=== PATIENT | female | born 1975 | race Caucasian/White ===

== ENCOUNTER 2017-12-13 19:37 | Observation (INO) | payer MEDICAID, SELFPAY ==
[2017-12-13 19:38] VITALS: BP 162/99; PULSE 114; RESP 15; TEMP 36.7; O2SAT 93; BMI 49.9
[2017-12-13 20:00] LABS: Bedside Glucose > 500 mg/dL (70-110)
--- NOTE | 2017-12-13 20:23 | ED.RN ---
CHECKED PT'S BLOOD SUGAR IN TRIAGE AND NOTED AT 586. PT IS ASYMPTOMATIC AND REPORTS SHE TOOK 35 UNITS OF NOVOLOG AT HOME APPROX 30-1HR PLUMBING MECHANIC TO ED. CHARGE NURSE MADE AWARE.
[2017-12-13 21:01] LABS: Bedside Glucose > 500 mg/dL (70-110)
[2017-12-13 22:30] VITALS: BP 142/85; PULSE 117; RESP 18; O2SAT 94
[2017-12-13 22:41] LABS: Bacteria 0 SEEN /hpf (None Seen); Mucous, Urine 0 SEEN /hpf (<or=2+); Red Blood Cells-Urine 0 SEEN /hpf (0-5)
[2017-12-13 22:43] LABS: Color, Urine Straw (Yellow); Glucose, Dipstick 1000 mg/dl (Normal); Ketone-Dipstick Negative (Negative); Leukocyte Esterase-Dipstick Negative /ul (Negative); Nitrite-Dipstick Negative (Negative); Occult Blood-Urine Negative /ul (Negative); Protein-Dipstick Negative (Negative); Specific Gravity, Urine 1.005 (1.002-1.030); Urine Bilirubin Dipstick Negative (Negative); Urine Clarity Clear (Clear); Urine Urobilinogen Normal (Normal)
[2017-12-13] MEDS: 0.9% Normal Saline 1,000 ML 1000 ML IV (22:45)
[2017-12-13 22:50] LABS: Squamous Epithelial Cells - UA 0-5 SEEN /hpf (5-10); Yeast-Urine 1+ /hpf (None Seen)
[2017-12-13 22:52] LABS: White Blood Cells 0-5 SEEN /hpf (0-5)
[2017-12-13 22:53] LABS: Absolute Lymphocyte Count 2.03 X10^3/ul (0.83-4.51); Absolute Neutrophil Count 13.5 X10^3/uL (2.0-7.7); Basophil# 0.03 X10^3/uL; Basophil% 0.2 % (0-1); Eosinophil# 0.11 X10^3/uL; Eosinophils% 0.7 % (0-5); Hematocrit 44.4 % (37-47); Hemoglobin 14.1 g/dl (12.0-15.0); Lymphocyte # 2.03 X10^3/ul (4.0); Lymphocyte % 12.5 % (19-41); Mean Corp Hgb Conc 31.8 g/gl (32-36); Mean Corpuscular Hgb 30.1 pg (27.0-32.0); Mean Corpuscular Volume 94.7 fL (81-99); Mean Platelet Vol. 10.6 fl (6.2-12.0); Monocyte# 0.44 X10^3/uL; Monocyte% 2.7 % (0-10); Neutrophil # 13.51 X10^3/uL (2.7-7.7); Neutrophil % 83.5 % (47-70); POSITIVE COUNT NO; POSITIVE DIFFERENTIAL NO; POSITIVE MORPHOLOGY NO; Platelet Count 253 K/mm3 (150-450); RBC Distribution Width CV 14.5 % (11.6-14.6); RBC Distribution Width SD 49.2 fl (35.1-43.9); Red Blood Count 4.69 M/mm3 (4.2-5.4); White Blood Count 16.2 K/mm3 (4.4-11.0)
[2017-12-13 22:57] LABS: Anion Gap 8 (5-15); BUN 11 mg/dL (7-18); BUN/Creat Ratio 12.3 RATIO (10-20); Calcium,Total 9.5 mg/dL (8.5-10.1); Chloride 96 mmol/L (98-107); Creatinine, Serum 0.89 mg/dL (0.55-1.02); EST Glomerular Filtration Rate 74 mL/min (>60); Est Glom Filt Rate - Afr Amer 90 mL/min (>60); Estimated Creatinine Clearance 75.61 ml/min; Glucose 513 mg/dL (70-110); Potassium 3.6 mmol/L (3.5-5.1); Sodium Level 135 mmol/L (136-145)
--- NOTE | 2017-12-13 22:57 | ED.RN ---
lab called with critical lab results. glucose 513. Dr. montes made aware no new orders at this time
[2017-12-13] MEDS: Ondansetron 4 MG/2 ML Vial IV (23:03)
--- NOTE | 2017-12-13 23:05 | RAD_ITS ---
XR Chest 1 View INDICATION: sob COMPARISON: None FINDINGS: The heart size appears mildly enlarged, unchanged. The pulmonary vascularity is within normal limits. There is no evidence of focal airspace consolation or pleural effusion. The osseous structures are grossly unremarkable.. RAD/Chest 1 View (Portable) IMPRESSION: Stable mild prominence of the cardiac silhouette. No acute findings. at 6004 Reported and signed by: Omaira Montes MD Electronically Signed: Omaira Montes MD at 22:52 EST Tel , Service support ,
--- NOTE | 2017-12-13 23:07 | ED.VISSUMM ---
- ER Visit Summary Date of Service: 12/13/17 Chief Complaint: [High blood sugar and right knee pain] History of Present Illness: The patient is a 42 F [presents the emergency department with complaint of elevated blood sugars for the last several months. Patient states that today her meter just read high. Patient also complains of pain in both lower extremities with a burning sensation. Patient states that she has had some chronic neuropathy type pain in the past but they are more uncomfortable today. Patient also started with significant right knee pain today. Patient denies any trauma to her knee. Patient denies any chest pain or shortness of breath. Patient has had a little bit of a cough. She denies any fevers. She has had history of cellulitis in the past. Patient is diabetic and has a history of hypertension, neuropathy, anxiety, high cholesterol, and coronary artery disease.] Physical Examination: [HEENT-PERRLA, EOMI. Cranial nerves II through XII grossly intact. TMs clear. Mucous membranes moist. No adenopathy. Cardiovascular-regular rate and rhythm without murmur or ectopy Lungs-clear to auscultation, chest wall stable without crepitus or subcu emphysema Abdomen-normoactive bowel sounds, soft, nontender, no rebound or rigidity, no peritoneal signs. Extremities-intact ?4, normal range of motion, normal pulses. Patient has some faint erythema to both lower extremities below the knee and they are warm to the touch. Patient has diffuse tenderness to the right knee with range of motion. There is no effusion. She is neurovascular intact distally. The right knee is atraumatic. Test Results: [CBC with differential obtained for white blood cell count 16,000, hemoglobin 14, hematocrit 44, platelets 253. Chemistries unremarkable. Glucose was 513. Acetone was negative. Urinalysis was normal. Chest x-ray is pending.] Emergency Department Course and Treatment: [She was given a liter normal same fluid bolus.] Patient given aspartate insulin 10 units subcu. She was started on Unasyn 3 g IV. Treatment Plan: [Patient will be admitted for further management of her cellulitis and hyperglycemia] Disposition: [Admit] Impression: [Hyperglycemia Cellulitis bilateral lower extremities. Right knee pain-acute on chronic] This note was generated with RegisterPatientation software. It may contain incorrect words, spelling, and punctuation that were not noted in review of the chart prior to signing ED Disposition - Plan for ED Patient: Chief Complaint: Hyperglycemia Referrals: Tino Oreilly MD [Primary Care Provider] -
--- NOTE | 2017-12-13 23:14 | ED.DCSUM_ITS ---
- ER Visit Summary Date of Service: 12/13/17 Chief Complaint: [High blood sugar and right knee pain] History of Present Illness: The patient is a 42 F [presents the emergency department with complaint of elevated blood sugars for the last several months. Patient states that today her meter just read high. Patient also complains of pain in both lower extremities with a burning sensation. Patient states that she has had some chronic neuropathy type pain in the past but they are more uncomfortable today. Patient also started with significant right knee pain today. Patient denies any trauma to her knee. Patient denies any chest pain or shortness of breath. Patient has had a little bit of a cough. She denies any fevers. She has had history of cellulitis in the past. Patient is diabetic and has a history of hypertension, neuropathy, anxiety, high cholesterol, and coronary artery disease.] Physical Examination: [HEENT-PERRLA, EOMI. Cranial nerves II through XII grossly intact. TMs clear. Mucous membranes moist. No adenopathy. Cardiovascular-regular rate and rhythm without murmur or ectopy Lungs-clear to auscultation, chest wall stable without crepitus or subcu emphysema Abdomen-normoactive bowel sounds, soft, nontender, no rebound or rigidity, no peritoneal signs. Extremities-intact ?4, normal range of motion, normal pulses. Patient has some faint erythema to both lower extremities below the knee and they are warm to the touch. Patient has diffuse tenderness to the right knee with range of motion. There is no effusion. She is neurovascular intact distally. The right knee is atraumatic. Test Results: [CBC with differential obtained for white blood cell count 16,000 , hemoglobin 14, hematocrit 44, platelets 253. Chemistries unremarkable. Glucose was 513. Acetone was negative. Urinalysis was normal. Chest x-ray is pending.] Emergency Department Course and Treatment: [She was given a liter normal same fluid bolus.] Patient given aspartate insulin 10 units subcu. She was started on Unasyn 3 g IV. Treatment Plan: [Patient will be admitted for further management of her cellulitis and hyperglycemia] Disposition: [Admit] Impression: [Hyperglycemia Cellulitis bilateral lower extremities. Right knee pain-acute on chronic] This note was generated with ItsMyURLsation software. It may contain incorrect words, spelling, and punctuation that were not noted in review of the chart prior to signing ED Disposition - Plan for ED Patient: Chief Complaint: Hyperglycemia Referrals: Tino Oreilly MD [Primary Care Provider] -
--- NOTE | 2017-12-13 23:37 | HP.PCM_ITS ---
Problem List (1) Hyperglycemia Status: Acute (2) Cellulitis Status: Acute (3) Abscess Status: Acute (4) Hyperglycemia due to type 2 diabetes mellitus Status: Acute Qualifiers: Diabetes mellitus intermediate insulin use: with middle or intermediate school principal use Qualified Code( s): E11.65 - Type 2 diabetes mellitus with hyperglycemia; Z79.4 - half-way ( current) use of insulin; Z79.4 - half-way (current) use of insulin; Z79.4 - buttermaker continuous churn (current) use of insulin; Z79.4 - buttermaker continuous churn (current) use of insulin (5) NSTEMI (non-ST elevated myocardial infarction) Status: Acute (6) Anxiety Status: Chronic (7) Diabetes mellitus Status: Chronic Qualifiers: Diabetes mellitus type: type 2 Diabetes mellitus complication status: with neurologic complications Diabetes mellitus complication detail: with polyneuropathy Diabetes mellitus middle or intermediate school principal insulin use: with intermediate use Qualified Code(s): E11.42 - Type 2 diabetes mellitus with diabetic polyneuropathy; Z79.4 - buttermaker continuous churn (current) use of insulin; Z79.4 - buttermaker continuous churn ( current) use of insulin; Z79.4 - buttermaker continuous churn (current) use of insulin; Z79.4 - half-way (current) use of insulin (8) History of MRSA infection Status: Chronic History of Present Illness Date of Admission: 12/13/17 Chief Complaint: Cellulitis The patient is a 42 year old female w/ h/o PNA, HTN, DMII and noncompliant admitted for cellulitis. Pt has increase warmth and swelling in both legs. Left leg appeared worse than rigth. There is mild dull aching pain associated with the swelling. Pain is constant and nothing makes it better or worse. She also has poorly controlled blood sugars. She has been having difficulty compliant w/ diet at home. Her blood sugars has been high since being discharged from the hospital in August. Lately, her blood sugars has been in the 300-400s. Today, her blood sugar readings are too high to even measure. She went to the ED for further workup. Past Medical History Past Medical History (Chronic Problems): Chronic Problems (Last Reviewed 12/04/17 @ 08:04 by FADUMO Parry) Respiratory failure with hypoxia (Chronic) Hypertension (Chronic) 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 (Chronic) 23/17 cmH20 Anxiety (Chronic) History of MRSA infection (Chronic) Diabetes mellitus (Chronic) Morbid obesity (Chronic) Hyperlipidemia (Chronic) Tobacco abuse (Chronic) Allergies cyclobenzaprine HCl [From Flexeril] Allergy (Verified 12/13/17 19:42) Hives venlafaxine [From Effexor] Adverse Reaction (Severe, Verified 12/13/17 19:42) unknown Home Medications: Ambulatory Orders Medication Instructions Recorded Buspirone HCl [Buspar] 15 mg PO TID PRN PRN 09/29/13 Lansoprazole [Prevacid] 25 mg PO DAILY 09/29/13 Lisinopril [Zestril] 20 mg PO DAILY 09/29/13 Hydrochlorothiazide [Hctz] 25 mg PO DAILY 02/02/17 Aspirin [Aspirin, Baby] 81 mg PO DAILY 03/26/17 Multivits,Ca,Minerals/Iron/FA 1 ea PO DAILY 03/26/17 [Women's Daily Formula Caplet] [place]-3 Fatty Acids [[place]-3] 1,000 mg PO DAILY 03/26/17 Gabapentin [Neurontin] 400 mg PO TID 05/29/17 Furosemide [Lasix] 40 mg PO DAILY 07/30/17 Lorazepam [Ativan] 1 mg PO BID PRN PRN 07/30/17 Albuterol Inhaler [Ventolin Hfa] 1 - 2 puff INHALATION Q4H PRN PRN 09/04/17 #1 inhaler Glimepiride [Amaryl] 4 mg PO DAILY 09/11/17 Oxygen, Home [Home Oxygen] 2 - 3 lpm NASAL DAILY #1 unit 09/13/17 B12/Levomefolate Calcium/B-6 1 ea PO DAILY 10/07/17 [Folbic Rf Tablet] Dicyclomine HCl [Bentyl] 20 mg PO DAILY 10/07/17 Insulin Aspart [Novolog Flexpen] 35 units SC TIDCM #0 10/08/17 Insulin Glargine,Hum.rec.anlog 75 unit SQ BREAKFAST #0 10/08/17 [Basaglar Kwikpen U-100] metformin 1,000 mg tablet 1,000 mg PO BID 11/14/17 oxycodone 5 mg tablet 5 mg PO Q6H PRN tab 11/14/17 Surgical History: no surgical history Psychiatric History: Anxiety OPTICS TECHNICAL OFFICER History: No pertinent OPTICS TECHNICAL OFFICER history Smoking Status: Current every day smoker - *Family History Maternal Family History: Family History (Last Reviewed 12/04/17 @ 08:04 by FADUMO Parry) Father CVA (cerebral vascular accident) Heart disease Diabetes History Items: No pertinent history Review of Systems Constitutional: Denies: Chills, Fever, Weight Change HEENT: Denies: Head Aches, Sinus Congestion, Sinus Drainage Cardiovascular: Denies: Chest Pain, Palpitations Respiratory: Denies: Cough, Shortness of breath at rest, Sputum production Gastrointestinal: Denies: Abdominal Pain, Nausea, Vomiting Genitourinary: Denies: Dysuria Musculoskeletal: Denies: Joint Pain, Joint Tenderness Skin: Reports: Rash, Skin Changes. Denies: Wounds Neurological: Denies: Numbness, Tingling, Focal weakness Psychiatric: Denies: Anxiety, Depression, Homicidal Ideations, Suicidal Ideations Hematologic/ Lymphatic: Denies: Easy Bruising, Easy Bleeding VTE Information - Inpt Only VTE Present on Admission: No VTE Mechan Device Prophylaxis: None VTE Pharm Prophylaxis ordered?: Yes Patient Problems: Active and Suspected Problems (Last Reviewed 12/04/17 @ 08:04 by FADUMO Parry) Hyperglycemia (Acute) Cellulitis (Acute) - Physical Exam General: Alert, Oriented x3, Cooperative HEENT: Atraumatic, PERRLA, EOMI, Normocephalic Neck: Supple, No JVD, Negative Carotid Bruits Lungs: Clear to auscultation, Normal air movement Cardiovascular: Regular rate, No murmurs Abdomen: Bowel Sounds Present, Soft, Non Tender Extremities: Capillary Refill Less than 3 Seconds, Edema, - - Cellulitis Skin: No rashes, No breakdown Musculoskeletal: No Tenderness to Palpation of Joints or Extremities Neurological: Cranial nerves II-XII grossly intact Psych/Mental Status: Normal Affect, Appropriate Vital Signs Temp Pulse Resp BP Pulse Ox 98.1 F 117 H 18 142/85 H 94 12/13/17 19:38 12/13/17 22:30 12/13/17 22:30 12/13/17 22:30 12/13/17 22:30 Oxygen Delivery Method Room Air Weight: 136.078 kg Body Mass Index (BMI) 49.9 Finger Stick Blood Glucose 405 Laboratory Tests Past 24 Hrs 12/13/17 12/13/17 12/13/17 21:00 21:00 21:00 WBC 16.2 H RBC 4.69 Hgb 14.1 Hct 44.4 MCV 94.7 MCH 30.1 MCHC 31.8 L RDW 14.5 RDW Differential 49.2 H Plt Count 253 MPV 10.6 Immature Gran % (Auto) 0.400 Neut % (Auto) 83.5 H Lymph % (Auto) 12.5 L [place] % (Auto) 2.7 Eos % (Auto) 0.7 Baso % (Auto) 0.2 Absolute Neuts (auto) 13.5 H Absolute Lymphs (auto) 2.03 Total Counted Not Reportable Sodium 135 L Potassium 3.6 Chloride 96 L Carbon Dioxide 31.0 Anion Gap 8 BUN 11 Creatinine 0.89 Estim Creat Clear Calc 75.61 Est GFR (MDRD) Af Amer 90 Est GFR (MDRD) Non-Af 74 BUN/Creatinine Ratio 12.3 Glucose 513 H* Calcium 9.5 Urine Color Urine Clarity Urine pH Ur Specific [place] Urine Protein Urine Glucose (UA) Urine Ketones Urine Occult Blood Urine Nitrite Urine Bilirubin Urine Urobilinogen Ur Leukocyte Esterase Urine RBC Urine WBC Ur Squamous Epith Cells Urine Bacteria Urine Mucus Urine Yeast Acetone Level NEGATIVE 12/13/17 21:19 WBC RBC Hgb Hct MCV MCH MCHC RDW RDW Differential Plt Count MPV Immature Gran % (Auto) Neut % (Auto) Lymph % (Auto) [place] % (Auto) Eos % (Auto) Baso % (Auto) Absolute Neuts (auto) Absolute Lymphs (auto) Total Counted Sodium Potassium Chloride Carbon Dioxide Anion Gap BUN Creatinine Estim Creat Clear Calc Est GFR (MDRD) Af Amer Est GFR (MDRD) Non-Af BUN/Creatinine Ratio Glucose Calcium Urine Color Straw Urine Clarity Clear Urine pH 6.0 Ur Specific [place] 1.005 Urine Protein Negative Urine Glucose (UA) 1000 H Urine Ketones Negative Urine Occult Blood Negative Urine Nitrite Negative Urine Bilirubin Negative Urine Urobilinogen Normal Ur Leukocyte Esterase Negative Urine RBC 0 SEEN Urine WBC 0-5 SEEN Ur Squamous Epith Cells 0-5 SEEN Urine Bacteria 0 SEEN Urine Mucus 0 SEEN Urine Yeast 1+ Acetone Level POC Glucose 12/13/17 12/13/17 20:56 19:48 POC Glucose > 500 H* > 500 H* Assessment/Plan Active and Suspected Problems (Last Reviewed 12/04/17 @ 08:04 by Nelly Hunter, CEMENT DESPATCH OPERATOR-C) Hyperglycemia (Acute) Cellulitis (Acute) 42 year old female w/ h/o PNA, HTN, DMII and noncompliant admitted for cellulitis. 1) Cellulitis: Will start cefazolin. If still progressing, then will broaden spectrum. Suspect poor hygiene and poor blood sugar control leading to infection. Cultures pending. 2) DMII: Poorly controlled. Most likely secondary to noncompliant. Infection is probably worsening glucose control. Will resume meds. Will add sliding scale. Monitor. 3) Chronic respiratory failure: C/w oxygen. No increase oxygen demand noted. Supportive care. 4) Prophylaxis: Heparin
--- NOTE | 2017-12-13 23:39 | ED.RN ---
PT BILATERAL LOWER LEGS HOT TO TOUCH AND TENDER. PT HX OF CELLULITIS. SKIN ERYTHEMIC. RIGHT LEG MORE TENDER THAN LEFT. DR. BAKER ASSESSED LEGS, CONCERNED FOR CELLULITIS.
[2017-12-13 23:42] VITALS: BP 145/86; PULSE 118; RESP 19; TEMP 36.6; O2SAT 100
[2017-12-14] VITALS (7 sets, daily range): BP systolic 97–136; BP diastolic 44–76; PULSE 97–120; RESP 16–25; TEMP 36.7–37.3; O2SAT 93–98; BMI 62.4
--- NOTE | 2017-12-14 00:31 | ED.RN ---
lab called with critical lab results. lactic acid 2.1. Dr. montes made aware. no new orders at this time
[2017-12-14 00:32] LABS: Lactic Acid 2.1 mmol/L (0.4-2.0)
[2017-12-14 00:32] LABS: Bedside Glucose 384 mg/dL (70-110)
--- NOTE | 2017-12-14 00:39 | ED.RN ---
MED SURG CELLULITIS DOMINGO
[2017-12-14] MEDS: 0.9% Normal Saline 1,000 ML 150 ML IV ×3 (02:15→18:28)
[2017-12-14] MEDS: 0.9% NaCl Peripheral Flush Adult/Peds IV (02:15)
[2017-12-14 02:34] LABS: Lactic Acid 1.7 mmol/L (0.4-2.0)
[2017-12-14] MEDS: oxyCODONE 5 MG Tablet PO ×4 (03:06→18:38)
[2017-12-14] MEDS: LORazepam 1 MG Tablet PO (03:07)
[2017-12-14 03:48] LABS: Reflex Lactate? Y
[2017-12-14] MEDS: Cefazolin 1 GM/50 ML BAG IV ×2 (07:33→14:29)
[2017-12-14] MEDS: Heparin Injection 5,000 UNITS/ML Syringe 5000 UNITS SC ×2 (07:33→14:31)
[2017-12-14] MEDS: Dicyclomine 10 MG Capsule 20 MG PO (07:33)
[2017-12-14 09:06] LABS: Bedside Glucose 344 mg/dL (70-110)
[2017-12-14 09:06] LABS: Bedside Glucose 349 mg/dL (70-110)
[2017-12-14] MEDS: Furosemide 40 MG Tablet PO (09:10)
[2017-12-14] MEDS: Omega-3 Acid Ethyl Esters 1 GM Capsule PO (09:10)
[2017-12-14] MEDS: Glimepiride 2 MG Tablet PO (09:10)
[2017-12-14] MEDS: Aspirin 81 MG TAB.CHEW PO (09:10)
[2017-12-14] MEDS: Pantoprazole Sodium 40 MG Tablet PO (09:10)
[2017-12-14] MEDS: Multivitamins,Ther W-Minerals Tablet 1 TABLET PO (09:10)
[2017-12-14] MEDS: hydroCHLOROthiazide 25 MG Tablet PO (09:10)
[2017-12-14] MEDS: Lisinopril 20 MG Tablet PO (09:10)
[2017-12-14] MEDS: Gabapentin 400 MG Capsule PO ×3 (09:10→18:26)
--- NOTE | 2017-12-14 09:30 | VDLE_ITS ---
Reason For Study: BLE swelling RIGHT LEFT GSV is normal. GSV is normal. CFV is compressible, spontaneous, phasic, CFV is compressible, spontaneous, phasic, competent and demonstrates normal competent, and demonstrates normal augmentation. augmentation. FV is compressible, spontaneous, phasic, FV is compressible, spontaneous, phasic, competent and demonstrates normal competent and demonstrates normal augmentation. augmentation. POP V is compressible, spontaneous, phasic, POP V is compressible, spontaneous, phasic, competent and demonstrates normal competent and demonstrates normal augmentation. augmentation. T/P Trunk is compressible. T/P Trunk is compressible. PTV is compressible. PTV is compressible. RT PerV is compressible. LT PerV is compressible. Procedure Exam performed portable in patient room. The study was technically difficult. Due to obesity - 375#. A preliminary report was called and/or faxed to [facility]. Interpretation Summary Deep veins of the lower extremities are bilaterally patent and compressible segmentally. There is no evidence of deep vein thrombosis on either side. Valvular competence appears intact within the proximal deep venous systems bilaterally. The greater saphenous veins appear bilaterally patent and compressible segmentally. Ordering Physician: Chun Craig Referring Physician: carla Oreilly Performed By: Anita Metzger, ANETA, RVT
--- NOTE | 2017-12-14 09:31 | PCM.PN.HOSP ---
Patient Problems: Active and Suspected Problems (Last Reviewed 12/04/17 @ 08:04 by FADUMO Parry) Hyperglycemia (Acute) Cellulitis (Acute) Subjective: CC: Bilateral lower extremity swelling and pain This is a 42 year old female DMII , HTN and morbid obesity who presented with increasing warmth and swelling in both legs. She was admitted to the hospital for treatment of cellulitis and that she is receiving IV antibiotics with minimal improvement. Post no shortness of breath, fever or chills. Vitals/I&O's: Vital Signs Temp Pulse Resp BP Pulse Ox 98.8 F 104 H 20 H 134/50 H 93 12/14/17 08:54 12/14/17 08:54 12/14/17 08:54 12/14/17 08:54 12/14/17 08:54 Oxygen Flow Rate 3 Oxygen Delivery Method Nasal Cannula Weight: 170.2 kg Body Mass Index (BMI) 62.4 Finger Stick Blood Glucose 384 Intake and Output for Last 24 Hours 12/12/17 12/13/17 12/14/17 23:59 23:59 23:59 Intake Total 2067 Balance 2067 General: Alert, Oriented x3 Neck: Supple, No JVD Lungs: Clear to auscultation, No wheeze Cardiovascular: Normal S1, Normal S2 Abdomen: Bowel Sounds Present, Soft, Non Tender Extremities: Edema Skin: No rashes Neurological: Cranial nerves II-XII grossly intact, Motor Exam 5/5 strength throughout Laboratory Results 12/14/17 01:58: Lactic Acid 1.7 12/14/17 07:45: POC Glucose 344 H 12/14/17 08:57: POC Glucose 349 H Current Medications Aspir[facility]in, Baby) [facility] Last Admin: 12/14/17 09:10 Dose: 81 mg Buspirone HCl (Buspirone Hcl) 15 mg PO TID PRN PRN Reason: ANXIETY Dextrose (D50w Syringe) 0 gm IV X1 PRN; Protocol PRN Reason: Hypoglycemia Dicyclomine HCl (Bentyl) 20 mg PO DAILY@0730 [facility] Last Admin: 12/14/17 07:33 Dose: 20 mg Furosemide (Lasix) 40 mg PO DAILY [facility] Last Admin: 12/14/17 09:10 Dose: 40 mg Gabapentin (Neurontin) 400 mg PO TIDCM [facility] Last Admin: 12/14/17 09:10 Dose: 400 mg Glucagon () 1 mg IM .X1 PRN PRN Reason: Hypoglycemia Heparin Sodium (Porcine) () 5,000 units SC Q8 [facility] Last Admin: 12/14/17 07:33 Dose: 5,000 units Hydrochlorothiazide (Hctz) 25 mg PO DAILY [facility] Last Admin: 12/14/17 09:10 Dose: 25 mg Sodium Chloride () 1,000 mls @ 150 mls/hr IV .[id number] [facility] Last Admin: 12/14/17 09:18 Dose: 150 mls/hr Cefazolin Sodium () 1 gm in 50 mls @ 150 mls/hr IV Q8 [facility] Last Admin: 12/14/17 07:33 Dose: 150 mls/hr Sodium Chloride () 250 mls @ 15 mls/hr IV .[id number] PRN PRN Reason: SALINE FLUSH Insulin Aspart (Novolog Flexpen (Bkc)) 0 units SC TIDCM [facility] PRN Reason: Protocol Last Admin: 12/14/17 09:19 Dose: 47 u Insulin Aspart (Novolog Flexpen (Bkc)) 35 units SC TIDCM [facility] Last Admin: 12/14/17 09:19 Dose: 35 u Insulin Detemir (Levemir (Bkc)) 75 units SC BREAKFAST [facility] Last Admin: 12/14/17 09:10 Dose: 75 u Lisinopril (Zestril) 20 mg PO DAILY [facility] Last Admin: 12/14/17 09:10 Dose: 20 mg Lorazepam (Ativan) 1 mg PO DAILY PRN PRN PRN Reason: ANXIETY Last Admin: 12/14/17 03:07 Dose: 1 mg Multivitamins/Minerals (Multivitamin With Minerals) 1 tablet [facility] Last Admin: 12/14/17 09:10 Dose: 1 tablet Non-Formulary Medication (B12/Levomefolate Calcium/B-6 [Folbic Rf Tablet]) 1 ea PO DAILY [facility] Vheae-6-Xwpb Ethyl Esters (Lovaza) 1 gm PO DAILY [facility] Last Admin: 12/14/17 09:10 Dose: 1 gm Oxycodone HCl (Oxyir) 5 mg PO Q4H PRN PRN PRN Reason: Moderate Pain (pain scale 4-5) Last Admin: 12/14/17 09:06 Dose: 5 mg Pantoprazole Sodium (Protonix) 40 mg PO DAILY [facility] Last Admin: 12/14/17 09:10 Dose: 40 mg Sodium Chloride () 5 - 30 ml IV UD PRN PRN Reason: SALINE FLUSH Last Admin: 12/14/17 02:15 Dose: 10 ml Assessment/Plan Active and Suspected Problems (Last Reviewed 12/04/17 @ 08:04 by Nelly Hunter NP-C) Hyperglycemia (Acute) Cellulitis (Acute) 1. Bilateral lower extremity swelling and pain; we will continue antibiotics for treatment of presumptive cellulitis, we will place her on IV Lasix and keep legs elevated. Doppler ultrasound of the lower extremities is yet to be completed. 2. DM 2 hyperglycemia; she is recommended to adhere to her hypoglycemic regimen , we will hold off oral hypoglycemic agents for now, we will continue her on Levemir and insulin sliding scale for now. 3. Morbid obesity; weight loss is recommended 4. Essential hypertension; she is on lisinopril and hydrochlorothiazide 5. History of type II NSTEMI in 08/2017; she underwent left heart catheterization last August and it revealed normal coronaries and normal ejection fraction. 6. LOGAN; HS CPAP 7. Chronic respiratory failure with hypoxia; she is on supplemental oxygen, etiology of her chronic respiratory failure is not fully elucidated. 10. DVT prophylaxis with subcutaneous heparin. Code Visit Inpatient E&M: 49249 Subs Hosp L2
--- NOTE | 2017-12-14 09:34 | PN_ITS ---
Patient Problems: Active and Suspected Problems (Last Reviewed 12/04/17 @ 08:04 by FADUMO Parry) Hyperglycemia (Acute) Cellulitis (Acute) Subjective: CC: Bilateral lower extremity swelling and pain This is a 42 year old female DMII , HTN and morbid obesity who presented with increasing warmth and swelling in both legs. She was admitted to the hospital for treatment of cellulitis and that she is receiving IV antibiotics with minimal improvement. Post no shortness of breath, fever or chills. Vitals/I&O's: Vital Signs Temp Pulse Resp BP Pulse Ox 98.8 F 104 H 20 H 134/50 H 93 12/14/17 08:54 12/14/17 08:54 12/14/17 08:54 12/14/17 08:54 12/14/17 08:54 Oxygen Flow Rate 3 Oxygen Delivery Method Nasal Cannula Weight: 170.2 kg Body Mass Index (BMI) 62.4 Finger Stick Blood Glucose 384 Intake and Output for Last 24 Hours 12/12/17 12/13/17 12/14/17 23:59 23:59 23:59 Intake Total 2067 Balance 2067 General: Alert, Oriented x3 Neck: Supple, No JVD Lungs: Clear to auscultation, No wheeze Cardiovascular: Normal S1, Normal S2 Abdomen: Bowel Sounds Present, Soft, Non Tender Extremities: Edema Skin: No rashes Neurological: Cranial nerves II-XII grossly intact, Motor Exam 5/5 strength throughout Laboratory Results 12/14/17 01:58: Lactic Acid 1.7 12/14/17 07:45: POC Glucose 344 H 12/14/17 08:57: POC Glucose 349 H [facility] Admin: 12/14/17 09:10 Dose: 81 mg Buspirone HCl (Buspirone Hcl) 15 mg PO TID PRN PRN Reason: ANXIETY Dextrose (D50w Syringe) 0 gm IV X1 PRN; Protocol PRN Reason: Hypoglycemia Dicyclomine HCl (Bentyl) 20 mg PO DAILY@0730 [facility] Last Admin: 12/14/17 07:33 Dose: 20 mg Furosemide (Lasix) 40 mg PO DAILY [facility] Last Admin: 12/14/17 09:10 Dose: 40 mg Gabapentin (Neurontin) 400 mg PO TIDCM [facility] Last Admin: 12/14/17 09:10 Dose: 400 mg Glucagon () 1 mg IM .X1 PRN PRN Reason: Hypoglycemia Heparin Sodium (Porcine) () 5,000 units SC Q8 [facility] Last Admin: 12/14/17 07:33 Dose: 5,000 units Hydrochlorothiazide (Hctz) 25 mg PO DAILY [facility] Last Admin: 12/14/17 09:10 Dose: 25 mg Sodium Chloride () 1,000 mls @ 150 mls/hr IV .Q6H40M [facility] Last Admin: 12/14/17 09:18 Dose: 150 mls/hr Cefazolin Sodium () 1 gm in 50 mls @ 150 mls/hr IV Q8 [facility] Last Admin: 12/14/17 07:33 Dose: 150 mls/hr Sodium Chloride () 250 mls @ 15 mls/hr IV .[id number] PRN PRN Reason: SALINE FLUSH Insulin Aspart (Novolog Flexpen (Bkc)) 0 units SC TIDCM [facility] PRN Reason: Protocol Last Admin: 12/14/17 09:19 Dose: 47 u Insulin Aspart (Novolog Flexpen (Bkc)) 35 units SC TIDCM [facility] Last Admin: 12/14/17 09:19 Dose: 35 u Insulin Detemir (Levemir (Bkc)) 75 units SC BREAKFAST [facility] Last Admin: 12/14/17 09:10 Dose: 75 u Lisinopril (Zestril) 20 mg PO DAILY [facility] Last Admin: 12/14/17 09:10 Dose: 20 mg Lorazepam (Ativan) 1 mg PO DAILY PRN PRN PRN Reason: ANXIETY Last Admin: 12/14/17 03:07 Dose: 1 mg Multivitamins/Minerals ([facility]ivitamin With Minerals) [facility] Last Admin: 12/14/17 09:10 Dose: 1 tablet Non-Formulary Medication (B12/Levomefolate Calcium/B-6 [Folbic Rf Tablet]) 1 ea PO DAILY [facility] [id number] Ethyl Esters (Lovaza) 1 gm PO DAILY [facility] Last Admin: 12/14/17 09:10 Dose: 1 gm Oxycodone HCl (Oxyir) 5 mg PO Q4H PRN PRN PRN Reason: Moderate Pain (pain scale 4-5) Last Admin: 12/14/17 09:06 Dose: 5 mg Pantoprazole Sodium (Protonix) 40 mg PO DAILY [facility] Last Admin: 12/14/17 09:10 Dose: 40 mg Sodium Chloride () 5 - 30 ml IV UD PRN PRN Reason: SALINE FLUSH Last Admin: 12/14/17 02:15 Dose: 10 ml Assessment/Plan Active and Suspected Problems (Last Reviewed 12/04/17 @ 08:04 by Nelly Hunter NP-C) Hyperglycemia (Acute) Cellulitis (Acute) 1. Bilateral lower extremity swelling and pain; we will continue antibiotics for treatment of presumptive cellulitis, we will place her on IV Lasix and keep legs elevated. Doppler ultrasound of the lower extremities is yet to be completed. 2. DM 2 hyperglycemia; she is recommended to adhere to her hypoglycemic regimen , we will hold off oral hypoglycemic agents for now, we will continue her on Levemir and insulin sliding scale for now. 3. Morbid obesity; weight loss is recommended 4. Essential hypertension; she is on lisinopril and hydrochlorothiazide 5. History of type II NSTEMI in 08/2017; she underwent left heart catheterization last August and it revealed normal coronaries and normal ejection fraction. 6. LOGAN; HS CPAP 7. Chronic respiratory failure with hypoxia; she is on supplemental oxygen, etiology of her chronic respiratory failure is not fully elucidated. 10. DVT prophylaxis with subcutaneous heparin. Code Visit Inpatient E&M: 56007 Subs Hosp L2
[2017-12-14 12:46] LABS: Bedside Glucose 317 mg/dL (70-110)
[2017-12-14 17:21] LABS: Bedside Glucose 251 mg/dL (70-110)
[2017-12-15] MEDS: Cefazolin 1 GM/50 ML BAG IV ×3 (00:04→13:44)
[2017-12-15] MEDS: Heparin Injection 5,000 UNITS/ML Syringe 5000 UNITS SC ×2 (00:08→06:53)
[2017-12-15] MEDS: oxyCODONE 5 MG Tablet PO ×2 (00:12→08:49)
[2017-12-15 00:31] LABS: Bedside Glucose 347 mg/dL (70-110)
[2017-12-15 02:21] LABS: Bedside Glucose 323 mg/dL (70-110)
--- NOTE | 2017-12-15 02:21 | NURSING ---
Pt lying in bed with increased amounts of drowsiness. Face with flushed appearance and digital edema. Assessed BS which was 374, received an order for Novolog sliding scale, gave 12 units per protocol. Assessed pt 2 hours later, diaphoretic while asleep, BS 324. Pt is stable and will continue to monitor
[2017-12-15 03:41] VITALS: BP 127/71; PULSE 99; RESP 14; TEMP 37.3; O2SAT 97
[2017-12-15 07:32] VITALS: O2SAT 97
[2017-12-15] MEDS: 0.9% Normal Saline 1,000 ML 150 ML IV (07:45)
[2017-12-15 08:00] LABS: Bedside Glucose 446 mg/dL (70-110)
[2017-12-15] MEDS: Dicyclomine 10 MG Capsule 20 MG PO (08:28)
[2017-12-15] MEDS: Gabapentin 400 MG Capsule PO ×2 (08:29→12:16)
[2017-12-15] MEDS: Aspirin 81 MG TAB.CHEW PO (08:29)
[2017-12-15] MEDS: Multivitamins,Ther W-Minerals Tablet 1 TABLET PO (08:29)
[2017-12-15 08:50] VITALS: PULSE 92; O2SAT 98
[2017-12-15] MEDS: Omega-3 Acid Ethyl Esters 1 GM Capsule PO (09:54)
[2017-12-15] MEDS: hydroCHLOROthiazide 25 MG Tablet PO (09:54)
[2017-12-15] MEDS: Lisinopril 20 MG Tablet PO (09:54)
[2017-12-15] MEDS: Furosemide 40 MG Tablet PO (09:54)
[2017-12-15] MEDS: Pantoprazole Sodium 40 MG Tablet PO (09:54)
[2017-12-15 09:55] VITALS: BP 120/64; PULSE 96; RESP 18; TEMP 36.8; O2SAT 98
--- NOTE | 2017-12-15 10:49 | ECHOD_ITS ---
Reason For Study: Dyspnea/SOB Procedure This was a 2D Doppler, Color Flow transthoracic echocardiogram. The exam was of fair technical quality due to body habitus. The study was technically difficult. Exam performed portable in patient room. Left Ventricle Normal LV size. Left ventricular systolic function is normal. The estimated ejection fraction is 65 %. No regional wall motion abnormalities noted. Right Ventricle Normal RV size. Normal systolic function. Atria Normal left atrium. Normal right atrium. No doppler evidence for ASD. Mitral Valve There is no mitral annular calcification. Normal mitral valve. Trivial mitral valve insufficiency. Tricuspid Valve The tricuspid valve is not well visualized. Trivial tricuspid valve insufficiency. Right ventricular systolic pressure estimated to be 38 mmHg. Aortic Valve Trisinus/trileaflet aortic valve. Normal aortic valve. Pulmonic Valve The pulmonic valve is not well visualized. Trivial pulmonic valve insufficiency. Great Vessels Normal sized aortic root. Pericardium/Pleural No pericardial effusion. MMode/2D Measurements & Calculations LVIDd: 4.9 cm IVSd: 1.2 cm LVOT diam: 2.3 cm LVIDs: 3.5 cm LVPWd: 1.2 cm LVOT area: 4.1 cm2 RVDd: 4.9 cm FS: 28.6 % Ao root diam: 3.1 cm LAV(MOD-bp): 60.4 ml LA A4 area: 20.6 cm2 LA dimension: 4.3 cm LAV(MOD-sp2): 53.4 ml LAV(MOD-sp4): 59.7 ml RA A4 area: 14.4 cm2 Doppler Measurements & Calculations MV E max ad: 120.8 cm/sec Lat Peak E' Ad: 14.0 cm/sec Med Peak E' Ad: 9.0 cm/sec MV A max ad: 83.8 cm/sec E/E' lat: 8.6 E/E' med: 13.5 MV E/A: 1.4 Ao V2 max: 219.7 cm/sec LV V1 max: 157.5 cm/sec SV(LVOT): 121.4 ml Ao max P.3 mmHg LV V1 max P.9 mmHg Ao V2 mean: 157.9 cm/sec LV V1 mean P.2 mmHg Ao mean P.8 mmHg LV V1 mean: 119.8 cm/sec Ao V2 VTI: 40.0 cm LV V1 VTI: 29.5 cm MONI(I,D): 3.0 cm2 MONI(V,D): 2.9 cm2 PA V2 max: 125.1 cm/sec TR max ad: 297.5 cm/sec TR max P.4 mmHg Interpretation Summary The study was technically difficult. Left ventricular systolic function is normal. The estimated ejection fraction is 65 %. Trivial mitral valve insufficiency. Trivial tricuspid valve insufficiency. Trivial pulmonic valve insufficiency. Right ventricular systolic pressure estimated to be 38 mmHg. Ordering Physician: Jersey Pradhan Referring Physician: Eleuterio Oreilly Performed By: Kimber Valladares RDCS, RVT
--- NOTE | 2017-12-15 10:56 | PCM.DC ---
- Discharge Diagnoses Current Active Problems: Current Active and Chronic Problems (Last Reviewed 12/04/17 @ 08:04 by FADUMO Parry) Hyperglycemia (Acute) Cellulitis (Acute) You will use the following diet at home:: Calorie/Carbohydrate Controlled (specify 1200, 1400, etc) - 1800 Your food should be the consistency of: Regular Discharge Activity: May not drive while taking narcotic pain medications. Allergies/Adverse Reactions: Allergies cyclobenzaprine HCl [From Flexeril] Allergy (Verified 12/13/17 19:42) Hives venlafaxine [From Effexor] Adverse Reaction (Severe, Verified 12/13/17 19:42) unknown Medications to take at Discharge Buspirone HCl [Buspar] 15 mg PO TID PRN 09/29/13 Lansoprazole [Prevacid] 25 mg PO DAILY 09/29/13 Lisinopril [Zestril] 20 mg PO DAILY 09/29/13 Hydrochlorothiazide [Hctz] 25 mg PO DAILY 02/02/17 Aspirin [Aspirin, Baby] 81 mg PO DAILY 03/26/17 Multivits,Ca,Minerals/Iron/FA [Women's Daily Formula Caplet] 1 ea PO DAILY 03/26/17 [place]-3 Fatty Acids [[place]-3] 1,000 mg PO DAILY 03/26/17 Gabapentin [Neurontin] 400 mg PO TID 05/29/17 Furosemide [Lasix] 40 mg PO DAILY 07/30/17 Lorazepam [Ativan] 1 mg PO BID PRN PRN 07/30/17 Albuterol Inhaler [Ventolin Hfa] 1 - 2 puff INHALATION Q4H PRN PRN #1 inhaler 09/04/17 Glimepiride [Amaryl] 4 mg PO DAILY 09/11/17 Oxygen, Home [Home Oxygen] 2 - 3 lpm NASAL DAILY #1 unit 09/13/17 B12/Levomefolate Calcium/B-6 [Folbic Rf Tablet] 1 ea PO DAILY 10/07/17 Dicyclomine HCl [Bentyl] 20 mg PO DAILY 10/07/17 Insulin Aspart [Novolog Flexpen] 35 units SC TIDCM #0 10/08/17 Insulin Glargine,Hum.rec.anlog [Basaglar Kwikpen U-100] 75 unit SQ BREAKFAST #0 10/08/17 metformin 1,000 mg tablet 1,000 mg PO BID 11/14/17 oxycodone 5 mg tablet 5 mg PO Q6H PRN tab 11/14/17 Primary Care Physician: Tino Oreilly MD [Primary Care Provider] - Please follow up with your Primary Care Physician in: in 5-7 days Proposed Discharge Date: 12/15/17
--- NOTE | 2017-12-15 10:58 | PCM.DC.SUM ---
Discharge Date and Diagnosis Date of Admission: 12/13/17 Date of Discharge: 12/15/17 - Primary Discharge Diagnosis Active and Suspected Problems (Last Reviewed 12/04/17 @ 08:04 by FADUMO Parry) Hyperglycemia (Acute) - Secondary Discharge Diagnosis Chronic Problems (Last Reviewed 12/04/17 @ 08:04 by FADUMO Parry) Respiratory failure with hypoxia (Chronic) Hypertension (Chronic) 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 (Chronic) / cmH20 Anxiety (Chronic) History of MRSA infection (Chronic) Diabetes mellitus (Chronic) Morbid obesity (Chronic) Hyperlipidemia (Chronic) Tobacco abuse (Chronic) Hospital Course and Treatment Imaging Results: Clinical Impression(s) from Imaging Studies Chest X-Ray 12/13/17 23:05 IMPRESSION: Stable mild prominence of the cardiac silhouette. No acute findings. at 2354 Reported and signed by: Omaira Montes MD Electronically Signed: Omaira Montes MD at 22:52 EST Tel , Service support , Operations: None Summary of Care Provided: The patient is a 42 year old F with past medical history significant for hypertension, diabetes mellitus type 2 morbid obesity with BMI of 62.4 presented with increasing swelling involving both lower extremities 1. Bilateral lower extremity swelling and erythema: Patient [facility] presentation not consistent with cellulitis do suspect stasis dermatitis from possibly right-sided heart failure. Ordered a 2D echo to confirm the diagnosis of right-sided heart failure. Patient was however placed on antibiotics and admission underwent venous duplex which came back negative for DVT. Patient echo demonstrated RVSP of 38 mmHg was felt this was the reason for patient's bilateral lower extremity edema 2. 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 Morbid obesity with BMI of 62.4 patient does qualify for gastric bypass did discuss with patient to get in touch with PCP as soon as possible for possible referral 4. Hypertension-blood pressure controlled, home medications continued with dose adjustment as needed 5. Chronic hypoxic respiratory failure secondary to suspected obesity hypoventilation syndrome in addition to obstructive sleep apnea and bronchial asthma patient is on baseline home O2 6. 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 patient is on BiPAP at night 7. Irritable bowel syndrome 8. DVT prophylaxis SC heparin Discharge Diet: 1800 Calorie Control Diet Discharge Activity: May not drive while taking narcotic pain medications. Home Medications: Medications to take at Discharge Buspirone HCl [Buspar] 15 mg PO TID PRN 09/29/13 Lansoprazole [Prevacid] 25 mg PO DAILY 09/29/13 Lisinopril [Zestril] 20 mg PO DAILY 09/29/13 Hydrochlorothiazide [Hctz] 25 mg PO DAILY 02/02/17 Aspirin [Aspirin, Baby] 81 mg PO DAILY 03/26/17 Multivits,Ca,Minerals/Iron/FA [Women's Daily Formula Caplet] 1 ea PO DAILY 03/26/17 [place]-3 Fatty Acids [[place]-3] 1,000 mg PO DAILY 03/26/17 Gabapentin [Neurontin] 400 mg PO TID 05/29/17 Furosemide [Lasix] 40 mg PO DAILY 07/30/17 Lorazepam [Ativan] 1 mg PO BID PRN PRN 07/30/17 Albuterol Inhaler [Ventolin Hfa] 1 - 2 puff INHALATION Q4H PRN PRN #1 inhaler 09/04/17 Glimepiride [Amaryl] 4 mg PO DAILY 09/11/17 Oxygen, Home [Home Oxygen] 2 - 3 lpm NASAL DAILY #1 unit 09/13/17 B12/Levomefolate Calcium/B-6 [Folbic Rf Tablet] 1 ea PO DAILY 10/07/17 Dicyclomine HCl [Bentyl] 20 mg PO DAILY 10/07/17 Insulin Aspart [Novolog Flexpen] 35 units SC TIDCM #0 10/08/17 Insulin Glargine,Hum.rec.anlog [Basaglar Kwikpen U-100] 75 unit SQ BREAKFAST #0 10/08/17 oxycodone 5 mg tablet 5 mg PO Q6H PRN tab 11/14/17 Primary Care Physician: Tino Oreilly MD [Primary Care Provider] - Please follow up with your Primary Care Physician in: in 5-7 days Disposition: Home Minutes spent on discharge:: 35 Patient Condition:: Stable Meaningful Use Info Meaningful Use Diagnoses (Choose all that apply): None applicable Code Visit OBSV E&M: 09914 Observation care discharge
[2017-12-15 12:26] LABS: Bedside Glucose 400 mg/dL (70-110)
--- NOTE | 2017-12-15 12:56 | CASEMGMT ---
LORENZO GARCÍA Face to Face with patient for initial transition planning/care coordination assessment. RN CM introduced self and role at [facility]. Patient sitting on bedside, alert and oriented. Patient willing to participate in assessment and is able to answer all questions appropriately. Care providers, pharmacy, and demographics verified. See link attached. Patient wishes to discharge home, denies need for home health at this time. Patient states she has oxygen at home on 2lpm and has biPap machine at home. Patient states she has no further needs or concerns at this time. CM to follow for discharge planning needs that may arise. Disposition Plan: Patient to discharge home with family support, follow-up plans, and established home oxygen.
[2017-12-15 18:20] VITALS: BP 142/80; PULSE 102; RESP 18; TEMP 36.8; O2SAT 93
== END 2017-12-15 18:33 | disposition home or self-care (01) | DRG 18 ==
LOC: ED 22:25 → MS3 12-14 08:16
PROVIDERS: Internal Medicine; Admitting Provider Internal Medicine; Emergency Provider Emergency Medicine; Family Provider Family Medicine; PCP Family Medicine; Visit Provider Internal Medicine
DX: E11.65 Type 2 diabetes mellitus with hyperglycemia (principal); J96.11 Chronic respiratory failure with hypoxia; G89.29 Other chronic pain; E11.40 Type 2 diabetes mellitus with diabetic neuropathy, unspecified; I10 Essential (primary) hypertension; F41.9 Anxiety disorder, unspecified; G47.33 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 (adult) (pediatric); E66.01 Morbid (severe) obesity due to excess calories; Z68.44 Body mass index [BMI] 60.0-69.9, adult; E78.5 Hyperlipidemia, unspecified; K58.9 Irritable bowel syndrome, unspecified; I25.2 Old myocardial infarction; I87.2 Venous insufficiency (chronic) (peripheral); I25.10 Atherosclerotic heart disease of native coronary artery without angina pectoris; M25.561 Pain in right knee; F17.200 Nicotine dependence, unspecified, uncomplicated; Z99.81 Dependence on supplemental oxygen; Z79.4 Long term (current) use of insulin; Z79.82 Long term (current) use of aspirin; Z79.899 Other long term (current) drug therapy; Z91.19 Patient's noncompliance with other medical treatment and regimen; Z86.14 Personal history of Methicillin resistant Staphylococcus aureus infection
CPT/HCPCS: 36415; 71045; 80048; 81001; 82009; 82962; 83605; 85025; 87040; 93306; 93970; 97802; 99218; 99284; 99406; J7030; J7050; A4216; G0378; J0295; J2405

== ENCOUNTER 2018-02-28 20:56 | Emergency (ER) | payer MEDICAID, SELFPAY ==
[2018-02-28 20:57] VITALS: BP 158/78; PULSE 107; RESP 20; TEMP 36.7; O2SAT 90; BMI 54.1
[2018-02-28] MEDS: HYDROcodone Bitartrate/Apap 5/325 Tablet PO (21:50)
[2018-02-28] MEDS: Furosemide 40 MG Tablet 80 MG PO (21:51)
--- NOTE | 2018-02-28 22:00 | RAD_ITS ---
STUDY: X-RAY CHEST REASON FOR EXAM: Female, 42 years old. Shortness of breath. TECHNIQUE: PA and lateral views of the chest. COMPARISON: December 13, 2017 FINDINGS: The lungs are clear and expanded. There is no demonstrated pleural abnormality. Normal size heart. Normal mediastinum and evi. Normal visualized pulmonary arteries. Normal visualized aortic arch and descending thoracic aorta. Normal visualized thoracic spine. Normal visualized ribs, clavicles, and shoulders. There is no demonstrated abnormality of the visualized soft tissue structures of the upper abdomen. RAD/Chest PA and Lateral IMPRESSION: No acute cardiopulmonary process. Electronically Signed: Vianey Golden MD at 22:57 EDT Tel , Service support ,
--- NOTE | 2018-02-28 22:50 | ED.DCSUM_ITS ---
- ER Visit Summary Date of Service: 02/28/18 Chief Complaint: Leg swelling History of Present Illness: The patient is a 42 F who states that she has a history of lymphedema. Patient states that tonight legs are more swollen than they have ever been. She states that they are burning and hurt. She states that she try to get some ARI hose but needed a prescription for them. She is on 40 of Lasix twice a day. She denies any known change in salt intake. However she does state that it is very possible that she has ate salty food recently. Patient wears oxygen at home. She has a history of right-sided heart failure as well as obstructive sleep apnea, morbid obesity, diabetes hypertension high cholesterol. Physical Examination: Afebrile vital signs are stable. Had the patient put a pulse ox monitor on her finger and I personally held the hand still to achieve a good waveform and she is 95% on room air. Gen: Well-nourished well-developed Fadumo obese Head: Normocephalic atraumatic Eyes: Perrl EOMI ENT: TMs clear no rhinorrhea moist mucous membranes Neck: Supple no lymphadenopathy no JVD nontender CVS: Regular rate rhythm no murmurs normal S1-S2 Respiratory: No distress clear to auscultation bilaterally chest nontender Abdomen: Soft nontender nondistended normal bowel sounds no masses Back: Nontender Extremity: Bilateral lymphedema 2+ with pitting there is mild bilateral erythema of the legs consistent with venous stasis. This erythema decreases with elevation of the legs. Skin: Normal color no rash Neuro: alert orientated ?3 CN II-XII intact normal strength sensation reflexes gait cerebellar Psych: Normal affect normal mood Test Results: Chest x-ray is clear. Emergency Department Course and Treatment: Patient received 80 of Lasix p.o. Think the patient most likely has a exacerbation of her chronic right sided heart failure and lymphedema. We will treat with 80 of Lasix twice a day. I will write a prescription for ARI hose. We will need to see her doctor later this week. Impression: 1. Acute on chronic lymphedema This note was generated with [employer] dictation software. It may contain incorrect words, spelling, and punctuation that were not noted in review of the chart prior to signing ED Disposition - Plan for ED Patient: Disposition: Home or Assisted Living Chief Complaint: Dizziness Instructions: ED CHF Right Side, ED Lymphedema Prescriptions: Compression Socks, Medium [Futuro Restoring] 1 ea MC DAILY #1 ea Furosemide [Lasix] 80 mg PO BID #10 tab Referrals: Tino Oreilly MD [Primary Care Provider] - 3-5 Days
[2018-02-28 23:22] VITALS: BP 133/74; BP 135/56; BP 143/88; PULSE 102; PULSE 103; PULSE 93; RESP 18; O2SAT 94
[2018-02-28 23:33] VITALS: BP 143/88; PULSE 94; RESP 23; O2SAT 95
--- NOTE | 2018-02-28 23:33 | ED.RN ---
DISCHARGE INSTRUCTIONS GIVEN TO AND REVIEWED WITH PATIENT, PATIENT DENIES QUESTIONS OR CONCERNS AND VOICES UNDERSTANDING OF DISCHARGE INSTRUCTIONS. PT AMBULATES OUT OF ROOM WITHOUT DIFFICULTY.
== END 2018-02-28 23:34 | disposition home or self-care (01) ==
PROVIDERS: Emergency Provider Emergency Medicine; Family Provider Family Medicine; PCP Family Medicine
DX: I89.0 Lymphedema, not elsewhere classified (principal); I11.0 Hypertensive heart disease with heart failure; I50.9 Heart failure, unspecified; E11.9 Type 2 diabetes mellitus without complications; E78.00 Pure hypercholesterolemia, unspecified; G47.33 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 (adult) (pediatric); E66.01 Morbid (severe) obesity due to excess calories; Z72.0 Tobacco use; Z99.81 Dependence on supplemental oxygen; Z79.82 Long term (current) use of aspirin; Z79.4 Long term (current) use of insulin; Z79.891 Long term (current) use of opiate analgesic; Z79.899 Other long term (current) drug therapy
CPT/HCPCS: 71046; 99284

== ENCOUNTER 2018-03-07 21:48 | Emergency (ER) | payer MEDICAID, SELFPAY ==
[2018-03-07 21:48] VITALS: BP 159/128; PULSE 102; RESP 18; TEMP 36.3; O2SAT 95; BMI 56.7
--- NOTE | 2018-03-07 22:26 | ED.DCSUM_ITS ---
- ER Visit Summary Date of Service: 03/07/18 Chief Complaint: Abscess History of Present Illness: The patient is a 42 F progressive abscess left groin over 2 days. No fevers. Chronic chills. History of similar in the past , states required surgery in the right side 4 years ago. Patient is a diabetic. Denies any active drainage. Pain worse with palpation. Physical Examination: General: Alert and oriented ?3, no acute distress HEENT: Normocephalic, atraumatic. Moist mucosa membranes Neck: supple, nontender. Cardiovascular: Regular rate and rhythm, no murmurs Respiratory: Normal breath sounds, symmetric, no distress Abdomen: Soft, nontender, nondistended Extremities: Nontender, no edema, pulses intact ?4 Neuro: no focal neurological deficits. Skin: Left inguinal region noted 2 cm fluctuance, no surrounding erythema. No active drainage. Tender to palpation. Test Results: [] Emergency Department Course and Treatment: I&D performed with copious exudates. Patient given Motrin. Discussed good wound care. No antibiotics currently secondary definitive care being I&D. Patient follow-up PCP for reevaluation, return if any worsening symptoms. All questions were answered. Treatment Plan: [] Disposition: Discharge Impression: 1. Left inguinal abscess status post incision and drainage This note was generated with [employer] dictation software. It may contain incorrect words, spelling, and punctuation that were not noted in review of the chart prior to signing ED Disposition - Plan for ED Patient: Disposition: Home or Assisted Living Chief Complaint: Abscess Diagnosis: Abscess of left groin Instructions: ED Abscess IandD Prescriptions: Ibuprofen 600 mg PO 4X/DAY PRN #20 tablet PRN Reason: Pain Referrals: Tino Oreilly MD [Primary Care Provider] - 3-5 Days
[2018-03-08] MEDS: Ibuprofen 600 MG Tablet PO (00:17)
[2018-03-08 00:18] VITALS: RESP 18
== END 2018-03-08 00:19 | disposition home or self-care (01) ==
PROVIDERS: Emergency Provider Emergency Medicine; Family Provider Family Medicine; PCP Family Medicine
DX: L02.214 Cutaneous abscess of groin (principal); E11.9 Type 2 diabetes mellitus without complications; I10 Essential (primary) hypertension; K21.9 Gastro-esophageal reflux disease without esophagitis; G47.33 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 (adult) (pediatric); E66.9 Obesity, unspecified; Z72.0 Tobacco use; Z79.82 Long term (current) use of aspirin; Z79.4 Long term (current) use of insulin; Z79.899 Other long term (current) drug therapy; Z86.14 Personal history of Methicillin resistant Staphylococcus aureus infection
CPT/HCPCS: 10060; 99283

== ENCOUNTER 2018-06-07 01:42 | Inpatient (IN) | payer MEDICAID, SELFPAY ==
[2018-06-07] VITALS (13 sets, daily range): BP systolic 116–164; BP diastolic 49–74; PULSE 85–114; RESP 16–20; TEMP 36.7–37; O2SAT 93–95; BMI 57.9; BMI 58.9; BMI 59.0
--- NOTE | 2018-06-07 03:00 | CT_ITS ---
STUDY: CT ABDOMEN AND PELVIS WITH CONTRAST REASON FOR EXAM: Female, 42 years old. Draining left groin. RADIATION DOSAGE (If Supplied By Facility): CTDIvol = ( 35.76 ) mGy, DLP = ( 2270.37 ) mGycm TECHNIQUE: Transaxial images were obtained from the dome of the diaphragm to the symphysis pubis without oral contrast. 100 ml of Isovue 300 contrast was administered. Sagittal and coronal images were reconstructed. Individualized dose optimization techniques were used for this CT. COMPARISON: CT of the pelvis dated April 06, 2014. FINDINGS: The visualized lung bases are unremarkable. The visualized portions of the heart are within normal limits. There is hepatomegaly with diffuse hepatic enlargement. Maximum cephalocaudal dimension of the liver is approximately 24 cm. There is non-visualization of the gallbladder, which may be secondary to either contraction or a prior cholecystectomy. Normal spleen. Normal pancreas. There is a left adrenal nodule measuring approximately 2.2 cm. The right adrenal gland has a normal appearance. Normal right kidney. Normal left kidney. Normal visualized stomach. There is no evidence for dilated bowel, ascites or pneumoperitoneum. Small bowel has a grossly normal appearance. Stool is visible throughout the colon with scattered diverticula. The appendix is visualized and appears normal. Normal abdominal aorta. Normal inferior vena cava. Normal retroperitoneum. Normal urinary bladder. Normal visualized uterus. There is abnormal attenuation visible within the left lower quadrant abdominal wall presumably related to acute inflammation and infection. This probably corresponds to the area of drainage identified clinically. This is not clearly an abscess but may represent phlegmon. Normal osseous structures. CT/Abdomen/Pelvis W IV Cont ONLY IMPRESSION: 1. No CT evidence of acute intra-abdominal disease. 2. Superficial right lower quadrant abdominal wall inflammation likely representing phlegmon. 3. Hepatomegaly. Electronically Signed: Jeanne Morales MD at 4:50 EDT , Service support ,
[2018-06-07] MEDS: 0.9% Normal Saline 1,000 ML 1000 ML IV (03:28)
[2018-06-07 03:34] LABS: Absolute Lymphocyte Count 2.65 X10^3/ul (0.83-4.51); Basophil# 0.04 X10^3/uL; Basophil% 0.3 % (0-1); Hematocrit 40.1 % (37-47); Hemoglobin 13.3 g/dl (12.0-15.0); Lymphocyte # 2.65 X10^3/ul (4.0); Mean Corp Hgb Conc 33.2 g/gl (32-36); Mean Corpuscular Volume 93.5 fL (81-99); Mean Platelet Vol. 10.1 fl (6.2-12.0); Monocyte# 0.73 X10^3/uL; Monocyte% 4.9 % (0-10); Neutrophil # 10.96 X10^3/uL (2.7-7.7); Neutrophil % 74.3 % (47-70); POSITIVE COUNT NO; POSITIVE DIFFERENTIAL NO; POSITIVE MORPHOLOGY NO; Platelet Count 249 K/mm3 (150-450); RBC Distribution Width CV 14.6 % (11.6-14.6); RBC Distribution Width SD 49.6 fl (35.1-43.9); Red Blood Count 4.29 M/mm3 (4.2-5.4); White Blood Count 14.8 K/mm3 (4.4-11.0)
[2018-06-07 03:42] LABS: Anion Gap 11 (5-15); BUN 17 mg/dL (7-18); BUN/Creat Ratio 18.6 RATIO (10-20); Chloride 96 mmol/L (98-107); Creatinine, Serum 0.91 mg/dL (0.55-1.02); EST Glomerular Filtration Rate 72 mL/min (>60); Est Glom Filt Rate - Afr Amer 87 mL/min (>60); Estimated Creatinine Clearance 73.95 ml/min; Glucose 278 mg/dL (74-106); Potassium 3.5 mmol/L (3.5-5.1); Sodium Level 138 mmol/L (136-145)
--- NOTE | 2018-06-07 05:44 | ED.VISSUMM ---
- ER Visit Summary Date of Service: 06/07/18 Chief Complaint: Left groin abscess History of Present Illness: The patient is a 42 F presenting with draining abscess to her left groin. She states she first noticed this 3 days ago. She has had an abscess in the past in similar area. She has history of diabetes, hypertension, hypercholesterolemia. She denies fever. Denies other complaints. Physical Examination: Vitals are stable. Patient is afebrile. Alert no acute distress. HEENT exam is unremarkable. Neck is supple. Lungs are clear and equal bilaterally. Heart is regular rate and rhythm. Abdomen is left groin/pannus abscess draining, surrounding erythema Extremities are unremarkable. Skin is warm and dry. No focal neurologic deficit. Remainder of exam is unremarkable. Emergency Department Course and Treatment: CBC shows a white count of 14.8. Chemistries unremarkable other than glucose 278. Blood and wound cultures were sent. CT abdomen pelvis with IV contrast shows left lower quadrant superficial abdominal wall inflammation likely representing phlegmon. She was given clindamycin IV. Discussed with the hospitalist for admission. Disposition: Observation Impression: Abdominal wall cellulitis/abscess This note was generated with [employer] dictation software. It may contain incorrect words, spelling, and punctuation that were not noted in review of the chart prior to signing ED Disposition - Plan for ED Patient: Chief Complaint: Abscess Referrals: Tino Oreilly MD [Primary Care Provider] -
[2018-06-07] MEDS: Clindamycin 600 MG/50 ML BAG 100 MG IV (06:19)
--- NOTE | 2018-06-07 06:42 | RAD_ITS ---
STUDY: X-RAY CHEST REASON FOR EXAM: Female, 42 years old. Shortness of breath. TECHNIQUE: Single AP portable view of the chest. COMPARISON: February 28, 2018. FINDINGS: The lungs are expanded. There is mild prominence of bronchovascular markings. There is right basilar airspace disease and/or atelectasis. There is no demonstrated pleural abnormality. There is mild cardiac enlargement. Normal mediastinum and evi. There is prominence of the pulmonary hilar arteries with peripheral pulmonary vascular congestion. There is atherosclerotic calcification of the aortic arch with tortuosity. Normal visualized thoracic spine. Normal visualized ribs, clavicles, and shoulders. There is no demonstrated abnormality of the visualized soft tissue structures of the upper abdomen. RAD/Chest 1 View (Portable) IMPRESSION: Mild cardiomegaly and pulmonary congestion. Electronically Signed: Jeanne Morales MD at 7:23 EDT , Service support ,
--- NOTE | 2018-06-07 06:44 | HP.PCM_ITS ---
Problem List (1) Cellulitis Status: Ruled-out (2) Respiratory failure with hypoxia Status: Chronic Qualifiers: (3) H/O arthroscopic knee surgery Status: Resolved (4) History of cholecystectomy Status: Resolved (5) Hypertension Status: Chronic Qualifiers: History of Present Illness Date of Admission: 06/07/18 Chief Complaint: Cellulitis The patient is a 42 year old female w/ h/o LOGAN, obesity, DMII, HTN, and chronic hypoxic respiratory failure admitted for left groin abscess. She noted the abscess about a week ago. She had similar abscess in the past. However, this time, the abscess got worse. She noted drainage and increase pain. Pain is dull aching and constant. Pain is severe. Nothing makes pain better or worse. No radiation. No fever or chill. Past Medical History Past Medical History (Chronic Problems): Chronic Problems (Last Reviewed 06/07/18 @ 06:39 by Reynaldo Rehman MD) Respiratory failure with hypoxia (Chronic) Hypertension (Chronic) 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 (Chronic) 23/17 cmH20 Anxiety (Chronic) History of MRSA infection (Chronic) Diabetes mellitus (Chronic) Morbid obesity (Chronic) Hyperlipidemia (Chronic) Tobacco abuse (Chronic) Medical History: Medical History (Last Reviewed 06/07/18 @ 06:39 by Reynaldo Rehman MD) c section (Resolved) Abscess (Acute) L02.91 Hypertension (Chronic) I10 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 (Chronic) G47.33 23/17 cmH20 Anxiety (Chronic) F41.9 History of MRSA infection (Chronic) Z86.14 Diabetes mellitus (Chronic) E11.9 Morbid obesity (Chronic) E66.01 Hyperlipidemia (Chronic) E78.5 Tobacco abuse (Chronic) Z72.0 NSTEMI (non-ST elevated myocardial infarction) (Acute) I21.4 Hyperglycemia due to type 2 diabetes mellitus (Acute) E11.65 Allergies cyclobenzaprine HCl [From Flexeril] Allergy (Verified 06/07/18 01:43) Hives venlafaxine [From Effexor] Adverse Reaction (Severe, Verified 06/07/18 01:43) unknown Home Medications: Ambulatory Orders Medication Instructions Recorded Buspirone HCl [Buspar] 15 mg PO TID PRN 09/29/13 Lansoprazole [Prevacid] 25 mg PO DAILY 09/29/13 Lisinopril [Zestril] 20 mg PO DAILY 09/29/13 Hydrochlorothiazide [Hctz] 25 mg PO DAILY 02/02/17 Aspirin [Aspirin, Baby] 81 mg PO DAILY 03/26/17 Multivits,Ca,Minerals/Iron/FA 1 ea PO DAILY 03/26/17 [Women's Daily Formula Caplet] Casco-3 Fatty Acids [Casco-3] 1,000 mg PO DAILY 03/26/17 Gabapentin [Neurontin] 400 mg PO TID 05/29/17 Albuterol Inhaler [Ventolin Hfa] 1 - 2 puff INHALATION Q4H PRN PRN 09/04/17 #1 inhaler Oxygen, Home [Home Oxygen] 2 - 3 lpm NASAL DAILY #1 unit 09/13/17 B12/Levomefolate Calcium/B-6 1 ea PO DAILY 10/07/17 [Folbic Rf Tablet] Dicyclomine HCl [Bentyl] 20 mg PO DAILY 10/07/17 Insulin Aspart [Novolog Flexpen] 35 units SC TIDCM #0 10/08/17 Compression Socks, Medium [Futuro 1 ea MC DAILY #1 ea 02/28/18 Restoring] Furosemide [Lasix] 80 mg PO BID #10 tab 02/28/18 Ibuprofen 600 mg PO 4X/DAY PRN #20 tablet 03/07/18 Insulin Glargine,Hum.rec.anlog 50 unit SQ BID 06/07/18 [Basaglar Kwikpen U-100] [place] Q7D 06/07/18 Surgical History: Surgical History (Last Reviewed 06/07/18 @ 06:39 by Reynaldo Rehman MD) H/O arthroscopic knee surgery (Resolved) Z98.890 History of cholecystectomy (Resolved) Z98.890, Z90.49 Surgical History: no surgical history 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 Smoking Status: Current every day smoker - *Family History Maternal Family History: Family History (Last Reviewed 12/04/17 @ 08:04 by LAURA ParryC) Father CVA (cerebral vascular accident) Heart disease Diabetes History Items: No pertinent history Review of Systems Constitutional: Denies: Chills, Fever, Weight Change HEENT: Denies: Head Aches, Sinus Congestion, Sinus Drainage Cardiovascular: Denies: Chest Pain, Palpitations Respiratory: Denies: Cough, Shortness of breath at rest, Sputum production Gastrointestinal: Denies: Abdominal Pain, Nausea, Vomiting Genitourinary: Denies: Dysuria Musculoskeletal: Denies: Joint Pain, Joint Tenderness Skin: Reports: Skin Changes, - - Left groin abscess. Denies: Rash, Wounds Neurological: Denies: Numbness, Tingling, Focal weakness Psychiatric: Denies: Anxiety, Depression, Homicidal Ideations, Suicidal Ideations Hematologic/ Lymphatic: Denies: Easy Bruising, Easy Bleeding VTE Information - Inpt Only VTE Present on Admission: No VTE Mechan Device Prophylaxis: SCD's VTE Pharm Prophylaxis ordered?: Yes - Physical Exam General: Alert, Oriented x3, Cooperative HEENT: Atraumatic, PERRLA, EOMI, Normocephalic Neck: Supple, No JVD, Negative Carotid Bruits Lungs: Clear to auscultation, Normal air movement Cardiovascular: Regular rate, No murmurs Abdomen: Bowel Sounds Present, Soft, Non Tender Extremities: No edema, Capillary Refill Less than 3 Seconds Skin: No rashes, No breakdown Musculoskeletal: No Tenderness to Palpation of Joints or Extremities Neurological: Cranial nerves II-XII grossly intact Psych/Mental Status: Normal Affect, Appropriate Vital Signs Temp Pulse Resp BP Pulse Ox 98.3 F 93 18 130/55 H 95 06/07/18 01:44 06/07/18 05:34 06/07/18 05:34 06/07/18 05:34 06/07/18 05:34 Assessment/Plan All Active Problems (Last Reviewed 06/07/18 @ 06:39 by Reynaldo Rehman MD) Hyperglycemia (Acute) Cellulitis (Ruled-out) c section (Resolved) H/O arthroscopic knee surgery (Resolved) History of cholecystectomy (Resolved) Abscess (Acute) NSTEMI (non-ST elevated myocardial infarction) (Acute) Hyperglycemia due to type 2 diabetes mellitus (Acute) 42 year old female w/ h/o LOGAN, obesity, DMII, HTN, and chronic hypoxic respiratory failure admitted for left groin abscess. 1) Left groin abscess: CT disclosed superficial right lower quadrant abdominal wall inflammation likely representing phlegmon. Will start zosyn and vancomycin until cultures. Monitor. 2) DMII: Resume home meds. Sliding scale and accheck. 3) HTN: Resume home meds. 4) Chronic hypoxic respiratory failure: C/w oxygen. 5) Prophylaxis: SCD / heparin.
--- NOTE | 2018-06-07 07:59 | PCM.RX.CS ---
Consult Pharmacy has been consulted to manage selected antiobiotic: Vancomycin Type of Consult: New start Suspected Infection: Skin/Soft tissue Prior Doses of Antibiotics Received/Current Regimen: NO PRIOR DOSES OF VANCOMYCIN GIVEN Labs: Sodium 138 mmol/L (136-145) 06/07/18 03:17 Potassium 3.5 mmol/L (3.5-5.1) 06/07/18 03:17 Chloride 96 mmol/L (98-107) L 06/07/18 03:17 Carbon Dioxide 31.0 mmol/L (21.0-32.0) 06/07/18 03:17 Anion Gap 11 (5-15) 06/07/18 03:17 BUN 17 mg/dL (7-18) 06/07/18 03:17 Creatinine 0.91 mg/dL (0.55-1.02) 06/07/18 03:17 Est GFR (MDRD) Af Amer 87 mL/min (>60) 06/07/18 03:17 Est GFR (MDRD) Non-Af 72 mL/min (>60) 06/07/18 03:17 BUN/Creatinine Ratio 18.6 RATIO (10-20) 06/07/18 03:17 Glucose 278 mg/dL (74-106) H 06/07/18 03:17 Weight used for dosin.7 kg Estimated Creatinine Clearance: 74ML/MIN Goal Trough: 10-15 mcg/mL Pharmacy Plan for Drug Dosing: PLAN/RECOMMENDATIONS 1. Vancomycin 2000mg IV x1 initial dose 06/07 @0900 2. start vancomycin 1250mg iv q12hrs scheduled 06/07 @2100 3. Trough scheduled 06/08 @2030, prior to 4th total dose of vancomycin 4. Pharmacy Service will continue to monitor and adjust dosing as required.
[2018-06-07] MEDS: 0.9% Normal Saline 1,000 ML 100 ML IV ×2 (08:55→20:17)
[2018-06-07] MEDS: Piperacil/Tazobactam 3.375 GM/50 ML ML IV ×3 (08:55→21:56)
[2018-06-07 09:01] LABS: Bedside Glucose 235 mg/dL (70-110)
[2018-06-07] MEDS: Insulin Lispro 100 UNIT/ML INSULN.PEN SC ×4 (09:04→21:56)
[2018-06-07] MEDS: Insulin Lispro 100 UNIT/ML INSULN.PEN 35 UNIT SC ×3 (09:04→17:20)
[2018-06-07] MEDS: Multivitamins,Ther W-Minerals Tablet 1 TABLET PO (09:06)
[2018-06-07] MEDS: hydroCHLOROthiazide 25 MG Tablet PO (09:06)
[2018-06-07] MEDS: Lisinopril 20 MG Tablet PO (09:06)
[2018-06-07] MEDS: Gabapentin 400 MG Capsule PO ×3 (09:06→17:21)
[2018-06-07] MEDS: Aspirin 81 MG TAB.CHEW PO (09:06)
[2018-06-07] MEDS: Furosemide 80 MG Tablet PO ×2 (09:06→21:33)
--- NOTE | 2018-06-07 10:18 | PCM.PN.HOSP ---
Subjective: Patient is a 42-year-old female with a history of type 2 diabetes mellitus, obesity, LOGAN and chronic hypoxic respiratory failure due to LOGAN. She was admitted on the lithograph printer of 06/07/2018 at the left groin abscess which had been going on for about a week. She had similar abscesses in the past but none in the same location. She noticed increased drainage of pus and increased pain and redness and so she decided to come into the ED. She did admit to assisted chills but no fever. She was started on IV vancomycin and Zosyn. Seen and examined this morning. She planes of pain at site of abscess. She denies any fever or chills, any cough chest pain, shortness of breath, abdominal pain, any diarrhea vomiting. Patient was on oxygen and drowsy at the time I saw her. She kept dozing off during my review. She admitted using CPAP at home and claims she is compliant. Vitals/I&O's: Vital Signs Temp Pulse Resp BP Pulse Ox 98.1 F 93 18 124/62 H 94 06/07/18 08:50 06/07/18 08:50 06/07/18 08:50 06/07/18 08:50 06/07/18 08:50 Oxygen Flow Rate (L/min) 3 Oxygen Delivery Method Nasal Cannula Weight: 354 lb 4.525 oz Body Mass Index (BMI) 58.9 General: Alert, Oriented x3, Cooperative, No apparent distress HEENT: Atraumatic, PERRLA, EOMI, Normocephalic Oral: Moist Mucosa Neck: Supple, No JVD, Negative Carotid Bruits Lungs: Clear to auscultation, Normal air movement, No rhonchi, No wheeze, No rales Cardiovascular: Regular rate, Regular Rhythm, Normal S1, Normal S2, No murmurs Abdomen: Bowel Sounds Present, Soft, Non Tender, Non-Distended, No Hepato-splenomegaly Extremities: No clubbing, No cyanosis, No edema, Capillary Refill Less than 3 Seconds, - - ~ 8x10cm abscess in the right groin, which is fluctuant, and draining pus. Skin: - - abscess in left groin, as described in extremities Musculoskeletal: No Tenderness to Palpation of Joints or Extremities Lymphatic: No Cervical, Supraclavicular, or Inguinal Adenopathy Neurological: Cranial nerves II-XII grossly intact Psych/Mental Status: Normal Affect, Appropriate, Alert and oriented to time, place, person, mood and affect Laboratory Results 06/07/18 08:47: POC Glucose 235 H Laboratory Results - last 24 hr 06/07/18 06/07/18 06/07/18 03:17 03:17 08:47 WBC 14.8 H RBC 4.29 Hgb 13.3 Hct 40.1 MCV 93.5 MCH 31.0 MCHC 33.2 RDW 14.6 RDW Differential 49.6 H Plt Count 249 MPV 10.1 Immature Gran % (Auto) 0.500 Neut % (Auto) 74.3 H Lymph % (Auto) 18.0 L [place] % (Auto) 4.9 Eos % (Auto) 2.0 Baso % (Auto) 0.3 Absolute Neuts (auto) 11.0 H Absolute Lymphs (auto) 2.65 Total Counted Not Reportable Sodium 138 Potassium 3.5 Chloride 96 L Carbon Dioxide 31.0 Anion Gap 11 BUN 17 Creatinine 0.91 Estim Creat Clear Calc 73.95 Est GFR (MDRD) Af Amer 87 Est GFR (MDRD) Non-Af 72 BUN/Creatinine Ratio 18.6 Glucose 278 H Calcium 9.0 POC Glucose 235 H Current Medications Acetaminophen (Tylenol) 650 mg PO Q6H PRN PRN PRN Reason: Mild Pain (scale 0-3)/T>100.7 [facility] Last Admin: 06/07/18 09:06 Dose: 81 mg Buspirone HCl (Buspar) 15 mg PO TID PRN PRN Reason: ANXIETY Dextrose (D50w Syringe) 0 gm IV X1 PRN; Protocol PRN Reason: Hypoglycemia Dicyclomine HCl (Bentyl) 20 mg PO DAILY [facility] Furosemide (Lasix) 80 mg PO BID [facility] Last Admin: 06/07/18 09:06 Dose: 80 mg Gabapentin (Neurontin) 400 mg PO TIDCM [facility] Last Admin: 06/07/18 09:06 Dose: 400 mg Glucagon () 1 mg IM .X1 PRN PRN Reason: Hypoglycemia Heparin Sodium (Porcine) (Heparin Na) 5,000 unit SC Q8 [facility] Hydrochlorothiazide (Hctz) 25 mg PO DAILY [facility] Last Admin: 06/07/18 09:06 Dose: 25 mg Sodium Chloride () 1,000 mls @ 100 mls/hr IV .Q10H [facility] Last Admin: 06/07/18 08:55 Dose: 100 mls/hr Piperacillin Sod/Tazobactam Sod (Zosyn) 3.375 gm in 50 mls @ 12.5 mls/hr IV Q8 [facility] Last Admin: 06/07/18 08:55 Dose: 12.5 mls/hr Vancomycin HCl 2,000 mg/ (Sodium Chloride) 540 mls @ 260 mls/hr IV X1 ONE Stop: 06/07/18 11:04 Last Admin: 06/07/18 09:09 Dose: 260 mls/hr Vancomycin IV Pharmacy to Dose (1 ea/ Sodium Chloride) 500 mls @ 250 mls/hr IV PRN PRN PRN Reason: Protocol Vancomycin HCl 1,250 mg/ (Sodium Chloride) 275 mls @ 183.333 mls/hr IV Q12H [facility] Ibuprofen (Motrin) 600 mg PO 4X/DAY PRN PRN Reason: PAIN Insulin Human Lispro (Humalog Kwikpen (Bkc)) 35 unit SC 0800,1200,1700 [facility] Last Admin: 06/07/18 09:04 Dose: 35 units Insulin Human Lispro (Humalog Kwikpen (Bkc)) 0 unit SC TIDAC KIAN PRN Reason: Protocol Last Admin: 06/07/18 09:04 Dose: 2 units Lisinopril (Zestril) 20 mg PO DAILY [facility] Last Admin: 06/07/18 09:06 Dose: 20 mg Magnesium Hydroxide (Milk Of Magnesia) 30 ml PO DAILY PRN PRN PRN Reason: Constipation Multivitamins/Minerals (Multivitamin With Minerals) 1 tablet PO DAILY@0800 [facility] Last Admin: 06/07/18 09:06 Dose: 1 tablet Non-Formulary Medication (Lansoprazole) 25 mg PO DAILY [facility] Sodium Chloride () 5 - 30 ml IV UD PRN PRN Reason: SALINE FLUSH Medical Necessity - Tobacco Use Smoking Status: Current every day smoker Assessment/Plan All Active Problems (Last Reviewed 06/07/18 @ 06:39 by Reynaldo Rehman MD) Hyperglycemia (Acute) Cellulitis (Ruled-out) c section (Resolved) H/O arthroscopic knee surgery (Resolved) History of cholecystectomy (Resolved) Abscess (Acute) NSTEMI (non-ST elevated myocardial infarction) (Acute) Hyperglycemia due to type 2 diabetes mellitus (Acute) 42 year old female admitted with abscess in her left groin 1. Left groin abscess in a diabetic 8x10cm abscess in left groin, draining pus. is afebrile; wbc evelated at 14.8 blood cultures pending; wound cultures showed 3+ white blood cells, 3+ gram positive cocci, 1+ gram positive rods and gram negative rods abdominpelvic CT scan: hepatomegaly,liver ~ 24cm. left adrenal nodule ~ 2.2cm. on IV vancomycin; will continue. abnormal attenuation in left lower quadrant abdominal wall, not clearly visualised as an abscess general surgery consult. 2. Diabetes type 2: poorly controlled. Blood sugar in 200s. will check A1C. Accuchecks ACHS. ISS 3. HTN: on HCTZ and furosemide as well as lisinopril 4. Chronci hypoxic respiratory failure due to LOGAN: on 2L of oxygen at time of review. 5. LOGAN: says she is compliant with her CPAP. To bring CPAP from home, as she doesnt know settings. 6. Anxiety: on buspar. 7l. DVT prophylaxis: heparin Code Visit Inpatient E&M: [id number] Subs Hosp L2
--- NOTE | 2018-06-07 10:23 | CM.UR ---
Attempted to meet with patient for CM customer quality specialist however patient was sleeping. Will attempt later. Anjelica Ruiz RN, CCM.
--- NOTE | 2018-06-07 10:28 | PN_ITS ---
Subjective: Patient is a 42-year-old female with a history of type 2 diabetes mellitus, obesity, LOGAN and chronic hypoxic respiratory failure due to LOGAN. She was admitted on the early childhood worker of 06/07/2018 at the left groin abscess which had been going on for about a week. She had similar abscesses in the past but none in the same location. She noticed increased drainage of pus and increased pain and redness and so she decided to come into the ED. She did admit to assisted chills but no fever. She was started on IV vancomycin and Zosyn. Seen and examined this morning. She planes of pain at site of abscess. She denies any fever or chills, any cough chest pain, shortness of breath, abdominal pain, any diarrhea vomiting. Patient was on oxygen and drowsy at the time I saw her. She kept dozing off during my review. She admitted using CPAP at home and claims she is compliant. Vitals/I&O's: Vital Signs Temp Pulse Resp BP Pulse Ox 98.1 F 93 18 124/62 H 94 06/07/18 08:50 06/07/18 08:50 06/07/18 08:50 06/07/18 08:50 06/07/18 08:50 Oxygen Flow Rate (L/min) 3 Oxygen Delivery Method Nasal Cannula Weight: 354 lb 4.525 oz Body Mass Index (BMI) 58.9 General: Alert, Oriented x3, Cooperative, No apparent distress HEENT: Atraumatic, PERRLA, EOMI, Normocephalic Oral: Moist Mucosa Neck: Supple, No JVD, Negative Carotid Bruits Lungs: Clear to auscultation, Normal air movement, No rhonchi, No wheeze, No rales Cardiovascular: Regular rate, Regular Rhythm, Normal S1, Normal S2, No murmurs Abdomen: Bowel Sounds Present, Soft, Non Tender, Non-Distended, No Hepato- splenomegaly Extremities: No clubbing, No cyanosis, No edema, Capillary Refill Less than 3 Seconds, - - ~ 8x10cm abscess in the right groin, which is fluctuant, and draining pus. Skin: - - abscess in left groin, as described in extremities Musculoskeletal: No Tenderness to Palpation of Joints or Extremities Lymphatic: No Cervical, Supraclavicular, or Inguinal Adenopathy Neurological: Cranial nerves II-XII grossly intact Psych/Mental Status: Normal Affect, Appropriate, Alert and oriented to time, place, person, mood and affect Laboratory Results 06/07/18 08:47: POC Glucose 235 H Laboratory Results - last 24 hr 06/07/18 06/07/18 06/07/18 03:17 03:17 08:47 WBC 14.8 H RBC 4.29 Hgb 13.3 Hct 40.1 MCV 93.5 MCH 31.0 MCHC 33.2 RDW 14.6 RDW Differential 49.6 H Plt Count 249 MPV 10.1 Immature Gran % (Auto) 0.500 Neut % (Auto) 74.3 H Lymph % (Auto) 18.0 L [place] % (Auto) 4.9 Eos % (Auto) 2.0 Baso % (Auto) 0.3 Absolute Neuts (auto) 11.0 H Absolute Lymphs (auto) 2.65 Total Counted Not Reportable Sodium 138 Potassium 3.5 Chloride 96 L Carbon Dioxide 31.0 Anion Gap 11 BUN 17 Creatinine 0.91 Estim Creat Clear Calc 73.95 Est GFR (MDRD) Af Amer 87 Est GFR (MDRD) Non-Af 72 BUN/Creatinine Ratio 18.6 Glucose 278 H Calcium 9.0 POC Glucose 235 H Current Medications Acetaminophen (Tylenol) 650 mg PO Q6H PRN PRN PRN Reason: Mild Pain (scale 0-3)/T>100.7 Aspirin (A[facility]in, Baby) [address] [facility] Last Admin: 06/07/18 09:06 Dose: 81 mg Buspirone HCl (Buspar) 15 mg PO TID PRN PRN Reason: ANXIETY Dextrose (D50w Syringe) 0 gm IV X1 PRN; Protocol PRN Reason: Hypoglycemia Dicyclomine HCl (Bentyl) 20 mg PO DAILY [facility] Furosemide (Lasix) 80 mg PO BID [facility] Last Admin: 06/07/18 09:06 Dose: 80 mg Gabapentin (Neurontin) 400 mg PO TIDCM [facility] Last Admin: 06/07/18 09:06 Dose: 400 mg Glucagon () 1 mg IM .X1 PRN PRN Reason: Hypoglycemia Heparin Sodium (Porcine) (Heparin Na) 5,000 unit SC Q8 [facility] Hydrochlorothiazide (Hctz) 25 mg PO DAILY [facility] Last Admin: 06/07/18 09:06 Dose: 25 mg Sodium Chloride () 1,000 mls @ 100 mls/hr IV .Q10H [facility] Last Admin: 06/07/18 08:55 Dose: 100 mls/hr Piperacillin Sod/Tazobactam Sod (Zosyn) 3.375 gm in 50 mls @ 12.5 mls/hr IV Q8 [facility] Last Admin: 06/07/18 08:55 Dose: 12.5 mls/hr Vancomycin HCl 2,000 mg/ (Sodium Chloride) 540 mls @ 260 mls/hr IV X1 ONE Stop: 06/07/18 11:04 Last Admin: 06/07/18 09:09 Dose: 260 mls/hr Vancomycin IV Pharmacy to Dose (1 ea/ Sodium Chloride) 500 mls @ 250 mls/hr IV PRN PRN PRN Reason: Protocol Vancomycin HCl 1,250 mg/ (Sodium Chloride) 275 mls @ 183.333 mls/hr IV Q12H [facility] Ibuprofen (Motrin) 600 mg PO 4X/DAY PRN PRN Reason: PAIN Insulin Human Lispro (Humalog Kwikpen (Bkc)) 35 unit SC 0800,1200,1700 [facility] Last Admin: 06/07/18 09:04 Dose: 35 units Insulin Human Lispro (Humalog Kwikpen (Bkc)) 0 unit SC TIDAC KIAN PRN Reason: Protocol Last Admin: 06/07/18 09:04 Dose: 2 units Lisinopril (Zestril) 20 mg PO DAILY [facility] Last Admin: 06/07/18 09:06 Dose: 20 mg Magnesium Hydroxide (Milk Of Magnesia) 30 ml PO DAILY PRN PRN PRN Reason: Constipation Multivitamins/Minerals (Multivitamin With Minerals) 1 tablet PO DAILY@0800 [facility] Last Admin: 06/07/18 09:06 Dose: 1 tablet Non-Formulary Medication (Lansoprazole) 25 mg PO DAILY [facility] Sodium Chloride () 5 - 30 ml IV UD PRN PRN Reason: SALINE FLUSH Medical Necessity - Tobacco Use Smoking Status: Current every day smoker Assessment/Plan All Active Problems (Last Reviewed 06/07/18 @ 06:39 by Reynaldo Rehman MD) Hyperglycemia (Acute) Cellulitis (Ruled-out) c section (Resolved) H/O arthroscopic knee surgery (Resolved) History of cholecystectomy (Resolved) Abscess (Acute) NSTEMI (non-ST elevated myocardial infarction) (Acute) Hyperglycemia due to type 2 diabetes mellitus (Acute) 42 year old female admitted with abscess in her left groin 1. Left groin abscess in a diabetic * 8x10cm abscess in left groin, draining pus. * is afebrile; wbc evelated at 14.8 * blood cultures pending; wound cultures showed 3+ white blood cells, 3+ gram positive cocci, 1+ gram positive rods and gram negative rods * abdominpelvic CT scan: hepatomegaly,liver ~ 24cm. left adrenal nodule ~ 2.2cm. * on IV vancomycin; will continue. abnormal attenuation in left lower quadrant abdominal wall, not clearly visualised as an abscess * general surgery consult. 2. Diabetes type 2: poorly controlled. Blood sugar in 200s. will check A1C. Accuchecks ACHS. ISS 3. HTN: on HCTZ and furosemide as well as lisinopril 4. Chronci hypoxic respiratory failure due to LOGAN: on 2L of oxygen at time of review. 5. LOGAN: says she is compliant with her CPAP. To bring CPAP from home, as she doesnt know settings. 6. Anxiety: on buspar. 7l. DVT prophylaxis: heparin Code Visit Inpatient E&M: 74809 Subs Hosp L2
[2018-06-07 11:50] LABS: Bedside Glucose 215 mg/dL (70-110)
[2018-06-07 12:38] LABS: Hemoglobin A1c 10.1 % (4.2-6.3)
[2018-06-07] MEDS: Heparin Injection (Vial) 5,000 UNIT/ML VIAL 5000 UNIT SC ×2 (14:46→21:56)
--- NOTE | 2018-06-07 14:56 | CM.UR ---
Met face to face with patient. See attached library monitor. Patient wasn't very talkative and answered questions with minimal answers. Denies any anticipated needs. Anjelica Ruiz, [place], [facility].
[2018-06-07] MEDS: Ibuprofen 600 MG Tablet PO (17:20)
[2018-06-07 17:31] LABS: Bedside Glucose 320 mg/dL (70-110)
[2018-06-07] MEDS: Acetaminophen 325 MG Tablet 650 MG PO (18:48)
[2018-06-07] MEDS: oxyCODONE 5 MG Tablet PO (21:33)
[2018-06-07 21:40] LABS: Bedside Glucose 473 mg/dL (70-110)
[2018-06-07 22:02] LABS: Glucose 471 mg/dL (74-106)
[2018-06-07 22:56] LABS: Bedside Glucose 481 mg/dL (70-110)
[2018-06-08] VITALS (10 sets, daily range): BP systolic 102–130; BP diastolic 45–84; PULSE 76–90; RESP 16–20; TEMP 36.1–36.7; O2SAT 93–94
[2018-06-08] MEDS: Ibuprofen 600 MG Tablet PO (00:15)
[2018-06-08] MEDS: Insulin Lispro 100 UNIT/ML INSULN.PEN 15 UNIT SC (00:16)
[2018-06-08] MEDS: oxyCODONE 5 MG Tablet PO ×3 (03:52→20:31)
[2018-06-08 04:01] LABS: Bedside Glucose 354 mg/dL (70-110)
[2018-06-08 06:30] LABS: Anion Gap 10 (5-15); BUN 15 mg/dL (7-18); BUN/Creat Ratio 16.1 RATIO (10-20); Calcium,Total 8.1 mg/dL (8.5-10.1); Chloride 98 mmol/L (98-107); Creatinine, Serum 0.93 mg/dL (0.55-1.02); EST Glomerular Filtration Rate 70 mL/min (>60); Est Glom Filt Rate - Afr Amer 85 mL/min (>60); Estimated Creatinine Clearance 72.36 ml/min; Glucose 345 mg/dL (74-106); Potassium 3.7 mmol/L (3.5-5.1); Sodium Level 137 mmol/L (136-145)
[2018-06-08 06:36] LABS: Absolute Lymphocyte Count 2.69 X10^3/ul (0.83-4.51); Absolute Neutrophil Count 6.7 X10^3/uL (2.0-7.7); Basophil# 0.07 X10^3/uL; Basophil% 0.7 % (0-1); Eosinophil# 0.28 X10^3/uL; Eosinophils% 2.8 % (0-5); Hematocrit 37.5 % (37-47); Hemoglobin 11.7 g/dl (12.0-15.0); Lymphocyte # 2.69 X10^3/ul (4.0); Lymphocyte % 26.4 % (19-41); Mean Corp Hgb Conc 31.2 g/gl (32-36); Mean Corpuscular Hgb 30.1 pg (27.0-32.0); Mean Corpuscular Volume 96.4 fL (81-99); Mean Platelet Vol. 10.3 fl (6.2-12.0); Monocyte# 0.37 X10^3/uL; Monocyte% 3.6 % (0-10); Neutrophil % 65.8 % (47-70); Platelet Count 249 K/mm3 (150-450); RBC Distribution Width CV 14.9 % (11.6-14.6); RBC Distribution Width SD 51.9 fl (35.1-43.9); Red Blood Count 3.89 M/mm3 (4.2-5.4); White Blood Count 10.2 K/mm3 (4.4-11.0)
[2018-06-08] MEDS: Heparin Injection (Vial) 5,000 UNIT/ML VIAL 5000 UNIT SC ×3 (06:59→22:46)
[2018-06-08] MEDS: 0.9% Normal Saline 1,000 ML 100 ML IV ×2 (06:59→18:28)
[2018-06-08] MEDS: Piperacil/Tazobactam 3.375 GM/50 ML ML IV ×3 (07:00→22:50)
[2018-06-08 07:01] LABS: POSITIVE COUNT NO; POSITIVE DIFFERENTIAL NO; POSITIVE MORPHOLOGY NO
[2018-06-08] MEDS: Gabapentin 400 MG Capsule PO ×3 (07:55→16:48)
[2018-06-08] MEDS: Aspirin 81 MG TAB.CHEW PO (07:55)
[2018-06-08] MEDS: Multivitamins,Ther W-Minerals Tablet 1 TABLET PO (07:55)
[2018-06-08] MEDS: Insulin Lispro 100 UNIT/ML INSULN.PEN 35 UNIT SC ×3 (07:55→16:48)
[2018-06-08] MEDS: Insulin Lispro 100 UNIT/ML INSULN.PEN SC ×4 (07:56→22:44)
[2018-06-08] MEDS: Pantoprazole Sodium 40 MG Tablet PO (08:04)
[2018-06-08] MEDS: Dicyclomine 10 MG Capsule 20 MG PO (08:04)
[2018-06-08 08:15] LABS: Bedside Glucose 406 mg/dL (70-110)
--- NOTE | 2018-06-08 08:17 | NURSING ---
wound photo: left groin
[2018-06-08] MEDS: Acetaminophen 325 MG Tablet 650 MG PO ×2 (10:01→20:31)
[2018-06-08 11:40] LABS: Bedside Glucose 398 mg/dL (70-110)
--- NOTE | 2018-06-08 12:21 | PCM.PN.HOSP ---
Subjective: Seen and examined today. She has no complaints. Pain in left groin is much better and drainage from wound has resolved. She denies any fever or chills, any cough or chest pain, shortness of breath, any abdominal pain, any diarrhea or vomiting. Review of systems otherwise negative. Vitals/I&O's: Vital Signs Temp Pulse Resp BP Pulse Ox 97.0 F L 90 18 102/45 L 94 06/08/18 07:46 06/08/18 12:03 06/08/18 07:46 06/08/18 07:46 06/08/18 07:46 Oxygen Flow Rate (L/min) 2 Oxygen Delivery Method Room Air Weight: 354 lb 4.525 oz Body Mass Index (BMI) 58.9 Intake and Output for Last 24 Hours 06/06/18 06/07/18 06/08/18 23:59 23:59 23:59 Intake Total 1625 / 1625 6530 / 6530 Balance 1625 / 1625 6530 / 6530 General: Alert, Oriented x3, Cooperative, No apparent distress HEENT: Atraumatic, PERRLA, EOMI, Normocephalic Oral: Moist Mucosa Neck: Supple, No JVD, Negative Carotid Bruits Lungs: Clear to auscultation, Normal air movement, No rhonchi, No wheeze, No rales Cardiovascular: Regular rate, Regular Rhythm, Normal S1, Normal S2, No murmurs Abdomen: Bowel Sounds Present, Soft, Non Tender, Non-Distended, No Hepato-splenomegaly, Obese, - Extremities: No clubbing, No cyanosis, No edema, Capillary Refill Less than 3 Seconds Skin: - - Left groin abscess still erythematous and tender to touch. Drainage has stopped. Musculoskeletal: No Tenderness to Palpation of Joints or Extremities Lymphatic: No Cervical, Supraclavicular, or Inguinal Adenopathy Neurological: Cranial nerves II-XII grossly intact Psych/Mental Status: Normal Affect, Appropriate, Alert and oriented to time, place, person, mood and affect Microbiology Past 72 Hours 06/07/18 20:20 Wound Abcess - Groin Gram Stain - Final Laboratory Results 06/07/18 17:14: POC Glucose 320 H 06/07/18 20:20: Urine Amphetamine Pending, U Amphetamines Confirm Pending, Urine Cocaine Confirm Pending, U Cocaine Metab Screen Pending, U Benzoylecgonine GC/MS Pending, Urine Ethyl Alcohol Pending 06/07/18 21:30: POC Glucose 473 H* 06/07/18 21:40: Glucose 471 H* 06/07/18 22:53: POC Glucose 481 H* 06/08/18 03:48: POC Glucose 354 H 06/08/18 05:40: WBC 10.2, RBC 3.89 L, Hgb 11.7 L, Hct 37.5, MCV 96.4, MCH 30.1, MCHC 31.2 L, RDW 14.9 H, RDW Differential 51.9 H, Plt Count 249, MPV 10.3, Immature Gran % (Auto) 0.700, Neut % (Auto) 65.8, Lymph % (Auto) 26.4, [place] % (Auto) 3.6, Eos % (Auto) 2.8, Baso % (Auto) 0.7, Absolute Neuts (auto) 6.7, Absolute Lymphs (auto) 2.69, Total Counted Not Reportable 06/08/18 05:40: Sodium 137, Potassium 3.7, Chloride 98, Carbon Dioxide 29.0, Anion Gap 10, BUN 15, Creatinine 0.93, Estim Creat Clear Calc 72.36, Est GFR (MDRD) Af Amer 85, Est GFR (MDRD) Non-Af 70, BUN/Creatinine Ratio 16.1, Glucose 345 H, Calcium 8.1 L 06/08/18 07:49: POC Glucose 406 H 06/08/18 11:27: POC Glucose 398 H Current Medications Acetaminophen (Tylenol) 650 mg PO Q6H PRN PRN PRN Reason: Mild Pain (scale 0-3)/T>100.7 Last Admin: 06/08/18 10:01 Dose: 650 mg [facility]ir[facility], [facility]) [facility] Last Admin: 06/08/18 07:55 Dose: 81 mg Buspirone HCl (Buspar) 5 mg PO BID [facility] Last Admin: 06/08/18 07:59 Dose: Not Given Dextrose (D50w Syringe) 0 gm IV X1 PRN; Protocol PRN Reason: Hypoglycemia Dicyclomine HCl (Bentyl) 20 mg PO DAILY [facility] Last Admin: 06/08/18 08:04 Dose: 20 mg Furosemide (Lasix) 80 mg PO BID [facility] Last Admin: 06/08/18 09:12 Dose: Not Given Gabapentin (Neurontin) 400 mg PO TIDCM [facility] Last Admin: 06/08/18 11:33 Dose: 400 mg Glucagon () 1 mg IM .X1 PRN PRN Reason: Hypoglycemia Heparin Sodium (Porcine) (Heparin Na) 5,000 unit SC Q8 [facility] Last Admin: 06/08/18 06:59 Dose: 5,000 units Hydrochlorothiazide (Hctz) 25 mg PO DAILY [facility] Last Admin: 06/08/18 09:12 Dose: Not Given Sodium Chloride () 1,000 mls @ 100 mls/hr IV .Q10H [facility] Last Admin: 06/08/18 06:59 Dose: 100 mls/hr Piperacillin Sod/Tazobactam Sod (Zosyn) 3.375 gm in 50 mls @ 12.5 mls/hr IV Q8 [facility] Last Admin: 06/08/18 07:00 Dose: 12.5 mls/hr Vancomycin IV Pharmacy to Dose (1 ea/ Sodium Chloride) 500 mls @ 250 mls/hr IV PRN PRN PRN Reason: Protocol Vancomycin HCl 1,250 mg/ (Sodium Chloride) 275 mls @ 183.333 mls/hr IV Q12H [facility] Last Admin: 06/08/18 09:17 Dose: 183.333 mls/hr Ibuprofen (Motrin) 600 mg PO 4X/DAY PRN PRN Reason: PAIN Last Admin: 06/08/18 00:15 Dose: 600 mg Insulin Glargine (Lantus (Bkc)) 55 units SC BID [facility] Last Admin: 06/08/18 09:12 Dose: Not Given Insulin Human Lispro (Humalog Kwikpen (Bkc)) 35 unit SC 0800,1200,1700 [facility] Last Admin: 06/08/18 11:30 Dose: 35 units Insulin Human Lispro (Humalog Kwikpen (Bkc)) 0 unit SC ACHS [facility] PRN Reason: Protocol Last Admin: 06/08/18 11:31 Dose: 14 u Lisinopril (Zestril) 20 mg PO DAILY [facility] Last Admin: 06/08/18 09:12 Dose: Not Given Magnesium Hydroxide (Milk Of Magnesia) 30 ml PO DAILY PRN PRN PRN Reason: Constipation Multivitamins/Minerals (Multivitamin With Minerals) 1 tablet PO DAILY@0800 [facility] Last Admin: 06/08/18 07:55 Dose: 1 tablet Oxycodone HCl (Oxyir) 5 mg PO Q6H PRN PRN PRN Reason: SEVERE PAIN (6-10/10) Last Admin: 06/08/18 10:00 Dose: 5 mg Pantoprazole Sodium (Protonix) 40 mg PO DAILY [facility] Last Admin: 06/08/18 08:04 Dose: 40 mg Sodium Chloride () 5 - 30 ml IV UD PRN PRN Reason: SALINE FLUSH Medical Necessity - Tobacco Use Smoking Status: Current every day smoker Assessment/Plan All Active Problems (Last Reviewed 06/07/18 @ 06:39 by Reynaldo Rehman MD) Hyperglycemia (Acute) Cellulitis (Ruled-out) c section (Resolved) H/O arthroscopic knee surgery (Resolved) History of cholecystectomy (Resolved) Abscess (Acute) NSTEMI (non-ST elevated myocardial infarction) (Acute) Hyperglycemia due to type 2 diabetes mellitus (Acute) 42 year old female admitted with abscess in her left groin 1. Left groin abscess in a diabetic Plus drainage is much better. vacuum drier tender to touch and erythematous. Cell count trended down to 10.2 today. IV vancomycin. Plastic surgery consulted. To have I&D by Dr. Garnica tomorrow. wound cultured Beta streptococcus and gram positive organism, further studies to follow; will maintain IV vancomycin for now Keep n.p.o. past midnight. 2. Diabetes type 2: Very poorly controlled. Blood sugars are up to 471 overnight was 345 this morning. A1c was 10.1 indicating poor control. On Lantus 50 units twice daily. Will increase to 55 units twice daily. Accu-Cheks before meals at bedtime. Insulin sliding scale. 3. HTN: on HCTZ and furosemide as well as lisinopril. BP is low normal this morning for BP meds were held. We will continue monitoring. 4. Chronic hypoxic respiratory failure due to LOGAN on 2L of oxygen 5. LOGAN says she is compliant with her CPAP. For relatives to bring CPAP from home. 6. Anxiety: on buspar. 7. DVT prophylaxis: heparin Code Visit Inpatient E&M: 42734 Subs Hosp L3
--- NOTE | 2018-06-08 12:26 | PN_ITS ---
Subjective: Seen and examined today. She has no complaints. Pain in left groin is much better and drainage from wound has resolved. She denies any fever or chills, any cough or chest pain, shortness of breath, any abdominal pain, any diarrhea or vomiting. Review of systems otherwise negative. Vitals/I&O's: Vital Signs Temp Pulse Resp BP Pulse Ox 97.0 F L 90 18 102/45 L 94 06/08/18 07:46 06/08/18 12:03 06/08/18 07:46 06/08/18 07:46 06/08/18 07:46 Oxygen Flow Rate (L/min) 2 Oxygen Delivery Method Room Air Weight: 354 lb 4.525 oz Body Mass Index (BMI) 58.9 Intake and Output for Last 24 Hours 06/06/18 06/07/18 06/08/18 23:59 23:59 23:59 Intake Total 1625 / 1625 6530 / 6530 Balance 1625 / 1625 6530 / 6530 General: Alert, Oriented x3, Cooperative, No apparent distress HEENT: Atraumatic, PERRLA, EOMI, Normocephalic Oral: Moist Mucosa Neck: Supple, No JVD, Negative Carotid Bruits Lungs: Clear to auscultation, Normal air movement, No rhonchi, No wheeze, No rales Cardiovascular: Regular rate, Regular Rhythm, Normal S1, Normal S2, No murmurs Abdomen: Bowel Sounds Present, Soft, Non Tender, Non-Distended, No Hepato- splenomegaly, Obese, - Extremities: No clubbing, No cyanosis, No edema, Capillary Refill Less than 3 Seconds Skin: - - Left groin abscess still erythematous and tender to touch. Drainage has stopped. Musculoskeletal: No Tenderness to Palpation of Joints or Extremities Lymphatic: No Cervical, Supraclavicular, or Inguinal Adenopathy Neurological: Cranial nerves II-XII grossly intact Psych/Mental Status: Normal Affect, Appropriate, Alert and oriented to time, place, person, mood and affect Microbiology Past 72 Hours 06/07/18 20:20 Wound Abcess - Groin Gram Stain - Final Laboratory Results 06/07/18 17:14: POC Glucose 320 H 06/07/18 20:20: Urine Amphetamine Pending, U Amphetamines Confirm Pending, Urine Cocaine Confirm Pending, U Cocaine Metab Screen Pending, U Benzoylecgonine GC/MS Pending, Urine Ethyl Alcohol Pending 06/07/18 21:30: POC Glucose 473 H* 06/07/18 21:40: Glucose 471 H* 06/07/18 22:53: POC Glucose 481 H* 06/08/18 03:48: POC Glucose 354 H 06/08/18 05:40: WBC 10.2, RBC 3.89 L, Hgb 11.7 L, Hct 37.5, MCV 96.4, MCH 30.1, MCHC 31.2 L, RDW 14.9 H, RDW Differential 51.9 H, Plt Count 249, MPV 10.3, Immature Gran % (Auto) 0.700, Neut % (Auto) 65.8, Lymph % (Auto) 26.4, [place] % ( Auto) 3.6, Eos % (Auto) 2.8, Baso % (Auto) 0.7, Absolute Neuts (auto) 6.7, Absolute Lymphs (auto) 2.69, Total Counted Not Reportable 06/08/18 05:40: Sodium 137, Potassium 3.7, Chloride 98, Carbon Dioxide 29.0, Anion Gap 10, BUN 15, Creatinine 0.93, Estim Creat Clear Calc 72.36, Est GFR ( MDRD) Af Amer 85, Est GFR (MDRD) Non-Af 70, BUN/Creatinine Ratio 16.1, Glucose 345 H, Calcium 8.1 L 06/08/18 07:49: POC Glucose 406 H 06/08/18 11:27: POC Glucose 398 H Current Medications Acetaminophen (Tylenol) 650 mg PO Q6H PRN PRN PRN Reason: Mild Pain (scale 0-3)/T>100.7 Last Admin: 06/08/18 10:01 Dose: 650 mg [facility]irin ([facility], Baby) [facility] Last Admin: 06/08/18 07:55 Dose: 81 mg Buspirone HCl (Buspar) 5 mg PO BID [facility] Last Admin: 06/08/18 07:59 Dose: Not Given Dextrose (D50w Syringe) 0 gm IV X1 PRN; Protocol PRN Reason: Hypoglycemia Dicyclomine HCl (Bentyl) 20 mg PO DAILY [facility] Last Admin: 06/08/18 08:04 Dose: 20 mg Furosemide (Lasix) 80 mg PO BID [facility] Last Admin: 06/08/18 09:12 Dose: Not Given Gabapentin (Neurontin) 400 mg PO TIDCM [facility] Last Admin: 06/08/18 11:33 Dose: 400 mg Glucagon () 1 mg IM .X1 PRN PRN Reason: Hypoglycemia Heparin Sodium (Porcine) (Heparin Na) 5,000 unit SC Q8 [facility] Last Admin: 06/08/18 06:59 Dose: 5,000 units Hydrochlorothiazide (Hctz) 25 mg PO DAILY [facility] Last Admin: 06/08/18 09:12 Dose: Not Given Sodium Chloride () 1,000 mls @ 100 mls/hr IV .Q10H [facility] Last Admin: 06/08/18 06:59 Dose: 100 mls/hr Piperacillin Sod/Tazobactam Sod (Zosyn) 3.375 gm in 50 mls @ 12.5 mls/hr IV Q8 [facility] Last Admin: 06/08/18 07:00 Dose: 12.5 mls/hr Vancomycin IV Pharmacy to Dose (1 ea/ Sodium Chloride) 500 mls @ 250 mls/hr IV PRN PRN PRN Reason: Protocol Vancomycin HCl 1,250 mg/ (Sodium Chloride) 275 mls @ 183.333 mls/hr IV Q12H [facility] Last Admin: 06/08/18 09:17 Dose: 183.333 mls/hr Ibuprofen (Motrin) 600 mg PO 4X/DAY PRN PRN Reason: PAIN Last Admin: 06/08/18 00:15 Dose: 600 mg Insulin Glargine (Lantus (Bkc)) 55 units SC BID [facility] Last Admin: 06/08/18 09:12 Dose: Not Given Insulin Human Lispro (Humalog Kwikpen (Bkc)) 35 unit SC 0800,1200,1700 [facility] Last Admin: 06/08/18 11:30 Dose: 35 units Insulin Human Lispro (Humalog Kwikpen (Bkc)) 0 unit SC ACHS [facility] PRN Reason: Protocol Last Admin: 06/08/18 11:31 Dose: 14 u Lisinopril (Zestril) 20 mg PO DAILY [facility] Last Admin: 06/08/18 09:12 Dose: Not Given Magnesium Hydroxide (Milk Of Magnesia) 30 ml PO DAILY PRN PRN PRN Reason: Constipation Multivitamins/Minerals (Multivitamin With Minerals) 1 tablet PO DAILY@0800 [facility] Last Admin: 06/08/18 07:55 Dose: 1 tablet Oxycodone HCl (Oxyir) 5 mg PO Q6H PRN PRN PRN Reason: SEVERE PAIN (6-10/10) Last Admin: 06/08/18 10:00 Dose: 5 mg Pantoprazole Sodium (Protonix) 40 mg PO DAILY [facility] Last Admin: 06/08/18 08:04 Dose: 40 mg Sodium Chloride () 5 - 30 ml IV UD PRN PRN Reason: SALINE FLUSH Medical Necessity - Tobacco Use Smoking Status: Current every day smoker Assessment/Plan All Active Problems (Last Reviewed 06/07/18 @ 06:39 by Reynaldo Rehman MD) Hyperglycemia (Acute) Cellulitis (Ruled-out) c section (Resolved) H/O arthroscopic knee surgery (Resolved) History of cholecystectomy (Resolved) Abscess (Acute) NSTEMI (non-ST elevated myocardial infarction) (Acute) Hyperglycemia due to type 2 diabetes mellitus (Acute) 42 year old female admitted with abscess in her left groin 1. Left groin abscess in a diabetic * Plus drainage is much better. tea bag machine tender to touch and erythematous. * Cell count trended down to 10.2 today. * IV vancomycin. Plastic surgery consulted. To have I&D by Dr. Garinca tomorrow. * wound cultured Beta streptococcus and gram positive organism, further studies to follow; will maintain IV vancomycin for now * Keep n.p.o. past midnight. 2. Diabetes type 2: * Very poorly controlled. Blood sugars are up to 471 overnight was 345 this morning. A1c was 10.1 indicating poor control. * On Lantus 50 units twice daily. Will increase to 55 units twice daily. Accu- Cheks before meals at bedtime. Insulin sliding scale. 3. HTN: on HCTZ and furosemide as well as lisinopril. BP is low normal this morning for BP meds were held. We will continue monitoring. 4. Chronic hypoxic respiratory failure due to LOGAN * on 2L of oxygen 5. LOGAN * says she is compliant with her CPAP. For relatives to bring CPAP from home. 6. Anxiety: on buspar. 7. DVT prophylaxis: heparin Code Visit Inpatient E&M: 40424 [facility] H[facility] L[facility]
--- NOTE | 2018-06-08 15:58 | PCM.CONS.GEN ---
Reason for Consult Date of Consultation: 06/08/18 Reason for Consultation: Diabetic abscess left inguinal and vulval area. REFERRING PHYSICIAN: Dr. Neville. DIGITAL ACCOUNT EXECUTIVE: Dr. Garnica. History of Present Illness: The patient is a 42 year old female with a history of diabetes mellitus was recently admitted with a left groin infection. It has been intermittent draining. She had been developing increasing redness, pain, and swelling. She was started on IV antibiotics with Vancomycin and Zosyn. Since starting the IV antibiotics the pressure pain has improved a little. She denied any fever. She states she had a left groin infection drained about a month ago, she thinks, at the [facility] office on [facility]. She had a right groin infection drained a couple of years ago. Her WBC has improved from 14.8 to 10.2 after being admitted. Her HgbA1c is high at 10.1. She had a CT Abdomen and Pelvis on 06/07/18 which showed an abnormal attenuation visible within the left lower quadrant abdominal wall presumably related to acute inflammation and infection. This probably corresponds to the area of drainage identified clinically. This is not clearly an abscess but may represent phlegmon. Normal osseous structures. No CT evidence of acute intra-abdominal disease. I was asked to evaluate this patient for surgical options for treatment. Past Medical History Past Medical History (Chronic Problems): Chronic Problems (Last Reviewed 06/07/18 @ 06:39 by Reynaldo Rehman MD) Respiratory failure with hypoxia (Chronic) Hypertension (Chronic) 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 (Chronic) 23/17 cmH20 Anxiety (Chronic) History of MRSA infection (Chronic) Diabetes mellitus (Chronic) Morbid obesity (Chronic) Hyperlipidemia (Chronic) Tobacco abuse (Chronic) Medical History: Medical History (Last Reviewed 06/07/18 @ 06:39 by Reynaldo Rehman MD) c section (Resolved) Abscess (Acute) L02.91 Hypertension (Chronic) I10 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 (Chronic) G47.33 23/17 cmH20 Anxiety (Chronic) F41.9 History of MRSA infection (Chronic) Z86.14 Diabetes mellitus (Chronic) E11.9 Morbid obesity (Chronic) E66.01 Hyperlipidemia (Chronic) E78.5 Tobacco abuse (Chronic) Z72.0 NSTEMI (non-ST elevated myocardial infarction) (Acute) I21.4 Hyperglycemia due to type 2 diabetes mellitus (Acute) E11.65 Allergies cyclobenzaprine HCl [From Flexeril] Allergy (Verified 06/07/18 01:43) Hives venlafaxine [From Effexor] Adverse Reaction (Severe, Verified 06/07/18 01:43) unknown Current Medications Acetaminophen (Tylenol) 650 mg PO Q6H PRN Aspirin (Aspirin, Baby) 81 mg PO DAILYCM KIAN Buspirone HCl (Buspar) 5 mg PO BID KIAN Dicyclomine HCl (Bentyl) 20 mg PO DAILY KIAN Furosemide (Lasix) 80 mg PO BID KIAN Gabapentin (Neurontin) 400 mg PO TIDCM KIAN Glucagon () 1 mg IM .X1 PRN Heparin Sodium (Porcine) (Heparin Na) 5,000 unit SC Q8 KIAN Hydrochlorothiazide (Hctz) 25 mg PO DAILY KIAN Piperacillin Sod/Tazobactam Sod (Zosyn) 3.375 gm in 50 mls @ 12.5 mls/hr IV Q8 KIAN Vancomycin IV Pharmacy to Dose (1 ea/ Sodium Chloride) 500 mls @ 250 mls/hr IV PRN Vancomycin HCl 1,250 mg/ (Sodium Chloride) 275 mls @ 183.333 mls/hr IV Q12H KIAN Ibuprofen (Motrin) 600 mg PO 4X/DAY PRN Insulin Glargine (Lantus (Bkc)) 55 units SC BID KIAN Insulin Human Lispro (Humalog Kwikpen (Bkc)) 35 unit SC 0800,1200,1700 KIAN Insulin Human Lispro (Humalog Kwikpen (Bkc)) 0 unit SC ACHS KIAN Lisinopril (Zestril) 20 mg PO DAILY KIAN Magnesium Hydroxide (Milk Of Magnesia) 30 ml PO DAILY PRN Multivitamins/Minerals (Multivitamin With Minerals) 1 tablet PO DAILY@0800 KIAN Oxycodone HCl (Oxyir) 5 mg PO Q6H PRN Pantoprazole Sodium (Protonix) 40 mg PO DAILY [facility] Home Medications: Ambulatory Orders Medication Instructions Recorded Buspirone HCl [Buspar] 15 mg PO TID PRN 09/29/13 Lansoprazole [Prevacid] 25 mg PO DAILY 09/29/13 Lisinopril [Zestril] 20 mg PO DAILY 09/29/13 Hydrochlorothiazide [Hctz] 25 mg PO DAILY 02/02/17 Aspirin [Aspirin, Baby] 81 mg PO DAILY 03/26/17 Multivits,Ca,Minerals/Iron/FA 1 ea PO DAILY 03/26/17 [Women's Daily Formula Caplet] [place]-3 Fatty Acids [[place]-3] 1,000 mg PO DAILY 03/26/17 Gabapentin [Neurontin] 400 mg PO TID 05/29/17 Oxygen, Home [Home Oxygen] 2 - 3 lpm NASAL DAILY #1 unit 09/13/17 B12/Levomefolate Calcium/B-6 1 ea PO DAILY 10/07/17 [Folbic Rf Tablet] Dicyclomine HCl [Bentyl] 20 mg PO DAILY 10/07/17 Insulin Aspart [Novolog Flexpen] 35 units SC TIDCM #0 10/08/17 Compression Socks, Medium [Futuro 1 ea MC DAILY #1 ea 02/28/18 Restoring] Furosemide [Lasix] 80 mg PO BID #10 tab 02/28/18 Ibuprofen 800 mg PO 4X/DAY PRN PRN 06/07/18 Dulaglutide [Trulicity] 0.5 ml SQ QWEEK MDD 0.5ml 06/08/18 Cefadroxil [Duracef] 1,000 mg PO BID 14 Days #56 cap 06/10/18 Insulin Glargine [Lantus SoloStar 55 units SC BID #5 pen 06/10/18 Pen] amoxicillin 875 mg-potassium 1 tab PO BID #28 tab 06/15/18 clavulanate 125 mg tablet Surgical History: Surgical History (Last Reviewed 06/07/18 @ 06:39 by Reynaldo Rehman MD) H/O arthroscopic knee surgery (Resolved) Z98.890 History of cholecystectomy (Resolved) Z98.890, Z90.49 Surgical History: appendectomy, arthroscopy, knee, cholecystectomy, - - . Drainage of right groin abscess. Recent I&D of left groin abscess. 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 HEENT: Denies: Head Aches, Sinus Congestion, Sinus Drainage. Cardiovascular: Denies: Chest Pain, Palpitations. Respiratory: Denies: Cough, Shortness of breath at rest, Sputum production. Gastrointestinal: Denies: Abdominal Pain, Nausea, Vomiting. Genitourinary: Denies: Dysuria. Musculoskeletal: Denies: Joint Pain, Joint Tenderness. Skin: Reports: Skin Changes, - - Left groin abscess. Denies: Rash, Wounds. Neurological: Denies: Numbness, Tingling, Focal weakness. Psychiatric: Denies: Anxiety, Depression, Homicidal Ideations, Suicidal Ideations. Hematologic/ Lymphatic: Denies: Easy Bruising, Easy Bleeding - Physical Exam General: Alert, Oriented x3, Cooperative HEENT: PERRLA, EOMI, Throat is clear. Neck: Supple and nontender. No cervical adenopathy. Lungs: Clear to auscultation. Cardiovascular: Regular rate. Abdomen: Obese. Soft, Non Distended. Large abdominal panniculus with abdominal wall skin crease intertrigo. Associated panniculitis. In the left lower abdominal wall and inguinal area is an area of tenderness and redness. Some firmness and induration. No purulent drainage noted. Small amount exudate on dressing. Measures 15 cm. Extends into vulval area involving the genitocrural area and pubic area. Genitalia: In the left vulval area extending from the genitocrural area to the pubic area is an area of tenderness and redness. Some firmness and induration. No purulent drainage noted. Small amount exudate on dressing. Measures 12 cm. Extremities: No clubbing or cyanosis. Mild edema in lower extremities. Musculoskeletal: No Tenderness to Palpation of Joints or Extremities Neurological: Cranial nerves II-XII grossly intact Psych/Mental Status: Normal Affect, Appropriate Vital Signs Temp Pulse Resp BP Pulse Ox 97.5 F L 80 20 H 125/59 H 94 06/08/18 15:10 06/08/18 15:10 06/08/18 15:10 06/08/18 15:10 06/08/18 15:10 Oxygen Flow Rate (L/min) 2 Oxygen Delivery Method Room Air Weight: 354 lb 4.525 oz Body Mass Index (BMI) 58.9 Intake and Output for Last 24 Hours 06/06/18 06/07/1806/08/18 23:59 23:59 23:59 Intake Total 1625 / 1625 6530 / 6530 Balance 1625 / 1625 6530 / 6530 Microbiology Past 72 Hours 06/07/18 20:20 Gram Stain - Final Wound Abcess - Groin Laboratory Tests Past 24 Hrs 06/07/18 06/07/18 06/08/18 20:20 21:40 05:40 WBC 10.2 RBC 3.89 L Hgb 11.7 L Hct 37.5 MCV 96.4 MCH 30.1 MCHC 31.2 L RDW 14.9 H RDW Differential 51.9 H Plt Count 249 MPV 10.3 Immature Gran % (Auto) 0.700 Neut % (Auto) 65.8 Lymph % (Auto) 26.4 [place] % (Auto) 3.6 Eos % (Auto) 2.8 Baso % (Auto) 0.7 Absolute Neuts (auto) 6.7 Absolute Lymphs (auto) 2.69 Total Counted Not Reportable Sodium Potassium Chloride Carbon Dioxide Anion Gap BUN Creatinine Estim Creat Clear Calc Est GFR (MDRD) Af Amer Est GFR (MDRD) Non-Af BUN/Creatinine Ratio Glucose 471 H* Calcium Urine Amphetamine Pending U Amphetamines Confirm Pending Urine Cocaine Confirm Pending U Cocaine Metab Screen Pending U Benzoylecgonine GC/MS Pending Urine Ethyl Alcohol Pending 06/08/18 05:40 WBC RBC Hgb Hct MCV MCH MCHC RDW RDW Differential Plt Count MPV Immature Gran % (Auto) Neut % (Auto) Lymph % (Auto) [place] % (Auto) Eos % (Auto) Baso % (Auto) Absolute Neuts (auto) Absolute Lymphs (auto) Total Counted Sodium 137 Potassium 3.7 Chloride 98 Carbon Dioxide 29.0 Anion Gap 10 BUN 15 Creatinine 0.93 Estim Creat Clear Calc 72.36 Est GFR (MDRD) Af Amer 85 Est GFR (MDRD) Non-Af 70 BUN/Creatinine Ratio 16.1 Glucose 345 H Calcium 8.1 L Urine Amphetamine U Amphetamines Confirm Urine Cocaine Confirm U Cocaine Metab Screen U Benzoylecgonine GC/MS Urine Ethyl Alcohol POC Glucose 06/08/18 06/08/18 06/08/18 11:27 07:49 03:48 POC Glucose 398 H 406 H 354 H 0706/07/18 06/07/18 22:53 21:30 17:14 POC Glucose 481 H* 473 H* 320 H Diagnostic Data Abdomen/Pelvis CT 06/07/18 03:00 IMPRESSION: 1. No CT evidence of acute intra-abdominal disease. 2. Superficial right lower quadrant abdominal wall inflammation likely representing phlegmon. 3. Hepatomegaly. Electronically Signed: Jeanne Morales MD at 4:50 EDT , Service support , Chest X-Ray 06/07/18 06:42 IMPRESSION: Mild cardiomegaly and pulmonary congestion. Electronically Signed: Jeanne Morales MD at 7:23 EDT , Service support , Assessment/Plan All Active Problems (Last Reviewed 06/07/18 @ 06:39 by Reynaldo Rehman MD) Abscess of vulva (Acute) Soft tissue abscess of inguinal region (Acute) Hyperglycemia (Acute) Cellulitis (Ruled-out) c section (Resolved) H/O arthroscopic knee surgery (Resolved) History of cholecystectomy (Resolved) Abscess (Acute) NSTEMI (non-ST elevated myocardial infarction) (Acute) Hyperglycemia due to type 2 diabetes mellitus (Acute) 1. Diabetic abscess left inguinal area and vulval area (involving the genitocrural and pubic areas). 2. Diabetes mellitus. 3. s/p I&D left groin infection. 4. Hidradenitis. 5. Smoker. 6. History of MRSA. CT reviewed. Patient has a history of inguinal infections and diabetic abscesses mixed with underlying hidradenitis. Continue IV antibiotics with Vancomycin and Zosyn. Recommend operative intervention with surgical preparation of the left inguinal area with incision and drainage and excisional debridement diabetic abscess and partial vulvectomy. Would leave the wound open and begin wound care with the VAC or with daily Silver dressing changes. The VAC would be changed three times per week at 150 mmHg continuous suction. Tissue that is removed will be sent to Pathology for analysis to rule out carcinoma. It will also be sent to Microbiology for culture. A positive culture will necessitate antibiotic therapy. Post discharge, would followup at [facility]. If there is a plateau in the healing process, can proceed with delayed closure with skin grafting. Anticipate increased metabolic demands from the infection and from the surgery. Will check a Prealbumin and encourage nutritional supplementation with protein to help the healing process. Patient was informed of the risks and complications of the procedure including alternatives to surgery. These were discussed with the patient personally. Patient voices understanding and wishes to proceed. Encouraged patient to stop smoking as it may have deleterious effects on wound healing. Code Visit Inpatient E&M: 14398 Init Hosp L2 - ICD-10 - L02.214, N76.4, E11.9, L73.2, Z86.14, F17.200
--- NOTE | 2018-06-08 16:02 | CON.PCM_ITS ---
Reason for Consult Date of Consultation: 06/08/18 Reason for Consultation: Diabetic abscess left inguinal and vulval area. REFERRING PHYSICIAN: Dr. Neville. VENDING TECHNICIAN: Dr. Garnica. History of Present Illness: The patient is a 42 year old female with a history of diabetes mellitus was recently admitted with a left groin infection. It has been intermittent draining. She had been developing increasing redness, pain, and swelling. She was started on IV antibiotics with Vancomycin and Zosyn. Since starting the IV antibiotics the pressure pain has improved a little. She denied any fever. She states she had a left groin infection drained about a month ago, she thinks , at the [facility] office on [facility]. She had a right groin infection drained a couple of years ago. Her WBC has improved from 14.8 to 10.2 after being admitted. Her HgbA1c is high at 10.1. She had a CT Abdomen and Pelvis on 06/07/18 which showed an abnormal attenuation visible within the left lower quadrant abdominal wall presumably related to acute inflammation and infection. This probably corresponds to the area of drainage identified clinically. This is not clearly an abscess but may represent phlegmon. Normal osseous structures. No CT evidence of acute intra-abdominal disease. I was asked to evaluate this patient for surgical options for treatment. Past Medical History Past Medical History (Chronic Problems): Chronic Problems (Last Reviewed 06/07/18 @ 06:39 by Reynaldo Rehman MD) Respiratory failure with hypoxia (Chronic) Hypertension (Chronic) 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 (Chronic) 23/17 cmH20 Anxiety (Chronic) History of MRSA infection (Chronic) Diabetes mellitus (Chronic) Morbid obesity (Chronic) Hyperlipidemia (Chronic) Tobacco abuse (Chronic) Medical History: Medical History (Last Reviewed 06/07/18 @ 06:39 by Reynaldo Rehman MD) c section (Resolved) Abscess (Acute) L02.91 Hypertension (Chronic) I10 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 (Chronic) G47.33 23/17 cmH20 Anxiety (Chronic) F41.9 History of MRSA infection (Chronic) Z86.14 Diabetes mellitus (Chronic) E11.9 Morbid obesity (Chronic) E66.01 Hyperlipidemia (Chronic) E78.5 Tobacco abuse (Chronic) Z72.0 NSTEMI (non-ST elevated myocardial infarction) (Acute) I21.4 Hyperglycemia due to type 2 diabetes mellitus (Acute) E11.65 Allergies cyclobenzaprine HCl [From Flexeril] Allergy (Verified 06/07/18 01:43) Hives venlafaxine [From Effexor] Adverse Reaction (Severe, Verified 06/07/18 01:43) unknown Current Medications Acetaminophen (Tylenol) 650 mg PO Q6H PRN Aspirin (Aspirin, Baby) 81 mg PO DAILYCM KIAN Buspirone HCl (Buspar) 5 mg PO BID KIAN Dicyclomine HCl (Bentyl) 20 mg PO DAILY KIAN Furosemide (Lasix) 80 mg PO BID KIAN Gabapentin (Neurontin) 400 mg PO TIDCM KIAN Glucagon () 1 mg IM .X1 PRN Heparin Sodium (Porcine) (Heparin Na) 5,000 unit SC Q8 KIAN Hydrochlorothiazide (Hctz) 25 mg PO DAILY KIAN Piperacillin Sod/Tazobactam Sod (Zosyn) 3.375 gm in 50 mls @ 12.5 mls/hr IV Q8 KIAN Vancomycin IV Pharmacy to Dose (1 ea/ Sodium Chloride) 500 mls @ 250 mls/hr IV PRN Vancomycin HCl 1,250 mg/ (Sodium Chloride) 275 mls @ 183.333 mls/hr IV Q12H KIAN Ibuprofen (Motrin) 600 mg PO 4X/DAY PRN Insulin Glargine (Lantus (Bkc)) 55 units SC BID KIAN Insulin Human Lispro (Humalog Kwikpen (Bkc)) 35 unit SC 0800,1200,1700 KIAN Insulin Human Lispro (Humalog Kwikpen (Bkc)) 0 unit SC ACHS KIAN Lisinopril (Zestril) 20 mg PO DAILY KIAN Magnesium Hydroxide (Milk Of Magnesia) 30 ml PO DAILY PRN Multivitamins/Minerals (Multivitamin With Minerals) 1 tablet PO DAILY@0800 KIAN Oxycodone HCl (Oxyir) 5 mg PO Q6H PRN Pantoprazole Sodium (Protonix) 40 mg PO DAILY [facility] Home Medications: Ambulatory Orders Medication Instructions Recorded Buspirone HCl [Buspar] 15 mg PO TID PRN 09/29/13 Lansoprazole [Prevacid] 25 mg PO DAILY 09/29/13 Lisinopril [Zestril] 20 mg PO DAILY 09/29/13 Hydrochlorothiazide [Hctz] 25 mg PO DAILY 02/02/17 Aspirin [Aspirin, Baby] 81 mg PO DAILY 03/26/17 Multivits,Ca,Minerals/Iron/FA 1 ea PO DAILY 03/26/17 [Women's Daily Formula Caplet] [place]-3 Fatty Acids [[place]-3] 1,000 mg PO DAILY 03/26/17 Gabapentin [Neurontin] 400 mg PO TID 05/29/17 Oxygen, Home [Home Oxygen] 2 - 3 lpm NASAL DAILY #1 unit 09/13/17 B12/Levomefolate Calcium/B-6 1 ea PO DAILY 10/07/17 [Folbic Rf Tablet] Dicyclomine HCl [Bentyl] 20 mg PO DAILY 10/07/17 Insulin Aspart [Novolog Flexpen] 35 units SC TIDCM #0 10/08/17 Compression Socks, Medium [Futuro 1 ea MC DAILY #1 ea 02/28/18 Restoring] Furosemide [Lasix] 80 mg PO BID #10 tab 02/28/18 Ibuprofen 800 mg PO 4X/DAY PRN PRN 06/07/18 Dulaglutide [Trulicity] 0.5 ml SQ QWEEK MDD 0.5ml 06/08/18 Cefadroxil [Duracef] 1,000 mg PO BID 14 Days #56 cap 06/10/18 Insulin Glargine [Lantus SoloStar 55 units SC BID #5 pen 06/10/18 Pen] amoxicillin 875 mg-potassium 1 tab PO BID #28 tab 06/15/18 clavulanate 125 mg tablet Surgical History: Surgical History (Last Reviewed 06/07/18 @ 06:39 by Reynaldo Rehman MD) H/O arthroscopic knee surgery (Resolved) Z98.890 History of cholecystectomy (Resolved) Z98.890, Z90.49 Surgical History: appendectomy, arthroscopy, knee, cholecystectomy, - - C- section. Drainage of right groin abscess. Recent I&D of left groin abscess. 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 HEENT: Denies: Head Aches, Sinus Congestion, Sinus Drainage. Cardiovascular: Denies: Chest Pain, Palpitations. Respiratory: Denies: Cough, Shortness of breath at rest, Sputum production. Gastrointestinal: Denies: Abdominal Pain, Nausea, Vomiting. Genitourinary: Denies: Dysuria. Musculoskeletal: Denies: Joint Pain, Joint Tenderness. Skin: Reports: Skin Changes, - - Left groin abscess. Denies: Rash , Wounds. Neurological: Denies: Numbness, Tingling, Focal weakness. Psychiatric: Denies: Anxiety, Depression, Homicidal Ideations, Suicidal Ideations. Hematologic/ Lymphatic: Denies: Easy Bruising, Easy Bleeding - Physical Exam General: Alert, Oriented x3, Cooperative HEENT: PERRLA, EOMI, Throat is clear. Neck: Supple and nontender. No cervical adenopathy. Lungs: Clear to auscultation. Cardiovascular: Regular rate. Abdomen: Obese. Soft, Non Distended. Large abdominal panniculus with abdominal wall skin crease intertrigo. Associated panniculitis. In the left lower abdominal wall and inguinal area is an area of tenderness and redness. Some firmness and induration. No purulent drainage noted. Small amount exudate on dressing. Measures 15 cm. Extends into vulval area involving the genitocrural area and pubic area. Genitalia: In the left vulval area extending from the genitocrural area to the pubic area is an area of tenderness and redness. Some firmness and induration. No purulent drainage noted. Small amount exudate on dressing. Measures 12 cm. Extremities: No clubbing or cyanosis. Mild edema in lower extremities. Musculoskeletal: No Tenderness to Palpation of Joints or Extremities Neurological: Cranial nerves II-XII grossly intact Psych/Mental Status: Normal Affect, Appropriate Vital Signs Temp Pulse Resp BP Pulse Ox 97.5 F L 80 20 H 125/59 H 94 06/08/18 15:10 06/08/18 15:10 06/08/18 15:10 06/08/18 15:10 06/08/18 15:10 Oxygen Flow Rate (L/min) 2 Oxygen Delivery Method Room Air Weight: 354 lb 4.525 oz Body Mass Index (BMI) 58.9 Intake and Output for Last 24 Hours 06/06/18 06/07/1806/08/18 23:59 23:59 23:59 Intake Total 1625 / 1625 6530 / 6530 Balance 1625 / 1625 6530 / 6530 Microbiology Past 72 Hours 06/07/18 20:20 Gram Stain - Final Wound Abcess - Groin Laboratory Tests Past 24 Hrs 06/07/18 06/07/18 06/08/18 20:20 21:40 05:40 WBC 10.2 RBC 3.89 L Hgb 11.7 L Hct 37.5 MCV 96.4 MCH 30.1 MCHC 31.2 L RDW 14.9 H RDW Differential 51.9 H Plt Count 249 MPV 10.3 Immature Gran % (Auto) 0.700 Neut % (Auto) 65.8 Lymph % (Auto) 26.4 [place] % (Auto) 3.6 Eos % (Auto) 2.8 Baso % (Auto) 0.7 Absolute Neuts (auto) 6.7 Absolute Lymphs (auto) 2.69 Total Counted Not Reportable Sodium Potassium Chloride Carbon Dioxide Anion Gap BUN Creatinine Estim Creat Clear Calc Est GFR (MDRD) Af Amer Est GFR (MDRD) Non-Af BUN/Creatinine Ratio Glucose 471 H* Calcium Urine Amphetamine Pending U Amphetamines Confirm Pending Urine Cocaine Confirm Pending U Cocaine Metab Screen Pending U Benzoylecgonine GC/MS Pending Urine Ethyl Alcohol Pending 06/08/18 05:40 WBC RBC Hgb Hct MCV MCH MCHC RDW RDW Differential Plt Count MPV Immature Gran % (Auto) Neut % (Auto) Lymph % (Auto) [place] % (Auto) Eos % (Auto) Baso % (Auto) Absolute Neuts (auto) Absolute Lymphs (auto) Total Counted Sodium 137 Potassium 3.7 Chloride 98 Carbon Dioxide 29.0 Anion Gap 10 BUN 15 Creatinine 0.93 Estim Creat Clear Calc 72.36 Est GFR (MDRD) Af Amer 85 Est GFR (MDRD) Non-Af 70 BUN/Creatinine Ratio 16.1 Glucose 345 H Calcium 8.1 L Urine Amphetamine U Amphetamines Confirm Urine Cocaine Confirm U Cocaine Metab Screen U Benzoylecgonine GC/MS Urine Ethyl Alcohol POC Glucose 06/08/18 06/08/18 06/08/18 11:27 07:49 03:48 POC Glucose 398 H 406 H 354 H 0706/07/18 06/07/18 22:53 21:30 17:14 POC Glucose 481 H* 473 H* 320 H Diagnostic Data Abdomen/Pelvis CT 06/07/18 03:00 IMPRESSION: 1. No CT evidence of acute intra-abdominal disease. 2. Superficial right lower quadrant abdominal wall inflammation likely representing phlegmon. 3. Hepatomegaly. Electronically Signed: Jeanne Morales MD at 4:50 EDT , Service support , Chest X-Ray 06/07/18 06:42 IMPRESSION: Mild cardiomegaly and pulmonary congestion. Electronically Signed: Jeanne Morales MD at 7:23 EDT , Service support , Assessment/Plan All Active Problems (Last Reviewed 06/07/18 @ 06:39 by Reynaldo Rehman MD) Abscess of vulva (Acute) Soft tissue abscess of inguinal region (Acute) Hyperglycemia (Acute) Cellulitis (Ruled-out) c section (Resolved) H/O arthroscopic knee surgery (Resolved) History of cholecystectomy (Resolved) Abscess (Acute) NSTEMI (non-ST elevated myocardial infarction) (Acute) Hyperglycemia due to type 2 diabetes mellitus (Acute) 1. Diabetic abscess left inguinal area and vulval area (involving the genitocrural and pubic areas). 2. Diabetes mellitus. 3. s/p I&D left groin infection. 4. Hidradenitis. 5. Smoker. 6. History of MRSA. CT reviewed. Patient has a history of inguinal infections and diabetic abscesses mixed with underlying hidradenitis. Continue IV antibiotics with Vancomycin and Zosyn. Recommend operative intervention with surgical preparation of the left inguinal area with incision and drainage and excisional debridement diabetic abscess and partial vulvectomy. Would leave the wound open and begin wound care with the VAC or with daily Silver dressing changes. The VAC would be changed three times per week at 150 mmHg continuous suction. Tissue that is removed will be sent to Pathology for analysis to rule out carcinoma. It will also be sent to Microbiology for culture. A positive culture will necessitate antibiotic therapy. Post discharge, would followup at the Wound Center. If there is a plateau in the healing process, can proceed with delayed closure with skin grafting. Anticipate increased metabolic demands from the infection and from the surgery. Will check a Prealbumin and encourage nutritional supplementation with protein to help the healing process. Patient was informed of the risks and complications of the procedure including alternatives to surgery. These were discussed with the patient personally. Patient voices understanding and wishes to proceed. Encouraged patient to stop smoking as it may have deleterious effects on wound healing. Code Visit Inpatient E&M: 99709 Init Hosp L2 - ICD-10 - L02.214, N76.4, E11.9, L73.2, Z86.14, F17.200
[2018-06-08 16:55] LABS: Bedside Glucose 404 mg/dL (70-110)
[2018-06-08 21:29] LABS: Vancomycin, Trough Level 7.4 ug/mL (5.0-15.0)
[2018-06-08] MEDS: 0.9% NaCl Peripheral Flush Adult/Peds IV (22:42)
[2018-06-08] MEDS: Furosemide 80 MG Tablet PO (22:46)
[2018-06-08 23:56] LABS: Bedside Glucose 292 mg/dL (70-110)
[2018-06-09] VITALS (14 sets, daily range): BP systolic 119–159; BP diastolic 55–93; PULSE 46–92; RESP 16–20; TEMP 36.1–37.1; O2SAT 94–97; BMI 58.9
[2018-06-09] MEDS: oxyCODONE 5 MG Tablet PO ×2 (02:38→20:12)
[2018-06-09] MEDS: Acetaminophen 325 MG Tablet 650 MG PO ×2 (02:38→20:12)
--- NOTE | 2018-06-09 02:53 | NURSING ---
While removing the oxyir, power surged occurred in med room. Went back in later to correct count. Noted time discrepancy with administeration time and removal of med time.
--- NOTE | 2018-06-09 06:00 | EKG12_ITS ---
Test Reason : PRE OP Blood Pressure : / mmHG Vent. Rate : 070 BPM Atrial Rate : 070 BPM P-R Int : 140 ms QRS Dur : 090 ms QT Int : 440 ms P-R-T Axes : 053 030 059 degrees QTc Int : 475 ms Normal sinus rhythm Otherwise normal ECG When compared with ECG of 07-OCT-2017 23:22, Current undetermined rhythm precludes rhythm comparison, needs review Confirmed by HASMUKH LORA, LILIANA ([id number]), editor trade journal ANNELIESE YOUNG ([id number]) on 06/19/2018 2:00:47 PM Referred By: DOMINGO Confirmed By:LILIANA NOE MD
[2018-06-09] MEDS: Piperacil/Tazobactam 3.375 GM/50 ML ML IV ×2 (06:18→22:57)
[2018-06-09] MEDS: 0.9% Normal Saline 1,000 ML 100 ML IV ×2 (06:18→20:10)
--- NOTE | 2018-06-09 07:06 | PHA.PHARE_ITS ---
Consult Pharmacy has been consulted to manage selected antiobiotic: Vancomycin Type of Consult: Follow-up Suspected Infection: Skin/Soft tissue Prior Doses of Antibiotics Received/Current Regimen: Medications Vancomycin HCl 1,250 mg/ (Sodium Chloride) 275 mls @ 183.333 mls/hr IV Q12H [facility] Last Admin: 06/08/18 20:53 Dose: 183.333 mls/hr Labs: Sodium 137 mmol/L (136-145) 06/08/18 05:40 Potassium 3.7 mmol/L (3.5-5.1) 06/08/18 05:40 Chloride 98 mmol/L (98-107) 06/08/18 05:40 Carbon Dioxide 29.0 mmol/L (21.0-32.0) 06/08/18 05:40 Anion Gap 10 (5-15) 06/08/18 05:40 BUN 15 mg/dL (7-18) 06/08/18 05:40 Creatinine 0.93 mg/dL (0.55-1.02) 06/08/18 05:40 Est GFR (MDRD) Af Amer 85 mL/min (>60) 06/08/18 05:40 Est GFR (MDRD) Non-Af 70 mL/min (>60) 06/08/18 05:40 BUN/Creatinine Ratio 16.1 RATIO (10-20) 06/08/18 05:40 Glucose 345 mg/dL (74-106) H 06/08/18 05:40 Vancomycin Trough 7.4 ug/mL (5.0-15.0) 06/08/18 20:50 Microbiology: Microbiology 06/07/18 20:20 Wound Abcess - Groin Gram Stain - Final Weight used for dosin kg Estimated Creatinine Clearance: 72 mL/min Pharmacy Plan for Drug Dosing: Vancomycin trough not at goal but considering patient's BMI and renal function, likely not yet at steady-state. Recommend to increase slightly to 1500mg IV q12h , shorten interval to next dose. Re-check Friday. Pharmacy Service will continue to monitor and adjust dosing as required. Follow-Up Labs: Trough Vancomycin - 06/12/18 @ 0600
[2018-06-09 07:11] LABS: Bedside Glucose 267 mg/dL (70-110)
[2018-06-09 08:24] LABS: Absolute Neutrophil Count 6.8 X10^3/uL (2.0-7.7); Basophil# 0.07 X10^3/uL; Basophil% 0.7 % (0-1); Eosinophil# 0.27 X10^3/uL; Eosinophils% 2.7 % (0-5); Lymphocyte % 23.7 % (19-41); Mean Corp Hgb Conc 31.6 g/gl (32-36); Mean Corpuscular Hgb 30.2 pg (27.0-32.0); Mean Corpuscular Volume 95.5 fL (81-99); Mean Platelet Vol. 9.7 fl (6.2-12.0); Monocyte# 0.51 X10^3/uL; Neutrophil # 6.82 X10^3/uL (2.7-7.7); Neutrophil % 67.3 % (47-70); Platelet Count 236 K/mm3 (150-450); RBC Distribution Width CV 14.6 % (11.6-14.6); RBC Distribution Width SD 49.8 fl (35.1-43.9); Red Blood Count 3.98 M/mm3 (4.2-5.4); White Blood Count 10.1 K/mm3 (4.4-11.0)
[2018-06-09 08:25] LABS: POSITIVE COUNT NO; POSITIVE DIFFERENTIAL NO; POSITIVE MORPHOLOGY NO
[2018-06-09 09:26] LABS: Anion Gap 10 (5-15); BUN 10 mg/dL (7-18); BUN/Creat Ratio 14.4 RATIO (10-20); Calcium,Total 8.1 mg/dL (8.5-10.1); Chloride 102 mmol/L (98-107); Creatinine, Serum 0.69 mg/dL (0.55-1.02); EST Glomerular Filtration Rate 99 mL/min (>60); Est Glom Filt Rate - Afr Amer 120 mL/min (>60); Estimated Creatinine Clearance 97.52 ml/min; Glucose 241 mg/dL (74-106); Sodium Level 137 mmol/L (136-145)
[2018-06-09] MEDS: Insulin Lispro 100 UNIT/ML INSULN.PEN SQ ×2 (10:05→20:09)
--- NOTE | 2018-06-09 10:18 | PCM.PN.HOSP ---
Subjective: Patient seen and examined. Has no complaints this morning. She is waiting to go to surgery later today. She denies any fever or chills, any cough or chest pain, any abdominal pain, any diarrhea vomiting review of systems otherwise negative. Vitals/I&O's: Vital Signs Temp Pulse Resp BP Pulse Ox 97.7 F L 75 18 157/90 H 95 06/09/18 09:57 06/09/18 09:57 06/09/18 09:57 06/09/18 09:57 06/09/18 09:57 Oxygen Flow Rate (L/min) 2 Oxygen Delivery Method Room Air Weight: 354 lb 4.525 oz Body Mass Index (BMI) 58.9 Intake and Output for Last 24 Hours 06/07/18 06/08/18 06/09/18 23:59 23:59 23:59 Intake Total 1625 / 1625 7726 / 7726 2318 / 2318 Balance 1625 / 1625 7726 / 7726 2318 / 2318 General: Alert, Oriented x3, Cooperative, No apparent distress HEENT: Atraumatic, PERRLA, EOMI, Normocephalic Oral: Moist Mucosa Neck: Supple, No JVD, Negative Carotid Bruits Lungs: Clear to auscultation, Normal air movement, No rhonchi, No wheeze, No rales Cardiovascular: Regular rate, Regular Rhythm, Normal S1, Normal S2, No murmurs Abdomen: Bowel Sounds Present, Soft, Non Tender, Non-Distended, No Hepato-splenomegaly Extremities: No clubbing, No cyanosis, No edema, Capillary Refill Less than 3 Seconds Skin: - - left groin abscess looks better; drainage has improved. Musculoskeletal: No Tenderness to Palpation of Joints or Extremities Lymphatic: No Cervical, Supraclavicular, or Inguinal Adenopathy Neurological: Cranial nerves II-XII grossly intact Psych/Mental Status: Normal Affect, Appropriate, Alert and oriented to time, place, person, mood and affect Microbiology Past 72 Hours 06/07/18 20:20 Wound Abcess - Groin Gram Stain - Final 06/07/18 20:20 Wound Abcess - Groin Wound Culture - Preliminary Gram positive gil Laboratory Results 06/08/18 11:27: POC Glucose 398 H 06/08/18 16:45: POC Glucose 404 H 06/08/18 20:50: Vancomycin Trough 7.4 06/08/18 22:35: POC Glucose 292 H 06/09/18 06:59: POC Glucose 267 H 06/09/18 08:12: WBC 10.1, RBC 3.98 L, Hgb 12.0, Hct 38.0, MCV 95.5, MCH 30.2, MCHC 31.6 L, RDW 14.6, RDW Differential 49.8 H, Plt Count 236, MPV 9.7, Immature Gran % (Auto) 0.600, Neut % (Auto) 67.3, Lymph % (Auto) 23.7, [place] % (Auto) 5.0, Eos % (Auto) 2.7, Baso % (Auto) 0.7, Absolute Neuts (auto) 6.8, Absolute Lymphs (auto) 2.40, Total Counted Not Reportable 06/09/18 08:12: Sodium 137, Potassium 4.0, Chloride 102, Carbon Dioxide 25.0, Anion Gap 10, BUN 10, Creatinine 0.69, Estim Creat Clear Calc 97.52, Est GFR (MDRD) Af Amer 120, Est GFR (MDRD) Non-Af 99, BUN/Creatinine Ratio 14.4, Glucose 241 H, Calcium 8.1 L Current Medications Acetaminophen (Tylenol) 650 mg PO Q6H PRN PRN PRN Reason: Mild Pain (scale 0-3)/T>100.7 Last Admin: 06/09/18 02:38 Dose: 650 mg [facility]irin [facility], [facility]) [facility] Last Admin: 06/09/18 07:59 Dose: Not Given Buspirone HCl (Buspar) 5 mg PO BID [facility] Last Admin: 06/09/18 08:00 Dose: Not Given Dextrose (D50w Syringe) 0 gm IV X1 PRN; Protocol PRN Reason: Hypoglycemia Dicyclomine HCl (Bentyl) 20 mg PO DAILY [facility] Last Admin: 06/09/18 08:00 Dose: Not Given Furosemide (Lasix) 80 mg PO BID [facility] Last Admin: 06/09/18 08:00 Dose: Not Given Gabapentin (Neurontin) 400 mg PO TIDCM [facility] Last Admin: 06/09/18 08:00 Dose: Not Given Glucagon () 1 mg IM .X1 PRN PRN Reason: Hypoglycemia Heparin Sodium (Porcine) (Heparin Na) 5,000 unit SC Q8 [facility] Last Admin: 06/09/18 03:45 Dose: Not Given Hydrochlorothiazide (Hctz) 25 mg PO DAILY [facility] Last Admin: 06/08/18 09:12 Dose: Not Given Sodium Chloride () 1,000 mls @ 100 mls/hr IV .Q10H [facility] Last Admin: 06/09/18 06:18 Dose: 100 mls/hr Piperacillin Sod/Tazobactam Sod (Zosyn) 3.375 gm in 50 mls @ 12.5 mls/hr IV Q8 [facility] Last Admin: 06/09/18 06:18 Dose: 12.5 mls/hr Vancomycin IV Pharmacy to Dose (1 ea/ Sodium Chloride) 500 mls @ 250 mls/hr IV PRN PRN PRN Reason: Protocol Vancomycin HCl 1,250 mg/ (Sodium Chloride) 275 mls @ 183.333 mls/hr IV Q12H [facility] Stop: 06/09/18 10:29 Last Admin: 06/08/18 20:53 Dose: 183.333 mls/hr Vancomycin HCl 1,500 mg/ (Sodium Chloride) 530 mls @ 250 mls/hr IV Q12H [facility] Ibuprofen (Motrin) 600 mg PO 4X/DAY PRN PRN Reason: PAIN Last Admin: 06/08/18 00:15 Dose: 600 mg Insulin Glargine (Lantus (Bkc)) 55 units SC BID [facility] Last Admin: 06/09/18 10:06 Dose: 35 units Insulin Human Lispro (Humalog Kwikpen (Bkc)) 35 unit SC 0800,1200,1700 [facility] Last Admin: 06/09/18 08:20 Dose: Not Given Insulin Human Lispro (Humalog Kwikpen (Bkc)) 0 unit SQ Q6 [facility] PRN Reason: Protocol Last Admin: 06/09/18 10:05 Dose: 4 u Lisinopril (Zestril) 20 mg PO DAILY [facility] Last Admin: 06/08/18 09:12 Dose: Not Given Magnesium Hydroxide (Milk Of Magnesia) 30 ml PO DAILY PRN PRN PRN Reason: Constipation Multivitamins/Minerals (Multivitamin With Minerals) 1 tablet PO DAILY@0800 [facility] Last Admin: 06/09/18 07:59 Dose: Not Given Oxycodone HCl (Oxyir) 5 mg PO Q6H PRN PRN PRN Reason: SEVERE PAIN (6-09/09) Last Admin: 06/09/18 02:38 Dose: 5 mg Pantoprazole Sodium (Protonix) 40 mg PO DAILY [facility] Last Admin: 06/09/18 08:00 Dose: Not Given Sodium Chloride () 5 - 30 ml IV UD PRN PRN Reason: SALINE FLUSH Last Admin: 06/08/18 22:42 Dose: 20 ml Medical Necessity - Tobacco Use Smoking Status: Current every day smoker Assessment/Plan All Active Problems (Last Reviewed 06/07/18 @ 06:39 by Reynaldo Rehman MD) Hyperglycemia (Acute) Cellulitis (Ruled-out) c section (Resolved) H/O arthroscopic knee surgery (Resolved) History of cholecystectomy (Resolved) Abscess (Acute) NSTEMI (non-ST elevated myocardial infarction) (Acute) Hyperglycemia due to type 2 diabetes mellitus (Acute) 42 year old female admitted with abscess in her left groin 1. Left groin abscess for incision and drainage today. Looks better though has no leucocytosis. remains on IV vancomycin wound cultured Beta streptococcus, coagulase negative Staph and gram positive rods, further studies to follow; will maintain IV vancomycin for now Keep n.p.o. past midnight. plastic surgery on board: per notes, has history of inguinal infections and diabetic abscesses status with underlying hidradenitis. Recommend operative intervention with excisional debridement of diabetic abscess and partial vulvectomy. Wound to be left open and to begin wound care with a VAC O with daily Silvadene dressing changes. VAC to be changed 3 times per week at 1 50 mmHg continuous suction. Patient will be sent to pathology for analysis to rule out carcinoma and also sent to microbiology.Post dicharge, may need wound grafting if there is plateau in healing process. 2. Diabetes type 2: Stilll very poorly controlled. Increased lantus to 55IU bid. Will give lantus 30IU this morning instead of 55IU as patient is NPO, and I cannot be sure when the surgery will be. A1C 10.1 on NPO sliding scale. Accuchecks q6hrs 3. HTN: on HCTZ and furosemide as well as lisinopril. 4. Chronic hypoxic respiratory failure due to LOGAN on 2L of oxygen 5. LOGAN says she is compliant with her CPAP. For relatives to bring CPAP from home. 6. Anxiety: on buspar. 7. DVT prophylaxis: heparin Code Visit Inpatient E&M: 18067 Subs Hosp L3
--- NOTE | 2018-06-09 10:26 | PN_ITS ---
Subjective: Patient seen and examined. Has no complaints this morning. She is waiting to go to surgery later today. She denies any fever or chills, any cough or chest pain, any abdominal pain, any diarrhea vomiting review of systems otherwise negative. Vitals/I&O's: Vital Signs Temp Pulse Resp BP Pulse Ox 97.7 F L 75 18 157/90 H 95 06/09/18 09:57 06/09/18 09:57 06/09/18 09:57 06/09/18 09:57 06/09/18 09:57 Oxygen Flow Rate (L/min) 2 Oxygen Delivery Method Room Air Weight: 354 lb 4.525 oz Body Mass Index (BMI) 58.9 Intake and Output for Last 24 Hours 06/07/18 06/08/18 06/09/18 23:59 23:59 23:59 Intake Total 1625 / 1625 7726 / 7726 2318 / 2318 Balance 1625 / 1625 7726 / 7726 2318 / 2318 General: Alert, Oriented x3, Cooperative, No apparent distress HEENT: Atraumatic, PERRLA, EOMI, Normocephalic Oral: Moist Mucosa Neck: Supple, No JVD, Negative Carotid Bruits Lungs: Clear to auscultation, Normal air movement, No rhonchi, No wheeze, No rales Cardiovascular: Regular rate, Regular Rhythm, Normal S1, Normal S2, No murmurs Abdomen: Bowel Sounds Present, Soft, Non Tender, Non-Distended, No Hepato- splenomegaly Extremities: No clubbing, No cyanosis, No edema, Capillary Refill Less than 3 Seconds Skin: - - left groin abscess looks better; drainage has improved. Musculoskeletal: No Tenderness to Palpation of Joints or Extremities Lymphatic: No Cervical, Supraclavicular, or Inguinal Adenopathy Neurological: Cranial nerves II-XII grossly intact Psych/Mental Status: Normal Affect, Appropriate, Alert and oriented to time, place, person, mood and affect Microbiology Past 72 Hours 06/07/18 20:20 Wound Abcess - Groin Gram Stain - Final 06/07/18 20:20 Wound Abcess - Groin Wound Culture - Preliminary Gram positive gil Laboratory Results 06/08/18 11:27: POC Glucose 398 H 06/08/18 16:45: POC Glucose 404 H 06/08/18 20:50: Vancomycin Trough 7.4 06/08/18 22:35: POC Glucose 292 H 06/09/18 06:59: POC Glucose 267 H 06/09/18 08:12: WBC 10.1, RBC 3.98 L, Hgb 12.0, Hct 38.0, MCV 95.5, MCH 30.2, MCHC 31.6 L, RDW 14.6, RDW Differential 49.8 H, Plt Count 236, MPV 9.7, Immature Gran % (Auto) 0.600, Neut % (Auto) 67.3, Lymph % (Auto) 23.7, [place] % ( Auto) 5.0, Eos % (Auto) 2.7, Baso % (Auto) 0.7, Absolute Neuts (auto) 6.8, Absolute Lymphs (auto) 2.40, Total Counted Not Reportable 06/09/18 08:12: Sodium 137, Potassium 4.0, Chloride 102, Carbon Dioxide 25.0, Anion Gap 10, BUN 10, Creatinine 0.69, Estim Creat Clear Calc 97.52, Est GFR ( MDRD) Af Amer 120, Est GFR (MDRD) Non-Af 99, BUN/Creatinine Ratio 14.4, Glucose 241 H, Calcium 8.1 L Current Medications Acetaminophen (Tylenol) 650 mg PO Q6H PRN PRN PRN Reason: Mild Pain (scale 0-3)/T>100.7 Last Admin: 06/09/18 02:38 Dose: 650 mg Aspirin ([facility]in, Baby) [facility] Last Admin: 06/09/18 07:59 Dose: Not Given Buspirone HCl (Buspar) 5 mg PO BID [facility] Last Admin: 06/09/18 08:00 Dose: Not Given Dextrose (D50w Syringe) 0 gm IV X1 PRN; Protocol PRN Reason: Hypoglycemia Dicyclomine HCl (Bentyl) 20 mg PO DAILY [facility] Last Admin: 06/09/18 08:00 Dose: Not Given Furosemide (Lasix) 80 mg PO BID [facility] Last Admin: 06/09/18 08:00 Dose: Not Given Gabapentin (Neurontin) 400 mg PO TIDCM [facility] Last Admin: 06/09/18 08:00 Dose: Not Given Glucagon () 1 mg IM .X1 PRN PRN Reason: Hypoglycemia Heparin Sodium (Porcine) (Heparin Na) 5,000 unit SC Q8 [facility] Last Admin: 06/09/18 03:45 Dose: Not Given Hydrochlorothiazide (Hctz) 25 mg PO DAILY [facility] Last Admin: 06/08/18 09:12 Dose: Not Given Sodium Chloride () 1,000 mls @ 100 mls/hr IV .Q10H [facility] Last Admin: 06/09/18 06:18 Dose: 100 mls/hr Piperacillin Sod/Tazobactam Sod (Zosyn) 3.375 gm in 50 mls @ 12.5 mls/hr IV Q8 [facility] Last Admin: 06/09/18 06:18 Dose: 12.5 mls/hr Vancomycin IV Pharmacy to Dose (1 ea/ Sodium Chloride) 500 mls @ 250 mls/hr IV PRN PRN PRN Reason: Protocol Vancomycin HCl 1,250 mg/ (Sodium Chloride) 275 mls @ 183.333 mls/hr IV Q12H [facility] Stop: 06/09/18 10:29 Last Admin: 06/08/18 20:53 Dose: 183.333 mls/hr Vancomycin HCl 1,500 mg/ (Sodium Chloride) 530 mls @ 250 mls/hr IV Q12H [facility] Ibuprofen (Motrin) 600 mg PO 4X/DAY PRN PRN Reason: PAIN Last Admin: 06/08/18 00:15 Dose: 600 mg Insulin Glargine (Lantus (Bkc)) 55 units SC BID [facility] Last Admin: 06/09/18 10:06 Dose: 35 units Insulin Human Lispro (Humalog Kwikpen (Bkc)) 35 unit SC 0800,1200,1700 [facility] Last Admin: 06/09/18 08:20 Dose: Not Given Insulin Human Lispro (Humalog Kwikpen (Bkc)) 0 unit SQ Q6 [facility] PRN Reason: Protocol Last Admin: 06/09/18 10:05 Dose: 4 u Lisinopril (Zestril) 20 mg PO DAILY [facility] Last Admin: 06/08/18 09:12 Dose: Not Given Magnesium Hydroxide (Milk Of Magnesia) 30 ml PO DAILY PRN PRN PRN Reason: Constipation Multivitamins/Minerals (Multivitamin With Minerals) 1 tablet PO DAILY@0800 [facility] Last Admin: 06/09/18 07:59 Dose: Not Given Oxycodone HCl (Oxyir) 5 mg PO Q6H PRN PRN PRN Reason: SEVERE PAIN (6-09/09) Last Admin: 06/09/18 02:38 Dose: 5 mg Pantoprazole Sodium (Protonix) 40 mg PO DAILY [facility] Last Admin: 06/09/18 08:00 Dose: Not Given Sodium Chloride () 5 - 30 ml IV UD PRN PRN Reason: SALINE FLUSH Last Admin: 06/08/18 22:42 Dose: 20 ml Medical Necessity - Tobacco Use Smoking Status: Current every day smoker Assessment/Plan All Active Problems (Last Reviewed 06/07/18 @ 06:39 by Reynaldo Rehman MD) Hyperglycemia (Acute) Cellulitis (Ruled-out) c section (Resolved) H/O arthroscopic knee surgery (Resolved) History of cholecystectomy (Resolved) Abscess (Acute) NSTEMI (non-ST elevated myocardial infarction) (Acute) Hyperglycemia due to type 2 diabetes mellitus (Acute) 42 year old female admitted with abscess in her left groin 1. Left groin abscess * for incision and drainage today. Looks better though * has no leucocytosis. remains on IV vancomycin * wound cultured Beta streptococcus, coagulase negative Staph and gram positive rods, further studies to follow; will maintain IV vancomycin for now * Keep n.p.o. past midnight. * plastic surgery on board: per notes, has history of inguinal infections and diabetic abscesses status with underlying hidradenitis. Recommend operative intervention with excisional debridement of diabetic abscess and partial vulvectomy. Wound to be left open and to begin wound care with a VAC O with daily Silvadene dressing changes. VAC to be changed 3 times per week at 1 50 mmHg continuous suction. Patient will be sent to pathology for analysis to rule out carcinoma and also sent to microbiology.Post dicharge, may need wound grafting if there is plateau in healing process. 2. Diabetes type 2: * Stilll very poorly controlled. Increased lantus to 55IU bid. * Will give lantus 30IU this morning instead of 55IU as patient is NPO, and I cannot be sure when the surgery will be. * A1C 10.1 * on NPO sliding scale. Accuchecks q6hrs * * 3. HTN: on HCTZ and furosemide as well as lisinopril. 4. Chronic hypoxic respiratory failure due to LOGAN * on 2L of oxygen 5. LOGAN * says she is compliant with her CPAP. For relatives to bring CPAP from home. 6. Anxiety: on buspar. 7. DVT prophylaxis: heparin Code Visit Inpatient E&M: 41226 Subs Hosp L3
[2018-06-09 11:20] LABS: Bedside Glucose 231 mg/dL (70-110)
[2018-06-09] MEDS: 0.9% NaCl Peripheral Flush Adult/Peds IV ×2 (12:46→23:36)
[2018-06-09] MEDS: Ondansetron 4 MG/2 ML Vial IV (12:46)
[2018-06-09 13:11] LABS: Bedside Glucose 200 mg/dL (70-110)
--- NOTE | 2018-06-09 13:40 | ABS_PTH ---
PATIENT: MACARIO OVERTON LOC: MS3 U#:[id number] AGE/SX: 42/F ROOM: [facility] [place] RE06/07/[address]: Dr. Ling Neville MD : [id number] BED: 1 DIS: 06/10/2018 SPEC #: [id number] RECD: 06/10/18 08:56 STATUS: NAGA REQ #: [id number] CALOS: 06/09/18 13:[address]: Benjamin Garnica DEPT: SURGICAL PATHOLOGY RECD BY: Jannette Valera ENTERED: 06/10/18 10:57 SP TYPE: Abscess OTHR DR: MD Dr. Benjamin Capps MD Dr. Nana Yaa Koram, MD Dr. Nhan Luu, MD Tissues: Inguinal region, NOS Procedures: Special Stain Group I Surgery Specimen Level III AFB Stain (control) GMS Stain (control) Comments: @ Ordering doctor for SUIII edited from to @ by WILLY at 06/10/18 1539 @ Submitting doctor edited from to @ by RGOOD at 06/10/18 1539 HEADER OPERATION: Surgical preparation left inguinal and vulvar area PRE-OP DIAGNOSIS: Diabetic abscess left inguinal and vulvar area TISSUE SUBMITTED: Left inguinal and vulvar diabetic abscess ? soft tissue MICROSCOPIC DIAGNOSIS Left inguinal and vulvar diabetic abscess: Skin with underlying tissue with acute and chronic inflammation and abscess formation. Special stains for acid fast bacilli and fungi are negative for organisms; matched controls are appropriate. YAMILET:andreina 06/11/18 MICROSCOPIC DESCRIPTION Slides are reviewed. GROSS DESCRIPTION Received in fixative is one container labeled with the patient's name and designated soft tissue left inguinal and vulvar diabetic abscess. The specimen consists of a piece of skin with underlying tissue measuring 18 x 13 cm and up to 4 cm in thickness. Sections do not reveal any mass lesion. Java Application Developer sections are submitted in three cassettes. / YAMILET:andreina 06/10/18 TC:2 CPT: 50611, 84479 x2
[2018-06-09 18:01] LABS: Pregnancy, Serum, hCG Quali. NEGATIVE Negative (0-9 Nonpreg)
--- NOTE | 2018-06-09 18:27 | OP.PN_ITS ---
Immediate Post-Op Note Date of Procedure: 06/09/18 Primary Surgeon/Physician: Benjamin Garnica senior product marketing manager: None Pre-Operative Diagnosis: 1. Diabetic abscess left inguinal area and vulval area (involving the genitocrural and pubic areas). 2. Diabetes mellitus. 3. s/p I&D left groin infection. 4. Hidradenitis. 5. Smoker. Post-Operative Diagnosis: 1. 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 2. Diabetes mellitus. 3. s/p I&D left groin infection. 4. Hidradenitis. 5. Smoker. Surgery/Procedure Performed:: Surgical preparation left inguinal area and vulval area (involving genitocrural and mons pubis area) with incision and drainage and excisional debridement necrotizing diabetic abscess and partial vulvectomy including deep subcutaneous tissue (264 cm2). Description of Surgical Findings:: The patient is a 42 year old female with a history of diabetes mellitus was recently admitted with a left groin infection. It has been intermittent draining. She had been developing increasing redness, pain, and swelling. She was started on IV antibiotics with Vancomycin and Zosyn. Since starting the IV antibiotics the pressure pain has improved a little. She denied any fever. She states she had a left groin infection drained about a month ago, she thinks , at the [facility] office on [facility]. She had a right groin infection drained a couple of years ago. Her WBC has improved from 14.8 to 10.2 after being admitted. Her HgbA1c is high at 10.1. She had a CT Abdomen and Pelvis on 06/07/18 which showed an abnormal attenuation visible within the left lower quadrant abdominal wall presumably related to acute inflammation and infection. This probably corresponds to the area of drainage identified clinically. This is not clearly an abscess but may represent phlegmon. Normal osseous structures. No CT evidence of acute intra-abdominal disease. I was asked to evaluate this patient for surgical options for treatment. Today the patient underwent surgical preparation left inguinal area and vulval area (involving genitocrural and mons pubis area) with incision and drainage and excisional debridement necrotizing diabetic abscess and partial vulvectomy including deep subcutaneous tissue (264 cm2). Size of defect left inguinal area and vulval area - 22 x 12 x 4 cm. Estimated Blood Loss: 250 ml. Specimen's removed: 1. Diabetic abscess left inguinal and vulval area to Pathology and Microbiology. 2. MRSA Wound DNA by PCR. Drains: None. Type of Anesthesia:: General - Admit VTE Documentation VTE Present on Admission: No VTE Mechan Device Prophylaxis: SCD's VTE Pharm Prophylaxis ordered?: Yes
[2018-06-09 18:50] LABS: Bedside Glucose 189 mg/dL (70-110)
--- NOTE | 2018-06-09 19:36 | PCM.OPRPT ---
Report of Operation Date of Procedure: 06/09/18 Pre-Operative Diagnosis: 1. Diabetic abscess left inguinal area and vulval area (involving the genitocrural and pubic areas). 2. Diabetes mellitus. 3. s/p I&D left groin infection. 4. Hidradenitis. 5. Smoker. Post-Operative Diagnosis: 1. 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 2. Diabetes mellitus. 3. s/p I&D left groin infection. 4. Hidradenitis. 5. Smoker. Surgery/Procedure Performed:: Surgical preparation left inguinal area and vulval area (involving genitocrural and mons pubis area) with incision and drainage and excisional debridement necrotizing diabetic abscess and partial vulvectomy including deep subcutaneous tissue (264 cm2). Description of Surgical Findings:: The patient is a 42 year old female with a history of diabetes mellitus was recently admitted with a left groin infection. It has been intermittent draining. She had been developing increasing redness, pain, and swelling. She was started on IV antibiotics with Vancomycin and Zosyn. Since starting the IV antibiotics the pressure pain has improved a little. She denied any fever. She states she had a left groin infection drained about a month ago, she thinks, at the [facility] office on [facility]. She had a right groin infection drained a couple of years ago. Her WBC has improved from 14.8 to 10.2 after being admitted. Her HgbA1c is high at 10.1. She had a CT Abdomen and Pelvis on 06/07/18 which showed an abnormal attenuation visible within the left lower quadrant abdominal wall presumably related to acute inflammation and infection. This probably corresponds to the area of drainage identified clinically. This is not clearly an abscess but may represent phlegmon. Normal osseous structures. No CT evidence of acute intra-abdominal disease. I was asked to evaluate this patient for surgical options for treatment. Patient was informed of the risks and complications of the procedure including alternatives to surgery. These were discussed with the patient personally. Patient voices understanding and wishes to proceed. Encouraged patient to stop smoking as it may have deleterious effects on wound healing. Size of defect left inguinal area and vulval area - 22 x 12 x 4 cm. felt carbonizer: None Type of Anesthesia:: General Specimen's removed: 1. Diabetic abscess left inguinal and vulval area to Pathology and Microbiology. 2. MRSA Wound DNA by PCR. Drains: None. Estimated Blood Loss (mL): 250 ml. Description of Procedure: Patient was taken to OR in supine position and was placed under general anesthesia. Her abdominal panniculus was pulled out of the way and her left inguinal and vulval areas were prepped and draped in the usual fashion. Some pubic hair was shaved prior to prepping. Her legs were frog legged to get exposure. SCD's were placed for DVT prophylaxis. Perioperative antibiotics were given intravenously. Using a scalpel I proceeded with incision and drainage of the diabetic abscess. A lot of necrotic fat was seen in the subcutaneous tissue. The central aspect of the infected abscess was very firm and indurated. No gross pus was seen. However there was evidence of nonviable fat and an early necrotizing process. Dissection went down to the underlying fascia. The fascia was inflamed but appeared viable. The fat necrosis and nonviable tissue was sharply excised and debrided. Some of the tissue was sent to Microbiology for culture and the rest to Pathology for analysis to rule out carcinoma. A MRSA Wound DNA by PCR was also sent. The infection was extensive as it extended into the mons pubis area and the genitocrural area. It also extended from the inguinal area to the abdominal wall skin crease. The size of the defect after the incision and drainage and excisional debridement was 22 x 12 x 4 cm. Hemostasis was obtained with electrocautery. The wound was irrigated with saline. The wound was then packed with Mepitel nonadherent dressing followed by Kerlix gauze with Betadine followed by dry Kerlix gauze and ABD pads for a compression dressing. Patient tolerated the procedure well and was sent to PACU in satisfactory condition. She will be sent back upstairs for continued postop care. She will continue IV antibiotics. The VAC will be placed tomorrow. Encourage nutritional supplementation with protein to help the healing process. After discharge [facility]. Grafts/Implants Used: None. - Complications None. - Admit VTE Documentation VTE Present on Admission: No VTE Mechan Device Prophylaxis: SCD's VTE Pharm Prophylaxis ordered?: Yes Code Visit Surgery Charges CPT - 49415 ICD-10 - L02.214, M79.89, E11.9, Z86.14, F17.200 35993 N76.4, M79.89, E11.9, Z86.14, F17.200
[2018-06-09] MEDS: DULAGLUTIDE 1.5 MG/0.5 ML PEN.INJCTR 0.5 MG SQ (20:08)
[2018-06-09] MEDS: Insulin Lispro 100 UNIT/ML INSULN.PEN 35 UNIT SC (20:09)
[2018-06-09] MEDS: Gabapentin 400 MG Capsule PO (20:09)
[2018-06-09] MEDS: Lisinopril 20 MG Tablet PO (20:11)
[2018-06-09] MEDS: hydroCHLOROthiazide 25 MG Tablet PO (20:11)
[2018-06-09] MEDS: Furosemide 80 MG Tablet PO (20:11)
[2018-06-09 20:26] LABS: Bedside Glucose 204 mg/dL (70-110)
[2018-06-09 21:18] LABS: M R Staph aureus DNA By PCR Negative (Negative); Probe Check PASS; Specimen Processing Control PASS; Staph aureus DNA By PCR NEGATIVE (Negative)
[2018-06-09] MEDS: HYDROmorphone 1 MG/ML Syringe IV (23:36)
[2018-06-09 23:46] LABS: Bedside Glucose 301 mg/dL (70-110)
[2018-06-10] VITALS (10 sets, daily range): BP systolic 110–178; BP diastolic 54–105; PULSE 64–106; RESP 18; TEMP 36.2–36.9; O2SAT 84–99
--- NOTE | 2018-06-10 00:14 | NURSING ---
oxyrgen increased to 4L NC. sats up to 95 from 84.
--- NOTE | 2018-06-10 02:32 | NURSING ---
Spoke to Ryan in pharmacy regarding late [facility] last night d/t surgery. He says to wait to hang [facility] until after morning zosyn.
--- NOTE | 2018-06-10 03:30 | NURSING ---
Patient O2 sats at 83-85 on 4L. Increased to 5L. Call to CPS. Patient doing incentive spirometer at this time.
[2018-06-10] MEDS: Acetaminophen 325 MG Tablet 650 MG PO ×2 (03:55→15:54)
[2018-06-10] MEDS: oxyCODONE 5 MG Tablet 10 MG PO ×2 (03:56→15:54)
[2018-06-10] MEDS: Piperacil/Tazobactam 3.375 GM/50 ML ML IV (05:16)
[2018-06-10] MEDS: Heparin Injection (Vial) 5,000 UNIT/ML VIAL 5000 UNIT SC (05:18)
[2018-06-10 06:24] LABS: Hematocrit 36.2 % (37-47); Hemoglobin 11.6 g/dl (12.0-15.0); Mean Corpuscular Volume 96.8 fL (81-99); Mean Platelet Vol. 10.1 fl (6.2-12.0); Platelet Count 279 K/mm3 (150-450); RBC Distribution Width CV 14.5 % (11.6-14.6); RBC Distribution Width SD 48.3 fl (35.1-43.9); Red Blood Count 3.74 M/mm3 (4.2-5.4)
[2018-06-10 06:26] LABS: Scan Indicated on CBC? Y/N NO
[2018-06-10 06:28] LABS: Anion Gap 7 (5-15); BUN 8 mg/dL (7-18); BUN/Creat Ratio 11.4 RATIO (10-20); Chloride 101 mmol/L (98-107); EST Glomerular Filtration Rate 98 mL/min (>60); Est Glom Filt Rate - Afr Amer 119 mL/min (>60); Estimated Creatinine Clearance 96.13 ml/min; Glucose 204 mg/dL (74-106); Potassium 3.6 mmol/L (3.5-5.1); Sodium Level 138 mmol/L (136-145)
--- NOTE | 2018-06-10 06:41 | NURSING ---
Sats 83%. Patient woke up, IS used 5x up to 95%.
[2018-06-10] MEDS: 0.9% Normal Saline 1,000 ML 100 ML IV (08:10)
[2018-06-10] MEDS: HYDROmorphone 1 MG/ML Syringe IV ×2 (08:11→12:05)
[2018-06-10] MEDS: 0.9% NaCl Peripheral Flush Adult/Peds IV ×2 (08:11→12:05)
[2018-06-10] MEDS: Gabapentin 400 MG Capsule PO ×2 (08:18→12:24)
[2018-06-10] MEDS: Multivitamins,Ther W-Minerals Tablet 1 TABLET PO (08:18)
[2018-06-10] MEDS: Insulin Lispro 100 UNIT/ML INSULN.PEN 35 UNIT SC ×2 (08:18→12:23)
[2018-06-10] MEDS: Insulin Lispro 100 UNIT/ML INSULN.PEN SQ ×2 (08:19→12:23)
[2018-06-10] MEDS: Aspirin 81 MG TAB.CHEW PO (08:20)
--- NOTE | 2018-06-10 09:30 | CASEMGMT ---
LORENZO GARCÍA updated by wound nurse that patient will need HHC for wound vac and patient wishes to discharge today. LORENZO GARCÍA called [facility], [facility], [facility], [facility], [facility], and [facility] which all declined services either due to staff or not [facility]. LORENZO GARCÍA requested Anjelica Ribeiro, clinical support, to continue to send referrals for HHC. LORENZO GARCÍA provided list of already failed referral and list of in-network HHC companies. LORENZO GARCÍA will continue to follow this patient and plan for a safe discharge.
--- NOTE | 2018-06-10 09:40 | NURSING ---
wound photo: left groin
[2018-06-10] MEDS: Dicyclomine 10 MG Capsule 20 MG PO (10:18)
[2018-06-10] MEDS: Furosemide 80 MG Tablet PO (10:18)
[2018-06-10] MEDS: Pantoprazole Sodium 40 MG Tablet PO (10:18)
[2018-06-10] MEDS: Lisinopril 20 MG Tablet PO (10:18)
[2018-06-10] MEDS: hydroCHLOROthiazide 25 MG Tablet PO (10:18)
[2018-06-10 10:46] LABS: Bedside Glucose 211 mg/dL (70-110)
[2018-06-10 12:36] LABS: Bedside Glucose 223 mg/dL (70-110)
--- NOTE | 2018-06-10 12:44 | PCM.DC ---
- Discharge Diagnoses Current Active Problems: cellulitis of left groin You will use the following diet at home:: Calorie/Carbohydrate Controlled (specify 1200, 1400, etc) Your food should be the consistency of: Regular Discharge Activity: Return to Normal Activity Weight Bearing Status: Weight bearing as tolerated Call your doctor if your incision/area has: Continuous Slow Oozing, Sudden Increased Bleeding, Increased Pain/ Swelling, Increased Redness, Foul Smelling Discharge, Swelling at the incision site Call your doctor if you observe: Fever of 101 or Higher Cleanse incision/area with: Keep Dressing Clean & Dry Additional Instructions: follow up with wound care in one week. Wound vac applied. to be changed 3x weekly at 150mmHg suction. Allergies/Adverse Reactions: Allergies cyclobenzaprine HCl [From Flexeril] Allergy (Verified 06/07/18 01:43) Hives venlafaxine [From Effexor] Adverse Reaction (Severe, Verified 06/07/18 01:43) unknown Medications to take at Discharge Buspirone HCl [Buspar] 15 mg PO TID PRN 09/29/13 Lansoprazole [Prevacid] 25 mg PO DAILY 09/29/13 Lisinopril [Zestril] 20 mg PO DAILY 09/29/13 Hydrochlorothiazide [Hctz] 25 mg PO DAILY 02/02/17 Aspirin [Aspirin, Baby] 81 mg PO DAILY 03/26/17 Multivits,Ca,Minerals/Iron/FA [Women's Daily Formula Caplet] 1 ea PO DAILY 03/26/17 [place]-3 Fatty Acids [[place]-3] 1,000 mg PO DAILY 03/26/17 Gabapentin [Neurontin] 400 mg PO TID 05/29/17 Oxygen, Home [Home Oxygen] 2 - 3 lpm NASAL DAILY #1 unit 09/13/17 B12/Levomefolate Calcium/B-6 [Folbic Rf Tablet] 1 ea PO DAILY 10/07/17 Dicyclomine HCl [Bentyl] 20 mg PO DAILY 10/07/17 Insulin Aspart [Novolog Flexpen] 35 units SC TIDCM #0 10/08/17 Compression Socks, Medium [Futuro Restoring] 1 ea MC DAILY #1 ea 02/28/18 Furosemide [Lasix] 80 mg PO BID #10 tab 02/28/18 Ibuprofen 800 mg PO 4X/DAY PRN PRN 06/07/18 Dulaglutide [Trulicity] 0.5 ml SQ QWEEK MDD 0.5ml 06/08/18 Cefadroxil [Duracef] 1,000 mg PO BID 14 Days #56 cap 06/10/18 Doxycycline 100 mg PO BID #28 cap 06/10/18 Insulin Glargine [Lantus SoloStar Pen] 55 units SC BID #5 pen 06/10/18 The following prescriptions were given: Cefadroxil [Duracef] 1,000 mg PO BID 14 Days #56 cap Doxycycline 100 mg PO BID #28 cap Insulin Glargine [Lantus SoloStar Pen] 55 units SC BID #5 pen Primary Care Physician: Tino Oreilly MD [Primary Care Provider] - Test Results: Test results from this visit will be discussed in further detail at your follow-up appointment, if applicable. Please Follow Up With: Benjamin Garnica MD When: one week Proposed Discharge Date: 06/10/18
--- NOTE | 2018-06-10 12:50 | DCINST_ITS ---
- Discharge Diagnoses Current Active Problems: cellulitis of left groin You will use the following diet at home:: Calorie/Carbohydrate Controlled ( specify 1200, 1400, etc) Your food should be the consistency of: Regular Discharge Activity: Return to Normal Activity Weight Bearing Status: Weight bearing as tolerated Call your doctor if your incision/area has: Continuous Slow Oozing, Sudden Increased Bleeding, Increased Pain/ Swelling, Increased Redness, Foul Smelling Discharge, Swelling at the incision site Call your doctor if you observe: Fever of 101 or Higher Cleanse incision/area with: Keep Dressing Clean & Dry Additional Instructions: follow up with wound care in one week. Wound vac applied. to be changed 3x weekly at 150mmHg suction. Allergies/Adverse Reactions: Allergies cyclobenzaprine HCl [From Flexeril] Allergy (Verified 06/07/18 01:43) Hives venlafaxine [From Effexor] Adverse Reaction (Severe, Verified 06/07/18 01:43) unknown Medications to take at Discharge Buspirone HCl [Buspar] 15 mg PO TID PRN 09/29/13 Lansoprazole [Prevacid] 25 mg PO DAILY 09/29/13 Lisinopril [Zestril] 20 mg PO DAILY 09/29/13 Hydrochlorothiazide [Hctz] 25 mg PO DAILY 02/02/17 Aspirin [Aspirin, Baby] 81 mg PO DAILY 03/26/17 Multivits,Ca,Minerals/Iron/FA [Women's Daily Formula Caplet] 1 ea PO DAILY 03/26 [place]-3 Fatty Acids [[place]-3] 1,000 mg PO DAILY 03/26/17 Gabapentin [Neurontin] 400 mg PO TID 05/29/17 Oxygen, Home [Home Oxygen] 2 - 3 lpm NASAL DAILY #1 unit 09/13/17 B12/Levomefolate Calcium/B-6 [Folbic Rf Tablet] 1 ea PO DAILY 10/07/17 Dicyclomine HCl [Bentyl] 20 mg PO DAILY 10/07/17 Insulin Aspart [Novolog Flexpen] 35 units SC TIDCM #0 10/08/17 Compression Socks, Medium [Futuro Restoring] 1 ea MC DAILY #1 ea 02/28/18 Furosemide [Lasix] 80 mg PO BID #10 tab 02/28/18 Ibuprofen 800 mg PO 4X/DAY PRN PRN 06/07/18 Dulaglutide [Trulicity] 0.5 ml SQ QWEEK MDD 0.5ml 06/08/18 Cefadroxil [Duracef] 1,000 mg PO BID 14 Days #56 cap 06/10/18 Doxycycline 100 mg PO BID #28 cap 06/10/18 Insulin Glargine [Lantus SoloStar Pen] 55 units SC BID #5 pen 06/10/18 The following prescriptions were given: Cefadroxil [Duracef] 1,000 mg PO BID 14 Days #56 cap Doxycycline 100 mg PO BID #28 cap Insulin Glargine [Lantus SoloStar Pen] 55 units SC BID #5 pen Primary Care Physician: Tino Oreilly MD [Primary Care Provider] - Test Results: Test results from this visit will be discussed in further detail at your follow- up appointment, if applicable. Please Follow Up With: Benjamin Garnica MD When: one week Proposed Discharge Date: 06/10/18
--- NOTE | 2018-06-10 12:50 | PCM.DC.SUM ---
Discharge Date and Diagnosis Date of Admission: 06/07/18 Date of Discharge: 06/10/18 - Primary Discharge Diagnosis cellulitis of left groin s/p I&D - Secondary Discharge Diagnosis Chronic Problems (Last Reviewed 06/07/18 @ 06:39 by Reynaldo Rehman MD) Respiratory failure with hypoxia (Chronic) Hypertension (Chronic) 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 (Chronic) 23/17 cmH20 Anxiety (Chronic) History of MRSA infection (Chronic) Diabetes mellitus (Chronic) Morbid obesity (Chronic) Hyperlipidemia (Chronic) Tobacco abuse (Chronic) Hospital Course and Treatment Consultations 06/07/18 14:57 Consult: Onc/Wound/musculoskeletal physiotherapist Routine Comment: plastic surgery-Dr Garnica Operations: None, - - incision and drainage of left groin abscess Procedures: Wound vac placement Summary of Care Provided: The patient is a 42 year old F with a history of poorly controlled diabetes mellitus, hypertension, obstructive sleep apnea, morbid obesity, hyperlipidemia, and anxiety. She was admitted with a complaint of left groin swelling and drainage with assisted increasing redness and pain. Been going on for about a week prior to her admission. Admission, white cell count is elevated at 4.8 and wound cultures grew Strep agalactiae, Coagulase negative Staph and gram positive rods. Abdominopelvic CT showed hepatomegaly and liver which is approximately 24 cm in size. It also showed a left adrenal nodule of about 2.2 cm and abnormal attenuation in left lower quadrant abdominal wall not clearly visualized as an abscess. Patient was started on IV vancomycin and IV Zosyn. Plastic surgery was consulted and she had I&D done of the left groin abscess on 06/09/2018. A1c checked on admission was 10.1. Her Lantus was increased to 55 units twice daily from 50 units twice daily on admission. She remained stable and was discharged home on 06/10/2018 on Duricef thousand milligrams twice daily for 14 days and doxycycline 100 mg twice daily for 14 days. She is to follow-up with a PCP, and plastic surgery as well as wound care. Wound VAC is to be changed 3 times weekly at 1 50 mmHg. She is also to follow-up with her PCP for further workup of the left adrenal nodule picked up incidentally on CT. Patient also counseled about left adrenal nodule and need for follow up on outpatient basis. Patient seen and examined today. She has no complaints and felt well. She denies any fever or chills, any cough or chest pain, any shortness of breath, abdominal pain, any diarrhea vomiting. Review of systems otherwise negative. o/e: [] General: Alert, Oriented x3, Cooperative, No apparent distress HEENT: Atraumatic, PERRLA, EOMI, Normocephalic Oral: Moist Mucosa Neck: Supple, No JVD, Negative Carotid Bruits Lungs: Clear to auscultation, Normal air movement, No rhonchi, No wheeze, No rales Cardiovascular: Regular rate, Regular Rhythm, Normal S1, Normal S2, No murmurs Abdomen: Bowel Sounds Present, Soft, Non Tender, Non-Distended, No Hepato-splenomegaly. very obese abdomen. left groin dressing is clean and dry. Wound vac yet to be applied at time of review. Extremities: No clubbing, No cyanosis, No edema, Capillary Refill Less than 3 Seconds Skin: - - left groin abscess looks better; drainage has improved. Musculoskeletal: No Tenderness to Palpation of Joints or Extremities Lymphatic: No Cervical, Supraclavicular, or Inguinal Adenopathy Neurological: Cranial nerves II-XII grossly intact Psych/Mental Status: Normal Affect, Appropriate, Alert and oriented to time, place, person, mood and affect Plan as mentioned above. Please note, she has a left sided 2.2cm adrenal nodule picked up on abdominopelvic CT, and is to follow up on outpatient basis with her PCP for further workup of this. This note was generated with [employer] dictation software. It may contain incorrect words, spelling, and punctuation that were not noted in checking the note before signing. Discharge Diet: 1800 Calorie Control Diet Discharge Activity: Return to Normal Activity Weight Bearing Status: Weight bearing as tolerated Call your doctor if your incision/area has: Continuous Slow Oozing, Sudden Increased Bleeding, Increased Pain/ Swelling, Increased Redness, Foul Smelling Discharge, Swelling at the incision site Call your doctor if you observe: Fever of 101 or Higher Cleanse incision/area with: Keep Dressing Clean & Dry Home Medications: Medications to take at Discharge Buspirone HCl [Buspar] 15 mg PO TID PRN 09/29/13 Lansoprazole [Prevacid] 25 mg PO DAILY 09/29/13 Lisinopril [Zestril] 20 mg PO DAILY 09/29/13 Hydrochlorothiazide [Hctz] 25 mg PO DAILY 02/02/17 Aspirin [Aspirin, Baby] 81 mg PO DAILY 03/26/17 Multivits,Ca,Minerals/Iron/FA [Women's Daily Formula Caplet] 1 ea PO DAILY 03/26/17 [place]-3 Fatty Acids [[place]-3] 1,000 mg PO DAILY 03/26/17 Gabapentin [Neurontin] 400 mg PO TID 05/29/17 Oxygen, Home [Home Oxygen] 2 - 3 lpm NASAL DAILY #1 unit 09/13/17 B12/Levomefolate Calcium/B-6 [Folbic Rf Tablet] 1 ea PO DAILY 10/07/17 Dicyclomine HCl [Bentyl] 20 mg PO DAILY 10/07/17 Insulin Aspart [Novolog Flexpen] 35 units SC TIDCM #0 10/08/17 Compression Socks, Medium [Futuro Restoring] 1 ea MC DAILY #1 ea 02/28/18 Furosemide [Lasix] 80 mg PO BID #10 tab 02/28/18 Ibuprofen 800 mg PO 4X/DAY PRN PRN 06/07/18 Dulaglutide [Trulicity] 0.5 ml SQ QWEEK MDD 0.5ml 06/08/18 Cefadroxil [Duracef] 1,000 mg PO BID 14 Days #56 cap 06/10/18 Doxycycline 100 mg PO BID #28 cap 06/10/18 Insulin Glargine [Lantus SoloStar Pen] 55 units SC BID #5 pen 06/10/18 Following Prescrptions Were Given to Patient: Cefadroxil [Duracef] 1,000 mg PO BID 14 Days #56 cap Doxycycline 100 mg PO BID #28 cap Insulin Glargine [Lantus SoloStar Pen] 55 units SC BID #5 pen Primary Care Physician: Tino Oreilly MD [Primary Care Provider] - Please follow up with your Primary Care Physician in: one week Please Follow Up With: Benjamin Garnica MD When: one week Disposition: Home with Home Health Minutes spent on discharge:: 45 Patient Condition:: Good Medical Necessity - Tobacco Use Smoking Status: Current every day smoker Meaningful Use Info Meaningful Use Diagnoses (Choose all that apply): None applicable Code Visit Inpatient E&M: 01518 Disch Hosp
--- NOTE | 2018-06-10 12:53 | DS.PCM_ITS ---
Discharge Date and Diagnosis Date of Admission: 06/07/18 Date of Discharge: 06/10/18 - Primary Discharge Diagnosis cellulitis of left groin s/p I&D - Secondary Discharge Diagnosis Chronic Problems (Last Reviewed 06/07/18 @ 06:39 by Reynaldo Rehman MD) Respiratory failure with hypoxia (Chronic) Hypertension (Chronic) 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 (Chronic) 23/17 cmH20 Anxiety (Chronic) History of MRSA infection (Chronic) Diabetes mellitus (Chronic) Morbid obesity (Chronic) Hyperlipidemia (Chronic) Tobacco abuse (Chronic) Hospital Course and Treatment Consultations 06/07/18 14:57 Consult: Onc/Wound/family and consumer sciences teacher Routine Comment: plastic surgery-Dr Garnica Operations: None, - - incision and drainage of left groin abscess Procedures: Wound vac placement Summary of Care Provided: The patient is a 42 year old F with a history of poorly controlled diabetes mellitus, hypertension, obstructive sleep apnea, morbid obesity, hyperlipidemia , and anxiety. She was admitted with a complaint of left groin swelling and drainage with assisted increasing redness and pain. Been going on for about a week prior to her admission. Admission, white cell count is elevated at 4.8 and wound cultures grew Strep agalactiae, Coagulase negative Staph and gram positive rods. Abdominopelvic CT showed hepatomegaly and liver which is approximately 24 cm in size. It also showed a left adrenal nodule of about 2.2 cm and abnormal attenuation in left lower quadrant abdominal wall not clearly visualized as an abscess. Patient was started on IV vancomycin and IV Zosyn. Plastic surgery was consulted and she had I&D done of the left groin abscess on 06/09/2018. A1c checked on admission was 10.1. Her Lantus was increased to 55 units twice daily from 50 units twice daily on admission. She remained stable and was discharged home on 06/10/2018 on Duricef thousand milligrams twice daily for 14 days and doxycycline 100 mg twice daily for 14 days. She is to follow- up with a PCP, and plastic surgery as well as wound care. Wound VAC is to be changed 3 times weekly at 1 50 mmHg. She is also to follow-up with her PCP for further workup of the left adrenal nodule picked up incidentally on CT. Patient also counseled about left adrenal nodule and need for follow up on outpatient basis. Patient seen and examined today. She has no complaints and felt well. She denies any fever or chills, any cough or chest pain, any shortness of breath, abdominal pain, any diarrhea vomiting. Review of systems otherwise negative. o/e: [] General: Alert, Oriented x3, Cooperative, No apparent distress HEENT: Atraumatic, PERRLA, EOMI, Normocephalic Oral: Moist Mucosa Neck: Supple, No JVD, Negative Carotid Bruits Lungs: Clear to auscultation, Normal air movement, No rhonchi, No wheeze, No rales Cardiovascular: Regular rate, Regular Rhythm, Normal S1, Normal S2, No murmurs Abdomen: Bowel Sounds Present, Soft, Non Tender, Non-Distended, No Hepato- splenomegaly. very obese abdomen. left groin dressing is clean and dry. Wound vac yet to be applied at time of review. Extremities: No clubbing, No cyanosis, No edema, Capillary Refill Less than 3 Seconds Skin: - - left groin abscess looks better; drainage has improved. Musculoskeletal: No Tenderness to Palpation of Joints or Extremities Lymphatic: No Cervical, Supraclavicular, or Inguinal Adenopathy Neurological: Cranial nerves II-XII grossly intact Psych/Mental Status: Normal Affect, Appropriate, Alert and oriented to time, place, person, mood and affect Plan as mentioned above. Please note, she has a left sided 2.2cm adrenal nodule picked up on abdominopelvic CT, and is to follow up on outpatient basis with her PCP for further workup of this. This note was generated with [employer] dictation software. It may contain incorrect words, spelling, and punctuation that were not noted in checking the note before signing. Discharge Diet: 1800 Calorie Control Diet Discharge Activity: Return to Normal Activity Weight Bearing Status: Weight bearing as tolerated Call your doctor if your incision/area has: Continuous Slow Oozing, Sudden Increased Bleeding, Increased Pain/ Swelling, Increased Redness, Foul Smelling Discharge, Swelling at the incision site Call your doctor if you observe: Fever of 101 or Higher Cleanse incision/area with: Keep Dressing Clean & Dry Home Medications: Medications to take at Discharge Buspirone HCl [Buspar] 15 mg PO TID PRN 09/29/13 Lansoprazole [Prevacid] 25 mg PO DAILY 09/29/13 Lisinopril [Zestril] 20 mg PO DAILY 09/29/13 Hydrochlorothiazide [Hctz] 25 mg PO DAILY 02/02/17 Aspirin [Aspirin, Baby] 81 mg PO DAILY 03/26/17 Multivits,Ca,Minerals/Iron/FA [Women's Daily Formula Caplet] 1 ea PO DAILY 03/26 [place]-3 Fatty Acids [[place]-3] 1,000 mg PO DAILY 03/26/17 Gabapentin [Neurontin] 400 mg PO TID 05/29/17 Oxygen, Home [Home Oxygen] 2 - 3 lpm NASAL DAILY #1 unit 09/13/17 B12/Levomefolate Calcium/B-6 [Folbic Rf Tablet] 1 ea PO DAILY 10/07/17 Dicyclomine HCl [Bentyl] 20 mg PO DAILY 10/07/17 Insulin Aspart [Novolog Flexpen] 35 units SC TIDCM #0 10/08/17 Compression Socks, Medium [Futuro Restoring] 1 ea MC DAILY #1 ea 02/28/18 Furosemide [Lasix] 80 mg PO BID #10 tab 02/28/18 Ibuprofen 800 mg PO 4X/DAY PRN PRN 06/07/18 Dulaglutide [Trulicity] 0.5 ml SQ QWEEK MDD 0.5ml 06/08/18 Cefadroxil [Duracef] 1,000 mg PO BID 14 Days #56 cap 06/10/18 Doxycycline 100 mg PO BID #28 cap 06/10/18 Insulin Glargine [Lantus SoloStar Pen] 55 units SC BID #5 pen 06/10/18 Following Prescrptions Were Given to Patient: Cefadroxil [Duracef] 1,000 mg PO BID 14 Days #56 cap Doxycycline 100 mg PO BID #28 cap Insulin Glargine [Lantus SoloStar Pen] 55 units SC BID #5 pen Primary Care Physician: Tino Oreilly MD [Primary Care Provider] - Please follow up with your Primary Care Physician in: one week Please Follow Up With: Benjamin Garnica MD When: one week Disposition: Home with Home Health Minutes spent on discharge:: 45 Patient Condition:: Good Medical Necessity - Tobacco Use Smoking Status: Current every day smoker Meaningful Use Info Meaningful Use Diagnoses (Choose all that apply): None applicable Code Visit Inpatient E&M: 34746 Disch Hosp
--- NOTE | 2018-06-10 13:54 | CASEMGMT ---
1230 - Call placed to [facility]. Able to accept pt for home health services for wound vac changes -- per Brandy. OK for start of care to be Friday06/12/18. Faxed face sheet, H&P, HH order, wound vac dressing change order to Brandy at [phone] - Per RN-CM, D/C orders in and RN-CM will fax to [facility]. Call placed to Diane at [facility]. Informed Diane that D/C info was being faxed. Diane confirmed that start of care is 06/12/18 as wound vac is due to be changed that date. Miranda Ribeiro LPN Clinical Support
--- NOTE | 2018-06-10 16:13 | PCM.PN.SRG ---
Subjective: Postop #1 Patient is resting comfortably. VAC applied today. She is anxious to go home. - Physical Exam General: Alert, Oriented x3 HEENT: PERRLA, EOMI Oral: Moist Mucosa Neck: Supple Abdomen: Soft, Non-Distended Skin: Ulcer/ Wound - wound is stable. No bleeding seen. VAC applied today. Neurological: Cranial nerves II-XII grossly intact Psych/Mental Status: Normal Affect, Appropriate Vital Signs Temp Pulse Resp BP Pulse Ox 98.5 F 94 18 178/105 H 90 06/10/18 15:55 06/10/18 15:55 06/10/18 15:55 06/10/18 15:55 06/10/18 15:55 Oxygen Flow Rate (L/min) 3 Oxygen Delivery Method Room Air Weight: 354 lb 4.525 oz Body Mass Index (BMI) 58.9 Finger Stick Blood Glucose 189 Intake and Output for Last 24 Hours 06/08/18 06/09/18 06/10/18 23:59 23:59 23:59 Intake Total 7726 / 7726 4541 / 4541 2589 / 2589 Output Total 1350 / 1350 Balance 7726 / 7726 3191 / 3191 2589 / 2589 Microbiology Past 72 Hours 06/07/18 20:20 Gram Stain - Final Wound Abcess - Groin Wound Culture - Preliminary Gram positive gil Gram Positive Cocci Anaerobic Culture - Preliminary Checking for anaerobes, further studies to follow. 06/09/18 Unknown Gram Stain - Final Tissue - Other Wound Culture - Preliminary No growth-Final to follow Laboratory Tests Past 24 Hrs 06/09/18 06/09/18 06/10/18 08:12 Unknown 05:14 WBC 13.0 H RBC 3.74 L Hgb 11.6 L Hct 36.2 L MCV 96.8 MCH 31.0 MCHC 32.0 RDW 14.5 RDW Differential 48.3 H Plt Count 279 MPV 10.1 Sodium Potassium Chloride Carbon Dioxide Anion Gap BUN Creatinine Estim Creat Clear Calc Est GFR (MDRD) Af Amer Est GFR (MDRD) Non-Af BUN/Creatinine Ratio Glucose Calcium Serum , Qual NEGATIVE S.aureus Protein A PCR NEGATIVE MRSA (PCR) Negative 06/10/18 05:14 WBC RBC Hgb Hct MCV MCH MCHC RDW RDW Differential Plt Count MPV Sodium 138 Potassium 3.6 Chloride 101 Carbon Dioxide 30.0 Anion Gap 7 BUN 8 Creatinine 0.70 Estim Creat Clear Calc 96.13 Est GFR (MDRD) Af Amer 119 Est GFR (MDRD) Non-Af 98 BUN/Creatinine Ratio 11.4 Glucose 204 H Calcium 8.0 L Serum , Qual S.aureus Protein A PCR MRSA (PCR) POC Glucose 06/10/18 06/10/18 06/09/18 12:17 08:09 22:59 POC Glucose 223 H 211 H 301 H 06/09/18 06/09/18 20:06 18:46 POC Glucose 204 H 189 H Medical Necessity - Tobacco Use Smoking Status: Current every day smoker Assessment/Plan All Active Problems (Last Reviewed 06/07/18 @ 06:39 by Reynaldo Rehman MD) Necrotizing soft tissue infection (Acute) Abscess of vulva (Acute) Soft tissue abscess of inguinal region (Acute) Hyperglycemia (Acute) Cellulitis (Ruled-out) c section (Resolved) H/O arthroscopic knee surgery (Resolved) History of cholecystectomy (Resolved) Abscess (Acute) NSTEMI (non-ST elevated myocardial infarction) (Acute) Hyperglycemia due to type 2 diabetes mellitus (Acute) 1. 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 2. Diabetes mellitus. 3. s/p I&D left groin infection. 4. Hidradenitis. 5. Smoker. 6. History of MRSA. 7. s/p surgical preparation left inguinal area and vulval area (involving genitocrural and mons pubis area) with incision and drainage and excisional debridement necrotizing diabetic abscess and partial vulvectomy including deep subcutaneous tissue (264 cm2). Wound is stable. No bleeding noted. VAC applied. To be changed three times per week at 150 mmHg continuous suction. Operative culture shows Gram positive cocci. Will send home on Doxycycline and Cefadroxil. A positive culture may necessitate antibiotic modification. Encourage nutritional supplementation with protein to help the healing process. Post discharge, would followup at the Wound Center on 06/22/18. If there is a plateau in the healing process, can proceed with delayed closure with skin grafting. If skin grafting is needed, her HgbA1c needs to be less than 8. At present it is 10.1. She will followup with her PCP to help improve her diabetes and lower her HgbA1c. Encouraged patient to stop smoking as it may have deleterious effects on wound healing.
--- NOTE | 2018-06-10 20:37 | OP.PCM_ITS ---
Report of Operation Date of Procedure: 06/09/18 Pre-Operative Diagnosis: 1. Diabetic abscess left inguinal area and vulval area (involving the genitocrural and pubic areas). 2. Diabetes mellitus. 3. s/p I&D left groin infection. 4. Hidradenitis. 5. Smoker. Post-Operative Diagnosis: 1. 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 2. Diabetes mellitus. 3. s/p I&D left groin infection. 4. Hidradenitis. 5. Smoker. Surgery/Procedure Performed:: Surgical preparation left inguinal area and vulval area (involving genitocrural and mons pubis area) with incision and drainage and excisional debridement necrotizing diabetic abscess and partial vulvectomy including deep subcutaneous tissue (264 cm2). Description of Surgical Findings:: The patient is a 42 year old female with a history of diabetes mellitus was recently admitted with a left groin infection. It has been intermittent draining. She had been developing increasing redness, pain, and swelling. She was started on IV antibiotics with Vancomycin and Zosyn. Since starting the IV antibiotics the pressure pain has improved a little. She denied any fever. She states she had a left groin infection drained about a month ago, she thinks , at the [facility] office on [facility]. She had a right groin infection drained a couple of years ago. Her WBC has improved from 14.8 to 10.2 after being admitted. Her HgbA1c is high at 10.1. She had a CT Abdomen and Pelvis on 06/07/18 which showed an abnormal attenuation visible within the left lower quadrant abdominal wall presumably related to acute inflammation and infection. This probably corresponds to the area of drainage identified clinically. This is not clearly an abscess but may represent phlegmon. Normal osseous structures. No CT evidence of acute intra-abdominal disease. I was asked to evaluate this patient for surgical options for treatment. Patient was informed of the risks and complications of the procedure including alternatives to surgery. These were discussed with the patient personally. Patient voices understanding and wishes to proceed. Encouraged patient to stop smoking as it may have deleterious effects on wound healing. Size of defect left inguinal area and vulval area - 22 x 12 x 4 cm. 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 Diabetic abscess left inguinal and vulval area to Pathology and Microbiology. 2. MRSA Wound DNA by PCR. Drains: None. Estimated Blood Loss (mL): 250 ml. Description of Procedure: Patient was taken to OR in supine position and was placed under general anesthesia. Her abdominal panniculus was pulled out of the way and her left inguinal and vulval areas were prepped and draped in the usual fashion. Some pubic hair was shaved prior to prepping. Her legs were frog legged to get exposure. SCD's were placed for DVT prophylaxis. Perioperative antibiotics were given intravenously. Using a scalpel I proceeded with incision and drainage of the diabetic abscess. A lot of necrotic fat was seen in the subcutaneous tissue. The central aspect of the infected abscess was very firm and indurated. No gross pus was seen. However there was evidence of nonviable fat and an early necrotizing process. Dissection went down to the underlying fascia. The fascia was inflamed but appeared viable. The fat necrosis and nonviable tissue was sharply excised and debrided. Some of the tissue was sent to Microbiology for culture and the rest to Pathology for analysis to rule out carcinoma. A MRSA Wound DNA by PCR was also sent. The infection was extensive as it extended into the mons pubis area and the genitocrural area. It also extended from the inguinal area to the abdominal wall skin crease. The size of the defect after the incision and drainage and excisional debridement was 22 x 12 x 4 cm. Hemostasis was obtained with electrocautery. The wound was irrigated with saline. The wound was then packed with Mepitel nonadherent dressing followed by Kerlix gauze with Betadine followed by dry Kerlix gauze and ABD pads for a compression dressing. Patient tolerated the procedure well and was sent to PACU in satisfactory condition. She will be sent back upstairs for continued postop care. She will continue IV antibiotics. The VAC will be placed tomorrow. Encourage nutritional supplementation with protein to help the healing process. After discharge she will followup at the Wound Center. Grafts/Implants Used: None. - Complications None. - Admit VTE Documentation VTE Present on Admission: No VTE Mechan Device Prophylaxis: SCD's VTE Pharm Prophylaxis ordered?: Yes Code Visit Surgery Charges CPT - 45057 ICD-10 - L02.214, M79.89, E11.9, Z86.14, F17.200 38477 N76.4, M79.89, E11.9, Z86.14, F17.200
--- NOTE | 2018-06-12 16:20 | CASEMGMT ---
LORENZO GARCÍA Discharge Follow-up Phone Call: KATIANA: 14 Strata: 4 Call Date: 06/12/18 Discharge Date: 06/10/18 Time of Call: 1620 Duration: 3 min Admitting Diagnosis: Cellulitis LORENZO GARCÍA completed follow-up phone call after recent hospitaliztion. Patient state that she is doing well. Home health was at her house today to change dressing. She call [employer] regarding possible shower chair and grab bars and stated she would follow-up with PCP for scripts. Patient stated that she had no questions regarding discharge instructions. Patient had to pay for pain medication as prior authorization could take up to 72 hours. Patient has follow-up appt on 06/22/18 in wound center.
[2018-06-15 14:49] LABS: Barbiturates Negative ng/mL (Cutoff=300); Cannabinoid Negative ng/mL (Cutoff=50); Cocaine Negative ng/mL (Cutoff=300); Phencyclidine Negative ng/mL (Cutoff=25)
[2018-06-16 10:50] LABS: Amphetamines Negative ng/mL (Cutoff=1000)
[2018-06-16 10:51] LABS: Opiates Negative (Cutoff=300); Opiates See Final Results ng/mL (Cutoff=300)
== END 2018-06-10 16:15 | disposition home health service (06) | DRG 269 ==
LOC: ED 02:56 → MS3 06:09
PROVIDERS: Surgery; Admitting Provider Internal Medicine; Emergency Provider Emergency Medicine; Family Provider Family Medicine; PCP Family Medicine; Visit Provider Student in an Organized Health Care Education/Training Program
PROC: 0YB60ZZ Excision of Left Inguinal Region, Open Approach (ICD-10-PCS; principal; 2018-06-09 13:30)
DX: L02.214 Cutaneous abscess of groin (principal); J96.11 Chronic respiratory failure with hypoxia; E11.65 Type 2 diabetes mellitus with hyperglycemia; N76.4 Abscess of vulva; G47.33 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 (adult) (pediatric); I10 Essential (primary) hypertension; E66.01 Morbid (severe) obesity due to excess calories; Z68.43 Body mass index [BMI] 50.0-59.9, adult; Z99.81 Dependence on supplemental oxygen; Z79.4 Long term (current) use of insulin; Z79.899 Other long term (current) drug therapy; F17.200 Nicotine dependence, unspecified, uncomplicated; F41.9 Anxiety disorder, unspecified; E78.5 Hyperlipidemia, unspecified; L73.2 Hidradenitis suppurativa
CPT/HCPCS: 36415; 71045; 74177; 80048; 80202; 80307; 82947; 82962; 83036; 84703; 85025; 85027; 87040; 87070; 87075; 87077; 87102; 87106; 87186; 87205; 87206; 87640; 88304; 88312; 93005; 99282; 99406; J7030; J7040; J7050; Q9967; A4216; J2405

== ENCOUNTER 2018-06-22 09:38 | Outpatient (RCR) | payer MEDICAID, SELFPAY ==
[2018-06-22 10:37] VITALS: BP 130/76; PULSE 94; RESP 16; TEMP 36.5; BMI 49.9
--- NOTE | 2018-06-22 19:14 | PCM.WC.PN ---
Type of Wound Date of Service: 06/22/18 Chief Complaint: Open surgical wound left inguinal and vulval area. History of Wound: Surgery 06/09/18 - Surgical preparation left inguinal area and vulval area (involving genitocrural and mons pubis area) with incision and drainage and excisional debridement necrotizing diabetic abscess and partial vulvectomy including deep subcutaneous tissue (264 cm2). Wound care - VAC. Having trouble maintaining a seal. Operative culture - Streptococcus agalactiae, Prevotella bivia, and E. coli. She was dischaged home on Doxycylcine and Cefadroxil. Encourage nutritional supplementation with protein to help the healing process. Her HgbA1c in the hospital was 10.1. Today the patient denies any fever. Her appetite is good. Progress of Wound: Improved. - Physical Exam Vital Signs Temp Pulse Resp BP 97.7 F L 94 16 130/76 H 06/22/18 10:37 06/22/18 10:37 06/22/18 10:37 06/22/18 10:37 Wound Measurements and Assessment WC - Nurse 1 - General Ulcer Measurement Start: 06/22/18 10:35 Freq: Status: Active Protocol: Activity Type Activity Date Activity User E-Sign Co-Sign Detail Recorded Client Recorded Date Recorded By Document 06/22/18 10:37 [facility] [id number] 06/22/18 10:58 [facility] 06/22/18 10:37 Wound Center Nurse 1 [Ulcer Assessment] #2- LT GROIN -Combined with other wound No -Current Size (cm) - Length 7.5 -Current Size (cm) - Width 24.9 -Current Size (cm) - Depth 7.8 -Total Square Cm 186.75 -Date of Last Picture (Recall this 06/22/18 field) -Photo Taken Yes -Epithelialization None Present -Tunneling No -Undermining/Tunneling No -Circular Undermining No -Exudate Amt Large (67-100%) -Exudate Type Serosanguineous -Wound Margin Distinct, Outline Attached -Granulation Amt Large (67-100%) -Granulation Quality [place] -Slough/Fibrin Yes -Necrosis Amt Small (1-33%) -Necrotic Tissue Type Adherent Slough -Texture (Gill-wound Skin Appearance) Scarring -Moisture (Gill-wound Skin Appearance Assessed ) -Color (Gill-wound Skin Appearance) Erythema -Temperature (Gill-wound Skin No Abnormality Appearance) (Pt Warm) -Tenderness on Palpation (Gill-wound Yes Skin Appearance) -Ulcer Cleansing Wound Cleanser -Foul Odor after Cleansing No -Anesthetic Used 4% Lidocaine Solution JANEY - Nurse 2 - General Ulcer CM Notes Start: 06/22/18 10:35 Freq: Status: Active Protocol: Activity Type Activity Date Activity User E-Sign Co-Sign Detail Recorded Client Recorded Date Recorded By Document 06/22/18 11:25 [id number] 06/22/18 11:29 06/22/18 11:25 Wound Center Nurse 2 [Procedure/Treatment] -Time 11:26 -Correct Patient Yes -Correct Side, Site, Position Yes -Correct Procedure Yes -Procedure Performed Yes -Type of Procedure Debridement -Clinical Debridement Subcutaneous -Post Debridement Size (cm) - Length 7.5 -Post Debridement Size (cm) - Width 25 -Post Debridement Size (cm) - Depth 7.8 -Total Square Cm 187.5 -Wound/Ulcer Outcome Not Healed -Ulcer Cleansing Rinsed/ Irrigated with Saline -Foul Odor after Cleansing No -Bioengineered Tissue No -Bleeding Controlled with Pressure -Treatment Response Procedure Tolerated Well [See Physician Procedure note for Specifics] Pain Scale: 0-10 Numeric [Pain] -Is Patient Pain Free? Yes Debridement Note Post-Debridement Measurements/Treatment JANEY - Nurse 2 - General Ulcer CM Notes Start: 06/22/18 10:35 Freq: Status: Active Protocol: Activity Type Activity Date Activity User E-Sign Co-Sign Detail Recorded Client Recorded Date Recorded By Document 06/22/18 11:25 [id number] [id number] 06/22/18 11:29 06/22/18 11:25 Wound Center Nurse 2 #2- LT GROIN -Time 11:26 -Correct Patient Yes -Correct Side, Site, Position Yes -Correct Procedure Yes -Procedure Performed Yes -Type of Procedure Debridement -Clinical Debridement Subcutaneous -Post Debridement Size (cm) - Length 7.5 -Post Debridement Size (cm) - Width 25 -Post Debridement Size (cm) - Depth 7.8 -Total Square Cm 187.5 -Wound/Ulcer Outcome Not Healed -Ulcer Cleansing Rinsed/ Irrigated with Saline -Foul Odor after Cleansing No -Bioengineered Tissue No -Bleeding Controlled with Pressure -Treatment Response Procedure Tolerated Well Pain Scale: 0-10 Numeric Is Patient Pain Free? Yes Wound debrided: #2 Left inguinal and vulval area. Laterality: Left Wound Grade/Stage: 2. Type of Debridement: Excisional debridement Anesthesia Used: 4% Lidocaine Solution Depth: Down to and including healthy tissue, in the subcutaneous layer Percentage of wound debrided: 100 Instrument Used: 7mm curette Tissue Removed: subcutaneous tissue. Severity: Fat Layer Exposed Amount of bleeding with debridement: Mild Bleeding Controlled with: Pressure Patient tolerated procedure well Assessment/Plan Assessment: 1. 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 2. Diabetes mellitus. 3. Hidradenitis. 4. Smoker. 5. History of MRSA. 6. s/p surgical preparation left inguinal area and vulval area (involving genitocrural and mons pubis area) with incision and drainage and excisional debridement necrotizing diabetic abscess and partial vulvectomy including deep subcutaneous tissue (264 cm2). Plan: Having trouble maintaining a VAC seal. Will begin Silver dressing changes daily. Operative culture showed Streptococcus agalactiae, Prevotella bivia, and E. coli. She was sent home on Doxycycline and Cefadroxil. Will stop the Doxycycline and add Augmentin. Encourage nutritional supplementation with protein to help the healing process. Renewed her Percocet for pain (50 tabs). Renewed her Valium for spasm (30 tabs). If there is a plateau in the healing process, can proceed with delayed closure with skin grafting. If skin grafting is needed, her HgbA1c needs to be less than 8. At present it is 10.1. She will followup with her PCP to help improve her diabetes and lower her HgbA1c. Encouraged patient to stop smoking as it may have deleterious effects on wound healing. Followup 2 weeks.
--- NOTE | 2018-06-23 17:14 | PN.PCM_ITS ---
Type of Wound Date of Service: 06/22/18 Chief Complaint: Open surgical wound left inguinal and vulval area. History of Wound: Surgery 06/09/18 - Surgical preparation left inguinal area and vulval area (involving genitocrural and mons pubis area) with incision and drainage and excisional debridement necrotizing diabetic abscess and partial vulvectomy including deep subcutaneous tissue (264 cm2). Wound care - VAC. Having trouble maintaining a seal. Operative culture - Streptococcus agalactiae , Prevotella bivia, and E. coli. She was dischaged home on Doxycylcine and Cefadroxil. Encourage nutritional supplementation with protein to help the healing process. Her HgbA1c in the hospital was 10.1. Today the patient denies any fever. Her appetite is good. Progress of Wound: Improved. - Physical Exam Vital Signs Temp Pulse Resp BP 97.7 F L 94 16 130/76 H 06/22/18 10:37 06/22/18 10:37 06/22/18 10:37 06/22/18 10:37 Wound Measurements and Assessment WC - Nurse 1 - General Ulcer Measurement Start: 06/22/18 10:35 Freq: Status: Active Protocol: Activity Type Activity Date Activity User E-Sign Co-Sign Detail Recorded Client Recorded Date Recorded By Document 06/22/18 10:37 [facility] [id number] 06/22/18 10:58 [facility] 06/22/18 10:37 Wound Center Nurse 1 [Ulcer Assessment] #2- LT GROIN -Combined with other wound No -Current Size (cm) - Length 7.5 -Current Size (cm) - Width 24.9 -Current Size (cm) - Depth 7.8 -Total Square Cm 186.75 -Date of Last Picture (Recall this 06/22/18 field) -Photo Taken Yes -Epithelialization None Present -Tunneling No -Undermining/Tunneling No -Circular Undermining No -Exudate Amt Large (67-100%) -Exudate Type Serosanguineous -Wound Margin Distinct, Outline Attached -Granulation Amt Large (67-100%) -Granulation Quality [place] -Slough/Fibrin Yes -Necrosis Amt Small (1-33%) -Necrotic Tissue Type Adherent Slough -Texture (Gill-wound Skin Appearance) Scarring -Moisture (Gill-wound Skin Appearance Assessed ) -Color (Gill-wound Skin Appearance) Erythema -Temperature (Gill-wound Skin No Abnormality Appearance) (Pt Warm) -Tenderness on Palpation (Gill-wound Yes Skin Appearance) -Ulcer Cleansing Wound Cleanser -Foul Odor after Cleansing No -Anesthetic Used 4% Lidocaine Solution JANEY - Nurse 2 - General Ulcer CM Notes Start: 06/22/18 10:35 Freq: Status: Active Protocol: Activity Type Activity Date Activity User E-Sign Co-Sign Detail Recorded Client Recorded Date Recorded By Document 06/22/18 11:25 [id number] 06/22/18 11:29 06/22/18 11:25 Wound Center Nurse 2 [Procedure/Treatment] -Time 11:26 -Correct Patient Yes -Correct Side, Site, Position Yes -Correct Procedure Yes -Procedure Performed Yes -Type of Procedure Debridement -Clinical Debridement Subcutaneous -Post Debridement Size (cm) - Length 7.5 -Post Debridement Size (cm) - Width 25 -Post Debridement Size (cm) - Depth 7.8 -Total Square Cm 187.5 -Wound/Ulcer Outcome Not Healed -Ulcer Cleansing Rinsed/ Irrigated with Saline -Foul Odor after Cleansing No -Bioengineered Tissue No -Bleeding Controlled with Pressure -Treatment Response Procedure Tolerated Well [See Physician Procedure note for Specifics] Pain Scale: 0-10 Numeric [Pain] -Is Patient Pain Free? Yes Debridement Note Post-Debridement Measurements/Treatment JANEY - Nurse 2 - General Ulcer CM Notes Start: 06/22/18 10:35 Freq: Status: Active Protocol: Activity Type Activity Date Activity User E-Sign Co-Sign Detail Recorded Client Recorded Date Recorded By Document 06/22/18 11:25 [id number] [id number] 06/22/18 11:29 06/22/18 11:25 Wound Center Nurse 2 #2- LT GROIN -Time 11:26 -Correct Patient Yes -Correct Side, Site, Position Yes -Correct Procedure Yes -Procedure Performed Yes -Type of Procedure Debridement -Clinical Debridement Subcutaneous -Post Debridement Size (cm) - Length 7.5 -Post Debridement Size (cm) - Width 25 -Post Debridement Size (cm) - Depth 7.8 -Total Square Cm 187.5 -Wound/Ulcer Outcome Not Healed -Ulcer Cleansing Rinsed/ Irrigated with Saline -Foul Odor after Cleansing No -Bioengineered Tissue No -Bleeding Controlled with Pressure -Treatment Response Procedure Tolerated Well Pain Scale: 0-10 Numeric Is Patient Pain Free? Yes Wound debrided: #2 Left inguinal and vulval area. Laterality: Left Wound Grade/Stage: 2. Type of Debridement: Excisional debridement Anesthesia Used: 4% Lidocaine Solution Depth: Down to and including healthy tissue, in the subcutaneous layer Percentage of wound debrided: 100 Instrument Used: 7mm curette Tissue Removed: subcutaneous tissue. Severity: Fat Layer Exposed Amount of bleeding with debridement: Mild Bleeding Controlled with: Pressure Patient tolerated procedure well Assessment/Plan Assessment: 1. 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 2. Diabetes mellitus. 3. Hidradenitis. 4. Smoker. 5. History of MRSA. 6. s/p surgical preparation left inguinal area and vulval area (involving genitocrural and mons pubis area) with incision and drainage and excisional debridement necrotizing diabetic abscess and partial vulvectomy including deep subcutaneous tissue (264 cm2). Plan: Having trouble maintaining a VAC seal. Will begin Silver dressing changes daily. Operative culture showed Streptococcus agalactiae, Prevotella bivia, and E. coli. She was sent home on Doxycycline and Cefadroxil. Will stop the Doxycycline and add Augmentin. Encourage nutritional supplementation with protein to help the healing process. Renewed her Percocet for pain (50 tabs). Renewed her Valium for spasm (30 tabs). If there is a plateau in the healing process, can proceed with delayed closure with skin grafting. If skin grafting is needed, her HgbA1c needs to be less than 8. At present it is 10.1. She will followup with her PCP to help improve her diabetes and lower her HgbA1c. Encouraged patient to stop smoking as it may have deleterious effects on wound healing. Followup 2 weeks.
== END 2018-06-30 23:59 ==
LOC: WC 09:38
PROVIDERS: Family Provider Family Medicine; PCP Family Medicine; Visit Provider Surgery
DX: L73.2 Hidradenitis suppurativa (principal); Z86.14 Personal history of Methicillin resistant Staphylococcus aureus infection; E11.69 Type 2 diabetes mellitus with other specified complication; L02.214 Cutaneous abscess of groin
CPT/HCPCS: 11042; 11045; 99213; G0463

== ENCOUNTER 2018-07-20 10:15 | Outpatient (RCR) | payer MEDICAID, SELFPAY ==
[2018-07-01 01:31] VITALS: BP 130/76; PULSE 94; RESP 16; TEMP 36.5
[2018-07-06 09:34] VITALS: BP 139/65; PULSE 105; RESP 18; TEMP 36
--- NOTE | 2018-07-06 17:18 | PN.PCM_ITS ---
Type of Wound Date of Service: 07/06/18 Chief Complaint: Open surgical wound left inguinal and vulval area. History of Wound: Surgery 06/09/18 - Surgical preparation left inguinal area and vulval area (involving genitocrural and mons pubis area) with incision and drainage and excisional debridement necrotizing diabetic abscess and partial vulvectomy including deep subcutaneous tissue (264 cm2). Wound care - Silver dressing. Operative culture - Streptococcus agalactiae, Prevotella bivia, and E. coli. She was dischaged home on Doxycylcine and Cefadroxil. The Doxycycline was changed to Augmentin. She is done with the Cefadroxil. Encourage nutritional supplementation with protein to help the healing process. Her HgbA1c in the hospital was 10.1. Today the patient denies any fever. Her appetite is good. Progress of Wound: Improved. - Physical Exam Vital Signs Temp Pulse Resp BP 96.8 F L 105 H 18 139/65 H 07/06/18 09:34 07/06/18 09:34 07/06/18 09:34 07/06/18 09:34 Wound Measurements and Assessment WC - Nurse 1 - General Ulcer Measurement Start: 07/06/18 09:31 Freq: Status: Active Protocol: Activity Type Activity Date Activity User E-Sign Co-Sign Detail Recorded Client Recorded Date Recorded By Document 07/06/18 09:34 [id number] 07/06/18 09:49 07/06/18 09:34 Wound Center Nurse 1 [Ulcer Assessment] #2- LT GROIN -Combined with other wound No -Current Size (cm) - Length 22.0 -Current Size (cm) - Width 6.0 -Current Size (cm) - Depth 0.3 -Total Square Cm 132.00 -Photo Taken No -Epithelialization Small 1-33% -Tunneling No -Undermining/Tunneling No -Circular Undermining No -Exudate Amt Large (67-100%) -Exudate Type Serosanguineous -Wound Margin Distinct, Outline Attached -Granulation Amt Large (67-100%) -Granulation Quality [place] Red -Slough/Fibrin Yes -Necrosis Amt None Present (0 %) -Necrotic Tissue Type Adherent Slough -Structure Exposed None/Limited to Skin Breakdown -Texture (Gill-wound Skin Appearance) Assessed Scarring -Moisture (Gill-wound Skin Appearance No Abnormality ) Assessed -Color (Gill-wound Skin Appearance) No Abnormality Assessed -Temperature (Gill-wound Skin No Abnormality Appearance) (Pt Warm) -Tenderness on Palpation (Gill-wound Yes Skin Appearance) -Ulcer Cleansing Wound Cleanser -Foul Odor after Cleansing No -Anesthetic Used 4% Lidocaine Solution 5% Lidocaine Gel [Edema Assessment] -Lower Limb Edema Present NA - Nurse 2 - General Ulcer CM Notes Start: 07/06/18 09:31 Freq: Status: Active Protocol: Activity Type Activity Date Activity User E-Sign Co-Sign Detail Recorded Client Recorded Date Recorded By Document 07/06/18 10:24 [id number] 07/06/18 10:25 07/06/18 10:24 Wound Center Nurse 2 [Procedure/Treatment] #2- LT GROIN -Time 10:24 -Correct Patient Yes -Correct Side, Site, Position Yes -Correct Procedure Yes -Procedure Performed Yes -Type of Procedure Debridement -Clinical Debridement Subcutaneous -Post Debridement Size (cm) - Length 22 -Post Debridement Size (cm) - Width 6 -Post Debridement Size (cm) - Depth 0.4 -Total Square Cm 132 -Wound/Ulcer Outcome Not Healed -Ulcer Cleansing Rinsed/ Irrigated with Saline -Foul Odor after Cleansing No -Bioengineered Tissue No -Bleeding Controlled with Pressure -Treatment Response Procedure Tolerated Well [See Physician Procedure note for Specifics] Pain Scale: 0-10 Numeric [Pain] -Is Patient Pain Free? Yes Debridement Note Post-Debridement Measurements/Treatment - Nurse 2 - General Ulcer CM Notes Start: 07/06/18 09:31 Freq: Status: Active Protocol: Activity Type Activity Date Activity User E-Sign Co-Sign Detail Recorded Client Recorded Date Recorded By Document 07/06/18 10:24 [id number] 07/06/18 10:25 07/06/18 10:24 Wound Center Nurse 2 #2- LT GROIN -Time 10:24 -Correct Patient Yes -Correct Side, Site, Position Yes -Correct Procedure Yes -Procedure Performed Yes -Type of Procedure Debridement -Clinical Debridement Subcutaneous -Post Debridement Size (cm) - Length 22 -Post Debridement Size (cm) - Width 6 -Post Debridement Size (cm) - Depth 0.4 -Total Square Cm 132 -Wound/Ulcer Outcome Not Healed -Ulcer Cleansing Rinsed/ Irrigated with Saline -Foul Odor after Cleansing No -Bioengineered Tissue No -Bleeding Controlled with Pressure -Treatment Response Procedure Tolerated Well Pain Scale: 0-10 Numeric Is Patient Pain Free? Yes Wound debrided: #2 Left inguinal and vulval area. Laterality: Left Wound Grade/Stage: 2. Type of Debridement: Excisional debridement Anesthesia Used: 4% Lidocaine Solution Depth: Down to and including healthy tissue, in the subcutaneous layer Percentage of wound debrided: 100 Instrument Used: 7mm curette Tissue Removed: subcutaneous tissue. Severity: Fat Layer Exposed Amount of bleeding with debridement: Mild Bleeding Controlled with: Pressure Patient tolerated procedure well Assessment/Plan Assessment: t: 1. 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 2. Diabetes mellitus. 3. Hidradenitis. 4. Smoker. 5. History of MRSA. 6. s/p surgical preparation left inguinal area and vulval area (involving genitocrural and mons pubis area) with incision and drainage and excisional debridement necrotizing diabetic abscess and partial vulvectomy including deep subcutaneous tissue (264 cm2). Plan: Continue Silver dressing changes daily. Operative culture showed Streptococcus agalactiae, Prevotella bivia, and E. coli. She was sent home on Doxycycline and Cefadroxil. We stopped the Doxycycline and added Augmentin. She has finished the Cefadroxil. Will continue the Augmentin. Encourage nutritional supplementation with protein to help the healing process. Renewed her Percocet for pain (40 tabs). If there is a plateau in the healing process, can proceed with delayed closure with skin grafting. If skin grafting is needed , her HgbA1c needs to be less than 8. At present it is 10.1. She will followup with her PCP to help improve her diabetes and lower her HgbA1c. Encouraged patient to stop smoking as it may have deleterious effects on wound healing. Followup 2 weeks.
[2018-07-20 10:47] VITALS: BP 155/87; PULSE 100; RESP 16; TEMP 36.5
--- NOTE | 2018-07-20 22:50 | PCM.WC.PN ---
Type of Wound Date of Service: 07/20/18 Chief Complaint: Open surgical wound left inguinal and vulval area. History of Wound: Surgery 06/09/18 - Surgical preparation left inguinal area and vulval area (involving genitocrural and mons pubis area) with incision and drainage and excisional debridement necrotizing diabetic abscess and partial vulvectomy including deep subcutaneous tissue (264 cm2). Wound care - Silver dressing. Operative culture - Streptococcus agalactiae, Prevotella bivia, and E. coli. She was dischaged home on Doxycylcine and Cefadroxil. The Doxycycline was changed to Augmentin. She is done with the Cefadroxil. Encourage nutritional supplementation with protein to help the healing process. Her HgbA1c in the hospital was 10.1. Today the patient denies any fever. Her appetite is good. Progress of Wound: Improved. - Physical Exam Vital Signs Temp Pulse Resp BP 97.7 F L 100 16 155/87 H 07/20/18 10:47 07/20/18 10:47 07/20/18 10:47 07/20/18 10:47 Wound Measurements and Assessment WC - Nurse 1 - General Ulcer Measurement Start: 07/06/18 09:31 Freq: Status: Active Protocol: Activity Type Activity Date Activity User E-Sign Co-Sign Detail Recorded Client Recorded Date Recorded By Document 07/20/18 10:47 [facility] [id number] 07/20/18 10:58 [facility] 07/20/18 10:47 Wound Center Nurse 1 [Ulcer Assessment] #2- LT GROIN -Combined with other wound No -Current Size (cm) - Length 3.7 -Current Size (cm) - Width 18.6 -Current Size (cm) - Depth 4.3 -Total Square Cm 68.82 -Date of Last Picture (Recall this 07/20/18 field) -Photo Taken Yes -Epithelialization Small 1-33% -Tunneling No -Undermining/Tunneling No -Circular Undermining No -Exudate Amt Large (67-100%) -Exudate Type Serous -Wound Margin Distinct, Outline Attached -Granulation Amt Large (67-100%) -Granulation Quality Pale [place] -Slough/Fibrin Yes -Necrosis Amt Small (1-33%) -Necrotic Tissue Type Adherent Slough -Texture (Gill-wound Skin Appearance) Scarring -Moisture (Gill-wound Skin Appearance Assessed ) -Color (Gill-wound Skin Appearance) Assessed -Temperature (Gill-wound Skin No Abnormality Appearance) (Pt Warm) -Tenderness on Palpation (Gill-wound Yes Skin Appearance) -Ulcer Cleansing Wound Cleanser -Foul Odor after Cleansing No -Anesthetic Used 4% Lidocaine Solution - Nurse 2 - General Ulcer CM Notes Start: 07/06/18 09:31 Freq: Status: Active Protocol: Activity Type Activity Date Activity User E-Sign Co-Sign Detail Recorded Client Recorded Date Recorded By Document 07/20/18 11:34 [id number] 07/20/18 11:35 07/20/18 11:34 Wound Center Nurse 2 [Procedure/Treatment] -Time 11:34 -Correct Patient Yes -Correct Side, Site, Position Yes -Correct Procedure Yes -Procedure Performed Yes -Type of Procedure Debridement -Clinical Debridement Subcutaneous -Post Debridement Size (cm) - Length 3.8 -Post Debridement Size (cm) - Width 18.6 -Post Debridement Size (cm) - Depth 4.3 -Total Square Cm 70.68 -Wound/Ulcer Outcome Not Healed -Ulcer Cleansing Rinsed/ Irrigated with Saline -Foul Odor after Cleansing No -Bioengineered Tissue No -Bleeding Controlled with Pressure -Treatment Response Procedure Tolerated Well [See Physician Procedure note for Specifics] Pain Scale: 0-10 Numeric [Pain] -Is Patient Pain Free? Yes Debridement Note Post-Debridement Measurements/Treatment - Nurse 2 - General Ulcer CM Notes Start: 07/06/18 09:31 Freq: Status: Active Protocol: Activity Type Activity Date Activity User E-Sign Co-Sign Detail Recorded Client Recorded Date Recorded By Document 07/06/18 10:24 [id number] 07/06/18 10:25 Document 07/20/18 11:34 [id number] 07/20/18 11:35 07/06/18 07/20/18 10:24 11:34 Wound Center Nurse 2 #2- LT GROIN -Time 10:24 11:34 -Correct Patient Yes Yes -Correct Side, Site, Position Yes Yes -Correct Procedure Yes Yes -Procedure Performed Yes Yes -Type of Procedure Debridement Debridement -Clinical Debridement Subcutaneous Subcutaneous -Post Debridement Size (cm) - Length 22 3.8 -Post Debridement Size (cm) - Width 6 18.6 -Post Debridement Size (cm) - Depth 0.4 4.3 -Total Square Cm 132 70.68 -Wound/Ulcer Outcome Not Healed Not Healed -Ulcer Cleansing Rinsed/ Rinsed/ Irrigated with Irrigated with Saline Saline -Foul Odor after Cleansing No No -Bioengineered Tissue No No -Bleeding Controlled with Pressure Pressure -Treatment Response Procedure Procedure Tolerated Well Tolerated Well Pain Scale: 0-10 Numeric Is Patient Pain Free? Yes Yes Wound debrided: #2 Left inguinal and vulval area. Laterality: Left Wound Grade/Stage: 2. Type of Debridement: Excisional debridement Anesthesia Used: 4% Lidocaine Solution Depth: Down to and including healthy tissue, in the subcutaneous layer Percentage of wound debrided: 100 Instrument Used: 7mm curette Tissue Removed: subcutaneous tissue. Severity: Fat Layer Exposed Amount of bleeding with debridement: Mild Bleeding Controlled with: Pressure Patient tolerated procedure well Assessment/Plan Assessment: 1. 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 2. Diabetes mellitus. 3. Hidradenitis. 4. Smoker. 5. History of MRSA. 6. s/p surgical preparation left inguinal area and vulval area (involving genitocrural and mons pubis area) with incision and drainage and excisional debridement necrotizing diabetic abscess and partial vulvectomy including deep subcutaneous tissue (264 cm2). Plan: Continue Silver dressing changes daily. Operative culture showed Streptococcus agalactiae, Prevotella bivia, and E. coli. She was sent home on Doxycycline and Cefadroxil. We stopped the Doxycycline and added Augmentin. She has finished the Cefadroxil. Will continue the Augmentin. Encourage nutritional supplementation with protein to help the healing process. Renewed her Percocet for pain (30 tabs). If there is a plateau in the healing process, can proceed with delayed closure with skin grafting. If skin grafting is needed, her HgbA1c needs to be less than 8. At present it is 10.1. She will followup with her PCP to help improve her diabetes and lower her HgbA1c. Encouraged patient to stop smoking as it may have deleterious effects on wound healing. Followup 3 weeks.
== END 2018-07-31 23:59 ==
LOC: WC 10:15
PROVIDERS: Family Provider Family Medicine; PCP Family Medicine; Visit Provider Surgery
DX: L73.2 Hidradenitis suppurativa (principal); Z86.14 Personal history of Methicillin resistant Staphylococcus aureus infection; E11.69 Type 2 diabetes mellitus with other specified complication; L02.214 Cutaneous abscess of groin
CPT/HCPCS: 11042; 11045

== ENCOUNTER 2018-07-28 01:03 | Emergency (ER) | payer MEDICAID, SELFPAY ==
[2018-07-28 01:04] VITALS: BP 109/54; PULSE 97; RESP 24; TEMP 37.1; O2SAT 92; BMI 61.2
--- NOTE | 2018-07-28 01:21 | ED.VISSUMM ---
- ER Visit Summary Date of Service: 07/28/18 Chief Complaint: [] Chest discomfort and dizziness History of Present Illness: The patient is a 43 F [] patient stated this evening she felt fuzzy in her head and some chest tightness at rest. Centrally located. Current severity is mild. She has some mild dyspnea this evening. She does have morbid obesity and wears oxygen at night for obstructive sleep apnea. She was not wearing her oxygen this evening. She has some tingling in her legs bilateral which is not uncommon with her with leg neuropathy. She has been treated for a leg of groin abscess she is on amoxicillin and it is healing. She had a wound VAC and this is been going on for several months. She said this is not an acute problem. She stated she had a heart cath 6 months ago showed no blockages per patient. She did have a non-STEMI secondary to demand ischemia from a respiratory illness. Recent echo showed EF of 65%. Physical Examination: [] Vital signs reviewed General: Well-nourished well-developed Head: Normocephalic atraumatic Eyes: Pupils equal round and reactive to light extraocular movements intact ENT: TMs clear no hemotympanum no trauma Neck: Nontender full range of motion Cardiovascular: Regular rate rhythm no murmurs normal S1-S2 Respiratory: No distress clear to auscultation bilaterally chest nontender Abdomen: Soft nontender nondistended normal bowel sounds no masses Back: Nontender no CVA tenderness Extremities: Nontender active range of motion ?4 extremities no trauma Neuro alert oriented cranial nerves II through XII intact normal strength sensation reflexes Test Results: [] Emergency Department Course and Treatment: [] KG shows sinus rhythm at 102 with no ischemia or arrhythmia. Given oral aspirin and a dose of morphine. Chest x-ray and lab work obtained. Chest x-ray shows nothing acute. Lab work shows a creatinine of 1.3 up from 0.7. The patient is on 80 mg of Lasix twice a day. White count is 14.7 which is nonspecific up from 13. Troponin negative. Patient did feel better after treatment. I think she likely over diuresed herself. She will cut her Lasix in half and have her electrolytes rechecked in 5 days. I do not feel this is cardiac related. I think she is overly dehydrated her heart cath was reviewed and showed no acute findings. I do not think she had a PE or dissection. Treatment Plan: [] Disposition: [] Impression: [] Acute renal insufficiency secondary to overdiuresis Chest pressure nonspecific This note was generated with GetNotes dictation software. It may contain incorrect words, spelling, and punctuation that were not noted in review of the chart prior to signing ED Disposition - Plan for ED Patient: Chief Complaint: Dizziness Referrals: Tino Oreilly MD [Primary Care Provider] -
[2018-07-28 01:23] VITALS: O2SAT 92
[2018-07-28] MEDS: Aspirin 81 MG TAB.CHEW 324 MG PO (01:32)
[2018-07-28] MEDS: Morphine 4 MG/ML Syringe 2 MG IV (01:33)
[2018-07-28 01:35] VITALS: BP 105/55; PULSE 92; RESP 14; O2SAT 92
[2018-07-28] MEDS: Morphine 2 MG/ML Syringe IV (01:46)
[2018-07-28 01:54] LABS: Absolute Lymphocyte Count 4.06 X10^3/ul (0.83-4.51); Absolute Neutrophil Count 9.5 X10^3/uL (2.0-7.7); Basophil# 0.08 X10^3/uL; Basophil% 0.5 % (0-1); Eosinophil# 0.33 X10^3/uL; Eosinophils% 2.3 % (0-5); Hematocrit 41.5 % (37-47); Hemoglobin 13.1 g/dl (12.0-15.0); Lymphocyte # 4.06 X10^3/ul (4.0); Lymphocyte % 27.7 % (19-41); Mean Corp Hgb Conc 31.6 g/gl (32-36); Mean Corpuscular Hgb 31.5 pg (27.0-32.0); Mean Corpuscular Volume 99.8 fL (81-99); Mean Platelet Vol. 10.3 fl (6.2-12.0); Monocyte# 0.69 X10^3/uL; Monocyte% 4.7 % (0-10); Neutrophil # 9.47 X10^3/uL (2.7-7.7); Neutrophil % 64.6 % (47-70); Platelet Count 288 K/mm3 (150-450); RBC Distribution Width CV 15.6 % (11.6-14.6); RBC Distribution Width SD 55.9 fl (35.1-43.9); Red Blood Count 4.16 M/mm3 (4.2-5.4); White Blood Count 14.7 K/mm3 (4.4-11.0)
[2018-07-28 01:55] LABS: Differential Indicated SCAN CRITERIA MET; POSITIVE COUNT NO; POSITIVE DIFFERENTIAL NO; POSITIVE MORPHOLOGY YES
[2018-07-28 02:03] LABS: Anion Gap 11 (5-15); BUN 26 mg/dL (7-18); BUN/Creat Ratio 19.1 RATIO (10-20); Calcium,Total 8.2 mg/dL (8.5-10.1); Chloride 98 mmol/L (98-107); Creatinine, Serum 1.36 mg/dL (0.55-1.02); EST Glomerular Filtration Rate 46 mL/min (>60); Est Glom Filt Rate - Afr Amer 55 mL/min (>60); Estimated Creatinine Clearance 48.98 ml/min; Glucose 222 mg/dL (74-106); Potassium 4.6 mmol/L (3.5-5.1); Sodium Level 135 mmol/L (136-145)
--- NOTE | 2018-07-28 02:32 | ED.DEP ---
ED Disposition - Plan for ED Patient: Disposition: Home or Assisted Living Chief Complaint: Dizziness Instructions: Dehydration, ED Chest Pain NonCardiac Referrals: Tino Oreilly MD [Primary Care Provider] -
[2018-07-28 02:42] VITALS: BP 92/41; PULSE 89; RESP 17; O2SAT 96
== END 2018-07-28 02:43 | disposition home or self-care (01) ==
PROVIDERS: Emergency Provider Emergency Medicine; Family Provider Family Medicine; PCP Family Medicine
DX: R07.89 Other chest pain (principal); N28.9 Disorder of kidney and ureter, unspecified; R42 Dizziness and giddiness; E86.0 Dehydration; R20.2 Paresthesia of skin; E11.40 Type 2 diabetes mellitus with diabetic neuropathy, unspecified; E11.65 Type 2 diabetes mellitus with hyperglycemia; I10 Essential (primary) hypertension; G47.33 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 (adult) (pediatric); E66.01 Morbid (severe) obesity due to excess calories; Z72.0 Tobacco use; I25.2 Old myocardial infarction; Z79.82 Long term (current) use of aspirin; Z79.4 Long term (current) use of insulin; Z99.81 Dependence on supplemental oxygen
CPT/HCPCS: 36415; 71046; 80048; 80053; 82306; 84443; 84484; 84681; 85025; 93005; 96374; 99285; A4216

== ENCOUNTER → 2018-07-28 11:54 | Outpatient (CLI) | payer MEDICAID, SELFPAY ==
[2018-07-28 12:39] LABS: Absolute Lymphocyte Count 2.76 X10^3/ul (0.83-4.51); Absolute Neutrophil Count 9.9 X10^3/uL (2.0-7.7); Basophil# 0.06 X10^3/uL; Basophil% 0.4 % (0-1); Eosinophil# 0.24 X10^3/uL; Eosinophils% 1.8 % (0-5); Hematocrit 40.9 % (37-47); Hemoglobin 13.1 g/dl (12.0-15.0); Lymphocyte # 2.76 X10^3/ul (4.0); Lymphocyte % 20.7 % (19-41); Mean Corpuscular Volume 99.8 fL (81-99); Mean Platelet Vol. 9.9 fl (6.2-12.0); Monocyte# 0.35 X10^3/uL; Monocyte% 2.6 % (0-10); Neutrophil % 74.2 % (47-70); Platelet Count 264 K/mm3 (150-450); RBC Distribution Width CV 15.4 % (11.6-14.6); RBC Distribution Width SD 55.7 fl (35.1-43.9); White Blood Count 13.4 K/mm3 (4.4-11.0)
[2018-07-28 12:40] LABS: POSITIVE COUNT NO; POSITIVE DIFFERENTIAL NO; POSITIVE MORPHOLOGY NO
[2018-07-28 13:15] LABS: ALB/GLOB Ratio 0.8 RATIO (0.9-2.4); AST(SGOT) 17 U/L (15-37); Alanine Aminotransfer ALT/SGPT 25 U/L (13-56); Albumin, Serum 3.1 g/dL (3.2-5.0); Alkaline Phosphatase 71 U/L (45-117); Anion Gap 11 (5-15); BUN 21 mg/dL (7-18); BUN/Creat Ratio 22.4 RATIO (10-20); Calcium,Total 8.3 mg/dL (8.5-10.1); Chloride 98 mmol/L (98-107); Creatinine, Serum 0.94 mg/dL (0.55-1.02); EST Glomerular Filtration Rate 70 mL/min (>60); Est Glom Filt Rate - Afr Amer 85 mL/min (>60); Globulin 3.9 g/dL (2.2-4.2); Glucose 222 mg/dL (74-106); Potassium 4.1 mmol/L (3.5-5.1); Sodium Level 138 mmol/L (136-145); Thyroid Stim Hormone (TSH) 2.08 uIU/mL (0.358-3.74)
[2018-07-29 13:34] LABS: Vitamin D,25 Hydroxy 19.1 ng/mL (29.95-100.01)
== END ==
PROVIDERS: Family Provider Family Medicine; PCP Family Medicine; Visit Provider Internal Medicine Endocrinology, Diabetes & Metabolism
DX: E11.40 Type 2 diabetes mellitus with diabetic neuropathy, unspecified (principal); E11.65 Type 2 diabetes mellitus with hyperglycemia
CPT/HCPCS: 36415; 80053; 82306; 84443; 84681; 85025

== ENCOUNTER → 2018-07-30 16:01 | Outpatient (CLI) | payer MEDICAID, SELFPAY ==
[2018-07-30 18:19] LABS: 24HR. Urine Creatinine 2.16 g/24 HR (0.70-1.90)
[2018-08-05 12:09] LABS: Cortisol, Urinary Free 4 ug/L (Undefined)
[2018-08-05 13:35] LABS: Cortisol, Free 24Ur 12 ug/24 hr (0-50)
== END ==
PROVIDERS: Family Provider Family Medicine; PCP Family Medicine; Visit Provider Internal Medicine Endocrinology, Diabetes & Metabolism
DX: E11.40 Type 2 diabetes mellitus with diabetic neuropathy, unspecified (principal); E11.65 Type 2 diabetes mellitus with hyperglycemia
CPT/HCPCS: 81050; 82530; 82570

== ENCOUNTER 2018-08-23 22:23 | Emergency (ER) | payer MEDICAID, SELFPAY ==
[2018-08-23 22:24] VITALS: BP 145/84; PULSE 121; RESP 20; TEMP 36.3; O2SAT 94; BMI 55.7
--- NOTE | 2018-08-23 22:56 | EKG12_ITS ---
Test Reason : PALPATATIONS Blood Pressure : / mmHG Vent. Rate : 112 BPM Atrial Rate : 112 BPM P-R Int : 130 ms QRS Dur : 082 ms QT Int : 338 ms P-R-T Axes : 043 -02 060 degrees QTc Int : 461 ms Sinus tachycardia Otherwise normal ECG Confirmed by HASMUKH LORA, LILIANA ([id number]), desk editor ANNELIESE YOUNG ([id number]) on 08/26/2018 9:01:08 AM Referred By: Shreya Mccray Confirmed By:LILIANA NOE MD
--- NOTE | 2018-08-23 22:58 | RAD_ITS ---
STUDY: X-RAY CHEST REASON FOR EXAM: Female, 43 years old. PALPITATIONS TECHNIQUE: Single AP portable view of the chest. COMPARISON: None. FINDINGS: The lungs are clear and expanded. There is no demonstrated pleural abnormality. Normal size heart. Normal mediastinum and evi. Normal visualized pulmonary arteries. Normal visualized aortic arch and descending thoracic aorta. Normal visualized thoracic spine. Normal visualized ribs, clavicles, and shoulders. There is no demonstrated abnormality of the visualized soft tissue structures of the upper abdomen. RAD/Chest 1 View (Portable) IMPRESSION: Normal x-ray examination of the chest. Electronically Signed: Patti Jensen MD at 23:51 EDT Tel , Service support ,
[2018-08-23] MEDS: Aspirin 81 MG TAB.CHEW 324 MG PO (23:13)
[2018-08-23] MEDS: 0.9% Normal Saline 1,000 ML 150 ML IV (23:13)
[2018-08-23 23:56] LABS: Absolute Lymphocyte Count 2.82 X10^3/ul (0.83-4.51); Basophil# 0.06 X10^3/uL; Basophil% 0.4 % (0-1); Eosinophil# 0.22 X10^3/uL; Eosinophils% 1.3 % (0-5); Hematocrit 44.3 % (37-47); Hemoglobin 14.4 g/dl (12.0-15.0); Lymphocyte # 2.82 X10^3/ul (4.0); Mean Corp Hgb Conc 32.5 g/gl (32-36); Mean Corpuscular Hgb 31.4 pg (27.0-32.0); Mean Corpuscular Volume 96.5 fL (81-99); Mean Platelet Vol. 10.3 fl (6.2-12.0); Monocyte% 2.4 % (0-10); Neutrophil # 13.01 X10^3/uL (2.7-7.7); Neutrophil % 78.7 % (47-70); Platelet Count 277 K/mm3 (150-450); RBC Distribution Width CV 14.8 % (11.6-14.6); Red Blood Count 4.59 M/mm3 (4.2-5.4); White Blood Count 16.5 K/mm3 (4.4-11.0)
[2018-08-23 23:59] LABS: POSITIVE COUNT NO; POSITIVE DIFFERENTIAL NO; POSITIVE MORPHOLOGY NO
[2018-08-24] LABS: D-Dimer Quantitative (DVT/PE) 0.38 FEU/ug/m (0.27-0.49)
[2018-08-24 00:01] LABS: Anion Gap 8 (5-15); BUN 17 mg/dL (7-18); BUN/Creat Ratio 18.6 RATIO (10-20); Calcium,Total 8.9 mg/dL (8.5-10.1); Chloride 96 mmol/L (98-107); Creatinine, Serum 0.91 mg/dL (0.55-1.02); EST Glomerular Filtration Rate 72 mL/min (>60); Est Glom Filt Rate - Afr Amer 87 mL/min (>60); Estimated Creatinine Clearance 73.21 ml/min; Glucose 400 mg/dL (74-106); Potassium 3.7 mmol/L (3.5-5.1); Sodium Level 133 mmol/L (136-145)
--- NOTE | 2018-08-24 00:15 | ED.VISSUMM ---
- ER Visit Summary Date of Service: 08/24/18 Chief Complaint: Heart racing History of Present Illness: The patient is a 43 F who states that her heart is racing. Started an hour ago. She states her heart rate was 166. This started after she took her insulin. She states that she did have a chest pain that was sharp but now feels heavy. She does have a history of anxiety and panic attacks. This does not happen before when she has taken her medications this happen before to her in general. She is a diabetic. She does smoke. She was also that she had a heart attack but that her doctors told her that it was not necessarily a heart attack. Physical Examination: Vital signs reviewed. HEENT exam unremarkable. Heart is tachycardic and regular rhythm without murmurs. Lungs are clear to auscultation. Abdomen is soft and nontender. Extremities reveal no edema. Skin exam normal. Neurologic exam normal. Test Results: EKG is sinus tachycardia with a rate of 112. No ST changes. Chest x-ray reveals no acute findings. White blood cell count 16.5. Sodium 133, chloride 96. Glucose 400. Troponin and d-dimer is normal Emergency Department Course and Treatment: The patient's glucose is elevated but she took her nightly doses of insulin before she came therefore I do not want to administer any more inferior of lowering her blood glucose too much. Her troponin and d-dimer are negative. I feel that this is likely more anxiety related. I do not feel she requires any further testing. She feels much better. She will be discharged home to continue her home medications and will monitor her blood glucose Treatment Plan: [] Disposition: Discharge Impression: Palpitations, hyperglycemia This note was generated with [employer] dictation software. It may contain incorrect words, spelling, and punctuation that were not noted in review of the chart prior to signing ED Disposition - Plan for ED Patient: Chief Complaint: Palpitations Referrals: Tino Oreilly MD [Primary Care Provider] -
--- NOTE | 2018-08-24 00:18 | ED.DCSUM_ITS ---
- ER Visit Summary Date of Service: 08/24/18 Chief Complaint: Heart racing History of Present Illness: The patient is a 43 F who states that her heart is racing. Started an hour ago. She states her heart rate was 166. This started after she took her insulin. She states that she did have a chest pain that was sharp but now feels heavy. She does have a history of anxiety and panic attacks. This does not happen before when she has taken her medications this happen before to her in general. She is a diabetic. She does smoke. She was also that she had a heart attack but that her doctors told her that it was not necessarily a heart attack. Physical Examination: Vital signs reviewed. HEENT exam unremarkable. Heart is tachycardic and regular rhythm without murmurs. Lungs are clear to auscultation. Abdomen is soft and nontender. Extremities reveal no edema. Skin exam normal. Neurologic exam normal. Test Results: EKG is sinus tachycardia with a rate of 112. No ST changes. Chest x-ray reveals no acute findings. White blood cell count 16.5. Sodium 133 , chloride 96. Glucose 400. Troponin and d-dimer is normal Emergency Department Course and Treatment: The patient's glucose is elevated but she took her nightly doses of insulin before she came therefore I do not want to administer any more inferior of lowering her blood glucose too much. Her troponin and d-dimer are negative. I feel that this is likely more anxiety related. I do not feel she requires any further testing. She feels much better. She will be discharged home to continue her home medications and will monitor her blood glucose Treatment Plan: [] Disposition: Discharge Impression: Palpitations, hyperglycemia This note was generated with [employer] dictation software. It may contain incorrect words, spelling, and punctuation that were not noted in review of the chart prior to signing ED Disposition - Plan for ED Patient: Chief Complaint: Palpitations Referrals: Tino Oreilly MD [Primary Care Provider] -
--- NOTE | 2018-08-24 00:18 | ED.DEP ---
ED Disposition - Plan for ED Patient: Disposition: Home or Assisted Living Chief Complaint: Palpitations Instructions: ED Palpitations Referrals: Tino Oreilly MD [Primary Care Provider] -
[2018-08-24] MEDS: LORazepam 1 MG Tablet PO (00:27)
[2018-08-24 00:34] VITALS: PULSE 108; RESP 15; O2SAT 93
== END 2018-08-24 00:35 | disposition home or self-care (01) ==
PROVIDERS: Emergency Provider Emergency Medicine; Family Provider Family Medicine; PCP Family Medicine
DX: R00.2 Palpitations (principal); R07.9 Chest pain, unspecified; R00.0 Tachycardia, unspecified; R06.00 Dyspnea, unspecified; E11.65 Type 2 diabetes mellitus with hyperglycemia; I10 Essential (primary) hypertension; F41.9 Anxiety disorder, unspecified; F17.200 Nicotine dependence, unspecified, uncomplicated; Z79.82 Long term (current) use of aspirin; Z79.4 Long term (current) use of insulin; Z79.899 Other long term (current) drug therapy; Z99.81 Dependence on supplemental oxygen
CPT/HCPCS: 71045; 80048; 84484; 85025; 85379; 93005; 99284

== ENCOUNTER 2018-08-25 13:00 | Outpatient (RCR) | payer MEDICAID, SELFPAY ==
[2018-08-01 01:32] VITALS: BP 155/87; PULSE 100; RESP 16; TEMP 36.5
[2018-08-18 13:29] VITALS: BP 152/80; PULSE 94; RESP 18; TEMP 36.6
--- NOTE | 2018-08-20 10:08 | PCM.WC.PN ---
(1) Non-healing open wound of left groin Status: Acute Code(s): S31.104A - Unspecified open wound of abdominal wall, left lower quadrant without penetration into peritoneal cavity, initial encounter (2) Hidradenitis Status: Acute Code(s): L73.2 - Hidradenitis suppurativa (3) Diabetes mellitus Status: Chronic Qualifiers: Code(s): E11.9 - Type 2 diabetes mellitus without complications (4) Morbid obesity Status: Chronic Code(s): E66.01 - Morbid (severe) obesity due to excess calories (5) Tobacco abuse Status: Chronic Code(s): Z72.0 - Tobacco use (6) History of MRSA infection Status: Chronic Code(s): Z86.14 - Personal history of Methicillin resistant Staphylococcus aureus infection Type of Wound Date of Service: 08/18/18 Chief Complaint: Non-healing wound left inguinal and vulval area. History of Wound: Surgery 06/09/18 - Surgical preparation left inguinal area and vulval area (involving genitocrural and mons pubis area) with incision and drainage and excisional debridement necrotizing diabetic abscess and partial vulvectomy including deep subcutaneous tissue (264 cm2). Wound care - VAC. Having trouble maintaing a seal. Operative culture - Streptococcus agalactiae, Pevotella bivia, and E. coli. She was discharged home on Doxycyline and Cefadroxil. Encourage nutritional supplementation with protein to help the healing process. Her HgbA1c in the hospital was 10.1. Today the fever denies and fever. States she is eating well. Progress of Wound: Wound is improving. - Physical Exam Vital Signs Temp Pulse Resp BP 97.8 F 94 18 152/80 H 08/18/18 13:29 08/18/18 13:29 08/18/18 13:29 08/18/18 13:29 General: Alert, Oriented x3, Cooperative HEENT: Atraumatic, Normocephalic Cardiovascular: Regular rate Abdomen: Obese Wound Measurements and Assessment WC - Nurse 1 - General Ulcer Measurement Start: 08/18/18 13:29 Freq: Status: Active Protocol: Activity Type Activity Date Activity User E-Sign Co-Sign Detail Recorded Client Recorded Date Recorded By Document 08/18/18 13:29 [email or web address] [id number] 08/18/18 13:38 08/18/18 13:29 Wound Center Nurse 1 [Ulcer Assessment] #2- LT GROIN -Combined with other wound No -Current Size (cm) - Length 10.8 -Current Size (cm) - Width 1.4 -Current Size (cm) - Depth 0.1 -Total Square Cm 15.12 -Photo Taken Yes -Epithelialization Medium 34-66% -Tunneling No -Undermining/Tunneling No -Circular Undermining No -Exudate Amt Medium (34-66%) -Exudate Type Serosanguineous -Wound Margin Flat & Intact -Granulation Amt Large (67-100%) -Granulation Quality Red -Slough/Fibrin Yes -Necrosis Amt Medium (34-66%) -Necrotic Tissue Type Adherent Slough -Structure Exposed N/A -Texture (Callum-wound Skin Appearance) Assessed Localized Edema Scarring -Moisture (Callum-wound Skin Appearance Assessed ) Dry/Scaly -Color (Callum-wound Skin Appearance) Assessed -Temperature (Callum-wound Skin No Abnormality Appearance) (Pt Warm) -Tenderness on Palpation (Callum-wound No Skin Appearance) -Ulcer Cleansing Wound Cleanser -Foul Odor after Cleansing No -Anesthetic Used 4% Lidocaine Solution [Edema Assessment] -Lower Limb Edema Present NA - Nurse 2 - General Ulcer CM Notes Start: 08/18/18 13:29 Freq: Status: Active Protocol: Activity Type Activity Date Activity User E-Sign Co-Sign Detail Recorded Client Recorded Date Recorded By Document 08/18/18 13:48 [id number] 08/18/18 13:55 08/18/18 13:48 Wound Center Nurse 2 [Procedure/Treatment] #2- LT GROIN -Time 13:54 -Correct Patient Yes -Correct Side, Site, Position Yes -Correct Procedure Yes -Procedure Performed Yes -Type of Procedure Debridement -Clinical Debridement Subcutaneous -Post Debridement Size (cm) - Length 10.8 -Post Debridement Size (cm) - Width 1.5 -Post Debridement Size (cm) - Depth 0.2 -Total Square Cm 16.20 -Wound/Ulcer Outcome Not Healed -Ulcer Cleansing Rinsed/ Irrigated with Saline -Foul Odor after Cleansing No -Bioengineered Tissue No -Bleeding Controlled with Pressure -Treatment Response Procedure Tolerated Well [See Physician Procedure note for Specifics] Pain Scale: 0-10 Numeric [Pain] -Is Patient Pain Free? Yes Neurological: Neuro grossly intact Psych/Mental Status: Normal Affect, Alert and oriented to time, place, person, mood and affect Debridement Note Post-Debridement Measurements/Treatment WC - Nurse 2 - General Ulcer CM Notes Start: 08/18/18 13:29 Freq: Status: Active Protocol: Activity Type Activity Date Activity User E-Sign Co-Sign Detail Recorded Client Recorded Date Recorded By Document 08/18/18 13:48 [id number] 08/18/18 13:55 08/18/18 13:48 Wound Center Nurse 2 #2- LT GROIN -Time 13:54 -Correct Patient Yes -Correct Side, Site, Position Yes -Correct Procedure Yes -Procedure Performed Yes -Type of Procedure Debridement -Clinical Debridement Subcutaneous -Post Debridement Size (cm) - Length 10.8 -Post Debridement Size (cm) - Width 1.5 -Post Debridement Size (cm) - Depth 0.2 -Total Square Cm 16.20 -Wound/Ulcer Outcome Not Healed -Ulcer Cleansing Rinsed/ Irrigated with Saline -Foul Odor after Cleansing No -Bioengineered Tissue No -Bleeding Controlled with Pressure -Treatment Response Procedure Tolerated Well Pain Scale: 0-10 Numeric Is Patient Pain Free? Yes Wound debrided: Left inguinal Laterality: Left Type of Debridement: Excisional debridement Anesthesia Used: 4% Lidocaine Solution Depth: Down to and including healthy tissue, in the subcutaneous layer Percentage of wound debrided: 100 Instrument Used: 7mm curette Tissue Removed: subcutaneous tissue Severity: Fat Layer Exposed Amount of bleeding with debridement: Mild Bleeding Controlled with: Pressure Assessment/Plan Assessment: 1. 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 2. Diabetes mellitus. 3. Hidradentis. 4. Smoker. 5. History of MRSA. 6 s/p surgical preparation left inguinal area and vulval area (involving genitocrural and mons pubis area) with incision and drainage and excisional debridement necrotizing diabetic abscess and partial vulvectomy including deep subcutaneous tissue (264 cm2). Plan: Continue Aquacel-ag dressing to left groin topped with kerlix and ABD pads daily after gently washing wound and skin around wound with soap and water. Start to gently massage wound and callum-wound during the shower or spray with shower head to start to desensitize the wound and start to soften up scarring.
== END 2018-08-30 23:59 ==
LOC: WC 13:00
PROVIDERS: Family Provider Family Medicine; PCP Family Medicine; Visit Provider Surgery
DX: L73.2 Hidradenitis suppurativa (principal); E11.9 Type 2 diabetes mellitus without complications; E66.01 Morbid (severe) obesity due to excess calories; Z86.14 Personal history of Methicillin resistant Staphylococcus aureus infection; F17.200 Nicotine dependence, unspecified, uncomplicated; T81.4XXA Infection following a procedure, initial encounter
CPT/HCPCS: 11042

== ENCOUNTER 2018-09-01 12:52 | Outpatient (RCR) | payer MEDICAID, SELFPAY ==
[2018-08-31 01:09] VITALS: BP 152/80; PULSE 94; RESP 18; TEMP 36.6
[2018-09-01 12:56] VITALS: BP 151/88; PULSE 112; RESP 18; TEMP 35.9
--- NOTE | 2018-09-01 16:14 | PCM.WC.PN ---
(1) Non-healing open wound of left groin Status: Acute Current Visit: Yes Code(s): S31.104A - Unspecified open wound of abdominal wall, left lower quadrant without penetration into peritoneal cavity, initial encounter (2) Hidradenitis Status: Chronic Current Visit: Yes Code(s): L73.2 - Hidradenitis suppurativa (3) Open wound of vulva with complication Status: Acute Current Visit: Yes Code(s): S31.40XA - Unspecified open wound of vagina and vulva, initial encounter (4) Soft tissue abscess of inguinal region Status: Acute Current Visit: No Code(s): L02.214 - Cutaneous abscess of groin Comment: diabetic abscess left inguinal area (5) Hyperglycemia Status: Chronic Current Visit: No Code(s): R73.9 - Hyperglycemia, unspecified Type of Wound Date of Service: 09/01/18 Chief Complaint: Non-healing wound left inguinal and vulval area. History of Wound: Surgery 06/09/18 - Surgical preparation left inguinal area and vulval area (involving genitocrural and mons pubis area) with incision and drainage and excisional debridement necrotizing diabetic abscess and partial vulvectomy including deep subcutaneous tissue (264 cm2). Wound care - VAC. Having trouble maintaing a seal. Operative culture - Streptococcus agalactiae, Pevotella bivia, and E. coli. She was discharged home on Doxycyline and Cefadroxil. Encourage nutritional supplementation with protein to help the healing process. Her HgbA1c in the hospital was 10.1. Today the fever denies and fever. States she is eating well. Progress of Wound: Wound is improving. - Physical Exam Vital Signs Temp Pulse Resp BP 96.6 F L 112 H 18 151/88 H 09/01/18 12:56 09/01/18 12:56 09/01/18 12:56 09/01/18 12:56 General: Alert, Oriented x3 HEENT: PERRLA Cardiovascular: Regular rate Extremities: Capillary Refill Less than 3 Seconds, Peripheral Pulses Normal Skin: Ulcer/ Wound - Left groin wound Wound Measurements and Assessment WC - Nurse 1 - General Ulcer Measurement Start: 09/01/18 12:55 Freq: Status: Active Protocol: Activity Type Activity Date Activity User E-Sign Co-Sign Detail Recorded Client Recorded Date Recorded By Document 09/01/18 12:56 [id number] 09/01/18 12:59 CS 09/01/18 12:56 Wound Center Nurse 1 [Ulcer Assessment] #2- LT GROIN -Combined with other wound No -Current Size (cm) - Length 1.1 -Current Size (cm) - Width 11.5 -Current Size (cm) - Depth 0.1 -Total Square Cm 12.65 -Photo Taken No -Epithelialization Medium 34-66% -Tunneling No -Undermining/Tunneling No -Circular Undermining No -Exudate Amt Medium (34-66%) -Exudate Type Serosanguineous -Wound Margin Distinct, Outline Attached -Granulation Amt Large (67-100%) -Granulation Quality [place] Red -Slough/Fibrin Yes -Necrosis Amt None Present (0 %) -Necrotic Tissue Type Adherent Slough -Structure Exposed None/Limited to Skin Breakdown -Texture (Callum-wound Skin Appearance) Assessed Scarring -Moisture (Callum-wound Skin Appearance No Abnormality ) Assessed -Color (Callum-wound Skin Appearance) No Abnormality Assessed -Temperature (Callum-wound Skin No Abnormality Appearance) (Pt Warm) -Tenderness on Palpation (Callum-wound No Skin Appearance) -Ulcer Cleansing Rinsed/ Irrigated with Saline -Foul Odor after Cleansing No -Anesthetic Used 4% Lidocaine Solution [Edema Assessment] -Lower Limb Edema Present NA - Nurse 2 - General Ulcer CM Notes Start: 09/01/18 12:55 Freq: Status: Active Protocol: Activity Type Activity Date Activity User E-Sign Co-Sign Detail Recorded Client Recorded Date Recorded By Document 09/01/18 13:27 DV [id number] 09/01/18 13:28 DV 09/01/18 13:27 Wound Center Nurse 2 [Procedure/Treatment] #2- LT GROIN -Time 13:27 -Correct Patient Yes -Correct Side, Site, Position Yes -Correct Procedure Yes -Procedure Performed Yes -Type of Procedure Debridement -Clinical Debridement Subcutaneous -Post Debridement Size (cm) - Length 1.3 -Post Debridement Size (cm) - Width 9.0 -Post Debridement Size (cm) - Depth 0.1 -Total Square Cm 11.70 -Wound/Ulcer Outcome Not Healed -Bleeding Controlled with Pressure -Treatment Response Procedure Tolerated Well [See Physician Procedure note for Specifics] Pain Scale: 0-10 Numeric [Pain] -Is Patient Pain Free? Yes Musculoskeletal: No Tenderness to Palpation of Joints or Extremities Neurological: Neuro grossly intact Psych/Mental Status: Normal Affect, Appropriate Debridement Note Post-Debridement Measurements/Treatment WC - Nurse 2 - General Ulcer CM Notes Start: 09/01/18 12:55 Freq: Status: Active Protocol: Activity Type Activity Date Activity User E-Sign Co-Sign Detail Recorded Client Recorded Date Recorded By Document 09/01/18 13:27 DV [id number] 09/01/18 13:28 DV 09/01/18 13:27 Wound Center Nurse 2 #2- LT GROIN -Time 13:27 -Correct Patient Yes -Correct Side, Site, Position Yes -Correct Procedure Yes -Procedure Performed Yes -Type of Procedure Debridement -Clinical Debridement Subcutaneous -Post Debridement Size (cm) - Length 1.3 -Post Debridement Size (cm) - Width 9.0 -Post Debridement Size (cm) - Depth 0.1 -Total Square Cm 11.70 -Wound/Ulcer Outcome Not Healed -Bleeding Controlled with Pressure -Treatment Response Procedure Tolerated Well Pain Scale: 0-10 Numeric Is Patient Pain Free? Yes Wound debrided: Left groin wound Laterality: Left Type of Debridement: Excisional debridement Anesthesia Used: 4% Lidocaine Solution Depth: in the subcutaneous layer Percentage of wound debrided: 100 Instrument Used: 7mm curette Tissue Removed: Subcutaneous tissue and slough. Severity: Fat Layer Exposed Amount of bleeding with debridement: Mild Bleeding Controlled with: Pressure Patient tolerated procedure well Assessment/Plan Active Problems (Last Reviewed 06/07/18 @ 06:39 by Reynaldo Rehman MD) Hidradenitis (Chronic) Non-healing open wound of left groin (Acute) Open wound of vulva with complication (Acute) Assessment: 1. 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 2. Diabetes mellitus. 3. Hidradentis. 4. Smoker. 5. History of MRSA. 6 s/p surgical preparation left inguinal area and vulval area (involving genitocrural and mons pubis area) with incision and drainage and excisional debridement necrotizing diabetic abscess and partial vulvectomy including deep subcutaneous tissue (264 cm2). Plan: Continue Aquacel-ag dressing to left groin topped with kerlix and ABD pads daily after gently washing wound and skin around wound with soap and water. Start to gently massage wound and callum-wound during the shower or spray with shower head to start to desensitize the wound and start to soften up scarring. Follow-up in 1 week. Code Visit 111xxx-113xx: [id number] Tsering subq tissue 20 sq cm/<
--- NOTE | 2018-09-01 16:18 | PN.PCM_ITS ---
(1) Non-healing open wound of left groin Status: Acute Current Visit: Yes Code(s): S31.104A - Unspecified open wound of abdominal wall, left lower quadrant without penetration into peritoneal cavity, initial encounter (2) Hidradenitis Status: Chronic Current Visit: Yes Code(s): L73.2 - Hidradenitis suppurativa (3) Open wound of vulva with complication Status: Acute Current Visit: Yes Code(s): S31.40XA - Unspecified open wound of vagina and vulva, initial encounter (4) Soft tissue abscess of inguinal region Status: Acute Current Visit: No Code(s): L02.214 - Cutaneous abscess of groin Comment: diabetic abscess left inguinal area (5) Hyperglycemia Status: Chronic Current Visit: No Code(s): R73.9 - Hyperglycemia, unspecified Type of Wound Date of Service: 09/01/18 Chief Complaint: Non-healing wound left inguinal and vulval area. History of Wound: Surgery 06/09/18 - Surgical preparation left inguinal area and vulval area (involving genitocrural and mons pubis area) with incision and drainage and excisional debridement necrotizing diabetic abscess and partial vulvectomy including deep subcutaneous tissue (264 cm2). Wound care - VAC. Having trouble maintaing a seal. Operative culture - Streptococcus agalactiae, Pevotella bivia, and E. coli. She was discharged home on Doxycyline and Cefadroxil. Encourage nutritional supplementation with protein to help the healing process. Her HgbA1c in the hospital was 10.1. Today the fever denies and fever. States she is eating well. Progress of Wound: Wound is improving. - Physical Exam Vital Signs Temp Pulse Resp BP 96.6 F L 112 H 18 151/88 H 09/01/18 12:56 09/01/18 12:56 09/01/18 12:56 09/01/18 12:56 General: Alert, Oriented x3 HEENT: PERRLA Cardiovascular: Regular rate Extremities: Capillary Refill Less than 3 Seconds, Peripheral Pulses Normal Skin: Ulcer/ Wound - Left groin wound Wound Measurements and Assessment WC - Nurse 1 - General Ulcer Measurement Start: 09/01/18 12:55 Freq: Status: Active Protocol: Activity Type Activity Date Activity User E-Sign Co-Sign Detail Recorded Client Recorded Date Recorded By Document 09/01/18 12:56 [id number] 09/01/18 12:59 CS 09/01/18 12:56 Wound Center Nurse 1 [Ulcer Assessment] #2- LT GROIN -Combined with other wound No -Current Size (cm) - Length 1.1 -Current Size (cm) - Width 11.5 -Current Size (cm) - Depth 0.1 -Total Square Cm 12.65 -Photo Taken No -Epithelialization Medium 34-66% -Tunneling No -Undermining/Tunneling No -Circular Undermining No -Exudate Amt Medium (34-66%) -Exudate Type Serosanguineous -Wound Margin Distinct, Outline Attached -Granulation Amt Large (67-100%) -Granulation Quality [place] Red -Slough/Fibrin Yes -Necrosis Amt None Present (0 %) -Necrotic Tissue Type Adherent Slough -Structure Exposed None/Limited to Skin Breakdown -Texture (Callum-wound Skin Appearance) Assessed Scarring -Moisture (Callum-wound Skin Appearance No Abnormality ) Assessed -Color (Callum-wound Skin Appearance) No Abnormality Assessed -Temperature (Callum-wound Skin No Abnormality Appearance) (Pt Warm) -Tenderness on Palpation (Callum-wound No Skin Appearance) -Ulcer Cleansing Rinsed/ Irrigated with Saline -Foul Odor after Cleansing No -Anesthetic Used 4% Lidocaine Solution [Edema Assessment] -Lower Limb Edema Present NA - Nurse 2 - General Ulcer CM Notes Start: 09/01/18 12:55 Freq: Status: Active Protocol: Activity Type Activity Date Activity User E-Sign Co-Sign Detail Recorded Client Recorded Date Recorded By Document 09/01/18 13:27 DV [id number] 09/01/18 13:28 DV 09/01/18 13:27 Wound Center Nurse 2 [Procedure/Treatment] #2- LT GROIN -Time 13:27 -Correct Patient Yes -Correct Side, Site, Position Yes -Correct Procedure Yes -Procedure Performed Yes -Type of Procedure Debridement -Clinical Debridement Subcutaneous -Post Debridement Size (cm) - Length 1.3 -Post Debridement Size (cm) - Width 9.0 -Post Debridement Size (cm) - Depth 0.1 -Total Square Cm 11.70 -Wound/Ulcer Outcome Not Healed -Bleeding Controlled with Pressure -Treatment Response Procedure Tolerated Well [See Physician Procedure note for Specifics] Pain Scale: 0-10 Numeric [Pain] -Is Patient Pain Free? Yes Musculoskeletal: No Tenderness to Palpation of Joints or Extremities Neurological: Neuro grossly intact Psych/Mental Status: Normal Affect, Appropriate Debridement Note Post-Debridement Measurements/Treatment WC - Nurse 2 - General Ulcer CM Notes Start: 09/01/18 12:55 Freq: Status: Active Protocol: Activity Type Activity Date Activity User E-Sign Co-Sign Detail Recorded Client Recorded Date Recorded By Document 09/01/18 13:27 DV [id number] 09/01/18 13:28 DV 09/01/18 13:27 Wound Center Nurse 2 #2- LT GROIN -Time 13:27 -Correct Patient Yes -Correct Side, Site, Position Yes -Correct Procedure Yes -Procedure Performed Yes -Type of Procedure Debridement -Clinical Debridement Subcutaneous -Post Debridement Size (cm) - Length 1.3 -Post Debridement Size (cm) - Width 9.0 -Post Debridement Size (cm) - Depth 0.1 -Total Square Cm 11.70 -Wound/Ulcer Outcome Not Healed -Bleeding Controlled with Pressure -Treatment Response Procedure Tolerated Well Pain Scale: 0-10 Numeric Is Patient Pain Free? Yes Wound debrided: Left groin wound Laterality: Left Type of Debridement: Excisional debridement Anesthesia Used: 4% Lidocaine Solution Depth: in the subcutaneous layer Percentage of wound debrided: 100 Instrument Used: 7mm curette Tissue Removed: Subcutaneous tissue and slough. Severity: Fat Layer Exposed Amount of bleeding with debridement: Mild Bleeding Controlled with: Pressure Patient tolerated procedure well Assessment/Plan Active Problems (Last Reviewed 06/07/18 @ 06:39 by Reynaldo Rehman MD) Hidradenitis (Chronic) Non-healing open wound of left groin (Acute) Open wound of vulva with complication (Acute) Assessment: 1. 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 2. Diabetes mellitus. 3. Hidradentis. 4. Smoker. 5. History of MRSA. 6 s/p surgical preparation left inguinal area and vulval area (involving genitocrural and mons pubis area) with incision and drainage and excisional debridement necrotizing diabetic abscess and partial vulvectomy including deep subcutaneous tissue (264 cm2). Plan: Continue Aquacel-ag dressing to left groin topped with kerlix and ABD pads daily after gently washing wound and skin around wound with soap and water. Start to gently massage wound and callum-wound during the shower or spray with shower head to start to desensitize the wound and start to soften up scarring. Follow-up in 1 week. Code Visit 111xxx-113xx: [id number] Tsering subq tissue 20 sq cm/<
== END 2018-09-30 23:59 ==
LOC: WC 12:52
PROVIDERS: Family Provider Family Medicine; PCP Family Medicine; Visit Provider Surgery
DX: L73.2 Hidradenitis suppurativa (principal); L02.214 Cutaneous abscess of groin; E11.65 Type 2 diabetes mellitus with hyperglycemia; Z86.14 Personal history of Methicillin resistant Staphylococcus aureus infection; F17.200 Nicotine dependence, unspecified, uncomplicated
CPT/HCPCS: 11042

== ENCOUNTER 2018-12-15 09:18 | Inpatient (IN) | payer MEDICAID, SELFPAY ==
[2018-12-15] VITALS (21 sets, daily range): BP systolic 133–160; BP diastolic 52–98; PULSE 88–112; RESP 16–24; TEMP 36.1–37.2; O2SAT 70–98; BMI 54.9; BMI 58.7
--- NOTE | 2018-12-15 09:28 | RAD_ITS ---
STUDY: X-RAY CHEST REASON FOR EXAM: Female, 43 years old. Shortness of breath. TECHNIQUE: Single AP portable view of the chest. COMPARISON: Comparison is made with prior examination dated August 23, 2018. FINDINGS: EKG electrodes are seen. There now is evidence of a infiltration in the right upper lobe. Mild increased markings in the right midlung. Follow-up is recommended. There is no demonstrated pleural abnormality. Normal size heart. Normal mediastinum and evi. Normal visualized pulmonary arteries. Normal visualized aortic arch and descending thoracic aorta. Normal visualized thoracic spine. Normal visualized ribs, clavicles, and shoulders. There is no demonstrated abnormality of the visualized soft tissue structures of the upper abdomen. RAD/Chest 1 View (Portable) IMPRESSION: Right upper lobe infiltrate. Increased markings in the right midlung. Follow-up is recommended. Electronically Signed: Dylan Gan MD at 10:29 EST Tel [phone], Service support ,
--- NOTE | 2018-12-15 09:28 | EKG12_ITS ---
Test Reason : SOB Blood Pressure : / mmHG Vent. Rate : 103 BPM Atrial Rate : 103 BPM P-R Int : 126 ms QRS Dur : 084 ms QT Int : 354 ms P-R-T Axes : 011 007 066 degrees QTc Int : 463 ms Sinus tachycardia Otherwise normal ECG Confirmed by MELISSA LORA, CRISTEL ([id number]), slot editor ANNELIESE YOUNG ([id number]) on 12/17/2018 3:55:53 PM Referred By: Jersey Pradhan Confirmed By:CRISTEL TORRES MD
[2018-12-15] MEDS: Ipratropium/Albuterol Sulfate 3 ML AMPUL.NEB INHALATION ×2 (09:45→18:50)
[2018-12-15 09:49] LABS: ALB/GLOB Ratio 0.7 RATIO (0.9-2.4); AST(SGOT) 22 U/L (15-37); Alanine Aminotransfer ALT/SGPT 27 U/L (13-56); Albumin, Serum 3.2 g/dL (3.2-5.0); Alkaline Phosphatase 82 U/L (45-117); Anion Gap 7 (5-15); BUN 9 mg/dL (7-18); BUN/Creat Ratio 13.3 RATIO (10-20); Calcium,Total 8.6 mg/dL (8.5-10.1); Chloride 96 mmol/L (98-107); Creatinine, Serum 0.68 mg/dL (0.55-1.02); EST Glomerular Filtration Rate 102 mL/min (>60); Est Glom Filt Rate - Afr Amer 123 mL/min (>60); Estimated Creatinine Clearance 97.97 ml/min; Globulin 4.4 g/dL (2.2-4.2); Glucose 257 mg/dL (74-106); Potassium 3.8 mmol/L (3.5-5.1); Protein, Total 7.6 g/dL (6.4-8.2); Sodium Level 135 mmol/L (136-145)
[2018-12-15 09:53] LABS: Lactic Acid 1.4 mmol/L (0.4-2.0)
[2018-12-15 09:55] LABS: Absolute Neutrophil Count 7.7 X10^3/uL (2.0-7.7); Basophil# 0.05 X10^3/uL; Basophil% 0.5 % (0-1); Hematocrit 44.5 % (37-47); Hemoglobin 13.6 g/dl (12.0-15.0); Lymphocyte % 16.1 % (19-41); Mean Corp Hgb Conc 30.6 g/gl (32-36); Mean Corpuscular Hgb 28.8 pg (27.0-32.0); Mean Corpuscular Volume 94.1 fL (81-99); Mean Platelet Vol. 10.2 fl (6.2-12.0); Monocyte# 0.46 X10^3/uL; Monocyte% 4.6 % (0-10); Neutrophil # 7.67 X10^3/uL (2.7-7.7); Neutrophil % 77.1 % (47-70); POSITIVE COUNT NO; POSITIVE DIFFERENTIAL NO; POSITIVE MORPHOLOGY NO; Platelet Count 210 K/mm3 (150-450); RBC Distribution Width CV 15.5 % (11.6-14.6); RBC Distribution Width SD 52.5 fl (35.1-43.9); Red Blood Count 4.73 M/mm3 (4.2-5.4)
[2018-12-15 09:59] LABS: Prothrombin Time (Protime)PT. 13.5 SECONDS (11.7-14.9)
[2018-12-15 10:00] LABS: Partial Thromboplast Time 32.6 Seconds (24.1-36.2)
[2018-12-15 10:01] LABS: Pregnancy, Serum, hCG Quali. NEGATIVE Negative (0-9 Nonpreg)
[2018-12-15 10:23] LABS: BNP,B-Type NATRIURETIC PEPTIDE 20.8 pg/mL (0-100)
[2018-12-15] MEDS: levoFLOXacin IV 750 MG/150 ML BAG 100 MG IV (10:48)
[2018-12-15] MEDS: MethylPREDNISolone 125 MG/2 ML Vial IV (10:48)
[2018-12-15 11:02] LABS: Mucous, Urine 0 SEEN /hpf (<or=2+); White Blood Cells 0 SEEN /hpf (0-5)
[2018-12-15 11:16] LABS: Color, Urine Yellow (Yellow); Glucose, Dipstick 100 mg/dl (Normal); Ketone-Dipstick Negative (Negative); Leukocyte Esterase-Dipstick Negative /ul (Negative); Nitrite-Dipstick Negative (Negative); Occult Blood-Urine 10 /ul (Negative); Protein-Dipstick 100 mg/dl (Negative); Urine Bilirubin Dipstick Negative (Negative); Urine Clarity Sl. Cloudy (Clear); Urine Urobilinogen Normal (Normal)
--- NOTE | 2018-12-15 11:19 | ED.RN ---
PULSE OX 77% ON 5L NC, PT AWAKE TO VOICE AND INSTRUCTED TO TAKE DEEP BREATHS, OXYGEN INCREASED TO 6L VIA NC, PRIMARY NURSE AND PHYSICIAN MADE AWARE.
--- NOTE | 2018-12-15 11:23 | ED.RN ---
PT PLACED ON 15L NRB PER DR. JOAQUIN REQUEST, PULSE OX 98% AFTER INITIATION.
--- NOTE | 2018-12-15 11:24 | NURSING ---
DR MARIA M VOSS
[2018-12-15 11:31] LABS: Red Blood Cells-Urine 0-5 SEEN /hpf (0-5); Squamous Epithelial Cells - UA 0-5 SEEN /hpf (5-10)
[2018-12-15 11:32] LABS: Bacteria RARE /hpf (None Seen)
--- NOTE | 2018-12-15 11:37 | ED.VISSUMM ---
- ER Visit Summary Date of Service: 12/15/18 Chief Complaint: Dyspnea History of Present Illness: The patient is a 43 F with shortness of breath which has been increasing over several days. Patient has a dry cough, body aches. Symptoms are worse with exertion. She has had low pulse ox is. She has a history of COPD and hypoxic respiratory failure. She was previously on oxygen at night but has been using it during the day, 3 L. She has a history of sleep apnea but does not have a functioning mask. Physical Examination: Afebrile. Heart rate 109 and respiratory rate 22. Pulse ox was 70% on room air. Patient appears uncomfortable and short of breath. Lungs are diminished in all fish. Heart is tachycardic but regular. Abdomen soft and nontender. Legs are nontender with no edema. Skin appears normal. Test Results: EKG showed sinus rhythm at a rate of 103. CBC unremarkable. Glucose 257, coags normal, urinalysis pending, troponin indeterminate 0.055. BNP 20 and test negative. Cultures are pending. Chest x-ray showed a right upper lobe infiltrate. Emergency Department Course and Treatment: She was placed on nasal cannula oxygen, she was 95% on 4 L. Treated with a DuoNeb and Solu-Medrol. Workup was consistent with a pneumonia with sepsis. She does not have shock. Treated with Levaquin. Cultures are pending. She became hypoxic when sleeping but responded to nonrebreather mask. She will need inpatient care and was discussed with the hospitalist. Treatment Plan: As above Disposition: To PCU Impression: 1. Right upper lobe pneumonia 2. Sepsis 3. Hypoxia 4. Elevated troponin This note was generated with [employer] dictation software. It may contain incorrect words, spelling, and punctuation that were not noted in review of the chart prior to signing ED Disposition - Plan for ED Patient: Chief Complaint: Shortness of Breath Referrals: Tino Oreilly MD [Primary Care Provider] -
--- NOTE | 2018-12-15 11:41 | ED.DCSUM_ITS ---
- ER Visit Summary Date of Service: 12/15/18 Chief Complaint: Dyspnea History of Present Illness: The patient is a 43 F with shortness of breath which has been increasing over several days. Patient has a dry cough, body aches. Symptoms are worse with exertion. She has had low pulse ox is. She has a hist ory of COPD and hypoxic respiratory failure. She was previously on oxygen at night but has been using it during the day, 3 L. She has a history of sleep apnea but does not have a functioning mask. Physical Examination: Afebrile. Heart rate 109 and respiratory rate 22. Pulse ox was 70% on room air. Patient appears uncomfortable and short of breath. Lungs are diminished in all fish. Heart is tachycardic but regular. Abdomen soft and nontender. Legs are nontender with no edema. Skin appears normal. Test Results: EKG showed sinus rhythm at a rate of 103. CBC unremarkable. Glucose 257, coags normal, urinalysis pending, troponin indeterminate 0.055. BNP 20 and test negative. Cultures are pending. Chest x-ray showed a right upper lobe infiltrate. Emergency Department Course and Treatment: She was placed on nasal cannula oxygen, she was 95% on 4 L. Treated with a DuoNeb and Solu-Medrol. Workup was consistent with a pneumonia with sepsis. She does not have shock. Treated with Levaquin. Cultures are pending. She became hypoxic when sleeping but responded to nonrebreather mask. She will need inpatient care and was discussed with the hospitalist. Treatment Plan: As above Disposition: To PCU Impression: 1. Right upper lobe pneumonia 2. Sepsis 3. Hypoxia 4. Elevated troponin This note was generated with [employer] dictation software. It may contain incorrect words, spelling, and punctuation that were not noted in review of the chart prior to signing ED Disposition - Plan for ED Patient: Chief Complaint: Shortness of Breath Referrals: Tino Oreilly MD [Primary Care Provider] -
--- NOTE | 2018-12-15 11:41 | NURSING ---
PCU PNEUMONIA, HYPOXIA, ELEVATED TROP KITTOE
--- NOTE | 2018-12-15 11:41 | NURSING ---
DR SHERIDAN IN ROOM
--- NOTE | 2018-12-15 11:48 | PCM.HP.STD ---
Problem List (1) CAP (community acquired pneumonia) Status: Acute Qualifiers: Laterality: right Lung location: upper lobe of lung Qualified Code(s): J18.1 - Lobar pneumonia, unspecified organism (2) Hyperglycemia Status: Chronic (3) Respiratory failure with hypoxia Status: Chronic Qualifiers: (4) Hypertension Status: Chronic Qualifiers: (5) 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 Status: Chronic Comment: 23 cmH20 (6) Anxiety Status: Chronic (7) Diabetes mellitus Status: Chronic Qualifiers: (8) Morbid obesity Status: Chronic (9) Hyperlipidemia Status: Chronic Qualifiers: (10) Tobacco abuse Status: Chronic (11) Hyperglycemia due to type 2 diabetes mellitus Status: Chronic Qualifiers: History of Present Illness Date of Admission: 12/15/18 Chief Complaint: Shortness of breath The patient is a 43 year old F with past medical history is again for morbid obesity with BMI of 54.9, diabetes mellitus type 2 tobacco dependence who presented with shortness of breath. Patient symptoms have been ongoing for the past couple of days. Patient reports sick contact. She states that her granddaughter was sick. In view of worsening symptoms patient presented to the emergency department. Checks x-ray obtained was consistent with right upper lobe infiltrate. Antibiotics initiated per protocol admitted to a monitored bed for further management. Past Medical History Past Medical History (Chronic Problems): Chronic Problems (Last Reviewed 12/15/18 @ 11:52 by Jersey Pradhan MD) Hyperglycemia (Chronic) Respiratory failure with hypoxia (Chronic) Hypertension (Chronic) 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 (Chronic) cmH20 Anxiety (Chronic) Diabetes mellitus (Chronic) Morbid obesity (Chronic) Hyperlipidemia (Chronic) Tobacco abuse (Chronic) Hyperglycemia due to type 2 diabetes mellitus (Chronic) Medical History: Medical History (Last Reviewed 12/15/18 @ 11:52 by Jersey Pradhan MD) c section (Resolved) Abscess (Resolved) L02.91 Hypertension (Chronic) I10 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 (Chronic) G47.33 23/17 cmH20 Anxiety (Chronic) F41.9 History of MRSA infection (Resolved) Z86.14 Diabetes mellitus (Chronic) E11.9 Morbid obesity (Chronic) E66.01 Hyperlipidemia (Chronic) E78.5 Tobacco abuse (Chronic) Z72.0 NSTEMI (non-ST elevated myocardial infarction) (Resolved) I21.4 Hyperglycemia due to type 2 diabetes mellitus (Chronic) E11.65 Allergies cyclobenzaprine HCl [From Flexeril] Allergy (Verified 12/15/18 09:21) Hives venlafaxine [From Effexor] Adverse Reaction (Severe, Verified 12/15/18 09:21) unknown Home Medications: Ambulatory Orders Medication Instructions Recorded Buspirone HCl [Buspar] 15 mg PO TID PRN 09/29/13 Lansoprazole [Prevacid] 25 mg PO DAILY 09/29/13 Lisinopril [Zestril] 20 mg PO DAILY 09/29/13 Hydrochlorothiazide [Hctz] 25 mg PO DAILY 02/02/17 Aspirin [Aspirin, Baby] 81 mg PO DAILY 03/26/17 Multivit,Calc,Mins/Iron/Folic 1 ea PO DAILY 03/26/17 [Women's Daily Formula Caplet] [place]-3 Fatty Acids [[place]-3] 1,000 mg PO DAILY 03/26/17 Gabapentin [Neurontin] 400 mg PO TID 05/29/17 Oxygen, Home [Home Oxygen] 2 - 3 lpm NASAL DAILY #1 unit 09/13/17 B12/Levomefolate Calcium/B-6 1 ea PO DAILY 10/07/17 [Folbic Rf Tablet] Dicyclomine HCl [Bentyl] 20 mg PO DAILY 10/07/17 Insulin Aspart [Novolog Flexpen] 35 units SC TIDCM #0 10/08/17 Compression Socks, Medium [Futuro 1 ea MC DAILY #1 ea 02/28/18 Restoring] Furosemide [Lasix] 80 mg PO BID #10 tab 02/28/18 Ibuprofen 800 mg PO 4X/DAY PRN PRN 06/07/18 Dulaglutide [Trulicity] 0.5 ml SQ QWEEK MDD 0.5ml 06/08/18 Cefadroxil [Duracef] 1,000 mg PO BID 14 Days #56 cap 06/10/18 Insulin Glargine [Lantus SoloStar 55 units SC BID #5 pen 06/10/18 Pen] amoxicillin 875 mg-potassium 1 tab PO BID #28 tab 06/15/18 clavulanate 125 mg tablet Oxycodone HCl/Acetaminophen 1 - 2 tab PO 4X/DAY PRN PRN 7 Days 07/06/18 [Percocet 5/325] #40 tab Surgical History: Surgical History (Last Reviewed 12/15/18 @ 11:52 by Jersey Pradhan MD) H/O arthroscopic knee surgery (Resolved) Z98.890 History of cholecystectomy (Resolved) Z98.890, Z90.49 Surgical History: appendectomy, arthroscopy, knee, cholecystectomy, - - . Drainage of right groin abscess. Recent I&D of left groin abscess. 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 Smoking Status: Current every day smoker - *Family History Maternal Family History: Family History (Last Reviewed 12/15/18 @ 11:53 by Jersey Pradhan MD) Father CVA (cerebral vascular accident) Heart disease Diabetes History Items: No pertinent history Review of Systems Constitutional: Reports: Chills, Fever, Malaise, Fatigue HEENT: Denies: Head Aches, Sinus Congestion, Sinus Drainage Respiratory: Reports: Cough, Shortness of Breath Gastrointestinal: Denies: Abdominal Pain, Hematemesis, Hematochezia, Nausea, Melena, Vomiting Genitourinary: Denies: Dysuria, Frequency, Hematuria, Urgency Musculoskeletal: Reports: Muscle pain Skin: Denies: Rash Psychiatric: Denies: Homicidal Ideations, Suicidal Ideations Hematologic/ Lymphatic: Denies: Easy Bruising, Easy Bleeding VTE Information - Inpt Only VTE Present on Admission: No VTE Pharm Prophylaxis ordered?: Yes Patient Problems: Active and Suspected Problems (Last Reviewed 12/15/18 @ 11:52 by Jersey Pradhan MD) CAP (community acquired pneumonia) (Acute) Objective: GENERAL: Appears ill looking dyspneic at rest HEENT: Atraumatic; moist oral mucosa EYES; Anicteric, Normal Conjunctiva NECK; supple, normal thyroid, no distended JVD. RESPIRATORY: Diminished to auscultation bilaterally, CARDIOVASCULAR: Regular S1 S2, no audible murmurs GI: soft, non-tender, normoactive bowel sounds, : No Renal angle tenderness; EXTREMITIES: No edema, no clubbing, no cyanosis. MUSCULOSKELETAL: No Joint Tenderness; NEURO: Awake; no lateralizing signs. SKIN: No Rash PSYCH; flat affect - Physical Exam Vital Signs Temp Pulse Resp BP Pulse Ox 98.9 F 102 H 20 H 133/83 H 98 12/15/18 11:41 12/15/18 11:41 12/15/18 11:41 12/15/18 11:41 12/15/18 11:41 Oxygen Flow Rate (L/min) 15 Oxygen Delivery Method Non-Rebreather Weight: 149.685 kg Body Mass Index (BMI) 54.9 Finger Stick Blood Glucose 189 Microbiology Past 72 Hours 12/15/18 10:40 Influenza Types A,B Direct FA (VIKTOR) - Final Mucosa - Nasopharyngeal Laboratory Tests Past 24 Hrs 12/15/18 12/15/18 12/15/18 09:20 09:20 09:20 WBC 10.0 RBC 4.73 Hgb 13.6 Hct 44.5 MCV 94.1 MCH 28.8 MCHC 30.6 L RDW 15.5 H RDW Differential 52.5 H Plt Count 210 MPV 10.2 Immature Gran % (Auto) 0.700 Neut % (Auto) 77.1 H Lymph % (Auto) 16.1 L [place] % (Auto) 4.6 Eos % (Auto) 1.0 Baso % (Auto) 0.5 Absolute Neuts (auto) 7.7 Absolute Lymphs (auto) 1.60 Total Counted Not Reportable PT 13.5 INR 1.0 APTT 32.6 Sodium 135 L Potassium 3.8 Chloride 96 L Carbon Dioxide 32.0 Anion Gap 7 BUN 9 Creatinine 0.68 Estim Creat Clear Calc 97.97 Est GFR (MDRD) Af Amer 123 Est GFR (MDRD) Non-Af 102 BUN/Creatinine Ratio 13.3 Glucose 257 H Lactic Acid Calcium 8.6 Total Bilirubin 0.50 AST 22 ALT 27 Alkaline Phosphatase 82 Troponin I 0.055 H B-Natriuretic Peptide Total Protein 7.6 Albumin 3.2 Globulin 4.4 H Albumin/Globulin Ratio 0.7 L Serum , Qual Urine Color Urine Clarity Urine pH Ur Specific [place] Urine Protein Urine Glucose (UA) Urine Ketones Urine Occult Blood Urine Nitrite Urine Bilirubin Urine Urobilinogen Ur Leukocyte Esterase Urine RBC Urine WBC Ur Squamous Epith Cells Urine Bacteria Urine Mucus 12/15/18 12/15/18 12/15/18 09:20 09:20 09:20 WBC RBC Hgb Hct MCV MCH MCHC RDW RDW Differential Plt Count MPV Immature Gran % (Auto) Neut % (Auto) Lymph % (Auto) [place] % (Auto) Eos % (Auto) Baso % (Auto) Absolute Neuts (auto) Absolute Lymphs (auto) Total Counted PT INR APTT Sodium Potassium Chloride Carbon Dioxide Anion Gap BUN Creatinine Estim Creat Clear Calc Est GFR (MDRD) Af Amer Est GFR (MDRD) Non-Af BUN/Creatinine Ratio Glucose Lactic Acid 1.4 Calcium Total Bilirubin AST ALT Alkaline Phosphatase Troponin I B-Natriuretic Peptide 20.8 Total Protein Albumin Globulin Albumin/Globulin Ratio Serum , Qual NEGATIVE Urine Color Urine Clarity Urine pH Ur Specific [place] Urine Protein Urine Glucose (UA) Urine Ketones Urine Occult Blood Urine Nitrite Urine Bilirubin Urine Urobilinogen Ur Leukocyte Esterase Urine RBC Urine WBC Ur Squamous Epith Cells Urine Bacteria Urine Mucus 12/15/18 10:50 WBC RBC Hgb Hct MCV MCH MCHC RDW RDW Differential Plt Count MPV Immature Gran % (Auto) Neut % (Auto) Lymph % (Auto) [place] % (Auto) Eos % (Auto) Baso % (Auto) Absolute Neuts (auto) Absolute Lymphs (auto) Total Counted PT INR APTT Sodium Potassium Chloride Carbon Dioxide Anion Gap BUN Creatinine Estim Creat Clear Calc Est GFR (MDRD) Af Amer Est GFR (MDRD) Non-Af BUN/Creatinine Ratio Glucose Lactic Acid Calcium Total Bilirubin AST ALT Alkaline Phosphatase Troponin I B-Natriuretic Peptide Total Protein Albumin Globulin Albumin/Globulin Ratio Serum , Qual Urine Color Yellow Urine Clarity Sl. Cloudy Urine pH 6.0 Ur Specific [place] 1.010 Urine Protein 100 H Urine Glucose (UA) 100 H Urine Ketones Negative Urine Occult Blood 10 H Urine Nitrite Negative Urine Bilirubin Negative Urine Urobilinogen Normal Ur Leukocyte Esterase Negative Urine RBC 0-5 SEEN Urine WBC 0 SEEN Ur Squamous Epith Cells 0-5 SEEN Urine Bacteria RARE Urine Mucus 0 SEEN Assessment/Plan All Active Problems (Last Reviewed 12/15/18 @ 11:52 by Jersey Pradhan MD) Hidradenitis (Resolved) CAP (community acquired pneumonia) (Acute) Non-healing open wound of left groin (Resolved) Open wound of vulva with complication (Resolved) Necrotizing soft tissue infection (Resolved) Abscess of vulva (Resolved) Soft tissue abscess of inguinal region (Resolved) Cellulitis (Resolved) c section (Resolved) H/O arthroscopic knee surgery (Resolved) History of cholecystectomy (Resolved) Abscess (Resolved) History of MRSA infection (Resolved) NSTEMI (non-ST elevated myocardial infarction) (Resolved) Patient is a 43-year-old lady presented with progressive shortness of breath 1. Acute hypoxic respiratory failure secondary to community-acquired pneumonia. Patient was found to be tachypneic on admission. Oxygen saturation was 70% on room air placed on nonrebreather 2. Pneumonia: Suspected to be secondary to streptococci pneumonia. Patient is admitted to regular floor. Blood and sputum cultures sent. Patient placed on Rocephin and Zithromax. He was also placed on oxygen titrated to keep also is greater than 90 3. 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 4. Tobacco dependence counseled on cessation, offered nicotine patch for tobacco cravings 5. Diabetes mellitus type 2 6. Morbid obesity with BMI of 54.9 7. Hypertension-blood pressure controlled, home medications continued with dose adjustment as needed 8. Dyslipidemia-patient is on statin therapy, continued at home dose 9. Depression with anxiety 10. DVT prophylaxis SC Lovenox Clinical Impression(s) from Imaging Studies Chest X-Ray 12/15/18 09:28 IMPRESSION: Right upper lobe infiltrate. Increased markings in the right midlung. Follow-up is recommended. Electronically Signed: Dylan Gan MD at 10:29 EST Tel [phone], Service support , Code Visit Inpatient E&M: [id number] Init Hosp L3
[2018-12-15 12:50] LABS: Bedside Glucose 245 mg/dL (70-110)
[2018-12-15 13:02] LABS: D-Dimer Quantitative (DVT/PE) 0.64 FEU/ug/m (0.27-0.49)
--- NOTE | 2018-12-15 13:09 | CT_ITS ---
STUDY: CTA CHEST REASON FOR EXAM: Female, 43 years old. Elevated d-dimer. History of recent pneumonia. RADIATION DOSAGE (If Supplied By Facility): CTDIvol = ( 35.67 ) mGy, DLP = ( 880.77 ) mGycm TECHNIQUE: The examination was performed with the intravenous administration of 100 ml of Isovue 370 contrast material. Post-processing of the angiographic images was performed, with multiplanar reformation and 3D reconstruction. Individualized dose optimization techniques were used for this CT. COMPARISON: None. FINDINGS: Nonocclusive intraluminal filling defects are seen in branches of the upper lobe pulmonary arteries bilaterally in keeping with the pulmonary emboli. Normal thoracic aorta and visualized great vessels. There is no demonstrated aortic dissection. Normal heart and pericardium. Normal mediastinum. Normal hilar regions. Normal visualized trachea and bronchi. The lungs are well expanded. Patchy areas of groundglass appearance seen in the right upper lobe as well as in the right middle lobe. Patchy infiltrates are also seen at the left lung base and lateral aspect of the right lower lobe. Normal pleura. Normal chest wall structures. There are degenerative changes of thoracic spine. There is a 2.6 x 2.2 cm hypodense nodule in the left adrenal gland. This most likely represents an adrenal adenoma. Small hiatal hernia. CT/CTA Chest W/WO Contrast IMPRESSION: Multiple nonocclusive intraluminal filling defects in the upper lobe pulmonary arterial branches and cuboid. Pulmonary emboli. Areas of groundglass appearance in the right upper lobe and right middle lobe with a finding suggestive of atelectasis and/or infiltrates in both lower lobes. Electronically Signed: Dylan Gan MD at 14:37 EST Tel [phone], Service support ,
[2018-12-15] MEDS: Albuterol 2.5 MG/3 ML VIAL.NEB. INHALATION (15:36)
[2018-12-15] MEDS: APIXABAN 5 MG TABLET 10 MG PO ×2 (16:05→21:19)
[2018-12-15] MEDS: Gabapentin 400 MG Capsule PO ×2 (16:05→21:20)
[2018-12-15] MEDS: Aspirin 81 MG TAB.CHEW PO (16:06)
[2018-12-15] MEDS: Multivitamins,Therapeutic Tablet 1 TABLET PO (16:07)
[2018-12-15] MEDS: Dicyclomine 10 MG Capsule 20 MG PO (16:07)
[2018-12-15] MEDS: hydroCHLOROthiazide 25 MG Tablet PO (16:08)
[2018-12-15] MEDS: Pantoprazole Sodium 40 MG Tablet PO (16:09)
[2018-12-15] MEDS: Lisinopril 20 MG Tablet PO (16:09)
[2018-12-15] MEDS: Glucerna Shake 120 ML LIQUID PO (16:12)
[2018-12-15] MEDS: Ceftriaxone 1 GM/50 ML BAG IV (16:20)
[2018-12-15] MEDS: 0.9% NaCl Peripheral Flush Adult/Peds IV (16:21)
[2018-12-15 16:35] LABS: Bedside Glucose 468 mg/dL (70-110)
[2018-12-15] MEDS: Insulin Lispro 100 UNIT/ML INSULN.PEN 20 UNIT SC ×3 (16:42→22:24)
[2018-12-15] MEDS: Insulin Lispro 100 UNIT/ML INSULN.PEN 35 UNIT SC (16:43)
[2018-12-15 19:01] LABS: Bedside Glucose > 500 mg/dL (70-110)
[2018-12-15] MEDS: oxyCODONE 5 MG Tablet PO (19:58)
[2018-12-15] MEDS: Furosemide 80 MG Tablet PO (21:20)
[2018-12-15] MEDS: guaiFENesin 1,200 MG Tablet 1200 MG PO (21:20)
[2018-12-15 21:35] LABS: Bedside Glucose 494 mg/dL (70-110)
[2018-12-15] MEDS: Zolpidem Tartrate 5 MG Tablet PO (22:23)
[2018-12-15 23:36] LABS: Bedside Glucose 458 mg/dL (70-110)
[2018-12-16] VITALS (27 sets, daily range): BP systolic 121–158; BP diastolic 66–104; PULSE 88–105; RESP 12–31; TEMP 36.4–36.9; O2SAT 90–97
[2018-12-16] MEDS: Ipratropium/Albuterol Sulfate 3 ML AMPUL.NEB INHALATION ×3 (00:38→19:48)
[2018-12-16] MEDS: Insulin Lispro 100 UNIT/ML INSULN.PEN 20 UNIT SC (01:34)
--- NOTE | 2018-12-16 04:09 | CPS ---
applied Humidity to bipap for pt comfort
--- NOTE | 2018-12-16 04:11 | CPS ---
reduced bipap pressures to 17/11
[2018-12-16 05:47] LABS: Hemoglobin 13.2 g/dl (12.0-15.0); Mean Corp Hgb Conc 30.7 g/gl (32-36); Mean Corpuscular Hgb 28.9 pg (27.0-32.0); Mean Corpuscular Volume 94.1 fL (81-99); Mean Platelet Vol. 10.3 fl (6.2-12.0); Platelet Count 210 K/mm3 (150-450); RBC Distribution Width CV 15.4 % (11.6-14.6); RBC Distribution Width SD 51.1 fl (35.1-43.9); Red Blood Count 4.57 M/mm3 (4.2-5.4); White Blood Count 8.4 K/mm3 (4.4-11.0)
[2018-12-16 05:49] LABS: Scan Indicated on CBC? Y/N NO
[2018-12-16 06:06] LABS: Anion Gap 8 (5-15); BUN 12 mg/dL (7-18); BUN/Creat Ratio 16.2 RATIO (10-20); Calcium,Total 9.1 mg/dL (8.5-10.1); Chloride 95 mmol/L (98-107); Creatinine, Serum 0.74 mg/dL (0.55-1.02); EST Glomerular Filtration Rate 92 mL/min (>60); Est Glom Filt Rate - Afr Amer 111 mL/min (>60); Estimated Creatinine Clearance 90.03 ml/min; Glucose 307 mg/dL (74-106); Potassium 3.9 mmol/L (3.5-5.1); Sodium Level 137 mmol/L (136-145)
--- NOTE | 2018-12-16 06:15 | CPS ---
PT HAVING DIFFICULTY TOLERATING BIPAP
[2018-12-16] MEDS: Gabapentin 400 MG Capsule PO ×3 (06:22→21:06)
[2018-12-16 06:30] LABS: Bedside Glucose 318 mg/dL (70-110)
[2018-12-16 07:43] LABS: Hemoglobin A1c 9.6 % (4.2-6.3)
--- NOTE | 2018-12-16 08:11 | PCM.PN.HOSP ---
Patient Problems: Active and Suspected Problems (Last Reviewed 12/15/18 @ 11:52 by Jersey Pradhan MD) CAP (community acquired pneumonia) (Acute) Subjective: Patient is a 43-year-old lady presented with progressive shortness of breath her initial assessment was consistent with right lower lobe infiltrate?community-acquired pneumonia. Patient however still remained persistently hypoxic d-dimer came back positive CTA subsequently ordered came back positive for pulmonary embolism. Objective: GENERAL: Appears ill looking dyspneic at rest HEENT: Atraumatic; moist oral mucosa EYES; Anicteric, Normal Conjunctiva NECK; supple, normal thyroid, no distended JVD. RESPIRATORY: Diminished to auscultation bilaterally, CARDIOVASCULAR: Regular S1 S2, no audible murmurs GI: soft, non-tender, normoactive bowel sounds, : No Renal angle tenderness; EXTREMITIES: No edema, no clubbing, no cyanosis. MUSCULOSKELETAL: No Joint Tenderness; NEURO: Awake; no lateralizing signs. SKIN: No Rash PSYCH; flat affect Vitals/I&O's: Vital Signs Temp Pulse Resp BP Pulse Ox 97.7 F L 93 17 142/78 H 94 12/16/18 04:00 12/16/18 07:00 12/16/18 04:00 12/16/18 04:00 12/16/18 07:14 Oxygen Flow Rate (L/min) 3 Oxygen Delivery Method Nasal Cannula Weight: 149.685 kg Body Mass Index (BMI) 58.7 Finger Stick Blood Glucose 189 Intake and Output for Last 24 Hours 12/14/18 12/15/18 12/16/18 23:59 23:59 23:59 Intake Total 754.9 / 754.9 360 / 360 Balance 754.9 / 754.9 360 / 360 Microbiology Past 72 Hours 12/15/18 10:40 Mucosa - Nasopharyngeal Respiratory Panel (PCR) - Final 12/15/18 10:50 Urine, Clean Catch Streptococcus pneumoniae Antigen (M - Final 12/15/18 10:50 Urine, Clean Catch Legionella Antigen - Final 12/15/18 10:40 Mucosa - Nasopharyngeal Influenza Types A,B Direct FA (VIKTOR) - Final Laboratory Results 12/15/18 09:20: WBC 10.0, RBC 4.73, Hgb 13.6, Hct 44.5, MCV 94.1, MCH 28.8, MCHC 30.6 L, RDW 15.5 H, RDW Differential 52.5 H, Plt Count 210, MPV 10.2, Immature Gran % (Auto) 0.700, Neut % (Auto) 77.1 H, Lymph % (Auto) 16.1 L, [place] % (Auto) 4.6, Eos % (Auto) 1.0, Baso % (Auto) 0.5, Absolute Neuts (auto) 7.7, Absolute Lymphs (auto) 1.60, Total Counted Not Reportable 12/15/18 09:20: PT 13.5, INR 1.0, APTT 32.6 12/15/18 09:20: Sodium 135 L, Potassium 3.8, Chloride 96 L, Carbon Dioxide 32.0, Anion Gap 7, BUN 9, Creatinine 0.68, Estim Creat Clear Calc 97.97, Est GFR (MDRD) Af Amer 123, Est GFR (MDRD) Non-Af 102, BUN/Creatinine Ratio 13.3, Glucose 257 H, Calcium 8.6, Total Bilirubin 0.50, AST 22, ALT 27, Alkaline Phosphatase 82, Troponin I 0.055 H, Total Protein 7.6, Albumin 3.2, Globulin 4.4 H, Albumin/Globulin Ratio 0.7 L 12/15/18 09:20: Lactic Acid 1.4 12/15/18 09:20: B-Natriuretic Peptide 20.8 12/15/18 09:20: Serum , Qual NEGATIVE 12/15/18 09:20: D-Dimer Quant (PE/DVT) 0.64 H* 12/15/18 10:50: Urine Color Yellow, Urine Clarity Sl. Cloudy, Urine pH 6.0, Ur Specific [place] 1.010, Urine Protein 100 H, Urine Glucose (UA) 100 H, Urine Ketones Negative, Urine Occult Blood 10 H, Urine Nitrite Negative, Urine Bilirubin Negative, Urine Urobilinogen Normal, Ur Leukocyte Esterase Negative, Urine RBC 0-5 SEEN, Urine WBC 0 SEEN, Ur Squamous Epith Cells 0-5 SEEN, Urine Bacteria RARE, Urine Mucus 0 SEEN 12/15/18 12:47: POC Glucose 245 H 12/15/18 13:01: Troponin I 0.058 H 12/15/18 15:46: Troponin I 0.047 H 12/15/18 16:27: POC Glucose 468 H* 12/15/18 18:53: POC Glucose > 500 H* 12/15/18 21:24: POC Glucose 494 H* 12/15/18 23:32: POC Glucose 458 H* 12/16/18 05:20: WBC 8.4, RBC 4.57, Hgb 13.2, Hct 43.0, MCV 94.1, MCH 28.9, MCHC 30.7 L, RDW 15.4 H, RDW Differential 51.1 H, Plt Count 210, MPV 10.3 12/16/18 05:20: Sodium 137, Potassium 3.9, Chloride 95 L, Carbon Dioxide 34.0 H, Anion Gap 8, BUN 12, Creatinine 0.74, Estim Creat Clear Calc 90.03, Est GFR (MDRD) Af Amer 111, Est GFR (MDRD) Non-Af 92, BUN/Creatinine Ratio 16.2, Glucose 307 H, Calcium 9.1 12/16/18 05:20: Hemoglobin A1c 9.6 H 12/16/18 06:25: POC Glucose 318 H Current Medications Acetaminophen (Tylenol) 650 mg PO Q4H PRN PRN PRN Reason: FEVER Al Hydroxide/Mg Hydroxide (Mylanta Ii) 30 ml PO Q6H PRN PRN PRN Reason: Gastric burning Albuterol Sulfate (Ventolin Aerosols) 2.5 mg INHALATION Q2H PRN PRN PRN Reason: SHORTNESS OF BREATH Last Admin: 12/15/18 15:36 Dose: 2.5 mg Albuterol/Ipratropium (Duoneb) 3 ml INHALATION Q6H.RT [facility] Last Admin: 12/16/18 07:14 Dose: Not Given Apixaban (Eliquis) 10 mg PO BID [facility] Last Admin: 12/15/18 21:19 Dose: 10 mg Aspirin (Aspirin, Baby) 81 mg PO DAILY@0800 [facility] Last Admin: 12/15/18 16:06 Dose: 81 mg Buspirone HCl (Buspar) 15 mg PO TID PRN PRN Reason: ANXIETY Dextrose (D50w Syringe) 0 gm IV X1 PRN; Protocol PRN Reason: Hypoglycemia Dicyclomine HCl (Bentyl) 20 mg PO DAILY [facility] Last Admin: 12/15/18 16:07 Dose: 20 mg Furosemide (Lasix) 80 mg PO BID [facility] Last Admin: 12/15/18 21:20 Dose: 80 mg Gabapentin (Neurontin) 400 mg PO TID [facility] Last Admin: 12/16/18 06:22 Dose: 400 mg Glucagon () 1 mg IM .X1 PRN PRN Reason: Hypoglycemia Guaifenesin (Mucinex) 1,200 mg PO BID [facility] Last Admin: 12/15/18 21:20 Dose: 1,200 mg Hydrochlorothiazide (Hctz) 25 mg PO DAILY [facility] Last Admin: 12/15/18 16:08 Dose: 25 mg Ceftriaxone Sodium (Rocephin) 1 gm in 50 mls @ 100 mls/hr IV Q24 [facility] Last Admin: 12/15/18 16:20 Dose: 100 mls/hr Azithromycin 500 mg/ Dextrose 255 mls @ 250 mls/hr IV Q24 [facility] Stop: 12/18/18 11:02 Influenza Virus Vaccine Quadrival (Fluarix/Fluzone) 0.5 ml IM .ONCE ONE Stop: 12/16/18 10:01 Insulin Glargine (Lantus (Bkc)) 55 units SC BID [facility] Last Admin: 12/15/18 19:31 Dose: 55 units Insulin Human Lispro (Humalog Kwikpen (Bkc)) 35 unit SC 0800,1200,1700 [facility] Last Admin: 12/15/18 16:43 Dose: 35 units Insulin Human Lispro (Humalog Kwikpen (Bkc)) 0 unit SQ ACHS [facility]; Protocol Last Admin: 12/15/18 22:23 Dose: Not Given Lisinopril (Zestril) 20 mg PO DAILY [facility] Last Admin: 12/15/18 16:09 Dose: 20 mg Magnesium Hydroxide (Milk Of Magnesia) 30 ml PO DAILY PRN PRN Reason: Constipation Multivitamins (Multivitamin) 1 tablet PO DAILY@0800 [facility] Last Admin: 12/15/18 16:07 Dose: 1 tablet Nicotine (Nicoderm Cq (Pbkc)) 21 mg TRANSDERM. DAILY [facility] Last Admin: 12/15/18 16:08 Dose: 21 mg Ondansetron HCl (Zofran) 4 mg IV Q8H PRN PRN PRN Reason: NAUSEA Oxycodone HCl (Oxyir) 5 mg PO Q4H PRN PRN PRN Reason: Moderate Pain (pain scale 4-5) Last Admin: 12/15/18 19:58 Dose: 5 mg Pantoprazole Sodium (Protonix) 40 mg PO DAILY [facility] Last Admin: 12/15/18 16:09 Dose: 40 mg Psyllium Hydrophilic Mucilloid (Metamucil) 1 packet PO DAILY PRN PRN PRN Reason: CONSTIPATION Sodium Chloride () 5 - 15 ml IV UD PRN PRN Reason: SALINE FLUSH Last Admin: 12/15/18 16:21 Dose: 10 ml Zolpidem Tartrate (Ambien (Generic)) 5 mg PO QHS PRN PRN PRN Reason: INSOMNIA Last Admin: 12/15/18 22:23 Dose: 5 mg Medical Necessity - Tobacco Use Smoking Status: Current every day smoker Assessment/Plan All Active Problems (Last Reviewed 12/15/18 @ 11:52 by Jersey Pradhan MD) Hidradenitis (Resolved) CAP (community acquired pneumonia) (Acute) Non-healing open wound of left groin (Resolved) Open wound of vulva with complication (Resolved) Necrotizing soft tissue infection (Resolved) Abscess of vulva (Resolved) Soft tissue abscess of inguinal region (Resolved) Cellulitis (Resolved) c section (Resolved) H/O arthroscopic knee surgery (Resolved) History of cholecystectomy (Resolved) Abscess (Resolved) History of MRSA infection (Resolved) NSTEMI (non-ST elevated myocardial infarction) (Resolved) Patient is a 43-year-old lady presented with progressive shortness of breath 1. Acute hypoxic respiratory failure secondary to community-acquired pneumonia as well as acute pulmonary embolism. 2. Acute pulmonary embolism patient started on Eliquis echo ordered in addition to bilateral venous duplex 3. Pneumonia: Suspected to be secondary to streptococci pneumonia. Patient is admitted to regular floor. Blood and sputum cultures sent. Patient placed on Rocephin and Zithromax. She was also placed on oxygen titrated to keep also is greater than 90 4. Tobacco dependence counseled on cessation, offered nicotine patch for tobacco cravings 5. Diabetes mellitus type 2 6. Morbid obesity with BMI of 54.9 7. Hypertension-blood pressure controlled, home medications continued with dose adjustment as needed 8. Dyslipidemia-patient is on statin therapy, continued at home dose 9. Depression with anxiety 10. 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 11. DVT prophylaxis SC Lovenox Clinical Impression(s) from Imaging Studies Chest X-Ray 12/15/18 09:28 IMPRESSION: Right upper lobe infiltrate. Increased markings in the right midlung. Follow-up is recommended. Electronically Signed: Dylan Gan MD at 10:29 EST Tel [phone], Service support , Chest CTA 12/15/18 13:09 IMPRESSION: Multiple nonocclusive intraluminal filling defects in the upper lobe pulmonary arterial branches and cuboid. Pulmonary emboli. Areas of groundglass appearance in the right upper lobe and right middle lobe with a finding suggestive of atelectasis and/or infiltrates in both lower lobes. Electronically Signed: Dylan Gan MD at 14:37 EST Tel [phone], Service support , Active Medications Acetaminophen (Tylenol) 650 mg PO Q4H PRN PRN PRN Reason: FEVER Al Hydroxide/Mg Hydroxide (Mylanta Ii) 30 ml PO Q6H PRN PRN PRN Reason: Gastric burning Albuterol Sulfate (Ventolin Aerosols) 2.5 mg INHALATION Q2H PRN PRN PRN Reason: SHORTNESS OF BREATH Last Admin: 12/15/18 15:36 Dose: 2.5 mg Albuterol/Ipratropium (Duoneb) 3 ml INHALATION Q6H.RT [facility] Last Admin: 12/16/18 07:14 Dose: Not Given Apixaban (Eliquis) 10 mg PO BID [facility] Last Admin: 12/16/18 09:13 Dose: 10 mg Aspirin (Aspirin, Baby) 81 mg PO DAILY@0800 [facility] Last Admin: 12/16/18 09:12 Dose: 81 mg Buspirone HCl (Buspar) 15 mg PO TID PRN PRN Reason: ANXIETY Dextrose (D50w Syringe) 0 gm IV X1 PRN; Protocol PRN Reason: Hypoglycemia Dicyclomine HCl (Bentyl) 20 mg PO DAILY [facility] Last Admin: 12/16/18 09:19 Dose: 20 mg Furosemide (Lasix) 80 mg PO BID [facility] Last Admin: 12/16/18 09:12 Dose: 80 mg Gabapentin (Neurontin) 400 mg PO TID [facility] Last Admin: 12/16/18 06:22 Dose: 400 mg Glucagon () 1 mg IM .X1 PRN PRN Reason: Hypoglycemia Guaifenesin (Mucinex) 1,200 mg PO BID [facility] Last Admin: 12/16/18 09:13 Dose: 1,200 mg Hydrochlorothiazide (Hctz) 25 mg PO DAILY [facility] Last Admin: 12/16/18 09:19 Dose: 25 mg Ceftriaxone Sodium (Rocephin) 1 gm in 50 mls @ 100 mls/hr IV Q24 [facility] Last Admin: 12/16/18 09:18 Dose: 100 mls/hr Azithromycin 500 mg/ Dextrose 255 mls @ 250 mls/hr IV Q24 [facility] Stop: 12/18/18 11:02 Last Admin: 12/16/18 11:12 Dose: 250 mls/hr Insulin Glargine (Lantus (Bkc)) 55 units SC BID [facility] Last Admin: 12/16/18 09:14 Dose: 55 units Insulin Human Lispro (Humalog Kwikpen (Bkc)) 35 unit SC 0800,1200,1700 [facility] Last Admin: 12/16/18 09:03 Dose: 35 units Insulin Human Lispro (Humalog Kwikpen (Bkc)) 0 unit SQ ACHS [facility]; Protocol Last Admin: 12/16/18 09:03 Dose: 9 u Lisinopril (Zestril) 20 mg PO DAILY [facility] Last Admin: 12/16/18 09:12 Dose: 20 mg Magnesium Hydroxide (Milk Of Magnesia) 30 ml PO DAILY PRN PRN Reason: Constipation Multivitamins (Multivitamin) 1 tablet PO DAILY@0800 [facility] Last Admin: 12/16/18 09:19 Dose: 1 tablet Nicotine (Nicoderm Cq (Pbkc)) 21 mg TRANSDERM. DAILY [facility] Last Admin: 12/15/18 16:08 Dose: 21 mg Ondansetron HCl (Zofran) 4 mg IV Q8H PRN PRN PRN Reason: NAUSEA Oxycodone HCl (Oxyir) 5 mg PO Q4H PRN PRN PRN Reason: Moderate Pain (pain scale 4-5) Last Admin: 12/16/18 09:19 Dose: 5 mg Pantoprazole Sodium (Protonix) 40 mg PO DAILY [facility] Last Admin: 12/16/18 09:19 Dose: 40 mg Psyllium Hydrophilic Mucilloid (Metamucil) 1 packet PO DAILY PRN PRN PRN Reason: CONSTIPATION Sodium Chloride () 5 - 15 ml IV UD PRN PRN Reason: SALINE FLUSH Last Admin: 12/15/18 16:21 Dose: 10 ml Zolpidem Tartrate (Ambien (Generic)) 5 mg PO QHS PRN PRN PRN Reason: INSOMNIA Last Admin: 12/15/18 22:23 Dose: 5 mg Code Visit Inpatient E&M: 89332 Subs Hosp L3
--- NOTE | 2018-12-16 08:15 | PN_ITS ---
Patient Problems: Active and Suspected Problems (Last Reviewed 12/15/18 @ 11:52 by Jersey Pradhan MD) CAP (community acquired pneumonia) (Acute) Subjective: Patient is a 43-year-old lady presented with progressive shortness of breath her initial assessment was consistent with right lower lobe infiltrate?community- acquired pneumonia. Patient however still remained persistently hypoxic d-dimer came back positive CTA subsequently ordered came back positive for pulmonary embolism. Objective: GENERAL: Appears ill looking dyspneic at rest HEENT: Atraumatic; moist oral mucosa EYES; Anicteric, Normal Conjunctiva NECK; supple, normal thyroid, no distended JVD. RESPIRATORY: Diminished to auscultation bilaterally, CARDIOVASCULAR: Regular S1 S2, no audible murmurs GI: soft, non-tender, normoactive bowel sounds, : No Renal angle tenderness; EXTREMITIES: No edema, no clubbing, no cyanosis. MUSCULOSKELETAL: No Joint Tenderness; NEURO: Awake; no lateralizing signs. SKIN: No Rash PSYCH; flat affect Vitals/I&O's: Vital Signs Temp Pulse Resp BP Pulse Ox 97.7 F L 93 17 142/78 H 94 12/16/18 04:00 12/16/18 07:00 12/16/18 04:00 12/16/18 04:00 12/16/18 07:14 Oxygen Flow Rate (L/min) 3 Oxygen Delivery Method Nasal Cannula Weight: 149.685 kg Body Mass Index (BMI) 58.7 Finger Stick Blood Glucose 189 Intake and Output for Last 24 Hours 12/14/18 12/15/18 12/16/18 23:59 23:59 23:59 Intake Total 754.9 / 754.9 360 / 360 Balance 754.9 / 754.9 360 / 360 Microbiology Past 72 Hours 12/15/18 10:40 Mucosa - Nasopharyngeal Respiratory Panel (PCR) - Final 12/15/18 10:50 Urine, Clean Catch Streptococcus pneumoniae Antigen (M - Final 12/15/18 10:50 Urine, Clean Catch Legionella Antigen - Final 12/15/18 10:40 Mucosa - Nasopharyngeal Influenza Types A,B Direct FA (VIKTOR) - Final Laboratory Results 12/15/18 09:20: WBC 10.0, RBC 4.73, Hgb 13.6, Hct 44.5, MCV 94.1, MCH 28.8, MCHC 30.6 L, RDW 15.5 H, RDW Differential 52.5 H, Plt Count 210, MPV 10.2, Immature Gran % (Auto) 0.700, Neut % (Auto) 77.1 H, Lymph % (Auto) 16.1 L, Gregory % (Auto) 4.6, Eos % (Auto) 1.0, Baso % (Auto) 0.5, Absolute Neuts (auto) 7.7, Absolute Lymphs (auto) 1.60, Total Counted Not Reportable 12/15/18 09:20: PT 13.5, INR 1.0, APTT 32.6 12/15/18 09:20: Sodium 135 L, Potassium 3.8, Chloride 96 L, Carbon Dioxide 32.0, Anion Gap 7, BUN 9, Creatinine 0.68, Estim Creat Clear Calc 97.97, Est GFR (MDRD) Af Amer 123, Est GFR (MDRD) Non-Af 102, BUN/Creatinine Ratio 13.3, Glucose 257 H, Calcium 8.6, Total Bilirubin 0.50, AST 22, ALT 27, Alkaline Phosphatase 82, Troponin I 0.055 H, Total Protein 7.6, Albumin 3.2, Globulin 4.4 H, Albumin/Globulin Ratio 0.7 L 12/15/18 09:20: Lactic Acid 1.4 12/15/18 09:20: B-Natriuretic Peptide 20.8 12/15/18 09:20: Serum , Qual NEGATIVE 12/15/18 09:20: D-Dimer Quant (PE/DVT) 0.64 H* 12/15/18 10:50: Urine Color Yellow, Urine Clarity Sl. Cloudy, Urine pH 6.0, Ur Specific [place] 1.010, Urine Protein 100 H, Urine Glucose (UA) 100 H, Urine Ketones Negative, Urine Occult Blood 10 H, Urine Nitrite Negative, Urine Bilirubin Negative, Urine Urobilinogen Normal, Ur Leukocyte Esterase Negative, Urine RBC 0-5 SEEN, Urine WBC 0 SEEN, Ur Squamous Epith Cells 0-5 SEEN, Urine Bacteria RARE, Urine Mucus 0 SEEN 12/15/18 12:47: POC Glucose 245 H 12/15/18 13:01: Troponin I 0.058 H 12/15/18 15:46: Troponin I 0.047 H 12/15/18 16:27: POC Glucose 468 H* 12/15/18 18:53: POC Glucose > 500 H* 12/15/18 21:24: POC Glucose 494 H* 12/15/18 23:32: POC Glucose 458 H* 12/16/18 05:20: WBC 8.4, RBC 4.57, Hgb 13.2, Hct 43.0, MCV 94.1, MCH 28.9, MCHC 30.7 L, RDW 15.4 H, RDW Differential 51.1 H, Plt Count 210, MPV 10.3 12/16/18 05:20: Sodium 137, Potassium 3.9, Chloride 95 L, Carbon Dioxide 34.0 H, Anion Gap 8, BUN 12, Creatinine 0.74, Estim Creat Clear Calc 90.03, Est GFR (MDRD) Af Amer 111, Est GFR (MDRD) Non-Af 92, BUN/Creatinine Ratio 16.2, Glucose 307 H, Calcium 9.1 12/16/18 05:20: Hemoglobin A1c 9.6 H 12/16/18 06:25: POC Glucose 318 H Current Medications Acetaminophen (Tylenol) 650 mg PO Q4H PRN PRN PRN Reason: FEVER Al Hydroxide/Mg Hydroxide (Mylanta Ii) 30 ml PO Q6H PRN PRN PRN Reason: Gastric burning Albuterol Sulfate (Ventolin Aerosols) 2.5 mg INHALATION Q2H PRN PRN PRN Reason: SHORTNESS OF BREATH Last Admin: 12/15/18 15:36 Dose: 2.5 mg Albuterol/Ipratropium (Duoneb) 3 ml INHALATION Q6H.RT [facility] Last Admin: 12/16/18 07:14 Dose: Not Given Apixaban (Eliquis) 10 mg PO BID [facility] Last Admin: 12/15/18 21:19 Dose: 10 mg Aspirin (Aspirin, Baby) 81 mg PO DAILY@0800 [facility] Last Admin: 12/15/18 16:06 Dose: 81 mg Buspirone HCl (Buspar) 15 mg PO TID PRN PRN Reason: ANXIETY Dextrose (D50w Syringe) 0 gm IV X1 PRN; Protocol PRN Reason: Hypoglycemia Dicyclomine HCl (Bentyl) 20 mg PO DAILY [facility] Last Admin: 12/15/18 16:07 Dose: 20 mg Furosemide (Lasix) 80 mg PO BID [facility] Last Admin: 12/15/18 21:20 Dose: 80 mg Gabapentin (Neurontin) 400 mg PO TID [facility] Last Admin: 12/16/18 06:22 Dose: 400 mg Glucagon () 1 mg IM .X1 PRN PRN Reason: Hypoglycemia Guaifenesin (Mucinex) 1,200 mg PO BID [facility] Last Admin: 12/15/18 21:20 Dose: 1,200 mg Hydrochlorothiazide (Hctz) 25 mg PO DAILY [facility] Last Admin: 12/15/18 16:08 Dose: 25 mg Ceftriaxone Sodium (Rocephin) 1 gm in 50 mls @ 100 mls/hr IV Q24 [facility] Last Admin: 12/15/18 16:20 Dose: 100 mls/hr Azithromycin 500 mg/ Dextrose 255 mls @ 250 mls/hr IV Q24 [facility] Stop: 12/18/18 11:02 Influenza Virus Vaccine Quadrival (Fluarix/Fluzone) 0.5 ml IM .ONCE ONE Stop: 12/16/18 10:01 Insulin Glargine (Lantus (Bkc)) 55 units SC BID [facility] Last Admin: 12/15/18 19:31 Dose: 55 units Insulin Human Lispro (Humalog Kwikpen (Bkc)) 35 unit SC 0800,1200,1700 [facility] Last Admin: 12/15/18 16:43 Dose: 35 units Insulin Human Lispro (Humalog Kwikpen (Bkc)) 0 unit SQ ACHS [facility]; Protocol Last Admin: 12/15/18 22:23 Dose: Not Given Lisinopril (Zestril) 20 mg PO DAILY [facility] Last Admin: 12/15/18 16:09 Dose: 20 mg Magnesium Hydroxide (Milk Of Magnesia) 30 ml PO DAILY PRN PRN Reason: Constipation Multivitamins (Multivitamin) 1 tablet PO DAILY@0800 [facility] Last Admin: 12/15/18 16:07 Dose: 1 tablet Nicotine (Nicoderm Cq (Pbkc)) 21 mg TRANSDERM. DAILY [facility] Last Admin: 12/15/18 16:08 Dose: 21 mg Ondansetron HCl (Zofran) 4 mg IV Q8H PRN PRN PRN Reason: NAUSEA Oxycodone HCl (Oxyir) 5 mg PO Q4H PRN PRN PRN Reason: Moderate Pain (pain scale 4-5) Last Admin: 12/15/18 19:58 Dose: 5 mg Pantoprazole Sodium (Protonix) 40 mg PO DAILY [facility] Last Admin: 12/15/18 16:09 Dose: 40 mg Psyllium Hydrophilic Mucilloid (Metamucil) 1 packet PO DAILY PRN PRN PRN Reason: CONSTIPATION Sodium Chloride () 5 - 15 ml IV UD PRN PRN Reason: SALINE FLUSH Last Admin: 12/15/18 16:21 Dose: 10 ml Zolpidem Tartrate (Ambien (Generic)) 5 mg PO QHS PRN PRN PRN Reason: INSOMNIA Last Admin: 12/15/18 22:23 Dose: 5 mg Medical Necessity - Tobacco Use Smoking Status: Current every day smoker Assessment/Plan All Active Problems (Last Reviewed 12/15/18 @ 11:52 by Jersey Pradhan MD) Hidradenitis (Resolved) CAP (community acquired pneumonia) (Acute) Non-healing open wound of left groin (Resolved) Open wound of vulva with complication (Resolved) Necrotizing soft tissue infection (Resolved) Abscess of vulva (Resolved) Soft tissue abscess of inguinal region (Resolved) Cellulitis (Resolved) c section (Resolved) H/O arthroscopic knee surgery (Resolved) History of cholecystectomy (Resolved) Abscess (Resolved) History of MRSA infection (Resolved) NSTEMI (non-ST elevated myocardial infarction) (Resolved) Patient is a 43-year-old lady presented with progressive shortness of breath 1. Acute hypoxic respiratory failure secondary to community-acquired pneumonia as well as acute pulmonary embolism. 2. Acute pulmonary embolism patient started on Eliquis echo ordered in addition to bilateral venous duplex 3. Pneumonia: Suspected to be secondary to streptococci pneumonia. Patient is admitted to regular floor. Blood and sputum cultures sent. Patient placed on Rocephin and Zithromax. She was also placed on oxygen titrated to keep also is greater than 90 4. Tobacco dependence counseled on cessation, offered nicotine patch for tobacco cravings 5. Diabetes mellitus type 2 6. Morbid obesity with BMI of 54.9 7. Hypertension-blood pressure controlled, home medications continued with dose adjustment as needed 8. Dyslipidemia-patient is on statin therapy, continued at home dose 9. Depression with anxiety 10. 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 11. DVT prophylaxis SC Lovenox Clinical Impression(s) from Imaging Studies Chest X-Ray 12/15/18 09:28 IMPRESSION: Right upper lobe infiltrate. Increased markings in the right midlung. Follow-up is recommended. Electronically Signed: Dylan Gan MD at 10:29 EST Tel [phone], Service support , Chest CTA 12/15/18 13:09 IMPRESSION: Multiple nonocclusive intraluminal filling defects in the upper lobe pulmonary arterial branches and cuboid. Pulmonary emboli. Areas of groundglass appearance in the right upper lobe and right middle lobe with a finding suggestive of atelectasis and/or infiltrates in both lower lobes. Electronically Signed: Dylan Gan MD at 14:37 EST Tel [phone], Service support , Active Medications Acetaminophen (Tylenol) 650 mg PO Q4H PRN PRN PRN Reason: FEVER Al Hydroxide/Mg Hydroxide (Mylanta Ii) 30 ml PO Q6H PRN PRN PRN Reason: Gastric burning Albuterol Sulfate (Ventolin Aerosols) 2.5 mg INHALATION Q2H PRN PRN PRN Reason: SHORTNESS OF BREATH Last Admin: 12/15/18 15:36 Dose: 2.5 mg Albuterol/Ipratropium (Duoneb) 3 ml INHALATION Q6H.RT [facility] Last Admin: 12/16/18 07:14 Dose: Not Given Apixaban (Eliquis) 10 mg PO BID [facility] Last Admin: 12/16/18 09:13 Dose: 10 mg Aspirin (Aspirin, Baby) 81 mg PO DAILY@0800 [facility] Last Admin: 12/16/18 09:12 Dose: 81 mg Buspirone HCl (Buspar) 15 mg PO TID PRN PRN Reason: ANXIETY Dextrose (D50w Syringe) 0 gm IV X1 PRN; Protocol PRN Reason: Hypoglycemia Dicyclomine HCl (Bentyl) 20 mg PO DAILY [facility] Last Admin: 12/16/18 09:19 Dose: 20 mg Furosemide (Lasix) 80 mg PO BID [facility] Last Admin: 12/16/18 09:12 Dose: 80 mg Gabapentin (Neurontin) 400 mg PO TID [facility] Last Admin: 12/16/18 06:22 Dose: 400 mg Glucagon () 1 mg IM .X1 PRN PRN Reason: Hypoglycemia Guaifenesin (Mucinex) 1,200 mg PO BID [facility] Last Admin: 12/16/18 09:13 Dose: 1,200 mg Hydrochlorothiazide (Hctz) 25 mg PO DAILY [facility] Last Admin: 12/16/18 09:19 Dose: 25 mg Ceftriaxone Sodium (Rocephin) 1 gm in 50 mls @ 100 mls/hr IV Q24 [facility] Last Admin: 12/16/18 09:18 Dose: 100 mls/hr Azithromycin 500 mg/ Dextrose 255 mls @ 250 mls/hr IV Q24 [facility] Stop: 12/18/18 11:02 Last Admin: 12/16/18 11:12 Dose: 250 mls/hr Insulin Glargine (Lantus (Bkc)) 55 units SC BID [facility] Last Admin: 12/16/18 09:14 Dose: 55 units Insulin Human Lispro (Humalog Kwikpen (Bkc)) 35 unit SC 0800,1200,1700 [facility] Last Admin: 12/16/18 09:03 Dose: 35 units Insulin Human Lispro (Humalog Kwikpen (Bkc)) 0 unit SQ ACHS [facility]; Protocol Last Admin: 12/16/18 09:03 Dose: 9 u Lisinopril (Zestril) 20 mg PO DAILY [facility] Last Admin: 12/16/18 09:12 Dose: 20 mg Magnesium Hydroxide (Milk Of Magnesia) 30 ml PO DAILY PRN PRN Reason: Constipation Multivitamins (Multivitamin) 1 tablet PO DAILY@0800 [facility] Last Admin: 12/16/18 09:19 Dose: 1 tablet Nicotine (Nicoderm Cq (Pbkc)) 21 mg TRANSDERM. DAILY [facility] Last Admin: 12/15/18 16:08 Dose: 21 mg Ondansetron HCl (Zofran) 4 mg IV Q8H PRN PRN PRN Reason: NAUSEA Oxycodone HCl (Oxyir) 5 mg PO Q4H PRN PRN PRN Reason: Moderate Pain (pain scale 4-5) Last Admin: 12/16/18 09:19 Dose: 5 mg Pantoprazole Sodium (Protonix) 40 mg PO DAILY [facility] Last Admin: 12/16/18 09:19 Dose: 40 mg Psyllium Hydrophilic Mucilloid (Metamucil) 1 packet PO DAILY PRN PRN PRN Reason: CONSTIPATION Sodium Chloride () 5 - 15 ml IV UD PRN PRN Reason: SALINE FLUSH Last Admin: 12/15/18 16:21 Dose: 10 ml Zolpidem Tartrate (Ambien (Generic)) 5 mg PO QHS PRN PRN PRN Reason: INSOMNIA Last Admin: 12/15/18 22:23 Dose: 5 mg Code Visit Inpatient E&M: 97562 Subs Hosp L3
[2018-12-16] MEDS: Insulin Lispro 100 UNIT/ML INSULN.PEN 35 UNIT SC ×3 (09:03→17:22)
[2018-12-16] MEDS: Insulin Lispro 100 UNIT/ML INSULN.PEN SQ ×4 (09:03→21:13)
[2018-12-16] MEDS: Lisinopril 20 MG Tablet PO (09:12)
[2018-12-16] MEDS: Aspirin 81 MG TAB.CHEW PO (09:12)
[2018-12-16] MEDS: Furosemide 80 MG Tablet PO ×2 (09:12→21:05)
[2018-12-16] MEDS: guaiFENesin 1,200 MG Tablet 1200 MG PO ×2 (09:13→21:05)
[2018-12-16] MEDS: APIXABAN 5 MG TABLET 10 MG PO ×2 (09:13→21:05)
[2018-12-16] MEDS: Ceftriaxone 1 GM/50 ML BAG IV (09:18)
[2018-12-16] MEDS: hydroCHLOROthiazide 25 MG Tablet PO (09:19)
[2018-12-16] MEDS: oxyCODONE 5 MG Tablet PO ×2 (09:19→21:04)
[2018-12-16] MEDS: Pantoprazole Sodium 40 MG Tablet PO (09:19)
[2018-12-16] MEDS: Multivitamins,Therapeutic Tablet 1 TABLET PO (09:19)
[2018-12-16] MEDS: Dicyclomine 10 MG Capsule 20 MG PO (09:19)
[2018-12-16 09:40] LABS: Bedside Glucose 375 mg/dL (70-110)
--- NOTE | 2018-12-16 11:19 | CASEMGMT ---
Addendum entered by Brandy Suresh 12/17/18 16:14: This RN CM received call back from TRAN Beltran CM, and she changed pt's appt to Friday12/21/18 at 1140. This was updated in pt f/u appt's at this time. Pt to be updated in the am by this RN CM. Chris VENTURA CM Original Note: Addendum entered by Brandy Suresh 12/17/18 13:39: Pt will be discharged friday now per Dr. Pradhan, so message left with TRAN Munoz CM, that pt's appt will have to be cancelled and this RN CM will re-schedule for pt once CM calls back. This RN CM did reinforce with pt again the importance in f/u and caring for herself at home, pt became teary and voiced understanding. Pt states that she plans on quitting smoking for good this time and taking care of herself because she has custody of her 6yo grandson and she needs to be there for him. Pt states that she brought in her own bipap and that [facility] provided her with a mask and she was able to wear it successfully last pm and states 'I feel good.' Pt provided with names of local PCP's that are in-network as she states she may want to switch from Dr. Oreilly. Pt also provided with transportation resources at this time. Pt voices no further questions/concerns/needs at this time. Chris VENTURA CM Original Note: RN RICKY assessment: Face to Face with patient for initial transition planning/care coordination assessment. RN CM introduced self and role at [facility], pt voices understanding and consents to assessment at this time. Pt is sitting up in bed in no distress at this time. Pt does fall asleep frequently during assessment but awakens to verbal stimuli. Pt is A/Ox4 at this time and answers all questions appropriately at this time. Care providers, pharmacy, and demographics verified at this time. PCP: [facility] Specialists: Pt states currently has no specialists. [facility] Insurance: [facility] Prescription Benefit: [facility] Living Will/HPOA: Pt states does not have LW/HPOA at this time and declines AD info at this time. LNOK: Remedios Wallace, mother; Naveed Gordon, daughter Living Arrangements: Pt states lives with a friend in 2 story home and states no concerns at home at this time. Pt states is normally independent with ADL's at home. Transportation: Pt states daughter drives and states no transportation concerns at this time. DME/HHC: Pt states has bipap and home oxygen [place] [facility]. Pt states has not been compliant with bipap d/t broken mask and has only been wearing the oxygen at night. She also states that her 'tanks at home are empty.' She states she also has a shower chair. Call to Johana at [facility] and she states that pt's oxygen order is for 2liters at rest and 3 liters with activity. Johana also states that pt's insurance refused to pay for bipap d/t her non-compliance. She states that pt never returned bipap unit to [facility]. Johana states that pt will have to restart bipap order with a new script and F2F. Johana also states that pt has never called to advised that tanks are empty. Pt updated at this time and advised that she needs to call [facility] to refill tanks, voices understanding. This RN CM spoke with Ruby Shelby, Dr. Oreilly's CM, and updated her on all at this time, voices understanding. Per Ruby, pt has missed 7 of 9 appt's with their office in the last year or so. Pt also cancelled her sleep study in august of 2018 and has not re-scheduled since. This RN CM made pt a f/u appt with Dr. Oreilly on 12/18/18 at 1040. Pt updated on all at this time and this RN CM stressed the importance to pt on following through with appt's and contacting [facility] regarding tanks as well as getting sleep study completed. Pt also to be sent home on Eliquis at discharge and script previously [facility] to [facility]. Call to [facility] and they state Eliquis is a $0 co-pay for pt at this time. Dr. Pradhan aware at this time. Pt states no concerns with going home at time of discharge. Pt is unemployed and states has applied for disability. Pt states smokes 1pk/day and does not drink ETOH. Pt states no further questions/concerns/needs at this time. CM to follow for any further discharge planning/needs. Advised pt to ask for CM if any further questions/concerns/needs arise, voices understanding. Plan: Home [place] RN CM
[2018-12-16 11:56] LABS: Bedside Glucose 295 mg/dL (70-110)
[2018-12-16 12:26] LABS: Allen Test POS; Base Excess 11 mmol/L (-2 to +2); Bicarbonate 37.2 mmol/L (22-26); Blood Gas Specimen Type ART; O2 Delivery Device Nasal Can; PO2 65 mmHG (75-100); SITE R Brachial; SO2 89 % (95-99); Time Given 1200; Total Carbon Dioxide 39 mmol/L; pCO2 73.9 mmHg (35-45); pH 7.31 (7.35-7.45)
[2018-12-16] MEDS: Ketorolac 15 MG/ML Vial IV (15:02)
[2018-12-16 17:35] LABS: Bedside Glucose 404 mg/dL (70-110)
[2018-12-16 21:20] LABS: Bedside Glucose 424 mg/dL (70-110)
[2018-12-16] MEDS: Albuterol 2.5 MG/3 ML VIAL.NEB. INHALATION (22:58)
[2018-12-17] VITALS (14 sets, daily range): BP systolic 126–144; BP diastolic 71–87; PULSE 85–108; RESP 18–22; TEMP 36.1–36.8; O2SAT 92–97
[2018-12-17] MEDS: oxyCODONE 5 MG Tablet PO ×4 (02:05→21:21)
[2018-12-17] MEDS: BENZOCAINE/MENTHOL 1 LOZENGE 2 LOZENGE MUCOUS MEM (03:06)
--- NOTE | 2018-12-17 03:37 | CPS ---
pt on own bipap, with a new mask. pt more than compliant and happy to wear it all night.
[2018-12-17 06:24] LABS: Hematocrit 44.3 % (37-47); Hemoglobin 13.3 g/dl (12.0-15.0); Mean Corpuscular Hgb 28.4 pg (27.0-32.0); Mean Corpuscular Volume 94.7 fL (81-99); Mean Platelet Vol. 10.3 fl (6.2-12.0); Platelet Count 218 K/mm3 (150-450); RBC Distribution Width CV 15.8 % (11.6-14.6); RBC Distribution Width SD 52.8 fl (35.1-43.9); Red Blood Count 4.68 M/mm3 (4.2-5.4); White Blood Count 8.5 K/mm3 (4.4-11.0)
[2018-12-17 06:27] LABS: Scan Indicated on CBC? Y/N NO
[2018-12-17] MEDS: Gabapentin 400 MG Capsule PO ×3 (06:35→21:09)
[2018-12-17 06:45] LABS: Bedside Glucose 347 mg/dL (70-110)
[2018-12-17 06:47] LABS: Anion Gap 10 (5-15); BUN 19 mg/dL (7-18); Calcium,Total 8.6 mg/dL (8.5-10.1); Chloride 94 mmol/L (98-107); Creatinine, Serum 0.73 mg/dL (0.55-1.02); EST Glomerular Filtration Rate 93 mL/min (>60); Est Glom Filt Rate - Afr Amer 113 mL/min (>60); Estimated Creatinine Clearance 91.26 ml/min; Glucose 344 mg/dL (74-106); Potassium 3.9 mmol/L (3.5-5.1); Sodium Level 135 mmol/L (136-145)
[2018-12-17] MEDS: Ipratropium/Albuterol Sulfate 3 ML AMPUL.NEB INHALATION ×3 (06:48→19:07)
[2018-12-17] MEDS: Insulin Lispro 100 UNIT/ML INSULN.PEN 35 UNIT SC ×3 (08:35→16:26)
[2018-12-17] MEDS: Insulin Lispro 100 UNIT/ML INSULN.PEN SQ ×4 (08:36→21:12)
[2018-12-17] MEDS: Multivitamins,Therapeutic Tablet 1 TABLET PO (08:37)
[2018-12-17] MEDS: Aspirin 81 MG TAB.CHEW PO (08:37)
[2018-12-17] MEDS: Pantoprazole Sodium 40 MG Tablet PO (08:38)
[2018-12-17] MEDS: guaiFENesin 1,200 MG Tablet 1200 MG PO ×2 (08:38→21:10)
[2018-12-17] MEDS: Dicyclomine 10 MG Capsule 20 MG PO (08:38)
[2018-12-17] MEDS: Furosemide 80 MG Tablet PO ×2 (08:39→21:09)
[2018-12-17] MEDS: APIXABAN 5 MG TABLET 10 MG PO ×2 (08:39→21:09)
[2018-12-17] MEDS: hydroCHLOROthiazide 25 MG Tablet PO (08:40)
[2018-12-17] MEDS: Lisinopril 20 MG Tablet PO (08:41)
--- NOTE | 2018-12-17 08:50 | PN_ITS ---
Patient Problems: Active and Suspected Problems (Last Reviewed 12/15/18 @ 11:52 by Jersey Pradhan MD) CAP (community acquired pneumonia) (Acute) Subjective: Patient seen breathing less labored compared to the previous day. Glucose levels however remain uncontrolled Objective: GENERAL: Appears ill looking dyspneic at rest HEENT: Atraumatic; moist oral mucosa EYES; Anicteric, Normal Conjunctiva NECK; supple, normal thyroid, no distended JVD. RESPIRATORY: Diminished to auscultation bilaterally, CARDIOVASCULAR: Regular S1 S2, no audible murmurs GI: soft, non-tender, normoactive bowel sounds, : No Renal angle tenderness; EXTREMITIES: No edema, no clubbing, no cyanosis. MUSCULOSKELETAL: No Joint Tenderness; NEURO: Awake; no lateralizing signs. SKIN: No Rash PSYCH; flat affect Vitals/I&O's: Vital Signs Temp Pulse Resp BP Pulse Ox 97.5 F L 88 20 H 144/87 H 97 12/17/18 08:28 12/17/18 08:28 12/17/18 08:28 12/17/18 08:28 12/17/18 08:28 Oxygen Flow Rate (L/min) 4 Oxygen Delivery Method Nasal Cannula Weight: 149.685 kg Body Mass Index (BMI) 58.7 Finger Stick Blood Glucose 189 Intake and Output for Last 24 Hours 12/15/18 12/16/18 12/17/18 23:59 23:59 23:59 Intake Total 754.9 / 754.9 1592 / 1592 480 / 480 Output Total 4 / 4 Balance 754.9 / 754.9 1592 / 1592 476 / 476 Microbiology Past 72 Hours 12/15/18 15:50 Sputum, Expectorated/Coughed Gram Stain - Final 12/15/18 15:50 Sputum, Expectorated/Coughed Respiratory Culture - Preliminary Appears to be normal respiratory nando. Further studies to follow. 12/15/18 10:40 Mucosa - Nasopharyngeal Respiratory Panel (PCR) - Final 12/15/18 10:50 Urine, Clean Catch Streptococcus pneumoniae Antigen (M - Final 12/15/18 10:50 Urine, Clean Catch Legionella Antigen - Final 12/15/18 10:40 Mucosa - Nasopharyngeal Influenza Types A,B Direct FA (VIKTOR) - Final Laboratory Results 12/16/18 09:09: POC Glucose 375 H 12/16/18 11:49: POC Glucose 295 H 12/16/18 12:16: Specimen Type ART, Sample Site R Brachial, pH 7.31 L, Bicarbonate Actual 37.2 H, POC Total CO2 39, Base Excess 11 H, O2 Saturation 89 L, ABG pCO2 73.9 H*, ABG pO2 65 L, Meño Test POS, O2 Delivery Device Nasal Can, Liter Flow 4.0, Blood Gas Notified Whom ROSSY LORA, Blood Gas Notified Time 1200 12/16/18 17:13: POC Glucose 404 H 12/16/18 21:12: POC Glucose 424 H 12/17/18 05:50: WBC 8.5, RBC 4.68, Hgb 13.3, Hct 44.3, MCV 94.7, MCH 28.4, MCHC 30.0 L, RDW 15.8 H, RDW Differential 52.8 H, Plt Count 218, MPV 10.3 12/17/18 05:50: Sodium 135 L, Potassium 3.9, Chloride 94 L, Carbon Dioxide 31.0, Anion Gap 10, BUN 19 H, Creatinine 0.73, Estim Creat Clear Calc 91.26, Est GFR (MDRD) Af Amer 113, Est GFR (MDRD) Non-Af 93, BUN/Creatinine Ratio 26.0 H, Glucose 344 H, Calcium 8.6 12/17/18 06:39: POC Glucose 347 H Current Medications Acetaminophen (Tylenol) 650 mg PO Q4H PRN PRN PRN Reason: FEVER Al Hydroxide/Mg Hydroxide (Mylanta Ii) 30 ml PO Q6H PRN PRN PRN Reason: Gastric burning Albuterol Sulfate (Ventolin Aerosols) 2.5 mg INHALATION Q2H PRN PRN PRN Reason: SHORTNESS OF BREATH Last Admin: 12/16/18 22:58 Dose: 2.5 mg Albuterol/Ipratropium (Duoneb) 3 ml INHALATION Q6H.RT [facility] Last Admin: 12/17/18 06:48 Dose: 3 ml Apixaban (Eliquis) 10 mg PO BID [facility] Last Admin: 12/17/18 08:39 Dose: 10 mg Aspirin (Aspirin, Baby) 81 mg PO DAILY@0800 [facility] Last Admin: 12/17/18 08:37 Dose: 81 mg Buspirone HCl (Buspar) 15 mg PO TID PRN PRN Reason: ANXIETY Dextrose (D50w Syringe) 0 gm IV X1 PRN; Protocol PRN Reason: Hypoglycemia Dicyclomine HCl (Bentyl) 20 mg PO DAILY [facility] Last Admin: 12/17/18 08:38 Dose: 20 mg Furosemide (Lasix) 80 mg PO BID [facility] Last Admin: 12/17/18 08:39 Dose: 80 mg Gabapentin (Neurontin) 400 mg PO TID [facility] Last Admin: 12/17/18 06:35 Dose: 400 mg Glucagon () 1 mg IM .X1 PRN PRN Reason: Hypoglycemia Guaifenesin (Mucinex) 1,200 mg PO BID [facility] Last Admin: 12/17/18 08:38 Dose: 1,200 mg Guaifenesin/Phenyleph/Dextrometh (Robitussin Cf) 5 ml PO Q6H PRN PRN PRN Reason: COUGH Hydrochlorothiazide (Hctz) 25 mg PO DAILY [facility] Last Admin: 12/17/18 08:40 Dose: 25 mg Ceftriaxone Sodium (Rocephin) 1 gm in 50 mls @ 100 mls/hr IV Q24 [facility] Last Admin: 12/16/18 09:18 Dose: 100 mls/hr Azithromycin 500 mg/ Dextrose 255 mls @ 250 mls/hr IV Q24 [facility] Stop: 12/18/18 11:02 Last Admin: 12/16/18 11:12 Dose: 250 mls/hr Insulin Glargine (Lantus (Bkc)) 55 units SC BID [facility] Last Admin: 12/17/18 08:41 Dose: 55 units Insulin Human Lispro (Humalog Kwikpen (Bkc)) 35 unit SC 0800,1200,1700 [facility] Last Admin: 12/17/18 08:35 Dose: 35 units Insulin Human Lispro (Humalog Kwikpen (Bkc)) 0 unit SQ ACHS [facility]; Protocol Last Admin: 12/17/18 08:36 Dose: 12 u Ketorolac Tromethamine (Toradol) 15 mg IV Q6H PRN PRN PRN Reason: PAIN Stop: 12/21/18 12:55 Last Admin: 12/16/18 15:02 Dose: 15 mg Lisinopril (Zestril) 20 mg PO DAILY [facility] Last Admin: 12/17/18 08:41 Dose: 20 mg Loratadine (Claritin) 10 mg PO DAILY [facility] Magnesium Hydroxide (Milk Of Magnesia) 30 ml PO DAILY PRN PRN Reason: Constipation Multivitamins (Multivitamin) 1 tablet PO DAILY@0800 [facility] Last Admin: 12/17/18 08:37 Dose: 1 tablet Nicotine (Nicoderm Cq (Pbkc)) 21 mg TRANSDERM. DAILY [facility] Last Admin: 12/17/18 08:40 Dose: 21 mg Ondansetron HCl (Zofran) 4 mg IV Q8H PRN PRN PRN Reason: NAUSEA Oxycodone HCl (Oxyir) 5 mg PO Q4H PRN PRN PRN Reason: Moderate Pain (pain scale 4-5) Last Admin: 12/17/18 08:36 Dose: 5 mg Pantoprazole Sodium (Protonix) 40 mg PO DAILY [facility] Last Admin: 12/17/18 08:38 Dose: 40 mg Psyllium Hydrophilic Mucilloid (Metamucil) 1 packet PO DAILY PRN PRN PRN Reason: CONSTIPATION Sodium Chloride () 5 - 15 ml IV UD PRN PRN Reason: SALINE FLUSH Last Admin: 12/15/18 16:21 Dose: 10 ml Throat Lozenges (Cepacol Sore Throat Lozenge) 2 lozenge MUCOUS MEM Q2H PRN PRN PRN Reason: sore throat, cough Last Admin: 12/17/18 03:06 Dose: 2 lozenge Zolpidem Tartrate (Ambien (Generic)) 5 mg PO QHS PRN PRN PRN Reason: INSOMNIA Last Admin: 12/15/18 22:23 Dose: 5 mg Medical Necessity - Tobacco Use Smoking Status: Current every day smoker Assessment/Plan All Active Problems (Last Reviewed 12/15/18 @ 11:52 by Jersey Pradhan MD) Hidradenitis (Resolved) CAP (community acquired pneumonia) (Acute) Non-healing open wound of left groin (Resolved) Open wound of vulva with complication (Resolved) Necrotizing soft tissue infection (Resolved) Abscess of vulva (Resolved) Soft tissue abscess of inguinal region (Resolved) Cellulitis (Resolved) c section (Resolved) H/O arthroscopic knee surgery (Resolved) History of cholecystectomy (Resolved) Abscess (Resolved) History of MRSA infection (Resolved) NSTEMI (non-ST elevated myocardial infarction) (Resolved) Patient is a 43-year-old lady presented with progressive shortness of breath 1. Acute hypoxic and hypercapnic respiratory failure secondary to community- acquired pneumonia as well as acute pulmonary embolism. Has been managed intermittently on BiPAP. 2. Acute pulmonary embolism patient started on Eliquis echo ordered in addition to bilateral venous duplex 3. Pneumonia: Suspected to be secondary to streptococci pneumonia. Patient is admitted to regular floor. Blood and sputum cultures sent. Patient placed on Rocephin and Zithromax. She was also placed on oxygen titrated to keep also is greater than 90 7 cultures have so far remained negative to date. 4. Tobacco dependence counseled on cessation, offered nicotine patch for tobacco cravings 5. Diabetes mellitus type 2 6. Morbid obesity with BMI of 54.9 7. Hypertension-blood pressure controlled, home medications continued with dose adjustment as needed 8. Dyslipidemia-patient is on statin therapy, continued at home dose 9. Depression with anxiety 10. 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 11. DVT prophylaxis SC Lovenox Code Visit Inpatient E&M: 65276 Subs Hosp L2
[2018-12-17] MEDS: Ceftriaxone 1 GM/50 ML BAG IV (08:53)
[2018-12-17] MEDS: guaiFENesin CF 120 ML PO ×2 (08:54→21:26)
[2018-12-17] MEDS: Loratadine 10 MG Tablet PO (10:19)
--- NOTE | 2018-12-17 11:29 | VDLE_ITS ---
Reason For Study: PE RIGHT LEFT GSV is normal. GSV is normal. CFV is compressible, spontaneous, phasic, CFV is compressible, spontaneous, phasic, competent and demonstrates normal competent, and demonstrates normal augmentation. augmentation. FV is compressible, spontaneous, phasic, FV is compressible, spontaneous, phasic, competent and demonstrates normal competent and demonstrates normal augmentation. augmentation. POP V is compressible, spontaneous, phasic, POP V is compressible, spontaneous, phasic, competent and demonstrates normal competent and demonstrates normal augmentation. augmentation. T/P Trunk is compressible. T/P Trunk is compressible. PTV is compressible. PTV is compressible. RT PerV is compressible. LT PerV is compressible. Procedure Exam performed portable in patient room. Technically difficult due to body habitus. A preliminary report was called and/or faxed to [facility]. Interpretation Summary Deep veins of the lower extremities are bilaterally patent and compressible segmentally. There is no evidence of deep vein thrombosis on either side. Valvular competence appears intact within the proximal deep venous systems bilaterally. The greater saphenous veins appear bilaterally patent and compressible segmentally. Ordering Physician: Jersey Pradhan Referring Physician: Eleuterio Oreilly Performed By: Elif Moody RVT
[2018-12-17 11:51] LABS: Bedside Glucose 370 mg/dL (70-110)
[2018-12-17 16:31] LABS: Bedside Glucose 315 mg/dL (70-110)
[2018-12-17 21:20] LABS: Bedside Glucose 360 mg/dL (70-110)
[2018-12-17] MEDS: Albuterol 2.5 MG/3 ML VIAL.NEB. INHALATION (22:23)
[2018-12-18] MEDS: Ketorolac 15 MG/ML Vial IV (02:21)
[2018-12-18] MEDS: 0.9% NaCl Peripheral Flush Adult/Peds IV ×2 (02:21→02:23)
[2018-12-18 03:00] VITALS: PULSE 99
[2018-12-18 03:27] VITALS: BP 144/77; PULSE 90; RESP 18; TEMP 36.6; O2SAT 94
[2018-12-18] MEDS: Gabapentin 400 MG Capsule PO (06:48)
[2018-12-18 06:59] LABS: Anion Gap 8 (5-15); BUN 21 mg/dL (7-18); BUN/Creat Ratio 27.8 RATIO (10-20); Calcium,Total 8.7 mg/dL (8.5-10.1); Chloride 92 mmol/L (98-107); Creatinine, Serum 0.76 mg/dL (0.55-1.02); EST Glomerular Filtration Rate 90 mL/min (>60); Est Glom Filt Rate - Afr Amer 108 mL/min (>60); Estimated Creatinine Clearance 87.66 ml/min; Glucose 294 mg/dL (74-106); Sodium Level 137 mmol/L (136-145)
[2018-12-18 07:01] LABS: Bedside Glucose 281 mg/dL (70-110)
[2018-12-18 07:07] VITALS: PULSE 90
[2018-12-18 07:15] VITALS: PULSE 88; RESP 22; O2SAT 98
[2018-12-18] MEDS: Ipratropium/Albuterol Sulfate 3 ML AMPUL.NEB INHALATION (07:15)
[2018-12-18] MEDS: Insulin Lispro 100 UNIT/ML INSULN.PEN 35 UNIT SC ×2 (08:23→12:32)
[2018-12-18] MEDS: Insulin Lispro 100 UNIT/ML INSULN.PEN SQ ×2 (08:23→12:33)
[2018-12-18] MEDS: Aspirin 81 MG TAB.CHEW PO (08:27)
[2018-12-18] MEDS: Multivitamins,Therapeutic Tablet 1 TABLET PO (08:27)
[2018-12-18] MEDS: Dicyclomine 10 MG Capsule 20 MG PO (08:28)
[2018-12-18] MEDS: Loratadine 10 MG Tablet PO (08:28)
[2018-12-18] MEDS: APIXABAN 5 MG TABLET 10 MG PO (08:29)
[2018-12-18] MEDS: hydroCHLOROthiazide 25 MG Tablet PO (08:29)
[2018-12-18 08:30] VITALS: BP 139/86; PULSE 90; RESP 16; TEMP 36.8; O2SAT 96
[2018-12-18] MEDS: Lisinopril 20 MG Tablet PO (08:30)
[2018-12-18] MEDS: guaiFENesin 1,200 MG Tablet 1200 MG PO (08:30)
[2018-12-18] MEDS: Pantoprazole Sodium 40 MG Tablet PO (08:30)
[2018-12-18] MEDS: Furosemide 80 MG Tablet PO (08:30)
[2018-12-18] MEDS: oxyCODONE 5 MG Tablet PO (08:43)
--- NOTE | 2018-12-18 09:45 | CASEMGMT ---
Addendum entered by Brandy Suresh 12/18/18 13:32: Per Kimber VENTURA, pt has an outstanding bill with [facility] and they will not give her the nebulizer until the bill is paid and pt would like nebulizer script sent somewhere else at this time. Nebulizer script now sent to [facility] as pt gets her scripts filled there. Pt updated at this time and voices understanding. Pt has been discharged and is in wheelchair and being prepared to be taken down to car. Pt voices concern about getting new tanks d/t outstanding bill. Call to Johana at [facility] and she states pt has tank delivery scheduled for next week and that there should be no concerns with pt getting those. Johana also advised that nebulizer was sent to [facility] at this time, voices understanding. This RN CM advised pt prior to leaving that this RN CM would call her if there were any concerns with getting tanks or nebulizer, pt voiced understanding. Pt and family also reminded of physician appt friday12/21/18 at 1140, all voice understanding. Pt voiced no further questions/concerns/needs at that time. Chris VENTURA CM Original Note: Script obtained for nebulizer at this time and faxed to [facility], as pt has oxygen set up through [facility]. Johana notified that referral was faxed, voices understanding. Chris VENTURA CM
--- NOTE | 2018-12-18 09:49 | PCM.DC ---
- Discharge Diagnoses Current Active Problems: Current Active and Chronic Problems (Last Reviewed 12/15/18 @ 11:52 by Jersey Pradhan MD) CAP (community acquired pneumonia) (Acute) You will use the following diet at home:: Calorie/Carbohydrate Controlled (specify 1200, 1400, etc) - 1800 Your food should be the consistency of: Regular Discharge Activity: Return to Normal Activity, May not drive while taking narcotic pain medications. Allergies/Adverse Reactions: Allergies cyclobenzaprine HCl [From Flexeril] Allergy (Verified 12/15/18 09:21) Hives venlafaxine [From Effexor] Adverse Reaction (Severe, Verified 12/15/18 09:21) unknown Medications to take at Discharge Buspirone HCl [Buspar] 5 mg PO BID PRN 09/29/13 Lisinopril [Zestril] 20 mg PO DAILY 09/29/13 Hydrochlorothiazide [Hctz] 25 mg PO DAILY 02/02/17 Aspirin [Aspirin, Baby] 81 mg PO DAILY 03/26/17 Multivit,Calc,Mins/Iron/Folic [Women's Daily Formula Caplet] 1 ea PO DAILY 03/26/17 [place]-3 Fatty Acids [[place]-3] 1,000 mg PO DAILY 03/26/17 Gabapentin [Neurontin] 400 mg PO TID 05/29/17 Oxygen, Home [Home Oxygen] 2 - 3 lpm NASAL DAILY #1 unit 09/13/17 B12/Levomefolate Calcium/B-6 [Folbic Rf Tablet] 1 ea PO DAILY 10/07/17 Dicyclomine HCl [Bentyl] 20 mg PO DAILY 10/07/17 Insulin Aspart [Novolog Flexpen] 35 units SC TIDCM #0 10/08/17 Compression Socks, Medium [Futuro Restoring] 1 ea MC DAILY #1 ea 02/28/18 Ibuprofen 800 mg PO 4X/DAY PRN PRN 06/07/18 Dulaglutide [Trulicity] 0.5 ml SQ QWEEK MDD 0.5ml 06/08/18 Insulin Glargine [Lantus SoloStar Pen] 55 units SC BID #5 pen 06/10/18 Furosemide 40 mg PO BID 12/15/18 Omeprazole 40 mg PO DAILY 12/15/18 Albuterol Aerosols [Ventolin Aerosols] 2.5 mg INHALATION Q2H PRN PRN #30 vial.neb. 12/18/18 Apixaban [Eliquis] 5 mg PO BID #120 tablet 12/18/18 Guaifenesin Dm [Robitussin Dm] 10 ml PO Q4H #300 ml 12/18/18 Loratadine [Claritin] 10 mg PO DAILY #30 tablet 12/18/18 Nicotine [Nicoderm Cq] 21 mg TRANSDERM. DAILY #30 patch 12/18/18 The following prescriptions were given: Albuterol Aerosols [Ventolin Aerosols] 2.5 mg INHALATION Q2H PRN PRN #30 vial.neb. PRN Reason: SHORTNESS OF BREATH Apixaban [Eliquis] 5 mg PO BID #120 tablet Guaifenesin Dm [Robitussin Dm] 10 ml PO Q4H #300 ml Loratadine [Claritin] 10 mg PO DAILY #30 tablet Nicotine [Nicoderm Cq] 21 mg TRANSDERM. DAILY #30 patch Primary Care Physician: Tino Oreilly MD [Primary Care Provider] - Test Results: Test results from this visit will be discussed in further detail at your follow-up appointment, if applicable. Please Follow Up With: Tino Oreilly MD When: Friday Please Follow Up With: LILI Ramos Please Follow Up With: Berlin Dumont MD When: in 1-2 weeks Proposed Discharge Date: 12/18/18
--- NOTE | 2018-12-18 09:51 | PCM.DC.SUM ---
Discharge Date and Diagnosis - Problem List Patient Problems: Active and Suspected Problems (Last Reviewed 12/15/18 @ 11:52 by Jersey Pradhan MD) Pulmonary embolism (Acute) CAP (community acquired pneumonia) (Acute) Date of Admission: 12/15/18 Date of Discharge: 12/18/18 - Primary Discharge Diagnosis Active and Suspected Problems (Last Reviewed 12/15/18 @ 11:52 by Jersey Pradhan MD) Pulmonary embolism (Acute) CAP (community acquired pneumonia) (Acute) - Secondary Discharge Diagnosis Chronic Problems (Last Reviewed 12/15/18 @ 11:52 by Jersey Pradhan MD) Hyperglycemia (Chronic) Respiratory failure with hypoxia (Chronic) Hypertension (Chronic) 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 (Chronic) / cmH20 Anxiety (Chronic) Diabetes mellitus (Chronic) Morbid obesity (Chronic) Hyperlipidemia (Chronic) Tobacco abuse (Chronic) Hyperglycemia due to type 2 diabetes mellitus (Chronic) Hospital Course and Treatment Imaging Results: Clinical Impression(s) from Imaging Studies Chest X-Ray 12/15/18 09:28 IMPRESSION: Right upper lobe infiltrate. Increased markings in the right midlung. Follow-up is recommended. Electronically Signed: Dylan Gan MD at 10:29 EST Tel [phone], Service support , Chest CTA 12/15/18 13:09 IMPRESSION: Multiple nonocclusive intraluminal filling defects in the upper lobe pulmonary arterial branches and cuboid. Pulmonary emboli. Areas of groundglass appearance in the right upper lobe and right middle lobe with a finding suggestive of atelectasis and/or infiltrates in both lower lobes. Electronically Signed: Dylan Gan MD at 14:37 EST Tel [phone], Service support , Operations: None, - - incision and drainage of left groin abscess Summary of Care Provided: Patient is a 43-year-old lady presented with progressive shortness of breath 1. Acute hypoxic and hypercapnic respiratory failure secondary to community-acquired pneumonia as well as acute pulmonary embolism. Was been managed intermittently on BiPAP. 2. Acute pulmonary embolism patient started on Eliquis echo ordered in addition to bilateral venous duplex bilateral venous duplex came back negative 3. Pneumonia: Suspected to be secondary to streptococci pneumonia. Patient is admitted to regular floor. Blood and sputum cultures sent. Patient placed on Rocephin and Zithromax. She was also placed on oxygen titrated to keep also is greater than 90; Cultures remained negative to date. 4. Tobacco dependence counseled on cessation, offered nicotine patch for tobacco cravings 5. Diabetes mellitus type 2 6. Morbid obesity with BMI of 54.9 7. Hypertension-blood pressure controlled, home medications continued with dose adjustment as needed 8. Dyslipidemia-patient is on statin therapy, continued at home dose 9. Depression with anxiety 10. 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 11. DVT prophylaxis SC Lovenox Patient Problems: Active and Suspected Problems (Last Reviewed 12/15/18 @ 11:52 by Jersey Pradhan MD) Pulmonary embolism (Acute) CAP (community acquired pneumonia) (Acute) Objective: GENERAL: Cooperative HEENT: Atraumatic; moist oral mucosa EYES; Anicteric, Normal Conjunctiva NECK; supple, normal thyroid, no distended JVD. RESPIRATORY: Diminished to auscultation bilaterally, CARDIOVASCULAR: Regular S1 S2, no audible murmurs GI: soft, non-tender, normoactive bowel sounds, : No Renal angle tenderness; EXTREMITIES: No edema, no clubbing, no cyanosis. MUSCULOSKELETAL: No Joint Tenderness; NEURO: Awake; no lateralizing signs. SKIN: No Rash PSYCH; flat affect - Physical Exam Vital Signs Temp Pulse Resp BP Pulse Ox 97.8 F 88 22 H 144/77 H 98 12/18/18 03:27 12/18/18 07:15 12/18/18 07:15 12/18/18 03:27 12/18/18 07:15 Oxygen Flow Rate (L/min) 4 Oxygen Delivery Method Nasal Cannula Weight: 149.685 kg Body Mass Index (BMI) 58.7 Finger Stick Blood Glucose 189 Intake and Output for Last 24 Hours 12/16/18 12/17/18 12/18/18 23:59 23:59 23:59 Intake Total 1592 / 1592 1898 / 1898 120 / 120 Output Total 4 / 4 Balance 1592 / 1592 1894 / 1894 120 / 120 Microbiology Past 72 Hours 12/15/18 15:50 Gram Stain - Final Sputum, Expectorated/Coughed Respiratory Culture - Final 12/15/18 10:50 Urine Culture - Final Urine, Clean Catch Culture exhibits no growth. 12/15/18 10:05 Blood Culture - Preliminary Blood Culture (Wb) - No Site/Description Given No growth in 48 hours. 12/15/18 09:55 Blood Culture - Preliminary Blood Culture (Wb) - Anticubital Left No growth in 48 hours. 12/15/18 10:40 Respiratory Panel (PCR) - Final Mucosa - Nasopharyngeal 12/15/18 10:50 Streptococcus pneumoniae Antigen (M - Final Urine, Clean Catch 12/15/18 10:50 Legionella Antigen - Final Urine, Clean Catch 12/15/18 10:40 Influenza Types A,B Direct FA (VIKTOR) - Final Mucosa - Nasopharyngeal Laboratory Tests Past 24 Hrs 12/18/18 05:57 Sodium 137 Potassium 4.0 Chloride 92 L Carbon Dioxide 37.0 H Anion Gap 8 BUN 21 H Creatinine 0.76 Estim Creat Clear Calc 87.66 Est GFR (MDRD) Af Amer 108 Est GFR (MDRD) Non-Af 90 BUN/Creatinine Ratio 27.8 H Glucose 294 H Calcium 8.7 POC Glucose 12/18/18 12/17/18 12/17/18 06:52 21:05 16:25 POC Glucose 281 H 360 H 315 H 12/17/18 11:42 POC Glucose 370 H Discharge Diet: 1800 Calorie Control Diet Discharge Activity: Return to Normal Activity, May not drive while taking narcotic pain medications. Home Medications: Medications to take at Discharge Buspirone HCl [Buspar] 5 mg PO BID PRN 09/29/13 Lisinopril [Zestril] 20 mg PO DAILY 09/29/13 Hydrochlorothiazide [Hctz] 25 mg PO DAILY 02/02/17 Aspirin [Aspirin, Baby] 81 mg PO DAILY 03/26/17 Multivit,Calc,Mins/Iron/Folic [Women's Daily Formula Caplet] 1 ea PO DAILY 03/26/17 [place]-3 Fatty Acids [[place]-3] 1,000 mg PO DAILY 03/26/17 Gabapentin [Neurontin] 400 mg PO TID 05/29/17 Oxygen, Home [Home Oxygen] 2 - 3 lpm NASAL DAILY #1 unit 09/13/17 B12/Levomefolate Calcium/B-6 [Folbic Rf Tablet] 1 ea PO DAILY 10/07/17 Dicyclomine HCl [Bentyl] 20 mg PO DAILY 10/07/17 Insulin Aspart [Novolog Flexpen] 35 units SC TIDCM #0 10/08/17 Compression Socks, Medium [Futuro Restoring] 1 ea MC DAILY #1 ea 02/28/18 Ibuprofen 800 mg PO 4X/DAY PRN PRN 06/07/18 Dulaglutide [Trulicity] 0.5 ml SQ QWEEK MDD 0.5ml 06/08/18 Insulin Glargine [Lantus SoloStar Pen] 55 units SC BID #5 pen 06/10/18 Furosemide 40 mg PO BID 12/15/18 Omeprazole 40 mg PO DAILY 12/15/18 Albuterol Aerosols [Ventolin Aerosols] 2.5 mg INHALATION Q2H PRN PRN #30 vial.neb. 12/18/18 Apixaban [Eliquis] 5 mg PO BID #120 tablet 12/18/18 Guaifenesin Dm [Robitussin Dm] 10 ml PO Q4H #300 ml 12/18/18 Loratadine [Claritin] 10 mg PO DAILY #30 tablet 12/18/18 Nicotine [Nicoderm Cq] 21 mg TRANSDERM. DAILY #30 patch 12/18/18 Following Prescrptions Were Given to Patient: Albuterol Aerosols [Ventolin Aerosols] 2.5 mg INHALATION Q2H PRN PRN #30 vial.neb. PRN Reason: SHORTNESS OF BREATH Apixaban [Eliquis] 5 mg PO BID #120 tablet Guaifenesin Dm [Robitussin Dm] 10 ml PO Q4H #300 ml Loratadine [Claritin] 10 mg PO DAILY #30 tablet Nicotine [Nicoderm Cq] 21 mg TRANSDERM. DAILY #30 patch Primary Care Physician: Tino Oreilly MD [Primary Care Provider] - Please Follow Up With: Tino Oreilly MD When: Friday Please Follow Up With: LILI Ramos Please Follow Up With: Berlin Dumont MD When: in 1-2 weeks Disposition: Home Minutes spent on discharge:: 38 Patient Condition:: Stable Medical Necessity - Tobacco Use Smoking Status: Current every day smoker Tobacco Use: Cigarettes Meaningful Use Info Meaningful Use Diagnoses (Choose all that apply): VTE - VTE Anticoag overlap given w/in hospital stay or rx'd at tx?: No Pt receive overlap for 5 days?: No Reason overlap not ordered, prescribed, or given for 5 days: Treatment Not Indicated Code Visit Inpatient E&M: 91355 Disch Hosp
--- NOTE | 2018-12-18 09:55 | DS.PCM_ITS ---
Discharge Date and Diagnosis - Problem List Patient Problems: Active and Suspected Problems (Last Reviewed 12/15/18 @ 11:52 by Jersey Pradhan MD) Pulmonary embolism (Acute) CAP (community acquired pneumonia) (Acute) Date of Admission: 12/15/18 Date of Discharge: 12/18/18 - Primary Discharge Diagnosis Active and Suspected Problems (Last Reviewed 12/15/18 @ 11:52 by Jersey Pradhan MD) Pulmonary embolism (Acute) CAP (community acquired pneumonia) (Acute) - Secondary Discharge Diagnosis Chronic Problems (Last Reviewed 12/15/18 @ 11:52 by Jersey Pradhan MD) Hyperglycemia (Chronic) Respiratory failure with hypoxia (Chronic) Hypertension (Chronic) 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 (Chronic) / cmH20 Anxiety (Chronic) Diabetes mellitus (Chronic) Morbid obesity (Chronic) Hyperlipidemia (Chronic) Tobacco abuse (Chronic) Hyperglycemia due to type 2 diabetes mellitus (Chronic) Hospital Course and Treatment Imaging Results: Clinical Impression(s) from Imaging Studies Chest X-Ray 12/15/18 09:28 IMPRESSION: Right upper lobe infiltrate. Increased markings in the right midlung. Follow-up is recommended. Electronically Signed: Dylan Gan MD at 10:29 EST Tel [phone], Service support , Chest CTA 12/15/18 13:09 IMPRESSION: Multiple nonocclusive intraluminal filling defects in the upper lobe pulmonary arterial branches and cuboid. Pulmonary emboli. Areas of groundglass appearance in the right upper lobe and right middle lobe with a finding suggestive of atelectasis and/or infiltrates in both lower lobes. Electronically Signed: Dylan Gan MD at 14:37 EST Tel [phone], Service support , Operations: None, - - incision and drainage of left groin abscess Summary of Care Provided: Patient is a 43-year-old lady presented with progressive shortness of breath 1. Acute hypoxic and hypercapnic respiratory failure secondary to community- acquired pneumonia as well as acute pulmonary embolism. Was been managed intermittently on BiPAP. 2. Acute pulmonary embolism patient started on Eliquis echo ordered in addition to bilateral venous duplex bilateral venous duplex came back negative 3. Pneumonia: Suspected to be secondary to streptococci pneumonia. Patient is admitted to regular floor. Blood and sputum cultures sent. Patient placed on Rocephin and Zithromax. She was also placed on oxygen titrated to keep also is greater than 90; Cultures remained negative to date. 4. Tobacco dependence counseled on cessation, offered nicotine patch for tobacco cravings 5. Diabetes mellitus type 2 6. Morbid obesity with BMI of 54.9 7. Hypertension-blood pressure controlled, home medications continued with dose adjustment as needed 8. Dyslipidemia-patient is on statin therapy, continued at home dose 9. Depression with anxiety 10. 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 11. DVT prophylaxis SC Lovenox Patient Problems: Active and Suspected Problems (Last Reviewed 12/15/18 @ 11:52 by Jersey Pradhan MD) Pulmonary embolism (Acute) CAP (community acquired pneumonia) (Acute) Objective: GENERAL: Cooperative HEENT: Atraumatic; moist oral mucosa EYES; Anicteric, Normal Conjunctiva NECK; supple, normal thyroid, no distended JVD. RESPIRATORY: Diminished to auscultation bilaterally, CARDIOVASCULAR: Regular S1 S2, no audible murmurs GI: soft, non-tender, normoactive bowel sounds, : No Renal angle tenderness; EXTREMITIES: No edema, no clubbing, no cyanosis. MUSCULOSKELETAL: No Joint Tenderness; NEURO: Awake; no lateralizing signs. SKIN: No Rash PSYCH; flat affect - Physical Exam Vital Signs Temp Pulse Resp BP Pulse Ox 97.8 F 88 22 H 144/77 H 98 12/18/18 03:27 12/18/18 07:15 12/18/18 07:15 12/18/18 03:27 12/18/18 07:15 Oxygen Flow Rate (L/min) 4 Oxygen Delivery Method Nasal Cannula Weight: 149.685 kg Body Mass Index (BMI) 58.7 Finger Stick Blood Glucose 189 Intake and Output for Last 24 Hours 12/16/18 12/17/18 12/18/18 23:59 23:59 23:59 Intake Total 1592 / 1592 1898 / 1898 120 / 120 Output Total 4 / 4 Balance 1592 / 1592 1894 / 1894 120 / 120 Microbiology Past 72 Hours 12/15/18 15:50 Gram Stain - Final Sputum, Expectorated/Coughed Respiratory Culture - Final 12/15/18 10:50 Urine Culture - Final Urine, Clean Catch Culture exhibits no growth. 12/15/18 10:05 Blood Culture - Preliminary Blood Culture (Wb) - No Site/Description Given No growth in 48 hours. 12/15/18 09:55 Blood Culture - Preliminary Blood Culture (Wb) - Anticubital Left No growth in 48 hours. 12/15/18 10:40 Respiratory Panel (PCR) - Final Mucosa - Nasopharyngeal 12/15/18 10:50 Streptococcus pneumoniae Antigen (M - Final Urine, Clean Catch 12/15/18 10:50 Legionella Antigen - Final Urine, Clean Catch 12/15/18 10:40 Influenza Types A,B Direct FA (VIKTOR) - Final Mucosa - Nasopharyngeal Laboratory Tests Past 24 Hrs 12/18/18 05:57 Sodium 137 Potassium 4.0 Chloride 92 L Carbon Dioxide 37.0 H Anion Gap 8 BUN 21 H Creatinine 0.76 Estim Creat Clear Calc 87.66 Est GFR (MDRD) Af Amer 108 Est GFR (MDRD) Non-Af 90 BUN/Creatinine Ratio 27.8 H Glucose 294 H Calcium 8.7 POC Glucose 12/18/18 12/17/18 12/17/18 06:52 21:05 16:25 POC Glucose 281 H 360 H 315 H 12/17/18 11:42 POC Glucose 370 H Discharge Diet: 1800 Calorie Control Diet Discharge Activity: Return to Normal Activity, May not drive while taking narcotic pain medications. Home Medications: Medications to take at Discharge Buspirone HCl [Buspar] 5 mg PO BID PRN 09/29/13 Lisinopril [Zestril] 20 mg PO DAILY 09/29/13 Hydrochlorothiazide [Hctz] 25 mg PO DAILY 02/02/17 Aspirin [Aspirin, Baby] 81 mg PO DAILY 03/26/17 Multivit,Calc,Mins/Iron/Folic [Women's Daily Formula Caplet] 1 ea PO DAILY 03/26/17 [place]-3 Fatty Acids [[place]-3] 1,000 mg PO DAILY 03/26/17 Gabapentin [Neurontin] 400 mg PO TID 05/29/17 Oxygen, Home [Home Oxygen] 2 - 3 lpm NASAL DAILY #1 unit 09/13/17 B12/Levomefolate Calcium/B-6 [Folbic Rf Tablet] 1 ea PO DAILY 10/07/17 Dicyclomine HCl [Bentyl] 20 mg PO DAILY 10/07/17 Insulin Aspart [Novolog Flexpen] 35 units SC TIDCM #0 10/08/17 Compression Socks, Medium [Futuro Restoring] 1 ea MC DAILY #1 ea 02/28/18 Ibuprofen 800 mg PO 4X/DAY PRN PRN 06/07/18 Dulaglutide [Trulicity] 0.5 ml SQ QWEEK MDD 0.5ml 06/08/18 Insulin Glargine [Lantus SoloStar Pen] 55 units SC BID #5 pen 06/10/18 Furosemide 40 mg PO BID 12/15/18 Omeprazole 40 mg PO DAILY 12/15/18 Albuterol Aerosols [Ventolin Aerosols] 2.5 mg INHALATION Q2H PRN PRN #30 vial.neb. 12/18/18 Apixaban [Eliquis] 5 mg PO BID #120 tablet 12/18/18 Guaifenesin Dm [Robitussin Dm] 10 ml PO Q4H #300 ml 12/18/18 Loratadine [Claritin] 10 mg PO DAILY #30 tablet 12/18/18 Nicotine [Nicoderm Cq] 21 mg TRANSDERM. DAILY #30 patch 12/18/18 Following Prescrptions Were Given to Patient: Albuterol Aerosols [Ventolin Aerosols] 2.5 mg INHALATION Q2H PRN PRN #30 vial.neb. PRN Reason: SHORTNESS OF BREATH Apixaban [Eliquis] 5 mg PO BID #120 tablet Guaifenesin Dm [Robitussin Dm] 10 ml PO Q4H #300 ml Loratadine [Claritin] 10 mg PO DAILY #30 tablet Nicotine [Nicoderm Cq] 21 mg TRANSDERM. DAILY #30 patch Primary Care Physician: Tino Oreilly MD [Primary Care Provider] - Please Follow Up With: Tino Oreilly MD When: Friday Please Follow Up With: LILI Ramos Please Follow Up With: Berlin Dumont MD When: in 1-2 weeks Disposition: Home Minutes spent on discharge:: 38 Patient Condition:: Stable Medical Necessity - Tobacco Use Smoking Status: Current every day smoker Tobacco Use: Cigarettes Meaningful Use Info Meaningful Use Diagnoses (Choose all that apply): VTE - VTE Anticoag overlap given w/in hospital stay or rx'd at nv?: No Pt receive overlap for 5 days?: No Reason overlap not ordered, prescribed, or given for 5 days: Treatment Not Indicated Code Visit Inpatient E&M: 06937 Disch Hosp
[2018-12-18] MEDS: Ceftriaxone 1 GM/50 ML BAG IV (10:18)
[2018-12-18 11:46] LABS: Bedside Glucose 353 mg/dL (70-110)
--- NOTE | 2018-12-21 14:30 | CASEMGMT ---
[facility] DC PHONE CALL DC DATE: 12/18/18 DC DISPOSITION: HOME LACE/STRATA 13/03 Attempted call to listed phone. No answer, however message left with call back information if questions arise. Wayne SIMPSON RN AC
== END 2018-12-18 13:15 | disposition home or self-care (01) | DRG 134 ==
LOC: ED 09:41 → PCU 11:45
PROVIDERS: Family Medicine; Admitting Provider Internal Medicine; Emergency Provider Emergency Medicine; Family Provider Family Medicine; PCP Family Medicine; Referring Provider Internal Medicine; Visit Provider Internal Medicine
DX: I26.99 Other pulmonary embolism without acute cor pulmonale (principal); J96.01 Acute respiratory failure with hypoxia; Z68.43 Body mass index [BMI] 50.0-59.9, adult; J18.9 Pneumonia, unspecified organism; E66.01 Morbid (severe) obesity due to excess calories; J96.02 Acute respiratory failure with hypercapnia; E11.65 Type 2 diabetes mellitus with hyperglycemia; Z23 Encounter for immunization; G47.33 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 (adult) (pediatric); I10 Essential (primary) hypertension; F41.8 Other specified anxiety disorders; Z79.4 Long term (current) use of insulin; E78.5 Hyperlipidemia, unspecified; F17.210 Nicotine dependence, cigarettes, uncomplicated; E11.9 Type 2 diabetes mellitus without complications
CPT/HCPCS: 36415; 36600; 71045; 71275; 80048; 80053; 81001; 82803; 82962; 83036; 83605; 83880; 84484; 84703; 85025; 85027; 85379; 85610; 85730; 87040; 87070; 87086; 87205; 87449; 87633; 87804; 93005; 93970; 94002; 94640; 97803; 99251; 99284; 99406; J7030; Q9967; 90686; A4216; G0463

== ENCOUNTER 2019-01-02 08:45 | Emergency (ER) | payer MEDICAID, SELFPAY ==
[2018-12-31 08:40] VITALS: BMI 59.3
[2019-01-02 08:47] VITALS: BP 154/98; PULSE 101; RESP 24; TEMP 36.6; O2SAT 90; BMI 54.9
--- NOTE | 2019-01-02 09:18 | VDUE_ITS ---
Reason For Study: SWELLING Right Proximal Right jugular vein is spontaneous, widely patent, phasic, with no intraluminal echogenicity noted. Right subclavian vein is spontaneous, widely patent, phasic, with no intraluminal echogenicity noted. Right Lower Arm Right radial vein is compressible. Right ulnar vein is compressible. Right Arm Right axillary vein is spontaneous, patent, phasic, competent, compressible and demonstrates augmentation. Right brachial vein is compressible. Right cephalic vein is compressible. Right basilic vein is compressible. Interpretation Summary Deep veins of the right upper extremity are patent and compressible segmentally. There is no evidence of deep vein thrombosis. The superficial veins of the right upper extremity, the basilic and cephalic veins, are patent and compressible. There is no evidence of right upper extremity superficial thrombophlebitis involving the veins imaged. Ordering Physician: Rebecca Wagner Referring Physician: PANFILO PRECIADO Performed By: Laurel Mayfield, ANETA, RVT ?
--- NOTE | 2019-01-02 09:34 | ED.RN ---
VASCULAR CALLED AND SAID IT WOULD BE AN HOUR OR TWO BEFORE SHE GOT HERE.
--- NOTE | 2019-01-02 12:38 | ED.DCSUM_ITS ---
- ER Visit Summary Date of Service: 01/02/19 Chief Complaint: [Right arm pain] History of Present Illness: The patient is a 43 F [presents the emergency department complaint of right arm pain that started this morning when she woke up. Patient also noticed swelling to her hand. Patient is concerned because she was diagnosed with right-sided PEs 3 weeks ago. Patient has been taking her Eliquis regularly. She denies any chest pain or shortness of breath. Patient denies any trauma to her arm. She is not sure if she may have slept wrong on it. Patient also does have a history of neuropathy. Patient has chronic pain in both feet.] Physical Examination: [HEENT-PERRLA, EOMI. Cranial nerves II through XII grossly intact. TMs clear. Mucous membranes moist. No adenopathy. Cardiovascular-regular rate and rhythm without murmur or ectopy Lungs-clear to auscultation, chest wall stable without crepitus or subcu emphysema Abdomen-normoactive bowel sounds, soft, nontender, no rebound or rigidity, no peritoneal signs. Extremities-intact ?4, normal range of motion, normal pulses, atraumatic. Right arm-patient does have some edema of the fingers noted in the hand on the right compared to the left. No significant edema of the forearm or upper arm noted. Patient complains of pain from the elbow down to the hand. Patient has normal pulses and normal cap refill. She has normal range of motion of all digits.] Test Results: [Venous duplex of the right upper extremity obtained was negative for DVT] Emergency Department Course and Treatment: [] Treatment Plan: [Patient will be given a prescription for [place] for pain and advised to keep the right arm elevated. Patient to follow-up with her primary care physician and also will give referral to pain management regarding her george ropathy] Disposition: [Discharged home in stable condition] Impression: [Right arm pain-etiology uncertain] This note was generated with [employer] dictation software. It may contain incorrect words, spelling, and punctuation that were not noted in review of the chart prior to signing ED Disposition - Plan for ED Patient: Referrals: Tino Oreilly MD [Primary Care Provider] -
--- NOTE | 2019-01-02 12:38 | ED.DEP ---
ED Disposition - Plan for ED Patient: Prescriptions: Hydrocodone Bitart/Apap 5-325 [[place] 5MG-325MG] 1 tab PO Q4H PRN PRN 2 Days #10 tab PRN Reason: Pain Referrals: Tino Oreilly MD [Primary Care Provider] - 3-5 Days Quang Ross MD [STAFF PHYSICIAN] - 3-5 Days Additional Instructions: Reason for your arm pain and swelling is unclear
[2019-01-02 12:46] VITALS: BP 109/74; PULSE 82; RESP 16; O2SAT 98
== END 2019-01-02 12:48 | disposition home or self-care (01) ==
PROVIDERS: Emergency Provider Emergency Medicine; Family Provider Family Medicine; PCP Family Medicine
DX: M79.601 Pain in right arm (principal); M79.89 Other specified soft tissue disorders; E11.40 Type 2 diabetes mellitus with diabetic neuropathy, unspecified; G89.29 Other chronic pain; I10 Essential (primary) hypertension; Z86.711 Personal history of pulmonary embolism; Z87.891 Personal history of nicotine dependence; Z79.01 Long term (current) use of anticoagulants; Z79.82 Long term (current) use of aspirin; Z79.4 Long term (current) use of insulin; Z79.899 Other long term (current) drug therapy
CPT/HCPCS: 93971; 99282

== ENCOUNTER 2019-01-04 21:10 | Observation (INO) | payer MEDICAID, SELFPAY ==
[2019-01-04 21:11] VITALS: PULSE 93; RESP 22; TEMP 36.8; O2SAT 93; BMI 56.5
--- NOTE | 2019-01-04 21:47 | ED.RN ---
RN CALLED FOR EKG, PULLED OLD EKGS FOR
--- NOTE | 2019-01-04 21:56 | EKG12_ITS ---
Test Reason : CP Blood Pressure : / mmHG Vent. Rate : 078 BPM Atrial Rate : 078 BPM P-R Int : 132 ms QRS Dur : 082 ms QT Int : 386 ms P-R-T Axes : 041 001 062 degrees QTc Int : 440 ms Normal sinus rhythm Normal ECG Confirmed by HASMUKH LORA, LILIANA ([id number]), commercial production editor ANNELIESE YOUNG ([id number]) on 01/06/2019 2:02:37 PM Referred By: Leonides Mora Confirmed By:LILIANA NOE MD
[2019-01-04 21:58] VITALS: O2SAT 98
--- NOTE | 2019-01-04 22:10 | RAD_ITS ---
STUDY: X-RAY CHEST REASON FOR EXAM: Female, 43 years old. Chest pain and shortness of breath. TECHNIQUE: PA and lateral views of the chest. COMPARISON: 12/15/2018. FINDINGS: There are slightly prominent markings in the perihilar regions and lower lungs. No focal infiltrate is seen. There is no demonstrated pleural abnormality. There is borderline cardiomegaly. Normal mediastinum and evi. Normal visualized pulmonary arteries. Normal visualized aortic arch and descending thoracic aorta. Normal visualized thoracic spine. Normal visualized ribs, clavicles, and shoulders. There is no demonstrated abnormality of the visualized soft tissue structures of the upper abdomen. RAD/Chest PA and Lateral IMPRESSION: Prominent markings which could reflect pulmonary venous congestion. No focal infiltrate is seen. Electronically Signed: Mendez Hoffmann MD at 22:52 EST Tel , Service support ,
[2019-01-04 22:15] LABS: Absolute Lymphocyte Count 3.08 X10^3/ul (0.83-4.51); Absolute Neutrophil Count 6.1 X10^3/uL (2.0-7.7); Basophil# 0.04 X10^3/uL; Basophil% 0.4 % (0-1); Eosinophil# 0.14 X10^3/uL; Eosinophils% 1.4 % (0-5); Hematocrit 39.3 % (37-47); Hemoglobin 12.2 g/dl (12.0-15.0); Lymphocyte # 3.08 X10^3/ul (4.0); Lymphocyte % 31.5 % (19-41); Mean Corpuscular Hgb 28.2 pg (27.0-32.0); Mean Platelet Vol. 9.9 fl (6.2-12.0); Monocyte# 0.34 X10^3/uL; Monocyte% 3.5 % (0-10); Neutrophil # 6.14 X10^3/uL (2.7-7.7); Neutrophil % 62.9 % (47-70); Platelet Count 240 K/mm3 (150-450); RBC Distribution Width CV 14.6 % (11.6-14.6); RBC Distribution Width SD 48.4 fl (35.1-43.9); Red Blood Count 4.32 M/mm3 (4.2-5.4); White Blood Count 9.8 K/mm3 (4.4-11.0)
[2019-01-04 22:16] LABS: POSITIVE COUNT NO; POSITIVE DIFFERENTIAL NO; POSITIVE MORPHOLOGY NO
[2019-01-04 22:25] VITALS: BP 154/81; BP 158/81; PULSE 81; PULSE 83; RESP 13; RESP 18; TEMP 36.9; O2SAT 96
[2019-01-04 22:29] LABS: International Normalized Ratio 0.9; Prothrombin Time (Protime)PT. 12.6 SECONDS (11.7-14.9)
[2019-01-04 22:31] LABS: Anion Gap 8 (5-15); BUN 13 mg/dL (7-18); BUN/Creat Ratio 17.7 RATIO (10-20); Calcium,Total 8.8 mg/dL (8.5-10.1); Chloride 100 mmol/L (98-107); Creatinine, Serum 0.73 mg/dL (0.55-1.02); EST Glomerular Filtration Rate 93 mL/min (>60); Est Glom Filt Rate - Afr Amer 112 mL/min (>60); Estimated Creatinine Clearance 91.26 ml/min; Glucose 346 mg/dL (74-106); Potassium 3.7 mmol/L (3.5-5.1); Sodium Level 138 mmol/L (136-145)
--- NOTE | 2019-01-04 23:06 | CT_ITS ---
HISTORY: INTERMITTENT CP ALL DAY, CURRENT TREATMENT FOR PE, C/O RIGHT FOOT PAIN, DIAB, Recent history of PE and pneumonia TECHNIQUE: Helically acquired images were obtained of the chest following IV contrast as per pulmonary angiogram protocol with 3D reconstructions. A radiation dose optimization technique was used for this scan. IV Contrast dosage and agent: 100 cc Isovue-370 contrast COMPARISON: Chest x-ray 01/04/2019 and CTA chest 12/15/2018 FINDINGS: Large body habitus. Previous history of PE but no current findings of residual or recurrent PE. The main, segmental, and visualized subsegmental pulmonary arteries show normal opacification in appearance. Normal heart size. No pericardial effusion. Thoracic aorta is normal in caliber without aneurysm or dissection. Previously seen bilateral pulmonary infiltrates have resolved. No acute or recurrent infiltrate. No pleural effusion or significant pleural disease. Right hilar and subcarinal subcentimeter lymph nodes. No suspicious lymph node enlargement. Stable left adrenal nodule which measures approximately 2.[address]/CTA Chest W/WO Contrast IMPRESSION: 1. No CT findings of residual or recurrent PE. 2. No acute chest disease identified. Previously seen bilateral pulmonary infiltrates have resolved. 3. Left adrenal stable nodule. Individualized dose optimization techniques were used for this CT. at 0022 Reported and signed by: Minesh Sanchez MD Electronically Signed: Minesh Sanchez, at 0:21 EST Tel , Service support ,
[2019-01-04 23:09] VITALS: BP 145/83; PULSE 88; RESP 23; O2SAT 96
[2019-01-04 23:30] VITALS: BP 140/50; PULSE 85; RESP 18; TEMP 37; O2SAT 96
[2019-01-05] VITALS (17 sets, daily range): BP systolic 124–160; BP diastolic 54–87; PULSE 74–100; RESP 14–21; TEMP 36.6–37.1; O2SAT 93–97; BMI 60.2
--- NOTE | 2019-01-05 00:32 | ED.VISSUMM ---
- ER Visit Summary Date of Service: 01/05/19 Chief Complaint: Chest pain and shortness of breath History of Present Illness: The patient is a 43 F who presents with chest pain shortness of breath. She was recently hospitalized for pneumonia and pulmonary embolism. She is on Eliquis. She notes that today she is intermittently been having chest pain which she describes as a heaviness. She denies any pain currently and only has minimal discomfort. She also complains of increasing shortness of breath particularly with exertion. She complains of increased cough and occasional sputum. No fevers or sweats. No abdominal pain nausea vomiting diarrhea. She also complains of bilateral foot pain. She notes she has daily foot pain attributed to her neuropathy and describes this as a shocking feeling. However if her foot pain has also been worse today. She has no known history of coronary artery disease but is obese with diabetes hypertension and hyperlipidemia. She is scheduled for a stress test in about 2 weeks. Physical Examination: Respiratory rate 22 pulse ox 93% on 4 L vitals otherwise unremarkable Moist mucous membranes Heart regular rate and rhythm Patient does have scattered expiratory wheezes Abdomen soft nontender nondistended Extremities are warm and dry with capillary refill less than 2 seconds trace symmetric lower extremity edema with 2+ dorsalis pedis pulses Alert Test Results: EKG shows normal sinus rhythm at a rate of 78 with no acute ischemic changes. CBC BMP unremarkable except glucose 346. INR 0.9. Troponin 0 0.022. Chest x-ray shows prominent markings questionable pulmonary venous congestion no focal infiltrate. CTA of the chest shows no evidence of pulmonary embolism and infiltrates have resolved. Emergency Department Course and Treatment: Workup as above. Initially pain chest x-ray and laboratory studies. Given possible pulmonary venous congestion and increasing shortness of breath I was concerned about possible treatment failure and increased clot burden/new or recurrent PE. Therefore we did repeat CTA of the chest which actually shows pulmonary emboli have resolved and infiltrates have resolved. Therefore I am concerned about possible cardiac etiology of her symptoms given her multiple risk factors. She has not had a stress test since 2013 and is already scheduled for one in a couple of weeks so I felt most appropriate care would be hospitalization for serial enzymes and stress testing. Treatment Plan: [] Disposition: Admit Impression: Chest pain This note was generated with [employer] dictation software. It may contain incorrect words, spelling, and punctuation that were not noted in review of the chart prior to signing ED Disposition - Plan for ED Patient: Referrals: Tino Oreilly MD [Primary Care Provider] -
[2019-01-05] MEDS: Ondansetron 4 MG/2 ML Vial IV (00:40)
[2019-01-05] MEDS: Morphine 4 MG/ML Syringe IV (00:42)
--- NOTE | 2019-01-05 01:04 | PCM.HP.STD ---
Problem List (1) Chest pain Status: Acute Qualifiers: Chest pain type: unspecified Qualified Code(s): R07.9 - Chest pain, unspecified (2) Hypertension Status: Chronic Qualifiers: (3) Anxiety Status: Chronic (4) Diabetes mellitus Status: Chronic Qualifiers: Diabetes mellitus type: type 2 Diabetes mellitus prison insulin use: with superintendent terminal use Diabetes mellitus complication status: with neurologic complications Diabetes mellitus complication detail: with polyneuropathy Qualified Code(s): E11.42 - Type 2 diabetes mellitus with diabetic polyneuropathy; Z79.4 - [facility] (current) use of insulin (5) Morbid obesity Status: Chronic (6) Hyperlipidemia Status: Chronic Qualifiers: History of Present Illness Date of Admission: 01/05/19 Chief Complaint: chest pain The patient is a 43 year old female with a past medical history of poorly controlled diabetes since age 20, hypertension, hyperlipidemia and former smoker who presents to the ER with chest pain. She was inpatient last month for pulmonary embolism and pneumonia for which she continues to take Eliquis. CTA is negative for either at this time. Troponinin is 0.022. She was to have an outpatient stress test in two weeks. Her pain has persisted and she admits to it occurring more frequently over the past week or so. She is currently chest pain free but does complain of neuropathic pain in her feet to mid calf level. She will be admitted for observation and cardiac workup. Past Medical History Past Medical History (Chronic Problems): Chronic Problems (Last Reviewed 12/31/18 @ 08:40 by Faby Duarte) Hyperglycemia (Chronic) Respiratory failure with hypoxia (Chronic) Hypertension (Chronic) 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 (Chronic) 23/17 cmH20 Anxiety (Chronic) Diabetes mellitus (Chronic) Morbid obesity (Chronic) Hyperlipidemia (Chronic) Hyperglycemia due to type 2 diabetes mellitus (Chronic) Medical History: Medical History (Last Reviewed 12/31/18 @ 08:40 by Faby Duarte) c section (Resolved) Abscess (Resolved) L02.91 Hypertension (Chronic) I10 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 (Chronic) G47.33 23/17 cmH20 Anxiety (Chronic) F41.9 History of MRSA infection (Resolved) Z86.14 Diabetes mellitus (Chronic) E11.9 Morbid obesity (Chronic) E66.01 Hyperlipidemia (Chronic) E78.5 Tobacco abuse (Resolved) Z72.0 NSTEMI (non-ST elevated myocardial infarction) (Resolved) I21.4 Hyperglycemia due to type 2 diabetes mellitus (Chronic) E11.65 Allergies cyclobenzaprine HCl [From Flexeril] Allergy (Verified 01/02/19 08:46) Hives venlafaxine [From Effexor] Adverse Reaction (Severe, Verified 01/02/19 08:46) unknown Home Medications: Ambulatory Orders Medication Instructions Recorded Buspirone HCl [Buspar] 5 mg PO BID PRN 09/29/13 Lisinopril [Zestril] 20 mg PO DAILY 09/29/13 Hydrochlorothiazide [Hctz] 25 mg PO DAILY 02/02/17 Multivit,Calc,Mins/Iron/Folic 1 ea PO DAILY 03/26/17 [Women's Daily Formula Caplet] Wade-3 Fatty Acids [Wade-3] 1,000 mg PO DAILY 03/26/17 Gabapentin [Neurontin] 400 mg PO TID 05/29/17 B12/Levomefolate Calcium/B-6 1 ea PO DAILY 10/07/17 [Folbic Rf Tablet] Insulin Aspart [Novolog Flexpen] 35 units SC TIDCM #0 10/08/17 Compression Socks, Medium [Futuro 1 ea MC DAILY #1 ea 02/28/18 Restoring] Dulaglutide [Trulicity] 0.5 ml SQ QWEEK MDD 0.5ml 06/08/18 Furosemide 40 mg PO BID 12/15/18 Omeprazole 40 mg PO DAILY 12/15/18 Albuterol Aerosols [Ventolin 2.5 mg INHALATION Q2H PRN PRN #30 12/18/18 Aerosols] vial.neb. Apixaban [Eliquis] 5 mg PO BID #120 tablet 12/18/18 Loratadine [Claritin] 10 mg PO DAILY #30 tablet 12/18/18 Nicotine [Nicoderm Cq] 21 mg TRANSDERM. DAILY #30 patch 12/18/18 Insulin Glargine [Lantus SoloStar 45 units SQ QHS 01/04/19 Pen] Insulin Glargine [Lantus SoloStar 70 units SC DAILY 01/04/19 Pen] Metformin HCl 1,000 mg PO DAILY 01/04/19 Oxygen, Home [Home Oxygen] 3 - 4 lpm NASAL DAILY 01/04/19 Surgical History: Surgical History (Last Reviewed 12/31/18 @ 08:40 by Faby Duarte) H/O arthroscopic knee surgery (Resolved) Z98.890 History of cholecystectomy (Resolved) Z98.890, Z90.49 Surgical History: appendectomy, arthroscopy, knee, cholecystectomy, - - . Drainage of right groin abscess. Recent I&D of left groin abscess. 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 Denies: Palpitations Respiratory: Reports: Shortness of breath upon exertion. Denies: Cough, Shortness of breath at rest, Sputum production Gastrointestinal: Denies: Abdominal Pain, Nausea, Vomiting Genitourinary: Denies: Dysuria Musculoskeletal: Denies: Joint Pain, Joint Tenderness Skin: Denies: Rash, Wounds Neurological: Denies: Numbness, Tingling, Focal weakness Psychiatric: Reports: Anxiety. Denies: Depression, Homicidal Ideations, Suicidal Ideations Hematologic/ Lymphatic: Denies: Easy Bruising, Easy Bleeding VTE Information - Inpt Only VTE Present on Admission: No VTE Mechan Device Prophylaxis: None VTE Pharm Prophylaxis ordered?: No Patient Problems: Active and Suspected Problems (Last Reviewed 12/31/18 @ 08:40 by Faby Duarte) Chest pain (Acute) - Physical Exam General: Alert, Oriented x3, Cooperative HEENT: Atraumatic, Normocephalic Neck: Supple Lungs: Clear to auscultation, Normal air movement Cardiovascular: Regular rate, Normal S1, Normal S2, No murmurs Abdomen: Bowel Sounds Present, Soft, Non Tender, Obese Extremities: Edema - 1+ lower extremity edema Skin: No rashes Musculoskeletal: No Tenderness to Palpation of Joints or Extremities Neurological: Neuro grossly intact Psych/Mental Status: Normal Affect, Appropriate Vital Signs Temp Pulse Resp BP Pulse Ox 98.6 F 83 17 160/82 H 95 01/04/19 23:30 01/05/19 00:47 01/05/19 00:47 01/05/19 00:47 01/05/19 00:47 Oxygen Flow Rate (L/min) 4 Oxygen Delivery Method Nasal Cannula Weight: 340 lb Body Mass Index (BMI) 56.5 Finger Stick Blood Glucose 189 Laboratory Tests Past 24 Hrs 01/04/19 01/04/19 01/04/19 22:05 22:05 22:05 WBC 9.8 RBC 4.32 Hgb 12.2 Hct 39.3 MCV 91.0 MCH 28.2 MCHC 31.0 L RDW 14.6 RDW Differential 48.4 H Plt Count 240 MPV 9.9 Immature Gran % (Auto) 0.300 Neut % (Auto) 62.9 Lymph % (Auto) 31.5 [place] % (Auto) 3.5 Eos % (Auto) 1.4 Baso % (Auto) 0.4 Absolute Neuts (auto) 6.1 Absolute Lymphs (auto) 3.08 Total Counted Not Reportable PT 12.6 INR 0.9 Sodium 138 Potassium 3.7 Chloride 100 Carbon Dioxide 30.0 Anion Gap 8 BUN 13 Creatinine 0.73 Estim Creat Clear Calc 91.26 Est GFR (MDRD) Af Amer 112 Est GFR (MDRD) Non-Af 93 BUN/Creatinine Ratio 17.7 Glucose 346 H Calcium 8.8 Troponin I 0.022 Assessment/Plan All Active Problems (Last Reviewed 12/31/18 @ 08:40 by Faby Duarte) Chest pain (Acute) Pulmonary embolism (Acute) Hidradenitis (Resolved) CAP (community acquired pneumonia) (Acute) Non-healing open wound of left groin (Resolved) Open wound of vulva with complication (Resolved) Necrotizing soft tissue infection (Resolved) Abscess of vulva (Resolved) Soft tissue abscess of inguinal region (Resolved) Cellulitis (Resolved) c section (Resolved) H/O arthroscopic knee surgery (Resolved) History of cholecystectomy (Resolved) Abscess (Resolved) History of MRSA infection (Resolved) Tobacco abuse (Resolved) NSTEMI (non-ST elevated myocardial infarction) (Resolved) Chronic Problems (Last Reviewed 12/31/18 @ 08:40 by Faby Duarte) Hyperglycemia (Chronic) Respiratory failure with hypoxia (Chronic) Hypertension (Chronic) 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 (Chronic) 23/17 cmH20 Anxiety (Chronic) Diabetes mellitus (Chronic) Morbid obesity (Chronic) Hyperlipidemia (Chronic) Hyperglycemia due to type 2 diabetes mellitus (Chronic) Plan 1. Chest Pain-- admit to observation in PCU, cycle cardiac markers, morphine, nitro, oxygen and aspirin per routine. Nuclear stress test in AM. 2. Diabetes-- Continue basal insulin and cover with ssi 3. Hypertension-- administer routine medicine at this time and may need a prn hydralazine if she remains hypertensive 4. PE-- hold Ana samuels for stress test in AM Code Visit OBSV E&M: [id number] Initial observation care L2
--- NOTE | 2019-01-05 01:08 | HP.PCM_ITS ---
Problem List (1) Chest pain Status: Acute Qualifiers: Chest pain type: unspecified Qualified Code(s): R07.9 - Chest pain, unspecified (2) Hypertension Status: Chronic Qualifiers: (3) Anxiety Status: Chronic (4) Diabetes mellitus Status: Chronic Qualifiers: Diabetes mellitus type: type 2 Diabetes mellitus skilled nursing insulin use: with terminal superintendent use Diabetes mellitus complication status: with neurologic complications Diabetes mellitus complication detail: with polyneuropathy Qualified Code(s): E11.42 - Type 2 diabetes mellitus with diabetic polyneuropathy; Z79.4 - prison (current) use of insulin (5) Morbid obesity Status: Chronic (6) Hyperlipidemia Status: Chronic Qualifiers: History of Present Illness Date of Admission: 01/05/19 Chief Complaint: chest pain The patient is a 43 year old female with a past medical history of poorly controlled diabetes since age 20, hypertension, hyperlipidemia and former smoker who presents to the ER with chest pain. She was inpatient last month for pulmona ry embolism and pneumonia for which she continues to take Eliquis. CTA is negative for either at this time. Troponinin is 0.022. She was to have an outpatient stress test in two weeks. Her pain has persisted and she admits to it occurring more frequently over the past week or so. She is currently chest pain free but does complain of neuropathic pain in her feet to mid calf level. She will be admitted for observation and cardiac workup. Past Medical History Past Medical History (Chronic Problems): Chronic Problems (Last Reviewed 12/31/18 @ 08:40 by Faby Duarte) Hyperglycemia (Chronic) Respiratory failure with hypoxia (Chronic) Hypertension (Chronic) 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 (Chronic) 23/17 cmH20 Anxiety (Chronic) Diabetes mellitus (Chronic) Morbid obesity (Chronic) Hyperlipidemia (Chronic) Hyperglycemia due to type 2 diabetes mellitus (Chronic) Medical History: Medical History (Last Reviewed 12/31/18 @ 08:40 by Faby Duarte) c section (Resolved) Abscess (Resolved) L02.91 Hypertension (Chronic) I10 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 (Chronic) G47.33 23/17 cmH20 Anxiety (Chronic) F41.9 History of MRSA infection (Resolved) Z86.14 Diabetes mellitus (Chronic) E11.9 Morbid obesity (Chronic) E66.01 Hyperlipidemia (Chronic) E78.5 Tobacco abuse (Resolved) Z72.0 NSTEMI (non-ST elevated myocardial infarction) (Resolved) I21.4 Hyperglycemia due to type 2 diabetes mellitus (Chronic) E11.65 Allergies cyclobenzaprine HCl [From Flexeril] Allergy (Verified 01/02/19 08:46) Hives venlafaxine [From Effexor] Adverse Reaction (Severe, Verified 01/02/19 08:46) unknown Home Medications: Ambulatory Orders Medication Instructions Recorded Buspirone HCl [Buspar] 5 mg PO BID PRN 09/29/13 Lisinopril [Zestril] 20 mg PO DAILY 09/29/13 Hydrochlorothiazide [Hctz] 25 mg PO DAILY 02/02/17 Multivit,Calc,Mins/Iron/Folic 1 ea PO DAILY 03/26/17 [Women's Daily Formula Caplet] Cameron-3 Fatty Acids [Cameron-3] 1,000 mg PO DAILY 03/26/17 Gabapentin [Neurontin] 400 mg PO TID 05/29/17 B12/Levomefolate Calcium/B-6 1 ea PO DAILY 10/07/17 [Folbic Rf Tablet] Insulin Aspart [Novolog Flexpen] 35 units SC TIDCM #0 10/08/17 Compression Socks, Medium [Futuro 1 ea MC DAILY #1 ea 02/28/18 Restoring] Dulaglutide [Trulicity] 0.5 ml SQ QWEEK MDD 0.5ml 06/08/18 Furosemide 40 mg PO BID 12/15/18 Omeprazole 40 mg PO DAILY 12/15/18 Albuterol Aerosols [Ventolin 2.5 mg INHALATION Q2H PRN PRN #30 12/18/18 Aerosols] vial.neb. Apixaban [Eliquis] 5 mg PO BID #120 tablet 12/18/18 Loratadine [Claritin] 10 mg PO DAILY #30 tablet 12/18/18 Nicotine [Nicoderm Cq] 21 mg TRANSDERM. DAILY #30 patch 12/18/18 Insulin Glargine [Lantus SoloStar 45 units SQ QHS 01/04/19 Pen] Insulin Glargine [Lantus SoloStar 70 units SC DAILY 01/04/19 Pen] Metformin HCl 1,000 mg PO DAILY 01/04/19 Oxygen, Home [Home Oxygen] 3 - 4 lpm NASAL DAILY 01/04/19 Surgical History: Surgical History (Last Reviewed 12/31/18 @ 08:40 by Faby Duarte) H/O arthroscopic knee surgery (Resolved) Z98.890 History of cholecystectomy (Resolved) Z98.890, Z90.49 Surgical History: appendectomy, arthroscopy, knee, cholecystectomy, - - C- section. Drainage of right groin abscess. Recent I&D of left groin abscess. 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 Denies: Palpitations Respiratory: Reports: Shortness of breath upon exertion. Denies: Cough, Shortness of breath at rest, Sputum production Gastrointestinal: Denies: Abdominal Pain, Nausea, Vomiting Genitourinary: Denies: Dysuria Musculoskeletal: Denies: Joint Pain, Joint Tenderness Skin: Denies: Rash, Wounds Neurological: Denies: Numbness, Tingling, Focal weakness Psychiatric: Reports: Anxiety. Denies: Depression, Homicidal Ideations, Suicidal Ideations Hematologic/ Lymphatic: Denies: Easy Bruising, Easy Bleeding VTE Information - Inpt Only VTE Present on Admission: No VTE Mechan Device Prophylaxis: None VTE Pharm Prophylaxis ordered?: No Patient Problems: Active and Suspected Problems (Last Reviewed 12/31/18 @ 08:40 by Faby Duarte) Chest pain (Acute) - Physical Exam General: Alert, Oriented x3, Cooperative HEENT: Atraumatic, Normocephalic Neck: Supple Lungs: Clear to auscultation, Normal air movement Cardiovascular: Regular rate, Normal S1, Normal S2, No murmurs Abdomen: Bowel Sounds Present, Soft, Non Tender, Obese Extremities: Edema - 1+ lower extremity edema Skin: No rashes Musculoskeletal: No Tenderness to Palpation of Joints or Extremities Neurological: Neuro grossly intact Psych/Mental Status: Normal Affect, Appropriate Vital Signs Temp Pulse Resp BP Pulse Ox 98.6 F 83 17 160/82 H 95 01/04/19 23:30 01/05/19 00:47 01/05/19 00:47 01/05/19 00:47 01/05/19 00:47 Oxygen Flow Rate (L/min) 4 Oxygen Delivery Method Nasal Cannula Weight: 340 lb Body Mass Index (BMI) 56.5 Finger Stick Blood Glucose 189 Laboratory Tests Past 24 Hrs 01/04/19 01/04/19 01/04/19 22:05 22:05 22:05 WBC 9.8 RBC 4.32 Hgb 12.2 Hct 39.3 MCV 91.0 MCH 28.2 MCHC 31.0 L RDW 14.6 RDW Differential 48.4 H Plt Count 240 MPV 9.9 Immature Gran % (Auto) 0.300 Neut % (Auto) 62.9 Lymph % (Auto) 31.5 [place] % (Auto) 3.5 Eos % (Auto) 1.4 Baso % (Auto) 0.4 Absolute Neuts (auto) 6.1 Absolute Lymphs (auto) 3.08 Total Counted Not Reportable PT 12.6 INR 0.9 Sodium 138 Potassium 3.7 Chloride 100 Carbon Dioxide 30.0 Anion Gap 8 BUN 13 Creatinine 0.73 Estim Creat Clear Calc 91.26 Est GFR (MDRD) Af Amer 112 Est GFR (MDRD) Non-Af 93 BUN/Creatinine Ratio 17.7 Glucose 346 H Calcium 8.8 Troponin I 0.022 Assessment/Plan All Active Problems (Last Reviewed 12/31/18 @ 08:40 by Faby Duarte) Chest pain (Acute) Pulmonary embolism (Acute) Hidradenitis (Resolved) CAP (community acquired pneumonia) (Acute) Non-healing open wound of left groin (Resolved) Open wound of vulva with complication (Resolved) Necrotizing soft tissue infection (Resolved) Abscess of vulva (Resolved) Soft tissue abscess of inguinal region (Resolved) Cellulitis (Resolved) c section (Resolved) H/O arthroscopic knee surgery (Resolved) History of cholecystectomy (Resolved) Abscess (Resolved) History of MRSA infection (Resolved) Tobacco abuse (Resolved) NSTEMI (non-ST elevated myocardial infarction) (Resolved) Chronic Problems (Last Reviewed 12/31/18 @ 08:40 by Faby Duarte) Hyperglycemia (Chronic) Respiratory failure with hypoxia (Chronic) Hypertension (Chronic) 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 (Chronic) cmH20 Anxiety (Chronic) Diabetes mellitus (Chronic) Morbid obesity (Chronic) Hyperlipidemia (Chronic) Hyperglycemia due to type 2 diabetes mellitus (Chronic) Plan 1. Chest Pain-- admit to observation in PCU, cycle cardiac markers, morphine, nitro, oxygen and aspirin per routine. Nuclear stress test in AM. 2. Diabetes-- Continue basal insulin and cover with ssi 3. Hypertension-- administer routine medicine at this time and may need a prn hydralazine if she remains hypertensive 4. PE-- hold Ana abril for stress test in AM Code Visit OBSV E&M: [id number] Initial observation care L2
[2019-01-05 05:15] LABS: Hematocrit 39.9 % (37-47); Hemoglobin 12.1 g/dl (12.0-15.0); Mean Corp Hgb Conc 30.3 g/gl (32-36); Mean Corpuscular Hgb 27.9 pg (27.0-32.0); Mean Corpuscular Volume 92.1 fL (81-99); Mean Platelet Vol. 10.1 fl (6.2-12.0); Platelet Count 231 K/mm3 (150-450); RBC Distribution Width CV 14.6 % (11.6-14.6); RBC Distribution Width SD 48.1 fl (35.1-43.9); Red Blood Count 4.33 M/mm3 (4.2-5.4); White Blood Count 9.2 K/mm3 (4.4-11.0)
[2019-01-05 05:16] LABS: Prothrombin Time (Protime)PT. 13.2 SECONDS (11.7-14.9)
[2019-01-05 05:17] LABS: Partial Thromboplast Time 31.2 Seconds (24.1-36.2)
[2019-01-05 05:24] LABS: Scan Indicated on CBC? Y/N NO
[2019-01-05 05:28] LABS: ALB/GLOB Ratio 0.8 RATIO (0.9-2.4); AST(SGOT) 15 U/L (15-37); Alanine Aminotransfer ALT/SGPT 24 U/L (13-56); Albumin, Serum 3.2 g/dL (3.2-5.0); Alkaline Phosphatase 96 U/L (45-117); Anion Gap 9 (5-15); BUN 12 mg/dL (7-18); BUN/Creat Ratio 21.4 RATIO (10-20); Calcium,Total 8.7 mg/dL (8.5-10.1); Chloride 101 mmol/L (98-107); Cholesterol 152 mg/dL (200); Creatinine, Serum 0.56 mg/dL (0.55-1.02); EST Glomerular Filtration Rate 126 mL/min (>60); Est Glom Filt Rate - Afr Amer 152 mL/min (>60); Estimated Creatinine Clearance 118.96 ml/min; Globulin 3.9 g/dL (2.2-4.2); Glucose 222 mg/dL (74-106); High Density Lipoprotein 44 mg/dL; Potassium 3.8 mmol/L (3.5-5.1); Protein, Total 7.1 g/dL (6.4-8.2); Sodium Level 142 mmol/L (136-145); Triglycerides 199 mg/dL; Very Low Density Lipoprotein 40 mg/dL (5-40)
--- NOTE | 2019-01-05 05:55 | EKG12_ITS ---
Test Reason : CP ADMIT Blood Pressure : / mmHG Vent. Rate : 082 BPM Atrial Rate : 082 BPM P-R Int : 134 ms QRS Dur : 094 ms QT Int : 398 ms P-R-T Axes : 042 012 057 degrees QTc Int : 464 ms Normal sinus rhythm Normal ECG When compared with ECG of 04-JAN-2019 21:21, MANUAL COMPARISON REQUIRED, DATA IS UNCONFIRMED Confirmed by HASMUKH LORA, LILIANA ([id number]), telegraph editor ANNELIESE YOUNG ([id number]) on 01/06/2019 2:10:45 PM Referred By: Leonides Mora Confirmed By:LILIANA NOE MD
[2019-01-05] MEDS: Aspirin E.C. 81 MG Tablet PO (05:56)
[2019-01-05] MEDS: Lisinopril 20 MG Tablet PO (05:56)
[2019-01-05] MEDS: Gabapentin 400 MG Capsule PO ×2 (05:56→13:06)
[2019-01-05 07:11] LABS: Bedside Glucose 225 mg/dL (70-110)
--- NOTE | 2019-01-05 08:55 | STRESSREP_ITS ---
Stress Test Report 43-year-old lady with a history of chest pain. Also has a history of hypertension and diabetes mellitus. Medications: Lasix, Neurontin, hydrochlorothiazide, Humalog, Zestril. Stress protocol: Resting EKG demonstrates normal sinus rhythm with a rate of 76 bpm normal intervals are noted resting blood pressure 108/60 mmHg. 0.4 mg of regadenoson was infused per usual protocol followed by rapid intravenous saline flush injection continuous EKG monitoring was performed. Patient maintained sinus rhythm throughout the recording. The maximum heart rate attained was 102 bpm which was 56% of maximum predicted heart rate the maximum workload was 1 metabolic equivalent. At rest there were no ST or T wave changes noted suggest ischemia at peak infusion no ST or T wave changes were noted suggest ischemia. The resting blood pressure was 108/60 with a final blood pressure 120/64. Myocardial perfusion protocol. 14.9 mCi of technetium 99m sestamibi was injected at rest. 0.4 mg of regadenoson was infused per usual protocol. At peak infusion 44.8 mCi of technetium 99m sestamibi was injected stress images were obtained stress and res t images were reconstructed and compared in the short axis vertical long and horizontal long axis. Gated images were also obtained Perfusion SPECT analysis: Review of the stress images demonstrated normal uptake of tracer noted in all areas of the myocardium except for small portion of the apex on the stress images. There was mild lack of perfusion in this area suggesting a mild amount of anterior ischemia. The gated ejection fraction is noted to be 57%. Conclusion: Mildly abnormal pharmacologic myocardial perfusion stress test with anterior ischemia. Preserved ejection fraction.
[2019-01-05 10:10] LABS: Pregnancy, Serum, hCG Quali. NEGATIVE Negative (0-9 Nonpreg)
--- NOTE | 2019-01-05 10:35 | PCM.CONS.C ---
Problem List (1) Chest pain Status: Acute Qualifiers: Chest pain type: unspecified Qualified Code(s): R07.9 - Chest pain, unspecified Reason for Consult Date of Consultation: 01/05/19 History of Present Illness: The patient is a 43 year old F with past medical history significant for hypertension, diabetes mellitus, morbid obesity, dyslipidemia and pulmonary embolism. Past some time, she has been having chest pains. She describes some pains as sharp lasting only a few seconds. However at other times he has anterior chest pressure that could last for hours at a time. He is unaware of any precipitating, exacerbating or relieving factors. Denies any radiation to the arm neck or jaw. No associated shortness of breath. No diaphoresis. No nausea or vomiting. Patient had a pharmacological stress test done this morning which showed mild apical ischemia. Subsequently we have been consulted for further management. Patient denies any exertional angina. She does get short of breath with moderate exertion. Denies any orthopnea or PND. Denies any ankle edema. [] Past Medical History Allergies/Adverse Reactions: Allergies cyclobenzaprine HCl [From Flexeril] Allergy (Verified 01/02/19 08:46) Hives venlafaxine [From Effexor] Adverse Reaction (Severe, Verified 01/02/19 08:46) unknown Home Medications: Ambulatory Orders Medication Instructions Recorded Buspirone HCl [Buspar] 5 mg PO BID PRN 09/29/13 Lisinopril [Zestril] 20 mg PO DAILY 09/29/13 Hydrochlorothiazide [Hctz] 25 mg PO DAILY 02/02/17 Multivit,Calc,Mins/Iron/Folic 1 ea PO DAILY 03/26/17 [Women's Daily Formula Caplet] [place]-3 Fatty Acids [[place]-3] 1,000 mg PO DAILY 03/26/17 Gabapentin [Neurontin] 400 mg PO TID 05/29/17 B12/Levomefolate Calcium/B-6 1 ea PO DAILY 10/07/17 [Folbic Rf Tablet] Insulin Aspart [Novolog Flexpen] 35 units SC TIDCM #0 10/08/17 Compression Socks, Medium [Futuro 1 ea MC DAILY #1 ea 02/28/18 Restoring] Dulaglutide [Trulicity] 0.5 ml SQ QWEEK MDD 0.5ml 06/08/18 Furosemide 40 mg PO BID 12/15/18 Omeprazole 40 mg PO DAILY 12/15/18 Albuterol Aerosols [Ventolin 2.5 mg INHALATION Q2H PRN PRN #30 12/18/18 Aerosols] vial.neb. Apixaban [Eliquis] 5 mg PO BID #120 tablet 12/18/18 Loratadine [Claritin] 10 mg PO DAILY #30 tablet 12/18/18 Nicotine [Nicoderm Cq] 21 mg TRANSDERM. DAILY #30 patch 12/18/18 Insulin Glargine [Lantus SoloStar 45 units SQ QHS 01/04/19 Pen] Insulin Glargine [Lantus SoloStar 70 units SC DAILY 01/04/19 Pen] Metformin HCl 1,000 mg PO DAILY 01/04/19 Oxygen, Home [Home Oxygen] 3 - 4 lpm NASAL DAILY 01/04/19 Past Medical History (Chronic Problems): Chronic Problems (Last Reviewed 12/31/18 @ 08:40 by Faby Duarte) Hyperglycemia (Chronic) Respiratory failure with hypoxia (Chronic) Hypertension (Chronic) 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 (Chronic) cmH20 Anxiety (Chronic) Diabetes mellitus (Chronic) Morbid obesity (Chronic) Hyperlipidemia (Chronic) Hyperglycemia due to type 2 diabetes mellitus (Chronic) Surgical History: appendectomy, arthroscopy, knee, cholecystectomy, - - . Drainage of right groin abscess. Recent I&D of left groin abscess. 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 Denies: Orthopnea, PND, Peripheral Edema, Palpitations Respiratory: Reports: Shortness of Breath Gastrointestinal: Denies: Abdominal Discomfort, Jaundice, Nausea, Emesis Neurological: Denies: History of TIA, History of CVA Hematologic/ Lymphatic: Denies: Easy Brusing, Easy Bleeding Subjectve: Morbidly obese Objective: Vital Signs Temp Pulse Resp BP Pulse Ox 98.2 F 79 20 H 124/54 H 96 01/05/19 05:54 01/05/19 08:28 01/05/19 05:54 01/05/19 05:54 01/05/19 06:33 Oxygen Flow Rate (L/min) 4 Oxygen Delivery Method Nasal Cannula Weight: 164.2 kg Body Mass Index (BMI) 60.2 Finger Stick Blood Glucose 189 General: Awake, Alert, Oriented x 3, No Acute Distress HEENT: Atraumatic Oral: Moist Mucosa Neck: Supple, - - Unable to assess jugular venous pulse because of body habitus Lungs: Clear to auscultation Cardiovascular: Regular Rhythm, Normal S1, Normal S2, No Murmurs, No Rubs Abdomen: Bowel Sounds Present, Soft, Obese Extremities: No edema Neurological: No Focal Motor or Sensory Deficit Psych/Mental Status: Appropriate 01/04/19 22:05: WBC 9.8, RBC 4.32, Hgb 12.2, Hct 39.3, MCV 91.0, MCH 28.2, MCHC 31.0 L, RDW 14.6, RDW Differential 48.4 H, Plt Count 240, MPV 9.9, Immature Gran % (Auto) 0.300, Neut % (Auto) 62.9, Lymph % (Auto) 31.5, [place] % (Auto) 3.5, Eos % (Auto) 1.4, Baso % (Auto) 0.4, Absolute Neuts (auto) 6.1, Total Counted Not Reportable 01/04/19 22:05: PT 12.6, INR 0.9 01/04/19 22:05: Sodium 138, Potassium 3.7, Chloride 100, Carbon Dioxide 30.0, Anion Gap 8, BUN 13, Creatinine 0.73, Est GFR (MDRD) Af Amer 112, Est GFR (MDRD) Non-Af 93, BUN/Creatinine Ratio 17.7, Glucose 346 H, Calcium 8.8, Troponin I 0.022 01/05/19 02:10: Troponin I 0.022 01/05/19 05:00: WBC 9.2, RBC 4.33, Hgb 12.1, Hct 39.9, MCV 92.1, MCH 27.9, MCHC 30.3 L, RDW 14.6, RDW Differential 48.1 H, Plt Count 231, MPV 10.1 01/05/19 05:00: PT 13.2, INR 1.0, APTT 31.2 01/05/19 05:00: Sodium 142, Potassium 3.8, Chloride 101, Carbon Dioxide 32.0, Anion Gap 9, BUN 12, Creatinine 0.56, Est GFR (MDRD) Af Amer 152, Est GFR (MDRD) Non-Af 126, BUN/Creatinine Ratio 21.4 H, Glucose 222 H, Calcium 8.7, Total Bilirubin 0.20, Troponin I 0.025, Triglycerides 199, Cholesterol 152, LDL Cholesterol 68, VLDL Cholesterol 40, HDL Cholesterol 44 Rhythm: Normal sinus rhythm EKG: Normal sinus rhythm. No ischemic changes ECHO: Stress Test: Shows mild anterior/apical ischemia Cardiac Cath: PCI: CT Surgery: Holter monitor: EPS: PPM: CXR: Chest CT Scan: Assessment/Plan 1. Chest pain with abnormal stress test. Patient symptoms are somewhat atypical however she has significant risk factors for coronary artery disease and also has an abnormal stress test. I discussed options with the patient including medical management for now versus cardiac catheterization with coronary angiography and possible revascularization. Risks benefits were explained in detail. She understands these and wishes to proceed with coronary angiography. 2. Hypertension. 3. Recent history of pulmonary embolism. 4. Diabetes mellitus. 5. Morbid obesity. 6. Dyslipidemia. 7. History of nicotine dependence in the past. Further recommendations will follow results of cardiac catheterization.
--- NOTE | 2019-01-05 10:38 | CASEMGMT ---
[facility] Insurance Review for Tertiary Care Ins: [facility], [facility], [facility], [facility], [facility], [facility]. Wayne RODRIGUEZN RN ACM
--- NOTE | 2019-01-05 10:40 | CON.PCM_ITS ---
Problem List (1) Chest pain Status: Acute Qualifiers: Chest pain type: unspecified Qualified Code(s): R07.9 - Chest pain, unspecified Reason for Consult Date of Consultation: 01/05/19 History of Present Illness: The patient is a 43 year old F with past medical history significant for hypertension, diabetes mellitus, morbid obesity, dyslipidemia and pulmonary embolism. Past some time, she has been having chest pains. She describes some pains as sharp lasting only a few seconds. However at other times he has anterior chest pressure that could last for hours at a time. He is unaware of a [place] precipitating, exacerbating or relieving factors. Denies any radiation to the arm neck or jaw. No associated shortness of breath. No diaphoresis. No nausea or vomiting. Patient had a pharmacological stress test done this morning which showed mild apical ischemia. Subsequently we have been consulted for further management. Patient denies any exertional angina. She does get short of breath with moderate exertion. Denies any orthopnea or PND. Denies any ankle edema. [] Past Medical History Allergies/Adverse Reactions: Allergies cyclobenzaprine HCl [From Flexeril] Allergy (Verified 01/02/19 08:46) Hives venlafaxine [From Effexor] Adverse Reaction (Severe, Verified 01/02/19 08:46) unknown Home Medications: Ambulatory Orders Medication Instructions Recorded Buspirone HCl [Buspar] 5 mg PO BID PRN 09/29/13 Lisinopril [Zestril] 20 mg PO DAILY 09/29/13 Hydrochlorothiazide [Hctz] 25 mg PO DAILY 02/02/17 Multivit,Calc,Mins/Iron/Folic 1 ea PO DAILY 03/26/17 [Women's Daily Formula Caplet] [place]-3 Fatty Acids [[place]-3] 1,000 mg PO DAILY 03/26/17 Gabapentin [Neurontin] 400 mg PO TID 05/29/17 B12/Levomefolate Calcium/B-6 1 ea PO DAILY 10/07/17 [Folbic Rf Tablet] Insulin Aspart [Novolog Flexpen] 35 units SC TIDCM #0 10/08/17 Compression Socks, Medium [Futuro 1 ea MC DAILY #1 ea 02/28/18 Restoring] Dulaglutide [Trulicity] 0.5 ml SQ QWEEK MDD 0.5ml 06/08/18 Furosemide 40 mg PO BID 12/15/18 Omeprazole 40 mg PO DAILY 12/15/18 Albuterol Aerosols [Ventolin 2.5 mg INHALATION Q2H PRN PRN #30 12/18/18 Aerosols] vial.neb. Apixaban [Eliquis] 5 mg PO BID #120 tablet 12/18/18 Loratadine [Claritin] 10 mg PO DAILY #30 tablet 12/18/18 Nicotine [Nicoderm Cq] 21 mg TRANSDERM. DAILY #30 patch 12/18/18 Insulin Glargine [Lantus SoloStar 45 units SQ QHS 01/04/19 Pen] Insulin Glargine [Lantus SoloStar 70 units SC DAILY 01/04/19 Pen] Metformin HCl 1,000 mg PO DAILY 01/04/19 Oxygen, Home [Home Oxygen] 3 - 4 lpm NASAL DAILY 01/04/19 Past Medical History (Chronic Problems): Chronic Problems (Last Reviewed 12/31/18 @ 08:40 by Faby Duarte) Hyperglycemia (Chronic) Respiratory failure with hypoxia (Chronic) Hypertension (Chronic) 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 (Chronic) / cmH20 Anxiety (Chronic) Diabetes mellitus (Chronic) Morbid obesity (Chronic) Hyperlipidemia (Chronic) Hyperglycemia due to type 2 diabetes mellitus (Chronic) Surgical History: appendectomy, arthroscopy, knee, cholecystectomy, - - C- section. Drainage of right groin abscess. Recent I&D of left groin abscess. 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 Denies: Orthopnea, PND, Peripheral Edema, Palpitations Respiratory: Reports: Shortness of Breath Gastrointestinal: Denies: Abdominal Discomfort, Jaundice, Nausea, Emesis Neurological: Denies: History of TIA, History of CVA Hematologic/ Lymphatic: Denies: Easy Brusing, Easy Bleeding Subjectve: Morbidly obese Objective: Vital Signs Temp Pulse Resp BP Pulse Ox 98.2 F 79 20 H 124/54 H 96 01/05/19 05:54 01/05/19 08:28 01/05/19 05:54 01/05/19 05:54 01/05/19 06:33 Oxygen Flow Rate (L/min) 4 Oxygen Delivery Method Nasal Cannula Weight: 164.2 kg Body Mass Index (BMI) 60.2 Finger Stick Blood Glucose 189 General: Awake, Alert, Oriented x 3, No Acute Distress HEENT: Atraumatic Oral: Moist Mucosa Neck: Supple, - - Unable to assess jugular venous pulse because of body habitus Lungs: Clear to auscultation Cardiovascular: Regular Rhythm, Normal S1, Normal S2, No Murmurs, No Rubs Abdomen: Bowel Sounds Present, Soft, Obese Extremities: No edema Neurological: No Focal Motor or Sensory Deficit Psych/Mental Status: Appropriate 01/04/19 22:05: WBC 9.8, RBC 4.32, Hgb 12.2, Hct 39.3, MCV 91.0, MCH 28.2, MCHC 31.0 L, RDW 14.6, RDW Differential 48.4 H, Plt Count 240, MPV 9.9, Immature Gran % (Auto) 0.300, Neut % (Auto) 62.9, Lymph % (Auto) 31.5, [place] % (Auto) 3.5, Eos % (Auto) 1.4, Baso % (Auto) 0.4, Absolute Neuts (auto) 6.1, Total Counted Not Reportable 01/04/19 22:05: PT 12.6, INR 0.9 01/04/19 22:05: Sodium 138, Potassium 3.7, Chloride 100, Carbon Dioxide 30.0, Anion Gap 8, BUN 13, Creatinine 0.73, Est GFR (MDRD) Af Amer 112, Est GFR (MDRD) Non-Af 93, BUN/Creatinine Ratio 17.7, Glucose 346 H, Calcium 8.8, Troponin I 0.022 01/05/19 02:10: Troponin I 0.022 01/05/19 05:00: WBC 9.2, RBC 4.33, Hgb 12.1, Hct 39.9, MCV 92.1, MCH 27.9, MCHC 30.3 L, RDW 14.6, RDW Differential 48.1 H, Plt Count 231, MPV 10.1 01/05/19 05:00: PT 13.2, INR 1.0, APTT 31.2 01/05/19 05:00: Sodium 142, Potassium 3.8, Chloride 101, Carbon Dioxide 32.0, Anion Gap 9, BUN 12, Creatinine 0.56, Est GFR (MDRD) Af Amer 152, Est GFR (MDRD) Non-Af 126, BUN/Creatinine Ratio 21.4 H, Glucose 222 H, Calcium 8.7, Total Bilirubin 0.20, Troponin I 0.025, Triglycerides 199, Cholesterol 152, LDL Cholesterol 68, VLDL Cholesterol 40, HDL Cholesterol 44 Rhythm: Normal sinus rhythm EKG: Normal sinus rhythm. No ischemic changes ECHO: Stress Test: Shows mild anterior/apical ischemia Cardiac Cath: PCI: CT Surgery: Holter monitor: EPS: PPM: CXR: Chest CT Scan: Assessment/Plan 1. Chest pain with abnormal stress test. Patient symptoms are somewhat atypical however she has significant risk factors for coronary artery disease and also has an abnormal stress test. I discussed options with the patient including medical management for now versus cardiac catheterization with coronary angiography and possible revascularization. Risks benefits were explained in detail. She understands these and wishes to proceed with coronary angiography. 2. Hypertension. 3. Recent history of pulmonary embolism. 4. Diabetes mellitus. 5. Morbid obesity. 6. Dyslipidemia. 7. History of nicotine dependence in the past. Further recommendations will follow results of cardiac catheterization.
--- NOTE | 2019-01-05 10:41 | NURSING ---
Maria Esther VENTURA from [employer] notified this RN that [employer] [employer] in ready for pt. Maria Esther VENTURA notified this RN not to prep pt, that [employer] would prep pt when pt arrived. report called to Malka VENTURA in [employer]
[2019-01-05] MEDS: 0.9% Normal Saline 1,000 ML 15 ML IV (10:43)
--- NOTE | 2019-01-05 11:12 | PCM.PROGNOTE ---
Patient Problems: Active and Suspected Problems (Last Reviewed 12/31/18 @ 08:40 by Faby Duarte) Chest pain (Acute) Subjective: Patient seen and examined. Continues to have intermittent chest pain. Complains of bilateral lower extremity pain which she states is due to neuropathy. Stress test abnormal this morning. Plan to undergo cardiac catheterization. - Physical Exam General: Alert, Oriented x3, Cooperative HEENT: Atraumatic, PERRLA, EOMI, Normocephalic Neck: Supple, No JVD, Negative Carotid Bruits Lungs: Clear to auscultation, Diminished Cardiovascular: Regular rate, Regular Rhythm, Normal S1, Normal S2, No murmurs Abdomen: Bowel Sounds Present, Soft, Non Tender, Non-Distended, Obese Extremities: No clubbing, No cyanosis, No edema, Capillary Refill Less than 3 Seconds Skin: No rashes, No breakdown Musculoskeletal: No Tenderness to Palpation of Joints or Extremities Neurological: Cranial nerves II-XII grossly intact, Neuro grossly intact Psych/Mental Status: Flat Affect Vital Signs Temp Pulse Resp BP Pulse Ox 97.9 F 80 16 140/77 H 96 01/05/19 10:40 01/05/19 10:40 01/05/19 10:40 01/05/19 10:40 01/05/19 10:40 Oxygen Flow Rate (L/min) 3 Oxygen Delivery Method Venturi Mask Weight: 361 lb 15.984 oz Body Mass Index (BMI) 60.2 Finger Stick Blood Glucose 189 Laboratory Tests Past 24 Hrs 01/04/19 01/04/19 01/04/19 22:05 22:05 22:05 WBC 9.8 RBC 4.32 Hgb 12.2 Hct 39.3 MCV 91.0 MCH 28.2 MCHC 31.0 L RDW 14.6 RDW Differential 48.4 H Plt Count 240 MPV 9.9 Immature Gran % (Auto) 0.300 Neut % (Auto) 62.9 Lymph % (Auto) 31.5 [place] % (Auto) 3.5 Eos % (Auto) 1.4 Baso % (Auto) 0.4 Absolute Neuts (auto) 6.1 Absolute Lymphs (auto) 3.08 Total Counted Not Reportable PT 12.6 INR 0.9 APTT Sodium 138 Potassium 3.7 Chloride 100 Carbon Dioxide 30.0 Anion Gap 8 BUN 13 Creatinine 0.73 Estim Creat Clear Calc 91.26 Est GFR (MDRD) Af Amer 112 Est GFR (MDRD) Non-Af 93 BUN/Creatinine Ratio 17.7 Glucose 346 H Calcium 8.8 Total Bilirubin AST ALT Alkaline Phosphatase Troponin I 0.022 Total Protein Albumin Globulin Albumin/Globulin Ratio Triglycerides Cholesterol LDL Cholesterol VLDL Cholesterol HDL Cholesterol Serum , Qual 01/05/19 01/05/19 01/05/19 02:10 05:00 05:00 WBC 9.2 RBC 4.33 Hgb 12.1 Hct 39.9 MCV 92.1 MCH 27.9 MCHC 30.3 L RDW 14.6 RDW Differential 48.1 H Plt Count 231 MPV 10.1 Immature Gran % (Auto) Neut % (Auto) Lymph % (Auto) [place] % (Auto) Eos % (Auto) Baso % (Auto) Absolute Neuts (auto) Absolute Lymphs (auto) Total Counted PT 13.2 INR 1.0 APTT 31.2 Sodium Potassium Chloride Carbon Dioxide Anion Gap BUN Creatinine Estim Creat Clear Calc Est GFR (MDRD) Af Amer Est GFR (MDRD) Non-Af BUN/Creatinine Ratio Glucose Calcium Total Bilirubin AST ALT Alkaline Phosphatase Troponin I 0.022 Total Protein Albumin Globulin Albumin/Globulin Ratio Triglycerides Cholesterol LDL Cholesterol VLDL Cholesterol HDL Cholesterol Serum , Qual 01/05/19 01/05/19 05:00 05:00 WBC RBC Hgb Hct MCV MCH MCHC RDW RDW Differential Plt Count MPV Immature Gran % (Auto) Neut % (Auto) Lymph % (Auto) [place] % (Auto) Eos % (Auto) Baso % (Auto) Absolute Neuts (auto) Absolute Lymphs (auto) Total Counted PT INR APTT Sodium 142 Potassium 3.8 Chloride 101 Carbon Dioxide 32.0 Anion Gap 9 BUN 12 Creatinine 0.56 Estim Creat Clear Calc 118.96 Est GFR (MDRD) Af Amer 152 Est GFR (MDRD) Non-Af 126 BUN/Creatinine Ratio 21.4 H Glucose 222 H Calcium 8.7 Total Bilirubin 0.20 AST 15 ALT 24 Alkaline Phosphatase 96 Troponin I 0.025 Total Protein 7.1 Albumin 3.2 Globulin 3.9 Albumin/Globulin Ratio 0.8 L Triglycerides 199 Cholesterol 152 LDL Cholesterol 68 VLDL Cholesterol 40 HDL Cholesterol 44 Serum , Qual NEGATIVE POC Glucose 01/05/19 05:58 POC Glucose 225 H Medical Necessity - Tobacco Use Smoking Status: Former smoker Assessment/Plan All Active Problems (Last Reviewed 12/31/18 @ 08:40 by Faby Duarte) Chest pain (Acute) Pulmonary embolism (Acute) Hidradenitis (Resolved) CAP (community acquired pneumonia) (Acute) Non-healing open wound of left groin (Resolved) Open wound of vulva with complication (Resolved) Necrotizing soft tissue infection (Resolved) Abscess of vulva (Resolved) Soft tissue abscess of inguinal region (Resolved) Cellulitis (Resolved) c section (Resolved) H/O arthroscopic knee surgery (Resolved) History of cholecystectomy (Resolved) Abscess (Resolved) History of MRSA infection (Resolved) Tobacco abuse (Resolved) NSTEMI (non-ST elevated myocardial infarction) (Resolved) 1. Chest pain-troponin negative. EKG without ST-T changes. Patient underwent nuclear stress test which was abnormal, demonstrated mild apical ischemia. Cardiology consulted. Plan to undergo cardiac catheterization. 2. Hypertension-stable, continue home lisinopril, HCTZ, Lasix regimen. 3. Type 2 diabetes mellitus with peripheral [id number] ACHS with SSI. Continue home Lantus and scheduled NovoLog regimen. Hold metformin, Trulicity regimen. Hemoglobin A1c December 2018 9.6%. Continue gabapentin regimen. 4. Hyperlipidemia-not on statin. Check fasting lipid panel. 5. LOGAN-BiPAP nightly. 6. History of PE-on anticoagulation with Eliquis. 7. Tobacco dependence-encouraged smoking cessation. Nicotine replacement patch. 8. Depression/anxiety-continue BuSpar regimen. 9. Hidradenitis/history of necrotizing diabetic abscess in the left inguinal and vulval area/MRSA hx- previously followed with wound center. 10. Morbid obesity-encouraged diet and lifestyle modifications. DVT prophylaxis- Eliquis This patient was seen by FADUMO Bangura under the supervision of Dr. Wilkes.
--- NOTE | 2019-01-05 11:45 | CL.D_ITS ---
Patient Name: MACARIO OVERTON Study Date: 01/05/2019 Performing: Marc Haynes MD Ht: 65 inches 165 cm : 1975 Wt: 362 lbs 164 kg Age: 43 Gender: female BSA: 2.54 PROCEDURE(S) PERFORMED HN92-[id number]/LV CLINICAL PROFILE AND INDICATIONS Heart Failure: None Stress/Imaging Stress Test w/SPECT MPI: Yes Result: Positive Low RiskStress Test with SPECT MPI: Positive Low Risk CAD Presentations: Symptom unlikely to be ischemic. CONCLUSIONS Mild bridging Mid LAD RECOMMENDATIONS Medical therapy Risk factor modification DESCRIPTION OF PROCEDURE The patient arrived to the procedure lab. The risks and benefits of the procedure as well as a full d escription of our services here and current unavailability of surgical backup were fully explained to the patient and/or their significant other prior to the catheterization. The Timeout was completed, verifying the correct patient and procedure. The patient's procedural site was prepped and draped in the usual fashion. Local anesthetic was given subcutaneously to left radial region with Lidocaine 2%. Using a modified Seldinger technique, arterial access was obtained via the left radial artery, a 6Fr sheath was inserted. Left Coronary Artery selective angiography was performed in multiple views usi ng a 5 Fr. 4.0 [place] catheter. Right Coronary Artery selective angiography was then performed in mult iple views using a 5 Fr. 3DRC ([place]) catheter.The arterial sheath was pulled and a TR Band was ap plied for hemostasis CORONARY ANGIOGRAPHY DOMINANCE: Right Dominant LEFT HEART ASSESSMENT Left Ventricular Ejection Fraction: Not assessed LEFT MAIN: Angiographically normal LEFT ANTERIOR DECENDING ARTERY: Mild briding Mid LAD CIRCUMFLEX ARTERY: Angiographically normal RIGHT CORONARY ARTERY: Angiographically normal COMPLICATIONS No Complications PROCEDURE MEDICATIONS Versed 1 mg IV Fentanyl 50 mcg IV Heparin given IA 01/05/2019 11:12:26 Heparin 2000 unit(s) IV 01/05/2019 11:27:30 Verapamil 2.5mg, Ntg 100mcgs, 2000 units of Heparin given IA 01/05/2019 11:12:26 SUMMARY OF HEMODYNAMIC DATA Time AIR REST ECG 10:51:06 AO 134/90 (110) SA 11:17:56 Signed By Marc Haynes MD On 01/05/2019 11:43:44 Marc Haynes MD
--- NOTE | 2019-01-05 11:45 | PCM.PN.BLA ---
Progress Note Coronary angiography performed through the left radial artery. No angiographic coronary artery disease. Mild intramyocardial bridging mid left anterior descending artery. Recommend starting on calcium channel blockers. Start on Cardizem CD 120 mg once daily. May discharge home this evening from a cardiology standpoint if left radial arterial access site stable. Follow up as OP with Dr. Ashley.
[2019-01-05] MEDS: Furosemide 40 MG Tablet PO (12:00)
[2019-01-05] MEDS: hydroCHLOROthiazide 25 MG Tablet PO (12:00)
[2019-01-05] MEDS: Pantoprazole Sodium 40 MG Tablet PO (12:00)
[2019-01-05] MEDS: Loratadine 10 MG Tablet PO (12:00)
[2019-01-05] MEDS: Insulin Lispro 100 UNIT/ML INSULN.PEN SC (12:01)
[2019-01-05] MEDS: 0.9% Normal Saline 1,000 ML 150 ML IV (12:07)
[2019-01-05] MEDS: dilTIAZem CD 120 MG Capsule PO (12:13)
[2019-01-05 12:22] LABS: Bedside Glucose 221 mg/dL (70-110)
[2019-01-05] MEDS: Morphine 2 MG/ML Syringe 1 MG IV (12:48)
--- NOTE | 2019-01-05 14:32 | DCINST_ITS ---
- Discharge Diagnoses Current Active Problems: Current Active and Chronic Problems (Last Reviewed 12/31/18 @ 08:40 by Faby Duarte) Chest pain (Acute) You will use the following diet at home:: Calorie/Carbohydrate Controlled (specify 1200, 1400, etc), Cardiac Discharge Activity: Return to Normal Activity, - - Follow post-op cath instructions. Call your doctor if you observe: Shortness of breath, Dizziness, Fainting spells, Chest pain Allergies/Adverse Reactions: Allergies cyclobenzaprine HCl [From Flexeril] Allergy (Verified 01/02/19 08:46) Hives venlafaxine [From Effexor] Adverse Reaction (Severe, Verified 01/02/19 08:46) unknown Medications to take at Discharge Buspirone HCl [Buspar] 5 mg PO BID PRN 09/29/13 Lisinopril [Zestril] 20 mg PO DAILY 09/29/13 Hydrochlorothiazide [Hctz] 25 mg PO DAILY 02/02/17 Multivit,Calc,Mins/Iron/Folic [Women's Daily Formula Caplet] 1 ea PO DAILY 03/26/17 [place]-3 Fatty Acids [[place]-3] 1,000 mg PO DAILY 03/26/17 Gabapentin [Neurontin] 400 mg PO TID 05/29/17 B12/Levomefolate Calcium/B-6 [Folbic Rf Tablet] 1 ea PO DAILY 10/07/17 Insulin Aspart [Novolog Flexpen] 35 units SC TIDCM #0 10/08/17 Compression Socks, Medium [Futuro Restoring] 1 ea MC DAILY #1 ea 02/28/18 Dulaglutide [Trulicity] 0.5 ml SQ QWEEK MDD 0.5ml 06/08/18 Furosemide 40 mg PO BID 12/15/18 Omeprazole 40 mg PO DAILY 12/15/18 Albuterol Aerosols [Ventolin Aerosols] 2.5 mg INHALATION Q2H PRN PRN #30 vial.neb. 12/18/18 Apixaban [Eliquis] 5 mg PO BID #120 tablet 12/18/18 Loratadine [Claritin] 10 mg PO DAILY #30 tablet 12/18/18 Nicotine [Nicoderm Cq] 21 mg TRANSDERM. DAILY #30 patch 12/18/18 Insulin Glargine [Lantus SoloStar Pen] 45 units SQ QHS 01/04/19 Insulin Glargine [Lantus SoloStar Pen] 70 units SC DAILY 01/04/19 Metformin HCl 1,000 mg PO DAILY 01/04/19 Oxygen, Home [Home Oxygen] 3 - 4 lpm NASAL DAILY 01/04/19 Aspirin E.C. [Ecotrin] 81 mg PO DAILY@0800 #30 tablet 01/05/19 Atorvastatin Calcium 40 mg PO QHS #30 tablet 01/05/19 Diltiazem CD [Cardizem CD] 120 mg PO DAILY #30 capsule 01/05/19 The following prescriptions were given: Aspirin E.C. [Ecotrin] 81 mg PO DAILY@0800 #30 tablet Atorvastatin Calcium 40 mg PO QHS #30 tablet Diltiazem CD [Cardizem CD] 120 mg PO DAILY #30 capsule Primary Care Physician: Tino Oreilly MD [Primary Care Provider] - Please follow up with your Primary Care Physician in: 1 Week Test Results: Test results from this visit will be discussed in further detail at your follow- up appointment, if applicable. Please Follow Up With: [facility] When: Call to establish, follow up in 1-2 Weeks. 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
--- NOTE | 2019-01-05 14:38 | DS.PCM_ITS ---
<Miranda Collins - Last Filed: 01/05/19 14:39> Discharge Date and Diagnosis Date of Admission: 01/05/19 Date of Discharge: 01/05/19 - Primary Discharge Diagnosis Active and Suspected Problems (Last Reviewed 12/31/18 @ 08:40 by Faby Duarte) 1. Atypical chest pain, ACS ruled out 2. Hypertension 3. Type 2 diabetes mellitus with peripheral neuropathy 4. Hyperlipidemia 5. LOGAN 6. History of PE 7. Tobacco dependence 8. Depression/anxiety 9. Hidradenitis/history of necrotizing diabetic abscess in the left inguinal and vulval area/MRSA hx- previously followed with wound center. 10. Morbid obesity - Secondary Discharge Diagnosis Chronic Problems (Last Reviewed 12/31/18 @ 08:40 by Faby Duarte) Hyperglycemia (Chronic) Respiratory failure with hypoxia (Chronic) Hypertension (Chronic) 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 (Chronic) cmH20 Anxiety (Chronic) Diabetes mellitus (Chronic) Morbid obesity (Chronic) Hyperlipidemia (Chronic) Hyperglycemia due to type 2 diabetes mellitus (Chronic) Hospital Course and Treatment Imaging Results: Diagnostic Data Chest X-Ray 01/04/19 22:10 IMPRESSION: Prominent markings which could reflect pulmonary venous congestion. No focal infiltrate is seen. Electronically Signed: Mendez Hoffmann MD at 22:52 EST Tel , Service support , Chest CTA 01/04/19 23:06 IMPRESSION: 1. No CT findings of residual or recurrent PE. 2. No acute chest disease identified. Previously seen bilateral pulmonary infiltrates have resolved. 3. Left adrenal stable nodule. Individualized dose optimization techniques were used for this CT. at 0022 Reported and signed by: Minesh Sanchez MD Electronically Signed: Minesh Sanchez, at 0:21 EST Tel , Service support , Dr. Haynes- Cardiology Operations: None Procedures: Cardiac catheterization, Stress test Summary of Care Provided: The patient is a 43 year old F admitted 01/05/19 due to chest pain. 1. Chest pain-troponin negative. EKG without ST-T changes. Patient underwent nuclear stress test which was abnormal, demonstrated mild apical ischemia. Cardiology consulted. Cardiac catheterization 01/05/19 with no angiographic coronary artery disease. Mild intramyocardial bridging mid left anterior descending artery. Patient was started on Cardizem CD 120 mg once daily per cardiology. Follow-up with Dr. Ashley in 1-2 Weeks. Follow-up with primary care physician in 1 week. 2. Hypertension-stable, continue home lisinopril, HCTZ, Lasix regimen. 3. Type 2 diabetes mellitus with peripheral neuropathy-continue home regimen. Hemoglobin A1c December 2018 9.6%. 4. Hyperlipidemia-not on statin. Atorvastatin 40 mg p.o. nightly added. Recommend repeat lipid panel as outpatient, can possibly de-escalate. 5. LOGAN-BiPAP nightly. 6. History of PE-on anticoagulation with Eliquis. 7. Tobacco dependence-encouraged smoking cessation. Nicotine replacement patch. 8. Depression/anxiety-continue BuSpar regimen. 9. Hidradenitis/history of necrotizing diabetic abscess in the left inguinal and vulval area/MRSA hx- previously followed with wound center. 10. Morbid obesity-encouraged diet and lifestyle modifications. General: Alert, Oriented x3, Cooperative HEENT: Atraumatic, PERRLA, EOMI, Normocephalic Neck: Supple, No JVD, Negative Carotid Bruits Lungs: Clear to auscultation, Diminished Cardiovascular: Regular rate, Regular Rhythm, Normal S1, Normal S2, No murmurs Abdomen: Bowel Sounds Present, Soft, Non Tender, Non-Distended, Obese Extremities: No clubbing, No cyanosis, No edema, Capillary Refill Less than 3 Seconds Skin: No rashes, No breakdown Musculoskeletal: No Tenderness to Palpation of Joints or Extremities Neurological: Cranial nerves II-XII grossly intact, Neuro grossly intact Psych/Mental Status: Flat Affect Patient seen and examined prior to discharge. Physical assessment as noted above. Patient is stable for discharge with follow up recommendations as noted above. This patient was seen by FADUMO Bangura under the supervision of Dr. Wilkes. - Physical Exam Vital Signs Temp Pulse Resp BP Pulse Ox 97.9 F 76 14 136/65 H 97 01/05/19 10:40 01/05/19 13:15 01/05/19 13:15 02/05/19 13:15 01/05/19 13:15 Oxygen Flow Rate (L/min) 4 Oxygen Delivery Method Nasal Cannula Weight: 361 lb 15.984 oz Body Mass Index (BMI) 60.2 Finger Stick Blood Glucose 189 Intake and Output for Last 24 Hours 01/03/19 01/04/19 01/05/19 23:59 23:59 23:59 Intake Total 240 / 240 Balance 240 / 240 Laboratory Tests Past 24 Hrs 01/04/19 01/04/19 01/04/19 22:05 22:05 22:05 WBC 9.8 RBC 4.32 Hgb 12.2 Hct 39.3 MCV 91.0 MCH 28.2 MCHC 31.0 L RDW 14.6 RDW Differential 48.4 H Plt Count 240 MPV 9.9 Immature Gran % (Auto) 0.300 Neut % (Auto) 62.9 Lymph % (Auto) 31.5 Mccreary % (Auto) 3.5 Eos % (Auto) 1.4 Baso % (Auto) 0.4 Absolute Neuts (auto) 6.1 Absolute Lymphs (auto) 3.08 Total Counted Not Reportable PT 12.6 INR 0.9 APTT Sodium 138 Potassium 3.7 Chloride 100 Carbon Dioxide 30.0 Anion Gap 8 BUN 13 Creatinine 0.73 Estim Creat Clear Calc 91.26 Est GFR (MDRD) Af Amer 112 Est GFR (MDRD) Non-Af 93 BUN/Creatinine Ratio 17.7 Glucose 346 H Calcium 8.8 Total Bilirubin AST ALT Alkaline Phosphatase Troponin I 0.022 Total Protein Albumin Globulin Albumin/Globulin Ratio Triglycerides Cholesterol LDL Cholesterol VLDL Cholesterol HDL Cholesterol Serum , Qual 01/05/19 01/05/19 01/05/19 02:10 05:00 05:00 WBC 9.2 RBC 4.33 Hgb 12.1 Hct 39.9 MCV 92.1 MCH 27.9 MCHC 30.3 L RDW 14.6 RDW Differential 48.1 H Plt Count 231 MPV 10.1 Immature Gran % (Auto) Neut % (Auto) Lymph % (Auto) Mccreary % (Auto) Eos % (Auto) Baso % (Auto) Absolute Neuts (auto) Absolute Lymphs (auto) Total Counted PT 13.2 INR 1.0 APTT 31.2 Sodium Potassium Chloride Carbon Dioxide Anion Gap BUN Creatinine Estim Creat Clear Calc Est GFR (MDRD) Af Amer Est GFR (MDRD) Non-Af BUN/Creatinine Ratio Glucose Calcium Total Bilirubin AST ALT Alkaline Phosphatase Troponin I 0.022 Total Protein Albumin Globulin Albumin/Globulin Ratio Triglycerides Cholesterol LDL Cholesterol VLDL Cholesterol HDL Cholesterol Serum , Qual 01/05/19 01/05/19 05:00 05:00 WBC RBC Hgb Hct MCV MCH MCHC RDW RDW Differential Plt Count MPV Immature Gran % (Auto) Neut % (Auto) Lymph % (Auto) Mccreary % (Auto) Eos % (Auto) Baso % (Auto) Absolute Neuts (auto) Absolute Lymphs (auto) Total Counted PT INR APTT Sodium 142 Potassium 3.8 Chloride 101 Carbon Dioxide 32.0 Anion Gap 9 BUN 12 Creatinine 0.56 Estim Creat Clear Calc 118.96 Est GFR (MDRD) Af Amer 152 Est GFR (MDRD) Non-Af 126 BUN/Creatinine Ratio 21.4 H Glucose 222 H Calcium 8.7 Total Bilirubin 0.20 AST 15 ALT 24 Alkaline Phosphatase 96 Troponin I 0.025 Total Protein 7.1 Albumin 3.2 Globulin 3.9 Albumin/Globulin Ratio 0.8 L Triglycerides 199 Cholesterol 152 LDL Cholesterol 68 VLDL Cholesterol 40 HDL Cholesterol 44 Serum , Qual NEGATIVE POC Glucose 01/05/19 01/05/19 11:58 05:58 POC Glucose 221 H 225 H Discharge Diet: Low fat/ Low Cholesterol, 1800 Calorie Control Diet, Carb Control Diet Discharge Activity: Return to Normal Activity, - - Follow post-op cath instructions. Call your doctor if you observe: Shortness of breath, Dizziness, Fainting spells, Chest pain Home Medications: Medications to take at Discharge Buspirone HCl [Buspar] 5 mg PO BID PRN 09/29/13 Lisinopril [Zestril] 20 mg PO DAILY 09/29/13 Hydrochlorothiazide [Hctz] 25 mg PO DAILY 02/02/17 Multivit,Calc,Mins/Iron/Folic [Women's Daily Formula Caplet] 1 ea PO DAILY 03/26/17 [place]-3 Fatty Acids [[place]-3] 1,000 mg PO DAILY 03/26/17 Gabapentin [Neurontin] 400 mg PO TID 05/29/17 B12/Levomefolate Calcium/B-6 [Folbic Rf Tablet] 1 ea PO DAILY 11/07/17 Insulin Aspart [Novolog Flexpen] 35 units SC TIDCM #0 10/08/17 Compression Socks, Medium [Futuro Restoring] 1 ea MC DAILY #1 ea 02/28/18 Dulaglutide [Trulicity] 0.5 ml SQ QWEEK MDD 0.5ml 06/08/18 Furosemide 40 mg PO BID 12/15/18 Omeprazole 40 mg PO DAILY 12/15/18 Albuterol Aerosols [Ventolin Aerosols] 2.5 mg INHALATION Q2H PRN PRN #30 vial.neb. 12/18/18 Apixaban [Eliquis] 5 mg PO BID #120 tablet 12/18/18 Loratadine [Claritin] 10 mg PO DAILY #30 tablet 12/18/18 Nicotine [Nicoderm Cq] 21 mg TRANSDERM. DAILY #30 patch 12/18/18 Insulin Glargine [Lantus SoloStar Pen] 45 units SQ QHS 01/04/19 Insulin Glargine [Lantus SoloStar Pen] 70 units SC DAILY 01/04/19 Metformin HCl 1,000 mg PO DAILY 01/04/19 Oxygen, Home [Home Oxygen] 3 - 4 lpm NASAL DAILY 01/04/19 Aspirin E.C. [Ecotrin] 81 mg PO DAILY@0800 #30 tablet 01/05/19 Atorvastatin Calcium 40 mg PO QHS #30 tablet 01/05/19 Diltiazem CD [Cardizem CD] 120 mg PO DAILY #30 capsule 01/05/19 Following Prescrptions Were Given to Patient: Aspirin E.C. [Ecotrin] 81 mg PO DAILY@0800 #30 tablet Atorvastatin Calcium 40 mg PO QHS #30 tablet Diltiazem CD [Cardizem CD] 120 mg PO DAILY #30 capsule Primary Care Physician: Tino Oreilly MD [Primary Care Provider] - Please follow up with your Primary Care Physician in: 1 Week Please Follow Up With: [facility] When: Call to establish, follow up in 1-2 Weeks. May see PIN ATTACHER/PA Please Follow Up With: Berlin Dumont MD When: As scheduled 03/24/19 Disposition: Home Minutes spent on discharge:: 35 Patient Condition:: Stable Medical Necessity - Tobacco Use Smoking Status: Former smoker Meaningful Use Info Meaningful Use Diagnoses (Choose all that apply): None applicable <Liam Wilkes Last Filed: 01/05/19 14:47> Discharge Date and Diagnosis - Secondary Discharge Diagnosis Chronic Problems (Last Reviewed 12/31/18 @ 08:40 by Faby Duarte) Hyperglycemia (Chronic) Respiratory failure with hypoxia (Chronic) Hypertension (Chronic) 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 (Chronic) / cmH20 Anxiety (Chronic) Diabetes mellitus (Chronic) Morbid obesity (Chronic) Hyperlipidemia (Chronic) Hyperglycemia due to type 2 diabetes mellitus (Chronic) Hospital Course and Treatment Imaging Results: 01/05/19 05:55 Nuclear Stress Test - Treadmil [NM] AM (NON MEDS) Summary of Care Provided: The patient is a 43 year old F [] - Physical Exam Vital Signs Temp Pulse Resp BP Pulse Ox 97.9 F 76 14 136/65 H 97 01/05/19 10:40 01/05/19 13:15 01/05/19 13:15 01/05/19 13:15 01/05/19 13:15 Oxygen Flow Rate (L/min) 4 Oxygen Delivery Method Nasal Cannula Weight: 361 lb 15.984 oz Body Mass Index (BMI) 60.2 Finger Stick Blood Glucose 189 Intake and Output for Last 24 Hours 01/03/19 01/04/19 01/05/19 23:59 23:59 23:59 Intake Total 240 / 240 Balance 240 / 240 Laboratory Tests Past 24 Hrs 01/04/19 01/04/19 01/04/19 22:05 22:05 22:05 WBC 9.8 RBC 4.32 Hgb 12.2 Hct 39.3 MCV 91.0 MCH 28.2 MCHC 31.0 L RDW 14.6 RDW Differential 48.4 H Plt Count 240 MPV 9.9 Immature Gran % (Auto) 0.300 Neut % (Auto) 62.9 Lymph % (Auto) 31.5 Mccreary % (Auto) 3.5 Eos % (Auto) 1.4 Baso % (Auto) 0.4 Absolute Neuts (auto) 6.1 Absolute Lymphs (auto) 3.08 Total Counted Not Reportable PT 12.6 INR 0.9 APTT Sodium 138 Potassium 3.7 Chloride 100 Carbon Dioxide 30.0 Anion Gap 8 BUN 13 Creatinine 0.73 Estim Creat Clear Calc 91.26 Est GFR (MDRD) Af Amer 112 Est GFR (MDRD) Non-Af 93 BUN/Creatinine Ratio 17.7 Glucose 346 H Calcium 8.8 Total Bilirubin AST ALT Alkaline Phosphatase Troponin I 0.022 Total Protein Albumin Globulin Albumin/Globulin Ratio Triglycerides Cholesterol LDL Cholesterol VLDL Cholesterol HDL Cholesterol Serum , Qual 01/05/19 01/05/19 01/05/19 02:10 05:00 05:00 WBC 9.2 RBC 4.33 Hgb 12.1 Hct 39.9 MCV 92.1 MCH 27.9 MCHC 30.3 L RDW 14.6 RDW Differential 48.1 H Plt Count 231 MPV 10.1 Immature Gran % (Auto) Neut % (Auto) Lymph % (Auto) Mccreary % (Auto) Eos % (Auto) Baso % (Auto) Absolute Neuts (auto) Absolute Lymphs (auto) Total Counted PT 13.2 INR 1.0 APTT 31.2 Sodium Potassium Chloride Carbon Dioxide Anion Gap BUN Creatinine Estim Creat Clear Calc Est GFR (MDRD) Af Amer Est GFR (MDRD) Non-Af BUN/Creatinine Ratio Glucose Calcium Total Bilirubin AST ALT Alkaline Phosphatase Troponin I 0.022 Total Protein Albumin Globulin Albumin/Globulin Ratio Triglycerides Cholesterol LDL Cholesterol VLDL Cholesterol HDL Cholesterol Serum , Qual 01/05/19 01/05/19 05:00 05:00 WBC RBC Hgb Hct MCV MCH MCHC RDW RDW Differential Plt Count MPV Immature Gran % (Auto) Neut % (Auto) Lymph % (Auto) Mccreary % (Auto) Eos % (Auto) Baso % (Auto) Absolute Neuts (auto) Absolute Lymphs (auto) Total Counted PT INR APTT Sodium 142 Potassium 3.8 Chloride 101 Carbon Dioxide 32.0 Anion Gap 9 BUN 12 Creatinine 0.56 Estim Creat Clear Calc 118.96 Est GFR (MDRD) Af Amer 152 Est GFR (MDRD) Non-Af 126 BUN/Creatinine Ratio 21.4 H Glucose 222 H Calcium 8.7 Total Bilirubin 0.20 AST 15 ALT 24 Alkaline Phosphatase 96 Troponin I 0.025 Total Protein 7.1 Albumin 3.2 Globulin 3.9 Albumin/Globulin Ratio 0.8 L Triglycerides 199 Cholesterol 152 LDL Cholesterol 68 VLDL Cholesterol 40 HDL Cholesterol 44 Serum , Qual NEGATIVE POC Glucose 01/05/19 01/05/19 11:58 05:58 POC Glucose 221 H 225 H Code Visit Addendum: Dr. Wilkes I personally examined the patient and reviewed the chart. I agree with the above. 43-year-old super morbidly obese female presenting with chest pain. Her troponins were negative however she did have a stress test that was mildly positive and therefore proceed with cardiac cath this afternoon. She had mild mid LAD disease that did not require a stent. She was continued on a statin as well as aspirin, and she can resume her Eliquis this evening when she goes home per cardiology. She will need outpatient cardiology follow-up. OBSV E&M: [id number] Observation care discharge
== END 2019-01-05 14:32 | disposition home or self-care (01) ==
LOC: ED 22:33 → PCU 01-05 00:53
PROVIDERS: Internal Medicine Cardiovascular Disease; Admitting Provider Family Medicine; Emergency Provider Emergency Medicine; Family Provider Family Medicine; PCP Family Medicine; Referring Provider Family Medicine; Visit Provider Family Medicine
DX: R07.89 Other chest pain (principal); E11.42 Type 2 diabetes mellitus with diabetic polyneuropathy; E78.5 Hyperlipidemia, unspecified; I10 Essential (primary) hypertension; G47.33 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 (adult) (pediatric); F32.9 Major depressive disorder, single episode, unspecified; F41.9 Anxiety disorder, unspecified; E66.01 Morbid (severe) obesity due to excess calories; L73.2 Hidradenitis suppurativa; J96.11 Chronic respiratory failure with hypoxia; R94.39 Abnormal result of other cardiovascular function study; E11.65 Type 2 diabetes mellitus with hyperglycemia; Z87.891 Personal history of nicotine dependence; Z68.44 Body mass index [BMI] 60.0-69.9, adult; Z71.3 Dietary counseling and surveillance; Z86.14 Personal history of Methicillin resistant Staphylococcus aureus infection; Z86.711 Personal history of pulmonary embolism; Z79.899 Other long term (current) drug therapy; Z79.4 Long term (current) use of insulin; Z79.01 Long term (current) use of anticoagulants; Z99.81 Dependence on supplemental oxygen
CPT/HCPCS: 36415; 71046; 71275; 78452; 80048; 80053; 80061; 82962; 84484; 84703; 85025; 85027; 85610; 85730; 93005; 93017; 93454; 96374; 96375; 96376; 97802; 99152; 99218; 99285; A9500; J7030; Q9967; A4216; C1769; C1894; G0378; J2405; J2785

== ENCOUNTER → 2019-01-11 12:30 | Outpatient (CLI) | payer MEDICAID, SELFPAY ==
[2018-12-31 08:40] VITALS: BMI 59.3
[2019-01-08 16:39] VITALS: BMI 56.5
[2019-01-11 13:38] VITALS: PULSE 108; PULSE 110; PULSE 112; PULSE 113; PULSE 114; PULSE 85; PULSE 92; O2SAT 89; O2SAT 90; O2SAT 91; O2SAT 92; O2SAT 96; O2SAT 97
--- NOTE | 2019-01-11 13:40 | CPS ---
Pt came in on 4 lpm pulse dose O2. SpO2 87% on room air. Placed patient back on her 4lpm pulse dose for entire testing.
--- NOTE | 2019-01-12 13:49 | PCM.PSN.6M ---
PSN 6 Minute Walk Test - 6 Minute Walk Test 6 Minute Walk Test: 6 Minute Walk Test PSN:6-Minute Walk Test Start: 01/11/19 13:37 Freq: Status: Active Protocol: [id number] Document 01/11/19 13:38 NI (Rec: 01/11/19 13:42 NI [id number]) 6 Minute Walk Test Date Performed 01/11/19 Time Performed 12:45 Height 5 ft 5 in Weight: 350 lb Weight in Pounds 350.[address]: Berlin Dumont Assistive device used: None Pre-test Oxygen Flow Rate (L/min) (L/min) 4 Oxygen Delivery Method Nasal Cannula Pulse Ox (%) 96 Pulse Rate (60-100 beats/min) 92 Dyspnea Jimbo Scale (0-10) 0 Exertion Jimbo Scale (6-20) 6 1st minute Oxygen Flow Rate (L/min) (L/min) 4 Oxygen Delivery Method Nasal Cannula Pulse Ox (%) 92 Pulse Rate (60-100 beats/min) 112 H 2nd minute Oxygen Flow Rate (L/min) (L/min) 4 Oxygen Delivery Method Nasal Cannula Pulse Ox (%) 91 Pulse Rate (60-100 beats/min) 108 H 3rd minute Oxygen Flow Rate (L/min) (L/min) 4 Oxygen Delivery Method Nasal Cannula Pulse Ox (%) 90 Pulse Rate (60-100 beats/min) 112 H 4th minute Oxygen Flow Rate (L/min) (L/min) 4 Oxygen Delivery Method Nasal Cannula Pulse Ox (%) 89 Pulse Rate (60-100 beats/min) 113 H 5th minute Oxygen Flow Rate (L/min) (L/min) 4 Oxygen Delivery Method Nasal Cannula Pulse Ox (%) 89 Pulse Rate (60-100 beats/min) 110 H 6th minute Oxygen Flow Rate (L/min) (L/min) 4 Oxygen Delivery Method Nasal Cannula Pulse Ox (%) 89 Pulse Rate (60-100 beats/min) 114 H Dyspnea Jimbo Scale (0-10) 4 Exertion Jimbo Scale (6-20) 14 Post-test Oxygen Flow Rate (L/min) (L/min) 4 Oxygen Delivery Method Nasal Cannula Pulse Ox (%) 97 Pulse Rate (60-100 beats/min) 85 Full Laps Walked 14 Partial Lap, Number of Tiles Walked 60 Total Distance Walked (ft) 886 01/11/19 13:40 Cardiopulmonary Services by Farrah Mariano Pt came in on 4 lpm pulse dose O2. SpO2 87% on room air. Placed patient back on her 4lpm pulse dose for entire testing. Initialized on 01/11/19 13:40 - END OF NOTE - Interpretation Interpretation: The patient ambulated 886 feet over the course of 6 minutes beginning on room air without assistive devices or breaks. Pretesting oxygen saturation was noted to be 87% on room air. The patient was subsequently placed on 4 L/min of pulse dose supplemental oxygen for testing. With ambulation, the chavo oxygen saturation was 89%. The patient did have a significant exertional oxygen desaturation noted, despite being on 4 L/min pulse dose supplemental oxygen. However, her oxygen saturation did not drop below 89%. - Recommendations Recommendations: 4 L/min of pulse dose supplemental oxygen should be utilized at all times.
== END ==
PROVIDERS: Family Provider Family Medicine; PCP Family Medicine; Referring Provider Internal Medicine Critical Care Medicine; Visit Provider Internal Medicine Critical Care Medicine
DX: J96.21 Acute and chronic respiratory failure with hypoxia (principal)
CPT/HCPCS: 94618

== ENCOUNTER → 2019-01-13 20:20 | Outpatient (CLI) | payer MEDICAID, SELFPAY ==
[2018-12-31 08:40] VITALS: BMI 59.3
[2019-01-08 16:39] VITALS: BMI 56.5
== END ==
PROVIDERS: Family Provider Family Medicine; PCP Family Medicine; Referring Provider Internal Medicine Critical Care Medicine; Visit Provider Internal Medicine Critical Care Medicine
DX: G47.33 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 (adult) (pediatric) (principal)
CPT/HCPCS: 95811

== ENCOUNTER → 2019-01-14 06:07 | Outpatient (CLI) | payer MEDICAID, SELFPAY ==
[2018-12-31 08:40] VITALS: BMI 59.3
[2019-01-08 16:39] VITALS: BMI 56.5
--- NOTE | 2019-01-15 13:46 | PFT ---
INTRODUCTION: The patient is a 43-year-old female that presents for pulmonary function testing secondary to a diagnosis of respiratory failure. Respiratory therapy reports good patient effort. Bronchodilators were used during testing. INTERPRETATION: Forced expiration spirometry demonstrates no evidence of a large airways obstructive ventilatory defect. There was no significant response to aerosolized bronchodilators. Spirograms are of good quality and plateau normally. Body plethysmography was performed and reveals a decreased TLC to 3.59 L, 67% of predicted, indicative of a moderate restrictive ventilatory defect. The remainder of the lung volumes are symmetrically reduced. Diffusing capacity by single breath CO is reduced as well at 45% of predicted. When compared to previous pulmonary function studies dated October 2017, there has been a 21% reduction in FEV1 along with a 12% reduction in DLCO. IMPRESSION: These pulmonary function studies demonstrate the presence of a moderate restrictive ventilatory impairment with a symmetric reduction in diffusing capacity. There has been worsening in the patient's pulmonary function study since they were last completed, as noted above.
== END ==
PROVIDERS: Family Provider Family Medicine; PCP Family Medicine; Referring Provider Internal Medicine Critical Care Medicine; Visit Provider Internal Medicine Critical Care Medicine
DX: J96.21 Acute and chronic respiratory failure with hypoxia (principal)
CPT/HCPCS: 94060; 94726; 94729

== ENCOUNTER → 2019-01-18 17:00 | Outpatient (CLI) | payer MEDICAID, SELFPAY ==
[2019-01-18 16:05] VITALS: BMI 61.5
[2019-01-18 18:12] LABS: BNP,B-Type NATRIURETIC PEPTIDE 9.6 pg/mL (0-100)
== END ==
PROVIDERS: Family Provider Family Medicine; PCP Family Medicine; Referring Provider Nurse Practitioner Family; Visit Provider Nurse Practitioner Family
DX: I10 Essential (primary) hypertension (principal); R06.09 Other forms of dyspnea
CPT/HCPCS: 83880

== ENCOUNTER → 2019-02-23 13:52 | Outpatient (CLI) | payer MEDICAID, SELFPAY ==
[2019-01-08 16:39] VITALS: BMI 56.5
[2019-01-18 16:05] VITALS: BMI 61.5
--- NOTE | 2019-02-23 13:53 | ECHOD_ITS ---
Reason For Study: DYSPNEA Procedure This was a 2D Doppler, Color Flow transthoracic echocardiogram. The study was technically difficult. Exam performed in department. Left Ventricle Normal LV size. Left ventricular systolic function is normal. The estimated ejection fraction is 65 %. There is evidence of diastolic dysfunction. No regional wall motion abnormalities noted. Right Ventricle Normal RV size. Normal systolic function. Atria The left atrium is mildly enlarged. Normal right atrium. No doppler evidence for ASD. Mitral Valve There is no mitral annular calcification. Normal mitral valve. Trivial mitral valve insufficiency. Tricuspid Valve Normal tricuspid valve. Trivial tricuspid valve insufficiency. Right ventricular systolic pressure estimated to be 38 mmHg. Aortic Valve Trisinus/trileaflet aortic valve. Normal aortic valve. Pulmonic Valve The pulmonic valve is not well visualized. Great Vessels Normal sized aortic root. Pericardium/Pleural No pericardial effusion. MMode/2D Measurements & Calculations LVIDd: 5.1 cm IVSd: 1.2 cm Ao root diam: 3.2 cm LVIDs: 3.1 cm LVPWd: 1.2 cm RVDd: 4.1 cm FS: 38.3 % LAV(MOD-bp): 63.8 ml EDV(MOD-sp4): 164.2 ml EDV(MOD-sp2): 111.7 ml LAV(MOD-bp) Indexed: 25.1 ml/m2 ESV(MOD-sp4): 48.9 ml EF(MOD-sp2): 60.1 % LAV(MOD-sp2): 38.7 ml EF(MOD-sp4): 70.2 % LAV(MOD-sp4): 82.5 ml SV(MOD-sp4): 115.3 ml SV(MOD-sp2): 67.1 ml LA A4 area: 25.3 cm2 LA dimension(2D): 4.4 cm RA A4 area: 17.4 cm2 Time Measurements MV dec time: 0.17 sec Doppler Measurements & Calculations MV E max ad: 114.8 cm/sec Lat Peak E' Ad: 10.1 cm/sec Med Peak E' Ad: 5.7 cm/sec MV A max ad: 68.9 cm/sec E/E' lat: 11.3 E/E' med: 20.0 MV E/A: 1.7 Ao V2 max: 160.3 cm/sec LV V1 max: 112.2 cm/sec TR max ad: 297.3 cm/sec Ao max P.3 mmHg LV V1 max P.0 mmHg TR max P.4 mmHg Interpretation Summary The study was technically difficult. Left ventricular systolic function is normal. The estimated ejection fraction is 65 %. The left atrium is mildly enlarged. Trivial mitral valve insufficiency. Trivial tricuspid valve insufficiency. Right ventricular systolic pressure estimated to be 38 mmHg. There is evidence of diastolic dysfunction. Ordering Physician: Ryan Valladares Referring Physician: PANFILO PRECIADO Performed By: Laurel Mayfield, ANETA, RVT
== END ==
PROVIDERS: Family Provider Family Medicine; PCP Family Medicine; Referring Provider Internal Medicine Critical Care Medicine; Visit Provider Internal Medicine Critical Care Medicine
DX: I10 Essential (primary) hypertension (principal); R06.09 Other forms of dyspnea
CPT/HCPCS: 93306

== ENCOUNTER 2019-07-09 22:13 | Emergency (ER) | payer MEDICAID, SELFPAY ==
[2019-03-24 10:45] VITALS: BMI 59.3
[2019-07-09 22:14] VITALS: BP 157/93; PULSE 99; RESP 18; TEMP 36.8; O2SAT 93; BMI 52.7
--- NOTE | 2019-07-09 22:40 | ED.DCSUM_ITS ---
History of Present Illness Chief Complaint: Complaint Detail of Chief Complaint: Right flank pain, frequency and urgency Informant: Patient Onset: Days Context: Sudden Onset Timing: Continuous, Waxes and wanes Quality: Colicky Location: Right flank radiating anteriorly Current Severity: Moderate Maximum Severity: Severe Worsened by: Nothing, cannot find position of comfort Relieved by: Nothing took Percocet from prior injury Associated Symptoms: Nausea and vomiting x2 and urinary symptoms Narrative: Patient is a 44-year-old woman who presents with right flank pain started abruptly is waxing waning in nature that radiates anteriorly. Associate with nausea and vomiting. She also complains of frequency and urgency. She has not noted any blood. She denies dysuria. She has no history of renal or ureteral c alculi. She has not menstruated in 3 years. She denies fever, chills or night sweats. She denies ocular, visual auditory symptoms. She denies cardiac or respiratory symptoms. There is no history of trauma. - Past Medical History (1) Anxiety Status: Chronic (2) Hyperglycemia due to type 2 diabetes mellitus Status: Chronic (3) Hyperlipidemia Status: Chronic (4) Morbid obesity Status: Chronic (5) 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 Status: Chronic Comment: cmH20 (6) Restrictive lung disease secondary to obesity Status: Chronic Past Medical History - Allergies and Home Meds Allergies/Adverse Reactions: Allergies cyclobenzaprine HCl [From Flexeril] Allergy (Verified 07/09/19 22:14) Hives venlafaxine [From Effexor] Adverse Reaction (Severe, Verified 07/09/19 22:14) unknown Primary Care Physician: Tino Oreilly MD [Primary Care Provider] - Surgical History: appendectomy, arthroscopy, knee, cholecystectomy, - - C- section. Drainage of right groin abscess. Recent I&D of left groin abscess. Lives: Alone Smoking Status: Former smoker Alcohol: Rare Drugs: None - Family History Maternal Family History: Family History (Last Reviewed 03/24/19 @ 10:47 by Leah Miller) Father CVA (cerebral vascular accident) Heart disease Diabetes Mother Thyroid disorder Family History: Reports: No pertinent history Review of Systems General: Reports: Chills. Denies: Fever, Malaise, Subjective, Sweats, Weight loss, - Eyes: Denies: Visual changes - bilaterally, Blurred Vision - bilaterally ENT: Denies: Rhinorrhea, Sore throat Cardiovascular: Denies: Chest pain, Palpitations Respiratory: Denies: Dyspnea, Cough, Dyspnea on exertion Gastrointestinal: Reports: Abdominal pain, Nausea, Vomiting. Denies: Diarrhea, Constipation, Melena, Hematochezia, -, - Genitourinary: Reports: Frequency. Denies: Dysuria, Hematuria Musculoskeletal: Reports: Back pain. Denies: Myalgias, Arthralgias, Neck pain, Swelling, Extremity Pain, -, - Skin: Denies: Rash, Wounds Neurological: Denies: Headache, Weakness, Numbness Endocrine: Denies: Polyuria, Polydipsia, Heat intolerance, Cold intolerance, -, - Hematologic: Denies: Easy bruising, Easy bleeding, Lymphadenopathy, -, - Physical Exam Vital Signs/Narrative: Vital Signs Temp Pulse Resp BP Pulse Ox 07/09/19 22:14 98.2 F 99 18 157/93 H 93 Inital Vital Signs reviewed: Yes General: Well nourished, Well developed, Obese, Acute Distress Head: Normocephalic, Atraumatic Eyes: Perrl, EOMI ENT: Moist mucous membranes, No rhinorrhea Neck: Supple, Nontender Cardiovascular: Regular rate, Regular rhythm, No murmurs, Normal S1, Normal S2 Respiratory: No distress, CTA bilaterally, Chest nontender Abdomen: Soft, Nontender, Nondistended, Normal bowel sounds, No masses Rectal: Deferred Back: Nontender, Normal Inspection. Negative for: CVA tenderness, Spinal tenderness Extremities: Nontender, No edema. Negative for: Tenderness Skin: Normal color, No rash, No Trauma. Negative for: Cyanosis, Diaphoresis, Jaundice Neurological: Alert, Oriented x3, Cranial nerves II-XII grossly intact, Normal Strength, Normal Sensation Psychological: Normal affect, Normal Mood, Tearful Diagnostic/Tx/Re-eval - Medical Decision Making With acute colicky waxing waning right flank pain with urinary symptoms concern for obstructing stone. Need to evaluate for infection as well. Since she is diabetic she was medicated with morphine and Zofran. CBC was obtained to assess white count and H&H. Basic metabolic panel was obtained to assess renal function as well as glucose and anion gap. CT of the abdomen pelvis without contrast was ordered to evaluate for obstructing ureterolithiasis. In the differential one needs to consider cholelithiasis with biliary colic, pyelonephritis or other intra-abdominal pathology. I was informed that there was difficulty establishing IV and obtaining blood. Blood work has been drawn. Patient has not had her scan as of 2356. Her case was discussed with the evening physician Dr. Nix. Dr. Nix to make disposition once laboratory results are available for interpretation and the CT of the abdomen pelvis without contrast has been interpreted by radiologist. ED Disposition - Plan for ED Patient: Referrals: Tino Oreilly MD [Primary Care Provider] -
[2019-07-09 23:19] VITALS: BP 171/54; PULSE 87; RESP 16; O2SAT 96
[2019-07-09 23:55] LABS: Color, Urine Yellow (Yellow); Glucose, Dipstick 1000 mg/dl (Normal); Ketone-Dipstick Negative (Negative); Leukocyte Esterase-Dipstick 25 /ul (Negative); Mucous, Urine 0 SEEN /hpf (<or=2+); Nitrite-Dipstick Negative (Negative); Occult Blood-Urine Negative /ul (Negative); Protein-Dipstick 30 mg/dl (Negative); Specific Gravity, Urine 1.015 (1.002-1.030); Urine Bilirubin Dipstick Negative (Negative); Urine Clarity Sl. Cloudy (Clear); Urine Urobilinogen 1 mg/dl (Normal)
[2019-07-09] MEDS: 0.9% Normal Saline 1,000 ML 250 ML IV (23:55)
[2019-07-09] MEDS: Ketorolac 30 MG/ML Syringe IV (23:55)
[2019-07-09] MEDS: morphine 8 MG/ML Syringe IV (23:55)
[2019-07-09] MEDS: Ondansetron 4 MG/2 ML Vial IV (23:55)
[2019-07-09 23:58] LABS: Absolute Lymphocyte Count 3.09 X10^3/uL (0.83-4.51); Absolute Neutrophil Count 7.1 X10^3/uL (2.0-7.7); Basophil# 0.11 X10^3/uL; Eosinophil# 0.21 X10^3/uL; Eosinophils% 1.9 % (0-5); Hematocrit 41.7 % (37-47); Hemoglobin 13.4 g/dL (12.0-15.0); Lymphocyte # 3.09 X10^3/ul (4.0); Lymphocyte % 28.2 % (19-41); Mean Corp Hgb Conc 32.1 g/dL (32-36); Mean Corpuscular Hgb 29.7 pg (27.0-32.0); Mean Corpuscular Volume 92.5 fL (81-99); Monocyte# 0.43 X10^3/uL; Monocyte% 3.9 % (0-10); NRBC Flagged by Analyzer 0 % (0-5); Neutrophil # 7.05 X10^3/uL (2.7-7.7); Neutrophil % 64.5 % (47-70); Platelet Count 247 K/mm3 (150-450); RBC Distribution Width CV 14.1 % (11.6-14.6); RBC Distribution Width SD 46.9 fl (35.1-43.9); Red Blood Count 4.51 M/mm3 (4.2-5.4); White Blood Count 10.9 K/mm3 (4.4-11.0)
[2019-07-09 23:59] VITALS: BP 169/93; PULSE 91; RESP 14; TEMP 36.9; O2SAT 97
[2019-07-10 00:01] LABS: Bacteria 1+ /hpf (None Seen); Red Blood Cells-Urine 0-5 SEEN /hpf (0-5); Squamous Epithelial Cells - UA 5-10 SEEN /hpf (5-10); White Blood Cells 0-5 SEEN /hpf (0-5)
[2019-07-10 00:13] LABS: Anion Gap 5 (5-15); BUN 14 mg/dL (7-18); BUN/Creat Ratio 18.1 RATIO (10-20); Calcium,Total 8.6 mg/dL (8.5-10.1); Chloride 96 mmol/L (98-107); Creatinine, Serum 0.78 mg/dL (0.55-1.02); EST Glomerular Filtration Rate 87 mL/min (>60); Est Glom Filt Rate - Afr Amer 105 mL/min (>60); Estimated Creatinine Clearance 84.55 ml/min; Glucose 255 mg/dL (74-106); Potassium 3.9 mmol/L (3.5-5.1); Sodium Level 134 mmol/L (136-145)
[2019-07-10 01:44] VITALS: BP 128/46; PULSE 93; RESP 16; O2SAT 100
--- NOTE | 2019-07-10 02:54 | DCINST.ED_ITS ---
ED Disposition - Plan for ED Patient: Disposition: Home or Assisted Living Diagnosis: Dysuria, Acute right flank pain, Adenoma of left adrenal gland, Constipation Instructions: FLANK PAIN, Uncertain Cause, Dysuria Prescriptions: Sulfamethoxazole/Trimethoprim [Bactrim Ds Tablet] 1 ea PO BID #6 tab Transmission Status: Pending to [facility] Referrals: Tino Oreilly MD [Primary Care Provider] - 3-5 Days if not improving
[2019-07-10 03:05] VITALS: RESP 16
--- NOTE | 2019-07-10 22:32 | CT_ITS ---
STUDY: CT ABDOMEN AND PELVIS WITHOUT CONTRAST REASON FOR EXAM: Female, 44 years old. PAIN BACK/FLANK/GROIN RIGHT SIDE WITH NAUSEA, DECREASED URINATION RADIATION DOSAGE (If Supplied By Facility): CTDIvol = ( 34.45 ) mGy, DLP = ( 1712.87 ) mGycm TECHNIQUE: Transaxial images were obtained from the dome of the diaphragm to the symphysis pubis without oral contrast, and without intravenous contrast. Sagittal and coronal images were reconstructed. Individualized dose optimization techniques were used for this CT. COMPARISON: None. FINDINGS: The visualized lung bases are unremarkable. The visualized portions of the heart are within normal limits. Normal liver. There is non-visualization of the gallbladder, which may be secondary to either contraction or a prior cholecystectomy. Normal spleen. Normal pancreas. There is a small, circumscribed, smooth, low attenuation left adrenal mass, consistent with an adrenal adenoma. Normal right adrenal gland. Normal right kidney. Normal left kidney. Normal visualized stomach. Normal small intestine. Normal colon. The appendix is visualized and appears normal. Normal abdominal aorta. Normal inferior vena cava. Normal retroperitoneum. Normal urinary bladder. Normal abdominal wall. Normal osseous structures. CT/Abdomen/Pelvis without Cont IMPRESSION: There is a small, circumscribed, smooth, low attenuation left adrenal mass, consistent with an adrenal adenoma. Electronically Signed: Patti Jensen, at 1:41 EDT Tel , Service support ,
== END 2019-07-10 03:06 | disposition home or self-care (01) ==
PROVIDERS: Emergency Provider Emergency Medicine; Family Provider Family Medicine; PCP Family Medicine
DX: R30.0 Dysuria (principal); R10.9 Unspecified abdominal pain; D35.02 Benign neoplasm of left adrenal gland; E11.65 Type 2 diabetes mellitus with hyperglycemia; K59.00 Constipation, unspecified; R39.15 Urgency of urination; R35.0 Frequency of micturition; R11.2 Nausea with vomiting, unspecified; E78.5 Hyperlipidemia, unspecified; G47.33 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 (adult) (pediatric); E66.01 Morbid (severe) obesity due to excess calories; F41.9 Anxiety disorder, unspecified; Z79.01 Long term (current) use of anticoagulants; Z79.82 Long term (current) use of aspirin; Z79.4 Long term (current) use of insulin; Z99.81 Dependence on supplemental oxygen; Z79.899 Other long term (current) drug therapy; Z87.891 Personal history of nicotine dependence; Z90.49 Acquired absence of other specified parts of digestive tract
CPT/HCPCS: 74176; 80048; 81001; 85025; 87086; 87088; 96361; 96374; 96375; 99285; J7030; A4216; J2405

== ENCOUNTER 2019-11-25 21:01 | Emergency (ER) | payer MEDICAID, SELFPAY ==
[2019-11-25 21:03] VITALS: BP 162/90; PULSE 91; RESP 18; TEMP 36.7; O2SAT 94; BMI 60.0
--- NOTE | 2019-11-25 21:33 | EKG12_ITS ---
Test Reason : CP Blood Pressure : / mmHG Vent. Rate : 096 BPM Atrial Rate : 096 BPM P-R Int : 132 ms QRS Dur : 084 ms QT Int : 374 ms P-R-T Axes : 058 -05 072 degrees QTc Int : 472 ms Normal sinus rhythm Normal ECG Confirmed by MERLE RANDOLPH ([id number]), supervising editor trailer ANNELIESE YOUNG ([id number]) on 11/30/2019 2:57:17 PM Referred By: TATI Confirmed By:MERLE RANDOLPH
--- NOTE | 2019-11-25 21:39 | ED.DCSUM_ITS ---
History of Present Illness Chief Complaint: Chest Pain Detail of Chief Complaint: Chest pain, leg pain, leg swelling Informant: Patient Onset: Yesterday Narrative: Patient presents with chest heaviness that is been intermittent, starting last night. It is not necessarily associated with exertion. Her larger complaint is that she has pain in both of her legs with swelling. She does have a history of neuropathy and already takes Neurontin. She reports multiple times that she has a high pain tolerance but has significant pain in her legs. She does have a history of PE and takes Eliquis. She is also on Lasix regularly, but states that was for leg swelling and she was never officially diagnosed with CHF. - Past Medical History (1) Anxiety Status: Chronic (2) Diabetes mellitus Status: Chronic (3) Hyperlipidemia Status: Chronic (4) Hypertension Status: Chronic (5) 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 Status: Chronic Comment: cmH20 (6) History of cholecystectomy Status: Resolved (7) NSTEMI (non-ST elevated myocardial infarction) Status: Resolved (8) Pulmonary embolism Status: Resolved Past Medical History - Allergies and Home Meds Allergies/Adverse Reactions: Allergies cyclobenzaprine HCl [From Flexeril] Allergy (Verified 11/25/19 21:05) Hives venlafaxine [From Effexor] Adverse Reaction (Severe, Verified 11/25/19 21:05) unknown Primary Care Physician: Tino Oreilly MD [Primary Care Provider] - Prior records reviewed: Yes Surgical History: appendectomy, arthroscopy, knee, cholecystectomy, - - C- section. Drainage of right groin abscess. Recent I&D of left groin abscess. Lives: With Family - Family History Maternal Family History: Family History (Last Reviewed 03/24/19 @ 10:47 by Leah Miller) Father CVA (cerebral vascular accident) Heart disease Diabetes Mother Thyroid disorder Family History: Reports: No pertinent history Review of Systems General: Denies: Chills, Fever Eyes: Denies: Visual changes - bilaterally ENT: Denies: Bilateral ear pain Cardiovascular: Reports: Chest pain Respiratory: Reports: Dyspnea. Denies: Cough Gastrointestinal: Denies: Abdominal pain, Nausea, Vomiting, Diarrhea Genitourinary: Denies: Dysuria Musculoskeletal: Reports: Swelling, Extremity Pain Skin: Denies: Rash Neurological: Denies: Parasthesia Hematologic: Denies: Easy bruising Allergy: Denies: Uticaria Physical Exam Vital Signs/Narrative: Vital Signs Temp Pulse Resp BP Pulse Ox 11/25/19 21:03 98.0 F 91 18 162/90 H 94 Inital Vital Signs reviewed: Yes General: Well nourished, Well developed Head: Normocephalic ENT: Moist mucous membranes Neck: Supple Cardiovascular: Regular rate, Regular rhythm Respiratory: No distress, CTA bilaterally Abdomen: Soft, Nontender, Hypoactive bowel sounds Extremities: Tenderness - Mild muscular tenderness throughout the calves bilaterally., Edema - 2-3+ edema lower extremities. Skin: Normal color Neurological: Alert, Oriented x3 Psychological: - - Anxious Diagnostic/Tx/Re-eval Impressions Venous Duplex 11/25/19 21:39 IMPRESSION: No demonstrated deep vein thrombosis. 7.4 x 1.9 x 4.7 cm right popliteal cyst. Electronically Signed: Vianey Golden MD at 23:07 EST Tel , Service support , Chest X-Ray 11/25/19 22:43 IMPRESSION: Prominent bilateral interstitial markings, a nonspecific finding may be secondary to mild edema. Electronically Signed: iVaney Golden MD at 23:18 EST Tel , Service support , 11/25/19 22:43 Chest PA and Lateral [RAD] Stat Laboratory Results 11/25/19 11/25/19 11/25/19 22:02 22:02 22:02 WBC 10.8 RBC 4.54 Hgb 12.9 Hct 42.3 MCV 93.2 MCH 28.4 MCHC 30.5 L RDW Std Deviation 50.3 H RDW Coeff of Darrion 14.7 H Plt Count 267 MPV 10.1 Immature Gran % (Auto) 0.800 Neut % (Auto) 67.7 Lymph % (Auto) 24.4 [place] % (Auto) 5.0 Eos % (Auto) 1.5 Baso % (Auto) 0.6 Absolute Neuts (auto) 7.3 Absolute Lymphs (auto) 2.65 Nucleated RBC % 0.3 Sodium 137 Potassium 3.7 Chloride 103 Carbon Dioxide 30.0 Anion Gap 4 L BUN 10 Creatinine 1.01 Estim Creat Clear Calc 65.29 Est GFR (MDRD) Af Amer 77 Est GFR (MDRD) Non-Af 64 BUN/Creatinine Ratio 9.9 L Glucose 333 H Calcium 8.5 Troponin I < 0.015 B-Natriuretic Peptide 12.0 - EKG Initial EKG Interpretation: Sinus Rhythm - Sinus at 96 with no acute ischemia. - Medical Decision Making Patient was given 0.5 mg of Dilaudid for pain. Venous ultrasound of the lower extremities reveal a right popliteal cyst. On repeat evaluation patient is resting more comfortably. Test results are discussed with her. She complains of burning sensation of both legs I think this is likely a flare of her neuropathy. She is on Neurontin and was advised to contact her family doctor tomorrow to see if her dose may need to be adjusted. In the meantime I will write her a short course of Percocet to help with pain this weekend. ED Disposition - Plan for ED Patient: Disposition: Home or Assisted Living Diagnosis: Neuropathy, Atypical chest pain Instructions: CHEST PAIN, NonCardiac, NEUROPATHY, Peripheral Prescriptions: Oxycodone HCl/Acetaminophen [Percocet 5/325] 1 tablet PO Q6H PRN PRN 5 Days #20 tablet PRN Reason: Pain Score 6-10/10 Referrals: Tino Oreilly MD [Primary Care Provider] - As soon as possible
--- NOTE | 2019-11-25 21:39 | US_ITS ---
STUDY: VENOUS DOPPLER ULTRASOUND - BILATERAL LOWER EXTREMITIES REASON FOR EXAM: Female, 44 years old. BILAT LEG SWELLING AND FOOT PAIN the examination was limited secondary to body habitus. TECHNIQUE: Ultrasound evaluation of the deep vein system to include wei-scale imaging and compression was performed. Wei-scale imaging and Doppler sonographic evaluation, including duplex spectral analysis and qualitative color flow sonography, was performed. COMPARISON: None. FINDINGS: RIGHT LEG Common Femoral Vein: Normal compression, spontaneity and augmentation. Normal color Doppler. Common Femoral Vein/Greater Saphenous Junction: Normal compression. Femoral Proximal: Normal compression, spontaneity and augmentation. Normal color Doppler. Femoral Middle: Normal compression, spontaneity and augmentation. Normal color Doppler. Femoral Distal: Normal compression. Popliteal Vein: Normal compression, spontaneity and augmentation. Normal color Doppler. Posterior Tibial Vein: Normal compression. Normal color Doppler. Peroneal Vein: Normal compression. Normal color Doppler. Within the popliteal fossa there is a 7.4 x 1.9 x 4.7 cm anechoic rounded focus. LEFT LEG Common Femoral Vein: Normal compression, spontaneity and augmentation. Normal color Doppler. Common Femoral Vein/Greater Saphenous Junction: Normal compression. Femoral Proximal: Normal compression. Femoral Middle: Normal compression, spontaneity and augmentation. Normal color Doppler. Femoral Distal: Normal compression. Popliteal Vein: Normal compression, spontaneity and augmentation. Normal color Doppler. Posterior Tibial Vein: Normal compression. Peroneal Vein: Normal compression. US/Venous Duplex Imag/[place] Extrem IMPRESSION: No demonstrated deep vein thrombosis. 7.4 x 1.9 x 4.7 cm right popliteal cyst. Electronically Signed: Vianey Golden MD at 23:07 EST Tel , Service support ,
[2019-11-25] MEDS: Ondansetron 4 MG/2 ML Vial IV (22:03)
[2019-11-25] MEDS: HYDROmorphone 1 MG/ML Syringe 0.5 MG IV (22:04)
[2019-11-25 22:27] LABS: Absolute Lymphocyte Count 2.65 X10^3/uL (0.83-4.51); Absolute Neutrophil Count 7.3 X10^3/uL (2.0-7.7); Basophil# 0.07 X10^3/uL; Basophil% 0.6 % (0-1); Eosinophil# 0.16 X10^3/uL; Eosinophils% 1.5 % (0-5); Hematocrit 42.3 % (37-47); Hemoglobin 12.9 g/dL (12.0-15.0); Lymphocyte # 2.65 X10^3/ul (4.0); Lymphocyte % 24.4 % (19-41); Mean Corp Hgb Conc 30.5 g/dL (32-36); Mean Corpuscular Hgb 28.4 pg (27.0-32.0); Mean Corpuscular Volume 93.2 fL (81-99); Mean Platelet Vol. 10.1 fl (6.2-12.0); Monocyte# 0.54 X10^3/uL; NRBC Flagged by Analyzer 0.3 % (0-5); Neutrophil # 7.33 X10^3/uL (2.7-7.7); Neutrophil % 67.7 % (47-70); Platelet Count 267 K/mm3 (150-450); RBC Distribution Width CV 14.7 % (11.6-14.6); RBC Distribution Width SD 50.3 fl (35.1-43.9); Red Blood Count 4.54 M/mm3 (4.2-5.4); White Blood Count 10.8 K/mm3 (4.4-11.0)
[2019-11-25 22:40] LABS: Anion Gap 4 (5-15); BUN 10 mg/dL (7-18); BUN/Creat Ratio 9.9 RATIO (10-20); Calcium,Total 8.5 mg/dL (8.5-10.1); Chloride 103 mmol/L (98-107); Creatinine, Serum 1.01 mg/dL (0.55-1.02); EST Glomerular Filtration Rate 64 mL/min (>60); Est Glom Filt Rate - Afr Amer 77 mL/min (>60); Estimated Creatinine Clearance 65.29 ml/min; Glucose 333 mg/dL (74-106); Potassium 3.7 mmol/L (3.5-5.1); Sodium Level 137 mmol/L (136-145)
--- NOTE | 2019-11-25 22:43 | RAD_ITS ---
STUDY: X-RAY CHEST REASON FOR EXAM: Female, 44 years old. CHEST PAIN AND LEG SWELLING TECHNIQUE: PA and lateral views of the chest. COMPARISON: January 04, 2019. FINDINGS: There are prominent interstitial markings within the mid and lower lungs. Normal size heart. Normal mediastinum and evi. Normal visualized pulmonary arteries. Normal visualized aortic arch and descending thoracic aorta. There are diffuse degenerative changes of the visualized thoracic spine. Normal visualized ribs, clavicles, and shoulders. There is no demonstrated abnormality of the visualized soft tissue structures of the upper abdomen. RAD/Chest PA and Lateral IMPRESSION: Prominent bilateral interstitial markings, a nonspecific finding may be secondary to mild edema. Electronically Signed: Vianey Golden MD at 23:18 EST Tel , Service support ,
[2019-11-25 23:46] VITALS: BP 158/89; PULSE 87; RESP 17; O2SAT 95
== END 2019-11-25 23:50 | disposition home or self-care (01) ==
PROVIDERS: Emergency Provider Emergency Medicine; Family Provider Family Medicine; PCP Family Medicine
DX: R07.89 Other chest pain (principal); E11.40 Type 2 diabetes mellitus with diabetic neuropathy, unspecified; M71.21 Synovial cyst of popliteal space [Baker], right knee; F41.9 Anxiety disorder, unspecified; E78.5 Hyperlipidemia, unspecified; I10 Essential (primary) hypertension; G47.33 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 (adult) (pediatric); I25.2 Old myocardial infarction; Z99.81 Dependence on supplemental oxygen; Z86.711 Personal history of pulmonary embolism; Z79.02 Long term (current) use of antithrombotics/antiplatelets; Z79.4 Long term (current) use of insulin; Z79.82 Long term (current) use of aspirin; Z79.899 Other long term (current) drug therapy
CPT/HCPCS: 71046; 80048; 83880; 84484; 85025; 93005; 93970; 96374; 96375; 99285; A4216; J2405

== ENCOUNTER → 2020-01-07 10:54 | Outpatient (CLI) | payer MEDICAID, SELFPAY ==
[2019-12-28 06:11] VITALS: BMI 58.3
--- NOTE | 2020-01-07 10:55 | ECHOCS_ITS ---
Version 2 Reason For Study: PHTN Procedure This was a 2D Doppler, Color Flow transthoracic echocardiogram. The study was technically difficult. Exam performed in department. Left Ventricle Normal LV size. The estimated ejection fraction is 55 %. Normal diastology for age. No regional wall motion abnormalities noted. Right Ventricle Normal RV size. Normal systolic function. Atria Normal left atrium. Normal right atrium. No doppler evidence for ASD. Mitral Valve There is no mitral valve stenosis. No mitral valve insufficiency. Tricuspid Valve There is no tricuspid stenosis. Trivial tricuspid valve insufficiency. Unable to estimate RV systolic pressure due to insufficient tricuspid regurgitant envelope. Aortic Valve Trisinus/trileaflet aortic valve. There is no aortic stenosis. No aortic valve insufficiency. Pulmonic Valve There is no pulmonic valvular stenosis. No pulmonic valve insufficiency. Great Vessels Normal aortic root. Pericardium/Pleural No pericardial effusion. Medication 22 gauge I.V. with prn adaptor inserted into right arm. Diluted definity 2.5ml given slow IV push to enhance endocardial definition. MMode/2D Measurements & Calculations LVIDd: 5.4 cm IVSd: 1.2 cm Ao root diam: 3.9 cm LVIDs: 3.7 cm LVPWd: 1.3 cm RVDd: 3.5 cm FS: 32.1 % LAV(MOD-bp): 53.9 ml LA A4 area: 20.5 cm2 LA dimension(2D): 3.7 cm LAV(MOD-bp) Indexed: 21.6 ml/m2 LAV(MOD-sp2): 38.3 ml LAV(MOD-sp4): 59.2 ml RA A4 area: 12.3 cm2 Doppler Measurements & Calculations MV E max ad: 113.1 cm/sec Lat Peak E' Ad: 12.3 cm/sec Med Peak E' Ad: 9.4 cm/sec MV A max ad: 54.9 cm/sec E/E' lat: 9.2 E/E' med: 12.0 MV E/A: 2.1 Ao V2 max: 169.7 cm/sec LV V1 max: 120.2 cm/sec PA V2 max: 129.8 cm/sec Ao max P.5 mmHg LV V1 max P.8 mmHg Interpretation Summary The estimated ejection fraction is 55 %. Normal diastology for age. The study was technically difficult. Contrast injection was performed. The study was technically difficult. Contrast injection was performed. Ordering Physician: Berlin Dumont Referring Physician: Eleuterio Oreilly Performed By: Anastasiya Puga RDCS
== END ==
PROVIDERS: PCP Family Medicine; Referring Provider Internal Medicine Critical Care Medicine; Visit Provider Internal Medicine Critical Care Medicine
DX: I27.20 Pulmonary hypertension, unspecified (principal); J96.91 Respiratory failure, unspecified with hypoxia; J98.4 Other disorders of lung; G47.33 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 (adult) (pediatric); E66.9 Obesity, unspecified; Z72.0 Tobacco use
CPT/HCPCS: 93306; Q9957; A4216; C8929

== ENCOUNTER → 2020-01-21 09:00 | Outpatient (CLI) | payer MEDICAID, SELFPAY ==
[2019-12-28 06:11] VITALS: BMI 58.3
== END ==
PROVIDERS: PCP Family Medicine; Referring Provider Nurse Practitioner Acute Care; Visit Provider Nurse Practitioner Acute Care
DX: G47.33 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 (adult) (pediatric) (principal)

== ENCOUNTER 2020-02-15 01:10 | Emergency (ER) | payer MEDICAID, SELFPAY ==
[2019-12-28 06:11] VITALS: BMI 58.3
[2020-02-15 01:11] VITALS: BP 175/78; PULSE 108; RESP 16; TEMP 36.7; O2SAT 90; BMI 61.9
--- NOTE | 2020-02-15 01:24 | ED.DCSUM_ITS ---
History of Present Illness Chief Complaint: Back Informant: Patient Narrative: Patient stated she has chronic diabetic peripheral neuropathy in her legs. She is having exacerbation of bilateral feet pain and burning. She does take Neurontin. She stated that she could not rest tonight because her feet felt painful. She did take a Percocet which she had leftover which did not seem to help so she came in for further evaluation. She does take a water pill. She does have morbid obesity. Patient stated she also has low back spasms which are acute on chronic. No injury to her back. She is allergic to Flexeril. This is not her underlying reason for coming which is the pain in her bilateral feet. Current severity is moderate to severe. Hurts to walk on them. - Past Medical History (1) CAP (community acquired pneumonia) Status: Acute (2) Chest pain Status: Acute (3) Old myocardial infarction Status: Acute (4) Anxiety Status: Chronic (5) Dyspnea on exertion Status: Chronic (6) Essential hypertension Status: Chronic (7) Hyperglycemia Status: Chronic (8) Hyperglycemia due to type 2 diabetes mellitus Status: Chronic (9) Hyperlipidemia Status: Chronic (10) Morbid obesity Status: Chronic (11) 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 Status: Chronic Comment: cmH20 (12) Respiratory failure with hypoxia Status: Chronic (13) Restrictive lung disease secondary to obesity Status: Chronic (14) Type 2 diabetes mellitus Status: Chronic Past Medical History - Allergies and Home Meds Allergies/Adverse Reactions: Allergies cyclobenzaprine HCl [From Flexeril] Allergy (Verified 11/25/19 21:05) Hives venlafaxine [From Effexor] Adverse Reaction (Severe, Verified 11/25/19 21:05) unknown Primary Care Physician: Tino Oreilly MD [Primary Care Provider] - Prior records reviewed: Yes Past Medical History: - - See problem list Surgical History: appendectomy, arthroscopy, knee, cholecystectomy, - - C- section. Drainage of right groin abscess. Recent I&D of left groin abscess. Smoking Status: Current every day smoker Alcohol: None Drugs: None - Family History Maternal Family History: Family History (Last Reviewed 12/28/19 @ 09:58 by Miranda Head) Father CVA (cerebral vascular accident) Heart disease Diabetes Mother Thyroid disorder Family History: Reports: No pertinent history Review of Systems General: Denies: Chills, Fever, Sweats Eyes: Denies: Visual changes - bilaterally, Diplopia ENT: Denies: Rhinorrhea, Sore throat Cardiovascular: Denies: Chest pain, Palpitations Respiratory: Denies: Dyspnea, Cough, Dyspnea on exertion Gastrointestinal: Denies: Abdominal pain, Nausea, Vomiting, Diarrhea, Melena, Hematochezia Genitourinary: Denies: Dysuria, Hematuria, Frequency Musculoskeletal: Reports: Back pain - Back spasms, Extremity Pain - Bilateral feet pain Skin: Denies: Rash, Wounds Neurological: Denies: Headache, Weakness, Numbness Physical Exam Vital Signs/Narrative: Vital Signs Temp Pulse Resp BP Pulse Ox 02/15/20 01:11 98.0 F 108 H 16 175/78 H 90 General: Well nourished, Well developed, No Acute Distress Head: Normocephalic, Atraumatic Eyes: Perrl, EOMI ENT: Moist mucous membranes, No rhinorrhea Neck: Supple, Nontender Cardiovascular: Regular rate, Regular rhythm, No murmurs Respiratory: No distress, CTA bilaterally, Chest nontender Abdomen: Soft, Nontender, Nondistended, Normal bowel sounds Back: Nontender, Normal Inspection Extremities: No edema, Tenderness - Tender in the bilateral feet are temperature and pulses both dorsalis pedis and posterior tibialis. No significant evidence of edema at all. Negative for: Nontender Skin: Normal color, No rash Neurological: Alert, Oriented x3, Cranial nerves II-XII grossly intact, Normal Strength, Normal Sensation Psychological: Normal affect, Normal Mood Diagnostic/Tx/Re-eval - Medical Decision Making Patient given injection of morphine and Toradol. On reevaluation her discomfort is much better. At this time I feel her leg pain is secondary to neuropathy. I do not feel she has a vascular cause of her symptoms. Patient also has back spasms. She will take anti-inflammatories at home and follow-up as an outpatient ED Disposition - Plan for ED Patient: Disposition: Home or Assisted Living Diagnosis: Back spasm, Diabetic neuropathy Instructions: BACK SPASM, No Trauma, What Is Peripheral Neuropathy? Referrals: Tino Oreilly MD [Primary Care Provider] -
[2020-02-15] MEDS: Ketorolac 30 MG/ML Syringe IM (01:29)
[2020-02-15] MEDS: morphine 8 MG/ML Syringe IM (01:29)
[2020-02-15 02:24] VITALS: BP 161/80; PULSE 90; RESP 18; O2SAT 91
== END 2020-02-15 02:25 | disposition home or self-care (01) ==
LOC: ED 01:28
PROVIDERS: Emergency Provider Emergency Medicine; PCP Family Medicine
DX: M62.830 Muscle spasm of back (principal); E11.42 Type 2 diabetes mellitus with diabetic polyneuropathy; E11.65 Type 2 diabetes mellitus with hyperglycemia; I25.2 Old myocardial infarction; I10 Essential (primary) hypertension; J96.11 Chronic respiratory failure with hypoxia; E78.5 Hyperlipidemia, unspecified; G47.33 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 (adult) (pediatric); F41.9 Anxiety disorder, unspecified; E66.01 Morbid (severe) obesity due to excess calories; F17.200 Nicotine dependence, unspecified, uncomplicated; Z68.44 Body mass index [BMI] 60.0-69.9, adult; Z79.4 Long term (current) use of insulin
CPT/HCPCS: 96372; 99282

== ENCOUNTER 2020-02-16 20:43 | Emergency (ER) | payer MEDICAID, SELFPAY ==
[2020-02-15 01:11] VITALS: BMI 61.9
[2020-02-16 20:46] VITALS: BP 190/93; PULSE 111; RESP 18; TEMP 37.6; O2SAT 91; BMI 58.2
--- NOTE | 2020-02-16 21:05 | ED.DCSUM_ITS ---
- ER Visit Summary Date of Service: 02/16/20 Chief Complaint: Cough, sore throat and fever History of Present Illness: The patient is a 44 F history of insulin-dependent diabetes, hypertension, sleep apnea requiring O2 and morbid obesity. Patient states for last 2+ days she has had a cough is been nonproductive fever, sore throat and diarrhea. She denies dysuria. She denies abdominal or chest pain. Physical Examination: Middle-aged female. Vital signs are stable. Currently her temperature is 99.7. She does not look septic or toxic. On room air she is 91%. Improved on her oxygen. H EENT exam TMs normal bilaterally. Moist mucous membranes. Posterior pharynx unremarkable. No erythema or exudate. No trouble swallowing or breathing. Neck no meningismus. Mild right lateral lymphadenopathy. Trachea midline nontender. Lungs clear to auscultation bilaterally diminished bilaterally. Heart regular rhythm rate about 110 no murmur. Abdomen morbidly obese but soft nontender normal bowel sounds no peritoneal signs. She is moving all 4 extremities. She has trace edema bilaterally which is chronic. Calves are nontender. No cords. Neurologically she is awake and alert. Back nontender. No rashes. Test Results: Chest x-ray AP and lateral views read by myself shows no acute abnormality. No pneumonia. No infiltrate. Repeat exam she is doing well at 2140 to be discharged home. Emergency Department Course and Treatment: History and exam are consistent with a viral syndrome. Treatment Plan: Plenty of fluids and rest. Alternate Tylenol and Motrin for fever and body aches. Follow-up with your doctor if not improving. Disposition: Discharge Impression: Acute viral syndrome This note was generated with [employer] dictation software. It may contain incorrect words, spelling, and punctuation that were not noted in review of the chart prior to signing ED Disposition - Plan for ED Patient: Referrals: Tino Oreilly MD [Primary Care Provider] -
--- NOTE | 2020-02-16 21:28 | RAD_ITS ---
STUDY: X-RAY CHEST REASON FOR EXAM: Female, 44 years old. sore throat cough and fever TECHNIQUE: Frontal and lateral views of the chest. COMPARISON: 11/25/2019 FINDINGS: The lungs are clear and expanded. There is no demonstrated pleural abnormality. Normal size heart. Normal mediastinum and evi. Normal visualized pulmonary arteries. Normal visualized aortic arch and descending thoracic aorta. Normal visualized thoracic spine. Normal visualized ribs, clavicles, and shoulders. There is no demonstrated abnormality of the visualized soft tissue structures of the upper abdomen. RAD/Chest PA and Lateral IMPRESSION: Normal x-ray examination of the chest. Electronically Signed: Hubert Gupta MD at 21:47 EDT Tel , Service support ,
--- NOTE | 2020-02-16 21:41 | ED.DEP ---
ED Disposition - Plan for ED Patient: Disposition: Home or Assisted Living Instructions: VIRAL SYNDROME (Adult) Referrals: Tino Oreilly MD [Primary Care Provider] - 1 Week if not improving Additional Instructions: Plenty of fluids and rest. Alternate Tylenol and Motrin for body aches and fever. Follow-up with your doctor if not improving or return if feeling a lot worse. Your chest x-ray tonight showed no signs of pneumonia.
[2020-02-16 21:47] VITALS: PULSE 115; RESP 22; O2SAT 96
== END 2020-02-16 21:48 | disposition home or self-care (01) ==
PROVIDERS: Emergency Provider Emergency Medicine; PCP Family Medicine
DX: J40 Bronchitis, not specified as acute or chronic (principal); B34.9 Viral infection, unspecified; R19.7 Diarrhea, unspecified; R60.0 Localized edema; I10 Essential (primary) hypertension; E66.01 Morbid (severe) obesity due to excess calories; E11.9 Type 2 diabetes mellitus without complications; G47.30 Sleep apnea, unspecified; Z79.4 Long term (current) use of insulin; Z79.82 Long term (current) use of aspirin; Z79.84 Long term (current) use of oral hypoglycemic drugs; Z79.899 Other long term (current) drug therapy; Z72.0 Tobacco use
CPT/HCPCS: 71046; 99282; A4216

== ENCOUNTER 2020-04-20 16:34 | Observation (INO) | payer MEDICAID, SELFPAY ==
[2020-03-29 10:24] VITALS: BMI 57.0
[2020-04-20] VITALS (8 sets, daily range): BP systolic 102–151; BP diastolic 56–106; PULSE 96–107; RESP 14–24; TEMP 36.8–37.3; O2SAT 92–97; BMI 63.9; BMI 56.2; BMI 56.3
[2020-04-20 17:04] LABS: Absolute Lymphocyte Count 1.16 X10^3/uL (0.83-4.51); Absolute Neutrophil Count 13.5 X10^3/uL (2.0-7.7); Basophil# 0.04 X10^3/uL; Basophil% 0.3 % (0-1); Hematocrit 40.9 % (37-47); Hemoglobin 11.4 g/dL (12.0-15.0); Lymphocyte # 1.16 X10^3/ul (4.0); Lymphocyte % 7.5 % (19-41); Mean Corp Hgb Conc 27.9 g/dL (32-36); Mean Corpuscular Hgb 25.7 pg (27.0-32.0); Mean Corpuscular Volume 92.3 fL (81-99); Mean Platelet Vol. 10.2 fl (6.2-12.0); Monocyte# 0.55 X10^3/uL; Monocyte% 3.6 % (0-10); NRBC Flagged by Analyzer 0.3 % (0-5); Neutrophil # 13.53 X10^3/uL (2.7-7.7); Neutrophil % 87.9 % (47-70); Platelet Count 254 K/mm3 (150-450); RBC Distribution Width CV 17.6 % (11.6-14.6); RBC Distribution Width SD 58.6 fl (35.1-43.9); Red Blood Count 4.43 M/mm3 (4.2-5.4); White Blood Count 15.4 K/mm3 (4.4-11.0)
[2020-04-20] MEDS: Naloxone 2 MG/2 ML Syringe IV (17:06)
[2020-04-20 17:14] LABS: ALB/GLOB Ratio 0.6 RATIO (0.9-2.4); AST(SGOT) 47 U/L (15-37); Alanine Aminotransfer ALT/SGPT 23 U/L (13-56); Albumin, Serum 2.7 g/dL (3.2-5.0); Alkaline Phosphatase 100 U/L (45-117); Anion Gap 8 (5-15); BUN 38 mg/dL (7-18); BUN/Creat Ratio 21.5 RATIO (10-20); Calcium,Total 7.3 mg/dL (8.5-10.1); Chloride 92 mmol/L (98-107); Creatinine, Serum 1.77 mg/dL (0.55-1.02); EST Glomerular Filtration Rate 33 mL/min (>60); Est Glom Filt Rate - Afr Amer 40 mL/min (>60); Estimated Creatinine Clearance 35.75 ml/min; Globulin 4.9 g/dL (2.2-4.2); Glucose 378 mg/dL (74-106); Potassium 5.1 mmol/L (3.5-5.1); Protein, Total 7.6 g/dL (6.4-8.2); Sodium Level 130 mmol/L (136-145)
[2020-04-20 18:30] LABS: VBG BASE EXCESS 3 mmol/L (-1.0-3.5); VBG Bicarbonate 28 mmol/L (22-26); VBG Oxygen Content 30 mmol/L (23-33); VBG PO2 45 mmHg (25-40); VBG SO2 80 % (50-70); VBG pCO2 47.7 mmHg (41-51); VBG pH 7.38 (7.32-7.42)
[2020-04-20 18:32] LABS: Blood Gas Specimen Type VEN
[2020-04-20 18:33] LABS: O2 Delivery Device Room Air; SITE L BRACHIAL
--- NOTE | 2020-04-20 19:46 | CT_ITS ---
STUDY: CT BRAIN WITHOUT CONTRAST REASON FOR EXAM: Female, 44 years old. FATIGUE,ALTERED MENTAL STATUS,SOB -- HX:HTN,DIABETES RADIATION DOSAGE (If Supplied By Facility): CTDIvol = ( 44.99 ) mGy, DLP = ( 846.73 ) mGycm TECHNIQUE: Transaxial CT imaging of the brain was performed without administration of intravenous contrast material. Individualized dose optimization techniques were used for this CT. COMPARISON: Report of previous study of 11/17/2010 FINDINGS: Normal soft tissue structures. Normal calvarium. Normal size ventricles and extra-axial spaces for the patient''s age. Normal white matter tracts of the cerebral hemispheres. Normal basal ganglia and thalami. Normal brainstem. Normal cerebellum. There is no intracranial hemorrhage. There are no findings of an acute ischemic infarction. Normal visualized paranasal sinuses. CT/Brain/Head without Contrast IMPRESSION: Normal unenhanced CT scan of the brain. Electronically Signed: Nii Polo MD at 20:25 EDT , Service support ,
--- NOTE | 2020-04-20 20:26 | NURSING ---
pt refused to be straight cath
[2020-04-20 20:28] LABS: Mucous, Urine 0 SEEN /hpf (<or=2+)
[2020-04-20 20:31] LABS: Color, Urine Yellow (Yellow); Glucose, Dipstick 250 mg/dl (Normal); Ketone-Dipstick Negative (Negative); Leukocyte Esterase-Dipstick 500 /ul (Negative); Nitrite-Dipstick Negative (Negative); Occult Blood-Urine 50 /ul (Negative); Protein-Dipstick 30 mg/dl (Negative); Urine Bilirubin Dipstick Negative (Negative); Urine Clarity Cloudy (Clear); Urine Urobilinogen Normal (Normal)
[2020-04-20 20:38] LABS: Bacteria 2+ /hpf (None Seen); Squamous Epithelial Cells - UA 5-10 SEEN /hpf (5-10)
[2020-04-20 20:39] LABS: Red Blood Cells-Urine 0-5 SEEN /hpf (0-5); White Blood Cells 10-25 SEEN /hpf (0-5)
[2020-04-20 20:50] LABS: Amphetamine Urine VISTA NEGATIVE (<1000 ng/mL); Barbiturate Urine VISTA NEGATIVE (< 200 ng/mL); Benzodiazepine Urine VISTA NEGATIVE (< 200 ng/mL); Cocaine Urine VISTA NEGATIVE (< 300 ng/mL); Ecstacy Urine VISTA NEGATIVE (< 500 ng/mL); Methadone Urine VISTA NEGATIVE (< 300 ng/mL); PCP Urine VISTA NEGATIVE (< 25 ng/mL); THC Urine VISTA NEGATIVE (< 50 ng/mL); Vista UDS pH Range 6
--- NOTE | 2020-04-20 20:57 | ED.DCSUM_ITS ---
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 She states that she is developed some redness particularly the left lower leg. They were hurting her so she took some Percocet in my hand. She states that she did not take them and an effort to harm herself. She tells me she took at least 4 pills at the same time. She has a history of obstructive sleep apnea and chronic hypoxemic respiratory failure. She is supposed to be on home oxygen all the time as well as CPAP. She has difficulty keeping herself awake at the time of examination. Past Medical History - Allergies and Home Meds Allergies/Adverse Reactions: Allergies cyclobenzaprine HCl [From Flexeril] Allergy (Verified 04/20/20 16:42) Hives venlafaxine [From Effexor] Adverse Reaction (Severe, Verified 04/20/20 16:42) unknown Primary Care Physician: Tino Oreilly MD [Primary Care Provider] - Surgical History: appendectomy, arthroscopy, knee, cholecystectomy, - - C- section. Drainage of right groin abscess. Recent I&D of left groin abscess. Smoking Status: Current every day smoker - Family History Maternal Family History: Family History (Last Reviewed 03/29/20 @ 10:37 by Nelly Hunter NP-C) Father CVA (cerebral vascular accident) Heart disease Diabetes Mother Thyroid disorder Family History: Reports: No pertinent history Review of Systems General: Reports: Malaise. Denies: Chills, Fever, Sweats Eyes: Denies: Visual changes - bilaterally, Diplopia ENT: Denies: Rhinorrhea, Sore throat Cardiovascular: Denies: Chest pain, Palpitations Respiratory: Denies: Dyspnea, Cough, Dyspnea on exertion Gastrointestinal: Denies: Abdominal pain, Nausea, Vomiting, Diarrhea, Melena, Hematochezia Genitourinary: Denies: Dysuria, Hematuria, Frequency Musculoskeletal: Reports: Extremity Pain. Denies: Back pain Skin: Reports: Rash. Denies: Wounds Neurological: Denies: Headache, Weakness, Numbness Physical Exam Vital Signs/Narrative: Vital Signs Pulse Resp BP Pulse Ox 04/20/20 20:12 107 H 24 H 102/56 L 93 Inital Vital Signs reviewed: Yes General: Well nourished, Well developed, Obese, No Acute Distress Head: Normocephalic, Atraumatic Eyes: Perrl, EOMI ENT: Moist mucous membranes, No rhinorrhea Neck: Supple, Nontender Cardiovascular: Regular rate, Regular rhythm, No murmurs Respiratory: No distress, CTA bilaterally, Chest nontender Abdomen: Soft, Nontender, Nondistended, Normal bowel sounds Back: Nontender, Normal Inspection Extremities: No edema, Tenderness - Of the distal left leg Skin: Normal color, - - There is bright red erythema of the lower left leg with increased warmth. Neurological: Normal Strength, Lethargic - Patient is lethargic. She requires stimulation to keep her awake. Diagnostic/Tx/Re-eval - Medical Decision Making The patient tells me she took at least 4 Percocet now her legs do not seem to want to work correctly and she is lethargic requiring stimulation to keep her awake. She received Narcan and became more awake and actually vomited. However as time went back on she became more somnolent. She was received supplemental oxygen. White count is at 15. Drug screen is positive for opiates. I did an ABG that shows a pH of 7.380 PCO2 of 47.7 this most likely a venous specimen. Therefore I do not think that this is CO2 retention. I think this is a combin ation of cellulitis of her leg as well as a degree of narcotic overdosing. Blood cultures will be obtained and the patient received clindamycin. ED Disposition - Plan for ED Patient: Disposition: Acute Care [facility] Diagnosis: Opiate overdose, Cellulitis of leg, Altered mental status, Chronic respiratory failure with hypoxia, KERRY (acute kidney injury), Type 2 diabetes mellitus Referrals: Tino Oreilly MD [Primary Care Provider] -
[2020-04-20 22:14] LABS: Lactic Acid 1.5 mmol/L (0.4-1.9)
--- NOTE | 2020-04-20 22:21 | PCM.HP.STD ---
Problem List (1) Acute encephalopathy Status: Acute (2) Opiate overdose Status: Acute (3) Cellulitis of leg Status: Acute (4) Altered mental status Status: Acute (5) Chronic respiratory failure with hypoxia Status: Chronic (6) KERRY (acute kidney injury) Status: Acute (7) Type 2 diabetes mellitus Status: Chronic (8) Essential hypertension Status: Chronic (9) Restrictive lung disease secondary to obesity Status: Chronic (10) Hyperglycemia Status: Chronic (11) Respiratory failure with hypoxia Status: Chronic Qualifiers: Chronicity: chronic Qualified Code(s): J96.11 - Chronic respiratory failure with hypoxia (12) 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 Status: Chronic Comment: cmH20 (13) Anxiety Status: Chronic (14) Morbid obesity Status: Chronic (15) Hyperlipidemia Status: Chronic Qualifiers: Hyperlipidemia type: unspecified Qualified Code(s): E78.5 - Hyperlipidemia, unspecified (16) Hyperglycemia due to type 2 diabetes mellitus Status: Chronic Qualifiers: (17) Sepsis Status: Acute History of Present Illness Date of Admission: 04/20/20 Chief Complaint: altered mental status The patient is a 44 year old F with a significant history of obesity; hypertension; type 2 diabetes; chronic hypoxemic respiratory failure; obstructive sleep apnea who presents to the emergency department with altered mental status. Reportedly patient took fourth tablets of Percocet in 30 minutes. She then developed altered mental status. Reportedly she took the Percocet because of left leg pain. She has not been able to walk on the left leg secondary to pain. She has redness and swelling of her left leg. At emergent department patient was given Narcan. Reportedly she woke up after Narcan administration; vomited and was agitated. Past Medical History Past Medical History (Chronic Problems): Chronic Problems (Last Reviewed 04/21/20 @ 02:[address] Chris Gill MD) Chronic respiratory failure with hypoxia (Chronic) Type 2 diabetes mellitus (Chronic) Essential hypertension (Chronic) Restrictive lung disease secondary to obesity (Chronic) Hyperglycemia (Chronic) Respiratory failure with hypoxia (Chronic) 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 (Chronic) cmH20 Anxiety (Chronic) Morbid obesity (Chronic) Hyperlipidemia (Chronic) Hyperglycemia due to type 2 diabetes mellitus (Chronic) Medical History: Medical History (Last Reviewed 04/21/20 @ 02:[address] Chris Gill MD) Type 2 diabetes mellitus (Chronic) E11.9 Old myocardial infarction (Inactive) I25.2 Essential hypertension (Chronic) I10 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 (Chronic) G47.33 23/17 cmH20 Anxiety (Chronic) F41.9 Morbid obesity (Chronic) E66.01 Hyperlipidemia (Chronic) E78.5 Hyperglycemia due to type 2 diabetes mellitus (Chronic) E11.65 Abscess L02.91 Abscess of vulva N76.4 diabetic abscess left vulval area (involving the genitocrural and pubic areas) Cellulitis L03.90 Hidradenitis L73.2 History of MRSA infection Z86.14 History of left heart catheterization (LHC) Onset Date: ~01/05/19 Z98.890 LEFT MAIN: Angiographically normal; LEFT ANTERIOR DECENDING ARTERY: Mild briding Mid LAD; CIRCUMFLEX ARTERY: Angiographically normal; RIGHT CORONARY ARTERY: Angiographically normal; per cath 01/05/19 NSTEMI (non-ST elevated myocardial infarction) I21.4 Necrotizing soft tissue infection M79.89 necrotizing diabetic abscess left inguinal area and vulval area (involving the genitocrural and mons pubis area) Non-healing open wound of left groin S31.104A Open wound of vulva with complication S31.40XA Pulmonary embolism I26.99 Soft tissue abscess of inguinal region L02.214 diabetic abscess left inguinal area Tobacco abuse Z72.0 Allergies cyclobenzaprine HCl [From Flexeril] Allergy (Verified 04/20/20 16:42) Hives venlafaxine [From Effexor] Adverse Reaction (Severe, Verified 04/20/20 16:42) unknown Home Medications: Ambulatory Orders Medication Instructions Recorded Buspirone HCl [Buspar] 5 mg PO BID PRN 09/29/13 Hydrochlorothiazide [Hctz] 25 mg PO DAILY 02/02/17 Multivit,Calc,Mins/Iron/Folic 1 ea PO DAILY 03/26/17 [Women's Daily Formula Caplet] Gabapentin [Neurontin] 900 mg PO TID 05/29/17 Compression Socks, Medium [Futuro 1 ea MC DAILY #1 ea 02/28/18 Restoring] Dulaglutide [Trulicity] 0.5 ml SQ QWEEK MDD 0.5ml 06/08/18 Furosemide 40 mg PO BID 12/15/18 Omeprazole 40 mg PO DAILY 12/15/18 Apixaban [Eliquis] 5 mg PO BID #120 tab 12/18/18 Insulin Glargine [Lantus SoloStar 70 units SUBCUT BID 01/04/19 Pen] Metformin HCl 1,000 mg PO DAILY 01/04/19 Oxygen, Home [Home Oxygen] 3 - 4 lpm NASAL DAILY 01/04/19 Aspirin E.C. [Ecotrin] 81 mg PO DAILY@0800 #30 tab 01/05/19 Atorvastatin Calcium 40 mg PO QHS #30 tab 01/05/19 Diltiazem CD [Cardizem CD] 120 mg PO DAILY #30 cap 01/05/19 Insulin Aspart [Novolog Flexpen] 38 units SUBCUT TIDCM 02/15/20 lisinopril 20 mg tablet 20 mg PO DAILY tab 03/01/20 loratadine 10 mg tablet 10 mg PO DAILY PRN tab 03/01/20 albuterol sulfate 2.5 mg INHALATION Q2H PRN PRN #90 03/29/20 ml Surgical History: Surgical History (Last Reviewed 04/21/20 @ 02:[address] Chris Gill MD) H/O arthroscopic knee surgery Z98.890 History of delivery Z98.891 History of cholecystectomy Z98.890, Z90.49 Surgical History: appendectomy, arthroscopy, knee, cholecystectomy, - - . Drainage of right groin abscess. Recent I&D of left groin abscess. 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 Chris Gill MD) Father CVA (cerebral vascular accident) Heart disease Diabetes Mother Thyroid disorder Review of Systems Constitutional: Denies: Chills, Fever, Weight Change HEENT: Denies: Head Aches, Sinus Congestion, Sinus Drainage Cardiovascular: Denies: Chest Pain, Palpitations Respiratory: Reports: Cough - Chronic, Shortness of Breath - Chronic. Denies: Shortness of breath at rest, Sputum production Gastrointestinal: Denies: Abdominal Pain, Nausea, Vomiting Genitourinary: Denies: Dysuria Musculoskeletal: Denies: Joint Pain, Joint Tenderness Skin: Reports: Skin Changes - Erythema of left leg. Denies: Rash, Wounds Neurological: Denies: Numbness, Tingling, Focal weakness Psychiatric: Denies: Anxiety, Depression, Homicidal Ideations, Suicidal Ideations Hematologic/ Lymphatic: Denies: Easy Bruising, Easy Bleeding VTE Information - Inpt Only VTE Present on Admission: No VTE Mechan Device Prophylaxis: None VTE Pharm Prophylaxis ordered?: No Reason prophylaxis not ordered:: Treatment Not Indicated - Home Eliquis continued Patient Problems: Active and Suspected Problems (Last Reviewed 04/21/20 @ 02:[address] Chris Gill MD) Opiate overdose (Acute) Cellulitis of leg (Acute) Altered mental status (Acute) KERRY (acute kidney injury) (Acute) Acute encephalopathy (Acute) Sepsis (Acute) - Physical Exam Vitals/I&O's: Vital Signs Temp Pulse Resp BP Pulse Ox 99.1 F 100 24 H 147/66 H 92 04/20/20 21:43 04/20/20 21:43 04/20/20 21:43 04/20/20 21:43 04/20/20 21:43 Oxygen Flow Rate (L/min) 3 Oxygen Delivery Method Nasal Cannula Weight: 169 kg Body Mass Index (BMI) 63.9 Finger Stick Blood Glucose 189 Intake and Output for Last 24 Hours 04/18/20 04/19/20 04/20/20 23:59 23:59 23:59 Intake Total 54 / 54 Balance 54 / 54 General: Alert, Oriented x3, Cooperative HEENT: Atraumatic, PERRLA, EOMI, Normocephalic Neck: Supple, No JVD, Negative Carotid Bruits Lungs: Diminished, Tachypneic Cardiovascular: Normal S1, Normal S2, No murmurs, Tachycardic Abdomen: Bowel Sounds Present, Soft, Non Tender Extremities: Capillary Refill Less than 3 Seconds, Edema - Left leg, Tenderness - Left leg Skin: No rashes, No breakdown, - - erythema of left leg Musculoskeletal: Tenderness - left leg Neurological: Cranial nerves II-XII grossly intact Psych/Mental Status: Normal Affect, Appropriate Laboratory Results 04/20/20 16:45: WBC 15.4 H, RBC 4.43, Hgb 11.4 L, Hct 40.9, MCV 92.3, MCH 25.7 L, MCHC 27.9 L, RDW Std Deviation 58.6 H, RDW Coeff of Darrion 17.6 H, Plt Count 254, MPV 10.2, Immature Gran % (Auto) 0.700, Neut % (Auto) 87.9 H, Lymph % (Auto) 7.5 L, Bureau % (Auto) 3.6, Eos % (Auto) 0.0, Baso % (Auto) 0.3, Absolute Neuts (auto) 13.5 H, Absolute Lymphs (auto) 1.16, Nucleated RBC % 0.3 04/20/20 16:45: Sodium 130 L, Potassium 5.1, Chloride 92 L, Carbon Dioxide 30.0, Anion Gap 8, BUN 38 H, Creatinine 1.77 H, Estim Creat Clear Calc 35.75, Est GFR (MDRD) Af Amer 40 L, Est GFR (MDRD) Non-Af 33 L, BUN/Creatinine Ratio 21.5 H, Glucose 378 H, Calcium 7.3 L, Total Bilirubin 0.30, AST 47 H, ALT 23, Alkaline Phosphatase 100, Total Protein 7.6, Albumin 2.7 L, Globulin 4.9 H, Albumin/Globulin Ratio 0.6 L 04/20/20 18:00: Specimen Type DAMION, Sample Site L BRACHIAL, VBG pH 7.38, VBG pO2 45 H, VBG O2 Sat (Calc) 80 H, VBG O2 Content 30, VBG Base Excess 3, POC Mix VBG pCO2 Pt Tmp 47.7, O2 Delivery Device Room Air, Blood Gas Notified Whom ED 04/20/20 19:20: Ethyl Alcohol 4.0 04/20/20 20:20: Urine Color Yellow, Urine Clarity Cloudy, Urine pH 6.0, Ur Specific [place] 1.020, Urine Protein 30 H, Urine Glucose (UA) 250 H, Urine Ketones Negative, Urine Occult Blood 50 H, Urine Nitrite Negative, Urine Bilirubin Negative, Urine Urobilinogen Normal, Ur Leukocyte Esterase 500 H, Urine RBC 0-5 SEEN, Urine WBC 10-25 SEEN, Ur Squamous Epith Cells 5-10 SEEN, Urine Bacteria 2+, Urine Mucus 0 SEEN 04/20/20 20:20: Urine Opiates Screen POSITIVE H, Urine Methadone Screen NEGATIVE, Ur Barbiturates Screen NEGATIVE, Ur Phencyclidine Scrn NEGATIVE, Ur Amphetamines Screen NEGATIVE, U Methamphetamin-MDMA NEGATIVE, U Benzodiazepines Scrn NEGATIVE, Urine Cocaine Screen NEGATIVE, U Cannabinoids Screen NEGATIVE, Ur Drug Screen Comment 04/20/20 21:40: Lactic Acid 1.5 Current Medications Albuterol Sulfate (Ventolin Aerosols) 2.5 mg INHALATION Q2H PRN PRN PRN Reason: SOB/Wheezing Apixaban (Eliquis) 5 mg PO BID [facility] Aspirin (Ecotrin) 81 mg PO DAILY@0800 KIAN Atorvastatin Calcium (Lipitor) 40 mg PO QHS KIAN Buspirone HCl (Buspar) 5 mg PO BID PRN PRN Reason: ANXIETY Dextrose (D50w Syringe) 0 gm IV X1 PRN; Protocol PRN Reason: Hypoglycemia Diltiazem HCl (Cardizem Cd) 120 mg PO DAILY KIAN Glucagon () 1 mg IM .X1 PRN PRN Reason: Hypoglycemia Cefazolin Sodium 2 gm/ Sodium (Chloride) 110 mls @ 150 mls/hr IV Q8 KIAN Sodium Chloride () 1,000 mls @ 100 mls/hr IV .Q10H KIAN Insulin Glargine (Lantus (Bkc)) 70 units SC BID KIAN Insulin Human Lispro (Humalog Kwikpen (Bkc)) 0 unit SC ACHS KIAN; Protocol Loratadine (Claritin) 10 mg PO DAILY PRN PRN Reason: ALLERGIES Non-Formulary Medication (Insulin Aspart [Novolog Flexpen]) 30 units subcut TIDCM KIAN Non-Formulary Medication (Multivit,Calc,Mins/Iron/Folic [Women's Daily Formula Caplet]) 1 ea PO DAILY KIAN Non-Formulary Medication (Omeprazole) 40 mg PO DAILY [facility] Non-Formulary Medication (Oxygen, Home [Home Oxygen]) 3 - 4 lpm NASAL DAILY KIAN Ondansetron HCl (Zofran) 4 mg IV Q8H PRN PRN PRN Reason: NAUSEA/VOMITING Assessment/Plan All Active Problems (Last Reviewed 04/21/20 @ 02:[address] Chris Gill MD) Opiate overdose (Acute) Cellulitis of leg (Acute) Altered mental status (Acute) KERRY (acute kidney injury) (Acute) Acute encephalopathy (Acute) Sepsis (Acute) The patient is a 44 year old F with a significant history of obesity; hypertension; type 2 diabetes; chronic hypoxemic respiratory failure; obstructive sleep apnea who presents at the emergency department with altered mental status after taking reportedly 4 tablets of Percocet within 30 minutes; also with signs and symptoms of cellulitis; and with SIRS criteria consistent with sepsis.. Acute encephalopathy secondary to likely opioid overdose. Positive opiates in the urine. Received Narcan at emergency department. Hold all narcotics. Hold home gabapentin. Sepsis Cellulitis of left leg Patient with tachycardia; tachypnea and leukocytosis. Signs of infection of the left leg. Received clindamycin emergency department. Will start patient on Ancef. Trend CBC and BMP. KERRY Creatinine on presentation was 1.77. Baseline creatinine is less than 1. Hold all nephrotoxic's. As such will hold hydrochlorothiazide; lisinopril and Lasix. IV hydration. Trend BMP. Diabetes mellitus Patient with hyperglycemia on presentation. Hold home Trulicity. Hold metformin in the hospital setting. Adjust basal and prandial insulin. Accu-Chek QA CHS with correction scale insulin. Calorie restricted diet of 1800 kcal/day. LOGAN BiPAP nightly Morbid obesity: BMI 56.3. Complicates care. Recommend lifestyle modification. Tobacco abuse: Counseled. Nicotine patch prescribed. DVT prophylaxis Already on Eliquis; continued. Inpatient E&M: 59158 Init Hosp L3
--- NOTE | 2020-04-20 22:45 | NURSING ---
This RN attempted to complete pt's admission. Pt very sleeping, snoring throughout. Pt woke to her name spoken, but would fall alseep before being able to answer question. After multiple times of saying pt's name and repeating questions pt states loudly, I don't know anything. This nurse did get through medication reconciliation, but was unable to complete the rest of the admission. Will continue to monitor and attempt at a later time, as pt becomes more alert. vehicle painter, Michelle bullock. Delroy, RN
[2020-04-20 22:50] LABS: Bedside Glucose 249 mg/dL (70-110)
[2020-04-20] MEDS: Insulin Lispro 100 UNIT/ML INSULN.PEN SC (22:56)
[2020-04-20] MEDS: Cefazolin 2 GM in 0.9% Normal Saline 100 ML IV (22:57)
[2020-04-20] MEDS: 0.9% Normal Saline 1,000 ML 100 ML IV (22:57)
--- NOTE | 2020-04-20 23:30 | NURSING ---
Bipap in pt's room alarming disconnect. Another nurse and this RN entered pt's room. Pt was coughing, and had torn bipap mask off of face. Bipap mask broken, unable to put back on pt. Placed back on 3L. Pt a little more alert, did give water and some nael crackers, pt did fine. Fell back asleep. CMast RN
--- NOTE | 2020-04-20 23:50 | CPS ---
placed pt on bipap-pt lasted 10 min and ripped off mask breaking it -placed back on 3 l/m by nurse
[2020-04-21 02:06] VITALS: BP 129/71; PULSE 101; RESP 12; TEMP 37.3; O2SAT 94
[2020-04-21 02:58] VITALS: PULSE 101
[2020-04-21] MEDS: Cefazolin 2 GM in 0.9% Normal Saline 100 ML IV (05:35)
[2020-04-21 06:20] LABS: Absolute Lymphocyte Count 1.99 X10^3/uL (0.83-4.51); Absolute Neutrophil Count 9.8 X10^3/uL (2.0-7.7); Basophil# 0.06 X10^3/uL; Basophil% 0.5 % (0-1); Eosinophil# 0.01 X10^3/uL; Eosinophils% 0.1 % (0-5); Hematocrit 39.9 % (37-47); Hemoglobin 11.6 g/dL (12.0-15.0); Lymphocyte # 1.99 X10^3/ul (4.0); Mean Corp Hgb Conc 29.1 g/dL (32-36); Mean Corpuscular Hgb 25.7 pg (27.0-32.0); Mean Corpuscular Volume 88.3 fL (81-99); Mean Platelet Vol. 10.2 fl (6.2-12.0); Monocyte# 0.47 X10^3/uL; Monocyte% 3.8 % (0-10); NRBC Flagged by Analyzer 0.3 % (0-5); Neutrophil # 9.81 X10^3/uL (2.7-7.7); Platelet Count 247 K/mm3 (150-450); RBC Distribution Width CV 17.1 % (11.6-14.6); RBC Distribution Width SD 54.4 fl (35.1-43.9); Red Blood Count 4.52 M/mm3 (4.2-5.4); White Blood Count 12.4 K/mm3 (4.4-11.0)
[2020-04-21 07:28] LABS: Anion Gap 5 (5-15); BUN 26 mg/dL (7-18); BUN/Creat Ratio 32.9 RATIO (10-20); Chloride 98 mmol/L (98-107); Creatinine, Serum 0.79 mg/dL (0.55-1.02); EST Glomerular Filtration Rate 84 mL/min (>60); Est Glom Filt Rate - Afr Amer 102 mL/min (>60); Estimated Creatinine Clearance 90.21 ml/min; Glucose 172 mg/dL (74-106); Potassium 4.1 mmol/L (3.5-5.1); Sodium Level 135 mmol/L (136-145)
[2020-04-21 07:45] VITALS: BP 136/63; PULSE 82; RESP 20; TEMP 36.6; O2SAT 94
[2020-04-21 07:50] VITALS: O2SAT 92
[2020-04-21] MEDS: busPIRone 5 MG Tablet PO (08:00)
[2020-04-21 08:15] LABS: Bedside Glucose 239 mg/dL (70-110)
[2020-04-21] MEDS: dilTIAZem CD 120 MG Capsule PO (09:37)
[2020-04-21] MEDS: Pantoprazole Sodium 40 MG Tablet PO (09:37)
[2020-04-21] MEDS: APIXABAN 5 MG TABLET PO (09:37)
[2020-04-21] MEDS: Aspirin E.C. 81 MG Tablet PO (09:37)
[2020-04-21] MEDS: Multivitamins,Ther W-Minerals Tablet 1 TABLET PO (09:37)
[2020-04-21] MEDS: Insulin Lispro 100 UNIT/ML INSULN.PEN SC ×2 (09:38→11:52)
[2020-04-21] MEDS: Insulin Lispro 100 UNIT/ML INSULN.PEN 30 UNIT SC ×2 (09:38→11:53)
[2020-04-21] MEDS: 0.9% Normal Saline 1,000 ML 100 ML IV (09:43)
[2020-04-21 10:13] VITALS: PULSE 66
[2020-04-21] MEDS: Cefadroxil 500 MG CAPSULE 1000 MG PO (11:02)
[2020-04-21 11:16] LABS: Bedside Glucose 185 mg/dL (70-110)
[2020-04-21 13:16] VITALS: BP 144/88; PULSE 93; RESP 18; TEMP 36.9; O2SAT 96
--- NOTE | 2020-04-21 13:30 | PCM.DC ---
- Discharge Diagnoses Current Active Problems: Current Active and Chronic Problems (Last Reviewed 04/21/20 @ 02:[address] Chris Gill MD) Opiate overdose (Acute) Altered mental status (Acute) Chronic respiratory failure with hypoxia (Chronic) KERRY (acute kidney injury) (Acute) Acute encephalopathy (Acute) Sepsis (Acute) Type 2 diabetes mellitus (Chronic) You will use the following diet at home:: Calorie/Carbohydrate Controlled (specify 1200, 1400, etc) Discharge Activity: Return to Normal Activity Call your doctor if you observe: Shortness of breath, Dizziness, Fainting spells, Chest pain Allergies/Adverse Reactions: Allergies cyclobenzaprine HCl [From Flexeril] Allergy (Verified 04/20/20 16:42) Hives venlafaxine [From Effexor] Adverse Reaction (Severe, Verified 04/20/20 16:42) unknown Medications to take at Discharge Buspirone HCl [Buspar] 5 mg PO BID PRN 09/29/13 Hydrochlorothiazide [Hctz] 25 mg PO DAILY 02/02/17 Multivit,Calc,Mins/Iron/Folic [Women's Daily Formula Caplet] 1 ea PO DAILY 03/26/17 Gabapentin [Neurontin] 900 mg PO TID 05/29/17 Compression Socks, Medium [Futuro Restoring] 1 ea MC DAILY #1 ea 02/28/18 Dulaglutide [Trulicity] 0.5 ml SQ QWEEK MDD 0.5ml 06/08/18 Furosemide 40 mg PO BID 12/15/18 Omeprazole 40 mg PO DAILY 12/15/18 Apixaban [Eliquis] 5 mg PO BID #120 tab 12/18/18 Insulin Glargine [Lantus SoloStar Pen] 70 units SUBCUT BID 01/04/19 Metformin HCl 1,000 mg PO DAILY 01/04/19 Oxygen, Home [Home Oxygen] 3 - 4 lpm NASAL DAILY 01/04/19 Aspirin E.C. [Ecotrin] 81 mg PO DAILY@0800 #30 tab 01/05/19 Atorvastatin Calcium 40 mg PO QHS #30 tab 01/05/19 Diltiazem CD [Cardizem CD] 120 mg PO DAILY #30 cap 01/05/19 Insulin Aspart [Novolog Flexpen] 38 units SUBCUT TIDCM 02/15/20 lisinopril 20 mg tablet 20 mg PO DAILY tab 04/01/20 loratadine 10 mg tablet 10 mg PO DAILY PRN tab 03/01/20 albuterol sulfate 2.5 mg INHALATION Q2H PRN PRN #90 ml 03/29/20 Cefadroxil [Duricef] 1,000 mg PO BID #14 cap 04/21/20 The following prescriptions were given: Cefadroxil [Duricef] 1,000 mg PO BID #14 cap Transmission Status: Pending to [facility] Primary Care Physician: Tino Oreilly MD [Primary Care Provider] - Please follow up with your Primary Care Physician in: 1 Week Test Results: Test results from this visit will be discussed in further detail at your follow-up appointment, if applicable. Proposed Discharge Date: 04/21/20
--- NOTE | 2020-04-21 13:35 | PCM.DC.SUM ---
<Miranda Collins - Last Filed: 04/21/20 13:54> Discharge Date and Diagnosis Date of Admission: 04/20/20 Date of Discharge: 04/21/20 - Primary Discharge Diagnosis Acute Problems: Active Problems (Last Reviewed 04/21/20 @ 02:[address] Chris Gill MD) 1. Acute encephalopathy secondary to opioid overdose 2. Acute UTI 3. Acute kidney injury 4. LOGAN with BiPAP noncompliance 5. Type 2 diabetes mellitus with polyneuropathy 6. Hypertension 7. Hyperlipidemia 8. 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 Tobacco dependence 10. Morbid obesity 11. Anxiety with depression - Secondary Discharge Diagnosis Chronic Problems: Chronic Problems (Last Reviewed 04/21/20 @ 02:[address] Chris Gill MD) Chronic respiratory failure with hypoxia (Chronic) Type 2 diabetes mellitus (Chronic) Essential hypertension (Chronic) Restrictive lung disease secondary to obesity (Chronic) Hyperglycemia (Chronic) Respiratory failure with hypoxia (Chronic) 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 (Chronic) cmH20 Anxiety (Chronic) Morbid obesity (Chronic) Hyperlipidemia (Chronic) Hyperglycemia due to type 2 diabetes mellitus (Chronic) Hospital Course and Treatment Imaging Results: Diagnostic Data Brain CT 04/20/20 19:46 IMPRESSION: Normal unenhanced CT scan of the brain. Electronically Signed: Nii Polo MD at 20:25 EDT , Service support , Operations: None Procedures: None Summary of Care Provided: The patient is a 44 year old F admitted 04/20/2020 due to altered mental status. 1. Acute encephalopathy secondary to opioid overdose-urine tox positive for opiates. Patient reports she took several Percocets. She states she is prescribed Percocet however this is untrue per pharmacy records. Patient received Narcan in ER. She has since been alert and oriented and demanding to go home. Recommended further monitoring overnight however given patient is insistent upon going home and her mental status is now appropriate, patient discharged home. Close follow-up with primary care physician. 2. Acute UTI-urine culture pending at discharge. Discharged on Duricef 1000 mg twice daily. 3. Acute kidney injury-resolved following IV fluids. 4. LOGAN with BiPAP noncompliance, chronic hypoxic respiratory failure-stable on home O2 requirements. Patient noncompliant with BiPAP. Encouraged BiPAP use. 5. Type 2 diabetes mellitus with polyneuropathy-continue home insulin regimen. 6. Hypertension-stable, continue home Cardizem, Lasix, hydrochlorothiazide, lisinopril regimen. 7. Hyperlipidemia-continue statin. 8. 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 Tobacco dependence-encouraged cessation. 10. Morbid obesity-encouraged diet and lifestyle modifications. 11. Anxiety with depression-continue BuSpar. Patient seen and examined prior to discharge. Physical assessment as noted below. Recommended patient stay overnight for further monitoring however patient insistent upon discharge home. Recommend close follow-up with PCP. This patient was seen by FADUMO Bangura under the supervision of Dr. Neville. - Physical Exam Vitals/I&O's: Vital Signs Temp Pulse Resp BP Pulse Ox 98.5 F 93 18 144/88 H 96 04/21/20 13:16 04/21/20 13:16 04/21/20 13:16 04/21/20 13:16 04/21/20 13:16 Oxygen Flow Rate (L/min) 5 Oxygen Delivery Method Nasal Cannula Weight: 359 lb 5.655 oz Body Mass Index (BMI) 56.2 Finger Stick Blood Glucose 189 Intake and Output for Last 24 Hours 04/19/20 04/20/20 04/21/20 23:59 23:59 23:59 Intake Total 189 / 189 3.33 / 192.33 Balance 189 / 189 1922.33 / 1922.33 General: Alert, Oriented x3, Cooperative HEENT: Atraumatic, PERRLA, EOMI, Normocephalic Neck: Supple, No JVD, Negative Carotid Bruits Lungs: Clear to auscultation, Diminished Cardiovascular: Regular rate, Regular Rhythm, Normal S1, Normal S2, No murmurs Abdomen: Bowel Sounds Present, Soft, Non Tender, Non-Distended, Obese Extremities: No clubbing, No cyanosis, Capillary Refill Less than 3 Seconds, Edema - Nonpitting bilateral lower extremity Skin: No rashes, No breakdown Musculoskeletal: No Tenderness to Palpation of Joints or Extremities Neurological: Cranial nerves II-XII grossly intact, Neuro grossly intact Psych/Mental Status: Anxious, Impulsive Laboratory Results 04/20/20 16:45: WBC 15.4 H, RBC 4.43, Hgb 11.4 L, Hct 40.9, MCV 92.3, MCH 25.7 L, MCHC 27.9 L, RDW Std Deviation 58.6 H, RDW Coeff of Darrion 17.6 H, Plt Count 254, MPV 10.2, Immature Gran % (Auto) 0.700, Neut % (Auto) 87.9 H, Lymph % (Auto) 7.5 L, [place] % (Auto) 3.6, Eos % (Auto) 0.0, Baso % (Auto) 0.3, Absolute Neuts (auto) 13.5 H, Absolute Lymphs (auto) 1.16, Nucleated RBC % 0.3 04/20/20 16:45: Sodium 130 L, Potassium 5.1, Chloride 92 L, Carbon Dioxide 30.0, Anion Gap 8, BUN 38 H, Creatinine 1.77 H, Estim Creat Clear Calc 35.75, Est GFR (MDRD) Af Amer 40 L, Est GFR (MDRD) Non-Af 33 L, BUN/Creatinine Ratio 21.5 H, Glucose 378 H, Calcium 7.3 L, Total Bilirubin 0.30, AST 47 H, ALT 23, Alkaline Phosphatase 100, Total Protein 7.6, Albumin 2.7 L, Globulin 4.9 H, Albumin/Globulin Ratio 0.6 L 04/20/20 18:00: Specimen Type DAMION, Sample Site L BRACHIAL, VBG pH 7.38, VBG pO2 45 H, VBG O2 Sat (Calc) 80 H, VBG O2 Content 30, VBG Base Excess 3, POC Mix VBG pCO2 Pt Tmp 47.7, O2 Delivery Device Room Air, Blood Gas Notified Whom ED 04/20/20 19:20: Ethyl Alcohol 4.0 04/20/20 20:20: Urine Color Yellow, Urine Clarity Cloudy, Urine pH 6.0, Ur Specific [place] 1.020, Urine Protein 30 H, Urine Glucose (UA) 250 H, Urine Ketones Negative, Urine Occult Blood 50 H, Urine Nitrite Negative, Urine Bilirubin Negative, Urine Urobilinogen Normal, Ur Leukocyte Esterase 500 H, Urine RBC 0-5 SEEN, Urine WBC 10-25 SEEN, Ur Squamous Epith Cells 5-10 SEEN, Urine Bacteria 2+, Urine Mucus 0 SEEN 04/20/20 20:20: Urine Opiates Screen POSITIVE H, Urine Methadone Screen NEGATIVE, Ur Barbiturates Screen NEGATIVE, Ur Phencyclidine Scrn NEGATIVE, Ur Amphetamines Screen NEGATIVE, U Methamphetamin-MDMA NEGATIVE, U Benzodiazepines Scrn NEGATIVE, Urine Cocaine Screen NEGATIVE, U Cannabinoids Screen NEGATIVE, Ur Drug Screen Comment 04/20/20 21:40: Lactic Acid 1.5 04/20/20 22:40: POC Glucose 249 H 04/21/20 05:14: Sodium 135 L, Potassium 4.1, Chloride 98, Carbon Dioxide 32.0, Anion Gap 5, BUN 26 H, Creatinine 0.79, Estim Creat Clear Calc 90.21, Est GFR (MDRD) Af Amer 102, Est GFR (MDRD) Non-Af 84, BUN/Creatinine Ratio 32.9 H, Glucose 172 H, Calcium 8.0 L 04/21/20 06:12: WBC 12.4 H, RBC 4.52, Hgb 11.6 L, Hct 39.9, MCV 88.3, MCH 25.7 L, MCHC 29.1 L, RDW Std Deviation 54.4 H, RDW Coeff of Darrion 17.1 H, Plt Count 247, MPV 10.2, Immature Gran % (Auto) 0.600, Neut % (Auto) 79.0 H, Lymph % (Auto) 16.0 L, [place] % (Auto) 3.8, Eos % (Auto) 0.1, Baso % (Auto) 0.5, Absolute Neuts (auto) 9.8 H, Absolute Lymphs (auto) 1.99, Nucleated RBC % 0.3 04/21/20 07:59: POC Glucose 239 H 04/21/20 11:01: POC Glucose 185 H Current Medications Albuterol Sulfate (Ventolin Aerosols) 2.5 mg INHALATION Q2H PRN PRN PRN Reason: SOB/Wheezing Apixaban (Eliquis) 5 mg PO BID REPLACED BY [facility] Last Admin: 04/21/20 09:37 Dose: 5 mg Documented by: Aspirin (Ecotrin) 81 mg PO DAILY@0800 REPLACED BY [facility] Last Admin: 04/21/20 09:37 Dose: 81 mg Documented by: Atorvastatin Calcium (Lipitor) 40 mg PO QHS REPLACED BY [facility] Last Admin: 04/20/20 23:20 Dose: Not Given Documented by: Buspirone HCl (Buspar) 5 mg PO BID PRN PRN PRN Reason: ANXIETY Last Admin: 04/21/20 08:00 Dose: 5 mg Documented by: Cefadroxil (Duricef) 1,000 mg PO BID REPLACED BY [facility] Last Admin: 04/21/20 11:02 Dose: 1,000 mg Documented by: Dextrose (D50w Syringe) 0 gm IV X1 PRN; Protocol PRN Reason: Hypoglycemia Diltiazem HCl (Cardizem Cd) 120 mg PO DAILY REPLACED BY [facility] Last Admin: 04/21/20 09:37 Dose: 120 mg Documented by: Glucagon () 1 mg IM .X1 PRN PRN Reason: Hypoglycemia Hydralazine HCl (Apresoline Iv) 5 mg IV Q4H PRN PRN PRN Reason: Systolic blood pressure > 160 Sodium Chloride () 1,000 mls @ 100 mls/hr IV .Q10H REPLACED BY [facility] Last Infusion: 04/21/20 13:33 Dose: Infused Documented by: Sodium Chloride () 250 mls @ 15 mls/hr IV .[id number] PRN PRN Reason: Saline Flush Sodium Chloride () 250 mls @ 15 mls/hr IV .[id number] PRN PRN Reason: Additional IVPB Infusion Insulin Glargine (Lantus (Bkc)) 70 units SC BID REPLACED BY [facility] Last Admin: 04/21/20 09:37 Dose: 70 units Documented by: Insulin Human Lispro (Humalog Kwikpen (Bkc)) 0 unit SC ACHS REPLACED BY [facility]; Protocol Last Admin: 04/21/20 11:52 Dose: 2 units Documented by: Insulin Human Lispro (Humalog Kwikpen (Bkc)) 30 unit SC TIDCM REPLACED BY [facility] Last Admin: 04/21/20 11:53 Dose: 30 units Documented by: Loratadine (Claritin) 10 mg PO DAILY PRN PRN PRN Reason: ALLERGIES Multivitamins/Minerals (Multivitamin With Minerals (Bkc)) 1 tablet PO DAILY@0800 REPLACED BY [facility] Last Admin: 04/21/20 09:37 Dose: 1 tablet Documented by: Nicotine (Nicoderm Cq (Pbkc)) 21 mg TRANSDERM. DAILY REPLACED BY [facility] Last Admin: 04/21/20 05:35 Dose: 21 mg Documented by: Ondansetron HCl (Zofran) 4 mg IV Q8H PRN PRN PRN Reason: NAUSEA/VOMITING Pantoprazole Sodium (Protonix) 40 mg PO DAILY KIAN Last Admin: 04/21/20 09:37 Dose: 40 mg Documented by: Sodium Chloride () 10 - 40 ml IV UD PRN PRN Reason: SALINE FLUSH Discharge Diet: Low fat/ Low Cholesterol, Carb Control Diet Discharge Activity: Return to Normal Activity Call your doctor if you observe: Shortness of breath, Dizziness, Fainting spells, Chest pain Home Medications: Medications to take at Discharge Buspirone HCl [Buspar] 5 mg PO BID PRN 09/29/13 Hydrochlorothiazide [Hctz] 25 mg PO DAILY 02/02/17 Multivit,Calc,Mins/Iron/Folic [Women's Daily Formula Caplet] 1 ea PO DAILY 03/26/17 Gabapentin [Neurontin] 900 mg PO TID 05/29/17 Compression Socks, Medium [Futuro Restoring] 1 ea MC DAILY #1 ea 02/28/18 Dulaglutide [Trulicity] 0.5 ml SQ QWEEK MDD 0.5ml 06/08/18 Furosemide 40 mg PO BID 12/15/18 Omeprazole 40 mg PO DAILY 12/15/18 Apixaban [Eliquis] 5 mg PO BID #120 tab 12/18/18 Insulin Glargine [Lantus SoloStar Pen] 70 units SUBCUT BID 01/04/19 Metformin HCl 1,000 mg PO DAILY 01/04/19 Oxygen, Home [Home Oxygen] 3 - 4 lpm NASAL DAILY 01/04/19 Aspirin E.C. [Ecotrin] 81 mg PO DAILY@0800 #30 tab 01/05/19 Atorvastatin Calcium 40 mg PO QHS #30 tab 01/05/19 Diltiazem CD [Cardizem CD] 120 mg PO DAILY #30 cap 01/05/19 Insulin Aspart [Novolog Flexpen] 38 units SUBCUT TIDCM 02/15/20 lisinopril 20 mg tablet 20 mg PO DAILY tab 03/01/20 loratadine 10 mg tablet 10 mg PO DAILY PRN tab 03/01/20 albuterol sulfate 2.5 mg INHALATION Q2H PRN PRN #90 ml 03/29/20 Cefadroxil [Duricef] 1,000 mg PO BID #14 cap 04/21/20 Following Prescrptions Were Given to Patient: Cefadroxil [Duricef] 1,000 mg PO BID #14 cap Transmission Status: Received by [facility] Primary Care Physician: Tino Oreilly MD [Primary Care Provider] - Please follow up with your Primary Care Physician in: 1 Week Disposition: Home Minutes spent on discharge:: 35 Patient Condition:: Stable Medical Necessity - Tobacco Use Smoking Status: Current every day smoker Tobacco Use: Cigarettes Meaningful Use Info Meaningful Use Diagnoses (Choose all that apply): None applicable <Ling Neville - Last Filed: 04/21/20 14:44> Discharge Date and Diagnosis - Secondary Discharge Diagnosis Chronic Problems: Chronic Problems (Last Updated 04/21/20 @ 13:35 by FADUMO Bangura) Chronic respiratory failure with hypoxia (Chronic) Type 2 diabetes mellitus (Chronic) Essential hypertension (Chronic) Restrictive lung disease secondary to obesity (Chronic) Hyperglycemia (Chronic) Respiratory failure with hypoxia (Chronic) 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 (Chronic) / cmH20 Anxiety (Chronic) Morbid obesity (Chronic) Hyperlipidemia (Chronic) Hyperglycemia due to type 2 diabetes mellitus (Chronic) Hospital Course and Treatment Summary of Care Provided: Patient seen by Miranda THORNE under my supervision The patient is a 44 year old F with an extensive PMH as outlined, who was admitted with altered mental status. She had apparently taken 4 tablets of Percocet in 30 mins which she claims she was prescribed but there was no record of it from pharmacy records. He was administered Narcan which helped her become alert and oriented. Patient was also noted to have redness and swelling of her left leg illness admitted and managed for sepsis due to cellulitis. She was started on IV cefazolin. Acute encephalopathy resolved after she was given the Narcan. Patient remained stable and demanded to be discharged home. UA on admission showed evidence of UTI. On day of discharge, there was no evidence of cellulitis of the left lower extremity as she had minimal redness and no tenderness or differential warmth. At patient's insistence, she was discharged home on 04/21/2020 she was discharged with a prescription for p.o. Duricef. She is follow-up with her primary care doctor in 1 to 2 weeks. Patient seen and examined prior to discharge. She had no complaints and felt well. Review of systems otherwise negative. Labs and vitals reviewed. Home medication reviewed and reconciled. o/e: Vital Signs Temp Pulse Resp BP Pulse Ox 98.5 F 93 18 144/88 H 96 04/21/20 13:16 04/21/20 13:16 04/21/20 13:16 04/21/20 13:16 04/21/20 13:16 ] General: Alert, Oriented x3, Cooperative HEENT: Atraumatic, PERRLA, EOMI, Normocephalic Neck: Supple, No JVD, Negative Carotid Bruits Lungs: Clear to auscultation, Diminished Cardiovascular: Regular rate, Regular Rhythm, Normal S1, Normal S2, No murmurs Abdomen: Bowel Sounds Present, Soft, Non Tender, Non-Distended, Obese Extremities: No clubbing, No cyanosis, Capillary Refill Less than 3 Seconds, Edema - Nonpitting 1+ bilateral lower extremity Skin: No rashes, No breakdown, no differential warmth or erythema Musculoskeletal: No Tenderness to Palpation of Joints or Extremities Neurological: Cranial nerves II-XII grossly intact, Neuro grossly intact Psych/Mental Status: Anxious, Impulsive Plan is for discharge home on p.o. Duricef thousand milligrams twice daily for 7 days. Rest as per Miranda Collins NP-Juan José's notes which I have reviewed and endorsed. - Physical Exam Vitals/I&O's: Vital Signs Temp Pulse Resp BP Pulse Ox 98.5 F 93 18 144/88 H 96 04/21/20 13:16 04/21/20 13:16 04/21/20 13:16 04/21/20 13:16 04/21/20 13:16 Oxygen Flow Rate (L/min) 5 Oxygen Delivery Method Nasal Cannula Weight: 359 lb 5.655 oz Body Mass Index (BMI) 56.2 Finger Stick Blood Glucose 189 Intake and Output for Last 24 Hours 04/19/20 04/20/20 04/21/20 23:59 23:59 23:59 Intake Total 189 / 189 Balance 189 / 189 Laboratory Results 04/20/20 16:45: WBC 15.4 H, RBC 4.43, Hgb 11.4 L, Hct 40.9, MCV 92.3, MCH 25.7 L, MCHC 27.9 L, RDW Std Deviation 58.6 H, RDW Coeff of Darrion 17.6 H, Plt Count 254, MPV 10.2, Immature Gran % (Auto) 0.700, Neut % (Auto) 87.9 H, Lymph % (Auto) 7.5 L, [place] % (Auto) 3.6, Eos % (Auto) 0.0, Baso % (Auto) 0.3, Absolute Neuts (auto) 13.5 H, Absolute Lymphs (auto) 1.16, Nucleated RBC % 0.3 04/20/20 16:45: Sodium 130 L, Potassium 5.1, Chloride 92 L, Carbon Dioxide 30.0, Anion Gap 8, BUN 38 H, Creatinine 1.77 H, Estim Creat Clear Calc 35.75, Est GFR (MDRD) Af Amer 40 L, Est GFR (MDRD) Non-Af 33 L, BUN/Creatinine Ratio 21.5 H, Glucose 378 H, Calcium 7.3 L, Total Bilirubin 0.30, AST 47 H, ALT 23, Alkaline Phosphatase 100, Total Protein 7.6, Albumin 2.7 L, Globulin 4.9 H, Albumin/Globulin Ratio 0.6 L 04/20/20 18:00: Specimen Type DAMION, Sample Site L BRACHIAL, VBG pH 7.38, VBG pO2 45 H, VBG O2 Sat (Calc) 80 H, VBG O2 Content 30, VBG Base Excess 3, POC Mix VBG pCO2 Pt Tmp 47.7, O2 Delivery Device Room Air, Blood Gas Notified Whom ED 04/20/20 19:20: Ethyl Alcohol 4.0 04/20/20 20:20: Urine Color Yellow, Urine Clarity Cloudy, Urine pH 6.0, Ur Specific [place] 1.020, Urine Protein 30 H, Urine Glucose (UA) 250 H, Urine Ketones Negative, Urine Occult Blood 50 H, Urine Nitrite Negative, Urine Bilirubin Negative, Urine Urobilinogen Normal, Ur Leukocyte Esterase 500 H, Urine RBC 0-5 SEEN, Urine WBC 10-25 SEEN, Ur Squamous Epith Cells 5-10 SEEN, Urine Bacteria 2+, Urine Mucus 0 SEEN 04/20/20 20:20: Urine Opiates Screen POSITIVE H, Urine Methadone Screen NEGATIVE, Ur Barbiturates Screen NEGATIVE, Ur Phencyclidine Scrn NEGATIVE, Ur Amphetamines Screen NEGATIVE, U Methamphetamin-MDMA NEGATIVE, U Benzodiazepines Scrn NEGATIVE, Urine Cocaine Screen NEGATIVE, U Cannabinoids Screen NEGATIVE, Ur Drug Screen Comment 04/20/20 21:40: Lactic Acid 1.5 04/20/20 22:40: POC Glucose 249 H 04/21/20 05:14: Sodium 135 L, Potassium 4.1, Chloride 98, Carbon Dioxide 32.0, Anion Gap 5, BUN 26 H, Creatinine 0.79, Estim Creat Clear Calc 90.21, Est GFR (MDRD) Af Amer 102, Est GFR (MDRD) Non-Af 84, BUN/Creatinine Ratio 32.9 H, Glucose 172 H, Calcium 8.0 L 04/21/20 06:12: WBC 12.4 H, RBC 4.52, Hgb 11.6 L, Hct 39.9, MCV 88.3, MCH 25.7 L, MCHC 29.1 L, RDW Std Deviation 54.4 H, RDW Coeff of Darrion 17.1 H, Plt Count 247, MPV 10.2, Immature Gran % (Auto) 0.600, Neut % (Auto) 79.0 H, Lymph % (Auto) 16.0 L, [place] % (Auto) 3.8, Eos % (Auto) 0.1, Baso % (Auto) 0.5, Absolute Neuts (auto) 9.8 H, Absolute Lymphs (auto) 1.99, Nucleated RBC % 0.3 04/21/20 07:59: POC Glucose 239 H 04/21/20 11:01: POC Glucose 185 H Current Medications Albuterol Sulfate (Ventolin Aerosols) 2.5 mg INHALATION Q2H PRN PRN PRN Reason: SOB/Wheezing Apixaban (Eliquis) 5 mg PO BID REPLACED BY [facility] Last Admin: 04/21/20 09:37 Dose: 5 mg Documented by: Aspirin (Ecotrin) 81 mg PO DAILY@0800 REPLACED BY [facility] Last Admin: 04/21/20 09:37 Dose: 81 mg Documented by: Atorvastatin Calcium (Lipitor) 40 mg PO QHS REPLACED BY [facility] Last Admin: 04/20/20 23:20 Dose: Not Given Documented by: Buspirone HCl (Buspar) 5 mg PO BID PRN PRN PRN Reason: ANXIETY Last Admin: 04/21/20 08:00 Dose: 5 mg Documented by: Cefadroxil (Duricef) 1,000 mg PO BID REPLACED BY [facility] Last Admin: 04/21/20 11:02 Dose: 1,000 mg Documented by: Dextrose (D50w Syringe) 0 gm IV X1 PRN; Protocol PRN Reason: Hypoglycemia Diltiazem HCl (Cardizem Cd) 120 mg PO DAILY REPLACED BY [facility] Last Admin: 04/21/20 09:37 Dose: 120 mg Documented by: Glucagon () 1 mg IM .X1 PRN PRN Reason: Hypoglycemia Hydralazine HCl (Apresoline Iv) 5 mg IV Q4H PRN PRN PRN Reason: Systolic blood pressure > 160 Sodium Chloride () 1,000 mls @ 100 mls/hr IV .Q10H REPLACED BY [facility] Last Infusion: 04/21/20 13:33 Dose: Infused Documented by: Sodium Chloride () 250 mls @ 15 mls/hr IV .[id number] PRN PRN Reason: Saline Flush Sodium Chloride () 250 mls @ 15 mls/hr IV .[id number] PRN PRN Reason: Additional IVPB Infusion Insulin Glargine (Lantus (Bk)) 70 units SC BID REPLACED BY [facility] Last Admin: 04/21/20 09:37 Dose: 70 units Documented by: Insulin Human Lispro (Humalog Kwikpen (Bk)) 0 unit SC ACHS REPLACED BY [facility]; Protocol Last Admin: 04/21/20 11:52 Dose: 2 units Documented by: Insulin Human Lispro (Humalog Kwikpen (Bkc)) 30 unit SC TIDCM REPLACED BY [facility] Last Admin: 04/21/20 11:53 Dose: 30 units Documented by: Loratadine (Claritin) 10 mg PO DAILY PRN PRN PRN Reason: ALLERGIES Multivitamins/Minerals (Multivitamin With Minerals (Bkc)) 1 tablet PO DAILY@0800 REPLACED BY [facility] Last Admin: 04/21/20 09:37 Dose: 1 tablet Documented by: Nicotine (Nicoderm Cq (Pb)) 21 mg TRANSDERM. DAILY REPLACED BY [facility] Last Admin: 04/21/20 05:35 Dose: 21 mg Documented by: Ondansetron HCl (Zofran) 4 mg IV Q8H PRN PRN PRN Reason: NAUSEA/VOMITING Pantoprazole Sodium (Protonix) 40 mg PO DAILY REPLACED BY [facility] Last Admin: 04/21/20 09:37 Dose: 40 mg Documented by: Sodium Chloride () 10 - 40 ml IV UD PRN PRN Reason: SALINE FLUSH Inpatient E&M: 82792 Disch Hosp
--- NOTE | 2020-04-21 15:12 | CASEMGMT ---
LORENZO GARCÍA assessment: Face to Face with patient for initial transition planning/care coordination assessment. LORENZO GARCÍA introduced self and role at [facility], pt voices understanding and consents to assessment at this time. Pt is A/Ox4 at this time and answers questions appropriately. Pt is sitting up on side of bed during assessment, but then attempts to get up to bathroom during assessment and gets all iv tubing/O2 tubing caught up in the wheels of her IV pole, so Angy VENTURA aware, voices understanding. Care providers, pharmacy, and demographics verified at this time. Presentation: Pt presents with increased fatigue/SOB but states chronic SOB Admitting dx: Acute encephalopathy PCP: [facility] Specialists: Pt states no current specialists. [facility]erred [facility] Insurance: [facility] Prescription Benefit: [facility] Living Will/HPOA: Pt does not have LW/HPOA and declines AD info at this time. LNOK: Remedios Wallace, mother; Naveed Gordon, daughter Living Arrangements: Pt states she lives with her grandson, cousin, and nephew in a home with a flight of stairs and states no concerns at home at this time. Pt states is independent with ADL's. Transportation: Pt states daughter drives and states no transportation concerns at this time. DME/HHC: Pt states is on 3liters of home oxygen and has a bipap(she does not have mask as she was non-compliant and insurance will not pay for another). Pt states no need for any further DME at this time. Pt states no hx of HHC or SNF in the past. Pt states no concerns with going home at time of discharge. Pt states is on disability. Pt states smokes a pack of cigarettes daily, does not drink ETOH, and denies use of recreational drugs. Pt states no further concerns/needs at this time. CM to follow for any further discharge planning/needs. Advised pt to ask for CM if any further questions/concerns/needs arise, voices understanding. Pt Goal: Home Plan: Home [place] LORENZO GARCÍA
--- NOTE | 2020-04-21 15:19 | NURSING ---
Patient was discharged per her request. Her daughter brought in her home oxygen canister, however, it was empty. This RN notified pt that she should not leave hospital without oxygen. Patient notified this RN that she was leaving whether we consented or not and that she would be fine as she lives a minute away. She states her daughter is downstairs waiting and she is going. Pt assisted downstairs per her request and assisted into waiting vehicle.
== END 2020-04-21 14:07 | disposition home or self-care (01) ==
LOC: ED 21:19 → PCU 04-21 00:22
PROVIDERS: Admitting Provider Hospitalist; Emergency Provider Emergency Medicine; PCP Family Medicine; Visit Provider Student in an Organized Health Care Education/Training Program
DX: T40.2X1A Poisoning by other opioids, accidental (unintentional), initial encounter (principal); G92 Toxic encephalopathy; N39.0 Urinary tract infection, site not specified; N17.9 Acute kidney failure, unspecified; G47.33 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 (adult) (pediatric); E11.42 Type 2 diabetes mellitus with diabetic polyneuropathy; J96.11 Chronic respiratory failure with hypoxia; E66.01 Morbid (severe) obesity due to excess calories; E78.5 Hyperlipidemia, unspecified; F17.210 Nicotine dependence, cigarettes, uncomplicated; F41.9 Anxiety disorder, unspecified; I10 Essential (primary) hypertension; L03.116 Cellulitis of left lower limb; I25.2 Old myocardial infarction; Z79.01 Long term (current) use of anticoagulants; Z79.4 Long term (current) use of insulin; Z79.82 Long term (current) use of aspirin; Z79.899 Other long term (current) drug therapy; Z86.14 Personal history of Methicillin resistant Staphylococcus aureus infection; Z99.81 Dependence on supplemental oxygen; Z86.711 Personal history of pulmonary embolism; Z91.19 Patient's noncompliance with other medical treatment and regimen; Z79.02 Long term (current) use of antithrombotics/antiplatelets; F32.9 Major depressive disorder, single episode, unspecified
CPT/HCPCS: 36415; 36600; 70450; 80048; 80053; 80307; 80320; 81001; 82803; 82962; 83605; 85025; 87040; 87086; 94002; 96361; 96365; 96366; 96375; 97802; 99218; 99285; 99406; J7030; J7050; A4216; G0378; G0480

== ENCOUNTER 2020-08-19 20:42 | Inpatient (IN) | payer MEDICAID, SELFPAY ==
[2020-08-19] VITALS (9 sets, daily range): BP systolic 102–116; BP diastolic 54–84; PULSE 81–94; RESP 15–24; TEMP 36.6–37; O2SAT 92–97; BMI 58.2; BMI 62.4
[2020-08-19] MEDS: Naloxone 2 MG/2 ML Syringe IV ×2 (21:13→23:58)
--- NOTE | 2020-08-19 21:25 | EKG12_ITS ---
Test Reason : SOB Blood Pressure : / mmHG Vent. Rate : 088 BPM Atrial Rate : 088 BPM P-R Int : 136 ms QRS Dur : 088 ms QT Int : 360 ms P-R-T Axes : 067 012 065 degrees QTc Int : 435 ms Normal sinus rhythm Normal ECG Confirmed by HASMUKH LORA, LILIANA ([id number]), restaurant expeditor JESSICA WARREN ([id number]) on 08/22/2020 1:31:12 PM Referred By: Chris Gill Confirmed By:LILIANA NOE MD
--- NOTE | 2020-08-19 21:28 | ED.DCSUM_ITS ---
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 She apparently was desaturating on her baseline of 6 L nasal cannula to the mid 70s. Upon arrival to the emerge department patient sleeping but is arousable to answer questions. She does fall back asleep after a few word answers. During that time she does answer questions appropriately. EMS did give a dose of Solu-Medrol the patient was having significant wheezing. Reviewing the patient's medical record she does have a history of opioid overdose. She was given a dose of Narcan and she did seem to wake up more. At that time she states that she has been coughing more over the past couple of days. Bringing up a green sputum. She does not know any sick contacts or covert exposures. She denies any nausea/vomiting or diarrhea. No urinary symptoms. She does have swelling in her lower extremities bilaterally which is chronic for her. States she does have a history of PE. Last episode was 1 year ago and she has been on Eliquis. She denies any associated chest pain. She is still a smoker with her history of COPD. Past Medical History - Allergies and Home Meds Allergies/Adverse Reactions: Allergies cyclobenzaprine HCl [From Flexeril] Allergy (Verified 08/19/20 20:49) Hives venlafaxine [From Effexor] Adverse Reaction (Severe, Verified 08/19/20 20:49) unknown Prior records reviewed: Yes Past Medical History: - - Diabetes, PE, COPD, CAD Surgical History: appendectomy, arthroscopy, knee, cholecystectomy, - - C- section. Drainage of right groin abscess. Recent I&D of left groin abscess. Smoking Status: Current every day smoker - Family History Maternal Family History: Family History (Last Reviewed 08/20/20 @ 01:[address] Chris Gill MD) Father CVA (cerebral vascular accident) Heart disease Diabetes Mother Thyroid disorder Family History: Reports: No pertinent history Review of Systems All systems negative except as indicated General: Denies: Chills, Fever, Sweats Eyes: Denies: Visual changes - bilaterally, Diplopia ENT: Denies: Rhinorrhea, Sore throat Cardiovascular: Denies: Chest pain, Palpitations Respiratory: Reports: Dyspnea, Cough, Sputum Gastrointestinal: Denies: Abdominal pain, Nausea, Vomiting, Diarrhea Genitourinary: Denies: Dysuria, Hematuria, Frequency Musculoskeletal: Denies: Back pain, Extremity Pain Skin: Denies: Rash, Wounds Neurological: Denies: Headache, Weakness, Numbness Physical Exam Vital Signs/Narrative: Vital Signs Temp Pulse Resp BP Pulse Ox 08/19/20 20:47 97.9 F 88 15 111/82 H 92 Inital Vital Signs reviewed: Yes General: Obese, No Acute Distress Head: Normocephalic, Atraumatic Eyes: Perrl, EOMI ENT: Moist mucous membranes, No rhinorrhea Neck: Supple, Nontender Cardiovascular: Regular rate, Regular rhythm, No murmurs Respiratory: No distress, Chest nontender, Wheezing, Decreased Air Movement Abdomen: Soft, Nontender, Nondistended, Normal bowel sounds Back: Nontender, Normal Inspection Extremities: Edema - bilateral, Calf Tenderness - bilateral Skin: Normal color, No rash Neurological: Alert, Oriented x3, Cranial nerves II-XII grossly intact, Normal Strength, Normal Sensation, - - Prior to Narcan patient was sleeping in between questioning. Post Narcan she is more responsive and answering in full sentences. Psychological: Normal affect, Normal Mood Diagnostic/Tx/Re-eval - EKG Initial EKG Interpretation: - - Rate of 88 bpm and normal sinus rhythm. Normal intervals. Normal axis. No ST elevations or depressions appreciated. No T wave abnormalities. - Medical Decision Making Patient presents to the ED for hypoxia and decreased responsiveness. She did desaturate for EMS. Upon arrival to the ED she is on her baseline 6 L of oxygen by nasal cannula and satting well. She did require Narcan and became more responsive. She is coughing during exam. Will check EKG, chest x-ray basic lab work. Throughout ED stay her mental status did wax and wane. We did obtain an ABG patient's ABG showed her to be significantly hypercapnic which is likely con tributing to her altered mental status. This is acute on chronic. She was hypoxic as well. She was started on BiPAP. We did obtain a CT scan of the chest which did not reveal any acute intrathoracic abnormality. Her creatinine is elevated past her baseline. Lactic acid is mildly elevated as well. Given a bolus of normal saline. I do not believe that this is a heart failure exacerbation. Will be cautious with IV fluids though. She does have an elevated white blood cell count but no evidence of obvious infection at this time. Coronavirus test is negative. We did give a second dose of Narcan which caused the patient to wake up and cough. She did bring up a lot of sputum with the BiPAP on. She is currently protecting her airway. We will hold off on intubation and trial BiPAP. Patient's daughter did come to bedside and is aware of the situation. Patient presented to hospitalist and will bring in for further evaluation and management. Her respiratory failure is likely multi factorial given her COPD, noncompliance with her CPAP and LOGAN, opioid use. She was given Solu-Medrol by EMS and we did give a dose of azithromycin and breathing treatment here in the ED. - Critical Care Time Critical care time (excluding procedures): 30-74 minutes, Discussing w/Patient &/or Family/Rental Clerk Tool And Equipment, Arranging Admission or Transfer, Performing Direct Patient Care at Bedside ED Disposition - Plan for ED Patient: Disposition: Acute Care [facility] Diagnosis: Acute on chronic respiratory failure with hypoxia and hypercapnia, Acute kidney injury, Acute encephalopathy, Opioid overdose
[2020-08-19 21:43] LABS: Absolute Lymphocyte Count 1.47 X10^3/uL (0.83-4.51); Absolute Neutrophil Count 11.8 X10^3/uL (2.0-7.7); Basophil# 0.07 X10^3/uL; Basophil% 0.5 % (0-1); Eosinophil# 0.05 X10^3/uL; Eosinophils% 0.4 % (0-5); Hemoglobin 11.7 g/dL (12.0-15.0); Lymphocyte # 1.47 X10^3/ul (4.0); Lymphocyte % 10.4 % (19-41); Mean Corpuscular Volume 93.3 fL (81-99); Mean Platelet Vol. 10.4 fl (6.2-12.0); Monocyte# 0.69 X10^3/uL; Monocyte% 4.9 % (0-10); NRBC Flagged by Analyzer 0 % (0-5); Neutrophil # 11.83 X10^3/uL (2.7-7.7); Neutrophil % 83.2 % (47-70); Platelet Count 259 K/mm3 (150-450); RBC Distribution Width CV 16.7 % (11.6-14.6); RBC Distribution Width SD 56.1 fl (35.1-43.9); Red Blood Count 4.18 M/mm3 (4.2-5.4); White Blood Count 14.2 K/mm3 (4.4-11.0)
[2020-08-19 21:52] LABS: Internal QC Validated? YES +Cl - CLEAR BKGD; Pregnancy, Serum, hCG Quali. NEGATIVE Negative
--- NOTE | 2020-08-19 22:00 | RAD_ITS ---
HISTORY: ALTERED MENTAL STATUS, WHEEZING, FEVER, DYSPNEAHX OF COPD EXAM: XR Chest 1 View: COMPARISON: February 16, 2020 FINDINGS: # of images incl. paperwork: 1 Pulmonary venous congestion. Peribronchial cuffing. Heart is not enlarged. No acute osseous pathology perceived. Pulmonary vascularity is indistinct. No effusions. RAD/Chest 1 View (Portable) IMPRESSION: Pulmonary edema. at 2228 Reported and signed by: Caio Bruno MD Electronically Signed: Caio Bruno MD at 22:27 EDT Tel , Service support ,
[2020-08-19 22:01] LABS: ALB/GLOB Ratio 0.6 RATIO (0.9-2.4); AST(SGOT) 10 U/L (15-37); Alanine Aminotransfer ALT/SGPT 13 U/L (13-56); Albumin, Serum 2.8 g/dL (3.2-5.0); Alkaline Phosphatase 96 U/L (45-117); Anion Gap 7 (5-15); BUN 49 mg/dL (7-18); BUN/Creat Ratio 23.1 RATIO (10-20); Calcium,Total 8.6 mg/dL (8.5-10.1); Chloride 97 mmol/L (98-107); Creatinine, Serum 2.12 mg/dL (0.55-1.02); EST Glomerular Filtration Rate 27 mL/min (>60); Est Glom Filt Rate - Afr Amer 33 mL/min (>60); Estimated Creatinine Clearance 30.79 ml/min; Globulin 4.5 g/dL (2.2-4.2); Glucose 338 mg/dL (74-106); Protein, Total 7.3 g/dL (6.4-8.2); Sodium Level 132 mmol/L (136-145)
[2020-08-19] MEDS: Ipratropium/Albuterol Sulfate 3 ML AMPUL.NEB INHALATION (22:20)
[2020-08-19 22:47] LABS: Amphetamine Urine VISTA NEGATIVE (<1000 ng/mL); Barbiturate Urine VISTA NEGATIVE (< 200 ng/mL); Benzodiazepine Urine VISTA NEGATIVE (< 200 ng/mL); Cocaine Urine VISTA NEGATIVE (< 300 ng/mL); Ecstacy Urine VISTA NEGATIVE (< 500 ng/mL); Methadone Urine VISTA NEGATIVE (< 300 ng/mL); PCP Urine VISTA NEGATIVE (< 25 ng/mL); THC Urine VISTA NEGATIVE (< 50 ng/mL); Vista UDS pH Range 4
[2020-08-19 22:52] LABS: Mucous, Urine 0 SEEN /hpf (<or=2+)
[2020-08-19 22:58] LABS: Color, Urine Yellow (Yellow); Glucose, Dipstick 50 mg/dl (Normal); Ketone-Dipstick 5 mg/dl (Negative); Leukocyte Esterase-Dipstick 25 /ul (Negative); Nitrite-Dipstick Negative (Negative); Occult Blood-Urine 10 /ul (Negative); Protein-Dipstick 30 mg/dl (Negative); Urine Bilirubin Dipstick 1 mg/dL (Negative); Urine Clarity Sl. Cloudy (Clear); Urine Urobilinogen 1 mg/dl (Normal)
[2020-08-19 23:05] LABS: Probe Check PASS; Specimen Processing Control PASS
[2020-08-19 23:09] LABS: Hyaline Cast 5-10 SEEN /lpf (0-5); White Blood Cells 5-10 SEEN /hpf (0-5)
[2020-08-19 23:10] LABS: Bacteria 1+ /hpf (None Seen); Red Blood Cells-Urine 0-5 SEEN /hpf (0-5); Squamous Epithelial Cells - UA 5-10 SEEN /hpf (5-10); Transitional Epithelial - Ur 0-5 SEEN /hpf (0-5)
[2020-08-19 23:10] LABS: Base Excess 0 mmol/L (-2 to +2); Bicarbonate 28.3 mmol/L (22-26); Blood Gas Specimen Type ART; O2 Delivery Device Cannula; PO2 80 mmHG (75-100); SITE R Brach; SO2 91 % (95-99); Total Carbon Dioxide 31 mmol/L; pH 7.17 (7.35-7.45)
--- NOTE | 2020-08-19 23:16 | CPS ---
critical abg values called to Dr Teran 2300 ph 7.168 and pco2 78.0 abg was re-run
--- NOTE | 2020-08-19 23:19 | CT_ITS ---
HISTORY: ALTERED MENTAL STATUS,COUGH,REPIRATORY FAILURE,PT WAS GIVEN NARCAN IN ER,ELEVATED BLOOD SUGARHX:HTN,COPD,DIABETES,HLD,KS,SMOKER TECHNIQUE: Helically acquired images were obtained of the chest. A radiation dose optimization technique was used for this scan. IV Contrast dosage and agent: None. COMPARISON: Of the patient's 51 previous radiological exams at this institution, the most recent study is a chest x-ray from 3 hours earlier. Before that a CT pulmonary angiogram was performed on January 04, 2019. A CT of the chest was also performed on December 15, 2018. FINDINGS: # of images incl. paperwork: 923 LUNGS AND LARGE AIRWAYS: Pulmonary edema. Some interstitial edema. Pulmonary venous congestion. Atelectasis. PLEURA: Minimal pleural thickening. This is slightly greater in the left posteriorly. No pleural effusions BONES: Multilevel degenerative disc disease is mild. Vertebral body height is fairly well-preserved. No acute rib lesions are perceived HEART AND PERICARDIUM: Heart is enlarged. VESSELS: Thoracic aorta is not dilated. MEDIASTINUM AND VICENTA: There is no mediastinal or hilar adenopathy. Esophagus is unremarkable. There is no hiatal hernia. SOFT TISSUES: Included thyroid gland is unremarkable. There is no axillary, supraclavicular or lower cervical adenopathy. UPPER ABDOMEN: Hepatomegaly. CT/Chest without Contrast IMPRESSION: No acute thoracic disease. Hepatomegaly. Individualized dose optimization techniques were used for this CT. at 0200 Reported and signed by: Caio Bruno MD Electronically Signed: Caio Bruno MD at 1:59 EDT Tel , Service support ,
--- NOTE | 2020-08-19 23:31 | CT_ITS ---
History: ALTERED MENTAL STATUS,COUGH,REPIRATORY FAILURE,PT WAS GIVEN NARCAN IN ER,ELEVATED BLOOD SUGARHX:HTN,COPD,DIABETES,HLD,ID,SMOKER EXAMINATION: CT Head or Brain W/O Contrast Injection TECHNIQUE: Multiple axial images were obtained of the head without intravenous contrast. A radiation dose optimization technique was used for this scan. IV Contrast dosage and agent: None 290 COMPARISON: April 20, 2020. Sagittal and coronal 2-D reformats FINDINGS: BRAIN PARENCHYMA: No intra- or extra-axial hemorrhage. No evidence of acute infarct. No intracranial mass or mass effect. There is preservation of the alba/white matter interface. Posterior fossa structures are unremarkable. CSF SPACES: Appropriate for age. No hydrocephalus. Basal cisterns are patent. CALVARIUM, SKULL BASE, PARANASAL SINUSES AND MASTOID AIR CELLS: Clear. No discrete lytic or blastic abnormalities. ORBITS: Both globes, extraocular muscles, optic nerves and retrobulbar fat appear unremarkable. ASPECTS Score for Acute Strokes: 10 CT/Brain/Head without Contrast IMPRESSION: Negative Brain CT without contrast. Individualized dose optimization techniques were used for this CT. at 0157 Reported and signed by: Caio Bruno MD Electronically Signed: Caio Bruno MD at 1:56 EDT Tel , Service support ,
--- NOTE | 2020-08-19 23:31 | HP.PCM_ITS ---
Problem List (1) Chronic respiratory failure with hypoxia Status: Chronic (2) KERRY (acute kidney injury) Status: Acute (3) Acute encephalopathy Status: Acute (4) Type 2 diabetes mellitus Status: Chronic (5) Essential hypertension Status: Chronic (6) Restrictive lung disease secondary to obesity Status: Chronic (7) Hyperglycemia Status: Chronic (8) Respiratory failure with hypoxia Status: Chronic Qualifiers: Chronicity: chronic Qualified Code(s): J96.11 - Chronic respiratory failure with hypoxia (9) 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 Status: Chronic Comment: cmH20 (10) Anxiety Status: Chronic (11) Morbid obesity Status: Chronic (12) Hyperlipidemia Status: Chronic Qualifiers: Hyperlipidemia type: unspecified Qualified Code(s): E78.5 - Hyperlipidemia, unspecified (13) Hyperglycemia due to type 2 diabetes mellitus Status: Chronic Qualifiers: History of Present Illness Date of Admission: 08/19/20 Chief Complaint: Unresponsiveness The patient is a 45 year old F with a significant history of morbid obesity; tobacco abuse; and obstructive sleep apnea; respiratory failure on 6 L of nasal cannula who presents to emergency department with decreased response. Patient went to her daughter's house to pizza cook. Thereafter she went to lie down but she could not be awakened . Paramedics gave patient Narcan and reportedly she responded. However patient's daughter was doubtful on whether Narcan administered by paramedics made any difference in patient's responsiveness. At emergency department a CO2 was severely elevated. She was placed on avap While in patient's room at the ED, Narcan ordered by emergency department doctor was administered. Patient began to shake; and cough. Patient takes oxycodone for leg pain. Daughter also reported that per patient's at times she takes Suboxone. Her urine drug screen was positive for opiates. She is supposed to be on CPAP/BiPAP at home. However her CPAP/BiPAP mask does not fit her; and she is here to get a new mask. Past Medical History Past Medical History (Chronic Problems): Chronic Problems (Last Reviewed 08/20/20 @ 01:[address] Chris Gill MD) Chronic respiratory failure with hypoxia (Chronic) Type 2 diabetes mellitus (Chronic) Essential hypertension (Chronic) Restrictive lung disease secondary to obesity (Chronic) Hyperglycemia (Chronic) Respiratory failure with hypoxia (Chronic) 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 (Chronic) cmH20 Anxiety (Chronic) Morbid obesity (Chronic) Hyperlipidemia (Chronic) Hyperglycemia due to type 2 diabetes mellitus (Chronic) Medical History: Medical History (Last Reviewed 08/20/20 @ 03:[address] Chris Gill MD) Opiate overdose (Resolved) T40.601A Cellulitis of leg (Inactive) L03.119 Altered mental status (Inactive) R41.82 Chronic respiratory failure with hypoxia (Chronic) J96.11 KERRY (acute kidney injury) (Acute) N17.9 Acute encephalopathy (Acute) G93.40 Sepsis (Inactive) A41.9 Type 2 diabetes mellitus (Chronic) E11.9 Old myocardial infarction (Inactive) I25.2 Essential hypertension (Chronic) I10 Restrictive lung disease secondary to obesity (Chronic) J98.4, E66.9 Dyspnea on exertion (Inactive) R06.09 Chest pain (Inactive) R07.9 CAP (community acquired pneumonia) (Inactive) J18.9 Hyperglycemia (Chronic) R73.9 Respiratory failure with hypoxia (Chronic) J96.91 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 (Chronic) G47.33 cmH20 Anxiety (Chronic) F41.9 Morbid obesity (Chronic) E66.01 Hyperlipidemia (Chronic) E78.5 Hyperglycemia due to type 2 diabetes mellitus (Chronic) E11.65 Abscess L02.91 Abscess of vulva N76.4 diabetic abscess left vulval area (involving the genitocrural and pubic areas) Cellulitis L03.90 Hidradenitis L73.2 History of MRSA infection Z86.14 History of left heart catheterization (LHC) Onset Date: ~01/05/19 Z98.890 LEFT MAIN: Angiographically normal; LEFT ANTERIOR DECENDING ARTERY: Mild briding Mid LAD; CIRCUMFLEX ARTERY: Angiographically normal; RIGHT CORONARY ARTERY: Angiographically normal; per cath 01/05/19 NSTEMI (non-ST elevated myocardial infarction) I21.4 Necrotizing soft tissue infection M79.89 necrotizing diabetic abscess left inguinal area and vulval area (involving the genitocrural and mons pubis area) Non-healing open wound of left groin S31.104A Open wound of vulva with complication S31.40XA Pulmonary embolism I26.99 Soft tissue abscess of inguinal region L02.214 diabetic abscess left inguinal area Tobacco abuse Z72.0 Allergies cyclobenzaprine HCl [From Flexeril] Allergy (Verified 08/19/20 20:49) Hives venlafaxine [From Effexor] Adverse Reaction (Severe, Verified 08/19/20 20:49) unknown Home Medications: Ambulatory Orders Medication Instructions Recorded Buspirone HCl [Buspar] 5 mg PO BID PRN 09/29/13 Hydrochlorothiazide [Hctz] 25 mg PO DAILY 02/02/17 Multivit,Calc,Mins/Iron/Folic 1 ea PO DAILY 03/26/17 [Women's Daily Formula Caplet] Gabapentin [Neurontin] 900 mg PO TID 05/29/17 Dulaglutide [Trulicity] 0.5 ml SQ QWEEK MDD 0.5ml 06/08/18 Furosemide 40 mg PO BID 12/15/18 Omeprazole 40 mg PO DAILY 12/15/18 Insulin Glargine [Lantus SoloStar 70 units SUBCUT BID 01/04/19 Pen] Metformin HCl 1,000 mg PO DAILY 01/04/19 Oxygen, Home [Home Oxygen] 3 - 4 lpm NASAL DAILY 01/04/19 Insulin Aspart [Novolog Flexpen] 38 units SUBCUT TIDCM 02/15/20 lisinopril 20 mg tablet 20 mg PO DAILY tab 03/01/20 loratadine 10 mg tablet 10 mg PO DAILY PRN tab 03/01/20 albuterol sulfate 2.5 mg INHALATION Q2H PRN PRN #90 03/29/20 ml Apixaban [Eliquis] 5 mg PO BID 08/20/20 Aspirin E.C. [Ecotrin] 81 mg PO DAILY@0800 08/20/20 Atorvastatin Calcium 40 mg PO QHS 08/20/20 Compression Socks, Medium [Futuro 1 ea MC DAILY 08/20/20 Restoring] Diltiazem CD [Cardizem CD] 120 mg PO DAILY 08/20/20 Surgical History: Surgical History (Last Reviewed 08/20/20 @ 01:[address] Chris Gill MD) H/O arthroscopic knee surgery Z98.890 History of delivery Z98.891 History of cholecystectomy Z98.890, Z90.49 Surgical History: appendectomy, arthroscopy, knee, cholecystectomy, - - C- section. Drainage of right groin abscess. Recent I&D of left groin abscess. Psychiatric History: Anxiety IT APPLICATIONS ANALYST History: No pertinent IT APPLICATIONS ANALYST history Smoking Status: Current every day smoker - *Family History Maternal Family History: Family History (Last Reviewed 08/20/20 @ 01:[address] Chris Gill MD) Father CVA (cerebral vascular accident) Heart disease Diabetes Mother Thyroid disorder Review of Systems Unable to obtain accurate/complete ROS d/t: Lethargy. VTE Information - Inpt Only VTE Present on Admission: No VTE Mechan Device Prophylaxis: None VTE Pharm Prophylaxis ordered?: No Reason prophylaxis not ordered:: Treatment Not Indicated - On home Eliquis, held secondary n.p.o. status. Started on therapeutic Lovenox for history of PE. - Physical Exam Vitals/I&O's: Vital Signs Temp Pulse Resp BP Pulse Ox 98.6 F 88 21 H 102/82 H 94 08/19/20 22:29 08/19/20 22:29 08/19/20 22:29 08/19/20 22:29 08/19/20 22:29 Oxygen Flow Rate (L/min) 6 Oxygen Delivery Method Nasal Cannula Weight: 170.1 kg Body Mass Index (BMI) 62.4 Finger Stick Blood Glucose 189 General: Lethargic, - HEENT: Atraumatic, Normocephalic, - - Dilated pupil, sluggish to light. Neck: Supple, Trachea Midline Lungs: Rhonchi, Wheezes Cardiovascular: Regular rate, Regular Rhythm, Normal S1, Normal S2, No murmurs Abdomen: Bowel Sounds Present, Soft, Non Tender Extremities: No edema, Capillary Refill Less than 3 Seconds Skin: No rashes, No breakdown Musculoskeletal: No Muscle Wasting Neurological: - - Lethargic does not follow commands to fully evaluate cranial nerves.. Psych/Mental Status: - - Lethargic Laboratory Results 08/19/20 20:50: COVID-19 ([facility]) Negative 08/19/20 21:00: WBC 14.2 H, RBC 4.18 L, Hgb 11.7 L, Hct 39.0, MCV 93.3, MCH 28.0, MCHC 30.0 L, RDW Std Deviation 56.1 H, RDW Coeff of Darrion 16.7 H, Plt Count 259, MPV 10.4, Immature Gran % (Auto) 0.600, Neut % (Auto) 83.2 H, Lymph % (Auto) 10.4 L, Knox % (Auto) 4.9, Eos % (Auto) 0.4, Baso % (Auto) 0.5, Absolute Neuts (auto) 11.8 H, Absolute Lymphs (auto) 1.47, Nucleated RBC % 0 08/19/20 21:00: Sodium 132 L, Potassium 5.0, Chloride 97 L, Carbon Dioxide 28.0, Anion Gap 7, BUN 49 H, Creatinine 2.12 H, Estim Creat Clear Calc 30.79, Est GFR (MDRD) Af Amer 33 L, Est GFR (MDRD) Non-Af 27 L, BUN/Creatinine Ratio 23.1 H, Glucose 338 H, Calcium 8.6, Total Bilirubin 0.20, AST 10 L, ALT 13, Alkaline Phosphatase 96, Troponin I < 0.015, Total Protein 7.3, Albumin 2.8 L, Globulin 4.5 H, Albumin/Globulin Ratio 0.6 L 08/19/20 21:00: Lactic Acid 2.0 08/19/20 21:00: Serum , Qual NEGATIVE 08/19/20 21:00: B-Natriuretic Peptide Pending 08/19/20 22:19: Urine Opiates Screen POSITIVE H, Urine Methadone Screen NEGATIVE, Ur Barbiturates Screen NEGATIVE, Ur Phencyclidine Scrn NEGATIVE, Ur Amphetamines Screen NEGATIVE, U Methamphetamin-MDMA NEGATIVE, U Benzodiazepines Scrn NEGATIVE, Urine Cocaine Screen NEGATIVE, U Cannabinoids Screen NEGATIVE, Ur Drug Screen Comment 08/19/20 22:19: Urine Color Yellow, Urine Clarity Sl. Cloudy, Urine pH 5.0, Ur Specific [place] 1.020, Urine Protein 30 H, Urine Glucose (UA) 50 H, Urine Ketones 5 H, Urine Occult Blood 10 H, Urine Nitrite Negative, Urine Bilirubin 1 H, Urine Urobilinogen 1 H, Ur Leukocyte Esterase 25 H, Urine RBC 0-5 SEEN, Urine WBC 5-10 SEEN, Ur Squamous Epith Cells 5-10 SEEN, Ur Transition Epith Cell 0-5 SEEN, Urine Bacteria 1+, Hyaline Casts 5-10 SEEN, Urine Mucus 0 SEEN 08/19/20 22:59: Specimen Type ART, Sample Site R Brach, pH 7.17 L*, Bicarbonate Actual 28.3 H, Total CO2 31, Base Excess 0, O2 Saturation 91 L, ABG pCO2 78.0 H* , ABG pO2 80, O2 Delivery Device Cannula, Liter Flow 4.0 Current Medications Azithromycin 500 mg/ Dextrose 255 mls @ 250 mls/hr IV X1 ONE Stop: 08/20/20 00:21 Assessment/Plan All Active Problems (Last Reviewed 08/20/20 @ 01:[address] Chris Gill MD) Opiate overdose (Resolved) KERRY (acute kidney injury) (Acute) Acute encephalopathy (Acute) The patient is a 45 year old F with a significant history of morbid obesity; tobacco abuse; and obstructive sleep apnea; respiratory failure on 6 L of nasal cannula who presents emergency department with decreased response; elevated CO2 and found to shake and cough with Narcan. Acute on chronic hypercapnic respiratory failure secondary to narcotic overdose; pickwickian syndrome; restrictive lung disease Follow-up ABG after avap showed an improvement of PCO2 from 78-62.5. 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 Repeat ABG. Chest x-ray was interpreted as a pulmonary edema. This could be underpenetration so upon discussion with emergency department doctor CT chest was ordered. BNP is 38. We will keep patient n.p.o. for now. Albuterol PRN continue. Scheduled DuoNeb. Patient with leukocytosis. Azithromycin ordered at emergency department and continued. Admitting intensive care unit and consult chandelier maker. Acute encephalopathy Likely secondary to CO2 narcosis; narcotic use. Management as above. Diabetes mellitus with uncontrolled blood glucose Adjust home basal insulin in the setting of n.p.o. status. On home Trulicity. Accu-Chek every 4 hours with correction scale insulin. Hold metformin. KERRY Creatinine is 2.12. Baseline creatinine is less than 1. BUN is 49. There is the highest BUN on file so far. BUN over creatinine is 23.1. Likely prerenal. CT chest does not show pulmonary edema. BNP is unremarkable. Avoid nephrotoxins: Home Lasix; lisinopril and adequate thiazide held. Trend BMP. Hypertension Blood pressure is elevated Patient is n.p.o. because of encephalopathy. Hold Cardizem p.o. Lasix, hydrochlorthiazide and lisinopril held as above PRN labetalol ordered. Morbid Obesity: BMI: 62.4 Complicates care. Recommend lifestyle modification. Tobacco abuse: Counseled when appropriate. History of PE While n.p.o. hold Eliquis. Therapeutic dose of Lovenox ordered. Inpatient E&M: 23462 Init Hosp L3
[2020-08-20] VITALS (45 sets, daily range): BP systolic 84–157; BP diastolic 26–82; PULSE 83–115; RESP 13–22; TEMP 36.1–37.9; O2SAT 89–100; BMI 62.1
--- NOTE | 2020-08-20 00:49 | NURSING ---
Received report from ER. Pt will be taken to CT prior to arrival to floor. Nurse reports, as pt's daughter reports, pt takes Oxycodone, and when that runs out, pt takes Suboxone. Neither medication is prescribed to pt.
[2020-08-20 01:11] LABS: Base Excess -2 mmol/L (-2 to +2); Bicarbonate 25.8 mmol/L (22-26); Blood Gas Specimen Type ART; FI02 40; O2 Delivery Device BiPAP; PO2 97 mmHG (75-100); SITE L Brach; SO2 96 % (95-99); Total Carbon Dioxide 28 mmol/L; Vt 550; pCO2 62.5 mmHg (35-45); pH 7.23 (7.35-7.45)
[2020-08-20 01:37] LABS: Reflex Lactate? Y
[2020-08-20 02:29] LABS: Absolute Lymphocyte Count 0.69 X10^3/uL (0.83-4.51); Absolute Neutrophil Count 13.1 X10^3/uL (2.0-7.7); Basophil# 0.03 X10^3/uL; Basophil% 0.2 % (0-1); Eosinophil# 0.01 X10^3/uL; Eosinophils% 0.1 % (0-5); Hematocrit 38.9 % (37-47); Hemoglobin 11.6 g/dL (12.0-15.0); Lymphocyte # 0.69 X10^3/ul (4.0); Lymphocyte % 4.9 % (19-41); Mean Corp Hgb Conc 29.8 g/dL (32-36); Mean Corpuscular Hgb 28.3 pg (27.0-32.0); Mean Corpuscular Volume 94.9 fL (81-99); Mean Platelet Vol. 10.2 fl (6.2-12.0); Monocyte# 0.08 X10^3/uL; Monocyte% 0.6 % (0-10); NRBC Flagged by Analyzer 0 % (0-5); Neutrophil # 13.13 X10^3/uL (2.7-7.7); Neutrophil % 93.5 % (47-70); Platelet Count 246 K/mm3 (150-450); RBC Distribution Width CV 16.6 % (11.6-14.6)
[2020-08-20 02:58] LABS: Anion Gap 8 (5-15); BUN 53 mg/dL (7-18); BUN/Creat Ratio 23.9 RATIO (10-20); Calcium,Total 8.5 mg/dL (8.5-10.1); Chloride 97 mmol/L (98-107); Creatinine, Serum 2.22 mg/dL (0.55-1.02); EST Glomerular Filtration Rate 26 mL/min (>60); Est Glom Filt Rate - Afr Amer 31 mL/min (>60); Glucose 464 mg/dL (74-106); Potassium 5.7 mmol/L (3.5-5.1); Sodium Level 129 mmol/L (136-145)
[2020-08-20 03:06] LABS: Bedside Glucose 471 mg/dL (70-110)
[2020-08-20] MEDS: Insulin Lispro 100 UNIT/ML INSULN.PEN SC ×4 (03:09→08:07)
[2020-08-20] MEDS: Enoxaparin 100 MG/ML Syringe 170 MG SC ×3 (03:09→22:10)
[2020-08-20] MEDS: 0.9% Saline Lock 10 ML Syringe IV ×2 (03:14→22:10)
[2020-08-20] MEDS: 0.9% Normal Saline 1,000 ML 100 ML IV (03:21)
[2020-08-20 03:33] LABS: Lactic Acid 3.4 mmol/L (0.4-1.9)
[2020-08-20] MEDS: Ondansetron 4 MG/2 ML Vial IV (03:53)
[2020-08-20] MEDS: Ipratropium/Albuterol Sulfate 3 ML AMPUL.NEB INHALATION ×6 (03:58→23:35)
[2020-08-20 05:06] LABS: Base Excess -2 mmol/L (-2 to +2); Bicarbonate 26.4 mmol/L (22-26); Blood Gas Specimen Type ART; FI02 40; O2 Delivery Device BiPAP; PO2 83 mmHG (75-100); SITE R Brach; SO2 92 % (95-99); Total Carbon Dioxide 29 mmol/L; Vt 550; pH 7.19 (7.35-7.45)
--- NOTE | 2020-08-20 05:15 | CPS ---
Critical ABG results read to Dr. Gill at [id number]
[2020-08-20] MEDS: Etomidate 20 MG/10 ML Vial IV (05:50)
[2020-08-20] MEDS: Propofol 10MG/Ml 1,000 MG/100 ML Bottle 10.2 MG CONT INF (05:53)
--- NOTE | 2020-08-20 06:06 | PN_ITS ---
Progress Note Attempted intubation: an attempt was made to intubate patient with a GlideScope after 20 of etomidate given. Airway was not clear and patient was biting on GlideScope. Dr. Dumont, leather currier who was at bedside successful intubated patient. STROKE Vital Signs/Narrative: Vital Signs Temp Pulse Resp BP BP Pulse Ox 08/20/20 05:16 93 20 H 94 08/20/20 05:00 98.9 F 90 17 110/34 L 96 08/20/20 04:14 89 08/20/20 04:00 98.7 F 94 17 103/37 L 93 08/20/20 03:00 98.7 F 90 17 92/26 L 96 08/20/20 02:30 91 17 113/30 L 95 08/20/20 02:25 93 22 H 95 08/20/20 02:19 89 18 99/31 L 97 08/20/20 02:17 93 18
--- NOTE | 2020-08-20 06:10 | RAD_ITS ---
We are attempting to reach an attending provider to discuss findings. An addendum with communication details will be sent when the communication is complete. STUDY: X-RAY CHEST REASON FOR EXAM: Female, 45 years old. ET TUBE PLACEMENT. TECHNIQUE: Single AP portable view of the chest. COMPARISON: 08/19/2020. FINDINGS: NG tube is seen its tip is at the GE junction and can be advanced 10 cm. Ill-defined subpleural groundglass opacities are seen more prominent in the lung bases , may represent atypical pneumonia or viral pneumonia. There is no demonstrated pleural abnormality. Normal size heart. Normal mediastinum and evi. Normal visualized pulmonary arteries. Normal visualized aortic arch and descending thoracic aorta. Normal visualized thoracic spine. Normal visualized ribs, clavicles, and shoulders. There is no demonstrated abnormality of the visualized soft tissue structures of the upper abdomen. RAD/Chest 1 View (Portable) IMPRESSION: Ill-defined subpleural groundglass opacities are seen more prominent in the lung bases , may represent atypical pneumonia or viral pneumonia. NG tube is seen its tip is at the GE junction and can be advanced 10 cm. Electronically Signed: Patti Jensen, at 8:05 EDT Tel , Service support ,
--- NOTE | 2020-08-20 06:15 | NURSING ---
The results of the ordered ABG showed no improvement in pt respiratory status. Decision to intubate was made by Dr. Gill. Dr. Dumont was also at bedside in supportive role. Pt intubated after administration of ordered Etomidate with 7.5 ETT, 23@lip. CO2 detector showed good color change, bilateral breath sounds equal. OGT inserted with auscultation of air bolus over LUQ of abdomen and withdraw of yellow/green fluid present. Xray ordered for verification of placement. Pt tolerated procedure by maintaining pulse ox >91% throughout.
--- NOTE | 2020-08-20 06:47 | NURSING ---
Notified daughter of intubation. Explained process and sedation protocol. Assured her the nurse would call to update her on pt's condition.
--- NOTE | 2020-08-20 07:00 | CPS ---
Critical value ABG handed to Dr. Dumont @07:00.
[2020-08-20] MEDS: Insulin Lispro 100 UNIT/ML INSULN.PEN 14 UNIT SC ×2 (07:03→08:17)
--- NOTE | 2020-08-20 07:14 | PCM.PN.HOSP ---
Reason for Visit: Follow-up on unresponsiveness/narcotic overdose Subjective: Patient was seen and examined. She was intubated this morning. She remains on mechanical ventilator. PEEP 5, FiO2 50%. No other acute issues. Vitals/I&O's: Vital Signs Temp Pulse Resp BP Pulse Ox 98.9 F 115 H 17 137/80 H 89 08/20/20 06:00 08/20/20 06:00 08/20/20 06:00 08/20/20 06:00 08/20/20 06:00 Oxygen Flow Rate (L/min) 6 Oxygen Delivery Method Ambu-Bag Weight: 169.3 kg Body Mass Index (BMI) 62.1 Finger Stick Blood Glucose 189 Intake and Output for Last 24 Hours 08/18/20 08/19/20 08/20/20 23:59 23:59 23:59 Intake Total 844.25 / 844.25 Output Total 500 / 500 Balance 344.25 / 344.25 General: - - Super morbidly obese, sedated, intubated HEENT: Atraumatic, PERRLA, EOMI, Normocephalic, - - Thick neck Oral: Moist Mucosa Neck: Supple Lungs: Clear to auscultation, Normal air movement Cardiovascular: Regular rate, Regular Rhythm, Normal S1, Normal S2, No murmurs Abdomen: Bowel Sounds Present, Soft, Non Tender, Non-Distended, No Hepato-splenomegaly Extremities: Edema - Trace bilateral pedal edema Skin: No rashes Musculoskeletal: No Tenderness to Palpation of Joints or Extremities Lymphatic: No Cervical, Supraclavicular, or Inguinal Adenopathy Neurological: - - Sedated, on mechanical ventilator Psych/Mental Status: Normal Affect, Appropriate Microbiology Past 72 Hours 08/19/20 22:19 Urine, Clean Catch Urine Culture - Preliminary Culture exhibits no growth. Laboratory Results 08/19/20 20:50: COVID-19 ([facility]) Negative 08/19/20 21:00: WBC 14.2 H, RBC 4.18 L, Hgb 11.7 L, Hct 39.0, MCV 93.3, MCH 28.0, MCHC 30.0 L, RDW Std Deviation 56.1 H, RDW Coeff of Darrion 16.7 H, Plt Count 259, MPV 10.4, Immature Gran % (Auto) 0.600, Neut % (Auto) 83.2 H, Lymph % (Auto) 10.4 L, Pratt % (Auto) 4.9, Eos % (Auto) 0.4, Baso % (Auto) 0.5, Absolute Neuts (auto) 11.8 H, Absolute Lymphs (auto) 1.47, Nucleated RBC % 0 08/19/20 21:00: Sodium 132 L, Potassium 5.0, Chloride 97 L, Carbon Dioxide 28.0, Anion Gap 7, BUN 49 H, Creatinine 2.12 H, Estim Creat Clear Calc 30.79, Est GFR (MDRD) Af Amer 33 L, Est GFR (MDRD) Non-Af 27 L, BUN/Creatinine Ratio 23.1 H, Glucose 338 H, Calcium 8.6, Total Bilirubin 0.20, AST 10 L, ALT 13, Alkaline Phosphatase 96, Troponin I < 0.015, Total Protein 7.3, Albumin 2.8 L, Globulin 4.5 H, Albumin/Globulin Ratio 0.6 L 08/19/20 21:00: Lactic Acid 2.0 08/19/20 21:00: Serum , Qual NEGATIVE 08/19/20 21:00: B-Natriuretic Peptide 38.0 08/19/20 22:19: Urine Opiates Screen POSITIVE H, Urine Methadone Screen NEGATIVE, Ur Barbiturates Screen NEGATIVE, Ur Phencyclidine Scrn NEGATIVE, Ur Amphetamines Screen NEGATIVE, U Methamphetamin-MDMA NEGATIVE, U Benzodiazepines Scrn NEGATIVE, Urine Cocaine Screen NEGATIVE, U Cannabinoids Screen NEGATIVE, Ur Drug Screen Comment 08/19/20 22:19: Urine Color Yellow, Urine Clarity Sl. Cloudy, Urine pH 5.0, Ur Specific [place] 1.020, Urine Protein 30 H, Urine Glucose (UA) 50 H, Urine Ketones 5 H, Urine Occult Blood 10 H, Urine Nitrite Negative, Urine Bilirubin 1 H, Urine Urobilinogen 1 H, Ur Leukocyte Esterase 25 H, Urine RBC 0-5 SEEN, Urine WBC 5-10 SEEN, Ur Squamous Epith Cells 5-10 SEEN, Ur Transition Epith Cell 0-5 SEEN, Urine Bacteria 1+, Hyaline Casts 5-10 SEEN, Urine Mucus 0 SEEN 08/19/20 22:59: Specimen Type ART, Sample Site R Brach, pH 7.17 L*, Bicarbonate Actual 28.3 H, Total CO2 31, Base Excess 0, O2 Saturation 91 L, ABG pCO2 78.0 H*, ABG pO2 80, O2 Delivery Device Cannula, Liter Flow 4.0 08/20/20 01:02: Specimen Type ART, Sample Site L Brach, pH 7.23 L, Bicarbonate Actual 25.8, Total CO2 28, Base Excess -2, O2 Saturation 96, O2 % 40, ABG pCO2 62.5 H, ABG pO2 97, Respiration Rate 16.0000, O2 Delivery Device BiPAP, Tidal Volume 550 08/20/20 02:20: WBC 14.0 H, RBC 4.10 L, Hgb 11.6 L, Hct 38.9, MCV 94.9, MCH 28.3, MCHC 29.8 L, RDW Std Deviation 58.0 H, RDW Coeff of Darrion 16.6 H, Plt Count 246, MPV 10.2, Immature Gran % (Auto) 0.700, Neut % (Auto) 93.5 H, Lymph % (Auto) 4.9 L, Pratt % (Auto) 0.6, Eos % (Auto) 0.1, Baso % (Auto) 0.2, Absolute Neuts (auto) 13.1 H, Absolute Lymphs (auto) 0.69 L, Nucleated RBC % 0 08/20/20 02:20: Sodium 129 L, Potassium 5.7 H, Chloride 97 L, Carbon Dioxide 24.0, Anion Gap 8, BUN 53 H, Creatinine 2.22 H, Estim Creat Clear Calc 29.40, Est GFR (MDRD) Af Amer 31 L, Est GFR (MDRD) Non-Af 26 L, BUN/Creatinine Ratio 23.9 H, Glucose 464 H*, Calcium 8.5 08/20/20 02:25: Lactic Acid 3.4 H* 08/20/20 02:57: POC Glucose 471 H* 08/20/20 04:56: Specimen Type ART, Sample Site R Brach, pH 7.19 L*, Bicarbonate Actual 26.4 H, Total CO2 29, Base Excess -2, O2 Saturation 92 L, O2 % 40, ABG pCO2 70.0 H*, ABG pO2 83, Respiration Rate 16.0000, O2 Delivery Device BiPAP, Tidal Volume 550 Current Medications Acetaminophen (Tylenol) 650 mg PO Q6H PRN PRN PRN Reason: Pain Score 1-10/Temp > 100.7 F Albuterol Sulfate (Ventolin Aerosols) 2.5 mg INHALATION Q2H PRN PRN PRN Reason: SOB/Wheezing Albuterol/Ipratropium (Duoneb) 3 ml INHALATION Q4H.RT [facility] Last Admin: 08/20/20 06:54 Dose: 3 ml Documented by: Chlorhexidine Gluconate () 15 ml PO BID KIAN Dextrose (D50w Syringe) 0 gm IV X1 PRN; Protocol PRN Reason: Hypoglycemia Enoxaparin Sodium (Lovenox) 170 mg SC Q12 [facility] Last Admin: 08/20/20 03:09 Dose: 170 mg Documented by: Etomidate (Amidate) 20 mg IV X1 ONE Stop: 08/20/20 05:51 Glucagon () 1 mg IM .X1 PRN PRN Reason: Hypoglycemia Azithromycin 500 mg/ Dextrose 255 mls @ 250 mls/hr IV Q24@2200 KIAN Stop: 08/22/20 23:02 Sodium Chloride () 250 mls @ 15 mls/hr IV .[id number] PRN PRN Reason: Additional IVPB Infusion Sodium Chloride () 1,000 mls @ 100 mls/hr IV .Q10H [facility] Last Admin: 08/20/20 03:21 Dose: 100 mls/hr Documented by: Naloxone HCl 4 mg/ Dextrose 504 mls @ 63 mls/hr IV .Q8H [facility]; Protocol Last Titration: 08/20/20 05:45 Dose: 0 mg/hr, 0 mls/hr Documented by: Propofol (Diprivan) 1,000 mg in 100 mls @ 10.158 mls/hr CONT INF .Q9H51M [facility]; Protocol Last Admin: 08/20/20 05:53 Dose: 10 mcg/kg/min, 10.2 mls/hr Documented by: Fentanyl Citrate 1,000 mcg/ (Sodium Chloride) 100 mls @ 2.5 mls/hr CONT INF .Q40H [facility]; Protocol Last Admin: 08/20/20 05:54 Dose: 25 mcg/hr, 2.5 mls/hr Documented by: Insulin Glargine (Lantus (Bk)) 50 units SC BID [facility] Last Admin: 08/20/20 03:14 Dose: 50 units Documented by: Insulin Human Lispro (Humalog Kwikpen ([facility])) 0 unit SC Q4 KIAN; Protocol Last Admin: 08/20/20 07:00 Dose: 11 units Documented by: Labetalol HCl (Trandate) 10 mg IV Q6H PRN PRN PRN Reason: SBP > 160 OR DBP > 120 Methylprednisolone (Solu-Medrol) 40 mg IV Q8 KIAN Last Admin: 08/20/20 06:59 Dose: 40 mg Documented by: Naloxone HCl (Narcan) 0.02 mg IV Q1M PRN PRN Reason: RR <10 and pt unresponsive Ondansetron HCl (Zofran) 4 mg IV Q8H PRN PRN PRN Reason: NAUSEA/VOMITING Last Admin: 08/20/20 03:53 Dose: 4 mg Documented by: Sodium Chloride () 10 - 40 ml IV UD PRN PRN Reason: SALINE FLUSH Last Admin: 08/20/20 03:14 Dose: 10 ml Documented by: STROKE Vital Signs/Narrative: Vital Signs Temp Pulse Resp BP Pulse Ox 08/20/20 06:00 98.9 F 115 H 17 137/80 H 89 08/20/20 05:16 93 20 H 94 08/20/20 05:00 98.9 F 90 17 110/34 L 96 08/20/20 04:14 89 08/20/20 04:00 98.7 F 94 17 103/37 L 93 Medical Necessity - Tobacco Use Smoking Status: Current every day smoker Assessment/Plan All Active Problems (Last Reviewed 08/20/20 @ 03:[address] Chris Gill MD) Opiate overdose (Resolved) Cellulitis of leg (Acute) KERRY (acute kidney injury) (Acute) Acute encephalopathy (Acute) Sepsis (Acute) CAP (community acquired pneumonia) (Acute) Respiratory failure with hypoxia (Acute) 45y/o female with multiple co-morbidities including super morbid obesity, LOGAN who admitted with unresponsiveness and worsening respiratory. 1. 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 Acute encephalopathy related to narcotic overdose, patient has no opioids on her med list Per reported history, patient takes oxycodone/Suboxone for chronic back pain but that is not on her med list Her urine tox was positive for opiates. Clinically also in the ED, patient responded to 2 mg IV Narcan Currently on IV fentanyl post intubation Will hold gabapentin on home medlist 3. Possible fluid overload versus pneumonia vs acute COPD exacerbation Chest x-ray showed ill-defined subpleural groundglass opacities seen in the lung bases CT scan of the chest consistent with pulmonary venous congestion/hepatomegaly Continue with empiric antibiotics started?ceftriaxone and azithromycin Sputum cultures are pending, would also ask for urine for Legionella and Streptococcus We will continue with Lasix IV 40 mg twice daily Continue on IV steroids 4. KERRY, prerenal likely secondary to #1 and 2 Will hold off on IV fluids, on IV Lasix for volume overload status Repeat blood work in a.m. 5. Type 2 DM, uncontrolled, started on insulin drip for hyper glycemia Will continue to monitor per [facility] protocol Check HbA1c, hold home lantus and metformin 6. Hypertension, controlled for now Lisinopril, Hydrochlorothiazide on account of KERRY Continue to monitor 7. H/o PE, off Lovenox, on therapeutic Lovenox 8. Morbid Obesity, BMI 62.1, lifestyle modification recommended 9. DVT PPx- on therapeutic Lovenox Inpatient E&M: [id number] [facility] L3
[2020-08-20 07:26] LABS: Base Excess -2 mmol/L (-2 to +2); Bicarbonate 26.1 mmol/L (22-26); Blood Gas Specimen Type ART; FI02 50; Mode AC; O2 Delivery Device Adult Vent; PO2 62 mmHG (75-100); SITE R Brach; SO2 85 % (95-99); Total Carbon Dioxide 28 mmol/L; Vt 450
[2020-08-20 07:31] LABS: Bedside Glucose > 500 mg/dL (70-110)
[2020-08-20] MEDS: Propofol 10MG/Ml 1,000 MG/100 ML Bottle 35.6 MG CONT INF (08:00)
--- NOTE | 2020-08-20 08:03 | CON.PCM_ITS ---
Problem List (1) Cellulitis of leg Status: Acute Qualifiers: Laterality: left Qualified Code(s): L03.116 - Cellulitis of left lower limb (2) Altered mental status Status: Inactive Qualifiers: Altered mental status type: coma Coma depth: Miguel coma 9-12 Coma timing: at hospital admission Qualified Code(s): R40.2423 - Rhodes coma scale score 9-12, at hospital admission (3) Chronic respiratory failure with hypoxia Status: Chronic (4) KERRY (acute kidney injury) Status: Acute (5) Acute encephalopathy Status: Acute (6) Sepsis Status: Acute Qualifiers: Sepsis type: sepsis due to unspecified organism Sepsis acute organ dysfunction status: with acute organ dysfunction Severe sepsis acute organ dysfunction type: acute renal failure Acute renal failure type: with acute tubular necrosis Severe sepsis shock status: without septic shock Qualified Code(s): A41.9 - Sepsis, unspecified organism; R65.20 - Severe sepsis without septic shock; N17.0 - Acute kidney failure with tubular necrosis (7) Type 2 diabetes mellitus Status: Chronic Qualifiers: Diabetes mellitus correction insulin use: with lead web application developer use Diabetes mellitus complication status: with hyperosmolarity Diabetes mellitus complication detail: with coma Qualified Code(s): E11.01 - Type 2 diabetes mellitus with hyperosmolarity with coma; Z79.4 - retirement (current) use of insulin (8) Essential hypertension Status: Chronic (9) Restrictive lung disease secondary to obesity Status: Chronic (10) CAP (community acquired pneumonia) Status: Acute Qualifiers: Laterality: left Lung location: lower lobe of lung Qualified Code(s): J18.9 - Pneumonia, unspecified organism (11) Respiratory failure with hypoxia Status: Acute Qualifiers: Chronicity: chronic Qualified Code(s): J96.11 - Chronic respiratory failure with hypoxia (12) 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 Status: Chronic Comment: cmH20 (13) Anxiety Status: Chronic (14) Morbid obesity Status: Chronic (15) Hyperlipidemia Status: Chronic Qualifiers: Hyperlipidemia type: unspecified Qualified Code(s): E78.5 - Hyperlipidemia, unspecified (16) Hyperglycemia due to type 2 diabetes mellitus Status: Chronic Qualifiers: Reason for Consult Date of Consultation: 08/20/20 Reason for Consultation: Respiratory failure History of Present Illness: The patient is a 45 year old F, with past medical history listed below and well- known to me from the outpatient office, who presented with [facility] on 08/19/2020 secondary to decreased responsiveness. Patient is on 6 L nasal ca nnula at baseline and was saturating in her mid 70s. Patient was arousable for brief periods, but quickly fell back asleep. Patient was transported to the ER for further evaluation. Additional history is unclear at this time. In the ER, patient was noted to be saturating in the 70s. There was some concern for possible opiate overdose, so patient was given a Narcan with some subjective improvement. Patient reportedly had been complaining of coughing over the last couple of days bringing up green sputum. There was no known sick contacts. Patient had not reported any nausea, vomiting, diarrhea or urinary symptoms. Patient had had bilateral lower extremity swelling, but this is her baseline. Patient does have a history of PE in the past, but is currently on Eliquis therapy. Patient is a current smoker. COVID testing was negative. Patient was transferred to the intensive care unit for further evaluation. Patient reportedly was becoming more unresponsive. Patient was placed on a Narcan drip by the night hospitalist. On my arrival this morning at approximately 5:30 AM, patient was unresponsive. ABG showed significant CO2 retention with a mixed acidosis. The decision was made to intubate. Hospitalist attempted intubation with a glide scope after 20 mg of etomidate. Patient started to bite down and there was blood noted. I took over at that point and successfully intubated with a 7.5 endotracheal tube with the glide scope assistance. Visualized passing the cords with bilateral breath sounds, positive CO2 and no gastric noises. Patient did have to be bagged initially secondary to high peak pressures. Patient had to be placed on propofol and fentanyl. Significant wheezing noted. Patient is also had elevated blood sugars. Unable to obtain a review of systems secondary to acute condition. Past Medical History Past Medical History (Chronic Problems): Chronic Problems (Last Reviewed 08/20/20 @ 03:[address] Chris Gill MD) Chronic respiratory failure with hypoxia (Chronic) Type 2 diabetes mellitus (Chronic) Essential hypertension (Chronic) Restrictive lung disease secondary to obesity (Chronic) Hyperglycemia (Chronic) 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 (Chronic) 23/17 cmH20 Anxiety (Chronic) Morbid obesity (Chronic) Hyperlipidemia (Chronic) Hyperglycemia due to type 2 diabetes mellitus (Chronic) Medical History: Medical History (Last Reviewed 08/20/20 @ 03:[address] Chris Gill MD) Opiate overdose (Resolved) T40.601A Cellulitis of leg (Inactive) L03.119 Altered mental status (Inactive) R41.82 Chronic respiratory failure with hypoxia (Chronic) J96.11 KERRY (acute kidney injury) (Acute) N17.9 Acute encephalopathy (Acute) G93.40 Sepsis (Inactive) A41.9 Type 2 diabetes mellitus (Chronic) E11.9 Old myocardial infarction (Inactive) I25.2 Essential hypertension (Chronic) I10 Restrictive lung disease secondary to obesity (Chronic) J98.4, E66.9 Dyspnea on exertion (Inactive) R06.09 Chest pain (Inactive) R07.9 CAP (community acquired pneumonia) (Inactive) J18.9 Hyperglycemia (Chronic) R73.9 Respiratory failure with hypoxia (Chronic) J96.91 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 (Chronic) G47.33 23/17 cmH20 Anxiety (Chronic) F41.9 Morbid obesity (Chronic) E66.01 Hyperlipidemia (Chronic) E78.5 Hyperglycemia due to type 2 diabetes mellitus (Chronic) E11.65 Abscess L02.91 Abscess of vulva N76.4 diabetic abscess left vulval area (involving the genitocrural and pubic areas) Cellulitis L03.90 Hidradenitis L73.2 History of MRSA infection Z86.14 History of left heart catheterization (LHC) Onset Date: ~01/05/19 Z98.890 LEFT MAIN: Angiographically normal; LEFT ANTERIOR DECENDING ARTERY: Mild briding Mid LAD; CIRCUMFLEX ARTERY: Angiographically normal; RIGHT CORONARY ARTERY: Angiographically normal; per cath 01/05/19 NSTEMI (non-ST elevated myocardial infarction) I21.4 Necrotizing soft tissue infection M79.89 necrotizing diabetic abscess left inguinal area and vulval area (involving the genitocrural and mons pubis area) Non-healing open wound of left groin S31.104A Open wound of vulva with complication S31.40XA Pulmonary embolism I26.99 Soft tissue abscess of inguinal region L02.214 diabetic abscess left inguinal area Tobacco abuse Z72.0 Allergies cyclobenzaprine HCl [From Flexeril] Allergy (Verified 08/19/20 20:49) Hives venlafaxine [From Effexor] Adverse Reaction (Severe, Verified 08/19/20 20:49) unknown Home Medications: Ambulatory Orders Medication Instructions Recorded Buspirone HCl [Buspar] 5 mg PO BID PRN 09/29/13 Hydrochlorothiazide [Hctz] 25 mg PO DAILY 02/02/17 Multivit,Calc,Mins/Iron/Folic 1 ea PO DAILY 03/26/17 [Women's Daily Formula Caplet] Gabapentin [Neurontin] 900 mg PO TID 05/29/17 Dulaglutide [Trulicity] 0.5 ml SQ QWEEK MDD 0.5ml 06/08/18 Furosemide 40 mg PO BID 12/15/18 Omeprazole 40 mg PO DAILY 12/15/18 Insulin Glargine [Lantus SoloStar 70 units SUBCUT BID 01/04/19 Pen] Metformin HCl 1,000 mg PO DAILY 01/04/19 Oxygen, Home [Home Oxygen] 3 - 4 lpm NASAL DAILY 01/04/19 Insulin Aspart [Novolog Flexpen] 38 units SUBCUT TIDCM 02/15/20 lisinopril 20 mg tablet 20 mg PO DAILY tab 03/01/20 loratadine 10 mg tablet 10 mg PO DAILY PRN tab 03/01/20 albuterol sulfate 2.5 mg INHALATION Q2H PRN PRN #90 03/29/20 ml Apixaban [Eliquis] 5 mg PO BID 08/20/20 Aspirin E.C. [Ecotrin] 81 mg PO DAILY@0800 08/20/20 Atorvastatin Calcium 40 mg PO QHS 08/20/20 Compression Socks, Medium [Futuro 1 ea MC DAILY 08/20/20 Restoring] Diltiazem CD [Cardizem CD] 120 mg PO DAILY 08/20/20 Surgical History: Surgical History (Last Reviewed 08/20/20 @ 01:[address] Chris Gill MD) H/O arthroscopic knee surgery Z98.890 History of delivery Z98.891 History of cholecystectomy Z98.890, Z90.49 Surgical History: appendectomy, arthroscopy, knee, cholecystectomy, - - C- section. Drainage of right groin abscess. Recent I&D of left groin abscess. 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 Chris Gill MD) Father CVA (cerebral vascular accident) Heart disease Diabetes Mother Thyroid disorder History Items: No pertinent history Review of Systems Unable to obtain accurate/complete ROS d/t: Obtunded and intubated Objective: All imaging was personally reviewed. CT chest showed hepatomegaly with no acute infiltrates per the radiologist. However, there does appear to be a left lower lobe infiltrate on my review. Patient also has air bronchograms noted on chest x-ray post intubation. Clinical suspicion for an element of aspiration at some point secondary to decreased mental status. Patient's last pulmonary function test showed a moderate restrictive ventilatory defect with small airways disease (FVC 65%, FEV1 65%, TLC 67%, DLCO 45%). Nancy reyna's last echocardiogram was completed in January of this year showing an EF of 55% with inability to visualize for diastolic dysfunction or pulmonary hypertension. - Physical Exam Vitals/I&O's: Vital Signs Temp Pulse Resp BP Pulse Ox 37.2 C 115 H 17 137/80 H 89 08/20/20 06:00 08/20/20 06:00 08/20/20 06:00 08/20/20 06:00 08/20/20 06:00 Oxygen Flow Rate (L/min) 6 Oxygen Delivery Method Ambu-Bag Weight: 169.3 kg Body Mass Index (BMI) 62.1 Finger Stick Blood Glucose 189 Intake and Output for Last 24 Hours 08/18/20 08/19/20 08/20/20 23:59 23:59 23:59 Intake Total 871.66 / 871.66 Output Total 500 / 500 Balance 371.66 / 371.66 General: Lethargic, Non-Cooperative, - - Morbidly obese. RASS -3 on my evaluation HEENT: PERRLA, EOMI, Normocephalic, - - Significant redundant tissue of the neck Oral: Dry Mucosa, - - Chipped right incisor upper. Malum potty for Neck: Supple, No Nodes, Trachea Midline, - - Unable to assess JVD secondary to body habitus Lungs: No rhonchi, No rales, Diminished, Wheezes - Left greater than right Cardiovascular: Normal S1, Normal S2, No murmurs, No rub noted, No Gallop, Tac hycardic, - - Distant heart sounds Abdomen: Bowel Sounds Present, Soft, Non Tender, Non-Distended, Obese Extremities: No clubbing, No cyanosis, Edema - Bilateral lower extremities Skin: - - Left lower extremity warm to the touch and pale erythema Musculoskeletal: No Tenderness to Palpation of Joints or Extremities Lymphatic: No Cervical, Supraclavicular, or Inguinal Adenopathy Neurological: - - Nonfocal neurologic exam. Gag reflex present. Responds to painful stimulus, but no spontaneous movement noted. Psych/Mental Status: Flat Affect Microbiology Past 72 Hours 08/19/20 22:19 Urine, Clean Catch Urine Culture - Preliminary Culture exhibits no growth. Laboratory Results 08/19/20 20:50: COVID-19 ([facility]) Negative 08/19/20 21:00: WBC 14.2 H, RBC 4.18 L, Hgb 11.7 L, Hct 39.0, MCV 93.3, MCH 28.0, MCHC 30.0 L, RDW Std Deviation 56.1 H, RDW Coeff of Darrion 16.7 H, Plt Count 259, MPV 10.4, Immature Gran % (Auto) 0.600, Neut % (Auto) 83.2 H, Lymph % (Auto) 10.4 L, [place] % (Auto) 4.9, Eos % (Auto) 0.4, Baso % (Auto) 0.5, Absolute Neuts (auto) 11.8 H, Absolute Lymphs (auto) 1.47, Nucleated RBC % 0 08/19/20 21:00: Sodium 132 L, Potassium 5.0, Chloride 97 L, Carbon Dioxide 28.0, Anion Gap 7, BUN 49 H, Creatinine 2.12 H, Estim Creat Clear Calc 30.79, Est GFR (MDRD) Af Amer 33 L, Est GFR (MDRD) Non-Af 27 L, BUN/Creatinine Ratio 23.1 H, Glucose 338 H, Calcium 8.6, Total Bilirubin 0.20, AST 10 L, ALT 13, Alkaline Phosphatase 96, Troponin I < 0.015, Total Protein 7.3, Albumin 2.8 L, Globulin 4.5 H, Albumin/Globulin Ratio 0.6 L 08/19/20 21:00: Lactic Acid 2.0 08/19/20 21:00: Serum , Qual NEGATIVE 08/19/20 21:00: B-Natriuretic Peptide 38.0 08/19/20 22:19: Urine Opiates Screen POSITIVE H, Urine Methadone Screen NEGATIVE, Ur Barbiturates Screen NEGATIVE, Ur Phencyclidine Scrn NEGATIVE, Ur Amphetamines Screen NEGATIVE, U Methamphetamin-MDMA NEGATIVE, U Benzodiazepines Scrn NEGATIVE, Urine Cocaine Screen NEGATIVE, U Cannabinoids Screen NEGATIVE, Ur Drug Screen Comment 08/19/20 22:19: Urine Color Yellow, Urine Clarity Sl. Cloudy, Urine pH 5.0, Ur Specific Blair 1.020, Urine Protein 30 H, Urine Glucose (UA) 50 H, Urine Ketones 5 H, Urine Occult Blood 10 H, Urine Nitrite Negative, Urine Bilirubin 1 H, Urine Urobilinogen 1 H, Ur Leukocyte Esterase 25 H, Urine RBC 0-5 SEEN, Urine WBC 5-10 SEEN, Ur Squamous Epith Cells 5-10 SEEN, Ur Transition Epith Cell 0-5 SEEN, Urine Bacteria 1+, Hyaline Casts 5-10 SEEN, Urine Mucus 0 SEEN 08/19/20 22:59: Specimen Type ART, Sample Site R [facility], pH 7.17 L*, Bicarbonate Actual 28.3 H, Total CO2 31, Base Excess 0, O2 Saturation 91 L, ABG pCO2 78.0 H* , ABG pO2 80, O2 Delivery Device Cannula, Liter Flow 4.0 08/20/20 01:02: Specimen Type ART, Sample Site L [facility], pH 7.23 L, Bicarbonate Actual 25.8, Total CO2 28, Base Excess -2, O2 Saturation 96, O2 % 40, ABG pCO2 62.5 H, ABG pO2 97, Respiration Rate 16.0000, O2 Delivery Device BiPAP, Tidal Volume 550 08/20/20 02:20: WBC 14.0 H, RBC 4.10 L, Hgb 11.6 L, Hct 38.9, MCV 94.9, MCH 28.3, MCHC 29.8 L, RDW Std Deviation 58.0 H, RDW Coeff of Darrion 16.6 H, Plt Count 246, MPV 10.2, Immature Gran % (Auto) 0.700, Neut % (Auto) 93.5 H, Lymph % (Auto) 4.9 L, [place] % (Auto) 0.6, Eos % (Auto) 0.1, Baso % (Auto) 0.2, Absolute Neuts (auto) 13.1 H, Absolute Lymphs (auto) 0.69 L, Nucleated RBC % 0 08/20/20 02:20: Sodium 129 L, Potassium 5.7 H, Chloride 97 L, Carbon Dioxide 24.0, Anion Gap 8, BUN 53 H, Creatinine 2.22 H, Estim Creat Clear Calc 29.40, Est GFR (MDRD) Af Amer 31 L, Est GFR (MDRD) Non-Af 26 L, BUN/Creatinine Ratio 23.9 H, Glucose 464 H*, Calcium 8.5 08/20/20 02:20: Hemoglobin A1c Pending 08/20/20 02:25: Lactic Acid 3.4 H* 08/20/20 02:57: POC Glucose 471 H* 08/20/20 04:56: Specimen Type ART, Sample Site R Brach, pH 7.19 L*, Bicarbonate Actual 26.4 H, Total CO2 29, Base Excess -2, O2 Saturation 92 L, O2 % 40, ABG pCO2 70.0 H*, ABG pO2 83, Respiration Rate 16.0000, O2 Delivery Device BiPAP, Tidal Volume 550 08/20/20 06:54: POC Glucose > 500 H* 08/20/20 07:19: Specimen Type ART, Sample Site R Brach, pH 7.20 L, Bicarbonate Actual 26.1 H, Total CO2 28, Base Excess -2, O2 Saturation 85 L, O2 % 50, ABG pCO2 67.0 H, ABG pO2 62 L, Respiration Rate 14.0000, O2 Delivery Device Adult Vent, Vent Mode AC, Tidal Volume 450 Current Medications Acetaminophen (Tylenol) 650 mg PO Q6H PRN PRN PRN Reason: Pain Score 1-10/Temp > 100.7 F Albuterol Sulfate (Ventolin Aerosols) 2.5 mg INHALATION Q2H PRN PRN PRN Reason: SOB/Wheezing Albuterol/Ipratropium (Duoneb) 3 ml INHALATION Q4H.RT KIAN Last Admin: 08/20/20 06:54 Dose: 3 ml Documented by: Chlorhexidine Gluconate () 15 ml PO BID KIAN Dextrose (D50w Syringe) 0 gm IV X1 PRN; Protocol PRN Reason: Hypoglycemia Enoxaparin Sodium (Lovenox) 170 mg SC Q12 [facility] Last Admin: 08/20/20 03:09 Dose: 170 mg Documented by: Glucagon () 1 mg IM .X1 PRN PRN Reason: Hypoglycemia Azithromycin 500 mg/ Dextrose 255 mls @ 250 mls/hr IV Q24@2200 KIAN Stop: 08/22/20 23:02 Sodium Chloride () 250 mls @ 15 mls/hr IV .[id number] PRN PRN Reason: Additional IVPB Infusion Sodium Chloride () 1,000 mls @ 100 mls/hr IV .Q10H KIAN Last Admin: 08/20/20 03:21 Dose: 100 mls/hr Documented by: Naloxone HCl 4 mg/ Dextrose 504 mls @ 63 mls/hr IV .Q8H KIAN; Protocol Last Titration: 08/20/20 05:45 Dose: 0 mg/hr, 0 mls/hr Documented by: Propofol (Diprivan) 1,000 mg in 100 mls @ 10.158 mls/hr CONT INF .Q9H51M [facility]; Protocol Last Titration: 08/20/20 07:00 Dose: 25 mcg/kg/min, 25.4 mls/hr Documented by: Fentanyl Citrate 1,000 mcg/ (Sodium Chloride) 100 mls @ 2.5 mls/hr CONT INF .Q 40H KIAN; Protocol Last Titration: 08/20/20 07:15 Dose: 25 mcg/hr, 2.5 mls/hr Documented by: Insulin Glargine (Lantus (Bkc)) 50 units SC BID [facility] Last Admin: 08/20/20 03:14 Dose: 50 units Documented by: Insulin Human Lispro (Humalog Kwikpen (Bkc)) 0 unit SC Q2H [facility]; Protocol Labetalol HCl (Trandate) 10 mg IV Q6H PRN PRN PRN Reason: SBP > 160 OR DBP > 120 Methylprednisolone (Solu-Medrol) 40 mg IV Q8 KIAN Last Admin: 08/20/20 06:59 Dose: 40 mg Documented by: Naloxone HCl (Narcan) 0.02 mg IV Q1M PRN PRN Reason: RR <10 and pt unresponsive Ondansetron HCl (Zofran) 4 mg IV Q8H PRN PRN PRN Reason: NAUSEA/VOMITING Last Admin: 08/20/20 03:53 Dose: 4 mg Documented by: Sodium Chloride () 10 - 40 ml IV UD PRN PRN Reason: SALINE FLUSH Last Admin: 08/20/20 03:14 Dose: 10 ml Documented by: Clinical Impression(s) from Imaging Studies Chest X-Ray 08/19/20 22:00 IMPRESSION: Pulmonary edema. at 2228 Reported and signed by: Caio Bruno MD Electronically Signed: Caio Bruno MD at 22:27 EDT Tel , Service support , Chest CT 08/19/20 23:19 IMPRESSION: No acute thoracic disease. Hepatomegaly. Individualized dose optimization techniques were used for this CT. at 0200 Reported and signed by: Caio Bruno MD Electronically Signed: Caio Bruno MD at 1:59 EDT Tel , Service support , Brain CT 08/19/20 23:31 IMPRESSION: Negative Brain CT without contrast. Individualized dose optimization techniques were used for this CT. at 0157 Reported and signed by: Caio Bruno MD Electronically Signed: Caio Bruno MD at 1:56 EDT Tel , Service support , Chest X-Ray 08/20/20 06:10 IMPRESSION: Ill-defined subpleural groundglass opacities are seen more prominent in the lung bases , may represent atypical pneumonia or viral pneumonia. NG tube is seen its tip is at the GE junction and can be advanced 10 cm. Electronically Signed: Patti Jensen, at 8:05 EDT Tel , Service support , ADDENDUM: 08/20/20 0821 IMPRESSION: Ill-defined subpleural groundglass opacities are seen more prominent in the lung bases , may represent atypical pneumonia or viral pneumonia. NG tube is seen its tip is at the GE junction and can be advanced 10 cm. N.B. : The above information has been verbally conveyed by Patti Jensen to Berlin Dumont MD, on 08/20/2020 08:14:40 (ET). Electronically Signed: Patti Camila, at 8:05 EDT Tel , Service support , Assessment/Plan RECOMMENDATIONS: 1. Increase tidal volume and continue with permissive hypercapnia 2. Add ceftriaxone to azithromycin 3. Wean oxygen as tolerated 4. Aggressive insulin supplementation 5. Possibly initiate tube feeds once blood sugars better controlled 6. Spontaneous breathing and awakening trials per protocol IMPRESSIONS: 1. Acute on chronic combined respiratory failure Unclear etiology at this time. High clinical suspicion for pulmonary hypertension at baseline, but body habitus makes echocardiogram difficult to interpret. Patient does have lower extremity edema, so volume overload is a consideration. Patient also has a leukocytosis and a questionable left lower lobe infiltrate. Pneumonia cannot be excluded. Sputum culture has been sent. Permissive hypercapnia will be used as a ventilator strategy. Aggressive bronchodilators. Patient is on steroids which may be adding to hyperglycemia. High clinical suspicion for obesity hypoventilation syndrome. However, given chronic opiates this cannot be confirmed. 2. Acute kidney injury Unclear etiology at this time. Patient is on diuretics and TUSHAR inhibitor at home. Patient also had hypoxia on presentation, so this may also lead to an element of ATN. Continue aggressive support. Possibly add diuretics if remains hemodynamically stable. No indication for renal replacement therapy at this time. 3. Severe sepsis secondary to pneumonia versus left lower extremity cellulitis Patient with leukocytosis, left lower lobe infiltrate and left lower extremity warmth. Will add ceftriaxone for now. Patient has not been on recent antibiotics that I can tell to require healthcare associated antibiotics. Blood pressures have been slightly low initially, but this may be secondary to propofol therapy. 4. Metabolic encephalopathy Multiple etiologies for decreased mentation including CO2 narcosis, hyperglycemia and acute kidney injury. Patient currently intubated and appears to be tolerating well. We will continue to monitor. 5. Hyperosmolar nonketotic state secondary to uncontrolled insulin-dependent diabetes mellitus Patient with insulin-dependent diabetes at baseline and is currently on Solu-Medrol therapy. Aggressive insulin therapy for now. We will hold off on insulin drip, but this may be necessary once tube feeds are initiated. 6. Morbid obesity/active tobacco abuse/untreated LOGAN/history of PE/unclear opiate exposure Complicates care, management, recovery and prognosis. Patient currently intubated, but will likely require BiPAP on extubation. Discontinue Narcan. Aggressive aerosol therapy. TIME: 55 minutes critical care time spent addressing patient's respiratory failure, acute kidney injury, sepsis, diabetes mellitus, review of all data and collaboration with care team (5:30 AM to 8:30 AM) [id number]: [id number] Critical care first hour
[2020-08-20 08:17] LABS: Hemoglobin A1c 11.2 % (3.8-5.6)
[2020-08-20 09:36] LABS: Bedside Glucose 495 mg/dL (70-110)
--- NOTE | 2020-08-20 10:02 | NT.THERAPY_ITS ---
Nutrition Therapy Report - History Nutrition Services has been consulted to:: Manage enteral nutrition Current diet / nutrition support order:: NPO - Anthropometric Measurements Height:: 5 ft 5 in Weight:: 169.3 kg Body Mass Index (BMI):: 62.1 - Relevant Labs Relevant Labs:: WBC 14.0 K/mm3 (4.4-11.0) H 08/20/20 02:20 RBC 4.10 M/mm3 (4.2-5.4) L 08/20/20 02:20 Hgb 11.6 g/dL (12.0-15.0) L 08/20/20 02:20 MCHC 29.8 g/dL (32-36) L 08/20/20 02:20 RDW Std Deviation 58.0 fl (35.1-43.9) H 08/20/20 02:20 RDW Coeff of Darrion 16.6 % (11.6-14.6) H 08/20/20 02:20 Neut % (Auto) 93.5 % (47-70) H 08/20/20 02:20 Lymph % (Auto) 4.9 % (19-41) L 08/20/20 02:20 Absolute Neuts (auto) 13.1 X10^3/uL (2.0-7.7) H 08/20/20 02:20 Absolute Lymphs (auto) 0.69 X10^3/uL (0.83-4.51) L 08/20/20 02:20 Sodium 129 mmol/L (136-145) L 08/20/20 02:20 Potassium 5.7 mmol/L (3.5-5.1) H 08/20/20 02:20 Chloride 97 mmol/L (98-107) L 08/20/20 02:20 BUN 53 mg/dL (7-18) H 08/20/20 02:20 Creatinine 2.22 mg/dL (0.55-1.02) H 08/20/20 02:20 Est GFR (MDRD) Af Amer 31 mL/min (>60) L 08/20/20 02:20 Est GFR (MDRD) Non-Af 26 mL/min (>60) L 08/20/20 02:20 BUN/Creatinine Ratio 23.9 RATIO (10-20) H 08/20/20 02:20 Glucose 464 mg/dL (74-106) H* 08/20/20 02:20 Hemoglobin A1c 11.2 % (3.8-5.6) H 08/20/20 02:20 Lactic Acid 3.4 mmol/L (0.4-1.9) H* 08/20/20 02:25 AST 10 U/L (15-37) L 08/19/20 21:00 Albumin 2.8 g/dL (3.2-5.0) L 08/19/20 21:00 Globulin 4.5 g/dL (2.2-4.2) H 08/19/20 21:00 Albumin/Globulin Ratio 0.6 RATIO (0.9-2.4) L 08/19/20 21:00 - Assessment Food / Nutrition-Related History:: Discussed in ICU rounds. Pt intubated this AM. Unable to participate in assessment. OGT placed. Significant hyperglycemia this AM- OK for tube feeds later today if blood sugars improve. Per EMR, wt on 04/20/20 was 359.4# and CBW 373.2# suggesting wt gain. A1C suggests poor long- term glycemic control. - Nutrition Diagnosis Problem / Etiology / Signs & Symptoms (PES):: Inadequate oral intake related to mechanical ventillation, resp. failure as evidenced by no nutritional intake since admission Evidence of Malnutrition Exists:: No - Nutrition Intervention Nutrition Prescription:: 5048-4637 calories/day, 112-140g protein/day. (Using ASPEN guidelines for critically ill, morbidly obese patients to calculate nutritional needs: 2-2.5g/kg IBW (56kg) and 22-25 calories/kg IBW.) - Food / Nutrient Delivery Interventions Summary of nutrition intervention:: If pt to remain intubated, recommend enteral nutrition support via OG. Nutrition support ordered as / adjusted to:: Vital HP at goal rate of 60mL/hour w/ 75mL H2O flush every 4 hours to provide 1440 calories, 125 g protein, and 1653mL total fluid/day. Would start at 20mL/hour and increase by 10mL every 8 hours as pt tolerates until goal rate achieved. Per Dr. Dumont, do not initiate tube feeds until blood glucose improves. - MNT Monitoring Further MNT monitoring and evaluation required?: Yes MNT Follow-up in:: 1-2 days
[2020-08-20] MEDS: Propofol 10MG/Ml 1,000 MG/100 ML Bottle 40 MG CONT INF (10:43)
[2020-08-20] MEDS: Chlorhexidine 15 ML PO ×2 (10:45→21:15)
[2020-08-20 11:35] LABS: Bedside Glucose 493 mg/dL (70-110)
[2020-08-20 11:58] LABS: CPK Total, Creatine Kinase 98 U/L (26-192); Triglycerides 170 mg/dL
[2020-08-20 12:35] LABS: Bedside Glucose 381 mg/dL (70-110)
[2020-08-20 13:36] LABS: Bedside Glucose 351 mg/dL (70-110)
[2020-08-20] MEDS: Propofol 10MG/Ml 1,000 MG/100 ML Bottle 20 MG CONT INF (14:00)
[2020-08-20 14:40] LABS: Bedside Glucose 320 mg/dL (70-110)
[2020-08-20 15:17] LABS: Anion Gap 7 (5-15); BUN 62 mg/dL (7-18); BUN/Creat Ratio 35.4 RATIO (10-20); Calcium,Total 8.6 mg/dL (8.5-10.1); Chloride 100 mmol/L (98-107); Creatinine, Serum 1.75 mg/dL (0.55-1.02); EST Glomerular Filtration Rate 34 mL/min (>60); Est Glom Filt Rate - Afr Amer 41 mL/min (>60); Glucose 353 mg/dL (74-106); Potassium 4.8 mmol/L (3.5-5.1); Sodium Level 134 mmol/L (136-145)
[2020-08-20] MEDS: Vital High Protein 1,000 ML 20 ML GT (15:50)
[2020-08-20 16:30] LABS: Bedside Glucose 336 mg/dL (70-110)
[2020-08-20 16:55] LABS: Bedside Glucose 332 mg/dL (70-110)
[2020-08-20 17:40] LABS: Bedside Glucose 314 mg/dL (70-110)
[2020-08-20] MEDS: Propofol 10MG/Ml 1,000 MG/100 ML Bottle 25 MG CONT INF (17:52)
[2020-08-20] MEDS: Furosemide 40 MG/4 ML Vial IV (17:53)
[2020-08-20 18:31] LABS: Bedside Glucose 293 mg/dL (70-110)
[2020-08-20 19:31] LABS: Bedside Glucose 239 mg/dL (70-110)
[2020-08-20 20:36] LABS: Bedside Glucose 283 mg/dL (70-110)
[2020-08-20] MEDS: Propofol 10MG/Ml 1,000 MG/100 ML Bottle 25.4 MG CONT INF (21:15)
[2020-08-20 21:50] LABS: Bedside Glucose 261 mg/dL (70-110)
[2020-08-20 22:31] LABS: Bedside Glucose 291 mg/dL (70-110)
[2020-08-20 22:44] LABS: Anion Gap 5 (5-15); BUN 58 mg/dL (7-18); BUN/Creat Ratio 46.8 RATIO (10-20); Calcium,Total 8.7 mg/dL (8.5-10.1); Chloride 102 mmol/L (98-107); Creatinine, Serum 1.24 mg/dL (0.55-1.02); EST Glomerular Filtration Rate 50 mL/min (>60); Est Glom Filt Rate - Afr Amer 61 mL/min (>60); Estimated Creatinine Clearance 52.64 ml/min; Glucose 283 mg/dL (74-106); Potassium 4.6 mmol/L (3.5-5.1); Sodium Level 136 mmol/L (136-145)
[2020-08-20 23:31] LABS: Bedside Glucose 259 mg/dL (70-110)
[2020-08-21] VITALS (43 sets, daily range): BP systolic 101–164; BP diastolic 49–79; PULSE 75–102; RESP 14–22; TEMP 37.3–37.6; O2SAT 92–100
[2020-08-21] MEDS: Propofol 10MG/Ml 1,000 MG/100 ML Bottle 25.4 MG CONT INF (00:17)
[2020-08-21 00:31] LABS: Bedside Glucose 242 mg/dL (70-110)
[2020-08-21 01:36] LABS: Bedside Glucose 222 mg/dL (70-110)
[2020-08-21 02:46] LABS: Bedside Glucose 239 mg/dL (70-110)
[2020-08-21] MEDS: Propofol 10MG/Ml 1,000 MG/100 ML Bottle 35.6 MG CONT INF (02:54)
[2020-08-21] MEDS: 0.9% Saline Lock 10 ML Syringe IV ×2 (03:06→17:00)
[2020-08-21] MEDS: Ipratropium/Albuterol Sulfate 3 ML AMPUL.NEB INHALATION ×6 (03:35→22:45)
[2020-08-21] MEDS: TITRATION PARAMETER CHANGE 1 EACH IV (03:41)
[2020-08-21 04:10] LABS: Bedside Glucose 242 mg/dL (70-110)
[2020-08-21 05:11] LABS: Bedside Glucose 265 mg/dL (70-110)
[2020-08-21] MEDS: Propofol 10MG/Ml 1,000 MG/100 ML Bottle 35.3 MG CONT INF ×3 (05:16→09:54)
[2020-08-21 05:41] LABS: Bedside Glucose 276 mg/dL (70-110)
--- NOTE | 2020-08-21 06:15 | PCM.PN.INT ---
Subjective: The patient was seen and examined at the bedside this morning. Events from the last 24 hours have been reviewed. The patient is currently afebrile, hemodynamically stable and maintaining appropriate oxygen saturations on assist control mode of mechanical ventilation with an FiO2 requirement of 45%. She remains sedated on both propofol and fentanyl. She is currently tolerating tube feeds without issue. The patient does apparently utilize opiate pain medications without a prescription, per family discussion. Her OARRS report was reviewed with the pharmacist and there were no recent opiate prescriptions on file. Per outpatient pulmonary documentation, the patient has poor compliance with the use of home supplemental oxygen and BiPAP. Objective: The patient's most recent lab work, culture data and imaging studies have all been personally reviewed. Strep and urine Legionella antigens were negative. Coronavirus PCR was negative. Blood, urine and sputum cultures are pending. General: - - Currently intubated, sedated and mechanically ventilated. Super morbidly obese. HEENT: Atraumatic, Normocephalic Oral: No Gingival or Mucosal Lesions/ Ulcerations, - - Endotracheal and OG tubes in place Neck: Supple, No Nodes, Trachea Midline Lungs: - - Coarse mechanical breath sounds with expiratory wheeze. Cardiovascular: Regular rate, Regular Rhythm Abdomen: Bowel Sounds Present, Soft, Obese Extremities: No clubbing, No cyanosis, Edema Skin: No breakdown, - - Lower extremity venous stasis dermatitis without evidence of cellulitis. Musculoskeletal: No Muscle Wasting Lymphatic: No Cervical, Supraclavicular, or Inguinal Adenopathy Neurological: - - No focal neurological deficits. Currently sedated. Vital Signs Temp Pulse Resp BP Pulse Ox 99.4 F H 89 18 129/62 H 94 08/21/20 06:00 08/21/20 06:00 08/21/20 06:00 08/21/20 06:00 08/21/20 06:00 Oxygen Flow Rate (L/min) 6 Oxygen Delivery Method Mechanical Ventilator Weight: 370 lb 2.498 oz Body Mass Index (BMI) 62.1 Finger Stick Blood Glucose 276 Intake and Output for Last 24 Hours 08/19/20 08/20/20 08/21/20 23:59 23:59 23:59 Intake Total 2865.05 / 3110.20 904.01 / 904.01 Output Total 2550 / 2775 905 / 905 Balance 315.05 / 335.20 -0.99 / -0.99 Labs (Last 48 Hours) 08/19/20 08/19/20 08/19/20 20:50 21:00 21:00 WBC 14.2 H RBC 4.18 L Hgb 11.7 L Hct 39.0 MCV 93.3 MCH 28.0 MCHC 30.0 L RDW Std Deviation 56.1 H RDW Coeff of Darrion 16.7 H Plt Count 259 MPV 10.4 Immature Gran % (Auto) 0.600 Neut % (Auto) 83.2 H Lymph % (Auto) 10.4 L [place] % (Auto) 4.9 Eos % (Auto) 0.4 Baso % (Auto) 0.5 Absolute Neuts (auto) 11.8 H Absolute Lymphs (auto) 1.47 Nucleated RBC % 0 Specimen Type Sample Site pH Bicarbonate Actual Total CO2 Base Excess O2 Saturation O2 % ABG pCO2 ABG pO2 Respiration Rate O2 Delivery Device Liter Flow Vent Mode Tidal Volume Sodium 132 L Potassium 5.0 Chloride 97 L Carbon Dioxide 28.0 Anion Gap 7 BUN 49 H Creatinine 2.12 H Estim Creat Clear Calc 30.79 Est GFR (MDRD) Af Amer 33 L Est GFR (MDRD) Non-Af 27 L BUN/Creatinine Ratio 23.1 H Glucose 338 H Hemoglobin A1c Lactic Acid Calcium 8.6 Total Bilirubin 0.20 AST 10 L ALT 13 Alkaline Phosphatase 96 Total Creatine Kinase Troponin I < 0.015 B-Natriuretic Peptide Total Protein 7.3 Albumin 2.8 L Globulin 4.5 H Albumin/Globulin Ratio 0.6 L Triglycerides Serum , Qual Urine Color Urine Clarity Urine pH Ur Specific [place] Urine Protein Urine Glucose (UA) Urine Ketones Urine Occult Blood Urine Nitrite Urine Bilirubin Urine Urobilinogen Ur Leukocyte Esterase Urine RBC Urine WBC Ur Squamous Epith Cells Ur Transition Epith Cell Urine Bacteria Hyaline Casts Urine Mucus Urine Opiates Screen Urine Methadone Screen Ur Barbiturates Screen Ur Phencyclidine Scrn Ur Amphetamines Screen U Methamphetamin-MDMA U Benzodiazepines Scrn Urine Cocaine Screen U Cannabinoids Screen Ur Drug Screen Comment COVID-19 (SURESH) Negative POC Glucose 08/19/20 08/19/20 08/19/20 21:00 21:00 21:00 WBC RBC Hgb Hct MCV MCH MCHC RDW Std Deviation RDW Coeff of Darrion Plt Count MPV Immature Gran % (Auto) Neut % (Auto) Lymph % (Auto) [place] % (Auto) Eos % (Auto) Baso % (Auto) Absolute Neuts (auto) Absolute Lymphs (auto) Nucleated RBC % Specimen Type Sample Site pH Bicarbonate Actual Total CO2 Base Excess O2 Saturation O2 % ABG pCO2 ABG pO2 Respiration Rate O2 Delivery Device Liter Flow Vent Mode Tidal Volume Sodium Potassium Chloride Carbon Dioxide Anion Gap BUN Creatinine Estim Creat Clear Calc Est GFR (MDRD) Af Amer Est GFR (MDRD) Non-Af BUN/Creatinine Ratio Glucose Hemoglobin A1c Lactic Acid 2.0 Calcium Total Bilirubin AST ALT Alkaline Phosphatase Total Creatine Kinase Troponin I B-Natriuretic Peptide 38.0 Total Protein Albumin Globulin Albumin/Globulin Ratio Triglycerides Serum , Qual NEGATIVE Urine Color Urine Clarity Urine pH Ur Specific [place] Urine Protein Urine Glucose (UA) Urine Ketones Urine Occult Blood Urine Nitrite Urine Bilirubin Urine Urobilinogen Ur Leukocyte Esterase Urine RBC Urine WBC Ur Squamous Epith Cells Ur Transition Epith Cell Urine Bacteria Hyaline Casts Urine Mucus Urine Opiates Screen Urine Methadone Screen Ur Barbiturates Screen Ur Phencyclidine Scrn Ur Amphetamines Screen U Methamphetamin-MDMA U Benzodiazepines Scrn Urine Cocaine Screen U Cannabinoids Screen Ur Drug Screen Comment COVID-19 (SURES[facility]) POC Glucose 08/19/20 08/19/20 08/19/20 22:19 22:19 22:59 WBC RBC Hgb Hct MCV MCH MCHC RDW Std Deviation RDW Coeff of Darrion Plt Count MPV Immature Gran % (Auto) Neut % (Auto) Lymph % (Auto) [place] % (Auto) Eos % (Auto) Baso % (Auto) Absolute Neuts (auto) Absolute Lymphs (auto) Nucleated RBC % Specimen Type ART Sample Site R Brach pH 7.17 L* Bicarbonate Actual 28.3 H Total CO2 31 Base Excess 0 O2 Saturation 91 L O2 % ABG pCO2 78.0 H* ABG pO2 80 Respiration Rate O2 Delivery Device Cannula Liter Flow 4.0 Vent Mode Tidal Volume Sodium Potassium Chloride Carbon Dioxide Anion Gap BUN Creatinine Estim Creat Clear Calc Est GFR (MDRD) Af Amer Est GFR (MDRD) Non-Af BUN/Creatinine Ratio Glucose Hemoglobin A1c Lactic Acid Calcium Total Bilirubin AST ALT Alkaline Phosphatase Total Creatine Kinase Troponin I B-Natriuretic Peptide Total Protein Albumin Globulin Albumin/Globulin Ratio Triglycerides Serum , Qual Urine Color Yellow Urine Clarity Sl. Cloudy Urine pH 5.0 Ur Specific [place] 1.020 Urine Protein 30 H Urine Glucose (UA) 50 H Urine Ketones 5 H Urine Occult Blood 10 H Urine Nitrite Negative Urine Bilirubin 1 H Urine Urobilinogen 1 H Ur Leukocyte Esterase 25 H Urine RBC 0-5 SEEN Urine WBC 5-10 SEEN Ur Squamous Epith Cells 5-10 SEEN Ur Transition Epith Cell 0-5 SEEN Urine Bacteria 1+ Hyaline Casts 5-10 SEEN Urine Mucus 0 SEEN Urine Opiates Screen POSITIVE H Urine Methadone Screen NEGATIVE Ur Barbiturates Screen NEGATIVE Ur Phencyclidine Scrn NEGATIVE Ur Amphetamines Screen NEGATIVE U Methamphetamin-MDMA NEGATIVE U Benzodiazepines Scrn NEGATIVE Urine Cocaine Screen NEGATIVE U Cannabinoids Screen NEGATIVE Ur Drug Screen Comment COVID-19 ([facility]) POC Glucose 08/20/20 08/20/20 08/20/20 01:02 02:20 02:20 WBC 14.0 H RBC 4.10 L Hgb 11.6 L Hct 38.9 MCV 94.9 MCH 28.3 MCHC 29.8 L RDW Std Deviation 58.0 H RDW Coeff of Darrion 16.6 H Plt Count 246 MPV 10.2 Immature Gran % (Auto) 0.700 Neut % (Auto) 93.5 H Lymph % (Auto) 4.9 L [place] % (Auto) 0.6 Eos % (Auto) 0.1 Baso % (Auto) 0.2 Absolute Neuts (auto) 13.1 H Absolute Lymphs (auto) 0.69 L Nucleated RBC % 0 Specimen Type ART Sample Site L Brach pH 7.23 L Bicarbonate Actual 25.8 Total CO2 28 Base Excess -2 O2 Saturation 96 O2 % 40 ABG pCO2 62.5 H ABG pO2 97 Respiration Rate 16.0000 O2 Delivery Device BiPAP Liter Flow Vent Mode Tidal Volume 550 Sodium 129 L Potassium 5.7 H Chloride 97 L Carbon Dioxide 24.0 Anion Gap 8 BUN 53 H Creatinine 2.22 H Estim Creat Clear Calc 29.40 Est GFR (MDRD) Af Amer 31 L Est GFR (MDRD) Non-Af 26 L BUN/Creatinine Ratio 23.9 H Glucose 464 H* Hemoglobin A1c Lactic Acid Calcium 8.5 Total Bilirubin AST ALT Alkaline Phosphatase Total Creatine Kinase Troponin I B-Natriuretic Peptide Total Protein Albumin Globulin Albumin/Globulin Ratio Triglycerides Serum , Qual Urine Color Urine Clarity Urine pH Ur Specific [place] Urine Protein Urine Glucose (UA) Urine Ketones Urine Occult Blood Urine Nitrite Urine Bilirubin Urine Urobilinogen Ur Leukocyte Esterase Urine RBC Urine WBC Ur Squamous Epith Cells Ur Transition Epith Cell Urine Bacteria Hyaline Casts Urine Mucus Urine Opiates Screen Urine Methadone Screen Ur Barbiturates Screen Ur Phencyclidine Scrn Ur Amphetamines Screen U Methamphetamin-MDMA U Benzodiazepines Scrn Urine Cocaine Screen U Cannabinoids Screen Ur Drug Screen Comment COVID-19 (SURES[facility]) POC Glucose 08/20/20 08/20/20 08/20/20 02:20 02:20 02:25 WBC RBC Hgb Hct MCV MCH MCHC RDW Std Deviation RDW Coeff of Darrion Plt Count MPV Immature Gran % (Auto) Neut % (Auto) Lymph % (Auto) [place] % (Auto) Eos % (Auto) Baso % (Auto) Absolute Neuts (auto) Absolute Lymphs (auto) Nucleated RBC % Specimen Type Sample Site pH Bicarbonate Actual Total CO2 Base Excess O2 Saturation O2 % ABG pCO2 ABG pO2 Respiration Rate O2 Delivery Device Liter Flow Vent Mode Tidal Volume Sodium Potassium Chloride Carbon Dioxide Anion Gap BUN Creatinine Estim Creat Clear Calc Est GFR (MDRD) Af Amer Est GFR (MDRD) Non-Af BUN/Creatinine Ratio Glucose Hemoglobin A1c 11.2 H Lactic Acid 3.4 H* Calcium Total Bilirubin AST ALT Alkaline Phosphatase Total Creatine Kinase 98 Troponin I B-Natriuretic Peptide Total Protein Albumin Globulin Albumin/Globulin Ratio Triglycerides 170 Serum , Qual Urine Color Urine Clarity Urine pH Ur Specific [place] Urine Protein Urine Glucose (UA) Urine Ketones Urine Occult Blood Urine Nitrite Urine Bilirubin Urine Urobilinogen Ur Leukocyte Esterase Urine RBC Urine WBC Ur Squamous Epith Cells Ur Transition Epith Cell Urine Bacteria Hyaline Casts Urine Mucus Urine Opiates Screen Urine Methadone Screen Ur Barbiturates Screen Ur Phencyclidine Scrn Ur Amphetamines Screen U Methamphetamin-MDMA U Benzodiazepines Scrn Urine Cocaine Screen U Cannabinoids Screen Ur Drug Screen Comment COVID-19 ([facility]) POC Glucose 08/20/20 08/20/20 08/20/20 02:57 04:56 06:54 WBC RBC Hgb Hct MCV MCH MCHC RDW Std Deviation RDW Coeff of Darrion Plt Count MPV Immature Gran % (Auto) Neut % (Auto) Lymph % (Auto) [place] % (Auto) Eos % (Auto) Baso % (Auto) Absolute Neuts (auto) Absolute Lymphs (auto) Nucleated RBC % Specimen Type ART Sample Site R Brach pH 7.19 L* Bicarbonate Actual 26.4 H Total CO2 29 Base Excess -2 O2 Saturation 92 L O2 % 40 ABG pCO2 70.0 H* ABG pO2 83 Respiration Rate 16.0000 O2 Delivery Device BiPAP Liter Flow Vent Mode Tidal Volume 550 Sodium Potassium Chloride Carbon Dioxide Anion Gap BUN Creatinine Estim Creat Clear Calc Est GFR (MDRD) Af Amer Est GFR (MDRD) Non-Af BUN/Creatinine Ratio Glucose Hemoglobin A1c Lactic Acid Calcium Total Bilirubin AST ALT Alkaline Phosphatase Total Creatine Kinase Troponin I B-Natriuretic Peptide Total Protein Albumin Globulin Albumin/Globulin Ratio Triglycerides Serum , Qual Urine Color Urine Clarity Urine pH Ur Specific [place] Urine Protein Urine Glucose (UA) Urine Ketones Urine Occult Blood Urine Nitrite Urine Bilirubin Urine Urobilinogen Ur Leukocyte Esterase Urine RBC Urine WBC Ur Squamous Epith Cells Ur Transition Epith Cell Urine Bacteria Hyaline Casts Urine Mucus Urine Opiates Screen Urine Methadone Screen Ur Barbiturates Screen Ur Phencyclidine Scrn Ur Amphetamines Screen U Methamphetamin-MDMA U Benzodiazepines Scrn Urine Cocaine Screen U Cannabinoids Screen Ur Drug Screen Comment COVID-19 (SURESH) POC Glucose 471 H* > 500 H* 08/20/20 08/20/20 08/20/20 07:19 08:02 09:55 WBC RBC Hgb Hct MCV MCH MCHC RDW Std Deviation RDW Coeff of Darrion Plt Count MPV Immature Gran % (Auto) Neut % (Auto) Lymph % (Auto) [place] % (Auto) Eos % (Auto) Baso % (Auto) Absolute Neuts (auto) Absolute Lymphs (auto) Nucleated RBC % Specimen Type ART Sample Site R Brach pH 7.20 L Bicarbonate Actual 26.1 H Total CO2 28 Base Excess -2 O2 Saturation 85 L O2 % 50 ABG pCO2 67.0 H ABG pO2 62 L Respiration Rate 14.0000 O2 Delivery Device Adult Vent Liter Flow Vent Mode AC Tidal Volume 450 Sodium Potassium Chloride Carbon Dioxide Anion Gap BUN Creatinine Estim Creat Clear Calc Est GFR (MDRD) Af Amer Est GFR (MDRD) Non-Af BUN/Creatinine Ratio Glucose Hemoglobin A1c Lactic Acid Calcium Total Bilirubin AST ALT Alkaline Phosphatase Total Creatine Kinase Troponin I B-Natriuretic Peptide Total Protein Albumin Globulin Albumin/Globulin Ratio Triglycerides Serum , Qual Urine Color Urine Clarity Urine pH Ur Specific [place] Urine Protein Urine Glucose (UA) Urine Ketones Urine Occult Blood Urine Nitrite Urine Bilirubin Urine Urobilinogen Ur Leukocyte Esterase Urine RBC Urine WBC Ur Squamous Epith Cells Ur Transition Epith Cell Urine Bacteria Hyaline Casts Urine Mucus Urine Opiates Screen Urine Methadone Screen Ur Barbiturates Screen Ur Phencyclidine Scrn Ur Amphetamines Screen U Methamphetamin-MDMA U Benzodiazepines Scrn Urine Cocaine Screen U Cannabinoids Screen Ur Drug Screen Comment COVID-19 ([facility]) POC Glucose 495 H* 493 H* 08/20/20 08/20/20 08/20/20 12:28 13:33 14:35 WBC RBC Hgb Hct MCV MCH MCHC RDW Std Deviation RDW Coeff of Darrion Plt Count MPV Immature Gran % (Auto) Neut % (Auto) Lymph % (Auto) [place] % (Auto) Eos % (Auto) Baso % (Auto) Absolute Neuts (auto) Absolute Lymphs (auto) Nucleated RBC % Specimen Type Sample Site pH Bicarbonate Actual Total CO2 Base Excess O2 Saturation O2 % ABG pCO2 ABG pO2 Respiration Rate O2 Delivery Device Liter Flow Vent Mode Tidal Volume Sodium 134 L Potassium 4.8 Chloride 100 Carbon Dioxide 27.0 Anion Gap 7 BUN 62 H Creatinine 1.75 H Estim Creat Clear Calc 37.30 Est GFR (MDRD) Af Amer 41 L Est GFR (MDRD) Non-Af 34 L BUN/Creatinine Ratio 35.4 H Glucose 353 H Hemoglobin A1c Lactic Acid Calcium 8.6 Total Bilirubin AST ALT Alkaline Phosphatase Total Creatine Kinase Troponin I B-Natriuretic Peptide Total Protein Albumin Globulin Albumin/Globulin Ratio Triglycerides Serum , Qual Urine Color Urine Clarity Urine pH Ur Specific [place] Urine Protein Urine Glucose (UA) Urine Ketones Urine Occult Blood Urine Nitrite Urine Bilirubin Urine Urobilinogen Ur Leukocyte Esterase Urine RBC Urine WBC Ur Squamous Epith Cells Ur Transition Epith Cell Urine Bacteria Hyaline Casts Urine Mucus Urine Opiates Screen Urine Methadone Screen Ur Barbiturates Screen Ur Phencyclidine Scrn Ur Amphetamines Screen U Methamphetamin-MDMA U Benzodiazepines Scrn Urine Cocaine Screen U Cannabinoids Screen Ur Drug Screen Comment COVID-19 (SURES[facility]) POC Glucose 381 H 351 H 08/20/20 08/20/20 08/20/20 14:38 15:33 16:42 WBC RBC Hgb Hct MCV MCH MCHC RDW Std Deviation RDW Coeff of Darrion Plt Count MPV Immature Gran % (Auto) Neut % (Auto) Lymph % (Auto) [place] % (Auto) Eos % (Auto) Baso % (Auto) Absolute Neuts (auto) Absolute Lymphs (auto) Nucleated RBC % Specimen Type Sample Site pH Bicarbonate Actual Total CO2 Base Excess O2 Saturation O2 % ABG pCO2 ABG pO2 Respiration Rate O2 Delivery Device Liter Flow Vent Mode Tidal Volume Sodium Potassium Chloride Carbon Dioxide Anion Gap BUN Creatinine Estim Creat Clear Calc Est GFR (MDRD) Af Amer Est GFR (MDRD) Non-Af BUN/Creatinine Ratio Glucose Hemoglobin A1c Lactic Acid Calcium Total Bilirubin AST ALT Alkaline Phosphatase Total Creatine Kinase Troponin I B-Natriuretic Peptide Total Protein Albumin Globulin Albumin/Globulin Ratio Triglycerides Serum , Qual Urine Color Urine Clarity Urine pH Ur Specific [place] Urine Protein Urine Glucose (UA) Urine Ketones Urine Occult Blood Urine Nitrite Urine Bilirubin Urine Urobilinogen Ur Leukocyte Esterase Urine RBC Urine WBC Ur Squamous Epith Cells Ur Transition Epith Cell Urine Bacteria Hyaline Casts Urine Mucus Urine Opiates Screen Urine Methadone Screen Ur Barbiturates Screen Ur Phencyclidine Scrn Ur Amphetamines Screen U Methamphetamin-MDMA U Benzodiazepines Scrn Urine Cocaine Screen U Cannabinoids Screen Ur Drug Screen Comment COVID-19 (SURES[facility]) POC Glucose 320 H 336 H 332 H 08/20/20 08/20/20 08/20/20 17:35 18:29 19:26 WBC RBC Hgb Hct MCV MCH MCHC RDW Std Deviation RDW Coeff of Darrion Plt Count MPV Immature Gran % (Auto) Neut % (Auto) Lymph % (Auto) [place] % (Auto) Eos % (Auto) Baso % (Auto) Absolute Neuts (auto) Absolute Lymphs (auto) Nucleated RBC % Specimen Type Sample Site pH Bicarbonate Actual Total CO2 Base Excess O2 Saturation O2 % ABG pCO2 ABG pO2 Respiration Rate O2 Delivery Device Liter Flow Vent Mode Tidal Volume Sodium Potassium Chloride Carbon Dioxide Anion Gap BUN Creatinine Estim Creat Clear Calc Est GFR (MDRD) Af Amer Est GFR (MDRD) Non-Af BUN/Creatinine Ratio Glucose Hemoglobin A1c Lactic Acid Calcium Total Bilirubin AST ALT Alkaline Phosphatase Total Creatine Kinase Troponin I B-Natriuretic Peptide Total Protein Albumin Globulin Albumin/Globulin Ratio Triglycerides Serum , Qual Urine Color Urine Clarity Urine pH Ur Specific [place] Urine Protein Urine Glucose (UA) Urine Ketones Urine Occult Blood Urine Nitrite Urine Bilirubin Urine Urobilinogen Ur Leukocyte Esterase Urine RBC Urine WBC Ur Squamous Epith Cells Ur Transition Epith Cell Urine Bacteria Hyaline Casts Urine Mucus Urine Opiates Screen Urine Methadone Screen Ur Barbiturates Screen Ur Phencyclidine Scrn Ur Amphetamines Screen U Methamphetamin-MDMA U Benzodiazepines Scrn Urine Cocaine Screen U Cannabinoids Screen Ur Drug Screen Comment COVID-19 ([facility]) POC Glucose 314 H 293 H 239 H 08/20/20 08/20/20 08/20/20 20:34 21:45 22:00 WBC RBC Hgb Hct MCV MCH MCHC RDW Std Deviation RDW Coeff of Darrion Plt Count MPV Immature Gran % (Auto) Neut % (Auto) Lymph % (Auto) [place] % (Auto) Eos % (Auto) Baso % (Auto) Absolute Neuts (auto) Absolute Lymphs (auto) Nucleated RBC % Specimen Type Sample Site pH Bicarbonate Actual Total CO2 Base Excess O2 Saturation O2 % ABG pCO2 ABG pO2 Respiration Rate O2 Delivery Device Liter Flow Vent Mode Tidal Volume Sodium 136 Potassium 4.6 Chloride 102 Carbon Dioxide 29.0 Anion Gap 5 BUN 58 H Creatinine 1.24 H Estim Creat Clear Calc 52.64 Est GFR (MDRD) Af Amer 61 Est GFR (MDRD) Non-Af 50 L BUN/Creatinine Ratio 46.8 H Glucose 283 H Hemoglobin A1c Lactic Acid Calcium 8.7 Total Bilirubin AST ALT Alkaline Phosphatase Total Creatine Kinase Troponin I B-Natriuretic Peptide Total Protein Albumin Globulin Albumin/Globulin Ratio Triglycerides Serum , Qual Urine Color Urine Clarity Urine pH Ur Specific [place] Urine Protein Urine Glucose (UA) Urine Ketones Urine Occult Blood Urine Nitrite Urine Bilirubin Urine Urobilinogen Ur Leukocyte Esterase Urine RBC Urine WBC Ur Squamous Epith Cells Ur Transition Epith Cell Urine Bacteria Hyaline Casts Urine Mucus Urine Opiates Screen Urine Methadone Screen Ur Barbiturates Screen Ur Phencyclidine Scrn Ur Amphetamines Screen U Methamphetamin-MDMA U Benzodiazepines Scrn Urine Cocaine Screen U Cannabinoids Screen Ur Drug Screen Comment COVID-19 ([facility]) POC Glucose 283 H 261 H 08/20/20 08/20/20 08/21/20 22:26 23:27 00:27 WBC RBC Hgb Hct MCV MCH MCHC RDW Std Deviation RDW Coeff of Darrion Plt Count MPV Immature Gran % (Auto) Neut % (Auto) Lymph % (Auto) [place] % (Auto) Eos % (Auto) Baso % (Auto) Absolute Neuts (auto) Absolute Lymphs (auto) Nucleated RBC % Specimen Type Sample Site pH Bicarbonate Actual Total CO2 Base Excess O2 Saturation O2 % ABG pCO2 ABG pO2 Respiration Rate O2 Delivery Device Liter Flow Vent Mode Tidal Volume Sodium Potassium Chloride Carbon Dioxide Anion Gap BUN Creatinine Estim Creat Clear Calc Est GFR (MDRD) Af Amer Est GFR (MDRD) Non-Af BUN/Creatinine Ratio Glucose Hemoglobin A1c Lactic Acid Calcium Total Bilirubin AST ALT Alkaline Phosphatase Total Creatine Kinase Troponin I B-Natriuretic Peptide Total Protein Albumin Globulin Albumin/Globulin Ratio Triglycerides Serum , Qual Urine Color Urine Clarity Urine pH Ur Specific [place] Urine Protein Urine Glucose (UA) Urine Ketones Urine Occult Blood Urine Nitrite Urine Bilirubin Urine Urobilinogen Ur Leukocyte Esterase Urine RBC Urine WBC Ur Squamous Epith Cells Ur Transition Epith Cell Urine Bacteria Hyaline Casts Urine Mucus Urine Opiates Screen Urine Methadone Screen Ur Barbiturates Screen Ur Phencyclidine Scrn Ur Amphetamines Screen U Methamphetamin-MDMA U Benzodiazepines Scrn Urine Cocaine Screen U Cannabinoids Screen Ur Drug Screen Comment COVID-19 ([facility]) POC Glucose 291 H 259 H 242 H 08/21/20 08/21/20 08/21/20 01:31 02:38 03:31 WBC RBC Hgb Hct MCV MCH MCHC RDW Std Deviation RDW Coeff of Darrion Plt Count MPV Immature Gran % (Auto) Neut % (Auto) Lymph % (Auto) [place] % (Auto) Eos % (Auto) Baso % (Auto) Absolute Neuts (auto) Absolute Lymphs (auto) Nucleated RBC % Specimen Type Sample Site pH Bicarbonate Actual Total CO2 Base Excess O2 Saturation O2 % ABG pCO2 ABG pO2 Respiration Rate O2 Delivery Device Liter Flow Vent Mode Tidal Volume Sodium Potassium Chloride Carbon Dioxide Anion Gap BUN Creatinine Estim Creat Clear Calc Est GFR (MDRD) Af Amer Est GFR (MDRD) Non-Af BUN/Creatinine Ratio Glucose Hemoglobin A1c Lactic Acid Calcium Total Bilirubin AST ALT Alkaline Phosphatase Total Creatine Kinase Troponin I B-Natriuretic Peptide Total Protein Albumin Globulin Albumin/Globulin Ratio Triglycerides Serum , Qual Urine Color Urine Clarity Urine pH Ur Specific [place] Urine Protein Urine Glucose (UA) Urine Ketones Urine Occult Blood Urine Nitrite Urine Bilirubin Urine Urobilinogen Ur Leukocyte Esterase Urine RBC Urine WBC Ur Squamous Epith Cells Ur Transition Epith Cell Urine Bacteria Hyaline Casts Urine Mucus Urine Opiates Screen Urine Methadone Screen Ur Barbiturates Screen Ur Phencyclidine Scrn Ur Amphetamines Screen U Methamphetamin-MDMA U Benzodiazepines Scrn Urine Cocaine Screen U Cannabinoids Screen Ur Drug Screen Comment COVID-19 ([facility]URES[facility]) POC Glucose 222 H 239 H 242 H 08/21/20 08/21/20 04:30 05:25 WBC RBC Hgb Hct MCV MCH MCHC RDW Std Deviation RDW Coeff of Darrion Plt Count MPV Immature Gran % (Auto) Neut % (Auto) Lymph % (Auto) [place] % (Auto) Eos % (Auto) Baso % (Auto) Absolute Neuts (auto) Absolute Lymphs (auto) Nucleated RBC % Specimen Type Sample Site pH Bicarbonate Actual Total CO2 Base Excess O2 Saturation O2 % ABG pCO2 ABG pO2 Respiration Rate O2 Delivery Device Liter Flow Vent Mode Tidal Volume Sodium Potassium Chloride Carbon Dioxide Anion Gap BUN Creatinine Estim Creat Clear Calc Est GFR (MDRD) Af Amer Est GFR (MDRD) Non-Af BUN/Creatinine Ratio Glucose Hemoglobin A1c Lactic Acid Calcium Total Bilirubin AST ALT Alkaline Phosphatase Total Creatine Kinase Troponin I B-Natriuretic Peptide Total Protein Albumin Globulin Albumin/Globulin Ratio Triglycerides Serum , Qual Urine Color Urine Clarity Urine pH Ur Specific [place] Urine Protein Urine Glucose (UA) Urine Ketones Urine Occult Blood Urine Nitrite Urine Bilirubin Urine Urobilinogen Ur Leukocyte Esterase Urine RBC Urine WBC Ur Squamous Epith Cells Ur Transition Epith Cell Urine Bacteria Hyaline Casts Urine Mucus Urine Opiates Screen Urine Methadone Screen Ur Barbiturates Screen Ur Phencyclidine Scrn Ur Amphetamines Screen U Methamphetamin-MDMA U Benzodiazepines Scrn Urine Cocaine Screen U Cannabinoids Screen Ur Drug Screen Comment COVID-19 ([facility]) POC Glucose 265 H 276 H Microbiology 08/19/20 22:19 Urine Catheter - [place]oe Streptococcus pneumoniae Antigen (M - Final 08/19/20 22:19 Urine Catheter - [place] Legionella Antigen - Final 08/20/20 06:10 Sputum, Induced/[place] Gram Stain - Final 08/19/20 22:19 Urine, Clean Catch Urine Culture - Preliminary Culture exhibits no growth. Clinical Impression(s) from Imaging Studies Chest X-Ray 08/19/20 22:00 IMPRESSION: Pulmonary edema. at 2228 Reported and signed by: Caio Bruno MD Electronically Signed: Caio Bruno MD at 22:27 EDT Tel , Service support , Chest CT 08/19/20 23:19 IMPRESSION: No acute thoracic disease. Hepatomegaly. Individualized dose optimization techniques were used for this CT. at 0200 Reported and signed by: Caio Bruno MD Electronically Signed: Caio Bruno MD at 1:59 EDT Tel , Service support , Brain CT 08/19/20 23:31 IMPRESSION: Negative Brain CT without contrast. Individualized dose optimization techniques were used for this CT. at 0157 Reported and signed by: Caio Bruno MD Electronically Signed: Caio Bruno MD at 1:56 EDT Tel , Service support , Chest X-Ray 08/20/20 06:10 IMPRESSION: Ill-defined subpleural groundglass opacities are seen more prominent in the lung bases , may represent atypical pneumonia or viral pneumonia. NG tube is seen its tip is at the GE junction and can be advanced 10 cm. Electronically Signed: Patti Jensen, at 8:05 EDT Tel , Service support , ADDENDUM: 08/20/20 0821 IMPRESSION: Ill-defined subpleural groundglass opacities are seen more prominent in the lung bases , may represent atypical pneumonia or viral pneumonia. NG tube is seen its tip is at the GE junction and can be advanced 10 cm. N.B. : The above information has been verbally conveyed by Patti Jensen to [place] Dumont MD, on 08/20/2020 08:14:40 (ET). Electronically Signed: Patti Jensen, at 8:05 EDT Tel , Service support , Medical Necessity - Tobacco Use Smoking Status: Current every day smoker Assessment/Plan All Active Problems (Last Reviewed 08/20/20 @ 03:[address] Chris Gill MD) Opiate overdose (Resolved) Cellulitis of leg (Acute) KERRY (acute kidney injury) (Acute) Acute encephalopathy (Acute) Sepsis (Acute) CAP (community acquired pneumonia) (Acute) Respiratory failure with hypoxia (Acute) RECOMMENDATIONS: 1. Continue to wean FiO2 as tolerated. 2. Obtain repeat arterial blood gas. 3. Continue empiric antimicrobials, pending finalized infectious work-up. 4. Plan for paired spontaneous awakening and breathing trial tomorrow morning. 5. Continue tube feeds as tolerated. 6. Continue therapeutic Lovenox and start Pepcid via G-tube today. 7. Continue Lantus and continuous insulin infusion for now. 8. Continue gentle diuresis as tolerated by hemodynamics and renal function. IMPRESSIONS: 1. Acute on chronic combined respiratory failure Suspect that this is secondary to illicit opiate medication use coupled with alveolar hypoventilation secondary to obesity and poor outpatient compliance with the use of supplemental oxygen and noninvasive positive pressure ventilatory support. The patient does not have obstructive lung disease, based upon her last pulmonary function studies. She is currently on antimicrobials for possible left lower lobe pneumonia. I do not see any evidence of lower extremity cellulitis. For now, we will plan to continue current supportive measures. FiO2 will be weaned as tolerated, with plans for paired spontaneous awakening and breathing trials. The patient will be continued on antimicrobials, pending finalized infectious work-up. Given her issues with hyperglycemia, her IV steroids will be decreased to once daily. Will obtain repeat arterial blood gas to ensure adequacy of ventilatory support. Continue tube feeds as tolerated. Continue diuretic therapy as tolerated by hemodynamics and renal function. 2. Severe sepsis with concern for left lower lobe pneumonia We will plan to continue empiric antimicrobials, pending finalized infectious work-up. The patient remains hemodynamically stable. 3. Acute kidney injury Likely multifactorial in etiology and related to #1 coupled with possible vascular congestion. The patient's renal function is improving with gentle diuresis. This will be continued as tolerated by hemodynamics and renal function. Continue to monitor urine output accordingly. No current indication for renal replacement therapy. 4. Poorly controlled diabetes mellitus Continue Lantus and continuous insulin infusion for now. Her requirements are still quite high. We will plan to decrease her IV steroid dose in hopes that this will improve her glycemic state. If improved, she can be transitioned to an increased basal dose of Lantus and high intensity sliding scale tomorrow. 5. Encephalopathy Likely secondary to hypercapnia in the setting of opiate pain medication use coupled with alveolar hypoventilation from obesity. Plan to continue current supportive measures as noted above. 6. Super morbid obesity/tobacco dependency/obstructive sleep apnea with Pap noncompliance/history of PE Complicates care, management, recovery and prognosis. Physical therapy to evaluate the patient. Continue tube feeds as tolerated. BiPAP therapy will be restarted once the patient is able to be successfully extubated. TIME: 38 minutes of critical care time, independent of procedures, was spent addressing the patient's acute on chronic combined respiratory failure, severe sepsis, acute kidney injury, poorly controlled diabetes mellitus, encephalopathy, review of all data and collaboration with the care team. ([id number]) [id number]: [id number] Critical care first hour
[2020-08-21 06:31] LABS: Bedside Glucose 249 mg/dL (70-110)
--- NOTE | 2020-08-21 07:16 | PN_ITS ---
Subjective: Patient remains afebrile, vital signs stable, continued on mechanical ventilation assist control at 45%, no acute issues overnight per discussion with nursing staff, able to follow some commands with lessened sedation. Patient currently more sedate, not following commands, no obvious evidence of fevers, chills, nausea, emesis, abdominal pain, chest pain or worsened dyspnea. Objective: Physical Examination: General: Patient currently more sedate, not awakening to stimuli, not alert, unable to answer orientation questions, seated upright in the ICU bed, no current distress, intubated. Skin: normal color, turgor, no icterus, cyanosis except bilateral lower extremity chronic venous stasis skin changes, no obvious evidence of cellulitic changes currently, improved. HEENT: AT/NC, EOM full to be assessed given current state status, PERRLA, mildly dry MM, intubated, extremely sick and neck. Lungs: Intubated, sedated, symmetric rise, coarse, rhonchorous bilaterally, no obvious wheezing currently, diminished bases. Heart: Tachycardic with regular rhythm; no gallop, rub audible. Abdomen: soft, morbidly obese, no obvious evidence of TTP, appears distended but difficult assessment given habitus, distant normal bowel sounds. Extremities: no cyanosis, clubbing, mild bilateral hand edema, no obvious pitting edema in his lower extremities, see skin. Neurological: distress, intubated; cognitive function baseline intact; pupils equally reactive to light and accomodation; cranial nerves unable to be assessed well given sedation, not moving to stimuli currently, strength severely will decrease secondary to acute presentation, sedated status. Psychiatric: affect appears flat, sedate, no acute evidence of depressive or anxiety feelings. Vitals/I&O's: Vital Signs Temp Pulse Resp BP Pulse Ox 99.3 F H 77 14 129/64 H 97 08/21/20 07:00 08/21/20 07:00 08/21/20 07:00 08/21/20 07:00 08/21/20 07:00 Oxygen Flow Rate (L/min) 6 Oxygen Delivery Method Mechanical Ventilator Weight: 370 lb 2.498 oz Body Mass Index (BMI) 62.1 Finger Stick Blood Glucose 249 Intake and Output for Last 24 Hours 08/19/20 08/20/20 08/21/20 23:59 23:59 23:59 Intake Total 2865.05 / 3110.20 985.59 / 985.59 Output Total 2550 / 2775 905 / 905 Balance 315.05 / 335.20 80.59 / 80.59 Microbiology Past 72 Hours 08/19/20 22:19 Urine Catheter - Choe Streptococcus pneumoniae Antigen (M - Final 08/19/20 22:19 Urine Catheter - Choe Legionella Antigen - Final 08/20/20 06:10 Sputum, Induced/Lukens Gram Stain - Final 08/19/20 22:19 Urine, Clean Catch Urine Culture - Preliminary Culture exhibits no growth. Laboratory Results 08/20/20 02:20: Total Creatine Kinase 98, Triglycerides 170 08/20/20 02:20: Hemoglobin A1c 11.2 H 08/20/20 06:54: POC Glucose > 500 H* 08/20/20 07:19: Specimen Type ART, Sample Site R Brach, pH 7.20 L, Bicarbonate Actual 26.1 H, Total CO2 28, Base Excess -2, O2 Saturation 85 L, O2 % 50, ABG pCO2 67.0 H, ABG pO2 62 L, Respiration Rate 14.0000, O2 Delivery Device Adult Vent, Vent Mode AC, Tidal Volume 450 08/20/20 08:02: POC Glucose 495 H* 08/20/20 09:55: POC Glucose 493 H* 08/20/20 12:28: POC Glucose 381 H 08/20/20 13:33: POC Glucose 351 H 08/20/20 14:35: Sodium 134 L, Potassium 4.8, Chloride 100, Carbon Dioxide 27.0, Anion Gap 7, BUN 62 H, Creatinine 1.75 H, Estim Creat Clear Calc 37.30, Est GFR (MDRD) Af Amer 41 L, Est GFR (MDRD) Non-Af 34 L, BUN/Creatinine Ratio 35.4 H, Glucose 353 H, Calcium 8.6 08/20/20 14:38: POC Glucose 320 H 08/20/20 15:33: POC Glucose 336 H 08/20/20 16:42: POC Glucose 332 H 08/20/20 17:35: POC Glucose 314 H 08/20/20 18:29: POC Glucose 293 H 08/20/20 19:26: POC Glucose 239 H 08/20/20 20:34: POC Glucose 283 H 08/20/20 21:45: POC Glucose 261 H 08/20/20 22:00: Sodium 136, Potassium 4.6, Chloride 102, Carbon Dioxide 29.0, Anion Gap 5, BUN 58 H, Creatinine 1.24 H, Estim Creat Clear Calc 52.64, Est GFR (MDRD) Af Amer 61, Est GFR (MDRD) Non-Af 50 L, BUN/Creatinine Ratio 46.8 H, Glucose 283 H, Calcium 8.7 08/20/20 22:26: POC Glucose 291 H 08/20/20 23:27: POC Glucose 259 H 08/21/20 00:27: POC Glucose 242 H 08/21/20 01:31: POC Glucose 222 H 08/21/20 02:38: POC Glucose 239 H 08/21/20 03:31: POC Glucose 242 H 08/21/20 04:30: POC Glucose 265 H 08/21/20 05:25: POC Glucose 276 H 08/21/20 06:28: POC Glucose 249 H Current Medications Acetaminophen (Tylenol) 650 mg PO Q6H PRN PRN PRN Reason: Pain Score 1-10/Temp > 100.7 F Albuterol Sulfate (Ventolin Aerosols) 2.5 mg INHALATION Q2H PRN PRN PRN Reason: SOB/Wheezing Albuterol/Ipratropium (Duoneb) 3 ml INHALATION Q4H.RT [facility] Last Admin: 08/21/20 06:57 Dose: 3 ml Documented by: Chlorhexidine Gluconate () 15 ml PO BID [facility] Last Admin: 08/20/20 21:15 Dose: 15 ml Documented by: Dextrose (D50w Syringe) 0 gm IV X1 PRN; Protocol PRN Reason: Hypoglycemia Dextrose (D50w Syringe) 0 gm IV X1 PRN; Protocol PRN Reason: Hypoglycemia Protocol Enoxaparin Sodium (Lovenox) 170 mg SC Q12 [facility] Last Admin: 08/20/20 22:10 Dose: 170 mg Documented by: Famotidine (Pepcid) 20 mg GT BID KIAN Furosemide (Lasix) 40 mg IV BID@1000,1800 [facility] Last Admin: 08/20/20 17:53 Dose: 40 mg Documented by: Glucagon () 1 mg IM .X1 PRN PRN Reason: Hypoglycemia Azithromycin 500 mg/ Dextrose 255 mls @ 250 mls/hr IV Q24@2200 [facility] Stop: 08/22/20 23:02 Last Infusion: 08/20/20 22:17 Dose: Infused Documented by: Sodium Chloride () 250 mls @ 15 mls/hr IV .[id number] PRN PRN Reason: Additional IVPB Infusion Last Infusion: 08/21/20 07:00 Dose: 15 mls/hr Documented by: Propofol (Diprivan) 1,000 mg in 100 mls @ 10.074 mls/hr CONT INF .Q9H56M [facility]; Protocol Last Titration: 08/21/20 07:00 Dose: 35 mcg/kg/min, 35.3 mls/hr Documented by: Fentanyl Citrate 1,000 mcg/ (Sodium Chloride) 100 mls @ 2.5 mls/hr CONT INF .Q40H [facility]; Protocol Last Titration: 08/21/20 07:00 Dose: 150 mcg/hr, 15 mls/hr Documented by: Ceftriaxone Sodium 2 gm/ (Sodium Chloride) 50 mls @ 100 mls/hr IV Q24 [facility] Last Infusion: 08/20/20 11:39 Dose: Infused Documented by: Insulin Human Lispro 100 unit/ (Sodium Chloride) 100 mls @ 16.93 mls/hr IV .Q5H55M [facility]; Protocol Last Infusion: 08/21/20 06:30 Dose: 15.5 mls/hr Documented by: Enteral Nutritional Formula (Vital High Protein) 1,000 mls @ 60 mls/hr GT .[id number] [facility] Last Admin: 08/21/20 04:41 Dose: Not Given Documented by: Insulin Glargine (Lantus (Bkc)) 60 units SC BID [facility] Last Admin: 08/20/20 22:09 Dose: 60 units Documented by: Labetalol HCl (Trandate) 10 mg IV Q6H PRN PRN PRN Reason: SBP > 160 OR DBP > 120 Methylprednisolone (Solu-Medrol) 40 mg IV Q8 [facility] Last Admin: 08/21/20 05:18 Dose: 40 mg Documented by: Naloxone HCl (Narcan) 0.02 mg IV Q1M PRN PRN Reason: RR <10 and pt unresponsive Ondansetron HCl (Zofran) 4 mg IV Q8H PRN PRN PRN Reason: NAUSEA/VOMITING Last Admin: 09/20/20 03:53 Dose: 4 mg Documented by: Sodium Chloride () 10 - 40 ml IV UD PRN PRN Reason: SALINE FLUSH Last Admin: 08/21/20 03:06 Dose: 20 ml Documented by: STROKE Vital Signs/Narrative: Vital Signs Temp Pulse Resp BP Pulse Ox 08/21/20 07:00 99.3 F H 77 14 129/64 H 97 08/21/20 06:00 99.4 F H 89 18 129/62 H 94 08/21/20 05:00 99.1 F 95 18 130/62 H 94 08/21/20 04:00 99.1 F 85 14 116/56 L 93 08/21/20 03:46 82 08/21/20 03:35 82 14 08/21/20 03:30 87 14 93 Medical Necessity - Tobacco Use Smoking Status: Current every day smoker Assessment/Plan All Active Problems (Last Reviewed 08/20/20 @ 03:[address] Chris Gill MD) Opiate overdose (Resolved) Cellulitis of leg (Acute) KERRY (acute kidney injury) (Acute) Acute encephalopathy (Acute) Sepsis (Acute) CAP (community acquired pneumonia) (Acute) Respiratory failure with hypoxia (Acute) The patient is a 45 y/o F w/ PMHx: Diabetes mellitus type II with neuropathy, Morbid Obesity, Anxiety and Depression, Hx NSTEMI, CAD, HTN, HLD, Chronic Hypoxic Respiratory Failure (6L NC), Hx PE, Tobacco use, LOGAN, GERD, Chronic COPD who presents to the [facility] ED on 08/19/20 with history of unresponsiveness and hypoxia. 1. Acute Severe Sepsis secondary to Acute on Chronic Hypoxic and Hypercarbic Respiratory Failure, Multifactorial, Narcotic Overdose, Hypoventilation Syndrome, Worsening Pulmonary HTN, Acute on Chronic COPD Exacerbation, Possible Volume Overload, Possible LLL CAP and Possible LLE Cellulitis: ED presentation with CBC with WC 14.2, hemoglobin 1.7, platelet 259 with left shift, ABG at that time with pH 7.17, bicarb 20.3, O2 saturation 91, PCO2 78, PO2 80 with placement on BiPAP at that time and eventual intubation following transition to the ICU, CMP with sodium 132, chloride 97, BUN/creatinine 49/2.12, glucose 338, troponin less than 0.015, BNP 38, urine drug screen with positive opiates, CXR upon presentation with concern for possible pulmonary edema with follow-up CT chest with no acute thoracic disease, evidence hepatomegaly, some interstitial edema and pulmonary venous congestion with atelectasis but not severe appearing. Patient admitted to the ICU, intubated following admission, will maintain intubation/sedation with wean as able, continue ATC duonebs, PRN albuterol, continue IV solumedrol, maintain on IV Rocephin and Azithromycin, maintained on tube feeds with nutrition consultation, IV lasix for concern for possible volume overload, HOB, IS parameters w/ pending sputum cultures, negative urine antigens, negative COVID testing. Recreation Therapy Aide consulted and following. Bld cx x 2 obtained in the ED. Patient urine drug screen as noted with positive opiates, unclear exposure, will investigate further with possible case management consultation for substance abuse. 2. Acute Encephalopathy secondary to #1: Patient with several etiologies for encephalopathy including carbon oxide narcosis, morbid obesity, hyperglycemia, acute kidney injury, acute COPD exacerbation and questionable pneumonia, continue treatments as noted, currently sedated, intubated. 3. Acute kidney injury: Secondary to acute presentation as noted #1, #2. Admission BUN/Cr 49/2.12, prior baseline creatinine noted to be 0.7-0.9. Given patient volume overload and congestion currently being diuresed, trending renal function, proving, 08/20/2020 BUN/creatinine 58/1.24. 4. Hyperosmolar nonketotic state secondary to uncontrolled insulin-dependent diabetes mellitus type II: Admission blood sugar significantly elevated especially with usage of steroid therapies, hemoglobin A1c 11.2, maintained on insulin drip secondary to significant hyperglycemia with initiation of tube feeds, discuss potential transition to SC insulin therapy with overlapping every 6 hours Accu-Cheks and insulin sliding scale with leveler. Patient at home normally on insulin glargine 70 units subcu twice daily and scheduled aspart 38 units 3 times daily. Nutrition consulted and following. 5. Hypertension: Patient normally on diltiazem, hydrochlorothiazide, lisinopril, currently held with low normal blood pressures likely secondary to #1, in addition to scheduled IV Lasix usage, PRN IV hydralazine. Add back oral regimen once appropriate. 6. Hyperlipidemia: Continue home statin regimen. 7. GERD: Maintained on famotidine. 8. History of pulmonary embolism: Holding home Eliquis therapy, maintained on therapeutic Lovenox. 9. Morbid Obesity: Weight loss and lifestyle changes encouraged, nutrition consulted. 10. Tobacco Abuse: Encouraged cessation, inpatient consultation per RT, NR if desired. 11. LOGAN: Noncompliant with CPAP, will encourage usage once appropriate. 12. DVT prophylaxis: SCDs, continue therapeutic Lovenox. Inpatient E&M: [id number] Subs Hosp L3
[2020-08-21 08:06] LABS: Bedside Glucose 236 mg/dL (70-110)
[2020-08-21 09:06] LABS: Bedside Glucose 209 mg/dL (70-110)
[2020-08-21 09:30] LABS: Base Excess 5 mmol/L (-2 to +2); Bicarbonate 29.9 mmol/L (22-26); Blood Gas Specimen Type ART; FI02 45; Mode AC; O2 Delivery Device ET Tube; PO2 70 mmHG (75-100); SITE R Brach; SO2 93 % (95-99); Total Carbon Dioxide 32 mmol/L; Vt 500; pCO2 52.3 mmHg (35-45); pH 7.37 (7.35-7.45)
[2020-08-21] MEDS: Chlorhexidine 15 ML PO ×2 (09:53→20:18)
[2020-08-21] MEDS: Famotidine 20 MG Tablet GT ×2 (10:02→20:19)
[2020-08-21] MEDS: Furosemide 40 MG/4 ML Vial IV ×2 (10:02→17:00)
[2020-08-21] MEDS: Enoxaparin 100 MG/ML Syringe 170 MG SC ×2 (10:03→20:18)
[2020-08-21 10:11] LABS: Bedside Glucose 201 mg/dL (70-110)
[2020-08-21 11:10] LABS: Bedside Glucose 219 mg/dL (70-110)
[2020-08-21 12:05] LABS: Bedside Glucose 221 mg/dL (70-110)
[2020-08-21] MEDS: Propofol 10MG/Ml 1,000 MG/100 ML Bottle 30.2 MG CONT INF (12:39)
[2020-08-21 13:11] LABS: Bedside Glucose 213 mg/dL (70-110)
[2020-08-21 15:16] LABS: Bedside Glucose 202 mg/dL (70-110)
[2020-08-21 15:16] LABS: Bedside Glucose 198 mg/dL (70-110)
[2020-08-21] MEDS: Propofol 10MG/Ml 1,000 MG/100 ML Bottle 40.3 MG CONT INF ×2 (15:40→17:48)
[2020-08-21 15:59] LABS: BUN 56 mg/dL (7-18); Glucose 183 mg/dL (74-106)
[2020-08-21 16:00] LABS: Anion Gap 5 (5-15); BUN/Creat Ratio 56.6 RATIO (10-20); Calcium,Total 9.1 mg/dL (8.5-10.1); Chloride 102 mmol/L (98-107); Creatinine, Serum 0.99 mg/dL (0.55-1.02); EST Glomerular Filtration Rate 65 mL/min (>60); Est Glom Filt Rate - Afr Amer 79 mL/min (>60); Estimated Creatinine Clearance 65.93 ml/min; Sodium Level 137 mmol/L (136-145)
[2020-08-21 16:01] LABS: Bedside Glucose 185 mg/dL (70-110)
[2020-08-21 16:27] LABS: Magnesium 1.9 mg/dL (1.6-2.6); Potassium 5.3 mmol/L (3.5-5.1)
[2020-08-21 16:55] LABS: Bedside Glucose 167 mg/dL (70-110)
[2020-08-21 16:56] LABS: Hematocrit 39.1 % (37-47); Hemoglobin 12.2 g/dL (12.0-15.0); Mean Corp Hgb Conc 31.2 g/dL (32-36); Mean Corpuscular Hgb 28.4 pg (27.0-32.0); Mean Corpuscular Volume 91.1 fL (81-99); Mean Platelet Vol. 10.5 fl (6.2-12.0); Platelet Count 311 K/mm3 (150-450); RBC Distribution Width CV 16.2 % (11.6-14.6); RBC Distribution Width SD 53.9 fl (35.1-43.9); Red Blood Count 4.29 M/mm3 (4.2-5.4); White Blood Count 13.6 K/mm3 (4.4-11.0)
[2020-08-21] MEDS: Vital High Protein 1,000 ML 60 ML GT (16:56)
[2020-08-21 18:06] LABS: Bedside Glucose 148 mg/dL (70-110)
[2020-08-21 19:16] LABS: Bedside Glucose 134 mg/dL (70-110)
[2020-08-21] MEDS: Propofol 10MG/Ml 1,000 MG/100 ML Bottle 50.4 MG CONT INF ×2 (20:33→22:17)
[2020-08-21 22:05] LABS: Bedside Glucose 165 mg/dL (70-110)
[2020-08-21 22:05] LABS: Bedside Glucose 174 mg/dL (70-110)
[2020-08-22] VITALS (42 sets, daily range): BP systolic 107–203; BP diastolic 44–111; PULSE 61–108; RESP 14–27; TEMP 37.2–38.3; O2SAT 91–98
[2020-08-22] MEDS: Propofol 10MG/Ml 1,000 MG/100 ML Bottle 50.4 MG CONT INF ×3 (00:05→03:56)
[2020-08-22 00:11] LABS: Bedside Glucose 184 mg/dL (70-110)
[2020-08-22 00:11] LABS: Bedside Glucose 194 mg/dL (70-110)
[2020-08-22 00:11] LABS: Bedside Glucose 172 mg/dL (70-110)
[2020-08-22 04:08] LABS: Bedside Glucose 177 mg/dL (70-110)
[2020-08-22 04:40] LABS: Absolute Neutrophil Count 7.6 X10^3/uL (2.0-7.7); Basophil# 0.05 X10^3/uL; Basophil% 0.4 % (0-1); Eosinophil# 0.01 X10^3/uL; Eosinophils% 0.1 % (0-5); Hematocrit 37.7 % (37-47); Hemoglobin 11.8 g/dL (12.0-15.0); Lymphocyte % 27.3 % (19-41); Mean Corp Hgb Conc 31.3 g/dL (32-36); Mean Corpuscular Hgb 28.7 pg (27.0-32.0); Mean Corpuscular Volume 91.7 fL (81-99); Mean Platelet Vol. 9.9 fl (6.2-12.0); Monocyte% 6.8 % (0-10); NRBC Flagged by Analyzer 0 % (0-5); Neutrophil # 7.59 X10^3/uL (2.7-7.7); Neutrophil % 64.6 % (47-70); Platelet Count 266 K/mm3 (150-450); RBC Distribution Width CV 16.2 % (11.6-14.6); RBC Distribution Width SD 54.8 fl (35.1-43.9); Red Blood Count 4.11 M/mm3 (4.2-5.4); White Blood Count 11.7 K/mm3 (4.4-11.0)
[2020-08-22] MEDS: 0.9% Saline Lock 10 ML Syringe IV ×3 (04:47→19:50)
[2020-08-22 05:01] LABS: Bedside Glucose 145 mg/dL (70-110)
[2020-08-22 05:01] LABS: Bedside Glucose 142 mg/dL (70-110)
[2020-08-22 05:21] LABS: ALB/GLOB Ratio 0.6 RATIO (0.9-2.4); AST(SGOT) 19 U/L (15-37); Alanine Aminotransfer ALT/SGPT 14 U/L (13-56); Albumin, Serum 2.6 g/dL (3.2-5.0); Alkaline Phosphatase 59 U/L (45-117); Anion Gap 6 (5-15); BUN 53 mg/dL (7-18); BUN/Creat Ratio 66.4 RATIO (10-20); Calcium,Total 8.8 mg/dL (8.5-10.1); Chloride 101 mmol/L (98-107); EST Glomerular Filtration Rate 83 mL/min (>60); Est Glom Filt Rate - Afr Amer 101 mL/min (>60); Estimated Creatinine Clearance 81.59 ml/min; Globulin 4.3 g/dL (2.2-4.2); Glucose 149 mg/dL (74-106); Potassium 3.8 mmol/L (3.5-5.1); Protein, Total 6.9 g/dL (6.4-8.2); Sodium Level 140 mmol/L (136-145)
[2020-08-22] MEDS: TITRATION PARAMETER CHANGE 1 EACH IV (05:56)
[2020-08-22] MEDS: Propofol 10MG/Ml 1,000 MG/100 ML Bottle 49.7 MG CONT INF (06:00)
--- NOTE | 2020-08-22 06:27 | PN_ITS ---
Subjective: The patient was seen and examined at the bedside this morning. Events from the last 24 hours have been reviewed. The patient is currently afebrile, hemodynamically stable and maintaining appropriate oxygen saturations on assist control mode of mechanical ventilation with an FiO2 requirement of 30%. The patient failed her SBT this morning due to tachycardia and tachypnea. Per nursing report, the patient has had significant oral secretions as well. The patient remains sedated on both propofol and fentanyl. She is currently tolerating tube feeds. Objective: The patient's most recent lab work, culture data and imaging studies have all been personally reviewed. Strep and urine Legionella antigens were negative. Coronavirus PCR was negative. Blood, urine and sputum cultures are pending. General: - - Remains intubated, sedated and mechanically ventilated. No ventilator dyssynchrony noted. HEENT: Atraumatic, PERRLA, Normocephalic Oral: Moist Mucosa, No Gingival or Mucosal Lesions/ Ulcerations, - - Stable endotracheal and OG tubes. Neck: Supple, No Nodes, Trachea Midline Lungs: Diminished, Rhonchi, Wheezes - L>R Cardiovascular: Regular rate, Regular Rhythm Abdomen: Bowel Sounds Present, Soft, Non Tender, Obese Extremities: No clubbing, No cyanosis Skin: - - Chronic lower extremity venous stasis dermatitis Musculoskeletal: No Muscle Wasting Lymphatic: No Cervical, Supraclavicular, or Inguinal Adenopathy Neurological: - - No focal neurological deficits. Currently sedated with a RASS of -1. Vital Signs Temp Pulse Resp BP Pulse Ox 99.2 F H 89 19 H 142/80 H 91 08/22/20 06:00 08/22/20 06:00 08/22/20 06:00 08/22/20 06:00 08/22/20 06:00 Oxygen Flow Rate (L/min) 6 Oxygen Delivery Method Mechanical Ventilator Weight: 365 lb 1.368 oz Body Mass Index (BMI) 62.1 Finger Stick Blood Glucose 147 Intake and Output for Last 24 Hours 08/20/20 08/21/20 08/22/20 23:59 23:59 23:59 Intake Total 2865.05 / 3110.20 3582.90 / 3803.30 1454.70 / 1454.70 Output Total 2550 / 2775 3940 / 4215 1350 / 1350 Balance 315.05 / 335.20 -357.10 / -411.70 104.70 / 104.70 Labs (Last 48 Hours) 08/20/20 08/20/20 08/20/20 02:20 02:20 06:54 WBC RBC Hgb Hct MCV MCH MCHC RDW Std Deviation RDW Coeff of Darrion Plt Count MPV Immature Gran % (Auto) Neut % (Auto) Lymph % (Auto) [place] % (Auto) Eos % (Auto) Baso % (Auto) Absolute Neuts (auto) Absolute Lymphs (auto) Nucleated RBC % Specimen Type Sample Site pH Bicarbonate Actual Total CO2 Base Excess O2 Saturation O2 % ABG pCO2 ABG pO2 Respiration Rate O2 Delivery Device Vent Mode Tidal Volume Sodium Potassium Chloride Carbon Dioxide Anion Gap BUN Creatinine Estim Creat Clear Calc Est GFR (MDRD) Af Amer Est GFR (MDRD) Non-Af BUN/Creatinine Ratio Glucose Hemoglobin A1c 11.2 H Calcium Phosphorus Magnesium Total Bilirubin AST ALT Alkaline Phosphatase Total Creatine Kinase 98 Total Protein Albumin Globulin Albumin/Globulin Ratio Triglycerides 170 POC Glucose > 500 H* 08/20/20 08/20/20 08/20/20 07:19 08:02 09:55 WBC RBC Hgb Hct MCV MCH MCHC RDW Std Deviation RDW Coeff of Darrion Plt Count MPV Immature Gran % (Auto) Neut % (Auto) Lymph % (Auto) [place] % (Auto) Eos % (Auto) Baso % (Auto) Absolute Neuts (auto) Absolute Lymphs (auto) Nucleated RBC % Specimen Type ART Sample Site R Brach pH 7.20 L Bicarbonate Actual 26.1 H Total CO2 28 Base Excess -2 O2 Saturation 85 L O2 % 50 ABG pCO2 67.0 H ABG pO2 62 L Respiration Rate 14.0000 O2 Delivery Device Adult Vent Vent Mode AC Tidal Volume 450 Sodium Potassium Chloride Carbon Dioxide Anion Gap BUN Creatinine Estim Creat Clear Calc Est GFR (MDRD) Af Amer Est GFR (MDRD) Non-Af BUN/Creatinine Ratio Glucose Hemoglobin A1c Calcium Phosphorus Magnesium Total Bilirubin AST ALT Alkaline Phosphatase Total Creatine Kinase Total Protein Albumin Globulin Albumin/Globulin Ratio Triglycerides POC Glucose 495 H* 493 H* 08/20/20 08/20/20 08/20/20 12:28 13:33 14:35 WBC RBC Hgb Hct MCV MCH MCHC RDW Std Deviation RDW Coeff of Darrion Plt Count MPV Immature Gran % (Auto) Neut % (Auto) Lymph % (Auto) [place] % (Auto) Eos % (Auto) Baso % (Auto) Absolute Neuts (auto) Absolute Lymphs (auto) Nucleated RBC % Specimen Type Sample Site pH Bicarbonate Actual Total CO2 Base Excess O2 Saturation O2 % ABG pCO2 ABG pO2 Respiration Rate O2 Delivery Device Vent Mode Tidal Volume Sodium 134 L Potassium 4.8 Chloride 100 Carbon Dioxide 27.0 Anion Gap 7 BUN 62 H Creatinine 1.75 H Estim Creat Clear Calc 37.30 Est GFR (MDRD) Af Amer 41 L Est GFR (MDRD) Non-Af 34 L BUN/Creatinine Ratio 35.4 H Glucose 353 H Hemoglobin A1c Calcium 8.6 Phosphorus Magnesium Total Bilirubin AST ALT Alkaline Phosphatase Total Creatine Kinase Total Protein Albumin Globulin Albumin/Globulin Ratio Triglycerides POC Glucose 381 H 351 H 08/20/20 08/20/20 08/20/20 14:38 15:33 16:42 WBC RBC Hgb Hct MCV MCH MCHC RDW Std Deviation RDW Coeff of Darrion Plt Count MPV Immature Gran % (Auto) Neut % (Auto) Lymph % (Auto) [place] % (Auto) Eos % (Auto) Baso % (Auto) Absolute Neuts (auto) Absolute Lymphs (auto) Nucleated RBC % Specimen Type Sample Site pH Bicarbonate Actual Total CO2 Base Excess O2 Saturation O2 % ABG pCO2 ABG pO2 Respiration Rate O2 Delivery Device Vent Mode Tidal Volume Sodium Potassium Chloride Carbon Dioxide Anion Gap BUN Creatinine Estim Creat Clear Calc Est GFR (MDRD) Af Amer Est GFR (MDRD) Non-Af BUN/Creatinine Ratio Glucose Hemoglobin A1c Calcium Phosphorus Magnesium Total Bilirubin AST ALT Alkaline Phosphatase Total Creatine Kinase Total Protein Albumin Globulin Albumin/Globulin Ratio Triglycerides POC Glucose 320 H 336 H 332 H 08/20/20 08/20/20 08/20/20 17:35 18:29 19:26 WBC RBC Hgb Hct MCV MCH MCHC RDW Std Deviation RDW Coeff of Darrion Plt Count MPV Immature Gran % (Auto) Neut % (Auto) Lymph % (Auto) [place] % (Auto) Eos % (Auto) Baso % (Auto) Absolute Neuts (auto) Absolute Lymphs (auto) Nucleated RBC % Specimen Type Sample Site pH Bicarbonate Actual Total CO2 Base Excess O2 Saturation O2 % ABG pCO2 ABG pO2 Respiration Rate O2 Delivery Device Vent Mode Tidal Volume Sodium Potassium Chloride Carbon Dioxide Anion Gap BUN Creatinine Estim Creat Clear Calc Est GFR (MDRD) Af Amer Est GFR (MDRD) Non-Af BUN/Creatinine Ratio Glucose Hemoglobin A1c Calcium Phosphorus Magnesium Total Bilirubin AST ALT Alkaline Phosphatase Total Creatine Kinase Total Protein Albumin Globulin Albumin/Globulin Ratio Triglycerides POC Glucose 314 H 293 H 239 H 08/20/20 08/20/20 08/20/20 20:34 21:45 22:00 WBC RBC Hgb Hct MCV MCH MCHC RDW Std Deviation RDW Coeff of Darrion Plt Count MPV Immature Gran % (Auto) Neut % (Auto) Lymph % (Auto) [place] % (Auto) Eos % (Auto) Baso % (Auto) Absolute Neuts (auto) Absolute Lymphs (auto) Nucleated RBC % Specimen Type Sample Site pH Bicarbonate Actual Total CO2 Base Excess O2 Saturation O2 % ABG pCO2 ABG pO2 Respiration Rate O2 Delivery Device Vent Mode Tidal Volume Sodium 136 Potassium 4.6 Chloride 102 Carbon Dioxide 29.0 Anion Gap 5 BUN 58 H Creatinine 1.24 H Estim Creat Clear Calc 52.64 Est GFR (MDRD) Af Amer 61 Est GFR (MDRD) Non-Af 50 L BUN/Creatinine Ratio 46.8 H Glucose 283 H Hemoglobin A1c Calcium 8.7 Phosphorus Magnesium Total Bilirubin AST ALT Alkaline Phosphatase Total Creatine Kinase Total Protein Albumin Globulin Albumin/Globulin Ratio Triglycerides POC Glucose 283 H 261 H 08/20/20 08/20/20 08/21/20 22:26 23:27 00:27 WBC RBC Hgb Hct MCV MCH MCHC RDW Std Deviation RDW Coeff of Darrion Plt Count MPV Immature Gran % (Auto) Neut % (Auto) Lymph % (Auto) [place] % (Auto) Eos % (Auto) Baso % (Auto) Absolute Neuts (auto) Absolute Lymphs (auto) Nucleated RBC % Specimen Type Sample Site pH Bicarbonate Actual Total CO2 Base Excess O2 Saturation O2 % ABG pCO2 ABG pO2 Respiration Rate O2 Delivery Device Vent Mode Tidal Volume Sodium Potassium Chloride Carbon Dioxide Anion Gap BUN Creatinine Estim Creat Clear Calc Est GFR (MDRD) Af Amer Est GFR (MDRD) Non-Af BUN/Creatinine Ratio Glucose Hemoglobin A1c Calcium Phosphorus Magnesium Total Bilirubin AST ALT Alkaline Phosphatase Total Creatine Kinase Total Protein Albumin Globulin Albumin/Globulin Ratio Triglycerides POC Glucose 291 H 259 H 242 H 08/21/20 08/21/20 08/21/20 01:31 02:38 03:31 WBC RBC Hgb Hct MCV MCH MCHC RDW Std Deviation RDW Coeff of Darrion Plt Count MPV Immature Gran % (Auto) Neut % (Auto) Lymph % (Auto) [place] % (Auto) Eos % (Auto) Baso % (Auto) Absolute Neuts (auto) Absolute Lymphs (auto) Nucleated RBC % Specimen Type Sample Site pH Bicarbonate Actual Total CO2 Base Excess O2 Saturation O2 % ABG pCO2 ABG pO2 Respiration Rate O2 Delivery Device Vent Mode Tidal Volume Sodium Potassium Chloride Carbon Dioxide Anion Gap BUN Creatinine Estim Creat Clear Calc Est GFR (MDRD) Af Amer Est GFR (MDRD) Non-Af BUN/Creatinine Ratio Glucose Hemoglobin A1c Calcium Phosphorus Magnesium Total Bilirubin AST ALT Alkaline Phosphatase Total Creatine Kinase Total Protein Albumin Globulin Albumin/Globulin Ratio Triglycerides POC Glucose 222 H 239 H 242 H 08/21/20 08/21/20 08/21/20 04:30 05:25 06:28 WBC RBC Hgb Hct MCV MCH MCHC RDW Std Deviation RDW Coeff of Darrion Plt Count MPV Immature Gran % (Auto) Neut % (Auto) Lymph % (Auto) [place] % (Auto) Eos % (Auto) Baso % (Auto) Absolute Neuts (auto) Absolute Lymphs (auto) Nucleated RBC % Specimen Type Sample Site pH Bicarbonate Actual Total CO2 Base Excess O2 Saturation O2 % ABG pCO2 ABG pO2 Respiration Rate O2 Delivery Device Vent Mode Tidal Volume Sodium Potassium Chloride Carbon Dioxide Anion Gap BUN Creatinine Estim Creat Clear Calc Est GFR (MDRD) Af Amer Est GFR (MDRD) Non-Af BUN/Creatinine Ratio Glucose Hemoglobin A1c Calcium Phosphorus Magnesium Total Bilirubin AST ALT Alkaline Phosphatase Total Creatine Kinase Total Protein Albumin Globulin Albumin/Globulin Ratio Triglycerides POC Glucose 265 H 276 H 249 H 08/21/20 08/21/20 08/21/20 07:53 08:59 09:26 WBC RBC Hgb Hct MCV MCH MCHC RDW Std Deviation RDW Coeff of Darrion Plt Count MPV Immature Gran % (Auto) Neut % (Auto) Lymph % (Auto) [place] % (Auto) Eos % (Auto) Baso % (Auto) Absolute Neuts (auto) Absolute Lymphs (auto) Nucleated RBC % Specimen Type ART Sample Site R Brach pH 7.37 Bicarbonate Actual 29.9 H Total CO2 32 Base Excess 5 H O2 Saturation 93 L O2 % 45 ABG pCO2 52.3 H ABG pO2 70 L Respiration Rate 14.0000 O2 Delivery Device ET Tube Vent Mode AC Tidal Volume 500 Sodium Potassium Chloride Carbon Dioxide Anion Gap BUN Creatinine Estim Creat Clear Calc Est GFR (MDRD) Af Amer Est GFR (MDRD) Non-Af BUN/Creatinine Ratio Glucose Hemoglobin A1c Calcium Phosphorus Magnesium Total Bilirubin AST ALT Alkaline Phosphatase Total Creatine Kinase Total Protein Albumin Globulin Albumin/Globulin Ratio Triglycerides POC Glucose 236 H 209 H 08/21/20 08/21/20 08/21/20 10:00 11:07 12:00 WBC RBC Hgb Hct MCV MCH MCHC RDW Std Deviation RDW Coeff of Darrion Plt Count MPV Immature Gran % (Auto) Neut % (Auto) Lymph % (Auto) [place] % (Auto) Eos % (Auto) Baso % (Auto) Absolute Neuts (auto) Absolute Lymphs (auto) Nucleated RBC % Specimen Type Sample Site pH Bicarbonate Actual Total CO2 Base Excess O2 Saturation O2 % ABG pCO2 ABG pO2 Respiration Rate O2 Delivery Device Vent Mode Tidal Volume Sodium Potassium Chloride Carbon Dioxide Anion Gap BUN Creatinine Estim Creat Clear Calc Est GFR (MDRD) Af Amer Est GFR (MDRD) Non-Af BUN/Creatinine Ratio Glucose Hemoglobin A1c Calcium Phosphorus Magnesium Total Bilirubin AST ALT Alkaline Phosphatase Total Creatine Kinase Total Protein Albumin Globulin Albumin/Globulin Ratio Triglycerides POC Glucose 201 H 219 H 221 H 08/21/20 08/21/20 08/21/20 13:03 13:58 15:06 WBC RBC Hgb Hct MCV MCH MCHC RDW Std Deviation RDW Coeff of Darrion Plt Count MPV Immature Gran % (Auto) Neut % (Auto) Lymph % (Auto) [place] % (Auto) Eos % (Auto) Baso % (Auto) Absolute Neuts (auto) Absolute Lymphs (auto) Nucleated RBC % Specimen Type Sample Site pH Bicarbonate Actual Total CO2 Base Excess O2 Saturation O2 % ABG pCO2 ABG pO2 Respiration Rate O2 Delivery Device Vent Mode Tidal Volume Sodium Potassium Chloride Carbon Dioxide Anion Gap BUN Creatinine Estim Creat Clear Calc Est GFR (MDRD) Af Amer Est GFR (MDRD) Non-Af BUN/Creatinine Ratio Glucose Hemoglobin A1c Calcium Phosphorus Magnesium Total Bilirubin AST ALT Alkaline Phosphatase Total Creatine Kinase Total Protein Albumin Globulin Albumin/Globulin Ratio Triglycerides POC Glucose 213 H 202 H 198 H 08/21/20 08/21/20 08/21/20 15:35 15:35 15:55 WBC 13.6 H RBC 4.29 Hgb 12.2 Hct 39.1 MCV 91.1 MCH 28.4 MCHC 31.2 L RDW Std Deviation 53.9 H RDW Coeff of Darrion 16.2 H Plt Count 311 MPV 10.5 Immature Gran % (Auto) Neut % (Auto) Lymph % (Auto) [place] % (Auto) Eos % (Auto) Baso % (Auto) Absolute Neuts (auto) Absolute Lymphs (auto) Nucleated RBC % Specimen Type Sample Site pH Bicarbonate Actual Total CO2 Base Excess O2 Saturation O2 % ABG pCO2 ABG pO2 Respiration Rate O2 Delivery Device Vent Mode Tidal Volume Sodium 137 Potassium 5.3 H Chloride 102 Carbon Dioxide 30.0 Anion Gap 5 BUN 56 H Creatinine 0.99 Estim Creat Clear Calc 65.93 Est GFR (MDRD) Af Amer 79 Est GFR (MDRD) Non-Af 65 BUN/Creatinine Ratio 56.6 H Glucose 183 H Hemoglobin A1c Calcium 9.1 Phosphorus 3.0 Magnesium 1.9 Total Bilirubin AST ALT Alkaline Phosphatase Total Creatine Kinase Total Protein Albumin Globulin Albumin/Globulin Ratio Triglycerides POC Glucose 185 H 08/21/20 08/21/20 08/21/20 16:53 18:02 19:00 WBC RBC Hgb Hct MCV MCH MCHC RDW Std Deviation RDW Coeff of Darrion Plt Count MPV Immature Gran % (Auto) Neut % (Auto) Lymph % (Auto) [place] % (Auto) Eos % (Auto) Baso % (Auto) Absolute Neuts (auto) Absolute Lymphs (auto) Nucleated RBC % Specimen Type Sample Site pH Bicarbonate Actual Total CO2 Base Excess O2 Saturation O2 % ABG pCO2 ABG pO2 Respiration Rate O2 Delivery Device Vent Mode Tidal Volume Sodium Potassium Chloride Carbon Dioxide Anion Gap BUN Creatinine Estim Creat Clear Calc Est GFR (MDRD) Af Amer Est GFR (MDRD) Non-Af BUN/Creatinine Ratio Glucose Hemoglobin A1c Calcium Phosphorus Magnesium Total Bilirubin AST ALT Alkaline Phosphatase Total Creatine Kinase Total Protein Albumin Globulin Albumin/Globulin Ratio Triglycerides POC Glucose 167 H 148 H 134 H 08/21/20 08/21/20 08/21/20 19:56 21:10 22:05 WBC RBC Hgb Hct MCV MCH MCHC RDW Std Deviation RDW Coeff of Darrion Plt Count MPV Immature Gran % (Auto) Neut % (Auto) Lymph % (Auto) [place] % (Auto) Eos % (Auto) Baso % (Auto) Absolute Neuts (auto) Absolute Lymphs (auto) Nucleated RBC % Specimen Type Sample Site pH Bicarbonate Actual Total CO2 Base Excess O2 Saturation O2 % ABG pCO2 ABG pO2 Respiration Rate O2 Delivery Device Vent Mode Tidal Volume Sodium Potassium Chloride Carbon Dioxide Anion Gap BUN Creatinine Estim Creat Clear Calc Est GFR (MDRD) Af Amer Est GFR (MDRD) Non-Af BUN/Creatinine Ratio Glucose Hemoglobin A1c Calcium Phosphorus Magnesium Total Bilirubin AST ALT Alkaline Phosphatase Total Creatine Kinase Total Protein Albumin Globulin Albumin/Globulin Ratio Triglycerides POC Glucose 174 H 165 H 172 H 08/21/20 08/21/20 08/22/20 23:15 23:57 01:34 WBC RBC Hgb Hct MCV MCH MCHC RDW Std Deviation RDW Coeff of Darrion Plt Count MPV Immature Gran % (Auto) Neut % (Auto) Lymph % (Auto) [place] % (Auto) Eos % (Auto) Baso % (Auto) Absolute Neuts (auto) Absolute Lymphs (auto) Nucleated RBC % Specimen Type Sample Site pH Bicarbonate Actual Total CO2 Base Excess O2 Saturation O2 % ABG pCO2 ABG pO2 Respiration Rate O2 Delivery Device Vent Mode Tidal Volume Sodium Potassium Chloride Carbon Dioxide Anion Gap BUN Creatinine Estim Creat Clear Calc Est GFR (MDRD) Af Amer Est GFR (MDRD) Non-Af BUN/Creatinine Ratio Glucose Hemoglobin A1c Calcium Phosphorus Magnesium Total Bilirubin AST ALT Alkaline Phosphatase Total Creatine Kinase Total Protein Albumin Globulin Albumin/Globulin Ratio Triglycerides POC Glucose 194 H 184 H 177 H 08/22/20 08/22/20 08/22/20 02:53 04:04 04:20 WBC 11.7 H RBC 4.11 L Hgb 11.8 L Hct 37.7 MCV 91.7 MCH 28.7 MCHC 31.3 L RDW Std Deviation 54.8 H RDW Coeff of Darrion 16.2 H Plt Count 266 MPV 9.9 Immature Gran % (Auto) 0.800 Neut % (Auto) 64.6 Lymph % (Auto) 27.3 [place] % (Auto) 6.8 Eos % (Auto) 0.1 Baso % (Auto) 0.4 Absolute Neuts (auto) 7.6 Absolute Lymphs (auto) 3.20 Nucleated RBC % 0 Specimen Type Sample Site pH Bicarbonate Actual Total CO2 Base Excess O2 Saturation O2 % ABG pCO2 ABG pO2 Respiration Rate O2 Delivery Device Vent Mode Tidal Volume Sodium Potassium Chloride Carbon Dioxide Anion Gap BUN Creatinine Estim Creat Clear Calc Est GFR (MDRD) Af Amer Est GFR (MDRD) Non-Af BUN/Creatinine Ratio Glucose Hemoglobin A1c Calcium Phosphorus Magnesium Total Bilirubin AST ALT Alkaline Phosphatase Total Creatine Kinase Total Protein Albumin Globulin Albumin/Globulin Ratio Triglycerides POC Glucose 145 H 142 H 08/22/20 04:20 WBC RBC Hgb Hct MCV MCH MCHC RDW Std Deviation RDW Coeff of Darrion Plt Count MPV Immature Gran % (Auto) Neut % (Auto) Lymph % (Auto) [place] % (Auto) Eos % (Auto) Baso % (Auto) Absolute Neuts (auto) Absolute Lymphs (auto) Nucleated RBC % Specimen Type Sample Site pH Bicarbonate Actual Total CO2 Base Excess O2 Saturation O2 % ABG pCO2 ABG pO2 Respiration Rate O2 Delivery Device Vent Mode Tidal Volume Sodium 140 Potassium 3.8 Chloride 101 Carbon Dioxide 33.0 H Anion Gap 6 BUN 53 H Creatinine 0.80 Estim Creat Clear Calc 81.59 Est GFR (MDRD) Af Amer 101 Est GFR (MDRD) Non-Af 83 BUN/Creatinine Ratio 66.4 H Glucose 149 H Hemoglobin A1c Calcium 8.8 Phosphorus Magnesium Total Bilirubin 0.20 AST 19 ALT 14 Alkaline Phosphatase 59 Total Creatine Kinase Total Protein 6.9 Albumin 2.6 L Globulin 4.3 H Albumin/Globulin Ratio 0.6 L Triglycerides POC Glucose Microbiology 08/20/20 06:10 Sputum, Induced/[place] Gram Stain - Final 08/20/20 06:10 Sputum, Induced/[place] Respiratory Culture - Preliminary Alpha Hemolytic Streptococcus 08/19/20 22:19 Urine Catheter - Choe Streptococcus pneumoniae Antigen (M - Final 08/19/20 22:19 Urine Catheter - Choe Legionella Antigen - Final 08/19/20 22:19 Urine, Clean Catch Urine Culture - Preliminary Culture exhibits no growth. Clinical Impression(s) from Imaging Studies Chest X-Ray 08/19/20 22:00 IMPRESSION: Pulmonary edema. at 2228 Reported and signed by: Caio Bruno MD Electronically Signed: Caio Bruno MD at 22:27 EDT Tel , Service support , Chest CT 08/19/20 23:19 IMPRESSION: No acute thoracic disease. Hepatomegaly. Individualized dose optimization techniques were used for this CT. at 0200 Reported and signed by: Caio Bruno MD Electronically Signed: Caio Bruno MD at 1:59 EDT Tel , Service support , Brain CT 08/19/20 23:31 IMPRESSION: Negative Brain CT without contrast. Individualized dose optimization techniques were used for this CT. at 0157 Reported and signed by: Caio Bruno MD Electronically Signed: Caio Bruno MD at 1:56 EDT Tel , Service support , Chest X-Ray 08/20/20 06:10 IMPRESSION: Ill-defined subpleural groundglass opacities are seen more prominent in the lung bases , may represent atypical pneumonia or viral pneumonia. NG tube is seen its tip is at the GE junction and can be advanced 10 cm. Electronically Signed: Patti Jensen, at 8:05 EDT Tel , Service support , ADDENDUM: 08/20/20 0821 IMPRESSION: Ill-defined subpleural groundglass opacities are seen more prominent in the lung bases , may represent atypical pneumonia or viral pneumonia. NG tube is seen its tip is at the GE junction and can be advanced 10 cm. N.B. : The above information has been verbally conveyed by Patti Jensen to [place] Dumont MD, on 08/20/2020 08:14:40 (ET). Electronically Signed: Patti Jensen, at 8:05 EDT Tel , Service support , Medical Necessity - Tobacco Use Smoking Status: Current every day smoker Assessment/Plan All Active Problems (Last Reviewed 08/20/20 @ 03:[address] Chris Gill MD) Opiate overdose (Resolved) Cellulitis of leg (Acute) KERRY (acute kidney injury) (Acute) Acute encephalopathy (Acute) Sepsis (Acute) CAP (community acquired pneumonia) (Acute) Respiratory failure with hypoxia (Acute) RECOMMENDATIONS: 1. Continue to wean FiO2 as tolerated. 2. Continue empiric antimicrobials. 3. Transition from propofol to Precedex to facilitate weaning from invasive mechanical ventilatory support. 4. Plan for paired spontaneous awakening and breathing trial again tomorrow morning. 5. Continue tube feeds as tolerated. 6. Continue therapeutic Lovenox and Pepcid via G-tube. 7. Increase basal Lantus and wean patient from insulin infusion. Start high intensity sliding scale coverage every 4 hours. 8. Continue gentle diuresis as tolerated by hemodynamics and renal function. IMPRESSIONS: 1. Acute on chronic combined respiratory failure Suspect that this is secondary to illicit opiate medication use coupled with alveolar hypoventilation secondary to obesity and poor outpatient compliance w ith the use of supplemental oxygen and noninvasive positive pressure ventilatory support. The patient does not have obstructive lung disease, based upon her last pulmonary function studies. She is currently on antimicrobials for possible left lower lobe pneumonia. I do not see any evidence of lower extremity cellulitis. For now, we will plan to continue current supportive measures. FiO2 will be weaned as tolerated, with plans for paired spontaneous awakening and breathing trials. The patient will be continued on antimicrobials. Continue tube feeds as tolerated. Continue diuretic therapy as tolerated by hemodynamics and renal function. Transition from propofol to Precedex to facilitate weaning from invasive mechanical ventilatory support. 2. Severe sepsis with concern for left lower lobe pneumonia We will plan to continue empiric antimicrobials, pending finalized infectious work-up. The patient remains hemodynamically stable. 3. Acute kidney injury Resolved. Likely multifactorial in etiology and related to #1 coupled with possible vascular congestion. The patient's renal function is improving with gentle diuresis. This will be continued as tolerated by hemodynamics and renal function. Continue to monitor urine output accordingly. No current indication for renal replacement therapy. 4. Poorly controlled diabetes mellitus Plan to increase basal Lantus regimen and transition the patient off of the insulin infusion. High intensity sliding scale coverage will be initiated every 4 hours. We will continue to wean steroids as tolerated. 5. Encephalopathy Improving. Likely secondary to hypercapnia in the setting of opiate pain medication use coupled with alveolar hypoventilation from obesity. Plan to continue current supportive measures as noted above. 6. Super morbid obesity/tobacco dependency/obstructive sleep apnea with Pap noncompliance/history of PE Complicates care, management, recovery and prognosis. Physical therapy to work with the patient. Continue tube feeds as tolerated. BiPAP therapy will be restarted once the patient is able to be successfully extubated. TIME: 36 minutes of critical care time, independent of procedures, was spent addressing the patient's acute on chronic combined respiratory failure, severe sepsis, acute kidney injury, poorly controlled diabetes mellitus, encephalopathy, review of all data and collaboration with the care team. ([id number]) [id number] Critical care first hour
[2020-08-22] MEDS: Ipratropium/Albuterol Sulfate 3 ML AMPUL.NEB INHALATION ×5 (06:52→22:49)
[2020-08-22 07:00] LABS: Bedside Glucose 147 mg/dL (70-110)
[2020-08-22 07:00] LABS: Bedside Glucose 146 mg/dL (70-110)
--- NOTE | 2020-08-22 07:03 | PN_ITS ---
Subjective: Patient overnight without acute issues, failed am SBT, ability to decrease FiO2 to 30% despite failed SBT, notable onset tachycardia and tachypnea with attempts and increased oral secretions. Discussed with [employer] and noted planned transition to precedex this AM, weaning propofol currently. Still requiring insulin drip 10.8 with BS 140s with weaned steroids to 40 mg IV daily, no fevers evident with ongoing rocephin and azithromycin with sputum cx w/ alpha hemolytic strep. Patient without evidence of fevers, chills, nausea, emesis, abdominal p ain. Objective: Physical Examination: General: Patient currently sedated, does move to examination but no marked, not alert, unable to answer orientation questions, seated upright in the ICU bed, no current distress, intubated. Skin: normal color, turgor, no icterus, cyanosis except bilateral lower extremity chronic venous stasis skin changes, no obvious evidence of cellulitic changes, improved. HEENT: AT/NC, EOM full to be assessed given current state status, PERRLA, mildly dry MM, intubated, extremely thickened neck. Lungs: Intubated, sedated, symmetric rise, coarse, rhonchorous bilaterally, notably wheezing, diminished bases. Heart: Tachycardic with regular rhythm; no gallop, rub audible. Abdomen: soft, morbidly obese, no obvious evidence of TTP, appears distended but difficult assessment given habitus, distant normal bowel sounds. Extremities: no cyanosis, clubbing, mild bilateral hand edema, no obvious pitting edema in his lower extremities, see skin. Neurological: distress, intubated; cognitive function baseline intact; pupils equally reactive to light and accomodation; cranial nerves unable to be assessed well given sedation, some minimal movement to stimuli currently, strength severely decreased. Psychiatric: affect appears flat, sedate, no acute evidence of depressive or anxiety feelings. Vitals/I&O's: Vital Signs Temp Pulse Resp BP Pulse Ox 99.0 F 84 14 141/70 H 93 08/22/20 07:00 08/22/20 07:00 08/22/20 07:00 08/22/20 07:00 08/22/20 07:00 Oxygen Flow Rate (L/min) 6 Oxygen Delivery Method Mechanical Ventilator Weight: 365 lb 1.368 oz Body Mass Index (BMI) 62.1 Finger Stick Blood Glucose 147 Intake and Output for Last 24 Hours 08/20/20 08/21/20 08/22/20 23:59 23:59 23:59 Intake Total 2865.05 / 3110.20 3582.90 / 3803.30 1454.70 / 1454.70 Output Total 2550 / 2775 3940 / 4215 1350 / 1350 Balance 315.05 / 335.20 -357.10 / -411.70 104.70 / 104.70 Microbiology Past 72 Hours 08/20/20 06:10 Sputum, Induced/Lukens Gram Stain - Final 08/20/20 06:10 Sputum, Induced/Lukens Respiratory Culture - Preliminary Alpha Hemolytic Streptococcus 08/19/20 22:19 Urine Catheter - Choe Streptococcus pneumoniae Antigen (M - Final 08/19/20 22:19 Urine Catheter - Choe Legionella Antigen - Final 08/19/20 22:19 Urine, Clean Catch Urine Culture - Preliminary Culture exhibits no growth. Laboratory Results 08/21/20 07:53: POC Glucose 236 H 08/21/20 08:59: POC Glucose 209 H 08/21/20 09:26: Specimen Type ART, Sample Site R Brach, pH 7.37, Bicarbonate Actual 29.9 H, Total CO2 32, Base Excess 5 H, O2 Saturation 93 L, O2 % 45, ABG pCO2 52.3 H, ABG pO2 70 L, Respiration Rate 14.0000, O2 Delivery Device ET Tube, Vent Mode AC, Tidal Volume 500 08/21/20 10:00: POC Glucose 201 H 08/21/20 11:07: POC Glucose 219 H 08/21/20 12:00: POC Glucose 221 H 08/21/20 13:03: POC Glucose 213 H 08/21/20 13:58: POC Glucose 202 H 08/21/20 15:06: POC Glucose 198 H 08/21/20 15:35: WBC 13.6 H, RBC 4.29, Hgb 12.2, Hct 39.1, MCV 91.1, MCH 28.4, MCHC 31.2 L, RDW Std Deviation 53.9 H, RDW Coeff of Darrion 16.2 H, Plt Count 311, MPV 10.5 08/21/20 15:35: Sodium 137, Potassium 5.3 H, Chloride 102, Carbon Dioxide 30.0, Anion Gap 5, BUN 56 H, Creatinine 0.99, Estim Creat Clear Calc 65.93, Est GFR (MDRD) Af Amer 79, Est GFR (MDRD) Non-Af 65, BUN/Creatinine Ratio 56.6 H, Glucose 183 H, Calcium 9.1, Phosphorus 3.0, Magnesium 1.9 08/21/20 15:55: POC Glucose 185 H 08/21/20 16:53: POC Glucose 167 H 08/21/20 18:02: POC Glucose 148 H 08/21/20 19:00: POC Glucose 134 H 08/21/20 19:56: POC Glucose 174 H 08/21/20 21:10: POC Glucose 165 H 08/21/20 22:05: POC Glucose 172 H 08/21/20 23:15: POC Glucose 194 H 08/21/20 23:57: POC Glucose 184 H 08/22/20 01:34: POC Glucose 177 H 08/22/20 02:53: POC Glucose 145 H 08/22/20 04:04: POC Glucose 142 H 08/22/20 04:20: WBC 11.7 H, RBC 4.11 L, Hgb 11.8 L, Hct 37.7, MCV 91.7, MCH 28.7, MCHC 31.3 L, RDW Std Deviation 54.8 H, RDW Coeff of Darrion 16.2 H, Plt Count 266, MPV 9.9, Immature Gran % (Auto) 0.800, Neut % (Auto) 64.6, Lymph % (Auto) 27.3, Hyde % (Auto) 6.8, Eos % (Auto) 0.1, Baso % (Auto) 0.4, Absolute Neuts (auto) 7.6, Absolute Lymphs (auto) 3.20, Nucleated RBC % 0 08/22/20 04:20: Sodium 140, Potassium 3.8, Chloride 101, Carbon Dioxide 33.0 H, Anion Gap 6, BUN 53 H, Creatinine 0.80, Estim Creat Clear Calc 81.59, Est GFR (MDRD) Af Amer 101, Est GFR (MDRD) Non-Af 83, BUN/Creatinine Ratio 66.4 H, Glucose 149 H, Calcium 8.8, Total Bilirubin 0.20, AST 19, ALT 14, Alkaline Phosphatase 59, Total Protein 6.9, Albumin 2.6 L, Globulin 4.3 H, Albumin/Globulin Ratio 0.6 L 08/22/20 05:00: POC Glucose 146 H 08/22/20 05:59: POC Glucose 147 H Current Medications Acetaminophen (Tylenol) 650 mg PO Q6H PRN PRN PRN Reason: Pain Score 1-10/Temp > 100.7 F Albuterol Sulfate (Ventolin Aerosols) 2.5 mg INHALATION Q2H PRN PRN PRN Reason: SOB/Wheezing Albuterol/Ipratropium (Duoneb) 3 ml INHALATION Q4H.RT [facility] Last Admin: 08/22/20 06:52 Dose: 3 ml Documented by: Chlorhexidine Gluconate () 15 ml PO BID [facility] Last Admin: 08/21/20 20:18 Dose: 15 ml Documented by: Dextrose (D50w Syringe) 0 gm IV X1 PRN; Protocol PRN Reason: Hypoglycemia Enoxaparin Sodium (Lovenox) 170 mg SC Q12 [facility] Last Admin: 08/21/20 20:18 Dose: 170 mg Documented by: Famotidine (Pepcid) 20 mg GT BID [facility] Last Admin: 08/21/20 20:19 Dose: 20 mg Documented by: Furosemide (Lasix) 40 mg IV BID@1000,1800 [facility] Last Admin: 08/21/20 17:00 Dose: 40 mg Documented by: Glucagon () 1 mg IM .X1 PRN PRN Reason: Hypoglycemia Azithromycin 500 mg/ Dextrose 255 mls @ 250 mls/hr IV Q24@2200 [facility] Stop: 08/22/20 23:02 Last Infusion: 08/21/20 23:01 Dose: Infused Documented by: Sodium Chloride () 250 mls @ 15 mls/hr IV .[id number] PRN PRN Reason: Additional IVPB Infusion Last Infusion: 08/21/20 14:37 Dose: Infused Documented by: Propofol (Diprivan) 1,000 mg in 100 mls @ 9.936 mls/hr CONT INF .Q10H4M [facility]; Protocol Last Admin: 08/22/20 06:00 Dose: 50 mcg/kg/min, 49.7 mls/hr Documented by: Fentanyl Citrate 1,000 mcg/ (Sodium Chloride) 100 mls @ 2.5 mls/hr CONT INF .Q40H [facility]; Protocol Last Titration: 08/22/20 06:00 Dose: 125 mcg/hr, 12.5 mls/hr Documented by: Ceftriaxone Sodium 2 gm/ (Sodium Chloride) 50 mls @ 100 mls/hr IV Q24 [facility] Last Infusion: 08/21/20 10:24 Dose: Infused Documented by: Insulin Human Lispro 100 unit/ (Sodium Chloride) 100 mls @ 16.93 mls/hr IV .Q5H55M [facility]; Protocol Last Infusion: 08/22/20 06:00 Dose: 10.8 mls/hr Documented by: Enteral Nutritional Formula (Vital High Protein) 1,000 mls @ 60 mls/hr GT .[id number] [facility] Last Admin: 08/21/20 16:56 Dose: 60 mls/hr Documented by: Dexmedetomidine HCl 400 mcg/ (Sodium Chloride) 100 mls @ 20.7 mls/hr CONT INF .Q4H50M [facility]; Protocol Insulin Glargine (Lantus (Bkc)) 60 units SC BID [facility] Last Admin: 08/21/20 22:00 Dose: 60 units Documented by: Labetalol HCl (Trandate) 10 mg IV Q6H PRN PRN PRN Reason: SBP > 160 OR DBP > 120 Methylprednisolone (Solu-Medrol) 40 mg IV DAILY [facility] Naloxone HCl (Narcan) 0.02 mg IV Q1M PRN PRN Reason: RR <10 and pt unresponsive Ondansetron HCl (Zofran) 4 mg IV Q8H PRN PRN PRN Reason: NAUSEA/VOMITING Last Admin: 08/20/20 03:53 Dose: 4 mg Documented by: Sodium Chloride () 10 - 40 ml IV UD PRN PRN Reason: SALINE FLUSH Last Admin: 08/22/20 04:47 Dose: 10 ml Documented by: STROKE Vital Signs/Narrative: Vital Signs Temp Pulse Resp BP Pulse Ox 08/22/20 07:00 99.0 F 84 14 141/70 H 93 08/22/20 06:00 99.2 F H 89 19 H 142/80 H 91 08/22/20 05:00 99.3 F H 108 H 27 H 150/73 H 95 08/22/20 04:55 103 H 22 H 98 08/22/20 04:00 98.9 F 79 17 112/60 93 08/22/20 03:59 79 Medical Necessity - Tobacco Use Smoking Status: Current every day smoker Assessment/Plan All Active Problems (Last Reviewed 08/20/20 @ 03:[address] Chris Gill MD) Opiate overdose (Resolved) Cellulitis of leg (Acute) KERRY (acute kidney injury) (Acute) Acute encephalopathy (Acute) Sepsis (Acute) CAP (community acquired pneumonia) (Acute) Respiratory failure with hypoxia (Acute) The patient is a 45 y/o F w/ PMHx: Diabetes mellitus type II with neuropathy, Morbid Obesity, Anxiety and Depression, Hx NSTEMI, CAD, HTN, HLD, Chronic Hypoxic Respiratory Failure (6L NC), Hx PE, Tobacco use, LOGAN, GERD, Chronic COPD who presents to the [facility] ED on 08/19/20 with history of unresponsiveness and hypoxia. 1. Acute Severe Sepsis secondary to Acute on Chronic Hypoxic and Hypercarbic Respiratory Failure, Multifactorial, Narcotic Overdose, Hypoventilation Syndrome, Worsening Pulmonary HTN, Acute on Chronic COPD Exacerbation, Possible Volume Overload, Possible LLL CAP and Possible LLE Cellulitis: ED presentation with CBC with WBC 14.2, hemoglobin 1.7, platelet 259 with left shift, ABG at that time with pH 7.17, bicarb 20.3, O2 saturation 91, PCO2 78, PO2 80 with placement on BiPAP at that time and eventual intubation following transition to the ICU, CMP with sodium 132, chloride 97, BUN/creatinine 49/2.12, glucose 338, troponin less than 0.015, BNP 38, urine drug screen with positive opiates, CXR upon presentation with concern for possible pulmonary edema with follow-up CT chest with no acute thoracic disease, evidence hepatomegaly, some interstitial edema and pulmonary venous congestion with atelectasis but not severe appearing. Patient admitted to the ICU, intubated following admission, failed SBT 08/22/20 AM with increased secretions, elevated HR, elevated RR. Continued intubation with addition precedex per ICU discretion 08/22/20, continued ATC duonebs, PRN albuterol, continued IV solumedrol but weaned to 40 mg IV daily, maintained on IV Rocephin and Azithromycin w/ 08/22/20 CBC w/ WBC 11.7 without shift, maintained on tube feeds with nutrition consultation, IV lasix for concern for possible volume overload ongoing, HOB, IS parameters w/ sputum cultures alpha hemolytic strep noted, negative urine antigens, negative COVID testing. Bld cx x 2 obtained in the ED. Patient urine drug screen as noted with positive opiates, unclear exposure, will investigate further with case management consultation for ? substance abuse. 2. Acute Encephalopathy secondary to #1: Patient with several etiologies for encephalopathy including carbon oxide narcosis, morbid obesity, hyperglycemia, acute kidney injury, acute COPD exacerbation and questionable pneumonia, continue treatments as noted, currently sedated, intubated, failed 08/22/20 SBT. 3. Acute kidney injury: Secondary to acute presentation as noted #1, #2. Admission BUN/Cr 49/2.12, prior baseline creatinine noted to be 0.7-0.9. Given patient volume overload and congestion ongoing diuresis, 08/20/2020 BUN/creatinine 58/1.24-->08/22/20 BUN/Cr 53/0.80. 4. Hyperosmolar nonketotic state secondary to uncontrolled insulin-dependent diabetes mellitus type II: Admission blood sugar significantly elevated especially with usage of steroid therapies, hemoglobin A1c 11.2, maintained on insulin drip secondary to significant hyperglycemia with initiation of tube feeds, decreasing BS with decreasing insulin drip needs, planned transition to SC and ISS per ICU discretion. Patient at home normally on insulin glargine 70 units subcu twice daily and scheduled aspart 38 units 3 times daily. 5. Hypertension: Patient normally on diltiazem, hydrochlorothiazide, lisinopril, currently held with low normal blood pressures likely secondary to #1, in addition to scheduled IV Lasix usage, PRN IV hydralazine. Add back oral regimen once appropriate. 6. Hyperlipidemia: Continue home statin regimen. 7. GERD: Maintained on famotidine. 8. History of pulmonary embolism: Holding home Eliquis therapy, maintained on therapeutic Lovenox. 9. Morbid Obesity: Weight loss and lifestyle changes encouraged, nutrition consulted. 10. Tobacco Abuse: Encouraged cessation, inpatient consultation per RT, NR if desired. 11. LOGAN: Noncompliant with CPAP, will encourage usage once appropriate. 12. DVT prophylaxis: SCDs, continue therapeutic Lovenox. Inpatient E&M: [id number] [facility] L3
[2020-08-22 07:36] LABS: Bedside Glucose 142 mg/dL (70-110)
[2020-08-22] MEDS: Propofol 10MG/Ml 1,000 MG/100 ML Bottle 39.7 MG CONT INF (08:01)
[2020-08-22 08:10] LABS: Bedside Glucose 135 mg/dL (70-110)
[2020-08-22 09:11] LABS: Bedside Glucose 134 mg/dL (70-110)
[2020-08-22] MEDS: Famotidine 20 MG Tablet GT ×2 (10:02→19:49)
[2020-08-22] MEDS: Chlorhexidine 15 ML PO ×2 (10:02→19:48)
[2020-08-22] MEDS: Vital High Protein 1,000 ML 60 ML GT (10:03)
[2020-08-22] MEDS: Furosemide 40 MG/4 ML Vial IV ×2 (10:03→17:18)
[2020-08-22] MEDS: Enoxaparin 100 MG/ML Syringe 170 MG SC (10:04)
[2020-08-22] MEDS: Senna/Docusate Sodium 1 Tablet 2 TABLET PO (10:07)
--- NOTE | 2020-08-22 10:07 | CASEMGMT ---
LORENZO GARCAÍ Assessment Note Patient is day #3, remains on ventilator and unable to fully participate in assessment. LORENZO GARCÍA spoke with chandni Lucio via phone in ICU rounds and requested to call her once rounds were complete. She was agreeable and LORENZO GARCÍA called her to review assessment. Per daughter, patient recently moved to mobile home. She has increasing difficulty with ambulation and activity at home due to her size and painful feet and legs. Daughter states she has been independent with ADL and IADL's, but her family provides all transportation. Diagnosis: Sepsis, Hypoxic and Hypercarbic Resp Failure. PCP: Dr. Oreilly Specialists: Dr. Dumont Insurance: [facility] Preferred Pharmacy: [facility] Prescription Benefit: yes LNOK: Daughter, Naveed Gordon Living Arrangements: mobile home, alone. Previously had not need assistance with ADL's. Tranportation: Family provides transportation DME: cane, Home oxygen through [employer]. Call to [employer]- script is for 2L NC continuous, has concentrator and portability, Bipap. Daughter stated pt does not have Bipap mask, and [employer] stated it would cost $700 to replace. Per [employer], her account is in collections for $700.00, which would need paid before new services can be provided. -Call to AMISH Gruber to update and request when patient is off ventilator, to evaluate for a mask on dc. Per [facility]ISH Gruber can contact sleep lab for assistance when patient has been extubated. Patient has a history of noncompliance. HHC: none SNF: none. Discussed with daughter that dc plan will be evaluated closer once patient is off ventilator and PT/OT has worked with her. Anticipate patient will need SNF for short term rehab on dc, or Home Health if she returns home. Daughter states she can come to her home when discharged from SNF or hospital and will be available for assistance with dc planning. Patient DC Goals: undetermined DC Plan: undetermined, anticipate will need SNF. CM available for discharge planning coordination. Contact CM for any concerns/needs that may arise. Wayne SIMPSON RN ACM
[2020-08-22 10:35] LABS: Bedside Glucose 120 mg/dL (70-110)
[2020-08-22 11:15] LABS: Bedside Glucose 136 mg/dL (70-110)
[2020-08-22] MEDS: Dexmedetomidine 1,000 mcg in 0.9% NS 240 mL 62.1 MCG CONT INF ×3 (12:45→20:38)
[2020-08-22] MEDS: Insulin Lispro 100 UNIT/ML INSULN.PEN SC ×5 (13:22→21:22)
[2020-08-22] MEDS: Lisinopril 20 MG Tablet PO (13:36)
[2020-08-22 15:11] LABS: Bedside Glucose 290 mg/dL (70-110)
[2020-08-22 15:11] LABS: Bedside Glucose 317 mg/dL (70-110)
[2020-08-22] MEDS: dilTIAZem 30 MG Tablet GT (15:21)
[2020-08-22] MEDS: hydroCHLOROthiazide 25 MG Tablet GT (15:21)
[2020-08-22] MEDS: Labetalol (Prefilled) 20 MG/4 ML 10 MG IV (16:39)
[2020-08-22] MEDS: Acetaminophen 650 MG/20 ML UDC GT (17:18)
[2020-08-22 17:36] LABS: Bedside Glucose 314 mg/dL (70-110)
[2020-08-22] MEDS: hydrALAZINE 50 MG Tablet GT (18:35)
[2020-08-22] MEDS: cloNIDine HCl 0.1 MG Tablet GT (18:35)
[2020-08-22] MEDS: APIXABAN 5 MG TABLET GT (19:48)
[2020-08-22] MEDS: busPIRone 5 MG Tablet GT (19:49)
[2020-08-22] MEDS: Senna/Docusate Sodium 1 Tablet 2 TABLET GT (19:49)
[2020-08-22] MEDS: Atorvastatin Calcium 40 MG Tablet GT (20:00)
[2020-08-22] MEDS: Gabapentin 300 MG Capsule 900 MG GT (20:00)
[2020-08-22] MEDS: Labetalol (Prefilled) 20 MG/4 ML IV (21:11)
[2020-08-22] MEDS: QUEtiapine 25 MG Tablet 50 MG PO (21:15)
[2020-08-22 21:31] LABS: Bedside Glucose 368 mg/dL (70-110)
[2020-08-23] VITALS (35 sets, daily range): BP systolic 96–199; BP diastolic 46–93; PULSE 58–85; RESP 12–27; TEMP 37.3–38.1; O2SAT 92–100
[2020-08-23] MEDS: Dexmedetomidine 1,000 mcg in 0.9% NS 240 mL 62.1 MCG CONT INF (00:05)
[2020-08-23] MEDS: dilTIAZem 30 MG Tablet GT (00:06)
[2020-08-23] MEDS: Labetalol (Prefilled) 20 MG/4 ML IV (01:26)
[2020-08-23] MEDS: Insulin Lispro 100 UNIT/ML INSULN.PEN SC ×8 (01:35→21:10)
[2020-08-23] MEDS: Ipratropium/Albuterol Sulfate 3 ML AMPUL.NEB INHALATION ×6 (02:17→22:52)
[2020-08-23] MEDS: Dexmedetomidine 1,000 mcg in 0.9% NS 240 mL 58 MCG CONT INF (04:28)
[2020-08-23] MEDS: hydrALAZINE 50 MG Tablet GT (04:55)
[2020-08-23] MEDS: dilTIAZem 60 MG Tablet GT ×2 (04:56→12:30)
[2020-08-23 05:10] LABS: Bedside Glucose 275 mg/dL (70-110)
[2020-08-23] MEDS: TITRATION PARAMETER CHANGE 1 EACH IV (05:28)
[2020-08-23] MEDS: Gabapentin 300 MG Capsule 900 MG GT (05:39)
[2020-08-23 05:51] LABS: Bedside Glucose 269 mg/dL (70-110)
[2020-08-23 06:00] LABS: Absolute Lymphocyte Count 2.76 X10^3/uL (0.83-4.51); Absolute Neutrophil Count 7.3 X10^3/uL (2.0-7.7); Basophil# 0.05 X10^3/uL; Basophil% 0.5 % (0-1); Eosinophil# 0.04 X10^3/uL; Eosinophils% 0.4 % (0-5); Hematocrit 40.3 % (37-47); Hemoglobin 12.5 g/dL (12.0-15.0); Lymphocyte # 2.76 X10^3/ul (4.0); Lymphocyte % 25.3 % (19-41); Mean Corpuscular Hgb 28.1 pg (27.0-32.0); Mean Corpuscular Volume 90.6 fL (81-99); Mean Platelet Vol. 9.7 fl (6.2-12.0); Monocyte# 0.72 X10^3/uL; Monocyte% 6.6 % (0-10); NRBC Flagged by Analyzer 0 % (0-5); Neutrophil # 7.25 X10^3/uL (2.7-7.7); Neutrophil % 66.5 % (47-70); Platelet Count 258 K/mm3 (150-450); RBC Distribution Width CV 15.7 % (11.6-14.6); RBC Distribution Width SD 51.9 fl (35.1-43.9); Red Blood Count 4.45 M/mm3 (4.2-5.4); White Blood Count 10.9 K/mm3 (4.4-11.0)
--- NOTE | 2020-08-23 06:07 | PN_ITS ---
Subjective: The patient was seen and examined at the bedside this morning. Events from the last 24 hours have been reviewed. The patient currently has a low-grade fever, likely the consequence of Precedex, but remains hemodynamically stable. FiO2 requirement is minimal at 30%. The patient did have to be started on Seroquel last evening, as she was still agitated on maximum doses of Precedex and fentanyl. This did aid in symptom improvement. Nevertheless, the patient still is experiencing intermittent anxiety. Overnight, her antihypertensive regimen was increased due to persistently elevated blood pressures. The patient has done well thus far this morning on her spontaneous breathing trial. She is currently documented to be overall net -1.5 L for the hospital admission. Creatinine remains stable. Blood glucose levels have been in the mid 200s for the most part. Objective: The patient's most recent lab work, culture data and imaging studies have all been personally reviewed. Strep and urine Legionella antigens were negative. Coronavirus PCR was negative. Blood, urine and sputum cultures have been unrevealing to date. General: - - Remains intubated and mechanically ventilated. Currently tolerating spontaneous mode of mechanical ventilation. HEENT: Atraumatic, Normocephalic Oral: No Gingival or Mucosal Lesions/ Ulcerations, - - Stable endotracheal and OG tubes. Neck: Supple, No Nodes, Trachea Midline Lungs: Diminished, Rhonchi, Wheezes Cardiovascular: Regular rate, Regular Rhythm Abdomen: Bowel Sounds Present, Soft, Non Tender, Obese Extremities: No clubbing, No cyanosis, No edema Skin: - - Chronic lower extremity venous stasis dermatitis Musculoskeletal: No Muscle Wasting Lymphatic: No Cervical, Supraclavicular, or Inguinal Adenopathy Neurological: - - No focal neurological deficits. Alert and following commands appropriately. Psych/Mental Status: Anxious Vital Signs Temp Pulse Resp BP Pulse Ox 100.5 F H 75 18 149/81 H 100 08/23/20 06:00 08/23/20 06:00 08/23/20 06:00 08/23/20 06:00 08/23/20 06:00 Oxygen Flow Rate (L/min) 6 Oxygen Delivery Method Mechanical Ventilator Weight: 353 lb 2.888 oz Body Mass Index (BMI) 62.1 Finger Stick Blood Glucose 120 Intake and Output for Last 24 Hours 08/21/20 08/22/20 08/23/20 23:59 23:59 23:59 Intake Total 3582.90 / 3803.30 3997.61 / 4693.71 1119.53 / 1119.53 Output Total 3940 / 4215 4900 / 5450 1750 / 1750 Balance -357.10 / -411.70 -902.39 / -756.29 -630.47 / -630.47 Labs (Last 48 Hours) 08/21/20 08/21/20 08/21/20 06:28 07:53 08:59 WBC RBC Hgb Hct MCV MCH MCHC RDW Std Deviation RDW Coeff of Darrion Plt Count MPV Immature Gran % (Auto) Neut % (Auto) Lymph % (Auto) [facility] % (Auto) Eos % (Auto) Baso % (Auto) Absolute Neuts (auto) Absolute Lymphs (auto) Nucleated RBC % Specimen Type Sample Site pH Bicarbonate Actual Total CO2 Base Excess O2 Saturation O2 % ABG pCO2 ABG pO2 Respiration Rate O2 Delivery Device Vent Mode Tidal Volume Sodium Potassium Chloride Carbon Dioxide Anion Gap BUN Creatinine Estim Creat Clear Calc Est GFR (MDRD) Af Amer Est GFR (MDRD) Non-Af BUN/Creatinine Ratio Glucose Calcium Phosphorus Magnesium Total Bilirubin AST ALT Alkaline Phosphatase Total Protein Albumin Globulin Albumin/Globulin Ratio POC Glucose 249 H 236 H 209 H 08/21/20 08/21/20 08/21/20 09:26 10:00 11:07 WBC RBC Hgb Hct MCV MCH MCHC RDW Std Deviation RDW Coeff of Darrion Plt Count MPV Immature Gran % (Auto) Neut % (Auto) Lymph % (Auto) [facility] % (Auto) Eos % (Auto) Baso % (Auto) Absolute Neuts (auto) Absolute Lymphs (auto) Nucleated RBC % Specimen Type ART Sample Site R Brach pH 7.37 Bicarbonate Actual 29.9 H Total CO2 32 Base Excess 5 H O2 Saturation 93 L O2 % 45 ABG pCO2 52.3 H ABG pO2 70 L Respiration Rate 14.0000 O2 Delivery Device ET Tube Vent Mode AC Tidal Volume 500 Sodium Potassium Chloride Carbon Dioxide Anion Gap BUN Creatinine Estim Creat Clear Calc Est GFR (MDRD) Af Amer Est GFR (MDRD) Non-Af BUN/Creatinine Ratio Glucose Calcium Phosphorus Magnesium Total Bilirubin AST ALT Alkaline Phosphatase Total Protein Albumin Globulin Albumin/Globulin Ratio POC Glucose 201 H 219 H 08/21/20 08/21/20 08/21/20 12:00 13:03 13:58 WBC RBC Hgb Hct MCV MCH MCHC RDW Std Deviation RDW Coeff of Darrion Plt Count MPV Immature Gran % (Auto) Neut % (Auto) Lymph % (Auto) [facility] % (Auto) Eos % (Auto) Baso % (Auto) Absolute Neuts (auto) Absolute Lymphs (auto) Nucleated RBC % Specimen Type Sample Site pH Bicarbonate Actual Total CO2 Base Excess O2 Saturation O2 % ABG pCO2 ABG pO2 Respiration Rate O2 Delivery Device Vent Mode Tidal Volume Sodium Potassium Chloride Carbon Dioxide Anion Gap BUN Creatinine Estim Creat Clear Calc Est GFR (MDRD) Af Amer Est GFR (MDRD) Non-Af BUN/Creatinine Ratio Glucose Calcium Phosphorus Magnesium Total Bilirubin AST ALT Alkaline Phosphatase Total Protein Albumin Globulin Albumin/Globulin Ratio POC Glucose 221 H 213 H 202 H 08/21/20 08/21/20 08/21/20 15:06 15:35 15:35 WBC 13.6 H RBC 4.29 Hgb 12.2 Hct 39.1 MCV 91.1 MCH 28.4 MCHC 31.2 L RDW Std Deviation 53.9 H RDW Coeff of Darrion 16.2 H Plt Count 311 MPV 10.5 Immature Gran % (Auto) Neut % (Auto) Lymph % (Auto) [facility] % (Auto) Eos % (Auto) Baso % (Auto) Absolute Neuts (auto) Absolute Lymphs (auto) Nucleated RBC % Specimen Type Sample Site pH Bicarbonate Actual Total CO2 Base Excess O2 Saturation O2 % ABG pCO2 ABG pO2 Respiration Rate O2 Delivery Device Vent Mode Tidal Volume Sodium 137 Potassium 5.3 H Chloride 102 Carbon Dioxide 30.0 Anion Gap 5 BUN 56 H Creatinine 0.99 Estim Creat Clear Calc 65.93 Est GFR (MDRD) Af Amer 79 Est GFR (MDRD) Non-Af 65 BUN/Creatinine Ratio 56.6 H Glucose 183 H Calcium 9.1 Phosphorus 3.0 Magnesium 1.9 Total Bilirubin AST ALT Alkaline Phosphatase Total Protein Albumin Globulin Albumin/Globulin Ratio POC Glucose 198 H 08/21/20 08/21/20 08/21/20 15:55 16:53 18:02 WBC RBC Hgb Hct MCV MCH MCHC RDW Std Deviation RDW Coeff of Darrion Plt Count MPV Immature Gran % (Auto) Neut % (Auto) Lymph % (Auto) [facility] % (Auto) Eos % (Auto) Baso % (Auto) Absolute Neuts (auto) Absolute Lymphs (auto) Nucleated RBC % Specimen Type Sample Site pH Bicarbonate Actual Total CO2 Base Excess O2 Saturation O2 % ABG pCO2 ABG pO2 Respiration Rate O2 Delivery Device Vent Mode Tidal Volume Sodium Potassium Chloride Carbon Dioxide Anion Gap BUN Creatinine Estim Creat Clear Calc Est GFR (MDRD) Af Amer Est GFR (MDRD) Non-Af BUN/Creatinine Ratio Glucose Calcium Phosphorus Magnesium Total Bilirubin AST ALT Alkaline Phosphatase Total Protein Albumin Globulin Albumin/Globulin Ratio POC Glucose 185 H 167 H 148 H 08/21/20 08/21/20 08/21/20 19:00 19:56 21:10 WBC RBC Hgb Hct MCV MCH MCHC RDW Std Deviation RDW Coeff of Darrion Plt Count MPV Immature Gran % (Auto) Neut % (Auto) Lymph % (Auto) [facility] % (Auto) Eos % (Auto) Baso % (Auto) Absolute Neuts (auto) Absolute Lymphs (auto) Nucleated RBC % Specimen Type Sample Site pH Bicarbonate Actual Total CO2 Base Excess O2 Saturation O2 % ABG pCO2 ABG pO2 Respiration Rate O2 Delivery Device Vent Mode Tidal Volume Sodium Potassium Chloride Carbon Dioxide Anion Gap BUN Creatinine Estim Creat Clear Calc Est GFR (MDRD) Af Amer Est GFR (MDRD) Non-Af BUN/Creatinine Ratio Glucose Calcium Phosphorus Magnesium Total Bilirubin AST ALT Alkaline Phosphatase Total Protein Albumin Globulin Albumin/Globulin Ratio POC Glucose 134 H 174 H 165 H 08/21/20 08/21/20 08/21/20 22:05 23:15 23:57 WBC RBC Hgb Hct MCV MCH MCHC RDW Std Deviation RDW Coeff of Darrion Plt Count MPV Immature Gran % (Auto) Neut % (Auto) Lymph % (Auto) [facility] % (Auto) Eos % (Auto) Baso % (Auto) Absolute Neuts (auto) Absolute Lymphs (auto) Nucleated RBC % Specimen Type Sample Site pH Bicarbonate Actual Total CO2 Base Excess O2 Saturation O2 % ABG pCO2 ABG pO2 Respiration Rate O2 Delivery Device Vent Mode Tidal Volume Sodium Potassium Chloride Carbon Dioxide Anion Gap BUN Creatinine Estim Creat Clear Calc Est GFR (MDRD) Af Amer Est GFR (MDRD) Non-Af BUN/Creatinine Ratio Glucose Calcium Phosphorus Magnesium Total Bilirubin AST ALT Alkaline Phosphatase Total Protein Albumin Globulin Albumin/Globulin Ratio POC Glucose 172 H 194 H 184 H 08/22/20 08/22/20 08/22/20 01:34 02:53 04:04 WBC RBC Hgb Hct MCV MCH MCHC RDW Std Deviation RDW Coeff of Darrion Plt Count MPV Immature Gran % (Auto) Neut % (Auto) Lymph % (Auto) [facility] % (Auto) Eos % (Auto) Baso % (Auto) Absolute Neuts (auto) Absolute Lymphs (auto) Nucleated RBC % Specimen Type Sample Site pH Bicarbonate Actual Total CO2 Base Excess O2 Saturation O2 % ABG pCO2 ABG pO2 Respiration Rate O2 Delivery Device Vent Mode Tidal Volume Sodium Potassium Chloride Carbon Dioxide Anion Gap BUN Creatinine Estim Creat Clear Calc Est GFR (MDRD) Af Amer Est GFR (MDRD) Non-Af BUN/Creatinine Ratio Glucose Calcium Phosphorus Magnesium Total Bilirubin AST ALT Alkaline Phosphatase Total Protein Albumin Globulin Albumin/Globulin Ratio POC Glucose 177 H 145 H 142 H 08/22/20 08/22/20 08/22/20 04:20 04:20 05:00 WBC 11.7 H RBC 4.11 L Hgb 11.8 L Hct 37.7 MCV 91.7 MCH 28.7 MCHC 31.3 L RDW Std Deviation 54.8 H RDW Coeff of Darrion 16.2 H Plt Count 266 MPV 9.9 Immature Gran % (Auto) 0.800 Neut % (Auto) 64.6 Lymph % (Auto) 27.3 [facility] % (Auto) 6.8 Eos % (Auto) 0.1 Baso % (Auto) 0.4 Absolute Neuts (auto) 7.6 Absolute Lymphs (auto) 3.20 Nucleated RBC % 0 Specimen Type Sample Site pH Bicarbonate Actual Total CO2 Base Excess O2 Saturation O2 % ABG pCO2 ABG pO2 Respiration Rate O2 Delivery Device Vent Mode Tidal Volume Sodium 140 Potassium 3.8 Chloride 101 Carbon Dioxide 33.0 H Anion Gap 6 BUN 53 H Creatinine 0.80 Estim Creat Clear Calc 81.59 Est GFR (MDRD) Af Amer 101 Est GFR (MDRD) Non-Af 83 BUN/Creatinine Ratio 66.4 H Glucose 149 H Calcium 8.8 Phosphorus Magnesium Total Bilirubin 0.20 AST 19 ALT 14 Alkaline Phosphatase 59 Total Protein 6.9 Albumin 2.6 L Globulin 4.3 H Albumin/Globulin Ratio 0.6 L POC Glucose 146 H 08/22/20 08/22/20 08/22/20 05:59 07:00 07:56 WBC RBC Hgb Hct MCV MCH MCHC RDW Std Deviation RDW Coeff of Darrion Plt Count MPV Immature Gran % (Auto) Neut % (Auto) Lymph % (Auto) [facility] % (Auto) Eos % (Auto) Baso % (Auto) Absolute Neuts (auto) Absolute Lymphs (auto) Nucleated RBC % Specimen Type Sample Site pH Bicarbonate Actual Total CO2 Base Excess O2 Saturation O2 % ABG pCO2 ABG pO2 Respiration Rate O2 Delivery Device Vent Mode Tidal Volume Sodium Potassium Chloride Carbon Dioxide Anion Gap BUN Creatinine Estim Creat Clear Calc Est GFR (MDRD) Af Amer Est GFR (MDRD) Non-Af BUN/Creatinine Ratio Glucose Calcium Phosphorus Magnesium Total Bilirubin AST ALT Alkaline Phosphatase Total Protein Albumin Globulin Albumin/Globulin Ratio POC Glucose 147 H 142 H 135 H 08/22/20 08/22/20 08/22/20 09:01 10:00 11:12 WBC RBC Hgb Hct MCV MCH MCHC RDW Std Deviation RDW Coeff of Darrion Plt Count MPV Immature Gran % (Auto) Neut % (Auto) Lymph % (Auto) [facility] % (Auto) Eos % (Auto) Baso % (Auto) Absolute Neuts (auto) Absolute Lymphs (auto) Nucleated RBC % Specimen Type Sample Site pH Bicarbonate Actual Total CO2 Base Excess O2 Saturation O2 % ABG pCO2 ABG pO2 Respiration Rate O2 Delivery Device Vent Mode Tidal Volume Sodium Potassium Chloride Carbon Dioxide Anion Gap BUN Creatinine Estim Creat Clear Calc Est GFR (MDRD) Af Amer Est GFR (MDRD) Non-Af BUN/Creatinine Ratio Glucose Calcium Phosphorus Magnesium Total Bilirubin AST ALT Alkaline Phosphatase Total Protein Albumin Globulin Albumin/Globulin Ratio POC Glucose 134 H 120 H 136 H 08/22/20 08/22/20 08/22/20 13:19 13:21 17:20 WBC RBC Hgb Hct MCV MCH MCHC RDW Std Deviation RDW Coeff of Darrion Plt Count MPV Immature Gran % (Auto) Neut % (Auto) Lymph % (Auto) [facility] % (Auto) Eos % (Auto) Baso % (Auto) Absolute Neuts (auto) Absolute Lymphs (auto) Nucleated RBC % Specimen Type Sample Site pH Bicarbonate Actual Total CO2 Base Excess O2 Saturation O2 % ABG pCO2 ABG pO2 Respiration Rate O2 Delivery Device Vent Mode Tidal Volume Sodium Potassium Chloride Carbon Dioxide Anion Gap BUN Creatinine Estim Creat Clear Calc Est GFR (MDRD) Af Amer Est GFR (MDRD) Non-Af BUN/Creatinine Ratio Glucose Calcium Phosphorus Magnesium Total Bilirubin AST ALT Alkaline Phosphatase Total Protein Albumin Globulin Albumin/Globulin Ratio POC Glucose 317 H 290 H 314 H 08/22/20 08/23/20 08/23/20 21:19 01:34 05:03 WBC RBC Hgb Hct MCV MCH MCHC RDW Std Deviation RDW Coeff of Darrion Plt Count MPV Immature Gran % (Auto) Neut % (Auto) Lymph % (Auto) [facility] % (Auto) Eos % (Auto) Baso % (Auto) Absolute Neuts (auto) Absolute Lymphs (auto) Nucleated RBC % Specimen Type Sample Site pH Bicarbonate Actual Total CO2 Base Excess O2 Saturation O2 % ABG pCO2 ABG pO2 Respiration Rate O2 Delivery Device Vent Mode Tidal Volume Sodium Potassium Chloride Carbon Dioxide Anion Gap BUN Creatinine Estim Creat Clear Calc Est GFR (MDRD) Af Amer Est GFR (MDRD) Non-Af BUN/Creatinine Ratio Glucose Calcium Phosphorus Magnesium Total Bilirubin AST ALT Alkaline Phosphatase Total Protein Albumin Globulin Albumin/Globulin Ratio POC Glucose 368 H 269 H 275 H 08/23/20 08/23/20 05:50 05:50 WBC 10.9 RBC 4.45 Hgb 12.5 Hct 40.3 MCV 90.6 MCH 28.1 MCHC 31.0 L RDW Std Deviation 51.9 H RDW Coeff of Darrion 15.7 H Plt Count 258 MPV 9.7 Immature Gran % (Auto) 0.700 Neut % (Auto) 66.5 Lymph % (Auto) 25.3 [facility] % (Auto) 6.6 Eos % (Auto) 0.4 Baso % (Auto) 0.5 Absolute Neuts (auto) 7.3 Absolute Lymphs (auto) 2.76 Nucleated RBC % 0 Specimen Type Sample Site pH Bicarbonate Actual Total CO2 Base Excess O2 Saturation O2 % ABG pCO2 ABG pO2 Respiration Rate O2 Delivery Device Vent Mode Tidal Volume Sodium Pending Potassium Pending Chloride Pending Carbon Dioxide Pending Anion Gap Pending BUN Pending Creatinine Pending Estim Creat Clear Calc Est GFR (MDRD) Af Amer Pending Est GFR (MDRD) Non-Af Pending BUN/Creatinine Ratio Pending Glucose Pending Calcium Pending Phosphorus Magnesium Total Bilirubin Pending AST Pending ALT Pending Alkaline Phosphatase Pending Total Protein Pending Albumin Pending Globulin Albumin/Globulin Ratio POC Glucose Microbiology 08/19/20 23:25 Blood Culture (Wb) - Right Hand Blood Culture - Preliminary No growth in 48 hours. 08/19/20 21:00 Blood Culture (Wb) - Arm Left Blood Culture - Preliminary No growth in 48 hours. 08/20/20 06:10 Sputum, Induced/Lukens Gram Stain - Final 08/20/20 06:10 Sputum, Induced/[place]ens Respiratory Culture - Preliminary Yeast Like Organism 08/19/20 22:19 Urine, Clean Catch Urine Culture - Final Culture exhibits no growth. Clinical Impression(s) from Imaging Studies Chest X-Ray 08/19/20 22:00 IMPRESSION: Pulmonary edema. at 2228 Reported and signed by: Caio Bruno MD Electronically Signed: Caio Bruno MD at 22:27 EDT Tel , Service support , Chest CT 08/19/20 23:19 IMPRESSION: No acute thoracic disease. Hepatomegaly. Individualized dose optimization techniques were used for this CT. at 0200 Reported and signed by: Caio Bruno MD Electronically Signed: Caio Bruno MD at 1:59 EDT Tel , Service support , Brain CT 08/19/20 23:31 IMPRESSION: Negative Brain CT without contrast. Individualized dose optimization techniques were used for this CT. at 0157 Reported and signed by: Caio Bruno MD Electronically Signed: Caio Bruno MD at 1:56 EDT Tel , Service support , Chest X-Ray 08/20/20 06:10 IMPRESSION: Ill-defined subpleural groundglass opacities are seen more prominent in the lung bases , may represent atypical pneumonia or viral pneumonia. NG tube is seen its tip is at the GE junction and can be advanced 10 cm. Electronically Signed: Patti Jensen, at 8:05 EDT Tel , Service support , ADDENDUM: 08/20/20 0821 IMPRESSION: Ill-defined subpleural groundglass opacities are seen more prominent in the lung bases , may represent atypical pneumonia or viral pneumonia. NG tube is seen its tip is at the GE junction and can be advanced 10 cm. N.B. : The above information has been verbally conveyed by Patti Jensen to [place] Dumont MD, on 08/20/2020 08:14:40 (ET). Electronically Signed: Patti Elizabethan, at 8:05 EDT Tel , Service support , Medical Necessity - Tobacco Use Smoking Status: Current every day smoker Assessment/Plan All Active Problems (Last Reviewed 08/20/20 @ 03:[address] Chris Gill MD) Opiate overdose (Resolved) Cellulitis of leg (Acute) KERRY (acute kidney injury) (Acute) Acute encephalopathy (Acute) Sepsis (Acute) CAP (community acquired pneumonia) (Acute) Respiratory failure with hypoxia (Acute) RECOMMENDATIONS: 1. Proceed with a trial of extubation this morning. Plan to extubate directly to BiPAP with a pressure support of 18/12 centimeters of water. 2. Continue empiric antimicrobials to complete a 7-day treatment course. 3. Wean Precedex off completely this morning. Start scheduled BuSpar 10 mg twice daily. 4. Continue to wean supplemental oxygen as tolerated. 5. Continue Eliquis per home regimen. 6. Continue Lantus and sliding scale insulin coverage. 7. Perform bedside swallow evaluation prior to advancing diet. 8. Continue gentle diuresis as tolerated by hemodynamics and renal function. 9. Encourage incentive spirometer use and mobilize patient as tolerated. IMPRESSIONS: 1. Acute on chronic combined respiratory failure Improved. Suspect that this is secondary to illicit opiate medication use coupled with alveolar hypoventilation secondary to obesity and poor outpatient compliance with the use of supplemental oxygen and noninvasive positive pressure ventilatory support. The patient does not have obstructive lung disease, based upon her last pulmonary function studies. She is currently on antimicrobials for possible left lower lobe pneumonia. I do not see any evidence of lower extremity cellulitis. For now, we will plan to continue current supportive measures. She is currently a candidate for a trial of extubation this morning. Once extubated, she will be transitioned directly to BiPAP therapy for several hours. We will continue to wean supplemental oxygen as tolerated. Diuretic therapy will be continued as tolerated by hemodynamics and renal function. Precedex will be weaned off completely this morning, with plans to restart BuSpar 10 mg twice daily. Bedside swallow evaluation can be completed, with plans to advance diet accordingly. Encourage incentive spirometer use and mobilize patient as tolerated. 2. Severe sepsis with concern for left lower lobe pneumonia We will plan to continue empiric antimicrobials, with plans to complete a 7-day treatment course. The patient remains hemodynamically stable. 3. Acute kidney injury Resolved. Likely multifactorial in etiology and related to #1 coupled with p ossible vascular congestion. The patient's renal function is improving with gentle diuresis. This will be continued as tolerated by hemodynamics and renal function. Continue to monitor urine output accordingly. No current indication for renal replacement therapy. 4. Poorly controlled diabetes mellitus Continue Lantus and sliding scale insulin coverage. We will continue to wean steroids as tolerated. 5. Encephalopathy Improved. Likely secondary to hypercapnia in the setting of opiate pain medication use coupled with alveolar hypoventilation from obesity. Plan to continue current supportive measures as noted above. 6. Super morbid obesity/tobacco dependency/obstructive sleep apnea with Pap noncompliance/history of PE Complicates care, management, recovery and prognosis. Physical therapy to work with the patient. BiPAP therapy will be restarted once the patient is able to be successfully extubated. TIME: 39 minutes of critical care time, independent of procedures, was spent addressing the patient's acute on chronic combined respiratory failure, severe sepsis, acute kidney injury, poorly controlled diabetes mellitus, encephalopathy, review of all data and collaboration with the care team. ([id number]) [id number] Critical care first hour
[2020-08-23 06:13] LABS: ALB/GLOB Ratio 0.6 RATIO (0.9-2.4); AST(SGOT) 10 U/L (15-37); Alanine Aminotransfer ALT/SGPT 15 U/L (13-56); Albumin, Serum 2.7 g/dL (3.2-5.0); Alkaline Phosphatase 61 U/L (45-117); Anion Gap 9 (5-15); BUN 44 mg/dL (7-18); BUN/Creat Ratio 50.7 RATIO (10-20); Calcium,Total 8.8 mg/dL (8.5-10.1); Chloride 100 mmol/L (98-107); Creatinine, Serum 0.87 mg/dL (0.55-1.02); EST Glomerular Filtration Rate 76 mL/min (>60); Est Glom Filt Rate - Afr Amer 92 mL/min (>60); Estimated Creatinine Clearance 75.03 ml/min; Globulin 4.4 g/dL (2.2-4.2); Glucose 268 mg/dL (74-106); Potassium 3.7 mmol/L (3.5-5.1); Protein, Total 7.1 g/dL (6.4-8.2); Sodium Level 139 mmol/L (136-145)
--- NOTE | 2020-08-23 06:59 | PN_ITS ---
Subjective: Patient transitioned day prior to Precedex with de-escalation FiO2 with some agitation overnight requiring addition of Seroquel. Patient with significant elevation of her blood pressures following transition to Precedex with requirement of several additional regimens with improvement since the day prior. Spontaneous breathing trial successful in a.m. Blood sugars 200-300 range following transition off of insulin drip to subcu regimen. Patient requesting pain medication secondary to bilateral lower extremity peripheral neuropathy which is now which she admits she takes narcotics from other individuals to treat. Patient denies fevers, chills, nausea, emesis, abdominal pain, chest pain or recurrent or worsened dyspnea. Objective: Physical Examination: General: Awakens to stimuli, intermittently alert, Precedex being weaned off, recent extubation, oriented x3 including person place and some recent events, r emains cooperative, seated upright in the ICU bed, fatigued and still mildly lethargic. Skin: normal color, turgor, no icterus, cyanosis bilateral lower extremity venous stasis disease, no obvious evidence of cellulitis. HEENT: AT/NC, EOMI, PERRLA, mildly dry MM, status post extubation. Lungs: Diminished breath sounds bilaterally, still mildly rhonchorous and expiratory wheeze although improved from day prior, recent extubation. Heart: Regular rate and rhythm; no gallop, rub audible. Abdomen: soft, NTTP, ND, normal BS, no HSM. Extremities: no cyanosis, clubbing, no lower extremity or residual hand edema, chronic venous stasis skin changes. Neurological: patient awake, alert, oriented as noted; cognitive function nearing baseline intact given recent extubation, still weaning off of Precedex; pupils equally reactive to light and accomodation; cranial nerves II-XII grossly normal, moving all 4 extremities, no focal deficits, strength severely global decreased. Psychiatric: affect appears fatigued, being weaned off sedation, was noted to previously be anxious, calm currently, no obvious evidence of depression feelings. Vitals/I&O's: Vital Signs Temp Pulse Resp BP Pulse Ox 100.5 F H 75 18 149/81 H 100 08/23/20 06:00 08/23/20 06:00 08/23/20 06:00 08/23/20 06:00 08/23/20 06:00 Oxygen Flow Rate (L/min) 6 Oxygen Delivery Method Mechanical Ventilator Weight: 353 lb 2.888 oz Body Mass Index (BMI) 62.1 Finger Stick Blood Glucose 120 Intake and Output for Last 24 Hours 08/21/20 08/22/20 08/23/20 23:59 23:59 23:59 Intake Total 3582.90 / 3803.30 3997.61 / 4693.71 1154.58 / 1154.58 Output Total 3940 / 4215 4900 / 5450 1750 / 1750 Balance -357.10 / -411.70 -902.39 / -756.29 -595.42 / -595.42 Microbiology Past 72 Hours 08/19/20 23:25 Blood Culture (Wb) - Right Hand Blood Culture - Preliminary No growth in 48 hours. 08/19/20 21:00 Blood Culture (Wb) - Arm Left Blood Culture - Preliminary No growth in 48 hours. 08/20/20 06:10 Sputum, Induced/Lukens Gram Stain - Final 08/20/20 06:10 Sputum, Induced/Lukens Respiratory Culture - Preliminary Yeast Like Organism 08/19/20 22:19 Urine, Clean Catch Urine Culture - Final Culture exhibits no growth. 08/19/20 22:19 Urine Catheter - Choe Streptococcus pneumoniae Antigen (M - Final 08/19/20 22:19 Urine Catheter - Choe Legionella Antigen - Final Laboratory Results 08/22/20 05:00: POC Glucose 146 H 08/22/20 05:59: POC Glucose 147 H 08/22/20 07:00: POC Glucose 142 H 08/22/20 07:56: POC Glucose 135 H 08/22/20 09:01: POC Glucose 134 H 08/22/20 10:00: POC Glucose 120 H 08/22/20 11:12: POC Glucose 136 H 08/22/20 13:19: POC Glucose 317 H 08/22/20 13:21: POC Glucose 290 H 08/22/20 17:20: POC Glucose 314 H 08/22/20 21:19: POC Glucose 368 H 08/23/20 01:34: POC Glucose 269 H 08/23/20 05:03: POC Glucose 275 H 08/23/20 05:50: WBC 10.9, RBC 4.45, Hgb 12.5, Hct 40.3, MCV 90.6, MCH 28.1, MCHC 31.0 L, RDW Std Deviation 51.9 H, RDW Coeff of Darrion 15.7 H, Plt Count 258, MPV 9.7, Immature Gran % (Auto) 0.700, Neut % (Auto) 66.5, Lymph % (Auto) 25.3, Gates % (Auto) 6.6, Eos % (Auto) 0.4, Baso % (Auto) 0.5, Absolute Neuts (auto) 7.3, Absolute Lymphs (auto) 2.76, Nucleated RBC % 0 08/23/20 05:50: Sodium 139, Potassium 3.7, Chloride 100, Carbon Dioxide 30.0, Anion Gap 9, BUN 44 H, Creatinine 0.87, Estim Creat Clear Calc 75.03, Est GFR (MDRD) Af Amer 92, Est GFR (MDRD) Non-Af 76, BUN/Creatinine Ratio 50.7 H, Glucose 268 H, Calcium 8.8, Total Bilirubin 0.40, AST 10 L, ALT 15, Alkaline Phosphatase 61, Total Protein 7.1, Albumin 2.7 L, Globulin 4.4 H, Albumin/Globulin Ratio 0.6 L Current Medications Acetaminophen (Tylenol Liquid) 650 mg GT Q6H PRN PRN PRN Reason: PAIN SCORE 1-10, TEMP > 100.7F Last Admin: 08/22/20 17:18 Dose: 650 mg Documented by: Albuterol Sulfate (Ventolin Aerosols) 2.5 mg INHALATION Q2H PRN PRN PRN Reason: SOB/Wheezing Albuterol/Ipratropium (Duoneb) 3 ml INHALATION Q4H.RT [facility] Last Admin: 08/23/20 02:17 Dose: 3 ml Documented by: Apixaban (Eliquis) 5 mg GT BID [facility] Last Admin: 08/22/20 19:48 Dose: 5 mg Documented by: Aspirin (Aspirin, Baby) 81 mg GT DAILY@0800 [facility] Atorvastatin Calcium (Lipitor) 40 mg GT QHS [facility] Last Admin: 08/22/20 20:00 Dose: 40 mg Documented by: Buspirone HCl (Buspar) 10 mg PO BID [facility] Chlorhexidine Gluconate () 15 ml PO BID [facility] Last Admin: 08/22/20 19:48 Dose: 15 ml Documented by: Clonidine (Catapres) 0.3 mg GT BID [facility] Dextrose (D50w Syringe) 0 gm IV X1 PRN; Protocol PRN Reason: Hypoglycemia Diltiazem HCl (Cardizem) 60 mg GT Q6 [facility] Last Admin: 08/23/20 04:56 Dose: 60 mg Documented by: Famotidine (Pepcid) 20 mg GT BID [facility] Last Admin: 08/22/20 19:49 Dose: 20 mg Documented by: Furosemide (Lasix) 40 mg IV BID@1000,1800 [facility] Last Admin: 08/22/20 17:18 Dose: 40 mg Documented by: Gabapentin (Neurontin) 900 mg GT TID [facility] Last Admin: 08/23/20 05:39 Dose: 900 mg Documented by: Glucagon () 1 mg IM .X1 PRN PRN Reason: Hypoglycemia Hydralazine HCl (Apresoline) 50 mg GT TID [facility] Last Admin: 08/23/20 04:55 Dose: 50 mg Documented by: Hydrochlorothiazide (Hctz) 25 mg GT DAILY [facility] Last Admin: 08/22/20 15:21 Dose: 25 mg Documented by: Sodium Chloride () 250 mls @ 15 mls/hr IV .[id number] PRN PRN Reason: Additional IVPB Infusion Last Infusion: 08/21/20 14:37 Dose: Infused Documented by: Fentanyl Citrate 1,000 mcg/ (Sodium Chloride) 100 mls @ 2.5 mls/hr CONT INF .Q40H [facility]; Protocol Last Titration: 08/23/20 06:00 Dose: 0 mcg/hr, 0 mls/hr Documented by: Ceftriaxone Sodium 2 gm/ (Sodium Chloride) 50 mls @ 100 mls/hr IV Q24 [facility] Last Infusion: 08/22/20 10:39 Dose: Infused Documented by: Insulin Glargine (Lantus (Bkc)) 80 units SC BID [facility] Last Admin: 08/22/20 21:21 Dose: 80 u Documented by: Insulin Human Lispro (Humalog Kwikpen (Bkc)) 0 unit SC Q4 [facility]; Protocol Last Admin: 08/23/20 05:04 Dose: 9 u Documented by: Insulin Human Lispro (Humalog Kwikpen (Bkc)) 5 unit SC Q4 [facility] Last Admin: 08/23/20 05:04 Dose: 5 u Documented by: Labetalol HCl (Trandate) 20 mg IV Q4H PRN PRN PRN Reason: BLOOD PRESSURE ELEVATION Last Admin: 08/23/20 01:26 Dose: 20 mg Documented by: Lisinopril (Zestril) 20 mg GT DAILY [facility] Methylprednisolone (Solu-Medrol) 40 mg IV DAILY [facility] Last Admin: 08/22/20 10:03 Dose: 40 mg Documented by: Naloxone HCl (Narcan) 0.02 mg IV Q1M PRN PRN Reason: RR <10 and pt unresponsive Ondansetron HCl (Zofran) 4 mg IV Q8H PRN PRN PRN Reason: NAUSEA/VOMITING Last Admin: 08/20/20 03:53 Dose: 4 mg Documented by: Senna/Docusate Sodium (Senokot-S, Gill-Colace) 2 tablet GT BID [facility] Last Admin: 08/22/20 19:49 Dose: 2 tablet Documented by: Sodium Chloride () 10 - 40 ml IV UD PRN PRN Reason: SALINE FLUSH Last Admin: 08/22/20 19:50 Dose: 20 ml Documented by: STROKE Vital Signs/Narrative: Vital Signs Temp Pulse Resp BP Pulse Ox 08/23/20 06:00 100.5 F H 75 18 149/81 H 100 08/23/20 05:01 72 25 H 96 08/23/20 05:00 100.5 F H 79 20 H 185/93 H 98 08/23/20 04:55 82 08/23/20 04:00 100.5 F H 70 18 192/85 H 92 08/23/20 03:59 67 08/23/20 03:00 100.5 F H 67 18 185/91 H 94 Medical Necessity - Tobacco Use Smoking Status: Current every day smoker Assessment/Plan All Active Problems (Last Reviewed 08/20/20 @ 03:[address] Chris Gill MD) Opiate overdose (Resolved) Cellulitis of leg (Acute) KERRY (acute kidney injury) (Acute) Acute encephalopathy (Acute) Sepsis (Acute) CAP (community acquired pneumonia) (Acute) Respiratory failure with hypoxia (Acute) The patient is a 45 y/o F w/ PMHx: Diabetes mellitus type II with neuropathy, Morbid Obesity, Anxiety and Depression, Hx NSTEMI, CAD, HTN, HLD, Chronic Hypoxic Respiratory Failure (6L NC), Hx PE, Tobacco use, LOGAN, GERD, Chronic COPD who presents to the [facility] ED on 08/19/20 with history of unresponsiveness and hypoxia. 1. Acute Severe Sepsis secondary to Acute on Chronic Hypoxic and Hypercarbic Respiratory Failure, Multifactorial, Narcotic Overdose, Hypoventilation Syndrome, Worsening Pulmonary HTN, Acute on Chronic COPD Exacerbation, Possible Volume Overload, Possible LLL CAP and Possible LLE Cellulitis: ED presentation with CBC with WBC 14.2, hemoglobin 1.7, platelet 259 with left shift, ABG at that time with pH 7.17, bicarb 20.3, O2 saturation 91, PCO2 78, PO2 80 with placement on BiPAP at that time and eventual intubation following transition to the ICU, CMP with sodium 132, chloride 97, BUN/creatinine 49/2.12, glucose 338, troponin less than 0.015, BNP 38, urine drug screen with positive opiates, CXR upon presentation with concern for possible pulmonary edema with follow-up CT chest with no acute thoracic disease, evidence hepatomegaly, some interstitial edema and pulmonary venous congestion with atelectasis but not severe appearing. Patient admitted to the ICU, intubated following admission, failed SBT 08/22/20 AM with increased secretions, elevated HR, elevated RR. Continued intubation with addition precedex per ICU discretion 08/22/20, continued ATC duonebs, PRN albuterol, continued IV solumedrol but weaned to 40 mg IV daily, maintained on IV Rocephin and Azithromycin, maintained on tube feeds with nutrition consultation, IV lasix for concern for possible volume overload ongoing, HOB, IS parameters w/ sputum cultures alpha hemolytic strep noted, negative urine antigens, negative COVID testing. 08/23/20 excessively extubated, speech evaluation with clearance, transitioned to oral lasix home regimen, plan oral prednisone transition 08/24/20 pending re-evaluation. Patient urine drug screen as noted with positive opiates, admits to using narcotics from other individuals for her peripheral neuropathy. Consulted case management to assist with outpatient substance abuse. 2. Acute Encephalopathy secondary to #1: Patient with several etiologies for encephalopathy including carbon dioxide narcosis, morbid obesity, hyperglycemia, acute kidney injury, acute COPD exacerbation and questionable pneumonia, continue treatments as noted, weaning off Precedex, status post extubation successfully 08/23/2020. 3. Acute kidney injury: Secondary to acute presentation as noted #1, #2. Admission BUN/Cr 49/2.12, prior baseline creatinine noted to be 0.7-0.9. Given patient volume overload and congestion ongoing diuresis, 08/20/2020 BUN/creatinine 58/1.24-->08/22/20 BUN/Cr 53/0.80-->08/23/20 BUN/Cr 44/0.87. 4. Hyperosmolar nonketotic state secondary to uncontrolled insulin-dependent diabetes mellitus type II w/ Neuropathy: Admission blood sugar significantly elevated especially with usage of steroid therapies, hemoglobin A1c 11.2, initially maintained on insulin drip secondary to significant hyperglycemia with initiation of tube feeds, decreasing BS with eventual transition off of insulin drip with transition to subcu insulin, ongoing 200-300 range blood sugars, will increase from 80 units subcu twice daily to 90 units subcu twice daily and increase scheduled short acting to 10 unit with meals in addition to continued insulin sliding scale with before meals at bedtime coverage. Nutrition consulted for education and teaching. Restarting home gabapentin. 5. Hypertension: Patient normally on diltiazem, hydrochlorothiazide, lisinopril, held initially, restarted once transitioned to precedex, significantly elevated requiring PRN IV BB, clonidine, hydralazine. Now s/p extubation, BP improved, will de-escalate to home regimen only with PRN oral hydralazine. Will also transition off IV lasix to home lasix 40 mg BID regimen. 6. Hyperlipidemia: Continue home statin regimen. 7. GERD: Maintained on famotidine. 8. History of pulmonary embolism: Restarted home Eliquis therapy, d/c therapeutic Lovenox. 9. Morbid Obesity: Weight loss and lifestyle changes encouraged, nutrition consulted. 10. Tobacco Abuse: Encouraged cessation, inpatient consultation per RT, NR if desired. 11. LOGAN: Noncompliant with CPAP, will necessitate likely BIPAP scheduled and PRN. 12. DVT prophylaxis: SCDs, resume home eliquis, d/c therapeutic Lovenox. Inpatient E&M: [id number] [facility] L3
[2020-08-23] MEDS: 0.9% Saline Lock 10 ML Syringe IV (08:25)
[2020-08-23] MEDS: Furosemide 40 MG/4 ML Vial IV (12:01)
[2020-08-23] MEDS: Aspirin 81 MG TAB.CHEW GT (12:27)
[2020-08-23] MEDS: busPIRone 5 MG Tablet 10 MG PO ×2 (12:27→21:28)
[2020-08-23] MEDS: APIXABAN 5 MG TABLET GT (12:27)
[2020-08-23] MEDS: Famotidine 20 MG Tablet GT (12:28)
[2020-08-23] MEDS: hydroCHLOROthiazide 25 MG Tablet GT (12:28)
[2020-08-23] MEDS: Lisinopril 20 MG Tablet GT (12:29)
--- NOTE | 2020-08-23 14:30 | CASEMGMT ---
Social Work SW met with pt and introduced self and role of SW. SW reviewed discharge plan with pt including information from therapy today. Pt stating she will be able to return home at time of discharge and denies any need for SNF. SW provided list of in network facilities but pt is adamant that she plans to return home with daughter Naveed Gordon. Per pt, Naveed does not work and can assist pt in any way needed. SW discussed possibility of need for two assist and pt states, there are 1000 people that would be willing to help. SW discussed home health with pt and she is agreeable if this is needed. Pt stating she does not have a walker but may need one. She confirms she is on 4L continuous oxygen from [employer] and has a bipap. However, pt does not have a bipap mask and [employer] will not provide another due to non payment of a bill. SW spoke with pt about positive opiates upon arrival to ED. Pt admits that she takes Percocet for pain and does not have a prescription but gets the medications on the street. Pt denies any other illicit drug use. Pt stating she does not have a problem, but took the medication for pain and she does not need assistance with stopping as her 7 year old grandson found her and was very scared. Pt stating she will not take Percocet again as she doesn't want this to happen again. Pt did accept written information from 180. Update provided to Brandy BARROW. Plan: Home with home health services. PER Friedman
[2020-08-23 15:10] LABS: Bedside Glucose 249 mg/dL (70-110)
[2020-08-23 17:26] LABS: Bedside Glucose 323 mg/dL (70-110)
[2020-08-23] MEDS: Insulin Lispro 100 UNIT/ML INSULN.PEN 10 UNIT SC (17:28)
[2020-08-23] MEDS: Gabapentin 300 MG Capsule 900 MG PO (17:30)
[2020-08-23] MEDS: dilTIAZem 60 MG Tablet PO (17:31)
[2020-08-23] MEDS: Furosemide 40 MG Tablet PO (17:36)
[2020-08-23] MEDS: Famotidine 20 MG Tablet PO (21:07)
[2020-08-23] MEDS: Atorvastatin Calcium 40 MG Tablet PO (21:09)
[2020-08-23] MEDS: APIXABAN 5 MG TABLET PO (21:09)
[2020-08-23 21:15] LABS: Bedside Glucose 307 mg/dL (70-110)
[2020-08-24] VITALS (11 sets, daily range): BP systolic 124–144; BP diastolic 49–62; PULSE 60–74; RESP 12–20; TEMP 36.9–37.2; O2SAT 94–100
[2020-08-24] MEDS: dilTIAZem 60 MG Tablet PO ×3 (00:13→10:45)
[2020-08-24 04:23] LABS: Absolute Lymphocyte Count 3.21 X10^3/uL (0.83-4.51); Absolute Neutrophil Count 9.8 X10^3/uL (2.0-7.7); Basophil# 0.07 X10^3/uL; Basophil% 0.5 % (0-1); Eosinophil# 0.11 X10^3/uL; Eosinophils% 0.8 % (0-5); Hematocrit 42.5 % (37-47); Lymphocyte # 3.21 X10^3/ul (4.0); Lymphocyte % 22.7 % (19-41); Mean Corp Hgb Conc 30.6 g/dL (32-36); Mean Corpuscular Volume 91.4 fL (81-99); Mean Platelet Vol. 9.4 fl (6.2-12.0); Monocyte# 0.84 X10^3/uL; Monocyte% 5.9 % (0-10); NRBC Flagged by Analyzer 0 % (0-5); Neutrophil # 9.78 X10^3/uL (2.7-7.7); Neutrophil % 69.3 % (47-70); Platelet Count 276 K/mm3 (150-450); RBC Distribution Width CV 15.6 % (11.6-14.6); RBC Distribution Width SD 51.8 fl (35.1-43.9); Red Blood Count 4.65 M/mm3 (4.2-5.4); White Blood Count 14.1 K/mm3 (4.4-11.0)
[2020-08-24 04:37] LABS: ALB/GLOB Ratio 0.7 RATIO (0.9-2.4); AST(SGOT) 26 U/L (15-37); Alanine Aminotransfer ALT/SGPT 25 U/L (13-56); Alkaline Phosphatase 62 U/L (45-117); Anion Gap 5 (5-15); BUN 30 mg/dL (7-18); BUN/Creat Ratio 37.6 RATIO (10-20); Calcium,Total 9.5 mg/dL (8.5-10.1); Chloride 94 mmol/L (98-107); EST Glomerular Filtration Rate 83 mL/min (>60); Est Glom Filt Rate - Afr Amer 101 mL/min (>60); Estimated Creatinine Clearance 81.59 ml/min; Globulin 4.5 g/dL (2.2-4.2); Glucose 175 mg/dL (74-106); Potassium 3.7 mmol/L (3.5-5.1); Protein, Total 7.5 g/dL (6.4-8.2); Sodium Level 136 mmol/L (136-145)
--- NOTE | 2020-08-24 06:18 | PN_ITS ---
Subjective: The patient was seen and examined at the bedside this morning. Events from the last 24 hours have been reviewed. The patient is currently afebrile, hemodynamically stable and maintaining appropriate oxygen saturations on 4 L/min via nasal cannula, which is reportedly her baseline at home. The patient is currently documented to be overall net -5.2 L for the hospital admission. Objective: The patient's most recent lab work, culture data and imaging studies have all been personally reviewed. Strep and urine Legionella antigens were negative. Coronavirus PCR was negative. Blood, urine and sputum cultures have been unrevealing to date. General: Alert, Cooperative, No apparent distress HEENT: Atraumatic, Normocephalic Oral: Moist Mucosa, No Gingival or Mucosal Lesions/ Ulcerations Neck: Supple, No Nodes, Trachea Midline Lungs: No rhonchi, No wheeze, No rales, Diminished Cardiovascular: Regular rate, Regular Rhythm Abdomen: Bowel Sounds Present, Soft, Non Tender, Obese Extremities: No clubbing, No cyanosis, No edema Skin: - - No significant change from previous Musculoskeletal: No Muscle Wasting Lymphatic: No Cervical, Supraclavicular, or Inguinal Adenopathy Neurological: Cranial nerves II-XII grossly intact, Neuro grossly intact Psych/Mental Status: Normal Affect, Appropriate Vital Signs Temp Pulse Resp BP Pulse Ox 98.4 F 61 18 124/49 H 99 08/24/20 06:00 08/24/20 06:00 08/24/20 06:00 08/24/20 06:00 08/24/20 06:00 Oxygen Flow Rate (L/min) 4 Oxygen Delivery Method Bi-pap Weight: 338 lb 10.08 oz Body Mass Index (BMI) 62.1 Finger Stick Blood Glucose 120 Intake and Output for Last 24 Hours 08/22/20 08/23/20 08/24/20 23:59 23:59 23:59 Intake Total 3997.61 / 4693.71 1905.60 / 2005.60 325 / 325 Output Total 4900 / 5450 5700 / 6000 875 / 875 Balance -902.39 / -756.29 -3794.40 / -3994.40 -550 / -550 Labs (Last 48 Hours) 08/22/20 08/22/20 08/22/20 05:00 05:59 07:00 WBC RBC Hgb Hct MCV MCH MCHC RDW Std Deviation RDW Coeff of Darrion Plt Count MPV Immature Gran % (Auto) Neut % (Auto) Lymph % (Auto) [place] % (Auto) Eos % (Auto) Baso % (Auto) Absolute Neuts (auto) Absolute Lymphs (auto) Nucleated RBC % Sodium Potassium Chloride Carbon Dioxide Anion Gap BUN Creatinine Estim Creat Clear Calc Est GFR (MDRD) Af Amer Est GFR (MDRD) Non-Af BUN/Creatinine Ratio Glucose Calcium Total Bilirubin AST ALT Alkaline Phosphatase Total Protein Albumin Globulin Albumin/Globulin Ratio POC Glucose 146 H 147 H 142 H 08/22/20 08/22/20 08/22/20 07:56 09:01 10:00 WBC RBC Hgb Hct MCV MCH MCHC RDW Std Deviation RDW Coeff of Darrion Plt Count MPV Immature Gran % (Auto) Neut % (Auto) Lymph % (Auto) [place] % (Auto) Eos % (Auto) Baso % (Auto) Absolute Neuts (auto) Absolute Lymphs (auto) Nucleated RBC % Sodium Potassium Chloride Carbon Dioxide Anion Gap BUN Creatinine Estim Creat Clear Calc Est GFR (MDRD) Af Amer Est GFR (MDRD) Non-Af BUN/Creatinine Ratio Glucose Calcium Total Bilirubin AST ALT Alkaline Phosphatase Total Protein Albumin Globulin Albumin/Globulin Ratio POC Glucose 135 H 134 H 120 H 08/22/20 08/22/20 08/22/20 11:12 13:19 13:21 WBC RBC Hgb Hct MCV MCH MCHC RDW Std Deviation RDW Coeff of Darrion Plt Count MPV Immature Gran % (Auto) Neut % (Auto) Lymph % (Auto) [place] % (Auto) Eos % (Auto) Baso % (Auto) Absolute Neuts (auto) Absolute Lymphs (auto) Nucleated RBC % Sodium Potassium Chloride Carbon Dioxide Anion Gap BUN Creatinine Estim Creat Clear Calc Est GFR (MDRD) Af Amer Est GFR (MDRD) Non-Af BUN/Creatinine Ratio Glucose Calcium Total Bilirubin AST ALT Alkaline Phosphatase Total Protein Albumin Globulin Albumin/Globulin Ratio POC Glucose 136 H 317 H 290 H 08/22/20 08/22/20 08/23/20 17:20 21:19 01:34 WBC RBC Hgb Hct MCV MCH MCHC RDW Std Deviation RDW Coeff of Darrion Plt Count MPV Immature Gran % (Auto) Neut % (Auto) Lymph % (Auto) [place] % (Auto) Eos % (Auto) Baso % (Auto) Absolute Neuts (auto) Absolute Lymphs (auto) Nucleated RBC % Sodium Potassium Chloride Carbon Dioxide Anion Gap BUN Creatinine Estim Creat Clear Calc Est GFR (MDRD) Af Amer Est GFR (MDRD) Non-Af BUN/Creatinine Ratio Glucose Calcium Total Bilirubin AST ALT Alkaline Phosphatase Total Protein Albumin Globulin Albumin/Globulin Ratio POC Glucose 314 H 368 H 269 H 08/23/20 08/23/20 08/23/20 05:03 05:50 05:50 WBC 10.9 RBC 4.45 Hgb 12.5 Hct 40.3 MCV 90.6 MCH 28.1 MCHC 31.0 L RDW Std Deviation 51.9 H RDW Coeff of Darrion 15.7 H Plt Count 258 MPV 9.7 Immature Gran % (Auto) 0.700 Neut % (Auto) 66.5 Lymph % (Auto) 25.3 [place] % (Auto) 6.6 Eos % (Auto) 0.4 Baso % (Auto) 0.5 Absolute Neuts (auto) 7.3 Absolute Lymphs (auto) 2.76 Nucleated RBC % 0 Sodium 139 Potassium 3.7 Chloride 100 Carbon Dioxide 30.0 Anion Gap 9 BUN 44 H Creatinine 0.87 Estim Creat Clear Calc 75.03 Est GFR (MDRD) Af Amer 92 Est GFR (MDRD) Non-Af 76 BUN/Creatinine Ratio 50.7 H Glucose 268 H Calcium 8.8 Total Bilirubin 0.40 AST 10 L ALT 15 Alkaline Phosphatase 61 Total Protein 7.1 Albumin 2.7 L Globulin 4.4 H Albumin/Globulin Ratio 0.6 L POC Glucose 275 H 08/23/20 08/23/20 08/23/20 11:49 17:23 21:06 WBC RBC Hgb Hct MCV MCH MCHC RDW Std Deviation RDW Coeff of Darrion Plt Count MPV Immature Gran % (Auto) Neut % (Auto) Lymph % (Auto) [place] % (Auto) Eos % (Auto) Baso % (Auto) Absolute Neuts (auto) Absolute Lymphs (auto) Nucleated RBC % Sodium Potassium Chloride Carbon Dioxide Anion Gap BUN Creatinine Estim Creat Clear Calc Est GFR (MDRD) Af Amer Est GFR (MDRD) Non-Af BUN/Creatinine Ratio Glucose Calcium Total Bilirubin AST ALT Alkaline Phosphatase Total Protein Albumin Globulin Albumin/Globulin Ratio POC Glucose 249 H 323 H 307 H 08/24/20 08/24/20 04:15 04:15 WBC 14.1 H RBC 4.65 Hgb 13.0 Hct 42.5 MCV 91.4 MCH 28.0 MCHC 30.6 L RDW Std Deviation 51.8 H RDW Coeff of Darrion 15.6 H Plt Count 276 MPV 9.4 Immature Gran % (Auto) 0.800 Neut % (Auto) 69.3 Lymph % (Auto) 22.7 [place] % (Auto) 5.9 Eos % (Auto) 0.8 Baso % (Auto) 0.5 Absolute Neuts (auto) 9.8 H Absolute Lymphs (auto) 3.21 Nucleated RBC % 0 Sodium 136 Potassium 3.7 Chloride 94 L Carbon Dioxide 37.0 H Anion Gap 5 BUN 30 H Creatinine 0.80 Estim Creat Clear Calc 81.59 Est GFR (MDRD) Af Amer 101 Est GFR (MDRD) Non-Af 83 BUN/Creatinine Ratio 37.6 H Glucose 175 H Calcium 9.5 Total Bilirubin 0.40 AST 26 ALT 25 Alkaline Phosphatase 62 Total Protein 7.5 Albumin 3.0 L Globulin 4.5 H Albumin/Globulin Ratio 0.7 L POC Glucose Microbiology 08/20/20 06:10 Sputum, Induced/Lukens Gram Stain - Final 08/20/20 06:10 Sputum, Induced/Lukens Respiratory Culture - Final Ayla albicans 08/19/20 23:25 Blood Culture (Wb) - Right Hand Blood Culture - Preliminary No growth in 48 hours. 08/19/20 21:00 Blood Culture (Wb) - Arm Left Blood Culture - Preliminary No growth in 48 hours. 08/19/20 22:19 Urine, Clean Catch Urine Culture - Final Culture exhibits no growth. Clinical Impression(s) from Imaging Studies Chest X-Ray 08/19/20 22:00 IMPRESSION: Pulmonary edema. at 2228 Reported and signed by: Caio Bruno MD Electronically Signed: Caio Bruno MD at 22:27 EDT Tel , Service support , Chest CT 08/19/20 23:19 IMPRESSION: No acute thoracic disease. Hepatomegaly. Individualized dose optimization techniques were used for this CT. at 0200 Reported and signed by: Caio Bruno MD Electronically Signed: Caio Bruno MD at 1:59 EDT Tel , Service support , Brain CT 08/19/20 23:31 IMPRESSION: Negative Brain CT without contrast. Individualized dose optimization techniques were used for this CT. at 0157 Reported and signed by: Caio Bruno MD Electronically Signed: Caio Bruno MD at 1:56 EDT Tel , Service support , Chest X-Ray 08/20/20 06:10 IMPRESSION: Ill-defined subpleural groundglass opacities are seen more prominent in the lung bases , may represent atypical pneumonia or viral pneumonia. NG tube is seen its tip is at the GE junction and can be advanced 10 cm. Electronically Signed: Patti Jensen at 8:05 EDT Tel , Service support , ADDENDUM: 08/20/20 0821 IMPRESSION: Ill-defined subpleural groundglass opacities are seen more prominent in the lung bases , may represent atypical pneumonia or viral pneumonia. NG tube is seen its tip is at the GE junction and can be advanced 10 cm. N.B. : The above information has been verbally conveyed by Patti Jensen to [place] Dumont MD, on 08/20/2020 08:14:40 (ET). Electronically Signed: Patti Jensen at 8:05 EDT Tel , Service support , Medical Necessity - Tobacco Use Smoking Status: Current every day smoker Assessment/Plan All Active Problems (Last Reviewed 08/20/20 @ 03:[address] Chris Gill MD) Opioid overdose (Acute) Opiate overdose (Resolved) Cellulitis of leg (Acute) KERRY (acute kidney injury) (Acute) Acute encephalopathy (Acute) Sepsis (Acute) CAP (community acquired pneumonia) (Acute) Respiratory failure with hypoxia (Acute) RECOMMENDATIONS: 1. Continue empiric antimicrobials to complete a 7-day treatment course. 2. Continue scheduled BuSpar 10 mg twice daily. 3. Continue to wean supplemental oxygen as tolerated. 4. Continue Eliquis per home regimen. 5. Continue Lantus and sliding scale insulin coverage. 6. Encourage incentive spirometer use and mobilize patient as tolerated. 7. Continue BiPAP therapy with naps and nightly. 8. Follow-up in the pulmonary medicine clinic within 2 weeks of discharge. IMPRESSIONS: 1. Acute on chronic combined respiratory failure Improved. Suspect that this is secondary to illicit opiate medication use coupled with alveolar hypoventilation secondary to obesity and poor outpatient compliance with the use of supplemental oxygen and noninvasive positive pressure ventilatory support. The patient does not have obstructive lung disease, based upon her last pulmonary function studies. She is currently on antimicrobials for possible left lower lobe pneumonia. I do not see any evidence of lower extremity cellulitis. Plan to continue BiPAP therapy with naps and nightly. Supplemental oxygen can be weaned as tolerated. Encourage incentive spirometer use and mobilize patient as tolerated. The patient should follow-up in the pulmonary medicine clinic within 2 weeks of discharge. 2. Severe sepsis with concern for left lower lobe pneumonia We will plan to continue empiric antimicrobials, with plans to complete a 7-day treatment course. The patient remains hemodynamically stable. 3. Acute kidney injury Resolved. Likely multifactorial in etiology and related to #1 coupled with possible vascular congestion. The patient's renal function is improving with gentle diuresis. This will be continued as tolerated by hemodynamics and renal function. Continue to monitor urine output accordingly. No current indication for renal replacement therapy. 4. Poorly controlled diabetes mellitus Continue Lantus and sliding scale insulin coverage. We will continue to wean steroids as tolerated. 5. Encephalopathy Improved. Likely secondary to hypercapnia in the setting of opiate pain medication use coupled with alveolar hypoventilation from obesity. Plan to continue current supportive measures as noted above. 6. Super morbid obesity/tobacco dependency/obstructive sleep apnea with Pap noncompliance/history of PE Complicates care, management, recovery and prognosis. Physical therapy to work with the patient. This note was generated with [employer] dictation software. It may contain incorrect words, spelling, and punctuation that were not noted in checking the note before signing. Inpatient E&M: 89934 Subs Hosp L3
--- NOTE | 2020-08-24 07:20 | PN_ITS ---
Vitals/I&O's: Vital Signs Temp Pulse Resp BP Pulse Ox 98.4 F 61 18 124/49 H 99 08/24/20 06:00 08/24/20 06:00 08/24/20 06:00 08/24/20 06:00 08/24/20 06:00 Oxygen Flow Rate (L/min) 4 Oxygen Delivery Method Bi-pap Weight: 338 lb 10.08 oz Body Mass Index (BMI) 62.1 Finger Stick Blood Glucose 120 Intake and Output for Last 24 Hours 08/22/20 08/23/20 08/24/20 23:59 23:59 23:59 Intake Total 3997.61 / 4693.71 1905.60 / 2005.60 325 / 325 Output Total 4900 / 5450 5700 / 6000 875 / 875 Balance -902.39 / -756.29 -3794.40 / -3994.40 -550 / -550 Microbiology Past 72 Hours 08/20/20 06:10 Sputum, Induced/Lukens Gram Stain - Final 08/20/20 06:10 Sputum, Induced/Lukens Respiratory Culture - Final Ayla albicans 08/19/20 23:25 Blood Culture (Wb) - Right Hand Blood Culture - Preliminary No growth in 48 hours. 08/19/20 21:00 Blood Culture (Wb) - Arm Left Blood Culture - Preliminary No growth in 48 hours. 08/19/20 22:19 Urine, Clean Catch Urine Culture - Final Culture exhibits no growth. Laboratory Results 08/23/20 11:49: POC Glucose 249 H 08/23/20 17:23: POC Glucose 323 H 08/23/20 21:06: POC Glucose 307 H 08/24/20 04:15: WBC 14.1 H, RBC 4.65, Hgb 13.0, Hct 42.5, MCV 91.4, MCH 28.0, MCHC 30.6 L, RDW Std Deviation 51.8 H, RDW Coeff of Darrion 15.6 H, Plt Count 276, MPV 9.4, Immature Gran % (Auto) 0.800, Neut % (Auto) 69.3, Lymph % (Auto) 22.7, [place] % (Auto) 5.9, Eos % (Auto) 0.8, Baso % (Auto) 0.5, Absolute Neuts (auto) 9.8 H, Absolute Lymphs (auto) 3.21, Nucleated RBC % 0 08/24/20 04:15: Sodium 136, Potassium 3.7, Chloride 94 L, Carbon Dioxide 37.0 H, Anion Gap 5, BUN 30 H, Creatinine 0.80, Estim Creat Clear Calc 81.59, Est GFR (MDRD) Af Amer 101, Est GFR (MDRD) Non-Af 83, BUN/Creatinine Ratio 37.6 H, Glucose 175 H, Calcium 9.5, Total Bilirubin 0.40, AST 26, ALT 25, Alkaline Phosphatase 62, Total Protein 7.5, Albumin 3.0 L, Globulin 4.5 H, Albumin/Globulin Ratio 0.7 L Current Medications Acetaminophen (Tylenol Liquid) 650 mg PO Q6H PRN PRN PRN Reason: PAIN SCORE 1-10, TEMP > 100.7F Albuterol Sulfate (Ventolin Aerosols) 2.5 mg INHALATION Q2H PRN PRN PRN Reason: SOB/Wheezing Albuterol/Ipratropium (Duoneb) 3 ml INHALATION Q4H.RT [facility] Last Admin: 08/24/20 03:17 Dose: Not Given Documented by: Apixaban (Eliquis) 5 mg PO BID [facility] Last Admin: 08/23/20 21:09 Dose: 5 mg Documented by: Aspirin (Aspirin, Baby) 81 mg PO DAILY@0800 [facility] Atorvastatin Calcium (Lipitor) 40 mg PO QHS [facility] Last Admin: 08/23/20 21:09 Dose: 40 mg Documented by: Buspirone HCl (Buspar) 10 mg PO BID [facility] Last Admin: 08/23/20 21:28 Dose: 10 mg Documented by: Dextrose (D50w Syringe) 0 gm IV X1 PRN; Protocol PRN Reason: Hypoglycemia Diltiazem HCl (Cardizem) 60 mg PO Q6 [facility] Last Admin: 08/24/20 06:03 Dose: 60 mg Documented by: Famotidine (Pepcid) 20 mg PO BID [facility] Last Admin: 08/23/20 21:07 Dose: 20 mg Documented by: Furosemide (Lasix) 40 mg PO BID@1000,1800 [facility] Last Admin: 08/23/20 17:36 Dose: 40 mg Documented by: Gabapentin (Neurontin) 900 mg PO TIDCM [facility] Last Admin: 08/23/20 17:30 Dose: 900 mg Documented by: Glucagon () 1 mg IM .X1 PRN PRN Reason: Hypoglycemia Hydralazine HCl (Apresoline) 50 mg PO TID PRN PRN Reason: SBP > 160 Hydrochlorothiazide (Hctz) 25 mg PO DAILY [facility] Sodium Chloride () 250 mls @ 15 mls/hr IV .[id number] PRN PRN Reason: Additional IVPB Infusion Last Infusion: 08/21/20 14:37 Dose: Infused Documented by: Ceftriaxone Sodium 2 gm/ (Sodium Chloride) 50 mls @ 100 mls/hr IV Q24 [facility] Stop: 08/26/20 10:01 Last Infusion: 08/23/20 19:00 Dose: Infused Documented by: Insulin Glargine (Lantus (Bkc)) 90 units SC BID [facility] Last Admin: 08/23/20 21:11 Dose: 90 u Documented by: Insulin Human Lispro (Humalog Kwikpen (Bkc)) 0 unit SC ACHS [facility]; Protocol Last Admin: 08/23/20 21:10 Dose: 9 units Documented by: Insulin Human Lispro (Humalog Kwikpen (Bkc)) 10 unit SC TIDAC [facility] Last Admin: 08/23/20 17:28 Dose: 10 u Documented by: Labetalol HCl (Trandate) 20 mg IV Q4H PRN PRN PRN Reason: BLOOD PRESSURE ELEVATION Last Admin: 08/23/20 01:26 Dose: 20 mg Documented by: Lisinopril (Zestril) 20 mg PO DAILY [facility] Naloxone HCl (Narcan) 0.02 mg IV Q1M PRN PRN Reason: RR <10 and pt unresponsive Ondansetron HCl (Zofran) 4 mg IV Q8H PRN PRN PRN Reason: NAUSEA/VOMITING Last Admin: 08/20/20 03:53 Dose: 4 mg Documented by: Prednisone () 40 mg PO DAILY@0800 [facility] Stop: 08/29/20 08:01 Senna/Docusate Sodium (Senokot-S, Gill-Colace) 2 tablet PO BID [facility] Last Admin: 08/23/20 21:08 Dose: Not Given Documented by: Sodium Chloride () 10 - 40 ml IV UD PRN PRN Reason: SALINE FLUSH Last Admin: 08/23/20 08:25 Dose: 20 ml Documented by: STROKE Vital Signs/Narrative: Vital Signs Temp Pulse Resp BP Pulse Ox 08/24/20 06:00 98.4 F 61 18 124/49 H 99 08/24/20 05:55 62 20 H 100 Medical Necessity - Tobacco Use Smoking Status: Current every day smoker Assessment/Plan All Active Problems (Last Reviewed 08/20/20 @ 03:[address] Chris Gill MD) Opiate overdose (Resolved) Cellulitis of leg (Acute) KERRY (acute kidney injury) (Acute) Acute encephalopathy (Acute) Sepsis (Acute) CAP (community acquired pneumonia) (Acute) Respiratory failure with hypoxia (Acute)
[2020-08-24 07:46] LABS: Bedside Glucose 169 mg/dL (70-110)
[2020-08-24] MEDS: Insulin Lispro 100 UNIT/ML INSULN.PEN SC ×2 (07:47→10:54)
[2020-08-24] MEDS: Insulin Lispro 100 UNIT/ML INSULN.PEN 10 UNIT SC ×2 (07:48→11:42)
[2020-08-24] MEDS: Gabapentin 300 MG Capsule 900 MG PO ×2 (07:49→10:46)
[2020-08-24] MEDS: Aspirin 81 MG TAB.CHEW PO (07:50)
[2020-08-24] MEDS: predniSONE 20 MG Tablet 40 MG PO (07:51)
[2020-08-24] MEDS: Ipratropium/Albuterol Sulfate 3 ML AMPUL.NEB INHALATION ×2 (07:57→11:40)
[2020-08-24 08:07] LABS: Mucous, Urine 0 SEEN /hpf (<or=2+)
[2020-08-24 08:09] LABS: Color, Urine Straw (Yellow); Glucose, Dipstick Normal (Normal); Ketone-Dipstick Negative (Negative); Leukocyte Esterase-Dipstick 25 /ul (Negative); Nitrite-Dipstick Negative (Negative); Occult Blood-Urine 150 /ul (Negative); Protein-Dipstick 30 mg/dl (Negative); Specific Gravity, Urine 1.015 (1.002-1.030); Urine Bilirubin Dipstick Negative (Negative); Urine Clarity Sl. Cloudy (Clear); Urine Urobilinogen Normal (Normal)
[2020-08-24 08:17] LABS: Bacteria 1+ /hpf (None Seen); Red Blood Cells-Urine 10-25 SEEN /hpf (0-5); Squamous Epithelial Cells - UA 0-5 SEEN /hpf (5-10); White Blood Cells 0-5 SEEN /hpf (0-5)
--- NOTE | 2020-08-24 10:35 | DCINST_ITS ---
- Discharge Diagnoses Current Active Problems: 1. Acute Severe Sepsis secondary to Acute on Chronic Hypoxic and Hypercarbic Respiratory Failure, Multifactorial, Narcotic Overdose, Hypoventilation Syndrome, Worsening Pulmonary HTN, Acute on Chronic COPD Exacerbation, Possible Volume Overload, Possible LLL CAP and Possible LLE Cellulitis 2. Acute Encephalopathy secondary to #1 3. Acute kidney injury, Secondary to acute presentation as noted #1, #2 4. Hyperosmolar nonketotic state secondary to uncontrolled insulin-dependent diabetes mellitus type II (HgbA1c 11.2%) 5. Hypertension 6. Hyperlipidemia 7. GERD: 8. History of pulmonary embolism 9. Morbid Obesity 10. Tobacco Abuse 11. LOGAN You will use the following diet at home:: Calorie/Carbohydrate Controlled (specify 1200, 1400, etc) - 1800 ADA, cardiac diet strongly recommended. Your food should be the consistency of: Regular Your liquids should be the consistency of: Regular/Thin Discharge Activity: - - Encourage routine mild activity, ambulation in your home. Please continue aggressive incentive spirometer usage at home 10x/hr 7a- 7p. Continue supplemental oxygenation. May resume sexual activity in: 10-14 days - Once acute presentation resolved. Weight Bearing Status: Weight bearing as tolerated Call your doctor if you observe: Fever of 101 or Higher, Inability to urinate, Inability to have a bowel movement, Shortness of breath, Dizziness, Fainting spells, Chest pain, Uncontrolled pain Instructions: Using Oxygen Safely, What Is Pneumonia?, Using Oxygen at Home, Preventing Pneumonia, Treating Pneumonia, What Is COPD?, Treatments for COPD, COPD: Using Inhalers, ED COPD Flare, Chronic Lung Disease: Tips for Quitting Smoking, What Is Type 2 Diabetes?, How to Check Your Blood Sugar, Diabetes: Understanding Carbohydrates, Healthy Meals for Diabetes, Types of Insulin, Oral Therapy for Type 2 Diabetes, Using Injected Insulin, Hyperglycemia (High Blood Sugar), Hypoglycemia (Low Blood Sugar) Additional Instructions: Pneumonia/COPD with respiratory chronic failure: Please complete your antibiotic therapy as well as your steroid therapy. Continue usage of your nebulized duoneb therapies and once completed start usage of the advair. You have been given rx for as needed albuterol inhaler to have on you and nebulizer for home if needed. Please follow-up with the Pulmonary Clinic as requested in 2 weeks but call earlier if any concerns. Diabetes: Your diabetes is poorly controlled currently. Your hgbA1c was 11.2%. We have increased your long-acting insulin to 90 u twice daily. We decreased your short acting until we continue to see your trend given the long-acting increase but will also have your continue to overlap with a sliding scale pen. Obesity: We strongly encourage you to consider re-establishing with the bypass clinic to assist in weight loss. Tobacco use: We strongly encourage you to stop smoking. Please continue to work with your primary care physician and if decide to use obtain nicotine patches. Sleep Apnea: We are working through sleep lab to obtain a new mask. Please assure you use your BIPAP each evening and if napping. Allergies/Adverse Reactions: Allergies cyclobenzaprine HCl [From Flexeril] Allergy (Verified 08/19/20 20:49) Hives venlafaxine [From Effexor] Adverse Reaction (Severe, Verified 08/19/20 20:49) unknown Medications to take at Discharge Hydrochlorothiazide [Hctz] 25 mg PO DAILY 02/02/17 Multivit,Calc,Mins/Iron/Folic [Women's Daily Formula Caplet] 1 ea PO DAILY 03/26/17 Gabapentin [Neurontin] 900 mg PO TID 05/29/17 Dulaglutide [Trulicity] 0.5 ml SQ QWEEK MDD 0.5ml 06/08/18 Furosemide 40 mg PO BID 12/15/18 Omeprazole 40 mg PO DAILY 12/15/18 Metformin HCl 1,000 mg PO DAILY 01/04/19 lisinopril 20 mg tablet 20 mg PO DAILY tab 03/01/20 loratadine 10 mg tablet 10 mg PO DAILY PRN tab 03/01/20 Apixaban [Eliquis] 5 mg PO BID 08/20/20 Aspirin E.C. [Ecotrin] 81 mg PO DAILY@0800 08/20/20 Atorvastatin Calcium 40 mg PO QHS 08/20/20 Compression Socks, Medium [Futuro Restoring] 1 ea MC DAILY 08/20/20 Diltiazem CD [Cardizem CD] 120 mg PO DAILY 08/20/20 Albuterol Aerosols [Ventolin Aerosols] 2.5 mg INHALATION Q2H PRN PRN #1 box 08/24/20 Albuterol IH (ProAir) [Proair Hfa] 1 puff INHALATION Q4H PRN PRN #1 inhaler 08/02 03/20 Cefdinir [Omnicef [equiv]] 300 mg PO Q12H #6 cap 08/24/20 Fluticasone/Salmeterol [Advair 250-50 Diskus] 1 ea IH BID #1 blst.w.dev 08/24/20 Insulin Glargine [Lantus SoloStar Pen] 90 units SUBCUT BID #1 pen 08/24/20 Insulin Lispro [Humalog KwikPen] 20 unit SUBCUT TIDAC #1 insuln.pen 08/24/20 Insulin Lispro [Humalog KwikPen] See Protocol SUBCUT ACHS #1 insuln.pen 08/24/20 Ipratropium/Albuterol Sulfate [Duoneb] 3 ml INHALATION Q4H.RT #1 box 08/24/20 Nebulizer [Lc Star] 1 [facility] UD 30 Days #1 ea 08/24/20 Oxygen, Home [Home Oxygen] 2 lpm NASAL DAILY 30 Days #30 device 08/24/20 Senna/Docusate Sodium [Senokot-S] 2 tablet PO BID tablet 08/24/20 busPIRone [Buspar] 10 mg PO BID #60 tab 08/24/20 predniSONE tablet 40 mg PO DAILY@0800 #5 tab 08/24/20 The following prescriptions were given: Fluticasone/Salmeterol [Advair 250-50 Diskus] 1 ea IH BID #1 blst.w.dev Transmission Status: Pending to [facility] busPIRone [Buspar] 10 mg PO BID #60 tab Transmission Status: Pending to [facility] Ipratropium/Albuterol Sulfate [Duoneb] 3 ml INHALATION Q4H.RT #1 box Transmission Status: Pending to [facility] Oxygen, Home [Home Oxygen] 2 lpm NASAL DAILY 30 Days #30 device Prescription Printed Insulin Lispro [Humalog KwikPen] 20 unit SUBCUT TIDAC #1 insuln.pen Transmission Status: Pending to [facility] Insulin Lispro [Humalog KwikPen] See Protocol SUBCUT ACHS #1 insuln.pen Transmission Status: Pending to [facility] Insulin Glargine [Lantus SoloStar Pen] 90 units SUBCUT BID #1 pen Transmission Status: Pending to [facility] Nebulizer [Lc Star] 1 ea MC UD 30 Days #1 ea Transmission Status: Pending to [facility] Cefdinir [Omnicef [equiv]] 300 mg PO Q12H #6 cap Transmission Status: Pending to [facility] predniSONE tablet 40 mg PO DAILY@0800 #5 tab Transmission Status: Pending to [facility] Albuterol IH (ProAir) [Proair Hfa] 1 puff INHALATION Q4H PRN PRN #1 inhaler PRN Reason: Dyspnea, wheezing Transmission Status: Pending to [facility] Albuterol Aerosols [Ventolin Aerosols] 2.5 mg INHALATION Q2H PRN PRN #1 box PRN Reason: SOB/Wheezing Transmission Status: Pending to [facility] Primary Care Physician: Tino Oreilly MD [Primary Care Provider] - Please follow up with your Primary Care Physician in: Follow-up within 2-3 days to review admission. Test Results: Test results from this visit will be discussed in further detail at your follow- up appointment, if applicable. Please Follow Up With: Nelly Hunter NP-C - ' When: Please follow-up with Pulmonary [facility] in 2 weeks. Call sooner if any issues. Proposed Discharge Date: 08/24/20
[2020-08-24] MEDS: APIXABAN 5 MG TABLET PO (10:44)
[2020-08-24] MEDS: busPIRone 5 MG Tablet 10 MG PO (10:44)
[2020-08-24] MEDS: hydroCHLOROthiazide 25 MG Tablet PO (10:45)
[2020-08-24] MEDS: Senna/Docusate Sodium 1 Tablet 2 TABLET PO (10:45)
[2020-08-24] MEDS: Lisinopril 20 MG Tablet PO (10:46)
[2020-08-24] MEDS: Famotidine 20 MG Tablet PO (10:47)
[2020-08-24] MEDS: Furosemide 40 MG Tablet PO (10:47)
--- NOTE | 2020-08-24 10:49 | DS.PCM_ITS ---
Discharge Date and Diagnosis Date of Admission: 08/19/20 Date of Discharge: 08/24/20 - Primary Discharge Diagnosis Acute Problems: 1. Acute Severe Sepsis secondary to Acute on Chronic Hypoxic and Hypercarbic Respiratory Failure, Multifactorial, Narcotic Overdose, Hypoventilation S yndrome, Worsening Pulmonary HTN, Acute on Chronic COPD Exacerbation, Possible Volume Overload, Possible LLL CAP and Possible LLE Cellulitis 2. Acute Encephalopathy secondary to #1 3. Acute kidney injury, Secondary to acute presentation as noted #1, #2 4. Hyperosmolar nonketotic state secondary to uncontrolled insulin-dependent diabetes mellitus type II (HgbA1c 11.2%) 5. Hypertension 6. Hyperlipidemia 7. GERD: 8. History of pulmonary embolism 9. Morbid Obesity 10. Tobacco Abuse 11. LOGAN - Secondary Discharge Diagnosis Chronic Problems: Chronic Problems (Last Reviewed 08/20/20 @ 03:[address] Chris Gill MD) Chronic respiratory failure with hypoxia (Chronic) Type 2 diabetes mellitus (Chronic) Essential hypertension (Chronic) Restrictive lung disease secondary to obesity (Chronic) Hyperglycemia (Chronic) 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 (Chronic) 23/17 cmH20 Anxiety (Chronic) Morbid obesity (Chronic) Hyperlipidemia (Chronic) Hyperglycemia due to type 2 diabetes mellitus (Chronic) Hospital Course and Treatment Dr. Dumont/Dr. Sanders ICU Operations: None Procedures: EKG, Intubation Summary of Care Provided: The patient is a 45 y/o F w/ PMHx: Diabetes mellitus type II with neuropathy, Morbid Obesity, Anxiety and Depression, Hx NSTEMI, CAD, HTN, HLD, Chronic Hypoxic Respiratory Failure (6L NC), Hx PE, Tobacco use, LOGAN, GERD, Chronic COPD who presented to the [facility] ED on 08/19/20 with history of unresponsiveness and hypoxia. ED presentation with CBC with WBC 14.2, hemoglobin 1.7, platelet 259 with left shift, ABG at that time with pH 7.17, bicarb 20.3, O2 saturation 91, PCO2 78, PO2 80 with placement on BiPAP at that time and eventual intubation following transition to the ICU, CMP with sodium 132, chloride 97, BUN/creatinine 49/2.12, glucose 338, troponin less than 0.015, BNP 38, urine drug screen with positive opiates, CXR upon presentation with concern for possible pulmonary edema with follow-up CT chest with no acute thoracic disease, evidence hepatomegaly, some interstitial edema and pulmonary venous congestion with atelectasis but not severe appearing. Patient admitted to the ICU, intubated following admission, failed SBT 08/22/20 AM with increased secretions, elevated HR, elevated RR. Continued intubation with addition precedex per ICU discretion 08/22/20, continued ATC duonebs, PRN albuterol, continued IV solumedrol but weaned to 40 mg IV daily and 08/23/20 transition to oral prednisone, maintained on IV Rocephin and Azithromycin with planned completion 3 days additional omnicef transition at discharge for 7 day treatment plan, maintained on tube feeds with nutrition consultation until extubated and passed swallow evaluation, IV lasix for concern for possible volume overload and once appropriately diuresis patient transitioned back to her oral home lasix regimen. Sputum cultures alpha hemolytic strep noted, negative urine antigens, negative COVID testing. 08/23/20 excessively extubated, speech evaluation with clearance following extubation successfully. Patient urine drug screen as noted with positive opiates, admits to using narcotics from other individuals for her peripheral neuropathy. Consulted case management to assist with outpatient substance abuse. Admission BUN/Cr 49/2.12, prior baseline creatinine noted to be 0.7-0.9. Given patient volume overload and congestion ongoing diuresis, 08/20/2020 BUN/creatinine 58/1.24-->08/22/20 BUN/Cr 53/0.80-->08/24/20 BUN/Cr 30/0.8. Admission blood sugar significantly elevated especially with usage of steroid therapies, hemoglobin A1c 11.2, initially maintained on insulin drip secondary to significant hyperglycemia with initiation of tube feeds, decreasing BS with eventual transition off of insulin drip with transition to subcu insulin, ongoing 200-300 range blood sugars, increased from 90 units subcu twice daily with 20 unit with meals in addition to continued insulin sliding scale with before meals at bedtime coverage. Nutrition consulted for education and teaching. Strongly discussed appropriate usage of her BIPAP and appropriate cleaning of her machine. She has been in back payment with her healthcare supply [employer] so they will not given her additional equipment. Encouraged payment plan to allow her access to these companies. Hospital provided mask for her BIPAP as she had not had one and has done so prior but noted to her she needed to start being involved and an advocate for her own health. Pulmonary therapy discussed at length how to care for her machine and need for her to obtain additional specific connection which she was noted to be able to obtain at [facility]. Encouraged strongly tobacco cessation, inpatient consultation per RT, NR offered. Clinical improvement and clearance per ICU physician, patient discharged to home following reevaluation per therapies with her agreement with walker prescription provided with plan to follow-up with pulmonary medicine in 2 weeks as well as PCP within 3 to 5 days, continued BiPAP usage, completion of antibiotic therapy, completion of prednisone burst, increased insulin therapies. Oxygenation assessment was performed prior to patient's discharge and confirmed 2 L nasal cannula usage. DAY OF DISCHARGE PROGRESS NOTE: Subjective: Patient without acute event overnight per self and nursing report. Patient tolerating BiPAP well. Patient eager for discharge and notes feeling improved. Patient denies fever, chills, nausea, emesis, abdominal pain, chest pain or recurrent or worsened dyspnea. Noted lower extremity peripheral pain improved with return of gabapentin. Patient agreeable to discharge to home with clearance for no therapy needs per discussion with therapy evaluation today. Patient will be discharged with follow-up with primary care physician within 3-5 days in addition to pulmonary medicine in 2 weeks per discussion with ICU physician. Objective: T 98.8, heart rate 60, BP 120/62, respiratory rate 18, 98% on 2 L nasal cannula. Physical Examination: General: awake, alert, oriented x 3 and cooperative, seated upright in the ICU bed, NAD. Skin: normal color, turgor, no icterus, cyanosis except noted bilateral lower extremity stasis disease, resolved previous noted cellulitis. HEENT: AT/NC, EOMI, PERRLA, MMM. Lungs: Significantly improved, diminished bases, occasional wheeze but markedly improved since prior, less rhonchorous, no rales. Heart: Regular rate and rhythm; no gallop, rub audible. Abdomen: soft, morbidly obese, NTTP, ND, distant normal BS. Extremities: no cyanosis, clubbing, resolved prior edema, no evidence of any cellulitis, stasis disease bilateral lower extremities. Neurological: patient awake, alert, oriented x 3; cognitive function appears intact upon questioning,; pupils equally reactive to light and accomodation; cranial nerves II-XII grossly normal, moving all 4 extremities, strength improved, mildly to moderately globally decreased, working with therapy and graduated to discharge to home without therapies. Psychiatric: affect appears improved, normal, no acute evidence of depressive or anxiety feelings. Assessment and Plan: Please see hospital summary above. - Physical Exam Vitals/I&O's: Vital Signs Temp Pulse Resp BP Pulse Ox 99 F 61 16 144/58 H 94 08/24/20 07:00 08/24/20 07:58 08/24/20 07:58 08/24/20 07:00 08/24/20 10:22 Oxygen Flow Rate (L/min) 4 Oxygen Delivery Method Nasal Cannula Weight: 338 lb 10.08 oz Body Mass Index (BMI) 62.1 Finger Stick Blood Glucose 120 Intake and Output for Last 24 Hours 08/22/20 08/23/20 08/24/20 23:59 23:59 23:59 Intake Total 3997.61 / 4693.71 1905.60 / 2005.60 325 / 325 Output Total 4900 / 5450 5700 / 6000 875 / 875 Balance -902.39 / -756.29 -3794.40 / -3994.40 -550 / -550 Microbiology Past 72 Hours 08/20/20 06:10 Sputum, Induced/Lukens Gram Stain - Final 08/20/20 06:10 Sputum, Induced/Lukens Respiratory Culture - Final Ayla albicans 08/19/20 23:25 Blood Culture (Wb) - Right Hand Blood Culture - Preliminary No growth in 48 hours. 08/19/20 21:00 Blood Culture (Wb) - Arm Left Blood Culture - Preliminary No growth in 48 hours. 08/19/20 22:19 Urine, Clean Catch Urine Culture - Final Culture exhibits no growth. Laboratory Results 08/23/20 11:49: POC Glucose 249 H 08/23/20 17:23: POC Glucose 323 H 08/23/20 21:06: POC Glucose 307 H 08/24/20 04:15: WBC 14.1 H, RBC 4.65, Hgb 13.0, Hct 42.5, MCV 91.4, MCH 28.0, MCHC 30.6 L, RDW Std Deviation 51.8 H, RDW Coeff of [place]arr[place] 15.6 H, Plt Count 276, MPV 9.4, Immature Gran % (Auto) 0.800, Neut % (Auto) 69.3, Lymph % (Auto) 22.7, [place] % (Auto) 5.9, Eos % (Auto) 0.8, Baso % (Auto) 0.5, Absolute Neuts (auto) 9.8 H, Absolute Lymphs (auto) 3.21, Nucleated RBC % 0 08/24/20 04:15: Sodium 136, Potassium 3.7, Chloride 94 L, Carbon Dioxide 37.0 H, Anion Gap 5, BUN 30 H, Creatinine 0.80, Estim Creat Clear Calc 81.59, Est GFR (MDRD) Af Amer 101, Est GFR (MDRD) Non-Af 83, BUN/Creatinine Ratio 37.6 H, Glucose 175 H, Calcium 9.5, Total Bilirubin 0.40, AST 26, ALT 25, Alkaline Phosphatase 62, Total Protein 7.5, Albumin 3.0 L, Globulin 4.5 H, Albumin/Globulin Ratio 0.7 L 08/24/20 07:33: POC Glucose 169 H 08/24/20 08:00: Urine Color Straw, Urine Clarity Sl. Cloudy, Urine pH 6.0, Ur Specific [place] 1.015, Urine Protein 30 H, Urine Glucose (UA) Normal, Urine Ketones Negative, Urine Occult Blood 150 H, Urine Nitrite Negative, Urine Bilirubin Negative, Urine Urobilinogen Normal, Ur Leukocyte Esterase 25 H, Urine RBC 10-25 SEEN, Urine WBC 0-5 SEEN, Ur Squamous Epith Cells 0-5 SEEN, Urine Bacteria 1+, Urine Mucus 0 SEEN Current Medications Acetaminophen (Tylenol Liquid) 650 mg PO Q6H PRN PRN PRN Reason: PAIN SCORE 1-10, TEMP > 100.7F Albuterol Sulfate (Ventolin Aerosols) 2.5 mg INHALATION Q2H PRN PRN PRN Reason: SOB/Wheezing Albuterol/Ipratropium (Duoneb) 3 ml INHALATION Q4H.RT [facility] Last Admin: 08/24/20 07:57 Dose: 3 ml Documented by: Apixaban (Eliquis) 5 mg PO BID [facility] Last Admin: 08/24/20 10:44 Dose: 5 mg Documented by: Aspirin (Aspirin, Baby) 81 mg PO DAILY@0800 [facility] Last Admin: 08/24/20 07:50 Dose: 81 mg Documented by: Atorvastatin Calcium (Lipitor) 40 mg PO QHS [facility] Last Admin: 08/23/20 21:09 Dose: 40 mg Documented by: Buspirone HCl (Buspar) 10 mg PO BID [facility] Last Admin: 08/24/20 10:44 Dose: 10 mg Documented by: Dextrose (D50w Syringe) 0 gm IV X1 PRN; Protocol PRN Reason: Hypoglycemia Diltiazem HCl (Cardizem) 60 mg PO Q6 [facility] Last Admin: 08/24/20 10:45 Dose: 60 mg Documented by: Famotidine (Pepcid) 20 mg PO BID [facility] Last Admin: 08/24/20 10:47 Dose: 20 mg Documented by: Furosemide (Lasix) 40 mg PO BID@1000,1800 [facility] Last Admin: 08/24/20 10:47 Dose: 40 mg Documented by: Gabapentin (Neurontin) 900 mg PO TIDCM [facility] Last Admin: 08/24/20 10:46 Dose: 900 mg Documented by: Glucagon () 1 mg IM .X1 PRN PRN Reason: Hypoglycemia Hydralazine HCl (Apresoline) 50 mg PO TID PRN PRN Reason: SBP > 160 Hydrochlorothiazide (Hctz) 25 mg PO DAILY [facility] Last Admin: 08/24/20 10:45 Dose: 25 mg Documented by: Sodium Chloride () 250 mls @ 15 mls/hr IV .[id number] PRN PRN Reason: Additional IVPB Infusion Last Infusion: 08/21/20 14:37 Dose: Infused Documented by: Ceftriaxone Sodium 2 gm/ (Sodium Chloride) 50 mls @ 100 mls/hr IV Q24 [facility] Stop: 08/26/20 10:01 Last Infusion: 08/23/20 19:00 Dose: Infused Documented by: Insulin Glargine (Lantus (Bkc)) 90 units SC BID [facility] Last Admin: 08/23/20 21:11 Dose: 90 u Documented by: Insulin Human Lispro (Humalog Kwikpen (Bkc)) 0 unit SC ACHS [facility]; Protocol Last Admin: 08/24/20 07:47 Dose: 3 units Documented by: Insulin Human Lispro (Humalog Kwikpen (Bkc)) 10 unit SC TIDAC [facility] Last Admin: 08/24/20 07:48 Dose: 10 u Documented by: Labetalol HCl (Trandate) 20 mg IV Q4H PRN PRN PRN Reason: BLOOD PRESSURE ELEVATION Last Admin: 08/23/20 01:26 Dose: 20 mg Documented by: Lisinopril (Zestril) 20 mg PO DAILY [facility] Last Admin: 08/24/20 10:46 Dose: 20 mg Documented by: Naloxone HCl (Narcan) 0.02 mg IV Q1M PRN PRN Reason: RR <10 and pt unresponsive Ondansetron HCl (Zofran) 4 mg IV Q8H PRN PRN PRN Reason: NAUSEA/VOMITING Last Admin: 08/20/20 03:53 Dose: 4 mg Documented by: Prednisone () 40 mg PO DAILY@0800 [facility] Stop: 08/29/20 08:01 Last Admin: 08/24/20 07:51 Dose: 40 mg Documented by: Senna/Docusate Sodium (Senokot-S, Gill-Colace) 2 tablet PO BID [facility] Last Admin: 08/24/20 10:45 Dose: 2 tablet Documented by: Sodium Chloride () 10 - 40 ml IV UD PRN PRN Reason: SALINE FLUSH Last Admin: 08/23/20 08:25 Dose: 20 ml Documented by: Discharge Activity: - - Encourage routine mild activity, ambulation in your home. Please continue aggressive incentive spirometer usage at home 10x/hr 7a- 7p. Continue supplemental oxygenation. May resume sexual activity in: 10-14 days - Once acute presentation resolved. Weight Bearing Status: Weight bearing as tolerated Call your doctor if you observe: Fever of 101 or Higher, Inability to urinate, Inability to have a bowel movement, Shortness of breath, Dizziness, Fainting spells, Chest pain, Uncontrolled pain Home Medications: Medications to take at Discharge Hydrochlorothiazide [Hctz] 25 mg PO DAILY 02/02/17 Multivit,Calc,Mins/Iron/Folic [Women's Daily Formula Caplet] 1 ea PO DAILY 03/26/17 Gabapentin [Neurontin] 900 mg PO TID 05/29/17 Dulaglutide [Trulicity] 0.5 ml SQ QWEEK MDD 0.5ml 06/08/18 Furosemide 40 mg PO BID 12/15/18 Omeprazole 40 mg PO DAILY 12/15/18 Metformin HCl 1,000 mg PO DAILY 01/04/19 lisinopril 20 mg tablet 20 mg PO DAILY tab 03/01/20 loratadine 10 mg tablet 10 mg PO DAILY PRN tab 03/01/20 Apixaban [Eliquis] 5 mg PO BID 08/20/20 Aspirin E.C. [Ecotrin] 81 mg PO DAILY@0800 08/20/20 Atorvastatin Calcium 40 mg PO QHS 08/20/20 Compression Socks, Medium [Futuro Restoring] 1 ea MC DAILY 08/20/20 Diltiazem CD [Cardizem CD] 120 mg PO DAILY 08/20/20 Albuterol Aerosols [Ventolin Aerosols] 2.5 mg INHALATION Q2H PRN PRN #1 box 08/24/20 Albuterol IH (ProAir) [Proair Hfa] 1 puff INHALATION Q4H PRN PRN #1 inhaler 08/24/20 Cefdinir [Omnicef [equiv]] 300 mg PO Q12H #6 cap 08/24/20 Fluticasone/Salmeterol [Advair 250-50 Diskus] 1 ea IH BID #1 blst.w.dev 08/24/20 Insulin Glargine [Lantus SoloStar Pen] 90 units SUBCUT BID #1 pen 08/24/20 Insulin Lispro [Humalog KwikPen] 20 unit SUBCUT TIDAC #1 insuln.pen 08/24/20 Insulin Lispro [Humalog KwikPen] See Protocol SUBCUT ACHS #1 insuln.pen 08/24/20 Ipratropium/Albuterol Sulfate [Duoneb] 3 ml INHALATION Q4H.RT #1 box 08/24/20 Nebulizer [Lc Star] 1 MC UD 30 Days #1 ea 08/24/20 Oxygen, Home [Home Oxygen] 2 lpm NASAL DAILY 30 Days #30 device 08/24/20 Senna/Docusate Sodium [Senokot-S] 2 tab PO BID tab 08/24/20 busPIRone [Buspar] 10 mg PO BID #60 tab 08/24/20 predniSONE tablet 40 mg PO DAILY@0800 #5 tab 08/24/20 Bad tablePrimary Care Physician: Tino Oreilly MD [Primary Care Provider] - Please follow up with your Primary Care Physician in: Follow-up within 2-3 days to review admission. Please Follow Up With: Nelly Hunter NP-C - ' When: Please follow-up with Pulmonary [facility] in 2 weeks. Call sooner if any issues. Patient Instructions: Hyperglycemia (High Blood Sugar), Hypoglycemia (Low Blood Sugar), What Is Type 2 Diabetes?, How to Check Your Blood Sugar, Using Injected Insulin, Oral Therapy for Type 2 Diabetes, Types of Insulin, Healthy Meals for Diabetes, Diabetes: Understanding Carbohydrates, What Is COPD?, Using Oxygen Safely, Chronic Lung Disease: Tips for Quitting Smoking, What Is Pneumonia?, Using Oxygen at Home, Preventing Pneumonia, Treating Pneumonia, COPD: Using Inhalers, Treatments for COPD, ED COPD Flare Disposition: Home Minutes spent on discharge:: 35 Patient Condition:: Fair Medical Necessity - Tobacco Use Smoking Status: Current every day smoker Meaningful Use Info Meaningful Use Diagnoses (Choose all that apply): None applicable Inpatient E&M: 79471 Disch Hosp
--- NOTE | 2020-08-24 11:19 | CASEMGMT ---
Addendum entered by Brandy Suresh 08/24/20 15:14: 1245 Call from Norman VENTURA and states pt is stating that nebulizer meds are not being filled by [facility] retail pharmacy at this time and pt wonders how to get. Call to Monica in [facility] retail pharmacy and she states all pt's meds have been filled at this time but they cannot fill the nebulizer script that was sent down. Monica and Norman VENTURA aware that nebulizer has been set up thru [facility] [place] and will be delivered to pt once home, voice understanding. Norman RN and pt voice no further questions at this time and pt will be discharging at this time. Chris VENTURA CM Addendum entered by Brandy Suresh 08/24/20 11:57: Pt also states is interested in a WW at this time and script, along with d/c instructions faxed to [facility] [place] at this time. Call to [facility] [place] and they state they will set up nebulizer/WW once pt is home and state no further concerns at this time. [facility] is aware that meds to go thru [facility] pharmacy and pt to discharge today, voice understanding. Chris VENTURA CM Original Note: Call to [facility] and per Kath, pt's home oxygen order is for 2liters at rest and 3 liters with ambulation. She states that pt does till owe over $700 from the bipap from 2 years ago. She states they did refill pt tanks in May 2020 but that account is on hold at this time. Dr. Mas states that pt needs a nebulizer at discharge and [facility] states they will not be able to fill for pt at this time. Pt aware and order to [facility] [place] at this time for nebulizer. Therapy is recommending OP therapy for pt at this time and pt is agreeable to [facility] OP therapy at this time. Script faxed to [facility] and copy to pt at this time. [facility]. Pt does not currently have a bipap mask d/t all of same and call to Annie in sleep lab and she states that someone is on the way over with a bipap mask for pt at this time. Pt states that her daughter is on working on getting further bipap supplies and a shower chair at this time. Pt voices no further questions/concerns/needs at this time. Per Dr. Mas, pt's meds were sent to [facility] retail pharmacy so that pt can take home with her at this time. Pt is agreeable. Chris VENTURA CM
[2020-08-24 11:26] LABS: Bedside Glucose 233 mg/dL (70-110)
--- NOTE | 2020-08-24 11:42 | SLEEP ---
I was asked to see the patient to see what she needs for BiPAP supplies to be able to wear at home after d/c. The patient is well known to the sleep lab. She needs to replace her water chamber, tubing and mask to be able to wear at home. She brought in her machine back in January to the sleep lab for a mask fitting and the water chamber and tubing had mold. I attempted to get [facility] to replace the supplies, but her account was in collections. Angel said they would get her supplies if she got on a payment plan with the collection agency. This info was given to the patient 2 times in January from sleep lab staff. She never called to get on a payment plan. She did not attempt to wear her bipap. She has not worn her bipap in a year and a half. Per the pt, her machine is in storage and her daughter is going to try and locate. I called [facility]. They have a water chamber and tubing in stock. The pt is going to send her daughter over to corn picker the items. They have an open package [employer] oxy tubing for her machine that they will give the pt free of charge (normally $70). All her daughter has to pay for is the water chamber. She can monorail hooker her concentrator directly into her bipap if needed with the [employer]ateline oxy tubing. I gave her a medium [employer] Quattro air full face mask setup to take home and use until she can once again get established with an equipment company.
--- NOTE | 2020-08-25 14:02 | CASEMGMT ---
LORENZO CM DC PHONE CALL DC DATE: 08/24/20 DC DISPOSITION: Home DC DIAGNOSIS: Sepsis, Respiratory Failure LACE/STRATA: 11/02 F/U APPTS MADE PRIOR TO DC: no PRESCRIPTIONS ACQUIRED BY PT: yes attempted call to patient's phone. No answer and no messaging with name identifier. Wayne SIMPSON RN ACM
== END 2020-08-24 13:35 | disposition home or self-care (01) | DRG 720 ==
LOC: ED 21:13 → ICU 23:35
PROVIDERS: Internal Medicine; Admitting Provider Hospitalist; Emergency Provider Emergency Medicine; PCP Family Medicine; Referring Provider Hospitalist; Visit Provider Family Medicine
DX: A41.9 Sepsis, unspecified organism (principal); R65.20 Severe sepsis without septic shock; J96.21 Acute and chronic respiratory failure with hypoxia; J96.22 Acute and chronic respiratory failure with hypercapnia; N17.0 Acute kidney failure with tubular necrosis; G92 Toxic encephalopathy; T40.2X1A Poisoning by other opioids, accidental (unintentional), initial encounter; J44.0 Chronic obstructive pulmonary disease with (acute) lower respiratory infection; J18.9 Pneumonia, unspecified organism; J44.1 Chronic obstructive pulmonary disease with (acute) exacerbation; I27.20 Pulmonary hypertension, unspecified; E87.70 Fluid overload, unspecified; E11.00 Type 2 diabetes mellitus with hyperosmolarity without nonketotic hyperglycemic-hyperosmolar coma (NKHHC); E11.40 Type 2 diabetes mellitus with diabetic neuropathy, unspecified; E87.4 Mixed disorder of acid-base balance; I25.10 Atherosclerotic heart disease of native coronary artery without angina pectoris; I10 Essential (primary) hypertension; E78.5 Hyperlipidemia, unspecified; K21.9 Gastro-esophageal reflux disease without esophagitis; F32.9 Major depressive disorder, single episode, unspecified; F41.9 Anxiety disorder, unspecified; F17.200 Nicotine dependence, unspecified, uncomplicated; E66.2 Morbid (severe) obesity with alveolar hypoventilation; Z68.44 Body mass index [BMI] 60.0-69.9, adult; Z91.19 Patient's noncompliance with other medical treatment and regimen; Z79.01 Long term (current) use of anticoagulants; Z79.82 Long term (current) use of aspirin; Z79.4 Long term (current) use of insulin; Z79.899 Other long term (current) drug therapy; I25.2 Old myocardial infarction; Z86.711 Personal history of pulmonary embolism
CPT/HCPCS: 31720; 36415; 36600; 70450; 71045; 71250; 80048; 80053; 80307; 81001; 82550; 82803; 82962; 83036; 83605; 83735; 83880; 84100; 84478; 84484; 84703; 85025; 85027; 87040; 87070; 87086; 87205; 87449; 87635; 93005; 94002; 94003; 94640; 94660; 97110; 97116; 97162; 97166; 97530; 97535; 97802; 97803; 99251; 99285; 99406; C9803; J7030; J7040; J7050; A4216; G0463; J0696; J1940; J2405; J3010; U0003

== ENCOUNTER 2021-07-14 17:57 | Emergency (ER) | payer MEDICARE, MEDICAID, SELFPAY ==
[2021-03-26 11:14] VITALS: BMI 58.6
[2021-07-14] VITALS (8 sets, daily range): BP systolic 127–185; BP diastolic 74–84; PULSE 74–102; RESP 15–22; TEMP 36.3; O2SAT 2–96; BMI 60.1
--- NOTE | 2021-07-14 18:31 | EKG12_ITS ---
Test Reason : CP Blood Pressure : / mmHG Vent. Rate : 091 BPM Atrial Rate : 091 BPM P-R Int : 140 ms QRS Dur : 082 ms QT Int : 364 ms P-R-T Axes : 047 -05 060 degrees QTc Int : 447 ms Normal sinus rhythm with sinus arrhythmia Normal ECG Confirmed by HASMUKH LORA, LILIANA ([id number]), industrial editor DANIELE MALDONADO ([id number]) on 07/17/2021 9:49:25 AM Referred By: GIANCARLO PHYSICIAN Confirmed By:LILIANA NOE MD
--- NOTE | 2021-07-14 18:37 | EDS_ITS ---
HPI History of Present Illness Chief Complaint: Chest Pain Informant: patient Narrative Narrative: 46-year-old female presents the emergency room with dyspnea. Symptoms began yesterday. She is chronically on home oxygen at 2 L but began to notice that her pulse ox was dropping into the 80s. She states that yesterday she had some intermittent chest pain. She states it is more of a discomfort last about 5 minutes and resolved this happened several occasions. No fevers. She denies any change in cough or sputum production. She states that she sees Dr. Dumont from pulmonology. She notes a history of obstructive sleep apnea. She has a albuterol inhaler for as use needed at home. No reported fevers. [facility] Medical History (Updated 07/14/21 @ 22:[address] Ilan Salinas, ) Abscess Abscess of vulva Acute encephalopathy KERRY (acute kidney injury) Altered mental status Anxiety CAP (community acquired pneumonia) Cellulitis Cellulitis of leg Chest pain Chronic respiratory failure with hypoxia Dyspnea on exertion Essential hypertension Hidradenitis History of left heart catheterization (LHC) (~01/05/19) History of MRSA infection Hyperglycemia Hyperglycemia due to type 2 diabetes mellitus Hyperlipidemia Morbid obesity Necrotizing soft tissue infection Non-healing open wound of left groin NSTEMI (non-ST elevated myocardial infarction) 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 Old myocardial infarction Open wound of vulva with complication Opiate overdose Pulmonary embolism Respiratory failure with hypoxia Restrictive lung disease secondary to obesity Sepsis Soft tissue abscess of inguinal region Tobacco abuse Type 2 diabetes mellitus Home Medications hydrochlorothiazide 25 mg PO DAILY 02/02/17 [History Last Taken 12/14/18] hdhpdhuo-kdtb-UC-calcium-mins 1 ea PO DAILY 03/26/17 [History Last Taken 12/14/18] gabapentin 900 mg PO TID 05/29/17 [History Last Taken 12/14/18 400 mg] dulaglutide 0.5 ml SQ QWEEK MDD 0.5ml 06/08/18 [History Last Taken 12/08/18] furosemide 40 mg PO BID 12/15/18 [History Last Taken 12/14/18] omeprazole 40 mg PO DAILY 12/15/18 [History Last Taken 12/14/18] loratadine 10 mg tablet 10 mg PO DAILY PRN tab 03/01/20 [History Last Taken Unknown] apixaban 5 mg PO BID 08/20/20 [History Last Taken Unknown] aspirin 81 mg PO DAILY@0800 08/20/20 [History Last Taken Unknown] atorvastatin 40 mg PO QHS 08/20/20 [History Last Taken Unknown] diltiazem HCl 120 mg PO DAILY 08/20/20 [History Last Taken Unknown] Oxygen, Home [Home Oxygen] 2 lpm NASAL DAILY 30 Days #30 device 08/24/20 [Rx Last Taken Unknown] albuterol sulfate 1 puff INHALATION Q4H PRN PRN #1 inhaler 08/24/20 [Rx Last Taken Unknown] albuterol sulfate 2.5 mg INHALATION Q2H PRN PRN #1 box 08/24/20 [Rx Last Taken Unknown] buspirone 10 mg PO BID #60 tab 08/24/20 [Rx Last Taken Unknown] fluticasone propion-salmeterol 1 ea IH BID #1 blst.w.dev 08/24/20 [Rx Last Taken Unknown] famotidine 20 mg tablet 20 mg PO QHS PRN tablet 03/26/21 [History Last Taken Unknown] fluoxetine 20 mg capsule 20 mg PO DAILY cap 03/26/21 [History Last Taken Unknown] insulin detemir U-100 100 unit/mL (3 mL) subcutaneous pen 100 unit SC BID ml 03/26/21 [History Last Taken Unknown] insulin lispro 100 unit/mL subcutaneous pen 26 unit SUBCUT TIDAC ml 03/26/21 [History Last Taken Unknown] ipratropium 0.5 mg-albuterol 3 mg (2.5 mg base)/3 mL nebulization soln 3 ml INHALATION Q4H PRN ml 03/26/21 [History Last Taken Unknown] lisinopril 10 mg tablet 10 mg PO DAILY tablet 03/26/21 [History Last Taken Unknown] metformin 500 mg tablet,extended release 24 hr 2,000 mg PO DAILY tablet 03/26/21 [History Last Taken Unknown] metoprolol succinate 25 mg tablet,extended release 24 hr 25 mg PO DAILY tablet 03/26/21 [History Last Taken Unknown] Allergy/AdvReac Type Severity Reaction Status Date / Time cyclobenzaprine HCl Allergy Hives Verified 03/26/21 11:17 [From Flexeril] venlafaxine [From Effexor] AdvReac Severe unknown Verified 03/26/21 11:17 Family History Father CVA (cerebral vascular accident) Heart disease Diabetes Mother Thyroid disorder Surgical History H/O arthroscopic knee surgery History of delivery History of cholecystectomy Social History Smoking Status: Current every day smoker tobacco type: cigarettes second hand exposure: Yes alcohol intake: never substance use type: does not use caffeine: Yes Type: carbonated beverages Number of servings: 1 and coffee Number of servings: 1 ROS ROS ED Constitutional Constitutional ED: Denies chills or weight loss Eyes Eyes: Denies change in vision or diplopia ENT ENT ED: Denies ear pain, rhinorrhea or sore throat Cardiovascular Cardiovascular: Reports chest pain; Denies orthopnea, palpitations or racing heartbeat Respiratory/Chest Respiratory/Chest: Reports cough, dyspnea, sputum and other Details: No change in cough and sputum production from baseline ; Denies orthopnea Gastrointestinal Gastrointestinal: Denies abdominal pain, diarrhea, nausea or vomiting Genitourinary Genitourinary ED: Denies dysuria, hematuria or urinary frequency Musculoskeletal Musculoskeletal: Denies arthralgias or myalgias Integumentary Denies abscess or rash Neurologic Neurologic: Denies headache(s) or weakness Psychiatric Psychiatric: Denies anxiety, depression, suicidal ideation or suicidal thoughts Endocrine Endocrinology: Denies polydipsia, polyphagia or polyuria Allergic/Immunologic Allergic/Immunologic ED: Denies mouth swelling, tongue swelling or urticaria EXAM Physical Exam Const Vital Signs: 07/14/21 17:58 07/14/21 18:01 07/14/21 18:18 Temperature 97.3 F L 97.3 F L Temperature Source Temporal Temporal Pulse Rate 102 H 102 H Respiratory Rate 22 H 22 H Respiratory Effort Short of Breath Labored Respiratory Pattern Blood Pressure 185/84 H 185/84 H Blood Pressure Mean 117 117 Pulse Ox 88 89 Oxygen Delivery Method Nasal Cannula Nasal Cannula Oxygen Flow Rate (L/min) 4 4 07/14/21 18:38 07/14/21 18:43 07/14/21 19:05 Temperature Temperature Source Pulse Rate 88 Respiratory Rate 17 Respiratory Effort Respiratory Pattern Normal Blood Pressure Blood Pressure Mean Pulse Ox 2 93 Oxygen Delivery Method Nasal Cannula Nasal Cannula Oxygen Flow Rate (L/min) 07/14/21 21:03 Temperature Temperature Source Pulse Rate 82 Respiratory Rate 18 Respiratory Effort Respiratory Pattern Blood Pressure Blood Pressure Mean Pulse Ox 91 Oxygen Delivery Method Room Air Oxygen Flow Rate (L/min) Positive well nourished, well developed and obese General Appearance ED: well developed Nutritional Appearance: obese HEENT Reports normocephalic, head/scalp atraumatic and moist mucous membranes Eyes PERRL and EOMs intact bilaterally Neck no lymphadenopathy, supple and no JVD Resp normal respiratory effort and clear to auscultation bilaterally Cardio regular rate, regular rhythm and no murmurs GI normal to inspection, nondistended, normoactive bowel sounds and non-tender Palpation: soft Back/Spine no CVA tenderness and normal ROM Extremity normal to inspection General Extremety ED: Negative for edema General Extremity: Negative for edema Neuro oriented x3 and CN's II-XII intact bilaterally Sensorium / Orientation: alert Motor Exam: strength 5/5 throughout Psych mental status grossly normal Mood & Affect: Negative for depressed or tearful Skin no rashes or lesions noted and no wounds MDM MDM MDM Narrative Medical decision making narrative: My interpretation of the chest x-ray is mild pulmonary edema. Patient's blood work shows a BNP of 10.4. Troponin negative. She has not had an increase in her oxygen requirements she is she been here. CTA of the chest was obtained which shows possible pulmonary edema. Patient ambulated and did not desat and she actually ambulated on room air. We are going to increase her Lasix to 80 mg twice a day for 5 days.. Lab Data Attestation: I reviewed the patient's lab results. Labs: Laboratory Results - last 24 hr 07/14/21 07/14/21 07/14/21 18:17 18:17 18:17 WBC 9.9 RBC 5.10 Hgb 13.7 Hct 46.3 MCV 90.8 MCH 26.9 L MCHC 29.6 L RDW Std Deviation 52.2 H RDW Coeff of Darrion 15.8 H Plt Count 255 MPV 10.1 Immature Gran % (Auto) 0.300 Neut % (Auto) 68.2 Lymph % (Auto) 24.7 [place] % (Auto) 4.3 Eos % (Auto) 1.8 Baso % (Auto) 0.7 Absolute Neuts (auto) 6.8 Absolute Lymphs (auto) 2.45 Nucleated RBC % 0 Sodium 134 L Potassium 3.6 Chloride 95 L Carbon Dioxide 36.0 H Anion Gap 3 L BUN 15 Creatinine 0.79 Estim Creat Clear Calc 81.77 Est GFR (MDRD) Af Amer 102 Est GFR (MDRD) Non-Af 84 BUN/Creatinine Ratio 19.0 Glucose 287 H Calcium 8.6 Total Bilirubin 0.30 AST 17 ALT 26 Alkaline Phosphatase 97 Troponin I High Sens 35.6 B-Natriuretic Peptide 10.4 Total Protein 7.7 Albumin 3.4 Globulin 4.3 H Albumin/Globulin Ratio 0.8 L Radiography Diagnostic Testing: Radiology Impression Chest X-Ray 07/14/21 18:43 IMPRESSION: Mild vascular congestion suggesting fluid overload/CHF. Cardiomegaly. Electronically Signed: Alexi Guillen MD ([place]) at 19:08 EDT , Service support , Chest CTA 07/14/21 20:53 IMPRESSION: No demonstrated pulmonary embolism or arterial dissection. Bilateral groundglass and patchy opacities concerning for underlying edema and/or an infectious process. Electronically Signed: Vianey Golden MD at 21:41 EDT Tel , Service support , EKG Initial EKG: Attestation: I personally reviewed and interpreted this EKG as follows: Comments: Sinus rhythm with sinus arrhythmia ventricular rate of 91 bpm Discharge Plan Triage Chief Complaint: Chest Pain ED Provider: Ilan Salinas Dx/Rx/DC Orders Clinical Impression: Acute dyspnea, Congestive heart failure Instructions: Pulmonary Edema Prescriptions: No Action loratadine 10 mg tablet 10 mg PO DAILY PRN (Reason: Allergies) RF: 0 insulin lispro 100 unit/mL insulin pen 26 unit subcut TIDAC RF: 0 ipratropium-albuterol 0.5 mg-3 mg(2.5 mg base)/3 mL solution for nebulization 3 ml inhalation Q4H PRNRF: 0 lisinopril 10 mg tablet 10 mg PO DAILY RF: 0 metformin 500 mg tablet extended release 24 hr 2,000 mg PO DAILY RF: 0 fluoxetine 20 mg capsule 20 mg PO DAILY RF: 0 metoprolol succinate 25 mg tablet extended release 24 hr 25 mg PO DAILY RF: 0 famotidine 20 mg tablet 20 mg PO QHS PRN (Reason: STOMACH) RF: 0 insulin detemir U-100 100 unit/mL (3 mL) insulin pen 100 unit SC BID RF: 0 hydrochlorothiazide 25 MG tablet 25 mg PO DAILY RF: 0 orpqmzty-hkxf-CM-calcium-mins 1 EACH tablet 1 ea PO DAILY RF: 0 gabapentin 300 MG capsule 900 mg PO TID RF: 0 dulaglutide 1.5 MG/0.5 ML pen injector 0.5 ml SQ QWEEK MDD 0.5ml RF: 0 furosemide 40 MG tablet 40 mg PO BID RF: 0 omeprazole 40 MG capsule,delayed release(DR/EC) 40 mg PO DAILY RF: 0 atorvastatin 40 MG tablet 40 mg PO QHS RF: 0 aspirin 81 MG tablet 81 mg PO DAILY@0800 RF: 0 diltiazem HCl 120 MG capsule 120 mg PO DAILY RF: 0 apixaban 5 MG tablet 5 mg PO BID RF: 0 buspirone 5 MG tablet 10 mg PO BID Qty: 60 RF: 0 albuterol sulfate 2.5 MG/3 ML solution for nebulization 2.5 mg inhalation Q2H PRN PRN (Reason: SOB/Wheezing) Qty: 1 RF: 0 fluticasone propion-salmeterol 1 EACH blister with device 1 ea IH BID Qty: 1 RF: 0 albuterol sulfate 1 PUFF inhaler 1 puff inhalation Q4H PRN PRN (Reason: Dyspnea, wheezing) Qty: 1 RF: 0 Oxygen, Home [Home Oxygen] 2 lpm NASAL DAILY 30 Days Qty: 30 RF: 0 Primary Care Provider: Tino Oreilly Referrals: Tino Oreilly MD [Primary Care Provider] - 5-7 Days Activity Restrictions/Additional Instructions: Increase your Lasix to 80 mg twice a day for the next 5 days. Return if worsening or concern Disposition Disposition: Home, Self Care
[2021-07-14 18:40] LABS: Absolute Lymphocyte Count 2.45 X10^3/uL (0.83-4.51); Absolute Neutrophil Count 6.8 X10^3/uL (2.0-7.7); Basophil# 0.07 X10^3/uL; Basophil% 0.7 % (0-1); Eosinophil# 0.18 X10^3/uL; Eosinophils% 1.8 % (0-5); Hematocrit 46.3 % (37-47); Hemoglobin 13.7 g/dL (12.0-15.0); Lymphocyte # 2.45 X10^3/ul (0.83-4.51); Lymphocyte % 24.7 % (19-41); Mean Corp Hgb Conc 29.6 g/dL (32-36); Mean Corpuscular Hgb 26.9 pg (27.0-32.0); Mean Corpuscular Volume 90.8 fL (81-99); Mean Platelet Vol. 10.1 fl (6.2-12.0); Monocyte# 0.43 X10^3/uL; Monocyte% 4.3 % (0-10); NRBC Flagged by Analyzer 0 % (0-5); Neutrophil # 6.77 X10^3/uL (2.7-7.7); Neutrophil % 68.2 % (47-70); Platelet Count 255 K/mm3 (150-450); RBC Distribution Width CV 15.8 % (11.6-14.6); RBC Distribution Width SD 52.2 fl (35.1-43.9); White Blood Count 9.9 K/mm3 (4.4-11.0)
[2021-07-14] MEDS: Ipratropium/Albuterol Sulfate 3 ML AMPUL.NEB INHALATION (18:43)
--- NOTE | 2021-07-14 18:43 | RAD_ITS ---
STUDY: X-RAY CHEST REASON FOR EXAM: Female, 46 years old. hypoxia TECHNIQUE: AP COMPARISON: 08/20/2020 FINDINGS: EKG leads project over the chest. No airspace consolidation. There is no demonstrated pleural abnormality. There is mild cardiac enlargement. Normal mediastinum and evi. Mild vascular congestion. Normal visualized aortic arch and descending thoracic aorta. Normal visualized thoracic spine. Normal visualized ribs, clavicles, and shoulders. There is no demonstrated abnormality of the visualized soft tissue structures of the upper abdomen. RAD/Chest 1 View (Portable) IMPRESSION: Mild vascular congestion suggesting fluid overload/CHF. Cardiomegaly. Electronically Signed: Alexi Guillen MD ([place]) at 19:08 EDT , Service support ,
[2021-07-14 18:53] LABS: ALB/GLOB Ratio 0.8 RATIO (0.9-2.4); AST(SGOT) 17 U/L (15-37); Alanine Aminotransfer ALT/SGPT 26 U/L (13-56); Albumin, Serum 3.4 g/dL (3.2-5.0); Alkaline Phosphatase 97 U/L (45-117); Anion Gap 3 (5-15); BUN 15 mg/dL (7-18); Calcium,Total 8.6 mg/dL (8.5-10.1); Chloride 95 mmol/L (98-107); Creatinine, Serum 0.79 mg/dL (0.55-1.02); EST Glomerular Filtration Rate 84 mL/min (>60); Est Glom Filt Rate - Afr Amer 102 mL/min (>60); Estimated Creatinine Clearance 81.77 ml/min; Globulin 4.3 g/dL (2.2-4.2); Glucose 287 mg/dL (74-106); Potassium 3.6 mmol/L (3.5-5.1); Protein, Total 7.7 g/dL (6.4-8.2); Sodium Level 134 mmol/L (136-145); Troponin-I HS 35.6 pg/mL (3.0-53.7)
[2021-07-14 19:14] LABS: BNP,B-Type NATRIURETIC PEPTIDE 10.4 pg/mL (0-100)
--- NOTE | 2021-07-14 20:53 | CT_ITS ---
STUDY: CTA CHEST REASON FOR EXAM: Female, 46 years old. Hypoxia RADIATION DOSAGE (If Supplied By Facility): CTDIvol = ( 22.00 ) mGy, DLP = ( 846.56 ) mGycm TECHNIQUE: The examination was performed with the intravenous administration of IV 100mL Isovue-370. Post-processing of the angiographic images was performed, with multiplanar reformation and 3D reconstruction. Individualized dose optimization techniques were used for this CT. COMPARISON: 08/20/2020 FINDINGS: Normal enhancement of the main pulmonary artery and right and left pulmonary arteries. Normal enhancement of the bilateral peripheral pulmonary arteries. There is no demonstrated pulmonary embolism. Normal thoracic aorta and visualized great vessels. There is no demonstrated aortic dissection. Normal heart and pericardium. Normal mediastinum. Normal hilar regions. Normal visualized trachea and bronchi. There are groundglass and patchy opacities throughout the right lung and within the left mid and lower lung. Normal chest wall structures. There are degenerative changes of thoracic spine. The limited images of the upper abdomen demonstrate a stable low-attenuation left adrenal nodule suggestive of an underlying adenoma. CT/CTA Chest W/WO Contrast IMPRESSION: No demonstrated pulmonary embolism or arterial dissection. Bilateral groundglass and patchy opacities concerning for underlying edema and/or an infectious process. Electronically Signed: Vianey Golden MD at 21:41 EDT Tel , Service support ,
== END 2021-07-14 22:24 | disposition home or self-care (01) ==
PROVIDERS: Emergency Provider Emergency Medicine; PCP Family Medicine
DX: I11.0 Hypertensive heart disease with heart failure (principal); I50.9 Heart failure, unspecified; I25.2 Old myocardial infarction; E11.65 Type 2 diabetes mellitus with hyperglycemia; E78.5 Hyperlipidemia, unspecified; E66.01 Morbid (severe) obesity due to excess calories; G47.33 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 (adult) (pediatric); F17.210 Nicotine dependence, cigarettes, uncomplicated; Z79.01 Long term (current) use of anticoagulants; Z79.4 Long term (current) use of insulin; Z79.82 Long term (current) use of aspirin; Z79.899 Other long term (current) drug therapy
CPT/HCPCS: 71045; 71275; 80053; 83880; 84484; 85025; 93005; 94640; 99284; Q9967

== ENCOUNTER 2021-07-17 14:44 | Inpatient (IN) | payer MEDICARE, MEDICAID, SELFPAY ==
[2021-07-14 17:58] VITALS: BMI 60.1
[2021-07-17] VITALS (15 sets, daily range): BP systolic 102–134; BP diastolic 66–115; PULSE 87–108; RESP 16–24; TEMP 35.7–37.1; O2SAT 84–95; BMI 57.2; BMI 57.4
--- NOTE | 2021-07-17 15:12 | EKG12_ITS ---
Test Reason : Blood Pressure : / mmHG Vent. Rate : 090 BPM Atrial Rate : 090 BPM P-R Int : 132 ms QRS Dur : 092 ms QT Int : 378 ms P-R-T Axes : 050 -18 058 degrees QTc Int : 462 ms Normal sinus rhythm Normal ECG Confirmed by HASMUKH LORA, LILIANA ([id number]), editorial assistant DANIELE MALDONADO ([id number]) on 07/18/2021 1:38:13 PM Referred By: TOM Confirmed By:LILIANA NOE MD
[2021-07-17 15:22] LABS: Absolute Lymphocyte Count 2.62 X10^3/uL (0.83-4.51); Absolute Neutrophil Count 8.3 X10^3/uL (2.0-7.7); Basophil% 0.8 % (0-1); Eosinophil# 0.16 X10^3/uL; Eosinophils% 1.4 % (0-5); Hematocrit 50.2 % (37-47); Hemoglobin 14.9 g/dL (12.0-15.0); Lymphocyte # 2.62 X10^3/ul (0.83-4.51); Lymphocyte % 22.1 % (19-41); Mean Corp Hgb Conc 29.7 g/dL (32-36); Mean Corpuscular Hgb 26.6 pg (27.0-32.0); Mean Corpuscular Volume 89.5 fL (81-99); Mean Platelet Vol. 10.1 fl (6.2-12.0); Monocyte# 0.58 X10^3/uL; Monocyte% 4.9 % (0-10); NRBC Flagged by Analyzer 0 % (0-5); Neutrophil # 8.32 X10^3/uL (2.7-7.7); Neutrophil % 70.4 % (47-70); Platelet Count 326 K/mm3 (150-450); RBC Distribution Width CV 15.9 % (11.6-14.6); RBC Distribution Width SD 52.6 fl (35.1-43.9); Red Blood Count 5.61 M/mm3 (4.2-5.4); White Blood Count 11.8 K/mm3 (4.4-11.0)
[2021-07-17] MEDS: Ipratropium/Albuterol Sulfate 3 ML AMPUL.NEB INHALATION (15:27)
--- NOTE | 2021-07-17 15:30 | RAD_ITS ---
STUDY: X-RAY CHEST REASON FOR EXAM: Female, 46 years old. Dyspnea TECHNIQUE: Single AP portable view of the chest. COMPARISON: Comparison is made with prior study dated 07/14/2021. FINDINGS: EKG electrodes are seen. The lungs are clear and expanded. There is no demonstrated pleural abnormality. Normal size heart. Normal mediastinum and evi. Normal visualized pulmonary arteries. Normal visualized aortic arch and descending thoracic aorta. Normal visualized thoracic spine. Normal visualized ribs, clavicles, and shoulders. There is no demonstrated abnormality of the visualized soft tissue structures of the upper abdomen. RAD/Chest 1 View (Portable) IMPRESSION: Normal x-ray examination of the chest. Electronically Signed: Dylan Gan MD at 15:43 EDT , Service support ,
[2021-07-17 15:39] LABS: BNP,B-Type NATRIURETIC PEPTIDE 2.6 pg/mL (0-100)
[2021-07-17 15:40] LABS: ALB/GLOB Ratio 0.7 RATIO (0.9-2.4); AST(SGOT) 48 U/L (15-37); Alanine Aminotransfer ALT/SGPT 34 U/L (13-56); Albumin, Serum 3.4 g/dL (3.2-5.0); Alkaline Phosphatase 92 U/L (45-117); Anion Gap 3 (5-15); BUN 15 mg/dL (7-18); BUN/Creat Ratio 18.2 RATIO (10-20); Calcium,Total 9.3 mg/dL (8.5-10.1); Chloride 90 mmol/L (98-107); Creatinine, Serum 0.83 mg/dL (0.55-1.02); EST Glomerular Filtration Rate 80 mL/min (>60); Est Glom Filt Rate - Afr Amer 97 mL/min (>60); Estimated Creatinine Clearance 77.83 ml/min; Globulin 4.7 g/dL (2.2-4.2); Glucose 291 mg/dL (74-106); Potassium 3.9 mmol/L (3.5-5.1); Protein, Total 8.1 g/dL (6.4-8.2); Sodium Level 131 mmol/L (136-145); Troponin-I HS 26.9 pg/mL (3.0-53.7)
--- NOTE | 2021-07-17 16:51 | ED.VIS.DYS ---
HPI History of Present Illness Chief Complaint: Shortness of Breath Informant: patient Onset/Context/Timing Onset: Days (4) Context: gradual Timing: Intermittent Worsened by: Nothing Relieved by: Nothing Associated Symptoms Negative for cough, rhinorrhea, post nasal drip, ear pain, fever, sore throat or chills Chest Pain: Positive for Intermittent and Sharp Narrative Narrative: Patient presents with shortness of breath that has been getting worse over the past 4 days. Patient was seen here 3 days ago and had labs, chest x-ray, and CTA of the chest which were all negative. At that time, the patient was able to ambulate on room air and was not hypoxic. Patient is normally on 2 L nasal cannula at home. Patient states that her sats have been dropping into the 70s and 80s while on 2 L at home. Patient denies any exposures to COVID-19. Patient is not vaccinated. Patient does admit to some intermittent chest pain. Patient states it last for few minutes and then goes away. Patient describes it as sharp. Patient denies any cough. [facility] Medical History Abscess Abscess of vulva Acute encephalopathy KERRY (acute kidney injury) Altered mental status Anxiety CAP (community acquired pneumonia) Cellulitis Cellulitis of leg Chest pain Chronic respiratory failure with hypoxia Dyspnea on exertion Essential hypertension Hidradenitis History of left heart catheterization (LHC) (~01/05/19) History of MRSA infection Hyperglycemia Hyperglycemia due to type 2 diabetes mellitus Hyperlipidemia Morbid obesity Necrotizing soft tissue infection Non-healing open wound of left groin NSTEMI (non-ST elevated myocardial infarction) 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 Old myocardial infarction Open wound of vulva with complication Opiate overdose Pulmonary embolism Respiratory failure with hypoxia Restrictive lung disease secondary to obesity Sepsis Soft tissue abscess of inguinal region Tobacco abuse Type 2 diabetes mellitus Home Medications hydrochlorothiazide 25 mg PO DAILY 02/02/17 [History Last Taken 12/14/18] loewvpsc-ylil-US-calcium-mins 1 ea PO DAILY 03/26/17 [History Last Taken 12/14/18] gabapentin 900 mg PO TID 05/29/17 [History Last Taken 12/14/18 400 mg] dulaglutide 0.5 ml SQ QWEEK MDD 0.5ml 06/08/18 [History Last Taken 12/08/18] furosemide 40 mg PO BID 12/15/18 [History Last Taken 12/14/18] omeprazole 40 mg PO DAILY 12/15/18 [History Last Taken 12/14/18] loratadine 10 mg tablet 10 mg PO DAILY PRN tab 03/01/20 [History Last Taken Unknown] apixaban 5 mg PO BID 08/20/20 [History Last Taken Unknown] aspirin 81 mg PO DAILY@0800 08/20/20 [History Last Taken Unknown] atorvastatin 40 mg PO QHS 08/20/20 [History Last Taken Unknown] diltiazem HCl 120 mg PO DAILY 08/20/20 [History Last Taken Unknown] Oxygen, Home [Home Oxygen] 2 lpm NASAL DAILY 30 Days #30 device 08/24/20 [Rx Last Taken Unknown] albuterol sulfate 1 puff INHALATION Q4H PRN PRN #1 inhaler 08/24/20 [Rx Last Taken Unknown] albuterol sulfate 2.5 mg INHALATION Q2H PRN PRN #1 box 08/24/20 [Rx Last Taken Unknown] buspirone 10 mg PO BID #60 tab 08/24/20 [Rx Last Taken Unknown] fluticasone propion-salmeterol 1 ea IH BID #1 blst.w.dev 08/24/20 [Rx Last Taken Unknown] famotidine 20 mg tablet 20 mg PO QHS PRN tablet 03/26/21 [History Last Taken Unknown] fluoxetine 20 mg capsule 20 mg PO DAILY cap 03/26/21 [History Last Taken Unknown] insulin detemir U-100 100 unit/mL (3 mL) subcutaneous pen 100 unit SC BID ml 03/26/21 [History Last Taken Unknown] insulin lispro 100 unit/mL subcutaneous pen 26 unit SUBCUT TIDAC ml 03/26/21 [History Last Taken Unknown] ipratropium 0.5 mg-albuterol 3 mg (2.5 mg base)/3 mL nebulization soln 3 ml INHALATION Q4H PRN ml 03/26/21 [History Last Taken Unknown] lisinopril 10 mg tablet 10 mg PO DAILY tablet 03/26/21 [History Last Taken Unknown] metformin 500 mg tablet,extended release 24 hr 2,000 mg PO DAILY tablet 03/26/21 [History Last Taken Unknown] metoprolol succinate 25 mg tablet,extended release 24 hr 25 mg PO DAILY tablet 03/26/21 [History Last Taken Unknown] Allergy/AdvReac Type Severity Reaction Status Date / Time cyclobenzaprine HCl Allergy Hives Verified 07/17/21 14:47 [From Flexeril] venlafaxine [From Effexor] AdvReac Severe unknown Verified 07/17/21 14:47 Family History Father CVA (cerebral vascular accident) Heart disease Diabetes Mother Thyroid disorder Surgical History H/O arthroscopic knee surgery History of delivery History of cholecystectomy Social History Smoking Status: Current every day smoker tobacco type: cigarettes second hand exposure: Yes alcohol intake: never substance use type: does not use caffeine: Yes Type: carbonated beverages Number of servings: 1 and coffee Number of servings: 1 ROS ROS ED Constitutional Constitutional ED: Denies chills or fever(s) Eyes Eyes: Denies blurry vision or change in vision ENT ENT ED: Denies rhinorrhea or sore throat Cardiovascular Cardiovascular: Reports chest pain; Denies palpitations Respiratory/Chest Respiratory/Chest: Reports dyspnea; Denies cough Gastrointestinal Gastrointestinal: Denies nausea or vomiting Genitourinary Genitourinary ED: Denies dysuria or hematuria Musculoskeletal Musculoskeletal: Reports back pain; Denies neck pain Integumentary Denies abscess or rash Neurologic Neurologic: Denies headache(s) or weakness Allergic/Immunologic Allergic/Immunologic ED: Denies mouth swelling or urticaria EXAM Physical Exam Const Vital Signs: 07/17/21 14:45 07/17/21 15:10 07/17/21 15:24 Temperature 96.3 F L Temperature Source Temporal Pulse Rate 108 H 103 H Respiratory Rate 20 H 18 Respiratory Effort Short of Breath Respiratory Pattern Blood Pressure 130/115 H Blood Pressure Mean 120 Pulse Ox 89 93 Oxygen Delivery Method Nasal Cannula Nasal Cannula Nasal Cannula Oxygen Flow Rate (L/min) 5 3 5 07/17/21 15:27 07/17/21 15:53 07/17/21 15:55 Temperature 97.9 F Temperature Source Temporal Pulse Rate 98 100 Respiratory Rate 24 H 23 H Respiratory Effort Respiratory Pattern Tachypnea Blood Pressure 127/66 H Blood Pressure Mean 86 Pulse Ox 84 93 Oxygen Delivery Method Nasal Cannula Nasal Cannula Oxygen Flow Rate (L/min) 5 5 07/17/21 16:00 07/17/21 17:00 Temperature 98.8 F 98.7 F Temperature Source Temporal Temporal Pulse Rate 87 100 Respiratory Rate 18 21 H Respiratory Effort Respiratory Pattern Blood Pressure 102/67 134/76 H Blood Pressure Mean 78 95 Pulse Ox 93 95 Oxygen Delivery Method Nasal Cannula Nasal Cannula Oxygen Flow Rate (L/min) 5 5 Positive well nourished, well developed and obese General Appearance ED: well developed Nutritional Appearance: obese HEENT Reports moist mucous membranes Neck supple and no JVD Resp normal respiratory effort Auscultation: diminished lung sounds diffuse Cardio regular rate and regular rhythm GI non-tender Auscultation: normoactive bowel sounds Palpation: soft Neuro oriented x3, CN's II-XII intact bilaterally and no sensory deficits noted Sensorium / Orientation: alert Motor Exam: strength 5/5 throughout Psych mental status grossly normal MDM MDM MDM Narrative Medical decision making narrative: Patient was given a DuoNeb aerosol here. While here in the emergency department, patient's oxygen saturations dropped into the 80s on 5 L nasal cannula. These would return back into the 90s. EKG was obtained. On my interpretation, it showed a normal sinus rhythm with a rate of 90. [place] interval, QRS interval, and QTc intervals were all normal. [place] was normal. There are no acute ST or T wave changes. This was unchanged compared to previous EKG dated 07/14/2021. CBC and comprehensive metabolic profile were essentially within normal limits. Glucose was elevated at 291 but anion gap was normal. BNP was normal at 2.6. High-sensitivity troponin was normal at 26.9. Portable 1 view chest x-ray was obtained. On my interpretation, lung fish are clear. There is normal cardiac silhouette. Bony thorax is normal. There is no acute process noted. Radiologist also interpreted the x-ray and agrees. Patient's oxygen saturation with ambulation dropped into the 80s but then came back up into the 90s while she was still ambulating. Case was discussed with the hospitalist. He will admit the patient to his service. He recommended obtaining a COVID-19 PCR test. This was ordered. Patient understood and was agreeable with the plan. All questions were answered. Lab Data Attestation: I reviewed the patient's lab results. Labs: Laboratory Results - last 24 hr 07/17/21 07/17/21 07/17/21 15:05 15:05 15:05 WBC 11.8 H RBC 5.61 H Hgb 14.9 Hct 50.2 H MCV 89.5 MCH 26.6 L MCHC 29.7 L RDW Std Deviation 52.6 H RDW Coeff of Darrion 15.9 H Plt Count 326 MPV 10.1 Immature Gran % (Auto) 0.400 Neut % (Auto) 70.4 H Lymph % (Auto) 22.1 [place] % (Auto) 4.9 Eos % (Auto) 1.4 Baso % (Auto) 0.8 Absolute Neuts (auto) 8.3 H Absolute Lymphs (auto) 2.62 Nucleated RBC % 0 Sodium 131 L Potassium 3.9 Chloride 90 L Carbon Dioxide 38.0 H Anion Gap 3 L BUN 15 Creatinine 0.83 Estim Creat Clear Calc 77.83 Est GFR (MDRD) Af Amer 97 Est GFR (MDRD) Non-Af 80 BUN/Creatinine Ratio 18.2 Glucose 291 H Calcium 9.3 Total Bilirubin 0.40 AST 48 H ALT 34 Alkaline Phosphatase 92 Troponin I High Sens 26.9 B-Natriuretic Peptide 2.6 Total Protein 8.1 Albumin 3.4 Globulin 4.7 H Albumin/Globulin Ratio 0.7 L Radiography Chest X-Ray - ED: 1 View, Read by ED Physician, Read by Radiologist and Normal Diagnostic Testing: Radiology Impression Chest X-Ray 07/17/21 15:30 IMPRESSION: Normal x-ray examination of the chest. Electronically Signed: Dylan Gan MD at 15:43 EDT , Service support , EKG Initial EKG: Attestation: I personally reviewed and interpreted this EKG as follows: Interpretation: Sinus Rhythm (90) and No Acute Injury Pattern Prior EKG tracings: available for review Prior: Unchanged (07/14/2021) Discharge Plan Triage Chief Complaint: Shortness of Breath ED Provider: Faraz Flores Dx/Rx/DC Orders Prescriptions: No Action loratadine 10 mg tablet 10 mg PO DAILY PRN (Reason: Allergies) RF: 0 insulin lispro 100 unit/mL insulin pen 26 unit subcut TIDAC RF: 0 ipratropium-albuterol 0.5 mg-3 mg(2.5 mg base)/3 mL solution for nebulization 3 ml inhalation Q4H PRNRF: 0 lisinopril 10 mg tablet 10 mg PO DAILY RF: 0 metformin 500 mg tablet extended release 24 hr 2,000 mg PO DAILY RF: 0 fluoxetine 20 mg capsule 20 mg PO DAILY RF: 0 metoprolol succinate 25 mg tablet extended release 24 hr 25 mg PO DAILY RF: 0 famotidine 20 mg tablet 20 mg PO QHS PRN (Reason: STOMACH) RF: 0 insulin detemir U-100 100 unit/mL (3 mL) insulin pen 100 unit SC BID RF: 0 hydrochlorothiazide 25 MG tablet 25 mg PO DAILY RF: 0 usjfxwwo-ktck-QY-calcium-mins 1 EACH tablet 1 ea PO DAILY RF: 0 gabapentin 300 MG capsule 900 mg PO TID RF: 0 dulaglutide 1.5 MG/0.5 ML pen injector 0.5 ml SQ QWEEK MDD 0.5ml RF: 0 furosemide 40 MG tablet 40 mg PO BID RF: 0 omeprazole 40 MG capsule,delayed release(DR/EC) 40 mg PO DAILY RF: 0 atorvastatin 40 MG tablet 40 mg PO QHS RF: 0 aspirin 81 MG tablet 81 mg PO DAILY@0800 RF: 0 diltiazem HCl 120 MG capsule 120 mg PO DAILY RF: 0 apixaban 5 MG tablet 5 mg PO BID RF: 0 buspirone 5 MG tablet 10 mg PO BID Qty: 60 RF: 0 albuterol sulfate 2.5 MG/3 ML solution for nebulization 2.5 mg inhalation Q2H PRN PRN (Reason: SOB/Wheezing) Qty: 1 RF: 0 fluticasone propion-salmeterol 1 EACH blister with device 1 ea IH BID Qty: 1 RF: 0 albuterol sulfate 1 PUFF inhaler 1 puff inhalation Q4H PRN PRN (Reason: Dyspnea, wheezing) Qty: 1 RF: 0 Oxygen, Home [Home Oxygen] 2 lpm NASAL DAILY 30 Days Qty: 30 RF: 0 Primary Care Provider: Tino Oreilly
--- NOTE | 2021-07-17 17:22 | NURSING ---
MED SURG OBS JOPPERI HYPOXIA
--- NOTE | 2021-07-17 17:40 | HP.PCM.HOS_ITS ---
HPI - General General Date of Admission: 07/17/21 Date of Service: 07/17/21 Chief Complaint: shortness of breath HPI Narrative MACARIO OVERTON, is a 46 F who presents with shortness of breath. She has been short of breath over the past week. States that it is intermittent and not consistent. Patient can be short of breath with exertion, such as going to the bathroom but other times not short of breath. She can be short of breath at r est and other times not short of breath. According to her there is no consistency in regards to the symptoms. She presented to the emergency room on the and underwent a CT angiogram of the chest that did not show any PE but did show some groundglass opacity. Patient had a rapid Covid test here today which was negative. She denies any sick contacts though she is unvaccinated for COVID-19. [facility] Medical History (Updated 07/17/21 @ 17:[address] Faraz Lantigua, DO) Abscess Abscess of vulva Acute encephalopathy KERRY (acute kidney injury) Altered mental status Anxiety CAP (community acquired pneumonia) Cellulitis Cellulitis of leg Chest pain Chronic respiratory failure with hypoxia Dyspnea on exertion Essential hypertension Hidradenitis History of left heart catheterization (LHC) (~01/05/19) History of MRSA infection Hyperglycemia Hyperglycemia due to type 2 diabetes mellitus Hyperlipidemia Morbid obesity Necrotizing soft tissue infection Non-healing open wound of left groin NSTEMI (non-ST elevated myocardial infarction) 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 Old myocardial infarction Open wound of vulva with complication Opiate overdose Pulmonary embolism Respiratory failure with hypoxia Restrictive lung disease secondary to obesity Sepsis Soft tissue abscess of inguinal region Tobacco abuse Type 2 diabetes mellitus Home Medications hydrochlorothiazide 12.5 mg PO DAILY 02/02/17 [History Last Taken 12/14/18] jtmmftuy-wcer-RU-calcium-mins 1 ea PO DAILY 03/26/17 [History Last Taken 12/01 03/19] gabapentin 900 mg PO BID 05/29/17 [History Last Taken 12/14/18 400 mg] dulaglutide 0.5 ml SQ QWEEK MDD 0.5ml 06/08/18 [History Last Taken 12/08/18] omeprazole 40 mg PO DAILY 12/15/18 [History Last Taken 12/14/18] loratadine 10 mg tablet 10 mg PO DAILY PRN tab 03/01/20 [History Last Taken Unknown] apixaban 5 mg PO BID 08/20/20 [History Last Taken Unknown] aspirin 81 mg PO DAILY@0800 08/20/20 [History Last Taken Unknown] atorvastatin 40 mg PO QHS 08/20/20 [History Last Taken Unknown] diltiazem HCl 120 mg PO DAILY 08/20/20 [History Last Taken Unknown] Oxygen, Home [Home Oxygen] 2 lpm NASAL DAILY 30 Days #30 device 08/24/20 [Rx Last Taken Unknown] albuterol sulfate 1 puff INHALATION Q4H PRN PRN #1 inhaler 08/24/20 [Rx Last Taken Unknown] albuterol sulfate 2.5 mg INHALATION Q2H PRN PRN #1 box 08/24/20 [Rx Last Taken Unknown] buspirone 10 mg PO BID #60 tab 08/24/20 [Rx Last Taken Unknown] fluticasone propion-salmeterol 1 ea IH BID #1 blst.w.dev 08/24/20 [Rx Last Taken Unknown] famotidine 20 mg tablet 20 mg PO QHS PRN tablet 03/26/21 [History Last Taken Unknown] fluoxetine 20 mg capsule 20 mg PO DAILY cap 03/26/21 [History Last Taken Unknown] insulin detemir U-100 100 unit/mL (3 mL) subcutaneous pen 100 unit SC BID ml 03/26/21 [History Last Taken Unknown] insulin lispro 100 unit/mL subcutaneous pen 32 unit SUBCUT TIDAC ml 03/26/21 [History Last Taken Unknown] ipratropium 0.5 mg-albuterol 3 mg (2.5 mg base)/3 mL nebulization soln 3 ml INHALATION Q4H PRN ml 03/26/21 [History Last Taken Unknown] lisinopril 10 mg tablet 10 mg PO DAILY tablet 03/26/21 [History Last Taken U nknown] metformin 500 mg tablet,extended release 24 hr 2,000 mg PO DAILY tablet 03/26/21 [History Last Taken Unknown] metoprolol succinate 25 mg tablet,extended release 24 hr 25 mg PO DAILY tablet 03/26/21 [History Last Taken Unknown] furosemide 40 mg PO BID 07/17/21 [History Last Taken Unknown] varenicline 1 mg PO BID 07/17/21 [History Last Taken Unknown] varenicline [Chantix Starting Month Box] 0.5 - 1 tab PO BID 07/17/21 [History Last Taken Unknown] Allergy/AdvReac Type Severity Reaction Status Date / Time cyclobenzaprine HCl Allergy Hives Verified 07/17/21 14:47 [From Flexeril] venlafaxine [From Effexor] AdvReac Severe unknown Verified 07/17/21 14:47 Family History Father CVA (cerebral vascular accident) Heart disease Diabetes Mother Thyroid disorder Surgical History H/O arthroscopic knee surgery History of delivery History of cholecystectomy Social History Smoking Status: Current every day smoker tobacco type: cigarettes second hand exposure: Yes alcohol intake: never substance use type: does not use caffeine: Yes Type: carbonated beverages Number of servings: 1 and coffee Number of servings: 1 ROS ROS Narrative Denies fever chills. Is coughing with productive sputum. No chest pain. Does have lower extremity edema but appears to be improved from baseline. Has lost weight recently. Denies an ostomy. Denies dysgeusia. All review of systems were negative except as mentioned above in the history of present illness and the other review of systems. Vital Signs Vital Signs Vital Signs: 07/17/21 14:45 07/17/21 15:10 07/17/21 15:24 Temperature 35.7 C L Temperature Source Temporal Pulse Rate 108 H 103 H Respiratory Rate 20 H 18 Respiratory Effort Short of Breath Respiratory Pattern Blood Pressure 130/115 H Blood Pressure Mean 120 Pulse Ox 89 93 Oxygen Delivery Method Nasal Cannula Nasal Cannula Nasal Cannula Oxygen Flow Rate (L/min) 5 3 5 07/17/21 15:27 07/17/21 15:53 07/17/21 15:55 Temperature 36.6 C Temperature Source Temporal Pulse Rate 98 100 Respiratory Rate 24 H 23 H Respiratory Effort Respiratory Pattern Tachypnea Blood Pressure 127/66 H Blood Pressure Mean 86 Pulse Ox 84 93 Oxygen Delivery Method Nasal Cannula Nasal Cannula Oxygen Flow Rate (L/min) 5 5 07/17/21 16:00 07/17/21 17:00 07/17/21 17:25 Temperature 37.1 C 37.1 C 37.1 C Temperature Source Temporal Temporal Temporal Pulse Rate 87 100 95 Respiratory Rate 18 21 H 22 H Respiratory Effort Respiratory Pattern Blood Pressure 102/67 134/76 H 134/76 H Blood Pressure Mean 78 95 95 Pulse Ox 93 95 93 Oxygen Delivery Method Nasal Cannula Nasal Cannula Nasal Cannula Oxygen Flow Rate (L/min) 5 5 5 Weight Weight: 156.036 kg Body Mass Index (BMI) 57.2 Physical Exam Const alert Constitutional Narrative: Up at the side of the bed. 5 L nasal cannula. No respiratory distress. No conversational dyspnea. HEENT normocephalic Neck no lymphadenopathy Neck Narrative: Redundant neck tissue Resp normal respiratory effort Resp Narrative: Diminished breath sounds throughout. No wheezes. Auscultation: Negative for wheezes Cardio regular rate and regular rhythm Cardio Narrative: Distant heart sound GI normal to inspection, nondistended, normoactive bowel sounds, soft to palpation, non-tender and non-distended GI Narrative: Obese Extremity Extremity Narrative: Nonpitting lower extremity edema. No cyanosis or clubbing Skin Skin Narrative: Subtle venous stasis changes to the lower extremities Neuro moves all extremities Sensorium / Orientation: awake and alert Psych affect normal Results Lab / Micro Data Attestation: I reviewed the patient's lab results. Result Diagrams: 07/17/21 15:05 07/17/21 15:05 Labs: Laboratory Results - last 24 hr 07/17/21 15:05: WBC 11.8 H, RBC 5.61 H, Hgb 14.9, Hct 50.2 H, MCV 89.5, MCH 26.6 L, MCHC 29.7 L, RDW Std Deviation 52.6 H, RDW Coeff of Darrion 15.9 H, Plt Count 326, MPV 10.1, Immature Gran % (Auto) 0.400, Neut % (Auto) 70.4 H, Lymph % (Auto) 22.1, [place] % (Auto) 4.9, Eos % (Auto) 1.4, Baso % (Auto) 0.8, Absolute Neuts (auto) 8.3 H, Absolute Lymphs (auto) 2.62, Nucleated RBC % 0 07/17/21 15:05: Sodium 131 L, Potassium 3.9, Chloride 90 L, Carbon Dioxide 38.0 H, Anion Gap 3 L, BUN 15, Creatinine 0.83, Estim Creat Clear Calc 77.83, Est GFR (MDRD) Af Amer 97, Est GFR (MDRD) Non-Af 80, BUN/Creatinine Ratio 18.2, Glucose 291 H, Calcium 9.3, Total Bilirubin 0.40, AST 48 H, ALT 34, Alkaline Phosphatase 92, Troponin I High Sens 26.9, Total Protein 8.1, Albumin 3.4, Globulin 4.7 H, Albumin/Globulin Ratio 0.7 L 07/17/21 15:05: B-Natriuretic Peptide 2.6 Micro: Microbiology 07/17/21 15:23 Mucosa - Nose SARS-CoV-2 Antigen (Rapid) - Final EKG Initial EKG: Attestation: I personally reviewed and interpreted this EKG as follows: Prior EKG tracings: available for review EKG Rhythm Intrepretation: Sinus Rhythm Radiology Impression Chest X-Ray 07/17/21 15:30 IMPRESSION: Normal x-ray examination of the chest. Electronically Signed: Dylan Gan MD at 15:43 EDT , Service support , Assessment & Plan Assessment/Plan (1) Acute and chronic respiratory failure with hypoxia: PLAN: 1. Acute on chronic hypoxic respiratory failure Patient has baseline 2 L nasal cannula is now on 5 L. Patient stated that she was 60% at home. Right now she is around 90%. Etiology uncertain at this time. CAT scan that she had done on the shows some groundglass opacity. This is nonspecific but possibilities could be infectious versus pulmonary vascular congestion. BNP was normal. Patient clinically does not appear to have COVID-19 but will check COVID-19 PCR to verify particular since she is unvaccinated. Could be a component of a viral bronchitis so we will check a respiratory panel as well as a COVID-19. We will treat her with IV furosemide and prednisone. Patient does have confirmed COVID-19 and will change prednisone over to dexamethasone and start her on remdesivir. Complicated by the patient's underlying obstructive sleep apnea and obesity hypoventilation Patient does not have obstructive pulmonary disease 2. Diabetes mellitus type 2 Insulin-dependent Continue with her basal as well as prandial insulins Hold Metformin given recent contrast that she received on the 3. Morbid obesity Complicates overall care and recovery Patient will benefit from bariatric evaluation 4. History of VTE Patient already anticoagulated on apixaban 5. Prophylaxis: Not indicated while patient is on anticoagulation 6. Health maintenance: Patient is not vaccinated for COVID-19. She told me that she want to do more research. I strongly advised patient to get vaccinated given her underlying lung disease and oxygen dependence. I told her that she is at risk for serious decompensation with her lung disease if she were to potentially contract COVID-19, assuming she does not have COVID-19 at this time. She was agreeable to getting the vaccine. I told her we would hold off on administration till we can confirm that she does not have COVID-19. I told her that if we can give her the vaccine it would be a [employer] vaccine. Charges/Coding Visit Charges Inpatient E&M: 15498 Init Hosp L3
[2021-07-17] MEDS: Furosemide 40 MG/4 ML Vial IV (18:41)
[2021-07-17] MEDS: predniSONE 20 MG Tablet 40 MG PO (18:41)
[2021-07-17 18:47] LABS: Probe Check PASS; Specimen Processing Control PASS
[2021-07-17] MEDS: APIXABAN 5 MG TABLET PO (22:11)
[2021-07-17] MEDS: Gabapentin 300 MG Capsule 900 MG PO (22:12)
[2021-07-17] MEDS: busPIRone 5 MG Tablet 10 MG PO (22:12)
[2021-07-17] MEDS: Atorvastatin Calcium 40 MG Tablet PO (22:14)
[2021-07-17] MEDS: 0.9% Saline Lock 10 ML Syringe IV (22:16)
[2021-07-18] VITALS (7 sets, daily range): BP systolic 112–142; BP diastolic 56–78; PULSE 88–102; RESP 16–18; TEMP 36.4–36.9; O2SAT 86–94
[2021-07-18] MEDS: Acetaminophen 325 MG Tablet 650 MG PO ×2 (00:13→08:14)
[2021-07-18 07:19] LABS: Absolute Lymphocyte Count 1.53 X10^3/uL (0.83-4.51); Absolute Neutrophil Count 8.9 X10^3/uL (2.0-7.7); Basophil# 0.07 X10^3/uL; Basophil% 0.6 % (0-1); Eosinophil# 0.02 X10^3/uL; Eosinophils% 0.2 % (0-5); Hematocrit 48.1 % (37-47); Hemoglobin 14.5 g/dL (12.0-15.0); Lymphocyte # 1.53 X10^3/ul (0.83-4.51); Lymphocyte % 13.9 % (19-41); Mean Corp Hgb Conc 30.1 g/dL (32-36); Mean Corpuscular Hgb 27.1 pg (27.0-32.0); Mean Corpuscular Volume 89.7 fL (81-99); Monocyte# 0.42 X10^3/uL; Monocyte% 3.8 % (0-10); NRBC Flagged by Analyzer 0 % (0-5); Neutrophil # 8.94 X10^3/uL (2.7-7.7); Platelet Count 302 K/mm3 (150-450); RBC Distribution Width CV 15.9 % (11.6-14.6); RBC Distribution Width SD 51.9 fl (35.1-43.9); Red Blood Count 5.36 M/mm3 (4.2-5.4)
[2021-07-18 07:41] LABS: Bedside Glucose 354 mg/dL (70-110)
[2021-07-18 08:09] LABS: ALB/GLOB Ratio 0.8 RATIO (0.9-2.4); AST(SGOT) 18 U/L (15-37); Alanine Aminotransfer ALT/SGPT 28 U/L (13-56); Albumin, Serum 3.3 g/dL (3.2-5.0); Alkaline Phosphatase 81 U/L (45-117); Anion Gap 8 (5-15); BUN 18 mg/dL (7-18); BUN/Creat Ratio 23.9 RATIO (10-20); Calcium,Total 8.9 mg/dL (8.5-10.1); Chloride 90 mmol/L (98-107); Creatinine, Serum 0.75 mg/dL (0.55-1.02); EST Glomerular Filtration Rate 89 mL/min (>60); Est Glom Filt Rate - Afr Amer 108 mL/min (>60); Estimated Creatinine Clearance 86.13 ml/min; Globulin 4.1 g/dL (2.2-4.2); Glucose 355 mg/dL (74-106); Potassium 3.6 mmol/L (3.5-5.1); Protein, Total 7.4 g/dL (6.4-8.2); Sodium Level 133 mmol/L (136-145)
[2021-07-18 08:15] LABS: Bedside Glucose 366 mg/dL (70-110)
[2021-07-18] MEDS: predniSONE 20 MG Tablet 40 MG PO (08:15)
[2021-07-18] MEDS: Aspirin E.C. 81 MG Tablet PO (08:15)
[2021-07-18] MEDS: Insulin Lispro 100 UNIT/ML INSULN.PEN 32 UNIT SC ×2 (08:15→11:21)
[2021-07-18] MEDS: Multivitamins,Ther W-Minerals Tablet 1 TABLET PO (08:15)
[2021-07-18] MEDS: Furosemide 40 MG/4 ML Vial IV (09:43)
[2021-07-18] MEDS: Gabapentin 300 MG Capsule 900 MG PO (09:44)
[2021-07-18] MEDS: dilTIAZem CD 120 MG Capsule PO (09:45)
[2021-07-18] MEDS: APIXABAN 5 MG TABLET PO (09:45)
[2021-07-18] MEDS: 0.9% Saline Lock 10 ML Syringe IV (09:45)
[2021-07-18] MEDS: Metoprolol(XL)Succ 25 MG Tablet PO (09:45)
[2021-07-18] MEDS: busPIRone 5 MG Tablet 10 MG PO (09:45)
[2021-07-18] MEDS: Lisinopril 10 MG Tablet PO (09:45)
[2021-07-18] MEDS: Pantoprazole Sodium 40 MG Tablet PO (09:45)
[2021-07-18 11:30] LABS: Bedside Glucose 471 mg/dL (70-110)
--- NOTE | 2021-07-18 11:34 | PCM.DC ---
Discharge Instructions Diet Discharge Diet: Low fat / Low cholesterol, 1800 Calorie Control Diet, 2000 mg Sodium Diet, Carb Control Diet and - (1500 cc fluid restriction) Activity Discharge Activity: Return to Normal Activity Dressing / Incision Call your doctor if you observe: Fever of 101 or Higher, Shortness of breath, Dizziness and Chest pain Follow Up Care Test Results: Test results from this visit will be discussed in further detail at your follow-up appointment, if applicable. Discharge Plan Admission Admit Date/Time: 07/17/21 17:39 Primary Reason for Your Visit: Respiratory failure Attending Provider: Faraz Lantigua Primary Care Provider: Tino Oreilly Instructions Additional Instructions / Restrictions: Weigh yourself daily. If you gain more than 2 pounds in 24 hours or 5 pounds in 1 week, you will need to take an extra dose of Lasix and notify your primary care office. Discharge Orders/Prescriptions Prescriptions: New prednisone 20 mg Tablet 40 mg PO BREAKFAST Qty: 6 RF: 0 nicotine (polacrilex) 2 mg gum 2 mg buccal Q2H PRN (Reason: nicotine cravings) Qty: 40 RF: 0 Continued loratadine 10 mg tablet 10 mg PO DAILY PRN (Reason: Allergies) RF: 0 insulin lispro 100 unit/mL insulin pen 32 unit subcut TIDAC RF: 0 ipratropium-albuterol 0.5 mg-3 mg(2.5 mg base)/3 mL solution for nebulization 3 ml inhalation Q4H PRN (Reason: Shortness Of Breath Or Wheezing) RF: 0 lisinopril 10 mg tablet 10 mg PO DAILY RF: 0 metformin 500 mg tablet extended release 24 hr 2,000 mg PO DAILY RF: 0 fluoxetine 20 mg capsule 20 mg PO DAILY RF: 0 metoprolol succinate 25 mg tablet extended release 24 hr 25 mg PO DAILY RF: 0 famotidine 20 mg tablet 20 mg PO QHS PRN (Reason: STOMACH) RF: 0 insulin detemir U-100 100 unit/mL (3 mL) insulin pen 100 unit SC BID RF: 0 hydrochlorothiazide 25 MG tablet 12.5 mg PO DAILY RF: 0 benatqmx-nqal-XK-calcium-mins 1 EACH tablet 1 ea PO DAILY RF: 0 gabapentin 300 MG capsule 900 mg PO BID RF: 0 dulaglutide 1.5 MG/0.5 ML pen injector 0.5 ml SQ PEREZ MDD 0.5ml RF: 0 omeprazole 40 MG capsule,delayed release(DR/EC) 40 mg PO DAILY RF: 0 atorvastatin 40 MG tablet 40 mg PO QHS RF: 0 aspirin 81 MG tablet 81 mg PO DAILY@0800 RF: 0 diltiazem HCl 120 MG capsule 120 mg PO DAILY RF: 0 apixaban 5 MG tablet 5 mg PO BID RF: 0 albuterol sulfate 2.5 MG/3 ML solution for nebulization 2.5 mg inhalation Q2H PRN PRN (Reason: SOB/Wheezing) Qty: 1 RF: 0 albuterol sulfate 1 PUFF inhaler 1 puff inhalation Q4H PRN PRN (Reason: Dyspnea, wheezing) Qty: 1 RF: 0 Oxygen, Home [Home Oxygen] 2 lpm NASAL DAILY 30 Days Qty: 30 RF: 0 furosemide 40 mg tablet 40 mg PO BID RF: 0 Referrals / Follow Up: Tino Oreilly MD [Primary Care Provider] - In 1 Week Nelly Hunter NP, RETAIL SUPERVISOR-C [Nurse Practitioner] - In 1 Week Disposition Disposition (needs filled in before D/C Order can be placed): Home, Self Care
--- NOTE | 2021-07-18 11:50 | DS.PCM_ITS ---
Documented by User: Miranda Collins NP, OBIEE [employer]CHITECT-C 07/18/21 12:05 Providers Date of Admission: 07/17/21 Date of Discharge: 07/18/21 Primary Care Physician: Dr. Tino Oreilly MD Reason For Visit: HYPOXIA Diagnosis Discharge Diagnosis (1) Acute and chronic respiratory failure with hypoxia: Status: Chronic Code(s): J96.21 - Acute and chronic respiratory failure with hypoxia Medications at Discharge Home Medications hydrochlorothiazide 12.5 mg PO DAILY 02/02/17 hleewgli-wxpz-AP-calcium-mins 1 ea PO DAILY 03/26/17 gabapentin 900 mg PO BID 05/29/17 dulaglutide 0.5 ml SQ PEREZ MDD 0.5ml 06/08/18 omeprazole 40 mg PO DAILY 12/15/18 loratadine 10 mg tablet 10 mg PO DAILY PRN tab 03/01/20 apixaban 5 mg PO BID 08/20/20 aspirin 81 mg PO DAILY@0800 08/20/20 atorvastatin 40 mg PO QHS 08/20/20 diltiazem HCl 120 mg PO DAILY 08/20/20 Oxygen, Home [Home Oxygen] 2 lpm NASAL DAILY 30 Days #30 device 08/24/20 albuterol sulfate 1 puff INHALATION Q4H PRN PRN #1 inhaler 08/24/20 albuterol sulfate 2.5 mg INHALATION Q2H PRN PRN #1 box 08/24/20 famotidine 20 mg tablet 20 mg PO QHS PRN tablet 03/26/21 fluoxetine 20 mg capsule 20 mg PO DAILY cap 03/26/21 insulin detemir U-100 100 unit/mL (3 mL) subcutaneous pen 100 unit SC BID ml 03/26/21 insulin lispro 100 unit/mL subcutaneous pen 32 unit SUBCUT TIDAC ml 03/26/21 ipratropium 0.5 mg-albuterol 3 mg (2.5 mg base)/3 mL nebulization soln 3 ml INHALATION Q4H PRN ml 03/26/21 lisinopril 10 mg tablet 10 mg PO DAILY tablet 03/26/21 metformin 500 mg tablet,extended release 24 hr 2,000 mg PO DAILY tablet 03/26/21 metoprolol succinate 25 mg tablet,extended release 24 hr 25 mg PO DAILY tablet 03/26/21 furosemide 40 mg PO BID 07/17/21 nicotine (polacrilex) 2 mg BUCCAL Q2H PRN #40 ea 07/18/21 prednisone 40 mg PO BREAKFAST #6 tab 07/18/21 Hospital Course Operations None Procedures None Summary of Care Provided Minutes Spent on Discharge: 35 Hospital Course: Patient is a 46-year-old female admitted 07/17/2021 due to shortness of breath. 1. Acute on chronic hypoxic respiratory failure-multifactorial secondary to suspected mild viral bronchitis and acute heart failure with preserved ejection fraction, complicated by underlying LOGAN and morbid obesity. Patient wears 2 L nasal cannula continuously at baseline. Repeat oxygen testing completed prior to discharge and patient will require 4 L nasal cannula with exertion and co ntinue 2 L nasal cannula at rest. She is ambulatory in the home. 2. Mild viral bronchitis-continue prednisone burst at discharge. Continue home inhaler/aerosol regimen. 3. Acute heart failure with preserved ejection fraction-BNP normal however chest imaging consistent with vascular congestion. Symptoms improved with IV Lasix. Patient is on Lasix 40 mg twice daily at baseline. Echocardiogram January 2020 demonstrated an EF of 55%. Patient states she typically drinks copious amount of fluids despite being on Lasix. Instructed on 1500 cc fluid restriction, sodium restriction and daily weights. Continue home Lasix regimen at discharge. 4. LOGAN-on BiPAP nightly. Patient states it has been a long time since she is undergone titration. Follow-up with pulmonary medicine to discuss repeat titration study. 5. Type 2 diabetes mellitus, poorly controlled-previous hemoglobin A1c August 2020 11.2%. Recommend repeat by PCP. 6. History of PE-on Eliquis. 7. Hypertension-stable, on Cardizem, HCTZ, Lasix, lisinopril, metoprolol. 8. Hyperlipidemia-continue statin. 9. Depression-on fluoxetine. 10. GERD-continue PPI. 11. Morbid obesity-BMI 57. Encouraged diet and lifestyle modifications. 12. Tobacco dependence- encouraged cessation. Requesting nicotine gum at discharge. Patient seen and examined prior to discharge. Physical assessment as noted below. Patient is stable for discharge with follow up recommendations as noted above. This patient was seen by FADUMO Bangura under the supervision of Dr. Lantigua. Physical Exam Const alert, oriented x3 and no apparent distress Orientation / Consciousness: awake, oriented to person, oriented to place and oriented to time Nutritional Appearance: obese morbidly obese HEENT normocephalic and moist oral mucous membranes Eyes PERRL, EOMs intact bilaterally and conjunctivae normal Neck no lymphadenopathy Resp clear to auscultation bilaterally Auscultation: diminished lung sounds Cardio regular rate, regular rhythm and no murmurs Peripheral Pulses: pulses 2+ throughout GI normal to inspection, nondistended, normoactive bowel sounds, non-tender and non-distended Extremity normal to inspection General Extremity: edema bilateral lower extremity Details: mild Skin no rashes or lesions noted Lesions: no lesions Rashes: no rashes Trauma: no lacerations or abrasions Neuro CN's II-XII intact bilaterally, no focal motor deficits, no sensory deficits noted and deep tendon reflexes 2+ bilaterally Psych mental status grossly normal and affect normal Weight / BMI Weight Weight: 343 lb 7.683 oz Body Mass Index (BMI) 57.4 ABG / Lab / Microbiology Data Result Diagrams: 07/18/21 06:30 07/18/21 06:30 Laboratory: Laboratory Results - last 24 hr 07/17/21 15:05: WBC 11.8 H, RBC 5.61 H, Hgb 14.9, Hct 50.2 H, MCV 89.5, MCH 26.6 L, MCHC 29.7 L, RDW Std Deviation 52.6 H, RDW Coeff of Darrion 15.9 H, Plt Count 326, MPV 10.1, Immature Gran % (Auto) 0.400, Neut % (Auto) 70.4 H, Lymph % (Auto) 22.1, [place] % (Auto) 4.9, Eos % (Auto) 1.4, Baso % (Auto) 0.8, Absolute Neuts (auto) 8.3 H, Absolute Lymphs (auto) 2.62, Nucleated RBC % 0 07/17/21 15:05: Sodium 131 L, Potassium 3.9, Chloride 90 L, Carbon Dioxide 38.0 H, Anion Gap 3 L, BUN 15, Creatinine 0.83, Estim Creat Clear Calc 77.83, Est GFR (MDRD) Af Amer 97, Est GFR (MDRD) Non-Af 80, BUN/Creatinine Ratio 18.2, Glucose 291 H, Calcium 9.3, Total Bilirubin 0.40, AST 48 H, ALT 34, Alkaline Phosphatase 92, Troponin I High Sens 26.9, Total Protein 8.1, Albumin 3.4, Globulin 4.7 H, Albumin/Globulin Ratio 0.7 L 07/17/21 15:05: B-Natriuretic Peptide 2.6 07/17/21 17:30: COVID-19 (SURESH) Negative 07/17/21 22:20: POC Glucose 354 H 07/18/21 06:30: WBC 11.0, RBC 5.36, Hgb 14.5, Hct 48.1 H, MCV 89.7, MCH 27.1, MCHC 30.1 L, RDW Std Deviation 51.9 H, RDW Coeff of Darrion 15.9 H, Plt Count 302, MPV 10.0, Immature Gran % (Auto) 0.500, Neut % (Auto) 81.0 H, Lymph % (Auto) 13.9 L, [place] % (Auto) 3.8, Eos % (Auto) 0.2, Baso % (Auto) 0.6, Absolute Neuts (auto) 8.9 H, Absolute Lymphs (auto) 1.53, Nucleated RBC % 0 07/18/21 06:30: Sodium 133 L, Potassium 3.6, Chloride 90 L, Carbon Dioxide 35.0 H, Anion Gap 8, BUN 18, Creatinine 0.75, Estim Creat Clear Calc 86.13, Est GFR (MDRD) Af Amer 108, Est GFR (MDRD) Non-Af 89, BUN/Creatinine Ratio 23.9 H, Glucose 355 H, Calcium 8.9, Total Bilirubin 0.40, AST 18, ALT 28, Alkaline Phosphatase 81, Total Protein 7.4, Albumin 3.3, Globulin 4.1, Albumin/Globulin Ratio 0.8 L 07/18/21 08:07: POC Glucose 366 H 07/18/21 11:19: POC Glucose 471 H* Microbiology: Microbiology 07/17/21 15:23 Mucosa - Nose SARS-CoV-2 Antigen (Rapid) - Final Radiography Diagnostic Testing: Radiology Impression Chest X-Ray 07/17/21 15:30 IMPRESSION: Normal x-ray examination of the chest. Electronically Signed: Dylan Gan MD at 15:43 EDT , Service support , D/C Instructions Discharge Diet: Low fat / Low cholesterol, 1800 Calorie Control Diet, 2000 mg Sodium Diet, Carb Control Diet and - (1500 cc fluid restriction) Call your doctor if you observe: Fever of 101 or Higher, Shortness of breath, Dizziness and Chest pain Meaningful Use Info Meaningful Use Diagnoses (Choose all that apply): None applicable Discharge Plan Admission Admit Date/Time: 07/17/21 17:39 Primary Reason for Your Visit: Respiratory failure Attending Provider: Faraz Lantigua Primary Care Provider: Tino Oreilly Instructions Additional Instructions / Restrictions: Weigh yourself daily. If you gain more than 2 pounds in 24 hours or 5 pounds in 1 week, you will need to take an extra dose of Lasix and notify your primary care office. Discharge Orders/Prescriptions Prescriptions: New prednisone 20 mg Tablet 40 mg PO BREAKFAST Qty: 6 RF: 0 nicotine (polacrilex) 2 mg gum 2 mg buccal Q2H PRN (Reason: nicotine cravings) Qty: 40 RF: 0 Continued loratadine 10 mg tablet 10 mg PO DAILY PRN (Reason: Allergies) RF: 0 insulin lispro 100 unit/mL insulin pen 32 unit subcut TIDAC RF: 0 ipratropium-albuterol 0.5 mg-3 mg(2.5 mg base)/3 mL solution for nebulization 3 ml inhalation Q4H PRN (Reason: Shortness Of Breath Or Wheezing) RF: 0 lisinopril 10 mg tablet 10 mg PO DAILY RF: 0 metformin 500 mg tablet extended release 24 hr 2,000 mg PO DAILY RF: 0 fluoxetine 20 mg capsule 20 mg PO DAILY RF: 0 metoprolol succinate 25 mg tablet extended release 24 hr 25 mg PO DAILY RF: 0 famotidine 20 mg tablet 20 mg PO QHS PRN (Reason: STOMACH) RF: 0 insulin detemir U-100 100 unit/mL (3 mL) insulin pen 100 unit SC BID RF: 0 hydrochlorothiazide 25 MG tablet 12.5 mg PO DAILY RF: 0 ghkkhyej-gsqa-GG-calcium-mins 1 EACH tablet 1 ea PO DAILY RF: 0 gabapentin 300 MG capsule 900 mg PO BID RF: 0 dulaglutide 1.5 MG/0.5 ML pen injector 0.5 ml SQ PEREZ MDD 0.5ml RF: 0 omeprazole 40 MG capsule,delayed release(DR/EC) 40 mg PO DAILY RF: 0 atorvastatin 40 MG tablet 40 mg PO QHS RF: 0 aspirin 81 MG tablet 81 mg PO DAILY@0800 RF: 0 diltiazem HCl 120 MG capsule 120 mg PO DAILY RF: 0 apixaban 5 MG tablet 5 mg PO BID RF: 0 albuterol sulfate 2.5 MG/3 ML solution for nebulization 2.5 mg inhalation Q2H PRN PRN (Reason: SOB/Wheezing) Qty: 1 RF: 0 albuterol sulfate 1 PUFF inhaler 1 puff inhalation Q4H PRN PRN (Reason: Dyspnea, wheezing) Qty: 1 RF: 0 Oxygen, Home [Home Oxygen] 2 lpm NASAL DAILY 30 Days Qty: 30 RF: 0 furosemide 40 mg tablet 40 mg PO BID RF: 0 Referrals / Follow Up: Tino Oreilly MD [Primary Care Provider] - In 1 Week Nelly Hunter NP, O[employer] ARCHITECT-C [Nurse Practitioner] - In 1 Week Disposition Disposition (needs filled in before D/C Order can be placed): Home, Self Care Documented by User: Dr. Faraz Lantigua DO 07/18/21 15:20 Providers Date of Admission: 07/17/21 Reason For Visit: HYPOXIA Medications at Discharge Home Medications hydrochlorothiazide 12.5 mg PO DAILY 02/02/17 hcuhvjlq-uirx-TD-calcium-mins 1 ea PO DAILY 03/26/17 gabapentin 900 mg PO BID 05/29/17 dulaglutide 0.5 ml SQ PEREZ MDD 0.5ml 06/08/18 omeprazole 40 mg PO DAILY 12/15/18 loratadine 10 mg tablet 10 mg PO DAILY PRN tab 03/01/20 apixaban 5 mg PO BID 08/20/20 aspirin 81 mg PO DAILY@0800 08/20/20 atorvastatin 40 mg PO QHS 08/20/20 diltiazem HCl 120 mg PO DAILY 08/20/20 Oxygen, Home [Home Oxygen] 2 lpm NASAL DAILY 30 Days #30 device 08/24/20 albuterol sulfate 1 puff INHALATION Q4H PRN PRN #1 inhaler 08/24/20 albuterol sulfate 2.5 mg INHALATION Q2H PRN PRN #1 box 08/24/20 famotidine 20 mg tablet 20 mg PO QHS PRN tablet 03/26/21 fluoxetine 20 mg capsule 20 mg PO DAILY cap 03/26/21 insulin detemir U-100 100 unit/mL (3 mL) subcutaneous pen 100 unit SC BID ml 03/26/21 insulin lispro 100 unit/mL subcutaneous pen 32 unit SUBCUT TIDAC ml 03/26/21 ipratropium 0.5 mg-albuterol 3 mg (2.5 mg base)/3 mL nebulization soln 3 ml INHALATION Q4H PRN ml 03/26/21 lisinopril 10 mg tablet 10 mg PO DAILY tablet 03/26/21 metformin 500 mg tablet,extended release 24 hr 2,000 mg PO DAILY tablet 03/26/21 metoprolol succinate 25 mg tablet,extended release 24 hr 25 mg PO DAILY tablet 03/26/21 furosemide 40 mg PO BID 07/17/21 nicotine (polacrilex) 2 mg BUCCAL Q2H PRN #40 ea 07/18/21 prednisone 40 mg PO BREAKFAST #6 tab 07/18/21 Hospital Course Summary of Care Provided Minutes Spent on Discharge: 28 Hospital Course: The 46-year-old female presents with increasing shortness of breath. Patient is on oxygen at home for sleep apnea as well as obesity hypoventilation. Patient presents with increased shortness of breath. Patient had a CAT scan performed earlier that showed some groundglass opacity. Patient was negative for Covid 19. Patient received prednisone as well as furosemide. Today the patient is much better at this time. I suspected that this is related with volume overload due to heart failure with preserved ejection fraction. Patient states that she has a very liberal fluid intake. Advised patient to regulate her fluid intake to 1500 cc if all types of fluid per day. Also advised her to check her weight daily and to take an additional dose of furosemide if her weight gains more than 2 pounds in 1 day or 3 pounds in a week. Physical Exam Const Nutritional Appearance: obese Resp normal respiratory effort, no retractions, no use of accessory muscles and clear to auscultation bilaterally Cardio regular rate, regular rhythm, S1 normal heart sound and S2 normal heart sound GI normal to inspection, nondistended, normoactive bowel sounds, soft to palpation, non-tender and non-distended ABG / Lab / Microbiology Data Result Diagrams: 07/18/21 06:30 07/18/21 06:30 Discharge Plan Admission Admit Date/Time: 07/17/21 17:39 Primary Reason for Your Visit: Respiratory failure Attending Provider: Faraz Lantigua Primary Care Provider: Tino Oreilly Instructions Additional Instructions / Restrictions: Weigh yourself daily. If you gain more than 2 pounds in 24 hours or 5 pounds in 1 week, you will need to take an extra dose of Lasix and notify your primary care office. Discharge Orders/Prescriptions Prescriptions: New prednisone 20 mg Tablet 40 mg PO BREAKFAST Qty: 6 RF: 0 nicotine (polacrilex) 2 mg gum 2 mg buccal Q2H PRN (Reason: nicotine cravings) Qty: 40 RF: 0 Continued loratadine 10 mg tablet 10 mg PO DAILY PRN (Reason: Allergies) RF: 0 insulin lispro 100 unit/mL insulin pen 32 unit subcut TIDAC RF: 0 ipratropium-albuterol 0.5 mg-3 mg(2.5 mg base)/3 mL solution for nebulization 3 ml inhalation Q4H PRN (Reason: Shortness Of Breath Or Wheezing) RF: 0 lisinopril 10 mg tablet 10 mg PO DAILY RF: 0 metformin 500 mg tablet extended release 24 hr 2,000 mg PO DAILY RF: 0 fluoxetine 20 mg capsule 20 mg PO DAILY RF: 0 metoprolol succinate 25 mg tablet extended release 24 hr 25 mg PO DAILY RF: 0 famotidine 20 mg tablet 20 mg PO QHS PRN (Reason: STOMACH) RF: 0 insulin detemir U-100 100 unit/mL (3 mL) insulin pen 100 unit SC BID RF: 0 hydrochlorothiazide 25 MG tablet 12.5 mg PO DAILY RF: 0 ukzrfmua-uvot-GE-calcium-mins 1 EACH tablet 1 ea PO DAILY RF: 0 gabapentin 300 MG capsule 900 mg PO BID RF: 0 dulaglutide 1.5 MG/0.5 ML pen injector 0.5 ml SQ PEREZ MDD 0.5ml RF: 0 omeprazole 40 MG capsule,delayed release(DR/EC) 40 mg PO DAILY RF: 0 atorvastatin 40 MG tablet 40 mg PO QHS RF: 0 aspirin 81 MG tablet 81 mg PO DAILY@0800 RF: 0 diltiazem HCl 120 MG capsule 120 mg PO DAILY RF: 0 apixaban 5 MG tablet 5 mg PO BID RF: 0 albuterol sulfate 2.5 MG/3 ML solution for nebulization 2.5 mg inhalation Q2H PRN PRN (Reason: SOB/Wheezing) Qty: 1 RF: 0 albuterol sulfate 1 PUFF inhaler 1 puff inhalation Q4H PRN PRN (Reason: Dyspnea, wheezing) Qty: 1 RF: 0 Oxygen, Home [Home Oxygen] 2 lpm NASAL DAILY 30 Days Qty: 30 RF: 0 furosemide 40 mg tablet 40 mg PO BID RF: 0 Referrals / Follow Up: Tino Oreilly MD [Primary Care Provider] - In 1 Week Nelly Hunter NP, [employer]CHITECT-C [Nurse Practitioner] - In 1 Week Disposition Disposition (needs filled in before D/C Order can be placed): Home, Self Care Charges/Coding Visit Charges Inpatient E&M: 54136 Disch Hosp
--- NOTE | 2021-07-18 11:58 | CASEMGMT ---
LORENZO GARCÍA assessment: Face to Face with patient for initial transition planning/care coordination assessment. LORENZO GARCÍA introduced self and role at [facility], pt voices understanding and consents to assessment. Pt is lying in bed in no distress. Pt is A/Ox4 and answers all questions appropriately. Care providers, pharmacy, and demographics verified. Presentation: SOB x5 days Admitting dx: Hypoxia PCP: [facility] Specialists: Tim, pulanupama; Moodispaw, cardio Preferred [facility]acy: [facility] Insurance: [facility] A/B, [facility] Prescription Benefit: Yes Living Will/HPOA: Pt states does not have LW/HPOA and declines AD info. LNOK: Naveed Gordon, daughter; Remedios Wallace, mother Living Arrangements: Pt states lives with niece in mobile home with 5 steps in and states no concerns at home. Pt states is independent with ADL's. Transportation: Pt states daughter/niece drive and state no transportation concerns. DME/HHC: Pt states has the following DME: [facility](does not use), nebulizer, bipap, and 2L nc thru [facility]. Pt states nebulizer has 'been acting up.' New order for increased home oxygen, 5L w/ exertion faxed to [facility] and they were also notified about pt's nebulizer/new order. Pt states no hx of HHC or SNF. Pt states no concerns with going home at time of discharge. Pt is on disability. Pt states still smokes 1 pack/day but does not drink ETOH. Pt states no further concerns/needs. CM to follow for any further discharge planning/needs. Advised pt to ask for CM if any further questions/concerns/needs arise, voices understanding. Pt Goal: Home Plan: [place] LORENZO GARCÍA
[2021-07-18] MEDS: Insulin Lispro 100 UNIT/ML INSULN.PEN 10 UNIT SC (12:19)
--- NOTE | 2021-07-18 12:30 | PHA.DC.MC ---
Pharmacy Service has performed discharge medication reconciliation and counseling for this patient. 1. PREDNISONE 40MG PO BREAKFAST X 3 DAYS 2. NICOTINE GUM 2MG 1 PIECE Q2H PRN NICOTINE CRAVING The patient's discharge medication list was reviewed for discrepancies and discrepancies were resolved. Home Medications hydrochlorothiazide 12.5 mg PO DAILY 02/02/17 dzuehqkc-cdlh-AY-calcium-mins 1 ea PO DAILY 03/26/17 gabapentin 900 mg PO BID 05/29/17 dulaglutide 0.5 ml SQ PEREZ MDD 0.5ml 06/08/18 omeprazole 40 mg PO DAILY 12/15/18 loratadine 10 mg tablet 10 mg PO DAILY PRN tab 03/01/20 apixaban 5 mg PO BID 08/20/20 aspirin 81 mg PO DAILY@0800 08/20/20 atorvastatin 40 mg PO QHS 08/20/20 diltiazem HCl 120 mg PO DAILY 08/20/20 Oxygen, Home [Home Oxygen] 2 lpm NASAL DAILY 30 Days #30 device 08/24/20 albuterol sulfate 1 puff INHALATION Q4H PRN PRN #1 inhaler 08/24/20 albuterol sulfate 2.5 mg INHALATION Q2H PRN PRN #1 box 08/24/20 famotidine 20 mg tablet 20 mg PO QHS PRN tablet 03/26/21 fluoxetine 20 mg capsule 20 mg PO DAILY cap 03/26/21 insulin detemir U-100 100 unit/mL (3 mL) subcutaneous pen 100 unit SC BID ml 03/26/21 insulin lispro 100 unit/mL subcutaneous pen 32 unit SUBCUT TIDAC ml 03/26/21 ipratropium 0.5 mg-albuterol 3 mg (2.5 mg base)/3 mL nebulization soln 3 ml INHALATION Q4H PRN ml 03/26/21 lisinopril 10 mg tablet 10 mg PO DAILY tablet 03/26/21 metformin 500 mg tablet,extended release 24 hr 2,000 mg PO DAILY tablet 03/26/21 metoprolol succinate 25 mg tablet,extended release 24 hr 25 mg PO DAILY tablet 03/26/21 furosemide 40 mg PO BID 07/17/21 nicotine (polacrilex) 2 mg BUCCAL Q2H PRN #40 ea 07/18/21 prednisone 40 mg PO BREAKFAST #6 tab 07/18/21 The patient was counseled on the following discharge medications and changes in medications for homegoing were reviewed. The Reason for Use, instructions for use, and potential side effects were reviewed for all new medications. The patient's questions regarding all of their medications were answered. The patient was able to verbally demonstrate an understanding of their discharge medications.
[2021-07-18] MEDS: COVID-19 VAC,AD26(JANSSEN)/PF 0.5 ML SYRINGE IM (12:53)
--- NOTE | 2021-07-19 13:46 | CASEMGMT ---
LORENZO GARCÍA Discharge Follow-up Phone Call: KATIANA: Andreina Strata: 3 Call Date: 07/19/21 Discharge Date: 07/18/21 Time of Call: 1344 Duration: 4 min Admitting Diagnosis: hypoxia LORENZO GARCÍA completed follow-up phone call after recent hospitalization. Patient states she is doing fine. Patient states she has no questions regarding discharge instructions. Patient was able to fill prescriptions without any issues. Patient is aware to schedule follow-up appts. Patient states she has been monitoring her weight and aware to notify PCP of increased weight gain. Patient had no further questions or concerns at this time.
== END 2021-07-18 13:39 | disposition home or self-care (01) | DRG 291 ==
LOC: ED 16:30 → PCU 17:26
PROVIDERS: Emergency Provider Emergency Medicine; PCP Family Medicine
DX: I11.0 Hypertensive heart disease with heart failure (principal); I50.31 Acute diastolic (congestive) heart failure; J96.21 Acute and chronic respiratory failure with hypoxia; Z68.43 Body mass index [BMI] 50.0-59.9, adult; E66.2 Morbid (severe) obesity with alveolar hypoventilation; J20.8 Acute bronchitis due to other specified organisms; Z23 Encounter for immunization; Z20.822 Contact with and (suspected) exposure to COVID-19; E11.65 Type 2 diabetes mellitus with hyperglycemia; E78.5 Hyperlipidemia, unspecified; K21.9 Gastro-esophageal reflux disease without esophagitis; G47.33 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 (adult) (pediatric); F32.9 Major depressive disorder, single episode, unspecified; F41.9 Anxiety disorder, unspecified; F17.210 Nicotine dependence, cigarettes, uncomplicated; Z79.01 Long term (current) use of anticoagulants; Z79.82 Long term (current) use of aspirin; Z79.4 Long term (current) use of insulin; Z79.52 Long term (current) use of systemic steroids; Z79.899 Other long term (current) drug therapy; I25.2 Old myocardial infarction; Z86.711 Personal history of pulmonary embolism; Z86.14 Personal history of Methicillin resistant Staphylococcus aureus infection
CPT/HCPCS: 0031A; 36415; 71045; 71275; 80053; 82962; 83880; 84484; 85025; 87426; 87635; 91303; 93005; 94640; 99251; 99284; 99285; Q9967; U0005; A4216; G0463; J1940; U0003

== ENCOUNTER → 2021-08-20 10:36 | Outpatient (CLI) | payer MEDICARE, MEDICAID, SELFPAY ==
[2021-08-20 13:29] LABS: Anion Gap 7 (5-15); BUN 22 mg/dL (7-18); BUN/Creat Ratio 26.6 RATIO (10-20); Calcium,Total 9.3 mg/dL (8.5-10.1); Chloride 89 mmol/L (98-107); Creatinine, Serum 0.83 mg/dL (0.55-1.02); EST Glomerular Filtration Rate 80 mL/min (>60); Est Glom Filt Rate - Afr Amer 96 mL/min (>60); Glucose 374 mg/dL (74-106); Potassium 3.9 mmol/L (3.5-5.1); Sodium Level 133 mmol/L (136-145)
== END ==
PROVIDERS: PCP Family Medicine; Referring Provider Physician Assistant Medical; Visit Provider Physician Assistant Medical
DX: J96.21 Acute and chronic respiratory failure with hypoxia (principal); J96.22 Acute and chronic respiratory failure with hypercapnia
CPT/HCPCS: 36415; 80048

== ENCOUNTER 2021-09-16 23:28 | Emergency (ER) | payer MEDICARE, MEDICAID, SELFPAY ==
[2021-09-16 23:30] VITALS: BP 177/78; PULSE 106; RESP 20; TEMP 36.8; O2SAT 98; BMI 61.9
--- NOTE | 2021-09-16 23:35 | RAD_ITS ---
STUDY: X-RAY CHEST REASON FOR EXAM: Female, 46 years old. chest pain TECHNIQUE: AP portable COMPARISON: 07/17/2021 FINDINGS: The lungs are clear and expanded. There is no demonstrated pleural abnormality. Normal size heart. Normal mediastinum and evi. Normal visualized pulmonary arteries. Normal visualized aortic arch and descending thoracic aorta. Normal visualized thoracic spine. Normal visualized ribs, clavicles, and shoulders. There is no demonstrated abnormality of the visualized soft tissue structures of the upper abdomen. RAD/Chest 1 View (Portable) IMPRESSION: Negative x-ray examination of the chest. No interval change. Electronically Signed: Eleuterio Palomino MD at 0:07 EDT Tel , Service support ,
--- NOTE | 2021-09-16 23:35 | EKG12_ITS ---
Test Reason : CP Blood Pressure : / mmHG Vent. Rate : 105 BPM Atrial Rate : 105 BPM P-R Int : 136 ms QRS Dur : 092 ms QT Int : 340 ms P-R-T Axes : 052 -01 063 degrees QTc Int : 449 ms Sinus tachycardia Otherwise normal ECG Confirmed by HASMUKH LORA, LILIANA ([id number]), news editor DANIELE MALDONADO ([id number]) on 09/18/2021 9:21:46 AM Referred By: BON Confirmed By:LILIANA NOE MD
--- NOTE | 2021-09-17 00:10 | ED.VIS.CHEST ---
HPI History of Present Illness Chief Complaint: Chest Pain Narrative Narrative: 46-year-old female presenting with right-sided chest pain. Its in the right upper pectoralis region and extends to the right shoulder and into the right trapezius. She has pain which radiates down the right arm. She states this started about 1:00 PM yesterday. Patient states that it has been painful the whole day. She describes it as sharp and achy. She denies chest pressure. There is no left-sided chest pain or paresthesia. She denies any injury. She states that she could have possibly slept on her shoulder wrong. She is not having any shortness of breath, cough, fever, chills. Patient is on her baseline oxygen. She is on Eliquis for history of pulmonary emboli. She has not changed this. She has not missed a dose. Patient states that her last stress test was about a year ago and was normal. [facility] Medical History Abscess Abscess of vulva KERRY (acute kidney injury) Anxiety BiPAP (biphasic positive airway pressure) dependence Chronic diastolic (congestive) heart failure Chronic respiratory failure with hypoxia COPD (chronic obstructive pulmonary disease) Depression Diabetes Dyspnea on exertion Essential hypertension GERD (gastroesophageal reflux disease) Hidradenitis History of left heart catheterization (LHC) (~01/05/19) History of MRSA infection Hyperglycemia due to type 2 diabetes mellitus Hyperlipidemia Hypertension Morbid obesity Necrotizing soft tissue infection Non-healing open wound of left groin NSTEMI (non-ST elevated myocardial infarction) 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 Old myocardial infarction On home oxygen therapy Open wound of vulva with complication Opiate overdose Pulmonary embolism Respiratory failure with hypoxia Restrictive lung disease secondary to obesity Sleep apnea Smoker Soft tissue abscess of inguinal region Tobacco abuse Type 2 diabetes mellitus Home Medications hydrochlorothiazide 12.5 mg PO DAILY 02/02/17 [History Last Taken 07/17/21] rwprzvld-jzqu-ZH-calcium-mins 1 ea PO DAILY 03/26/17 [History Last Taken 07/17/21] gabapentin 900 mg PO BID 05/29/17 [History Last Taken 07/17/21] dulaglutide 1 ml SQ PEREZ MDD 0.5ml 06/08/18 [History Last Taken 07/15/21] omeprazole 40 mg PO DAILY 12/15/18 [History Last Taken 07/17/21] loratadine 10 mg tablet 10 mg PO DAILY PRN tab 03/01/20 [History Last Taken 07/17/21] apixaban 5 mg PO BID 08/20/20 [History Last Taken 07/17/21] atorvastatin 40 mg PO QHS 08/20/20 [History Last Taken 07/16/21] diltiazem HCl 120 mg PO DAILY 08/20/20 [History Last Taken 07/17/21] Oxygen, Home [Home Oxygen] 2 lpm NASAL DAILY 30 Days #30 device 08/24/20 [Rx Last Taken Unknown] albuterol sulfate 1 puff INHALATION Q4H PRN PRN #1 inhaler 08/24/20 [Rx Last Taken Unknown] albuterol sulfate 2.5 mg INHALATION Q2H PRN PRN #1 box 08/24/20 [Rx Last Taken 07/17/21] famotidine 20 mg tablet 20 mg PO QHS PRN tablet 03/26/21 [History Last Taken Unknown] fluoxetine 20 mg capsule 20 mg PO DAILY cap 03/26/21 [History Last Taken 07/17/21] insulin detemir U-100 100 unit/mL (3 mL) subcutaneous pen 100 unit SC BID ml 03/26/21 [History Last Taken 07/17/21] insulin lispro 100 unit/mL subcutaneous pen 36 unit SUBCUT TIDAC ml 03/26/21 [History Last Taken 07/17/21] ipratropium 0.5 mg-albuterol 3 mg (2.5 mg base)/3 mL nebulization soln 3 ml INHALATION Q4H PRN ml 03/26/21 [History Last Taken Unknown] lisinopril 10 mg tablet 10 mg PO DAILY tablet 03/26/21 [History Last Taken 07/17/21] metformin 500 mg tablet,extended release 24 hr 2,000 mg PO DAILY tablet 03/26/21 [History Last Taken 07/17/21] metoprolol succinate 25 mg tablet,extended release 24 hr 25 mg PO DAILY tablet 03/26/21 [History Last Taken 07/17/21] nicotine (polacrilex) 2 mg BUCCAL Q2H PRN #40 ea 07/18/21 [Rx Last Taken Unknown] potassium chloride 20 mEq tablet,extended release 20 meq PO BID #60 tab 08/02/21 [Rx Last Taken Unknown] furosemide 40 mg tablet 80 mg PO BID tab 08/20/21 [History Last Taken Unknown] Allergy/AdvReac Type Severity Reaction Status Date / Time cyclobenzaprine HCl Allergy Hives Verified 08/20/21 09:53 [From Flexeril] venlafaxine [From Effexor] AdvReac Severe unknown Verified 08/20/21 09:53 Family History Father CVA (cerebral vascular accident) Heart disease Diabetes Mother Thyroid disorder Surgical History H/O arthroscopic knee surgery History of delivery History of cholecystectomy Social History Smoking Status: Current every day smoker tobacco type: cigarettes how long ago did patient quit smokin PPD smoker second hand exposure: Yes alcohol intake: never substance use type: does not use caffeine: Yes Type: carbonated beverages Number of servings: 1 and coffee Number of servings: 1 ROS ROS ED Constitutional Constitutional ED: Denies chills or fever(s) Eyes Eyes: Denies blurry vision or change in vision ENT ENT ED: Denies rhinorrhea or sore throat Cardiovascular Cardiovascular: Reports chest pain Respiratory/Chest Respiratory/Chest: Denies cough or dyspnea Gastrointestinal Gastrointestinal: Denies abdominal pain, nausea or vomiting Genitourinary Genitourinary ED: Denies dysuria or hematuria Musculoskeletal Musculoskeletal: Denies arthralgias, myalgias or neck pain Integumentary Denies abscess or Abrasions Neurologic Neurologic: Denies headache(s) or paresthesias EXAM Physical Exam Const Vital Signs: 09/16/21 23:30 09/16/21 23:33 09/16/21 23:35 Temperature 98.2 F Temperature Source Oral Pulse Rate 106 H Respiratory Rate 20 H Respiratory Effort Normal Respiratory Pattern Normal Blood Pressure 177/78 H Blood Pressure Mean 111 Pulse Ox 98 Oxygen Delivery Method Nasal Cannula Nasal Cannula Oxygen Flow Rate (L/min) 2 2 09/17/21 02:47 Temperature Temperature Source Pulse Rate 101 H Respiratory Rate 18 Respiratory Effort Respiratory Pattern Blood Pressure 126/78 H Blood Pressure Mean Pulse Ox 96 Oxygen Delivery Method Oxygen Flow Rate (L/min) Positive well nourished and obese General Appearance ED: NAD; Negative for pallor Nutritional Appearance: obese HEENT Reports moist mucous membranes normocephalic and atraumatic Eyes PERRL and EOMs intact bilaterally General Eye ED: Negative for pale conjunctiva Neck no lymphadenopathy and supple Chest Wall Chest Narrative: Tenderness to palpation to the right upper aspect of the chest overlying the pectoralis and into the right anterior shoulder. There is also pain in the right trapezius laterally. Resp normal respiratory effort Effort and Inspection: respiratory distress Cardio regular rate and regular rhythm GI normal to inspection, nondistended, normoactive bowel sounds Extremity Extremity Narrative: Patient has tenderness to palpation over the right anterior shoulder at the AC joint. There is also tenderness into the trapezius. No crepitance. Patient has full range of motion of the right shoulder although this does elicit pain. Radial pulse 2+. Neurologically intact right upper extremity. Neuro oriented x3 Sensorium / Orientation: awake Psych mental status grossly normal Skin General Skin Exam: Negative for jaundice or pallor Heart Score History: Slightly/Non-Suspicious ECG: Normal Age: </= 45 years Risk Factors: >/= 3 Risk Factors or History of CAD Troponin: </= Normal Limit Score: 2 MDM MDM MDM Narrative Medical decision making narrative: Patient presenting with right-sided chest pain which is reproducible both with palpation and with range of motion of the right shoulder. I did perform an EKG and on my interpretation it shows a sinus rhythm with a ventricular rate of 105 bpm without sign of ischemic change or dysrhythmia. Chest x-ray on my interpretation shows no acute cardiopulmonary process and the radiologist does agree. Patient CBC shows no leukocytosis, hemoglobin are stable. Platelets are normal. Renal function and electrolytes are normal. The patient's blood sugar is elevated at 321 but she has no anion gap. Both of her troponins 2 h apart were 27. Given this I do not believe this is ACS. Patient is currently on Eliquis for history of PE so I feel PE is less likely. Likely since I can reproduce the pain. Patient will use Tylenol or ibuprofen alternating dose as well as ice and heat at home. I did offer a muscle after however she states that she is allergic to cyclobenzaprine and does not want to try another kind. Patient will be discharged home in stable condition. Impression: 1. Right-sided chest pain 2. Muscle strain Lab Data Labs: Laboratory Results - last 24 hr 10/17/21 10/17/21 10/18/21 23:50 23:50 01:50 WBC 10.9 RBC 4.62 Hgb 13.4 Hct 41.2 MCV 89.2 MCH 29.0 MCHC 32.5 RDW Std Deviation 49.8 H RDW Coeff of Darrion 15.3 H Plt Count 246 MPV 10.1 Immature Gran % (Auto) 0.500 Neut % (Auto) 70.1 H Lymph % (Auto) 23.2 [place] % (Auto) 3.9 Eos % (Auto) 1.6 Baso % (Auto) 0.7 Absolute Neuts (auto) 7.6 Absolute Lymphs (auto) 2.53 Nucleated RBC % 0 Sodium 133 L Potassium 3.9 Chloride 94 L Carbon Dioxide 34.0 H Anion Gap 5 BUN 24 H Creatinine 0.93 Estim Creat Clear Calc 69.46 Est GFR (MDRD) Af Amer 84 Est GFR (MDRD) Non-Af 69 BUN/Creatinine Ratio 25.8 H Glucose 321 H Calcium 8.8 Troponin I High Sens 27 27 Radiography Diagnostic Testing: Clinical Impression(s) from Imaging Studies Chest X-Ray 09/16/21 23:35 IMPRESSION: Negative x-ray examination of the chest. No interval change. Electronically Signed: Eleuterio Palomino MD at 0:07 EDT Tel , Service support , Discharge Plan Triage Chief Complaint: Chest Pain ED Provider: Rupert Pitts Dx/Rx/DC Orders Instructions: ED Chest Pain, Noncardiac Prescriptions: No Action loratadine 10 mg tablet 10 mg PO DAILY PRN (Reason: Allergies) RF: 0 insulin lispro 100 unit/mL insulin pen 36 unit subcut TIDAC RF: 0 ipratropium-albuterol 0.5 mg-3 mg(2.5 mg base)/3 mL solution for nebulization 3 ml inhalation Q4H PRN (Reason: Shortness Of Breath Or Wheezing) RF: 0 lisinopril 10 mg tablet 10 mg PO DAILY RF: 0 metformin 500 mg tablet extended release 24 hr 2,000 mg PO DAILY RF: 0 fluoxetine 20 mg capsule 20 mg PO DAILY RF: 0 metoprolol succinate 25 mg tablet extended release 24 hr 25 mg PO DAILY RF: 0 famotidine 20 mg tablet 20 mg PO QHS PRN (Reason: STOMACH) RF: 0 insulin detemir U-100 100 unit/mL (3 mL) insulin pen 100 unit SC BID RF: 0 hydrochlorothiazide 25 MG tablet 12.5 mg PO DAILY RF: 0 occjdcre-uykz-TC-calcium-mins 1 EACH tablet 1 ea PO DAILY RF: 0 gabapentin 300 MG capsule 900 mg PO BID RF: 0 dulaglutide 1.5 MG/0.5 ML pen injector 1 ml SQ PEREZ MDD 0.5ml RF: 0 omeprazole 40 MG capsule,delayed release(DR/EC) 40 mg PO DAILY RF: 0 atorvastatin 40 MG tablet 40 mg PO QHS RF: 0 diltiazem HCl 120 MG capsule 120 mg PO DAILY RF: 0 apixaban 5 MG tablet 5 mg PO BID RF: 0 albuterol sulfate 2.5 MG/3 ML solution for nebulization 2.5 mg inhalation Q2H PRN PRN (Reason: SOB/Wheezing) Qty: 1 RF: 0 albuterol sulfate 1 PUFF inhaler 1 puff inhalation Q4H PRN PRN (Reason: Dyspnea, wheezing) Qty: 1 RF: 0 Oxygen, Home [Home Oxygen] 2 lpm NASAL DAILY 30 Days Qty: 30 RF: 0 nicotine (polacrilex) 2 mg gum 2 mg buccal Q2H PRN (Reason: nicotine cravings) Qty: 40 RF: 0 furosemide 40 mg tablet 80 mg PO BID RF: 0 potassium chloride 20 mEq tablet extended release 20 meq PO BID Qty: 60 RF: 11 Primary Care Provider: Tino Oreilly Referrals: Tino Oreilly MD [Primary Care Provider] - Disposition Disposition: Home, Self Care Discharge Date/Time: 09/17/21 02:48
[2021-09-17 00:11] LABS: Absolute Lymphocyte Count 2.53 X10^3/uL (0.83-4.51); Absolute Neutrophil Count 7.6 X10^3/uL (2.0-7.7); Basophil# 0.08 X10^3/uL; Basophil% 0.7 % (0-1); Eosinophil# 0.18 X10^3/uL; Eosinophils% 1.6 % (0-5); Hematocrit 41.2 % (37-47); Hemoglobin 13.4 g/dL (12.0-15.0); Lymphocyte # 2.53 X10^3/ul (0.83-4.51); Lymphocyte % 23.2 % (19-41); Mean Corp Hgb Conc 32.5 g/dL (32-36); Mean Corpuscular Volume 89.2 fL (81-99); Mean Platelet Vol. 10.1 fl (6.2-12.0); Monocyte# 0.43 X10^3/uL; Monocyte% 3.9 % (0-10); NRBC Flagged by Analyzer 0 % (0-5); Neutrophil # 7.63 X10^3/uL (2.7-7.7); Neutrophil % 70.1 % (47-70); Platelet Count 246 K/mm3 (150-450); RBC Distribution Width CV 15.3 % (11.6-14.6); RBC Distribution Width SD 49.8 fl (35.1-43.9); Red Blood Count 4.62 M/mm3 (4.2-5.4); White Blood Count 10.9 K/mm3 (4.4-11.0)
[2021-09-17 00:19] LABS: Anion Gap 5 (5-15); BUN 24 mg/dL (7-18); BUN/Creat Ratio 25.8 RATIO (10-20); Calcium,Total 8.8 mg/dL (8.5-10.1); Chloride 94 mmol/L (98-107); Creatinine, Serum 0.93 mg/dL (0.55-1.02); EST Glomerular Filtration Rate 69 mL/min (>60); Est Glom Filt Rate - Afr Amer 84 mL/min (>60); Estimated Creatinine Clearance 69.46 ml/min; Glucose 321 mg/dL (74-106); Potassium 3.9 mmol/L (3.5-5.1); Sodium Level 133 mmol/L (136-145); Troponin-I HS 27 pg/mL (3.0-54.0)
[2021-09-17] MEDS: Ondansetron 4 MG/2 ML Vial IV (00:28)
[2021-09-17] MEDS: Morphine 4 MG/ML Syringe IV (00:28)
[2021-09-17 02:24] LABS: Troponin-I HS 27 pg/mL (3.0-54.0)
[2021-09-17 02:47] VITALS: BP 126/78; PULSE 101; RESP 18; O2SAT 96
== END 2021-09-17 02:48 | disposition home or self-care (01) ==
PROVIDERS: Emergency Provider Student in an Organized Health Care Education/Training Program; PCP Family Medicine
DX: R07.9 Chest pain, unspecified (principal); M79.601 Pain in right arm; S29.011A Strain of muscle and tendon of front wall of thorax, initial encounter; S21.90XA Unspecified open wound of unspecified part of thorax, initial encounter; X58.XXXA Exposure to other specified factors, initial encounter; Y93.9 Activity, unspecified; Y92.9 Unspecified place or not applicable; Y99.9 Unspecified external cause status; I11.0 Hypertensive heart disease with heart failure; J96.11 Chronic respiratory failure with hypoxia; I50.32 Chronic diastolic (congestive) heart failure; J44.9 Chronic obstructive pulmonary disease, unspecified; E11.65 Type 2 diabetes mellitus with hyperglycemia; E78.5 Hyperlipidemia, unspecified; K21.9 Gastro-esophageal reflux disease without esophagitis; G47.33 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 (adult) (pediatric); E66.01 Morbid (severe) obesity due to excess calories; F32.A Depression, unspecified; F41.9 Anxiety disorder, unspecified; F17.210 Nicotine dependence, cigarettes, uncomplicated; Z79.4 Long term (current) use of insulin; Z79.01 Long term (current) use of anticoagulants; I25.2 Old myocardial infarction; Z86.711 Personal history of pulmonary embolism; Z86.14 Personal history of Methicillin resistant Staphylococcus aureus infection
CPT/HCPCS: 71045; 80048; 84484; 85025; 93005; 96374; 96375; 99284; A4216; J2405

== ENCOUNTER 2022-01-15 15:01 | Inpatient (IN) | payer MEDICARE, MEDICAID, SELFPAY ==
[2022-01-15] VITALS (15 sets, daily range): BP systolic 106–139; BP diastolic 70–100; PULSE 98–110; RESP 14–28; TEMP 3.1–37.6; O2SAT 69–98; BMI 65.2; BMI 64.7
--- NOTE | 2022-01-15 15:28 | RAD_ITS ---
STUDY: X-RAY - RIGHT KNEE REASON FOR EXAM: Female, 46 years old. FALL, PAIN RT KNEE, UNABLE TO HOLD STILL, KNEE WAS TWITCHING CONSTANTLY, BEST IMAGES POSSIBLE TECHNIQUE: 2 view(s) of the knee. COMPARISON: None. FINDINGS: Normal visualized distal femur. Normal visualized proximal tibia and fibula. Normal proximal tibiofibular articulation. There is no demonstrated fracture. There is mild degenerative arthrosis of the medial femorotibial compartment. There is mild degenerative arthrosis of the lateral femorotibial compartment. There is moderate degenerative arthrosis of the patellofemoral articulation. There is a soft tissue prominence in the suprapatellar region suggesting a small volume joint effusion. The soft tissue structures are unremarkable. RAD/Knee 1 or 2 Views IMPRESSION: Degenerative arthrosis. Electronically Signed: Marcellus Cohen MD at 16:43 EST ,
--- NOTE | 2022-01-15 15:28 | CT_ITS ---
STUDY: CT CERVICAL SPINE WITHOUT CONTRAST REASON FOR EXAM: Female, 46 years old. Neck injury RADIATION DOSAGE (If Supplied By Facility): CTDIvol = ( 45.53 ) mGy, DLP = ( 940.79 ) mGycm TECHNIQUE: High resolution transaxial imaging was performed without contrast material. Sagittal and coronal images were reconstructed. Individualized dose optimization techniques were used for this CT. COMPARISON: Chest x-ray dated January 15, 2022 FINDINGS: Normal craniovertebral junction. Normal anterior atlantoaxial articulation. Normal odontoid process. There is straightening of the normal cervical lordosis. Normal vertebral bodies and posterior osseous elements. No visualized acute fracture or compression deformity. Normal endplates. Normal disc height and morphology. Normal central canal and intervertebral neuroforamina. Normal visualized soft tissue structures. Moderate consolidation is seen in the apex of the right upper lobe corresponding to the consolidation seen on the recent chest x-ray. CT/Spine Cervical without Contras IMPRESSION: 1. Straightening of the cervical lordosis. 2. Moderate consolidation in the right upper lobe Electronically Signed: Marcellus Cohen MD at 16:46 EST Reading Location ID and State: [facility] / [place] , Service support ,
--- NOTE | 2022-01-15 15:28 | RAD_ITS ---
STUDY: X-RAY CHEST REASON FOR EXAM: Female, 46 years old. sob TECHNIQUE: Single AP portable view of the chest. COMPARISON: September 16, 2021 FINDINGS: Moderate patchy consolidation is present in the right upper and lower lobes. No visualized consolidation of the left lung although the cardiac silhouette obscures the medial aspect. There is no demonstrated pleural abnormality. There is mild cardiac enlargement. Normal mediastinum and evi. Normal visualized pulmonary arteries. Normal visualized aortic arch and descending thoracic aorta. Normal visualized thoracic spine. Normal visualized ribs, clavicles, and shoulders. There is no demonstrated abnormality of the visualized soft tissue structures of the upper abdomen. IMPRESSION: Right pneumonia Moderate patchy consolidation is present in the right upper and lower lobes. No visualized consolidation of the left lung although the cardiac silhouette obscures the medial aspect. Electronically Signed: Marcellus Cohen MD at 16:42 EST , RAD/Chest 1 View (Portable)
--- NOTE | 2022-01-15 15:29 | EKG12_ITS ---
Test Reason : SOB Blood Pressure : / mmHG Vent. Rate : 105 BPM Atrial Rate : 105 BPM P-R Int : 144 ms QRS Dur : 084 ms QT Int : 326 ms P-R-T Axes : 051 -03 060 degrees QTc Int : 430 ms Sinus tachycardia Poor R wave progression Confirmed by MELISSA LORA, CRISTEL ([id number]), health editor DANIELE MALDONADO ([id number]) on 01/16/2022 11:56:27 AM Referred By: AJITH Confirmed By:CRISTEL TORRES MD
--- NOTE | 2022-01-15 15:31 | EDS_ITS ---
HPI History of Present Illness Chief Complaint: Shortness of Breath Informant: patient Narrative Narrative: Increasing dyspnea wheeze for the past 2 days. States bilateral hand weakness noted she is dropping things. No paresthesias. Been going on for 2 days. No chest pains. No cough. History of restrictive lung disease per patient states she was bored with it. She wears 2 to 4 L of oxygen, higher end when she exerts herself. Tobacco history. Denies COPD or asthma. History of sleep apnea. States unable to coordinate with her phone with her fingers. Called PCP office today referred to the ED. On the way out of the house she slipped on mud falling injuring her right knee and hitting her head. Denies loss of consciousness. Patient apparently on Eliquis for history of PE. No nausea or vomiting. Patient did not check her glucose today. COVID vaccinated with [employer], no booster. She reports hospitalized 6 to 9 months ago stating she was on a ventilator secondary to her restrictive lung disease. Prior similar symptoms: Yes PFSH PFSH Medical History Abscess Abscess of vulva KERRY (acute kidney injury) Anxiety BiPAP (biphasic positive airway pressure) dependence Chronic diastolic (congestive) heart failure Chronic respiratory failure with hypoxia COPD (chronic obstructive pulmonary disease) Depression Diabetes Dyspnea on exertion Essential hypertension GERD (gastroesophageal reflux disease) Hidradenitis History of left heart catheterization (LHC) (~01/05/19) History of MRSA infection Hyperglycemia due to type 2 diabetes mellitus Hyperlipidemia Hypertension Morbid obesity Necrotizing soft tissue infection Non-healing open wound of left groin NSTEMI (non-ST elevated myocardial infarction) 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 Old myocardial infarction On home oxygen therapy Open wound of vulva with complication Opiate overdose Pulmonary embolism Respiratory failure with hypoxia Restrictive lung disease secondary to obesity Sleep apnea Smoker Soft tissue abscess of inguinal region Tobacco abuse Type 2 diabetes mellitus Home Medications [id number]-[id number] 1 ea PO DAILY 03/26/17 [History Last Taken 01/15/22] gabapentin 900 mg PO BID 05/29/17 [History Last Taken 01/15/22] omeprazole 40 mg PO DAILY 12/15/18 [History Last Taken 01/15/22] loratadine 10 mg tablet 10 mg PO DAILY PRN tab 03/01/20 [History Last Taken 01/15/22] apixaban 5 mg PO BID 08/20/20 [History Last Taken 01/15/22] atorvastatin 40 mg PO QHS 08/20/20 [History Last Taken 01/15/22] diltiazem HCl 120 mg PO DAILY 08/20/20 [History Last Taken 01/15/22] insulin lispro 100 unit/mL subcutaneous pen 42 unit SUBCUT TIDAC ml 03/26/21 [History Last Taken 01/15/22] ipratropium 0.5 mg-albuterol 3 mg (2.5 mg base)/3 mL nebulization soln 3 ml INHALATION Q4H PRN ml 03/26/21 [History Last Taken 01/15/22] lisinopril 10 mg tablet 10 mg PO DAILY tablet 03/26/21 [History Last Taken 01/15/22] metformin 500 mg tablet,extended release 24 hr 2,000 mg PO DAILY tablet 03/26/21 [History Last Taken 01/15/22] metoprolol succinate 25 mg tablet,extended release 24 hr 25 mg PO DAILY tablet 03/26/21 [History Last Taken 01/15/22] potassium chloride 20 mEq tablet,extended release 20 meq PO BID #60 tab 08/02/21 [Rx Last Taken 01/15/22] furosemide 40 mg tablet 80 mg PO BID tab 08/20/21 [History Last Taken 01/15/22] cholecalciferol (vitamin D3) 1,250 mcg PO WE 01/15/22 [History Last Taken 01/09/22] dulaglutide [Trulicity] 4.5 mg SUBCUT WE 01/15/22 [History Last Taken 01/09/22] hydrochlorothiazide 12.5 mg PO DAILY 01/15/22 [History Last Taken 01/15/22] insulin degludec [Tresiba FlexTouch U-200] 100 unit SUBCUT BID 01/15/22 [History Last Taken 01/15/22] Allergy/AdvReac Type Severity Reaction Status Date / Time cyclobenzaprine HCl Allergy Hives Verified 01/15/22 15:03 [From Flexeril] venlafaxine [From Effexor] AdvReac Severe unknown Verified 01/15/22 15:03 Family History Father CVA (cerebral vascular accident) Heart disease Diabetes Mother Thyroid disorder Surgical History H/O arthroscopic knee surgery History of delivery History of cholecystectomy Social History Smoking Status: Current every day smoker tobacco type: cigarettes how long ago did patient quit smokin PPD smoker second hand exposure: Yes alcohol intake: never substance use type: does not use caffeine: Yes Type: carbonated beverages Number of servings: 1 and coffee Number of servings: 1 ROS ROS ED Constitutional Constitutional ED: Denies chills, fever(s) or sweats Eyes Eyes: Denies change in vision ENT ENT ED: Denies dysphagia or sore throat Cardiovascular Cardiovascular: Denies chest pain, leg edema, palpitations or racing heartbeat Respiratory/Chest Respiratory/Chest: Reports dyspnea; Denies cough or dyspnea on exertion Gastrointestinal Gastrointestinal: Denies abdominal pain, diarrhea, nausea or vomiting Genitourinary Genitourinary ED: Denies dysuria, hematuria or urinary frequency Musculoskeletal Musculoskeletal: Reports other Details: Right knee pain ; Denies back pain, extremity pain or neck pain Integumentary Denies rash or wounds Neurologic Neurologic: Reports headache(s) and weakness; Denies paresthesias EXAM Physical Exam Const Vital Signs: 01/15/22 15:04 01/15/22 15:06 01/15/22 15:24 Temperature 97.6 F L Temperature Source Temporal Pulse Rate 110 H Respiratory Rate 23 H Respiratory Effort Short of Breath Respiratory Depth Shallow Respiratory Pattern Tachypnea Blood Pressure 129/100 H Blood Pressure Mean 109 Pulse Ox 69 93 Oxygen Delivery Method Room Air Nasal Cannula Oxygen Flow Rate (L/min) 4 01/15/22 15:39 01/15/22 15:42 01/15/22 16:28 Temperature 98.2 F Temperature Source Temporal Pulse Rate 105 H 105 H 107 H Respiratory Rate 20 H 25 H 20 H Respiratory Effort Respiratory Depth Respiratory Pattern Tachypnea Blood Pressure 123/84 H 119/100 H Blood Pressure Mean 97 106 Pulse Ox 95 96 Oxygen Delivery Method Nasal Cannula Nasal Cannula Oxygen Flow Rate (L/min) 4 4 Positive well nourished, well developed and obese Constitutional Narrative: Current 4 L nasal cannula General Appearance ED: well developed and NAD Nutritional Appearance: obese HEENT Reports moist mucous membranes HEENT Narrative: No hemotympanums. normocephalic and atraumatic Eyes PERRL, EOMs intact bilaterally and conjunctivae normal General Eye ED: Yes normal appearance of both eyes Neck no lymphadenopathy and supple General: Negative for tenderness Chest Wall Chest Narrative: No chest wall tenderness. Chest: Negative for tenderness Resp normal respiratory effort and normal air movement Resp Narrative: Expiratory wheezing noted. Effort and Inspection: symmetric chest movement; Negative for respiratory distress Cardio regular rate, regular rhythm and no murmurs Rate: tachycardic Peripheral Pulses: pulses 2+ throughout GI normal to inspection, nondistended, normoactive bowel sounds and non-tender Palpation: Negative for guarding or rebound tenderness present Back/Spine no CVA tenderness and no thoracic nor lumbar tenderness Extremity normal to inspection Extremity Narrative: Right lower extremity: Negative logroll, knee extensor mechanism intact, no patellar tenderness. No deformities. Skin intact. Neurovascular intact. Left lower extremity: - log roll. no deformity. Neurovascular intact distally. General Extremety ED: Yes tenderness; Negative for edema General Extremity: Negative for edema Neuro oriented x3 and no sensory deficits noted Sensorium / Orientation: awake and alert Skin no rashes or lesions noted and no wounds MDM MDM MDM Narrative Medical decision making narrative: Patient currently on 4 L of oxygen no respiratory distress expiratory wheezing on exam. She given aerosol treatments. Work-up initiated. Chest x-ray reporting right sided upper lobe consolidation. White count was 14. She is slightly tachycardic. I did add lactic acid and blood cultures. Lactic acid returned at 1.7. Sodium 130 creatinine 1.3 slightly elevated from previous. Glucose at 267 normal anion gap. Discussed with patient she was still denying any significant cough, however x-ray findings was impressive on the right upper lobe. She had the white count. She is covered with Rocephin and Zithromax. I discussed with hospitalist Dr. Chu who will admit to PCU. Added on BNP which was normal. With patient's fall on Eliquis with head injury, trauma scans head and neck was obtained shows no acute process. Right knee x-ray also negative. With her taking Eliquis lower concerns for PE. Lab Data Attestation: I reviewed the patient's lab results. Labs: Laboratory Results - last 24 hr 01/15/22 01/15/22 01/15/22 15:20 15:20 15:20 WBC 14.4 H RBC 4.09 L Hgb 12.4 Hct 39.4 MCV 96.3 MCH 30.3 MCHC 31.5 L RDW Std Deviation 49.1 H RDW Coeff of Darrion 13.8 Plt Count 268 MPV 10.3 Immature Gran % (Auto) 0.600 Neut % (Auto) 76.4 H Lymph % (Auto) 16.4 L [place] % (Auto) 5.2 Eos % (Auto) 0.8 Baso % (Auto) 0.6 Absolute Neuts (auto) 11.0 H Absolute Lymphs (auto) 2.36 Nucleated RBC % 0 Sodium 130 L Potassium 4.7 Chloride 97 L Carbon Dioxide 29.0 Anion Gap 4 L BUN 34 H Creatinine 1.30 H Estim Creat Clear Calc 47.69 Est GFR (MDRD) Af Amer 57 L Est GFR (MDRD) Non-Af 47 L BUN/Creatinine Ratio 26.2 H Glucose 267 H Lactic Acid Calcium 8.6 Total Bilirubin 0.40 AST 20 ALT 25 Alkaline Phosphatase 85 Troponin I High Sens 25 B-Natriuretic Peptide 22.1 Total Protein 7.5 Albumin 3.1 L Globulin 4.4 H Albumin/Globulin Ratio 0.7 L 01/15/22 17:00 WBC RBC Hgb Hct MCV MCH MCHC RDW Std Deviation RDW Coeff of Darrion Plt Count MPV Immature Gran % (Auto) Neut % (Auto) Lymph % (Auto) [place] % (Auto) Eos % (Auto) Baso % (Auto) Absolute Neuts (auto) Absolute Lymphs (auto) Nucleated RBC % Sodium Potassium Chloride Carbon Dioxide Anion Gap BUN Creatinine Estim Creat Clear Calc Est GFR (MDRD) Af Amer Est GFR (MDRD) Non-Af BUN/Creatinine Ratio Glucose Lactic Acid 1.7 Calcium Total Bilirubin AST ALT Alkaline Phosphatase Troponin I High Sens B-Natriuretic Peptide Total Protein Albumin Globulin Albumin/Globulin Ratio Radiography Chest X-Ray - ED: 1 View, Read by ED Physician and Read by Radiologist Diagnostic Testing: Clinical Impression(s) from Imaging Studies Cervical Spine CT 01/15/22 15:28 IMPRESSION: 1. Straightening of the cervical lordosis. 2. Moderate consolidation in the right upper lobe Electronically Signed: Marcellus Cohen MD at 16:46 EST Reading Location ID and State: [facility] / [place] , Service support , Chest X-Ray 01/15/22 15:28 Knee X-Ray 01/15/22 15:28 IMPRESSION: Degenerative arthrosis. Electronically Signed: Marcellus Cohen MD at 16:43 EST , Brain CT 01/15/22 16:15 IMPRESSION: No demonstrated acute or significant process of the brain. Electronically Signed: Marcellsu Cohen MD at 16:50 EST , EKG Initial EKG: Attestation: I personally reviewed and interpreted this EKG as follows: Comments: Sinus rate of 105, no ST or T wave changes. QTc 430. Discharge Plan Dx/Rx/DC Orders Clinical Impression: Pneumonia, KERRY (acute kidney injury), Acute hyponatremia, CHI (closed head injury), Contusion of knee, right Disposition Disposition: Acute Care Hospital [facility] Discharge Date/Time: 01/15/22 19:02
[2022-01-15] MEDS: Ipratropium/Albuterol Sulfate 3 ML AMPUL.NEB INHALATION ×2 (15:42→20:15)
[2022-01-15 16:00] LABS: Absolute Lymphocyte Count 2.36 X10^3/uL (0.83-4.51); Basophil# 0.08 X10^3/uL; Basophil% 0.6 % (0-1); Eosinophil# 0.11 X10^3/uL; Eosinophils% 0.8 % (0-5); Hematocrit 39.4 % (37-47); Hemoglobin 12.4 g/dL (12.0-15.0); Lymphocyte # 2.36 X10^3/ul (0.83-4.51); Lymphocyte % 16.4 % (19-41); Mean Corp Hgb Conc 31.5 g/dL (32-36); Mean Corpuscular Hgb 30.3 pg (27.0-32.0); Mean Corpuscular Volume 96.3 fL (81-99); Mean Platelet Vol. 10.3 fl (6.2-12.0); Monocyte# 0.75 X10^3/uL; Monocyte% 5.2 % (0-10); NRBC Flagged by Analyzer 0 % (0-5); Neutrophil # 11.01 X10^3/uL (2.7-7.7); Neutrophil % 76.4 % (47-70); Platelet Count 268 K/mm3 (150-450); RBC Distribution Width CV 13.8 % (11.6-14.6); RBC Distribution Width SD 49.1 fl (35.1-43.9); Red Blood Count 4.09 M/mm3 (4.2-5.4); White Blood Count 14.4 K/mm3 (4.4-11.0)
--- NOTE | 2022-01-15 16:15 | CT_ITS ---
STUDY: CT BRAIN WITHOUT CONTRAST REASON FOR EXAM: Female, 46 years old. Head injury RADIATION DOSAGE (If Supplied By Facility): CTDIvol = ( 44.99 ) mGy, DLP = ( 863.60 ) mGycm TECHNIQUE: Transaxial CT imaging of the brain was performed without administration of intravenous contrast material. Individualized dose optimization techniques were used for this CT. COMPARISON: Head CT dated August 20, 2020 FINDINGS: No visualized skull fracture or hemorrhagic contusions of the brain parenchyma. Normal soft tissue structures. Normal calvarium. Normal size ventricles and extra-axial spaces for the patient''s age. Normal white matter tracts of the cerebral hemispheres. Normal basal ganglia and thalami. Normal brainstem. Normal cerebellum. There is no intracranial hemorrhage. There are no findings of an acute ischemic infarction. Normal visualized paranasal sinuses. CT/Brain/Head without Contrast IMPRESSION: No demonstrated acute or significant process of the brain. Electronically Signed: Marcellus Cohen MD at 16:50 EST ,
[2022-01-15 16:17] LABS: ALB/GLOB Ratio 0.7 RATIO (0.9-2.4); AST(SGOT) 20 U/L (15-37); Alanine Aminotransfer ALT/SGPT 25 U/L (13-56); Albumin, Serum 3.1 g/dL (3.2-5.0); Alkaline Phosphatase 85 U/L (45-117); Anion Gap 4 (5-15); BUN 34 mg/dL (7-18); BUN/Creat Ratio 26.2 RATIO (10-20); Calcium,Total 8.6 mg/dL (8.5-10.1); Chloride 97 mmol/L (98-107); EST Glomerular Filtration Rate 47 mL/min (>60); Est Glom Filt Rate - Afr Amer 57 mL/min (>60); Estimated Creatinine Clearance 47.69 ml/min; Globulin 4.4 g/dL (2.2-4.2); Glucose 267 mg/dL (74-106); Potassium 4.7 mmol/L (3.5-5.1); Protein, Total 7.5 g/dL (6.4-8.2); Sodium Level 130 mmol/L (136-145); Troponin-I HS 25 pg/mL (3.0-54.0)
--- NOTE | 2022-01-15 17:31 | PCM.HP.STD ---
HPI - General General Date of Admission: 01/15/22 Date of Service: 01/15/22 HPI Narrative MACARIO OVERTON, is a 46 F with multiple comorbidities came to ER with progressive worsening of shortness of breath for 2 weeks. Patient has dyspnea at rest for last 1 week. Patient also with progressive leg swelling ongoing for 2 to 3 weeks. She has history of restrictive lung disease and obstructive sleep apnea/obesity hypoventilation syndrome and is on BiPAP at home. She is chronically on 2 L of oxygen at rest increased to 4 L on exertion. Denies chest pain/pressure. Patient also has wheezing. Patient reports mild cough with whitish sputum but no fever. Patient has significant wheezing. Patient follows Dr. Dumont. She was last time admitted for acute on chronic hypoxic respiratory failure due to viral bronchitis in July 2021. Today, she fell down on her back/buttock and hit her head. No loss of consciousness/syncope she also has been dropping things for last 2 days with bilateral hand weakness but no paresthesia. She had extensive imaging including CT head and C-spine done in ED which did not show any acute change. In the ED, patient very short of breath and wheezing, respiratory rate 24 to 28/min, pulse ox 88% on 5 L of oxygen increased to 8 L, 92%. ABG and BiPAP ordered. Patient is further admitted in PCU. Labs and imaging reviewed and mentioned in assessment and plan. [facility] Medical History Abscess Abscess of vulva KERRY (acute kidney injury) Anxiety BiPAP (biphasic positive airway pressure) dependence Chronic diastolic (congestive) heart failure Chronic respiratory failure with hypoxia COPD (chronic obstructive pulmonary disease) Depression Diabetes Dyspnea on exertion Essential hypertension GERD (gastroesophageal reflux disease) Hidradenitis History of left heart catheterization (LHC) (~01/05/19) History of MRSA infection Hyperglycemia due to type 2 diabetes mellitus Hyperlipidemia Hypertension Morbid obesity Necrotizing soft tissue infection Non-healing open wound of left groin NSTEMI (non-ST elevated myocardial infarction) 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 Old myocardial infarction On home oxygen therapy Open wound of vulva with complication Opiate overdose Pulmonary embolism Respiratory failure with hypoxia Restrictive lung disease secondary to obesity Sleep apnea Smoker Soft tissue abscess of inguinal region Tobacco abuse Type 2 diabetes mellitus Home Medications [id number]-calcium-mins 1 ea PO DAILY 03/26/17 [History Last Taken 01/15/22] gabapentin 900 mg PO BID 05/29/17 [History Last Taken 01/15/22] omeprazole 40 mg PO DAILY 12/15/18 [History Last Taken 01/15/22] loratadine 10 mg tablet 10 mg PO DAILY PRN tab 03/01/20 [History Last Taken 01/15/22] apixaban 5 mg PO BID 08/20/20 [History Last Taken 01/15/22] atorvastatin 40 mg PO QHS 08/20/20 [History Last Taken 01/15/22] diltiazem HCl 120 mg PO DAILY 08/20/20 [History Last Taken 01/15/22] insulin lispro 100 unit/mL subcutaneous pen 42 unit SUBCUT TIDAC ml 03/26/21 [History Last Taken 01/15/22] ipratropium 0.5 mg-albuterol 3 mg (2.5 mg base)/3 mL nebulization soln 3 ml INHALATION Q4H PRN ml 03/26/21 [History Last Taken 01/15/22] lisinopril 10 mg tablet 10 mg PO DAILY tablet 03/26/21 [History Last Taken 01/15/22] metformin 500 mg tablet,extended release 24 hr 2,000 mg PO DAILY tablet 03/26/21 [History Last Taken 01/15/22] metoprolol succinate 25 mg tablet,extended release 24 hr 25 mg PO DAILY tablet 03/26/21 [History Last Taken 01/15/22] potassium chloride 20 mEq tablet,extended release 20 meq PO BID #60 tab 08/02/21 [Rx Last Taken 01/15/22] furosemide 40 mg tablet 80 mg PO BID tab 08/20/21 [History Last Taken 01/15/22] cholecalciferol (vitamin D3) 1,250 mcg PO WE 01/15/22 [History Last Taken 01/09/22] dulaglutide [Trulicity] 4.5 mg SUBCUT WE 01/15/22 [History Last Taken 01/09/22] hydrochlorothiazide 12.5 mg PO DAILY 01/15/22 [History Last Taken 01/15/22] insulin degludec [Tresiba FlexTouch U-200] 100 unit SUBCUT BID 01/15/22 [History Last Taken 01/15/22] Allergy/AdvReac Type Severity Reaction Status Date / Time cyclobenzaprine HCl Allergy Hives Verified 01/15/22 15:03 [From Flexeril] venlafaxine [From Effexor] AdvReac Severe unknown Verified 01/15/22 15:03 Family History Father CVA (cerebral vascular accident) Heart disease Diabetes Mother Thyroid disorder Surgical History H/O arthroscopic knee surgery History of delivery History of cholecystectomy Social History Smoking Status: Current every day smoker tobacco type: cigarettes how long ago did patient quit smokin PPD smoker second hand exposure: Yes alcohol intake: never substance use type: does not use caffeine: Yes Type: carbonated beverages Number of servings: 1 and coffee Number of servings: 1 ROS ROS Narrative Constitutional: Reports fatigue and weakness, denies fever or chills HEENT: Reports systems reviewed and no addt'l complaints, except as documented Respiratory/Chest: Denies chest pain/pressure. Dyspnea at rest. Gastrointestinal: Denies coffee ground emesis, hematemesis or vomiting Genitourinary: Denies burning urination or new urinary tract symptoms Musculoskeletal: Fall. Range of motion restricted. Morbid obesity. Limited mobility Neurologic: Denies seizure-like activity skin: No ulcer. No rash Endocrinology: Reports systems reviewed and no addt'l complaints, except as documented Hematologic/Lymphatic: Reports systems reviewed and no addt'l complaints, except as documented Rest 14 ROS are somewhat limited as patient very short of breath and wheezing. Rest as mentioned in HPI Vital Signs Vital Signs Vital Signs: 01/15/22 15:04 01/15/22 15:06 01/15/22 15:24 Temperature 97.6 F L Temperature Source Temporal Pulse Rate 110 H Respiratory Rate 23 H Respiratory Effort Short of Breath Respiratory Depth Shallow Respiratory Pattern Tachypnea Blood Pressure 129/100 H Blood Pressure Mean 109 Pulse Ox 69 93 Oxygen Delivery Method Room Air Nasal Cannula Oxygen Flow Rate (L/min) 4 01/15/22 15:39 01/15/22 15:42 01/15/22 16:28 Temperature 98.2 F Temperature Source Temporal Pulse Rate 105 H 105 H 107 H Respiratory Rate 20 H 25 H 20 H Respiratory Effort Respiratory Depth Respiratory Pattern Tachypnea Blood Pressure 123/84 H 119/100 H Blood Pressure Mean 97 106 Pulse Ox 95 96 Oxygen Delivery Method Nasal Cannula Nasal Cannula Oxygen Flow Rate (L/min) 4 4 Weight Weight: 380 lb Body Mass Index (BMI) 65.2 Physical Exam Narrative General: Alert, Oriented x3, Cooperative, dyspnea at rest. Morbid obesity BMI 64.8 kg/m? HEENT: Atraumatic, PERRLA, EOMI, Normocephalic Oral: No Gingival or Mucosal Lesions/ Ulcerations Neck: Supple, No JVD, Negative Carotid Bruits Lungs: Air entry severely diminished bilaterally. Bilateral wheezing. Tachypnea and severe hypoxia. Cardiovascular: Mild sinus tachycardia, Normal S1, Normal S2, No murmurs Abdomen: Bowel Sounds Present, Soft, Non Tender, Non-Distended : No urine retention. No renal angle tenderness. No suprapubic tenderness. Extremities: Bilateral pitting leg 2+ edema, Capillary Refill Less than 3 Seconds Skin: No rashes, No breakdown Musculoskeletal: No tenderness over C-spine/lumbar spine. ROM restricted mainly in hip and knee joints, chronic arthritis. Neurological: Cranial nerves II-XII grossly intact, DTR 2+/4. Chronic weakness of lower extremity at major joints mostly due to arthritis and obesity Psych/Mental Status: Affect. Results Lab / Micro Data Result Diagrams: 01/15/22 15:20 01/15/22 15:20 Labs: Laboratory Results - last 24 hr 01/15/22 15:20: WBC 14.4 H, RBC 4.09 L, Hgb 12.4, Hct 39.4, MCV 96.3, MCH 30.3, MCHC 31.5 L, RDW Std Deviation 49.1 H, RDW Coeff of Darrion 13.8, Plt Count 268, MPV 10.3, Immature Gran % (Auto) 0.600, Neut % (Auto) 76.4 H, Lymph % (Auto) 16.4 L, [place] % (Auto) 5.2, Eos % (Auto) 0.8, Baso % (Auto) 0.6, Absolute Neuts (auto) 11.0 H, Absolute Lymphs (auto) 2.36, Nucleated RBC % 0 01/15/22 15:20: Sodium 130 L, Potassium 4.7, Chloride 97 L, Carbon Dioxide 29.0, Anion Gap 4 L, BUN 34 H, Creatinine 1.30 H, Estim Creat Clear Calc 47.69, Est GFR (MDRD) Af Amer 57 L, Est GFR (MDRD) Non-Af 47 L, BUN/Creatinine Ratio 26.2 H, Glucose 267 H, Calcium 8.6, Total Bilirubin 0.40, AST 20, ALT 25, Alkaline Phosphatase 85, Troponin I High Sens 25, Total Protein 7.5, Albumin 3.1 L, Globulin 4.4 H, Albumin/Globulin Ratio 0.7 L Micro: Microbiology 01/15/22 15:33 Nasal Secretion SARS-CoV-2 Antigen (Rapid) - Final Radiology Impression Cervical Spine CT 01/15/22 15:28 IMPRESSION: 1. Straightening of the cervical lordosis. 2. Moderate consolidation in the right upper lobe Electronically Signed: Marcellus Cohen MD at 16:46 EST , Chest X-Ray 01/15/22 15:28 Knee X-Ray 01/15/22 15:28 IMPRESSION: Degenerative arthrosis. Electronically Signed: Marcellus Cohen MD at 16:43 EST , Brain CT 01/15/22 16:15 IMPRESSION: No demonstrated acute or significant process of the brain. Electronically Signed: Marcellus Cohen MD at 16:50 EST , Assessment & Plan Assessment/Plan (1) Acute on chronic respiratory failure with hypoxia and hypercapnia: PLAN: 1. Acute on chronic hypoxic and hypercarbic respiratory failure most likely due to acute exacerbation of chronic HFpEF, OHS/LOGAN and right upper lobe pneumonia. Patient is being admitted in PCU. ABG shows pH 7.2 6/66 on 10 L of oxygen. Discussed with the respiratory therapist. Patient got DuoNeb nebulization. IV Solu-Medrol 40 g every 8 hourly and start on BiPAP stat. Keep pulse ox about 90%. Right. SARS-CoV-2 negative and patient had [employer] vaccine in July 2021. Pneumonia shot in 2010. Chest x-ray individually reviewed and is underventilated possible due to morbid obesity. Right lung is more hazy than left lung. I think patient has pneumonia and interstitial edema. CT C-spine shows moderate consolidation in the right upper lobe. Pneumonia work-up ordered. Patient empirically on IV ceftriaxone and Zithromax. Blood cultures x2 ordered. 2. Acute on chronic heart failure with preserved ejection fraction-BNP normal which may be falsely low due to morbid obesity. Patient has clinical signs and symptoms of heart failure exacerbation including leg swelling, worsening of shortness of breath to dyspnea at rest and chest x-ray findings. Lasix 40 mg IV twice daily first dose now. Heart failure core measures. Echocardiogram January 2020 demonstrated an EF of 55%. 4. LOGAN/obesity hypoventilation-on BiPAP nightly. Patient follows Dr. Dumont.. 5. Type 2 diabetes mellitus, on controlled hyperglycemia: Glucose in [facility] is 267 poorly controlled. Last hemoglobin A1c August 2020 11.2%. A1c ordered for tomorrow a.m. Accu-Chek before meals and at bedtime coverage Humalog sliding scale. 6. History of PE-on Eliquis 5 g twice daily. 7. Mild KERRY probably heart failure exacerbation/prerenal: Patient BUN/creatinine elevated 34/1.3 from baseline 24/0.93. Monitor kidney function electrolytes. Hold HCTZ and lisinopril. Cardizem and metoprolol continued with holding parameters. 8. Hyperlipidemia-continue statin. 9. Depression-on fluoxetine. 10. GERD-continue PPI. 11. Morbid obesity-BMI 64.8 kg/m?. She gained about 19 pounds since August 2021 12. Tobacco dependence- encouraged cessation. On nicotine patch Living will/advanced directive/end of life care: Patient does not have living will or advanced directive. 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 After discussion of benefits/risks procedures involved with full code, DNR CC arrest and DNR CC, the patient opted for full code. Patient does want artificial life support including intubation, tube feed, ventilator and/chest compression, central venous catheter, vasopressor and DC shock if needed Total time spent in [id number] encounter in discussion of advanced directive 16 minutes. Charges/Coding Visit Charges Inpatient E&M: 38631 Init Hosp L3
[2022-01-15 17:49] LABS: Lactic Acid 1.7 mmol/L (0.4-1.9)
[2022-01-15] MEDS: Ceftriaxone 1 GM/50 ML BAG IV (18:03)
[2022-01-15 18:26] LABS: BNP,B-Type NATRIURETIC PEPTIDE 22.1 pg/mL (0-100)
[2022-01-15 20:56] LABS: Base Excess 7 mmol/L (-2 to +2); Bicarbonate 33.8 mmol/L (22-26); Blood Gas Specimen Type ART; O2 Delivery Device HFNC; PO2 66 mmHG (75-100); SITE R Brach; SO2 88 % (95-99); Total Carbon Dioxide 36 mmol/L; pCO2 75.1 mmHg (35-45); pH 7.26 (7.35-7.45)
[2022-01-15] MEDS: 0.9% Saline Lock 10 ML Syringe IV (21:10)
[2022-01-15] MEDS: Furosemide 40 MG/4 ML Vial IV (21:14)
[2022-01-15 22:10] LABS: Troponin-I HS 26 pg/mL (3.0-54.0)
[2022-01-15] MEDS: Senna/Docusate Sodium 1 Tablet 2 TABLET PO (23:28)
[2022-01-15] MEDS: Gabapentin 300 MG Capsule 900 MG PO (23:28)
[2022-01-15] MEDS: APIXABAN 5 MG TABLET PO (23:29)
[2022-01-15] MEDS: guaiFENesin 1,200 MG Tablet 1200 MG PO (23:29)
[2022-01-15] MEDS: dilTIAZem CD 120 MG Capsule PO (23:32)
[2022-01-15] MEDS: Atorvastatin Calcium 40 MG Tablet PO (23:33)
[2022-01-15] MEDS: Insulin Lispro 100 UNIT/ML INSULN.PEN SC (23:34)
[2022-01-15 23:41] LABS: Bedside Glucose 295 mg/dL (70-110)
[2022-01-16] VITALS (20 sets, daily range): BP systolic 130–157; BP diastolic 65–90; PULSE 83–98; RESP 14–24; TEMP 36.5–37.3; O2SAT 93–98
[2022-01-16] MEDS: Ipratropium/Albuterol Sulfate 3 ML AMPUL.NEB INHALATION ×7 (00:35→22:31)
[2022-01-16 05:19] LABS: Absolute Lymphocyte Count 0.86 X10^3/uL (0.83-4.51); Basophil# 0.05 X10^3/uL; Basophil% 0.4 % (0-1); Eosinophil# 0.01 X10^3/uL; Eosinophils% 0.1 % (0-5); Hematocrit 38.9 % (37-47); Hemoglobin 12.2 g/dL (12.0-15.0); Lymphocyte # 0.86 X10^3/ul (0.83-4.51); Lymphocyte % 6.5 % (19-41); Mean Corp Hgb Conc 31.4 g/dL (32-36); Mean Corpuscular Hgb 29.8 pg (27.0-32.0); Mean Corpuscular Volume 94.9 fL (81-99); Mean Platelet Vol. 10.4 fl (6.2-12.0); Monocyte# 0.33 X10^3/uL; Monocyte% 2.5 % (0-10); NRBC Flagged by Analyzer 0 % (0-5); Neutrophil # 11.99 X10^3/uL (2.7-7.7); Neutrophil % 89.8 % (47-70); Platelet Count 257 K/mm3 (150-450); RBC Distribution Width CV 13.6 % (11.6-14.6); RBC Distribution Width SD 47.7 fl (35.1-43.9); White Blood Count 13.3 K/mm3 (4.4-11.0)
[2022-01-16 06:00] LABS: Anion Gap 5 (5-15); BUN 31 mg/dL (7-18); BUN/Creat Ratio 31.7 RATIO (10-20); Calcium,Total 8.8 mg/dL (8.5-10.1); Chloride 97 mmol/L (98-107); Cholesterol 116 mg/dL (200); Creatinine, Serum 0.98 mg/dL (0.55-1.02); EST Glomerular Filtration Rate 65 mL/min (>60); Est Glom Filt Rate - Afr Amer 79 mL/min (>60); Estimated Creatinine Clearance 65.92 ml/min; Glucose 307 mg/dL (74-106); High Density Lipoprotein 41 mg/dL; Potassium 5.3 mmol/L (3.5-5.1); Sodium Level 132 mmol/L (136-145); Triglycerides 95 mg/dL; Very Low Density Lipoprotein 19 mg/dL (5-40)
[2022-01-16] MEDS: Nystatin Powder 15gm Bottle 1 APPLIC TOPICAL ×3 (06:51→22:41)
[2022-01-16 07:06] LABS: Bedside Glucose 311 mg/dL (70-110)
[2022-01-16 08:22] LABS: Hemoglobin A1c 9.5 % (3.8-5.6)
[2022-01-16] MEDS: Insulin Lispro 100 UNIT/ML INSULN.PEN 36 UNIT SC ×3 (08:32→17:11)
[2022-01-16] MEDS: Insulin Lispro 100 UNIT/ML INSULN.PEN SC ×3 (08:33→17:12)
[2022-01-16] MEDS: Multivitamins,Ther W-Minerals Tablet 1 TABLET PO (08:34)
[2022-01-16] MEDS: Metoprolol(XL)Succ 25 MG Tablet PO (08:34)
[2022-01-16] MEDS: guaiFENesin 1,200 MG Tablet 1200 MG PO ×2 (08:34→22:39)
[2022-01-16] MEDS: Azithromycin 250 MG Tablet 500 MG PO (08:34)
[2022-01-16] MEDS: Gabapentin 300 MG Capsule 900 MG PO ×2 (08:35→22:39)
[2022-01-16] MEDS: dilTIAZem CD 120 MG Capsule PO (08:35)
[2022-01-16] MEDS: APIXABAN 5 MG TABLET PO ×2 (08:35→22:40)
[2022-01-16] MEDS: Senna/Docusate Sodium 1 Tablet 2 TABLET PO ×2 (08:35→22:40)
[2022-01-16] MEDS: Pantoprazole Sodium 40 MG Tablet PO (08:35)
[2022-01-16] MEDS: Glucerna Shake 120 ML LIQUID PO (08:39)
[2022-01-16 08:49] LABS: M R Staph aureus DNA By PCR Negative (Negative); Probe Check PASS; Specimen Processing Control PASS
[2022-01-16] MEDS: Furosemide 40 MG/4 ML Vial IV ×2 (09:16→17:38)
[2022-01-16] MEDS: 0.9% Saline Lock 10 ML Syringe IV ×4 (09:16→23:17)
[2022-01-16] MEDS: oxyCODONE 5 MG Tablet PO ×3 (10:00→18:50)
[2022-01-16] MEDS: Acetaminophen 325 MG Tablet 650 MG PO ×2 (10:00→17:12)
[2022-01-16 11:31] LABS: Bedside Glucose 468 mg/dL (70-110)
--- NOTE | 2022-01-16 11:40 | CASEMGMT ---
RN CM HUMAN INTELLIGENCE CM to room to meet with patient for initial transition planning/care coordination assessment. LORENZO GARCÍA introduced self and role at [facility]. Pt voices understanding and consents to assessment at this time. Pt resting in bed in no distress at this time. Pt is A/O at this time and answers all questions appropriately. Care providers, pharmacy, and demographics verified/updated at this time. PCP: Dr Oreilly Specialists: Dr Dumont, pulm; Dr Ashley, cardio. Also sees a bariatric surgeon @ [facility] Preferred Pharmacy: [facility] Retail Insurance: MCR A/B, [employer] Prescription Benefit: Yes Living Will/HPOA: Pt states does not have LW/HPOA and declines AD info. LNOK: Naveed Gordon, daughter; Remedios Wallace, mother Living Arrangements: Pt states lives with niece in mobile home with 5 steps in and states no concerns at home. Pt states is independent with ADL's. Daughter, Naveed, checks in on her daily. Transportation: Pt states daughter/niece drive and state no transportation concerns. DME: Pt states has the following DME: WW(does not use), nebulizer, NIV, and O2 thru [facility]. Pt states she uses 2 l/m @ rest and 4 l/m w/exertion. Pt has a concentrator and states has portable O2 tank w/her @ [facility]. Call placed to [facility] and spoke w/Giselle. She states their current orders are for 5l/m @ HS, bleed-in thru NIV. She states last order for 2l/m @ rest is from 01/2021 and requests pt have new/updated O2 script faxed to them @ discharge. She also states pt had just recently contacted them stating she broke the power cord for the nebulizer and needs a new one. Giselle states they attempted to contact pt yesterday but was unable to reach her. Per Giselle, they can supply pt w/a new power cord once pt returns home. Pt denies need for further DME. HHC/SNF: Pt states no hx of HHC or SNF. Pt denies need for HHC. Pt states no concerns with going home at time of discharge. Pt is on disability. Pt states she has decreased her smoking to 3-4 cigarettes/day and plans to quit again once returning home. She denies drinking ETOH. Pt states no further concerns/needs. CM to follow for any further discharge planning/needs. Advised pt to ask for CM if any further questions/concerns/needs arise, voices understanding. Plan: Home. Pt will need Home O2 testing completed prior to discharge and new O2 script faxed to [facility]. Abena BSN RN CM
--- NOTE | 2022-01-16 15:31 | RAD_ITS ---
STUDY: X-RAY - PELVIS AND RIGHT HIP REASON FOR EXAM: Female, 46 years old. pain TECHNIQUE: XR Hip Unilateral with Pelvis when performed; 2-3 Views COMPARISON: None. FINDINGS: There is a non-specific bowel gas pattern. Normal visualized soft tissue structures. Normal bilateral iliac wings, sacroiliac joints and visualized sacrum. Normal bilateral superior and inferior pubic rami. Normal pubic symphysis. Normal bilateral ischial tuberosities. Normal visualized femoral head. Normal acetabulum. Normal hip joint. RAD/HIP, UNI W/ Pelvis 2-3 Views IMPRESSION: No acute findings. Electronically Signed: George Leiva MD at 17:39 EST ,
--- NOTE | 2022-01-16 15:31 | RAD_ITS ---
STUDY: X-RAY - LUMBAR SPINE REASON FOR EXAM: Female, 46 years old. PAIN TECHNIQUE: 3 view(s) of the lumbar spine were obtained. COMPARISON: 07/12/2014 FINDINGS: Normal lumbar lordosis. There is no substantial scoliosis. There is a normal alignment of the vertebrae. Normal vertebral bodies and endplates. Normal disc space heights. The soft tissue structures are unremarkable. RAD/Lumbar Spine 2 or 3 Views IMPRESSION: Normal x-ray examination of the lumbar spine. Electronically Signed: Obed Young MD at 17:17 EST ,
--- NOTE | 2022-01-16 16:22 | PN.HOSP_ITS ---
Subjective Subjective Patient states that she has had an increased cough lately with some sputum production. She reports that she sent a sputum earlier today. She also admits that she has been noncompliant with wearing her BiPAP at home and feels about likely septated her hypercapnia. She complains of right leg pain from her hip to her knee. X-rays were done in the emergency department that show arthritis but were otherwise normal. Patient admits that she has restarted smoking as of recently but no she needs to quit. Objective Data Objective Data Vital Signs: Vital Signs Temp Pulse Resp BP Pulse Ox 98.3 F 93 20 H 132/78 H 94 01/16/22 10:16 01/16/22 15:00 01/16/22 14:47 01/16/22 10:16 01/16/22 10:16 Oxygen Flow Rate (L/min) 4 Oxygen Delivery Method Nasal Cannula Weight: 176.9 kg Body Mass Index (BMI) 64.7 Intake & Output: Intake and Output for Last 24 Hours 01/14/22 01/15/22 01/16/22 23:59 23:59 23:59 Intake Total 305 / 305 250 / 250 Output Total 2700 / 2700 Balance 305 / -695 -2450 / -2450 Lab / Micro Data Result Diagrams: 01/16/22 03:55 01/16/22 03:55 Labs: Laboratory Results - last 24 hr 01/15/22 15:20: B-Natriuretic Peptide 22.1 01/15/22 17:00: Lactic Acid 1.7 01/15/22 21:34: Troponin I High Sens 26 01/15/22 23:14: POC Glucose 295 H 01/16/22 01:45: MRSA (PCR) Negative 01/16/22 03:55: WBC 13.3 H, RBC 4.10 L, Hgb 12.2, Hct 38.9, MCV 94.9, MCH 29.8, MCHC 31.4 L, RDW Std Deviation 47.7 H, RDW Coeff of Darrion 13.6, Plt Count 257, MPV 10.4, Immature Gran % (Auto) 0.700, Neut % (Auto) 89.8 H, Lymph % (Auto) 6.5 L, [place]imer % (Auto) 2.5, Eos % (Auto) 0.1, Baso % (Auto) 0.4, Absolute Neuts (auto) 12.0 H, Absolute Lymphs (auto) 0.86, Nucleated RBC % 0 01/16/22 03:55: Sodium 132 L, Potassium 5.3 H, Chloride 97 L, Carbon Dioxide 30.0, Anion Gap 5, BUN 31 H, Creatinine 0.98, Estim Creat Clear Calc 65.92, Est GFR (MDRD) Af Amer 79, Est GFR (MDRD) Non-Af 65, BUN/Creatinine Ratio 31.7 H, Glucose 307 H, Calcium 8.8, Triglycerides 95, Cholesterol 116, LDL Cholesterol 56, VLDL Cholesterol 19, HDL Cholesterol 41 01/16/22 03:55: Hemoglobin A1c 9.5 H 01/16/22 06:54: POC Glucose 311 H 01/16/22 11:25: POC Glucose 468 H* Micro: Microbiology 01/16/22 05:30 Sputum, Expectorated/Coughed Gram Stain - Final 01/15/22 17:00 Blood Culture (Wb) - Anticubital Right Blood Culture - Preliminary 01/15/22 23:50 Urine, Clean Catch Legionella Antigen - Final 01/15/22 23:50 Urine, Clean Catch Streptococcus pneumoniae Antigen (M - Final 01/15/22 20:10 Mucosa - Nasopharyngeal Influenza Types A,B Direct FA (VIKTOR) - Final 01/15/22 15:33 Nasal Secretion SARS-CoV-2 Antigen (Rapid) - Final ABG Data ABG results: ABG 01/15/22 20:50 Specimen Type ART Sample Site R Brach pH 7.26 L Bicarbonate Actual 33.8 H Total CO2 36 Base Excess 7 H O2 Saturation 88 L ABG pCO2 75.1 H* ABG pO2 66 L O2 Delivery Device HFNC Liter Flow 10.0 Crit Call To/Read Back Yes Blood Gas Notified Whom Dr Chu Radiography Diagnostic Testing: Radiology Impression Cervical Spine CT 01/15/22 15:28 IMPRESSION: 1. Straightening of the cervical lordosis. 2. Moderate consolidation in the right upper lobe Electronically Signed: Marcellus Cohen MD at 16:46 EST Reading Location ID and State: [facility] / [place] , Service support , Chest X-Ray 01/15/22 15:28 Knee X-Ray 01/15/22 15:28 IMPRESSION: Degenerative arthrosis. Electronically Signed: Marcellus Cohen MD at 16:43 EST , Brain CT 01/15/22 16:15 IMPRESSION: No demonstrated acute or significant process of the brain. Electronically Signed: Marcellus Cohen MD at 16:50 EST , Physical Exam Const alert, oriented x3, no apparent distress and well nourished Constitutional Narrative: Super morbidly obese middle-aged white female sitting up in bed, nursing at bedside, intermittent cough that is somewhat rhonchorous sounding and slightly productive, on her baseline oxygen of 2 L Exam Limitations: no limitations Nutritional Appearance: morbidly obese HEENT head/scalp atraumatic and moist oral mucous membranes HEENT Narrative: Mallampati is 4, dentition is fair, no thrush Head and Scalp: normocephalic Resp normal respiratory effort, no retractions and no use of accessory muscles Resp Narrative: Diffusely diminished with scattered end expiratory wheeze-breath sounds are distant secondary to body habitus Auscultation: wheezes; Negative for crackles, rales or rhonchi Cardio regular rate, regular rhythm, S1 normal heart sound, S2 normal heart sound, no murmurs, no rub, no gallops, no clicks and no JVD Cardio Narrative: Distant heart tones secondary to body habitus GI normal to inspection, nondistended, normoactive bowel sounds, soft to palpation, non-tender and non-distended Extremity Extremity Narrative: Bilateral lower extremity edema with skin changes consist ent with chronic venous stasis, no clubbing or cyanosis Neuro oriented x3, moves all extremities and no focal motor deficits Neuro Narrative: Bilateral lower extremity neuropathy Sensorium / Orientation: awake, alert, oriented to person, oriented to place and oriented to time Speech: speech normal Assessment & Plan Assessment/Plan (1) Acute on chronic respiratory failure with hypoxia and hypercapnia: (2) Acute hyponatremia: (3) KERRY (acute kidney injury): (4) Right leg pain: (5) Pneumonia: PLAN: Acute on chronic hypoxic and hypercapnic respiratory failure secondary to noncompliance/possible pneumonia/COPD exacerbation/diastolic heart failure -Patient states she has been noncompliant with her BiPAP at home and feels that this is contributing to her current situation -Discussed with her the importance of continued compliance because otherwise she is going to have frequent admissions related to this -Sputum cultures pending -1 of 2 blood cultures positive for gram-positive cocci in clusters--> suspect coag negative staph--> will follow cultures -Flu negative/RSV negative -Covid negative -Strep pneumo and Legionella antigens negative -Continue ceftriaxone and azithromycin at this time -X-ray looks like pneumonia but it is markedly underpenetrated -Continue diuresis as ordered -Continue fluid restriction but increase to 1800 cc daily -To new nocturnal BiPAP -She is not tolerating her 2 L of oxygen at rest her baseline is 2 at rest and 4 with ambulation -Continue I-S and Pep therapy Hyperkalemia -Suspect this is related to her acidosis -Repeat BMP in a.m. -Potassium elevation was mild at 5.3 KERRY -Resolved Acute hyponatremia -Hold hydrochlorothiazide -Trending up -Repeat BMP in a.m. -May need to substitute another antihypertensive for HCTZ Right leg pain -This has been persistent after her fall prior to admission -The x-ray done and shows no fractures -We will check hip and back given her pain is in the entire thigh region -Continue as needed Tylenol and oxycodone -Patient has Dilaudid for breakthrough -Patient is on gabapentin at baseline for neuropathy -PT/OT consultation DM-2 uncontrolled -Patient follows with outpatient endocrinology -Sugars are currently higher than baseline as she is on steroids -Would be able to wean to oral prednisone from Solu-Medrol tomorrow and this should help -Continue home insulin as ordered -Increase sliding scale to high-dose -Recommend continued outpatient follow-up -Hold home oral agents GERD -Continue Protonix History of PE -Continue Eliquis twice daily LOGAN/obesity hypoventilation syndrome -Continue BiPAP with naps and nightly -Follow-up with Dr. Dumont as an outpatient Hyperlipidemia -Continue statin Depression -Continue fluoxetine -May need to reevaluate if sodium does not improve Hypertension -Continue diltiazem -Continue Lasix -Hold hydrochlorothiazide -Continue lisinopril -Continue metoprolol DVT prophylaxis -Patient is fully anticoagulated with Eliquis CODE STATUS -Full code Charges/Coding Visit Charges Inpatient E&M: 54972 Subs Hosp L2
[2022-01-16 16:30] LABS: Bedside Glucose 497 mg/dL (70-110)
[2022-01-16 21:31] LABS: Bedside Glucose > 500 mg/dL (70-110)
[2022-01-16 22:22] LABS: Glucose 629 mg/dL (74-106)
[2022-01-16] MEDS: Atorvastatin Calcium 40 MG Tablet PO (22:40)
[2022-01-16] MEDS: Insulin Lispro 100 UNIT/ML INSULN.PEN 40 UNIT SC (22:42)
[2022-01-16 23:41] LABS: Bedside Glucose > 500 mg/dL (70-110)
[2022-01-16] MEDS: Insulin Lispro 100 UNIT/ML INSULN.PEN 30 UNIT SC (23:57)
[2022-01-17] VITALS (18 sets, daily range): BP systolic 131–159; BP diastolic 88–94; PULSE 68–95; RESP 14–22; TEMP 36.5–37.1; O2SAT 84–98
[2022-01-17 01:16] LABS: Bedside Glucose 473 mg/dL (70-110)
[2022-01-17] MEDS: Ipratropium/Albuterol Sulfate 3 ML AMPUL.NEB INHALATION ×6 (03:37→20:23)
[2022-01-17] MEDS: oxyCODONE 5 MG Tablet PO ×3 (04:18→21:11)
[2022-01-17] MEDS: Acetaminophen 325 MG Tablet 650 MG PO (04:18)
[2022-01-17 05:30] LABS: Absolute Lymphocyte Count 0.86 X10^3/uL (0.83-4.51); Absolute Neutrophil Count 12.2 X10^3/uL (2.0-7.7); Basophil# 0.05 X10^3/uL; Basophil% 0.4 % (0-1); Hematocrit 39.8 % (37-47); Hemoglobin 12.3 g/dL (12.0-15.0); Lymphocyte # 0.86 X10^3/ul (0.83-4.51); Lymphocyte % 6.3 % (19-41); Mean Corp Hgb Conc 30.9 g/dL (32-36); Mean Corpuscular Hgb 28.9 pg (27.0-32.0); Mean Corpuscular Volume 93.6 fL (81-99); Mean Platelet Vol. 10.4 fl (6.2-12.0); Monocyte# 0.52 X10^3/uL; Monocyte% 3.8 % (0-10); NRBC Flagged by Analyzer 0 % (0-5); Neutrophil # 12.17 X10^3/uL (2.7-7.7); Neutrophil % 88.8 % (47-70); Platelet Count 284 K/mm3 (150-450); RBC Distribution Width CV 13.4 % (11.6-14.6); RBC Distribution Width SD 46.1 fl (35.1-43.9); Red Blood Count 4.25 M/mm3 (4.2-5.4); White Blood Count 13.7 K/mm3 (4.4-11.0)
[2022-01-17 06:05] LABS: Anion Gap 4 (5-15); BUN 33 mg/dL (7-18); BUN/Creat Ratio 30.6 RATIO (10-20); Calcium,Total 10.1 mg/dL (8.5-10.1); Chloride 95 mmol/L (98-107); Creatinine, Serum 1.08 mg/dL (0.55-1.02); EST Glomerular Filtration Rate 58 mL/min (>60); Est Glom Filt Rate - Afr Amer 71 mL/min (>60); Estimated Creatinine Clearance 59.81 ml/min; Glucose 377 mg/dL (74-106); Potassium 4.7 mmol/L (3.5-5.1); Sodium Level 134 mmol/L (136-145)
[2022-01-17] MEDS: Nystatin Powder 15gm Bottle 1 APPLIC TOPICAL ×3 (06:23→21:12)
[2022-01-17] MEDS: 0.9% Saline Lock 10 ML Syringe IV ×2 (06:24→09:10)
[2022-01-17 06:30] LABS: Bedside Glucose 360 mg/dL (70-110)
[2022-01-17] MEDS: Insulin Lispro 100 UNIT/ML INSULN.PEN 36 UNIT SC ×3 (09:11→17:14)
[2022-01-17] MEDS: Furosemide 40 MG/4 ML Vial IV (09:11)
[2022-01-17] MEDS: Insulin Lispro 100 UNIT/ML INSULN.PEN SC ×4 (09:12→22:45)
[2022-01-17] MEDS: predniSONE 20 MG Tablet 40 MG PO (09:13)
[2022-01-17] MEDS: Pantoprazole Sodium 40 MG Tablet PO (09:13)
[2022-01-17] MEDS: APIXABAN 5 MG TABLET PO ×2 (09:13→21:11)
[2022-01-17] MEDS: guaiFENesin 1,200 MG Tablet 1200 MG PO ×2 (09:13→21:11)
[2022-01-17] MEDS: Multivitamins,Ther W-Minerals Tablet 1 TABLET PO (09:14)
[2022-01-17] MEDS: Azithromycin 250 MG Tablet 500 MG PO (09:16)
[2022-01-17] MEDS: Senna/Docusate Sodium 1 Tablet 2 TABLET PO ×2 (09:16→21:10)
[2022-01-17] MEDS: Gabapentin 300 MG Capsule 900 MG PO ×2 (09:16→21:12)
[2022-01-17] MEDS: Metoprolol(XL)Succ 25 MG Tablet PO (09:16)
[2022-01-17] MEDS: dilTIAZem CD 120 MG Capsule PO (09:16)
--- NOTE | 2022-01-17 11:20 | PCM.DC.SUM ---
Providers Date of Admission: 01/15/22 Date of Discharge: 01/18/22 Primary Care Physician: Dr. Tino Oreilly MD Reason For Visit: PNEUMONIA Diagnosis Discharge Diagnosis (1) Acute on chronic respiratory failure with hypoxia and hypercapnia: Status: Chronic Code(s): J96.21 - Acute and chronic respiratory failure with hypoxia; J96.22 - Acute and chronic respiratory failure with hypercapnia (2) Acute hyponatremia: Status: Acute Code(s): E87.1 - Hypo-osmolality and hyponatremia (3) KERRY (acute kidney injury): Status: Acute Code(s): N17.9 - Acute kidney failure, unspecified (4) Right leg pain: Status: Acute Code(s): M79.604 - Pain in right leg (5) Pneumonia: Status: Acute Code(s): J18.9 - Pneumonia, unspecified organism Medications at Discharge Home Medications [id number]-[id number]-BS-calcium-mins 1 ea PO DAILY 03/26/17 gabapentin 900 mg PO BID 05/29/17 omeprazole 40 mg PO DAILY 12/15/18 loratadine 10 mg tablet 10 mg PO DAILY PRN tab 03/01/20 apixaban 5 mg PO BID 08/20/20 atorvastatin 40 mg PO QHS 08/20/20 diltiazem HCl 120 mg PO DAILY 08/20/20 insulin lispro 100 unit/mL subcutaneous pen 42 unit SUBCUT TIDAC ml 03/26/21 ipratropium 0.5 mg-albuterol 3 mg (2.5 mg base)/3 mL nebulization soln 3 ml INHALATION Q4H PRN ml 03/26/21 lisinopril 10 mg tablet 10 mg PO DAILY tablet 03/26/21 metformin 500 mg tablet,extended release 24 hr 2,000 mg PO DAILY tablet 03/26/21 metoprolol succinate 25 mg tablet,extended release 24 hr 25 mg PO DAILY tablet 03/26/21 potassium chloride 20 mEq tablet,extended release 20 meq PO BID #60 tab 08/02/21 furosemide 40 mg tablet 80 mg PO BID tab 08/20/21 Tresiba FlexTouch U-200 100 unit SUBCUT BID 01/15/22 Trulicity 4.5 mg SUBCUT WE 01/15/22 cholecalciferol (vitamin D3) 1,250 mcg PO WE 01/15/22 prednisone 10 mg PO DAILY #30 tab 01/17/22 tramadol [Ultram] 50 mg PO Q8H PRN #10 tab 01/17/22 linezolid 600 mg PO Q12H 6 Days #12 tab 01/18/22 Hospital Course Operations None Procedures None Summary of Care Provided Minutes Spent on Discharge: 45 Hospital Course: Ms Wallace is a 46-year-old female with multiple medical comorbidities that presented to the emergency department at [facility] on 01/15/2022 with progressively worsening shortness of breath for approximately 2 weeks prior to admission. She had dyspnea at rest for about 1 week prior to admission and progressive leg swelling that had been going on for 2 to 3 weeks. She is on chronic oxygen at 2 to 4 L. On presentation she complained of wheezing with shortness of breath and a mild cough and some whitish sputum but no fever. On exam the emergency department she had significant wheezing. She fell prior to presenting to the hospital and fell and hit her back and buttock as well as her head. She had no loss of consciousness or syncope. In the emergency department she had extensive head and cervical spine imaging which did not show any acute changes. She also had imaging of her right lower extremity as she complained of persistent pain in the knee hip and back area all of which were negative for any acute bony abnormalities. Her pain with regards to her right lower extremity did improve slowly during her hospitalization. With regards to her shortness of breath she was initially very short of breath and wheezing and placed on BiPAP. After reviewing things with the patient after she was admitted she did admit to the fact that she was not persistently using her BiPAP at home on a regular basis. We did discuss the importance of continued use for this. She did voice agreement and stated she would try to use her BiPAP more with naps and nocturnally. Her respiratory issues resolved quite quickly with diuresis. She was placed on antibiotics in the form of azithromycin and ceftriaxone. Her sputum culture was negative for any growth, her strep pneumo and Legionella antigens were negative for growth, influenza a and B were negative and her COVID-19 test was negative. In the emergency department blood cultures were obtained and initially reported out as 1 of 4+ for coag negative staph however on 01/17/2022 the results changed to 3 of 4 bottles POSITIVE for mecA resistance coag negative staph. I discussed the case with Dr. Gonzalez and he recommended starting linezolid and a consult was placed to him. He evaluated the patient and recommended we continue linezolid for 6 more days. He did not feel an echocardiogram was prudent at this time. Repeat blood cultures were pending at discharge and will be followed up. Her sodium was also noted to be low on admission however she was on Lasix and hydrochlorothiazide at home. She was maintained on Lasix, however hydrochlorothiazide was discontinued upon discharge. She was discharged home with a prescription for her linezolid, oral steroids, and was offered home health care for some physical therapy given her right lower extremity issues however she declined home health care at discharge. She was discharged home on her baseline oxygen in stable condition on 01/18/2022. She was instructed to follow-up with her primary care physician in 1 to 2 weeks. Moderna booster for COVID-19 was given prior to discharge. Discharge diagnoses: Acute on chronic hypoxic and hypercapnic respiratory failure secondary to acute exacerbation of COPD and acute diastolic and right-sided heart failure-resolved Staph epi bacteremia Hyponatremia Hyperkalemia-resolved Right leg pain DM-2 uncontrolled GERD History of pulmonary embolism LOGAN Obesity hypoventilation syndrome Hyperlipidemia Depression Hypertension Physical Exam Const alert, oriented x3, no apparent distress and well nourished Constitutional Narrative: Super morbidly obese middle-aged white female sitting up in a chair at the bedside, appears comfortable General Appearance: cooperative, comfortable, well kempt and well developed Exam Limitations: no limitations Nutritional Appearance: morbidly obese HEENT normocephalic, head/scalp atraumatic, hearing grossly normal bilaterally and moist oral mucous membranes HEENT Narrative: Mallampati is 4, no thrush Eyes PERRL, EOMs intact bilaterally and conjunctivae normal Eyes Narrative: No scleral icterus Neck no lymphadenopathy, supple, no JVD and no carotid bruits Resp normal respiratory effort, no retractions and no use of accessory muscles Resp Narrative: Diffusely diminished-breath sounds are distant secondary to body habitus Auscultation: wheezes; Negative for crackles, rales or rhonchi Cardio regular rate, regular rhythm, S1 normal heart sound, S2 normal heart sound, no murmurs, no rub, no gallops, no clicks and no JVD Cardio Narrative: Distant heart tones secondary to body habitus GI normal to inspection, nondistended, normoactive bowel sounds, soft to palpation, non-tender and non-distended GI Narrative: Significant candidiasis under pannus Extremity Extremity Narrative: Bilateral lower extremity edema with skin changes consistent with chronic venous stasis, no clubbing or cyanosis, few healing sores on pretibial area of bilateral lower extremities with no signs of acute infection Skin skin turgor normal and no jaundice Skin Narrative: Lesions as noted in extremity and abdomen Neuro oriented x3, CN's II-XII intact bilaterally, moves all extremities and no focal motor deficits Neuro Narrative: Bilateral lower extremity neuropathy Sensorium / Orientation: awake and alert Speech: speech normal Psych affect normal Weight / BMI Weight Weight: 176.5 kg Body Mass Index (BMI) 64.7 ABG / Lab / Microbiology Data Result Diagrams: 01/18/22 04:50 01/18/22 04:50 Laboratory: Laboratory Results - last 24 hr 01/16/22 11:25: POC Glucose 468 H* 01/16/22 16:26: POC Glucose 497 H* 01/16/22 21:20: POC Glucose > 500 H* 01/16/22 21:40: Glucose 629 H* 01/16/22 23:27: POC Glucose > 500 H* 01/17/22 01:10: POC Glucose 473 H* 01/17/22 04:19: WBC 13.7 H, RBC 4.25, Hgb 12.3, Hct 39.8, MCV 93.6, MCH 28.9, MCHC 30.9 L, RDW Std Deviation 46.1 H, RDW Coeff of Darrion 13.4, Plt Count 284, MPV 10.4, Immature Gran % (Auto) 0.700, Neut % (Auto) 88.8 H, Lymph % (Auto) 6.3 L, Candler % (Auto) 3.8, Eos % (Auto) 0.0, Baso % (Auto) 0.4, Absolute Neuts (auto) 12.2 H, Absolute Lymphs (auto) 0.86, Nucleated RBC % 0 01/17/22 04:19: Sodium 134 L, Potassium 4.7, Chloride 95 L, Carbon Dioxide 35.0 H, Anion Gap 4 L, BUN 33 H, Creatinine 1.08 H, Estim Creat Clear Calc 59.81, Est GFR (MDRD) Af Amer 71, Est GFR (MDRD) Non-Af 58 L, BUN/Creatinine Ratio 30.6 H, Glucose 377 H, Calcium 10.1 01/17/22 06:28: POC Glucose 360 H Microbiology: Microbiology 01/15/22 17:10 Blood Culture (Wb) - Anticubital Right Blood Culture - Preliminary Coag Negative Staph 01/15/22 17:00 Blood Culture (Wb) - Anticubital Right Bacteria Detection (PCR) - Final Staphylococcus epidermidis mecA Resistance Marker 01/15/22 17:00 Blood Culture (Wb) - Anticubital Right Blood Culture - Preliminary Staphylococcus epidermidis 01/16/22 05:30 Sputum, Expectorated/Coughed Gram Stain - Final 01/15/22 23:50 Urine, Clean Catch Legionella Antigen - Final 01/15/22 23:50 Urine, Clean Catch Streptococcus pneumoniae Antigen (M - Final 01/15/22 20:10 Mucosa - Nasopharyngeal Influenza Types A,B Direct FA (VIKTOR) - Final 01/15/22 15:33 Nasal Secretion SARS-CoV-2 Antigen (Rapid) - Final Radiography Diagnostic Testing: Radiology Impression Hip/Pelvis X-Ray 01/16/22 15:31 IMPRESSION: No acute findings. Electronically Signed: George Leiva MD at 17:39 EST , Lumbar Spine X-Ray 01/16/22 15:31 IMPRESSION: Normal x-ray examination of the lumbar spine. Electronically Signed: Obed Young MD at 17:17 EST , D/C Instructions Discharge Diet: Low fat / Low cholesterol, 1600 Calorie Control Diet, 8 Cup Fluid Restriction and 2000 mg Sodium Diet Discharge Activity: Return to Normal Activity Meaningful Use Info Meaningful Use Diagnoses (Choose all that apply): None applicable Discharge Plan Admission Admit Date/Time: 01/15/22 17:20 Primary Reason for Your Visit: Shortness of breath Attending Provider: Belem Aponte Primary Care Provider: Bursley,Tino Consulting Providers: Alec Gonzalez Discharge Orders/Prescriptions Prescriptions: New tramadol [Ultram] 50 mg tablet 50 mg PO Q8H PRN (Reason: pain) Qty: 10 RF: 0 prednisone 10 mg tablet 10 mg PO DAILY Qty: 30 RF: 0 linezolid 600 mg tablet 600 mg PO Q12H 6 Days Qty: 12 RF: 0 Continued loratadine 10 mg tablet 10 mg PO DAILY PRN (Reason: Allergies) RF: 0 insulin lispro 100 unit/mL insulin pen 42 unit subcut TIDAC RF: 0 ipratropium-albuterol 0.5 mg-3 mg(2.5 mg base)/3 mL solution for nebulization 3 ml inhalation Q4H PRN (Reason: Shortness Of Breath Or Wheezing) RF: 0 lisinopril 10 mg tablet 10 mg PO DAILY RF: 0 metformin 500 mg tablet extended release 24 hr 2,000 mg PO DAILY RF: 0 metoprolol succinate 25 mg tablet extended release 24 hr 25 mg PO DAILY RF: 0 hskiyvmg-pzct-RM-calcium-mins 1 EACH tablet 1 ea PO DAILY RF: 0 gabapentin 300 MG capsule 900 mg PO BID RF: 0 omeprazole 40 MG capsule,delayed release(DR/EC) 40 mg PO DAILY RF: 0 atorvastatin 40 MG tablet 40 mg PO QHS RF: 0 diltiazem HCl 120 MG capsule 120 mg PO DAILY RF: 0 apixaban 5 MG tablet 5 mg PO BID RF: 0 furosemide 40 mg tablet 80 mg PO BID RF: 0 cholecalciferol (vitamin D3) 1,250 mcg (50,000 unit) capsule 1,250 mcg PO WE RF: 0 Tresiba FlexTouch U-200 200 unit/mL (3 mL) insulin pen 100 unit SUBCUT BID RF: 0 Trulicity 4.5 mg/0.5 mL pen injector 4.5 mg SUBCUT WE RF: 0 potassium chloride 20 mEq tablet extended release 20 meq PO BID Qty: 60 RF: 11 Discontinued hydrochlorothiazide 12.5 mg tablet 12.5 mg PO DAILY RF: 0 Referrals / Follow Up: Nelly Hunter NP, SHAREPOINT MANAGER-C [Nurse Practitioner] - 02/07/22 9:45 am PodlogHallie barnett NP, SHAREPOINT MANAGER-C [NON-STAFF] - 01/23/22 1:30 pm Disposition Disposition (needs filled in before D/C Order can be placed): Home, Self Care Charges/Coding Visit Charges Inpatient E&M: 81641 Disch Hosp
--- NOTE | 2022-01-17 11:24 | CASEMGMT ---
Addendum entered by Brandy Suresh 01/17/22 14:37: Per Dr. Aponte, pt now will not be discharged as her blood cultures are now positive. CM to follow. Chris VENTURA CM Addendum entered by Brandy Suresh 01/17/22 12:06: Ashlyn aware of order faxed and that pt discharging today. Chris VENTURA CM Addendum entered by Brandy Suresh 01/17/22 12:03: This RN CM back to room to check on pt's choice for HHC and pt now states that she does not want HHC at this time. Pt states 'I have people that can help me and I will use by [facility].' Pt aware of updated referral to [facility] and voices no further questions/concerns/needs. Chris VENTURA CM Original Note: Pt qualifies for 2L at rest and 4L w/ exertion [facility]. This RN CM to room and pt is interested in HHC. Pt provided list of HHC providers including quality and resource use data and consistent with the pt's preferred geographic region, medical needs, and insurance network. This RN CM to check back with pt regarding preference. Chris VENTURA CM
[2022-01-17 11:30] LABS: Bedside Glucose 433 mg/dL (70-110)
--- NOTE | 2022-01-17 14:46 | PCM.PN.HOSP ---
Subjective Subjective Patient reports she is feeling well and would like to go home. She is back on her home baseline oxygen. She still complains of right leg pain however she does note that it is improved since yesterday. I reviewed with her the results of the imaging. Objective Data Objective Data Vital Signs: Vital Signs Temp Pulse Resp BP Pulse Ox 98.8 F 88 17 157/88 H 98 01/17/22 14:12 01/17/22 14:12 01/17/22 14:12 01/17/22 14:12 01/17/22 14:12 Oxygen Flow Rate (L/min) [ 4 AMBULATING with Oxygen #2] Oxygen Flow Rate (L/min) [ 2 AMBULATING with Oxygen #1] Oxygen Flow Rate (L/min) [At 2 REST with Oxygen] Oxygen Flow Rate (L/min) 2 Oxygen Delivery Method Nasal Cannula Weight: 176.5 kg Body Mass Index (BMI) 64.7 Intake & Output: Intake and Output for Last 24 Hours 01/15/22 01/16/22 01/17/22 23:59 23:59 23:59 Intake Total 305 / 305 370 / 370 600 / 600 Output Total 2700 / 3400 2500 / 2500 Balance 305 / -695 -2330 / -3030 -1900 / -1900 Lab / Micro Data Result Diagrams: 01/17/22 04:19 01/17/22 04:19 Labs: Laboratory Results - last 24 hr 01/16/22 16:26: POC Glucose 497 H* 01/16/22 21:20: POC Glucose > 500 H* 01/16/22 21:40: Glucose 629 H* 01/16/22 23:27: POC Glucose > 500 H* 01/17/22 01:10: POC Glucose 473 H* 01/17/22 04:19: WBC 13.7 H, RBC 4.25, Hgb 12.3, Hct 39.8, MCV 93.6, MCH 28.9, MCHC 30.9 L, RDW Std Deviation 46.1 H, RDW Coeff of Darrion 13.4, Plt Count 284, MPV 10.4, Immature Gran % (Auto) 0.700, Neut % (Auto) 88.8 H, Lymph % (Auto) 6.3 L, [place] % (Auto) 3.8, Eos % (Auto) 0.0, Baso % (Auto) 0.4, Absolute Neuts (auto) 12.2 H, Absolute Lymphs (auto) 0.86, Nucleated RBC % 0 01/17/22 04:19: Sodium 134 L, Potassium 4.7, Chloride 95 L, Carbon Dioxide 35.0 H, Anion Gap 4 L, BUN 33 H, Creatinine 1.08 H, Estim Creat Clear Calc 59.81, Est GFR (MDRD) Af Amer 71, Est GFR (MDRD) Non-Af 58 L, BUN/Creatinine Ratio 30.6 H, Glucose 377 H, Calcium 10.1 01/17/22 06:28: POC Glucose 360 H 01/17/22 11:20: POC Glucose 433 H Micro: Microbiology 01/16/22 05:30 Sputum, Expectorated/Coughed Gram Stain - Final 01/16/22 05:30 Sputum, Expectorated/Coughed Respiratory Culture - Preliminary Appears to be normal respiratory nando. Further studies to follow. 01/15/22 17:10 Blood Culture (Wb) - Anticubital Right Blood Culture - Preliminary Coag Negative Staph 01/15/22 17:00 Blood Culture (Wb) - Anticubital Right Bacteria Detection (PCR) - Final Staphylococcus epidermidis mecA Resistance Marker 01/15/22 17:00 Blood Culture (Wb) - Anticubital Right Blood Culture - Preliminary Staphylococcus epidermidis 01/15/22 23:50 Urine, Clean Catch Legionella Antigen - Final 01/15/22 23:50 Urine, Clean Catch Streptococcus pneumoniae Antigen (M - Final 01/15/22 20:10 Mucosa - Nasopharyngeal Influenza Types A,B Direct FA (VIKTOR) - Final 01/15/22 15:33 Nasal Secretion SARS-CoV-2 Antigen (Rapid) - Final Radiography Diagnostic Testing: Radiology Impression Hip/Pelvis X-Ray 01/16/22 15:31 IMPRESSION: No acute findings. Electronically Signed: George Leiva MD at 17:39 EST , Lumbar Spine X-Ray 01/16/22 15:31 IMPRESSION: Normal x-ray examination of the lumbar spine. Electronically Signed: Obed Young MD at 17:17 EST , Physical Exam Narrative Const alert, oriented x3, no apparent distress and well nourished Constitutional Narrative: Super morbidly obese middle-aged white female getting up with therapy and transitioning to a chair at the bedside Exam Limitations: no limitations Nutritional Appearance: morbidly obese HEENT head/scalp atraumatic and moist oral mucous membranes Head and Scalp: normocephalic Resp normal respiratory effort, no retractions, no use of accessory muscles and clear to auscultation bilaterally Resp Narrative: Patient room diffusely diminished but end expiratory wheeze has resolved Auscultation: Negative for crackles, rales, rhonchi or wheezes Cardio regular rate, regular rhythm, S1 normal heart sound, S2 normal heart sound, no murmurs, no rub, no gallops, no clicks and no JVD Cardio Narrative: Distant heart tones secondary to body habitus GI normal to inspection, nondistended, normoactive bowel sounds, soft to palpation, non-tender and non-distended GI Narrative: Large pannus Extremity Extremity Narrative: Bilateral lower extremity edema with skin changes consistent with chronic venous stasis, no clubbing or cyanosis Skin Skin Narrative: Skin is dry with no noted open lesions Neuro oriented x3, moves all extremities and no focal motor deficits Neuro Narrative: Bilateral lower extremity neuropathy Sensorium / Orientation: awake and alert Speech: speech normal Assessment & Plan Assessment/Plan (1) Acute on chronic respiratory failure with hypoxia and hypercapnia: (2) Acute hyponatremia: (3) KERRY (acute kidney injury): (4) Right leg pain: (5) Pneumonia: PLAN: Acute on chronic hypoxic and hypercapnic respiratory failure secondary to noncompliance/possible pneumonia/COPD exacerbation/diastolic heart failure -Patient states she has been noncompliant with her BiPAP at home and feels that this is contributing to her current situation -Discussed with her the importance of continued compliance because otherwise she is going to have frequent admissions related to this -Sputum cultures with normal oral nando -Flu negative/RSV negative -Covid negative -Discontinue IV Solu-Medrol and convert to oral prednisone 40 mg daily -Strep pneumo and Legionella antigens negative -Continue ceftriaxone and azithromycin -X-ray looks like pneumonia but it is markedly underpenetrated -Continue diuresis as ordered -Continue fluid restriction but increase to 1800 cc daily -Continue nocturnal BiPAP -Patient is now back to her home baseline oxygen requirements -Continue I-S and Pep therapy Staph epi bacteremia -Mec resistance noted -Patient now with 3 of 4 bottles positive -Discussed with infectious disease and will start linezolid -ID consult pending -No echo required at this time -If stable will plan for discharge tomorrow Hyperkalemia -Resolved KERRY -Resolved Acute hyponatremia -Up to 134 -We will discontinue hydrochlorothiazide at discharge as patient is also on Lasix -Repeat BMP in a.m. Right leg pain -This has been persistent after her fall prior to admission -All x-rays are negative -Suspect soft tissue injury with fall -Continue as needed Tylenol and oxycodone -Patient has Dilaudid for breakthrough -Patient is on gabapentin at baseline for neuropathy -PT/OT following -Resistive to home health DM-2 uncontrolled -Patient follows with outpatient endocrinology -Sugars are currently higher than baseline as she is on steroids -Convert to prednisone -Continue home insulin as ordered -Increase sliding scale to high-dose -Recommend continued outpatient follow-up -Hold home oral agents GERD -Continue Protonix History of PE -Continue Eliquis twice daily LOGAN/obesity hypoventilation syndrome -Continue BiPAP with naps and nightly -Follow-up with Dr. Dumont as an outpatient Hyperlipidemia -Continue statin Depression -Patient currently not on antidepressant -May need to reevaluate if sodium does not improve Hypertension -Continue diltiazem -Continue Lasix -Hold hydrochlorothiazide and will discontinue on discharge -Continue lisinopril -Continue metoprolol DVT prophylaxis -Patient is fully anticoagulated with Eliquis CODE STATUS -Full code Charges/Coding Visit Charges Inpatient E&M: 64028 Subs Hosp L2
[2022-01-17] MEDS: Linezolid 600 MG Tablet PO ×2 (15:30→21:11)
[2022-01-17 16:45] LABS: Bedside Glucose > 500 mg/dL (70-110)
[2022-01-17] MEDS: Furosemide 40 MG Tablet PO (17:13)
[2022-01-17 20:56] LABS: Bedside Glucose > 500 mg/dL (70-110)
[2022-01-17] MEDS: Atorvastatin Calcium 40 MG Tablet PO (21:12)
[2022-01-17 21:47] LABS: Glucose 495 mg/dL (74-106)
[2022-01-18] VITALS (9 sets, daily range): BP systolic 150–152; BP diastolic 79–90; PULSE 69–84; RESP 14–22; TEMP 36.6; O2SAT 95–99
[2022-01-18] MEDS: oxyCODONE 5 MG Tablet PO ×2 (01:54→09:08)
[2022-01-18 05:46] LABS: Absolute Lymphocyte Count 2.12 X10^3/uL (0.83-4.51); Absolute Neutrophil Count 10.4 X10^3/uL (2.0-7.7); Basophil# 0.06 X10^3/uL; Basophil% 0.5 % (0-1); Eosinophil# 0.01 X10^3/uL; Eosinophils% 0.1 % (0-5); Hematocrit 39.2 % (37-47); Hemoglobin 12.5 g/dL (12.0-15.0); Lymphocyte # 2.12 X10^3/ul (0.83-4.51); Mean Corp Hgb Conc 31.9 g/dL (32-36); Mean Corpuscular Hgb 29.6 pg (27.0-32.0); Mean Corpuscular Volume 92.7 fL (81-99); Mean Platelet Vol. 10.1 fl (6.2-12.0); Monocyte# 0.62 X10^3/uL; Monocyte% 4.7 % (0-10); NRBC Flagged by Analyzer 0 % (0-5); Neutrophil % 78.2 % (47-70); Platelet Count 320 K/mm3 (150-450); RBC Distribution Width CV 13.5 % (11.6-14.6); RBC Distribution Width SD 45.5 fl (35.1-43.9); Red Blood Count 4.23 M/mm3 (4.2-5.4); White Blood Count 13.3 K/mm3 (4.4-11.0)
[2022-01-18 06:08] LABS: Anion Gap 5 (5-15); BUN 38 mg/dL (7-18); BUN/Creat Ratio 38.4 RATIO (10-20); Calcium,Total 10.2 mg/dL (8.5-10.1); Chloride 93 mmol/L (98-107); Creatinine, Serum 0.99 mg/dL (0.55-1.02); EST Glomerular Filtration Rate 65 mL/min (>60); Est Glom Filt Rate - Afr Amer 78 mL/min (>60); Estimated Creatinine Clearance 65.25 ml/min; Glucose 309 mg/dL (74-106); Potassium 4.1 mmol/L (3.5-5.1); Sodium Level 133 mmol/L (136-145)
[2022-01-18] MEDS: Ipratropium/Albuterol Sulfate 3 ML AMPUL.NEB INHALATION ×3 (07:04→14:58)
[2022-01-18 08:26] LABS: Bedside Glucose 281 mg/dL (70-110)
[2022-01-18] MEDS: Insulin Lispro 100 UNIT/ML INSULN.PEN SC ×2 (08:51→11:47)
[2022-01-18] MEDS: Insulin Lispro 100 UNIT/ML INSULN.PEN 36 UNIT SC ×2 (08:51→11:47)
[2022-01-18] MEDS: predniSONE 20 MG Tablet 40 MG PO (08:52)
[2022-01-18] MEDS: Gabapentin 300 MG Capsule 900 MG PO (08:52)
[2022-01-18] MEDS: Multivitamins,Ther W-Minerals Tablet 1 TABLET PO (08:52)
[2022-01-18] MEDS: guaiFENesin 1,200 MG Tablet 1200 MG PO (08:53)
[2022-01-18] MEDS: dilTIAZem CD 120 MG Capsule PO (08:53)
[2022-01-18] MEDS: Pantoprazole Sodium 40 MG Tablet PO (08:53)
[2022-01-18] MEDS: APIXABAN 5 MG TABLET PO (08:54)
[2022-01-18] MEDS: Senna/Docusate Sodium 1 Tablet 2 TABLET PO (08:54)
[2022-01-18] MEDS: Metoprolol(XL)Succ 25 MG Tablet PO (09:02)
[2022-01-18] MEDS: Furosemide 40 MG Tablet PO (09:08)
[2022-01-18] MEDS: Linezolid 600 MG Tablet PO (09:28)
--- NOTE | 2022-01-18 09:50 | WOUNDNOTE ---
wound photo: left lower leg
--- NOTE | 2022-01-18 09:51 | WOUNDNOTE ---
wound photo: right lower leg
--- NOTE | 2022-01-18 09:51 | WOUNDNOTE ---
Was asked by nursing to assess bilateral lower legs. patient has a small scab to bilateral shins. both measures just over 1cm. both are dry. there are no signs of infection noted. can leave [employer]. no need for wound care at this time.
[2022-01-18 11:56] LABS: Bedside Glucose 282 mg/dL (70-110)
--- NOTE | 2022-01-18 13:05 | PCM.CONS.GEN ---
Assessment & Plan Assessment/Plan (1) Pneumonia: PLAN: Complicated by MRSE bacteremia. Ok for home with 6 more days of linezolid. Has had J&J covid vaccine x1, due for booster, she agrees to receive moderna booster here prior to leaving. Wrote for rx, d/w Dr. Aponte yesterday. Will follow as needed, thank you HPI Consult Data Date of Consult: 01/18/22 HPI Narrative HPI Narrative: MACARIO OVERTON, is a 46 F with COPD, DM, obesity, presented 01/15 with about 1 week of worsening dyspnea. Had increased BLE edema prior to that, developed redness and purulence from L strat[place] wound. Did not receive abx, leg scabbed over. No fever or chills. Started to have brown sputum. Has had covid vaccine x1 (J&J). Admitted on azithro/ceftriaxone, changed to linezolid 01/17, feeling much better. Full ROS performed and neg except as noted above. [facility] Medical History Abscess Abscess of vulva KERRY (acute kidney injury) Anxiety BiPAP (biphasic positive airway pressure) dependence Chronic diastolic (congestive) heart failure Chronic respiratory failure with hypoxia COPD (chronic obstructive pulmonary disease) Depression Diabetes Dyspnea on exertion Essential hypertension GERD (gastroesophageal reflux disease) Hidradenitis History of left heart catheterization (LHC) (~01/05/19) History of MRSA infection Hyperglycemia due to type 2 diabetes mellitus Hyperlipidemia Hypertension Morbid obesity Necrotizing soft tissue infection Non-healing open wound of left groin NSTEMI (non-ST elevated myocardial infarction) 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 Old myocardial infarction On home oxygen therapy Open wound of vulva with complication Opiate overdose Pulmonary embolism Respiratory failure with hypoxia Restrictive lung disease secondary to obesity Sleep apnea Smoker Soft tissue abscess of inguinal region Tobacco abuse Type 2 diabetes mellitus Home Medications [id number]-calcium-mins 1 ea PO DAILY 03/26/17 [History Last Taken 01/15/22] gabapentin 900 mg PO BID 05/29/17 [History Last Taken 01/15/22] omeprazole 40 mg PO DAILY 12/15/18 [History Last Taken 01/15/22] loratadine 10 mg tablet 10 mg PO DAILY PRN tab 03/01/20 [History Last Taken 01/15/22] apixaban 5 mg PO BID 08/20/20 [History Last Taken 01/15/22] atorvastatin 40 mg PO QHS 08/20/20 [History Last Taken 01/15/22] diltiazem HCl 120 mg PO DAILY 08/20/20 [History Last Taken 01/15/22] insulin lispro 100 unit/mL subcutaneous pen 42 unit SUBCUT TIDAC ml 03/26/21 [History Last Taken 01/15/22] ipratropium 0.5 mg-albuterol 3 mg (2.5 mg base)/3 mL nebulization soln 3 ml INHALATION Q4H PRN ml 03/26/21 [History Last Taken 01/15/22] lisinopril 10 mg tablet 10 mg PO DAILY tablet 03/26/21 [History Last Taken 01/15/22] metformin 500 mg tablet,extended release 24 hr 2,000 mg PO DAILY tablet 03/26/21 [History Last Taken 01/15/22] metoprolol succinate 25 mg tablet,extended release 24 hr 25 mg PO DAILY tablet 03/26/21 [History Last Taken 01/15/22] potassium chloride 20 mEq tablet,extended release 20 meq PO BID #60 tab 08/02/21 [Rx Last Taken 01/15/22] furosemide 40 mg tablet 80 mg PO BID tab 08/20/21 [History Last Taken 01/15/22] Tresiba FlexTouch U-200 100 unit SUBCUT BID 01/15/22 [History Last Taken 01/15/22] Trulicity 4.5 mg SUBCUT WE 01/15/22 [History Last Taken 01/09/22] cholecalciferol (vitamin D3) 1,250 mcg PO WE 01/15/22 [History Last Taken 01/09/22] prednisone 10 mg PO DAILY #30 tab 01/17/22 [Rx Last Taken Unknown] tramadol [Ultram] 50 mg PO Q8H PRN #10 tab 01/17/22 [Rx Last Taken Unknown] linezolid 600 mg PO Q12H 6 Days #12 tab 01/18/22 [Rx Last Taken Unknown] Allergy/AdvReac Type Severity Reaction Status Date / Time cyclobenzaprine HCl Allergy Hives Verified 01/15/22 15:03 [From Flexeril] venlafaxine [From Effexor] AdvReac Severe unknown Verified 01/15/22 15:03 Family History Father CVA (cerebral vascular accident) Heart disease Diabetes Mother Thyroid disorder Surgical History H/O arthroscopic knee surgery History of delivery History of cholecystectomy Social History Smoking Status: Current every day smoker tobacco type: cigarettes how long ago did patient quit smokin PPD smoker second hand exposure: Yes alcohol intake: never substance use type: does not use caffeine: Yes Type: carbonated beverages Number of servings: 1 and coffee Number of servings: 1 Physical Exam Const alert, oriented x3 and no apparent distress General Appearance: cooperative Exam Limitations: no limitations HEENT normocephalic and head/scalp atraumatic Eyes PERRL and EOMs intact bilaterally Neck supple and No nodes Resp Auscultation: diminished lung sounds Cardio regular rate and regular rhythm GI soft to palpation, non-tender and non-distended Extremity General Extremity: edema Skin Skin Narrative: scabbed L strat[place] wound Neuro CN's II-XII intact bilaterally Lab / Micro Data Result Diagrams: 01/18/22 04:50 01/18/22 04:50 Labs: Laboratory Results - last 24 hr 01/17/22 16:41: POC Glucose > 500 H* 01/17/22 20:50: POC Glucose > 500 H* 01/17/22 21:09: Glucose 495 H* 01/18/22 04:50: WBC 13.3 H, RBC 4.23, Hgb 12.5, Hct 39.2, MCV 92.7, MCH 29.6, MCHC 31.9 L, RDW Std Deviation 45.5 H, RDW Coeff of Darrion 13.5, Plt Count 320, MPV 10.1, Immature Gran % (Auto) 0.500, Neut % (Auto) 78.2 H, Lymph % (Auto) 16.0 L, [place] % (Auto) 4.7, Eos % (Auto) 0.1, Baso % (Auto) 0.5, Absolute Neuts (auto) 10.4 H, Absolute Lymphs (auto) 2.12, Nucleated RBC % 0 01/18/22 04:50: Sodium 133 L, Potassium 4.1, Chloride 93 L, Carbon Dioxide 35.0 H, Anion Gap 5, BUN 38 H, Creatinine 0.99, Estim Creat Clear Calc 65.25, Est GFR (MDRD) Af Amer 78, Est GFR (MDRD) Non-Af 65, BUN/Creatinine Ratio 38.4 H, Glucose 309 H, Calcium 10.2 H 01/18/22 08:20: POC Glucose 281 H 01/18/22 11:45: POC Glucose 282 H Micro: Microbiology 01/16/22 05:30 Sputum, Expectorated/Coughed Gram Stain - Final 01/16/22 05:30 Sputum, Expectorated/Coughed Respiratory Culture - Final 01/15/22 17:10 Blood Culture (Wb) - Anticubital Right Blood Culture - Preliminary Coag Negative Staph 01/15/22 17:00 Blood Culture (Wb) - Anticubital Right Bacteria Detection (PCR) - Final Staphylococcus epidermidis mecA Resistance Marker 01/15/22 17:00 Blood Culture (Wb) - Anticubital Right Blood Culture - Preliminary Staphylococcus epidermidis
== END 2022-01-18 15:39 | disposition home or self-care (01) | DRG 193 ==
LOC: ED 17:27 → PCU 17:54
PROVIDERS: Nurse Practitioner Family; Admitting Provider Internal Medicine; Emergency Provider Emergency Medicine; PCP Family Medicine; Visit Provider Internal Medicine
DX: J18.9 Pneumonia, unspecified organism (principal); J96.21 Acute and chronic respiratory failure with hypoxia; I50.33 Acute on chronic diastolic (congestive) heart failure; J96.22 Acute and chronic respiratory failure with hypercapnia; R78.81 Bacteremia; E66.2 Morbid (severe) obesity with alveolar hypoventilation; E87.1 Hypo-osmolality and hyponatremia; N17.9 Acute kidney failure, unspecified; J44.0 Chronic obstructive pulmonary disease with (acute) lower respiratory infection; Z68.44 Body mass index [BMI] 60.0-69.9, adult; J44.1 Chronic obstructive pulmonary disease with (acute) exacerbation; E11.40 Type 2 diabetes mellitus with diabetic neuropathy, unspecified; B95.7 Other staphylococcus as the cause of diseases classified elsewhere; I11.0 Hypertensive heart disease with heart failure; J44.9 Chronic obstructive pulmonary disease, unspecified; Z79.4 Long term (current) use of insulin; E11.65 Type 2 diabetes mellitus with hyperglycemia; S09.90XA Unspecified injury of head, initial encounter; E78.5 Hyperlipidemia, unspecified; S80.01XA Contusion of right knee, initial encounter; K21.9 Gastro-esophageal reflux disease without esophagitis; F17.210 Nicotine dependence, cigarettes, uncomplicated; M19.90 Unspecified osteoarthritis, unspecified site; E87.5 Hyperkalemia; I25.2 Old myocardial infarction; G47.33 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 (adult) (pediatric); W01.198A Fall on same level from slipping, tripping and stumbling with subsequent striking against other object, initial encounter; Z79.01 Long term (current) use of anticoagulants; F32.A Depression, unspecified; Z20.822 Contact with and (suspected) exposure to COVID-19; Z23 Encounter for immunization; Z99.81 Dependence on supplemental oxygen; Z86.711 Personal history of pulmonary embolism; Z79.899 Other long term (current) drug therapy; Z91.19 Patient's noncompliance with other medical treatment and regimen
CPT/HCPCS: 0064A; 36415; 36600; 70450; 71045; 72100; 72125; 73502; 73560; 80048; 80053; 80061; 82803; 82947; 82962; 83036; 83605; 83880; 84484; 85025; 87040; 87070; 87149; 87186; 87205; 87426; 87449; 87641; 87804; 91306; 93005; 94002; 94003; 94640; 97110; 97162; 97166; 97530; 97535; 97802; 97803; 99251; 99285; 99406; G0008; J7050; 90686; A4216; G0463; J0696; J1940

== ENCOUNTER 2022-03-01 12:15 | Outpatient (CLI) | payer MEDICARE, MEDICAID, SELFPAY ==
[2022-03-01 12:43] VITALS: PULSE 120; PULSE 121; PULSE 123; PULSE 130; PULSE 132; PULSE 138; PULSE 141; O2SAT 85; O2SAT 87; O2SAT 89; O2SAT 90; O2SAT 92; O2SAT 93; O2SAT 96
--- NOTE | 2022-03-01 12:49 | CPS ---
PATIENT HAS OXYGEN THROUGH [facility]. PLACED ON RA PRIOR TO TESTING. SHORT REST BREAK TAKEN BY PATIENT EACH MINUTE FOR INCREASED WOB. 4LPM CONTINUOUS FLOW OXYGEN WAS REQUIRED DURING TEST TO KEEP PATIENT SPO2 ABOVE 88%. PATIENT'S HR WAS HIGH THROUGHOUT TESTING, ALTHOUGH ONLY FLUCTUATED 21 BEATS FROM BASELINE. RETURNED TO BASELINE PRIOR TO D/C
--- NOTE | 2022-03-01 14:46 | PCM.PSN.6M ---
PSN 6 Minute Walk Test 6 Minute Walk Test 6 Minute Walk Test: 6 Minute Walk Test PSN:6-Minute Walk Test Start: 03/01/22 12:43 Freq: Status: Active Protocol: [id number] Document 03/01/22 12:43 [facility] (Rec: 03/01/22 12:55 [facility] [id number]) 6 Minute Walk Test Date Performed 03/01/22 Time Performed 12:30 Height 64 ft Weight: 163.293 kg Weight in Pounds 360.[address]: Nelly Hunter [employer] Assistive device used: None Pre-test Oxygen Delivery Method Room Air Pulse Ox (%) 90 Pulse Rate (60-100 beats/min) 120 H Dyspnea Jimbo Scale (0-10) 0 1st minute Oxygen Delivery Method Room Air Pulse Ox (%) 85 Pulse Rate (60-100 beats/min) 132 H Dyspnea Jimbo Scale (0-10) 3 Number of Rests Taken 1 Reported Symptoms Increased Work of Breathing 2nd minute Oxygen Flow Rate (L/min) (L/min) 2 Oxygen Delivery Method Nasal Cannula Pulse Ox (%) 85 Pulse Rate (60-100 beats/min) 123 H Dyspnea Jimbo Scale (0-10) 4 Number of Rests Taken 1 Reported Symptoms Increased Work of Breathing 3rd minute Oxygen Flow Rate (L/min) (L/min) 3 Oxygen Delivery Method Nasal Cannula Pulse Ox (%) 87 Pulse Rate (60-100 beats/min) 132 H Dyspnea Jimbo Scale (0-10) 4 Number of Rests Taken 1 Reported Symptoms Increased Work of Breathing 4th minute Oxygen Flow Rate (L/min) (L/min) 4 Oxygen Delivery Method Nasal Cannula Pulse Ox (%) 89 Pulse Rate (60-100 beats/min) 130 H Dyspnea Jimbo Scale (0-10) 5 Number of Rests Taken 2 Reported Symptoms Increased Work of Breathing 5th minute Oxygen Flow Rate (L/min) (L/min) 4 Oxygen Delivery Method Nasal Cannula Pulse Ox (%) 92 Pulse Rate (60-100 beats/min) 138 H Dyspnea Jimbo Scale (0-10) 5 Number of Rests Taken 1 Reported Symptoms Increased Work of Breathing 6th minute Oxygen Flow Rate (L/min) (L/min) 4 Oxygen Delivery Method Nasal Cannula Pulse Ox (%) 93 Pulse Rate (60-100 beats/min) 141 H Dyspnea Jimbo Scale (0-10) 5 Number of Rests Taken 1 Reported Symptoms Increased Work of Breathing Post-test Oxygen Flow Rate (L/min) (L/min) 2 Oxygen Delivery Method Nasal Cannula Pulse Ox (%) 96 Pulse Rate (60-100 beats/min) 121 H Dyspnea Jimbo Scale (0-10) 1 Full Laps Walked 10 Partial Lap, Number of Tiles Walked 3 Total Distance Walked (ft) 593 03/01/22 12:49 Cardiopulmonary Services by Amber Lomax PATIENT HAS OXYGEN THROUGH [facility]. PLACED ON RA PRIOR TO TESTING. SHORT REST BREAK TAKEN BY PATIENT EACH MINUTE FOR INCREASED WOB. 4LPM CONTINUOUS FLOW OXYGEN WAS REQUIRED DURING TEST TO KEEP PATIENT SPO2 ABOVE 88%. PATIENT'S HR WAS HIGH THROUGHOUT TESTING, ALTHOUGH ONLY FLUCTUATED 21 BEATS FROM BASELINE. RETURNED TO BASELINE PRIOR TO D/C Initialized on 03/01/22 12:49 - END OF NOTE Interpretation Interpretation: Patient noted to have a saturation of 90% at rest with a heart rate of 120 bpm on room air. The patient desaturated in the first minute requiring supplemental oxygen to be added. The patient required a total of 4 L pulse dose to maintain saturations throughout testing. In total, the patient traveled 593 feet over the course of 6 minutes with no assistive devices, but 6 breaks. These findings are consistent with a respiratory limitation exercise tolerance. Recommendations Recommendations: The patient requires no supplemental oxygen at rest, but should be using 4 L pulse dose with any exertion.
== END 2022-03-01 23:59 | disposition home or self-care (01) ==
PROVIDERS: PCP Family Medicine; Referring Provider Nurse Practitioner Acute Care; Visit Provider Nurse Practitioner Acute Care
DX: R06.09 Other forms of dyspnea (principal)
CPT/HCPCS: 94618

== ENCOUNTER 2022-03-31 20:44 | Emergency (ER) | payer MEDICARE, MEDICAID, SELFPAY ==
[2022-03-31 20:45] VITALS: BP 145/72; PULSE 93; RESP 16; TEMP 36.3; O2SAT 99; BMI 64.2
--- NOTE | 2022-03-31 21:19 | EKG12_ITS ---
Test Reason : CP Blood Pressure : / mmHG Vent. Rate : 095 BPM Atrial Rate : 095 BPM P-R Int : 144 ms QRS Dur : 094 ms QT Int : 370 ms P-R-T Axes : 045 000 056 degrees QTc Int : 464 ms Normal sinus rhythm Normal ECG Confirmed by HASMUKH LORA, LILIANA ([id number]), film or videotape editor DANIELE MALDONADO ([id number]) on 04/01/2022 1:26:48 PM Referred By: BB Confirmed By:LILIANA NOE MD
--- NOTE | 2022-03-31 21:22 | EDS_ITS ---
HPI History of Present Illness Chief Complaint: Chest Pain Informant: patient Onset/Context/Timing Onset: Today (All day today) Activity at onset: gradual and onset Timing: Continuous Quality: Positive for Heaviness Location: Left Parasternal Current Severity: Moderate Maximum Severity: Moderate Worsened By: Nothing; Not Worsened By Breathing Relieved By: Nothing Associated Symptoms: Positive for - (Increased swelling abdomen, both lower extremities); Negative for Nausea, Diaphoresis, Dyspnea, Cough, Lightheadedness and Palpitations Narrative Narrative: Patient has been having increased swelling of both of her legs for several days as well as her abdomen, she has chronic edema and she states she does not know why although she has a documented history of chronic diastolic heart failure with preserved ejection fraction and has seen cardiology in the past with a heart cath that did not show anything acute several years ago. She is on diuretic. She states she is urinating less but still urinating when she takes the pills. She states a small area broke open earlier today and her right leg and pus came out although as I looked at it and saw clear fluid she concurs that is what they saw as she has a family member there who helped her look at it. [facility] Medical History Abscess Abscess of vulva KERRY (acute kidney injury) Anxiety BiPAP (biphasic positive airway pressure) dependence Chronic diastolic (congestive) heart failure Chronic respiratory failure with hypoxia Contusion of knee, right COPD (chronic obstructive pulmonary disease) Depression Diabetes Dyspnea on exertion Essential hypertension GERD (gastroesophageal reflux disease) Hidradenitis History of left heart catheterization (LHC) (~01/05/19) History of MRSA infection Hyperglycemia due to type 2 diabetes mellitus Hyperlipidemia Hypertension Morbid obesity Necrotizing soft tissue infection Non-healing open wound of left groin NSTEMI (non-ST elevated myocardial infarction) 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 Old myocardial infarction On home oxygen therapy Open wound of vulva with complication Opiate overdose Pulmonary embolism Respiratory failure with hypoxia Restrictive lung disease secondary to obesity Sleep apnea Smoker Soft tissue abscess of inguinal region Tobacco abuse Type 2 diabetes mellitus Home Medications [id number]-calcium-mins 1 ea PO DAILY 03/26/17 [History Last Taken 01/15/22] gabapentin 800 mg PO TID 05/29/17 [History Last Taken 01/15/22] omeprazole 40 mg PO DAILY 12/15/18 [History Last Taken 01/15/22] loratadine 10 mg tablet 10 mg PO DAILY PRN tab 03/01/20 [History Last Taken 01/15/22] apixaban 5 mg PO BID 08/20/20 [History Last Taken 01/15/22] diltiazem HCl 120 mg PO DAILY 08/20/20 [History Last Taken 01/15/22] insulin lispro 100 unit/mL subcutaneous pen 48 unit SUBCUT TIDAC ml 03/26/21 [History Last Taken 01/15/22] ipratropium 0.5 mg-albuterol 3 mg (2.5 mg base)/3 mL nebulization soln 3 ml INHALATION Q4H PRN ml 03/26/21 [History Last Taken 01/15/22] lisinopril 10 mg tablet 10 mg PO DAILY tablet 03/26/21 [History Last Taken 01/15/22] metformin 500 mg tablet,extended release 24 hr 2,000 mg PO DAILY tablet 03/26/21 [History Last Taken 01/15/22] metoprolol succinate 25 mg tablet,extended release 24 hr 25 mg PO DAILY tablet 03/26/21 [History Last Taken 01/15/22] potassium chloride 20 mEq tablet,extended release 20 meq PO BID #60 tab 08/02/21 [Rx Last Taken 01/15/22] Tresiba FlexTouch U-200 100 unit SUBCUT BID 01/15/22 [History Last Taken 01/15/22] Trulicity 4.5 mg SUBCUT WE 01/15/22 [History Last Taken 01/09/22] cholecalciferol (vitamin D3) 1,250 mcg PO WE 01/15/22 [History Last Taken 01/09/22] linezolid 600 mg PO Q12H 6 Days #12 tab 01/18/22 [Rx Last Taken Unknown] atorvastatin 80 mg tablet 80 mg PO QHS tab 02/07/22 [History Last Taken Unknown] furosemide 120 mg PO BID 3 Days #0 tab 03/31/22 [Rx Last Taken 01/15/22] Allergy/AdvReac Type Severity Reaction Status Date / Time cyclobenzaprine HCl Allergy Hives Verified 02/07/22 09:59 [From Flexeril] venlafaxine [From Effexor] AdvReac Severe unknown Verified 02/07/22 09:59 Family History (Reviewed 02/07/22 @ 10:08 by Nelly Hunter [employer]PERVIS[employer], [employer] SAL[employer] SUPER[employer]OR-C) Father CVA (cerebral vascular accident) Heart disease Diabetes Mother Thyroid disorder Surgical History H/O arthroscopic knee surgery History of delivery History of cholecystectomy Social History Smoking Status: Current every day smoker tobacco type: cigarettes how long ago did patient quit smokin PPD smoker second hand exposure: Yes alcohol intake: never substance use type: does not use caffeine: Yes Type: carbonated beverages Number of servings: 1 and coffee Number of servings: 1 ROS ROS ED Constitutional Constitutional ED: Denies chills or fever(s) Eyes Eyes: Denies change in vision or diplopia ENT ENT ED: Denies rhinorrhea or sore throat Cardiovascular Cardiovascular: Reports chest pain and pedal edema; Denies palpitations Respiratory/Chest Respiratory/Chest: Reports dyspnea on exertion; Denies cough Gastrointestinal Gastrointestinal: Denies abdominal pain, diarrhea, nausea or vomiting Genitourinary Genitourinary ED: Denies dysuria or hematuria Musculoskeletal Musculoskeletal: Denies back pain or neck pain Integumentary Reports wounds; Denies abscess or rash Neurologic Neurologic: Denies headache(s), paresthesias or weakness Psychiatric Psychiatric: Denies anxiety or suicidal thoughts EXAM Physical Exam Const Vital Signs: 03/31/22 20:45 03/31/22 21:27 03/31/22 21:40 Temperature 97.3 F L Temperature Source Temporal Pulse Rate 93 93 Respiratory Rate 16 Blood Pressure 145/72 H 122/72 H Blood Pressure Mean 96 Pulse Ox 99 Oxygen Delivery Method Nasal Cannula Nasal Cannula Oxygen Flow Rate (L/min) 4 4 03/31/22 21:48 03/31/22 22:22 Temperature Temperature Source Pulse Rate 98 93 Respiratory Rate 18 18 Blood Pressure 94/55 L 98/85 H Blood Pressure Mean 68 89 Pulse Ox 94 Oxygen Delivery Method Nasal Cannula Oxygen Flow Rate (L/min) 4 Positive well nourished and well developed General Appearance ED: well developed and NAD Nutritional Appearance: morbidly obese HEENT Reports moist mucous membranes normocephalic and atraumatic Eyes PERRL and EOMs intact bilaterally Neck full ROM and supple Resp normal respiratory effort and clear to auscultation bilaterally Cardio regular rate, regular rhythm and no murmurs GI non-tender and non-distended GI Narrative: Exam limited due to morbid obesity. No peau d'orange appearance of the abdominal wall, which is otherwise unremarkable appearing. Auscultation: normoactive bowel sounds Palpation: soft Back/Spine no CVA tenderness General Back: other FROM Extremity normal to inspection General Extremety ED: Yes edema; Negative for pulses abnormal or tenderness General Extremity: edema bilateral lower extremity (With chronic stasis dermatitis both lower legs symmetric and nontender) Details: moderate; Negative for pulses abnormal Neuro oriented x3, CN's II-XII intact bilaterally and no sensory deficits noted Sensorium / Orientation: awake and alert Motor Exam: strength 5/5 throughout Skin no rashes or lesions noted Skin Narrative: There is a very small area that family member points out to me in the anterior right lower leg where there is chronic stasis dermatitis where there is barely a small amount of clear serous liquid expressible which is nontender, no purulent discharge, no abscess. Heart Score History: Moderately Suspicious ECG: Normal Age: </= 45 years Risk Factors: >/= 3 Risk Factors or History of CAD Troponin: </= Normal Limit Score: 3 MDM MDM MDM Narrative Medical decision making narrative: With regards to her chest discomfort, we gave her nitroglycerin initially she states it did not help at all and it dropped her blood pressure to the 90s, so we did not repeat with any more nitroglycerin. Rather we gave her GI cocktail, her chest pain felt much better afterwards. Relatively low heart score, negative troponin and BNP. She does have a history of diastolic failure and is on Lasix 80 mg twice daily prescribed by her ca rdiology providers. Either the Lasix is less effective than usual recently in context of normal renal function, or she is urinating less because her blood sugars are in the 1-200 range, which she states is unusually low for her. Regardless with the edema she is having, I think increasing her Lasix to 120 mg twice daily for the next 3 or 4 days and following up with cardiology would be reasonable. With respect to the small opening/wound on her right lower leg, there is no acute infection here. It appears to be serous fluid that came out likely related to the edema she has in her leg, which certainly could be a nidus for a future infection. We cleansed and dressed it with bacitracin she was advised to continue doing the same. Lab Data Attestation: I reviewed the patient's lab results. Labs: Laboratory Results - last 24 hr 03/31/22 03/31/22 03/31/22 21:25 21:25 21:25 WBC 12.2 H RBC 3.91 L Hgb 11.7 L Hct 37.1 MCV 94.9 MCH 29.9 MCHC 31.5 L RDW Std Deviation 50.9 H RDW Coeff of Darrion 14.9 H Plt Count 302 MPV 10.4 Immature Gran % (Auto) 0.900 Neut % (Auto) 65.1 Lymph % (Auto) 26.6 [place] % (Auto) 4.2 Eos % (Auto) 2.5 Baso % (Auto) 0.7 Absolute Neuts (auto) 8.0 H Absolute Lymphs (auto) 3.25 Nucleated RBC % 0 Sodium 134 L Potassium 3.7 Chloride 93 L Carbon Dioxide 35.0 H Anion Gap 6 BUN 18 Creatinine 1.09 H Estim Creat Clear Calc 59.27 Est GFR (MDRD) Af Amer 70 Est GFR (MDRD) Non-Af 58 L BUN/Creatinine Ratio 16.5 Glucose 226 H Calcium 9.3 Troponin I High Sens 19 B-Natriuretic Peptide 5.9 Radiography Chest X-Ray - ED: 1 View, Read by ED Physician and No Acute Disease Diagnostic Testing: Clinical Impression(s) from Imaging Studies Chest X-Ray 03/31/22 21:30 IMPRESSION: No radiographic evidence of acute cardiopulmonary disease. Electronically Signed: Eulogio Bustos MD at 22:21 EDT , Rhythm Strip Rhythm Strip: Sinus Rhythm Rate: 95 Ectopy: None EKG Initial EKG: Attestation: I personally reviewed and interpreted this EKG as follows: Interpretation: Sinus Rhythm and No Acute Injury Pattern Comments: normal EKG Prior EKG tracings: available for review Prior: Unchanged Discharge Plan Triage Chief Complaint: Chest Pain ED Provider: Dayron Nix Dx/Rx/DC Orders Clinical Impression: Chest pain, unspecified, Edema of both lower extremities Instructions: ED Chest Pain, Uncertain Cause, ED Peripheral Edema, Bilateral Prescriptions: Continued loratadine 10 mg tablet 10 mg PO DAILY PRN (Reason: Allergies) RF: 0 insulin lispro 100 unit/mL insulin pen 48 unit subcut TIDAC RF: 0 ipratropium-albuterol 0.5 mg-3 mg(2.5 mg base)/3 mL solution for nebulization 3 ml inhalation Q4H PRN (Reason: Shortness Of Breath Or Wheezing) RF: 0 lisinopril 10 mg tablet 10 mg PO DAILY RF: 0 metformin 500 mg tablet extended release 24 hr 2,000 mg PO DAILY RF: 0 metoprolol succinate 25 mg tablet extended release 24 hr 25 mg PO DAILY RF: 0 atorvastatin 80 mg tablet 80 mg PO QHS RF: 0 cjfchyhp-amai-GM-calcium-mins 1 EACH tablet 1 ea PO DAILY RF: 0 gabapentin 300 MG capsule 800 mg PO TID RF: 0 omeprazole 40 MG capsule,delayed release(DR/EC) 40 mg PO DAILY RF: 0 diltiazem HCl 120 MG capsule 120 mg PO DAILY RF: 0 apixaban 5 MG tablet 5 mg PO BID RF: 0 cholecalciferol (vitamin D3) 1,250 mcg (50,000 unit) capsule 1,250 mcg PO WE RF: 0 Tresiba FlexTouch U-200 200 unit/mL (3 mL) insulin pen 100 unit SUBCUT BID RF: 0 Trulicity 4.5 mg/0.5 mL pen injector 4.5 mg SUBCUT WE RF: 0 linezolid 600 mg tablet 600 mg PO Q12H 6 Days Qty: 12 RF: 0 potassium chloride 20 mEq tablet extended release 20 meq PO BID Qty: 60 RF: 11 Changed furosemide 40 mg tablet 120 mg PO BID 3 Days Qty: 0 RF: 0 Primary Care Provider: Tino Oreilly Referrals: Tino Oreilly MD [Primary Care Provider] - Sandra Mesa PA [PHYSICIAN PIPE TESTER] - 3-5 Days Disposition Disposition: Home, Self Care
--- NOTE | 2022-03-31 21:30 | RAD_ITS ---
EXAM: XR CHEST, 1 VIEW CLINICAL INDICATION: chest pain TECHNIQUE: Frontal view of the chest. This report was created using [email or web address] report generation technology. COMPARISON: 01/15/2022 FINDINGS: LUNGS AND PLEURAL SPACES: Unremarkable. No consolidation or edema. No pneumothorax. No effusion. HEART: Unremarkable. Cardiac silhouette not enlarged. MEDIASTINUM: Central airways and mediastinal contour are unremarkable. BONES/JOINTS: Unremarkable. SOFT TISSUES: Unremarkable. RAD/Chest 1 View (Portable) IMPRESSION: No radiographic evidence of acute cardiopulmonary disease. Electronically Signed: Eulogio Bustos MD at 22:21 EDT ,
[2022-03-31 21:40] VITALS: BP 122/72; PULSE 93
[2022-03-31] MEDS: Nitroglycerin SL (ED/IMG/CATH) 0.4 MG TABLET SL (21:40)
[2022-03-31 21:44] LABS: Absolute Lymphocyte Count 3.25 X10^3/uL (0.83-4.51); Basophil# 0.08 X10^3/uL; Basophil% 0.7 % (0-1); Eosinophils% 2.5 % (0-5); Hematocrit 37.1 % (37-47); Hemoglobin 11.7 g/dL (12.0-15.0); Lymphocyte # 3.25 X10^3/ul (0.83-4.51); Lymphocyte % 26.6 % (19-41); Mean Corp Hgb Conc 31.5 g/dL (32-36); Mean Corpuscular Hgb 29.9 pg (27.0-32.0); Mean Corpuscular Volume 94.9 fL (81-99); Mean Platelet Vol. 10.4 fl (6.2-12.0); Monocyte# 0.51 X10^3/uL; Monocyte% 4.2 % (0-10); NRBC Flagged by Analyzer 0 % (0-5); Neutrophil # 7.96 X10^3/uL (2.7-7.7); Neutrophil % 65.1 % (47-70); Platelet Count 302 K/mm3 (150-450); RBC Distribution Width CV 14.9 % (11.6-14.6); RBC Distribution Width SD 50.9 fl (35.1-43.9); Red Blood Count 3.91 M/mm3 (4.2-5.4); White Blood Count 12.2 K/mm3 (4.4-11.0)
[2022-03-31 21:48] VITALS: BP 94/55; PULSE 98; RESP 18; O2SAT 94
[2022-03-31 22:13] LABS: Anion Gap 6 (5-15); BUN 18 mg/dL (7-18); BUN/Creat Ratio 16.5 RATIO (10-20); Calcium,Total 9.3 mg/dL (8.5-10.1); Chloride 93 mmol/L (98-107); Creatinine, Serum 1.09 mg/dL (0.55-1.02); EST Glomerular Filtration Rate 58 mL/min (>60); Est Glom Filt Rate - Afr Amer 70 mL/min (>60); Estimated Creatinine Clearance 59.27 ml/min; Glucose 226 mg/dL (74-106); Potassium 3.7 mmol/L (3.5-5.1); Sodium Level 134 mmol/L (136-145); Troponin-I HS (w/2H Reflex) 19 pg/mL (3.0-54.0)
[2022-03-31 22:18] LABS: BNP,B-Type NATRIURETIC PEPTIDE 5.9 pg/mL (0-100)
[2022-03-31] MEDS: Dicyclomine 10 MG Capsule 20 MG PO (22:20)
[2022-03-31] MEDS: Mag Hydrox/Al Hydrox/Simeth 30 ML UDC PO (22:21)
[2022-03-31 22:22] VITALS: BP 98/85; PULSE 93; RESP 18
[2022-03-31 22:56] VITALS: BP 102/85; PULSE 90; RESP 18
== END 2022-03-31 22:57 | disposition home or self-care (01) ==
PROVIDERS: Emergency Provider Emergency Medicine; PCP Family Medicine; Visit Provider Emergency Medicine
DX: R07.9 Chest pain, unspecified (principal); I11.0 Hypertensive heart disease with heart failure; I50.32 Chronic diastolic (congestive) heart failure; E11.9 Type 2 diabetes mellitus without complications; Z79.4 Long term (current) use of insulin; R60.0 Localized edema; F17.210 Nicotine dependence, cigarettes, uncomplicated; I25.2 Old myocardial infarction; G47.33 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 (adult) (pediatric); Z79.899 Other long term (current) drug therapy; Z99.81 Dependence on supplemental oxygen; Z86.711 Personal history of pulmonary embolism
CPT/HCPCS: 71045; 80048; 83880; 84484; 85025; 93005; 99285; A4216

== ENCOUNTER 2022-09-22 16:23 | Inpatient (IN) | payer MEDICARE, MEDICAID, SELFPAY ==
[2022-09-22] VITALS (11 sets, daily range): BP systolic 120–167; BP diastolic 64–79; PULSE 88–109; RESP 12–27; TEMP 36.3–36.9; O2SAT 90–97; BMI 65.9; BMI 64.3
--- NOTE | 2022-09-22 16:33 | RAD_ITS ---
STUDY: X-RAY CHEST REASON FOR EXAM: Female, 47 years old. chest pain TECHNIQUE: AP portable COMPARISON: 07/21/2022 FINDINGS: Mild bilateral perihilar interstitial infiltrates or pulmonary edema more pronounced the lower lobes.. There is no demonstrated pleural abnormality. Borderline cardiomegaly.. Normal mediastinum and evi. Normal visualized pulmonary arteries. Normal visualized aortic arch and descending thoracic aorta. Normal visualized thoracic spine. Normal visualized ribs, clavicles, and shoulders. There is no demonstrated abnormality of the visualized soft tissue structures of the upper abdomen. RAD/Chest 1 View (Portable) IMPRESSION: Mild bilateral perihilar interstitial infiltrate or pulmonary edema. Electronically Signed: Vinicio Graham MD at 17:08 EDT ,
--- NOTE | 2022-09-22 16:33 | EKG12_ITS ---
Test Reason : CP Blood Pressure : / mmHG Vent. Rate : 109 BPM Atrial Rate : 109 BPM P-R Int : 148 ms QRS Dur : 082 ms QT Int : 340 ms P-R-T Axes : 027 -12 077 degrees QTc Int : 457 ms Sinus tachycardia Otherwise normal ECG Confirmed by HASMUKH LORA, LILIANA ([id number]), graphics editor DANIELE MALDONADO ([id number]) on 09/23/2022 9:52:33 AM Referred By: [email or web address] Confirmed By:LILIANA NOE MD
--- NOTE | 2022-09-22 16:43 | EDS_ITS ---
HPI History of Present Illness Chief Complaint: Shortness of Breath Narrative Narrative: 47-year-old female with history of CHF, hypoxic respiratory failure presenting with shortness of breath and chest pain. Patient states that she started having a chest heaviness which has been constant since last evening. She has been a little bit short of breath for a couple of days. She states that she felt a little off yesterday. She did not test her pulse ox till today and it was in the 70s before coming from home. Patient states that she does have some intermittent stabbing pain in the center of her chest. Patient also reports that she is on Eliquis and has not missed any doses. Patient does not have a fever and does have a cough which she states there is a little bit of sputum coming up. Patient states that she does have a history of pneumonia in the past and has not been hospitalized for this. Patient states that she was told she does not have COPD/asthma and passed her walk test with pulmonology. She does have a history of wheezing however. Per her 6-minute walk she is to use 4 L with ambulation. On her baseline oxygen on arrival she was tachypneic and hypoxic at 79%. Patient states that her legs are always swollen and was nothing significantly new about them. [facility] Medical History Abscess Abscess of vulva KERRY (acute kidney injury) Anxiety BiPAP (biphasic positive airway pressure) dependence Chronic diastolic (congestive) heart failure Chronic respiratory failure with hypoxia Contusion of knee, right COPD (chronic obstructive pulmonary disease) Depression Diabetes Dyspnea on exertion Essential hypertension GERD (gastroesophageal reflux disease) Hidradenitis History of left heart catheterization (LHC) (~01/05/19) History of MRSA infection Hyperglycemia due to type 2 diabetes mellitus Hyperlipidemia Hypertension Morbid obesity Necrotizing soft tissue infection Non-healing open wound of left groin NSTEMI (non-ST elevated myocardial infarction) 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 Old myocardial infarction On home oxygen therapy Open wound of vulva with complication Opiate overdose Pulmonary embolism Respiratory failure with hypoxia Restrictive lung disease secondary to obesity Sleep apnea Smoker Soft tissue abscess of inguinal region Tobacco abuse Type 2 diabetes mellitus Home Medications multivit-iron 18 mg-folic acid 400 mcg-calcium 500 mg-minerals tablet 1 ea PO DAILY supplement 03/26/17 [History Last Taken 01/15/22] gabapentin 300 mg capsule 800 mg PO TID nerve pain 05/29/17 [History Last Taken 01/15/22] omeprazole 40 mg capsule,delayed release 40 mg PO DAILY GERD 12/15/18 [History Last Taken 01/15/22] loratadine 10 mg tablet 10 mg PO DAILY PRN Allergies 03/01/20 [History Last Taken 01/15/22] apixaban 5 mg tablet 5 mg PO BID blood thinner 08/20/20 [History Last Taken 01/15/22] diltiazem HCl 120 mg capsule,extended release 24 hr 120 mg PO DAILY heart rate 08/20/20 [History Last Taken 01/15/22] insulin lispro 100 unit/mL subcutaneous pen 48 unit subcut TIDAC diabetes 03/26/21 [History Last Taken 01/15/22] ipratropium 0.5 mg-albuterol 3 mg (2.5 mg base)/3 mL nebulization soln 3 ml inhalation Q4H PRN Shortness Of Breath Or Wheezing 03/26/21 [History Last Taken 01/15/22] lisinopril 10 mg tablet 10 mg PO DAILY blood pressure 03/26/21 [History Last T aken 01/15/22] metformin 500 mg tablet,extended release 24 hr 2,000 mg PO DAILY diabetes 03/26/21 [History Last Taken 01/15/22] metoprolol succinate 25 mg tablet,extended release 24 hr 25 mg PO DAILY blood pressure 03/26/21 [History Last Taken 01/15/22] dulaglutide 4.5 mg/0.5 mL subcutaneous pen injector (Trulicity) 4.5 mg subcut WE DM 01/15/22 [History Last Taken 01/09/22] insulin degludec 200 unit/mL (3 mL) subcutaneous pen (Tresiba FlexTouch U-200 insulin) 92 unit subcut BID DM 01/15/22 [History Last Taken 01/15/22] atorvastatin 80 mg tablet 80 mg PO QHS 02/07/22 [History Last Taken Unknown] potassium chloride 20 mEq tablet,extended release 20 meq PO BID #60 tabs 07/25/22 [Rx Last Taken Unknown] furosemide 40 mg tablet 80 mg PO BID diuretic 09/22/22 [History Last Taken Unknown] Allergy/AdvReac Type Severity Reaction Status Date / Time cyclobenzaprine HCl Allergy Hives Verified 09/22/22 16:28 [From Flexeril] venlafaxine [From Effexor] AdvReac Severe unknown Verified 09/22/22 16:28 Family History Father CVA (cerebral vascular accident) Heart disease Diabetes Mother Thyroid disorder Surgical History H/O arthroscopic knee surgery History of delivery History of cholecystectomy Social History Smoking Status: Current every day smoker tobacco type: cigarettes how long ago did patient quit smokin PPD smoker second hand exposure: Yes alcohol intake: never substance use type: does not use caffeine: Yes Type: carbonated beverages Number of servings: 1 and coffee Number of servings: 1 ROS ROS ED Constitutional Constitutional ED: Denies chills or fever(s) Eyes Eyes: Denies change in vision ENT ENT ED: Denies rhinorrhea or sore throat Cardiovascular Cardiovascular: Reports chest pain and racing heartbeat Respiratory/Chest Respiratory/Chest: Reports cough, dyspnea and dyspnea on exertion Gastrointestinal Gastrointestinal: Denies abdominal pain, melena or nausea Genitourinary Genitourinary ED: Denies dysuria or hematuria Musculoskeletal Musculoskeletal: Denies arthralgias or myalgias Integumentary Denies abscess Neurologic Neurologic: Denies headache(s) or paresthesias Psychiatric Psychiatric: Denies anxiety or depression EXAM Physical Exam Const Vital Signs: 09/22/22 16:28 09/22/22 16:35 09/22/22 16:35 Temperature 97.7 F L Temperature Source Temporal Pulse Rate 109 H 107 H Respiratory Rate 20 H 27 H Respiratory Effort Respiratory Pattern Blood Pressure 167/69 H 151/68 H Blood Pressure Mean 101 95 Pulse Ox 97 96 97 Oxygen Delivery Method Non-Rebreather Room Air Non-Rebreather Oxygen Flow Rate (L/min) 15 Fraction of Inspired Oxygen (FIO2) 09/22/22 16:38 09/22/22 16:39 09/22/22 16:54 Temperature Temperature Source Pulse Rate 101 H Respiratory Rate 20 H Respiratory Effort Normal Non-Labored Respiratory Pattern Tachypnea Blood Pressure Blood Pressure Mean Pulse Ox 92 Oxygen Delivery Method Venturi Mask Oxygen Flow Rate (L/min) 6 Fraction of Inspired Oxygen (FIO2) 31 Positive well nourished General Appearance ED: Negative for pallor HEENT Reports moist mucous membranes atraumatic Eyes PERRL and EOMs intact bilaterally General Eye ED: Negative for pale conjunctiva or scleral icterus Resp normal respiratory effort and clear to auscultation bilaterally Auscultation: Negative for rales, rhonchi or wheezes Cardio regular rate and regular rhythm Neuro oriented x3 and CN's II-XII intact bilaterally Sensorium / Orientation: alert Psych mental status grossly normal Skin no wounds General Skin Exam: Negative for jaundice or pallor Sepsis Attestation Sepsis Alert: Yes Sepsis Attestation: Agree w/Sepsis Date exam was performed: 09/22/22 Possible Source of Sepsis: Pulmonary and Genitourinary MDM MDM MDM Narrative Medical decision making narrative: Patient presented with hypoxia, tachycardia, tachypnea. She is been short of breath for a day or 2. She checked her pulse ox today and noted that she was in the 70s at home. She supposed to wear a max of 4 L with ambulation for her 6- minute walk. She also reports chest pain which has been constant since last evening which she describes as a pressure across her chest with intermittent episodes of sharp stabbing which come and go. Patient anticoagulated on Eliquis. She is not missed any doses. She denies fever but does state she is coughing and producing sputum. No chills, body aches. No nausea or vomiting. Because of her abnormal vital signs septic work-up was started. Patient was pancultured. I will hold IV fluids for now given that she has a history of congestive heart failure. Last echocardiogram performed in 2019 showed an EF of 50%. Patient initially on 15 L nonrebreather but was weaned back to 6 L on a Venturi mask. She currently looks and feels better. Nursing staff states that she was purple on arrival. Her skin is now pink and warm. She is not any respiratory distress. She speaking in full sentences. Patient was wheezing on examination so I gave her Solu-Medrol and some breathing treatments. Patient is a diabetic and states that her blood sugars have been around 100. Patient did improve with breathing treatments. Chest x-ray on my interpretation looks more like pulmonary edema. Radiologist interprets this as infiltrates versus pulmonary edema. Patient does have a white blood cell count of 15.0 today. Hemoglobin hematocrit are stable. Platelets are normal. Creatinine mildly elevated at 1.38. Her previous creatinine in March was 1.09. Glucose slightly elevated at 307 without anion gap. Lactic acid slightly elevated at 3.0. High- sensitivity troponin is 25. BNP low at 5.2. Coagulation studies unremarkable. Urinalysis does show positive nitrites with 25 leukocyte esterase, 10-25 white blood cells without any squamous epithelial cells. There is 3+ bacteria. Patient covered for pulmonary source given the hypoxic respiratory failure with Ceftin and azithromycin as she has been coughing and states she is producing sputum. This is also because of her urine. Again patient is pancultured. Given the hypoxia I think she will benefit from admission. Impression: 1. Hypoxic respiratory failure 2. Sepsis 3. UTI 4. Lactic acidosis 5. Elevated creatinine Lab Data Attestation: I reviewed the patient's lab results. Labs: Laboratory Results - last 24 hr 09/22/22 09/22/22 09/22/22 16:40 16:40 16:40 WBC 15.0 H RBC 4.47 Hgb 12.4 Hct 42.2 MCV 94.4 MCH 27.7 MCHC 29.4 L RDW Std Deviation 53.4 H RDW Coeff of Darrion 15.9 H Plt Count 305 MPV 9.9 Immature Gran % (Auto) 1.300 H Neut % (Auto) 75.3 H Lymph % (Auto) 16.0 L Sevier % (Auto) 5.1 Eos % (Auto) 1.7 Baso % (Auto) 0.6 Absolute Neuts (auto) 11.3 H Absolute Lymphs (auto) 2.39 Nucleated RBC % 0.3 PT INR Sodium 135 L Potassium 4.1 Chloride 92 L Carbon Dioxide 34.0 H Anion Gap 9 BUN 31 H Creatinine 1.38 H Estim Creat Clear Calc 46.32 Est GFR (MDRD) Af Amer 53 L Est GFR (MDRD) Non-Af 44 L BUN/Creatinine Ratio 22.5 H Glucose 307 H Lactic Acid Calcium 8.8 Troponin I High Sens 25 B-Natriuretic Peptide 5.2 09/22/22 09/22/22 16:51 16:58 WBC RBC Hgb Hct MCV MCH MCHC RDW Std Deviation RDW Coeff of Darrion Plt Count MPV Immature Gran % (Auto) Neut % (Auto) Lymph % (Auto) Sevier % (Auto) Eos % (Auto) Baso % (Auto) Absolute Neuts (auto) Absolute Lymphs (auto) Nucleated RBC % PT 15.3 H INR 1.2 Sodium Potassium Chloride Carbon Dioxide Anion Gap BUN Creatinine Estim Creat Clear Calc Est GFR (MDRD) Af Amer Est GFR (MDRD) Non-Af BUN/Creatinine Ratio Glucose Lactic Acid 3.0 H* Calcium Troponin I High Sens B-Natriuretic Peptide Radiography Diagnostic Testing: Clinical Impression(s) from Imaging Studies Chest X-Ray 09/22/22 16:33 IMPRESSION: Mild bilateral perihilar interstitial infiltrate or pulmonary edema. Electronically Signed: Vinicio Graham MD at 17:08 EDT , Discharge Plan Triage Chief Complaint: Shortness of Breath ED Provider: Rupert Pitts Dx/Rx/DC Orders Primary Care Provider: Tino Oreilly
[2022-09-22] MEDS: Albuterol 2.5 MG/3 ML VIAL.NEB. INHALATION (16:51)
[2022-09-22] MEDS: MethylPREDNISolone 125 MG/2 ML Vial IV (16:51)
[2022-09-22] MEDS: Ipratropium/Albuterol Sulfate 3 ML AMPUL.NEB INHALATION ×2 (16:51→23:34)
[2022-09-22 16:52] LABS: Absolute Lymphocyte Count 2.39 X10^3/uL (0.83-4.51); Absolute Neutrophil Count 11.3 X10^3/uL (2.0-7.7); Basophil# 0.09 X10^3/uL; Basophil% 0.6 % (0-1); Eosinophil# 0.26 X10^3/uL; Eosinophils% 1.7 % (0-5); Hematocrit 42.2 % (37-47); Hemoglobin 12.4 g/dL (12.0-15.0); Lymphocyte # 2.39 X10^3/ul (0.83-4.51); Mean Corp Hgb Conc 29.4 g/dL (32-36); Mean Corpuscular Hgb 27.7 pg (27.0-32.0); Mean Corpuscular Volume 94.4 fL (81-99); Mean Platelet Vol. 9.9 fl (6.2-12.0); Monocyte# 0.76 X10^3/uL; Monocyte% 5.1 % (0-10); NRBC Flagged by Analyzer 0.3 % (0-5); Neutrophil # 11.28 X10^3/uL (2.7-7.7); Neutrophil % 75.3 % (47-70); Platelet Count 305 K/mm3 (150-450); RBC Distribution Width CV 15.9 % (11.6-14.6); RBC Distribution Width SD 53.4 fl (35.1-43.9); Red Blood Count 4.47 M/mm3 (4.2-5.4)
[2022-09-22 17:09] LABS: Anion Gap 9 (5-15); BUN 31 mg/dL (7-18); BUN/Creat Ratio 22.5 RATIO (10-20); Calcium,Total 8.8 mg/dL (8.5-10.1); Chloride 92 mmol/L (98-107); Creatinine, Serum 1.38 mg/dL (0.55-1.02); EST Glomerular Filtration Rate 44 mL/min (>60); Est Glom Filt Rate - Afr Amer 53 mL/min (>60); Estimated Creatinine Clearance 46.32 ml/min; Glucose 307 mg/dL (74-106); Potassium 4.1 mmol/L (3.5-5.1); Sodium Level 135 mmol/L (136-145); Troponin-I HS (w/2H Reflex) 25 pg/mL (3.0-54.0)
[2022-09-22 17:16] LABS: BNP,B-Type NATRIURETIC PEPTIDE 5.2 pg/mL (0-100)
[2022-09-22 18:04] LABS: International Normalized Ratio 1.2; Prothrombin Time (Protime)PT. 15.3 SECONDS (11.7-14.9)
--- NOTE | 2022-09-22 18:27 | HP.PCM.HOS_ITS ---
[facility] - General General Date of Admission: 09/22/22 Date of Service: 09/22/22 Chief Complaint: Shortness of breath progressive worsening for 4 days. Increased overall body swelling and chest pressure. HPI Narrative MACARIO OVERTON, is a 47 F with multiple comorbidities admission below including chronic HFpEF came to ED for worsening shortness of breath for about 4 days. Patient chronically on 3 L of oxygen 24/7, increased 4 L on exertion. She also uses CPAP at night. She follows in pulmonary clinic, last seen on February 07, 2022 by Nelly Morales. Patient does not check her weight but she feels she is swollen and feels chest congestion. She describes chest pain as chest pressure and congestion mainly right-sided without radiation to arms back, jaws or neck. First troponin negative. Twelve-lead EKG sinus tachycardia 109 [id number], QTC 457 ms. Previous EKG on March 31, 2022 was similar but sinus rhythm 95 bpm. Patient also has cough, worse than her normal baseline. She described as severe, in paroxysms lasting for about one 1 to 2-minute Carloz with shortness of breath and greenish-yellowish sputum. No fever or chills. She was seen by PCP about a month ago for possible CHF exacerbation and was told to increase furosemide from 80 mg to 120 mg twice daily for 3 days and then back to baseline. Her pulse ox at at home was in 70s before coming here. She has chronic history of wheezing. In ED, triage vitals shows he was tachypneic and hypoxic at 79% and was put on nonrebreather. Currently she is on Ventimask 6 L/min. Chest x-ray individually reviewed and shows pulmonary venous congestion and bibasilar atelectasis but no consolidation. Patient given IV ceftriaxone, DuoNeb and Solu-Medrol and is being admitted. [facility] Medical History Abscess Abscess of vulva KERRY (acute kidney injury) Anxiety BiPAP (biphasic positive airway pressure) dependence Chronic diastolic (congestive) heart failure Chronic respiratory failure with hypoxia Contusion of knee, right COPD (chronic obstructive pulmonary disease) Depression Diabetes Dyspnea on exertion Essential hypertension GERD (gastroesophageal reflux disease) Hidradenitis History of left heart catheterization (LHC) (~01/05/19) History of MRSA infection Hyperglycemia due to type 2 diabetes mellitus Hyperlipidemia Hypertension Morbid obesity Necrotizing soft tissue infection Non-healing open wound of left groin NSTEMI (non-ST elevated myocardial infarction) 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 Old myocardial infarction On home oxygen therapy Open wound of vulva with complication Opiate overdose Pulmonary embolism Respiratory failure with hypoxia Restrictive lung disease secondary to obesity Sleep apnea Smoker Soft tissue abscess of inguinal region Tobacco abuse Type 2 diabetes mellitus Home Medications multivit-iron 18 mg-folic acid 400 mcg-calcium 500 mg-minerals tablet 1 ea PO DAILY supplement 03/26/17 [History Last Taken 01/15/22] gabapentin 300 mg capsule 800 mg PO TID nerve pain 05/29/17 [History Last Taken 01/15/22] omeprazole 40 mg capsule,delayed release 40 mg PO DAILY GERD 12/15/18 [History Last Taken 01/15/22] loratadine 10 mg tablet 10 mg PO DAILY PRN Allergies 03/01/20 [History Last Taken 01/15/22] apixaban 5 mg tablet 5 mg PO BID blood thinner 08/20/20 [History Last Taken 01/15/22] diltiazem HCl 120 mg capsule,extended release 24 hr 120 mg PO DAILY heart rate 08/20/20 [History Last Taken 01/15/22] insulin lispro 100 unit/mL subcutaneous pen 48 unit subcut TIDAC diabetes 03/26/21 [History Last Taken 01/15/22] ipratropium 0.5 mg-albuterol 3 mg (2.5 mg base)/3 mL nebulization soln 3 ml inhalation Q4H PRN Shortness Of Breath Or Wheezing 03/26/21 [History Last Taken 01/15/22] lisinopril 10 mg tablet 10 mg PO DAILY blood pressure 03/26/21 [History Last Taken 01/15/22] metformin 500 mg tablet,extended release 24 hr 2,000 mg PO DAILY diabetes 03/26/21 [History Last Taken 01/15/22] metoprolol succinate 25 mg tablet,extended release 24 hr 25 mg PO DAILY blood pressure 03/26/21 [History Last Taken 01/15/22] dulaglutide 4.5 mg/0.5 mL subcutaneous pen injector (Trulicity) 4.5 mg subcut WE DM 01/15/22 [History Last Taken 01/09/22] insulin degludec 200 unit/mL (3 mL) subcutaneous pen (Tresiba FlexTouch U-200 insulin) 92 unit subcut BID DM 01/15/22 [History Last Taken 01/15/22] atorvastatin 80 mg tablet 80 mg PO QHS 02/07/22 [History Last Taken Unknown] potassium chloride 20 mEq tablet,extended release 20 meq PO BID #60 tabs 07/25/22 [Rx Last Taken Unknown] furosemide 40 mg tablet 80 mg PO BID diuretic 09/22/22 [History Last Taken Unknown] Allergy/AdvReac Type Severity Reaction Status Date / Time cyclobenzaprine HCl Allergy Hives Verified 09/22/22 16:28 [From Flexeril] venlafaxine [From Effexor] AdvReac Severe unknown Verified 09/22/22 16:28 Family History Father CVA (cerebral vascular accident) Heart disease Diabetes Mother Thyroid disorder Surgical History H/O arthroscopic knee surgery History of delivery History of cholecystectomy Social History Smoking Status: Current every day smoker tobacco type: cigarettes how long ago did patient quit smokin PPD smoker second hand exposure: Yes alcohol intake: never substance use type: does not use caffeine: Yes Type: carbonated beverages Number of servings: 1 and coffee Number of servings: 1 ROS ROS Narrative Constitutional: Reports fatigue and weakness. Shortness of breath at rest. Very obese HEENT: Reports systems reviewed and no addt'l complaints, except as documented Respiratory/Chest: As described in HPI Gastrointestinal: Denies coffee ground emesis, hematemesis or vomiting. Genitourinary: Denies burning urination or new urinary tract symptoms Musculoskeletal: Lower extremity swelling. Reports joint pain and limited range of motion Neurologic: Denies seizure-like activity skin: Redness of both lower legs. No pain in legs. Endocrinology: DM type II. Reports systems reviewed and no addt'l complaints, except as documented Hematologic/Lymphatic: Reports systems reviewed and no addt'l complaints, except as documented Rest 14 ROS are negative except as mentioned in HPI Vital Signs Vital Signs Vital Signs: 09/22/22 16:28 09/22/22 16:35 09/22/22 16:35 Temperature 97.7 F L Temperature Source Temporal Pulse Rate 109 H 107 H Respiratory Rate 20 H 27 H Respiratory Effort Respiratory Pattern Blood Pressure 167/69 H 151/68 H Blood Pressure Mean 101 95 Pulse Ox 97 96 97 Oxygen Delivery Method Non-Rebreather Room Air Non-Rebreather Oxygen Flow Rate (L/min) 15 Fraction of Inspired Oxygen (FIO2) 09/22/22 16:38 09/22/22 16:39 09/22/22 16:54 Temperature Temperature Source Pulse Rate 101 H Respiratory Rate 20 H Respiratory Effort Normal Non-Labored Respiratory Pattern Tachypnea Blood Pressure Blood Pressure Mean Pulse Ox 92 Oxygen Delivery Method Venturi Mask Oxygen Flow Rate (L/min) 6 Fraction of Inspired Oxygen (FIO2) 31 Weight Weight: 396 lb 6.258 oz Body Mass Index (BMI) 65.9 Physical Exam Narrative General: Alert, Oriented x3, Cooperative, morbidly obese, BMI 66.0 kg/m? HEENT: Atraumatic, PERRLA, EOMI, Normocephalic Oral: No Gingival or Mucosal Lesions/ Ulcerations. Deep oropharyngeal structures could not be visualized Neck: Supple, No JVD, Negative Carotid Bruits Lungs: Dyspnea at rest. Tachypnea and hypoxia. Air entry diminished in bilateral lungs. Bilateral wheezing. Cardiovascular: Sinus tachycardia, Normal S1, Normal S2, No murmurs Abdomen: Bowel Sounds Present, Soft, Non Tender, weak abdomen possible fat abdomen. Ascites could not be ascertained. : No renal angle tenderness. No suprapubic tenderness. Extremities: Bilateral leg pitting 2+ edema, knee level, Capillary Refill Less than 3 Seconds Skin: Bilateral lower leg redness, venous congestion. No tenderness/induration suggestive of cellulitis Musculoskeletal: No Tenderness to Palpation of Joints or Extremities. ROM restricted. Neurological: Cranial nerves II-XII grossly intact, DTR 2+/4 and Symmetrical. Psych/Mental Status: Flat affect. Results Lab / Micro Data Result Diagrams: 09/22/22 16:40 09/22/22 16:40 Labs: Laboratory Results - last 24 hr 09/22/22 16:40: WBC 15.0 H, RBC 4.47, Hgb 12.4, Hct 42.2, MCV 94.4, MCH 27.7, MCHC 29.4 L, RDW Std Deviation 53.4 H, RDW Coeff of Darrion 15.9 H, Plt Count 305, MPV 9.9, Immature Gran % (Auto) 1.300 H, Neut % (Auto) 75.3 H, Lymph % (Auto) 16.0 L, [place] % (Auto) 5.1, Eos % (Auto) 1.7, Baso % (Auto) 0.6, Absolute Neuts (auto) 11.3 H, Absolute Lymphs (auto) 2.39, Nucleated RBC % 0.3 09/22/22 16:40: Sodium 135 L, Potassium 4.1, Chloride 92 L, Carbon Dioxide 34.0 H, Anion Gap 9, BUN 31 H, Creatinine 1.38 H, Estim Creat Clear Calc 46.32, Est GFR (MDRD) Af Amer 53 L, Est GFR (MDRD) Non-Af 44 L, BUN/Creatinine Ratio 22.5 H , Glucose 307 H, Calcium 8.8, Troponin I High Sens 25 09/22/22 16:40: B-Natriuretic Peptide 5.2 09/22/22 16:51: Lactic Acid 3.0 H* 09/22/22 16:58: PT 15.3 H, INR 1.2 Micro: Microbiology 09/22/22 16:40 Nasal Secretion SARS-CoV-2 & FLU Antigen (Rapid) - Final Radiology Impression Chest X-Ray 09/22/22 16:33 IMPRESSION: Mild bilateral perihilar interstitial infiltrate or pulmonary edema. Electronically Signed: Vinicio Graham MD at 17:08 EDT Reading Location ID and State: [facility] / [place] , Service support , Assessment & Plan Assessment/Plan (1) Acute and chronic respiratory failure with hypoxia: (2) Acute on chronic heart failure with normal ejection fraction: PLAN: Plan This is 47-year-old female with history of multiple admissions and multiple comorbidities is being admitted with acute on chronic shortness of breath with acute on chronic hypoxic respiratory failure. 1 Acute on chronic respiratory failure with hypoxia: Patient is being admitted in PCU. Patient has history of obstructive sleep apnea/LOGAN. Patient has pulmonary exercise test which showed she which shows she requires 4 L on exertion. PFT on January 2019 showed moderate restrictive ventilatory impairment with a symmetric reduction in DLCO. Oxygen therapy CPAP ordered. She will need repeat PFT on baseline 2. Clinically possible pneumonia with suspicion of possible COPD/asthmatic exacerbation: Chest x-ray does not show acute consolidation but patient has symptoms of worsening of cough, tachypnea, hypoxia and sputum production. Started on IV ceftriaxone and Zithromax in ED will continue it. IV Solu-Medrol 40 mg every 8 hourly, bronchodilator, DuoNeb every 4 hourly, Tessalon Perles, Mucinex D, incentive spirometry and Pep. Patient has elevated leukocytosis, neutrophils 75%, lymphocyte 16%. Lactic acid 3.0 but not I do not think patient has sepsis. BP is elevated. Lactic acidosis may be due to hypoxia/CHF with poor peripheral perfusion. Patient does not have acute sepsis-related organ dysfunction. She was last admitted in January 2022 for similar condition acute on chronic respiratory failure with hypoxia and pneumonia. Patient is vaccinated with COVID-19 with booster. 3.? Acute on chronic heart failure with preserved ejection fraction: Furosemide 40 mg IV every 8 hourly and then titrate the dose as guided by patient hemodynamics, kidney function and electrolytes. Heart failure core measures including intake and output, fluid restriction less than 1500 mL, daily weight monitoring, kidney and electrolytes monitoring. Echocardiogram January 2020 d emonstrated an EF of 55%.? BNP falsely low due to morbid obesity 4.? LOGAN/obesity hypoventilation-on BiPAP nightly.? Patient follows Dr. Dumont. 5. Type 2 diabetes mellitus, with hyperglycemia: Glucose 308 in BMP. A1c ordered for tomorrow a.m. Last hemoglobin A1c 9.5% in January 2022 A1c ordered for tomorrow a.m.? Accu-Chek before meals and at bedtime coverage Humalog sliding scale.Patient on a scheduled long-acting insulin and Humalog insulin at home. Long-acting insulin changed to our hospital Lantus formulary but home dose of Humalog continued.Hold Trulicity and metformin. 6. History of PE-on Eliquis 5 g twice daily. Continued 7.? Mild KERRY probably heart failure exacerbation/prerenal: Patient baseline creatinine is around 1.0. Elevated BUN/creatinine 31/1.38. Monitor kidney fun ction as likely to go up on diuretic. Hold HCTZ and lisinopril.? Cardizem and metoprolol continued with holding parameters. 8. Hyperlipidemia-continue statin. 9. Depression-patient not on fluoxetine 10. GERD-continue PPI. 11. Morbid obesity-BMI 64.3 kg/m?. Patient does not check her weight at home. Monitor weight daily 12. Tobacco dependence-patient is still smokes about a pack per day with history of relapse and remission. Encouraged cessation. She said I am done with smoking on nicotine patch Total time of the visit including total time spent in counseling or coordination of care, (more than 50% of the total time, spent in obtaining medical information from nurses and other ancillary care providers,explaining to the patient about labs, imaging, diagnosis and management of active complex medical conditions), medical record review, review of labs and imaging is 45 minutes. Living will/advanced directive/end of life care: Patient does not have living will or advanced directive.? Patient does not have any power of contract attorney for health. Her daughter is next to kin.? After discussion of benefits/risks procedures involved with? full code, DNR CC arrest and DNR CC, the patient opted for full code. Patient? does want artificial life support including intubation, tube feed, ventilator and/chest compression, central venous catheter, vasopressor and DC shock if needed ?? Total time spent in [id number] encounter in discussion of advanced directive 16 minutes. Microbiology Past 72 Hours 09/22/22 16:40 Nasal Secretion SARS-CoV-2 & FLU Antigen (Rapid) - Final Laboratory Results 09/22/22 16:40: WBC 15.0 H, RBC 4.47, Hgb 12.4, Hct 42.2, MCV 94.4, MCH 27.7, MCHC 29.4 L, RDW Std Deviation 53.4 H, RDW Coeff of Darrion 15.9 H, Plt Count 305, MPV 9.9, Immature Gran % (Auto) 1.300 H, Neut % (Auto) 75.3 H, Lymph % (Auto) 16.0 L, [place] % (Auto) 5.1, Eos % (Auto) 1.7, Baso % (Auto) 0.6, Absolute Neuts (auto) 11.3 H, Absolute Lymphs (auto) 2.39, Nucleated RBC % 0.3 09/22/22 16:40: Sodium 135 L, Potassium 4.1, Chloride 92 L, Carbon Dioxide 34.0 H, Anion Gap 9, BUN 31 H, Creatinine 1.38 H, Estim Creat Clear Calc 46.32, Est GFR (MDRD) Af Amer 53 L, Est GFR (MDRD) Non-Af 44 L, BUN/Creatinine Ratio 22.5 H , Glucose 307 H, Calcium 8.8, Troponin I High Sens 25 09/22/22 16:40: B-Natriuretic Peptide 5.2 09/22/22 16:51: Lactic Acid 3.0 H* 09/22/22 16:58: PT 15.3 H, INR 1.2 09/22/22 18:21: Urine Color Straw, Urine Clarity Clear, Urine pH 6.0, Ur Specific [place] 1.010, Urine Protein Negative, Urine Glucose (UA) 1000 H, Urine Ketones Negative, Urine Occult Blood Negative, Urine Nitrite Positive H, Urine Bilirubin Negative, Urine Urobilinogen Normal, Ur Leukocyte Esterase 25 H, Urine RBC 0 SEEN, Urine WBC 10-25 SEEN, Ur Squamous Epith Cells 0 SEEN, Urine Bacteria 3+, Urine Mucus 0 SEEN 09/22/22 19:09: Troponin I High Sens 26 Charges/Coding Visit Charges Inpatient E&M: 16783 Init Hosp L3 Procedures Hospitalists Procedures: 92499 Advncd Care Plan 30 Min
[2022-09-22 18:34] LABS: Mucous, Urine 0 SEEN /hpf (<or=2+); Red Blood Cells-Urine 0 SEEN /hpf (0-5); Squamous Epithelial Cells - UA 0 SEEN /hpf (5-10)
[2022-09-22 18:38] LABS: Color, Urine Straw (Yellow); Glucose, Dipstick 1000 mg/dl (Normal); Ketone-Dipstick Negative (Negative); Leukocyte Esterase-Dipstick 25 /ul (Negative); Nitrite-Dipstick Positive (Negative); Occult Blood-Urine Negative /ul (Negative); Protein-Dipstick Negative (Negative); Urine Bilirubin Dipstick Negative (Negative); Urine Clarity Clear (Clear); Urine Urobilinogen Normal (Normal)
[2022-09-22 18:42] LABS: Reflex Troponin-HS? (from REC) Y
[2022-09-22 18:48] LABS: Bacteria 3+ /hpf (None Seen); White Blood Cells 10-25 SEEN /hpf (0-5)
--- NOTE | 2022-09-22 19:03 | ED.RN ---
called pharmacy to inform that pt is on way to PCU and to send antibiotics there.
[2022-09-22 19:35] LABS: Troponin-I HS 26 pg/mL (3.0-54.0)
[2022-09-22 20:23] LABS: AST(SGOT) 21 U/L (15-37); Alanine Aminotransfer ALT/SGPT 29 U/L (13-56); Albumin, Serum 3.4 g/dL (3.2-5.0); Alkaline Phosphatase 66 U/L (45-117); Bilirubin, Direct 0.15 mg/dL (0.00-0.30); Globulin 4.1 g/dL (2.2-4.2); Magnesium 1.8 mg/dL (1.6-2.6); Protein, Total 7.5 g/dL (6.4-8.2)
[2022-09-22 20:58] LABS: Reflex Lactate? Y
[2022-09-22 21:15] LABS: Allen Test Positive; Base Excess 8 mmol/L (-2 to +2); Bicarbonate 34.2 mmol/L (22-26); Blood Gas Specimen Type ART; FI02 50; O2 Delivery Device Venti Mask; PO2 44 mmHG (75-100); SITE L Radial; SO2 75 % (95-99); Total Carbon Dioxide 36 mmol/L; pCO2 65.9 mmHg (35-45); pH 7.32 (7.35-7.45)
[2022-09-22 21:58] LABS: Lactic Acid 2.5 mmol/L (0.4-1.9)
[2022-09-22] MEDS: Azithromycin 250 MG Tablet 500 MG PO (22:14)
[2022-09-22] MEDS: Gabapentin 400 MG Capsule 800 MG PO (22:14)
[2022-09-22] MEDS: guaiFENesin 1,200 MG Tablet 1200 MG PO (22:14)
[2022-09-22] MEDS: APIXABAN 5 MG TABLET PO (22:15)
[2022-09-22] MEDS: Senna/Docusate Sodium 1 Tablet 2 TABLET PO (22:15)
[2022-09-22] MEDS: Atorvastatin Calcium 80 MG Tablet PO (22:15)
[2022-09-22] MEDS: 0.9% Saline Lock 10 ML Syringe IV (22:17)
[2022-09-22] MEDS: Furosemide 40 MG/4 ML Vial IV (22:28)
[2022-09-22] MEDS: Insulin Lispro 100 UNIT/ML INSULN.PEN SC (22:48)
[2022-09-22] MEDS: Insulin Glargine-YFGN 100 UNIT/ML Pen 80 UNIT SC (22:49)
[2022-09-22 23:10] LABS: Bedside Glucose 349 mg/dL (74-106)
[2022-09-23] VITALS (21 sets, daily range): BP systolic 119–154; BP diastolic 61–84; PULSE 85–106; RESP 12–21; TEMP 36.3–36.8; O2SAT 78–99
[2022-09-23 00:38] LABS: Troponin-I HS 25 pg/mL (3.0-54.0)
[2022-09-23] MEDS: Ipratropium/Albuterol Sulfate 3 ML AMPUL.NEB INHALATION ×6 (03:25→23:17)
[2022-09-23] MEDS: Nystatin Powder 15gm Bottle 1 APPLIC TOPICAL ×3 (05:28→22:01)
[2022-09-23] MEDS: Gabapentin 400 MG Capsule 800 MG PO ×3 (05:28→22:02)
[2022-09-23] MEDS: Furosemide 40 MG/4 ML Vial IV ×3 (05:29→22:54)
[2022-09-23] MEDS: 0.9% Saline Lock 10 ML Syringe IV ×3 (05:30→22:54)
[2022-09-23 06:32] LABS: Absolute Lymphocyte Count 0.92 X10^3/uL (0.83-4.51); Absolute Neutrophil Count 10.3 X10^3/uL (2.0-7.7); Basophil# 0.05 X10^3/uL; Basophil% 0.4 % (0-1); Eosinophil# 0.01 X10^3/uL; Eosinophils% 0.1 % (0-5); Hematocrit 41.5 % (37-47); Hemoglobin 12.4 g/dL (12.0-15.0); Lymphocyte # 0.92 X10^3/ul (0.83-4.51); Lymphocyte % 7.9 % (19-41); Mean Corp Hgb Conc 29.9 g/dL (32-36); Mean Corpuscular Hgb 27.5 pg (27.0-32.0); Mean Platelet Vol. 10.3 fl (6.2-12.0); Monocyte# 0.22 X10^3/uL; Monocyte% 1.9 % (0-10); NRBC Flagged by Analyzer 0.3 % (0-5); Neutrophil # 10.28 X10^3/uL (2.7-7.7); Neutrophil % 88.1 % (47-70); Platelet Count 286 K/mm3 (150-450); RBC Distribution Width CV 15.6 % (11.6-14.6); RBC Distribution Width SD 51.2 fl (35.1-43.9); Red Blood Count 4.51 M/mm3 (4.2-5.4); White Blood Count 11.7 K/mm3 (4.4-11.0)
[2022-09-23 06:48] LABS: Anion Gap 9 (5-15); BUN 31 mg/dL (7-18); BUN/Creat Ratio 28.4 RATIO (10-20); Calcium,Total 8.8 mg/dL (8.5-10.1); Chloride 94 mmol/L (98-107); Cholesterol 113 mg/dL (200); Creatinine, Serum 1.09 mg/dL (0.55-1.02); EST Glomerular Filtration Rate 58 mL/min (>60); Est Glom Filt Rate - Afr Amer 70 mL/min (>60); Estimated Creatinine Clearance 58.65 ml/min; Glucose 342 mg/dL (74-106); High Density Lipoprotein 33 mg/dL; Potassium 3.9 mmol/L (3.5-5.1); Sodium Level 136 mmol/L (136-145); Triglycerides 123 mg/dL; Very Low Density Lipoprotein 25 mg/dL (5-40)
[2022-09-23] MEDS: Insulin Lispro 100 UNIT/ML INSULN.PEN 48 UNIT SC ×2 (08:10→11:34)
[2022-09-23] MEDS: APIXABAN 5 MG TABLET PO ×2 (08:10→21:57)
[2022-09-23] MEDS: Pantoprazole Sodium 40 MG Tablet PO (08:10)
[2022-09-23] MEDS: guaiFENesin 1,200 MG Tablet 1200 MG PO ×2 (08:10→22:01)
[2022-09-23] MEDS: dilTIAZem CD 120 MG Capsule PO (08:10)
[2022-09-23] MEDS: Multivitamins,Ther W-Minerals Tablet 1 TABLET PO (08:10)
[2022-09-23] MEDS: Insulin Lispro 100 UNIT/ML INSULN.PEN SC ×4 (08:11→21:57)
[2022-09-23] MEDS: Metoprolol(XL)Succ 25 MG Tablet PO (08:11)
[2022-09-23] MEDS: Insulin Glargine-YFGN 100 UNIT/ML Pen 80 UNIT SC (08:13)
[2022-09-23 08:40] LABS: Bedside Glucose 443 mg/dL (74-106)
[2022-09-23 10:25] LABS: M R Staph aureus DNA By PCR POSITIVE (Negative); Probe Check PASS
--- NOTE | 2022-09-23 11:50 | PCM.PN.HOSP ---
Subjective Subjective Follow-up on acute on chronic hypoxic respiratory failure/acute on chronic heart failure with preserved EF: Patient was seen and examined. She generally feels improved. She is on 3 L of oxygen. Her blood sugars are however been uncontrolled. Objective Data Objective Data Vital Signs: Vital Signs Temp Pulse Resp BP Pulse Ox O2 Del Method O2 Flow Rate 97.5 F L 106 H 21 H 151/67 H 95 Nasal Cannula 3 09/23/22 05:26 09/23/22 11:16 09/23/22 11:16 09/23/22 08:11 09/23/22 11:16 09/23/22 11:16 09/23/22 11:16 FiO2 31 09/23/22 06:52 Oxygen Flow Rate (L/min) 3 Oxygen Delivery Method Nasal Cannula Weight: 173.7 kg Body Mass Index (BMI) 64.3 Intake & Output: Intake and Output for Last 24 Hours 09/21/22 09/22/22 09/23/22 23:59 23:59 23:59 Intake Total 50 / 100 110 / 110 Balance 50 / 100 110 / 110 Lab / Micro Data Result Diagrams: 09/23/22 05:01 09/23/22 05:01 Labs: Laboratory Results - last 24 hr 09/22/22 16:40: WBC 15.0 H, RBC 4.47, Hgb 12.4, Hct 42.2, MCV 94.4, MCH 27.7, MCHC 29.4 L, RDW Std Deviation 53.4 H, RDW Coeff of Darrion 15.9 H, Plt Count 305, MPV 9.9, Immature Gran % (Auto) 1.300 H, Neut % (Auto) 75.3 H, Lymph % (Auto) 16.0 L, [place] % (Auto) 5.1, Eos % (Auto) 1.7, Baso % (Auto) 0.6, Absolute Neuts (auto) 11.3 H, Absolute Lymphs (auto) 2.39, Nucleated RBC % 0.3 09/22/22 16:40: Sodium 135 L, Potassium 4.1, Chloride 92 L, Carbon Dioxide 34.0 H, Anion Gap 9, BUN 31 H, Creatinine 1.38 H, Estim Creat Clear Calc 46.32, Est GFR (MDRD) Af Amer 53 L, Est GFR (MDRD) Non-Af 44 L, BUN/Creatinine Ratio 22.5 H, Glucose 307 H, Calcium 8.8, Troponin I High Sens 25 09/22/22 16:40: B-Natriuretic Peptide 5.2 09/22/22 16:51: Lactic Acid 3.0 H* 09/22/22 16:58: PT 15.3 H, INR 1.2 09/22/22 18:21: Urine Color Straw, Urine Clarity Clear, Urine pH 6.0, Ur Specific [place] 1.010, Urine Protein Negative, Urine Glucose (UA) 1000 H, Urine Ketones Negative, Urine Occult Blood Negative, Urine Nitrite Positive H, Urine Bilirubin Negative, Urine Urobilinogen Normal, Ur Leukocyte Esterase 25 H, Urine RBC 0 SEEN, Urine WBC 10-25 SEEN, Ur Squamous Epith Cells 0 SEEN, Urine Bacteria 3+, Urine Mucus 0 SEEN 09/22/22 19:09: Troponin I High Sens 26 09/22/22 19:09: Phosphorus 3.0, Magnesium 1.8, Total Bilirubin 0.30, Direct Bilirubin 0.15, AST 21, ALT 29, Alkaline Phosphatase 66, Total Protein 7.5, Albumin 3.4, Globulin 4.1 09/22/22 21:20: Lactic Acid 2.5 H* 09/22/22 22:12: POC Glucose 349 H 09/22/22 23:42: MRSA (PCR) Cancelled 09/23/22 00:00: Troponin I High Sens 25 09/23/22 05:01: WBC 11.7 H, RBC 4.51, Hgb 12.4, Hct 41.5, MCV 92.0, MCH 27.5, MCHC 29.9 L, RDW Std Deviation 51.2 H, RDW Coeff of Darrion 15.6 H, Plt Count 286, MPV 10.3, Immature Gran % (Auto) 1.600 H, Neut % (Auto) 88.1 H, Lymph % (Auto) 7.9 L, [place] % (Auto) 1.9, Eos % (Auto) 0.1, Baso % (Auto) 0.4, Absolute Neuts (auto) 10.3 H, Absolute Lymphs (auto) 0.92, Nucleated RBC % 0.3 09/23/22 05:01: Sodium 136, Potassium 3.9, Chloride 94 L, Carbon Dioxide 33.0 H, Anion Gap 9, BUN 31 H, Creatinine 1.09 H, Estim Creat Clear Calc 58.65, Est GFR (MDRD) Af Amer 70, Est GFR (MDRD) Non-Af 58 L, BUN/Creatinine Ratio 28.4 H, Glucose 342 H, Calcium 8.8, Triglycerides 123, Cholesterol 113, LDL Cholesterol 55, VLDL Cholesterol 25, HDL Cholesterol 33 L 09/23/22 07:55: MRSA (PCR) POSITIVE H 09/23/22 08:03: POC Glucose 443 H Micro: Microbiology 09/22/22 20:50 Mucosa - Nasopharyngeal Respiratory Panel (PCR) - Final 09/22/22 18:21 Urine, Clean Catch Legionella Antigen - Final 09/22/22 18:21 Urine, Clean Catch Streptococcus pneumoniae Antigen (M - Final 09/22/22 16:40 Nasal Secretion SARS-CoV-2 & FLU Antigen (Rapid) - Final ABG Data ABG results: ABG 09/22/22 21:10 Specimen Type ART Sample Site L Radial pH 7.32 L Bicarbonate Actual 34.2 H Total CO2 36 Base Excess 8 H O2 Saturation 75 L O2 % 50 ABG pCO2 65.9 H ABG pO2 44 L Meño Test Positive O2 Delivery Device Venti Mask Radiography Diagnostic Testing: Radiology Impression Chest X-Ray 09/22/22 16:33 IMPRESSION: Mild bilateral perihilar interstitial infiltrate or pulmonary edema. Electronically Signed: Vinicio Graham MD at 17:08 EDT , Physical Exam Narrative Physical exam: General: Alert, Oriented x3, Cooperative, morbidly obese, on 3 L of oxygen HEENT: Atraumatic Oral: Moist Mucosa Neck: Supple Lungs: Diminished to auscultation Cardiovascular: HS I+II, regular, no murmurs Abdomen: Bowel Sounds Present, Soft, Non Tender Extremities: Bilateral pedal edema +1 with chronic venous stasis dermatitis Skin: dryness of the skin of the lower extremities, with flakiness noted in the lower extremities Neurological: Grossly intact Psych/Mental Status: Appropriate Assessment & Plan Assessment/Plan (1) Acute on chronic heart failure with normal ejection fraction: (2) Acute and chronic respiratory failure with hypoxia: PLAN: Plan 1. Acute on chronic hypoxic respiratory failure, improved In a patient with underlying history of COPD/obstructive sleep apnea Patient is back to have a 3 to 4 L of oxygen Continue to encourage use of incentive spirometer 2. Acute COPD exacerbation, mildly improved Chest x-ray had showed mild bilateral perihilar interstitial infiltrate or pulmonary edema Respiratory panel is negative Urine Legionella and streptococcal antigen is negative Continue on IV Solu-Medrol, breathing treatments, IV ceftriaxone azithromycin 3.Lactic acidosis secondary to #1, will trend 4. Acute exacerbation of heart failure with preserved EF, EF 55%, Continue on Lasix 40 mg IV every 8h Continue CHF protocol 5. LOGAN on BiPAP 6. Hyperglycemia in a known type II DM, insulin-dependent patient Secondary to use of steroid Increase Lantus to 95 units twice daily, continue with Premeal insulin and insulin sliding scale 7. KERRY, prerenal, in a patient with baseline creatinine less than 1 Creatinine improved to 1.09 from 1.38 We will continue to trend 8. History of PE, on Eliquis 9. Nicotine dependence, continue nicotine patch 10.Hypertension, fairly uncontrolled, continue metoprolol 11. DVT Ppx- on Eliquis Charges/Coding Visit Charges Inpatient E&M: 14294 Subs Hosp L2
[2022-09-23 12:16] LABS: Bedside Glucose 406 mg/dL (74-106)
--- NOTE | 2022-09-23 12:50 | CASEMGMT ---
LORENZO GARCÍA assessment: Face to Face with patient for initial transition planning/care coordination assessment. LORENZO GARCÍA introduced self and role at [facility], pt voices understanding and consents to assessment. Pt is sitting up in chair in no distress on 3L nc. Pt is A/Ox4 and answers all questions appropriately.? Care providers, pharmacy,?and demographics verified. ? Presentation: Pt wears 3L nc at home for 'small lungs'-was 76% on 3L but now 95% on NRB Admitting dx: Acute hypoxic resp failure PCP: Afia Specialists: Tim, pulm; Gabi, cardio; Pt states is trying to get into Bariatric physician at [facility] Preferred Pharmacy: [facility] Insurance: [employer] Prescription Benefit:? [employer] Living Will/HPOA: Pt does not have LW/HPOA and declines AD info. LNOK: Remedios Wallace, mother; Naveed Gordon, sister; Kimber Martins, friend Living Arrangements: Pt lives with niece who helps care for her in mobile home with 5 steps in and states no concerns at home. Pt is independent with ADL's. Transportation: Pt states daughter drives and states no transportation concerns. DME/HHC: Pt has the following DME: [facility], nebulizer, NIV w/ 5L bleed in, and 2L at rest and 4L w/ exertion home oxygen [facility]. Pt states no need for any further DME. Pt states no hx of HHC or SNF in past. Pt states no concerns with going home at time of discharge. Pt is disabled. Pt states still smokes a pack of cigarettes daily but plans to quit. Pt does not drink ETOH. Pt states no further concerns/needs. CM to follow for any further discharge planning/needs. Advised pt to ask for CM if any further questions/concerns/needs arise, voices understanding. Pt Goal: [place] LORENZO GARCÍA
[2022-09-23] MEDS: Ammonium Lactate 225 gm Bottle 1 APPLIC TOPICAL ×2 (13:56→22:00)
[2022-09-23 15:44] LABS: Hemoglobin A1c 8.9 % (3.8-5.6)
[2022-09-23] MEDS: Insulin Lispro 100 UNIT/ML INSULN.PEN 50 UNIT SC (16:42)
[2022-09-23 17:20] LABS: Bedside Glucose 269 mg/dL (74-106)
[2022-09-23] MEDS: Insulin Glargine-YFGN 100 UNIT/ML Pen 95 UNIT SC (21:58)
[2022-09-23] MEDS: Atorvastatin Calcium 80 MG Tablet PO (22:02)
[2022-09-23] MEDS: Senna/Docusate Sodium 1 Tablet 2 TABLET PO (22:02)
[2022-09-24] VITALS (13 sets, daily range): BP systolic 120–142; BP diastolic 51–80; PULSE 85–91; RESP 12–20; TEMP 36.2–36.5; O2SAT 87–96
[2022-09-24 00:31] LABS: Bedside Glucose 340 mg/dL (74-106)
[2022-09-24] MEDS: Ipratropium/Albuterol Sulfate 3 ML AMPUL.NEB INHALATION ×3 (02:59→11:03)
[2022-09-24] MEDS: Nystatin Powder 15gm Bottle 1 APPLIC TOPICAL (05:20)
[2022-09-24] MEDS: Furosemide 40 MG/4 ML Vial IV (05:20)
[2022-09-24] MEDS: Gabapentin 400 MG Capsule 800 MG PO (05:20)
[2022-09-24] MEDS: Ammonium Lactate 225 gm Bottle 1 APPLIC TOPICAL (05:20)
[2022-09-24] MEDS: 0.9% Saline Lock 10 ML Syringe IV (05:21)
[2022-09-24 06:24] LABS: Absolute Lymphocyte Count 1.76 X10^3/uL (0.83-4.51); Absolute Neutrophil Count 12.3 X10^3/uL (2.0-7.7); Basophil# 0.06 X10^3/uL; Basophil% 0.4 % (0-1); Eosinophil# 0.01 X10^3/uL; Eosinophils% 0.1 % (0-5); Hematocrit 41.5 % (37-47); Hemoglobin 12.6 g/dL (12.0-15.0); Lymphocyte # 1.76 X10^3/ul (0.83-4.51); Lymphocyte % 11.7 % (19-41); Mean Corp Hgb Conc 30.4 g/dL (32-36); Mean Corpuscular Hgb 27.8 pg (27.0-32.0); Mean Corpuscular Volume 91.4 fL (81-99); Mean Platelet Vol. 9.9 fl (6.2-12.0); Monocyte# 0.75 X10^3/uL; NRBC Flagged by Analyzer 0.1 % (0-5); Neutrophil # 12.28 X10^3/uL (2.7-7.7); Neutrophil % 81.7 % (47-70); Platelet Count 273 K/mm3 (150-450); RBC Distribution Width CV 15.5 % (11.6-14.6); RBC Distribution Width SD 50.2 fl (35.1-43.9); Red Blood Count 4.54 M/mm3 (4.2-5.4)
[2022-09-24 06:56] LABS: ALB/GLOB Ratio 0.8 RATIO (0.9-2.4); AST(SGOT) 14 U/L (15-37); Alanine Aminotransfer ALT/SGPT 24 U/L (13-56); Albumin, Serum 3.4 g/dL (3.2-5.0); Alkaline Phosphatase 60 U/L (45-117); Anion Gap 5 (5-15); BUN 33 mg/dL (7-18); BUN/Creat Ratio 31.4 RATIO (10-20); Calcium,Total 9.5 mg/dL (8.5-10.1); Chloride 93 mmol/L (98-107); Creatinine, Serum 1.05 mg/dL (0.55-1.02); EST Glomerular Filtration Rate 60 mL/min (>60); Est Glom Filt Rate - Afr Amer 73 mL/min (>60); Estimated Creatinine Clearance 60.88 ml/min; Globulin 4.5 g/dL (2.2-4.2); Glucose 254 mg/dL (74-106); Potassium 3.5 mmol/L (3.5-5.1); Protein, Total 7.9 g/dL (6.4-8.2); Sodium Level 135 mmol/L (136-145)
[2022-09-24] MEDS: Insulin Lispro 100 UNIT/ML INSULN.PEN SC ×2 (09:04→12:30)
[2022-09-24] MEDS: Insulin Lispro 100 UNIT/ML INSULN.PEN 50 UNIT SC ×2 (09:04→12:30)
[2022-09-24] MEDS: Multivitamins,Ther W-Minerals Tablet 1 TABLET PO (09:06)
[2022-09-24] MEDS: APIXABAN 5 MG TABLET PO (09:06)
[2022-09-24] MEDS: dilTIAZem CD 120 MG Capsule PO (09:06)
[2022-09-24] MEDS: Pantoprazole Sodium 40 MG Tablet PO (09:08)
[2022-09-24] MEDS: guaiFENesin 1,200 MG Tablet 1200 MG PO (09:08)
[2022-09-24] MEDS: Metoprolol(XL)Succ 25 MG Tablet PO (09:09)
[2022-09-24 09:36] LABS: Bedside Glucose 204 mg/dL (74-106)
--- NOTE | 2022-09-24 12:04 | DCINST_ITS ---
Discharge Instructions Diet Discharge Diet: Low fat / Low cholesterol, 2000 Calorie Control Diet and 2000 mg Sodium Diet Activity Discharge Activity: Return to Normal Activity Follow Up Care Test Results: Test results from this visit will be discussed in further detail at your follow- up appointment, if applicable. Discharge Plan Admission Admit Date/Time: 09/22/22 18:21 Primary Reason for Your Visit: Acute COPD exacerbation/CHF exacerbation Attending Provider: Shelbi Eubanks Primary Care Provider: Tino Oreilly Consulting Providers: Mihai Chu Instructions Additional Instructions / Restrictions: Take note of changes to your medications Complete your antibiotic Continue on your home oxygen Follow-up with your primary care doctor within 1 week Discharge Orders/Prescriptions Prescriptions: New insulin lispro [Humalog KwikPen Insulin] 100 unit/mL Insulin Pen 50 unit subcut TIDAC Qty: 0 0RF ammonium lactate 12 % Lotion 1 applic topical TID 30 Days Qty: 400 0RF Protocol: *Topical Application Instructions APPLICATION INSTRUCTIONS: apply to both legs and affected dry areas of the body nicotine 21 mg/24 hr Patch 24 Hour 21 mg transdermal DAILY 30 Days Qty: 30 0RF levofloxacin 500 mg tablet 500 mg PO DAILY 5 Days Qty: 5 0RF Continued loratadine 10 mg tablet 10 mg PO DAILY PRN (Reason: Allergies) ipratropium-albuterol 0.5 mg-3 mg(2.5 mg base)/3 mL solution for nebulization 3 ml inhalation Q4H PRN (Reason: Shortness Of Breath Or Wheezing) Rx Instructions: Continue q4h x 7 days. lisinopril 10 mg tablet 10 mg PO DAILY Label Comments: TAKE 1 TABLET BY MOUTH EVERY DAY metformin 500 mg tablet extended release 24 hr 2,000 mg PO DAILY metoprolol succinate 25 mg tablet extended release 24 hr 25 mg PO DAILY Label Comments: TAKE 1 TABLET BY MOUTH EVERY DAY atorvastatin 80 mg tablet 80 mg PO QHS ktopzqss-vunv-AN-calcium-mins 1 EACH tablet 1 ea PO DAILY Label Comments: vitamin gabapentin 300 MG capsule 800 mg PO TID Label Comments: neuropathy omeprazole 40 MG capsule,delayed release(DR/EC) 40 mg PO DAILY diltiazem HCl 120 MG capsule 120 mg PO DAILY apixaban 5 MG tablet 5 mg PO BID Trulicity 4.5 mg/0.5 mL pen injector 4.5 mg SUBCUT WE Label Comments: Inject 4.5 mg subcutaneously one time a week. furosemide 40 mg tablet 80 mg PO BID Label Comments: Take 1 tablet by mouth twice daily. potassium chloride 20 mEq tablet extended release 20 meq PO BID Qty: 60 11RF Changed insulin degludec [Tresiba FlexTouch U-200] 200 unit/mL (3 mL) insulin pen 95 unit SUBCUT BID 30 Days Qty: 28.5 0RF Label Comments: INJECT 100 UNITS SUBCUTANEOUSLY TWICE DAILY (this replaces levemir) Discontinued insulin lispro 100 unit/mL insulin pen 48 unit subcut TIDAC Referrals / Follow Up: Tino Oreilly MD [Primary Care Provider] - Disposition Disposition (needs filled in before D/C Order can be placed): Home, Self Care
[2022-09-24] MEDS: Insulin Glargine-YFGN 100 UNIT/ML Pen 95 UNIT SC (12:28)
--- NOTE | 2022-09-24 12:39 | DS.PCM_ITS ---
Providers Date of Admission: 09/22/22 Date of Discharge: 09/24/22 Primary Care Physician: Dr. Tino Oreilly MD Reason For Visit: ACUTE HYPOXIC RESP FAILURE Diagnosis Discharge Diagnosis (1) Acute on chronic heart failure with normal ejection fraction: Status: Acute Code(s): I50.33 - Acute on chronic diastolic (congestive) heart failure (2) Acute and chronic respiratory failure with hypoxia: Status: Chronic Code(s): J96.21 - Acute and chronic respiratory failure with hypoxia Plan 1. Acute on chronic hypoxic respiratory failure 2. Acute COPD exacerbation 3.Lactic acidosis 4. Acute exacerbation of heart failure with preserved EF, EF 55%, 5. LOGAN on BiPAP 6. Hyperglycemia in a known type II DM, insulin-dependent 7. KERRY, prerenal 8. History of PE 9. Nicotine dependence 10.Hypertension Medications at Discharge Home Medications multivit-iron 18 mg-folic acid 400 mcg-calcium 500 mg-minerals tablet 1 ea PO DAILY supplement 03/26/17 gabapentin 300 mg capsule 800 mg PO TID nerve pain 05/29/17 omeprazole 40 mg capsule,delayed release 40 mg PO DAILY GERD 12/15/18 loratadine 10 mg tablet 10 mg PO DAILY PRN Allergies 03/01/20 apixaban 5 mg tablet 5 mg PO BID blood thinner 08/20/20 diltiazem HCl 120 mg capsule,extended release 24 hr 120 mg PO DAILY heart rate 08/20/20 ipratropium 0.5 mg-albuterol 3 mg (2.5 mg base)/3 mL nebulization soln 3 ml inhalation Q4H PRN Shortness Of Breath Or Wheezing 03/26/21 lisinopril 10 mg tablet 10 mg PO DAILY blood pressure 03/26/21 metformin 500 mg tablet,extended release 24 hr 2,000 mg PO DAILY diabetes 03/26/21 metoprolol succinate 25 mg tablet,extended release 24 hr 25 mg PO DAILY blood pressure 03/26/21 dulaglutide 4.5 mg/0.5 mL subcutaneous pen injector (Trulicity) 4.5 mg subcut WE DM 01/15/22 atorvastatin 80 mg tablet 80 mg PO QHS 02/07/22 potassium chloride 20 mEq tablet,extended release 20 meq PO BID #60 tabs 07/25/22 furosemide 40 mg tablet 80 mg PO BID diuretic 09/22/22 ammonium lactate 12 % lotion 1 applic topical TID 30 days #400 grams 09/24/22 insulin degludec 200 unit/mL (3 mL) subcutaneous pen (Tresiba FlexTouch U-200 insulin) 95 unit (0.475 mL) subcut BID DM 30 days #28.5 mL 09/24/22 insulin lispro 100 unit/mL subcutaneous pen (Humalog KwikPen (U-100) Insulin) 50 unit (0.5 mL) subcut TIDAC #0 mL 09/24/22 levofloxacin 500 mg tablet 500 mg PO DAILY 5 days #5 tabs 09/24/22 nicotine (polacrilex) 4 mg gum 4 mg buccal Q2H PRN nicotine cravings 30 days # 110 ea 09/24/22 nicotine 21 mg/24 hr daily transdermal patch 21 mg transdermal DAILY 30 days #30 ea 09/24/22 prednisone 20 mg tablet 40 mg PO DAILY 5 days #10 tabs 09/24/22 Hospital Course Operations None Procedures None Summary of Care Provided Minutes Spent on Discharge: 40 Hospital Course: 47-year-old female with multiple comorbidities including heart failure with preserved EF, patient is chronically on 3 L of oxygen at rest and 4 L with exertion. She comes in with complaints of progressive shortness of breath ongoing for 4 days. Patient's chest x-ray showed pulmonary venous congestion and bibasilar atelectasis. Patient was admitted to the progressive care unit and managed acute on chronic hypoxic respiratory failure/acute COPD exacerbation/acute exacerbation of heart failure with preserved EF. Patient was managed on IV Lasix, IV Solu-Medrol, IV ceftriaxone and azithromycin. Patient's rapid COVID-19 test was negative. Urine surgical Legionella antigens were negative. Urinalysis came back with presumptive E. coli. She generally improved and was on her baseline oxygen at time of discharge. Patient was discharged on 5 more days of Levaquin, and short course of prednisone 40 mg daily for 5 days. She was also given nicotine patch and lozenges and strongly advised to quit smoking. 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 Physical Exam Narrative Physical exam: General: Alert, Oriented x3, Cooperative, morbidly obese, on 3 L of oxygen HEENT: Atraumatic Oral: Moist Mucosa Neck: Supple Lungs: Diminished to auscultation Cardiovascular: HS I+II, regular, no murmurs Abdomen: Bowel Sounds Present, Soft, Non Tender Extremities: Bilateral pedal edema +1 with chronic venous stasis dermatitis Skin: dryness of the skin of the lower extremities, with flakiness noted in the lower extremities Neurological: Grossly intact Psych/Mental Status: Appropriate Weight / BMI Weight Weight: 172.1 kg Body Mass Index (BMI) 64.3 ABG / Lab / Microbiology Data Result Diagrams: 09/24/22 05:52 09/24/22 05:52 Laboratory: Laboratory Results - last 24 hr 09/23/22 05:01: Hemoglobin A1c 8.9 H 09/23/22 16:40: POC Glucose 269 H 09/23/22 21:55: POC Glucose 340 H 09/24/22 05:52: WBC 15.0 H, RBC 4.54, Hgb 12.6, Hct 41.5, MCV 91.4, MCH 27.8, MCHC 30.4 L, RDW Std Deviation 50.2 H, RDW Coeff of Darrion 15.5 H, Plt Count 273, MPV 9.9, Immature Gran % (Auto) 1.100 H, Neut % (Auto) 81.7 H, Lymph % (Auto) 11.7 L, [place] % (Auto) 5.0, Eos % (Auto) 0.1, Baso % (Auto) 0.4, Absolute Neuts (auto) 12.3 H, Absolute Lymphs (auto) 1.76, Nucleated RBC % 0.1 09/24/22 05:52: Sodium 135 L, Potassium 3.5, Chloride 93 L, Carbon Dioxide 37.0 H, Anion Gap 5, BUN 33 H, Creatinine 1.05 H, Estim Creat Clear Calc 60.88, Est GFR (MDRD) Af Amer 73, Est GFR (MDRD) Non-Af 60, BUN/Creatinine Ratio 31.4 H, Glucose 254 H, Calcium 9.5, Total Bilirubin 0.30, AST 14 L, ALT 24, Alkaline Phosphatase 60, Total Protein 7.9, Albumin 3.4, Globulin 4.5 H, Albumin/Globulin Ratio 0.8 L 09/24/22 08:58: POC Glucose 204 H Microbiology: Microbiology 09/23/22 16:43 Sputum, Expectorated/Coughed Gram Stain - Final 09/23/22 16:43 Sputum, Expectorated/Coughed Respiratory Culture - Preliminary Appears to be normal respiratory nando. Further studies to follow. 09/22/22 18:21 Urine, Clean Catch Urine Culture - Preliminary Presumptive E. coli 09/22/22 20:50 Mucosa - Nasopharyngeal Respiratory Panel (PCR) - Final 09/22/22 18:21 Urine, Clean Catch Legionella Antigen - Final 09/22/22 18:21 Urine, Clean Catch Streptococcus pneumoniae Antigen (M - Final 09/22/22 16:40 Nasal Secretion SARS-CoV-2 & FLU Antigen (Rapid) - Final D/C Instructions Discharge Diet: Low fat / Low cholesterol, 2000 Calorie Control Diet and 2000 mg Sodium Diet Meaningful Use Info Meaningful Use Diagnoses (Choose all that apply): CHF AMI/Post PCI/Angioplasty Documented LVEF (%): 55 CHF TUSHAR/ARB ordered at discharge?: No Reason TUSHAR/ARB not ordered?: Not indicated Documented LVEF (%): 55 Discharge Plan Admission Admit Date/Time: 09/22/22 18:21 Primary Reason for Your Visit: Acute COPD exacerbation/CHF exacerbation Attending Provider: Shelbi Eubanks Primary Care Provider: Tino Oreilly Consulting Providers: Mihai Chu Instructions Additional Instructions / Restrictions: Take note of changes to your medications Complete your antibiotic Continue on your home oxygen Follow-up with your primary care doctor within 1 week You are strongly advised to quit smoking Discharge Orders/Prescriptions Prescriptions: New insulin lispro [Humalog KwikPen Insulin] 100 unit/mL Insulin Pen 50 unit subcut TIDAC Qty: 0 0RF ammonium lactate 12 % Lotion 1 applic topical TID 30 Days Qty: 400 0RF Protocol: *Topical Application Instructions APPLICATION INSTRUCTIONS: apply to both legs and affected dry areas of the body nicotine 21 mg/24 hr Patch 24 Hour 21 mg transdermal DAILY 30 Days Qty: 30 0RF levofloxacin 500 mg tablet 500 mg PO DAILY 5 Days Qty: 5 0RF nicotine (polacrilex) 4 mg gum 4 mg buccal Q2H PRN (Reason: nicotine cravings) 30 Days Qty: 110 0RF prednisone 20 mg tablet 40 mg PO DAILY 5 Days Qty: 10 0RF Continued loratadine 10 mg tablet 10 mg PO DAILY PRN (Reason: Allergies) ipratropium-albuterol 0.5 mg-3 mg(2.5 mg base)/3 mL solution for nebulization 3 ml inhalation Q4H PRN (Reason: Shortness Of Breath Or Wheezing) Rx Instructions: Continue q4h x 7 days. lisinopril 10 mg tablet 10 mg PO DAILY Label Comments: TAKE 1 TABLET BY MOUTH EVERY DAY metformin 500 mg tablet extended release 24 hr 2,000 mg PO DAILY metoprolol succinate 25 mg tablet extended release 24 hr 25 mg PO DAILY Label Comments: TAKE 1 TABLET BY MOUTH EVERY DAY atorvastatin 80 mg tablet 80 mg PO QHS dtudozbx-yvou-BX-calcium-mins 1 EACH tablet 1 ea PO DAILY Label Comments: vitamin gabapentin 300 MG capsule 800 mg PO TID Label Comments: neuropathy omeprazole 40 MG capsule,delayed release(DR/EC) 40 mg PO DAILY diltiazem HCl 120 MG capsule 120 mg PO DAILY apixaban 5 MG tablet 5 mg PO BID Trulicity 4.5 mg/0.5 mL pen injector 4.5 mg SUBCUT WE Label Comments: Inject 4.5 mg subcutaneously one time a week. furosemide 40 mg tablet 80 mg PO BID Label Comments: Take 1 tablet by mouth twice daily. potassium chloride 20 mEq tablet extended release 20 meq PO BID Qty: 60 11RF Changed insulin degludec [Tresiba FlexTouch U-200] 200 unit/mL (3 mL) insulin pen 95 unit SUBCUT BID 30 Days Qty: 28.5 0RF Label Comments: INJECT 100 UNITS SUBCUTANEOUSLY TWICE DAILY (this replaces levemir) Discontinued insulin lispro 100 unit/mL insulin pen 48 unit subcut TIDAC Referrals / Follow Up: Tino Oreilly MD [Primary Care Provider] - 09/30/22 1:00 pm Disposition Disposition (needs filled in before D/C Order can be placed): Home, Self Care Charges/Coding Visit Charges Inpatient E&M: [id number] Disch Hosp
[2022-09-24] MEDS: FLU VACC QS2022-23(6MOS UP)/PF 60 MCG/0.5 ML SYRINGE IM (12:42)
[2022-09-24 13:05] LABS: Bedside Glucose 216 mg/dL (74-106)
== END 2022-09-24 13:55 | disposition home or self-care (01) | DRG 291 ==
LOC: ED 18:27 → PCU 18:40
PROVIDERS: Admitting Provider Internal Medicine; Emergency Provider Student in an Organized Health Care Education/Training Program; PCP Family Medicine; Visit Provider Internal Medicine
DX: I11.0 Hypertensive heart disease with heart failure (principal); J96.21 Acute and chronic respiratory failure with hypoxia; I50.33 Acute on chronic diastolic (congestive) heart failure; E87.20 Acidosis, unspecified; N17.9 Acute kidney failure, unspecified; E66.2 Morbid (severe) obesity with alveolar hypoventilation; J44.1 Chronic obstructive pulmonary disease with (acute) exacerbation; Z68.44 Body mass index [BMI] 60.0-69.9, adult; N39.0 Urinary tract infection, site not specified; E11.65 Type 2 diabetes mellitus with hyperglycemia; Z79.4 Long term (current) use of insulin; F17.210 Nicotine dependence, cigarettes, uncomplicated; E78.5 Hyperlipidemia, unspecified; K21.9 Gastro-esophageal reflux disease without esophagitis; I25.2 Old myocardial infarction; Z23 Encounter for immunization; Z20.822 Contact with and (suspected) exposure to COVID-19; Z79.01 Long term (current) use of anticoagulants; Z79.899 Other long term (current) drug therapy; Z86.711 Personal history of pulmonary embolism
CPT/HCPCS: 36415; 36600; 71045; 80048; 80053; 80061; 80076; 81001; 82803; 82962; 83036; 83605; 83735; 83880; 84100; 84484; 85025; 85610; 87040; 87070; 87086; 87088; 87186; 87205; 87428; 87449; 87633; 87641; 93005; 94002; 94003; 94640; 94667; 94668; 94762; 97161; 97165; 99285; 99406; 90686; A4216; J0696; J1940

== ENCOUNTER → 2022-10-18 | Outpatient (CLI) | payer MEDICARE, MEDICAID, SELFPAY ==
[2022-10-18 14:21] LABS: BNP,B-Type NATRIURETIC PEPTIDE 11.2 pg/mL (0-100)
== END | disposition home or self-care (01) ==
LOC: LABSPEC 13:38
PROVIDERS: PCP Family Medicine; Referring Provider Family Medicine; Visit Provider Family Medicine
DX: I50.31 Acute diastolic (congestive) heart failure (principal)
CPT/HCPCS: 83880

== ENCOUNTER 2022-11-01 14:33 | Emergency (ER) | payer MEDICARE, MEDICAID, SELFPAY ==
[2022-11-01 14:36] VITALS: BP 153/123; RESP 104; TEMP 36.8; O2SAT 99; BMI 62.9
[2022-11-01 14:42] VITALS: O2SAT 100
--- NOTE | 2022-11-01 14:48 | EKG12_ITS ---
Test Reason : SOB Blood Pressure : / mmHG Vent. Rate : 106 BPM Atrial Rate : 106 BPM P-R Int : 150 ms QRS Dur : 076 ms QT Int : 322 ms P-R-T Axes : 054 -07 063 degrees QTc Int : 427 ms Sinus tachycardia Otherwise normal ECG Confirmed by HASMUKH LORA, LILIANA ([id number]), avid editor DANIELE MALDONADO ([id number]) on 11/05/2022 11:48:27 AM Referred By: Confirmed By:LILIANA NOE MD
--- NOTE | 2022-11-01 14:50 | ED.VIS.DYS ---
HPI History of Present Illness Chief Complaint: Shortness of Breath Narrative Narrative: 47-year-old female presenting with shortness of breath. She states she went to urgent care today because she had a sore throat and ran out of oxygen. She states that she is on 4 L chronically. She states that she had been running low at about 87 on her baseline oxygen. She has a history of restrictive lung disease, diabetes, pneumonia, LOGAN, CHF. She reports that she has had a fever at home as high as 102. This has been ongoing for couple of days. She admits to chills and body aches. She has not been tested for anything as of yet. [facility] Medical History Abscess Abscess of vulva KERRY (acute kidney injury) Anxiety BiPAP (biphasic positive airway pressure) dependence Chronic diastolic (congestive) heart failure Chronic respiratory failure with hypoxia Contusion of knee, right COPD (chronic obstructive pulmonary disease) Depression Diabetes Dyspnea on exertion Essential hypertension GERD (gastroesophageal reflux disease) Hidradenitis History of left heart catheterization (LHC) (~01/05/19) History of MRSA infection Hyperglycemia due to type 2 diabetes mellitus Hyperlipidemia Hypertension Morbid obesity Necrotizing soft tissue infection Non-healing open wound of left groin NSTEMI (non-ST elevated myocardial infarction) 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 Old myocardial infarction On home oxygen therapy Open wound of vulva with complication Opiate overdose Pulmonary embolism Respiratory failure with hypoxia Restrictive lung disease secondary to obesity Sleep apnea Smoker Soft tissue abscess of inguinal region Tobacco abuse Type 2 diabetes mellitus Home Medications multivit-iron 18 mg-folic acid 400 mcg-calcium 500 mg-minerals tablet 1 ea PO DAILY supplement 03/26/17 [History Last Taken 01/15/22] gabapentin 300 mg capsule 800 mg PO TID nerve pain 05/29/17 [History Last Taken 01/15/22] omeprazole 40 mg capsule,delayed release 40 mg PO DAILY GERD 12/15/18 [History Last Taken 01/15/22] loratadine 10 mg tablet 10 mg PO DAILY PRN Allergies 03/01/20 [History Last Taken 01/15/22] apixaban 5 mg tablet 5 mg PO BID blood thinner 08/20/20 [History Last Taken 01/15/22] diltiazem HCl 120 mg capsule,extended release 24 hr 120 mg PO DAILY heart rate 08/20/20 [History Last Taken 01/15/22] ipratropium 0.5 mg-albuterol 3 mg (2.5 mg base)/3 mL nebulization soln 3 ml inhalation Q4H PRN Shortness Of Breath Or Wheezing 03/26/21 [History Last Taken 01/15/22] lisinopril 10 mg tablet 10 mg PO DAILY blood pressure 03/26/21 [History Last Taken 01/15/22] metformin 500 mg tablet,extended release 24 hr 2,000 mg PO DAILY diabetes 03/26/21 [History Last Taken 01/15/22] metoprolol succinate 25 mg tablet,extended release 24 hr 25 mg PO DAILY blood pressure 03/26/21 [History Last Taken 01/15/22] dulaglutide 4.5 mg/0.5 mL subcutaneous pen injector (Trulicity) 4.5 mg subcut WE DM 01/15/22 [History Last Taken 01/09/22] atorvastatin 80 mg tablet 100 mg PO QHS 02/07/22 [History Last Taken Unknown] potassium chloride 20 mEq tablet,extended release 20 meq PO BID #60 tabs 07/25/22 [Rx Last Taken Unknown] furosemide 40 mg tablet 80 mg PO BID diuretic 09/22/22 [History Last Taken Unknown] ammonium lactate 12 % lotion 1 applic topical TID 30 days #400 grams 09/24/22 [Rx Last Taken Unknown] insulin degludec 200 unit/mL (3 mL) subcutaneous pen (Tresiba FlexTouch U-200 insulin) 95 unit (0.475 mL) subcut BID DM 30 days #28.5 mL 09/24/22 [Rx Last Taken 01/15/22] insulin lispro 100 unit/mL subcutaneous pen (Humalog KwikPen (U-100) Insulin) 50 unit (0.5 mL) subcut TIDAC #0 mL 09/24/22 [Rx Last Taken Unknown] levofloxacin 500 mg tablet 500 mg PO DAILY 5 days #5 tabs 09/24/22 [Rx Last Taken Unknown] nicotine (polacrilex) 4 mg gum 4 mg buccal Q2H PRN nicotine cravings 30 days #110 ea 09/24/22 [Rx Last Taken Unknown] nicotine 21 mg/24 hr daily transdermal patch 21 mg transdermal DAILY 30 days #30 ea 09/24/22 [Rx Last Taken Unknown] prednisone 20 mg tablet 40 mg PO DAILY 5 days #10 tabs 09/24/22 [Rx Last Taken Unknown] amoxicillin 875 mg-potassium clavulanate 125 mg tablet 1 tab PO BID #20 tabs 11/01/22 [Rx Last Taken Unknown] prednisone 50 mg tablet 50 mg PO DAILY 5 days #5 tabs 11/01/22 [Rx Last Taken Unknown] Allergy/AdvReac Type Severity Reaction Status Date / Time cyclobenzaprine HCl Allergy Hives Verified 11/01/22 14:35 [From Flexeril] venlafaxine [From Effexor] AdvReac Severe unknown Verified 11/01/22 14:35 Family History Father CVA (cerebral vascular accident) Heart disease Diabetes Mother Thyroid disorder Surgical History H/O arthroscopic knee surgery History of delivery History of cholecystectomy Social History Smoking Status: Former smoker how long ago did patient quit smokin PPD smoker second hand exposure: Yes alcohol intake: never substance use type: does not use caffeine: Yes Type: carbonated beverages Number of servings: 1 and coffee Number of servings: 1 ROS ROS ED Constitutional Constitutional ED: Reports chills and fever(s) Eyes Eyes: Denies change in vision or diplopia ENT ENT ED: Reports rhinorrhea and sore throat Cardiovascular Cardiovascular: Denies chest pain Respiratory/Chest Respiratory/Chest: Reports cough, dyspnea and dyspnea on exertion Gastrointestinal Gastrointestinal: Denies abdominal pain Genitourinary Genitourinary ED: Denies dysuria or hematuria Musculoskeletal Musculoskeletal: Reports myalgias Integumentary Denies abscess or Abrasions Neurologic Neurologic: Reports headache(s); Denies paresthesias Psychiatric Psychiatric: Denies anxiety or depression EXAM Physical Exam Const Vital Signs: 11/01/22 14:36 11/01/22 14:42 11/01/22 15:12 Temperature 98.3 F Temperature Source Temporal Pulse Rate 103 H Respiratory Rate 104 H 19 H Respiratory Effort Short of Breath Respiratory Depth Shallow Respiratory Pattern Normal Blood Pressure 153/123 H Blood Pressure Mean 133 Pulse Ox 99 Oxygen Delivery Method Nasal Cannula Nasal Cannula Oxygen Flow Rate (L/min) 4 4 11/01/22 15:12 11/01/22 16:50 Temperature 98.7 F Temperature Source Oral Pulse Rate 94 Respiratory Rate 18 Respiratory Effort Respiratory Depth Respiratory Pattern Blood Pressure 121/54 H Blood Pressure Mean 76 Pulse Ox 98 97 Oxygen Delivery Method Nasal Cannula Non-Rebreather Oxygen Flow Rate (L/min) 3.5 15 Positive obese General Appearance ED: NAD; Negative for pallor Nutritional Appearance: obese HEENT Reports TM's clear and dry mucous membranes Tympanic Membrane ED: Yes TM's clear bilateral Mouth ED: Yes dry mucous membranes Mouth: dry mucous membranes Eyes PERRL Neck No no lymphadenopathy, supple and no meningeal signs Resp normal respiratory effort and clear to auscultation bilaterally Auscultation: wheezes throughout Cardio regular rhythm Rate: tachycardic Back/Spine no CVA tenderness Neuro oriented x3 and CN's II-XII intact bilaterally Sensorium / Orientation: alert Motor Exam: strength 5/5 throughout Psych mental status grossly normal Skin no wounds General Skin Exam: Negative for jaundice or pallor MDM MDM MDM Narrative Medical decision making narrative: Patient presenting with shortness of breath, however she ran out of her oxygen while going to the urgent care for her sore throat. She reports a slight cough, fever, chills, body aches. Patient is wheezing on exam so she was given breathing treatments and Solu-Medrol IV. On reevaluation her breathing has improved. It is noted that she drops her O2 sats when she falls asleep in the bed. She chronically needs to be on CPAP when she sleeps. She does report that she does not do that very often. She was tested for COVID, RSV, influenza, strep. Her strep swab came back positive. Her blood work shows a leukocytosis of 23.2. Hemoglobin hematocrit are stable. Platelets are normal. Creatinine was slightly elevated at 1.48. Electrolytes are unremarkable. Liver enzymes are all within normal limits. High-sensitivity troponin is 31. Although the patient does have a high white blood cell count I suspect this is due to strep pharyngitis. Her chest x-ray on my interpretation shows no acute cardiopulmonary process and radiologist agree. Patient anticoagulated on Eliquis slight low suspicion for PE. I feel she can be treated at home. I will also put her on a prednisone burst since she is wheezing. Return precautions were discussed with her. Impression: 1. Strep pharyngitis 2. Febrile illness 3. Leukocytosis 5. Reactive airway disease Lab Data Attestation: I reviewed the patient's lab results. Labs: Laboratory Results - last 24 hr 11/01/22 11/01/22 11/01/22 15:00 15:00 15:00 WBC 23.2 H RBC 4.55 Hgb 12.8 Hct 41.6 MCV 91.4 MCH 28.1 MCHC 30.8 L RDW Std Deviation 59.3 H RDW Coeff of Darrion 17.5 H Plt Count 230 MPV 9.5 Immature Gran % (Auto) 0.800 Neut % (Auto) 84.4 H Lymph % (Auto) 8.8 L Weld % (Auto) 5.7 Eos % (Auto) 0.0 Baso % (Auto) 0.3 Absolute Neuts (auto) 19.5 H Absolute Lymphs (auto) 2.04 Nucleated RBC % 0 Sodium 133 L Potassium 3.8 Chloride 92 L Carbon Dioxide 36.0 H Anion Gap 5 BUN 36 H Creatinine 1.48 H Estim Creat Clear Calc 43.19 Est GFR (MDRD) Af Amer 49 L Est GFR (MDRD) Non-Af 41 L BUN/Creatinine Ratio 24.3 H Glucose 164 H Calcium 9.3 Total Bilirubin 0.40 AST 20 ALT 28 Alkaline Phosphatase 53 Troponin I High Sens 31 Total Protein 7.7 Albumin 3.3 Globulin 4.4 H Albumin/Globulin Ratio 0.8 L Radiography Diagnostic Testing: Clinical Impression(s) from Imaging Studies Chest X-Ray 11/01/22 15:25 IMPRESSION: No radiographic evidence of acute cardiopulmonary disease. Electronically Signed: Keyonna Larios MD at 16:54 EST Reading Location ID and State: [id number] / Tel , Service support , Discharge Plan Triage Chief Complaint: Shortness of Breath Other Complaint: Fever ED Provider: Rupert Pitts Dx/Rx/DC Orders Instructions: ED COPD Flare, ED Pharyngitis Strep Confirmed ... Prescriptions: New prednisone 50 mg tablet 50 mg PO DAILY 5 Days Qty: 5 0RF amoxicillin-pot clavulanate 875-125 mg tablet 1 tab PO BID Qty: 20 0RF No Action loratadine 10 mg tablet 10 mg PO DAILY PRN (Reason: Allergies) ipratropium-albuterol 0.5 mg-3 mg(2.5 mg base)/3 mL solution for nebulization 3 ml inhalation Q4H PRN (Reason: Shortness Of Breath Or Wheezing) Rx Instructions: Continue q4h x 7 days. lisinopril 10 mg tablet 10 mg PO DAILY Label Comments: TAKE 1 TABLET BY MOUTH EVERY DAY metformin 500 mg tablet extended release 24 hr 2,000 mg PO DAILY metoprolol succinate 25 mg tablet extended release 24 hr 25 mg PO DAILY Label Comments: TAKE 1 TABLET BY MOUTH EVERY DAY atorvastatin 80 mg tablet 100 mg PO QHS [id number]-calcium-mins 1 EACH tablet 1 ea PO DAILY Label Comments: vitamin gabapentin 300 MG capsule 800 mg PO TID Label Comments: neuropathy omeprazole 40 MG capsule,delayed release(DR/EC) 40 mg PO DAILY diltiazem HCl 120 MG capsule 120 mg PO DAILY apixaban 5 MG tablet 5 mg PO BID Trulicity 4.5 mg/0.5 mL pen injector 4.5 mg SUBCUT WE Label Comments: Inject 4.5 mg subcutaneously one time a week. furosemide 40 mg tablet 80 mg PO BID Label Comments: Take 1 tablet by mouth twice daily. insulin lispro [Humalog KwikPen Insulin] 100 unit/mL Insulin Pen 50 unit subcut TIDAC Qty: 0 0RF ammonium lactate 12 % Lotion 1 applic topical TID 30 Days Qty: 400 0RF Protocol: *Topical Application Instructions APPLICATION INSTRUCTIONS: apply to both legs and affected dry areas of the body nicotine 21 mg/24 hr Patch 24 Hour 21 mg transdermal DAILY 30 Days Qty: 30 0RF insulin degludec [Tresiba FlexTouch U-200] 200 unit/mL (3 mL) insulin pen 95 unit SUBCUT BID 30 Days Qty: 28.5 0RF Label Comments: INJECT 100 UNITS SUBCUTANEOUSLY TWICE DAILY (this replaces levemir) levofloxacin 500 mg tablet 500 mg PO DAILY 5 Days Qty: 5 0RF nicotine (polacrilex) 4 mg gum 4 mg buccal Q2H PRN (Reason: nicotine cravings) 30 Days Qty: 110 0RF prednisone 20 mg tablet 40 mg PO DAILY 5 Days Qty: 10 0RF potassium chloride 20 mEq tablet extended release 20 meq PO BID Qty: 60 11RF Primary Care Provider: Tino Oreilly Referrals: Tino Oreilly MD [Primary Care Provider] - Disposition Disposition: Home, Self Care
[2022-11-01] MEDS: Ipratropium/Albuterol Sulfate 3 ML AMPUL.NEB INHALATION (15:01)
[2022-11-01] MEDS: Albuterol 2.5 MG/3 ML VIAL.NEB. INHALATION (15:01)
[2022-11-01] MEDS: MethylPREDNISolone 125 MG/2 ML Vial IV (15:01)
[2022-11-01] MEDS: Ketorolac 15 MG/ML Vial IV (15:01)
[2022-11-01 15:07] LABS: Absolute Lymphocyte Count 2.04 X10^3/uL (0.83-4.51); Absolute Neutrophil Count 19.5 X10^3/uL (2.0-7.7); Basophil# 0.08 X10^3/uL; Basophil% 0.3 % (0-1); Eosinophil# 0.01 X10^3/uL; Hematocrit 41.6 % (37-47); Hemoglobin 12.8 g/dL (12.0-15.0); Lymphocyte # 2.04 X10^3/ul (0.83-4.51); Lymphocyte % 8.8 % (19-41); Mean Corp Hgb Conc 30.8 g/dL (32-36); Mean Corpuscular Hgb 28.1 pg (27.0-32.0); Mean Corpuscular Volume 91.4 fL (81-99); Mean Platelet Vol. 9.5 fl (6.2-12.0); Monocyte# 1.33 X10^3/uL; Monocyte% 5.7 % (0-10); NRBC Flagged by Analyzer 0 % (0-5); Neutrophil # 19.54 X10^3/uL (2.7-7.7); Neutrophil % 84.4 % (47-70); Platelet Count 230 K/mm3 (150-450); RBC Distribution Width CV 17.5 % (11.6-14.6); RBC Distribution Width SD 59.3 fl (35.1-43.9); Red Blood Count 4.55 M/mm3 (4.2-5.4); White Blood Count 23.2 K/mm3 (4.4-11.0)
[2022-11-01 15:12] VITALS: PULSE 103; RESP 19; O2SAT 98
[2022-11-01 15:23] LABS: ALB/GLOB Ratio 0.8 RATIO (0.9-2.4); AST(SGOT) 20 U/L (15-37); Alanine Aminotransfer ALT/SGPT 28 U/L (13-56); Albumin, Serum 3.3 g/dL (3.2-5.0); Alkaline Phosphatase 53 U/L (45-117); Anion Gap 5 (5-15); BUN 36 mg/dL (7-18); BUN/Creat Ratio 24.3 RATIO (10-20); Calcium,Total 9.3 mg/dL (8.5-10.1); Chloride 92 mmol/L (98-107); Creatinine, Serum 1.48 mg/dL (0.55-1.02); EST Glomerular Filtration Rate 41 mL/min (>60); Est Glom Filt Rate - Afr Amer 49 mL/min (>60); Estimated Creatinine Clearance 43.19 ml/min; Globulin 4.4 g/dL (2.2-4.2); Glucose 164 mg/dL (74-106); Potassium 3.8 mmol/L (3.5-5.1); Protein, Total 7.7 g/dL (6.4-8.2); Sodium Level 133 mmol/L (136-145)
--- NOTE | 2022-11-01 15:25 | RAD_ITS ---
INDICATION: cough EXAMINATION/TECHNIQUE: X-RAY - XR Chest 1 View COMPARISON: 09/22/2022. FINDINGS: LINES/DEVICES: None. LUNGS: No consolidation, edema or effusion. No pneumothorax. MEDIASTINUM AND CARDIOVASCULAR STRUCTURES: Cardiac silhouette not enlarged. Central airways and mediastinal contour are unremarkable. BONES AND SOFT TISSUES: Unremarkable. RAD/Chest 1 View (Portable) IMPRESSION: No radiographic evidence of acute cardiopulmonary disease. Electronically Signed: Keyonna Larios MD at 16:54 EST Reading Location ID and State: [id number] / Tel , Service support ,
[2022-11-01 15:30] LABS: Troponin-I HS 31 pg/mL (3.0-54.0)
[2022-11-01 16:50] VITALS: BP 121/54; PULSE 94; RESP 18; TEMP 37.1; O2SAT 97
[2022-11-01] MEDS: Amox/Clavulanate 875 MG Tablet PO (17:24)
== END 2022-11-01 18:12 | disposition home or self-care (01) ==
PROVIDERS: Emergency Provider Student in an Organized Health Care Education/Training Program; PCP Family Medicine; Visit Provider Student in an Organized Health Care Education/Training Program
DX: J02.0 Streptococcal pharyngitis (principal); I11.0 Hypertensive heart disease with heart failure; I50.32 Chronic diastolic (congestive) heart failure; E11.9 Type 2 diabetes mellitus without complications; D72.829 Elevated white blood cell count, unspecified; E78.5 Hyperlipidemia, unspecified; J45.909 Unspecified asthma, uncomplicated; R06.02 Shortness of breath; Z79.52 Long term (current) use of systemic steroids; Z87.891 Personal history of nicotine dependence
CPT/HCPCS: 71045; 80053; 84484; 85025; 87077; 87428; 87807; 87880; 93005; 94640; 96374; 96375; 99285

== ENCOUNTER 2022-12-09 11:58 | Emergency (ER) | payer MEDICARE, MEDICAID, SELFPAY ==
[2022-12-09 11:58] VITALS: BP 201/103; PULSE 110; RESP 20; TEMP 36.6; O2SAT 93; BMI 59.8
--- NOTE | 2022-12-09 12:21 | EKG12_ITS ---
Test Reason : SOB Blood Pressure : / mmHG Vent. Rate : 096 BPM Atrial Rate : 096 BPM P-R Int : 142 ms QRS Dur : 080 ms QT Int : 350 ms P-R-T Axes : 051 -07 071 degrees QTc Int : 442 ms Normal sinus rhythm Normal ECG Confirmed by MELISSA LORA, CRISTEL ([id number]), editor newspaper DANIELE MALDONADO ([id number]) on 12/11/2022 10:34:02 AM Referred By: Confirmed By:CRISTEL TORRES MD
--- NOTE | 2022-12-09 12:23 | ED.VIS.DYS ---
HPI History of Present Illness Chief Complaint: Shortness of Breath Informant: patient and friend Onset/Context/Timing Onset: Days Context: gradual Timing: Continuous and Waxes and wanes Quality: Positive for Dyspnea on exertion, Orthopnea and Wheezing; Negative for PND Current Severity: Mild Maximum Severity: Severe Worsened by: Exertion and Lying flat Relieved by: Nothing Associated Symptoms cough and other; Negative for rhinorrhea, post nasal drip, ear pain, fever, sore throat, subjective, chills, sweats, clear sputum, white sputum, yellow sputum or green sputum Chest Pain: Positive for None Narrative Narrative: Patient is a 47-year-old woman with history of chronic respiratory failure on home oxygen at 4 L. She also has history of obstructive sleep apnea. She states she is mostly compliant with the use of her CPAP machine. She does have history of COPD. She reports a productive cough of brown-colored sputum. Sputum has been present for the past couple of days. She has a nebulizer at home which she has been using without improvement. She does have history of diabetes. She states her blood sugar this morning was 182 which is good for her. She denies headache, visual, ocular auditory symptoms. She denies ear pain or drainage. She does report colored secretions from her nose. She denies nausea, vomiting diarrhea. She denies dysuria, frequency, urgency or hematuria. She does report thirst and dry mouth. PE Risk Factors: Negative for Cancer, OCP + Smoking + > 35, Prior DVT or PE, Recent immobilization, Recent surgery or Recent travel Prior similar symptoms: Yes Recent Illness/Hospitalization: No PFSH [facility] Medical History Abscess Abscess of vulva KERRY (acute kidney injury) Anxiety BiPAP (biphasic positive airway pressure) dependence Chronic diastolic (congestive) heart failure Chronic respiratory failure with hypoxia Contusion of knee, right COPD (chronic obstructive pulmonary disease) Depression Diabetes Dyspnea on exertion Essential hypertension GERD (gastroesophageal reflux disease) Hidradenitis History of left heart catheterization (LHC) (~01/05/19) History of MRSA infection Hyperglycemia due to type 2 diabetes mellitus Hyperlipidemia Hypertension Morbid obesity Necrotizing soft tissue infection Non-healing open wound of left groin NSTEMI (non-ST elevated myocardial infarction) 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 Old myocardial infarction On home oxygen therapy Open wound of vulva with complication Opiate overdose Pulmonary embolism Respiratory failure with hypoxia Restrictive lung disease secondary to obesity Sleep apnea Smoker Soft tissue abscess of inguinal region Tobacco abuse Type 2 diabetes mellitus Home Medications multivit-iron 18 mg-folic acid 400 mcg-calcium 500 mg-minerals tablet 1 ea PO DAILY supplement 03/26/17 [History Last Taken 12/09/22] omeprazole 40 mg capsule,delayed release 40 mg PO DAILY GERD 12/15/18 [History Last Taken 12/09/22] loratadine 10 mg tablet 10 mg PO DAILY PRN Allergies 03/01/20 [History Last Taken 12/09/22] apixaban 5 mg tablet 5 mg PO BID blood thinner 08/20/20 [History Last Taken 12/09/22] diltiazem HCl 120 mg capsule,extended release 24 hr 120 mg PO DAILY heart rate 08/20/20 [History Last Taken 12/09/22] lisinopril 10 mg tablet 10 mg PO DAILY blood pressure 03/26/21 [History Last Taken 12/09/22] metformin 500 mg tablet,extended release 24 hr 2,000 mg PO DAILY diabetes 03/26/21 [History Last Taken 01/15/22] metoprolol succinate 25 mg tablet,extended release 24 hr 25 mg PO DAILY blood pressure 03/26/21 [History Last Taken 12/09/22] dulaglutide 4.5 mg/0.5 mL subcutaneous pen injector (Trulicity) 4.5 mg subcut WE DM 01/15/22 [History Last Taken 12/05/22] atorvastatin 80 mg tablet 100 mg PO QHS 02/07/22 [History Last Taken 12/09/22] potassium chloride 20 mEq tablet,extended release 20 meq PO BID #60 tabs 07/25/22 [Rx Last Taken 12/09/22] furosemide 40 mg tablet 40 mg PO BID diuretic 09/22/22 [History Last Taken 12/09/22] ammonium lactate 12 % lotion 1 applic topical TID 30 days #400 grams 09/24/22 [Rx Last Taken 12/08/22] insulin degludec 200 unit/mL (3 mL) subcutaneous pen (Tresiba FlexTouch U-200 insulin) 95 unit (0.475 mL) subcut BID DM 30 days #28.5 mL 09/24/22 [Rx Last Taken 12/09/22] insulin lispro 100 unit/mL subcutaneous pen (Humalog KwikPen (U-100) Insulin) 50 unit (0.5 mL) subcut TIDAC #0 mL 09/24/22 [Rx Last Taken 12/09/22] albuterol sulfate 2.5 mg/3 mL (0.083 %) solution for nebulization 2.5 mg inhalation Q4H PRN SOB 12/09/22 [History Last Taken 12/08/22] doxycycline monohydrate 100 mg capsule 100 mg PO BID #14 CAPSULES 12/09/22 [Rx Last Taken Unknown] empagliflozin 10 mg tablet (Jardiance) 10 mg PO DAILY DM 12/09/22 [History Last Taken 12/09/22] fenofibrate nanocrystallized 145 mg tablet 145 mg PO DAILY CHOLESTEROL 12/09/22 [History Last Taken 12/09/22] furosemide 20 mg tablet 20 mg PO DAILY diuretic 12/09/22 [History Last Taken Unknown] gabapentin 800 mg tablet 800 mg PO TID NERVE PAIN 12/09/22 [History Last Taken 12/09/22] insulin glargine U-300 conc 300 unit/mL (3 mL) subcutaneous pen (Toujeo Max U-300 SoloStar) 150 unit subcut DAILY DM 12/09/22 [History Last Taken 12/09/22] nicotine (polacrilex) 2 mg buccal mini lozenge 2 mg PO PRN PRN Smoking Cessation 12/09/22 [History Last Taken 12/08/22] prednisone 20 mg tablet 60 mg PO DAILY #12 TABLETS 12/09/22 [Rx Last Taken Unknown] Allergy/AdvReac Type Severity Reaction Status Date / Time cyclobenzaprine HCl Allergy Hives Verified 12/09/22 12:01 [From Flexeril] venlafaxine [From Effexor] AdvReac Severe unknown Verified 12/09/22 12:01 Family History Father CVA (cerebral vascular accident) Heart disease Diabetes Mother Thyroid disorder Surgical History H/O arthroscopic knee surgery History of delivery History of cholecystectomy Social History (Updated 12/09/22 @ 12:[address] Jozef Kaiser MD) household members: none Smoking Status: Former smoker how long ago did patient quit smokin PPD smoker second hand exposure: Yes alcohol intake: never substance use type: does not use caffeine: Yes Type: carbonated beverages Number of servings: 1 and coffee Number of servings: 1 ROS ROS ED Constitutional Constitutional ED: Denies chills, fever(s), sweats or weight loss Eyes Eyes: Denies blurry vision, change in vision or diplopia ENT ENT ED: Denies ear pain, rhinorrhea or sore throat Cardiovascular Cardiovascular: Reports orthopnea; Denies chest pain, palpitations, paroxysmal nocturnal dyspnea or racing heartbeat Respiratory/Chest Respiratory/Chest: Reports cough, dyspnea, dyspnea on exertion, orthopnea and sputum; Denies paroxysmal nocturnal dyspnea Gastrointestinal Gastrointestinal: Denies abdominal pain, diarrhea, nausea or vomiting Genitourinary Genitourinary ED: Denies dysuria, hematuria or urinary frequency Musculoskeletal Musculoskeletal: Denies arthralgias, back pain, myalgias or neck pain Integumentary Denies Abrasions or rash Neurologic Neurologic: Denies headache(s) or paresthesias Psychiatric Psychiatric: Denies anxiety or depression Endocrine Endocrinology: Reports polydipsia; Denies cold intolerance, polyphagia or polyuria Hematologic/Lymphatic Hematologic/Lymphatic: Denies easy bleeding or easy bruising EXAM Physical Exam Const Vital Signs: 12/09/22 11:58 12/09/22 12:38 12/09/22 12:38 Temperature 97.8 F Temperature Source Temporal Pulse Rate 110 H Respiratory Rate 20 H 18 Respiratory Effort Blood Pressure 201/103 H Blood Pressure Mean 135 Pulse Ox 93 94 Oxygen Delivery Method Nasal Cannula Nasal Cannula Oxygen Flow Rate (L/min) 4 4 12/09/22 12:38 12/09/22 12:50 12/09/22 12:55 Temperature Temperature Source Pulse Rate 96 Respiratory Rate 18 23 H Respiratory Effort Normal Non-Labored Blood Pressure 120/45 L Blood Pressure Mean 70 Pulse Ox 94 94 Oxygen Delivery Method Nasal Cannula Nasal Cannula Oxygen Flow Rate (L/min) 4 4 Positive well nourished, well developed and obese Constitutional Narrative: Patient does not appear well. She is morbidly obese with a BMI of 59.8. Patient is slightly tachypneic. There is no use of accessory muscles. General Appearance ED: well developed; Negative for pallor Nutritional Appearance: obese HEENT Reports dry mucous membranes HEENT Narrative: Head is atraumatic normocephalic. Ears normal. Nares patent. Posterior pharynx is normal. Mouth ED: Yes dry mucous membranes Mouth: dry mucous membranes Eyes PERRL and EOMs intact bilaterally General Eye ED: Negative for pale conjunctiva or scleral icterus Neck no lymphadenopathy, supple, no meningeal signs and no JVD Neck Narrative: There is no inspiratory expiratory stridor with auscultation of the neck. Resp No normal respiratory effort and No clear to auscultation bilaterally Auscultation: rales bilateral base, rhonchi left upper and right upper, wheezes expiratory wheezes (Scattered bilaterally) and diminished lung sounds diffuse Cardio regular rhythm, S1 normal heart sound, S2 normal heart sound and no murmurs Rate: tachycardic GI non-tender, non-distended and no masses Auscultation: hypoactive bowel sounds Palpation: soft Back/Spine no CVA tenderness Extremity Extremity Narrative: There are venous stasis changes consistent venous stasis dermatitis. There is evidence of partial-thickness burn with blistering of the right index long and ring finger. General Extremety ED: Yes edema; Negative for tenderness General Extremity: edema Neuro oriented x3, CN's II-XII intact bilaterally and no sensory deficits noted Miguel Coma Scale: document GCS findings Spontaneous Obeys Commands Oriented 15 Psych mental status grossly normal Skin Skin Narrative: Venous stasis dermatitis with evidence of dyshidrotic eczema as well. General Skin Exam: Negative for jaundice or pallor MDM MDM MDM Narrative Medical decision making narrative: Patient presents with purulent cough. Chest x-ray obtained to assess for pneumonia versus purulent bronchitis. Has patient is wheezing and has recent been on prednisone she was treated with DuoNeb, albuterol and Solu-Medrol. CBC was obtained to assess white count differential. Also to rule out anemia. EKG to evaluate for cardiac ischemia as a cause of her dyspnea. Electrolyte panel was obtained to assess for endorgan dysfunction in the event she has a pneumonia on her right. Patient's initial blood pressure was elevated. Repeat is 120/45. Lab Data Attestation: I reviewed the patient's lab results. Lab results narrative: White count is elevated. Patient had multiple elevated white count. This may be due to infection or due to the fact he was recently on prednisone. Patient does have lactic acidosis may be due to frequent aerosol use. This was reported in Journal of chest in the early 90s. Glucose is elevated at 232 with a normal CO2 and anion gap. Labs: Laboratory Results - last 24 hr 12/09/22 12/09/22 12/09/22 12:20 12:20 12:30 WBC 13.3 H RBC 4.25 Hgb 12.0 Hct 41.2 MCV 96.9 MCH 28.2 MCHC 29.1 L RDW Std Deviation 62.4 H RDW Coeff of Darrion 17.6 H Plt Count 297 MPV 9.8 Immature Gran % (Auto) 1.300 H Neut % (Auto) 78.2 H Lymph % (Auto) 15.5 L [place] % (Auto) 2.8 Eos % (Auto) 1.4 Baso % (Auto) 0.8 Absolute Neuts (auto) 10.4 H Absolute Lymphs (auto) 2.05 Nucleated RBC % 0.5 Sodium 137 Potassium 4.3 Chloride 101 Carbon Dioxide 30.0 Anion Gap 6 BUN 16 Creatinine 0.97 Estim Creat Clear Calc 71.22 Est GFR (MDRD) Af Amer 80 Est GFR (MDRD) Non-Af 66 BUN/Creatinine Ratio 16.5 Glucose 232 H Lactic Acid 3.2 H* Calcium 9.0 Radiography Chest X-Ray - ED: 2 View (2 view chest x-ray independently reviewed and interpreted by me at 1334 as negative for acute process. Limited inspiratory volume. Cardiac silhouette is unremarkable. There may be borderline cardiomegaly. There is no evidence of infiltrate. There is no effusion. Osseous structures are unremark) Diagnostic Testing: Clinical Impression(s) from Imaging Studies Chest X-Ray 12/09/22 13:30 IMPRESSION: No acute pulmonary process, no interval change Electronically Signed: Johnnie Sutton MD at 13:46 EST Reading Location ID and State: [facility] / ID , Service support , EKG Initial EKG: Attestation: I personally reviewed and interpreted this EKG as follows: Interpretation: Sinus Rhythm (Normal sinus rhythm rate of 96. The EKG is normal. ID interval is 142 ms. Cures duration 80 ms. QT duration 3 and 50 ms. Nelson is normal) Discharge Plan Triage Chief Complaint: Shortness of Breath Other Complaint: Burn ED Provider: Jozef Kaiser Dx/Rx/DC Orders Clinical Impression: Acute exacerbation of chronic bronchitis, Hyperglycemia, Restrictive lung disease secondary to obesity, Chronic respiratory failure with hypoxia, Chronic diastolic (congestive) heart failure, Acute exacerbation of chronic obstructive pulmonary disease, Acute bronchospasm, Burn of multiple fingers of right hand excluding thumb Instructions: ED First- and Second-Degree Dong ..., ED COPD Flare Prescriptions: New prednisone 20 mg tablet 60 mg PO DAILY Qty: 12 0RF doxycycline monohydrate 100 mg capsule 100 mg PO BID Qty: 14 0RF No Action loratadine 10 mg tablet 10 mg PO DAILY PRN (Reason: Allergies) lisinopril 10 mg tablet 10 mg PO DAILY Label Comments: TAKE 1 TABLET BY MOUTH EVERY DAY metformin 500 mg tablet extended release 24 hr 2,000 mg PO DAILY metoprolol succinate 25 mg tablet extended release 24 hr 25 mg PO DAILY Label Comments: TAKE 1 TABLET BY MOUTH EVERY DAY atorvastatin 80 mg tablet 100 mg PO QHS [id number] 1 EACH tablet 1 ea PO DAILY Label Comments: vitamin omeprazole 40 MG capsule,delayed release(DR/EC) 40 mg PO DAILY diltiazem HCl 120 MG capsule 120 mg PO DAILY apixaban 5 MG tablet 5 mg PO BID Trulicity 4.5 mg/0.5 mL pen injector 4.5 mg SUBCUT WE Label Comments: Inject 4.5 mg subcutaneously one time a week. furosemide 40 mg tablet 40 mg PO BID Label Comments: Take 1 tablet by mouth twice daily. insulin lispro [Humalog KwikPen Insulin] 100 unit/mL Insulin Pen 50 unit subcut TIDAC Qty: 0 0RF ammonium lactate 12 % Lotion 1 applic topical TID 30 Days Qty: 400 0RF Protocol: *Topical Application Instructions APPLICATION INSTRUCTIONS: apply to both legs and affected dry areas of the body insulin degludec [Tresiba FlexTouch U-200] 200 unit/mL (3 mL) insulin pen 95 unit SUBCUT BID 30 Days Qty: 28.5 0RF Label Comments: INJECT 100 UNITS SUBCUTANEOUSLY TWICE DAILY (this replaces levemir) albuterol sulfate 2.5 mg /3 mL (0.083 %) solution for nebulization 2.5 mg inhalation Q4H PRN (Reason: SOB) gabapentin 800 mg tablet 800 mg PO TID furosemide 20 mg tablet 20 mg PO DAILY fenofibrate nanocrystallized 145 mg tablet 145 mg PO DAILY Jardiance 10 mg tablet 10 mg PO DAILY nicotine (polacrilex) 2 mg mini lozenge 2 mg PO PRN PRN (Reason: Smoking Cessation) Toujeo Max U-300 SoloStar 300 unit/mL (3 mL) insulin pen 150 unit SUBCUT DAILY potassium chloride 20 mEq tablet extended release 20 meq PO BID Qty: 60 11RF Primary Care Provider: Tino Oreilly Referrals: Tino Oreilly MD [Primary Care Provider] - 3-5 Days if not improving Disposition Disposition: Home, Self Care
[2022-12-09] MEDS: MethylPREDNISolone 125 MG/2 ML Vial IV (12:33)
[2022-12-09] MEDS: Ipratropium/Albuterol Sulfate 3 ML AMPUL.NEB INHALATION (12:36)
[2022-12-09] MEDS: Albuterol 2.5 MG/3 ML VIAL.NEB. INHALATION ×3 (12:36→13:04)
[2022-12-09 12:37] LABS: Absolute Lymphocyte Count 2.05 X10^3/uL (0.83-4.51); Absolute Neutrophil Count 10.4 X10^3/uL (2.0-7.7); Basophil# 0.11 X10^3/uL; Basophil% 0.8 % (0-1); Eosinophil# 0.18 X10^3/uL; Eosinophils% 1.4 % (0-5); Hematocrit 41.2 % (37-47); Lymphocyte # 2.05 X10^3/ul (0.83-4.51); Lymphocyte % 15.5 % (19-41); Mean Corp Hgb Conc 29.1 g/dL (32-36); Mean Corpuscular Hgb 28.2 pg (27.0-32.0); Mean Corpuscular Volume 96.9 fL (81-99); Mean Platelet Vol. 9.8 fl (6.2-12.0); Monocyte# 0.37 X10^3/uL; Monocyte% 2.8 % (0-10); NRBC Flagged by Analyzer 0.5 % (0-5); Neutrophil # 10.38 X10^3/uL (2.7-7.7); Neutrophil % 78.2 % (47-70); Platelet Count 297 K/mm3 (150-450); RBC Distribution Width CV 17.6 % (11.6-14.6); RBC Distribution Width SD 62.4 fl (35.1-43.9); Red Blood Count 4.25 M/mm3 (4.2-5.4); White Blood Count 13.3 K/mm3 (4.4-11.0)
[2022-12-09 12:38] VITALS: RESP 18; O2SAT 94
[2022-12-09 12:49] LABS: Anion Gap 6 (5-15); BUN 16 mg/dL (7-18); BUN/Creat Ratio 16.5 RATIO (10-20); Chloride 101 mmol/L (98-107); Creatinine, Serum 0.97 mg/dL (0.55-1.02); EST Glomerular Filtration Rate 66 mL/min (>60); Est Glom Filt Rate - Afr Amer 80 mL/min (>60); Estimated Creatinine Clearance 71.22 ml/min; Glucose 232 mg/dL (74-106); Potassium 4.3 mmol/L (3.5-5.1); Sodium Level 137 mmol/L (136-145)
[2022-12-09 12:55] VITALS: BP 120/45; PULSE 96; RESP 23; O2SAT 94
[2022-12-09 13:14] LABS: Lactic Acid 3.2 mmol/L (0.4-1.9)
--- NOTE | 2022-12-09 13:30 | RAD_ITS ---
STUDY: X-RAY CHEST REASON FOR EXAM: Female, 47 years old. Dyspnea, wheezing and productive cough TECHNIQUE: PA and lateral views of the chest. COMPARISON: 11/19/2022 FINDINGS: EKG leads overlie the chest The lungs are clear and expanded. There is no demonstrated pleural abnormality. Normal size heart. Normal mediastinum and evi. Normal visualized pulmonary arteries. Normal visualized aortic arch and descending thoracic aorta. Normal visualized thoracic spine. Normal visualized ribs, clavicles, and shoulders. There is no demonstrated abnormality of the visualized soft tissue structures of the upper abdomen. RAD/Chest PA and Lateral IMPRESSION: No acute pulmonary process, no interval change Electronically Signed: Johnnie Sutton MD at 13:46 EST ,
[2022-12-09 14:17] VITALS: BP 111/87; PULSE 98
[2022-12-09 16:37] LABS: Reflex Lactate? Y
== END 2022-12-09 14:18 | disposition home or self-care (01) ==
PROVIDERS: Emergency Provider Emergency Medicine; PCP Family Medicine; Visit Provider Emergency Medicine
DX: J20.9 Acute bronchitis, unspecified (principal); J44.0 Chronic obstructive pulmonary disease with (acute) lower respiratory infection; J44.1 Chronic obstructive pulmonary disease with (acute) exacerbation; I11.0 Hypertensive heart disease with heart failure; I50.32 Chronic diastolic (congestive) heart failure; E11.65 Type 2 diabetes mellitus with hyperglycemia; J96.11 Chronic respiratory failure with hypoxia; E66.01 Morbid (severe) obesity due to excess calories; Z68.43 Body mass index [BMI] 50.0-59.9, adult; Z79.4 Long term (current) use of insulin; T23.231A Burn of second degree of multiple right fingers (nail), not including thumb, initial encounter; X08.8XXA Exposure to other specified smoke, fire and flames, initial encounter; E78.5 Hyperlipidemia, unspecified; G47.33 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 (adult) (pediatric); I25.2 Old myocardial infarction; Z87.891 Personal history of nicotine dependence; Z99.81 Dependence on supplemental oxygen; Z79.899 Other long term (current) drug therapy; E87.20 Acidosis, unspecified
CPT/HCPCS: 71046; 80048; 83605; 85025; 93005; 94640; 96374; 99252; 99284; A4216; G0463

== ENCOUNTER 2022-12-18 21:33 | Inpatient (IN) | payer MEDICARE, MEDICAID, SELFPAY ==
[2022-12-18 21:35] VITALS: BP 159/120; PULSE 100; RESP 16; TEMP 36.6; O2SAT 93; BMI 61.9
--- NOTE | 2022-12-18 21:54 | EKG12_ITS ---
Test Reason : DYSRHYTHMIA Blood Pressure : / mmHG Vent. Rate : 099 BPM Atrial Rate : 099 BPM P-R Int : 150 ms QRS Dur : 084 ms QT Int : 332 ms P-R-T Axes : 054 007 062 degrees QTc Int : 426 ms Sinus rhythm with Fusion complexes Otherwise normal ECG Confirmed by LORENA LORA, HEATHER ([id number]), editor greeting card DANIELE MALDONADO ([id number]) on 12/19/2022 1:39:52 PM Referred By: BILLY Confirmed By:MU CARRILLO MD
--- NOTE | 2022-12-18 21:55 | EDS_ITS ---
HPI History of Present Illness Chief Complaint: Weakness Informant: patient and family Narrative Narrative: Patient presents secondary to generalized weakness and unable to ambulate. She has a history of COPD. She normally wears oxygen at 3 to 4 L. She supposed to wear CPAP also. Patient's roommate is paraplegic and was unable to get up to check on her today. They stated the patient was sleeping all day and family had trouble arousing her tonight. She fell asleep without her oxygen or CPAP on. EMS was called out to the house twice as she refused transport the first time. When she realized she was too weak to get up and walk she agreed to transport. [facility] Medical History Abscess Abscess of vulva KERRY (acute kidney injury) Anxiety BiPAP (biphasic positive airway pressure) dependence Chronic diastolic (congestive) heart failure Chronic respiratory failure with hypoxia Contusion of knee, right COPD (chronic obstructive pulmonary disease) Depression Diabetes Dyspnea on exertion Essential hypertension GERD (gastroesophageal reflux disease) Hidradenitis History of left heart catheterization (LHC) (~01/05/19) History of MRSA infection Hyperglycemia due to type 2 diabetes mellitus Hyperlipidemia Hypertension Morbid obesity Necrotizing soft tissue infection Non-healing open wound of left groin NSTEMI (non-ST elevated myocardial infarction) 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 Old myocardial infarction On home oxygen therapy Open wound of vulva with complication Opiate overdose Pulmonary embolism Respiratory failure with hypoxia Restrictive lung disease secondary to obesity Sleep apnea Smoker Soft tissue abscess of inguinal region Tobacco abuse Type 2 diabetes mellitus Home Medications multivit-iron 18 mg-folic acid 400 mcg-calcium 500 mg-minerals tablet 1 ea PO DAILY supplement 03/26/17 [History Last Taken 12/09/22] omeprazole 40 mg capsule,delayed release 40 mg PO DAILY GERD 12/15/18 [History Last Taken 12/09/22] loratadine 10 mg tablet 10 mg PO DAILY PRN Allergies 03/01/20 [History Last Taken 12/09/22] apixaban 5 mg tablet 5 mg PO BID blood thinner 08/20/20 [History Last Taken 12/09/22] diltiazem HCl 120 mg capsule,extended release 24 hr 120 mg PO DAILY heart rate 08/20/20 [History Last Taken 12/09/22] lisinopril 10 mg tablet 10 mg PO DAILY blood pressure 03/26/21 [History Last Taken 12/09/22] metformin 500 mg tablet,extended release 24 hr 2,000 mg PO DAILY diabetes 03/26/21 [History Last Taken 01/15/22] metoprolol succinate 25 mg tablet,extended release 24 hr 25 mg PO DAILY blood pressure 03/26/21 [History Last Taken 12/09/22] dulaglutide 4.5 mg/0.5 mL subcutaneous pen injector (Trulicity) 4.5 mg subcut WE DM 01/15/22 [History Last Taken 12/05/22] atorvastatin 80 mg tablet 100 mg PO QHS 02/07/22 [History Last Taken 12/09/22] potassium chloride 20 mEq tablet,extended release 20 meq PO BID #60 tabs 07/25/22 [Rx Last Taken 12/09/22] furosemide 40 mg tablet 40 mg PO BID diuretic 09/22/22 [History Last Taken 12/09/22] ammonium lactate 12 % lotion 1 applic topical TID 30 days #400 grams 09/24/22 [Rx Last Taken 12/08/22] insulin degludec 200 unit/mL (3 mL) subcutaneous pen (Tresiba FlexTouch U-200 insulin) 95 unit (0.475 mL) subcut BID DM 30 days #28.5 mL 09/24/22 [Rx Last Taken 12/09/22] insulin lispro 100 unit/mL subcutaneous pen (Humalog KwikPen (U-100) Insulin) 50 unit (0.5 mL) subcut TIDAC #0 mL 09/24/22 [Rx Last Taken 12/09/22] albuterol sulfate 2.5 mg/3 mL (0.083 %) solution for nebulization 2.5 mg inhalation Q4H PRN SOB 12/09/22 [History Last Taken 12/08/22] doxycycline monohydrate 100 mg capsule 100 mg PO BID #14 CAPSULES 12/09/22 [Rx Last Taken Unknown] empagliflozin 10 mg tablet (Jardiance) 10 mg PO DAILY DM 12/09/22 [History Last Taken 12/09/22] fenofibrate nanocrystallized 145 mg tablet 145 mg PO DAILY CHOLESTEROL 12/09/22 [History Last Taken 12/09/22] furosemide 20 mg tablet 20 mg PO DAILY diuretic 12/09/22 [History Last Taken Unknown] gabapentin 800 mg tablet 800 mg PO TID NERVE PAIN 12/09/22 [History Last Taken 12/09/22] insulin glargine U-300 conc 300 unit/mL (3 mL) subcutaneous pen (Toujeo Max U- 300 SoloStar) 150 unit subcut DAILY DM 12/09/22 [History Last Taken 12/09/22] nicotine (polacrilex) 2 mg buccal mini lozenge 2 mg PO PRN PRN Smoking Cessation 12/09/22 [History Last Taken 12/08/22] prednisone 20 mg tablet 60 mg PO DAILY #12 TABLETS 12/09/22 [Rx Last Taken Unknown] Allergy/AdvReac Type Severity Reaction Status Date / Time cyclobenzaprine HCl Allergy Hives Verified 12/18/22 21:44 [From Flexeril] venlafaxine [From Effexor] AdvReac Severe unknown Verified 12/18/22 21:44 Family History Father CVA (cerebral vascular accident) Heart disease Diabetes Mother Thyroid disorder Surgical History H/O arthroscopic knee surgery History of delivery History of cholecystectomy Social History household members: none Smoking Status: Current some day smoker tobacco type: cigarettes how long ago did patient quit smokin PPD smoker second hand exposure: Yes alcohol intake: never substance use type: does not use caffeine: Yes Type: carbonated beverages Number of servings: 1 and coffee Number of servings: 1 ROS ROS ED Constitutional Constitutional ED: Denies chills or fever(s) Eyes Eyes: Denies change in vision or discharge from eye(s) ENT ENT ED: Denies discharge from eye(s), rhinorrhea or sore throat Cardiovascular Cardiovascular: Denies chest pain or palpitations Respiratory/Chest Respiratory/Chest: Denies cough or dyspnea Gastrointestinal Gastrointestinal: Denies abdominal pain, nausea or vomiting Genitourinary Genitourinary ED: Denies difficulty urinating or dysuria Musculoskeletal Musculoskeletal: Denies back pain or extremity pain Integumentary Denies Abrasions or rash Neurologic Neurologic: Reports weakness; Denies headache(s) Allergic/Immunologic Allergic/Immunologic ED: Denies lip swelling or urticaria EXAM Physical Exam Narrative Exam Narrative: Patient sitting upright in bed no acute distress. She is alert and answering questions appropriately. Const Vital Signs: 12/18/22 21:35 Temperature 97.9 F Temperature Source Temporal Pulse Rate 100 Respiratory Rate 16 Blood Pressure 159/120 H Blood Pressure Mean 133 Pulse Ox 93 Oxygen Delivery Method Nasal Cannula Oxygen Flow Rate (L/min) 3 Positive well nourished, well developed and obese General Appearance ED: well developed Nutritional Appearance: obese HEENT Reports normocephalic and head/scalp atraumatic Eyes PERRL and EOMs intact bilaterally Neck supple Chest Wall inspection of chest normal and palpation of chest normal Resp normal respiratory effort Resp Narrative: Diminished breath sounds bilateral bases. Cardio regular rate and regular rhythm GI normal to inspection, nondistended, normoactive bowel sounds Palpation: soft Extremity Extremity Narrative: Bilateral lower extremity edema, symmetric Neuro oriented x3 Neuro Narrative: No focal neurologic deficits. Generalized weakness noted. Moves all extremities. Sensorium / Orientation: alert Psych mental status grossly normal Skin no rashes or lesions noted MDM MDM MDM Narrative Medical decision making narrative: Patient is placed on government affairs researcher. EKG, chest x-ray, lab work obtained. Urinalysis obtained along with an ABG. Lab Data Attestation: I reviewed the patient's lab results. Labs: Laboratory Results - last 24 hr 12/18/22 12/18/22 12/18/22 22:23 22:23 22:30 WBC 18.3 H RBC 4.04 L Hgb 11.5 L Hct 37.4 MCV 92.6 MCH 28.5 MCHC 30.7 L RDW Std Deviation 57.5 H RDW Coeff of Darrion 16.8 H Plt Count 251 MPV 10.0 Immature Gran % (Auto) 0.800 Neut % (Auto) 84.5 H Lymph % (Auto) 8.9 L [place] % (Auto) 5.2 Eos % (Auto) 0.3 Baso % (Auto) 0.3 Absolute Neuts (auto) 15.5 H Absolute Lymphs (auto) 1.63 Nucleated RBC % 0 Sodium 130 L Potassium 5.6 H Chloride 98 Carbon Dioxide 27.0 Anion Gap 5 BUN 80 H Creatinine 2.37 H Estim Creat Clear Calc 29.15 Est GFR (MDRD) Af Amer 28 L Est GFR (MDRD) Non-Af 24 L BUN/Creatinine Ratio 33.8 H Glucose 171 H Calcium 8.6 Troponin I High Sens 22 Urine Color Yellow Urine Clarity Clear Urine pH 6.0 Ur Specific [place] 1.010 Urine Protein Negative Urine Glucose (UA) 250 H Urine Ketones Negative Urine Occult Blood Negative Urine Nitrite Negative Urine Bilirubin Negative Urine Urobilinogen Normal Ur Leukocyte Esterase Negative Urine RBC 0 SEEN Urine WBC 0 SEEN Ur Squamous Epith Cells 0 SEEN Urine Bacteria 1+ Urine Mucus 0 SEEN Urine Yeast RARE ABG Data ABG results: ABG 12/18/22 22:43 Specimen Type ART Sample Site R Brach pH 7.30 L Bicarbonate Actual 26.7 H Total CO2 28 Base Excess 0 O2 Saturation 89 L ABG pCO2 53.7 H ABG pO2 63 L Meño Test Positive O2 Delivery Device Cannula Liter Flow 3.0 Radiography Chest X-Ray - ED: 1 View, Read by ED Physician and Chronic Changes Diagnostic Testing: Clinical Impression(s) from Imaging Studies Chest X-Ray 12/18/22 22:40 IMPRESSION: No radiographic evidence of acute cardiopulmonary disease. Electronically Signed: Leonides Lakhani MD at 22:59 EST , EKG Initial EKG: Attestation: I personally reviewed and interpreted this EKG as follows: Interpretation: Sinus Rhythm (Sinus at 99 with no acute ischemia.) Treatment and Re-Evaluation Narrative: CBC reveals elevated white count at 18.3 with 84% neutrophils. Patient denies f ever or chills. She is just finishing up a course of antibiotics for bronchitis and was on a steroid burst. Chemistry studies are significant for sodium low at 130 and a chloride of 98. Potassium is elevated at 5.6. BUN is 80 and creatinine is 2.37. This is compared to a creatinine of 0.97 nine days ago. Urinalysis reveals no evidence of acute infection. Chest x-ray per my interpretation reveals no obvious infiltrate. Radiology interpretation is reviewed. EKG is sinus with no acute ischemia. ABG was obtained. pH is 7.30, PCO2 is 53, PO2 of 63, pulse ox is 89% on 3 L nasal cannula. Patient is to wear CPAP with sleep. At this time she is alert and answering questions appropriately. IV fluids have been initiated. With patient unable to ambulate or care for herself also the hospitalist regarding admission for treatment of KERRY as well as her inability to ambulate. Discharge Plan Triage Chief Complaint: Weakness ED Provider: Irina Quintero Dx/Rx/DC Orders Clinical Impression: KERRY (acute kidney injury), Unable to ambulate Prescriptions: No Action loratadine 10 mg tablet 10 mg PO DAILY PRN (Reason: Allergies) lisinopril 10 mg tablet 10 mg PO DAILY Label Comments: TAKE 1 TABLET BY MOUTH EVERY DAY metformin 500 mg tablet extended release 24 hr 2,000 mg PO DAILY metoprolol succinate 25 mg tablet extended release 24 hr 25 mg PO DAILY Label Comments: TAKE 1 TABLET BY MOUTH EVERY DAY atorvastatin 80 mg tablet 100 mg PO QHS [id number]-calcium-mins 1 EACH tablet 1 ea PO DAILY Label Comments: vitamin omeprazole 40 MG capsule,delayed release(DR/EC) 40 mg PO DAILY diltiazem HCl 120 MG capsule 120 mg PO DAILY apixaban 5 MG tablet 5 mg PO BID Trulicity 4.5 mg/0.5 mL pen injector 4.5 mg SUBCUT WE Label Comments: Inject 4.5 mg subcutaneously one time a week. furosemide 40 mg tablet 40 mg PO BID Label Comments: Take 1 tablet by mouth twice daily. insulin lispro [Humalog KwikPen Insulin] 100 unit/mL Insulin Pen 50 unit subcut TIDAC Qty: 0 0RF ammonium lactate 12 % Lotion 1 applic topical TID 30 Days Qty: 400 0RF Protocol: *Topical Application Instructions APPLICATION INSTRUCTIONS: apply to both legs and affected dry areas of the body insulin degludec [Tresiba FlexTouch U-200] 200 unit/mL (3 mL) insulin pen 95 unit SUBCUT BID 30 Days Qty: 28.5 0RF Label Comments: INJECT 100 UNITS SUBCUTANEOUSLY TWICE DAILY (this replaces levemir) albuterol sulfate 2.5 mg /3 mL (0.083 %) solution for nebulization 2.5 mg inhalation Q4H PRN (Reason: SOB) gabapentin 800 mg tablet 800 mg PO TID furosemide 20 mg tablet 20 mg PO DAILY fenofibrate nanocrystallized 145 mg tablet 145 mg PO DAILY Jardiance 10 mg tablet 10 mg PO DAILY nicotine (polacrilex) 2 mg mini lozenge 2 mg PO PRN PRN (Reason: Smoking Cessation) Toujeo Max U-300 SoloStar 300 unit/mL (3 mL) insulin pen 150 unit SUBCUT DAILY prednisone 20 mg tablet 60 mg PO DAILY Qty: 12 0RF doxycycline monohydrate 100 mg capsule 100 mg PO BID Qty: 14 0RF potassium chloride 20 mEq tablet extended release 20 meq PO BID Qty: 60 11RF Primary Care Provider: Tino Oreilly Referrals: Tino Oreilly MD [Primary Care Provider] - Disposition Disposition: Acute Care Hospital [facility]
[2022-12-18 22:39] LABS: Mucous, Urine 0 SEEN /hpf (<or=2+); Red Blood Cells-Urine 0 SEEN /hpf (0-5); Squamous Epithelial Cells - UA 0 SEEN /hpf (5-10); White Blood Cells 0 SEEN /hpf (0-5)
--- NOTE | 2022-12-18 22:40 | RAD_ITS ---
INDICATION: SOB EXAMINATION/TECHNIQUE: X-RAY - XR Chest 1 View COMPARISON: 12/09/2022 FINDINGS: LINES/DEVICES: None. LUNGS: No consolidation, edema or effusion. No pneumothorax. MEDIASTINUM AND CARDIOVASCULAR STRUCTURES: Cardiac silhouette not enlarged. Central airways and mediastinal contour are unremarkable. RAD/Chest 1 View (Portable) IMPRESSION: No radiographic evidence of acute cardiopulmonary disease. Electronically Signed: Leonides Lakhani MD at 22:59 EST ,
[2022-12-18 22:50] LABS: Absolute Lymphocyte Count 1.63 X10^3/uL (0.83-4.51); Absolute Neutrophil Count 15.5 X10^3/uL (2.0-7.7); Basophil# 0.05 X10^3/uL; Basophil% 0.3 % (0-1); Eosinophil# 0.05 X10^3/uL; Eosinophils% 0.3 % (0-5); Hematocrit 37.4 % (37-47); Hemoglobin 11.5 g/dL (12.0-15.0); Lymphocyte # 1.63 X10^3/ul (0.83-4.51); Lymphocyte % 8.9 % (19-41); Mean Corp Hgb Conc 30.7 g/dL (32-36); Mean Corpuscular Hgb 28.5 pg (27.0-32.0); Mean Corpuscular Volume 92.6 fL (81-99); Monocyte# 0.96 X10^3/uL; Monocyte% 5.2 % (0-10); NRBC Flagged by Analyzer 0 % (0-5); Neutrophil # 15.49 X10^3/uL (2.7-7.7); Neutrophil % 84.5 % (47-70); Platelet Count 251 K/mm3 (150-450); RBC Distribution Width CV 16.8 % (11.6-14.6); RBC Distribution Width SD 57.5 fl (35.1-43.9); Red Blood Count 4.04 M/mm3 (4.2-5.4); White Blood Count 18.3 K/mm3 (4.4-11.0)
[2022-12-18 22:51] LABS: Allen Test Positive; Base Excess 0 mmol/L (-2 to +2); Bicarbonate 26.7 mmol/L (22-26); Blood Gas Specimen Type ART; O2 Delivery Device Cannula; PO2 63 mmHG (75-100); SITE R Brach; SO2 89 % (95-99); Total Carbon Dioxide 28 mmol/L; pCO2 53.7 mmHg (35-45)
[2022-12-18 22:58] LABS: Color, Urine Yellow (Yellow); Glucose, Dipstick 250 mg/dl (Normal); Ketone-Dipstick Negative (Negative); Leukocyte Esterase-Dipstick Negative /ul (Negative); Nitrite-Dipstick Negative (Negative); Occult Blood-Urine Negative /ul (Negative); Protein-Dipstick Negative (Negative); Urine Bilirubin Dipstick Negative (Negative); Urine Clarity Clear (Clear); Urine Urobilinogen Normal (Normal)
[2022-12-18 23:04] LABS: Bacteria 1+ /hpf (None Seen); Yeast-Urine RARE /hpf (None Seen)
[2022-12-18 23:09] LABS: Anion Gap 5 (5-15); BUN 80 mg/dL (7-18); BUN/Creat Ratio 33.8 RATIO (10-20); Calcium,Total 8.6 mg/dL (8.5-10.1); Chloride 98 mmol/L (98-107); Creatinine, Serum 2.37 mg/dL (0.55-1.02); EST Glomerular Filtration Rate 24 mL/min (>60); Est Glom Filt Rate - Afr Amer 28 mL/min (>60); Estimated Creatinine Clearance 29.15 ml/min; Glucose 171 mg/dL (74-106); Potassium 5.6 mmol/L (3.5-5.1); Sodium Level 130 mmol/L (136-145); Troponin-I HS 22 pg/mL (3.0-54.0)
[2022-12-18 23:35] VITALS: BP 153/104; BP 93/50; PULSE 100; PULSE 101; RESP 16; RESP 20; TEMP 36.6; O2SAT 91; O2SAT 92
[2022-12-18] MEDS: 0.9% Normal Saline 1,000 ML 150 ML IV (23:44)
--- NOTE | 2022-12-18 23:45 | HP.PCM.HOS_ITS ---
HPI - General General Date of Admission: 12/18/22 Date of Service: 12/19/22 Chief Complaint: Somnolence HPI Narrative MACARIO OVERTON, is a 47 F with a significant history of morbid obesity; diabetes mellitus; hypertension; and tobacco abuse who presents to emergency department with somnolence. Patient's family was called because patient was in bed all day. Reportedly patient family called paramedics to check on patient. When paramedics arrived patient refused to come to the emergency department. Patient's family later went to check on her and realized that patient could not walk. Paramedics were called and patient was brought to the emergency department. Patient uses 4 to 5 L nasal cannula oxygen [id number] and CPAP at night to sleep. Reportedly patient did not use either her CPAP oxygen on the day of presentation. [facility] Medical History (Updated 12/19/22 @ 00:[address] Chris Gill MD) Abscess Abscess of vulva KERRY (acute kidney injury) Anxiety BiPAP (biphasic positive airway pressure) dependence Chronic diastolic (congestive) heart failure Chronic respiratory failure with hypoxia Contusion of knee, right COPD (chronic obstructive pulmonary disease) Depression Diabetes Dyspnea on exertion Essential hypertension GERD (gastroesophageal reflux disease) Hidradenitis History of left heart catheterization (LHC) (~01/05/19) History of MRSA infection Hyperglycemia due to type 2 diabetes mellitus Hyperlipidemia Hypertension Morbid obesity Necrotizing soft tissue infection Non-healing open wound of left groin NSTEMI (non-ST elevated myocardial infarction) 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 Old myocardial infarction On home oxygen therapy Open wound of vulva with complication Opiate overdose Pulmonary embolism Respiratory failure with hypoxia Restrictive lung disease secondary to obesity Sleep apnea Smoker Soft tissue abscess of inguinal region Tobacco abuse Type 2 diabetes mellitus Home Medications multivit-iron 18 mg-folic acid 400 mcg-calcium 500 mg-minerals tablet 1 ea PO DAILY supplement 03/26/17 [History Last Taken 12/09/22] omeprazole 40 mg capsule,delayed release 40 mg PO DAILY GERD 12/15/18 [History Last Taken 12/09/22] loratadine 10 mg tablet 10 mg PO DAILY PRN Allergies 03/01/20 [History Last Taken 12/09/22] apixaban 5 mg tablet 5 mg PO BID blood thinner 08/20/20 [History Last Taken 12/09/22] diltiazem HCl 120 mg capsule,extended release 24 hr 120 mg PO DAILY heart rate 08/20/20 [History Last Taken 12/09/22] lisinopril 10 mg tablet 10 mg PO DAILY blood pressure 03/26/21 [History Last Álvaro en 12/09/22] metformin 500 mg tablet,extended release 24 hr 2,000 mg PO DAILY diabetes 03/26/21 [History Last Taken 01/15/22] metoprolol succinate 25 mg tablet,extended release 24 hr 25 mg PO DAILY blood pressure 03/26/21 [History Last Taken 12/09/22] dulaglutide 4.5 mg/0.5 mL subcutaneous pen injector (Trulicity) 4.5 mg subcut WE DM 01/15/22 [History Last Taken 12/05/22] atorvastatin 80 mg tablet 100 mg PO QHS 02/07/22 [History Last Taken 12/09/22] potassium chloride 20 mEq tablet,extended release 20 meq PO BID #60 tabs 07/25/22 [Rx Last Taken 12/09/22] furosemide 40 mg tablet 40 mg PO BID diuretic 09/22/22 [History Last Taken 12/09/22] ammonium lactate 12 % lotion 1 applic topical TID 30 days #400 grams 09/24/22 [Rx Last Taken 12/08/22] insulin degludec 200 unit/mL (3 mL) subcutaneous pen (Tresiba FlexTouch U-200 insulin) 95 unit (0.475 mL) subcut BID DM 30 days #28.5 mL 09/24/22 [Rx Last Taken 12/09/22] insulin lispro 100 unit/mL subcutaneous pen (Humalog KwikPen (U-100) Insulin) 50 unit (0.5 mL) subcut TIDAC #0 mL 09/24/22 [Rx Last Taken 12/09/22] albuterol sulfate 2.5 mg/3 mL (0.083 %) solution for nebulization 2.5 mg inhalation Q4H PRN SOB 12/09/22 [History Last Taken 12/08/22] doxycycline monohydrate 100 mg capsule 100 mg PO BID #14 CAPSULES 12/09/22 [Rx Last Taken Unknown] empagliflozin 10 mg tablet (Jardiance) 10 mg PO DAILY DM 12/09/22 [History Last Taken 12/09/22] fenofibrate nanocrystallized 145 mg tablet 145 mg PO DAILY CHOLESTEROL 12/09/22 [History Last Taken 12/09/22] furosemide 20 mg tablet 20 mg PO DAILY diuretic 12/09/22 [History Last Taken Unknown] gabapentin 800 mg tablet 800 mg PO TID NERVE PAIN 12/09/22 [History Last Taken 12/09/22] insulin glargine U-300 conc 300 unit/mL (3 mL) subcutaneous pen (Toujeo Max U- 300 SoloStar) 150 unit subcut DAILY DM 12/09/22 [History Last Taken 12/09/22] nicotine (polacrilex) 2 mg buccal mini lozenge 2 mg PO PRN PRN Smoking Cessation 12/09/22 [History Last Taken 12/08/22] prednisone 20 mg tablet 60 mg PO DAILY #12 TABLETS 12/09/22 [Rx Last Taken Unknown] Allergy/AdvReac Type Severity Reaction Status Date / Time cyclobenzaprine HCl Allergy Hives Verified 12/18/22 21:44 [From Flexeril] venlafaxine [From Effexor] AdvReac Severe unknown Verified 12/18/22 21:44 Family History Father CVA (cerebral vascular accident) Heart disease Diabetes Mother Thyroid disorder Surgical History H/O arthroscopic knee surgery History of delivery History of cholecystectomy Social History household members: none Smoking Status: Current some day smoker tobacco type: cigarettes how long ago did patient quit smokin PPD smoker second hand exposure: Yes alcohol intake: never substance use type: does not use caffeine: Yes Type: carbonated beverages Number of servings: 1 and coffee Number of servings: 1 ROS ROS Narrative Pertinent positives and pertinent negatives as noted in HPI. All other systems were reviewed and are negative Vital Signs Vital Signs Vital Signs: 12/18/22 21:35 Temperature 97.9 F Temperature Source Temporal Pulse Rate 100 Respiratory Rate 16 Blood Pressure 159/120 H Blood Pressure Mean 133 Pulse Ox 93 Oxygen Delivery Method Nasal Cannula Oxygen Flow Rate (L/min) 3 Weight Weight: 179.4 kg Body Mass Index (BMI) 61.9 Physical Exam Narrative Physical exam: General: Morbidly obese Head: Normocephalic, atraumatic, no tenderness Eyes: Vision is grossly intact. EOMI ENT, no trauma, dry mucous membranes, no rhinorrhea Neck: Nontender, No thyromegaly. CVS: Regular rate and rhythm. S1-S2 present. No murmur, gallop or rub. Respiratory : Diminished, chest wall nontender, no wheezing Abdomen: Soft, nontender, nondistended, normal bowel sounds, no masses : Deferred Back: Nontender, no CVA tenderness, no midline spinal tenderness, Extremities: Nontender full range of motion, no trauma Skin: Normal color, no trauma, abrasions Neuro: Alert, oriented, cranial nerves II through XII grossly intact. Psychiatry: Normal mood. Normal affect. Not depressed. Not anxious. Results Lab / Micro Data Result Diagrams: 12/18/22 22:23 12/18/22 22:23 Labs: Laboratory Results - last 24 hr 12/18/22 22:23: WBC 18.3 H, RBC 4.04 L, Hgb 11.5 L, Hct 37.4, MCV 92.6, MCH 28.5, MCHC 30.7 L, RDW Std Deviation 57.5 H, RDW Coeff of Darrion 16.8 H, Plt Count 251, MPV 10.0, Immature Gran % (Auto) 0.800, Neut % (Auto) 84.5 H, Lymph % (Auto) 8.9 L, [place] % (Auto) 5.2, Eos % (Auto) 0.3, Baso % (Auto) 0.3, Absolute Neuts (auto) 15.5 H, Absolute Lymphs (auto) 1.63, Nucleated RBC % 0 12/18/22 22:23: Sodium 130 L, Potassium 5.6 H, Chloride 98, Carbon Dioxide 27.0, Anion Gap 5, BUN 80 H, Creatinine 2.37 H, Estim Creat Clear Calc 29.15, Est GFR (MDRD) Af Amer 28 L, Est GFR (MDRD) Non-Af 24 L, BUN/Creatinine Ratio 33.8 H, Glucose 171 H, Calcium 8.6, Troponin I High Sens 22 12/18/22 22:30: Urine Color Yellow, Urine Clarity Clear, Urine pH 6.0, Ur Specific [place] 1.010, Urine Protein Negative, Urine Glucose (UA) 250 H, Urine Ketones Negative, Urine Occult Blood Negative, Urine Nitrite Negative, Urine Bilirubin Negative, Urine Urobilinogen Normal, Ur Leukocyte Esterase Negative, Urine RBC 0 SEEN, Urine WBC 0 SEEN, Ur Squamous Epith Cells 0 SEEN, Urine [place] 1+, Urine Mucus 0 SEEN, Urine Yeast RARE ABG Data ABG results: ABG 12/18/22 22:43 Specimen Type ART Sample Site R Brach pH 7.30 L Bicarbonate Actual 26.7 H Total CO2 28 Base Excess 0 O2 Saturation 89 L ABG pCO2 53.7 H ABG pO2 63 L Meño Test Positive O2 Delivery Device Cannula Liter Flow 3.0 Radiology Impression Chest X-Ray 12/18/22 22:40 IMPRESSION: No radiographic evidence of acute cardiopulmonary disease. Electronically Signed: Leonides Lakhani MD at 22:59 EST , Assessment & Plan Assessment/Plan (1) Unable to ambulate: (2) KERRY (acute kidney injury): (3) Metabolic encephalopathy: (4) Type 2 diabetes mellitus: QUALIFIERS: Diabetes mellitus complication detail: with coma Diabetes mellitus complication status: with hyperosmolarity Diabetes mellitus long term care social worker insulin use: with long term care social worker use Qualified Code(s): E11.01 - Type 2 diabetes mellitus with hyperosmolarity with coma; Z79.4 - [facility] (current) use of insulin (5) Essential hypertension: PLAN: Plan KERRY on chronic kidney disease stage IIIA CKD Likely from Diabetic nephropathy Baseline creatinine of ~1.3. Creatinine on admission was 2.37. BUN is 80. BUN over creatinine is 33.8. Likely secondary to dehydration. IV hydration ordered. Trend BMP. Avoid nephrotoxic's. Acute metabolic encephalopathy Likely secondary to uremia. IV fluid as above. Trend BMP. Hyponatremia Sodium of 130. Likely secondary to hypovolemia. IV fluid as above. Trend. Hyperkalemia Potassium on presentation was 5.6. Likely secondary to dehydration. IV hydrat ion as above. Trend BMP. Diabetes mellitus with hyperglycemia Patient with mild hyperglycemia on presentation. Accu-Chek with correction scale insulin ordered. Debility/inability to ambulate PT notes work with patient. Case management consult. Morbid Obesity: BMI: 61kg/m?. Complicates care. Lifestyle modification recommended. Hypertension Erratic Trend blood pressures DVT prophylaxis Subcutaneous Lovenox ordered. Charges/Coding Visit Charges Inpatient E&M: 65489 Init Hosp L3
[2022-12-19] VITALS (10 sets, daily range): BP systolic 85–148; BP diastolic 31–64; PULSE 81–107; RESP 16–35; TEMP 36.7–37.7; O2SAT 93–96; BMI 60.1
[2022-12-19] MEDS: 0.9% Normal Saline 1,000 ML 100 ML IV ×3 (01:10→17:09)
[2022-12-19 05:43] LABS: Absolute Lymphocyte Count 1.65 X10^3/uL (0.83-4.51); Absolute Neutrophil Count 14.8 X10^3/uL (2.0-7.7); Basophil# 0.07 X10^3/uL; Basophil% 0.4 % (0-1); Eosinophil# 0.06 X10^3/uL; Eosinophils% 0.3 % (0-5); Hematocrit 34.4 % (37-47); Hemoglobin 10.5 g/dL (12.0-15.0); Lymphocyte # 1.65 X10^3/ul (0.83-4.51); Lymphocyte % 9.3 % (19-41); Mean Corp Hgb Conc 30.5 g/dL (32-36); Mean Corpuscular Hgb 28.6 pg (27.0-32.0); Mean Corpuscular Volume 93.7 fL (81-99); Mean Platelet Vol. 10.3 fl (6.2-12.0); Monocyte% 6.2 % (0-10); NRBC Flagged by Analyzer 0 % (0-5); Neutrophil # 14.78 X10^3/uL (2.7-7.7); Neutrophil % 83.2 % (47-70); Platelet Count 236 K/mm3 (150-450); RBC Distribution Width CV 16.9 % (11.6-14.6); RBC Distribution Width SD 58.3 fl (35.1-43.9); Red Blood Count 3.67 M/mm3 (4.2-5.4); White Blood Count 17.8 K/mm3 (4.4-11.0)
[2022-12-19 06:03] LABS: Anion Gap 7 (5-15); BUN 83 mg/dL (7-18); BUN/Creat Ratio 35.5 RATIO (10-20); Calcium,Total 8.1 mg/dL (8.5-10.1); Chloride 98 mmol/L (98-107); Creatinine, Serum 2.34 mg/dL (0.55-1.02); EST Glomerular Filtration Rate 24 mL/min (>60); Est Glom Filt Rate - Afr Amer 29 mL/min (>60); Estimated Creatinine Clearance 29.52 ml/min; Glucose 145 mg/dL (74-106); Potassium 5.1 mmol/L (3.5-5.1); Sodium Level 132 mmol/L (136-145)
[2022-12-19 07:00] LABS: Bedside Glucose 135 mg/dL (74-106)
[2022-12-19] MEDS: Enoxaparin 30 MG/0.3 ML Syringe SC (08:42)
[2022-12-19] MEDS: Insulin Lispro 100 UNIT/ML INSULN.PEN SC ×3 (11:19→21:52)
[2022-12-19 11:35] LABS: Bedside Glucose 162 mg/dL (74-106)
--- NOTE | 2022-12-19 12:59 | CASEMGMT ---
RN CM NOTE: RN CM placed call to pt's room and to her cell phone to attempt initial RN CM assessment. No answer on either #. RN CM to attempt at a later time. Abena RODRIGUEZN LORENZO CM
--- NOTE | 2022-12-19 13:50 | CASEMGMT ---
LORENZO GARCÍA Face to Face with patient for initial transition planning/care coordination assessment. RN RICKY introduced self and role at [facility]. Patient sitting in chair, alert and oriented. Patient willing to participate in assessment and is able to answer all questions appropriately. Care providers, pharmacy, and demographics verified. Patient wishes to discharge home with possible HHC. Patient states she has no further needs or concerns at this time. CM to follow for discharge planning needs that may arise. PCP: Afia Specialists: Marketing Information Analyst at [facility] Preferred Pharmacy: [facility] Insurance: [employer] Prescription Benefit: yes Living Will/HPOA: none LNOK: daughter, Living Arrangements: Patient lives with friend in a mobile home with 3 steps and railing to enter the home. Patient states she is independent at home. Transportation: daughter, niece DME/HHC: Patient has shower chair, cane, walker, nebulizer, pulse ox, bipap and home oxygen through [facility] with portability. No previous SNF. Patient has had HHC in the past with [facility]. Patient interested in HHC at discharge, CM to assist with referrals. Disposition Plan: Patient to discharge home with possible HHC, family support, and follow-up plans in place. Brandy SIMPSON, RN, CM
--- NOTE | 2022-12-19 14:53 | PN.HOSP_ITS ---
Subjective Subjective Somnolent but arousable Objective Data Objective Data Vital Signs: Vital Signs Temp Pulse Resp BP Pulse Ox O2 Del Method O2 Flow Rate 98.2 F 92 16 109/49 L 93 Nasal Cannula 4 12/19/22 08:43 12/19/22 08:43 12/19/22 08:43 12/19/22 08:43 12/19/22 08:43 12/19/22 09:26 12/19/22 12:45 FiO2 35 12/19/22 03:34 Oxygen Flow Rate (L/min) 4 Oxygen Delivery Method Nasal Cannula Weight: 383 lb 13.196 oz Body Mass Index (BMI) 60.1 Intake & Output: Intake and Output for Last 24 Hours 12/18/22 12/19/22 12/20/22 03:59 03:59 03:59 Intake Total 232.5 / 232.5 753.33 / 753.33 Output Total 450 / 450 Balance 232.5 / 232.5 303.33 / 303.33 Lab / Micro Data Result Diagrams: 12/19/22 05:09 12/19/22 05:09 Labs: Laboratory Results - last 24 hr 12/18/22 22:23: WBC 18.3 H, RBC 4.04 L, Hgb 11.5 L, Hct 37.4, MCV 92.6, MCH 28.5, MCHC 30.7 L, RDW Std Deviation 57.5 H, RDW Coeff of Darrion 16.8 H, Plt Count 251, MPV 10.0, Immature Gran % (Auto) 0.800, Neut % (Auto) 84.5 H, Lymph % (Auto) 8.9 L, [place] % (Auto) 5.2, Eos % (Auto) 0.3, Baso % (Auto) 0.3, Absolute Neuts (auto) 15.5 H, Absolute Lymphs (auto) 1.63, Nucleated RBC % 0 12/18/22 22:23: Sodium 130 L, Potassium 5.6 H, Chloride 98, Carbon Dioxide 27.0, Anion Gap 5, BUN 80 H, Creatinine 2.37 H, Estim Creat Clear Calc 29.15, Est GFR (MDRD) Af Amer 28 L, Est GFR (MDRD) Non-Af 24 L, BUN/Creatinine Ratio 33.8 H, Glucose 171 H, Calcium 8.6, Troponin I High Sens 22 12/18/22 22:30: Urine Color Yellow, Urine Clarity Clear, Urine pH 6.0, Ur Specific [place] 1.010, Urine Protein Negative, Urine Glucose (UA) 250 H, Urine Ketones Negative, Urine Occult Blood Negative, Urine Nitrite Negative, Urine Bilirubin Negative, Urine Urobilinogen Normal, Ur Leukocyte Esterase Negative, Urine RBC 0 SEEN, Urine WBC 0 SEEN, Ur Squamous Epith Cells 0 SEEN, Urine Bacteria 1+, Urine Mucus 0 SEEN, Urine Yeast RARE 12/19/22 05:09: WBC 17.8 H, RBC 3.67 L, Hgb 10.5 L, Hct 34.4 L, MCV 93.7, MCH 28.6, MCHC 30.5 L, RDW Std Deviation 58.3 H, RDW Coeff of Darrion 16.9 H, Plt Count 236, MPV 10.3, Immature Gran % (Auto) 0.600, Neut % (Auto) 83.2 H, Lymph % (Auto) 9.3 L, Franklin % (Auto) 6.2, Eos % (Auto) 0.3, Baso % (Auto) 0.4, Absolute Neuts (auto) 14.8 H, Absolute Lymphs (auto) 1.65, Nucleated RBC % 0 12/19/22 05:09: Sodium 132 L, Potassium 5.1, Chloride 98, Carbon Dioxide 27.0, Anion Gap 7, BUN 83 H, Creatinine 2.34 H, Estim Creat Clear Calc 29.52, Est GFR (MDRD) Af Amer 29 L, Est GFR (MDRD) Non-Af 24 L, BUN/Creatinine Ratio 35.5 H, Glucose 145 H, Calcium 8.1 L 12/19/22 06:29: POC Glucose 135 H 12/19/22 11:15: POC Glucose 162 H ABG Data ABG results: ABG 12/18/22 22:43 Specimen Type ART Sample Site R Brach pH 7.30 L Bicarbonate Actual 26.7 H Total CO2 28 Base Excess 0 O2 Saturation 89 L ABG pCO2 53.7 H ABG pO2 63 L Meño Test Positive O2 Delivery Device Cannula Liter Flow 3.0 Radiography Diagnostic Testing: Radiology Impression Chest X-Ray 12/18/22 22:40 IMPRESSION: No radiographic evidence of acute cardiopulmonary disease. Electronically Signed: Leonides Lakhani MD at 22:59 EST , Physical Exam Narrative General: Alert but drowsy, Oriented x3, Cooperative, No apparent distress, morbidly obese HEENT: Atraumatic, PERRLA, EOMI, Normocephalic Oral: Moist Mucosa Neck: Supple, No JVD Lungs: Diminished, Normal air movement, No rhonchi, No wheeze, No rales Cardiovascular: Regular rate, Regular Rhythm, Normal S1, Normal S2, No murmurs Abdomen: Soft, Non Tender, Non-Distended, No Hepato-splenomegaly Extremities: No edema, Capillary Refill Less than 3 Seconds Skin: No rashes, No breakdown Musculoskeletal: No Tenderness to Palpation of Joints or Extremities Neurological: Cranial nerves II-XII grossly intact, Motor Exam 5/5 strength throughout, Sensory exam intact to light touch and pain Psych/Mental Status: Flat affect, Appropriate Assessment & Plan Assessment/Plan (1) Unable to ambulate: (2) KERRY (acute kidney injury): (3) Metabolic encephalopathy: (4) Type 2 diabetes mellitus: QUALIFIERS: Diabetes mellitus long distance billing operator insulin use: with long distance billing operator use Diabetes mellitus complication status: with hyperosmolarity Diabetes mellitus complication detail: with coma Qualified Code(s): E11.01 - Type 2 diabetes mellitus with hyperosmolarity with coma; Z79.4 - alf (current) use of insulin (5) Essential hypertension: PLAN: Plan 1. KERRY on CKD 3a/acute metabolic encephalopathy/debility ? Jus encephalopathy is likely due to her acute renal failure ? Continue with IV fluids ? We will monitor renal function ? Attempting to verify her home medications ? PT/OT for evaluation 2. DM2/morbid obesity ? Continue with sliding scale insulin ? Accu-Cheks AC at bedtime ? We will make adjustment as necessary ? BMI of 60 3. COPD ? PCO2 is at baseline, she is slightly acidotic on ABG yesterday ? We will continue to encourage wearing her CPAP ? She did just complete a dose of steroids as well as a course of doxycycline she continues to have a leukocytosis we will monitor 4. HTN/HLD ? We will try to verify her home medications and restart her meds DVT: Lovenox Charges/Coding Visit Charges Inpatient E&M: 81368 Subs Hosp L2
[2022-12-19 17:26] LABS: Bedside Glucose 177 mg/dL (74-106)
[2022-12-19] MEDS: Acetaminophen 325 MG Tablet 650 MG PO (20:29)
[2022-12-19 22:16] LABS: Bedside Glucose 277 mg/dL (74-106)
[2022-12-19] MEDS: Albuterol 2.5 MG/3 ML VIAL.NEB. INHALATION (23:55)
[2022-12-20] MEDS: 0.9% Normal Saline 1,000 ML 100 ML IV ×2 (02:28→12:36)
[2022-12-20 03:00] VITALS: BP 128/64; PULSE 90; RESP 18; TEMP 37; O2SAT 97
[2022-12-20 05:41] LABS: Absolute Lymphocyte Count 1.45 X10^3/uL (0.83-4.51); Absolute Neutrophil Count 11.2 X10^3/uL (2.0-7.7); Basophil# 0.05 X10^3/uL; Basophil% 0.4 % (0-1); Eosinophil# 0.09 X10^3/uL; Eosinophils% 0.7 % (0-5); Hematocrit 34.5 % (37-47); Hemoglobin 10.5 g/dL (12.0-15.0); Lymphocyte # 1.45 X10^3/ul (0.83-4.51); Lymphocyte % 10.5 % (19-41); Mean Corp Hgb Conc 30.4 g/dL (32-36); Mean Corpuscular Hgb 28.8 pg (27.0-32.0); Mean Corpuscular Volume 94.5 fL (81-99); Mean Platelet Vol. 10.4 fl (6.2-12.0); Monocyte# 0.87 X10^3/uL; Monocyte% 6.3 % (0-10); NRBC Flagged by Analyzer 0 % (0-5); Neutrophil # 11.21 X10^3/uL (2.7-7.7); Neutrophil % 81.4 % (47-70); Platelet Count 225 K/mm3 (150-450); RBC Distribution Width CV 16.5 % (11.6-14.6); RBC Distribution Width SD 57.7 fl (35.1-43.9); Red Blood Count 3.65 M/mm3 (4.2-5.4); White Blood Count 13.8 K/mm3 (4.4-11.0)
[2022-12-20 06:10] LABS: Anion Gap 6 (5-15); BUN 56 mg/dL (7-18); Calcium,Total 9.1 mg/dL (8.5-10.1); Chloride 103 mmol/L (98-107); Creatinine, Serum 1.12 mg/dL (0.55-1.02); EST Glomerular Filtration Rate 56 mL/min (>60); Est Glom Filt Rate - Afr Amer 68 mL/min (>60); Estimated Creatinine Clearance 61.68 ml/min; Glucose 170 mg/dL (74-106); Potassium 4.8 mmol/L (3.5-5.1); Sodium Level 136 mmol/L (136-145)
[2022-12-20] MEDS: traMADol 50 MG Tablet PO (06:20)
[2022-12-20] MEDS: Insulin Lispro 100 UNIT/ML INSULN.PEN SC ×2 (06:23→12:36)
[2022-12-20 07:05] LABS: Bedside Glucose 168 mg/dL (74-106)
[2022-12-20 09:10] VITALS: BP 163/83; PULSE 104; RESP 18; TEMP 37.8; O2SAT 99
[2022-12-20 09:14] VITALS: PULSE 104
[2022-12-20] MEDS: Fenofibrate 145 MG Tablet PO (09:14)
[2022-12-20] MEDS: APIXABAN 5 MG TABLET PO (09:14)
[2022-12-20] MEDS: Metoprolol(XL)Succ 25 MG Tablet PO (09:14)
[2022-12-20] MEDS: Pantoprazole Sodium 40 MG Tablet PO (09:14)
--- NOTE | 2022-12-20 12:00 | CASEMGMT ---
Addendum entered by Brandy Diallo 12/20/22 15:59: Patient does not require any additional oxygen from home orders. RN CM reminded patient to have family bring portable tank with them for discharge home. Patient voiced understanding. Patient had no further questions or concerns at this time. Addendum entered by Brandy Diallo 12/20/22 14:23: LORENZO GARCÍA in to follow-up with patient regarding HHC preferences. Patient states she prefers [facility]. RN RICKY sent referral to [facility] via [employer]. RN RICKY received return call from [facility] and they are able to accept the patient with planned start of care for Friday12/24/22. RN CM updated patient regarding acceptance and start of care. Patient had no further questions or concerns at this time. Original Note: LORENZO GARCÍA in to discuss discharge planning with patient. Patient wishes to discharge home with HHC. A list of HHC providers including quality and resource use data and consistent with the patient?s preferred geographical region, medical needs, and insurance network were provided from the [employer] Guide. Patient wishes to review HHC list with family and will provide preferences. CM will continue to follow this patient and plan for a safe discharge.
[2022-12-20 12:15] LABS: Bedside Glucose 289 mg/dL (74-106)
[2022-12-20] MEDS: Gabapentin 800 MG Tablet PO (13:03)
--- NOTE | 2022-12-20 14:29 | DCINST_ITS ---
Discharge Instructions Diet Discharge Diet: Low fat / Low cholesterol and 1800 Calorie Control Diet Activity Discharge Activity: Return to Normal Activity Dressing / Incision Call your doctor if you observe: Fever of 101 or Higher, Shortness of breath, Dizziness, Fainting spells, Swelling in the ankles, Chest pain and Increased palpitations (irregular heartbeat) Follow Up Care Test Results: Test results from this visit will be discussed in further detail at your follow- up appointment, if applicable. Discharge Plan Admission Admit Date/Time: 12/18/22 23:36 Attending Provider: Liam Wilkes Primary Care Provider: Tino Oreilly Consulting Providers: Chris Gill Discharge Orders/Prescriptions Prescriptions: Continued loratadine 10 mg tablet 10 mg PO DAILY PRN (Reason: Allergies) lisinopril 10 mg tablet 10 mg PO DAILY Label Comments: TAKE 1 TABLET BY MOUTH EVERY DAY metformin 500 mg tablet extended release 24 hr 2,000 mg PO DAILY metoprolol succinate 25 mg tablet extended release 24 hr 25 mg PO DAILY Label Comments: TAKE 1 TABLET BY MOUTH EVERY DAY atorvastatin 80 mg tablet 100 mg PO QHS dwyiilil-utfk-IK-calcium-mins 1 EACH tablet 1 ea PO DAILY Label Comments: vitamin omeprazole 40 MG capsule,delayed release(DR/EC) 40 mg PO DAILY diltiazem HCl 120 MG capsule 120 mg PO DAILY apixaban 5 MG tablet 5 mg PO BID Trulicity 4.5 mg/0.5 mL pen injector 4.5 mg SUBCUT WE Label Comments: Inject 4.5 mg subcutaneously one time a week. furosemide 40 mg tablet 40 mg PO BID Label Comments: Take 1 tablet by mouth twice daily. insulin lispro [Humalog KwikPen Insulin] 100 unit/mL Insulin Pen 50 unit subcut TIDAC Qty: 0 0RF ammonium lactate 12 % Lotion 1 applic topical TID 30 Days Qty: 400 0RF Protocol: *Topical Application Instructions APPLICATION INSTRUCTIONS: apply to both legs and affected dry areas of the body insulin degludec [Tresiba FlexTouch U-200] 200 unit/mL (3 mL) insulin pen 95 unit SUBCUT BID 30 Days Qty: 28.5 0RF Label Comments: INJECT 100 UNITS SUBCUTANEOUSLY TWICE DAILY (this replaces levemir) albuterol sulfate 2.5 mg /3 mL (0.083 %) solution for nebulization 2.5 mg inhalation Q4H PRN (Reason: SOB) gabapentin 800 mg tablet 800 mg PO TID furosemide 20 mg tablet 20 mg PO DAILY fenofibrate nanocrystallized 145 mg tablet 145 mg PO DAILY Jardiance 10 mg tablet 10 mg PO DAILY nicotine (polacrilex) 2 mg mini lozenge 2 mg PO PRN PRN (Reason: Smoking Cessation) Toujeo Max U-300 SoloStar 300 unit/mL (3 mL) insulin pen 150 unit SUBCUT DAILY prednisone 20 mg tablet 60 mg PO DAILY Qty: 12 0RF doxycycline monohydrate 100 mg capsule 100 mg PO BID Qty: 14 0RF potassium chloride 20 mEq tablet extended release 20 meq PO BID Referrals / Follow Up: Tino Oreilly MD [Primary Care Provider] - Within 1 Week Disposition Disposition (needs filled in before D/C Order can be placed): Home Health Service
--- NOTE | 2022-12-20 14:33 | WOUNDNOTE ---
wound photo: left gluteal crease
[2022-12-20 14:35] VITALS: O2SAT 88; O2SAT 90; O2SAT 95
--- NOTE | 2022-12-20 15:10 | PCM.DC.SUM ---
Providers Date of Admission: 12/18/22 Primary Care Physician: Dr. Tino Oreilly MD Consultations 12/20/22 07:38 Consult: Onc/Wound/air force senior officer Routine Comment: Reason for Consult:: wounds Comments:: left inner thigh/gluteal fold, coccyx Reason For Visit: KERRY, DEBILITY Diagnosis Discharge Diagnosis (1) Unable to ambulate: Status: Acute Code(s): R26.2 - Difficulty in walking, not elsewhere classified (2) KERRY (acute kidney injury): Status: Acute Code(s): N17.9 - Acute kidney failure, unspecified (3) Metabolic encephalopathy: Status: Acute Code(s): G93.41 - Metabolic encephalopathy (4) Type 2 diabetes mellitus: Status: Chronic Code(s): E11.9 - Type 2 diabetes mellitus without complications Qualifiers: Diabetes mellitus usp insulin use: with usp use Diabetes mellitus complication status: with hyperosmolarity Diabetes mellitus complication detail: with coma Qualified Code(s): E11.01 - Type 2 diabetes mellitus with hyperosmolarity with coma; Z79.4 - longterm (current) use of insulin (5) Essential hypertension: Status: Chronic Code(s): I10 - Essential (primary) hypertension Plan 1. KERRY on CKD 3a/acute metabolic encephalopathy/debility ? Jus encephalopathy is likely due to her acute renal failure ? Continue with IV fluids ? We will monitor renal function ? Attempting to verify her home medications ? PT/OT for evaluation 2. DM2/morbid obesity ? Continue with sliding scale insulin ? Accu-Cheks AC at bedtime ? We will make adjustment as necessary ? BMI of 60 3. COPD ? PCO2 is at baseline, she is slightly acidotic on ABG yesterday ? We will continue to encourage wearing her CPAP ? She did just complete a dose of steroids as well as a course of doxycycline she continues to have a leukocytosis we will monitor 4. HTN/HLD ? We will try to verify her home medications and restart her meds DVT: Lovenox Medications at Discharge Home Medications multivit-iron 18 mg-folic acid 400 mcg-calcium 500 mg-minerals tablet 1 ea PO DAILY supplement 03/26/17 omeprazole 40 mg capsule,delayed release 40 mg PO DAILY GERD 12/15/18 loratadine 10 mg tablet 10 mg PO DAILY PRN Allergies 03/01/20 apixaban 5 mg tablet 5 mg PO BID blood thinner 08/20/20 diltiazem HCl 120 mg capsule,extended release 24 hr 120 mg PO DAILY heart rate 08/20/20 lisinopril 10 mg tablet 10 mg PO DAILY blood pressure 03/26/21 metformin 500 mg tablet,extended release 24 hr 2,000 mg PO DAILY diabetes 03/26/21 metoprolol succinate 25 mg tablet,extended release 24 hr 25 mg PO DAILY blood pressure 03/26/21 dulaglutide 4.5 mg/0.5 mL subcutaneous pen injector (Trulicity) 4.5 mg subcut WE DM 01/15/22 atorvastatin 80 mg tablet 100 mg PO QHS Check with primary doctor 02/07/22 furosemide 40 mg tablet 40 mg PO BID diuretic 09/22/22 ammonium lactate 12 % lotion 1 applic topical TID 30 days #400 grams 09/24/22 insulin degludec 200 unit/mL (3 mL) subcutaneous pen (Tresiba FlexTouch U-200 insulin) 95 unit (0.475 mL) subcut BID DM 30 days #28.5 mL 09/24/22 insulin lispro 100 unit/mL subcutaneous pen (Humalog KwikPen (U-100) Insulin) 50 unit (0.5 mL) subcut TIDAC #0 mL 09/24/22 albuterol sulfate 2.5 mg/3 mL (0.083 %) solution for nebulization 2.5 mg inhalation Q4H PRN SOB 12/09/22 doxycycline monohydrate 100 mg capsule 100 mg PO BID #14 CAPSULES 12/09/22 empagliflozin 10 mg tablet (Jardiance) 10 mg PO DAILY DM 12/09/22 fenofibrate nanocrystallized 145 mg tablet 145 mg PO DAILY CHOLESTEROL 12/09/22 furosemide 20 mg tablet 20 mg PO DAILY diuretic 12/09/22 gabapentin 800 mg tablet 800 mg PO TID NERVE PAIN 12/09/22 insulin glargine U-300 conc 300 unit/mL (3 mL) subcutaneous pen (Toujeo Max U-300 SoloStar) 150 unit subcut DAILY DM 12/09/22 nicotine (polacrilex) 2 mg buccal mini lozenge 2 mg PO PRN PRN Smoking Cessation 12/09/22 prednisone 20 mg tablet 60 mg PO DAILY #12 TABLETS 12/09/22 potassium chloride 20 mEq tablet,extended release 20 meq PO BID Check with primary doctor 12/19/22 Hospital Course Operations None Procedures None Summary of Care Provided Minutes Spent on Discharge: 34 Hospital Course: Per HPI: MACARIO OVERTON, is a 47 F with a significant history of morbid obesity; diabetes mellitus; hypertension; and tobacco abuse who presents to emergency department with somnolence. Patient's family was called because patient was in bed all day.? Reportedly patient family called paramedics to check on patient.? When paramedics arrived patient refused to come to the emergency department.? Patient's family later went to check on her and realized that patient could not walk.? Paramedics were called and patient was brought to the emergency department. Patient uses 4 to 5 L nasal cannula oxygen didume-wms-siuyt and CPAP at night to sleep.? Reportedly patient did not use either her CPAP oxygen on the day of presentation. Hospital Course: 1.? KERRY on CKD 3a/acute metabolic encephalopathy from acute on chronic hypoxic and hypercapnic respiratory failure/debility ? Jus encephalopathy is likely due to her acute renal failure ? Continue with IV fluids ? We will monitor renal function ? Attempting to verify her home medications ? PT/OT for evaluation ? KERRY has completely resolved and her creatinine is back to baseline, she is alert today and not confused she states that she just did not wear her BiPAP because she does not like it but she understands now that she needs to be wearing it to prevent this from happening in the future. Her leukocytosis is potentially reactive as it improved on its own without any antibiotics would recommend outpatient follow-up with her PCP next week, I did notify his office. She has continually declined SNF placement but did agree to home health services and they will be able to come out next week for an evaluation people. She can resume all of her home medications on discharge. It does appear that she had an abscess in her left gluteal fold that has since resolved, it is open but there is no active draining and there is no surrounding redness, she did just complete a course of doxycycline on the or 18 of this month. Do recommend monitoring of the area and initiation of antibiotics if necessary, she does have home health coming into the house early next week. 2.? DM2/morbid obesity ? Continue with sliding scale insulin ? Accu-Cheks AC at bedtime ? We will make adjustment as necessary ? BMI of 60 3.? COPD ? PCO2 is at baseline, she is slightly acidotic on ABG yesterday ? We will continue to encourage wearing her CPAP ? She did just complete a dose of steroids as well as a course of doxycycline she continues to have a leukocytosis which improved overnight without any intervention 4.? HTN/HLD ? We will try to verify her home medications and restart her meds Physical Exam Narrative General: Alert, Oriented x3, Cooperative, No apparent distress, morbidly obese HEENT: Atraumatic, PERRLA, EOMI, Normocephalic Oral: Moist Mucosa Neck: Supple, No JVD Lungs: Diminished, Normal air movement, No rhonchi, No wheeze, No rales Cardiovascular: Regular rate, Regular Rhythm, Normal S1, Normal S2, No murmurs Abdomen: Soft, Non Tender, Non-Distended, No Hepato-splenomegaly Extremities: No edema, Capillary Refill Less than 3 Seconds Skin: Venous stasis changes in her bilateral lower extremities, 1 cm opening on her left gluteal fold with no drainage or surrounding erythema Musculoskeletal: No Tenderness to Palpation of Joints or Extremities Neurological: Cranial nerves II-XII grossly intact, Motor Exam 5/5 strength throughout, Sensory exam intact to light touch and pain Psych/Mental Status: Flat affect, Appropriate Weight / BMI Weight Weight: 383 lb 13.196 oz Body Mass Index (BMI) 60.1 ABG / Lab / Microbiology Data Result Diagrams: 12/20/22 04:47 12/20/22 04:47 Laboratory: Laboratory Results - last 24 hr 12/19/22 17:06: POC Glucose 177 H 12/19/22 21:48: POC Glucose 277 H 12/20/22 04:47: WBC 13.8 H, RBC 3.65 L, Hgb 10.5 L, Hct 34.5 L, MCV 94.5, MCH 28.8, MCHC 30.4 L, RDW Std Deviation 57.7 H, RDW Coeff of Darrion 16.5 H, Plt Count 225, MPV 10.4, Immature Gran % (Auto) 0.700, Neut % (Auto) 81.4 H, Lymph % (Auto) 10.5 L, [place] % (Auto) 6.3, Eos % (Auto) 0.7, Baso % (Auto) 0.4, Absolute Neuts (auto) 11.2 H, Absolute Lymphs (auto) 1.45, Nucleated RBC % 0 12/20/22 04:47: Sodium 136, Potassium 4.8, Chloride 103, Carbon Dioxide 27.0, Anion Gap 6, BUN 56 H, Creatinine 1.12 H, Estim Creat Clear Calc 61.68, Est GFR (MDRD) Af Amer 68, Est GFR (MDRD) Non-Af 56 L, BUN/Creatinine Ratio 50.0 H, Glucose 170 H, Calcium 9.1 12/20/22 06:22: POC Glucose 168 H 12/20/22 11:55: POC Glucose 289 H D/C Instructions Discharge Diet: Low fat / Low cholesterol and 1800 Calorie Control Diet Call your doctor if you observe: Fever of 101 or Higher, Shortness of breath, Dizziness, Fainting spells, Swelling in the ankles, Chest pain and Increased palpitations (irregular heartbeat) Meaningful Use Info Meaningful Use Diagnoses (Choose all that apply): None applicable Discharge Plan Admission Admit Date/Time: 12/18/22 23:36 Attending Provider: Liam Wilkes Primary Care Provider: Tino Oreilly Consulting Providers: Chris Gill Discharge Orders/Prescriptions Prescriptions: Continued loratadine 10 mg tablet 10 mg PO DAILY PRN (Reason: Allergies) lisinopril 10 mg tablet 10 mg PO DAILY Label Comments: TAKE 1 TABLET BY MOUTH EVERY DAY metformin 500 mg tablet extended release 24 hr 2,000 mg PO DAILY metoprolol succinate 25 mg tablet extended release 24 hr 25 mg PO DAILY Label Comments: TAKE 1 TABLET BY MOUTH EVERY DAY atorvastatin 80 mg tablet 100 mg PO QHS jdhkiwdn-opbr-ZR-calcium-mins 1 EACH tablet 1 ea PO DAILY Label Comments: vitamin omeprazole 40 MG capsule,delayed release(DR/EC) 40 mg PO DAILY diltiazem HCl 120 MG capsule 120 mg PO DAILY apixaban 5 MG tablet 5 mg PO BID Trulicity 4.5 mg/0.5 mL pen injector 4.5 mg SUBCUT WE Label Comments: Inject 4.5 mg subcutaneously one time a week. furosemide 40 mg tablet 40 mg PO BID Label Comments: Take 1 tablet by mouth twice daily. insulin lispro [Humalog KwikPen Insulin] 100 unit/mL Insulin Pen 50 unit subcut TIDAC Qty: 0 0RF ammonium lactate 12 % Lotion 1 applic topical TID 30 Days Qty: 400 0RF Protocol: *Topical Application Instructions APPLICATION INSTRUCTIONS: apply to both legs and affected dry areas of the body insulin degludec [Tresiba FlexTouch U-200] 200 unit/mL (3 mL) insulin pen 95 unit SUBCUT BID 30 Days Qty: 28.5 0RF Label Comments: INJECT 100 UNITS SUBCUTANEOUSLY TWICE DAILY (this replaces levemir) albuterol sulfate 2.5 mg /3 mL (0.083 %) solution for nebulization 2.5 mg inhalation Q4H PRN (Reason: SOB) gabapentin 800 mg tablet 800 mg PO TID furosemide 20 mg tablet 20 mg PO DAILY fenofibrate nanocrystallized 145 mg tablet 145 mg PO DAILY Jardiance 10 mg tablet 10 mg PO DAILY nicotine (polacrilex) 2 mg mini lozenge 2 mg PO PRN PRN (Reason: Smoking Cessation) Toujeo Max U-300 SoloStar 300 unit/mL (3 mL) insulin pen 150 unit SUBCUT DAILY prednisone 20 mg tablet 60 mg PO DAILY Qty: 12 0RF doxycycline monohydrate 100 mg capsule 100 mg PO BID Qty: 14 0RF potassium chloride 20 mEq tablet extended release 20 meq PO BID Referrals / Follow Up: Tino Oreilly MD [Primary Care Provider] - 12/27/22 10:00 am Disposition Disposition (needs filled in before D/C Order can be placed): Home Health Service Charges/Coding Visit Charges Inpatient E&M: 85180 Disch Hosp >30min
[2022-12-20 16:28] VITALS: BP 149/96; PULSE 103; RESP 19; TEMP 36.9; O2SAT 94
[2022-12-20] MEDS: Menthol/Lanolin/Calamine/Znox 113 GM Tube 1 APPLIC TOPICAL (16:29)
[2022-12-20] MEDS: Nystatin Powder 15gm Bottle 1 APPLIC TOPICAL (16:29)
== END 2022-12-20 16:50 | disposition home health service (06) | DRG 682 ==
LOC: ED 23:45 → PCU 23:58
PROVIDERS: Admitting Provider Hospitalist; Emergency Provider Emergency Medicine; PCP Family Medicine; Visit Provider Family Medicine
DX: N17.9 Acute kidney failure, unspecified (principal); E11.00 Type 2 diabetes mellitus with hyperosmolarity without nonketotic hyperglycemic-hyperosmolar coma (NKHHC); G93.41 Metabolic encephalopathy; J96.12 Chronic respiratory failure with hypercapnia; I13.0 Hypertensive heart and chronic kidney disease with heart failure and stage 1 through stage 4 chronic kidney disease, or unspecified chronic kidney disease; I50.32 Chronic diastolic (congestive) heart failure; Z68.44 Body mass index [BMI] 60.0-69.9, adult; J96.11 Chronic respiratory failure with hypoxia; E87.1 Hypo-osmolality and hyponatremia; E11.21 Type 2 diabetes mellitus with diabetic nephropathy; N18.31 Chronic kidney disease, stage 3a; J44.9 Chronic obstructive pulmonary disease, unspecified; Z79.4 Long term (current) use of insulin; E66.01 Morbid (severe) obesity due to excess calories; E11.22 Type 2 diabetes mellitus with diabetic chronic kidney disease; E78.5 Hyperlipidemia, unspecified; E86.1 Hypovolemia; E87.5 Hyperkalemia; R26.2 Difficulty in walking, not elsewhere classified; I25.2 Old myocardial infarction; G47.33 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 (adult) (pediatric); F17.210 Nicotine dependence, cigarettes, uncomplicated; E86.0 Dehydration; R53.81 Other malaise; Z79.01 Long term (current) use of anticoagulants; Z79.899 Other long term (current) drug therapy; Z99.81 Dependence on supplemental oxygen
CPT/HCPCS: 36415; 36600; 71045; 80048; 81001; 82803; 82962; 84484; 85025; 93005; 94640; 94660; 94762; 97116; 97162; 97166; 97530; 97802; 99252; 99285; J7030; A4216; G0463

== ENCOUNTER 2022-12-24 21:07 | Emergency (ER) | payer MEDICARE, MEDICAID, SELFPAY ==
[2022-12-24 21:08] VITALS: BP 119/67; PULSE 124; RESP 26; TEMP 36.1; O2SAT 75; BMI 58.7
[2022-12-24 21:23] VITALS: PULSE 112; RESP 22; O2SAT 92
--- NOTE | 2022-12-24 21:24 | EKG12_ITS ---
Test Reason : DYSRHYTHMIA Blood Pressure : / mmHG Vent. Rate : 105 BPM Atrial Rate : 105 BPM P-R Int : 134 ms QRS Dur : 076 ms QT Int : 318 ms P-R-T Axes : 035 -03 059 degrees QTc Int : 420 ms Sinus tachycardia Otherwise normal ECG Confirmed by HASMUKH LORA, LILIANA ([id number]), photo editor DANIELE MALDONADO ([id number]) on 12/25/2022 9:22:42 AM Referred By: SHRUTHI Confirmed By:LILIANA NOE MD
--- NOTE | 2022-12-24 21:26 | CT_ITS ---
STUDY: CT PELVIS WITH CONTRAST REASON FOR EXAM: Female, 47 years old. Chronic cellulitis of the labia. Question necrotizing fasciitis. Swollen and painful left labia was followed under. History of diabetes. RADIATION DOSAGE (If Supplied By Facility): CTDIvol = ( 43.72 ) mGy, DLP = ( 2977.77 ) mGycm TECHNIQUE: Transaxial imaging of the pelvis was performed without oral contrast. IV 100mL Isovue-370 was administered intravenously. Individualized dose optimization techniques were used for this CT. COMPARISON: None. FINDINGS: The study is mildly limited due to a band of stranding through the area of the labia on both the coronal and sagittal reconstructions. Normal urinary bladder. Normal uterus and adnexa. There is no mass. Normal visualized small intestine. Normal visualized colon. Normal appendix. There is no pelvic fluid. No free air. There is no pelvic lymphadenopathy or mass lesion. Normal visualized pelvic arteries. There is stranding in the soft tissues of the lower abdominal wall. There is thickening and stranding in the subcutaneous fat of the left inner thigh with air within the subcutaneous fat. Minimal stranding is seen within the left labia. Stranding and air extends posteriorly into the buttock. The underlying musculature appears normal. Normal osseous structures. CT/Pelvis WITH IV Contrast IMPRESSION: 1. Air and stranding in the left inner thigh extending into the left buttock. There is minimal stranding of the subcutaneous fat in the left labia without abscess. 2. Mild anasarca. 3. No acute abnormality of the intrapelvic contents. Electronically Signed: Michael Anguiano DO at 23:26 EST ,
[2022-12-24 21:55] LABS: Absolute Lymphocyte Count 2.75 X10^3/uL (0.83-4.51); Absolute Neutrophil Count 12.3 X10^3/uL (2.0-7.7); Basophil# 0.09 X10^3/uL; Basophil% 0.6 % (0-1); Eosinophil# 0.33 X10^3/uL; Hematocrit 33.3 % (37-47); Hemoglobin 10.2 g/dL (12.0-15.0); Lymphocyte # 2.75 X10^3/ul (0.83-4.51); Lymphocyte % 16.9 % (19-41); Mean Corp Hgb Conc 30.6 g/dL (32-36); Mean Corpuscular Volume 94.6 fL (81-99); Mean Platelet Vol. 9.3 fl (6.2-12.0); Monocyte# 0.68 X10^3/uL; Monocyte% 4.2 % (0-10); NRBC Flagged by Analyzer 0.1 % (0-5); Neutrophil # 12.31 X10^3/uL (2.7-7.7); Neutrophil % 75.3 % (47-70); Platelet Count 323 K/mm3 (150-450); RBC Distribution Width CV 16.3 % (11.6-14.6); RBC Distribution Width SD 56.8 fl (35.1-43.9); Red Blood Count 3.52 M/mm3 (4.2-5.4); White Blood Count 16.3 K/mm3 (4.4-11.0)
[2022-12-24 22:04] VITALS: O2SAT 92
[2022-12-24 22:04] LABS: International Normalized Ratio 1.3; Prothrombin Time (Protime)PT. 15.9 SECONDS (11.7-14.9)
[2022-12-24] MEDS: Clindamycin 900 MG/50 ML BAG 75 MG IV (22:04)
[2022-12-24 22:05] LABS: Partial Thromboplast Time 43.3 Seconds (24.1-36.2)
[2022-12-24 22:08] LABS: ALB/GLOB Ratio 0.5 RATIO (0.9-2.4); AST(SGOT) 36 U/L (15-37); Alanine Aminotransfer ALT/SGPT 41 U/L (13-56); Albumin, Serum 2.4 g/dL (3.2-5.0); Alkaline Phosphatase 60 U/L (45-117); Anion Gap 6 (5-15); BUN 28 mg/dL (7-18); BUN/Creat Ratio 16.3 RATIO (10-20); Calcium,Total 8.7 mg/dL (8.5-10.1); Chloride 102 mmol/L (98-107); Creatinine, Serum 1.72 mg/dL (0.55-1.02); EST Glomerular Filtration Rate 34 mL/min (>60); Est Glom Filt Rate - Afr Amer 41 mL/min (>60); Estimated Creatinine Clearance 40.17 ml/min; Globulin 4.8 g/dL (2.2-4.2); Glucose 99 mg/dL (74-106); Potassium 4.6 mmol/L (3.5-5.1); Protein, Total 7.2 g/dL (6.4-8.2); Sodium Level 134 mmol/L (136-145)
[2022-12-24] MEDS: HYDROmorphone 0.5 MG/0.5 ML SYRINGE IV (22:13)
--- NOTE | 2022-12-24 22:14 | EX.ED.DYSGE1 ---
HPI History of Present Illness Chief Complaint: Abscess Detail of Chief Complaint: Abscess left labia groin area Informant: patient Onset/Context/Timing Onset: Days (Patient states she had the abscess when she was in the hospital. She was told by the doctor that nothing further need to be done since it ruptured on its own and drained.) Context: - (Unknown) Timing: Continuous Quality: Swollen painful red necrotic area left labial groin region Location: Left Current Severity: Moderate Maximum Severity: Severe Worsened by: Increased pain with walking and palpation Relieved by: Nothing Associated Symptoms Associated Symptoms: Shaking chills and subjective fever Narrative Narrative: Patient is a morbidly obese woman with history of type 2 diabetes, obstructive sleep apnea, respiratory failure with hypoxia, essential hypertension, myocardial infarction, chronic diastolic congestive heart failure, KERRY who was admitted and recently discharged. Notes for the visit and discharge summary were reviewed. There is no mention of infection or spontaneous drainage of abscess. Reason for admission was unable to ambulate, acute kidney injury, metabolic encephalopathy, hyperglycemia type 2 diabetes without complication, essential hypertension and COPD baseline. Patient was instructed to use her CPAP machine which she does not not always comply with. Patient was seen by her primary care physician. She was sent to the emergency room because of the infection. She has not checked her blood sugar recently. She denies headache, visual, ocular auditory symptoms. Denies photophobia, neck pain or neck stiffness. She denies increased shortness of breath. She denies chest discomfort. She denies vomiting or diarrhea. She denies dysuria, frequency, hematuria or flank pain. Prior similar symptoms: Yes (Yes per patient) Recent Illness/Hospitalization: Yes PFSH PFS Medical History Abscess Abscess of vulva KERRY (acute kidney injury) Anxiety BiPAP (biphasic positive airway pressure) dependence Chronic diastolic (congestive) heart failure Chronic respiratory failure with hypoxia Contusion of knee, right COPD (chronic obstructive pulmonary disease) Depression Diabetes Dyspnea on exertion Essential hypertension GERD (gastroesophageal reflux disease) Hidradenitis History of left heart catheterization (LHC) (~01/05/19) History of MRSA infection Hyperglycemia due to type 2 diabetes mellitus Hyperlipidemia Hypertension Morbid obesity Necrotizing soft tissue infection Non-healing open wound of left groin NSTEMI (non-ST elevated myocardial infarction) 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 Old myocardial infarction On home oxygen therapy Open wound of vulva with complication Opiate overdose Pulmonary embolism Respiratory failure with hypoxia Restrictive lung disease secondary to obesity Sleep apnea Smoker Soft tissue abscess of inguinal region Tobacco abuse Type 2 diabetes mellitus Home Medications multivit-iron 18 mg-folic acid 400 mcg-calcium 500 mg-minerals tablet 1 ea PO DAILY supplement 03/26/17 [History Last Taken 12/09/22] omeprazole 40 mg capsule,delayed release 40 mg PO DAILY GERD 12/15/18 [History Last Taken 12/09/22] loratadine 10 mg tablet 10 mg PO DAILY PRN Allergies 03/01/20 [History Last Taken 12/09/22] apixaban 5 mg tablet 5 mg PO BID blood thinner 08/20/20 [History Last Taken 12/09/22] diltiazem HCl 120 mg capsule,extended release 24 hr 120 mg PO DAILY heart rate 08/20/20 [History Last Taken 12/09/22] lisinopril 10 mg tablet 10 mg PO DAILY blood pressure 03/26/21 [History Last Taken 12/09/22] metformin 500 mg tablet,extended release 24 hr 2,000 mg PO DAILY diabetes 03/26/21 [History Last Taken 01/15/22] metoprolol succinate 25 mg tablet,extended release 24 hr 25 mg PO DAILY blood pressure 03/26/21 [History Last Taken 12/09/22] atorvastatin 80 mg tablet 100 mg PO QHS Check with primary doctor 02/07/22 [History Last Taken 12/09/22] furosemide 40 mg tablet 40 mg PO BID diuretic 09/22/22 [History Last Taken 12/09/22] ammonium lactate 12 % lotion 1 applic topical TID 30 days #400 grams 09/24/22 [Rx Last Taken 12/08/22] insulin lispro 100 unit/mL subcutaneous pen (Humalog KwikPen (U-100) Insulin) 50 unit (0.5 mL) subcut TIDAC #0 mL 09/24/22 [Rx Last Taken 12/09/22] albuterol sulfate 2.5 mg/3 mL (0.083 %) solution for nebulization 2.5 mg inhalation Q4H PRN SOB 12/09/22 [History Last Taken 12/08/22] doxycycline monohydrate 100 mg capsule 100 mg PO BID #14 CAPSULES 12/09/22 [Rx Last Taken Unknown] empagliflozin 10 mg tablet (Jardiance) 10 mg PO DAILY DM 12/09/22 [History Last Taken 12/09/22] fenofibrate nanocrystallized 145 mg tablet 145 mg PO DAILY CHOLESTEROL 12/09/22 [History Last Taken 12/09/22] furosemide 20 mg tablet 20 mg PO DAILY diuretic 12/09/22 [History Last Taken Unknown] gabapentin 800 mg tablet 800 mg PO TID NERVE PAIN 12/09/22 [History Last Taken 12/09/22] insulin glargine U-300 conc 300 unit/mL (3 mL) subcutaneous pen (Toujeo Max U-300 SoloStar) 150 unit subcut DAILY DM 12/09/22 [History Last Taken 12/09/22] nicotine (polacrilex) 2 mg buccal mini lozenge 2 mg PO PRN PRN Smoking Cessation 12/09/22 [History Last Taken 12/08/22] potassium chloride 20 mEq tablet,extended release 20 meq PO BID Check with primary doctor 12/19/22 [History Last Taken Unknown] insulin degludec 200 unit/mL (3 mL) subcutaneous pen (Tresiba FlexTouch U-200 insulin) 104 unit subcut BID DM 12/24/22 [History Last Taken Unknown] Allergy/AdvReac Type Severity Reaction Status Date / Time cyclobenzaprine HCl Allergy Hives Verified 12/24/22 21:17 [From Flexeril] venlafaxine [From Effexor] AdvReac Severe unknown Verified 12/24/22 21:17 Family History Father CVA (cerebral vascular accident) Heart disease Diabetes Mother Thyroid disorder Surgical History H/O arthroscopic knee surgery History of delivery History of cholecystectomy Social History household members: none Smoking Status: Current some day smoker tobacco type: cigarettes how long ago did patient quit smokin PPD smoker second hand exposure: Yes alcohol intake: never substance use type: does not use caffeine: Yes Type: carbonated beverages Number of servings: 1 and coffee Number of servings: 1 ROS ROS ED Constitutional Constitutional ED: Reports chills; Denies fever(s), sweats or weight loss Eyes Eyes: Denies blurry vision, change in vision or diplopia ENT ENT ED: Denies ear pain, rhinorrhea or sore throat Cardiovascular Cardiovascular: Denies chest pain, orthopnea, palpitations, paroxysmal nocturnal dyspnea or racing heartbeat Respiratory/Chest Respiratory/Chest: Reports dyspnea, dyspnea on exertion and other Details: Patient is just [place] exertion is chronic. ; Denies cough, orthopnea or paroxysmal nocturnal dyspnea Gastrointestinal Gastrointestinal: Denies abdominal pain, constipation, diarrhea, nausea or vomiting Genitourinary Genitourinary ED: Denies dysuria, hematuria or urinary frequency Musculoskeletal Musculoskeletal: Denies arthralgias, back pain, myalgias or neck pain Integumentary Reports abscess and rash; Denies Abrasions Neurologic Neurologic: Denies headache(s) or paresthesias Endocrine Endocrinology: Denies cold intolerance, heat intolerance or polyuria Hematologic/Lymphatic Hematologic/Lymphatic: Reports systems reviewed and no addt'l complaints, except as documented EXAM Physical Exam Const Vital Signs: 12/24/22 21:08 12/24/22 21:23 12/24/22 22:04 Temperature 97 F L Temperature Source Temporal Pulse Rate 124 H 112 H Respiratory Rate 26 H 22 H Blood Pressure 119/67 Blood Pressure Mean 84 Pulse Ox 75 92 92 Oxygen Delivery Method Room Air Nasal Cannula Room Air Oxygen Flow Rate (L/min) 3 12/24/22 22:18 12/24/22 23:35 Temperature Temperature Source Pulse Rate 105 H 109 H Respiratory Rate 18 16 Blood Pressure 109/95 H 109/47 L Blood Pressure Mean 99 67 Pulse Ox 92 94 Oxygen Delivery Method Nasal Cannula Nasal Cannula Oxygen Flow Rate (L/min) 3 5 Positive well nourished and well developed Constitutional Narrative: Ill-appearing woman. General Appearance ED: well developed; Negative for cyanotic or diaphoretic HEENT Reports dry mucous membranes HEENT Narrative: Head is normal cephalic and atraumatic. Ears normal. Nares patent. There is no drainage. Mucosa is dry. No erythema or exudate the posterior pharynx. Uvula is midline. Mouth ED: Yes dry mucous membranes Mouth: dry mucous membranes Eyes PERRL and EOMs intact bilaterally General Eye ED: Negative for pale conjunctiva or scleral icterus Neck no lymphadenopathy, supple and no JVD Chest Wall inspection of chest normal and palpation of chest normal Resp normal respiratory effort and clear to auscultation bilaterally Cardio regular rhythm, S1 normal heart sound, S2 normal heart sound and no murmurs Rate: tachycardic GI non-tender and non-distended; Negative for normal to inspection, nondistended, normoactive bowel sounds, hepatosplenomegaly or no masses Auscultation: hypoactive bowel sounds Palpation: soft; Negative for tender, guarding, splenomegaly or mass Narrative: There is erythema involving the labia majora perineal region with necrotic painful lesion noted in the inguinal gluteal region on the left. There is cellulitis of the left thigh and panniculus as well. There is no crepitus appreciated. Patient has significant pain to palpation and raises concern for possibility of necrotizing fasciitis. Back/Spine no CVA tenderness Extremity Extremity Narrative: Tenderness proximal left thigh General Extremety ED: Yes edema and tenderness General Extremity: edema Neuro oriented x3, CN's II-XII intact bilaterally and no sensory deficits noted Sensorium / Orientation: alert Motor Exam: strength 5/5 throughout Psych mental status grossly normal Skin No no wounds and No skin turgor normal General Skin Exam: Negative for elasticity normal or jaundice Wounds: wounds noted MDM MDM MDM Narrative Medical decision making narrative: Patient at the minimum has an abscess with cellulitis of the pelvic abdominal thigh region on the left. Because it is painful with necrosis noted concerned this may represent necrotizing fasciitis. CT of the pelvic and extremity was obtained. Blood work was obtained to assess for sepsis. Because of concern for necrotizing fasciitis patient received clindamycin first followed by Zosyn and vancomycin. Patient will require admission. Patient is not a candidate for I&D in the emergency department because of body habitus and history of chronic respiratory failure with hypoxia and obstructive sleep apnea. Her recent visit was reviewed and documented in the HPI narrative. There is a discrepancy in what patient told me and position. Documented. Patient's last dose of apixaban was this morning. She is on anticoagulant for VTE. Case was discussed with surgery, Dr. Phillips. She stated patient needs to be transferred because of patient's comorbidities, postoperative care required. She was informed that the last critical care patient took over 3 to 4 hours for transport. She still recommended transfer because of postoperative care and patient's comorbidities . I spoke with the patient and daughter. They [facility]. If there is no availability [facility] will try [facility]. Lab Data Attestation: I reviewed the patient's lab results. Lab results narrative: White count is elevated with shift. There is no bandemia. Patient does have mild anemia with an H&H of 10.2 and 33.3. Coags are unremarkable. Comprehensive metabolic panel does not elevated BUN/creatinine of 28 and 1.72. GFR is 34. BUN/creatinine ratio 16:1. Liver enzymes are normal. Lactate is pending. Labs: Laboratory Results - last 24 hr 12/24/22 12/24/22 12/24/22 21:40 21:40 21:40 WBC 16.3 H RBC 3.52 L Hgb 10.2 L Hct 33.3 L MCV 94.6 MCH 29.0 MCHC 30.6 L RDW Std Deviation 56.8 H RDW Coeff of Darrion 16.3 H Plt Count 323 MPV 9.3 Immature Gran % (Auto) 1.000 H Neut % (Auto) 75.3 H Lymph % (Auto) 16.9 L [place] % (Auto) 4.2 Eos % (Auto) 2.0 Baso % (Auto) 0.6 Absolute Neuts (auto) 12.3 H Absolute Lymphs (auto) 2.75 Nucleated RBC % 0.1 PT 15.9 H INR 1.3 APTT 43.3 H Sodium 134 L Potassium 4.6 Chloride 102 Carbon Dioxide 26.0 Anion Gap 6 BUN 28 H Creatinine 1.72 H Estim Creat Clear Calc 40.17 Est GFR (MDRD) Af Amer 41 L Est GFR (MDRD) Non-Af 34 L BUN/Creatinine Ratio 16.3 Glucose 99 Lactic Acid Calcium 8.7 Total Bilirubin 0.20 AST 36 ALT 41 Alkaline Phosphatase 60 Total Protein 7.2 Albumin 2.4 L Globulin 4.8 H Albumin/Globulin Ratio 0.5 L 12/24/22 21:40 WBC RBC Hgb Hct MCV MCH MCHC RDW Std Deviation RDW Coeff of Darrion Plt Count MPV Immature Gran % (Auto) Neut % (Auto) Lymph % (Auto) [place] % (Auto) Eos % (Auto) Baso % (Auto) Absolute Neuts (auto) Absolute Lymphs (auto) Nucleated RBC % PT INR APTT Sodium Potassium Chloride Carbon Dioxide Anion Gap BUN Creatinine Estim Creat Clear Calc Est GFR (MDRD) Af Amer Est GFR (MDRD) Non-Af BUN/Creatinine Ratio Glucose Lactic Acid 3.3 H* Calcium Total Bilirubin AST ALT Alkaline Phosphatase Total Protein Albumin Globulin Albumin/Globulin Ratio Radiography Diagnostic Testing: Clinical Impression(s) from Imaging Studies Pelvis CT 12/24/22 21:26 IMPRESSION: 1. Air and stranding in the left inner thigh extending into the left buttock. There is minimal stranding of the subcutaneous fat in the left labia without abscess. 2. Mild anasarca. 3. No acute abnormality of the intrapelvic contents. Electronically Signed: Michael MillsonDO at 23:26 EST Reading Location ID and State: [address] [place] [address] Tel [phone], Service support , EKG Initial EKG: Attestation: I personally reviewed and interpreted this EKG as follows: Interpretation: Sinus Tachycardia (Sinus tachycardia otherwise EKG is normal. Rate is 105. NE interval is 134 ms. QS duration 76 ms. QT duration 318 ms. [place] is normal.) Prior: Unchanged Critical Care Time Critical Care Time: Yes Critical care time (excluding procedures): 30-74 minutes (33), Including time spent: (History, physical, documentation, independent review of laboratory results, initiation of therapy, review of prior records), Discussing w/Patient &/or Family/Marketing And Promotions Manager, Discussing w/Consultants (Case discussed with surgeon on-call. Recommended transfer to tertiary care facility for reasons documented in the MDI) and Arranging Admission or Transfer Discharge Plan Triage Chief Complaint: Abscess ED Provider: Jozef Kaiser Dx/Rx/DC Orders Clinical Impression: Gas gangrene of extremity, Sepsis, Acidosis, lactic, Chronic kidney disease, Type 1 diabetes, Anticoagulant long-term use Prescriptions: No Action loratadine 10 mg tablet 10 mg PO DAILY PRN (Reason: Allergies) lisinopril 10 mg tablet 10 mg PO DAILY Label Comments: TAKE 1 TABLET BY MOUTH EVERY DAY metformin 500 mg tablet extended release 24 hr 2,000 mg PO DAILY metoprolol succinate 25 mg tablet extended release 24 hr 25 mg PO DAILY Label Comments: TAKE 1 TABLET BY MOUTH EVERY DAY atorvastatin 80 mg tablet 100 mg PO QHS [id number]-[id number]-calcium-mins 1 EACH tablet 1 ea PO DAILY Label Comments: vitamin omeprazole 40 MG capsule,delayed release(DR/EC) 40 mg PO DAILY diltiazem HCl 120 MG capsule 120 mg PO DAILY apixaban 5 MG tablet 5 mg PO BID furosemide 40 mg tablet 40 mg PO BID Label Comments: Take 1 tablet by mouth twice daily. insulin lispro [Humalog KwikPen Insulin] 100 unit/mL Insulin Pen 50 unit subcut TIDAC Qty: 0 0RF ammonium lactate 12 % Lotion 1 applic topical TID 30 Days Qty: 400 0RF Protocol: *Topical Application Instructions APPLICATION INSTRUCTIONS: apply to both legs and affected dry areas of the body albuterol sulfate 2.5 mg /3 mL (0.083 %) solution for nebulization 2.5 mg inhalation Q4H PRN (Reason: SOB) gabapentin 800 mg tablet 800 mg PO TID furosemide 20 mg tablet 20 mg PO DAILY fenofibrate nanocrystallized 145 mg tablet 145 mg PO DAILY Jardiance 10 mg tablet 10 mg PO DAILY nicotine (polacrilex) 2 mg mini lozenge 2 mg PO PRN PRN (Reason: Smoking Cessation) Toujeo Max U-300 SoloStar 300 unit/mL (3 mL) insulin pen 150 unit SUBCUT DAILY doxycycline monohydrate 100 mg capsule 100 mg PO BID Qty: 14 0RF potassium chloride 20 mEq tablet extended release 20 meq PO BID insulin degludec [Tresiba FlexTouch U-200] 200 unit/mL (3 mL) insulin pen 104 unit SUBCUT BID Label Comments: INJECT 100 UNITS SUBCUTANEOUSLY TWICE DAILY (this replaces levemir) Primary Care Provider: Tino Oreilly Referrals: Tino Oreilly MD [Primary Care Provider] - Disposition Disposition: Acute Care Hospital Discharge Location: [facility]
[2022-12-24 22:18] VITALS: BP 109/95; PULSE 105; RESP 18; O2SAT 92
[2022-12-24 22:19] LABS: Lactic Acid 3.3 mmol/L (0.4-1.9)
--- NOTE | 2022-12-24 23:19 | ED.RN ---
UNABLE TO PLACE URINARY CATHETER AFTER MULTIPLE ATTEMPTS DUE TO INFLAMMATION AND TISSUE. DR DORADO AWARE AND STATES THAT SHE CAN GET A CATHETER IN SURGERY.
[2022-12-24 23:35] VITALS: BP 109/47; PULSE 109; RESP 16; O2SAT 94
[2022-12-24] MEDS: HYDROmorphone 1 MG/ML Syringe IV (23:37)
[2022-12-25 01:46] LABS: Reflex Lactate? Y
== END 2022-12-25 01:30 | disposition short-term general hospital (02) ==
PROVIDERS: Emergency Provider Emergency Medicine; PCP Family Medicine; Visit Provider Emergency Medicine
DX: A41.9 Sepsis, unspecified organism (principal); A48.0 Gas gangrene; J44.9 Chronic obstructive pulmonary disease, unspecified; I50.32 Chronic diastolic (congestive) heart failure; I13.0 Hypertensive heart and chronic kidney disease with heart failure and stage 1 through stage 4 chronic kidney disease, or unspecified chronic kidney disease; E10.22 Type 1 diabetes mellitus with diabetic chronic kidney disease; J96.11 Chronic respiratory failure with hypoxia; E66.01 Morbid (severe) obesity due to excess calories; Z79.4 Long term (current) use of insulin; E78.5 Hyperlipidemia, unspecified; N76.4 Abscess of vulva; N18.9 Chronic kidney disease, unspecified; G47.33 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 (adult) (pediatric); F17.210 Nicotine dependence, cigarettes, uncomplicated; I25.2 Old myocardial infarction; Z79.01 Long term (current) use of anticoagulants; Z79.899 Other long term (current) drug therapy; L03.116 Cellulitis of left lower limb; L03.311 Cellulitis of abdominal wall
CPT/HCPCS: 72193; 80053; 83605; 85025; 85610; 85730; 87040; 93005; 96365; 96366; 96367; 96375; 96376; 99282; J7030; J7040; Q9967; A4216

== ENCOUNTER 2023-01-12 23:09 | Emergency (ER) | payer MEDICARE, MEDICAID, SELFPAY ==
[2023-01-12 23:09] VITALS: BP 157/63; PULSE 85; RESP 16; TEMP 36.8; O2SAT 96; BMI 64.3
--- NOTE | 2023-01-12 23:55 | EDS_ITS ---
HPI History of Present Illness Chief Complaint: Abscess Narrative Narrative: Patient is a 47-year-old female with history of congestive heart failure and chronic respiratory failure on oxygen. She was seen in the hospital approximately 2 weeks ago secondary to pain redness and swelling in her left leg and was found to have necrotizing fasciitis and shipped to a tertiary center. Patient had surgery at that hospital and was discharged home. She states she has noticed some redness and swelling now in her right thigh and is concerned for the same infection and therefore comes in for evaluation. [facility] Medical History Abscess Abscess of vulva KERRY (acute kidney injury) Anxiety BiPAP (biphasic positive airway pressure) dependence Chronic diastolic (congestive) heart failure Chronic respiratory failure with hypoxia Contusion of knee, right COPD (chronic obstructive pulmonary disease) Depression Diabetes Dyspnea on exertion Essential hypertension GERD (gastroesophageal reflux disease) Hidradenitis History of left heart catheterization (LHC) (~01/05/19) History of MRSA infection Hyperglycemia due to type 2 diabetes mellitus Hyperlipidemia Hypertension Morbid obesity Necrotizing soft tissue infection Non-healing open wound of left groin NSTEMI (non-ST elevated myocardial infarction) 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 Old myocardial infarction On home oxygen therapy Open wound of vulva with complication Opiate overdose Pulmonary embolism Respiratory failure with hypoxia Restrictive lung disease secondary to obesity Sleep apnea Smoker Soft tissue abscess of inguinal region Tobacco abuse Type 2 diabetes mellitus Home Medications multivit-iron 18 mg-folic acid 400 mcg-calcium 500 mg-minerals tablet 1 ea PO DAILY supplement 03/26/17 [History Last Taken 12/09/22] omeprazole 40 mg capsule,delayed release 40 mg PO DAILY GERD 12/15/18 [History Last Taken 12/09/22] loratadine 10 mg tablet 10 mg PO DAILY PRN Allergies 03/01/20 [History Last Taken 12/09/22] apixaban 5 mg tablet 5 mg PO BID blood thinner 08/20/20 [History Last Taken 12/09/22] diltiazem HCl 120 mg capsule,extended release 24 hr 120 mg PO DAILY heart rate 08/20/20 [History Last Taken 12/09/22] lisinopril 10 mg tablet 10 mg PO DAILY blood pressure 03/26/21 [History Last Taken 12/09/22] metformin 500 mg tablet,extended release 24 hr 2,000 mg PO DAILY diabetes 03/26/21 [History Last Taken 01/15/22] metoprolol succinate 25 mg tablet,extended release 24 hr 25 mg PO DAILY blood pressure 03/26/21 [History Last Taken 12/09/22] atorvastatin 80 mg tablet 100 mg PO QHS Check with primary doctor 02/07/22 [History Last Taken 12/09/22] furosemide 40 mg tablet 40 mg PO BID diuretic 09/22/22 [History Last Taken 12/09/22] ammonium lactate 12 % lotion 1 applic topical TID 30 days #400 grams 09/24/22 [Rx Last Taken 12/08/22] insulin lispro 100 unit/mL subcutaneous pen (Humalog KwikPen (U-100) Insulin) 50 unit (0.5 mL) subcut TIDAC #0 mL 09/24/22 [Rx Last Taken 12/09/22] albuterol sulfate 2.5 mg/3 mL (0.083 %) solution for nebulization 2.5 mg inhalation Q4H PRN SOB 12/09/22 [History Last Taken 12/08/22] doxycycline monohydrate 100 mg capsule 100 mg PO BID #14 CAPSULES 12/09/22 [Rx Last Taken Unknown] empagliflozin 10 mg tablet (Jardiance) 10 mg PO DAILY DM 12/09/22 [History Last Taken 12/09/22] fenofibrate nanocrystallized 145 mg tablet 145 mg PO DAILY CHOLESTEROL 12/09/22 [History Last Taken 12/09/22] furosemide 20 mg tablet 20 mg PO DAILY diuretic 12/09/22 [History Last Taken Unknown] gabapentin 800 mg tablet 800 mg PO TID NERVE PAIN 12/09/22 [History Last Taken 12/09/22] insulin glargine U-300 conc 300 unit/mL (3 mL) subcutaneous pen (Toujeo Max U- 300 SoloStar) 150 unit subcut DAILY DM 12/09/22 [History Last Taken 12/09/22] nicotine (polacrilex) 2 mg buccal mini lozenge 2 mg PO PRN PRN Smoking Cessation 12/09/22 [History Last Taken 12/08/22] potassium chloride 20 mEq tablet,extended release 20 meq PO BID Check with primary doctor 12/19/22 [History Last Taken Unknown] insulin degludec 200 unit/mL (3 mL) subcutaneous pen (Tresiba FlexTouch U-200 insulin) 104 unit subcut BID DM 12/24/22 [History Last Taken Unknown] clindamycin HCl 300 mg capsule (Cleocin HCl) 300 mg PO 4X/DAY #40 CAPSULES 01/12/23 [Rx Last Taken Unknown] Allergy/AdvReac Type Severity Reaction Status Date / Time cyclobenzaprine HCl Allergy Hives Verified 01/12/23 23:11 [From Flexeril] venlafaxine [From Effexor] AdvReac Severe unknown Verified 01/12/23 23:11 Family History Father CVA (cerebral vascular accident) Heart disease Diabetes Mother Thyroid disorder Surgical History H/O arthroscopic knee surgery History of delivery History of cholecystectomy Social History household members: none Smoking Status: Current some day smoker tobacco type: cigarettes how long ago did patient quit smokin PPD smoker second hand exposure: Yes alcohol intake: never substance use type: does not use caffeine: Yes Type: carbonated beverages Number of servings: 1 and coffee Number of servings: 1 ROS ROS ED Constitutional Constitutional ED: Denies chills or fever(s) ENT ENT ED: Denies sore throat Cardiovascular Cardiovascular: Denies chest pain Respiratory/Chest Respiratory/Chest: Reports cough and dyspnea Gastrointestinal Gastrointestinal: Denies abdominal pain, diarrhea, nausea or vomiting Genitourinary Genitourinary ED: Denies dysuria Musculoskeletal Musculoskeletal: Denies myalgias Integumentary Reports abscess; Denies rash Neurologic Neurologic: Denies headache(s) Hematologic/Lymphatic Hematologic/Lymphatic: Denies easy bleeding or easy bruising EXAM Physical Exam Const Vital Signs: 01/12/23 23:09 Temperature 98.2 F Temperature Source Temporal Pulse Rate 85 Respiratory Rate 16 Blood Pressure 157/63 H Blood Pressure Mean 94 Pulse Ox 96 Oxygen Delivery Method Nasal Cannula Oxygen Flow Rate (L/min) 3 Positive well nourished, well developed and obese General Appearance ED: well developed Nutritional Appearance: obese HEENT Reports dry mucous membranes Mouth ED: Yes dry mucous membranes Mouth: dry mucous membranes Eyes PERRL and EOMs intact bilaterally Neck supple Resp normal respiratory effort Resp Narrative: Breath sounds are diminished throughout with slight rhonchi and expiratory wheeze in bilateral lower lobes Cardio regular rate and regular rhythm GI normal to inspection, nondistended, normoactive bowel sounds, non-tender, non- distended and no masses GI Narrative: No voluntary guarding or rigidity no pulsatile mass Auscultation: normoactive bowel sounds Palpation: soft Narrative: Patient has postsurgical changes in the left inguinal region. There is spontaneous drainage of a combination of thin watery and thick purulent discharge. In the right inguinal region there is a small roughly 2 x 3 cm of erythema with 3 small less than 1 cm areas of induration along the medial upper inner thigh. There is no active drainage or lymphangitic streaking or asymmetric warmth. No crepitance palpated Extremity normal to inspection Neuro oriented x3 and CN's II-XII intact bilaterally Sensorium / Orientation: alert Psych mental status grossly normal Skin Skin Narrative: Soft tissue changes to the genital/thigh region as documented above MDM MDM MDM Narrative Medical decision making narrative: Patient presented to the ER afebrile. Her physical exam shows postsurgical changes and the development of what appears to be cellulitis with early abscess in the right inguinal fold/proximal thigh. With her recent history of necrotizing fasciitis there was concern for this once again but her exam does not have any type of crepitance and she is afebrile. I discussed with patient that we could repeat laboratory studies and CT scan to confirm there is no obvious drainable fluid collection or signs of necrotizing fasciitis. Patient states that this does not feel similar to that event but she is just worried that it could progress to it and is only looking for antibiotics. She states she does not want any imaging or laboratory studies. Therefore at this time we will place patient on clindamycin for this infectious process. But as she does not have signs of systemic infection or any drainable fluid pockets and she is requesting not to have imaging or laboratory studies I will abide by her wishes and start her on antibiotics only. Patient also states she has an appointment with the surgeon for follow-up in the next 24 hours and agrees to return if symptoms fail to improve or worsen. Discharge Plan Triage Chief Complaint: Abscess ED Provider: Eulogio Jiang Dx/Rx/DC Orders Clinical Impression: Abscess or cellulitis of groin, Morbid obesity, Diabetes Instructions: Cellulitis Dc, ED Abscess Antibiotic Treatment Only Prescriptions: New clindamycin HCl [Cleocin HCl] 300 mg capsule 300 mg PO 4X/DAY Qty: 40 0RF No Action loratadine 10 mg tablet 10 mg PO DAILY PRN (Reason: Allergies) lisinopril 10 mg tablet 10 mg PO DAILY Label Comments: TAKE 1 TABLET BY MOUTH EVERY DAY metformin 500 mg tablet extended release 24 hr 2,000 mg PO DAILY metoprolol succinate 25 mg tablet extended release 24 hr 25 mg PO DAILY Label Comments: TAKE 1 TABLET BY MOUTH EVERY DAY atorvastatin 80 mg tablet 100 mg PO QHS [id number]-[id number]-calcium-mins 1 EACH tablet 1 ea PO DAILY Label Comments: vitamin omeprazole 40 MG capsule,delayed release(DR/EC) 40 mg PO DAILY diltiazem HCl 120 MG capsule 120 mg PO DAILY apixaban 5 MG tablet 5 mg PO BID furosemide 40 mg tablet 40 mg PO BID Label Comments: Take 1 tablet by mouth twice daily. insulin lispro [Humalog KwikPen Insulin] 100 unit/mL Insulin Pen 50 unit subcut TIDAC Qty: 0 0RF ammonium lactate 12 % Lotion 1 applic topical TID 30 Days Qty: 400 0RF Protocol: *Topical Application Instructions APPLICATION INSTRUCTIONS: apply to both legs and affected dry areas of the body albuterol sulfate 2.5 mg /3 mL (0.083 %) solution for nebulization 2.5 mg inhalation Q4H PRN (Reason: SOB) gabapentin 800 mg tablet 800 mg PO TID furosemide 20 mg tablet 20 mg PO DAILY fenofibrate nanocrystallized 145 mg tablet 145 mg PO DAILY Jardiance 10 mg tablet 10 mg PO DAILY nicotine (polacrilex) 2 mg mini lozenge 2 mg PO PRN PRN (Reason: Smoking Cessation) Toujeo Max U-300 SoloStar 300 unit/mL (3 mL) insulin pen 150 unit SUBCUT DAILY doxycycline monohydrate 100 mg capsule 100 mg PO BID Qty: 14 0RF potassium chloride 20 mEq tablet extended release 20 meq PO BID insulin degludec [Tresiba FlexTouch U-200] 200 unit/mL (3 mL) insulin pen 104 unit SUBCUT BID Label Comments: INJECT 100 UNITS SUBCUTANEOUSLY TWICE DAILY (this replaces levemir) Primary Care Provider: Tino Oreilly Referrals: Tino Oreilly MD [Primary Care Provider] - Activity Restrictions/Additional Instructions: Please follow-up with your surgeon for repeat evaluation. Take antibiotic as directed to resolve any returning infection and if you have any further concerns or develop a fever please return to the ER for repeat evaluation Disposition Disposition: Home, Self Care Discharge Date/Time: 01/13/23 00:13
[2023-01-13] MEDS: oxyCODONE 5 MG Tablet 10 MG PO
[2023-01-13] MEDS: Clindamycin HCl 150 MG Capsule 300 MG PO
== END 2023-01-13 00:13 | disposition home or self-care (01) ==
PROVIDERS: Emergency Provider Emergency Medicine; PCP Family Medicine; Visit Provider Emergency Medicine
DX: L02.214 Cutaneous abscess of groin (principal); M72.6 Necrotizing fasciitis; J44.9 Chronic obstructive pulmonary disease, unspecified; I11.0 Hypertensive heart disease with heart failure; I50.32 Chronic diastolic (congestive) heart failure; E66.01 Morbid (severe) obesity due to excess calories; E11.9 Type 2 diabetes mellitus without complications; F17.210 Nicotine dependence, cigarettes, uncomplicated; E78.5 Hyperlipidemia, unspecified; L03.314 Cellulitis of groin
CPT/HCPCS: 99282

== ENCOUNTER 2023-02-18 16:42 | Emergency (ER) | payer MEDICARE, MEDICAID, SELFPAY ==
[2023-02-18 16:42] VITALS: BP 125/54; PULSE 114; RESP 18; TEMP 37; O2SAT 92
[2023-02-18 17:23] VITALS: BMI 63.6
--- NOTE | 2023-02-18 17:31 | CT_ITS ---
INDICATION: abscess EXAMINATION: CT BONE - CT Lower Extremity W/ Contrast Injection TECHNIQUE: Helically acquired images were obtained of the left lower extremity to just below the knee. 2-D reformats were performed by the technologist. A radiation dose optimization technique was used for this scan. IV Contrast dosage and agent: None. COMPARISON: None. FINDINGS: SOFT TISSUES: Partial visualization of medial left thigh skin thickening and subcutaneous gas.. No radiopaque foreign body. BONES/JOINTS: No acute fracture or subluxation. Femoral acetabular joint space narrowing. Left knee tricompartmental joint space narrowing with osteophytes and small suprapatellar effusion. Preservation of the joint space. No sclerotic or destructive changes. CT/Extremity Lower WITH Contrast IMPRESSION: Left hip and knee DJD with small suprapatellar knee joint effusion. Electronically Signed: Leonides Lakhani MD at 19:57 EDT ,
--- NOTE | 2023-02-18 17:31 | CT_ITS ---
INDICATION: Abscess EXAMINATION: CT ABDOMEN AND PELVIS WITH CONTRAST - CT Abdomen And Pelvis W/ Contrast Injection TECHNIQUE: Helically acquired images were obtained of the abdomen and pelvis following IV contrast. A radiation dose optimization technique was used for this scan. IV Contrast dosage and agent: 100 mL Isovue-370 Oral contrast: None. COMPARISON: 07/14/2021 CTA chest; 12/24/[address] FINDINGS: LOWER CHEST: Lung bases are clear. No cardiomegaly or pericardial effusion. LIVER: Homogeneous. No focal mass. GALLBLADDER AND BILIARY TREE: Gallbladder not visualized, probably surgically absent. No intra- or extrahepatic biliary ductal dilation. PANCREAS: No focal cystic or solid mass. SPLEEN: Normal size without focal cystic or solid mass. ADRENAL GLANDS: 3.3 cm left adrenal nodule. KIDNEYS AND URETERS: Normal renal size and position. No hydronephrosis. PERITONEUM: No ascites or free air. No other fluid collection. BOWEL: No evidence of acute appendicitis. No stomach or bowel distension. No focal inflammatory change. LYMPH NODES: No enlarged mesenteric or retroperitoneal lymph nodes. VESSELS: Aorta is non-dilated. URINARY BLADDER: Unremarkable. REPRODUCTIVE ORGANS: No pelvic masses. ABDOMINAL WALL: Left upper thigh skin thickening and ulceration. Small residual subcutaneous gas. BONES: Normal thoracolumbar vertebral alignment. CT/Abdomen/Pelvis W IV Cont ONLY IMPRESSION: Decreased appearance of left upper thigh skin thickening, ulceration, and subcutaneous gas. 3.3 cm left adrenal nodule was present on 07/14/2021 CTA chest, and probably represents an adenoma. No other acute abnormal finding in the abdomen or pelvis. Electronically Signed: Leonides Lakhani MD at 19:51 EDT ,
--- NOTE | 2023-02-18 17:36 | CT_ITS ---
INDICATION: abscess EXAMINATION: CT BONE - CT Lower Extremity W/O Contrast Injection TECHNIQUE: Helically acquired images were obtained of the right lower extremity to just below the knee. 2-D reformats were performed by the technologist. A radiation dose optimization technique was used for this scan. IV Contrast dosage and agent: None. COMPARISON: None. FINDINGS: SOFT TISSUES: No soft tissue swelling or gas. No radiopaque foreign body. BONES/JOINTS: No acute fracture or subluxation. Normal alignment. Femoral acetabular joint space narrowing. Tricompartmental joint space narrowing and small suprapatellar knee joint effusion. No sclerotic or destructive changes. CT/Extremity Lower WITH Contrast IMPRESSION: Right hip and knee DJD with small suprapatellar knee joint effusion. Electronically Signed: Leonides Lakhani MD at 19:55 EDT ,
--- NOTE | 2023-02-18 17:40 | EX.ED.DYSGE1 ---
HPI History of Present Illness Chief Complaint: Abscess Informant: patient Narrative Narrative: Patient presents with worsening abscess. This is a an obese diabetic female who developed abscess in the groin. This had surgery at [facility] about 4 weeks ago. Several days later they went in and did repeat surgery. She does not recall the name of the physician who did the surgery. She has not seen the individual since about 3 weeks ago. She was on antibiotics back then. She has not been on them since. She has had a visiting nurse see her. Things were healing until this past Friday 4-5 days ago. Since then the pain is increased, the redness is increased, the odor is increased, and the drainage is increased, patient has had intermittent nausea but never vomited. She has felt hot and cold but never measured a temperature. Her appetite is down. Her sugars are running in the mid 200s but that is her normal level. She saw her primary physician today who wrote for an unknown antibiotic and told her to go to the nearest emergency department. She presented here. She has not yet contacted her surgeon. [facility] Medical History Abscess Abscess of vulva KERRY (acute kidney injury) Anxiety BiPAP (biphasic positive airway pressure) dependence Chronic diastolic (congestive) heart failure Chronic respiratory failure with hypoxia Contusion of knee, right COPD (chronic obstructive pulmonary disease) Depression Diabetes Dyspnea on exertion Essential hypertension GERD (gastroesophageal reflux disease) Hidradenitis History of left heart catheterization (LHC) (~01/05/19) History of MRSA infection Hyperglycemia due to type 2 diabetes mellitus Hyperlipidemia Hypertension Morbid obesity Necrotizing soft tissue infection Non-healing open wound of left groin NSTEMI (non-ST elevated myocardial infarction) 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 Old myocardial infarction On home oxygen therapy Open wound of vulva with complication Opiate overdose Pulmonary embolism Respiratory failure with hypoxia Restrictive lung disease secondary to obesity Sleep apnea Smoker Soft tissue abscess of inguinal region Tobacco abuse Type 2 diabetes mellitus Home Medications multivit-iron 18 mg-folic acid 400 mcg-calcium 500 mg-minerals tablet 1 ea PO DAILY supplement 03/26/17 [History Last Taken 12/09/22] omeprazole 40 mg capsule,delayed release 40 mg PO DAILY GERD 12/15/18 [History Last Taken 12/09/22] loratadine 10 mg tablet 10 mg PO DAILY PRN Allergies 03/01/20 [History Last Taken 12/09/22] apixaban 5 mg tablet 5 mg PO BID blood thinner 08/20/20 [History Last Taken 12/09/22] diltiazem HCl 120 mg capsule,extended release 24 hr 120 mg PO DAILY heart rate 08/20/20 [History Last Taken 12/09/22] lisinopril 10 mg tablet 10 mg PO DAILY blood pressure 03/26/21 [History Last Taken 12/09/22] metformin 500 mg tablet,extended release 24 hr 2,000 mg PO DAILY diabetes 03/26/21 [History Last Taken 01/15/22] metoprolol succinate 25 mg tablet,extended release 24 hr 25 mg PO DAILY blood pressure 03/26/21 [History Last Taken 12/09/22] atorvastatin 80 mg tablet 100 mg PO QHS Check with primary doctor 02/07/22 [History Last Taken 12/09/22] furosemide 40 mg tablet 40 mg PO BID diuretic 09/22/22 [History Last Taken 12/09/22] ammonium lactate 12 % lotion 1 applic topical TID 30 days #400 grams 09/24/22 [Rx Last Taken 12/08/22] insulin lispro 100 unit/mL subcutaneous pen (Humalog KwikPen (U-100) Insulin) 50 unit (0.5 mL) subcut TIDAC #0 mL 09/24/22 [Rx Last Taken 12/09/22] albuterol sulfate 2.5 mg/3 mL (0.083 %) solution for nebulization 2.5 mg inhalation Q4H PRN SOB 12/09/22 [History Last Taken 12/08/22] empagliflozin 10 mg tablet (Jardiance) 10 mg PO DAILY DM 12/09/22 [History Last Taken 12/09/22] fenofibrate nanocrystallized 145 mg tablet 145 mg PO DAILY CHOLESTEROL 12/09/22 [History Last Taken 12/09/22] furosemide 20 mg tablet 20 mg PO PRN PRN Edema 12/09/22 [History Last Taken Unknown] gabapentin 800 mg tablet 800 mg PO TID NERVE PAIN 12/09/22 [History Last Taken 12/09/22] insulin glargine U-300 conc 300 unit/mL (3 mL) subcutaneous pen (Toujeo Max U-300 SoloStar) 150 unit subcut DAILY DM 12/09/22 [History Last Taken 12/09/22] nicotine (polacrilex) 2 mg buccal mini lozenge 2 mg PO PRN PRN Smoking Cessation 12/09/22 [History Last Taken 12/08/22] potassium chloride 20 mEq tablet,extended release 20 meq PO BID Check with primary doctor 12/19/22 [History Last Taken Unknown] insulin degludec 200 unit/mL (3 mL) subcutaneous pen (Tresiba FlexTouch U-200 insulin) 104 unit subcut BID DM 12/24/22 [History Last Taken Unknown] Allergy/AdvReac Type Severity Reaction Status Date / Time cyclobenzaprine HCl Allergy Hives Verified 02/18/23 16:44 [From Flexeril] venlafaxine [From Effexor] AdvReac Severe unknown Verified 02/18/23 16:44 Family History Father CVA (cerebral vascular accident) Heart disease Diabetes Mother Thyroid disorder Surgical History H/O arthroscopic knee surgery History of delivery History of cholecystectomy Social History household members: none Smoking Status: Current some day smoker tobacco type: cigarettes how long ago did patient quit smokin PPD smoker second hand exposure: Yes alcohol intake: never substance use type: does not use caffeine: Yes Type: carbonated beverages Number of servings: 1 and coffee Number of servings: 1 ROS ROS ED Constitutional Constitutional ED: Reports subjective ENT ENT ED: Denies rhinorrhea Cardiovascular Cardiovascular: Denies chest pain Respiratory/Chest Respiratory/Chest: Denies cough Gastrointestinal Gastrointestinal: Reports nausea; Denies abdominal pain or vomiting Genitourinary Genitourinary ED: Denies dysuria Musculoskeletal Musculoskeletal: Reports myalgias Integumentary Reports abscess and rash Neurologic Neurologic: Denies headache(s) Endocrine Endocrinology: Denies polydipsia or polyuria Hematologic/Lymphatic Hematologic/Lymphatic: Reports easy bleeding and easy bruising Allergic/Immunologic Allergic/Immunologic ED: Denies urticaria EXAM Physical Exam Narrative Exam Narrative: Patient is awake alert able to give a good story of events. HEENT shows moist mucous membranes Lungs are clear but examined limited due to size. Heart is mildly tachycardic but sounds regular. Abdomen is obese but no focal tenderness. Note is made of some erythema and slight warmth at the lower 20% or so of the abdomen and this extends from down in mostly her left groin. : There is an open area about 6 x 12 or so centimeters mostly in the left inguinal region. There is erythema around this. The area is tender. It is somewhat malodorous and has moderate discharge. There is diffuse erythema of the skin around this. I do not feel any fluctuant area but exam is difficult. We did do exam with 2 nurses assisting to allow some visualization. We rolled the patient over. There is some erythema onto the buttock area but most of this seems to wrap more anteriorly. No sign of anal/rectal area involvement. Extremities are not small but there is no noted pitting edema. Neurologically she is awake alert appropriate. Const Vital Signs: 02/18/23 16:42 02/18/23 17:43 02/18/23 18:43 Temperature 98.6 F 98 F 98 F Temperature Source Temporal Temporal Temporal Pulse Rate 114 H 108 H 106 H Respiratory Rate 18 16 16 Blood Pressure 125/54 H 137/58 H 139/53 H Blood Pressure Mean 77 84 81 Pulse Ox 92 92 92 Oxygen Delivery Method Nasal Cannula Nasal Cannula Nasal Cannula Oxygen Flow Rate (L/min) 3 3 3 02/18/23 19:43 02/18/23 20:00 02/18/23 21:00 Temperature 98 F 98.1 F Temperature Source Temporal Temporal Pulse Rate 110 H 103 H Respiratory Rate 14 14 Blood Pressure 126/88 H 134/69 H 119/76 Blood Pressure Mean 100 90 90 Pulse Ox 91 92 Oxygen Delivery Method Nasal Cannula Nasal Cannula Oxygen Flow Rate (L/min) 5 5 MDM MDM MDM Narrative Medical decision making narrative: Patient CBC does show elevated white count slightly low hemoglobin. Platelets are normal. Electrolytes are not showing any marked abnormalities. Glucose was mildly elevated at 180. Lactic acid was normal at 1.6. Liver function showed no process. was negative. CT scan of abdomen and lower extremities showed DJD and improvement of the left thigh skin thickening and ulceration. However, her last film was done prior to surgery. My independent interpretation shows the open area with some stranding in the tissue but no sign of a definable abscess. I think this patient needs to come in the hospital. She has a slight white count subjective fevers, increased pain discharge and now increased erythema across the lower abdominal wall. She has diabetes and significant obesity that are going to make healing more difficult. She has been seen up at [facility] by Dr. Johnson. She has had surgery twice there. I discussed the case with her call center. They called evidently surgery and medicine. They recommend transfer to the ER. I discussed the case with the ER physician there. Patient will be transferred. This was discussed with the patient. Lab Data Attestation: I reviewed the patient's lab results. Labs: Laboratory Results - last 24 hr 02/18/23 02/18/23 02/18/23 17:44 17:44 17:44 WBC 13.4 H RBC 3.48 L Hgb 9.3 L Hct 32.6 L MCV 93.7 MCH 26.7 L MCHC 28.5 L RDW Std Deviation 56.1 H RDW Coeff of Darrion 16.3 H Plt Count 293 MPV 9.7 Immature Gran % (Auto) 0.700 Neut % (Auto) 75.7 H Lymph % (Auto) 17.3 L [place] % (Auto) 4.4 Eos % (Auto) 1.3 Baso % (Auto) 0.6 Absolute Neuts (auto) 10.2 H Absolute Lymphs (auto) 2.32 Nucleated RBC % 0 Sodium 137 Potassium 4.5 Chloride 103 Carbon Dioxide 31.0 Anion Gap 3 L BUN 15 Creatinine 0.82 Estim Creat Clear Calc 77.96 Est GFR (MDRD) Af Amer 97 Est GFR (MDRD) Non-Af 81 BUN/Creatinine Ratio 18.4 Glucose 180 H Lactic Acid 1.6 Calcium 8.3 L Total Bilirubin 0.20 AST 9 L ALT 15 Alkaline Phosphatase 68 Total Protein 7.2 Albumin 2.6 L Globulin 4.6 H Albumin/Globulin Ratio 0.6 L Serum , Qual 02/18/23 17:44 WBC RBC Hgb Hct MCV MCH MCHC RDW Std Deviation RDW Coeff of [place]ion Plt Count MPV Immature Gran % (Auto) Neut % (Auto) Lymph % (Auto) [place] % (Auto) Eos % (Auto) Baso % (Auto) Absolute Neuts (auto) Absolute Lymphs (auto) Nucleated RBC % Sodium Potassium Chloride Carbon Dioxide Anion Gap BUN Creatinine Estim Creat Clear Calc Est GFR (MDRD) Af Amer Est GFR (MDRD) Non-Af BUN/Creatinine Ratio Glucose Lactic Acid Calcium Total Bilirubin AST ALT Alkaline Phosphatase Total Protein Albumin Globulin Albumin/Globulin Ratio Serum , Qual NEGATIVE Radiography Diagnostic Testing: Clinical Impression(s) from Imaging Studies Abdomen/Pelvis CT 02/18/23 17:31 IMPRESSION: Decreased appearance of left upper thigh skin thickening, ulceration, and subcutaneous gas. 3.3 cm left adrenal nodule was present on 07/14/2021 CTA chest, and probably represents an adenoma. No other acute abnormal finding in the abdomen or pelvis. Electronically Signed: Leonides Lakhani MD at 19:51 EDT , Lower Extremity CT 02/18/23 17:31 IMPRESSION: Left hip and knee DJD with small suprapatellar knee joint effusion. Electronically Signed: Leonides Lakhani MD at 19:57 EDT , Lower Extremity CT 02/18/23 17:36 IMPRESSION: Right hip and knee DJD with small suprapatellar knee joint effusion. Electronically Signed: Leonides Lakhani MD at 19:55 EDT , Discharge Plan Triage Chief Complaint: Abscess ED Provider: Deejay Ornelas Dx/Rx/DC Orders Clinical Impression: Postoperative wound cellulitis, Morbid obesity, Diabetes mellitus, Coagulopathy Prescriptions: No Action loratadine 10 mg tablet 10 mg PO DAILY PRN (Reason: Allergies) lisinopril 10 mg tablet 10 mg PO DAILY Label Comments: TAKE 1 TABLET BY MOUTH EVERY DAY metformin 500 mg tablet extended release 24 hr 2,000 mg PO DAILY metoprolol succinate 25 mg tablet extended release 24 hr 25 mg PO DAILY Label Comments: TAKE 1 TABLET BY MOUTH EVERY DAY atorvastatin 80 mg tablet 100 mg PO QHS [id number] 1 EACH tablet 1 ea PO DAILY Label Comments: vitamin omeprazole 40 MG capsule,delayed release(DR/EC) 40 mg PO DAILY diltiazem HCl 120 MG capsule 120 mg PO DAILY apixaban 5 MG tablet 5 mg PO BID furosemide 40 mg tablet 40 mg PO BID Label Comments: Take 1 tablet by mouth twice daily. insulin lispro [Humalog KwikPen Insulin] 100 unit/mL Insulin Pen 50 unit subcut TIDAC Qty: 0 0RF ammonium lactate 12 % Lotion 1 applic topical TID 30 Days Qty: 400 0RF Protocol: *Topical Application Instructions APPLICATION INSTRUCTIONS: apply to both legs and affected dry areas of the body albuterol sulfate 2.5 mg /3 mL (0.083 %) solution for nebulization 2.5 mg inhalation Q4H PRN (Reason: SOB) gabapentin 800 mg tablet 800 mg PO TID furosemide 20 mg tablet 20 mg PO PRN PRN (Reason: Edema) fenofibrate nanocrystallized 145 mg tablet 145 mg PO DAILY Jardiance 10 mg tablet 10 mg PO DAILY nicotine (polacrilex) 2 mg mini lozenge 2 mg PO PRN PRN (Reason: Smoking Cessation) Toujeo Max U-300 SoloStar 300 unit/mL (3 mL) insulin pen 150 unit SUBCUT DAILY potassium chloride 20 mEq tablet extended release 20 meq PO BID insulin degludec [Tresiba FlexTouch U-200] 200 unit/mL (3 mL) insulin pen 104 unit SUBCUT BID Label Comments: INJECT 100 UNITS SUBCUTANEOUSLY TWICE DAILY (this replaces levemir) Primary Care Provider: Tino Oreilly Referrals: Tino Oreilly MD [Primary Care Provider] - Disposition Disposition: Acute Care Hospital Discharge Location: [facility]
[2023-02-18 17:43] VITALS: BP 137/58; PULSE 108; RESP 16; TEMP 36.6; O2SAT 92
[2023-02-18] MEDS: 0.9% Normal Saline 1,000 ML 1000 ML IV (17:47)
[2023-02-18 18:01] LABS: Absolute Lymphocyte Count 2.32 X10^3/uL (0.83-4.51); Absolute Neutrophil Count 10.2 X10^3/uL (2.0-7.7); Basophil# 0.08 X10^3/uL; Basophil% 0.6 % (0-1); Eosinophil# 0.17 X10^3/uL; Eosinophils% 1.3 % (0-5); Hematocrit 32.6 % (37-47); Hemoglobin 9.3 g/dL (12.0-15.0); Lymphocyte # 2.32 X10^3/ul (0.83-4.51); Lymphocyte % 17.3 % (19-41); Mean Corp Hgb Conc 28.5 g/dL (32-36); Mean Corpuscular Hgb 26.7 pg (27.0-32.0); Mean Corpuscular Volume 93.7 fL (81-99); Mean Platelet Vol. 9.7 fl (6.2-12.0); Monocyte# 0.59 X10^3/uL; Monocyte% 4.4 % (0-10); NRBC Flagged by Analyzer 0 % (0-5); Neutrophil # 10.15 X10^3/uL (2.7-7.7); Neutrophil % 75.7 % (47-70); Platelet Count 293 K/mm3 (150-450); RBC Distribution Width CV 16.3 % (11.6-14.6); RBC Distribution Width SD 56.1 fl (35.1-43.9); Red Blood Count 3.48 M/mm3 (4.2-5.4); White Blood Count 13.4 K/mm3 (4.4-11.0)
[2023-02-18 18:18] LABS: ALB/GLOB Ratio 0.6 RATIO (0.9-2.4); AST(SGOT) 9 U/L (15-37); Alanine Aminotransfer ALT/SGPT 15 U/L (13-56); Albumin, Serum 2.6 g/dL (3.2-5.0); Alkaline Phosphatase 68 U/L (45-117); Anion Gap 3 (5-15); BUN 15 mg/dL (7-18); BUN/Creat Ratio 18.4 RATIO (10-20); Calcium,Total 8.3 mg/dL (8.5-10.1); Chloride 103 mmol/L (98-107); Creatinine, Serum 0.82 mg/dL (0.55-1.02); EST Glomerular Filtration Rate 81 mL/min (>60); Est Glom Filt Rate - Afr Amer 97 mL/min (>60); Estimated Creatinine Clearance 77.96 ml/min; Globulin 4.6 g/dL (2.2-4.2); Glucose 180 mg/dL (74-106); Potassium 4.5 mmol/L (3.5-5.1); Protein, Total 7.2 g/dL (6.4-8.2); Sodium Level 137 mmol/L (136-145)
[2023-02-18 18:21] LABS: Lactic Acid 1.6 mmol/L (0.4-1.9)
[2023-02-18] MEDS: Morphine 4 MG/ML Syringe IV ×2 (18:22→23:02)
[2023-02-18 18:43] VITALS: BP 139/53; PULSE 106; RESP 16; TEMP 36.6; O2SAT 92
[2023-02-18 18:47] LABS: Internal QC Validated? YES +Cl - CLEAR BKGD; Pregnancy, Serum, hCG Quali. NEGATIVE Negative
[2023-02-18 19:43] VITALS: BP 126/88; PULSE 110; RESP 14; TEMP 36.6; O2SAT 91
[2023-02-18 20:00] VITALS: BP 134/69; PULSE 103; RESP 14; TEMP 36.7; O2SAT 92
[2023-02-18 21:00] VITALS: BP 119/76
--- NOTE | 2023-02-18 22:02 | NURSING ---
CALLED PHYSICANS TO SET UP TRANSPORT- ETA 90MIN TO 2 HRS
== END 2023-02-18 23:17 | disposition short-term general hospital (02) ==
PROVIDERS: Emergency Provider Emergency Medicine; PCP Family Medicine; Visit Provider Emergency Medicine
DX: T81.49XA Infection following a procedure, other surgical site, initial encounter (principal); E11.622 Type 2 diabetes mellitus with other skin ulcer; J44.9 Chronic obstructive pulmonary disease, unspecified; I50.32 Chronic diastolic (congestive) heart failure; I11.0 Hypertensive heart disease with heart failure; E11.65 Type 2 diabetes mellitus with hyperglycemia; E66.01 Morbid (severe) obesity due to excess calories; D68.9 Coagulation defect, unspecified; F17.210 Nicotine dependence, cigarettes, uncomplicated; M16.0 Bilateral primary osteoarthritis of hip; E78.5 Hyperlipidemia, unspecified; L03.314 Cellulitis of groin
CPT/HCPCS: 73701; 74177; 80053; 83605; 84703; 85025; 87040; 96365; 96366; 96375; 96376; 99282; J7030; J7040; Q9967; A4216

== ENCOUNTER 2023-03-02 13:53 | Observation (INO) | payer MEDICARE, MEDICAID, SELFPAY ==
[2023-03-02] VITALS (23 sets, daily range): BP systolic 108–170; BP diastolic 60–97; PULSE 77–106; RESP 10–24; TEMP 36.2–37.4; O2SAT 82–95; BMI 62.8; BMI 63.3
--- OUTSIDE RECORDS SUMMARY | 2023-03-02 13:58 | XMS RPT_ITS | CCD ---
:1975 Author Organization [facility] Team Providers Name Role Phone Panfilo Oreilly MD Primary Care Provider Shreya Mccray Unavailable [place] Dumont Unavailable Brandee Cotter ([facility]) Unavailable [place] Dumont Unavailable [facility], Robert Unavailable PANFILO OREILLY Referring Unavailable PANFILO OREILLY Primary Care Unavailable Panfilo Oreilly MD Primary Care Provider Shreya Mccray MD Unavailable [place] Dumont Unavailable Brandee Cotter ([facility]) Unavailable [place] Dumont Unavailable [facility], Robert Unavailable Shonna [facility], Brissa Unavailable Keo RN, Mimi Unavailable Unavailable Keo VENTURA, Mimi Unavailable Unavailable Raquel Payne RN Unavailable Unavailable Jose WILLIS, Dianne Unavailable [phone] PANFIOL OREILLY Primary Care Unavailable PANFILO OREILLY Primary Care Unavailable GILDA KIMBROUGH Admitting Unavailable MEGHAN JOHNSON Attending Unavailable CONRADO PUTNAM Consulting Unavailable PANFILO OREILLY Primary Care Unavailable HUBERT LEBLANC Admitting Unavailable MEGHAN JOHNSON Attending Unavailable WALTER YOUNG Consulting Unavailable HUBERT LEBLANC Referring Unavailable BURSLEY, CHRISTOPHER B Primary Care Unavailable CODY OLSON Admitting Unavailable MEGHAN OJHNSON Attending Unavailable BURSLEY, CHRISTOPHER B Primary Care Unavailable Borges [facility], Annie Unavailable Son VENTURA, Carlos Unavailable Panfilo Oreilly MD Unavailable Kendra VENTURA, Bharat Unavailable OZZY, CHRISTOPHER B Attending Unavailable BURSLEY, CHRISTOPHER B Primary Care Unavailable BURSLEY, CHRISTOPHER B Attending Unavailable BURSLEY, CHRISTOPHER B Primary Care Unavailable BURSLEY, CHRISTOPHER B Attending Unavailable BURSLEY, CHRISTOPHER B Referring Unavailable BURSLEY, CHRISTOPHER B Primary Care Unavailable BURSLEY, CHRISTOPHER B Referring Unavailable BURSLEY, CHRISTOPHER B Primary Care Unavailable BURSLEY, CHRISTOPHER B Primary Care Unavailable BURSLEY, CHRISTOPHER B Referring Unavailable BURSLEY, CHRISTOPHER B Primary Care Unavailable BURSLEY, CHRISTOPHER B Referring Unavailable BURSLEY, CHRISTOPHER B Primary Care Unavailable BURSLEY, CHRISTOPHER B Referring Unavailable BURSLEY, CHRISTOPHER B Primary Care Unavailable BURSLEY, CHRISTOPHER B Attending Unavailable BURSLEY, CHRISTOPHER B Primary Care Unavailable BURSLEY, CHRISTOPHER B Referring Unavailable BURSLEY, CHRISTOPHER B Primary Care Unavailable BURSLEY, CHRISTOPHER B Referring Unavailable BURSLEY, CHRISTOPHER B Primary Care Unavailable BURSLEY, CHRISTOPHER B Primary Care Unavailable BERENICE BAUMAN Attending Unavailable BURSLEY, CHRISTOPHER B Referring Unavailable BURSLEY, CHRISTOPHER B Primary Care Unavailable BERENICE BAUMAN Referring Unavailable BURSLEY, CHRISTOPHER B Referring Unavailable BURSLEY, CHRISTOPHER B Primary Care Unavailable BURSLEY, CHRISTOPHER B Referring Unavailable BURSLEY, CHRISTOPHER B Primary Care Unavailable PODLOGARHALLIE Attending Unavailable BURSLEY, CHRISTOPHER B Primary Care Unavailable BURSLEY, CHRISTOPHER B Referring Unavailable BURSLEY, CHRISTOPHER B Primary Care Unavailable BURSLEY, CHRISTOPHER B Referring Unavailable BURSLEY, CHRISTOPHER B Primary Care Unavailable BURSLEY, CHRISTOPHER B Primary Care Unavailable ANITA MOSLEY Attending Unavailable BURSLEY, CHRISTOPHER B Referring Unavailable BURSLEY, CHRISTOPHER B Primary Care Unavailable HALLIE MARTINEZ Referring Unavailable BURSLEY, CHRISTOPHER B Primary Care Unavailable BURSLEY, CHRISTOPHER B Primary Care Unavailable PANFILO OREILLY Referring Unavailable PANFILO OREILLY Primary Care Unavailable Allergies Allergy Reported Allergy Type Date of Reaction(s) Facility Classification Allergen(s) Onset cyclobenzaprine; Drug Allergy 02-12-2017 Darrell Ball (20 sources) Translations: Clinic [CYCLOBENZAPRINE HCL] Sertraline; Drug Allergy 02-14-2021 Vomiting Raheel nesbitt (20 sources) Translations: Work Phon e: [SERTRALINE] Medications Current Medications Medication Drug Class(es) Dates Sig (Normalized) Sig (Orig inal) atorvastatin 80 mg oral tablet HMG-CoA Start: 08-03-2021 take 1 tablet by atorvastatin (20 sources) Reductase End: 07-02-2023 mouth once daily (LIPITOR ) 80 mg Inhibitor tablet Indicati ons: Hyperlipidemia, unspecified hyperlipidemia type Take 1 tablet b y mouth once naya y. 90 tablet 0 202207/02/2023 Acti ve Comment on above: Take 1 tablet by mouth once daily. clotrimazole 10 mg/ml topical cream Azole Antifungal Start: 022 clotrimazole (LOTRIMIN, (4 sources) End: 04-11-2022 CLOTRIM) 1 % cream Apply to affect ed area twice daily for 14 days. 45 g 1 04/11/2022 Acti ve Comment on above: Apply to affected area twice daily for 14 days. 24 hr dilTIAZem hydrochloride 120 mg extended release oral c apsule Calcium Start: 08-03-2021 take 1 capsule dilTIAZem CD (20 sources) Channel End: 07-02-2023 by mouth once (CARDIZEM C D) 120 Eugene daily mg 24 hr capsul e Indications: Ischemia of hea rt, chronic Take 1 capsule by mout h once daily. 90 capsule 3 01/03/2023 07/02/2023 Acti ve Comment on above: Take 1 capsule by mouth once daily. dulaglutide (TRULICITY) 4.5 mg/0.5 mL pen injector Start: 09-09-2022 inject 4.5 mg by dulaglutide (TRULICITY) (20 sources) End: 12-13-2022 subcutaneous 4.5 mg/0.5 m L pen injection every week injecto r Inject 4.5 mg subcutaneously one time a week. 2 mL 5 09/09/202212/01 Discontinued Start: 09-09-2022 inject 4.5 mg by subcutaneous dulaglutid e (TRULICITY) 4.5 injection every week mg/0.5 mL pen injec tor Inject 4.5 mg subcutaneously on e time a week. 2 mL 5 Active Start: 07-09-2022 inject 4.5 mg by subcutaneous dulaglutid e (TRULICITY) 4.5 End: 09-09-2022 injection every week mg/0.5 mL pen injec tor Inject 4.5 mg subcutaneously on e time a week. 2 mL 5 09/09/2022 Discontin ued Start: 07-09-2022 inject 4.5 mg by subcutaneous dulaglutid e (TRULICITY) 4.5 injection every week mg/0.5 mL pen injec tor Inject 4.5 mg subcutaneously on e time a week. 2 mL 5 Active Start: 03-29-2022 inject 4.5 mg by subcutaneous dulaglutid e (TRULICITY) 4.5 End: 07-09-2022 injection every week mg/0.5 mL pen injec tor Inject 4.5 mg subcutaneously on e time a week. 2 mL 5 022 07/09/2022 Discontin ued Start: 03-29-2022 inject 4.5 mg by subcutaneous dulaglutid e (TRULICITY) 4.5 injection every week mg/0.5 mL pen injec tor Inject 4.5 mg subcutaneously on e time a week. 2 mL 5 Active Start: 09-25-2021 inject 4.5 mg by subcutaneous dulaglutid e (TRULICITY) 4.5 injection every week mg/0.5 mL pen injec tor Inject 4.5 mg subcutaneously on e time a week. 2 mL 5 Active Comment on above: Inject 4.5 mg subcutaneously one time a week. fenofibrate 145 mg oral tablet Peroxisome Start: 08-03-2021 take 1 fenofibrate (20 sources) Proliferator End: 07-02-2023 tablet by nanocrystall ized Receptor alpha mouth once (TRICOR) 145 mg tablet Agonist daily Take 1 tablet b y mouth once daily. 90 tablet 0 01/03/2023 07/02/2023 Acti ve Comment on above: Take 1 tablet by mouth once daily. flash glucose scanning reader (FREESTYLE DOMENICO 14 DAY READER ) Start: 12-05-2022 flash glucose scanning reade r (20 sources) End: 06-03-2023 (FREESTYLE L IBRE 14 DAY READER) 1 Device four t imes daily. 1 Each 0 12/05/1906/03/2023 Suspended Start: 12-05-2022 flash glucose scanni ng reader (FREESTYLE DOMENICO 14 DAY READER) 1 End: 06-03-2023 Device four times da lara. 1 Each 0 12/05/2022 06/03/2023 Active Start: 07-09-2022 flash glucose scanni ng reader (FREESTYLE DOMENICO 14 DAY READER) 1 End: 12-05-2022 Device four times da lara. 1 Each 0 07/09/2022 12/05/2022 Discontinued Start: 07-09-2022 flash glucose scanni ng reader (FREESTYLE DOMENICO 14 DAY READER) 1 End: 01-05-2023 Device four times da lara. 1 Each 0 07/09/2022 01/05/2023 Active Start: 02-06-2022 flash glucose scanni ng reader (FREESTYLE DOMENICO 14 DAY READER) 1 End: 07-09-2022 Device four times da lara. 1 Each 0 02/06/2022 07/09/2022 Discontinued Start: 02-06-2022 flash glucose scanni ng reader (FREESTYLE DOMENICO 14 DAY READER) 1 End: 08-05-2022 Device four times da lara. 1 Each 0 02/06/2022 08/05/2022 Active Start: 02-14-2021 flash glucose scanni ng reader (FREESTYLE DOMENICO 14 DAY READER) End: 01-25-2022 Indications: Type 2 diabetes mellitus with diabetic polyneuropathy, with long-term current use of insulin (HCC) To use 4 times daily to monitor glucose. Dx: uncontrolled type II DM on insulin 1 Each 0 02/14/2021 01/25/2022 Discontinued (Cost of medication) Comment on above: To use 4 times daily to henny tor glucose. Dx: uncontrolled type II DM on insulin 1 Device four times daily. flash glucose sensor (FREESTYLE DOMENICO 14 DAY SENSOR) kit Start: 12-31-2022 flash glucose sensor (FREESTYLE (20 sources) End: 06-29-2023 DOMENICO 14 DAY SENSOR) kit 1 Each once daily. Use 1 device for up to 14 days to m onitor sugars 4 times per day. 2 Each 5 12/31/202206/02 Suspended Start: 12-31-2022 flash glucose sensor (FREESTYLE DOMENICO 14 DAY SENSOR) kit 1 Each End: 06-29-2023 once daily. Use 1 de vice for up to 14 days to monitor sugars 4 times per day. 2 Eac h 5 12/31/2022 06/29/2023 Active Start: 07-09-2022 flash glucose sensor (FREESTYLE DOMENICO 14 DAY SENSOR) kit 1 Each End: 12-31-2022 once daily. Use 1 de vice for up to 14 days to monitor sugars 4 times per day. 2 Eac h 5 07/09/2022 12/31/2022 Discontinued Start: 07-09-2022 flash glucose sensor (FREESTYLE DOMENICO 14 DAY SENSOR) kit 1 Each End: 01-05-2023 once daily. Use 1 de vice for up to 14 days to monitor sugars 4 times per day. 2 Eac h 5 07/09/2022 01/05/2023 Suspended Start: 07-09-2022 flash glucose sensor (FREESTYLE DOMENICO 14 DAY SENSOR) kit 1 Each End: 01-05-2023 once daily. Use 1 de vice for up to 14 days to monitor sugars 4 times per day. 2 Eac h 5 07/09/2022 01/05/2023 Active Start: 02-06-2022 flash glucose sensor (FREESTYLE DOMENICO 14 DAY SENSOR) kit 1 Each End: 07-09-2022 once daily. Use 1 de vice for up to 14 days to monitor sugars 4 times per day. 2 Eac h 5 02/06/2022 07/09/2022 Discontinued Start: 02-06-2022 flash glucose sensor (FREESTYLE DOMENICO 14 DAY SENSOR) kit 1 Each End: 08-05-2022 once daily. Use 1 de vice for up to 14 days to monitor sugars 4 times per day. 2 Eac h 5 02/06/2022 08/05/2022 Active Start: 02-14-2021 flash glucose sensor (FREESTYLE DOMENICO 14 DAY SENSOR) kit End: 01-25-2022 Indications: Type 2 diabetes mellitus with diabetic polyneuropathy, with long-term current use of insulin (HCC) 1 Each four times naya y. 2 Kit 2 02/14/2021 01/25/2022 Discontinued (Cost o f medication) Comment on above: 1 Each four times daily. 1 Each once daily. Use 1 dev ice for up to 14 days to monitor sugars 4 times per day. lisinopril 10 mg oral tablet Angiotensin Start: 02-14-2021 take 1 tablet lisinopril (20 sources) Converting Enzyme End: 07-02-2023 by mouth once (ZESTR IL, PRINIVIL) Inhibitor daily 10 mg tablet Indications: Essential hypertension Ta ke 1 tablet by mouth once daily. 90 tablet 0 202207/02/2023 Acti ve Comment on above: Take 1 tablet by mouth once daily. 24 hr metFORMIN hydrochloride 500 mg extended release oral t ablet Biguanide Start: 06-22-2021 take 4 tablets metFORMIN ER (20 sources) End: 07-02-2023 by mouth once (GLUCOPHAGE XR) 500 mg daily in the 24 hr tablet morning Indications: Ty pe 2 diabetes mellit us with diabetic polyneuropathy, with long-term curre nt use of insulin (HCC ) Take 4 tablets by mo uth every morning. 360 tablet 0 202207/02/2023 Acti ve Comment on above: Take 4 tablets by mouth ever y morning. 24 hr metoprolol succinate 25 mg extended release oral table t beta-Adrenergic Start: 08-03-2021 take 1 metoprolol (20 sources) Eugene End: 07-02-2023 tablet by succinate ER mouth once (TOPROL XL) 25 mg daily 24 hr tablet Indications: Tachycardia Bi e 1 tablet by mouth once daily. 90 tablet 3 01/03/2023 07/02/2023 Acti ve Comment on above: Take 1 tablet by mouth once daily. nicotine 2 mg oral lozenge Cholinergic Nicotinic Start: 10-18-2022 Nicotine Polacrilex 2 (11 sources) Agonist End: 11-17-2022 mg lozenge Indications: To bacco use Place 1 Nedra enge between cheek a nd gum as needed. 48 L ozenge 2 10/18/2022 11/17/2022 Acti ve Start: 12-13-2021 Nicotine Polacrilex [address] 1 Lozenge between cheek End: 01-25-2022 and gum as needed. N ot to exceed 20 lozenges/day 72 Lozenge 5 12/13/2021 Discontinued (Course of therapy completed) Comment on above: Place 1 Lozenge between purnima k and gum as needed. Not to exceed 20 lozenges/day Place 1 Lozenge between purnima k and gum as needed. perflutren lipid microspheres 1.3 mL in NaCl (PF) 0.9% 10 mL injection (DEFINITY) Start: 07-09-2022 perflutren lip id microspheres (20 sources) End: 10-08-2023 1.3 mL in Na Cl (PF) 0.9% 10 mL injection (DEFI NITY) Start: 01-23-2022 perflutren lipid salvador rospheres 1.3 mL in NaCl (PF) 0.9% 10 mL End: 04-24-2023 injection (DEFINITY) Shower Chair with Back Start: 01-23-2022 Shower Chair with Back Indications: (20 sources) End: 01-23-2023 SOB (shortne ss of breath) , Oxygen dependent once daily. Use as directed 1 Each 0 202101/23/2023 Suspended Start: 01-23-2022 Shower Chair with Ba ck Indications: SOB (shortness of breath) , End: 01-23-2023 Oxygen dependent onc e daily. Use as directed 1 Each 0 01/23/2022 01/23/2023 Active Comment on above: once daily. Use as directed 125 ml sodium chloride 9 mg/ml prefilled syringe Start : 01-23-2022 sodium chloride (20 sources) End: 10-08-2023 0.9 % (flush ) 10 mL (BD POSIFLUSH) sulfamethoxazole 800 mg / trimethoprim 160 mg oral tablet Di hydrofolate Start: 02-20-2023 take 1 sulfamethoxazole (11 sources) Reductase Inhibitor End: 02-25-2023 tablet by -trim ethoprim Antibacterial, mouth every (BACTRIM DS) Sulfonamide twelve hours 800-160 mg per Antimicrobial tablet Take 1 tablet by mouth every 12 hours for 10 doses. 1 0 tablet 0 02/20/2023 02/25/2023 Active Start: 01-16-2023 take 1 tablet by mouth sulfamethoxazole- trimethoprim (BACTRIM DS) End: 01-21-2023 twice daily 800-160 mg per table t Take 1 tablet by mouth twice daily for 5 da ys. 10 tablet 0 01/16/2023 Active Comment on above: Take 1 tablet by mouth twice daily for 5 days. Take 1 tablet by mouth every 12 hours for 10 doses. Completed/Discontinued Medications Medication Drug Class(es) Dates Sig (Normalized) Sig (Orig inal) albuterol 0.83 mg/ml inhalation solution beta2-Adrenergic Start: albuterol (20 sources) Agonist End: 10-18-2022 (PROVENTIL) 2.5 mg /3 mL (0.083 %) nebulizer solut ion Indications: Bacterial pneumonia Use 3 mL via nebulizer every 2 hours a s needed for wheezing/shortn ess of breath. Use over 5-15minute s. 90 mL 2 Active Comment on above: Use 3 mL via nebulizer every 2 hours as needed for Wheezing/Shortness of Breath . Use over 5-15minutes. apixaban 5 mg oral tablet Factor Xa Start: 10-04-2020 take 1 tab let apixaban (ELIQUIS) 5 (20 sources) Inhibitor End: 01-03-2023 by mouth twice mg tab(s) daily Indications: Ac [place] pulmonary embol ism without acute c or pulmonale, unspecified pulmonary embol ism type (HCC) Take 1 tablet by mouth twice daily. 18 0 tablet 3 2022 Active Comment on above: Take 1 tablet by mouth twice daily. aspirin 81 mg delayed release oral tablet Platelet Aggregati on Start: 02-04-2019 take 1 aspirin, enteric (3 sources) Inhibitor, Nonsteroidal End: 01-25-2022 tablet by c oated (ASPIRIN, Anti-inflammatory Drug mouth once ENTER IC COATED) 81 daily mg EC tablet Indications: Ischemia of hea rt, chronic Take 1 tablet by mouth once daily. 30 tablet 5 02/04/2019 01/25/2022 Discontinued (Course of ther apy completed) Comment on above: Take 1 tablet by mouth once daily. Blood-Glucose Meter monitoring kit Start: 07-16-2018 Blood-Glucose Meter monitoring (3 sources) End: 01-25-2022 kit Glucose Meter of Choice - Kit - Dx: Other DM Code E11.42 1 Each 0 201701/25/2022 Discontinued Comment on above: Glucose Meter of Choice - Ki t - Dx: Other DM Code E11.42 cholecalciferol 1.25 mg oral capsule Vitamin D Start: 12-17-2021 take 1 capsule cholecalciferol, (20 sources) End: 03-17-2022 by mouth every Vitamin D3 , (VITAMIN week D3) 1,250 mcg ( 50,000 unit) cap capsu le Indications: Vi tamin D deficiency Take 1 capsule by mout h one time a week. Fo r 12 weeks 4 capsule 2 12/17/2021 Acti ve Comment on above: Take 1 capsule by mouth one time a week. For 12 weeks clindamycin 300 mg oral capsule Lincosamide Start: 02-18-2023 take 1 clindamycin (1 source) Antibacterial End: 02-20-2023 capsule by (CLEOCIN) 3 00 mg mouth four capsule times daily Indications: Abscess of groi n, left , Non-heal ing open wound of l eft groin, initial encounter Take 1 capsule by mout h four times naya y. 40 capsule 0 02/18/2023 02/20/2023 Discontinued Comment on above: Take 1 capsule by mouth four times daily. COMPOUNDED PRESCRIPTION Start: 03-05-2018 COMPOUNDED PRESCRIPTION Indications: (20 sources) LOGAN (obstructiv e sleep apnea) Wedge pillow to be us ed nightly to elevate head for LOGAN Dx : LOGAN 1 Device 1 03/05/2018 Susp ended Start: 03-05-2018 COMPOUNDED PRESCRIPT ION Indications: LOGAN (obstructive sleep apnea) Wedge pillow to be used nightly to elevate head for LOGAN Dx: LOGAN 1 Device 1 0 03/05/2018 Active COMPOUNDED PRESCRIPT ION Diclo CVLP: Diclofenac 2%, Colchicine End: 01-16-2023 0.01%, Verapamil 5%, Lidocaine 2%, Prilocaine 2% SIG: Apply 1-2 pumps to area of ema n BID - QID PRN, massaging in well. Repeat after 10 min. 0 01/01 Discontinued COMPOUNDED PRESCRIPT ION Serum Gabaketo LP:Gabapentin 10%, End: 01-16-2023 Ketoprofen 10%, Lido mike 2%, Prilocaine 2% SIG: Apply 2-5 drops to area of pain 2-4 times daily PRN, massaging in well. Repeat after 10 min. 0 01/01 Discontinued COMPOUNDED PRESCRIPT ION Diclo CVLP: Diclofenac 2%, Colchicine 0.01%, Verapamil 5%, Lidocaine 2%, Prilocaine 2% SIG: Apply 1-2 pumps to area of ema n BID - QID PRN, massaging in well. Repeat after 10 min. 0 Susp ended COMPOUNDED PRESCRIPT ION Serum Gabaketo LP:Gabapentin 10%, Ketoprofen 10%, Lido mike 2%, Prilocaine 2% SIG: Apply 2-5 drops to area of pain 2-4 times daily PRN, massaging in well. Repeat after 10 min. 0 Susp ended COMPOUNDED PRESCRIPT ION Diclo CVLP: Diclofenac 2%, Colchicine 0.01%, Verapamil 5%, Lidocaine 2%, Prilocaine 2% SIG: Apply 1-2 pumps to area of ema n BID - QID PRN, massaging in well. Repeat after 10 min. 0 Acti ve COMPOUNDED PRESCRIPT ION Serum Gabaketo LP:Gabapentin 10%, Ketoprofen 10%, Lido mike 2%, Prilocaine 2% SIG: Apply 2-5 drops to area of pain 2-4 times daily PRN, massaging in well. Repeat after 10 min. 0 Acti ve Comment on above: Wedge pillow to be used nigh tly to elevate head for LOGAN Dx: LOGAN Diclo CVLP: Diclofenac 2%, C olchicine 0.01%, Verapamil 5%, Lidocaine 2%, Prilocaine 2% SIG: Apply 1-2 pumps to area of pain BID - QID PRN, massaging in well. Repeat after 10 min. Serum Gabaketo LP:Gabapentin 10%, Ketoprofen 10%, Lidocaine 2%, Prilocaine 2% SIG: Apply 2-5 drops to area of pain 2-4 times daily PRN, massaging in well. Repeat after 10 min. Compression Knee Highs Start: 07-29-2018 Compression Knee Highs Indications: (20 sources) Bilateral lower extremity edema KNEE HIGH COMPRESSIO N STOCKINGS 20-30 MM. DX: EDEMA, lymp hedema, venous insufficiency 1 Device 1 07/29/2018 Suspended Start: 07-29-2018 Compression Knee Hig hs Indications: Bilateral lower extremity edema KNEE HIGH COMP RESSION STOCKINGS 20-30 MM. DX: EDEMA, lymphedema, venous i nsufficiency 1 Device 1 07/29/2018 Active Comment on above: KNEE HIGH COMPRESSION STOCKI NGS 20-30 MM. DX: EDEMA, lymphedema, venous insufficiency empagliflozin 10 mg oral tablet Sodium-Glucose Start: take 1 tablet empagliflozin (20 sources) Cotransporter 2 08-01-2022 by mouth once (JARDIANCE) 10 mg Inhibitor daily at tablet Take 1 breakfast tablet by mouth daily with breakfast. 30 tablet 5 08/01/2022 Suspended Comment on above: Take 1 tablet by mouth daily with breakfast. famotidine 20 mg oral tablet Histamine-2 Start: 02-14-2021 take 1 tablet famotidine (PEPCID) (20 sources) Receptor End: 07-09-2022 by mouth at 20 mg tablet Antagonist bedtime as Indications: GE RD needed without esophag itis Take 1 tablet b y mouth at bedtim e as needed. 30 tabl et 5 07/09/2022 Acti ve Comment on above: Take 1 tablet by mouth at be dtime as needed. fluconazole 150 mg oral tablet Azole Antifungal Start: 01-25-2022 fluconazole (DIFLUCAN) (1 source) End: 01-25-2022 150 mg table t Indications: Va ginal rasta Take 1 tablet by mouth one time only for 1 dose. Repeat in 3 days if needed. 2 ta blet 0 01/25/20222 03/2022 Comment on above: Take 1 tablet by mouth one t kamaljit only for 1 dose. Repeat in 3 days if needed. FLUoxetine 20 mg oral capsule Serotonin Start: 02-14-2021 take 1 capsule FLUoxetine (PROZAC) (3 sources) Reuptake End: 01-25-2022 by mouth once 20 mg capsu le Inhibitor daily Indications: Anxiety with depression Take 1 capsule by mout h once daily. 30 capsule 2 02/14/2021 01/25/2022 Discontinued (S olena Effects) Comment on above: Take 1 capsule by mouth once daily. furosemide 20 mg oral tablet Loop Diuretic Start: 10-18-2022 take 1 tablet furosemide (LASIX) (20 sources) End: 12-12-2022 by mouth twice 20 mg tabl et daily Indications: Ac [place] diastolic CHF (congestive hea rt failure) ([facility]) , Bilateral lower extremity edema Take 1 tablet by rosalee th twice daily. Ta ke BID with 80 mg lasix to equal 100 mg BID 60 tablet 2 12/12/2022 Acti ve Start: 03-29-2022 furosemide (LASIX) 4 0 mg tablet Indications: Chronic diastolic End: 07-09-2022 heart failure ([facility]) Take 1-2 tablets BID for lower extremity edema 120 tablet 5 0 07/09/2022 Active Start: 12-12-2021 furosemide (LASIX) 4 0 mg tablet Indications: Chronic diastolic End: 01-14-2022 heart failure ([facility]) Take 1-2 tablets BID for lower extremity edema 120 tablet 2 0 01/14/2022 Active Comment on above: Take 1-2 tablets BID for low er extremity edema Take 1 tablet by mouth twice daily. Take 1 tablet by mouth twice daily. Take BID with 80 mg lasix to equal 100 mg BID gabapentin 800 mg oral tablet Anti-epileptic Agent Start: 2 take 1 gabapentin (20 sources) End: 01-29-2023 tablet by (NEURONTIN) 800 mg mouth three tablet Indicati ons: times daily Type 2 diabetes mellitus with diabetic polyneuropathy, with long-term curre nt use of insulin ([facility] ) TAKE 1 TABLET BY ROSALEE TH THREE TIMES A D AY 90 tablet 2 2022 Active Start: 12-12-2021 gabapentin (NEURONTI N) 300 mg capsule 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, with long-term current use of insul in ([facility]) Take three tablets in the AM, One tablet in the aftern oon and three tablets in the evening 0 01/25/2022 2 Discontinued (Changing Therapy/Dosage Form) Comment on above: Take 3 capsules by mouth twi ce daily for 90 days. Take 1 tablet by mouth three times daily for 30 days. Take three tablets in the AM , One tablet in the afternoon and three tablets in the evening TAKE 1 TABLET BY MOUTH THREE TIMES A DAY hydroCHLOROthiazide 12.5 mg oral tablet Thiazide Start: take 1 hydroCHLOROthiazide (1 source) Diuretic End: 01-23-2022 tablet by (HYDRODIURIL , ESIDRIX) mouth once 12.5 mg tablet daily Indications: Es sential hypertension Ta ke 1 tablet by mouth once daily. 90 table t 1 12/12/202101/02 Discontinued (Discontinued b y another Health Care Provider) Comment on above: Take 1 tablet by mouth once daily. 3 ml insulin aspart, human 100 unt/ml pen injector Insulin A nalog Start: 11-06-2021 insulin aspart U-100 (4 sources) End: 03-05-2022 (NOVOLOG FLE XPEN U-100 INSULIN) 100 un it/mL (3 mL) Inject 48 u nits plus sliding scale t hree times daily before me als (Sliding scale: 2 units for every 50 po ints >150; TDD 150 units) 15 Pen 11 01/25/2022 04/0 03/2022 Discontinued Start: 05-23-2021 insulin aspart U-100 (NOVOLOG FLEXPEN U-100 INSULIN) 100 unit/mL End: 09-06-2021 (3 mL) Inject 32 Uni ts subcutaneously three times daily before meals. 10 Pen 5 05/0209/06/2021 Discontinued (Adjust Sig - Block E-Cancel) Comment on above: Inject 42 units plus sliding scale three times daily before meals (Sliding scale: 2 units for every 50 points >150; TDD 150 units) Inject 48 units plus sliding scale three times daily before meals (Sliding scale: 2 units for every 50 points >150; TDD 150 units) Inject 32 Units subcutaneous ly three times daily before meals. 3 ml insulin degludec 200 unt/ml pen injector Insulin Analog Start: 03-28-2022 insulin degludec (TRESIBA (9 sources) End: 03-29-2022 FLEXTOUCH U- 200) 200 unit/mL (3 mL) injection Inject 110 Unit s subcutaneously twice daily. 11 Pen 5 202103/29/2022 Disc ontinued Start: 09-06-2021 insulin degludec (TR ESIBA FLEXTOUCH U-200) 200 unit/mL (3 mL) End: 03-28-2022 injection Inject 100 Units subcutaneously twice daily. This replaces Levemir. 10 Pen 5 02/28/2022 03/28/2022 Discontinued Comment on above: Inject 100 Units subcutaneou sly twice daily. This replaces Levemir. Inject 110 Units subcutaneou sly twice daily. 3 ml insulin glargine 300 unt/ml pen injector Insulin Analog Start: 10-30-2022 insulin glargine U-300 conc (20 sources) (TOUJEO MAX U-3 00 SOLOSTAR) 300 unit/mL (3 mL) inpn Inject 105 Unit s subcutaneously twice daily. 21 mL 5 022 Active Start: 07-09-2022 insulin glargine U-3 00 conc (TOUJEO MAX U-300 SOLOSTAR) 300 End: 10-30-2022 unit/mL (3 mL) inpn Inject 92 Units subcutaneously twice daily. 18 mL 5 07/09/2022 1 12/30/2021 Discontinued Start: 03-29-2022 insulin glargine U-3 00 conc (TOUJEO MAX U-300 SOLOSTAR) 300 End: 07-09-2022 unit/mL (3 mL) inpn Inject 88 Units subcutaneously twice daily. 18 mL 5 03/29/2022 0 07/09/2022 Discontinued Comment on above: Inject 88 Units subcutaneous ly twice daily. Inject 92 Units subcutaneous ly twice daily. Inject 105 Units subcutaneou sly twice daily. 3 ml insulin lispro 100 unt/ml pen injector Insulin Analog Start: 0 03-05-2022 insulin lispro (HUMALOG (20 sources) End: 10-30-2022 KWIKPEN INSU FAIZAN) 100 unit/mL Inject 50 units plus sliding sc fauzia three times daily bef ore meals (Sliding scale: 2 units for every 50 po ints >150; TDD 150 units) 15 Each 5 10/30/2022 Acti ve Comment on above: Inject 48 units plus sliding scale three times daily before meals (Sliding scale: 2 units for every 50 points >150; TDD 150 units) Inject 50 units plus sliding scale three times daily before meals (Sliding scale: 2 units for every 50 points >150; TDD 150 units) loratadine 10 mg oral tablet Start: 10-15-2021 take 1 tablet by loratadine (CLARITIN) (20 sources) End: 01-03-2023 mouth once daily 10 mg ta blet Take 1 tablet by mouth once daily. 90 table t 3 01/03/2023 Acti ve Start: 08-15-2020 take 1 tablet by mouth once loratadine ( CLARITIN) 10 mg tablet End: 08-29-2021 daily Take 1 tablet by rosalee th once daily. 90 tablet 3 08/15/20 20 08/29/2021 Discontinued Comment on above: Take 1 tablet by mouth once daily. multivitamin tablet take 1 tablet by mout h once multivitamin tablet Take 1 tablet (20 sources) daily by mouth once d aily. 0 Suspended take 1 tablet by mouth once daily multiv itamin tablet Take 1 tablet by mouth once daily. 0 Active Comment on above: Take 1 tablet by mouth once daily. omeprazole 40 mg delayed release oral capsule Proton Pump St art: 08-03-2021 take 1 capsule omeprazole (20 sources) Inhibitor End: 02-03-2023 by mouth once (PRILOSEC) 40 mg daily capsule Take 1 capsule by mout h once daily. 90 capsule 1 02/03/2023 Acti ve Comment on above: Take 1 capsule by mouth once daily. oxyCODONE hydrochloride 5 mg oral tablet Opioid Agonist Start: 02-20-2023 take 1 tablet oxyCODONE IR (16 sources) End: 02-23-2023 by mouth (ROXICODONE) 5 mg every six immediate relea se hours as tablet Indicati ons: needed for Cellulitis of pain perineum Take 1 tablet by mouth every 6 hours a s needed for pain for up to 3 days. 8 tablet 0 202202/23/2023 Expi red Start: 01-20-2023 take 1 tablet by mouth every oxyCODONE I R (ROXICODONE) 5 mg End: 01-25-2023 eight hours as needed for pain immediate release tablet Indications: Open wo unds involving multiple regions of lower extremity Take 1 tablet by rosalee th every 8 hours as needed for pain f or up to 5 days. 15 tablet 0 01/20/20 23 01/25/2023 Active Start: 01-16-2023 take 1 tablet by mouth every oxyCODONE I R (ROXICODONE) 5 mg End: 01-21-2023 six hours as needed immediate release ta blet Indications: Status post incision and drainage Take 1 tablet by mouth every 6 hours as nee ded for up to 5 days. 15 tablet 0 01/20/2023 Discontin ued Start: 01-06-2023 take 1 tablet by mouth once oxyCODONE IR (ROXICODONE) 5 mg End: 01-13-2023 daily as needed for pain immediate relea se tablet Indications: Necroti zing soft tissue infection Take 1 tab let by mouth as needed for pain (darinel ssing changes once daily) for up t o 7 days. 10 tablet 0 01/06/2023 01/13/2023 Suspended Start: 01-01-2023 take 1 tablet by mouth every oxyCODONE I R (ROXICODONE) 5 mg End: 01-06-2023 six hours as needed for pain immediate r elease tablet Indications: Necroti zing soft tissue infection Take 1 tab let by mouth every 6 hours as nee ded for pain for up to 5 days. 20 tab let 0 01/01/2023 01/06/2023 Discontin ued (Course of therapy completed) Comment on above: Take 1 tablet by mouth every 6 hours as needed for pain for up to 5 days. Take 1 tablet by mouth as ne eded for pain (dressing changes once daily) for up to 7 days. Take 1 tablet by mouth every 6 hours as needed for up to 5 days. Take 1 tablet by mouth every 8 hours as needed for pain for up to 5 days. Take 1 tablet by mouth every 6 hours as needed for pain for up to 3 days. OXYGEN, HOME THERAPY, Start: 02-23-2023 O XYGEN, HOME THERAPY, 3 L/min by Nasal (4 sources) Cannula route c ontinuous. 3 to 4L 0 02/23/2023 Acti ve Start: 05-29-2021 OXYGEN, HOME THERAPY , Inhale 2 L/min as instructed as directed. End: 11-25-2021 4 Canister 5 021 11/25/2021 Comment on above: Inhale 2 L/min as instructed as directed. 3 L/min by Nasal Cannula rou te continuous. 3 to 4L potassium chloride 20 meq extended release oral tablet Start: 11-02-2021 take 1 tablet by potassium chloride 20 (20 sources) mouth twice daily mEq TbER T liban 1 tablet by mouth twice daily. 0 11/02/2021 Acti ve potassium chloride E R (K-DUR, KLOR-CON) 20 mEq tablet Take 20 mEq End: 01-25-2022 by mouth twice daily . 0 01/25/2022 Discontinued (Duplicate Entry) Comment on above: Take 1 tablet by mouth twice daily. Take 20 mEq by mouth twice d aily. predniSONE 10 mg oral tablet Start: 01-17-2022 predniSONE (DELTASONE) 10 mg (3 sources) End: 03-19-2022 tablet Take 4 tabs for 3 days, take 3 tabs for 3 days, take 2 tabs for 3 days , and take 1 tab for 3 days 0 03/19/2022 Disc ontinued (Course of therapy comp leted) Comment on above: Take 4 tabs for 3 days, take 3 tabs for 3 days, take 2 tabs for 3 days, and take 1 tab for 3 days semaglutide (OZEMPIC) 1 mg/dose (4 mg/3 mL) pen Start: 12-13-2022 inject 1 mg by semaglutide (OZEMPIC) 1 (20 sources) subcutaneous mg/dose (4 mg/3 mL) pen injection every week Inject 1 mg subcutaneously one time a week. This RE PLACES Trulicity. 3 mL 5 12/13/2022 Susp ended Start: 12-13-2022 inject 1 mg by subcutaneous semaglutide (OZEMPIC) 1 mg/dose (4 injection every week mg/3 mL) pen Inject 1 mg subcutaneously one t kamaljit a week. This REPLACES Trulic ity. 3 mL 5 12/13/2022 Active Comment on above: Inject 1 mg subcutaneously o ne time a week. This REPLACES Trulicity. traMADol hydrochloride 50 mg oral tablet Opioid Agonist Start: 01-01 traMADol (ULTRAM) 50 mg (3 sources) End: 03-19-2022 tablet PRN f or pain 0 01/17/202203/01 Discontinued (C ourse of therapy complet ed) Comment on above: PRN for pain varenicline 1 mg oral tablet Partial Start: 02-14-2021 take 1 tablet varenicline (1 source) Cholinergic End: 09-25-2021 by mouth (CHANTIX CON TINUING Nicotinic Agonist twice daily MONTH BOX) 1 mg tablet Indicati ons: Tobacco use Bi e 1 tablet by mouth twice daily. 60 tablet 2 202009/25/2021 Discontinued (Adjust Sig - B lock E-Cancel) Comment on above: Take 1 tablet by mouth twice daily. WALKER ROLLATOR SEAT WITH 6 WHEELS - RED Start: 01-23 WALKER ROLLATOR SEAT WITH 6 (20 sources) WHEELS - RED In dications: SOB (shortness of b reath) , Oxygen dependent Patie nt requires large seat 1 Each 0 0 01/23/2022 Suspended Start: 01-23-2022 WALKER ROLLATOR SEAT WITH 6 WHEELS - RED Indications: SOB (shortness of breath ) , Oxygen dependent Patient requires large seat 1 Each 0 2021 Active Comment on above: Patient requires large seat Problems Active Problems Problem Problem Date Documented Date Episodic/Chr onic Classification Anxiety disorders Anxiety; Translations: 02-12-2017 Chronic (20 sources) [Anxiety disorder, unspecified] Asthma Reactive airway Chronic (1 source) disease; Translations: [Unspecified asthma with (acute) exacerbation] Cardiac dysrhythmias Tachycardia; Episodi c (2 sources) Translations: [Tachycardia, unspecified] Chronic obstructive pulmonary disease and bronchiectasis Acute e xacerbation of Chronic (1 source) chronic obstructive airways disease; Translations: [Chronic obstructive pulmonary disease with (acute) exacerbation] Congestive heart failure; nonhypertensive Chronic diastolic Onset: Chronic (9 sources) heart failure; 07-09-2022 Translations: [Chronic diastolic (congestive) heart failure] Coronary atherosclerosis and other heart disease Chronic ischemic h eart Chronic (2 sources) disease; Translations: [Chronic ischemic heart disease, unspecified] Deficiency and other anemia Chronic anemia; Onset: 12-25-2022 Episodic (20 sources) Translations: [Anemia, 12-25-2022 unspecified] Deficiency and other anemia Anemia, unspecified; Onset: Episodic (1 source) Translations: [Chronic 12-25-2022 anemia] Diabetes mellitus with complications Neuropathy due to Onset: 04-03-2017 Chronic (20 sources) diabetes mellitus; 12-25-2022 Translations: [Type 2 diabetes mellitus with diabetic neuropathy, unspecified] Disorders of lipid metabolism Hyperlipidemia; Onset: 04-03-20 Chronic (20 sources) Translations: 04-03-2017 [Hyperlipidemia, unspecified] Esophageal disorders Gastroesophageal 02-12-2017 Chr onic (20 sources) reflux disease; Translations: [Gastro-esophageal reflux disease without esophagitis] Essential hypertension Essential Onset: 12-22-2017 Chron ic (20 sources) hypertension; 12-22-2017 Translations: [Essential (primary) hypertension] Fluid and electrolyte disorders Dehydration; Onset: Episodic (20 sources) Translations: 12-25-2022 [Dehydration] Mycoses Candidiasis of vagina; Episo dic (2 sources) Translations: [Candidiasis of vulva and vagina] Neoplasms of unspecified nature or uncertain behavior Monocl onal gammopathy Onset: 12-24-2018 Chronic (20 sources) of uncertain 12-24-2018 significance; Translations: [Monoclonal gammopathy] Open wounds of extremities Open wounds involving Episodic (1 source) multiple regions of lower limb(s); Translations: [Unspecified open wound, unspecified lower leg, initial encounter] Open wounds of head; neck; and trunk Open wound of inguinal Onset: 02-20-2023 Episodic (14 sources) region; Translations: 02-18-2023 [Unspecified open wound of abdominal wall, unspecified quadrant without penetration into peritoneal cavity, initial encounter] 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) Onset: Episo dic (2 sources) use of insulin; 12-25-2022 Translations: [Type 2 diabetes mellitus with diabetic polyneuropathy, with long-term current use of insulin (HCC)] Other circulatory disease Abnormal peripheral Episodic (1 source) pulse; Translations: [Other specified symptoms and signs involving the circulatory and respiratory systems] Other connective tissue disease Pain of toe of left Episodic (1 source) foot; Translations: [Pain in left toe(s)] Other connective tissue disease Pain of toe of right Episodic (1 source) foot; Translations: [Pain in right toe(s)] Other connective tissue disease Necrotizing soft Onset: 12-25 Episodic (20 sources) tissue infection; 12-25-2022 Translations: [Other specified soft tissue disorders] Other connective tissue disease Necrotizing fasciitis; Onset: 01-13-2023 Episodic (4 sources) Translations: 01-13-2023 [Necrotizing fasciitis] Other connective tissue disease Necrotizing fasciitis; Onset: Episodic (1 source) Translations: 12-25-2022 [Necrotizing fasciitis (HCC)] Other connective tissue disease Other specified soft Onset: Episodic (1 source) tissue disorders; 12-25-2022 Translations: [Necrotizing soft tissue infection] Other diseases of veins and lymphatics Peripheral venous Episodic (1 source) insufficiency; Translations: [Venous insufficiency (chronic) (peripheral)] Other endocrine disorders Adrenal incidentaloma; Onset: 08-09 Chronic (20 sources) Translations: [Other 07-01-2019 specified disorders of adrenal gland] Other injuries and conditions due to external causes Other injury o f Onset: Episodic (1 source) unspecified body 02-19-2023 region, initial encounter; Translations: [Wound infection] Other injuries and conditions due to external causes Traumat ic subcutaneous Onset: Episodic (1 source) emphysema, initial 02-19-2023 encounter; Translations: [Subcutaneous air, initial encounter (HCC)] Other lower respiratory disease Hypoxia; Translations: Episodic (1 source) [Hypoxemia] Other nervous system disorders Tremor; Translations: Episodic (2 sources) [Tremor, unspecified] Other nutritional; endocrine; and metabolic disorders Morbid obe sity; 02-12-2017 Chronic (20 sources) Translations: [Morbid (severe) obesity due to excess calories] Other nutritional; endocrine; and metabolic disorders Body m ass index 40+ - Onset: 11-20-2021 Chronic (20 sources) severely obese; 11-20-2021 Translations: [Morbid (severe) obesity due to excess calories] Other nutritional; endocrine; and metabolic disorders Morbid (sever e) Onset: Chronic (2 sources) obesity due to excess 12-25-2022 calories; Translations: [Morbid obesity (HCC)] Other screening for suspected conditions (not mental disorders or infectious disease) Patient encounter Episodic (2 sources) status; Translations: [Encounter for screening mammogram for malignant neoplasm of breast] Other skin disorders Keratosis; Episodi c (1 source) Translations: [Epidermal thickening, unspecified] Other upper respiratory infections Streptococcal sore Episodic (1 source) throat; Translations: [Streptococcal pharyngitis] Pneumonia (except that caused by tuberculosis or sexua lly transmitted disease) Bacterial pneumonia; Episodic (2 sources) Translations: [Unspecified bacterial pneumonia] Residual codes; unclassified Obstructive sleep Chronic (20 sources) apnea syndrome; Translations: [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 (adult) (pediatric)] Residual codes; unclassified Obstructive sleep Onset: Chronic (1 source) apnea (adult) 02-12-2017 (pediatric); Translations: [LOGAN (obstructive sleep apnea)] Residual codes; unclassified Insomnia; 04-03-2017 Episodic (20 sources) Translations: [Insomnia, unspecified] Residual codes; unclassified Bilateral lower limb Episodic (2 sources) edema; Translations: [Localized edema] Residual codes; unclassified Other specified Onset: Episodic (1 source) postprocedural states; 01-13-2023 Translations: [Status post incision and drainage] Respiratory failure; insufficiency; arrest (adult) Chronic hypoxemi c Onset: Chronic (2 sources) respiratory failure; 03-19-2022 Translations: [Chronic respiratory failure with hypoxia] Respiratory failure; insufficiency; arrest (adult) Acute respira tory Onset: 12-25-2022 Episodic (20 sources) failure; Translations: 12-25-2022 [Acute respiratory failure with hypoxia] Septicemia (except in labor) Sepsis; Translations: Onset: Episodic (20 sources) [Sepsis, unspecified 12-25-2022 organism] Skin and subcutaneous tissue infections Cellulitis; Onset: 0 02-20-2023 Episodic (17 sources) Translations: 01-12-2023 [Cellulitis, unspecified] Substance-related disorders Nicotine dependence; Onset: 12-27 Chronic (20 sources) Translations: 12-27-2022 [Nicotine dependence, unspecified, uncomplicated] Unclassified Respiratory acidosis; Onset: (1 source) Translations: 12-25-2022 [Respiratory acidosis] Unclassified ov Onset: (1 source) 07-09-2022 Past or Other Problems Problem Problem Date Documented Date Episodic/Chr onic Classification Acute and unspecified renal failure Acute injury of Onset: Episodic (2 sources) kidney; 11-11-2022 Translations: [Acute kidney failure, unspecified] Biliary tract disease Gallstone; Onset: 10-30-2007 Episod ic (20 sources) Translations: 10-30-2007 [Calculus of gallbladder without cholecystitis without obstruction] Conditions associated with dizziness or vertigo Lightheadedness; On set: Episodic (2 sources) Translations: 11-08-2022 [Dizziness and giddiness] Genitourinary symptoms and ill-defined conditions Microalbuminur ia; Onset: 04-03-2017 Episodic (20 sources) Translations: 03-19-2022 [Proteinuria, unspecified] Nonspecific chest pain Chest pain; Onset: Episo dic (3 sources) Translations: [Chest 10-18-2022 pain, unspecified] Other lower respiratory disease Other abnormalities Onset: Episodic (1 source) of breathing; 07-09-2022 Translations: [Decreased lung sounds] Other nervous system disorders Tremor, unspecified; Onset: Episodic (2 sources) Translations: 10-18-2022 [Tremor] Pulmonary heart disease Acute pulmonary Onset: 12-24-2018 E pisodic (20 sources) embolism; 12-24-2018 Translations: [Other pulmonary embolism without acute cor pulmonale] Residual codes; unclassified Localized edema; Onset: Episodic (1 source) Translations: 10-18-2022 [Bilateral lower extremity edema] Screening and history of mental health and substance a buse codes Tobacco use and Onset: 08-01-2021 Episodic (20 sources) exposure - finding; 08-01-2021 Translations: [Personal history of nicotine dependence] Results Test Name Value Interpretation Reference Range Facility CNPN on 02-25-2023 CNPN Normal [facility] CNPN on 02-24-2023 CNPN Normal [facility] CNCO on 02-21-2023 CNCO Letter Text Normal [facility] CNPN on 02-21-2023 CNPN Normal [facility] CNPTOUTREACH on 02-21-2023 CNPTOUTREACH Normal [facility] Basic metabolic 2000 panel on 3 Anion gap [Moles/Vol] 8 mmol/L Low - [facility] Comment on above: Order Comment: Specimen Type : BLOOD SPECIMENOrdering Facility: [facility] Address: [address] [place], [place] [id number] Performed By: #### [id number] # ###[facility] LABORATORYCLIA [id number] [place] [address] [place] Calcium [Mass/Vol] 8.9 mg/dL Normal 8.5-10.2 [facility] Comment on above: Order Comment: Specimen Type : BLOOD SPECIMENOrdering Facility: [facility] Address: [address] [place] [address] Performed By: #### [id number] # ###[facility]ORATORYCLIA [id number] [place] [address] [place] Chloride [Moles/Vol] 99 mmol/L Normal 97-105 [facility] Comment on above: Order Comment: Specimen Type : BLOOD SPECIMENOrdering Facility: [facility] Address: [address] [place] [address] Performed By: #### [id number] # ###[facility] LABORATORYCLIA [id number] [place] [address] [place] CO2 [Moles/Vol] 30 mmol/L Normal 22-30 [facility] Comment on above: Order Comment: Specimen Type : BLOOD SPECIMENOrdering Facility: [facility] Address: [address] [place] [address] Performed By: #### [id number] # ###[facility]ORATORYCLIA [id number] [place] [address] [place] Creatinine [Mass/Vol] 0.59 mg/dL Normal 0.58-0.96 [facility] Comment on above: Order Comment: Specimen Type : BLOOD SPECIMENOrdering Facility: [facility] Address: [address] [place] [address] Performed By: #### [id number] # ###[facility] LABORATORYCLIA [id number] [address] [place] ESTIMATED GLOMERULAR 113 mL/min/1.73m??? Normal >=60 [facility] FILTRATION RATE [place] Comment on above: Order Comment: Specimen Type : BLOOD SPECIMENOrdering Facility: [facility] Address: [address] [place] [address] Result Comment: Estimated Gl omerular Filtration Rate (eGFR) is calculated using the 2020 CK D-EPI creatinine equation. This equation utilizes serum crea tinine, sex, and age as parameters. The creatinine assay has traceab le calibration to isotope dilution-mass spectrometry. Refer to KDIGO guidelines for clinical interpretation. In patients with unstable renal function, e.g. those with acute kidney inju ry, the eGFR may not accurately reflect actual GFR. Performed By: #### [id number] # ###[facility]ITALCLIA [id number] [place] [address] [place] Glucose [Mass/Vol] 127 mg/dL High 74-99 [facility] Comment on above: Order Comment: Specimen Type : BLOOD SPECIMENOrdering Facility: [facility] Address: [address] [place] [id number] Result Comment: The [place] Diabetes Association (ADA) provides guidance for cutoff values f or fasting glucose and random glucose. The ADA defines fasting as n o caloric intake for at least 8 hours. Fasting plasma glucose resul ts between 100 to 125 mg/dL indicate increased risk for diabetes (prediabetes).Fasting plasma glucose results greater than or equa l to 126 mg/dL meet the criteria for diagnosis of diabetes. In th e absence of unequivocal hyperglycemia, results should be confirmed by repeat testing. In a patient with classic symptoms of hypergly cemia or hyperglycemic crisis, random plasma glucose results great er than or equal to 200 mg/dL meet the criteria for diagnosis of di abetes.Reference: Standards of Medical Care in Diabetes 2016, Ameri [facility] Diabetes Association. Diabetes Care. 2016.39(Suppl 1). Performed By: #### [id number] # ###[facility] LABORATORYIA [id number] [place] [address] [place] Potassium [Moles/Vol] 4.3 mmol/L Normal 3.7-5.1 [facility] Comment on above: Order Comment: Specimen Type : BLOOD SPECIMENOrdering Facility: [facility] Address: [address] [place] [address] Performed By: #### [id number] # ###[facility] LABORATORYCLIA [id number] [place] [address] [place] Sodium [Moles/Vol] 137 mmol/L Normal 136-144 [facility] Comment on above: Order Comment: Specimen Type : BLOOD SPECIMENOrdering Facility: [facility] Address: [address] [place] [address] Performed By: #### [id number] # ###[facility] LABORATORYCLIA [id number] [place] [address] [place] Urea nitrogen [Mass/Vol] 8 mg/dL Normal 7-21 [facility] Comment on above: Order Comment: Specimen Type : BLOOD SPECIMENOrdering Facility: [facility] Address: [address] [address] Performed By: #### [id number] # ###[facility] LABORATORYCLIA [id number] [place] [address] [facility] [place] CASE MANAGEM on 02-20-2023 CASE MANAGEM Normal [facility] CBC panel Auto (Bld) on 02-20-2023 Erythrocyte distribution width 16.0 % High 11.5-15.0 [facility] (RBC) [Ratio] Comment on above: Order Comment: Specimen Type : BLOOD SPECIMENOrdering Facility: [facility] Address: [address] [place] [address] Performed By: #### [id number] # ###[facility] LABORATORYCLIA [id number] [place] [address] [place] Hematocrit (Bld) [Volume fraction] 31.3 % Low 36.0-4 6.0 [facility] Comment on above: Order Comment: Specimen Type : BLOOD SPECIMENOrdering Facility: [facility] Address: [address] [place] [address] Performed By: #### [id number] # ###[facility] LABORATORYCLIA [id number] [address] [place] Hemoglobin (Bld) [Mass/Vol] 8.8 g/dL Low 11.5-15.5 [facility] Comment on above: Order Comment: Specimen Type : BLOOD SPECIMENOrdering Facility: [facility] Address: [address] [place] [address] Performed By: #### [id number] # ###[facility] LABORATORYCLIA [id number] [address] [facility] ([facility]BC) [Entitic mass] 25.8 pg Low 26.0-34.0 [facility] Comment on above: Order Comment: Specimen Type : BLOOD SPECIMENOrdering Facility: [facility] Address: [address] [address] Performed By: #### 86659-8 # ###[facility] LABORATORYCLIA [id number] [address] MCHC (RBC) [Mass/Vol] 28.1 g/dL Low 30.5-36.0 [facility] Comment on above: Order Comment: Specimen Type : BLOOD SPECIMENOrdering Facility: [facility] Address: [address] [address] Performed By: #### 75954-6 # ###[facility] LABORATORYCLIA [id number] [address] MCV (RBC) [Entitic vol] 91.8 fL Normal 80.0-100.0 [facility] Comment on above: Order Comment: Specimen Type : BLOOD SPECIMENOrdering Facility: [facility] Address: [address] [address] Performed By: #### 08655-3 # ###[facility] LABORATORYCLIA [id number] [address] Nucleated RBC (Bld) [#/Vol] 0.02 10*3/uL High <0.01 [facility] Comment on above: Order Comment: Specimen Type : BLOOD SPECIMENOrdering Facility: [facility] Address: [address] [address] Performed By: #### 84681-8 # ###[facility] LABORATORYCLIA [id number] [place] [address] [place] Platelet mean volume (Bld) 9.8 fL Normal 9.0-12.7 [facility] [Entitic vol] Comment on above: Order Comment: Specimen Type : BLOOD SPECIMENOrdering Facility: [facility] Address: [address] [address] Performed By: #### 75606-5 # ###[facility] LABORATORYCLIA [id number] [facility] [place], [facility]307 [place] Platelets (Bld) [#/Vol] 264 10*3/uL Normal 150-400 [facility] Comment on above: Order Comment: Specimen Type : BLOOD SPECIMENOrdering Facility: [facility] Address: [address] [address] Performed By: #### 44477-4 # ###[facility] LABORATORYCLIA [id number] [facility] [place], [place] [address] [place] RBC (Bld) [#/Vol] 3.41 10*6/uL Low 3.90-5.20 [facility] Comment on above: Order Comment: Specimen Type : BLOOD SPECIMENOrdering Facility: [facility] Address: [address] [address] Performed By: #### 02072-8 # ###[facility] LABORATORYCLIA [id number] [facility] [place], [facility]307 [place] WBC (Bld) [#/Vol] 9.61 10*3/uL Normal 3.70-11.00 [facility] Comment on above: Order Comment: Specimen Type : BLOOD SPECIMENOrdering Facility: [facility] Address: [address] [address] Performed By: #### 94905-4 # ###[facility] LABORATORYCLIA [id number] [facility], [facility]307 [place] CNDS on 02-20-2023 CNDS Normal [facility] CNPN on 02-20-2023 CNPN Normal [facility] CONSULT PROG on 02-20-2023 CONSULT PROG Normal [facility] CONSULT PROG Normal [facility] CONSULT PROG Normal [facility] aPTT PPP on 02-20-2023 aPTT Coag (PPP) [Time] 45.5 s High 23.0-32.4 [facility] Comment on above: Order Comment: Specimen Type : BLOOD SPECIMENOrdering Facility: [facility] Address: [address] [place] [address] Performed By: #### 76908-2 # ###[facility] LABORATORYCLIA [id number] [address] [place] aPTT Coag (PPP) [Time] 39.7 s High 23.0-32.4 [facility] Comment on above: Order Comment: Specimen Type : BLOOD SPECIMENOrdering Facility: [facility] Address: [address] [place] [address] Performed By: #### 43877-2 # ###[facility] LABORATORYCLIA [id number] [facility], [place] [address] [place] ALLIED HEALTH on 02-19-2023 ALLIED HEALTH Normal [facility] Basic metabolic 2000 panel on 3 Anion gap [Moles/Vol] 7 mmol/L Low 9-18 [facility] Comment on above: Order Comment: Specimen Type : BLOOD SPECIMENOrdering Facility: [facility] Address: [address] [place] [address] Performed By: #### 49418-4 # ###[facility] LABORATORYCLIA [id number] [facility], [place] [place] [address] [place] Calcium [Mass/Vol] 8.9 mg/dL Normal 8.5-10.2 [facility] Comment on above: Order Comment: Specimen Type : BLOOD SPECIMENOrdering Facility: [facility] Address: [address] [place] [address] Performed By: #### 96679-6 # ###[facility] LABORATORYCLIA [id number] [facility], [place] [place] [address] [place] Chloride [Moles/Vol] 103 mmol/L Normal 97-105 [facility] Comment on above: Order Comment: Specimen Type : BLOOD SPECIMENOrdering Facility: [facility] Address: [address] [address] Performed By: #### 35110-7 # ###[facility]ITALCLIA [id number] [address] [place] CO2 [Moles/Vol] 30 mmol/L Normal 22-30 [facility] Comment on above: Order Comment: Specimen Type : BLOOD SPECIMENOrdering Facility: [facility] Address: [address] [address] Performed By: #### 59980-8 # ###[facility]PITALIA [id number] [address] [place] Creatinine [Mass/Vol] 0.65 mg/dL Normal 0.58-0.96 [facility] Comment on above: Order Comment: Specimen Type : BLOOD SPECIMENOrdering Facility: [facility] Address: [address] [address] Performed By: #### 82825-7 # ###[facility] HOSPITALIA [id number] [address] ESTIMATED GLOMERULAR 111 mL/min/1.73m??? Normal >=60 [facility] Comment on above: Order Comment: Specimen Type : BLOOD SPECIMENOrdering Facility: [facility] Address: [address] [place] [address] Result Comment: Estimated Gl omerular Filtration Rate (eGFR) is calculated using the 2020 D-EPI creatinine equation. This equation utilizes serum crea tinine, sex, and age as parameters. The creatinine assay has traceab le calibration to isotope dilution-mass spectrometry. Refer to KDIGO guidelines for clinical interpretation. In patients with unstable renal function, e.g. those with acute kidney inju ry, the eGFR may not accurately reflect actual GFR. Performed By: #### 23535-2 # ###[facility] LABORATORYCLIA [id number] [address] [place] Glucose [Mass/Vol] 154 mg/dL High 74-99 [facility] Comment on above: Order Comment: Specimen Type : BLOOD SPECIMENOrdering Facility: [facility] Address: [address] [place] [address] Result Comment: The [place] Diabetes Association (ADA) provides guidance for cutoff values f or fasting glucose and random glucose. The ADA defines fasting as n o caloric intake for at least 8 hours. Fasting plasma glucose resul ts between 100 to 125 mg/dL indicate increased risk for diabetes (prediabetes).Fasting plasma glucose results greater than or equa l to 126 mg/dL meet the criteria for diagnosis of diabetes. In th e absence of unequivocal hyperglycemia, results should be confirmed by repeat testing. In a patient with classic symptoms of hypergly cemia or hyperglycemic crisis, random plasma glucose results great er than or equal to 200 mg/dL meet the criteria for diagnosis of di abetes.Reference: Standards of Medical Care in Diabetes 2016, [facility] Diabetes Association. Diabetes Care. 2016.39(Suppl 1). Performed By: #### 69002-9 # ###[facility] LABORATORYCLIA [id number] [place] [address] [place] Potassium [Moles/Vol] 4.5 mmol/L Normal 3.7-5.1 [facility] Comment on above: Order Comment: Specimen Type : BLOOD SPECIMENOrdering Facility: [facility] Address: [address] [address] Performed By: #### 67091-2 # ###[facility] LABORATORYCLIA [id number] [place] [address] [place] Sodium [Moles/Vol] 140 mmol/L Normal 136-144 [facility] Comment on above: Order Comment: Specimen Type : BLOOD SPECIMENOrdering Facility: [facility] Address: [address] [address] Performed By: #### 82171-7 # ###[facility] LABORATORYCLIA [id number] [place] [address] [place] Urea nitrogen [Mass/Vol] 11 mg/dL Normal 7-21 [facility] Comment on above: Order Comment: Specimen Type : BLOOD SPECIMENOrdering Facility: [facility] Address: [address] [address] Performed By: #### 27980-0 # ###[facility] LABORATORYCLIA [id number] [address] [place] CASE MGT INIT ASSES on 02-19-2023 CASE MGT INIT ASSES Normal [facility] CBC panel Auto (Bld) on 02-19-2023 Erythrocyte distribution width 16.4 % High 11.5-15.0 [facility] (RBC) [Ratio] Comment on above: Order Comment: Specimen Type : BLOOD SPECIMENOrdering Facility: [facility] Address: [address] [place] [address] Performed By: #### 36542-5 # ###[facility] LABORATORYCLIA [id number] [address] [place] Hematocrit (Bld) [Volume fraction] 32.1 % Low 36.0-4 6.0 [facility] Comment on above: Order Comment: Specimen Type : BLOOD SPECIMENOrdering Facility: [facility] Address: [address] [place] [address] Performed By: #### 07973-9 # ###[facility] LABORATORYCLIA [id number] [address] [place] Hemoglobin (Bld) [Mass/Vol] 9.3 g/dL Low 11.5-15.5 [facility] Comment on above: Order Comment: Specimen Type : BLOOD SPECIMENOrdering Facility: [facility] Address: [address] [address] Performed By: #### 92266-1 # ###[facility] LABORATORYCLIA [id number] [address] [place] MCH (RBC) [Entitic mass] 26.6 pg Normal 26.0-34.0 [facility] Comment on above: Order Comment: Specimen Type : BLOOD SPECIMENOrdering Facility: [facility] Address: [address] [place] [address] Performed By: #### 34409-3 # ###[facility] LABORATORYCLIA [id number] [facility], [address] STATES [facility] MCHC (RBC) [Mass/Vol] 29.0 g/dL Low 30.5-36.0 [facility] Comment on above: Order Comment: Specimen Type : BLOOD SPECIMENOrdering Facility: [facility] Address: [address] [place] [address] Performed By: #### 12804-7 # ###[facility] LABORATORYCLIA [id number] [facility], [address] [place] MCV (RBC) [Entitic vol] 92.0 fL Normal 80.0-100.0 [facility] Comment on above: Order Comment: Specimen Type : BLOOD SPECIMENOrdering Facility: [facility] Address: [address] [place] [address] Performed By: #### 83475-9 # ###[facility] LABORATORYCLIA [id number] [address] Nucleated RBC (Bld) [#/Vol] 10*3/uL Normal <0.01 [facility] Comment on above: Order Comment: Specimen Type : BLOOD SPECIMENOrdering Facility: [facility] Address: [address] [place] [address] Performed By: #### 78669-1 # ###[facility] LABORATORYCLIA [id number] [address] STATES [facility] Platelet mean volume (Bld) 9.8 fL Normal 9.0-12.7 [facility] [Entitic vol] Comment on above: Order Comment: Specimen Type : BLOOD SPECIMENOrdering Facility: [facility] Address: [address] [place] [address] Performed By: #### 79151-9 # ###[facility] LABORATORYCLIA [id number] [facility], [address] [place] Platelets (Bld) [#/Vol] 282 10*3/uL Normal 150-400 [facility] Comment on above: Order Comment: Specimen Type : BLOOD SPECIMENOrdering Facility: [facility] Address: [address] [address] Performed By: #### 67043-8 # ###[facility] LABORATORYCLIA [id number] [place] [address] [place] RBC (Bld) [#/Vol] 3.49 10*6/uL Low 3.90-5.20 [facility] Comment on above: Order Comment: Specimen Type : BLOOD SPECIMENOrdering Facility: [facility] Address: [address] [address] Performed By: #### 10983-2 # ###[facility] LABORATORYCLIA [id number] [place] [address] [place] WBC (Bld) [#/Vol] 11.20 10*3/uL High 3.70-11.00 [facility] Comment on above: Order Comment: Specimen Type : BLOOD SPECIMENOrdering Facility: [facility] Address: [address] [address] Performed By: #### 36058-0 # ###[facility] LABORATORYCLIA [id number] [address] [place] Erythrocyte distribution width 16.4 % High 11.5-15.0 [facility] (RBC) [Ratio] Comment on above: Order Comment: Specimen Type : BLOOD SPECIMENOrdering Facility: [facility] Address: [address] [address] Performed By: #### 59808-2 # ###[facility] LABORATORYCLIA [id number] [address] Hematocrit (Bld) [Volume fraction] 33.4 % Low 36.0-4 6.0 [facility] Comment on above: Order Comment: Specimen Type : BLOOD SPECIMENOrdering Facility: [facility] Address: [address] [address] Performed By: #### 25438-8 # ###[facility] LABORATORYCLIA [id number] [facility], [address] [place] Hemoglobin (Bld) [Mass/Vol] 9.3 g/dL Low 11.5-15.5 [facility] Comment on above: Order Comment: Specimen Type : BLOOD SPECIMENOrdering Facility: [facility] Address: [address] [place] [address] Performed By: #### 72986-9 # ###[facility] LABORATORYCLIA [id number] [address] OF [facility] MCH (RBC) [Entitic mass] 25.9 pg Low 26.0-34.0 [facility] Comment on above: Order Comment: Specimen Type : BLOOD SPECIMENOrdering Facility: [facility] Address: [address] [place] [address] Performed By: #### 74746-7 # ###[facility] LABORATORYCLIA [id number] [address] OF [facility] MCHC (RBC) [Mass/Vol] 27.8 g/dL Low 30.5-36.0 [facility] Comment on above: Order Comment: Specimen Type : BLOOD SPECIMENOrdering Facility: [facility] Address: [address] [place] [address] Performed By: #### 92902-0 # ###[facility] LABORATORYCLIA [id number] [address] [place] MCV (RBC) [Entitic vol] 93.0 fL Normal 80.0-100.0 [facility] Comment on above: Order Comment: Specimen Type : BLOOD SPECIMENOrdering Facility: [facility] Address: [address] [place] [address] Performed By: #### 79675-9 # ###[facility] LABORATORYCLIA [id number] [address] OF [facility] Nucleated RBC (Bld) [#/Vol] 10*3/uL Normal <0.01 [facility] Comment on above: Order Comment: Specimen Type : BLOOD SPECIMENOrdering Facility: [facility] Address: [address] [address] Performed By: #### 45133-7 # ###[facility]ORATORYCLIA [id number] [place] [address] [facility] OF [place] Platelet mean volume (Bld) 9.8 fL Normal 9.0-12.7 [facility] [Entitic vol] Comment on above: Order Comment: Specimen Type : BLOOD SPECIMENOrdering Facility: [facility] Address: [address] Performed By: #### 24421-9 # ###[facility] LABORATORYCLIA [id number] [place] [address] [place] Platelets (Bld) [#/Vol] 292 10*3/uL Normal 150-400 [facility] Comment on above: Order Comment: Specimen Type : BLOOD SPECIMENOrdering Facility: [facility] Address: [address] Performed By: #### 54133-8 # ###[facility]ORATORYCLIA [id number] [place] [address] [place] RBC (Bld) [#/Vol] 3.59 10*6/uL Low 3.90-5.20 [facility] Comment on above: Order Comment: Specimen Type : BLOOD SPECIMENOrdering Facility: [facility] Address: [address] Performed By: #### 15327-0 # ###[facility]ORATORYCLIA [id number] [address] [place] [id number] [place] [address] [place] WBC (Bld) [#/Vol] 11.49 10*3/uL High 3.70-11.00 [facility] Comment on above: Order Comment: Specimen Type : BLOOD SPECIMENOrdering Facility: [facility] Address: [address] [address] Performed By: #### 39316-4 # ###[facility] LABORATORYCLIA [id number] [place] [address] [place] CNPN on 02-19-2023 CNPN Normal [facility] CONSULT on 02-19-2023 CONSULT Normal [facility] CONSULT PROG on 02-19-2023 CONSULT PROG Normal [facility] Comprehensive metabolic 2000 panel on 0 02-19-2023 Albumin [Mass/Vol] 3.4 g/dL Low 3.9 - 4.9 g/dL [facility] ALP [Catalytic 64 U/L 34 - 123 U/L [facility] activity/Vol] ALT [Catalytic 12 U/L 7 - 38 U/L [facility] rebecca activity/Vol] Anion gap [Moles/Vol] 7 mmol/L Low 9 - 18 mmol/L [facility] AST [Catalytic 12 U/L Low 13 - 35 U/L [facility] rebecca activity/Vol] Bilirubin [Mass/Vol] 0.2 mg/dL 0.2 - 1.3 mg/dL [facility] Calcium [Mass/Vol] 8.8 mg/dL 8.5 - 10.2 mg/dL [facility] Chloride [Moles/Vol] 100 mmol/L 97 - 105 mmol/L [facility] CO2 [Moles/Vol] 29 mmol/L 22 - 30 mmol/L [facility] Creatinine [Mass/Vol] 0.76 mg/dL 0.58 - 0.96 mg/dL C [facility] Estimated Glomerular 99 mL/min/1.73m >=60 mL/min/1.73m [facility] Filtration Rate Glucose [Mass/Vol] 153 mg/dL High 74 - 99 mg/dL [facility] Potassium [Moles/Vol] 5.0 mmol/L 3.7 - 5.1 mmol/L Cl [facility] Protein [Mass/Vol] 6.7 g/dL 6.3 - 8.0 g/dL [facility] Sodium [Moles/Vol] 136 mmol/L 136 - 144 mmol/L [facility] Urea nitrogen [Mass/Vol] 16 mg/dL 7 - 21 mg/dL [facility] ED NOTE on 02-19-2023 ED NOTE HNO ID: [id number] Normal [facility] Author: Anita Jason RN Service: ? Author Type: Registered Nurse Type: ED Notes Filed: 02/19/2023 12:25 AM Note Text: Bed: 12-ED Expected date: Expected time: Means of arrival: Comments: [place] transfer ED PROV NOTE on 02-19-2023 ED PROV NOTE Normal [facility] ED PROV NOTE Normal [facility] HISTORY PHYSICAL on 02-19-2023 HISTORY PHYSICAL Normal [facility] LIPID PANEL, NONFASTING on 02-19-2023 Cholesterol [Mass/Vol] 148 mg/dL <200 mg/dL [facility] HDL Cholesterol, Nonfasting 37 mg/dL Low >39 mg/dL [facility] LDL Cholesterol, Nonfasting 87 mg/dL <100 mg/dL [facility] LDL/HDL Ratio, Nonfasting 2.35 mg/dL <2.54 mg/dL [facility] Non HDL Cholesterol, Nonfasting 111 mg/dL <130 mg/d L [facility] Total Chol/HDL Ratio, Nonfasting 4.00 mg/dL <5.10 mg /dL [facility] Triglycerides, Nonfasting 122 mg/dL <150 mg/dL [facility] VLDL Cholesterol, Nonfasting 24 mg/dL <30 mg/dL [facility] NURSING PROG on 02-19-2023 NURSING PROG Normal [facility] PT panel Coag (PPP) on 02-19-2023 INR Coag (PPP) [Relative time] 1.1 {INR} Normal 0.9-1.3 [facility] Comment on above: Order Comment: Specimen Type : BLOOD SPECIMENOrdering Facility: [facility] Address: [address] [place] [id number] Result Comment: Vitamin K An tagonist (VKA) Therapeutic Range: INR 2 to 3 (Target INR of 2.5)Note : For patients treated with VKA drugs, such as warfarin, the [place] an [employer] Chest [employer] 2012 Guideline recommends a thera peutic INR range of 2 to 3 (target INR of 2.5). This recommendation includes high-risk patients with antiphospholipid syndrome wi th previous arterial or venous thromboembolism, current-gen eration mechanical or bioprosthetic aortic heart valve replaceme nt.Note: Patients with mechanical aortic valve replacement and additional risk factors for thromboembolic events (atria l fibrillation, previous thromboembolism, LV dysfunct ion, hypercoagulable conditions) or an older generation mechanical AVR (i.e., ball in-Cage) or any mechanical MVR should have a INR therapeutic range of 2.5 to 3.5 (target INR of 3).Gela JUNIOR, et al. Chest 2012, 141:7S-47SCristel RA, et al. [facility] 2017, 70: 25 2-289 Performed By: #### 52771-5, 63365-3 ####[facility]ITALCLIA [id number] [address] STATES OF [facility] PT Coag (PPP) [Time] 11.4 s Normal 9.7-13.0 [facility] Comment on above: Order Comment: Specimen Type : BLOOD SPECIMENOrdering Facility: [facility] Address: [address] [place] [address] Performed By: #### 57710-7, 43762-8 ####[facility]ITALCLIA [id number] [address] URINALYSIS, REFLEX MICROSCOPIC on 02-19 Bacteria LM.HPF (Urine sed) Few Abnormal None Seen [facility] [#/Area] Comment on above: Order Comment: Specimen Type : URINE SPECIMENOrdering Facility: [facility] Address: [address] [place] [address] Performed By: #### [id number] # ###[facility]ITALCLIA [id number] [address] Bilirubin Ql (U) Negative Normal Negative [facility] Comment on above: Order Comment: Specimen Type : URINE SPECIMENOrdering Facility: [facility] Address: [address] [place] [address] Performed By: #### [id number] # ###[facility]ITALCLIA [id number] [address] Clarity (Unsp spec) Clear Normal Clear [facility] Comment on above: Order Comment: Specimen Type : URINE SPECIMENOrdering Facility: [facility] Address: [address] [address] Performed By: #### [id number] # ###[facility]ORATORYCLIA [id number] [facility] [place] [address] [place] Color (U) Light Yellow Normal yellow [facility] Comment on above: Order Comment: Specimen Type : URINE SPECIMENOrdering Facility: [facility] Address: [address] [place] [address] Performed By: #### [id number] # ###[facility]ORATORYCLIA [id number] [facility] [place], [place] [id number] [place] [address] [place] Glucose Test strip (U) 4+ Abnormal Trace, Negative [facility] [Mass/Vol] Center Comment on above: Order Comment: Specimen Type : URINE SPECIMENOrdering Facility: [facility] Address: [address] [place] [address] Performed By: #### [id number] # ###[facility]ORATORYCLIA [id number] [facility] [place], [place] [address] [place] Hemoglobin Ql (U) 2+ Abnormal Negative, Trace [facility] Comment on above: Order Comment: Specimen Type : URINE SPECIMENOrdering Facility: [facility] Address: [address] [place] [address] Performed By: #### [id number] # ###[facility]ORATORYCLIA [id number] [facility] [place], [place] [id number] [place] [address] [place] Ketones Ql (U) Negative Normal Negative, Trace [facility] Comment on above: Order Comment: Specimen Type : URINE SPECIMENOrdering Facility: [facility] Address: [address] [place] [address] Performed By: #### [id number] # ###[facility]ATORYCLIA [id number] [facility] [address] [place] Leukocyte esterase Test 500 Robert/uL Abnormal Negative, 25 Robert/ uL [facility] Comment on above: Order Comment: Specimen Type : URINE SPECIMENOrdering Facility: [facility] Address: [address] [address] Performed By: #### [id number] # ###[facility] LABORATORYCLIA [id number] [place] [id number] [place] Nitrite Ql (U) Negative Normal Negative [facility] Comment on above: Order Comment: Specimen Type : URINE SPECIMENOrdering Facility: [facility] Address: [address] [address] Performed By: #### [id number] # ###[facility] LABORATORYCLIA [id number] [place] [id number] [place] pH (U) 5.5 [pH] Normal 5.0-8.0 [facility] Comment on above: Order Comment: Specimen Type : URINE SPECIMENOrdering Facility: [facility] Address: [address] [place] [address] Performed By: #### [id number] # ###[facility] [id number] [address] Protein (U) [Mass/Vol] 1+ Abnormal Trace, Negative [facility] Comment on above: Order Comment: Specimen Type : URINE SPECIMENOrdering Facility: [facility] Address: [address] [place] [address] Performed By: #### [id number] # ###[facility] LABORATORYCLIA [id number] [place] [id number] [facility] [place] RBC LM.HPF (Urine sed) [#/Area] /[HPF] Abnormal 0-3 /HPF [facility] Comment on above: Order Comment: Specimen Type : URINE SPECIMENOrdering Facility: [facility] Address: [address] [place] [address] Performed By: #### [id number] # ###[facility] LABORATORYCLIA [id number] [address] Specific gravity (U) [Rel 1.027 Normal 1.005-1.030 [facility] density] Comment on above: Order Comment: Specimen Type : URINE SPECIMENOrdering Facility: [facility] Address: [address] [address] Performed By: #### [id number] # ###[facility] LABORATORYCLIA [id number] [address] Urobilinogen Ql (U) Normal Normal Negative [facility] Comment on above: Order Comment: Specimen Type : URINE SPECIMENOrdering Facility: [facility] Address: [address] [place] [address] Performed By: #### [id number] # ###[facility] LABORATORYCLIA [id number] [facility], [address] WBC LM.HPF (Urine sed) [#/Area] /[HPF] Abnormal 0-5 /HPF [facility] Comment on above: Order Comment: Specimen Type : URINE SPECIMENOrdering Facility: [facility] Address: [address] [place] [address] Performed By: #### [id number] # ###[facility] LABORATORYCLIA [id number] [address] Yeast.budding LM.HPF (Urine sed) Few Abnormal None See n [facility] [#/Area] Comment on above: Order Comment: Specimen Type : URINE SPECIMENOrdering Facility: [facility] Address: [address] [place] [address] Performed By: #### [id number] # ###[facility] LABORATORYCLIA [id number] [address] [place] aPTT PPP on 02-19-2023 aPTT Coag (PPP) [Time] 37.2 s High 28.5-34.0 [facility] Comment on above: Order Comment: Specimen Type : BLOOD SPECIMENOrdering Facility: [facility] Address: [address] [place] [address] Performed By: #### 47951-9 # ###[facility] LABORATORYCLIA [id number] [facility], [address] aPTT Coag (PPP) [Time] 33.7 s High 23.0-32.4 [facility] Comment on above: Order Comment: Specimen Type : BLOOD SPECIMENOrdering Facility: [facility] Address: [address] [address] Performed By: #### 07201-8 # ###[facility] LABORATORYCLIA [id number] [address] [place] aPTT Coag (PPP) [Time] 28.4 s Normal 23.0-32.4 [facility] Comment on above: Order Comment: Specimen Type : BLOOD SPECIMENOrdering Facility: [facility] Address: [address] [address] Performed By: #### 92084-4, 36539-0 ####[facility] LABORATORYCLIA [id number] [address] [place] Bacteria Wnd Cult on 02-18-2023 Bacteria identified Cx Nom (Wound) Abnormal [facility] Comment on above: Performed By: #### 6462-6 ## ##[facility] LABCLIA [id number] [address] [place] CBC W Auto Differential panel (Bld) on 02-18-2023 Basophils (Bld) [#/Vol] 0.10 10*3/uL <0.11 k/uL [facility] Basophils/100 WBC (Bld) 0.8 % [facility] Differential cell count Auto [facility] method Nom (Bld) Eosinophils (Bld) [#/Vol] 0.18 10*3/uL <0.46 k/uL [facility] Eosinophils/100 WBC (Bld) 1.5 % [facility] Erythrocyte distribution 16.3 % High 11.5 - 15.0 % [facility] width (RBC) [Ratio] Hematocrit (Bld) [Volume 32.7 % Low 36.0 - 46.0 % [facility] fraction] Hemoglobin (Bld) 9.4 g/dL Low 11.5 - 15.5 g/dL [facility] [Mass/Vol] Immature granulocytes 0.11 10*3/uL High <0.10 k/uL [facility] (Bld) [#/Vol] Immature granulocytes/100 0.9 % [facility] WBC (Bld) Lymphocytes (Bld) [#/Vol] 2.20 10*3/uL 1.00 - 4.00 k/u L [facility] Lymphocytes/100 WBC (Bld) 18.5 % [facility] MCH (RBC) [Entitic mass] 26.5 pg 26.0 - 34.0 pg [facility] MCHC (RBC) [Mass/Vol] 28.7 g/dL Low 30.5 - 36.0 g/dL [facility] MCV (RBC) [Entitic vol] 92.1 fL 80.0 - 100.0 fL [facility] Monocytes (Bld) [#/Vol] 0.52 10*3/uL <0.87 k/uL [facility] Monocytes/100 WBC (Bld) 4.4 % [facility] Neutrophils (Bld) [#/Vol] 8.78 10*3/uL High 1.45 - 7.50 k/u L [facility] Neutrophils/100 WBC (Bld) 73.9 % [facility] Nucleated RBC (Bld) <0.01 k/uL [facility] [#/Vol] Nucleated RBC/100 WBC 0.0 /100 WBC [facility] (Bld) [Ratio] Platelet mean volume 10.7 fL 9.0 - 12.7 fL [facility] (Bld) [Entitic vol] Platelets (Bld) [#/Vol] 302 10*3/uL 150 - 400 k/uL [facility] RBC (Bld) [#/Vol] 3.55 10*6/uL Low 3.90 - 5.20 m/uL [facility] WBC (Bld) [#/Vol] 11.89 10*3/uL High 3.70 - 11.00 k/uL [facility] Basophils (Bld) [#/Vol] 0.10 10*3/uL Normal <0.11 [facility] Comment on above: Order Comment: Specimen Type : BLOOD SPECIMENOrdering Facility: [facility] Address: [address] [place] [address] [place] [address] Performed By: #### 79091-8 # ###[facility] LABCLIA [id number] [place] [address] [place] Basophils/100 WBC (Bld) 0.8 % Normal [facility] Comment on above: Order Comment: Specimen Type : BLOOD SPECIMENOrdering Facility: [facility] Address: [address] [place] [address] Performed By: #### 25881-3 # ###[facility] LABCLIA [id number] [place] [address] [place] Differential cell count method Nom (Bld) Auto Normal [facility] Comment on above: Order Comment: Specimen Type : BLOOD SPECIMENOrdering Facility: [facility] Address: [address] [place] [address] Performed By: #### 00030-9 # ###[facility] LABCLIA [id number] [place] [address] [place] Eosinophils (Bld) [#/Vol] 0.18 10*3/uL Normal <0.46 [facility] Comment on above: Order Comment: Specimen Type : BLOOD SPECIMENOrdering Facility: [facility] Address: [address] [place] [address] Performed By: #### 78170-9 # ###[facility] LABIA [id number] [place] [address] [place] Eosinophils/100 WBC (Bld) 1.5 % Normal [facility] Comment on above: Order Comment: Specimen Type : BLOOD SPECIMENOrdering Facility: [facility] Address: [address] [place] [address] Performed By: #### 88210-6 # ###[facility] LABIA [id number] [place] [address] [place] Erythrocyte distribution width (RBC) 16.3 % High 11.5 -15.0 [facility] [Ratio] Comment on above: Order Comment: Specimen Type : BLOOD SPECIMENOrdering Facility: [facility] Address: [address] Performed By: #### 46058-8 # ###[facility] LABIA [id number] [place] [address] [place] Hematocrit (Bld) [Volume fraction] 32.7 % Low 36.0-4 6.0 [facility] Comment on above: Order Comment: Specimen Type : BLOOD SPECIMENOrdering Facility: [facility] Address: [address] Performed By: #### 94875-6 # ###[facility] LABIA [id number] [place] [address] [place] Hemoglobin (Bld) [Mass/Vol] 9.4 g/dL Low 11.5-15.5 [facility] Comment on above: Order Comment: Specimen Type : BLOOD SPECIMENOrdering Facility: [facility] Address: [address] [place], [place] [address] Performed By: #### 38500-7 # ###[facility] LABIA [id number] [place] [address] [place] Immature granulocytes (Bld) 0.11 10*3/uL High <0.10 [facility] [#/Vol] Comment on above: Order Comment: Specimen Type : BLOOD SPECIMENOrdering Facility: [facility] Address: [address] [place], [place] [address] Performed By: #### 64125-5 # ###[facility] LABCLIA [id number] [place] [address] [place] Immature granulocytes/100 WBC (Bld) 0.9 % Normal [facility] Comment on above: Order Comment: Specimen Type : BLOOD SPECIMENOrdering Facility: [facility] Address: [address] [place], [place] [address] Performed By: #### 72319-1 # ###[facility] LABCLIA [id number] [place] [address] [place] Lymphocytes (Bld) [#/Vol] 2.20 10*3/uL Normal 1.00-4.00 [facility] Comment on above: Order Comment: Specimen Type : BLOOD SPECIMENOrdering Facility: [facility] Address: [address] [place] [address] Performed By: #### 87851-4 # ###[facility] LABCLIA [id number] [place] [address] [place] Lymphocytes/100 WBC (Bld) 18.5 % Normal [facility] Comment on above: Order Comment: Specimen Type : BLOOD SPECIMENOrdering Facility: [facility] Address: [address] [place] [address] Performed By: #### 64733-0 # ###[facility] LABCLIA [id number] [place] [address] [place] MCH (RBC) [Entitic mass] 26.5 pg Normal 26.0-34.0 [facility] Comment on above: Order Comment: Specimen Type : BLOOD SPECIMENOrdering Facility: [facility] Address: [address] [place], [place] [address] Performed By: #### 56545-4 # ###[facility] LABCLIA [id number] [place] [address] [place] MCHC (RBC) [Mass/Vol] 28.7 g/dL Low 30.5-36.0 [place] Comment on above: Order Comment: Specimen Type : BLOOD SPECIMENOrdering Facility: [facility] Address: [address] [place], [place] [address] Performed By: #### 95057-9 # ###[facility] LABCLIA [id number] [place] [address] [place] MCV (RBC) [Entitic vol] 92.1 fL Normal 80.0-100.0 [facility] Comment on above: Order Comment: Specimen Type : BLOOD SPECIMENOrdering Facility: [facility] Address: [address] Performed By: #### 96826-9 # ###[facility] LABCLIA [id number] [place] [address] [place] Monocytes (Bld) [#/Vol] 0.52 10*3/uL Normal <0.87 [facility] Comment on above: Order Comment: Specimen Type : BLOOD SPECIMENOrdering Facility: [facility] Address: [address] Performed By: #### 54627-4 # ###[facility] LABCLIA [id number] [place] [address] [place] Monocytes/100 WBC (Bld) 4.4 % Normal [facility] Comment on above: Order Comment: Specimen Type : BLOOD SPECIMENOrdering Facility: [facility] Address: [address] Performed By: #### 13220-6 # ###[facility] LABCLIA [id number] [place] [address] [place] Neutrophils (Bld) [#/Vol] 8.78 10*3/uL High 1.45-7.50 [facility] Comment on above: Order Comment: Specimen Type : BLOOD SPECIMENOrdering Facility: [facility] Address: [address] [place] [address] Performed By: #### 75222-7 # ###[facility] LABCLIA [id number] [place] [address] [place] Neutrophils/100 WBC (Bld) 73.9 % Normal [facility] Comment on above: Order Comment: Specimen Type : BLOOD SPECIMENOrdering Facility: [facility] Address: [address] Performed By: #### 17585-1 # ###[facility] LABCLIA [id number] [place] [address] [place] Nucleated RBC (Bld) [#/Vol] 10*3/uL Normal <0.01 [facility] Comment on above: Order Comment: Specimen Type : BLOOD SPECIMENOrdering Facility: [facility] Address: [address] [place] [address] Performed By: #### 25837-7 # ###[facility] LABCLIA [id number] [place] [address] [place] Nucleated RBC/100 WBC (Bld) [Ratio] 0.0 /100 WBC Normal [facility] Comment on above: Order Comment: Specimen Type : BLOOD SPECIMENOrdering Facility: [facility] Address: [address] [place] [address] Performed By: #### 58731-2 # ###[facility] LABCLIA [id number] [place] [address] [place] Platelet mean volume (Bld) 10.7 fL Normal 9.0-12.7 C [facility] [Entitic vol] Comment on above: Order Comment: Specimen Type : BLOOD SPECIMENOrdering Facility: [facility] Address: [address] [place], [place] [address] Performed By: #### 35452-5 # ###[facility] LABCLIA [id number] [place] [address] [place] Platelets (Bld) [#/Vol] 302 10*3/uL Normal 150-400 [facility] Comment on above: Order Comment: Specimen Type : BLOOD SPECIMENOrdering Facility: [facility] Address: [address] [place], [place] [address] Performed By: #### 58161-4 # ###[facility] LABCLIA [id number] [place] [address] [place] RBC (Bld) [#/Vol] 3.55 10*6/uL Low 3.90-5.20 [facility] Comment on above: Order Comment: Specimen Type : BLOOD SPECIMENOrdering Facility: [facility] Address: [address] Performed By: #### 97190-7 # ###[facility] LABCLIA [id number] [place] [address] [place] WBC (Bld) [#/Vol] 11.89 10*3/uL High 3.70-11.00 [facility] Comment on above: Order Comment: Specimen Type : BLOOD SPECIMENOrdering Facility: [facility] Address: [address] Performed By: #### 21431-7 # ###[facility] LABIA [id number] [place] [address] [place] CNOV on 02-18-2023 CNOV Normal [facility] metabolic 2000 panel on 02-18-2023 Albumin [Mass/Vol] 3.4 g/dL Low 3.9-4.9 [facility] Comment on above: Order Comment: Specimen Type : BLOOD SPECIMENOrdering Facility: [facility] Address: [address] Performed By: #### LIPNF, 323-8 ####[facility] LABCLIA [id number] [place] [address] [place] ALP [Catalytic activity/Vol] 64 U/L Normal 34-123 [facility] Comment on above: Order Comment: Specimen Type : BLOOD SPECIMENOrdering Facility: [facility] Address: [address] Performed By: #### LIPNF, 323-8 ####[facility] LABCLIA [id number] [place] [address] [place] ALT [Catalytic activity/Vol] 12 U/L Normal 7-38 [facility] Comment on above: Order Comment: Specimen Type : BLOOD SPECIMENOrdering Facility: [facility] Address: [address] [place], [place] [address] Performed By: #### LIPANN-MARIE, 8 ####[facility] LABCLIA [id number] [place] [address] [place] Anion gap [Moles/Vol] 7 mmol/L Low 9-18 [place] Comment on above: Order Comment: Specimen Type : BLOOD SPECIMENOrdering Facility: [facility] Address: [address] [place], [place] Performed By: #### LIPANN-MARIE, 8 ####[facility] LABCLIA [id number] [place] [address] [place] AST [Catalytic activity/Vol] 12 U/L Low 13-35 [facility] Comment on above: Order Comment: Specimen Type : BLOOD SPECIMENOrdering Facility: [facility] Address: [address] [place], [place] Performed By: #### LIAM, 8 ####[facility] LABCLIA [id number] [place] [address] [place] Bilirubin [Mass/Vol] 0.2 mg/dL Normal 0.2-1.3 [facility] Comment on above: Order Comment: Specimen Type : BLOOD SPECIMENOrdering Facility: [facility] Address: [address] [place], [place] Performed By: #### LIPANN-MARIE, 8 ####[facility] LABCLIA [id number] [place] [address] [place] Calcium [Mass/Vol] 8.8 mg/dL Normal 8.5-10.2 [facility] Comment on above: Order Comment: Specimen Type : BLOOD SPECIMENOrdering Facility: [facility] Address: [address] [place], [place] Performed By: #### LIPANN-MARIE, 8 ####[facility] LABCLIA [id number] [place] [address] [place] Chloride [Moles/Vol] 100 mmol/L Normal 97-105 [facility] Comment on above: Order Comment: Specimen Type : BLOOD SPECIMENOrdering Facility: [facility] Address: [address] [place] [address] Performed By: #### LIAM, 8 ####[facility] LABCLIA [id number] [place] [address] [place] CO2 [Moles/Vol] 29 mmol/L Normal 22-30 [facility] Comment on above: Order Comment: Specimen Type : BLOOD SPECIMENOrdering Facility: [facility] Address: [address] Performed By: #### LIAM, ####[facility] LABCLIA [id number] [address] [place] Creatinine [Mass/Vol] 0.76 mg/dL Normal 0.58-0.96 [place] Comment on above: Order Comment: Specimen Type : BLOOD SPECIMENOrdering Facility: [facility] Address: [address] Performed By: #### LIAM, ####[facility] LABCLIA [id number] [address] [place] ESTIMATED GLOMERULAR 99 mL/min/1.73m??? Normal >=60 C [facility] FILTRATION RATE Comment on above: Order Comment: Specimen Type : BLOOD SPECIMENOrdering Facility: [facility] Address: [address] Result Comment: Estimated Gl omerular Filtration Rate (eGFR) is calculated using the 2020 CK D-EPI creatinine equation. This equation utilizes serum crea tinine, sex, and age as parameters. The creatinine assay has traceab le calibration to isotope dilution-mass spectrometry. Refer to KDIGO guidelines for clinical interpretation. In patients with unstable renal function, e.g. those with acute kidney inju ry, the eGFR may not accurately reflect actual GFR. Performed By: #### LIAM, 8 ####[facility] LABCLIA [id number] [place] [address] [place] Glucose [Mass/Vol] 153 mg/dL High 74-99 [facility] Comment on above: Order Comment: Specimen Type : BLOOD SPECIMENOrdering Facility: [facility] Address: [address] [place] [address] Result Comment: The [place] Diabetes Association (ADA) provides guidance for cutoff values f or fasting glucose and random glucose. The ADA defines fasting as n o caloric intake for at least 8 hours. Fasting plasma glucose resul ts between 100 to 125 mg/dL indicate increased risk for diabetes (prediabetes).Fasting plasma glucose results greater than or equa l to 126 mg/dL meet the criteria for diagnosis of diabetes. In th e absence of unequivocal hyperglycemia, results should be confirmed by repeat testing. In a patient with classic symptoms of hypergly cemia or hyperglycemic crisis, random plasma glucose results great er than or equal to 200 mg/dL meet the criteria for diagnosis of di abetes.Reference: Standards of Medical Care in Diabetes 2016, [employer]i [facility] Diabetes Association. Diabetes Care. 2016.39(Suppl 1). Performed By: #### LIAM, 8 ####[facility] LABIA [id number] [place] [address] [place] Potassium [Moles/Vol] 5.0 mmol/L Normal 3.7-5.1 [place] Comment on above: Order Comment: Specimen Type : BLOOD SPECIMENOrdering Facility: [facility] Address: [address] Performed By: #### LIAM, 8 ####[facility] [id number] [place] [address] [place] Protein [Mass/Vol] 6.7 g/dL Normal 6.3-8.0 [facility] Comment on above: Order Comment: Specimen Type : BLOOD SPECIMENOrdering Facility: [facility] Address: [address] Performed By: #### LIPNF, 323-8 ####[facility] LABCLIA [id number] [place] [address] [place] Sodium [Moles/Vol] 136 mmol/L Normal 136-144 [facility] Comment on above: Order Comment: Specimen Type : BLOOD SPECIMENOrdering Facility: [facility] Address: [address] Performed By: #### LIPANN-MARIE, 8 ####[facility] LABCLIA [id number] [place] [address] [place] Urea nitrogen [Mass/Vol] 16 mg/dL Normal 7-21 [facility] Comment on above: Order Comment: Specimen Type : BLOOD SPECIMENOrdering Facility: [facility] Address: [address] [place], [place] [address] Performed By: #### LIPANN-MARIE, 8 ####[facility] LABIA [id number] [place] [address] [place] HbA1c (Bld) on 02-18-2023 Average glucose Estimated 194 mg/dL [facility] from glycated hemoglobin (Bld) [Mass/Vol] HbA1c (Bld) [Mass fraction] 8.4 % High 4.3 - 5.6 % [facility] Average glucose Estimated 194 mg/dL Normal [facility] from glycated hemoglobin (Bld) [Mass/Vol] Comment on above: Order Comment: Specimen Type : BLOOD SPECIMENOrdering Facility: [facility] [facility] Address: [address] Result Comment: eAG: (Estima mitul average glucose) is a calculated value from HgbA1c and is rep resentative of the average blood glucose level in the last 2- 3 month period. Performed By: #### 33472-4 # ###[facility] LABCLIA [id number] [place] [address] [place] HbA1c (Bld) [Mass fraction] 8.4 % High 4.3-5.6 [facility] Comment on above: Order Comment: Specimen Type : BLOOD SPECIMENOrdering Facility: [facility] Address: [address] [place] [address] Result Comment: Indian Richard betes Association guidelines indicate that patients with HgbA1c in the range 5.7-6.4% are at increased risk for development of diab etes, and intervention by lifestyle modification may be benefici al. HgbA1c greater or equal to 6.5% is considered diagnostic of richard betes. Performed By: #### 80883-9 # ###[facility] LABCLIA [id number] [place] [address] [place] LIPID PANEL, NONFASTING on 02-18-2023 Cholesterol [Mass/Vol] 148 mg/dL Normal <200 [facility] Comment on above: Order Comment: Specimen Type : BLOOD SPECIMENOrdering Facility: [facility] Address: [address] [place] [address] Result Comment: <200 mg/dL, Desirable 200-239 mg/dL, Borderline high>239 mg/dL, High Performed By: #### LIPNF, -8 ####[facility] LABCLIA [id number] [address] [place] HDL CHOLESTEROL, NF 37 mg/dL Low >39 [facility] Comment on above: Order Comment: Specimen Type : BLOOD SPECIMENOrdering Facility: [facility] Address: [address] [place] [address] Result Comment: 40-59 mg/dL, Acceptable>59 mg/dL, High: Negative risk factor for coronary hea rt disease<40 mg/dL, Low: Positive risk factor for coronary heart di sease Performed By: #### LIPNF, 323-8 ####[facility] LABCLIA [id number] [address] [place] LDL CHOLESTEROL, NF 87 mg/dL Normal <100 [facility] Comment on above: Order Comment: Specimen Type : BLOOD SPECIMENOrdering Facility: [facility] Address: [address] [place] [address] Result Comment: <100 mg/dL, Optimal 100-129 mg/dL, Near optimal/above optimal 130-15 9 mg/dL, Borderline high 160-189 mg/dL, High>189 mg/dL, Very highSec ondary prevention optimal LDL Cholesterol levels are recom mended to be < 70 mg/dL Performed By: #### LIPANN-MARIE, -8 ####[facility] LABCLIA [id number] [address] STATES OF [facility] LDL/HDL RATIO, NF 2.35 mg/dL Normal <2.54 [facility] Comment on above: Order Comment: Specimen Type : BLOOD SPECIMENOrdering Facility: [facility] Address: [address] Result Comment: Reference:1. National Cholesterol Education Program ATP III Guideline At-A-Glanc e Quick Desk Reference: National Heart, Lung, and Blood [place]. N atcritical access hospital Institutes of Health. 2001: NIH Publication No. 01-3305.2. A n International Atherosclerosis Society position paper: global recom mendations for the management of dyslipidemia: executive summ shaina, Atherosclerosis. 2014: 232(2):410-413. Performed By: #### LIAM, ####[facility] LABCLIA [id number] [address] [place] NON HDL CHOL, NF 111 mg/dL Normal <130 [facility] Comment on above: Order Comment: Specimen Type : BLOOD SPECIMENOrdering Facility: [facility] Address: [place] [address] Result Comment: <130 mg/dL, Optimal 130-159 mg/dL, Near optimal/above optimal 160-18 9 mg/dL, Borderline high 190-219 mg/dL, High>219 mg/dL, Very highSec ondary prevention optimal non HDL Cholesterol levels are recom mended to be <100 mg/dL Performed By: #### LIPANN-MARIE, 323-8 ####[facility] LABCLIA [id number] [place] [address] [id number], [place] [address] [place] T CHOL/HDL RATIO NF 4.00 mg/dL Normal <5.10 [facility] Comment on above: Order Comment: Specimen Type : BLOOD SPECIMENOrdering Facility: [facility] Address: [address] [place] [id number] Performed By: #### LIPNF, 323-8 ####[facility] LABCLIA [id number] [place] [address] [place] TRIGLYCERIDES, NF 122 mg/dL Normal <150 [facility] Comment on above: Order Comment: Specimen Type : BLOOD SPECIMENOrdering Facility: [facility] Address: [address] [place], [place] [address] Result Comment: <150 mg/dL, Normal 150-199 mg/dL, Borderline high 200-499 mg/dL, High>499 mg/d L, Very high Performed By: #### LIPNF, 323-8 ####[facility] LABCLIA [id number] [place] [address] [place] VLDL CHOLESTEROL, NF 24 mg/dL Normal <30 [facility] Comment on above: Order Comment: Specimen Type : BLOOD SPECIMENOrdering Facility: [facility] Address: [address] [place], [place] [address] Performed By: #### LIPNF, 323-8 ####[facility] LABCLIA [id number] [place] [address] [place] CNPN on 02-04-2023 CNPN Normal [facility] CNPTOUTREACH on 02-03-2023 CNPTOUTREACH Normal [facility] CNPN on 01-30-2023 CNPN Normal [facility] CNPTOUTREACH on 01-28-2023 CNPTOUTREACH Normal [facility] CNPN on 01-21-2023 CNPN Normal [facility] CNPN on 01-20-2023 CNPN Normal [facility] CNPTOUTREACH on 01-17-2023 CNPTOUTREACH Normal [facility] Basic metabolic 2000 panel on 3 Anion gap [Moles/Vol] 12 mmol/L Normal 9-18 [facility] Comment on above: Order Comment: Specimen Type : BLOOD SPECIMENOrdering Facility: [facility] Address: [address] [address] Performed By: #### 27157-8 # ###[facility]ATORYCLIA [id number] [facility] [place] [place] [address] [place] Calcium [Mass/Vol] 8.6 mg/dL Normal 8.5-10.2 [facility] Comment on above: Order Comment: Specimen Type : BLOOD SPECIMENOrdering Facility: [facility] Address: [address] [address] Performed By: #### 01084-7 # ###[facility] LABORATORYCLIA [id number] [facility], [place] [address] [place] Chloride [Moles/Vol] 98 mmol/L Normal 97-105 [facility] Comment on above: Order Comment: Specimen Type : BLOOD SPECIMENOrdering Facility: [facility] Address: [address] [address] Performed By: #### 94551-4 # ###[facility]ORATORYCLIA [id number] [place] [address] [place] CO2 [Moles/Vol] 27 mmol/L Normal 22-30 [facility] Comment on above: Order Comment: Specimen Type : BLOOD SPECIMENOrdering Facility: [facility] Address: [address] [address] Performed By: #### 84948-4 # ###[facility]ORATORYCLIA [id number] [facility] [place] Creatinine [Mass/Vol] 0.95 mg/dL Normal 0.58-0.96 [facility] Comment on above: Order Comment: Specimen Type : BLOOD SPECIMENOrdering Facility: [facility] Address: [address] [address] Performed By: #### 38626-5 # ###[facility]ITALIA [id number] [address] OF [facility] ESTIMATED GLOMERULAR 75 mL/min/1.73m??? Normal >=60 A [facility] Comment on above: Order Comment: Specimen Type : BLOOD SPECIMENOrdering Facility: [facility] Address: [address] [place] [address] Result Comment: Estimated Gl omerular Filtration Rate (eGFR) is calculated using the 2020 D-EPI creatinine equation. This equation utilizes serum crea tinine, sex, and age as parameters. The creatinine assay has traceab le calibration to isotope dilution-mass spectrometry. Refer to KDIGO guidelines for clinical interpretation. In patients with unstable renal function, e.g. those with acute kidney inju ry, the eGFR may not accurately reflect actual GFR. Performed By: #### 35312-4 # ###[facility]ITALIA [id number] [address] OF [facility] Glucose [Mass/Vol] 212 mg/dL High 74-99 [facility] Comment on above: Order Comment: Specimen Type : BLOOD SPECIMENOrdering Facility: [facility] Address: [address] [place] [address] Result Comment: The Indian Diabetes Association (ADA) provides guidance for cutoff values f or fasting glucose and random glucose. The ADA defines fasting as n o caloric intake for at least 8 hours. Fasting plasma glucose resul ts between 100 to 125 mg/dL indicate increased risk for diabetes (prediabetes).Fasting plasma glucose results greater than or equa l to 126 mg/dL meet the criteria for diagnosis of diabetes. In th e absence of unequivocal hyperglycemia, results should be confirmed by repeat testing. In a patient with classic symptoms of hypergly cemia or hyperglycemic crisis, random plasma glucose results great er than or equal to 200 mg/dL meet the criteria for diagnosis of di abetes.Reference: Standards of Medical Care in Diabetes 2016, Ameri can Diabetes Association. Diabetes Care. 2016.39(Suppl 1). Performed By: #### 34382-2 # ###[facility]ITAL[facility] [id number] [address] [place] Potassium [Moles/Vol] 3.8 mmol/L Normal 3.7-5.1 [facility] Comment on above: Order Comment: Specimen Type : BLOOD SPECIMENOrdering Facility: [facility] Address: [address] [place] [address] Performed By: #### 55898-1 # ###[facility] LABORATORYCLIA [id number] [place] [id number] [place] Sodium [Moles/Vol] 137 mmol/L Normal 136-144 [facility] Comment on above: Order Comment: Specimen Type : BLOOD SPECIMENOrdering Facility: [facility] Address: [address] [place] [address] Performed By: #### 53174-4 # ###[facility] LABORATORYCLIA [id number] [address] [place] Urea nitrogen [Mass/Vol] 12 mg/dL Normal 7-21 [facility] Comment on above: Order Comment: Specimen Type : BLOOD SPECIMENOrdering Facility: [facility] Address: [address] [place] [address] Performed By: #### 40483-6 # ###[facility] LABORATORYCLIA [id number] [place] [id number] [place] CASE MANAGEM on 01-16-2023 CASE MANAGEM Normal [facility] CBC panel Auto (Bld) on 01-16-2023 Erythrocyte distribution width 16.8 % High 11.5-15.0 [facility] (RBC) [Ratio] Comment on above: Order Comment: Specimen Type : BLOOD SPECIMENOrdering Facility: [facility] Address: [address] [address] Performed By: #### 61359-0 # ###[facility] LABORATORYCLIA [id number] [address] [place] Hematocrit (Bld) [Volume fraction] 33.3 % Low 36.0-4 6.0 [facility] Comment on above: Order Comment: Specimen Type : BLOOD SPECIMENOrdering Facility: [facility] Address: [address] [address] Performed By: #### 84717-6 # ###[facility] LABORATORYCLIA [id number] [facility] OF [facility] Hemoglobin (Bld) [Mass/Vol] 9.7 g/dL Low 11.5-15.5 [facility] Comment on above: Order Comment: Specimen Type : BLOOD SPECIMENOrdering Facility: [facility] Address: [address] [address] Performed By: #### 07856-2 # ###[facility] LABORATORYCLIA [id number] [address] OF [facility] MCH (RBC) [Entitic mass] 27.6 pg Normal 26.0-34.0 [facility] Comment on above: Order Comment: Specimen Type : BLOOD SPECIMENOrdering Facility: [facility] Address: [address] [address] Performed By: #### 78943-9 # ###[facility] LABORATORYCLIA [id number] [address] MCHC (RBC) [Mass/Vol] 29.1 g/dL Low 30.5-36.0 [facility] Comment on above: Order Comment: Specimen Type : BLOOD SPECIMENOrdering Facility: [facility] Address: [address] [place] [address] Performed By: #### 35291-2 # ###[facility] LABORATORYCLIA [id number] [facility], [address] STATES OF [facility] MCV (RBC) [Entitic vol] 94.9 fL Normal 80.0-100.0 [facility] Comment on above: Order Comment: Specimen Type : BLOOD SPECIMENOrdering Facility: [facility] Address: [address] [address] Performed By: #### 99752-6 # ###[facility] LABORATORYCLIA [id number] [place] [address] [place] Nucleated RBC (Bld) [#/Vol] 0.02 10*3/uL High <0.01 [facility] Comment on above: Order Comment: Specimen Type : BLOOD SPECIMENOrdering Facility: [facility] Address: [address] [place] [address] Performed By: #### 08782-5 # ###[facility] LABORATORYCLIA [id number] [facility] [place], [address] [place] Platelet mean volume (Bld) 9.4 fL Normal 9.0-12.7 [facility] [Entitic vol] Comment on above: Order Comment: Specimen Type : BLOOD SPECIMENOrdering Facility: [facility] Address: [address] [place] [address] Performed By: #### 63893-7 # ###[facility] LABORATORYCLIA [id number] [address] [place] Platelets (Bld) [#/Vol] 234 10*3/uL Normal 150-400 [facility] Comment on above: Order Comment: Specimen Type : BLOOD SPECIMENOrdering Facility: [facility] Address: [address] [place] [address] Performed By: #### 80322-1 # ###[facility] LABORATORYCLIA [id number] [facility], [address] [place] RBC (Bld) [#/Vol] 3.51 10*6/uL Low 3.90-5.20 [facility] Comment on above: Order Comment: Specimen Type : BLOOD SPECIMENOrdering Facility: [facility] Address: [address] [address] Performed By: #### 76394-8 # ###[facility] LABORATORYCLIA [id number] [facility], [address] [place] WBC (Bld) [#/Vol] 11.70 10*3/uL High 3.70-11.00 [facility] Comment on above: Order Comment: Specimen Type : BLOOD SPECIMENOrdering Facility: [facility] Address: [address] [place], [place] [address] [address] Performed By: #### 24491-7 # ###[facility]ORATORYCLIA [id number] [facility] [place] [place] [address] [place] CNDS on 01-16-2023 CNDS Normal [facility] NURSING PROG on 01-16-2023 NURSING PROG Normal [facility] Basic metabolic 2000 panel on 3 Anion gap [Moles/Vol] 10 mmol/L Normal 9-18 [facility] Comment on above: Order Comment: Specimen Type : BLOOD SPECIMENOrdering Facility: [facility] Address: [address] [place] [address] Performed By: #### 46088-6 # ###[facility]ORATORYCLIA [id number] [facility] [place] [place] [address] [place] Calcium [Mass/Vol] 8.8 mg/dL Normal 8.5-10.2 [facility] Comment on above: Order Comment: Specimen Type : BLOOD SPECIMENOrdering Facility: [facility] Address: [address] [place] [address] Performed By: #### 94070-5 # ###[facility]ORATORYCLIA [id number] [facility] [place] [address] [place] Chloride [Moles/Vol] 99 mmol/L Normal 97-105 [facility] Comment on above: Order Comment: Specimen Type : BLOOD SPECIMENOrdering Facility: [facility] Address: [address] [place] [address] Performed By: #### 21611-8 # ###[facility] LABORATORYCLIA [id number] [facility] [place] [place] [address] [place] CO2 [Moles/Vol] 29 mmol/L Normal 22-30 [facility] Comment on above: Order Comment: Specimen Type : BLOOD SPECIMENOrdering Facility: [facility] Address: [address] [place] [address] Performed By: #### 95871-7 # ###[facility]ORATORYCLIA [id number] [place] [id number] [place] OF [facility] Creatinine [Mass/Vol] 0.85 mg/dL Normal 0.58-0.96 [facility] Comment on above: Order Comment: Specimen Type : BLOOD SPECIMENOrdering Facility: [facility] Address: [address] [place] [address] Performed By: #### 05881-0 # ###[facility] LABORATORYIA [id number] [place] [id number] [facility] ESTIMATED GLOMERULAR 86 mL/min/1.73m??? Normal >=60 A [facility] Comment on above: Order Comment: Specimen Type : BLOOD SPECIMENOrdering Facility: [facility] Address: [address] [place] [address] Result Comment: Estimated Gl omerular Filtration Rate (eGFR) is calculated using the 2020 D-EPI creatinine equation. This equation utilizes serum crea tinine, sex, and age as parameters. The creatinine assay has traceab le calibration to isotope dilution-mass spectrometry. Refer to KDIGO guidelines for clinical interpretation. In patients with unstable renal function, e.g. those with acute kidney inju ry, the eGFR may not accurately reflect actual GFR. Performed By: #### 81598-1 # ###[facility] LABORATORYIA [id number] [place] [id number] [place] Glucose [Mass/Vol] 184 mg/dL High 74-99 [facility] Comment on above: Order Comment: Specimen Type : BLOOD SPECIMENOrdering Facility: [facility] Address: [address] [place] [address] Result Comment: The [place] Diabetes Association (ADA) provides guidance for cutoff values f or fasting glucose and random glucose. The ADA defines fasting as n o caloric intake for at least 8 hours. Fasting plasma glucose resul ts between 100 to 125 mg/dL indicate increased risk for diabetes (prediabetes).Fasting plasma glucose results greater than or equa l to 126 mg/dL meet the criteria for diagnosis of diabetes. In th e absence of unequivocal hyperglycemia, results should be confirmed by repeat testing. In a patient with classic symptoms of hypergly cemia or hyperglycemic crisis, random plasma glucose results great er than or equal to 200 mg/dL meet the criteria for diagnosis of di abetes.Reference: Standards of Medical Care in Diabetes 2016, [employer] Diabetes Association. Diabetes Care. 2016.39(Suppl 1). Performed By: #### 99447-5 # ###[facility] LABORATORYCLIA [id number] [address] [place] Potassium [Moles/Vol] 3.7 mmol/L Normal 3.7-5.1 [facility] Comment on above: Order Comment: Specimen Type : BLOOD SPECIMENOrdering Facility: [facility] Address: [address] [place] [address] Performed By: #### 79796-7 # ###[facility]ITALIA [id number] [address] STATES OF [facility] Sodium [Moles/Vol] 138 mmol/L Normal 136-144 [facility] Comment on above: Order Comment: Specimen Type : BLOOD SPECIMENOrdering Facility: [facility] Address: [address] [place] [address] Performed By: #### 72444-5 # ###[facility]ITALIA [id number] [address] [place] Urea nitrogen [Mass/Vol] 8 mg/dL Normal 7-21 [facility] Comment on above: Order Comment: Specimen Type : BLOOD SPECIMENOrdering Facility: [facility] Address: [address] [place] [address] Performed By: #### 47090-3 # ###[facility]ITALCL[facility] [id number] [address] [place] C trach+GC DNA Ur Ql SURESH+probe on 01-15 C. trachomatis+N. GC AMPLIFICATION: Normal [facility] gonorrhoeae DNA SURESH+probe Ql Negative for Neisseria go norrhoeae by amplification [facility] (U) CHLAMYDIA AMPLIFICATION: Negative for Chlamydia trachomatis by amplification Comment on above: Performed By: #### 44991-6 # ###[facility] LABORATORYCLIA [id number] [address] OF [facility] CASE MGT INIT ASSES on 01-15-2023 CASE MGT INIT ASSES Normal [facility] CBC panel Auto (Bld) on 01-15-2023 Erythrocyte distribution width 16.7 % High 11.5-15.0 [facility] (RBC) [Ratio] Comment on above: Order Comment: Specimen Type : BLOOD SPECIMENOrdering Facility: [facility] Address: [address] [place] [address] Performed By: #### 48847-2 # ###[facility] LABORATORYCLIA [id number] [address] Hematocrit (Bld) [Volume fraction] 35.8 % Low 36.0-4 6.0 [facility] Comment on above: Order Comment: Specimen Type : BLOOD SPECIMENOrdering Facility: [facility] Address: [address] [place] [address] Performed By: #### 70386-6 # ###[facility] LABORATORYCLIA [id number] [address] OF [facility] Hemoglobin (Bld) [Mass/Vol] 10.3 g/dL Low 11.5-15.5 [facility] Comment on above: Order Comment: Specimen Type : BLOOD SPECIMENOrdering Facility: [facility] Address: [address] [place] [address] Performed By: #### 19943-6 # ###[facility] LABORATORYCLIA [id number] [address] OF [place] MCH (RBC) [Entitic mass] 27.4 pg Normal 26.0-34.0 [facility] Comment on above: Order Comment: Specimen Type : BLOOD SPECIMENOrdering Facility: [facility] Address: [address] [place] [address] Performed By: #### 01426-6 # ###[facility] LABORATORYCLIA [id number] [address] MCHC (RBC) [Mass/Vol] 28.8 g/dL Low 30.5-36.0 [facility] Comment on above: Order Comment: Specimen Type : BLOOD SPECIMENOrdering Facility: [facility] Address: [address] [place] [address] Performed By: #### 21518-5 # ###[facility] LABORATORYCLIA [id number] [facility] [place], [address] STATES OF [facility] MCV (RBC) [Entitic vol] 95.2 fL Normal 80.0-100.0 [facility] Comment on above: Order Comment: Specimen Type : BLOOD SPECIMENOrdering Facility: [facility] Address: [address] [place] [address] Performed By: #### 83494-0 # ###[facility] LABORATORYCLIA [id number] [facility], [address] [place] Nucleated RBC (Bld) [#/Vol] 0.02 10*3/uL High <0.01 [facility] Comment on above: Order Comment: Specimen Type : BLOOD SPECIMENOrdering Facility: [facility] Address: [address] [address] Performed By: #### 77427-2 # ###[facility] LABORATORYCLIA [id number] [facility], [address] [place] Platelet mean volume (Bld) 9.4 fL Normal 9.0-12.7 [facility] [Entitic vol] Comment on above: Order Comment: Specimen Type : BLOOD SPECIMENOrdering Facility: [facility] Address: [address] [place] [address] Performed By: #### 02718-7 # ###[facility] LABORATORYCLIA [id number] [facility], [address] Platelets (Bld) [#/Vol] 265 10*3/uL Normal 150-400 [facility] Comment on above: Order Comment: Specimen Type : BLOOD SPECIMENOrdering Facility: [facility] Address: [address] [address] Performed By: #### 21371-7 # ###[facility] LABORATORYCLIA [id number] [place] [address] [place] RBC (Bld) [#/Vol] 3.76 10*6/uL Low 3.90-5.20 [facility] Comment on above: Order Comment: Specimen Type : BLOOD SPECIMENOrdering Facility: [facility] Address: [address] [place] [address] Performed By: #### 32739-4 # ###[facility]ITALIA [id number] [place] [address] [place] [facility] WBC (Bld) [#/Vol] 11.55 10*3/uL High 3.70-11.00 [facility] Comment on above: Order Comment: Specimen Type : BLOOD SPECIMENOrdering Facility: [facility] Address: [address] [place] [address] Performed By: #### 71036-3 # ###[facility] [id number] [address] OF [facility] CNPN on 01-15-2023 CNPN Normal [facility] CONSULT PROG on 01-15-2023 CONSULT PROG Normal [facility] HCG ( test) Ql (U) on 01-15-20 23 Specific gravity (U) [Rel 1.014 Normal 1.006-1.029 [facility] density] Comment on above: Order Comment: Specimen Type : URINE SPECIMENOrdering Facility: [facility] Address: [address] [place] [address] Result Comment: If specific gravity is <1.005 then results may be falsely negative. Serum HCG is recommended. Performed By: #### 2106-3 ## ##[facility] [id number] [address] HCG Preg Ur Ql on 01-15-2023 HCG ( test) Ql (U) Negative Normal Negative [facility] Comment on above: Order Comment: Specimen Type : URINE SPECIMENOrdering Facility: [facility] Address: [address] [id number] Result Comment: This test is intended to aid in the early detection of . Very dilute ur ine samples, as indicated by a low specific gravity, may not co ntain provider relations representative levels of hCG. This test detects intact hCG only. This test does not reliably detect hCG degradation produ cts, including free-beta subunit and beta-core fragment. Therefor e, this test may show reduced reactivity in urine after 8 weeks gestation. A number of conditions other than , includ ing trophoblastic disease and certain non-trophoblastic neoplasms cause elevated levels of hCG. As with any assay employing mouse an tibodies, the possibility exists for interference by human anti-m ouse antibodies (HAMA) in the specimen. The test provides a presumpt sudarshan diagnosis for . Performed By: #### 2106-3 ## ##[facility] [id number] [address] [place] T VAGINALIS AMPLIFICATION on 01-15-2023 T. vaginalis DNA Negative Normal Negative for Trichomonas [facility] SURESH+probe Ql (Unsp vaginalis by [facility] spec) Comment on above: Order Comment: Specimen Type : URINE SPECIMENOrdering Facility: [facility] Address: [address] [place], [place] [id number] Performed By: #### TRVAMP ## ##[facility] LABCLIA [id number] [facility] [place] [address] [place] ALLIED HEALTH on 01-14-2023 ALLIED HEALTH Normal [facility] ANES POSTPROC EVAL on 01-14-2023 ANES POSTPROC EVAL Normal [facility] ANES PRE-OP on 01-14-2023 ANES PRE-OP Normal [facility] BRIEF OP NOT on 01-14-2023 BRIEF OP NOT Normal [facility] Bacteria Wnd Cult on 01-14-2023 Bacteria identified Cx Nom (Wound) Abnormal [facility] Comment on above: Performed By: #### 6462-6 ## ##[facility] LABORATORYCLIA [id number] [place] [address] [place] Basic metabolic 2000 panel on 3 Anion gap [Moles/Vol] 10 mmol/L Normal 9-18 [facility] Comment on above: Order Comment: Specimen Type : BLOOD SPECIMENOrdering Facility: [facility] Address: [address] [facility] [facility] [place] [address] Performed By: #### 05242-6 # ###[facility]ORATORYCLIA [id number] [facility] [place] [address] [place] Calcium [Mass/Vol] 8.9 mg/dL Normal 8.5-10.2 [facility] Comment on above: Order Comment: Specimen Type : BLOOD SPECIMENOrdering Facility: [facility] Address: [address] [place] [address] Performed By: #### 02713-8 # ###[facility] LABORATORYCLIA [id number] [facility] [place] [address] [place] Chloride [Moles/Vol] 98 mmol/L Normal 97-105 [facility] Comment on above: Order Comment: Specimen Type : BLOOD SPECIMENOrdering Facility: [facility] Address: [address] [place] [address] Performed By: #### 41591-0 # ###[facility]ORATORYCLIA [id number] [place] [address] [place] CO2 [Moles/Vol] 28 mmol/L Normal 22-30 [facility] Comment on above: Order Comment: Specimen Type : BLOOD SPECIMENOrdering Facility: [facility] Address: [address] [place] [address] Performed By: #### 98944-1 # ###[facility]ORATORYCLIA [id number] [place] [address] [place] Creatinine [Mass/Vol] 0.82 mg/dL Normal 0.58-0.96 [facility] Comment on above: Order Comment: Specimen Type : BLOOD SPECIMENOrdering Facility: [facility] Address: [address] [place] [address] Performed By: #### 38838-1 # ###[facility]ORATORYCLIA [id number] [place] [address] [place] ESTIMATED GLOMERULAR 90 mL/min/1.73m??? Normal >=60 [facility] Comment on above: Order Comment: Specimen Type : BLOOD SPECIMENOrdering Facility: [facility] Address: [address] [place] [address] Result Comment: Estimated Gl omerular Filtration Rate (eGFR) is calculated using the 2020 CK D-EPI creatinine equation. This equation utilizes serum crea tinine, sex, and age as parameters. The creatinine assay has traceab le calibration to isotope dilution-mass spectrometry. Refer to KDIGO guidelines for clinical interpretation. In patients with unstable renal function, e.g. those with acute kidney inju ry, the eGFR may not accurately reflect actual GFR. Performed By: #### 77611-6 # ###[facility] [id number] [place] [address] [place] Glucose [Mass/Vol] 178 mg/dL High 74-99 [facility] Comment on above: Order Comment: Specimen Type : BLOOD SPECIMENOrdering Facility: [facility] Address: [address] [place] [address] Result Comment: The [place] Diabetes Association (ADA) provides guidance for cutoff values f or fasting glucose and random glucose. The ADA defines fasting as n o caloric intake for at least 8 hours. Fasting plasma glucose resul ts between 100 to 125 mg/dL indicate increased risk for diabetes (prediabetes).Fasting plasma glucose results greater than or equa l to 126 mg/dL meet the criteria for diagnosis of diabetes. In th e absence of unequivocal hyperglycemia, results should be confirmed by repeat testing. In a patient with classic symptoms of hypergly cemia or hyperglycemic crisis, random plasma glucose results great er than or equal to 200 mg/dL meet the criteria for diagnosis of di abetes.Reference: Standards of Medical Care in Diabetes 2016, Ameri can Diabetes Association. Diabetes Care. 2016.39(Suppl 1). Performed By: #### 01881-3 # ###[facility] LABORATORYIA [id number] [place] [address] [place] Potassium [Moles/Vol] 3.9 mmol/L Normal 3.7-5.1 [facility] Comment on above: Order Comment: Specimen Type : BLOOD SPECIMENOrdering Facility: [facility] Address: [address] [place] [address] Performed By: #### 79824-0 # ###[facility] LABORATORYCLIA [id number] [place] [address] [place] Sodium [Moles/Vol] 136 mmol/L Normal 136-144 [facility] Comment on above: Order Comment: Specimen Type : BLOOD SPECIMENOrdering Facility: [facility] Address: [address] [place] [address] Performed By: #### 39919-0 # ###[facility] LABORATORYCLIA [id number] [place] [address] [place] Urea nitrogen [Mass/Vol] 11 mg/dL Normal 7-21 [facility] Comment on above: Order Comment: Specimen Type : BLOOD SPECIMENOrdering Facility: [facility] Address: [address] [place] [address] Performed By: #### 15988-7 # ###[facility] LABORATORYCLIA [id number] [place] [address] [place] CBC panel Auto (Bld) on 01-14-2023 Erythrocyte distribution width 16.5 % High 11.5-15.0 [facility] (RBC) [Ratio] Comment on above: Order Comment: Specimen Type : BLOOD SPECIMENOrdering Facility: [facility] Address: [address] [place] [address] Performed By: #### 18223-8 # ###[facility] LABORATORYCLIA [id number] [address] [place] Hematocrit (Bld) [Volume fraction] 33.1 % Low 36.0-4 6.0 [facility] Comment on above: Order Comment: Specimen Type : BLOOD SPECIMENOrdering Facility: [facility] Address: [address] [place] [address] Performed By: #### 08367-1 # ###[facility] LABORATORYCLIA [id number] [facility], [address] [place] Hemoglobin (Bld) [Mass/Vol] 10.0 g/dL Low 11.5-15.5 [facility] Comment on above: Order Comment: Specimen Type : BLOOD SPECIMENOrdering Facility: [facility] Address: [address] [place] [address] Performed By: #### 86667-5 # ###[facility] LABORATORYCLIA [id number] [address] OF [facility] MCH (RBC) [Entitic mass] 28.0 pg Normal 26.0-34.0 [facility] Comment on above: Order Comment: Specimen Type : BLOOD SPECIMENOrdering Facility: [facility] Address: [address] [place] [address] Performed By: #### 98827-4 # ###[facility] LABORATORYCLIA [id number] [address] MCHC (RBC) [Mass/Vol] 30.2 g/dL Low 30.5-36.0 [facility] Comment on above: Order Comment: Specimen Type : BLOOD SPECIMENOrdering Facility: [facility] Address: [address] [place] [address] Performed By: #### 66173-5 # ###[facility] LABORATORYCLIA [id number] [address] OF [facility] MCV (RBC) [Entitic vol] 92.7 fL Normal 80.0-100.0 [facility] Comment on above: Order Comment: Specimen Type : BLOOD SPECIMENOrdering Facility: [facility] Address: [address] [place] [address] Performed By: #### 39012-2 # ###[facility] LABORATORYCLIA [id number] [facility], [address] OF [facility] Nucleated RBC (Bld) [#/Vol] 10*3/uL Normal <0.01 [facility] Comment on above: Order Comment: Specimen Type : BLOOD SPECIMENOrdering Facility: [facility] Address: [address] [place] [address] Performed By: #### 94575-0 # ###[facility] LABORATORYCLIA [id number] [address] [place] Platelet mean volume (Bld) 9.5 fL Normal 9.0-12.7 [facility] [Entitic vol] Comment on above: Order Comment: Specimen Type : BLOOD SPECIMENOrdering Facility: [facility] Address: [address] [place] [address] Performed By: #### 11230-1 # ###[facility] LABORATORYCLIA [id number] [facility] [address] [place] Platelets (Bld) [#/Vol] 284 10*3/uL Normal 150-400 [facility] Comment on above: Order Comment: Specimen Type : BLOOD SPECIMENOrdering Facility: [facility] Address: [address] [place] [address] Performed By: #### 66951-7 # ###[facility] LABORATORYCLIA [id number] [facility], [place] [address] [place] RBC (Bld) [#/Vol] 3.57 10*6/uL Low 3.90-5.20 [facility] Comment on above: Order Comment: Specimen Type : BLOOD SPECIMENOrdering Facility: [facility] Address: [address] Performed By: #### 54125-5 # ###[facility] LABORATORYCLIA [id number] [facility], [address] [place] WBC (Bld) [#/Vol] 9.64 10*3/uL Normal 3.70-11.00 [facility] Comment on above: Order Comment: Specimen Type : BLOOD SPECIMENOrdering Facility: [facility] Address: [address] [place] [address] Performed By: #### 45652-7 # ###[facility] LABORATORYCLIA [id number] [facility] [place] [place] [address] [place] CNPN on 01-14-2023 CNPN Normal [facility] CNPTOUTREACH on 01-14-2023 CNPTOUTREACH Normal [facility] CT ABD/PEL W IVCON on 01-14-2023 CT ABD/PEL W IVCON Normal [facility] HISTORY PHYSICAL on 01-14-2023 HISTORY PHYSICAL Normal [facility] OPERATIVE NO on 01-14-2023 OPERATIVE NO Normal [facility] SARS-CoV-2 RNA Resp Ql SURESH+probe on SARS-CoV-2 (COVID-19) RNA COVID 19 RESULT: Normal [facility] SURESH+probe Ql (Resp) Not detected Center The method used is RT-PCR or an equivalent NAAT method . Reference Range(the expected result in uninfected jone viduals): Not detected Comment on above: Performed By: #### 91531-8 # ###[facility] LABORATORYCLIA [id number] [facility] [place] [address] [place] CNOV on 01-13-2023 CNOV Normal [facility] CNPN on 01-13-2023 CNPN Normal [facility] Basic metabolic 2000 panel on 3 Anion gap [Moles/Vol] 14 mmol/L Normal 9-18 [facility] Comment on above: Order Comment: Specimen Type : BLOOD SPECIMENOrdering Facility: [facility] Address: [address] [place] [address] Performed By: #### 23606-7 # ###[facility] LABORATORYCLIA [id number] [facility] [place] [address] [place] Calcium [Mass/Vol] 9.4 mg/dL Normal 8.5-10.2 [facility] Comment on above: Order Comment: Specimen Type : BLOOD SPECIMENOrdering Facility: [facility] Address: [address] [place] [address] Performed By: #### 49380-6 # ###[facility] LABORATORYCLIA [id number] [address] [place] Chloride [Moles/Vol] 101 mmol/L Normal 97-105 [facility] Comment on above: Order Comment: Specimen Type : BLOOD SPECIMENOrdering Facility: [facility] Address: [address] [place] [address] Performed By: #### 74762-0 # ###[facility]ITALCLIA [id number] [address] [place] CO2 [Moles/Vol] 26 mmol/L Normal 22-30 [facility] Comment on above: Order Comment: Specimen Type : BLOOD SPECIMENOrdering Facility: [facility] Address: [address] [place] [address] Performed By: #### 67274-5 # ###[facility]ITALIA [id number] [address] [place] Creatinine [Mass/Vol] 0.76 mg/dL Normal 0.58-0.96 [facility] Comment on above: Order Comment: Specimen Type : BLOOD SPECIMENOrdering Facility: [facility] Address: [address] [place] [address] Performed By: #### 09245-5 # ###[facility]ITALIA [id number] [address] OF [place] ESTIMATED GLOMERULAR 99 mL/min/1.73m??? Normal >=60 [facility] Comment on above: Order Comment: Specimen Type : BLOOD SPECIMENOrdering Facility: [facility] Address: [address] [place] [address] Result Comment: Estimated Gl omerular Filtration Rate (eGFR) is calculated using the 2020 CK D-EPI creatinine equation. This equation utilizes serum crea tinine, sex, and age as parameters. The creatinine assay has traceab le calibration to isotope dilution-mass spectrometry. Refer to KDIGO guidelines for clinical interpretation. In patients with unstable renal function, e.g. those with acute kidney inju ry, the eGFR may not accurately reflect actual GFR. Performed By: #### 85039-2 # ###[facility] LABORATORYCLIA [id number] [place] [address] [place] Glucose [Mass/Vol] 221 mg/dL High 74-99 [facility] Comment on above: Order Comment: Specimen Type : BLOOD SPECIMENOrdering Facility: [facility] Address: [address] [place] [address] Result Comment: The [place] Diabetes Association (ADA) provides guidance for cutoff values f or fasting glucose and random glucose. The ADA defines fasting as n o caloric intake for at least 8 hours. Fasting plasma glucose resul ts between 100 to 125 mg/dL indicate increased risk for diabetes (prediabetes).Fasting plasma glucose results greater than or equa l to 126 mg/dL meet the criteria for diagnosis of diabetes. In th e absence of unequivocal hyperglycemia, results should be confirmed by repeat testing. In a patient with classic symptoms of hypergly cemia or hyperglycemic crisis, random plasma glucose results great er than or equal to 200 mg/dL meet the criteria for diagnosis of di abetes.Reference: Standards of Medical Care in Diabetes 2016, [employer] Diabetes Association. Diabetes Care. 2016.39(Suppl 1). Performed By: #### 67255-8 # ###[facility] LABORATORYCLIA [id number] [place] [address] [place] Potassium [Moles/Vol] 4.7 mmol/L Normal 3.7-5.1 [facility] Comment on above: Order Comment: Specimen Type : BLOOD SPECIMENOrdering Facility: [facility] Address: [address] [place] [address] Performed By: #### 77997-9 # ###[facility] LABORATORYCLIA [id number] [place] [address] [place] Sodium [Moles/Vol] 141 mmol/L Normal 136-144 [facility] Comment on above: Order Comment: Specimen Type : BLOOD SPECIMENOrdering Facility: [facility] Address: [address] [place] [address] Performed By: #### 44596-9 # ###[facility] LABORATORYCLIA [id number] [place] [address] [place] Urea nitrogen [Mass/Vol] 15 mg/dL Normal 7-21 [facility] Comment on above: Order Comment: Specimen Type : BLOOD SPECIMENOrdering Facility: [facility] Address: [address] [place] [address] Performed By: #### 60070-2 # ###[facility]ORATORYCLIA [id number] [facility] [place], [place] [address] [place] CBC W Auto Differential panel (Bld) on 01-12-2023 Basophils (Bld) [#/Vol] 0.09 10*3/uL Normal <0.11 [facility] Comment on above: Order Comment: Specimen Type : BLOOD SPECIMENOrdering Facility: [facility] Address: [address] [place] [address] Performed By: #### 89185-9 # ###[facility] LABORATORYCLIA [id number] [facility] [place], [place] [address] [place] Basophils/100 WBC (Bld) 0.9 % Normal [facility] Comment on above: Order Comment: Specimen Type : BLOOD SPECIMENOrdering Facility: [facility] Address: [address] [place] [address] Performed By: #### 28907-8 # ###[facility]ORATORYCLIA [id number] [facility], [address] [place] Differential cell count method Nom (Bld) Auto Normal [facility] Comment on above: Order Comment: Specimen Type : BLOOD SPECIMENOrdering Facility: [facility] Address: [address] [place] [address] Performed By: #### 62079-5 # ###[facility]ORATORYCLIA [id number] [facility], [place] [address] [place] Eosinophils (Bld) [#/Vol] 0.22 10*3/uL Normal <0.46 [facility] Comment on above: Order Comment: Specimen Type : BLOOD SPECIMENOrdering Facility: [facility] Address: [address] [place] [address] Performed By: #### 63564-9 # ###[facility]ORATORYCLIA [id number] [facility] [place], [address] [place] Eosinophils/100 WBC (Bld) 2.1 % Normal [facility] Comment on above: Order Comment: Specimen Type : BLOOD SPECIMENOrdering Facility: [facility] Address: [address] [place] [address] Performed By: #### 48531-7 # ###[facility]ORATORYCLIA [id number] [facility]ON[address] [place] Erythrocyte distribution width 16.6 % High 11.5-15.0 [facility] (RBC) [Ratio] Comment on above: Order Comment: Specimen Type : BLOOD SPECIMENOrdering Facility: [facility] Address: [address] [place] [address] Performed By: #### 73065-3 # ###[facility] LABORATORYCLIA [id number] [address] [place] Hematocrit (Bld) [Volume 37.0 % Normal 36.0-46.0 [facility] fraction] Comment on above: Order Comment: Specimen Type : BLOOD SPECIMENOrdering Facility: [facility] Address: [address] [place] [address] Performed By: #### 70993-6 # ###[facility] LABORATORYCLIA [id number] [facility], [address] [place] Hemoglobin (Bld) [Mass/Vol] 10.9 g/dL Low 11.5-15.5 [facility] Comment on above: Order Comment: Specimen Type : BLOOD SPECIMENOrdering Facility: [facility] Address: [address] [place] [address] Performed By: #### 16047-3 # ###[facility] LABORATORYCLIA [id number] [address] Immature granulocytes (Bld) 0.12 10*3/uL High <0.10 [facility] [#/Vol] Comment on above: Order Comment: Specimen Type : BLOOD SPECIMENOrdering Facility: [facility] Address: [address] [place] [address] Performed By: #### 60593-9 # ###[facility]ORATORYCLIA [id number] [address] Immature granulocytes/100 WBC (Bld) 1.1 % Normal [facility] Comment on above: Order Comment: Specimen Type : BLOOD SPECIMENOrdering Facility: [facility] Address: [address] [address] Performed By: #### 26175-1 # ###[facility]ORATORYCLIA [id number] [facility], [address] [place] Lymphocytes (Bld) [#/Vol] 2.50 10*3/uL Normal 1.00-4.00 [facility] Comment on above: Order Comment: Specimen Type : BLOOD SPECIMENOrdering Facility: [facility] Address: [address] [place] [address] Performed By: #### 30687-5 # ###[facility]ORATORYCLIA [id number] [address] Lymphocytes/100 WBC (Bld) 23.8 % Normal [facility] Comment on above: Order Comment: Specimen Type : BLOOD SPECIMENOrdering Facility: [facility] Address: [address] [place] [address] Performed By: #### 64169-0 # ###[facility]ORATORYCLIA [id number] [facility], [address] [place] MCH (RBC) [Entitic mass] 28.0 pg Normal 26.0-34.0 [facility] Comment on above: Order Comment: Specimen Type : BLOOD SPECIMENOrdering Facility: [facility] Address: [address] [address] Performed By: #### 41360-1 # ###[facility]ORATORYCLIA [id number] [facility], [address] [place] MCHC (RBC) [Mass/Vol] 29.5 g/dL Low 30.5-36.0 [facility] Comment on above: Order Comment: Specimen Type : BLOOD SPECIMENOrdering Facility: [facility] Address: [address] [place] [address] Performed By: #### 93462-0 # ###[facility]ORATORYCLIA [id number] [facility], [address] [place] MCV (RBC) [Entitic vol] 95.1 fL Normal 80.0-100.0 [facility] Comment on above: Order Comment: Specimen Type : BLOOD SPECIMENOrdering Facility: [facility] Address: [address] [place] [address] Performed By: #### 49196-7 # ###[facility]ATORYCLIA [id number] [facility], [address] [place] Monocytes (Bld) [#/Vol] 0.50 10*3/uL Normal <0.87 [facility] Comment on above: Order Comment: Specimen Type : BLOOD SPECIMENOrdering Facility: [facility] Address: [address] [place] [address] Performed By: #### 33828-0 # ###[facility]ORATORYCLIA [id number] [facility] [place], [address] Monocytes/100 WBC (Bld) 4.8 % Normal [facility] Comment on above: Order Comment: Specimen Type : BLOOD SPECIMENOrdering Facility: [facility] Address: [address] [address] Performed By: #### 00800-8 # ###[facility]ORATORYCLIA [id number] [facility] [place], [address] [place] Neutrophils (Bld) [#/Vol] 7.07 10*3/uL Normal 1.45-7.50 [facility] Comment on above: Order Comment: Specimen Type : BLOOD SPECIMENOrdering Facility: [facility] Address: [address] [address] Performed By: #### 46150-9 # ###[facility]ORATORYCLIA [id number] [facility] [address] [place] Neutrophils/100 WBC (Bld) 67.3 % Normal [facility] Comment on above: Order Comment: Specimen Type : BLOOD SPECIMENOrdering Facility: [facility] Address: [address] [address] Performed By: #### 13105-8 # ###[facility] LABORATORYCLIA [id number] [address] [place] Nucleated RBC (Bld) [#/Vol] 0.02 10*3/uL High <0.01 [facility] Comment on above: Order Comment: Specimen Type : BLOOD SPECIMENOrdering Facility: [facility] Address: [address] [address] Performed By: #### 33389-7 # ###[facility] LABORATORYCLIA [id number] [address] [place] Nucleated RBC/100 WBC (Bld) 0.2 /100 WBC Normal [facility] [Ratio] Comment on above: Order Comment: Specimen Type : BLOOD SPECIMENOrdering Facility: [facility] Address: [address] [address] Performed By: #### 92222-8 # ###[facility] LABORATORYCLIA [id number] [address] Platelet mean volume (Bld) 9.5 fL Normal 9.0-12.7 A [facility] [Entitic vol] Comment on above: Order Comment: Specimen Type : BLOOD SPECIMENOrdering Facility: [facility] Address: [address] Performed By: #### 40681-3 # ###[facility] LABORATORYCLIA [id number] [address] Platelets (Bld) [#/Vol] 337 10*3/uL Normal 150-400 [facility] Comment on above: Order Comment: Specimen Type : BLOOD SPECIMENOrdering Facility: [facility] Address: [address] [address] Performed By: #### 23136-1 # ###[facility] LABORATORYCLIA [id number] [facility] [place] [place] [address] [place] RBC (Bld) [#/Vol] 3.89 10*6/uL Low 3.90-5.20 [facility] Comment on above: Order Comment: Specimen Type : BLOOD SPECIMENOrdering Facility: [facility] Address: [address] [address] Performed By: #### 36864-7 # ###[facility] LABORATORYCLIA [id number] [facility] [place] [place] [address] [place] WBC (Bld) [#/Vol] 10.50 10*3/uL Normal 3.70-11.00 [facility] Comment on above: Order Comment: Specimen Type : BLOOD SPECIMENOrdering Facility: [facility] Address: [address] [address] Performed By: #### 30488-7 # ###[facility] LABORATORYCLIA [id number] [address] [place] ED Triage Note on 01-12-2023 ED Triage Note Normal [facility] CNPN on 01-06-2023 CNPN Normal [facility] CNCO on 01-03-2023 CNCO Letter Text Normal [facility] CNPN on 01-02-2023 CNPN Normal [facility] CNPTOUTREACH on 01-02-2023 CNPTOUTREACH Normal [facility] Basic metabolic 2000 panel on 3 Anion gap [Moles/Vol] 12 mmol/L Normal 9-18 [facility] Comment on above: Order Comment: Specimen Type : BLOOD SPECIMENOrdering Facility: [facility] Address: [address] [address] Performed By: #### 45928-7 # ###[facility] LABORATORYCLIA [id number] [facility] [place] [address] [place] Calcium [Mass/Vol] 9.1 mg/dL Normal 8.5-10.2 [facility] Comment on above: Order Comment: Specimen Type : BLOOD SPECIMENOrdering Facility: [facility] Address: [address] [address] Performed By: #### 07240-3 # ###[facility]ORATORYCLIA [id number] [place] [address] [place] Chloride [Moles/Vol] 97 mmol/L Normal 97-105 [facility] Comment on above: Order Comment: Specimen Type : BLOOD SPECIMENOrdering Facility: [facility] Address: [address] [address] Performed By: #### 08535-1 # ###[facility]ORATORYCLIA [id number] [place] [address] [place] CO2 [Moles/Vol] 29 mmol/L Normal 22-30 [facility] Comment on above: Order Comment: Specimen Type : BLOOD SPECIMENOrdering Facility: [facility] Address: [address] [address] Performed By: #### 38680-9 # ###[facility]ORATORYCLIA [id number] [facility] [address] [place] Creatinine [Mass/Vol] 0.90 mg/dL Normal 0.58-0.96 [facility] Comment on above: Order Comment: Specimen Type : BLOOD SPECIMENOrdering Facility: [facility] Address: [address] [place] [address] Performed By: #### 17306-7 # ###[facility]ORATORYCLIA [id number] [facility] [place] [address] [place] ESTIMATED GLOMERULAR 81 mL/min/1.73m??? Normal >=60 A [facility] Comment on above: Order Comment: Specimen Type : BLOOD SPECIMENOrdering Facility: [facility] Address: [address] [place] [address] Result Comment: Estimated Gl omerular Filtration Rate (eGFR) is calculated using the 2020 CK D-EPI creatinine equation. This equation utilizes serum crea tinine, sex, and age as parameters. The creatinine assay has traceab le calibration to isotope dilution-mass spectrometry. Refer to KDIGO guidelines for clinical interpretation. In patients with unstable renal function, e.g. those with acute kidney inju ry, the eGFR may not accurately reflect actual GFR. Performed By: #### 83670-9 # ###[facility] LABORATORYCLIA [id number] [place] [address] [place] Glucose [Mass/Vol] 151 mg/dL High 74-99 [facility] Comment on above: Order Comment: Specimen Type : BLOOD SPECIMENOrdering Facility: [facility] Address: [address] [place], [place] [address] Result Comment: The [place] Diabetes Association (ADA) provides guidance for cutoff values f or fasting glucose and random glucose. The ADA defines fasting as n o caloric intake for at least 8 hours. Fasting plasma glucose resul ts between 100 to 125 mg/dL indicate increased risk for diabetes (prediabetes).Fasting plasma glucose results greater than or equa l to 126 mg/dL meet the criteria for diagnosis of diabetes. In th e absence of unequivocal hyperglycemia, results should be confirmed by repeat testing. In a patient with classic symptoms of hypergly cemia or hyperglycemic crisis, random plasma glucose results great er than or equal to 200 mg/dL meet the criteria for diagnosis of di abetes.Reference: Standards of Medical Care in Diabetes 2016, [facility] Diabetes Association. Diabetes Care. 2016.39(Suppl 1). Performed By: #### 87863-5 # ###[facility] LABORATORYCLIA [id number] [place] [address] [place] Potassium [Moles/Vol] 4.2 mmol/L Normal 3.7-5.1 [facility] Comment on above: Order Comment: Specimen Type : BLOOD SPECIMENOrdering Facility: [facility] Address: [address] [place] [address] Performed By: #### 93661-4 # ###[facility] LABORATORYIA [id number] [address] [id number] [place] Sodium [Moles/Vol] 138 mmol/L Normal 136-144 [facility] Comment on above: Order Comment: Specimen Type : BLOOD SPECIMENOrdering Facility: [facility] Address: [address] [address] [address] Performed By: #### 41961-4 # ###[facility] LABORATORYCLIA [id number] [place] [address] [place] Urea nitrogen [Mass/Vol] 21 mg/dL Normal 7-21 [facility] Comment on above: Order Comment: Specimen Type : BLOOD SPECIMENOrdering Facility: [facility] Address: [address] [address] Performed By: #### 40570-0 # ###[facility] LABORATORYCLIA [id number] [place] [address] [facility] CASE MANAGEM on 01-01-2023 CASE MANAGEM Normal [facility] CBC panel Auto (Bld) on 01-01-2023 Erythrocyte distribution width 15.8 % High 11.5-15.0 [facility] (RBC) [Ratio] Comment on above: Order Comment: Specimen Type : BLOOD SPECIMENOrdering Facility: [facility] Address: [address] [address] Performed By: #### 52399-1 # ###[facility] LABORATORYCLIA [id number] [address] [place] Hematocrit (Bld) [Volume fraction] 34.8 % Low 36.0-4 6.0 [facility] Comment on above: Order Comment: Specimen Type : BLOOD SPECIMENOrdering Facility: [facility] Address: [address] [address] Performed By: #### 71188-2 # ###[facility] LABORATORYCLIA [id number] [facility] [place] [address] [place] Hemoglobin (Bld) [Mass/Vol] 10.2 g/dL Low 11.5-15.5 [facility] Comment on above: Order Comment: Specimen Type : BLOOD SPECIMENOrdering Facility: [facility] Address: [address] [address] Performed By: #### 30882-6 # ###[facility] LABORATORYCLIA [id number] [facility] [place], [address] [place] MCH (RBC) [Entitic mass] 27.8 pg Normal 26.0-34.0 [facility] Comment on above: Order Comment: Specimen Type : BLOOD SPECIMENOrdering Facility: [facility] Address: [address] [place] [address] Performed By: #### 62861-1 # ###[facility] LABORATORYCLIA [id number] [facility] [address] [place] MCHC (RBC) [Mass/Vol] 29.3 g/dL Low 30.5-36.0 [facility] Comment on above: Order Comment: Specimen Type : BLOOD SPECIMENOrdering Facility: [facility] Address: [address] [place] [address] Performed By: #### 76033-2 # ###[facility] LABORATORYCLIA [id number] [address] MCV (RBC) [Entitic vol] 94.8 fL Normal 80.0-100.0 [facility] Comment on above: Order Comment: Specimen Type : BLOOD SPECIMENOrdering Facility: [facility] Address: [address] [place] [address] Performed By: #### 00053-4 # ###[facility] LABORATORYCLIA [id number] [address] Nucleated RBC (Bld) [#/Vol] 0.02 10*3/uL High <0.01 [facility] Comment on above: Order Comment: Specimen Type : BLOOD SPECIMENOrdering Facility: [facility] Address: [address] [place] [address] Performed By: #### 87443-9 # ###[facility] LABORATORYCLIA [id number] [facility] [address] [place] Platelet mean volume (Bld) 9.4 fL Normal 9.0-12.7 [facility] [Entitic vol] Comment on above: Order Comment: Specimen Type : BLOOD SPECIMENOrdering Facility: [facility] Address: [address] [address] Performed By: #### 42369-6 # ###[facility] LABORATORYCLIA [id number] [facility] [place] [address] [facility] OF [place] Platelets (Bld) [#/Vol] 426 10*3/uL High 150-400 [facility] Comment on above: Order Comment: Specimen Type : BLOOD SPECIMENOrdering Facility: [facility] Address: [address] [address] Performed By: #### 30723-6 # ###[facility] LABORATORYCLIA [id number] [facility] [place] [address] [place] RBC (Bld) [#/Vol] 3.67 10*6/uL Low 3.90-5.20 [facility] Comment on above: Order Comment: Specimen Type : BLOOD SPECIMENOrdering Facility: [facility] Address: [address] [address] Performed By: #### 44823-6 # ###[facility] LABORATORYCLIA [id number] [facility], [place] [id number] [place] [address] [place] WBC (Bld) [#/Vol] 13.51 10*3/uL High 3.70-11.00 [facility] Comment on above: Order Comment: Specimen Type : BLOOD SPECIMENOrdering Facility: [facility] Address: [address] [address] Performed By: #### 43209-9 # ###[facility] LABORATORYCLIA [id number] [facility] [place] [address] [facility] OF [place] CNDS on 01-01-2023 CNDS Normal [facility] CONSULT PROG on 01-01-2023 CONSULT PROG Normal [facility] THERAPY NT on 01-01-2023 THERAPY NT Normal [facility] THERAPY NT Normal [facility] ALLIED HEALTH on 12-31-2022 ALLIED HEALTH Normal [facility] ALLIED HEALTH Normal [facility] Basic metabolic 2000 panel on 3 Anion gap [Moles/Vol] 14 mmol/L Normal 9-18 [facility] Comment on above: Order Comment: Specimen Type : BLOOD SPECIMENOrdering Facility: [facility] Address: [address] [place] [address] Performed By: #### 56418-0, 36995-5, 2776- ####[facility]ORATORYCLIA [id number] [place] [address] [place] Calcium [Mass/Vol] 9.4 mg/dL Normal 8.5-10.2 [facility] Comment on above: Order Comment: Specimen Type : BLOOD SPECIMENOrdering Facility: [facility] Address: [address] [place] [address] Performed By: #### 01257-6, 48438-1, 2776- ####[facility] LABORATORYCLIA [id number] [place] [address] [place] Chloride [Moles/Vol] 94 mmol/L Low 97-105 [facility] Comment on above: Order Comment: Specimen Type : BLOOD SPECIMENOrdering Facility: [facility] Address: [address] [place] [address] Performed By: #### 83744-6, 18110-7, 2776-12 ####[facility] LABORATORYCLIA [id number] [place] [address] [place] CO2 [Moles/Vol] 29 mmol/L Normal 22-30 [facility] Comment on above: Order Comment: Specimen Type : BLOOD SPECIMENOrdering Facility: [facility] Address: [address] [place] [address] Performed By: #### 62177-2, 95035-4, 2776-12 ####[facility] LABORATORYCLIA [id number] [place] [address] [place] Creatinine [Mass/Vol] 0.98 mg/dL High 0.58-0.96 [facility] Comment on above: Order Comment: Specimen Type : BLOOD SPECIMENOrdering Facility: [facility] Address: [address] [place] [address] Performed By: #### 55906-9, 48011-6, 2777-1 ####[facility]ITALIA [id number] [address] [place] ESTIMATED GLOMERULAR 73 mL/min/1.73m??? Normal >=60 A [facility] Center Comment on above: Order Comment: Specimen Type : BLOOD SPECIMENOrdering Facility: [facility] Address: [address] [place] [address] Result Comment: Estimated Gl omerular Filtration Rate (eGFR) is calculated using the 2020 CK D-EPI creatinine equation. This equation utilizes serum crea tinine, sex, and age as parameters. The creatinine assay has traceab le calibration to isotope dilution-mass spectrometry. Refer to KDIGO guidelines for clinical interpretation. In patients with unstable renal function, e.g. those with acute kidney inju ry, the eGFR may not accurately reflect actual GFR. Performed By: #### 03060-3, 43909-3, 2777-1 ####[facility] HOSPITALIA [id number] [place] [address] [place] Glucose [Mass/Vol] 173 mg/dL High 74-99 [facility] Comment on above: Order Comment: Specimen Type : BLOOD SPECIMENOrdering Facility: [facility] Address: [address] [place] [address] Result Comment: The [place] Diabetes Association (ADA) provides guidance for cutoff values f or fasting glucose and random glucose. The ADA defines fasting as n o caloric intake for at least 8 hours. Fasting plasma glucose resul ts between 100 to 125 mg/dL indicate increased risk for diabetes (prediabetes).Fasting plasma glucose results greater than or equa l to 126 mg/dL meet the criteria for diagnosis of diabetes. In th e absence of unequivocal hyperglycemia, results should be confirmed by repeat testing. In a patient with classic symptoms of hypergly cemia or hyperglycemic crisis, random plasma glucose results great er than or equal to 200 mg/dL meet the criteria for diagnosis of di abetes.Reference: Standards of Medical Care in Diabetes 2016, [facility] Diabetes Association. Diabetes Care. 2016.39(Suppl 1). Performed By: #### 81611-7, 86182-2, 7- ####[facility] LABORATORYCLIA [id number] [address] STATES OF [facility] Potassium [Moles/Vol] 3.9 mmol/L Normal 3.7-5.1 [facility] Comment on above: Order Comment: Specimen Type : BLOOD SPECIMENOrdering Facility: [facility] Address: [address] [address] Performed By: #### 76584-8, 56080-1, 277- ####[facility] LABORATORYCLIA [id number] [address] STATES OF [facility] Sodium [Moles/Vol] 137 mmol/L Normal 136-144 [facility] Comment on above: Order Comment: Specimen Type : BLOOD SPECIMENOrdering Facility: [facility] Address: [address] [place] [address] Performed By: #### 62425-8, 55556-8, 2776-12 ####[facility] [id number] [address] [place] Urea nitrogen [Mass/Vol] 19 mg/dL Normal 7-21 [facility] Comment on above: Order Comment: Specimen Type : BLOOD SPECIMENOrdering Facility: [facility] Address: [address] [place] [address] Performed By: #### 22130-8, 46742-2, 2776-12 ####[facility] LABORATORYCLIA [id number] [address] [place] CBC panel Auto (Bld) on 12-31-2022 Erythrocyte distribution width 15.9 % High 11.5-15.0 [facility] (RBC) [Ratio] Comment on above: Order Comment: Specimen Type : BLOOD SPECIMENOrdering Facility: [facility] Address: [address] [place] [address] Performed By: #### 43486-1 # ###[facility] LABORATORYCLIA [id number] [facility], [address] [place] Hematocrit (Bld) [Volume fraction] 34.1 % Low 36.0-4 6.0 [facility] Comment on above: Order Comment: Specimen Type : BLOOD SPECIMENOrdering Facility: [facility] Address: [address] [place] [address] Performed By: #### 89175-5 # ###[facility] LABORATORYCLIA [id number] [address] [place] Hemoglobin (Bld) [Mass/Vol] 10.1 g/dL Low 11.5-15.5 [facility] Comment on above: Order Comment: Specimen Type : BLOOD SPECIMENOrdering Facility: [facility] Address: [address] [place] [address] Performed By: #### 31451-9 # ###[facility] LABORATORYCLIA [id number] [address] [place] MCH (RBC) [Entitic mass] 27.8 pg Normal 26.0-34.0 [facility] Comment on above: Order Comment: Specimen Type : BLOOD SPECIMENOrdering Facility: [facility] Address: [address] [place] [address] Performed By: #### 14376-8 # ###[facility] LABORATORYCLIA [id number] [facility], [address] [place] MCHC (RBC) [Mass/Vol] 29.6 g/dL Low 30.5-36.0 [facility] Comment on above: Order Comment: Specimen Type : BLOOD SPECIMENOrdering Facility: [facility] Address: [address] [place] [address] Performed By: #### 29320-1 # ###[facility] LABORATORYCLIA [id number] [address] [place] MCV (RBC) [Entitic vol] 93.9 fL Normal 80.0-100.0 [facility] Comment on above: Order Comment: Specimen Type : BLOOD SPECIMENOrdering Facility: [facility] Address: [address] [place] [address] [place] [address] Performed By: #### 93499-6 # ###[facility]ORATORYCLIA [id number] [facility] [place], [address] [place] Nucleated RBC (Bld) [#/Vol] 10*3/uL Normal <0.01 [facility] Comment on above: Order Comment: Specimen Type : BLOOD SPECIMENOrdering Facility: [facility] Address: [address] [address] Performed By: #### 10159-9 # ###[facility] LABORATORYCLIA [id number] [facility] [place], [address] [place] Platelet mean volume (Bld) 9.2 fL Normal 9.0-12.7 [facility] [Entitic vol] Comment on above: Order Comment: Specimen Type : BLOOD SPECIMENOrdering Facility: [facility] Address: [address] [address] Performed By: #### 37819-8 # ###[facility] LABORATORYCLIA [id number] [facility], [address] [place] Platelets (Bld) [#/Vol] 435 10*3/uL High 150-400 [facility] Comment on above: Order Comment: Specimen Type : BLOOD SPECIMENOrdering Facility: [facility] Address: [address] [address] Performed By: #### 37407-5 # ###[facility] LABORATORYCLIA [id number] [facility], [address] [place] RBC (Bld) [#/Vol] 3.63 10*6/uL Low 3.90-5.20 [facility] Comment on above: Order Comment: Specimen Type : BLOOD SPECIMENOrdering Facility: [facility] Address: [address] [address] Performed By: #### 62606-7 # ###[facility] LABORATORYCLIA [id number] [facility] [place] [address] [place] WBC (Bld) [#/Vol] 15.84 10*3/uL High 3.70-11.00 [facility] Comment on above: Order Comment: Specimen Type : BLOOD SPECIMENOrdering Facility: [facility] Address: [address] [place] [address] Performed By: #### 10069-4 # ###[facility] LABORATORYCLIA [id number] [address] [place] CONSULT PROG on 12-31-2022 CONSULT PROG Normal [facility] CONSULT PROG Normal [facility] Calcium.ionized [Moles/Vol] on 12-31-19 23 Calcium.ionized (BldV) 1.16 mmol/L Normal 1.08-1.30 [facility] [Mass/Vol] [place] Comment on above: Order Comment: Specimen Type : BLOOD SPECIMENOrdering Facility: [facility] Address: [address] [place] [address] Performed By: #### 1994-0 ## ##[facility] LABORATORYCLIA [id number] [address] [place] Calcium.ionized adjusted to pH 1.12 mmol/L Normal 1.08-1.30 [facility] 7.4 (Bld) [Moles/Vol] [place] Comment on above: Order Comment: Specimen Type : BLOOD SPECIMENOrdering Facility: [facility] Address: [address] [place] [address] Performed By: #### 1994-0 ## ##[facility] LABORATORYCLIA [id number] [address] [place] Magnesium SerPl-mCnc on 12-31-2022 Magnesium [Mass/Vol] 1.5 mg/dL Low 1.7-2.3 [facility] Comment on above: Order Comment: Specimen Type : BLOOD SPECIMENOrdering Facility: [facility] Address: [address] [place] [address] Performed By: #### 92912-4, 39721-2, 2777-1 ####[facility] LABORATORYCLIA [id number] [place] [address] [facility] NURSING PROG on 12-31-2022 NURSING PROG Normal [facility] Phosphate SerPl-mCnc on 12-31-2022 Phosphate [Mass/Vol] 3.5 mg/dL Normal 2.7-4.8 [facility] Comment on above: Order Comment: Specimen Type : BLOOD SPECIMENOrdering Facility: [facility] Address: [address] [place] [address] Performed By: #### 25470-5, 83472-4, 2777-1 ####[facility] LABORATORYCLIA [id number] [address] THERAPY NT on 12-31-2022 THERAPY NT Normal [facility] XR CHEST 1V FRONTAL on 12-31-2022 XR CHEST 1V FRONTAL Normal [facility] ALLIED HEALTH on 12-30-2022 ALLIED HEALTH Normal [facility] ARTERIAL BLOOD GASES on 12-30-2022 Base excess Calc (Bld) [Moles/Vol] 8 mmol/L High 0-2 [facility] Comment on above: Order Comment: Specimen Type : ARTERIAL BLOOD SPECIMENOrdering Facility: [facility] Address: [address] [place] [address] Performed By: #### ALLBG ### #[facility] LABORATORYCLIA [id number] [address] OF [facility] Body temperature 97.34 [degF] Normal [facility] Comment on above: Order Comment: Specimen Type : ARTERIAL BLOOD SPECIMENOrdering Facility: [facility] Address: [address] [place] [address] Performed By: #### ALLBG ### #[facility] LABORATORYCLIA [id number] [address] [place] Calcium.ionized (BldV) 1.19 mmol/L Normal 1.08-1.30 [facility] [Mass/Vol] [place] Comment on above: Order Comment: Specimen Type : ARTERIAL BLOOD SPECIMENOrdering Facility: [facility] Address: [address] [address] Performed By: #### ALLBG ### #[facility] LABORATORYCLIA [id number] [address] [place] Calcium.ionized adjusted to pH 1.20 mmol/L Normal 1.08-1.30 [facility] 7.4 (BldA) [Moles/Vol] Genoveva burciaga Comment on above: Order Comment: Specimen Type : ARTERIAL BLOOD SPECIMENOrdering Facility: [facility] Address: [address] [address] Performed By: #### ALLBG ### #[facility] LABORATORYCLIA [id number] [address] [place] Carboxyhemoglobin (BldA) [Mass 1.3 % Normal 0.0-2.0 [facility]] Center Comment on above: Order Comment: Specimen Type : ARTERIAL BLOOD SPECIMENOrdering Facility: [facility] Address: [address] [address] Result Comment: Carboxyhemog lobin Reference Range for Smokers: 2.0-8.0% Performed By: #### ALLBG ### #[facility] LABORATORYCLIA [id number] [place] [address] [place] Chloride [Moles/Vol] 100 mmol/L Low 102-109 [facility] Comment on above: Order Comment: Specimen Type : ARTERIAL BLOOD SPECIMENOrdering Facility: [facility] Address: [address] [address] Performed By: #### ALLBG ### #[facility]ORATORYCLIA [id number] [address] [place] CO2 (Bld) [Partial pressure] 51 mm Hg High 36-46 [facility] Comment on above: Order Comment: Specimen Type : ARTERIAL BLOOD SPECIMENOrdering Facility: [facility] Address: [address] [address] Performed By: #### ALLBG ### #[facility] LABORATORYCLIA [id number] [facility] [id number] [place] [address] [place] CO2 [Moles/Vol] 30 mmol/L High 22-28 [facility] Comment on above: Order Comment: Specimen Type : ARTERIAL BLOOD SPECIMENOrdering Facility: [facility] Address: [address] [address] Performed By: #### ALLBG ### #[facility] LABORATORYCLIA [id number] [facility] [address] [place] CO2 adjusted to patient's actual 49 mmHg High 36-46 [facility] temperature (Bld) [Partial pressure] Comment on above: Order Comment: Specimen Type : ARTERIAL BLOOD SPECIMENOrdering Facility: [facility] Address: [address] [address] Performed By: #### ALLBG ### #[facility] LABORATORYCLIA [id number] [facility] [address] [place] Glucose [Mass/Vol] 168 mg/dL High 60-105 [facility] Comment on above: Order Comment: Specimen Type : ARTERIAL BLOOD SPECIMENOrdering Facility: [facility] Address: [address] [address] Performed By: #### ALLBG ### #[facility] LABORATORYCLIA [id number] [facility], [address] [place] HCO3 (Bld) [Moles/Vol] 33 mmol/L High 22-26 [facility] Comment on above: Order Comment: Specimen Type : ARTERIAL BLOOD SPECIMENOrdering Facility: [facility] Address: [address] [address] Performed By: #### ALLBG ### #[facility] LABORATORYCLIA [id number] [address] [place] Hematocrit (Bld) [Volume fraction] 30.2 % Low 36.0-4 6.0 [facility] Comment on above: Order Comment: Specimen Type : ARTERIAL BLOOD SPECIMENOrdering Facility: [facility] Address: [address] [address] Performed By: #### ALLBG ### #[facility] LABORATORYCLIA [id number] [facility], [address] OF [facility] Hemoglobin (Bld) [Mass/Vol] 9.8 g/dL Low 11.5-15.5 [facility] Comment on above: Order Comment: Specimen Type : ARTERIAL BLOOD SPECIMENOrdering Facility: [facility] Address: [address] [place] [address] Performed By: #### ALLBG ### #[facility] LABORATORYCLIA [id number] [facility] [place] [address] [place] [address] OF [place] Lactate [Moles/Vol] 0.8 mmol/L Normal 0.5-2.[address] [facility] Comment on above: Order Comment: Specimen Type : ARTERIAL BLOOD SPECIMENOrdering Facility: [facility] Address: [address] [place] [address] Performed By: #### ALLBG ### #[facility] LABORATORYCLIA [id number] [facility], [address] [place] Methemoglobin (Bld) [Mass fraction] 1.0 % Normal 0.0-1 .5 [facility] Comment on above: Order Comment: Specimen Type : ARTERIAL BLOOD SPECIMENOrdering Facility: [facility] Address: [address] [place] [address] Performed By: #### ALLBG ### #[facility] LABORATORYCLIA [id number] [facility], [address] [place] O2 THERAPY Ventilator Normal [facility] Comment on above: Order Comment: Specimen Type : ARTERIAL BLOOD SPECIMENOrdering Facility: [facility] Address: [address] [place] [address] Performed By: #### ALLBG ### #[facility]ORATORYCLIA [id number] [facility], [address] [place] Oxygen (Bld) [Partial pressure] 72 mm Hg Low 85-95 [facility] Comment on above: Order Comment: Specimen Type : ARTERIAL BLOOD SPECIMENOrdering Facility: [facility] Address: [address] [address] Performed By: #### ALLBG ### #[facility] LABORATORYCLIA [id number] [place] [address] [facility] Oxygen adjusted to patient's actual 69 mmHg Low 85-95 [facility] temperature (Bld) [Partial pressure] Comment on above: Order Comment: Specimen Type : ARTERIAL BLOOD SPECIMENOrdering Facility: [facility] Address: [address] [address] Performed By: #### ALLBG ### #[facility] LABORATORYCLIA [id number] [facility] [place] [id number] [place] [address] Oxyhemoglobin (BldA) [Mass fraction] 91 % Low 95-9 8 [facility] Comment on above: Order Comment: Specimen Type : ARTERIAL BLOOD SPECIMENOrdering Facility: [facility] Address: [address] [address] Performed By: #### ALLBG ### #[facility] LABORATORYCLIA [id number] [place] [address] [facility] pH (Bld) 7.42 [pH] Normal 7.35-7.45 [facility] Comment on above: Order Comment: Specimen Type : ARTERIAL BLOOD SPECIMENOrdering Facility: [facility] Address: [address] [address] Performed By: #### ALLBG ### #[facility] LABORATORYCLIA [id number] [place] [address] [facility] pH adjusted to patient's actual 7.43 Normal 7.35-7.45 [facility] temperature (Bld) Comment on above: Order Comment: Specimen Type : ARTERIAL BLOOD SPECIMENOrdering Facility: [facility] Address: [address] [address] Performed By: #### ALLBG ### #[facility] LABORATORYCLIA [id number] [place] [address] [facility] Potassium [Moles/Vol] 3.9 mmol/L Normal 3.5-5.0 [facility] Comment on above: Order Comment: Specimen Type : ARTERIAL BLOOD SPECIMENOrdering Facility: [facility] Address: [address] [address] Performed By: #### ALLBG ### #[facility] LABORATORYCLIA [id number] [address] [place] Sodium [Moles/Vol] 137 mmol/L Normal 136-144 [facility] Comment on above: Order Comment: Specimen Type : ARTERIAL BLOOD SPECIMENOrdering Facility: [facility] Address: [address] [address] Performed By: #### ALLBG ### #[facility] LABORATORYCLIA [id number] [place] [id number] [place] Basic metabolic 2000 panel on 3 Anion gap [Moles/Vol] 11 mmol/L Normal 9-18 [facility] Comment on above: Order Comment: Specimen Type : BLOOD SPECIMENOrdering Facility: [facility] Address: [address] [address] Performed By: #### 90124-6, 2776-12, ####[facility]ORATORYCLIA [id number] [place] [address] [place] Calcium [Mass/Vol] 9.4 mg/dL Normal 8.5-10.2 [facility] Comment on above: Order Comment: Specimen Type : BLOOD SPECIMENOrdering Facility: [facility] Address: [address] [address] Performed By: #### 48442-5, 2776-12, ####[facility] LABORATORYCLIA [id number] [address] [place] Chloride [Moles/Vol] 94 mmol/L Low 97-105 [facility] Comment on above: Order Comment: Specimen Type : BLOOD SPECIMENOrdering Facility: [facility] Address: [address] [address] Performed By: #### 19128-2, 2776-12, ####[facility]ITALCLIA [id number] [place] [address] [place] CO2 [Moles/Vol] 33 mmol/L High 22-30 [facility] Comment on above: Order Comment: Specimen Type : BLOOD SPECIMENOrdering Facility: [facility] Address: [address] [place] [address] Performed By: #### 61017-0, 2776-12, ####[facility] HOSPITALIA [id number] [place] [id number] [place] Creatinine [Mass/Vol] 1.13 mg/dL High 0.58-0.96 [facility] Comment on above: Order Comment: Specimen Type : BLOOD SPECIMENOrdering Facility: [facility] Address: [address] [place] [address] Performed By: #### 08694-0, 2776-12, ####[facility] HOSPITALIA [id number] [address] OF [facility] ESTIMATED GLOMERULAR 61 mL/min/1.73m??? Normal >=60 [facility] FILTRATION RATE Center Comment on above: Order Comment: Specimen Type : BLOOD SPECIMENOrdering Facility: [facility] Address: [address] [place] [address] Result Comment: Estimated Gl omerular Filtration Rate (eGFR) is calculated using the 2020 CK D-EPI creatinine equation. This equation utilizes serum crea tinine, sex, and age as parameters. The creatinine assay has traceab le calibration to isotope dilution-mass spectrometry. Refer to KDIGO guidelines for clinical interpretation. In patients with unstable renal function, e.g. those with acute kidney inju ry, the eGFR may not accurately reflect actual GFR. Performed By: #### 04410-0, 2776-12, ####[facility] LABORATORYCLIA [id number] [place] [address] [place] Glucose [Mass/Vol] 155 mg/dL High 74-99 [facility] Comment on above: Order Comment: Specimen Type : BLOOD SPECIMENOrdering Facility: [facility] Address: [address] [address] Result Comment: The [place] Diabetes Association (ADA) provides guidance for cutoff values f or fasting glucose and random glucose. The ADA defines fasting as n o caloric intake for at least 8 hours. Fasting plasma glucose resul ts between 100 to 125 mg/dL indicate increased risk for diabetes (prediabetes).Fasting plasma glucose results greater than or equa l to 126 mg/dL meet the criteria for diagnosis of diabetes. In th e absence of unequivocal hyperglycemia, results should be confirmed by repeat testing. In a patient with classic symptoms of hypergly cemia or hyperglycemic crisis, random plasma glucose results great er than or equal to 200 mg/dL meet the criteria for diagnosis of di abetes.Reference: Standards of Medical Care in Diabetes 2016, [facility] Diabetes Association. Diabetes Care. 2016.39(Suppl 1). Performed By: #### 30894-1, 27705-31, ####MNsimpleFLOORS [facility] LABORATORYCLIA [id number] [place] [address] [place] Potassium [Moles/Vol] 3.4 mmol/L Low 3.7-5.1 [facility] Comment on above: Order Comment: Specimen Type : BLOOD SPECIMENOrdering Facility: [facility] Address: [address] [id number] Performed By: #### 17619-2, 27705-31, ####[facility]POCAH[facility] LABORATORYCLIA [id number] [place] [address] [place] Sodium [Moles/Vol] 138 mmol/L Normal 136-144 [facility] Comment on above: Order Comment: Specimen Type : BLOOD SPECIMENOrdering Facility: [facility] Address: [address] [facility]OSPITALMonae CHAKRABORTY[address] Performed By: #### 78162-0, 27705-31, ####Endymed [facility] LABORATORYCLIA [id number] [place] [address] [place] Urea nitrogen [Mass/Vol] 22 mg/dL High 7-21 [facility] Comment on above: Order Comment: Specimen Type : BLOOD SPECIMENOrdering Facility: [facility] Address: [address] [place] [address] Performed By: #### 43653-8, 2777-1, 95989-4 ####[facility] LABORATORYCLIA [id number] [address] [place] CASE MANAGEM on 12-30-2022 CASE MANAGEM Normal [facility] CBC panel Auto (Bld) on 12-30-2022 Erythrocyte distribution width 16.1 % High 11.5-15.0 [facility] (RBC) [Ratio] Comment on above: Order Comment: Specimen Type : BLOOD SPECIMENOrdering Facility: [facility] Address: [address] [place] [address] Performed By: #### 10844-4 # ###[facility] LABORATORYCLIA [id number] [address] [place] Hematocrit (Bld) [Volume fraction] 30.3 % Low 36.0-4 6.0 [facility] Comment on above: Order Comment: Specimen Type : BLOOD SPECIMENOrdering Facility: [facility] Address: [address] [place] [address] Performed By: #### 73866-2 # ###[facility] LABORATORYCLIA [id number] [address] [place] Hemoglobin (Bld) [Mass/Vol] 9.0 g/dL Low 11.5-15.5 [facility] Comment on above: Order Comment: Specimen Type : BLOOD SPECIMENOrdering Facility: [facility] Address: [address] [place] [address] Performed By: #### 37311-9 # ###[facility] LABORATORYCLIA [id number] [place] [address] [place] MCH (RBC) [Entitic mass] 27.8 pg Normal 26.0-34.0 [facility] Comment on above: Order Comment: Specimen Type : BLOOD SPECIMENOrdering Facility: [facility] Address: [address] [address] Performed By: #### 40955-6 # ###[facility] LABORATORYCLIA [id number] [facility], [address] STATES [facility] MCHC (RBC) [Mass/Vol] 29.7 g/dL Low 30.5-36.0 [facility] Comment on above: Order Comment: Specimen Type : BLOOD SPECIMENOrdering Facility: [facility] Address: [address] [address] Performed By: #### 07060-6 # ###[facility] LABORATORYCLIA [id number] [facility], [address] [place] MCV (RBC) [Entitic vol] 93.5 fL Normal 80.0-100.0 [facility] Comment on above: Order Comment: Specimen Type : BLOOD SPECIMENOrdering Facility: [facility] Address: [address] [address] Performed By: #### 47490-7 # ###[facility] LABORATORYCLIA [id number] [facility], [address] [place] Nucleated RBC (Bld) [#/Vol] 10*3/uL Normal <0.01 [facility] Comment on above: Order Comment: Specimen Type : BLOOD SPECIMENOrdering Facility: [facility] Address: [address] [address] Performed By: #### 26126-4 # ###[facility] LABORATORYCLIA [id number] [facility] EN[facility] CENTERRON, [address] [place] Platelet mean volume (Bld) 9.5 fL Normal 9.0-12.7 [facility] [Entitic vol] Comment on above: Order Comment: Specimen Type : BLOOD SPECIMENOrdering Facility: [facility] Address: [address] [address] Performed By: #### 72826-1 # ###[facility]ORATORYCLIA [id number] [facility] [place] [address] [place] Platelets (Bld) [#/Vol] 401 10*3/uL High 150-400 [facility] Comment on above: Order Comment: Specimen Type : BLOOD SPECIMENOrdering Facility: [facility] Address: [address] [place] [address] Performed By: #### 32799-0 # ###[facility] LABORATORYCLIA [id number] [facility] [place] [place] [address] [place] RBC (Bld) [#/Vol] 3.24 10*6/uL Low 3.90-5.20 [facility] Comment on above: Order Comment: Specimen Type : BLOOD SPECIMENOrdering Facility: [facility] Address: [address] [place] [address] Performed By: #### 29434-5 # ###[facility] LABORATORYCLIA [id number] [facility], [address] [place] WBC (Bld) [#/Vol] 14.20 10*3/uL High 3.70-11.00 [facility] Comment on above: Order Comment: Specimen Type : BLOOD SPECIMENOrdering Facility: [facility] Address: [address] [place] [address] Performed By: #### 00227-9 # ###[facility] LABORATORYCLIA [id number] [facility] ENUEAK[place], [facility] [facility] CONSULT on 12-30-2022 CONSULT Normal [facility] CONSULT PROG on 12-30-2022 CONSULT PROG Normal [facility] Calcium.ionized [Moles/Vol] on 12-30-19 23 Calcium.ionized (BldV) 1.19 mmol/L Normal 1.08-1.30 [facility] [Mass/Vol] [place] Comment on above: Order Comment: Specimen Type : BLOOD SPECIMENOrdering Facility: [facility] Address: [address] [place] [address] Performed By: #### 1995-0 ## ##[facility] LABORATORYCLIA [id number] [address] [place] Calcium.ionized adjusted to pH 1.23 mmol/L Normal 1.08-1.30 [facility] 7.4 (Bld) [Moles/Vol] Center Comment on above: Order Comment: Specimen Type : BLOOD SPECIMENOrdering Facility: [facility] Address: [address] [place] [address] Performed By: #### 1995-0 ## ##[facility] LABORATORYCLIA [id number] [address] [place] Magnesium SerPl-mCnc on 12-30-2022 Magnesium [Mass/Vol] 1.7 mg/dL Normal 1.7-2.3 [facility] Comment on above: Order Comment: Specimen Type : BLOOD SPECIMENOrdering Facility: [facility] Address: [address] [place] [address] Performed By: #### 19222-2, 27705-31, ####[facility]ITALCLIA [id number] [place] [address] [place] NUTRITION on 12-30-2022 NUTRITION Normal [facility] Phosphate SerPl-mCnc on 12-30-2022 Phosphate [Mass/Vol] 4.2 mg/dL Normal 2.7-4.8 [facility] Comment on above: Order Comment: Specimen Type : BLOOD SPECIMENOrdering Facility: [facility] Address: [address] [place] [address] Performed By: #### 75615-1, 27705-31, ####[facility]PITALCLIA [id number] [place] [address] [place] XR CHEST 1V FRONTAL on 12-30-2022 XR CHEST 1V FRONTAL Normal [facility] ALLIED HEALTH on 12-29-2022 ALLIED HEALTH Normal [facility] Bacteria Spec Resp Cult on 12-29-2022 Bacteria identified CULTURE, RESPIRATORY: Normal [facility] Respiratory culture Nom No growth 2 days [facility] (Unsp spec) GRAM STAIN: No organisms seen Many Polymorphonuclear leukocytes Rare Epithelial cells Comment on above: Performed By: #### 78361-4 # ###[facility] LABORATORYCLIA [id number] [place] [address] [place] Basic metabolic 2000 panel on 3 Anion gap [Moles/Vol] 10 mmol/L Normal 9-18 [facility] Comment on above: Order Comment: Specimen Type : BLOOD SPECIMENOrdering Facility: [facility] Address: [address] [place] [address] Performed By: #### 56317-1, , 2776-12 ####[facility] LABORATORYCLIA [id number] [place] [address] [place] Calcium [Mass/Vol] 9.5 mg/dL Normal 8.5-10.2 [facility] Comment on above: Order Comment: Specimen Type : BLOOD SPECIMENOrdering Facility: [facility] Address: [address] [place] [address] Performed By: #### 66704-9, , 2776-12 ####[facility] LABORATORYCLIA [id number] [place] [address] [place] Chloride [Moles/Vol] 94 mmol/L Low 97-105 [facility] Comment on above: Order Comment: Specimen Type : BLOOD SPECIMENOrdering Facility: [facility] Address: [address] [place] [address] Performed By: #### 87638-7, , 2776-12 ####[facility] LABORATORYCLIA [id number] [place] [address] [place] CO2 [Moles/Vol] 33 mmol/L High 22-30 [facility] Comment on above: Order Comment: Specimen Type : BLOOD SPECIMENOrdering Facility: [facility] Address: [address] [place] [address] Performed By: #### 30818-2, , 2776-12 ####[facility] LABORATORYCLIA [id number] [place] [address] [place] Creatinine [Mass/Vol] 1.17 mg/dL High 0.58-0.96 [facility] Comment on above: Order Comment: Specimen Type : BLOOD SPECIMENOrdering Facility: [facility] Address: [place] [address] Performed By: #### 83254-5, , 2776-12 ####[facility]PITALCLIA [id number] [place] [address] [place] ESTIMATED GLOMERULAR 59 mL/min/1.73m??? Low >=60 A [facility] RATE Center Comment on above: Order Comment: Specimen Type : BLOOD SPECIMENOrdering Facility: [facility] Address: [address] [place] [address] Result Comment: Estimated Gl omerular Filtration Rate (eGFR) is calculated using the 2020 CK D-EPI creatinine equation. This equation utilizes serum crea tinine, sex, and age as parameters. The creatinine assay has traceab le calibration to isotope dilution-mass spectrometry. Refer to KDIGO guidelines for clinical interpretation. In patients with unstable renal function, e.g. those with acute kidney inju ry, the eGFR may not accurately reflect actual GFR. Performed By: #### 26547-3, , 2776-12 ####[facility] HOSPITALIA [id number] [place] [address] [place] Glucose [Mass/Vol] 267 mg/dL High 74-99 [facility] Comment on above: Order Comment: Specimen Type : BLOOD SPECIMENOrdering Facility: [facility] Address: [address] Result Comment: The [place] Diabetes Association (ADA) provides guidance for cutoff values f or fasting glucose and random glucose. The ADA defines fasting as n o caloric intake for at least 8 hours. Fasting plasma glucose resul ts between 100 to 125 mg/dL indicate increased risk for diabetes (prediabetes).Fasting plasma glucose results greater than or equa l to 126 mg/dL meet the criteria for diagnosis of diabetes. In th e absence of unequivocal hyperglycemia, results should be confirmed by repeat testing. In a patient with classic symptoms of hypergly cemia or hyperglycemic crisis, random plasma glucose results great er than or equal to 200 mg/dL meet the criteria for diagnosis of di abetes.Reference: Standards of Medical Care in Diabetes 2016, [employer] [place] [employer]. Diabetes Care. 2016.39(Suppl 1). Performed By: #### 52889-3, , 2776-12 ####[facility] LABORATORYCLIA [id number] [place] [address] [place] Potassium [Moles/Vol] 4.2 mmol/L Normal 3.7-5.1 [facility] Comment on above: Order Comment: Specimen Type : BLOOD SPECIMENOrdering Facility: [facility] Address: [address] [place] [address] Performed By: #### 11595-5, , 2776-12 ####[facility] [id number] [address] STATES OF [facility] Sodium [Moles/Vol] 137 mmol/L Normal 136-144 [facility] Comment on above: Order Comment: Specimen Type : BLOOD SPECIMENOrdering Facility: [facility] Address: [address] [place] [address] Performed By: #### 33538-3, , 2776-12 ####[facility] [id number] [address] [place] Urea nitrogen [Mass/Vol] 19 mg/dL Normal 7-21 [facility] Comment on above: Order Comment: Specimen Type : BLOOD SPECIMENOrdering Facility: [facility] Address: [address] [address] Performed By: #### 91566-2, , 2776-12 ####[facility] LABORATORYCLIA [id number] [address] [place] CBC panel Auto (Bld) on 12-29-2022 Erythrocyte distribution width 16.2 % High 11.5-15.0 [facility] (RBC) [Ratio] Comment on above: Order Comment: Specimen Type : BLOOD SPECIMENOrdering Facility: [facility] Address: [address] [address] Performed By: #### 77024-4 # ###[facility] LABORATORYCLIA [id number] [address] Hematocrit (Bld) [Volume fraction] 29.8 % Low 36.0-4 6.0 [facility] Comment on above: Order Comment: Specimen Type : BLOOD SPECIMENOrdering Facility: [facility] Address: [address] [address] Performed By: #### 89464-8 # ###[facility] LABORATORYCLIA [id number] [address] Hemoglobin (Bld) [Mass/Vol] 8.9 g/dL Low 11.5-15.5 [facility] Comment on above: Order Comment: Specimen Type : BLOOD SPECIMENOrdering Facility: [facility] Address: [address] [place] [address] Performed By: #### 69898-4 # ###[facility] LABORATORYCLIA [id number] [address] STATES OF [facility] MCH (RBC) [Entitic mass] 28.0 pg Normal 26.0-34.0 [facility] Comment on above: Order Comment: Specimen Type : BLOOD SPECIMENOrdering Facility: [facility] Address: [address] [address] Performed By: #### 77988-4 # ###[facility] LABORATORYCLIA [id number] [address] [place] MCHC (RBC) [Mass/Vol] 29.9 g/dL Low 30.5-36.0 [facility] Comment on above: Order Comment: Specimen Type : BLOOD SPECIMENOrdering Facility: [facility] Address: [address] [address] Performed By: #### 70524-9 # ###[facility] LABORATORYCLIA [id number] [address] MCV (RBC) [Entitic vol] 93.7 fL Normal 80.0-100.0 [facility] Comment on above: Order Comment: Specimen Type : BLOOD SPECIMENOrdering Facility: [facility] Address: [address] [address] Performed By: #### 77863-7 # ###[facility] LABORATORYCLIA [id number] [facility] [place] [place] [address] [place] Nucleated RBC (Bld) [#/Vol] 0.02 10*3/uL High <0.01 [facility] Comment on above: Order Comment: Specimen Type : BLOOD SPECIMENOrdering Facility: [facility] Address: [address] [address] Performed By: #### 35103-7 # ###[facility] LABORATORYCLIA [id number] [facility] [place] [address] [place] Platelet mean volume (Bld) 9.5 fL Normal 9.0-12.7 [facility] [Entitic vol] Comment on above: Order Comment: Specimen Type : BLOOD SPECIMENOrdering Facility: [facility] Address: [address] [address] Performed By: #### 10828-6 # ###[facility] LABORATORYCLIA [id number] [facility] [place], [address] [place] Platelets (Bld) [#/Vol] 394 10*3/uL Normal 150-400 [facility] Comment on above: Order Comment: Specimen Type : BLOOD SPECIMENOrdering Facility: [facility] Address: [address] Performed By: #### 76576-9 # ###[facility] LABORATORYCLIA [id number] [facility] [place], [place] [address] [place] RBC (Bld) [#/Vol] 3.18 10*6/uL Low 3.90-5.20 [facility] Comment on above: Order Comment: Specimen Type : BLOOD SPECIMENOrdering Facility: [facility] Address: [address] Performed By: #### 29050-3 # ###[facility] LABORATORYCLIA [id number] [place] [address] [place] WBC (Bld) [#/Vol] 16.20 10*3/uL High 3.70-11.00 [facility] Comment on above: Order Comment: Specimen Type : BLOOD SPECIMENOrdering Facility: [facility] Address: [address] [id number] Performed By: #### 01089-6 # ###[facility] LABORATORYCLIA [id number] [address] [place] CONSULT PROG on 12-29-2022 CONSULT PROG Normal [facility] CONSULT PROG Normal [facility] Calcium.ionized [Moles/Vol] on 12-29-19 23 Calcium.ionized (BldV) 1.16 mmol/L Normal 1.08-1.30 [facility] [Mass/Vol] [place] Comment on above: Order Comment: Specimen Type : BLOOD SPECIMENOrdering Facility: [facility] Address: [address] [id number] Performed By: #### 1994-0 ## ##[facility]ITALCLIA [id number] [address] [place] Calcium.ionized adjusted to pH 1.20 mmol/L Normal 1.08-1.30 [facility] 7.4 (Bld) [Moles/Vol] [place] Comment on above: Order Comment: Specimen Type : BLOOD SPECIMENOrdering Facility: [facility] Address: [address] [id number] Performed By: #### 1994- ## ##[facility] LABORATORYCLIA [id number] [address] [place] Magnesium SerPl-mCnc on 12-29-2022 Magnesium [Mass/Vol] 1.6 mg/dL Low 1.7-2.3 [facility] Comment on above: Order Comment: Specimen Type : BLOOD SPECIMENOrdering Facility: [facility] Address: [place] [address] Performed By: #### 54672-3, 45951-8, 2776-12 ####[facility] LABORATORYCLIA [id number] [place] [address] [place] Phosphate SerPl-mCnc on 12-29-2022 Phosphate [Mass/Vol] 4.6 mg/dL Normal 2.7-4.8 [facility] Comment on above: Order Comment: Specimen Type : BLOOD SPECIMENOrdering Facility: [facility] Address: [address] [address] Performed By: #### 31283-6, 11841-1, 2776-12 ####[facility]ORATORYCLIA [id number] [place] [address] [place] XR CHEST 1V FRONTAL on 12-29-2022 XR CHEST 1V FRONTAL Normal [facility] Basic metabolic 2000 panel on Anion gap [Moles/Vol] 11 mmol/L Normal 9-18 [facility] Comment on above: Order Comment: Specimen Type : BLOOD SPECIMENOrdering Facility: [facility] Address: [address] [place] [address] Performed By: #### 87880-7, 2776-12 ####[facility]ORATORYCLIA [id number] [place] [address] [place] Calcium [Mass/Vol] 9.0 mg/dL Normal 8.5-10.2 [facility] Comment on above: Order Comment: Specimen Type : BLOOD SPECIMENOrdering Facility: [facility] Address: [address] [place] [address] Performed By: #### 52766-7, 2776-12 ####[facility]ORATORYCLIA [id number] [place] [address] [place] Chloride [Moles/Vol] 94 mmol/L Low 97-105 [facility] Comment on above: Order Comment: Specimen Type : BLOOD SPECIMENOrdering Facility: [facility] Address: [address] [place] [address] Performed By: #### 32079-2, 2776-12 ####[facility] LABORATORYCLIA [id number] [place] [address] [place] CO2 [Moles/Vol] 30 mmol/L Normal 22-30 [facility] Comment on above: Order Comment: Specimen Type : BLOOD SPECIMENOrdering Facility: [facility] Address: [address] [place] [address] Performed By: #### 62961-9, 2776-12 ####[facility] LABORATORYCLIA [id number] [place], [place] [id number] [place] [address] [place] Creatinine [Mass/Vol] 1.10 mg/dL High 0.58-0.96 [facility] Comment on above: Order Comment: Specimen Type : BLOOD SPECIMENOrdering Facility: [facility] Address: [address] [place] [address] Performed By: #### 17322-6, 2776-12 ####[facility]PITALIA [id number] [address] [place] ESTIMATED GLOMERULAR 63 mL/min/1.73m??? Normal >=60 [facility] Comment on above: Order Comment: Specimen Type : BLOOD SPECIMENOrdering Facility: [facility] Address: [address] [place] [address] Result Comment: Estimated Gl omerular Filtration Rate (eGFR) is calculated using the 2020 D-EPI creatinine equation. This equation utilizes serum crea tinine, sex, and age as parameters. The creatinine assay has traceab le calibration to isotope dilution-mass spectrometry. Refer to KDIGO guidelines for clinical interpretation. In patients with unstable renal function, e.g. those with acute kidney inju ry, the eGFR may not accurately reflect actual GFR. Performed By: #### 76801-8, 2776-12 ####[facility] LABORATORYCLIA [id number] [facility] [place] [address] [place] Glucose [Mass/Vol] 247 mg/dL High 74-99 [facility] Comment on above: Order Comment: Specimen Type : BLOOD SPECIMENOrdering Facility: [facility] Address: [address] [place] [address] Result Comment: The [place] Diabetes Association (ADA) provides guidance for cutoff values f or fasting glucose and random glucose. The ADA defines fasting as n o caloric intake for at least 8 hours. Fasting plasma glucose resul ts between 100 to 125 mg/dL indicate increased risk for diabetes (prediabetes).Fasting plasma glucose results greater than or equa l to 126 mg/dL meet the criteria for diagnosis of diabetes. In th e absence of unequivocal hyperglycemia, results should be confirmed by repeat testing. In a patient with classic symptoms of hypergly cemia or hyperglycemic crisis, random plasma glucose results great er than or equal to 200 mg/dL meet the criteria for diagnosis of di abetes.Reference: Standards of Medical Care in Diabetes 2016, [employer] [place] Diabetes [employer]. Diabetes Care. 2016.39(Suppl 1). Performed By: #### 29207-0, 2777- ####[facility] LABORATORYCLIA [id number] [place] [address] [place] Potassium [Moles/Vol] 4.2 mmol/L Normal 3.7-5.1 [facility] Comment on above: Order Comment: Specimen Type : BLOOD SPECIMENOrdering Facility: [facility] Address: [address] [place] [address] Performed By: #### 28186-8, 2776-12 ####[facility] LABORATORYCLIA [id number] [place] [address] [place] Sodium [Moles/Vol] 135 mmol/L Low 136-144 [facility] Comment on above: Order Comment: Specimen Type : BLOOD SPECIMENOrdering Facility: [facility] Address: [address] [place], [place] [address] Performed By: #### 63918-2, 27705-31 ####[facility] LABORATORYCLIA [id number] [place] [address] [place] Urea nitrogen [Mass/Vol] 11 mg/dL Normal 7-21 [facility] Comment on above: Order Comment: Specimen Type : BLOOD SPECIMENOrdering Facility: [facility] Address: [address] [address] Performed By: #### 48311-4, 2777-1 ####[facility] LABORATORYCLIA [id number] [address] CBC panel Auto (Bld) on 12-28-2022 Erythrocyte distribution width 16.3 % High 11.5-15.0 [facility] (RBC) [Ratio] Comment on above: Order Comment: Specimen Type : BLOOD SPECIMENOrdering Facility: [facility] Address: [address] [address] Performed By: #### 85371-7 # ###[facility] LABORATORYCLIA [id number] [address] OF [facility] Hematocrit (Bld) [Volume fraction] 29.8 % Low 36.0-4 6.0 [facility] Comment on above: Order Comment: Specimen Type : BLOOD SPECIMENOrdering Facility: [facility] Address: [address] [address] Performed By: #### 78004-7 # ###[facility] LABORATORYCLIA [id number] [address] Hemoglobin (Bld) [Mass/Vol] 8.9 g/dL Low 11.5-15.5 [facility] Comment on above: Order Comment: Specimen Type : BLOOD SPECIMENOrdering Facility: [facility] Address: [address] [address] Performed By: #### 30083-0 # ###[facility] LABORATORYCLIA [id number] [address] OF [place] MCH (RBC) [Entitic mass] 28.2 pg Normal 26.0-34.0 [facility] Comment on above: Order Comment: Specimen Type : BLOOD SPECIMENOrdering Facility: [facility] Address: [address] [address] Performed By: #### 37869-7 # ###[facility] LABORATORYCLIA [id number] [facility], [address] [place] MCHC (RBC) [Mass/Vol] 29.9 g/dL Low 30.5-36.0 [facility] Comment on above: Order Comment: Specimen Type : BLOOD SPECIMENOrdering Facility: [facility] Address: [address] [place] [address] Performed By: #### 29192-4 # ###[facility] LABORATORYCLIA [id number] [facility] [place], [address] [place] MCV (RBC) [Entitic vol] 94.3 fL Normal 80.0-100.0 [facility] Comment on above: Order Comment: Specimen Type : BLOOD SPECIMENOrdering Facility: [facility] Address: [address] [place] [address] Performed By: #### 68393-9 # ###[facility] LABORATORYCLIA [id number] [facility], [address] [place] Nucleated RBC (Bld) [#/Vol] 0.02 10*3/uL High <0.01 [facility] Comment on above: Order Comment: Specimen Type : BLOOD SPECIMENOrdering Facility: [facility] Address: [address] [place] [address] Performed By: #### 25044-9 # ###[facility] LABORATORYCLIA [id number] [facility], [address] [place] Platelet mean volume (Bld) 9.4 fL Normal 9.0-12.7 [facility] [Entitic vol] Comment on above: Order Comment: Specimen Type : BLOOD SPECIMENOrdering Facility: [facility] Address: [address] [place] [address] Performed By: #### 18424-5 # ###[facility] LABORATORYCLIA [id number] [facility] [place] Platelets (Bld) [#/Vol] 359 10*3/uL Normal 150-400 [facility] Comment on above: Order Comment: Specimen Type : BLOOD SPECIMENOrdering Facility: [facility] Address: [address] [place] [address] [place] [address] Performed By: #### 54951-4 # ###[facility] LABORATORYCLIA [id number] [facility], [facility]307 [place] RBC (Bld) [#/Vol] 3.16 10*6/uL Low 3.90-5.20 [facility] Comment on above: Order Comment: Specimen Type : BLOOD SPECIMENOrdering Facility: [facility] Address: [address] [address] Performed By: #### 07860-4 # ###[facility] LABORATORYCLIA [id number] [place] [id number] [facility] WBC (Bld) [#/Vol] 16.86 10*3/uL High 3.70-11.00 [facility] Comment on above: Order Comment: Specimen Type : BLOOD SPECIMENOrdering Facility: [facility] Address: [address] [place] [address] Performed By: #### 06039-8 # ###[facility] LABORATORYCLIA [id number] [address] OF [facility] CONSULT PROG on 12-28-2022 CONSULT PROG [facility] [place] [facility] Calcium.ionized [Moles/Vol] on 12-28-19 23 Calcium.ionized (BldV) [Mass/Vol] 0.99 mmol/L Low 1.08-1. 30 [facility] Comment on above: Order Comment: Specimen Type : BLOOD SPECIMENOrdering Facility: [facility] Address: [address] [place] [address] Performed By: #### 1995-0 ## ##[facility] LABORATORYCLIA [id number] [address] [place] Calcium.ionized adjusted to pH 7.4 1.07 mmol/L Low 1.08-1 .30 [facility] (d) [Moles/Vol] Center Comment on above: Order Comment: Specimen Type : BLOOD SPECIMENOrdering Facility: [facility] Address: [address] [place] [address] Performed By: #### 1995-0 ## ##[facility] LABORATORYCLIA [id number] [place] [address] [facility] Magnesium SerPl-mCnc on 12-28-2022 Magnesium [Mass/Vol] 1.5 mg/dL Low 1.7-2.3 [facility] Comment on above: Order Comment: Specimen Type : BLOOD SPECIMENOrdering Facility: [facility] Address: [address] [place] [address] Performed By: #### 26782-5 # ###[facility] LABORATORYCLIA [id number] [address] [place] NURSING PROG on 12-28-2022 NURSING PROG Normal [facility] Phosphate SerPl-mCnc on 12-28-2022 Phosphate [Mass/Vol] 3.7 mg/dL Normal 2.7-4.8 [facility] Comment on above: Order Comment: Specimen Type : BLOOD SPECIMENOrdering Facility: [facility] Address: [address] [place] [address] Performed By: #### 92200-7, 2777-1 ####[facility] LABORATORYCLIA [id number] [address] [place] Prealbumin [Mass/Vol] on 12-28-2022 Prealbumin Nephelometry [Mass/Vol] 10 mg/dL Low 17-36 [facility] Comment on above: Order Comment: Specimen Type : BLOOD SPECIMENOrdering Facility: [facility] Address: [address] [place] [address] Performed By: #### 56780-9 # ###[facility] LABORATORYCLIA [id number] [address] [place] Vancomycin random [Mass/Vol] on 023 Vancomycin [Mass/Vol] 10.3 ug/mL Normal 10.0-20.0 [facility] Comment on above: Order Comment: Specimen Type : BLOOD SPECIMENOrdering Facility: [facility] Address: [address] [address] Result Comment: Reference ra nges and high/low indicator flags are provided as general guidelin es only. The treating physician must determine appropriate target levels/dosing based on the specific clinical situation. Performed By: #### 4091-5 ## ##[facility] LABORATORYCLIA [id number] [facility] [place] [address] [place] XR CHEST 1V FRONTAL on 12-28-2022 XR CHEST 1V FRONTAL Normal [facility] ALLIED HEALTH on 12-27-2022 ALLIED HEALTH Normal [facility] ALLIED HEALTH Normal [facility] ANES POSTPROC EVAL on 12-27-2022 ANES POSTPROC EVAL Normal [facility] ARTERIAL BLOOD GASES on 12-27-2022 Base excess Calc (Bld) [Moles/Vol] 3 mmol/L High 0-2 [facility] Comment on above: Order Comment: Specimen Type : ARTERIAL BLOOD SPECIMENOrdering Facility: [facility] Address: [address] [address] Performed By: #### ALLBG ### #[facility] LABORATORYCLIA [id number] [facility], [place] [address] [place] Body temperature 100.76 [degF] Normal [facility] Comment on above: Order Comment: Specimen Type : ARTERIAL BLOOD SPECIMENOrdering Facility: [facility] Address: [address] [address] Performed By: #### ALLBG ### #[facility] LABORATORYCLIA [id number] [facility] [place] [address] [place] Calcium.ionized (BldV) 1.16 mmol/L Normal 1.08-1.30 [facility] [Mass/Vol] Center Comment on above: Order Comment: Specimen Type : ARTERIAL BLOOD SPECIMENOrdering Facility: [facility] Address: [address] [address] Performed By: #### ALLBG ### #[facility]ORATORYCLIA [id number] [address] Calcium.ionized adjusted to pH 1.16 mmol/L Normal 1.08-1.30 [facility] 7.4 (BldA) [Moles/Vol] Genoveva burciaga Comment on above: Order Comment: Specimen Type : ARTERIAL BLOOD SPECIMENOrdering Facility: [facility] Address: [address] [place] [address] Performed By: #### ALLBG ### #[facility]ORATORYCLIA [id number] [address] OF [facility] Carboxyhemoglobin (BldA) [Mass 1.5 % Normal 0.0-2.0 [facility]] Center Comment on above: Order Comment: Specimen Type : ARTERIAL BLOOD SPECIMENOrdering Facility: [facility] Address: [address] [place] [address] Result Comment: Carboxyhemog lobin Reference Range for Smokers: 2.0-8.0% Performed By: #### ALLBG ### #[facility]ORATORYCLIA [id number] [address] OF [facility] Chloride [Moles/Vol] 104 mmol/L Normal 102-109 [facility] Comment on above: Order Comment: Specimen Type : ARTERIAL BLOOD SPECIMENOrdering Facility: [facility] Address: [address] [place] [address] Performed By: #### ALLBG ### #[facility]ORATORYCLIA [id number] [address] [place] CO2 (Bld) [Partial pressure] 48 mm Hg High 36-46 [facility] Comment on above: Order Comment: Specimen Type : ARTERIAL BLOOD SPECIMENOrdering Facility: [facility] Address: [address] [place] [address] Performed By: #### ALLBG ### #[facility]ATORYCLIA [id number] [address] OF [place] CO2 [Moles/Vol] 27 mmol/L Normal 22-28 [facility] Comment on above: Order Comment: Specimen Type : ARTERIAL BLOOD SPECIMENOrdering Facility: [facility] Address: [address] [address] Performed By: #### ALLBG ### #[facility]ORATORYCLIA [id number] [facility] [place], [facility]307 [facility] CO2 adjusted to patient's actual 51 mmHg High 36-46 [facility] temperature (Bld) [Partial pressure] Comment on above: Order Comment: Specimen Type : ARTERIAL BLOOD SPECIMENOrdering Facility: [facility] [facility] Address: [address] [address] Performed By: #### ALLBG ### #[facility]ATORYCLIA [id number] [facility] [place], [address] [place] Glucose [Mass/Vol] 267 mg/dL High 60-105 [facility] Comment on above: Order Comment: Specimen Type : ARTERIAL BLOOD SPECIMENOrdering Facility: [facility] Address: [address] [address] Performed By: #### ALLBG ### #[facility]ATORYCLIA [id number] [facility] [place], [address] HCO3 (Bld) [Moles/Vol] 28 mmol/L High 22-26 [facility] Comment on above: Order Comment: Specimen Type : ARTERIAL BLOOD SPECIMENOrdering Facility: [facility] Address: [address] [address] Performed By: #### ALLBG ### #[facility]ORATORYCLIA [id number] [facility] [place], [address] [place] Hematocrit (Bld) [Volume fraction] 29.4 % Low 36.0-4 6.0 [facility] Comment on above: Order Comment: Specimen Type : ARTERIAL BLOOD SPECIMENOrdering Facility: [facility] Address: [address] [address] Performed By: #### ALLBG ### #[facility]ORATORYCLIA [id number] [facility] [place] [address] [place] Hemoglobin (Bld) [Mass/Vol] 9.5 g/dL Low 11.5-15.5 [facility] Comment on above: Order Comment: Specimen Type : ARTERIAL BLOOD SPECIMENOrdering Facility: [facility] Address: [address] [address] Performed By: #### ALLBG ### #[facility]ORATORYCLIA [id number] [facility] [place] [id number] [facility] [place] Lactate [Moles/Vol] 1.2 mmol/L Normal 0.5-2.[address] [facility] Comment on above: Order Comment: Specimen Type : ARTERIAL BLOOD SPECIMENOrdering Facility: [facility] Address: [address] [place] [address] Performed By: #### ALLBG ### #[facility]ATORYCLIA [id number] [facility] [address] [place] Methemoglobin (Bld) [Mass fraction] 1.2 % Normal 0.0-1 .5 [facility] Comment on above: Order Comment: Specimen Type : ARTERIAL BLOOD SPECIMENOrdering Facility: [facility] Address: [address] [address] Performed By: #### ALLBG ### #[facility]ATORYCLIA [id number] [facility] [place], [address] [place] O2 THERAPY Ventilator Normal [facility] Comment on above: Order Comment: Specimen Type : ARTERIAL BLOOD SPECIMENOrdering Facility: [facility] Address: [address] [address] Performed By: #### ALLBG ### #[facility]ATORYCLIA [id number] [facility], [address] [place] Oxygen (Bld) [Partial pressure] 93 mm Hg Normal 85-95 [facility] Comment on above: Order Comment: Specimen Type : ARTERIAL BLOOD SPECIMENOrdering Facility: [facility] Address: [address] [address] Performed By: #### ALLBG ### #[facility]ATORYCLIA [id number] [place] [address] [facility] [place] Oxygen adjusted to patient's actual 100 mmHg High 85-95 [facility] temperature (Bld) [Partial pressure] Comment on above: Order Comment: Specimen Type : ARTERIAL BLOOD SPECIMENOrdering Facility: [facility] Address: [address] [place] [address] Performed By: #### ALLBG ### #[facility]ATORYCLIA [id number] [place] [address] [facility] Oxyhemoglobin (BldA) [Mass fraction] 94 % Low 95-9 8 [facility] Comment on above: Order Comment: Specimen Type : ARTERIAL BLOOD SPECIMENOrdering Facility: [facility] Address: [address] [place] [address] Performed By: #### ALLBG ### #[facility]ATORYCLIA [id number] [facility] [place], [facility] [facility] pH (Bld) 7.39 [pH] Normal 7.35-7.45 [facility] Comment on above: Order Comment: Specimen Type : ARTERIAL BLOOD SPECIMENOrdering Facility: [facility] Address: [address] [place] [address] Performed By: #### ALLBG ### #[facility]ATORYCLIA [id number] [place] [address] [facility] pH adjusted to patient's actual 7.37 Normal 7.35-7.45 [facility] temperature (Bld) Comment on above: Order Comment: Specimen Type : ARTERIAL BLOOD SPECIMENOrdering Facility: [facility] Address: [address] [place] [address] Performed By: #### ALLBG ### #[facility]ATORYCLIA [id number] [place] [address] [facility] [place] Potassium [Moles/Vol] 4.5 mmol/L Normal 3.5-5.0 [facility] Comment on above: Order Comment: Specimen Type : ARTERIAL BLOOD SPECIMENOrdering Facility: [facility] Address: [address] [address] Performed By: #### ALLBG ### #[facility] LABORATORYCLIA [id number] [place] [address] [place] [facility] Sodium [Moles/Vol] 136 mmol/L Normal 136-144 [facility] Comment on above: Order Comment: Specimen Type : ARTERIAL BLOOD SPECIMENOrdering Facility: [facility] Address: [address] [address] Performed By: #### ALLBG ### #[facility] LABORATORYCLIA [id number] [place] [address] [place] [facility] Basic metabolic 2000 panel on 3 Anion gap [Moles/Vol] 10 mmol/L Normal 9-18 [facility] Comment on above: Order Comment: Specimen Type : BLOOD SPECIMENOrdering Facility: [facility] Address: [address] [address] Performed By: #### 80577-6, 1988-03, 2776-12, ####[facility] LABORATORYCLIA [id number] [place] [address] [facility] [place] Calcium [Mass/Vol] 8.9 mg/dL Normal 8.5-10.2 [facility] Comment on above: Order Comment: Specimen Type : BLOOD SPECIMENOrdering Facility: [facility] Address: [address] Performed By: #### 32956-8, 1988-03, 2776-12, ####[facility] LABORATORYCLIA 36D03 [id number] [place] [address] [place] Chloride [Moles/Vol] 98 mmol/L Normal 97-105 [facility] Comment on above: Order Comment: Specimen Type : BLOOD SPECIMENOrdering Facility: [facility] Address: [address] [address] Performed By: #### 92616-5, 1988-03, 2777 ####[facility] LABORATORYCLIA 36D03 [id number] [place] [address] [place] CO2 [Moles/Vol] 28 mmol/L Normal 22-30 [facility] Comment on above: Order Comment: Specimen Type : BLOOD SPECIMENOrdering Facility: [facility] Address: [address] [place] [address] Performed By: #### 83566-4, 1988-03, 2776-12, ####[facility] HOSPITALIA 36D03 [id number] [place] [address] [facility] Creatinine [Mass/Vol] 0.91 mg/dL Normal 0.58-0.96 [facility] Comment on above: Order Comment: Specimen Type : BLOOD SPECIMENOrdering Facility: [facility] Address: [address] [place] [address] Performed By: #### 07686-6, 1988-03, 2776-12, ####[facility] HOSPITALIA 36D03 [id number] [place] [address] [place] ESTIMATED GLOMERULAR 79 mL/min/1.73m??? Normal >=60 [facility] Comment on above: Order Comment: Specimen Type : BLOOD SPECIMENOrdering Facility: [facility] Address: [address] [place] [address] Result Comment: Estimated Gl omerular Filtration Rate (eGFR) is calculated using the 2020 CK D-EPI creatinine equation. This equation utilizes serum crea tinine, sex, and age as parameters. The creatinine assay has traceab le calibration to isotope dilution-mass spectrometry. Refer to KDIGO guidelines for clinical interpretation. In patients with unstable renal function, e.g. those with acute kidney inju ry, the eGFR may not accurately reflect actual GFR. Performed By: #### 26902-7, 1988-03, 2776-12, ####[facility] LABORATORYIA 36D03 [id number] [place] [address] [place] Glucose [Mass/Vol] 190 mg/dL High 74-99 [facility] Comment on above: Order Comment: Specimen Type : BLOOD SPECIMENOrdering Facility: [facility] Address: [address] [place] [address] Result Comment: The [place] Diabetes Association (ADA) provides guidance for cutoff values f or fasting glucose and random glucose. The ADA defines fasting as n o caloric intake for at least 8 hours. Fasting plasma glucose resul ts between 100 to 125 mg/dL indicate increased risk for diabetes (prediabetes).Fasting plasma glucose results greater than or equa l to 126 mg/dL meet the criteria for diagnosis of diabetes. In th e absence of unequivocal hyperglycemia, results should be confirmed by repeat testing. In a patient with classic symptoms of hypergly cemia or hyperglycemic crisis, random plasma glucose results great er than or equal to 200 mg/dL meet the criteria for diagnosis of di abetes.Reference: Standards of Medical Care in Diabetes 2016, [employer] [employer]. Diabetes Care. 2016.39(Suppl 1). Performed By: #### 93359-5, 1988-03, 2776-12, ####[facility] LABORATORYCLIA 36D03 [id number] [place] [address] [place] Potassium [Moles/Vol] 4.5 mmol/L Normal 3.7-5.1 [facility] Comment on above: Order Comment: Specimen Type : BLOOD SPECIMENOrdering Facility: [facility] Address: [address] [address] Performed By: #### 30928-0, 1988-03, 2776-12, ####[facility] LABORATORYCLIA 36D03 [id number] [place] [address] [place] Sodium [Moles/Vol] 136 mmol/L Normal 136-144 [facility] Comment on above: Order Comment: Specimen Type : BLOOD SPECIMENOrdering Facility: [facility] Address: [address] [address] Performed By: #### 08747-0, 1988-03, 2776-12, ####[facility] LABORATORYCLIA 36D03 [id number] [place] [address] [place] Urea nitrogen [Mass/Vol] 12 mg/dL Normal 7-21 [facility] Comment on above: Order Comment: Specimen Type : BLOOD SPECIMENOrdering Facility: [facility] Address: [address] [address] Performed By: #### 32022-0, 1987-5, 2777-1, 28198-1 ####[facility] LABORATORYCLIA 36D03 [id number] [place] [address] [facility] CBC panel Auto (Bld) on 12-27-2022 Erythrocyte distribution width 16.2 % High 11.5-15.0 [facility] (RBC) [Ratio] Comment on above: Order Comment: Specimen Type : BLOOD SPECIMENOrdering Facility: [facility] Address: [address] [place] [address] Performed By: #### 38803-0 # ###[facility] LABORATORYCLIA [id number] [address] STATES OF [facility] Hematocrit (Bld) [Volume fraction] 28.4 % Low 36.0-4 6.0 [facility] Comment on above: Order Comment: Specimen Type : BLOOD SPECIMENOrdering Facility: [facility] Address: [address] [place] [address] Performed By: #### 29135-0 # ###[facility] LABORATORYCLIA [id number] [address] [id number] [place] [facility] Hemoglobin (Bld) [Mass/Vol] 8.5 g/dL Low 11.5-15.5 [facility] Comment on above: Order Comment: Specimen Type : BLOOD SPECIMENOrdering Facility: [facility] Address: [address] [place] [address] Performed By: #### 38200-4 # ###[facility] LABORATORYCLIA [id number] [address] [place] MCH (RBC) [Entitic mass] 28.1 pg Normal 26.0-34.0 [facility] Comment on above: Order Comment: Specimen Type : BLOOD SPECIMENOrdering Facility: [facility] Address: [address] [address] Performed By: #### 35645-1 # ###[facility] LABORATORYCLIA [id number] [address] [place] MCHC (RBC) [Mass/Vol] 29.9 g/dL Low 30.5-36.0 [facility] Comment on above: Order Comment: Specimen Type : BLOOD SPECIMENOrdering Facility: [facility] Address: [address] [address] Performed By: #### 79660-5 # ###[facility] LABORATORYCLIA [id number] [address] MCV (RBC) [Entitic vol] 93.7 fL Normal 80.0-100.0 [facility] Comment on above: Order Comment: Specimen Type : BLOOD SPECIMENOrdering Facility: [facility] Address: [address] [address] Performed By: #### 50649-9 # ###[facility] LABORATORYCLIA [id number] [address] Nucleated RBC (Bld) [#/Vol] 10*3/uL Normal <0.01 [facility] Comment on above: Order Comment: Specimen Type : BLOOD SPECIMENOrdering Facility: [facility] Address: [address] [address] Performed By: #### 96103-6 # ###[facility] LABORATORYCLIA [id number] [facility], [address] Platelet mean volume (Bld) 9.4 fL Normal 9.0-12.7 [facility] [Entitic vol] Comment on above: Order Comment: Specimen Type : BLOOD SPECIMENOrdering Facility: [facility] Address: [address] [address] Performed By: #### 69694-2 # ###[facility] LABORATORYCLIA [id number] [place] [address] [place] Platelets (Bld) [#/Vol] 333 10*3/uL Normal 150-400 [facility] Comment on above: Order Comment: Specimen Type : BLOOD SPECIMENOrdering Facility: [facility] Address: [address] [address] Performed By: #### 76826-7 # ###[facility] LABORATORYCLIA [id number] [place] [address] [place] RBC (Bld) [#/Vol] 3.03 10*6/uL Low 3.90-5.20 [facility] Comment on above: Order Comment: Specimen Type : BLOOD SPECIMENOrdering Facility: [facility] Address: [address] [address] Performed By: #### 10354-3 # ###[facility] LABORATORYCLIA [id number] [place] [address] [place] WBC (Bld) [#/Vol] 16.79 10*3/uL High 3.70-11.00 [facility] Comment on above: Order Comment: Specimen Type : BLOOD SPECIMENOrdering Facility: [facility] Address: [address] [address] Performed By: #### 70075-9 # ###[facility] LABORATORYCLIA [id number] [place] [address] [place] CONSULT PROG on 12-27-2022 CONSULT PROG Normal [facility] CRP SerPl-mCnc on 12-27-2022 CRP [Mass/Vol] 12.9 mg/dL High <0.9 [facility] Comment on above: Order Comment: Specimen Type : BLOOD SPECIMENOrdering Facility: [facility] Address: [address] [address] Performed By: #### 30114-1, 1987-, 2777-1, 04394-7 ####[facility] LABORATORYCLIA 36D03 [id number] [place] [address] [place] Calcium.ionized [Moles/Vol] on 12-27-19 23 Calcium.ionized (BldV) [Mass/Vol] 1.06 mmol/L Low 1.08-1. 30 [facility] Comment on above: Order Comment: Specimen Type : BLOOD SPECIMENOrdering Facility: [facility] Address: [address] Performed By: #### 1994- ## ##[facility] LABORATORYCLIA [id number] [place] [address] [place] Calcium.ionized adjusted to pH 1.11 mmol/L Normal 1.08-1.30 [facility] 7.4 (Bld) [Moles/Vol] Center Comment on above: Order Comment: Specimen Type : BLOOD SPECIMENOrdering Facility: [facility] Address: [address] [address] Performed By: #### ## ##[facility] LABORATORYCLIA [id number] [place] [address] [place] Magnesium SerPl-mCnc on 12-27-2022 Magnesium [Mass/Vol] 1.7 mg/dL Normal 1.7-2.3 [facility] Comment on above: Order Comment: Specimen Type : BLOOD SPECIMENOrdering Facility: [facility] Address: [address] [address] Performed By: #### 15811-4, 1988-03, 2776-12, ####[facility] LABORATORYCLIA 36D03 [id number] [place] [address] [facility] [place] Phosphate SerPl-mCnc on 12-27-2022 Phosphate [Mass/Vol] 4.4 mg/dL Normal 2.7-4.8 [facility] Comment on above: Order Comment: Specimen Type : BLOOD SPECIMENOrdering Facility: [facility] Address: [address] [address] Performed By: #### 90958-0, 1988-03, 2776-12, ####[facility] LABORATORYCLIA 36D03 [id number] [place] [address] [facility] [place] XR CHEST 1V FRONTAL on 12-27-2022 XR CHEST 1V FRONTAL Normal [facility] ALLIED HEALTH on 12-26-2022 ALLIED HEALTH Normal [facility] ALLIED HEALTH Normal [facility] ANES PRE-OP on 12-26-2022 ANES PRE-OP Normal [facility] Basic metabolic 2000 panel on 3 Anion gap [Moles/Vol] 10 mmol/L Normal 9-18 [facility] Comment on above: Order Comment: Specimen Type : BLOOD SPECIMENOrdering Facility: [facility] Address: [address] [address] Performed By: #### 63205-1, 257-8, 01781-8, 2776- ####[facility] LABORATORYCLIA 36D03 [id number] [place] [id number] [place] Calcium [Mass/Vol] 9.1 mg/dL Normal 8.5-10.2 [facility] Comment on above: Order Comment: Specimen Type : BLOOD SPECIMENOrdering Facility: [facility] Address: [address] [address] Performed By: #### 34606-5, 257-8, 36632-6, 2776- ####[facility] LABORATORYCLIA 36D03 [id number] [place] [address] [place] Chloride [Moles/Vol] 101 mmol/L Normal 97-105 [facility] Comment on above: Order Comment: Specimen Type : BLOOD SPECIMENOrdering Facility: [facility] Address: [address] [address] Performed By: #### 46429-5, 257-8, 92629-9, 2776-1 ####[facility] LABORATORYCLIA 36D03 [id number] [place] [address] [place] CO2 [Moles/Vol] 26 mmol/L Normal 22-30 [facility] Comment on above: Order Comment: Specimen Type : BLOOD SPECIMENOrdering Facility: [facility] Address: [address] [address] Performed By: #### 74832-0, 2571-8, 59302-6, 2776- ####[facility] 36D03 [id number] [place] [address] [facility] Creatinine [Mass/Vol] 1.14 mg/dL High 0.58-0.96 [facility] Comment on above: Order Comment: Specimen Type : BLOOD SPECIMENOrdering Facility: [facility] Address: [address] [place] [address] Performed By: #### 42162-5, 257-8, 40499-4, 2776-12 ####[facility]OSPITALIA 36D03 [id number] [place] [address] [facility] ESTIMATED GLOMERULAR 61 mL/min/1.73m??? Normal >=60 [facility] Comment on above: Order Comment: Specimen Type : BLOOD SPECIMENOrdering Facility: [facility] Address: [address] [place] [address] Result Comment: Estimated Gl omerular Filtration Rate (eGFR) is calculated using the 2020 D-EPI creatinine equation. This equation utilizes serum crea tinine, sex, and age as parameters. The creatinine assay has traceab le calibration to isotope dilution-mass spectrometry. Refer to KDIGO guidelines for clinical interpretation. In patients with unstable renal function, e.g. those with acute kidney inju ry, the eGFR may not accurately reflect actual GFR. Performed By: #### 80851-3, 257-8, 58787-7, 2776-12 ####[facility] LABORATORYCLIA [id number] [place] [address] [facility] Glucose [Mass/Vol] 246 mg/dL High 74-99 [facility] Comment on above: Order Comment: Specimen Type : BLOOD SPECIMENOrdering Facility: [facility] Address: [address] [place] [address] Result Comment: The [place] Diabetes Association (ADA) provides guidance for cutoff values f or fasting glucose and random glucose. The ADA defines fasting as n o caloric intake for at least 8 hours. Fasting plasma glucose resul ts between 100 to 125 mg/dL indicate increased risk for diabetes (prediabetes).Fasting plasma glucose results greater than or equa l to 126 mg/dL meet the criteria for diagnosis of diabetes. In th e absence of unequivocal hyperglycemia, results should be confirmed by repeat testing. In a patient with classic symptoms of hypergly cemia or hyperglycemic crisis, random plasma glucose results great er than or equal to 200 mg/dL meet the criteria for diagnosis of di abetes.Reference: Standards of Medical Care in Diabetes 2016, [employer] [employer]. Diabetes Care. 2016.39(Suppl 1). Performed By: #### 59233-1, 2570-8, , 2776-12 ####[facility] LABORATORYCLIA 36D03 [id number] [place] [address] [place] Potassium [Moles/Vol] 4.4 mmol/L Normal 3.7-5.1 [facility] Comment on above: Order Comment: Specimen Type : BLOOD SPECIMENOrdering Facility: [facility] Address: [address] [place] [address] Performed By: #### 25993-2, 8, , 2776-12 ####[facility]ITAL[facility] 36D03 [id number] [place] [address] [place] Sodium [Moles/Vol] 137 mmol/L Normal 136-144 [facility] Comment on above: Order Comment: Specimen Type : BLOOD SPECIMENOrdering Facility: [facility] Address: [address] [place] [address] Performed By: #### 09367-5, 8, , 2776-12 ####[facility] LABORATORYCLIA 36D03 [id number] [place] [address] [facility] [place] Urea nitrogen [Mass/Vol] 20 mg/dL Normal 7-21 [facility] Comment on above: Order Comment: Specimen Type : BLOOD SPECIMENOrdering Facility: [facility] Address: [address] [place] [address] Performed By: #### 53078-9, 2570-8, , 2776- ####[facility] LABORATORYCLIA [id number] [place] CASE MGT INIT ASSES on 12-26-2022 CASE MGT INIT ASSES Normal [facility] CBC panel Auto (Bld) on 12-26-2022 Erythrocyte distribution width 16.4 % High 11.5-15.0 [facility] (RBC) [Ratio] Comment on above: Order Comment: Specimen Type : BLOOD SPECIMENOrdering Facility: [facility] Address: [address] [address] Performed By: #### 63732-3 # ###[facility] LABORATORYCLIA [id number] [address] OF [facility] Hematocrit (Bld) [Volume fraction] 29.4 % Low 36.0-4 6.0 [facility] Comment on above: Order Comment: Specimen Type : BLOOD SPECIMENOrdering Facility: [facility] Address: [address] [place] [address] Performed By: #### 80203-8 # ###[facility] LABORATORYCLIA [id number] [address] STATES OF [facility] Hemoglobin (Bld) [Mass/Vol] 8.8 g/dL Low 11.5-15.5 [facility] Comment on above: Order Comment: Specimen Type : BLOOD SPECIMENOrdering Facility: [facility] Address: [address] [place] [address] Performed By: #### 51912-5 # ###[facility] LABORATORYCLIA [id number] [address] [place] MCH (RBC) [Entitic mass] 28.7 pg Normal 26.0-34.0 [facility] Comment on above: Order Comment: Specimen Type : BLOOD SPECIMENOrdering Facility: [facility] Address: [address] [place] [address] Performed By: #### 23236-9 # ###[facility] LABORATORYCLIA [id number] [address] [place] MCHC (RBC) [Mass/Vol] 29.9 g/dL Low 30.5-36.0 [facility] Comment on above: Order Comment: Specimen Type : BLOOD SPECIMENOrdering Facility: [facility] Address: [address] [address] Performed By: #### 95764-7 # ###[facility] LABORATORYCLIA [id number] [facility], [address] [place] MCV (RBC) [Entitic vol] 95.8 fL Normal 80.0-100.0 [facility] Comment on above: Order Comment: Specimen Type : BLOOD SPECIMENOrdering Facility: [facility] Address: [address] [address] Performed By: #### 39775-6 # ###[facility] LABORATORYCLIA [id number] [address] [place] Nucleated RBC (Bld) [#/Vol] 10*3/uL Normal <0.01 [facility] Comment on above: Order Comment: Specimen Type : BLOOD SPECIMENOrdering Facility: [facility] Address: [address] [address] Performed By: #### 97798-9 # ###[facility] LABORATORYCLIA [id number] [address] [place] Platelet mean volume (Bld) 9.4 fL Normal 9.0-12.7 [facility] [Entitic vol] Comment on above: Order Comment: Specimen Type : BLOOD SPECIMENOrdering Facility: [facility] Address: [address] Performed By: #### 79039-4 # ###[facility] LABORATORYCLIA [id number] [address] [place] Platelets (Bld) [#/Vol] 304 10*3/uL Normal 150-400 [facility] Comment on above: Order Comment: Specimen Type : BLOOD SPECIMENOrdering Facility: [facility] Address: [address] [address] Performed By: #### 16076-1 # ###[facility] LABORATORYCLIA [id number] [facility] [place] [address] [place] RBC (Bld) [#/Vol] 3.07 10*6/uL Low 3.90-5.20 [facility] Comment on above: Order Comment: Specimen Type : BLOOD SPECIMENOrdering Facility: [facility] Address: [address] [id number] Performed By: #### 09011-6 # ###[facility] LABORATORYCLIA [id number] [facility] [place] [address] [place] WBC (Bld) [#/Vol] 17.12 10*3/uL High 3.70-11.00 [facility] Comment on above: Order Comment: Specimen Type : BLOOD SPECIMENOrdering Facility: [facility] Address: [address] [id number] Performed By: #### 86224-1 # ###[facility]ITAL[facility] [id number] [facility], [address] [place] CNPN on 12-26-2022 CNPN Normal [facility] CONSULT PROG on 12-26-2022 CONSULT PROG Normal [facility] Calcium.ionized [Moles/Vol] on 023 Calcium.ionized (BldV) 1.22 mmol/L Normal 1.08-1.30 [facility] [Mass/Vol] Center Comment on above: Order Comment: Specimen Type : BLOOD SPECIMENOrdering Facility: [facility] Address: [address] [id number] Performed By: #### 1995-0 ## ##[facility] LABORATORYCLIA [id number] [facility], [address] Calcium.ionized adjusted to pH 1.21 mmol/L Normal 1.08-1.30 [facility] 7.4 (Bld) [Moles/Vol] Center Comment on above: Order Comment: Specimen Type : BLOOD SPECIMENOrdering Facility: [facility] Address: [address] [address] Performed By: #### 1995-0 ## ##[facility] [id number] [address] HCG ( test) Ql (U) on 12-26-19 23 Specific gravity (U) [Rel 1.020 Normal 1.006-1.029 [facility] density] Comment on above: Order Comment: Specimen Type : URINE SPECIMENOrdering Facility: [facility] Address: [address] [address] Result Comment: If specific gravity is <1.005 then results may be falsely negative. Serum HCG is recommended. Performed By: #### 2106-3 ## ##[facility] [id number] [address] HCG Preg Ur Ql on 12-26-2022 HCG ( test) Ql (U) Negative Normal Negative [facility] Comment on above: Order Comment: Specimen Type : URINE SPECIMENOrdering Facility: [facility] Address: [address] [address] Result Comment: This test is intended to aid in the early detection of . Very dilute ur ine samples, as indicated by a low specific gravity, may not co ntain provider relations representative levels of hCG. This test detects intact hCG only. This test does not reliably detect hCG degradation produ cts, including free-beta subunit and beta-core fragment. Therefor e, this test may show reduced reactivity in urine after 8 weeks gestation. A number of conditions other than , includ ing trophoblastic disease and certain non-trophoblastic neoplasms cause elevated levels of hCG. As with any assay employing mouse an tibodies, the possibility exists for interference by human anti-m ouse antibodies (HAMA) in the specimen. The test provides a presumpt sduarshan diagnosis for . Performed By: #### 2106-3 ## ##[facility]ITAL[facility] [id number] [address] [place] Magnesium SerPl-mCnc on 12-26-2022 Magnesium [Mass/Vol] 1.4 mg/dL Low 1.7-2.3 [facility] Comment on above: Order Comment: Specimen Type : BLOOD SPECIMENOrdering Facility: [facility] Address: [address] [place] [address] Performed By: #### 91949-0, 2570-8, , 2776-12 ####[facility] LABORATORYCLIA [id number] [place] [address] [facility] OPERATIVE NO on 12-26-2022 OPERATIVE NO Normal [facility] Phosphate SerPl-mCnc on 12-26-2022 Phosphate [Mass/Vol] 3.0 mg/dL Normal 2.7-4.8 [facility] Comment on above: Order Comment: Specimen Type : BLOOD SPECIMENOrdering Facility: [facility] Address: [address] [place] [address] Performed By: #### 27699-0, 8, , 2776-12 ####[facility] LABORATORYCLIA [id number] [address] [id number] [facility] Trigl SerPl-mCnc on 12-26-2022 Triglyceride [Mass/Vol] 198 mg/dL High <150 [facility] Comment on above: Order Comment: Specimen Type : BLOOD SPECIMENOrdering Facility: [facility] Address: [address] [place] [address] Result Comment: <150 mg/dL, Normal 150-199 mg/dL, Borderline high 200-499 mg/dL, High>499 mg/d L, Very highReference:1. National Cholesterol Education Progra m ATP III Guideline At-A-Glance Quick Desk Reference: National a rt, Lung, and Blood [place]. National Institutes of Health. 2001: NIH Publication No. 01-3305. Performed By: #### 47787-7, 2570-8, 92762-6, 2776-12 ####[facility] LABORATORYCLIA [id number] [place] [address] [facility] Triglyceride [Mass/Vol] on 12-26-2022 FASTING TIME 0 hrs Normal [facility] Comment on above: Order Comment: Specimen Type : BLOOD SPECIMENOrdering Facility: [facility] Address: [address] [address] Result Comment: impact 1.5 t ube feed continuous Performed By: #### 12015-0, 2571-8, 07864-0, 2777-1 ####[facility] LABORATORYCLIA [id number] [place] XR CHEST 1V FRONTAL on 12-26-2022 XR CHEST 1V FRONTAL Normal [facility] ALLIED HEALTH on 12-25-2022 ALLIED HEALTH Normal [facility] ALLIED HEALTH Normal [facility] ANES POSTPROC EVAL on 12-25-2022 ANES POSTPROC EVAL Normal [facility] ANES PRE-OP on 12-25-2022 ANES PRE-OP Normal [facility] ARTERIAL BLOOD GASES on 12-25-2022 Base excess Calc (Bld) [Moles/Vol] 0 mmol/L Normal 0-2 [facility] Comment on above: Order Comment: Specimen Type : ARTERIAL BLOOD SPECIMENOrdering Facility: [facility] Address: [address] [address] Performed By: #### ALLBG ### #[facility] LABORATORYCLIA [id number] [place] [address] [place] Body temperature 98.96 [degF] Normal [facility] Comment on above: Order Comment: Specimen Type : ARTERIAL BLOOD SPECIMENOrdering Facility: [facility] Address: [address] [address] Performed By: #### ALLBG ### #[facility] LABORATORYCLIA [id number] [place] [address] [place] Calcium.ionized (BldV) 1.18 mmol/L Normal 1.08-1.30 [facility] [Mass/Vol] [place] Comment on above: Order Comment: Specimen Type : ARTERIAL BLOOD SPECIMENOrdering Facility: [facility] Address: [address] [address] Performed By: #### ALLBG ### #[facility]ORATORYCLIA [id number] [place], [place] [id number] [place] [address] [place] Calcium.ionized adjusted to pH 1.15 mmol/L Normal 1.08-1.30 [facility] 7.4 (BldA) [Moles/Vol] Genoveva burciaga Comment on above: Order Comment: Specimen Type : ARTERIAL BLOOD SPECIMENOrdering Facility: [facility] Address: [address] [place] [address] Performed By: #### ALLBG ### #[facility]ORATORYCLIA [id number] [address] [place] Carboxyhemoglobin (BldA) [Mass <1.0 Normal 0.0-2.0 [facility]] Center Comment on above: Order Comment: Specimen Type : ARTERIAL BLOOD SPECIMENOrdering Facility: [facility] Address: [address] [place] [address] Result Comment: Carboxyhemog lobin Reference Range for Smokers: 2.0-8.0% Performed By: #### ALLBG ### #[facility] LABORATORYCLIA [id number] [address] [place] Chloride [Moles/Vol] 102 mmol/L Normal 102-109 [facility] Comment on above: Order Comment: Specimen Type : ARTERIAL BLOOD SPECIMENOrdering Facility: [facility] Address: [address] [address] Performed By: #### ALLBG ### #[facility]ORATORYCLIA [id number] [address] [place] CO2 (Bld) [Partial pressure] 48 mm Hg High 36-46 [facility] Comment on above: Order Comment: Specimen Type : ARTERIAL BLOOD SPECIMENOrdering Facility: [facility] Address: [address] [address] Performed By: #### ALLBG ### #[facility]ORATORYCLIA [id number] [address] [place] CO2 [Moles/Vol] 24 mmol/L Normal 22-28 [facility] Comment on above: Order Comment: Specimen Type : ARTERIAL BLOOD SPECIMENOrdering Facility: [facility] Address: [address] [place] [address] Performed By: #### ALLBG ### #[facility]ORATORYCLIA [id number] [place] [address] [facility] OF [place] CO2 adjusted to patient's actual 48 mmHg High 36-46 [facility] temperature (Bld) [Partial pressure] Comment on above: Order Comment: Specimen Type : ARTERIAL BLOOD SPECIMENOrdering Facility: [facility] Address: [address] [address] Performed By: #### ALLBG ### #[facility] LABORATORYCLIA [id number] [facility] [place], [place] [address] [place] [address] [place] Glucose [Mass/Vol] 188 mg/dL High 60-105 [facility] Comment on above: Order Comment: Specimen Type : ARTERIAL BLOOD SPECIMENOrdering Facility: [facility] Address: [address] [address] Performed By: #### ALLBG ### #[facility]ORATORYCLIA [id number] [facility] [place] [id number] [place] [address] [place] HCO3 (Bld) [Moles/Vol] 26 mmol/L Normal 22-26 [facility] Comment on above: Order Comment: Specimen Type : ARTERIAL BLOOD SPECIMENOrdering Facility: [facility] Address: [address] [address] Performed By: #### ALLBG ### #[facility] LABORATORYCLIA [id number] [place] [address] [place] Hematocrit (Bld) [Volume fraction] 28.1 % Low 36.0-4 6.0 [facility] Comment on above: Order Comment: Specimen Type : ARTERIAL BLOOD SPECIMENOrdering Facility: [facility] Address: [address] [address] Performed By: #### ALLBG ### #[facility] LABORATORYCLIA [id number] [place] [address] [facility] OF [place] Hemoglobin (Bld) [Mass/Vol] 9.1 g/dL Low 11.5-15.5 [facility] Comment on above: Order Comment: Specimen Type : ARTERIAL BLOOD SPECIMENOrdering Facility: [facility] Address: [address] [place] [address] Performed By: #### ALLBG ### #[facility]ORATORYCLIA [id number] [facility] [place], [facility] [facility] [place] Lactate [Moles/Vol] 0.8 mmol/L Normal 0.5-2.[address] [facility] Comment on above: Order Comment: Specimen Type : ARTERIAL BLOOD SPECIMENOrdering Facility: [facility] Address: [address] [place] [address] Performed By: #### ALLBG ### #[facility] LABORATORYCLIA [id number] [facility] [place], [facility]307 [place] Methemoglobin (Bld) [Mass fraction] % Normal 0.0-1 .5 [facility] Comment on above: Order Comment: Specimen Type : ARTERIAL BLOOD SPECIMENOrdering Facility: [facility] Address: [address] [place] [address] Performed By: #### ALLBG ### #[facility] LABORATORYCLIA [id number] [facility] [place], [facility]307 [facility] [place] O2 THERAPY Ventilator Normal [facility] Comment on above: Order Comment: Specimen Type : ARTERIAL BLOOD SPECIMENOrdering Facility: [facility] Address: [address] [address] Performed By: #### ALLBG ### #[facility] LABORATORYCLIA [id number] [facility] [place], [facility]307 [facility] [place] Oxygen (Bld) [Partial pressure] 174 mm Hg High 85-95 [facility] Comment on above: Order Comment: Specimen Type : ARTERIAL BLOOD SPECIMENOrdering Facility: [facility] Address: [address] [address] Performed By: #### ALLBG ### #[facility] LABORATORYCLIA [id number] [place] [address] [facility] Oxygen adjusted to patient's actual 175 mmHg High 85-95 [facility] temperature (Bld) [Partial pressure] Comment on above: Order Comment: Specimen Type : ARTERIAL BLOOD SPECIMENOrdering Facility: [facility] Address: [address] [place] [address] Performed By: #### ALLBG ### #[facility]ORATORYCLIA [id number] [facility] [place] [id number] [place] [address] Oxyhemoglobin (BldA) [Mass fraction] 96 % Normal 95-9 8 [facility] Comment on above: Order Comment: Specimen Type : ARTERIAL BLOOD SPECIMENOrdering Facility: [facility] Address: [address] [place] [address] Performed By: #### ALLBG ### #[facility]ORATORYCLIA [id number] [facility] [place], [address] [place] pH (Bld) 7.35 [pH] Normal 7.35-7.45 [facility] Comment on above: Order Comment: Specimen Type : ARTERIAL BLOOD SPECIMENOrdering Facility: [facility] Address: [address] [place] [address] Performed By: #### ALLBG ### #[facility]ORATORYCLIA [id number] [facility] [place], [place] [address] [place] [address] pH adjusted to patient's actual 7.35 Normal 7.35-7.45 [facility] temperature (Bld) Comment on above: Order Comment: Specimen Type : ARTERIAL BLOOD SPECIMENOrdering Facility: [facility] Address: [address] [place] [address] Performed By: #### ALLBG ### #[facility] LABORATORYCLIA [id number] [place] [address] [place] Potassium [Moles/Vol] 4.9 mmol/L Normal 3.5-5.0 [facility] Comment on above: Order Comment: Specimen Type : ARTERIAL BLOOD SPECIMENOrdering Facility: [facility] Address: [address] [address] Performed By: #### ALLBG ### #[facility] LABORATORYCLIA [id number] [facility] [place], [address] [place] Sodium [Moles/Vol] 137 mmol/L Normal 136-144 [facility] Comment on above: Order Comment: Specimen Type : ARTERIAL BLOOD SPECIMENOrdering Facility: [facility] Address: [address] [address] Performed By: #### ALLBG ### #[facility]ORATORYCLIA [id number] [address] [place] Base deficit (BldA) [Moles/Vol] -2 mmol/L Normal -2-0 [facility] Comment on above: Order Comment: Specimen Type : ARTERIAL BLOOD SPECIMENOrdering Facility: [facility] Address: [address] [address] Performed By: #### ALLBG ### #[facility] LABORATORYCLIA [id number] [address] [place] Body temperature 98.78 [degF] Normal [facility] Comment on above: Order Comment: Specimen Type : ARTERIAL BLOOD SPECIMENOrdering Facility: [facility] Address: [address] [address] Performed By: #### ALLBG ### #[facility] LABORATORYCLIA [id number] [facility] [place], [address] [place] Calcium.ionized (BldV) [Mass/Vol] 1.06 mmol/L Low 1.08-1. 30 [facility] Comment on above: Order Comment: Specimen Type : ARTERIAL BLOOD SPECIMENOrdering Facility: [facility] Address: [address] [address] Performed By: #### ALLBG ### #[facility]ORATORYCLIA [id number] [place] [address] OF [facility] Calcium.ionized adjusted to pH 7.4 1.01 mmol/L Low 1.08-1 .30 [facility] (dA) [Moles/Vol] [place] Comment on above: Order Comment: Specimen Type : ARTERIAL BLOOD SPECIMENOrdering Facility: [facility] Address: [address] [place] [address] Performed By: #### ALLBG ### #[facility] LABORATORYCLIA [id number] [address] [place] Carboxyhemoglobin (BldA) [Mass 2.2 % High 0.0-2.0 [facility] fraction] Comment on above: Order Comment: Specimen Type : ARTERIAL BLOOD SPECIMENOrdering Facility: [facility] Address: [address] [place] [address] Result Comment: Carboxyhemog lobin Reference Range for Smokers: 2.0-8.0% Performed By: #### ALLBG ### #[facility] LABORATORYCLIA [id number] [address] [place] Chloride [Moles/Vol] 110 mmol/L High 102-109 [facility] Comment on above: Order Comment: Specimen Type : ARTERIAL BLOOD SPECIMENOrdering Facility: [facility] Address: [address] [place] [address] Performed By: #### ALLBG ### #[facility] LABORATORYCLIA [id number] [address] [place] CO2 (Bld) [Partial pressure] 47 mm Hg High 36-46 [facility] Comment on above: Order Comment: Specimen Type : ARTERIAL BLOOD SPECIMENOrdering Facility: [facility] Address: [address] [place] [address] Performed By: #### ALLBG ### #[facility] LABORATORYCLIA [id number] [address] OF [place] CO2 [Moles/Vol] 22 mmol/L Normal 22-28 [facility] Comment on above: Order Comment: Specimen Type : ARTERIAL BLOOD SPECIMENOrdering Facility: [facility] Address: [address] [address] Performed By: #### ALLBG ### #[facility] LABORATORYCLIA [id number] [place] [facility], [address] CO2 adjusted to patient's actual 47 mmHg High 36-46 [facility] temperature (Bld) [Partial pressure] Comment on above: Order Comment: Specimen Type : ARTERIAL BLOOD SPECIMENOrdering Facility: [facility] Address: [address] [address] Performed By: #### ALLBG ### #[facility]ORATORYCLIA [id number] [place] [address] [place] Glucose [Mass/Vol] 162 mg/dL High 60-105 [facility] Comment on above: Order Comment: Specimen Type : ARTERIAL BLOOD SPECIMENOrdering Facility: [facility] Address: [address] [address] Performed By: #### ALLBG ### #[facility]ORATORYCLIA [id number] [place] [facility], [address] HCO3 (Bld) [Moles/Vol] 23 mmol/L Normal 22-26 [facility] Comment on above: Order Comment: Specimen Type : ARTERIAL BLOOD SPECIMENOrdering Facility: [facility] Address: [address] [address] Performed By: #### ALLBG ### #[facility]ORATORYCLIA [id number] [facility], [address] [place] Hematocrit (Bld) [Volume fraction] 31.8 % Low 36.0-4 6.0 [facility] Comment on above: Order Comment: Specimen Type : ARTERIAL BLOOD SPECIMENOrdering Facility: [facility] Address: [address] [place] [address] Performed By: #### ALLBG ### #[facility]ORATORYCLIA [id number] [facility] [place] [address] [place] Hemoglobin (Bld) [Mass/Vol] 10.3 g/dL Low 11.5-15.5 [facility] Comment on above: Order Comment: Specimen Type : ARTERIAL BLOOD SPECIMENOrdering Facility: [facility] Address: [address] [address] Performed By: #### ALLBG ### #[facility]ORATORYCLIA [id number] [place] [address] [place] Lactate [Moles/Vol] 0.6 mmol/L Normal 0.5-2.[address] [facility] Comment on above: Order Comment: Specimen Type : ARTERIAL BLOOD SPECIMENOrdering Facility: [facility] Address: [address] [address] Performed By: #### ALLBG ### #[facility] LABORATORYCLIA [id number] [facility], [address] [place] Methemoglobin (Bld) [Mass fraction] 1.1 % Normal 0.0-1 .5 [facility] Comment on above: Order Comment: Specimen Type : ARTERIAL BLOOD SPECIMENOrdering Facility: [facility] Address: [address] [address] Performed By: #### ALLBG ### #[facility] LABORATORYCLIA [id number] [facility], [facility] [place] O2 THERAPY Ventilator Normal [facility] Comment on above: Order Comment: Specimen Type : ARTERIAL BLOOD SPECIMENOrdering Facility: [facility] Address: [address] [address] Performed By: #### ALLBG ### #[facility]ORATORYCLIA [id number] [facility], [address] [place] Oxygen (Bld) [Partial pressure] 136 mm Hg High 85-95 [facility] Comment on above: Order Comment: Specimen Type : ARTERIAL BLOOD SPECIMENOrdering Facility: [facility] Address: [address] [address] Performed By: #### ALLBG ### #[facility]ORATORYCLIA [id number] [place] [address] [facility] [place] Oxygen adjusted to patient's actual 137 mmHg High 85-95 [facility] temperature (Bld) [Partial pressure] Comment on above: Order Comment: Specimen Type : ARTERIAL BLOOD SPECIMENOrdering Facility: [facility] Address: [address] [place] [address] Performed By: #### ALLBG ### #[facility]ORATORYCLIA [id number] [place] [address] [facility] Oxyhemoglobin (BldA) [Mass fraction] 95 % Normal 95-9 8 [facility] Comment on above: Order Comment: Specimen Type : ARTERIAL BLOOD SPECIMENOrdering Facility: [facility] Address: [address] [place] [address] Performed By: #### ALLBG ### #[facility]ORATORYCLIA [id number] [facility] [place], [facility] [facility] [place] pH (Bld) 7.32 [pH] Low 7.35-7.45 [facility] Comment on above: Order Comment: Specimen Type : ARTERIAL BLOOD SPECIMENOrdering Facility: [facility] Address: [address] [place] [address] Performed By: #### ALLBG ### #[facility] LABORATORYCLIA [id number] [place] [address] [facility] [place] pH adjusted to patient's actual 7.32 Low 7.35-7.45 [facility] temperature (Bld) Comment on above: Order Comment: Specimen Type : ARTERIAL BLOOD SPECIMENOrdering Facility: [facility] Address: [address] [place] [address] Performed By: #### ALLBG ### #[facility]ORATORYCLIA [id number] [place] [address] [facility] [place] Potassium [Moles/Vol] 4.3 mmol/L Normal 3.5-5.0 [facility] Comment on above: Order Comment: Specimen Type : ARTERIAL BLOOD SPECIMENOrdering Facility: [facility] Address: [address] [address] Performed By: #### ALLBG ### #[facility]ORATORYCLIA [id number] [facility] [address] [place] Sodium [Moles/Vol] 135 mmol/L Low 136-144 [facility] Comment on above: Order Comment: Specimen Type : ARTERIAL BLOOD SPECIMENOrdering Facility: [facility] Address: [address] [address] Performed By: #### ALLBG ### #[facility]ORATORYCLIA [id number] [facility] [address] [place] Base deficit (BldA) [Moles/Vol] -1 mmol/L Normal -2-0 [facility] Comment on above: Order Comment: Specimen Type : ARTERIAL BLOOD SPECIMENOrdering Facility: [facility] Address: [address] [address] Performed By: #### ALLBG ### #[facility]ORATORYCLIA [id number] [address] [place] Body temperature 97.52 [degF] Normal [facility] Comment on above: Order Comment: Specimen Type : ARTERIAL BLOOD SPECIMENOrdering Facility: [facility] Address: [address] [address] Performed By: #### ALLBG ### #[facility]ORATORYCLIA [id number] [facility], [address] [place] Calcium.ionized (BldV) 1.18 mmol/L Normal 1.08-1.30 [facility] [Mass/Vol] [place] Comment on above: Order Comment: Specimen Type : ARTERIAL BLOOD SPECIMENOrdering Facility: [facility] Address: [address] [address] Performed By: #### ALLBG ### #[facility]ORATORYCLIA [id number] [address] [place] Calcium.ionized adjusted to pH 1.08 mmol/L Normal 1.08-1.30 [facility] 7.4 (BldA) [Moles/Vol] Genoveva burciaga Comment on above: Order Comment: Specimen Type : ARTERIAL BLOOD SPECIMENOrdering Facility: [facility] Address: [address] [address] Performed By: #### ALLBG ### #[facility] LABORATORYCLIA [id number] [address] OF [facility] Carboxyhemoglobin (BldA) [Mass 3.0 % High 0.0-2.0 [facility] fraction] Comment on above: Order Comment: Specimen Type : ARTERIAL BLOOD SPECIMENOrdering Facility: [facility] Address: [address] [place] [address] Result Comment: Carboxyhemog lobin Reference Range for Smokers: 2.0-8.0% Performed By: #### ALLBG ### #[facility] LABORATORYCLIA [id number] [address] STATES OF [facility] Chloride [Moles/Vol] 104 mmol/L Normal 102-109 [facility] Comment on above: Order Comment: Specimen Type : ARTERIAL BLOOD SPECIMENOrdering Facility: [facility] Address: [address] [place] [address] Performed By: #### ALLBG ### #[facility] LABORATORYCLIA [id number] [address] [place] CO2 (Bld) [Partial pressure] 63 mm Hg High 36-46 [facility] Comment on above: Order Comment: Specimen Type : ARTERIAL BLOOD SPECIMENOrdering Facility: [facility] Address: [address] [address] Performed By: #### ALLBG ### #[facility]ORATORYCLIA [id number] [address] OF [facility] CO2 [Moles/Vol] 25 mmol/L Normal 22-28 [facility] Comment on above: Order Comment: Specimen Type : ARTERIAL BLOOD SPECIMENOrdering Facility: [facility] Address: [address] [address] Performed By: #### ALLBG ### #[facility]ORATORYCLIA [id number] [facility] [address] CO2 adjusted to patient's actual 61 mmHg High 36-46 [facility] temperature (Bld) [Partial pressure] Comment on above: Order Comment: Specimen Type : ARTERIAL BLOOD SPECIMENOrdering Facility: [facility] Address: [address] [address] Performed By: #### ALLBG ### #[facility]ORATORYCLIA [id number] [facility] [address] [place] FIO2 80 % Normal [facility] Comment on above: Order Comment: Specimen Type : ARTERIAL BLOOD SPECIMENOrdering Facility: [facility] Address: [address] [address] Performed By: #### ALLBG ### #[facility]ORATORYCLIA [id number] [facility] [address] [place] Glucose [Mass/Vol] 162 mg/dL High 60-105 [facility] Comment on above: Order Comment: Specimen Type : ARTERIAL BLOOD SPECIMENOrdering Facility: [facility] Address: [address] [address] Performed By: #### ALLBG ### #[facility]ORATORYCLIA [id number] [facility] [address] HCO3 (Bld) [Moles/Vol] 26 mmol/L Normal 22-26 [facility] Comment on above: Order Comment: Specimen Type : ARTERIAL BLOOD SPECIMENOrdering Facility: [facility] Address: [address] [address] Performed By: #### ALLBG ### #[facility]ORATORYCLIA [id number] [address] [place] Hematocrit (Bld) [Volume fraction] 29.1 % Low 36.0-4 6.0 [facility] Comment on above: Order Comment: Specimen Type : ARTERIAL BLOOD SPECIMENOrdering Facility: [facility] Address: [address] [address] Performed By: #### ALLBG ### #[facility]ORATORYCLIA [id number] [facility] [place], [facility] [place] Hemoglobin (Bld) [Mass/Vol] 9.4 g/dL Low 11.5-15.5 [facility] Comment on above: Order Comment: Specimen Type : ARTERIAL BLOOD SPECIMENOrdering Facility: [facility] Address: [address] [address] Performed By: #### ALLBG ### #[facility]ORATORYCLIA [id number] [facility] [place], [address] [place] Lactate [Moles/Vol] 0.5 mmol/L Normal 0.5-2.[address] [facility] Comment on above: Order Comment: Specimen Type : ARTERIAL BLOOD SPECIMENOrdering Facility: [facility] Address: [address] [address] Performed By: #### ALLBG ### #[facility]ORATORYCLIA [id number] [facility] [place], [address] [place] Methemoglobin (Bld) [Mass fraction] 1.1 % Normal 0.0-1 .5 [facility] Comment on above: Order Comment: Specimen Type : ARTERIAL BLOOD SPECIMENOrdering Facility: [facility] Address: [address] [address] Performed By: #### ALLBG ### #[facility]ORATORYCLIA [id number] [place] [address] [place] O2 THERAPY Ventilator Normal [facility] Comment on above: Order Comment: Specimen Type : ARTERIAL BLOOD SPECIMENOrdering Facility: [facility] Address: [address] [address] Performed By: #### ALLBG ### #[facility]ORATORYCLIA [id number] [place] [address] [facility] [place] Oxygen (Bld) [Partial pressure] 91 mm Hg Normal 85-95 [facility] Comment on above: Order Comment: Specimen Type : ARTERIAL BLOOD SPECIMENOrdering Facility: [facility] Address: [address] [address] Performed By: #### ALLBG ### #[facility]ORATORYCLIA [id number] [place] [address] [facility] [place] Oxygen adjusted to patient's actual 88 mmHg Normal 85-95 [facility] temperature (Bld) [Partial pressure] Comment on above: Order Comment: Specimen Type : ARTERIAL BLOOD SPECIMENOrdering Facility: [facility] Address: [address] [address] Performed By: #### ALLBG ### #[facility]ORATORYCLIA [id number] [place] [address] [facility] [place] Oxyhemoglobin (BldA) [Mass fraction] 92 % Low 95-9 8 [facility] Comment on above: Order Comment: Specimen Type : ARTERIAL BLOOD SPECIMENOrdering Facility: [facility] Address: [address] [address] Performed By: #### ALLBG ### #[facility] LABORATORYCLIA [id number] [facility] [place], [facility] [place] PEEP/CPAP 10 cmH2O Normal [facility] Comment on above: Order Comment: Specimen Type : ARTERIAL BLOOD SPECIMENOrdering Facility: [facility] Address: [address] [address] Performed By: #### ALLBG ### #[facility]ORATORYCLIA [id number] [place] [address] [place] pH (Bld) 7.24 [pH] Low 7.35-7.45 [facility] Comment on above: Order Comment: Specimen Type : ARTERIAL BLOOD SPECIMENOrdering Facility: [facility] Address: [address] [address] Performed By: #### ALLBG ### #[facility]ORATORYCLIA [id number] [facility] [place], [address] pH adjusted to patient's actual 7.25 Low 7.35-7.45 [facility] temperature (Bld) Comment on above: Order Comment: Specimen Type : ARTERIAL BLOOD SPECIMENOrdering Facility: [facility] Address: [address] [place] [address] Performed By: #### ALLBG ### #[facility]ORATORYCLIA [id number] [facility], [address] Potassium [Moles/Vol] 4.9 mmol/L Normal 3.5-5.0 [facility] Comment on above: Order Comment: Specimen Type : ARTERIAL BLOOD SPECIMENOrdering Facility: [facility] Address: [address] [place] [address] Performed By: #### ALLBG ### #[facility] LABORATORYCLIA [id number] [facility], [address] SET VENTILATOR RESPIRATORY RATE (BPM) 16 BPM Normal [facility] Comment on above: Order Comment: Specimen Type : ARTERIAL BLOOD SPECIMENOrdering Facility: [facility] Address: [address] [address] Performed By: #### ALLBG ### #[facility]ORATORYCLIA [id number] [facility], [address] [place] Sodium [Moles/Vol] 134 mmol/L Low 136-144 [facility] Comment on above: Order Comment: Specimen Type : ARTERIAL BLOOD SPECIMENOrdering Facility: [facility] Address: [address] [address] Performed By: #### ALLBG ### #[facility]ORATORYCLIA [id number] [facility], [address] Bacteria Bld Cult on 12-25-2022 Bacteria identified Cx Nom CULTURE, BLOOD: Normal [facility] (Bld) No growth 5 days Center Comment on above: Performed By: #### 600-7 ### #[facility]ORATORYCLIA [id number] [address] OF [facility] Bacteria identified Cx Nom CULTURE, BLOOD: Normal [facility] (Bld) No growth 5 days Center Comment on above: Performed By: #### 600-7 ### #[facility] LABORATORYCLIA [id number] [address] OF [facility] Bacteria Spec Anaerobe Cult on 12-25-19 23 Bacteria identified Anaer CULTURE, ANAEROBE: Normal [facility] cx Nom (Unsp spec) Moderate mixed anaerobic yolanda ra. No Bacteroides fragilis group isolated. No Clostridium perfringens isolated. Center Comment on above: Performed By: #### 25925-9, 83891-2, 635-3 ####[facility] LABORATORYCLIA [id number] [address] [place] Bacteria Tiss Cult on 12-25-2022 Bacteria identified Cx ORGANISM ID: 1 Abnormal Akr on General Nom (Tiss) Few Streptococcus anginosus [facility] ORGANISM ID: 2 Rare skin nando GRAM STAIN: Few Gram positive cocci Rare Gram negative bacilli No Polymorphonuclear Leukocytes Comment on above: Performed By: #### 66544-8, 09301-2, 635-3 ####[facility] LABORATORYCLIA [id number] [address] [place] Basic metabolic 2000 panel on 3 Anion gap [Moles/Vol] 11 mmol/L Normal 9-18 [facility] Comment on above: Order Comment: Specimen Type : BLOOD SPECIMENOrdering Facility: [facility] Address: [address] [address] Performed By: #### 93536-8 # ###[facility] LABORATORYCLIA [id number] [address] STATES OF [facility] Calcium [Mass/Vol] 8.3 mg/dL Low 8.5-10.2 [facility] Comment on above: Order Comment: Specimen Type : BLOOD SPECIMENOrdering Facility: [facility] Address: [address] [address] Performed By: #### 28085-3 # ###[facility] LABORATORYCLIA [id number] [facility], [address] [place] Chloride [Moles/Vol] 100 mmol/L Normal 97-105 [facility] Comment on above: Order Comment: Specimen Type : BLOOD SPECIMENOrdering Facility: [facility] Address: [address] [address] Performed By: #### 89423-4 # ###[facility] LABORATORYIA [id number] [address] [place] CO2 [Moles/Vol] 26 mmol/L Normal 22-30 [facility] Comment on above: Order Comment: Specimen Type : BLOOD SPECIMENOrdering Facility: [facility] Address: [address] [address] Performed By: #### 35035-2 # ###[facility] HOSPITALIA [id number] [address] [place] Creatinine [Mass/Vol] 1.69 mg/dL High 0.58-0.96 [facility] Comment on above: Order Comment: Specimen Type : BLOOD SPECIMENOrdering Facility: [facility] Address: [address] [place] [address] Performed By: #### 63387-5 # ###[facility] LABORATORYIA [id number] [address] [place] ESTIMATED GLOMERULAR 38 mL/min/1.73m??? Low >=60 [facility] FILTRATION RATE Center Comment on above: Order Comment: Specimen Type : BLOOD SPECIMENOrdering Facility: [facility] Address: [address] [address] Result Comment: Estimated Gl omerular Filtration Rate (eGFR) is calculated using the 2020 CK D-EPI creatinine equation. This equation utilizes serum crea tinine, sex, and age as parameters. The creatinine assay has traceab le calibration to isotope dilution-mass spectrometry. Refer to KDIGO guidelines for clinical interpretation. In patients with unstable renal function, e.g. those with acute kidney inju ry, the eGFR may not accurately reflect actual GFR. Performed By: #### 90582-0 # ###[facility] LABORATORYCLIA [id number] [place] [address] [place] Glucose [Mass/Vol] 123 mg/dL High 74-99 [facility] Comment on above: Order Comment: Specimen Type : BLOOD SPECIMENOrdering Facility: [facility] Address: [address] [address] Result Comment: The [place] Diabetes Association (ADA) provides guidance for cutoff values f or fasting glucose and random glucose. The ADA defines fasting as n o caloric intake for at least 8 hours. Fasting plasma glucose resul ts between 100 to 125 mg/dL indicate increased risk for diabetes (prediabetes).Fasting plasma glucose results greater than or equa l to 126 mg/dL meet the criteria for diagnosis of diabetes. In th e absence of unequivocal hyperglycemia, results should be confirmed by repeat testing. In a patient with classic symptoms of hypergly cemia or hyperglycemic crisis, random plasma glucose results great er than or equal to 200 mg/dL meet the criteria for diagnosis of di abetes.Reference: Standards of Medical Care in Diabetes 2016, [employer] [employer]. Diabetes Care. 2016.39(Suppl 1). Performed By: #### 07802-0 # ###[facility] LABORATORYCLIA [id number] [place] [address] [place] Potassium [Moles/Vol] 5.1 mmol/L Normal 3.7-5.1 [facility] Comment on above: Order Comment: Specimen Type : BLOOD SPECIMENOrdering Facility: [facility] Address: [address] [address] Performed By: #### 83825-4 # ###[facility] LABORATORYCLIA [id number] [place] [address] [place] Sodium [Moles/Vol] 137 mmol/L Normal 136-144 [facility] Comment on above: Order Comment: Specimen Type : BLOOD SPECIMENOrdering Facility: [facility] Address: [address] [address] Performed By: #### 91581-6 # ###[facility] LABORATORYCLIA [id number] [place] [address] [place] Urea nitrogen [Mass/Vol] 30 mg/dL High 7-21 [facility] Comment on above: Order Comment: Specimen Type : BLOOD SPECIMENOrdering Facility: [facility] Address: [address] [place] [address] Performed By: #### 33262-5 # ###[facility]ORATORYCLIA [id number] [place] [address] [place] Anion gap [Moles/Vol] 10 mmol/L Normal 9-18 [facility] Comment on above: Order Comment: Specimen Type : BLOOD SPECIMENOrdering Facility: [facility] Address: [address] [address] Performed By: #### 14847-8 # ###[facility]ORATORYCLIA [id number] [place] [address] [place] Calcium [Mass/Vol] 8.6 mg/dL Normal 8.5-10.2 [facility] Comment on above: Order Comment: Specimen Type : BLOOD SPECIMENOrdering Facility: [facility] Address: [address] [address] Performed By: #### 73076-5 # ###[facility]ORATORYCLIA [id number] [place] [address] [place] Chloride [Moles/Vol] 101 mmol/L Normal 97-105 [facility] Comment on above: Order Comment: Specimen Type : BLOOD SPECIMENOrdering Facility: [facility] Address: [address] [address] Performed By: #### 42436-6 # ###[facility]ORATORYCLIA [id number] [place] [address] [place] CO2 [Moles/Vol] 26 mmol/L Normal 22-30 [facility] Comment on above: Order Comment: Specimen Type : BLOOD SPECIMENOrdering Facility: [facility] Address: [address] [address] Performed By: #### 97069-5 # ###[facility] LABORATORYCLIA [id number] [place] [id number] [place] Creatinine [Mass/Vol] 1.52 mg/dL High 0.58-0.96 [facility] Comment on above: Order Comment: Specimen Type : BLOOD SPECIMENOrdering Facility: [facility] Address: [address] [address] Performed By: #### 75320-3 # ###[facility] HOSPITALIA [id number] [place] [id number] [place] ESTIMATED GLOMERULAR 43 mL/min/1.73m??? Low >=60 [facility] FILTRATION RATE Center Comment on above: Order Comment: Specimen Type : BLOOD SPECIMENOrdering Facility: [facility] Address: [address] [place] [address] Result Comment: Estimated Gl omerular Filtration Rate (eGFR) is calculated using the 2020 D-EPI creatinine equation. This equation utilizes serum crea tinine, sex, and age as parameters. The creatinine assay has traceab le calibration to isotope dilution-mass spectrometry. Refer to KDIGO guidelines for clinical interpretation. In patients with unstable renal function, e.g. those with acute kidney inju ry, the eGFR may not accurately reflect actual GFR. Performed By: #### 69065-0 # ###[facility] [id number] [place] [id number] [place] Glucose [Mass/Vol] 92 mg/dL Normal 74-99 [facility] Comment on above: Order Comment: Specimen Type : BLOOD SPECIMENOrdering Facility: [facility] Address: [address] [place] [address] Result Comment: The [place] Diabetes Association (ADA) provides guidance for cutoff values f or fasting glucose and random glucose. The ADA defines fasting as n o caloric intake for at least 8 hours. Fasting plasma glucose resul ts between 100 to 125 mg/dL indicate increased risk for diabetes (prediabetes).Fasting plasma glucose results greater than or equa l to 126 mg/dL meet the criteria for diagnosis of diabetes. In th e absence of unequivocal hyperglycemia, results should be confirmed by repeat testing. In a patient with classic symptoms of hypergly cemia or hyperglycemic crisis, random plasma glucose results great er than or equal to 200 mg/dL meet the criteria for diagnosis of di abetes.Reference: Standards of Medical Care in Diabetes 2016, [employer] [place] Diabetes [employer]. Diabetes Care. 2016.39(Suppl 1). Performed By: #### 47792-0 # ###[facility] LABORATORYCLIA [id number] [address] STATES OF [facility] Potassium [Moles/Vol] 4.9 mmol/L Normal 3.7-5.1 [facility] Comment on above: Order Comment: Specimen Type : BLOOD SPECIMENOrdering Facility: [facility] Address: [address] [address] Performed By: #### 86682-6 # ###[facility] [id number] [address] STATES OF [facility] Sodium [Moles/Vol] 137 mmol/L Normal 136-144 [facility] Comment on above: Order Comment: Specimen Type : BLOOD SPECIMENOrdering Facility: [facility] Address: [address] [address] Performed By: #### 57524-1 # ###[facility]ITALCLIA [id number] [address] [place] Urea nitrogen [Mass/Vol] 29 mg/dL High 7-21 [facility] Comment on above: Order Comment: Specimen Type : BLOOD SPECIMENOrdering Facility: [facility] Address: [address] [address] Performed By: #### 04506-7 # ###[facility] LABORATORYCLIA [id number] [address] [place] CBC panel Auto (Bld) on 12-25-2022 Erythrocyte distribution width 16.6 % High 11.5-15.0 [facility] (RBC) [Ratio] Comment on above: Order Comment: Specimen Type : BLOOD SPECIMENOrdering Facility: [facility] Address: [address] [address] Performed By: #### 79133-0 # ###[facility] LABORATORYCLIA [id number] [facility], [address] [place] Hematocrit (Bld) [Volume fraction] 32.5 % Low 36.0-4 6.0 [facility] Comment on above: Order Comment: Specimen Type : BLOOD SPECIMENOrdering Facility: [facility] Address: [address] [place] [address] Performed By: #### 49784-1 # ###[facility] LABORATORYCLIA [id number] [facility], [address] OF [facility] Hemoglobin (Bld) [Mass/Vol] 9.7 g/dL Low 11.5-15.5 [facility] Comment on above: Order Comment: Specimen Type : BLOOD SPECIMENOrdering Facility: [facility] Address: [address] [place] [address] Performed By: #### 82623-7 # ###[facility] LABORATORYCLIA [id number] [address] [place] MCH (RBC) [Entitic mass] 29.2 pg Normal 26.0-34.0 [facility] Comment on above: Order Comment: Specimen Type : BLOOD SPECIMENOrdering Facility: [facility] Address: [address] [place] [address] Performed By: #### 91969-1 # ###[facility] LABORATORYCLIA [id number] [address] [place] MCHC (RBC) [Mass/Vol] 29.8 g/dL Low 30.5-36.0 [facility] Comment on above: Order Comment: Specimen Type : BLOOD SPECIMENOrdering Facility: [facility] Address: [address] [place] [address] Performed By: #### 78194-5 # ###[facility] LABORATORYCLIA [id number] [address] [place] MCV (RBC) [Entitic vol] 97.9 fL Normal 80.0-100.0 [facility] Comment on above: Order Comment: Specimen Type : BLOOD SPECIMENOrdering Facility: [facility] Address: [address] [address] Performed By: #### 00971-0 # ###[facility] LABORATORYCLIA [id number] [facility] [place] [address] [place] Nucleated RBC (Bld) [#/Vol] 0.03 10*3/uL High <0.01 [facility] Comment on above: Order Comment: Specimen Type : BLOOD SPECIMENOrdering Facility: [facility] Address: [address] [address] Performed By: #### 91370-4 # ###[facility] LABORATORYCLIA [id number] [facility] [place], [facility] [facility] Platelet mean volume (Bld) 9.5 fL Normal 9.0-12.7 [facility] [Entitic vol] Comment on above: Order Comment: Specimen Type : BLOOD SPECIMENOrdering Facility: [facility] Address: [address] [address] Performed By: #### 95267-3 # ###[facility] LABORATORYCLIA [id number] [facility] [place], [place] [id number] [place] [address] OF [place] Platelets (Bld) [#/Vol] 323 10*3/uL Normal 150-400 [facility] Comment on above: Order Comment: Specimen Type : BLOOD SPECIMENOrdering Facility: [facility] Address: [address] Performed By: #### 08155-7 # ###[facility] LABORATORYCLIA [id number] [facility] [place], [place] [address] [place] [address] [place] RBC (Bld) [#/Vol] 3.32 10*6/uL Low 3.90-5.20 [facility] Comment on above: Order Comment: Specimen Type : BLOOD SPECIMENOrdering Facility: [facility] Address: [address] Performed By: #### 77150-1 # ###[facility] LABORATORYCLIA [id number] [facility] [address] OF [place] WBC (Bld) [#/Vol] 19.06 10*3/uL High 3.70-11.00 [facility] Comment on above: Order Comment: Specimen Type : BLOOD SPECIMENOrdering Facility: [facility] Address: [address] [place] [address] Performed By: #### 18717-4 # ###[facility] LABORATORYCLIA [id number] [address] OF [facility] Erythrocyte distribution width 16.5 % High 11.5-15.0 [facility] (RBC) [Ratio] Comment on above: Order Comment: Specimen Type : BLOOD SPECIMENOrdering Facility: [facility] Address: [address] [place] [address] Performed By: #### 56208-3 # ###[facility] LABORATORYCLIA [id number] [address] Hematocrit (Bld) [Volume fraction] 32.4 % Low 36.0-4 6.0 [facility] Comment on above: Order Comment: Specimen Type : BLOOD SPECIMENOrdering Facility: [facility] Address: [address] [place] [address] Performed By: #### 08967-0 # ###[facility] LABORATORYCLIA [id number] [address] OF [facility] Hemoglobin (Bld) [Mass/Vol] 9.4 g/dL Low 11.5-15.5 [facility] Comment on above: Order Comment: Specimen Type : BLOOD SPECIMENOrdering Facility: [facility] Address: [address] [place] [address] Performed By: #### 57301-8 # ###[facility] LABORATORYCLIA [id number] [address] MCH (RBC) [Entitic mass] 28.2 pg Normal 26.0-34.0 [facility] Comment on above: Order Comment: Specimen Type : BLOOD SPECIMENOrdering Facility: [facility] Address: [address] [address] Performed By: #### 89125-4 # ###[facility] LABORATORYCLIA [id number] [facility] MCHC (RBC) [Mass/Vol] 29.0 g/dL Low 30.5-36.0 [facility] Comment on above: Order Comment: Specimen Type : BLOOD SPECIMENOrdering Facility: [facility] Address: [address] [address] Performed By: #### 96890-9 # ###[facility] LABORATORYCLIA [id number] [facility] EN[facility]ENTERRON[address] MCV (RBC) [Entitic vol] 97.3 fL Normal 80.0-100.0 [facility] Comment on above: Order Comment: Specimen Type : BLOOD SPECIMENOrdering Facility: [facility] Address: [address] [address] Performed By: #### 20610-3 # ###[facility] LABORATORYCLIA [id number] [address] Nucleated RBC (Bld) [#/Vol] 10*3/uL Normal <0.01 [facility] Comment on above: Order Comment: Specimen Type : BLOOD SPECIMENOrdering Facility: [facility] Address: [address] [address] Performed By: #### 72252-6 # ###[facility] LABORATORYCLIA [id number] [facility] EN[facility] CENTERRON, [address] Platelet mean volume (Bld) 9.7 fL Normal 9.0-12.7 [facility] [Entitic vol] Comment on above: Order Comment: Specimen Type : BLOOD SPECIMENOrdering Facility: [facility] Address: [address] [address] Performed By: #### 66451-2 # ###[facility] LABORATORYCLIA [id number] [facility] [place], [address] Platelets (Bld) [#/Vol] 308 10*3/uL Normal 150-400 [facility] Comment on above: Order Comment: Specimen Type : BLOOD SPECIMENOrdering Facility: [facility] Address: [address] [place] [address] Performed By: #### 75031-4 # ###[facility] LABORATORYCLIA [id number] [facility] [place] [place] [address] [place] RBC (Bld) [#/Vol] 3.33 10*6/uL Low 3.90-5.20 [facility] Comment on above: Order Comment: Specimen Type : BLOOD SPECIMENOrdering Facility: [facility] Address: [address] [place] [address] Performed By: #### 17236-5 # ###[facility] LABORATORYCLIA [id number] [facility] [place] [address] [place] WBC (Bld) [#/Vol] 17.43 10*3/uL High 3.70-11.00 [facility] Comment on above: Order Comment: Specimen Type : BLOOD SPECIMENOrdering Facility: [facility] Address: [address] [place] [address] Performed By: #### 31056-5 # ###[facility] LABORATORYCLIA [id number] [facility] [place] [place] [address] [facility] OF [place] CNCRITCR on 12-25-2022 CNCRITCR Normal [facility] CONSULT PROG on 12-25-2022 CONSULT PROG Normal [facility] CONSULT PROG Normal [facility] CONSULT PROG Normal [facility] ECG COMPLETE on 12-25-2022 ECG COMPLETE Normal [facility] ED NOTE on 12-25-2022 ED NOTE HNO ID: [id number] [facility] Author: Claire Sanchez RN Service: Emergency Medicine Author Type: Registered Nurse Type: ED Notes Filed: 12/25/2022 3:16 AM Note Text: Depart to OR ED NOTE HNO ID: [id number] Normal [facility] Author: Claire Sanchez RN Service: Emergency Medicine Author Type: Registered Nurse Type: ED Notes Filed: 12/25/2022 2:39 AM Note Text: Dr. Reyes at bedside to evaluate pt ED NOTE HNO ID: [id number] [facility] Author: Claire Sanchez RN Service: Emergency Medicine Author Type: Registered Nurse Type: ED Notes Filed: 12/25/2022 2:29 AM Note Text: EKG performed at bedside ED NOTE HNO ID: [id number] [facility] Author: Claire Sanchez RN Service: Emergency Medicine Author Type: Registered Nurse Type: ED Notes Filed: 12/25/2022 2:28 AM Note Text: ED NOTE HNO ID: [id number] [facility] Author: Claire Sanchez RN Service: Emergency Medicine Author Type: Registered Nurse Type: ED Notes Filed: 12/25/2022 2:29 AM Note Text: Surgery at bedside ED NOTE Normal [facility] ED NOTE HNO ID: [id number] [facility] Author: Claire Sanchez RN Service: Emergency Medicine Author Type: Registered Nurse Type: ED Notes Filed: 12/25/2022 1:56 AM Note Text: Dr. Saleh at bedside to evaluate pt ED NOTE HNO ID: [id number] [facility] Author: Sirena Redman RN Service: ? Author Type: Registered Nurse Type: ED Notes Filed: 12/25/2022 1:44 AM Note Text: Bed: 01-ED Expected date: Expected time: Means of arrival: Comments: Inguinal issue ED PROV NOTE on 12-25-2022 ED PROV NOTE Normal [facility] FLUABV+SARS-CoV-2+RSV Pnl Resp SURESH+probe on 12-25-2022 FLUABV+SARS-CoV-2+RSV Pnl Resp SURESH+probe Normal [facility] Comment on above: Performed By: #### 12264-0 # ###[facility] LABORATORYCLIA [id number] [place] [address] [facility] HIGH SENSITIVITY TROPONIN T on 12-25-19 23 HIGH SENSITIVITY CATERINA 23 ng/L High <12 [facility] Comment on above: Order Comment: Specimen Type : BLOOD SPECIMENOrdering Facility: [facility] Address: [address] [place] [address] Result Comment: When assessi ng risk for acute coronary syndromes: In patients undergoing blood draw greater than or equal to 2 hours from symptom onset, with his tory of very low to moderate risk and non-ischemic ECG, an initial hs-Troponin T less than 12 ng/L AND a 1 hour delta hs-Troponin T l ess than 3 ng/L should be considered very low risk for 30 day MAC E. Performed By: #### HSTNT ### #[facility] LABORATORYCLIA [id number] [address] HIGH SENSITIVITY CATERINA 34 ng/L High <12 [facility] Comment on above: Order Comment: Specimen Type : BLOOD SPECIMENOrdering Facility: [facility] Address: [address] [place] [address] Result Comment: When assessi ng risk for acute coronary syndromes: In patients undergoing blood draw greater than or equal to 2 hours from symptom onset, with his tory of very low to moderate risk and non-ischemic ECG, an initial hs-Troponin T less than 12 ng/L AND a 1 hour delta hs-Troponin T l ess than 3 ng/L should be considered very low risk for 30 day MAC E. Performed By: #### HSTNT ### #[facility] LABORATORYCLIA [id number] [address] HISTORY PHYSICAL on 12-25-2022 HISTORY PHYSICAL Normal [facility] Lactate (Bld) [Moles/Vol] on 12-25-2022 Lactate [Moles/Vol] 0.8 mmol/L Normal 0.5-2.[address] [facility] Comment on above: Order Comment: Specimen Type : BLOOD SPECIMENOrdering Facility: [facility] Address: [address] [place] [address] Performed By: #### 17737-3 # ###[facility] LABORATORYCLIA [id number] [address] Microorganism Spec Cult on 12-25-2022 Microorganism identified Cx CULTURE, FUNGAL: Normal [facility] (Unsp spec) No Fungus isolated after 28 days Center FUNGAL SMEAR: No fungus seen Comment on above: Performed By: #### 06354-7, 49786-3, 635-3 ####[facility] LABORATORYCLIA [id number] [place] [address] [facility] Microorganism identified Cx CULTURE, AFB: Normal [facility] (Unsp spec) No Acid Fast Bacilli isolated after 42 days Center AFB STAIN: No acid fast bacilli seen by flurochrome stain Comment on above: Performed By: #### 96847-9, 39522-6, 635-3 ####[facility] LABORATORYCLIA [id number] [place] [address] [facility] NUTRITION on 12-25-2022 NUTRITION Normal [facility] OPERATIVE NO on 12-25-2022 OPERATIVE NO Normal [facility] PT panel Coag (PPP) on 12-25-2022 INR Coag (PPP) [Relative time] 1.1 {INR} Normal 0.9-1.3 [facility] Comment on above: Order Comment: Specimen Type : BLOOD SPECIMENOrdering Facility: [facility] Address: [address] [place] [id number] Result Comment: Vitamin K An tagonist (VKA) Therapeutic Range: INR 2 to 3 (Target INR of 2.5)Note : For patients treated with VKA drugs, such as warfarin, the [place] an College of Chest [employer] 2012 Guideline recommends a thera peutic INR range of 2 to 3 (target INR of 2.5). This recommendation includes high-risk patients with antiphospholipid syndrome wi th previous arterial or venous thromboembolism, current-gen eration mechanical or bioprosthetic aortic heart valve replaceme nt.Note: Patients with mechanical aortic valve replacement and additional risk factors for thromboembolic events (atria l fibrillation, previous thromboembolism, LV dysfunct ion, hypercoagulable conditions) or an older generation mechanical AVR (i.e., ball in-Cage) or any mechanical MVR should have a INR therapeutic range of 2.5 to 3.5 (target INR of 3).Gela JUNIOR, et al. Chest 2012, 141:7S-47SNishimdarlene RA, et al. [facility] 2017, 70: 25 2-289 Performed By: #### 06877-6 # ###[facility] LABORATORYCLIA [id number] [address] [place] PT Coag (PPP) [Time] 11.6 s Normal 9.7-13.0 [facility] Comment on above: Order Comment: Specimen Type : BLOOD SPECIMENOrdering Facility: [facility] Address: [address] [place] [address] Performed By: #### 51910-1 # ###[facility] LABORATORYIA [id number] [address] STAPH AUREUS PCR on 12-25-2022 S. aureus and MRSA panel SURESH+probe Abnormal Negati ve [facility] (Nose) Comment on above: Order Comment: Specimen Type : SWAB OF INTERNAL NOSEOrdering Facility: [facility] Address: [address] [place] [address] Result Comment: Positive for Staphylococcus aureus by PCR.Positive for MRSA by PCR Performed By: #### SAPCR ### #[facility]ITALIA [id number] [address] SURGICAL PATHOLOGY on 12-25-2022 CASE REPORT Normal [facility] Comment on above: Order Comment: Specimen Type : TISSUE SPECIMENOrdering Facility: [facility] Address: [address] [place] [address] Result Comment: Surgical Pat hology Report Case: [id number] Provi mame: Hubert Leblanc MD Collected: 12/25/2022 04:15 AMOrdering Location: [place] [facility] Received: 12/25/2022 08:[address]: Eran Melgar, DOSpecimen: DEBRIDEMENT, LEFT GROIN WOUN D Performed By: #### S ####[facility] LABORATORYCLIA [id number] [facility], [address] CLINICAL HISTORY Normal [facility] Comment on above: Order Comment: Specimen Type : TISSUE SPECIMENOrdering Facility: [facility] Address: [address] [place] [address] Result Comment: Pre-op diagn osis:Necrotizing soft tissue infection [M79.89] Performed By: #### S ####[facility] LABORATORYCLIA [id number] [address] DIAGNOSIS COMMENT Correlation with microbiologic Normal [facility] studies is necessary. Center Comment on above: Order Comment: Specimen Type : TISSUE SPECIMENOrdering Facility: [facility] Address: [address] [place] [address] Performed By: #### S ####[facility] LABORATORYCLIA [id number] [address] FINAL DIAGNOSIS Normal [facility] Comment on above: Order Comment: Specimen Type : TISSUE SPECIMENOrdering Facility: [facility] Address: [address] [place] [address] Result Comment: A. Left groi n wound, debridement:- Skin and soft tissue with suppurative acut e inflammation and focal gangrenous necrosis. See comment.Electr onically signed by Eran Melgar DO on 12/30/2022 at 9:18 AM Performed By: #### S ####[facility] LABORATORYCLIA [id number] [address] FINAL PERFORMING LAB Normal [facility] Comment on above: Order Comment: Specimen Type : TISSUE SPECIMENOrdering Facility: [facility] Address: [address] [place] [address] Result Comment: Diagnostic i nterpretation performed at [facility], [address] [place] [address] CLIA# [id number] oratory Director: Faraz Sawant M.D. Performed By: #### S ####[facility] LABORATORYCLIA [id number] [address] GROSS DESCRIPTION A. DEBRIDEMENT Normal [facility] Comment on above: Order Comment: Specimen Type : TISSUE SPECIMENOrdering Facility: [facility] Address: [address] [place] [address] Result Comment: A. Received in formalin labeled left groin wound are multiple brennan-pink to brennan -green rubbery and ischemic appearing segments of tissue aggregati ng to 15.0 x 7.8 x 3.5 cm. Multiple segments of skin are present and display a pmy-wkwp-myh to pink-green ischemic appearan ce. Careers Counsellor sections are submitted in formalin in 3 c assettes. Gross examination performed at [facility], [address] [place], [place] [address]OWR J anuary 2022 11:27 AM Performed By: #### S ####[facility] LABORATORYCLIA [id number] [facility] [address] [facility] TYPE + SCREEN on 12-25-2022 ABO O Normal [facility] Comment on above: Order Comment: Specimen Type : BLOOD SPECIMENOrdering Facility: [facility] Address: [address] [place] [address] Performed By: #### TSCR #### [facility] BLOOD BANKCLIA [id number] [address] HISTORICAL AB SCR STATUS Negative Normal [facility] Comment on above: Order Comment: Specimen Type : BLOOD SPECIMENOrdering Facility: [facility] Address: [address] [place] [address] Performed By: #### TSCR #### [facility] BLOOD BANKCLIA [id number] [address] Rh Nom (Bld) Negative Normal [facility] Comment on above: Order Comment: Specimen Type : BLOOD SPECIMENOrdering Facility: [facility] Address: [address] [place] [address] Performed By: #### TSCR #### [facility] BLOOD BANKCLIA [id number] [place] [id number] [facility] TYPE AND SCREEN EXPIRATION 12/28/2022 23:59 Normal [facility] Comment on above: Order Comment: Specimen Type : BLOOD SPECIMENOrdering Facility: [facility] Address: [address] [address] Performed By: #### TSCR #### [facility] BLOOD BANKCLIA [id number] [place] [address] [place] XR CHEST 1V FRONTAL on 12-25-2022 XR CHEST 1V FRONTAL Normal [facility] XR CHEST 1V FRONTAL Normal [facility] CNPN on 12-24-2022 CNPN Normal [facility] CNPN on 12-20-2022 CNPN Normal [facility] CNPN on 12-12-2022 CNPN Normal [facility] CNPN on 12-05-2022 CNPN Normal [facility] 25([place])D3 SerPl-mCnc on 11-11-2022 25-hydroxyvitamin D3 [Mass/Vol] 33.1 ng/mL Normal 31.0-80.0 [facility] Comment on above: Order Comment: Specimen Type : BLOOD SPECIMENOrdering Facility: [facility] Address: [address] [id number] Result Comment: Classificati on of 25 [place] Vitamin D status:Deficiency/Insufficie ncy: < or = 30 ng/ml.Sufficiency/Optimal Le vels: 31-80 ng/mLToxicity: > 100 ng/mL.Test performed by chem iluminescent immunoassay. Performed By: #### 1989-3 ## ##[facility] LABCLIA [id number] [facility] [id number] [id number] [place] CNPN on 11-11-[address] [facility] metabolic 2000 panel on 01-12-2022 Albumin [Mass/Vol] 3.7 g/dL Low 3.9-4.9 [facility] Comment on above: Order Comment: Specimen Type : BLOOD SPECIMENOrdering Facility: [facility] Address: [address] [place] [address] Performed By: #### 79116-6 # ###[facility] HOSPITALNCLIA [id number] [address] [facility] [place] [address] [place] ALP [Catalytic activity/Vol] 69 U/L Normal 34-123 [facility] Comment on above: Order Comment: Specimen Type : BLOOD SPECIMENOrdering Facility: [facility] Address: [address] [place] [address] Performed By: #### 09160-3 # ###[facility] MILLTOWNCLIA [id number] [place] [address] [place] ALT [Catalytic activity/Vol] 24 U/L Normal 7-38 [facility] Comment on above: Order Comment: Specimen Type : BLOOD SPECIMENOrdering Facility: [facility] Address: [address] [place] [address] Performed By: #### 95939-6 # ###[facility] MILLTOWNCLIA [id number] [place] [address] [place] Anion gap [Moles/Vol] 12 mmol/L Normal 9-18 [place] Comment on above: Order Comment: Specimen Type : BLOOD SPECIMENOrdering Facility: [facility] Address: [address] [place] [address] Performed By: #### 61689-5 # ###[facility] MILLTOWNCLIA [id number] [place] [address] [place] AST [Catalytic activity/Vol] 19 U/L Normal 13-35 [facility] Comment on above: Order Comment: Specimen Type : BLOOD SPECIMENOrdering Facility: [facility] Address: [address] [place] [address] Performed By: #### 16510-7 # ###[facility] MILLTOWNCLIA [id number] [address] [facility] [address] [place] Bilirubin [Mass/Vol] 0.2 mg/dL Normal 0.2-1.3 [facility] Comment on above: Order Comment: Specimen Type : BLOOD SPECIMENOrdering Facility: [facility] Address: [address] [facility] [facility] [place] [address] Performed By: #### 46841-8 # ###[facility] MILLTOWNCLIA [id number] [place] [address] [place] Calcium [Mass/Vol] 9.4 mg/dL Normal 8.5-10.2 [facility] Comment on above: Order Comment: Specimen Type : BLOOD SPECIMENOrdering Facility: [facility] Address: [address] [place] [address] Performed By: #### 49834-8 # ###[facility] MILLTOWNCLIA [id number] [place] [address] [place] Chloride [Moles/Vol] 90 mmol/L Low 97-105 [facility] Comment on above: Order Comment: Specimen Type : BLOOD SPECIMENOrdering Facility: [facility] Address: [address] [place] [address] Performed By: #### 90282-0 # ###[facility] MILLWNCLIA [id number] [place] [address] [place] CO2 [Moles/Vol] 30 mmol/L Normal 22-30 [facility] Comment on above: Order Comment: Specimen Type : BLOOD SPECIMENOrdering Facility: [facility] Address: [address] Performed By: #### 32281-9 # ###[facility] MILLTOWNCLIA [id number] [place] [address] [place] Creatinine [Mass/Vol] 1.27 mg/dL High 0.58-0.96 [place] Comment on above: Order Comment: Specimen Type : BLOOD SPECIMENOrdering Facility: [facility] Address: [address] [address] Performed By: #### 75409-7 # ###[facility] HOSPITALLI [id number] [place] [address] [place] ESTIMATED GLOMERULAR 53 mL/min/1.73m??? Low >=60 C [facility] FILTRATION RATE Comment on above: Order Comment: Specimen Type : BLOOD SPECIMENOrdering Facility: [facility] Address: [address] [place] [address] Result Comment: Estimated Gl omerular Filtration Rate (eGFR) is calculated using the 2020 CK D-EPI creatinine equation. This equation utilizes serum crea tinine, sex, and age as parameters. The creatinine assay has traceab le calibration to isotope dilution-mass spectrometry. Refer to KDIGO guidelines for clinical interpretation. In patients with unstable renal function, e.g. those with acute kidney inju ry, the eGFR may not accurately reflect actual GFR. Performed By: #### 13883-0 # ###[facility] [id number] [place] [address] [place] Glucose [Mass/Vol] 221 mg/dL High 74-99 [facility] Comment on above: Order Comment: Specimen Type : BLOOD SPECIMENOrdering Facility: [facility] Address: [address] [place] [address] Result Comment: The Indian Diabetes Association (ADA) provides guidance for cutoff values f or fasting glucose and random glucose. The ADA defines fasting as n o caloric intake for at least 8 hours. Fasting plasma glucose resul ts between 100 to 125 mg/dL indicate increased risk for diabetes (prediabetes).Fasting plasma glucose results greater than or equa l to 126 mg/dL meet the criteria for diagnosis of diabetes. In th e absence of unequivocal hyperglycemia, results should be confirmed by repeat testing. In a patient with classic symptoms of hypergly cemia or hyperglycemic crisis, random plasma glucose results great er than or equal to 200 mg/dL meet the criteria for diagnosis of di abetes.Reference: Standards of Medical Care in Diabetes 2016, [facility] Diabetes Association. Diabetes Care. 2016.39(Suppl 1). Performed By: #### 99653-1 # ###[facility] [id number] [place] [address] [place] Potassium [Moles/Vol] 4.9 mmol/L Normal 3.7-5.1 [place] Comment on above: Order Comment: Specimen Type : BLOOD SPECIMENOrdering Facility: [facility] Address: [address] [place] [address] Performed By: #### 76111-4 # ###[facility] MILLTOWNCLIA [id number] [place] [address] [place] Protein [Mass/Vol] 6.9 g/dL Normal 6.3-8.0 [facility] Comment on above: Order Comment: Specimen Type : BLOOD SPECIMENOrdering Facility: [facility] Address: [address] [place] [address] Performed By: #### 86464-3 # ###[facility] MILLTOWKALILIA [id number] [place] [address] [place] Sodium [Moles/Vol] 132 mmol/L Low 136-144 [facility] Comment on above: Order Comment: Specimen Type : BLOOD SPECIMENOrdering Facility: [facility] Address: [address] [place] [address] Performed By: #### 23410-4 # ###[facility] MILLTOWNCLIA [id number] [place] [address] [place] Urea nitrogen [Mass/Vol] 44 mg/dL High 7-21 [facility] Comment on above: Order Comment: Specimen Type : BLOOD SPECIMENOrdering Facility: [facility] Address: [address] [place] [address] Performed By: #### 25327-3 # ###[facility] MILLTOWNCLIA [id number] [place] [address] [place] Albumin [Mass/Vol] 3.7 g/dL Low 3.9 - 4.9 g/dL [facility] ALP [Catalytic 69 U/L 34 - 123 U/L [facility] rebecca activity/Vol] ALT [Catalytic 24 U/L 7 - 38 U/L [facility] rebecca activity/Vol] Anion gap [Moles/Vol] 12 mmol/L 9 - 18 mmol/L [facility] AST [Catalytic 19 U/L 13 - 35 U/L [facility] rebecca activity/Vol] Bilirubin [Mass/Vol] 0.2 mg/dL 0.2 - 1.3 mg/dL [facility] Calcium [Mass/Vol] 9.4 mg/dL 8.5 - 10.2 mg/dL [facility] Chloride [Moles/Vol] 90 mmol/L Low 97 - 105 mmol/L [facility] CO2 [Moles/Vol] 30 mmol/L 22 - 30 mmol/L [facility] Creatinine [Mass/Vol] 1.27 mg/dL High 0.58 - 0.96 mg/dL C [facility] Estimated Glomerular 53 mL/min/1.73m Low >=60 mL/min/1.73m [facility] Filtration Rate Glucose [Mass/Vol] 221 mg/dL High 74 - 99 mg/dL [facility] Potassium [Moles/Vol] 4.9 mmol/L 3.7 - 5.1 mmol/L [facility] Protein [Mass/Vol] 6.9 g/dL 6.3 - 8.0 g/dL [facility] Sodium [Moles/Vol] 132 mmol/L Low 136 - 144 mmol/L [facility] Urea nitrogen [Mass/Vol] 44 mg/dL High 7 - 21 mg/dL [facility] HbA1c (Bld) on 11-11-2022 Average glucose Estimated from glycated 243 mg/dL Normal [facility] hemoglobin (Bld) [Mass/Vol] Comment on above: Order Comment: Specimen Type : BLOOD SPECIMENOrdering Facility: [facility] Address: [address] [place] [id number] Result Comment: eAG: (Estima mitul average glucose) is a calculated value from HgbA1c and is rep resentative of the average blood glucose level in the last 2- 3 month period. Performed By: #### 01164-9 # ###[facility] LABCLIA [id number] [place] [id number] [place] HbA1c (Bld) [Mass fraction] 10.1 % High 4.3-5.6 [facility] Comment on above: Order Comment: Specimen Type : BLOOD SPECIMENOrdering Facility: [facility] Address: [address] [facility] [place] [address] Result Comment: Indian Richard betes Association guidelines indicate that patients with HgbA1c in the range 5.7-6.4% are at increased risk for development of diab etes, and intervention by lifestyle modification may be benefici al. HgbA1c greater or equal to 6.5% is considered diagnostic of richard betes. Performed By: #### 16653-4 # ###[facility] LABIA [id number] [place] [id number] [place] Comprehensive metabolic 2000 panel on 01-10-2022 Albumin [Mass/Vol] 3.8 g/dL Low 3.9 - 4.9 g/dL [facility] ALP [Catalytic 65 U/L 34 - 123 U/L [facility] activity/Vol] ALT [Catalytic 36 U/L 7 - 38 U/L [facility] activity/Vol] Anion gap [Moles/Vol] 17 mmol/L 9 - 18 mmol/L [facility] AST [Catalytic 44 U/L High 13 - 35 U/L [facility] rebecca activity/Vol] Bilirubin [Mass/Vol] 0.3 mg/dL 0.2 - 1.3 mg/dL [facility] Calcium [Mass/Vol] 9.6 mg/dL 8.5 - 10.2 mg/dL [facility] Chloride [Moles/Vol] 82 mmol/L Low 97 - 105 mmol/L [facility] CO2 [Moles/Vol] 29 mmol/L 22 - 30 mmol/L [facility] Creatinine [Mass/Vol] 2.32 mg/dL High 0.58 - 0.96 mg/dL C [facility] Estimated Glomerular 26 mL/min/1.73m Low >=60 mL/min/1.73m [facility] Filtration Rate Glucose [Mass/Vol] 107 mg/dL High 74 - 99 mg/dL [facility] Potassium [Moles/Vol] 5.6 mmol/L High 3.7 - 5.1 mmol/L Cl [facility] Protein [Mass/Vol] 6.7 g/dL 6.3 - 8.0 g/dL [facility] Sodium [Moles/Vol] 128 mmol/L Low 136 - 144 mmol/L [facility] Urea nitrogen [Mass/Vol] 71 mg/dL High 7 - 21 mg/dL [facility] HbA1c (Bld) on 11-09-2022 Average glucose Estimated from glycated 235 mg/dL [facility] hemoglobin (Bld) [Mass/Vol] HbA1c (Bld) [Mass fraction] 9.8 % High 4.3 - 5.6 % [facility] CNOV on 11-08-2022 CNOV Normal [facility] metabolic 2000 panel on 01-09-2022 Albumin [Mass/Vol] 3.8 g/dL Low 3.9-4.9 [facility] Comment on above: Order Comment: Specimen Type : BLOOD SPECIMENOrdering Facility: [facility] Address: [address] [place] [place] [address] Performed By: #### 49971-1 # ###[facility] LABIA [id number] [place] [address] [place] ALP [Catalytic activity/Vol] 65 U/L Normal 34-123 [facility] Comment on above: Order Comment: Specimen Type : BLOOD SPECIMENOrdering Facility: [facility] Address: [address] [place] [address] Performed By: #### 99262-3 # ###[facility] LABCLIA [id number] [place] [address] [place] ALT [Catalytic activity/Vol] 36 U/L Normal 7-38 [facility] Comment on above: Order Comment: Specimen Type : BLOOD SPECIMENOrdering Facility: [facility] Address: [address] [place] [address] Performed By: #### 92651-7 # ###[facility] LABCLIA [id number] [place] [address] [place] Anion gap [Moles/Vol] 17 mmol/L Normal 9-18 [place] Comment on above: Order Comment: Specimen Type : BLOOD SPECIMENOrdering Facility: [facility] Address: [address] [place] [address] Performed By: #### 10480-5 # ###[facility] LABCLIA [id number] [place] [address] [place] AST [Catalytic activity/Vol] 44 U/L High 13-35 [facility] Comment on above: Order Comment: Specimen Type : BLOOD SPECIMENOrdering Facility: [facility] Address: [address] [place] [address] Performed By: #### 06085-9 # ###[facility] LABCLIA [id number] [place] [address] [place] Bilirubin [Mass/Vol] 0.3 mg/dL Normal 0.2-1.3 [facility] Comment on above: Order Comment: Specimen Type : BLOOD SPECIMENOrdering Facility: [facility] Address: [address] [place] [address] Performed By: #### 83458-1 # ###[facility] LABCLIA [id number] [place] [address] [place] Calcium [Mass/Vol] 9.6 mg/dL Normal 8.5-10.2 [facility] Comment on above: Order Comment: Specimen Type : BLOOD SPECIMENOrdering Facility: [facility] Address: [address] Performed By: #### 91977-8 # ###[facility] LABCLIA [id number] [place] [address] [place] Chloride [Moles/Vol] 82 mmol/L Low 97-105 [facility] Comment on above: Order Comment: Specimen Type : BLOOD SPECIMENOrdering Facility: [facility] Address: [address] [place], [place] [address] Performed By: #### 56468-8 # ###[facility] LABCLIA [id number] [place] [address] [place] CO2 [Moles/Vol] 29 mmol/L Normal 22-30 [facility] Comment on above: Order Comment: Specimen Type : BLOOD SPECIMENOrdering Facility: [facility] Address: [address] [place] [address] Performed By: #### 12481-0 # ###[facility] LABIA [id number] [place] [address] [place] Creatinine [Mass/Vol] 2.32 mg/dL High 0.58-0.96 [place] Comment on above: Order Comment: Specimen Type : BLOOD SPECIMENOrdering Facility: [facility] Address: [address] [place] [address] Performed By: #### 57561-1 # ###[facility] LABIA [id number] [place] [address] [place] ESTIMATED GLOMERULAR 26 mL/min/1.73m??? Low >=60 C [facility] FILTRATION RATE Comment on above: Order Comment: Specimen Type : BLOOD SPECIMENOrdering Facility: [facility] Address: [address] [place] [address] Result Comment: Estimated Gl omerular Filtration Rate (eGFR) is calculated using the 2020 D-EPI creatinine equation. This equation utilizes serum crea tinine, sex, and age as parameters. The creatinine assay has traceab le calibration to isotope dilution-mass spectrometry. Refer to KDIGO guidelines for clinical interpretation. In patients with unstable renal function, e.g. those with acute kidney inju ry, the eGFR may not accurately reflect actual GFR. Performed By: #### 56270-0 # ###[facility] LABIA [id number] [place] [address] [place] Glucose [Mass/Vol] 107 mg/dL High 74-99 [facility] Comment on above: Order Comment: Specimen Type : BLOOD SPECIMENOrdering Facility: [facility] Address: [address] [place] [address] Result Comment: The [place] Diabetes Association (ADA) provides guidance for cutoff values f or fasting glucose and random glucose. The ADA defines fasting as n o caloric intake for at least 8 hours. Fasting plasma glucose resul ts between 100 to 125 mg/dL indicate increased risk for diabetes (prediabetes).Fasting plasma glucose results greater than or equa l to 126 mg/dL meet the criteria for diagnosis of diabetes. In th e absence of unequivocal hyperglycemia, results should be confirmed by repeat testing. In a patient with classic symptoms of hypergly cemia or hyperglycemic crisis, random plasma glucose results great er than or equal to 200 mg/dL meet the criteria for diagnosis of di abetes.Reference: Standards of Medical Care in Diabetes 2016, [facility] Diabetes Association. Diabetes Care. 2016.39(Suppl 1). Performed By: #### 02299-5 # ###[facility] LABCLIA [id number] [place] [address] [place] Potassium [Moles/Vol] 5.6 mmol/L High 3.7-5.1 [place] Comment on above: Order Comment: Specimen Type : BLOOD SPECIMENOrdering Facility: [facility] Address: [address] [place], [place] [address] Performed By: #### 50688-7 # ###[facility] LABCLIA [id number] [place] [address] [place] Protein [Mass/Vol] 6.7 g/dL Normal 6.3-8.0 [facility] Comment on above: Order Comment: Specimen Type : BLOOD SPECIMENOrdering Facility: [facility] Address: [address] [place] [address] Performed By: #### 95627-0 # ###[facility] LABCLIA [id number] [place] [address] [place] Sodium [Moles/Vol] 128 mmol/L Low 136-144 [facility] Comment on above: Order Comment: Specimen Type : BLOOD SPECIMENOrdering Facility: [facility] Address: [address] [place] [address] Performed By: #### 62926-0 # ###[facility] LABCLIA [id number] [place] [address] [place] Urea nitrogen [Mass/Vol] 71 mg/dL High 7-21 [facility] Comment on above: Order Comment: Specimen Type : BLOOD SPECIMENOrdering Facility: [facility] Address: [address] [place] [address] Performed By: #### 18226-2 # ###[facility] LABCLIA [id number] [place] [address] [place] HbA1c (Bld) on 11-08-2022 Average glucose Estimated from glycated 235 mg/dL Normal [facility] hemoglobin (Bld) [Mass/Vol] Comment on above: Order Comment: Specimen Type : BLOOD SPECIMENOrdering Facility: [facility] Address: [address] [place] [address] Result Comment: eAG: (Estima mitul average glucose) is a calculated value from HgbA1c and is rep resentative of the average blood glucose level in the last 2- 3 month period. Performed By: #### 08259-9 # ###[facility] LABCLIA [id number] [address] [place] HbA1c (Bld) [Mass fraction] 9.8 % High 4.3-5.6 [facility] Comment on above: Order Comment: Specimen Type : BLOOD SPECIMENOrdering Facility: [facility] Address: [address] [place] [address] Result Comment: [place] Richard betes Association guidelines indicate that patients with HgbA1c in the range 5.7-6.4% are at increased risk for development of diab etes, and intervention by lifestyle modification may be benefici al. HgbA1c greater or equal to 6.5% is considered diagnostic of richard betes. Performed By: #### 11886-2 # ###[facility] LABCLIA [id number] [facility] [place] [address] [place] CNOV on 11-06-2022 CNOV Normal [facility] CNPN on 11-05-2022 CNPN Normal [facility] CNPN on 10-22-2022 CNPN Normal [facility] CNPN on 10-21-2022 CNPN Normal [facility] MAGNESIUM BLD on 10-19-2022 Magnesium [Mass/Vol] 2.0 mg/dL 1.7 - 2.3 mg/dL [facility] PHOSPHORUS INORGANIC on 10-19-2022 Phosphate [Mass/Vol] 3.4 mg/dL 2.7 - 4.8 mg/dL [facility] TSH BLD on 10-19-2022 TSH Qn 4.130 m[IU]/L 0.270 - 4.200 mIU/L [facility] CBC W Auto Differential panel (Bld) on 10-18-2022 Basophils (Bld) [#/Vol] 0.05 10*3/uL Normal <0.11 [facility] Comment on above: Order Comment: Specimen Type : BLOOD SPECIMENOrdering Facility: [facility] Address: [address] [place] [address] Performed By: #### 07732-7 # ###[facility] [id number] [place] [address] [place] Basophils/100 WBC (Bld) 0.6 % Normal [facility] Comment on above: Order Comment: Specimen Type : BLOOD SPECIMENOrdering Facility: [facility] Address: [address] [place], [place] [id number] Performed By: #### 35342-8 # ###[facility] [id number] [place] [address] [place] Differential cell count method Nom (Bld) Auto Normal [facility] Comment on above: Order Comment: Specimen Type : BLOOD SPECIMENOrdering Facility: [facility] Address: [address] [place], [place] [id number] Performed By: #### 26716-4 # ###[facility] MILLTOWNCLIA [id number] [place] [address] [place] Eosinophils (Bld) [#/Vol] 0.25 10*3/uL Normal <0.46 [facility] Comment on above: Order Comment: Specimen Type : BLOOD SPECIMENOrdering Facility: [facility] Address: [address] [place] [address] Performed By: #### 57614-8 # ###[facility] MILLWNCLIA [id number] [place] [address] [place] Eosinophils/100 WBC (Bld) 2.8 % Normal [facility] Comment on above: Order Comment: Specimen Type : BLOOD SPECIMENOrdering Facility: [facility] Address: [address] [place] [address] Performed By: #### 33533-7 # ###[facility]ENTER[facility]CLIA [id number] [place] [address] [place] Erythrocyte distribution width (RBC) 17.0 % High 11.5 -15.0 [facility] [Ratio] Comment on above: Order Comment: Specimen Type : BLOOD SPECIMENOrdering Facility: [facility] Address: [address] [place] [address] Performed By: #### 05647-3 # ###[facility] MILLWNCLIA [id number] [address] [place] Hematocrit (Bld) [Volume fraction] 43.7 % Normal 36.0-4 6.0 [facility] Comment on above: Order Comment: Specimen Type : BLOOD SPECIMENOrdering Facility: [facility] Address: [address] [place] [address] Performed By: #### 75339-5 # ###[facility] MILLWNCLIA [id number] [place] [address] [place] Hemoglobin (Bld) [Mass/Vol] 12.9 g/dL Normal 11.5-15.5 [facility] Comment on above: Order Comment: Specimen Type : BLOOD SPECIMENOrdering Facility: [facility] Address: [address] [place] [address] Performed By: #### 61803-6 # ###[facility]ENTER[facility]CLIA [id number] [place] [address] [place] Immature granulocytes (Bld) 0.08 10*3/uL Normal <0.10 [facility] [#/Vol] Comment on above: Order Comment: Specimen Type : BLOOD SPECIMENOrdering Facility: [facility] Address: [address] [place] [address] Performed By: #### 74321-1 # ###[facility] [id number] [place] [address] [place] Immature granulocytes/100 WBC (Bld) 0.9 % Normal [facility] Comment on above: Order Comment: Specimen Type : BLOOD SPECIMENOrdering Facility: [facility] Address: [address] [place] [address] Performed By: #### 79651-1 # ###[facility] [id number] [place] [address] [place] Lymphocytes (Bld) [#/Vol] 1.57 10*3/uL Normal 1.00-4.00 [facility] Comment on above: Order Comment: Specimen Type : BLOOD SPECIMENOrdering Facility: [facility] Address: [address] [place] [address] Performed By: #### 08660-4 # ###[facility] [id number] [place] [address] [place] Lymphocytes/100 WBC (Bld) 17.8 % Normal [facility] Comment on above: Order Comment: Specimen Type : BLOOD SPECIMENOrdering Facility: [facility] Address: [address] [place] [address] Performed By: #### 61652-6 # ###[facility] [id number] [address] [place] MCH (RBC) [Entitic mass] 27.7 pg Normal 26.0-34.0 [facility] Comment on above: Order Comment: Specimen Type : BLOOD SPECIMENOrdering Facility: [facility] Address: [address] [place] [address] Performed By: #### 17735-8 # ###[facility] [id number] [place] [address] [place] MCHC (RBC) [Mass/Vol] 29.5 g/dL Low 30.5-36.0 [place] Comment on above: Order Comment: Specimen Type : BLOOD SPECIMENOrdering Facility: [facility] Address: [address] [place] [address] Performed By: #### 19827-0 # ###[facility] HOSPITALShaq [id number] [address] [place] MCV (RBC) [Entitic vol] 93.8 fL Normal 80.0-100.0 [facility] Comment on above: Order Comment: Specimen Type : BLOOD SPECIMENOrdering Facility: [facility] Address: [address] [place] [address] Performed By: #### 80392-0 # ###[facility] [id number] [place] [address] [facility] [place] Monocytes (Bld) [#/Vol] 0.38 10*3/uL Normal <0.87 [facility] Comment on above: Order Comment: Specimen Type : BLOOD SPECIMENOrdering Facility: [facility] Address: [address] [address] Performed By: #### 37620-5 # ###[facility] MILLTOWNCLIA [id number] [place] [address] [place] Monocytes/100 WBC (Bld) 4.3 % Normal [facility] Comment on above: Order Comment: Specimen Type : BLOOD SPECIMENOrdering Facility: [facility] Address: [address] [place] [address] Performed By: #### 24173-2 # ###[facility] MILLTOWNCLIA [id number] [place] [address] [place] Neutrophils (Bld) [#/Vol] 6.50 10*3/uL Normal 1.45-7.50 [facility] Comment on above: Order Comment: Specimen Type : BLOOD SPECIMENOrdering Facility: [facility] Address: [address] [place] [address] Performed By: #### 13079-3 # ###[facility]ITALNCLIA [id number] [place] [address] [place] Neutrophils/100 WBC (Bld) 73.6 % Normal [facility] Comment on above: Order Comment: Specimen Type : BLOOD SPECIMENOrdering Facility: [facility] Address: [address] [address] Performed By: #### 81765-6 # ###[facility] MILLWNCLIA [id number] [place] [address] [place] Nucleated RBC (Bld) [#/Vol] 10*3/uL Normal <0.01 [facility] Comment on above: Order Comment: Specimen Type : BLOOD SPECIMENOrdering Facility: [facility] Address: [address] [address] Performed By: #### 85776-6 # ###[facility] MILLWNCLIA [id number] [place] [address] [place] Nucleated RBC/100 WBC (Bld) [Ratio] 0.0 /100 WBC Normal [facility] Comment on above: Order Comment: Specimen Type : BLOOD SPECIMENOrdering Facility: [facility] Address: [address] [place] [address] Performed By: #### 43488-5 # ###[facility] [id number] [place] [address] [place] Platelet mean volume (Bld) [Entitic 9.8 fL Normal 9.0-1 2.7 [facility] [facility] vol[facility] Comment on above: Order Comment: Specimen Type : BLOOD SPECIMENOrdering Facility: [facility] Address: [address] [place] [address] Performed By: #### 72036-2 # ###JAY HOSPITALKALIShaq [id number] [place] [address] [place] Platelets (Bld) [#/Vol] 188 10*3/uL Normal 150-400 [facility] Comment on above: Order Comment: Specimen Type : BLOOD SPECIMENOrdering Facility: [facility] Address: [address] [place] [address] Performed By: #### 54107-0 # ###JAY HOSPITALAYALAA [id number] [place] [address] [place] RBC (Bld) [#/Vol] 4.66 10*6/uL Normal 3.90-5.20 [facility] Comment on above: Order Comment: Specimen Type : BLOOD SPECIMENOrdering Facility: [facility] Address: [address] [place] [address] Performed By: #### 15919-3 # ###JAY HOSPITALKALILIA [id number] [place] [address] [place] WBC (Bld) [#/Vol] 8.83 10*3/uL Normal 3.70-11.00 [facility] Comment on above: Order Comment: Specimen Type : BLOOD SPECIMENOrdering Facility: [facility] Address: [place] [address] Performed By: #### 29921-7 # ###[facility] [id number] [place] [address] [place] Basophils (Bld) [#/Vol] 0.05 10*3/uL <0.11 k/uL [facility] Basophils/100 WBC (Bld) 0.6 % [facility] Differential cell count method Auto [facility] Nom (Bld) Eosinophils (Bld) [#/Vol] 0.25 10*3/uL <0.46 k/uL [facility] Eosinophils/100 WBC (Bld) 2.8 % [facility] Erythrocyte distribution width 17.0 % High 11.5 - 15. 0 % [facility] (RBC) [Ratio] Hematocrit (Bld) [Volume 43.7 % 36.0 - 46.0 % [facility] fraction] Hemoglobin (Bld) [Mass/Vol] 12.9 g/dL 11.5 - 15.5 g /dL [facility] Immature granulocytes (Bld) 0.08 10*3/uL <0.10 k/uL [facility] [#/Vol] Immature granulocytes/100 WBC 0.9 % [facility] (Bld) Lymphocytes (Bld) [#/Vol] 1.57 10*3/uL 1.00 - 4.00 k/u L [facility] Lymphocytes/100 WBC (Bld) 17.8 % [facility] MCH (RBC) [Entitic mass] 27.7 pg 26.0 - 34.0 pg C [facility] MCHC (RBC) [Mass/Vol] 29.5 g/dL Low 30.5 - 36.0 g/dL [facility] MCV (RBC) [Entitic vol] 93.8 fL 80.0 - 100.0 fL C [facility] Monocytes (Bld) [#/Vol] 0.38 10*3/uL <0.87 k/uL [facility] Monocytes/100 WBC (Bld) 4.3 % [facility] Neutrophils (Bld) [#/Vol] 6.50 10*3/uL 1.45 - 7.50 k/u L [facility] Neutrophils/100 WBC (Bld) 73.6 % [facility] Nucleated RBC (Bld) [#/Vol] <0.01 k/uL [facility] Nucleated RBC/100 WBC (Bld) 0.0 /100 WBC [facility] [Ratio] Platelet mean volume (Bld) 9.8 fL 9.0 - 12.7 fL [facility] [Entitic vol] Platelets (Bld) [#/Vol] 188 10*3/uL 150 - 400 k/uL [facility] RBC (Bld) [#/Vol] 4.66 10*6/uL 3.90 - 5.20 m/uL [facility] WBC (Bld) [#/Vol] 8.83 10*3/uL 3.70 - 11.00 k/uL [facility] CNOV on 10-18-2022 CNOV Normal [facility] CNPN on 10-18-2022 CNPN Normal [facility] Comprehensive metabolic 2000 panel on 12-18-2021 Albumin [Mass/Vol] 4.2 g/dL Normal 3.9-4.9 [facility] Comment on above: Order Comment: Specimen Type : BLOOD SPECIMENOrdering Facility: [facility] Address: [address] [address] Performed By: #### 02250-2 # ###[facility] [id number] [place] [address] [place] [facility] ALP [Catalytic activity/Vol] 68 U/L Normal 34-123 [facility] Comment on above: Order Comment: Specimen Type : BLOOD SPECIMENOrdering Facility: [facility] Address: [address] [address] Performed By: #### 82693-5 # ###[facility] [id number] [place] [address] [place] ALT [Catalytic activity/Vol] 24 U/L Normal 7-38 [facility] Comment on above: Order Comment: Specimen Type : BLOOD SPECIMENOrdering Facility: [facility] Address: [address] [place] [address] Performed By: #### 27097-7 # ###[facility] MILLTOWNCLIA [id number] [place] [address] [place] Anion gap [Moles/Vol] 10 mmol/L Normal 9-18 [place] Comment on above: Order Comment: Specimen Type : BLOOD SPECIMENOrdering Facility: [facility] Address: [address] [address] Performed By: #### 07131-6 # ###[facility] MILLTOWNCLIA [id number] [place] [address] [place] AST [Catalytic activity/Vol] 33 U/L Normal 13-35 [facility] Comment on above: Order Comment: Specimen Type : BLOOD SPECIMENOrdering Facility: [facility] Address: [address] [place] [address] Performed By: #### 30291-8 # ###[facility] MILLTOWNCLIA [id number] [place] [address] [place] Bilirubin [Mass/Vol] 0.2 mg/dL Normal 0.2-1.3 [facility] Comment on above: Order Comment: Specimen Type : BLOOD SPECIMENOrdering Facility: [facility] Address: [address] [address] Performed By: #### 71354-7 # ###[facility] MILLTOWNCLIA [id number] [place] [address] [place] Calcium [Mass/Vol] 10.2 mg/dL Normal 8.5-10.2 [facility] Comment on above: Order Comment: Specimen Type : BLOOD SPECIMENOrdering Facility: [facility] Address: [address] [address] Performed By: #### 49619-9 # ###[facility] MILLTOWNCLIA [id number] [place] [address] [place] Chloride [Moles/Vol] 91 mmol/L Low 97-105 [facility] Comment on above: Order Comment: Specimen Type : BLOOD SPECIMENOrdering Facility: [facility] Address: [address] [place] [address] Performed By: #### 87810-4 # ###[facility] MILLTOWNCLIA [id number] [place] [address] [place] CO2 [Moles/Vol] 39 mmol/L High 22-30 [facility] Comment on above: Order Comment: Specimen Type : BLOOD SPECIMENOrdering Facility: [facility] Address: [address] [place] [address] Performed By: #### 12514-6 # ###[facility]ENTERWNCLIA [id number] [place] [address] [place] Creatinine [Mass/Vol] 0.95 mg/dL Normal 0.58-0.96 [place] Comment on above: Order Comment: Specimen Type : BLOOD SPECIMENOrdering Facility: [facility] Address: [address] [place] [address] Performed By: #### 73234-5 # ###JAY HOSPITALNCLIA [id number] [address] [place] ESTIMATED GLOMERULAR 75 mL/min/1.73m??? Normal >=60 C [facility] FILTRATION RATE Comment on above: Order Comment: Specimen Type : BLOOD SPECIMENOrdering Facility: [facility] Address: [address] [place] [address] Result Comment: Estimated Gl omerular Filtration Rate (eGFR) is calculated using the 2020 CK D-EPI creatinine equation. This equation utilizes serum crea tinine, sex, and age as parameters. The creatinine assay has traceab le calibration to isotope dilution-mass spectrometry. Refer to KDIGO guidelines for clinical interpretation. In patients with unstable renal function, e.g. those with acute kidney inju ry, the eGFR may not accurately reflect actual GFR. Performed By: #### 11332-0 # ###[facility] MILLTOWNCLIA [id number] [place] [address] [place] Glucose [Mass/Vol] 180 mg/dL High 74-99 [facility] Comment on above: Order Comment: Specimen Type : BLOOD SPECIMENOrdering Facility: [facility] Address: [place] [address] Result Comment: The Indian Diabetes Association (ADA) provides guidance for cutoff values f or fasting glucose and random glucose. The ADA defines fasting as n o caloric intake for at least 8 hours. Fasting plasma glucose resul ts between 100 to 125 mg/dL indicate increased risk for diabetes (prediabetes).Fasting plasma glucose results greater than or equa l to 126 mg/dL meet the criteria for diagnosis of diabetes. In th e absence of unequivocal hyperglycemia, results should be confirmed by repeat testing. In a patient with classic symptoms of hypergly cemia or hyperglycemic crisis, random plasma glucose results great er than or equal to 200 mg/dL meet the criteria for diagnosis of di abetes.Reference: Standards of Medical Care in Diabetes 2016, [facility] Diabetes Association. Diabetes Care. 2016.39(Suppl 1). Performed By: #### 07163-5 # ###[facility] MILLTOWNCLIA [id number] [place] [address] [place] Potassium [Moles/Vol] 4.3 mmol/L Normal 3.7-5.1 [place] Comment on above: Order Comment: Specimen Type : BLOOD SPECIMENOrdering Facility: [facility] Address: [place] [address] Performed By: #### 60001-9 # ###[facility] MILLTOWNCLIA [id number] [place] [address] [place] Protein [Mass/Vol] 7.4 g/dL Normal 6.3-8.0 [facility] Comment on above: Order Comment: Specimen Type : BLOOD SPECIMENOrdering Facility: [facility] Address: [address] [place] [address] Performed By: #### 65276-2 # ###[facility] MILLTOWNCLIA [id number] [place] [address] [place] Sodium [Moles/Vol] 140 mmol/L Normal 136-144 [facility] Comment on above: Order Comment: Specimen Type : BLOOD SPECIMENOrdering Facility: [facility] Address: [address] [place] [address] Performed By: #### 36588-6 # ###[facility] MILLTOWNCLIA [id number] [place] [address] [place] Urea nitrogen [Mass/Vol] 22 mg/dL High 7-21 [facility] Comment on above: Order Comment: Specimen Type : BLOOD SPECIMENOrdering Facility: [facility] Address: [address] [place] [address] Performed By: #### 13981-6 # ###[facility] MILLTOWNCLIA [id number] [place] [address] [place] Albumin [Mass/Vol] 4.2 g/dL 3.9 - 4.9 g/dL [facility] ALP [Catalytic 68 U/L 34 - 123 U/L [facility] activity/Vol] ALT [Catalytic 24 U/L 7 - 38 U/L [facility] activity/Vol] Anion gap [Moles/Vol] 10 mmol/L 9 - 18 mmol/L [facility] AST [Catalytic 33 U/L 13 - 35 U/L [facility] rebecca activity/Vol] Bilirubin [Mass/Vol] 0.2 mg/dL 0.2 - 1.3 mg/dL [facility] Calcium [Mass/Vol] 10.2 mg/dL 8.5 - 10.2 mg/dL [facility] Chloride [Moles/Vol] 91 mmol/L Low 97 - 105 mmol/L [facility] CO2 [Moles/Vol] 39 mmol/L High 22 - 30 mmol/L [facility] Creatinine [Mass/Vol] 0.95 mg/dL 0.58 - 0.96 mg/dL C [facility] Estimated Glomerular 75 mL/min/1.73m >=60 mL/min/1.73m [facility] Filtration Rate Glucose [Mass/Vol] 180 mg/dL High 74 - 99 mg/dL [facility] Potassium [Moles/Vol] 4.3 mmol/L 3.7 - 5.1 mmol/L Cl [facility] Protein [Mass/Vol] 7.4 g/dL 6.3 - 8.0 g/dL [facility] Sodium [Moles/Vol] 140 mmol/L 136 - 144 mmol/L [facility] Urea nitrogen [Mass/Vol] 22 mg/dL High 7 - 21 mg/dL [facility] ECG01 on 10-18-2022 ECG01 Normal [facility] Magnesium SerPl-mCnc on 10-18-2022 Magnesium [Mass/Vol] 2.0 mg/dL Normal 1.7-2.3 [facility] Comment on above: Order Comment: Specimen Type : BLOOD SPECIMENOrdering Facility: [facility] Address: [address] [place] [id number] Performed By: #### 2777-1, 1 9123-08, 3016-01 ####[facility] LABCLIA [id number] [address] [address] [place] Phosphate SerPl-mCnc on 10-18-2022 Phosphate [Mass/Vol] 3.4 mg/dL Normal 2.7-4.8 [facility] Comment on above: Order Comment: Specimen Type : BLOOD SPECIMENOrdering Facility: [facility] Address: [place] [address] Performed By: #### 2777-1, 1 52, 3 ####[facility] LABCLIA [id number] [address] [place] TSH SerPl-aCnc on 10-18-2022 TSH Qn 4.130 m[IU]/L Normal 0.270-4.200 [facility] Comment on above: Order Comment: Specimen Type : BLOOD SPECIMENOrdering Facility: [facility] Address: [address] [place] [address] Result Comment: If the patie nt is , TSH reference range varies by gestational period :First Trimester (weeks 9-12): 0.180-2.990 mIU/LSecond Trim esha: 0.110-3.980 mIU/LThird Trimester: 0.480-4.710 mIU/L Mark Ritchie et al. A Practical Approach for the Verifications and De termination of Site- and Trimester-Specific Reference Intervals for Thyroid Function tests in . Thyroid, 2019: 29:3:412-420. Noel Mei, et al. 2017 Guidelines of the Indian T hyroid Association for the Diagnosis and Management of Thyroid Di sease during and the . Thyroid, 2017:27 :3:315-389. Performed By: #### 2777-1, 1 9123-9, 3016-3 ####[facility] LABCLIA [id number] [place] [address] [place] XR CHEST 2V FRONTAL/LAT on 10-18-2022 XR CHEST 2V FRONTAL/LAT Normal [facility] CNPN on 09-09-2022 CNPN Normal [facility] CNOV on 07-23-2022 CNOV Normal [facility] CNPN on 07-11-2022 CNPN Normal [facility] ALBUMIN/CREAT RATIO RND UR on 07-09-20 22 Albumin DL <= 20 mg/L (U) [Mass/Vol] 20.0 mg/L Normal [facility] Comment on above: Order Comment: Specimen Type : URINE SPECIMENOrdering Facility: [facility] Address: [address] [place] [address] Performed By: #### UACR #### [facility] LABCLIA [id number] [place] [address] [place] Albumin/Creatinine (U) [Mass ratio] 63 mg/g High <30 [facility] Comment on above: Order Comment: Specimen Type : URINE SPECIMENOrdering Facility: [facility] Address: [address] [place] [address] Result Comment: Adult Male a nd Female Nephrotic Criteria:<30 mg/g is considered normal to mild ly [id number] mg/g is considered moderately increased>300 mg/ g is considered severely increasedKDIGO. (2013). KDIG O 2012 Clinical Practice Guideline for the Evaluation and Managemen t of Chronic Kidney Disease. Official Journal of the International Society of Nephrology, 3(1), 1-150. Performed By: #### UACR #### [facility] LABCLIA [id number] [place] [address] [place] Creatinine (U) [Mass/Vol] 31.5 mg/dL Normal 20.0-300.0 [facility] Comment on above: Order Comment: Specimen Type : URINE SPECIMENOrdering Facility: [facility] Address: [address] [place], [place] [id number] Performed By: #### UACR #### [facility] LABCLIA [id number] [place] [address] [place] CNOV on 07-09-2022 CNOV Normal [facility] CNPN on 07-09-2022 CNPN Normal [facility] Comprehensive metabolic 2000 panel on 0 07-09-2022 Albumin [Mass/Vol] 4.1 g/dL Normal 3.9-4.9 [facility] Comment on above: Order Comment: Specimen Type : BLOOD SPECIMENOrdering Facility: [facility] Address: [address] [id number] Performed By: #### 39928-1, 78268-8 ####[facility] LABCLIA [id number] [address] [address] [place] ALP [Catalytic activity/Vol] 58 U/L Normal 34-123 [facility] Comment on above: Order Comment: Specimen Type : BLOOD SPECIMENOrdering Facility: [facility] Address: [address] Performed By: #### 14801-2, 42137-6 ####[facility] LABCLIA [id number] 0 [facility] [place] [id number] [place] ALT [Catalytic activity/Vol] 30 U/L Normal 7-38 [facility] Comment on above: Order Comment: Specimen Type : BLOOD SPECIMENOrdering Facility: [facility] Address: [address] [place], [place] [address] Performed By: #### 08519-6, 04094-7 ####[facility] LABCLIA [id number] 0 [facility] [place] [address] [place] Anion gap [Moles/Vol] 12 mmol/L Normal 9-18 [place] Comment on above: Order Comment: Specimen Type : BLOOD SPECIMENOrdering Facility: [facility] Address: [address] [place], [place] [address] Performed By: #### 04246-1, 03025-5 ####[facility] LABCLIA [id number] 0 [facility] [place] [address] [place] AST [Catalytic activity/Vol] 38 U/L High 13-35 [facility] Comment on above: Order Comment: Specimen Type : BLOOD SPECIMENOrdering Facility: [facility] Address: [address] [place] [address] Performed By: #### 63168-9, 63079-9 ####[facility] LABCLIA [id number] 0 [facility] [place] [address] [place] Bilirubin [Mass/Vol] 0.3 mg/dL Normal 0.2-1.3 [facility] Comment on above: Order Comment: Specimen Type : BLOOD SPECIMENOrdering Facility: [facility] Address: [address] [place] [address] Performed By: #### 38384-9, 56741-2 ####[facility] LABCLIA [id number] [address] [address] [place] Calcium [Mass/Vol] 10.5 mg/dL High 8.5-10.2 [facility] Comment on above: Order Comment: Specimen Type : BLOOD SPECIMENOrdering Facility: [facility] Address: [address] [place] [address] Performed By: #### 15750-4, 92775-9 ####[facility] LABCLIA [id number] [address] [id number] [place] Chloride [Moles/Vol] 93 mmol/L Low 97-105 [facility] Comment on above: Order Comment: Specimen Type : BLOOD SPECIMENOrdering Facility: [facility] Address: [address] [place] [address] Performed By: #### 20811-1, 59881-8 ####[facility] LABCLIA [id number] [address] [place] [id number] [place] CO2 [Moles/Vol] 33 mmol/L High 22-30 [facility] Comment on above: Order Comment: Specimen Type : BLOOD SPECIMENOrdering Facility: [facility] Address: [address] [place] [address] Performed By: #### 89251-8, 47094-7 ####[facility] LABCLIA [id number] 0 [facility] [address] [address] [place] Creatinine [Mass/Vol] 0.73 mg/dL Normal 0.58-0.96 [place] Comment on above: Order Comment: Specimen Type : BLOOD SPECIMENOrdering Facility: [facility] Address: [address] [place] [address] Performed By: #### 50079-6, 15069-7 ####[facility] LABIA [id number] [address] ESTIMATED GLOMERULAR 104 mL/min/1.73m??? Normal >=60 [facility] FILTRATION RATE Comment on above: Order Comment: Specimen Type : BLOOD SPECIMENOrdering Facility: [facility] Address: [address] [place] [address] Result Comment: Estimated Gl omerular Filtration Rate (eGFR) is calculated using the 2020 CK D-EPI creatinine equation. This equation utilizes serum crea tinine, sex, and age as parameters. The creatinine assay has traceab le calibration to isotope dilution-mass spectrometry. Refer to KDIGO guidelines for clinical interpretation. In patients with unstable renal function, e.g. those with acute kidney inju ry, the eGFR may not accurately reflect actual GFR. Performed By: #### 85775-3, 87273-9 ####[facility] LABIA [id number] [address] Glucose [Mass/Vol] 165 mg/dL High 74-99 [facility] Comment on above: Order Comment: Specimen Type : BLOOD SPECIMENOrdering Facility: [facility] Address: [address] [place] [address] Result Comment: The [place] Diabetes Association (ADA) provides guidance for cutoff values f or fasting glucose and random glucose. The ADA defines fasting as n o caloric intake for at least 8 hours. Fasting plasma glucose resul ts between 100 to 125 mg/dL indicate increased risk for diabetes (prediabetes).Fasting plasma glucose results greater than or equa l to 126 mg/dL meet the criteria for diagnosis of diabetes. In th e absence of unequivocal hyperglycemia, results should be confirmed by repeat testing. In a patient with classic symptoms of hypergly cemia or hyperglycemic crisis, random plasma glucose results great er than or equal to 200 mg/dL meet the criteria for diagnosis of di abetes.Reference: Standards of Medical Care in Diabetes 2016, [facility] Diabetes Association. Diabetes Care. 2016.39(Suppl 1). Performed By: #### 54005-9, 11256-6 ####[facility] LABCLIA [id number] 0 [facility] [place] [id number] [place] Potassium [Moles/Vol] 4.6 mmol/L Normal 3.7-5.1 [place] Comment on above: Order Comment: Specimen Type : BLOOD SPECIMENOrdering Facility: [facility] Address: [address] [place], [place] [address] Performed By: #### 40809-1, 59897-3 ####[facility] LABCLIA [id number] 0 [place] [address] [place] Protein [Mass/Vol] 7.3 g/dL Normal 6.3-8.0 [facility] Comment on above: Order Comment: Specimen Type : BLOOD SPECIMENOrdering Facility: [facility] Address: [address] [place], [place] [address] Performed By: #### 63612-7, 61063-5 ####[facility] LABCLIA [id number] 0 [place] [address] [place] Sodium [Moles/Vol] 138 mmol/L Normal 136-144 [facility] Comment on above: Order Comment: Specimen Type : BLOOD SPECIMENOrdering Facility: [facility] Address: [address] [place], [place] [address] Performed By: #### 54614-5, 08243-1 ####[facility] LABCLIA [id number] 0 [place] [address] [place] Urea nitrogen [Mass/Vol] 11 mg/dL Normal 7-21 [facility] Comment on above: Order Comment: Specimen Type : BLOOD SPECIMENOrdering Facility: [facility] Address: [address] [place] [address] Performed By: #### 78015-4, 03304-5 ####[facility] LABCLIA [id number] 0 [facility] [place] [id number] [place] HbA1c (Bld) on 08-09-2022 Average glucose Estimated from glycated 232 mg/dL Normal [facility] hemoglobin (Bld) [Mass/Vol] Comment on above: Order Comment: Specimen Type : BLOOD SPECIMENOrdering Facility: [facility] Address: [address] [place] [address] Result Comment: eAG: (Estima mitul average glucose) is a calculated value from HgbA1c and is rep resentative of the average blood glucose level in the last 2- 3 month period. Performed By: #### 59895-6 # ###[facility] LABCLIA [id number] [place] [address] [place] HbA1c (Bld) [Mass fraction] 9.7 % High 4.3-5.6 [facility] Comment on above: Order Comment: Specimen Type : BLOOD SPECIMENOrdering Facility: [facility] Address: [address] [place], [place] [id number] Result Comment: Indian Richard betes Association guidelines indicate that patients with HgbA1c in the range 5.7-6.4% are at increased risk for development of diab etes, and intervention by lifestyle modification may be benefici al. HgbA1c greater or equal to 6.5% is considered diagnostic of richard betes. Performed By: #### 21549-3 # ###[facility] LABCLIA [id number] [place] [address] [place] NT-proBNP [facility] on 07-09-2022 Natriuretic peptide.B prohormone 55 pg/mL Normal <125 [facility] N-Terminal [Mass/Vol] Comment on above: Order Comment: Specimen Type : BLOOD SPECIMENOrdering Facility: [facility] Address: [address] [place] [address] Performed By: #### 07959-3, 19055-5 ####[facility] LABCLIA [id number] [address] [place] XR CHEST 2V FRONTAL/LAT on 07-09-2022 XR CHEST 2V FRONTAL/LAT Normal [facility] CNPN on 07-03-2022 CNPN Normal [facility] CNPN on 06-28-2022 CNPN Normal [facility] CNPN on 2022 CNPN Normal [facility] CNPN on 06-20-2022 CNPN Normal [facility] CNPN on 06-13-2022 CNPN Normal [facility] CNPTOUTREACH on 05-29-2022 CNPTOUTREACH Normal [facility] CNPN on 04-09-2022 CNPN Normal [facility] CNPN on 04-03-2022 CNPN Normal [facility] CNPN on 03-29-2022 CNPN Normal [facility] CNPN on 03-28-2022 CNPN Normal [facility] CNPN on 03-20-2022 CNPN Normal [facility] CNOV on 03-19-2022 CNOV Normal [facility] Comprehensive metabolic 2000 panel on 03-19-2022 Albumin [Mass/Vol] 4.0 g/dL Normal 3.9-4.9 [facility] Comment on above: Order Comment: Specimen Type : BLOOD SPECIMENOrdering Facility: [facility] Address: [address] [place] [address] Performed By: #### 18309-4 # ###[facility] [id number] [place] [address] [place] ALP [Catalytic activity/Vol] 71 U/L Normal 34-123 [facility] Comment on above: Order Comment: Specimen Type : BLOOD SPECIMENOrdering Facility: [facility] Address: [address] [place] [address] Performed By: #### 82660-2 # ###[facility] LABIA [id number] [place] [address] [place] ALT [Catalytic activity/Vol] 22 U/L Normal 7-38 [facility] Comment on above: Order Comment: Specimen Type : BLOOD SPECIMENOrdering Facility: [facility] Address: [address] [place], [place] [address] Performed By: #### 39719-5 # ###[facility] LABCLIA [id number] [place] [address] [place] Anion gap [Moles/Vol] 10 mmol/L Normal 9-18 [place] Comment on above: Order Comment: Specimen Type : BLOOD SPECIMENOrdering Facility: [facility] Address: [address] [place], [place] [address] Performed By: #### 32992-5 # ###[facility] LABCLIA [id number] [place] [address] [place] AST [Catalytic activity/Vol] 30 U/L Normal 13-35 [facility] Comment on above: Order Comment: Specimen Type : BLOOD SPECIMENOrdering Facility: [facility] Address: [address] [place], [place] [address] Performed By: #### 90390-9 # ###[facility] LABCLIA [id number] [place] [address] [place] Bilirubin [Mass/Vol] 0.2 mg/dL Normal 0.2-1.3 [facility] Comment on above: Order Comment: Specimen Type : BLOOD SPECIMENOrdering Facility: [facility] Address: [address] [place] [address] Performed By: #### 97627-9 # ###[facility] LABCLIA [id number] [place] [address] [place] Calcium [Mass/Vol] 9.8 mg/dL Normal 8.5-10.2 [facility] Comment on above: Order Comment: Specimen Type : BLOOD SPECIMENOrdering Facility: [facility] Address: [address] [place], [place] [address] Performed By: #### 15787-3 # ###[facility] LABCLIA [id number] [place] [address] [place] Chloride [Moles/Vol] 95 mmol/L Low 97-105 [facility] Comment on above: Order Comment: Specimen Type : BLOOD SPECIMENOrdering Facility: [facility] Address: [address] [place] [address] Performed By: #### 78279-6 # ###[facility] LABCLIA [id number] [place] [address] [place] CO2 [Moles/Vol] 33 mmol/L High 22-30 [facility] Comment on above: Order Comment: Specimen Type : BLOOD SPECIMENOrdering Facility: [facility] Address: [address] [place] [address] Performed By: #### 55465-5 # ###[facility] LABCLIA [id number] [place] [address] [place] Creatinine [Mass/Vol] 0.78 mg/dL Normal 0.58-0.96 [place] Comment on above: Order Comment: Specimen Type : BLOOD SPECIMENOrdering Facility: [facility] Address: [address] [place] [address] Performed By: #### 76219-2 # ###[facility] LABIA [id number] [place] [address] [place] ESTIMATED GLOMERULAR 96 mL/min/1.73m??? Normal >=60 C [facility] FILTRATION RATE Comment on above: Order Comment: Specimen Type : BLOOD SPECIMENOrdering Facility: [facility] Address: [address] [place] [address] Result Comment: Estimated Gl omerular Filtration Rate (eGFR) is calculated using the 2020 CK D-EPI creatinine equation. This equation utilizes serum crea tinine, sex, and age as parameters. The creatinine assay has traceab le calibration to isotope dilution-mass spectrometry. Refer to KDIGO guidelines for clinical interpretation. In patients with unstable renal function, e.g. those with acute kidney inju ry, the eGFR may not accurately reflect actual GFR. Performed By: #### 58325-3 # ###[facility] LABIA [id number] [place] [address] [place] Glucose [Mass/Vol] 251 mg/dL High 74-99 [facility] Comment on above: Order Comment: Specimen Type : BLOOD SPECIMENOrdering Facility: [facility] Address: [address] [place], [place] [id number] Result Comment: The Indian Diabetes Association (ADA) provides guidance for cutoff values f or fasting glucose and random glucose. The ADA defines fasting as n o caloric intake for at least 8 hours. Fasting plasma glucose resul ts between 100 to 125 mg/dL indicate increased risk for diabetes (prediabetes).Fasting plasma glucose results greater than or equa l to 126 mg/dL meet the criteria for diagnosis of diabetes. In th e absence of unequivocal hyperglycemia, results should be confirmed by repeat testing. In a patient with classic symptoms of hypergly cemia or hyperglycemic crisis, random plasma glucose results great er than or equal to 200 mg/dL meet the criteria for diagnosis of di abetes.Reference: Standards of Medical Care in Diabetes 2016, Ameri [facility] Diabetes Association. Diabetes Care. 2016.39(Suppl 1). Performed By: #### 16465-3 # ###[facility] LABIA [id number] [place] [address] [place] Potassium [Moles/Vol] 4.9 mmol/L Normal 3.7-5.1 [place] Comment on above: Order Comment: Specimen Type : BLOOD SPECIMENOrdering Facility: [facility] Address: [address] [place] [id number] Performed By: #### 32248-0 # ###[facility] LABIA [id number] [place] [address] [place] Protein [Mass/Vol] 6.7 g/dL Normal 6.3-8.0 [facility] Comment on above: Order Comment: Specimen Type : BLOOD SPECIMENOrdering Facility: [facility] Address: [address] Performed By: #### 66064-4 # ###[facility] LABIA [id number] [place] [address] [place] Sodium [Moles/Vol] 138 mmol/L Normal 136-144 [facility] Comment on above: Order Comment: Specimen Type : BLOOD SPECIMENOrdering Facility: [facility] Address: [address] [place] [address] Performed By: #### 95661-5 # ###[facility] LABIA [id number] [place] [address] [place] Urea nitrogen [Mass/Vol] 13 mg/dL Normal 7-21 [facility] Comment on above: Order Comment: Specimen Type : BLOOD SPECIMENOrdering Facility: [facility] Address: [address] [place] [address] Performed By: #### 60490-6 # ###[facility] [id number] [place] [address] [place] HGB A1C on 03-19-2022 Average glucose Estimated from glycated 263 mg/dL Normal [facility] hemoglobin (Bld) [Mass/Vol] Comment on above: Order Comment: Specimen Type : BLOOD SPECIMENOrdering Facility: [facility] Address: [address] [place] [address] Result Comment: eAG: (Estima mtiul average glucose) is a calculated value from HgbA1c and is rep resentative of the average blood glucose level in the last 2- 3 month period. Performed By: #### HBA1C ### #[facility] [id number] [place] [address] [place] HbA1c (Bld) [Mass fraction] 10.8 % High 4.3-5.6 [facility] Comment on above: Order Comment: Specimen Type : BLOOD SPECIMENOrdering Facility: [facility] Address: [address] [place] [address] Result Comment: Indian Richard betes Association guidelines indicate that patients with HgbA1c in the range 5.7-6.4% are at increased risk for development of diab etes, and intervention by lifestyle modification may be benefici al. HgbA1c greater or equal to 6.5% is considered diagnostic of richard betes. Performed By: #### HBA1C ### #[facility] LABCLIA [id number] [place] [address] [place] UA DIP, URINE (POC) on 03-19-2022 BILIRUBIN UA (POCT) Negative Negative [facility] CLARITY UA (POCT) Clear [facility] COLOR UA (POCT) Yellow [facility] inic GLUCOSE UA (POCT) 500 mg/dL Abnormal Negative mg/dL [facility] HEMOGLOBIN/BLOOD UA (POCT) Negative Negative C leveland [facility] KETONE UA (POCT) Negative Negative mg/dL [facility] LEUKOCYTES UA (POCT) Negative Negative [facility] NITRITE UA (POCT) Negative Negative [facility] PH UA (POCT) 7.0 4.5 - 8.0 [facility] c Protein Ql (U) Negative Negative mg/dL [facility] SPECIFIC GRAVITY UA (POCT) 1.020 1.005 - 1.030 [facility] UROBILINOGEN UA (POCT) 0.2 E.U./dL Normal E.U./dL [facility] CNPN on 03-05-2022 CNPN Normal [facility] Vital Signs Date Time Vital Sign Value Performing Clinician Facilit y 02-23-2023 Body temperature 98.29 [degF] [facility] 14:00 Work Phone: 02-23-2023 Diastolic blood 82 mm[Hg] [facility] 14: pressure Work Phone: 02-23-2023 Heart rate 84 /min Zahra Jackson RN [facility] 14:00 Work Phone: 02-23-2023 Respiratory rate 20 /min [facility] 14:000 Work Phone: 02-23-2023 SaO2% (BldA) [Mass 96 % Zahra Jackson RN [facility] 14: fraction] Work Phone: 02-23-2023 Systolic blood 138 mm[Hg] Zahra Jackson RN [facility] 14:040 pressure Work Phone: 02-18-2023 Diastolic blood 72 mm[Hg] Panfilo Oreilly MD [facility] 11: pressure Work Phone: 02-18-2023 Heart rate 99 /min Panfilo Oreilly MD [facility] 11: Work Phone: 02-18-2023 Respiratory rate 18 /min Panfilo Oreilly MD [facility] 11: Work Phone: 02-18-2023 SaO2% (BldA) [Mass 91 % Panfilo Oreilly MD [facility] 11: fraction] Work Phone: 02-18-2023 Systolic blood 128 mm[Hg] Panfilo Oreilly MD [facility] 11: pressure Work Phone: 12-30-2022 SaO2% (BldA) [Mass 93 % PANFILO OREILLY Nm solo [facility] 13:37-0500 fraction] [facility] Comment on above: Order Comment: Specimen Type : ARTERIAL BLOOD SPECIMENOrdering Facility: [facility] Address: [address] [place] [address] Performed By: #### ALLBG ### #[facility] [id number] [place] [address] [facility] 12-27-2022 07:00-0500 SaO2% (BldA) [Mass 97 % PANFILO VU [facility] fraction] [facility] Comment on above: Order Comment: Specimen Type : ARTERIAL BLOOD SPECIMENOrdering Facility: [facility] Address: [address] [place] [address] Performed By: #### ALLBG ### #[facility] [id number] [place] [address] [facility] 12-25-2022 13:42-0500 SaO2% (BldA) [Mass 97 % CHRISTOPHER B HORACE [facility] fraction] [facility] Comment on above: Order Comment: Specimen Type : ARTERIAL BLOOD SPECIMENOrdering Facility: [facility] Address: [address] [place] [address] Performed By: #### ALLBG ### #[facility] [id number] [place] [address] [facility] 12-25-2022 10:54-0500 SaO2% (BldA) [Mass 99 % CHRISTOPHER B LEONLEY [facility] fraction] [facility] Center Comment on above: Order Comment: Specimen Type : ARTERIAL BLOOD SPECIMENOrdering Facility: [facility] Address: [address] [place] [address] Performed By: #### ALLBG ### #[facility] [id number] [place] [address] [facility] 12-25-2022 08:26-0500 SaO2% (BldA) [Mass 96 % CHRISTOPHER B HORACE [facility] fraction] Medical Center Comment on above: Order Comment: Specimen Type : ARTERIAL BLOOD SPECIMENOrdering Facility: [facility] Address: [address] [place] [address] Performed By: #### ALLBG ### #[facility]CLIA [id number] [place] [address] [facility] 10-18-2022 Body temperature 96.8 [degF] Panfiol Oreilly MD [facility] 10:[address]50 Work Phone: 10-18-2022 Body weight 178.9 kg Panfilo Oreilly MD [facility] 10:410500 Work Phone: 10-18-2022 Diastolic blood 70 mm[Hg] Panfilo Oreilly MD [facility] 10:41050 pressure Work Phone: 10-18-2022 Heart rate 100 /min Panfilo Oreilly MD [facility] 10:410500 Work Phone: 10-18-2022 Respiratory rate 20 /min Panfilo Oreilly MD [facility] 10:410500 Work Phone: 10-18-2022 SaO2% (BldA) [Mass 97 % Panfilo Oreilly MD [facility] 10:410500 fraction] Work Phone: 10-18-2022 Systolic blood 124 mm[Hg] Panfilo Oreilly MD [facility] 10:410500 pressure Work Phone: 07-23-2022 Body height 166.4 cm Berenice Bauman MD [facility] 10: Work Phone: 07-23-2022 Body temperature 98.2 [degF] Berenice Bauman MD [facility] 10: Work Phone: 07-23-2022 Body weight 176.45 kg Berenice Bauman MD [facility] 10: Work Phone: 07-23-2022 Diastolic blood 71 mm[Hg] Berenice Bauman MD [facility] 10: pressure Work Phone: 07-23-2022 Heart rate 103 /min Berenice Bauman MD [facility] 10: Work Phone: 07-23-2022 SaO2% (BldA) [Mass 92 % Berenice Bauman MD [facility] 10:040 fraction] Work Phone: 07-23-2022 Systolic blood 136 mm[Hg] Berenice Bauman MD [facility] 10: pressure Work Phone: 03-19-2022 Body weight 168.65 kg Hallie Martinez HAT AND CAP [employer]WER.NIKIA [facility] 10: Work Phone: 03-19-2022 Diastolic blood 82 mm[Hg] Hallie Carmonalogericka HAT AND CAP SEWERMUMTAZ [facility] 10: pressure Work Phone: 03-19-2022 Heart rate 83 /min Hallie Podlogar HAT AND CAP SEWER.MORTGAGE PROFESSIONAL [facility] 10: Work Phone: 03-19-2022 Respiratory rate 20 /min Hallie Podlogar H[employer] AND CAP SE[employer]ER.MORTGAGE PROFESSIONAL [facility] 10: Work Phone: 03-19-2022 SaO2% (BldA) [Mass 97 % Hallie Podlogar HAT AND CAP SEWER.CN P [facility] 10: fraction] Work Phone: 03-19-2022 Systolic blood 140 mm[Hg] Hallie Podlogar HAT AND CAP SE[employer]ER.MORTGAGE PROFESSIONAL [facility] 10: pressure Work Phone: Encounters Encounter Date Encounter Type Care Provider Facility Start: 02-26-2023 Home visit Karyn Vernon [facility] linic Home Care End: 02-26-2023 Work Phone: Comment on above: EFFICIENCY MANAGER CARE COORDINATION Start: 02-25-2023 Home visit Karyn Vernon [facility] linic Home Care End: 02-25-2023 Work Phone: Comment on above: EFFICIENCY MANAGER CARE COORDINATION Start: 02-24-2023 Telephone encounter Panfilo Guzman [facility] Work Phone: [place] Comment on above: Patient Update Start: 02-23-2023 Home visit Zahra Jackson RN [facility] rebecca Home Care End: 02-23-2023 Work Phone: Comment on above: SN SOC Start: 02-21-2023 [facility] Work [facility] Start: 02-21-2023 Telephone encounter Panfilo Oreilly MD [facility] Work Phone: [place] Comment on above: Fax last Office Vist Notes Transition Of Care (TCM Phar [place]-Hospital discharge 02/20/23) Transition Of Care (TCM Init ial [facility] Discharge 02/20/23/) Start: 02-20-2023 Telephone encounter [facility] Comment on above: Home Care (MD to follow) Start: 02-19-2023 Telephone encounter Panfilo Oreilly MD [facility] Work Phone: [place] Comment on above: Results Start: 02-19-2023 Evaluation and PANFILO OREILLY Facility :[facility] End: 02-20-2023 management of inpatient Start: 02-18-2023 ambulatory PANFILO OREILLY Facility :[place] End: 02-19-2023 [facility] Start: 02-18-2023 Patient encounter Panfilo Oreilly MD [facility] [place] End: 02-19-2023 procedure Work Phone: Comment on above: Abscess of groin, left (Prim shaina Dx); Non-healing open wound of le ft groin, initial encounter; Necrotizing soft tissue infe ction; Cellulitis of skin; Type 2 diabetes mellitus wit h diabetic polyneuropathy, with long-term current use of insulin (HCC) Start: 02-04-2023 Telephone encounter Panfilo Oreilly MD [facility] Work Phone: [place] Comment on above: [facility] PT Order Request Start: 02-03-2023 Refill Panfilo Oreilly MD [facility] [place] Work Phone: Comment on above: Refill Request Start: 01-30-2023 Telephone encounter Panfilo Oreilly MD [facility] Work Phone: [place] Comment on above: Appointment Start: 01-28-2023 [facility] Start: 01-28-2023 Follow-up encounter Raquel Payne RN Ambul atory Care Management Comment on above: Transition Of Care (TCM foll ow up/) Start: 01-21-2023 Telephone encounter Panfilo Oreilly MD [facility] Work Phone: [place] Comment on above: [facility] Start: 01-20-2023 Telephone encounter Brandi Fernando MD [facility] Work Phone: [facility] SURGERY DEPARTMENT Comment on above: Refill Request Start: 01-17-2023 Patient Outreach Brissa Kilpatrick [facility] Pharm acy Work Phone: Comment on above: Transition Of Care (TCM Phar juan-Hospital discharge 01/16/23) Start: 01-15-2023 Telephone encounter Panfilo Oreilly MD [facility] Work Phone: [place] Comment on above: Patient Update Start: 01-14-2023 ambulatory Mimi Crowley RN [facility] Start: 01-14-2023 Follow-up encounter Mimi Crowley RN Ambulat ory Care Management Comment on above: Transition Of Care (TCM foll ow-up readmitted to hospital) Start: 01-14-2023 Telephone encounter Panfilo Oreilly MD [facility] Work Phone: [place] Comment on above: Appointment Start: 01-13-2023 Evaluation and HUBERT LEBLANC Facility:[facility] End: 01-16-2023 management of inpatient Start: 01-13-2023 ambulatory PANFILO OREILLY Facility :[facility] End: 01-13-2023 Start: 01-12-2023 Emergency department PANFILO OREILLY [facility] ility:[facility] End: 01-13-2023 patient visit Start: 01-06-2023 Orders Only Panfilo Arizmendi MD [facility] ER ADULT Work Phone: Comment on above: Necrotizing soft tissue infe ction Medication Request Patient Update Start: 01-03-2023 Refill Panfilo Oreilly MD [facility] Work Phone: Comment on above: Refill Request Start: 01-02-2023 Patient Outreach Brissa Kilpatrick [facility] Pharm [facility] Work Phone: Comment on above: Transition Of Care (TCM Phar juan-Hospital discharge 01/01/23) Transition Of Care (TCM init ial outreach-dc'd from [facility] 01/01/23) Missed Appointment (Pharmacy visit reschedule) Start: 12-31-2022 Refill Panfilo Oreilly MD [facility] [place] Work Phone: Comment on above: Refill Request Start: 12-27-2022 Refill Anabella Gaines H[employer] AND CAP SEWER.MORTGAGE PROFESSIONAL [facility] [place] Work Phone: Comment on above: Refill Request Start: 12-26-2022 Telephone encounter Panfilo Oreilly MD [facility] Work Phone: [place] Comment on above: Patient Update Start: 12-25-2022 ambulatory [place] H[employer] AND CAP SEWER.MORTGAGE PROFESSIONAL Critical [facility] are Work Phone: Start: 12-25-2022 Evaluation and PANFILO OREILLY Facility :[place] End: 01-01-2023 management of General inpatient Start: 12-24-2022 Telephone encounter Panfilo Oreilly MD [facility] Work Phone: [place] Comment on above: Patient Update Start: 12-12-2022 Refill Panfilo Oreilly MD [facility] [place] Work Phone: Comment on above: Refill Request Medication Problem Start: 12-11-2022 ambulatory PANFILO OREILLY Facility :[facility] End: 12-11-2022 Start: 12-05-2022 Telephone encounter Robertlara Frostgo [facility] Pharm Med Clinic Work Phone: Comment on above: Missed Appointment Start: 11-27-2022 Refill Panfilo Oreilly MD [facility] [place] Work Phone: Comment on above: Refill Request Start: 11-11-2022 ambulatory PANFILO Saul Facility:[facility] End: 11-11-2022 [facility] Start: 11-11-2022 Telephone encounter Panfilo Oreilly MD [facility] [place] Work Phone: Comment on above: Results Start: 11-08-2022 ambulatory PANFILO Saul Facility:[facility] End: 11-09-2022 [facility] Start: 11-08-2022 ambulatory AURELIANO Dorys Facility:[facility] End: 11-08-2022 [facility] Start: 11-08-2022 Patient encounter Panfilo Arciniega [facility] [place] End: 11-08-2022 procedure Work Phone: Comment on above: Strep pharyngitis (Primary D x); Reactive airway disease with acute exacerbation, unspecified asthma severity, unspecified whether persistent; Tremor; LOGAN treated with BiPAP; Morbid obesity (HCC); Type 2 diabetes mellitus wit h diabetic polyneuropathy, with long-term current use of insulin (HCC); Episodic lightheadedness; Dehydration Start: 11-06-2022 ambulatory PANFILO Saul Facility:[facility] End: 11-06-2022 [facility] Start: 11-06-2022 Patient encounter Anita Mosley [facility]iat[facility] End: 11-06-2022 procedure Work Phone: Comment on above: Onychomycosis (Primary Dx); Pain in toe of left foot; Pain in toe of right foot; Other diabetic neurological complication associated with type 2 diabetes mellitus (HCC); Hyperkeratosis; Chronic venous insufficiency ; Diminished pulses in lower e xtremity Start: 11-05-2022 Telephone encounter Panfilo Oreilly MD [facility] Work Phone: [place] Comment on above: Orders Start: 10-30-2022 ambulatory [facility] End: 10-30-2022 Work Phone: Comment on above: Type 2 diabetes mellitus wit h diabetic polyneuropathy, with long-term current use of insulin (HCC) (Primary Dx); History of tobacco use Start: 10-30-2022 Telemedicine [facility] End: 10-30-2022 consultation with Work Phone: patient Start: 10-22-2022 Telephone encounter Panfilo Oreilly MD [facility] Work Phone: [place] Comment on above: Patient Update Start: 10-21-2022 Telephone encounter Panfilo Oreilly MD [facility] Work Phone: [place] Comment on above: Results (No answer and VM no t set up. [employer] message sent to request patient call in for results on Lab and xray.) Start: 10-18-2022 ambulatory HODANASAD Dorys Facility:[facility] End: 10-18-2022 [facility] Start: 10-18-2022 ambulatory [facility] Facility:[facility] End: 10-18-2022 [facility] Start: 10-18-2022 Telephone encounter Panfilo Oreilly MD [facility] [place] Work Phone: Comment on above: Prescription Clarification Start: 10-18-2022 [facility] End: 10-18-2022 [facility] Start: 10-18-2022 Patient encounter Panfilo Oreilly MD [facility] End: 10-18-2022 procedure Work Phone: Comment on above: Acute diastolic CHF (congest sudarshan heart failure) (HCC) (Primary Dx); COPD with exacerbation (HCC) ; Bacterial pneumonia; Hypoxia; LOGAN treated with BiPAP; Bilateral lower extremity ed tsering; Type 2 diabetes mellitus wit h diabetic polyneuropathy, with long-term current use of insulin (HCC); Other chest pain; Tremor; Tobacco use Start: 10-04-2022 Refill Panfilo Oreilly MD [facility] [place] Work Phone: Comment on above: Refill Request Start: 09-09-2022 Telephone encounter Panfilo Oreilly MD [facility] Work Phone: [place] Comment on above: Medication Problem Start: 09-05-2022 ambulatory PANFILO OREILLY Facility :[facility] End: 09-06-2022 Hospital Start: 08-27-2022 Refill Panfilo Oreilly MD [facility] [place] Work Phone: Comment on above: Refill Request Start: 08-01-2022 ambulatory [facility] End: 08-02-2022 Work Phone: Comment on above: Diabetes resources Type 2 diabetes mellitus wit h diabetic polyneuropathy, with long-term current use of ins ulin (HCC) (Primary Dx) Start: 08-01-2022 E-mail encounter from [facility] caregiver Work Phone: Start: 08-01-2022 Telemedicine [facility] End: 08-01-2022 consultation with Work Phone: patient Start: 07-24-2022 Refill Panfilo Oreilly MD [facility] Work Phone: [place] Comment on above: Refill Request Start: 07-23-2022 ambulatory [facility] Facility:[facility] End: 07-23-2022 [facility] Start: 07-23-2022 Patient encounter Berenice Bauman MD General Surgery End: 07-23-2022 procedure Work Phone: Comment on above: Screening for colon cancer ( Primary Dx); Chest pain, unspecified type ; Morbid obesity (HCC) Start: 07-15-2022 [facility] Facility:[facility] End: 07-15-2022 [facility] Start: 07-11-2022 Telephone encounter [facility] Work Phone: Comment on above: Appointment Start: 07-09-2022 Telephone encounter Panfilo Oreilly MD [facility] Work Phone: [place] Comment on above: Medication Problem (Patient requesting all RX's for medications and diabetic supplies be sent to [facility] in [place].) Start: 07-09-2022 [facility] Facility :[facility] End: 07-09-2022 Hospital Start: 07-05-2022 Refill Hallie Martinez APRN.CNP [facility] [place] Work Phone: Comment on above: Refill Request; Refill Reque st Start: 07-03-2022 Telephone encounter Panfilo Oreilly MD [facility] Work Phone: [place] Comment on above: Forms (DM Supplies ) Start: 06-28-2022 Telephone encounter Panfilo Oreilly MD [facility] Work Phone: [place] Comment on above: Appointment (patient past patrice mei for follow up- no show on 06/18/22) Start: 2022 Telephone encounter Robert Sanchez [facility] Work Phone: Comment on above: Missed Appointment Refill Request Start: 06-13-2022 Telephone encounter Robert Sanchez [facility] Work Phone: Comment on above: Missed Appointment Erroneous encounter-disregar d Start: 06-05-2022 Refill Panfilo Oreilly MD [facility] [place] Work Phone: Comment on above: Refill Request Start: 05-29-2022 ambulatory Panfilo Oreilly MD [facility] Medicine Main Work Phone: [place] Start: 05-02-2022 ambulatory Robert Sanchez [facility] End: 05-03-2022 Work Phone: Comment on above: Type 2 diabetes mellitus wit h diabetic polyneuropathy, with long-term current use of ins ulin (HCC) (Primary Dx) Start: 05-02-2022 Telemedicine Robert Sanchez [facility] End: 05-02-2022 consultation with Work Phone: patient Start: 05-01-2022 Refill Panfilo Oreilly MD [facility] Medicine Work Phone: [place] Comment on above: Refill Request Start: 04-09-2022 Telephone encounter Panfilo Oreilly MD [facility] Medicine Work Phone: [place] griffin Comment on above: Patient Update Start: 04-03-2022 Telephone encounter Robert Sanchez [facility] Work Phone: Comment on above: Diabetes Start: 03-29-2022 Telephone encounter Robert Sanchez [facility] Work Phone: Comment on above: Medication Problem Start: 03-28-2022 Telephone encounter Panfilo Oreilly MD [facility] Work Phone: [place] Comment on above: Patient Update; Medication R equest Start: 03-28-2022 ambulatory PANFILO OREILLY Facility :[facility] End: 03-29-2022 Hospital Start: 03-28-2022 ambulatory [facility] End: 03-28-2022 Work Phone: Comment on above: Type 2 diabetes mellitus wit h diabetic polyneuropathy, with long-term current use of ins ulin (HCC) (Primary Dx) Start: 03-28-2022 Telemedicine [facility] End: 03-28-2022 consultation with Work Phone: patient Start: 03-20-2022 Telephone encounter Hallie Martinez H[employer]NIKIA [facility] Work Phone: [place] Comment on above: Results Start: 03-19-2022 ambulatory HALLIE PODLOGAR Facility:[facility] End: 03-19-2022 Hospital Start: 03-19-2022 ambulatory HALLIE PODLOGAR Facility:[facility] End: 03-20-2022 Hospital Start: 03-19-2022 Patient encounter Hallie Carmonalogericka HAT AND CAP SEWER.NIKIA [facility] [place] End: 03-19-2022 procedure Work Phone: Comment on above: Type 2 diabetes mellitus wit h diabetic polyneuropathy, with long-term current use of insulin (HCC) (Primary Dx); Dysuria; LOGAN (obstructive sleep apnea ); Essential hypertension; Chronic respiratory failure with hypoxia (HCC); Hyperlipidemia, unspecified hyperlipidemia type Start: 03-05-2022 Telephone encounter Panfilo Guzman [facility] Work Phone: [place] Comment on above: insurance requests change in sulin Start: 01-29-2022 Telephone encounter Panfilo Guzman [facility] Work Phone: [place] Comment on above: Patient Request Start: 01-25-2022 Telephone encounter Hallie Martinez H[employer].NIKIA [facility] Work Phone: [place] Comment on above: medication instructions Patient Request Medication Question Start: 01-23-2022 Telephone encounter Hallie Martinez H[employer] AND CAP SEWER.NIKIA [facility] Work Phone: [place] Comment on above: Orders Start: 01-14-2022 Refill Panfilo Oreilly MD [facility] [place] Work Phone: Comment on above: Refill Request (SEE RX NOTES ) Start: 06-19-2021 Telephone encounter [facility] Work Phone: [place] Comment on above: Insurance Authorization (Neno Gore) Procedures Date Procedure Procedure Detail Performing Clin ician Start: 02-18-2023 Cul bact xcpt urine Tino Oreilly MD blood/stool aerobic isol Work Ph one: Start: 12-25-2022 Antibody screen PANFILO BARRAZA Comment on above: Order Comment: Specimen Type : BLOOD SPECIMENOrdering Facility: [facility] Address: [address] [place] [id number] Performed By: #### TSCR #### [facility] BLOOD BANKCLIA [id number] [place] [address] [place] [facility] Start: 07-15-2022 Echocardiography PANFILO VU Start: 03-19-2022 Urnls dip stick/tablet rgnt auto w/o Hallie Podlogar [employer] SE[employer]ER.[employer] PROFESSIONAL microscopy Work Phone: Start: 02-14-2021 Adult depression screening assessment Panfilo Oreilly MD Work Phone: Start: 10-09-2017 Mammography Panfilo barraza MD Work Phone: Plan of Treatment Date Care Activity Detail Author Start: PNEUMOCOCCAL (3 - PPSV23 PNEUMOCOCCAL (3 - [facility] 2042 if available, else PCV20) PPSV23 if available, else PCV20) Start: PNEUMOCOCCAL (3 - PPSV23 PNEUMOCOCCAL (3 - [facility] 2042 or PCV20) PPSV23 or PCV20) Start: Urine microalbumin DTAP,TDAP,TD (2 - Td or [facility] 07-01-2027 profile Tdap) Start: ANNUAL PCP TEAM CHRONIC ANNUAL PCP TEAM CHRONIC [facility] 02-19-2024 DISEASE VISIT DISEASE VISIT Start: BP CONTROLLED (<130/80) BP CONTROLLED (<130/80) [facility] 02-19-2024 Start: Hepatitis B surface LDL CHOLESTEROL [facility] 02-19-2024 antibody level Start: BP CONTROLLED (<130/80) BP CONTROLLED (<130/80) [facility] 01-13-2024 Start: 3 comp foot exam DIABETIC FOOT EXAM [facility] 12-25-2023 completed Start: ANNUAL PCP TEAM CHRONIC ANNUAL PCP TEAM CHRONIC [facility] 11-08-2023 DISEASE VISIT DISEASE VISIT Start: BP CONTROLLED (<130/80) BP CONTROLLED (<130/80) [facility] 11-08-2023 Start: ANNUAL PCP TEAM CHRONIC ANNUAL PCP TEAM CHRONIC [facility] 10-18-2023 DISEASE VISIT DISEASE VISIT Start: BP CONTROLLED (<130/80) BP CONTROLLED (<130/80) [facility] 10-18-2023 Start: 3 comp foot exam DIABETIC FOOT EXAM [facility] 07-09-2023 completed Start: ANNUAL PCP TEAM CHRONIC ANNUAL PCP TEAM CHRONIC [facility] 07-09-2023 DISEASE VISIT DISEASE VISIT Start: Hepatitis B screening URINE [facility] 07-09-2023 ALBUMIN:CREATININE RATIO Start: Hemoglobin HBA1C [facility] 05-21-2023 A1c/Hemoglobin.total in Blood Start: HPV TESTING HPV TESTING [facility] 04-30-2023 Start: PAP TESTING PAP TESTING [facility] 04-30-2023 Start: ANNUAL PCP TEAM CHRONIC ANNUAL PCP TEAM [facility] 03-19-2023 DISEASE VISIT DISEASE VISIT Start: Hemoglobin HBA1C [facility] 02-09-2023 A1c/Hemoglobin.total in Blood Start: Hemoglobin HBA1C [facility] 02-06-2023 A1c/Hemoglobin.total in Blood Start: 3 comp foot exam DIABETIC FOOT EXAM [facility] 01-23-2023 completed Start: ANNUAL PCP TEAM CHRONIC ANNUAL PCP TEAM CHRONIC [facility] 01-23-2023 DISEASE VISIT DISEASE VISIT Start: BP CONTROLLED (<130/80) BP CONTROLLED (<130/80) [facility] 01-23-2023 Start: BP CONTROLLED (<130/80) BP CONTROLLED (<130/80) [facility] 12-12-2022 Start: Hepatitis B surface LDL CHOLESTEROL [facility] 12-12-2022 antibody level Start: DEPRESSION ASSESSMENT DEPRESSION ASSESSMENT [facility] 12-01-2022 Start: 11-18-2022 Comprehensive metabolic COMP METABOLIC PANEL C [facility] End: 01-18-20231999 panel - Serum or Lab Routine KERRY (acute Wor k Phone: Plasma kidney injury) (HCC) Expected: 11/18/2022, Expires: 01/18/2023 Comment on above: Expected: 11/18/2022, s: 01/18/2023 Start: 10-31-2022 Basic metabolic BASIC METABOLIC PNL Lab [facility] End: 12-31-20221999 panel - Serum Routine Type 2 diabetes Work Phone: or Plasma mellitus with diabetic polyneuropathy, with long-term current use of insulin (HCC) Expected: 10/31/2022, Expires: 12/31/2022 Comment on above: Expected: 10/31/2022, s: 12/31/2022 Start: 10-09-2022 Hemoglobin HBA1C [facility] A1c/Hemoglobin.total in Blood Start: 08-01-2022 Hepatitis B screening URINE [facility] ALBUMIN:CREATININE RATIO Start: 08-01-2022 Influenza vaccination INFLUENZA (#1) [facility] Start: 2022 COLOGUARD (FIT-DNA) COLOGUARD (FIT-DNA) [facility] Start: 2022 Colonoscopy COLONOSCOPY [facility] Start: 2022 COLORECTAL CANCER SCREENING COLORECTAL CANCER [facility] SCREENING Start: [address] COLONOGRAPHY [facility] Start: 2022 FECAL OCCULT BLOOD FECAL OCCULT BLOOD [facility] Start: 2022 SIGMOIDOSCOPY SIGMOIDOSCOPY [facility] Start: 06-18-2022 Hemoglobin [facility] End: 08-18-2022 A1c/Hemoglobin.total in Blood Comment on above: Expected: 06/18/2022, s: 08/18/2022 Start: 03-19-2022 Comprehensive metabolic 2000 panel [facility] End: 05-19-2022 - Serum or Plasma Work Phone: 1( [phone] Comment on above: Expected: 03/19/2022, s: 05/19/2022 Start: 03-19-2022 Hemoglobin A1c/Hemoglobin.total in [facility] End: 05-19-2022 Blood Work Phone: Comment on above: Expected: 03/19/2022, s: 05/19/2022 Start: 03-15-2022 COVID-19 VACCINE (3 - COVID-19 VACCINE (3 - [facility] Booster for Damir Booster for Damir series) series) Start: 03-12-2022 Hemoglobin HBA1C [facility] A1c/Hemoglobin.total in Blood Start: 02-14-2022 Adult depression DEPRESSION SCREENING [facility] screening assessment Start: 12-01-2021 DEPRESSION ASSESSMENT DEPRESSION ASSESSMENT [facility] Start: 10-09-2018 Mammography MAMMOGRAM [facility] Start: 08-31-2016 TWO PNEUMOVAX 5 YEARS TWO PNEUMOVAX 5 YEARS [facility] APART PRIOR TO AGE 65 APART PRIOR TO AGE 65 (#2) (#2) Start: 1996 HEPATITIS B (1 of 3 - HEPATITIS B (1 of 3 - [facility] Risk 3-dose series) Risk 3-dose series) Start: 1987 Hepatitis C antibody, DILATED RETINAL EXAM [facility] confirmatory test Start: 1977 HEPATITIS B (1 of 3 - HEPATITIS B (1 of 3 - [facility] 3-dose series) 3-dose series) Bacteria identified in ABSCESS AND WOUND [facility] Wound by Culture CULTURE WITH GRAM STAIN Work Ph one: Microbiology Routine Abscess of groin, left Non-healing open wound of left groin, initial encounter 02/18/2023 12:05 PM EDT ECG COMPLETE ECG COMPLETE ECG [facility] End: 10-18-2023 Routine Acute diastolic Work Rupali ne: CHF (congestive heart failure) (HCC) Other chest pain 1 Occurrences starting 10/18/2022 until 10/18/2023 Comment on above: 1 Occurrences starting 10/18 until 10/18/2023 EPIL EEG ROUTINE EPIL EEG ROUTINE [facility] End: 11-08-2023 NEUROLOGY TACO Tremor 1 Work Rupali ne: Occurrences starting 11/08/2022 until 11/08/2023 Comment on above: 1 Occurrences starting 11/08 until 11/08/2023 NM CARDIAC PERF NM CARDIAC PERF [facility] End: 11-17-2023 STRESS/PHARM STRESS/PHARM Radiology Work Phon e: TACO Acute diastolic CHF (congestive heart failure) (HCC) 1 Occurrences starting 10/18/2022 until 11/17/2023 Comment on above: 1 Occurrences starting 10/18 until 11/17/2023 OCCULT BLD EXAM-DIAG OCCULT BLD EXAM-DIAG Microb iology [facility] Routine Screening for colon Work Phone: cancer Ordered: 07/23/2022 Comment on above: Ordered: 07/23/2022 PVR ANK PRESS TAY PVR ANK PRESS TAY [facility] End: 11-06-2023 VAS LAB Vascular Lab Routine Work Phone: Onychomycosis Other diabetic neurological complication associated with type 2 diabetes mellitus (HCC) Diminished pulses in lower extremity 1 Occurrences starting 11/06/2022 until 11/06/2023 Comment on above: 1 Occurrences starting 11/06 until 11/06/2023 Screening mammography SHERYL SCREENING [facility] End: 06-28-2023 bi 2-view breast inc Radiology Routine Work Phon e: cad Encounter for screening mammogram for breast cancer 1 Occurrences starting 05/29/2022 until 06/28/2023 Comment on above: 1 Occurrences starting 05/29 until 06/28/2023 UA DIP, URINE (POC) UA DIP, URINE (POC) Lab Rout robbie [facility] Dysuria Ordered: 03/19/2022 Work Phone: Comment on above: Ordered: 03/19/2022 [facility] [place] [facility] Immunizations Immunization Date Immunization Notes Care Provider Facility 12-12-2021 influenza, injectable, Panfilo nuñez MD [facility] quadrivalent, contains Work Phone: preservative 08-31-2020 influenza, injectable, Panfilo nuñez MD [facility] quadrivalent, contains Work Phone: preservative 08-31-2020 pneumococcal conjugate Panfilo nuñez MD [facility] vaccine, 13 valent Work Phone: 11-12-2019 influenza, injectable, Panfilo nuñez MD [facility] quadrivalent, contains Work Phone: preservative 12-16-2018 influenza, seasonal, Panfilo Oreilly MD [facility] injectable, preservative Work Phone: free 09-11-2017 influenza, seasonal, Panfilo Oreilly MD [facility] injectable Work Phone: 09-11-2017 influenza, seasonal, Panfilo Oreilly MD [facility] injectable, preservative Work Phone: free 07-01-2017 tetanus toxoid, reduced Panfilo chadwick MD [facility] diphtheria toxoid, and Work Phone: acellular pertussis vaccine, adsorbed 12-20-2013 influenza, seasonal, Panfilo Oreilly MD [facility] injectable Work Phone: 12-20-2013 influenza, seasonal, Panfilo Oreilly MD [facility] injectable, preservative Work Phone: free 08-31-2011 pneumococcal Panfilo Oreilly MD [facility] polysaccharide vaccine, Work Phone: 23 valent Payers Date Payer Category Payer Medicaid [employer] [id number] [facility] MEDICAID [id number] 2022-Present [phone] [address] [place] [address] Medicaid 2022 Medicaid [employer] [id number] [employer] [id number] 2022-2022 [id number] [phone] [address] [place] [address] Medicaid 2022 Medicare [id number] 2022 Medicare [id number] 2022 Medicare [id number] 2022 Medicaid MEDICAID [facility] MEDICAID [id number] 2022-2022 [id number] [address] [place] [address] Medicaid 2021 Medicare MEDICARE MEDICARE A AND B [id number] 2021-2021 [id number] [address] [address] [place] [address] Medicare Social History Date Type Detail Facility Start: 08-25-2019 Tobacco smoking status Smokes [facility] End: 11-06-2022 [facility] History of tobacco use Cigarette Smoker [facility] End: 09-08-2017 Start: 08-25-2019 Cigarettes smoked current 1 [facility] End: 01-13-2023 (pack per day) - Reported Start: 08-25-2019 Tobacco use and exposure Smokeless tobacco Aris reeder [facility] End: 01-13-2023 non-user Start: 12-12-2021 Alcohol intake Current drinker of [place] Juan José nesbitt End: 11-06-2022 alcohol (finding) Start: 04-03-2017 History SDOH Alcohol rarely [facility] Comment Start: 1975 Sex Assigned At Not on file [facility] Start: 01-06-2022 Exposure to SARS-CoV-2 Not sure [facility] End: 10-18-2022 (event) Start: 01-23-2022 Tobacco smoking status Ex-smoker [facility] End: 01-13-2023 [facility] Start: 01-23-2022 Tobacco Comment d/c x2 wks [facility] ic End: 07-09-2022 Start: 04-03-2017 Tobacco Comment failed patches in the [facility] past History of tobacco use Current smoker [facility] Start: 07-22-2022 Exposure to SARS-CoV-2 Yes [facility] End: 08-01-2022 (event) Start: 08-23-2022 Exposure to SARS-CoV-2 Unable to assess [facility] End: 09-02-2022 (event) Start: 10-17-2022 History SDOH Alcohol 1 [facility] End: 01-15-2023 Frequency Start: 10-17-2022 History SDOH Alcohol Std 0 [facility] End: 11-02-2022 Drinks Start: 10-17-2022 History SDOH Social 5 [facility] End: 01-15-2023 Connections Phone Start: 10-17-2022 History SDOH Social 2 [facility] End: 01-15-2023 Connections Get Together Start: 10-17-2022 History SDOH Social 7 [facility] End: 11-02-2022 [facility] Start: 10-17-2022 History SDOH Physical 3 [facility] End: 11-02-2022 Activity DPW Start: 10-17-2022 History SDOH Financial 4 [facility] Start: 01-14-2023 Alcohol intake Ex-drinker (finding) [facility] End: 02-18-2023 Medical Equipment Procedure Code Equipment Code Equipment Original Equipment Identifi er Dates Text Start: 04-07-20 End: 01-02-2023 Comment on above: Test blood sugar four times daily diagnosis e11.42 insulin: yes To use 4 times daily to henny tor glucose. Dx: uncontrolled type II DM, on insulin use with insulin Use to check blood sugars fo ur times daily as instructed use one as directed Test blood sugar three times daily diagnosis e11.42 insulin: yes Inject 1 Each subcutaneously four times daily. use with insulin Goals Date Patient Goal Desired Activity/Sta te Comment on above: Formatting of this note migh t be different from the original. 04/23/18 Comment on above: Formatting of this note migh t be different from the original. 111 on 03/18 Comment on above: Formatting of this note migh t be different from the original. Reviewed with PharmD on 07/16 Comment on above: Formatting of this note migh t be different from the original. 04/23/18 Comment on above: Formatting of this note migh t be different from the original. Quit 2017 Clinical Notes 11-06-2007 to 02-26-2023 HH CARE COORDINATION - PER Boone - 02/26/2023 2:30 PM EDTHH CARE COORDINATION - PER Boone - 02/25/2023 2:45 PM EDTHH SN SOC - Zahra Jackson RN - 02/23/2023 12:52 PM EDT Note Date & Type Note Facility 02-26-2023 Miscellaneous Formatting of this note migh t be different from the original. [facility] Notes 02/26/23 2;44 PM - 2:47 PM LS W called the pt. regarding the continuity manager requested orders for her to get a SALESPERSON HEARING AIDS to assist with bathing. The pt. stated she did not want a SALESPERSON HEARING AIDS once a week and wants her A olena hours under Waiver. WEIGHTS AND MEASURES INSPECTOR discussed that Brandy Ross [facility] Diamond Cleaner with Direction [facility] on [facility] discussed her getting the SALESPERSON HEARING AIDS until they find an Aide under Waiver. The pt. state d her daughter can assist her with bathing. The pt. stated that she received a phone call from [facility] regarding they needed the measurement for the lift chair. WEIGHTS AND MEASURES INSPECTOR di scussed that Brandy was senin g the measurements to Elaine and WEIGHTS AND MEASURES INSPECTOR could follow- up. The pt. stated Elaine was waiting on an Email with the measurements. The pt. supportive of that. The pt. to call WEIGHTS AND MEASURES INSPECTOR with any needs. 02/26/23 2:49 PM - 2:51 PM LS W called [facility] Diamond Cleaner with Direction [facility] on [facility] and left her a message that WEIGHTS AND MEASURES INSPECTOR spoke to the pt. and the continuity manager messaged the D r. regarding the pt. getting a SALESPERSON HEARING AIDS for bathing assist. The pt. does not want the SALESPERSON HEARING AIDS and stated her daughter could assist her with bathing. The pt. stated that [facility] called her and needing the measurements for her to get her lift chair. The pt. waiting to get the Aide under Waiver. WEIGHTS AND MEASURES INSPECTOR left her name and phone number. documented in this encounter 02-26-2023 Note [facility] 02-25-2023 Miscellaneous Formatting of this note migh t be different from the original. [facility] Notes 02/25/23 2:49 PM - 2:54 PM JORGE LUIS W received a phone call back from Brandy [facility] Waiver Diamond Cleaner with [employer]irection [facility] on Aging. She stated she is following-up wi th the regarding if ordsigifredo r faxed to a [employer] for the pt. to get a scooter. She stated she saw the pt. yesterday and got the measurements for the pt. to get a lif chair and is working with [facility] for the lift chair. The pt. receives Home Delivered Meals. The pt. to get an ER Medical Alert and Brandy stated they had been trying to reach the pt. and she informed the pt. to answer her phone . Brandy is trying to find an Aide for the pt. She stated she told the pt. to ask about getting a SALESPERSON HEARING AIDS to assist with bathing until she could get an Aide under Waiver. PER informed Brandy that PER will atilio k with the continuity manager r egarding a SALESPERSON HEARING AIDS for the pt. PER will continue to coordinate with Brandy as needed. 02/25/23 3:03 PM PER Emailed Bharat Gardner RN Case Manager - Aung, the pt. Macario Overton is on Waiver and her Waiver Diamond Cleaner asked about the pt. getting a SALESPERSON HEARING AIDS until she would get an Aide under Waiver. They cannot find a n Aide for the pt. yet. Thanks, documented in this encounter 02-25-2023 Miscellaneous Formatting of this note migh t be different from the original. [facility] Notes 02/25/23 10:00 AM - 10:06 AM WEIGHTS AND MEASURES INSPECTOR called [facility] and spoke to Fabienne Stevens regarding who the pt.'s Waiver Diamond Cleaner was and she stated Brandy Ross with [facility]irection [facility] on Aging # [phone]. Fabienne stated she could transfer WEIGHTS AND MEASURES INSPECTOR to Brandy. WEIGHTS AND MEASURES INSPECTOR was transferred and WEIGHTS AND MEASURES INSPECTOR [facility] a message that the pt. was active with [facility] 02/23 for Nursing. WEIGHTS AND MEASURES INSPECTOR stated she was calling to coordinate thw pt.'s care and her services in the home. The pt. asking about an Aide. power wheelchair and lift chair. WEIGHTS AND MEASURES INSPECTOR left her name and phone number for Brandy to call WEIGHTS AND MEASURES INSPECTOR back. 02/25/23 10:06 AM - 10:11 AM WEIGHTS AND MEASURES INSPECTOR called the pt. regarding WEIGHTS AND MEASURES INSPECTOR called her [facility] Waiver Diamond Cleaner Brandy Ross and left her a message. The pt. stated that Brandy came to see her yesterday. S he stated that Brandy is tryi ng to find her an Aide. WEIGHTS AND MEASURES INSPECTOR asked about the power wheelchair and lift chair. The pt. stated Brandy is looking into equipment for her, also. WEIGHTS AND MEASURES INSPECTOR asked the pt. if she received H ome Delivered Meals and she stated that she did. WEIGHTS AND MEASURES INSPECTOR asked the pt. if she had an ER Medical Alert and she stated that Brandy was ordering her one. WEIGHTS AND MEASURES INSPECTOR asked the pt. if she was new on Waiver and she state d she has been on Waiver for a couple of months. WEIGHTS AND MEASURES INSPECTOR asked the pt. if she had needed transportation to medical appointments. She stated if her daughter does not take her she uses transportation under he r [employer]. WEIGHTS AND MEASURES INSPECTOR p rovided the pt. with her name and phone number to call with any needs. WEIGHTS AND MEASURES INSPECTOR will follow-up with her. 02/25/23 WEIGHTS AND MEASURES INSPECTOR [address] Dr. Fela Oreilly - WEIGHTS AND MEASURES INSPECTOR called the pt. regarding WEIGHTS AND MEASURES INSPECTOR called her [facility] Diamond Cleaner Brandy Ross and left her a message. The pt. stated that Brandy came to see her yesterday. She stat ed that Brandy is trying to find her an Aide. WEIGHTS AND MEASURES INSPECTOR asked about the power wheelchair and lift chair. The pt. stated Brandy is looking into equipment for her, also. WEIGHTS AND MEASURES INSPECTOR asked the pt. if she received Home Del ivered Meals and she stated that she did. WEIGHTS AND MEASURES INSPECTOR asked the pt. if she had an ER Medical Alert and she stated that Brandy was ordering her one. WEIGHTS AND MEASURES INSPECTOR asked the pt. if she was new on Waiver and she stated she h as been on Waiver for a couple of months. WEIGHTS AND MEASURES INSPECTOR asked the pt. if she had needed transportation to medical appointments. She stated if her daughter does not take her she uses tr ansportation under her [employer] [facility] [place]. WEIGHTS AND MEASURES INSPECTOR provided the pt. with her name and phone number to call with any needs. WEIGHTS AND MEASURES INSPECTOR will follow-up with her. Brandy Ross [facility] Diamond Clean[facility] [phone]. Thank You, documented in this encounter 02-24-2023 Note [facility] 02-24-2023 Note HNO ID: [id number] [facility] Author: Panfilo Oreilly MD Clevel and Service: ? Author Type: Physician Type: Progress Notes Filed: 02/24/2023 8:05 AM Note Text: Reviewed. Needs to schedule TCM appointm ent still. 02-24-2023 Miscellaneous Formatting of this note migh t be different from the original. [facility] Notes Reviewed. Formatting of this note might be differe nt from the original. FYI: Brandy, Diamond Cleaner [facility] called to let you know pt returned home on 02-20-23 from [facility] and has skilled care thru [facility] for wound care management. Keyonna Gross LPN documented in this encounter 02-23-2023 Miscellaneous Formatting of this note migh t be different from the original. [facility] Notes SITUATION: [facility] SOC visit co mpleted today. Friend and brother also present during today's visit. patient reports the following: Allergies--reviewed Medications--full medication reconciliat ion completed Falls--None DME-Reviewed and added to chart BACKGROUND: Discharged/Referral from acute care hosp ital Pertinent referral informati on or other diagnoses that may affect plan of care: Abscess ASSESSMENT: SN greeted at door by caregiver. Upon en trance patient found in chair Patient appears in no acute distress. Patient lives at home with brother and f chung. Home environment: cluttered and has pets : cat. SOC booklet reviewed & compl eted with patient and consent obtained for Home Care services. Vitals (see flow sheet for details): sta ble SN findings today: Patient i s alert and oriented. VSS lungs are diminished. Harriet has BGT sensor on left arm. States blood sugars have been stable. Changed all wounds as ordered. Patient tolerated wel l. Patient wears oxygen cont inuously. Patient also smokes. Rn instructed patient to turn oxygen off and not to smoke in the home due to fire hazards. Patient states when she smokes she goes out side. Aw are no smoking on the home. Patient verbalized understanding. SW ordered for community resources. Friend changes wounds when no snv. Pt was issued admission booklet. Instructed pt on calling 911 for all emergencies,24 hr call numb er for nursing concers, pt bill of rights and pt responsibilities, consent form, emergency preparedness plan. Medicine reconciliation completed. Pt/caregiver was aware and ag reeable with SN POC, visit set, and refe rral to EFFICIENCY MANAGER, SN. See intervention summary for education d etails and skills performed. Plan of care and visit frequ ency established with patient and plan of care agreed upon. Patient demonstrated a need for further skilled SN services for chronic disease management & education, medication education, wound/skin care and safety. RECOMMENDATION: Visit Frequency: 2w2, 1w7 Need for additional services: Patient ag reeable to EFFICIENCY MANAGER referrals. Additional concerns to be followed up on : NONE Next visit to focus on (be specific): wo udn care, DM, oxygen, edema documented in this encounter 02-21-2023 Note [facility] 02-21-2023 History of Present [facility] illness Narrative TRANSITIONAL CARE MANAGEMENT (TCM) COMMUNITY MONITORING PROGRAM Provider Action/FYI: Navigation Team Please assist with schedulin g TCM Hospital discharge follow up. TCM eligible through 03/06. Thank you [facility]- Friday Wound care: L groin wash wound with soap and water or wound cleanser with every dressing change. Wet to dry dressing with normal saline, gauze and abdominal pad to perineum twice daily. Left lower leg - apply adapt ic, calcium alginate, gauze to open area, and wrap with kerlix daily.- Friend assists with dressing changes, denies increased redness, swelling, pain, drainage, fever, chills. Pt. Reports doing well. Tolerating diet, denies n/v/d. BG in 100's today, utilizes freestyle li inna LOGAN has CPAP, uses it, however reports s ometimes falling asleep without it. Utilizes walker, completes adl's indepen dently Reports she is approved for 28 hours of aide services through waiver program however no hours are provided by aide to to staffing shortage, Jeff GARCÍA working on this. Pt. Denies new or worsening symptoms or concerns since discharge. Pt. Denies questions or concerns in rega rds to discharge instructions. SUMMARY: Pt discharged from [facility] on 01/30 02/20. Admitted for: Cellulitis Contact made with patient: Yes Hi my name is Marixa braun RN and I am calling from the [facility] on behalf of your PCP, Panfilo Oreilly MD I understand you were recently in the hospital so I am calling to check in w ith you to ensure you are fe eling well now that you're home. May I ask you a few questions related to your hospital stay and well-being? Yes Contact with patient post discharge, spo ke to patient. Patient identified by name and . Do you feel your health is B SITA, WORSE, or the SAME since leaving the hospital? Better ACTION TAKEN: Patient indicated symptoms a re better or same, no action required. Continue outreach. MEDICATIONS: Many patients have questions or concerns about their medications once they are home. Do you have any questions about taking your medications or which medication you should be on? No Do you need any medication r efills at this time, including any of the medications you might take only when needed? No ACTION TAKEN: No action required For RNs or Pharmacy completi ng outreach ONLY, was a medication review completed? Yes, Partially reviewed per pts. Preference. SOCIAL: We would like to make sure y ou have what you need so that your basics needs are met - including your personal safety, food, housing and medications. Would you like to speak with a social work team aly burciaga to help give you support for any of th stacy needs? No It can be normal to feel anx ious or down during a time like this. Would you like to talk to a mental health professional about how you have been feeling? No ACTION TAKEN: No action taken DISCHARGE INTRUCTIONS: Your discharge instructions / After Visit Summary (AVS) are important in guiding you through the recovery process. Do you have any questions related to your discharge instructions? No Do you have all the necessary equipment and supplies at home? Yes ACTION TAKEN: No action required I would like to help you juancho edule a hospital follow-up virtual or telephone visit with your PCP. This is a great way for you to connect with your provider to ensure you have safely transitioned home. If you are agreeable, I will s end your request to a maintenance scheduler who will contact and assist you with that appointment. This will give you an opportunity to ask any questions or address any concerns you may have with your PCP. Inform the patient that if t hey have any questions or concerns prior to that appointment, to call their PCP's office right away. ACTION TAKEN: Patient desires an appointme nt - Routed to [facility] [[id number]] for scheduling telehealth visit (telephonic, virtual visit, or Facetime) within 7 days of discharge with PCP mare altman. Indicate hospital follow- up appointment needed within 7 days in Provider/FYI box. End Outreach. Your doctor would like us to remind you of the recommendations regarding the coronavirus (Covid19) outbreak: Avoid public places as much as possible. Avoid close contact (within 6 feet) with others you don t live with, especially if they are sick. Stay home if you are sick. Wash your hands regularly for at least 2 0 seconds with soap and water. Wear a cloth mask in public places to he lp reduce community spread. Do not go to your Doctor s o ffice unless instructed to do so. For any non- emergency symptoms, call your Doctor s office to get instructions on how to manage (we might recommend a telephone or virtual vi sit). For emergency symptoms , proceed to Emergency Department as usual but inform them of cough and fever symptoms TACO if present (or call on the way if possible). ORACIO Education Ordered -: No Formatting of this note is different fro m the original. TCM Home Visit Referral Source of Stratification: [facility] Hospital Admission Status: Discharged Readmission Risk Score: 25 PAMELA Score: 4 Patient meets program referral criteria: No Patient does not qualify for High Risk TCM Home Visit program due to: Discharged home, does not meet program criteria Carlos Cline RN February 21, 2023 9:01 AM TRANSITIONAL CARE MANAGEMENT (TCM) [facility] MONITORING PROGRAM Provider Action/FYI: Outreach attempt #1 Unable to reach patient. Voicemail has not been set up. Unable to leave message. Will try again later Pt has no upcoming future appts SUMMARY: Pt discharged from [facility] on 01/30 02/20. Admitted for: Cellulitis SUMMARY OF WHAT HAPPENED DEREK BUSTAMANTE WAS IN THE HOSPITAL: Ms. Overton presented to an outside facility with purulent drainage from her wound. WBC was 11, and CT showed left upper thigh thickening and ulcerat ion with small amount of res idual subcutaneous gas. She was transferred to [facility] and surgery was consulted. Wound appears to have healed significantly since previously examined by this surgical team and is with granulation tissue. Ms. Overton was started on antibiotics for cellulitis and will continue on Bactrim and should continue a 5 day course at discharge. She was seen by the inpatient wound care te am and given recommendations for continued wet to dry dressing changes twice daily. Ms. Overton is stable for discharge to home with continued home health care for wound care. She should follow up with her PCP for continued wound needs. Contact made with patient: N o - next outreach attempt will be on next day Outreach ended Carlos Cline RN documented in this encounter 02-21-2023 Miscellaneous Formatting of this note migh t be different from the original. [facility] Notes Robert from [facility] called and reports they received the orders and demographic sheet. Faxing over last OV note to fax # [phone]. documented in this encounter 02-21-2023 Note [facility] 02-21-2023 Note [facility] 02-21-2023 Miscellaneous Formatting of this note migh t be different from the original. [facility] Notes Yes, will sign. Formatting of this note might be differe nt from the original. Panfilo Oreilly MD Please advise if you are agr eeable to signing and following for HHC services? Our Clinicians will be sending the Plan of Care to you for review and approval. They will reach out for any appropriate orde rs required to provide home care services for the patient. We are not able to initiate HHC services without a following provider. Home care clinicians may als o obtain orders from [facility] Virtualist Providers Thank you and we would be happy to answe r any questions. Geeta Munguia LPN 02/20/2023 3:40 PM documented in this encounter 02-21-2023 History of Present [facility] illness Narrative TRANSITION CARE MANAGEMENT (TCM) PHARMACY CONTACT Provider Action/FYI: TCM Medication Reconciliatio n partially completed for patient. See medication list table below for details. Medications discussed per patient preference outlined in bold in table below. Initial contact with patient post discharge, spoke to patient, and verified that any applicable caregiver is active in patient's medical care. Patient identified by name and . Summary: -Pt discharged from [facility] on 02/20/23. -Medication review done: Ken toney medication review completed - per patient preference Patient Concerns: Review and discussion of med ications with patient as outlined in medication table below. Source of medication information obtained from Memory. Dispense records from pharmacy also utilized to obtain add itional medication fill hist ory. Reviewed bolded medications only per pt preference. Pt reports remaining medications on AVS are accurate. No additional reported medication questions or concerns at this time. History of Present Illness: The following content has be en copied and pasted from patient's discharge summary. If discharge summary unavailable, After Visit Summary or last pertinent inpatient notes are copied and pasted. REASON I WAS IN THE HOSPITAL: celluliti s SUMMARY OF WHAT HAPPENED WHI LE I WAS IN THE HOSPITAL: Ms. Overton presented to an outside facility with purulent drainage from her wound. WBC was 11, and CT showed left upper thigh thickening and ulcerat ion with small amount of res idual subcutaneous gas. She was transferred to [facility] and surgery was consulted. Wound appears to have healed significantly since previously examined by this surgical team and is with granulation tissue. Ms. Overton was started on antibiotics for cellulitis and will continue on Bactrim and should continue a 5 day course at discharge. She was seen by the inpatient wound care te am and given recommendations for continued wet to dry dressing changes twice daily. Ms. Overton is stable for discharge to home with continued home health care for wound care. She should follow up with her PCP for continued wound needs. Medication Reconciliation: Legend: Stopped, New, Changed, Added to list Medication List Medication Directions Comments Action/Pl an albuterol (PROVENTIL) 2.5 mg /3 mL (0.083 %) nebulizer solution Use 3 mL via nebulizer every 2 hours as needed for wheezing/shortness of breath. Use over 5-15minutes. apixaban (ELIQUIS) 5 mg tab(s) Take 1 ta blet by mouth twice daily. atorvastatin (LIPITOR) 80 mg tablet Take 1 tablet by mouth once daily. blood sugar diagnostic (FREE STYLE PRECISION TABITHA STRIPS) test strip To use 4 times daily to monitor glucose. Dx: uncontrolled type II DM, on insulin cholecalciferol, Vitamin D3, (VITAMIN D3) 1,250 mcg (50,000 unit) cap capsule Take 1 capsule by mouth one time a week. For 12 weeks Discontinued: 02/20/2023 1:43 PM Stop per AVS - confirms COMPOUNDED PRESCRIPTION Wedg e pillow to be used nightly to elevate head for LOGAN Dx: LOGAN Compression Knee Highs KNEE HIGH COMPRESSION STOCKINGS 20-30 MM. DX: EDEMA, lymphedema, venous insufficiency dilTIAZem CD (CARDIZEM CD) 1 20 mg 24 hr capsule Take 1 capsule by mouth once daily. famotidine (PEPCID) 20 mg tablet Take 1 tablet by mouth at bedtime as needed. fenofibrate nanocrystallized (TRICOR) 145 mg tablet Take 1 tablet by mouth once daily. flash glucose scanning reade r (CymbetSTYLE DOMENICO 14 DAY READER) 1 Device four times daily. flash glucose sensor (FREEST YLE DOMENICO 14 DAY SENSOR) kit 1 Each once daily. Use 1 device for up to 14 days to monitor sugars 4 times per day. furosemide (LASIX) 20 mg tab let Take 1 tablet by mouth twice daily. Take BID with 80 mg lasix to equal 100 mg BID Ordered 12/12/22 Confirm dose? Unable to review per pt pr eference furosemide (LASIX) 40 mg tab let Take 1-2 tablets BID for lower extremity edema Ordered 07/09/22 gabapentin (NEURONTIN) 800 mg tablet BI E 1 TABLET BY MOUTH THREE TIMES A DAY insulin glargine U-300 conc (TOUJEO MAX U-300 SOLOSTAR) 300 unit/mL (3 mL) inpn Inject 105 Units subcutaneously twice daily. insulin lispro (HUMALOG KWIK PEN INSULIN) 100 unit/mL Inject 50 units plus sliding scale three times daily before meals (Sliding scale: 2 units for every 50 points >150; TDD 150 units) Insulin Covel, Disposable, (BD ULTRA-FINE GABINO PEN NEEDLE) 32 gauge x 5/32 Inject 1 Each subcutaneously four times daily. use with insulin Lancets lancets Use to check blood sugar s four times daily as instructed lisinopril (ZESTRIL, PRINIVIL) 10 mg tab let Take 1 tablet by mouth once daily. loratadine (CLARITIN) 10 mg tablet Take 1 tablet by mouth once daily. metFORMIN ER (GLUCOPHAGE XR) 500 mg 24 hr tablet Take 4 tablets by mouth every morning. metoprolol succinate ER (TOP ROL XL) 25 mg 24 hr tablet Take 1 tablet by mouth once daily. multivitamin tablet Take 1 tablet by th once daily. omeprazole (PRILOSEC) 40 mg capsule Take 1 capsule by mouth once daily. oxyCODONE IR (ROXICODONE) 5 mg immediate release tablet Take 1 tablet by mouth every 6 hours as needed for pain for up to 3 days. potassium chloride 20 mEq TbER Take 1 ta blet by mouth twice daily. Potassium Date Value Ref Range Status 02/20/2023 4.3 3.7 - 5.1 mmol/L Final semaglutide (OZEMPIC) 1 mg/d ose (4 mg/3 mL) pen Inject 1 mg subcutaneously one time a week. This REPLACES Trulicity. sulfamethoxazole-trimethopri m (BACTRIM DS) 800-160 mg per tablet Take 1 tablet by mouth every 12 hours for 10 doses. 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 Overton was started on an tibiotics for cellulitis and will continue on Bactrim and should continue a 5 day course at discharge WALKER ROLLATOR SEAT WITH 6 WHEELS - RE D Patient requires large seat Preferred pharmacy: e- [facility] [id number] - [place] [address] - [address] [facility] [phone] [address] [facility] [address] [facility] [address] - [place] [phone] - [address] [facility] [phone] [address] [facility] [address] [id number] [place] [address] - [address] [facility] [phone] [id number] [address] [facility] [address] [facility] [address] [place] [phone] Estimated Creatinine Clearance: 196.2 mL /min (based on SCr of 0.59 mg/dL). Estimated Glomerular Filtration Rate (mL /min/1.73m ) Date Value 02/20/2023 113 eGFR- (no units) Date Value 01/23/2022 >60 Additional follow up: Next 5 Appointments None Interventions Made: Patient education/Me dication counseling Pharmacist Recommendations Made None Care Coordination: None at this time Time spent on patient: 30-45 minutes Annie Borges RPh February 21, 2023 8:39 AM documented in this encounter 02-20-2023 Note [facility] 02-19-2023 Miscellaneous Formatting of this note migh t be different from the original. [facility] Notes Tried reaching patient, cordelia le to leave message due to VM not being setup. Sandra Potts LPN Formatting of this note might be differe nt from the original. ----- Message from Aureliano Oreilly MD sent at 02/19/2023 11:07 AM EDT ----- Cholesterol looks good on current regime n. Diabetes improving, but stil l uncontrolled at 8.4. continue current regimen and will discuss further on follow up. Other labs stable. Her WBC and neutrophils are high which is likely due to her non healing wound in left groin with pus drainage. Looks like she has been admitted for her non healing wound. Will need to f/u within 1 week after discharge this time. documented in this encounter 02-18-2023 Note [facility] 02-18-2023 History of Present [facility] illness Narrative Chief Complaint No chief complaint on file. HPI Macario Overton is a 47 year old female who presents here today for Hospital Discharge Follow up. Accompanied today by daughter and grand daughter. Patient admitted to [facility] fro m 12/25 to 01/01 and then again from 01/13 to 01/16 for necrotizing soft tissue infection of the left inner thigh. Initial Discharge summary as follows: SUMMARY OF WHAT HAPPENED DEREK BUSTAMANTE WAS IN THE HOSPITAL: Patient was admitted on 12/25/2022 for a necrotizing soft tissue infection on her left inner thigh. Patient was bi en to the operating room on 12/26 for soft tissue debridement. A jade d rain was left in the wound. Postoperatively, patient was initially c ared for in the ICU but was transferred to to a regular floor on 12/03. Patient's wound was cared for with daily wet to dry dressing changes a nd antibiotics. Patient's jade drain was taken out on 01/01/2023. Patient is felt stable to be discharged home with home physical therapy. Patient is to follow-up outpatient in 2 weeks with general surgery. Follow up hospitalization summary as roxy coe: SUMMARY OF WHAT HAPPENED WHILE I WAS IN THE HOSPITAL: 47 year old female who was previously ad mitted on 12/25/2022 for a necrotizing soft tissue infection on her left inner thigh. Patient was taken to the operating room on 12/26 for soft tissue debridement. A jade drain was left in the wound and it was p acked with wet to dry dressings. She was discharged in stable condition w [facility] wound care and follow up in 2 weeks. She presented to the ED 01/12/2023 morning with increased pain, drainage, and induration to her right gr oin, L thigh and perineal area. She was given clindamycin for treatment. She followed up in clinic stating the drainage continues to increase and i s more purulent. On 01/14, Dr. Zack Johnson performed an Incision and drainag e of bilateral groins, wet-to-dry packing placed in left incision, iodofor m placed in right groin incision x2 (FINDINGS): Two small punctuate indurated lesions on right inner thigh, lanced and irrigated and packed with iodoform Left groin with healthy granulation tiss ues with few loculations released, wet to dry packing placed. Preliminary wound cultures with gram pos itive cocci, continued on Zosyn/Diflucan. Purulent vaginal dischar ge noted during OR therefore STI urine screen performed. Wound Care team recommended: Wash wounds to bilateral inner thigh/groin areas with NS. Pack left wwound with NS wet to dry, cover with ABD pads. To right wounds x 2, pack with iodoform, change bid, cover with foam dressing or gauze/ABD pads. Home Health Care ordered as pt was activ e with [facility] and [facility] (prior to a dmission patient required assistance with personal care and wound care. + PCP , + DME, + RX coverage). Ms. Overton is stable for discharge on . She will continue local wound care at home. Preliminary wound cu ltures noted few staph aureus, will be discharged on 5 days of Bactrim DS. Discussion with Ms. Overton in regards to concern for possible STI, she reports low risk for such, opted not to be treated phylactically prior to discharge. Ms. Overton to call EGS clinic for results if she has not re ceived a call in ~ 1 weeks time. Since discharge, [facility] has bee n out to her home to manage her stage III pressure sore on outer labia/thigh. Applying medi honey, calcium alginate to wound, then dry sterile dressing, which is being change d daily. Referred to wound c are, but they have not been in contact with patient yet. Patient states home health is supposed to be out every other day, but are only coming out once per week due to being short staffed. Medi honey [facility]er [facility] came in the mail. Home health supposed to be coming out again today and will discuss with them how to apply the Medi honey. States that she is getting a lot of yellow/purulent drainage. Needing to change her dressing more than once per day due to discharge. Has swelling and pain without redness. Denies fever/chills. Blood sugar this morning 167 per patient . Past medical history, appointments, medi cations, allergies reviewed. Previous Medical History PAST MEDICAL HISTORY Diagnosis Date Abscess of right groin 04/07/2014 Acute diastolic heart failure (HCC) 01/02 022 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[facility]) 07/2019 Left, small lesion on CT Anxiety Cholecystitis s/p cholecystectomy Diabetes mellitus without mention of com plication Diabetic neuropathy ([facility]) Seeing Neurology Diastolic heart failure ([facility]) GERD (gastroesophageal reflux disease) History of abnormal cervical Pap smear History of tobacco use Hyperlipidemia Insomnia Microalbuminuria Morbid obesity ([facility]) Narcotic abuse ([facility]) Non-STEMI (non-ST elevated myocardial in farction) ([facility]) 2/2 respiratory illness LOGAN (obstructive sleep apnea) using CPAP, Dr. Dumont Pulmonary embolism ([facility]) Seasonal allergies Unspecified essential hypertension Previous Surgical History PAST SURGICAL HISTORY Procedure Laterality Date ANALGESIA,EPIDURAL,LABOR & 199 5 INCISION & DRAINAGE ABSCESS COMPLICATED/ MULTIPLE 04/07/2014 LAPS SURG CHOLECYSTECTOMY W/CHOLANGIOGRA PHY 11/04/2007 PAST SURGICAL HISTORY OF Left 2007 arthroscopic knee surgery PAST SURGICAL HISTORY OF 1995 LEEP PAST SURGICAL HISTORY OF 12/25/2022 I&D abscess perineal Family History FAMILY HISTORY Problem Relation Age of Onset Allergies Mother seasonal Arthritis Mother COPD Mother Diabetes Mother Emphysema Mother Headache Mother Obesity Mother Coronary Artery Disease Father Diabetes Father Heart Father Hypertension Father Stroke Father Lipids Father Blood Clots Father Anesthesia Brother Obesity Brother Asthma Brother Headache Brother Coronary Artery Disease Maternal Grandfa ther Heart Maternal Grandfather Coronary Artery Disease Paternal Grandfa ther Heart Paternal Grandfather Stroke Paternal Grandfather Osteoporosis Paternal Grandfather Obesity Daughter Asthma Daughter Allergies Child seasonal Arthritis Child Hearing Loss Child Allergies Maternal Aunt Arthritis Maternal Aunt Cancer Maternal Aunt liver, colon, pancreatic Colon Cancer Maternal Aunt Diabetes Maternal Aunt Emphysema Maternal Aunt Hypertension Maternal Aunt Osteoporosis Maternal Aunt Lipids Maternal Aunt Thyroid Maternal Aunt Cancer Maternal Uncle lung Coronary Artery Disease Maternal Uncle Diabetes Maternal Uncle Emphysema Maternal Uncle Heart Maternal Uncle Hypertension Maternal Uncle Seizures Maternal Uncle Lipids Maternal Uncle Diabetes Paternal Aunt Emphysema Paternal Aunt Coronary Artery Disease Paternal Uncle Diabetes Paternal Uncle Emphysema Paternal Uncle Cancer Other cousin Cervical Cancer Other cousins Hearing Loss Other niece Thyroid Other cousins Patient Allergies ALLERGIES Allergen Reactions Flexeril [Cyclobenz* Hives Zoloft [Sertraline] Vomiting Current Medications Current Outpatient Medications on File P rior to Visit Medication Sig omeprazole (PRILOSEC) 40 mg capsule Take 1 capsule by mouth once daily. metFORMIN ER (GLUCOPHAGE XR) 500 mg 24 hr tablet Take 4 tablets by mouth every morning. dilTIAZem CD (CARDIZEM CD) 1 20 mg 24 hr capsule Take 1 capsule by mouth once daily. metoprolol succinate ER (TOP ROL XL) 25 mg 24 hr tablet Take 1 tablet by mouth once daily. apixaban (ELIQUIS) 5 mg tab(s) Take 1 ta blet by mouth twice daily. loratadine (CLARITIN) 10 mg tablet Take 1 tablet by mouth once daily. lisinopril (ZESTRIL, PRINIVIL) 10 mg tab let Take 1 tablet by mouth once daily. fenofibrate nanocrystallized (TRICOR) 145 mg tablet Take 1 tablet by mouth once daily. atorvastatin (LIPITOR) 80 mg tablet Take 1 tablet by mouth once daily. flash glucose sensor (LeadGeniusE DOMENICO 14 DAY SENSOR) kit 1 Each once daily. Use 1 device for up to 14 days to monitor sugars 4 times per day. gabapentin (NEURONTIN) 800 mg tablet BI E 1 TABLET BY MOUTH THREE TIMES A DAY semaglutide (OZEMPIC) 1 mg/d ose (4 mg/3 mL) pen Inject 1 mg subcutaneously one time a week. This REPLACES Trulicity. furosemide (LASIX) 20 mg tab let Take 1 tablet by mouth twice daily. Take BID with 80 mg lasix to equal 100 mg BID flash glucose scanning reade r (FREESTYLE DOMENICO 14 DAY READER) 1 Device four times daily. blood sugar diagnostic (FREE STYLE PRECISION TABITHA STRIPS) test strip To use 4 times daily to monitor glucose. Dx: uncontrolled type II DM, on insulin insulin glargine U-300 conc (TOUJEO MAX U-300 SOLOSTAR) 300 unit/mL (3 mL) inpn Inject 105 Units subcutaneously twice daily. insulin lispro (HUMALOG KWIK PEN INSULIN) 100 unit/mL Inject 50 units plus sliding scale three times daily before meals (Sliding scale: 2 units for every 50 points >150; TDD 150 units) albuterol (PROVENTIL) 2.5 mg /3 mL (0.083 %) nebulizer solution Use 3 mL via nebulizer every 2 hours as needed for wheezing/shortness of breath. Use over 5-15minutes. Insulin Covel, Disposable, (BD ULTRA-FINE GABINO PEN NEEDLE) 32 gauge x 5/32 Inject 1 Each subcutaneously four times daily. use with insulin famotidine (PEPCID) 20 mg tablet Take 1 tablet by mouth at bedtime as needed. furosemide (LASIX) 40 mg tablet Take 1-2 tablets BID for lower extremity edema WALKER ROLLATOR SEAT WITH 6 WHEELS - RE D Patient requires large seat Lancets lancets Use to check blood sugar s four times daily as instructed cholecalciferol, Vitamin D3, (VITAMIN D3) 1,250 mcg (50,000 unit) cap capsule Take 1 capsule by mouth one time a week. For 12 weeks potassium chloride 20 mEq TbER Take 1 ta blet by mouth twice daily. multivitamin tablet Take 1 tablet by rosalee th once daily. Compression Knee Highs KNEE HIGH COMPRESSION STOCKINGS 20-30 MM. DX: EDEMA, lymphedema, venous insufficiency COMPOUNDED PRESCRIPTION Wedg e pillow to be used nightly to elevate head for LOGAN Dx: LOGAN Current Facility-Administered Medication s on File Prior to Visit Medication perflutren lipid microsphere s 1.3 mL in NaCl (PF) 0.9% 10 mL injection (DEFINITY) sodium chloride 0.9 % (flush) 10 mL (BD POSIFLUSH) perflutren lipid microsphere s 1.3 mL in NaCl (PF) 0.9% 10 mL injection (DEFINITY) sodium chloride 0.9 % (flush) 10 mL (BD POSIFLUSH) Social History Social History Tobacco Use Smoking status: Former Packs/day: 0.25 Years: 21.00 Pack years: 5.25 Types: Cigarettes Smokeless tobacco: Never Tobacco comments: d/c x2 wks Vaping Use Vaping Use: Former Substance Use Topics Alcohol use: Not Currently Comment: rarely Drug use: No Review of Symptoms REVIEW OF SYSTEMS See HPI EXAM: BP 128/72 Pulse 99 Resp 18 LMP 08/2016 SpO2 91% General Appearance: Well basilio earing, alert, in no acute distress, well-hydrated, well nourished. Seated in wheelchair. On oxygen. Skin: Patient has persistent open wound in her left groin which is about the length of my hand and several cm's deep with purulent discharge. Granulation tissue noted on either side of the wound. Patien t does have cellulitis around wound with out streaking. Positive for TTP. Lungs: Lungs clear to auscultation. No w heezing, rhonchi, rales.. Heart: RRR without murmur, gallop, or ru bs. No ectopy. Abdomen: Normal abdominal ex am, Abdomen soft, non-tender. Bowel sounds normal. No masses, organomegaly. Health Maintenance List HEPATITIS B(1 of 3 - 3-dose series) Neve r done DILATED RETINAL EXAM Never done MAMMOGRAM due on 10/09/2018 COVID-19 VACCINE(3 - Booster for Damir series) due on 03/15/2022 COLORECTAL CANCER SCREENING Never done DEPRESSION ASSESSMENT Never done LDL CHOLESTEROL due on 12/12/2022 HBA1C due on 02/09/2023 PAP TESTING due on 04/30/2023 HPV TESTING due on 04/30/2023 URINE ALBUMIN:CREATININE RATIO due on ANNUAL PCP TEAM CHRONIC DISEASE VISIT patrice mei on 11/08/2023 DIABETIC FOOT EXAM due on 12/25/2023 BP CONTROLLED (<130/80) due on 4 DTAP,TDAP,TD(2 - Td or Tdap) due on 12/2026 PNEUMOCOCCAL(3 - PPSV23 if available, el se PCV20) due on 2042 INFLUENZA Completed HEPATITIS C SCREENING Completed HIV SCREENING Completed ASSESSMENT/PLAN: 1. Abscess of groin, left - ICD9: 682.2, ICD10: L02.214 (primary diagnosis) Patient is s/p I&D with larg e open wound which does not appear to be healing well. Home health is helping to manage, but is only coming out once per week. She has new purulent drainage and signs of cellulitis without sepsis. W ill start clindamycin and try to get her in with the wound care clinic [facility] as I suspect she will need a wound vac and closer follow up. Discussed if she is not able to get i n quickly and infection symp toms are not improving, she may need to return to the ED for further treatment and wound vac placement. Continue dressing changes at least daily at home. Red flags for re-assessment reviewed with patient in detail. - ABSCESS AND WOUND CULTURE WITH GRAM ST AIN - CLINDAMYCIN HCL 300 MG CAPSULE 2. Non-healing open wound of left groin, initial encounter - ICD9: 879.5, ICD10: S31.104A See above. - ABSCESS AND WOUND CULTURE WITH GRAM ST AIN - CLINDAMYCIN HCL 300 MG CAPSULE - CBC + DIFF - COMP METABOLIC PANEL 3. Necrotizing soft tissue infection - I CD9: 729.99, ICD10: M79.89 See above 4. Cellulitis of skin - ICD9: 682.9, ICD 10: L03.90 - Begin treatment with Clindamycin - Check labs CBC with Diff - No lymphangetic streaking, this was defined for patient to watch for and to seek medical care immediately if appears 5. Type 2 diabetes mellitus with diabetic polyneuropathy, with long-term current use of insulin (HCC) - ICD9: 250.60, 357.2, V58.67, ICD10: E11.42, Z79.4 Due to recheck her A1c. Gluc ose not elevated in DKA range this morning. Continue to check 4 times daily. - LIPID PANEL, NONFASTING - HGB A1C I spent a total of 40 minute s on the date of the service which included preparing to see the patient, [id number] patient care, completing clinical documentation, obtaining and/or reviewing separately obtained history, performing a medically appropriate examination, counseling and educating the patient/family/caregiver, and ordering medications, tests, or procedures. Panfilo Oreilly MD documented in this encounter 02-04-2023 Miscellaneous Formatting of this note migh t be different from the original. [facility] Notes Josie, a [facility] nurse with [facility] [employer] calling to request Physical Therapy evaluation order for patient. States patient recently moved into a trailer and is having some difficulty getting around a nd also difficulty with endurance. Repor ts patient is on oxygen. Please call Josie back at [phone]. Thank you. documented in this encounter 02-03-2023 Note [facility] 02-03-2023 History of Present [facility] illness Narrative Per [facility] Eligibility report: patient meets [facility] criteria: MV >= 72 hours MICU stay. Discharge date prior to 01/06/2023 (01/30/2023 dashboard update); not contacted/enrolled in the [facility] Program for this 12/25-01/01/2023 [place] admission. PIR Enrollment Status [facility] Call Attempt None Enrolled in [facility] Program? No - Other documented in this encounter 02-03-2023 Miscellaneous Formatting of this note is d ifferent from the original. [facility] Notes Last appt: 11/08/22 - Next scheduled appt : 02/05/23 Patient has been identified by name and date of : Yes Requested Prescriptions Pending Prescriptions Disp Refills omeprazole (PRILOSEC) 40 mg capsule 90 c apsule 1 Sig: Take 1 capsule by mouth once daily. RX INSTRUCTIONS: Pharmacy initiated this request. No need to notify patient. Irena Bland LPN documented in this encounter 01-30-2023 Miscellaneous Formatting of this note migh t be different from the original. [facility] Notes Phoned patient and she is ab le to come in 02/03/23 at 1120a for 40 min. Scheduling made changes. Formatting of this note might be differe nt from the original. Phoned patient to see about rescheduling her 02/03/23 appt to a 40 min slot. Patient was initially scheduled for 40 and was rescheduled to a 20 min slot. documented in this encounter 01-28-2023 Note [facility] 01-28-2023 History of Present [facility] illness Narrative TRANSITION CARE MANAGEMENT (TCM) FOLLOW-UP NOTE Provider Action/MARSHALLI Called for TCM. No answer at this time. Voicemail box not set up, unable to leav e message. PCP 01/24 cancelled- rescheduled to 02/03 Patient identified by name and date of b irth: NO- no answer Summary: Pt discharged from [facility] on 01/16/23. Admitted for: Purulent drainage from wou nds. Concerns: No answer, unable to leave message Manager [employer] plan for next outreach: Will follow up next week [employer] Education Ordered -: No Signature Raquel Payne RN January 28, 2023 documented in this encounter 01-21-2023 Miscellaneous Formatting of this note migh t be different from the original. [facility] Notes Zhane notified of providers message. Sandra Potts LPN Formatting of this note might be differe nt from the original. OK to resume [facility]. Keep f/u a ppointment as scheduled. Formatting of this note might be differe nt from the original. Zhane from [facility] calls to report that patient discharged from hospital on 01/16/2023. Zhane asking if it is ok to resume [facility] services with patient tomorrow 01/22/2023. Please review and advise, Georgina Samayoa RN documented in this encounter 01-20-2023 Miscellaneous Formatting of this note migh t be different from the original. [facility] Notes Pt given message, states she can't take ibuprofen and will continue with the tylenol. Margarita TOWNSEND Formatting of this note might be differe nt from the original. I&D tay groin abscesses on 1 01/14/23- pt requesting refill on oxycodone for dressing changes. Uses pharmacy listed in chart. Margarita TOWNSEND documented in this encounter 01-20-2023 Note [facility] 01-17-2023 Note [facility] 01-17-2023 Note [facility] 01-17-2023 Note [facility] 01-17-2023 History of Present [facility] illness Narrative TRANSITION CARE MANAGEMENT (TCM) PHARMACY CONTACT Provider Action/FYI: TCM Medication Reconciliatio n partially completed for patient. See medication list table below for details. Medications discussed per patient preference outlined in bold in table below. Initial contact with patient post discharge, spoke to patient, and verified that any applicable caregiver is active in patient's medical care. Patient identified by name and . Summary: -Pt discharged from [facility] on 01/16/23. -Medication review done: Ken toney medication review completed - per patient preference Patient Concerns: TCM Medication Reconciliatio n partially completed for patient. See medication list table below for details. Medications discussed per patient preference outlined in bold in table below. History of Present Illness: The following content has be en copied and pasted from patient's discharge summary. If discharge summary unavailable, After Visit Summary or last pertinent inpatient notes are copied and pasted. SUMMARY OF WHAT HAPPENED WHILE I WAS IN THE HOSPITAL: 47 year old female who was p reviously admitted on 12/25/2022 for a necrotizing soft tissue infection on her left inner thigh. Patient was taken to the operating room on 12/26 for soft tissue debridement. A jade drain was left in the wound and it was packed with wet to dry dressings. She was discharged in stable condition with wound care and follow up in 2 weeks. She presented to the ED 01/12/2023 morning with increased pain, drainage, and induration to her right groin, L thigh and perineal area. She was given clindamycin for treatment. She followed up in clinic stating the drainage continues to in crease and is more purulent. On 01/14, Dr. Zack Johnson performed an Incision and drainage of bilateral groins, wet-to-dry packing placed in left incision, iodofor m placed in right groin incision x2 (FINDINGS): Two small punctuate indurate d lesions on right inner thigh, lanced and irrigated and packed with iodoform Left groin with healthy gran ulation tissues with few loculations released, wet to dry packing placed. Preliminary wound cultures w ith gram positive cocci, continued on Zosyn/Diflucan. Purulent vaginal discharge noted during OR therefore STI urine screen performed. Wound Care team recommended: Wash wounds to bilateral inner thigh/groin areas with NS. Pack left wwound with NS wet to dry, cover with ABD pads. To right wounds x 2, pack with iodoform, change bid, cover with foam dressing or gauze/ABD pads. Home Health Care ordered as pt was active with [facility] and [facility] (prior to admission patient required assistance with personal care and wound care. + PCP , + DME, + RX coverage). Ms. Overton is stable for dis charge on 01/16/2023. She will continue local wound care at home. Preliminary wound cultures noted few staph aureus, will be discharged on 5 days of Bactrim DS. Discussion with Ms. Overton in regards to concern for possible STI, she reports low risk for such, opted not to be treated phylactica lly prior to discharge. Ms. Overton to call EGS clinic for results if she has not received a call in ~ 1 weeks time Transitions of Care Critical Issues: LAB MONITORING NEEDED: Final wound culturs; Gonorrhea/ Chalmydia/ Bacterial vaginosis screening LABS AND PROCEDURES PENDING AT DISCHARGE : Medication Reconciliation: Legend: Stopped, New, Changed, Added to list Medication List Medication Directions Comments Action/Pl an albuterol (PROVENTIL) 2.5 mg /3 mL (0.083 %) nebulizer solution Use 3 mL via nebulizer every 2 hours as needed for wheezing/shortness of breath. Use over 5-15minutes. apixaban (ELIQUIS) 5 mg tab(s) Take 1 ta blet by mouth twice daily. atorvastatin (LIPITOR) 80 mg tablet Take 1 tablet by mouth once daily. blood sugar diagnostic (FREE STYLE PRECISION TABITHA STRIPS) test strip To use 4 times daily to monitor glucose. Dx: uncontrolled type II DM, on insulin cholecalciferol, Vitamin D3, (VITAMIN D3) 1,250 mcg (50,000 unit) cap capsule Take 1 capsule by mouth one time a week. For 12 weeks COMPOUNDED PRESCRIPTION Wedg e pillow to be used nightly to elevate head for LOGAN Dx: LOGAN Discontinued: 01/16/2023 2:26 PM Discontinued: 01/16/2023 2:26 PM Compression Knee Highs KNEE HIGH COMPRESSION STOCKINGS 20-30 MM. DX: EDEMA, lymphedema, venous insufficiency dilTIAZem CD (CARDIZEM CD) 1 20 mg 24 hr capsule Take 1 capsule by mouth once daily. famotidine (PEPCID) 20 mg tablet Take 1 tablet by mouth at bedtime as needed. fenofibrate nanocrystallized (TRICOR) 145 mg tablet Take 1 tablet by mouth once daily. flash glucose scanning reade r (CymbetSTYLE DOMENICO 14 DAY READER) 1 Device four times daily. flash glucose sensor (FREEST YLE DOMENICO 14 DAY SENSOR) kit 1 Each once daily. Use 1 device for up to 14 days to monitor sugars 4 times per day. furosemide (LASIX) 20 mg tab let Take 1 tablet by mouth twice daily. Take BID with 80 mg lasix to equal 100 mg BID furosemide (LASIX) 40 mg tablet Take 1-2 tablets BID for lower extremity edema gabapentin (NEURONTIN) 800 mg tablet BI E 1 TABLET BY MOUTH THREE TIMES A DAY insulin glargine U-300 conc (TOUJEO MAX U-300 SOLOSTAR) 300 unit/mL (3 mL) inpn Inject 105 Units subcutaneously twice daily. insulin lispro (HUMALOG KWIK PEN INSULIN) 100 unit/mL Inject 50 units plus sliding scale three times daily before meals (Sliding scale: 2 units for every 50 points >150; TDD 150 units) Hemoglobin A1C (%) Date Value 11/11/2022 10.1 12/12/2021 10.0 Insulin Covel, Disposable, (BD ULTRA-FINE GABINO PEN NEEDLE) 32 gauge x /32 Inject 1 Each subcutaneously four times daily. use with insulin Lancets lancets Use to check blood sugar s four times daily as instructed lisinopril (ZESTRIL, PRINIVIL) 10 mg tab let Take 1 tablet by mouth once daily. Potassium Date Value Ref Range Status 01/16/2023 3.8 3.7 - 5.1 mmol/L Final loratadine (CLARITIN) 10 mg tablet Take 1 tablet by mouth once daily. metFORMIN ER (GLUCOPHAGE XR) 500 mg 24 hr tablet Take 4 tablets by mouth every morning. metoprolol succinate ER (TOP ROL XL) 25 mg 24 hr tablet Take 1 tablet by mouth once daily. multivitamin tablet Take 1 tablet by rosalee th once daily. omeprazole (PRILOSEC) 40 mg capsule Take 1 capsule by mouth once daily. Discontinued: 01/16/2023 2:26 PM oxyCODONE IR (ROXICODONE) 5 mg immediate release tablet Take 1 tablet by mouth every 6 hours as needed for up to 5 days. Taking as prescribed without any issues [facility] - Dispensed potassium chloride 20 mEq TbER Take 1 ta blet by mouth twice daily. semaglutide (OZEMPIC) 1 mg/d ose (4 mg/3 mL) pen Inject 1 mg subcutaneously one time a week. This REPLACES Trulicity. Shower Chair with Back once daily. Use a s directed sulfamethoxazole-trimethopri m (BACTRIM DS) 800-160 mg per tablet Take 1 tablet by mouth twice daily for 5 days. Taking as prescribed without any issues [facility] - Dispensed WALKER ROLLATOR SEAT WITH 6 WHEELS - RE D Patient requires large seat Preferred pharmacy: [facility] [id number] - [place] [address] - [address] - [phone] [address] [facility] [address] e- [employer] [facility] - [address] - [place] [address] - [address] [facility] - [phone] [address] [facility] [address] e- [id number] [place] [address] - [address] [facility] - [phone] [address] [facility] [address] [facility] [address] [address] Estimated Creatinine Clearance: 124.1 mL /min (based on SCr of 0.95 mg/dL). Estimated Glomerular Filtration Rate (mL /min/1.73m ) Date Value 01/16/2023 75 eGFR- (no units) Date Value 01/23/2022 >60 Additional follow up: Next 5 Appointments None Interventions Made: None Pharmacist Recommendations Made None Care Coordination: None at this time Time spent on patient: 15-30 minutes Brissa Kilpatrick zuri January 17, 2023 12:59 PM documented in this encounter 01-16-2023 Miscellaneous Formatting of this note migh t be different from the original. [facility] Notes Reviewed and agree. Formatting of this note might be differe nt from the original. Carolee from [facility] and states that patient was directly admitted by her surgeon after appointment on 01/13/2023. Patient currently is in [facility]. When patient gets discharged asking fo r discharge paperwork to me faxed to . Georgina Samayoa, RN documented in this encounter 01-16-2023 Note [facility] 01-15-2023 Note [facility] 01-14-2023 Note [facility] 01-14-2023 Miscellaneous Formatting of this note migh t be different from the original. [facility] Notes Patient did not show up for appointment nor did she call to cancel or reschedule. No Show letter sent to patient. Formatting of this note might be differe nt from the original. Patient has 11a appt and mague escudero 10 min late attempted to reach her to offer 40 min afternoon appt for Hosp follow up. No answer and VM not set up unable to leave message. documented in this encounter 01-14-2023 Note [facility] 01-14-2023 Note [facility] 01-14-2023 History of Present [facility] illness Narrative TRANSITION CARE MANAGEMENT (TCM) FOLLOW-UP NOTE Provider Action/FYI Chart reviewed. Pt readmitte d to [facility] 01/13/23 for perineal wound infection. Name removed from Care Team d/t readmission. Signature Mimi Crowley RN January 14, 2023 documented in this encounter 01-13-2023 Note [facility] 01-13-2023 History of Past illness Narra tive Problem Noted Date Resolved Date Necrotizing fasciitis 01/13/2023 01/16/2023 Overview:Formatting of this note might b e different from the original. Pt did not have necrotizing fasciitis du ring this current hospitalization. Acute cholecystitis 11/06/2007 11/20/2021 documented as of this encounter (statuses as of 01/16/2023)[facility] 01-13-2023 History of Past illness Narrative Problem Noted Date Resolved Date Necrotizing fasciitis 01/13/2023 01/16/2023 Overview:Formatting of this note might b e different from the original. Pt did not have necrotizing fasciitis du ring this current hospitalization. Acute cholecystitis 11/06/2007 11/20/2021 documented as of this encounter (statuses as of 01/17/2023)[facility] 01-13-2023 History of Past illness Narrative Problem Noted Date Resolved Date Necrotizing fasciitis 01/13/2023 01/16/2023 Overview:Formatting of this note might b e different from the original. Pt did not have necrotizing fasciitis du ring this current hospitalization. Acute cholecystitis 11/06/2007 11/20/2021 documented as of this encounter (statuses as of 01/21/2023)[facility] 01-13-2023 History of Past illness Narrative Problem Noted Date Resolved Date Necrotizing fasciitis 01/13/2023 01/16/2023 Overview:Formatting of this note might b e different from the original. Pt did not have necrotizing fasciitis du ring this current hospitalization. Acute cholecystitis 11/06/2007 11/20/2021 documented as of this encounter (statuses as of 01/21/2023)[facility] 01-13-2023 History of Past illness Narrative Problem Noted Date Resolved Date Necrotizing fasciitis 01/13/2023 01/16/2023 Overview:Formatting of this note might b e different from the original. Pt did not have necrotizing fasciitis du ring this current hospitalization. Acute cholecystitis 11/06/2007 11/20/2021 documented as of this encounter (statuses as of 01/28/2023)[facility] 01-13-2023 History of Past illness Narrative Problem Noted Date Resolved Date Necrotizing fasciitis 01/13/2023 01/16/2023 Overview:Formatting of this note might b e different from the original. Pt did not have necrotizing fasciitis du ring this current hospitalization. Acute cholecystitis 11/06/2007 11/20/2021 documented as of this encounter (statuses as of 01/30/2023)[facility] 01-13-2023 History of Past illness Narrative Problem Noted Date Resolved Date Necrotizing fasciitis 01/13/2023 01/16/2023 Overview:Formatting of this note might b e different from the original. Pt did not have necrotizing fasciitis du ring this current hospitalization. Acute cholecystitis 11/06/2007 11/20/2021 documented as of this encounter (statuses as of 02/03/2023)[facility] 01-13-2023 History of Past illness Narrative Problem Noted Date Resolved Date Necrotizing fasciitis 01/13/2023 01/16/2023 Overview:Formatting of this note might b e different from the original. Pt did not have necrotizing fasciitis du ring this current hospitalization. Acute cholecystitis 11/06/2007 11/20/2021 documented as of this encounter (statuses as of 02/03/2023)[facility] 01-13-2023 History of Past illness Narrative Problem Noted Date Resolved Date Necrotizing fasciitis 01/13/2023 01/16/2023 Overview:Formatting of this note might b e different from the original. Pt did not have necrotizing fasciitis du ring this current hospitalization. Acute cholecystitis 11/06/2007 11/20/2021 documented as of this encounter (statuses as of 02/20/2023)[facility] 01-13-2023 History of Past illness Narrative Problem Noted Date Resolved Date Necrotizing fasciitis 01/13/2023 01/16/2023 Overview:Formatting of this note might b e different from the original. Pt did not have necrotizing fasciitis du ring this current hospitalization. Acute cholecystitis 11/06/2007 11/20/2021 documented as of this encounter (statuses as of 02/21/2023)[facility] 01-13-2023 History of Past illness Narrative Problem Noted Date Resolved Date Necrotizing fasciitis 01/13/2023 01/16/2023 Overview:Formatting of this note might b e different from the original. Pt did not have necrotizing fasciitis du ring this current hospitalization. Acute cholecystitis 11/06/2007 11/20/2021 documented as of this encounter (statuses as of 02/21/2023)[facility] 01-13-2023 History of Past illness Narrative Problem Noted Date Resolved Date Necrotizing fasciitis 01/13/2023 01/16/2023 Overview:Formatting of this note might b e different from the original. Pt did not have necrotizing fasciitis du ring this current hospitalization. Acute cholecystitis 11/06/2007 11/20/2021 documented as of this encounter (statuses as of 02/21/2023)[facility] 01-13-2023 History of Past illness Narrative Problem Noted Date Resolved Date Necrotizing fasciitis 01/13/2023 01/16/2023 Overview:Formatting of this note might b e different from the original. Pt did not have necrotizing fasciitis du ring this current hospitalization. Acute cholecystitis 11/06/2007 11/20/2021 documented as of this encounter (statuses as of 02/24/2023)[facility] 01-13-2023 History of Past illness Narrative Problem Noted Date Resolved Date Necrotizing fasciitis 01/13/2023 01/16/2023 Overview:Formatting of this note might b e different from the original. Pt did not have necrotizing fasciitis du ring this current hospitalization. Acute cholecystitis 11/06/2007 11/20/2021 documented as of this encounter (statuses as of 02/25/2023)[facility] 01-13-2023 History of Past illness Narrative Problem Noted Date Resolved Date Necrotizing fasciitis 01/13/2023 01/16/2023 Overview:Formatting of this note might b e different from the original. Pt did not have necrotizing fasciitis du ring this current hospitalization. Acute cholecystitis 11/06/2007 11/20/2021 documented as of this encounter (statuses as of 02/25/2023)[facility] 01-13-2023 History of Past illness Narrative Problem Noted Date Resolved Date Necrotizing fasciitis 01/13/2023 01/16/2023 Overview:Formatting of this note might b e different from the original. Pt did not have necrotizing fasciitis du ring this current hospitalization. Acute cholecystitis 11/06/2007 11/20/2021 documented as of this encounter (statuses as of 02/26/2023)[facility] 01-13-2023 History of Past illness Narrative Problem Noted Date Resolved Date Necrotizing fasciitis 01/13/2023 01/16/2023 Overview:Formatting of this note might b e different from the original. Pt did not have necrotizing fasciitis du ring this current hospitalization. Acute cholecystitis 11/06/2007 11/20/2021 documented as of this encounter (statuses as of 02/26/2023)[facility] 01-13-2023 Miscellaneous NotesTelephone Encounter - Lula Sarmiento LPN - 01/13/2023 1:04 PM EST Records from [facility] forwarded to Carolee as requested. Telephone Encounter - Sandra Potts LPN - 01/08/2023 4:24 PM EST Discharge summary requested from [facility] medical records at this time. Sandra Potts LPN Telephone Encounter - Irena Bland LPN - 01/06/2023 4:51 PM EST Carolee R with [facility] calls to report that pt was discharged from [facility] on 01/01/23. Carolee is asking for discharge summary to be faxed to her when office receives it. . Irena Bland LPN documented in this encounterKet[facility]02-07-2023 Miscellaneous Notes Telephone Encounter - Lula Sarmiento LPN - 01/07/2023 11:12 AM EST Patient has follow up visit 01/14/23 for 40 min-will see her as Hosp follow up and reschedule RTN follow up. Telephone Encounter - Panfilo Oreilly MD - 12/27/2022 8:01 AM EST Reviewed and agree. When she is finally discharged from [facility], will need f/u in 1 week for 40 minute OV. Telephone Encounter - Christi Barney RN - 12/26/2022 6:54 PM EST [facility] [place] livestock caretaker calling to let PCP know patient is in [facility] ICU with soft tissue infection. This nurse cancelled patient's hospital discharge follow up appointment from 12/20 hospital discharge which was scheduled for 12/27/22 with PCP. Christi Barney, RN documented in this encounterKet[facility]02-06-2023 Miscellaneous Notes Telephone Encounter - Loretta Peres LPN - 01/06/2023 5:01 PM EST Pt given message from Dr Arizmendi, pt has follow up on Friday. Margarita TOWNSEND Telephone Encounter - Loretta Peres LPN - 01/06/2023 3:43 PM EST Debridement of groin wound 12/25/22- pt request refill on percocet for use with dressing changes, packing wound twice a day. uses discount drug in chart. Margarita TOWNSEND documented in this encounterKettering [facility]02-03-2023 Miscellaneous Notes Telephone Encounter - Sandra Potts LPN - 01/03/2023 2:09 PM EST [facility] 11/08/2022 NOV 01/14/2023 Sandra Potts LPN Telephone Encounter - Vanessa Ignacio [facility] - 01/03/2023 8:30 AM EST Patient has been identified by name and date of : Yes Requested Prescriptions Pending Prescriptions Disp Refills metFORMIN ER (GLUCOPHAGE XR) 500 mg 24 hr tablet 360 tablet 3 Sig: Take 4 tablets by mouth every morning. dilTIAZem CD (CARDIZEM CD) 120 mg 24 hr capsule 90 capsule 3 Sig: Take 1 capsule by mouth once daily. metoprolol succinate ER (TOPROL XL) 25 mg 24 hr tablet 90 tablet 3 Sig: Take 1 tablet by mouth once daily. apixaban (ELIQUIS) 5 mg tab(s) 180 tablet 3 Sig: Take 1 tablet by mouth twice daily. loratadine (CLARITIN) 10 mg tablet 90 tablet 3 Sig: Take 1 tablet by mouth once daily. lisinopril (ZESTRIL, PRINIVIL) 10 mg tablet 90 tablet 3 Sig: Take 1 tablet by mouth once daily. fenofibrate nanocrystallized (TRICOR) 145 mg tablet 90 tablet 3 Sig: Take 1 tablet by mouth once daily. atorvastatin (LIPITOR) 80 mg tablet 90 tablet 3 Sig: Take 1 tablet by mouth once daily. RX INSTRUCTIONS: Pharmacy initiated this request. No need to notify patient. [facility] Electronically signed by Vanessa Ignacio [facility] at 01/03/2023 8:40 AM EST documented in this encounterKettering Health [facility]02-02-2023 Miscellaneous Notes Telephone Encounter - CRISTY Fish - 01/02/2023 3:05 PM EST Telephoned the patient regarding missed appt. Unable to reach pt. Voicemail is not set up. Telephone Encounter - Robert Sanchez RPh - 01/02/2023 2:41 PM EST Patient was a no-show for PharmD visit today. Appears she was hospitalized and recently discharged home. Primary Care Pharmacy Rescheduling Outreach Call center, please contact patient and reschedule in person visit for Diabetes management within ~3-8 week(s) (priority is for patient to have hospital f/up visit with PCP first). (Visit length: 30-60minutes) Thank you, Robert Sanchez RPh 01/02/2023 2:42 PM documented in this encounterKettering Health [facility]02-02-2023 [facility] History of Present illness Tommy Crowley RN - 01/02/2023 11:19 AM EST TRANSITIONAL CARE MANAGEMENT (TCM) COMMUNITY MONITORING PROGRAM Provider Action/FYI: [facility] Spoke with patient, states pain is tolerable with pain medication, no sob, no N/V, tolerating diet, drinking fluids, blood glucose this morning was 128, staying with her niece for a week, is doing better. SUMMARY: Pt discharged from [facility] on 01/01/23. Admitted for: Necrotizing soft tissue infection Contact made with patient: Yes Hi my name is Mimi Crowley RN and I am calling from the [facility] on behalf of your PCP, Panfilo Oreilly MD I understand you were recently in the hospital so I am calling to check in with you to ensure you are feeling well now that you're home. May I ask you a few questions related to your hospital stay and well-being? Yes Contact with patient post discharge, spoke to patient. Patient identified by name and . Do you feel your health is BETTER, WORSE, or the SAME since leaving the hospital? Better ACTION TAKEN: Patient indicated symptoms are better or same, no action required. Continue outreach. MEDICATIONS: Many patients have questions or concerns about their medications once they are home. Do you have anyquestions about taking your medications or which medication you should be on? No Do you need any medication refills at this time, including any of the medications you might take only when needed? No ACTION TAKEN: No action required For RNs or Pharmacy completing outreach ONLY, was a medication review completed? Yes SOCIAL: We would like to make sure you have what you need so that your basics needs are met - including yourpersonal safety, food, housing and medications. Would you like to speak with a social work manufacturing team member to help give you support for any of these needs? No It can be normal to feel anxious or down during a time like this. Would you like to talk to a mentalhealth professional about how you have been feeling? No ACTION TAKEN: No action taken DISCHARGE INTRUCTIONS: Your discharge instructions / After Visit Summary (AVS) are important in guiding you through the recovery process. Do you have any questions related to your discharge instructions? No Do you have all the necessary equipment and supplies at home? Yes ACTION TAKEN: No action required I would like to help you schedule a hospital follow-up virtual or telephone visit with your PCP. This is a great way for you to connect with your provider to ensure you have safely transitioned home. If you are agreeable, I will send your request to a maintenance scheduler who will contact and assist you with that appointment. This will give you an opportunity to ask any questions or address any concerns you mayhave with your PCP. Inform the patient that if they have any questions or concerns prior to that appointment, to call their PCP's office right away. ACTION TAKEN: No action required, patient already has an appointment scheduled. Your doctor would like us to remind you of the recommendations regarding the coronavirus (Covid19) outbreak: Avoid public places as much as possible. Avoid close contact (within 6 feet) with others you don t live with, especially if they are sick. Stay home if you are sick. Wash your hands regularly for at least 20 seconds with soap and water. Wear a cloth mask in public places to help reduce community spread. Do not go to your Doctor s office unless instructed to do so. For any non- emergency symptoms, call your Doctor s office to get instructions on how to manage (we might recommend a telephone or virtual visit). For emergency symptoms, proceed to Emergency Department as usual but inform them of cough and fever symptoms TCAO if present (or call on the way if possible). ORACIO Education Ordered -: No TCM Home Visit Referral Source of Stratification: [facility] Hospital Admission Status: Discharged Readmission Risk Score: 37 PAMELA Score: 4 Patient meets program referral criteria: No Patient does not qualify for High Risk TCM Home Visit program due to: Discharged home, does not meetprogram criteria Mimi Crowley RN January 02, 2023 11:25 AM documented in this encounterKettering Health [facility]02-02-2023 History of Present illness Wil Kilpatrick, [facility] - 01/02/2023 10:24 AM EST TRANSITION CARE MANAGEMENT (TCM) PHARMACY CONTACT Provider Action/FYI: TCM Medication Reconciliation partially completed for patient. See medication list table below for details. Medications discussed per patient preference outlined in bold in table below. Initial contact with patient post discharge, spoke to patient, and verified that any applicable caregiver is active in patient's medical care. Patient identified by name and . Summary: -Pt discharged from [facility] on 01/01/23. -Medication review done: Partial medication review completed - per patient preference Patient Concerns: TCM Medication Reconciliation partially completed for patient. See medication list table below for details. Medications discussed per patient preference outlined in bold in table below. History of Present Illness: The following content has been copied and pasted from patient's discharge summary. If discharge summary unavailable, After Visit Summary or last pertinent inpatient notes are copied and pasted. SUMMARY OF WHAT HAPPENED WHILE I WAS IN THE HOSPITAL: Patient was admitted on 12/25/2022 for a necrotizing soft tissue infection on her left inner thigh. Patient was taken to the operating room on 12/26 for soft tissue debridement. A jade drain was left in the wound. Postoperatively, patient was initially cared for in the ICU but was transferred to to a regular floor on 12/31. Patient's wound was cared for with daily wet to dry dressing changes and antibiotics. Patient's jade drain was taken out on 01/01/2023. Patient is felt stable to be discharged home with home physical therapy. Patient is to follow-up outpatient in 2 weeks with general surgery. Medication Reconciliation: Legend: Stopped, New, Changed, Added to list Medication List Medication Directions Comments Action/Plan albuterol (PROVENTIL) 2.5 mg /3 mL (0.083 %) nebulizer solution Use 3 mL via nebulizer every 2 hoursas needed for wheezing/shortness of breath. Use over 5-15minutes. apixaban (ELIQUIS) 5 mg tab(s) Take 1 tablet by mouth twice daily. atorvastatin (LIPITOR) 80 mg tablet Take 1 tablet by mouth once daily. blood sugar diagnostic (BLOOD GLUCOSE TEST) test strip Test blood sugar four times daily diagnosis e11.42 insulin: yes Removed blood sugar diagnostic (FREESTYLE LITE STRIPS) test strip To use 4 times daily to monitor glucose. Dx: uncontrolled type II DM, on insulin Removed blood sugar diagnostic (FREESTYLE PRECISION TABITHA STRIPS) test strip To use 4 times daily to monitor glucose. Dx: uncontrolled type II DM, on insulin freestyle prec tabitha last dispensed 11/29 - 25 d/s Using this in addition to the domenico cholecalciferol, Vitamin D3, (VITAMIN D3) 1,250 mcg (50,000 unit) cap capsule Take 1 capsule by mouth one time a week. For 12 weeks Vitamin D 25 Hydroxy (ng/mL) Date Value 11/11/2022 33.1 12/12/2021 14.4 COMPOUNDED PRESCRIPTION Wedge pillow to be used nightly to elevate head for LOGAN Dx: LOGAN COMPOUNDED PRESCRIPTION Diclo CVLP: Diclofenac 2%, Colchicine 0.01%, Verapamil 5%, Lidocaine 2%, Prilocaine 2% SIG: Apply 1-2 pumps to area of pain BID - QID PRN, massaging in well. Repeat after 10 min. COMPOUNDED PRESCRIPTION Serum Gabaketo LP:Gabapentin 10%, Ketoprofen 10%, Lidocaine 2%, Prilocaine 2% SIG: Apply 2-5 drops to area of pain 2-4 times daily PRN, massaging in well. Repeat after 10 min. Compression Knee Highs KNEE HIGH COMPRESSION STOCKINGS 20-30 MM. DX: EDEMA, lymphedema, venous insufficiency dilTIAZem CD (CARDIZEM CD) 120 mg 24 hr capsule Take 1 capsule by mouth once daily. Discontinued: 01/01/2023 5:20 PM Confirmed Not taking famotidine (PEPCID) 20 mg tablet Take 1 tablet by mouth at bedtime as needed. fenofibrate nanocrystallized (TRICOR) 145 mg tablet Take 1 tablet by mouth once daily. flash glucose scanning reader (CymbetSTYLE DOMENICO 14 DAY READER) 1 Device four times daily. Taking as prescribed without any issues Discontinued: 12/31/2022 1:30 PM flash glucose sensor (FREESTYLE DOMENICO 14 DAY SENSOR) kit 1 Each once daily. Use 1 device for up to 14 days to monitor sugars 4 times per day. LumiFoldoster furosemide (LASIX) 20 mg tablet Take 1 tablet by mouth twice daily. Take BID with 80 mg lasix to equal 100 mg BID furosemide (LASIX) 40 mg tablet Take 1-2 tablets BID for lower extremity edema Discontinued: 12/30/2022 8:05 AM gabapentin (NEURONTIN) 800 mg tablet TAKE 1 TABLET BY MOUTH THREE TIMES A DAY [facility] [place] insulin glargine U-300 conc (TOUJEO MAX U-300 SOLOSTAR) 300 unit/mL (3 mL) inpn Inject 105 Units subcutaneously twice daily. insulin lispro (HUMALOG KWIKPEN INSULIN) 100 unit/mL Inject 50 units plus sliding scale three times daily before meals (Sliding scale: 2 units for every 50 points >150; TDD 150 units) Hemoglobin A1C (%) Date Value 11/11/2022 10.1 12/12/2021 10.0 Insulin Covel, Disposable, (BD ULTRA-FINE GABINO PEN NEEDLE) 32 gauge x 5/32 Inject 1 Each subcutaneously four times daily. use with insulin Lancets lancets Use to check blood sugars four times daily as instructed Denied need a refill - cannot recall name of lancet using lisinopril (ZESTRIL, PRINIVIL) 10 mg tablet Take 1 tablet by mouth once daily. loratadine (CLARITIN) 10 mg tablet Take 1 tablet by mouth once daily. metFORMIN ER (GLUCOPHAGE XR) 500 mg 24 hr tablet Take 4 tablets by mouth every morning. metoprolol succinate ER (TOPROL XL) 25 mg 24 hr tablet Take 1 tablet by mouth once daily. multivitamin tablet Take 1 tablet by mouth once daily. omeprazole (PRILOSEC) 40 mg capsule Take 1 capsule by mouth once daily. Discontinued: 01/01/2023 6:22 PM oxyCODONE IR (ROXICODONE) 5 mg immediate release tablet Take 1 tablet by mouth every 6 hours as needed for pain for up to 5 days. [facility] [place] Counseled on AEs and to monitor for constipation potassium chloride 20 mEq TbER Take 1 tablet by mouth twice daily. Potassium Date Value Ref Range Status 01/01/2023 4.2 3.7 - 5.1 mmol/L Final semaglutide (OZEMPIC) 1 mg/dose (4 mg/3 mL) pen Inject 1 mg subcutaneously one time a week. This REPLACES Trulicity. Shower Chair with Back once daily. Use as directed WALKER ROLLATOR SEAT WITH 6 WHEELS - RED Patient requires large seat Preferred pharmacy: [facility] [place] - [id number] [place] [address] - [address] [phone] [address] [place] [address] e- [facility] [id number] [place] [address] - [address] [facility] - [phone] [address] [facility] [address] [facility] - [place] [address] - [address] - [phone] [address] [place] [address] Estimated Creatinine Clearance: 128.2 mL/min (based on SCr of 0.9 mg/dL). Estimated Glomerular Filtration Rate (mL/min/1.73m ) Date Value 01/01/2023 81 eGFR- (no units) Date Value 01/23/2022 >60 Additional follow up: Next 5 Appointments Date and Time Provider Department Dept Phone 01/02/2023 2:00 PM Robert [facility] [phone] 01/14/2023 11:00 AM Panfilo Oreilly [facility] [phone] Interventions Made: Patient education/Medication counseling Pharmacist Recommendations Made None Care Coordination: None at this time Time spent on patient: 15-30 minutes Brissa Kilpatrick RPh January 02, 2023 10:25 AM [facility]01-31-2023 Miscellaneous Notes Telephone Encounter - Diana Mackenzie STATISTICAL MACHINE MECHANIC - 12/31/2022 1:26 PM EST Patient has been identified by name and date of : Pharmacy phones for refill(s): Requested Prescriptions Pending Prescriptions Disp Refills flash glucose sensor (FREESTYLE DOMENICO 14 DAY SENSOR) kit 2 Each 5 Si Each once daily. Use 1 device for up to 14 days to monitor sugars 4 times per day. Date of last office visit in primary care: 11/08/2022, has appt 01/14/2023 Last 2 Encounter Wt Readings: Date: Wt: 12/25/2022 164.9 kg (363 lb 9.6 oz) 10/18/2022 178.9 kg (394 lb 6.4 oz) Previous labs/tests for medication: Diabetes: Hemoglobin A1C (%) Date Value 11/11/2022 10.1 11/08/2022 9.8 12/12/2021 10.0 08/01/2021 12.8 Please advise. Thank you. Diana Mackenzie LPN documented in this encounterK[facility]01[facility]31-2023 [facility]01-30-2023 [facility]01-29-2023 [facility]01-28-2023 [facility]01-28-2023 NoteHNO ID: [id number] Author: Interface Note Service: ? Author Type: ? Type: Progress Notes Filed: 12/28/2022 4:21 AM Note Text: Epic Scheduled Downtime: 12/28/2022 1:00:00 AM to 12/28/2022 3:56:00 [facility] Miscellaneous NotesTelephone Encounter - Silvino Martinez LPN - 12/27/2022 3:46 PM EST Patient phones requesting refills as follows: Requested Prescriptions Pending Prescriptions Disp Refills gabapentin (NEURONTIN) 800 mg tablet [Pharmacy Med Name: Gabapentin 800MG TABS] 90 tablet 2 Sig: TAKE 1 TABLET BY MOUTH THREE TIMES A DAY Please review and advise. Silvino Martinez LPN documented in this encounterK[facility]01-27-2023 [facility]01-26-2023 [facility]01-26-2023 [facility]01-25-2023 [facility]01-25-2023 [facility]01-25-2023 [facility]01-25-2023 History of Present illness NarrativeDakraig Key APRN.NIKIA - 12/25/2022 2:22 AM EST Images from the original note were not included. Critical Care Transport Note Patient Name: Macario Overton Service Date: 12/25/2022 Referring Physician: Job Accepting Physician: Delfino Referring Facility: [facility] Accepting Facility: [facility] SUBJECTIVE/CHIEF COMPLAINT: left thigh abscess REASON FOR TRANSPORT: Higher level of surgical intervention not available at OSH History of Present Illness: The following history is what was known to CCT team at time of given care and summarized through: referring provider report Macario Overton is a 47 year old female with pertinent past medical history significant for CHF, COPD, HTN, GERD, DM2, LOGAN, and NSTEMI. She presented to [place] ED on 12/25/2022 for evaluation of left thigh and labia drainage. Per report, patient was previously hospitalize with an KERYR but then discharged that week. Today she presented to her primary care which they sent her to ED for possible infection. In the ED, she was found to have air in her subcutaneous fat surrounding her thigh and labia area concerning for gangrene. For this reason, patient will need higher level of surgical intervention notavailable at [place]. At this time, the physician managing the patient requested transfer to [facility] for tertiary and/or quaternary services unavailable at the referring facility. Patient condition at time ofexam was: Acutely ill and emergent surgical intervention. Due to the unique circumstances of the patient, it was determined that this was the closest, most appropriate facility by referring physician. The physician managing the patient requested the [facility] Critical [facility] Team transport and treat the patient for the purpose of tertiary care, evaluation, and management of her surgical condition(s). Air medical transport was requested to reduce the ssw-ws-woijrbau time, 20 minutes by air vs. approximately 45 minutes by ground, with the potential for increased ground transport time secondary to: distance between facilities and ground round transport time would be excessive and detrimental to patient given current clinical status ROS: CONSTITUTIONAL: No fevers, chills, nightsweats, unintended weight loss HEENT: Denies frequent or severe heaches, nasal congestion/sinus symptoms, problematic allergy problems. EYES: No diplopia or blurry vision. CARDIOVASCULAR: No chest pain, dyspnea, palpitations, orthopnea, PND, ankle edema. PULM: No dyspnea, unexplained cough. GI: No dysphagia/odynophagia, problematic reflux, constipation, diarrhea, changes in stool habits, hematochezia, melena. : Purulent drainage from left thigh NEURO: No new balance problems, peripheral weakness/paresthesias or numbness of concern. MUSC-SKEL: No new joint pain, swelling, or erythema. PSY: No concerns regarding depression, anxiety or panic. 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[facility]) 07/2019 Left, small lesion on CT Anxiety Cholecystitis s/p cholecystectomy Diabetes mellitus without mention of complication Diabetic neuropathy ([facility]) Seeing Neurology Diastolic heart failure ([facility]) GERD (gastroesophageal reflux disease) History of abnormal cervical Pap smear History of tobacco use Hyperlipidemia Insomnia Microalbuminuria Morbid obesity ([facility]) Narcotic abuse ([facility]) Non-STEMI (non-ST elevated myocardial infarction) ([facility]) 2/2 respiratory illness LOGAN (obstructive sleep apnea) using CPAP, Dr. Dumont Pulmonary embolism ([facility]) Seasonal allergies Unspecified essential hypertension PAST SURGICAL HISTORY: PAST SURGICAL HISTORY Procedure Laterality Date ANALGESIA,EPIDURAL,LABOR & 1994 INCISION & DRAINAGE ABSCESS COMPLICATED/MULTIPLE 04/07/14 LAPS SURG CHOLECYSTECTOMY W/CHOLANGIOGRAPHY 11/04/2007 PAST SURGICAL HISTORY OF Left 2007 arthroscopic knee surgery PAST SURGICAL HISTORY OF 1995 LEEP ALLERGIES: Flexeril [Cyclobenzaprine Hcl] and Zoloft [Sertraline] SOCIAL HISTORY: Social History Tobacco Use Smoking status: Every Day Packs/day: 0.25 Years: 21.00 Pack years: 5.25 Types: Cigarettes Smokeless tobacco: Never Tobacco comments: d/c x2 wks Vaping Use Vaping Use: Former Substance Use Topics Alcohol use: Yes Alcohol/week: 0.0 standard drinks Comment: rarely Drug use: No FAMILY HISTORY: FAMILY HISTORY Problem Relation Age of Onset Allergies Mother seasonal Arthritis Mother COPD Mother Diabetes Mother Emphysema Mother Headache Mother Obesity Mother Coronary Artery Disease Father Diabetes Father Heart Father Hypertension Father Stroke Father Lipids Father Blood Clots Father Anesthesia Brother Obesity Brother Asthma Brother Headache Brother Coronary Artery Disease Maternal Grandfather Heart Maternal Grandfather Coronary Artery Disease Paternal Grandfather Heart Paternal Grandfather Stroke Paternal Grandfather Osteoporosis Paternal Grandfather Obesity Daughter Asthma Daughter Allergies Child seasonal Arthritis Child Hearing Loss Child Allergies Maternal Aunt Arthritis Maternal Aunt Cancer Maternal Aunt liver, colon, pancreatic Colon Cancer Maternal Aunt Diabetes Maternal Aunt Emphysema Maternal Aunt Hypertension Maternal Aunt Osteoporosis Maternal Aunt Lipids Maternal Aunt Thyroid Maternal Aunt Cancer Maternal Uncle lung Coronary Artery Disease Maternal Uncle Diabetes Maternal Uncle Emphysema Maternal Uncle Heart Maternal Uncle Hypertension Maternal Uncle Seizures Maternal Uncle Lipids Maternal Uncle Diabetes Paternal Aunt Emphysema Paternal Aunt Coronary Artery Disease Paternal Uncle Diabetes Paternal Uncle Emphysema Paternal Uncle Cancer Other cousin Cervical Cancer Other cousins Hearing Loss Other niece Thyroid Other cousins HOME MEDICATIONS: semaglutide (OZEMPIC) 1 mg/dose (4 mg/3 mL) pen^Inject 1 mg subcutaneously one time a week. This REPLACES Trulicity.^Disp: 3 mL^Rfl: 5 furosemide (LASIX) 20 mg tablet^Take 1 tablet by mouth twice daily. Take BID with 80 mg lasix to equal 100 mg BID^Disp: 60 tablet^Rfl: 2 flash glucose scanning reader (CymbetSTYLE DOMENICO 14 DAY READER)^1 Device four times daily.^Disp: 1 Each^Rfl: 0 blood sugar diagnostic (FREESTYLE LITE STRIPS) test strip^To use 4 times daily to monitor glucose. Dx: uncontrolled type II DM, on insulin^Disp: 100 Strip^Rfl: 5 blood sugar diagnostic (FREESTYLE PRECISION TABITHA STRIPS) test strip^To use 4 times daily to monitor glucose. Dx: uncontrolled type II DM, on insulin^Disp: 200 Strip^Rfl: 3 insulin glargine U-300 conc (TOUJEO MAX U-300 SOLOSTAR) 300 unit/mL (3 mL) inpn^Inject 105 Units subcutaneously twice daily.^Disp: 21 mL^Rfl: 5 insulin lispro (HUMALOG KWIKPEN INSULIN) 100 unit/mL^Inject 50 units plus sliding scale three times daily before meals (Sliding scale: 2 units for every 50 points >150; TDD 150 units)^Disp: 15 Each^Rfl: 5 albuterol (PROVENTIL) 2.5 mg /3 mL (0.083 %) nebulizer solution^Use 3 mL via nebulizer every 2 hoursas needed for wheezing/shortness of breath. Use over 5- 15minutes.^Disp: 90 mL^Rfl: 2 gabapentin (NEURONTIN) 800 mg tablet^Take 1 tablet by mouth three times daily for 30 days.^Disp: 90 tablet^Rfl: 2 omeprazole (PRILOSEC) 40 mg capsule^Take 1 capsule by mouth once daily.^Disp: 90 capsule^Rfl: 1 empagliflozin (JARDIANCE) 10 mg tablet^Take 1 tablet by mouth daily with breakfast.^Disp: 30 tablet^Rfl: 5 Insulin Covel, Disposable, (BD ULTRA-FINE GABINO PEN NEEDLE) 32 gauge x /32 ^Inject 1 Each subcutaneously four times daily. use with insulin^Disp: 100 Each^Rfl: 5 metFORMIN ER (GLUCOPHAGE XR) 500 mg 24 hr tablet^Take 4 tablets by mouth every morning.^Disp: 360 tablet^Rfl: 1 apixaban (ELIQUIS) 5 mg tab(s)^Take 1 tablet by mouth twice daily.^Disp: 180 tablet^Rfl: 1 atorvastatin (LIPITOR) 80 mg tablet^Take 1 tablet by mouth once daily.^Disp: 90 tablet^Rfl: 1 blood sugar diagnostic (BLOOD GLUCOSE TEST) test strip^Test blood sugar four times daily diagnosis e11.42 insulin: yes^Disp: 200 Strip^Rfl: 5 dilTIAZem CD (CARDIZEM CD) 120 mg 24 hr capsule^Take 1 capsule by mouth once daily.^Disp: 90 capsule^Rfl: 1 famotidine (PEPCID) 20 mg tablet^Take 1 tablet by mouth at bedtime as needed.^Disp: 30 tablet^Rfl: 5 fenofibrate nanocrystallized (TRICOR) 145 mg tablet^Take 1 tablet by mouth once daily.^Disp: 90 tablet^Rfl: 1 flash glucose sensor (FREESTYLE DOMENICO 14 DAY SENSOR) kit^1 Each once daily. Use 1 device for up to 14 days to monitor sugars 4 times per day.^Disp: 2 Each^Rfl: 5 furosemide (LASIX) 40 mg tablet^Take 1-2 tablets BID for lower extremity edema^Disp: 120 tablet^Rfl:5 lisinopril (ZESTRIL, PRINIVIL) 10 mg tablet^Take 1 tablet by mouth once daily.^Disp: 90 tablet^Rfl: 1 loratadine (CLARITIN) 10 mg tablet^Take 1 tablet by mouth once daily.^Disp: 90 tablet^Rfl: 1 metoprolol succinate ER (TOPROL XL) 25 mg 24 hr tablet^Take 1 tablet by mouth once daily.^Disp: 90 tablet^Rfl: 1 WALKER ROLLATOR SEAT WITH 6 WHEELS - RED^Patient requires large seat^Disp: 1 Each^Rfl: 0 Shower Chair with Back^once daily. Use as directed^Disp: 1 Each^Rfl: 0 Lancets lancets^Use to check blood sugars four times daily as instructed^Disp: 200 Each^Rfl: 3 cholecalciferol, Vitamin D3, (VITAMIN D3) 1,250 mcg (50,000 unit) cap capsule^Take 1 capsule by mouth one time a week. For 12 weeks^Disp: 4 capsule^Rfl: 2 potassium chloride 20 mEq TbER^Take 1 tablet by mouth twice daily.^Disp: ^Rfl: multivitamin tablet^Take 1 tablet by mouth once daily.^Disp: ^Rfl: COMPOUNDED PRESCRIPTION^Serum Gabaketo LP:Gabapentin 10%, Ketoprofen 10%, Lidocaine 2%, Prilocaine 2% SIG: Apply 2-5 drops to area of pain 2-4 times daily PRN, massaging in well. Repeat after 10 min.^Disp: ^Rfl: COMPOUNDED PRESCRIPTION^Diclo CVLP: Diclofenac 2%, Colchicine 0.01%, Verapamil 5%, Lidocaine 2%, Prilocaine 2% SIG: Apply 1-2 pumps to area of pain BID - QID PRN, massaging in well. Repeat after 10 min.^Disp: ^Rfl: Compression Knee Highs^KNEE HIGH COMPRESSION STOCKINGS 20-30 MM. DX: EDEMA, lymphedema, venous insufficiency^Disp: 1 Device^Rfl: 1 COMPOUNDED PRESCRIPTION^Wedge pillow to be used nightly to elevate head for LOGAN Dx: LOGAN^Disp: 1 Device^Rfl: 1 Medications Administered by Referring Facility: Clindamycin Vancomycin Zosyn Dilaudid OBJECTIVE: Recent Labs, Diagnostics & Procedure Reports reviewed as available. Referring Facility Labs CBC: WBC 16.3k, Hgb 10.2, Hct 33.3, Plt 323K CHEMISTRY: Na 134, K 4.6, Cl 102, CO2 26, BUN 28, SCr 1.72, Glu 99 Coags: INR 1.3, PT 15.9, PTT 43.3 Diagnostics & Procedure Reports ECG: sinus tachycardia CT Scan: Per radiology report, Air and stranding in the left inner thigh extending into the left buttock. There is minimal stranding of the subcutaneous fat in the left labia without abscess. Procedure/Operative Report(s): None Invasive Lines/Devices/Tubes Placed by Referring Facility: PIV PHYSICAL EXAM: Upon CCT Arrival at Referring Facility Vital Signs: HR 100bpm, BP 120/74mmHg, RR 22, SpO2 97% Oxygen/Ventilator Settings: 6L General appearance: cooperative, moderate distress, chronically ill, morbidly obese. HEENT: normocephalic, EOMI, PERRL, 4mm brisk bilaterally. Mucous membranes dry Respiratory: mild wheezing and scattered rhonchi throughout. Cardiovascular: S1S2, ST on montior. Gastrointestinal: morbidly obese, soft, moderately distended. Genitourinary: incontinent Musculoskeletal: equal palpable peripheral pulses and normal strength Skin: normal. Heme/Lymph: deferred Neurologic: Awake, alert and oriented x 3, normal speech, Normal sensation Glascow Coma Score: eye response: spontaneous = 4, motor response: obeys commands =6, verbal response: oriented = 5, and GCS Total: 15 CRITICAL CARE COURSE Upon bedside arrival at referring facility the patient was assessed and detailed physical exam performed. Initial exam findings as described above. The patient was placed on the transport monitor and all transport equipment transitioned in standard fashion. Bedside report received from ED RN. Patient receiving antibiotics at this time. On assessment, patient screaming 10/10 pain to right thigh. Patient received dilaudid in the ED several hours prior to our arrival. Will give 50mcg fentanyl IVP givenwith positive results. The patient was transferred to the transport cot and transported to the Aircraft and loaded without incident. The patient was medically managed, monitored, and reassessed during transport. Medications Managed & Administered by CCT: -Fentanyl 50mcg IVP -Continue Vancomycin infusion Procedures Performed by CCT: - none ASSESSMENT/PLAN: Macario Overton is a 47 year old female p/w concern of infection from her primary care physician. CT scan noted subcutaneous air to left thigh and labia concerning for possible gangrene. For this reason she will transfer to [facility] for emergent OR. Gangrene to left thigh and labia Acute pain - p/w purulent drainage to left thigh and labia - recent discharge from hospital for KERRY - CT scan noted subcutaneous air to left thigh and labia concerning for possible gangrene - Received clindamycin, vancomycin and zosyn - received dilaudid for pain - CCT gave 50mcg fentanyl IVP - monitor VS en route - expedite transfer to [place] for further intervention The transport was completed without significant incident or change in the patient's status. The patient was transported to the [facility] by [facility]otor (Helicopter) for tertiary and/or quaternary evaluation and management of her Emergent Surgical condition(s). Upon arrival to the receiving facility, a qahu-qw-gwun report was given to bedside nursing staff in ED and Resident / PA / PRESSURE WELDER: Dr. Kelley . Patient care was transferred. The patient condition was Stable at the time of transfer. Vital Signs at time care transferred to the receiving facility unit: HR 100bpm, Rhythm ST, BP 123/69 mmHg, RR 25, SpO2 94% on 6L SPECIAL EQUIPMENT: None MODE OF TRANSPORT: [facility]otor (Helicopter) CRITICAL CARE TIME: I personally performed 45 minutes of critical care time exclusive of separately billable procedures, ambulance charges and treating other patients. This was necessary to treat or prevent further deterioration of the following condition(s): Gangrene infection which the patient had and/or had a high probability of suddenly developing. SIGNATURE: Jersey Key APRN.NIKIA Acute Care Nurse Practitioner [facility] Critical Care Transport Team documented in this encounterK[facility]01-24-2023 Miscellaneous Notes Telephone Encounter - Lula Sarmiento LPN - 12/24/2022 6:25 PM EST Patient stated she will go to [facility]. PCP updated. Telephone Encounter - Panfilo Oreilly MD - 12/24/2022 6:17 PM EST If she has an abscess, she needs to return to ED have it drained. I would not wait until Friday because she risks worsening infection and sepsis if this is not treated quickly. Telephone Encounter - Lula Sarmiento LPN - 12/24/2022 6:12 PM EST Honed patient to update her of provider's message. She reports her BS is at 99 and she reports she is still a little shaky. Patient says her BS have been running in the 80-90's for the last couple of days. Patient has Hospital follow up scheduled for 12/27/22. Patient also wanted to alert PCP that shehas abscess that has returned in groin area in her folds. She said she had it in the hospital but they didn't do anything with it. Says it's hard with foul smelling drainage. Advised her I would updatePCP and see if she needs an additional appointment to address this. Telephone Encounter - Panfilo Oreilly MD - 12/24/2022 5:19 PM EST Typically we would have her eat or drink something containing carbs such as crackers with cheese, a can of juice, or 4 glucose tablets and recheck sugar in 15 minutes. Repeat if sugar is not above 70. If she does this 3 times and sugar is not above 70, she needs to go to the ED. If she doesn't and hersugar does not improve, she risks diabetic coma or . Telephone Encounter - Tri Sorensen RN - 12/24/2022 4:59 PM EST Patient calling and states she has a Domenico blood glucose monitor and she frequently checks her sugar. She reports her blood sugar is currently 66 and she just ate two bologna sandwiches within the [id number] hour. Ate usual food amounts today. Pt denies any s/sx of any acute illness. She is currently eating some candy and drinking some soda. Sates she feels shaky, but denies any other symptoms of hypoglycemia. Concerned that her sugar is this low-states it is unusual for her. Pt checked blood sugar with home monitor as well and got 67. Pt asking if PCP can advise her or Robert Sanchez [facility]. Explained that message would be sent to Dr. Oreilly for review but will also forward to Robert. Please call pt with advise. Thank you. documented in this encounterK[facility]01-13-2023 Miscellaneous Notes Telephone Encounter - Robertlara Frostronan [facility] - 12/13/2022 9:08 AM EST PharmD returned call to patient. She states she called her insurance but doesn't recall which meds were covered by insurance. States she takes Trulicity 4.5mg on , yesterday was her last dose. She has no more supply remaining. Will plan to order Ozempic 1mg weekly to replace Trulicity 4.5mg weekly (first dose will be next ). Advised patient to contact PCP office if issues getting Ozempic approved. Discussed potentialfor GI side effects and advised to call office if having any issues. Informed her GI side effects can be common but usually go away with time. PharmD f/up already scheduled for 01/02. The following approved medication requests have been transmitted electronically. Requested Prescriptions Signed Prescriptions Disp Refills semaglutide (OZEMPIC) 1 mg/dose (4 mg/3 mL) pen 3 mL 5 Sig: Inject 1 mg subcutaneously one time a week. This REPLACES Trulicity. Authorizing Provider: PANFILO OREILLY Ordering User: ROBERT SANCHEZ [facility] Telephone Encounter - Christi Barney RN - 12/12/2022 2:00 PM EST Patient calling to let provider know Trulicity is on backorder and she has been having trouble getting it for the last three months. She was told by pharmacy that alternative medications are: Victoza, Wegovia, Bydureon or Mounjaro. Advised patient to check with her insurance to find out which is covered. She will call back and let us know. Christi Barney RN documented in this encounterKettering [facility]01-12-2023 Miscellaneous Notes Telephone Encounter - Irina Christie - 12/12/2022 9:42 AM EST Patient has been identified by name and date of : Yes Last office visit in this department: 11/08/2022 Labs-11/11/22 NOV-01/14/23 med filled 07/09/22 RX INSTRUCTIONS: Patient aware RX will be sent to pharmacy. No need to notify patient. Patient phones requesting refills as follows: Requested Prescriptions Pending Prescriptions Disp Refills furosemide (LASIX) 20 mg tablet 60 tablet 2 Sig: Take 1 tablet by mouth twice daily. Take BID with 80 mg lasix to equal 100 mg BID Please review and advise. Irina Soriano documented in this encounterKettering [facility]01-05-2023 Miscellaneous Notes Telephone Encounter - Robert Sanchez RPh - 12/05/2022 11:32 AM EST Patient no-showed to PharmD visit this morning at 11 AM. Called patient, she was home and forgot about appt. Rescheduled appt for early January. States she does not have Freestyle Domenico 14 day reader, she lost it. Can't find it. Has a glucometerbut not testing. Glucometer is white, she can't find it right now. Rescheduled appt for 01/02. Will reorder reader but informed patient insurance would likely not cover another reader since usually an order is accepted every 3 years. Advised her to locate her current glucometer and call office back with exact name/brand so I can order test strips accordingly. She agreed to do so. Will send strips to [facility] at her request. Robert Sanchez PharmD, [facility] Primary Care Clinical Pharmacist documented in this encounterKettering Health [facility] Center12-28-2022 Miscellaneous Notes Telephone Encounter - Annie Neville - 11/27/2022 5:00 PM EST PATIENT REPORTS THAT HER DOMENICO HAS FALLEN OUT OF HER ARM Patient has been identified by name and date of : Yes, Provider OZZY Patient phones for refill(s): Requested Prescriptions Pending Prescriptions Disp Refills blood sugar diagnostic (FREESTYLE PRECISION TABITHA STRIPS) test strip 200 Strip 3 Sig: To use 4 times daily to monitor glucose. Dx: uncontrolled type II DM, on insulin Date of last office visit in primary care: 11/08/22 Labs-11/11/22 NOV-01/14/23 Last 2 Encounter Wt Readings: Date: Wt: 10/18/2022 178.9 kg (394 lb 6.4 oz) 07/23/2022 176.4 kg (389 lb) Previous labs/tests for medication: Not applicable Please advise. Thank you. Annie Neville documented in this encounterKettering Health [facility] Center12-12-2022 Miscellaneous Notes Telephone Encounter - Mariam Meredith RN - 11/11/2022 4:30 PM EST Patient returned call and given provider's message below with verbalized understanding. Telephone Encounter - Alanna Michael RN - 11/11/2022 4:16 PM EST Pt does not have a voicemail set up will have to call back later. Telephone Encounter - Panfilo Oreilly MD - 11/11/2022 3:16 PM EST Repeat kidney function has improved, but is still down compared to her normal. I do not think she needs to go into the hopsital for IV hydration or monitoring. Would have her cut her lasix down to 40 mg BID for the next 3 days, then restart back at 80 mg BID. Should avoid NSAIDs completely. Gently increase her water intake so her urine is light yellow in color, but she is not getting new swelling in her legs. Recheck kidney function in 1 week. Telephone Encounter - Lula Sarmiento LPN - 11/11/2022 12:37 PM EST Phoned patient and updated her with provider's message. She voiced understanding and stated she would try to find a ride so she can get in to lab today. Telephone Encounter - Lula Sarmiento LPN - 11/11/2022 8:47 AM EST Attempted to call patient and there was no answer and message stated her VM hasn't been set up yet. Will attempt call back. Telephone Encounter - Panfilo Oreilly MD - 11/11/2022 8:40 AM EST Patient's kidney function has dropped significantly on her most recent labs and is likely from her high dose of lasix BID. We advised her to reduce her dose over the weekend and increase her fluid intake to maintain hydration. I would recommend she return for STAT CMP today so we can see if this is improving. If worsening, she may need to go back to the hospital for IV hydration and monitoring to make sure her function returns to normal. documented in this encounterKettering Health [facility] Center12-09-2022 NoteC[facility]innati [facility]12-09-2022 History of Present illness NarrativeChristopher Dorys Oreilly MD - 11/08/2022 11:40 AM EST Chief Complaint Patient presents with: Recheck: 4 week follow up HPI Macario Overton is a 47 year old female who presents here today for Above Complaints. Noted patient was back in the ED on 11/01 for strep throat and reactive airway disease. Treated with IV solumedrol while in the ED and sent home with prednisone burst for 5 days and augmentin x10 days. States she finished prednisone burst and is able breathe easier and has cough productive with brownish sputum. Still on Augmentin which has resolved her sore throat. Denies fever/chills, lymphadenopathy, nasal congestion, rhinorrhea, wheezing. Noted that she had not been using her CPAP when she spoke to the ED physician. Has been using her CPAP and oxygen at night while sitting in her recliner. Requesting hospital bed and scooter to help herget around. Complaining of tremor/twitching in her arms and legs which has been going on for several months. States that she constantly drops drinks out of her hands. Termor gets worse when she holds her arms out for prolonged period of time. Recent bloodwork to evaluate for electrolyte abnormalities normal. Has not seen neurology or had EEG to workup. Feeling lightheaded occasionally for the last week without syncope. Did not urinate much yesterday even with her diuretics. Drinking 8 glasses of water per day and chews on ice regularly. Weight is down 16 lbs from last check. DM: Denies low sugars on her current regimen. States that her sugar this morning was 216. Taking medications as prescribed without hypoglycemia. A1c not drawn with other labs for some reason, will reorder today. Past medical history, appointments, medications, allergies reviewed. Previous Medical History PAST MEDICAL HISTORY Diagnosis Date Abscess of right groin 04/07/2014 Acute diastolic heart failure (HCC) 01/2022 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[facility]) 07/2019 Left, small lesion on CT Anxiety Cholecystitis s/p cholecystectomy Diabetes mellitus without mention of complication Diabetic neuropathy ([facility]) Seeing Neurology Diastolic heart failure ([facility]) GERD (gastroesophageal reflux disease) History of abnormal cervical Pap smear History of tobacco use Hyperlipidemia Insomnia Microalbuminuria Morbid obesity ([facility]) Narcotic abuse ([facility]) Non-STEMI (non-ST elevated myocardial infarction) ([facility]) 2/2 respiratory illness LOGAN (obstructive sleep apnea) using CPAP, Dr. Dumont Pulmonary embolism ([facility]) Seasonal allergies Unspecified essential hypertension Previous Surgical History PAST SURGICAL HISTORY Procedure Laterality Date ANALGESIA,EPIDURAL,LABOR & 1994 INCISION & DRAINAGE ABSCESS COMPLICATED/MULTIPLE 04/07/14 LAPS SURG CHOLECYSTECTOMY W/CHOLANGIOGRAPHY 11/04/2007 PAST SURGICAL HISTORY OF Left 2007 arthroscopic knee surgery PAST SURGICAL HISTORY OF 1995 LEEP Family History FAMILY HISTORY Problem Relation Age of Onset Allergies Mother seasonal Arthritis Mother COPD Mother Diabetes Mother Emphysema Mother Headache Mother Obesity Mother Coronary Artery Disease Father Diabetes Father Heart Father Hypertension Father Stroke Father Lipids Father Blood Clots Father Anesthesia Brother Obesity Brother Asthma Brother Headache Brother Coronary Artery Disease Maternal Grandfather Heart Maternal Grandfather Coronary Artery Disease Paternal Grandfather Heart Paternal Grandfather Stroke Paternal Grandfather Osteoporosis Paternal Grandfather Obesity Daughter Asthma Daughter Allergies Child seasonal Arthritis Child Hearing Loss Child Allergies Maternal Aunt Arthritis Maternal Aunt Cancer Maternal Aunt liver, colon, pancreatic Colon Cancer Maternal Aunt Diabetes Maternal Aunt Emphysema Maternal Aunt Hypertension Maternal Aunt Osteoporosis Maternal Aunt Lipids Maternal Aunt Thyroid Maternal Aunt Cancer Maternal Uncle lung Coronary Artery Disease Maternal Uncle Diabetes Maternal Uncle Emphysema Maternal Uncle Heart Maternal Uncle Hypertension Maternal Uncle Seizures Maternal Uncle Lipids Maternal Uncle Diabetes Paternal Aunt Emphysema Paternal Aunt Coronary Artery Disease Paternal Uncle Diabetes Paternal Uncle Emphysema Paternal Uncle Cancer Other cousin Cervical Cancer Other cousins Hearing Loss Other niece Thyroid Other cousins Patient Allergies ALLERGIES Allergen Reactions Flexeril [Cyclobenz* Hives Zoloft [Sertraline] Vomiting Current Medications Current Outpatient Medications on File Prior to Visit Medication Sig insulin glargine U-300 conc (TOUJEO MAX U-300 SOLOSTAR) 300 unit/mL (3 mL) inpn Inject 105 Units subcutaneously twice daily. insulin lispro (HUMALOG KWIKPEN INSULIN) 100 unit/mL Inject 50 units plus sliding scale three times daily before meals (Sliding scale: 2 units for every 50 points >150; TDD 150 units) albuterol (PROVENTIL) 2.5 mg /3 mL (0.083 %) nebulizer solution Use 3 mL via nebulizer every 2 hoursas needed for wheezing/shortness of breath. Use over 5-15minutes. furosemide (LASIX) 20 mg tablet Take 1 tablet by mouth twice daily. Take BID with 80 mg lasix to equal 100 mg BID Nicotine Polacrilex [address] 1 Lozenge between cheek and gum as needed. gabapentin (NEURONTIN) 800 mg tablet Take 1 tablet by mouth three times daily for 30 days. dulaglutide (TRULICITY) 4.5 mg/0.5 mL pen injector Inject 4.5 mg subcutaneously one time a week. omeprazole (PRILOSEC) 40 mg capsule Take 1 capsule by mouth once daily. empagliflozin (JARDIANCE) 10 mg tablet Take 1 tablet by mouth daily with breakfast. Insulin Covel, Disposable, (BD ULTRA-FINE GABINO PEN NEEDLE) 32 gauge x 5/32 Inject 1 Each subcutaneously four times daily. use with insulin metFORMIN ER (GLUCOPHAGE XR) 500 mg 24 hr tablet Take 4 tablets by mouth every morning. apixaban (ELIQUIS) 5 mg tab(s) Take 1 tablet by mouth twice daily. atorvastatin (LIPITOR) 80 mg tablet Take 1 tablet by mouth once daily. blood sugar diagnostic (BLOOD GLUCOSE TEST) test strip Test blood sugar four times daily diagnosis e11.42 insulin: yes blood sugar diagnostic (FREESTYLE PRECISION TABITHA STRIPS) test strip To use 4 times daily to monitor glucose. Dx: uncontrolled type II DM, on insulin dilTIAZem CD (CARDIZEM CD) 120 mg 24 hr capsule Take 1 capsule by mouth once daily. famotidine (PEPCID) 20 mg tablet Take 1 tablet by mouth at bedtime as needed. flash glucose scanning reader (CymbetSTYLE DOMENICO 14 DAY READER) 1 Device four times daily. fenofibrate nanocrystallized (TRICOR) 145 mg tablet Take 1 tablet by mouth once daily. flash glucose sensor (CymbetSTYLE DOMENICO 14 DAY SENSOR) kit 1 Each once daily. Use 1 device for up to 14 days to monitor sugars 4 times per day. furosemide (LASIX) 40 mg tablet Take 1-2 tablets BID for lower extremity edema lisinopril (ZESTRIL, PRINIVIL) 10 mg tablet Take 1 tablet by mouth once daily. loratadine (CLARITIN) 10 mg tablet Take 1 tablet by mouth once daily. metoprolol succinate ER (TOPROL XL) 25 mg 24 hr tablet Take 1 tablet by mouth once daily. WALKER ROLLATOR SEAT WITH 6 WHEELS - RED Patient requires large seat Shower Chair with Back once daily. Use as directed Lancets lancets Use to check blood sugars four times daily as instructed cholecalciferol, Vitamin D3, (VITAMIN D3) 1,250 mcg (50,000 unit) cap capsule Take 1 capsule by mouth one time a week. For 12 weeks potassium chloride 20 mEq TbER Take 1 tablet by mouth twice daily. multivitamin tablet Take 1 tablet by mouth once daily. COMPOUNDED PRESCRIPTION Serum Gabaketo LP:Gabapentin 10%, Ketoprofen 10%, Lidocaine 2%, Prilocaine 2% SIG: Apply 2-5 drops to area of pain 2-4 times daily PRN, massaging in well. Repeat after 10 min. COMPOUNDED PRESCRIPTION Diclo CVLP: Diclofenac 2%, Colchicine 0.01%, Verapamil 5%, Lidocaine 2%, Prilocaine 2% SIG: Apply 1-2 pumps to area of pain BID - QID PRN, massaging in well. Repeat after 10 min. Compression Knee Highs KNEE HIGH COMPRESSION STOCKINGS 20-30 MM. DX: EDEMA, lymphedema, venous insufficiency COMPOUNDED PRESCRIPTION Wedge pillow to be used nightly to elevate head for LOGAN Dx: LOGAN Current Facility-Administered Medications on File Prior to Visit Medication perflutren lipid microspheres 1.3 mL in NaCl (PF) 0.9% 10 mL injection (DEFINITY) sodium chloride 0.9 % (flush) 10 mL (BD POSIFLUSH) perflutren lipid microspheres 1.3 mL in NaCl (PF) 0.9% 10 mL injection (DEFINITY) sodium chloride 0.9 % (flush) 10 mL (BD POSIFLUSH) Social History Social History Tobacco Use Smoking status: Every Day Packs/day: 0.25 Years: 21.00 Pack years: 5.25 Types: Cigarettes Smokeless tobacco: Never Tobacco comments: d/c x2 wks Vaping Use Vaping Use: Former Substance Use Topics Alcohol use: Yes Alcohol/week: 0.0 standard drinks Comment: rarely Drug use: No Review of Symptoms REVIEW OF SYSTEMS GENERAL: No weight loss, malaise or fevers RESPIRATORY: See HPI CARDIOVASCULAR: Negative for chest pain, leg swelling, hypertension, CHF or palpitations GI: No nausea, vomiting, or diarrhea SKIN: Negative for lesions, rash, and itching EXAM: BP (P) 119/68 (BP Site: Left Arm, BP Position: Sitting, BP Cuff Size: Regular Adult) Pulse (P) 99 Resp (P) 18 Wt (!) (P) 172.4 kg (380 lb) LMP 10/10/2016 SpO2 (P) 95% BMI (P) 62.27 kg/m General Appearance: Well appearing, alert, in no acute distress, well-hydrated, well nourished.. Skin: Skin color, texture, turgor normal, no suspicious rashes or lesions. Oropharynx: Positive findings: mild oropharyngeal erythema, dry mucous membranes. Lungs: decreased lung sounds bilaterally due to habitus. No wheezing, rhonchi, rales.. Heart: RRR without murmur, gallop, or rubs. No ectopy. Abdomen: Normal abdominal exam, Abdomen soft, non-tender. Bowel sounds normal. No masses, organomegaly. Extremities: Abel wraps in place per podiatry. No edema. Health Maintenance List HEPATITIS B(1 of 3 - 3-dose series) Never done DILATED RETINAL EXAM Never done MAMMOGRAM due on 10/09/2018 DEPRESSION ASSESSMENT Never done COVID-19 VACCINE(3 - Booster for Damir series) due on 03/15/2022 COLORECTAL CANCER SCREENING Never done HBA1C due on 10/09/2022 PAP TESTING due on 04/30/2023 HPV TESTING due on 04/30/2023 LDL CHOLESTEROL due on 12/12/2022 URINE ALBUMIN:CREATININE RATIO due on 07/09/2023 DIABETIC FOOT EXAM due on 07/09/2023 ANNUAL PCP TEAM CHRONIC DISEASE VISIT due on 10/18/2023 BP CONTROLLED (<130/80) due on 10/18/2023 DTAP,TDAP,TD(2 - Td or Tdap) due on 07/01/2027 PNEUMOCOCCAL(3 - PPSV23 if available, else PCV20) due on 2042 INFLUENZA Completed HEPATITIS C SCREENING Completed HIV SCREENING Completed Data reviewed Component Latest Ref Rng & Units 07/09/2022 10/18/2022 WBC 3.70 - 11.00 k/uL 8.83 RBC 3.90 - 5.20 m/uL 4.66 Hemoglobin 11.5 - 15.5 g/dL 12.9 Hematocrit 36.0 - 46.0 % 43.7 MCV 80.0 - 100.0 fL 93.8 MCH 26.0 - 34.0 pg 27.7 MCHC 30.5 - 36.0 g/dL 29.5 (L) RDW-CV 11.5 - 15.0 % 17.0 (H) Platelet Count 150 - 400 k/uL 188 MPV 9.0 - 12.7 fL 9.8 Neut% % 73.6 Abs Neut (ANC) 1.45 - 7.50 k/uL 6.50 Lymph% % 17.8 Abs Lymph 1.00 - 4.00 k/uL 1.57 Burnet% % 4.3 Abs Burnet <0.87 k/uL 0.38 Eosin% % 2.8 Abs Eosin <0.46 k/uL 0.25 Baso% % 0.6 Abs Baso <0.11 k/uL 0.05 Immature Gran % % 0.9 IMMATURE GRANS (ABS) <0.10 k/uL 0.08 NRBC /100 WBC 0.0 Absolute nRBC <0.01 k/uL <0.01 DTYPE Auto Protein, Total 6.3 - 8.0 g/dL 7.3 7.4 Albumin 3.9 - 4.9 g/dL 4.1 4.2 Calcium 8.5 - 10.2 mg/dL 10.5 (H) 10.2 Bilirubin, Total 0.2 - 1.3 mg/dL 0.3 0.2 Alkaline Phosphatase 34 - 123 U/L 58 68 AST 13 - 35 U/L 38 (H) 33 ALT 7 - 38 U/L 30 24 Glucose 74 - 99 mg/dL 165 (H) 180 (H) BUN 7 - 21 mg/dL 11 22 (H) Creatinine 0.58 - 0.96 mg/dL 0.73 0.95 Sodium 136 - 144 mmol/L 138 140 Potassium 3.7 - 5.1 mmol/L 4.6 4.3 Chloride 97 - 105 mmol/L 93 (L) 91 (L) CO2 22 - 30 mmol/L 33 (H) 39 (H) Anion Gap 9 - 18 mmol/L 12 10 eGFR >=60 mL/min/1.73m 104 75 Creatinine, Ur Random (UCRR) 20.0 - 300.0 mg/dL 31.5 Albumin, Urine Random mg/L 20.0 Albumin/Creat Ratio <30 mg/g 63 (H) Hemoglobin A1C 4.3 - 5.6 % 9.7 (H) Estimated Average Glucose mg/dL 232 NT Pro BNP <125 pg/mL 55 Magnesium 1.7 - 2.3 mg/dL 2.0 Phosphorus 2.7 - 4.8 mg/dL 3.4 TSH 0.270 - 4.200 mIU/L 4.130 ASSESSMENT/PLAN: 1. Strep pharyngitis - ICD9: 034.0, ICD10: J02.0 (primary diagnosis) Symptoms resolved with abx. Finish out abx and call if symptoms return. 2. Reactive airway disease with acute exacerbation, unspecified asthma severity, unspecified whetherpersistent - ICD9: 493.92, ICD10: J45.901 Improved after prednisone burst. Patient is on 4 L oxygen via NC continuously. 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 3. Tremor - ICD9: 781.0, ICD10: R25.1 Unknown cause for her tremor. Exacerbated with activity. Will obtain EEG and refer to neurology. Previous electrolytes, mag and phos, were normal when evaluating potential cause. Recheck CMP today. Redflags for re-assessment reviewed with patient in detail. - SEAT DEPTH 17-18 MOTORIZED CHAIR - CONSULT TO NEUROLOGY - EPIL EEG ROUTINE 4. LOGAN treated with BiPAP - ICD9: 327.23, ICD10: G47.33 Needs to continue bipap with oxygen on a nightly basis. 5. Morbid obesity (HCC) - ICD9: 278.01, ICD10: E66.01 Weight decreasing - Behavioral intervention - HD HOSP BED, 350-600 LBS - SEAT DEPTH 17-18 MOTORIZED CHAIR 6. Type 2 diabetes mellitus with diabetic polyneuropathy, with long-term current use of insulin (HCC) - ICD9: 250.60, 357.2, V58.67, ICD10: E11.42, Z79.4 Will obtain labs and call with results. Continue on current regimen. Work on low carb diet. Unable to exercise regularly due to need for oxygen and morbid obesity BMI >60. - HGB A1C - COMP METABOLIC PANEL 7. Episodic lightheadedness - ICD9: 780.4, ICD10: R42 Suspect dehydration from taking 100 mg of Lasix BID. Advised her to reduce dose back to 80 mg BID over the weekend and gently hydrate. Recheck CMP to monitor renal function. Red flags for re-assessmentreviewed with patient in detail. - COMP METABOLIC PANEL 8. Dehydration - ICD9: 276.51, ICD10: E86.0 See above. I spent a total of 45 minutes on the date of the service which included preparing to see the patient, [id number] patient care, completing clinical documentation, obtaining and/or reviewing separatelyobtained history, performing a medically appropriate examination, counseling and educating the patien t/family/caregiver, and ordering medications, tests, or procedures. Panfilo Oreilly MD documented in this encounterKettering [facility] Center12-07-2022 NoteC[facility]12-07-2022 NoteC[facility]12-07-2022 NoteC[facility]12-07-2022 History of Present illness Tito Yoder RN - 11/06/2022 11:58 AM EST Patient's wound dressed with Bacitracin, adaptic, gauze and abel wrap at this time per Dr. Mosley. Wound care reviewed with patient, no questions at this time. Anita Mosley - 11/06/2022 11:24 AM EST Images from the original note were not included. Subjective: This 47 year old female presents to clinic for diabetic foot check. Patient has the following complaints: painful toenails. Patient states that she has hard time getting down to take care of her toes Patient admits to being diabetic for 27 years now. Patient +B/T/N in feet at this time. Patient -pain in legs when walking. No other pedal complaints at this time. No change in medications or medical history since last visit. PAIN EVALUATION 11/06/2022 1059 Pain Level: 9 Pain Location: Other: See Comment bilateral Description: Sharp;Dull;Burning;Aching;Sore Duration Amount of Time: 2 Duration Units: Years Frequency: Intermittent Intervention/Comfort measure: Reposition;Relaxation;Medication Hemoglobin A1C (%) Date Value 07/09/2022 9.7 03/19/2022 10.8 12/12/2021 10.0 08/01/2021 12.8 02/14/2021 13.4 11/11/2019 8.9 03/23/2019 9.2 Hemoglobin A1C (POCT) (%) Date Value 08/09/2019 9.7 PCP: Panfilo Oreilly MD PAST MEDICAL HISTORY Diagnosis Date Abscess of right groin 04/07/2014 Acute diastolic heart failure (HCC) 01/2022 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[facility]) 07/2019 Left, small lesion on CT Anxiety Cholecystitis s/p cholecystectomy Diabetes mellitus without mention of complication Diabetic neuropathy ([facility]) Seeing Neurology Diastolic heart failure ([facility]) GERD (gastroesophageal reflux disease) History of abnormal cervical Pap smear History of tobacco use Hyperlipidemia Insomnia Microalbuminuria Morbid obesity ([facility]) Narcotic abuse ([facility]) Non-STEMI (non-ST elevated myocardial infarction) ([facility]) 2/2 respiratory illness LOGAN (obstructive sleep apnea) using CPAP, Dr. Dumont Pulmonary embolism ([facility]) Seasonal allergies Unspecified essential hypertension Current Outpatient Medications Medication Sig insulin glargine U-300 conc (TOUJEO MAX U-300 SOLOSTAR) 300 unit/mL (3 mL) inpn Inject 105 Units subcutaneously twice daily. insulin lispro (HUMALOG KWIKPEN INSULIN) 100 unit/mL Inject 50 units plus sliding scale three times daily before meals (Sliding scale: 2 units for every 50 points >150; TDD 150 units) albuterol (PROVENTIL) 2.5 mg /3 mL (0.083 %) nebulizer solution Use 3 mL via nebulizer every 2 hoursas needed for wheezing/shortness of breath. Use over 5-15minutes. furosemide (LASIX) 20 mg tablet Take 1 tablet by mouth twice daily. Take BID with 80 mg lasix to equal 100 mg BID Nicotine Polacrilex [address] 1 Lozenge between cheek and gum as needed. dulaglutide (TRULICITY) 4.5 mg/0.5 mL pen injector Inject 4.5 mg subcutaneously one time a week. omeprazole (PRILOSEC) 40 mg capsule Take 1 capsule by mouth once daily. empagliflozin (JARDIANCE) 10 mg tablet Take 1 tablet by mouth daily with breakfast. Insulin Covel, Disposable, (BD ULTRA-FINE GABINO PEN NEEDLE) 32 gauge x 5/32 Inject 1 Each subcutaneously four times daily. use with insulin metFORMIN ER (GLUCOPHAGE XR) 500 mg 24 hr tablet Take 4 tablets by mouth every morning. apixaban (ELIQUIS) 5 mg tab(s) Take 1 tablet by mouth twice daily. atorvastatin (LIPITOR) 80 mg tablet Take 1 tablet by mouth once daily. blood sugar diagnostic (BLOOD GLUCOSE TEST) test strip Test blood sugar four times daily diagnosis e11.42 insulin: yes blood sugar diagnostic (FREESTYLE PRECISION TABITHA STRIPS) test strip To use 4 times daily to monitor glucose. Dx: uncontrolled type II DM, on insulin dilTIAZem CD (CARDIZEM CD) 120 mg 24 hr capsule Take 1 capsule by mouth once daily. famotidine (PEPCID) 20 mg tablet Take 1 tablet by mouth at bedtime as needed. flash glucose scanning reader (CymbetSTYLE DOMENICO 14 DAY READER) 1 Device four times daily. fenofibrate nanocrystallized (TRICOR) 145 mg tablet Take 1 tablet by mouth once daily. flash glucose sensor (FREESTYLE DOMENICO 14 DAY SENSOR) kit 1 Each once daily. Use 1 device for up to 14 days to monitor sugars 4 times per day. lisinopril (ZESTRIL, PRINIVIL) 10 mg tablet Take 1 tablet by mouth once daily. loratadine (CLARITIN) 10 mg tablet Take 1 tablet by mouth once daily. metoprolol succinate ER (TOPROL XL) 25 mg 24 hr tablet Take 1 tablet by mouth once daily. WALKER ROLLATOR SEAT WITH 6 WHEELS - RED Patient requires large seat Shower Chair with Back once daily. Use as directed Lancets lancets Use to check blood sugars four times daily as instructed potassium chloride 20 mEq TbER Take 1 tablet by mouth twice daily. multivitamin tablet Take 1 tablet by mouth once daily. COMPOUNDED PRESCRIPTION Serum Gabaketo LP:Gabapentin 10%, Ketoprofen 10%, Lidocaine 2%, Prilocaine 2% SIG: Apply 2-5 drops to area of pain 2-4 times daily PRN, massaging in well. Repeat after 10 min. COMPOUNDED PRESCRIPTION Diclo CVLP: Diclofenac 2%, Colchicine 0.01%, Verapamil 5%, Lidocaine 2%, Prilocaine 2% SIG: Apply 1-2 pumps to area of pain BID - QID PRN, massaging in well. Repeat after 10 min. Compression Knee Highs KNEE HIGH COMPRESSION STOCKINGS 20-30 MM. DX: EDEMA, lymphedema, venous insufficiency COMPOUNDED PRESCRIPTION Wedge pillow to be used nightly to elevate head for LOGAN Dx: LOGAN gabapentin (NEURONTIN) 800 mg tablet Take 1 tablet by mouth three times daily for 30 days. furosemide (LASIX) 40 mg tablet Take 1-2 tablets BID for lower extremity edema (Patient not taking: Reported on 11/06/2022) cholecalciferol, Vitamin D3, (VITAMIN D3) 1,250 mcg (50,000 unit) cap capsule Take 1 capsule by mouth one time a week. For 12 weeks Current Facility-Administered Medications Medication Dose Route Frequency perflutren lipid microspheres 1.3 mL in NaCl (PF) 0.9% 10 mL injection (DEFINITY) INTRAVENOUS DIRECTED PRN sodium chloride 0.9 % (flush) 10 mL (BD POSIFLUSH) 10 mL INTRAVENOUS DIRECTED PRN perflutren lipid microspheres 1.3 mL in NaCl (PF) 0.9% 10 mL injection (DEFINITY) INTRAVENOUS DIRECTED PRN sodium chloride 0.9 % (flush) 10 mL (BD POSIFLUSH) 10 mL INTRAVENOUS DIRECTED PRN ALLERGIES Allergen Reactions Flexeril [Cyclobenz* Hives Zoloft [Sertraline] Vomiting PAST SURGICAL HISTORY Procedure Laterality Date ANALGESIA,EPIDURAL,LABOR & 1994 INCISION & DRAINAGE ABSCESS COMPLICATED/MULTIPLE 04/07/14 LAPS SURG CHOLECYSTECTOMY W/CHOLANGIOGRAPHY 11/04/2007 PAST SURGICAL HISTORY OF Left 2007 arthroscopic knee surgery PAST SURGICAL HISTORY OF 1995 LEEP FAMILY HISTORY Problem Relation Age of Onset Allergies Mother seasonal Arthritis Mother COPD Mother Diabetes Mother Emphysema Mother Headache Mother Obesity Mother Coronary Artery Disease Father Diabetes Father Heart Father Hypertension Father Stroke Father Lipids Father Blood Clots Father Anesthesia Brother Obesity Brother Asthma Brother Headache Brother Coronary Artery Disease Maternal Grandfather Heart Maternal Grandfather Coronary Artery Disease Paternal Grandfather Heart Paternal Grandfather Stroke Paternal Grandfather Osteoporosis Paternal Grandfather Obesity Daughter Asthma Daughter Allergies Child seasonal Arthritis Child Hearing Loss Child Allergies Maternal Aunt Arthritis Maternal Aunt Cancer Maternal Aunt liver, colon, pancreatic Colon Cancer Maternal Aunt Diabetes Maternal Aunt Emphysema Maternal Aunt Hypertension Maternal Aunt Osteoporosis Maternal Aunt Lipids Maternal Aunt Thyroid Maternal Aunt Cancer Maternal Uncle lung Coronary Artery Disease Maternal Uncle Diabetes Maternal Uncle Emphysema Maternal Uncle Heart Maternal Uncle Hypertension Maternal Uncle Seizures Maternal Uncle Lipids Maternal Uncle Diabetes Paternal Aunt Emphysema Paternal Aunt Coronary Artery Disease Paternal Uncle Diabetes Paternal Uncle Emphysema Paternal Uncle Cancer Other cousin Cervical Cancer Other cousins Hearing Loss Other niece Thyroid Other cousins Social History Tobacco Use Smoking status: Every Day Packs/day: 0.25 Years: 21.00 Pack years: 5.25 Types: Cigarettes Smokeless tobacco: Never Tobacco comments: d/c x2 wks Vaping Use Vaping Use: Former Substance Use Topics Alcohol use: Yes Alcohol/week: 0.0 standard drinks Comment: rarely Drug use: No REVIEW OF SYSTEMS GENERAL: Negative for Malaise, significant weight loss, fever RESPIRATORY: Negative for cough, wheezing and shortness of breath CARDIOVASCULAR: Negative for chest pain, leg swelling and palpitations GI: Negative for abdominal discomfort, blood in stools or black stools and change in bowel habits : Negative for dysuria, frequency and incontinence MUSCULOSKELETAL: Negative for joint pain or swelling, back pain, and muscle pain. SKIN: Negative for lesions, rash, and itching. HEMATOLOGY/LYMPHOLOGY Negative for prolonged bleeding, bruising easily, and swollen nodes. ENDOCRINE: Negative for cold or heat intolerance, polyuria, polydipsia and goiter. NEURO: negative The remainder of the review of systems is noncontributory. Objective: Patient presents to clinic ambulating in [facility] Constitutional: Pt is a well developed 47 year old female who is alert, oriented, cooperative and inno apparent distress. Eyes: Following during examination. No redness or drainage. Respiratory: RR normal and nonlabored. Even breathing. No evidence of distress. Psychology: Patient is engaged during conversation. Normal affect and mood. Does not appear depressed or anxious. Vasc: DP and PT pulses are nonpable bilateral. CFT is less than 5 seconds bilateral. Skin temperature is warm to cool proximal to distal bilateral. There is moderate edema or varicosities noted. Hair growth absent. Skin is ruborous b/l. Non-Invasive Vascular Laboratory [facility] Lower Extremity Arterial Physiology Study Bilateral/Complete Date of service/time: 02/16/2021 10:10:16 AM Name: MS. MACARIO OVERTON Date of : 1975 Age: 45 years Gender: F Medical History Diabetes: Yes Clinical Indication Abnormal pulses. TECHNIQUE -------- An arterial physiological examination was performed, including measurement of blood pressures using continuous wave Doppler and recording of plethysmographic with or without Doppler waveforms at the below-mentioned limb segments. FINDINGS -------- RIGHT SIDE AT REST Right Doppler Waveforms Dorsalis pedis: Triphasic. Post tibial: Triphasic. Right Pressures Brachial: 105 mmHg Ankle dorsalis pedis: 121 mmHg GERALD: 1.06 Ankle posterior tibial: 116 mmHg GERALD: 1.02 Digit: 130 mmHg Right PVR Waveforms Ankle: Normal. Digit: Normal. LEFT SIDE AT REST Left Doppler Waveforms Dorsalis pedis: Triphasic. Post tibial: Triphasic. Left Pressures Brachial: 114 mmHg Ankle dorsalis pedis: 119 mmHg GERALD: 1.04 Ankle posterior tibial: 121 mmHg GERALD: 1.06 Digit: 123 mmHg Left PVR Waveforms Ankle: Normal. Digit: Normal. IMPRESSION RIGHT SIDE Resting right ankle brachial index: 1.06 Right toe brachial index: 1.14 Normal ankle brachial index at rest in the right leg. Normal toe brachial index at rest in the right leg. Right ankle: Normal at rest. LEFT SIDE Resting left ankle brachial index: 1.06 Left toe brachial index: 1.08 Normal ankle brachial index at rest in the left leg. Normal toe brachial index at rest in the left leg. Left ankle: Normal at rest. Technologist: Patty Pitts T, RDMS Ordering physician: PANFILO SCOTT) OZZY Interpreting physician: BEV Long DO Neuro: Protective sensation is absent to the foot and toes when tested with the 5.07 SWM bilateral. Vibratory sensation is absent at the hallux bilateral. + Significant neurological defecits. Derm: Inspection and palpation performed. Nails 1-5 b/l are painful, discolored- yellow, thick, crumbly, dystrophic and with subungal debris. Skin is thin, dry, ruborous. Hyperkeratosis noted to to b/l medial heel. Ulceration to right medial leg that measures 1.5 cm x 1.5 cm. Granular base. No signs of infection. Ortho: Ankle joint DF is decreased with the knee extended and decreased with knee flexed. No pain orcrepitus noted. STJ, MTJ ROM are full and free of pain or crepitus. Muscle strength is 5/5 for dorsiflexors, plantarflexors, inverters, everters. Digital deformities include none. Assessment: (B35.1) Onychomycosis (primary encounter diagnosis) (M79.675) Pain in toe of left foot (M79.674) Pain in toe of right foot (E11.49) Other diabetic neurological complication associated with type 2 diabetes mellitus (HCC) (L85.9) Hyperkeratosis (I87.2) Chronic venous insufficiency (R09.89) Diminished pulses in lower extremity Plan: 1. Patient was seen and evaluated. 2. Patient was instructed on the continued importance of diabetic foot care along with proper diet and keeping their blood sugar under control to prevent complications. Instructions given both oral and written. 3. We discussed the possible etiologies of discolored, dystrophic, and thickened nails including fungus, yeast, mold as well as in some instances, prior trauma, or mechanical causes such as repetitive microtrauma in shoe gear. We discussed topical medication for discolored toenails which has very low success but no major side effects. We discussed oral medication. Patient will need hepatic testing prior to use. Patient informed of risks associated with Lamisil. We discussed removal of toenails. Could consider removal of toenail but would recommend she stop smoking and I would repeat pvr prior. Toenails 1-5 b/l debrided in length and thickness. 4. Will prescribe lotion for neuropathy and callus. This was prescribed in 2019 and this helped. Callus was reduced with dremmel. Diabetic shoe ordered 5. Discussed new ulceration of right leg. Recommend abel wrap and topical antibiotic and adaptic. F/uin 2 months 6. Smoking cessation encouraged. Anita Mosley DPM Saba Brenner LPN - 11/06/2022 10:59 AM EST AMB ROOMING INTAKE FLOWSHEET DATA Risk Screening Do you have concerns about personal safety or safety in the home?: No Pain Pain Level: 9 Pain Location: Other: See Comment (bilateral) Description: Sharp, Dull, Burning, Aching, Sore Duration Amount of Time: 2 Duration Units: Years Frequency: Intermittent Intervention/Comfort measure: Reposition, Relaxation, Medication Patient presents with: Left Foot - Established Patient, Follow Up, Diabetic Foot Care, Pain Right Foot - Established Patient, Follow Up, Pain, Diabetic Foot Care Saba Brenner LPN documented in [facility] InstructionsPatient InstructionsMadustin Mosley - 11/06/2022 11:39 AM EST Recommend adaptic and neosporin to right leg applied daily Use abel wrap from toes to knee to help control edema Diabetes Foot Care Instructions When you have diabetes, proper foot care is very important. Poor foot care may lead to amputation ofa foot or leg. As a person with diabetes, you are more vulnerable to foot problems, because diabetes can damage your nerves and reduce blood flow to your feet. Here are some diabetes foot care tips to follow: Wash and Dry Your Feet Daily Use mild soaps Use warm water Pat your skin dry; do not rub. Thoroughly dry your feet. After washing, use lotion on your feet to prevent cracking. Do not put lotion between your toes. Examine Your Feet Each Day Check the tops and bottoms of your feet. Have someone else look at your feet if you cannot see them.Check for dry, cracked skin. Look for blisters, cuts, scratches, or other sores. Check for redness, increased warmth, or tenderness when touching any area of your feet. Check for ingrown toenails, corns, and calluses. If you get a blister or sore from your shoes, do not pop it. Apply a bandage and wear a different pair of shoes. Take Care of Your Toenails Cut toenails after bathing, when they are soft. Cut toenails straight across and smooth with a nail file. Avoid cutting into the corners of toes. Do not cut cuticles. If you have neuropathy (or decreased sensation in your feet) a onsite health coach should always cut your toenails. Be Careful When Exercising Walk and exercise in comfortable shoes. Do not exercise when you have open sores on your feet. Protect Your Feet With Shoes and Socks Never go barefoot. Always protect your feet by wearing shoes or hard-soled slippers or footwear. Avoid shoes with high heels and pointed toes. Avoid shoes that expose your toes or heels (such as open-toed shoes or sandals). These types of shoes increase your risk for injury and potential infections. Try on new footwear with the type of socks you usually wear. Do not wear new shoes for more than an hour at a time. Change your socks daily. Look and feel inside your shoes before putting them on to make sure there are no foreign objects or rough areas. Avoid tight socks. Wear natural-fiber socks (cotton, wool, or a cotton-wool blend). Wear special shoes if your health care provider recommends them. Wear shoes/boots that will protect your feet from various weather conditions (cold, moisture, etc.).Make sure your shoes fit properly. If you have neuropathy (nerve damage), you may not notice that your shoes are too tight. Perform the footwear test described below. Footwear Test Use this simple test to see if your shoes fit correctly: Stand on a piece of paper. (Make sure you are standing and not sitting, because your foot changes shape when you stand.) Trace the outline of your foot. Trace the outline of your shoe. Compare the tracings: Is the shoe too narrow? Is your foot crammed into the shoe? The shoe should be at least 1/2 inch longer than your longest toe and as wide as your foot. Proper Shoe Choices The following types of shoes are best for people with diabetes Closed toes and heels Leather uppers without a seam inside At least 1/2 inch extra space at the end of your longest toe Inside of shoe should be soft with no rough areas Outer sole should be made of stiff material Shoes should be at least as wide as your feet Tips for Foot Care in Diabetes Don't wait to treat a minor foot problem if you have diabetes. Follow your health care provider's guidelines and first aid guidelines. Report foot injuries and infections to your health care provider immediately. Check water temperature with your elbow, not your foot. Do not use a heating pad on your feet. Do not cross your legs. Do not self-treat your corns, calluses, or other foot problems. Go to your health care provider or onsite health coach to treat these conditions. documented in this encounterK[facility]12-06-2022 Miscellaneous Notes Telephone Encounter - Alanna Michael RN - 11/05/2022 4:28 PM EST Pt and Clarisa with [facility] called and is notified of providers message. Pt voices understanding. Alanna Michael RN Telephone Encounter - Panfilo Oreilly MD - 11/05/2022 4:07 PM EST Will discuss at upcoming OV. Telephone Encounter - Alanna Michael RN - 11/05/2022 3:16 PM EST Clarisa Quintero [facility] called in and was check on order to get scooter for Pt. Let her know that provider would talk with patient about this at her appointment on 11/08/22. She was also reportingthat patient is very short of breath and has Diastolic and Systolic heart failure and can't lay flatin her bed. She is requesting orders for a hospital bed for the Patient. Please call and advise. documented in this encounterK[facility]11-30-2022 [facility] NoteC[facility]11-[facility]-2022 History of Present illness Margarita Suero [facility] - 10/30/2022 1:00 PM EST Primary Care Pharmacy Visit CC (Reason for Consult): Diabetes Goal: A1c < 7% Collaborating Provider: Dr. Oreilly Last Provider Visit: 10/18/22 Macario Overton is a 47 year old female presenting for follow up visit by telephone. Patient consents to pharmacy collaborative practice agreement. Patient is presenting today for follow up pharmacotherapy management appointment for diabetes. Admitted to [facility] form 09/22 to 09/24 for acute on chronic heart failure and COPD exacerbation. At last PCP appt, furosemide was increased to 100mg BID and patient given a prescription for nicotine 2mg lozenge. At last PharmD visit on 09/05/22, no changes were made. Subjective: HPI: Patient 8 minutes late for phone appointment, reached on 2nd attempt. Reports sugars are in 100s the majority of the time. Attribute higher glucoses in the 200s when she eats bread. States she stopped smoking a few days ago. Has nicotine patch and lozenge. Reports patch is not sticking well to her skin. Feels lozenge is controlling cravings, rated control 6/10. Denies any GI distress with lozenge. States she pukes on the day she injects trulicity. Denies any other GI issue associated with trulicity. Reports her weight is fluctuating, but feels her appetite has decrease. Reports feeling thristy all the time. She has noticed when her sugars are not as high, she is less thirsty. Current DM Medications: Metformin ER 500mg tabs - 2000mg daily Dulaglutide (Trulicity) 4.5mg weekly on Empagliflozin (Jardiance) 10mg daily Insulin glargine u300 (Toujeo Max) 92 units BID - 95 BID Insulin lispro (Humalog) 48 units + SSI (2 units for every 50 > 150) TIDAC - 50 units TIDAC + SSI Current HTN Medications: Furosemide 40mg tabs - 100mg BID HCTZ 12.5mg daily Lisinopril 10mg daily Metoprolol ER 25mg daily Diltiazem CD 120mg daily GLYCEMIC CONTROL: SMBG s: patient has a [employer]style domenico, but sensor fell off a few days ago and did not have reader present. Since has been using finger pricks Date Fasting AM Before Lunch Bedtime 10/29 165 222 250 10/28 183 282 168 10/27 277 133 126 10/26 261 115 198 Hypoglycemia: denies any clinical hypoglycemia, but reports feeling low at 115 How corrected: does not correct if glucose is >70 Preventative Medications: On ABEL/ARB: Yes On Statin: Yes ROS: Patient denies CP, SOB, DANIELS, blurred vision, dizziness or lightheadedness Patient denies symptoms of hypoglycemia (sweating, anxiety, palpitations, hunger, and tremor) Patient denies symptoms of hyperglycemia (polyuria, polydipsia, polyphagia) Patient denies potential medication adverse effects MEDICATIONS: Adherence: denies any missed doses Affordability: no issues Organization System: compliance packaging ACTIVE PROBLEM LIST Calculus of Gallbladder Without Mention of Cholecystitis Or Obstruction Anxiety Logan (Obstructive Sleep Apnea) Essential Hypertension Gerd (Gastroesophageal Reflux Disease) Morbid Obesity (Hcc) Microalbuminuria Insomnia History of Tobacco Use Hyperlipidemia Diabetic Neuropathy (Hcc) Type 2 Diabetes Mellitus With Diabetic Polyneuropathy, With Long-Term Current Use of Insulin (Hcc) Mgus (Monoclonal Gammopathy of Unknown Significance) Acute Pulmonary Embolism Without Acute Cor Pulmonale (Hcc) Adrenal Incidentaloma (Hcc) Obesity, Class III, BMI >= 40 PAST MEDICAL HISTORY Diagnosis Date Abscess of right groin 04/07/2014 Acute diastolic heart failure (HCC) 01/2022 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HCC) 07/2019 Left, small lesion on CT Anxiety Cholecystitis s/p cholecystectomy Diabetes mellitus without mention of complication Diabetic neuropathy ([facility]) Seeing Neurology Diastolic heart failure ([facility]) GERD (gastroesophageal reflux disease) History of abnormal cervical Pap smear History of tobacco use Hyperlipidemia Insomnia Microalbuminuria Morbid obesity ([facility]) Narcotic abuse ([facility]) Non-STEMI (non-ST elevated myocardial infarction) ([facility]) 2/2 respiratory illness LOGAN (obstructive sleep apnea) using CPAP, Dr. Dumont Pulmonary embolism ([facility]) Seasonal allergies Unspecified essential hypertension ALLERGIES Allergen Reactions Flexeril [Cyclobenz* Hives Zoloft [Sertraline] Vomiting Medication List Medication Directions Comments Action/Plan albuterol (PROVENTIL) 2.5 mg /3 mL (0.083 %) nebulizer solution Use 3 mL via nebulizer every 2 hoursas needed for wheezing/shortness of breath. Use over 5-15minutes. apixaban (ELIQUIS) 5 mg tab(s) Take 1 tablet by mouth twice daily. atorvastatin (LIPITOR) 80 mg tablet Take 1 tablet by mouth once daily. blood sugar diagnostic (BLOOD GLUCOSE TEST) test strip Test blood sugar four times daily diagnosis e11.42 insulin: yes blood sugar diagnostic (FREESTYLE PRECISION TABITHA STRIPS) test strip To use 4 times daily to monitor glucose. Dx: uncontrolled type II DM, on insulin cholecalciferol, Vitamin D3, (VITAMIN D3) 1,250 mcg (50,000 unit) cap capsule Take 1 capsule by mouth one time a week. For 12 weeks COMPOUNDED PRESCRIPTION Wedge pillow to be used nightly to elevate head for LOGAN Dx: LOGAN COMPOUNDED PRESCRIPTION Diclo CVLP: Diclofenac 2%, Colchicine 0.01%, Verapamil 5%, Lidocaine 2%, Prilocaine 2% SIG: Apply 1-2 pumps to area of pain BID - QID PRN, massaging in well. Repeat after 10 min. COMPOUNDED PRESCRIPTION Serum Gabaketo LP:Gabapentin 10%, Ketoprofen 10%, Lidocaine 2%, Prilocaine 2% SIG: Apply 2-5 drops to area of pain 2-4 times daily PRN, massaging in well. Repeat after 10 min. Compression Knee Highs KNEE HIGH COMPRESSION STOCKINGS 20-30 MM. DX: EDEMA, lymphedema, venous insufficiency dilTIAZem CD (CARDIZEM CD) 120 mg 24 hr capsule Take 1 capsule by mouth once daily. dulaglutide (ORALIA) 4.5 mg/0.5 mL pen injector Inject 4.5 mg subcutaneously one time a week. empagliflozin (JARDIANCE) 10 mg tablet Take 1 tablet by mouth daily with breakfast. famotidine (PEPCID) 20 mg tablet Take 1 tablet by mouth at bedtime as needed. fenofibrate nanocrystallized (TRICOR) 145 mg tablet Take 1 tablet by mouth once daily. flash glucose scanning reader (CymbetSTYLE DOMENICO 14 DAY READER) 1 Device four times daily. flash glucose sensor (FREESTYLE DOMENICO 14 DAY SENSOR) kit 1 Each once daily. Use 1 device for up to 14 days to monitor sugars 4 times per day. furosemide (LASIX) 20 mg tablet Take 1 tablet by mouth twice daily. Take BID with 80 mg lasix to equal 100 mg BID furosemide (LASIX) 40 mg tablet Take 1-2 tablets BID for lower extremity edema gabapentin (NEURONTIN) 800 mg tablet Take 1 tablet by mouth three times daily for 30 days. insulin glargine U-300 conc (TOUJEO MAX U-300 SOLOSTAR) 300 unit/mL (3 mL) inpn Inject 92 Units subcutaneously twice daily. Patient taking differently: Inject 95 Units subcutaneously twice daily. insulin lispro (HUMALOG KWIKPEN INSULIN) 100 unit/mL Inject 48 units plus sliding scale three times daily before meals (Sliding scale: 2 units for every 50 points >150; TDD 150 units) Patient taking differently: Inject 50 Units subcutaneously. Inject 50 units plus sliding scale threetimes daily before meals (Sliding scale: 2 units for every 50 points >150; TDD 150 units) Insulin Covel, Disposable, (BD ULTRA-FINE GABINO PEN NEEDLE) 32 gauge x 5/32 Inject 1 Each subcutaneously four times daily. use with insulin Lancets lancets Use to check blood sugars four times daily as instructed lisinopril (ZESTRIL, PRINIVIL) 10 mg tablet Take 1 tablet by mouth once daily. loratadine (CLARITIN) 10 mg tablet Take 1 tablet by mouth once daily. metFORMIN ER (GLUCOPHAGE XR) 500 mg 24 hr tablet Take 4 tablets by mouth every morning. metoprolol succinate ER (TOPROL XL) 25 mg 24 hr tablet Take 1 tablet by mouth once daily. multivitamin tablet Take 1 tablet by mouth once daily. Nicotine Polacrilex [address] 1 Lozenge between cheek and gum as needed. omeprazole (PRILOSEC) 40 mg capsule Take 1 capsule by mouth once daily. potassium chloride 20 mEq TbER Take 1 tablet by mouth twice daily. Shower Chair with Back once daily. Use as directed WALKER ROLLATOR SEAT WITH 6 WHEELS - RED Patient requires large seat Objective: Exam: VITALS: Last 3 Encounter BP Readings: Date: BP: 10/18/2022 124/70 07/23/2022 136/71 07/09/2022 138/78 Wt: 178.9 kg (394 lb 6.4 oz) BMI: 64.63 kg/(m^2) LABS: Reviewed Lab Results Component Value Date HBA1C 9.7 07/09/2022 HBA1C 10.8 03/19/2022 HBA1C 10.0 12/12/2021 HBA1C 12.8 08/01/2021 HBA1C 13.4 02/14/2021 CMP: Glucose 180 10/18/2022 BUN 22 10/18/2022 Creatinine 0.95 10/18/2022 Sodium 140 10/18/2022 Potassium 4.3 10/18/2022 Chloride 91 10/18/2022 CO2 39 10/18/2022 Protein, Total 7.4 10/18/2022 Albumin 4.2 10/18/2022 Calcium 10.2 10/18/2022 Alkaline Phosphatase 68 10/18/2022 Bilirubin, Total 0.2 10/18/2022 AST 33 10/18/2022 ALT 24 10/18/2022 GFR: 75 (10/18/22) Estimated Creatinine Clearance: 125.7 mL/min (based on SCr of 0.95 mg/dL). Lab Results Component Value Date CHOL 134 12/12/2021 LDL 48 12/12/2021 HDL 34 12/12/2021 TG 261 12/12/2021 The 10-year ASCVD risk score (Urban CROCKETT, et al., 2019) is: 7.3% Values used to calculate the score: Age: 47 years Sex: Female Is Non- : No Diabetic: Yes Tobacco smoker: Yes Systolic Blood Pressure: 124 mmHg Is BP treated: Yes HDL Cholesterol: 34 mg/dL Total Cholesterol: 134 mg/dL Albumin/Creat Ratio (mg/g) Date Value 07/09/2022 63 (H) PHARMACOTHERAPY ASSESSMENT/PLAN: 1. Type 2 diabetes mellitus with diabetic polyneuropathy, with long-term current use of insulin ([facility]) - ICD9: 250.60, 357.2, V58.67, ICD10: E11.42, Z79.4 A1c goal <7%; uncontrolled (last A1c 9.7%); SMBG remains evaluated with daily average of 198 on current regimen; endorses s/sx hypoglycemia, but verbalizes understanding of not clinically low; provied education that as body adjusts to lower glucose levels she will stop feeling low in 110s; endorsess/sx hyperglycemia of increased thirst, which patient notices improvement when sugars lower; advisedpatient to try small, non-fatty meals to help with vomiting on days she takes trulicity; given glucose levels remain above goal will increase toujeo; can increase jardiance to 25mg, but given patient being fluid overload at last offive visit and furosemide subsequently increased, will defer dose increase to upcoming PCP appointment to reassess volume status; hepatic and renal function appropriate fortherapy Increase insulin glargine u300 (Toujeo Max) to 105units BID Continue metformin ER 500mg tabs - 2000mg daily, dulaglutide (Trulicity) 4.5mg weekly, empagliflozin(Jardiance) 10mg daily and insulin lispro (Humalog) 50 units + SSI (2 units for every 50 > 150) TIDAC ACEi/ARB for renal protection: yes Statin: yes HbA1c: due now 2. History of tobacco use - ICD9: V15.82, ICD10: Z87.891 Action stage of change; patient has nicotine patches and lozenges at home which she feels is helping; has been cigarette free for a few days; congratulated and encouraged continued cessation; denies and GI distress with lozenge; advised using a band-aid or other method to help patch stay on; states she was able to quit before for 3 moths, but restarted dur to stress; formed a plan to help manage cravings and stress Discussed physiologic and physical aspects of tobacco addiction as well as strategies for quitting Counseling provided focusing on the harmful effects of this addiction especially given the patient'smedical condition(s) which will be worsened because of the chemicals in tobacco Follow-up Patient is scheduled to see PCP team on 11/08/22. Patient to have f/up with PharmD team on 12/05/21. Patient verbalized understanding of instructions. Tessa Suero RPh, PharmD PGY1 Bandage Winding Machine Operator The majority of the pharmacy visit (> 50%) was spent counseling and/or coordinating care for the patient. interaction: telephonic time was 20 minutes. Robert Sanchez RPh - 10/30/2022 1:00 PM EST The patient's case was discussed with the clinical pharmacy technician who interviewed the patient. Walton elements of history confirmed during office visit. The progress note reflects my input and comments. Robert Sanchez PharmD, [facility] Primary Care Clinical Pharmacist documented in this encounterK[facility]11-22-2022 Miscellaneous Notes Telephone Encounter - Hallie Martinez APRN.CNP - 10/22/2022 10:35 AM EST This can be addressed at her upcoming appointment with Dr. Oreilly. Hallie Martinez APRN.NIKIA Telephone Encounter - Marianne Grier RN - 10/22/2022 9:59 AM EST Clarisa Quintero with [employer] calls to let provider know that they are assisting patient to apply for the medicaid waiver program as she is needing more assistance in the home. Requesting provider submit a claim to [employer] for patient to have a scooter. Clarisa reports that it will probably be denied butdaphnie would like to get the process started. Not pended. Patient has follow up appointment 11/08/2022. Marianne rGier RN documented in this encounterKet[facility]11-22-2022 Miscellaneous Notes Telephone Encounter - Mariam Meredith RN - 10/22/2022 10:28 AM EST Patient returned call and given both of provider's messages below with verbalized understanding. Telephone Encounter - Lula Sarmiento LPN - 10/21/2022 12:38 PM EST Please update patient with both messages below. Lab and xray results. Telephone Encounter - uLla Sarmiento LPN - 10/21/2022 12:38 PM EST ----- Message from Panfilo Oreilly MD sent at 10/21/2022 8:08 AM EST ----- Chest xray normal. Negative for pneumonia or fluid overload. Continue higher dose lasix as discussedin office. Telephone Encounter - Lula Sarmiento LPN - 10/21/2022 12:36 PM EST ----- Message from Panfilo Oreilly MD sent at 10/21/2022 9:43 AM EST ----- Normal/stable labs. BNP from [facility] resulted at 11 which is normal. Recommend she continue higher dose lasix, low sodium diet, wear CPAP nightly as discussed. F/u with cardiology. Call if leg swelling notimproving with lasix or with weight increase as discussed in office. documented in this encounterKet[facility]11-18-2022 Miscellaneous Notes Telephone Encounter - Sandra Potts LPN - 10/18/2022 3:45 PM EST [facility] telephoned and made aware of [employer], [employer] message. Read back. Will dispense for patient. Sandra Potts LPN Telephone Encounter - Hallie Martinez APRN.CNP - 10/18/2022 2:56 PM EST Fine to dispense 81 and that can be for one month. Hallie Martinez APRN.CNP Telephone Encounter - Tri Sorensen RN - 10/18/2022 2:46 PM EST [facility] calling regarding recent script for nicotine patches for patient. Pharmacy states thepacks come in quantity of 81 only and to specify how many days provider would like patient to take this medication. Please contact [facility]. Thank you. documented in this encounterK[facility]11-18-2022 [facility] NoteC[facility]11-18-2022 InstructionsPatient InstructionsChbashir Oreilly MD - 10/18/2022 11:53 AM EST Check daily weight and call with 2-3 lbs weight gain in 24 hours, or 5 lbs total. documented in this encounterKettering [facility]11-18-2022 History of Present illness NarrativeChbashir Oreilly MD - 10/18/2022 10:29 AM EST Chief Complaint Patient presents with: Hospital Follow Up HPI Macario Overton is a 47 year old female who presents here today for Hospital Discharge Follow up.. Patient was admitted to [facility] form 09/22 to 09/24 for acute on chronic heart failure and COPD exacerbation. Presented with SOB x 4 days and CXR showed pulmonary venous congestion in the ED. Admitted to the PCU and managed on IV lasix, solu-medrol, ceftriaxone and azithromycin. COVID, legionella negative. UA positive for E coli. Discharged home with 5 days of Levaquin and Prednisone 40 mg. Lasix 80 mg BID. Advised to quit smoking, f/u with our office and pulmonology. 172.1 kg in the hospital and is 178.9 kg today. Since discharge, she did complete Levaquin and prednisone. Is still getting some productive cough with clear sputum and wheezing. Using her albuterol nebulizer about 3 times per day and needs a refill. Has had increased swelling in her legs despite taking Lasix 80 mg BID. Trying to adhere to low sodium diet and notes that she is getting meals on wheels 1,800 calorie diet. Not adding salt to her food.Did drink a couple zero sugar Gatorades the other day before she noticed its high sodium content. Trying to walk more. Has not been feeling SOB like before she went into the hospital. Using her oxygen 3 L at rest and 4 L with exertion. Notes that she occasionally gets stabbing pain in the center of her chest while resting. Lasts for a couple seconds. Denies pain into her neck/arm, SOB, diaphoresis, nausea, lightheadedn ess, worsening with exertion. EKG on 09/22 showed sinus tachcycardia. No Troponins drawn while inpatient and did not have stress testing. Is not seeing cardiology for diastolic CHF, but has been referred in the past. Notes she has had some tremors and sugars have been in the 150-200 range. Checking sugars 4-6 times per day. 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 Did not need PT or OT on discharge. Notes tremor in her arms and legs for the last few months. Notices most if she goes to hold them outfor any period of time. Has not had any hypoglycemic episodes. Only wearing her Bipap for 2 hours at night. Gets up to use the restroom and falls asleep before putting it back on. Smoking 2-3 cigarettes per day. Would like lozenges to help with cessation. Past medical history, appointments, medications, allergies reviewed. Previous Medical History PAST MEDICAL HISTORY Diagnosis Date Abscess of right groin 04/07/2014 Acute diastolic heart failure (HCC) 01/2022 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HCC) 07/2019 Left, small lesion on CT Anxiety Cholecystitis s/p cholecystectomy Diabetes mellitus without mention of complication Diabetic neuropathy (HCC) Seeing Neurology Diastolic heart failure (HCC) GERD (gastroesophageal reflux disease) History of abnormal cervical Pap smear History of tobacco use Hyperlipidemia Insomnia Microalbuminuria Morbid obesity (HCC) Narcotic abuse (HCC) Non-STEMI (non-ST elevated myocardial infarction) (HCC) 2/2 respiratory illness LOGAN (obstructive sleep apnea) using CPAP, Dr. Dumont Pulmonary embolism (HCC) Seasonal allergies Unspecified essential hypertension Previous Surgical History PAST SURGICAL HISTORY Procedure Laterality Date ANALGESIA,EPIDURAL,LABOR & 1994 INCISION & DRAINAGE ABSCESS COMPLICATED/MULTIPLE 04/07/14 LAPS SURG CHOLECYSTECTOMY W/CHOLANGIOGRAPHY 11/04/2007 PAST SURGICAL HISTORY OF Left 2007 arthroscopic knee surgery PAST SURGICAL HISTORY OF 1995 LEEP Family History FAMILY HISTORY Problem Relation Age of Onset Allergies Mother seasonal Arthritis Mother COPD Mother Diabetes Mother Emphysema Mother Headache Mother Obesity Mother Coronary Artery Disease Father Diabetes Father Heart Father Hypertension Father Stroke Father Lipids Father Blood Clots Father Anesthesia Brother Obesity Brother Asthma Brother Headache Brother Coronary Artery Disease Maternal Grandfather Heart Maternal Grandfather Coronary Artery Disease Paternal Grandfather Heart Paternal Grandfather Stroke Paternal Grandfather Osteoporosis Paternal Grandfather Obesity Daughter Asthma Daughter Allergies Child seasonal Arthritis Child Hearing Loss Child Allergies Maternal Aunt Arthritis Maternal Aunt Cancer Maternal Aunt liver, colon, pancreatic Colon Cancer Maternal Aunt Diabetes Maternal Aunt Emphysema Maternal Aunt Hypertension Maternal Aunt Osteoporosis Maternal Aunt Lipids Maternal Aunt Thyroid Maternal Aunt Cancer Maternal Uncle lung Coronary Artery Disease Maternal Uncle Diabetes Maternal Uncle Emphysema Maternal Uncle Heart Maternal Uncle Hypertension Maternal Uncle Seizures Maternal Uncle Lipids Maternal Uncle Diabetes Paternal Aunt Emphysema Paternal Aunt Coronary Artery Disease Paternal Uncle Diabetes Paternal Uncle Emphysema Paternal Uncle Cancer Other cousin Cervical Cancer Other cousins Hearing Loss Other niece Thyroid Other cousins Patient Allergies ALLERGIES Allergen Reactions Flexeril [Cyclobenz* Hives Zoloft [Sertraline] Vomiting Current Medications Current Outpatient Medications on File Prior to Visit Medication Sig gabapentin (NEURONTIN) 800 mg tablet Take 1 tablet by mouth three times daily for 30 days. dulaglutide (TRULICITY) 4.5 mg/0.5 mL pen injector Inject 4.5 mg subcutaneously one time a week. omeprazole (PRILOSEC) 40 mg capsule Take 1 capsule by mouth once daily. empagliflozin (JARDIANCE) 10 mg tablet Take 1 tablet by mouth daily with breakfast. Insulin Covel, Disposable, (BD ULTRA-FINE GABINO PEN NEEDLE) 32 gauge x 5/32 Inject 1 Each subcutaneously four times daily. use with insulin insulin glargine U-300 conc (TOUJEO MAX U-300 SOLOSTAR) 300 unit/mL (3 mL) inpn Inject 92 Units subcutaneously twice daily. insulin lispro (HUMALOG KWIKPEN INSULIN) 100 unit/mL Inject 48 units plus sliding scale three times daily before meals (Sliding scale: 2 units for every 50 points >150; TDD 150 units) metFORMIN ER (GLUCOPHAGE XR) 500 mg 24 hr tablet Take 4 tablets by mouth every morning. albuterol (PROVENTIL) 2.5 mg /3 mL (0.083 %) nebulizer solution Use 3 mL via nebulizer every 2 hoursas needed for wheezing/shortness of breath. Use over 5-15minutes. apixaban (ELIQUIS) 5 mg tab(s) Take 1 tablet by mouth twice daily. atorvastatin (LIPITOR) 80 mg tablet Take 1 tablet by mouth once daily. blood sugar diagnostic (BLOOD GLUCOSE TEST) test strip Test blood sugar four times daily diagnosis e11.42 insulin: yes blood sugar diagnostic (FREESTYLE PRECISION TABITHA STRIPS) test strip To use 4 times daily to monitor glucose. Dx: uncontrolled type II DM, on insulin dilTIAZem CD (CARDIZEM CD) 120 mg 24 hr capsule Take 1 capsule by mouth once daily. famotidine (PEPCID) 20 mg tablet Take 1 tablet by mouth at bedtime as needed. flash glucose scanning reader (CymbetSTYLE DOMENICO 14 DAY READER) 1 Device four times daily. fenofibrate nanocrystallized (TRICOR) 145 mg tablet Take 1 tablet by mouth once daily. flash glucose sensor (FREESTYLE DOMENICO 14 DAY SENSOR) kit 1 Each once daily. Use 1 device for up to 14 days to monitor sugars 4 times per day. furosemide (LASIX) 40 mg tablet Take 1-2 tablets BID for lower extremity edema lisinopril (ZESTRIL, PRINIVIL) 10 mg tablet Take 1 tablet by mouth once daily. loratadine (CLARITIN) 10 mg tablet Take 1 tablet by mouth once daily. metoprolol succinate ER (TOPROL XL) 25 mg 24 hr tablet Take 1 tablet by mouth once daily. WALKER ROLLATOR SEAT WITH 6 WHEELS - RED Patient requires large seat Shower Chair with Back once daily. Use as directed Lancets lancets Use to check blood sugars four times daily as instructed cholecalciferol, Vitamin D3, (VITAMIN D3) 1,250 mcg (50,000 unit) cap capsule Take 1 capsule by mouth one time a week. For 12 weeks potassium chloride 20 mEq TbER Take 1 tablet by mouth twice daily. multivitamin tablet Take 1 tablet by mouth once daily. COMPOUNDED PRESCRIPTION Serum Gabaketo LP:Gabapentin 10%, Ketoprofen 10%, Lidocaine 2%, Prilocaine 2% SIG: Apply 2-5 drops to area of pain 2-4 times daily PRN, massaging in well. Repeat after 10 min. COMPOUNDED PRESCRIPTION Diclo CVLP: Diclofenac 2%, Colchicine 0.01%, Verapamil 5%, Lidocaine 2%, Prilocaine 2% SIG: Apply 1-2 pumps to area of pain BID - QID PRN, massaging in well. Repeat after 10 min. Compression Knee Highs KNEE HIGH COMPRESSION STOCKINGS 20-30 MM. DX: EDEMA, lymphedema, venous insufficiency COMPOUNDED PRESCRIPTION Wedge pillow to be used nightly to elevate head for LOGAN Dx: LOGAN Current Facility-Administered Medications on File Prior to Visit Medication perflutren lipid microspheres 1.3 mL in NaCl (PF) 0.9% 10 mL injection (DEFINITY) sodium chloride 0.9 % (flush) 10 mL (BD POSIFLUSH) perflutren lipid microspheres 1.3 mL in NaCl (PF) 0.9% 10 mL injection (DEFINITY) sodium chloride 0.9 % (flush) 10 mL (BD POSIFLUSH) Social History Social History Tobacco Use Smoking status: Former Packs/day: 1.00 Years: 21.00 Pack years: 21.00 Types: Cigarettes Smokeless tobacco: Never Tobacco comments: d/c x2 wks Vaping Use Vaping Use: Former Substance Use Topics Alcohol use: Yes Alcohol/week: 0.0 standard drinks Comment: rarely Drug use: No Review of Symptoms REVIEW OF SYSTEMS See HPI EXAM: BP 124/70 Pulse 100 Temp 36 C (96.8 F) Resp 20 Wt (!) 178.9 kg (394 lb 6.4 oz) LMP 10/10/2016 SpO2 97% BMI 64.63 kg/m General Appearance: Well appearing, alert, in no acute distress, well-hydrated, well nourished.. Skin: Skin color, texture, turgor normal, no suspicious rashes or lesions. Lungs: decreased lung sounds bilaterally which may be 2/2 habitus. Scattered wheezing bilaterally. Wearing her oxygen. Able to talk in complete sentences. . Heart: RRR without murmur, gallop, or rubs. No ectopy. Abdomen: Normal abdominal exam, Abdomen soft, non-tender. Bowel sounds normal. No masses, organomegaly. Extremities: Edema: 2+ pitting to knees. Neuro: Patient without tremor at rest. When holding hands outstretched for prolonged period of time,does develop tremor which resolves with rest. CN II-XII grossly intact. Health Maintenance List HEPATITIS B(1 of 3 - 3-dose series) Never done DILATED RETINAL EXAM Never done MAMMOGRAM due on 10/09/2018 DEPRESSION ASSESSMENT Never done COVID-19 VACCINE(3 - Booster for Damir series) due on 03/15/2022 COLORECTAL CANCER SCREENING Never done HBA1C due on 10/09/2022 LDL CHOLESTEROL due on 12/12/2022 BP CONTROLLED (<130/80) due on 12/12/2022 PAP TESTING due on 04/30/2023 HPV TESTING due on 04/30/2023 URINE ALBUMIN:CREATININE RATIO due on 07/09/2023 DIABETIC FOOT EXAM due on 07/09/2023 ANNUAL PCP TEAM CHRONIC DISEASE VISIT due on 07/09/2023 DTAP,TDAP,TD(2 - Td or Tdap) due on 07/01/2027 PNEUMOCOCCAL(3 - PPSV23 if available, else PCV20) due on 2042 INFLUENZA Completed HEPATITIS C SCREENING Completed HIV SCREENING Completed Data reviewed Component Latest Ref Rng & Units 07/09/2022 Protein, Total 6.3 - 8.0 g/dL 7.3 Albumin 3.9 - 4.9 g/dL 4.1 Calcium 8.5 - 10.2 mg/dL 10.5 (H) Bilirubin, Total 0.2 - 1.3 mg/dL 0.3 Alkaline Phosphatase 34 - 123 U/L 58 AST 13 - 35 U/L 38 (H) ALT 7 - 38 U/L 30 Glucose 74 - 99 mg/dL 165 (H) BUN 7 - 21 mg/dL 11 Creatinine 0.58 - 0.96 mg/dL 0.73 Sodium 136 - 144 mmol/L 138 Potassium 3.7 - 5.1 mmol/L 4.6 Chloride 97 - 105 mmol/L 93 (L) CO2 22 - 30 mmol/L 33 (H) Anion Gap 9 - 18 mmol/L 12 eGFR >=60 mL/min/1.73m 104 Creatinine, Ur Random (UCRR) 20.0 - 300.0 mg/dL 31.5 Albumin, Urine Random mg/L 20.0 Albumin/Creat Ratio <30 mg/g 63 (H) Hemoglobin A1C 4.3 - 5.6 % 9.7 (H) Estimated Average Glucose mg/dL 232 NT Pro BNP <125 pg/mL 55 EKG: NSR at 94 bpm ASSESSMENT/PLAN: 1. Acute diastolic CHF (congestive heart failure) (HCC) - ICD9: 428.31, 428.0, ICD10: I50.31 (primary diagnosis) Patient up 7 kg since discharge from the hospital and has LE edema despite taking Lasix 80 mg BID. EKG today shows NSR. Will increase lasix to 100 mg daily and discussed low sodium diet, leg elevation with rest and checking daily weights. To call in next week with update. Obtain labs and imaging as ordered to confirm resolution of pneumonia and evaluate fluid status. Will obtain pharmacologic stress testing which was not completed while inpatient and refer to cardiology. Red flags for re-assessment reviewed with patient in detail. Recommended she use Bipap on a nightly basis as instructed. Continueoxygen until workup completed. - CBC + DIFF - COMP METABOLIC PANEL - NT PRO BNP - XR CHEST 2V FRONTAL/LAT - CONSULT TO CARDIOLOGY - NM CARDIAC PERF STRESS/PHARM - MAGNESIUM BLD - PHOSPHORUS INORGANIC - FUROSEMIDE 20 MG TABLET - ECG COMPLETE 2. COPD with exacerbation ([facility]) - ICD9: 491.21, ICD10: J44.1 Continue oxygen and inhalers as ordered. Needs to schedule f/u with pulmonology. Needs to quit smoking. Given rx for lozenges as requested.. 3. Bacterial pneumonia - ICD9: 482.9, ICD10: J15.9 Recheck CXR. - ALBUTEROL SULFATE 2.5 MG/3 ML (0.083 %) SOLUTION FOR NEBULIZATION 4. Hypoxia - ICD9: 799.02, ICD10: R09.02 Improved on 3L oxygen via NC. 5. LOGAN treated with BiPAP - ICD9: 327.23, ICD10: G47.33 See above. 6. Bilateral lower extremity edema - ICD9: 782.3, ICD10: R60.0 - XR CHEST 2V FRONTAL/LAT - FUROSEMIDE 20 MG TABLET 7. Type 2 diabetes mellitus with diabetic polyneuropathy, with long-term current use of insulin (HCC) - ICD9: 250.60, 357.2, V58.67, ICD10: E11.42, Z79.4 Poorly controlled. Obtain labs as ordered. Work on low carb diet. Keep f/u as scheduled to discuss further. - MAGNESIUM BLD - PHOSPHORUS INORGANIC 8. Other chest pain - ICD9: 786.59, ICD10: R07.89 See above. - ECG COMPLETE 9. Tremor - ICD9: 781.0, ICD10: R25.1 Obtain labs to check calcium, mag, phos, and TSH to evalute for underlying cause. May be 2/2 weakness which was discussed. - TSH BLD 10. Tobacco use - ICD9: 305.1, ICD10: Z72.0 - Cessation encouraged. - Physiologic and physical aspects of tobacco addiction as well as strategies for quitting were discussed. - Counseling was given focusing on the harmful effects of this addiction especially given the patient's medical condition(s) which will be worsened because of the chemicals in tobacco. - NICOTINE (POLACRILEX) 2 MG BUCCAL LOZENGE Panfilo Oreilly MD documented in this [facility]11-04-2022 Miscellaneous Notes Telephone Encounter - Diana Mackenzie LPN - 10/04/2022 1:22 PM EDT Patient has been identified by name and date of : Yes Pharmacy phones for refill(s): Requested Prescriptions Pending Prescriptions Disp Refills gabapentin (NEURONTIN) 800 mg tablet 90 tablet 2 Sig: Take 1 tablet by mouth three times daily for 30 days. Date of last office visit in primary care: 07/09/2022, has appt 10/18/2022 Last 2 Encounter Wt Readings: Date: Wt: 07/23/2022 176.4 kg (389 lb) 07/09/2022 174.9 kg (385 lb 9.6 oz) Previous labs/tests for medication: Not applicable Please advise. Thank you. Diana Mackenzie LPN documented in this [facility]11-01-2022 Miscellaneous Notes Telephone Encounter - Keyonna Gross LPN - 10/01/2022 9:02 AM EDT Spoke with pt and information listed below given. Pt verbalizes understanding. Pt has picked up the Trulicity. 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 Order sent to [facility] today. Called patient to inform but unable to reach. Unable to LMOM since voicemail box not set up yet. The following approved medication requests have been transmitted electronically. Requested Prescriptions Signed Prescriptions Disp Refills dulaglutide (TRULICITY) 4.5 mg/0.5 mL pen injector 2 mL 5 Sig: Inject 4.5 mg subcutaneously one time a week. Authorizing Provider: PANFILO OREILLY Ordering User: ROBERT SANCHEZ Please try contacting patient and informing her of the above. Thanks! Robert Sanchez, PharmD, [facility] Primary Care Clinical Pharmacist Telephone Encounter - Keyonna Gross LPN - 09/09/2022 12:00 PM EDT Pt called and states the medication Trulicty has been backordered for 2 weeks. Pt did not have the medication for last week and she had checked with the pharmacy and they still do not know when the medication will come in. She has nothing to take this Friday. Wanted your opinion on what to do. Keyonna Gross LPN documented in this encounterK[facility]10-10-2022 Miscellaneous Notes Telephone Encounter - Sandra Potts LPN - 09/09/2022 3:57 PM EDT Looks like Robert Sanchez, [facility] sent a new script to 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 Patient telephonedand made aware, agreeable to [facility]. Sandra Potts LPN Telephone Encounter - Panfilo Oreilly MD - 09/09/2022 2:08 PM EDT Can this be transferred to another pharmacy? Telephone Encounter - Jessica Croft LPN - 09/09/2022 2:04 PM EDT [place]/pharmacy calling Trulicty is on backorder, Patient is completely out of medication x1 week, asking if there is an alternative for Patient. Jessica Croft LPN documented in this encounterKettering [facility]10-06-2022 NoteC[facility]09-27-2022 Miscellaneous NotesTelephone Encounter - Lula Cameron LPN - 08/27/2022 2:01 PM EDT Pt calling for refill. HUMBLE: 07/09/22 NOV: 10/18/22 Last Refill: 02/28/22 #90 0 refills Lula Cameron LPN documented in this encounterKettering [facility]09-01-2022 NoteC[facility]innati [facility]09-01-2022 History of Present illness NarrativeEmlara Sanchez [facility] - 08/01/2022 1:00 PM EDT Primary Care Pharmacy Visit CC (Reason for Consult): Diabetes Goal: A1c < 7% Collaborating Provider: Dr. Oreilly Last Provider Visit: 07/09/22 Macarioernesto Overton is a 47 year old female presenting for follow up visit by telephone. Patient consents to pharmacy collaborative practice agreement. Patient is presenting today for f/up pharmacotherapy management appointment for diabetes. At initialPharmD visit on 09/06/21, Trulicity dose was increased, Levemir was switched to Tresiba u200, and patient was consulted to nutrition. At PharmD visit on 09/25, sliding scale was added to mealtime insulin, Trulicity was increased, Novolog adherence was stressed, and patient encouraged to scan CGM more frequently. At PharmD visit on 11/06, Novolog was increased, timing of Tresiba was changed to improve adherence, and dietary modifications encouraged. At PharmD visit on 12/13/21, patient noted missing Tresiba doses so adherence was stressed. Nicotine lozenges also started to help with cessation efforts (needs to be nicotine-free 30 days prior to bariatric surgery). In January 2022 patient hospitalized with SOB (acute respiratory failure, hyponatremia, and pneumonia). HCTZ was stopped and patient sent home on antibiotics and steroids. At PharmD visit on 01/25, Novolog increased to 48 units +SSl TIDAC, metformin, Trulicity, and Tresiba were all continued. At PharmD visit on 03/28, insulin was increased and dietary modifications encouraged. Patient later reported insurance not covering Tresiba so it wasswitched to Noel Samson. At last PharmD visit on 05/02, no med changes made. At last PCP appt, insulin increased. Subjective: HPI: Patient reports not feeling well today. All her grandkids are sick, they think they all have COVID. Symptoms started for her several days ago. Thought it was a cold, some congestion. Denies any CP, SOB, vision changes, or severe DANIELS. Appetite fluctuates. Still taking medications daily. If I could stay away from the sugar I think I would be good. Also eating a lot of fruit. Has the [employer] Domen[employer], said the sensor has fallen off a few time. Just replaced it a couple of days ago. Usually scanning 2-5x/day. Feels occasional thirst or dry mouth. Thinks it is less than what she experienced several weeks ago.Pees constantly with water pills. Hasn't had any yeast infections in a couple of months. There has been a delay in the appts to prep for bariatric surgery. Nothing scheduled yet. Current DM Medications: Metformin ER 500mg tabs - 2000mg daily Dulaglutide (Trulicity) 4.5mg weekly on Wednesdays Insulin glargine u300 (Toujeo Max) 92 units BID Insulin lispro (Humalog) 48 units + SSI (2 units for every 50 > 150) TIDAC Current HTN Medications: Furosemide 40mg tabs - 40-80mg BID for MARIFER HCTZ 12.5mg daily Lisinopril 10mg daily Metoprolol ER 25mg daily Diltiazem CD 120mg daily GLYCEMIC CONTROL: CGM Report Summary of Professional CGM Findings: 1- CGM recording is not adequate for interpretation (55% for 7 day, 58% for 14 day) 2- Average glucose is 274 mg/dL (7 days), 14 day avg 264 mg/dL, 30 day avg 260 mg/dL 3- Total frequency of hypoglycemia: none 4- Nocturnal hypoglycemia was not noted 5- Hyperglycemic episodes: 100% (for 7 and 30 days; 99% for 90 day) 6- Time in target range (70-180 mg/dL): 0% Preventative Medications: On ABEL/ARB: Yes On Statin: Yes ROS: Patient denies CP, SOB, DANIELS, blurred vision, dizziness or lightheadedness Patient denies symptoms of hypoglycemia (sweating, anxiety, palpitations, hunger, and tremor) Patient reports symptoms of hyperglycemia - low energy and frequent urination (though likely attributed to current illness and diuretics) Patient denies potential medication adverse effects DIET/EXERCISE/SOCIAL Hx: States she had a sugar attack and was severely craving sugar all of last week, diet was not very good; it's like a barton, I don't know what to do when I have those cravings. She ate a lot of fruit, some candy (Prasanna cups), uncertain if related to menstrual cycle?; Feels she is doing better Breakfast: scrambled eggs and toast with sausage or aburto; or hard-boiled egg; bagel with cream cheese; cheerios; states she usually eats a bagel once daily with breakfast or lunch Eats a lot of carbs Dinner: cutting back on pasta Snacks: carrots in [place]; celery in peanut butter Beverages: water, tea (Crystal Lite), 1 can soda/day (Pepsi) Exercise: doing some chair exercises; has a lot of swelling and pain in legs, pain in feet from neuropathy MEDICATIONS: Pill bottles are not present Adherence: denies missed doses Pharmacy: [place] [facility] Rx coverage: Medicaid Affordability: no issues Diabetes supplies: [employer] CGM Organization System: pill box ACTIVE PROBLEM LIST Calculus of Gallbladder Without Mention of Cholecystitis Or Obstruction Anxiety Logan (Obstructive Sleep Apnea) Essential Hypertension Gerd (Gastroesophageal Reflux Disease) Morbid Obesity ([facility]) Microalbuminuria Insomnia History of Tobacco Use Hyperlipidemia Diabetic Neuropathy ([facility]) Type 2 Diabetes Mellitus With Diabetic Polyneuropathy, With Long-Term Current Use of Insulin ([facility]) Mgus (Monoclonal Gammopathy of Unknown Significance) Acute Pulmonary Embolism Without Acute Cor Pulmonale ([facility]) Adrenal Incidentaloma ([facility]) Obesity, Class III, BMI >= 40 PAST MEDICAL HISTORY Diagnosis Date Abscess of right groin 04/07/2014 Acute diastolic heart failure ([facility]) 01/2022 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[facility]) 07/2019 Left, small lesion on CT Anxiety Cholecystitis s/p cholecystectomy Diabetes mellitus without mention of complication Diabetic neuropathy ([facility]) Seeing Neurology Diastolic heart failure ([facility]) GERD (gastroesophageal reflux disease) History of abnormal cervical Pap smear History of tobacco use Hyperlipidemia Insomnia Microalbuminuria Morbid obesity ([facility]) Narcotic abuse ([facility]) Non-STEMI (non-ST elevated myocardial infarction) ([facility]) 2/2 respiratory illness LOGAN (obstructive sleep apnea) using CPAP, Dr. Dumont Pulmonary embolism ([facility]) Seasonal allergies Unspecified essential hypertension ALLERGIES Allergen Reactions Flexeril [Cyclobenz* Hives Zoloft [Sertraline] Vomiting Medication List Medication Directions Comments Action/Plan albuterol (PROVENTIL) 2.5 mg /3 mL (0.083 %) nebulizer solution Use 3 mL via nebulizer every 2 hoursas needed for wheezing/shortness of breath. Use over 5-15minutes. apixaban (ELIQUIS) 5 mg tab(s) Take 1 tablet by mouth twice daily. atorvastatin (LIPITOR) 80 mg tablet Take 1 tablet by mouth once daily. blood sugar diagnostic (BLOOD GLUCOSE TEST) test strip Test blood sugar four times daily diagnosis e11.42 insulin: yes blood sugar diagnostic (FREESTYLE PRECISION TABITHA STRIPS) test strip To use 4 times daily to monitor glucose. Dx: uncontrolled type II DM, on insulin cholecalciferol, Vitamin D3, (VITAMIN D3) 1,250 mcg (50,000 unit) cap capsule Take 1 capsule by mouth one time a week. For 12 weeks COMPOUNDED PRESCRIPTION Wedge pillow to be used nightly to elevate head for LOGAN Dx: LOGAN COMPOUNDED PRESCRIPTION Diclo CVLP: Diclofenac 2%, Colchicine 0.01%, Verapamil 5%, Lidocaine 2%, Prilocaine 2% SIG: Apply 1-2 pumps to area of pain BID - QID PRN, massaging in well. Repeat after 10 min. COMPOUNDED PRESCRIPTION Serum Gabaketo LP:Gabapentin 10%, Ketoprofen 10%, Lidocaine 2%, Prilocaine 2% SIG: Apply 2-5 drops to area of pain 2-4 times daily PRN, massaging in well. Repeat after 10 min. Compression Knee Highs KNEE HIGH COMPRESSION STOCKINGS 20-30 MM. DX: EDEMA, lymphedema, venous insufficiency dilTIAZem CD (CARDIZEM CD) 120 mg 24 hr capsule Take 1 capsule by mouth once daily. dulaglutide (TRULICITY) 4.5 mg/0.5 mL pen injector Inject 4.5 mg subcutaneously one time a week. famotidine (PEPCID) 20 mg tablet Take 1 tablet by mouth at bedtime as needed. fenofibrate nanocrystallized (TRICOR) 145 mg tablet Take 1 tablet by mouth once daily. flash glucose scanning reader (FREESTYLE DOMENICO 14 DAY READER) 1 Device four times daily. flash glucose sensor (FREESTYLE DOMENICO 14 DAY SENSOR) kit 1 Each once daily. Use 1 device for up to 14 days to monitor sugars 4 times per day. furosemide (LASIX) 40 mg tablet Take 1-2 tablets BID for lower extremity edema gabapentin (NEURONTIN) 800 mg tablet Take 1 tablet by mouth three times daily for 30 days. insulin glargine U-300 conc (TOUJEO MAX U-300 SOLOSTAR) 300 unit/mL (3 mL) inpn Inject 92 Units subcutaneously twice daily. insulin lispro (HUMALOG KWIKPEN INSULIN) 100 unit/mL Inject 48 units plus sliding scale three times daily before meals (Sliding scale: 2 units for every 50 points >150; TDD 150 units) Insulin Covel, Disposable, (BD ULTRA-FINE GABINO PEN NEEDLE) 32 gauge x 5/32 Inject 1 Each subcutaneously four times daily. use with insulin Discontinued: 07/24/2022 1:02 PM Lancets lancets Use to check blood sugars four times daily as instructed lisinopril (ZESTRIL, PRINIVIL) 10 mg tablet Take 1 tablet by mouth once daily. loratadine (CLARITIN) 10 mg tablet Take 1 tablet by mouth once daily. metFORMIN ER (GLUCOPHAGE XR) 500 mg 24 hr tablet Take 4 tablets by mouth every morning. metoprolol succinate ER (TOPROL XL) 25 mg 24 hr tablet Take 1 tablet by mouth once daily. multivitamin tablet Take 1 tablet by mouth once daily. omeprazole (PRILOSEC) 40 mg capsule Take 1 capsule by mouth once daily. potassium chloride 20 mEq TbER Take 1 tablet by mouth twice daily. Shower Chair with Back once daily. Use as directed WALKER ROLLATOR SEAT WITH 6 WHEELS - RED Patient requires large seat Objective: Exam: Last 3 Encounter BP Readings: Date: BP: 07/23/2022 136/71 07/09/2022 138/78 03/19/2022 140/82 Wt: 176.4 kg (389 lb) BMI: 63.75 kg/(m^2) LABS: Reviewed Lab Results Component Value Date HBA1C 9.7 07/09/2022 HBA1C 10.8 03/19/2022 HBA1C 10.0 12/12/2021 HBA1C 12.8 08/01/2021 HBA1C 13.4 02/14/2021 CMP: Glucose 165 07/09/2022 BUN 11 07/09/2022 Creatinine 0.73 07/09/2022 Sodium 138 07/09/2022 Potassium 4.6 07/09/2022 Chloride 93 07/09/2022 CO2 33 07/09/2022 Protein, Total 7.3 07/09/2022 Albumin 4.1 07/09/2022 Calcium 10.5 07/09/2022 Alkaline Phosphatase 58 07/09/2022 Bilirubin, Total 0.3 07/09/2022 AST 38 07/09/2022 ALT 30 07/09/2022 Estimated Creatinine Clearance: 162.1 mL/min (based on SCr of 0.73 mg/dL). Lab Results Component Value Date CHOL 134 12/12/2021 LDL 48 12/12/2021 HDL 34 12/12/2021 TG 261 12/12/2021 The 10-year ASCVD risk score (Urban CROCKETT, et al., 2019) is: 2.6% Values used to calculate the score: Age: 47 years Sex: Female Is Non- : No Diabetic: Yes Tobacco smoker: No Systolic Blood Pressure: 136 mmHg Is BP treated: Yes HDL Cholesterol: 34 mg/dL Total Cholesterol: 134 mg/dL Albumin/Creat Ratio (mg/g) Date Value 07/09/2022 63 (H) PHARMACOTHERAPY ASSESSMENT/PLAN: 1. Type 2 diabetes mellitus with diabetic polyneuropathy, with long-term current use of insulin (HCC) - ICD9: 250.60, 357.2, V58.67, ICD10: E11.42, Z79.4 A1c goal < 7%; uncontrolled (last A1c 9.7%); no CGM report to review but reported data shows Bgs poorly controlled (avg BG 274 mg/dL, TIR 0%); patient having sx of hyperglycemia (low energy, frequent urination) though difficult to tell if related to current illness and diuretic use; A1c has improved, overall feeling less thirsty; diet seems to be a big issue - not watching carbohydrate intake and limited knowledge about carbs vs protein; patient with elevated BG, desires weight loss, has HFpEF, ASCVD, and microalbuminuria - will start Jardiance today (patient denies any issue with yeast infection in several months); renal fxn and electrolytes sufficient for use INITIATE Jardiance 10mg daily - advised to start AFTER feeling better from current illness. Delay start of medication if having any GI issues. Discussed potential risks of dehydration and genital bacterial/mycotic infxns - counseled to maintain good hydration and personal hygiene; discussed literature findings of possible increased risks of Peaec's gangrene - advised patient to stop medication and contact doctor immediately if notices genital or perianal pain, erythema, tenderness, or swelling; counseled on risk of diabetic ketoacidosis - advised to go to ED if develops sudden nausea/vomiting, fatigue, confusion, SOB, and/or weakness Advised to contact PharmD if any issues accessing medication BMP with next labwork CONTINUE metformin ER 2000mg daily, Trulicity 4.5mg weekly, Toujeo 92 units BID, and Humalog 48 units + SSI TIDAC Reviewed basics of diabetic diet with carb counting; encouraged to review nutrition labels; limit to<45g carbs/meal Will send resources to review via MyChart Advised to only eat 1/2 bagel or switch to bagel thins Applauded on improved A1c Advised to scan CGM more frequently, had niece help her get set up with [employer] ACEi/ARB for renal protection: yes, Scr and K+ sufficient Statin: yes, LFTs sufficient HbA1c: due 10/09 Patient is scheduled to see PCP on 10/18. Patient to have PharmD f/u on 09/05. Patient verbalized understanding of instructions. Robert Sanchez PharmD, [facility] Primary Care Clinical Pharmacist The majority of the pharmacy visit (> 50%) was spent counseling and/or coordinating care for the patient. interaction: telephonic time was 55 minutes. documented in this encounterKettering Health [facility]al [facility] Center09-01-2022 InstructionsPatient InstructionsRobert Sanchez RPh - 08/01/2022 1:00 PM EDT INITIATE Jardiance 10mg once daily. - Wait to start medication until AFTER you are feeling better - Make sure to maintain good hydration - Keep good hygiene of the groin area to avoid yeast infection CONTINUE all of your other medications as prescribed. Scan your CGM sensor more frequently. Be sure to scan as soon as you wake up in the morning, right before bed, and randomly throughout the day. Please ask your niece to help you get set up with the [employer] account. If you did not get the email, please let me know. Start to review nutrition labels. Try to limit your carbohydrates to <30-45g per MEAL. Review thematerials I sent to you via [employer]. Try to incorporate more protein and fiber into your diet. Try switching to 1/2 bagel or to Bagel Thins. documented in this encounterKettering Health [facility] Center08-25-2022 NoteCincinnati [facility] Center08-25-2022 History of Present illness Lewis Bauman MD - 07/25/2022 7:19 PM EDT Macario Overton 1975 REFERRING PHYSICIAN: Panfilo Oreilly,* CHIEF COMPLAINT: Consult (Colonoscopy) HPI: The patient is a 47 year old female referred for endoscopy. Macario notes no blood in her stools She denies abdominal pain. She denies new onset diarrhea and/or constipation. She notes no colon cancer in her immediate family. She denies previous colonoscopy. She was recently evaluated at [facility] ED on 04/21/2022 for chest pain. She was to follow up with cardiology but has not done so yet. She has LOGAN and history of respiratory failure. She is super morbidly obese. Her HgbA1c is persistently elevated. PAST MEDICAL HISTORY Diagnosis Date Abscess of right groin 04/07/2014 Acute diastolic heart failure (HCC) 01/2022 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HCC) 07/2019 Left, small lesion on CT Anxiety Cholecystitis s/p cholecystectomy Diabetes mellitus without mention of complication Diabetic neuropathy (HCC) Seeing Neurology Diastolic heart failure (HCC) GERD (gastroesophageal reflux disease) History of abnormal cervical Pap smear History of tobacco use Hyperlipidemia Insomnia Microalbuminuria Morbid obesity (HCC) Narcotic abuse (HCC) Non-STEMI (non-ST elevated myocardial infarction) ([facility]) 2/2 respiratory illness LOGAN (obstructive sleep apnea) using CPAP, Dr. Dumont Pulmonary embolism ([facility]) Seasonal allergies Unspecified essential hypertension PAST SURGICAL HISTORY Procedure Laterality Date ANALGESIA,EPIDURAL,LABOR & 1994 INCISION & DRAINAGE ABSCESS COMPLICATED/MULTIPLE 04/07/14 LAPS SURG CHOLECYSTECTOMY W/CHOLANGIOGRAPHY 11/04/2007 PAST SURGICAL HISTORY OF Left 2007 arthroscopic knee surgery PAST SURGICAL HISTORY OF 1995 LEEP Current Outpatient Medications Medication Sig Insulin Covel, Disposable, (BD ULTRA-FINE GABINO PEN NEEDLE) 32 gauge x Inject 1 Each subcutaneously four times daily. use with insulin insulin glargine U-300 conc (TOUJEO MAX U-300 SOLOSTAR) 300 unit/mL (3 mL) inpn Inject 92 Units subcutaneously twice daily. insulin lispro (HUMALOG KWIKPEN INSULIN) 100 unit/mL Inject 48 units plus sliding scale three times daily before meals (Sliding scale: 2 units for every 50 points >150; TDD 150 units) metFORMIN ER (GLUCOPHAGE XR) 500 mg 24 hr tablet Take 4 tablets by mouth every morning. albuterol (PROVENTIL) 2.5 mg /3 mL (0.083 %) nebulizer solution Use 3 mL via nebulizer every 2 hoursas needed for wheezing/shortness of breath. Use over 5-15minutes. apixaban (ELIQUIS) 5 mg tab(s) Take 1 tablet by mouth twice daily. atorvastatin (LIPITOR) 80 mg tablet Take 1 tablet by mouth once daily. blood sugar diagnostic (BLOOD GLUCOSE TEST) test strip Test blood sugar four times daily diagnosis e11.42 insulin: yes blood sugar diagnostic (FREESTYLE PRECISION TABITHA STRIPS) test strip To use 4 times daily to monitor glucose. Dx: uncontrolled type II DM, on insulin dilTIAZem CD (CARDIZEM CD) 120 mg 24 hr capsule Take 1 capsule by mouth once daily. dulaglutide (TRULICITY) 4.5 mg/0.5 mL pen injector Inject 4.5 mg subcutaneously one time a week. famotidine (PEPCID) 20 mg tablet Take 1 tablet by mouth at bedtime as needed. flash glucose scanning reader ([employer]YLE DOMENICO 14 DAY READER) 1 Device four times daily. fenofibrate nanocrystallized (TRICOR) 145 mg tablet Take 1 tablet by mouth once daily. flash glucose sensor (FREESTYLE DOMENICO 14 DAY SENSOR) kit 1 Each once daily. Use 1 device for up to 14 days to monitor sugars 4 times per day. furosemide (LASIX) 40 mg tablet Take 1-2 tablets BID for lower extremity edema gabapentin (NEURONTIN) 800 mg tablet Take 1 tablet by mouth three times daily for 30 days. lisinopril (ZESTRIL, PRINIVIL) 10 mg tablet Take 1 tablet by mouth once daily. loratadine (CLARITIN) 10 mg tablet Take 1 tablet by mouth once daily. metoprolol succinate ER (TOPROL XL) 25 mg 24 hr tablet Take 1 tablet by mouth once daily. omeprazole (PRILOSEC) 40 mg capsule Take 1 capsule by mouth once daily. WALKER ROLLATOR SEAT WITH 6 WHEELS - RED Patient requires large seat Shower Chair with Back once daily. Use as directed Lancets lancets Use to check blood sugars four times daily as instructed cholecalciferol, Vitamin D3, (VITAMIN D3) 1,250 mcg (50,000 unit) cap capsule Take 1 capsule by mouth one time a week. For 12 weeks potassium chloride 20 mEq TbER Take 1 tablet by mouth twice daily. multivitamin tablet Take 1 tablet by mouth once daily. COMPOUNDED PRESCRIPTION Serum Gabaketo LP:Gabapentin 10%, Ketoprofen 10%, Lidocaine 2%, Prilocaine 2% SIG: Apply 2-5 drops to area of pain 2-4 times daily PRN, massaging in well. Repeat after 10 min. COMPOUNDED PRESCRIPTION Diclo CVLP: Diclofenac 2%, Colchicine 0.01%, Verapamil 5%, Lidocaine 2%, Prilocaine 2% SIG: Apply 1-2 pumps to area of pain BID - QID PRN, massaging in well. Repeat after 10 min. Compression Knee Highs KNEE HIGH COMPRESSION STOCKINGS 20-30 MM. DX: EDEMA, lymphedema, venous insufficiency COMPOUNDED PRESCRIPTION Wedge pillow to be used nightly to elevate head for LOGAN Dx: LOGAN ALLERGIES: Flexeril [Cyclobenzaprine Hcl] and Zoloft [Sertraline] PERSONAL HISTORY: Social History Tobacco Use Smoking status: Former Packs/day: 1.00 Years: 21.00 Pack years: 21.00 Types: Cigarettes Smokeless tobacco: Never Tobacco comments: d/c x2 wks Vaping Use Vaping Use: Former Substance Use Topics Alcohol use: Yes Alcohol/week: 0.0 standard drinks Comment: rarely Drug use: No FAMILY HISTORY Problem Relation Age of Onset Allergies Mother seasonal Arthritis Mother COPD Mother Diabetes Mother Emphysema Mother Headache Mother Obesity Mother Coronary Artery Disease Father Diabetes Father Heart Father Hypertension Father Stroke Father Lipids Father Blood Clots Father Anesthesia Brother Obesity Brother Asthma Brother Headache Brother Coronary Artery Disease Maternal Grandfather Heart Maternal Grandfather Coronary Artery Disease Paternal Grandfather Heart Paternal Grandfather Stroke Paternal Grandfather Osteoporosis Paternal Grandfather Obesity Daughter Asthma Daughter Allergies Child seasonal Arthritis Child Hearing Loss Child Allergies Maternal Aunt Arthritis Maternal Aunt Cancer Maternal Aunt liver, colon, pancreatic Colon Cancer Maternal Aunt Diabetes Maternal Aunt Emphysema Maternal Aunt Hypertension Maternal Aunt Osteoporosis Maternal Aunt Lipids Maternal Aunt Thyroid Maternal Aunt Cancer Maternal Uncle lung Coronary Artery Disease Maternal Uncle Diabetes Maternal Uncle Emphysema Maternal Uncle Heart Maternal Uncle Hypertension Maternal Uncle Seizures Maternal Uncle Lipids Maternal Uncle Diabetes Paternal Aunt Emphysema Paternal Aunt Coronary Artery Disease Paternal Uncle Diabetes Paternal Uncle Emphysema Paternal Uncle Cancer Other cousin Cervical Cancer Other cousins Hearing Loss Other niece Thyroid Other cousins The review of systems data was entered by the nurse and reviewed by wa Nursing Notes: Nadia Cagle 07/23/2022 10:34 AM Signed REVIEW OF SYSTEMS: General: The patient denies fatigue, denies weight loss, NOTES weight gain, denies feeling hot, and denies feelings of cold. Eyes: The patient denies glaucoma, denies eye injury/surgery, does not wear glasses or contacts. Ear/Nose/Throat: The patient NOTES allergies, denies hayfever, denies ear infections, and denies bloody noses. Cardiovascular: The patient denies chest pain, NOTES heart disease, NOTES high blood pressure,deniescardiac stent, denies prior heart attack, denies irregular heart beat, NOTES high cholesterol, denies poor circulation, denies heart failure, other cardiac issues, denies claudication, denies cold feet, denies peripheral arterial stent. Respiratory: The patient denies tuberculosis, denies pneumonia, NOTES frequent cough, denies pulmonary embolism, NOTES shortness of breath, and denies coughing up blood. Gastrointestinal: The patient denies difficulty swallowing, NOTES acid reflux, denies ulcers, deniesvomiting, denies jaundice/hepatitis, denies gallbladder problems, denies black or tarry stools, denies hemorrhoids, denies bleeding from rectum, denies diverticulitis, denies constipation, denies diarrhea, denies loss of stool control, and denies hernias. Kidney/Bladder: The patient denies kidney stones, denies urine infections, and denies bloody urine. Skin: The patient denies a history of skin cancer, denies bleeding/changing moles, and denies a history of skin rash. Neurologic: The patient denies a history of epilepsy/convulsions, denies headaches, denies head/spinal injuries, and denies stroke/TIA. Psychiatric: The patient denies psychiatric medications, denies depression, and denies voices, denies substance abuse. Endocrine: The patient denies thyroid disorders, NOTES diabetes, and denies hormonal problems. Hematologic: The patient NOTES a history of bruising, NOTES bleeding, and denies anemia, denies blood clots. Infections: The patient denies a history of measles and mumps, denies rheumatic fever, and denies sexually transmitted diseases. Musculoskeletal: The patient NOTES back pain/injury, NOTES back problems, denies sciatica, NOTES knee/foot trouble, NOTES arthritis, or denies gout. When was patient's last Mammogram screening? Unknown Last Colonoscopy: Unknown Nadia Cagle PHYSICAL EXAMINATION: General: The patient is 47 year old female, well nourished, well hydrated in no acute distress. The patient is oriented to time, place, and person. VITALS: Blood pressure 136/71, pulse 103, temperature 36.8 C (98.2 F), height 166.4 cm (5' 5.5 ), weight (!) 176.4 kg (389 lb), last menstrual period 10/10/2016, SpO2 92 %. Body mass index is 63.75 kg/m . Head: Normal cephalic, atraumatic Eyes: pupils are equally round, sclera are clear/anicteric Neck is supple with no tracheal deviation Respiratory: Normal respiratory excursion and pattern. Abdominal exam: benign Extremities: no clubbing, cyanosis or edema. Neuro: non focal Psych: normal mood Assessment IMPRESSION: screening for colon cancer PLAN: I have discussed above with the patient Because of patient's medical morbidities which precludes anesthesia at our local facilities, the patient is an ASA 4, I have offered referral to a larger hospital ([facility]) for screening colonoscopy Patient asks for alternatives for screening for colon cancer, and I have offered stool guaiac testing but told patient that this has to be done on a yearly basis. Patient states that she would prefer stool guaiac testing over going to [facility] for colonoscopy. I have ordered the stool guaiac test for the patient. I told her that I would call her with the results. Patient acknowledges the above. Diagnoses: (Z12.11) Screening for colon cancer (primary encounter diagnosis) I have confirmed and edited as necessary, the PFSH and ROS obtained by others. Consultation requested by Dr. Panfilo Oreilly for an opinion regarding patient's screening for colon cancer. My final recommendations will be communicated back to the requesting physician by way ofshared Medical record or letter to requesting physician via US mail. Return to Clinic: The patient is instructed to follow-up with me as per needed. Medical Decision Making: Problems: Low: Stable chronic illness Medical Decision Making Level: 2 - Straightforward Berenice Bauman MD documented in this encounterKet[facility]08-24-2022 Miscellaneous Notes Telephone Encounter - Belem Romero Ma - 07/24/2022 12:47 PM EDT Last office visit: 07/09/22 F/u scheduled: 10/18/22 Belem Romero Ma Telephone Encounter - Madelyn Estes - 07/24/2022 11:56 AM EDT Patient has been identified by name and date of : Yes Requested Prescriptions Pending Prescriptions Disp Refills insulin needles, DISPOSABLE, (UNIFINE PENTIPS) 31 gauge x 5/16 100 Each 5 Sig: use with insulin RX INSTRUCTIONS: Pharmacy initiated this request. No need to notify patient. Madelyn Estes documented in this encounterKettering [facility]08-23-2022 Nurse Timbo Cagle - 07/23/2022 10:29 AM EDT REVIEW OF SYSTEMS: General: The patient denies fatigue, denies weight loss, NOTES weight gain, denies feeling hot, and denies feelings of cold. Eyes: The patient denies glaucoma, denies eye injury/surgery, does not wear glasses or contacts. Ear/Nose/Throat: The patient NOTES allergies, denies hayfever, denies ear infections, and denies bloody noses. Cardiovascular: The patient denies chest pain, NOTES heart disease, NOTES high blood pressure,deniescardiac stent, denies prior heart attack, denies irregular heart beat, NOTES high cholesterol, denies poor circulation, denies heart failure, other cardiac issues, denies claudication, denies cold feet, denies peripheral arterial stent. Respiratory: The patient denies tuberculosis, denies pneumonia, NOTES frequent cough, denies pulmonary embolism, NOTES shortness of breath, and denies coughing up blood. Gastrointestinal: The patient denies difficulty swallowing, NOTES acid reflux, denies ulcers, deniesvomiting, denies jaundice/hepatitis, denies gallbladder problems, denies black or tarry stools, denies hemorrhoids, denies bleeding from rectum, denies diverticulitis, denies constipation, denies diarrhea, denies loss of stool control, and denies hernias. Kidney/Bladder: The patient denies kidney stones, denies urine infections, and denies bloody urine. Skin: The patient denies a history of skin cancer, denies bleeding/changing moles, and denies a history of skin rash. Neurologic: The patient denies a history of epilepsy/convulsions, denies headaches, denies head/spinal injuries, and denies stroke/TIA. Psychiatric: The patient denies psychiatric medications, denies depression, and denies voices, denies substance abuse. Endocrine: The patient denies thyroid disorders, NOTES diabetes, and denies hormonal problems. Hematologic: The patient NOTES a history of bruising, NOTES bleeding, and denies anemia, denies blood clots. Infections: The patient denies a history of measles and mumps, denies rheumatic fever, and denies sexually transmitted diseases. Musculoskeletal: The patient NOTES back pain/injury, NOTES back problems, denies sciatica, NOTES knee/foot trouble, NOTES arthritis, or denies gout. When was patient's last Mammogram screening? Unknown Last Colonoscopy: Unknown Nadia Cagle documented in this encounterKet[facility]08-11-2022 Miscellaneous Notes Telephone Encounter - Robert Sanchez RPh - 07/11/2022 9:21 AM EDT Called patient to schedule f/up appt for DM mngt, CGM interpretation, and med review. Scheduled for 08/01. Billy MarionD, BCPS Primary Care Clinical Pharmacist documented in this encounterKettering [facility]08-09-2022 NoteC[facility]08-09-2022 Miscellaneous NotesTelephone Encounter - Sandra Potts LPN - 07/09/2022 1:20 PM EDT Patient aware. Sandra Potts LPN Telephone Encounter - Panfilo Oreilly MD - 07/09/2022 1:17 PM EDT Rx sent as requested. Telephone Encounter - Lula Sarmiento LPN - 07/09/2022 11:37 AM EDT Patient is changing her primary pharmacy to [facility] and is requesting all Rx's for medications and diabetic supplies forwarded to them. documented in this encounterKettering [facility]08-09-2022 NoteCincinnati [facility]08-05-2022 Miscellaneous NotesTelephone Encounter - Diana Mackenzie KRISTIAN - 07/05/2022 4:32 PM EDT Patient calling has no medications left her appt is scheduled Monday 07/09. PCP had refused refills on 06/27, said needs appt. Pending rx Please advise Patient has been identified by name and date of : Yes Patient phones for refill(s): Pending Prescriptions Disp Refills FUROSEMIDE 40 MG TABLET 120 tablet 2 Sig: Take 1-2 tablets BID for lower extremity edema RIKKI: No GABAPENTIN 800 MG TABLET 90 tablet 0 Sig: Take 1 tablet by mouth three times daily for 30 days. RIKKI: No METFORMIN ER 500 MG TABLET,EXTENDED RELEASE 24 HR 120 tablet 11 Sig: Take 4 tablets by mouth every morning. RIKKI: No Date of last office visit in primary care: 03/19/2022, has appt 07/09/2022 Last 2 Encounter Wt Readings: Date: Wt: 03/19/2022 168.6 kg (371 lb 12.8 oz) 01/23/2022 0 kg () Previous labs/tests for medication: Diabetes: Hemoglobin A1C (%) Date Value 03/19/2022 10.8 12/12/2021 10.0 08/01/2021 12.8 Blood Pressure: BUN (mg/dL) Date Value 03/19/2022 13 01/23/2022 21 Sodium (mmol/L) Date Value 03/19/2022 138 01/23/2022 134 Last 1 Encounter BP Readings: Date: BP: 03/19/2022 140/82 Please advise. Thank you. Diana Mackenzie LPN documented in this encounterKettering [facility]08-03-2022 Miscellaneous Notes Telephone Encounter - Belem Romero Ma - 07/03/2022 12:14 PM EDT Form discarded as pt denied the need for it. elephone Encounter - Keyonna Gross LPN - 07/03/2022 12:11 PM EDT Pt called back and states she does not need a new blood sugar machine, she already has one. Follow up apt scheduled. Keyonna Gross LPN Telephone Encounter - Belem Romero Ma - 07/03/2022 11:56 AM EDT Office received DM supply form. Message left with pt daughter to have pt call office. Need to know what supplies she needs (ie: test strips, glucose meter, lancets, lancing device, control solution, alcohol swabs) She also needs to schedule an OV, please schedule. Belem Romero Ma documented in this encounterKettering [facility] Center07-29-2022 Miscellaneous NotesTelephone Encounter - Belme Romero Ma - 06/28/2022 4:24 PM EDT See phone note, pt needs appt. Belem Romero Ma elephone Encounter - Panfilo Oreilly MD - 2022 5:25 PM EDT Patient overdue for 3 month follow up. Please call to schedule OV. elephone Encounter - Kimber Moore Pss - 2022 3:33 PM EDT Patient has been identified by name and date of : Yes Pending Prescriptions Disp Refills METFORMIN ER 500 MG TABLET,EXTENDED RELEASE 24 HR 120 tablet 11 Sig: Take 4 tablets by mouth every morning. RIKKI: No FUROSEMIDE 40 MG TABLET 120 tablet 2 Sig: Take 1-2 tablets BID for lower extremity edema RIKKI: No GABAPENTIN 800 MG TABLET 90 tablet 0 Sig: Take 1 tablet by mouth three times daily for 30 days. RIKKI: No HUMBLE-03/19/22 Labs-03/19/22 NOV-none RX INSTRUCTIONS: Patient aware RX will be sent to pharmacy. No need to notify patient. Kimber Moore Pss documented in this encounterKettering [facility]07-29-2022 Miscellaneous Notes Telephone Encounter - Lula Sarmiento LPN - 06/28/2022 11:41 AM EDT Phoned patient to schedule OV follow up as she is past due. Patient had an appointment on 06/18/22 but was a no show. documented in this encounterKettering [facility]07-28-2022 Miscellaneous NotesTelephone Encounter - Robert Sanchez RPh - 2022 11:45 AM EDT Patient no-showed to PharmMonae visit today. Unable to reach via phone and VM not set up yet. Will try reaching out at a later date to reschedule. Robert Sanchez PharmD, [facility] Primary Care Clinical Pharmacist Ronal Paz [facility] documented in this encounterKettering [facility]07-14-2022 Miscellaneous NotesTelephone Encounter - Robert Sanchez RPh - 06/13/2022 11:17 AM EDT Patient is a no show for PharmD visit today. Called patient, she is still out of town, had a car issue and just got fixed today. She apologized for missing and agreed to reschedule for next week on 06/20. Robert Sanchez PharmD, [facility] Primary Care Clinical Pharmacist Ronal Paz [facility] documented in this encounterKettering Health [facility]07-06-2022 Miscellaneous NotesTelephone Encounter - Hallie Martinez APRN.CNP - 06/05/2022 12:22 PM EDT PDMP website checked and validated. All prescriptions have been APPROPRIATELY filled. No suspicious activity was identified. 06/05/2022 by Hallie Martinez APRN.NIKIA Telephone Encounter - Lashon Overton LPN - 06/05/2022 11:14 AM EDT Patient has been identified by name and date of : Yes Patient phones for refill(s): Pending Prescriptions Disp Refills GABAPENTIN 800 MG TABLET 90 tablet 0 Sig: Take 1 tablet by mouth three times daily for 30 days. RIKKI: No Date of last office visit in primary care: 03/19/22 Last 2 Encounter Wt Readings: Date: Wt: 03/19/2022 168.6 kg (371 lb 12.8 oz) 01/23/2022 0 kg () Previous labs/tests for medication: Not applicable Please advise. Thank you. Lashon Overton LPN documented in this encounterKettering [facility]06-02-2022 NoteC[facility]innati [facility] 05-02-2022 History of Present illness NarrativeRobert Sanchez RPh - 05/02/2022 11:00 AM EDT Primary Care Pharmacy Visit CC (Reason for Consult): Diabetes Goal: A1c < 7% Collaborating Provider: Dr. Oreilly Last Provider Visit: 03/19/2022 Macario Overton is a 46 year old female presenting for follow up visit by telephone. Patient consents to pharmacy collaborative practice agreement. . Patient is presenting today for f/up pharmacotherapy management appointment for diabetes. At initialPharmD visit on 09/06/21, Trulicity dose was increased, Levemir was switched to Tresiba u200, and patient was consulted to nutrition. At PharmD visit on 09/25, sliding scale was added to mealtime insulin, Trulicity was increased, Novolog adherence was stressed, and patient encouraged to scan CGM more frequently. At PharmD visit on 11/06, Novolog was increased, timing of Tresiba was changed to improve adherence, and dietary modifications encouraged. At PharmD visit on 12/13/21, patient noted missing Tresiba doses so adherence was stressed. Nicotine lozenges also started to help with cessation efforts (needs to be nicotine-free 30 days prior to bariatric surgery). In January 2022 patient hospitalized with SOB (acute respiratory failure, hyponatremia, and pneumonia). HCTZ was stopped and patient sent home on antibiotics and steroids. At PharmD visit on 01/25, Novolog increased to 48 units +SSl TIDAC, metformin, Trulicity, and Tresiba were all continued. At last PharmD visit on 03/28, insulin was increased and dietary modifications encouraged. Patient later reported insurance not covering Tresiba so it was switched to Toujeo Max. Subjective: HPI: Reports overall her sugars have been doing well, usually in the 100s. States she had an incident and her sugars dropped to 70 mg/dL then 65 mg/dL. She consumed sugar (cup of OJ and chewy Pandoo TEKs), levels eventually went up to 90 mg/dL. States this occurred ~4 days ago in the evening several hours after dinner. She felt dizzy and like she was going to pass out. Denies any unusual increased physical activity. Can't recall what she ate for dinner. Said she only took 48 units of insulin about 15 mins before dinner. This is the only low event she has had. Feels her sugars are doing much better since switching to Toujeo Max. Leaving for vacation in [place] on Friday. Current DM Medications: Metformin ER 500mg tabs - 2000mg daily Dulaglutide (Trulicity) 4.5mg weekly on Fridays Insulin glargine u300 (Toujeo Max) 88 units BID Insulin lispro (Humalog) 48 units + SSI TIDAC Current HTN Medications: Furosemide 40mg tabs - 40-80mg BID for MARIFER HCTZ 12.5mg daily Lisinopril 10mg daily Metoprolol ER 25mg daily Diltiazem CD 120mg daily GLYCEMIC CONTROL: Most numbers <200 mg/dL CGM Report (for 14 days) Summary of Professional CGM Findings: Average glucose is 196 mg/dL (30 days) Preventative Medications: On ABEL/ARB: Yes On Statin: Yes DIET/EXERCISE/SOCIAL Hx: Trying to watch diet and lose weight MEDICATIONS: Pill bottles are not present Adherence: denies missed doses Pharmacy: [facility] in [place] Rx coverage: Medicaid Affordability: no issues Diabetes supplies: wutabout CGM Organization System: pill box ACTIVE PROBLEM LIST Calculus of Gallbladder Without Mention of Cholecystitis Or Obstruction Anxiety Logan (Obstructive Sleep Apnea) Essential Hypertension Gerd (Gastroesophageal Reflux Disease) Morbid Obesity (Hcc) Microalbuminuria Insomnia History of Tobacco Use Hyperlipidemia Diabetic Neuropathy (Hcc) Type 2 Diabetes Mellitus With Diabetic Polyneuropathy, With Long-Term Current Use of Insulin (Hcc) Mgus (Monoclonal Gammopathy of Unknown Significance) Acute Pulmonary Embolism Without Acute Cor Pulmonale (Hcc) Adrenal Incidentaloma (Hcc) Obesity, Class III, BMI >= 40 PAST MEDICAL HISTORY Diagnosis Date Abscess of right groin 04/07/2014 Acute diastolic heart failure (HCC) 01/2022 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HCC) 07/2019 Left, small lesion on CT Anxiety Cholecystitis s/p cholecystectomy Diabetes mellitus without mention of complication Diabetic neuropathy (HCC) Seeing Neurology GERD (gastroesophageal reflux disease) History of abnormal cervical Pap smear History of tobacco use Hyperlipidemia Insomnia Microalbuminuria Morbid obesity (HCC) Narcotic abuse (HCC) Non-STEMI (non-ST elevated myocardial infarction) (HCC) 2/2 respiratory illness LOGAN (obstructive sleep apnea) using CPAP Pulmonary embolism (HCC) Seasonal allergies Unspecified essential hypertension Past medical, family and social history reviewed and updated. ALLERGIES Allergen Reactions Flexeril [Cyclobenz* Hives Zoloft [Sertraline] Vomiting Medication List Medication Directions Comments Action/Plan albuterol (PROVENTIL) 2.5 mg /3 mL (0.083 %) nebulizer solution Use 3 mL via nebulizer every 2 hoursas needed for Wheezing/Shortness of Breath. Use over 5-15minutes. apixaban (ELIQUIS) 5 mg tab(s) Take 1 tablet by mouth twice daily. atorvastatin (LIPITOR) 80 mg tablet Take 1 tablet by mouth once daily. blood sugar diagnostic (BLOOD GLUCOSE TEST) test strip Test blood sugar four times daily diagnosis e11.42 insulin: yes blood sugar diagnostic (FREESTYLE PRECISION TABITHA STRIPS) test strip To use 4 times daily to monitor glucose. Dx: uncontrolled type II DM, on insulin cholecalciferol, Vitamin D3, (VITAMIN D3) 1,250 mcg (50,000 unit) cap capsule Take 1 capsule by mouth one time a week. For 12 weeks COMPOUNDED PRESCRIPTION Wedge pillow to be used nightly to elevate head for LOGAN Dx: LOGAN COMPOUNDED PRESCRIPTION Diclo CVLP: Diclofenac 2%, Colchicine 0.01%, Verapamil 5%, Lidocaine 2%, Prilocaine 2% SIG: Apply 1-2 pumps to area of pain BID - QID PRN, massaging in well. Repeat after 10 min. COMPOUNDED PRESCRIPTION Serum Gabaketo LP:Gabapentin 10%, Ketoprofen 10%, Lidocaine 2%, Prilocaine 2% SIG: Apply 2-5 drops to area of pain 2-4 times daily PRN, massaging in well. Repeat after 10 min. Compression Knee Highs KNEE HIGH COMPRESSION STOCKINGS 20-30 MM. DX: EDEMA, lymphedema, venous insufficiency dilTIAZem CD (CARDIZEM CD) 120 mg 24 hr capsule Take 1 capsule by mouth once daily. dulaglutide (TRULICITY) 4.5 mg/0.5 mL pen injector Inject 4.5 mg subcutaneously one time a week. famotidine (PEPCID) 20 mg tablet Take 1 tablet by mouth at bedtime as needed. fenofibrate nanocrystallized (TRICOR) 145 mg tablet Take 1 tablet by mouth once daily. flash glucose scanning reader (CymbetSTYLE DOMENICO 14 DAY READER) 1 Device four times daily. flash glucose sensor (FREESTYLE DOMENICO 14 DAY SENSOR) kit 1 Each once daily. Use 1 device for up to 14 days to monitor sugars 4 times per day. furosemide (LASIX) 40 mg tablet Take 1-2 tablets BID for lower extremity edema gabapentin (NEURONTIN) 800 mg tablet Take 1 tablet by mouth three times daily for 30 days. insulin glargine U-300 conc (TOUJEO MAX U-300 SOLOSTAR) 300 unit/mL (3 mL) inpn Inject 88 Units subcutaneously twice daily. insulin lispro (HUMALOG KWIKPEN INSULIN) 100 unit/mL Inject 48 units plus sliding scale three times daily before meals (Sliding scale: 2 units for every 50 points >150; TDD 150 units) insulin needles, DISPOSABLE, (UNIFINE PENTIPS) 31 gauge x 5/16 use with insulin Lancets lancets Use to check blood sugars four times daily as instructed lisinopril (ZESTRIL, PRINIVIL) 10 mg tablet Take 1 tablet by mouth once daily. loratadine (CLARITIN) 10 mg tablet Take 1 tablet by mouth once daily. metFORMIN ER (GLUCOPHAGE XR) 500 mg 24 hr tablet Take 4 tablets by mouth every morning. metoprolol succinate ER (TOPROL XL) 25 mg 24 hr tablet Take 1 tablet by mouth once daily. multivitamin tablet Take 1 tablet by mouth once daily. omeprazole (PRILOSEC) 40 mg capsule Take 1 capsule by mouth once daily. potassium chloride 20 mEq TbER Take 1 tablet by mouth twice daily. Shower Chair with Back once daily. Use as directed WALKER ROLLATOR SEAT WITH 6 WHEELS - RED Patient requires large seat Objective: Exam: Last 3 Encounter BP Readings: Date: BP: 03/19/2022 140/82 01/23/2022 128/78 12/12/2021 122/64 Wt: 168.6 kg (371 lb 12.8 oz) BMI: 62.70 kg/(m^2) LABS: Reviewed Lab Results Component Value Date HBA1C 10.8 03/19/2022 HBA1C 10.0 12/12/2021 HBA1C 12.8 08/01/2021 HBA1C 13.4 02/14/2021 CMP: Glucose 251 03/19/2022 BUN 13 03/19/2022 Creatinine 0.78 03/19/2022 Sodium 138 03/19/2022 Potassium 4.9 03/19/2022 Chloride 95 03/19/2022 CO2 33 03/19/2022 Protein, Total 6.7 03/19/2022 Albumin 4.0 03/19/2022 Calcium 9.8 03/19/2022 Alkaline Phosphatase 71 03/19/2022 Bilirubin, Total 0.2 03/19/2022 AST 30 03/19/2022 ALT 22 03/19/2022 Estimated Creatinine Clearance: 146.8 mL/min (based on SCr of 0.78 mg/dL). Lab Results Component Value Date CHOL 134 12/12/2021 LDL 48 12/12/2021 HDL 34 12/12/2021 TG 261 12/12/2021 The 10-year ASCVD risk score (Maki SURESH Jr., et al., 2013) is: 2.6% Values used to calculate the score: Age: 46 years Sex: Female Is Non- : No Diabetic: Yes Tobacco smoker: No Systolic Blood Pressure: 140 mmHg Is BP treated: Yes HDL Cholesterol: 34 mg/dL Total Cholesterol: 134 mg/dL Albumin/Creat Ratio (mg/g) Date Value 08/01/2021 130 (H) PHARMACOTHERAPY ASSESSMENT/PLAN: 1. Type 2 diabetes mellitus with diabetic polyneuropathy, with long-term current use of insulin (HCC) - ICD9: 250.60, 357.2, V58.67, ICD10: E11.42, Z79.4 A1c goal < 7%; uncontrolled (last A1c 10.8%); no SMBG log to review or CGM report but patient reports most BGs in the 100s since switching to Toujeo Max; she had 1 episode of low BG several days agoafter dinner (BG ~65) which she treated correctly, except she did NOT follow up with a protein snack; PharmD spent ~10 mins trying to walk patient through how to review CGM data on the reader, also explained how to set up a Libreview account; since lows are not frequent and no SMBG to review will not make med changes today and will f/up in 1 mo when hopefully will have CGM report to review; in futureto consider starting an SGLT2i which could assist with BG control, weight loss, and proteinuria CONTINUE metformin ER 2000mg daily, Trulicity 4.5mg weekly, Toujeo Max 88 units BID, and Humalog 48units + SSI TIDAC Counseled on appropriate mngt of hypoglycemia; encouraged to have a protein snack/shake after she corrects a low; advised to contact PharmD if has frequent issues with low BGs Applauded on weight loss efforts and watching diet PharmD sent invite to link via [employer]. Patient to get account set up prior to next PharmD visit and have CGM downloaded the day prior HbA1c: due 06/18 Patient is scheduled to see [employer] on 06/18. Patient to have PharmD f/u on 06/06. Patient verbalized understanding of instructions. Robert Sanchez PharmD, [facility] Primary Care Clinical Pharmacist Ronal Paz [facility] The majority of the pharmacy visit (> 50%) was spent counseling and/or coordinating care for the patient. interaction: telephonic time was 30 minutes. documented in this encounterKettering Health Behavioral [facility] Center06-01-2022 Miscellaneous NotesTelephone Encounter - Hallie Martinez APRN.CNP - 05/01/2022 9:24 AM EDT PDMP website checked and validated. All prescriptions have been APPROPRIATELY filled. No suspicious activity was identified. 05/01/2022 by Hallie Martinez APRN.NIKIA Telephone Encounter - Georgina Samayoa RN - 05/01/2022 9:12 AM EDT Patient has been identified by name and date of : Yes Patient phones for refill(s): Pending Prescriptions Disp Refills GABAPENTIN 800 MG TABLET 90 tablet 0 Sig: Take 1 tablet by mouth three times daily for 30 days. RIKKI: No Date of last office visit in primary care: 03/19/2022; Future Appt. 06/18/2022 Last 2 Encounter Wt Readings: Date: Wt: 03/19/2022 168.6 kg (371 lb 12.8 oz) 01/23/2022 0 kg () Previous labs/tests for medication: Blood Pressure: BUN (mg/dL) Date Value 03/19/2022 13 01/23/2022 21 Sodium (mmol/L) Date Value 03/19/2022 138 01/23/2022 134 Last 1 Encounter BP Readings: Date: BP: 03/19/2022 140/82 Liver Function: ALT (U/L) Date Value 03/19/2022 22 12/12/2021 19 AST (U/L) Date Value 03/19/2022 30 12/12/2021 23 Please advise. Thank you. Georgina Samayoa RN documented in this encounterKettering [facility]05-11-2022 Miscellaneous NotesTelephone Encounter - Panfilo Oreilly MD - 04/10/2022 1:59 PM EDT Reviewed. Will discuss this further at future OV. elephone Encounter - Marianne Grier RN - 04/10/2022 9:31 AM EDT Patient calls in and provider message below given. Patient reports that she didn't refill the Gabapentin 300 mg. [facility] and [facility] filled it because it had one remaining refill and none on the Gabapentin 800 mg prescription. Reviewed provider message below again with patient. Marianne Grier RN Telephone Encounter - Panfilo Oreilly MD - 04/10/2022 9:08 AM EDT If she was taking the 800 mg Gabapentin and it was working for her, I do not know why she would havefilled another rx for the 300 mg dosage on 04/05. Based on this, I will not be able to refill her medication until 05/06. elephone Encounter - Susannah Stephens Ma - 04/10/2022 8:12 AM EDT Spoke to patient who received gabapentin 800 mg on 03/19 and than 300 mg on 04/02. Patient is aware sheis not to have both prescriptions and needs to discard. Rx for 800 mg would be due to refill on 04/18. Please advise Susannah Stephens Ma Telephone Encounter - Panfilo Oreilly MD - 04/09/2022 3:46 PM EDT She just filled this on 04/05. Cannot reorder for 30 days. PDMP website checked and validated. 04/09/2022 by Panfilo Oreilly MD Telephone Encounter - Vanessa Domingo - 04/09/2022 2:02 PM EDT Patient is calling today to advise the pill form of gabapentin seems to be working better than the capsules. She was only given the 30 trial of the pill form and would like to go forward with that typeof pill and have it sent to her pharmacy , [facility]. Patient has been identified by name and date of : Yes Pending Prescriptions Disp Refills GABAPENTIN 800 MG TABLET 90 tablet 0 Sig: Take 1 tablet by mouth three times daily for 30 days. RIKKI: No RX INSTRUCTIONS: Patient aware RX will be sent to pharmacy. No need to notify patient. Vanessa FerrarisecElectronically signed by Vanessa Ignacio [facility] at 04/09/2022 2:08 PM EDTdocumented in this encounterKettering Health Behavioral [facility] Center05-04-2022 Miscellaneous NotesTelephone Encounter - Robert Sanchez, [facility] - 04/03/2022 10:56 AM EDT PharmD called patient to see if she received Toujeo and review BG readings. Patient stated she has not yet picked up Toujeo, got notification that insulin is available to be picked up today which she plans to do. States her last dose of Tresiba was yesterday, ran out today. BGs have been in the 100s. Reviewed Toujeo Max dosing with patient, advised her to take first dose this evening. PharmD will plan to call on Friday or Friday to see if dose adjustment needs made. Advised to keep detailed BG log and contact office with any issues. Robert Sanchez PharmD, [facility] Primary Care Clinical Pharmacist Ronal Paz [facility] documented in this encounterKettering Health Behavioral [facility] Center04-29-2022 Miscellaneous NotesTelephone Encounter - Robert Snachez RPh - 03/29/2022 4:04 PM EDT Dose conversion from Tresiba doses >80 units recommends reducing dose by 20% out of caution. Willorder Toujeo Max 88 units BID (was on Tresiba 110 units BID). Resident instructed patient to contactPharmD if BGs elevate as a result as frequent insulin dose titrations may be made. The following approved medication requests have been transmitted electronically. Pending Prescriptions Disp Refills TOUJEO MAX U-300 SOLOSTAR 300 UNIT/ML (3 ML) SUBCUTANEOUS INSULIN PEN 18 mL 5 Sig: Inject 88 Units subcutaneously twice daily. Robert Sanchez RPh elephone Encounter - Leena Salinas RPh - 03/29/2022 3:53 PM EDT PharmMonae called patient to update on information below. Discussed starting Toujeo Max in place of Tresiba and counseled patient on new dosing schedule. Recommended patient to notify PharmD in approximately 1 week to review SMBG so PharmD can make dose adjustments if necessary prior to next f/up visit. Patient denied having any additional questions andverbalized understanding. Leena Salinas PharmD PGY1 Bandage Winding Machine Operator elephone Encounter - Leena Salinas RPh - 03/29/2022 3:09 PM EDT PharmMonae called patient's preferred pharmacy and spoke to Michael Blas. Per pharmacist, receiving an insurance rejection for Tresiba insulin stating that this product is not on insurance's formulary. No alternative therapies were provided on insurance rejection notification. Appears that product Toujeo Max should be a preferred, level 1 item on patient's insurance. PharmD will send updated prescription to patient's preferred pharmacy for Toujeo Max to assess for insurance coverage. Leena Salinas PharmD PGY1 Bandage Winding Machine Operator elephone Encounter - Georgina Samayoa RN - 03/29/2022 11:38 AM EDT Patient calls and states that provider had increased patient's insurance yesterday at appointment. Patient states that when she went to fruit picker machine operator medication she was told that dosage is too high by pharmacist and insurance will not cover medication. Patient states that she may need a prior authorization. Please review and advise, Georgina Samayoa RN documented in this encounterKettering Health [facility] Center04-28-2022 Miscellaneous Notes Telephone Encounter - Gisele Dumas - 03/28/2022 2:30 PM EDT Patient notified of results, verbalizes understanding of instructions. Telephone Encounter - Panfilo Oreilly MD - 03/28/2022 2:05 PM EDT Will call in rx for clotrimazole cream to be applied to areas of rash BID for 14 days or for 1 week after rash has resolved. Needs to keep area clean and dry to prevent recurrent rash. Continue to workon DM control as uncontrolled DM can lead to increased fungal infections. If she develops pain, spreading redness, fever, or pus drainage needs to call right away for OV to evaluate for skin infection. elephone Encounter - Alanna Michael RN - 03/28/2022 1:16 PM EDT Pt called in and reports that she has a yeast infection under her abdomen and her breasts. She states that she can get it to go away under her abdomen, but it comes right back and she has never had it under her breasts. She states it is red, raw, and burning. She states that it is not open. Pt is asking if provider will send a medication to [facility] in [place] for her. Please call and advise. documented in this encounterKettering [facility] Center04-28-2022 NoteC[facility]innati [facility]04-28-2022 NoteCincinnati [facility] Medical Center04-28-2022 History of Present illness Kimo Sanchez RPh - 03/28/2022 10:30 AM EDT The patient's case was discussed with the clinical pharmacy technician who interviewed the patient. Walton elements of history confirmed during office visit. The progress note reflects my input and comments. Robert Sanchez PharmD, [facility] Primary Care Clinical Pharmacist Carmel PHILLIPS [facility] Elizabeth Salinas RPh - 03/28/2022 10:30 AM EDT Primary Care Pharmacy Visit CC (Reason for Consult): Diabetes Goal: A1c < 7% Collaborating Provider: Dr. Oreilly Last Provider Visit: 03/19/2022 Macario Overton is a 46 year old female presenting for follow up visit by telephone. Patient consents to pharmacy collaborative practice agreement. . Patient is presenting today for f/up pharmacotherapy management appointment for diabetes. At initialPharmD visit on 09/06/21, Trulicity dose was increased, Levemir was switched to Tresiba u200, and patient was consulted to nutrition. At PharmD visit on 09/25, sliding scale was added to mealtime insulin, Trulicity was increased, Novolog adherence was stressed, and patient encouraged to scan CGM more frequently. At PharmD visit on 11/06, Novolog was increased, timing of Tresiba was changed to improve adherence, and dietary modifications encouraged. At PharmD visit on 12/13/21, patient noted missing Tresiba doses so adherence was stressed. Nicotine lozenges also started to help with cessation efforts (needs to be nicotine-free 30 days prior to bariatric surgery). In January 2022 patient hospitalized with SOB (acute respiratory failure, hyponatremia, and pneumonia). HCTZ was stopped and patient sent home on antibiotics and steroids. At last PharmD visit on 01/25, Novolog increased to 48 units +SSl TIDAC, metformin, Trulicity, and Tresiba were all continued. At last PCP appt, no medication changes were made, patient encouraged to f/up with PharmD. Subjective: HPI: Patient states that things are going fine for her, having elevated BGs but not as high as before, more readings < 200 mg/dL but usually in the mid-200s mg/dL. Patient was able to obtain [employer]omen[employer] CGM and was using. Patient recently placed new sensor on arm, but it was accidentally knocked offa couple days later. Not currently using CGM or checking BG. Patient states she never received invite for [employer] to connect with PharmD to view CGM report. Patient has concerns for continually getting yeast infections, currently has skin yeast infection under her breasts/bra line but patient reports also frequently getting infections under her belly and vaginally as well. Patient currently using baby powder on areas without much improvement. Patient consi dering reaching out to PCP's office to get prescription medication to treat. Patient inquiring aboutstarting another medication as discussed at last PharmD visit to help with BG control and weight loss. Patient endorses that following a healthier diet is still a struggle for her, she was previously drinking more soda for caffeine intake but knows it causes her to have high BG. Patient reports cutting soda back down to drinking less than 1/2 can daily. Patient reports she does eat a lot of fruit, eating apples, pears, bananas, and plums daily. Patient states she is tolerating all her medications without any GI sx. Patient experiencing hyperglycemia sx of increased thirst, dry mouth, and frequent urination. Patient will occasionally experience symptoms of hypoglycemia feeling clammy and shaky, will check BG with readings in the 80s-100s mg/dL, denies ever having any readings < 70 mg/dL. Patient states she experiences this approximately once every 2 weeks or so. Patient states she has also cut back on smoking, smoking < 1 cigarette per day, not smoking everyday. Patient reports still using NRT patch and lozenge. Patient working to decrease all of these in an effort to be nicotine free for 30 days prior to bariatric surgery, will have more f/up for surgeryand nothing has been scheduled yet. Patient endorses main goals are to improve BG control and improve diet, in order to get surgery. Current DM Medications: Dulaglutide (Trulicity) 4.5 mg weekly on Fridays Insulin degludec (Tresiba) 100 units BID Insulin lispro (Humalog) 48 units + SSl TIDAC - reports using sliding scale, most doses ~ 50 units Metformin ER 500 mg tabs - 2000 mg daily Current HTN Medications: Furosemide 40 mg tabs, 40-80 mg BID HCTZ 12.5 mg daily Lisinopril 10 mg daily Metoprolol ER 25 mg daily Diltiazem CD 120 mg daily GLYCEMIC CONTROL: Glucometer present at visit: No Hypoglycemia: denies Preventative Medications: On ABEL/ARB: Yes On Statin: Yes ROS: Patient denies CP, SOB, DANIELS, blurred vision, dizziness or lightheadedness Patient denies symptoms of hypoglycemia (sweating, anxiety, palpitations, hunger, and tremor) Patient reports symptoms of hyperglycemia (polyuria, polydipsia, polyphagia) Patient denies potential medication adverse effects MEDICATIONS: Pill bottles are not present Adherence: reports missed doses - out of Tresiba starting this morning, getting from pharmacy later today Pharmacy: [facility] in [place] Rx coverage: Medicaid Affordability: no issues Diabetes supplies: wutabout CGM Organization System: pill box ACTIVE PROBLEM LIST Calculus of Gallbladder Without Mention of Cholecystitis Or Obstruction Anxiety Logan (Obstructive Sleep Apnea) Essential Hypertension Gerd (Gastroesophageal Reflux Disease) Morbid Obesity (Hcc) Microalbuminuria Insomnia History of Tobacco Use Hyperlipidemia Diabetic Neuropathy (Hcc) Type 2 Diabetes Mellitus With Diabetic Polyneuropathy, With Long-Term Current Use of Insulin (Hcc) Mgus (Monoclonal Gammopathy of Unknown Significance) Acute Pulmonary Embolism Without Acute Cor Pulmonale (Hcc) Adrenal Incidentaloma (Hcc) Obesity, Class III, BMI >= 40 PAST MEDICAL HISTORY Diagnosis Date Abscess of right groin 04/07/2014 Acute diastolic heart failure ([facility]) 01/2022 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[facility]) 07/2019 Left, small lesion on CT Anxiety Cholecystitis s/p cholecystectomy Diabetes mellitus without mention of complication Diabetic neuropathy ([facility]) Seeing Neurology GERD (gastroesophageal reflux disease) History of abnormal cervical Pap smear History of tobacco use Hyperlipidemia Insomnia Microalbuminuria Morbid obesity ([facility]) Narcotic abuse ([facility]) Non-STEMI (non-ST elevated myocardial infarction) ([facility]) 2/2 respiratory illness LOGAN (obstructive sleep apnea) using CPAP Pulmonary embolism ([facility]) Seasonal allergies Unspecified essential hypertension Past medical, family and social history reviewed and updated. ALLERGIES Allergen Reactions Flexeril [Cyclobenz* Hives Zoloft [Sertraline] Vomiting Medication List Medication Directions Comments Action/Plan albuterol (PROVENTIL) 2.5 mg /3 mL (0.083 %) nebulizer solution Use 3 mL via nebulizer every 2 hoursas needed for Wheezing/Shortness of Breath. Use over 5-15minutes. apixaban (ELIQUIS) 5 mg tab(s) Take 1 tablet by mouth twice daily. atorvastatin (LIPITOR) 80 mg tablet Take 1 tablet by mouth once daily. blood sugar diagnostic (BLOOD GLUCOSE TEST) test strip Test blood sugar four times daily diagnosis e11.42 insulin: yes blood sugar diagnostic (FREESTYLE PRECISION TABITHA STRIPS) test strip To use 4 times daily to monitor glucose. Dx: uncontrolled type II DM, on insulin cholecalciferol, Vitamin D3, (VITAMIN D3) 1,250 mcg (50,000 unit) cap capsule Take 1 capsule by mouth one time a week. For 12 weeks COMPOUNDED PRESCRIPTION Wedge pillow to be used nightly to elevate head for LOGAN Dx: LOGAN COMPOUNDED PRESCRIPTION Diclo CVLP: Diclofenac 2%, Colchicine 0.01%, Verapamil 5%, Lidocaine 2%, Prilocaine 2% SIG: Apply 1-2 pumps to area of pain BID - QID PRN, massaging in well. Repeat after 10 min. COMPOUNDED PRESCRIPTION Serum Gabaketo LP:Gabapentin 10%, Ketoprofen 10%, Lidocaine 2%, Prilocaine 2% SIG: Apply 2-5 drops to area of pain 2-4 times daily PRN, massaging in well. Repeat after 10 min. Compression Knee Highs KNEE HIGH COMPRESSION STOCKINGS 20-30 MM. DX: EDEMA, lymphedema, venous insufficiency dilTIAZem CD (CARDIZEM CD) 120 mg 24 hr capsule Take 1 capsule by mouth once daily. dulaglutide (TRULICITY) 4.5 mg/0.5 mL pen injector Inject 4.5 mg subcutaneously one time a week. famotidine (PEPCID) 20 mg tablet Take 1 tablet by mouth at bedtime as needed. fenofibrate nanocrystallized (TRICOR) 145 mg tablet Take 1 tablet by mouth once daily. flash glucose scanning reader (CymbetSTYLE DOMENICO 14 DAY READER) 1 Device four times daily. flash glucose sensor (FREESTYLE DOMENICO 14 DAY SENSOR) kit 1 Each once daily. Use 1 device for up to 14 days to monitor sugars 4 times per day. furosemide (LASIX) 40 mg tablet Take 1-2 tablets BID for lower extremity edema gabapentin (NEURONTIN) 800 mg tablet Take 1 tablet by mouth three times daily for 30 days. insulin degludec (TRESIBA FLEXTOUCH U-200) 200 unit/mL (3 mL) injection Inject 100 Units subcutaneously twice daily. This replaces Levemir. insulin lispro (HUMALOG KWIKPEN INSULIN) 100 unit/mL Inject 48 units plus sliding scale three times daily before meals (Sliding scale: 2 units for every 50 points >150; TDD 150 units) insulin needles, DISPOSABLE, (UNIFINE PENTIPS) 31 gauge x 5/16 use with insulin Lancets lancets Use to check blood sugars four times daily as instructed lisinopril (ZESTRIL, PRINIVIL) 10 mg tablet Take 1 tablet by mouth once daily. loratadine (CLARITIN) 10 mg tablet Take 1 tablet by mouth once daily. metFORMIN ER (GLUCOPHAGE XR) 500 mg 24 hr tablet Take 4 tablets by mouth every morning. metoprolol succinate ER (TOPROL XL) 25 mg 24 hr tablet Take 1 tablet by mouth once daily. multivitamin tablet Take 1 tablet by mouth once daily. omeprazole (PRILOSEC) 40 mg capsule Take 1 capsule by mouth once daily. potassium chloride 20 mEq TbER Take 1 tablet by mouth twice daily. Shower Chair with Back once daily. Use as directed WALKER ROLLATOR SEAT WITH 6 WHEELS - RED Patient requires large seat Objective: Last 3 Encounter BP Readings: Date: BP: 03/19/2022 140/82 01/23/2022 128/78 12/12/2021 122/64 Wt: 168.6 kg (371 lb 12.8 oz) BMI: 62.70 kg/(m^2) LABS: Reviewed Lab Results Component Value Date HBA1C 10.8 03/19/2022 HBA1C 10.0 12/12/2021 HBA1C 12.8 08/01/2021 HBA1C 13.4 02/14/2021 CMP: Glucose 251 03/19/2022 BUN 13 03/19/2022 Creatinine 0.78 03/19/2022 Sodium 138 03/19/2022 Potassium 4.9 03/19/2022 Chloride 95 03/19/2022 CO2 33 03/19/2022 Protein, Total 6.7 03/19/2022 Albumin 4.0 03/19/2022 Calcium 9.8 03/19/2022 Alkaline Phosphatase 71 03/19/2022 Bilirubin, Total 0.2 03/19/2022 AST 30 03/19/2022 ALT 22 03/19/2022 Estimated Creatinine Clearance: 146.8 mL/min (based on SCr of 0.78 mg/dL). Lab Results Component Value Date CHOL 134 12/12/2021 LDL 48 12/12/2021 HDL 34 12/12/2021 TG 261 12/12/2021 The 10-year ASCVD risk score (Philadelphianikole SURESH Jr., et al., 2013) is: 2.6% Values used to calculate the score: Age: 46 years Sex: Female Is Non- : No Diabetic: Yes Tobacco smoker: No Systolic Blood Pressure: 140 mmHg Is BP treated: Yes HDL Cholesterol: 34 mg/dL Total Cholesterol: 134 mg/dL Albumin/Creat Ratio (mg/g) Date Value 08/01/2021 130 (H) PHARMACOTHERAPY ASSESSMENT/PLAN: 1. Type 2 diabetes mellitus with diabetic polyneuropathy, with long-term current use of insulin (HCC) - ICD9: 250.60, 357.2, V58.67, ICD10: E11.42, Z79.4 A1c goal < 7%; uncontrolled (last A1c 10.8%); no SMBG to review, appears to be above goal on current regimen; reports sx hypoglycemia when BG decreases to ~ 100 mg/dL, no readings < 70 mg/dL; reports s/sx hyperglycemia - thirst, dry mouth, urination; patient expresses interest in initiating SGLT2i for additional BG control and weight loss, however with patient's persistent yeast infections, this would not be an appropriate option at this time; may discuss at future visits if yeast infections resolve, patient would likely benefit due to CHF and proteinuria; despite not having SMBG to review, patient experiencing hyperglycemia sx, not following healthy diet, and now utilizing a CGM, feel patient would benefit from increasing dose of Tresiba to lower BG; patient can connect [employer] profile to PharmD for PharmD to review CGM report; patient continuing to pursue bariatric surgery but needing to be nicotine free prior to surgery, which patient is still working on decreasing; renal fxn and LFTs sufficient for use. INCREASE Tresiba to 110 units BID Patient to notify PharmD of any hypoglycemia CONTINUE Humalog 48 units + SSl TID AC, Trulicity 4.5 mg weekly, and metformin ER 2000 mg daily Advised patient to call [employer] (telephone number on back of reader) to inquire about getting a replacement sensor PharmD will re-send invite to patient's email to connect on [employer] for CGM report sharing Patient to notify PharmD before next f/up visit if having any issues connecting on [employer] Recommended patient to reach out to PCP office to get topical or systemic antifungal treatment for current yeast infections Educated patient that baby powder will only help try to keep skin folds dry but will not do anything to treat infection Educated patient about monitoring portion sizes of fruit intake, although preferable over desserts and other sweets, a large intake of fruits is still likely to increase BG ACEi/ARB for renal protection: yes, Scr and K sufficient for use Statin: yes, LFTs WNL HbA1c: due 06/18/22 - will order Patient is scheduled to see PCP on 06/18/22. Patient to have PharmD f/u on 05/02/22 at 11:00 am for a phone visit. Patient verbalized understanding of instructions. Leena Salinas PharmD PGY1 Bandage Winding Machine Operator The majority of the pharmacy visit (> 50%) was spent counseling and/or coordinating care for the patient. interaction: telephonic time was 26 minutes. documented in this encounterKettering Health Behavioral [facility] Center04-20-2022 Miscellaneous Notes Telephone Encounter - Keyonna Gross LPN - 03/20/2022 11:04 AM EDT Spoke with pt and information listed below given. Pt verbalizes understanding. Transferred to maintenance scheduler. Keyonna Gross LPN Telephone Encounter - Cass Chambers Cma - 03/20/2022 8:54 AM EDT No answer and no VM will need to try back later Cass Chambers Cma elephone Encounter - Hallie Martinez APRN.CNP - 03/20/2022 8:15 AM EDT Please call patient and let her know her A1c has increased to 10.8. Needs to reschedule with clinical pharmacist for appointment. Please assist in scheduling. The rest of her blood work is in acceptable ranges. Recheck in 3 months. Hallie Martinez APRN.CNP documented in this encounterKettering Health Behavioral Medical Center04-19-2022 NoteC[facility]innati [facility] Center04-19-2022 History of Present illness NarrativeHallie Martinez APRN.CNP - 03/19/2022 10:15 AM EDT 03/19/2022 Patient presents with: F/U 3 Month SUBJECTIVE: This is a 46 year old that is here today for Above Complaints. Since last office vist has been in good health without ER visits or hospitalizations. DIABETES MELLITUS: Since her last visit she denies chest pain or dyspnea , new or unusual visual symptoms, low sugar/hypoglycemic reactions, weight loss/gain, lightheadedness/dizziness and bowel changes/loose stools. Follows a diabetic diet most of the time, tries to follow diabetic diet- but does admit to drinking soda and eating fruit. She is compliant with medication(s) and is tolerating med(s) without any side effects. She reports checking her glucose on a three times a day schedule with sugars in the 200-300 range. Patient's last HgA1C was Hemoglobin A1C (%) Date Value 12/12/2021 10.0 08/01/2021 12.8 ) Last Ophthalmology exam: has appointment for eye exam Missed follow-up appointment with clinical pharmacist. Reports never heard back from her to reschedule. Admits has been drinking soda again and knows if she could stop this would help her blood sugars Reports feet have been hurting her more recently. Taking more than prescribed dose of gabapentin. Taking 300 mg of gabapentin in afternoon instead of the prescribed 100 mg. Reports in the past she has used her mother's 800 mg tablets and for some reason those seemed to work better than (3) 300 mg tablets HTN: Patient is compliant with meds Yes Monitors bp at home: Yes. Denies side effects: No. Chest pain: No. Dyspnea: No. Edema: At times. Palpitations: No. Syncope: No. Headache: No. Dizziness: No. LOGAN: waiting for new CPAP as her other one got water in it. Following with pulmonology in [place]. Continues to wear O2 continuously 2L at rest and 4L with exertion. Admits to SOB with exertion. Deniesdyspnea, coughing or wheezing HYPERLIPIDEMIA: Patient is taking medications: Yes. Patient is watching diet: somewhat. Patient denies myalgias: Yes. Patient denies gi upset: Yes Reports some pressure with urinating the last couple of days. Admits to urinary frequency as well. Denies urinary urgency, abdominal/back pain or hematuria Component Latest Ref Rng & Units 03/19/2022 GLUCOSE UA (POCT) Negative mg/dL 500 (A) BILIRUBIN UA (POCT) Negative Negative KETONE UA (POCT) Negative mg/dL Negative SPECIFIC GRAVITY UA (POCT) 1.005 - 1.030 1.020 HEMOGLOBIN/BLOOD UA (POCT) Negative Negative PH UA (POCT) 4.5 - 8.0 7.0 PROTEIN UA (POCT) Negative mg/dL Negative UROBILINOGEN UA (POCT) Normal E.U./dL 0.2 NITRITE UA (POCT) Negative Negative LEUKOCYTES UA (POCT) Negative Negative COLOR UA (POCT) Yellow CLARITY UA (POCT) Clear PAST MEDICAL HISTORY Diagnosis Date Abscess of right groin 04/07/2014 Acute diastolic heart failure ([facility]) 01/2022 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[facility]) 07/2019 Left, small lesion on CT Anxiety Cholecystitis s/p cholecystectomy Diabetes mellitus without mention of complication Diabetic neuropathy ([facility]) Seeing Neurology GERD (gastroesophageal reflux disease) History of abnormal cervical Pap smear History of tobacco use Hyperlipidemia Insomnia Microalbuminuria Morbid obesity (HCC) Narcotic abuse (HCC) Non-STEMI (non-ST elevated myocardial infarction) ([facility]) 2/2 respiratory illness LOGAN (obstructive sleep apnea) using CPAP Pulmonary embolism ([facility]) Seasonal allergies Unspecified essential hypertension ALLERGIES Flexeril [Cyclobenzaprine Hcl] and Zoloft [Sertraline] MEDICATIONS Current Outpatient Medications Medication Sig insulin lispro (HUMALOG KWIKPEN INSULIN) 100 unit/mL Inject 48 units plus sliding scale three timesdaily before meals (Sliding scale: 2 units for every 50 points >150; TDD 150 units) insulin degludec (TRESIBA FLEXTOUCH U-200) 200 unit/mL (3 mL) injection Inject 100 Units subcutaneously twice daily. This replaces Levemir. lisinopril (ZESTRIL, PRINIVIL) 10 mg tablet Take 1 tablet by mouth once daily. omeprazole (PRILOSEC) 40 mg capsule Take 1 capsule by mouth once daily. flash glucose scanning reader (CymbetSTYLE DOMENICO 14 DAY READER) 1 Device four times daily. flash glucose sensor (FREESTYLE DOMENICO 14 DAY SENSOR) kit 1 Each once daily. Use 1 device for up to 14 days to monitor sugars 4 times per day. apixaban (ELIQUIS) 5 mg tab(s) Take 1 tablet by mouth twice daily. atorvastatin (LIPITOR) 80 mg tablet Take 1 tablet by mouth once daily. dilTIAZem CD (CARDIZEM CD) 120 mg 24 hr capsule Take 1 capsule by mouth once daily. fenofibrate nanocrystallized (TRICOR) 145 mg tablet Take 1 tablet by mouth once daily. metoprolol succinate ER (TOPROL XL) 25 mg 24 hr tablet Take 1 tablet by mouth once daily. gabapentin (NEURONTIN) 300 mg capsule Take three tablets in the AM, One tablet in the afternoon andthree tablets in the evening predniSONE (DELTASONE) 10 mg tablet Take 4 tabs for 3 days, take 3 tabs for 3 days, take 2 tabs for3 days, and take 1 tab for 3 days traMADol (ULTRAM) 50 mg tablet PRN for pain WALKER ROLLATOR SEAT WITH 6 WHEELS - RED Patient requires large seat Shower Chair with Back once daily. Use as directed furosemide (LASIX) 40 mg tablet Take 1-2 tablets BID for lower extremity edema Lancets lancets Use to check blood sugars four times daily as instructed blood sugar diagnostic (FREESTYLE PRECISION TABITHA STRIPS) test strip To use 4 times daily to monitor glucose. Dx: uncontrolled type II DM, on insulin cholecalciferol, Vitamin D3, (VITAMIN D3) 1,250 mcg (50,000 unit) cap capsule Take 1 capsule by mouth one time a week. For 12 weeks blood sugar diagnostic (BLOOD GLUCOSE TEST) test strip Test blood sugar four times daily diagnosis e11.42 insulin: yes potassium chloride 20 mEq TbER Take 1 tablet by mouth twice daily. loratadine (CLARITIN) 10 mg tablet Take 1 tablet by mouth once daily. dulaglutide (TRULICITY) 4.5 mg/0.5 mL pen injector Inject 4.5 mg subcutaneously one time a week. multivitamin tablet Take 1 tablet by mouth once daily. metFORMIN ER (GLUCOPHAGE XR) 500 mg 24 hr tablet Take 4 tablets by mouth every morning. insulin needles, DISPOSABLE, (UNIFINE PENTIPS) 31 gauge x 5/16 use with insulin albuterol (PROVENTIL) 2.5 mg /3 mL (0.083 %) nebulizer solution Use 3 mL via nebulizer every 2 hours as needed for Wheezing/Shortness of Breath. Use over 5-15minutes. famotidine (PEPCID) 20 mg tablet Take 1 tablet by mouth at bedtime as needed. COMPOUNDED PRESCRIPTION Serum Gabaketo LP:Gabapentin 10%, Ketoprofen 10%, Lidocaine 2%, Prilocaine 2% SIG: Apply 2-5 drops to area of pain 2-4 times daily PRN, massaging in well. Repeat after 10 min. COMPOUNDED PRESCRIPTION Diclo CVLP: Diclofenac 2%, Colchicine 0.01%, Verapamil 5%, Lidocaine 2%, Prilocaine 2% SIG: Apply 1-2 pumps to area of pain BID - QID PRN, massaging in well. Repeat after 10 min. Compression Knee Highs KNEE HIGH COMPRESSION STOCKINGS 20-30 MM. DX: EDEMA, lymphedema, venous insufficiency (Patient not taking: Reported on 01/23/2022 ) COMPOUNDED PRESCRIPTION Wedge pillow to be used nightly to elevate head for LOGAN Dx: LOGAN Current Facility-Administered Medications Medication Dose Route Frequency perflutren lipid microspheres 1.3 mL in NaCl (PF) 0.9% 10 mL injection (DEFINITY) INTRAVENOUS DIRECTED PRN sodium chloride 0.9 % (flush) 10 mL (BD POSIFLUSH) 10 mL INTRAVENOUS DIRECTED PRN Medications and allergies reviewed by this provider. SOCIAL HISTORY Social History Tobacco Use Smoking status: Former Smoker Packs/day: 1.00 Years: 21.00 Pack years: 21.00 Types: Cigarettes Smokeless tobacco: Never Used Tobacco comment: d/c x2 wks Vaping Use Vaping Use: Former Substance Use Topics Alcohol use: Yes Alcohol/week: 0.0 standard drinks Comment: rarely Drug use: No REVIEW OF SYSTEMS All other reviewed and negative other than HPI. OBJECTIVE: BP 140/82 Pulse 83 Resp 20 Wt (!) 168.6 kg (371 lb 12.8 oz) LMP 10/10/2016 SpO2 97% BMI 62.70 kg/m . Vital signs reviewed by this provider. APPEARANCE Well appearing, alert, in no acute distress, well-hydrated, well nourished. and Morbidly obese EYES PERRLA, conjunctiva and sclera normal. HEART RRR with normal S1 and S2, no murmurs, no gallops, no JVD appreciated LUNG clear to auscultation. No wheezes, rhonchi, or rales EXTREMITIES Extremities normal, No deformities, No skin discoloration. Trace pedal edema SKIN Skin color, texture, turgor normal, no suspicious rashes or lesions to exposed skin Component Latest Ref Rng & Units 12/12/2021 Cholesterol, Total <200 mg/dL 134 Triglyceride <150 mg/dL 261 (H) HDL Cholesterol >39 mg/dL 34 (L) LDL Cholesterol <100 mg/dL 48 Non HDL Cholesterol <130 mg/dL 100 Fasting Time hrs 12 VLDL Cholesterol <30 mg/dL 52 (H) TC:HDL Ratio <5.10 3.94 LDL:HDL Ratio <2.54 1.41 Component Latest Ref Rng & Units 01/23/2022 Glucose 74 - 99 mg/dL 441 (H) BUN 7 - 21 mg/dL 21 Creatinine 0.58 - 0.96 mg/dL 0.75 Sodium 136 - 144 mmol/L 134 (L) Potassium 3.7 - 5.1 mmol/L 4.6 Chloride 97 - 105 mmol/L 90 (L) CO2 22 - 30 mmol/L 33 (H) Anion Gap 9 - 18 mmol/L 11 Calcium 8.5 - 10.2 mg/dL 10.0 eGFR- >60 eGFR-All Other Races . >60 DILATED RETINAL EXAM Never done TWO PNEUMOVAX 5 YEARS APART PRIOR TO AGE 65(2) due on 08/31/2016 MAMMOGRAM due on 10/09/2018 DEPRESSION SCREENING due on 02/14/2022 HBA1C due on 03/12/2022 URINE ALBUMIN:CREATININE RATIO due on 08/01/2022 LDL CHOLESTEROL due on 12/12/2022 BP CONTROLLED (<130/80) due on 12/12/2022 DIABETIC FOOT EXAM due on 01/23/2023 ANNUAL PCP TEAM CHRONIC DISEASE VISIT due on 03/19/2023 PAP TESTING due on 04/30/2023 HPV TESTING due on 04/30/2023 DTAP,TDAP,TD(2 - Td or Tdap) due on 07/01/2027 ADULT PREVNAR-13 Completed INFLUENZA Completed HEPATITIS C SCREENING Completed HIV SCREENING Completed COVID-19 VACCINE Completed MENINGOCOCCAL CONJUGATE Aged Out ASSESSMENT/PLAN: 1. Type 2 diabetes mellitus with diabetic polyneuropathy, with long-term current use of insulin (HCC) - ICD9: 250.60, 357.2, V58.67, ICD10: E11.42, Z79.4 (primary diagnosis) - discussed with her she needs to call and reschedule he appointment with clinical pharmacist, verbalizes understanding - Continue current medications - Blood glucose monitoring on a three times a day schedule - Encouraged regular aerobic exercise and weight loss - Follow up in 3 months, sooner should any other issues arise. 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 - BP goal of <130/80 - LDL goal of <100 - HGB A1C - GABAPENTIN 800 MG TABLET - COMP METABOLIC PANEL - discussed with patient she needs to take her gabapentin as ordered and not adjust her own dosages.Also discussed she should not be taking another persons prescribed medication, verbalizes understanding - work on weight loss and better blood sugar control 2. Dysuria - ICD9: 788.1, ICD10: R30.0 acute - no red flag symptoms or exam findings - red flag symptoms discussed, verbalizes understanding - UA DIP, URINE (POC) - follow-up if symptoms persist 3. LOGAN (obstructive sleep apnea) - ICD9: 327.23, ICD10: G47.33 - follow-up with pulmonology as recommended - encouraged compliance with PAP therapy once she gets her replacement 4. Essential hypertension - ICD9: 401.9, ICD10: I10 - suboptimal control - Continue current medication(s) - Encouraged dietary sodium restriction/DASH diet - Recommended regular aerobic exercise. - Recommend home blood pressure monitoring, to bring results in on next visit - Discussed need and benefit for weight loss. - Recheck in 3 months, sooner should new symptoms or problems arise. - Goal of BP <130/80 - Patient counselled on smoking cessation. - Recommended no refined sugar, low refined starch, healthy oil intake (olive oil), healthy protein (fish) along the lines of the Mediterranean diet. 5. Chronic respiratory failure with hypoxia (HCC) - ICD9: 518.83, 799.02, ICD10: J96.11 - continue oxygen as ordered - follow-up with pulmonology as recommended 6. Hyperlipidemia, unspecified hyperlipidemia type - ICD9: 272.4, ICD10: E78.5 - good control - Continue current medication. - Encouraged following a low fat, low cholesterol diet. - Discussed the benefits of regular aerobic exercise and weight loss. - Follow up in 3 months. - Encouraged following a low carbohydrate, healthy oil intake diet. Hallie Martinez APRN.MORTGAGE PROFESSIONAL Prescription instructions reviewed with patient as applicable. Patient advised if symptoms do not improve or if symptoms worsen sooner, to contact their primary care physician. Potential red flag symptoms discussed with the patient. Reviewed appropriate action plan to take if red flag symptoms occur. Patient agreeable to treatment plan. documented in this encounterK[facility]04[facility] Miscellaneous Notes Telephone Encounter - Sandra Potts LPN - 03/05/2022 1:23 PM EDT Patient telephoned and made aware. Sandra Potts LPN elephone Encounter - Panfilo Oreilly MD - 03/05/2022 1:06 PM EDT rx for Humalog sent. Continue same dosage as Novolog. elephone Encounter - Diana Mackenzie LPN - 03/05/2022 10:28 AM EDT Meghan from [email or web address] calling patient insurance requesting Novolog insulin be changed to Humalog asking for new rx to be sent to pharmacy. Please advise documented in this encounterK[facility]03-02-2022 Miscellaneous Notes Telephone Encounter - Sandra Potts LPN - 01/30/2022 11:27 AM EST Pt called and made aware. Prescription placed in medical records for pickup. Sandra Potts LPN Telephone Encounter - Marianne Grier RN - 01/30/2022 8:38 AM EST Patient calls to check on status of request for handicapped placard. 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 Please call patient when available at [phone]. Marianne Grier RN Telephone Encounter - Panfilo Oreilly MD - 01/29/2022 2:39 PM EST Order for handicap placard printed and signed. In my outbox to be faxed or picked up. elephone Encounter - Idalia Milton - 01/29/2022 2:04 PM EST Macario Overton is calling Panfilo Oreilly MD today to request a prescription for a handicap placard. Patient would like the prescription left at the front desk agent. No chief complaint on file. 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 Was an appointment scheduled: No: Closing statement: Results or non-symptom based questions: Thank you for calling [facility], your call will be returned within the next business day. Idalia Gongoraectronically signed by Idalia Milton at 01/29/2022 2:06 PM EST documented in this encounterK[facility]02-28-2022 Miscellaneous Notes Telephone Encounter - Sandra Potts LPN - 01/28/2022 2:33 PM EST Pt telephoned and message below given. Voiced understanding. Will call back with update in 1 week. Sandra Potts LPN elephone Encounter - Sandra Potts LPN - 01/25/2022 12:34 PM EST Pt telephoned. Unable to leave message due to VM not set up yet. elephone Encounter - Hallie Martinez APRN.CNP - 01/25/2022 11:49 AM EST Can add 300 mg of gabapentin in the afternoon so she will take (3) 300 mg tablets in the AM (1) 300 mg tablet in the afternoon and (3) 300 mg tablets in the evening. Update me in one week with how thisis working. Diflucan sent to pharmacy- one tablet today for one dose, repeat in three days if needed. Hallie Martinez APRN.CNP documented in this encounterKet[facility]02-25-2022 Miscellaneous Notes Telephone Encounter - Hallie Martinez APRN.NIKIA - 01/25/2022 11:59 AM EST Thank you HallieElectronedmund signed by Hallie Martinez APRN.CNP at 01/25/2022 11:59 AM ESTTelephone Encounter - Sandra Potts LPN - 01/25/2022 11:49 AM EST There was. I refaxed and advised her to call Ashlyn back later today. Sandra Potts LPN Telephone Encounter - Hallie Martinez APRN.CNP - 01/25/2022 11:42 AM EST There should have been an order for compression stockings along with the shower chair and walker Hallie Martinez APRN.NIKIA elephone Encounter - Sandra Potts LPN - 01/25/2022 11:24 AM EST Pt telephoned. [facility] didn't receive orders yet. Pt requesting compression stockings be faxed to [facility]. All orders refaxed and faxed at this time. Sandra Potts LPN Telephone Encounter - Idalia Milton - 01/25/2022 10:49 AM EST Patient calling in today regarding the walker, compression stockings and shower chair. Patient is asking about the status of the items. Please return call to patient with update documented in this encounterKet[facility]02-25-2022 Miscellaneous NotesTelephone Encounter - Nita Abbott - 01/25/2022 10:40 AM EST Macario Overton is calling Panfilo Oreilly MD today Patient had a virtual appointment today with the pharmacist and it was recommend she contact PCP to request an increase in her gabapentin She's having a lot pain in her feet and legs. Patient is also asking for Diflucan for yeast infection. Please send scripts to [facility] documented in this encounterK[facility]02-23-2022 Miscellaneous NotesTelephone Encounter - Hallie Martinez APRN.CNP - 01/23/2022 4:35 PM EST Please fax orders for compression hose, wheeled walker and shower chair to [facility] [place]. Orders in my outbox documented in this encounterKet[facility]02-14-2022 Miscellaneous Notes Telephone Encounter - Silvino Martinez LPN - 01/14/2022 5:30 PM EST [facility] 12/12/21 NOV 03/15/22 Telephone Encounter - Kristine Marmolejo Pss - 01/14/2022 4:55 PM EST Patient has been identified by name and date of : Yes Pending Prescriptions Disp Refills FUROSEMIDE 40 MG TABLET 5 Sig: Take 1 tablet by mouth twice daily. RIKKI: No RX INSTRUCTIONS: Please note: MED UPDATE ON 12/12/21 - HOWEVER, she stated she takes 1-2 tablets, twice daily. Please update prescription and send to the Pharmacy. Patient aware RX will be sent to pharmacy. No need to notify patient. Kristine Marmolejo Pss documented in this encounterKet[facility]07-20-2021 Miscellaneous Notes Telephone Encounter - Esthela Weeks LPN - 06/19/2021 3:13 PM EDT Prior Authorization has been completed online at [employer] for Angelo Gore, will await response. [place]- [id number] Please keep encounter open until final decision has been received and documented from insurance company. Adalgisa Weeks LPN documented in this encounterKet[facility]12-07-2007 History of Past illness Narrative Problem Noted Date Resolved Date Acute cholecystitis 11/06/2007 11/20/2021 documented as of this encounter (statuses as of 02/26/2022)[facility] History of Past illness Narrative Problem Noted Date Resolved Date Acute cholecystitis 11/06/2007 11/20/2021 documented as of this encounter (statuses as of 03/19/2022)[facility] 11-06-[facility] History of Past illness Narrative Problem Noted Date Resolved Date Acute cholecystitis 11/06/2007 11/20/2021 documented as of this encounter (statuses as of 03/20/2022)[facility] 11-06-[facility] History of Past illness Narrative Problem Noted Date Resolved Date Acute cholecystitis 11/06/2007 11/20/2021 documented as of this encounter (statuses as of 03/20/2022)[facility] 11-06-[facility] History of Past illness Narrative Problem Noted Date Resolved Date Acute cholecystitis 11/06/2007 11/20/2021 documented as of this encounter (statuses as of 03/20/2022)[facility] 11-06-[facility] History of Past illness Narrative Problem Noted Date Resolved Date Acute cholecystitis 11/06/2007 11/20/2021 documented as of this encounter (statuses as of 03/20/2022)[facility] History of Past illness Narrative Problem Noted Date Resolved Date Acute cholecystitis 11/06/2007 11/20/2021 documented as of this encounter (statuses as of 03/20/2022)[facility] 11-06-[facility] History of Past illness Narrative Problem Noted Date Resolved Date Acute cholecystitis 11/06/2007 11/20/2021 documented as of this encounter (statuses as of 03/28/2022)[facility] 11-06-[facility] History of Past illness Narrative Problem Noted Date Resolved Date Acute cholecystitis 11/06/2007 11/20/2021 documented as of this encounter (statuses as of 03/29/2022)[facility] 11-06-[facility] History of Past illness Narrative Problem Noted Date Resolved Date Acute cholecystitis 11/06/2007 11/20/2021 documented as of this encounter (statuses as of 04/02/2022)[facility] 11-06-[facility] History of Past illness Narrative Problem Noted Date Resolved Date Acute cholecystitis 11/06/2007 11/20/2021 documented as of this encounter (statuses as of 04/03/2022)[facility] 11-06-[facility] History of Past illness Narrative Problem Noted Date Resolved Date Acute cholecystitis 11/06/2007 11/20/2021 documented as of this encounter (statuses as of 04/10/2022)[facility] 11-[facility] History of Past illness Narrative Problem Noted Date Resolved Date Acute cholecystitis 11/06/2007 11/20/2021 documented as of this encounter (statuses as of 05/01/2022)[facility] 11-06-[facility] History of Past illness Narrative Problem Noted Date Resolved Date Acute cholecystitis 11/06/2007 11/20/2021 documented as of this encounter (statuses as of 05/02/2022)[facility] History of Past illness Narrative Problem Noted Date Resolved Date Acute cholecystitis 11/06/2007 11/20/2021 documented as of this encounter (statuses as of 06/03/2022)[facility] 11-06-[facility] History of Past illness Narrative Problem Noted Date Resolved Date Acute cholecystitis 11/06/2007 11/20/2021 documented as of this encounter (statuses as of 06/05/2022)[facility] 11-06-[facility] History of Past illness Narrative Problem Noted Date Resolved Date Acute cholecystitis 11/06/2007 11/20/2021 documented as of this encounter (statuses as of 06/13/2022)[facility] 11-06-[facility] History of Past illness Narrative Problem Noted Date Resolved Date Acute cholecystitis 11/06/2007 11/20/2021 documented as of this encounter (statuses as of 2022)[facility] History of Past illness Narrative Problem Noted Date Resolved Date Acute cholecystitis 11/06/2007 11/20/2021 documented as of this encounter (statuses as of 06/28/2022)[facility] History of Past illness Narrative Problem Noted Date Resolved Date Acute cholecystitis 11/06/2007 11/20/2021 documented as of this encounter (statuses as of 06/28/2022)[facility] History of Past illness Narrative Problem Noted Date Resolved Date Acute cholecystitis 11/06/2007 11/20/2021 documented as of this encounter (statuses as of 07/03/2022)[facility] 11-06-[facility] History of Past illness Narrative Problem Noted Date Resolved Date Acute cholecystitis 11/06/2007 11/20/2021 documented as of this encounter (statuses as of 07/11/2022)[facility] History of Past illness Narrative Problem Noted Date Resolved Date Acute cholecystitis 11/06/2007 11/20/2021 documented as of this encounter (statuses as of 07/19/2022)[facility] History of Past illness Narrative Problem Noted Date Resolved Date Acute cholecystitis 11/06/2007 11/20/2021 documented as of this encounter (statuses as of 07/24/2022)[facility] History of Past illness Narrative Problem Noted Date Resolved Date Acute cholecystitis 11/06/2007 11/20/2021 documented as of this encounter (statuses as of 07/27/2022)[facility] History of Past illness Narrative Problem Noted Date Resolved Date Acute cholecystitis 11/06/2007 11/20/2021 documented as of this encounter (statuses as of 08/01/2022)[facility] History of Past illness Narrative Problem Noted Date Resolved Date Acute cholecystitis 11/06/2007 11/20/2021 documented as of this encounter (statuses as of 08/01/2022)[facility] History of Past illness Narrative Problem Noted Date Resolved Date Acute cholecystitis 11/06/2007 11/20/2021 documented as of this encounter (statuses as of 08/16/2022)[facility] 11-06-[facility] History of Past illness Narrative Problem Noted Date Resolved Date Acute cholecystitis 11/06/2007 11/20/2021 documented as of this encounter (statuses as of 08/27/2022)[facility] History of Past illness Narrative Problem Noted Date Resolved Date Acute cholecystitis 11/06/2007 11/20/2021 documented as of this encounter (statuses as of 09/10/2022)[facility] 11-06-[facility] History of Past illness Narrative Problem Noted Date Resolved Date Acute cholecystitis 11/06/2007 11/20/2021 documented as of this encounter (statuses as of 10/01/2022)[facility] History of Past illness Narrative Problem Noted Date Resolved Date Acute cholecystitis 11/06/2007 11/20/2021 documented as of this encounter (statuses as of 10/04/2022)[facility] History of Past illness Narrative Problem Noted Date Resolved Date Acute cholecystitis 11/06/2007 11/20/2021 documented as of this encounter (statuses as of 10/18/2022)[facility] History of Past illness Narrative Problem Noted Date Resolved Date Acute cholecystitis 11/06/2007 11/20/2021 documented as of this encounter (statuses as of 10/22/2022)[facility] 11-06-2007 History of Past illness Narrative Problem Noted Date Resolved Date Acute cholecystitis 11/06/2007 11/20/2021 documented as of this encounter (statuses as of 10/22/2022)[facility] 11-06-2007 History of Past illness Narrative Problem Noted Date Resolved Date Acute cholecystitis 11/06/2007 11/20/2021 documented as of this encounter (statuses as of 10/22/2022)[facility] 11-06-2007 History of Past illness Narrative Problem Noted Date Resolved Date Acute cholecystitis 11/06/2007 11/20/2021 documented as of this encounter (statuses as of 10/30/2022)[facility] 11-06-2007 History of Past illness Narrative Problem Noted Date Resolved Date Acute cholecystitis 11/06/2007 11/20/2021 documented as of this encounter (statuses as of 11/05/2022)[facility] 11-06-2007 History of Past illness Narrative Problem Noted Date Resolved Date Acute cholecystitis 11/06/2007 11/20/2021 documented as of this encounter (statuses as of 11/06/2022)[facility] 11-06-2007 History of Past illness Narrative Problem Noted Date Resolved Date Acute cholecystitis 11/06/2007 11/20/2021 documented as of this encounter (statuses as of 11/11/2022)[facility] 11-06-2007 History of Past illness Narrative Problem Noted Date Resolved Date Acute cholecystitis 11/06/2007 11/20/2021 documented as of this encounter (statuses as of 11/11/2022)[facility] 11-06-2007 History of Past illness Narrative Problem Noted Date Resolved Date Acute cholecystitis 11/06/2007 11/20/2021 documented as of this encounter (statuses as of 12/04/2022)[facility] 11-06-2007 History of Past illness Narrative Problem Noted Date Resolved Date Acute cholecystitis 11/06/2007 11/20/2021 documented as of this encounter (statuses as of 12/06/2022)[facility] 11-06-2007 History of Past illness Narrative Problem Noted Date Resolved Date Acute cholecystitis 11/06/2007 11/20/2021 documented as of this encounter (statuses as of 12/12/2022)[facility] 11-06-2007 History of Past illness Narrative Problem Noted Date Resolved Date Acute cholecystitis 11/06/2007 11/20/2021 documented as of this encounter (statuses as of 12/13/2022)[facility] 11-06-2007 History of Past illness Narrative Problem Noted Date Resolved Date Acute cholecystitis 11/06/2007 11/20/2021 documented as of this encounter (statuses as of 12/25/2022)[facility] 11-06-2007 History of Past illness Narrative Problem Noted Date Resolved Date Acute cholecystitis 11/06/2007 11/20/2021 documented as of this encounter (statuses as of 12/25/2022)[facility] 11-06-2007 History of Past illness Narrative Problem Noted Date Resolved Date Acute cholecystitis 11/06/2007 11/20/2021 documented as of this encounter (statuses as of 12/30/2022)[facility] 11-06-2007 History of Past illness Narrative Problem Noted Date Resolved Date Acute cholecystitis 11/06/2007 11/20/2021 documented as of this encounter (statuses as of 12/31/2022)[facility] 11-06-2007 History of Past illness Narrative Problem Noted Date Resolved Date Acute cholecystitis 11/06/2007 11/20/2021 documented as of this encounter (statuses as of 01/02/2023)[facility] 11-06-2007 History of Past illness Narrative Problem Noted Date Resolved Date Acute cholecystitis 11/06/2007 11/20/2021 documented as of this encounter (statuses as of 01/02/2023)[facility] 11-06-2007 History of Past illness Narrative Problem Noted Date Resolved Date Acute cholecystitis 11/06/2007 11/20/2021 documented as of this encounter (statuses as of 01/03/2023)[facility] 11-06-2007 History of Past illness Narrative Problem Noted Date Resolved Date Acute cholecystitis 11/06/2007 11/20/2021 documented as of this encounter (statuses as of 01/07/2023)[facility] 11-06-2007 History of Past illness Narrative Problem Noted Date Resolved Date Acute cholecystitis 11/06/2007 11/20/2021 documented as of this encounter (statuses as of 01/07/2023)[facility] 11-06-2007 History of Past illness Narrative Problem Noted Date Resolved Date Acute cholecystitis 11/06/2007 11/20/2021 documented as of this encounter (statuses as of 01/13/2023)[facility] 11-06-2007 History of Past illness Narrative Problem Noted Date Resolved Date Acute cholecystitis 11/06/2007 11/20/2021 documented as of this encounter (statuses as of 01/14/2023)[facility] 11-06-2007 History of Past illness Narrative Problem Noted Date Resolved Date Acute cholecystitis 11/06/2007 11/20/2021 documented as of this encounter (statuses as of 01/15/2023)[facility] Evaluation note Diagnosis Chronic diastolic heart failure (HCC) Chronic diastolic heart failure [facility] Type 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, with long-term current use of insulin (HCC)- Primary Dysuria LOGAN (obstructive sleep apnea) 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 (adult) (pediatr ic) Essential hypertension Unspecified essential hypertension Chronic respiratory failure with hypoxia (HCC) Chronic respiratory failure Hyperlipidemia, unspecified hyperlipidem ia type [facility] Diagnosis Chronic diastolic heart failure (HCC)- P rimary Chronic diastolic heart failure [facility] Diagnosis Vaginal rasta Candidiasis of vulva and vagina Type 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, with long-term current use of insulin (HCC) [facility] [place] [facility] Diagnosis Type 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, with long-term current use of insulin (HCC)- Primary [facility] [place] [facility] Diagnosis Type 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, with long-term current use of insulin (HCC) [facility] [place] [facility] Diagnosis Type 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, with long-term current use of insulin (HCC) [facility] Diagnosis Type 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, with long-term current use of insulin (HCC)- Primary [facility] Diagnosis Encounter for screening mammogram for br east cancer documented [facility] Diagnosis Chronic diastolic heart failure (HCC) Chronic diastolic heart failure Type 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, with long-term current use of insulin (HCC) [facility] [place] [facility] Diagnosis Type 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, with long-term current use of insulin (HCC) Acute pulmonary embolism without acute c or pulmonale, unspecified pulmonary embolism type (HCC) Bacterial pneumonia Bacterial pneumonia, unspecified Hyperlipidemia, unspecified hyperlipidem ia type Ischemia of heart, chronic Chronic ischemic heart disease, unspecif ied GERD without esophagitis Esophageal reflux Chronic diastolic heart failure (HCC) Chronic diastolic heart failure Essential hypertension Unspecified essential hypertension Tachycardia Tachycardia, unspecified documented [facility] [place] encounterC[facility] ClinicEvaluation [facility] Diagnosis Screening for colon cancer- Primary Special screening for malignant neoplasm s, colon Chest pain, unspecified type Morbid obesity (HCC) Morbid obesity [facility] [place] [facility] Diagnosis Type 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, with long-term current use of insulin (HCC)- Primary documented [facility] Diagnosis Chronic diastolic heart failure (HCC) Chronic diastolic heart failure Type 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, with long-term current use of insulin (HCC) documented in [place] encounterC[place] ClinicEvaluation [facility] Diagnosis Type 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, with long-term current use of insulin ([facility]) [facility] Diagnosis Acute diastolic CHF (congestive heart fa ilure) ([facility])- Primary Acute diastolic heart failure COPD with exacerbation ([facility]) Obstructive chronic bronchitis with exac erbation Bacterial pneumonia Bacterial pneumonia, unspecified Hypoxia Hypoxemia LOGAN treated with BiPAP Bilateral lower extremity edema Edema Type 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, with long-term current use of insulin ([facility]) Other chest pain Tremor Abnormal involuntary movements Tobacco use Tobacco use disorder [facility] Diagnosis Type 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, with long-term current use of insulin ([facility])- Primary History of tobacco use Personal history of tobacco use, present ing hazards to health documented in this encounterRol[facility] ClinicEvaluation note Diagnosis Onychomycosis- Primary Dermatophytosis of nail Pain in toe of left foot Pain in limb Pain in toe of right foot Pain in limb Other diabetic neurological complication associated with type 2 diabetes mellitus ([facility]) Hyperkeratosis Acquired keratoderma Chronic venous insufficiency Unspecified venous (peripheral) insuffic iency Diminished pulses in lower extremity Other symptoms involving cardiovascular system documented [facility] Diagnosis Strep pharyngitis- Primary Streptococcal sore throat Reactive airway disease with acute exace rbation, unspecified asthma severity, unspecified whether persistent Tremor Abnormal involuntary movements LOGAN treated with BiPAP Morbid obesity ([facility]) Morbid obesity Type 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, with long-term current use of insulin ([facility]) Episodic lightheadedness Dizziness and giddiness Dehydration documented in this encounterRoland ClinicEvaluation note Diagnosis KERRY (acute kidney injury) ([facility])- Primary Acute kidney failure, unspecified documented in this encounterRoland ClinicEvaluation note Diagnosis Acute diastolic CHF (congestive heart fa ilure) ([facility]) Acute diastolic heart failure Bilateral lower extremity edema Edema documented in [place] encounterC[place] ClinicEvaluation note Diagnosis Type 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, with long-term current use of insulin ([facility]) [facility] Diagnosis Type 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, with long-term current use of insulin ([facility]) Ischemia of heart, chronic Chronic ischemic heart disease, unspecif ied Tachycardia Tachycardia, unspecified Acute pulmonary embolism without acute c or pulmonale, unspecified pulmonary embolism type (HCC) Essential hypertension Unspecified essential hypertension Hyperlipidemia, unspecified hyperlipidem ia type documented in this encounterRoland ClinicEvaluation note Diagnosis Necrotizing soft tissue infection documented in [facility] encounterK[facility] Diagnosis Open wounds involving multiple regions o f lower extremity- Primary documented in this encounterK[facility] CenterEvaluation [facility] Diagnosis Abscess of groin, left- Primary Cellulitis and abscess of trunk Non-healing open wound of left groin, in itial encounter Necrotizing soft tissue infection Cellulitis of skin Cellulitis and abscess of unspecified si te Type 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, with long-term current use of insulin (HCC) documented in this encounterK[facility] CenterPatient[facility] home Plan of care note Visit Details Visit Type -SN SOC Discipline -Senior Care Problems Problem Description Start Date Status Goals Interventions Physician 02/23/2023 Active 1 goal linked to 1 goal i ntervention Specific scheduled/documente sched uled/documented Parameters d intervention in this visit Disciplines: Skilled Services Risk for Falls 02/23/2023 Active 1 goal linked to 1 goal inte rvention Disciplines: scheduled/documente schedule d/documented Skilled Services d intervention in t his visit Pain 02/23/2023 Active 1 goal linked to 1 goal inte rvention Disciplines: scheduled/documente schedule d/documented Skilled Services d intervention in t his visit Oxygen 02/23/2023 Active 1 goal linked to 1 goal inte rvention Disciplines: scheduled/documente schedule d/documented Skilled Services d intervention in t his visit SN Edema 02/23/2023 Active 1 goal linked to 1 goal inte rvention Disciplines: scheduled/documente schedule d/documented SN d intervention in this vi sit SN 02/23/2023 Active 1 goal linked to 2 goal i nterventions Integumentary/Wo scheduled/documente scheduled/documented unds d intervention in this visit Disciplines: SN SN Diabetes 02/23/2023 Active 1 goal linked to 1 goal inte rvention Disciplines: scheduled/documente schedule d/documented SN d intervention in this vi sit SN Learning 02/23/2023 Active 1 goal linked to 1 goal intervention Assessment scheduled/documente schedule d/documented Disciplines: d intervention in this visit SN Goals Goal Associated Problem Outcome Goal Met? Visit Not es Patient to maintain parameters Physician Specific No within physician-specified Parameters ranges throughout certification period Manage Risk for falls Risk for Falls No Description: Patient/caregiver will verbalize knowledge of individualized fall prevention strategies by 04/23/23. Manage Pain Pain No Description: Patient/caregiver will verbalize knowledge and understanding of appropriate techniques to control pain, including pain medication. Patient will verbalize or demonstrate an acceptable level of pain as evidenced by a pain score of 10/10 and improvement in ability to perform activities of daily living to be achieved by 04/23/23. Manage oxygen Oxygen No Description: Patient/caregiver will use oxygen safely and effectively in home by verbalizing and demonstrating oxygen safety by 04/23/23. Patient will have improved SN Edema No edema management Description: Patient/caregiver will demonstrate an understanding of edema management strategies as evidenced by resolution or stabilization of edema by 04/23/23. Patient/Caregiver will have SN Integumentary/Wounds No improved healing and be free of signs and symptoms of complications Description: Patient/caregiver will verbalize management strategies to promote wound healing & prevent complications as evidenced by improved healing & no complications by 04/23/23. Improved management of SN Diabetes No diabetes Description: Improve diabetic management as evidenced by patient/caregiver able to teach back diabetic management strategies by 04/23/23. Demonstrate understanding of SN Learning Assessment No education Description: Patient and/or caregiver will verbalize understanding of educational instruction provided throughout certification period. Interventions Intervention Associated Status Variance Visit Notes Problem/Goal SPO2 Problem:Physician Specific Parameters Completed Description: Goal:Patient to maintain parameters with in physician-specified ranges throughout certification period Stop activity if pulse ox is <92% at rest. Instruct on Problem:Risk for Falls Completed SN: P atient instructed individual fall risk Goal:Manage Risk for falls on Eliminating factors and Environmental H azards: strategies to prevent Keep p athways clear, falls and injuries Keep pets out of caused by falls. pathways an d Remove unsafe rugs Instruct on pain and Problem:Pain Completed patient instructed on instruct on Goal:Manage Pain techniques to control strategies to control pain i ncluding pain Pharmacological measures. Instruct on fire Problem:Oxygen Completed patient i nstructed on: safety and safe and Goal:Manage oxygen fi ndings of safety risk effective use of assessment, causes of oxygen in the home fires and firerisks for neighboring res idences and buildings. Instructed tracy ent NOT to smoke with o xygen may cause fie Assess and instruct Problem:SN Edema Completed tracy ent instructed on on measures to reduce Goal:Patient will have improved edema managem ent elevation. edema Wound Care: Perform Problem:SN Integumentary/Wounds Completed Completed by SN. wound care (2) Goal:Patient/Caregiver will have improve d healing and be free of signs and symptoms of complications Patient did to lerate Description: well. Wound Care Order: Wound location: left lower leg Wound type (etiology): Venous Ulcer Order: Clean with normal saline pat dry apply adaptic then calcium alginate, cover with foam dressing or dsd Frequency: daily Wound care to be completed by caregiver except for scheduled SN wound care visits. Measure wound/incision at least weekly. Okay to substitute comparable products from home care formulary. Wound Care: Perform Problem:SN Integumentary/Wounds Completed Completed by SN. wound care (1) Goal:Patient/Caregiver will have improve d healing and be free of signs and symptoms of complications Patient did to lerate Description: well. Wound Care Order: Wound location: Left pelvic perineum area Wound type (etiology): Abscess Order: Clean with normal saline pack with wet to dry cover with ABD pad and secure with tape Frequency: twice daily Wound care to be completed by caregiver except for scheduled SN wound care visits. Measure wound/incision at least weekly. Okay to substitute comparable products from home care formulary. Instruct on diabetes Problem:SN Diabetes Completed patient assessed and disease process and Goal:Improved management of diabetes instructed on diabetes management of chronic diseas e process condition Description: Patient has needs for education of diabetes. Instruct and educate Problem:SN Learning Assessment Completed patient verbalize on knowledge deficits Goal:Demonstrate understanding of education and/or demonstrate understanding o f nursing educati on completed today . Education metho ds include: verbal cues. Further educati on required to imp rove knowledge and compliance with fall prevention/home safety strategies, incision/wound care management, inf ection control precaut ions, integumentary c are management, med ication management and oxygen safety. 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 Visit Not es Patient will be referred to EFFICIENCY MANAGER Referral Completed Yes additional discipline as needed Interventions Intervention Associated Problem/Goal Status Variance Visi t Notes EFFICIENCY MANAGER evaluation and Problem:EFFICIENCY MANAGER Referral Completed treatment Goal:Patient will be referred to additional discipline as needed Description: EFFICIENCY MANAGER Referral eval and treat for Community [employer]. Patient states she is on waiver and is in need of an aide, electric, wheel chair, raised recliner states CM is working on these items [facility]) Diagnostic Procedure Only (Routine) - Pending Review Specialty Diagnoses / Procedures Referred By Contact Refer red To Contact BR IMAGING Diagnoses Encounter for screening mammogram for breast cancer Panfilo Oreilly MD Br Imaging Procedures SHERYL SCREENING SCREENING MAMMOGRAPHY BI 2-VIEW BREAST INC CAD [address] [place] [address] [id number] Referral ID Status Reason Start Expiration Visits Visits Date Date Requested Authorized [id number] Pending Auto-Generat 05/29/2022 06/28/2023 1 1 Review ed Referral [facility] (narrative)Outpatient Procedure (Routine) - Closed Specialty Diagnoses / Procedures Referred By Contact Refer red To Contact HEART AND VASCULAR Diagnoses Acute diastolic CHF (congestive heart failure) (HCC) Other chest pain Panfilo Oreilly, [facility] Procedures ECG COMPLETE ECG ROUTINE ECG W/LEAST 12 LDS W/I&R [address] [place], [place] [id number] [place] [id number] Referral ID Status Reason Start Date Expiration Date Visits V isits Requested Authorized [id number] Closed Auto-Generate 10/18/2022 10/18/2023 1 1 d Referral Diagnostic Procedure Only (Urgent) - Pending Review Specialty Diagnoses / Referred By Contact Referred To Contact Procedures MOLECULAR & Diagnoses Acute diastolic CHF (congestive heart failure) (HCC) Panfilo Oreilly [facility] Procedures NM CARDIAC PERF STRESS/PHARM MYOCARDIAL SPECT MULTIPLE STUDIES MD Dorys [facility] [address] [facility] [address] [place], [place] [id number] [place] [address] Referral ID Status Reason Start Expiration Visits Visits Date Date Requested Authorized [id number] Pending Auto-Generat 11/17/2023 1 1 Review ed Referral 2 Consult, Test, Treat (Routine) - Authorized Specialty Diagnoses / Procedures Referred By Contact Refer red To Contact Cardiology Diagnoses Acute diastolic CHF (congestive heart failure) (HCC) Panfilo Oreilly MD Procedures CONSULT TO CARDIOLOGY OFFICE/OUTPATIENT [facility] 60-74 MINUTES [address] [place] [id number] Referral ID Status Reason Start Expiration Visits Visits Date Date Requested Authorized [id number] Authorized PCP Requested 10/18/2023 1 1 Referral 2 [facility] for [facility] (narrative)Outpatient Procedure (Routine) - Pending Review Specialty Diagnoses / Procedures Referred By Contact Refer red To Contact HEART AND VASCULAR Diagnoses Onychomycosis Other diabetic neurological complication associated with type 2 diabetes mellitus (HCC) Diminished pulses in lower extremity [facility] Procedures PVR ANK PRESS TAY VAS LAB NON-INVAS PHYSIOLOGIC STD EXTREMITY ART 2 LEVEL [address] [place] [id number] [id number] [facility] [place] [address] Referral ID Status Reason Start Expiration Visits Visits Date Date Requested Authorized [id number] Pending Auto-Generat 11/06/2022 11/06/2023 1 1 Review ed [facility]narrative)Outpatient Procedure (Urgent) - Authorized Specialty Diagnoses / Referred By Contact Referred To Contact Procedures [facility] Diagnoses Tremor Bursley, Christopher [facility] [place] Procedures EPIL EEG ROUTINE ELECTROENCEPHALOGRAM REC COMA/SLEEP ONLY MD Dorys [address] [place] [address] [place] [address] Referral ID Status Reason Start Expiration Visits Visits Date Date Requested Authorized [id number] Authorized Auto-Generat 11/08/2022 11/08/2023 1 1 ed Referral Consult, Test, Treat (Routine) - Authorized Specialty Diagnoses / Procedures Referred By Contact Refer red To Contact Neurology Diagnoses Tremor Panfilo Oreilly MD Procedures CONSULT TO NEUROLOGY OFFICE/OUTPATIENT [facility] 60-74 MINUTES [address] [place] [address] Referral ID Status Reason Start Expiration Visits Visits Date Date Requested Authorized [id number] Authorized PCP Requested 11/08/2022 11/08/2023 1 1 Referral [facility] Advance Directives No Advanced Directives Records Found Documents on File Type Date Recorded Patient Careers Counsellor Explanati on Advance Directive(s) 02/05/2022 1:53 PM Advance Directive(s) 10/16/2021 9:28 AM Documents on File Type Date Recorded Patient Careers Counsellor Explanati on Advance Directive(s) 02/05/2022 1:53 PM Advance Directive(s) 10/16/2021 9:28 AM Latest Code Status on File Code Status Date Activated Date Inactivated Comments Full Code 02/25/2023 7:20 AM Latest Code Status on File Code Status Date Activated Date Inactivated Comments Full Code 02/25/2023 7:20 AM Reason for Referral Specialty Diagnoses / Procedures Referred By Contact Refer red To Contact Panfilo Oreilly MD [address] [place] [address] Referral ID Status Reason Start Date Expiration Date Visits Requ ested Visits Authorized [id number] Closed 1 1 Specialty Diagnoses / Procedures Referred By Contact Refer red To Contact Diagnoses Acute pulmonary embolism without acute cor pulmonale, unspecified pulmonary embolism type (HCC) Bacterial pneumonia Panfilo Oreilly MD [address] [place] [address] Referral ID Status Reason Start Date Expiration Date Visits Requ ested Visits Authorized [id number] Closed 1 1 Referral ID Status Reason Start Date Expiration Date Visits Requ ested Visits Authorized [id number] Closed 1 1 Summary Purpose Family History No Family History Records FoundNo Family History Records FoundNo Family History Records Found Medications Administered Section Inactive Administered Medications - up to 3 most recent administrations Medication Order MAR Action Action Date Dose Rate Site fentaNYL 50 mcg/mL 50 mcg Given 12/25/2022 1:07 AM EST 50 mcg Arm, Left injection (SUBLIMAZE) 50 mcg, INTRAVENOUS, ONCE, 1 dose, On Fri12/25/22 at 0300 Health Concerns Infection Onset Date Last Indicated Resolved Time COVID-19 Rule-Out 12/25/2022 12/25/2022 12/25/2022 4:0 3 AM EST Infection Onset Date Last Indicated Resolved Time COVID-19 Rule-Out 01/14/2023 01/14/2023 01/14/2023 10: 07 AM EST Additional Source Comments Source Comments (unrecognized section an d content) In the event this information is protect ed by the Federal Confidentiality of Alcohol and Drug Abuse Patient Records regulatio ns: This information has been disclosed to you from records protected by Federal co nfidentiality rules ( The Federal rules restrict any use of the information to criminally investigate or prosecute any alcohol or drug abuse patient. [facility] the event this information is protected by t Federal Confidentiality of Alcohol and Drug Abuse Patient Records regulations: This information has been disclosed to you from records protected by Federal confid entiality rules ( The Federal rules restrict any use of th e information to criminally investigate or prosecute any alcohol or drug abuse tracy ent. [facility]In the event this information is protected by the Federal Confidentiality of Alcohol and Drug Abuse Patient Records regulations: This inform ation has been disclosed to you from records protected by Federal confidentiality rul es ( The Federal rules restrict any use of the in formation to criminally investigate or prosecute any alcohol or drug abuse tracy ent. [facility]In the event this information is protected by the Federal Confidentiality of Alcohol and Drug Abuse Patient Records regulations: This inform ation has been disclosed to you from records protected by Federal confidentiality rul es ( The Federal rules restrict any use of the in formation to criminally investigate or prosecute any alcohol or drug abuse tracy ent. [facility]In the event this information is protected by the Federal Confidentiality of Alcohol and Drug Abuse Patient Records regulations: This inform ation has been disclosed to you from records protected by Federal confidentiality rul es ( The Federal rules restrict any use of the in formation to criminally investigate or prosecute any alcohol or drug abuse tracy ent. [facility]In the event this information is protected by the Federal Confidentiality of Alcohol and Drug Abuse Patient Records regulations: This inform ation has been disclosed to you from records protected by Federal confidentiality rul es ( The Federal rules restrict any use of the in formation to criminally investigate or prosecute any alcohol or drug abuse tracy ent. [facility]In the event this information is protected by the Federal Confidentiality of Alcohol and Drug Abuse Patient Records regulations: This inform ation has been disclosed to you from records protected by Federal confidentiality rul es ( The Federal rules restrict any use of the in formation to criminally investigate or prosecute any alcohol or drug abuse tracy ent. [facility]In the event this information is protected by the Federal Confidentiality of Alcohol and Drug Abuse Patient Records regulations: This inform ation has been disclosed to you from records protected by Federal confidentiality rul es ( The Federal rules restrict any use of the in formation to criminally investigate or prosecute any alcohol or drug abuse tracy ent. [facility] CenterIn the event this information is protected by the Federal Confidentiality of Alcohol and Drug Abuse Patient Records regulations: This inform ation has been disclosed to you from records protected by Federal confidentiality rul es ( The Federal rules restrict any use of the in formation to criminally investigate or prosecute any alcohol or drug abuse tracy ent. [facility]In the event this information is protected by the Federal Confidentiality of Alcohol and Drug Abuse Patient Records regulations: This inform ation has been disclosed to you from records protected by Federal confidentiality rul es ( The Federal rules restrict any use of the in formation to criminally investigate or prosecute any alcohol or drug abuse tracy ent. [facility] CenterIn the event this information is protected by the Federal Confidentiality of Alcohol and Drug Abuse Patient Records regulations: This inform ation has been disclosed to you from records protected by Federal confidentiality rul es ( The Federal rules restrict any use of the in formation to criminally investigate or prosecute any alcohol or drug abuse tracy ent. [facility]In the event this information is protected by the Federal Confidentiality of Alcohol and Drug Abuse Patient Records regulations: This inform ation has been disclosed to you from records protected by Federal confidentiality rul es ( The Federal rules restrict any use of the in formation to criminally investigate or prosecute any alcohol or drug abuse tracy ent. [facility] CenterIn the event this information is protected by the Federal Confidentiality of Alcohol and Drug Abuse Patient Records regulations: This inform ation has been disclosed to you from records protected by Federal confidentiality rul es ( The Federal rules restrict any use of the in formation to criminally investigate or prosecute any alcohol or drug abuse tracy ent. [facility] CenterIn the event this information is protected by the Federal Confidentiality of Alcohol and Drug Abuse Patient Records regulations: This inform ation has been disclosed to you from records protected by Federal confidentiality rul es ( The Federal rules restrict any use of the in formation to criminally investigate or prosecute any alcohol or drug abuse tracy ent. [facility] CenterIn the event this information is protected by the Federal Confidentiality of Alcohol and Drug Abuse Patient Records regulations: This inform ation has been disclosed to you from records protected by Federal confidentiality rul es ( The Federal rules restrict any use of the in formation to criminally investigate or prosecute any alcohol or drug abuse tracy ent. [facility] CenterIn the event this information is protected by the Federal Confidentiality of Alcohol and Drug Abuse Patient Records regulations: This inform ation has been disclosed to you from records protected by Federal confidentiality rul es ( The Federal rules restrict any use of the in formation to criminally investigate or prosecute any alcohol or drug abuse tracy ent. [facility]In the event this information is protected by the Federal Confidentiality of Alcohol and Drug Abuse Patient Records regulations: This inform ation has been disclosed to you from records protected by Federal confidentiality rul es ( The Federal rules restrict any use of the in formation to criminally investigate or prosecute any alcohol or drug abuse tracy ent. [facility] CenterIn the event this information is protected by the Federal Confidentiality of Alcohol and Drug Abuse Patient Records regulations: This inform ation has been disclosed to you from records protected by Federal confidentiality rul es ( The Federal rules restrict any use of the in formation to criminally investigate or prosecute any alcohol or drug abuse tracy ent. [facility]In the event this information is protected by the Federal Confidentiality of Alcohol and Drug Abuse Patient Records regulations: This inform ation has been disclosed to you from records protected by Federal confidentiality rul es ( The Federal rules restrict any use of the in formation to criminally investigate or prosecute any alcohol or drug abuse tracy ent. [facility] CenterIn the event this information is protected by the Federal Confidentiality of Alcohol and Drug Abuse Patient Records regulations: This inform ation has been disclosed to you from records protected by Federal confidentiality rul es ( The Federal rules restrict any use of the in formation to criminally investigate or prosecute any alcohol or drug abuse tracy ent. [facility] CenterIn the event this information is protected by the Federal Confidentiality of Alcohol and Drug Abuse Patient Records regulations: This inform ation has been disclosed to you from records protected by Federal confidentiality rul es ( The Federal rules restrict any use of the in formation to criminally investigate or prosecute any alcohol or drug abuse tracy ent. [facility]In the event this information is protected by the Federal Confidentiality of Alcohol and Drug Abuse Patient Records regulations: This inform ation has been disclosed to you from records protected by Federal confidentiality rul es ( The Federal rules restrict any use of the in formation to criminally investigate or prosecute any alcohol or drug abuse tracy ent. [facility] CenterIn the event this information is protected by the Federal Confidentiality of Alcohol and Drug Abuse Patient Records regulations: This inform ation has been disclosed to you from records protected by Federal confidentiality rul es ( The Federal rules restrict any use of the in formation to criminally investigate or prosecute any alcohol or drug abuse tracy ent. [facility] CenterIn the event this information is protected by the Federal Confidentiality of Alcohol and Drug Abuse Patient Records regulations: This inform ation has been disclosed to you from records protected by Federal confidentiality rul es ( The Federal rules restrict any use of the in formation to criminally investigate or prosecute any alcohol or drug abuse tracy ent. [facility] CenterIn the event this information is protected by the Federal Confidentiality of Alcohol and Drug Abuse Patient Records regulations: This inform ation has been disclosed to you from records protected by Federal confidentiality rul es ( The Federal rules restrict any use of the in formation to criminally investigate or prosecute any alcohol or drug abuse tracy ent. [facility] CenterIn the event this information is protected by the Federal Confidentiality of Alcohol and Drug Abuse Patient Records regulations: This inform ation has been disclosed to you from records protected by Federal confidentiality rul es ( The Federal rules restrict any use of the in formation to criminally investigate or prosecute any alcohol or drug abuse tracy ent. [facility] CenterIn the event this information is protected by the Federal Confidentiality of Alcohol and Drug Abuse Patient Records regulations: This inform ation has been disclosed to you from records protected by Federal confidentiality rul es ( The Federal rules restrict any use of the in formation to criminally investigate or prosecute any alcohol or drug abuse tracy ent. [facility] CenterIn the event this information is protected by the Federal Confidentiality of Alcohol and Drug Abuse Patient Records regulations: This inform ation has been disclosed to you from records protected by Federal confidentiality rul es ( The Federal rules restrict any use of the in formation to criminally investigate or prosecute any alcohol or drug abuse tracy ent. [facility] CenterIn the event this information is protected by the Federal Confidentiality of Alcohol and Drug Abuse Patient Records regulations: This inform ation has been disclosed to you from records protected by Federal confidentiality rul es ( The Federal rules restrict any use of the in formation to criminally investigate or prosecute any alcohol or drug abuse tracy ent. [facility] CenterIn the event this information is protected by the Federal Confidentiality of Alcohol and Drug Abuse Patient Records regulations: This inform ation has been disclosed to you from records protected by Federal confidentiality rul es ( The Federal rules restrict any use of the in formation to criminally investigate or prosecute any alcohol or drug abuse tracy ent. [facility] CenterIn the event this information is protected by the Federal Confidentiality of Alcohol and Drug Abuse Patient Records regulations: This inform ation has been disclosed to you from records protected by Federal confidentiality rul es ( The Federal rules restrict any use of the in formation to criminally investigate or prosecute any alcohol or drug abuse tracy ent. [facility] CenterIn the event this information is protected by the Federal Confidentiality of Alcohol and Drug Abuse Patient Records regulations: This inform ation has been disclosed to you from records protected by Federal confidentiality rul es ( The Federal rules restrict any use of the in formation to criminally investigate or prosecute any alcohol or drug abuse tracy ent. [facility] CenterIn the event this information is protected by the Federal Confidentiality of Alcohol and Drug Abuse Patient Records regulations: This inform ation has been disclosed to you from records protected by Federal confidentiality rul es ( The Federal rules restrict any use of the in formation to criminally investigate or prosecute any alcohol or drug abuse tracy ent. [facility] CenterIn the event this information is protected by the Federal Confidentiality of Alcohol and Drug Abuse Patient Records regulations: This inform ation has been disclosed to you from records protected by Federal confidentiality rul es ( The Federal rules restrict any use of the in formation to criminally investigate or prosecute any alcohol or drug abuse tracy ent. [facility] CenterIn the event this information is protected by the Federal Confidentiality of Alcohol and Drug Abuse Patient Records regulations: This inform ation has been disclosed to you from records protected by Federal confidentiality rul es ( The Federal rules restrict any use of the in formation to criminally investigate or prosecute any alcohol or drug abuse tracy ent. [facility] CenterIn the event this information is protected by the Federal Confidentiality of Alcohol and Drug Abuse Patient Records regulations: This inform ation has been disclosed to you from records protected by Federal confidentiality rul es ( The Federal rules restrict any use of the in formation to criminally investigate or prosecute any alcohol or drug abuse tracy ent. [facility] CenterIn the event this information is protected by the Federal Confidentiality of Alcohol and Drug Abuse Patient Records regulations: This inform ation has been disclosed to you from records protected by Federal confidentiality rul es ( The Federal rules restrict any use of the in formation to criminally investigate or prosecute any alcohol or drug abuse tracy ent. [facility] CenterIn the event this information is protected by the Federal Confidentiality of Alcohol and Drug Abuse Patient Records regulations: This inform ation has been disclosed to you from records protected by Federal confidentiality rul es ( The Federal rules restrict any use of the in formation to criminally investigate or prosecute any alcohol or drug abuse tracy ent. [facility] CenterIn the event this information is protected by the Federal Confidentiality of Alcohol and Drug Abuse Patient Records regulations: This inform ation has been disclosed to you from records protected by Federal confidentiality rul es ( The Federal rules restrict any use of the in formation to criminally investigate or prosecute any alcohol or drug abuse tracy ent. [facility] CenterIn the event this information is protected by the Federal Confidentiality of Alcohol and Drug Abuse Patient Records regulations: This inform ation has been disclosed to you from records protected by Federal confidentiality rul es ( The Federal rules restrict any use of the in formation to criminally investigate or prosecute any alcohol or drug abuse tracy ent. [facility] CenterIn the event this information is protected by the Federal Confidentiality of Alcohol and Drug Abuse Patient Records regulations: This inform ation has been disclosed to you from records protected by Federal confidentiality rul es ( The Federal rules restrict any use of the in formation to criminally investigate or prosecute any alcohol or drug abuse tracy ent. [facility] CenterIn the event this information is protected by the Federal Confidentiality of Alcohol and Drug Abuse Patient Records regulations: This inform ation has been disclosed to you from records protected by Federal confidentiality rul es ( The Federal rules restrict any use of the in formation to criminally investigate or prosecute any alcohol or drug abuse tracy ent. [facility] CenterIn the event this information is protected by the Federal Confidentiality of Alcohol and Drug Abuse Patient Records regulations: This inform ation has been disclosed to you from records protected by Federal confidentiality rul es ( The Federal rules restrict any use of the in formation to criminally investigate or prosecute any alcohol or drug abuse tracy ent. [facility] CenterIn the event this information is protected by the Federal Confidentiality of Alcohol and Drug Abuse Patient Records regulations: This inform ation has been disclosed to you from records protected by Federal confidentiality rul es ( The Federal rules restrict any use of the in formation to criminally investigate or prosecute any alcohol or drug abuse tracy ent. [facility] CenterIn the event this information is protected by the Federal Confidentiality of Alcohol and Drug Abuse Patient Records regulations: This inform ation has been disclosed to you from records protected by Federal confidentiality rul es ( The Federal rules restrict any use of the in formation to criminally investigate or prosecute any alcohol or drug abuse tracy ent. [facility] CenterIn the event this information is protected by the Federal Confidentiality of Alcohol and Drug Abuse Patient Records regulations: This inform ation has been disclosed to you from records protected by Federal confidentiality rul es ( The Federal rules restrict any use of the in formation to criminally investigate or prosecute any alcohol or drug abuse tracy ent. [facility] CenterIn the event this information is protected by the Federal Confidentiality of Alcohol and Drug Abuse Patient Records regulations: This inform ation has been disclosed to you from records protected by Federal confidentiality rul es ( The Federal rules restrict any use of the in formation to criminally investigate or prosecute any alcohol or drug abuse tracy ent. [facility] CenterIn the event this information is protected by the Federal Confidentiality of Alcohol and Drug Abuse Patient Records regulations: This inform ation has been disclosed to you from records protected by Federal confidentiality rul es ( The Federal rules restrict any use of the in formation to criminally investigate or prosecute any alcohol or drug abuse tracy ent. [facility] CenterIn the event this information is protected by the Federal Confidentiality of Alcohol and Drug Abuse Patient Records regulations: This inform ation has been disclosed to you from records protected by Federal confidentiality rul es ( The Federal rules restrict any use of the in formation to criminally investigate or prosecute any alcohol or drug abuse tracy ent. [facility] CenterIn the event this information is protected by the Federal Confidentiality of Alcohol and Drug Abuse Patient Records regulations: This inform ation has been disclosed to you from records protected by Federal confidentiality rul es ( The Federal rules restrict any use of the in formation to criminally investigate or prosecute any alcohol or drug abuse tracy ent. [facility] CenterIn the event this information is protected by the Federal Confidentiality of Alcohol and Drug Abuse Patient Records regulations: This inform ation has been disclosed to you from records protected by Federal confidentiality rul es ( The Federal rules restrict any use of the in formation to criminally investigate or prosecute any alcohol or drug abuse tracy ent. [facility] CenterIn the event this information is protected by the Federal Confidentiality of Alcohol and Drug Abuse Patient Records regulations: This inform ation has been disclosed to you from records protected by Federal confidentiality rul es ( The Federal rules restrict any use of the in formation to criminally investigate or prosecute any alcohol or drug abuse tracy ent. [facility] CenterIn the event this information is protected by the Federal Confidentiality of Alcohol and Drug Abuse Patient Records regulations: This inform ation has been disclosed to you from records protected by Federal confidentiality rul es ( The Federal rules restrict any use of the in formation to criminally investigate or prosecute any alcohol or drug abuse tracy ent. [facility] CenterIn the event this information is protected by the Federal Confidentiality of Alcohol and Drug Abuse Patient Records regulations: This inform ation has been disclosed to you from records protected by Federal confidentiality rul es ( The Federal rules restrict any use of the in formation to criminally investigate or prosecute any alcohol or drug abuse tracy ent. [facility] CenterIn the event this information is protected by the Federal Confidentiality of Alcohol and Drug Abuse Patient Records regulations: This inform ation has been disclosed to you from records protected by Federal confidentiality rul es ( The Federal rules restrict any use of the in formation to criminally investigate or prosecute any alcohol or drug abuse tracy ent. [facility] CenterIn the event this information is protected by the Federal Confidentiality of Alcohol and Drug Abuse Patient Records regulations: This inform ation has been disclosed to you from records protected by Federal confidentiality rul es ( The Federal rules restrict any use of the in formation to criminally investigate or prosecute any alcohol or drug abuse tracy ent. [facility] CenterIn the event this information is protected by the Federal Confidentiality of Alcohol and Drug Abuse Patient Records regulations: This inform ation has been disclosed to you from records protected by Federal confidentiality rul es ( The Federal rules restrict any use of the in formation to criminally investigate or prosecute any alcohol or drug abuse tracy ent. [facility] CenterIn the event this information is protected by the Federal Confidentiality of Alcohol and Drug Abuse Patient Records regulations: This inform ation has been disclosed to you from records protected by Federal confidentiality rul es ( The Federal rules restrict any use of the in formation to criminally investigate or prosecute any alcohol or drug abuse tracy ent. [facility] CenterIn the event this information is protected by the Federal Confidentiality of Alcohol and Drug Abuse Patient Records regulations: This inform ation has been disclosed to you from records protected by Federal confidentiality rul es ( The Federal rules restrict any use of the in formation to criminally investigate or prosecute any alcohol or drug abuse tracy ent. [facility] CenterIn the event this information is protected by the Federal Confidentiality of Alcohol and Drug Abuse Patient Records regulations: This inform ation has been disclosed to you from records protected by Federal confidentiality rul es ( The Federal rules restrict any use of the in formation to criminally investigate or prosecute any alcohol or drug abuse tracy ent. [facility] CenterIn the event this information is protected by the Federal Confidentiality of Alcohol and Drug Abuse Patient Records regulations: This inform ation has been disclosed to you from records protected by Federal confidentiality rul es ( The Federal rules restrict any use of the in formation to criminally investigate or prosecute any alcohol or drug abuse tracy ent. [facility] CenterIn the event this information is protected by the Federal Confidentiality of Alcohol and Drug Abuse Patient Records regulations: This inform ation has been disclosed to you from records protected by Federal confidentiality rul es ( The Federal rules restrict any use of the in formation to criminally investigate or prosecute any alcohol or drug abuse tracy ent. [facility] CenterIn the event this information is protected by the Federal Confidentiality of Alcohol and Drug Abuse Patient Records regulations: This inform ation has been disclosed to you from records protected by Federal confidentiality rul es ( The Federal rules restrict any use of the in formation to criminally investigate or prosecute any alcohol or drug abuse tracy ent. [facility] CenterIn the event this information is protected by the Federal Confidentiality of Alcohol and Drug Abuse Patient Records regulations: This inform ation has been disclosed to you from records protected by Federal confidentiality rul es ( The Federal rules restrict any use of the in formation to criminally investigate or prosecute any alcohol or drug abuse tracy ent. [facility] CenterIn the event this information is protected by the Federal Confidentiality of Alcohol and Drug Abuse Patient Records regulations: This inform ation has been disclosed to you from records protected by Federal confidentiality rul es ( The Federal rules restrict any use of the in formation to criminally investigate or prosecute any alcohol or drug abuse tracy ent. [facility] CenterIn the event this information is protected by the Federal Confidentiality of Alcohol and Drug Abuse Patient Records regulations: This inform ation has been disclosed to you from records protected by Federal confidentiality rul es ( The Federal rules restrict any use of the in formation to criminally investigate or prosecute any alcohol or drug abuse tracy ent. [facility] CenterIn the event this information is protected by the Federal Confidentiality of Alcohol and Drug Abuse Patient Records regulations: This inform ation has been disclosed to you from records protected by Federal confidentiality rul es ( The Federal rules restrict any use of the in formation to criminally investigate or prosecute any alcohol or drug abuse tracy ent. [facility] CenterIn the event this information is protected by the Federal Confidentiality of Alcohol and Drug Abuse Patient Records regulations: This inform ation has been disclosed to you from records protected by Federal confidentiality rul es ( The Federal rules restrict any use of the in formation to criminally investigate or prosecute any alcohol or drug abuse tracy ent. [facility] CenterIn the event this information is protected by the Federal Confidentiality of Alcohol and Drug Abuse Patient Records regulations: This inform ation has been disclosed to you from records protected by Federal confidentiality rul es ( The Federal rules restrict any use of the in formation to criminally investigate or prosecute any alcohol or drug abuse tracy ent. [facility] CenterIn the event this information is protected by the Federal Confidentiality of Alcohol and Drug Abuse Patient Records regulations: This inform ation has been disclosed to you from records protected by Federal confidentiality rul es ( The Federal rules restrict any use of the in formation to criminally investigate or prosecute any alcohol or drug abuse tracy ent. [facility] CenterIn the event this information is protected by the Federal Confidentiality of Alcohol and Drug Abuse Patient Records regulations: This inform ation has been disclosed to you from records protected by Federal confidentiality rul es ( The Federal rules restrict any use of the in formation to criminally investigate or prosecute any alcohol or drug abuse tracy ent. [facility] CenterIn the event this information is protected by the Federal Confidentiality of Alcohol and Drug Abuse Patient Records regulations: This inform ation has been disclosed to you from records protected by Federal confidentiality rul es ( The Federal rules restrict any use of the in formation to criminally investigate or prosecute any alcohol or drug abuse tracy ent. [facility] CenterIn the event this information is protected by the Federal Confidentiality of Alcohol and Drug Abuse Patient Records regulations: This inform ation has been disclosed to you from records protected by Federal confidentiality rul es ( The Federal rules restrict any use of the in formation to criminally investigate or prosecute any alcohol or drug abuse tracy ent. [facility] CenterIn the event this information is protected by the Federal Confidentiality of Alcohol and Drug Abuse Patient Records regulations: This inform ation has been disclosed to you from records protected by Federal confidentiality rul es ( The Federal rules restrict any use of the in formation to criminally investigate or prosecute any alcohol or drug abuse tracy ent. [facility] CenterIn the event this information is protected by the Federal Confidentiality of Alcohol and Drug Abuse Patient Records regulations: This inform ation has been disclosed to you from records protected by Federal confidentiality rul es ( The Federal rules restrict any use of the in formation to criminally investigate or prosecute any alcohol or drug abuse tracy ent. [facility] CenterIn the event this information is protected by the Federal Confidentiality of Alcohol and Drug Abuse Patient Records regulations: This inform ation has been disclosed to you from records protected by Federal confidentiality rul es ( The Federal rules restrict any use of the in formation to criminally investigate or prosecute any alcohol or drug abuse tracy ent. [facility] CenterIn the event this information is protected by the Federal Confidentiality of Alcohol and Drug Abuse Patient Records regulations: This inform ation has been disclosed to you from records protected by Federal confidentiality rul es ( The Federal rules restrict any use of the in formation to criminally investigate or prosecute any alcohol or drug abuse tracy ent. [facility] CenterIn the event this information is protected by the Federal Confidentiality of Alcohol and Drug Abuse Patient Records regulations: This inform ation has been disclosed to you from records protected by Federal confidentiality rul es ( The Federal rules restrict any use of the in formation to criminally investigate or prosecute any alcohol or drug abuse tracy ent. [facility] CenterIn the event this information is protected by the Federal Confidentiality of Alcohol and Drug Abuse Patient Records regulations: This inform ation has been disclosed to you from records protected by Federal confidentiality rul es ( The Federal rules restrict any use of the in formation to criminally investigate or prosecute any alcohol or drug abuse tracy ent. [facility] CenterIn the event this information is protected by the Federal Confidentiality of Alcohol and Drug Abuse Patient Records regulations: This inform ation has been disclosed to you from records protected by Federal confidentiality rul es ( The Federal rules restrict any use of the in formation to criminally investigate or prosecute any alcohol or drug abuse tracy ent. [facility] CenterIn the event this information is protected by the Federal Confidentiality of Alcohol and Drug Abuse Patient Records regulations: This inform ation has been disclosed to you from records protected by Federal confidentiality rul es ( The Federal rules restrict any use of the in formation to criminally investigate or prosecute any alcohol or drug abuse tracy ent. [facility] CenterIn the event this information is protected by the Federal Confidentiality of Alcohol and Drug Abuse Patient Records regulations: This inform ation has been disclosed to you from records protected by Federal confidentiality rul es ( The Federal rules restrict any use of the in formation to criminally investigate or prosecute any alcohol or drug abuse tracy ent. [facility] CenterIn the event this information is protected by the Federal Confidentiality of Alcohol and Drug Abuse Patient Records regulations: This inform ation has been disclosed to you from records protected by Federal confidentiality rul es ( The Federal rules restrict any use of the in formation to criminally investigate or prosecute any alcohol or drug abuse tracy ent. [facility] Reason for Visit (unrecognized section a nd content) Reason Onset Date Comments Refill Request 01/14/2022 SEE RX NOTES Reason Comments F/U 3 Month Reason Comments Results Reason Comments Patient Request Reason Comments medication instructions Reason Comments Medication Question Reason Comments Orders Reason Comments insurance requests change insulin Reason Comments Patient Update Medication Request Reason Comments Diabetes Reason Comments Medication Problem Reason Comments Insurance Authorization Freestyle Domenico Reason Comments Patient Update Reason Onset Date Comments Refill Request 05/01/2022 Reason Onset Date Comments Refill Request 06/05/2022 Reason Comments Missed Appointment Reason Comments Erroneous encounter-disregard Reason Comments Appointment patient past due for follow up- no show on 06/18/22 Reason Onset Date Comments Refill Request 2022 Reason Comments Forms DM Supplies Reason Comments Appointment Reason Comments Medication Problem Patient requesting all RX's for medications and diabetic supplies be sent to [facility] in [place]. Reason Onset Date Comments Refill Request 07/24/2022 Reason Comments Consult Colonoscopy Reason Onset Date Comments Refill Request 07/05/2022 Refill Request 08/16/2022 Reason Onset Date Comments Refill Request 08/27/2022 Reason Onset Date Comments Refill Request 10/04/2022 Reason Comments Prescription Clarification Reason Comments Results No answer and VM not set up. [employer] message sent to request patient call in for results on Lab and xray. Reason Comments Hospital Follow Up Reason Comments Diabetes Type 2 diabetes mellitus wit h diabetic polyneuropathy, with long-term current use of insulin (HCC) Reason Comments Established Patient Follow Up Diabetic Foot Care Pain Reason Comments Recheck 4 week follow up Reason Onset Date Comments Refill Request 11/27/2022 Reason Comments Refill Request Reason Comments Medication Problem Reason Onset Date Comments Refill Request 12/31/2022 Reason Onset Date Comments Transition Of Care 01/02/2023 [facility] discharge 01/01/23 Reason Onset Date Comments Transition Of Care 01/02/2023 TCM initial outreach -dc'd from [facility] 01/01/23 Reason Comments Missed Appointment Pharmacy visit reschedule Reason Comments Medication Request Reason Onset Date Comments Transition Of Care 01/14/2023 TCM follow-up readmi tted to hospital Reason Onset Date Comments Transition Of Care 01/17/2023 [facility]acy[facility]osp[facility] discharge 01/16/23 Reason Comments Senior Care Reason Onset Date Comments Transition Of Care 01/28/2023 TCM follow up Reason Onset Date Comments Refill Request 02/03/2023 Reason Comments C PT Order Request Reason Comments Home Care MD to follow Reason Comments Hospital F/U Reason Comments Fax last Office Vist Notes Reason Onset Date Comments Transition Of Care 02/21/2023 [facility] Pharmacy-Hospita l discharge 02/20/23 Reason Onset Date Comments Transition Of Care 02/21/2023 TCM Initial [facility] Hospital Discharge 02/20/23 Specialty Diagnoses / Procedures Referred By Contact Refer red To Contact HOME CARE SERVICES Home Care IND [address] [place] [address] Phone: Referral ID Status Reason Start Date Expiration Date Visits Requ ested Visits Authorized [id number] 1 1 Care Teams (unrecognized section and con tent) Park Worker Supervisor Relationship Specialty Start Date End Date Panfilo Oreilly MD PCP - General Family Practice 02/12/17 [address] [place], [place] [address] Shreya Mccray Endocrinology 07/23/18 [place] [facility] Special[facility]illet Cutter Pulmonary Disease 12/23/18 [address] [place], [place] [id number] Brandee Cotter (Board Design Engineer) Consulting Endocrinology 11/09/19 [address], [place] [id number] [place] Consulting Pulmonary Disease 11/12/19 [address] [place] [address] Robert Sanchez, [facility] Pharmacist Pharmacy 09/06/21 [address] [place] [address] [facility] 12/17/17 [facility] W[facility] Center 07/23/18 [facility] 06/20/20 Park Worker Supervisor Relationship Specialty Start Date End Date Panfilo Oreilly MD PCP - General Family Practice 02/12/17 [address] [place] [address] Shreya Mccray Endocrinology 07/23/18 [place] [facility] Special[facility] Cutter Pulmonary Disease 12/23/18 [address] [place] [address] Brandee Cotter (Board Design Engineer) Consulting Endocrinology 11/09/19 [address] [place] [address] [place] Consulting Pulmonary Disease 11/12/19 [address] [place] [address] Robert Sanchez [facility] Pharmacist Pharmacy 09/06/21 [address] [place] [address] [facility] 12/17/17 [facility] Wound Center 07/23/18 [facility] 06/20/20 Park Worker Supervisor Relationship Specialty Start Date End Date Panfilo Oreilly MD PCP - General Family Practice 02/12/17 [address] [facility] [place] [address] Shreya Mccray Endocrinology 07/23/18 [place] [facility] Special[facility] Cutter Pulmonary Disease 12/23/18 [address] [place] [address] Brandee Cotter (Board Design Engineer) Consulting Endocrinology 11/09/19 [address] [place] [address] [place] Consulting Pulmonary Disease 11/12/19 [address] [place] [address] Robert Sanchez, [facility] Pharmacist Pharmacy 09/06/21 [address] [place] [address] [facility] 12/17/17 [facility] Wound Center 07/23/18 [facility] 06/20/20 Park Worker Supervisor Relationship Specialty Start Date End Date Panfilo Oreilly MD PCP - General Family Practice 02/12/17 [address] [facility] [place] [address] Shreya Mccray Endocrinology 07/23/18 [place] [facility] Special[facility] B[facility] Cutter Pulmonary Disease 12/23/18 [address] [place] [address] Brandee Cotter (Board Design Engineer) Consulting Endocrinology 11/09/19 [address] [place] [address] [place] Consulting Pulmonary Disease 11/12/19 [address] [place] [address] Robert Sanchez, [facility] Pharmacist Pharmacy 09/06/21 [address] [place] [address] [facility] 12/17/17 [facility] Wound Center 07/23/18 [facility] 06/20/20 Park Worker Supervisor Relationship Specialty Start Date End Date Panfilo Oreilly MD PCP - General Family Practice 02/12/17 [address] [place] [address] Shreya Mccray Endocrinology 07/23/18 [place] Special[facility] Cutter Pulmonary Disease 12/23/18 [address] [place] [address] Brandee Cotter (Board Design Engineer) Consulting Endocrinology 11/09/19 [address] [place] [address] [place] Consulting Pulmonary Disease 11/12/19 [address] [place] [address] Robert Sanchez, [facility] Pharmacist Pharmacy 09/06/21 [address] [place] [address] [facility] 12/17/17 [facility] Wound Center 07/23/18 [facility] 06/20/20 Park Worker Supervisor Relationship Specialty Start Date End Date Panfilo Oreilly MD PCP - General Family Practice 02/12/17 [address] [facility] [place] [address] Shreya Mccray Endocrinology 07/23/18 [place] Specialty Billet Cutter Pulmonary Disease 12/23/18 [address] [place] [address] rBandee Cotter (Board Design Engineer) Consulting Endocrinology 11/09/19 [address], [place] [id number] [place] Consulting Pulmonary Disease 11/12/19 [address] [place] [address] [facility] 09/06/21 [address] [place] [address] [facility] 12/17/17 [facility] Wound Center 07/23/18 [facility] 06/20/20 Park Worker Supervisor Relationship Specialty Start Date End Date Panfilo Oreilly MD PCP - General Family Practice 02/12/17 [address] [place] [address] Shreya Mccray Endocrinology 07/23/18 [place] Specialty Billet Cutter Pulmonary Disease 12/23/18 [address] [place] [address] Brandee Cotter (Board Design Engineer) Consulting Endocrinology 11/09/19 [address] [place] [address] [place] Consulting Pulmonary Disease 11/12/19 [address] [place] [address] Robert Sanchez [facility] Pharmacist Pharmacy 09/06/21 [address] [place] [address] [facility] 12/17/17 [facility] Wound Center 07/23/18 [facility] 06/20/20 Park Worker Supervisor Relationship Specialty Start Date End Date Panfilo Oreilly MD PCP - General Family Practice 02/12/17 [address] [place] [address] Shreya Mccray Endocrinology 07/23/18 [place] Specialty Billet Cutter Pulmonary Disease 12/23/18 [address] [place] [address] Brandee Cotter (Board Design Engineer) Consulting Endocrinology 11/09/19 [address] [place] [address] [place] Consulting Pulmonary Disease 11/12/19 [address] [place] [address] Robert Sanchez [facility] Pharmacist Pharmacy 09/06/21 [address] [place] [address] [facility] 12/17/17 [facility] Wound Center 07/23/18 [facility] 06/20/20 Park Worker Supervisor Relationship Specialty Start Date End Date Panfilo Oreilly MD PCP - General Family Practice 02/12/17 [address] [place] [address] Shreya Mccray Endocrinology 07/23/18 [place] Specialty Billet Cutter Pulmonary Disease 12/23/18 [address] [place] [address] Brandee Cotter (Board Design Engineer) Consulting Endocrinology 11/09/19 [address], [place] [id number] [place] Consulting Pulmonary Disease 11/12/19 [address] [place] [address] Robert Sanchez, [facility] Pharmacist Pharmacy 09/06/21 [address] [place] [address] [facility] 12/17/17 [facility] Wound Center 07/23/18 [facility] 06/20/20 Park Worker Supervisor Relationship Specialty Start Date End Date Panfilo Oreilly MD PCP - General Family Practice 02/12/17 [address] [facility] [place] [address] Shreya Mccray Endocrinology 07/23/18 [place] Specialty Billet Cutter Pulmonary Disease 12/23/18 [address] [place] [address] Brandee Cotter (Board Design Engineer) Consulting Endocrinology 11/09/19 [address], [place] [id number] [place] Consulting Pulmonary Disease 11/12/19 [address] [place] [address] Robert Sanchez [facility] Pharmacist Pharmacy 09/06/21 [address] [facility] [place] [address] [facility] 12/17/17 [facility] Wound Center 07/23/18 [facility] 06/20/20 Park Worker Supervisor Relationship Specialty Start Date End Date Panfilo Oreilly MD PCP - General Family Practice 02/12/17 [address] [place] [address] Shreya Mccray Endocrinology 07/23/18 [place] Specialty Billet Cutter Pulmonary Disease 12/23/18 [address] [place] [address] Brandee Cotter (Board Design Engineer) Consulting Endocrinology 11/09/19 [address] [place] [address] [place] Consulting Pulmonary Disease 11/12/19 [address] [place] [address] Robert Sanchez [facility] Pharmacist Pharmacy 09/06/21 [address] [place] [address] [facility] 12/17/17 [facility] Wound Center 07/23/18 [facility] 06/20/20 Park Worker Supervisor Relationship Specialty Start Date End Date Panfilo Oreilly MD PCP - General Family Practice 02/12/17 [address] [facility] [address] Shreya Mccray Endocrinology 07/23/18 [place] Specialty Billet Cutter Pulmonary Disease 12/23/18 [address] [place] [address] Brandee Cotter (Board Design Engineer) Consulting Endocrinology 11/09/19 [address], [place] [id number] [place] Consulting Pulmonary Disease 11/12/19 [address] [place] [address] Robert Sanchez, [facility] Pharmacist Pharmacy 09/06/21 [address] [place] [address] [facility] 12/17/17 [facility] Wound Center 07/23/18 [facility] 06/20/20 Park Worker Supervisor Relationship Specialty Start Date End Date Panfilo Oreilly MD PCP - General Family Practice 02/12/17 [address] [place] [address] Shreya Mccray Endocrinology 07/23/18 [place] [facility] Pulmonary Disease 12/23/18 [address] [place] [address] Brandee Cotter (Board Design Engineer) Consulting Endocrinology 11/09/19 [address] [place] [address] [place] [facility] Consulting Pulmonary Disease 11/12/19 [address] [place] [address] Robert Sanchez [facility] Pharmacist Pharmacy 09/06/21 [address] [place] [address] [employer] 12/17/17 [facility] Wound Center 07/23/18 [facility] Patients 06/20/20 Park Worker Supervisor Relationship Specialty Start Date End Date Panfilo Oreilly MD PCP - General Family Practice 02/12/17 [address] [place] [address] Shreya Mccray Endocrinology 07/23/18 [place] [facility] Pulmonary Disease 12/23/18 [address] [place] [address] Brandee Cotter (Board Design Engineer) Consulting Endocrinology 11/09/19 [address] [place] [address] [place] [facility] Consulting Pulmonary Disease 11/12/19 [address] [place] [address] Robert Sanchez, [facility] Pharmacist Pharmacy 09/06/21 [address] [place] [address] [employer] 12/17/17 [facility] Wound Center 07/23/18 Indian Home Patients 06/20/20 Park Worker Supervisor Relationship Specialty Start Date End Date Panfilo Oreilly MD PCP - General Family Practice 02/12/17 [address] [place] [address] Shreya Mccray Endocrinology 07/23/18 [place] [facility] Pulmonary Disease 12/23/18 [address] [place] [address] Brandee Cotter (Board Design Engineer) Consulting Endocrinology 11/09/19 [address], [place] [id number] [place] [facility] Consulting Pulmonary Disease 11/12/19 [address] [place] [address] Robert Sanchez [facility] Pharmacist Pharmacy 09/06/21 [address] [place] [address] [employer] 12/17/17 [facility] Wound Center 07/23/18 Indian Home Patients 06/20/20 Park Worker Supervisor Relationship Specialty Start Date End Date Panfilo Oreilly MD PCP - General Family Practice 02/12/17 [address] [place] [address] Shreya Mccray Endocrinology 07/23/18 [place] [facility] Pulmonary Disease 12/23/18 [address] [place] [address] Brandee Cotter (Board Design Engineer) Consulting Endocrinology 11/09/19 [address] [place] [address] [place] [facility] Consulting Pulmonary Disease 11/12/19 [address] [place] [address] [facility] 09/06/21 [address] [place] [address] [employer] 12/17/17 [facility] Wound Center 07/23/18 Indian Home Patients 06/20/20 Park Worker Supervisor Relationship Specialty Start Date End Date Panfilo Oreilly MD PCP - General Family Practice 02/12/17 [address] [place] [address] Shreya Mccray Endocrinology 07/23/18 [place] [facility]utter Pulmonary Disease 12/23/18 [address] [place] [address] Brandee Cotter (Board Design Engineer) Consulting Endocrinology 11/09/19 [address] [place] [address] [place] [facility] Consulting Pulmonary Disease 11/12/19 [address] [place] [address] [facility] 09/06/21 [address] [place] [address] [employer] 12/17/17 [facility] Wound Center 07/23/18 Indian Home Patients 06/20/20 Park Worker Supervisor Relationship Specialty Start Date End Date Panfilo Oreilly MD PCP - General Family Practice 02/12/17 [address] [place] [address] Shreya Mccray MD Endocrinology 07/23/18 [place] [facility] Pulmonary Disease 12/23/18 [address] [place] [address] Brandee Cotter (Board Design Engineer) Consulting Endocrinology 11/09/19 [address], [place] [id number] [place] [facility] Consulting Pulmonary Disease 11/12/19 [address] [place] [address] Robert Sanchez [facility] Pharmacist Pharmacy 09/06/21 [address] [place] [address] [employer] 12/17/17 [facility] Wound Center 07/23/18 Indian Home Patients 06/20/20 Park Worker Supervisor Relationship Specialty Start Date End Date Panfilo Oreilly MD PCP - General Family Practice 02/12/17 1740 [facility] [place] [address] Shreya Mccray MD Endocrinology 07/23/18 [place] [facility] Pulmonary Disease 12/23/18 [address] [place] [address] Brandee Cotter (Board Design Engineer) Consulting Endocrinology 11/09/19 [address] [place] [address] [place] [facility] Consulting Pulmonary Disease 11/12/19 [address] [place] [address] [facility] 09/06/21 [address]40 [facility] [place] [address] [employer] 12/17/17 [facility] Wound Center 07/23/18 Indian Home Patients 06/20/20 Park Worker Supervisor Relationship Specialty Start Date End Date Panfilo Oreilly MD PCP - General Family Practice 02/12/17 [address]40 [facility] [place] [address] Shreya Mccray MD Endocrinology 07/23/18 [place] [facility] Pulmonary Disease 12/23/18 [address] [place] [address] Brandee Cotter (Board Design Engineer) Consulting Endocrinology 11/09/19 [address] [place] [address] [place] [facility] Consulting Pulmonary Disease 11/12/19 [address] [place] [address] Robert Sanchez [facility] Pharmacist Pharmacy 09/06/21 [address] [place] [address] [employer] 12/17/17 [facility] Wound Center 07/23/18 Indian Home Patients 06/20/20 Park Worker Supervisor Relationship Specialty Start Date End Date Panfilo Oreilly MD PCP - General Family Practice 02/12/17 [address] [place] [address] Shreya Mccray MD Endocrinology 07/23/18 [place] [facility] Pulmonary Disease 12/23/18 [address] [place] [address] Brandee Cotter (Board Design Engineer) Consulting Endocrinology 11/09/19 [address] [place] [address] [place] [facility] Consulting Pulmonary Disease 11/12/19 [address] [place] [address] Robert Sanchez [facility] Pharmacist Pharmacy 09/06/21 [address] [place] [address] [employer] 12/17/17 [facility] Wound Center 07/23/18 Indian Home Patients 06/20/20 Park Worker Supervisor Relationship Specialty Start Date End Date Panfilo Oreilly MD PCP - General Family Practice 02/12/17 [address] [place] [address] Shreya Mccray MD Endocrinology 07/23/18 [place] [facility] Pulmonary Disease 12/23/18 [address] [place] [address] Brandee Cotter (Board Design Engineer) Consulting Endocrinology 11/09/19 [address] [place] [address] [place] [facility] Consulting Pulmonary Disease 11/12/19 [address] [place] [address] Robert Sanchez, [facility] Pharmacist Pharmacy 09/06/21 [address] [place] [address] [employer] 12/17/17 [facility] Wound Center 07/23/18 Indian Home Patients 06/20/20 Park Worker Supervisor Relationship Specialty Start Date End Date Panfilo Oreilly MD PCP - General Family Practice 02/12/17 [address] [place] [address] Shreya Mccray MD Endocrinology 07/23/18 [place] [facility] Pulmonary Disease 12/23/18 [address] [place] [address] Brandee Cotter (Board Design Engineer) Consulting Endocrinology 11/09/19 [address] [place] [address] [place] [facility] Consulting Pulmonary Disease 11/12/19 [address] [place] [address] Robert Sanchez [facility] Pharmacist Pharmacy 09/06/21 [address] [place] [address] [employer] 12/17/17 [facility] Wound Center 07/23/18 Indian Home Patients 06/20/20 Park Worker Supervisor Relationship Specialty Start Date End Date Panfilo Oreilly MD PCP - General Family Practice 02/12/17 [address] [place] [address] Shreya Mccray MD Endocrinology 07/23/18 [place] [facility] Pulmonary Disease 12/23/18 [address] [place] [address] Brandee Cotter (Board Design Engineer) Consulting Endocrinology 11/09/19 [address], [place] [id number] [place] [facility] Consulting Pulmonary Disease 11/12/19 [address] [place] [address] Robert Sanchez [facility] Pharmacist Pharmacy 09/06/21 [address] [place] [address] [employer] 12/17/17 [facility] Wound Center 07/23/18 Indian Home Patients 06/20/20 Park Worker Supervisor Relationship Specialty Start Date End Date Panfilo Oreilly MD PCP - General Family Practice 02/12/17 [address] [place] [address] Shreya Mccray MD Endocrinology 07/23/18 [place] [facility] [facility] Pulmonary Disease 12/23/18 [address] [place] [address] Brandee Cotter (Board Design Engineer) Consulting Endocrinology 11/09/19 [address] [place] [address] [place] [facility] Consulting Pulmonary Disease 11/12/19 [address] [place] [address] Robert Sanchez, [facility] Pharmacist Pharmacy 09/06/21 [address] [facility] [place] [address] [employer] 12/17/17 [facility] Wound Center 07/23/18 Indian Home Patients 06/20/20 Park Worker Supervisor Relationship Specialty Start Date End Date Panfilo Oreilly MD PCP - General Family Medicine 02/12/17 [address] [facility] [place] [address] Shreya Mccray MD Endocrinology 07/23/18 [place] [facility]utter Pulmonary Disease 12/23/18 [address] [place] [address] Brandee Cotter (Board Design Engineer) Consulting Endocrinology 11/09/19 [address] [place] [address] [place] [facility] Consulting Pulmonary Disease 11/12/19 [address] [place] [address] Robert Sanchez [facility] Pharmacist Pharmacy 09/06/21 [address] [place] [address] [employer] 12/17/17 [facility] Wound Center 07/23/18 Indian Home Patients 06/20/20 Park Worker Supervisor Relationship Specialty Start Date End Date Panfilo Oreilly MD PCP - General Family Medicine 02/12/17 [address] [place] [address] Shreya Mccray MD Endocrinology 07/23/18 [place] [facility] Pulmonary Disease 12/23/18 [address] [place] [address] Brandee Cotter (Board Design Engineer) Consulting Endocrinology 11/09/19 [address], [place] [id number] [place] [facility] Consulting Pulmonary Disease 11/12/19 [address] [place] [address] Robert Sanchez [facility] Pharmacist Pharmacy 09/06/21 [address] [place] [address] [employer] 12/17/17 [facility] Wound Center 07/23/18 Indian Home Patients 06/20/20 Park Worker Supervisor Relationship Specialty Start Date End Date Panfilo Oreilly MD PCP - General Family Medicine 02/12/17 [address] [place] [address] Shreya Mccray MD Endocrinology 07/23/18 [place] [facility] Cutter Pulmonary Disease 12/23/18 [address] [place] [address] Brandee Cotter (Board Design Engineer) Consulting Endocrinology 11/09/19 [address], [place] [id number] [place] [facility] Consulting Pulmonary Disease 11/12/19 [address] [address] Robert Sanchez [facility] Pharmacist Pharmacy 09/06/21 [address] [place] [address] [employer] 12/17/17 [facility] Wound Center 07/23/18 Indian Home Patients 06/20/20 Park Worker Supervisor Relationship Specialty Start Date End Date Panfilo Oreilly MD PCP - General Family Medicine 02/12/17 [address] [place] [address] Shreya Mccray MD Endocrinology 07/23/18 [place] [facility]utter Pulmonary Disease 12/23/18 [address] [place] [address] Brandee Cotter (Board Design Engineer) Consulting Endocrinology 11/09/19 [address], [place] [id number] [place] [facility] Consulting Pulmonary Disease 11/12/19 [address] [place] [address] Robert Sanchez [facility] Pharmacist Pharmacy 09/06/21 [address] [place] [address] [employer] 12/17/17 [facility] Wound Center 07/23/18 Indian Home Patients 06/20/20 Park Worker Supervisor Relationship Specialty Start Date End Date Panfilo Oreilly MD PCP - General Family Medicine 02/12/17 [address] [place] [address] Shreya Mccray MD Endocrinology 07/23/18 [place] [facility]utter Pulmonary Disease 12/23/18 [address] [place] [address] Brandee Cotter (Board Design Engineer) Consulting Endocrinology 11/09/19 [address] [place] [address] [place] [facility] Consulting Pulmonary Disease 11/12/19 [address] [place] [address] Robert Sanchez [facility] Pharmacist Pharmacy 09/06/21 [address] [place] [address] [employer] 12/17/17 [facility] Wound Center 07/23/18 Indian Home Patients 06/20/20 Park Worker Supervisor Relationship Specialty Start Date End Date Panfilo Oreilly MD PCP - General Family Medicine 02/12/17 [address]40 [facility] [place] [address] Shreya Mccray MD Endocrinology 07/23/18 [address]40 [facility] [place] [address] [place] [facility] Cutter Pulmonary Disease 12/23/18 [address] [place] [address] Brandee Cotter (Board Design Engineer) Consulting Endocrinology 11/09/19 [address], [place] [id number] [place] [facility] Consulting Pulmonary Disease 11/12/19 [address] [place] [address] Robert Sanchez, [facility] Pharmacist Pharmacy 09/06/21 [address] [place] [address] [employer] 12/17/17 [facility] Wound Center 07/23/18 Indian Home Patients 06/20/20 Park Worker Supervisor Relationship Specialty Start Date End Date Panfilo Oreilly MD PCP - General Family Medicine 02/12/17 [address]40 [facility] [place] [address] Shreya Mccray MD Endocrinology 07/23/18 [address] [facility] [place] [address] [place] [facility] Cutter Pulmonary Disease 12/23/18 [address] [address] Brandee Cotter (Board Design Engineer) Consulting Endocrinology 11/09/19 [address] [place] [address] [place] [facility] Consulting Pulmonary Disease 11/12/19 [address] [place] [address] Robert Sanchez [facility] Pharmacist Pharmacy 09/06/21 [address] [place] [address] [employer] 12/17/17 [facility] Wound Center 07/23/18 Indian Home Patients 06/20/20 Park Worker Supervisor Relationship Specialty Start Date End Date Panfilo Oreilly MD PCP - General Family Medicine 02/12/17 [address] [place] [address] Shreya Mccray MD Endocrinology 07/23/18 [address] [place] [address] [place] [facility]illet Cutter Pulmonary Disease 12/23/18 [address] [place] [address] Brandee Cotter (Board Design Engineer) Consulting Endocrinology 11/09/19 [address] [place] [address] [place] [facility] Consulting Pulmonary Disease 11/12/19 [address] [place] [address] Robert Sanchez, [facility] Pharmacist Pharmacy 09/06/21 [address] [place] [address] [employer] 12/17/17 [facility] Wound Center 07/23/18 Indian Home Patients 06/20/20 Park Worker Supervisor Relationship Specialty Start Date End Date Panfilo Oreilly MD PCP - General Family Medicine 02/12/17 [address]40 [facility] [place] [address] Shreya Mccray MD Endocrinology 07/23/18 [address]40 [facility] [place] [address] [place] [facility] Billet Cutter Pulmonary Disease 12/23/18 [address] [place] [address] Brandee Cotter (Board Design Engineer) Consulting Endocrinology 11/09/19 [address], [place] [id number] [place] [facility] Consulting Pulmonary Disease 11/12/19 [address] [place] [address] Robert Sanchez [facility] Pharmacist Pharmacy 09/06/21 [address] [place] [address] [employer] 12/17/17 [facility] Wound Center 07/23/18 [facility] Home Patients 06/20/20 Park Worker Supervisor Relationship Specialty Start Date End Date Panfilo Oreilly MD PCP - General Family Medicine 02/12/17 [address] [place] [address] Shreya Mccray MD Endocrinology 07/23/18 [address] [place] [address] [place] [facility] Cutter Pulmonary Disease 12/23/18 [address] [place] [address] Brandee Cotter (Board Design Engineer) Consulting Endocrinology 11/09/19 [address] [place] [address] [place] [facility] Consulting Pulmonary Disease 11/12/19 [address] [place] [address] Robert Sanchez [facility] Pharmacist Pharmacy 09/06/21 [address] [place] [address] [facility] 12/17/17 [facility] Wound Center 07/23/18 [facility] Home Patients 06/20/20 Park Worker Supervisor Relationship Specialty Start Date End Date Panfilo Oreilly MD PCP - General Family Medicine 02/12/17 [address] [place] [address] Shreya Mccray MD Endocrinology 07/23/18 [address] [place] [address] [place] [facility] Cutter Pulmonary Disease 12/23/18 [address] [place] [address] Brandee Cotter (Board Design Engineer) Consulting Endocrinology 11/09/19 [address] [place] [address] [place] [facility] Consulting Pulmonary Disease 11/12/19 [address] [place] [address] Robert Sanchez [facility] Pharmacist Pharmacy 09/06/21 [address] [place] [address] [employer] 12/17/17 [facility] Wound Center 07/23/18 Indian Home Patients 06/20/20 Park Worker Supervisor Relationship Specialty Start Date End Date Panfilo Oreilly MD PCP - General Family Medicine 02/12/17 [address] [place] [address] Shreya Mccray MD Endocrinology 07/23/18 [address] [place] [address] [place] [facility] Special[facility] Billet Cutter Pulmonary Disease 12/23/18 [address] [place] [address] Brandee Cotter (Board Design Engineer) Consulting Endocrinology 11/09/19 [address], [place] [id number] [place] [facility] Consulting Pulmonary Disease 11/12/19 [address] [place] [address] Robert Sanchez [facility] Pharmacist Pharmacy 09/06/21 [address] [place] [address] [employer] 12/17/17 [facility] Wound Center 07/23/18 [facility] Home Patients 06/20/20 Park Worker Supervisor Relationship Specialty Start Date End Date Panfilo Oreilly MD PCP - General Family Medicine 02/12/17 [address] [place] [address] Shreya Mccray MD Endocrinology 07/23/18 [address]40 [facility] [place] [address] [place] [facility] B[employer] Cutter Pulmonary Disease 12/23/18 [address] [place] [address] Brandee Cotter (Board Design Engineer) Consulting Endocrinology 11/09/19 [address] [place] [address] [place] [facility] Consulting Pulmonary Disease 11/12/19 [address] [place] [address] Robert Sanchez [facility] Pharmacist Pharmacy 09/06/21 [address] [place] [address] [facility] 12/17/17 [facility] Wound Center 07/23/18 [facility] Home Patients 06/20/20 Park Worker Supervisor Relationship Specialty Start Date End Date Panfilo Oreilly MD PCP - General Family Medicine 02/12/17 [address] [place] [address] Shreya Mccray MD Endocrinology 07/23/18 [address] [place] [address] [place] [facility] [employer] Cutter Pulmonary Disease 12/23/18 [address] [place] [address] Brandee Cotter (Board Design Engineer) Consulting Endocrinology 11/09/19 [address] [place] [address] [place] [facility] Consulting Pulmonary Disease 11/12/19 [address] [place] [address] Robert Sanchez [facility] Pharmacist Pharmacy 09/06/21 [address] [place] [address] [facility] 12/17/17 [facility] Wound Center 07/23/18 [facility] Patients 06/20/20 Park Worker Supervisor Relationship Specialty Start Date End Date Panfilo Oreilly MD PCP - General Family Medicine 02/12/17 [address] [place] [address] Shreya Mccray MD Endocrinology 07/23/18 [address] [place] [address] [place] [facility] Cutter Pulmonary Disease 12/23/18 [address] [place] [address] Brandee Cotter (Board Design Engineer) Consulting Endocrinology 11/09/19 [address] [place] [address] [place] [facility] Consulting Pulmonary Disease 11/12/19 [address] [place] [address] Robert Sanchez [facility] Pharmacist Pharmacy 09/06/21 [address] [place] [address] [facility] 12/17/17 [facility] Wound Center 07/23/18 [facility] Patients 06/20/20 Park Worker Supervisor Relationship Specialty Start Date End Date Panfilo Oreilly MD PCP - General Family Medicine 02/12/17 [address]40 [facility] [place] [address] Shreya Mccray MD Endocrinology 07/23/18 [address]40 [facility] [place] [address] [place] [facility] Cutter Pulmonary Disease 12/23/18 [address] [place] [address] Brandee Cotter (Board Design Engineer) Consulting Endocrinology 11/09/19 [address], [place] [id number] [place] [facility] Consulting Pulmonary Disease 11/12/19 [address] [place] [address] Robert Sanchez, [facility] Pharmacist Pharmacy 09/06/21 [address]40 [facility] [place] [address] [employer] 12/17/17 [facility] Wound Center 07/23/18 [facility] Patients 06/20/20 Park Worker Supervisor Relationship Specialty Start Date End Date Panfilo Oreilly MD PCP - General Family Medicine 02/12/17 [address]40 [facility] [place] [address] Shreya Mccray MD Endocrinology 07/23/18 [address]40 [facility] [place] [address] [place] [facility] Cutter Pulmonary Disease 12/23/18 [address] [place] [address] Brandee Cotter (Board Design Engineer) Consulting Endocrinology 11/09/19 [address] [place], [place] [id number] [place] [facility] Consulting Pulmonary Disease 11/12/19 [address] [place] [address] Robert Sanchez [facility] Pharmacist Pharmacy 09/06/21 [address] [place] [address] [facility] 12/17/17 [facility] Wound Center 07/23/18 [facility] Patients 06/20/20 Park Worker Supervisor Relationship Specialty Start Date End Date Panfilo Oreilly, PCP - General Family Medicine 02/12/17 [address] [place] [address] Shreya Mccray, Endocrinology 07/23/18 [address] [place] [address] [place] [facility] [employer] Cutter Pulmonary Disease 12/23/18 [address] [place] [address] Brandee Cotter Consulting Endocrinology 11/09/19 (Board Design Engineer) [address] [place] [address] [place] [facility] Consulting Pulmonary Disease 11/12/19 [address] [place] [address] Robert Sanchez [facility] Pharmacist Pharmacy 09/06/21 [address] [place] [address] Brissa Kilpatrick, [facility] 01/02/23 [facility] Pharmacist [address] [place] [address] Mimi Crowley, optometry teacher 01/01/23 01/29/23 Lightning [employer] 12/17/17 [facility] Wound Center 07/23/18 [facility] Patients 06/20/20 Park Worker Supervisor Relationship Specialty Start Date End Date Panfilo Oreilly, PCP - General Family Medicine 02/12/17 [address] [place], [place] 2318[address] Shreya Mccray, Endocrinology 07/23/18 [address] [place], [place] 785[address] [place] [facility] [employer] Cutter Pulmonary Disease 12/23/18 [address] [place] [address] Brandee Cotter Consulting Endocrinology 11/09/19 (Board Design Engineer) [address] [place] [address] [place] [facility] Consulting Pulmonary Disease 11/12/19 [address] [place] [address] Robert Sanchez, [facility] Pharmacist Pharmacy 09/06/21 [address] [place] [address] Brissa Kilpatrick, [facility] 01/02/23 [facility] Pharmacist [address] [place] [address] Mimi Crowley, optometry teacher 01/01/23 01/29/23 Lightning Rod Installer [employer] 12/17/17 [facility] Wound Center 07/23/18 [facility] Patients 06/20/20 Park Worker Supervisor Relationship Specialty Start Date End Date Panfilo Oreilly, PCP - General Family Medicine 02/12/17 [address] [place], [place] [id number] Shreya Mccray, Endocrinology 07/23/18 [address] [place], [place] [id number] [place] [facility] [employer] Cutter Pulmonary Disease 12/23/18 [address] [place] [address] Brandee Cotter Consulting Endocrinology 11/09/19 (Board Design Engineer) [address] [place], [place] [id number] [place] [facility] Consulting Pulmonary Disease 11/12/19 [address] [place] [address] Robert Sanchez, [facility] Pharmacist Pharmacy 09/06/21 [address] [place] [address] Brissa Kilpatrick, [facility] 01/02/23 [facility] Pharmacist [address] [place] [address] Mimi Crowley, optometry teacher 01/01/23 01/29/23 Lightning Rod Installer [employer] 12/17/17 [facility] Wound Center 07/23/18 [facility] Patients 06/20/20 Park Worker Supervisor Relationship Specialty Start Date End Date Panfilo Oreilly, PCP - General Family Medicine 02/12/17 [address] [place], [place] 694[address] Shreya Mccray, Endocrinology 07/23/18 [address] [place], [place] 578911 [place] [facility] Specialty Billet Cutter Pulmonary Disease 12/23/18 [address] [place] [address] Brandee Cotter Consulting Endocrinology 11/09/19 (Board Design Engineer) [address], [place] [id number] [place] Dumont Consulting Pulmonary Disease 11/12/19 [address] [place] [address] Robert Sanchez, [facility] Pharmacist Pharmacy 09/06/21 [address] [place] [address] Brissa Kilpatrick, Transitional Care Pharmacy 01/02/23 [facility] Pharmacist [address] [place] [address] Mimi Crowley, optometry teacher 01/01/23 01/29/23 Lightning Rod Installer [employer] 12/17/17 [facility] Wound Center 07/23/18 Indian Home Patients 06/20/20 Park Worker Supervisor Relationship Specialty Start Date End Date Panfilo Oreilly, PCP - General Family Medicine 02/12/17 [address] [place], [place] [id number] Shreya Mccray, Endocrinology 07/23/18 [address] [place], [place] [id number] [place] Dumont Specialty Billet Cutter Pulmonary Disease 12/23/18 [address] [place] [address] Brandee Cotter Consulting Endocrinology 11/09/19 (Board Design Engineer) [address] [place] [address] [place] Dumont Consulting Pulmonary Disease 11/12/19 [address] [place] [address] Robert Sanchez, [facility] Pharmacist Pharmacy 09/06/21 [address] [place] [address] Brissa Kilpatrick, Transitional Care Pharmacy 01/02/23 [facility] Pharmacist [address] [place] [address] Mimi Crowley, optometry teacher 01/01/23 01/29/23 Lightning Rod Installer [employer] 12/17/17 [facility] Wound Center 07/23/18 Indian Home Patients 06/20/20 Park Worker Supervisor Relationship Specialty Start Date End Date Panfilo Oreilly, PCP - General Family Medicine 02/12/17 [address] [place], [place] [id number] Shreya Mccray, Endocrinology 07/23/18 [address] [place], [place] [id number] [place] Dumont Specialty Billet Cutter Pulmonary Disease 12/23/18 [address] [place] [address] Brandee Cotter Consulting Endocrinology 11/09/19 (Board Design Engineer) [address] [place] [address] [place] Dumont Consulting Pulmonary Disease 11/12/19 [address] [place] [address] Robert Sanchez, [facility] Pharmacist Pharmacy 09/06/21 [address] [place] [address] Brissa Kilpatrick, Transitional Care Pharmacy 01/02/23 [facility] Pharmacist [address] [place] [address] [employer] 12/17/17 [facility] Wound Center 07/23/18 Indian Home Patients 06/20/20 Park Worker Supervisor Relationship Specialty Start Date End Date Panfilo Oreilly, PCP - General Family Medicine 02/12/17 [address] [place] [address] Shreya Mccray, Endocrinology 07/23/18 [address] [place] [address] [place] Dumont Specialty Billet Cutter Pulmonary Disease 12/23/18 [address] [place] [address] Brandee Cotter Consulting Endocrinology 11/09/19 (Board Design Engineer) [address], [place] [id number] [place] Dumont Consulting Pulmonary Disease 11/12/19 [address] [place] [address] Robert Sanchez [facility] Pharmacist Pharmacy 09/06/21 [address] [place] [address] Brissa Kilpatrick, Transitional Care Pharmacy 01/02/23 [facility] Pharmacist [address] [place], [place] [id number] [employer] 12/17/17 [facility] Wound Center 07/23/18 Indian Home Patients 06/20/20 Park Worker Supervisor Relationship Specialty Start Date End Date Panfilo Oreilly, PCP - General Family Medicine 02/12/17 [address] [place] [address] Shreya Mccray, Endocrinology 07/23/18 [address] [place] [address] [place] Dumont Specialty Billet Cutter Pulmonary Disease 12/23/18 [address] [place] [address] Brandee Cotter Consulting Endocrinology 11/09/19 (Board Design Engineer) [address] [place] [address] [place] Dumont Consulting Pulmonary Disease 11/12/19 [address] [place] [address] Robert Sanchez [facility] Pharmacist Pharmacy 09/06/21 [address] [place] [address] Brissa Kilpatrick, Transitional Care Pharmacy 01/02/23 [facility] Pharmacist [address] [place] [address] Mimi Crowley, optometry teacher 01/01/23 01/13/23 Lightning Rod Installer [employer] 12/17/17 [facility] Wound Center 07/23/18 Indian Home Patients 06/20/20 Park Worker Supervisor Relationship Specialty Start Date End Date Panfilo Oreilly, PCP - General Family Medicine 02/12/17 [address] [place], [place] [id number] Shreya Mccray, Endocrinology 07/23/18 [address] [place] [address] [place] Dumont Specialty Billet Cutter Pulmonary Disease 12/23/18 [address] [place] [address] Brandee Cotter Consulting Endocrinology 11/09/19 (Board Design Engineer) [address] [place] [address] [place] Dumont Consulting Pulmonary Disease 11/12/19 [address] [place] [address] Robert Sanchez, [facility] Pharmacist Pharmacy 09/06/21 [address] [place] [address] Brissa Kilpatrick, Transitional Care Pharmacy 01/02/23 [facility] Pharmacist [address] [place] [address] Raquel Payne, optometry teacher 01/17/23 Lightning Rod Installer [employer] 12/17/17 [facility] Wound Center 07/23/18 Indian Home Patients 06/20/20 Park Worker Supervisor Relationship Specialty Start Date End Date Panfilo Oreilly, PCP - General Family Medicine 02/12/17 [address] [place], [place] 526301 Shreya Mccray, Endocrinology 07/23/18 [address] [place], [place] 677801 [place] Dumont Specialty Billet Cutter Pulmonary Disease 12/23/18 [address] [place] [address] Brandee Cotter Consulting Endocrinology 11/09/19 (Board Design Engineer) [address] [place] [address] [place] Dumont Consulting Pulmonary Disease 11/12/19 [address] [place] [address] Robert Sanchez, [facility] Pharmacist Pharmacy 09/06/21 [address] [place] [address] Brissa Kilpatrick, Transitional Care Pharmacy 01/02/23 [facility] Pharmacist [address] [place] [address] Raquel Payne RN Primary Care 01/17/23 Lightning Rod Installer [employer] 12/17/17 [facility] Wound Center 07/23/18 Indian Home Patients 06/20/20 Park Worker Supervisor Relationship Specialty Start Date End Date Panfilo Oreilly, PCP - General Family Medicine 02/12/17 [address] [place], [place] 549561 Shreya Mccray, Endocrinology 07/23/18 [address] [place], [place] 776991 [place] Dumont Specialty Billet Cutter Pulmonary Disease 12/23/18 [address] [place] [address] Brandee Cotter Consulting Endocrinology 11/09/19 (Board Design Engineer) [address], [place] [id number] [place] Dumont Consulting Pulmonary Disease 11/12/19 [address] [place] [address] Robert Sanchez, [facility] Pharmacist Pharmacy 09/06/21 [address] [place] [address] Brissa Kilpatrick, Transitional Care Pharmacy 01/02/23 [facility] Pharmacist [address] [place] [address] Raquel Payne, optometry teacher 01/17/23 Lightning Rod Installer [employer] 12/17/17 [facility] Wound Center 07/23/18 Indian Home Patients 06/20/20 Park Worker Supervisor Relationship Specialty Start Date End Date Panfilo Oreilly, PCP - General Family Medicine 02/12/17 [address] [place], [place] [id number] Shreya Mccray, Endocrinology 07/23/18 [address] [place], [place] [id number] [place] Dumont Specialty Billet Cutter Pulmonary Disease 12/23/18 [address] [place] [address] Brandee Cotter Consulting Endocrinology 11/09/19 (Board Design Engineer) [address] [place] [address] [place] Dumont Consulting Pulmonary Disease 11/12/19 [address] [place] [address] Robert Sanchez, [facility] Pharmacist Pharmacy 09/06/21 [address] [place] [address] Brissa Kilpatrick, Transitional Care Pharmacy 01/02/23 [facility] Pharmacist [address] [place] [address] Raquel Payne, optometry teacher 01/17/23 Lightning Rod Installer [employer] 12/17/17 [facility] Wound Center 07/23/18 Indian Home Patients 06/20/20 Park Worker Supervisor Relationship Specialty Start Date End Date Panfilo Oreilly, PCP - General Family Medicine 02/12/17 [address] [place], [place] [id number] Shreya Mccray, Endocrinology 07/23/18 [address] [place], [place] [id number] [place] Dumont Specialty Billet Cutter Pulmonary Disease 12/23/18 [address] [place] [address] Brandee Cotter Consulting Endocrinology 11/09/19 (Board Design Engineer) [address], [place] [id number] [place] Dumont Consulting Pulmonary Disease 11/12/19 [address] [place] [address] Robert Sanchez, [facility] Pharmacist Pharmacy 09/06/21 [address] [place] [address] Brissa Kilpatrick, Transitional Care Pharmacy 01/02/23 [facility] Pharmacist [address] [place], [place] [id number] Raquel Payne, optometry teacher 01/17/23 Lightning Rod Installer [employer] 12/17/17 [facility] Wound Center 07/23/18 Indian Home Patients 06/20/20 Park Worker Supervisor Relationship Specialty Start Date End Date Panfilo Oreilly, PCP - General Family Medicine 02/12/17 [address] [place] [address] Shreya Mccray, Endocrinology 07/23/18 [address] [place] [address] [place] Dumont Specialty Billet Cutter Pulmonary Disease 12/23/18 [address] [place] [address] Brandee Cotter Consulting Endocrinology 11/09/19 (Board Design Engineer) [address], [place] [id number] [place] Dumont Consulting Pulmonary Disease 11/12/19 [address] [place] [address] Robert Sanchez [facility] Pharmacist Pharmacy 09/06/21 [address] [place] [address] Raquel Payne, optometry teacher 01/17/23 Lightning Rod Installer [employer] 12/17/17 [facility] Wound Center 07/23/18 Indian Home Patients 06/20/20 Park Worker Supervisor Relationship Specialty Start Date End Date Panfilo Oreilly, PCP - General Family Medicine 02/12/17 [address] [place] [address] Shreya Mccray, Endocrinology 07/23/18 [address] [place] [address] [place] Dumont Specialty Billet Cutter Pulmonary Disease 12/23/18 [address] [place] [address] Brandee Cotter Consulting Endocrinology 11/09/19 (Board Design Engineer) [address], [place] [id number] [place] Dumont Consulting Pulmonary Disease 11/12/19 [address] [place] [address] Robert Sanchez [facility] Pharmacist Pharmacy 09/06/21 [address] [place] [address] Raquel Payne RN Primary Care 01/17/23 Lightning Rod Installer [employer] 12/17/17 [facility] Wound Center 07/23/18 Indian Home Patients 06/20/20 Park Worker Supervisor Relationship Specialty Start Date End Date Panfilo Oreilly, PCP - General Family Medicine 02/12/17 MD [address] [place], [place] 209741 Shreya Mccray, Endocrinology 07/23/18 [address] [place], [place] 980861 [place] Dumont Specialty Billet Cutter Pulmonary Disease 12/23/18 [address] [place] [address] Brandee Cotter Consulting Endocrinology 11/09/19 (Board Design Engineer) [facility] [address], [place] [id number] [place] Dumont Consulting Pulmonary Disease 11/12/19 [address] [place] [address] [facility] 09/06/21 [address] [place] [address] Raquel Payne RN Primary Care 01/17/23 Lightning Rod Installer Dianne Garcia, [facility] General Surgery 02/20/23 HAT AND CAP SEWER.MORTGAGE PROFESSIONAL 1 [facility] [place] [address] [employer] 12/17/17 [facility] Wound Center 07/23/18 Indian Home Patients 06/20/20 Park Worker Supervisor Relationship Specialty Start Date End Date Panfilo Oreilly, PCP - General Family Medicine 02/12/17 [address] [place], [place] 819341 Shreya Mccray, Endocrinology 07/23/18 [address] [place] [address] [place] Dumont Specialty Billet Cutter Pulmonary Disease 12/23/18 [address] [place] [address] Brandee Cotter Consulting Endocrinology 11/09/19 (Board Design Engineer) [address], [place] [id number] [place] Dumont Consulting Pulmonary Disease 11/12/19 [address] [place] [address] Robert Sanchez, [facility] Pharmacist Pharmacy 09/06/21 [address] [place] [address] Dianne Garcia, [facility] General Surgery 02/20/23 HAT AND CAP SEWER.MORTGAGE PROFESSIONAL 1 [place] [address] Annie Borges, [facility] Transitional Care Pharmacy 02/21/23 03/22/23 [address] [facility] [place] [address] Carlos Cline, optometry teacher Internal Medicine 02/21/23 03/23/[address] [place] [address] Veterinarian Laboratory Animal Care Panfilo Oreilly, Home Care Provider Family Medicine 02/21/23 [address] [place], [place] 733621 [employer] 12/17/17 [facility] Wound Center 07/23/18 Indian Home Patients 06/20/20 Park Worker Supervisor Relationship Specialty Start Date End Date Panfilo Oreilly MD PCP - General Family Medicine 02/12/17 [address] [place] [address] Shreya Mccray MD Endocrinology 07/23/18 [address] [place] [address] [place] Dumont Specialty Billet Cutter Pulmonary Disease 12/23/18 [address] [place] [address] Brandee Cotter (Board Design Engineer) Consulting Endocrinology 11/09/19 [address], [place] [id number] [place] Dumont Consulting Pulmonary Disease 11/12/19 [address] [place] [address] Robert Sanchez [facility] Pharmacist Pharmacy 09/06/21 [address] [place] [address] [employer] 12/17/17 [facility] Wound Center 07/23/18 Indian Home Patients 06/20/20 Park Worker Supervisor Relationship Specialty Start Date End Date Panfilo Oreilly, PCP - General Family Medicine 02/12/17 [address] [place] [address] Shreya Mccray, Endocrinology 07/23/18 [address] [place] [address] [place] Dumont Specialty Billet Cutter Pulmonary Disease 12/23/18 [address] [place], [place] 275731 Brandee Cotter Consulting Endocrinology 11/09/19 (Board Design Engineer) [address], [place] [id number] [place] Dumont Consulting Pulmonary Disease 11/12/19 [address] [address] Robert Sanchez [facility] Pharmacist Pharmacy 09/06/21 [address] [place], [place] [id number] Dianne Garcia, [facility] General Surgery 02/20/23 HAT AND CAP SEWER.MORTGAGE PROFESSIONAL 1 [place] [address] Annie Borges [facility] Transitional Care Pharmacy 02/21/23 03/22/23 9500 [facility] [place] [address] Carlos Cline, optometry teacher Internal Medicine 02/21/23 03/23/23 [address] [facility] [place] [address] Veterinarian Laboratory Animal Care Panfilo Oreilly, Home Care Provider Family Medicine 02/21/23 [address] [place], [place] [id number] Bharat Gardner, enrobing machine feederVehicle Operator Technician Post Acute Care 02/21/23 [address] [place] [address] [employer] 12/17/17 [facility] Wound Center 07/23/18 Indian Home Patients 06/20/20 Park Worker Supervisor Relationship Specialty Start Date End Date Panfilo Oreilly, PCP - General Family Medicine 02/12/17 [address] [place], [place] 217801 Shreya Mccray, Endocrinology 07/23/18 [address] [place] [address] [place] Dumont Specialty Billet Cutter Pulmonary Disease 12/23/18 [address] [place] [address] Brandee Cotter Consulting Endocrinology 11/09/19 (Board Design Engineer) [address], [place] [id number] [place] Dumont Consulting Pulmonary Disease 11/12/19 [address] [place] [address] Robert Sanchez, [facility] Pharmacist Pharmacy 09/06/21 [address] [place] [address] Dianne Garcia, [facility] General Surgery 02/20/23 HAT AND CAP SEWER.MORTGAGE PROFESSIONAL 1 [place] [address] Annie Borges, [facility] Transitional Care Pharmacy 02/21/23 03/22/23 [address] [facility] [place] [address] Carlos Cline, optometry teacher Internal Medicine 02/21/23 03/23/[address] [place] [address] Veterinarian Laboratory Animal Care Panfilo Oreilly, Home Care Provider Family Medicine 02/21/23 [address] [place], [place] [id number] Bharat Gardner, enrobing machine feederVehicle Operator Technician Post Acute Care 02/21/23 [address] [place] [place], [place] [id number] [employer] 12/17/17 [facility] Wound Center 07/23/18 Indian Home Patients 06/20/20 Park Worker Supervisor Relationship Specialty Start Date End Date Panfilo Oreilly, PCP - General Family Medicine 02/12/17 [address] [place], [place] [id number] Shreya Mccray, Endocrinology 07/23/18 [address] [place], [place] 31047691 [place] Dumont Specialty Billet Cutter Pulmonary Disease 12/23/18 [address] [place] [address] Brandee Cotter Consulting Endocrinology 11/09/19 (Board Design Engineer) [address], [place] [id number] [place] Dumont Consulting Pulmonary Disease 11/12/19 [address] [place] [address] Robert Sanchez, [facility] Pharmacist Pharmacy 09/06/21 [address] [place] [address] Dianne Garcia, [facility] General Surgery 02/20/23 HAT AND CAP SEWER.MORTGAGE PROFESSIONAL 1 [place] [address] Annie Borges, [facility] Transitional Care Pharmacy 02/21/23 03/22/23 [address] Pharmacist [place], [place] [id number] Carlos Cline, optometry teacher Internal Medicine 02/21/23 03/23/[address] [place] [address] Veterinarian Laboratory Animal Care Panfilo Oreilly, Home Care Provider Family Medicine 02/21/23 [address] [place] [address] Bharat Gardner, enrobing machine feederVehicle Operator Technician Post Acute Care 02/21/23 [address] [place] [address] [employer] 12/17/17 [facility] Wound Center 07/23/18 Indian Home Patients 06/20/20 Park Worker Supervisor Relationship Specialty Start Date End Date Panfilo Oreilly, PCP - General Family Medicine 02/12/17 [address] [place], [place] [id number] Shreya Mccray, Endocrinology 07/23/18 [address] [place] [address] [place] Dumont Specialty Billet Cutter Pulmonary Disease 12/23/18 [address] [place] [address] Brandee Cotter Consulting Endocrinology 11/09/19 (Board Design Engineer) [address] [place] [address] [place] Dumont Consulting Pulmonary Disease 11/12/19 [address] [place] [address] Robert Sanchez, [facility] Pharmacist Pharmacy 09/06/21 [address] [place] [address] Dianne Garcia, [facility] General Surgery 02/20/23 HAT AND CAP SEWER.MORTGAGE PROFESSIONAL 1 [place] [address] Annie Borges [facility] Transitional Care Pharmacy 02/21/23 03/22/23 [address] [facility] [place] [place] [address] Carlos Cline, optometry teacher Internal Medicine 02/21/23 03/23/23 [address] [place] [place] [address] Veterinarian Laboratory Animal Care Panfilo Oreilly, Home Care Provider Family Medicine 02/21/23 [address] [place], [place] [id number] Bharat Gardner, enrobing machine feederVehicle Operator Technician Post Acute Care 02/21/23 [address] [place], [place] 8309131 [employer] 12/17/17 [facility] Wound Center 07/23/18 Indian Home Patients 06/20/20 Park Worker Supervisor Relationship Specialty Start Date End Date Panfilo Oreilly, PCP - General Family Medicine 02/12/17 [address] [place], [place] [id number] Shreya Mccray, Endocrinology 07/23/18 [address] [place] [address] [place] Dumont Specialty Billet Cutter Pulmonary Disease 12/23/18 [address] [place] [address] Brandee Cotter Consulting Endocrinology 11/09/19 (Board Design Engineer) [address], [place] [id number] [place] Dumont Consulting Pulmonary Disease 11/12/19 [address] [place] [address] Robert Sanchez, [facility] Pharmacist Pharmacy 09/06/21 [address] [place] [address] Dianne Garcia, [facility] General Surgery 02/20/23 HAT AND CAP SEWER.MORTGAGE PROFESSIONAL 1 [facility] sigifredo [place], [place] [id number] Annie Borges, [facility] Transitional Care Pharmacy 02/21/23 03/22/23 [address] [facility] [place] [address] Carlos Cline, optometry teacher Internal Medicine 02/21/23 03/23/23 [address] [place] [place] [address] Veterinarian Laboratory Animal Care Pnafilo Oreilly, Home Care Provider Family Medicine 02/21/23 [address] [place], [place] [id number] Bharat Gardner, enrobing machine feederVehicle Operator Technician Post Acute Care 02/21/23 [address] [place], [place] [id number] [employer] 12/17/17 [facility] Wound Center 07/23/18 Indian Home Patients 06/20/20 Park Worker Supervisor Relationship Specialty Start Date End Date Panfilo Oreilly, PCP - General Family Medicine 02/12/17 [address] [place], [place] [id number] Shreya Mccray, Endocrinology 07/23/18 [address] [place], [place] 30185691 [place] Dumont Specialty Billet Cutter Pulmonary Disease 12/23/18 [address] [place] [address] Brandee Cotter Consulting Endocrinology 11/09/19 (Board Design Engineer) [address] [place] [address] [place] Dumont Consulting Pulmonary Disease 11/12/19 [address] [place] [address] Robert Sanchez, [facility] Pharmacist Pharmacy 09/06/21 [address] [place], [place] [id number] Dianne Garcia, [facility] General Surgery 02/20/23 HAT AND CAP SEWER.MORTGAGE PROFESSIONAL 1 [place] [address] Annie Borges, [facility] Transitional Care Pharmacy 02/21/23 03/22/23 [address] [facility] [place] [address] Carlos Cline, optometry teacher Internal Medicine 02/21/23 03/23/23 [address] [place] [place] [address] Veterinarian Laboratory Animal Care Panfilo Oreilly, Home Care Provider Family Medicine 02/21/23 MD [address] [place], [place] [id number] Bharat Gardner, enrobing machine feederVehicle Operator Technician Post Acute Care 02/21/23 [address] [place] [address] [employer] 12/17/17 [facility] Wound Center 07/23/18 Indian Home Patients 06/20/20 Park Worker Supervisor Relationship Specialty Start Date End Date Panfilo Oreilly, PCP - General Family Medicine 02/12/17 [address] [place] [address] Shreya Mccray, Endocrinology 07/23/18 [address] [place] [address] [place] Dumont Specialty Billet Cutter Pulmonary Disease 12/23/18 [address] [place] [address] Brandee Cotter Consulting Endocrinology 11/09/19 (Board Design Engineer) [address], [place] [id number] [place] Dumont Consulting Pulmonary Disease 11/12/19 [address] [place] [address] Robert Sanchez, [facility] Pharmacist Pharmacy 09/06/21 [address] [place] [address] Dianne Garcia, [facility] General Surgery 02/20/23 HAT AND CAP SEWER.MORTGAGE PROFESSIONAL 1 [place] [address] Annie Borges, [facility] Transitional Care Pharmacy 02/21/23 03/22/23 [address] [facility] [place] [address] Carlos Cline, optometry teacher Internal Medicine 02/21/23 03/23/23 [address] [place] [place] [address] Veterinarian Laboratory Animal Care Panfilo Oreilly, Home Care Provider Family Medicine 02/21/23 [address] [place], [place] [id number] Bharat Gardner, enrobing machine feederVehicle Operator Technician Post Acute Care 02/21/23 [address] [place], [place] [id number] [employer] 12/17/17 [facility] Wound Center 07/23/18 Indian Home Patients 06/20/20 Park Worker Supervisor Relationship Specialty Start Date End Date Panfilo Oreilly, PCP - General Family Medicine 02/12/17 [address] [place], [place] 285071 Shreya Mccray, Endocrinology 07/23/18 [address] [place], [place] 27758691 [place] Dumont Specialty Billet Cutter Pulmonary Disease 12/23/18 [address] [place] [address] Brandee Cotter Consulting Endocrinology 11/09/19 (Board Design Engineer) [address], [place] [id number] [place] Dumont Consulting Pulmonary Disease 11/12/19 1761 [facility] [place] [address] Robert Sanchez, [facility] Pharmacist Pharmacy 09/06/21 [address] [place] [address] Dianne Garcia, [facility] General Surgery 02/20/23 HAT AND CAP SEWER.MORTGAGE PROFESSIONAL 1 [place] [address] Annie Borges, [facility] Transitional Care Pharmacy 02/21/23 03/22/23 [address] Pharmacist [place], [place] [id number] Toccaceli, Denille, optometry teacher Internal Medicine 02/21/23 03/23/23 [address] [place] [place] [address] Veterinarian Laboratory Animal Care Panfilo Oreilly, Home Care Provider Family Medicine 02/21/23 [address] [place] [address] Bharat Gardner, enrobing machine feederVehicle Operator Technician Post Acute Care 02/21/23 [id number] [place] [address] [employer] 12/17/17 [facility] 07/23/18 [facility] 06/20/20 INFORMATION SOURCE (unrecognized section and content) DATE CREATED AUTHOR AUTHOR'S ORGANIZ ATION 12/11/2022 [facility] DATE CREATED AUTHOR AUTHOR'S ORGANIZATIO N 02/21/2023 [facility] DATE CREATED AUTHOR AUTHOR'S ORGANIZATIO N 02/28/2023 [facility] FOR RECORDS PERTAINING TO PATIENTS WHO ARE OR HAVE BEEN ENROLLED IN A CHEMICAL DEPENDENCY/SUBSTANCE ABUSE PROGRAM, SOME INFORMATION MAY BE OMITTED. This clinical summary was aggregated from multiple sources. Caution should be exercised in using it in the provision of clinical care. This summary normalizes information from multiple sources, and as a consequence, information in this document may materially change the coding, format and clinical context of patient data. In addition, data may be omittedin some cases. CLINICAL DECISIONS SHOULD BE BASED ON THE PRIMARY CLINICAL RECORDS. [facility] [email or web address] provides no warranty or guarantee of the accuracy or completeness of information in this document.
--- NOTE | 2023-03-02 14:08 | RAD_ITS ---
STUDY: X-RAY CHEST REASON FOR EXAM: Female, 47 years old. CHEST PAIN Cough, dyspnea, wheezing, respiratory failure TECHNIQUE: XR Chest 1 View COMPARISON: 12/18/2022 FINDINGS: There are bilateral pleural effusions. There are bilateral infiltrates. There is moderate cardiac enlargement. Normal mediastinum and evi. Normal visualized pulmonary arteries. Normal visualized aortic arch and descending thoracic aorta. Normal visualized thoracic spine. Normal visualized ribs, clavicles, and shoulders. There is no demonstrated abnormality of the visualized soft tissue structures of the upper abdomen. RAD/Chest 1 View (Portable) IMPRESSION: Pulmonary findings appear worse. Electronically Signed: George Leiva MD at 15:24 EDT ,
--- NOTE | 2023-03-02 14:08 | EKG12_ITS ---
Test Reason : SOB Blood Pressure : / mmHG Vent. Rate : 097 BPM Atrial Rate : 097 BPM P-R Int : 132 ms QRS Dur : 088 ms QT Int : 358 ms P-R-T Axes : 038 004 068 degrees QTc Int : 454 ms Normal sinus rhythm Normal ECG Confirmed by LORENA LORA, HEATHER ([id number]), photographic editor DANIELE MALDONADO ([id number]) on 03/05/2023 9:59:54 AM Referred By: Confirmed By:MU CARRILLO MD
--- NOTE | 2023-03-02 14:27 | ED.VIS.DYS ---
HPI History of Present Illness Chief Complaint: Shortness of Breath Detail of Chief Complaint: As of breath, cough that got worse over the past couple of days. Informant: patient Onset/Context/Timing Onset: Days Context: gradual, rest and exertion Timing: Continuous and Waxes and wanes Quality: Positive for Dyspnea on exertion and Wheezing; Negative for Orthopnea or PND Current Severity: Mild Maximum Severity: Severe Associated Symptoms cough; Negative for rhinorrhea, post nasal drip, ear pain, fever, sore throat, subjective, chills, sweats or clear sputum Chest Pain: Positive for None Narrative Narrative: Patient is a 47-year-old morbidly obese woman with obstructive sleep apnea on chronic oxygen by nasal cannula at 3 L who does admit to smoking approximately a pack a day. After I walked out of the room she admitted to nurse that she has been using electronic cigarettes as well. She is using electronic cigarettes because her friend told her that they are less harmful. Patient endorses cough that is minimally productive. She denies rhinorrhea, congestion. She denies fever. She denies history of PE or DVT. She does endorse history of obstructive sleep apnea, pulmonary hypertension, heart failure, type 2 diabetes. Review of prior records indicates patient has preserved ejection fraction. PE Risk Factors: Negative for Cancer, OCP + Smoking + > 35, Prior DVT or PE, Recent surgery or Recent travel Prior similar symptoms: Yes PFSH [facility] Medical History Abscess Abscess of vulva KERRY (acute kidney injury) Anxiety BiPAP (biphasic positive airway pressure) dependence Chronic diastolic (congestive) heart failure Chronic respiratory failure with hypoxia Contusion of knee, right COPD (chronic obstructive pulmonary disease) Depression Diabetes Dyspnea on exertion Essential hypertension GERD (gastroesophageal reflux disease) Hidradenitis History of left heart catheterization (LHC) (~01/05/19) History of MRSA infection Hyperglycemia due to type 2 diabetes mellitus Hyperlipidemia Hypertension Morbid obesity Necrotizing soft tissue infection Non-healing open wound of left groin NSTEMI (non-ST elevated myocardial infarction) 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 Old myocardial infarction On home oxygen therapy Open wound of vulva with complication Opiate overdose Pulmonary embolism Respiratory failure with hypoxia Restrictive lung disease secondary to obesity Sleep apnea Smoker Soft tissue abscess of inguinal region Tobacco abuse Type 2 diabetes mellitus Home Medications multivit-iron 18 mg-folic acid 400 mcg-calcium 500 mg-minerals tablet 1 ea PO DAILY supplement 03/26/17 [History Last Taken 12/09/22] omeprazole 40 mg capsule,delayed release 40 mg PO DAILY GERD 12/15/18 [History Last Taken 12/09/22] loratadine 10 mg tablet 10 mg PO DAILY PRN Allergies 03/01/20 [History Last Taken 12/09/22] apixaban 5 mg tablet 5 mg PO BID blood thinner 08/20/20 [History Last Taken 12/09/22] diltiazem HCl 120 mg capsule,extended release 24 hr 120 mg PO DAILY heart rate 08/20/20 [History Last Taken 12/09/22] lisinopril 10 mg tablet 10 mg PO DAILY blood pressure 03/26/21 [History Last Taken 12/09/22] metformin 500 mg tablet,extended release 24 hr 2,000 mg PO DAILY diabetes 03/26/21 [History Last Taken 01/15/22] metoprolol succinate 25 mg tablet,extended release 24 hr 25 mg PO DAILY blood pressure 03/26/21 [History Last Taken 12/09/22] atorvastatin 80 mg tablet 100 mg PO QHS Check with primary doctor 02/07/22 [History Last Taken 12/09/22] furosemide 40 mg tablet 40 mg PO BID diuretic 09/22/22 [History Last Taken 12/09/22] ammonium lactate 12 % lotion 1 applic topical TID 30 days #400 grams 09/24/22 [Rx Last Taken 12/08/22] insulin lispro 100 unit/mL subcutaneous pen (Humalog KwikPen (U-100) Insulin) 50 unit (0.5 mL) subcut TIDAC #0 mL 09/24/22 [Rx Last Taken 12/09/22] albuterol sulfate 2.5 mg/3 mL (0.083 %) solution for nebulization 2.5 mg inhalation Q4H PRN SOB 12/09/22 [History Last Taken 12/08/22] empagliflozin 10 mg tablet (Jardiance) 10 mg PO DAILY DM 12/09/22 [History Last Taken 12/09/22] fenofibrate nanocrystallized 145 mg tablet 145 mg PO DAILY CHOLESTEROL 12/09/22 [History Last Taken 12/09/22] furosemide 20 mg tablet 20 mg PO PRN PRN Edema 12/09/22 [History Last Taken Unknown] gabapentin 800 mg tablet 800 mg PO TID NERVE PAIN 12/09/22 [History Last Taken 12/09/22] insulin glargine U-300 conc 300 unit/mL (3 mL) subcutaneous pen (Toujeo Max U-300 SoloStar) 150 unit subcut DAILY DM 12/09/22 [History Last Taken 12/09/22] nicotine (polacrilex) 2 mg buccal mini lozenge 2 mg PO PRN PRN Smoking Cessation 12/09/22 [History Last Taken 12/08/22] potassium chloride 20 mEq tablet,extended release 20 meq PO BID Check with primary doctor 12/19/22 [History Last Taken Unknown] insulin degludec 200 unit/mL (3 mL) subcutaneous pen (Tresiba FlexTouch U-200 insulin) 104 unit subcut BID DM 12/24/22 [History Last Taken Unknown] Allergy/AdvReac Type Severity Reaction Status Date / Time cyclobenzaprine HCl Allergy Hives Verified 03/02/23 14:00 [From Flexeril] venlafaxine [From Effexor] AdvReac Severe unknown Verified 03/02/23 14:00 Family History Father CVA (cerebral vascular accident) Heart disease Diabetes Mother Thyroid disorder Surgical History H/O arthroscopic knee surgery History of delivery History of cholecystectomy Social History household members: none Smoking Status: Current some day smoker tobacco type: cigarettes how long ago did patient quit smokin PPD smoker second hand exposure: Yes alcohol intake: never substance use type: does not use caffeine: Yes Type: carbonated beverages Number of servings: 1 and coffee Number of servings: 1 ROS ROS ED Constitutional Constitutional ED: Reports sweats; Denies chills, fever(s) or weight loss Eyes Eyes: Denies blurry vision, change in vision or diplopia ENT ENT ED: Denies ear pain or rhinorrhea Cardiovascular Cardiovascular: Reports orthopnea; Denies chest pain, palpitations, paroxysmal nocturnal dyspnea or racing heartbeat Respiratory/Chest Respiratory/Chest: Reports cough, dyspnea, dyspnea on exertion and orthopnea; Denies paroxysmal nocturnal dyspnea Gastrointestinal Gastrointestinal: Denies abdominal pain, diarrhea, nausea or vomiting Genitourinary Genitourinary ED: Denies dysuria, hematuria or urinary frequency Musculoskeletal Musculoskeletal: Denies arthralgias, back pain, myalgias or neck pain Neurologic Neurologic: Reports weakness; Denies headache(s) or paresthesias Psychiatric Psychiatric: Denies anxiety Endocrine Endocrinology: Denies cold intolerance or heat intolerance Hematologic/Lymphatic Hematologic/Lymphatic: Denies easy bleeding or easy bruising EXAM Physical Exam Const Vital Signs: 03/02/23 13:55 03/02/23 14:23 03/02/23 14:32 Temperature 97.1 F L Temperature Source Temporal Pulse Rate 106 H 95 Respiratory Rate 22 H 19 H Respiratory Effort Respiratory Depth Respiratory Pattern Blood Pressure 119/60 Blood Pressure Mean 79 Pulse Ox 87 92 Oxygen Delivery Method Nasal Cannula High Flow Oxygen Flow Rate (L/min) 5 8 Fraction of Inspired Oxygen (FIO2) 03/02/23 15:00 03/02/23 15:03 03/02/23 14:50 Temperature Temperature Source Pulse Rate 95 Respiratory Rate 24 H 24 H Respiratory Effort Short of Breath Respiratory Depth Shallow Respiratory Pattern Tachypnea Blood Pressure 108/64 Blood Pressure Mean 78 Pulse Ox 91 91 Oxygen Delivery Method Bi-pap Nasal Cannula Oxygen Flow Rate (L/min) 3 Fraction of Inspired Oxygen (FIO2) 35 Positive well nourished, well developed and obese Constitutional Narrative: Patient is tachypneic and tachycardic. She is hypoxic on 5 L. She is normally on 3 L. General Appearance ED: well developed and pallor; Negative for NAD Nutritional Appearance: obese HEENT Reports dry mucous membranes HEENT Narrative: Head is atraumatic normocephalic. Ears normal. Nares patent. Posterior pharynx is unremarkable. Mouth ED: Yes dry mucous membranes Mouth: dry mucous membranes Eyes PERRL and EOMs intact bilaterally General Eye ED: Negative for pale conjunctiva or scleral icterus Neck no lymphadenopathy, supple, no meningeal signs and no JVD Neck Narrative: There is no inspiratory expiratory stridor. Resp normal respiratory effort and No clear to auscultation bilaterally Auscultation: rales bilateral base and wheezes expiratory wheezes and scattered wheezes Cardio regular rhythm, S1 normal heart sound, S2 normal heart sound and no murmurs Rate: tachycardic GI non-tender, non-distended and no masses Back/Spine no CVA tenderness and normal to inspection Extremity Negative for normal to inspection General Extremety ED: Yes edema; Negative for tenderness General Extremity: edema Neuro oriented x3, CN's II-XII intact bilaterally and no sensory deficits noted [place] Coma Scale: document GCS findings Spontaneous Obeys Commands Oriented 15 Sensorium / Orientation: Negative for alert Psych Mood & Affect: depressed Skin no wounds and skin turgor normal General Skin Exam: pallor MDM MDM MDM Narrative Medical decision making narrative: Patient with history of chronic respiratory failure requiring significant more oxygen. Since she is not alert we will obtain VBG to assess acid-base status and specifically CO2. Because there are rales noted at the base and expiratory wheezing throughout will obtain chest x-ray to assess for pneumonia. We will also treat with DuoNeb, albuterol and Solu-Medrol. The Solu-Medrol may cause her blood sugar to rise since she has type 2 diabetes. The rales may be due to heart failure as well. And she does have history of heart failure. Will obtain a BNP. CBC was obtained assess white count as well as H&H to rule out anemia as a cause of her increased dyspnea. Basic metabolic panel to assess renal function, glucose/CO2 anion gap. Patient has evidence of a metabolic acidosis as well as respiratory acidosis probably acute on chronic. Patient was placed on BiPAP. Since patient has elevated lactate tachycardia, tachypnea requiring BiPAP she has severe sepsis. Since she has not been hospitalized since October she was treated with Rocephin and azithromycin. History & Record Review Discussion w/independent historian: EMS personnel and Patient Additional record(s) reviewed:: Prior inpatient record, Prior outpatient record, Prior ED visit and Other (History of congestive heart failure with preserved ejection fraction, chronic respiratory failure on oxygen, community-acquired pneumonia requiring admission.) Lab Data Attestation: I reviewed the patient's lab results. Lab results narrative: White count is elevated with slight shift. Patient is anemic with an H&H of 9.4 and 33.0. Comprehensive metabolic panel shows a glucose of 261 with normal CO2 and anion gap. Lactate is elevated 2.6. This may be due to hypoxia Labs: Laboratory Results - last 24 hr 03/02/23 03/02/23 03/02/23 14:20 14:20 14:20 WBC 12.6 H RBC 3.59 L Hgb 9.4 L Hct 33.0 L MCV 91.9 MCH 26.2 L MCHC 28.5 L RDW Std Deviation 57.3 H RDW Coeff of Darrion 17.0 H Plt Count 278 MPV 9.6 Immature Gran % (Auto) 1.600 H Neut % (Auto) 77.6 H Lymph % (Auto) 15.5 L Morris % (Auto) 3.8 Eos % (Auto) 0.7 Baso % (Auto) 0.8 Absolute Neuts (auto) 9.7 H Absolute Lymphs (auto) 1.94 Nucleated RBC % 2.3 Sodium 136 Potassium 4.4 Chloride 102 Carbon Dioxide 30.0 Anion Gap 4 L BUN 12 Creatinine 0.88 Estim Creat Clear Calc 72.64 Est GFR (MDRD) Af Amer 89 Est GFR (MDRD) Non-Af 73 BUN/Creatinine Ratio 13.6 Glucose 261 H Lactic Acid 2.6 H* Calcium 8.9 Total Bilirubin 0.30 AST 14 L ALT 18 Alkaline Phosphatase 59 B-Natriuretic Peptide Total Protein 7.2 Albumin 2.7 L Globulin 4.5 H Albumin/Globulin Ratio 0.6 L POC Glucose 03/02/23 03/02/23 14:20 14:24 WBC RBC Hgb Hct MCV MCH MCHC RDW Std Deviation RDW Coeff of Darrion Plt Count MPV Immature Gran % (Auto) Neut % (Auto) Lymph % (Auto) Morris % (Auto) Eos % (Auto) Baso % (Auto) Absolute Neuts (auto) Absolute Lymphs (auto) Nucleated RBC % Sodium Potassium Chloride Carbon Dioxide Anion Gap BUN Creatinine Estim Creat Clear Calc Est GFR (MDRD) Af Amer Est GFR (MDRD) Non-Af BUN/Creatinine Ratio Glucose Lactic Acid Calcium Total Bilirubin AST ALT Alkaline Phosphatase B-Natriuretic Peptide 68.4 Total Protein Albumin Globulin Albumin/Globulin Ratio POC Glucose 250 H ABG Data ABG results: ABG 03/02/23 14:42 Specimen Type DAMION VBG pH 7.29 L VBG pO2 60 H VBG HCO3 32 H VBG Total CO2 34 H VBG O2 Sat (Calc) 87 H VBG Base Excess 6 H POC Mix VBG pCO2 Pt Tmp 67.1 H Radiography Chest X-Ray - ED: 1 View and Read by ED Physician (X-ray was independent reviewed interpreted by me at 1515. Patient has a significant infiltrate on the right. The film is rotated. Comparison film December 18, 2022. There is a significant difference. There is no curly B-lines and there is no cephalization doubt this to be heart failure.) Diagnostic Testing: Clinical Impression(s) from Imaging Studies Chest X-Ray 03/02/23 14:08 IMPRESSION: Pulmonary findings appear worse. Electronically Signed: George Leiva MD at 15:24 EDT , EKG Initial EKG: Attestation: I personally reviewed and interpreted this EKG as follows: Interpretation: Sinus Rhythm (97. EKG is normal. The CO interval is 132, QRS duration 88 ms, QT duration 358 ms and the axis is normal.) Prior: Unchanged (Prior EKG was dated December 18, 2022) Critical Care Time Critical Care Time: Yes Critical care time (excluding procedures): 30-74 minutes (42), Including time spent: (History, physical, documentation, review of prior records, interpretation of laboratory results initiation of therapy and interpretation of chest x-ray), Discussing w/Patient &/or Family/Microsoft Office Instructor, Discussing w/Consultants, Arranging Admission or Transfer and Performing Direct Patient Care at Bedside (Repeat examinations x3) Discharge Plan Dx/Rx/DC Orders Clinical Impression: Acute on chronic respiratory failure with hypercapnia, Type 2 diabetes mellitus with hyperglycemia, Community acquired pneumonia, Acute on chronic respiratory failure with hypoxemia, Acute bronchospasm, Severe sepsis, Acidosis, lactic Disposition Disposition: Acute Care [facility]
[2023-03-02] MEDS: Ipratropium/Albuterol Sulfate 3 ML AMPUL.NEB INHALATION ×2 (14:30→19:03)
[2023-03-02 14:31] LABS: Absolute Lymphocyte Count 1.94 X10^3/uL (0.83-4.51); Absolute Neutrophil Count 9.7 X10^3/uL (2.0-7.7); Basophil% 0.8 % (0-1); Eosinophil# 0.09 X10^3/uL; Eosinophils% 0.7 % (0-5); Hemoglobin 9.4 g/dL (12.0-15.0); Lymphocyte # 1.94 X10^3/ul (0.83-4.51); Lymphocyte % 15.5 % (19-41); Mean Corp Hgb Conc 28.5 g/dL (32-36); Mean Corpuscular Hgb 26.2 pg (27.0-32.0); Mean Corpuscular Volume 91.9 fL (81-99); Mean Platelet Vol. 9.6 fl (6.2-12.0); Monocyte# 0.48 X10^3/uL; Monocyte% 3.8 % (0-10); NRBC Flagged by Analyzer 2.3 % (0-5); Neutrophil # 9.74 X10^3/uL (2.7-7.7); Neutrophil % 77.6 % (47-70); Platelet Count 278 K/mm3 (150-450); RBC Distribution Width SD 57.3 fl (35.1-43.9); Red Blood Count 3.59 M/mm3 (4.2-5.4); White Blood Count 12.6 K/mm3 (4.4-11.0)
[2023-03-02] MEDS: Albuterol 2.5 MG/3 ML VIAL.NEB. INHALATION ×3 (14:32→14:37)
[2023-03-02 14:44] LABS: ALB/GLOB Ratio 0.6 RATIO (0.9-2.4); AST(SGOT) 14 U/L (15-37); Alanine Aminotransfer ALT/SGPT 18 U/L (13-56); Albumin, Serum 2.7 g/dL (3.2-5.0); Alkaline Phosphatase 59 U/L (45-117); Anion Gap 4 (5-15); BUN 12 mg/dL (7-18); BUN/Creat Ratio 13.6 RATIO (10-20); Calcium,Total 8.9 mg/dL (8.5-10.1); Chloride 102 mmol/L (98-107); Creatinine, Serum 0.88 mg/dL (0.55-1.02); EST Glomerular Filtration Rate 73 mL/min (>60); Est Glom Filt Rate - Afr Amer 89 mL/min (>60); Estimated Creatinine Clearance 72.64 ml/min; Globulin 4.5 g/dL (2.2-4.2); Glucose 261 mg/dL (74-106); Potassium 4.4 mmol/L (3.5-5.1); Protein, Total 7.2 g/dL (6.4-8.2); Sodium Level 136 mmol/L (136-145)
[2023-03-02 14:45] LABS: Blood Gas Specimen Type VEN; VBG BASE EXCESS 6 mmol/L (-1.0-3.5); VBG Bicarbonate 32 mmol/L (22-26); VBG PO2 60 mmHg (25-40); VBG SO2 87 % (50-70); VBG TCO2 34 mmol/L (23-33); VBG pCO2 67.1 mmHg (41-51); VBG pH 7.29 (7.32-7.42)
[2023-03-02] MEDS: MethylPREDNISolone 125 MG/2 ML Vial IV (14:47)
--- OUTSIDE RECORDS SUMMARY | 2023-03-02 14:51 | XMS RPT_ITS | CCD ---
:1975 [facility] Providers Name Role Phone Panfilo Oreilly MD Primary Care Provider Shreya Mccray Unavailable [place] Dumont Unavailable Brandee Cotter ([facility]) Unavailable [place] Dumont Unavailable [facility], Robert Unavailable PANFILO OREILLY Referring Unavailable PANFILO OREILLY Primary Care Unavailable Panfilo Oreilly MD Primary Care Provider Shreya Mccray MD Unavailable [place] Dumont Unavailable Brandee Cotter ([facility]) Unavailable [place] Dumont Unavailable [facility], Robert Unavailable Shonna [facility], Brissa Unavailable Keo RN, Mimi Unavailable Unavailable Keo VENTURA, Mimi Unavailable Unavailable Raquel Payne RN Unavailable Unavailable Jose WILLIS, Dianne Unavailable PANFILO OREILLY Primary Care Unavailable PANFILO OREILLY Primary Care Unavailable GILDA KIMBROUGH Admitting Unavailable MEGHAN JOHNSON Attending Unavailable CONRADO PUTNAM Consulting Unavailable PANFILO OREILLY Primary Care Unavailable HUBERT LEBLANC Admitting Unavailable MEGHAN JOHNSON Attending Unavailable WALTER YOUNG Consulting Unavailable HUBERT LEBLANC Referring Unavailable BURSLEY, CHRISTOPHER B Primary Care Unavailable CODY OLSON Admitting Unavailable MEGHAN JOHNSON Attending Unavailable BURSLEY, CHRISTOPHER B Primary Care Unavailable Borges [facility], Annie Unavailable Son VENTURA, Carlos Unavailable [...] mouth twice mg tab(s) daily Indications: [place] pulmonary embol ism without acute c or [...] 20 mg tabl et daily Indications: [place] diastolic CHF (congestive hea rt failure) ([facility]) , Bilateral lower extremity edema Take 1 tablet by rosalee th twice daily. Ta ke BID with 80 mg lasix to equal 100 mg BID 60 tablet 2 12/12/2022 Acti ve Start: 03-29-2022 furosemide (LASIX) 4 0 mg tablet Indications: Chronic diastolic End: 07-09-2022 heart failure ([facility]) Take 1-2 tablets BID for lower extremity edema 120 tablet 5 0 07/09/2022 Active Start: 12-12-2021 furosemide (LASIX) 4 0 mg tablet Indications: Chronic diastolic End: 01-14-2022 heart failure ([facility]) Take 1-2 tablets BID for [...] with long-term curre nt use of insulin ([facility] ) TAKE 1 TABLET BY ROSALEE TH THREE TIMES A D AY 90 tablet 2 2022 Active Start: 12-12-2021 gabapentin (NEURONTI N) 300 mg capsule 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, with long-term current use of insul in ([facility]) Take three tablets in the [...] let by mouth as needed for pain (dairnel ssing changes once daily) for up t [...] into peritoneal cavity, initial encounter] 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) 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: Episo dic (2 sources) use [...] Range Facility CNPN on 02-25-2023 CNPN Normal [facility] CNPN on 02-24-2023 CNPN Normal [facility] CNCO on 02-21-2023 CNCO Letter Text Normal [facility] CNPN on 02-21-2023 CNPN Normal [facility] CNPTOUTREACH on 02-21-2023 CNPTOUTREACH Normal [facility] Basic metabolic 2000 panel on 3 Anion gap [Moles/Vol] 8 mmol/L Low - [facility] Comment on above: Order Comment: Specimen Type : BLOOD SPECIMENOrdering Facility: [facility] Address: [address] [place], [place] [id number] Performed By: #### 41018-3 # ###[facility] LABORATORYCLIA [id number] [place] [address] [place] Calcium [Mass/Vol] 8.9 mg/dL Normal 8.5-10.2 [facility] Comment on above: Order Comment: Specimen Type : BLOOD SPECIMENOrdering Facility: [facility] Address: [address] [place] [address] Performed By: #### 01426-6 # ###[facility] LABORATORYCLIA [id number] [place] [address] [place] Chloride [Moles/Vol] 99 mmol/L Normal 97-105 [facility] Comment on above: Order Comment: Specimen Type : BLOOD SPECIMENOrdering Facility: [facility] Address: [address] [address] Performed By: #### 35938-2 # ###[facility] LABORATORYCLIA [id number] [place] [address] [place] CO2 [Moles/Vol] 30 mmol/L Normal 22-30 [facility] Comment on above: Order Comment: Specimen Type : BLOOD SPECIMENOrdering Facility: [facility] Address: [address] [address] Performed By: #### 45816-2 # ###[facility] LABORATORYCLIA [id number] [place] [address] [place] Creatinine [Mass/Vol] 0.59 mg/dL Normal 0.58-0.96 [facility] Comment on above: Order Comment: Specimen Type : BLOOD SPECIMENOrdering Facility: [facility] Address: [address] [address] Performed By: #### 36581-4 # ###[facility] LABORATORYCLIA [id number] [address] [place] ESTIMATED GLOMERULAR 113 mL/min/1.73m??? Normal >=60 [facility] FILTRATION RATE [place] Comment on above: Order Comment: Specimen Type : BLOOD SPECIMENOrdering Facility: [facility] Address: [address] [place] [address] Result Comment: Estimated Gl omerular Filtration Rate [...] accurately reflect actual GFR. Performed By: #### 10037-9 # ###[facility] INSTITUTECLIA [id number] [place] [address] [place] Glucose [Mass/Vol] 127 mg/dL High 74-99 [facility] Comment on above: Order Comment: Specimen Type : BLOOD SPECIMENOrdering Facility: [facility] Address: [address] [phone] Result Comment: The Prydeinig Diabetes Association (ADA) provides guidance for cutoff [...] of Medical Care in Diabetes 2016, [facility] Diabetes Association. Diabetes Care. 2016.39(Suppl 1). Performed By: #### 35216-5 # ###[facility] LABORATORYIA [id number] [place] [address] [place] Potassium [Moles/Vol] 4.3 mmol/L Normal 3.7-5.1 [facility] Comment on above: Order Comment: Specimen Type : BLOOD SPECIMENOrdering Facility: [facility] Address: [address] [place] [address] Performed By: #### 48217-8 # ###[facility] LABORATORYCLIA [id number] [place] [address] [place] Sodium [Moles/Vol] 137 mmol/L Normal 136-144 [facility] Comment on above: Order Comment: Specimen Type : BLOOD SPECIMENOrdering Facility: [facility] Address: [address] [address] Performed By: #### 22351-5 # ###[facility] LABORATORYCLIA [id number] [place] [address] [place] Urea nitrogen [Mass/Vol] 8 mg/dL Normal 7-21 [facility] Comment on above: Order Comment: Specimen Type : BLOOD SPECIMENOrdering Facility: [facility] Address: [address] [address] Performed By: #### 61865-0 # ###[facility] LABORATORYCLIA [id number] [place] [address] [facility] [place] CASE MANAGEM on 02-20-2023 CASE MANAGEM Normal [facility] CBC panel Auto (Bld) on 02-20-2023 Erythrocyte distribution width 16.0 % High 11.5-15.0 [facility] (RBC) [Ratio] Comment on above: Order Comment: Specimen Type : BLOOD SPECIMENOrdering Facility: [facility] Address: [address] [address] Performed By: #### 91248-8 # ###[facility] LABORATORYCLIA [id number] [place] [address] [place] Hematocrit (Bld) [Volume fraction] 31.3 % Low 36.0-4 6.0 [facility] Comment on above: Order Comment: Specimen Type : BLOOD SPECIMENOrdering Facility: [facility] Address: [address] [address] Performed By: #### 19145-6 # ###[facility] LABORATORYCLIA [id number] [address] [place] Hemoglobin (Bld) [Mass/Vol] 8.8 g/dL Low 11.5-15.5 [facility] Comment on above: Order Comment: Specimen Type : BLOOD SPECIMENOrdering Facility: [facility] Address: [address] [address] Performed By: #### 43847-5 # ###[facility] LABORATORYCLIA [id number] [address] MCH (RBC) [Entitic mass] 25.8 pg Low 26.0-34.0 [facility] Comment on above: Order Comment: Specimen Type : BLOOD SPECIMENOrdering Facility: [facility] Address: [address] [address] Performed By: #### 78967-2 # ###[facility] LABORATORYCLIA [id number] [address] MCHC (RBC) [Mass/Vol] 28.1 g/dL Low 30.5-36.0 [facility] Comment on above: Order Comment: Specimen Type : BLOOD SPECIMENOrdering Facility: [facility] Address: [address] [address] Performed By: #### 54862-3 # ###[facility] LABORATORYCLIA [id number] [address] MCV (RBC) [Entitic vol] 91.8 fL Normal 80.0-100.0 [facility] Comment on above: Order Comment: Specimen Type : BLOOD SPECIMENOrdering Facility: [facility] Address: [address] [address] Performed By: #### 79573-6 # ###[facility] LABORATORYCLIA [id number] [address] Nucleated RBC (Bld) [#/Vol] 0.02 10*3/uL High <0.01 [facility] Comment on above: Order Comment: Specimen Type : BLOOD SPECIMENOrdering Facility: [facility] Address: [address] [address] Performed By: #### 80958-2 # ###[facility] LABORATORYCLIA [id number] [place] [address] [place] Platelet mean volume (Bld) 9.8 fL Normal 9.0-12.7 [facility] [Entitic vol] Comment on above: Order Comment: Specimen Type : BLOOD SPECIMENOrdering Facility: [facility] Address: [address] [place] [address] Performed By: #### 34396-8 # ###[facility] LABORATORYCLIA [id number] [facility] [place] Platelets (Bld) [#/Vol] 264 10*3/uL Normal 150-400 [facility] Comment on above: Order Comment: Specimen Type : BLOOD SPECIMENOrdering Facility: [facility] Address: [address] [address] Performed By: #### 61538-7 # ###[facility] LABORATORYCLIA [id number] [facility], [place] [address] [place] RBC (Bld) [#/Vol] 3.41 10*6/uL Low 3.90-5.20 [facility] Comment on above: Order Comment: Specimen Type : BLOOD SPECIMENOrdering Facility: [facility] Address: [address] [address] Performed By: #### 65361-4 # ###[facility] LABORATORYCLIA [id number] [facility] [place] [place] WBC (Bld) [#/Vol] 9.61 10*3/uL Normal 3.70-11.00 [facility] Comment on above: Order Comment: Specimen Type : BLOOD SPECIMENOrdering Facility: [facility] Address: [address] [address] Performed By: #### 13174-4 # ###[facility] LABORATORYCLIA [id number] [facility], [facility] [place] CNDS on 02-20-2023 CNDS Normal [facility] CNPN on 02-20-2023 CNPN Normal [facility] CONSULT PROG on 02-20-2023 CONSULT PROG Normal [facility] CONSULT PROG Normal [facility] CONSULT PROG Normal [facility] aPTT PPP on 02-20-2023 aPTT Coag (PPP) [Time] 45.5 s High 23.0-32.4 [facility] Comment on above: Order Comment: Specimen Type : BLOOD SPECIMENOrdering Facility: [facility] Address: [address] [place] [address] Performed By: #### 58610-6 # ###[facility] LABORATORYCLIA [id number] [address] [place] aPTT Coag (PPP) [Time] 39.7 s High 23.0-32.4 [facility] Comment on above: Order Comment: Specimen Type : BLOOD SPECIMENOrdering Facility: [facility] Address: [address] [place] [address] Performed By: #### 10483-9 # ###[facility] LABORATORYCLIA [id number] [facility], [place] [address] [place] ALLIED HEALTH on 02-19-2023 ALLIED HEALTH Normal [facility] Basic metabolic 2000 panel on 3 Anion gap [Moles/Vol] 7 mmol/L Low 9-18 [facility] Comment on above: Order Comment: Specimen Type : BLOOD SPECIMENOrdering Facility: [facility] Address: [address] [place] [address] Performed By: #### 95114-8 # ###[facility] LABORATORYCLIA [id number] [facility], [place] [address] [place] Calcium [Mass/Vol] 8.9 mg/dL Normal 8.5-10.2 [facility] Comment on above: Order Comment: Specimen Type : BLOOD SPECIMENOrdering Facility: [facility] Address: [address] [place] [address] Performed By: #### 69862-6 # ###[facility] LABORATORYCLIA [id number] [facility], [place] [address] [place] Chloride [Moles/Vol] 103 mmol/L Normal 97-105 [facility] Comment on above: Order Comment: Specimen Type : BLOOD SPECIMENOrdering Facility: [facility] Address: [address] [place] [address] Performed By: #### 50318-4 # ###[facility] INSTITUTECLIA [id number] [address] [place] CO2 [Moles/Vol] 30 mmol/L Normal 22-30 [facility] Comment on above: Order Comment: Specimen Type : BLOOD SPECIMENOrdering Facility: [facility] Address: [address] [address] Performed By: #### 99901-8 # ###[facility] HOSPITALIA [id number] [address] [place] Creatinine [Mass/Vol] 0.65 mg/dL Normal 0.58-0.96 [facility] Comment on above: Order Comment: Specimen Type : BLOOD SPECIMENOrdering Facility: [facility] Address: [address] [address] Performed By: #### 78317-4 # ###[facility]OSPITALIA [id number] [address] ESTIMATED GLOMERULAR 111 mL/min/1.73m??? Normal >=60 [facility] FILTRATION RATE Center Comment on above: Order Comment: Specimen Type : BLOOD SPECIMENOrdering Facility: [facility] Address: [address] [place] [address] Result Comment: Estimated Gl omerular Filtration Rate [...] accurately reflect actual GFR. Performed By: #### 30549-1 # ###[facility] LABORATORYCLIA [id number] [address] [place] Glucose [Mass/Vol] 154 mg/dL High 74-99 [facility] Comment on above: Order Comment: Specimen Type : BLOOD SPECIMENOrdering Facility: [facility] Address: [address] [place] [address] Result Comment: The Prydeinig Diabetes Association (ADA) provides guidance for cutoff [...] Standards of Medical Care in Diabetes 2016, [facility] Diabetes Association. Diabetes Care. 2016.39(Suppl 1). Performed By: #### 13165-7 # ###[facility] LABORATORYCLIA [id number] [place] [address] [place] Potassium [Moles/Vol] 4.5 mmol/L Normal 3.7-5.1 [facility] Comment on above: Order Comment: Specimen Type : BLOOD SPECIMENOrdering Facility: [facility] Address: [address] [place] [address] Performed By: #### 39106-3 # ###[facility] LABORATORYCLIA [id number] [place] [address] [place] Sodium [Moles/Vol] 140 mmol/L Normal 136-144 [facility] Comment on above: Order Comment: Specimen Type : BLOOD SPECIMENOrdering Facility: [facility] Address: [address] [place] [address] Performed By: #### 35205-0 # ###[facility] LABORATORYCLIA [id number] [place] [address] [place] Urea nitrogen [Mass/Vol] 11 mg/dL Normal 7-21 [facility] Comment on above: Order Comment: Specimen Type : BLOOD SPECIMENOrdering Facility: [facility] Address: [address] [address] Performed By: #### 28481-2 # ###[facility] LABORATORYCLIA [id number] [address] [place] CASE MGT INIT ASSES on 02-19-2023 CASE MGT INIT ASSES Normal [facility] CBC panel Auto (Bld) on 02-19-2023 Erythrocyte distribution width 16.4 % High 11.5-15.0 [facility] (RBC) [Ratio] Comment on above: Order Comment: Specimen Type : BLOOD SPECIMENOrdering Facility: [facility] Address: [address] [place] [address] Performed By: #### 93524-9 # ###[facility] LABORATORYCLIA [id number] [address] [place] Hematocrit (Bld) [Volume fraction] 32.1 % Low 36.0-4 6.0 [facility] Comment on above: Order Comment: Specimen Type : BLOOD SPECIMENOrdering Facility: [facility] Address: [address] [place] [address] Performed By: #### 17490-2 # ###[facility] LABORATORYCLIA [id number] [address] [place] Hemoglobin (Bld) [Mass/Vol] 9.3 g/dL Low 11.5-15.5 [facility] Comment on above: Order Comment: Specimen Type : BLOOD SPECIMENOrdering Facility: [facility] Address: [address] [address] Performed By: #### 08847-4 # ###[facility] LABORATORYCLIA [id number] [address] [place] MCH (RBC) [Entitic mass] 26.6 pg Normal 26.0-34.0 [facility] Comment on above: Order Comment: Specimen Type : BLOOD SPECIMENOrdering Facility: [facility] Address: [address] [place] [address] Performed By: #### 92807-8 # ###[facility] LABORATORYCLIA [id number] [facility], [address] STATES [facility] MCHC (RBC) [Mass/Vol] 29.0 g/dL Low 30.5-36.0 [facility] Comment on above: Order Comment: Specimen Type : BLOOD SPECIMENOrdering Facility: [facility] Address: [address] [place] [address] Performed By: #### 29137-2 # ###[facility] LABORATORYCLIA [id number] [facility], [address] [place] MCV (RBC) [Entitic vol] 92.0 fL Normal 80.0-100.0 [facility] Comment on above: Order Comment: Specimen Type : BLOOD SPECIMENOrdering Facility: [facility] Address: [address] [place] [address] Performed By: #### 59785-4 # ###[facility] LABORATORYCLIA [id number] [address] Nucleated RBC (Bld) [#/Vol] 10*3/uL Normal <0.01 [facility] Comment on above: Order Comment: Specimen Type : BLOOD SPECIMENOrdering Facility: [facility] Address: [address] [place] [address] Performed By: #### 28911-2 # ###[facility] LABORATORYCLIA [id number] [address] STATES [facility] Platelet mean volume (Bld) 9.8 fL Normal 9.0-12.7 [facility] [Entitic vol] Comment on above: Order Comment: Specimen Type : BLOOD SPECIMENOrdering Facility: [facility] Address: [address] [place] [address] Performed By: #### 64537-4 # ###[facility] LABORATORYCLIA [id number] [facility], [address] [place] Platelets (Bld) [#/Vol] 282 10*3/uL Normal 150-400 [facility] Comment on above: Order Comment: Specimen Type : BLOOD SPECIMENOrdering Facility: [facility] Address: [address] [address] Performed By: #### 59090-1 # ###[facility] LABORATORYCLIA [id number] [place] [address] [place] RBC (Bld) [#/Vol] 3.49 10*6/uL Low 3.90-5.20 [facility] Comment on above: Order Comment: Specimen Type : BLOOD SPECIMENOrdering Facility: [facility] Address: [address] [address] Performed By: #### 98617-1 # ###[facility] LABORATORYCLIA [id number] [place] [address] [place] WBC (Bld) [#/Vol] 11.20 10*3/uL High 3.70-11.00 [facility] Comment on above: Order Comment: Specimen Type : BLOOD SPECIMENOrdering Facility: [facility] Address: [address] [address] Performed By: #### 40166-9 # ###[facility] LABORATORYCLIA [id number] [address] [place] Erythrocyte distribution width 16.4 % High 11.5-15.0 [facility] (RBC) [Ratio] Comment on above: Order Comment: Specimen Type : BLOOD SPECIMENOrdering Facility: [facility] Address: [address] [address] Performed By: #### 77602-9 # ###[facility] LABORATORYCLIA [id number] [address] Hematocrit (Bld) [Volume fraction] 33.4 % Low 36.0-4 6.0 [facility] Comment on above: Order Comment: Specimen Type : BLOOD SPECIMENOrdering Facility: [facility] Address: [address] [address] Performed By: #### 41805-8 # ###[facility] LABORATORYCLIA [id number] [facility], [address] [place] Hemoglobin (Bld) [Mass/Vol] 9.3 g/dL Low 11.5-15.5 [facility] Comment on above: Order Comment: Specimen Type : BLOOD SPECIMENOrdering Facility: [facility] Address: [address] [place] [address] Performed By: #### 20117-6 # ###[facility] LABORATORYCLIA [id number] [address] OF [facility] MCH (RBC) [Entitic mass] 25.9 pg Low 26.0-34.0 [facility] Comment on above: Order Comment: Specimen Type : BLOOD SPECIMENOrdering Facility: [facility] Address: [address] [place] [address] Performed By: #### 75233-6 # ###[facility] LABORATORYCLIA [id number] [address] OF [facility] MCHC (RBC) [Mass/Vol] 27.8 g/dL Low 30.5-36.0 [facility] Comment on above: Order Comment: Specimen Type : BLOOD SPECIMENOrdering Facility: [facility] Address: [address] [place] [address] Performed By: #### 16753-9 # ###[facility] LABORATORYCLIA [id number] [address] OF [place] MCV (RBC) [Entitic vol] 93.0 fL Normal 80.0-100.0 [facility] Comment on above: Order Comment: Specimen Type : BLOOD SPECIMENOrdering Facility: [facility] Address: [address] [place] [address] Performed By: #### 08078-5 # ###[facility] LABORATORYCLIA [id number] [address] OF [facility] Nucleated RBC (Bld) [#/Vol] 10*3/uL Normal <0.01 [facility] Comment on above: Order Comment: Specimen Type : BLOOD SPECIMENOrdering Facility: [facility] Address: [address] [address] Performed By: #### 64729-8 # ###[facility]ORATORYCLIA [id number] [place] [address] [facility] [place] Platelet mean volume (Bld) 9.8 fL Normal 9.0-12.7 [facility] [facility] [Entitic vol] Comment on above: Order Comment: Specimen Type : BLOOD SPECIMENOrdering Facility: [facility] Address: [address] Performed By: #### 60044-0 # ###[facility]ORATORYCLIA [id number] [place] [address] [place] Platelets (Bld) [#/Vol] 292 10*3/uL Normal 150-400 [facility] Comment on above: Order Comment: Specimen Type : BLOOD SPECIMENOrdering Facility: [facility] Address: [address] Performed By: #### 97897-3 # ###[facility]ORATORYCLIA [id number] [place] [address] [place] RBC (Bld) [#/Vol] 3.59 10*6/uL Low 3.90-5.20 [facility] Comment on above: Order Comment: Specimen Type : BLOOD SPECIMENOrdering Facility: [facility] Address: [address] Performed By: #### 07727-0 # ###[facility]ORATORYCLIA [id number] [facility] [place] [address] [place] [address] [place] WBC (Bld) [#/Vol] 11.49 10*3/uL High 3.70-11.00 [facility] Comment on above: Order Comment: Specimen Type : BLOOD SPECIMENOrdering Facility: [facility] Address: [address] [place] [address] Performed By: #### 72478-3 # ###[facility] LABORATORYCLIA [id number] [place] [address] [place] CNPN on 02-19-2023 CNPN Normal [facility] CONSULT on 02-19-2023 CONSULT Normal [facility] CONSULT PROG on 02-19-2023 CONSULT PROG Normal [facility] Comprehensive metabolic 2000 panel on 0 02-19-2023 Albumin [Mass/Vol] 3.4 g/dL Low 3.9 - 4.9 g/dL [facility] ALP [Catalytic 64 U/L 34 - 123 U/L [employer] [facility] rebecca activity/Vol] ALT [Catalytic 12 U/L 7 - 38 U/L [employer] [facility] rebecca activity/Vol] Anion gap [Moles/Vol] 7 mmol/L Low 9 - 18 mmol/L [facility] AST [Catalytic 12 U/L Low 13 - 35 U/L [employer] Cli rebecca activity/Vol] Bilirubin [Mass/Vol] 0.2 mg/dL 0.2 - 1.3 mg/dL [facility] Calcium [Mass/Vol] 8.8 mg/dL 8.5 - 10.2 mg/dL [facility] Chloride [Moles/Vol] 100 mmol/L 97 - 105 mmol/L [facility] CO2 [Moles/Vol] 29 mmol/L 22 - 30 mmol/L [facility] Creatinine [Mass/Vol] 0.76 mg/dL 0.58 - 0.96 mg/dL C [facility] Estimated Glomerular 99 mL/min/1.73m >=60 mL/min/1.73m [facility] Filtration Rate Glucose [Mass/Vol] 153 mg/dL High 74 - 99 mg/dL [facility] Potassium [Moles/Vol] 5.0 mmol/L 3.7 - 5.1 mmol/L Cl [facility] Protein [Mass/Vol] 6.7 g/dL 6.3 - 8.0 g/dL [facility] Sodium [Moles/Vol] 136 mmol/L 136 - 144 mmol/L [facility] Urea nitrogen [Mass/Vol] 16 mg/dL 7 - 21 mg/dL [facility] ED NOTE on 02-19-2023 ED NOTE HNO ID: [id number] Normal [facility] Author: Anita Jason RN Service: ? Author Type: Registered Nurse Type: ED Notes Filed: 02/19/2023 12:25 AM Note Text: Bed: 12-ED Expected date: Expected time: Means of arrival: Comments: [place] transfer ED PROV NOTE on 02-19-2023 ED PROV NOTE Normal [facility] ED PROV NOTE Normal [facility] HISTORY PHYSICAL on 02-19-2023 HISTORY PHYSICAL Normal [facility] LIPID PANEL, NONFASTING on 02-19-2023 Cholesterol [Mass/Vol] 148 mg/dL <200 mg/dL [facility] HDL Cholesterol, Nonfasting 37 mg/dL Low >39 mg/dL [facility] LDL Cholesterol, Nonfasting 87 mg/dL <100 mg/dL [facility] LDL/HDL Ratio, Nonfasting 2.35 mg/dL <2.54 mg/dL [facility] Non HDL Cholesterol, Nonfasting 111 mg/dL <130 mg/d L [facility] Total Chol/HDL Ratio, Nonfasting 4.00 mg/dL <5.10 mg /dL [facility] Triglycerides, Nonfasting 122 mg/dL <150 mg/dL [facility] VLDL Cholesterol, Nonfasting 24 mg/dL <30 mg/dL [facility] NURSING PROG on 02-19-2023 NURSING PROG Normal [facility] PT panel Coag (PPP) on 02-19-2023 INR Coag (PPP) [Relative time] 1.1 {INR} Normal 0.9-1.3 [facility] Comment on above: Order Comment: Specimen Type : BLOOD SPECIMENOrdering Facility: [facility] Address: [address] [place] [id number] Result Comment: Vitamin K An tagonist (VKA) [...] al. Chest 2012, 141:7S-47SCristel RA, et al. [facility] 2017, 70: 25 2-289 Performed By: #### 65160-3, 63947-3 ####[facility] INSTITUTECLIA [id number] [address] STATES OF [facility] PT Coag (PPP) [Time] 11.4 s Normal 9.7-13.0 [facility] Comment on above: Order Comment: Specimen Type : BLOOD SPECIMENOrdering Facility: [facility] Address: [address] [place] [address] Performed By: #### 30816-6, 72246-9 ####[facility] INSTITUTECLIA [id number] [address] URINALYSIS, REFLEX MICROSCOPIC on 02-19 Bacteria LM.HPF (Urine sed) Few Abnormal None Seen [facility] [#/Area] Comment on above: Order Comment: Specimen Type : URINE SPECIMENOrdering Facility: [facility] Address: [address] [place] [address] Performed By: #### [id number] # ###[facility] INSTITUTECLIA [id number] [address] Bilirubin Ql (U) Negative Normal Negative [facility] Comment on above: Order Comment: Specimen Type : URINE SPECIMENOrdering Facility: [facility] Address: [address] [place] [address] Performed By: #### [id number] # ###[facility] INSTITUTECLIA [id number] [address] Clarity (Unsp spec) Clear Normal Clear [facility] Comment on above: Order Comment: Specimen Type : URINE SPECIMENOrdering Facility: [facility] Address: [address] [address] Performed By: #### [id number] # ###[facility]ORATORYCLIA [id number] [place] [address] [place] Color (U) Light Yellow Normal yellow [facility] Comment on above: Order Comment: Specimen Type : URINE SPECIMENOrdering Facility: [facility] Address: [address] [place] [address] Performed By: #### [id number] # ###[facility]ORATORYCLIA [id number] [facility] [place], [place] [id number] [place] [address] [place] Glucose Test strip (U) 4+ Abnormal Trace, Negative [facility] [Mass/Vol] Center Comment on above: Order Comment: Specimen Type : URINE SPECIMENOrdering Facility: [facility] Address: [address] [place] [address] Performed By: #### [id number] # ###[facility]ORATORYCLIA [id number] [facility] [place], [place] [address] [place] Hemoglobin Ql (U) 2+ Abnormal Negative, Trace [facility] Comment on above: Order Comment: Specimen Type : URINE SPECIMENOrdering Facility: [facility] Address: [address] [place] [address] Performed By: #### [id number] # ###[facility]ORATORYCLIA [id number] [facility] [place] [address] [place] [address] [place] Ketones Ql (U) Negative Normal Negative, Trace [facility] Comment on above: Order Comment: Specimen Type : URINE SPECIMENOrdering Facility: [facility] Address: [address] [place] [address] Performed By: #### [id number] # ###[facility]ORATORYCLIA [id number] [facility] [address] [place] Leukocyte esterase Test 500 Robert/uL Abnormal Negative, 25 Robert/ uL [facility] strip Ql (U) Center Comment on above: Order Comment: Specimen Type : URINE SPECIMENOrdering Facility: [facility] Address: [address] [address] Performed By: #### [id number] # ###[facility] LABORATORYCLIA [id number] [place] [id number] [place] Nitrite Ql (U) Negative Normal Negative [facility] Comment on above: Order Comment: Specimen Type : URINE SPECIMENOrdering Facility: [facility] Address: [address] [address] Performed By: #### [id number] # ###[facility] LABORATORYCLIA [id number] [place] [id number] [place] pH (U) 5.5 [pH] Normal 5.0-8.0 [facility] Comment on above: Order Comment: Specimen Type : URINE SPECIMENOrdering Facility: [facility] Address: [address] [place] [address] Performed By: #### [id number] # ###[facility] INSTITUTECLIA [id number] [address] Protein (U) [Mass/Vol] 1+ Abnormal Trace, Negative [facility] Comment on above: Order Comment: Specimen Type : URINE SPECIMENOrdering Facility: [facility] Address: [address] [place] [address] Performed By: #### [id number] # ###[facility] LABORATORYCLIA [id number] [place] [id number] [facility] [place] RBC LM.HPF (Urine sed) [#/Area] /[HPF] Abnormal 0-3 /HPF [facility] Comment on above: Order Comment: Specimen Type : URINE SPECIMENOrdering Facility: [facility] Address: [address] [place] [address] Performed By: #### [id number] # ###[facility] LABORATORYCLIA [id number] [address] Specific gravity (U) [Rel 1.027 Normal 1.005-1.030 [facility] density] Comment on above: Order Comment: Specimen Type : URINE SPECIMENOrdering Facility: [facility] Address: [address] [address] Performed By: #### [id number] # ###[facility] LABORATORYCLIA [id number] [address] Urobilinogen Ql (U) Normal Normal Negative [facility] Comment on above: Order Comment: Specimen Type : URINE SPECIMENOrdering Facility: [facility] Address: [address] [place] [address] Performed By: #### [id number] # ###[facility] LABORATORYCLIA [id number] [facility], [address] WBC LM.HPF (Urine sed) [#/Area] /[HPF] Abnormal 0-5 /HPF [facility] Comment on above: Order Comment: Specimen Type : URINE SPECIMENOrdering Facility: [facility] Address: [address] [place] [address] Performed By: #### [id number] # ###[facility] LABORATORYCLIA [id number] [address] Yeast.budding LM.HPF (Urine sed) Few Abnormal None See n [facility] [#/Area] Comment on above: Order Comment: Specimen Type : URINE SPECIMENOrdering Facility: [facility] Address: [address] [place] [address] Performed By: #### [id number] # ###[facility] LABORATORYCLIA [id number] [address] OF [place] aPTT PPP on 02-19-2023 aPTT Coag (PPP) [Time] 37.2 s High 28.5-34.0 [facility] Comment on above: Order Comment: Specimen Type : BLOOD SPECIMENOrdering Facility: [facility] Address: [address] [place] [address] Performed By: #### 21548-2 # ###[facility] LABORATORYCLIA [id number] [facility], [address] aPTT Coag (PPP) [Time] 33.7 s High 23.0-32.4 [facility] Comment on above: Order Comment: Specimen Type : BLOOD SPECIMENOrdering Facility: [facility] Address: [address] [address] Performed By: #### 01221-0 # ###[facility] LABORATORYCLIA [id number] [address] [place] aPTT Coag (PPP) [Time] 28.4 s Normal 23.0-32.4 [facility] Comment on above: Order Comment: Specimen Type : BLOOD SPECIMENOrdering Facility: [facility] Address: [address] [address] Performed By: #### 87835-4, 93323-7 ####[facility] LABORATORYCLIA [id number] [address] [place] Bacteria Wnd Cult on 02-18-2023 Bacteria identified Cx Nom (Wound) Abnormal [facility] Comment on above: Performed By: #### 6462-6 ## ##[facility] LABCLIA [id number] [address] [place] CBC W Auto Differential panel (Bld) on 02-18-2023 Basophils (Bld) [#/Vol] 0.10 10*3/uL <0.11 k/uL [facility] Basophils/100 WBC (Bld) 0.8 % [facility] Differential cell count Auto [facility] method Nom (Bld) Eosinophils (Bld) [#/Vol] 0.18 10*3/uL <0.46 k/uL [facility] Eosinophils/100 WBC (Bld) 1.5 % [facility] Erythrocyte distribution 16.3 % High 11.5 - 15.0 % [facility] width (RBC) [Ratio] Hematocrit (Bld) [Volume 32.7 % Low 36.0 - 46.0 % [facility] fraction] Hemoglobin (Bld) 9.4 g/dL Low 11.5 - 15.5 g/dL [facility] [Mass/Vol] Immature granulocytes 0.11 10*3/uL High <0.10 k/uL [facility] (Bld) [#/Vol] Immature granulocytes/100 0.9 % [facility] WBC (Bld) Lymphocytes (Bld) [#/Vol] 2.20 10*3/uL 1.00 - 4.00 k/u L [facility] Lymphocytes/100 WBC (Bld) 18.5 % [facility] MCH (RBC) [Entitic mass] 26.5 pg 26.0 - 34.0 pg [facility] MCHC (RBC) [Mass/Vol] 28.7 g/dL Low 30.5 - 36.0 g/dL [facility] MCV (RBC) [Entitic vol] 92.1 fL 80.0 - 100.0 fL [facility] Monocytes (Bld) [#/Vol] 0.52 10*3/uL <0.87 k/uL [facility] Monocytes/100 WBC (Bld) 4.4 % [facility] Neutrophils (Bld) [#/Vol] 8.78 10*3/uL High 1.45 - 7.50 k/u L [facility] Neutrophils/100 WBC (Bld) 73.9 % [facility] Nucleated RBC (Bld) <0.01 k/uL [facility] [#/Vol] Nucleated RBC/100 WBC 0.0 /100 WBC [facility] (Bld) [Ratio] Platelet mean volume 10.7 fL 9.0 - 12.7 fL [facility] (Bld) [Entitic vol] Platelets (Bld) [#/Vol] 302 10*3/uL 150 - 400 k/uL [facility] RBC (Bld) [#/Vol] 3.55 10*6/uL Low 3.90 - 5.20 m/uL [facility] WBC (Bld) [#/Vol] 11.89 10*3/uL High 3.70 - 11.00 k/uL [facility] Basophils (Bld) [#/Vol] 0.10 10*3/uL Normal <0.11 [facility] Comment on above: Order Comment: Specimen Type : BLOOD SPECIMENOrdering Facility: [facility] Address: [address] [place] [address] [place] [address] Performed By: #### 64511-5 # ###[facility] LABCLIA [id number] [place] [address] [place] Basophils/100 WBC (Bld) 0.8 % Normal [facility] Comment on above: Order Comment: Specimen Type : BLOOD SPECIMENOrdering Facility: [facility] Address: [address] [place] [address] Performed By: #### 90870-6 # ###[facility] LABCLIA [id number] [place] [address] [place] Differential cell count method Nom (Bld) Auto Normal [facility] Comment on above: Order Comment: Specimen Type : BLOOD SPECIMENOrdering Facility: [facility] Address: [address] [place] [address] Performed By: #### 18292-4 # ###[facility] LABCLIA [id number] [place] [address] [place] Eosinophils (Bld) [#/Vol] 0.18 10*3/uL Normal <0.46 [facility] Comment on above: Order Comment: Specimen Type : BLOOD SPECIMENOrdering Facility: [facility] Address: [address] [place] [address] Performed By: #### 13730-0 # ###[facility] LABIA [id number] [place] [address] [place] Eosinophils/100 WBC (Bld) 1.5 % Normal [facility] Comment on above: Order Comment: Specimen Type : BLOOD SPECIMENOrdering Facility: [facility] Address: [address] [place] [address] Performed By: #### 34295-0 # ###[facility] LABIA [id number] [place] [address] [place] Erythrocyte distribution width (RBC) 16.3 % High 11.5 -15.0 [facility] [Ratio] Comment on above: Order Comment: Specimen Type : BLOOD SPECIMENOrdering Facility: [facility] Address: [address] Performed By: #### 74914-7 # ###[facility] LABIA [id number] [place] [address] [place] Hematocrit (Bld) [Volume fraction] 32.7 % Low 36.0-4 6.0 [facility] Comment on above: Order Comment: Specimen Type : BLOOD SPECIMENOrdering Facility: [facility] Address: [address] Performed By: #### 72924-9 # ###[facility] LABIA [id number] [place] [address] [place] Hemoglobin (Bld) [Mass/Vol] 9.4 g/dL Low 11.5-15.5 [facility] Comment on above: Order Comment: Specimen Type : BLOOD SPECIMENOrdering Facility: [facility] Address: [address] [place], [place] [address] Performed By: #### 28959-6 # ###[facility] LABIA [id number] [place] [address] [place] Immature granulocytes (Bld) 0.11 10*3/uL High <0.10 [facility] [#/Vol] Comment on above: Order Comment: Specimen Type : BLOOD SPECIMENOrdering Facility: [facility] Address: [address] [place], [place] [address] Performed By: #### 81806-3 # ###[facility] LABCLIA [id number] [place] [address] [place] Immature granulocytes/100 WBC (Bld) 0.9 % Normal [facility] Comment on above: Order Comment: Specimen Type : BLOOD SPECIMENOrdering Facility: [facility] Address: [address] [place], [place] [address] Performed By: #### 66444-8 # ###[facility] LABCLIA [id number] [place] [address] [place] Lymphocytes (Bld) [#/Vol] 2.20 10*3/uL Normal 1.00-4.00 [facility] Comment on above: Order Comment: Specimen Type : BLOOD SPECIMENOrdering Facility: [facility] Address: [address] [place] [address] Performed By: #### 93349-7 # ###[facility] LABCLIA [id number] [place] [address] [place] Lymphocytes/100 WBC (Bld) 18.5 % Normal [facility] Comment on above: Order Comment: Specimen Type : BLOOD SPECIMENOrdering Facility: [facility] Address: [address] [place] [address] Performed By: #### 65119-7 # ###[facility] LABCLIA [id number] [place] [address] [place] MCH (RBC) [Entitic mass] 26.5 pg Normal 26.0-34.0 [facility] Comment on above: Order Comment: Specimen Type : BLOOD SPECIMENOrdering Facility: [facility] Address: [address] [place] [address] Performed By: #### 77319-6 # ###[facility] LABCLIA [id number] [place] [address] [place] MCHC (RBC) [Mass/Vol] 28.7 g/dL Low 30.5-36.0 [facility] Comment on above: Order Comment: Specimen Type : BLOOD SPECIMENOrdering Facility: [facility] Address: [address] [place], [place] [address] Performed By: #### 87398-7 # ###[facility] LABCLIA [id number] [place] [address] [place] MCV (RBC) [Entitic vol] 92.1 fL Normal 80.0-100.0 [facility] Comment on above: Order Comment: Specimen Type : BLOOD SPECIMENOrdering Facility: [facility] Address: [address] Performed By: #### 56149-9 # ###[facility] LABCLIA [id number] [place] [address] [place] Monocytes (Bld) [#/Vol] 0.52 10*3/uL Normal <0.87 [facility] Comment on above: Order Comment: Specimen Type : BLOOD SPECIMENOrdering Facility: [facility] Address: [address] Performed By: #### 95115-3 # ###[facility] LABCLIA [id number] [place] [address] [place] Monocytes/100 WBC (Bld) 4.4 % Normal [facility] Comment on above: Order Comment: Specimen Type : BLOOD SPECIMENOrdering Facility: [facility] Address: [address] Performed By: #### 22461-2 # ###[facility] LABCLIA [id number] [place] [address] [place] Neutrophils (Bld) [#/Vol] 8.78 10*3/uL High 1.45-7.50 [facility] Comment on above: Order Comment: Specimen Type : BLOOD SPECIMENOrdering Facility: [facility] Address: [address] [place] [address] Performed By: #### 52000-5 # ###[facility] LABCLIA [id number] [place] [address] [place] Neutrophils/100 WBC (Bld) 73.9 % Normal [facility] Comment on above: Order Comment: Specimen Type : BLOOD SPECIMENOrdering Facility: [facility] Address: [address] Performed By: #### 55069-1 # ###[facility] LABCLIA [id number] [place] [address] [place] Nucleated RBC (Bld) [#/Vol] 10*3/uL Normal <0.01 [facility] Comment on above: Order Comment: Specimen Type : BLOOD SPECIMENOrdering Facility: [facility] Address: [address] [place] [address] Performed By: #### 34988-2 # ###[facility] LABCLIA [id number] [place] [address] [place] Nucleated RBC/100 WBC (Bld) [Ratio] 0.0 /100 WBC Normal [facility] Comment on above: Order Comment: Specimen Type : BLOOD SPECIMENOrdering Facility: [facility] Address: [address] [place] [address] Performed By: #### 27806-0 # ###[facility] LABCLIA [id number] [place] [address] [place] Platelet mean volume (Bld) 10.7 fL Normal 9.0-12.7 C [facility] [Entitic vol] Comment on above: Order Comment: Specimen Type : BLOOD SPECIMENOrdering Facility: [facility] Address: [address] [place], [place] [address] Performed By: #### 60471-9 # ###[facility] LABCLIA [id number] [place] [address] [place] Platelets (Bld) [#/Vol] 302 10*3/uL Normal 150-400 [facility] Comment on above: Order Comment: Specimen Type : BLOOD SPECIMENOrdering Facility: [facility] Address: [address] [place], [place] [address] Performed By: #### 54822-2 # ###[facility] LABCLIA [id number] [place] [address] [place] RBC (Bld) [#/Vol] 3.55 10*6/uL Low 3.90-5.20 [facility] Comment on above: Order Comment: Specimen Type : BLOOD SPECIMENOrdering Facility: [facility] Address: [address] Performed By: #### 60075-1 # ###[facility] LABCLIA [id number] [place] [address] [place] WBC (Bld) [#/Vol] 11.89 10*3/uL High 3.70-11.00 [facility] Comment on above: Order Comment: Specimen Type : BLOOD SPECIMENOrdering Facility: [facility] Address: [address] Performed By: #### 02572-5 # ###[facility] LABIA [id number] [place] [address] [place] CNOV on 02-18-2023 CNOV Normal [employer] [facility] metabolic 2000 panel on 02-18-2023 Albumin [Mass/Vol] 3.4 g/dL Low 3.9-4.9 [facility] Comment on above: Order Comment: Specimen Type : BLOOD SPECIMENOrdering Facility: [facility] Address: [address] Performed By: #### LIPNF, 323-8 ####[facility] LABCLIA [id number] [place] [address] [place] ALP [Catalytic activity/Vol] 64 U/L Normal 34-123 [facility] Comment on above: Order Comment: Specimen Type : BLOOD SPECIMENOrdering Facility: [facility] Address: [address] Performed By: #### LIPNF, 323-8 ####[facility] LABCLIA [id number] [place] [address] [place] ALT [Catalytic activity/Vol] 12 U/L Normal 7-38 [facility] Comment on above: Order Comment: Specimen Type : BLOOD SPECIMENOrdering Facility: [facility] Address: [address] [place], [place] [address] Performed By: #### LIPANN-MARIE, 8 ####[facility] LABCLIA [id number] [place] [address] [place] Anion gap [Moles/Vol] 7 mmol/L Low 9-18 [facility] Comment on above: Order Comment: Specimen Type : BLOOD SPECIMENOrdering Facility: [facility] Address: [address] [place], [place] Performed By: #### LIPANN-MARIE, 8 ####[facility] LABCLIA [id number] [place] [address] [place] AST [Catalytic activity/Vol] 12 U/L Low 13-35 [facility] Comment on above: Order Comment: Specimen Type : BLOOD SPECIMENOrdering Facility: [facility] Address: [address] [place], [place] Performed By: #### LIAM, 8 ####[facility] LABCLIA [id number] [place] [address] [place] Bilirubin [Mass/Vol] 0.2 mg/dL Normal 0.2-1.3 [facility] Comment on above: Order Comment: Specimen Type : BLOOD SPECIMENOrdering Facility: [facility] Address: [address] [place], [place] Performed By: #### LIPANN-MARIE, 8 ####[facility] LABCLIA [id number] [place] [address] [place] Calcium [Mass/Vol] 8.8 mg/dL Normal 8.5-10.2 [facility] Comment on above: Order Comment: Specimen Type : BLOOD SPECIMENOrdering Facility: [facility] Address: [address] [place], [place] Performed By: #### LIPANN-MARIE, 8 ####[facility] LABCLIA [id number] [place] [address] [place] Chloride [Moles/Vol] 100 mmol/L Normal 97-105 [facility] Comment on above: Order Comment: Specimen Type : BLOOD SPECIMENOrdering Facility: [facility] Address: [address] [place] [address] Performed By: #### LIAM, 8 ####[facility] LABCLIA [id number] [place] [address] [place] CO2 [Moles/Vol] 29 mmol/L Normal 22-30 [facility] Comment on above: Order Comment: Specimen Type : BLOOD SPECIMENOrdering Facility: [facility] Address: [address] Performed By: #### LIAM, ####[facility] LABCLIA [id number] [address] [place] Creatinine [Mass/Vol] 0.76 mg/dL Normal 0.58-0.96 [facility] Comment on above: Order Comment: Specimen Type : BLOOD SPECIMENOrdering Facility: [facility] Address: [address] Performed By: #### LIAM, ####[facility] LABCLIA [id number] [address] [place] ESTIMATED GLOMERULAR 99 mL/min/1.73m??? Normal >=60 C [facility] FILTRATION RATE Comment on above: Order Comment: Specimen Type : BLOOD SPECIMENOrdering Facility: [facility] Address: [address] Result Comment: Estimated Gl omerular Filtration [...] actual GFR. Performed By: #### LIAM, 8 ####[facility] LABCLIA [id number] [place] [address] [place] Glucose [Mass/Vol] 153 mg/dL High 74-99 [facility] Comment on above: Order Comment: Specimen Type : BLOOD SPECIMENOrdering Facility: [facility] Address: [address] [place] [address] Result Comment: The Prydeinig Diabetes Association (ADA) provides guidance for cutoff [...] of Medical Care in Diabetes 2016, [facility] Diabetes Association. Diabetes Care. 2016.39(Suppl 1). Performed By: #### LIAM, 8 ####[facility] LABIA [id number] [place] [address] [place] Potassium [Moles/Vol] 5.0 mmol/L Normal 3.7-5.1 [facility] Comment on above: Order Comment: Specimen Type : BLOOD SPECIMENOrdering Facility: [facility] Address: [address] Performed By: #### LIAM, 8 ####[facility] LIMAIA [id number] [place] [address] [place] Protein [Mass/Vol] 6.7 g/dL Normal 6.3-8.0 [facility] Comment on above: Order Comment: Specimen Type : BLOOD SPECIMENOrdering Facility: [facility] Address: [address] Performed By: #### LIPNF, 323-8 ####[facility] LABCLIA [id number] [place] [address] [place] Sodium [Moles/Vol] 136 mmol/L Normal 136-144 [facility] Comment on above: Order Comment: Specimen Type : BLOOD SPECIMENOrdering Facility: [facility] Address: [address] Performed By: #### LIPANN-MARIE, 8 ####[facility] LABCLIA [id number] [place] [address] [place] Urea nitrogen [Mass/Vol] 16 mg/dL Normal 7-21 [facility] Comment on above: Order Comment: Specimen Type : BLOOD SPECIMENOrdering Facility: [facility] Address: [address] [place], [place] [address] Performed By: #### LIPANN-MARIE, 8 ####[facility] LABIA [id number] [place] [address] [place] HbA1c (Bld) on 02-18-2023 Average glucose Estimated 194 mg/dL [facility] from glycated hemoglobin (Bld) [Mass/Vol] HbA1c (Bld) [Mass fraction] 8.4 % High 4.3 - 5.6 % [facility] Average glucose Estimated 194 mg/dL Normal [facility] from glycated hemoglobin (Bld) [Mass/Vol] Comment on above: Order Comment: Specimen Type : BLOOD SPECIMENOrdering Facility: [facility] Address: [address] Result Comment: eAG: (Estima mitul average glucose) is a calculated value from HgbA1c and is rep resentative of the average blood glucose level in the last 2- 3 month period. Performed By: #### 96373-9 # ###[facility] LABCLIA [id number] [place] [address] [place] HbA1c (Bld) [Mass fraction] 8.4 % High 4.3-5.6 [facility] Comment on above: Order Comment: Specimen Type : BLOOD SPECIMENOrdering Facility: [facility] Address: [address] [place] [address] Result Comment: Prydeinig Richard betes Association guidelines indicate that patients with HgbA1c in the range 5.7-6.4% are at increased risk for development of diab etes, and intervention by lifestyle modification may be benefici al. HgbA1c greater or equal to 6.5% is considered diagnostic of richard betes. Performed By: #### 02307-2 # ###[facility] LABCLIA [id number] [place] [address] [place] LIPID PANEL, NONFASTING on 02-18-2023 Cholesterol [Mass/Vol] 148 mg/dL Normal <200 [facility] Comment on above: Order Comment: Specimen Type : BLOOD SPECIMENOrdering Facility: [facility] Address: [address] [place] [address] Result Comment: <200 mg/dL, Desirable 200-239 mg/dL, Borderline high>239 mg/dL, High Performed By: #### LIPNF, -8 ####[facility] LABCLIA [id number] [address] [place] HDL CHOLESTEROL, NF 37 mg/dL Low >39 [facility] Comment on above: Order Comment: Specimen Type : BLOOD SPECIMENOrdering Facility: [facility] Address: [address] [place] [address] Result Comment: 40-59 mg/dL, Acceptable>59 mg/dL, High: Negative risk factor for coronary hea rt disease<40 mg/dL, Low: Positive risk factor for coronary heart di sease Performed By: #### LIPNF, 323-8 ####[facility] LABCLIA [id number] [address] [place] LDL CHOLESTEROL, NF 87 mg/dL Normal <100 [facility] Comment on above: Order Comment: Specimen Type : BLOOD SPECIMENOrdering Facility: [facility] Address: [address] [place] [address] Result Comment: <100 mg/dL, Optimal 100-129 mg/dL, Near optimal/above optimal 130-15 9 mg/dL, Borderline high 160-189 mg/dL, High>189 mg/dL, Very highSec ondary prevention optimal LDL Cholesterol levels are recom mended to be < 70 mg/dL Performed By: #### LIPANN-MARIE, -8 ####[facility] LABCLIA [id number] [address] STATES OF [facility] LDL/HDL RATIO, NF 2.35 mg/dL Normal <2.54 [facility] Comment on above: Order Comment: Specimen Type : BLOOD SPECIMENOrdering Facility: [facility] Address: [address] Result Comment: Reference:1. National Cholesterol Education Program ATP III Guideline At-A-Glanc e Quick Desk Reference: National Heart, Lung, and Blood [place]. N [facility] Institutes of Health. 2001: NIH Publication No. 01-3305.2. A n International Atherosclerosis Society position paper: global recom mendations for the management of dyslipidemia: executive summ shaina, Atherosclerosis. 2014: 232(2):410-413. Performed By: #### LIAM, ####[facility] LABCLIA [id number] [address] [place] NON HDL CHOL, NF 111 mg/dL Normal <130 [place] [employer] Comment on above: Order Comment: Specimen Type : BLOOD SPECIMENOrdering Facility: [facility] Address: [place] [address] Result Comment: <130 mg/dL, Optimal 130-159 mg/dL, Near optimal/above optimal 160-18 9 mg/dL, Borderline high 190-219 mg/dL, High>219 mg/dL, Very highSec ondary prevention optimal non HDL Cholesterol levels are recom mended to be <100 mg/dL Performed By: #### LIPANN-MARIE, 323-8 ####[facility] LABCLIA [id number] [address], [place] [address] [place] T CHOL/HDL RATIO NF 4.00 mg/dL Normal <5.10 [facility] Comment on above: Order Comment: Specimen Type : BLOOD SPECIMENOrdering Facility: [facility] Address: [address] [place] [id number] Performed By: #### LIPNF, 323-8 ####[facility] LABCLIA [id number] [place] [address] [place] TRIGLYCERIDES, NF 122 mg/dL Normal <150 [facility] Comment on above: Order Comment: Specimen Type : BLOOD SPECIMENOrdering Facility: [facility] Address: [address] [place], [place] [address] Result Comment: <150 mg/dL, Normal 150-199 mg/dL, Borderline high 200-499 mg/dL, High>499 mg/d L, Very high Performed By: #### LIPNF, 323-8 ####[facility] LABCLIA [id number] [place] [address] [place] VLDL CHOLESTEROL, NF 24 mg/dL Normal <30 [facility] Comment on above: Order Comment: Specimen Type : BLOOD SPECIMENOrdering Facility: [facility] Address: [address] [place], [place] [address] Performed By: #### LIPNF, 323-8 ####[facility] LABCLIA [id number] [place] [address] [place] CNPN on 02-04-2023 CNPN Normal [facility] CNPTOUTREACH on 02-03-2023 CNPTOUTREACH Normal [facility] CNPN on 01-30-2023 CNPN Normal [facility] CNPTOUTREACH on 01-28-2023 CNPTOUTREACH Normal [facility] CNPN on 01-21-2023 CNPN Normal [facility] CNPN on 01-20-2023 CNPN Normal [facility] CNPTOUTREACH on 01-17-2023 CNPTOUTREACH Normal [employer] [facility] [employer] Basic metabolic 2000 panel on 3 Anion gap [Moles/Vol] 12 mmol/L Normal 9-18 [facility] Comment on above: Order Comment: Specimen Type : BLOOD SPECIMENOrdering Facility: [facility] Address: [address] [place] [address] Performed By: #### 49376-7 # ###[facility]ATORYCLIA [id number] [facility] [place] [place] [address] [place] Calcium [Mass/Vol] 8.6 mg/dL Normal 8.5-10.2 [facility] Comment on above: Order Comment: Specimen Type : BLOOD SPECIMENOrdering Facility: [facility] Address: [address] [place] [address] Performed By: #### 59998-0 # ###[facility] LABORATORYCLIA [id number] [facility] [place] [address] [place] Chloride [Moles/Vol] 98 mmol/L Normal 97-105 [facility] Comment on above: Order Comment: Specimen Type : BLOOD SPECIMENOrdering Facility: [facility] Address: [address] [place] [address] Performed By: #### 19469-4 # ###[facility]ORATORYCLIA [id number] [place] [address] [place] CO2 [Moles/Vol] 27 mmol/L Normal 22-30 [facility] Comment on above: Order Comment: Specimen Type : BLOOD SPECIMENOrdering Facility: [facility] Address: [address] [place] [address] Performed By: #### 13703-4 # ###[facility]ORATORYCLIA [id number] [facility] [place] Creatinine [Mass/Vol] 0.95 mg/dL Normal 0.58-0.96 [facility] Comment on above: Order Comment: Specimen Type : BLOOD SPECIMENOrdering Facility: [facility] Address: [address] [place] [address] Performed By: #### 39765-0 # ###[facility] [id number] OF [facility] ESTIMATED GLOMERULAR 75 mL/min/1.73m??? Normal >=60 A [facility] FIL[facility] RATE [facility] Comment on above: Order Comment: Specimen Type : BLOOD SPECIMENOrdering Facility: [facility] Address: [address] [place] [address] Result Comment: Estimated Gl omerular Filtration Rate [...] accurately reflect actual GFR. Performed By: #### 96992-1 # ###[facility] [id number] [address] OF [facility] Glucose [Mass/Vol] 212 mg/dL High 74-99 [facility] Comment on above: Order Comment: Specimen Type : BLOOD SPECIMENOrdering Facility: [facility] Address: [address] [place] [address] Result Comment: The Prydeinig Diabetes Association (ADA) provides guidance for cutoff [...] Diabetes Care. 2016.39(Suppl 1). Performed By: #### 29201-5 # ###[facility] [id number] [address] [place] Potassium [Moles/Vol] 3.8 mmol/L Normal 3.7-5.1 [facility] Comment on above: Order Comment: Specimen Type : BLOOD SPECIMENOrdering Facility: [facility] Address: [address] [place] [address] Performed By: #### 80087-7 # ###[facility] LABORATORYCLIA [id number] [place] [id number] [place] Sodium [Moles/Vol] 137 mmol/L Normal 136-144 [facility] Comment on above: Order Comment: Specimen Type : BLOOD SPECIMENOrdering Facility: [facility] Address: [address] [place] [address] Performed By: #### 13018-3 # ###[facility] LABORATORYCLIA [id number] [address] [place] Urea nitrogen [Mass/Vol] 12 mg/dL Normal 7-21 [facility] Comment on above: Order Comment: Specimen Type : BLOOD SPECIMENOrdering Facility: [facility] Address: [address] [place] [address] Performed By: #### 96513-2 # ###[facility] LABORATORYCLIA [id number] [place] [id number] [place] CASE MANAGEM on 01-16-2023 CASE MANAGEM Normal [facility] CBC panel Auto (Bld) on 01-16-2023 Erythrocyte distribution width 16.8 % High 11.5-15.0 [facility] (RBC) [Ratio] Comment on above: Order Comment: Specimen Type : BLOOD SPECIMENOrdering Facility: [facility] Address: [address] [place] [address] Performed By: #### 32071-7 # ###[facility] LABORATORYCLIA [id number] [address] [place] Hematocrit (Bld) [Volume fraction] 33.3 % Low 36.0-4 6.0 [facility] Comment on above: Order Comment: Specimen Type : BLOOD SPECIMENOrdering Facility: [facility] Address: [address] [place] [address] Performed By: #### 60871-7 # ###[facility] LABORATORYCLIA [id number] [facility] OF [facility] Hemoglobin (Bld) [Mass/Vol] 9.7 g/dL Low 11.5-15.5 [facility] Comment on above: Order Comment: Specimen Type : BLOOD SPECIMENOrdering Facility: [facility] Address: [address] [place] [address] Performed By: #### 88163-4 # ###[facility] LABORATORYCLIA [id number] [address] OF [facility] MCH (RBC) [Entitic mass] 27.6 pg Normal 26.0-34.0 [facility] Comment on above: Order Comment: Specimen Type : BLOOD SPECIMENOrdering Facility: [facility] Address: [address] [place] [address] Performed By: #### 52471-4 # ###[facility] LABORATORYCLIA [id number] [address] MCHC (RBC) [Mass/Vol] 29.1 g/dL Low 30.5-36.0 [facility] Comment on above: Order Comment: Specimen Type : BLOOD SPECIMENOrdering Facility: [facility] Address: [address] [place] [address] Performed By: #### 61652-7 # ###[facility] LABORATORYCLIA [id number] [facility], [address] STATES OF [facility] MCV (RBC) [Entitic vol] 94.9 fL Normal 80.0-100.0 [facility] Comment on above: Order Comment: Specimen Type : BLOOD SPECIMENOrdering Facility: [facility] Address: [address] [place] [address] Performed By: #### 19109-9 # ###[facility] LABORATORYCLIA [id number] [place] [address] [place] Nucleated RBC (Bld) [#/Vol] 0.02 10*3/uL High <0.01 [facility] Comment on above: Order Comment: Specimen Type : BLOOD SPECIMENOrdering Facility: [facility] Address: [address] [place] [address] Performed By: #### 64796-1 # ###[facility] LABORATORYCLIA [id number] [facility], [address] [place] Platelet mean volume (Bld) 9.4 fL Normal 9.0-12.7 [facility] [Entitic vol] Comment on above: Order Comment: Specimen Type : BLOOD SPECIMENOrdering Facility: [facility] Address: [address] [place] [address] Performed By: #### 09840-3 # ###[facility] LABORATORYCLIA [id number] [address] [place] Platelets (Bld) [#/Vol] 234 10*3/uL Normal 150-400 [facility] Comment on above: Order Comment: Specimen Type : BLOOD SPECIMENOrdering Facility: [facility] Address: [address] [place] [address] Performed By: #### 58508-0 # ###[facility] LABORATORYCLIA [id number] [facility], [address] [place] RBC (Bld) [#/Vol] 3.51 10*6/uL Low 3.90-5.20 [facility] Comment on above: Order Comment: Specimen Type : BLOOD SPECIMENOrdering Facility: [facility] Address: [address] [place] [address] Performed By: #### 37183-6 # ###[facility] LABORATORYCLIA [id number] [facility], [address] [place] WBC (Bld) [#/Vol] 11.70 10*3/uL High 3.70-11.00 [facility] Comment on above: Order Comment: Specimen Type : BLOOD SPECIMENOrdering Facility: [facility] Address: [address] [place], [place] [address] [address] Performed By: #### 43241-2 # ###[facility]ORATORYCLIA [id number] [place] [address] [place] CNDS on 01-16-2023 CNDS Normal [facility] NURSING PROG on 01-16-2023 NURSING PROG Normal [facility] Basic metabolic 2000 panel on 3 Anion gap [Moles/Vol] 10 mmol/L Normal 9-18 [facility] Comment on above: Order Comment: Specimen Type : BLOOD SPECIMENOrdering Facility: [facility] Address: [address] [place] [place] [address] Performed By: #### 02363-4 # ###[facility] LABORATORYCLIA [id number] [place] [address] [place] Calcium [Mass/Vol] 8.8 mg/dL Normal 8.5-10.2 [facility] Comment on above: Order Comment: Specimen Type : BLOOD SPECIMENOrdering Facility: [facility] Address: [address] [place] [place] [address] Performed By: #### 36169-1 # ###[facility] LABORATORYCLIA [id number] [place] [address] [place] Chloride [Moles/Vol] 99 mmol/L Normal 97-105 [facility] Comment on above: Order Comment: Specimen Type : BLOOD SPECIMENOrdering Facility: [facility] Address: [address] [place] [address] Performed By: #### 21739-4 # ###[facility] LABORATORYCLIA [id number] [place] [address] [place] CO2 [Moles/Vol] 29 mmol/L Normal 22-30 [facility] Comment on above: Order Comment: Specimen Type : BLOOD SPECIMENOrdering Facility: [facility] Address: [address] [place] [address] Performed By: #### 07095-5 # ###[facility] LABORATORYCLIA [id number] [place] [id number] [place] OF [facility] Creatinine [Mass/Vol] 0.85 mg/dL Normal 0.58-0.96 [facility] Comment on above: Order Comment: Specimen Type : BLOOD SPECIMENOrdering Facility: [facility] Address: [address] [place] [address] Performed By: #### 94438-4 # ###[facility] LABORATORYIA [id number] [place] [id number] [facility] ESTIMATED GLOMERULAR 86 mL/min/1.73m??? Normal >=60 A [facility] FILTRATION RATE Center Comment on above: Order Comment: Specimen Type : BLOOD SPECIMENOrdering Facility: [facility] Address: [address] [place] [address] Result Comment: Estimated Gl omerular Filtration Rate [...] accurately reflect actual GFR. Performed By: #### 89629-4 # ###[facility] LABORATORYIA [id number] [place] [id number] [place] Glucose [Mass/Vol] 184 mg/dL High 74-99 [facility] Comment on above: Order Comment: Specimen Type : BLOOD SPECIMENOrdering Facility: [facility] Address: [address] [place] [address] Result Comment: The Prydeinig Diabetes Association (ADA) provides guidance for cutoff [...] Standards of Medical Care in Diabetes 2016, [facility] Diabetes Association. Diabetes Care. 2016.39(Suppl 1). Performed By: #### 21129-7 # ###[facility] LABORATORYCLIA [id number] [address] [place] Potassium [Moles/Vol] 3.7 mmol/L Normal 3.7-5.1 [facility] Comment on above: Order Comment: Specimen Type : BLOOD SPECIMENOrdering Facility: [facility] Address: [address] [place] [address] Performed By: #### 79606-8 # ###[facility]PITALIA [id number] [address] STATES OF [facility] Sodium [Moles/Vol] 138 mmol/L Normal 136-144 [facility] Comment on above: Order Comment: Specimen Type : BLOOD SPECIMENOrdering Facility: [facility] Address: [address] [address] Performed By: #### 00436-9 # ###[facility]ITALIA [id number] [address] [place] Urea nitrogen [Mass/Vol] 8 mg/dL Normal 7-21 [facility] Comment on above: Order Comment: Specimen Type : BLOOD SPECIMENOrdering Facility: [facility] Address: [address] [address] Performed By: #### 95464-0 # ###[facility] INSTITUTECLIA [id number] [address] [place] C trach+GC DNA Ur Ql SURESH+probe on 01-15 C. trachomatis+N. GC AMPLIFICATION: Normal [facility] gonorrhoeae DNA SURESH+probe Ql Negative for Neisseria go norrhoeae by amplification [facility] (U) CHLAMYDIA AMPLIFICATION: Negative for Chlamydia trachomatis by amplification Comment on above: Performed By: #### 95560-0 # ###[facility] LABORATORYCLIA [id number] [address] OF [facility] CASE MGT INIT ASSES on 01-15-2023 CASE MGT INIT ASSES Normal [facility] CBC panel Auto (Bld) on 01-15-2023 Erythrocyte distribution width 16.7 % High 11.5-15.0 [facility] (RBC) [Ratio] Comment on above: Order Comment: Specimen Type : BLOOD SPECIMENOrdering Facility: [facility] Address: [address] [place] [address] Performed By: #### 81539-0 # ###[facility] LABORATORYCLIA [id number] [address] Hematocrit (Bld) [Volume fraction] 35.8 % Low 36.0-4 6.0 [facility] Comment on above: Order Comment: Specimen Type : BLOOD SPECIMENOrdering Facility: [facility] Address: [address] [place] [address] Performed By: #### 45998-5 # ###[facility] LABORATORYCLIA [id number] [address] OF [facility] Hemoglobin (Bld) [Mass/Vol] 10.3 g/dL Low 11.5-15.5 [facility] Comment on above: Order Comment: Specimen Type : BLOOD SPECIMENOrdering Facility: [facility] Address: [address] [place] [address] Performed By: #### 05632-8 # ###[facility] LABORATORYCLIA [id number] [address] OF [place] MCH (RBC) [Entitic mass] 27.4 pg Normal 26.0-34.0 [facility] Comment on above: Order Comment: Specimen Type : BLOOD SPECIMENOrdering Facility: [facility] Address: [address] [place] [address] Performed By: #### 35833-0 # ###[facility] LABORATORYCLIA [id number] [address] MCHC (RBC) [Mass/Vol] 28.8 g/dL Low 30.5-36.0 [facility] Comment on above: Order Comment: Specimen Type : BLOOD SPECIMENOrdering Facility: [facility] Address: [address] [address] Performed By: #### 32945-5 # ###[facility] LABORATORYCLIA [id number] [facility], [address] STATES OF [facility] MCV (RBC) [Entitic vol] 95.2 fL Normal 80.0-100.0 [facility] Comment on above: Order Comment: Specimen Type : BLOOD SPECIMENOrdering Facility: [facility] Address: [address] [address] Performed By: #### 94778-6 # ###[facility] LABORATORYCLIA [id number] [facility], [address] [place] Nucleated RBC (Bld) [#/Vol] 0.02 10*3/uL High <0.01 [facility] Comment on above: Order Comment: Specimen Type : BLOOD SPECIMENOrdering Facility: [facility] Address: [address] [address] Performed By: #### 62811-0 # ###[facility] LABORATORYCLIA [id number] [facility], [address] [place] Platelet mean volume (Bld) 9.4 fL Normal 9.0-12.7 [facility] [Entitic vol] Comment on above: Order Comment: Specimen Type : BLOOD SPECIMENOrdering Facility: [facility] Address: [address] [address] Performed By: #### 03160-5 # ###[facility] LABORATORYCLIA [id number] [facility], [address] Platelets (Bld) [#/Vol] 265 10*3/uL Normal 150-400 [facility] Comment on above: Order Comment: Specimen Type : BLOOD SPECIMENOrdering Facility: [facility] Address: [address] [address] Performed By: #### 01959-0 # ###[facility] LABORATORYCLIA [id number] [place] [address] [place] RBC (Bld) [#/Vol] 3.76 10*6/uL Low 3.90-5.20 [facility] Comment on above: Order Comment: Specimen Type : BLOOD SPECIMENOrdering Facility: [facility] Address: [address] [address] Performed By: #### 60951-4 # ###[facility]PITALIA [id number] [place] [address] [place] [facility] WBC (Bld) [#/Vol] 11.55 10*3/uL High 3.70-11.00 [facility] Comment on above: Order Comment: Specimen Type : BLOOD SPECIMENOrdering Facility: [facility] Address: [address] [place] [address] Performed By: #### 16721-1 # ###[facility]ITALIA [id number] [address] OF [facility] CNPN on 01-15-2023 CNPN Normal [facility] CONSULT PROG on 01-15-2023 CONSULT PROG Normal [facility] HCG ( test) Ql (U) on 01-15-20 23 Specific gravity (U) [Rel 1.014 Normal 1.006-1.029 [facility] density] Comment on above: Order Comment: Specimen Type : URINE SPECIMENOrdering Facility: [facility] Address: [address] [place] [address] Result Comment: If specific gravity is <1.005 then results may be falsely negative. Serum HCG is recommended. Performed By: #### 2106-3 ## ##[facility]OSPITALIA [id number] [address] HCG Preg Ur Ql on 01-15-2023 HCG ( test) Ql (U) Negative Normal Negative [facility] Comment on above: Order Comment: Specimen Type : URINE SPECIMENOrdering Facility: [facility] Address: [address] [id number] Result Comment: This test is intended to aid in the early detection of . Very dilute ur ine samples, as indicated by a low specific gravity, may not co ntain major account representative levels of hCG. This test detects [...] for . Performed By: #### 2106-3 ## ##[facility] INSTITUTECLIA [id number] [address] [place] T VAGINALIS AMPLIFICATION on 01-15-2023 T. vaginalis DNA Negative Normal Negative for Trichomonas [facility] SURESH+probe Ql (Unsp vaginalis by [facility] spec) Comment on above: Order Comment: Specimen Type : URINE SPECIMENOrdering Facility: [facility] Address: [address] [place], [place] [phone] Performed By: #### TRVAMP ## ##[facility] LABCLIA [id number] FOR[facility] N[facility]ED [facility] [place] [address] [place] ALLIED HEALTH on 01-14-2023 ALLIED HEALTH Normal [facility] ANES POSTPROC EVAL on 01-14-2023 ANES POSTPROC EVAL Normal [facility] ANES PRE-OP on 01-14-2023 ANES PRE-OP Normal [facility] BRIEF OP NOT on 01-14-2023 BRIEF OP NOT Normal [facility] Bacteria Wnd Cult on 01-14-2023 Bacteria identified Cx Nom (Wound) Abnormal [facility] Comment on above: Performed By: #### 6462-6 ## ##[facility] LABORATORYCLIA [id number] [place] [address] [place] Basic metabolic 2000 panel on 3 Anion gap [Moles/Vol] 10 mmol/L Normal 9-18 [facility] Comment on above: Order Comment: Specimen Type : BLOOD SPECIMENOrdering Facility: [facility] Address: [address] [facility] [address] [address] [place] [address] Performed By: #### 95222-8 # ###[facility]ORATORYCLIA [id number] [facility] [place] [address] [place] Calcium [Mass/Vol] 8.9 mg/dL Normal 8.5-10.2 [facility] Comment on above: Order Comment: Specimen Type : BLOOD SPECIMENOrdering Facility: [facility] Address: [address] [address] Performed By: #### 12178-0 # ###[facility] LABORATORYCLIA [id number] [facility] [place] [address] [place] Chloride [Moles/Vol] 98 mmol/L Normal 97-105 [facility] Comment on above: Order Comment: Specimen Type : BLOOD SPECIMENOrdering Facility: [facility] Address: [address] [address] Performed By: #### 06820-9 # ###[facility] LABORATORYCLIA [id number] [place] [address] [place] CO2 [Moles/Vol] 28 mmol/L Normal 22-30 [facility] Comment on above: Order Comment: Specimen Type : BLOOD SPECIMENOrdering Facility: [facility] Address: [address] [address] Performed By: #### 59443-4 # ###[facility] LABORATORYCLIA [id number] [place] [address] [place] Creatinine [Mass/Vol] 0.82 mg/dL Normal 0.58-0.96 [facility] Comment on above: Order Comment: Specimen Type : BLOOD SPECIMENOrdering Facility: [facility] Address: [address] [address] Performed By: #### 35650-6 # ###[facility] LABORATORYCLIA [id number] [place] [address] [place] ESTIMATED GLOMERULAR 90 mL/min/1.73m??? Normal >=60 A [facility] FILTR[facility] R[facility] Center Comment on above: Order Comment: Specimen Type : BLOOD SPECIMENOrdering Facility: [facility] Address: [address] [place] [address] Result Comment: Estimated Gl omerular Filtration Rate [...] accurately reflect actual GFR. Performed By: #### 59024-0 # ###[facility]PITALIA [id number] [place] [address] [place] Glucose [Mass/Vol] 178 mg/dL High 74-99 [facility] Comment on above: Order Comment: Specimen Type : BLOOD SPECIMENOrdering Facility: [facility] Address: [address] [place] [address] Result Comment: The [place] Diabetes Association (ADA) provides guidance for cutoff [...] Diabetes Care. 2016.39(Suppl 1). Performed By: #### 14283-9 # ###[facility] LABORATORYIA [id number] [place] [address] [place] Potassium [Moles/Vol] 3.9 mmol/L Normal 3.7-5.1 [facility] Comment on above: Order Comment: Specimen Type : BLOOD SPECIMENOrdering Facility: [facility] Address: [address] [address] Performed By: #### 84414-1 # ###[facility] LABORATORYCLIA [id number] [place] [address] [place] Sodium [Moles/Vol] 136 mmol/L Normal 136-144 [facility] Comment on above: Order Comment: Specimen Type : BLOOD SPECIMENOrdering Facility: [facility] Address: [address] [address] Performed By: #### 67481-7 # ###[facility] LABORATORYCLIA [id number] [place] [address] [place] Urea nitrogen [Mass/Vol] 11 mg/dL Normal 7-21 [facility] Comment on above: Order Comment: Specimen Type : BLOOD SPECIMENOrdering Facility: [facility] Address: [address] [address] Performed By: #### 04453-8 # ###[facility] LABORATORYCLIA [id number] [place] [address] [place] CBC panel Auto (Bld) on 01-14-2023 Erythrocyte distribution width 16.5 % High 11.5-15.0 [facility] (RBC) [Ratio] Comment on above: Order Comment: Specimen Type : BLOOD SPECIMENOrdering Facility: [facility] Address: [address] [address] Performed By: #### 77139-0 # ###[facility] LABORATORYCLIA [id number] [address] [place] Hematocrit (Bld) [Volume fraction] 33.1 % Low 36.0-4 6.0 [facility] Comment on above: Order Comment: Specimen Type : BLOOD SPECIMENOrdering Facility: [facility] Address: [address] [address] Performed By: #### 79726-0 # ###[facility] LABORATORYCLIA [id number] [facility], [address] [place] Hemoglobin (Bld) [Mass/Vol] 10.0 g/dL Low 11.5-15.5 [facility] Comment on above: Order Comment: Specimen Type : BLOOD SPECIMENOrdering Facility: [facility] Address: [address] [place] [address] Performed By: #### 96303-4 # ###[facility] LABORATORYCLIA [id number] [address] OF [facility] MCH (RBC) [Entitic mass] 28.0 pg Normal 26.0-34.0 [facility] Comment on above: Order Comment: Specimen Type : BLOOD SPECIMENOrdering Facility: [facility] Address: [address] [place] [address] Performed By: #### 01373-4 # ###[facility] LABORATORYCLIA [id number] [address] MCHC (RBC) [Mass/Vol] 30.2 g/dL Low 30.5-36.0 [facility] Comment on above: Order Comment: Specimen Type : BLOOD SPECIMENOrdering Facility: [facility] Address: [address] [place] [address] Performed By: #### 40937-5 # ###[facility] LABORATORYCLIA [id number] [address] OF [facility] MCV (RBC) [Entitic vol] 92.7 fL Normal 80.0-100.0 [facility] Comment on above: Order Comment: Specimen Type : BLOOD SPECIMENOrdering Facility: [facility] Address: [address] [place] [address] Performed By: #### 83896-3 # ###[facility] LABORATORYCLIA [id number] [facility], [address] OF [facility] Nucleated RBC (Bld) [#/Vol] 10*3/uL Normal <0.01 [facility] Comment on above: Order Comment: Specimen Type : BLOOD SPECIMENOrdering Facility: [facility] Address: [address] [address] Performed By: #### 38859-9 # ###[facility] LABORATORYCLIA [id number] [address] [place] Platelet mean volume (Bld) 9.5 fL Normal 9.0-12.7 [facility] [Entitic vol] Comment on above: Order Comment: Specimen Type : BLOOD SPECIMENOrdering Facility: [facility] Address: [address] [address] Performed By: #### 51261-9 # ###[facility] LABORATORYCLIA [id number] [facility] [address] [place] Platelets (Bld) [#/Vol] 284 10*3/uL Normal 150-400 [facility] Comment on above: Order Comment: Specimen Type : BLOOD SPECIMENOrdering Facility: [facility] Address: [address] [address] Performed By: #### 74698-6 # ###[facility] LABORATORYCLIA [id number] [facility], [place] [address] [place] RBC (Bld) [#/Vol] 3.57 10*6/uL Low 3.90-5.20 [facility] Comment on above: Order Comment: Specimen Type : BLOOD SPECIMENOrdering Facility: [facility] Address: [address] Performed By: #### 44150-0 # ###[facility] LABORATORYCLIA [id number] [facility], [address] [place] WBC (Bld) [#/Vol] 9.64 10*3/uL Normal 3.70-11.00 [facility] Comment on above: Order Comment: Specimen Type : BLOOD SPECIMENOrdering Facility: [facility] Address: [address] [address] Performed By: #### 12242-9 # ###[facility] LABORATORYCLIA [id number] [place] [address] [place] CNPN on 01-14-2023 CNPN Normal [facility] CNPTOUTREACH on 01-14-2023 CNPTOUTREACH Normal [facility] CT ABD/PEL W IVCON on 01-14-2023 CT ABD/PEL W IVCON Normal [facility] HISTORY PHYSICAL on 01-14-2023 HISTORY PHYSICAL Normal [facility] OPERATIVE NO on 01-14-2023 OPERATIVE NO Normal [facility] SARS-CoV-2 RNA Resp Ql SURESH+probe on SARS-CoV-2 (COVID-19) RNA COVID 19 RESULT: Normal [facility] SURESH+probe Ql (Resp) Not detected Center The method used is RT-PCR or an equivalent NAAT method . Reference Range(the expected result in uninfected jone viduals): Not detected Comment on above: Performed By: #### 89528-8 # ###[facility] LABORATORYCLIA [id number] [place] [address] [place] CNOV on 01-13-2023 CNOV Normal [facility] CNPN on 01-13-2023 CNPN Normal [facility] Basic metabolic 2000 panel on 3 Anion gap [Moles/Vol] 14 mmol/L Normal 9-18 [facility] Comment on above: Order Comment: Specimen Type : BLOOD SPECIMENOrdering Facility: [facility] Address: [address] [address] Performed By: #### 42023-9 # ###[facility] LABORATORYCLIA [id number] [place] [address] [place] Calcium [Mass/Vol] 9.4 mg/dL Normal 8.5-10.2 [facility] Comment on above: Order Comment: Specimen Type : BLOOD SPECIMENOrdering Facility: [facility] Address: [address] [address] Performed By: #### 49817-0 # ###[facility] LABORATORYCLIA [id number] [address] [place] Chloride [Moles/Vol] 101 mmol/L Normal 97-105 [facility] Comment on above: Order Comment: Specimen Type : BLOOD SPECIMENOrdering Facility: [facility] Address: [address] [place] [address] Performed By: #### 19946-8 # ###[facility] INSTITUTECLIA [id number] [address] [place] CO2 [Moles/Vol] 26 mmol/L Normal 22-30 [facility] Comment on above: Order Comment: Specimen Type : BLOOD SPECIMENOrdering Facility: [facility] Address: [address] [place] [address] Performed By: #### 11350-8 # ###[facility]PITALIA [id number] [address] [place] Creatinine [Mass/Vol] 0.76 mg/dL Normal 0.58-0.96 [facility] Comment on above: Order Comment: Specimen Type : BLOOD SPECIMENOrdering Facility: [facility] Address: [address] [place] [address] Performed By: #### 94133-7 # ###[facility]PITALIA [id number] [address] OF [place] ESTIMATED GLOMERULAR 99 mL/min/1.73m??? Normal >=60 A [facility] Center Comment on above: Order Comment: Specimen Type : BLOOD SPECIMENOrdering Facility: [facility] Address: [address] [place] [address] Result Comment: Estimated Gl omerular Filtration Rate [...] accurately reflect actual GFR. Performed By: #### 41248-3 # ###[facility] LABORATORYCLIA [id number] [place] [address] [place] Glucose [Mass/Vol] 221 mg/dL High 74-99 [facility] Comment on above: Order Comment: Specimen Type : BLOOD SPECIMENOrdering Facility: [facility] Address: [address] [address] Result Comment: The [place] Diabetes Association (ADA) provides guidance for cutoff [...] Standards of Medical Care in Diabetes 2016, [facility] Diabetes Association. Diabetes Care. 2016.39(Suppl 1). Performed By: #### 81207-3 # ###[facility] LABORATORYCLIA [id number] [place] [address] [place] Potassium [Moles/Vol] 4.7 mmol/L Normal 3.7-5.1 [facility] Comment on above: Order Comment: Specimen Type : BLOOD SPECIMENOrdering Facility: [facility] Address: [address] [address] Performed By: #### 10511-6 # ###[facility] LABORATORYCLIA [id number] [address] [place] [id number] [place] Sodium [Moles/Vol] 141 mmol/L Normal 136-144 [facility] Comment on above: Order Comment: Specimen Type : BLOOD SPECIMENOrdering Facility: [facility] Address: [address] [place] [address] Performed By: #### 95415-9 # ###[facility] LABORATORYCLIA [id number] [place] [address] [place] Urea nitrogen [Mass/Vol] 15 mg/dL Normal 7-21 [facility] Comment on above: Order Comment: Specimen Type : BLOOD SPECIMENOrdering Facility: [facility] Address: [address] [address] Performed By: #### 84146-6 # ###[facility]ORATORYCLIA [id number] [facility], [place] [address] [place] CBC W Auto Differential panel (Bld) on 01-12-2023 Basophils (Bld) [#/Vol] 0.09 10*3/uL Normal <0.11 [facility] Comment on above: Order Comment: Specimen Type : BLOOD SPECIMENOrdering Facility: [facility] Address: [address] [address] Performed By: #### 68829-9 # ###[facility]ORATORYCLIA [id number] [facility], [place] [address] [place] Basophils/100 WBC (Bld) 0.9 % Normal [facility] Comment on above: Order Comment: Specimen Type : BLOOD SPECIMENOrdering Facility: [facility] Address: [address] [address] Performed By: #### 13572-1 # ###[facility]ORATORYCLIA [id number] [facility], [address] [place] Differential cell count method Nom (Bld) Auto Normal [facility] Comment on above: Order Comment: Specimen Type : BLOOD SPECIMENOrdering Facility: [facility] Address: [address] [address] Performed By: #### 29497-8 # ###[facility]ORATORYCLIA [id number] [facility] E[facility], [place] [address] [place] Eosinophils (Bld) [#/Vol] 0.22 10*3/uL Normal <0.46 [facility] Comment on above: Order Comment: Specimen Type : BLOOD SPECIMENOrdering Facility: [facility] Address: [address] [address] Performed By: #### 44765-2 # ###[facility]ORATORYCLIA [id number] [facility], [address] [place] Eosinophils/100 WBC (Bld) 2.1 % Normal [facility] Comment on above: Order Comment: Specimen Type : BLOOD SPECIMENOrdering Facility: [facility] Address: [address] [place] [address] Performed By: #### 20502-3 # ###[facility]ORATORYCLIA [id number] [facility] [place] Erythrocyte distribution width 16.6 % High 11.5-15.0 [facility] (RBC) [Ratio] Comment on above: Order Comment: Specimen Type : BLOOD SPECIMENOrdering Facility: [facility] Address: [address] [place] [address] Performed By: #### 72860-0 # ###[facility] LABORATORYCLIA [id number] [address] [place] Hematocrit (Bld) [Volume 37.0 % Normal 36.0-46.0 [facility] Hospital fraction] Comment on above: Order Comment: Specimen Type : BLOOD SPECIMENOrdering Facility: [facility] Address: [address] [place] [address] Performed By: #### 96200-1 # ###[facility] LABORATORYCLIA [id number] [facility], [address] [place] Hemoglobin (Bld) [Mass/Vol] 10.9 g/dL Low 11.5-15.5 [facility] Comment on above: Order Comment: Specimen Type : BLOOD SPECIMENOrdering Facility: [facility] Address: [address] [place] [address] Performed By: #### 93025-3 # ###[facility] LABORATORYCLIA [id number] [address] Immature granulocytes (Bld) 0.12 10*3/uL High <0.10 [facility] [#/Vol] Comment on above: Order Comment: Specimen Type : BLOOD SPECIMENOrdering Facility: [facility] Address: [address] [address] Performed By: #### 52164-7 # ###[facility]ORATORYCLIA [id number] [place] [address] Immature granulocytes/100 WBC (Bld) 1.1 % Normal [facility] Comment on above: Order Comment: Specimen Type : BLOOD SPECIMENOrdering Facility: [facility] Address: [address] [address] Performed By: #### 90745-0 # ###[facility]ORATORYCLIA [id number] [facility], [address] [place] Lymphocytes (Bld) [#/Vol] 2.50 10*3/uL Normal 1.00-4.00 [facility] Comment on above: Order Comment: Specimen Type : BLOOD SPECIMENOrdering Facility: [facility] Address: [address] [address] Performed By: #### 02929-6 # ###[facility]ORATORYCLIA [id number] [address] Lymphocytes/100 WBC (Bld) 23.8 % Normal [facility] Comment on above: Order Comment: Specimen Type : BLOOD SPECIMENOrdering Facility: [facility] Address: [address] [address] Performed By: #### 46359-4 # ###[facility]ORATORYCLIA [id number] [facility] [address] [place] MCH (RBC) [Entitic mass] 28.0 pg Normal 26.0-34.0 [facility] Comment on above: Order Comment: Specimen Type : BLOOD SPECIMENOrdering Facility: [facility] Address: [address] [address] Performed By: #### 67984-2 # ###[facility]ORATORYCLIA [id number] [facility], [address] [place] MCHC (RBC) [Mass/Vol] 29.5 g/dL Low 30.5-36.0 [facility] Comment on above: Order Comment: Specimen Type : BLOOD SPECIMENOrdering Facility: [facility] Address: [address] [address] Performed By: #### 50266-3 # ###[facility]ORATORYCLIA [id number] [facility], [address] [place] MCV (RBC) [Entitic vol] 95.1 fL Normal 80.0-100.0 [facility] Comment on above: Order Comment: Specimen Type : BLOOD SPECIMENOrdering Facility: [facility] Address: [address] [address] Performed By: #### 73238-7 # ###[facility]ORATORYCLIA [id number] [facility], [address] [place] Monocytes (Bld) [#/Vol] 0.50 10*3/uL Normal <0.87 [facility] Comment on above: Order Comment: Specimen Type : BLOOD SPECIMENOrdering Facility: [facility] Address: [address] [address] Performed By: #### 97984-2 # ###[facility]ORATORYCLIA [id number] [facility], [address] Monocytes/100 WBC (Bld) 4.8 % Normal [facility] Comment on above: Order Comment: Specimen Type : BLOOD SPECIMENOrdering Facility: [facility] Address: [address] [address] Performed By: #### 99890-8 # ###[facility]ORATORYCLIA [id number] [facility], [address] [place] Neutrophils (Bld) [#/Vol] 7.07 10*3/uL Normal 1.45-7.50 [facility] Comment on above: Order Comment: Specimen Type : BLOOD SPECIMENOrdering Facility: [facility] Address: [address] [address] Performed By: #### 27132-0 # ###[facility]ORATORYCLIA [id number] [facility] [address] [place] Neutrophils/100 WBC (Bld) 67.3 % Normal [facility] Comment on above: Order Comment: Specimen Type : BLOOD SPECIMENOrdering Facility: [facility] Address: [address] [address] Performed By: #### 52760-3 # ###[facility] LABORATORYCLIA [id number] [address] [place] Nucleated RBC (Bld) [#/Vol] 0.02 10*3/uL High <0.01 [facility] Comment on above: Order Comment: Specimen Type : BLOOD SPECIMENOrdering Facility: [facility] Address: [address] [address] Performed By: #### 16495-6 # ###[facility] LABORATORYCLIA [id number] [address] [place] Nucleated RBC/100 WBC (Bld) 0.2 /100 WBC Normal [facility] [Ratio] Comment on above: Order Comment: Specimen Type : BLOOD SPECIMENOrdering Facility: [facility] Address: [address] [address] Performed By: #### 57222-6 # ###[facility] LABORATORYCLIA [id number] [address] Platelet mean volume (Bld) 9.5 fL Normal 9.0-12.7 A [facility] [Entitic vol] Comment on above: Order Comment: Specimen Type : BLOOD SPECIMENOrdering Facility: [facility] Address: [address] Performed By: #### 28873-7 # ###[facility] LABORATORYCLIA [id number] [address] Platelets (Bld) [#/Vol] 337 10*3/uL Normal 150-400 [facility] Comment on above: Order Comment: Specimen Type : BLOOD SPECIMENOrdering Facility: [facility] Address: [address] [address] Performed By: #### 30322-0 # ###[facility] LABORATORYCLIA [id number] [place] [address] [place] RBC (Bld) [#/Vol] 3.89 10*6/uL Low 3.90-5.20 [facility] Comment on above: Order Comment: Specimen Type : BLOOD SPECIMENOrdering Facility: [facility] Address: [address] [address] Performed By: #### 71264-5 # ###[facility] LABORATORYCLIA [id number] [place] [address] [place] WBC (Bld) [#/Vol] 10.50 10*3/uL Normal 3.70-11.00 [facility] Comment on above: Order Comment: Specimen Type : BLOOD SPECIMENOrdering Facility: [facility] Address: [address] [address] Performed By: #### 08142-0 # ###[facility] LABORATORYCLIA [id number] [address] [place] ED Triage Note on 01-12-2023 ED Triage Note Normal [facility] CNPN on 01-06-2023 CNPN Normal [facility] CNCO on 01-03-2023 CNCO Letter Text Normal [facility] CNPN on 01-02-2023 CNPN Normal [facility] CNPTOUTREACH on 01-02-2023 CNPTOUTREACH Normal [facility] Basic metabolic 2000 panel on 3 Anion gap [Moles/Vol] 12 mmol/L Normal 9-18 [facility] Comment on above: Order Comment: Specimen Type : BLOOD SPECIMENOrdering Facility: [facility] Address: [address] [address] Performed By: #### 40681-1 # ###[facility] LABORATORYCLIA [id number] [place] [address] [place] Calcium [Mass/Vol] 9.1 mg/dL Normal 8.5-10.2 [facility] Comment on above: Order Comment: Specimen Type : BLOOD SPECIMENOrdering Facility: [facility] Address: [address] [address] Performed By: #### 78951-7 # ###[facility]ORATORYCLIA [id number] [place] [address] [place] Chloride [Moles/Vol] 97 mmol/L Normal 97-105 [facility] Comment on above: Order Comment: Specimen Type : BLOOD SPECIMENOrdering Facility: [facility] Address: [address] [address] Performed By: #### 78079-8 # ###[facility]ORATORYCLIA [id number] [place] [address] [place] CO2 [Moles/Vol] 29 mmol/L Normal 22-30 [facility] Comment on above: Order Comment: Specimen Type : BLOOD SPECIMENOrdering Facility: [facility] Address: [address] [address] Performed By: #### 66703-6 # ###[facility]ORATORYCLIA [id number] [place] [address] [place] Creatinine [Mass/Vol] 0.90 mg/dL Normal 0.58-0.96 [facility] Comment on above: Order Comment: Specimen Type : BLOOD SPECIMENOrdering Facility: [facility] Address: [address] [place] [address] Performed By: #### 89522-0 # ###[facility]ORATORYCLIA [id number] [place] [address] [place] ESTIMATED GLOMERULAR 81 mL/min/1.73m??? Normal >=60 A [facility] Comment on above: Order Comment: Specimen Type : BLOOD SPECIMENOrdering Facility: [facility] Address: [address] [place] [address] Result Comment: Estimated Gl omerular Filtration Rate [...] accurately reflect actual GFR. Performed By: #### 93212-6 # ###[facility] LABORATORYCLIA [id number] [place] [address] [place] Glucose [Mass/Vol] 151 mg/dL High 74-99 [facility] Comment on above: Order Comment: Specimen Type : BLOOD SPECIMENOrdering Facility: [facility] Address: [address] [place], [place] [address] Result Comment: The Prydeinig Diabetes Association (ADA) provides guidance for cutoff [...] Standards of Medical Care in Diabetes 2016, [facility] Diabetes Association. Diabetes Care. 2016.39(Suppl 1). Performed By: #### 07644-7 # ###[facility] LABORATORYCLIA [id number] [place] [address] [place] Potassium [Moles/Vol] 4.2 mmol/L Normal 3.7-5.1 [facility] Comment on above: Order Comment: Specimen Type : BLOOD SPECIMENOrdering Facility: [facility] Address: [address] [place] [address] Performed By: #### 36607-7 # ###[facility] LABORATORYIA [id number] [address] [id number] [place] Sodium [Moles/Vol] 138 mmol/L Normal 136-144 [facility] Comment on above: Order Comment: Specimen Type : BLOOD SPECIMENOrdering Facility: [facility] Address: [address] [address] [address] Performed By: #### 19839-4 # ###[facility] LABORATORYCLIA [id number] [place] [address] [place] Urea nitrogen [Mass/Vol] 21 mg/dL Normal 7-21 [facility] Comment on above: Order Comment: Specimen Type : BLOOD SPECIMENOrdering Facility: [facility] Address: [address] [address] Performed By: #### 82544-7 # ###[facility] LABORATORYCLIA [id number] [place] [address] [facility] CASE MANAGEM on 01-01-2023 CASE MANAGEM Normal [facility] CBC panel Auto (Bld) on 01-01-2023 Erythrocyte distribution width 15.8 % High 11.5-15.0 [facility] (RBC) [Ratio] Comment on above: Order Comment: Specimen Type : BLOOD SPECIMENOrdering Facility: [facility] Address: [address] [address] Performed By: #### 23698-9 # ###[facility] LABORATORYCLIA [id number] [address] [place] Hematocrit (Bld) [Volume fraction] 34.8 % Low 36.0-4 6.0 [facility] Comment on above: Order Comment: Specimen Type : BLOOD SPECIMENOrdering Facility: [facility] Address: [address] [address] Performed By: #### 37575-4 # ###[facility] LABORATORYCLIA [id number] [place] [address] [place] Hemoglobin (Bld) [Mass/Vol] 10.2 g/dL Low 11.5-15.5 [facility] Comment on above: Order Comment: Specimen Type : BLOOD SPECIMENOrdering Facility: [facility] Address: [address] [address] Performed By: #### 72021-3 # ###[facility] LABORATORYCLIA [id number] [facility], [address] [place] MCH (RBC) [Entitic mass] 27.8 pg Normal 26.0-34.0 [facility] Comment on above: Order Comment: Specimen Type : BLOOD SPECIMENOrdering Facility: [facility] Address: [address] [place] [address] Performed By: #### 98894-2 # ###[facility] LABORATORYCLIA [id number] [facility], [address] [place] MCHC (RBC) [Mass/Vol] 29.3 g/dL Low 30.5-36.0 [facility] Comment on above: Order Comment: Specimen Type : BLOOD SPECIMENOrdering Facility: [facility] Address: [address] [place] [address] Performed By: #### 89508-9 # ###[facility] LABORATORYCLIA [id number] [address] MCV (RBC) [Entitic vol] 94.8 fL Normal 80.0-100.0 [facility] Comment on above: Order Comment: Specimen Type : BLOOD SPECIMENOrdering Facility: [facility] Address: [address] [place] [address] Performed By: #### 70528-3 # ###[facility] LABORATORYCLIA [id number] [address] Nucleated RBC (Bld) [#/Vol] 0.02 10*3/uL High <0.01 [facility] Comment on above: Order Comment: Specimen Type : BLOOD SPECIMENOrdering Facility: [facility] Address: [address] [place] [address] Performed By: #### 47544-3 # ###[facility] LABORATORYCLIA [id number] [facility], [address] [place] Platelet mean volume (Bld) 9.4 fL Normal 9.0-12.7 [facility] [Entitic vol] Comment on above: Order Comment: Specimen Type : BLOOD SPECIMENOrdering Facility: [facility] Address: [address] [address] Performed By: #### 46220-1 # ###[facility] LABORATORYCLIA [id number] [place] [address] [facility] [place] Platelets (Bld) [#/Vol] 426 10*3/uL High 150-400 [facility] Comment on above: Order Comment: Specimen Type : BLOOD SPECIMENOrdering Facility: [facility] Address: [address] [address] Performed By: #### 10598-8 # ###[facility] LABORATORYCLIA [id number] [place] [address] [place] RBC (Bld) [#/Vol] 3.67 10*6/uL Low 3.90-5.20 [facility] Comment on above: Order Comment: Specimen Type : BLOOD SPECIMENOrdering Facility: [facility] Address: [address] [address] Performed By: #### 77098-6 # ###[facility] LABORATORYCLIA [id number] [facility], [place] [id number] [place] [address] [place] WBC (Bld) [#/Vol] 13.51 10*3/uL High 3.70-11.00 [facility] Comment on above: Order Comment: Specimen Type : BLOOD SPECIMENOrdering Facility: [facility] Address: [address] [address] Performed By: #### 48503-1 # ###[facility] LABORATORYCLIA [id number] [place] [address] [facility] [place] CNDS on 01-01-2023 CNDS Normal [facility] CONSULT PROG on 01-01-2023 CONSULT PROG Normal [facility] THERAPY NT on 01-01-2023 THERAPY NT Normal [facility] THERAPY NT Normal [facility] ALLIED HEALTH on 12-31-2022 ALLIED HEALTH Normal [facility] ALLIED HEALTH Normal [facility] Basic metabolic 2000 panel on 3 Anion gap [Moles/Vol] 14 mmol/L Normal 9-18 [facility] Comment on above: Order Comment: Specimen Type : BLOOD SPECIMENOrdering Facility: [facility] Address: [address] [place] [address] Performed By: #### 32577-9, 48365-8, 2776- ####[facility]ORATORYCLIA [id number] [place] [address] [place] Calcium [Mass/Vol] 9.4 mg/dL Normal 8.5-10.2 [facility] Comment on above: Order Comment: Specimen Type : BLOOD SPECIMENOrdering Facility: [facility] Address: [address] [place] [address] Performed By: #### 50084-0, 44736-2, 2776- ####[facility] LABORATORYCLIA [id number] [place] [address] [place] Chloride [Moles/Vol] 94 mmol/L Low 97-105 [facility] Comment on above: Order Comment: Specimen Type : BLOOD SPECIMENOrdering Facility: [facility] Address: [address] [place] [address] Performed By: #### 34137-0, 73341-2, 2776-12 ####[facility] LABORATORYCLIA [id number] [place] [address] [place] CO2 [Moles/Vol] 29 mmol/L Normal 22-30 [facility] Comment on above: Order Comment: Specimen Type : BLOOD SPECIMENOrdering Facility: [facility] Address: [address] [place] [address] Performed By: #### 88285-4, 92797-1, 2776-12 ####[facility] LABORATORYCLIA [id number] [place] [address] [place] Creatinine [Mass/Vol] 0.98 mg/dL High 0.58-0.96 [facility] Comment on above: Order Comment: Specimen Type : BLOOD SPECIMENOrdering Facility: [facility] Address: [address] [place] [address] Performed By: #### 46687-9, 83250-6, 2777-1 ####[facility]ITAL[facility] [id number] [address] [place] ESTIMATED GLOMERULAR 73 mL/min/1.73m??? Normal >=60 A [facility] FILTRATION RATE Center Comment on above: Order Comment: Specimen Type : BLOOD SPECIMENOrdering Facility: [facility] Address: [address] [place] [address] Result Comment: Estimated Gl omerular Filtration Rate [...] accurately reflect actual GFR. Performed By: #### 62321-8, 14544-8, 2777-1 ####[facility] HOSPITALIA [id number] [place] [address] [place] Glucose [Mass/Vol] 173 mg/dL High 74-99 [facility] Comment on above: Order Comment: Specimen Type : BLOOD SPECIMENOrdering Facility: [facility] Address: [address] [place] [address] Result Comment: The Prydeinig Diabetes Association (ADA) provides guidance for cutoff [...] of Medical Care in Diabetes 2016, [facility] Diabetes Association. Diabetes Care. 2016.39(Suppl 1). Performed By: #### 08541-3, 82187-4, 7- ####[facility] LABORATORYCLIA [id number] [address] STATES OF [facility] Potassium [Moles/Vol] 3.9 mmol/L Normal 3.7-5.1 [facility] Comment on above: Order Comment: Specimen Type : BLOOD SPECIMENOrdering Facility: [facility] Address: [address] [address] Performed By: #### 96342-4, 75508-3, 277- ####[facility] LABORATORYCLIA [id number] [address] STATES OF [facility] Sodium [Moles/Vol] 137 mmol/L Normal 136-144 [facility] Comment on above: Order Comment: Specimen Type : BLOOD SPECIMENOrdering Facility: [facility] Address: [address] [place] [address] Performed By: #### 23341-1, 25511-7, 2776-12 ####[facility]CLIA [id number] [address] [place] Urea nitrogen [Mass/Vol] 19 mg/dL Normal 7-21 [facility] Comment on above: Order Comment: Specimen Type : BLOOD SPECIMENOrdering Facility: [facility] Address: [address] [place] [address] Performed By: #### 23554-2, 73290-6, 2776-12 ####[facility] LABORATORYCLIA [id number] [address] [place] CBC panel Auto (Bld) on 12-31-2022 Erythrocyte distribution width 15.9 % High 11.5-15.0 [facility] (RBC) [Ratio] Comment on above: Order Comment: Specimen Type : BLOOD SPECIMENOrdering Facility: [facility] Address: [address] [place] [address] Performed By: #### 04654-3 # ###[facility] LABORATORYCLIA [id number] [facility], [address] [place] Hematocrit (Bld) [Volume fraction] 34.1 % Low 36.0-4 6.0 [facility] Comment on above: Order Comment: Specimen Type : BLOOD SPECIMENOrdering Facility: [facility] Address: [address] [place] [address] Performed By: #### 74845-6 # ###[facility] LABORATORYCLIA [id number] [address] [place] Hemoglobin (Bld) [Mass/Vol] 10.1 g/dL Low 11.5-15.5 [facility] Comment on above: Order Comment: Specimen Type : BLOOD SPECIMENOrdering Facility: [facility] Address: [address] [place] [address] Performed By: #### 64725-6 # ###[facility] LABORATORYCLIA [id number] [address] [place] MCH (RBC) [Entitic mass] 27.8 pg Normal 26.0-34.0 [facility] Comment on above: Order Comment: Specimen Type : BLOOD SPECIMENOrdering Facility: [facility] Address: [address] [place] [address] Performed By: #### 43012-9 # ###[facility] LABORATORYCLIA [id number] [facility], [address] [place] MCHC (RBC) [Mass/Vol] 29.6 g/dL Low 30.5-36.0 [facility] Comment on above: Order Comment: Specimen Type : BLOOD SPECIMENOrdering Facility: [facility] Address: [address] [place] [address] Performed By: #### 84179-7 # ###[facility] LABORATORYCLIA [id number] [address] [place] MCV (RBC) [Entitic vol] 93.9 fL Normal 80.0-100.0 [facility] Comment on above: Order Comment: Specimen Type : BLOOD SPECIMENOrdering Facility: [facility] Address: [address] [place] [address] [place] [address] Performed By: #### 68667-7 # ###[facility]ORATORYCLIA [id number] [facility], [address] [place] Nucleated RBC (Bld) [#/Vol] 10*3/uL Normal <0.01 [facility] Comment on above: Order Comment: Specimen Type : BLOOD SPECIMENOrdering Facility: [facility] Address: [address] [address] Performed By: #### 48906-1 # ###[facility] LABORATORYCLIA [id number] [facility], [address] [place] Platelet mean volume (Bld) 9.2 fL Normal 9.0-12.7 [facility] [Entitic vol] Comment on above: Order Comment: Specimen Type : BLOOD SPECIMENOrdering Facility: [facility] Address: [address] [place] [address] Performed By: #### 61087-0 # ###[facility] LABORATORYCLIA [id number] [facility], [address] [place] Platelets (Bld) [#/Vol] 435 10*3/uL High 150-400 [facility] Comment on above: Order Comment: Specimen Type : BLOOD SPECIMENOrdering Facility: [facility] Address: [address] [address] Performed By: #### 54735-6 # ###[facility] LABORATORYCLIA [id number] [facility], [address] [place] RBC (Bld) [#/Vol] 3.63 10*6/uL Low 3.90-5.20 [facility] Comment on above: Order Comment: Specimen Type : BLOOD SPECIMENOrdering Facility: [facility] Address: [address] [address] Performed By: #### 46245-5 # ###[facility] LABORATORYCLIA [id number] [place] [address] [place] WBC (Bld) [#/Vol] 15.84 10*3/uL High 3.70-11.00 [facility] Comment on above: Order Comment: Specimen Type : BLOOD SPECIMENOrdering Facility: [facility] Address: [address] [place] [address] Performed By: #### 57696-9 # ###[facility] LABORATORYCLIA [id number] [address] OF [place] CONSULT PROG on 12-31-2022 CONSULT PROG Normal [facility] CONSULT PROG Normal [facility] Calcium.ionized [Moles/Vol] on 12-31-19 23 Calcium.ionized (BldV) 1.16 mmol/L Normal 1.08-1.30 [facility] [Mass/Vol] [place] Comment on above: Order Comment: Specimen Type : BLOOD SPECIMENOrdering Facility: [facility] Address: [address] [place] [address] Performed By: #### 1994-0 ## ##[facility] LABORATORYCLIA [id number] [address] [place] Calcium.ionized adjusted to pH 1.12 mmol/L Normal 1.08-1.30 [facility] 7.4 (Bld) [Moles/Vol] [place] Comment on above: Order Comment: Specimen Type : BLOOD SPECIMENOrdering Facility: [facility] Address: [address] [place] [address] Performed By: #### 1994-0 ## ##[facility] LABORATORYCLIA [id number] [address] [place] Magnesium SerPl-mCnc on 12-31-2022 Magnesium [Mass/Vol] 1.5 mg/dL Low 1.7-2.3 [facility] Comment on above: Order Comment: Specimen Type : BLOOD SPECIMENOrdering Facility: [facility] Address: [address] [place] [address] Performed By: #### 04800-1, 82473-0, 2777-1 ####[facility] LABORATORYCLIA [id number] [place] [address] [facility] NURSING PROG on 12-31-2022 NURSING PROG Normal [facility] Phosphate SerPl-mCnc on 12-31-2022 Phosphate [Mass/Vol] 3.5 mg/dL Normal 2.7-4.8 [facility] Comment on above: Order Comment: Specimen Type : BLOOD SPECIMENOrdering Facility: [facility] Address: [address] [place] [address] Performed By: #### 98305-7, 06373-4, 2777-1 ####[facility] LABORATORYCLIA [id number] [address] THERAPY NT on 12-31-2022 THERAPY NT Normal [facility] XR CHEST 1V FRONTAL on 12-31-2022 XR CHEST 1V FRONTAL Normal [facility] ALLIED HEALTH on 12-30-2022 ALLIED HEALTH Normal [facility] ARTERIAL BLOOD GASES on 12-30-2022 Base excess Calc (Bld) [Moles/Vol] 8 mmol/L High 0-2 [facility] Comment on above: Order Comment: Specimen Type : ARTERIAL BLOOD SPECIMENOrdering Facility: [facility] Address: [address] [place] [address] Performed By: #### ALLBG ### #[facility] LABORATORYCLIA [id number] [address] OF [facility] Body temperature 97.34 [degF] Normal [facility] Comment on above: Order Comment: Specimen Type : ARTERIAL BLOOD SPECIMENOrdering Facility: [facility] Address: [address] [place] [address] Performed By: #### ALLBG ### #[facility] LABORATORYCLIA [id number] [address] OF [place] Calcium.ionized (BldV) 1.19 mmol/L Normal 1.08-1.30 [facility] [Mass/Vol] [place] Comment on above: Order Comment: Specimen Type : ARTERIAL BLOOD SPECIMENOrdering Facility: [facility] Address: [address] [address] Performed By: #### ALLBG ### #[facility] LABORATORYCLIA [id number] [address] [place] Calcium.ionized adjusted to pH 1.20 mmol/L Normal 1.08-1.30 [facility] 7.4 (BldA) [Moles/Vol] Genoveva burciaga Comment on above: Order Comment: Specimen Type : ARTERIAL BLOOD SPECIMENOrdering Facility: [facility] Address: [address] [address] Performed By: #### ALLBG ### #[facility] LABORATORYCLIA [id number] [address] [place] Carboxyhemoglobin (BldA) [Mass 1.3 % Normal 0.0-2.0 [facility] Center Comment on above: Order Comment: Specimen Type : ARTERIAL BLOOD SPECIMENOrdering Facility: [facility] Address: [address] [address] Result Comment: Carboxyhemog lobin Reference Range for Smokers: 2.0-8.0% Performed By: #### ALLBG ### #[facility] LABORATORYCLIA [id number] [place] [address] [place] Chloride [Moles/Vol] 100 mmol/L Low 102-109 [facility] Comment on above: Order Comment: Specimen Type : ARTERIAL BLOOD SPECIMENOrdering Facility: [facility] Address: [address] [address] Performed By: #### ALLBG ### #[facility] LABORATORYCLIA [id number] [address] [place] CO2 (Bld) [Partial pressure] 51 mm Hg High 36-46 [facility] Comment on above: Order Comment: Specimen Type : ARTERIAL BLOOD SPECIMENOrdering Facility: [facility] Address: [address] [address] Performed By: #### ALLBG ### #[facility] LABORATORYCLIA [id number] [facility], [place] [address] [place] [address] [place] CO2 [Moles/Vol] 30 mmol/L High 22-28 [facility] Comment on above: Order Comment: Specimen Type : ARTERIAL BLOOD SPECIMENOrdering Facility: [facility] Address: [address] [address] Performed By: #### ALLBG ### #[facility] LABORATORYCLIA [id number] [facility] [address] [place] CO2 adjusted to patient's actual 49 mmHg High 36-46 [facility] temperature (Bld) [Partial pressure] Comment on above: Order Comment: Specimen Type : ARTERIAL BLOOD SPECIMENOrdering Facility: [facility] Address: [address] [address] Performed By: #### ALLBG ### #[facility] LABORATORYCLIA [id number] [facility] [address] [place] Glucose [Mass/Vol] 168 mg/dL High 60-105 [facility] Comment on above: Order Comment: Specimen Type : ARTERIAL BLOOD SPECIMENOrdering Facility: [facility] Address: [address] [address] Performed By: #### ALLBG ### #[facility] LABORATORYCLIA [id number] [facility], [address] [place] HCO3 (Bld) [Moles/Vol] 33 mmol/L High 22-26 [facility] Comment on above: Order Comment: Specimen Type : ARTERIAL BLOOD SPECIMENOrdering Facility: [facility] Address: [address] [address] Performed By: #### ALLBG ### #[facility] LABORATORYCLIA [id number] [address] OF [place] Hematocrit (Bld) [Volume fraction] 30.2 % Low 36.0-4 6.0 [facility] Comment on above: Order Comment: Specimen Type : ARTERIAL BLOOD SPECIMENOrdering Facility: [facility] Address: [address] [address] Performed By: #### ALLBG ### #[facility] LABORATORYCLIA [id number] [facility], [address] OF [facility] Hemoglobin (Bld) [Mass/Vol] 9.8 g/dL Low 11.5-15.5 [facility] Comment on above: Order Comment: Specimen Type : ARTERIAL BLOOD SPECIMENOrdering Facility: [facility] Address: [address] [place] [address] Performed By: #### ALLBG ### #[facility] LABORATORYCLIA [id number] [facility] [place] [address] [place] [address] OF [place] Lactate [Moles/Vol] 0.8 mmol/L Normal 0.5-2.2 [facility] Comment on above: Order Comment: Specimen Type : ARTERIAL BLOOD SPECIMENOrdering Facility: [facility] Address: [address] [place] [address] Performed By: #### ALLBG ### #[facility] LABORATORYCLIA [id number] [facility], [address] [place] Methemoglobin (Bld) [Mass fraction] 1.0 % Normal 0.0-1 .5 [facility] Comment on above: Order Comment: Specimen Type : ARTERIAL BLOOD SPECIMENOrdering Facility: [facility] Address: [address] [place] [address] Performed By: #### ALLBG ### #[facility] LABORATORYCLIA [id number] [facility], [address] [place] O2 THERAPY Ventilator Normal [facility] Comment on above: Order Comment: Specimen Type : ARTERIAL BLOOD SPECIMENOrdering Facility: [facility] Address: [address] [place] [address] Performed By: #### ALLBG ### #[facility] LABORATORYCLIA [id number] [facility], [address] OF [place] Oxygen (Bld) [Partial pressure] 72 mm Hg Low 85-95 [facility] Comment on above: Order Comment: Specimen Type : ARTERIAL BLOOD SPECIMENOrdering Facility: [facility] Address: [address] [address] Performed By: #### ALLBG ### #[facility]ORATORYCLIA [id number] [place] [address] [facility] Oxygen adjusted to patient's actual 69 mmHg Low 85-95 [facility] temperature (Bld) [Partial pressure] Comment on above: Order Comment: Specimen Type : ARTERIAL BLOOD SPECIMENOrdering Facility: [facility] Address: [address] [address] Performed By: #### ALLBG ### #[facility]ORATORYCLIA [id number] [facility] [place] [id number] [place] [address] Oxyhemoglobin (BldA) [Mass fraction] 91 % Low 95-9 8 [facility] Comment on above: Order Comment: Specimen Type : ARTERIAL BLOOD SPECIMENOrdering Facility: [facility] Address: [address] [address] Performed By: #### ALLBG ### #[facility]ORATORYCLIA [id number] [place] [address] [facility] pH (Bld) 7.42 [pH] Normal 7.35-7.45 [facility] Comment on above: Order Comment: Specimen Type : ARTERIAL BLOOD SPECIMENOrdering Facility: [facility] Address: [address] [address] Performed By: #### ALLBG ### #[facility]ORATORYCLIA [id number] [place] [address] [facility] pH adjusted to patient's actual 7.43 Normal 7.35-7.45 [facility] temperature (Bld) Comment on above: Order Comment: Specimen Type : ARTERIAL BLOOD SPECIMENOrdering Facility: [facility] Address: [address] [address] Performed By: #### ALLBG ### #[facility] LABORATORYCLIA [id number] [place] [address] [facility] Potassium [Moles/Vol] 3.9 mmol/L Normal 3.5-5.0 [facility] Comment on above: Order Comment: Specimen Type : ARTERIAL BLOOD SPECIMENOrdering Facility: [facility] Address: [address] [address] Performed By: #### ALLBG ### #[facility] LABORATORYCLIA [id number] [address] [place] Sodium [Moles/Vol] 137 mmol/L Normal 136-144 [facility] Comment on above: Order Comment: Specimen Type : ARTERIAL BLOOD SPECIMENOrdering Facility: [facility] Address: [address] [address] Performed By: #### ALLBG ### #[facility] LABORATORYCLIA [id number] [address] [id number] [place] Basic metabolic 2000 panel on 3 Anion gap [Moles/Vol] 11 mmol/L Normal 9-18 [facility] Comment on above: Order Comment: Specimen Type : BLOOD SPECIMENOrdering Facility: [facility] Address: [address] [address] Performed By: #### 37674-0, 2776-12, ####[facility] LABORATORYCLIA [id number] [place] [address] [place] Calcium [Mass/Vol] 9.4 mg/dL Normal 8.5-10.2 [facility] Comment on above: Order Comment: Specimen Type : BLOOD SPECIMENOrdering Facility: [facility] Address: [address] [address] Performed By: #### 90166-4, 2776-12, ####[facility] LABORATORYCLIA [id number] [address] [place] Chloride [Moles/Vol] 94 mmol/L Low 97-105 [facility] Comment on above: Order Comment: Specimen Type : BLOOD SPECIMENOrdering Facility: [facility] Address: [address] [address] Performed By: #### 70976-5, 2776-12, ####[facility]NOSTIC INSTITUTECLIA [id number] [place] [address] [place] CO2 [Moles/Vol] 33 mmol/L High 22-30 [facility] Comment on above: Order Comment: Specimen Type : BLOOD SPECIMENOrdering Facility: [facility] Address: [address] [place] [address] Performed By: #### 71391-3, 2776-12, ####[facility] HOSPITALIA [id number] [address] [id number] [place] Creatinine [Mass/Vol] 1.13 mg/dL High 0.58-0.96 [facility] Comment on above: Order Comment: Specimen Type : BLOOD SPECIMENOrdering Facility: [facility] Address: [address] [place] [address] Performed By: #### 50584-0, 2776-12, ####[facility] HOSPITALIA [id number] [address] OF [facility] ESTIMATED GLOMERULAR 61 mL/min/1.73m??? Normal >=60 A [facility] FILTRATION RATE Center Comment on above: Order Comment: Specimen Type : BLOOD SPECIMENOrdering Facility: [facility] Address: [address] [place] [address] Result Comment: Estimated Gl omerular Filtration Rate [...] accurately reflect actual GFR. Performed By: #### 62873-0, 2776-12, ####[facility] LABORATORYCLIA [id number] [place] [address] [place] Glucose [Mass/Vol] 155 mg/dL High 74-99 [facility] Comment on above: Order Comment: Specimen Type : BLOOD SPECIMENOrdering Facility: [facility] Address: [address] [address] Result Comment: The [place] Diabetes Association (ADA) provides guidance for cutoff [...] Standards of Medical Care in Diabetes 2016, [facility] Diabetes Association. Diabetes Care. 2016.39(Suppl 1). Performed By: #### 58097-8, 27705-31, ####NYThe [employer]'s Alternative [facility] LABORATORYCLIA [id number] [place] [address] [place] Potassium [Moles/Vol] 3.4 mmol/L Low 3.7-5.1 [facility] Comment on above: Order Comment: Specimen Type : BLOOD SPECIMENOrdering Facility: [facility] Address: [address] [id number] Performed By: #### 09191-0, 27705-31, ####[facility]ories[facility] LABORATORYCLIA [id number] [place] [address] [place] Sodium [Moles/Vol] 138 mmol/L Normal 136-144 [facility] Comment on above: Order Comment: Specimen Type : BLOOD SPECIMENOrdering Facility: [facility] Address: [address] [facility] SYSTEMMonae [address] Performed By: #### 35472-9, 27705-31, ####[employer] [facility] LABORATORYCLIA [id number] [place] [address] [place] Urea nitrogen [Mass/Vol] 22 mg/dL High 7-21 [facility] Comment on above: Order Comment: Specimen Type : BLOOD SPECIMENOrdering Facility: [facility] Address: [address] [place] [address] Performed By: #### 02704-1, 2777-1, 25877-8 ####[facility] LABORATORYCLIA [id number] [address] OF [place] CASE MANAGEM on 12-30-2022 CASE MANAGEM Normal [facility] CBC panel Auto (Bld) on 12-30-2022 Erythrocyte distribution width 16.1 % High 11.5-15.0 [facility] (RBC) [Ratio] Comment on above: Order Comment: Specimen Type : BLOOD SPECIMENOrdering Facility: [facility] Address: [address] [place] [address] Performed By: #### 44056-0 # ###[facility] LABORATORYCLIA [id number] [address] [place] Hematocrit (Bld) [Volume fraction] 30.3 % Low 36.0-4 6.0 [facility] Comment on above: Order Comment: Specimen Type : BLOOD SPECIMENOrdering Facility: [facility] Address: [address] [place] [address] Performed By: #### 76393-8 # ###[facility] LABORATORYCLIA [id number] [address] [place] Hemoglobin (Bld) [Mass/Vol] 9.0 g/dL Low 11.5-15.5 [facility] Comment on above: Order Comment: Specimen Type : BLOOD SPECIMENOrdering Facility: [facility] Address: [address] [place] [address] Performed By: #### 79989-0 # ###[facility] LABORATORYCLIA [id number] [place] [address] [place] MCH (RBC) [Entitic mass] 27.8 pg Normal 26.0-34.0 [facility] Comment on above: Order Comment: Specimen Type : BLOOD SPECIMENOrdering Facility: [facility] Address: [address] [address] Performed By: #### 31550-6 # ###[facility] LABORATORYCLIA [id number] [facility], [address] STATES [facility] MCHC (RBC) [Mass/Vol] 29.7 g/dL Low 30.5-36.0 [facility] Comment on above: Order Comment: Specimen Type : BLOOD SPECIMENOrdering Facility: [facility] Address: [address] [address] Performed By: #### 16503-1 # ###[facility] LABORATORYCLIA [id number] [facility], [address] [place] MCV (RBC) [Entitic vol] 93.5 fL Normal 80.0-100.0 [facility] Comment on above: Order Comment: Specimen Type : BLOOD SPECIMENOrdering Facility: [facility] Address: [address] [address] Performed By: #### 69276-3 # ###[facility] LABORATORYCLIA [id number] [facility], [address] OF [place] Nucleated RBC (Bld) [#/Vol] 10*3/uL Normal <0.01 [facility] Comment on above: Order Comment: Specimen Type : BLOOD SPECIMENOrdering Facility: [facility] Address: [address] [address] Performed By: #### 47430-6 # ###[facility] LABORATORYCLIA [id number] [facility], [address] [place] Platelet mean volume (Bld) 9.5 fL Normal 9.0-12.7 [facility] [Entitic vol] Comment on above: Order Comment: Specimen Type : BLOOD SPECIMENOrdering Facility: [facility] Address: [address] [address] Performed By: #### 18533-9 # ###[facility] LABORATORYCLIA [id number] [facility] [place] [place] [address] [place] Platelets (Bld) [#/Vol] 401 10*3/uL High 150-400 [facility] Comment on above: Order Comment: Specimen Type : BLOOD SPECIMENOrdering Facility: [facility] Address: [address] [place] [address] Performed By: #### 96641-6 # ###[facility] LABORATORYCLIA [id number] [place] [address] [place] RBC (Bld) [#/Vol] 3.24 10*6/uL Low 3.90-5.20 [facility] Comment on above: Order Comment: Specimen Type : BLOOD SPECIMENOrdering Facility: [facility] Address: [address] [place] [address] Performed By: #### 48754-8 # ###[facility] LABORATORYCLIA [id number] [facility], [address] [place] WBC (Bld) [#/Vol] 14.20 10*3/uL High 3.70-11.00 [facility] Comment on above: Order Comment: Specimen Type : BLOOD SPECIMENOrdering Facility: [facility] Address: [address] [place] [address] Performed By: #### 49863-6 # ###[facility] LABORATORYCLIA [id number] [facility], [id number] CONSULT on 12-30-2022 CONSULT Normal [facility] CON[facility] PROG on 12-30-2022 CONSULT PROG Normal [facility] Calcium.ionized [Moles/Vol] on 12-30-19 23 Calcium.ionized (BldV) 1.19 mmol/L Normal 1.08-1.30 [facility] [Mass/Vol] [place] Comment on above: Order Comment: Specimen Type : BLOOD SPECIMENOrdering Facility: [facility] Address: [address] [place] [address] Performed By: #### 1995-0 ## ##[facility] LABORATORYCLIA [id number] [address] OF [place] Calcium.ionized adjusted to pH 1.23 mmol/L Normal 1.08-1.30 [facility] 7.4 (Bld) [Moles/Vol] Center Comment on above: Order Comment: Specimen Type : BLOOD SPECIMENOrdering Facility: [facility] Address: [address] [place] [address] Performed By: #### 1995-0 ## ##[facility] LABORATORYCLIA [id number] [address] OF [place] Magnesium SerPl-mCnc on 12-30-2022 Magnesium [Mass/Vol] 1.7 mg/dL Normal 1.7-2.3 [facility] Comment on above: Order Comment: Specimen Type : BLOOD SPECIMENOrdering Facility: [facility] Address: [address] [place] [address] Performed By: #### 96821-0, 27705-31, ####[facility]AGNOST[facility] INSTITUTECLIA [id number] [place] [address] [place] NUTRITION on 12-30-2022 NUTRITION Normal [facility] Phosphate SerPl-mCnc on 12-30-2022 Phosphate [Mass/Vol] 4.2 mg/dL Normal 2.7-4.8 [facility] Comment on above: Order Comment: Specimen Type : BLOOD SPECIMENOrdering Facility: [facility] Address: [address] [place] [address] Performed By: #### 39025-4, 27705-31, ####[facility] INSTITUTECLIA [id number] [place] [address] [place] XR CHEST 1V FRONTAL on 12-30-2022 XR CHEST 1V FRONTAL Normal [facility] ALLIED HEALTH on 12-29-2022 ALLIED HEALTH Normal [facility] Bacteria Spec Resp Cult on 12-29-2022 Bacteria identified CULTURE, RESPIRATORY: Normal [facility] Respiratory culture Nom No growth 2 [facility] (Unsp spec) GRAM STAIN: No organisms seen Many Polymorphonuclear leukocytes Rare Epithelial cells Comment on above: Performed By: #### 81522-6 # ###[facility] LABORATORYCLIA [id number] [place] [address] [place] Basic metabolic 2000 panel on 3 Anion gap [Moles/Vol] 10 mmol/L Normal 9-18 [facility] Comment on above: Order Comment: Specimen Type : BLOOD SPECIMENOrdering Facility: [facility] Address: [address] [place] [address] Performed By: #### 79576-5, , 2776-12 ####[facility] LABORATORYCLIA [id number] [place] [address] [place] Calcium [Mass/Vol] 9.5 mg/dL Normal 8.5-10.2 [facility] Comment on above: Order Comment: Specimen Type : BLOOD SPECIMENOrdering Facility: [facility] Address: [address] [place] [address] Performed By: #### 66834-1, , 2776-12 ####[facility] LABORATORYCLIA [id number] [place] [address] [place] Chloride [Moles/Vol] 94 mmol/L Low 97-105 [facility] Comment on above: Order Comment: Specimen Type : BLOOD SPECIMENOrdering Facility: [facility] Address: [address] [place] [address] Performed By: #### 83004-1, , 2776-12 ####[facility] LABORATORYCLIA [id number] [place] [address] [place] CO2 [Moles/Vol] 33 mmol/L High 22-30 [facility] Comment on above: Order Comment: Specimen Type : BLOOD SPECIMENOrdering Facility: [facility] Address: [address] [place] [address] Performed By: #### 57960-3, , 2776-12 ####[facility] LABORATORYCLIA [id number] [place] [address] [place] Creatinine [Mass/Vol] 1.17 mg/dL High 0.58-0.96 [facility] Comment on above: Order Comment: Specimen Type : BLOOD SPECIMENOrdering Facility: [facility] Address: [place] [address] Performed By: #### 96438-9, , 2776-12 ####[facility] INSTITUTECLIA [id number] [place] [address] [place] ESTIMATED GLOMERULAR 59 mL/min/1.73m??? Low >=60 A [facility] Comment on above: Order Comment: Specimen Type : BLOOD SPECIMENOrdering Facility: [facility] Address: [address] [place] [address] Result Comment: Estimated Gl omerular Filtration Rate [...] accurately reflect actual GFR. Performed By: #### 41234-2, , 2776-12 ####[facility] HOSPITALIA [id number] [place] [address] [place] Glucose [Mass/Vol] 267 mg/dL High 74-99 [facility] Comment on above: Order Comment: Specimen Type : BLOOD SPECIMENOrdering Facility: [facility] Address: [address] Result Comment: The [place] Diabetes Association (ADA) provides guidance for cutoff [...] Standards of Medical Care in Diabetes 2016, [facility] Diabetes Association. Diabetes Care. 2016.39(Suppl 1). Performed By: #### 20787-0, , 2776-12 ####[facility] LABORATORYCLIA [id number] [place] [address] [place] Potassium [Moles/Vol] 4.2 mmol/L Normal 3.7-5.1 [facility] Comment on above: Order Comment: Specimen Type : BLOOD SPECIMENOrdering Facility: [facility] Address: [address] [place] [address] Performed By: #### 04798-9, , 2776-12 ####[facility] INSTITUTECLIA [id number] [address] STATES OF [facility] Sodium [Moles/Vol] 137 mmol/L Normal 136-144 [facility] Comment on above: Order Comment: Specimen Type : BLOOD SPECIMENOrdering Facility: [facility] Address: [address] [place] [address] Performed By: #### 40267-0, , 2776-12 ####[facility] INSTITUTECLIA [id number] [address] [place] Urea nitrogen [Mass/Vol] 19 mg/dL Normal 7-21 [facility] Comment on above: Order Comment: Specimen Type : BLOOD SPECIMENOrdering Facility: [facility] Address: [address] [place] [place] [address] Performed By: #### 60188-6, , 2776-12 ####[facility] LABORATORYCLIA [id number] [address] [place] CBC panel Auto (Bld) on 12-29-2022 Erythrocyte distribution width 16.2 % High 11.5-15.0 [facility] (RBC) [Ratio] Comment on above: Order Comment: Specimen Type : BLOOD SPECIMENOrdering Facility: [facility] Address: [address] [place] [address] Performed By: #### 35624-1 # ###[facility] LABORATORYCLIA [id number] [address] Hematocrit (Bld) [Volume fraction] 29.8 % Low 36.0-4 6.0 [facility] Comment on above: Order Comment: Specimen Type : BLOOD SPECIMENOrdering Facility: [facility] Address: [address] [place] [place] [address] Performed By: #### 60788-4 # ###[facility] LABORATORYCLIA [id number] [address] Hemoglobin (Bld) [Mass/Vol] 8.9 g/dL Low 11.5-15.5 [facility] Comment on above: Order Comment: Specimen Type : BLOOD SPECIMENOrdering Facility: [facility] Address: [address] [place] [address] Performed By: #### 26932-5 # ###[facility] LABORATORYCLIA [id number] [address] STATES OF [facility] MCH (RBC) [Entitic mass] 28.0 pg Normal 26.0-34.0 [facility] Comment on above: Order Comment: Specimen Type : BLOOD SPECIMENOrdering Facility: [facility] Address: [address] [place] [address] Performed By: #### 10253-7 # ###[facility] LABORATORYCLIA [id number] [address] [place] MCHC (RBC) [Mass/Vol] 29.9 g/dL Low 30.5-36.0 [facility] Comment on above: Order Comment: Specimen Type : BLOOD SPECIMENOrdering Facility: [facility] Address: [address] [place] [place] [address] Performed By: #### 55038-2 # ###[facility] LABORATORYCLIA [id number] [address] MCV (RBC) [Entitic vol] 93.7 fL Normal 80.0-100.0 [facility] Comment on above: Order Comment: Specimen Type : BLOOD SPECIMENOrdering Facility: [facility] Address: [address] [place] [address] Performed By: #### 57445-1 # ###[facility]ORATORYCLIA [id number] [place] [address] [place] Nucleated RBC (Bld) [#/Vol] 0.02 10*3/uL High <0.01 [facility] Comment on above: Order Comment: Specimen Type : BLOOD SPECIMENOrdering Facility: [facility] Address: [address] [place] [place] [address] Performed By: #### 58214-9 # ###[facility] LABORATORYCLIA [id number] [place] [address] [place] Platelet mean volume (Bld) 9.5 fL Normal 9.0-12.7 [facility] [Entitic vol] Comment on above: Order Comment: Specimen Type : BLOOD SPECIMENOrdering Facility: [facility] Address: [address] [place] [address] Performed By: #### 23451-2 # ###[facility] LABORATORYCLIA [id number] [facility], [address] [place] Platelets (Bld) [#/Vol] 394 10*3/uL Normal 150-400 [facility] Comment on above: Order Comment: Specimen Type : BLOOD SPECIMENOrdering Facility: [facility] Address: [address] Performed By: #### 30744-0 # ###[facility] LABORATORYCLIA [id number] [facility] [place], [place] [address] [place] RBC (Bld) [#/Vol] 3.18 10*6/uL Low 3.90-5.20 [facility] Comment on above: Order Comment: Specimen Type : BLOOD SPECIMENOrdering Facility: [facility] Address: [address] Performed By: #### 89330-1 # ###[facility] LABORATORYCLIA [id number] [place] [address] [place] WBC (Bld) [#/Vol] 16.20 10*3/uL High 3.70-11.00 [facility] Comment on above: Order Comment: Specimen Type : BLOOD SPECIMENOrdering Facility: [facility] Address: [address] [place] [id number] Performed By: #### 12565-1 # ###[facility] LABORATORYCLIA [id number] [address] [place] CONSULT PROG on 12-29-2022 CONSULT PROG Normal [facility] CONSULT PROG Normal [facility] Calcium.ionized [Moles/Vol] on 12-29-19 23 Calcium.ionized (BldV) 1.16 mmol/L Normal 1.08-1.30 [facility] [Mass/Vol] [place] Comment on above: Order Comment: Specimen Type : BLOOD SPECIMENOrdering Facility: [facility] Address: [address] [place] [phone] Performed By: #### 1994-0 ## ##[facility] INSTITUTECLIA [id number] [address] [place] Calcium.ionized adjusted to pH 1.20 mmol/L Normal 1.08-1.30 [facility] 7.4 (Bld) [Moles/Vol] [place] Comment on above: Order Comment: Specimen Type : BLOOD SPECIMENOrdering Facility: [facility] Address: [address] [phone] Performed By: #### 1994- ## ##[facility] LABORATORYCLIA [id number] [address] [place] Magnesium SerPl-mCnc on 12-29-2022 Magnesium [Mass/Vol] 1.6 mg/dL Low 1.7-2.3 [facility] Comment on above: Order Comment: Specimen Type : BLOOD SPECIMENOrdering Facility: [facility] Address: [place] [address] Performed By: #### 64017-9, 17341-3, 2776-12 ####[facility] LABORATORYCLIA [id number] [place] [address] [place] Phosphate SerPl-mCnc on 12-29-2022 Phosphate [Mass/Vol] 4.6 mg/dL Normal 2.7-4.8 [facility] Comment on above: Order Comment: Specimen Type : BLOOD SPECIMENOrdering Facility: [facility] Address: [address] [place] [address] Performed By: #### 13890-0, 93105-0, 2776-12 ####[facility]ORATORYCLIA [id number] [place] [address] [place] XR CHEST 1V FRONTAL on 12-29-2022 XR CHEST 1V FRONTAL Normal [facility] Basic metabolic 2000 panel on Anion gap [Moles/Vol] 11 mmol/L Normal 9-18 [facility] Comment on above: Order Comment: Specimen Type : BLOOD SPECIMENOrdering Facility: [facility] Address: [address] [place] [address] Performed By: #### 61127-5, 2776-12 ####[facility] LABORATORYCLIA [id number] [place] [address] [place] Calcium [Mass/Vol] 9.0 mg/dL Normal 8.5-10.2 [facility] Comment on above: Order Comment: Specimen Type : BLOOD SPECIMENOrdering Facility: [facility] Address: [address] [place] [address] Performed By: #### 20162-4, 2776-12 ####[facility] LABORATORYCLIA [id number] [place] [address] [place] Chloride [Moles/Vol] 94 mmol/L Low 97-105 [facility] Comment on above: Order Comment: Specimen Type : BLOOD SPECIMENOrdering Facility: [facility] Address: [address] [place] [address] Performed By: #### 21415-7, 2776-12 ####[facility] LABORATORYCLIA [id number] [place] [address] [place] CO2 [Moles/Vol] 30 mmol/L Normal 22-30 [facility] Comment on above: Order Comment: Specimen Type : BLOOD SPECIMENOrdering Facility: [facility] Address: [address] [place] [address] Performed By: #### 25565-6, 2776-12 ####[facility] LABORATORYCLIA [id number] [place], [place] [address] [place] [address] [place] Creatinine [Mass/Vol] 1.10 mg/dL High 0.58-0.96 [facility] Comment on above: Order Comment: Specimen Type : BLOOD SPECIMENOrdering Facility: [facility] Address: [address] [place] [address] Performed By: #### 40340-2, 2776-12 ####[facility] HOSPITALIA [id number] [address] [place] ESTIMATED GLOMERULAR 63 mL/min/1.73m??? Normal >=60 A [facility] Comment on above: Order Comment: Specimen Type : BLOOD SPECIMENOrdering Facility: [facility] Address: [address] [place] [address] Result Comment: Estimated Gl omerular Filtration Rate [...] accurately reflect actual GFR. Performed By: #### 01233-5, 2776-12 ####[facility] LABORATORYCLIA [id number] [place] [address] [place] Glucose [Mass/Vol] 247 mg/dL High 74-99 [facility] Comment on above: Order Comment: Specimen Type : BLOOD SPECIMENOrdering Facility: [facility] Address: [address] [place] [address] Result Comment: The [place] Diabetes Association (ADA) provides guidance for cutoff [...] Standards of Medical Care in Diabetes 2016, [facility] Diabetes Association. Diabetes Care. 2016.39(Suppl 1). Performed By: #### 83857-2, 2777- ####[facility] LABORATORYCLIA [id number] [place] [address] [place] Potassium [Moles/Vol] 4.2 mmol/L Normal 3.7-5.1 [facility] Comment on above: Order Comment: Specimen Type : BLOOD SPECIMENOrdering Facility: [facility] Address: [address] [place] [address] Performed By: #### 63298-5, 2776-12 ####[facility] LABORATORYCLIA [id number] [place] [address] [place] Sodium [Moles/Vol] 135 mmol/L Low 136-144 [facility] Comment on above: Order Comment: Specimen Type : BLOOD SPECIMENOrdering Facility: [facility] Address: [address] [place], [place] [address] Performed By: #### 11395-3, 27705-31 ####[facility] LABORATORYCLIA [id number] [place] [address] [place] Urea nitrogen [Mass/Vol] 11 mg/dL Normal 7-21 [facility] Comment on above: Order Comment: Specimen Type : BLOOD SPECIMENOrdering Facility: [facility] Address: [address] [place] [place] [address] Performed By: #### 30846-8, 2777-1 ####[facility] LABORATORYCLIA [id number] [address] CBC panel Auto (Bld) on 12-28-2022 Erythrocyte distribution width 16.3 % High 11.5-15.0 [facility] (RBC) [Ratio] Comment on above: Order Comment: Specimen Type : BLOOD SPECIMENOrdering Facility: [facility] Address: [address] [place] [place] [address] Performed By: #### 26787-9 # ###[facility] LABORATORYCLIA [id number] [address] OF [facility] Hematocrit (Bld) [Volume fraction] 29.8 % Low 36.0-4 6.0 [facility] Comment on above: Order Comment: Specimen Type : BLOOD SPECIMENOrdering Facility: [facility] Address: [address] [place] [address] Performed By: #### 86265-4 # ###[facility] LABORATORYCLIA [id number] [address] Hemoglobin (Bld) [Mass/Vol] 8.9 g/dL Low 11.5-15.5 [facility] Comment on above: Order Comment: Specimen Type : BLOOD SPECIMENOrdering Facility: [facility] Address: [address] [place] [address] Performed By: #### 99262-2 # ###[facility] LABORATORYCLIA [id number] [address] OF [place] MCH (RBC) [Entitic mass] 28.2 pg Normal 26.0-34.0 [facility] Comment on above: Order Comment: Specimen Type : BLOOD SPECIMENOrdering Facility: [facility] Address: [address] [place] [address] Performed By: #### 08452-7 # ###[facility] LABORATORYCLIA [id number] [facility], [address] [place] MCHC (RBC) [Mass/Vol] 29.9 g/dL Low 30.5-36.0 [facility] Comment on above: Order Comment: Specimen Type : BLOOD SPECIMENOrdering Facility: [facility] Address: [address] [place] [address] Performed By: #### 48644-1 # ###[facility] LABORATORYCLIA [id number] [facility], [address] [place] MCV (RBC) [Entitic vol] 94.3 fL Normal 80.0-100.0 [facility] Comment on above: Order Comment: Specimen Type : BLOOD SPECIMENOrdering Facility: [facility] Address: [address] [place] [address] Performed By: #### 52992-6 # ###[facility] LABORATORYCLIA [id number] [facility], [address] [place] Nucleated RBC (Bld) [#/Vol] 0.02 10*3/uL High <0.01 [facility] Comment on above: Order Comment: Specimen Type : BLOOD SPECIMENOrdering Facility: [facility] Address: [address] [place] [address] Performed By: #### 80933-1 # ###[facility] LABORATORYCLIA [id number] [facility], [address] [place] Platelet mean volume (Bld) 9.4 fL Normal 9.0-12.7 [facility] [Entitic vol] Comment on above: Order Comment: Specimen Type : BLOOD SPECIMENOrdering Facility: [facility] Address: [address] [place] [address] Performed By: #### 93139-7 # ###[facility] LABORATORYCLIA [id number] [facility] [place] Platelets (Bld) [#/Vol] 359 10*3/uL Normal 150-400 [facility] Comment on above: Order Comment: Specimen Type : BLOOD SPECIMENOrdering Facility: [facility] Address: [address] [place] [address] [place] [address] Performed By: #### 82352-0 # ###[facility] LABORATORYCLIA [id number] [facility], [facility] [place] RBC (Bld) [#/Vol] 3.16 10*6/uL Low 3.90-5.20 [facility] Comment on above: Order Comment: Specimen Type : BLOOD SPECIMENOrdering Facility: [facility] Address: [address] [place] [place] [address] Performed By: #### 90274-3 # ###[facility] LABORATORYCLIA [id number] [place] [id number] [facility] WBC (Bld) [#/Vol] 16.86 10*3/uL High 3.70-11.00 [facility] Comment on above: Order Comment: Specimen Type : BLOOD SPECIMENOrdering Facility: [facility] Address: [address] [place] [address] Performed By: #### 44986-6 # ###[facility] LABORATORYCLIA [id number] [address] OF [facility] CONSULT PROG on 12-28-2022 CONSULT PROG Normal [facility] [place] [facility] Calcium.ionized [Moles/Vol] on 12-28-19 23 Calcium.ionized (BldV) [Mass/Vol] 0.99 mmol/L Low 1.08-1. 30 [facility] Comment on above: Order Comment: Specimen Type : BLOOD SPECIMENOrdering Facility: [facility] Address: [address] [place] [address] Performed By: #### 1995-0 ## ##[facility] LABORATORYCLIA [id number] [address] OF [place] Calcium.ionized adjusted to pH 7.4 1.07 mmol/L Low 1.08-1 .30 [facility] (d) [Moles/Vol] Center Comment on above: Order Comment: Specimen Type : BLOOD SPECIMENOrdering Facility: [facility] Address: [address] [place] [address] Performed By: #### 1995-0 ## ##[facility] LABORATORYCLIA [id number] [place] [address] [facility] Magnesium SerPl-mCnc on 12-28-2022 Magnesium [Mass/Vol] 1.5 mg/dL Low 1.7-2.3 [facility] Comment on above: Order Comment: Specimen Type : BLOOD SPECIMENOrdering Facility: [facility] Address: [address] [place] [address] Performed By: #### 76295-0 # ###[facility] LABORATORYCLIA [id number] [address] [place] NURSING PROG on 12-28-2022 NURSING PROG Normal [facility] Phosphate SerPl-mCnc on 12-28-2022 Phosphate [Mass/Vol] 3.7 mg/dL Normal 2.7-4.8 [facility] Comment on above: Order Comment: Specimen Type : BLOOD SPECIMENOrdering Facility: [facility] Address: [address] [place] [address] Performed By: #### 26276-2, 2777-1 ####[facility] LABORATORYCLIA [id number] [address] [place] Prealbumin [Mass/Vol] on 12-28-2022 Prealbumin Nephelometry [Mass/Vol] 10 mg/dL Low 17-36 [facility] Comment on above: Order Comment: Specimen Type : BLOOD SPECIMENOrdering Facility: [facility] Address: [address] [place] [address] Performed By: #### 54224-6 # ###[facility] LABORATORYCLIA [id number] [address] [place] Vancomycin random [Mass/Vol] on 023 Vancomycin [Mass/Vol] 10.3 ug/mL Normal 10.0-20.0 [facility] Comment on above: Order Comment: Specimen Type : BLOOD SPECIMENOrdering Facility: [facility] Address: [address] [address] Result Comment: Reference ra nges and high/low indicator flags are provided as general guidelin es only. The treating physician must determine appropriate target levels/dosing based on the specific clinical situation. Performed By: #### 4091-5 ## ##[facility] LABORATORYCLIA [id number] [facility] [address] [place] XR CHEST 1V FRONTAL on 12-28-2022 XR CHEST 1V FRONTAL Normal [facility] ALLIED HEALTH on 12-27-2022 ALLIED HEALTH Normal [facility] ALLIED HEALTH Normal [facility] ANES POSTPROC EVAL on 12-27-2022 ANES POSTPROC EVAL Normal [facility] ARTERIAL BLOOD GASES on 12-27-2022 Base excess Calc (Bld) [Moles/Vol] 3 mmol/L High 0-2 [facility] Comment on above: Order Comment: Specimen Type : ARTERIAL BLOOD SPECIMENOrdering Facility: [facility] Address: [address] [place] [place] [address] Performed By: #### ALLBG ### #[facility] LABORATORYCLIA [id number] [facility], [place] [address] [place] Body temperature 100.76 [degF] Normal [facility] Comment on above: Order Comment: Specimen Type : ARTERIAL BLOOD SPECIMENOrdering Facility: [facility] Address: [address] [place] [place] [address] Performed By: #### ALLBG ### #[facility] LABORATORYCLIA [id number] [place] [address] [place] Calcium.ionized (BldV) 1.16 mmol/L Normal 1.08-1.30 [facility] [Mass/Vol] Center Comment on above: Order Comment: Specimen Type : ARTERIAL BLOOD SPECIMENOrdering Facility: [facility] Address: [address] [place] [place] [address] Performed By: #### ALLBG ### #[facility]ORATORYCLIA [id number] [address] Calcium.ionized adjusted to pH 1.16 mmol/L Normal 1.08-1.30 [facility] 7.4 (BldA) [Moles/Vol] Genoveva burciaga Comment on above: Order Comment: Specimen Type : ARTERIAL BLOOD SPECIMENOrdering Facility: [facility] Address: [address] [place] [address] Performed By: #### ALLBG ### #[facility]ORATORYCLIA [id number] [address] OF [facility] Carboxyhemoglobin (BldA) [Mass 1.5 % Normal 0.0-2.0 [facility]] Center Comment on above: Order Comment: Specimen Type : ARTERIAL BLOOD SPECIMENOrdering Facility: [facility] Address: [address] [place] [address] Result Comment: Carboxyhemog lobin Reference Range for Smokers: 2.0-8.0% Performed By: #### ALLBG ### #[facility]ORATORYCLIA [id number] [address] OF [facility] Chloride [Moles/Vol] 104 mmol/L Normal 102-109 [facility] Comment on above: Order Comment: Specimen Type : ARTERIAL BLOOD SPECIMENOrdering Facility: [facility] Address: [address] [place] [address] Performed By: #### ALLBG ### #[facility]ORATORYCLIA [id number] [address] OF [place] CO2 (Bld) [Partial pressure] 48 mm Hg High 36-46 [facility] Comment on above: Order Comment: Specimen Type : ARTERIAL BLOOD SPECIMENOrdering Facility: [facility] [facility] Address: [address] [place] [address] Performed By: #### ALLBG ### #[facility] LABORATORYCLIA [id number] [address] [place] CO2 [Moles/Vol] 27 mmol/L Normal 22-28 [facility] Comment on above: Order Comment: Specimen Type : ARTERIAL BLOOD SPECIMENOrdering Facility: [facility] Address: [address] [address] Performed By: #### ALLBG ### #[facility]ORATORYCLIA [id number] [facility] [place], [facility] CO2 adjusted to patient's actual 51 mmHg High 36-46 [facility] temperature (Bld) [Partial pressure] Comment on above: Order Comment: Specimen Type : ARTERIAL BLOOD SPECIMENOrdering Facility: [facility] Address: [address] [address] Performed By: #### ALLBG ### #[facility] LABORATORYCLIA [id number] [facility], [address] [place] Glucose [Mass/Vol] 267 mg/dL High 60-105 [facility] Comment on above: Order Comment: Specimen Type : ARTERIAL BLOOD SPECIMENOrdering Facility: [facility] Address: [address] [address] Performed By: #### ALLBG ### #[facility]ORATORYCLIA [id number] [facility] [place], [address] HCO3 (Bld) [Moles/Vol] 28 mmol/L High 22-26 [facility] Comment on above: Order Comment: Specimen Type : ARTERIAL BLOOD SPECIMENOrdering Facility: [facility] Address: [address] [address] Performed By: #### ALLBG ### #[facility] LABORATORYCLIA [id number] [facility] [place], [address] [place] Hematocrit (Bld) [Volume fraction] 29.4 % Low 36.0-4 6.0 [facility] Comment on above: Order Comment: Specimen Type : ARTERIAL BLOOD SPECIMENOrdering Facility: [facility] Address: [address] [address] Performed By: #### ALLBG ### #[facility] LABORATORYCLIA [id number] [place] [address] [place] Hemoglobin (Bld) [Mass/Vol] 9.5 g/dL Low 11.5-15.5 [facility] Comment on above: Order Comment: Specimen Type : ARTERIAL BLOOD SPECIMENOrdering Facility: [facility] Address: [address] [address] Performed By: #### ALLBG ### #[facility] LABORATORYCLIA [id number] [facility] [place] [id number] [facility] OF [place] Lactate [Moles/Vol] 1.2 mmol/L Normal 0.5-2.2 [facility] Comment on above: Order Comment: Specimen Type : ARTERIAL BLOOD SPECIMENOrdering Facility: [facility] Address: [address] [place] [address] Performed By: #### ALLBG ### #[facility] LABORATORYCLIA [id number] [place] [address] [place] Methemoglobin (Bld) [Mass fraction] 1.2 % Normal 0.0-1 .5 [facility] Comment on above: Order Comment: Specimen Type : ARTERIAL BLOOD SPECIMENOrdering Facility: [facility] Address: [address] [address] Performed By: #### ALLBG ### #[facility] LABORATORYCLIA [id number] [facility], [address] [place] O2 THERAPY Ventilator Normal [facility] Comment on above: Order Comment: Specimen Type : ARTERIAL BLOOD SPECIMENOrdering Facility: [facility] Address: [address] [address] Performed By: #### ALLBG ### #[facility] LABORATORYCLIA [id number] [facility], [address] [place] Oxygen (Bld) [Partial pressure] 93 mm Hg Normal 85-95 [facility] Comment on above: Order Comment: Specimen Type : ARTERIAL BLOOD SPECIMENOrdering Facility: [facility] Address: [address] [address] Performed By: #### ALLBG ### #[facility]ORATORYCLIA [id number] [place] [address] [facility] OF [place] Oxygen adjusted to patient's actual 100 mmHg High 85-95 [facility] temperature (Bld) [Partial pressure] Comment on above: Order Comment: Specimen Type : ARTERIAL BLOOD SPECIMENOrdering Facility: [facility] Address: [address] [place] [address] Performed By: #### ALLBG ### #[facility] LABORATORYCLIA [id number] [place] [address] [facility] Oxyhemoglobin (BldA) [Mass fraction] 94 % Low 95-9 8 [facility] Comment on above: Order Comment: Specimen Type : ARTERIAL BLOOD SPECIMENOrdering Facility: [facility] Address: [address] [place] [address] Performed By: #### ALLBG ### #[facility] LABORATORYCLIA [id number] [facility] [place], [facility] pH (Bld) 7.39 [pH] Normal 7.35-7.45 [facility] Comment on above: Order Comment: Specimen Type : ARTERIAL BLOOD SPECIMENOrdering Facility: [facility] Address: [address] [place] [address] Performed By: #### ALLBG ### #[facility]ORATORYCLIA [id number] [place] [address] [facility] pH adjusted to patient's actual 7.37 Normal 7.35-7.45 [facility] temperature (Bld) Comment on above: Order Comment: Specimen Type : ARTERIAL BLOOD SPECIMENOrdering Facility: [facility] Address: [address] [place] [address] Performed By: #### ALLBG ### #[facility]ORATORYCLIA [id number] [place] [address] [facility] OF [place] Potassium [Moles/Vol] 4.5 mmol/L Normal 3.5-5.0 [facility] Comment on above: Order Comment: Specimen Type : ARTERIAL BLOOD SPECIMENOrdering Facility: [facility] Address: [address] [address] Performed By: #### ALLBG ### #[facility] LABORATORYCLIA [id number] [place] [address] [place] [facility] Sodium [Moles/Vol] 136 mmol/L Normal 136-144 [facility] Comment on above: Order Comment: Specimen Type : ARTERIAL BLOOD SPECIMENOrdering Facility: [facility] Address: [address] [address] Performed By: #### ALLBG ### #[facility] LABORATORYCLIA [id number] [place] [address] [place] OF [facility] Basic metabolic 2000 panel on 3 Anion gap [Moles/Vol] 10 mmol/L Normal 9-18 [facility] Comment on above: Order Comment: Specimen Type : BLOOD SPECIMENOrdering Facility: [facility] Address: [address] [address] Performed By: #### 41097-8, 1988-03, 2776-12, ####[facility] LABORATORYCLIA [id number] [place] [address] [facility] [place] Calcium [Mass/Vol] 8.9 mg/dL Normal 8.5-10.2 [facility] Comment on above: Order Comment: Specimen Type : BLOOD SPECIMENOrdering Facility: [facility] Address: [address] Performed By: #### 41283-5, 1988-03, 2776-12, ####[facility] LABORATORYCLIA 36D03 [id number] [place] [address] [place] Chloride [Moles/Vol] 98 mmol/L Normal 97-105 [facility] Comment on above: Order Comment: Specimen Type : BLOOD SPECIMENOrdering Facility: [facility] Address: [address] [address] Performed By: #### 71454-2, 1988-03, 2777 ####[facility] LABORATORYCLIA 36D03 [id number] [place] [address] [place] CO2 [Moles/Vol] 28 mmol/L Normal 22-30 [facility] Comment on above: Order Comment: Specimen Type : BLOOD SPECIMENOrdering Facility: [facility] Address: [address] [place] [address] Performed By: #### 25657-1, 1988-03, 2776-12, ####[facility]OSPITAL[facility] 36D03 [id number] [place] [address] [facility] Creatinine [Mass/Vol] 0.91 mg/dL Normal 0.58-0.96 [facility] Comment on above: Order Comment: Specimen Type : BLOOD SPECIMENOrdering Facility: [facility] Address: [address] [place] [address] Performed By: #### 69249-4, 1988-03, 2776-12, ####[facility] HOSPITALIA 36D03 [id number] [place] [address] [place] ESTIMATED GLOMERULAR 79 mL/min/1.73m??? Normal >=60 A [facility] Comment on above: Order Comment: Specimen Type : BLOOD SPECIMENOrdering Facility: [facility] Address: [address] [place] [address] Result Comment: Estimated Gl omerular Filtration Rate [...] accurately reflect actual GFR. Performed By: #### 95372-1, 1988-03, 2776-12, ####[facility] LABORATORYIA 36D03 [id number] [place] [address] [place] Glucose [Mass/Vol] 190 mg/dL High 74-99 [facility] Comment on above: Order Comment: Specimen Type : BLOOD SPECIMENOrdering Facility: [facility] Address: [address] [place] [address] Result Comment: The Prydeinig Diabetes Association (ADA) provides guidance for cutoff [...] Standards of Medical Care in Diabetes 2016, [facility] Diabetes Association. Diabetes Care. 2016.39(Suppl 1). Performed By: #### 97040-9, 1988-03, 2776-12, ####[facility] LABORATORYCLIA 36D03 [id number] [place] [address] [place] Potassium [Moles/Vol] 4.5 mmol/L Normal 3.7-5.1 [facility] Comment on above: Order Comment: Specimen Type : BLOOD SPECIMENOrdering Facility: [facility] Address: [address] [address] Performed By: #### 95749-4, 1988-03, 2776-12, ####[facility] LABORATORYCLIA 36D03 [id number] [place] [address] [place] Sodium [Moles/Vol] 136 mmol/L Normal 136-144 [facility] Comment on above: Order Comment: Specimen Type : BLOOD SPECIMENOrdering Facility: [facility] Address: [address] [address] Performed By: #### 00869-7, 1988-03, 2776-12, ####[facility] LABORATORYCLIA 36D03 [id number] [place] [address] [place] Urea nitrogen [Mass/Vol] 12 mg/dL Normal 7-21 [facility] Comment on above: Order Comment: Specimen Type : BLOOD SPECIMENOrdering Facility: [facility] Address: [address] [address] Performed By: #### 58473-4, 1987-5, 2777-1, 25969-3 ####[facility] LABORATORYCLIA 36D03 [id number] [place] [address] [facility] CBC panel Auto (Bld) on 12-27-2022 Erythrocyte distribution width 16.2 % High 11.5-15.0 [facility] (RBC) [Ratio] Comment on above: Order Comment: Specimen Type : BLOOD SPECIMENOrdering Facility: [facility] Address: [address] [place] [address] Performed By: #### 19134-1 # ###[facility] LABORATORYCLIA [id number] [address] STATES OF [facility] Hematocrit (Bld) [Volume fraction] 28.4 % Low 36.0-4 6.0 [facility] Comment on above: Order Comment: Specimen Type : BLOOD SPECIMENOrdering Facility: [facility] Address: [address] [place] [address] Performed By: #### 77292-0 # ###[facility] LABORATORYCLIA [id number] [address] [id number] [place] [facility] Hemoglobin (Bld) [Mass/Vol] 8.5 g/dL Low 11.5-15.5 [facility] Comment on above: Order Comment: Specimen Type : BLOOD SPECIMENOrdering Facility: [facility] Address: [address] [place] [address] Performed By: #### 48347-2 # ###[facility] LABORATORYCLIA [id number] [address] STATES [place] MCH (RBC) [Entitic mass] 28.1 pg Normal 26.0-34.0 [facility] Comment on above: Order Comment: Specimen Type : BLOOD SPECIMENOrdering Facility: [facility] Address: [address] [address] Performed By: #### 83752-8 # ###[facility] LABORATORYCLIA [id number] [address] [place] MCHC (RBC) [Mass/Vol] 29.9 g/dL Low 30.5-36.0 [facility] Comment on above: Order Comment: Specimen Type : BLOOD SPECIMENOrdering Facility: [facility] Address: [address] [address] Performed By: #### 71351-5 # ###[facility] LABORATORYCLIA [id number] [address] MCV (RBC) [Entitic vol] 93.7 fL Normal 80.0-100.0 [facility] Comment on above: Order Comment: Specimen Type : BLOOD SPECIMENOrdering Facility: [facility] Address: [address] [address] Performed By: #### 74363-0 # ###[facility] LABORATORYCLIA [id number] [address] Nucleated RBC (Bld) [#/Vol] 10*3/uL Normal <0.01 [facility] Comment on above: Order Comment: Specimen Type : BLOOD SPECIMENOrdering Facility: [facility] Address: [address] [address] Performed By: #### 20951-5 # ###[facility] LABORATORYCLIA [id number] [facility], [address] Platelet mean volume (Bld) 9.4 fL Normal 9.0-12.7 [facility] [Entitic vol] Comment on above: Order Comment: Specimen Type : BLOOD SPECIMENOrdering Facility: [facility] Address: [address] [address] Performed By: #### 72913-2 # ###[facility] LABORATORYCLIA [id number] [place] [address] [place] Platelets (Bld) [#/Vol] 333 10*3/uL Normal 150-400 [facility] Comment on above: Order Comment: Specimen Type : BLOOD SPECIMENOrdering Facility: [facility] Address: [address] [address] Performed By: #### 14373-4 # ###[facility] LABORATORYCLIA [id number] [place] [address] [place] RBC (Bld) [#/Vol] 3.03 10*6/uL Low 3.90-5.20 [facility] Comment on above: Order Comment: Specimen Type : BLOOD SPECIMENOrdering Facility: [facility] Address: [address] [address] Performed By: #### 54150-4 # ###[facility] LABORATORYCLIA [id number] [place] [address] [place] WBC (Bld) [#/Vol] 16.79 10*3/uL High 3.70-11.00 [facility] Comment on above: Order Comment: Specimen Type : BLOOD SPECIMENOrdering Facility: [facility] Address: [address] [address] Performed By: #### 68445-2 # ###[facility] LABORATORYCLIA [id number] [place] [address] [place] CONSULT PROG on 12-27-2022 CONSULT PROG Normal [facility] CRP SerPl-mCnc on 12-27-2022 CRP [Mass/Vol] 12.9 mg/dL High <0.9 [facility] Comment on above: Order Comment: Specimen Type : BLOOD SPECIMENOrdering Facility: [facility] Address: [address] [address] Performed By: #### 57382-1, 1987-, 2777-1, 79057-5 ####[facility] LABORATORYCLIA 36D03 [id number] [place] [address] [place] Calcium.ionized [Moles/Vol] on 12-27-19 23 Calcium.ionized (BldV) [Mass/Vol] 1.06 mmol/L Low 1.08-1. 30 [facility] Comment on above: Order Comment: Specimen Type : BLOOD SPECIMENOrdering Facility: [facility] Address: [address] Performed By: #### 1994- ## ##[facility] LABORATORYCLIA [id number] [place] [address] [place] Calcium.ionized adjusted to pH 1.11 mmol/L Normal 1.08-1.30 [facility] 7.4 (Bld) [Moles/Vol] Center Comment on above: Order Comment: Specimen Type : BLOOD SPECIMENOrdering Facility: [facility] Address: [address] [address] Performed By: #### ## ##[facility] LABORATORYCLIA [id number] [place] [address] [place] Magnesium SerPl-mCnc on 12-27-2022 Magnesium [Mass/Vol] 1.7 mg/dL Normal 1.7-2.3 [facility] Comment on above: Order Comment: Specimen Type : BLOOD SPECIMENOrdering Facility: [facility] Address: [address] [address] Performed By: #### 32134-7, 1988-03, 2776-12, ####[facility] LABORATORYCLIA 36D03 [id number] [place] [address] [facility] [place] Phosphate SerPl-mCnc on 12-27-2022 Phosphate [Mass/Vol] 4.4 mg/dL Normal 2.7-4.8 [facility] Comment on above: Order Comment: Specimen Type : BLOOD SPECIMENOrdering Facility: [facility] Address: [address] [address] Performed By: #### 82603-6, 1988-03, 2776-12, ####[facility] LABORATORYCLIA 36D03 [id number] [place] [address] [facility] OF [place] XR CHEST 1V FRONTAL on 12-27-2022 XR CHEST 1V FRONTAL Normal [facility] ALLIED HEALTH on 12-26-2022 ALLIED HEALTH Normal [facility] ALLIED HEALTH Normal [facility] ANES PRE-OP on 12-26-2022 ANES PRE-OP Normal [facility] Basic metabolic 2000 panel on 3 Anion gap [Moles/Vol] 10 mmol/L Normal 9-18 [facility] Comment on above: Order Comment: Specimen Type : BLOOD SPECIMENOrdering Facility: [facility] Address: [address] [address] Performed By: #### 30793-2, 257-8, 51606-4, 2776- ####[facility] LABORATORYCLIA 36D03 [id number] [place] [id number] [place] Calcium [Mass/Vol] 9.1 mg/dL Normal 8.5-10.2 [facility] Comment on above: Order Comment: Specimen Type : BLOOD SPECIMENOrdering Facility: [facility] Address: [address] [address] Performed By: #### 56835-6, 257-8, 44512-3, 2776- ####[facility] LABORATORYCLIA 36D03 [id number] [place] [address] [place] Chloride [Moles/Vol] 101 mmol/L Normal 97-105 [facility] Comment on above: Order Comment: Specimen Type : BLOOD SPECIMENOrdering Facility: [facility] Address: [address] [address] Performed By: #### 84311-3, 257-8, 43687-2, 2776-1 ####[facility] LABORATORYCLIA 36D03 [id number] [place] [address] [place] CO2 [Moles/Vol] 26 mmol/L Normal 22-30 [facility] Comment on above: Order Comment: Specimen Type : BLOOD SPECIMENOrdering Facility: [facility] Address: [address] [address] Performed By: #### 84875-9, 2571-8, 04574-1, 2776- ####[facility] INSTITUTECLIA 36D03 [id number] [place] [address] [facility] Creatinine [Mass/Vol] 1.14 mg/dL High 0.58-0.96 [facility] Comment on above: Order Comment: Specimen Type : BLOOD SPECIMENOrdering Facility: [facility] Address: [address] [place] [address] Performed By: #### 35248-9, 257-8, 39651-2, 2776-12 ####[facility]ITALIA 36D03 [id number] [place] [address] [facility] ESTIMATED GLOMERULAR 61 mL/min/1.73m??? Normal >=60 A [facility] FILTR[facility] RATE Center Comment on above: Order Comment: Specimen Type : BLOOD SPECIMENOrdering Facility: [facility] Address: [address] [place] [address] Result Comment: Estimated Gl omerular Filtration Rate [...] accurately reflect actual GFR. Performed By: #### 80012-4, 257-8, 71860-2, 2776-12 ####[facility] LABORATORYCLIA [id number] [place] [address] [facility] Glucose [Mass/Vol] 246 mg/dL High 74-99 [facility] Comment on above: Order Comment: Specimen Type : BLOOD SPECIMENOrdering Facility: [facility] Address: [address] [place] [address] Result Comment: The Prydeinig Diabetes Association (ADA) provides guidance for cutoff [...] Standards of Medical Care in Diabetes 2016, [facility] Diabetes Association. Diabetes Care. 2016.39(Suppl 1). Performed By: #### 09696-5, 2570-8, , 2776-12 ####[facility] LABORATORYCLIA 36D03 [id number] [place] [address] [place] Potassium [Moles/Vol] 4.4 mmol/L Normal 3.7-5.1 [facility] Comment on above: Order Comment: Specimen Type : BLOOD SPECIMENOrdering Facility: [facility] Address: [address] [place] [address] Performed By: #### 97439-5, 8, , 2776-12 ####[facility] INSTITUTECLIA 36D03 [id number] [place] [address] [place] Sodium [Moles/Vol] 137 mmol/L Normal 136-144 [facility] Comment on above: Order Comment: Specimen Type : BLOOD SPECIMENOrdering Facility: [facility] Address: [address] [place] [address] Performed By: #### 47520-8, 8, , 2776-12 ####[facility] LABORATORYCLIA 36D03 [id number] [place] [address] [facility] [place] Urea nitrogen [Mass/Vol] 20 mg/dL Normal 7-21 [facility] Comment on above: Order Comment: Specimen Type : BLOOD SPECIMENOrdering Facility: [facility] Address: [address] [place] [address] Performed By: #### 98040-3, 2570-8, , 2776- ####[facility] LABORATORYCLIA [id number] [place] CASE MGT INIT ASSES on 12-26-2022 CASE MGT INIT ASSES Normal [facility] CBC panel Auto (Bld) on 12-26-2022 Erythrocyte distribution width 16.4 % High 11.5-15.0 [facility] (RBC) [Ratio] Comment on above: Order Comment: Specimen Type : BLOOD SPECIMENOrdering Facility: [facility] Address: [address] [address] Performed By: #### 66987-1 # ###[facility] LABORATORYCLIA [id number] [address] OF [facility] Hematocrit (Bld) [Volume fraction] 29.4 % Low 36.0-4 6.0 [facility] Comment on above: Order Comment: Specimen Type : BLOOD SPECIMENOrdering Facility: [facility] Address: [address] [place] [address] Performed By: #### 76235-1 # ###[facility] LABORATORYCLIA [id number] [address] STATES OF [facility] Hemoglobin (Bld) [Mass/Vol] 8.8 g/dL Low 11.5-15.5 [facility] Comment on above: Order Comment: Specimen Type : BLOOD SPECIMENOrdering Facility: [facility] Address: [address] [place] [address] Performed By: #### 72040-3 # ###[facility] LABORATORYCLIA [id number] [address] [place] MCH (RBC) [Entitic mass] 28.7 pg Normal 26.0-34.0 [facility] Comment on above: Order Comment: Specimen Type : BLOOD SPECIMENOrdering Facility: [facility] Address: [address] [place] [address] Performed By: #### 50388-2 # ###[facility] LABORATORYCLIA [id number] [address] [place] MCHC (RBC) [Mass/Vol] 29.9 g/dL Low 30.5-36.0 [facility] Comment on above: Order Comment: Specimen Type : BLOOD SPECIMENOrdering Facility: [facility] Address: [address] [address] Performed By: #### 12428-0 # ###[facility] LABORATORYCLIA [id number] [facility], [address] [place] MCV (RBC) [Entitic vol] 95.8 fL Normal 80.0-100.0 [facility] Comment on above: Order Comment: Specimen Type : BLOOD SPECIMENOrdering Facility: [facility] Address: [address] [address] Performed By: #### 87634-4 # ###[facility] LABORATORYCLIA [id number] [address] [place] Nucleated RBC (Bld) [#/Vol] 10*3/uL Normal <0.01 [facility] Comment on above: Order Comment: Specimen Type : BLOOD SPECIMENOrdering Facility: [facility] Address: [address] [address] Performed By: #### 10633-5 # ###[facility] LABORATORYCLIA [id number] [address] [place] Platelet mean volume (Bld) 9.4 fL Normal 9.0-12.7 [facility] [Entitic vol] Comment on above: Order Comment: Specimen Type : BLOOD SPECIMENOrdering Facility: [facility] Address: [address] Performed By: #### 38320-7 # ###[facility] LABORATORYCLIA [id number] [address] [place] Platelets (Bld) [#/Vol] 304 10*3/uL Normal 150-400 [facility] Comment on above: Order Comment: Specimen Type : BLOOD SPECIMENOrdering Facility: [facility] Address: [address] [address] Performed By: #### 47137-1 # ###[facility] LABORATORYCLIA [id number] [place] [address] [place] RBC (Bld) [#/Vol] 3.07 10*6/uL Low 3.90-5.20 [facility] Comment on above: Order Comment: Specimen Type : BLOOD SPECIMENOrdering Facility: [facility] Address: [address] [phone] Performed By: #### 67262-2 # ###[facility] LABORATORYCLIA [id number] [place] [address] [place] WBC (Bld) [#/Vol] 17.12 10*3/uL High 3.70-11.00 [facility] Comment on above: Order Comment: Specimen Type : BLOOD SPECIMENOrdering Facility: [facility] Address: [address] [phone] Performed By: #### 21671-7 # ###[facility]STITUTECLIA [id number] [facility], [address] [place] CNPN on 12-26-2022 CNPN Normal [facility] CONSULT PROG on 12-26-2022 CONSULT PROG Normal [facility] Calcium.ionized [Moles/Vol] on 023 Calcium.ionized (BldV) 1.22 mmol/L Normal 1.08-1.30 [facility] [Mass/Vol] Center Comment on above: Order Comment: Specimen Type : BLOOD SPECIMENOrdering Facility: [facility] Address: [address] [phone] Performed By: #### 1995-0 ## ##[facility] LABORATORYCLIA [id number] [facility], [address] Calcium.ionized adjusted to pH 1.21 mmol/L Normal 1.08-1.30 [facility] 7.4 (Bld) [Moles/Vol] Center Comment on above: Order Comment: Specimen Type : BLOOD SPECIMENOrdering Facility: [facility] Address: [address] [address] Performed By: #### 1995-0 ## ##[facility] [id number] [address] HCG ( test) Ql (U) on 12-26-19 23 Specific gravity (U) [Rel 1.020 Normal 1.006-1.029 [facility] density] Comment on above: Order Comment: Specimen Type : URINE SPECIMENOrdering Facility: [facility] Address: [address] [address] Result Comment: If specific gravity is <1.005 then results may be falsely negative. Serum HCG is recommended. Performed By: #### 2106-3 ## ##[facility]ITALIA [id number] [address] HCG Preg Ur Ql on 12-26-2022 HCG ( test) Ql (U) Negative Normal Negative [facility] Comment on above: Order Comment: Specimen Type : URINE SPECIMENOrdering Facility: [facility] Address: [address] [address] Result Comment: This test is intended to aid in the early detection of . Very dilute ur ine samples, as indicated by a low specific gravity, may not co ntain major account representative levels of hCG. This test detects [...] By: #### 2106-3 ## ##[facility]ITALIA [id number] [address] [place] Magnesium SerPl-mCnc on 12-26-2022 Magnesium [Mass/Vol] 1.4 mg/dL Low 1.7-2.3 [facility] Comment on above: Order Comment: Specimen Type : BLOOD SPECIMENOrdering Facility: [facility] Address: [address] [place] [address] Performed By: #### 51166-9, 2570-8, , 2776-12 ####[facility] LABORATORYCLIA [id number] [place] [address] [facility] OPERATIVE NO on 12-26-2022 OPERATIVE NO Normal [facility] Phosphate SerPl-mCnc on 12-26-2022 Phosphate [Mass/Vol] 3.0 mg/dL Normal 2.7-4.8 [facility] Comment on above: Order Comment: Specimen Type : BLOOD SPECIMENOrdering Facility: [facility] Address: [address] [place] [address] Performed By: #### 60761-4, 8, , 2776-12 ####[facility] LABORATORYCLIA [id number] [id number] [facility] Trigl SerPl-mCnc on 12-26-2022 Triglyceride [Mass/Vol] 198 mg/dL High <150 [facility] Comment on above: Order Comment: Specimen Type : BLOOD SPECIMENOrdering Facility: [facility] Address: [address] [place] [address] Result Comment: <150 mg/dL, Normal 150-199 mg/dL, Borderline high 200-499 mg/dL, High>499 mg/d L, Very highReference:1. National Cholesterol Education Progra m ATP III Guideline At-A-Glance Quick Desk Reference: National a rt, Lung, and Blood [place]. National Institutes of Health. 2001: NIH Publication No. 01-3305. Performed By: #### 95776-7, 2570-8, 78664-8, 2776-12 ####[facility] LABORATORYCLIA [id number] [place] [address] [facility] [place] Triglyceride [Mass/Vol] on 12-26-2022 FASTING TIME 0 hrs Normal [facility] Comment on above: Order Comment: Specimen Type : BLOOD SPECIMENOrdering Facility: [facility] Address: [address] [address] Result Comment: impact 1.5 t ube feed continuous Performed By: #### 44631-1, 2571-8, 22378-1, 2777-1 ####[facility] LABORATORYCLIA [id number] [place] XR CHEST 1V FRONTAL on 12-26-2022 XR CHEST 1V FRONTAL Normal [facility] ALLIED HEALTH on 12-25-2022 ALLIED HEALTH Normal [facility] ALLIED HEALTH Normal [facility] ANES POSTPROC EVAL on 12-25-2022 ANES POSTPROC EVAL Normal [facility] ANES PRE-OP on 12-25-2022 ANES PRE-OP Normal [facility] ARTERIAL BLOOD GASES on 12-25-2022 Base excess Calc (Bld) [Moles/Vol] 0 mmol/L Normal 0-2 [facility] Comment on above: Order Comment: Specimen Type : ARTERIAL BLOOD SPECIMENOrdering Facility: [facility] Address: [address] [address] Performed By: #### ALLBG ### #[facility] LABORATORYCLIA [id number] [place] [address] [place] Body temperature 98.96 [degF] Normal [facility] Comment on above: Order Comment: Specimen Type : ARTERIAL BLOOD SPECIMENOrdering Facility: [facility] Address: [address] [address] Performed By: #### ALLBG ### #[facility] LABORATORYCLIA [id number] [place] [address] [place] Calcium.ionized (BldV) 1.18 mmol/L Normal 1.08-1.30 [facility] [Mass/Vol] [place] Comment on above: Order Comment: Specimen Type : ARTERIAL BLOOD SPECIMENOrdering Facility: [facility] Address: [address] [address] Performed By: #### ALLBG ### #[facility]ORATORYCLIA [id number] [place], [place] [id number] [place] [address] [place] Calcium.ionized adjusted to pH 1.15 mmol/L Normal 1.08-1.30 [facility] 7.4 (BldA) [Moles/Vol] Genoveva burciaga Comment on above: Order Comment: Specimen Type : ARTERIAL BLOOD SPECIMENOrdering Facility: [facility] Address: [address] [place] [address] Performed By: #### ALLBG ### #[facility]ORATORYCLIA [id number] [address] [place] Carboxyhemoglobin (BldA) [Mass <1.0 Normal 0.0-2.0 [facility]] Center Comment on above: Order Comment: Specimen Type : ARTERIAL BLOOD SPECIMENOrdering Facility: [facility] Address: [address] [place] [address] Result Comment: Carboxyhemog lobin Reference Range for Smokers: 2.0-8.0% Performed By: #### ALLBG ### #[facility] LABORATORYCLIA [id number] [address] [place] Chloride [Moles/Vol] 102 mmol/L Normal 102-109 [facility] Comment on above: Order Comment: Specimen Type : ARTERIAL BLOOD SPECIMENOrdering Facility: [facility] Address: [address] [address] Performed By: #### ALLBG ### #[facility] LABORATORYCLIA [id number] [address] [place] CO2 (Bld) [Partial pressure] 48 mm Hg High 36-46 [facility] Comment on above: Order Comment: Specimen Type : ARTERIAL BLOOD SPECIMENOrdering Facility: [facility] Address: [address] [address] Performed By: #### ALLBG ### #[facility] LABORATORYCLIA [id number] [address] [place] CO2 [Moles/Vol] 24 mmol/L Normal 22-28 [facility] Comment on above: Order Comment: Specimen Type : ARTERIAL BLOOD SPECIMENOrdering Facility: [facility] Address: [address] [place] [address] Performed By: #### ALLBG ### #[facility]ORATORYCLIA [id number] [place] [address] [facility] [place] CO2 adjusted to patient's actual 48 mmHg High 36-46 [facility] temperature (Bld) [Partial pressure] Comment on above: Order Comment: Specimen Type : ARTERIAL BLOOD SPECIMENOrdering Facility: [facility] Address: [address] [address] Performed By: #### ALLBG ### #[facility] LABORATORYCLIA [id number] [facility] [place] [address] [place] [address] [place] Glucose [Mass/Vol] 188 mg/dL High 60-105 [facility] Comment on above: Order Comment: Specimen Type : ARTERIAL BLOOD SPECIMENOrdering Facility: [facility] Address: [address] [address] Performed By: #### ALLBG ### #[facility] LABORATORYCLIA [id number] [facility] [id number] [place] [address] [place] HCO3 (Bld) [Moles/Vol] 26 mmol/L Normal 22-26 [facility] Comment on above: Order Comment: Specimen Type : ARTERIAL BLOOD SPECIMENOrdering Facility: [facility] Address: [address] [address] Performed By: #### ALLBG ### #[facility]ORATORYCLIA [id number] [place] [address] [place] Hematocrit (Bld) [Volume fraction] 28.1 % Low 36.0-4 6.0 [facility] Comment on above: Order Comment: Specimen Type : ARTERIAL BLOOD SPECIMENOrdering Facility: [facility] Address: [address] [address] Performed By: #### ALLBG ### #[facility]ORATORYCLIA [id number] [place] [address] [facility] [place] Hemoglobin (Bld) [Mass/Vol] 9.1 g/dL Low 11.5-15.5 [facility] Comment on above: Order Comment: Specimen Type : ARTERIAL BLOOD SPECIMENOrdering Facility: [facility] Address: [address] [place] [address] Performed By: #### ALLBG ### #[facility] LABORATORYCLIA [id number] [facility], [facility] [place] Lactate [Moles/Vol] 0.8 mmol/L Normal 0.5-2.2 [facility] Comment on above: Order Comment: Specimen Type : ARTERIAL BLOOD SPECIMENOrdering Facility: [facility] Address: [address] [place] [address] Performed By: #### ALLBG ### #[facility] LABORATORYCLIA [id number] [facility], [facility] [place] Methemoglobin (Bld) [Mass fraction] % Normal 0.0-1 .5 [facility] Comment on above: Order Comment: Specimen Type : ARTERIAL BLOOD SPECIMENOrdering Facility: [facility] Address: [address] [place] [address] Performed By: #### ALLBG ### #[facility] LABORATORYCLIA [id number] [facility], [facility] [place] O2 THERAPY Ventilator Normal [facility] Comment on above: Order Comment: Specimen Type : ARTERIAL BLOOD SPECIMENOrdering Facility: [facility] Address: [address] [address] Performed By: #### ALLBG ### #[facility] LABORATORYCLIA [id number] [facility], [facility] [place] Oxygen (Bld) [Partial pressure] 174 mm Hg High 85-95 [facility] Comment on above: Order Comment: Specimen Type : ARTERIAL BLOOD SPECIMENOrdering Facility: [facility] Address: [address] [address] Performed By: #### ALLBG ### #[facility]ORATORYCLIA [id number] [place] [address] [facility] Oxygen adjusted to patient's actual 175 mmHg High 85-95 [facility] temperature (Bld) [Partial pressure] Comment on above: Order Comment: Specimen Type : ARTERIAL BLOOD SPECIMENOrdering Facility: [facility] Address: [address] [place] [address] Performed By: #### ALLBG ### #[facility]ORATORYCLIA [id number] [facility] [place] [id number] [place] [address] Oxyhemoglobin (BldA) [Mass fraction] 96 % Normal 95-9 8 [facility] Comment on above: Order Comment: Specimen Type : ARTERIAL BLOOD SPECIMENOrdering Facility: [facility] Address: [address] [place] [address] Performed By: #### ALLBG ### #[facility]ORATORYCLIA [id number] [facility], [address] [place] pH (Bld) 7.35 [pH] Normal 7.35-7.45 [facility] Comment on above: Order Comment: Specimen Type : ARTERIAL BLOOD SPECIMENOrdering Facility: [facility] Address: [address] [place] [address] Performed By: #### ALLBG ### #[facility]ORATORYCLIA [id number] [facility] [address] [place] [address] pH adjusted to patient's actual 7.35 Normal 7.35-7.45 [facility] temperature (Bld) Comment on above: Order Comment: Specimen Type : ARTERIAL BLOOD SPECIMENOrdering Facility: [facility] Address: [address] [place] [address] Performed By: #### ALLBG ### #[facility]ORATORYCLIA [id number] [place] [address] [place] Potassium [Moles/Vol] 4.9 mmol/L Normal 3.5-5.0 [facility] Comment on above: Order Comment: Specimen Type : ARTERIAL BLOOD SPECIMENOrdering Facility: [facility] Address: [address] [address] Performed By: #### ALLBG ### #[facility]ORATORYCLIA [id number] [facility], [address] [place] Sodium [Moles/Vol] 137 mmol/L Normal 136-144 [facility] Comment on above: Order Comment: Specimen Type : ARTERIAL BLOOD SPECIMENOrdering Facility: [facility] Address: [address] [address] Performed By: #### ALLBG ### #[facility]ORATORYCLIA [id number] [address] [place] Base deficit (BldA) [Moles/Vol] -2 mmol/L Normal -2-0 [facility] Comment on above: Order Comment: Specimen Type : ARTERIAL BLOOD SPECIMENOrdering Facility: [facility] Address: [address] [address] Performed By: #### ALLBG ### #[facility] LABORATORYCLIA [id number] [address] [place] Body temperature 98.78 [degF] Normal [facility] Comment on above: Order Comment: Specimen Type : ARTERIAL BLOOD SPECIMENOrdering Facility: [facility] Address: [address] [address] Performed By: #### ALLBG ### #[facility]ORATORYCLIA [id number] [facility], [address] [place] Calcium.ionized (BldV) [Mass/Vol] 1.06 mmol/L Low 1.08-1. 30 [facility] Comment on above: Order Comment: Specimen Type : ARTERIAL BLOOD SPECIMENOrdering Facility: [facility] Address: [address] [address] Performed By: #### ALLBG ### #[facility]ORATORYCLIA [id number] [place] [address] OF [facility] Calcium.ionized adjusted to pH 7.4 1.01 mmol/L Low 1.08-1 .30 [facility] (dA) [Moles/Vol] [place] Comment on above: Order Comment: Specimen Type : ARTERIAL BLOOD SPECIMENOrdering Facility: [facility] Address: [address] [place] [address] Performed By: #### ALLBG ### #[facility] LABORATORYCLIA [id number] [address] [place] Carboxyhemoglobin (BldA) [Mass 2.2 % High 0.0-2.0 [facility] fraction] Comment on above: Order Comment: Specimen Type : ARTERIAL BLOOD SPECIMENOrdering Facility: [facility] Address: [address] [place] [address] Result Comment: Carboxyhemog lobin Reference Range for Smokers: 2.0-8.0% Performed By: #### ALLBG ### #[facility] LABORATORYCLIA [id number] [address] [place] Chloride [Moles/Vol] 110 mmol/L High 102-109 [facility] Comment on above: Order Comment: Specimen Type : ARTERIAL BLOOD SPECIMENOrdering Facility: [facility] Address: [address] [place] [address] Performed By: #### ALLBG ### #[facility] LABORATORYCLIA [id number] [address] [place] CO2 (Bld) [Partial pressure] 47 mm Hg High 36-46 [facility] Comment on above: Order Comment: Specimen Type : ARTERIAL BLOOD SPECIMENOrdering Facility: [facility] Address: [address] [place] [address] Performed By: #### ALLBG ### #[facility] LABORATORYCLIA [id number] [address] [place] CO2 [Moles/Vol] 22 mmol/L Normal 22-28 [facility] Comment on above: Order Comment: Specimen Type : ARTERIAL BLOOD SPECIMENOrdering Facility: [facility] Address: [address] [address] Performed By: #### ALLBG ### #[facility]ORATORYCLIA [id number] [place] [facility], [address] CO2 adjusted to patient's actual 47 mmHg High 36-46 [facility] temperature (Bld) [Partial pressure] Comment on above: Order Comment: Specimen Type : ARTERIAL BLOOD SPECIMENOrdering Facility: [facility] Address: [address] [address] Performed By: #### ALLBG ### #[facility]ORATORYCLIA [id number] [place] [address] [place] Glucose [Mass/Vol] 162 mg/dL High 60-105 [facility] Comment on above: Order Comment: Specimen Type : ARTERIAL BLOOD SPECIMENOrdering Facility: [facility] Address: [address] [address] Performed By: #### ALLBG ### #[facility]ORATORYCLIA [id number] [place] [facility], [address] HCO3 (Bld) [Moles/Vol] 23 mmol/L Normal 22-26 [facility] Comment on above: Order Comment: Specimen Type : ARTERIAL BLOOD SPECIMENOrdering Facility: [facility] Address: [address] [address] Performed By: #### ALLBG ### #[facility]ORATORYCLIA [id number] [facility], [address] OF [place] Hematocrit (Bld) [Volume fraction] 31.8 % Low 36.0-4 6.0 [facility] Comment on above: Order Comment: Specimen Type : ARTERIAL BLOOD SPECIMENOrdering Facility: [facility] Address: [address] [place] [address] Performed By: #### ALLBG ### #[facility]ORATORYCLIA [id number] [place] [address] [place] Hemoglobin (Bld) [Mass/Vol] 10.3 g/dL Low 11.5-15.5 [facility] Comment on above: Order Comment: Specimen Type : ARTERIAL BLOOD SPECIMENOrdering Facility: [facility] Address: [address] [address] Performed By: #### ALLBG ### #[facility]ORATORYCLIA [id number] [place] [address] [place] Lactate [Moles/Vol] 0.6 mmol/L Normal 0.5-2.2 [facility] Comment on above: Order Comment: Specimen Type : ARTERIAL BLOOD SPECIMENOrdering Facility: [facility] Address: [address] [address] Performed By: #### ALLBG ### #[facility] LABORATORYCLIA [id number] [facility], [address] [place] Methemoglobin (Bld) [Mass fraction] 1.1 % Normal 0.0-1 .5 [facility] Comment on above: Order Comment: Specimen Type : ARTERIAL BLOOD SPECIMENOrdering Facility: [facility] Address: [address] [address] Performed By: #### ALLBG ### #[facility] LABORATORYCLIA [id number] [facility], [facility] [place] O2 THERAPY Ventilator Normal [facility] Comment on above: Order Comment: Specimen Type : ARTERIAL BLOOD SPECIMENOrdering Facility: [facility] Address: [address] [address] Performed By: #### ALLBG ### #[facility]ORATORYCLIA [id number] [place] [facility], [address] [place] Oxygen (Bld) [Partial pressure] 136 mm Hg High 85-95 [facility] Comment on above: Order Comment: Specimen Type : ARTERIAL BLOOD SPECIMENOrdering Facility: [facility] Address: [address] [address] Performed By: #### ALLBG ### #[facility]ORATORYCLIA [id number] [place] [address] [facility] OF [place] Oxygen adjusted to patient's actual 137 mmHg High 85-95 [facility] temperature (Bld) [Partial pressure] Comment on above: Order Comment: Specimen Type : ARTERIAL BLOOD SPECIMENOrdering Facility: [facility] Address: [address] [place] [address] Performed By: #### ALLBG ### #[facility] LABORATORYCLIA [id number] [place] [address] [facility] Oxyhemoglobin (BldA) [Mass fraction] 95 % Normal 95-9 8 [facility] Comment on above: Order Comment: Specimen Type : ARTERIAL BLOOD SPECIMENOrdering Facility: [facility] Address: [address] [place] [address] Performed By: #### ALLBG ### #[facility] LABORATORYCLIA [id number] [facility] [place], [facility] [place] pH (Bld) 7.32 [pH] Low 7.35-7.45 [facility] Comment on above: Order Comment: Specimen Type : ARTERIAL BLOOD SPECIMENOrdering Facility: [facility] Address: [address] [place] [address] Performed By: #### ALLBG ### #[facility] LABORATORYCLIA [id number] [place] [address] [facility] [place] pH adjusted to patient's actual 7.32 Low 7.35-7.45 [facility] temperature (Bld) Comment on above: Order Comment: Specimen Type : ARTERIAL BLOOD SPECIMENOrdering Facility: [facility] Address: [address] [place] [address] Performed By: #### ALLBG ### #[facility] LABORATORYCLIA [id number] [place] [address] [facility] [place] Potassium [Moles/Vol] 4.3 mmol/L Normal 3.5-5.0 [facility] Comment on above: Order Comment: Specimen Type : ARTERIAL BLOOD SPECIMENOrdering Facility: [facility] Address: [address] [address] Performed By: #### ALLBG ### #[facility] LABORATORYCLIA [id number] [facility] [address] [place] Sodium [Moles/Vol] 135 mmol/L Low 136-144 [facility] Comment on above: Order Comment: Specimen Type : ARTERIAL BLOOD SPECIMENOrdering Facility: [facility] Address: [address] [address] Performed By: #### ALLBG ### #[facility] LABORATORYCLIA [id number] [place] [address] [place] Base deficit (BldA) [Moles/Vol] -1 mmol/L Normal -2-0 [facility] Comment on above: Order Comment: Specimen Type : ARTERIAL BLOOD SPECIMENOrdering Facility: [facility] Address: [address] [address] Performed By: #### ALLBG ### #[facility] LABORATORYCLIA [id number] [address] [place] Body temperature 97.52 [degF] Normal [facility] Comment on above: Order Comment: Specimen Type : ARTERIAL BLOOD SPECIMENOrdering Facility: [facility] Address: [address] [address] Performed By: #### ALLBG ### #[facility] LABORATORYCLIA [id number] [facility], [address] [place] Calcium.ionized (BldV) 1.18 mmol/L Normal 1.08-1.30 [facility] [Mass/Vol] [place] Comment on above: Order Comment: Specimen Type : ARTERIAL BLOOD SPECIMENOrdering Facility: [facility] Address: [address] [address] Performed By: #### ALLBG ### #[facility] LABORATORYCLIA [id number] [address] [place] Calcium.ionized adjusted to pH 1.08 mmol/L Normal 1.08-1.30 [facility] 7.4 (BldA) [Moles/Vol] Genoveva burciaga Comment on above: Order Comment: Specimen Type : ARTERIAL BLOOD SPECIMENOrdering Facility: [facility] Address: [address] [address] Performed By: #### ALLBG ### #[facility] LABORATORYCLIA [id number] [address] OF [facility] Carboxyhemoglobin (BldA) [Mass 3.0 % High 0.0-2.0 [facility] fraction] Comment on above: Order Comment: Specimen Type : ARTERIAL BLOOD SPECIMENOrdering Facility: [facility] Address: [address] [place] [address] Result Comment: Carboxyhemog lobin Reference Range for Smokers: 2.0-8.0% Performed By: #### ALLBG ### #LiveStoriesRON [facility] LABORATORYCLIA [id number] [address] STATES OF [facility] Chloride [Moles/Vol] 104 mmol/L Normal 102-109 [facility] Comment on above: Order Comment: Specimen Type : ARTERIAL BLOOD SPECIMENOrdering Facility: [facility] Address: [address] [place] [address] Performed By: #### ALLBG ### #LiveStoriesHEN[facility] GENERAL LABORATORYCLIA [id number] [address] OF [place] CO2 (Bld) [Partial pressure] 63 mm Hg High 36-46 [facility] Comment on above: Order Comment: Specimen Type : ARTERIAL BLOOD SPECIMENOrdering Facility: [facility] Address: [address] [address] Performed By: #### ALLBG ### #[facility] LABORATORYCLIA [id number] [address] OF [facility] CO2 [Moles/Vol] 25 mmol/L Normal 22-28 [facility] Comment on above: Order Comment: Specimen Type : ARTERIAL BLOOD SPECIMENOrdering Facility: [facility] Address: [address] [address] Performed By: #### ALLBG ### #[facility] LABORATORYCLIA [id number] [facility] [address] CO2 adjusted to patient's actual 61 mmHg High 36-46 [facility] temperature (Bld) [Partial pressure] Comment on above: Order Comment: Specimen Type : ARTERIAL BLOOD SPECIMENOrdering Facility: [facility] Address: [address] [address] Performed By: #### ALLBG ### #[facility]ORATORYCLIA [id number] [facility] [address] OF [place] FIO2 80 % Normal [facility] Comment on above: Order Comment: Specimen Type : ARTERIAL BLOOD SPECIMENOrdering Facility: [facility] Address: [address] [address] Performed By: #### ALLBG ### #[facility] LABORATORYCLIA [id number] [facility] [address] [place] Glucose [Mass/Vol] 162 mg/dL High 60-105 [facility] Comment on above: Order Comment: Specimen Type : ARTERIAL BLOOD SPECIMENOrdering Facility: [facility] Address: [address] [address] Performed By: #### ALLBG ### #[facility] LABORATORYCLIA [id number] [facility] [address] HCO3 (Bld) [Moles/Vol] 26 mmol/L Normal 22-26 [facility] Comment on above: Order Comment: Specimen Type : ARTERIAL BLOOD SPECIMENOrdering Facility: [facility] Address: [address] [address] Performed By: #### ALLBG ### #[facility] LABORATORYCLIA [id number] [address] OF [place] Hematocrit (Bld) [Volume fraction] 29.1 % Low 36.0-4 6.0 [facility] Comment on above: Order Comment: Specimen Type : ARTERIAL BLOOD SPECIMENOrdering Facility: [facility] Address: [address] [address] Performed By: #### ALLBG ### #[facility]ORATORYCLIA [id number] [facility] [place], [facility] [place] Hemoglobin (Bld) [Mass/Vol] 9.4 g/dL Low 11.5-15.5 [facility] Comment on above: Order Comment: Specimen Type : ARTERIAL BLOOD SPECIMENOrdering Facility: [facility] Address: [address] [address] Performed By: #### ALLBG ### #[facility]ORATORYCLIA [id number] [facility] [place], [address] [place] Lactate [Moles/Vol] 0.5 mmol/L Normal 0.5-2.2 [facility] Comment on above: Order Comment: Specimen Type : ARTERIAL BLOOD SPECIMENOrdering Facility: [facility] Address: [address] [address] Performed By: #### ALLBG ### #[facility] LABORATORYCLIA [id number] [facility] [place], [address] [place] Methemoglobin (Bld) [Mass fraction] 1.1 % Normal 0.0-1 .5 [facility] Comment on above: Order Comment: Specimen Type : ARTERIAL BLOOD SPECIMENOrdering Facility: [facility] Address: [address] [address] Performed By: #### ALLBG ### #[facility] LABORATORYCLIA [id number] [place] [address] [place] O2 THERAPY Ventilator Normal [facility] Comment on above: Order Comment: Specimen Type : ARTERIAL BLOOD SPECIMENOrdering Facility: [facility] Address: [address] [address] Performed By: #### ALLBG ### #[facility] LABORATORYCLIA [id number] [place] [address] [facility] [place] Oxygen (Bld) [Partial pressure] 91 mm Hg Normal 85-95 [facility] Comment on above: Order Comment: Specimen Type : ARTERIAL BLOOD SPECIMENOrdering Facility: [facility] Address: [address] [address] Performed By: #### ALLBG ### #[facility] LABORATORYCLIA [id number] [place] [address] [facility] [place] Oxygen adjusted to patient's actual 88 mmHg Normal 85-95 [facility] temperature (Bld) [Partial pressure] Comment on above: Order Comment: Specimen Type : ARTERIAL BLOOD SPECIMENOrdering Facility: [facility] Address: [address] [address] Performed By: #### ALLBG ### #[facility] LABORATORYCLIA [id number] [place] [address] [facility] [place] Oxyhemoglobin (BldA) [Mass fraction] 92 % Low 95-9 8 [facility] Comment on above: Order Comment: Specimen Type : ARTERIAL BLOOD SPECIMENOrdering Facility: [facility] Address: [address] [address] Performed By: #### ALLBG ### #[facility]ORATORYCLIA [id number] [facility] [place], [facility] [place] PEEP/CPAP 10 cmH2O Normal [facility] Comment on above: Order Comment: Specimen Type : ARTERIAL BLOOD SPECIMENOrdering Facility: [facility] Address: [address] [address] Performed By: #### ALLBG ### #[facility]ORATORYCLIA [id number] [place] [address] [place] pH (Bld) 7.24 [pH] Low 7.35-7.45 [facility] Comment on above: Order Comment: Specimen Type : ARTERIAL BLOOD SPECIMENOrdering Facility: [facility] Address: [address] [address] Performed By: #### ALLBG ### #[facility]ORATORYCLIA [id number] [facility] [place], [address] pH adjusted to patient's actual 7.25 Low 7.35-7.45 [facility] temperature (Bld) Comment on above: Order Comment: Specimen Type : ARTERIAL BLOOD SPECIMENOrdering Facility: [facility] Address: [address] [place] [address] Performed By: #### ALLBG ### #[facility] LABORATORYCLIA [id number] [facility], [address] Potassium [Moles/Vol] 4.9 mmol/L Normal 3.5-5.0 [facility] Comment on above: Order Comment: Specimen Type : ARTERIAL BLOOD SPECIMENOrdering Facility: [facility] Address: [address] [place] [address] Performed By: #### ALLBG ### #[facility] LABORATORYCLIA [id number] [facility], [address] SET VENTILATOR RESPIRATORY RATE (BPM) 16 BPM Normal [facility] Comment on above: Order Comment: Specimen Type : ARTERIAL BLOOD SPECIMENOrdering Facility: [facility] Address: [address] [address] Performed By: #### ALLBG ### #[facility]ORATORYCLIA [id number] [facility], [address] [place] Sodium [Moles/Vol] 134 mmol/L Low 136-144 [facility] Comment on above: Order Comment: Specimen Type : ARTERIAL BLOOD SPECIMENOrdering Facility: [facility] Address: [address] [address] Performed By: #### ALLBG ### #[facility] LABORATORYCLIA [id number] [facility], [address] Bacteria Bld Cult on 12-25-2022 Bacteria identified Cx Nom CULTURE, BLOOD: Normal [facility] (Bld) No growth 5 days Center Comment on above: Performed By: #### 600-7 ### #[facility]ORATORYCLIA [id number] [address] OF [facility] Bacteria identified Cx Nom CULTURE, BLOOD: Normal [facility] (Bld) No growth 5 days Center Comment on above: Performed By: #### 600-7 ### #[facility] LABORATORYCLIA [id number] [address] OF [facility] Bacteria Spec Anaerobe Cult on 12-25-19 23 Bacteria identified Anaer CULTURE, ANAEROBE: Normal [facility] cx Nom (Unsp spec) Moderate mixed anaerobic yolanda ra. No Bacteroides fragilis group isolated. No Clostridium perfringens isolated. Center Comment on above: Performed By: #### 14567-3, 38585-9, 635-3 ####[facility] LABORATORYCLIA [id number] [address] [place] Bacteria Tiss Cult on 12-25-2022 Bacteria identified Cx ORGANISM ID: 1 Abnormal Akr on General Nom (Tiss) Few Streptococcus anginosus [facility] ORGANISM ID: 2 Rare skin nando GRAM STAIN: Few Gram positive cocci Rare Gram negative bacilli No Polymorphonuclear Leukocytes Comment on above: Performed By: #### 05627-5, 25157-9, 635-3 ####[facility] LABORATORYCLIA [id number] [address] [place] Basic metabolic 2000 panel on 3 Anion gap [Moles/Vol] 11 mmol/L Normal 9-18 [facility] Comment on above: Order Comment: Specimen Type : BLOOD SPECIMENOrdering Facility: [facility] Address: [address] [address] Performed By: #### 49607-1 # ###[facility] LABORATORYCLIA [id number] [address] STATES OF [facility] Calcium [Mass/Vol] 8.3 mg/dL Low 8.5-10.2 [facility] Comment on above: Order Comment: Specimen Type : BLOOD SPECIMENOrdering Facility: [facility] Address: [address] [address] Performed By: #### 64591-8 # ###[facility] LABORATORYCLIA [id number] [facility], [address] [place] Chloride [Moles/Vol] 100 mmol/L Normal 97-105 [facility] Comment on above: Order Comment: Specimen Type : BLOOD SPECIMENOrdering Facility: [facility] Address: [address] [address] Performed By: #### 76545-9 # ###[facility] LABORATORYIA [id number] [address] [place] CO2 [Moles/Vol] 26 mmol/L Normal 22-30 [facility] Comment on above: Order Comment: Specimen Type : BLOOD SPECIMENOrdering Facility: [facility] Address: [address] [address] Performed By: #### 72550-0 # ###[facility] HOSPITALIA [id number] [address] [place] Creatinine [Mass/Vol] 1.69 mg/dL High 0.58-0.96 [facility] Comment on above: Order Comment: Specimen Type : BLOOD SPECIMENOrdering Facility: [facility] Address: [address] [place] [address] Performed By: #### 50793-5 # ###[facility] LABORATORYIA [id number] [address] OF [place] ESTIMATED GLOMERULAR 38 mL/min/1.73m??? Low >=60 A [facility] FILTRATION RATE Center Comment on above: Order Comment: Specimen Type : BLOOD SPECIMENOrdering Facility: [facility] Address: [address] [address] Result Comment: Estimated Gl omerular Filtration Rate [...] accurately reflect actual GFR. Performed By: #### 82303-2 # ###[facility] LABORATORYCLIA [id number] [place] [address] [place] Glucose [Mass/Vol] 123 mg/dL High 74-99 [facility] Comment on above: Order Comment: Specimen Type : BLOOD SPECIMENOrdering Facility: [facility] Address: [address] [address] Result Comment: The [place]de[place] Diabetes Association (ADA) provides guidance for cutoff [...] Standards of Medical Care in Diabetes 2016, [facility] Diabetes Association. Diabetes Care. 2016.39(Suppl 1). Performed By: #### 22862-5 # ###[facility] LABORATORYCLIA [id number] [place] [address] [place] Potassium [Moles/Vol] 5.1 mmol/L Normal 3.7-5.1 [facility] Comment on above: Order Comment: Specimen Type : BLOOD SPECIMENOrdering Facility: [facility] Address: [address] [address] Performed By: #### 06839-9 # ###[facility] LABORATORYCLIA [id number] [place] [address] [place] Sodium [Moles/Vol] 137 mmol/L Normal 136-144 [facility] Comment on above: Order Comment: Specimen Type : BLOOD SPECIMENOrdering Facility: [facility] Address: [address] [address] Performed By: #### 03972-4 # ###[facility] LABORATORYCLIA [id number] [place] [address] [place] Urea nitrogen [Mass/Vol] 30 mg/dL High 7-21 [facility] Comment on above: Order Comment: Specimen Type : BLOOD SPECIMENOrdering Facility: [facility] Address: [address] [place] [address] Performed By: #### 36354-4 # ###[facility]ORATORYCLIA [id number] [place] [address] [place] Anion gap [Moles/Vol] 10 mmol/L Normal 9-18 [facility] Comment on above: Order Comment: Specimen Type : BLOOD SPECIMENOrdering Facility: [facility] Address: [address] [address] Performed By: #### 22733-8 # ###[facility] LABORATORYCLIA [id number] [place] [address] [place] Calcium [Mass/Vol] 8.6 mg/dL Normal 8.5-10.2 [facility] Comment on above: Order Comment: Specimen Type : BLOOD SPECIMENOrdering Facility: [facility] Address: [address] [address] Performed By: #### 57449-7 # ###[facility] LABORATORYCLIA [id number] [place] [address] [place] Chloride [Moles/Vol] 101 mmol/L Normal 97-105 [facility] Comment on above: Order Comment: Specimen Type : BLOOD SPECIMENOrdering Facility: [facility] Address: [address] [address] Performed By: #### 32497-4 # ###[facility]ORATORYCLIA [id number] [place] [address] [place] CO2 [Moles/Vol] 26 mmol/L Normal 22-30 [facility] Comment on above: Order Comment: Specimen Type : BLOOD SPECIMENOrdering Facility: [facility] Address: [address] [address] Performed By: #### 34820-4 # ###[facility]ORATORYCLIA [id number] [address] [id number] [place] Creatinine [Mass/Vol] 1.52 mg/dL High 0.58-0.96 [facility] Comment on above: Order Comment: Specimen Type : BLOOD SPECIMENOrdering Facility: [facility] Address: [address] [address] Performed By: #### 13864-6 # ###[facility]OSPITALIA [id number] [address] [id number] [place] ESTIMATED GLOMERULAR 43 mL/min/1.73m??? Low >=60 A [facility] FILTRATION RATE Center Comment on above: Order Comment: Specimen Type : BLOOD SPECIMENOrdering Facility: [facility] Address: [address] [place] [address] Result Comment: Estimated Gl omerular Filtration Rate [...] accurately reflect actual GFR. Performed By: #### 25044-5 # ###[facility] [id number] [address] [id number] [place] Glucose [Mass/Vol] 92 mg/dL Normal 74-99 [facility] Comment on above: Order Comment: Specimen Type : BLOOD SPECIMENOrdering Facility: [facility] Address: [address] [place] [address] Result Comment: The Pry[place] Diabetes Association (ADA) provides guidance for cutoff [...] Standards of Medical Care in Diabetes 2016, [facility] Diabetes Association. Diabetes Care. 2016.39(Suppl 1). Performed By: #### 91138-1 # ###[facility] LABORATORYCLIA [id number] [address] STATES OF [facility] Potassium [Moles/Vol] 4.9 mmol/L Normal 3.7-5.1 [facility] Comment on above: Order Comment: Specimen Type : BLOOD SPECIMENOrdering Facility: [facility] Address: [address] [address] Performed By: #### 70768-9 # ###[facility] INSTITUTECLIA [id number] [address] STATES OF [facility] Sodium [Moles/Vol] 137 mmol/L Normal 136-144 [facility] Comment on above: Order Comment: Specimen Type : BLOOD SPECIMENOrdering Facility: [facility] Address: [address] [address] Performed By: #### 70637-2 # ###[facility]NOSTIC INSTITUTECLIA [id number] [address] [place] Urea nitrogen [Mass/Vol] 29 mg/dL High 7-21 [facility] Comment on above: Order Comment: Specimen Type : BLOOD SPECIMENOrdering Facility: [facility] Address: [address] [address] Performed By: #### 91278-1 # ###[facility] LABORATORYCLIA [id number] [address] [place] CBC panel Auto (Bld) on 12-25-2022 Erythrocyte distribution width 16.6 % High 11.5-15.0 [facility] (RBC) [Ratio] Comment on above: Order Comment: Specimen Type : BLOOD SPECIMENOrdering Facility: [facility] Address: [address] [address] Performed By: #### 52424-1 # ###[facility]ORATORYCLIA [id number] [facility], [address] [place] Hematocrit (Bld) [Volume fraction] 32.5 % Low 36.0-4 6.0 [facility] Comment on above: Order Comment: Specimen Type : BLOOD SPECIMENOrdering Facility: [facility] Address: [address] [place] [address] Performed By: #### 06909-7 # ###[facility] LABORATORYCLIA [id number] [facility], [address] OF [facility] Hemoglobin (Bld) [Mass/Vol] 9.7 g/dL Low 11.5-15.5 [facility] Comment on above: Order Comment: Specimen Type : BLOOD SPECIMENOrdering Facility: [facility] Address: [address] [place] [address] Performed By: #### 77375-1 # ###[facility] LABORATORYCLIA [id number] [address] [place] MCH (RBC) [Entitic mass] 29.2 pg Normal 26.0-34.0 [facility] Comment on above: Order Comment: Specimen Type : BLOOD SPECIMENOrdering Facility: [facility] Address: [address] [place] [address] Performed By: #### 50724-5 # ###[facility] LABORATORYCLIA [id number] [address] [place] MCHC (RBC) [Mass/Vol] 29.8 g/dL Low 30.5-36.0 [facility] Comment on above: Order Comment: Specimen Type : BLOOD SPECIMENOrdering Facility: [facility] [facility] Address: [address] [place] [address] Performed By: #### 26085-5 # ###[facility] LABORATORYCLIA [id number] [address] [place] MCV (RBC) [Entitic vol] 97.9 fL Normal 80.0-100.0 [facility] Comment on above: Order Comment: Specimen Type : BLOOD SPECIMENOrdering Facility: [facility] Address: [address] [address] Performed By: #### 00028-0 # ###[facility] LABORATORYCLIA [id number] [facility] [place] [place] [address] [place] Nucleated RBC (Bld) [#/Vol] 0.03 10*3/uL High <0.01 [facility] Comment on above: Order Comment: Specimen Type : BLOOD SPECIMENOrdering Facility: [facility] Address: [address] [address] Performed By: #### 13098-6 # ###[facility] LABORATORYCLIA [id number] [facility] [place], [facility] Platelet mean volume (Bld) 9.5 fL Normal 9.0-12.7 [facility] [Entitic vol] Comment on above: Order Comment: Specimen Type : BLOOD SPECIMENOrdering Facility: [facility] Address: [address] [address] Performed By: #### 42075-8 # ###[facility] LABORATORYCLIA [id number] [facility] [place], [place] [address] [place] [address] OF [place] Platelets (Bld) [#/Vol] 323 10*3/uL Normal 150-400 [facility] Comment on above: Order Comment: Specimen Type : BLOOD SPECIMENOrdering Facility: [facility] Address: [address] Performed By: #### 64014-2 # ###[facility] LABORATORYCLIA [id number] [facility] [place] [id number] [place] [address] [place] RBC (Bld) [#/Vol] 3.32 10*6/uL Low 3.90-5.20 [facility] Comment on above: Order Comment: Specimen Type : BLOOD SPECIMENOrdering Facility: [facility] Address: [address] Performed By: #### 70314-3 # ###[facility] LABORATORYCLIA [id number] [facility] [address] OF [place] WBC (Bld) [#/Vol] 19.06 10*3/uL High 3.70-11.00 [facility] Comment on above: Order Comment: Specimen Type : BLOOD SPECIMENOrdering Facility: [facility] Address: [address] [place] [address] Performed By: #### 15729-4 # ###[facility] LABORATORYCLIA [id number] [address] OF [facility] Erythrocyte distribution width 16.5 % High 11.5-15.0 [facility] (RBC) [Ratio] Comment on above: Order Comment: Specimen Type : BLOOD SPECIMENOrdering Facility: [facility] Address: [address] [place] [address] Performed By: #### 35499-7 # ###[facility] LABORATORYCLIA [id number] [address] Hematocrit (Bld) [Volume fraction] 32.4 % Low 36.0-4 6.0 [facility] Comment on above: Order Comment: Specimen Type : BLOOD SPECIMENOrdering Facility: [facility] Address: [address] [place] [address] Performed By: #### 44277-0 # ###[facility] LABORATORYCLIA [id number] [address] OF [facility] Hemoglobin (Bld) [Mass/Vol] 9.4 g/dL Low 11.5-15.5 [facility] Comment on above: Order Comment: Specimen Type : BLOOD SPECIMENOrdering Facility: [facility] Address: [address] [place] [address] Performed By: #### 87743-4 # ###[facility] LABORATORYCLIA [id number] [address] MCH (RBC) [Entitic mass] 28.2 pg Normal 26.0-34.0 [facility] Comment on above: Order Comment: Specimen Type : BLOOD SPECIMENOrdering Facility: [facility] Address: [address] [address] Performed By: #### 39144-3 # ###[facility] LABORATORYCLIA [id number] [facility] MCHC (RBC) [Mass/Vol] 29.0 g/dL Low 30.5-36.0 [facility] Comment on above: Order Comment: Specimen Type : BLOOD SPECIMENOrdering Facility: [facility] Address: [address] [address] Performed By: #### 54654-9 # ###[facility] LABORATORYCLIA [id number] [facility]CA[facility]ITAL[facility] MCV (RBC) [Entitic vol] 97.3 fL Normal 80.0-100.0 [facility] Comment on above: Order Comment: Specimen Type : BLOOD SPECIMENOrdering Facility: [facility] Address: [address] [address] Performed By: #### 68989-9 # ###[facility] LABORATORYCLIA [id number] [address] Nucleated RBC (Bld) [#/Vol] 10*3/uL Normal <0.01 [facility] Comment on above: Order Comment: Specimen Type : BLOOD SPECIMENOrdering Facility: [facility] Address: [address] [address] Performed By: #### 70955-3 # ###[facility] LABORATORYCLIA [id number] [facility]CA[facility], [address] Platelet mean volume (Bld) 9.7 fL Normal 9.0-12.7 [facility] [Entitic vol] Comment on above: Order Comment: Specimen Type : BLOOD SPECIMENOrdering Facility: [facility] Address: [address] [address] Performed By: #### 96464-0 # ###[facility] LABORATORYCLIA [id number] [facility] [place], [address] Platelets (Bld) [#/Vol] 308 10*3/uL Normal 150-400 [facility] Comment on above: Order Comment: Specimen Type : BLOOD SPECIMENOrdering Facility: [facility] Address: [address] [place] [address] Performed By: #### 93407-1 # ###[facility] LABORATORYCLIA [id number] [place] [address] [place] RBC (Bld) [#/Vol] 3.33 10*6/uL Low 3.90-5.20 [facility] Comment on above: Order Comment: Specimen Type : BLOOD SPECIMENOrdering Facility: [facility] Address: [address] [place] [address] Performed By: #### 55262-7 # ###[facility] LABORATORYCLIA [id number] [place] [address] [place] WBC (Bld) [#/Vol] 17.43 10*3/uL High 3.70-11.00 [facility] Comment on above: Order Comment: Specimen Type : BLOOD SPECIMENOrdering Facility: [facility] Address: [address] [place] [address] Performed By: #### 71536-9 # ###[facility] LABORATORYCLIA [id number] [place] [address] [facility] OF [place] CNCRITCR on 12-25-2022 CNCRITCR Normal [facility] CONSULT PROG on 12-25-2022 CONSULT PROG Normal [facility] CON[facility] Normal [facility] CONSULT PROG Normal [facility] ECG COMPLETE on 12-25-2022 ECG COMPLETE Normal [facility] ED NOTE on 12-25-2022 ED NOTE HNO ID: [id number] [facility] Author: Claire Sanchez RN Service: Emergency Medicine Author Type: Registered Nurse Type: ED Notes Filed: 12/25/2022 3:16 AM Note Text: Depart to OR ED NOTE HNO ID: [id number] Normal [facility] Author: Claire Sanchez RN Service: Emergency Medicine Author Type: Registered Nurse Type: ED Notes Filed: 12/25/2022 2:39 AM Note Text: Dr. Reyes at bedside to evaluate pt ED NOTE HNO ID: [id number] [facility] Author: Claire Sanchez RN Service: Emergency Medicine Author Type: Registered Nurse Type: ED Notes Filed: 12/25/2022 2:29 AM Note Text: EKG performed at bedside ED NOTE HNO ID: [id number] [facility] Author: Claire Sanchez RN Service: Emergency Medicine Author Type: Registered Nurse Type: ED Notes Filed: 12/25/2022 2:28 AM Note Text: ED NOTE HNO ID: [id number] [facility] Author: Claire Sanchez RN Service: Emergency Medicine Author Type: Registered Nurse Type: ED Notes Filed: 12/25/2022 2:29 AM Note Text: Surgery at bedside ED NOTE Normal [facility] ED NOTE HNO ID: [id number] [facility] Author: Claire Sanchez RN Service: Emergency Medicine Author Type: Registered Nurse Type: ED Notes Filed: 12/25/2022 1:56 AM Note Text: Dr. Saleh at bedside to evaluate pt ED NOTE HNO ID: [id number] [facility] Author: Sirena Redman RN Service: ? Author Type: Registered Nurse Type: ED Notes Filed: 12/25/2022 1:44 AM Note Text: Bed: 01-ED Expected date: Expected time: Means of arrival: Comments: Inguinal issue ED PROV NOTE on 12-25-2022 ED PROV NOTE Normal [facility] FLUABV+SARS-CoV-2+RSV Pnl Resp SURESH+probe on 12-25-2022 FLUABV+SARS-CoV-2+RSV Pnl Resp SURESH+probe Normal [facility] Comment on above: Performed By: #### 45103-2 # ###[facility] LABORATORYCLIA [id number] [place] [address] [facility] HIGH SENSITIVITY TROPONIN T on 12-25-19 23 HIGH SENSITIVITY CATERINA 23 ng/L High <12 [facility] Comment on above: Order Comment: Specimen Type : BLOOD SPECIMENOrdering Facility: [facility] Address: [address] [place] [address] Result Comment: When assessi ng risk for [...] MAC E. Performed By: #### HSTNT ### #[facility] LABORATORYCLIA [id number] [address] HIGH SENSITIVITY CATERINA 34 ng/L High <12 [facility] Comment on above: Order Comment: Specimen Type : BLOOD SPECIMENOrdering Facility: [facility] Address: [address] [place] [address] Result Comment: When assessi ng risk for [...] MAC E. Performed By: #### HSTNT ### #[facility] LABORATORYCLIA [id number] [address] HISTORY PHYSICAL on 12-25-2022 HISTORY PHYSICAL Normal [facility] Lactate (Bld) [Moles/Vol] on 12-25-2022 Lactate [Moles/Vol] 0.8 mmol/L Normal 0.5-2.2 [facility] Comment on above: Order Comment: Specimen Type : BLOOD SPECIMENOrdering Facility: [facility] Address: [address] [place] [address] Performed By: #### 42850-8 # ###[facility] LABORATORYCLIA [id number] [address] Microorganism Spec Cult on 12-25-2022 Microorganism identified Cx CULTURE, FUNGAL: Normal [facility] (Unsp spec) No Fungus isolated after 28 days Center FUNGAL SMEAR: No fungus seen Comment on above: Performed By: #### 98838-5, 83942-0, 635-3 ####[facility] LABORATORYCLIA [id number] [place] [address] [facility] Microorganism identified Cx CULTURE, AFB: Normal [facility] (Unsp spec) No Acid Fast Bacilli isolated after 42 days Center AFB STAIN: No acid fast bacilli seen by flurochrome stain Comment on above: Performed By: #### 15069-4, 62704-8, 635-3 ####[facility] LABORATORYCLIA [id number] [place] [address] [facility] NUTRITION on 12-25-2022 NUTRITION Normal [facility] OPERATIVE NO on 12-25-2022 OPERATIVE NO Normal [facility] PT panel Coag (PPP) on 12-25-2022 INR Coag (PPP) [Relative time] 1.1 {INR} Normal 0.9-1.3 [facility] Comment on above: Order Comment: Specimen Type : BLOOD SPECIMENOrdering Facility: [facility] Address: [address] [place] [id number] Result Comment: Vitamin K An tagonist (VKA) [...] al. Chest 2012, 141:7S-47SNishimdarlene RA, et al. [facility] 2017, 70: 25 2-289 Performed By: #### 86002-4 # ###[facility] LABORATORYCLIA [id number] [address] [place] PT Coag (PPP) [Time] 11.6 s Normal 9.7-13.0 [facility] Comment on above: Order Comment: Specimen Type : BLOOD SPECIMENOrdering Facility: [facility] Address: [address] [place] [address] Performed By: #### 59873-2 # ###[facility] LABORATORYIA [id number] [address] STAPH AUREUS PCR on 12-25-2022 S. aureus and MRSA panel SURESH+probe Abnormal Negati ve [facility] (Nose) Comment on above: Order Comment: Specimen Type : SWAB OF INTERNAL NOSEOrdering Facility: [facility] Address: [address] [place] [address] Result Comment: Positive for Staphylococcus aureus by PCR.Positive for MRSA by PCR Performed By: #### SAPCR ### #[facility] HOSPITALIA [id number] [address] SURGICAL PATHOLOGY on 12-25-2022 CASE REPORT Normal [facility] Comment on above: Order Comment: Specimen Type : TISSUE SPECIMENOrdering Facility: [facility] Address: [address] [place] [address] Result Comment: Surgical Pat hology Report Case: [id number] Provi mame: Hubert Leblanc MD Collected: 12/25/2022 04:15 AMOrdering Location: [place] [facility] Received: 12/25/2022 08:[address]: Eran Melgar, DOSpecimen: DEBRIDEMENT, LEFT GROIN WOUN D Performed By: #### S ####[facility] LABORATORYCLIA [id number] [facility], [address] CLINICAL HISTORY Normal [facility] Comment on above: Order Comment: Specimen Type : TISSUE SPECIMENOrdering Facility: [facility] Address: [address] [place] [address] Result Comment: Pre-op diagn osis:Necrotizing soft tissue infection [M79.89] Performed By: #### S ####[facility] LABORATORYCLIA [id number] [address] DIAGNOSIS COMMENT Correlation with microbiologic Normal [facility] studies is necessary. Center Comment on above: Order Comment: Specimen Type : TISSUE SPECIMENOrdering Facility: [facility] Address: [address] [place] [address] Performed By: #### S ####[facility] LABORATORYCLIA [id number] [address] FINAL DIAGNOSIS Normal [facility] Comment on above: Order Comment: Specimen Type : TISSUE SPECIMENOrdering Facility: [facility] Address: [address] [place] [address] Result Comment: A. Left groi n wound, debridement:- Skin and soft tissue with suppurative acut e inflammation and focal gangrenous necrosis. See comment.Electr onically signed by Eran Melgar DO on 12/30/2022 at 9:18 AM Performed By: #### S ####[facility] LABORATORYCLIA [id number] [address] FINAL PERFORMING LAB Normal [facility] Comment on above: Order Comment: Specimen Type : TISSUE SPECIMENOrdering Facility: [facility] Address: [address] [place] [address] Result Comment: Diagnostic i nterpretation performed at [facility], [address] [place] [address] CLIA# [id number] oratory Director: Faraz Sawant M.D. Performed By: #### S ####[facility] LABORATORYCLIA [id number] [address] GROSS DESCRIPTION A. DEBRIDEMENT Normal [facility] Comment on above: Order Comment: Specimen Type : TISSUE SPECIMENOrdering Facility: [facility] Address: [address] [place] [address] Result Comment: A. Received in formalin labeled left groin wound are multiple brennan-pink to brennan -green rubbery and ischemic appearing segments of tissue aggregati ng to 15.0 x 7.8 x 3.5 cm. Multiple segments of skin are present and display a xsw-teer-sce to pink-green ischemic appearan ce. Cane Cutter sections are submitted in formalin in 3 c assettes. Gross examination performed at [facility], [address] [place], [place] [address]MGD J anuary 2022 11:27 AM Performed By: #### S ####[facility] LABORATORYCLIA [id number] [facility] [address] [facility] TYPE + SCREEN on 12-25-2022 ABO O Normal [facility] Comment on above: Order Comment: Specimen Type : BLOOD SPECIMENOrdering Facility: [facility] Address: [address] [place] [address] Performed By: #### TSCR #### [facility] BLOOD BANKCLIA [id number] [address] HISTORICAL AB SCR STATUS Negative Normal [facility] Comment on above: Order Comment: Specimen Type : BLOOD SPECIMENOrdering Facility: [facility] Address: [address] [place] [address] Performed By: #### TSCR #### [facility] BLOOD BANKCLIA [id number] [address] Rh Nom (Bld) Negative Normal [facility] Comment on above: Order Comment: Specimen Type : BLOOD SPECIMENOrdering Facility: [facility] Address: [address] [place] [address] Performed By: #### TSCR #### [facility] BLOOD BANKCLIA [id number] [place] [id number] [facility] TYPE AND SCREEN EXPIRATION 12/28/2022 23:59 Normal [facility] Comment on above: Order Comment: Specimen Type : BLOOD SPECIMENOrdering Facility: [facility] Address: [address] [address] Performed By: #### TSCR #### [facility] BLOOD BANKCLIA [id number] [place] [address] [place] XR CHEST 1V FRONTAL on 12-25-2022 XR CHEST 1V FRONTAL Normal [facility] XR CHEST 1V FRONTAL Normal [facility] CNPN on 12-24-2022 CNPN Normal [facility] CNPN on 12-20-2022 CNPN Normal [facility] CNPN on 12-12-2022 CNPN Normal [facility] CNPN on 12-05-2022 CNPN Normal [facility] 25(OH)D3 SerPl-mCnc on 11-11-2022 25-hydroxyvitamin D3 [Mass/Vol] 33.1 ng/mL Normal 31.0-80.0 [facility] Comment on above: Order Comment: Specimen Type : BLOOD SPECIMENOrdering Facility: [facility] Address: [address] [id number] Result Comment: Classificati on of 25 [place] Vitamin D status:Deficiency/Insufficie ncy: < or = 30 ng/ml.Sufficiency/Optimal Le vels: 31-80 ng/mLToxicity: > 100 ng/mL.Test performed by chem iluminescent immunoassay. Performed By: #### 1989-3 ## ##[facility] LABCLIA [id number] [facility] [id number] [id number] [place] CNPN on 11-11-[address] [facility] metabolic 2000 panel on 01-12-2022 Albumin [Mass/Vol] 3.7 g/dL Low 3.9-4.9 [facility] Comment on above: Order Comment: Specimen Type : BLOOD SPECIMENOrdering Facility: [facility] Address: [address] [place] [address] Performed By: #### 36688-9 # ###[facility] H[facility]PITALNCLIA [id number] [address] [place] [address] [place] ALP [Catalytic activity/Vol] 69 U/L Normal 34-123 [facility] Comment on above: Order Comment: Specimen Type : BLOOD SPECIMENOrdering Facility: [facility] Address: [address] [place] [address] Performed By: #### 80290-5 # ###[facility] RONAL MILLTOWNCLIA [id number] [place] [address] [place] ALT [Catalytic activity/Vol] 24 U/L Normal 7-38 [facility] Comment on above: Order Comment: Specimen Type : BLOOD SPECIMENOrdering Facility: [facility] Address: [address] [place] [address] Performed By: #### 49998-4 # ###[facility] MILLTOWNCLIA [id number] [place] [address] [place] Anion gap [Moles/Vol] 12 mmol/L Normal 9-18 [facility] Comment on above: Order Comment: Specimen Type : BLOOD SPECIMENOrdering Facility: [facility] Address: [address] [place] [address] Performed By: #### 20311-2 # ###[facility]ITALOSTER MILLTOWNCLIA [id number] [place] [address] [place] AST [Catalytic activity/Vol] 19 U/L Normal 13-35 [facility] Comment on above: Order Comment: Specimen Type : BLOOD SPECIMENOrdering Facility: [facility] Address: [address] [place] [address] Performed By: #### 57831-0 # ###[facility] MILLTOWNCLIA [id number] [address] [facility] [place] [address] [place] Bilirubin [Mass/Vol] 0.2 mg/dL Normal 0.2-1.3 [facility] Comment on above: Order Comment: Specimen Type : BLOOD SPECIMENOrdering Facility: [facility] Address: [address] [facility] [place] [address] Performed By: #### 10878-8 # ###[facility] RONAL MILLTOWNCLIA [id number] [place] [address] [place] Calcium [Mass/Vol] 9.4 mg/dL Normal 8.5-10.2 [facility] Comment on above: Order Comment: Specimen Type : BLOOD SPECIMENOrdering Facility: [facility] Address: [address] [address] Performed By: #### 54483-4 # ###[facility] MILLTOWNCLIA [id number] [place] [address] [place] Chloride [Moles/Vol] 90 mmol/L Low 97-105 [facility] Comment on above: Order Comment: Specimen Type : BLOOD SPECIMENOrdering Facility: [facility] Address: [address] [address] Performed By: #### 04075-1 # ###[facility] MILLWNCLIA [id number] [place] [address] [place] CO2 [Moles/Vol] 30 mmol/L Normal 22-30 [facility] Comment on above: Order Comment: Specimen Type : BLOOD SPECIMENOrdering Facility: [facility] Address: [address] Performed By: #### 11509-6 # ###[facility] MILLTOWNCLIA [id number] [place] [address] [place] Creatinine [Mass/Vol] 1.27 mg/dL High 0.58-0.96 [facility] Comment on above: Order Comment: Specimen Type : BLOOD SPECIMENOrdering Facility: [facility] Address: [address] [address] Performed By: #### 28072-7 # ###[facility]ITALLI [id number] [place] [address] [place] ESTIMATED GLOMERULAR 53 mL/min/1.73m??? Low >=60 C [facility] FILTRATION RATE Comment on above: Order Comment: Specimen Type : BLOOD SPECIMENOrdering Facility: [facility] Address: [address] [place] [address] Result Comment: Estimated Gl omerular Filtration Rate [...] accurately reflect actual GFR. Performed By: #### 93693-6 # ###[facility] [id number] [place] [address] [place] Glucose [Mass/Vol] 221 mg/dL High 74-99 [facility] Comment on above: Order Comment: Specimen Type : BLOOD SPECIMENOrdering Facility: [facility] Address: [address] [place] [address] Result Comment: The [place] Diabetes Association (ADA) provides guidance for cutoff [...] of Medical Care in Diabetes 2016, [facility] Diabetes Association. Diabetes Care. 2016.39(Suppl 1). Performed By: #### 09047-3 # ###[facility]PITALLIA [id number] [place] [address] [place] Potassium [Moles/Vol] 4.9 mmol/L Normal 3.7-5.1 [facility] Comment on above: Order Comment: Specimen Type : BLOOD SPECIMENOrdering Facility: [facility] Address: [address] [place] [address] Performed By: #### 76124-5 # ###[facility] RONAL MILLTOWNCLIA [id number] [place] [address] [place] Protein [Mass/Vol] 6.9 g/dL Normal 6.3-8.0 [facility] Comment on above: Order Comment: Specimen Type : BLOOD SPECIMENOrdering Facility: [facility] Address: [address] [place] [address] Performed By: #### 94842-6 # ###[facility] MILLTOWKALILIA [id number] [place] [address] [place] Sodium [Moles/Vol] 132 mmol/L Low 136-144 [facility] Comment on above: Order Comment: Specimen Type : BLOOD SPECIMENOrdering Facility: [facility] Address: [address] [place] [address] Performed By: #### 95090-2 # ###[facility] MILLTOWNCLIA [id number] [place] [address] [place] Urea nitrogen [Mass/Vol] 44 mg/dL High 7-21 [facility] Comment on above: Order Comment: Specimen Type : BLOOD SPECIMENOrdering Facility: [facility] Address: [address] [place] [address] Performed By: #### 21646-8 # ###[facility] MILLTOWNCLIA [id number] [place] [address] [place] Albumin [Mass/Vol] 3.7 g/dL Low 3.9 - 4.9 g/dL [facility] ALP [Catalytic 69 U/L 34 - 123 U/L [facility]Vol] ALT [Catalytic 24 U/L 7 - 38 U/L [employer] [facility] rebecca activity/Vol] Anion gap [Moles/Vol] 12 mmol/L 9 - 18 mmol/L [facility] AST [Catalytic 19 U/L 13 - 35 U/L [facility]/Vol] Bilirubin [Mass/Vol] 0.2 mg/dL 0.2 - 1.3 mg/dL [facility] Calcium [Mass/Vol] 9.4 mg/dL 8.5 - 10.2 mg/dL [facility] Chloride [Moles/Vol] 90 mmol/L Low 97 - 105 mmol/L [facility] CO2 [Moles/Vol] 30 mmol/L 22 - 30 mmol/L [facility] Creatinine [Mass/Vol] 1.27 mg/dL High 0.58 - 0.96 mg/dL C [facility] Estimated Glomerular 53 mL/min/1.73m Low >=60 mL/min/1.73m [facility] Filtration Rate Glucose [Mass/Vol] 221 mg/dL High 74 - 99 mg/dL [facility] Potassium [Moles/Vol] 4.9 mmol/L 3.7 - 5.1 mmol/L [facility] Protein [Mass/Vol] 6.9 g/dL 6.3 - 8.0 g/dL [facility] Sodium [Moles/Vol] 132 mmol/L Low 136 - 144 mmol/L [facility] Urea nitrogen [Mass/Vol] 44 mg/dL High 7 - 21 mg/dL [facility] HbA1c (Bld) on 11-11-2022 Average glucose Estimated from glycated 243 mg/dL Normal [facility] hemoglobin (Bld) [Mass/Vol] Comment on above: Order Comment: Specimen Type : BLOOD SPECIMENOrdering Facility: [facility] Address: [address] [place] [address] Result Comment: eAG: (Estima mitul average glucose) is a calculated value from HgbA1c and is rep resentative of the average blood glucose level in the last 2- 3 month period. Performed By: #### 41532-6 # ###[facility] LABCLIA [id number] [place] [id number] [place] HbA1c (Bld) [Mass fraction] 10.1 % High 4.3-5.6 [facility] Comment on above: Order Comment: Specimen Type : BLOOD SPECIMENOrdering Facility: [facility] Address: [address] [address] Result Comment: Prydeinig Richard betes Association guidelines indicate that patients with HgbA1c in the range 5.7-6.4% are at increased risk for development of diab etes, and intervention by lifestyle modification may be benefici al. HgbA1c greater or equal to 6.5% is considered diagnostic of richard betes. Performed By: #### 90241-0 # ###[facility] LABIA [id number] [place] [id number] [place] Comprehensive metabolic 2000 panel on 01-10-2022 Albumin [Mass/Vol] 3.8 g/dL Low 3.9 - 4.9 g/dL [facility] ALP [Catalytic 65 U/L 34 - 123 U/L [employer] [facility] rebecca activity/Vol] ALT [Catalytic 36 U/L 7 - 38 U/L [employer] [facility] rebecca activity/Vol] Anion gap [Moles/Vol] 17 mmol/L 9 - 18 mmol/L [facility] AST [Catalytic 44 U/L High 13 - 35 U/L [facility]/Vol] Bilirubin [Mass/Vol] 0.3 mg/dL 0.2 - 1.3 mg/dL [facility] Calcium [Mass/Vol] 9.6 mg/dL 8.5 - 10.2 mg/dL [facility] Chloride [Moles/Vol] 82 mmol/L Low 97 - 105 mmol/L [facility] CO2 [Moles/Vol] 29 mmol/L 22 - 30 mmol/L [facility] Creatinine [Mass/Vol] 2.32 mg/dL High 0.58 - 0.96 mg/dL C [facility] Estimated Glomerular 26 mL/min/1.73m Low >=60 mL/min/1.73m [facility] Filtration Rate Glucose [Mass/Vol] 107 mg/dL High 74 - 99 mg/dL [facility] Potassium [Moles/Vol] 5.6 mmol/L High 3.7 - 5.1 mmol/L Cl [facility] Protein [Mass/Vol] 6.7 g/dL 6.3 - 8.0 g/dL [facility] Sodium [Moles/Vol] 128 mmol/L Low 136 - 144 mmol/L [facility] Urea nitrogen [Mass/Vol] 71 mg/dL High 7 - 21 mg/dL [facility] HbA1c (Bld) on 11-09-2022 Average glucose Estimated from glycated 235 mg/dL [facility] hemoglobin (Bld) [Mass/Vol] HbA1c (Bld) [Mass fraction] 9.8 % High 4.3 - 5.6 % [facility] CNOV on 11-08-2022 CNOV Normal [employer] [facility] metabolic 2000 panel on 01-09-2022 Albumin [Mass/Vol] 3.8 g/dL Low 3.9-4.9 [facility] Comment on above: Order Comment: Specimen Type : BLOOD SPECIMENOrdering Facility: [facility] Address: [address] [address] Performed By: #### 96156-8 # ###[facility] LABIA [id number] [place] [address] [place] ALP [Catalytic activity/Vol] 65 U/L Normal 34-123 [facility] Comment on above: Order Comment: Specimen Type : BLOOD SPECIMENOrdering Facility: [facility] Address: [address] [place] [address] Performed By: #### 65435-7 # ###[facility] LABCLIA [id number] [place] [address] [place] ALT [Catalytic activity/Vol] 36 U/L Normal 7-38 [facility] Comment on above: Order Comment: Specimen Type : BLOOD SPECIMENOrdering Facility: [facility] Address: [address] [place] [address] Performed By: #### 93089-8 # ###[facility] LABCLIA [id number] [place] [address] [place] Anion gap [Moles/Vol] 17 mmol/L Normal 9-18 [facility] Comment on above: Order Comment: Specimen Type : BLOOD SPECIMENOrdering Facility: [facility] Address: [address] [place] [address] Performed By: #### 96963-0 # ###[facility] LABCLIA [id number] [place] [address] [place] AST [Catalytic activity/Vol] 44 U/L High 13-35 [facility] Comment on above: Order Comment: Specimen Type : BLOOD SPECIMENOrdering Facility: [facility] Address: [address] [place] [address] Performed By: #### 95445-4 # ###[facility] LABCLIA [id number] [place] [address] [place] Bilirubin [Mass/Vol] 0.3 mg/dL Normal 0.2-1.3 [facility] Comment on above: Order Comment: Specimen Type : BLOOD SPECIMENOrdering Facility: [facility] Address: [address] [place] [address] Performed By: #### 89451-8 # ###[facility] LABCLIA [id number] [place] [address] [place] Calcium [Mass/Vol] 9.6 mg/dL Normal 8.5-10.2 [facility] Comment on above: Order Comment: Specimen Type : BLOOD SPECIMENOrdering Facility: [facility] Address: [address] Performed By: #### 59021-7 # ###[facility] LABCLIA [id number] [place] [address] [place] Chloride [Moles/Vol] 82 mmol/L Low 97-105 [facility] Comment on above: Order Comment: Specimen Type : BLOOD SPECIMENOrdering Facility: [facility] Address: [address] [place], [place] [id number] Performed By: #### 58936-2 # ###[facility] LABCLIA [id number] [place] [address] [place] CO2 [Moles/Vol] 29 mmol/L Normal 22-30 [facility] Comment on above: Order Comment: Specimen Type : BLOOD SPECIMENOrdering Facility: [facility] Address: [address] [place] [address] Performed By: #### 22101-4 # ###[facility] LABIA [id number] [place] [address] [place] Creatinine [Mass/Vol] 2.32 mg/dL High 0.58-0.96 [facility] Comment on above: Order Comment: Specimen Type : BLOOD SPECIMENOrdering Facility: [facility] Address: [address] [place] [address] Performed By: #### 74804-5 # ###[facility] LABIA [id number] [place] [address] [place] ESTIMATED GLOMERULAR 26 mL/min/1.73m??? Low >=60 [facility] FILTRATION RATE Comment on above: Order Comment: Specimen Type : BLOOD SPECIMENOrdering Facility: [facility] Address: [address] [place] [address] Result Comment: Estimated Gl omerular Filtration Rate [...] accurately reflect actual GFR. Performed By: #### 60910-8 # ###[facility] LABIA [id number] [place] [address] [place] Glucose [Mass/Vol] 107 mg/dL High 74-99 [facility] Comment on above: Order Comment: Specimen Type : BLOOD SPECIMENOrdering Facility: [facility] Address: [address] [place] [address] Result Comment: The Prydeinig Diabetes Association (ADA) provides guidance for cutoff [...] Standards of Medical Care in Diabetes 2016, [facility] Diabetes Association. Diabetes Care. 2016.39(Suppl 1). Performed By: #### 03773-9 # ###[facility] LABCLIA [id number] [place] [address] [place] Potassium [Moles/Vol] 5.6 mmol/L High 3.7-5.1 [facility] Comment on above: Order Comment: Specimen Type : BLOOD SPECIMENOrdering Facility: [facility] Address: [address] [place] [address] Performed By: #### 20929-5 # ###[facility] LABCLIA [id number] [place] [address] [place] Protein [Mass/Vol] 6.7 g/dL Normal 6.3-8.0 [facility] Comment on above: Order Comment: Specimen Type : BLOOD SPECIMENOrdering Facility: [facility] Address: [address] [place] [address] Performed By: #### 29296-7 # ###[facility] LABCLIA [id number] [place] [address] [place] Sodium [Moles/Vol] 128 mmol/L Low 136-144 [facility] Comment on above: Order Comment: Specimen Type : BLOOD SPECIMENOrdering Facility: [facility] Address: [address] [address] Performed By: #### 36280-1 # ###[facility] LABCLIA [id number] [place] [address] [place] Urea nitrogen [Mass/Vol] 71 mg/dL High 7-21 [facility] Comment on above: Order Comment: Specimen Type : BLOOD SPECIMENOrdering Facility: [facility] Address: [address] [place] [address] Performed By: #### 74525-2 # ###[facility] LABCLIA [id number] [place] [address] [place] HbA1c (Bld) on 11-08-2022 Average glucose Estimated from glycated 235 mg/dL Normal [facility] hemoglobin (Bld) [Mass/Vol] Comment on above: Order Comment: Specimen Type : BLOOD SPECIMENOrdering Facility: [facility] Address: [address] [place] [address] Result Comment: eAG: (Estima mitul average glucose) is a calculated value from HgbA1c and is rep resentative of the average blood glucose level in the last 2- 3 month period. Performed By: #### 13149-1 # ###[facility] LABCLIA [id number] [address] [place] HbA1c (Bld) [Mass fraction] 9.8 % High 4.3-5.6 [facility] Comment on above: Order Comment: Specimen Type : BLOOD SPECIMENOrdering Facility: [facility] Address: [address] [place] [address] Result Comment: Prydeinig Richard betes Association guidelines indicate that patients with HgbA1c in the range 5.7-6.4% are at increased risk for development of diab etes, and intervention by lifestyle modification may be benefici al. HgbA1c greater or equal to 6.5% is considered diagnostic of richard betes. Performed By: #### 75172-3 # ###[facility] LABCLIA [id number] [facility] [place] [address] [place] CNOV on 11-06-2022 CNOV Normal [facility] CNPN on 11-05-2022 CNPN Normal [facility] CNPN on 10-22-2022 CNPN Normal [facility] CNPN on 10-21-2022 CNPN Normal [facility] MAGNESIUM BLD on 10-19-2022 Magnesium [Mass/Vol] 2.0 mg/dL 1.7 - 2.3 mg/dL [facility] PHOSPHORUS INORGANIC on 10-19-2022 Phosphate [Mass/Vol] 3.4 mg/dL 2.7 - 4.8 mg/dL [facility] TSH BLD on 10-19-2022 TSH Qn 4.130 m[IU]/L 0.270 - 4.200 mIU/L [facility] CBC W Auto Differential panel (Bld) on 10-18-2022 Basophils (Bld) [#/Vol] 0.05 10*3/uL Normal <0.11 [facility] Comment on above: Order Comment: Specimen Type : BLOOD SPECIMENOrdering Facility: [facility] Address: [address] [place] [address] Performed By: #### 87237-3 # ###[facility] [id number] [place] [address] [place] Basophils/100 WBC (Bld) 0.6 % Normal [facility] Comment on above: Order Comment: Specimen Type : BLOOD SPECIMENOrdering Facility: [facility] Address: [address] [place], [place] [phone] Performed By: #### 53645-8 # ###[facility] [id number] [place] [address] [place] Differential cell count method Nom (Bld) Auto Normal [facility] Comment on above: Order Comment: Specimen Type : BLOOD SPECIMENOrdering Facility: [facility] Address: [address] [place], [place] [phone] Performed By: #### 05417-5 # ###[facility] MILLTOWNCLIA [id number] [place] [address] [place] Eosinophils (Bld) [#/Vol] 0.25 10*3/uL Normal <0.46 [facility] Comment on above: Order Comment: Specimen Type : BLOOD SPECIMENOrdering Facility: [facility] Address: [address] [place] [address] Performed By: #### 93003-6 # ###[facility] MILLWNCLIA [id number] [place] [address] [place] Eosinophils/100 WBC (Bld) 2.8 % Normal [facility] Comment on above: Order Comment: Specimen Type : BLOOD SPECIMENOrdering Facility: [facility] Address: [address] [place] [address] Performed By: #### 33070-5 # ###[facility]CL[facility] [id number] [place] [address] [place] Erythrocyte distribution width (RBC) 17.0 % High 11.5 -15.0 [facility] [Ratio] Comment on above: Order Comment: Specimen Type : BLOOD SPECIMENOrdering Facility: [facility] Address: [address] [place] [address] Performed By: #### 89116-3 # ###[facility] MILLWNCLIA [id number] [address] [place] Hematocrit (Bld) [Volume fraction] 43.7 % Normal 36.0-4 6.0 [facility] Comment on above: Order Comment: Specimen Type : BLOOD SPECIMENOrdering Facility: [facility] Address: [address] [place] [address] Performed By: #### 78741-4 # ###[facility] MILLWNCLIA [id number] [place] [address] [place] Hemoglobin (Bld) [Mass/Vol] 12.9 g/dL Normal 11.5-15.5 [facility] Comment on above: Order Comment: Specimen Type : BLOOD SPECIMENOrdering Facility: [facility] Address: [address] [place] [address] Performed By: #### 18362-4 # ###[facility]PITALWVTLIA [id number] [place] [address] [place] Immature granulocytes (Bld) 0.08 10*3/uL Normal <0.10 [facility] [#/Vol] Comment on above: Order Comment: Specimen Type : BLOOD SPECIMENOrdering Facility: [facility] Address: [address] [place] [address] Performed By: #### 55670-2 # ###[facility]ITALA [id number] [place] [address] [place] Immature granulocytes/100 WBC (Bld) 0.9 % Normal [facility] Comment on above: Order Comment: Specimen Type : BLOOD SPECIMENOrdering Facility: [facility] Address: [address] [place] [address] Performed By: #### 94155-1 # ###[facility] [id number] [place] [address] [place] Lymphocytes (Bld) [#/Vol] 1.57 10*3/uL Normal 1.00-4.00 [facility] Comment on above: Order Comment: Specimen Type : BLOOD SPECIMENOrdering Facility: [facility] Address: [address] [place] [address] Performed By: #### 98622-1 # ###[facility] [id number] [place] [address] [place] Lymphocytes/100 WBC (Bld) 17.8 % Normal [facility] Comment on above: Order Comment: Specimen Type : BLOOD SPECIMENOrdering Facility: [facility] Address: [address] [place] [address] Performed By: #### 68333-8 # ###[facility]AL[facility]NA [id number] [address] [place] MCH (RBC) [Entitic mass] 27.7 pg Normal 26.0-34.0 [facility] Comment on above: Order Comment: Specimen Type : BLOOD SPECIMENOrdering Facility: [facility] Address: [address] [place] [address] Performed By: #### 70096-1 # ###[facility] [id number] [place] [address] [place] MCHC (RBC) [Mass/Vol] 29.5 g/dL Low 30.5-36.0 [facility] Comment on above: Order Comment: Specimen Type : BLOOD SPECIMENOrdering Facility: [facility] Address: [address] [place] [address] Performed By: #### 12333-3 # ###[facility] HOSPITALShaq [id number] [address] [place] MCV (RBC) [Entitic vol] 93.8 fL Normal 80.0-100.0 [facility] Comment on above: Order Comment: Specimen Type : BLOOD SPECIMENOrdering Facility: [facility] Address: [address] [place] [address] Performed By: #### 24970-0 # ###[facility] [id number] [place] [address] [place] [facility] [place] Monocytes (Bld) [#/Vol] 0.38 10*3/uL Normal <0.87 [facility] Comment on above: Order Comment: Specimen Type : BLOOD SPECIMENOrdering Facility: [facility] Address: [address] [address] Performed By: #### 47925-6 # ###[facility] MILLTOWNCLIA [id number] [place] [address] [place] Monocytes/100 WBC (Bld) 4.3 % Normal [facility] Comment on above: Order Comment: Specimen Type : BLOOD SPECIMENOrdering Facility: [facility] Address: [address] [address] Performed By: #### 04226-3 # ###[facility] MILLTOWNCLIA [id number] [place] [address] [place] Neutrophils (Bld) [#/Vol] 6.50 10*3/uL Normal 1.45-7.50 [facility] Comment on above: Order Comment: Specimen Type : BLOOD SPECIMENOrdering Facility: [facility] Address: [address] [address] Performed By: #### 08618-1 # ###[facility]ITALNCLIA [id number] [place] [address] [place] Neutrophils/100 WBC (Bld) 73.6 % Normal [facility] Comment on above: Order Comment: Specimen Type : BLOOD SPECIMENOrdering Facility: [facility] Address: [address] [address] Performed By: #### 89529-7 # ###[facility] MILLWNCLIA [id number] [place] [address] [place] Nucleated RBC (Bld) [#/Vol] 10*3/uL Normal <0.01 [facility] Comment on above: Order Comment: Specimen Type : BLOOD SPECIMENOrdering Facility: [facility] Address: [address] [address] Performed By: #### 02069-3 # ###[facility] MILLWNCLIA [id number] [place] [address] [place] Nucleated RBC/100 WBC (Bld) [Ratio] 0.0 /100 WBC Normal [facility] Comment on above: Order Comment: Specimen Type : BLOOD SPECIMENOrdering Facility: [facility] Address: [address] [place] [address] Performed By: #### 47176-5 # ###[facility]ITALAL[facility]NA [id number] [place] [address] [place] Platelet mean volume (Bld) [Entitic 9.8 fL Normal 9.0-1 2.7 [facility] vol] Comment on above: Order Comment: Specimen Type : BLOOD SPECIMENOrdering Facility: [facility] Address: [address] [place] [address] Performed By: #### 64859-3 # ###[facility] HOSPITALKALIShaq [id number] [place] [address] [place] Platelets (Bld) [#/Vol] 188 10*3/uL Normal 150-400 [facility] Comment on above: Order Comment: Specimen Type : BLOOD SPECIMENOrdering Facility: [facility] Address: [address] [place] [address] Performed By: #### 78678-4 # ###[facility]ITALAYALAA [id number] [place] [address] [place] RBC (Bld) [#/Vol] 4.66 10*6/uL Normal 3.90-5.20 [facility] Comment on above: Order Comment: Specimen Type : BLOOD SPECIMENOrdering Facility: [facility] Address: [address] [place] [address] Performed By: #### 59337-7 # ###[facility]ITALKALILIA [id number] [place] [address] [place] WBC (Bld) [#/Vol] 8.83 10*3/uL Normal 3.70-11.00 [facility] Comment on above: Order Comment: Specimen Type : BLOOD SPECIMENOrdering Facility: [facility] Address: [place] [address] Performed By: #### 66112-7 # ###[facility] [id number] [place] [address] [place] Basophils (Bld) [#/Vol] 0.05 10*3/uL <0.11 k/uL [facility] Basophils/100 WBC (Bld) 0.6 % [facility] Differential cell count method Auto [facility] Nom (Bld) Eosinophils (Bld) [#/Vol] 0.25 10*3/uL <0.46 k/uL [facility] Eosinophils/100 WBC (Bld) 2.8 % [facility] Erythrocyte distribution width 17.0 % High 11.5 - 15. 0 % [facility] (RBC) [Ratio] Hematocrit (Bld) [Volume 43.7 % 36.0 - 46.0 % [facility] fraction] Hemoglobin (Bld) [Mass/Vol] 12.9 g/dL 11.5 - 15.5 g /dL [facility] Immature granulocytes (Bld) 0.08 10*3/uL <0.10 k/uL [facility] [#/Vol] Immature granulocytes/100 WBC 0.9 % [facility] (Bld) Lymphocytes (Bld) [#/Vol] 1.57 10*3/uL 1.00 - 4.00 k/u L [facility] Lymphocytes/100 WBC (Bld) 17.8 % [facility] MCH (RBC) [Entitic mass] 27.7 pg 26.0 - 34.0 pg C [facility] MCHC (RBC) [Mass/Vol] 29.5 g/dL Low 30.5 - 36.0 g/dL [facility] MCV (RBC) [Entitic vol] 93.8 fL 80.0 - 100.0 fL C [facility] Monocytes (Bld) [#/Vol] 0.38 10*3/uL <0.87 k/uL [facility] Monocytes/100 WBC (Bld) 4.3 % [facility] Neutrophils (Bld) [#/Vol] 6.50 10*3/uL 1.45 - 7.50 k/u L [facility] Neutrophils/100 WBC (Bld) 73.6 % [facility] Nucleated RBC (Bld) [#/Vol] <0.01 k/uL [facility] Nucleated RBC/100 WBC (Bld) 0.0 /100 WBC [facility] [Ratio] Platelet mean volume (Bld) 9.8 fL 9.0 - 12.7 fL [facility] [Entitic vol] Platelets (Bld) [#/Vol] 188 10*3/uL 150 - 400 k/uL [facility] RBC (Bld) [#/Vol] 4.66 10*6/uL 3.90 - 5.20 m/uL [facility] WBC (Bld) [#/Vol] 8.83 10*3/uL 3.70 - 11.00 k/uL [facility] CNOV on 10-18-2022 CNOV Normal [facility] CNPN on 10-18-2022 CNPN Normal [facility] Comprehensive metabolic 2000 panel on 12-18-2021 Albumin [Mass/Vol] 4.2 g/dL Normal 3.9-4.9 [facility] Comment on above: Order Comment: Specimen Type : BLOOD SPECIMENOrdering Facility: [facility] Address: [address] [address] Performed By: #### 00574-7 # ###[facility] [id number] [place] [address] [place] [facility] ALP [Catalytic activity/Vol] 68 U/L Normal 34-123 [facility] Comment on above: Order Comment: Specimen Type : BLOOD SPECIMENOrdering Facility: [facility] Address: [address] [address] Performed By: #### 72907-0 # ###[facility] [id number] [place] [address] [place] ALT [Catalytic activity/Vol] 24 U/L Normal 7-38 [facility] Comment on above: Order Comment: Specimen Type : BLOOD SPECIMENOrdering Facility: [facility] Address: [address] [address] Performed By: #### 96438-3 # ###[facility] RONAL MILLTOWNCLIA [id number] [place] [address] [place] Anion gap [Moles/Vol] 10 mmol/L Normal 9-18 [facility] Comment on above: Order Comment: Specimen Type : BLOOD SPECIMENOrdering Facility: [facility] Address: [address] [address] Performed By: #### 87036-1 # ###[facility] RONAL MILLTOWNCLIA [id number] [place] [address] [place] AST [Catalytic activity/Vol] 33 U/L Normal 13-35 [facility] Comment on above: Order Comment: Specimen Type : BLOOD SPECIMENOrdering Facility: [facility] Address: [address] [address] Performed By: #### 26328-8 # ###[facility] RONAL MILLTOWNCLIA [id number] [place] [address] [place] Bilirubin [Mass/Vol] 0.2 mg/dL Normal 0.2-1.3 [facility] Comment on above: Order Comment: Specimen Type : BLOOD SPECIMENOrdering Facility: [facility] Address: [address] [address] Performed By: #### 55073-4 # ###[facility] RONAL MILLTOWNCLIA [id number] [place] [address] [place] Calcium [Mass/Vol] 10.2 mg/dL Normal 8.5-10.2 [facility] Comment on above: Order Comment: Specimen Type : BLOOD SPECIMENOrdering Facility: [facility] Address: [address] [address] Performed By: #### 90976-1 # ###[facility] RONAL MILLTOWNCLIA [id number] [place] [address] [place] Chloride [Moles/Vol] 91 mmol/L Low 97-105 [facility] Comment on above: Order Comment: Specimen Type : BLOOD SPECIMENOrdering Facility: [facility] Address: [address] [place] [address] Performed By: #### 47227-0 # ###[facility] MILLTOWNCLIA [id number] [place] [address] [place] CO2 [Moles/Vol] 39 mmol/L High 22-30 [facility] Comment on above: Order Comment: Specimen Type : BLOOD SPECIMENOrdering Facility: [facility] Address: [address] [place] [address] Performed By: #### 60266-4 # ###[facility] [id number] [place] [address] [place] Creatinine [Mass/Vol] 0.95 mg/dL Normal 0.58-0.96 [facility] Comment on above: Order Comment: Specimen Type : BLOOD SPECIMENOrdering Facility: [facility] Address: [address] [place] [address] Performed By: #### 82989-0 # ###[facility]ITAL[facility] [id number] E [address] STATES [place] ESTIMATED GLOMERULAR 75 mL/min/1.73m??? Normal >=60 C [facility] FILTRATION RATE Comment on above: Order Comment: Specimen Type : BLOOD SPECIMENOrdering Facility: [facility] Address: [address] [place] [address] Result Comment: Estimated Gl omerular Filtration Rate [...] accurately reflect actual GFR. Performed By: #### 45791-5 # ###[facility] RONAL MILLTOWNCLIA [id number] [place] [address] [place] Glucose [Mass/Vol] 180 mg/dL High 74-99 [facility] Comment on above: Order Comment: Specimen Type : BLOOD SPECIMENOrdering Facility: [facility] Address: [place] [address] Result Comment: The Prydeinig Diabetes Association (ADA) provides guidance for cutoff [...] of Medical Care in Diabetes 2016, [facility] Diabetes Association. Diabetes Care. 2016.39(Suppl 1). Performed By: #### 14825-6 # ###[facility] MILLTOWNCLIA [id number] [place] [address] [place] Potassium [Moles/Vol] 4.3 mmol/L Normal 3.7-5.1 [facility] Comment on above: Order Comment: Specimen Type : BLOOD SPECIMENOrdering Facility: [facility] Address: [place] [address] Performed By: #### 72618-2 # ###[facility] MILLTOWNCLIA [id number] [place] [address] [place] Protein [Mass/Vol] 7.4 g/dL Normal 6.3-8.0 [facility] Comment on above: Order Comment: Specimen Type : BLOOD SPECIMENOrdering Facility: [facility] Address: [address] [address] Performed By: #### 58108-2 # ###[facility] RONAL MILLTOWNCLIA [id number] [place] [address] [place] Sodium [Moles/Vol] 140 mmol/L Normal 136-144 [facility] Comment on above: Order Comment: Specimen Type : BLOOD SPECIMENOrdering Facility: [facility] Address: [address] [place] [address] Performed By: #### 96801-6 # ###[facility] MILLTOWNCLIA [id number] [place] [address] [place] Urea nitrogen [Mass/Vol] 22 mg/dL High 7-21 [facility] Comment on above: Order Comment: Specimen Type : BLOOD SPECIMENOrdering Facility: [facility] Address: [address] [place] [address] Performed By: #### 23314-9 # ###[facility] RONAL MILLTOWNCLIA [id number] [place] [address] [place] Albumin [Mass/Vol] 4.2 g/dL 3.9 - 4.9 g/dL [facility] ALP [Catalytic 68 U/L 34 - 123 U/L [employer] [facility] rebecca activity/Vol] ALT [Catalytic 24 U/L 7 - 38 U/L [employer] [facility] rebecca activity/Vol] Anion gap [Moles/Vol] 10 mmol/L 9 - 18 mmol/L [facility] AST [Catalytic 33 U/L 13 - 35 U/L [employer] [facility] rebecca activity/Vol] Bilirubin [Mass/Vol] 0.2 mg/dL 0.2 - 1.3 mg/dL [facility] Calcium [Mass/Vol] 10.2 mg/dL 8.5 - 10.2 mg/dL [facility] Chloride [Moles/Vol] 91 mmol/L Low 97 - 105 mmol/L [facility] CO2 [Moles/Vol] 39 mmol/L High 22 - 30 mmol/L [facility] Creatinine [Mass/Vol] 0.95 mg/dL 0.58 - 0.96 mg/dL C [facility] Estimated Glomerular 75 mL/min/1.73m >=60 mL/min/1.73m [facility] Filtration Rate Glucose [Mass/Vol] 180 mg/dL High 74 - 99 mg/dL [facility] Potassium [Moles/Vol] 4.3 mmol/L 3.7 - 5.1 mmol/L Cl [facility] Protein [Mass/Vol] 7.4 g/dL 6.3 - 8.0 g/dL [facility] Sodium [Moles/Vol] 140 mmol/L 136 - 144 mmol/L [facility] Urea nitrogen [Mass/Vol] 22 mg/dL High 7 - 21 mg/dL [facility] ECG01 on 10-18-2022 ECG01 Normal [facility] [employer] Magnesium SerPl-mCnc on 10-18-2022 Magnesium [Mass/Vol] 2.0 mg/dL Normal 1.7-2.3 [facility] Comment on above: Order Comment: Specimen Type : BLOOD SPECIMENOrdering Facility: [facility] Address: [address] [id number] Performed By: #### 2777-1, 1 9123-08, 3016-01 ####[facility] LABCLIA [id number] [address] [address] [place] Phosphate SerPl-mCnc on 10-18-2022 Phosphate [Mass/Vol] 3.4 mg/dL Normal 2.7-4.8 [facility] Comment on above: Order Comment: Specimen Type : BLOOD SPECIMENOrdering Facility: [facility] Address: [place] [address] Performed By: #### 2777-1, 1 57, 3 ####[facility] LABCLIA [id number] [address] [address] [place] TSH SerPl-aCnc on 10-18-2022 TSH Qn 4.130 m[IU]/L Normal 0.270-4.200 [facility] Comment on above: Order Comment: Specimen Type : BLOOD SPECIMENOrdering Facility: [facility] Address: [address] [place] [address] Result Comment: If the patie nt is [...] Mei, et al. 2017 Guidelines of the Prydeinig T hyroid Association for the Diagnosis and Management of Thyroid Di sease during and the . Thyroid, 2017:27 :3:315-389. Performed By: #### 2777-1, 1 9123-9, 3016-3 ####[facility] LABCLIA [id number] [place] [address] [place] XR CHEST 2V FRONTAL/LAT on 10-18-2022 XR CHEST 2V FRONTAL/LAT Normal [facility] CNPN on 09-09-2022 CNPN Normal [facility] CNOV on 07-23-2022 CNOV Normal [facility] CNPN on 07-11-2022 CNPN Normal [facility] ALBUMIN/CREAT RATIO RND UR on 07-09-20 22 Albumin DL <= 20 mg/L (U) [Mass/Vol] 20.0 mg/L Normal [facility] Comment on above: Order Comment: Specimen Type : URINE SPECIMENOrdering Facility: [facility] Address: [address] [place] [address] Performed By: #### UACR #### [facility] LABCLIA [id number] [place] [address] [place] Albumin/Creatinine (U) [Mass ratio] 63 mg/g High <30 [facility] Comment on above: Order Comment: Specimen Type : URINE SPECIMENOrdering Facility: [facility] Address: [address] [place] [address] Result Comment: Adult Male a nd Female Nephrotic Criteria:<30 mg/g is considered normal to mild ly fpxmipecl19-879 mg/g is considered moderately increased>300 mg/ g is considered severely increasedKDIGO. (2013). KDIG O 2012 Clinical Practice Guideline for the Evaluation and Managemen t of Chronic Kidney Disease. Official Journal of the International Society of Nephrology, 3(1), 1-150. Performed By: #### UACR #### [facility] LABCLIA [id number] [place] [address] [place] Creatinine (U) [Mass/Vol] 31.5 mg/dL Normal 20.0-300.0 [facility] Comment on above: Order Comment: Specimen Type : URINE SPECIMENOrdering Facility: [facility] Address: [address] [place], [place] [address] Performed By: #### UACR #### [facility] LABCLIA [id number] [place] [address] [place] CNOV on 07-09-2022 CNOV Normal [facility] CNPN on 07-09-2022 CNPN Normal [facility] Comprehensive metabolic 2000 panel on 0 07-09-2022 Albumin [Mass/Vol] 4.1 g/dL Normal 3.9-4.9 [facility] Comment on above: Order Comment: Specimen Type : BLOOD SPECIMENOrdering Facility: [facility] Address: [address] [phone] Performed By: #### 41028-4, 55620-7 ####[facility] LABCLIA [id number] [address] [address] [place] ALP [Catalytic activity/Vol] 58 U/L Normal 34-123 [facility] Comment on above: Order Comment: Specimen Type : BLOOD SPECIMENOrdering Facility: [facility] Address: [address] Performed By: #### 17721-5, 45189-1 ####[facility] LABCLIA [id number] 0 [facility] [place] [id number] [place] ALT [Catalytic activity/Vol] 30 U/L Normal 7-38 [facility] Comment on above: Order Comment: Specimen Type : BLOOD SPECIMENOrdering Facility: [facility] Address: [address] [place], [place] [address] Performed By: #### 87937-2, 54057-1 ####[facility] LABCLIA [id number] 0 [facility] [place] [address] [place] Anion gap [Moles/Vol] 12 mmol/L Normal 9-18 [facility] Comment on above: Order Comment: Specimen Type : BLOOD SPECIMENOrdering Facility: [facility] Address: [address] [place], [place] [address] Performed By: #### 47481-6, 30854-9 ####[facility] LABCLIA [id number] 0 [facility] [place] [address] [place] AST [Catalytic activity/Vol] 38 U/L High 13-35 [facility] Comment on above: Order Comment: Specimen Type : BLOOD SPECIMENOrdering Facility: [facility] Address: [address] [place] [address] Performed By: #### 62924-6, 53531-2 ####[facility] LABCLIA [id number] 0 [facility] [place] [address] [place] Bilirubin [Mass/Vol] 0.3 mg/dL Normal 0.2-1.3 [facility] Comment on above: Order Comment: Specimen Type : BLOOD SPECIMENOrdering Facility: [facility] Address: [address] [place] [address] Performed By: #### 20200-2, 34058-5 ####[facility] LABCLIA [id number] [address] [address] [place] Calcium [Mass/Vol] 10.5 mg/dL High 8.5-10.2 [facility] Comment on above: Order Comment: Specimen Type : BLOOD SPECIMENOrdering Facility: [facility] Address: [address] [place] [address] Performed By: #### 89239-8, 84709-1 ####[facility] LABCLIA [id number] [address] [place] [id number] [place] Chloride [Moles/Vol] 93 mmol/L Low 97-105 [facility] Comment on above: Order Comment: Specimen Type : BLOOD SPECIMENOrdering Facility: [facility] Address: [address] [place] [address] Performed By: #### 16503-9, 81494-0 ####[facility] LABCLIA [id number] 0 [address] [id number] [place] CO2 [Moles/Vol] 33 mmol/L High 22-30 [facility] Comment on above: Order Comment: Specimen Type : BLOOD SPECIMENOrdering Facility: [facility] Address: [address] [place] [address] Performed By: #### 12843-5, 55836-2 ####[facility] LABCLIA [id number] 0 [facility] [address] [address] [place] Creatinine [Mass/Vol] 0.73 mg/dL Normal 0.58-0.96 [facility] Comment on above: Order Comment: Specimen Type : BLOOD SPECIMENOrdering Facility: [facility] Address: [address] [place] [address] Performed By: #### 82215-7, 64282-4 ####[facility] LABIA [id number] [address] ESTIMATED GLOMERULAR 104 mL/min/1.73m??? Normal >=60 [facility] FILTRATION RATE Comment on above: Order Comment: Specimen Type : BLOOD SPECIMENOrdering Facility: [facility] Address: [address] [place] [address] Result Comment: Estimated Gl omerular Filtration Rate [...] accurately reflect actual GFR. Performed By: #### 80550-9, 17084-2 ####[facility] LABIA [id number] [address] Glucose [Mass/Vol] 165 mg/dL High 74-99 [facility] Comment on above: Order Comment: Specimen Type : BLOOD SPECIMENOrdering Facility: [facility] Address: [address] [place] [address] Result Comment: The Prydeinig Diabetes Association (ADA) provides guidance for cutoff [...] Standards of Medical Care in Diabetes 2016, [facility] Diabetes Association. Diabetes Care. 2016.39(Suppl 1). Performed By: #### 13525-7, 73717-5 ####[facility] LABCLIA [id number] 0 [facility] [place] [id number] [place] Potassium [Moles/Vol] 4.6 mmol/L Normal 3.7-5.1 [facility] Comment on above: Order Comment: Specimen Type : BLOOD SPECIMENOrdering Facility: [facility] Address: [address] [place], [place] [address] Performed By: #### 86042-2, 24723-5 ####[facility] LABCLIA [id number] 0 [place] [address] [place] Protein [Mass/Vol] 7.3 g/dL Normal 6.3-8.0 [facility] Comment on above: Order Comment: Specimen Type : BLOOD SPECIMENOrdering Facility: [facility] Address: [address] [place], [place] [address] Performed By: #### 21342-4, 19122-9 ####[facility] LABCLIA [id number] 0 [place] [address] [place] Sodium [Moles/Vol] 138 mmol/L Normal 136-144 [facility] Comment on above: Order Comment: Specimen Type : BLOOD SPECIMENOrdering Facility: [facility] Address: [address] [place], [place] [address] Performed By: #### 99484-9, 54434-8 ####[facility] LABCLIA [id number] 0 [place] [address] [place] Urea nitrogen [Mass/Vol] 11 mg/dL Normal 7-21 [facility] Comment on above: Order Comment: Specimen Type : BLOOD SPECIMENOrdering Facility: [facility] Address: [address] [place] [address] Performed By: #### 04683-6, 74982-9 ####[facility] LABCLIA [id number] 0 [facility] [place] [id number] [place] HbA1c (Bld) on 08-09-2022 Average glucose Estimated from glycated 232 mg/dL Normal [facility] hemoglobin (Bld) [Mass/Vol] Comment on above: Order Comment: Specimen Type : BLOOD SPECIMENOrdering Facility: [facility] Address: [address] [place] [address] Result Comment: eAG: (Estima mitul average glucose) is a calculated value from HgbA1c and is rep resentative of the average blood glucose level in the last 2- 3 month period. Performed By: #### 80078-6 # ###[facility] LABCLIA [id number] [place] [address] [place] HbA1c (Bld) [Mass fraction] 9.7 % High 4.3-5.6 [facility] Comment on above: Order Comment: Specimen Type : BLOOD SPECIMENOrdering Facility: [facility] Address: [address] [place], [place] [address] Result Comment: Prydeinig Richard betes Association guidelines indicate that patients with HgbA1c in the range 5.7-6.4% are at increased risk for development of diab etes, and intervention by lifestyle modification may be benefici al. HgbA1c greater or equal to 6.5% is considered diagnostic of richard betes. Performed By: #### 89593-0 # ###[facility] LABCLIA [id number] [place] [address] [place] NT-proBNP [facility] on 07-09-2022 Natriuretic peptide.B prohormone 55 pg/mL Normal <125 [facility] N-Terminal [Mass/Vol] Comment on above: Order Comment: Specimen Type : BLOOD SPECIMENOrdering Facility: [facility] Address: [address] [place] [address] Performed By: #### 18111-4, 11190-3 ####[facility] LABCLIA [id number] [address] [place] XR CHEST 2V FRONTAL/LAT on 07-09-2022 XR CHEST 2V FRONTAL/LAT Normal [facility] CNPN on 07-03-2022 CNPN Normal [facility] CNPN on 06-28-2022 CNPN Normal [facility] CNPN on 2022 CNPN Normal [facility] CNPN on 06-20-2022 CNPN Normal [facility] CNPN on 06-13-2022 CNPN Normal [facility] CNPTOUTREACH on 05-29-2022 CNPTOUTREACH Normal [facility] CNPN on 04-09-2022 CNPN Normal [facility] CNPN on 04-03-2022 CNPN Normal [facility] CNPN on 03-29-2022 CNPN Normal [facility] CNPN on 03-28-2022 CNPN Normal [facility] CNPN on 03-20-2022 CNPN Normal [facility] CNOV on 03-19-2022 CNOV Normal [facility] Comprehensive metabolic 2000 panel on 03-19-2022 Albumin [Mass/Vol] 4.0 g/dL Normal 3.9-4.9 [facility] Comment on above: Order Comment: Specimen Type : BLOOD SPECIMENOrdering Facility: [facility] Address: [address] [place] [address] Performed By: #### 00891-2 # ###[facility] LIMAIA [id number] [place] [address] [place] ALP [Catalytic activity/Vol] 71 U/L Normal 34-123 [facility] Comment on above: Order Comment: Specimen Type : BLOOD SPECIMENOrdering Facility: [facility] Address: [address] [place] [address] Performed By: #### 43[address]-6 # ###[facility] LABIA [id number] [place] [address] [place] ALT [Catalytic activity/Vol] 22 U/L Normal 7-38 [facility] Comment on above: Order Comment: Specimen Type : BLOOD SPECIMENOrdering Facility: [facility] Address: [address] [place], [place] [address] Performed By: #### 49554-1 # ###[facility] LABCLIA [id number] [place] [address] [place] Anion gap [Moles/Vol] 10 mmol/L Normal 9-18 [facility] Comment on above: Order Comment: Specimen Type : BLOOD SPECIMENOrdering Facility: [facility] Address: [address] [place], [place] [address] Performed By: #### 57898-1 # ###[facility] LABCLIA [id number] [place] [address] [place] AST [Catalytic activity/Vol] 30 U/L Normal 13-35 [facility] Comment on above: Order Comment: Specimen Type : BLOOD SPECIMENOrdering Facility: [facility] Address: [address] [place], [place] [address] Performed By: #### 65202-9 # ###[facility] LABCLIA [id number] [place] [address] [place] Bilirubin [Mass/Vol] 0.2 mg/dL Normal 0.2-1.3 [facility] Comment on above: Order Comment: Specimen Type : BLOOD SPECIMENOrdering Facility: [facility] Address: [address] [place] [address] Performed By: #### 73474-1 # ###[facility] LABCLIA [id number] [place] [address] [place] Calcium [Mass/Vol] 9.8 mg/dL Normal 8.5-10.2 [facility] Comment on above: Order Comment: Specimen Type : BLOOD SPECIMENOrdering Facility: [facility] Address: [address] [place], [place] [id number] Performed By: #### [id number] # ###[facility] LABCLIA [id number] [place] [address] [place] Chloride [Moles/Vol] 95 mmol/L Low 97-105 [facility] Comment on above: Order Comment: Specimen Type : BLOOD SPECIMENOrdering Facility: [facility] Address: [address] [place] [address] Performed By: #### 78906-1 # ###[facility] LABCLIA [id number] [place] [address] [place] CO2 [Moles/Vol] 33 mmol/L High 22-30 [employer] [facility] Comment on above: Order Comment: Specimen Type : BLOOD SPECIMENOrdering Facility: [facility] Address: [address] [place] [address] Performed By: #### 77883-0 # ###[facility] LABCLIA [id number] [place] [address] [place] Creatinine [Mass/Vol] 0.78 mg/dL Normal 0.58-0.96 [facility] Comment on above: Order Comment: Specimen Type : BLOOD SPECIMENOrdering Facility: [facility] Address: [address] [place] [address] Performed By: #### 05218-8 # ###[facility] LABIA [id number] [place] [address] [place] ESTIMATED GLOMERULAR 96 mL/min/1.73m??? Normal >=60 [facility] FILTRATION RATE Comment on above: Order Comment: Specimen Type : BLOOD SPECIMENOrdering Facility: [facility] Address: [address] [place] [address] Result Comment: Estimated Gl omerular Filtration Rate [...] accurately reflect actual GFR. Performed By: #### 63709-3 # ###[facility] LABIA [id number] [place] [address] [place] Glucose [Mass/Vol] 251 mg/dL High 74-99 [facility] Comment on above: Order Comment: Specimen Type : BLOOD SPECIMENOrdering Facility: [facility] Address: [address] [place], [place] [id number] Result Comment: The Prydeinig Diabetes Association (ADA) provides guidance for cutoff [...] of Medical Care in Diabetes 2016, [facility] Diabetes Association. Diabetes Care. 2016.39(Suppl 1). Performed By: #### [id number] # ###[facility] LABIA [id number] [place] [address] [place] Potassium [Moles/Vol] 4.9 mmol/L Normal 3.7-5.1 [facility] Comment on above: Order Comment: Specimen Type : BLOOD SPECIMENOrdering Facility: [facility] Address: [address] [id number] Performed By: #### 02523-2 # ###[facility] LABIA [id number] [place] [address] [place] Protein [Mass/Vol] 6.7 g/dL Normal 6.3-8.0 [facility] Comment on above: Order Comment: Specimen Type : BLOOD SPECIMENOrdering Facility: [facility] Address: [address] Performed By: #### 51548-8 # ###[facility] LABIA [id number] [place] [address] [place] Sodium [Moles/Vol] 138 mmol/L Normal 136-144 [facility] Comment on above: Order Comment: Specimen Type : BLOOD SPECIMENOrdering Facility: [facility] Address: [address] [place] [address] Performed By: #### 93882-7 # ###[facility] LABIA [id number] [place] [address] [place] Urea nitrogen [Mass/Vol] 13 mg/dL Normal 7-21 [facility] Comment on above: Order Comment: Specimen Type : BLOOD SPECIMENOrdering Facility: [facility] Address: [address] [place] [address] Performed By: #### 33664-9 # ###[facility] LIMAIA [id number] [place] [address] [place] HGB A1C on 03-19-2022 Average glucose Estimated from glycated 263 mg/dL Normal [facility] hemoglobin (Bld) [Mass/Vol] Comment on above: Order Comment: Specimen Type : BLOOD SPECIMENOrdering Facility: [facility] Address: [address] [place] [address] Result Comment: eAG: (Estima mitul average glucose) is a calculated value from HgbA1c and is rep resentative of the average blood glucose level in the last 2- 3 month period. Performed By: #### HBA1C ### #[facility] [id number] [place] [address] [place] HbA1c (Bld) [Mass fraction] 10.8 % High 4.3-5.6 [facility] Comment on above: Order Comment: Specimen Type : BLOOD SPECIMENOrdering Facility: [facility] Address: [address] [place] [address] Result Comment: Prydeinig Richard betes Association guidelines indicate that patients with HgbA1c in the range 5.7-6.4% are at increased risk for development of diab etes, and intervention by lifestyle modification may be benefici al. HgbA1c greater or equal to 6.5% is considered diagnostic of richard betes. Performed By: #### HBA1C ### #[facility] LABCLIA [id number] [place] [address] [place] UA DIP, URINE (POC) on 03-19-2022 BILIRUBIN UA (POCT) Negative Negative [facility] CLARITY UA (POCT) [facility] COLOR UA (POCT) Yellow [facility] inic GLUCOSE UA (POCT) 500 mg/dL Abnormal Negative mg/dL [facility] HEMOGLOBIN/BLOOD UA (POCT) Negative Negative [facility] KETONE UA (POCT) Negative Negative mg/dL [facility] LEUKOCYTES UA (POCT) Negative Negative [facility] NITRITE UA (POCT) Negative Negative [facility] PH UA (POCT) 7.0 4.5 - 8.0 [facility] c Protein Ql (U) Negative Negative mg/dL [facility] SPECIFIC GRAVITY UA (POCT) 1.020 1.005 - 1.030 [facility] UROBILINOGEN UA (POCT) 0.2 E.U./dL Normal E.U./dL [facility] CNPN on 03-05-2022 CNPN Normal [facility] Vital Signs Date Time Vital Sign Value Performing Clinician Facilit y 02-23-2023 Body temperature 98.29 [degF] [facility] 14:00 Work Phone: 02-23-2023 Diastolic blood 82 mm[Hg] [facility] 14: pressure Work Phone: 02-23-2023 Heart rate 84 /min Zahra Jackson RN [employer] [facility] 14:00 Work Phone: 02-23-2023 Respiratory rate 20 /min [facility] 14:000 Work Phone: 02-23-2023 SaO2% (BldA) [Mass 96 % Zahra Jackson RN [facility] 14: fraction] Work Phone: 02-23-2023 Systolic blood 138 mm[Hg] Zahra Jackson RN [facility] 14:040 pressure Work Phone: 02-18-2023 Diastolic blood 72 mm[Hg] Panfilo Oreilly MD [facility] 11: pressure Work Phone: 02-18-2023 Heart rate 99 /min Panfilo Oreilly MD [facility] 11: Work Phone: 02-18-2023 Respiratory rate 18 /min Panfilo Oreilly MD [facility] 11: Work Phone: 02-18-2023 SaO2% (BldA) [Mass 91 % Panfilo Oreilly MD [facility] 11: fraction] Work Phone: 02-18-2023 Systolic blood 128 mm[Hg] Panfilo Oreilly MD [facility] 11: pressure Work Phone: 12-30-2022 SaO2% (BldA) [Mass 93 % PANFILO OREILLY [facility] 13:37-0500 fraction] [facility] Comment on above: Order Comment: Specimen Type : ARTERIAL BLOOD SPECIMENOrdering Facility: [facility] Address: [address] [place] [address] Performed By: #### ALLBG ### #[facility]ORY[facility] [id number] [place] [address] [facility] 12-27-2022 07:00-0500 SaO2% (BldA) [Mass 97 % PANFILO VU [facility] fraction] [facility] Comment on above: Order Comment: Specimen Type : ARTERIAL BLOOD SPECIMENOrdering Facility: [facility] Address: [address] [place] [address] Performed By: #### ALLBG ### #[facility]ORYCLIA [id number] [place] [address] [facility] 12-25-2022 13:42-0500 SaO2% (BldA) [Mass 97 % CHRISTOPHER B HORACE [facility] fraction] [facility] Comment on above: Order Comment: Specimen Type : ARTERIAL BLOOD SPECIMENOrdering Facility: [facility] Address: [address] [place] [address] Performed By: #### ALLBG ### #[facility]ORYCLIA [id number] [place] [address] [facility] 12-25-2022 10:54-0500 SaO2% (BldA) [Mass 99 % CHRISTOPHER B LEONLEY [facility] fraction] [facility] Center Comment on above: Order Comment: Specimen Type : ARTERIAL BLOOD SPECIMENOrdering Facility: [facility] Address: [address] [place] [address] Performed By: #### ALLBG ### #[facility]ORYCLIA [id number] [place] [address] [facility] 12-25-2022 08:26-0500 SaO2% (BldA) [Mass 96 % CHRISTOPHER B HORACE [facility] fraction] [facility] Center Comment on above: Order Comment: Specimen Type : ARTERIAL BLOOD SPECIMENOrdering Facility: [facility] Address: [address] [place] [address] Performed By: #### ALLBG ### #[facility]ORYCLIA [id number] [place] [address] [facility] 10-18-2022 Body temperature 96.8 [degF] Panfilo Oreilly MD [facility] 10:41050 Work Phone: 10-18-2022 Body weight 178.9 kg Panfilo Oreilly MD [facility] 10:410500 Work Phone: 10-18-2022 Diastolic blood 70 mm[Hg] Panfilo Oreilly MD [facility] 10:41050 pressure Work Phone: 10-18-2022 Heart rate 100 /min Panfilo Oreilly MD [facility] 10:410500 Work Phone: 10-18-2022 Respiratory rate 20 /min Panfilo Oreilly MD [facility] 10:410500 Work Phone: 10-18-2022 SaO2% (BldA) [Mass 97 % Panfilo Oreilly MD [facility] 10:410500 fraction] Work Phone: 10-18-2022 Systolic blood 124 mm[Hg] Panfilo Oreilly MD [facility] 10:410500 pressure Work Phone: 07-23-2022 Body height 166.4 cm Berenice Bauman MD [facility] 10: Work Phone: 07-23-2022 Body temperature 98.2 [degF] Berenice Bauman MD [facility] 10: Work Phone: 07-23-2022 Body weight 176.45 kg Berenice Bauman MD [facility] 10: Work Phone: 07-23-2022 Diastolic blood 71 mm[Hg] Berenice Bauman MD [facility] 10: pressure Work Phone: 07-23-2022 Heart rate 103 /min Berenice Bauman MD [facility] 10: Work Phone: 07-23-2022 SaO2% (BldA) [Mass 92 % Berenice Bauman MD [facility] 10:040 fraction] Work Phone: 07-23-2022 Systolic blood 136 mm[Hg] Berenice Bauman MD [facility] in 10: pressure Work Phone: 03-19-2022 Body weight 168.65 kg Hallie Martinez CLOTH WASHER BACK TENDER.NIKIA [facility] 10: Work Phone: 03-19-2022 Diastolic blood 82 mm[Hg] Hallie Carmonalogericka CLOTH WASHER BACK TENDERMUMTAZ [facility] 10: pressure Work Phone: 03-19-2022 Heart rate 83 /min Hallie Podlogar CLOTH WASHER BACK TENDER.MANAGER EQUIPMENT [facility] 10: Work Phone: 03-19-2022 Respiratory rate 20 /min Hallie Podlogar [employer]OTH WASHER BACK TENDER.MANAGER EQUIPMENT [facility] 10: Work Phone: 03-19-2022 SaO2% (BldA) [Mass 97 % Hallie Podlogar CLOTH WASHER BACK TENDER.CN P [facility] 10: fraction] Work Phone: 03-19-2022 Systolic blood 140 mm[Hg] Hallie Podlogar [employer]OTH WASHER BACK TENDER.MANAGER EQUIPMENT [facility] 10: pressure Work Phone: Encounters Encounter Date Encounter Type Care Provider Facility Start: 02-26-2023 Home visit Karyn [facility] End: 02-26-2023 Work Phone: Comment on above: [facility] [employer] OPERATOR CARE COORDINATION Start: 02-25-2023 Home visit Karyn Vernon [facility] End: 02-25-2023 Work Phone: Comment on above: [employer]LEY [employer]IS[employer] OPERATOR CARE COORDINATION Start: 02-24-2023 Telephone encounter Panfilo Guzman [facility] Work Phone: [place] Comment on above: Patient Update Start: 02-23-2023 Home visit Zahra Jackson RN [facility] rebecca Home Care End: 02-23-2023 Work Phone: Comment on above: SN SOC Start: 02-21-2023 [facility] Work [facility] Start: 02-21-2023 Telephone encounter Panfilo Oreilly MD [facility] Medicine Work Phone: [place] Comment on above: Fax last Office Vist Notes Transition Of Care (TCM Phar donnellson-Hospital discharge 02/20/23) Transition Of Care (TCM Init ial [facility] Discharge 02/20/23/) Start: 02-20-2023 Telephone encounter [facility] Comment on above: Home Care (MD to follow) Start: 02-19-2023 Telephone encounter Panfilo Oreilly MD [facility] Work Phone: [place] Comment on above: Results Start: 02-19-2023 Evaluation and PANFILO OREILLY Facility :[facility] End: 02-20-2023 management of inpatient Start: 02-18-2023 ambulatory PANFILO OREILLY Facility :[employer] End: 02-19-2023 [facility] Start: 02-18-2023 Patient encounter Panfilo Oreilly MD [facility] [place] End: 02-19-2023 procedure Work Phone: Comment on above: Abscess of groin, left (Prim shaina Dx); Non-healing open wound of le ft groin, initial encounter; Necrotizing soft tissue infe ction; Cellulitis of skin; Type 2 diabetes mellitus wit h diabetic polyneuropathy, with long-term current use of insulin (HCC) Start: 02-04-2023 Telephone encounter Panfilo Oreilly MD [facility] Medicine Work Phone: [place] Comment on above: [facility] PT Order Request Start: 02-03-2023 Refill Panfilo Oreilly MD [facility] [place] Work Phone: Comment on above: Refill Request Start: 01-30-2023 Telephone encounter Panfilo Oreilly MD [facility] Work Phone: [place] Comment on above: Appointment Start: 01-28-2023 [facility]ulatory [facility] Start: 01-28-2023 Follow-up encounter Raquel Payne RN Ambul atory Care Management Comment on above: Transition Of Care (TCM foll ow up/) Start: 01-21-2023 Telephone encounter Panfilo Oreilly MD [facility] Work Phone: [place] Comment on above: [facility] Start: 01-20-2023 Telephone encounter Brandi Fernando MD [facility] Work Phone: [facility] Comment on above: Refill Request Start: 01-17-2023 Patient Outreach Brissa iKlpatrick [facility] Pharm [facility] Work Phone: Comment on above: Transition Of Care (TCM Phar juan-Hospital discharge 01/16/23) Start: 01-15-2023 Telephone encounter Panfilo Oreilly MD [facility] Work Phone: [place] Comment on above: Patient Update Start: 01-14-2023 ambulatory Mimi Crowley RN IN[facility]AN RODGERS Start: 01-14-2023 Follow-up encounter Mimi Crowley RN Ambulat ory Care Management Comment on above: Transition Of Care (TCM foll ow-up readmitted to hospital) Start: 01-14-2023 Telephone encounter Panfilo Oreilly MD [facility] Work Phone: [place] Comment on above: Appointment Start: 01-13-2023 Evaluation and HUBERT LEBLANC Facility:[facility] End: 01-16-2023 management of inpatient Start: 01-13-2023 ambulatory PANFILO OREILLY Facility :[facility] End: 01-13-2023 Start: 01-12-2023 Emergency department PANFILO OREILLY [facility] ility:[facility] End: 01-13-2023 patient visit Start: 01-06-2023 Orders Only Panfilo Arizmendi MD [facility] Work Phone: Comment on above: Necrotizing soft tissue infe ction Medication Request Patient Update Start: 01-03-2023 Refill Panfilo Oreilly MD [facility] Work Phone: Comment on above: Refill Request Start: 01-02-2023 Patient Outreach Brissa Kilpatrick [facility] Work Phone: Comment on above: Transition Of Care (TCM Phar juan-Hospital discharge 01/01/23) Transition Of Care (TCM init ial outreach-dc'd from [facility] 01/01/23) Missed Appointment (Pharmacy visit reschedule) Start: 12-31-2022 Refill Panfilo Oreilly MD [facility] Work Phone: Comment on above: Refill Request Start: 12-27-2022 Refill Anabella Gaines CL[employer] WASHER BACK TENDER.MANAGER EQUIPMENT [facility] [place] Work Phone: Comment on above: Refill Request Start: 12-26-2022 Telephone encounter Panfilo Oreilly MD [facility] Work Phone: [place] Comment on above: Patient Update Start: 12-25-2022 ambulatory [place] [employer] WASHER BACK TENDER.MANAGER EQUIPMENT [facility] are Work Phone: Start: 12-25-2022 Evaluation and PANFILO OREILLY Facility :[place] End: 01-01-2023 management of General inpatient Start: 12-24-2022 Telephone encounter Panfilo Oreilly MD [facility] Work Phone: [place] Comment on above: Patient Update Start: 12-12-2022 Refill Panfilo Oreilly MD [facility] [place] Work Phone: Comment on above: Refill Request Medication Problem Start: 12-11-2022 ambulatory PANFILO OREILLY Facility :[facility] End: 12-11-2022 Start: 12-05-2022 Telephone encounter Robertlara Frostgo [facility] Med Clinic Work Phone: Comment on above: Missed Appointment Start: 11-27-2022 Refill Panfilo Oreilly MD [facility] [place] Work Phone: Comment on above: Refill Request Start: 11-11-2022 ambulatory PANFILO Saul Facility:[facility] End: 11-11-2022 [facility] Start: 11-11-2022 Telephone encounter Panfilo Oreilly MD [facility] [place] Work Phone: Comment on above: Results Start: 11-08-2022 ambulatory PANFILO Saul Facility:[facility] End: 11-09-2022 [facility] Start: 11-08-2022 ambulatory AURELIANO Dorys Facility:[facility] End: 11-08-2022 [facility] Start: 11-08-2022 Patient encounter Panfilo Arciniega [facility] [place] End: 11-08-2022 procedure Work Phone: Comment on above: Strep pharyngitis (Primary D x); Reactive airway disease with acute exacerbation, unspecified asthma severity, unspecified whether persistent; Tremor; LOGAN treated with BiPAP; Morbid obesity (HCC); Type 2 diabetes mellitus wit h diabetic polyneuropathy, with long-term current use of insulin (HCC); Episodic lightheadedness; Dehydration Start: 11-06-2022 ambulatory PANFILO Saul Facility:[facility] End: 11-06-2022 [facility] Start: 11-06-2022 Patient encounter Anita [facility] End: 11-06-2022 procedure Work Phone: Comment on above: Onychomycosis (Primary Dx); Pain in toe of left foot; Pain in toe of right foot; Other diabetic neurological complication associated with type 2 diabetes mellitus (HCC); Hyperkeratosis; Chronic venous insufficiency ; Diminished pulses in lower e xtremity Start: 11-05-2022 Telephone encounter Panfilo Oreilly MD [facility] Work Phone: [place] Comment on above: Orders Start: 10-30-2022 ambulatory [facility] Pharm Med Clin ic End: 10-30-2022 Work Phone: Comment on above: Type 2 diabetes mellitus wit h diabetic polyneuropathy, with long-term current use of insulin (HCC) (Primary Dx); History of tobacco use Start: 10-30-2022 Telemedicine [facility] End: 10-30-2022 consultation with Work Phone: patient Start: 10-22-2022 Telephone encounter Panfilo Oreilly MD [facility] Work Phone: [place] Comment on above: Patient Update Start: 10-21-2022 Telephone encounter Panfilo Oreilly MD [facility] Work Phone: [place] Comment on above: Results (No answer and VM no t set up. [employer] message sent to request patient call in for results on Lab and xray.) Start: 10-18-2022 ambulatory HODANASAD Dorys Facility:[facility] End: 10-18-2022 [facility] Start: 10-18-2022 ambulatory [facility] Facility:[facility] End: 10-18-2022 [facility] Start: 10-18-2022 Telephone encounter Panfilo Oreilly MD [facility] [place] Work Phone: Comment on above: Prescription Clarification Start: 10-18-2022 [facility] End: 10-18-2022 [facility] Start: 10-18-2022 Patient encounter Panfilo Oreilly MD [facility] End: 10-18-2022 procedure Work Phone: Comment on [...] Refill Panfilo Oreilly MD [facility] [place] Work Phone: Comment on above: Refill Request Start: 09-09-2022 Telephone encounter Panfilo Oreilly MD [facility] Medicine Work Phone: [place] Comment on above: Medication Problem Start: 09-05-2022 ambulatory PANFILO OREILLY Facility [facility] End: 09-06-2022 Hospital Start: 08-27-2022 Refill Panfilo Oreilly MD [facility] [place] Work Phone: Comment on above: Refill Request Start: 08-01-2022 ambulatory [facility] Pharm Med Clin ic End: 08-02-2022 Work Phone: Comment on above: Diabetes resources Type 2 diabetes mellitus wit h diabetic polyneuropathy, with long-term current use of ins ulin (HCC) (Primary Dx) Start: 08-01-2022 E-mail encounter from [facility] caregiver Work Phone: Start: 08-01-2022 Telemedicine [facility] [place] End: 08-01-2022 consultation with Work Phone: patient Start: 07-24-2022 Refill Panfilo Oreilly MD [facility] Work Phone: [place] Comment on above: Refill Request Start: 07-23-2022 ambulatory [facility] Facility:[facility] End: 07-23-2022 [facility] Start: 07-23-2022 Patient encounter Berenice Bauman MD General Surgery End: 07-23-2022 procedure Work Phone: Comment on above: Screening for colon cancer ( Primary Dx); Chest pain, unspecified type ; Morbid obesity (HCC) Start: 07-15-2022 [facility] Facility:[facility] End: 07-15-2022 [facility] Start: 07-11-2022 Telephone encounter [facility] Work Phone: Comment on above: Appointment Start: 07-09-2022 Telephone encounter Panfilo Oreilly MD [facility] Medicine Work Phone: [place] Comment on above: Medication Problem (Patient requesting all RX's for medications and diabetic supplies be sent to [facility] in [place].) Start: 07-09-2022 [facility] End: 07-09-2022 Hospital Start: 07-05-2022 Refill Hallie Martinez APRN.CNP [facility] [place] Work Phone: Comment on above: Refill Request; [...] 06/18/22) Start: 2022 Telephone encounter Robert Sanchez [facility] Work Phone: Comment on above: Missed Appointment Refill Request Start: 06-13-2022 Telephone encounter Robert Sanchez [facility] Work Phone: Comment on above: Missed Appointment Erroneous encounter-disregar d Start: 06-05-2022 Refill Panfilo Oreilly MD [facility] [place] Work Phone: Comment on above: Refill Request Start: 05-29-2022 ambulatory Panfilo Oreilly MD [facility] Medicine Main Work Phone: Camp[place] s Start: 05-02-2022 ambulatory Robert Sanchez [facility] Pharm Med Clin ic End: 05-03-2022 Work Phone: Comment on above: Type 2 diabetes mellitus wit h diabetic polyneuropathy, with long-term current use of ins ulin (HCC) (Primary Dx) Start: 05-02-2022 Telemedicine Robert Sanchez [facility] End: 05-02-2022 consultation with Work Phone: patient Start: 05-01-2022 Refill Panfilo Oreilly MD [facility] Work Phone: [place] Comment on above: Refill Request Start: 04-09-2022 Telephone encounter Panfilo Oreilly MD [facility] Medicine Work Phone: Felix griffin Comment on above: Patient Update Start: 04-03-2022 Telephone encounter Robert Sanchez [facility] Work Phone: Comment on above: Diabetes Start: 03-29-2022 Telephone encounter Robert Sanchez [facility] Work Phone: Comment on above: Medication Problem Start: 03-28-2022 Telephone encounter Panfilo Oreilly MD [facility] Medicine Work Phone: [place] Comment on above: Patient Update; Medication R equest Start: 03-28-2022 ambulatory PANFILO OREILLY Facility :[facility] End: 03-29-2022 Hospital Start: 03-28-2022 ambulatory [facility] Pharm Med Clin ic End: 03-28-2022 Work Phone: Comment on above: Type 2 diabetes mellitus wit h diabetic polyneuropathy, with long-term current use of ins ulin (HCC) (Primary Dx) Start: 03-28-2022 Telemedicine [facility] End: 03-28-2022 consultation with Work Phone: patient Start: 03-20-2022 Telephone encounter Hallie Martinez CLOTH WASHER BACK TENDER.NIKIA [facility] Work Phone: [place] Comment on above: Results Start: 03-19-2022 ambulatory HALLIE PODLOGAR Facility:[facility] End: 03-19-2022 Hospital Start: 03-19-2022 ambulatory HALLIE PODLOGAR Facility:[facility] End: 03-20-2022 Hospital Start: 03-19-2022 Patient encounter Hallie Carmonalogericka CLOTH WASHER BACK TENDER.NIKIA [facility] [place] End: 03-19-2022 procedure Work Phone: Comment on above: Type 2 diabetes mellitus wit h diabetic polyneuropathy, with long-term current use of insulin (HCC) (Primary Dx); Dysuria; LOGAN (obstructive sleep apnea ); Essential hypertension; Chronic respiratory failure with hypoxia (HCC); Hyperlipidemia, unspecified hyperlipidemia type Start: 03-05-2022 Telephone encounter Panfilo Guzman [facility] Work Phone: [place] Comment on above: insurance requests change in sulin Start: 01-29-2022 Telephone encounter Panfilo Guzman [facility] Work Phone: [place] Comment on above: Patient Request Start: 01-25-2022 Telephone encounter Hallie Martinez CLOTH WASHER BACK TENDER.NIKIA [facility] Work Phone: [place] Comment on above: medication instructions Patient Request Medication Question Start: 01-23-2022 Telephone encounter Hallie Martinez CLOTH WASHER BACK TENDER.NIKIA [facility] Work Phone: [place] Comment on above: Orders Start: 01-14-2022 Refill Panfilo Oreilly MD [facility] [place] Work Phone: Comment on above: Refill Request (SEE RX NOTES ) Start: 06-19-2021 Telephone encounter [facility] Work Phone: [place] Comment on above: Insurance Authorization (Neno Gore) Procedures Date Procedure Procedure Detail Performing Clin ician Start: 02-18-2023 Cul bact xcpt urine Tino Oreilly MD blood/stool aerobic isol Work Ph one: Start: 12-25-2022 Antibody screen PANFILO BARRAZA Comment on above: Order Comment: Specimen Type : BLOOD SPECIMENOrdering Facility: [facility] Address: [address] [place] [id number] Performed By: #### TSCR #### [facility] BLOOD BANKCLIA [id number] [place] [address] [place] [facility] Start: 07-15-2022 Echocardiography PANFILO VU Start: 03-19-2022 Urnls dip stick/tablet rgnt auto w/o Hallie Podlogar CLOTH WASHER BACK TENDER.MANAGER EQUIPMENT microscopy Work Phone: Start: 02-14-2021 Adult depression screening assessment Panfilo Oreilly MD Work Phone: Start: 10-09-2017 Mammography Panfilo barraza MD Work Phone: Plan of Treatment Date Care Activity Detail Author Start: PNEUMOCOCCAL (3 - PPSV23 PNEUMOCOCCAL (3 - [facility] 2042 if available, else PCV20) PPSV23 if available, else PCV20) Start: PNEUMOCOCCAL (3 - PPSV23 PNEUMOCOCCAL (3 - [facility] 2042 or PCV20) PPSV23 or PCV20) Start: Urine microalbumin DTAP,TDAP,TD (2 - Td or [facility] 07-01-2027 profile Tdap) Start: ANNUAL PCP TEAM CHRONIC ANNUAL PCP TEAM CHRONIC [facility] 02-19-2024 DISEASE VISIT DISEASE VISIT Start: BP CONTROLLED (<130/80) BP CONTROLLED (<130/80) [facility] 02-19-2024 Start: Hepatitis B surface LDL CHOLESTEROL [facility] 02-19-2024 antibody level Start: BP CONTROLLED (<130/80) BP CONTROLLED (<130/80) [facility] 01-13-2024 Start: 3 comp foot exam DIABETIC FOOT EXAM [facility] 12-25-2023 completed Start: ANNUAL PCP TEAM CHRONIC ANNUAL PCP TEAM CHRONIC [facility] 11-08-2023 DISEASE VISIT DISEASE VISIT Start: BP CONTROLLED (<130/80) BP CONTROLLED (<130/80) [facility] 11-08-2023 Start: ANNUAL PCP TEAM CHRONIC ANNUAL PCP TEAM CHRONIC [facility] 10-18-2023 DISEASE VISIT DISEASE VISIT Start: BP CONTROLLED (<130/80) BP CONTROLLED (<130/80) [facility] 10-18-2023 Start: 3 comp foot exam DIABETIC FOOT EXAM [facility] 07-09-2023 completed Start: ANNUAL PCP TEAM CHRONIC ANNUAL PCP TEAM CHRONIC [facility] 07-09-2023 DISEASE VISIT DISEASE VISIT Start: Hepatitis B screening URINE [facility] 07-09-2023 ALBUMIN:CREATININE RATIO Start: Hemoglobin HBA1C [facility] 05-21-2023 A1c/Hemoglobin.total in Blood Start: HPV TESTING HPV TESTING [facility] 04-30-2023 Start: PAP TESTING PAP TESTING [facility] 04-30-2023 Start: ANNUAL PCP TEAM CHRONIC ANNUAL PCP TEAM [facility] 03-19-2023 DISEASE VISIT DISEASE VISIT Start: Hemoglobin HBA1C [facility] 02-09-2023 A1c/Hemoglobin.total in Blood Start: Hemoglobin HBA1C [facility] 02-06-2023 A1c/Hemoglobin.total in Blood Start: 3 comp foot exam DIABETIC FOOT EXAM [facility] 01-23-2023 completed Start: ANNUAL PCP TEAM CHRONIC ANNUAL PCP TEAM CHRONIC [facility] 01-23-2023 DISEASE VISIT DISEASE VISIT Start: BP CONTROLLED (<130/80) BP CONTROLLED (<130/80) [facility] 01-23-2023 Start: BP CONTROLLED (<130/80) BP CONTROLLED (<130/80) [facility] 12-12-2022 Start: Hepatitis B surface LDL CHOLESTEROL [facility] 12-12-2022 antibody level Start: DEPRESSION ASSESSMENT DEPRESSION ASSESSMENT [facility] 12-01-2022 Start: 11-18-2022 Comprehensive metabolic COMP METABOLIC PANEL C [facility] End: 01-18-20231999 panel - Serum or Lab Routine KERRY (acute Wor k Phone: Plasma kidney injury) (HCC) Expected: 11/18/2022, Expires: 01/18/2023 Comment on above: Expected: 11/18/2022, s: 01/18/2023 Start: 10-31-2022 Basic metabolic BASIC METABOLIC PNL Lab [facility] End: 12-31-20221999 panel - Serum Routine Type 2 diabetes Work Phone: or Plasma mellitus with diabetic polyneuropathy, with long-term current use of insulin (HCC) Expected: 10/31/2022, Expires: 12/31/2022 Comment on above: Expected: 10/31/2022, s: 12/31/2022 Start: 10-09-2022 Hemoglobin HBA1C [facility] A1c/Hemoglobin.total in Blood Start: 08-01-2022 Hepatitis B screening URINE [facility] ALBUMIN:CREATININE RATIO Start: 08-01-2022 Influenza vaccination INFLUENZA (#1) [facility] Start: 2022 COLOGUARD (FIT-DNA) COLOGUARD (FIT-DNA) [facility] Start: 2022 Colonoscopy COLONOSCOPY [facility] Start: 2022 COLORECTAL CANCER SCREENING COLORECTAL CANCER [facility] SCREENING Start: [address] COLONOGRAPHY [facility] Start: 2022 FECAL OCCULT BLOOD FECAL OCCULT BLOOD [facility] Start: 2022 SIGMOIDOSCOPY SIGMOIDOSCOPY [facility] Start: 06-18-2022 Hemoglobin [facility] End: 08-18-2022 A1c/Hemoglobin.total in Blood Comment on above: Expected: 06/18/2022, s: 08/18/2022 Start: 03-19-2022 Comprehensive metabolic 2000 panel [facility] End: 05-19-2022 - Serum or Plasma Work Phone: Comment on above: Expected: 03/19/2022, s: 05/19/2022 Start: 03-19-2022 Hemoglobin A1c/Hemoglobin.total in [facility] End: 05-19-2022 Blood Work Phone: Comment on above: Expected: 03/19/2022, s: 05/19/2022 Start: 03-15-2022 COVID-19 VACCINE (3 - COVID-19 VACCINE (3 - [facility] Booster for Damir Booster for Damir series) series) Start: 03-12-2022 Hemoglobin HBA1C [facility] A1c/Hemoglobin.total in Blood Start: 02-14-2022 Adult depression DEPRESSION SCREENING [facility] screening assessment Start: 12-01-2021 DEPRESSION ASSESSMENT DEPRESSION ASSESSMENT [facility] Start: 10-09-2018 Mammography MAMMOGRAM [facility] Start: 08-31-2016 TWO PNEUMOVAX 5 YEARS TWO PNEUMOVAX 5 YEARS [facility] APART PRIOR TO AGE 65 APART PRIOR TO AGE 65 (#2) (#2) Start: 1996 HEPATITIS B (1 of 3 - HEPATITIS B (1 of 3 - [facility] Risk 3-dose series) Risk 3-dose series) Start: 1987 Hepatitis C antibody, DILATED RETINAL EXAM [facility] confirmatory test Start: 1977 HEPATITIS B (1 of 3 - HEPATITIS B (1 of 3 - [facility] 3-dose series) 3-dose series) Bacteria identified in ABSCESS AND WOUND [facility] Wound by Culture CULTURE WITH GRAM STAIN Work Ph one: Microbiology Routine Abscess of groin, left Non-healing open wound of left groin, initial encounter 02/18/2023 12:05 PM EDT ECG COMPLETE ECG COMPLETE ECG [facility] End: 10-18-2023 Routine Acute diastolic Work Rupali ne: CHF (congestive heart failure) (HCC) Other chest pain 1 Occurrences starting 10/18/2022 until 10/18/2023 Comment on above: 1 Occurrences starting 10/18 until 10/18/2023 EPIL EEG ROUTINE EPIL EEG ROUTINE [facility] End: 11-08-2023 NEUROLOGY TACO Tremor 1 Work Rupali ne: Occurrences starting 11/08/2022 until 11/08/2023 Comment on above: 1 Occurrences starting 11/08 until 11/08/2023 NM CARDIAC PERF NM CARDIAC PERF [facility] End: 11-17-2023 STRESS/PHARM STRESS/PHARM Radiology Work Phon e: TACO Acute diastolic CHF (congestive heart failure) (HCC) 1 Occurrences starting 10/18/2022 until 11/17/2023 Comment on above: 1 Occurrences starting 10/18 until 11/17/2023 OCCULT BLD EXAM-DIAG OCCULT BLD EXAM-DIAG Microb iology [facility] Routine Screening for colon Work Phone: cancer Ordered: 07/23/2022 Comment on above: Ordered: 07/23/2022 PVR ANK PRESS TAY PVR ANK PRESS TAY [facility] End: 11-06-2023 VAS LAB Vascular Lab Routine Work Phone: Onychomycosis Other diabetic neurological complication associated with type 2 diabetes mellitus (HCC) Diminished pulses in lower extremity 1 Occurrences starting 11/06/2022 until 11/06/2023 Comment on above: 1 Occurrences starting 11/06 until 11/06/2023 Screening mammography SHERYL SCREENING [facility] End: 06-28-2023 bi 2-view breast inc Radiology Routine Work Phon e: cad Encounter for screening mammogram for breast cancer 1 Occurrences starting 05/29/2022 until 06/28/2023 Comment on above: 1 Occurrences starting 05/29 until 06/28/2023 UA DIP, URINE (POC) UA DIP, URINE (POC) Lab Rout robbie [facility] Dysuria Ordered: 03/19/2022 Work Phone: Comment on above: Ordered: 03/19/2022 [facility] AK OR AK OR [facility] Immunizations Immunization Date Immunization Notes Care Provider Facility 12-12-2021 influenza, injectable, Panfilo nuñez MD [facility] quadrivalent, contains Work Phone: preservative 08-31-2020 influenza, injectable, Panfilo nuñez MD [facility] quadrivalent, contains Work Phone: preservative 08-31-2020 pneumococcal conjugate Panfilo nuñez MD [facility] vaccine, 13 valent Work Phone: 11-12-2019 influenza, injectable, Panfilo nuñez MD [facility] quadrivalent, contains Work Phone: preservative 12-16-2018 influenza, seasonal, Panfilo Oreilly MD [facility] injectable, preservative Work Phone: free 09-11-2017 influenza, seasonal, Panfilo Oreilly MD [facility] injectable Work Phone: 09-11-2017 influenza, seasonal, Panfilo Oreilly MD [facility] injectable, preservative Work Phone: free 07-01-2017 tetanus toxoid, reduced Panfilo chadwick MD [facility] diphtheria toxoid, and Work Phone: acellular pertussis vaccine, adsorbed 12-20-2013 influenza, seasonal, Panfilo Oreilly MD [facility] injectable Work Phone: 12-20-2013 influenza, seasonal, Panfilo Oreilly MD [facility] injectable, preservative Work Phone: free 08-31-[address] [facility] polysaccharide vaccine, Work Phone: 23 valent Payers Date Payer Category Payer Medicaid [employer] [id number] [facility] MEDICAID [id number] 2022-Present [phone] [address] [place] [address] Medicaid 2022 Medicaid [employer] [id number] [employer] [id number] 2022-2022 [id number] [phone] [address] [place] [address] Medicaid 2022 Medicare [id number] 2022 Medicare [id number] 2022 Medicare [id number] 2022 Medicaid MEDICAID [facility] MEDICAID [id number] 2022-2022 [id number] [address] [place] [address] Medicaid 2021 Medicare MEDICARE MEDICARE A AND B [id number] 2021-2021 [id number] [address] [address] [place] [address] Medicare Social History Date Type Detail Facility Start: 08-25-2019 Tobacco smoking status Smokes tobacco [facility] End: 11-06-2022 [facility] History of tobacco use Cigarette Smoker [facility] End: 09-08-2017 Start: 08-25-2019 Cigarettes smoked current 1 [facility] End: 01-13-2023 (pack per day) - Reported Start: 08-25-2019 Tobacco use and exposure Smokeless tobacco Aris reeder [facility] End: 01-13-2023 non-user Start: 12-12-2021 Alcohol intake Current drinker of [place] [facility] José nesbitt End: 11-06-2022 alcohol (finding) Start: 04-03-2017 History SDOH Alcohol rarely [facility] Comment Start: 1975 Sex Assigned At Not on file [facility] Start: 01-06-2022 Exposure to SARS-CoV-2 Not sure [facility] End: 10-18-2022 (event) Start: 01-23-2022 Tobacco smoking status Ex-smoker [facility] End: 01-13-2023 [facility] Start: 01-23-2022 Tobacco Comment d/c x2 wks [facility] End: 07-09-2022 Start: 04-03-2017 Tobacco Comment failed patches in the [facility] past History of tobacco use Current smoker [facility] Start: 07-22-2022 Exposure to SARS-CoV-2 Yes [facility] End: 08-01-2022 (event) Start: 08-23-2022 Exposure to SARS-CoV-2 Unable to assess [facility] End: 09-02-2022 (event) Start: 10-17-2022 History SDOH Alcohol 1 [facility] End: 01-15-2023 Frequency Start: 10-17-2022 History SDOH Alcohol Std 0 [facility] End: 11-02-2022 Drinks Start: 10-17-2022 History SDOH Social 5 [facility] End: 01-15-2023 Connections Phone Start: 10-17-2022 History SDOH Social 2 [facility] End: 01-15-2023 Connections Get Together Start: 10-17-2022 History SDOH Social 7 [facility] End: 11-02-2022 [facility] Living Start: 10-17-2022 History SDOH Physical 3 [facility] End: 11-02-2022 Activity DPW Start: 10-17-2022 History SDOH Financial 4 [facility] Start: 01-14-2023 Alcohol intake Ex-drinker (finding) [facility] End: 02-18-2023 Medical Equipment Procedure [...] migh t be different from the original. [facility] Notes 02/26/23 2;44 PM - 2:47 PM LS W called the pt. regarding the electrical logging operator requested orders for her to get a COLLECTIONS CURATOR to assist with bathing. The pt. stated she did not want a COLLECTIONS CURATOR once a week and wants her A olena hours under Waiver. TRAVELING ACCOUNTANT discussed that Brandy Ross [facility] Horticulture Teacher with Direction [facility] on [facility] discussed her getting the COLLECTIONS CURATOR until they find an Aide under Waiver. The pt. state d her daughter can assist her with bathing. The pt. stated that she received a phone call from [facility] regarding they needed the measurement for the lift chair. TRAVELING ACCOUNTANT di scussed that Brandy was senin g the measurements to Elaine and TRAVELING ACCOUNTANT could follow- up. The pt. stated Elaine was waiting on an Email with the measurements. The pt. supportive of that. The pt. to call TRAVELING ACCOUNTANT with any needs. 02/26/23 2:49 PM - 2:51 PM LS W called Brandy Ross [facility] Horticulture Teacher with [employer] on [facility] and left her a message that TRAVELING ACCOUNTANT spoke to the pt. and the electrical logging operator messaged the D r. regarding the pt. getting a COLLECTIONS CURATOR for bathing assist. The pt. does not want the COLLECTIONS CURATOR and stated her daughter could assist her with bathing. The pt. stated that [facility] called her and needing the measurements for her to get her lift chair. The pt. waiting to get the Aide under Waiver. TRAVELING ACCOUNTANT left her name and phone number. documented in this encounter 02-26-2023 Note [facility] 02-25-2023 Miscellaneous Formatting of this note migh t be different from the original. [facility] Notes 02/25/23 2:49 PM - 2:54 PM JORGE LUIS W received a phone call back from Brandy [facility] Waiver Horticulture Teacher with [employer] on Aging. She stated she is following-up wi th the regarding if ordsigifredo r faxed to a [employer] ([employer]) for the pt. to get a scooter. She stated she saw the pt. yesterday and got the measurements for the pt. to get a lif chair and is working with [facility] for the lift chair. The pt. receives Home Delivered Meals. The pt. to get an ER Medical Alert and Brandy stated they had been trying to reach the pt. and she informed the pt. to answer her phone . Brandy is trying to find an Aide for the pt. She stated she told the pt. to ask about getting a COLLECTIONS CURATOR to assist with bathing until she could get an Aide under Waiver. PER informed Brandy that PER will atilio k with the electrical logging operator r egarding a COLLECTIONS CURATOR for the pt. PER will continue to coordinate with Brandy as needed. 02/25/23 3:03 PM PER Emailed Bharat Gardner RN Case Manager - Aung, the pt. Macario Overton is on Waiver and her Waiver Horticulture Teacher asked about the pt. getting a COLLECTIONS CURATOR until she would get an Aide under Waiver. They cannot find a n Aide for the pt. yet. Thanks, documented in this encounter 02-25-2023 Miscellaneous Formatting of this note migh t be different from the original. [facility] Notes 02/25/23 10:00 AM - 10:06 AM TRAVELING ACCOUNTANT called [facility] and spoke to Fabienne Stevens regarding who the pt.'s Waiver Horticulture Teacher was and she stated Brandy Rsos with [facility] on Aging # [phone]. Fabienne stated she could transfer TRAVELING ACCOUNTANT to Brandy. TRAVELING ACCOUNTANT was transferred and TRAVELING ACCOUNTANT left Brandy Ross [facility] Horticulture Teacher a message that the pt. was active with [facility] 02/23 for Nursing. TRAVELING ACCOUNTANT stated she was calling to coordinate thw pt.'s care and her services in the home. The pt. asking about an Aide. power wheelchair and lift chair. TRAVELING ACCOUNTANT left her name and phone number for Brandy to call TRAVELING ACCOUNTANT back. 02/25/23 10:06 AM - 10:11 AM TRAVELING ACCOUNTANT called the pt. regarding TRAVELING ACCOUNTANT called her [facility] Waiver Horticulture Teacher Brandy Ross and left her a message. The pt. stated that Brandy came to see her yesterday. S he stated that Brandy is tryi ng to find her an Aide. TRAVELING ACCOUNTANT asked about the power wheelchair and lift chair. The pt. stated Brandy is looking into equipment for her, also. TRAVELING ACCOUNTANT asked the pt. if she received H ome Delivered Meals and she stated that she did. TRAVELING ACCOUNTANT asked the pt. if she had an ER Medical Alert and she stated that Brandy was ordering her one. TRAVELING ACCOUNTANT asked the pt. if she was new on Waiver and she state d she has been on Waiver for a couple of months. TRAVELING ACCOUNTANT asked the pt. if she had needed transportation to medical appointments. She stated if her daughter does not take her she uses transportation under he r [employer]. TRAVELING ACCOUNTANT p rovided the pt. with her name and phone number to call with any needs. TRAVELING ACCOUNTANT will follow-up with her. 02/25/[address] Fela Oreilly - TRAVELING ACCOUNTANT called the pt. regarding TRAVELING ACCOUNTANT called her [facility] Horticulture Teacher Brandy Ross and left her a message. The pt. stated that Brandy came to see her yesterday. She stat ed that Brandy is trying to find her an Aide. TRAVELING ACCOUNTANT asked about the power wheelchair and lift chair. The pt. stated Brandy is looking into equipment for her, also. TRAVELING ACCOUNTANT asked the pt. if she received Home Del ivered Meals and she stated that she did. TRAVELING ACCOUNTANT asked the pt. if she had an ER Medical Alert and she stated that Brandy was ordering her one. TRAVELING ACCOUNTANT asked the pt. if she was new on Waiver and she stated she h as been on Waiver for a couple of months. TRAVELING ACCOUNTANT asked the pt. if she had needed transportation to medical appointments. She stated if her daughter does not take her she uses tr ansportation under her [facility] Medicaid. TRAVELING ACCOUNTANT provided the pt. with her name and phone number to call with any needs. TRAVELING ACCOUNTANT will follow-up with her. Brandy Ross [facility] Horticulture Teacher w [facility] on Aging [phone]. Thank You, documented in this encounter 02-24-2023 Note [facility] 02-24-2023 Note HNO ID: [id number] [facility] Author: Panfilo Oreilly MD [facility] and Service: ? Author Type: Physician Type: Progress Notes Filed: 02/24/2023 8:05 AM Note Text: Reviewed. Needs to schedule TCM appointm ent still. 02-24-2023 Miscellaneous Formatting of this note migh t be different from the original. [facility] Reviewed. Formatting of this note might be differe nt from the original. FYI: Brandy, Horticulture Teacher [facility] called to let you know pt returned home on 02-20-23 from [facility] and has skilled care thru [facility] for wound care management. Keyonna Gross LPN documented in this encounter 02-23-2023 Miscellaneous Formatting of this note migh t be different from the original. [facility] Notes SITUATION: [facility] visit co mpleted today. Friend and [...] POC, visit set, and refe rral to PUL[facility] MORTISER OPERATOR, SN. See intervention summary for education d etails and skills performed. Plan of care and visit frequ ency established with patient and plan of care agreed upon. Patient demonstrated a need for further skilled SN services for chronic disease management & education, medication education, wound/skin care and safety. RECOMMENDATION: Visit Frequency: 2w2, 1w7 Need for additional services: Patient ag reeable to PUL[facility] MORTISER OPERATOR referrals. Additional concerns to be followed up on : NONE Next visit to focus on (be specific): wo udn care, DM, oxygen, edema documented in this encounter 02-21-2023 Note [facility] 02-21-2023 History of Present [facility] illness Narrative TRANSITIONAL CARE MANAGEMENT (TCM) COMMUNITY MONITORING PROGRAM Provider Action/FYI: Navigation Team Please assist with schedulin g TCM Hospital discharge follow up. TCM eligible through 03/06. Thank you [facility]- Friday Wound care: L groin wash wound [...] to discharge instructions. SUMMARY: Pt discharged from [facility] on 01/30 02/20. Admitted for: Cellulitis Contact made with patient: Yes Hi my name is Marixa braun RN and I am calling from the [facility] on behalf of your PCP, [...] will s end your request to a epic ambulatory analyst who will contact and assist you with that appointment. This will give you an opportunity to ask any questions or address any concerns you may have with your PCP. Inform the patient that if t hey have any questions or concerns prior to that appointment, to call their PCP's office right away. ACTION TAKEN: Patient desires an appointme nt - Routed to [facility] [[id number]] for scheduling telehealth visit (telephonic, virtual visit, [...] TCM Home Visit Referral Source of Stratification: [facility] Admission Status: Discharged Readmission Risk Score: 25 PAMELA Score: 4 Patient meets program referral criteria: No Patient does not qualify for High Risk TCM Home Visit program due to: Discharged home, does not meet program criteria Carlos Cline RN February 21, 2023 9:01 AM TRANSITIONAL CARE MANAGEMENT (TCM) [facility] MONITORING PROGRAM Provider Action/FYI: Outreach attempt #1 Unable to reach patient. Voicemail has not been set up. Unable to leave message. Will try again later Pt has no upcoming future appts SUMMARY: Pt discharged from [facility] on 01/30 02/20. Admitted for: Cellulitis SUMMARY OF WHAT HAPPENED DEREK BUSTAMANTE WAS IN THE HOSPITAL: Ms. Overton presented to an outside facility with purulent drainage from her wound. WBC was 11, and CT showed left upper thigh thickening and ulcerat ion with small amount of res idual subcutaneous gas. She was transferred to [facility] and surgery was consulted. Wound appears [...] migh t be different from the original. [facility] Notes Robert from [facility] called and reports they received the orders and demographic sheet. Faxing over last OV note to fax # [phone]. documented in this encounter 02-21-2023 Note [facility] 02-21-2023 Note [facility] 02-21-2023 Miscellaneous Formatting of this note migh t be different from the original. [facility] Notes Yes, will sign. Formatting [...] clinicians may als o obtain orders from [facility] Virtualist Providers Thank you and we would be happy to answe r any questions. Geeta Munguia LPN 02/20/2023 3:40 PM documented in this encounter 02-21-2023 History of Present [facility] illness Narrative TRANSITION CARE MANAGEMENT [...] name and . Summary: -Pt discharged from [facility] on 02/20/23. -Medication review done: Ken [...] idual subcutaneous gas. She was transferred to [facility] and surgery was consulted. Wound appears [...] once daily. flash glucose scanning reade r (Marco VascoSTYLE DOMENICO 14 DAY READER) 1 Device four [...] 50 points >150; TDD 150 units) Insulin [place] Bar[place], Disposable, (BD ULTRA-FINE GABINO PEN NEEDLE) 32 [...] for 10 doses. E-rx to DDM Confirms case picker, taking as directed Per discharge summary: Ms. Overton was started on an tibiotics for cellulitis and will continue on Bactrim and should continue a 5 day course at discharge WALKER ROLLATOR SEAT WITH 6 WHEELS - RE D Patient requires large seat Preferred pharmacy: [facility] [address] - [place] [address] - [address] [facility] [phone] [address] [facility] [address] [facility] [address] - [place] [phone] - [address] [facility] [phone] [address] [facility] [address] [id number] [place] [address] - [address] [facility] [phone] [id number] [address] [facility] [address] [facility] [address] [place] [phone] Estimated Creatinine Clearance: 196.2 mL /min (based [...] AM documented in this encounter 02-20-2023 Note [facility] 02-19-2023 Miscellaneous Formatting of this note migh t be different from the original. [facility] Notes Tried reaching patient, cordelia [...] time. documented in this encounter 02-18-2023 Note [facility] 02-18-2023 History of Present [facility] illness Narrative Chief Complaint No chief complaint on file. HPI Macario Overton is a 47 year old female who presents here today for Hospital Discharge Follow up. Accompanied today by daughter and grand daughter. Patient admitted to [facility] fro m 12/25 to 01/01 and [...] She was discharged in stable condition w [facility] wound care and follow up in 2 [...] ordered as pt was activ e with [facility] and [facility] [...] in ~ 1 weeks time. 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 Left, small lesion on CT Anxiety Cholecystitis s/p cholecystectomy Diabetes mellitus without mention of com plication Diabetic neuropathy ([facility]) Seeing Neurology Diastolic heart failure ([facility]) GERD (gastroesophageal reflux disease) History of abnormal cervical Pap smear History of tobacco use Hyperlipidemia Insomnia Microalbuminuria Morbid obesity ([facility]) Narcotic abuse ([facility]) Non-STEMI (non-ST elevated myocardial in farction) ([facility]) 2/2 respiratory illness LOGAN (obstructive sleep apnea) using CPAP, Dr. Dumont Pulmonary embolism ([facility]) Seasonal allergies Unspecified essential hypertension [...] by mouth once daily. flash glucose sensor ([employer] DOMENICO 14 DAY SENSOR) kit 1 Each [...] wheezing/shortness of breath. Use over 5-15minutes. Insulin La Barge, Disposable, (BD ULTRA-FINE GABINO PEN NEEDLE) 32 [...] which included preparing to see the patient, [id number] patient care, completing clinical documentation, obtaining and/or reviewing separately obtained history, performing a medically appropriate examination, counseling and educating the patient/family/caregiver, and ordering medications, tests, or procedures. Panfilo Oreilly MD documented in this encounter 02-04-2023 Miscellaneous Formatting of this note migh t be different from the original. [facility] Notes Josie, a [facility] nurse with [facility] calling to request Physical Therapy evaluation order for patient. States patient recently moved into a trailer and is having some difficulty getting around a nd also difficulty with endurance. Repor ts patient is on oxygen. Please call Josie back at [phone]. Thank you. documented in this encounter 02-03-2023 Note [facility] 02-03-2023 History of Present [facility] illness Narrative Per [facility] Eligibility report: patient meets [facility] criteria: MV >= 72 hours MICU stay. Discharge date prior to 01/06/2023 (01/30/2023 dashboard update); not contacted/enrolled in the [facility] Program for this 12/25-01/01/2023 [place] admission. PIR Enrollment Status [facility] Call Attempt None Enrolled in [facility] Program? No - Other documented in this encounter 02-03-2023 Miscellaneous Formatting of this note is d ifferent from the original. [facility] Notes Last appt: 11/08/22 - [...] migh t be different from the original. [facility] Notes Phoned patient and she [...] slot. documented in this encounter 01-28-2023 Note [facility] 01-28-2023 History of Present [facility] illness Narrative TRANSITION CARE MANAGEMENT (TCM) FOLLOW-UP NOTE Provider Action/MARSHALLI Called for TCM. No answer at this time. Voicemail box not set up, unable to leav e message. PCP 01/24 cancelled- rescheduled to 02/03 Patient identified by name and date of b irth: NO- no answer Summary: Pt discharged from [facility] on 01/16/23. Admitted for: Purulent drainage from wou nds. Concerns: No answer, unable to leave message Investment Professional plan for next outreach: Will follow up next week [employer] Education Ordered -: No Signature Raquel Payne RN January 28, 2023 documented in this encounter 01-21-2023 Miscellaneous Formatting of this note migh t be different from the original. [facility] Notes Zhane notified of providers message. Sandra Potts LPN Formatting of this note might be differe nt from the original. OK to resume intermediate. Keep f/u a ppointment as scheduled. Formatting of this note might be differe nt from the original. Zhane from [facility] tenders calls to report that patient discharged from hospital on 01/16/2023. Zhane asking if it is ok to resume intermediate services with patient tomorrow 01/22/2023. Please review and advise, Georgina Samayoa RN documented in this encounter 01-20-2023 Miscellaneous Formatting of this note migh t be different from the original. [facility] Notes Pt given message, states she can't take ibuprofen and will continue with the tylenol. Margarita TOWNSEND Formatting of this note might be differe nt from the original. I&D tay groin abscesses on 1 01/14/23- pt requesting refill on oxycodone for dressing changes. Uses pharmacy listed in chart. Margarita TOWNSEND documented in this encounter 01-20-2023 Note [facility] 01-17-2023 Note [facility] 01-17-2023 Note [facility] 01-17-2023 Note [facility] 01-17-2023 History of Present [facility] illness Narrative TRANSITION CARE MANAGEMENT [...] name and . Summary: -Pt discharged from [facility] on 01/16/23. -Medication review done: Ken [...] Care ordered as pt was active with [facility] for [facility] and [facility] [...] once daily. flash glucose scanning reade r (Marco VascoSTYLE DOMENICO 14 DAY READER) 1 Device four [...] Date Value 11/11/2022 10.1 12/12/2021 10.0 Insulin La Barge, Disposable, (BD ULTRA-FINE GABINO PEN NEEDLE) 32 [...] days. Taking as prescribed without any issues [facility] - Dispensed potassium chloride 20 mEq [...] days. Taking as prescribed without any issues [facility] - Dispensed WALKER ROLLATOR SEAT WITH 6 WHEELS - RE D Patient requires large seat Preferred pharmacy: [facility] [address] - [place] [address] - [address] - [phone] [address] [facility] [address] e- [facility] [address] - [place] [address] - [address] [facility] - [phone] [address] [facility] [address] e- [id number] [place] [address] - [address] [facility] - [phone] [address] [facility] [phone] [facility] [address] [place] [address] Estimated Creatinine Clearance: 124.1 mL /min (based [...] migh t be different from the original. [facility] Notes Reviewed and agree. Formatting of this note might be differe nt from the original. Carolee from [facility] and states that patient was directly admitted by her surgeon after appointment on 01/13/2023. Patient currently is in [facility]. When patient gets discharged asking fo r discharge paperwork to me faxed to . Georgina Samayoa, RN documented in this encounter 01-16-2023 Note [facility] 01-15-2023 Note [facility] 01-14-2023 Note [facility] 01-14-2023 Miscellaneous Formatting of this note migh t be different from the original. [facility] Notes Patient did not show [...] message. documented in this encounter 01-14-2023 Note [facility] 01-14-2023 Note [facility] 01-14-2023 History of Present [facility] illness Narrative TRANSITION CARE MANAGEMENT (TCM) FOLLOW-UP NOTE Provider Action/FYI Chart reviewed. Pt readmitte d to [facility] 01/13/23 for perineal wound infection. Name removed from Care Team d/t readmission. Signature Mimi Crowley RN January 14, 2023 documented in this encounter 01-13-2023 Note [facility] 01-13-2023 History of Past illness Narra tive Problem Noted Date Resolved Date Necrotizing fasciitis 01/13/2023 01/16/2023 Overview:Formatting of this note might b e different from the original. Pt did not have necrotizing fasciitis du ring this current hospitalization. Acute cholecystitis 11/06/2007 11/20/2021 documented as of this encounter (statuses as of 01/16/2023)[facility] 01-13-2023 History of Past illness Narrative Problem Noted Date Resolved Date Necrotizing fasciitis 01/13/2023 01/16/2023 Overview:Formatting of this note might b e different from the original. Pt did not have necrotizing fasciitis du ring this current hospitalization. Acute cholecystitis 11/06/2007 11/20/2021 documented as of this encounter (statuses as of 01/17/2023)[facility] 01-13-2023 History of Past illness Narrative Problem Noted Date Resolved Date Necrotizing fasciitis 01/13/2023 01/16/2023 Overview:Formatting of this note might b e different from the original. Pt did not have necrotizing fasciitis du ring this current hospitalization. Acute cholecystitis 11/06/2007 11/20/2021 documented as of this encounter (statuses as of 01/21/2023)[facility] 01-13-2023 History of Past illness Narrative Problem Noted Date Resolved Date Necrotizing fasciitis 01/13/2023 01/16/2023 Overview:Formatting of this note might b e different from the original. Pt did not have necrotizing fasciitis du ring this current hospitalization. Acute cholecystitis 11/06/2007 11/20/2021 documented as of this encounter (statuses as of 01/21/2023)[facility] 01-13-2023 History of Past illness Narrative Problem Noted Date Resolved Date Necrotizing fasciitis 01/13/2023 01/16/2023 Overview:Formatting of this note might b e different from the original. Pt did not have necrotizing fasciitis du ring this current hospitalization. Acute cholecystitis 11/06/2007 11/20/2021 documented as of this encounter (statuses as of 01/28/2023)[facility] 01-13-2023 History of Past illness Narrative Problem Noted Date Resolved Date Necrotizing fasciitis 01/13/2023 01/16/2023 Overview:Formatting of this note might b e different from the original. Pt did not have necrotizing fasciitis du ring this current hospitalization. Acute cholecystitis 11/06/2007 11/20/2021 documented as of this encounter (statuses as of 01/30/2023)[facility] 01-13-2023 History of Past illness Narrative Problem Noted Date Resolved Date Necrotizing fasciitis 01/13/2023 01/16/2023 Overview:Formatting of this note might b e different from the original. Pt did not have necrotizing fasciitis du ring this current hospitalization. Acute cholecystitis 11/06/2007 11/20/2021 documented as of this encounter (statuses as of 02/03/2023)[facility] 01-13-2023 History of Past illness Narrative Problem Noted Date Resolved Date Necrotizing fasciitis 01/13/2023 01/16/2023 Overview:Formatting of this note might b e different from the original. Pt did not have necrotizing fasciitis du ring this current hospitalization. Acute cholecystitis 11/06/2007 11/20/2021 documented as of this encounter (statuses as of 02/03/2023)[facility] 01-13-2023 History of Past illness Narrative Problem Noted Date Resolved Date Necrotizing fasciitis 01/13/2023 01/16/2023 Overview:Formatting of this note might b e different from the original. Pt did not have necrotizing fasciitis du ring this current hospitalization. Acute cholecystitis 11/06/2007 11/20/2021 documented as of this encounter (statuses as of 02/20/2023)[facility] 01-13-2023 History of Past illness Narrative Problem Noted Date Resolved Date Necrotizing fasciitis 01/13/2023 01/16/2023 Overview:Formatting of this note might b e different from the original. Pt did not have necrotizing fasciitis du ring this current hospitalization. Acute cholecystitis 11/06/2007 11/20/2021 documented as of this encounter (statuses as of 02/21/2023)[facility] 01-13-2023 History of Past illness Narrative Problem Noted Date Resolved Date Necrotizing fasciitis 01/13/2023 01/16/2023 Overview:Formatting of this note might b e different from the original. Pt did not have necrotizing fasciitis du ring this current hospitalization. Acute cholecystitis 11/06/2007 11/20/2021 documented as of this encounter (statuses as of 02/21/2023)[facility] 01-13-2023 History of Past illness Narrative Problem Noted Date Resolved Date Necrotizing fasciitis 01/13/2023 01/16/2023 Overview:Formatting of this note might b e different from the original. Pt did not have necrotizing fasciitis du ring this current hospitalization. Acute cholecystitis 11/06/2007 11/20/2021 documented as of this encounter (statuses as of 02/21/2023)[facility] 01-13-2023 History of Past illness Narrative Problem Noted Date Resolved Date Necrotizing fasciitis 01/13/2023 01/16/2023 Overview:Formatting of this note might b e different from the original. Pt did not have necrotizing fasciitis du ring this current hospitalization. Acute cholecystitis 11/06/2007 11/20/2021 documented as of this encounter (statuses as of 02/24/2023)[facility] 01-13-2023 History of Past illness Narrative Problem Noted Date Resolved Date Necrotizing fasciitis 01/13/2023 01/16/2023 Overview:Formatting of this note might b e different from the original. Pt did not have necrotizing fasciitis du ring this current hospitalization. Acute cholecystitis 11/06/2007 11/20/2021 documented as of this encounter (statuses as of 02/25/2023)[facility] 01-13-2023 History of Past illness Narrative Problem Noted Date Resolved Date Necrotizing fasciitis 01/13/2023 01/16/2023 Overview:Formatting of this note might b e different from the original. Pt did not have necrotizing fasciitis du ring this current hospitalization. Acute cholecystitis 11/06/2007 11/20/2021 documented as of this encounter (statuses as of 02/25/2023)[facility] 01-13-2023 History of Past illness Narrative Problem Noted Date Resolved Date Necrotizing fasciitis 01/13/2023 01/16/2023 Overview:Formatting of this note might b e different from the original. Pt did not have necrotizing fasciitis du ring this current hospitalization. Acute cholecystitis 11/06/2007 11/20/2021 documented as of this encounter (statuses as of 02/26/2023)[facility] 01-13-2023 History of Past illness Narrative Problem Noted Date Resolved Date Necrotizing fasciitis 01/13/2023 01/16/2023 Overview:Formatting of this note might b e different from the original. Pt did not have necrotizing fasciitis du ring this current hospitalization. Acute cholecystitis 11/06/2007 11/20/2021 documented as of this encounter (statuses as of 02/26/2023)[facility] 01-13-2023 Miscellaneous NotesTelephone Encounter - Lula Sarmiento LPN - 01/13/2023 1:04 PM EST Records from [facility] forwarded to Carolee as requested. Telephone Encounter - Sandra Potts LPN - 01/08/2023 4:24 PM EST Discharge summary requested from [facility] medical records at this time. Sandra Potts LPN Telephone Encounter - Irena Bland LPN - 01/06/2023 4:51 PM EST Carolee R with [facility] calls to report that pt was discharged from [facility] on 01/01/23. Carolee is asking for discharge summary to be faxed to her when office receives it. . Irena Bland LPN documented in this encounterReg[facility] Center02-07-2023 Miscellaneous Notes Telephone Encounter - Lula Sarmiento LPN - 01/07/2023 11:12 AM EST Patient has follow up visit 01/14/23 for 40 min-will see her as Hosp follow up and reschedule RTN follow up. Telephone Encounter - Panfilo Oreilly MD - 12/27/2022 8:01 AM EST Reviewed and agree. When she is finally discharged from [facility], will need f/u in 1 week for 40 minute OV. Telephone Encounter - Christi Barney RN - 12/26/2022 6:54 PM EST [facility] [place] [facility] corporate account director calling to let PCP know patient is in [facility] ICU with soft tissue infection. This nurse cancelled patient's hospital discharge follow up appointment from 12/20 hospital discharge which was scheduled for 12/27/22 with PCP. Christi Barney, RN documented in this encounterRegional [facility] Center02-06-2023 Miscellaneous Notes Telephone Encounter - [...] in chart. Margarita TOWNSEND documented in this encounterRegional Medical Center02-03-2023 Miscellaneous Notes Telephone Encounter - Sandra Potts LPN - 01/03/2023 2:09 PM EST [facility] 11/08/2022 NOV 01/14/2023 Sandra Potts LPN Telephone Encounter - Vanessa Ignacio [facility] - 01/03/2023 8:30 AM EST Patient has [...] this request. No need to notify patient. [facility] documented in this encounterRegional Medical Center02-02-2023 Miscellaneous Notes Telephone Encounter - [...] RPh 01/02/2023 2:42 PM documented in this encounterRegional [facility] Center[facility]-02-[facility] History of Present illness Tommy Crowley RN - 01/02/2023 11:19 AM EST TRANSITIONAL CARE MANAGEMENT (TCM) COMMUNITY MONITORING PROGRAM Provider Action/FYI: [facility] with patient, states pain is tolerable with pain medication, no sob, no N/V, tolerating diet, drinking fluids, blood glucose this morning was 128, staying with her niece for a week, is doing better. SUMMARY: Pt discharged from [facility] on 01/01/23. Admitted for: Necrotizing soft tissue infection Contact made with patient: Yes Hi my name is Mimi Crowley RN and I am calling from [facility] on behalf of your PCP, [...] like to speak with a social work steam clothes press operator to help give you support for any [...] I will send your request to a epic ambulatory analyst who will contact and assist you with [...] TCM Home Visit Referral Source of Stratification: [facility] Admission Status: Discharged Readmission Risk Score: 37 PAMELA Score: 4 Patient meets program referral criteria: No Patient does not qualify for High Risk TCM Home Visit program due to: Discharged home, does not meetprogram criteria Mimi Crowley RN January 02, 2023 11:25 AM documented in this encounterRegional Medical Center02-02-2023 History of Present illness Wil Kilpatrick, [facility] - 01/02/2023 10:24 AM EST TRANSITION [...] name and . Summary: -Pt discharged from [facility] on 01/01/23. -Medication review done: Partial [...] mouth once daily. flash glucose scanning reader (Marco VascoSTYLE DOMENICO 14 DAY READER) 1 Device four times daily. Taking as prescribed without any issues Discontinued: 12/31/2022 1:30 PM flash glucose sensor (FREESTYLE DOMENICO 14 DAY SENSOR) kit 1 Each once daily. Use 1 device for up to 14 days to monitor sugars 4 times per day. VigLinkoster furosemide (LASIX) 20 mg tablet Take 1 tablet by mouth twice daily. Take BID with 80 mg lasix to equal 100 mg BID furosemide (LASIX) 40 mg tablet Take 1-2 tablets BID for lower extremity edema Discontinued: 12/30/2022 8:05 AM gabapentin (NEURONTIN) 800 mg tablet TAKE 1 TABLET BY MOUTH THREE TIMES A DAY [employer] [place] insulin glargine U-300 conc (TOUJEO MAX U-300 SOLOSTAR) 300 unit/mL (3 mL) inpn Inject 105 Units subcutaneously twice daily. insulin lispro (HUMALOG KWIKPEN INSULIN) 100 unit/mL Inject 50 units plus sliding scale three times daily before meals (Sliding scale: 2 units for every 50 points >150; TDD 150 units) Hemoglobin A1C (%) Date Value 11/11/2022 10.1 12/12/2021 10.0 Insulin [place], Disposable, (BD ULTRA-FINE GABINO PEN NEEDLE) 32 [...] for pain for up to 5 days. [facility] [place] Counseled on AEs and [...] RED Patient requires large seat Preferred pharmacy: [facility] [place] - [id number] [place] [address] - [address] [phone] [address] [place] [address] e- [facility] [id number] [place] [address] - [address] [facility] - [phone] [address] [facility] [address] [facility] [place] [address] - [address] - [phone] [address] [place] [address] Estimated Creatinine Clearance: 128.2 mL/min (based on SCr of 0.9 mg/dL). Estimated Glomerular Filtration Rate (mL/min/1.73m ) Date Value 01/01/2023 81 eGFR- (no units) Date Value 01/23/2022 >60 Additional follow up: Next 5 Appointments Date and Time Provider Department Dept Phone 01/02/2023 2:00 PM Robert [facility] [phone] 01/14/2023 11:00 AM Panfilo Oreilly [facility] [phone] Interventions Made: Patient education/Medication counseling Pharmacist Recommendations Made None Care Coordination: None at this time Time spent on patient: 15-30 minutes Brissa Kilpatrick RPh January 02, 2023 10:25 AM documented in this encounterRegional Medical Center02-01-2023 [facility]01-31-2023 Miscellaneous Notes Telephone Encounter - Diana Mackenzie [employer] - 12/31/2022 1:26 PM EST Patient has [...] you. Diana Mackenzie LPN documented in this encounterRegional Medical Center01-31-2023 [facility]01-30-2023 [facility]01-29-2023 [facility]01-28-2023 [facility]01-28-2023 NoteHNO ID: [id number] Author: Interface Note Service: ? Author Type: ? Type: Progress Notes Filed: 12/28/2022 4:21 AM Note Text: Epic Scheduled Downtime: 12/28/2022 1:00:00 AM to 12/28/2022 3:56:[facility] Miscellaneous NotesTelephone Encounter - Silvino Martinez LPN - 12/27/2022 3:46 PM EST Patient phones requesting refills as follows: Requested Prescriptions Pending Prescriptions Disp Refills gabapentin (NEURONTIN) 800 mg tablet [Pharmacy Med Name: Gabapentin 800MG TABS] 90 tablet 2 Sig: TAKE 1 TABLET BY MOUTH THREE TIMES A DAY Please review and advise. Silvino Martinez LPN documented in this encounterRegional Medical Center01-27-2023 [facility]01-26-2023 [facility]01-26-2023 [facility]01-25-2023 [facility]01[facility]25-2023 L[facility]ie [facility]01-25-2023 [facility]01-25-2023 History of Present illness NarrativeDakraig Key APRN.NIKIA - 12/25/2022 2:22 AM EST Images from the original note were not included. Critical Care Transport Note Patient Name: Macario Overton Service Date: 12/25/2022 Referring Physician: Job Accepting Physician: Delfino Referring Facility: [facility] Accepting Facility: [facility] SUBJECTIVE/CHIEF COMPLAINT: left thigh abscess REASON [...] DM2, LOGAN, and NSTEMI. She presented to [place] ED on 12/25/2022 for evaluation of left thigh and labia drainage. Per report, patient was previously hospitalize with an KERRY but then discharged that week. Today she presented to her primary care which they sent her to ED for possible infection. In the ED, she was found to have air in her subcutaneous fat surrounding her thigh and labia area concerning for gangrene. For this reason, patient will need higher level of surgical intervention notavailable at [place]. At this time, the physician managing the patient requested transfer to [facility] for tertiary and/or quaternary services unavailable at the referring facility. Patient condition at time ofexam was: Acutely ill and emergent surgical intervention. Due to the unique circumstances of the patient, it was determined that this was the closest, most appropriate facility by referring physician. The physician managing the [facility] transport and treat the patient for the purpose of tertiary care, evaluation, and management of her surgical condition(s). Air medical transport was requested to reduce the ssp-pc-eawlhscq time, 20 minutes by air vs. 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 Left, small lesion on CT Anxiety Cholecystitis s/p cholecystectomy Diabetes mellitus without mention of complication Diabetic neuropathy ([facility]) Seeing Neurology Diastolic heart failure ([facility]) GERD (gastroesophageal reflux disease) History of abnormal cervical Pap smear History of tobacco use Hyperlipidemia Insomnia Microalbuminuria Morbid obesity ([facility]) Narcotic abuse ([facility]) Non-STEMI (non-ST elevated myocardial infarction) ([facility]) 2/2 respiratory illness LOGAN (obstructive sleep apnea) using CPAP, Dr. Dumont Pulmonary embolism ([facility]) Seasonal allergies Unspecified essential hypertension [...] 60 tablet^Rfl: 2 flash glucose scanning reader (Marco VascoSTYLE DOMENICO 14 DAY READER)^1 Device four times [...] daily with breakfast.^Disp: 30 tablet^Rfl: 5 Insulin [place] Bar[place], Disposable, (BD ULTRA-FINE GABINO PEN NEEDLE) 32 [...] For this reason she will transfer to [facility] for emergent OR. Gangrene to left thigh [...] VS en route - expedite transfer to [place] for further intervention The transport was completed without significant incident or change in the patient's status. The patient was transported to the [facility] by Rotor (Helicopter) for tertiary and/or quaternary evaluation and management of her Emergent Surgical condition(s). Upon arrival to the receiving facility, a meor-uy-qrky report was given to bedside nursing staff in ED and Resident / PA / BUSINESS SOLUTIONS ARCHITECT: Dr. Kelley . Patient care was transferred. [...] Jersey Key APRN.NIKIA Acute Care Nurse Practitioner [facility] Critical [facility] Team documented in this encounterRegional Medical Center01-24-2023 Miscellaneous Notes Telephone Encounter - Lula Sarmiento LPN - 12/24/2022 6:25 PM EST Patient stated she will go to [facility]. PCP updated. Telephone Encounter - Panfilo Oreilly [...] just ate two bologna sandwiches within the [id number] hour. Ate usual food amounts today. Pt [...] PCP can advise her or Robert Sanchez [facility]. Explained that message would be sent to Dr. Oreilly for review but will also forward to Robert. Please call pt with advise. Thank you. documented in this encounterRegional Medical Center01-13-2023 Miscellaneous Notes Telephone Encounter - Robertlara Frostronan [facility] - 12/13/2022 9:08 AM EST PharmD [...] Provider: PANFILO OREILLY Ordering User: ROBERT SANCHEZ [facility] Telephone Encounter - Christi Barney RN [...] know. Christi Barney RN documented in this encounterRegional Medical Center01-12-2023 Miscellaneous Notes Telephone Encounter - [...] and advise. Irina Soriano documented in this encounterRegional Medical Center01-05-2023 Miscellaneous Notes Telephone Encounter - [...] to do so. Will send strips to [facility] at her request. Robert Sanchez PharmD, [facility] Primary Care Clinical Pharmacist documented in this encounterRegional Medical Center12-28-2022 Miscellaneous Notes Telephone Encounter - [...] Thank you. Annie Neville documented in this encounterRegional Medical Center12-12-2022 Miscellaneous Notes Telephone Encounter - [...] function returns to normal. 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/2019 Left, small lesion on CT Anxiety Cholecystitis s/p cholecystectomy Diabetes mellitus without mention of complication Diabetic neuropathy ([facility]) Seeing Neurology Diastolic heart failure ([facility]) GERD (gastroesophageal reflux disease) History of abnormal cervical Pap smear History of tobacco use Hyperlipidemia Insomnia Microalbuminuria Morbid obesity ([facility]) Narcotic abuse ([facility]) Non-STEMI (non-ST elevated myocardial infarction) ([facility]) 2/2 respiratory illness LOGAN (obstructive sleep apnea) using CPAP, Dr. Dumont Pulmonary embolism ([facility]) Seasonal allergies Unspecified essential hypertension [...] tablet by mouth daily with breakfast. Insulin [place] Bar[place], Disposable, (BD ULTRA-FINE GABINO PEN NEEDLE) 32 [...] bedtime as needed. flash glucose scanning reader (Marco VascoSTYLE DOMENICO 14 DAY READER) 1 Device four times daily. fenofibrate nanocrystallized (TRICOR) 145 mg tablet Take 1 tablet by mouth once daily. flash glucose sensor (Marco VascoSTYLE DOMENICO 14 DAY SENSOR) kit 1 Each [...] Abs Lymph 1.00 - 4.00 k/uL 1.57 Putnam% % 4.3 Abs Putnam <0.87 k/uL 0.38 Eosin% % 2.8 Abs [...] smokingand schedule follow up visit with her managing member at [facility]. 3. Tremor - ICD9: 781.0, ICD10: R25.1 [...] which included preparing to see the patient, khat-kt-dsip patient care, completing clinical documentation, obtaining and/or reviewing separatelyobtained history, performing a medically appropriate examination, counseling and educating the patien t/family/caregiver, and ordering medications, tests, or procedures. 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 Left, small lesion on CT Anxiety Cholecystitis s/p cholecystectomy Diabetes mellitus without mention of complication Diabetic neuropathy ([facility]) Seeing Neurology Diastolic heart failure ([facility]) GERD (gastroesophageal reflux disease) History of abnormal cervical Pap smear History of tobacco use Hyperlipidemia Insomnia Microalbuminuria Morbid obesity ([facility]) Narcotic abuse ([facility]) Non-STEMI (non-ST elevated myocardial infarction) ([facility]) 2/2 respiratory illness LOGAN (obstructive sleep apnea) using CPAP, Dr. Dumont Pulmonary embolism ([facility]) Seasonal allergies Unspecified essential hypertension [...] tablet by mouth daily with breakfast. Insulin [place] Bar[place], Disposable, (BD ULTRA-FINE GABINO PEN NEEDLE) 32 [...] bedtime as needed. flash glucose scanning reader (Marco VascoSTYLE DOMENICO 14 DAY READER) 1 Device four [...] Objective: Patient presents to clinic ambulating in [facility] Constitutional: Pt is a well developed 47 [...] Skin is ruborous b/l. Non-Invasive Vascular Laboratory [facility] Lower Extremity Arterial Physiology Study Bilateral/Complete Date [...] Care Saba Brenner LPN documented in this encounterRegional Medical Center12-07-2022 InstructionsPatient InstructionsMadustin Mosley - 11/06/2022 [...] (or decreased sensation in your feet) a secy should always cut your toenails. Be Careful [...] Go to your health care provider or secy to treat these conditions. documented in this encounterRegional Medical Center12-06-2022 Miscellaneous Notes Telephone Encounter - [...] 3:16 PM EST Clarisa Quintero [facility] called in and was check on order [...] Please call and advise. documented in this encounterRegional Medical Center11-30-2022 NoteFort Hamilton Hospital11-30-2022 NoteFort Hamilton Hospital11-30-2022 History of Present illness Margarita Suero [facility] - 10/30/2022 1:00 PM EST Primary Care Pharmacy Visit CC (Reason for Consult): Diabetes Goal: A1c < 7% Collaborating Provider: Dr. Oreilly Last Provider Visit: 10/18/22 Macario Overton is a 47 year old female presenting for follow up visit by telephone. Patient consents to pharmacy collaborative practice agreement. Patient is presenting today for follow up pharmacotherapy management appointment for diabetes. 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 off a few [...] mellitus without mention of complication Diabetic neuropathy ([facility]) Seeing Neurology Diastolic heart failure ([facility]) GERD (gastroesophageal reflux disease) History of abnormal cervical Pap smear History of tobacco use Hyperlipidemia Insomnia Microalbuminuria Morbid obesity ([facility]) Narcotic abuse ([facility]) Non-STEMI (non-ST elevated myocardial infarction) ([facility]) 2/2 respiratory illness LOGAN (obstructive sleep apnea) using CPAP, Dr. Dumont Pulmonary embolism ([facility]) Seasonal allergies Unspecified essential hypertension [...] mouth once daily. flash glucose scanning reader (Marco VascoSTYLE DOMENICO 14 DAY READER) 1 Device four [...] 50 points >150; TDD 150 units) Insulin [place] Bar[place], Disposable, (BD ULTRA-FINE GABINO PEN NEEDLE) 32 [...] polyneuropathy, with long-term current use of insulin ([facility]) - ICD9: 250.60, 357.2, V58.67, [...] of instructions. Tessa Suero RPh, PharmD PGY1 Regional Sales Representative The majority of the pharmacy visit (> 50%) was spent counseling and/or coordinating care for the patient. interaction: telephonic time was 20 minutes. Robert Sanchez RPh - 10/30/2022 1:00 PM EST The patient's case was discussed with the pharmacy affairs assistant who interviewed the patient. Walton elements of history confirmed during office visit. The progress note reflects my input and comments. Robert Sanchez PharmD, [facility] Primary Care Clinical Pharmacist documented in this encounterRegional Medical Center11-22-2022 Miscellaneous Notes Telephone Encounter - [...] home. Requesting provider [facility] to have a [facility]. Clarisa reports that it will probably be denied butdaphnie would like to get the process started. Not pended. Patient has follow up appointment 11/08/2022. Marianne Grier RN documented in this encounterRegional Medical Center11-22-2022 Miscellaneous Notes Telephone Encounter - Mariam Meredith RN - 10/22/2022 10:28 AM EST Patient returned call and given both of provider's messages below with verbalized understanding. Telephone Encounter - Lula Sarmiento LPN - 10/21/2022 12:38 PM EST Please update patient with both messages below. Lab and xray results. Telephone Encounter - Lula Sarmiento LPN - [...] AM EST ----- Normal/stable labs. BNP from [facility] resulted at 11 which is normal. Recommend she continue higher dose lasix, low sodium diet, wear CPAP nightly as discussed. F/u with cardiology. Call if leg swelling notimproving with lasix or with weight increase as discussed in office. documented in this encounterRegional Medical Center11-18-2022 Miscellaneous Notes Telephone Encounter - Sandra Potts LPN - 10/18/2022 3:45 PM EST [facility] telephoned and made aware of TAMRA, MANAGER EQUIPMENT message. Read back. Will dispense for patient. Sandra Potts LPN Telephone Encounter - Hallie Martinez APRN.CNP - 10/18/2022 2:56 PM EST Fine to dispense 81 and that can be for one month. Hallie Martinez APRN.CNP Telephone Encounter - Tri Sorensen RN - 10/18/2022 2:46 PM EST [facility] calling regarding recent script for nicotine patches for patient. Pharmacy states thepacks come in quantity of 81 only and to specify how many days provider would like patient to take this medication. Please contact [facility]. Thank you. documented in this encounterRegional Medical Center11-18-2022 NoteFort Hamilton Hospital11-18-2022 NoteFort Hamilton Hospital11-18-2022 InstructionsPatient InstructionsChbashir Oreilly MD - 10/18/2022 11:53 AM EST Check daily weight and call with 2-3 lbs weight gain in 24 hours, or 5 lbs total. documented in this encounterRegional Medical Center11-18-2022 History of Present illness NarrativeChbashir Oreilly MD - 10/18/2022 10:29 AM EST Chief Complaint Patient presents with: Hospital Follow Up HPI Macario Overton is a 47 year old female who presents here today for Hospital Discharge Follow up.. Patient was admitted to [facility] form 09/22 to 09/24 for acute on [...] Patient does not have follow up with managing member and has not seen cardiology recently for [...] tablet by mouth daily with breakfast. Insulin [place], Disposable, (BD ULTRA-FINE GABINO PEN NEEDLE) 32 [...] bedtime as needed. flash glucose scanning reader (Marco VascoSTYLE DOMENICO 14 DAY READER) 1 Device four [...] - ECG COMPLETE 2. COPD with exacerbation ([facility]) - ICD9: 491.21, ICD10: J44.1 [...] LOZENGE Panfilo Oreilly MD documented in this [facility]11-04-2022 Miscellaneous Notes Telephone Encounter - Diana [...] you. Diana Mackenzie LPN documented in this encounterRegional Medical Center11-01-2022 Miscellaneous Notes Telephone Encounter - Keyonna Gross LPN - 10/01/2022 9:02 AM EDT Spoke with pt and information listed below given. Pt verbalizes understanding. Pt has picked up the Trulicity. 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 [...] of the above. Thanks! Robert Sanchez, PharmD, [facility] Primary Care Clinical Pharmacist Telephone Encounter - [...] do. Keyonna Gross LPN documented in this encounterRegional Medical Center10-10-2022 Miscellaneous Notes Telephone Encounter - Sandra Potts LPN - 09/09/2022 3:57 PM EDT Looks like Robert Sanchez, [facility] sent a new script to [facility]. [facility] telephoned and stated they do have the medication in stock and script will be ready for case picker around 11am today. Patient telephonedand made aware, agreeable to [facility]. Sandra Potts LPN Telephone Encounter - aPnfilo Oreilly MD - 09/09/2022 2:08 PM EDT Can this be transferred to another pharmacy? Telephone Encounter - Jessica Croft LPN - 09/09/2022 2:04 PM EDT [facility] Trulicty is on backorder, Patient is completely out of medication x1 week, asking if there is an alternative for Patient. Jessica Croft LPN documented in this encounterRegional Medical Center10-06-2022 NoteFort Hamilton Hospital09-27-2022 Miscellaneous NotesTelephone Encounter - Lula Cameron LPN - 08/27/2022 2:01 PM EDT Pt calling for refill. HUMBLE: 07/09/22 NOV: 10/18/22 Last Refill: 02/28/22 #90 0 refills Lula Cameron LPN documented in this encounterRegional Medical Center09-01-2022 NoteFort Hamilton Hospital09-01-2022 History of Present illness NarrativeEmlara Sanchez [facility] - 08/01/2022 1:00 PM EDT Primary [...] eating a lot of fruit. Has the Review Trackers Domenico, said the sensor has fallen off [...] not present Adherence: denies missed doses Pharmacy: [facility] Rx coverage: Medicaid Affordability: no issues Diabetes supplies: nothingGrinderstWhelse Domenico CGM Organization System: pill box ACTIVE PROBLEM LIST Calculus of Gallbladder Without Mention of Cholecystitis Or Obstruction Anxiety Logan (Obstructive Sleep Apnea) Essential Hypertension Gerd (Gastroesophageal Reflux Disease) Morbid Obesity ([facility]) Microalbuminuria Insomnia History of Tobacco Use Hyperlipidemia Diabetic Neuropathy ([facility]) Type 2 Diabetes Mellitus With Diabetic Polyneuropathy, With Long-Term Current Use of Insulin ([facility]) Mgus (Monoclonal Gammopathy of Unknown Significance) Acute Pulmonary Embolism Without Acute Cor Pulmonale ([facility]) Adrenal Incidentaloma ([facility]) Obesity, Class III, BMI >= 40 PAST MEDICAL HISTORY Diagnosis Date Abscess of right groin 04/07/2014 Acute diastolic heart failure ([facility]) 01/2022 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[facility]) 07/2019 Left, small lesion on CT Anxiety Cholecystitis s/p cholecystectomy Diabetes mellitus without mention of complication Diabetic neuropathy ([facility]) Seeing Neurology Diastolic heart failure ([facility]) GERD (gastroesophageal reflux disease) History of abnormal cervical Pap smear History of tobacco use Hyperlipidemia Insomnia Microalbuminuria Morbid obesity ([facility]) Narcotic abuse ([facility]) Non-STEMI (non-ST elevated myocardial infarction) ([facility]) 2/2 respiratory illness LOGAN (obstructive sleep apnea) using CPAP, Dr. Dumont Pulmonary embolism ([facility]) Seasonal allergies Unspecified essential hypertension [...] 50 points >150; TDD 150 units) Insulin [place] Barge, Disposable, (BD ULTRA-FINE GABINO PEN NEEDLE) 32 [...] literature findings of possible increased risks of Peace's gangrene - advised patient to stop medication [...] niece help her get set up with [employer] ACEi/ARB for renal protection: yes, Scr and K+ sufficient Statin: yes, LFTs sufficient HbA1c: due 10/09 Patient is scheduled to see PCP on 10/18. Patient to have PharmD f/u on 09/05. Patient verbalized understanding of instructions. Robert Sanchez PharmD, [facility] Primary Care Clinical Pharmacist The majority of the pharmacy visit (> 50%) was spent counseling and/or coordinating care for the patient. interaction: telephonic time was 55 minutes. documented in this encounterRegional Medical Center09-01-2022 InstructionsPatient InstructionsRobert Sanchez RPh - [...] help you get set up with the Availendar account. If you did not get the email, please let me know. Start to review nutrition labels. Try to limit your carbohydrates to <30-45g per MEAL. Review thematerials I sent to you via CloudCover. Try to incorporate more protein and fiber into your diet. Try switching to 1/2 bagel or to Bagel Thins. documented in this encounterRegional Medical Center08-25-2022 NoteFort [facility]08-25-2022 History of Present illness Lewis Bauman MD [...] previous colonoscopy. She was recently evaluated at [facility] ED on 04/21/2022 for chest pain. She [...] abuse (HCC) Non-STEMI (non-ST elevated myocardial infarction) ([facility]) 2/2 respiratory illness LOGAN (obstructive sleep apnea) using CPAP, Dr. Dumont Pulmonary embolism ([facility]) Seasonal allergies Unspecified essential hypertension PAST SURGICAL HISTORY Procedure Laterality Date ANALGESIA,EPIDURAL,LABOR & 1994 INCISION & DRAINAGE ABSCESS COMPLICATED/MULTIPLE 04/07/14 LAPS SURG CHOLECYSTECTOMY W/CHOLANGIOGRAPHY 11/04/2007 PAST SURGICAL HISTORY OF Left 2007 arthroscopic knee surgery PAST SURGICAL HISTORY OF 1995 LEEP Current Outpatient Medications Medication Sig Insulin [place], Disposable, (BD ULTRA-FINE GABINO PEN NEEDLE) 32 [...] bedtime as needed. flash glucose scanning reader (Marco VascoSTYLE DOMENICO 14 DAY READER) 1 Device four [...] have offered referral to a larger hospital ([facility]) for screening colonoscopy Patient asks for alternatives for screening for colon cancer, and I have offered stool guaiac testing but told patient that this has to be done on a yearly basis. Patient states that she would prefer stool guaiac testing over going to [facility] for colonoscopy. I have ordered [...] Straightforward Berenice Bauman MD documented in this encounterRegional Medical Center08-24-2022 Miscellaneous Notes Telephone Encounter - [...] notify patient. Madelyn Estes documented in this encounterRegional Medical Center08-23-2022 Nurse Timbo Cagle - 07/23/2022 [...] Colonoscopy: Unknown Nadia Cagle documented in this encounterRegional Medical Center08-11-2022 Miscellaneous Notes Telephone Encounter - Robert Sanchez RPh - 07/11/2022 9:21 AM EDT Called patient to schedule f/up appt for DM mngt, CGM interpretation, and med review. Scheduled for 08/01. Billy MarionD, BCPS Primary Care Clinical Pharmacist documented in this encounterRegional Medical Center08-09-2022 NoteFort Hamilton Hospital08-09-2022 Miscellaneous NotesTelephone Encounter - Sandra Potts LPN - 07/09/2022 1:20 PM EDT Patient aware. Sandra Potts LPN Telephone Encounter - Panfilo Oreilly MD - 07/09/2022 1:17 PM EDT Rx sent as requested. Telephone Encounter - Lula Sarmiento LPN - 07/09/2022 11:37 AM EDT Patient is changing her primary pharmacy to [facility] and is requesting all Rx's for medications and diabetic supplies forwarded to them. documented in this encounterRegional Medical Center08-09-2022 NoteFort Hamilton Hospital08-05-2022 Miscellaneous NotesTelephone Encounter - Diana Mackenzie KRISTIAN [...] you. Diana Mackenzie LPN documented in this encounterRegional Medical Center08-03-2022 Miscellaneous Notes Telephone Encounter - [...] schedule. Belem Romero Ma documented in this encounterRegional Medical Center07-29-2022 Miscellaneous NotesTelephone Encounter - Belem Romero Ma - 06/28/2022 4:24 PM EDT See phone note, pt needs appt. Belem Romero Ma elephone Encounter - Panfilo Orelily MD - 2022 5:25 PM EDT Patient [...] patient. Kimber Moore Pss documented in this encounterRegional Medical Center07-29-2022 Miscellaneous Notes Telephone Encounter - Lula Sarmiento LPN - 06/28/2022 11:41 AM EDT Phoned patient to schedule OV follow up as she is past due. Patient had an appointment on 06/18/22 but was a no show. documented in this encounterRegional Medical Center07-28-2022 Miscellaneous NotesTelephone Encounter - Robert Sanchez RPh - 2022 11:45 AM EDT Patient no-showed to PharmMonae visit today. Unable to reach via phone and VM not set up yet. Will try reaching out at a later date to reschedule. Robert Sanchez PharmD, [facility] Primary Care Clinical Pharmacist Ronal Paz [facility] documented in this encounterRegional Medical Center07-14-2022 Miscellaneous NotesTelephone Encounter - Robert Sanchez RPh - 06/13/2022 11:17 AM EDT Patient is a no show for PharmD visit today. Called patient, she is still out of town, had a car issue and just got fixed today. She apologized for missing and agreed to reschedule for next week on 06/20. Robert Sanchez PharmD, [facility] Primary Care Clinical Pharmacist Ronal Paz [facility] documented in this encounterRegional Medical Center07-06-2022 Miscellaneous NotesTelephone Encounter - Hallie [...] you. Lashon Overton LPN documented in this encounterRegional Medical Center06-02-2022 NoteFort Hamilton Hospital 05-02-2022 History of Present illness NarrativeRobert Sanchez [...] consumed sugar (cup of OJ and chewy [employer]), levels eventually went up to 90 mg/dL. [...] to [place]. Leaving for vacation in [place] on Friday. Current DM Medications: Metformin ER [...] present Adherence: denies missed doses Pharmacy: [facility] in [place] Rx coverage: Medicaid Affordability: no issues Diabetes supplies: DIIME CGM Organization System: pill box ACTIVE PROBLEM [...] mouth once daily. flash glucose scanning reader (Marco VascoSTYLE DOMENICO 14 DAY READER) 1 Device four [...] diet PharmD sent invite to link via Availendar. Patient to get account set up prior to next PharmD visit and have CGM downloaded the day prior HbA1c: due 06/18 Patient is scheduled to see MANAGER EQUIPMENT on 06/18. Patient to have PharmD f/u on 06/06. Patient verbalized understanding of instructions. Robert Sanchez PharmD, [facility] Primary Care Clinical Pharmacist Ronal Paz [facility] The majority of the pharmacy visit (> 50%) was spent counseling and/or coordinating care for the patient. interaction: telephonic time was 30 minutes. documented in this encounterRegional Medical Center06-01-2022 Miscellaneous NotesTelephone Encounter - Hallie [...] you. Georgina Samayoa RN documented in this encounterRegional Medical Center05-11-2022 Miscellaneous NotesTelephone Encounter - Panfilo [...] have it sent to her pharmacy , [facility]. Patient has been identified by name and date of : Yes Pending Prescriptions Disp Refills GABAPENTIN 800 MG TABLET 90 tablet 0 Sig: Take 1 tablet by mouth three times daily for 30 days. RIKKI: No RX INSTRUCTIONS: Patient aware RX will be sent to pharmacy. No need to notify patient. Vanessa Ferrarisec documented in this encounterRegional Medical Center05-04-2022 Miscellaneous NotesTelephone Encounter - oRbert Sanchez, [facility] - 04/03/2022 10:56 AM EDT PharmD [...] office with any issues. Robert Sanchez PharmD, [facility] Primary Care Clinical Pharmacist Ronal Paz [facility] documented in this encounterRegional Medical Center04-29-2022 Miscellaneous NotesTelephone Encounter - Robert Sanchez RPh - 03/29/2022 4:04 PM EDT Dose [...] questions andverbalized understanding. Leena Salinas PharmD PGY1 Regional Sales Representative elephone Encounter - Leena Salinas RPh - [...] for insurance coverage. Leena Salinas PharmD PGY1 Regional Sales Representative elephone Encounter - Georgina Samayoa RN - 03/29/2022 11:38 AM EDT Patient calls and states that provider had increased patient's insurance yesterday at appointment. Patient states that when she went to case picker medication she was told that dosage is too high by pharmacist and insurance will not cover medication. Patient states that she may need a prior authorization. Please review and advise, Georgina Samayoa RN documented in this encounterRegional Medical Center04-28-2022 Miscellaneous Notes Telephone Encounter - [...] if provider will send a medication to [facility] in [place] for her. Please call and advise. documented in this encounterRegional Medical Center04-28-2022 NoteFort Hamilton Hospital04-28-2022 NoteFort Hamilton Hospital04-28-2022 History of Present illness Kimo Sanchez RPh - 03/28/2022 10:30 AM EDT The patient's case was discussed with the pharmacy affairs assistant who interviewed the patient. Walton elements of history confirmed during office visit. The progress note reflects my input and comments. Robert Sanchez PharmD, [facility] Primary Care Clinical Pharmacist Carmel PH[facility] Elizabeth Salinas RPh - 03/28/2022 10:30 [...] mid-200s mg/dL. Patient was able to obtain Review Trackers Domenico CGM and was using. Patient recently placed new sensor on arm, but it was accidentally knocked offa couple days later. Not currently using CGM or checking BG. Patient states she never received invite for Availendar to connect with PharmD to view CGM [...] getting from pharmacy later today Pharmacy: [facility] in [place] Rx coverage: Medicaid Affordability: no issues Diabetes supplies: DIIME CGM Organization System: pill box ACTIVE PROBLEM [...] right groin 04/07/2014 Acute diastolic heart failure ([facility]) 01/2022 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[facility]) 07/2019 Left, small lesion on CT Anxiety Cholecystitis s/p cholecystectomy Diabetes mellitus without mention of complication Diabetic neuropathy ([facility]) Seeing Neurology GERD (gastroesophageal reflux disease) History of abnormal cervical Pap smear History of tobacco use Hyperlipidemia Insomnia Microalbuminuria Morbid obesity ([facility]) Narcotic abuse ([facility]) Non-STEMI (non-ST elevated myocardial infarction) ([facility]) 2/2 respiratory illness LOGAN (obstructive sleep apnea) using CPAP Pulmonary embolism ([facility]) Seasonal allergies Unspecified essential hypertension [...] mouth once daily. flash glucose scanning reader (Marco VascoSTYLE DOMENICO 14 DAY READER) 1 Device four [...] 261 12/12/2021 The 10-year ASCVD risk score (Silver Plumenikole SURESH Jr., et al., 2013) is: 2.6% [...] Tresiba to lower BG; patient can connect Availendar profile to PharmD for PharmD to review [...] 2000 mg daily Advised patient to call [employer] (telephone number on back of reader) to inquire about getting a replacement sensor PharmD will re-send invite to patient's email to connect on Availendar for CGM report sharing Patient to notify PharmD before next f/up visit if having any issues connecting on Availendar Recommended patient to reach out to PCP [...] understanding of instructions. Leena Salinas PharmD PGY1 Regional Sales Representative The majority of the pharmacy visit (> 50%) was spent counseling and/or coordinating care for the patient. interaction: telephonic time was 26 minutes. documented in this encounterRegional Medical Center04-20-2022 Miscellaneous Notes Telephone Encounter - Keoynna Gross LPN - 03/20/2022 11:04 AM EDT Spoke with pt and information listed below given. Pt verbalizes understanding. Transferred to epic ambulatory analyst. Keyonna Gross LPN Telephone Encounter - Cass [...] months. Hallie Martinez APRN.CNP documented in this encounterRegional Medical Center04-19-2022 NoteFort Hamilton Hospital04-19-2022 History of Present illness NarrativeHallie Martinez APRN.CNP [...] water in it. Following with pulmonology in [place]. Continues to wear O2 continuously 2L at [...] right groin 04/07/2014 Acute diastolic heart failure ([facility]) 01/2022 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[facility]) 07/2019 Left, small lesion on CT Anxiety Cholecystitis s/p cholecystectomy Diabetes mellitus without mention of complication Diabetic neuropathy ([facility]) Seeing Neurology GERD (gastroesophageal reflux disease) History of abnormal cervical Pap smear History of tobacco use Hyperlipidemia Insomnia Microalbuminuria Morbid obesity (HCC) Narcotic abuse (HCC) Non-STEMI (non-ST elevated myocardial infarction) ([facility]) 2/2 respiratory illness LOGAN (obstructive sleep apnea) using CPAP Pulmonary embolism ([facility]) Seasonal allergies Unspecified essential hypertension [...] mouth once daily. flash glucose scanning reader (Marco VascoSTYLE DOMENICO 14 DAY READER) 1 Device four [...] arise. - Discussed diabetic education issues of longwall foreman diabetic complications, diet and importance of exercise [...] carbohydrate, healthy oil intake diet. Hallie Martinez APRN.MANAGER EQUIPMENT Prescription instructions reviewed with patient as applicable. Patient advised if symptoms do not improve or if symptoms worsen sooner, to contact their primary care physician. Potential red flag symptoms discussed with the patient. Reviewed appropriate action plan to take if red flag symptoms occur. Patient agreeable to treatment plan. documented in this encounterRegional Medical Center04-05-2022 Miscellaneous Notes Telephone Encounter - Sandra Potts LPN - 03/05/2022 1:23 PM EDT Patient telephoned and made aware. Sandra Potts LPN elephone Encounter - Panfilo Oreilly MD - 03/05/2022 1:06 PM EDT rx for Humalog sent. Continue same dosage as Novolog. elephone Encounter - Diana Mackenzie LPN - 03/05/2022 10:28 AM EDT Meghan from [facility] calling patient insurance requesting Novolog insulin be changed to Humalog asking for new rx to be sent to pharmacy. Please advise documented in this encounterRegional Medical Center03-02-2022 Miscellaneous Notes Telephone Encounter - Sandra Potts LPN - 01/30/2022 11:27 AM EST Pt called and made aware. Prescription placed in medical records for pickup. Sandra Potts LPN Telephone Encounter - Marianne Grier RN - 01/30/2022 8:38 AM EST Patient calls to check on status of request for handicapped placard. Patient asking for prescriptionto be taken to Medical Records for case picker. Please call patient when available at [phone]. Marianne Grier RN Telephone Encounter - Panfilo [...] would like the prescription left at the desktop support specialist. No chief complaint on file. Patient has been identified by name Noemy:[id number]} [phone] (home) [phone] (cell) Please return call when prescription ready for case picker. Was an appointment scheduled: No: Closing statement: Results or non-symptom based questions: [facility] you for calling [facility], your call will be returned within the next business day. Idalia Gongoraectronically signed by Idalia Milton at 01/29/2022 2:06 PM EST documented in this encounterRegional Medical Center02-28-2022 Miscellaneous Notes Telephone Encounter - [...] needed. Hallie Martinez APRN.CNP documented in this encounterRegional Medical Center02-25-2022 Miscellaneous Notes Telephone Encounter - [...] with the shower chair and walker Hallie Matrinez APRN.NIKIA elephone Encounter - Sandra Potts LPN - 01/25/2022 11:24 AM EST Pt telephoned. [facility] didn't receive orders yet. Pt requesting [...] to patient with update documented in this encounterRegional Medical Center02-25-2022 Miscellaneous NotesTelephone Encounter - Nita [...] yeast infection. Please send scripts to [facility] documented in this encounterRegional Medical Center02-23-2022 Miscellaneous NotesTelephone Encounter - Hallie Martinez APRN.CNP - 01/23/2022 4:35 PM EST Please fax orders for compression hose, wheeled walker and shower chair to [facility]. Orders in my outbox documented in this encounterRegional Medical Center02-14-2022 Miscellaneous Notes Telephone Encounter - [...] patient. Kristine Marmolejo Pss documented in this encounterRegional Medical Center07-20-2021 Miscellaneous Notes Telephone Encounter - Esthela Weeks LPN - 06/19/2021 3:13 PM EDT Prior Authorization has been completed online at [employer] for Angelo Gore, will await response. [place]- [id number] Please keep encounter open until final decision has been received and documented from insurance company. Adalgisa Weeks LPN documented in this encounterRegional Medical Center12-07-2007 History of Past illness Narrative Problem Noted Date Resolved Date Acute cholecystitis 11/06/2007 11/20/2021 documented as of this encounter (statuses as of 02/26/2022)[facility] of Past illness Narrative Problem Noted Date Resolved Date Acute cholecystitis 11/06/2007 11/20/2021 documented as of this encounter (statuses as of 03/19/2022)[facility] History of Past illness Narrative Problem Noted Date Resolved Date Acute cholecystitis 11/06/2007 11/20/2021 documented as of this encounter (statuses as of 03/20/2022)[facility] History of Past illness Narrative Problem Noted Date Resolved Date Acute cholecystitis 11/06/2007 11/20/2021 documented as of this encounter (statuses as of 03/20/2022)[facility] History of Past illness Narrative Problem Noted Date Resolved Date Acute cholecystitis 11/06/2007 11/20/2021 documented as of this encounter (statuses as of 03/20/2022)[facility] History of Past illness Narrative Problem Noted Date Resolved Date Acute cholecystitis 11/06/2007 11/20/2021 documented as of this encounter (statuses as of 03/20/2022)[facility] History of Past illness Narrative Problem Noted Date Resolved Date Acute cholecystitis 11/06/2007 11/20/2021 documented as of this encounter (statuses as of 03/20/2022)[facility] History of Past illness Narrative Problem Noted Date Resolved Date Acute cholecystitis 11/06/2007 11/20/2021 documented as of this encounter (statuses as of 03/28/2022)[facility] History of Past illness Narrative Problem Noted Date Resolved Date Acute cholecystitis 11/06/2007 11/20/2021 documented as of this encounter (statuses as of 03/29/2022)[facility] History of Past illness Narrative Problem Noted Date Resolved Date Acute cholecystitis 11/06/2007 11/20/2021 documented as of this encounter (statuses as of 04/02/2022)[facility] History of Past illness Narrative Problem Noted Date Resolved Date Acute cholecystitis 11/06/2007 11/20/2021 documented as of this encounter (statuses as of 04/03/2022)[facility] History of Past illness Narrative Problem Noted Date Resolved Date Acute cholecystitis 11/06/2007 11/20/2021 documented as of this encounter (statuses as of 04/10/2022)[facility] History of Past illness Narrative Problem Noted Date Resolved Date Acute cholecystitis 11/06/2007 11/20/2021 documented as of this encounter (statuses as of 05/01/2022)[facility] History of Past illness Narrative Problem Noted Date Resolved Date Acute cholecystitis 11/06/2007 11/20/2021 documented as of this encounter (statuses as of 05/02/2022)[facility] History of Past illness Narrative Problem Noted Date Resolved Date Acute cholecystitis 11/06/2007 11/20/2021 documented as of this encounter (statuses as of 06/03/2022)[facility] History of Past illness Narrative Problem Noted Date Resolved Date Acute cholecystitis 11/06/2007 11/20/2021 documented as of this encounter (statuses as of 06/05/2022)[facility] History of Past illness Narrative Problem Noted Date Resolved Date Acute cholecystitis 11/06/2007 11/20/2021 documented as of this encounter (statuses as of 06/13/2022)[facility] History of Past illness Narrative Problem Noted Date Resolved Date Acute cholecystitis 11/06/2007 11/20/2021 documented as of this encounter (statuses as of 2022)[facility] of Past illness Narrative Problem Noted Date Resolved Date Acute cholecystitis 11/06/2007 11/20/2021 documented as of this encounter (statuses as of 06/28/2022)[facility] of Past illness Narrative Problem Noted Date Resolved Date Acute cholecystitis 11/06/2007 11/20/2021 documented as of this encounter (statuses as of 06/28/2022)[facility] History of Past illness Narrative Problem Noted Date Resolved Date Acute cholecystitis 11/06/2007 11/20/2021 documented as of this encounter (statuses as of 07/03/2022)[facility] of Past illness Narrative Problem Noted Date Resolved Date Acute cholecystitis 11/06/2007 11/20/2021 documented as of this encounter (statuses as of 07/11/2022)[facility] of Past illness Narrative Problem Noted Date Resolved Date Acute cholecystitis 11/06/2007 11/20/2021 documented as of this encounter (statuses as of 07/19/2022)[facility] of Past illness Narrative Problem Noted Date Resolved Date Acute cholecystitis 11/06/2007 11/20/2021 documented as of this encounter (statuses as of 07/24/2022)[facility] History of Past illness Narrative Problem Noted Date Resolved Date Acute cholecystitis 11/06/2007 11/20/2021 documented as of this encounter (statuses as of 07/27/2022)[facility] of Past illness Narrative Problem Noted Date Resolved Date Acute cholecystitis 11/06/2007 11/20/2021 documented as of this encounter (statuses as of 08/01/2022)[facility] of Past illness Narrative Problem Noted Date Resolved Date Acute cholecystitis 11/06/2007 11/20/2021 documented as of this encounter (statuses as of 08/01/2022)[facility] of Past illness Narrative Problem Noted Date Resolved Date Acute cholecystitis 11/06/2007 11/20/2021 documented as of this encounter (statuses as of 08/16/2022)[facility] of Past illness Narrative Problem Noted Date Resolved Date Acute cholecystitis 11/06/2007 11/20/2021 documented as of this encounter (statuses as of 08/27/2022)[facility] of Past illness Narrative Problem Noted Date Resolved Date Acute cholecystitis 11/06/2007 11/20/2021 documented as of this encounter (statuses as of 09/10/2022)[facility] of Past illness Narrative Problem Noted Date Resolved Date Acute cholecystitis 11/06/2007 11/20/2021 documented as of this encounter (statuses as of 10/01/2022)[facility] of Past illness Narrative Problem Noted Date Resolved Date Acute cholecystitis 11/06/2007 11/20/2021 documented as of this encounter (statuses as of 10/04/2022)[facility] of Past illness Narrative Problem Noted Date Resolved Date Acute cholecystitis 11/06/2007 11/20/2021 documented as of this encounter (statuses as of 10/18/2022)[facility] of Past illness Narrative Problem Noted Date Resolved Date Acute cholecystitis 11/06/2007 11/20/2021 documented as of this encounter (statuses as of 10/22/2022)[facility] of Past illness Narrative Problem Noted Date Resolved Date Acute cholecystitis 11/06/2007 11/20/2021 documented as of this encounter (statuses as of 10/22/2022)[facility] of Past illness Narrative Problem Noted Date Resolved Date Acute cholecystitis 11/06/2007 11/20/2021 documented as of this encounter (statuses as of 10/22/2022)[facility] 11-06-2007 History of Past illness Narrative Problem Noted Date Resolved Date Acute cholecystitis 11/06/2007 11/20/2021 documented as of this encounter (statuses as of 10/30/2022)[facility] 11-06-2007 History of Past illness Narrative Problem Noted Date Resolved Date Acute cholecystitis 11/06/2007 11/20/2021 documented as of this encounter (statuses as of 11/05/2022)[facility] 11-06-2007 History of Past illness Narrative Problem Noted Date Resolved Date Acute cholecystitis 11/06/2007 11/20/2021 documented as of this encounter (statuses as of 11/06/2022)[facility] 11-06-2007 History of Past illness Narrative Problem Noted Date Resolved Date Acute cholecystitis 11/06/2007 11/20/2021 documented as of this encounter (statuses as of 11/11/2022)[facility] 11-06-2007 History of Past illness Narrative Problem Noted Date Resolved Date Acute cholecystitis 11/06/2007 11/20/2021 documented as of this encounter (statuses as of 11/11/2022)[facility] 11-06-2007 History of Past illness Narrative Problem Noted Date Resolved Date Acute cholecystitis 11/06/2007 11/20/2021 documented as of this encounter (statuses as of 12/04/2022)[facility] 11-06-2007 History of Past illness Narrative Problem Noted Date Resolved Date Acute cholecystitis 11/06/2007 11/20/2021 documented as of this encounter (statuses as of 12/06/2022)[facility] 11-06-2007 History of Past illness Narrative Problem Noted Date Resolved Date Acute cholecystitis 11/06/2007 11/20/2021 documented as of this encounter (statuses as of 12/12/2022)[facility] 11-06-2007 History of Past illness Narrative Problem Noted Date Resolved Date Acute cholecystitis 11/06/2007 11/20/2021 documented as of this encounter (statuses as of 12/13/2022)[facility] 11-06-2007 History of Past illness Narrative Problem Noted Date Resolved Date Acute cholecystitis 11/06/2007 11/20/2021 documented as of this encounter (statuses as of 12/25/2022)[facility] 11-06-2007 History of Past illness Narrative Problem Noted Date Resolved Date Acute cholecystitis 11/06/2007 11/20/2021 documented as of this encounter (statuses as of 12/25/2022)[facility] 11-06-2007 History of Past illness Narrative Problem Noted Date Resolved Date Acute cholecystitis 11/06/2007 11/20/2021 documented as of this encounter (statuses as of 12/30/2022)[facility] 11-06-2007 History of Past illness Narrative Problem Noted Date Resolved Date Acute cholecystitis 11/06/2007 11/20/2021 documented as of this encounter (statuses as of 12/31/2022)[facility] 11-06-2007 History of Past illness Narrative Problem Noted Date Resolved Date Acute cholecystitis 11/06/2007 11/20/2021 documented as of this encounter (statuses as of 01/02/2023)[facility] 11-06-2007 History of Past illness Narrative Problem Noted Date Resolved Date Acute cholecystitis 11/06/2007 11/20/2021 documented as of this encounter (statuses as of 01/02/2023)[facility] 11-06-2007 History of Past illness Narrative Problem Noted Date Resolved Date Acute cholecystitis 11/06/2007 11/20/2021 documented as of this encounter (statuses as of 01/03/2023)[facility] 11-06-2007 History of Past illness Narrative Problem Noted Date Resolved Date Acute cholecystitis 11/06/2007 11/20/2021 documented as of this encounter (statuses as of 01/07/2023)[facility] 11-06-2007 History of Past illness Narrative Problem Noted Date Resolved Date Acute cholecystitis 11/06/2007 11/20/2021 documented as of this encounter (statuses as of 01/07/2023)[facility] 11-06-2007 History of Past illness Narrative Problem Noted Date Resolved Date Acute cholecystitis 11/06/2007 11/20/2021 documented as of this encounter (statuses as of 01/13/2023)[facility] 11-06-2007 History of Past illness Narrative Problem Noted Date Resolved Date Acute cholecystitis 11/06/2007 11/20/2021 documented as of this encounter (statuses as of 01/14/2023)[facility] 11-06-2007 History of Past illness Narrative Problem Noted Date Resolved Date Acute cholecystitis 11/06/2007 11/20/2021 documented as of this encounter (statuses as of 01/15/2023)[facility] Evaluation note Diagnosis Chronic diastolic heart failure (HCC) Chronic diastolic heart failure [facility] Diagnosis Type 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, with long-term current use of insulin (HCC)- Primary Dysuria LOGAN (obstructive sleep apnea) 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 (adult) (pediatr ic) Essential hypertension Unspecified essential hypertension Chronic respiratory failure with hypoxia (HCC) Chronic respiratory failure Hyperlipidemia, unspecified hyperlipidem ia type [facility] Diagnosis Chronic diastolic heart failure (HCC)- P rimary Chronic diastolic heart failure [facility] Diagnosis Vaginal rasta [...] olyneuropathy, with long-term current use of insulin ([facility]) [facility] Diagnosis Acute diastolic CHF (congestive heart fa ilure) ([facility])- Primary Acute diastolic heart failure COPD with exacerbation ([facility]) Obstructive chronic bronchitis with exac erbation Bacterial pneumonia Bacterial pneumonia, unspecified Hypoxia Hypoxemia LOGAN treated with BiPAP Bilateral lower extremity edema Edema Type 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, with long-term current use of insulin ([facility]) Other chest pain Tremor Abnormal involuntary movements Tobacco use Tobacco use disorder [facility] Diagnosis Type 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, with long-term current use of insulin ([facility])- Primary History of tobacco use Personal history of tobacco use, present ing hazards to health [facility] Diagnosis Onychomycosis- Primary Dermatophytosis of nail Pain in toe of left foot Pain in limb Pain in toe of right foot Pain in limb Other diabetic neurological complication associated with type 2 diabetes mellitus ([facility]) Hyperkeratosis Acquired keratoderma Chronic venous insufficiency Unspecified venous (peripheral) insuffic iency Diminished pulses in lower extremity Other symptoms involving cardiovascular system [facility] Diagnosis Strep pharyngitis- Primary Streptococcal sore throat Reactive airway disease with acute exace rbation, unspecified asthma severity, unspecified whether persistent Tremor Abnormal involuntary movements LOGAN treated with BiPAP Morbid obesity ([facility]) Morbid obesity Type 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, with long-term current use of insulin ([facility]) Episodic lightheadedness Dizziness and giddiness Dehydration documented [facility] Diagnosis KERRY (acute kidney injury) ([facility])- Primary Acute kidney failure, unspecified documented [facility] Clinic[facility] Diagnosis Acute diastolic CHF (congestive heart fa ilure) ([facility]) Acute diastolic heart failure Bilateral lower extremity edema Edema [facility] Diagnosis Type 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, with long-term current use of insulin ([facility]) [facility] Diagnosis Type 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, with long-term current use of insulin ([facility]) Ischemia of heart, chronic Chronic ischemic heart disease, unspecif ied Tachycardia Tachycardia, unspecified Acute pulmonary embolism without acute c or pulmonale, unspecified pulmonary embolism type (HCC) Essential hypertension Unspecified essential hypertension Hyperlipidemia, unspecified hyperlipidem ia type documented in [facility] Clinic[facility] Diagnosis Necrotizing soft tissue infection [facility]Reg[facility] Diagnosis Open wounds involving multiple regions o f lower extremity- Primary documented in [facility] encounterReg[facility] CenterEvaluation note Diagnosis Abscess of groin, left- Primary Cellulitis and abscess of trunk Non-healing open wound of left groin, in itial encounter Necrotizing soft tissue infection Cellulitis of skin Cellulitis and abscess of unspecified si te Type 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, with long-term current use of insulin (HCC) [facility] in [facility] encounterReg[facility] CenterPatient[facility] Plan of care note Visit Details Visit Type -SN SOC Discipline -Chcf Problems Problem Description Start Date Status Goals [...] management and oxygen safety. documented in this encounterRegional [facility] CenterPatient[facility] home Plan of care note Visit Details Visit Type -Care Coordination Discipline -Credit Specialist Problems Problem Description Start Date Status Goals Interventions PULLEY MORTISER OPERATOR Referral 02/23/2023 Resolved on 1 goal linked to 1 goal Disciplines: 02/25/2023 scheduled/documen interventi on Skilled mitul intervention schedule d/document Services ed in this vis it Goals Goal Associated Problem Outcome Goal Met? Visit Not es Patient will be referred to PULLEY MORTISER OPERATOR Referral Completed Yes additional discipline as needed Interventions Intervention Associated Problem/Goal Status Variance Visi t Notes PULLEY MORTISER OPERATOR evaluation and Problem:PULLEY MORTISER OPERATOR Referral Completed treatment Goal:Patient will be referred to additional discipline as needed Description: PULLEY MORTISER OPERATOR Referral eval and treat for Community [employer]. Patient states she is on waiver and is in need of an aide, electric, wheel chair, raised recliner states CM is working on these items [facility]) Diagnostic Procedure Only (Routine) - Pending Review Specialty Diagnoses / Procedures Referred By Contact Refer red To Contact BR IMAGING Diagnoses Encounter for screening mammogram for breast cancer Panfilo Oreilly MD Br Imaging Procedures SHERYL SCREENING SCREENING MAMMOGRAPHY BI 2-VIEW BREAST INC CAD [address] [place] [address] [id number] Referral ID Status Reason Start Expiration Visits Visits Date Date Requested Authorized [id number] Pending Auto-Generat 05/29/2022 06/28/2023 1 1 Review ed Referral [facility] (narrative)Outpatient Procedure (Routine) - Closed Specialty Diagnoses / Procedures Referred By Contact Refer red To Contact HEART AND VASCULAR Diagnoses Acute diastolic CHF (congestive heart failure) (HCC) Other chest pain Panfilo Oreilly, [facility] Procedures ECG COMPLETE ECG ROUTINE ECG W/LEAST 12 LDS W/I&R [address] [place], [place] [id number] [place] [id number] Referral ID Status Reason Start Date Expiration Date Visits V isits Requested Authorized [id number] Closed Auto-Generate 10/18/2022 10/18/2023 1 1 d Referral Diagnostic Procedure Only (Urgent) - Pending Review Specialty Diagnoses / Referred By Contact Referred To Contact Procedures MOLECULAR & Diagnoses Acute diastolic CHF (congestive heart failure) (HCC) Panfilo Oreilly Molecular [facility] FUNCTIONAL IMAGING Procedures NM CARDIAC PERF STRESS/PHARM MYOCARDIAL SPECT MULTIPLE STUDIES MD D[facility] [address] [facility] [address] [place], [place] [address] [place] [address] Referral ID Status Reason Start Expiration Visits Visits Date Date Requested Authorized [id number] Pending Auto-Generat 11/17/2023 1 1 Review ed Referral 2 Consult, Test, Treat (Routine) - Authorized Specialty Diagnoses / Procedures Referred By Contact Refer red To Contact Cardiology Diagnoses Acute diastolic CHF (congestive heart failure) (HCC) Panfilo Oreilly MD Procedures CONSULT TO CARDIOLOGY OFFICE/OUTPATIENT [facility] 60-74 MINUTES [address] [place] [id number] Referral ID Status Reason Start Expiration Visits Visits Date Date Requested Authorized [id number] Authorized PCP Requested 10/18/2023 1 1 Referral 2 [facility] (narrative)Outpatient Procedure (Routine) - Pending Review Specialty Diagnoses / Procedures Referred By Contact Refer red To Contact HEART AND VASCULAR Diagnoses Onychomycosis Other diabetic neurological complication associated with type 2 diabetes mellitus (HCC) Diminished pulses in lower extremity [facility] Procedures PVR ANK PRESS TAY VAS LAB NON-INVAS PHYSIOLOGIC STD EXTREMITY ART 2 LEVEL [address] [place] [id number] [facility] [place] [address] Referral ID Status Reason Start Expiration Visits Visits Date Date Requested Authorized [id number] Pending Auto-Generat 11/06/2022 11/06/2023 1 1 Review ed [facility]Outpatient Procedure (Urgent) - Authorized Specialty Diagnoses / Referred By Contact Referred To Contact Procedures [facility] Diagnoses Tremor Bursley, Christopher [facility] [place] Procedures EPIL EEG ROUTINE ELECTROENCEPHALOGRAM REC COMA/SLEEP ONLY MD Dorys [address] [place] [address] [place] [address] Referral ID Status Reason Start Expiration Visits Visits Date Date Requested Authorized [id number] Authorized Auto-Generat 11/08/2022 11/08/2023 1 1 ed Referral Consult, Test, Treat (Routine) - Authorized Specialty Diagnoses / Procedures Referred By Contact Refer red To Contact Neurology Diagnoses Tremor Panfilo Oreilly MD Procedures CONSULT TO NEUROLOGY OFFICE/OUTPATIENT [facility] 60-74 MINUTES [address] [place] [address] Referral ID Status Reason Start Expiration Visits Visits Date Date Requested Authorized [id number] Authorized PCP Requested 11/08/2022 11/08/2023 1 1 Referral [facility] Advance Directives No Advanced Directives Records Found Documents on File Type Date Recorded Patient Cane Cutter Explanati on Advance Directive(s) 02/05/2022 1:53 PM Advance Directive(s) 10/16/2021 9:28 AM Documents on File Type Date Recorded Patient Cane Cutter Explanati on Advance Directive(s) 02/05/2022 1:53 PM Advance Directive(s) 10/16/2021 9:28 AM Latest Code Status on File Code Status Date Activated Date Inactivated Comments Full Code 02/25/2023 7:20 AM Latest Code Status on File Code Status Date Activated Date Inactivated Comments Full Code 02/25/2023 7:20 AM Reason for Referral Specialty Diagnoses / Procedures Referred By Contact Refer red To Contact aPnfilo Oreilly MD [address] [place] [address] Referral ID Status Reason Start Date Expiration Date Visits Requ ested Visits Authorized [id number] Closed 1 1 Specialty Diagnoses / Procedures Referred By Contact Refer red To Contact Diagnoses Acute pulmonary embolism without acute cor pulmonale, unspecified pulmonary embolism type (HCC) Bacterial pneumonia Panfilo Oreilly MD [address] [place] [address] Referral ID Status Reason Start Date Expiration Date Visits Requ ested Visits Authorized [id number] Closed 1 1 Referral ID Status Reason Start Date Expiration Date Visits Requ ested Visits Authorized [id number] Closed 1 1 Summary Purpose Family History [...] prosecute any alcohol or drug abuse patient. [facility] the event this information is protected by t Federal Confidentiality of Alcohol and Drug Abuse Patient Records regulations: This information has been disclosed to you from records protected by Federal confid entiality rules ( The Federal rules restrict any use of th e information to criminally investigate or prosecute any alcohol or drug abuse tracy ent. [facility] the event this information is protected by the Federal Confidentiality of Alcohol and Drug Abuse Patient Records regulations: This inform ation has been disclosed to you from records protected by Federal confidentiality rul es ( The Federal rules restrict any use of the in formation to criminally investigate or prosecute any alcohol or drug abuse tracy ent. [facility]In the event this information is protected by the Federal Confidentiality of Alcohol and Drug Abuse Patient Records regulations: This inform ation has been disclosed to you from records protected by Federal confidentiality rul es ( The Federal rules restrict any use of the in formation to criminally investigate or prosecute any alcohol or drug abuse tracy ent. [facility]In the event this information is protected by the Federal Confidentiality of Alcohol and Drug Abuse Patient Records regulations: This inform ation has been disclosed to you from records protected by Federal confidentiality rul es ( The Federal rules restrict any use of the in formation to criminally investigate or prosecute any alcohol or drug abuse tracy ent. [facility]In the event this information is protected by the Federal Confidentiality of Alcohol and Drug Abuse Patient Records regulations: This inform ation has been disclosed to you from records protected by Federal confidentiality rul es ( The Federal rules restrict any use of the in formation to criminally investigate or prosecute any alcohol or drug abuse tracy ent. [facility] the event this information is protected by the Federal Confidentiality of Alcohol and Drug Abuse Patient Records regulations: This inform ation has been disclosed to you from records protected by Federal confidentiality rul es ( The Federal rules restrict any use of the in formation to criminally investigate or prosecute any alcohol or drug abuse tracy ent. [facility]In the event this information is protected by the Federal Confidentiality of Alcohol and Drug Abuse Patient Records regulations: This inform ation has been disclosed to you from records protected by Federal confidentiality rul es ( The Federal rules restrict any use of the in formation to criminally investigate or prosecute any alcohol or drug abuse tracy ent. [facility]In the event this information is protected by the Federal Confidentiality of Alcohol and Drug Abuse Patient Records regulations: This inform ation has been disclosed to you from records protected by Federal confidentiality rul es ( The Federal rules restrict any use of the in formation to criminally investigate or prosecute any alcohol or drug abuse tracy ent. [facility]In the event this information is protected by the Federal Confidentiality of Alcohol and Drug Abuse Patient Records regulations: This inform ation has been disclosed to you from records protected by Federal confidentiality rul es ( The Federal rules restrict any use of the in formation to criminally investigate or prosecute any alcohol or drug abuse tracy ent. [facility]In the event this information is protected by the Federal Confidentiality of Alcohol and Drug Abuse Patient Records regulations: This inform ation has been disclosed to you from records protected by Federal confidentiality rul es ( The Federal rules restrict any use of the in formation to criminally investigate or prosecute any alcohol or drug abuse tracy ent. [facility]In the event this information is protected by the Federal Confidentiality of Alcohol and Drug Abuse Patient Records regulations: This inform ation has been disclosed to you from records protected by Federal confidentiality rul es ( The Federal rules restrict any use of the in formation to criminally investigate or prosecute any alcohol or drug abuse tracy ent. [facility]In the event this information is protected by the Federal Confidentiality of Alcohol and Drug Abuse Patient Records regulations: This inform ation has been disclosed to you from records protected by Federal confidentiality rul es ( The Federal rules restrict any use of the in formation to criminally investigate or prosecute any alcohol or drug abuse tracy ent. [facility]In the event this information is protected by the Federal Confidentiality of Alcohol and Drug Abuse Patient Records regulations: This inform ation has been disclosed to you from records protected by Federal confidentiality rul es ( The Federal rules restrict any use of the in formation to criminally investigate or prosecute any alcohol or drug abuse tracy ent. [facility]In the event this information is protected by the Federal Confidentiality of Alcohol and Drug Abuse Patient Records regulations: This inform ation has been disclosed to you from records protected by Federal confidentiality rul es ( The Federal rules restrict any use of the in formation to criminally investigate or prosecute any alcohol or drug abuse tracy ent. [facility]In the event this information is protected by the Federal Confidentiality of Alcohol and Drug Abuse Patient Records regulations: This inform ation has been disclosed to you from records protected by Federal confidentiality rul es ( The Federal rules restrict any use of the in formation to criminally investigate or prosecute any alcohol or drug abuse tracy ent. [facility]In the event this information is protected by the Federal Confidentiality of Alcohol and Drug Abuse Patient Records regulations: This inform ation has been disclosed to you from records protected by Federal confidentiality rul es ( The Federal rules restrict any use of the in formation to criminally investigate or prosecute any alcohol or drug abuse tracy ent. [facility]In the event this information is protected by the Federal Confidentiality of Alcohol and Drug Abuse Patient Records regulations: This inform ation has been disclosed to you from records protected by Federal confidentiality rul es ( The Federal rules restrict any use of the in formation to criminally investigate or prosecute any alcohol or drug abuse tracy ent. [facility]In the event this information is protected by the Federal Confidentiality of Alcohol and Drug Abuse Patient Records regulations: This inform ation has been disclosed to you from records protected by Federal confidentiality rul es ( The Federal rules restrict any use of the in formation to criminally investigate or prosecute any alcohol or drug abuse tracy ent. [facility]In the event this information is protected by the Federal Confidentiality of Alcohol and Drug Abuse Patient Records regulations: This inform ation has been disclosed to you from records protected by Federal confidentiality rul es ( The Federal rules restrict any use of the in formation to criminally investigate or prosecute any alcohol or drug abuse tracy ent. [facility]In the event this information is protected by the Federal Confidentiality of Alcohol and Drug Abuse Patient Records regulations: This inform ation has been disclosed to you from records protected by Federal confidentiality rul es ( The Federal rules restrict any use of the in formation to criminally investigate or prosecute any alcohol or drug abuse tracy ent. [facility]In the event this information is protected by the Federal Confidentiality of Alcohol and Drug Abuse Patient Records regulations: This inform ation has been disclosed to you from records protected by Federal confidentiality rul es ( The Federal rules restrict any use of the in formation to criminally investigate or prosecute any alcohol or drug abuse tracy ent. [facility] the event this information is protected by the Federal Confidentiality of Alcohol and Drug Abuse Patient Records regulations: This inform ation has been disclosed to you from records protected by Federal confidentiality rul es ( The Federal rules restrict any use of the in formation to criminally investigate or prosecute any alcohol or drug abuse tracy ent. [facility]In the event this information is protected by the Federal Confidentiality of Alcohol and Drug Abuse Patient Records regulations: This inform ation has been disclosed to you from records protected by Federal confidentiality rul es ( The Federal rules restrict any use of the in formation to criminally investigate or prosecute any alcohol or drug abuse tracy ent. [facility]In the event this information is protected by the Federal Confidentiality of Alcohol and Drug Abuse Patient Records regulations: This inform ation has been disclosed to you from records protected by Federal confidentiality rul es ( The Federal rules restrict any use of the in formation to criminally investigate or prosecute any alcohol or drug abuse tracy ent. [facility]In the event this information is protected by the Federal Confidentiality of Alcohol and Drug Abuse Patient Records regulations: This inform ation has been disclosed to you from records protected by Federal confidentiality rul es ( The Federal rules restrict any use of the in formation to criminally investigate or prosecute any alcohol or drug abuse tracy ent. [facility]In the event this information is protected by the Federal Confidentiality of Alcohol and Drug Abuse Patient Records regulations: This inform ation has been disclosed to you from records protected by Federal confidentiality rul es ( The Federal rules restrict any use of the in formation to criminally investigate or prosecute any alcohol or drug abuse tracy ent. [facility]In the event this information is protected by the Federal Confidentiality of Alcohol and Drug Abuse Patient Records regulations: This inform ation has been disclosed to you from records protected by Federal confidentiality rul es ( The Federal rules restrict any use of the in formation to criminally investigate or prosecute any alcohol or drug abuse tracy ent. [facility]In the event this information is protected by the Federal Confidentiality of Alcohol and Drug Abuse Patient Records regulations: This inform ation has been disclosed to you from records protected by Federal confidentiality rul es ( The Federal rules restrict any use of the in formation to criminally investigate or prosecute any alcohol or drug abuse tracy ent. [facility]In the event this information is protected by the Federal Confidentiality of Alcohol and Drug Abuse Patient Records regulations: This inform ation has been disclosed to you from records protected by Federal confidentiality rul es ( The Federal rules restrict any use of the in formation to criminally investigate or prosecute any alcohol or drug abuse tracy ent. [facility]In the event this information is protected by the Federal Confidentiality of Alcohol and Drug Abuse Patient Records regulations: This inform ation has been disclosed to you from records protected by Federal confidentiality rul es ( The Federal rules restrict any use of the in formation to criminally investigate or prosecute any alcohol or drug abuse tracy ent. [facility]In the event this information is protected by the Federal Confidentiality of Alcohol and Drug Abuse Patient Records regulations: This inform ation has been disclosed to you from records protected by Federal confidentiality rul es ( The Federal rules restrict any use of the in formation to criminally investigate or prosecute any alcohol or drug abuse tracy ent. [facility]In the event this information is protected by the Federal Confidentiality of Alcohol and Drug Abuse Patient Records regulations: This inform ation has been disclosed to you from records protected by Federal confidentiality rul es ( The Federal rules restrict any use of the in formation to criminally investigate or prosecute any alcohol or drug abuse tracy ent. [facility]In the event this information is protected by the Federal Confidentiality of Alcohol and Drug Abuse Patient Records regulations: This inform ation has been disclosed to you from records protected by Federal confidentiality rul es ( The Federal rules restrict any use of the in formation to criminally investigate or prosecute any alcohol or drug abuse tracy ent. [facility]In the event this information is protected by the Federal Confidentiality of Alcohol and Drug Abuse Patient Records regulations: This inform ation has been disclosed to you from records protected by Federal confidentiality rul es ( The Federal rules restrict any use of the in formation to criminally investigate or prosecute any alcohol or drug abuse tracy ent. [facility]In the event this information is protected by the Federal Confidentiality of Alcohol and Drug Abuse Patient Records regulations: This inform ation has been disclosed to you from records protected by Federal confidentiality rul es ( The Federal rules restrict any use of the in formation to criminally investigate or prosecute any alcohol or drug abuse tracy ent. [facility]In the event this information is protected by the Federal Confidentiality of Alcohol and Drug Abuse Patient Records regulations: This inform ation has been disclosed to you from records protected by Federal confidentiality rul es ( The Federal rules restrict any use of the in formation to criminally investigate or prosecute any alcohol or drug abuse tracy ent. [facility]In the event this information is protected by the Federal Confidentiality of Alcohol and Drug Abuse Patient Records regulations: This inform ation has been disclosed to you from records protected by Federal confidentiality rul es ( The Federal rules restrict any use of the in formation to criminally investigate or prosecute any alcohol or drug abuse tracy ent. [facility]In the event this information is protected by the Federal Confidentiality of Alcohol and Drug Abuse Patient Records regulations: This inform ation has been disclosed to you from records protected by Federal confidentiality rul es ( The Federal rules restrict any use of the in formation to criminally investigate or prosecute any alcohol or drug abuse tracy ent. [facility]In the event this information is protected by the Federal Confidentiality of Alcohol and Drug Abuse Patient Records regulations: This inform ation has been disclosed to you from records protected by Federal confidentiality rul es ( The Federal rules restrict any use of the in formation to criminally investigate or prosecute any alcohol or drug abuse tracy ent. [facility]In the event this information is protected by the Federal Confidentiality of Alcohol and Drug Abuse Patient Records regulations: This inform ation has been disclosed to you from records protected by Federal confidentiality rul es ( The Federal rules restrict any use of the in formation to criminally investigate or prosecute any alcohol or drug abuse tracy ent. [facility]In the event this information is protected by the Federal Confidentiality of Alcohol and Drug Abuse Patient Records regulations: This inform ation has been disclosed to you from records protected by Federal confidentiality rul es ( The Federal rules restrict any use of the in formation to criminally investigate or prosecute any alcohol or drug abuse tracy ent. [facility]In the event this information is protected by the Federal Confidentiality of Alcohol and Drug Abuse Patient Records regulations: This inform ation has been disclosed to you from records protected by Federal confidentiality rul es ( The Federal rules restrict any use of the in formation to criminally investigate or prosecute any alcohol or drug abuse tracy ent. [facility]In the event this information is protected by the Federal Confidentiality of Alcohol and Drug Abuse Patient Records regulations: This inform ation has been disclosed to you from records protected by Federal confidentiality rul es ( The Federal rules restrict any use of the in formation to criminally investigate or prosecute any alcohol or drug abuse tracy ent. [facility]In the event this information is protected by the Federal Confidentiality of Alcohol and Drug Abuse Patient Records regulations: This inform ation has been disclosed to you from records protected by Federal confidentiality rul es ( The Federal rules restrict any use of the in formation to criminally investigate or prosecute any alcohol or drug abuse tracy ent. [facility]In the event this information is protected by the Federal Confidentiality of Alcohol and Drug Abuse Patient Records regulations: This inform ation has been disclosed to you from records protected by Federal confidentiality rul es ( The Federal rules restrict any use of the in formation to criminally investigate or prosecute any alcohol or drug abuse tracy ent. [facility]In the event this information is protected by the Federal Confidentiality of Alcohol and Drug Abuse Patient Records regulations: This inform ation has been disclosed to you from records protected by Federal confidentiality rul es ( The Federal rules restrict any use of the in formation to criminally investigate or prosecute any alcohol or drug abuse tracy ent. [facility]In the event this information is protected by the Federal Confidentiality of Alcohol and Drug Abuse Patient Records regulations: This inform ation has been disclosed to you from records protected by Federal confidentiality rul es ( The Federal rules restrict any use of the in formation to criminally investigate or prosecute any alcohol or drug abuse tracy ent. [facility]In the event this information is protected by the Federal Confidentiality of Alcohol and Drug Abuse Patient Records regulations: This inform ation has been disclosed to you from records protected by Federal confidentiality rul es ( The Federal rules restrict any use of the in formation to criminally investigate or prosecute any alcohol or drug abuse tracy ent. [facility]In the event this information is protected by the Federal Confidentiality of Alcohol and Drug Abuse Patient Records regulations: This inform ation has been disclosed to you from records protected by Federal confidentiality rul es ( The Federal rules restrict any use of the in formation to criminally investigate or prosecute any alcohol or drug abuse tracy ent. [facility]In the event this information is protected by the Federal Confidentiality of Alcohol and Drug Abuse Patient Records regulations: This inform ation has been disclosed to you from records protected by Federal confidentiality rul es ( The Federal rules restrict any use of the in formation to criminally investigate or prosecute any alcohol or drug abuse tracy ent. [facility]In the event this information is protected by the Federal Confidentiality of Alcohol and Drug Abuse Patient Records regulations: This inform ation has been disclosed to you from records protected by Federal confidentiality rul es ( The Federal rules restrict any use of the in formation to criminally investigate or prosecute any alcohol or drug abuse tracy ent. [facility]In the event this information is protected by the Federal Confidentiality of Alcohol and Drug Abuse Patient Records regulations: This inform ation has been disclosed to you from records protected by Federal confidentiality rul es ( The Federal rules restrict any use of the in formation to criminally investigate or prosecute any alcohol or drug abuse tracy ent. [facility]In the event this information is protected by the Federal Confidentiality of Alcohol and Drug Abuse Patient Records regulations: This inform ation has been disclosed to you from records protected by Federal confidentiality rul es ( The Federal rules restrict any use of the in formation to criminally investigate or prosecute any alcohol or drug abuse tracy ent. [facility]In the event this information is protected by the Federal Confidentiality of Alcohol and Drug Abuse Patient Records regulations: This inform ation has been disclosed to you from records protected by Federal confidentiality rul es ( The Federal rules restrict any use of the in formation to criminally investigate or prosecute any alcohol or drug abuse tracy ent. [facility]In the event this information is protected by the Federal Confidentiality of Alcohol and Drug Abuse Patient Records regulations: This inform ation has been disclosed to you from records protected by Federal confidentiality rul es ( The Federal rules restrict any use of the in formation to criminally investigate or prosecute any alcohol or drug abuse tracy ent. [facility]In the event this information is protected by the Federal Confidentiality of Alcohol and Drug Abuse Patient Records regulations: This inform ation has been disclosed to you from records protected by Federal confidentiality rul es ( The Federal rules restrict any use of the in formation to criminally investigate or prosecute any alcohol or drug abuse tracy ent. [facility]In the event this information is protected by the Federal Confidentiality of Alcohol and Drug Abuse Patient Records regulations: This inform ation has been disclosed to you from records protected by Federal confidentiality rul es ( The Federal rules restrict any use of the in formation to criminally investigate or prosecute any alcohol or drug abuse tracy ent. [facility]In the event this information is protected by the Federal Confidentiality of Alcohol and Drug Abuse Patient Records regulations: This inform ation has been disclosed to you from records protected by Federal confidentiality rul es ( The Federal rules restrict any use of the in formation to criminally investigate or prosecute any alcohol or drug abuse tracy ent. [facility]In the event this information is protected by the Federal Confidentiality of Alcohol and Drug Abuse Patient Records regulations: This inform ation has been disclosed to you from records protected by Federal confidentiality rul es ( The Federal rules restrict any use of the in formation to criminally investigate or prosecute any alcohol or drug abuse tracy ent. [facility]In the event this information is protected by the Federal Confidentiality of Alcohol and Drug Abuse Patient Records regulations: This inform ation has been disclosed to you from records protected by Federal confidentiality rul es ( The Federal rules restrict any use of the in formation to criminally investigate or prosecute any alcohol or drug abuse tracy ent. [facility]In the event this information is protected by the Federal Confidentiality of Alcohol and Drug Abuse Patient Records regulations: This inform ation has been disclosed to you from records protected by Federal confidentiality rul es ( The Federal rules restrict any use of the in formation to criminally investigate or prosecute any alcohol or drug abuse tracy ent. [facility]In the event this information is protected by the Federal Confidentiality of Alcohol and Drug Abuse Patient Records regulations: This inform ation has been disclosed to you from records protected by Federal confidentiality rul es ( The Federal rules restrict any use of the in formation to criminally investigate or prosecute any alcohol or drug abuse tracy ent. [facility]In the event this information is protected by the Federal Confidentiality of Alcohol and Drug Abuse Patient Records regulations: This inform ation has been disclosed to you from records protected by Federal confidentiality rul es ( The Federal rules restrict any use of the in formation to criminally investigate or prosecute any alcohol or drug abuse tracy ent. [facility]In the event this information is protected by the Federal Confidentiality of Alcohol and Drug Abuse Patient Records regulations: This inform ation has been disclosed to you from records protected by Federal confidentiality rul es ( The Federal rules restrict any use of the in formation to criminally investigate or prosecute any alcohol or drug abuse tracy ent. [facility]In the event this information is protected by the Federal Confidentiality of Alcohol and Drug Abuse Patient Records regulations: This inform ation has been disclosed to you from records protected by Federal confidentiality rul es ( The Federal rules restrict any use of the in formation to criminally investigate or prosecute any alcohol or drug abuse tracy ent. [facility]In the event this information is protected by the Federal Confidentiality of Alcohol and Drug Abuse Patient Records regulations: This inform ation has been disclosed to you from records protected by Federal confidentiality rul es ( The Federal rules restrict any use of the in formation to criminally investigate or prosecute any alcohol or drug abuse tracy ent. [facility]In the event this information is protected by the Federal Confidentiality of Alcohol and Drug Abuse Patient Records regulations: This inform ation has been disclosed to you from records protected by Federal confidentiality rul es ( The Federal rules restrict any use of the in formation to criminally investigate or prosecute any alcohol or drug abuse tracy ent. [facility]In the event this information is protected by the Federal Confidentiality of Alcohol and Drug Abuse Patient Records regulations: This inform ation has been disclosed to you from records protected by Federal confidentiality rul es ( The Federal rules restrict any use of the in formation to criminally investigate or prosecute any alcohol or drug abuse tracy ent. [facility]In the event this information is protected by the Federal Confidentiality of Alcohol and Drug Abuse Patient Records regulations: This inform ation has been disclosed to you from records protected by Federal confidentiality rul es ( The Federal rules restrict any use of the in formation to criminally investigate or prosecute any alcohol or drug abuse tracy ent. [facility]In the event this information is protected by the Federal Confidentiality of Alcohol and Drug Abuse Patient Records regulations: This inform ation has been disclosed to you from records protected by Federal confidentiality rul es ( The Federal rules restrict any use of the in formation to criminally investigate or prosecute any alcohol or drug abuse tracy ent. [facility]In the event this information is protected by the Federal Confidentiality of Alcohol and Drug Abuse Patient Records regulations: This inform ation has been disclosed to you from records protected by Federal confidentiality rul es ( The Federal rules restrict any use of the in formation to criminally investigate or prosecute any alcohol or drug abuse tracy ent. [facility]In the event this information is protected by the Federal Confidentiality of Alcohol and Drug Abuse Patient Records regulations: This inform ation has been disclosed to you from records protected by Federal confidentiality rul es ( The Federal rules restrict any use of the in formation to criminally investigate or prosecute any alcohol or drug abuse tracy ent. [facility]In the event this information is protected by the Federal Confidentiality of Alcohol and Drug Abuse Patient Records regulations: This inform ation has been disclosed to you from records protected by Federal confidentiality rul es ( The Federal rules restrict any use of the in formation to criminally investigate or prosecute any alcohol or drug abuse tracy ent. [facility]In the event this information is protected by the Federal Confidentiality of Alcohol and Drug Abuse Patient Records regulations: This inform ation has been disclosed to you from records protected by Federal confidentiality rul es ( The Federal rules restrict any use of the in formation to criminally investigate or prosecute any alcohol or drug abuse tracy ent. [facility]In the event this information is protected by the Federal Confidentiality of Alcohol and Drug Abuse Patient Records regulations: This inform ation has been disclosed to you from records protected by Federal confidentiality rul es ( The Federal rules restrict any use of the in formation to criminally investigate or prosecute any alcohol or drug abuse tracy ent. [facility]In the event this information is protected by the Federal Confidentiality of Alcohol and Drug Abuse Patient Records regulations: This inform ation has been disclosed to you from records protected by Federal confidentiality rul es ( The Federal rules restrict any use of the in formation to criminally investigate or prosecute any alcohol or drug abuse tracy ent. [facility]In the event this information is protected by the Federal Confidentiality of Alcohol and Drug Abuse Patient Records regulations: This inform ation has been disclosed to you from records protected by Federal confidentiality rul es ( The Federal rules restrict any use of the in formation to criminally investigate or prosecute any alcohol or drug abuse tracy ent. [facility]In the event this information is protected by the Federal Confidentiality of Alcohol and Drug Abuse Patient Records regulations: This inform ation has been disclosed to you from records protected by Federal confidentiality rul es ( The Federal rules restrict any use of the in formation to criminally investigate or prosecute any alcohol or drug abuse tracy ent. [facility]In the event this information is protected by the Federal Confidentiality of Alcohol and Drug Abuse Patient Records regulations: This inform ation has been disclosed to you from records protected by Federal confidentiality rul es ( The Federal rules restrict any use of the in formation to criminally investigate or prosecute any alcohol or drug abuse tracy ent. [facility]In the event this information is protected by the Federal Confidentiality of Alcohol and Drug Abuse Patient Records regulations: This inform ation has been disclosed to you from records protected by Federal confidentiality rul es ( The Federal rules restrict any use of the in formation to criminally investigate or prosecute any alcohol or drug abuse tracy ent. [facility]In the event this information is protected by the Federal Confidentiality of Alcohol and Drug Abuse Patient Records regulations: This inform ation has been disclosed to you from records protected by Federal confidentiality rul es ( The Federal rules restrict any use of the in formation to criminally investigate or prosecute any alcohol or drug abuse tracy ent. [facility]In the event this information is protected by the Federal Confidentiality of Alcohol and Drug Abuse Patient Records regulations: This inform ation has been disclosed to you from records protected by Federal confidentiality rul es ( The Federal rules restrict any use of the in formation to criminally investigate or prosecute any alcohol or drug abuse tracy ent. [facility] Reason for Visit (unrecognized section [...] medications and diabetic supplies be sent to [facility] in [place]. Reason Onset Date Comments Refill Request 07/24/2022 Reason Comments Consult Colonoscopy Reason Onset Date Comments Refill Request 07/05/2022 Refill Request 08/16/2022 Reason Onset Date Comments Refill Request 08/27/2022 Reason Onset Date Comments Refill Request 10/04/2022 Reason Comments Prescription Clarification Reason Comments Results No answer and VM not set up. CloudCover message sent to request patient call in [...] Care 01/02/2023 TCM initial outreach -dc'd from [facility] 01/01/23 Reason Comments Missed Appointment Pharmacy visit reschedule Reason Comments Medication Request Reason Onset Date Comments Transition Of Care 01/14/2023 TCM follow-up readmi tted to hospital Reason Onset Date Comments Transition Of Care 01/17/2023 TCM Pharmacy-Hospita l discharge 01/16/23 Reason Comments [facility] Reason Onset Date Comments Transition Of Care [...] Comments Transition Of Care 02/21/2023 TCM Initial [facility] Discharge 02/20/23 Specialty Diagnoses / Procedures Referred By Contact Refer red To Contact HOME [facility] SERVICES Home Care IND [address] [place] [address] Phone: Referral ID Status Reason Start Date Expiration Date Visits Requ ested Visits Authorized [id number] 1 1 Care Teams (unrecognized section and con tent) Nut Tightener Relationship Specialty Start Date End Date Panfilo Oreilly MD PCP - General Family Practice 02/12/17 [address] [place], [place] [id number] Shreya Mccray Endocrinology 07/23/18 [place] Dumont Specialty Export Packer Pulmonary Disease 12/23/18 [address] [place], [place] [address] Brandee Cotter (Agricultural Research Engineer) Consulting Endocrinology 11/09/19 [address] [place], [place] [id number] [place] Dumont Consulting Pulmonary Disease 11/12/19 [address] [place] [address] Robert Sanchez, [facility] Pharmacist Pharmacy 09/06/21 [address] [place] [address] [facility] 12/17/17 [facility] 07/23/18 [facility] 06/20/20 Nut Tightener Relationship Specialty Start Date End Date Panfilo Oreilly MD PCP - General Family Practice 02/12/17 [address] [place] [address] Shreya Mccray Endocrinology 07/23/18 [place] Dum[place] Specialty Export Packer Pulmonary Disease 12/23/18 [address] [place] [address] Brandee Cotter (Agricultural Research Engineer) Consulting Endocrinology 11/09/19 [address] [place] [address] [place] Dumont Consulting Pulmonary Disease 11/12/19 [address] [place] [address] Robert Sanchez [facility] Pharmacist Pharmacy 09/06/21 [address] [place] [address] [facility] 12/17/17 [facility] 07/23/18 [facility] 06/20/20 Nut Tightener Relationship Specialty Start Date End Date Panfilo Oreilly MD PCP - General Family Practice 02/12/17 [address] [facility] [address] Shreya Mccray Endocrinology 07/23/18 [place] Dumont Specialty Export Packer Pulmonary Disease 12/23/18 [address] [place] [address] Brandee Cotter (Agricultural Research Engineer) Consulting Endocrinology 11/09/19 [address] [place] [address] [place] Dumont Consulting Pulmonary Disease 11/12/19 [address] [place] [address] Robert Sanchez, [facility] Pharmacist Pharmacy 09/06/21 [address] [place] [address] [employer] 12/17/17 [facility] 07/23/18 [facility] 06/20/20 Nut Tightener Relationship Specialty Start Date End Date Panfilo Oreilly MD PCP - General Family Practice 02/12/17 [address] [facility] [address] Shreya Mccray Endocrinology 07/23/18 [place] Specialty Export Packer Pulmonary Disease 12/23/18 [address] [place] [address] Brandee Cotter (Agricultural Research Engineer) Consulting Endocrinology 11/09/19 [address] [place] [address] [place] Dumont Consulting Pulmonary Disease 11/12/19 [address] [place] [address] Robert Sanchez, [facility] Pharmacist Pharmacy 09/06/21 [address] [place] [address] [employer] 12/17/17 [facility] 07/23/18 [facility] 06/20/20 Nut Tightener Relationship Specialty Start Date End Date Panfilo Oreilly MD PCP - General Family Practice 02/12/17 [address] [place] [address] Shreya Mccray Endocrinology 07/23/18 [place] Dum[place] Specialty Export Packer Pulmonary Disease 12/23/18 [address] [place] [address] Brandee Cotter (Agricultural Research Engineer) Consulting Endocrinology 11/09/19 [address] [place] [address] [place] Dumont Consulting Pulmonary Disease 11/12/19 [address] [place] [address] Robert Sanchez, [facility] Pharmacist Pharmacy 09/06/21 [address] [place] [address] [facility] 12/17/17 [facility] 07/23/18 [facility] 06/20/20 Nut Tightener Relationship Specialty Start Date End Date Panfilo Oreilly MD PCP - General Family Practice 02/12/17 [address] [facility] [address] Shreya Mccray Endocrinology 07/23/18 [place] Specialty Export Packer Pulmonary Disease 12/23/18 [address] [place] [address] Brandee Cotter (Agricultural Research Engineer) Consulting Endocrinology 11/09/19 [address] [place], [place] [id number] [place] Dumont Consulting Pulmonary Disease 11/12/19 [address] [place] [address] [facility] 09/06/21 [address] [place] [address] [employer] 12/17/17 [facility] 07/23/18 [facility] 06/20/20 Nut Tightener Relationship Specialty Start Date End Date Panfilo Oreilly MD PCP - General Family Practice 02/12/17 [address] [place] [address] Shreya Mccray Endocrinology 07/23/18 [place] Dumont Specialty Export Packer Pulmonary Disease 12/23/18 [address] [place] [address] Brandee Cotter (Agricultural Research Engineer) Consulting Endocrinology 11/09/19 [address] [place] [address] [place] Dumont Consulting Pulmonary Disease 11/12/19 [address] [place] [address] Robert Sanchez [facility] Pharmacist Pharmacy 09/06/21 [address] [place] [address] [employer] 12/17/17 [facility] 07/23/18 [facility] 06/20/20 Nut Tightener Relationship Specialty Start Date End Date Panfilo Oreilly MD PCP - General Family Practice 02/12/17 [address] [place] [address] Shreya Mccray Endocrinology 07/23/18 [place] Dumont Specialty Export Packer Pulmonary Disease 12/23/18 [address] [place] [address] Brandee Cotter (Agricultural Research Engineer) Consulting Endocrinology 11/09/19 [address] [place] [address] [place] Dumont Consulting Pulmonary Disease 11/12/19 [address] [place] [address] Robert Sanchez [facility] Pharmacist Pharmacy 09/06/21 [address] [place] [address] [employer] 12/17/17 [facility] 07/23/18 [facility] 06/20/20 Nut Tightener Relationship Specialty Start Date End Date Panfilo Oreilly MD PCP - General Family Practice 02/12/17 [address] [place] [address] Shreya Mccray Endocrinology 07/23/18 [place] Dumont Specialty Export Packer Pulmonary Disease 12/23/18 [address] [place] [address] Brandee Cotter (Agricultural Research Engineer) Consulting Endocrinology 11/09/19 [address] [place], [place] [id number] [place] Dumont Consulting Pulmonary Disease 11/12/19 [address] [place] [address] Robert Sanchez, [facility] Pharmacist Pharmacy 09/06/21 [address] [place] [address] [employer] 12/17/17 [facility] 07/23/18 [facility] 06/20/20 Nut Tightener Relationship Specialty Start Date End Date Panfilo Oreilly MD PCP - General Family Practice 02/12/17 [address] [place] [address] Shreya Mccray Endocrinology 07/23/18 [place] Specialty Export Packer Pulmonary Disease 12/23/18 [address] [place] [address] Brandee Cotter (Agricultural Research Engineer) Consulting Endocrinology 11/09/19 [address] [place], [place] [id number] [place] Dumont Consulting Pulmonary Disease 11/12/19 [address] [place] [address] Robert Sanchez [facility] Pharmacist Pharmacy 09/06/21 [address] [place] [address] [employer] 12/17/17 [facility] 07/23/18 [facility] 06/20/20 Nut Tightener Relationship Specialty Start Date End Date Panfilo Oreilly MD PCP - General Family Practice 02/12/17 [address] [place] [address] Shreya Mccray Endocrinology 07/23/18 [place] Specialty Export Packer Pulmonary Disease 12/23/18 [address] [place] [address] Brandee Cotter (Agricultural Research Engineer) Consulting Endocrinology 11/09/19 [address] [place] [address] [place] Dumont Consulting Pulmonary Disease 11/12/19 [address] [place] [address] Robert Sanchez [facility] Pharmacist Pharmacy 09/06/21 [address] [place] [address] [employer] 12/17/17 [facility] 07/23/18 [facility] 06/20/20 Nut Tightener Relationship Specialty Start Date End Date Panfilo Oreilly MD PCP - General Family Practice 02/12/17 [address] [place] [address] Shreya Mccray Endocrinology 07/23/18 [place] Specialty Export Packer Pulmonary Disease 12/23/18 [address] [place] [address] Brandee Cotter (Agricultural Research Engineer) Consulting Endocrinology 11/09/19 [address] [place], [place] [id number] [place] Dumont Consulting Pulmonary Disease 11/12/19 [address] [place] [address] Robert Sanchez, [facility] Pharmacist Pharmacy 09/06/21 [address] [place] [address] [employer] 12/17/17 [facility] 07/23/18 [facility] 06/20/20 Nut Tightener Relationship Specialty Start Date End Date Panfilo Oreilly MD PCP - General Family Practice 02/12/17 [address] [place] [address] Shreya Mccray Endocrinology 07/23/18 [place] Dumont Specialty Export Packer Pulmonary Disease 12/23/18 [address] [place] [address] Brandee Cotter (Agricultural Research Engineer) Consulting Endocrinology 11/09/19 [address] [place] [address] [place] Dumont Consulting Pulmonary Disease 11/12/19 [address] [place] [address] Robert Sanchez [facility] Pharmacist Pharmacy 09/06/21 [address] [place] [address] [employer] 12/17/17 [facility] 07/23/18 [facility] 06/20/20 Nut Tightener Relationship Specialty Start Date End Date Panfilo Oreilly MD PCP - General Family Practice 02/12/17 [address] [place] [address] Shreya Mccray Endocrinology 07/23/18 [place] Dumont Specialty Export Packer Pulmonary Disease 12/23/18 [address] [place] [address] Brandee Cotter (Agricultural Research Engineer) Consulting Endocrinology 11/09/19 [address] [place] [address] [place] Dumont Consulting Pulmonary Disease 11/12/19 [address] [place] [address] Robert Sanchez, [facility] Pharmacist Pharmacy 09/06/21 [address] [place] [address] [facility] 12/17/17 [facility] 07/23/18 [facility] 06/20/20 Nut Tightener Relationship Specialty Start Date End Date Panfilo Oreilly MD PCP - General Family Practice 02/12/17 [address] [place] [address] Shreya Mccray Endocrinology 07/23/18 [place] Specialty Export Packer Pulmonary Disease 12/23/18 [address] [place] [address] Brandee Cotter (Agricultural Research Engineer) Consulting Endocrinology 11/09/19 [address] [place], [place] [id number] [place] Dumont Consulting Pulmonary Disease 11/12/19 [address] [place] [address] Robert Sanchez [facility] Pharmacist Pharmacy 09/06/21 [address] [place] [address] [facility] 12/17/17 [facility] 07/23/18 [facility] 06/20/20 Nut Tightener Relationship Specialty Start Date End Date Panfilo Oreilly MD PCP - General Family Practice 02/12/17 [address] [place] [address] Shreya Mccray Endocrinology 07/23/18 [place] Dumont Specialty Export Packer Pulmonary Disease 12/23/18 [address] [place] [address] Brandee Cotter (Agricultural Research Engineer) Consulting Endocrinology 11/09/19 [address] [place] [address] [place] Dumont Consulting Pulmonary Disease 11/12/19 [address] [place] [address] [facility] 09/06/21 [address] [place] [address] [facility] 12/17/17 [facility] 07/23/18 [facility] 06/20/20 Nut Tightener Relationship Specialty Start Date End Date Panfilo Oreilly MD PCP - General Family Practice 02/12/17 [address] [place] [address] Shreya Mccray Endocrinology 07/23/18 [place] Dum[place] Specialty Export Packer Pulmonary Disease 12/23/18 [address] [place] [address] Brandee Cotter (Agricultural Research Engineer) Consulting Endocrinology 11/09/19 [address] [place] [address] [place] Dumont Consulting Pulmonary Disease 11/12/19 [address] [place] [address] [facility] 09/06/21 [address] [place] [address] [facility] 12/17/17 [facility] 07/23/18 [facility] 06/20/20 Nut Tightener Relationship Specialty Start Date End Date Panfilo Oreilly MD PCP - General Family Practice 02/12/17 [address] [place] [address] Shreya Mccray MD Endocrinology 07/23/18 [place] Specialty Export Packer Pulmonary Disease 12/23/18 [address] [place] [address] Brandee Cotter (Agricultural Research Engineer) Consulting Endocrinology 11/09/19 [address] [place], [place] [id number] [place] Dumont Consulting Pulmonary Disease 11/12/19 [address] [place] [address] Robert Sanchez [facility] Pharmacist Pharmacy 09/06/21 [address] [place] [address] [facility] 12/17/17 [facility] 07/23/18 [facility] 06/20/20 Nut Tightener Relationship Specialty Start Date End Date Panfilo Oreilly MD PCP - General Family Practice 02/12/17 [address] [place] [address] Shreya Mccray MD Endocrinology 07/23/18 [place] Specialty Export Packer Pulmonary Disease 12/23/18 [address] [place] [address] Brandee Cotter (Agricultural Research Engineer) Consulting Endocrinology 11/09/19 [address] [place] [address] [place] Dumont Consulting Pulmonary Disease 11/12/19 [address] [place] [address] [facility] 09/06/21 [address] [place] [address] [employer] 12/17/17 [facility] 07/23/18 [facility] 06/20/20 Nut Tightener Relationship Specialty Start Date End Date Panfilo Oreilly MD PCP - General Family Practice 02/12/17 [address] [place] [address] Shreya Mccray MD Endocrinology 07/23/18 [place] Specialty Export Packer Pulmonary Disease 12/23/18 [address] [place] [address] Brandee Cotter (Agricultural Research Engineer) Consulting Endocrinology 11/09/19 [address] [place] [address] [place] Dumont Consulting Pulmonary Disease 11/12/19 [address] [place] [address] Robert Sanchez [facility] Pharmacist Pharmacy 09/06/21 [address] [place] [address] [facility] 12/17/17 [facility] 07/23/18 [facility] 06/20/20 Nut Tightener Relationship Specialty Start Date End Date Panfilo Oreilly MD PCP - General Family Practice 02/12/17 [address] [place] [address] Shreya Mccray MD Endocrinology 07/23/18 [place] Specialty Export Packer Pulmonary Disease 12/23/18 [address] [place] [address] Brandee Cotter (Agricultural Research Engineer) Consulting Endocrinology 11/09/19 [address] [place] [address] [place] Dumont Consulting Pulmonary Disease 11/12/19 [address] [place] [address] Robert Sanchez [facility] Pharmacist Pharmacy 09/06/21 [address] [place] [address] [facility] 12/17/17 [facility] 07/23/18 [facility] 06/20/20 Nut Tightener Relationship Specialty Start Date End Date Panfilo Oreilly MD PCP - General Family Practice 02/12/17 [address] [place] [address] Shreya Mccray MD Endocrinology 07/23/18 [place]ont Specialty Export Packer Pulmonary Disease 12/23/18 [address] [place] [address] Brandee Cotter (Agricultural Research Engineer) Consulting Endocrinology 11/09/19 [address] [place] [address] [place] Dumont Consulting Pulmonary Disease 11/12/19 [address] [place] [address] Robert Sanchez, [facility] Pharmacist Pharmacy 09/06/21 [address] [place] [address] [employer] 12/17/17 [facility] 07/23/18 [facility] 06/20/20 Nut Tightener Relationship Specialty Start Date End Date Panfilo Oreilly MD PCP - General Family Practice 02/12/17 [address] [place] [address] Shreya Mccray MD Endocrinology 07/23/18 [place] Specialty Export Packer Pulmonary Disease 12/23/18 [address] [place] [address] Brandee Cotter (Agricultural Research Engineer) Consulting Endocrinology 11/09/19 [address] [place] [address] [place] Dumont Consulting Pulmonary Disease 11/12/19 [address] [place] [address] Robert Sanchez [facility] Pharmacist Pharmacy 09/06/21 [address] [place] [address] [facility] 12/17/17 [facility] 07/23/18 [facility] 06/20/20 Nut Tightener Relationship Specialty Start Date End Date Panfilo Oreilly MD PCP - General Family Practice 02/12/17 [address] [place] [address] Shreya Mccray MD Endocrinology 07/23/18 [place] Dumont Specialty Export Packer Pulmonary Disease 12/23/18 [address] [place] [address] Brandee Cotter (Agricultural Research Engineer) Consulting Endocrinology 11/09/19 [address] [place], [place] [id number] [place] Dumont Consulting Pulmonary Disease 11/12/19 [address] [place] [address] Robert Sanchez [facility] Pharmacist Pharmacy 09/06/21 [address] [place] [address] [facility] 12/17/17 [facility] 07/23/18 [facility] 06/20/20 Nut Tightener Relationship Specialty Start Date End Date Panfilo Oreilly MD PCP - General Family Practice 02/12/17 [address] [place] [address] Shreya Mccray MD Endocrinology 07/23/18 [place]ont Specialty Export Packer Pulmonary Disease 12/23/18 [address] [place] [address] Brandee Cotter (Agricultural Research Engineer) Consulting Endocrinology 11/09/19 [address] [place] [address] [place] Dumont Consulting Pulmonary Disease 11/12/19 [address] [place] [address] Rboert Sanchez, [facility] Pharmacist Pharmacy 09/06/21 [address] [place] [address] [facility] 12/17/17 [facility] 07/23/18 [facility] 06/20/20 Nut Tightener Relationship Specialty Start Date End Date Panfilo Oreilly MD PCP - General Family Medicine 02/12/17 [address] [place] [address] Shreya Mccray MD Endocrinology 07/23/18 [place] Dumont Specialty Export Packer Pulmonary Disease 12/23/18 [address] [place] [address] Brandee Cotter (Agricultural Research Engineer) Consulting Endocrinology 11/09/19 [address] [place] [address] [place] Dumont Consulting Pulmonary Disease 11/12/19 [address] [place] [address] Robert Sanchez [facility] Pharmacist Pharmacy 09/06/21 [address] [place] [address] [facility] 12/17/17 [facility] 07/23/18 [facility] 06/20/20 Nut Tightener Relationship Specialty Start Date End Date Panfilo Oreilly MD PCP - General Family Medicine 02/12/17 [address] [place] [address] Shreya Mccray MD Endocrinology 07/23/18 [place] Dumont Specialty Export Packer Pulmonary Disease 12/23/18 [address] [place] [address] Brandee Cotter (Agricultural Research Engineer) Consulting Endocrinology 11/09/19 [address] [place], [place] [id number] [place] Dumont Consulting Pulmonary Disease 11/12/19 [address] [place] [address] Robert Sanchez [facility] Pharmacist Pharmacy 09/06/21 [address] [place] [address] [facility] 12/17/17 [facility] 07/23/18 [facility] 06/20/20 Nut Tightener Relationship Specialty Start Date End Date Panfilo Oreilly MD PCP - General Family Medicine 02/12/17 [address] [place] [address] Shreya Mccray MD Endocrinology 07/23/18 [place]ont Specialty Export Packer Pulmonary Disease 12/23/18 [address] [place] [address] Brandee Cotter (Agricultural Research Engineer) Consulting Endocrinology 11/09/19 [address] [place], [place] [id number] [place] Dumont Consulting Pulmonary Disease 11/12/19 [address] [place] [address] Robert Sanchez [facility] Pharmacist Pharmacy 09/06/21 [address] [place] [address] [facility] 12/17/17 [facility] 07/23/18 [facility] 06/20/20 Nut Tightener Relationship Specialty Start Date End Date Panfilo Oreilly MD PCP - General Family Medicine 02/12/17 [address] [place] [address] Shreya Mccray MD Endocrinology 07/23/18 [place] Specialty Export Packer Pulmonary Disease 12/23/18 [address] [place] [address] Brandee Cotter (Agricultural Research Engineer) Consulting Endocrinology 11/09/19 [address] [place], [place] [id number] [place] Dumont Consulting Pulmonary Disease 11/12/19 [address] [place] [address] Robert Sanchez [facility] Pharmacist Pharmacy 09/06/21 [address] [place] [address] [facility] 12/17/17 [facility] 07/23/18 [facility] 06/20/20 Nut Tightener Relationship Specialty Start Date End Date Panfilo Oreilly MD PCP - General Family Medicine 02/12/17 [address] [place] [address] Shreya Mccray MD Endocrinology 07/23/18 [place] Specialty Export Packer Pulmonary Disease 12/23/18 [address] [place] [address] Brandee Cotter (Agricultural Research Engineer) Consulting Endocrinology 11/09/19 [address] [place] [address] [place] Dumont Consulting Pulmonary Disease 11/12/19 [address] [place] [address] Robert Sanchez [facility] Pharmacist Pharmacy 09/06/21 [address] [place] [address] [facility] 12/17/17 [facility] 07/23/18 [facility] 06/20/20 Nut Tightener Relationship Specialty Start Date End Date Panfilo Oreilly MD PCP - General Family Medicine 02/12/17 [address] [facility] [address] Shreya Mccray MD Endocrinology 07/23/18 [address] [place] [address] [place] Dumont Specialty Export Packer Pulmonary Disease 12/23/18 [address] [place] [address] Brandee Cotter (Agricultural Research Engineer) Consulting Endocrinology 11/09/19 [address] [place], [place] [id number] [place] Dumont Consulting Pulmonary Disease 11/12/19 [address] [place] [address] Robert Sanchez, [facility] Pharmacist Pharmacy 09/06/21 [address] [place] [address] [facility] 12/17/17 [facility] 07/23/18 [facility] 06/20/20 Nut Tightener Relationship Specialty Start Date End Date Panfilo Oreilly MD PCP - General Family Medicine 02/12/17 [address] [place] [address] Shreya Mccray MD Endocrinology 07/23/18 [address] [place] [address] Beriln Dumont Specialty Export Packer Pulmonary Disease 12/23/18 [address] [place] [address] Brandee Cotter (Agricultural Research Engineer) Consulting Endocrinology 11/09/19 [address] [place] [address] [place] Dumont Consulting Pulmonary Disease 11/12/19 [address] [place] [address] Robert Sanchez [facility] Pharmacist Pharmacy 09/06/21 [address] [place] [address] [facility] 12/17/17 [facility] 07/23/18 [facility] 06/20/20 Nut Tightener Relationship Specialty Start Date End Date Panfilo Oreilly MD PCP - General Family Medicine 02/12/17 [address] [place] [address] Shreya Mccray MD Endocrinology 07/23/18 [address] [place] [address] [place] Dumont Specialty Export Packer Pulmonary Disease 12/23/18 [address] [place] [address] Brandee Cotter (Agricultural Research Engineer) Consulting Endocrinology 11/09/19 [address] [place] [address] [place] Dumont Consulting Pulmonary Disease 11/12/19 [address] [place] [address] Robert Sanchez, [facility] Pharmacist Pharmacy 09/06/21 [address] [place] [address] [facility] 12/17/17 [facility] 07/23/18 [facility] 06/20/20 Nut Tightener Relationship Specialty Start Date End Date Panfilo Oreilly MD PCP - General Family Medicine 02/12/17 [address] [facility] [address] Shreya Mccray MD Endocrinology 07/23/18 [address] [place] [address] [place] [employer] Specialty Export Packer Pulmonary Disease 12/23/18 [address] [place] [address] Brandee Cotter (Agricultural Research Engineer) Consulting Endocrinology 11/09/19 [address] [place], [place] [id number] [place]ont Consulting Pulmonary Disease 11/12/19 [address] [place] [address] Robert Sanchez [facility] Pharmacist Pharmacy 09/06/21 1740 [place] [address] [employer] 12/17/17 [facility] 07/23/18 [facility] Home Patients 06/20/20 Nut Tightener Relationship Specialty Start Date End Date Panfilo Oreilly MD PCP - General Family Medicine 02/12/17 1740 [place] [address] Shreya Mccray MD Endocrinology 07/23/18 1740 [place] [address] [place] [employer] Specialty Export Packer Pulmonary Disease 12/23/18 [address] [place] [address] Brandee Cotter (Agricultural Research Engineer) Consulting Endocrinology 11/09/19 [address] [place] [address] [place] Dumont Consulting Pulmonary Disease 11/12/19 [address] [place] [address] Robert Sanchez [facility] Pharmacist Pharmacy 09/06/21 17[address] [place] [address] [employer] 12/17/17 [facility] 07/23/18 [facility] Home Patients 06/20/20 Nut Tightener Relationship Specialty Start Date End Date Panfilo Oreilly MD PCP - General Family Medicine 02/12/17 1740 [place] [address] Shreya Mccray MD Endocrinology 07/23/18 17[address] [place] [address] [place] [employer] Specialty Export Packer Pulmonary Disease 12/23/18 [address] [place] [address] Brandee Cotter (Agricultural Research Engineer) Consulting Endocrinology 11/09/19 [address] [place] [address] [place] Dumont Consulting Pulmonary Disease 11/12/19 [address] [place] [address] Robert Sanchez [facility] Pharmacist Pharmacy 09/06/21 [address] [place] [address] [employer] 12/17/17 [facility] 07/23/18 [facility] Home Patients 06/20/20 Nut Tightener Relationship Specialty Start Date End Date Panfilo Oreilly MD PCP - General Family Medicine 02/12/17 [address] [place] [address] Shreya Mccray MD Endocrinology 07/23/18 1740 [place] [address] [place] [employer] Specialty Export Packer Pulmonary Disease 12/23/18 [address] [place] [address] Brandee Cotter (Agricultural Research Engineer) Consulting Endocrinology 11/09/19 [address] [place], [place] [id number] [place] Dumont Consulting Pulmonary Disease 11/12/19 [address] [place] [address] Robert Sanchez [facility] Pharmacist Pharmacy 09/06/21 [address] [place] [address] [employer] 12/17/17 [facility] 07/23/18 [facility] Home Patients 06/20/20 Nut Tightener Relationship Specialty Start Date End Date Panfilo Oreilly MD PCP - General Family Medicine 02/12/17 [address]40 [place] [address] Shreya Mccray MD Endocrinology 07/23/18 [address] [place] [address] [place] [employer] Specialty Export Packer Pulmonary Disease 12/23/18 [address] [place] [address] Brandee Cotter (Agricultural Research Engineer) Consulting Endocrinology 11/09/19 [address] [place] [address] [place] Dumont Consulting Pulmonary Disease 11/12/19 [address] [place] [address] Robert Sanchez [facility] Pharmacist Pharmacy 09/06/21 [address] [place] [address] [employer] 12/17/17 [facility] 07/23/18 [facility] Home Patients 06/20/20 Nut Tightener Relationship Specialty Start Date End Date Panfilo Oreilly MD PCP - General Family Medicine 02/12/17 [address] [place] [address] Shreya Mccray MD Endocrinology 07/23/18 [address] [place] [address] [place] [employer] Specialty Export Packer Pulmonary Disease 12/23/18 [address] [place] [address] Brandee Cotter (Agricultural Research Engineer) Consulting Endocrinology 11/09/19 [address] [place] [address] [place] Dumont Consulting Pulmonary Disease 11/12/19 [address] [place] [address] Robert Sanchez [facility] Pharmacist Pharmacy 09/06/21 [address] [place] [address] [employer] 12/17/17 [facility] 07/23/18 [facility] Home Patients 06/20/20 Nut Tightener Relationship Specialty Start Date End Date Panfilo Oreilly MD PCP - General Family Medicine 02/12/17 [address] [place] [address] Shreya Mccray MD Endocrinology 07/23/18 [address] [place] [address] [place] [employer] Specialty Export Packer Pulmonary Disease 12/23/18 [address] [place] [address] Brandee Cotter (Agricultural Research Engineer) Consulting Endocrinology 11/09/19 [address] [place] [address] [place] Dumont Consulting Pulmonary Disease 11/12/19 [address] [place] [address] Robert Sanchez [facility] Pharmacist Pharmacy 09/06/21 [address] [place] [address] [employer] 12/17/17 [facility] 07/23/18 [facility] Home Patients 06/20/20 Nut Tightener Relationship Specialty Start Date End Date Panfilo Oreilly MD PCP - General Family Medicine 02/12/17 [address] [place] [address] Shreya Mccray MD Endocrinology 07/23/18 [address] [place] [address] [place] [employer] Specialty Export Packer Pulmonary Disease 12/23/18 [address] [place] [address] Brandee Cotter (Agricultural Research Engineer) Consulting Endocrinology 11/09/19 [address] [place], [place] [id number] [place] Dum[place] Consulting Pulmonary Disease 11/12/19 [address] [place] [address] Robert Sanchez, [facility] Pharmacist Pharmacy 09/06/21 [address] [place] [address] [employer] 12/17/17 [facility] 07/23/18 [facility] Home Patients 06/20/20 Nut Tightener Relationship Specialty Start Date End Date Panfilo Oreilly MD PCP - General Family Medicine 02/12/17 [address] [place] [address] Shreya Mccray MD Endocrinology 07/23/18 [address] [place] [address] [place] [employer] Specialty Export Packer Pulmonary Disease 12/23/18 [address] [place] [address] Brandee Cotter (Agricultural Research Engineer) Consulting Endocrinology 11/09/19 [address] [place], [place] [id number] [place] Consulting Pulmonary Disease 11/12/19 [address] [place] [address] Robert Sanchez [facility] Pharmacist Pharmacy 09/06/21 [address] [place] [address] [employer] 12/17/17 [facility] 07/23/18 [facility] Home Patients 06/20/20 Nut Tightener Relationship Specialty Start Date End Date Panfilo Oreilly, PCP - General Family Medicine 02/12/17 [address] [place] [address] Shreya Mccray, Endocrinology 07/23/18 17[address] [place] [address] [place] [employer] Specialty Export Packer Pulmonary Disease 12/23/18 [address] [place] [address] Brandee Cotter Consulting Endocrinology 11/09/19 (Agricultural Research Engineer) [address] [place] [address] [place] Dum[place] Consulting Pulmonary Disease 11/12/19 [address] [place] [address] Robert Sanchez [facility] Pharmacist Pharmacy 09/06/21 [address] [place] [address] Brissa Kilpatrick, Transitional Care Pharmacy 01/02/23 [facility] Pharmacist [address] [place] [address] Mimi Crowley, sales analytics manager 01/01/23 01/29/23 Store Sales Manager [employer] 12/17/17 [facility] 07/23/18 [facility] Home Patients 06/20/20 Nut Tightener Relationship Specialty Start Date End Date Panfilo Oreilly, PCP - General Family Medicine 02/12/17 [address] [place], [place] 647041 Shreya Mccray, Endocrinology 07/23/18 1740 [place], [place] 710861 [place] [employer] Specialty Export Packer Pulmonary Disease 12/23/18 [address] [place] [address] Brandee Cotter Consulting Endocrinology 11/09/19 (Agricultural Research Engineer) [address] [place] [address] [place] Dum[place] Consulting Pulmonary Disease 11/12/19 [address] [place] [address] Robert Sanchez, [facility] Pharmacist Pharmacy 09/06/21 [address] [place] [address] Brissa Kilpatrick, Transitional Care Pharmacy 01/02/23 [facility] Pharmacist [address] [place] [address] Mimi Crowley, sales analytics manager 01/01/23 01/29/23 Store Sales Manager [employer] 12/17/17 [facility] 07/23/18 [facility] Home Patients 06/20/20 Nut Tightener Relationship Specialty Start Date End Date Panfilo Oreilly, PCP - General Family Medicine 02/12/17 1740 [place], [place] [address] Shreya Mccray, Endocrinology 07/23/18 [address] [place], [place] [id number] [place] Specialty Export Packer Pulmonary Disease 12/23/18 [address] [place] [address] Brandee Cotter Consulting Endocrinology 11/09/19 (Agricultural Research Engineer) [address] [place], [place] [id number] [place] Consulting Pulmonary Disease 11/12/19 [address] [place] [address] Robert Sanchez, [facility] Pharmacist Pharmacy 09/06/21 [address] [place] [address] Brissa Kilpatrick, Transitional Care Pharmacy 01/02/23 [facility] Pharmacist [address] [place] [address] Mimi Crowley, sales analytics manager 01/01/23 01/29/23 Store Sales Manager [employer] 12/17/17 [facility] 07/23/18 [facility] Home Patients 06/20/20 Nut Tightener Relationship Specialty Start Date End Date Panfilo Oreilly, PCP - General Family Medicine 02/12/17 [address] [place], [place] 142101 Shreya Mccray, Endocrinology 07/23/18 [address] [place], [place] 866721 [place] Specialty Export Packer Pulmonary Disease 12/23/18 [address] [place] [address] Brandee Cotter Consulting Endocrinology 11/09/19 (Agricultural Research Engineer) [address] [place], [place] [address] [place] Consulting Pulmonary Disease 11/12/19 [address] [place] [address] Robert Sanchez, [facility] Pharmacist Pharmacy 09/06/21 [address] [place] [address] Brissa Kilpatrick, Transitional Care Pharmacy 01/02/23 [facility] Pharmacist [address] [place] [address] Mimi Crowley, sales analytics manager 01/01/23 01/29/23 Store Sales Manager [employer] 12/17/17 [facility] 07/23/18 [facility] Home Patients 06/20/20 Nut Tightener Relationship Specialty Start Date End Date Panfilo Oreilly, PCP - General Family Medicine 02/12/17 174 [place], [place] [id number] Shreya Mccray, Endocrinology 07/23/18 [address] [place], [place] 96329[address] [place] Specialty Export Packer Pulmonary Disease 12/23/18 [address] [place] [address] Brandee Cotter Consulting Endocrinology 11/09/19 (Agricultural Research Engineer) [address] [place] [address] [place] Dumont Consulting Pulmonary Disease 11/12/19 [address] [place] [address] Robert Sanchez, [facility] Pharmacist Pharmacy 09/06/21 [address] [place] [address] Brissa Kilpatrick, Transitional Care Pharmacy 01/02/23 [facility] Pharmacist [address] [place] [address] Mimi Crowley, sales analytics manager 01/01/23 01/29/23 Store Sales Manager [employer] 12/17/17 [facility] 07/23/18 [facility] Home Patients 06/20/20 Nut Tightener Relationship Specialty Start Date End Date Panfilo Oreilly, PCP - General Family Medicine 02/12/17 [address] [place], [place] [id number] Shreya Mccray, Endocrinology 07/23/18 [address] [place], [place] 114[address] [place] Specialty Export Packer Pulmonary Disease 12/23/18 [address] [place] [address] Brandee Cotter Consulting Endocrinology 11/09/19 (Agricultural Research Engineer) [address] [place] [address] [place] Consulting Pulmonary Disease 11/12/19 [address] [place] [address] Robert Sanchez, [facility] Pharmacist Pharmacy 09/06/21 [address] [place] [address] Brissa Kilpatrick, Transitional Care Pharmacy 01/02/23 [facility] Pharmacist [address] [place] [address] [employer] 12/17/17 [facility] 07/23/18 [facility] Home Patients 06/20/20 Nut Tightener Relationship Specialty Start Date End Date Panfilo Oreilly, PCP - General Family Medicine 02/12/17 [address] [place] [address] Shreya Mccray, Endocrinology 07/23/18 [address] [place] [address] [place] Specialty Export Packer Pulmonary Disease 12/23/18 [address] [place] [address] Brandee Cotter Consulting Endocrinology 11/09/19 (Agricultural Research Engineer) [address] [place], [place] [id number] [place] Consulting Pulmonary Disease 11/12/19 [address] [place] [address] Robert Sanchez [facility] Pharmacist Pharmacy 09/06/21 [address] [place] [address] Brissa Kilpatrick, Transitional Care Pharmacy 01/02/23 [facility] Pharmacist [address] [place], [place] 3255295 [employer] 12/17/17 [facility] 07/23/18 [facility] Home Patients 06/20/20 Nut Tightener Relationship Specialty Start Date End Date Pnafilo Oreilly, PCP - General Family Medicine 02/12/17 [address] [place] [address] Shreya Mccray, Endocrinology 07/23/18 [address] [place] [address] [place] Specialty Export Packer Pulmonary Disease 12/23/18 [address] [place] [address] Brandee Cotter Consulting Endocrinology 11/09/19 (Agricultural Research Engineer) [address] [place] [address] [place] Dumont Consulting Pulmonary Disease 11/12/19 [address] [place] [address] Robert Sanchez [facility] Pharmacist Pharmacy 09/06/21 [address] [place] [address] Brissa Kilpatrick, Transitional Care Pharmacy 01/02/23 [facility] Pharmacist [address] [place] [address] Mimi Crowley, sales analytics manager 01/01/23 01/13/23 Store Sales Manager [employer] 12/17/17 [facility] 07/23/18 [facility] Home Patients 06/20/20 Nut Tightener Relationship Specialty Start Date End Date Panfilo Oreilly, PCP - General Family Medicine 02/12/17 [address] [place], [place] 520[address] Shreya Mccray, Endocrinology 07/23/18 [address] [place] [address] [place] Specialty Export Packer Pulmonary Disease 12/23/18 [address] [place] [address] Brandee Cotter Consulting Endocrinology 11/09/19 (Agricultural Research Engineer) [address] [place] [address] [place] Dumont Consulting Pulmonary Disease 11/12/19 [address] [place] [address] Robert Sanchez, [facility] Pharmacist Pharmacy 09/06/21 [address] [place] [address] Brissa Kilpatrick, Transitional Care Pharmacy 01/02/23 [facility] Pharmacist [address] [place] [address] Raquel Payne, sales analytics manager 01/17/23 Store Sales Manager [employer] 12/17/17 [facility] 07/23/18 [facility] Home Patients 06/20/20 Nut Tightener Relationship Specialty Start Date End Date Panfilo Oreilly, PCP - General Family Medicine 02/12/17 [address] [place], [place] 825111 Shreya Mccray, Endocrinology 07/23/18 1740 [place], [place] 989191 [place] [employer] Specialty Export Packer Pulmonary Disease 12/23/18 [address] [place] [address] Brandee Cotter Consulting Endocrinology 11/09/19 (Agricultural Research Engineer) [address] [place] [address] [place] Dumont Consulting Pulmonary Disease 11/12/19 [address] [place] [address] Robert Sanchez, [facility] Pharmacist Pharmacy 09/06/21 [address] [place] [address] Brissa Kilpatrick, Transitional Care Pharmacy 01/02/23 [facility] Pharmacist [address] [place] [address] Raquel Payne RN Primary Care 01/17/23 Store Sales Manager [employer] 12/17/17 [facility] 07/23/18 [facility] Home Patients 06/20/20 Nut Tightener Relationship Specialty Start Date End Date Panfilo Oreilly, PCP - General Family Medicine 02/12/17 [address] [place], [place] 201161 Shreya Mccray, Endocrinology 07/23/18 1740 [place], [place] 285311 [place] Specialty Export Packer Pulmonary Disease 12/23/18 [address] [place] [address] Brandee Cotter Consulting Endocrinology 11/09/19 (Agricultural Research Engineer) [address] [place], [place] [id number] [place] Consulting Pulmonary Disease 11/12/19 [address] [place] [address] Robert Sanchez, [facility] Pharmacist Pharmacy 09/06/21 [address] [place] [address] Brissa Kilpatrick, Transitional Care Pharmacy 01/02/23 [facility] Pharmacist [address] [place] [address] Raquel Payne, sales analytics manager 01/17/23 Store Sales Manager [employer] 12/17/17 [facility] 07/23/18 [facility] Home Patients 06/20/20 Nut Tightener Relationship Specialty Start Date End Date Panfilo Oreilly, PCP - General Family Medicine 02/12/17 [address] [place], [place] [id number] Shreya Mccray, Endocrinology 07/23/18 [address] [place], [place] [id number] [place] Specialty Export Packer Pulmonary Disease 12/23/18 [address] [place] [address] Brandee Cotter Consulting Endocrinology 11/09/19 (Agricultural Research Engineer) [address] [place] [address] [place] Dumont Consulting Pulmonary Disease 11/12/19 [address] [place] [address] Robert Sanchez, [facility] Pharmacist Pharmacy 09/06/21 [address] [place] [address] Brissa Kilpatrick, Transitional Care Pharmacy 01/02/23 [facility] Pharmacist [address] [place] [address] Raquel Payne, sales analytics manager 01/17/23 Store Sales Manager [employer] 12/17/17 [facility] 07/23/18 [facility] Home Patients 06/20/20 Nut Tightener Relationship Specialty Start Date End Date Panfilo Oreilly, PCP - General Family Medicine 02/12/17 [address] [place], [place] [id number] Shreya Mccray, Endocrinology 07/23/18 [address] [place], [place] 46537[address] [place] Specialty Export Packer Pulmonary Disease 12/23/18 [address] [place] [address] Brandee Cotter Consulting Endocrinology 11/09/19 (Agricultural Research Engineer) [address] [place], [place] [id number] [place] Consulting Pulmonary Disease 11/12/19 [address] [place] [address] Robert Sanchez, [facility] Pharmacist Pharmacy 09/06/21 [address] [place] [address] Brissa Kilpatrick, Transitional Care Pharmacy 01/02/23 [facility] Pharmacist [address] [place], [place] 8878[address] Raquel Payne, sales analytics manager 01/17/23 Store Sales Manager [employer] 12/17/17 [facility] 07/23/18 [facility] Home Patients 06/20/20 Nut Tightener Relationship Specialty Start Date End Date Panfilo Oreilly, PCP - General Family Medicine 02/12/17 [address] [place] [address] Shreya Mccray, Endocrinology 07/23/18 [address] [place] [address] [place] [employer] Specialty Export Packer Pulmonary Disease 12/23/18 [address] [place] [address] Brandee Cotter Consulting Endocrinology 11/09/19 (Agricultural Research Engineer) [address] [place], [place] [id number] [place] Consulting Pulmonary Disease 11/12/19 [address] [place] [address] Robert Sanchez [facility] Pharmacist Pharmacy 09/06/21 [address] [place] [address] Raquel Payne, sales analytics manager 01/17/23 Store Sales Manager [employer] 12/17/17 [facility] 07/23/18 [facility] Home Patients 06/20/20 Nut Tightener Relationship Specialty Start Date End Date Panfilo Oreilly, PCP - General Family Medicine 02/12/17 [address] [place] [address] Shreya Mccray, Endocrinology 07/23/18 [address] [place] [address] [place] [employer] Specialty Export Packer Pulmonary Disease 12/23/18 [address] [place] [address] Brandee Cotter Consulting Endocrinology 11/09/19 (Agricultural Research Engineer) [address] [place], [place] [id number] [place] Consulting Pulmonary Disease 11/12/19 [address] [place] [address] Robert Sanchez [facility] Pharmacist Pharmacy 09/06/21 [address] [place] [address] Raquel Payne RN Primary Care 01/17/23 Store Sales Manager [employer] 12/17/17 [facility] 07/23/18 [facility] Home Patients 06/20/20 Nut Tightener Relationship Specialty Start Date End Date Panfilo Oreilly, PCP - General Family Medicine 02/12/17 MD [address] [place], [place] 166271 Shreya Mccray, Endocrinology 07/23/18 [address] [place], [place] 217311 [place] [employer] Specialty Export Packer Pulmonary Disease 12/23/18 [address] [place] [address] Brandee Cotter Consulting Endocrinology 11/09/19 (Agricultural Research Engineer) [facility] [address] [place], [place] [id number] [place] Consulting Pulmonary Disease 11/12/19 [address] [place] [address] [facility] 09/06/21 [address] [place] [address] Raquel Payne RN Primary Care 01/17/23 Store Sales Manager Dianne Garcia, [facility] General Surgery 02/20/23 CLOTH WASHER BACK TENDER.MANAGER EQUIPMENT 1 [facility] [place] [address] [employer] 12/17/17 [facility] 07/23/18 [facility] Home Patients 06/20/20 Nut Tightener Relationship Specialty Start Date End Date Panfilo Oreilly, PCP - General Family Medicine 02/12/17 [address] [place], [place] 262361 Shreya Mccray, Endocrinology 07/23/18 [address] [place] [address] [place] [employer] Specialty Export Packer Pulmonary Disease 12/23/18 [address] [place] [address] Brandee Cotter Consulting Endocrinology 11/09/19 (Agricultural Research Engineer) [address] [place], [place] [id number] [place] Consulting Pulmonary Disease 11/12/19 [address] [place] [address] Robert Sanchez, [facility] Pharmacist Pharmacy 09/06/21 [address] [place] [address] Dianne Garcia, [facility] General Surgery 02/20/23 CLOTH WASHER BACK TENDER.MANAGER EQUIPMENT 1 [place] [address] Annie Borges, [facility] Transitional Care Pharmacy 02/21/23 03/22/23 [address] [facility] [place] [address] Carlos Clnie, sales analytics manager Internal Medicine 02/21/23 03/23/[address] [place] [place] [address] Biologics Specialist Panfilo Oreilly, Home Care Provider Family Medicine 02/21/23 [address] [place], [place] 316691 [employer] 12/17/17 [facility] 07/23/18 [facility] Home Patients 06/20/20 Nut Tightener Relationship Specialty Start Date End Date Panfilo Oreilly MD PCP - General Family Medicine 02/12/17 [address] [place] [address] Shreya Mccray MD Endocrinology 07/23/18 [address] [place] [address] [place] [employer] Specialty Export Packer Pulmonary Disease 12/23/18 [address] [place] [address] Brandee Cotter (Agricultural Research Engineer) Consulting Endocrinology 11/09/19 [address] [place], [place] [id number] [place] Consulting Pulmonary Disease 11/12/19 [address] [place] [address] Robert Sanchez [facility] Pharmacist Pharmacy 09/06/21 [address] [place] [address] [employer] 12/17/17 [facility] 07/23/18 P[facility]dein[facility] Home Patients 06/20/20 Nut Tightener Relationship Specialty Start Date End Date Panfilo Oreilly, PCP - General Family Medicine 02/12/17 [address] [place] [address] Shreya Mccray, Endocrinology 07/23/18 [address] [place] [address] [place] [employer] Specialty Export Packer Pulmonary Disease 12/23/18 [address] [place], [place] [address] Brandee Cotter Consulting Endocrinology 11/09/19 (Agricultural Research Engineer) [address] [place], [place] [id number] [place] Consulting Pulmonary Disease 11/12/19 [address] [place] [address] Robert Sanchez [facility] Pharmacist Pharmacy 09/06/21 [address] [place], [place] [id number] Dianne Garcia, [facility] General Surgery 02/20/23 CLOTH WASHER BACK TENDER.MANAGER EQUIPMENT 1 [place] [address] Annie Borges [facility] Transitional Care Pharmacy 02/21/23 03/22/23 [address] [facility] [place] [address] Carlos Cline, sales analytics manager Internal Medicine 02/21/23 03/23/23 [address] [facility] [place] [place] [address] Biologics Specialist Panfilo Oreilly, Home Care Provider Family Medicine 02/21/23 [address] [place], [place] [id number] Bharat Gardner, mortar carrierSales Enablement Lead Post Acute Care 02/21/23 [address] [place] [address] [employer] 12/17/17 [facility] 07/23/18 [facility] 06/20/20 Nut Tightener Relationship Specialty Start Date End Date Panfilo Oreilly, PCP - General Family Medicine 02/12/17 [address] [place], [place] [id number] Shreya Mccray, Endocrinology 07/23/18 [address] [place] [address] [place] Dumont Specialty Export Packer Pulmonary Disease 12/23/18 [address] [place] [address] Brandee Cotter Consulting Endocrinology 11/09/19 (Agricultural Research Engineer) [address] [place], [place] [id number] [place] Dumont Consulting Pulmonary Disease 11/12/19 [address] [place] [address] Robert Sanchez, [facility] Pharmacist Pharmacy 09/06/21 [address] [place] [address] Dianne Garcia, [facility] General Surgery 02/20/23 CLOTH WASHER BACK TENDER.MANAGER EQUIPMENT 1 [place] [address] Annie Borges, [facility] Transitional Care Pharmacy 02/21/23 03/22/23 [address] [facility] [place] [address] Carlos Cline, sales analytics manager Internal Medicine 02/21/23 03/23/[address] [place] [address] Biologics Specialist Panfilo Oreilly, Home Care Provider Family Medicine 02/21/23 [address] [place], [place] [id number] Bharat Gardner, mortar carrierSales Enablement Lead Post Acute Care 02/21/23 [address] [place], [place] [id number] [employer] 12/17/17 [facility] 07/23/18 [facility] 06/20/20 Nut Tightener Relationship Specialty Start Date End Date Panfilo Oreilly, PCP - General Family Medicine 02/12/17 [address] [place], [place] [id number] Shreya Mccray, Endocrinology 07/23/18 [address] [place], [place] [id number] [place] Dumont Specialty Export Packer Pulmonary Disease 12/23/18 [address] [place] [address] Brandee Cotter Consulting Endocrinology 11/09/19 (Agricultural Research Engineer) [address] [place], [place] [id number] [place] Dumont Consulting Pulmonary Disease 11/12/19 [address] [place] [address] Robert Sanchez, [facility] Pharmacist Pharmacy 09/06/21 [address] [place] [address] Dianne Garcia, [facility] General Surgery 02/20/23 CLOTH WASHER BACK TENDER.MANAGER EQUIPMENT [address] [place] [address] Annie Borges, [facility] Transitional Care Pharmacy 02/21/23 03/22/23 [address] Pharmacist [place], [place] [id number] Carlos Cline, sales analytics manager Internal Medicine 02/21/23 03/23/[address] [place] [address] Biologics Specialist Panfilo Oreilly, Home Care Provider Family Medicine 02/21/23 [address] [place] [address] Bharat Gardner, mortar carrierSales Enablement Lead Post Acute Care 02/21/23 [address] [place] [address] [employer] 12/17/17 [facility] 07/23/18 [facility] 06/20/20 Nut Tightener Relationship Specialty Start Date End Date Panfilo Oreilly, PCP - General Family Medicine 02/12/17 [address] [place], [place] [id number] Shreya Mccray, Endocrinology 07/23/18 [address] [place] [address] [place] Dumont Specialty Export Packer Pulmonary Disease 12/23/18 [address] [place] [address] Brandee Cotter Consulting Endocrinology 11/09/19 (Agricultural Research Engineer) [address] [place] [address] [place] Dumont Consulting Pulmonary Disease 11/12/19 [address] [place] [address] Robert Sanchez, [facility] Pharmacist Pharmacy 09/06/21 [address] [place] [address] Dianne Garcia, [facility] General Surgery 02/20/23 CLOTH WASHER BACK TENDER.MANAGER EQUIPMENT [address] [place] [address] Annie Borges [facility] Transitional Care Pharmacy 02/21/23 03/22/23 [address] [facility] [place] [address] Carlos Cline, sales analytics manager Internal Medicine 02/21/23 03/23/23 [address] [place] [address] Biologics Specialist Panfilo Oreilly, Home Care Provider Family Medicine 02/21/23 [address] [place], [place] [id number] Bharat Gardner, mortar carrierSales Enablement Lead Post Acute Care 02/21/23 [address] [place], [place] [id number] [employer] 12/17/17 [facility] 07/23/18 [facility] 06/20/20 Nut Tightener Relationship Specialty Start Date End Date Panfilo Oreilly, PCP - General Family Medicine 02/12/17 [address] [place], [place] [id number] Shreya Mccray, Endocrinology 07/23/18 [address] [place] [address] [place] Dumont Specialty Export Packer Pulmonary Disease 12/23/18 [address] [place] [address] Brandee Cotter Consulting Endocrinology 11/09/19 (Agricultural Research Engineer) [address] [place], [place] [id number] [place] Dumont Consulting Pulmonary Disease 11/12/19 [address] [place] [address] Robert Sanchez, [facility] Pharmacist Pharmacy 09/06/21 [address] [place] [address] Dianne Garcia, [facility] General Surgery 02/20/23 CLOTH WASHER BACK TENDER.MANAGER EQUIPMENT [address] [facility] [address] [place], [place] [id number] Annie Borges, [facility] Transitional Care Pharmacy 02/21/23 03/22/23 [address] [place] [facility] [place] [address] Carlos Cline, sales analytics manager Internal Medicine 02/21/23 03/23/23 [address] [place] [address] Biologics Specialist Panfilo Oreilly, Home Care Provider Family Medicine 02/21/23 [address] [place], [place] [id number] Bharat Gardner, mortar carrierSales Enablement Lead Post Acute Care 02/21/23 [address] [place], [place] [id number] [employer] 12/17/17 [facility] 07/23/18 [facility] 06/20/20 Nut Tightener Relationship Specialty Start Date End Date Panfilo Oreilly, PCP - General Family Medicine 02/12/17 [address] [place], [place] [id number] Shreya Mccray, Endocrinology 07/23/18 [address] [place], [place] [id number] [place] Dumont Specialty Export Packer Pulmonary Disease 12/23/18 [address] [place] [address] Brandee Cotter Consulting Endocrinology 11/09/19 (Agricultural Research Engineer) [address] [place] [address] [place] Dumont Consulting Pulmonary Disease 11/12/19 [address] [place] [address] Robert Sanchez, [facility] Pharmacist Pharmacy 09/06/21 [address] [place], [place] [id number] Dianne Garcia, [facility] General Surgery 02/20/23 CLOTH WASHER BACK TENDER.MANAGER EQUIPMENT [address] [place] [address] Annie Borges, [facility] Transitional Care Pharmacy 02/21/23 03/22/23 [address] [facility] [place] [address] Carlos Cline, sales analytics manager Internal Medicine 02/21/23 03/23/23 [address] [place] [address] Biologics Specialist Panfilo Oreilly, Home Care Provider Family Medicine 02/21/23 MD [address] [place], [place] [phone] Bharat Gardner, mortar carrierSales Enablement Lead Post Acute Care 02/21/23 [address] [place] [address] [employer] 12/17/17 [facility] 07/23/18 [facility] 06/20/20 Nut Tightener Relationship Specialty Start Date End Date Panfilo Oreilly, PCP - General Family Medicine 02/12/17 [address] [place] [address] Shreya Mccray, Endocrinology 07/23/18 [address] [place] [address] [place] Dumont Specialty Export Packer Pulmonary Disease 12/23/18 [address] [place] [address] Brandee Cotter Consulting Endocrinology 11/09/19 (Agricultural Research Engineer) [address] [place], [place] [id number] [place] Dumont Consulting Pulmonary Disease 11/12/19 [address] [place] [address] Robert Sanchez, [facility] Pharmacist Pharmacy 09/06/21 [address] [place] [address] Dianne Garcia, [facility] General Surgery 02/20/23 CLOTH WASHER BACK TENDER.MANAGER EQUIPMENT [address] [place] [address] Annie Borges, [facility] Transitional Care Pharmacy 02/21/23 03/22/23 [address] [place] [facility] [place] [address] Carlos Cline, sales analytics manager Internal Medicine 02/21/23 03/23/23 [address] [place] [address] Biologics Specialist Panfilo Oreilly, Home Care Provider Family Medicine 02/21/23 [address] [place], [place] [id number] Bharat Gardner, mortar carrierSales Enablement Lead Post Acute Care 02/21/23 [address] [place], [place] [id number] [employer] 12/17/17 [facility] 07/23/18 [facility] 06/20/20 Nut Tightener Relationship Specialty Start Date End Date Panfilo Oreilly, PCP - General Family Medicine 02/12/17 [address] [place], [place] [address] Shreya Mccray, Endocrinology 07/23/18 [address] [place], [place] [id number] [place] Dumont Specialty Export Packer Pulmonary Disease 12/23/18 [address] [place] [address] Brandee Cotter Consulting Endocrinology 11/09/19 (Agricultural Research Engineer) [address] [place], [place] [id number] [place] Dumont Consulting Pulmonary Disease 11/12/19 [address] [facility] [place] [address] Robert Sanchez, [facility] Pharmacist Pharmacy 09/06/21 [address] [place] [address] Dianne Garcia, [facility] General Surgery 02/20/23 CLOTH WASHER BACK TENDER.MANAGER EQUIPMENT [address] [place] [address] Annie Borges, [facility] Transitional Care Pharmacy 02/21/23 03/22/23 [address] Pharmacist [place], [place] [id number] Toccaceli, Denille, sales analytics manager Internal Medicine 02/21/23 03/23/23 [address] [place] [address] Biologics Specialist Panfilo Oreilly, Home Care Provider Family Medicine 02/21/23 [address] [place] [address] Bharat Gardner, mortar carrierSales Enablement Lead Post Acute Care 02/21/23 [address] [place] [address] [employer] 12/17/17 [facility] 07/23/18 [facility] 06/20/20 INFORMATION SOURCE (unrecognized section and content) DATE CREATED AUTHOR AUTHOR'S ORGANIZ ATION 12/11/2022 [facility] DATE CREATED AUTHOR AUTHOR'S ORGANIZATIO N 02/21/2023 [facility] DATE CREATED AUTHOR AUTHOR'S ORGANIZATIO N 02/28/2023 [facility] FOR RECORDS PERTAINING TO PATIENTS WHO [...] BE BASED ON THE PRIMARY CLINICAL RECORDS. [facility] [employer] provides no warranty or guarantee of the accuracy or completeness of information in this document.
[2023-03-02 14:59] LABS: Lactic Acid 2.6 mmol/L (0.4-1.9)
[2023-03-02 15:09] LABS: BNP,B-Type NATRIURETIC PEPTIDE 68.4 pg/mL (0-100)
[2023-03-02 15:11] LABS: Bedside Glucose 250 mg/dL (74-106)
--- OUTSIDE RECORDS SUMMARY | 2023-03-02 15:54 | XMS RPT_ITS | CCD ---
:1975 [facility] Providers Name Role Phone Panfilo Oreilly MD Primary Care Provider Shreya Mccray Unavailable [place] Dumont Unavailable Brandee Cotter ([facility]) Unavailable [place] Dumont Unavailable [facility], Robert Unavailable PANFILO OREILLY Referring Unavailable PANFILO OREILLY Primary Care Unavailable Panfilo Oreilly MD Primary Care Provider Shreya Mccray MD Unavailable [place] Dumont Unavailable Brandee Cotter ([facility]) Unavailable [place] Dumont Unavailable [facility], Robert Unavailable Shonna [facility], Brissa Unavailable Keo RN, Mimi Unavailable Unavailable Keo VENTURA, Mimi Unavailable Unavailable Raquel Payne RN Unavailable Unavailable Jose WILLIS, Dianne Unavailable [phone] PANFILO OREILLY Primary Care Unavailable PANFILO OREILLY [...] BURSLEY, CHRISTOPHER B Primary Care Unavailable Borges [facility], Annie Unavailable Son VENTURA, Carlos Unavailable Panfilo [...] mouth twice mg tab(s) daily Indications: Ac native pulmonary embol ism without acute c or [...] 20 mg tabl et daily Indications: Ac native diastolic CHF (congestive hea rt failure) ([facility]) , Bilateral lower extremity edema Take 1 tablet by rosalee th twice daily. Ta ke BID with 80 mg lasix to equal 100 mg BID 60 tablet 2 12/12/2022 Acti ve Start: 03-29-2022 furosemide (LASIX) 4 0 mg tablet Indications: Chronic diastolic End: 07-09-2022 heart failure ([facility]) Take 1-2 tablets BID for lower extremity edema 120 tablet 5 0 07/09/2022 Active Start: 12-12-2021 furosemide (LASIX) 4 0 mg tablet Indications: Chronic diastolic End: 01-14-2022 heart failure ([facility]) Take 1-2 tablets BID for lower extremity [...] with long-term curre nt use of insulin ([facility] ) TAKE 1 TABLET BY ROSALEE TH THREE TIMES A D AY 90 tablet 2 2022 Active Start: 12-12-2021 gabapentin (NEURONTI N) 300 mg capsule 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, with long-term current use of insul in ([facility]) Take three tablets in the AM, One [...] into peritoneal cavity, initial encounter] 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 Comment on above: Order Comment: Specimen Type : BLOOD SPECIMENOrdering Facility: [facility] Address: [address] [place], [place] [address] Performed By: #### 87790-8 # ###[facility] LABORATORYCLIA [id number] [place] [address] [place] Calcium [Mass/Vol] 8.9 mg/dL Normal 8.5-10.2 [facility] Comment on above: Order Comment: Specimen Type : BLOOD SPECIMENOrdering Facility: [facility] Address: [address] [place] [address] Performed By: #### 44327-7 # ###[facility]ORATORYCLIA [id number] [place] [address] [place] Chloride [Moles/Vol] 99 mmol/L Normal 97-105 [facility] Comment on above: Order Comment: Specimen Type : BLOOD SPECIMENOrdering Facility: [facility] Address: [address] [address] Performed By: #### 73955-2 # ###[facility] LABORATORYCLIA [id number] [place] [address] [place] CO2 [Moles/Vol] 30 mmol/L Normal 22-30 [facility] Comment on above: Order Comment: Specimen Type : BLOOD SPECIMENOrdering Facility: [facility] Address: [address] [address] Performed By: #### 31584-3 # ###[facility]ATORYCLIA [id number] [place] [address] [place] Creatinine [Mass/Vol] 0.59 mg/dL Normal 0.58-0.96 [facility] Comment on above: Order Comment: Specimen Type : BLOOD SPECIMENOrdering Facility: [facility] Address: [address] [address] Performed By: #### 31265-4 # ###[facility] LABORATORYCLIA [id number] [address] [place] ESTIMATED GLOMERULAR 113 mL/min/1.73m??? Normal >=60 [facility] FILTRATION RATE Flom Comment on above: Order Comment: Specimen Type : BLOOD SPECIMENOrdering Facility: [facility] Address: [address] [place] [address] Result Comment: Estimated Gl omerular Filtration Rate [...] accurately reflect actual GFR. Performed By: #### 98114-1 # ###[facility]PITALCLIA [id number] [place] [address] [place] Glucose [Mass/Vol] 127 mg/dL High 74-99 [facility] Comment on above: Order Comment: Specimen Type : BLOOD SPECIMENOrdering Facility: [facility] Address: [address] [id number] Result Comment: [place] Diabetes Association (ADA) provides guidance for cutoff [...] of Medical Care in Diabetes 2016, [facility] Diabetes Association. Diabetes Care. 2016.39(Suppl 1). Performed By: #### 08740-2 # ###[facility] LABORATORYIA [id number] [place] [address] [place] Potassium [Moles/Vol] 4.3 mmol/L Normal 3.7-5.1 [facility] Comment on above: Order Comment: Specimen Type : BLOOD SPECIMENOrdering Facility: [facility] Address: [address] [place] [address] Performed By: #### 19813-2 # ###[facility] LABORATORYCLIA [id number] [place] [address] [place] Sodium [Moles/Vol] 137 mmol/L Normal 136-144 [facility] Comment on above: Order Comment: Specimen Type : BLOOD SPECIMENOrdering Facility: [facility] Address: [address] [address] Performed By: #### 89511-7 # ###[facility] LABORATORYCLIA [id number] [place] [address] [place] Urea nitrogen [Mass/Vol] 8 mg/dL Normal 7-21 [facility] Comment on above: Order Comment: Specimen Type : BLOOD SPECIMENOrdering Facility: [facility] Address: [address] [address] Performed By: #### 82565-2 # ###[facility] LABORATORYCLIA [id number] [place] [address] [facility] [place] CASE MANAGEM on 02-20-2023 CASE MANAGEM Normal [facility] CBC panel Auto (Bld) on 02-20-2023 Erythrocyte distribution width 16.0 % High 11.5-15.0 [facility] (RBC) [Ratio] Comment on above: Order Comment: Specimen Type : BLOOD SPECIMENOrdering Facility: [facility] Address: [address] [address] Performed By: #### 06645-9 # ###[facility] LABORATORYCLIA [id number] [place] [address] [place] Hematocrit (Bld) [Volume fraction] 31.3 % Low 36.0-4 6.0 [facility] Comment on above: Order Comment: Specimen Type : BLOOD SPECIMENOrdering Facility: [facility] Address: [address] [address] Performed By: #### 90969-9 # ###[facility] LABORATORYCLIA [id number] [address] [place] Hemoglobin (Bld) [Mass/Vol] 8.8 g/dL Low 11.5-15.5 [facility] Comment on above: Order Comment: Specimen Type : BLOOD SPECIMENOrdering Facility: [facility] Address: [address] [address] Performed By: #### 56276-3 # ###[facility] LABORATORYCLIA [id number] [address] MCH (RBC) [Entitic mass] 25.8 pg Low 26.0-34.0 [facility] Comment on above: Order Comment: Specimen Type : BLOOD SPECIMENOrdering Facility: [facility] Address: [address] [address] Performed By: #### 79551-1 # ###[facility] LABORATORYCLIA [id number] [address] MCHC (RBC) [Mass/Vol] 28.1 g/dL Low 30.5-36.0 [facility] Comment on above: Order Comment: Specimen Type : BLOOD SPECIMENOrdering Facility: [facility] Address: [address] [address] Performed By: #### 44560-3 # ###[facility] LABORATORYCLIA [id number] [address] MCV (RBC) [Entitic vol] 91.8 fL Normal 80.0-100.0 [facility] Comment on above: Order Comment: Specimen Type : BLOOD SPECIMENOrdering Facility: [facility] Address: [address] [address] Performed By: #### 93889-9 # ###[facility] LABORATORYCLIA [id number] [address] Nucleated RBC (Bld) [#/Vol] 0.02 10*3/uL High <0.01 [facility] Comment on above: Order Comment: Specimen Type : BLOOD SPECIMENOrdering Facility: [facility] Address: [address] [address] Performed By: #### 56358-8 # ###[facility] LABORATORYCLIA [id number] [place] [address] [place] Platelet mean volume (Bld) 9.8 fL Normal 9.0-12.7 [facility] [Entitic vol] Comment on above: Order Comment: Specimen Type : BLOOD SPECIMENOrdering Facility: [facility] Address: [address] [place] [address] Performed By: #### 47883-3 # ###[facility] LABORATORYCLIA [id number] [facility] [place], [facility] [place] Platelets (Bld) [#/Vol] 264 10*3/uL Normal 150-400 [facility] Comment on above: Order Comment: Specimen Type : BLOOD SPECIMENOrdering Facility: [facility] Address: [address] [address] Performed By: #### 69247-6 # ###[facility] LABORATORYCLIA [id number] [facility] [place], [place] [address] [place] RBC (Bld) [#/Vol] 3.41 10*6/uL Low 3.90-5.20 [facility] Comment on above: Order Comment: Specimen Type : BLOOD SPECIMENOrdering Facility: [facility] Address: [address] [address] Performed By: #### 19795-2 # ###[facility] LABORATORYCLIA [id number] [facility] [place], [facility] [place] WBC (Bld) [#/Vol] 9.61 10*3/uL Normal 3.70-11.00 [facility] Comment on above: Order Comment: Specimen Type : BLOOD SPECIMENOrdering Facility: [facility] Address: [address] [address] Performed By: #### 90197-6 # ###[facility] LABORATORYCLIA [id number] [facility], [facility] [place] CNDS on 02-20-2023 CNDS Normal [facility] CNPN on 02-20-2023 CNPN Normal [facility] CONSULT PROG on 02-20-2023 CONSULT PROG Normal [facility] CONSULT PROG Normal [facility] CONSULT PROG Normal [facility] aPTT PPP on 02-20-2023 aPTT Coag (PPP) [Time] 45.5 s High 23.0-32.4 [facility] Comment on above: Order Comment: Specimen Type : BLOOD SPECIMENOrdering Facility: [facility] Address: [address] [place] [address] Performed By: #### 22438-9 # ###[facility] LABORATORYCLIA [id number] [address] [place] aPTT Coag (PPP) [Time] 39.7 s High 23.0-32.4 [facility] Comment on above: Order Comment: Specimen Type : BLOOD SPECIMENOrdering Facility: [facility] Address: [address] [place] [address] Performed By: #### 28053-0 # ###[facility] LABORATORYCLIA [id number] [facility], [place] [address] [place] ALLIED HEALTH on 02-19-2023 ALLIED HEALTH Normal [facility] Basic metabolic 2000 panel on 3 Anion gap [Moles/Vol] 7 mmol/L Low 9-18 [facility] Comment on above: Order Comment: Specimen Type : BLOOD SPECIMENOrdering Facility: [facility] Address: [address] [place] [address] Performed By: #### 13623-7 # ###[facility] LABORATORYCLIA [id number] [facility], [place] [address] [place] Calcium [Mass/Vol] 8.9 mg/dL Normal 8.5-10.2 [facility] Comment on above: Order Comment: Specimen Type : BLOOD SPECIMENOrdering Facility: [facility] Address: [address] [place] [address] Performed By: #### 00887-0 # ###[facility] LABORATORYCLIA [id number] [facility], [place] [address] [place] Chloride [Moles/Vol] 103 mmol/L Normal 97-105 [facility] Comment on above: Order Comment: Specimen Type : BLOOD SPECIMENOrdering Facility: [facility] Address: [address] [place] [address] Performed By: #### 66990-3 # ###[facility]PITALCLIA [id number] [address] [place] CO2 [Moles/Vol] 30 mmol/L Normal 22-30 [facility] Comment on above: Order Comment: Specimen Type : BLOOD SPECIMENOrdering Facility: [facility] Address: [address] [address] Performed By: #### 38160-8 # ###[facility] HUNTINGBURGIA [id number] [address] [place] Creatinine [Mass/Vol] 0.65 mg/dL Normal 0.58-0.96 [facility] Comment on above: Order Comment: Specimen Type : BLOOD SPECIMENOrdering Facility: [facility] Address: [address] [address] Performed By: #### 00060-6 # ###[facility] HUNTINGBURGIA [id number] [address] ESTIMATED GLOMERULAR 111 mL/min/1.73m??? Normal >=60 [facility] FILTRATION RATE Center Comment on above: Order Comment: Specimen Type : BLOOD SPECIMENOrdering Facility: [facility] Address: [address] [place] [address] Result Comment: Estimated Gl omerular Filtration Rate [...] accurately reflect actual GFR. Performed By: #### 32989-4 # ###[facility] LABORATORYCLIA [id number] [address] [place] Glucose [Mass/Vol] 154 mg/dL High 74-99 [facility] Comment on above: Order Comment: Specimen Type : BLOOD SPECIMENOrdering Facility: [facility] Address: [address] [place] [address] Result Comment: The [place] Diabetes Association (ADA) provides guidance for cutoff [...] Standards of Medical Care in Diabetes 2016, [facility] Diabetes Association. Diabetes Care. 2016.39(Suppl 1). Performed By: #### 84589-1 # ###[facility] LABORATORYCLIA [id number] [place] [address] [place] Potassium [Moles/Vol] 4.5 mmol/L Normal 3.7-5.1 [facility] Comment on above: Order Comment: Specimen Type : BLOOD SPECIMENOrdering Facility: [facility] Address: [address] [place] [address] Performed By: #### 60256-3 # ###[facility] LABORATORYCLIA [id number] [place] [address] [place] Sodium [Moles/Vol] 140 mmol/L Normal 136-144 [facility] Comment on above: Order Comment: Specimen Type : BLOOD SPECIMENOrdering Facility: [facility] Address: [address] [place] [address] Performed By: #### 88857-2 # ###[facility] LABORATORYCLIA [id number] [place] [address] [place] Urea nitrogen [Mass/Vol] 11 mg/dL Normal 7-21 [facility] Comment on above: Order Comment: Specimen Type : BLOOD SPECIMENOrdering Facility: [facility] Address: [address] [address] Performed By: #### 77716-9 # ###[facility] LABORATORYCLIA [id number] [address] [place] CASE MGT INIT ASSES on 02-19-2023 CASE MGT INIT ASSES Normal [facility] CBC panel Auto (Bld) on 02-19-2023 Erythrocyte distribution width 16.4 % High 11.5-15.0 [facility] (RBC) [Ratio] Comment on above: Order Comment: Specimen Type : BLOOD SPECIMENOrdering Facility: [facility] Address: [address] [place] [address] Performed By: #### 37292-9 # ###[facility] LABORATORYCLIA [id number] [address] [place] Hematocrit (Bld) [Volume fraction] 32.1 % Low 36.0-4 6.0 [facility] Comment on above: Order Comment: Specimen Type : BLOOD SPECIMENOrdering Facility: [facility] Address: [address] [place] [address] Performed By: #### 10384-0 # ###[facility] LABORATORYCLIA [id number] [address] [place] Hemoglobin (Bld) [Mass/Vol] 9.3 g/dL Low 11.5-15.5 [facility] Comment on above: Order Comment: Specimen Type : BLOOD SPECIMENOrdering Facility: [facility] Address: [address] [address] Performed By: #### 78080-9 # ###[facility]ORATORYCLIA [id number] [address] [place] MCH (RBC) [Entitic mass] 26.6 pg Normal 26.0-34.0 [facility] Comment on above: Order Comment: Specimen Type : BLOOD SPECIMENOrdering Facility: [facility] Address: [address] [place] [address] Performed By: #### 24005-3 # ###[facility] LABORATORYCLIA [id number] [facility], [address] STATES [facility] MCHC (RBC) [Mass/Vol] 29.0 g/dL Low 30.5-36.0 [facility] Comment on above: Order Comment: Specimen Type : BLOOD SPECIMENOrdering Facility: [facility] Address: [address] [place] [address] Performed By: #### 88914-3 # ###[facility] LABORATORYCLIA [id number] [facility], [address] [place] MCV (RBC) [Entitic vol] 92.0 fL Normal 80.0-100.0 [facility] Comment on above: Order Comment: Specimen Type : BLOOD SPECIMENOrdering Facility: [facility] Address: [address] [place] [address] Performed By: #### 49798-2 # ###[facility] LABORATORYCLIA [id number] [address] Nucleated RBC (Bld) [#/Vol] 10*3/uL Normal <0.01 [facility] Comment on above: Order Comment: Specimen Type : BLOOD SPECIMENOrdering Facility: [facility] Address: [address] [place] [address] Performed By: #### 86867-9 # ###[facility] LABORATORYCLIA [id number] [address] STATES [facility] Platelet mean volume (Bld) 9.8 fL Normal 9.0-12.7 [facility] [Entitic vol] Comment on above: Order Comment: Specimen Type : BLOOD SPECIMENOrdering Facility: [facility] Address: [address] [place] [address] Performed By: #### 21106-1 # ###[facility]ORATORYCLIA [id number] [facility], [address] [place] Platelets (Bld) [#/Vol] 282 10*3/uL Normal 150-400 [facility] Comment on above: Order Comment: Specimen Type : BLOOD SPECIMENOrdering Facility: [facility] Address: [address] [address] Performed By: #### 93422-9 # ###[facility] LABORATORYCLIA [id number] [place] [address] [place] RBC (Bld) [#/Vol] 3.49 10*6/uL Low 3.90-5.20 [facility] Comment on above: Order Comment: Specimen Type : BLOOD SPECIMENOrdering Facility: [facility] Address: [address] [address] Performed By: #### 04653-5 # ###[facility] LABORATORYCLIA [id number] [place] [address] [place] WBC (Bld) [#/Vol] 11.20 10*3/uL High 3.70-11.00 [facility] Comment on above: Order Comment: Specimen Type : BLOOD SPECIMENOrdering Facility: [facility] Address: [address] [address] Performed By: #### 71639-1 # ###[facility] LABORATORYCLIA [id number] [address] [place] Erythrocyte distribution width 16.4 % High 11.5-15.0 [facility] (RBC) [Ratio] Comment on above: Order Comment: Specimen Type : BLOOD SPECIMENOrdering Facility: [facility] Address: [address] [address] Performed By: #### 97125-0 # ###[facility] LABORATORYCLIA [id number] [address] Hematocrit (Bld) [Volume fraction] 33.4 % Low 36.0-4 6.0 [facility] Comment on above: Order Comment: Specimen Type : BLOOD SPECIMENOrdering Facility: [facility] Address: [address] [address] Performed By: #### 72093-2 # ###[facility] LABORATORYCLIA [id number] [facility], [address] [place] Hemoglobin (Bld) [Mass/Vol] 9.3 g/dL Low 11.5-15.5 [facility] Comment on above: Order Comment: Specimen Type : BLOOD SPECIMENOrdering Facility: [facility] Address: [address] [place] [address] Performed By: #### 37741-7 # ###[facility] LABORATORYCLIA [id number] [address] OF [facility] MCH (RBC) [Entitic mass] 25.9 pg Low 26.0-34.0 [facility] Comment on above: Order Comment: Specimen Type : BLOOD SPECIMENOrdering Facility: [facility] Address: [address] [place] [address] Performed By: #### 88660-5 # ###[facility] LABORATORYCLIA [id number] [address] OF [facility] MCHC (RBC) [Mass/Vol] 27.8 g/dL Low 30.5-36.0 [facility] Comment on above: Order Comment: Specimen Type : BLOOD SPECIMENOrdering Facility: [facility] Address: [address] [place] [address] Performed By: #### 43856-4 # ###[facility] LABORATORYCLIA [id number] [address] [place] MCV (RBC) [Entitic vol] 93.0 fL Normal 80.0-100.0 [facility] Comment on above: Order Comment: Specimen Type : BLOOD SPECIMENOrdering Facility: [facility] Address: [address] [place] [address] Performed By: #### 76182-0 # ###[facility] LABORATORYCLIA [id number] [address] OF [facility] Nucleated RBC (Bld) [#/Vol] 10*3/uL Normal <0.01 [facility] Comment on above: Order Comment: Specimen Type : BLOOD SPECIMENOrdering Facility: [facility] Address: [address] [place] [address] Performed By: #### 56443-9 # ###[facility] [facility]ORATORYCLIA [id number] [place] [address] [facility] [place] Platelet mean volume (Bld) 9.8 fL Normal 9.0-12.7 [facility] [Entitic vol] Comment on above: Order Comment: Specimen Type : BLOOD SPECIMENOrdering Facility: [facility] Address: [address] Performed By: #### 71256-9 # ###[facility] [facility]ORATORYCLIA [id number] [place] [address] [place] Platelets (Bld) [#/Vol] 292 10*3/uL Normal 150-400 [facility] Comment on above: Order Comment: Specimen Type : BLOOD SPECIMENOrdering Facility: [facility] Address: [address] Performed By: #### 33969-9 # ###[facility]ATORYCLIA [id number] [place] [address] [place] RBC (Bld) [#/Vol] 3.59 10*6/uL Low 3.90-5.20 [facility] Comment on above: Order Comment: Specimen Type : BLOOD SPECIMENOrdering Facility: [facility] Address: [address] Performed By: #### 47627-9 # ###[facility]ATORYCLIA [id number] [facility] [place] [place] [address] [place] [address] [place] WBC (Bld) [#/Vol] 11.49 10*3/uL High 3.70-11.00 [facility] Comment on above: Order Comment: Specimen Type : BLOOD SPECIMENOrdering Facility: [facility] Address: [address] [address] Performed By: #### 07316-3 # ###[facility]ORATORYCLIA [id number] [place] [address] [place] CNPN on 02-19-2023 CNPN Normal [facility] CONSULT on 02-19-2023 CONSULT Normal [facility] CONSULT PROG on 02-19-2023 CONSULT PROG Normal [facility] Comprehensive metabolic 2000 panel on 0 02-19-2023 Albumin [Mass/Vol] 3.4 g/dL Low 3.9 - 4.9 g/dL [facility] ALP [Catalytic 64 U/L 34 - 123 U/L [facility] activity/Vol] ALT [Catalytic 12 U/L 7 - 38 U/L [facility] re[facility] activity/Vol] Anion gap [Moles/Vol] 7 mmol/L Low 9 - 18 mmol/L [facility] AST [Catalytic 12 U/L Low 13 - 35 U/L [facility] rebecca activity/Vol] Bilirubin [Mass/Vol] 0.2 mg/dL 0.2 - 1.3 mg/dL [facility] Calcium [Mass/Vol] 8.8 mg/dL 8.5 - 10.2 mg/dL [facility] Chloride [Moles/Vol] 100 mmol/L 97 - 105 mmol/L [facility] CO2 [Moles/Vol] 29 mmol/L 22 - 30 mmol/L [facility] Creatinine [Mass/Vol] 0.76 mg/dL 0.58 - 0.96 mg/dL C [facility] Estimated Glomerular 99 mL/min/1.73m >=60 mL/min/1.73m [facility] Filtration Rate Glucose [Mass/Vol] 153 mg/dL High 74 - 99 mg/dL [facility] Potassium [Moles/Vol] 5.0 mmol/L 3.7 - 5.1 mmol/L Cl [facility] Protein [Mass/Vol] 6.7 g/dL 6.3 - 8.0 g/dL [facility] Sodium [Moles/Vol] 136 mmol/L 136 - 144 mmol/L [facility] Urea nitrogen [Mass/Vol] 16 mg/dL 7 - 21 mg/dL [facility] ED NOTE on 02-19-2023 ED NOTE HNO ID: [id number] Normal [facility] Author: Anita Jason RN Service: ? Author Type: Registered Nurse Type: ED Notes Filed: 02/19/2023 12:25 AM Note Text: Bed: 12-ED Expected date: Expected time: Means of arrival: Comments: Muddy transfer ED PROV NOTE on 02-19-2023 ED PROV NOTE Normal [facility] ED PROV NOTE Normal [facility] HISTORY PHYSICAL on 02-19-2023 HISTORY PHYSICAL Normal [facility] LIPID PANEL, NONFASTING on 02-19-2023 Cholesterol [Mass/Vol] 148 mg/dL <200 mg/dL [facility] HDL Cholesterol, Nonfasting 37 mg/dL Low >39 mg/dL [facility] LDL Cholesterol, Nonfasting 87 mg/dL <100 mg/dL [facility] LDL/HDL Ratio, Nonfasting 2.35 mg/dL <2.54 mg/dL [facility] Non HDL Cholesterol, Nonfasting 111 mg/dL <130 mg/d L [facility] Total Chol/HDL Ratio, Nonfasting 4.00 mg/dL <5.10 mg /dL [facility] Triglycerides, Nonfasting 122 mg/dL <150 mg/dL [facility] VLDL Cholesterol, Nonfasting 24 mg/dL <30 mg/dL [facility] NURSING PROG on 02-19-2023 NURSING PROG Normal [facility] PT panel Coag (PPP) on 02-19-2023 INR Coag (PPP) [Relative time] 1.1 {INR} Normal 0.9-1.3 [facility] Comment on above: Order Comment: Specimen Type : BLOOD SPECIMENOrdering Facility: [facility] Address: [address] [place] [id number] Result Comment: Vitamin K An tagonist (VKA) [...] al. Chest 2012, 141:7S-47SCristel RA, et al. [facility] 2017, 70: 25 2-289 Performed By: #### 03317-9, 06369-0 ####[facility]PITALCLIA [id number] [address] STATES OF [facility] PT Coag (PPP) [Time] 11.4 s Normal 9.7-13.0 [facility] Comment on above: Order Comment: Specimen Type : BLOOD SPECIMENOrdering Facility: [facility] Address: [address] [place] [address] Performed By: #### 38901-1, 75855-1 ####[facility] HOSPITALCLIA [id number] [address] URINALYSIS, REFLEX MICROSCOPIC on 02-19 Bacteria LM.HPF (Urine sed) Few Abnormal None Seen [facility] [#/Area] Comment on above: Order Comment: Specimen Type : URINE SPECIMENOrdering Facility: [facility] Address: [address] [place] [address] Performed By: #### [id number] # ###[facility] HOSPITALCLIA [id number] [address] Bilirubin Ql (U) Negative Normal Negative [facility] Comment on above: Order Comment: Specimen Type : URINE SPECIMENOrdering Facility: [facility] Address: [address] [place] [address] Performed By: #### [id number] # ###[facility]PITALCLIA [id number] [address] Clarity (Unsp spec) Clear Normal Clear [facility] Comment on above: Order Comment: Specimen Type : URINE SPECIMENOrdering Facility: [facility] Address: [address] [address] Performed By: #### [id number] # ###[facility]ORATORYCLIA [id number] [place] [address] [place] Color (U) Light Yellow Normal yellow [facility] Comment on above: Order Comment: Specimen Type : URINE SPECIMENOrdering Facility: [facility] Address: [address] [place] [address] Performed By: #### [id number] # ###[facility]ORATORYCLIA [id number] [facility] [place], [place] [id number] [place] [address] [place] Glucose Test strip (U) 4+ Abnormal Trace, Negative [facility] [Mass/Vol] Center Comment on above: Order Comment: Specimen Type : URINE SPECIMENOrdering Facility: [facility] Address: [address] [place] [address] Performed By: #### [id number] # ###[facility]ORATORYCLIA [id number] [facility] [place], [address] [place] [address] [place] Hemoglobin Ql (U) 2+ Abnormal Negative, Trace [facility] Comment on above: Order Comment: Specimen Type : URINE SPECIMENOrdering Facility: [facility] Address: [address] [place] [address] Performed By: #### [id number] # ###[facility]ORATORYCLIA [id number] [facility] [place] [id number] [place] [address] [place] Ketones Ql (U) Negative Normal Negative, Trace [facility] Comment on above: Order Comment: Specimen Type : URINE SPECIMENOrdering Facility: [facility] Address: [address] [place] [address] Performed By: #### [id number] # ###[facility]ORATORYCLIA [id number] [facility] [address] [place] Leukocyte esterase Test 500 Roebrt/uL Abnormal Negative, 25 Robert/ uL [facility] Ql (U) Center Comment on above: Order Comment: Specimen Type : URINE SPECIMENOrdering Facility: [facility] Address: [address] [address] Performed By: #### [id number] # ###[facility] LABORATORYCLIA [id number] [address] [id number] [place] Nitrite Ql (U) Negative Normal Negative [facility] Comment on above: Order Comment: Specimen Type : URINE SPECIMENOrdering Facility: [facility] Address: [address] [address] Performed By: #### [id number] # ###[facility] LABORATORYCLIA [id number] [address] [id number] [place] pH (U) 5.5 [pH] Normal 5.0-8.0 [facility] Comment on above: Order Comment: Specimen Type : URINE SPECIMENOrdering Facility: [facility] Address: [address] [place] [address] Performed By: #### [id number] # ###[facility]OSPITALCLIA [id number] [address] Protein (U) [Mass/Vol] 1+ Abnormal Trace, Negative [facility] Comment on above: Order Comment: Specimen Type : URINE SPECIMENOrdering Facility: [facility] Address: [address] [place] [address] Performed By: #### [id number] # ###[facility] LABORATORYCLIA [id number] [address] [place] [id number] [facility] [place] RBC LM.HPF (Urine sed) [#/Area] /[HPF] Abnormal 0-3 /HPF [facility] Comment on above: Order Comment: Specimen Type : URINE SPECIMENOrdering Facility: [facility] Address: [address] [place] [address] Performed By: #### [id number] # ###[facility] LABORATORYCLIA [id number] [address] Specific gravity (U) [Rel 1.027 Normal 1.005-1.030 [facility] density] Comment on above: Order Comment: Specimen Type : URINE SPECIMENOrdering Facility: [facility] Address: [address] [address] Performed By: #### [id number] # ###[facility] LABORATORYCLIA [id number] [address] Urobilinogen Ql (U) Normal Normal Negative [facility] Comment on above: Order Comment: Specimen Type : URINE SPECIMENOrdering Facility: [facility] Address: [address] [place] [address] Performed By: #### [id number] # ###[facility] LABORATORYCLIA [id number] [facility], [address] WBC LM.HPF (Urine sed) [#/Area] /[HPF] Abnormal 0-5 /HPF [facility] Comment on above: Order Comment: Specimen Type : URINE SPECIMENOrdering Facility: [facility] Address: [address] [place] [address] Performed By: #### [id number] # ###[facility] LABORATORYCLIA [id number] [address] Yeast.budding LM.HPF (Urine sed) Few Abnormal None See n [facility] [#/Area] Comment on above: Order Comment: Specimen Type : URINE SPECIMENOrdering Facility: [facility] Address: [address] [place] [address] Performed By: #### [id number] # ###[facility] LABORATORYCLIA [id number] [address] OF [place] aPTT PPP on 02-19-2023 aPTT Coag (PPP) [Time] 37.2 s High 28.5-34.0 [facility] Comment on above: Order Comment: Specimen Type : BLOOD SPECIMENOrdering Facility: [facility] Address: [address] [place] [address] Performed By: #### 46354-7 # ###[facility] LABORATORYCLIA [id number] [facility], [address] aPTT Coag (PPP) [Time] 33.7 s High 23.0-32.4 [facility] Comment on above: Order Comment: Specimen Type : BLOOD SPECIMENOrdering Facility: [facility] Address: [address] [address] Performed By: #### 63421-6 # ###[facility] LABORATORYCLIA [id number] [address] [place] aPTT Coag (PPP) [Time] 28.4 s Normal 23.0-32.4 [facility] Comment on above: Order Comment: Specimen Type : BLOOD SPECIMENOrdering Facility: [facility] Address: [address] [address] Performed By: #### 94711-2, 47167-8 ####[facility] LABORATORYCLIA [id number] [address] [place] Bacteria Wnd Cult on 02-18-2023 Bacteria identified Cx Nom (Wound) Abnormal [facility] Comment on above: Performed By: #### 6462-6 ## ##[facility] LABCLIA [id number] [address] [place] CBC W Auto Differential panel (Bld) on 02-18-2023 Basophils (Bld) [#/Vol] 0.10 10*3/uL <0.11 k/uL [facility] Basophils/100 WBC (Bld) 0.8 % [facility] Differential cell count Auto [facility] method Nom (Bld) Eosinophils (Bld) [#/Vol] 0.18 10*3/uL <0.46 k/uL [facility] Eosinophils/100 WBC (Bld) 1.5 % [facility] Erythrocyte distribution 16.3 % High 11.5 - 15.0 % [facility] width (RBC) [Ratio] Hematocrit (Bld) [Volume 32.7 % Low 36.0 - 46.0 % [facility] fraction] Hemoglobin (Bld) 9.4 g/dL Low 11.5 - 15.5 g/dL [facility] [Mass/Vol] Immature granulocytes 0.11 10*3/uL High <0.10 k/uL [facility] (Bld) [#/Vol] Immature granulocytes/100 0.9 % [facility] WBC (Bld) Lymphocytes (Bld) [#/Vol] 2.20 10*3/uL 1.00 - 4.00 k/u L [facility] Lymphocytes/100 WBC (Bld) 18.5 % [facility] MCH (RBC) [Entitic mass] 26.5 pg 26.0 - 34.0 pg [facility] MCHC (RBC) [Mass/Vol] 28.7 g/dL Low 30.5 - 36.0 g/dL [facility] MCV (RBC) [Entitic vol] 92.1 fL 80.0 - 100.0 fL [facility] Monocytes (Bld) [#/Vol] 0.52 10*3/uL <0.87 k/uL [facility] Monocytes/100 WBC (Bld) 4.4 % [facility] Neutrophils (Bld) [#/Vol] 8.78 10*3/uL High 1.45 - 7.50 k/u L [facility] Neutrophils/100 WBC (Bld) 73.9 % [facility] Nucleated RBC (Bld) <0.01 k/uL [facility] [#/Vol] Nucleated RBC/100 WBC 0.0 /100 WBC [facility] [employer] (Bld) [Ratio] Platelet mean volume 10.7 fL 9.0 - 12.7 fL [facility] (Bld) [Entitic vol] Platelets (Bld) [#/Vol] 302 10*3/uL 150 - 400 k/uL [facility] RBC (Bld) [#/Vol] 3.55 10*6/uL Low 3.90 - 5.20 m/uL [facility] WBC (Bld) [#/Vol] 11.89 10*3/uL High 3.70 - 11.00 k/uL [facility] Basophils (Bld) [#/Vol] 0.10 10*3/uL Normal <0.11 [facility] Comment on above: Order Comment: Specimen Type : BLOOD SPECIMENOrdering Facility: [facility] Address: [address] [place] [address] [place] [address] Performed By: #### 94299-8 # ###[facility] LABCLIA [id number] [place] [address] [place] Basophils/100 WBC (Bld) 0.8 % Normal [facility] Comment on above: Order Comment: Specimen Type : BLOOD SPECIMENOrdering Facility: [facility] Address: [address] [place] [address] Performed By: #### 45869-3 # ###[facility] LABCLIA [id number] [place] [address] [place] Differential cell count method Nom (Bld) Auto Normal [facility] Comment on above: Order Comment: Specimen Type : BLOOD SPECIMENOrdering Facility: [facility] Address: [address] [place] [address] Performed By: #### 58863-2 # ###[facility] LABCLIA [id number] [place] [address] [place] Eosinophils (Bld) [#/Vol] 0.18 10*3/uL Normal <0.46 [facility] Comment on above: Order Comment: Specimen Type : BLOOD SPECIMENOrdering Facility: [facility] Address: [address] [place] [address] Performed By: #### 37089-8 # ###[facility] LABIA [id number] [place] [address] [place] Eosinophils/100 WBC (Bld) 1.5 % Normal [facility] Comment on above: Order Comment: Specimen Type : BLOOD SPECIMENOrdering Facility: [facility] Address: [address] [place] [address] Performed By: #### 27663-6 # ###[facility] LABIA [id number] [place] [address] [place] Erythrocyte distribution width (RBC) 16.3 % High 11.5 -15.0 [facility] [Ratio] Comment on above: Order Comment: Specimen Type : BLOOD SPECIMENOrdering Facility: [facility] Address: [address] Performed By: #### 38191-7 # ###[facility] LABIA [id number] [place] [address] [place] Hematocrit (Bld) [Volume fraction] 32.7 % Low 36.0-4 6.0 [facility] Comment on above: Order Comment: Specimen Type : BLOOD SPECIMENOrdering Facility: [facility] Address: [address] Performed By: #### 45953-0 # ###[facility] LABIA [id number] [place] [address] [place] Hemoglobin (Bld) [Mass/Vol] 9.4 g/dL Low 11.5-15.5 [facility] Comment on above: Order Comment: Specimen Type : BLOOD SPECIMENOrdering Facility: [facility] Address: [address] [place], [place] [address] Performed By: #### 50960-4 # ###[facility] LABIA [id number] [place] [address] [place] Immature granulocytes (Bld) 0.11 10*3/uL High <0.10 [facility] [#/Vol] Comment on above: Order Comment: Specimen Type : BLOOD SPECIMENOrdering Facility: [facility] Address: [address] [place], [place] [address] Performed By: #### 26309-2 # ###[facility] LABCLIA [id number] [place] [address] [place] Immature granulocytes/100 WBC (Bld) 0.9 % Normal [facility] Comment on above: Order Comment: Specimen Type : BLOOD SPECIMENOrdering Facility: [facility] Address: [address] [place], [place] [address] Performed By: #### 55495-2 # ###[facility] LABCLIA [id number] [place] [address] [place] Lymphocytes (Bld) [#/Vol] 2.20 10*3/uL Normal 1.00-4.00 [facility] Comment on above: Order Comment: Specimen Type : BLOOD SPECIMENOrdering Facility: [facility] Address: [address] [place] [address] Performed By: #### 31165-1 # ###[facility] LABCLIA [id number] [place] [address] [place] Lymphocytes/100 WBC (Bld) 18.5 % Normal [facility] Comment on above: Order Comment: Specimen Type : BLOOD SPECIMENOrdering Facility: [facility] Address: [address] [place] [address] Performed By: #### 15243-8 # ###[facility] LABCLIA [id number] [place] [address] [place] MCH (RBC) [Entitic mass] 26.5 pg Normal 26.0-34.0 [facility] Comment on above: Order Comment: Specimen Type : BLOOD SPECIMENOrdering Facility: [facility] Address: [address] [place], [place] [address] Performed By: #### 26899-6 # ###[facility] LABCLIA [id number] [place] [address] [place] MCHC (RBC) [Mass/Vol] 28.7 g/dL Low 30.5-36.0 [facility] Comment on above: Order Comment: Specimen Type : BLOOD SPECIMENOrdering Facility: [facility] Address: [address] [place], [place] [address] Performed By: #### 72019-4 # ###[facility] LABCLIA [id number] [place] [address] [place] MCV (RBC) [Entitic vol] 92.1 fL Normal 80.0-100.0 [facility] Comment on above: Order Comment: Specimen Type : BLOOD SPECIMENOrdering Facility: [facility] Address: [address] Performed By: #### 24822-9 # ###[facility] LABCLIA [id number] [place] [address] [place] Monocytes (Bld) [#/Vol] 0.52 10*3/uL Normal <0.87 [facility] Comment on above: Order Comment: Specimen Type : BLOOD SPECIMENOrdering Facility: [facility] Address: [address] Performed By: #### 40050-4 # ###[facility] LABCLIA [id number] [place] [address] [place] Monocytes/100 WBC (Bld) 4.4 % Normal [facility] Comment on above: Order Comment: Specimen Type : BLOOD SPECIMENOrdering Facility: [facility] Address: [address] Performed By: #### 25126-3 # ###[facility] LABCLIA [id number] [place] [address] [place] Neutrophils (Bld) [#/Vol] 8.78 10*3/uL High 1.45-7.50 [facility] Comment on above: Order Comment: Specimen Type : BLOOD SPECIMENOrdering Facility: [facility] Address: [address] [place] [address] Performed By: #### 67682-7 # ###[facility] LABCLIA [id number] [place] [address] [place] Neutrophils/100 WBC (Bld) 73.9 % Normal [facility] Comment on above: Order Comment: Specimen Type : BLOOD SPECIMENOrdering Facility: [facility] Address: [address] Performed By: #### 61421-3 # ###[facility] LABCLIA [id number] [place] [address] [place] Nucleated RBC (Bld) [#/Vol] 10*3/uL Normal <0.01 [facility] Comment on above: Order Comment: Specimen Type : BLOOD SPECIMENOrdering Facility: [facility] Address: [address] [place] [address] Performed By: #### 88470-7 # ###[facility] LABCLIA [id number] [place] [address] [place] Nucleated RBC/100 WBC (Bld) [Ratio] 0.0 /100 WBC Normal [facility] Comment on above: Order Comment: Specimen Type : BLOOD SPECIMENOrdering Facility: [facility] Address: [address] [place] [address] Performed By: #### 05438-2 # ###[facility] LABCLIA [id number] [place] [address] [place] Platelet mean volume (Bld) 10.7 fL Normal 9.0-12.7 [facility] [Entitic vol] Comment on above: Order Comment: Specimen Type : BLOOD SPECIMENOrdering Facility: [facility] Address: [address] [place], [place] [address] Performed By: #### 31306-8 # ###[facility] LABCLIA [id number] [place] [address] [place] Platelets (Bld) [#/Vol] 302 10*3/uL Normal 150-400 [facility] Comment on above: Order Comment: Specimen Type : BLOOD SPECIMENOrdering Facility: [facility] Address: [address] [place], [place] [address] Performed By: #### 29584-1 # ###[facility] LABCLIA [id number] [place] [address] [place] RBC (Bld) [#/Vol] 3.55 10*6/uL Low 3.90-5.20 [facility] Comment on above: Order Comment: Specimen Type : BLOOD SPECIMENOrdering Facility: [facility] Address: [address] Performed By: #### 15275-8 # ###[facility] LABCLIA [id number] [place] [address] [place] WBC (Bld) [#/Vol] 11.89 10*3/uL High 3.70-11.00 [facility] Comment on above: Order Comment: Specimen Type : BLOOD SPECIMENOrdering Facility: [facility] Address: [address] Performed By: #### 04652-7 # ###[facility] LABIA [id number] [place] [address] [place] CNOV on 02-18-2023 CNOV Normal [facility] metabolic 2000 panel on 02-18-2023 Albumin [Mass/Vol] 3.4 g/dL Low 3.9-4.9 [facility] Comment on above: Order Comment: Specimen Type : BLOOD SPECIMENOrdering Facility: [facility] Address: [address] Performed By: #### LIPNF, 323-8 ####[facility] LABCLIA [id number] [place] [address] [place] ALP [Catalytic activity/Vol] 64 U/L Normal 34-123 [facility] Comment on above: Order Comment: Specimen Type : BLOOD SPECIMENOrdering Facility: [facility] Address: [address] Performed By: #### LIPNF, 323-8 ####[facility] LABCLIA [id number] [place] [address] [place] ALT [Catalytic activity/Vol] 12 U/L Normal 7-38 [facility] Comment on above: Order Comment: Specimen Type : BLOOD SPECIMENOrdering Facility: [facility] Address: [address] [place], [place] [id number] Performed By: #### LIPANN-MARIE, 8 ####[facility] LABCLIA [id number] [place] [address] [place] Anion gap [Moles/Vol] 7 mmol/L Low 9-18 [facility] Comment on above: Order Comment: Specimen Type : BLOOD SPECIMENOrdering Facility: [facility] Address: [address] [place], [place] Performed By: #### LIPANN-MARIE, 8 ####[facility] LABCLIA [id number] [place] [address] [place] [place] AST [Catalytic activity/Vol] 12 U/L Low 13-35 [facility] Comment on above: Order Comment: Specimen Type : BLOOD SPECIMENOrdering Facility: [facility] Address: [address] [place], [place] Performed By: #### LIAM, 8 ####[facility] LABCLIA [id number] [place] [address] [place] Bilirubin [Mass/Vol] 0.2 mg/dL Normal 0.2-1.3 [facility] Comment on above: Order Comment: Specimen Type : BLOOD SPECIMENOrdering Facility: [facility] Address: [address] [place], [place] Performed By: #### LIPANN-MARIE, 8 ####[facility] LABCLIA [id number] [place] [address] [place] Calcium [Mass/Vol] 8.8 mg/dL Normal 8.5-10.2 [facility] Comment on above: Order Comment: Specimen Type : BLOOD SPECIMENOrdering Facility: [facility] Address: [address] [place], [place] Performed By: #### LIPANN-MARIE, 8 ####[facility] LABCLIA [id number] [place] [address] [place] Chloride [Moles/Vol] 100 mmol/L Normal 97-105 [facility] Comment on above: Order Comment: Specimen Type : BLOOD SPECIMENOrdering Facility: [facility] Address: [address] [place] [address] Performed By: #### LIAM, 8 ####[facility] LABCLIA [id number] [place] [address] [place] CO2 [Moles/Vol] 29 mmol/L Normal 22-30 [facility] Comment on above: Order Comment: Specimen Type : BLOOD SPECIMENOrdering Facility: [facility] Address: [address] Performed By: #### LIAM, ####[facility] LABCLIA [id number] [address] [place] Creatinine [Mass/Vol] 0.76 mg/dL Normal 0.58-0.96 [facility] Comment on above: Order Comment: Specimen Type : BLOOD SPECIMENOrdering Facility: [facility] Address: [address] Performed By: #### LIAM, ####[facility] LABCLIA [id number] [address] [place] ESTIMATED GLOMERULAR 99 mL/min/1.73m??? Normal >=60 [facility]ATE Comment on above: Order Comment: Specimen Type : BLOOD SPECIMENOrdering Facility: [facility] Address: [address] Result Comment: Estimated Gl omerular Filtration [...] actual GFR. Performed By: #### LIAM, 8 ####[facility] LABCLIA [id number] [place] [address] [place] Glucose [Mass/Vol] 153 mg/dL High 74-99 [facility] Comment on above: Order Comment: Specimen Type : BLOOD SPECIMENOrdering Facility: [facility] Address: [address] [place] [address] Result Comment: The [place] Diabetes Association (ADA) provides guidance for cutoff [...] of Medical Care in Diabetes 2016, [facility] Diabetes Association. Diabetes Care. 2016.39(Suppl 1). Performed By: #### LIAM, 8 ####[facility] LABIA [id number] [place] [address] [place] Potassium [Moles/Vol] 5.0 mmol/L Normal 3.7-5.1 [facility] Comment on above: Order Comment: Specimen Type : BLOOD SPECIMENOrdering Facility: [facility] Address: [address] Performed By: #### LIAM, 8 ####[facility] [id number] [place] [address] [place] Protein [Mass/Vol] 6.7 g/dL Normal 6.3-8.0 [facility] Comment on above: Order Comment: Specimen Type : BLOOD SPECIMENOrdering Facility: [facility] Address: [address] Performed By: #### LIPNF, 323-8 ####[facility] LABCLIA [id number] [place] [address] [place] Sodium [Moles/Vol] 136 mmol/L Normal 136-144 [facility] Comment on above: Order Comment: Specimen Type : BLOOD SPECIMENOrdering Facility: [facility] Address: [address] Performed By: #### LIPANN-MARIE, 8 ####[facility] LABCLIA [id number] [place] [address] [place] Urea nitrogen [Mass/Vol] 16 mg/dL Normal 7-21 [facility] Comment on above: Order Comment: Specimen Type : BLOOD SPECIMENOrdering Facility: [facility] Address: [address] [place], [place] [address] Performed By: #### LIPANN-MARIE, 8 ####[facility] LABIA [id number] [place] [address] [place] HbA1c (Bld) on 02-18-2023 Average glucose Estimated 194 mg/dL [facility] from glycated hemoglobin (Bld) [Mass/Vol] HbA1c (Bld) [Mass fraction] 8.4 % High 4.3 - 5.6 % [facility] Average glucose Estimated 194 mg/dL Normal [facility] from glycated hemoglobin (Bld) [Mass/Vol] Comment on above: Order Comment: Specimen Type : BLOOD SPECIMENOrdering Facility: [facility] Address: [address] Result Comment: eAG: (Estima mitul average glucose) is a calculated value from HgbA1c and is rep resentative of the average blood glucose level in the last 2- 3 month period. Performed By: #### 10409-7 # ###[facility] LABCLIA [id number] [place] [address] [place] HbA1c (Bld) [Mass fraction] 8.4 % High 4.3-5.6 [facility] Comment on above: Order Comment: Specimen Type : BLOOD SPECIMENOrdering Facility: [facility] Address: [address] [place] [address] Result Comment: [place] Richard betes Association guidelines indicate that patients with HgbA1c in the range 5.7-6.4% are at increased risk for development of diab etes, and intervention by lifestyle modification may be benefici al. HgbA1c greater or equal to 6.5% is considered diagnostic of richard betes. Performed By: #### 19622-6 # ###[facility] LABCLIA [id number] [place] [address] [place] LIPID PANEL, NONFASTING on 02-18-2023 Cholesterol [Mass/Vol] 148 mg/dL Normal <200 [facility] Comment on above: Order Comment: Specimen Type : BLOOD SPECIMENOrdering Facility: [facility] Address: [address] [place] [address] Result Comment: <200 mg/dL, Desirable 200-239 mg/dL, Borderline high>239 mg/dL, High Performed By: #### LIPNF, -8 ####[facility] LABCLIA [id number] [address] [place] HDL CHOLESTEROL, NF 37 mg/dL Low >39 [facility] Comment on above: Order Comment: Specimen Type : BLOOD SPECIMENOrdering Facility: [facility] Address: [address] [place] [address] Result Comment: 40-59 mg/dL, Acceptable>59 mg/dL, High: Negative risk factor for coronary hea rt disease<40 mg/dL, Low: Positive risk factor for coronary heart di sease Performed By: #### LIPNF, 323-8 ####[facility] LABCLIA [id number] [address] [place] LDL CHOLESTEROL, NF 87 mg/dL Normal <100 [facility] Comment on above: Order Comment: Specimen Type : BLOOD SPECIMENOrdering Facility: [facility] Address: [address] [place] [address] Result Comment: <100 mg/dL, Optimal 100-129 mg/dL, Near optimal/above optimal 130-15 9 mg/dL, Borderline high 160-189 mg/dL, High>189 mg/dL, Very highSec ondary prevention optimal LDL Cholesterol levels are recom mended to be < 70 mg/dL Performed By: #### LIPANN-MARIE, -8 ####[facility] LABCLIA [id number] [address] STATES OF [facility] LDL/HDL RATIO, NF 2.35 mg/dL Normal <2.54 [facility] Comment on above: Order Comment: Specimen Type : BLOOD SPECIMENOrdering Facility: [facility] Address: [address] Result Comment: Reference:1. National Cholesterol Education Program ATP III Guideline At-A-Glanc e Quick Desk Reference: National Heart, Lung, and Blood [place]abb. N atunc health nash Institutes of Health. 2001: NIH Publication No. 01-3305.2. A n International Atherosclerosis Society position paper: global recom mendations for the management of dyslipidemia: executive summ shaina, Atherosclerosis. 2014: 232(2):410-413. Performed By: #### LIAM, ####[facility] LABCLIA [id number] [address] [place] NON HDL CHOL, NF 111 mg/dL Normal <130 [facility] [place] Comment on above: Order Comment: Specimen Type : BLOOD SPECIMENOrdering Facility: [facility] Address: [place] [address] Result Comment: <130 mg/dL, Optimal 130-159 mg/dL, Near optimal/above optimal 160-18 9 mg/dL, Borderline high 190-219 mg/dL, High>219 mg/dL, Very highSec ondary prevention optimal non HDL Cholesterol levels are recom mended to be <100 mg/dL Performed By: #### LIPANN-MARIE, 323-8 ####[facility] LABCLIA [id number] [address] [place] [address] [place] T CHOL/HDL RATIO NF 4.00 mg/dL Normal <5.10 [facility] Comment on above: Order Comment: Specimen Type : BLOOD SPECIMENOrdering Facility: [facility] Address: [address] [place] [address] Performed By: #### LIPNF, 323-8 ####[facility] LABCLIA [id number] [place] [address] [place] TRIGLYCERIDES, NF 122 mg/dL Normal <150 [facility] Comment on above: Order Comment: Specimen Type : BLOOD SPECIMENOrdering Facility: [facility] Address: [address] [place], [place] [address] Result Comment: <150 mg/dL, Normal 150-199 mg/dL, Borderline high 200-499 mg/dL, High>499 mg/d L, Very high Performed By: #### LIPNF, 323-8 ####[facility] LABCLIA [id number] [place] [address] [place] VLDL CHOLESTEROL, NF 24 mg/dL Normal <30 [facility] Comment on above: Order Comment: Specimen Type : BLOOD SPECIMENOrdering Facility: [facility] Address: [address] [place], [place] [address] Performed By: #### LIPNF, 323-8 ####[facility] LABCLIA [id number] [place] [address] [place] CNPN on 02-04-2023 CNPN Normal [facility] CNPTOUTREACH on 02-03-2023 CNPTOUTREACH Normal [facility] CNPN on 01-30-2023 CNPN Normal [facility] CNPTOUTREACH on 01-28-2023 CNPTOUTREACH Normal [facility] CNPN on 01-21-2023 CNPN Normal [facility] CNPN on 01-20-2023 CNPN Normal [facility] CNPTOUTREACH on 01-17-2023 CNPTOUTREACH Normal [facility] Basic metabolic 2000 panel on 3 Anion gap [Moles/Vol] 12 mmol/L Normal 9-18 [facility] Comment on above: Order Comment: Specimen Type : BLOOD SPECIMENOrdering Facility: [facility] Address: [address] [place] [address] Performed By: #### 27143-3 # ###[facility]ATORYCLIA [id number] [facility] [place], [place] [address] [place] Calcium [Mass/Vol] 8.6 mg/dL Normal 8.5-10.2 [facility] Comment on above: Order Comment: Specimen Type : BLOOD SPECIMENOrdering Facility: [facility] Address: [address] [place] [address] Performed By: #### 64394-4 # ###[facility] LABORATORYCLIA [id number] [facility], [place] [address] [place] Chloride [Moles/Vol] 98 mmol/L Normal 97-105 [facility] Comment on above: Order Comment: Specimen Type : BLOOD SPECIMENOrdering Facility: [facility] Address: [address] [place] [address] Performed By: #### 09084-0 # ###[facility]ORATORYCLIA [id number] [place] [address] [place] CO2 [Moles/Vol] 27 mmol/L Normal 22-30 [facility] Comment on above: Order Comment: Specimen Type : BLOOD SPECIMENOrdering Facility: [facility] Address: [address] [place] [address] Performed By: #### 16745-7 # ###[facility]ORATORYCLIA [id number] [facility] [place] Creatinine [Mass/Vol] 0.95 mg/dL Normal 0.58-0.96 [facility] Comment on above: Order Comment: Specimen Type : BLOOD SPECIMENOrdering Facility: [facility] Address: [address] [place] [address] Performed By: #### 58093-3 # ###[facility]IA [id number] [address] OF [facility] ESTIMATED GLOMERULAR 75 mL/min/1.73m??? Normal >=[address] [facility] Medical FILTRATION RATE Center Comment on above: Order Comment: Specimen Type : BLOOD SPECIMENOrdering Facility: [facility] Address: [address] [place] [address] Result Comment: Estimated Gl omerular Filtration Rate [...] accurately reflect actual GFR. Performed By: #### 72600-9 # ###[facility]IA [id number] [address] OF [facility] Glucose [Mass/Vol] 212 mg/dL High 74-99 [facility] Comment on above: Order Comment: Specimen Type : BLOOD SPECIMENOrdering Facility: [facility] Address: [address] [place] [address] Result Comment: The [place] Diabetes Association (ADA) provides guidance for cutoff [...] Diabetes Care. 2016.39(Suppl 1). Performed By: #### 18111-5 # ###[facility]IA [id number] [address] [place] Potassium [Moles/Vol] 3.8 mmol/L Normal 3.7-5.1 [facility] Comment on above: Order Comment: Specimen Type : BLOOD SPECIMENOrdering Facility: [facility] Address: [address] [place] [address] Performed By: #### 99104-2 # ###[facility] LABORATORYCLIA [id number] [place] [id number] [place] Sodium [Moles/Vol] 137 mmol/L Normal 136-144 [facility] Comment on above: Order Comment: Specimen Type : BLOOD SPECIMENOrdering Facility: [facility] Address: [address] [place] [address] Performed By: #### 12077-9 # ###[facility] LABORATORYCLIA [id number] [address] [place] Urea nitrogen [Mass/Vol] 12 mg/dL Normal 7-21 [facility] Comment on above: Order Comment: Specimen Type : BLOOD SPECIMENOrdering Facility: [facility] Address: [address] [place] [address] Performed By: #### 41856-8 # ###[facility] LABORATORYCLIA [id number] [place] [id number] [place] CASE MANAGEM on 01-16-2023 CASE MANAGEM Normal [facility] CBC panel Auto (Bld) on 01-16-2023 Erythrocyte distribution width 16.8 % High 11.5-15.0 [facility] (RBC) [Ratio] Comment on above: Order Comment: Specimen Type : BLOOD SPECIMENOrdering Facility: [facility] Address: [address] [place] [address] Performed By: #### 48310-1 # ###[facility] LABORATORYCLIA [id number] [address] [place] Hematocrit (Bld) [Volume fraction] 33.3 % Low 36.0-4 6.0 [facility] Comment on above: Order Comment: Specimen Type : BLOOD SPECIMENOrdering Facility: [facility] Address: [address] [place] [address] Performed By: #### 12235-9 # ###[facility] LABORATORYCLIA [id number] [facility] OF [facility] Hemoglobin (Bld) [Mass/Vol] 9.7 g/dL Low 11.5-15.5 [facility] Comment on above: Order Comment: Specimen Type : BLOOD SPECIMENOrdering Facility: [facility] Address: [address] [place] [address] Performed By: #### 64571-7 # ###[facility] LABORATORYCLIA [id number] [address] OF [facility] MCH (RBC) [Entitic mass] 27.6 pg Normal 26.0-34.0 [facility] Comment on above: Order Comment: Specimen Type : BLOOD SPECIMENOrdering Facility: [facility] Address: [address] [place] [address] Performed By: #### 68088-1 # ###[facility] LABORATORYCLIA [id number] [address] MCHC (RBC) [Mass/Vol] 29.1 g/dL Low 30.5-36.0 [facility] Comment on above: Order Comment: Specimen Type : BLOOD SPECIMENOrdering Facility: [facility] Address: [address] [place] [address] Performed By: #### 36814-6 # ###[facility] LABORATORYCLIA [id number] [facility], [address] STATES OF [facility] MCV (RBC) [Entitic vol] 94.9 fL Normal 80.0-100.0 [facility] Comment on above: Order Comment: Specimen Type : BLOOD SPECIMENOrdering Facility: [facility] Address: [address] [place] [address] Performed By: #### 93654-9 # ###[facility] LABORATORYCLIA [id number] [place] [address] [place] Nucleated RBC (Bld) [#/Vol] 0.02 10*3/uL High <0.01 [facility] Comment on above: Order Comment: Specimen Type : BLOOD SPECIMENOrdering Facility: [facility] Address: [address] [place] [address] Performed By: #### 00537-2 # ###[facility] LABORATORYCLIA [id number] [facility] [place], [address] [place] Platelet mean volume (Bld) 9.4 fL Normal 9.0-12.7 [facility] [Entitic vol] Comment on above: Order Comment: Specimen Type : BLOOD SPECIMENOrdering Facility: [facility] Address: [address] [place] [address] Performed By: #### 87944-9 # ###[facility] LABORATORYCLIA [id number] [address] [place] Platelets (Bld) [#/Vol] 234 10*3/uL Normal 150-400 [facility] Comment on above: Order Comment: Specimen Type : BLOOD SPECIMENOrdering Facility: [facility] Address: [address] [place] [address] Performed By: #### 71335-4 # ###[facility] LABORATORYCLIA [id number] [facility], [address] [place] RBC (Bld) [#/Vol] 3.51 10*6/uL Low 3.90-5.20 [facility] Comment on above: Order Comment: Specimen Type : BLOOD SPECIMENOrdering Facility: [facility] Address: [address] [place] [address] Performed By: #### 59525-1 # ###[facility] LABORATORYCLIA [id number] [facility], [address] [place] WBC (Bld) [#/Vol] 11.70 10*3/uL High 3.70-11.00 [facility] Comment on above: Order Comment: Specimen Type : BLOOD SPECIMENOrdering Facility: [facility] Address: [address] [place], [place] [address] [address] Performed By: #### 92539-2 # ###[facility]ATORYCLIA [id number] [facility] [place] [place] [address] [place] CNDS on 01-16-2023 CNDS Normal [facility] NURSING PROG on 01-16-2023 NURSING PROG Normal [facility] Basic metabolic 2000 panel on 3 Anion gap [Moles/Vol] 10 mmol/L Normal 9-18 [facility] Comment on above: Order Comment: Specimen Type : BLOOD SPECIMENOrdering Facility: [facility] Address: [address] [place] [address] Performed By: #### 67370-1 # ###[facility]ATORYCLIA [id number] [facility] [place] [place] [address] [place] Calcium [Mass/Vol] 8.8 mg/dL Normal 8.5-10.2 [facility] Comment on above: Order Comment: Specimen Type : BLOOD SPECIMENOrdering Facility: [facility] Address: [address] [place] [address] Performed By: #### 09588-6 # ###[facility]ORATORYCLIA [id number] [facility] [place] [address] [place] Chloride [Moles/Vol] 99 mmol/L Normal 97-105 [facility] Comment on above: Order Comment: Specimen Type : BLOOD SPECIMENOrdering Facility: [facility] Address: [address] [place] [address] Performed By: #### 59516-7 # ###[facility]ORATORYCLIA [id number] [facility] [place] [address] [place] CO2 [Moles/Vol] 29 mmol/L Normal 22-30 [facility] Comment on above: Order Comment: Specimen Type : BLOOD SPECIMENOrdering Facility: [facility] Address: [address] [place] [address] Performed By: #### 30886-2 # ###[facility]ORATORYCLIA [id number] [place] [id number] [place] STATES OF [facility] Creatinine [Mass/Vol] 0.85 mg/dL Normal 0.58-0.96 [facility] Comment on above: Order Comment: Specimen Type : BLOOD SPECIMENOrdering Facility: [facility] Address: [address] [place] [address] Performed By: #### 43074-5 # ###[facility] LABORATORYIA [id number] [place] [id number] [facility] ESTIMATED GLOMERULAR 86 mL/min/1.73m??? Normal >=60 A [facility] FILTRATION RATE Center Comment on above: Order Comment: Specimen Type : BLOOD SPECIMENOrdering Facility: [facility] Address: [address] [place] [address] Result Comment: Estimated Gl omerular Filtration Rate [...] accurately reflect actual GFR. Performed By: #### 23081-3 # ###[facility] LABORATORYIA [id number] [place] [id number] [place] Glucose [Mass/Vol] 184 mg/dL High 74-99 [facility] Comment on above: Order Comment: Specimen Type : BLOOD SPECIMENOrdering Facility: [facility] Address: [address] [place] [address] Result Comment: The [place] Diabetes Association (ADA) provides guidance for cutoff [...] Standards of Medical Care in Diabetes 2016, [facility] Diabetes Association. Diabetes Care. 2016.39(Suppl 1). Performed By: #### 10669-1 # ###[facility] LABORATORYCLIA [id number] [address] [place] Potassium [Moles/Vol] 3.7 mmol/L Normal 3.7-5.1 [facility] Comment on above: Order Comment: Specimen Type : BLOOD SPECIMENOrdering Facility: [facility] Address: [address] [place] [address] Performed By: #### 39469-3 # ###[facility]IA [id number] [address] STATES OF [facility] Sodium [Moles/Vol] 138 mmol/L Normal 136-144 [facility] Comment on above: Order Comment: Specimen Type : BLOOD SPECIMENOrdering Facility: [facility] Address: [address] [place] [address] Performed By: #### 34545-5 # ###[facility] [id number] [address] [place] Urea nitrogen [Mass/Vol] 8 mg/dL Normal 7-21 [facility] Comment on above: Order Comment: Specimen Type : BLOOD SPECIMENOrdering Facility: [facility] Address: [address] [place] [address] Performed By: #### 41347-8 # ###[facility]ITALCLIA [id number] [address] [place] C trach+GC DNA Ur Ql SURESH+probe on 01-15 C. trachomatis+N. GC AMPLIFICATION: Normal [facility] gonorrhoeae DNA SURESH+probe Ql Negative for Neisseria go norrhoeae by amplification [facility] (U) CHLAMYDIA AMPLIFICATION: Negative for Chlamydia trachomatis by amplification Comment on above: Performed By: #### 50273-5 # ###[facility] LABORATORYCLIA [id number] [address] OF [facility] CASE MGT INIT ASSES on 01-15-2023 CASE MGT INIT ASSES Normal [facility] CBC panel Auto (Bld) on 01-15-2023 Erythrocyte distribution width 16.7 % High 11.5-15.0 [facility] (RBC) [Ratio] Comment on above: Order Comment: Specimen Type : BLOOD SPECIMENOrdering Facility: [facility] Address: [address] [place] [address] Performed By: #### 15605-4 # ###[facility] LABORATORYCLIA [id number] [address] Hematocrit (Bld) [Volume fraction] 35.8 % Low 36.0-4 6.0 [facility] Comment on above: Order Comment: Specimen Type : BLOOD SPECIMENOrdering Facility: [facility] Address: [address] [place] [address] Performed By: #### 25042-2 # ###[facility] LABORATORYCLIA [id number] [address] OF [facility] Hemoglobin (Bld) [Mass/Vol] 10.3 g/dL Low 11.5-15.5 [facility] Comment on above: Order Comment: Specimen Type : BLOOD SPECIMENOrdering Facility: [facility] Address: [address] [place] [address] Performed By: #### 34999-1 # ###[facility] LABORATORYCLIA [id number] [address] OF [place] MCH (RBC) [Entitic mass] 27.4 pg Normal 26.0-34.0 [facility] Comment on above: Order Comment: Specimen Type : BLOOD SPECIMENOrdering Facility: [facility] Address: [address] [place] [address] Performed By: #### 66507-4 # ###[facility] LABORATORYCLIA [id number] [address] MCHC (RBC) [Mass/Vol] 28.8 g/dL Low 30.5-36.0 [facility] Comment on above: Order Comment: Specimen Type : BLOOD SPECIMENOrdering Facility: [facility] Address: [address] [address] Performed By: #### 08914-1 # ###[facility] LABORATORYCLIA [id number] [facility] [place], [address] STATES OF [facility] MCV (RBC) [Entitic vol] 95.2 fL Normal 80.0-100.0 [facility] Comment on above: Order Comment: Specimen Type : BLOOD SPECIMENOrdering Facility: [facility] Address: [address] [address] Performed By: #### 90855-9 # ###[facility] LABORATORYCLIA [id number] [facility], [address] [place] Nucleated RBC (Bld) [#/Vol] 0.02 10*3/uL High <0.01 [facility] Comment on above: Order Comment: Specimen Type : BLOOD SPECIMENOrdering Facility: [facility] Address: [address] [address] Performed By: #### 19990-9 # ###[facility] LABORATORYCLIA [id number] [facility], [address] [place] Platelet mean volume (Bld) 9.4 fL Normal 9.0-12.7 [facility] [Entitic vol] Comment on above: Order Comment: Specimen Type : BLOOD SPECIMENOrdering Facility: [facility] Address: [address] [address] Performed By: #### 03620-9 # ###[facility] LABORATORYCLIA [id number] [facility], [address] Platelets (Bld) [#/Vol] 265 10*3/uL Normal 150-400 [facility] Comment on above: Order Comment: Specimen Type : BLOOD SPECIMENOrdering Facility: [facility] Address: [address] [address] Performed By: #### 00316-1 # ###[facility] LABORATORYCLIA [id number] [place] [address] [place] RBC (Bld) [#/Vol] 3.76 10*6/uL Low 3.90-5.20 [facility] Comment on above: Order Comment: Specimen Type : BLOOD SPECIMENOrdering Facility: [facility] Address: [address] [address] Performed By: #### 50680-7 # ###[facility]GIA [id number] [place] [address] [place] [facility] WBC (Bld) [#/Vol] 11.55 10*3/uL High 3.70-11.00 [facility] Comment on above: Order Comment: Specimen Type : BLOOD SPECIMENOrdering Facility: [facility] Address: [address] [place] [address] Performed By: #### 18706-9 # ###[facility] HUN[facility]BURGIA [id number] [address] OF [facility] CNPN on 01-15-2023 CNPN Normal [facility] CONSULT PROG on 01-15-2023 CONSULT PROG Normal [facility] HCG ( test) Ql (U) on 01-15-20 23 Specific gravity (U) [Rel 1.014 Normal 1.006-1.029 [facility] density] Comment on above: Order Comment: Specimen Type : URINE SPECIMENOrdering Facility: [facility] Address: [address] [place] [address] Result Comment: If specific gravity is <1.005 then results may be falsely negative. Serum HCG is recommended. Performed By: #### 2106-3 ## ##[facility]GIA [id number] [address] HCG Preg Ur Ql on 01-15-2023 HCG ( test) Ql (U) Negative Normal Negative [facility] Comment on above: Order Comment: Specimen Type : URINE SPECIMENOrdering Facility: [facility] Address: [address] [id number] Result Comment: This test is intended to aid in the early detection of . Very dilute ur ine samples, as indicated by a low specific gravity, may not co ntain civil rights representative levels of hCG. This test detects [...] for . Performed By: #### 2106-3 ## ##[facility]ITALCLIA [id number] [address] [place] T VAGINALIS AMPLIFICATION on 01-15-2023 T. vaginalis DNA Negative Normal Negative for Trichomonas [facility] SURESH+probe Ql (Unsp vaginalis by [facility] spec) Comment on above: Order Comment: Specimen Type : URINE SPECIMENOrdering Facility: [facility] Address: [address] [place], [place] [id number] Performed By: #### TRVAMP ## ##[facility] LABCLIA [id number] [facility] [place] [address] [place] ALLIED HEALTH on 01-14-2023 ALLIED HEALTH Normal [facility] ANES POSTPROC EVAL on 01-14-2023 ANES POSTPROC EVAL Normal [facility] ANES PRE-OP on 01-14-2023 ANES PRE-OP Normal [facility] BRIEF OP NOT on 01-14-2023 BRIEF OP NOT Normal [facility] Bacteria Wnd Cult on 01-14-2023 Bacteria identified Cx Nom (Wound) Abnormal [facility] Comment on above: Performed By: #### 6462-6 ## ##[facility] LABORATORYCLIA [id number] [place] [address] [place] Basic metabolic 2000 panel on 3 Anion gap [Moles/Vol] 10 mmol/L Normal 9-18 [facility] Comment on above: Order Comment: Specimen Type : BLOOD SPECIMENOrdering Facility: [facility] Address[facility] [address] [address] [place] [address] Performed By: #### 36897-4 # ###[facility]ORATORYCLIA [id number] [facility] EN[facility] [place] [address] [place] Calcium [Mass/Vol] 8.9 mg/dL Normal 8.5-10.2 [facility] Comment on above: Order Comment: Specimen Type : BLOOD SPECIMENOrdering Facility: [facility] Address: [address] [address] Performed By: #### 97073-4 # ###[facility]ORATORYCLIA [id number] [facility] [place] [address] [place] Chloride [Moles/Vol] 98 mmol/L Normal 97-105 [facility] Comment on above: Order Comment: Specimen Type : BLOOD SPECIMENOrdering Facility: [facility] Address: [address] [address] Performed By: #### 83883-9 # ###[facility]ORATORYCLIA [id number] [place] [address] [place] CO2 [Moles/Vol] 28 mmol/L Normal 22-30 [facility] Comment on above: Order Comment: Specimen Type : BLOOD SPECIMENOrdering Facility: [facility] Address: [address] [address] Performed By: #### 64635-5 # ###[facility]ORATORYCLIA [id number] [place] [address] [place] Creatinine [Mass/Vol] 0.82 mg/dL Normal 0.58-0.96 [facility] Comment on above: Order Comment: Specimen Type : BLOOD SPECIMENOrdering Facility: [facility] Address: [address] [address] Performed By: #### 44298-4 # ###[facility]ORATORYCLIA [id number] [place] [address] [place] ESTIMATED GLOMERULAR 90 mL/min/1.73m??? Normal >=60 A [facility] Comment on above: Order Comment: Specimen Type : BLOOD SPECIMENOrdering Facility: [facility] Address: [address] [place] [address] Result Comment: Estimated Gl omerular Filtration Rate [...] accurately reflect actual GFR. Performed By: #### 90719-5 # ###[facility]GIA [id number] [place] [address] [place] Glucose [Mass/Vol] 178 mg/dL High 74-99 [facility] Comment on above: Order Comment: Specimen Type : BLOOD SPECIMENOrdering Facility: [facility] Address: [address] [place] [address] Result Comment: [place] Diabetes Association (ADA) provides guidance for cutoff [...] Diabetes Care. 2016.39(Suppl 1). Performed By: #### 31131-2 # ###[facility] LABORATORYIA [id number] [place] [address] [place] Potassium [Moles/Vol] 3.9 mmol/L Normal 3.7-5.1 [facility] Comment on above: Order Comment: Specimen Type : BLOOD SPECIMENOrdering Facility: [facility] Address: [address] [address] Performed By: #### 63518-1 # ###[facility] LABORATORYCLIA [id number] [place] [address] [place] Sodium [Moles/Vol] 136 mmol/L Normal 136-144 [facility] Comment on above: Order Comment: Specimen Type : BLOOD SPECIMENOrdering Facility: [facility] Address: [address] [address] Performed By: #### 74983-1 # ###[facility] LABORATORYCLIA [id number] [place] [address] [place] Urea nitrogen [Mass/Vol] 11 mg/dL Normal 7-21 [facility] Comment on above: Order Comment: Specimen Type : BLOOD SPECIMENOrdering Facility: [facility] Address: [address] [address] Performed By: #### 15871-1 # ###[facility] LABORATORYCLIA [id number] [place] [address] [place] CBC panel Auto (Bld) on 01-14-2023 Erythrocyte distribution width 16.5 % High 11.5-15.0 [facility] (RBC) [Ratio] Comment on above: Order Comment: Specimen Type : BLOOD SPECIMENOrdering Facility: [facility] Address: [address] [address] Performed By: #### 04907-2 # ###[facility] LABORATORYCLIA [id number] [address] [place] Hematocrit (Bld) [Volume fraction] 33.1 % Low 36.0-4 6.0 [facility] Comment on above: Order Comment: Specimen Type : BLOOD SPECIMENOrdering Facility: [facility] Address: [address] [address] Performed By: #### 38703-6 # ###[facility] LABORATORYCLIA [id number] [facility], [address] [place] Hemoglobin (Bld) [Mass/Vol] 10.0 g/dL Low 11.5-15.5 [facility] Comment on above: Order Comment: Specimen Type : BLOOD SPECIMENOrdering Facility: [facility] Address: [address] [place] [address] Performed By: #### 60252-6 # ###[facility] LABORATORYCLIA [id number] [address] OF [facility] MCH (RBC) [Entitic mass] 28.0 pg Normal 26.0-34.0 [facility] Comment on above: Order Comment: Specimen Type : BLOOD SPECIMENOrdering Facility: [facility] Address: [address] [place] [address] Performed By: #### 06068-2 # ###[facility] LABORATORYCLIA [id number] [address] MCHC (RBC) [Mass/Vol] 30.2 g/dL Low 30.5-36.0 [facility] Comment on above: Order Comment: Specimen Type : BLOOD SPECIMENOrdering Facility: [facility] Address: [address] [place] [address] Performed By: #### 92121-7 # ###[facility] LABORATORYCLIA [id number] [address] OF [facility] MCV (RBC) [Entitic vol] 92.7 fL Normal 80.0-100.0 [facility] Comment on above: Order Comment: Specimen Type : BLOOD SPECIMENOrdering Facility: [facility] Address: [address] [place] [address] Performed By: #### 30550-2 # ###[facility]ORATORYCLIA [id number] [facility], [address] OF [facility] Nucleated RBC (Bld) [#/Vol] 10*3/uL Normal <0.01 [facility] Comment on above: Order Comment: Specimen Type : BLOOD SPECIMENOrdering Facility: [facility] Address: [address] [address] Performed By: #### 94830-9 # ###[facility] LABORATORYCLIA [id number] [address] [place] Platelet mean volume (Bld) 9.5 fL Normal 9.0-12.7 [facility] [Entitic vol] Comment on above: Order Comment: Specimen Type : BLOOD SPECIMENOrdering Facility: [facility] Address: [address] [address] Performed By: #### 92465-1 # ###[facility]ATORYCLIA [id number] [facility] [address] [place] Platelets (Bld) [#/Vol] 284 10*3/uL Normal 150-400 [facility] Comment on above: Order Comment: Specimen Type : BLOOD SPECIMENOrdering Facility: [facility] Address: [address] [address] Performed By: #### 02090-6 # ###[facility] LABORATORYCLIA [id number] [facility], [address] [place] [address] [place] RBC (Bld) [#/Vol] 3.57 10*6/uL Low 3.90-5.20 [facility] Comment on above: Order Comment: Specimen Type : BLOOD SPECIMENOrdering Facility: [facility] Address: [address] Performed By: #### 58587-3 # ###[facility]ORATORYCLIA [id number] [facility] EN[facility], [address] [place] WBC (Bld) [#/Vol] 9.64 10*3/uL Normal 3.70-11.00 [facility] Comment on above: Order Comment: Specimen Type : BLOOD SPECIMENOrdering Facility: [facility] Address: [address] [address] Performed By: #### 69837-6 # ###[facility]ORATORYCLIA [id number] [facility] [place] [address] [place] CNPN on 01-14-2023 CNPN Normal [facility] CNPTOUTREACH on 01-14-2023 CNPTOUTREACH Normal [facility] CT ABD/PEL W IVCON on 01-14-2023 CT ABD/PEL W IVCON Normal [facility] HISTORY PHYSICAL on 01-14-2023 HISTORY PHYSICAL Normal [facility] OPERATIVE NO on 01-14-2023 OPERATIVE NO Normal [facility] SARS-CoV-2 RNA Resp Ql SURESH+probe on SARS-CoV-2 (COVID-19) RNA COVID 19 RESULT: Normal [facility] SURESH+probe Ql (Resp) Not detected Center The method used is RT-PCR or an equivalent NAAT method . Reference Range(the expected result in uninfected jone viduals): Not detected Comment on above: Performed By: #### 51994-5 # ###[facility] LABORATORYCLIA [id number] [facility] [place] [address] [place] CNOV on 01-13-2023 CNOV Normal [facility] CNPN on 01-13-2023 CNPN Normal [facility] Basic metabolic 2000 panel on 3 Anion gap [Moles/Vol] 14 mmol/L Normal 9-18 [facility] Comment on above: Order Comment: Specimen Type : BLOOD SPECIMENOrdering Facility: [facility] Address: [address] [address] Performed By: #### 70811-8 # ###[facility] LABORATORYCLIA [id number] [place] [address] [place] Calcium [Mass/Vol] 9.4 mg/dL Normal 8.5-10.2 [facility] Comment on above: Order Comment: Specimen Type : BLOOD SPECIMENOrdering Facility: [facility] Address: [address] [address] Performed By: #### 31114-4 # ###[facility] LABORATORYCLIA [id number] [address] [place] Chloride [Moles/Vol] 101 mmol/L Normal 97-105 [facility] Comment on above: Order Comment: Specimen Type : BLOOD SPECIMENOrdering Facility: [facility] Address: [address] [place] [address] Performed By: #### 48832-4 # ###[facility]PITALCLIA [id number] [address] [place] CO2 [Moles/Vol] 26 mmol/L Normal 22-30 [facility] Comment on above: Order Comment: Specimen Type : BLOOD SPECIMENOrdering Facility: [facility] Address: [address] [place] [address] Performed By: #### 74938-5 # ###[facility]GIA [id number] [address] [place] Creatinine [Mass/Vol] 0.76 mg/dL Normal 0.58-0.96 [facility] Comment on above: Order Comment: Specimen Type : BLOOD SPECIMENOrdering Facility: [facility] Address: [address] [place] [address] Performed By: #### 92735-4 # ###[facility]GIA [id number] [address] [place] ESTIMATED GLOMERULAR 99 mL/min/1.73m??? Normal >=60 A [facility] Comment on above: Order Comment: Specimen Type : BLOOD SPECIMENOrdering Facility: [facility] Address: [address] [place] [address] Result Comment: Estimated Gl omerular Filtration Rate [...] accurately reflect actual GFR. Performed By: #### 99290-4 # ###[facility] LABORATORYCLIA [id number] [place] [address] [place] Glucose [Mass/Vol] 221 mg/dL High 74-99 [facility] Comment on above: Order Comment: Specimen Type : BLOOD SPECIMENOrdering Facility: [facility] Address: [address] [place] [address] Result Comment: The [place] Diabetes Association (ADA) provides guidance for cutoff [...] Standards of Medical Care in Diabetes 2016, [facility] Diabetes Association. Diabetes Care. 2016.39(Suppl 1). Performed By: #### 53947-2 # ###[facility]ORATORYCLIA [id number] [place] [address] [place] Potassium [Moles/Vol] 4.7 mmol/L Normal 3.7-5.1 [facility] Comment on above: Order Comment: Specimen Type : BLOOD SPECIMENOrdering Facility: [facility] Address: [address] [place] [address] Performed By: #### 99909-2 # ###[facility] LABORATORYCLIA [id number] [place] [id number] [place] Sodium [Moles/Vol] 141 mmol/L Normal 136-144 [facility] Comment on above: Order Comment: Specimen Type : BLOOD SPECIMENOrdering Facility: [facility] Address: [address] [place] [address] Performed By: #### 98647-0 # ###[facility] LABORATORYCLIA [id number] [place] [address] [place] Urea nitrogen [Mass/Vol] 15 mg/dL Normal 7-21 [facility] Comment on above: Order Comment: Specimen Type : BLOOD SPECIMENOrdering Facility: [facility] Address: [address] [address] Performed By: #### 08555-1 # ###[facility]ORATORYCLIA [id number] [facility] [place], [place] [address] [place] CBC W Auto Differential panel (Bld) on 01-12-2023 Basophils (Bld) [#/Vol] 0.09 10*3/uL Normal <0.11 [facility] Comment on above: Order Comment: Specimen Type : BLOOD SPECIMENOrdering Facility: [facility] Address: [address] [address] Performed By: #### 36201-6 # ###[facility]ORATORYCLIA [id number] [facility] [place], [place] [address] [place] Basophils/100 WBC (Bld) 0.9 % Normal [facility] Comment on above: Order Comment: Specimen Type : BLOOD SPECIMENOrdering Facility: [facility] Address: [address] [address] Performed By: #### 12915-9 # ###[facility]ATORYCLIA [id number] [facility], [address] [place] Differential cell count method Nom (Bld) Auto Normal [facility] Comment on above: Order Comment: Specimen Type : BLOOD SPECIMENOrdering Facility: [facility] Address: [address] [address] Performed By: #### 83239-8 # ###[facility]ATORYCLIA [id number] [facility] [place], [place] [address] [place] Eosinophils (Bld) [#/Vol] 0.22 10*3/uL Normal <0.[address] [facility] Comment on above: Order Comment: Specimen Type : BLOOD SPECIMENOrdering Facility: [facility] Address: [address] [address] Performed By: #### 17945-5 # ###[facility]ATORYCLIA [id number] [facility] [place], [address] [place] Eosinophils/100 WBC (Bld) 2.1 % Normal [facility] Comment on above: Order Comment: Specimen Type : BLOOD SPECIMENOrdering Facility: [facility] Address: [address] [place] [address] Performed By: #### 38926-7 # ###[facility]ATORYCLIA [id number] [facility] EN[facility]RON[address] [place] Erythrocyte distribution width 16.6 % High 11.5-15.0 [facility] (RBC) [Ratio] Comment on above: Order Comment: Specimen Type : BLOOD SPECIMENOrdering Facility: [facility] Address: [address] [place] [address] Performed By: #### 26193-2 # ###[facility] LABORATORYCLIA [id number] [address] [place] Hematocrit (Bld) [Volume 37.0 % Normal 36.0-46.0 [facility] fraction] Comment on above: Order Comment: Specimen Type : BLOOD SPECIMENOrdering Facility: [facility] Address: [address] [place] [address] Performed By: #### 95186-4 # ###[facility] LABORATORYCLIA [id number] [facility], [address] [place] Hemoglobin (Bld) [Mass/Vol] 10.9 g/dL Low 11.5-15.5 [facility] Comment on above: Order Comment: Specimen Type : BLOOD SPECIMENOrdering Facility: [facility] Address: [address] [place] [address] Performed By: #### 15081-1 # ###[facility] LABORATORYCLIA [id number] [address] Immature granulocytes (Bld) 0.12 10*3/uL High <0.10 [facility] [#/Vol] Comment on above: Order Comment: Specimen Type : BLOOD SPECIMENOrdering Facility: [facility] Address: [address] [address] Performed By: #### 88134-0 # ###[facility]ATORYCLIA [id number] [facility] [address] Immature granulocytes/100 WBC (Bld) 1.1 % Normal [facility] Comment on above: Order Comment: Specimen Type : BLOOD SPECIMENOrdering Facility: [facility] Address: [address] [address] Performed By: #### 80521-1 # ###[facility]ATORYCLIA [id number] [facility], [address] [place] Lymphocytes (Bld) [#/Vol] 2.50 10*3/uL Normal 1.00-4.[address] [facility] Comment on above: Order Comment: Specimen Type : BLOOD SPECIMENOrdering Facility: [facility] Address: [address] [address] Performed By: #### 99321-2 # ###[facility]ATORYCLIA [id number] [address] Lymphocytes/100 WBC (Bld) 23.8 % Normal [facility] Comment on above: Order Comment: Specimen Type : BLOOD SPECIMENOrdering Facility: [facility] Address: [address] [address] Performed By: #### [id number] # ###[facility] LABORATORYCLIA [id number] [facility], [address] [place] MCH (RBC) [Entitic mass] 28.0 pg Normal 26.0-34.0 [facility] Comment on above: Order Comment: Specimen Type : BLOOD SPECIMENOrdering Facility: [facility] Address: [address] [address] Performed By: #### 16542-9 # ###[facility]ORATORYCLIA [id number] [facility] [place], [address] [place] MCHC (RBC) [Mass/Vol] 29.5 g/dL Low 30.5-36.0 [facility] Comment on above: Order Comment: Specimen Type : BLOOD SPECIMENOrdering Facility: [facility] Address: [address] [address] Performed By: #### 72056-5 # ###[facility]ATORYCLIA [id number] [facility] [place], [address] [place] MCV (RBC) [Entitic vol] 95.1 fL Normal 80.0-100.0 [facility] Comment on above: Order Comment: Specimen Type : BLOOD SPECIMENOrdering Facility: [facility] Address: [address] [address] Performed By: #### 72914-4 # ###[facility]ATORYCLIA [id number] [facility] [place], [address] [place] Monocytes (Bld) [#/Vol] 0.50 10*3/uL Normal <0.87 [facility] Comment on above: Order Comment: Specimen Type : BLOOD SPECIMENOrdering Facility: [facility] Address: [address] [address] Performed By: #### 39509-7 # ###[facility]ATORYCLIA [id number] [facility] [place], [address] Monocytes/100 WBC (Bld) 4.8 % Normal [facility] Comment on above: Order Comment: Specimen Type : BLOOD SPECIMENOrdering Facility: [facility] Address: [address] [address] Performed By: #### 90192-7 # ###[facility]ATORYCLIA [id number] [facility] [place], [address] [place] Neutrophils (Bld) [#/Vol] 7.07 10*3/uL Normal 1.45-7.[address] [facility] Comment on above: Order Comment: Specimen Type : BLOOD SPECIMENOrdering Facility: [facility] Address: [address] [address] Performed By: #### 60578-9 # ###[facility]ATORYCLIA [id number] [facility] [address] [place] Neutrophils/100 WBC (Bld) 67.3 % Normal [facility] Comment on above: Order Comment: Specimen Type : BLOOD SPECIMENOrdering Facility: [facility] Address: [address] [address] Performed By: #### 99681-1 # ###[facility] LABORATORYCLIA [id number] [address] [place] Nucleated RBC (Bld) [#/Vol] 0.02 10*3/uL High <0.01 [facility] Comment on above: Order Comment: Specimen Type : BLOOD SPECIMENOrdering Facility: [facility] Address: [address] [address] Performed By: #### 97602-2 # ###[facility] LABORATORYCLIA [id number] [address] [place] Nucleated RBC/100 WBC (Bld) 0.2 /100 WBC Normal [facility] [Ratio] Comment on above: Order Comment: Specimen Type : BLOOD SPECIMENOrdering Facility: [facility] Address: [address] [address] Performed By: #### 89496-8 # ###[facility] LABORATORYCLIA [id number] [address] Platelet mean volume (Bld) 9.5 fL Normal 9.0-12.7 A [facility] [Entitic vol] Comment on above: Order Comment: Specimen Type : BLOOD SPECIMENOrdering Facility: [facility] Address: [address] Performed By: #### 46877-0 # ###[facility] LABORATORYCLIA [id number] [address] Platelets (Bld) [#/Vol] 337 10*3/uL Normal 150-400 [facility] Comment on above: Order Comment: Specimen Type : BLOOD SPECIMENOrdering Facility: [facility] Address: [address] [address] Performed By: #### 63748-0 # ###[facility] LABORATORYCLIA [id number] [facility] [place] [place] [address] [place] RBC (Bld) [#/Vol] 3.89 10*6/uL Low 3.90-5.20 [facility] Comment on above: Order Comment: Specimen Type : BLOOD SPECIMENOrdering Facility: [facility] Address: [address] [address] Performed By: #### 97400-1 # ###[facility] LABORATORYCLIA [id number] [facility] [place] [address] [place] WBC (Bld) [#/Vol] 10.50 10*3/uL Normal 3.70-11.00 [facility] Comment on above: Order Comment: Specimen Type : BLOOD SPECIMENOrdering Facility: [facility] Address: [address] [address] Performed By: #### 39060-3 # ###[facility] LABORATORYCLIA [id number] [address] [place] ED Triage Note on 01-12-2023 ED Triage Note Normal [facility] CNPN on 01-06-2023 CNPN Normal [facility] CNCO on 01-03-2023 CNCO Letter Text Normal [facility] CNPN on 01-02-2023 CNPN Normal [facility] CNPTOUTREACH on 01-02-2023 CNPTOUTREACH Normal [facility] Basic metabolic 2000 panel on 3 Anion gap [Moles/Vol] 12 mmol/L Normal 9-18 [facility] Comment on above: Order Comment: Specimen Type : BLOOD SPECIMENOrdering Facility: [facility] Address: [address] [address] Performed By: #### 04144-4 # ###[facility] LABORATORYCLIA [id number] [facility] [place] [place] [address] [place] Calcium [Mass/Vol] 9.1 mg/dL Normal 8.5-10.2 [facility] Comment on above: Order Comment: Specimen Type : BLOOD SPECIMENOrdering Facility: [facility] Address: [address] [address] Performed By: #### 71662-9 # ###[facility]ORATORYCLIA [id number] [place] [address] [place] Chloride [Moles/Vol] 97 mmol/L Normal 97-105 [facility] Comment on above: Order Comment: Specimen Type : BLOOD SPECIMENOrdering Facility: [facility] Address: [address] [address] Performed By: #### 40875-5 # ###[facility]ORATORYCLIA [id number] [place] [address] [place] CO2 [Moles/Vol] 29 mmol/L Normal 22-30 [facility] Comment on above: Order Comment: Specimen Type : BLOOD SPECIMENOrdering Facility: [facility] Address: [address] [address] Performed By: #### 23180-3 # ###[facility]ORATORYCLIA [id number] [place] [address] [place] Creatinine [Mass/Vol] 0.90 mg/dL Normal 0.58-0.96 [facility] Comment on above: Order Comment: Specimen Type : BLOOD SPECIMENOrdering Facility: [facility] Address: [address] [place] [address] Performed By: #### 88169-9 # ###[facility]ORATORYCLIA [id number] [place] [address] [place] ESTIMATED GLOMERULAR 81 mL/min/1.73m??? Normal >=[address] [facility] Medical FIL[facility] Comment on above: Order Comment: Specimen Type : BLOOD SPECIMENOrdering Facility: [facility] Address: [address] [place] [address] Result Comment: Estimated Gl omerular Filtration Rate [...] accurately reflect actual GFR. Performed By: #### 47090-6 # ###[facility] LABORATORYCLIA [id number] [place] [address] [place] Glucose [Mass/Vol] 151 mg/dL High 74-99 [facility] Comment on above: Order Comment: Specimen Type : BLOOD SPECIMENOrdering Facility: [facility] Address: [address] [place], [place] [id number] Result Comment: The [place] Diabetes Association (ADA) provides guidance for cutoff [...] Standards of Medical Care in Diabetes 2016, [facility] Diabetes Association. Diabetes Care. 2016.39(Suppl 1). Performed By: #### 97307-7 # ###[facility] LABORATORYCLIA [id number] [place] [address] [place] Potassium [Moles/Vol] 4.2 mmol/L Normal 3.7-5.1 [facility] Comment on above: Order Comment: Specimen Type : BLOOD SPECIMENOrdering Facility: [facility] Address: [address] [place] [address] Performed By: #### 71415-4 # ###[facility] LABORATORYIA [id number] [address] [id number] [place] Sodium [Moles/Vol] 138 mmol/L Normal 136-144 [facility] Comment on above: Order Comment: Specimen Type : BLOOD SPECIMENOrdering Facility: [facility] Address: [address] [address] Performed By: #### 70262-9 # ###[facility] LABORATORYCLIA [id number] [place] [address] [place] Urea nitrogen [Mass/Vol] 21 mg/dL Normal 7-21 [facility] Comment on above: Order Comment: Specimen Type : BLOOD SPECIMENOrdering Facility: [facility] Address: [address] [address] Performed By: #### 87353-8 # ###[facility] LABORATORYCLIA [id number] [place] [address] [facility] CASE MANAGEM on 01-01-2023 CASE MANAGEM Normal [facility] CBC panel Auto (Bld) on 01-01-2023 Erythrocyte distribution width 15.8 % High 11.5-15.0 [facility] (RBC) [Ratio] Comment on above: Order Comment: Specimen Type : BLOOD SPECIMENOrdering Facility: [facility] Address: [address] [address] Performed By: #### 55979-2 # ###[facility] LABORATORYCLIA [id number] [address] [place] Hematocrit (Bld) [Volume fraction] 34.8 % Low 36.0-4 6.0 [facility] Comment on above: Order Comment: Specimen Type : BLOOD SPECIMENOrdering Facility: [facility] Address: [address] [address] Performed By: #### 30217-0 # ###[facility] LABORATORYCLIA [id number] [place] [address] [place] Hemoglobin (Bld) [Mass/Vol] 10.2 g/dL Low 11.5-15.5 [facility] Comment on above: Order Comment: Specimen Type : BLOOD SPECIMENOrdering Facility: [facility] Address: [address] [address] Performed By: #### 24536-6 # ###[facility] LABORATORYCLIA [id number] [facility] [place], [address] [place] MCH (RBC) [Entitic mass] 27.8 pg Normal 26.0-34.0 [facility] Comment on above: Order Comment: Specimen Type : BLOOD SPECIMENOrdering Facility: [facility] Address: [address] [place] [address] Performed By: #### 64250-3 # ###[facility] LABORATORYCLIA [id number] [facility] [place], [address] [place] MCHC (RBC) [Mass/Vol] 29.3 g/dL Low 30.5-36.0 [facility] Comment on above: Order Comment: Specimen Type : BLOOD SPECIMENOrdering Facility: [facility] Address: [address] [place] [address] Performed By: #### 54874-4 # ###[facility] LABORATORYCLIA [id number] [address] MCV (RBC) [Entitic vol] 94.8 fL Normal 80.0-100.0 [facility] Comment on above: Order Comment: Specimen Type : BLOOD SPECIMENOrdering Facility: [facility] Address: [address] [place] [address] Performed By: #### 27370-4 # ###[facility] LABORATORYCLIA [id number] [address] Nucleated RBC (Bld) [#/Vol] 0.02 10*3/uL High <0.01 [facility] Comment on above: Order Comment: Specimen Type : BLOOD SPECIMENOrdering Facility: [facility] Address: [address] [place] [address] Performed By: #### 13150-8 # ###[facility]ORATORYCLIA [id number] [facility] [place], [address] [place] Platelet mean volume (Bld) 9.4 fL Normal 9.0-12.7 [facility] [Entitic vol] Comment on above: Order Comment: Specimen Type : BLOOD SPECIMENOrdering Facility: [facility] Address: [address] [address] Performed By: #### 77180-4 # ###[facility] LABORATORYCLIA [id number] [place] [address] [facility] [place] Platelets (Bld) [#/Vol] 426 10*3/uL High 150-400 [facility] Comment on above: Order Comment: Specimen Type : BLOOD SPECIMENOrdering Facility: [facility] Address: [address] [address] Performed By: #### 81290-5 # ###[facility] LABORATORYCLIA [id number] [place] [address] [place] RBC (Bld) [#/Vol] 3.67 10*6/uL Low 3.90-5.20 [facility] Comment on above: Order Comment: Specimen Type : BLOOD SPECIMENOrdering Facility: [facility] Address: [address] [address] Performed By: #### 96678-5 # ###[facility] LABORATORYCLIA [id number] [facility], [place] [address] [place] [address] [place] WBC (Bld) [#/Vol] 13.51 10*3/uL High 3.70-11.00 [facility] Comment on above: Order Comment: Specimen Type : BLOOD SPECIMENOrdering Facility: [facility] Address: [address] [address] Performed By: #### 18808-5 # ###[facility] LABORATORYCLIA [id number] [place] [address] [facility] [place] CNDS on 01-01-2023 CNDS Normal [facility] CONSULT PROG on 01-01-2023 CONSULT PROG Normal [facility] THERAPY NT on 01-01-2023 THERAPY NT Normal [facility] THERAPY NT Normal [facility] ALLIED HEALTH on 12-31-2022 ALLIED HEALTH Normal [facility] ALLIED HEALTH Normal [facility] Basic metabolic 2000 panel on 3 Anion gap [Moles/Vol] 14 mmol/L Normal 9-18 [facility] Comment on above: Order Comment: Specimen Type : BLOOD SPECIMENOrdering Facility: [facility] Address: [address] [place] [address] Performed By: #### 12830-5, 75162-6, 2776- ####[facility]ORATORYCLIA [id number] [place] [address] [place] Calcium [Mass/Vol] 9.4 mg/dL Normal 8.5-10.2 [facility] Comment on above: Order Comment: Specimen Type : BLOOD SPECIMENOrdering Facility: [facility] Address: [address] [place] [address] Performed By: #### 95590-6, 03764-7, 2776- ####[facility] LABORATORYCLIA [id number] [place] [address] [place] Chloride [Moles/Vol] 94 mmol/L Low 97-105 [facility] Comment on above: Order Comment: Specimen Type : BLOOD SPECIMENOrdering Facility: [facility] Address: [address] [place] [address] Performed By: #### 01078-6, 07328-3, 2776-12 ####[facility] LABORATORYCLIA [id number] [place] [address] [place] CO2 [Moles/Vol] 29 mmol/L Normal 22-30 [facility] Comment on above: Order Comment: Specimen Type : BLOOD SPECIMENOrdering Facility: [facility] Address: [address] [place] [address] Performed By: #### 31602-6, 68188-3, 2776-12 ####[facility] LABORATORYCLIA [id number] [place] [address] [place] Creatinine [Mass/Vol] 0.98 mg/dL High 0.58-0.96 [facility] Comment on above: Order Comment: Specimen Type : BLOOD SPECIMENOrdering Facility: [facility] Address: [address] [place] [address] Performed By: #### 75045-8, 98712-9, 2777-1 ####[facility] HUNTINGBURGIA [id number] [address] [place] ESTIMATED GLOMERULAR 73 mL/min/1.73m??? Normal >=60 A [facility] FILTRATION RATE Center Comment on above: Order Comment: Specimen Type : BLOOD SPECIMENOrdering Facility: [facility] Address: [address] [place] [address] Result Comment: Estimated Gl omerular Filtration Rate [...] accurately reflect actual GFR. Performed By: #### 53994-3, 02865-7, 2777-1 ####[facility] HUNTINGBURGIA [id number] [place] [address] [place] Glucose [Mass/Vol] 173 mg/dL High 74-99 [facility] Comment on above: Order Comment: Specimen Type : BLOOD SPECIMENOrdering Facility: [facility] Address: [address] [place] [address] Result Comment: The [place] Diabetes Association (ADA) provides guidance for cutoff [...] of Medical Care in Diabetes 2016, [facility] Diabetes Association. Diabetes Care. 2016.39(Suppl 1). Performed By: #### 14610-3, 80617-2, 7- ####[facility] LABORATORYCLIA [id number] [address] STATES OF [facility] Potassium [Moles/Vol] 3.9 mmol/L Normal 3.7-5.1 [facility] Comment on above: Order Comment: Specimen Type : BLOOD SPECIMENOrdering Facility: [facility] Address: [address] [address] Performed By: #### 86089-4, 53737-3, 277- ####[facility] LABORATORYCLIA [id number] [address] STATES OF [facility] Sodium [Moles/Vol] 137 mmol/L Normal 136-144 [facility] Comment on above: Order Comment: Specimen Type : BLOOD SPECIMENOrdering Facility: [facility] Address: [address] [place] [address] Performed By: #### 35956-3, 73896-1, 2776-12 ####[facility]ITALCLIA [id number] [address] [place] Urea nitrogen [Mass/Vol] 19 mg/dL Normal 7-21 [facility] Comment on above: Order Comment: Specimen Type : BLOOD SPECIMENOrdering Facility: [facility] Address: [address] [place] [address] Performed By: #### 86635-0, 66895-3, 2776-12 ####[facility] LABORATORYCLIA [id number] [address] [place] CBC panel Auto (Bld) on 12-31-2022 Erythrocyte distribution width 15.9 % High 11.5-15.0 [facility] (RBC) [Ratio] Comment on above: Order Comment: Specimen Type : BLOOD SPECIMENOrdering Facility: [facility] Address: [address] [place] [address] Performed By: #### 88779-8 # ###[facility] LABORATORYCLIA [id number] [facility], [address] [place] Hematocrit (Bld) [Volume fraction] 34.1 % Low 36.0-4 6.0 [facility] Comment on above: Order Comment: Specimen Type : BLOOD SPECIMENOrdering Facility: [facility] Address: [address] [place] [address] Performed By: #### 21783-9 # ###[facility] LABORATORYCLIA [id number] [address] [place] Hemoglobin (Bld) [Mass/Vol] 10.1 g/dL Low 11.5-15.5 [facility] Comment on above: Order Comment: Specimen Type : BLOOD SPECIMENOrdering Facility: [facility] Address: [address] [place] [address] Performed By: #### 98454-8 # ###[facility] LABORATORYCLIA [id number] [address] [place] MCH (RBC) [Entitic mass] 27.8 pg Normal 26.0-34.0 [facility] Comment on above: Order Comment: Specimen Type : BLOOD SPECIMENOrdering Facility: [facility] Address: [address] [place] [address] Performed By: #### 04873-1 # ###[facility] LABORATORYCLIA [id number] [facility], [address] [place] MCHC (RBC) [Mass/Vol] 29.6 g/dL Low 30.5-36.0 [facility] Comment on above: Order Comment: Specimen Type : BLOOD SPECIMENOrdering Facility: [facility] Address: [address] [place] [address] Performed By: #### 26590-4 # ###[facility] LABORATORYCLIA [id number] [address] [place] MCV (RBC) [Entitic vol] 93.9 fL Normal 80.0-100.0 [facility] Comment on above: Order Comment: Specimen Type : BLOOD SPECIMENOrdering Facility: [facility] Address: [address] [place] [address] [place] [address] Performed By: #### 10545-6 # ###[facility]ORATORYCLIA [id number] [facility] [place], [address] [place] Nucleated RBC (Bld) [#/Vol] 10*3/uL Normal <0.01 [facility] Comment on above: Order Comment: Specimen Type : BLOOD SPECIMENOrdering Facility: [facility] Address: [address] [address] Performed By: #### 26415-0 # ###[facility] LABORATORYCLIA [id number] [facility] [place], [address] [place] Platelet mean volume (Bld) 9.2 fL Normal 9.0-12.7 [facility] [Entitic vol] Comment on above: Order Comment: Specimen Type : BLOOD SPECIMENOrdering Facility: [facility] Address: [address] [address] Performed By: #### 65828-5 # ###[facility] LABORATORYCLIA [id number] [facility], [address] [place] Platelets (Bld) [#/Vol] 435 10*3/uL High 150-400 [facility] Comment on above: Order Comment: Specimen Type : BLOOD SPECIMENOrdering Facility: [facility] Address: [address] [address] Performed By: #### 11375-8 # ###[facility] LABORATORYCLIA [id number] [facility], [address] [place] RBC (Bld) [#/Vol] 3.63 10*6/uL Low 3.90-5.20 [facility] Comment on above: Order Comment: Specimen Type : BLOOD SPECIMENOrdering Facility: [facility] Address: [address] [address] Performed By: #### 63909-2 # ###[facility] LABORATORYCLIA [id number] [facility] [place] [address] [place] WBC (Bld) [#/Vol] 15.84 10*3/uL High 3.70-11.00 [facility] Comment on above: Order Comment: Specimen Type : BLOOD SPECIMENOrdering Facility: [facility] Address: [address] [place] [address] Performed By: #### 12620-6 # ###[facility] LABORATORYCLIA [id number] [address] [place] CONSULT PROG on 12-31-2022 CONSULT PROG Normal [facility] CONSULT PROG Normal [facility] Calcium.ionized [Moles/Vol] on 12-31-19 23 Calcium.ionized (BldV) 1.16 mmol/L Normal 1.08-1.30 [facility] [Mass/Vol] Flom Comment on above: Order Comment: Specimen Type : BLOOD SPECIMENOrdering Facility: [facility] Address: [address] [place] [address] Performed By: #### 1994-0 ## ##[facility] LABORATORYCLIA [id number] [address] [place] Calcium.ionized adjusted to pH 1.12 mmol/L Normal 1.08-1.30 [facility] 7.4 (Bld) [Moles/Vol] Flom Comment on above: Order Comment: Specimen Type : BLOOD SPECIMENOrdering Facility: [facility] Address: [address] [place] [address] Performed By: #### 1994-0 ## ##[facility] LABORATORYCLIA [id number] [address] [place] Magnesium SerPl-mCnc on 12-31-2022 Magnesium [Mass/Vol] 1.5 mg/dL Low 1.7-2.3 [facility] Comment on above: Order Comment: Specimen Type : BLOOD SPECIMENOrdering Facility: [facility] Address: [address] [place] [address] Performed By: #### 69516-4, 77794-2, 2777-1 ####[facility] LABORATORYCLIA [id number] [place] [address] [facility] NURSING PROG on 12-31-2022 NURSING PROG Normal [facility] Phosphate SerPl-mCnc on 12-31-2022 Phosphate [Mass/Vol] 3.5 mg/dL Normal 2.7-4.8 [facility] Comment on above: Order Comment: Specimen Type : BLOOD SPECIMENOrdering Facility: [facility] Address: [address] [place] [address] Performed By: #### 89380-7, 48061-8, 2777-1 ####[facility] HOSPITAL LABORATORYCLIA [id number] [address] THERAPY NT on 12-31-2022 THERAPY NT Normal [facility] XR CHEST 1V FRONTAL on 12-31-2022 XR CHEST 1V FRONTAL Normal [facility] ALLIED HEALTH on 12-30-2022 ALLIED HEALTH Normal [facility] ARTERIAL BLOOD GASES on 12-30-2022 Base excess Calc (Bld) [Moles/Vol] 8 mmol/L High 0-2 [facility] Comment on above: Order Comment: Specimen Type : ARTERIAL BLOOD SPECIMENOrdering Facility: [facility] Address: [address] [place] [address] Performed By: #### ALLBG ### #[facility] LABORATORYCLIA [id number] [address] OF [facility] Body temperature 97.34 [degF] Normal [facility] Comment on above: Order Comment: Specimen Type : ARTERIAL BLOOD SPECIMENOrdering Facility: [facility] Address: [address] [place] [address] Performed By: #### ALLBG ### #[facility] LABORATORYCLIA [id number] [address] OF [place] Calcium.ionized (BldV) 1.19 mmol/L Normal 1.08-1.30 [facility] [Mass/Vol] Flom Comment on above: Order Comment: Specimen Type : ARTERIAL BLOOD SPECIMENOrdering Facility: [facility] Address: [address] [address] Performed By: #### ALLBG ### #[facility] LABORATORYCLIA [id number] [address] [place] Calcium.ionized adjusted to pH 1.20 mmol/L Normal 1.08-1.30 [facility] 7.4 (BldA) [Moles/Vol] Genoveva burciaga Comment on above: Order Comment: Specimen Type : ARTERIAL BLOOD SPECIMENOrdering Facility: [facility] Address: [address] [address] Performed By: #### ALLBG ### #[facility] LABORATORYCLIA [id number] [address] [place] Carboxyhemoglobin (BldA) [Mass 1.3 % Normal 0.0-2.0 [facility]] Center Comment on above: Order Comment: Specimen Type : ARTERIAL BLOOD SPECIMENOrdering Facility: [facility] Address: [address] [address] Result Comment: Carboxyhemog lobin Reference Range for Smokers: 2.0-8.0% Performed By: #### ALLBG ### #[facility] LABORATORYCLIA [id number] [place] [address] [place] Chloride [Moles/Vol] 100 mmol/L Low 102-109 [facility] Comment on above: Order Comment: Specimen Type : ARTERIAL BLOOD SPECIMENOrdering Facility: [facility] Address: [address] [address] Performed By: #### ALLBG ### #[facility] LABORATORYCLIA [id number] [address] [place] CO2 (Bld) [Partial pressure] 51 mm Hg High 36-46 [facility] Comment on above: Order Comment: Specimen Type : ARTERIAL BLOOD SPECIMENOrdering Facility: [facility] Address: [address] [address] Performed By: #### ALLBG ### #[facility] LABORATORYCLIA [id number] [facility] [place] [id number] [place] [address] [place] CO2 [Moles/Vol] 30 mmol/L High 22-28 [facility] Comment on above: Order Comment: Specimen Type : ARTERIAL BLOOD SPECIMENOrdering Facility: [facility] Address: [address] [address] Performed By: #### ALLBG ### #[facility] LABORATORYCLIA [id number] [facility] [address] [place] CO2 adjusted to patient's actual 49 mmHg High 36-46 [facility] temperature (Bld) [Partial pressure] Comment on above: Order Comment: Specimen Type : ARTERIAL BLOOD SPECIMENOrdering Facility: [facility] Address: [address] [address] Performed By: #### ALLBG ### #[facility] LABORATORYCLIA [id number] [facility] [address] OF [place] Glucose [Mass/Vol] 168 mg/dL High 60-105 [facility] Comment on above: Order Comment: Specimen Type : ARTERIAL BLOOD SPECIMENOrdering Facility: [facility] Address: [address] [address] Performed By: #### ALLBG ### #[facility] LABORATORYCLIA [id number] [facility], [address] [place] HCO3 (Bld) [Moles/Vol] 33 mmol/L High 22-26 [facility] Comment on above: Order Comment: Specimen Type : ARTERIAL BLOOD SPECIMENOrdering Facility: [facility] Address: [address] [address] Performed By: #### ALLBG ### #[facility] LABORATORYCLIA [id number] [address] OF [place] Hematocrit (Bld) [Volume fraction] 30.2 % Low 36.0-4 6.0 [facility] Comment on above: Order Comment: Specimen Type : ARTERIAL BLOOD SPECIMENOrdering Facility: [facility] Address: [address] [address] Performed By: #### ALLBG ### #[facility] LABORATORYCLIA [id number] [facility], [address] OF [facility] Hemoglobin (Bld) [Mass/Vol] 9.8 g/dL Low 11.5-15.5 [facility] Comment on above: Order Comment: Specimen Type : ARTERIAL BLOOD SPECIMENOrdering Facility: [facility] Address: [address] [place] [address] Performed By: #### ALLBG ### #[facility] LABORATORYCLIA [id number] [facility] [place] [id number] [place] [address] OF [place] Lactate [Moles/Vol] 0.8 mmol/L Normal 0.5-2.2 [facility] Comment on above: Order Comment: Specimen Type : ARTERIAL BLOOD SPECIMENOrdering Facility: [facility] Address: [address] [place] [address] Performed By: #### ALLBG ### #[facility] LABORATORYCLIA [id number] [facility], [address] OF [place] Methemoglobin (Bld) [Mass fraction] 1.0 % Normal 0.0-1 .5 [facility] Comment on above: Order Comment: Specimen Type : ARTERIAL BLOOD SPECIMENOrdering Facility: [facility] Address: [address] [place] [address] Performed By: #### ALLBG ### #[facility] LABORATORYCLIA [id number] [facility], [address] OF [place] O2 THERAPY Ventilator Normal [facility] Comment on above: Order Comment: Specimen Type : ARTERIAL BLOOD SPECIMENOrdering Facility: [facility] Address: [address] [place] [address] Performed By: #### ALLBG ### #[facility] LABORATORYCLIA [id number] [facility], [address] OF [place] Oxygen (Bld) [Partial pressure] 72 mm Hg Low 85-95 [facility] Comment on above: Order Comment: Specimen Type : ARTERIAL BLOOD SPECIMENOrdering Facility: [facility] Address: [address] [address] Performed By: #### ALLBG ### #[facility] LABORATORYCLIA [id number] [place] [address] [facility] Oxygen adjusted to patient's actual 69 mmHg Low 85-95 [facility] temperature (Bld) [Partial pressure] Comment on above: Order Comment: Specimen Type : ARTERIAL BLOOD SPECIMENOrdering Facility: [facility] Address: [address] [address] Performed By: #### ALLBG ### #[facility] LABORATORYCLIA [id number] [facility] [place] [id number] [place] [address] Oxyhemoglobin (BldA) [Mass fraction] 91 % Low 95-9 8 [facility] Comment on above: Order Comment: Specimen Type : ARTERIAL BLOOD SPECIMENOrdering Facility: [facility] Address: [address] [address] Performed By: #### ALLBG ### #[facility] LABORATORYCLIA [id number] [place] [address] [facility] pH (Bld) 7.42 [pH] Normal 7.35-7.45 [facility] Comment on above: Order Comment: Specimen Type : ARTERIAL BLOOD SPECIMENOrdering Facility: [facility] Address: [address] [address] Performed By: #### ALLBG ### #[facility] LABORATORYCLIA [id number] [place] [address] [facility] pH adjusted to patient's actual 7.43 Normal 7.35-7.45 [facility] temperature (Bld) Comment on above: Order Comment: Specimen Type : ARTERIAL BLOOD SPECIMENOrdering Facility: [facility] Address: [address] [address] Performed By: #### ALLBG ### #[facility] LABORATORYCLIA [id number] [place] [address] [facility] Potassium [Moles/Vol] 3.9 mmol/L Normal 3.5-5.0 [facility] Comment on above: Order Comment: Specimen Type : ARTERIAL BLOOD SPECIMENOrdering Facility: [facility] Address: [address] [address] Performed By: #### ALLBG ### #[facility] LABORATORYCLIA [id number] [address] [place] Sodium [Moles/Vol] 137 mmol/L Normal 136-144 [facility] Comment on above: Order Comment: Specimen Type : ARTERIAL BLOOD SPECIMENOrdering Facility: [facility] Address: [address] [address] Performed By: #### ALLBG ### #[facility] LABORATORYCLIA [id number] [address] [id number] [place] Basic metabolic 2000 panel on 3 Anion gap [Moles/Vol] 11 mmol/L Normal 9-18 [facility] Comment on above: Order Comment: Specimen Type : BLOOD SPECIMENOrdering Facility: [facility] Address: [address] [address] Performed By: #### 20573-5, 2776-12, ####[facility] LABORATORYCLIA [id number] [place] [address] [place] Calcium [Mass/Vol] 9.4 mg/dL Normal 8.5-10.2 [facility] Comment on above: Order Comment: Specimen Type : BLOOD SPECIMENOrdering Facility: [facility] Address: [address] [address] Performed By: #### 45960-9, 2776-12, ####[facility] LABORATORYCLIA [id number] [address] [place] Chloride [Moles/Vol] 94 mmol/L Low 97-105 [facility] Comment on above: Order Comment: Specimen Type : BLOOD SPECIMENOrdering Facility: [facility] Address: [address] [address] Performed By: #### 90007-5, 2776-12, ####[facility] HOSPITALCLIA [id number] [place] [address] [place] CO2 [Moles/Vol] 33 mmol/L High 22-30 [facility] Comment on above: Order Comment: Specimen Type : BLOOD SPECIMENOrdering Facility: [facility] Address: [address] [place] [address] Performed By: #### 84013-3, 2776-12, ####[facility] HUNTINGBURGIA [id number] [address] [id number] [place] Creatinine [Mass/Vol] 1.13 mg/dL High 0.58-0.96 [facility] Comment on above: Order Comment: Specimen Type : BLOOD SPECIMENOrdering Facility: [facility] Address: [address] [place] [address] Performed By: #### 67702-2, 2776-12, ####[facility] HUNTINGBURGIA [id number] [address] OF [facility] ESTIMATED GLOMERULAR 61 mL/min/1.73m??? Normal >=60 A [facility] FILTRATION RATE Center Comment on above: Order Comment: Specimen Type : BLOOD SPECIMENOrdering Facility: [facility] Address: [address] [place] [address] Result Comment: Estimated Gl omerular Filtration Rate [...] accurately reflect actual GFR. Performed By: #### 49924-8, 2776-12, ####[facility] LABORATORYCLIA [id number] [place] [address] [place] Glucose [Mass/Vol] 155 mg/dL High 74-99 [facility] Comment on above: Order Comment: Specimen Type : BLOOD SPECIMENOrdering Facility: [facility] Address: [address] [address] Result Comment: [place] Diabetes Association (ADA) provides guidance for cutoff [...] Standards of Medical Care in Diabetes 2016, [facility] Diabetes Association. Diabetes Care. 2016.39(Suppl 1). Performed By: #### 17511-0, 27705-31, ####[employer]TS[employer] [facility] LABORATORYCLIA [id number] [place] [address] [place] Potassium [Moles/Vol] 3.4 mmol/L Low 3.7-5.1 [facility] Comment on above: Order Comment: Specimen Type : BLOOD SPECIMENOrdering Facility: [facility] Address: [address] [id number] Performed By: #### 74488-9, 27705-31, ####[facility]napJ[facility] LABORATORYCLIA [id number] [place] [address] [place] Sodium [Moles/Vol] 138 mmol/L Normal 136-144 [facility] Comment on above: Order Comment: Specimen Type : BLOOD SPECIMENOrdering Facility: [facility] Address: [address] [facility] HE[facility] SERVICESMonae [address]ABORTY[address] Performed By: #### 68220-7, 27705-31, ####[employer] [facility] LABORATORYCLIA [id number] [place] [address] [place] Urea nitrogen [Mass/Vol] 22 mg/dL High 7-21 [facility] Comment on above: Order Comment: Specimen Type : BLOOD SPECIMENOrdering Facility: [facility] Address: [address] [place] [address] Performed By: #### 65166-7, 2777-1, 39926-2 ####[facility] LABORATORYCLIA [id number] [address] OF [place] CASE MANAGEM on 12-30-2022 CASE MANAGEM Normal [facility] CBC panel Auto (Bld) on 12-30-2022 Erythrocyte distribution width 16.1 % High 11.5-15.0 [facility] (RBC) [Ratio] Comment on above: Order Comment: Specimen Type : BLOOD SPECIMENOrdering Facility: [facility] Address: [address] [place] [address] Performed By: #### 48442-1 # ###[facility] LABORATORYCLIA [id number] [address] [place] Hematocrit (Bld) [Volume fraction] 30.3 % Low 36.0-4 6.0 [facility] Comment on above: Order Comment: Specimen Type : BLOOD SPECIMENOrdering Facility: [facility] Address: [address] [place] [address] Performed By: #### 59323-0 # ###[facility] LABORATORYCLIA [id number] [address] [place] Hemoglobin (Bld) [Mass/Vol] 9.0 g/dL Low 11.5-15.5 [facility] Comment on above: Order Comment: Specimen Type : BLOOD SPECIMENOrdering Facility: [facility] Address: [address] [place] [address] Performed By: #### 92777-0 # ###[facility] LABORATORYCLIA [id number] [place] [address] [place] MCH (RBC) [Entitic mass] 27.8 pg Normal 26.0-34.0 [facility] Comment on above: Order Comment: Specimen Type : BLOOD SPECIMENOrdering Facility: [facility] Address: [address] [address] Performed By: #### 84515-5 # ###[facility] LABORATORYCLIA [id number] [facility], [address] STATES [facility] MCHC (RBC) [Mass/Vol] 29.7 g/dL Low 30.5-36.0 [facility] Comment on above: Order Comment: Specimen Type : BLOOD SPECIMENOrdering Facility: [facility] Address: [address] [address] Performed By: #### 61225-2 # ###[facility] LABORATORYCLIA [id number] [facility], [address] [place] MCV (RBC) [Entitic vol] 93.5 fL Normal 80.0-100.0 [facility] Comment on above: Order Comment: Specimen Type : BLOOD SPECIMENOrdering Facility: [facility] Address: [address] [address] Performed By: #### 01425-1 # ###[facility] LABORATORYCLIA [id number] [facility], [address] OF [place] Nucleated RBC (Bld) [#/Vol] 10*3/uL Normal <0.01 [facility] Comment on above: Order Comment: Specimen Type : BLOOD SPECIMENOrdering Facility: [facility] Address: [address] [address] Performed By: #### 85148-4 # ###[facility] LABORATORYCLIA [id number] [facility], [address] [place] Platelet mean volume (Bld) 9.5 fL Normal 9.0-12.7 [facility] [Entitic vol] Comment on above: Order Comment: Specimen Type : BLOOD SPECIMENOrdering Facility: [facility] Address: [address] [address] Performed By: #### 19898-0 # ###[facility] LABORATORYCLIA [id number] [place] [address] [place] Platelets (Bld) [#/Vol] 401 10*3/uL High 150-400 [facility] Comment on above: Order Comment: Specimen Type : BLOOD SPECIMENOrdering Facility: [facility] Address: [address] [place] [address] Performed By: #### 55236-5 # ###[facility] LABORATORYCLIA [id number] [facility] [place] [address] [place] RBC (Bld) [#/Vol] 3.24 10*6/uL Low 3.90-5.20 [facility] Comment on above: Order Comment: Specimen Type : BLOOD SPECIMENOrdering Facility: [facility] Address: [address] [place] [address] Performed By: #### 13314-9 # ###[facility] LABORATORYCLIA [id number] [facility], [address] [place] WBC (Bld) [#/Vol] 14.20 10*3/uL High 3.70-11.00 [facility] Comment on above: Order Comment: Specimen Type : BLOOD SPECIMENOrdering Facility: [facility] Address: [address] [place] [address] Performed By: #### 01449-0 # ###[facility] LABORATORYCLIA [id number] [facility] [place], [facility] CONSULT on 12-30-2022 CONSULT Normal [facility] CONSULT PROG on 12-30-2022 CONSULT PROG Normal [facility] Calcium.ionized [Moles/Vol] on 12-30-19 23 Calcium.ionized (BldV) 1.19 mmol/L Normal 1.08-1.30 [facility] [Mass/Vol] Flom Comment on above: Order Comment: Specimen Type : BLOOD SPECIMENOrdering Facility: [facility] Address: [address] [place] [address] Performed By: #### 1995-0 ## ##[facility] LABORATORYCLIA [id number] [address] OF [place] Calcium.ionized adjusted to pH 1.23 mmol/L Normal 1.08-1.30 [facility] 7.4 (Bld) [Moles/Vol] Center Comment on above: Order Comment: Specimen Type : BLOOD SPECIMENOrdering Facility: [facility] Address: [address] [place] [address] Performed By: #### 1995-0 ## ##[facility] LABORATORYCLIA [id number] [address] OF [place] Magnesium SerPl-mCnc on 12-30-2022 Magnesium [Mass/Vol] 1.7 mg/dL Normal 1.7-2.3 [facility] Comment on above: Order Comment: Specimen Type : BLOOD SPECIMENOrdering Facility: [facility] Address: [address] [place] [address] Performed By: #### 01444-5, 27705-31, ####[facility]OSPITALCLIA [id number] [place] [address] [place] NUTRITION on 12-30-2022 NUTRITION Normal [facility] Phosphate SerPl-mCnc on 12-30-2022 Phosphate [Mass/Vol] 4.2 mg/dL Normal 2.7-4.8 [facility] Comment on above: Order Comment: Specimen Type : BLOOD SPECIMENOrdering Facility: [facility] Address: [address] [place] [address] Performed By: #### 42857-7, 27705-31, ####[facility] HOSPITALCLIA [id number] [place] [address] [place] XR CHEST 1V FRONTAL on 12-30-2022 XR CHEST 1V FRONTAL Normal [facility] ALLIED HEALTH on 12-29-2022 ALLIED HEALTH Normal [facility] Bacteria Spec Resp Cult on 12-29-2022 Bacteria identified CULTURE, RESPIRATORY: Normal [facility] Respiratory culture Nom No growth 2 [facility] (Unsp spec) GRAM STAIN: No organisms seen Many Polymorphonuclear leukocytes Rare Epithelial cells Comment on above: Performed By: #### 11882-5 # ###[facility] LABORATORYCLIA [id number] [place] [address] [place] Basic metabolic 2000 panel on 3 Anion gap [Moles/Vol] 10 mmol/L Normal 9-18 [facility] Comment on above: Order Comment: Specimen Type : BLOOD SPECIMENOrdering Facility: [facility] Address: [address] [place] [address] Performed By: #### 11341-9, , 2776-12 ####[facility] LABORATORYCLIA [id number] [place] [address] [place] Calcium [Mass/Vol] 9.5 mg/dL Normal 8.5-10.2 [facility] Comment on above: Order Comment: Specimen Type : BLOOD SPECIMENOrdering Facility: [facility] Address: [address] [place] [address] Performed By: #### 80002-6, , 2776-12 ####[facility] LABORATORYCLIA [id number] [place] [address] [place] Chloride [Moles/Vol] 94 mmol/L Low 97-105 [facility] Comment on above: Order Comment: Specimen Type : BLOOD SPECIMENOrdering Facility: [facility] Address: [address] [place] [address] Performed By: #### 67831-7, , 2776-12 ####[facility] LABORATORYCLIA [id number] [place] [address] [place] CO2 [Moles/Vol] 33 mmol/L High 22-30 [facility] Comment on above: Order Comment: Specimen Type : BLOOD SPECIMENOrdering Facility: [facility] Address: [address] [place] [address] Performed By: #### 93590-0, , 2776-12 ####[facility] LABORATORYCLIA [id number] [place] [address] [place] Creatinine [Mass/Vol] 1.17 mg/dL High 0.58-0.96 [facility] Comment on above: Order Comment: Specimen Type : BLOOD SPECIMENOrdering Facility: [facility] Address: [address] [place] [address] Performed By: #### 96551-9, , 2776-12 ####[facility] HOSPITALCLIA [id number] [place] [address] [place] ESTIMATED GLOMERULAR 59 mL/min/1.73m??? Low >=[address] [facility] RATE Center Comment on above: Order Comment: Specimen Type : BLOOD SPECIMENOrdering Facility: [facility] Address: [address] [place] [address] Result Comment: Estimated Gl omerular Filtration Rate [...] accurately reflect actual GFR. Performed By: #### 26120-4, , 2776-12 ####[facility]BURGIA [id number] [place] [address] [place] Glucose [Mass/Vol] 267 mg/dL High 74-99 [facility] Comment on above: Order Comment: Specimen Type : BLOOD SPECIMENOrdering Facility: [facility] Address: [address] LYNN[address]ae [address] Result Comment: The [place] Diabetes Association (ADA) provides guidance for cutoff [...] Standards of Medical Care in Diabetes 2016, [facility] Diabetes Association. Diabetes Care. 2016.39(Suppl 1). Performed By: #### 44481-5, , 2776-12 ####[facility] LABORATORYCLIA [id number] [place] [address] [place] Potassium [Moles/Vol] 4.2 mmol/L Normal 3.7-5.1 [facility] Comment on above: Order Comment: Specimen Type : BLOOD SPECIMENOrdering Facility: [facility] Address: [address] [place] [address] Performed By: #### 61280-6, , 2776-12 ####[facility] HOSPITALCLIA [id number] [address] STATES OF [facility] Sodium [Moles/Vol] 137 mmol/L Normal 136-144 [facility] Comment on above: Order Comment: Specimen Type : BLOOD SPECIMENOrdering Facility: [facility] Address: [address] [place] [address] Performed By: #### 58785-8, , 2776-12 ####[facility] HOSPITALCLIA [id number] [address] [place] Urea nitrogen [Mass/Vol] 19 mg/dL Normal 7-21 [facility] Comment on above: Order Comment: Specimen Type : BLOOD SPECIMENOrdering Facility: [facility] Address: [address] [address] Performed By: #### 97551-8, , 2776-12 ####[facility] LABORATORYCLIA [id number] [address] [place] CBC panel Auto (Bld) on 12-29-2022 Erythrocyte distribution width 16.2 % High 11.5-15.0 [facility] (RBC) [Ratio] Comment on above: Order Comment: Specimen Type : BLOOD SPECIMENOrdering Facility: [facility] Address: [address] [address] Performed By: #### 87025-5 # ###[facility] LABORATORYCLIA [id number] [address] Hematocrit (Bld) [Volume fraction] 29.8 % Low 36.0-4 6.0 [facility] Comment on above: Order Comment: Specimen Type : BLOOD SPECIMENOrdering Facility: [facility] Address: [address] [address] Performed By: #### 53199-0 # ###[facility] LABORATORYCLIA [id number] [address] Hemoglobin (Bld) [Mass/Vol] 8.9 g/dL Low 11.5-15.5 [facility] Comment on above: Order Comment: Specimen Type : BLOOD SPECIMENOrdering Facility: [facility] Address: [address] [place] [address] Performed By: #### 10244-2 # ###[facility] LABORATORYCLIA [id number] [address] STATES OF [facility] MCH (RBC) [Entitic mass] 28.0 pg Normal 26.0-34.0 [facility] Comment on above: Order Comment: Specimen Type : BLOOD SPECIMENOrdering Facility: [facility] Address: [address] [address] Performed By: #### 07681-6 # ###[facility] LABORATORYCLIA [id number] [address] [place] MCHC (RBC) [Mass/Vol] 29.9 g/dL Low 30.5-36.0 [facility] Comment on above: Order Comment: Specimen Type : BLOOD SPECIMENOrdering Facility: [facility] Address: [address] [address] Performed By: #### 73779-0 # ###[facility] LABORATORYCLIA [id number] [address] MCV (RBC) [Entitic vol] 93.7 fL Normal 80.0-100.0 [facility] Comment on above: Order Comment: Specimen Type : BLOOD SPECIMENOrdering Facility: [facility] Address: [address] [address] Performed By: #### 75892-1 # ###[facility]ORATORYCLIA [id number] [facility] [place] [place] [address] [place] Nucleated RBC (Bld) [#/Vol] 0.02 10*3/uL High <0.01 [facility] Comment on above: Order Comment: Specimen Type : BLOOD SPECIMENOrdering Facility: [facility] Address: [address] [address] Performed By: #### 09245-0 # ###[facility] LABORATORYCLIA [id number] [facility] [place] [address] [place] Platelet mean volume (Bld) 9.5 fL Normal 9.0-12.7 [facility] [Entitic vol] Comment on above: Order Comment: Specimen Type : BLOOD SPECIMENOrdering Facility: [facility] Address: [address] [address] Performed By: #### 47699-5 # ###[facility] LABORATORYCLIA [id number] [facility] [place], [address] [place] Platelets (Bld) [#/Vol] 394 10*3/uL Normal 150-400 [facility] Comment on above: Order Comment: Specimen Type : BLOOD SPECIMENOrdering Facility: [facility] Address: [address] Performed By: #### 96361-6 # ###[facility] LABORATORYCLIA [id number] [facility] [place], [address] [address] [place] RBC (Bld) [#/Vol] 3.18 10*6/uL Low 3.90-5.20 [facility] Comment on above: Order Comment: Specimen Type : BLOOD SPECIMENOrdering Facility: [facility] Address: [address] Performed By: #### 76791-9 # ###[facility] LABORATORYCLIA [id number] [place] [address] [place] WBC (Bld) [#/Vol] 16.20 10*3/uL High 3.70-11.00 [facility] Comment on above: Order Comment: Specimen Type : BLOOD SPECIMENOrdering Facility: [facility] Address: [address] [id number] Performed By: #### 76134-2 # ###[facility] LABORATORYCLIA [id number] [address] [place] CONSULT PROG on 12-29-2022 CONSULT PROG Normal [facility] CONSULT PROG Normal [facility] Calcium.ionized [Moles/Vol] on 12-29-19 23 Calcium.ionized (BldV) 1.16 mmol/L Normal 1.08-1.30 [facility] [Mass/Vol] Flom Comment on above: Order Comment: Specimen Type : BLOOD SPECIMENOrdering Facility: [facility] Address: [address] [id number] Performed By: #### 1994-0 ## ##[facility]PITALCLIA [id number] [address] [place] Calcium.ionized adjusted to pH 1.20 mmol/L Normal 1.08-1.30 [facility] 7.4 (Bld) [Moles/Vol] Flom Comment on above: Order Comment: Specimen Type : BLOOD SPECIMENOrdering Facility: [facility] Address: [address] [id number] Performed By: #### 1994- ## ##[facility] LABORATORYCLIA [id number] [address] [place] Magnesium SerPl-mCnc on 12-29-2022 Magnesium [Mass/Vol] 1.6 mg/dL Low 1.7-2.3 [facility] Comment on above: Order Comment: Specimen Type : BLOOD SPECIMENOrdering Facility: [facility] Address: [place] [address] Performed By: #### 83900-4, 69059-7, 2776-12 ####[facility] LABORATORYCLIA [id number] [place] [address] [place] Phosphate SerPl-mCnc on 12-29-2022 Phosphate [Mass/Vol] 4.6 mg/dL Normal 2.7-4.8 [facility] Comment on above: Order Comment: Specimen Type : BLOOD SPECIMENOrdering Facility: [facility] Address: [address] [address] Performed By: #### 40790-3, 57888-7, 2776-12 ####[facility]ORATORYCLIA [id number] [place] [address] [place] XR CHEST 1V FRONTAL on 12-29-2022 XR CHEST 1V FRONTAL Normal [facility] Basic metabolic 2000 panel on Anion gap [Moles/Vol] 11 mmol/L Normal 9-18 [facility] Comment on above: Order Comment: Specimen Type : BLOOD SPECIMENOrdering Facility: [facility] Address: [address] [address] Performed By: #### 99071-7, 2776-12 ####[facility]ORATORYCLIA [id number] [place] [address] [place] Calcium [Mass/Vol] 9.0 mg/dL Normal 8.5-10.2 [facility] Comment on above: Order Comment: Specimen Type : BLOOD SPECIMENOrdering Facility: [facility] Address: [address] [address] Performed By: #### 97843-1, 2776-12 ####[facility]ORATORYCLIA [id number] [place] [address] [place] Chloride [Moles/Vol] 94 mmol/L Low 97-105 [facility] Comment on above: Order Comment: Specimen Type : BLOOD SPECIMENOrdering Facility: [facility] Address: [address] [address] Performed By: #### 18834-6, 2776-12 ####[facility] LABORATORYCLIA [id number] [place] [address] [place] CO2 [Moles/Vol] 30 mmol/L Normal 22-30 [facility] Comment on above: Order Comment: Specimen Type : BLOOD SPECIMENOrdering Facility: [facility] Address: [address] [place] [address] Performed By: #### 57152-5, 2776-12 ####[facility] LABORATORYCLIA [id number] [place], [place] [address] [place] [address] [place] Creatinine [Mass/Vol] 1.10 mg/dL High 0.58-0.96 [facility] Comment on above: Order Comment: Specimen Type : BLOOD SPECIMENOrdering Facility: [facility] Address: [address] [place] [address] Performed By: #### 30220-6, 2776-12 ####[facility] H[facility]TINGBURGIA [id number] [address] [place] ESTIMATED GLOMERULAR 63 mL/min/1.73m??? Normal >=60 A [facility] FILTRATION RATE Center Comment on above: Order Comment: Specimen Type : BLOOD SPECIMENOrdering Facility: [facility] Address: [address] [place] [address] Result Comment: Estimated Gl omerular Filtration Rate [...] accurately reflect actual GFR. Performed By: #### 85595-4, 2776-12 ####[facility] LABORATORYCLIA [id number] [place] [address] [place] Glucose [Mass/Vol] 247 mg/dL High 74-99 [facility] Comment on above: Order Comment: Specimen Type : BLOOD SPECIMENOrdering Facility: [facility] Address: [address] [place] [address] Result Comment: The [place] Diabetes Association (ADA) provides guidance for cutoff [...] Standards of Medical Care in Diabetes 2016, [facility] Diabetes Association. Diabetes Care. 2016.39(Suppl 1). Performed By: #### 98780-9, 2777- ####[facility] LABORATORYCLIA [id number] [place] [address] [place] Potassium [Moles/Vol] 4.2 mmol/L Normal 3.7-5.1 [facility] Comment on above: Order Comment: Specimen Type : BLOOD SPECIMENOrdering Facility: [facility] Address: [address] [place] [address] Performed By: #### 29290-7, 2776-12 ####[facility] LABORATORYCLIA [id number] [place] [address] [place] Sodium [Moles/Vol] 135 mmol/L Low 136-144 [facility] Comment on above: Order Comment: Specimen Type : BLOOD SPECIMENOrdering Facility: [facility] Address: [address] [place], [place] [address] Performed By: #### 69502-6, 27705-31 ####[facility] LABORATORYCLIA [id number] [place] [address] [place] Urea nitrogen [Mass/Vol] 11 mg/dL Normal 7-21 [facility] Comment on above: Order Comment: Specimen Type : BLOOD SPECIMENOrdering Facility: [facility] Address: [address] [address] Performed By: #### 06383-7, 2777-1 ####[facility] LABORATORYCLIA [id number] [address] CBC panel Auto (Bld) on 12-28-2022 Erythrocyte distribution width 16.3 % High 11.5-15.0 [facility] (RBC) [Ratio] Comment on above: Order Comment: Specimen Type : BLOOD SPECIMENOrdering Facility: [facility] Address: [address] [address] Performed By: #### 63758-2 # ###[facility] LABORATORYCLIA [id number] [address] OF [facility] Hematocrit (Bld) [Volume fraction] 29.8 % Low 36.0-4 6.0 [facility] Comment on above: Order Comment: Specimen Type : BLOOD SPECIMENOrdering Facility: [facility] Address: [address] [address] Performed By: #### 88615-1 # ###[facility] LABORATORYCLIA [id number] [address] Hemoglobin (Bld) [Mass/Vol] 8.9 g/dL Low 11.5-15.5 [facility] Comment on above: Order Comment: Specimen Type : BLOOD SPECIMENOrdering Facility: [facility] Address: [address] [address] Performed By: #### 63852-3 # ###[facility] LABORATORYCLIA [id number] [address] [place] MCH (RBC) [Entitic mass] 28.2 pg Normal 26.0-34.0 [facility] Comment on above: Order Comment: Specimen Type : BLOOD SPECIMENOrdering Facility: [facility] Address: [address] [address] Performed By: #### 31759-5 # ###[facility]ORATORYCLIA [id number] [facility], [address] [place] MCHC (RBC) [Mass/Vol] 29.9 g/dL Low 30.5-36.0 [facility] Comment on above: Order Comment: Specimen Type : BLOOD SPECIMENOrdering Facility: [facility] Address: [address] [place] [address] Performed By: #### 50581-3 # ###[facility] LABORATORYCLIA [id number] [facility] [place], [address] [place] MCV (RBC) [Entitic vol] 94.3 fL Normal 80.0-100.0 [facility] Comment on above: Order Comment: Specimen Type : BLOOD SPECIMENOrdering Facility: [facility] Address: [address] [place] [address] Performed By: #### 25001-8 # ###[facility] LABORATORYCLIA [id number] [facility], [address] [place] Nucleated RBC (Bld) [#/Vol] 0.02 10*3/uL High <0.01 [facility] Comment on above: Order Comment: Specimen Type : BLOOD SPECIMENOrdering Facility: [facility] Address: [address] [place] [address] Performed By: #### 91585-3 # ###[facility] LABORATORYCLIA [id number] [facility], [address] [place] Platelet mean volume (Bld) 9.4 fL Normal 9.0-12.7 [facility] [Entitic vol] Comment on above: Order Comment: Specimen Type : BLOOD SPECIMENOrdering Facility: [facility] Address: [address] [place] [address] Performed By: #### 08023-4 # ###[facility] LABORATORYCLIA [id number] [facility] [place] Platelets (Bld) [#/Vol] 359 10*3/uL Normal 150-400 [facility] Comment on above: Order Comment: Specimen Type : BLOOD SPECIMENOrdering Facility: [facility] Address: [address] [place] [address] [address] [place] [address] Performed By: #### 06201-1 # ###[facility]ORATORYCLIA [id number] [facility], [facility] [place] RBC (Bld) [#/Vol] 3.16 10*6/uL Low 3.90-5.20 [facility] Comment on above: Order Comment: Specimen Type : BLOOD SPECIMENOrdering Facility: [facility] Address: [address] [address] Performed By: #### 79391-0 # ###[facility] LABORATORYCLIA [id number] [address] [place] [id number] [facility] WBC (Bld) [#/Vol] 16.86 10*3/uL High 3.70-11.00 [facility] Comment on above: Order Comment: Specimen Type : BLOOD SPECIMENOrdering Facility: [facility] Address: [address] [place] [address] Performed By: #### 19255-6 # ###[facility] LABORATORYCLIA [id number] [address] OF [facility] CONSULT PROG on 12-28-2022 CONSULT PROG Normal [facility] Normal [facility] Calcium.ionized [Moles/Vol] on 12-28-19 23 Calcium.ionized (BldV) [Mass/Vol] 0.99 mmol/L Low 1.08-1. 30 [facility] Comment on above: Order Comment: Specimen Type : BLOOD SPECIMENOrdering Facility: [facility] Address: [address] [address] Performed By: #### 1995-0 ## ##[facility] LABORATORYCLIA [id number] [address] [place] Calcium.ionized adjusted to pH 7.4 1.07 mmol/L Low 1.08-1 .30 [facility] (d) [Moles/Vol] Center Comment on above: Order Comment: Specimen Type : BLOOD SPECIMENOrdering Facility: [facility] Address: [address] [address] Performed By: #### 1995-0 ## ##[facility] LABORATORYCLIA [id number] [place] [address] [facility] Magnesium SerPl-mCnc on 12-28-2022 Magnesium [Mass/Vol] 1.5 mg/dL Low 1.7-2.3 [facility] Comment on above: Order Comment: Specimen Type : BLOOD SPECIMENOrdering Facility: [facility] Address: [address] [address] Performed By: #### 64977-6 # ###[facility]ORATORYCLIA [id number] [address] [place] NURSING PROG on 12-28-2022 NURSING PROG Normal [facility] Phosphate SerPl-mCnc on 12-28-2022 Phosphate [Mass/Vol] 3.7 mg/dL Normal 2.7-4.8 [facility] Comment on above: Order Comment: Specimen Type : BLOOD SPECIMENOrdering Facility: [facility] Address: [address] [place] [address] Performed By: #### 27006-6, 2777-1 ####[facility]ORATORYCLIA [id number] [address] [place] Prealbumin [Mass/Vol] on 12-28-2022 Prealbumin Nephelometry [Mass/Vol] 10 mg/dL Low 17-36 [facility] Comment on above: Order Comment: Specimen Type : BLOOD SPECIMENOrdering Facility: [facility] Address: [address] [place] [address] Performed By: #### 75930-8 # ###[facility]ORATORYCLIA [id number] [address] [place] Vancomycin random [Mass/Vol] on 023 Vancomycin [Mass/Vol] 10.3 ug/mL Normal 10.0-20.0 [facility] Comment on above: Order Comment: Specimen Type : BLOOD SPECIMENOrdering Facility: [facility] Address: [address] [address] Result Comment: Reference ra nges and high/low indicator flags are provided as general guidelin es only. The treating physician must determine appropriate target levels/dosing based on the specific clinical situation. Performed By: #### 4091-5 ## ##[facility]ORATORYCLIA [id number] [facility] [place] [address] [place] XR CHEST 1V FRONTAL on 12-28-2022 XR CHEST 1V FRONTAL Normal [facility] ALLIED HEALTH on 12-27-2022 ALLIED HEALTH Normal [facility] ALLIED HEALTH Normal [facility] ANES POSTPROC EVAL on 12-27-2022 ANES POSTPROC EVAL Normal [facility] ARTERIAL BLOOD GASES on 12-27-2022 Base excess Calc (Bld) [Moles/Vol] 3 mmol/L High 0-2 [facility] Comment on above: Order Comment: Specimen Type : ARTERIAL BLOOD SPECIMENOrdering Facility: [facility] Address: [address] [address] Performed By: #### ALLBG ### #[facility]ORATORYCLIA [id number] [facility], [place] [address] [place] Body temperature 100.76 [degF] Normal [facility] Comment on above: Order Comment: Specimen Type : ARTERIAL BLOOD SPECIMENOrdering Facility: [facility] Address: [address] [address] Performed By: #### ALLBG ### #[facility]ORATORYCLIA [id number] [facility] [place] [address] [place] Calcium.ionized (BldV) 1.16 mmol/L Normal 1.08-1.30 [facility] [Mass/Vol] Center Comment on above: Order Comment: Specimen Type : ARTERIAL BLOOD SPECIMENOrdering Facility: [facility] Address: [address] [address] Performed By: #### ALLBG ### #[facility]ATORYCLIA [id number] [address] Calcium.ionized adjusted to pH 1.16 mmol/L Normal 1.08-1.30 [facility] 7.4 (BldA) [Moles/Vol] Genoveva burciaga Comment on above: Order Comment: Specimen Type : ARTERIAL BLOOD SPECIMENOrdering Facility: [facility] Address: [address] [place] [address] Performed By: #### ALLBG ### #[facility]ATORYCLIA [id number] [address] OF [facility] Carboxyhemoglobin (BldA) [Mass 1.5 % Normal 0.0-2.0 [facility]] Center Comment on above: Order Comment: Specimen Type : ARTERIAL BLOOD SPECIMENOrdering Facility: [facility] Address: [address] [place] [address] Result Comment: Carboxyhemog lobin Reference Range for Smokers: 2.0-8.0% Performed By: #### ALLBG ### #[facility]ATORYCLIA [id number] [address] OF [facility] Chloride [Moles/Vol] 104 mmol/L Normal 102-109 [facility] Comment on above: Order Comment: Specimen Type : ARTERIAL BLOOD SPECIMENOrdering Facility: [facility] Address: [address] [place] [address] Performed By: #### ALLBG ### #[facility]ATORYCLIA [id number] [address] [place] CO2 (Bld) [Partial pressure] 48 mm Hg High 36-46 [facility] Comment on above: Order Comment: Specimen Type : ARTERIAL BLOOD SPECIMENOrdering Facility: [facility] Address: [address] [place] [address] Performed By: #### ALLBG ### #[facility]ATORYCLIA [id number] [address] OF [place] CO2 [Moles/Vol] 27 mmol/L Normal 22-28 [facility] Comment on above: Order Comment: Specimen Type : ARTERIAL BLOOD SPECIMENOrdering Facility: [facility] Address: [address] [address] Performed By: #### ALLBG ### #[facility]ATORYCLIA [id number] [facility] [place], [facility]307 [facility] CO2 adjusted to patient's actual 51 mmHg High 36-46 [facility] temperature (Bld) [Partial pressure] Comment on above: Order Comment: Specimen Type : ARTERIAL BLOOD SPECIMENOrdering Facility: [facility] Address: [address] [address] Performed By: #### ALLBG ### #[facility]ORATORYCLIA [id number] [facility], [address] [place] Glucose [Mass/Vol] 267 mg/dL High 60-105 [facility] Comment on above: Order Comment: Specimen Type : ARTERIAL BLOOD SPECIMENOrdering Facility: [facility] Address: [address] [address] Performed By: #### ALLBG ### #[facility]ATORYCLIA [id number] [facility] [place], [address] HCO3 (Bld) [Moles/Vol] 28 mmol/L High 22-26 [facility] Comment on above: Order Comment: Specimen Type : ARTERIAL BLOOD SPECIMENOrdering Facility: [facility] Address: [address] [address] Performed By: #### ALLBG ### #[facility]ORATORYCLIA [id number] [facility] [place], [address] [place] Hematocrit (Bld) [Volume fraction] 29.4 % Low 36.0-4 6.0 [facility] Comment on above: Order Comment: Specimen Type : ARTERIAL BLOOD SPECIMENOrdering Facility: [facility] Address: [address] [address] Performed By: #### ALLBG ### #[facility]ORATORYCLIA [id number] [facility] [place] [address] [place] Hemoglobin (Bld) [Mass/Vol] 9.5 g/dL Low 11.5-15.5 [facility] Comment on above: Order Comment: Specimen Type : ARTERIAL BLOOD SPECIMENOrdering Facility: [facility] Address: [address] [address] Performed By: #### ALLBG ### #[facility]ATORYCLIA [id number] [facility] [place] [id number] [facility] OF [place] Lactate [Moles/Vol] 1.2 mmol/L Normal 0.5-2.2 [facility] Comment on above: Order Comment: Specimen Type : ARTERIAL BLOOD SPECIMENOrdering Facility: [facility] Address: [address] [place] [address] Performed By: #### ALLBG ### #[facility] LABORATORYCLIA [id number] [facility] [address] [place] Methemoglobin (Bld) [Mass fraction] 1.2 % Normal 0.0-1 .5 [facility] Comment on above: Order Comment: Specimen Type : ARTERIAL BLOOD SPECIMENOrdering Facility: [facility] Address: [address] [address] Performed By: #### ALLBG ### #[facility] LABORATORYCLIA [id number] [facility] [address] [address] [place] O2 THERAPY Ventilator Normal [facility] Comment on above: Order Comment: Specimen Type : ARTERIAL BLOOD SPECIMENOrdering Facility: [facility] Address: [address] [address] Performed By: #### ALLBG ### #[facility]ORATORYCLIA [id number] [facility], [address] [place] Oxygen (Bld) [Partial pressure] 93 mm Hg Normal 85-95 [facility] Comment on above: Order Comment: Specimen Type : ARTERIAL BLOOD SPECIMENOrdering Facility: [facility] Address: [address] [address] Performed By: #### ALLBG ### #[facility]ORATORYCLIA [id number] [place] [address] [facility] [place] Oxygen adjusted to patient's actual 100 mmHg High 85-95 [facility] temperature (Bld) [Partial pressure] Comment on above: Order Comment: Specimen Type : ARTERIAL BLOOD SPECIMENOrdering Facility: [facility] Address: [address] [place] [address] Performed By: #### ALLBG ### #[facility]ORATORYCLIA [id number] [place] [address] [facility] Oxyhemoglobin (BldA) [Mass fraction] 94 % Low 95-9 8 [facility] Comment on above: Order Comment: Specimen Type : ARTERIAL BLOOD SPECIMENOrdering Facility: [facility] Address: [address] [place] [address] Performed By: #### ALLBG ### #[facility]ORATORYCLIA [id number] [facility], [facility] pH (Bld) 7.39 [pH] Normal 7.35-7.45 [facility] Comment on above: Order Comment: Specimen Type : ARTERIAL BLOOD SPECIMENOrdering Facility: [facility] Address: [address] [place] [address] Performed By: #### ALLBG ### #[facility]ATORYCLIA [id number] [place] [address] [facility] pH adjusted to patient's actual 7.37 Normal 7.35-7.45 [facility] temperature (Bld) Comment on above: Order Comment: Specimen Type : ARTERIAL BLOOD SPECIMENOrdering Facility: [facility] Address: [address] [place] [address] Performed By: #### ALLBG ### #[facility]ORATORYCLIA [id number] [place] [address] [facility] [place] Potassium [Moles/Vol] 4.5 mmol/L Normal 3.5-5.0 [facility] Comment on above: Order Comment: Specimen Type : ARTERIAL BLOOD SPECIMENOrdering Facility: [facility] Address: [address] [address] Performed By: #### ALLBG ### #[facility] LABORATORYCLIA [id number] [place] [address] [place] [facility] Sodium [Moles/Vol] 136 mmol/L Normal 136-144 [facility] Comment on above: Order Comment: Specimen Type : ARTERIAL BLOOD SPECIMENOrdering Facility: [facility] Address: [address] [address] Performed By: #### ALLBG ### #[facility] LABORATORYCLIA [id number] [place] [address] [place] [facility] Basic metabolic 2000 panel on 3 Anion gap [Moles/Vol] 10 mmol/L Normal 9-18 [facility] Comment on above: Order Comment: Specimen Type : BLOOD SPECIMENOrdering Facility: [facility] Address: [address] [address] Performed By: #### 32770-6, 1988-03, 2776-12, ####[facility] LABORATORYCLIA 36D03 [id number] [place] [address] [facility] [place] Calcium [Mass/Vol] 8.9 mg/dL Normal 8.5-10.2 [facility] Comment on above: Order Comment: Specimen Type : BLOOD SPECIMENOrdering Facility: [facility] Address: [address] Performed By: #### 04423-6, 1988-03, 2776-12, ####[facility] LABORATORYCLIA 36D03 [id number] [place] [address] [place] Chloride [Moles/Vol] 98 mmol/L Normal 97-105 [facility] Comment on above: Order Comment: Specimen Type : BLOOD SPECIMENOrdering Facility: [facility] Address: [address] [address] Performed By: #### 29609-6, 1988-03, 2777 ####[facility] LABORATORYCLIA 36D03 [id number] [place] [address] [place] CO2 [Moles/Vol] 28 mmol/L Normal 22-30 [facility] Comment on above: Order Comment: Specimen Type : BLOOD SPECIMENOrdering Facility: [facility] Address: [address] [place] [address] Performed By: #### 81497-3, 1988-03, 2776-12, ####[facility]GIA 36D03 [id number] [place] [address] [facility] Creatinine [Mass/Vol] 0.91 mg/dL Normal 0.58-0.96 [facility] Comment on above: Order Comment: Specimen Type : BLOOD SPECIMENOrdering Facility: [facility] Address: [address] [place] [address] Performed By: #### 60099-9, 1988-03, 2776-12, ####[facility]GIA 36D03 [id number] [place] [address] [place] ESTIMATED GLOMERULAR 79 mL/min/1.73m??? Normal >=60 A [facility] FILTRATION RATE Center Comment on above: Order Comment: Specimen Type : BLOOD SPECIMENOrdering Facility: [facility] Address: [address] [place] [address] Result Comment: Estimated Gl omerular Filtration Rate [...] accurately reflect actual GFR. Performed By: #### 82676-1, 1988-03, 2776-12, ####[facility] LABORATORYIA 36D03 [id number] [place] [address] [place] Glucose [Mass/Vol] 190 mg/dL High 74-99 [facility] Comment on above: Order Comment: Specimen Type : BLOOD SPECIMENOrdering Facility: [facility] Address: [address] [place] [address] Result Comment: [place] Diabetes Association (ADA) provides guidance for cutoff [...] Standards of Medical Care in Diabetes 2016, [facility] [place] [facility] Diabetes Association. Diabetes Care. 2016.39(Suppl 1). Performed By: #### 29858-0, 1988-03, 2776-12, ####[facility] LABORATORYCLIA 36D03 [id number] [place] [address] [place] Potassium [Moles/Vol] 4.5 mmol/L Normal 3.7-5.1 [facility] Comment on above: Order Comment: Specimen Type : BLOOD SPECIMENOrdering Facility: [facility] Address: [address] [address] Performed By: #### 37655-2, 1988-03, 2776-12, ####[facility] LABORATORYCLIA 36D03 [id number] [place] [address] [place] Sodium [Moles/Vol] 136 mmol/L Normal 136-144 [facility] Comment on above: Order Comment: Specimen Type : BLOOD SPECIMENOrdering Facility: [facility] Address: [address] [address] Performed By: #### 81295-1, 1988-03, 2776-12, ####[facility] LABORATORYCLIA 36D03 [id number] [place] [address] [place] Urea nitrogen [Mass/Vol] 12 mg/dL Normal 7-21 [facility] Comment on above: Order Comment: Specimen Type : BLOOD SPECIMENOrdering Facility: [facility] Address: [address] [address] Performed By: #### 14935-1, 1987-5, 2777-1, 38844-4 ####[facility] LABORATORYCLIA 36D03 [id number] [place] [address] [facility] CBC panel Auto (Bld) on 12-27-2022 Erythrocyte distribution width 16.2 % High 11.5-15.0 [facility] (RBC) [Ratio] Comment on above: Order Comment: Specimen Type : BLOOD SPECIMENOrdering Facility: [facility] Address: [address] [place] [address] Performed By: #### 40954-5 # ###[facility] LABORATORYCLIA [id number] [address] STATES OF [facility] Hematocrit (Bld) [Volume fraction] 28.4 % Low 36.0-4 6.0 [facility] Comment on above: Order Comment: Specimen Type : BLOOD SPECIMENOrdering Facility: [facility] Address: [address] [place] [address] Performed By: #### 78337-9 # ###[facility] LABORATORYCLIA [id number] [address] [id number] [place] [facility] Hemoglobin (Bld) [Mass/Vol] 8.5 g/dL Low 11.5-15.5 [facility] Comment on above: Order Comment: Specimen Type : BLOOD SPECIMENOrdering Facility: [facility] Address: [address] [place] [address] Performed By: #### 81277-8 # ###[facility] LABORATORYCLIA [id number] [address] [place] MCH (RBC) [Entitic mass] 28.1 pg Normal 26.0-34.0 [facility] Comment on above: Order Comment: Specimen Type : BLOOD SPECIMENOrdering Facility: [facility] Address: [address] [address] Performed By: #### 62084-0 # ###[facility] LABORATORYCLIA [id number] [address] [place] MCHC (RBC) [Mass/Vol] 29.9 g/dL Low 30.5-36.0 [facility] Comment on above: Order Comment: Specimen Type : BLOOD SPECIMENOrdering Facility: [facility] Address: [address] [address] Performed By: #### 63404-7 # ###[facility] LABORATORYCLIA [id number] [address] MCV (RBC) [Entitic vol] 93.7 fL Normal 80.0-100.0 [facility] Comment on above: Order Comment: Specimen Type : BLOOD SPECIMENOrdering Facility: [facility] Address: [address] [address] Performed By: #### 14167-1 # ###[facility] LABORATORYCLIA [id number] [address] Nucleated RBC (Bld) [#/Vol] 10*3/uL Normal <0.01 [facility] Comment on above: Order Comment: Specimen Type : BLOOD SPECIMENOrdering Facility: [facility] Address: [address] [address] Performed By: #### 09437-0 # ###[facility] LABORATORYCLIA [id number] [facility], [address] Platelet mean volume (Bld) 9.4 fL Normal 9.0-12.7 [facility] [Entitic vol] Comment on above: Order Comment: Specimen Type : BLOOD SPECIMENOrdering Facility: [facility] Address: [address] [address] Performed By: #### 52493-1 # ###[facility] LABORATORYCLIA [id number] [place] [address] [place] Platelets (Bld) [#/Vol] 333 10*3/uL Normal 150-400 [facility] Comment on above: Order Comment: Specimen Type : BLOOD SPECIMENOrdering Facility: [facility] Address: [address] [address] Performed By: #### 20297-7 # ###[facility] LABORATORYCLIA [id number] [place] [address] [place] RBC (Bld) [#/Vol] 3.03 10*6/uL Low 3.90-5.20 [facility] Comment on above: Order Comment: Specimen Type : BLOOD SPECIMENOrdering Facility: [facility] Address: [address] [address] Performed By: #### 72039-6 # ###[facility] LABORATORYCLIA [id number] [place] [address] [place] WBC (Bld) [#/Vol] 16.79 10*3/uL High 3.70-11.00 [facility] Comment on above: Order Comment: Specimen Type : BLOOD SPECIMENOrdering Facility: [facility] Address: [address] [address] Performed By: #### 05338-8 # ###[facility] LABORATORYCLIA [id number] [place] [address] [place] CONSULT PROG on 12-27-2022 CONSULT PROG Normal [facility] CRP SerPl-mCnc on 12-27-2022 CRP [Mass/Vol] 12.9 mg/dL High <0.9 [facility] Comment on above: Order Comment: Specimen Type : BLOOD SPECIMENOrdering Facility: [facility] Address: [address] [address] Performed By: #### 25485-4, 1987-, 2777-1, 38108-9 ####[facility] LABORATORYCLIA 36D03 [id number] [place] [address] [place] Calcium.ionized [Moles/Vol] on 12-27-19 23 Calcium.ionized (BldV) [Mass/Vol] 1.06 mmol/L Low 1.08-1. 30 [facility] Comment on above: Order Comment: Specimen Type : BLOOD SPECIMENOrdering Facility: [facility] Address: [address] Performed By: #### 1994- ## ##[facility] LABORATORYCLIA [id number] [place] [address] [place] Calcium.ionized adjusted to pH 1.11 mmol/L Normal 1.08-1.30 [facility] 7.4 (Bld) [Moles/Vol] Center Comment on above: Order Comment: Specimen Type : BLOOD SPECIMENOrdering Facility: [facility] Address: [address] [address] Performed By: #### ## ##[facility] LABORATORYCLIA [id number] [place] [address] [place] Magnesium SerPl-mCnc on 12-27-2022 Magnesium [Mass/Vol] 1.7 mg/dL Normal 1.7-2.3 [facility] Comment on above: Order Comment: Specimen Type : BLOOD SPECIMENOrdering Facility: [facility] Address: [address] [address] Performed By: #### 11667-5, 1988-03, 2776-12, ####[facility] LABORATORYCLIA 36D03 [id number] [place] [address] [facility] [place] Phosphate SerPl-mCnc on 12-27-2022 Phosphate [Mass/Vol] 4.4 mg/dL Normal 2.7-4.8 [facility] Comment on above: Order Comment: Specimen Type : BLOOD SPECIMENOrdering Facility: [facility] Address: [address] [address] Performed By: #### 23504-9, 1988-03, 2776-12, ####[facility] LABORATORYCLIA 36D03 [id number] [place] [address] [facility] [place] XR CHEST 1V FRONTAL on 12-27-2022 XR CHEST 1V FRONTAL Normal [facility] ALLIED HEALTH on 12-26-2022 ALLIED HEALTH Normal [facility] ALLIED HEALTH Normal [facility] ANES PRE-OP on 12-26-2022 ANES PRE-OP Normal [facility] Basic metabolic 2000 panel on 3 Anion gap [Moles/Vol] 10 mmol/L Normal 9-18 [facility] Comment on above: Order Comment: Specimen Type : BLOOD SPECIMENOrdering Facility: [facility] Address: [address] [address] Performed By: #### 90324-1, 257-8, 53960-4, 2776- ####[facility] LABORATORYCLIA 36D03 [id number] [address] [place] [id number] [place] Calcium [Mass/Vol] 9.1 mg/dL Normal 8.5-10.2 [facility] Comment on above: Order Comment: Specimen Type : BLOOD SPECIMENOrdering Facility: [facility] Address: [address] [address] Performed By: #### 18360-3, 257-8, 02103-9, 2776- ####[facility] LABORATORYCLIA 36D03 [id number] [place] [address] [place] Chloride [Moles/Vol] 101 mmol/L Normal 97-105 [facility] Comment on above: Order Comment: Specimen Type : BLOOD SPECIMENOrdering Facility: [facility] Address: [address] [address] Performed By: #### 11042-4, 257-8, 39529-7, 2776-1 ####[facility]ORATORYCLIA 36D03 [id number] [place] [address] [place] CO2 [Moles/Vol] 26 mmol/L Normal 22-30 [facility] Comment on above: Order Comment: Specimen Type : BLOOD SPECIMENOrdering Facility: [facility] Address: [address] [address] Performed By: #### 13520-0, 2571-8, 83036-2, 2776- ####[facility]PITALCLIA 36D03 [id number] [place] [address] [facility] Creatinine [Mass/Vol] 1.14 mg/dL High 0.58-0.96 [facility] Comment on above: Order Comment: Specimen Type : BLOOD SPECIMENOrdering Facility: [facility] Address: [address] [place] [address] Performed By: #### 53143-8, 257-8, 50774-5, 2776-12 ####[facility]IA 36D03 [id number] [place] [address] [facility] ESTIMATED GLOMERULAR 61 mL/min/1.73m??? Normal >=60 A [facility] FILTRATION RATE Center Comment on above: Order Comment: Specimen Type : BLOOD SPECIMENOrdering Facility: [facility] Address: [address] [place] [address] Result Comment: Estimated Gl omerular Filtration Rate [...] accurately reflect actual GFR. Performed By: #### 26934-4, 257-8, 17942-5, 2776-12 ####[facility]ORATORYCLIA 36D03 [id number] [place] [address] [facility] Glucose [Mass/Vol] 246 mg/dL High 74-99 [facility] Comment on above: Order Comment: Specimen Type : BLOOD SPECIMENOrdering Facility: [facility] Address: [address] [place] [address] Result Comment: The [place] Diabetes Association (ADA) provides guidance for cutoff [...] Standards of Medical Care in Diabetes 2016, [facility] Diabetes Association. Diabetes Care. 2016.39(Suppl 1). Performed By: #### 65014-0, 2570-8, , 2776-12 ####[facility] LABORATORYCLIA 36D03 [id number] [place] [address] [place] Potassium [Moles/Vol] 4.4 mmol/L Normal 3.7-5.1 [facility] Comment on above: Order Comment: Specimen Type : BLOOD SPECIMENOrdering Facility: [facility] Address: [address] [place] [address] Performed By: #### 88200-4, 8, , 2776-12 ####[facility] HOSPITALCLIA 36D03 [id number] [place] [address] [place] Sodium [Moles/Vol] 137 mmol/L Normal 136-144 [facility] Comment on above: Order Comment: Specimen Type : BLOOD SPECIMENOrdering Facility: [facility] Address: [address] [place] [address] Performed By: #### 11288-6, 8, , 2776-12 ####[facility] LABORATORYCLIA 36D03 [id number] [place] [address] [facility] [place] Urea nitrogen [Mass/Vol] 20 mg/dL Normal 7-21 [facility] Comment on above: Order Comment: Specimen Type : BLOOD SPECIMENOrdering Facility: [facility] Address: [address] [place] [address] Performed By: #### 89919-8, 2570-8, , 2776- ####[facility] LABORATORYCLIA [id number] [place] CASE MGT INIT ASSES on 12-26-2022 CASE MGT INIT ASSES Normal [facility] CBC panel Auto (Bld) on 12-26-2022 Erythrocyte distribution width 16.4 % High 11.5-15.0 [facility] (RBC) [Ratio] Comment on above: Order Comment: Specimen Type : BLOOD SPECIMENOrdering Facility: [facility] Address: [address] [address] Performed By: #### 77895-7 # ###[facility] LABORATORYCLIA [id number] [address] OF [facility] Hematocrit (Bld) [Volume fraction] 29.4 % Low 36.0-4 6.0 [facility] Comment on above: Order Comment: Specimen Type : BLOOD SPECIMENOrdering Facility: [facility] Address: [address] [place] [address] Performed By: #### 34379-0 # ###[facility] LABORATORYCLIA [id number] [address] STATES OF [facility] Hemoglobin (Bld) [Mass/Vol] 8.8 g/dL Low 11.5-15.5 [facility] Comment on above: Order Comment: Specimen Type : BLOOD SPECIMENOrdering Facility: [facility] Address: [address] [place] [address] Performed By: #### 69608-1 # ###[facility] LABORATORYCLIA [id number] [address] [place] MCH (RBC) [Entitic mass] 28.7 pg Normal 26.0-34.0 [facility] Comment on above: Order Comment: Specimen Type : BLOOD SPECIMENOrdering Facility: [facility] Address: [address] [place] [address] Performed By: #### 02801-6 # ###[facility] LABORATORYCLIA [id number] [address] [place] MCHC (RBC) [Mass/Vol] 29.9 g/dL Low 30.5-36.0 [facility] Comment on above: Order Comment: Specimen Type : BLOOD SPECIMENOrdering Facility: [facility] Address: [address] [address] Performed By: #### 16164-8 # ###[facility] LABORATORYCLIA [id number] [facility], [address] [place] MCV (RBC) [Entitic vol] 95.8 fL Normal 80.0-100.0 [facility] Comment on above: Order Comment: Specimen Type : BLOOD SPECIMENOrdering Facility: [facility] Address: [address] [address] Performed By: #### 00581-4 # ###[facility] LABORATORYCLIA [id number] [address] [place] Nucleated RBC (Bld) [#/Vol] 10*3/uL Normal <0.01 [facility] Comment on above: Order Comment: Specimen Type : BLOOD SPECIMENOrdering Facility: [facility] Address: [address] [address] Performed By: #### 85358-2 # ###[facility] LABORATORYCLIA [id number] [address] [place] Platelet mean volume (Bld) 9.4 fL Normal 9.0-12.7 [facility] [Entitic vol] Comment on above: Order Comment: Specimen Type : BLOOD SPECIMENOrdering Facility: [facility] Address: [address] Performed By: #### 27510-6 # ###[facility] LABORATORYCLIA [id number] [address] [place] Platelets (Bld) [#/Vol] 304 10*3/uL Normal 150-400 [facility] Comment on above: Order Comment: Specimen Type : BLOOD SPECIMENOrdering Facility: [facility] Address: [address] [address] Performed By: #### 29009-3 # ###[facility] LABORATORYCLIA [id number] [facility] [place] [address] [place] RBC (Bld) [#/Vol] 3.07 10*6/uL Low 3.90-5.20 [facility] Comment on above: Order Comment: Specimen Type : BLOOD SPECIMENOrdering Facility: [facility] Address: [address] [id number] Performed By: #### 04409-5 # ###[facility] LABORATORYCLIA [id number] [place] [address] [place] WBC (Bld) [#/Vol] 17.12 10*3/uL High 3.70-11.00 [facility] Comment on above: Order Comment: Specimen Type : BLOOD SPECIMENOrdering Facility: [facility] Address: [address] [id number] Performed By: #### 36056-0 # ###[facility]PITALCLIA [id number] [facility], [address] [place] CNPN on 12-26-2022 CNPN Normal [facility] CONSULT PROG on 12-26-2022 CONSULT PROG Normal [facility] Calcium.ionized [Moles/Vol] on 023 Calcium.ionized (BldV) 1.22 mmol/L Normal 1.08-1.30 [facility] [Mass/Vol] Center Comment on above: Order Comment: Specimen Type : BLOOD SPECIMENOrdering Facility: [facility] Address: [address] [id number] Performed By: #### 1995-0 ## ##[facility] LABORATORYCLIA [id number] [facility], [address] Calcium.ionized adjusted to pH 1.21 mmol/L Normal 1.08-1.30 [facility] 7.4 (Bld) [Moles/Vol] Center Comment on above: Order Comment: Specimen Type : BLOOD SPECIMENOrdering Facility: [facility] Address: [address] [address] Performed By: #### 1995-0 ## ##[facility] [id number] [address] HCG ( test) Ql (U) on 12-26-19 23 Specific gravity (U) [Rel 1.020 Normal 1.006-1.029 [facility] density] Comment on above: Order Comment: Specimen Type : URINE SPECIMENOrdering Facility: [facility] Address: [address] [address] Result Comment: If specific gravity is <1.005 then results may be falsely negative. Serum HCG is recommended. Performed By: #### 2106-3 ## ##[facility] [id number] [address] HCG Preg Ur Ql on 12-26-2022 HCG ( test) Ql (U) Negative Normal Negative [facility] Comment on above: Order Comment: Specimen Type : URINE SPECIMENOrdering Facility: [facility] Address: [address] [address] Result Comment: This test is intended to aid in the early detection of . Very dilute ur ine samples, as indicated by a low specific gravity, may not co ntain civil rights representative levels of hCG. This test detects [...] . Performed By: #### 2106-3 ## ##[facility] [id number] [address] [place] Magnesium SerPl-mCnc on 12-26-2022 Magnesium [Mass/Vol] 1.4 mg/dL Low 1.7-2.3 [facility] Comment on above: Order Comment: Specimen Type : BLOOD SPECIMENOrdering Facility: [facility] Address: [address] [place] [address] Performed By: #### 63381-6, 2570-8, , 2776-12 ####[facility] LABORATORYCLIA [id number] [place] [address] [facility] OPERATIVE NO on 12-26-2022 OPERATIVE NO Normal [facility] Phosphate SerPl-mCnc on 12-26-2022 Phosphate [Mass/Vol] 3.0 mg/dL Normal 2.7-4.8 [facility] Comment on above: Order Comment: Specimen Type : BLOOD SPECIMENOrdering Facility: [facility] Address: [address] [place] [address] Performed By: #### 07781-6, 8, , 2776-12 ####[facility] LABORATORYCLIA [id number] [place] [id number] [facility] Trigl SerPl-mCnc on 12-26-2022 Triglyceride [Mass/Vol] 198 mg/dL High <150 [facility] Comment on above: Order Comment: Specimen Type : BLOOD SPECIMENOrdering Facility: [facility] Address: [address] [place] [address] Result Comment: <150 mg/dL, Normal 150-199 mg/dL, Borderline high 200-499 mg/dL, High>499 mg/d L, Very highReference:1. National Cholesterol Education Progra m ATP III Guideline At-A-Glance Quick Desk Reference: National a rt, Lung, and Blood [place]. National Institutes of Health. 2001: NIH Publication No. 01-3305. Performed By: #### 89913-9, 2570-8, 20985-7, 2776-12 ####[facility] LABORATORYCLIA [id number] [place] [address] [facility] Triglyceride [Mass/Vol] on 12-26-2022 FASTING TIME 0 hrs Normal [facility] Comment on above: Order Comment: Specimen Type : BLOOD SPECIMENOrdering Facility: [facility] Address: [address] [address] Result Comment: impact 1.5 t ube feed continuous Performed By: #### 19110-2, 2571-8, 97998-8, 2777-1 ####[facility] LABORATORYCLIA [id number] [place] XR CHEST 1V FRONTAL on 12-26-2022 XR CHEST 1V FRONTAL Normal [facility] ALLIED HEALTH on 12-25-2022 ALLIED HEALTH Normal [facility] ALLIED HEALTH Normal [facility] ANES POSTPROC EVAL on 12-25-2022 ANES POSTPROC EVAL Normal [facility] ANES PRE-OP on 12-25-2022 ANES PRE-OP Normal [facility] ARTERIAL BLOOD GASES on 12-25-2022 Base excess Calc (Bld) [Moles/Vol] 0 mmol/L Normal 0-2 [facility] Comment on above: Order Comment: Specimen Type : ARTERIAL BLOOD SPECIMENOrdering Facility: [facility] Address: [address] [address] Performed By: #### ALLBG ### #[facility] LABORATORYCLIA [id number] [place] [address] [place] Body temperature 98.96 [degF] Normal [facility] Comment on above: Order Comment: Specimen Type : ARTERIAL BLOOD SPECIMENOrdering Facility: [facility] Address: [address] [address] Performed By: #### ALLBG ### #[facility] LABORATORYCLIA [id number] [place] [address] [place] Calcium.ionized (BldV) 1.18 mmol/L Normal 1.08-1.30 [facility] [Mass/Vol] Flom Comment on above: Order Comment: Specimen Type : ARTERIAL BLOOD SPECIMENOrdering Facility: [facility] Address: [address] [address] Performed By: #### ALLBG ### #[facility]ATORYCLIA [id number] [place], [place] [address] [place] [address] [place] Calcium.ionized adjusted to pH 1.15 mmol/L Normal 1.08-1.30 [facility] 7.4 (BldA) [Moles/Vol] Genoveva burciaga Comment on above: Order Comment: Specimen Type : ARTERIAL BLOOD SPECIMENOrdering Facility: [facility] Address: [address] [place] [address] Performed By: #### ALLBG ### #[facility]ATORYCLIA [id number] [address] [place] Carboxyhemoglobin (BldA) [Mass <1.0 Normal 0.0-2.0 [facility]] Center Comment on above: Order Comment: Specimen Type : ARTERIAL BLOOD SPECIMENOrdering Facility: [facility] Address: [address] [place] [address] Result Comment: Carboxyhemog lobin Reference Range for Smokers: 2.0-8.0% Performed By: #### ALLBG ### #[facility] LABORATORYCLIA [id number] [address] [place] Chloride [Moles/Vol] 102 mmol/L Normal 102-109 [facility] Comment on above: Order Comment: Specimen Type : ARTERIAL BLOOD SPECIMENOrdering Facility: [facility] Address: [address] [address] Performed By: #### ALLBG ### #[facility]ORATORYCLIA [id number] [address] [place] CO2 (Bld) [Partial pressure] 48 mm Hg High 36-46 [facility] Comment on above: Order Comment: Specimen Type : ARTERIAL BLOOD SPECIMENOrdering Facility: [facility] Address: [address] [address] Performed By: #### ALLBG ### #[facility]ATORYCLIA [id number] [address] [place] CO2 [Moles/Vol] 24 mmol/L Normal 22-28 [facility] Comment on above: Order Comment: Specimen Type : ARTERIAL BLOOD SPECIMENOrdering Facility: [facility] Address: [address] [place] [address] Performed By: #### ALLBG ### #[facility]ORATORYCLIA [id number] [place] [address] [facility] [place] CO2 adjusted to patient's actual 48 mmHg High 36-46 [facility] temperature (Bld) [Partial pressure] Comment on above: Order Comment: Specimen Type : ARTERIAL BLOOD SPECIMENOrdering Facility: [facility] Address: [address] [address] Performed By: #### ALLBG ### #[facility]ORATORYCLIA [id number] [facility] [place] [id number] [place] [address] [place] Glucose [Mass/Vol] 188 mg/dL High 60-105 [facility] Comment on above: Order Comment: Specimen Type : ARTERIAL BLOOD SPECIMENOrdering Facility: [facility] Address: [address] [address] Performed By: #### ALLBG ### #[facility]ORATORYCLIA [id number] [facility] [place] [id number] [place] [address] [place] HCO3 (Bld) [Moles/Vol] 26 mmol/L Normal 22-26 [facility] Comment on above: Order Comment: Specimen Type : ARTERIAL BLOOD SPECIMENOrdering Facility: [facility] Address: [address] [address] Performed By: #### ALLBG ### #[facility]ORATORYCLIA [id number] [place] [address] [place] Hematocrit (Bld) [Volume fraction] 28.1 % Low 36.0-4 6.0 [facility] Comment on above: Order Comment: Specimen Type : ARTERIAL BLOOD SPECIMENOrdering Facility: [facility] Address: [address] [address] Performed By: #### ALLBG ### #[facility]ORATORYCLIA [id number] [place] [address] [facility] OF [place] Hemoglobin (Bld) [Mass/Vol] 9.1 g/dL Low 11.5-15.5 [facility] Comment on above: Order Comment: Specimen Type : ARTERIAL BLOOD SPECIMENOrdering Facility: [facility] Address: [address] [place] [address] Performed By: #### ALLBG ### #[facility]ORATORYCLIA [id number] [facility] [place], [facility] OF [place] Lactate [Moles/Vol] 0.8 mmol/L Normal 0.5-2.2 [facility] Comment on above: Order Comment: Specimen Type : ARTERIAL BLOOD SPECIMENOrdering Facility: [facility] Address: [address] [place] [address] Performed By: #### ALLBG ### #[facility] LABORATORYCLIA [id number] [facility] [place], [facility] [place] Methemoglobin (Bld) [Mass fraction] % Normal 0.0-1 .5 [facility] Comment on above: Order Comment: Specimen Type : ARTERIAL BLOOD SPECIMENOrdering Facility: [facility] Address: [address] [place] [address] Performed By: #### ALLBG ### #[facility] LABORATORYCLIA [id number] [facility] [place], [facility]307 [facility] [place] O2 THERAPY Ventilator Normal [facility] Comment on above: Order Comment: Specimen Type : ARTERIAL BLOOD SPECIMENOrdering Facility: [facility] Address: [address] [address] Performed By: #### ALLBG ### #[facility] LABORATORYCLIA [id number] [facility] [place], [facility]307 [facility] [place] Oxygen (Bld) [Partial pressure] 174 mm Hg High 85-95 [facility] Comment on above: Order Comment: Specimen Type : ARTERIAL BLOOD SPECIMENOrdering Facility: [facility] Address: [address] [address] Performed By: #### ALLBG ### #[facility]ORATORYCLIA [id number] [place] [address] [facility] Oxygen adjusted to patient's actual 175 mmHg High 85-95 [facility] temperature (Bld) [Partial pressure] Comment on above: Order Comment: Specimen Type : ARTERIAL BLOOD SPECIMENOrdering Facility: [facility] Address: [address] [place] [address] Performed By: #### ALLBG ### #[facility]ATORYCLIA [id number] [facility] [place] [id number] [place] [address] Oxyhemoglobin (BldA) [Mass fraction] 96 % Normal 95-9 8 [facility] Comment on above: Order Comment: Specimen Type : ARTERIAL BLOOD SPECIMENOrdering Facility: [facility] Address: [address] [place] [address] Performed By: #### ALLBG ### #[facility]ATORYCLIA [id number] [facility] [place], [address] [place] pH (Bld) 7.35 [pH] Normal 7.35-7.45 [facility] Comment on above: Order Comment: Specimen Type : ARTERIAL BLOOD SPECIMENOrdering Facility: [facility] Address: [address] [place] [address] Performed By: #### ALLBG ### #[facility]ORATORYCLIA [id number] [facility] [place], [place] [address] [place] [address] pH adjusted to patient's actual 7.35 Normal 7.35-7.45 [facility] temperature (Bld) Comment on above: Order Comment: Specimen Type : ARTERIAL BLOOD SPECIMENOrdering Facility: [facility] Address: [address] [place] [address] Performed By: #### ALLBG ### #[facility]ORATORYCLIA [id number] [place] [address] [place] Potassium [Moles/Vol] 4.9 mmol/L Normal 3.5-5.0 [facility] Comment on above: Order Comment: Specimen Type : ARTERIAL BLOOD SPECIMENOrdering Facility: [facility] Address: [address] [address] Performed By: #### ALLBG ### #[facility]ORATORYCLIA [id number] [facility] [place], [address] [place] Sodium [Moles/Vol] 137 mmol/L Normal 136-144 [facility] Comment on above: Order Comment: Specimen Type : ARTERIAL BLOOD SPECIMENOrdering Facility: [facility] Address: [address] [address] Performed By: #### ALLBG ### #[facility]ORATORYCLIA [id number] [address] [place] Base deficit (BldA) [Moles/Vol] -2 mmol/L Normal -2-0 [facility] Comment on above: Order Comment: Specimen Type : ARTERIAL BLOOD SPECIMENOrdering Facility: [facility] Address: [address] [address] Performed By: #### ALLBG ### #[facility] LABORATORYCLIA [id number] [address] [place] Body temperature 98.78 [degF] Normal [facility] Comment on above: Order Comment: Specimen Type : ARTERIAL BLOOD SPECIMENOrdering Facility: [facility] Address: [address] [address] Performed By: #### ALLBG ### #[facility]ORATORYCLIA [id number] [facility] [place], [address] [place] Calcium.ionized (BldV) [Mass/Vol] 1.06 mmol/L Low 1.08-1. 30 [facility] Comment on above: Order Comment: Specimen Type : ARTERIAL BLOOD SPECIMENOrdering Facility: [facility] Address: [address] [address] Performed By: #### ALLBG ### #[facility]ATORYCLIA [id number] [place] [address] OF [facility] Calcium.ionized adjusted to pH 7.4 1.01 mmol/L Low 1.08-1 .30 [facility] (dA) [Moles/Vol] Flom Comment on above: Order Comment: Specimen Type : ARTERIAL BLOOD SPECIMENOrdering Facility: [facility] Address: [address] [place] [address] Performed By: #### ALLBG ### #[facility] LABORATORYCLIA [id number] [address] [place] Carboxyhemoglobin (BldA) [Mass 2.2 % High 0.0-2.0 [facility] fraction] Comment on above: Order Comment: Specimen Type : ARTERIAL BLOOD SPECIMENOrdering Facility: [facility] Address: [address] [place] [address] Result Comment: Carboxyhemog lobin Reference Range for Smokers: 2.0-8.0% Performed By: #### ALLBG ### #[facility] LABORATORYCLIA [id number] [address] [place] Chloride [Moles/Vol] 110 mmol/L High 102-109 [facility] Comment on above: Order Comment: Specimen Type : ARTERIAL BLOOD SPECIMENOrdering Facility: [facility] Address: [address] [place] [address] Performed By: #### ALLBG ### #[facility] LABORATORYCLIA [id number] [address] [place] CO2 (Bld) [Partial pressure] 47 mm Hg High 36-46 [facility] Comment on above: Order Comment: Specimen Type : ARTERIAL BLOOD SPECIMENOrdering Facility: [facility] Address: [address] [place] [address] Performed By: #### ALLBG ### #[facility] LABORATORYCLIA [id number] [address] [place] CO2 [Moles/Vol] 22 mmol/L Normal 22-28 [facility] Comment on above: Order Comment: Specimen Type : ARTERIAL BLOOD SPECIMENOrdering Facility: [facility] Address: [address] [address] Performed By: #### ALLBG ### #[facility]ORATORYCLIA [id number] [facility], [address] CO2 adjusted to patient's actual 47 mmHg High 36-46 [facility] temperature (Bld) [Partial pressure] Comment on above: Order Comment: Specimen Type : ARTERIAL BLOOD SPECIMENOrdering Facility: [facility] Address: [address] [address] Performed By: #### ALLBG ### #[facility]ORATORYCLIA [id number] [facility] [address] [place] Glucose [Mass/Vol] 162 mg/dL High 60-105 [facility] Comment on above: Order Comment: Specimen Type : ARTERIAL BLOOD SPECIMENOrdering Facility: [facility] Address: [address] [address] Performed By: #### ALLBG ### #[facility]ORATORYCLIA [id number] [facility], [address] HCO3 (Bld) [Moles/Vol] 23 mmol/L Normal 22-26 [facility] Comment on above: Order Comment: Specimen Type : ARTERIAL BLOOD SPECIMENOrdering Facility: [facility] Address: [address] [address] Performed By: #### ALLBG ### #[facility]ORATORYCLIA [id number] [facility], [address] [place] Hematocrit (Bld) [Volume fraction] 31.8 % Low 36.0-4 6.0 [facility] Comment on above: Order Comment: Specimen Type : ARTERIAL BLOOD SPECIMENOrdering Facility: [facility] Address: [address] [place] [address] Performed By: #### ALLBG ### #[facility]ORATORYCLIA [id number] [place] [address] [place] Hemoglobin (Bld) [Mass/Vol] 10.3 g/dL Low 11.5-15.5 [facility] Comment on above: Order Comment: Specimen Type : ARTERIAL BLOOD SPECIMENOrdering Facility: [facility] Address: [address] [address] Performed By: #### ALLBG ### #[facility]ORATORYCLIA [id number] [place] [address] [place] Lactate [Moles/Vol] 0.6 mmol/L Normal 0.5-2.2 [facility] Comment on above: Order Comment: Specimen Type : ARTERIAL BLOOD SPECIMENOrdering Facility: [facility] Address: [address] [address] Performed By: #### ALLBG ### #[facility] LABORATORYCLIA [id number] [facility], [address] [place] Methemoglobin (Bld) [Mass fraction] 1.1 % Normal 0.0-1 .5 [facility] Comment on above: Order Comment: Specimen Type : ARTERIAL BLOOD SPECIMENOrdering Facility: [facility] Address: [address] [address] Performed By: #### ALLBG ### #[facility] LABORATORYCLIA [id number] [facility], [facility] [place] O2 THERAPY Ventilator Normal [facility] Comment on above: Order Comment: Specimen Type : ARTERIAL BLOOD SPECIMENOrdering Facility: [facility] Address: [address] [address] Performed By: #### ALLBG ### #[facility]ATORYCLIA [id number] [facility] [place], [address] [place] Oxygen (Bld) [Partial pressure] 136 mm Hg High 85-95 [facility] Comment on above: Order Comment: Specimen Type : ARTERIAL BLOOD SPECIMENOrdering Facility: [facility] Address: [address] [address] Performed By: #### ALLBG ### #[facility]ORATORYCLIA [id number] [place] [address] [facility] [place] Oxygen adjusted to patient's actual 137 mmHg High 85-95 [facility] temperature (Bld) [Partial pressure] Comment on above: Order Comment: Specimen Type : ARTERIAL BLOOD SPECIMENOrdering Facility: [facility] Address: [address] [place] [address] Performed By: #### ALLBG ### #[facility]ORATORYCLIA [id number] [place] [address] [facility] Oxyhemoglobin (BldA) [Mass fraction] 95 % Normal 95-9 8 [facility] Comment on above: Order Comment: Specimen Type : ARTERIAL BLOOD SPECIMENOrdering Facility: [facility] Address: [address] [place] [address] Performed By: #### ALLBG ### #[facility]ORATORYCLIA [id number] [facility] [place], [facility] [place] pH (Bld) 7.32 [pH] Low 7.35-7.45 [facility] Comment on above: Order Comment: Specimen Type : ARTERIAL BLOOD SPECIMENOrdering Facility: [facility] Address: [address] [place] [address] Performed By: #### ALLBG ### #[facility]ORATORYCLIA [id number] [place] [address] [facility] [place] pH adjusted to patient's actual 7.32 Low 7.35-7.45 [facility] temperature (Bld) Comment on above: Order Comment: Specimen Type : ARTERIAL BLOOD SPECIMENOrdering Facility: [facility] Address: [address] [place] [address] Performed By: #### ALLBG ### #[facility]ORATORYCLIA [id number] [place] [address] [facility] [place] Potassium [Moles/Vol] 4.3 mmol/L Normal 3.5-5.0 [facility] Comment on above: Order Comment: Specimen Type : ARTERIAL BLOOD SPECIMENOrdering Facility: [facility] Address: [address] [address] Performed By: #### ALLBG ### #[facility]ORATORYCLIA [id number] [facility] [address] [place] Sodium [Moles/Vol] 135 mmol/L Low 136-144 [facility] Comment on above: Order Comment: Specimen Type : ARTERIAL BLOOD SPECIMENOrdering Facility: [facility] Address: [address] [address] Performed By: #### ALLBG ### #[facility]ORATORYCLIA [id number] [facility] [address] [place] Base deficit (BldA) [Moles/Vol] -1 mmol/L Normal -2-0 [facility] Comment on above: Order Comment: Specimen Type : ARTERIAL BLOOD SPECIMENOrdering Facility: [facility] Address: [address] [address] Performed By: #### ALLBG ### #[facility]ORATORYCLIA [id number] [address] [place] Body temperature 97.52 [degF] Normal [facility] Comment on above: Order Comment: Specimen Type : ARTERIAL BLOOD SPECIMENOrdering Facility: [facility] Address: [address] [address] Performed By: #### ALLBG ### #[facility]ORATORYCLIA [id number] [facility], [address] [place] Calcium.ionized (BldV) 1.18 mmol/L Normal 1.08-1.30 [facility] [Mass/Vol] Flom Comment on above: Order Comment: Specimen Type : ARTERIAL BLOOD SPECIMENOrdering Facility: [facility] Address: [address] [address] Performed By: #### ALLBG ### #[facility]ORATORYCLIA [id number] [address] [place] Calcium.ionized adjusted to pH 1.08 mmol/L Normal 1.08-1.30 [facility] 7.4 (BldA) [Moles/Vol] Genoveva burciaga Comment on above: Order Comment: Specimen Type : ARTERIAL BLOOD SPECIMENOrdering Facility: [facility] Address: [address] [address] Performed By: #### ALLBG ### #[facility] LABORATORYCLIA [id number] [address] OF [facility] Carboxyhemoglobin (BldA) [Mass 3.0 % High 0.0-2.0 [facility] fraction] Comment on above: Order Comment: Specimen Type : ARTERIAL BLOOD SPECIMENOrdering Facility: [facility] Address: [address] [place] [address] Result Comment: Carboxyhemog lobin Reference Range for Smokers: 2.0-8.0% Performed By: #### ALLBG ### #[facility]ORATORYCLIA [id number] [address] STATES OF [facility] Chloride [Moles/Vol] 104 mmol/L Normal 102-109 [facility] Comment on above: Order Comment: Specimen Type : ARTERIAL BLOOD SPECIMENOrdering Facility: [facility] [facility] Address: [address] [place] [address] Performed By: #### ALLBG ### #[facility] LABORATORYCLIA [id number] [address] OF [place] CO2 (Bld) [Partial pressure] 63 mm Hg High 36-46 [facility] Comment on above: Order Comment: Specimen Type : ARTERIAL BLOOD SPECIMENOrdering Facility: [facility] Address: [address] [address] Performed By: #### ALLBG ### #[facility] LABORATORYCLIA [id number] [address] OF [facility] CO2 [Moles/Vol] 25 mmol/L Normal 22-28 [facility] Comment on above: Order Comment: Specimen Type : ARTERIAL BLOOD SPECIMENOrdering Facility: [facility] Address: [address] [address] Performed By: #### ALLBG ### #[facility]ORATORYCLIA [id number] [facility] [address] CO2 adjusted to patient's actual 61 mmHg High 36-46 [facility] temperature (Bld) [Partial pressure] Comment on above: Order Comment: Specimen Type : ARTERIAL BLOOD SPECIMENOrdering Facility: [facility] Address: [address] [address] Performed By: #### ALLBG ### #[facility] LABORATORYCLIA [id number] [facility] [address] [place] FIO2 80 % Normal [facility] Comment on above: Order Comment: Specimen Type : ARTERIAL BLOOD SPECIMENOrdering Facility: [facility] Address: [address] [address] Performed By: #### ALLBG ### #[facility] LABORATORYCLIA [id number] [facility] [address] [place] Glucose [Mass/Vol] 162 mg/dL High 60-105 [facility] Comment on above: Order Comment: Specimen Type : ARTERIAL BLOOD SPECIMENOrdering Facility: [facility] Address: [address] [address] Performed By: #### ALLBG ### #[facility] LABORATORYCLIA [id number] [facility] [address] HCO3 (Bld) [Moles/Vol] 26 mmol/L Normal 22-26 [facility] Comment on above: Order Comment: Specimen Type : ARTERIAL BLOOD SPECIMENOrdering Facility: [facility] Address: [address] [address] Performed By: #### ALLBG ### #[facility] LABORATORYCLIA [id number] [address] [place] Hematocrit (Bld) [Volume fraction] 29.1 % Low 36.0-4 6.0 [facility] Comment on above: Order Comment: Specimen Type : ARTERIAL BLOOD SPECIMENOrdering Facility: [facility] Address: [address] [address] Performed By: #### ALLBG ### #[facility] LABORATORYCLIA [id number] [facility] [place], [facility] [place] Hemoglobin (Bld) [Mass/Vol] 9.4 g/dL Low 11.5-15.5 [facility] Comment on above: Order Comment: Specimen Type : ARTERIAL BLOOD SPECIMENOrdering Facility: [facility] Address: [address] [address] Performed By: #### ALLBG ### #[facility] LABORATORYCLIA [id number] [facility] [place], [address] [place] Lactate [Moles/Vol] 0.5 mmol/L Normal 0.5-2.2 [facility] Comment on above: Order Comment: Specimen Type : ARTERIAL BLOOD SPECIMENOrdering Facility: [facility] Address: [address] [address] Performed By: #### ALLBG ### #[facility] LABORATORYCLIA [id number] [facility] [place], [address] [place] Methemoglobin (Bld) [Mass fraction] 1.1 % Normal 0.0-1 .5 [facility] Comment on above: Order Comment: Specimen Type : ARTERIAL BLOOD SPECIMENOrdering Facility: [facility] Address: [address] [address] Performed By: #### ALLBG ### #[facility] LABORATORYCLIA [id number] [place] [address] [place] O2 THERAPY Ventilator Normal [facility] Comment on above: Order Comment: Specimen Type : ARTERIAL BLOOD SPECIMENOrdering Facility: [facility] Address: [address] [address] Performed By: #### ALLBG ### #[facility] LABORATORYCLIA [id number] [place] [address] [facility] [place] Oxygen (Bld) [Partial pressure] 91 mm Hg Normal 85-95 [facility] Comment on above: Order Comment: Specimen Type : ARTERIAL BLOOD SPECIMENOrdering Facility: [facility] Address: [address] [address] Performed By: #### ALLBG ### #[facility] LABORATORYCLIA [id number] [place] [address] [facility] [place] Oxygen adjusted to patient's actual 88 mmHg Normal 85-95 [facility] temperature (Bld) [Partial pressure] Comment on above: Order Comment: Specimen Type : ARTERIAL BLOOD SPECIMENOrdering Facility: [facility] Address: [address] [address] Performed By: #### ALLBG ### #[facility] LABORATORYCLIA [id number] [place] [address] [facility] [place] Oxyhemoglobin (BldA) [Mass fraction] 92 % Low 95-9 8 [facility] Comment on above: Order Comment: Specimen Type : ARTERIAL BLOOD SPECIMENOrdering Facility: [facility] Address: [address] [address] Performed By: #### ALLBG ### #[facility] LABORATORYCLIA [id number] [facility] [place], [facility] [place] PEEP/CPAP 10 cmH2O Normal [facility] Comment on above: Order Comment: Specimen Type : ARTERIAL BLOOD SPECIMENOrdering Facility: [facility] Address: [address] [address] Performed By: #### ALLBG ### #[facility]ORATORYCLIA [id number] [place] [address] [place] pH (Bld) 7.24 [pH] Low 7.35-7.45 [facility] Comment on above: Order Comment: Specimen Type : ARTERIAL BLOOD SPECIMENOrdering Facility: [facility] Address: [address] [address] Performed By: #### ALLBG ### #[facility] LABORATORYCLIA [id number] [facility] [place], [address] pH adjusted to patient's actual 7.25 Low 7.35-7.45 [facility] temperature (Bld) Comment on above: Order Comment: Specimen Type : ARTERIAL BLOOD SPECIMENOrdering Facility: [facility] Address: [address] [place] [address] Performed By: #### ALLBG ### #[facility]ORATORYCLIA [id number] [facility], [address] Potassium [Moles/Vol] 4.9 mmol/L Normal 3.5-5.0 [facility] Comment on above: Order Comment: Specimen Type : ARTERIAL BLOOD SPECIMENOrdering Facility: [facility] Address: [address] [place] [address] Performed By: #### ALLBG ### #[facility] LABORATORYCLIA [id number] [facility], [address] SET VENTILATOR RESPIRATORY RATE (BPM) 16 BPM Normal [facility] Comment on above: Order Comment: Specimen Type : ARTERIAL BLOOD SPECIMENOrdering Facility: [facility] Address: [address] [address] Performed By: #### ALLBG ### #[facility] LABORATORYCLIA [id number] [facility], [address] [place] Sodium [Moles/Vol] 134 mmol/L Low 136-144 [facility] Comment on above: Order Comment: Specimen Type : ARTERIAL BLOOD SPECIMENOrdering Facility: [facility] Address: [address] [address] Performed By: #### ALLBG ### #[facility] LABORATORYCLIA [id number] [facility], [address] Bacteria Bld Cult on 12-25-2022 Bacteria identified Cx Nom CULTURE, BLOOD: Normal [facility] (Bld) No growth 5 days Center Comment on above: Performed By: #### 600-7 ### #[facility]ORATORYCLIA [id number] [address] OF [facility] Bacteria identified Cx Nom CULTURE, BLOOD: Normal [facility] (Bld) No growth 5 days Center Comment on above: Performed By: #### 600-7 ### #[facility] LABORATORYCLIA [id number] [address] OF [facility] Bacteria Spec Anaerobe Cult on 12-25-19 23 Bacteria identified Anaer CULTURE, ANAEROBE: Normal [facility] cx Nom (Unsp spec) Moderate mixed anaerobic yolanda ra. No Bacteroides fragilis group isolated. No Clostridium perfringens isolated. Center Comment on above: Performed By: #### 01484-9, 83926-0, 635-3 ####[facility] LABORATORYCLIA [id number] [address] OF [place] Bacteria Tiss Cult on 12-25-2022 Bacteria identified Cx ORGANISM ID: 1 Abnormal Akr on General Nom (Tiss) Few Streptococcus anginosus [facility] ORGANISM ID: 2 Rare skin nando GRAM STAIN: Few Gram positive cocci Rare Gram negative bacilli No Polymorphonuclear Leukocytes Comment on above: Performed By: #### 96477-0, 66430-7, 635-3 ####[facility] LABORATORYCLIA [id number] [address] OF [place] Basic metabolic 2000 panel on 3 Anion gap [Moles/Vol] 11 mmol/L Normal 9-18 [facility] Comment on above: Order Comment: Specimen Type : BLOOD SPECIMENOrdering Facility: [facility] Address: [address] [address] Performed By: #### 93261-5 # ###[facility] LABORATORYCLIA [id number] [address] STATES OF [facility] Calcium [Mass/Vol] 8.3 mg/dL Low 8.5-10.2 [facility] Comment on above: Order Comment: Specimen Type : BLOOD SPECIMENOrdering Facility: [facility] Address: [address] [address] Performed By: #### 57350-6 # ###[facility] LABORATORYCLIA [id number] [facility], [address] [place] Chloride [Moles/Vol] 100 mmol/L Normal 97-105 [facility] Comment on above: Order Comment: Specimen Type : BLOOD SPECIMENOrdering Facility: [facility] Address: [address] [address] Performed By: #### 49248-5 # ###[facility] LABORATORYIA [id number] [address] [place] CO2 [Moles/Vol] 26 mmol/L Normal 22-30 [facility] Comment on above: Order Comment: Specimen Type : BLOOD SPECIMENOrdering Facility: [facility] Address: [address] [address] Performed By: #### 49242-7 # ###[facility] HUNTINGBURGIA [id number] [address] [place] Creatinine [Mass/Vol] 1.69 mg/dL High 0.58-0.96 [facility] Comment on above: Order Comment: Specimen Type : BLOOD SPECIMENOrdering Facility: [facility] Address: [address] [place] [address] Performed By: #### 66030-3 # ###[facility] LABORATORYIA [id number] [address] [place] ESTIMATED GLOMERULAR 38 mL/min/1.73m??? Low >=60 [facility] FILTRATION RATE Center Comment on above: Order Comment: Specimen Type : BLOOD SPECIMENOrdering Facility: [facility] Address: [address] [address] Result Comment: Estimated Gl omerular Filtration Rate [...] accurately reflect actual GFR. Performed By: #### 70574-4 # ###[facility] LABORATORYCLIA [id number] [place] [address] [place] Glucose [Mass/Vol] 123 mg/dL High 74-99 [facility] Comment on above: Order Comment: Specimen Type : BLOOD SPECIMENOrdering Facility: [facility] Address: [address] [address] Result Comment: The [place] Diabetes Association (ADA) provides guidance for cutoff [...] Standards of Medical Care in Diabetes 2016, [facility] [place] [facility] Diabetes Association. Diabetes Care. 2016.39(Suppl 1). Performed By: #### 71572-5 # ###[facility] LABORATORYCLIA [id number] [place] [address] [place] Potassium [Moles/Vol] 5.1 mmol/L Normal 3.7-5.1 [facility] Comment on above: Order Comment: Specimen Type : BLOOD SPECIMENOrdering Facility: [facility] Address: [address] [address] Performed By: #### 44703-5 # ###[facility] LABORATORYCLIA [id number] [place] [address] [place] Sodium [Moles/Vol] 137 mmol/L Normal 136-144 [facility] Comment on above: Order Comment: Specimen Type : BLOOD SPECIMENOrdering Facility: [facility] Address: [address] [address] Performed By: #### 51111-0 # ###[facility] LABORATORYCLIA [id number] [place] [address] [place] Urea nitrogen [Mass/Vol] 30 mg/dL High 7-21 [facility] Comment on above: Order Comment: Specimen Type : BLOOD SPECIMENOrdering Facility: [facility] Address: [address] [place] [address] Performed By: #### 64886-9 # ###[facility]ORATORYCLIA [id number] [place] [address] [place] Anion gap [Moles/Vol] 10 mmol/L Normal 9-18 [facility] Comment on above: Order Comment: Specimen Type : BLOOD SPECIMENOrdering Facility: [facility] Address: [address] [address] Performed By: #### 44255-3 # ###[facility]ORATORYCLIA [id number] [place] [address] [place] Calcium [Mass/Vol] 8.6 mg/dL Normal 8.5-10.2 [facility] Comment on above: Order Comment: Specimen Type : BLOOD SPECIMENOrdering Facility: [facility] Address: [address] [address] Performed By: #### 82722-3 # ###[facility]ORATORYCLIA [id number] [place] [address] [place] Chloride [Moles/Vol] 101 mmol/L Normal 97-105 [facility] Comment on above: Order Comment: Specimen Type : BLOOD SPECIMENOrdering Facility: [facility] Address: [address] [address] Performed By: #### 36940-5 # ###[facility]ORATORYCLIA [id number] [place] [address] [place] CO2 [Moles/Vol] 26 mmol/L Normal 22-30 [facility] Comment on above: Order Comment: Specimen Type : BLOOD SPECIMENOrdering Facility: [facility] Address: [address] [address] Performed By: #### 07545-0 # ###[facility]ORATORYCLIA [id number] [address] [id number] [place] Creatinine [Mass/Vol] 1.52 mg/dL High 0.58-0.96 [facility] Comment on above: Order Comment: Specimen Type : BLOOD SPECIMENOrdering Facility: [facility] Address: [address] [address] Performed By: #### 21855-3 # ###[facility]BURGIA [id number] [address] [id number] [place] ESTIMATED GLOMERULAR 43 mL/min/1.73m??? Low >=60 [facility] FILTRATION RATE Center Comment on above: Order Comment: Specimen Type : BLOOD SPECIMENOrdering Facility: [facility] Address: [address] [place] [address] Result Comment: Estimated Gl omerular Filtration Rate [...] accurately reflect actual GFR. Performed By: #### 16748-8 # ###[facility] [id number] [address] [id number] [place] Glucose [Mass/Vol] 92 mg/dL Normal 74-99 [facility] Comment on above: Order Comment: Specimen Type : BLOOD SPECIMENOrdering Facility: [facility] Address: [address] [place] [address] Result Comment: The [place] Diabetes Association (ADA) provides guidance for cutoff [...] Standards of Medical Care in Diabetes 2016, [facility] Diabetes Association. Diabetes Care. 2016.39(Suppl 1). Performed By: #### 71664-8 # ###[facility] LABORATORYCLIA [id number] [address] STATES OF [facility] Potassium [Moles/Vol] 4.9 mmol/L Normal 3.7-5.1 [facility] Comment on above: Order Comment: Specimen Type : BLOOD SPECIMENOrdering Facility: [facility] Address: [address] [address] Performed By: #### 42557-1 # ###[facility]PITALCLIA [id number] [address] STATES OF [facility] Sodium [Moles/Vol] 137 mmol/L Normal 136-144 [facility] Comment on above: Order Comment: Specimen Type : BLOOD SPECIMENOrdering Facility: [facility] Address: [address] [address] Performed By: #### 99195-0 # ###[facility] HOSPITALCLIA [id number] [address] [place] Urea nitrogen [Mass/Vol] 29 mg/dL High 7-21 [facility] Comment on above: Order Comment: Specimen Type : BLOOD SPECIMENOrdering Facility: [facility] Address: [address] [address] Performed By: #### 32485-4 # ###[facility] LABORATORYCLIA [id number] [address] [place] CBC panel Auto (Bld) on 12-25-2022 Erythrocyte distribution width 16.6 % High 11.5-15.0 [facility] (RBC) [Ratio] Comment on above: Order Comment: Specimen Type : BLOOD SPECIMENOrdering Facility: [facility] Address: [address] [address] Performed By: #### 13257-6 # ###[facility]ORATORYCLIA [id number] [facility], [address] [place] Hematocrit (Bld) [Volume fraction] 32.5 % Low 36.0-4 6.0 [facility] Comment on above: Order Comment: Specimen Type : BLOOD SPECIMENOrdering Facility: [facility] Address: [address] [place] [address] Performed By: #### 93018-5 # ###[facility] LABORATORYCLIA [id number] [facility], [address] OF [facility] Hemoglobin (Bld) [Mass/Vol] 9.7 g/dL Low 11.5-15.5 [facility] Comment on above: Order Comment: Specimen Type : BLOOD SPECIMENOrdering Facility: [facility] Address: [address] [place] [address] Performed By: #### 73676-2 # ###[facility] LABORATORYCLIA [id number] [address] [place] MCH (RBC) [Entitic mass] 29.2 pg Normal 26.0-34.0 [facility] Comment on above: Order Comment: Specimen Type : BLOOD SPECIMENOrdering Facility: [facility] Address: [address] [place] [address] Performed By: #### 24117-2 # ###[facility] LABORATORYCLIA [id number] [address] [place] MCHC (RBC) [Mass/Vol] 29.8 g/dL Low 30.5-36.0 [facility] Comment on above: Order Comment: Specimen Type : BLOOD SPECIMENOrdering Facility: [facility] Address: [address] [place] [address] Performed By: #### 55120-9 # ###[facility] LABORATORYCLIA [id number] [address] [place] MCV (RBC) [Entitic vol] 97.9 fL Normal 80.0-100.0 [facility] Comment on above: Order Comment: Specimen Type : BLOOD SPECIMENOrdering Facility: [facility] Address: [address] [address] Performed By: #### 61939-5 # ###[facility] LABORATORYCLIA [id number] [facility] [place] [address] [place] Nucleated RBC (Bld) [#/Vol] 0.03 10*3/uL High <0.01 [facility] Comment on above: Order Comment: Specimen Type : BLOOD SPECIMENOrdering Facility: [facility] Address: [address] [address] Performed By: #### 81667-1 # ###[facility] LABORATORYCLIA [id number] [facility] [place], [facility] Platelet mean volume (Bld) 9.5 fL Normal 9.0-12.7 [facility] [Entitic vol] Comment on above: Order Comment: Specimen Type : BLOOD SPECIMENOrdering Facility: [facility] Address: [address] [address] Performed By: #### 42722-8 # ###[facility] LABORATORYCLIA [id number] [facility] [place], [place] [id number] [place] [address] [place] Platelets (Bld) [#/Vol] 323 10*3/uL Normal 150-400 [facility] Comment on above: Order Comment: Specimen Type : BLOOD SPECIMENOrdering Facility: [facility] Address: [address] Performed By: #### 33018-5 # ###[facility] LABORATORYCLIA [id number] [facility] [place] [address] [place] [address] [place] RBC (Bld) [#/Vol] 3.32 10*6/uL Low 3.90-5.20 [facility] Comment on above: Order Comment: Specimen Type : BLOOD SPECIMENOrdering Facility: [facility] Address: [address] Performed By: #### 67684-6 # ###[facility] LABORATORYCLIA [id number] [facility] [address] [place] WBC (Bld) [#/Vol] 19.06 10*3/uL High 3.70-11.00 [facility] Comment on above: Order Comment: Specimen Type : BLOOD SPECIMENOrdering Facility: [facility] Address: [address] [place] [address] Performed By: #### 74592-2 # ###[facility] LABORATORYCLIA [id number] [address] OF [facility] Erythrocyte distribution width 16.5 % High 11.5-15.0 [facility] (RBC) [Ratio] Comment on above: Order Comment: Specimen Type : BLOOD SPECIMENOrdering Facility: [facility] Address: [address] [place] [address] Performed By: #### 88005-3 # ###[facility] LABORATORYCLIA [id number] [address] Hematocrit (Bld) [Volume fraction] 32.4 % Low 36.0-4 6.0 [facility] Comment on above: Order Comment: Specimen Type : BLOOD SPECIMENOrdering Facility: [facility] Address: [address] [place] [address] Performed By: #### 21444-5 # ###[facility] LABORATORYCLIA [id number] [address] OF [facility] Hemoglobin (Bld) [Mass/Vol] 9.4 g/dL Low 11.5-15.5 [facility] Comment on above: Order Comment: Specimen Type : BLOOD SPECIMENOrdering Facility: [facility] Address: [address] [place] [address] Performed By: #### 39742-3 # ###[facility] LABORATORYCLIA [id number] [address] MCH (RBC) [Entitic mass] 28.2 pg Normal 26.0-34.0 [facility] Comment on above: Order Comment: Specimen Type : BLOOD SPECIMENOrdering Facility: [facility] Address: [address] [address] Performed By: #### 84159-0 # ###[facility] LABORATORYCLIA [id number] [facility] MCHC (RBC) [Mass/Vol] 29.0 g/dL Low 30.5-36.0 [facility] Comment on above: Order Comment: Specimen Type : BLOOD SPECIMENOrdering Facility: [facility] Address: [address] [address] Performed By: #### 39810-7 # ###[facility] LABORATORYCLIA [id number] [facility] ENSELECT [facility]ICAL [facility] - DUBLINRON[address] MCV (RBC) [Entitic vol] 97.3 fL Normal 80.0-100.0 [facility] Comment on above: Order Comment: Specimen Type : BLOOD SPECIMENOrdering Facility: [facility] Address: [address] [address] Performed By: #### 47081-5 # ###[facility] LABORATORYCLIA [id number] [address] Nucleated RBC (Bld) [#/Vol] 10*3/uL Normal <0.01 [facility] Comment on above: Order Comment: Specimen Type : BLOOD SPECIMENOrdering Facility: [facility] Address: [address] [address] Performed By: #### 77712-0 # ###[facility] LABORATORYCLIA [id number] [facility], [address] Platelet mean volume (Bld) 9.7 fL Normal 9.0-12.7 [facility] [Entitic vol] Comment on above: Order Comment: Specimen Type : BLOOD SPECIMENOrdering Facility: [facility] Address: [address] [address] Performed By: #### 81085-9 # ###[facility] LABORATORYCLIA [id number] [facility] [place], [address] Platelets (Bld) [#/Vol] 308 10*3/uL Normal 150-400 [facility] Comment on above: Order Comment: Specimen Type : BLOOD SPECIMENOrdering Facility: [facility] Address: [address] [place] [address] Performed By: #### 42969-3 # ###[facility] LABORATORYCLIA [id number] [facility] [place] [address] [place] RBC (Bld) [#/Vol] 3.33 10*6/uL Low 3.90-5.20 [facility] Comment on above: Order Comment: Specimen Type : BLOOD SPECIMENOrdering Facility: [facility] Address: [address] [address] Performed By: #### 76692-0 # ###[facility] LABORATORYCLIA [id number] [facility] [place] [address] [place] WBC (Bld) [#/Vol] 17.43 10*3/uL High 3.70-11.00 [facility] Comment on above: Order Comment: Specimen Type : BLOOD SPECIMENOrdering Facility: [facility] Address: [address] [address] Performed By: #### 07298-1 # ###[facility] LABORATORYCLIA [id number] [facility] [place] [address] [facility] [place] CNCRITCR on 12-25-2022 CNCRITCR Normal [facility] CONSULT PROG on 12-25-2022 CONSULT PROG Normal [facility] CONSULT PROG Normal [facility] CONSULT PROG Normal [facility] ECG COMPLETE on 12-25-2022 ECG COMPLETE Normal [facility] ED NOTE on 12-25-2022 ED NOTE HNO ID: [id number] [facility] Author: Claire Sanchez RN Service: Emergency Medicine Author Type: Registered Nurse Type: ED Notes Filed: 12/25/2022 3:16 AM Note Text: Depart to OR ED NOTE HNO ID: [id number] Normal [facility] Author: Claire Sanchez RN Service: Emergency Medicine Author Type: Registered Nurse Type: ED Notes Filed: 12/25/2022 2:39 AM Note Text: Dr. Reyes at bedside to evaluate pt ED NOTE HNO ID: [id number] [facility] Author: Claire Sanchez RN Service: Emergency Medicine Author Type: Registered Nurse Type: ED Notes Filed: 12/25/2022 2:29 AM Note Text: EKG performed at bedside ED NOTE HNO ID: [id number] [facility] Author: Claire Sanchez RN Service: Emergency Medicine Author Type: Registered Nurse Type: ED Notes Filed: 12/25/2022 2:28 AM Note Text: ED NOTE HNO ID: [id number] [facility] Author: Claire Sanchez RN Service: Emergency Medicine Author Type: Registered Nurse Type: ED Notes Filed: 12/25/2022 2:29 AM Note Text: Surgery at bedside ED NOTE Normal [facility] ED NOTE HNO ID: [id number] [facility] Author: Claire Sanchez RN Service: Emergency Medicine Author Type: Registered Nurse Type: ED Notes Filed: 12/25/2022 1:56 AM Note Text: Dr. Saleh at bedside to evaluate pt ED NOTE HNO ID: [id number] [facility] Author: Sirena Redman RN Service: ? Author Type: Registered Nurse Type: ED Notes Filed: 12/25/2022 1:44 AM Note Text: Bed: 01-ED Expected date: Expected time: Means of arrival: Comments: Inguinal issue ED PROV NOTE on 12-25-2022 ED PROV NOTE Normal [facility] FLUABV+SARS-CoV-2+RSV Pnl Resp SURESH+probe on 12-25-2022 FLUABV+SARS-CoV-2+RSV Pnl Resp SURESH+probe Normal [facility] Comment on above: Performed By: #### 65925-1 # ###[facility] LABORATORYCLIA [id number] [place] [address] [facility] HIGH SENSITIVITY TROPONIN T on 12-25-19 23 HIGH SENSITIVITY CATERINA 23 ng/L High <12 [facility] Comment on above: Order Comment: Specimen Type : BLOOD SPECIMENOrdering Facility: [facility] Address: [address] [place] [address] Result Comment: When assessi ng risk for [...] MAC E. Performed By: #### HSTNT ### #[facility] LABORATORYCLIA [id number] [address] HIGH SENSITIVITY CATERINA 34 ng/L High <12 [facility] Comment on above: Order Comment: Specimen Type : BLOOD SPECIMENOrdering Facility: [facility] Address: [address] [place] [address] Result Comment: When assessi ng risk for [...] MAC E. Performed By: #### HSTNT ### #[facility] LABORATORYCLIA [id number] [address] HISTORY PHYSICAL on 12-25-2022 HISTORY PHYSICAL Normal [facility] Lactate (Bld) [Moles/Vol] on 12-25-2022 Lactate [Moles/Vol] 0.8 mmol/L Normal 0.5-2.2 [facility] Comment on above: Order Comment: Specimen Type : BLOOD SPECIMENOrdering Facility: [facility] Address: [address] [place] [address] Performed By: #### 72420-2 # ###[facility] LABORATORYCLIA [id number] [address] Microorganism Spec Cult on 12-25-2022 Microorganism identified Cx CULTURE, FUNGAL: Normal [facility] (Unsp spec) No Fungus isolated after 28 days Center FUNGAL SMEAR: No fungus seen Comment on above: Performed By: #### 63561-1, 55495-8, 635-3 ####[facility] LABORATORYCLIA [id number] [place] [address] [facility] Microorganism identified Cx CULTURE, AFB: Normal [facility] (Unsp spec) No Acid Fast Bacilli isolated after 42 days Center AFB STAIN: No acid fast bacilli seen by flurochrome stain Comment on above: Performed By: #### 12518-6, 33258-8, 635-3 ####[facility] LABORATORYCLIA [id number] [place] [address] [facility] NUTRITION on 12-25-2022 NUTRITION Normal [facility] OPERATIVE NO on 12-25-2022 OPERATIVE NO Normal [facility] PT panel Coag (PPP) on 12-25-2022 INR Coag (PPP) [Relative time] 1.1 {INR} Normal 0.9-1.3 [facility] Comment on above: Order Comment: Specimen Type : BLOOD SPECIMENOrdering Facility: [facility] Address: [address] [place] [phone] Result Comment: Vitamin K An tagonist (VKA) [...] al. Chest 2012, 141:7S-47SNishimdarlene RA, et al. [facility] 2017, 70: 25 2-289 Performed By: #### 38402-2 # ###[facility] LABORATORYCLIA [id number] [address] [place] PT Coag (PPP) [Time] 11.6 s Normal 9.7-13.0 [facility] Comment on above: Order Comment: Specimen Type : BLOOD SPECIMENOrdering Facility: [facility] Address: [address] [place] [address] Performed By: #### 76811-5 # ###[facility] LABORATORYIA [id number] [address] STAPH AUREUS PCR on 12-25-2022 S. aureus and MRSA panel SURESH+probe Abnormal Negati ve [facility] (Nose) Comment on above: Order Comment: Specimen Type : SWAB OF INTERNAL NOSEOrdering Facility: [facility] Address: [address] [place] [address] Result Comment: Positive for Staphylococcus aureus by PCR.Positive for MRSA by PCR Performed By: #### SAPCR ### #[facility] [id number] [address] SURGICAL PATHOLOGY on 12-25-2022 CASE REPORT Normal [facility] Comment on above: Order Comment: Specimen Type : TISSUE SPECIMENOrdering Facility: [facility] Address: [address] [place] [address] Result Comment: Surgical Pat hology Report Case: [id number] Provi mame: Hubert Lelbanc MD Collected: 12/25/2022 04:15 AMOrdering Location: [place] [facility] [place] Received: 12/25/2022 08:[address]: Eran Melgar, DOSpecimen: DEBRIDEMENT, LEFT GROIN WOUN D Performed By: #### S ####[facility] LABORATORYCLIA [id number] [facility], [address] CLINICAL HISTORY Normal [facility] Comment on above: Order Comment: Specimen Type : TISSUE SPECIMENOrdering Facility: [facility] Address: [address] [place] [address] Result Comment: Pre-op diagn osis:Necrotizing soft tissue infection [M79.89] Performed By: #### S ####[facility]ORATORYCLIA [id number] [address] DIAGNOSIS COMMENT Correlation with microbiologic Normal [facility] studies is necessary. Center Comment on above: Order Comment: Specimen Type : TISSUE SPECIMENOrdering Facility: [facility] Address: [address] [place] [address] Performed By: #### S ####[facility]ORATORYCLIA [id number] [address] FINAL DIAGNOSIS Normal [facility] Comment on above: Order Comment: Specimen Type : TISSUE SPECIMENOrdering Facility: [facility] Address: [address] [place] [address] Result Comment: A. Left groi n wound, debridement:- Skin and soft tissue with suppurative acut e inflammation and focal gangrenous necrosis. See comment.Electr onically signed by Eran Melgar DO on 12/30/2022 at 9:18 AM Performed By: #### S ####[facility]ORATORYCLIA [id number] [address] FINAL PERFORMING LAB Normal [facility] Comment on above: Order Comment: Specimen Type : TISSUE SPECIMENOrdering Facility: [facility] Address: [address] [place] [address] Result Comment: Diagnostic i nterpretation performed at [facility], [address] [place] [address] CLIA# [id number] oratory Director: Faraz Sawant M.D. Performed By: #### S ####[facility]ORATORYCLIA [id number] [address] GROSS DESCRIPTION A. DEBRIDEMENT Normal [facility] Comment on above: Order Comment: Specimen Type : TISSUE SPECIMENOrdering Facility: [facility] Address: [address] [place] [address] Result Comment: A. Received in formalin labeled left groin wound are multiple brennan-pink to brennan -green rubbery and ischemic appearing segments of tissue aggregati ng to 15.0 x 7.8 x 3.5 cm. Multiple segments of skin are present and display a xei-qavq-baw to pink-green ischemic appearan ce. Community Organizer sections are submitted in formalin in 3 c assettes. Gross examination performed at [facility], [address] [place], [place] [address]YOZ J anuary 2022 11:27 AM Performed By: #### S ####[facility] LABORATORYCLIA [id number] [facility] [address] [facility] TYPE + SCREEN on 12-25-2022 ABO O Normal [facility] Comment on above: Order Comment: Specimen Type : BLOOD SPECIMENOrdering Facility: [facility] Address: [address] [place] [address] Performed By: #### TSCR #### [facility] BLOOD BANKCLIA [id number] [address] HISTORICAL AB SCR STATUS Negative Normal [facility] Comment on above: Order Comment: Specimen Type : BLOOD SPECIMENOrdering Facility: [facility] Address: [address] [place] [address] Performed By: #### TSCR #### [facility] BLOOD BANKCLIA [id number] [address] Rh Nom (Bld) Negative Normal [facility] Comment on above: Order Comment: Specimen Type : BLOOD SPECIMENOrdering Facility: [facility] Address: [address] [place] [address] Performed By: #### TSCR #### [facility] BLOOD BANKCLIA [id number] [address] [id number] [facility] TYPE AND SCREEN EXPIRATION 12/28/2022 23:59 Normal [facility] Comment on above: Order Comment: Specimen Type : BLOOD SPECIMENOrdering Facility: [facility] Address: [address] [address] Performed By: #### TSCR #### [facility] BLOOD BANKCLIA [id number] [place] [address] [place] XR CHEST 1V FRONTAL on 12-25-2022 XR CHEST 1V FRONTAL Normal [facility] XR CHEST 1V FRONTAL Normal [facility] CNPN on 12-24-2022 CNPN Normal [facility] CNPN on 12-20-2022 CNPN Normal [facility] CNPN on 12-12-2022 CNPN Normal [facility] CNPN on 12-05-2022 CNPN Normal [facility] 25(OH)D3 SerPl-mCnc on 11-11-2022 25-hydroxyvitamin D3 [Mass/Vol] 33.1 ng/mL Normal 31.0-80.0 [facility] Comment on above: Order Comment: Specimen Type : BLOOD SPECIMENOrdering Facility: [facility] Address: [address] [id number] Result Comment: Classificati on of 25 [place] Vitamin D status:Deficiency/Insufficie ncy: < or = 30 ng/ml.Sufficiency/Optimal Le vels: 31-80 ng/mLToxicity: > 100 ng/mL.Test performed by chem iluminescent immunoassay. Performed By: #### 1989-3 ## ##[facility] LABCLIA [id number] [facility] [id number] [id number] [place] CNPN on 11-11-2022 CNPN Normal [facility] metabolic 2000 panel on 01-12-2022 Albumin [Mass/Vol] 3.7 g/dL Low 3.9-4.9 [facility] Comment on above: Order Comment: Specimen Type : BLOOD SPECIMENOrdering Facility: [facility] Address: [address] [place] [address] Performed By: #### 39683-7 # ###[facility] ERNCLIA [id number] [address] [facility] [place] [address] [place] ALP [Catalytic activity/Vol] 69 U/L Normal 34-123 [facility] Comment on above: Order Comment: Specimen Type : BLOOD SPECIMENOrdering Facility: [facility] Address: [address] [place] [address] Performed By: #### 33038-1 # ###[facility] RONAL MILLTOWNCLIA [id number] [place] [address] [place] ALT [Catalytic activity/Vol] 24 U/L Normal 7-38 [facility] Comment on above: Order Comment: Specimen Type : BLOOD SPECIMENOrdering Facility: [facility] Address: [address] [place] [address] Performed By: #### 16866-1 # ###[facility] MILLTOWNCLIA [id number] [place] [address] [place] Anion gap [Moles/Vol] 12 mmol/L Normal 9-18 [facility] Comment on above: Order Comment: Specimen Type : BLOOD SPECIMENOrdering Facility: [facility] Address: [address] [place] [address] Performed By: #### 67706-7 # ###[facility] MILLTOWNCLIA [id number] [place] [address] [place] AST [Catalytic activity/Vol] 19 U/L Normal 13-35 [facility] Comment on above: Order Comment: Specimen Type : BLOOD SPECIMENOrdering Facility: [facility] Address: [address] [place] [address] Performed By: #### 29645-3 # ###[facility] MILLTOWNCLIA [id number] [address] [facility] [address] [place] Bilirubin [Mass/Vol] 0.2 mg/dL Normal 0.2-1.3 [facility] Comment on above: Order Comment: Specimen Type : BLOOD SPECIMENOrdering Facility: [facility] Address: [address] [facility] [address] [place] [address] Performed By: #### 03721-7 # ###[facility] RONAL MILLTOWNCLIA [id number] [place] [address] [place] Calcium [Mass/Vol] 9.4 mg/dL Normal 8.5-10.2 [facility] Comment on above: Order Comment: Specimen Type : BLOOD SPECIMENOrdering Facility: [facility] Address: [address] [address] Performed By: #### 76369-9 # ###[facility] MILLTOWNCLIA [id number] [place] [address] [place] Chloride [Moles/Vol] 90 mmol/L Low 97-105 [facility] Comment on above: Order Comment: Specimen Type : BLOOD SPECIMENOrdering Facility: [facility] Address: [address] [address] Performed By: #### 99179-3 # ###[facility] MILLWNCLIA [id number] [place] [address] [place] CO2 [Moles/Vol] 30 mmol/L Normal 22-30 [facility] Comment on above: Order Comment: Specimen Type : BLOOD SPECIMENOrdering Facility: [facility] Address: [address] Performed By: #### 93683-3 # ###[facility] MILLTOWNCLIA [id number] [place] [address] [place] Creatinine [Mass/Vol] 1.27 mg/dL High 0.58-0.96 [facility] Comment on above: Order Comment: Specimen Type : BLOOD SPECIMENOrdering Facility: [facility] Address: [address] [address] Performed By: #### 06472-0 # ###[facility] [id number] [place] [address] [place] ESTIMATED GLOMERULAR 53 mL/min/1.73m??? Low >=60 [facility] FILTRATION RATE Comment on above: Order Comment: Specimen Type : BLOOD SPECIMENOrdering Facility: [facility] Address: [address] [place] [address] Result Comment: Estimated Gl omerular Filtration Rate [...] accurately reflect actual GFR. Performed By: #### 39763-2 # ###[facility] [id number] [place] [address] [place] Glucose [Mass/Vol] 221 mg/dL High 74-99 [facility] Comment on above: Order Comment: Specimen Type : BLOOD SPECIMENOrdering Facility: [facility] Address: [address] [place] [address] Result Comment: The [place] Diabetes Association (ADA) provides guidance for cutoff [...] of Medical Care in Diabetes 2016, [facility] Diabetes Association. Diabetes Care. 2016.39(Suppl 1). Performed By: #### 97139-6 # ###[facility]IA [id number] [place] [address] [place] Potassium [Moles/Vol] 4.9 mmol/L Normal 3.7-5.1 [facility] Comment on above: Order Comment: Specimen Type : BLOOD SPECIMENOrdering Facility: [facility] Address: [address] [place] [address] Performed By: #### 43474-5 # ###[facility] RONAL MILLTOWNCLIA [id number] [place] [address] [place] Protein [Mass/Vol] 6.9 g/dL Normal 6.3-8.0 [facility] Comment on above: Order Comment: Specimen Type : BLOOD SPECIMENOrdering Facility: [facility] Address: [address] [place] [address] Performed By: #### 34626-2 # ###[facility] MILLTOWKALILIA [id number] [place] [address] [place] Sodium [Moles/Vol] 132 mmol/L Low 136-144 [facility] Comment on above: Order Comment: Specimen Type : BLOOD SPECIMENOrdering Facility: [facility] Address: [address] [place] [address] Performed By: #### 85648-5 # ###[facility] MILLTOWNCLIA [id number] [place] [address] [place] Urea nitrogen [Mass/Vol] 44 mg/dL High 7-21 [facility] Comment on above: Order Comment: Specimen Type : BLOOD SPECIMENOrdering Facility: [facility] Address: [address] [place] [address] Performed By: #### 93157-8 # ###[facility] MILLTOWNCLIA [id number] [place] [address] [place] Albumin [Mass/Vol] 3.7 g/dL Low 3.9 - 4.9 g/dL [facility] ALP [Catalytic 69 U/L 34 - 123 U/L [facility]/Vol] ALT [Catalytic 24 U/L 7 - 38 U/L [facility] rebecca activity/Vol] Anion gap [Moles/Vol] 12 mmol/L 9 - 18 mmol/L [facility] AST [Catalytic 19 U/L 13 - 35 U/L [facility] rebecca activity/Vol] Bilirubin [Mass/Vol] 0.2 mg/dL 0.2 - 1.3 mg/dL [facility] Calcium [Mass/Vol] 9.4 mg/dL 8.5 - 10.2 mg/dL [facility] Chloride [Moles/Vol] 90 mmol/L Low 97 - 105 mmol/L [facility] CO2 [Moles/Vol] 30 mmol/L 22 - 30 mmol/L [facility] Creatinine [Mass/Vol] 1.27 mg/dL High 0.58 - 0.96 mg/dL C [facility] Estimated Glomerular 53 mL/min/1.73m Low >=60 mL/min/1.73m [facility] Filtration Rate Glucose [Mass/Vol] 221 mg/dL High 74 - 99 mg/dL [facility] Potassium [Moles/Vol] 4.9 mmol/L 3.7 - 5.1 mmol/L [facility] Protein [Mass/Vol] 6.9 g/dL 6.3 - 8.0 g/dL [facility] Sodium [Moles/Vol] 132 mmol/L Low 136 - 144 mmol/L [facility] Urea nitrogen [Mass/Vol] 44 mg/dL High 7 - 21 mg/dL [facility] HbA1c (Bld) on 11-11-2022 Average glucose Estimated from glycated 243 mg/dL Normal [facility] hemoglobin (Bld) [Mass/Vol] Comment on above: Order Comment: Specimen Type : BLOOD SPECIMENOrdering Facility: [facility] Address: [address] [place] [address] Result Comment: eAG: (Estima mitul average glucose) is a calculated value from HgbA1c and is rep resentative of the average blood glucose level in the last 2- 3 month period. Performed By: #### 04927-9 # ###[facility] LABCLIA [id number] [place] [id number] [place] HbA1c (Bld) [Mass fraction] 10.1 % High 4.3-5.6 [facility] Comment on above: Order Comment: Specimen Type : BLOOD SPECIMENOrdering Facility: [facility] Address: [address] [facility] [place] [address] Result Comment: Citizen [place] Richard betes Association guidelines indicate that patients with HgbA1c in the range 5.7-6.4% are at increased risk for development of diab etes, and intervention by lifestyle modification may be benefici al. HgbA1c greater or equal to 6.5% is considered diagnostic of richard betes. Performed By: #### 76514-2 # ###[facility] LABIA [id number] [place] [id number] [place] Comprehensive metabolic 2000 panel on 01-10-2022 Albumin [Mass/Vol] 3.8 g/dL Low 3.9 - 4.9 g/dL [facility] ALP [Catalytic 65 U/L 34 - 123 U/L [facility] rebecca activity/Vol] ALT [Catalytic 36 U/L 7 - 38 U/L [facility] rebecca activity/Vol] Anion gap [Moles/Vol] 17 mmol/L 9 - 18 mmol/L [facility] AST [Catalytic 44 U/L High 13 - 35 U/L [facility] rebecca [facility]/Vol] Bilirubin [Mass/Vol] 0.3 mg/dL 0.2 - 1.3 mg/dL [facility] Calcium [Mass/Vol] 9.6 mg/dL 8.5 - 10.2 mg/dL [facility] Chloride [Moles/Vol] 82 mmol/L Low 97 - 105 mmol/L [facility] CO2 [Moles/Vol] 29 mmol/L 22 - 30 mmol/L [facility] Creatinine [Mass/Vol] 2.32 mg/dL High 0.58 - 0.96 mg/dL C [facility] Estimated Glomerular 26 mL/min/1.73m Low >=60 mL/min/1.73m [facility] Filtration Rate Glucose [Mass/Vol] 107 mg/dL High 74 - 99 mg/dL [facility] Potassium [Moles/Vol] 5.6 mmol/L High 3.7 - 5.1 mmol/L Cl [facility] Protein [Mass/Vol] 6.7 g/dL 6.3 - 8.0 g/dL [facility] Sodium [Moles/Vol] 128 mmol/L Low 136 - 144 mmol/L [facility] Urea nitrogen [Mass/Vol] 71 mg/dL High 7 - 21 mg/dL [facility] HbA1c (Bld) on 11-09-2022 Average glucose Estimated from glycated 235 mg/dL [facility] hemoglobin (Bld) [Mass/Vol] HbA1c (Bld) [Mass fraction] 9.8 % High 4.3 - 5.6 % [facility] CNOV on 11-08-2022 CNOV Normal [facility] metabolic 2000 panel on 01-09-2022 Albumin [Mass/Vol] 3.8 g/dL Low 3.9-4.9 [facility] Comment on above: Order Comment: Specimen Type : BLOOD SPECIMENOrdering Facility: [facility] Address: [address] [address] Performed By: #### 02094-4 # ###[facility] LABIA [id number] [place] [address] [place] ALP [Catalytic activity/Vol] 65 U/L Normal 34-123 [facility] Comment on above: Order Comment: Specimen Type : BLOOD SPECIMENOrdering Facility: [facility] Address: [address] [address] Performed By: #### 01168-4 # ###[facility] LABCLIA [id number] [place] [address] [place] ALT [Catalytic activity/Vol] 36 U/L Normal 7-38 [facility] Comment on above: Order Comment: Specimen Type : BLOOD SPECIMENOrdering Facility: [facility] Address: [address] [address] Performed By: #### 74239-1 # ###[facility] LABCLIA [id number] [place] [address] [place] Anion gap [Moles/Vol] 17 mmol/L Normal 9-18 [facility] Comment on above: Order Comment: Specimen Type : BLOOD SPECIMENOrdering Facility: [facility] Address: [address] [place] [address] Performed By: #### 15728-3 # ###[facility] LABCLIA [id number] [place] [address] [place] AST [Catalytic activity/Vol] 44 U/L High 13-35 [facility] Comment on above: Order Comment: Specimen Type : BLOOD SPECIMENOrdering Facility: [facility] Address: [address] [place] [address] Performed By: #### 61790-3 # ###[facility] LABCLIA [id number] [place] [address] [place] Bilirubin [Mass/Vol] 0.3 mg/dL Normal 0.2-1.3 [facility] Comment on above: Order Comment: Specimen Type : BLOOD SPECIMENOrdering Facility: [facility] Address: [address] [place] [address] Performed By: #### 61315-0 # ###[facility] LABCLIA [id number] [place] [address] [place] Calcium [Mass/Vol] 9.6 mg/dL Normal 8.5-10.2 [facility] Comment on above: Order Comment: Specimen Type : BLOOD SPECIMENOrdering Facility: [facility] Address: [address] Performed By: #### 77702-1 # ###[facility] LABCLIA [id number] [place] [address] [place] Chloride [Moles/Vol] 82 mmol/L Low 97-105 [facility] Comment on above: Order Comment: Specimen Type : BLOOD SPECIMENOrdering Facility: [facility] Address: [address] [place], [place] [address] Performed By: #### 11885-1 # ###[facility] LABCLIA [id number] [place] [address] [place] CO2 [Moles/Vol] 29 mmol/L Normal 22-30 [facility] Comment on above: Order Comment: Specimen Type : BLOOD SPECIMENOrdering Facility: [facility] Address: [address] [place] [address] Performed By: #### 82102-3 # ###[facility] LABIA [id number] [place] [address] [place] Creatinine [Mass/Vol] 2.32 mg/dL High 0.58-0.96 [facility] Comment on above: Order Comment: Specimen Type : BLOOD SPECIMENOrdering Facility: [facility] Address: [address] [place] [address] Performed By: #### 64490-2 # ###[facility] LABIA [id number] [place] [address] [place] ESTIMATED GLOMERULAR 26 mL/min/1.73m??? Low >=60 [facility] FILTRATION RATE Comment on above: Order Comment: Specimen Type : BLOOD SPECIMENOrdering Facility: [facility] Address: [address] [place] [address] Result Comment: Estimated Gl omerular Filtration Rate [...] accurately reflect actual GFR. Performed By: #### 10484-6 # ###[facility] LABIA [id number] [place] [address] [place] Glucose [Mass/Vol] 107 mg/dL High 74-99 [facility] Comment on above: Order Comment: Specimen Type : BLOOD SPECIMENOrdering Facility: [facility] Address: [address] [place] [address] Result Comment: The [place] Diabetes Association (ADA) provides guidance for cutoff [...] Standards of Medical Care in Diabetes 2016, [facility] Diabetes Association. Diabetes Care. 2016.39(Suppl 1). Performed By: #### 60649-4 # ###[facility] LABCLIA [id number] [place] [address] [place] Potassium [Moles/Vol] 5.6 mmol/L High 3.7-5.1 [facility] Comment on above: Order Comment: Specimen Type : BLOOD SPECIMENOrdering Facility: [facility] Address: [address] [place], [place] [address] Performed By: #### 96453-0 # ###[facility] LABCLIA [id number] [place] [address] [place] Protein [Mass/Vol] 6.7 g/dL Normal 6.3-8.0 [facility] Comment on above: Order Comment: Specimen Type : BLOOD SPECIMENOrdering Facility: [facility] Address: [address] [place] [address] Performed By: #### 35894-5 # ###[facility] LABCLIA [id number] [place] [address] [place] Sodium [Moles/Vol] 128 mmol/L Low 136-144 [facility] Comment on above: Order Comment: Specimen Type : BLOOD SPECIMENOrdering Facility: [facility] Address: [address] [address] Performed By: #### 57617-0 # ###[facility] LABCLIA [id number] [place] [address] [place] Urea nitrogen [Mass/Vol] 71 mg/dL High 7-21 [facility] Comment on above: Order Comment: Specimen Type : BLOOD SPECIMENOrdering Facility: [facility] Address: [address] [place] [address] Performed By: #### 24782-9 # ###[facility] LABCLIA [id number] [place] [address] [place] HbA1c (Bld) on 11-08-2022 Average glucose Estimated from glycated 235 mg/dL Normal [facility] hemoglobin (Bld) [Mass/Vol] Comment on above: Order Comment: Specimen Type : BLOOD SPECIMENOrdering Facility: [facility] Address: [address] [place] [address] Result Comment: eAG: (Estima mitul average glucose) is a calculated value from HgbA1c and is rep resentative of the average blood glucose level in the last 2- 3 month period. Performed By: #### 81680-8 # ###[facility] LABCLIA [id number] [address] [place] HbA1c (Bld) [Mass fraction] 9.8 % High 4.3-5.6 [facility] Comment on above: Order Comment: Specimen Type : BLOOD SPECIMENOrdering Facility: [facility] Address: [address] [place] [address] Result Comment: [place] Richard betes Association guidelines indicate that patients with HgbA1c in the range 5.7-6.4% are at increased risk for development of diab etes, and intervention by lifestyle modification may be benefici al. HgbA1c greater or equal to 6.5% is considered diagnostic of richard betes. Performed By: #### 82586-4 # ###[facility] LABCLIA [id number] [facility] [id number] [address] [place] CNOV on 11-06-2022 CNOV Normal [facility] CNPN on 11-05-2022 CNPN Normal [facility] CNPN on 10-22-2022 CNPN Normal [facility] CNPN on 10-21-2022 CNPN Normal [facility] MAGNESIUM BLD on 10-19-2022 Magnesium [Mass/Vol] 2.0 mg/dL 1.7 - 2.3 mg/dL [facility] PHOSPHORUS INORGANIC on 10-19-2022 Phosphate [Mass/Vol] 3.4 mg/dL 2.7 - 4.8 mg/dL [facility] TSH BLD on 10-19-2022 TSH Qn 4.130 m[IU]/L 0.270 - 4.200 mIU/L [facility] CBC W Auto Differential panel (Bld) on 10-18-2022 Basophils (Bld) [#/Vol] 0.05 10*3/uL Normal <0.11 [facility] Comment on above: Order Comment: Specimen Type : BLOOD SPECIMENOrdering Facility: [facility] Address: [address] [place] [address] Performed By: #### 75596-3 # ###[facility] [id number] [place] [address] [place] Basophils/100 WBC (Bld) 0.6 % Normal [facility] Comment on above: Order Comment: Specimen Type : BLOOD SPECIMENOrdering Facility: [facility] Address: [address] [place], [place] [address] Performed By: #### 49910-2 # ###[facility] [id number] [place] [address] [place] Differential cell count method Nom (Bld) Auto Normal [facility] Comment on above: Order Comment: Specimen Type : BLOOD SPECIMENOrdering Facility: [facility] Address: [address] [place], [place] [address] Performed By: #### 60250-7 # ###[facility] MILLTOWNCLIA [id number] [place] [address] [place] Eosinophils (Bld) [#/Vol] 0.25 10*3/uL Normal <0.46 [facility] Comment on above: Order Comment: Specimen Type : BLOOD SPECIMENOrdering Facility: [facility] Address: [address] [place] [address] Performed By: #### 81503-4 # ###[facility] MILLWNCLIA [id number] [place] [address] [place] Eosinophils/100 WBC (Bld) 2.8 % Normal [facility] Comment on above: Order Comment: Specimen Type : BLOOD SPECIMENOrdering Facility: [facility] Address: [address] [place] [address] Performed By: #### 13310-2 # ###[facility]ICWNCLIA [id number] [place] [address] [place] Erythrocyte distribution width (RBC) 17.0 % High 11.5 -15.0 [facility] [Ratio] Comment on above: Order Comment: Specimen Type : BLOOD SPECIMENOrdering Facility: [facility] Address: [address] [place] [address] Performed By: #### 38860-6 # ###[facility] MILLWNCLIA [id number] [address] OF [place] Hematocrit (Bld) [Volume fraction] 43.7 % Normal 36.0-4 6.0 [facility] Comment on above: Order Comment: Specimen Type : BLOOD SPECIMENOrdering Facility: [facility] Address: [address] [place] [address] Performed By: #### 05861-5 # ###[facility] MILLWNCLIA [id number] [place] [address] [place] Hemoglobin (Bld) [Mass/Vol] 12.9 g/dL Normal 11.5-15.5 [facility] Comment on above: Order Comment: Specimen Type : BLOOD SPECIMENOrdering Facility: [facility] Address: [address] [place] [address] Performed By: #### 20510-5 # ###[facility] CLINICWMSLIA [id number] [place] [address] [place] Immature granulocytes (Bld) 0.08 10*3/uL Normal <0.10 [facility] [#/Vol] Comment on above: Order Comment: Specimen Type : BLOOD SPECIMENOrdering Facility: [facility] Address: [address] [place] [address] Performed By: #### 76728-7 # ###[facility] [id number] [place] [address] [place] Immature granulocytes/100 WBC (Bld) 0.9 % Normal [facility] Comment on above: Order Comment: Specimen Type : BLOOD SPECIMENOrdering Facility: [facility] Address: [address] [place] [address] Performed By: #### 24842-6 # ###[facility]ALL[facility] [id number] [place] [address] [place] Lymphocytes (Bld) [#/Vol] 1.57 10*3/uL Normal 1.00-4.00 [facility] Comment on above: Order Comment: Specimen Type : BLOOD SPECIMENOrdering Facility: [facility] Address: [address] [place] [address] Performed By: #### 10236-9 # ###[facility] [id number] [place] [address] [place] Lymphocytes/100 WBC (Bld) 17.8 % Normal [facility] Comment on above: Order Comment: Specimen Type : BLOOD SPECIMENOrdering Facility: [facility] Address: [address] [place] [address] Performed By: #### 77420-6 # ###[facility] ERALAYNA [id number] [address] [place] MCH (RBC) [Entitic mass] 27.7 pg Normal 26.0-34.0 [facility] Comment on above: Order Comment: Specimen Type : BLOOD SPECIMENOrdering Facility: [facility] Address: [address] [place] [address] Performed By: #### 01786-8 # ###[facility] ERKALIVALLEY VIEW [facility] [id number] [place] [address] [place] MCHC (RBC) [Mass/Vol] 29.5 g/dL Low 30.5-36.0 [facility] Comment on above: Order Comment: Specimen Type : BLOOD SPECIMENOrdering Facility: [facility] Address: [address] [place] [address] Performed By: #### 93373-6 # ###[facility] CENTERShaq [id number] [address] [place] MCV (RBC) [Entitic vol] 93.8 fL Normal 80.0-100.0 [facility] Comment on above: Order Comment: Specimen Type : BLOOD SPECIMENOrdering Facility: [facility] Address: [address] [place] [address] Performed By: #### 69387-4 # ###[facility] [id number] [place] [address] [place] [facility] OF [place] Monocytes (Bld) [#/Vol] 0.38 10*3/uL Normal <0.87 [facility] Comment on above: Order Comment: Specimen Type : BLOOD SPECIMENOrdering Facility: [facility] Address: [address] [address] Performed By: #### 98625-6 # ###[facility] MILLTOWNCLIA [id number] [place] [address] [place] Monocytes/100 WBC (Bld) 4.3 % Normal [facility] Comment on above: Order Comment: Specimen Type : BLOOD SPECIMENOrdering Facility: [facility] Address: [address] [address] Performed By: #### 73033-7 # ###[facility] MILLTOWNCLIA [id number] [place] [address] [place] Neutrophils (Bld) [#/Vol] 6.50 10*3/uL Normal 1.45-7.50 [facility] Comment on above: Order Comment: Specimen Type : BLOOD SPECIMENOrdering Facility: [facility] Address: [address] [address] Performed By: #### 57948-3 # ###[facility] ERNCLIA [id number] [place] [address] [place] Neutrophils/100 WBC (Bld) 73.6 % Normal [facility] Comment on above: Order Comment: Specimen Type : BLOOD SPECIMENOrdering Facility: [facility] Address: [address] [address] Performed By: #### 71934-1 # ###[facility] MILLWNCLIA [id number] [place] [address] [place] Nucleated RBC (Bld) [#/Vol] 10*3/uL Normal <0.01 [facility] Comment on above: Order Comment: Specimen Type : BLOOD SPECIMENOrdering Facility: [facility] Address: [address] [address] Performed By: #### 64353-1 # ###[facility] MILLWNCLIA [id number] [place] [address] [place] Nucleated RBC/100 WBC (Bld) [Ratio] 0.0 /100 WBC Normal [facility] Comment on above: Order Comment: Specimen Type : BLOOD SPECIMENOrdering Facility: [facility] Address: [address] [place] [address] Performed By: #### 76418-0 # ###[facility] ERALAYNA [id number] [place] [address] [place] Platelet mean volume (Bld) [Entitic 9.8 fL Normal 9.0-1 2.7 [facility] vol] Comment on above: Order Comment: Specimen Type : BLOOD SPECIMENOrdering Facility: [facility] Address: [address] [place] [address] Performed By: #### 42520-7 # ###[facility] ERKALIShaq [id number] [place] [address] [place] Platelets (Bld) [#/Vol] 188 10*3/uL Normal 150-400 [facility] Comment on above: Order Comment: Specimen Type : BLOOD SPECIMENOrdering Facility: [facility] Address: [address] [place] [address] Performed By: #### 03154-0 # ###[facility] ERAYALAA [id number] [place] [address] [place] RBC (Bld) [#/Vol] 4.66 10*6/uL Normal 3.90-5.20 [facility] Comment on above: Order Comment: Specimen Type : BLOOD SPECIMENOrdering Facility: [facility] Address: [address] [place] [address] Performed By: #### 88477-0 # ###[facility] ERKALILIA [id number] [place] [address] [place] WBC (Bld) [#/Vol] 8.83 10*3/uL Normal 3.70-11.00 [facility] Comment on above: Order Comment: Specimen Type : BLOOD SPECIMENOrdering Facility: [facility] Address: [place] [address] Performed By: #### 02707-4 # ###[facility] RONAL [facility] [id number] [place] [address] [place] Basophils (Bld) [#/Vol] 0.05 10*3/uL <0.11 k/uL [facility] Basophils/100 WBC (Bld) 0.6 % [facility] Differential cell count method Auto [facility] Nom (Bld) Eosinophils (Bld) [#/Vol] 0.25 10*3/uL <0.46 k/uL [facility] Eosinophils/100 WBC (Bld) 2.8 % [facility] Erythrocyte distribution width 17.0 % High 11.5 - 15. 0 % [facility] (RBC) [Ratio] Hematocrit (Bld) [Volume 43.7 % 36.0 - 46.0 % [facility] fraction] Hemoglobin (Bld) [Mass/Vol] 12.9 g/dL 11.5 - 15.5 g /dL [facility] Immature granulocytes (Bld) 0.08 10*3/uL <0.10 k/uL [facility] [#/Vol] Immature granulocytes/100 WBC 0.9 % [facility] (Bld) Lymphocytes (Bld) [#/Vol] 1.57 10*3/uL 1.00 - 4.00 k/u L [facility] Lymphocytes/100 WBC (Bld) 17.8 % [facility] MCH (RBC) [Entitic mass] 27.7 pg 26.0 - 34.0 pg C [facility] MCHC (RBC) [Mass/Vol] 29.5 g/dL Low 30.5 - 36.0 g/dL [facility] MCV (RBC) [Entitic vol] 93.8 fL 80.0 - 100.0 fL C [facility] Monocytes (Bld) [#/Vol] 0.38 10*3/uL <0.87 k/uL [facility] Monocytes/100 WBC (Bld) 4.3 % [facility] Neutrophils (Bld) [#/Vol] 6.50 10*3/uL 1.45 - 7.50 k/u L [facility] Neutrophils/100 WBC (Bld) 73.6 % [facility] Nucleated RBC (Bld) [#/Vol] <0.01 k/uL [facility] Nucleated RBC/100 WBC (Bld) 0.0 /100 WBC [facility] [Ratio] Platelet mean volume (Bld) 9.8 fL 9.0 - 12.7 fL [facility] [Entitic vol] Platelets (Bld) [#/Vol] 188 10*3/uL 150 - 400 k/uL [facility] RBC (Bld) [#/Vol] 4.66 10*6/uL 3.90 - 5.20 m/uL [facility] WBC (Bld) [#/Vol] 8.83 10*3/uL 3.70 - 11.00 k/uL [facility] CNOV on 10-18-2022 CNOV Normal [facility] CNPN on 10-18-2022 CNPN Normal [facility] Comprehensive metabolic 2000 panel on 12-18-2021 Albumin [Mass/Vol] 4.2 g/dL Normal 3.9-4.9 [facility] Comment on above: Order Comment: Specimen Type : BLOOD SPECIMENOrdering Facility: [facility] Address: [address] [address] Performed By: #### 27881-2 # ###[facility] [id number] [place] [address] [place] [facility] ALP [Catalytic activity/Vol] 68 U/L Normal 34-123 [facility] Comment on above: Order Comment: Specimen Type : BLOOD SPECIMENOrdering Facility: [facility] Address: [address] [address] Performed By: #### 10232-0 # ###[facility] [id number] [place] [address] [place] ALT [Catalytic activity/Vol] 24 U/L Normal 7-38 [facility] Comment on above: Order Comment: Specimen Type : BLOOD SPECIMENOrdering Facility: [facility] Address: [address] [address] Performed By: #### 32758-7 # ###[facility] RONAL MILLTOWNCLIA [id number] [place] [address] [place] Anion gap [Moles/Vol] 10 mmol/L Normal 9-18 [facility] Comment on above: Order Comment: Specimen Type : BLOOD SPECIMENOrdering Facility: [facility] Address: [address] [address] Performed By: #### 12486-0 # ###[facility] RONAL MILLTOWNCLIA [id number] [place] [address] [place] AST [Catalytic activity/Vol] 33 U/L Normal 13-35 [facility] Comment on above: Order Comment: Specimen Type : BLOOD SPECIMENOrdering Facility: [facility] Address: [address] [address] Performed By: #### 08964-5 # ###[facility] RONAL MILLTOWNCLIA [id number] [place] [address] [place] Bilirubin [Mass/Vol] 0.2 mg/dL Normal 0.2-1.3 [facility] Comment on above: Order Comment: Specimen Type : BLOOD SPECIMENOrdering Facility: [facility] Address: [address] [address] Performed By: #### 53070-5 # ###[facility] RONAL MILLTOWNCLIA [id number] [place] [address] [place] Calcium [Mass/Vol] 10.2 mg/dL Normal 8.5-10.2 [facility] Comment on above: Order Comment: Specimen Type : BLOOD SPECIMENOrdering Facility: [facility] Address: [address] [address] Performed By: #### 91126-9 # ###[facility] RONAL MILLTOWNCLIA [id number] [place] [address] [place] Chloride [Moles/Vol] 91 mmol/L Low 97-105 [facility] Comment on above: Order Comment: Specimen Type : BLOOD SPECIMENOrdering Facility: [facility] Address: [address] [place] [address] Performed By: #### 69207-1 # ###[facility] MILLTOWNCLIA [id number] [place] [address] [place] CO2 [Moles/Vol] 39 mmol/L High 22-30 [facility] Comment on above: Order Comment: Specimen Type : BLOOD SPECIMENOrdering Facility: [facility] Address: [address] [place] [address] Performed By: #### 36038-0 # ###[facility]ICWNCLIA [id number] [place] [address] [place] Creatinine [Mass/Vol] 0.95 mg/dL Normal 0.58-0.96 [facility] Comment on above: Order Comment: Specimen Type : BLOOD SPECIMENOrdering Facility: [facility] Address: [address] [place] [address] Performed By: #### 58915-5 # ###[facility] ERNCLIA [id number] [address] [place] ESTIMATED GLOMERULAR 75 mL/min/1.73m??? Normal >=60 C [facility] FILTRATION RATE Comment on above: Order Comment: Specimen Type : BLOOD SPECIMENOrdering Facility: [facility] Address: [address] [place] [address] Result Comment: Estimated Gl omerular Filtration Rate [...] accurately reflect actual GFR. Performed By: #### 36555-4 # ###[facility] RONAL MILLTOWNCLIA [id number] [place] [address] [place] Glucose [Mass/Vol] 180 mg/dL High 74-99 [facility] Comment on above: Order Comment: Specimen Type : BLOOD SPECIMENOrdering Facility: [facility] Address: [place] [address] Result Comment: The [place] Diabetes Association (ADA) provides guidance for cutoff [...] of Medical Care in Diabetes 2016, [facility] Diabetes Association. Diabetes Care. 2016.39(Suppl 1). Performed By: #### [id number] # ###[facility] MILLTOWNCLIA [id number] [place] [address] [place] Potassium [Moles/Vol] 4.3 mmol/L Normal 3.7-5.1 [facility] Comment on above: Order Comment: Specimen Type : BLOOD SPECIMENOrdering Facility: [facility] Address: [place] [address] Performed By: #### 78350-1 # ###[facility] MILLTOWNCLIA [id number] [place] [address] [place] Protein [Mass/Vol] 7.4 g/dL Normal 6.3-8.0 [facility] Comment on above: Order Comment: Specimen Type : BLOOD SPECIMENOrdering Facility: [facility] Address: [place] [place] [address] Performed By: #### 83234-0 # ###[facility] RONAL MILLTOWNCLIA [id number] [place] [address] [place] Sodium [Moles/Vol] 140 mmol/L Normal 136-144 [facility] Comment on above: Order Comment: Specimen Type : BLOOD SPECIMENOrdering Facility: [facility] Address: [address] [place] [address] Performed By: #### 47444-2 # ###[facility] MILLTOWNCLIA [id number] [place] [address] [place] Urea nitrogen [Mass/Vol] 22 mg/dL High 7-21 [facility] Comment on above: Order Comment: Specimen Type : BLOOD SPECIMENOrdering Facility: [facility] Address: [address] [place] [address] Performed By: #### 72557-9 # ###[facility] RONAL MILLTOWNCLIA [id number] [place] [address] [place] Albumin [Mass/Vol] 4.2 g/dL 3.9 - 4.9 g/dL [facility] ALP [Catalytic 68 U/L 34 - 123 U/L [facility] rebecca activity/Vol] ALT [Catalytic 24 U/L 7 - 38 U/L [facility] rebecca activity/Vol] Anion gap [Moles/Vol] 10 mmol/L 9 - 18 mmol/L [facility] AST [Catalytic 33 U/L 13 - 35 U/L [facility] rebecca activity/Vol] Bilirubin [Mass/Vol] 0.2 mg/dL 0.2 - 1.3 mg/dL [facility] Calcium [Mass/Vol] 10.2 mg/dL 8.5 - 10.2 mg/dL [facility] Chloride [Moles/Vol] 91 mmol/L Low 97 - 105 mmol/L [facility] CO2 [Moles/Vol] 39 mmol/L High 22 - 30 mmol/L [facility] Creatinine [Mass/Vol] 0.95 mg/dL 0.58 - 0.96 mg/dL C [facility] Estimated Glomerular 75 mL/min/1.73m >=60 mL/min/1.73m [facility] Filtration Rate Glucose [Mass/Vol] 180 mg/dL High 74 - 99 mg/dL [facility] Potassium [Moles/Vol] 4.3 mmol/L 3.7 - 5.1 mmol/L Cl [facility] Protein [Mass/Vol] 7.4 g/dL 6.3 - 8.0 g/dL [facility] Sodium [Moles/Vol] 140 mmol/L 136 - 144 mmol/L [facility] Urea nitrogen [Mass/Vol] 22 mg/dL High 7 - 21 mg/dL [facility] ECG01 on 10-18-2022 ECG01 Normal [facility] [place] Magnesium SerPl-mCnc on 10-18-2022 Magnesium [Mass/Vol] 2.0 mg/dL Normal 1.7-2.3 [facility] Comment on above: Order Comment: Specimen Type : BLOOD SPECIMENOrdering Facility: [facility] Address: [address] [place] [id number] Performed By: #### 2777-1, 1 9123-08, 3016-01 ####[facility] LABCLIA [id number] [address] [address] [place] Phosphate SerPl-mCnc on 10-18-2022 Phosphate [Mass/Vol] 3.4 mg/dL Normal 2.7-4.8 [facility] Comment on above: Order Comment: Specimen Type : BLOOD SPECIMENOrdering Facility: [facility] Address: [place] [address] Performed By: #### 2777-1, 1 43, 3 ####[facility] LABCLIA [id number] [address] [address] [place] TSH SerPl-aCnc on 10-18-2022 TSH Qn 4.130 m[IU]/L Normal 0.270-4.200 [facility] Comment on above: Order Comment: Specimen Type : BLOOD SPECIMENOrdering Facility: [facility] Address: [address] [place] [address] Result Comment: If the patie nt is [...] Mei, et al. 2017 Guidelines of the Citizen Of [place] T hyroid Association for the Diagnosis and Management of Thyroid Di sease during and the . Thyroid, 2017:27 :3:315-389. Performed By: #### 2777-1, 1 9123-9, 3016-3 ####[facility] LABCLIA [id number] [place] [address] [place] XR CHEST 2V FRONTAL/LAT on 10-18-2022 XR CHEST 2V FRONTAL/LAT Normal [facility] CNPN on 09-09-2022 CNPN Normal [facility] CNOV on 07-23-2022 CNOV Normal [facility] CNPN on 07-11-2022 CNPN Normal [facility] ALBUMIN/CREAT RATIO RND UR on 07-09-20 22 Albumin DL <= 20 mg/L (U) [Mass/Vol] 20.0 mg/L Normal [facility] Comment on above: Order Comment: Specimen Type : URINE SPECIMENOrdering Facility: [facility] Address: [address] [place] [address] Performed By: #### UACR #### [facility] LABCLIA [id number] [place] [address] [place] Albumin/Creatinine (U) [Mass ratio] 63 mg/g High <30 [facility] Comment on above: Order Comment: Specimen Type : URINE SPECIMENOrdering Facility: [facility] Address: [address] [place] [address] Result Comment: Adult Male a nd Female Nephrotic Criteria:<30 mg/g is considered normal to mild ly mtxaivsmm20-170 mg/g is considered moderately increased>300 mg/ g is considered severely increasedKDIGO. (2013). KDIG O 2012 Clinical Practice Guideline for the Evaluation and Managemen t of Chronic Kidney Disease. Official Journal of the International Society of Nephrology, 3(1), 1-150. Performed By: #### UACR #### [facility] LABCLIA [id number] [place] [address] [place] Creatinine (U) [Mass/Vol] 31.5 mg/dL Normal 20.0-300.0 [facility] Comment on above: Order Comment: Specimen Type : URINE SPECIMENOrdering Facility: [facility] Address: [address] [place], [place] [address] Performed By: #### UACR #### [facility] LABCLIA [id number] [place] [address] [place] CNOV on 07-09-2022 CNOV Normal [facility] CNPN on 07-09-2022 CNPN Normal [facility] Comprehensive metabolic 2000 panel on 0 07-09-2022 Albumin [Mass/Vol] 4.1 g/dL Normal 3.9-4.9 [facility] Comment on above: Order Comment: Specimen Type : BLOOD SPECIMENOrdering Facility: [facility] Address: [address] [place] [id number] Performed By: #### 30652-7, 91413-7 ####[facility] LABCLIA [id number] [address] [address] [place] ALP [Catalytic activity/Vol] 58 U/L Normal 34-123 [facility] Comment on above: Order Comment: Specimen Type : BLOOD SPECIMENOrdering Facility: [facility] Address: [address] Performed By: #### 18228-9, 68411-9 ####[facility] LABCLIA [id number] [facility] [place] [id number] [place] ALT [Catalytic activity/Vol] 30 U/L Normal 7-38 [facility] Comment on above: Order Comment: Specimen Type : BLOOD SPECIMENOrdering Facility: [facility] Address: [address] [place], [place] [address] Performed By: #### 96891-6, 00227-4 ####[facility] LABCLIA [id number] 0 [facility] [address] [place] Anion gap [Moles/Vol] 12 mmol/L Normal 9-18 [facility] Comment on above: Order Comment: Specimen Type : BLOOD SPECIMENOrdering Facility: [facility] Address: [address] [place], [place] [address] Performed By: #### 84091-7, 38330-5 ####[facility] LABCLIA [id number] [address] [facility] [place] [address] [place] AST [Catalytic activity/Vol] 38 U/L High 13-35 [facility] Comment on above: Order Comment: Specimen Type : BLOOD SPECIMENOrdering Facility: [facility] Address: [address] [place] [address] Performed By: #### 83055-9, 06460-6 ####[facility] LABCLIA [id number] [address] [facility] [place] [address] [place] Bilirubin [Mass/Vol] 0.3 mg/dL Normal 0.2-1.3 [facility] Comment on above: Order Comment: Specimen Type : BLOOD SPECIMENOrdering Facility: [facility] Address: [address] [place] [address] Performed By: #### 73321-1, 15193-6 ####[facility] LABCLIA [id number] [address] [address] [place] Calcium [Mass/Vol] 10.5 mg/dL High 8.5-10.2 [facility] Comment on above: Order Comment: Specimen Type : BLOOD SPECIMENOrdering Facility: [facility] Address: [address] [place] [address] Performed By: #### 92071-1, 06673-9 ####[facility] LABCLIA [id number] 0 [place] [id number] [place] Chloride [Moles/Vol] 93 mmol/L Low 97-105 [facility] Comment on above: Order Comment: Specimen Type : BLOOD SPECIMENOrdering Facility: [facility] Address: [address] [place] [address] Performed By: #### 94515-0, 99268-2 ####[facility] LABCLIA [id number] 0 [place] [id number] [place] CO2 [Moles/Vol] 33 mmol/L High 22-30 [facility] Comment on above: Order Comment: Specimen Type : BLOOD SPECIMENOrdering Facility: [facility] Address: [address] [place] [address] Performed By: #### 99394-9, 24724-4 ####[facility] LABCLIA [id number] [address] [facility] [address] [address] [place] Creatinine [Mass/Vol] 0.73 mg/dL Normal 0.58-0.96 [facility] Comment on above: Order Comment: Specimen Type : BLOOD SPECIMENOrdering Facility: [facility] Address: [address] [place] [address] Performed By: #### 59019-7, 11225-3 ####[facility] LABIA [id number] [address] ESTIMATED GLOMERULAR 104 mL/min/1.73m??? Normal >=60 [facility] FILTRATION RATE Comment on above: Order Comment: Specimen Type : BLOOD SPECIMENOrdering Facility: [facility] Address: [address] [place] [address] Result Comment: Estimated Gl omerular Filtration Rate [...] accurately reflect actual GFR. Performed By: #### 45961-8, 99759-3 ####[facility] LABIA [id number] [address] Glucose [Mass/Vol] 165 mg/dL High 74-99 [facility] Comment on above: Order Comment: Specimen Type : BLOOD SPECIMENOrdering Facility: [facility] Address: [address] [place] [address] Result Comment: The [place] Diabetes Association (ADA) provides guidance for cutoff [...] Standards of Medical Care in Diabetes 2016, [facility] Diabetes Association. Diabetes Care. 2016.39(Suppl 1). Performed By: #### 00545-3, 06349-8 ####[facility] LABCLIA [id number] [address] [facility] [place] [address] [place] Potassium [Moles/Vol] 4.6 mmol/L Normal 3.7-5.1 [facility] Comment on above: Order Comment: Specimen Type : BLOOD SPECIMENOrdering Facility: [facility] Address: [address] [place], [place] [address] Performed By: #### 04786-7, 60009-6 ####[facility] LABCLIA [id number] [address] [place] [address] [place] Protein [Mass/Vol] 7.3 g/dL Normal 6.3-8.0 [facility] Comment on above: Order Comment: Specimen Type : BLOOD SPECIMENOrdering Facility: [facility] Address: [address] [place], [place] [address] Performed By: #### 82959-5, 23398-3 ####[facility] LABCLIA [id number] [address] [place] [address] [place] Sodium [Moles/Vol] 138 mmol/L Normal 136-144 [facility] Comment on above: Order Comment: Specimen Type : BLOOD SPECIMENOrdering Facility: [facility] Address: [address] [place], [place] [address] Performed By: #### 12522-8, 71722-3 ####[facility] LABCLIA [id number] 0 [place] [address] [place] Urea nitrogen [Mass/Vol] 11 mg/dL Normal 7-21 [facility] Comment on above: Order Comment: Specimen Type : BLOOD SPECIMENOrdering Facility: [facility] Address: [address] [place] [address] Performed By: #### 47836-3, 58066-7 ####[facility] LABCLIA [id number] [address] [facility] [place] [address] [place] HbA1c (Bld) on 08-09-2022 Average glucose Estimated from glycated 232 mg/dL Normal [facility] hemoglobin (Bld) [Mass/Vol] Comment on above: Order Comment: Specimen Type : BLOOD SPECIMENOrdering Facility: [facility] Address: [address] [place] [address] Result Comment: eAG: (Estima mitul average glucose) is a calculated value from HgbA1c and is rep resentative of the average blood glucose level in the last 2- 3 month period. Performed By: #### 32018-6 # ###[facility] LABCLIA [id number] [place] [address] [place] HbA1c (Bld) [Mass fraction] 9.7 % High 4.3-5.6 [facility] Comment on above: Order Comment: Specimen Type : BLOOD SPECIMENOrdering Facility: [facility] Address: [address] [place], [place] [address] Result Comment: [place] Richard betes Association guidelines indicate that patients with HgbA1c in the range 5.7-6.4% are at increased risk for development of diab etes, and intervention by lifestyle modification may be benefici al. HgbA1c greater or equal to 6.5% is considered diagnostic of richard betes. Performed By: #### 31540-2 # ###[facility] LABCLIA [id number] [place] [address] [place] NT-proBNP [facility] on 07-09-2022 Natriuretic peptide.B prohormone 55 pg/mL Normal <125 [facility] N-Terminal [Mass/Vol] Comment on above: Order Comment: Specimen Type : BLOOD SPECIMENOrdering Facility: [facility] Address: [address] [place] [address] Performed By: #### 28584-3, 31443-8 ####[facility] LABCLIA [id number] [address] OF ERI MD XR CHEST 2V FRONTAL/LAT on 07-09-2022 XR CHEST 2V FRONTAL/LAT Normal [facility] CNPN on 07-03-2022 CNPN Normal [facility] CNPN on 06-28-2022 CNPN Normal [facility] CNPN on 2022 CNPN Normal [facility] CNPN on 06-20-2022 CNPN Normal [facility] CNPN on 06-13-2022 CNPN Normal [facility] CNPTOUTREACH on 05-29-2022 CNPTOUTREACH Normal [facility] CNPN on 04-09-2022 CNPN Normal [facility] CNPN on 04-03-2022 CNPN Normal [facility] CNPN on 03-29-2022 CNPN Normal [facility] CNPN on 03-28-2022 CNPN Normal [facility] CNPN on 03-20-2022 CNPN Normal [facility] CNOV on 03-19-2022 CNOV Normal [facility] Comprehensive metabolic 2000 panel on 03-19-2022 Albumin [Mass/Vol] 4.0 g/dL Normal 3.9-4.9 [facility] Comment on above: Order Comment: Specimen Type : BLOOD SPECIMENOrdering Facility: [facility] Address: [address] [place] [address] Performed By: #### 45240-0 # ###[facility] [id number] [place] [address] [place] ALP [Catalytic activity/Vol] 71 U/L Normal 34-123 [facility] Comment on above: Order Comment: Specimen Type : BLOOD SPECIMENOrdering Facility: [facility] Address: [address] [place] [address] Performed By: #### 90362-5 # ###[facility] LABIA [id number] [place] [address] [place] ALT [Catalytic activity/Vol] 22 U/L Normal 7-38 [facility] Comment on above: Order Comment: Specimen Type : BLOOD SPECIMENOrdering Facility: [facility] Address: [address] [place], [place] [address] Performed By: #### 06282-4 # ###[facility] LABCLIA [id number] [place] [address] [place] Anion gap [Moles/Vol] 10 mmol/L Normal 9-18 [facility] Comment on above: Order Comment: Specimen Type : BLOOD SPECIMENOrdering Facility: [facility] Address: [address] [place], [place] [address] Performed By: #### 56649-6 # ###[facility] LABCLIA [id number] [place] [address] [place] AST [Catalytic activity/Vol] 30 U/L Normal 13-35 [facility] Comment on above: Order Comment: Specimen Type : BLOOD SPECIMENOrdering Facility: [facility] Address: [address] [place], [place] [address] Performed By: #### 83114-0 # ###[facility] LABCLIA [id number] [place] [address] [place] Bilirubin [Mass/Vol] 0.2 mg/dL Normal 0.2-1.3 [facility] Comment on above: Order Comment: Specimen Type : BLOOD SPECIMENOrdering Facility: [facility] Address: [address] [place] [address] Performed By: #### 79683-0 # ###[facility] LABCLIA [id number] [place] [address] [place] Calcium [Mass/Vol] 9.8 mg/dL Normal 8.5-10.2 [facility] Comment on above: Order Comment: Specimen Type : BLOOD SPECIMENOrdering Facility: [facility] Address: [address] [place], [place] [address] Performed By: #### 58862-4 # ###[facility] LABCLIA [id number] [place] [address] [place] Chloride [Moles/Vol] 95 mmol/L Low 97-105 [facility] Comment on above: Order Comment: Specimen Type : BLOOD SPECIMENOrdering Facility: [facility] Address: [address] [place] [address] Performed By: #### 14499-3 # ###[facility] LABCLIA [id number] [place] [address] [place] CO2 [Moles/Vol] 33 mmol/L High 22-30 [facility] Comment on above: Order Comment: Specimen Type : BLOOD SPECIMENOrdering Facility: [facility] Address: [address] [place] [address] Performed By: #### 51579-8 # ###[facility] LABCLIA [id number] [place] [address] [place] Creatinine [Mass/Vol] 0.78 mg/dL Normal 0.58-0.96 [facility] Comment on above: Order Comment: Specimen Type : BLOOD SPECIMENOrdering Facility: [facility] Address: [address] [place] [address] Performed By: #### 26912-6 # ###[facility] LABIA [id number] [place] [address] [place] ESTIMATED GLOMERULAR 96 mL/min/1.73m??? Normal >=60 [facility] FILTRATION RATE Comment on above: Order Comment: Specimen Type : BLOOD SPECIMENOrdering Facility: [facility] Address: [address] [place] [address] Result Comment: Estimated Gl omerular Filtration Rate [...] accurately reflect actual GFR. Performed By: #### 92979-1 # ###[facility] LABIA [id number] [place] [address] [place] Glucose [Mass/Vol] 251 mg/dL High 74-99 [facility] Comment on above: Order Comment: Specimen Type : BLOOD SPECIMENOrdering Facility: [facility] Address: [address] [place], [place] [address] Result Comment: The [place] Diabetes Association (ADA) provides guidance for cutoff [...] of Medical Care in Diabetes 2016, [facility] Diabetes Association. Diabetes Care. 2016.39(Suppl 1). Performed By: #### 54701-1 # ###[facility] LABIA [id number] [place] [address] [place] Potassium [Moles/Vol] 4.9 mmol/L Normal 3.7-5.1 [facility] Comment on above: Order Comment: Specimen Type : BLOOD SPECIMENOrdering Facility: [facility] Address: [address] [place] [id number] Performed By: #### 00743-0 # ###[facility] LABIA [id number] [place] [address] [place] Protein [Mass/Vol] 6.7 g/dL Normal 6.3-8.0 [facility] Comment on above: Order Comment: Specimen Type : BLOOD SPECIMENOrdering Facility: [facility] Address: [address] Performed By: #### 98031-3 # ###[facility] LABIA [id number] [place] [address] [place] Sodium [Moles/Vol] 138 mmol/L Normal 136-144 [facility] Comment on above: Order Comment: Specimen Type : BLOOD SPECIMENOrdering Facility: [facility] Address: [address] [place] [address] Performed By: #### 81980-1 # ###[facility] LABIA [id number] [place] [address] [place] Urea nitrogen [Mass/Vol] 13 mg/dL Normal 7-21 [facility] Comment on above: Order Comment: Specimen Type : BLOOD SPECIMENOrdering Facility: [facility] Address: [address] [place] [address] Performed By: #### 70799-1 # ###[facility] [id number] [place] [address] [place] HGB A1C on 03-19-2022 Average glucose Estimated from glycated 263 mg/dL Normal [facility] hemoglobin (Bld) [Mass/Vol] Comment on above: Order Comment: Specimen Type : BLOOD SPECIMENOrdering Facility: [facility] Address: [address] [place] [address] Result Comment: eAG: (Estima mitul average glucose) is a calculated value from HgbA1c and is rep resentative of the average blood glucose level in the last 2- 3 month period. Performed By: #### HBA1C ### #[facility] [id number] [place] [address] [place] HbA1c (Bld) [Mass fraction] 10.8 % High 4.3-5.6 [facility] Comment on above: Order Comment: Specimen Type : BLOOD SPECIMENOrdering Facility: [facility] Address: [address] [place] [address] Result Comment: [place] Richard betes Association guidelines indicate that patients with HgbA1c in the range 5.7-6.4% are at increased risk for development of diab etes, and intervention by lifestyle modification may be benefici al. HgbA1c greater or equal to 6.5% is considered diagnostic of richard betes. Performed By: #### HBA1C ### #[facility] LABCLIA [id number] [place] [address] [place] UA DIP, URINE (POC) on 03-19-2022 BILIRUBIN UA (POCT) Negative Negative [facility] CLARITY UA (POCT) Clear [facility] COLOR UA (POCT) Yellow [facility] inic GLUCOSE UA (POCT) 500 mg/dL Abnormal Negative mg/dL [facility] HEMOGLOBIN/BLOOD UA (POCT) Negative Negative [facility] [employer] KETONE UA (POCT) Negative Negative mg/dL [facility] LEUKOCYTES UA (POCT) Negative Negative [facility] NITRITE UA (POCT) Negative Negative [facility] PH UA (POCT) 7.0 4.5 - 8.0 [facility] Protein Ql (U) Negative Negative mg/dL [facility] SPECIFIC GRAVITY UA (POCT) 1.020 1.005 - 1.030 [facility] UROBILINOGEN UA (POCT) 0.2 E.U./dL Normal E.U./dL [facility] CNPN on 03-05-2022 CNPN Normal [facility] Vital Signs Date Time Vital Sign Value Performing Clinician Facilit y 02-23-2023 Body temperature 98.29 [degF] [facility] 14:00 Work Phone: 02-23-2023 Diastolic blood 82 mm[Hg] [facility] 14: pressure Work Phone: 02-23-2023 Heart rate 84 /min Zahra Jackson RN [facility] 14:00 Work Phone: 02-23-2023 Respiratory rate 20 /min [facility] 14:000 Work Phone: 02-23-2023 SaO2% (BldA) [Mass 96 % Zahra Jackson RN [facility] 14: fraction] Work Phone: 02-23-2023 Systolic blood 138 mm[Hg] Zahra Jackson RN [facility] 14:040 pressure Work Phone: 02-18-2023 Diastolic blood 72 mm[Hg] Panfilo Oreilly MD [facility] 11: pressure Work Phone: 02-18-2023 Heart rate 99 /min Panfilo Oreilly MD [facility] 11: Work Phone: 02-18-2023 Respiratory rate 18 /min Panfilo Oreilly MD [facility] 11: Work Phone: 02-18-2023 SaO2% (BldA) [Mass 91 % Panfilo Oreilly MD [facility] 11: fraction] Work Phone: 02-18-2023 Systolic blood 128 mm[Hg] Panfilo Oreilly MD [facility] 11: pressure Work Phone: 12-30-2022 SaO2% (BldA) [Mass 93 % PANFILO OREILLY Id solo [facility] 13:37-0500 fraction] [facility] Comment on above: Order Comment: Specimen Type : ARTERIAL BLOOD SPECIMENOrdering Facility: [facility] Address: [address] [place] [address] Performed By: #### ALLBG ### #[facility]ATORYCLIA [id number] [place] [address] [facility] 12-27-2022 07:00-0500 SaO2% (BldA) [Mass 97 % PANFILO VU [facility] fraction] [facility] Comment on above: Order Comment: Specimen Type : ARTERIAL BLOOD SPECIMENOrdering Facility: [facility] Address: [address] [place] [address] Performed By: #### ALLBG ### #[facility]ORATORYCLIA [id number] [place] [address] [facility] 12-25-2022 13:42-0500 SaO2% (BldA) [Mass 97 % CHRISTOPHER B HORACE [facility] fraction] [facility] Comment on above: Order Comment: Specimen Type : ARTERIAL BLOOD SPECIMENOrdering Facility: [facility] Address: [address] [place] [address] Performed By: #### ALLBG ### #[facility]ORATORYCLIA [id number] [place] [address] [facility] 12-25-2022 10:54-0500 SaO2% (BldA) [Mass 99 % CHRISTOPHER B LEONLEY [facility] fraction] [facility] Center Comment on above: Order Comment: Specimen Type : ARTERIAL BLOOD SPECIMENOrdering Facility: [facility] Address: [address] [place] [address] Performed By: #### ALLBG ### #[facility]ATORYCLIA [id number] [place] [address] [facility] 12-25-2022 08:26-0500 SaO2% (BldA) [Mass 96 % CHRISTOPHER B HORACE [facility] fraction] [facility] Center Comment on above: Order Comment: Specimen Type : ARTERIAL BLOOD SPECIMENOrdering Facility: [facility] Address: [address] [place] [address] Performed By: #### ALLBG ### #[facility]ORATORYCLIA [id number] [place] [address] [facility] 10-18-2022 Body temperature 96.8 [degF] Panfilo Oreilly MD [facility] 10:[address] Work Phone: 10-18-2022 Body weight 178.9 kg Panfilo Oreilly MD [facility] 10:410500 Work Phone: 10-18-2022 Diastolic blood 70 mm[Hg] Panfilo Oreilly MD [facility] 10:41050 pressure Work Phone: 10-18-2022 Heart rate 100 /min Panfilo Oreilly MD [facility] 10:410500 Work Phone: 10-18-2022 Respiratory rate 20 /min Panfilo Oreilly MD [facility] 10:410500 Work Phone: 10-18-2022 SaO2% (BldA) [Mass 97 % Panfilo Oreilly MD [facility] 10:410500 fraction] Work Phone: 10-18-2022 Systolic blood 124 mm[Hg] Panfilo Oreilly MD [facility] 10:410500 pressure Work Phone: 07-23-2022 Body height 166.4 cm Berenice Bauman MD [facility] 10: Work Phone: 07-23-2022 Body temperature 98.2 [degF] Berenice Bauman MD [facility] 10: Work Phone: 07-23-2022 Body weight 176.45 kg Berenice Bauman MD [facility] 10: Work Phone: 07-23-2022 Diastolic blood 71 mm[Hg] Berenice Bauman MD [facility] 10: pressure Work Phone: 07-23-2022 Heart rate 103 /min Berenice Bauman MD [facility] 10: Work Phone: 07-23-2022 SaO2% (BldA) [Mass 92 % Berenice Bauman MD [facility] 10:040 fraction] Work Phone: 07-23-2022 Systolic blood 136 mm[Hg] Berenice Bauman MD [facility] 10: pressure Work Phone: 03-19-2022 Body weight 168.65 kg Hallie Martinez SYSTEMS ARCHITECTURE ANALYST.NIKIA [facility] 10: Work Phone: 03-19-2022 Diastolic blood 82 mm[Hg] Hallie Carmonalogericka SYSTEMS ARCHITECTURE ANALYSTMUMTAZ [facility] 10: pressure Work Phone: 03-19-2022 Heart rate 83 /min Hallie Podlogar SYSTEMS ARCHITECTURE ANALYST.DITCHING MACHINE ENGINEER [facility] 10: Work Phone: 03-19-2022 Respiratory rate 20 /min Hallie Podlogar SYSTEMS ARCHITECTURE ANALYST.DITCHING MACHINE ENGINEER [facility] 10: Work Phone: 03-19-2022 SaO2% (BldA) [Mass 97 % Hallie Podlogar SYSTEMS ARCHITECTURE ANALYST.CN P [facility] 10: fraction] Work Phone: 03-19-2022 Systolic blood 140 mm[Hg] Hallie Podlogar SYSTEMS ARCHITECTURE ANALYST.DITCHING MACHINE ENGINEER [facility] 10: pressure Work Phone: Encounters Encounter Date Encounter Type Care Provider Facility Start: 02-26-2023 Home visit Karyn [facility] End: 02-26-2023 Work Phone: Comment on above: SERVICE REPRESENTATIVE CARE COORDINATION Start: 02-25-2023 Home visit Karyn Vernon [facility] End: 02-25-2023 Work Phone: Comment on above: SERVICE REPRESENTATIVE CARE COORDINATION Start: 02-24-2023 Telephone encounter Panfilo Guzman [facility] Work Phone: [place] Comment on above: Patient Update Start: 02-23-2023 Home visit Zahra Jackson RN [facility] rebecca Home Care End: 02-23-2023 Work Phone: Comment on above: SN SOC Start: 02-21-2023 [facility] Work [facility] Start: 02-21-2023 Telephone encounter Panfilo Oreilly MD [facility] Medicine Work Phone: [place] Comment on above: Fax last Office Vist Notes Transition Of Care (TCM Phar [place]-Hospital discharge 02/20/23) Transition Of Care (TCM Init ial [facility] Discharge 02/20/23/) Start: 02-20-2023 Telephone encounter [facility] Comment on above: Home Care (MD to follow) Start: 02-19-2023 Telephone encounter Panfilo Oreilly MD [facility] Work Phone: [place] Comment on above: Results Start: 02-19-2023 Evaluation and PANFILO OREILLY Facility :[facility] End: 02-20-2023 management of inpatient Start: 02-18-2023 ambulatory PANFILO OREILLY Facility :[place] End: 02-19-2023 [facility] Start: 02-18-2023 Patient encounter Panfilo Oreilly MD [facility] [place] End: 02-19-2023 procedure Work Phone: Comment on above: Abscess of groin, left (Prim shaina Dx); Non-healing open wound of le ft groin, initial encounter; Necrotizing soft tissue infe ction; Cellulitis of skin; Type 2 diabetes mellitus wit h diabetic polyneuropathy, with long-term current use of insulin (HCC) Start: 02-04-2023 Telephone encounter Panfilo Oreilly MD [facility] Medicine Work Phone: [place] Comment on above: [facility] PT Order Request Start: 02-03-2023 Refill Panfilo Oreilly MD [facility] [place] Work Phone: Comment on above: Refill Request Start: 01-30-2023 Telephone encounter Panfilo Oreilly MD [facility] Medicine Work Phone: [place] Comment on above: Appointment Start: 01-28-2023 ambulatory [facility] Start: 01-28-2023 Follow-up encounter Raquel Payne RN Ambul atory Care Management Comment on above: Transition Of Care (TCM foll ow up/) Start: 01-21-2023 Telephone encounter Panfilo Oreilly MD [facility] Work Phone: [place] Comment on above: Custodial Start: 01-20-2023 Telephone encounter Brandi Fernando MD [facility] Work Phone: [facility] Comment on above: Refill Request Start: 01-17-2023 Patient Outreach Brissa Kilpatrick [facility] Pharm acy Work Phone: Comment on above: Transition Of Care (TCM Phar juan-Hospital discharge 01/16/23) Start: 01-15-2023 Telephone encounter Panfilo Oreilly MD [facility] Work Phone: [place] Comment on above: Patient Update Start: 01-14-2023 ambulatory Mimi Crowley RN [facility]USAN RODGERS Start: 01-14-2023 Follow-up encounter Mimi Crowley RN Ambulat ory Care Management Comment on above: Transition Of Care (TCM foll ow-up readmitted to hospital) Start: 01-14-2023 Telephone encounter Panfilo Oreilly MD [facility] Work Phone: [place] Comment on above: Appointment Start: 01-13-2023 Evaluation and HUBERT LEBLANC Facility:A [facility] End: 01-16-2023 management of inpatient Start: 01-13-2023 ambulatory PANFILO OREILLY Facility :[facility] End: 01-13-2023 Start: 01-12-2023 Emergency department PANFILO OREILLY [facility] ility:[facility] End: 01-13-2023 patient visit Start: 01-06-2023 Orders Only Panfilo Arizmendi MD [facility] ER ADULT Work Phone: Comment on above: Necrotizing soft tissue infe ction Medication Request Patient Update Start: 01-03-2023 Refill Panfilo Oreilly MD [facility] Work Phone: Comment on above: Refill Request Start: 01-02-2023 Patient Outreach Brissa Kilpatrick [facility] Pharm [facility] Work Phone: Comment on above: Transition Of Care (TCM Phar juan-Hospital discharge 01/01/23) Transition Of Care (TCM init ial outreach-dc'd from [facility] 01/01/23) Missed Appointment (Pharmacy visit reschedule) Start: 12-31-2022 Refill Panfilo Oreilly MD [facility] [place] Work Phone: Comment on above: Refill Request Start: 12-27-2022 Refill Anabella Gaines SYSTEMS ARCHITECTURE ANALYST.DITCHING MACHINE ENGINEER [facility] [place] Work Phone: Comment on above: Refill Request Start: 12-26-2022 Telephone encounter Panfilo Oreilly MD [facility] Work Phone: [place] Comment on above: Patient Update Start: 12-25-2022 ambulatory [place] SYSTEMS ARCHITECTURE ANALYST.DITCHING MACHINE ENGINEER Critical C are Work Phone: Start: 12-25-2022 Evaluation and PANFILO OREILLY Facility :[place] End: 01-01-2023 management of General inpatient Start: 12-24-2022 Telephone encounter Panfilo Oreilly MD [facility] Work Phone: [place] Comment on above: Patient Update Start: 12-12-2022 Refill Panfilo Oreilly MD [facility] [place] Work Phone: Comment on above: Refill Request Medication Problem Start: 12-11-2022 ambulatory PANFILO OREILLY [facility] End: 12-11-2022 Start: 12-05-2022 Telephone encounter Robertlara Frostgo [facility] Pharm Med Clinic Work Phone: Comment on above: Missed Appointment Start: 11-27-2022 Refill Panfilo Oreilly MD [facility] [place] Work Phone: Comment on above: Refill Request Start: 11-11-2022 ambulatory PANFILO Saul Facility:[facility] End: 11-11-2022 [facility] Start: 11-11-2022 Telephone encounter Panfilo Oreilly MD [facility] [place] Work Phone: Comment on above: Results Start: 11-08-2022 ambulatory PANFILO Saul Facility:[facility] End: 11-09-2022 [facility] Start: 11-08-2022 ambulatory AURELIANO Droys Facility:[facility] End: 11-08-2022 [facility] Start: 11-08-2022 Patient encounter Panfilo Arciniega [facility] [place] End: 11-08-2022 procedure Work Phone: Comment on above: Strep pharyngitis (Primary D x); Reactive airway disease with acute exacerbation, unspecified asthma severity, unspecified whether persistent; Tremor; LOGAN treated with BiPAP; Morbid obesity (HCC); Type 2 diabetes mellitus wit h diabetic polyneuropathy, with long-term current use of insulin (HCC); Episodic lightheadedness; Dehydration Start: 11-06-2022 ambulatory PANFILO Saul Facility:[facility] End: 11-06-2022 [facility] Start: 11-06-2022 Patient encounter Anita Mosley [facility] End: 11-06-2022 procedure Work Phone: Comment on above: Onychomycosis (Primary Dx); Pain in toe of left foot; Pain in toe of right foot; Other diabetic neurological complication associated with type 2 diabetes mellitus (HCC); Hyperkeratosis; Chronic venous insufficiency ; Diminished pulses in lower e xtremity Start: 11-05-2022 Telephone encounter Panfilo Oreilly MD [facility] Work Phone: [place] Comment on above: Orders Start: 10-30-2022 ambulatory [facility] ic End: 10-30-2022 Work Phone: Comment on above: Type 2 diabetes mellitus wit h diabetic polyneuropathy, with long-term current use of insulin (HCC) (Primary Dx); History of tobacco use Start: 10-30-2022 Telemedicine [facility] End: 10-30-2022 consultation with Work Phone: patient Start: 10-22-2022 Telephone encounter Panfilo Oreilly MD [facility] Work Phone: [place] Comment on above: Patient Update Start: 10-21-2022 Telephone encounter Panfilo Oreilly MD [facility] Work Phone: [place] Comment on above: Results (No answer and VM no t set up. YuanV message sent to request patient call in for results on Lab and xray.) Start: 10-18-2022 ambulatory HODANASAD Dorys Facility:[facility] End: 10-18-2022 [facility] Start: 10-18-2022 ambulatory [facility] Facility:[facility] End: 10-18-2022 [facility] Start: 10-18-2022 Telephone encounter Panfilo Oreilly MD [facility] [place] Work Phone: Comment on above: Prescription Clarification Start: 10-18-2022 ambulatory [facility] Facility:[facility] End: 10-18-2022 [facility] Start: 10-18-2022 Patient encounter Panfilo Oreilly MD [facility] End: 10-18-2022 procedure Work Phone: Comment on [...] Refill Panfilo Oreilly MD [facility] [place] Work Phone: Comment on above: Refill Request Start: 09-09-2022 Telephone encounter Panfilo Oreilly MD [facility] Medicine Work Phone: [place] Comment on above: Medication Problem Start: 09-05-2022 ambulatory PANFILO OREILLY Facility :[facility] End: 09-06-2022 Hospital Start: 08-27-2022 Refill Panfilo Oreilly MD [facility] [place] Work Phone: Comment on above: Refill Request Start: 08-01-2022 ambulatory [facility] End: 08-02-2022 Work Phone: Comment on above: Diabetes resources Type 2 diabetes mellitus wit h diabetic polyneuropathy, with long-term current use of ins ulin (HCC) (Primary Dx) Start: 08-01-2022 E-mail encounter from [facility] [place] caregiver Work Phone: Start: 08-01-2022 Telemedicine [facility] [place] End: 08-01-2022 consultation with Work Phone: patient Start: 07-24-2022 Refill Panfilo Oreilly MD [facility] Work Phone: [place] Comment on above: Refill Request Start: 07-23-2022 ambulatory [facility] Facility:[facility] End: 07-23-2022 [facility] Start: 07-23-2022 Patient encounter Berenice Bauman MD General Surgery End: 07-23-2022 procedure Work Phone: Comment on above: Screening for colon cancer ( Primary Dx); Chest pain, unspecified type ; Morbid obesity (HCC) Start: 07-15-2022 [facility] Facility:[facility] End: 07-15-2022 [facility] Start: 07-11-2022 Telephone encounter [facility] Work Phone: Comment on above: Appointment Start: 07-09-2022 Telephone encounter Panfilo Oreilly MD [facility] Medicine Work Phone: [place] Comment on above: Medication Problem (Patient requesting all RX's for medications and diabetic supplies be sent to [facility] [place].) Start: 07-09-2022 ambulatory [facility] Facility [facility] End: 07-09-2022 Hospital Start: 07-05-2022 Refill Hallie Martinez APRN.CNP [facility] [place] Work Phone: Comment on above: Refill Request; [...] 06/18/22) Start: 2022 Telephone encounter Robert Sanchez [facility] Work Phone: Comment on above: Missed Appointment Refill Request Start: 06-13-2022 Telephone encounter Robert Sanchez [facility] Work Phone: Comment on above: Missed Appointment Erroneous encounter-disregar d Start: 06-05-2022 Refill Panfilo Oreilly MD [facility] [place] Work Phone: Comment on above: Refill Request Start: 05-29-2022 ambulatory Panfilo O[facility]illy MD [facility] Main Work Phone: [place] Start: 05-02-2022 ambulatory Robert Sanchez [facility] Med [facility] ic End: 05-03-2022 Work Phone: Comment on above: Type 2 diabetes mellitus wit h diabetic polyneuropathy, with long-term current use of ins ulin (HCC) (Primary Dx) Start: 05-02-2022 Telemedicine Robert Sanchez [facility] [place] End: 05-02-2022 consultation with Work Phone: patient Start: 05-01-2022 Refill Panfilo Oreilly MD [facility] Medicine Work Phone: [place] Comment on above: Refill Request Start: 04-09-2022 Telephone encounter Panfilo Oreilly MD [facility] Medicine Work Phone: [place] griffin Comment on above: Patient Update Start: 04-03-2022 Telephone encounter Robert Sanchez [facility] Work Phone: Comment on above: Diabetes Start: 03-29-2022 Telephone encounter Robert Sanchez [facility] Work Phone: Comment on above: Medication Problem Start: 03-28-2022 Telephone encounter Panfilo Oreilly MD [facility] Medicine Work Phone: [place] Comment on above: Patient Update; Medication R equest Start: 03-28-2022 ambulatory PANFILO OREILLY Facility :[facility] End: 03-29-2022 Hospital Start: 03-28-2022 ambulatory [facility] End: 03-28-2022 Work Phone: Comment on above: Type 2 diabetes mellitus wit h diabetic polyneuropathy, with long-term current use of ins ulin (HCC) (Primary Dx) Start: 03-28-2022 Telemedicine [facility] [place] End: 03-28-2022 consultation with Work Phone: patient Start: 03-20-2022 Telephone encounter Hallie Martinez SYSTEMS ARCHITECTURE ANALYST.NIKIA [facility] Work Phone: [place] Comment on above: Results Start: 03-19-2022 ambulatory HALLIE PODLOGAR Facility:[facility] End: 03-19-2022 Hospital Start: 03-19-2022 ambulatory HALLIE PODLOGAR Facility:[facility] End: 03-20-2022 Hospital Start: 03-19-2022 Patient encounter Hallie Carmonalogericka SYSTEMS ARCHITECTURE ANALYST.NIKIA [facility] [place] End: 03-19-2022 procedure Work Phone: Comment on above: Type 2 diabetes mellitus wit h diabetic polyneuropathy, with long-term current use of insulin (HCC) (Primary Dx); Dysuria; LOGAN (obstructive sleep apnea ); Essential hypertension; Chronic respiratory failure with hypoxia (HCC); Hyperlipidemia, unspecified hyperlipidemia type Start: 03-05-2022 Telephone encounter Panfilo Guzman [facility] Work Phone: [place] Comment on above: insurance requests change in sulin Start: 01-29-2022 Telephone encounter Panfilo Guzman [facility] Work Phone: [place] Comment on above: Patient Request Start: 01-25-2022 Telephone encounter Hallie Martinez SYSTEMS ARCHITECTURE ANALYST.NIKIA [facility] Work Phone: [place] Comment on above: medication instructions Patient Request Medication Question Start: 01-23-2022 Telephone encounter Hallie Martinez SYSTEMS ARCHITECTURE ANALYST.NIKIA [facility] Work Phone: [place] Comment on above: Orders Start: 01-14-2022 Refill Panfilo Oreilly MD [facility] [place] Work Phone: Comment on above: Refill Request (SEE RX NOTES ) Start: 06-19-2021 Telephone encounter [facility] Work [facility]: [place] Comment on above: Insurance Authorization (Neno Gore) Procedures Date Procedure Procedure Detail Performing Clin ician Start: 02-18-2023 Cul bact xcpt urine Tino Oreilly MD blood/stool aerobic isol Work Ph one: Start: 12-25-2022 Antibody screen PANFILO BARRAZA Comment on above: Order Comment: Specimen Type : BLOOD SPECIMENOrdering Facility: [facility] Address: [address] [place] [id number] Performed By: #### TSCR #### [facility] BLOOD BANKCLIA [id number] [place] [address] [facility] Start: 07-15-2022 Echocardiography PANFILO VU Start: 03-19-2022 Urnls dip stick/tablet rgnt auto w/o Hallie Podlogar SYSTEMS ARCHITECTURE ANALYST.DITCHING MACHINE ENGINEER microscopy Work Phone: Start: 02-14-2021 Adult depression screening assessment Panfilo Oreilly MD Work Phone: Start: 10-09-2017 Mammography Panfilo barraza MD Work Phone: Plan of Treatment Date Care Activity Detail Author Start: PNEUMOCOCCAL (3 - PPSV23 PNEUMOCOCCAL (3 - [facility] 2042 if available, else PCV20) PPSV23 if available, else PCV20) Start: PNEUMOCOCCAL (3 - PPSV23 PNEUMOCOCCAL (3 - [facility] 2042 or PCV20) PPSV23 or PCV20) Start: Urine microalbumin DTAP,TDAP,TD (2 - Td or [facility] 07-01-2027 profile Tdap) Start: ANNUAL PCP TEAM CHRONIC ANNUAL PCP TEAM CHRONIC [facility] 02-19-2024 DISEASE VISIT DISEASE VISIT Start: BP CONTROLLED (<130/80) BP CONTROLLED (<130/80) [facility] 02-19-2024 Start: Hepatitis B surface LDL CHOLESTEROL [facility] 02-19-2024 antibody level Start: BP CONTROLLED (<130/80) BP CONTROLLED (<130/80) [facility] 01-13-2024 Start: 3 comp foot exam DIABETIC FOOT EXAM [facility] 12-25-2023 completed Start: ANNUAL PCP TEAM CHRONIC ANNUAL PCP TEAM CHRONIC [facility] 11-08-2023 DISEASE VISIT DISEASE VISIT Start: BP CONTROLLED (<130/80) BP CONTROLLED (<130/80) [facility] 11-08-2023 Start: ANNUAL PCP TEAM CHRONIC ANNUAL PCP TEAM CHRONIC [facility] 10-18-2023 DISEASE VISIT DISEASE VISIT Start: BP CONTROLLED (<130/80) BP CONTROLLED (<130/80) [facility] 10-18-2023 Start: 3 comp foot exam DIABETIC FOOT EXAM [facility] 07-09-2023 completed Start: ANNUAL PCP TEAM CHRONIC ANNUAL PCP TEAM CHRONIC [facility] 07-09-2023 DISEASE VISIT DISEASE VISIT Start: Hepatitis B screening URINE [facility] 07-09-2023 ALBUMIN:CREATININE RATIO Start: Hemoglobin HBA1C [facility] 05-21-2023 A1c/Hemoglobin.total in Blood Start: HPV TESTING HPV TESTING [facility] 04-30-2023 Start: PAP TESTING PAP TESTING [facility] 04-30-2023 Start: ANNUAL PCP TEAM CHRONIC ANNUAL PCP TEAM [facility] 03-19-2023 DISEASE VISIT DISEASE VISIT Start: Hemoglobin HBA1C [facility] 02-09-2023 A1c/Hemoglobin.total in Blood Start: Hemoglobin HBA1C [facility] 02-06-2023 A1c/Hemoglobin.total in Blood Start: 3 comp foot exam DIABETIC FOOT EXAM [facility] 01-23-2023 completed Start: ANNUAL PCP TEAM CHRONIC ANNUAL PCP TEAM CHRONIC [facility] 01-23-2023 DISEASE VISIT DISEASE VISIT Start: BP CONTROLLED (<130/80) BP CONTROLLED (<130/80) [facility] [facility] Start: BP CONTROLLED (<130/80) BP CONTROLLED (<130/80) [facility] 12-12-2022 Start: Hepatitis B surface LDL CHOLESTEROL [facility] 12-12-2022 antibody level Start: DEPRESSION ASSESSMENT DEPRESSION ASSESSMENT [facility] 12-01-2022 Start: 11-18-2022 Comprehensive metabolic COMP METABOLIC PANEL C [facility] End: 01-18-20231999 panel - Serum or Lab Routine KERRY (acute Wor k Phone: Plasma kidney injury) (HCC) Expected: 11/18/2022, Expires: 01/18/2023 Comment on above: Expected: 11/18/2022, s: 01/18/2023 Start: 10-31-2022 Basic metabolic BASIC METABOLIC PNL Lab [facility] End: 12-31-20221999 panel - Serum Routine Type 2 diabetes Work Phone: or Plasma mellitus with diabetic polyneuropathy, with long-term current use of insulin (HCC) Expected: 10/31/2022, Expires: 12/31/2022 Comment on above: Expected: 10/31/2022, s: 12/31/2022 Start: 10-09-2022 Hemoglobin HBA1C [facility] A1c/Hemoglobin.total in Blood Start: 08-01-2022 Hepatitis B screening URINE [facility] ALBUMIN:CREATININE RATIO Start: 08-01-2022 Influenza vaccination INFLUENZA (#1) [facility] Start: 2022 COLOGUARD (FIT-DNA) COLOGUARD (FIT-DNA) [facility] Start: 2022 Colonoscopy COLONOSCOPY [facility] Start: 2022 COLORECTAL CANCER SCREENING COLORECTAL CANCER [facility] SCREENING Start: [address] COLONOGRAPHY [facility] Start: 2022 FECAL OCCULT BLOOD FECAL OCCULT BLOOD [facility] Start: 2022 SIGMOIDOSCOPY SIGMOIDOSCOPY [facility] Start: 06-18-2022 Hemoglobin [facility] End: 08-18-2022 A1c/Hemoglobin.total in Blood Comment on above: Expected: 06/18/2022, s: 08/18/2022 Start: 03-19-2022 Comprehensive metabolic 2000 panel [facility] End: 05-19-2022 - Serum or Plasma Work Phone: Comment on above: Expected: 03/19/2022, s: 05/19/2022 Start: 03-19-2022 Hemoglobin A1c/Hemoglobin.total in [facility] End: 05-19-2022 Blood Work Phone: Comment on above: Expected: 03/19/2022, s: 05/19/2022 Start: 03-15-2022 COVID-19 VACCINE (3 - COVID-19 VACCINE (3 - [facility] Booster for Damir Booster for Damir series) series) Start: 03-12-2022 Hemoglobin HBA1C [facility] A1c/Hemoglobin.total in Blood Start: 02-14-2022 Adult depression DEPRESSION SCREENING [facility] screening assessment Start: 12-01-2021 DEPRESSION ASSESSMENT DEPRESSION ASSESSMENT [facility] Start: 10-09-2018 Mammography MAMMOGRAM [facility] Start: 08-31-2016 TWO PNEUMOVAX 5 YEARS TWO PNEUMOVAX 5 YEARS [facility] APART PRIOR TO AGE 65 APART PRIOR TO AGE 65 (#2) (#2) Start: 1996 HEPATITIS B (1 of 3 - HEPATITIS B (1 of 3 - [facility] Risk 3-dose series) Risk 3-dose series) Start: 1987 Hepatitis C antibody, DILATED RETINAL EXAM [facility] confirmatory test Start: 1977 HEPATITIS B (1 of 3 - HEPATITIS B (1 of 3 - [facility] 3-dose series) 3-dose series) Bacteria identified in ABSCESS AND WOUND [facility] Wound by Culture CULTURE WITH GRAM STAIN Work Ph one: Microbiology Routine Abscess of groin, left Non-healing open wound of left groin, initial encounter 02/18/2023 12:05 PM EDT ECG COMPLETE ECG COMPLETE ECG [facility] End: 10-18-2023 Routine Acute diastolic Work Rupali ne: CHF (congestive heart failure) (HCC) Other chest pain 1 Occurrences starting 10/18/2022 until 10/18/2023 Comment on above: 1 Occurrences starting 10/18 until 10/18/2023 EPIL EEG ROUTINE EPIL EEG ROUTINE [facility] End: 11-08-2023 NEUROLOGY TACO Tremor 1 Work Rupali ne: Occurrences starting 11/08/2022 until 11/08/2023 Comment on above: 1 Occurrences starting 11/08 until 11/08/2023 NM CARDIAC PERF NM CARDIAC PERF [facility] End: 11-17-2023 STRESS/PHARM STRESS/PHARM Radiology Work Phon e: TACO Acute diastolic CHF (congestive heart failure) (HCC) 1 Occurrences starting 10/18/2022 until 11/17/2023 Comment on above: 1 Occurrences starting 10/18 until 11/17/2023 OCCULT BLD EXAM-DIAG OCCULT BLD EXAM-DIAG Microb iology [facility] Routine Screening for colon Work Phone: cancer Ordered: 07/23/2022 Comment on above: Ordered: 07/23/2022 PVR ANK PRESS TAY PVR ANK PRESS TAY [facility] End: 11-06-2023 VAS LAB Vascular Lab Routine Work Phone: Onychomycosis Other diabetic neurological complication associated with type 2 diabetes mellitus (HCC) Diminished pulses in lower extremity 1 Occurrences starting 11/06/2022 until 11/06/2023 Comment on above: 1 Occurrences starting 11/06 until 11/06/2023 Screening mammography SHERYL SCREENING [facility] End: 06-28-2023 bi 2-view breast inc Radiology Routine Work Phon e: cad Encounter for screening mammogram for breast cancer 1 Occurrences starting 05/29/2022 until 06/28/2023 Comment on above: 1 Occurrences starting 05/29 until 06/28/2023 UA DIP, URINE (POC) UA DIP, URINE (POC) Lab Rout robbie [facility] Dysuria Ordered: 03/19/2022 Work Phone: Comment on above: Ordered: 03/19/2022 [facility] [place] [facility] Immunizations Immunization Date Immunization Notes Care Provider Facility 12-12-2021 influenza, injectable, Panfilo nuñez MD [facility] quadrivalent, contains Work Phone: preservative 08-31-2020 influenza, injectable, Panfilo nuñez MD [facility] quadrivalent, contains Work Phone: preservative 08-31-2020 pneumococcal conjugate Panfilo nuñez MD [facility] vaccine, 13 valent Work Phone: 11-12-2019 influenza, injectable, Panfilo nuñez MD [facility] quadrivalent, contains Work Phone: preservative 12-16-2018 influenza, seasonal, Panfilo Oreilly MD [facility] injectable, preservative Work Phone: free 09-11-2017 influenza, seasonal, Panfilo Oreilly MD [facility] injectable Work Phone: 09-11-2017 influenza, seasonal, Panfilo Oreilly MD [facility] injectable, preservative Work Phone: free 07-01-2017 tetanus toxoid, reduced Panfilo chadwick MD [facility] diphtheria toxoid, and Work Phone: acellular pertussis vaccine, adsorbed 12-20-2013 influenza, seasonal, Panfilo Oreilly MD [facility] injectable Work Phone: 12-20-2013 influenza, seasonal, Panfilo Oreilly MD [facility] injectable, preservative Work Phone: free 08-31-2011 pneumococcal Panfilo Oreilly MD [facility] polysaccharide vaccine, Work Phone: 23 valent Payers Date Payer Category Payer Medicaid [employer] [id number] [facility] MEDICAID [id number] 2022-Present [phone] [address] [place] [address] Medicaid 2022 Medicaid [employer] [id number] [employer] [id number] 2022-2022 [id number] [phone] [address] [place] [address] Medicaid 2022 Medicare [id number] 2022 Medicare [id number] 2022 Medicare [id number] 2022 Medicaid MEDICAID [facility] MEDICAID [id number] 2022-2022 [id number] [address] [place] [address] Medicaid 2021 Medicare MEDICARE MEDICARE A AND B [id number] 2021-2021 [id number] [address] [address] [place] [address] Medicare Social History Date Type Detail Facility Start: 08-25-2019 Tobacco smoking status [facility] End: 11-06-2022 [facility] History of tobacco use Cigarette Smoker [facility] End: 09-08-2017 Start: 08-25-2019 Cigarettes smoked current 1 [facility] End: 01-13-2023 (pack per day) - Reported Start: 08-25-2019 Tobacco use and exposure Smokeless tobacco Aris reeder [employer] End: 01-13-2023 non-user Start: 12-12-2021 Alcohol intake Current drinker of [place] Juan José nesbitt End: 11-06-2022 alcohol (finding) Start: 04-03-2017 History SDOH Alcohol rarely [facility] Comment Start: 1975 Sex Assigned At Not on file [facility] Start: 01-06-2022 Exposure to SARS-CoV-2 Not sure [facility] End: 10-18-2022 (event) Start: 01-23-2022 Tobacco smoking status Ex-smoker [facility] End: 01-13-2023 [facility] Start: 01-23-2022 Tobacco Comment d/c x2 wks [facility] End: 07-09-2022 Start: 04-03-2017 Tobacco Comment failed patches in the [facility] past History of tobacco use Current smoker [facility] Start: 07-22-2022 Exposure to SARS-CoV-2 Yes [facility] End: 08-01-2022 (event) Start: 08-23-2022 Exposure to SARS-CoV-2 Unable to assess [facility] End: 09-02-2022 (event) Start: 10-17-2022 History SDOH Alcohol 1 [facility] End: 01-15-2023 Frequency Start: 10-17-2022 History SDOH Alcohol Std 0 [facility] End: 11-02-2022 Drinks Start: 10-17-2022 History SDOH Social 5 [facility] End: 01-15-2023 Connections Phone Start: 10-17-2022 History SDOH Social 2 [facility] End: 01-15-2023 Connections Get Together Start: 10-17-2022 History SDOH Social 7 [facility] End: 11-02-2022 [facility] Living Start: 10-17-2022 History SDOH Physical 3 [facility] End: 11-02-2022 Activity DPW Start: 10-17-2022 History SDOH Financial 4 [facility] Start: 01-14-2023 Alcohol intake Ex-drinker (finding) [facility] End: 02-18-2023 Medical Equipment Procedure Code Equipment [...] migh t be different from the original. [facility] Notes 02/26/23 2;44 PM - 2:47 PM LS W called the pt. regarding the custom bow maker requested orders for her to get a DETENTION SERGEANT to assist with bathing. The pt. stated she did not want a DETENTION SERGEANT once a week and wants her A olena hours under Waiver. GRINDER HARDBOARD discussed that Brandy Ross [facility] Exercise Scientist with [facility] discussed her getting the DETENTION SERGEANT until they find an Aide under Waiver. The pt. state d her daughter can assist her with bathing. The pt. stated that she received a phone call from [facility] regarding they needed the measurement for the lift chair. GRINDER HARDBOARD di scussed that Brandy was senin g the measurements to Elaine and GRINDER HARDBOARD could follow- up. The pt. stated Elaine was waiting on an Email with the measurements. The pt. supportive of that. The pt. to call GRINDER HARDBOARD with any needs. 02/26/23 2:49 PM - 2:51 PM LS W called [facility] Exercise Scientist with [facility] and left her a message that GRINDER HARDBOARD spoke to the pt. and the custom bow maker messaged the D r. regarding the pt. getting a DETENTION SERGEANT for bathing assist. The pt. does not want the DETENTION SERGEANT and stated her daughter could assist her with bathing. The pt. stated that [facility] called her and needing the measurements for her to get her lift chair. The pt. waiting to get the Aide under Waiver. GRINDER HARDBOARD left her name and phone number. documented in this encounter 02-26-2023 Note [facility] 02-25-2023 Miscellaneous Formatting of this note migh t be different from the original. [facility] Notes 02/25/23 2:49 PM - 2:54 PM JORGE LUIS W received a phone call back from Brandy [facility] Waiver Exercise Scientist with [facility] on Aging. She stated she is following-up wi th the regarding if ordsigifredo r faxed to a [employer] for the pt. to get a scooter. She stated she saw the pt. yesterday and got the measurements for the pt. to get a lif chair and is working with [facility] for the lift chair. The pt. receives Home Delivered Meals. The pt. to get an ER Medical Alert and Brandy stated they had been trying to reach the pt. and she informed the pt. to answer her phone . Brandy is trying to find an Aide for the pt. She stated she told the pt. to ask about getting a DETENTION SERGEANT to assist with bathing until she could get an Aide under Waiver. PER informed Brandy that PER will atilio k with the custom bow maker r egarding a DETENTION SERGEANT for the pt. PER will continue to coordinate with Brandy as needed. 02/25/23 3:03 PM PER Emailed Bharat Gardner RN Case Manager - Aung, the pt. Macario Overton is on Waiver and her Waiver Exercise Scientist asked about the pt. getting a DETENTION SERGEANT until she would get an Aide under Waiver. They cannot find a n Aide for the pt. yet. Thanks, documented in this encounter 02-25-2023 Miscellaneous Formatting of this note migh t be different from the original. [facility] Notes 02/25/23 10:00 AM - 10:06 AM GRINDER HARDBOARD called [facility] and spoke to Fabienne Stevens regarding who the pt.'s Waiver Exercise Scientist was and she stated Brandy Ross with [facility] on Aging # [phone]. Fabienne stated she could transfer GRINDER HARDBOARD to Brandy. GRINDER HARDBOARD was transferred and GRINDER HARDBOARD left [facility] Ross [facility] Exercise [facility] a message that the pt. was active with [facility] 02[facility] for Nursing. GRINDER HARDBOARD stated she was calling to coordinate thw pt.'s care and her services in the home. The pt. asking about an Aide. power wheelchair and lift chair. GRINDER HARDBOARD left her name and phone number for Brandy to call GRINDER HARDBOARD back. 02/25/23 10:06 AM - 10:11 AM GRINDER HARDBOARD called the pt. regarding GRINDER HARDBOARD called her [facility] Waiver Exercise Scientist Brandy Ross and left her a message. The pt. stated that Brandy came to see her yesterday. S he stated that Brandy is tryi ng to find her an Aide. GRINDER HARDBOARD asked about the power wheelchair and lift chair. The pt. stated Brandy is looking into equipment for her, also. GRINDER HARDBOARD asked the pt. if she received H ome Delivered Meals and she stated that she did. GRINDER HARDBOARD asked the pt. if she had an ER Medical Alert and she stated that Brandy was ordering her one. GRINDER HARDBOARD asked the pt. if she was new on Waiver and she state d she has been on Waiver for a couple of months. GRINDER HARDBOARD asked the pt. if she had needed transportation to medical appointments. She stated if her daughter does not take her she uses transportation under he r [employer]. GRINDER HARDBOARD p rovided the pt. with her name and phone number to call with any needs. GRINDER HARDBOARD will follow-up with her. 02/25/[address] Fela Oreilly - GRINDER HARDBOARD called the pt. regarding GRINDER HARDBOARD called her [facility] Exercise Scientist Brandy Ross and left her a message. The pt. stated that Brandy came to see her yesterday. She stat ed that Brandy is trying to find her an Aide. GRINDER HARDBOARD asked about the power wheelchair and lift chair. The pt. stated Brandy is looking into equipment for her, also. GRINDER HARDBOARD asked the pt. if she received Home Del ivered Meals and she stated that she did. GRINDER HARDBOARD asked the pt. if she had an ER Medical Alert and she stated that Brandy was ordering her one. GRINDER HARDBOARD asked the pt. if she was new on Waiver and she stated she h as been on Waiver for a couple of months. GRINDER HARDBOARD asked the pt. if she had needed transportation to medical appointments. She stated if her daughter does not take her she uses tr ansportation under her [facility] Medicaid. GRINDER HARDBOARD provided the pt. with her name and phone number to call with any needs. GRINDER HARDBOARD will follow-up with her. Brandy Ross [facility] Exercise Scientist w [facility] on Aging [phone]. Thank You, documented in this encounter 02-24-2023 Note [facility] 02-24-2023 Note HNO ID: [id number] [facility] Author: Panfilo Oreilly MD [facility] and Service: ? Author Type: Physician Type: Progress Notes Filed: 02/24/2023 8:05 AM Note Text: Reviewed. Needs to schedule TCM appointm ent still. 02-24-2023 Miscellaneous Formatting of this note migh t be different from the original. [facility] Notes Reviewed. Formatting of this note might be differe nt from the original. FYI: Brandy, Exercise Scientist [facility] called to let you know pt returned home on 02-20-23 from [facility] and has skilled care thru [facility] for wound care management. Keyonna Gross LPN documented in this encounter 02-23-2023 Miscellaneous Formatting of this note migh t be different from the original. [facility] Notes SITUATION: Custodial SOC visit co mpleted today. Friend and [...] POC, visit set, and refe rral to SERVICE REPRESENTATIVE, SN. See intervention summary for education d etails and skills performed. Plan of care and visit frequ ency established with patient and plan of care agreed upon. Patient demonstrated a need for further skilled SN services for chronic disease management & education, medication education, wound/skin care and safety. RECOMMENDATION: Visit Frequency: 2w2, 1w7 Need for additional services: Patient ag reeable to SERVICE REPRESENTATIVE referrals. Additional concerns to be followed up on : NONE Next visit to focus on (be specific): wo udn care, DM, oxygen, edema documented in this encounter 02-21-2023 Note [facility] 02-21-2023 History of Present [facility] illness Narrative TRANSITIONAL CARE MANAGEMENT (TCM) COMMUNITY MONITORING PROGRAM Provider Action/FYI: Navigation Team Please assist with schedulin g TCM Hospital discharge follow up. TCM eligible through 03/06. Thank you [facility]- Friday Wound care: L groin wash wound [...] to discharge instructions. SUMMARY: Pt discharged from [facility] on 01/30 02/20. Admitted for: Cellulitis Contact made with patient: Yes Hi my name is Marixa braun RN and I am calling from the [facility] on behalf of your PCP, Panfilo Oreilly [...] will s end your request to a forging press operator who will contact and assist you with that appointment. This will give you an opportunity to ask any questions or address any concerns you may have with your PCP. Inform the patient that if t hey have any questions or concerns prior to that appointment, to call their PCP's office right away. ACTION TAKEN: Patient desires an appointme nt - Routed to [facility] [[id number]] for scheduling telehealth visit (telephonic, virtual visit, [...] TCM Home Visit Referral Source of Stratification: [facility] Hospital Admission Status: Discharged Readmission Risk Score: 25 PAMELA Score: 4 Patient meets program referral criteria: No Patient does not qualify for High Risk TCM Home Visit program due to: Discharged home, does not meet program criteria Carlos Cline RN February 21, 2023 9:01 AM [facility] Provider Action/FYI: Outreach attempt #1 Unable to reach patient. Voicemail has not been set up. Unable to leave message. Will try again later Pt has no upcoming future appts SUMMARY: Pt discharged from [facility] on 01/30 02/20. Admitted for: Cellulitis SUMMARY OF WHAT HAPPENED DEREK BUSTAMANTE WAS IN THE HOSPITAL: Ms. Overton presented to an outside facility with purulent drainage from her wound. WBC was 11, and CT showed left upper thigh thickening and ulcerat ion with small amount of res idual subcutaneous gas. She was transferred to [facility] and surgery was consulted. Wound appears [...] migh t be different from the original. [facility] Notes Robert from [facility] called and reports they received the orders and demographic sheet. Faxing over last OV note to fax # [phone]. documented in this encounter 02-21-2023 Note [facility] 02-21-2023 Note [facility] 02-21-2023 Miscellaneous Formatting of this note migh t be different from the original. [facility] Notes Yes, will sign. Formatting of this [...] clinicians may als o obtain orders from [facility] Virtualist Providers Thank you and we would be happy to answe r any questions. Geeta Munguia LPN 02/20/2023 3:40 PM documented in this encounter 02-21-2023 History of Present [facility] illness Narrative TRANSITION CARE MANAGEMENT (TCM) PHARMACY [...] name and . Summary: -Pt discharged from [facility] on 02/20/23. -Medication review done: Ken [...] idual subcutaneous gas. She was transferred to [facility] and surgery was consulted. Wound appears [...] once daily. flash glucose scanning reade r (StreamupSTYLE DOMENICO 14 DAY READER) 1 Device four [...] 50 points >150; TDD 150 units) Insulin Gary, Disposable, (BD ULTRA-FINE GABINO PEN NEEDLE) 32 [...] for 10 doses. E-rx to DDM Confirms pick remover, taking as directed Per discharge summary: Ms. Overton was started on an tibiotics for cellulitis and will continue on Bactrim and should continue a 5 day course at discharge WALKER ROLLATOR SEAT WITH 6 WHEELS - RE D Patient requires large seat Preferred pharmacy: [facility] - [place] [address] - [address] [facility] [phone] [address] [facility] [address] [facility] [address] - [place] [id number] - [address] [facility] [phone] [address] [facility] [address] [id number] [place] [address] - [address] [facility] [phone] [id number] [address] [facility] [address] [facility] [address] [place] [phone] Estimated Creatinine Clearance: 196.2 mL /min (based [...] migh t be different from the original. [facility] Notes Tried reaching patient, cordelia le to [...] time. documented in this encounter 02-18-2023 Note [facility] 02-18-2023 History of Present [facility] illness Narrative Chief Complaint No chief complaint on file. HPI Macario Overton is a 47 year old female who presents here today for Hospital Discharge Follow up. Accompanied today by daughter and grand daughter. Patient admitted to [facility] fro m 12/25 to 01/01 and [...] She was discharged in stable condition w [facility] wound care and follow up in [...] ordered as pt was activ e with [employer] for HHC and [facility] [...] in ~ 1 weeks time. 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 Left, small lesion on CT Anxiety Cholecystitis s/p cholecystectomy Diabetes mellitus without mention of com plication Diabetic neuropathy ([facility]) Seeing Neurology Diastolic heart failure ([facility]) GERD (gastroesophageal reflux disease) History of abnormal cervical Pap smear History of tobacco use Hyperlipidemia Insomnia Microalbuminuria Morbid obesity ([facility]) Narcotic abuse ([facility]) Non-STEMI (non-ST elevated myocardial in farction) ([facility]) 2/2 respiratory illness LOGAN (obstructive sleep apnea) using CPAP, Dr. Dumont Pulmonary embolism ([facility] [facility]) Seasonal allergies Unspecified essential hypertension Previous Surgical [...] by mouth once daily. flash glucose sensor (AudienceE DOMENICO 14 DAY SENSOR) kit 1 Each [...] wheezing/shortness of breath. Use over 5-15minutes. Insulin Gary, Disposable, (BD ULTRA-FINE GABINO PEN NEEDLE) 32 [...] which included preparing to see the patient, [id number] patient care, completing clinical documentation, obtaining and/or reviewing separately obtained history, performing a medically appropriate examination, counseling and educating the patient/family/caregiver, and ordering medications, tests, or procedures. Panfilo Oreilly MD documented in this encounter 02-04-2023 Miscellaneous Formatting of this note migh t be different from the original. [facility] Notes Josie, a [facility] nurse with [facility] calling to request Physical Therapy evaluation order for patient. States patient recently moved into a trailer and is having some difficulty getting around a nd also difficulty with endurance. Repor ts patient is on oxygen. Please call Josie back at [phone]. Thank you. documented in this encounter 02-03-2023 Note [facility] 02-03-2023 History of Present [facility] illness Narrative Per [facility] Eligibility report: patient meets PIRC criteria: MV >= 72 hours MICU stay. Discharge date prior to 01/06/2023 (01/30/2023 dashboard update); not contacted/enrolled in the PIRC Program for this 12/25-01/01/2023 [place] admission. PIR Enrollment Status PIRC Call Attempt None Enrolled in PIRC Program? No - Other documented in this encounter 02-03-2023 Miscellaneous Formatting of this note is d ifferent from the original. [facility] Notes Last appt: 11/08/22 - Next scheduled [...] migh t be different from the original. [facility] Notes Phoned patient and she is ab [...] slot. documented in this encounter 01-28-2023 Note [facility] 01-28-2023 History of Present [facility] illness Narrative TRANSITION CARE MANAGEMENT (TCM) FOLLOW-UP NOTE Provider Action/MARSHALLI Called for TCM. No answer at this time. Voicemail box not set up, unable to leav e message. PCP 01/24 cancelled- rescheduled to 02/03 Patient identified by name and date of b irth: NO- no answer Summary: Pt discharged from [facility] on 01/16/23. Admitted for: Purulent drainage from wou nds. Concerns: No answer, unable to leave message [employer] plan for next outreach: Will follow up next week ORACIO Education Ordered -: No Signature Raquel Payne RN January 28, 2023 documented in this encounter 01-21-2023 Miscellaneous Formatting of this note migh t be different from the original. [facility] Notes Zhane notified of providers message. Sandra Potts LPN Formatting of this note might be differe nt from the original. OK to resume prison. Keep f/u a ppointment as scheduled. Formatting of this note might be differe nt from the original. Zhane from [facility] tenders calls to report that patient discharged from hospital on 01/16/2023. Zhane asking if it is ok to resume prison services with patient tomorrow 01/22/2023. Please review and advise, Georgina Samayoa RN documented in this encounter 01-20-2023 Miscellaneous Formatting of this note migh t be different from the original. [facility] Notes Pt given message, states she can't take ibuprofen and will continue with the tylenol. Margarita TOWNSEND Formatting of this note might be differe nt from the original. I&D tay groin abscesses on 1 01/14/23- pt requesting refill on oxycodone for dressing changes. Uses pharmacy listed in chart. Margarita TOWNSEND documented in this encounter 01-20-2023 Note [facility] 01-17-2023 Note [facility] 01-17-2023 Note [facility] 01-17-2023 Note [facility] 01-17-2023 History of Present [facility] illness Narrative TRANSITION CARE MANAGEMENT (TCM) PHARMACY [...] name and . Summary: -Pt discharged from [facility] on 01/16/23. -Medication review done: Ken [...] Care ordered as pt was active with [employer] for [facility] and [facility] A[facility] (prior [...] once daily. flash glucose scanning reade r (StreamupSTYLE DOMENICO 14 DAY READER) 1 Device four [...] Date Value 11/11/2022 10.1 12/12/2021 10.0 Insulin Gary, Disposable, (BD ULTRA-FINE GABINO PEN NEEDLE) 32 [...] days. Taking as prescribed without any issues [facility] - Dispensed potassium chloride 20 mEq [...] days. Taking as prescribed without any issues [facility] - Dispensed WALKER ROLLATOR SEAT WITH 6 WHEELS - RE D Patient requires large seat Preferred pharmacy: [facility] [address] - [place] [address] - [address] - [phone] [address] [facility] [address] e- [employer] [facility] [place] - [address] [place] [address] - [address] [facility] - [phone] [address] [facility] [address] e- [id number] [place] [address] - [address] [facility] - [phone] [address] [facility] [address] [facility] [address] [address] Estimated Creatinine Clearance: 124.1 mL /min (based [...] migh t be different from the original. [facility] Notes Reviewed and agree. Formatting of this note might be differe nt from the original. Carolee from [facility] and states that patient was directly admitted by her surgeon after appointment on 01/13/2023. Patient currently is in [facility]. When patient gets discharged asking fo r discharge paperwork to me faxed to . Georgina Samayoa, RN documented in this encounter 01-16-2023 Note [facility] 01-15-2023 Note [facility] 01-14-2023 Note [facility] 01-14-2023 Miscellaneous Formatting of this note migh t be different from the original. [facility] Notes Patient did not show up for [...] message. documented in this encounter 01-14-2023 Note [facility] 01-14-2023 Note [facility] 01-14-2023 History of Present [facility] illness Narrative TRANSITION CARE MANAGEMENT (TCM) FOLLOW-UP NOTE Provider Action/FYI Chart reviewed. Pt readmitte d to [facility] 01/13/23 for perineal wound infection. Name removed from Care Team d/t readmission. Signature iMmi Crowley RN January 14, 2023 documented in [...] as of this encounter (statuses as of 01/16/2023)[facility] 01-13-2023 History of Past illness Narrative Problem Noted Date Resolved Date Necrotizing fasciitis 01/13/2023 01/16/2023 Overview:Formatting of this note might b e different from the original. Pt did not have necrotizing fasciitis du ring this current hospitalization. Acute cholecystitis 11/06/2007 11/20/2021 documented as of this encounter (statuses as of 01/17/2023)[facility] 01-13-2023 History of Past illness Narrative Problem Noted Date Resolved Date Necrotizing fasciitis 01/13/2023 01/16/2023 Overview:Formatting of this note might b e different from the original. Pt did not have necrotizing fasciitis du ring this current hospitalization. Acute cholecystitis 11/06/2007 11/20/2021 documented as of this encounter (statuses as of 01/21/2023)[facility] 01-13-2023 History of Past illness Narrative Problem Noted Date Resolved Date Necrotizing fasciitis 01/13/2023 01/16/2023 Overview:Formatting of this note might b e different from the original. Pt did not have necrotizing fasciitis du ring this current hospitalization. Acute cholecystitis 11/06/2007 11/20/2021 documented as of this encounter (statuses as of 01/21/2023)[facility] 01-13-2023 History of Past illness Narrative Problem Noted Date Resolved Date Necrotizing fasciitis 01/13/2023 01/16/2023 Overview:Formatting of this note might b e different from the original. Pt did not have necrotizing fasciitis du ring this current hospitalization. Acute cholecystitis 11/06/2007 11/20/2021 documented as of this encounter (statuses as of 01/28/2023)[facility] 01-13-2023 History of Past illness Narrative Problem Noted Date Resolved Date Necrotizing fasciitis 01/13/2023 01/16/2023 Overview:Formatting of this note might b e different from the original. Pt did not have necrotizing fasciitis du ring this current hospitalization. Acute cholecystitis 11/06/2007 11/20/2021 documented as of this encounter (statuses as of 01/30/2023)[facility] 01-13-2023 History of Past illness Narrative Problem Noted Date Resolved Date Necrotizing fasciitis 01/13/2023 01/16/2023 Overview:Formatting of this note might b e different from the original. Pt did not have necrotizing fasciitis du ring this current hospitalization. Acute cholecystitis 11/06/2007 11/20/2021 documented as of this encounter (statuses as of 02/03/2023)[facility] 01-13-2023 History of Past illness Narrative Problem Noted Date Resolved Date Necrotizing fasciitis 01/13/2023 01/16/2023 Overview:Formatting of this note might b e different from the original. Pt did not have necrotizing fasciitis du ring this current hospitalization. Acute cholecystitis 11/06/2007 11/20/2021 documented as of this encounter (statuses as of 02/03/2023)[facility] 01-13-2023 History of Past illness Narrative Problem Noted Date Resolved Date Necrotizing fasciitis 01/13/2023 01/16/2023 Overview:Formatting of this note might b e different from the original. Pt did not have necrotizing fasciitis du ring this current hospitalization. Acute cholecystitis 11/06/2007 11/20/2021 documented as of this encounter (statuses as of 02/20/2023)[facility] 01-13-2023 History of Past illness Narrative Problem Noted Date Resolved Date Necrotizing fasciitis 01/13/2023 01/16/2023 Overview:Formatting of this note might b e different from the original. Pt did not have necrotizing fasciitis du ring this current hospitalization. Acute cholecystitis 11/06/2007 11/20/2021 documented as of this encounter (statuses as of 02/21/2023)[facility] 01-13-2023 History of Past illness Narrative Problem Noted Date Resolved Date Necrotizing fasciitis 01/13/2023 01/16/2023 Overview:Formatting of this note might b e different from the original. Pt did not have necrotizing fasciitis du ring this current hospitalization. Acute cholecystitis 11/06/2007 11/20/2021 documented as of this encounter (statuses as of 02/21/2023)[facility] 01-13-2023 History of Past illness Narrative Problem Noted Date Resolved Date Necrotizing fasciitis 01/13/2023 01/16/2023 Overview:Formatting of this note might b e different from the original. Pt did not have necrotizing fasciitis du ring this current hospitalization. Acute cholecystitis 11/06/2007 11/20/2021 documented as of this encounter (statuses as of 02/21/2023)[facility] 01-13-2023 History of Past illness Narrative Problem Noted Date Resolved Date Necrotizing fasciitis 01/13/2023 01/16/2023 Overview:Formatting of this note might b e different from the original. Pt did not have necrotizing fasciitis du ring this current hospitalization. Acute cholecystitis 11/06/2007 11/20/2021 documented as of this encounter (statuses as of 02/24/2023)[facility] 01-13-2023 History of Past illness Narrative Problem Noted Date Resolved Date Necrotizing fasciitis 01/13/2023 01/16/2023 Overview:Formatting of this note might b e different from the original. Pt did not have necrotizing fasciitis du ring this current hospitalization. Acute cholecystitis 11/06/2007 11/20/2021 documented as of this encounter (statuses as of 02/25/2023)[facility] 01-13-2023 History of Past illness Narrative Problem Noted Date Resolved Date Necrotizing fasciitis 01/13/2023 01/16/2023 Overview:Formatting of this note might b e different from the original. Pt did not have necrotizing fasciitis du ring this current hospitalization. Acute cholecystitis 11/06/2007 11/20/2021 documented as of this encounter (statuses as of 02/25/2023)[facility] 01-13-2023 History of Past illness Narrative Problem Noted Date Resolved Date Necrotizing fasciitis 01/13/2023 01/16/2023 Overview:Formatting of this note might b e different from the original. Pt did not have necrotizing fasciitis du ring this current hospitalization. Acute cholecystitis 11/06/2007 11/20/2021 documented as of this encounter (statuses as of 02/26/2023)[facility] 01-13-2023 History of Past illness Narrative Problem Noted Date Resolved Date Necrotizing fasciitis 01/13/2023 01/16/2023 Overview:Formatting of this note might b e different from the original. Pt did not have necrotizing fasciitis du ring this current hospitalization. Acute cholecystitis 11/06/2007 11/20/2021 documented as of this encounter (statuses as of 02/26/2023)[facility] 01-13-2023 Miscellaneous NotesTelephone Encounter - Lula Sarmiento LPN - 01/13/2023 1:04 PM EST Records from [facility] forwarded to Carolee as requested. Telephone Encounter - Sandra Potts LPN - 01/08/2023 4:24 PM EST Discharge summary requested from [facility] medical records at this time. Sandra Potts LPN Telephone Encounter - Irena Bland LPN - 01/06/2023 4:51 PM EST Carolee R with [facility] calls to report that pt was discharged from [facility] on 01/01/23. Carolee is asking for discharge summary to be faxed to her when office receives it. . Irena Bland LPN documented in this encounterKind[facility]-2023 Miscellaneous Notes Telephone Encounter - Lula Sarmiento LPN - 01/07/2023 11:12 AM EST Patient has follow up visit 01/14/23 for 40 min-will see her as Hosp follow up and reschedule RTN follow up. Telephone Encounter - Panfilo Oreilly MD - 12/27/2022 8:01 AM EST Reviewed and agree. When she is finally discharged from [facility], will need f/u in 1 week for 40 minute OV. Telephone Encounter - Christi Barney RN - 12/26/2022 6:54 PM EST [facility] floor care technician calling to let PCP know patient is in [facility] ICU with soft tissue infection. This nurse cancelled patient's hospital discharge follow up appointment from 12/20 hospital discharge which was scheduled for 12/27/22 with PCP. Chrsiti Barney, RN documented in this encounterKindred [facility]02-06-2023 Miscellaneous Notes Telephone Encounter - Loretta Peres [...] day. uses discount drug in chart. Margarita TOWNSNED documented in this encounterKindred Hospital [facility]02-03-2023 Miscellaneous Notes Telephone Encounter - Sandra Potts LPN - 01/03/2023 2:09 PM EST [facility] 11/08/2022 NOV 01/14/2023 Sandra Potts LPN Telephone Encounter - Vanessa Ignacio [facility] - 01/03/2023 8:30 AM EST Patient has [...] this request. No need to notify patient. [facility] documented in this encounterKind[facility]-02-2023 Miscellaneous Notes Telephone Encounter - CRISTY Fish [...] RPh 01/02/2023 2:42 PM documented in this encounterKind[facility] of Present illness Tommy Crowley RN - 01/02/2023 11:19 AM EST TRANSITIONAL CARE MANAGEMENT (TCM) COMMUNITY MONITORING PROGRAM Provider Action/FYI: [facility] with patient, states pain is tolerable with pain medication, no sob, no N/V, tolerating diet, drinking fluids, blood glucose this morning was 128, staying with her niece for a week, is doing better. SUMMARY: Pt discharged from [facility] on 01/01/23. Admitted for: Necrotizing soft tissue infection Contact made with patient: Yes Hi my name is Mimi Crowley RN and I am calling from the [facility] on behalf of your PCP, Panfilo Oreilly [...] to speak with a social work steam plant operator to help give you support for [...] I will send your request to a forging press operator who will contact and assist you with [...] TCM Home Visit Referral Source of Stratification: [facility] Hospital Admission Status: Discharged Readmission Risk Score: 37 PAMELA Score: 4 Patient meets program referral criteria: No Patient does not qualify for High Risk TCM Home Visit program due to: Discharged home, does not meetprogram criteria Mimi Crowley RN January 02, 2023 11:25 AM documented in this encounterKindred Hospital [facility]02-02-2023 History of Present illness Wil Kilpatrick, [facility] - 01/02/2023 10:24 AM EST TRANSITION CARE [...] . Summary: -Pt discharged from [facility] on 01/01/23. -Medication review done: Partial medication [...] mouth once daily. flash glucose scanning reader (StreamupSTYLE DOMENICO 14 DAY READER) 1 Device four times daily. Taking as prescribed without any issues Discontinued: 12/31/2022 1:30 PM flash glucose sensor (FREESTYLE DOMENICO 14 DAY SENSOR) kit 1 Each once daily. Use 1 device for up to 14 days to monitor sugars 4 times per day. [employer] furosemide (LASIX) 20 mg tablet Take 1 tablet by mouth twice daily. Take BID with 80 mg lasix to equal 100 mg BID furosemide (LASIX) 40 mg tablet Take 1-2 tablets BID for lower extremity edema Discontinued: 12/30/2022 8:05 AM gabapentin (NEURONTIN) 800 mg tablet TAKE 1 TABLET BY MOUTH THREE TIMES A DAY eTransfer Course Computer System ([place]) [place] insulin glargine U-300 conc (TOUJEO MAX U-300 SOLOSTAR) 300 unit/mL (3 mL) inpn Inject 105 Units subcutaneously twice daily. insulin lispro (HUMALOG KWIKPEN INSULIN) 100 unit/mL Inject 50 units plus sliding scale three times daily before meals (Sliding scale: 2 units for every 50 points >150; TDD 150 units) Hemoglobin A1C (%) Date Value 11/11/2022 10.1 12/12/2021 10.0 Insulin Gary, Disposable, (BD ULTRA-FINE GABINO PEN NEEDLE) 32 [...] for pain for up to 5 days. [facility] [place] Counseled on AEs and [...] RED Patient requires large seat Preferred pharmacy: [facility] [place] [facility] [id number] [place] [address] - [address] [phone] [address] [place] [address] e- [id number] [place] [address] - [address] [facility] - [phone] [address] [facility] [address] [facility] [address] - [place] [address] - [address] - [phone] [address] [place] [address] Estimated Creatinine Clearance: 128.2 mL/min (based on SCr of 0.9 mg/dL). Estimated Glomerular Filtration Rate (mL/min/1.73m ) Date Value 01/01/2023 81 eGFR- (no units) Date Value 01/23/2022 >60 Additional follow up: Next 5 Appointments Date and Time Provider Department Dept Phone 01/02/2023 2:00 PM Robert [facility] [phone] 01/14/2023 11:00 AM Panfilo Oreilly [facility] [phone] Interventions Made: Patient education/Medication counseling Pharmacist Recommendations Made None Care Coordination: None at this time Time spent on patient: 15-30 minutes Brissa Kilpatrick RPh January 02, 2023 10:25 AM documented in this encounterKindred Hospital [facility]ima02-01-2023 [facility]02-01-2023 [facility]01-31-2023 Miscellaneous Notes Telephone Encounter - Diana Mackenzie MACHINE WIPER - 12/31/2022 1:26 PM EST Patient has [...] you. Diana Mackenzie LPN documented in this encounterKindred Hospital [facility]ima01-31-2023 [facility]01-30-2023 [facility]01-29-2023 [facility]01-28-2023 [facility]01-28-2023 NoteHNO ID: [id number] Author: Interface Note Service: ? Author Type: ? Type: Progress Notes Filed: 12/28/2022 4:21 AM Note Text: Epic Scheduled Downtime: 12/28/2022 1:00:00 AM to 12/28/2022 3:56:00 [facility] Miscellaneous NotesTelephone Encounter - Silvino Martinez LPN - 12/27/2022 3:46 PM EST Patient phones requesting refills as follows: Requested Prescriptions Pending Prescriptions Disp Refills gabapentin (NEURONTIN) 800 mg tablet [Pharmacy Med Name: Gabapentin 800MG TABS] 90 tablet 2 Sig: TAKE 1 TABLET BY MOUTH THREE TIMES A DAY Please review and advise. Silvino Martinez LPN documented in this encounterKindred Hospital Lima01-27-2023 [facility]01-26-2023 [facility]01-26-2023 [facility]01-25-2023 [facility]01-25-2023 [facility]01-25-2023 [facility]01-25-2023 History of Present illness NarrativeDakraig Key APRN.NIKIA - 12/25/2022 2:22 AM EST Images from the original note were not included. Critical Care Transport Note Patient Name: Macario Overton Service Date: 12/25/2022 Referring Physician: Job Accepting Physician: Delfino Referring Facility: [facility] Accepting Facility: [facility] SUBJECTIVE/CHIEF COMPLAINT: left thigh abscess REASON FOR [...] DM2, LOGAN, and NSTEMI. She presented to [facility] ED on 12/25/2022 for evaluation of left [...] higher level of surgical intervention notavailable at [place]. At this time, the physician managing the patient requested transfer to [facility] for tertiary and/or quaternary services unavailable at the referring facility. Patient condition at time ofexam was: Acutely ill and emergent surgical intervention. Due to the unique circumstances of the patient, it was determined that this was the closest, most appropriate facility by referring physician. The physician managing the patient requested the [facility] Critical Care Transport Team transport and treat the patient for the purpose of tertiary care, evaluation, and management of her surgical condition(s). Air medical transport was requested to reduce the [id number] time, 20 minutes by air vs. 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 Left, small lesion on CT Anxiety Cholecystitis s/p cholecystectomy Diabetes mellitus without mention of complication Diabetic neuropathy ([facility]) Seeing Neurology Diastolic heart failure ([facility]) GERD (gastroesophageal reflux disease) History of abnormal cervical Pap smear History of tobacco use Hyperlipidemia Insomnia Microalbuminuria Morbid obesity ([facility]) Narcotic abuse ([facility]) Non-STEMI (non-ST elevated myocardial infarction) ([facility]) 2/2 respiratory illness LOGAN (obstructive sleep apnea) using CPAP, Dr. Dumont Pulmonary embolism ([facility]) Seasonal allergies Unspecified essential hypertension PAST SURGICAL [...] 60 tablet^Rfl: 2 flash glucose scanning reader (StreamupSTYLE DOMENICO 14 DAY READER)^1 Device four times [...] daily with breakfast.^Disp: 30 tablet^Rfl: 5 Insulin Gary, Disposable, (BD ULTRA-FINE GABINO PEN NEEDLE) 32 [...] For this reason she will transfer to [facility] for emergent OR. Gangrene to left thigh [...] VS en route - expedite transfer to [facility] for further intervention The transport was completed without significant incident or change in the patient's status. The patient was transported to the [facility] by [employer] (Helicopter) for tertiary and/or quaternary evaluation and management of her Emergent Surgical condition(s). Upon arrival to the receiving facility, a tjpf-[id number] report was given to bedside nursing staff in ED and Resident / PA / DIRECTOR ORANGE: Dr. Kelley . Patient care was transferred. [...] [place] APRN.NIKIA Acute Care Nurse Practitioner [facility] Critical Care Transport Team documented in this encounterKindred Hospital [facility]ima01-24-2023 Miscellaneous Notes Telephone Encounter - Lula Sarmiento LPN - 12/24/2022 6:25 PM EST Patient stated she will go to [facility]. PCP updated. Telephone Encounter - Panfilo [...] just ate two bologna sandwiches within the [id number] hour. Ate usual food amounts today. Pt [...] PCP can advise her or Robert Sanchez [facility]. Explained that message would be sent to Dr. Oreilly for review but will also forward to Robert. Please call pt with advise. Thank you. documented in this encounterKindred Hospital [facility]ima01-13-2023 Miscellaneous Notes Telephone Encounter - Robertlara Frostronan [facility] - 12/13/2022 9:08 AM EST PharmD returned [...] Provider: PANFILO OREILLY Ordering User: ROBERT SANCHEZ [facility] Telephone Encounter - Christi Barney RN - [...] know. Christi Barney RN documented in this encounterKindred Hospital [facility]ima01-12-2023 Miscellaneous Notes Telephone Encounter - Irina Christie [...] and advise. Irina Soriano documented in this encounterKindred Hospital [facility]ima01-05-2023 Miscellaneous Notes Telephone Encounter - Robert Sanchez [...] to do so. Will send strips to [facility] at her request. Robert Sanchez PharmD, [facility] Primary Care Clinical Pharmacist documented in this encounterKindred Hospital [facility]ima12-28-2022 Miscellaneous Notes Telephone Encounter - Annie Neville [...] Thank you. Annie Neville documented in this encounterKindred Hospital [facility]ima12-12-2022 Miscellaneous Notes Telephone Encounter - Mariam Meredith [...] function returns to normal. 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/2019 Left, small lesion on CT Anxiety Cholecystitis s/p cholecystectomy Diabetes mellitus without mention of complication Diabetic neuropathy ([facility]) Seeing Neurology Diastolic heart failure ([facility]) GERD (gastroesophageal reflux disease) History of abnormal cervical Pap smear History of tobacco use Hyperlipidemia Insomnia Microalbuminuria Morbid obesity ([facility]) Narcotic abuse ([facility]) Non-STEMI (non-ST elevated myocardial infarction) ([facility]) 2/2 respiratory illness LOGAN (obstructive sleep apnea) using CPAP, Dr. Dumont Pulmonary embolism ([facility]) Seasonal allergies Unspecified essential hypertension Previous Surgical [...] tablet by mouth daily with breakfast. Insulin Gary, Disposable, (BD ULTRA-FINE GABINO PEN NEEDLE) 32 [...] bedtime as needed. flash glucose scanning reader (StreamupSTYLE DOMENICO 14 DAY READER) 1 Device four times daily. fenofibrate nanocrystallized (TRICOR) 145 mg tablet Take 1 tablet by mouth once daily. flash glucose sensor (StreamupSTYLE DOMENICO 14 DAY SENSOR) kit 1 Each [...] Abs Lymph 1.00 - 4.00 k/uL 1.57 [place]% % 4.3 Abs [place] <0.87 k/uL 0.38 E[place]% % 2.8 Abs [...] smokingand schedule follow up visit with her air conditioning manager at [facility]. 3. Tremor - ICD9: 781.0, ICD10: R25.1 [...] which included preparing to see the patient, [id number] patient care, completing clinical documentation, obtaining and/or reviewing separatelyobtained history, performing a medically appropriate examination, counseling and educating the patien t/family/caregiver, and ordering medications, tests, or procedures. 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 Left, small lesion on CT Anxiety Cholecystitis s/p cholecystectomy Diabetes mellitus without mention of complication Diabetic neuropathy ([facility]) Seeing Neurology Diastolic heart failure ([facility]) GERD (gastroesophageal reflux disease) History of abnormal cervical Pap smear History of tobacco use Hyperlipidemia Insomnia Microalbuminuria Morbid obesity ([facility]) Narcotic abuse ([facility]) Non-STEMI (non-ST elevated myocardial infarction) ([facility]) 2/2 respiratory illness LOGAN (obstructive sleep apnea) using CPAP, Dr. Dumont Pulmonary embolism ([facility]) Seasonal allergies Unspecified essential hypertension Current Outpatient [...] tablet by mouth daily with breakfast. Insulin Gary, Disposable, (BD ULTRA-FINE GABINO PEN NEEDLE) 32 [...] bedtime as needed. flash glucose scanning reader (StreamupSTYLE DOMENICO 14 DAY READER) 1 Device four [...] Objective: Patient presents to clinic ambulating in [facility] Constitutional: Pt is a well developed 47 [...] Skin is ruborous b/l. Non-Invasive Vascular Laboratory [facility] Lower Extremity Arterial Physiology Study Bilateral/Complete Date [...] Care Saba Brenner LPN documented in this encounterKindred Hospital Lima12-07-2022 InstructionsPatient InstructionsMadustin Mosley - 11/06/2022 11:39 AM [...] (or decreased sensation in your feet) a bag bleacher should always cut your toenails. Be Careful [...] Go to your health care provider or bag bleacher to treat these conditions. documented in this encounterKindred Hospital Lima12-06-2022 Miscellaneous Notes Telephone Encounter - Alanna Michael RN - 11/05/2022 4:28 PM EST Pt and Clarisa with [employer] called and is notified of providers message. Pt voices understanding. Alanna Michael RN Telephone Encounter - Panfilo Oreilly MD - 11/05/2022 4:07 PM EST Will discuss at upcoming OV. Telephone Encounter - Alanna Michael RN - 11/05/2022 3:16 PM EST Clarisa Quintero CM with [facility] called in and was check on order [...] Please call and advise. documented in this encounterKindred Hospital [facility]ima11-30-2022 [facility]11-30-2022 [facility]11-30-2022 History of Present illness Margarita Suero [facility] - 10/30/2022 1:00 PM EST Primary Care Pharmacy Visit CC (Reason for Consult): Diabetes Goal: A1c < 7% Collaborating Provider: Dr. Oreilly Last Provider Visit: 10/18/22 Macario Overton is a 47 year old female presenting for follow up visit by telephone. Patient consents to pharmacy collaborative practice agreement. Patient is presenting today for follow up pharmacotherapy management appointment for diabetes. Admitted to [facility] form 09/22 to 09/24 for acute on [...] GLYCEMIC CONTROL: SMBG s: patient has a Doubloonstyle domenico, but sensor fell off a few [...] mellitus without mention of complication Diabetic neuropathy ([facility]) Seeing Neurology Diastolic heart failure ([facility]) GERD (gastroesophageal reflux disease) History of abnormal cervical Pap smear History of tobacco use Hyperlipidemia Insomnia Microalbuminuria Morbid obesity ([facility]) Narcotic abuse ([facility]) Non-STEMI (non-ST elevated myocardial infarction) ([facility]) 2/2 respiratory illness LOGAN (obstructive sleep apnea) using CPAP, Dr. Dumont Pulmonary embolism ([facility]) Seasonal allergies Unspecified essential hypertension ALLERGIES Allergen [...] mouth once daily. flash glucose scanning reader (StreamupSTYLE DOMENICO 14 DAY READER) 1 Device four [...] 50 points >150; TDD 150 units) Insulin Gary, Disposable, (BD ULTRA-FINE GABINO PEN NEEDLE) 32 [...] polyneuropathy, with long-term current use of insulin ([facility]) - ICD9: 250.60, 357.2, V58.67, ICD10: E11.42, [...] of instructions. Tessa Suero RPh, PharmD PGY1 Deputy Probation Officer The majority of the pharmacy visit (> 50%) was spent counseling and/or coordinating care for the patient. interaction: telephonic time was 20 minutes. Robert Sanchez RPh - 10/30/2022 1:00 PM EST The patient's case was discussed with the pharmacy retail support specialist who interviewed the patient. Walton elements of history confirmed during office visit. The progress note reflects my input and comments. Robert Sanchez PharmD, [facility] Primary Care Clinical Pharmacist documented in this encounterKindred Hospital Lima11-22-2022 Miscellaneous Notes Telephone Encounter - Hallie Martinez [...] home. Requesting provider submit a claim to [facility] for patient to have a scooter. Clarisa reports that it will probably be denied butdaphnie would like to get the process started. Not pended. Patient has follow up appointment 11/08/2022. Marianne Grier RN documented in this encounterKindred Hospital Lima11-22-2022 Miscellaneous Notes Telephone Encounter - Mariam Meredith [...] lasix as discussedin office. Telephone Encounter - Llua Sarmiento LPN - 10/21/2022 12:36 PM EST ----- Message from Panfilo Oreilly MD sent at 10/21/2022 9:43 AM EST ----- Normal/stable labs. BNP from [facility] resulted at 11 which is normal. Recommend she continue higher dose lasix, low sodium diet, wear CPAP nightly as discussed. F/u with cardiology. Call if leg swelling notimproving with lasix or with weight increase as discussed in office. documented in this encounterKindred Hospital Lima11-18-2022 Miscellaneous Notes Telephone Encounter - Sandra Potts LPN - 10/18/2022 3:45 PM EST [facility] telephoned and made aware of TAMRA, DITCHING MACHINE ENGINEER message. Read back. Will dispense for patient. Sandra Potts LPN Telephone Encounter - Hallie Martinez APRN.CNP - 10/18/2022 2:56 PM EST Fine to dispense 81 and that can be for one month. Hallie Martinez APRN.CNP Telephone Encounter - Tri Sorensen RN - 10/18/2022 2:46 PM EST [facility] calling regarding recent script for nicotine patches for patient. Pharmacy states thepacks come in quantity of 81 only and to specify how many days provider would like patient to take this medication. Please contact [facility]. Thank you. documented in this encounterKindred Hospital [facility]ima11-18-2022 [facility]11-18-2022 [facility]11-18-2022 InstructionsPatient InstructionsChbashir Oreilly MD - 10/18/2022 11:53 AM EST Check daily weight and call with 2-3 lbs weight gain in 24 hours, or 5 lbs total. documented in this encounterKindred Hospital [facility]ima11-18-2022 History of Present illness NarrativeChbashir Oreilly MD - 10/18/2022 10:29 AM EST Chief Complaint Patient presents with: Hospital Follow Up HPI Macario Overton is a 47 year old female who presents here today for Hospital Discharge Follow up.. Patient was admitted to [facility] form 09/22 to 09/24 for acute on [...] Patient does not have follow up with air conditioning manager and has not seen cardiology recently for [...] tablet by mouth daily with breakfast. Insulin Gary, Disposable, (BD ULTRA-FINE GABINO PEN NEEDLE) 32 [...] bedtime as needed. flash glucose scanning reader (StreamupSTYLE DOMENICO 14 DAY READER) 1 Device four [...] - ECG COMPLETE 2. COPD with exacerbation ([facility]) - ICD9: 491.21, ICD10: J44.1 Continue oxygen [...] LOZENGE Panfilo Oreilly MD documented in this [facility]11-04-2022 Miscellaneous Notes Telephone Encounter - Diana [...] you. Diana Mackenzie LPN documented in this encounterKindred Hospital [facility]ima11-01-2022 Miscellaneous Notes Telephone Encounter - Keyonna Gross LPN - 10/01/2022 9:02 AM EDT Spoke with pt and information listed below given. Pt verbalizes understanding. Pt has picked up the Trulicity. Keyonna Gross LPN Telephone Encounter - Robert Sanchez RPh - 09/09/2022 3:36 PM EDT director of student life called around to different pharmacies, learned [facility] [address] can get her Trulicity in stock. [...] of the above. Thanks! Robert Sanchez, PharmD, [facility] Primary Care Clinical Pharmacist Telephone Encounter [...] do. Keyonna Gross LPN documented in this encounterKindred Hospital Lima10-10-2022 Miscellaneous Notes Telephone Encounter - Sandra Potts LPN - 09/09/2022 3:57 PM EDT Looks like Robert Sanchez, [facility] sent a new script to [facility]. [facility] telephoned and stated they do have the medication in stock and script will be ready for pick remover around 11am today. Patient telephonedand made aware, agreeable to [facility]. Sandra Potts LPN Telephone Encounter - Panfilo Oreilly MD - 09/09/2022 2:08 PM EDT Can this be transferred to another pharmacy? Telephone Encounter - Jessica Croft LPN - 09/09/2022 2:04 PM EDT [facility] is on backorder, Patient is completely out of medication x1 week, asking if there is an alternative for Patient. Jessica Croft LPN documented in this encounterKindred Hospital Lima10-06-2022 [facility]09-27-2022 Miscellaneous NotesTelephone Encounter - Lula Cameron LPN - 08/27/2022 2:01 PM EDT Pt calling for refill. HUMBLE: 07/09/22 NOV: 10/18/22 Last Refill: 02/28/22 #90 0 refills Lula Cameron LPN documented in this encounterKindred Hospital Lima09-01-2022 [facility]09-01-2022 History of Present illness NarrativeEmlara Sanchez [facility] - 08/01/2022 1:00 PM EDT Primary Care [...] eating a lot of fruit. Has the Altia Domenico, said the sensor has fallen off [...] not present Adherence: denies missed doses Pharmacy: [facility] Rx coverage: Medicaid Affordability: no issues Diabetes supplies: [email or web address] Domenico CGM Organization System: pill box ACTIVE PROBLEM LIST Calculus of Gallbladder Without Mention of Cholecystitis Or Obstruction Anxiety Logan (Obstructive Sleep Apnea) Essential Hypertension Gerd (Gastroesophageal Reflux Disease) Morbid Obesity ([facility]) Microalbuminuria Insomnia History of Tobacco Use Hyperlipidemia Diabetic Neuropathy ([facility]) Type 2 Diabetes Mellitus With Diabetic Polyneuropathy, With Long-Term Current Use of Insulin ([facility]) Mgus (Monoclonal Gammopathy of Unknown Significance) Acute Pulmonary Embolism Without Acute Cor Pulmonale ([facility]) Adrenal Incidentaloma ([facility]) Obesity, Class III, BMI >= 40 PAST MEDICAL HISTORY Diagnosis Date Abscess of right groin 04/07/2014 Acute diastolic heart failure ([facility]) 01/2022 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[facility]) 07/2019 Left, small lesion on CT Anxiety Cholecystitis s/p cholecystectomy Diabetes mellitus without mention of complication Diabetic neuropathy ([facility]) Seeing Neurology Diastolic heart failure ([facility]) GERD (gastroesophageal reflux disease) History of abnormal cervical Pap smear History of tobacco use Hyperlipidemia Insomnia Microalbuminuria Morbid obesity ([facility]) Narcotic abuse ([facility]) Non-STEMI (non-ST elevated myocardial infarction) ([facility]) 2/2 respiratory illness LOGAN (obstructive sleep apnea) using CPAP, Dr. Dumont Pulmonary embolism ([facility]) Seasonal allergies Unspecified essential hypertension ALLERGIES Allergen [...] 50 points >150; TDD 150 units) Insulin Gary, Disposable, (BD ULTRA-FINE GABINO PEN NEEDLE) 32 [...] niece help her get set up with [employer] ACEi/ARB for renal protection: yes, Scr and K+ sufficient Statin: yes, LFTs sufficient HbA1c: due 10/09 Patient is scheduled to see PCP on 10/18. Patient to have PharmD f/u on 09/05. Patient verbalized understanding of instructions. Robert Sanchez PharmD, [facility] Primary Care Clinical Pharmacist The majority of the pharmacy visit (> 50%) was spent counseling and/or coordinating care for the patient. interaction: telephonic time was 55 minutes. documented in this encounterKindred Hospital Lima09-01-2022 InstructionsPatient InstructionsRobert Sanchez RPh - 08/01/2022 1:00 [...] help you get set up with the [employer] account. If you did not get the email, please let me know. Start to review nutrition labels. Try to limit your carbohydrates to <30-45g per MEAL. Review thematerials I sent to you via [employer]. Try to incorporate more protein and fiber into your diet. Try switching to 1/2 bagel or to Bagel Thins. documented in this encounterKindred Hospital Lima08-25-2022 NoteF[facility]08-25-2022 History of Present illness Lewis Bauman [...] previous colonoscopy. She was recently evaluated at [facility] ED on 04/21/2022 for chest pain. [...] abuse (HCC) Non-STEMI (non-ST elevated myocardial infarction) ([facility]) 2/2 respiratory illness LOGAN (obstructive sleep apnea) using CPAP, Dr. Dumont Pulmonary embolism ([facility]) Seasonal allergies Unspecified essential hypertension PAST SURGICAL HISTORY Procedure Laterality Date ANALGESIA,EPIDURAL,LABOR & 1994 INCISION & DRAINAGE ABSCESS COMPLICATED/MULTIPLE 04/07/14 LAPS SURG CHOLECYSTECTOMY W/CHOLANGIOGRAPHY 11/04/2007 PAST SURGICAL HISTORY OF Left 2007 arthroscopic knee surgery PAST SURGICAL HISTORY OF 1995 LEEP Current Outpatient Medications Medication Sig Insulin Gary, Disposable, (BD ULTRA-FINE GABINO PEN NEEDLE) 32 [...] bedtime as needed. flash glucose scanning reader (StreamupSTYLE DOMENICO 14 DAY READER) 1 Device four [...] entered by the nurse and reviewed by nh Nursing Notes: Nadia Cagle 07/23/2022 10:34 AM [...] have offered referral to a larger hospital ([facility]) for screening colonoscopy Patient asks for alternatives for screening for colon cancer, and I have offered stool guaiac testing but told patient that this has to be done on a yearly basis. Patient states that she would prefer stool guaiac testing over going to [facility] for colonoscopy. I have ordered [...] Straightforward Berenice Bauman MD documented in this encounterKindred Hospital Lima08-24-2022 Miscellaneous Notes Telephone Encounter - Belem Romero [...] notify patient. Madelyn Estes documented in this encounterKindred Hospital Lima08-23-2022 Nurse Timbo Cagle - 07/23/2022 10:29 AM [...] Colonoscopy: Unknown Nadia Cagle documented in this encounterKindred Hospital Lima08-11-2022 Miscellaneous Notes Telephone Encounter - Robert Sanchez RPh - 07/11/2022 9:21 AM EDT Called patient to schedule f/up appt for DM mngt, CGM interpretation, and med review. Scheduled for 08/01. Billy MarionD, BCPS Primary Care Clinical Pharmacist documented in this encounterKindred Hospital Lima08-09-2022 NoteF[facility]08-09-2022 Miscellaneous NotesTelephone Encounter - Sandra Potts LPN - 07/09/2022 1:20 PM EDT Patient aware. Sandra Potts LPN Telephone Encounter - Panfilo Oreilly MD - 07/09/2022 1:17 PM EDT Rx sent as requested. Telephone Encounter - Lula Sarmiento LPN - 07/09/2022 11:37 AM EDT Patient is changing her primary pharmacy to [facility] and is requesting all Rx's for medications and diabetic supplies forwarded to them. documented in this encounterKindred Hospital Lima08-09-2022 Note[facility]08-05-2022 Miscellaneous NotesTelephone Encounter - Diana Mackenzie [...] you. Diana Mackenzie LPN documented in this encounterKindred Hospital Lima08-03-2022 Miscellaneous Notes Telephone Encounter - Belem Romero [...] schedule. Belem Romero Ma documented in this encounterKindred Hospital Lima07-29-2022 Miscellaneous NotesTelephone Encounter - Belem Romero Ma [...] patient. Kimber Moore Pss documented in this encounterKindred Hospital Lima07-29-2022 Miscellaneous Notes Telephone Encounter - Lula Sarmiento LPN - 06/28/2022 11:41 AM EDT Phoned patient to schedule OV follow up as she is past due. Patient had an appointment on 06/18/22 but was a no show. documented in this encounterKindred Hospital Lima07-28-2022 Miscellaneous NotesTelephone Encounter - Robert Sanchez RPh - 2022 11:45 AM EDT Patient no-showed to PharmMonae visit today. Unable to reach via phone and VM not set up yet. Will try reaching out at a later date to reschedule. Robert Sanchez PharmD, [facility] Primary Care Clinical Pharmacist Ronal Paz [facility] documented in this encounterKindred Hospital Lima07-14-2022 Miscellaneous NotesTelephone Encounter - Robert Sanchez RPh - 06/13/2022 11:17 AM EDT Patient is a no show for PharmD visit today. Called patient, she is still out of town, had a car issue and just got fixed today. She apologized for missing and agreed to reschedule for next week on 06/20. Robert Sanchez PharmD, [facility] Primary Care Clinical Pharmacist Ronal Paz [facility] documented in this encounterKindred Hospital Lima07-06-2022 Miscellaneous NotesTelephone Encounter - Hallie Martinez APRN.CNP [...] you. Lashon Overton LPN documented in this encounterKindred Hospital Lima06-02-2022 [facility] 05-02-2022 History of Present illness NarrativeRobert [...] consumed sugar (cup of OJ and chewy [employer]), levels eventually went up to 90 mg/dL. [...] to [employer]. Leaving for vacation in [place] on Friday. Current DM Medications: Metformin ER [...] present Adherence: denies missed doses Pharmacy: [facility] [place] Rx coverage: Medicaid Affordability: no issues Diabetes supplies: [employer] CGM Organization System: pill box ACTIVE PROBLEM [...] mouth once daily. flash glucose scanning reader (StreamupSTYLE DOMENICO 14 DAY READER) 1 Device four [...] diet PharmD sent invite to link via Dataium. Patient to get account set up prior to next PharmD visit and have CGM downloaded the day prior HbA1c: due 06/18 Patient is scheduled to see DITCHING MACHINE ENGINEER on 06/18. Patient to have PharmD f/u on 06/06. Patient verbalized understanding of instructions. Robert Sanchez PharmD, [facility] Primary Care Clinical Pharmacist Ronal Paz [facility] The majority of the pharmacy visit (> 50%) was spent counseling and/or coordinating care for the patient. interaction: telephonic time was 30 minutes. documented in this encounterKindred Hospital Lima06-01-2022 Miscellaneous NotesTelephone Encounter - Hallie Martinez APRN.CNP [...] you. Georgina Samayoa RN documented in this encounterKindred Hospital Lima05-11-2022 Miscellaneous NotesTelephone Encounter - Panfilo Oreilly MD [...] have it sent to her pharmacy , [facility]. Patient has been identified by name and date of : Yes Pending Prescriptions Disp Refills GABAPENTIN 800 MG TABLET 90 tablet 0 Sig: Take 1 tablet by mouth three times daily for 30 days. RIKKI: No RX INSTRUCTIONS: Patient aware RX will be sent to pharmacy. No need to notify patient. Vanessa Ferrarisec documented in this encounterKindred Hospital Lima05-04-2022 Miscellaneous NotesTelephone Encounter - Robert Sanchez, [facility] - 04/03/2022 10:56 AM EDT PharmD called [...] office with any issues. Robert Sanchez PharmD, [facility] Primary Care Clinical Pharmacist Ronal Paz [facility] documented in this encounterKindred Hospital Lima04-29-2022 Miscellaneous NotesTelephone Encounter - Robert Sanchez RPh [...] questions andverbalized understanding. Leena Salinas PharmD PGY1 Deputy Probation Officer elephone Encounter - Leena Salinas RPh - [...] for insurance coverage. Leena Salinas PharmD PGY1 Deputy Probation Officer elephone Encounter - Georgina Samayoa RN - 03/29/2022 11:38 AM EDT Patient calls and states that provider had increased patient's insurance yesterday at appointment. Patient states that when she went to pick remover medication she was told that dosage is too high by pharmacist and insurance will not cover medication. Patient states that she may need a prior authorization. Please review and advise, Georgina Samayoa RN documented in this encounterKindred [facility]-28-[facility]22 Miscellaneous Notes Telephone Encounter - Gisele Dumas [...] if provider will send a medication to [facility] in [place] for her. Please call and advise. documented in this encounterKindred [facility]04-28-[facility] History of Present illness Kimo Sanchez RPh - 03/28/2022 10:30 AM EDT The patient's case was discussed with the pharmacy retail support specialist who interviewed the patient. Walton elements of history confirmed during office visit. The progress note reflects my input and comments. Robert Sanchez PharmD, [facility] Primary Care Clinical Pharmacist Carmel PHILLIPS [facility] Elizabeth Salinas RPh - 03/28/2022 10:30 AM [...] mid-200s mg/dL. Patient was able to obtain Altia Domenico CGM and was using. Patient recently placed new sensor on arm, but it was accidentally knocked offa couple days later. Not currently using CGM or checking BG. Patient states she never received invite for Dataium to connect with PharmD to view CGM [...] getting from pharmacy later today Pharmacy: [facility] in [place] Rx coverage: Medicaid Affordability: no issues Diabetes supplies: [employer] CGM Organization System: pill box ACTIVE PROBLEM [...] right groin 04/07/2014 Acute diastolic heart failure ([facility]) 01/2022 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[facility]) 07/2019 Left, small lesion on CT Anxiety Cholecystitis s/p cholecystectomy Diabetes mellitus without mention of complication Diabetic neuropathy ([facility]) Seeing Neurology GERD (gastroesophageal reflux disease) History of abnormal cervical Pap smear History of tobacco use Hyperlipidemia Insomnia Microalbuminuria Morbid obesity ([facility]) Narcotic abuse ([facility]) Non-STEMI (non-ST elevated myocardial infarction) ([facility]) 2/2 respiratory illness LOGAN (obstructive sleep apnea) using CPAP Pulmonary embolism ([facility]) Seasonal allergies Unspecified essential hypertension Past medical, [...] mouth once daily. flash glucose scanning reader (StreamupSTYLE DOMENICO 14 DAY READER) 1 Device four [...] 261 12/12/2021 The 10-year ASCVD risk score (Columbusnikole SURESH Jr., et al., 2013) is: 2.6% [...] Tresiba to lower BG; patient can connect Dataium profile to PharmD for PharmD to review [...] 2000 mg daily Advised patient to call [employer] (telephone number on back of reader) to inquire about getting a replacement sensor PharmD will re-send invite to patient's email to connect on Dataium for CGM report sharing Patient to notify PharmD before next f/up visit if having any issues connecting on Dataium Recommended patient to reach out to PCP [...] understanding of instructions. Leena Salinas PharmD PGY1 Deputy Probation Officer The majority of the pharmacy visit (> 50%) was spent counseling and/or coordinating care for the patient. interaction: telephonic time was 26 minutes. documented in this encounterKindred Hospital [facility]ima04-20-2022 Miscellaneous Notes Telephone Encounter - Keyonna Gross LPN - 03/20/2022 11:04 AM EDT Spoke with pt and information listed below given. Pt verbalizes understanding. Transferred to forging press operator. Keyonna Gross LPN Telephone Encounter - Cass [...] months. Hallie Martinez APRN.CNP documented in this encounterKindred Hospital [facility]ima04-19-2022 NoteF[facility]04-19-2022 History of Present illness NarrativeHallie Martinez [...] water in it. Following with pulmonology in [place]. Continues to wear O2 continuously 2L at [...] right groin 04/07/2014 Acute diastolic heart failure ([facility]) 01/2022 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[facility]) 07/2019 Left, small lesion on CT Anxiety Cholecystitis s/p cholecystectomy Diabetes mellitus without mention of complication Diabetic neuropathy ([facility]) Seeing Neurology GERD (gastroesophageal reflux disease) History of abnormal cervical Pap smear History of tobacco use Hyperlipidemia Insomnia Microalbuminuria Morbid obesity (HCC) Narcotic abuse (HCC) Non-STEMI (non-ST elevated myocardial infarction) ([facility]) 2/2 respiratory illness LOGAN (obstructive sleep apnea) using CPAP Pulmonary embolism ([facility]) Seasonal allergies Unspecified essential hypertension ALLERGIES Flexeril [...] mouth once daily. flash glucose scanning reader (StreamupSTYLE DOMENICO 14 DAY READER) 1 Device four [...] arise. - Discussed diabetic education issues of continuous churn buttermaker diabetic complications, diet and importance of exercise [...] carbohydrate, healthy oil intake diet. Hallie Martinez APRN.DITCHING MACHINE ENGINEER Prescription instructions reviewed with patient as applicable. Patient advised if symptoms do not improve or if symptoms worsen sooner, to contact their primary care physician. Potential red flag symptoms discussed with the patient. Reviewed appropriate action plan to take if red flag symptoms occur. Patient agreeable to treatment plan. documented in this encounterKindred Hospital [facility]04-05-2022 Miscellaneous Notes Telephone Encounter - Sandra Potts LPN - 03/05/2022 1:23 PM EDT Patient telephoned and made aware. Sandra Potts LPN elephone Encounter - Panfilo Oreilly MD - 03/05/2022 1:06 PM EDT rx for Humalog sent. Continue same dosage as Novolog. elephone Encounter - Diana Mackenzie LPN - 03/05/2022 10:28 AM EDT Meghan from [facility] calling patient insurance requesting Novolog insulin be changed to Humalog asking for new rx to be sent to pharmacy. Please advise documented in this encounterKindred Hospital [facility]ima03-02-2022 Miscellaneous Notes Telephone Encounter - Sandra Potts LPN - 01/30/2022 11:27 AM EST Pt called and made aware. Prescription placed in medical records for pickup. Sandra Potts LPN Telephone Encounter - Marianne Grier RN - 01/30/2022 8:38 AM EST Patient calls to check on status of request for handicapped placard. Patient asking for prescriptionto be taken to Medical Records for pick remover. Please call patient when available at [phone]. Marianne Grier RN Telephone Encounter - Panfilo [...] the prescription left at the front desk supervisor. No chief complaint on file. Patient has been identified by name Noemy:[id number]} [phone] (home) [phone] (cell) Please return call when prescription ready for pick remover. Was an appointment scheduled: No: Closing statement: Results or non-symptom based questions: Thank you for [facility], your call will be returned within the next business day. Idalia Gongoraectronically signed by Idalia Milton at 01/29/2022 2:06 PM EST documented in this encounterKindred Hospital [facility]02-28-2022 Miscellaneous Notes Telephone Encounter - Sandra Potts [...] needed. Hallie Martinez APRN.CNP documented in this encounterKindred Hospital [facility]02-25-2022 Miscellaneous Notes Telephone Encounter - Hallie Martinez [...] - 01/25/2022 11:24 AM EST Pt telephoned. [facility] didn't receive orders yet. Pt requesting compression [...] to patient with update documented in this encounterKindred Hospital [facility]ima02-25-2022 Miscellaneous NotesTelephone Encounter - Nita Abbott - [...] yeast infection. Please send scripts to [facility] documented in this encounterKindred Hospital [facility]ima02-23-2022 Miscellaneous NotesTelephone Encounter - Hallie Martinez APRN.CNP - 01/23/2022 4:35 PM EST Please fax orders for compression hose, wheeled walker and shower chair to [facility]. Orders in my outbox documented in this encounterKindred Hospital [facility]ima02-14-2022 Miscellaneous Notes Telephone Encounter - Silvino Martinez [...] patient. Kristine Marmolejo Pss documented in this encounterKindred Hospital [facility]ima07-20-2021 Miscellaneous Notes Telephone Encounter - Esthela Weeks LPN - 06/19/2021 3:13 PM EDT Prior Authorization has been completed online at [employer] for Angelo Gore, will await response. W[place]- [id number] Please keep encounter open until final decision has been received and documented from insurance company. Adalgisa Weeks LPN documented in this encounterKindred Hospital [facility]ima12-07-2007 History of Past illness Narrative Problem Noted Date Resolved Date Acute cholecystitis 11/06/2007 11/20/2021 documented as of this encounter (statuses as of 02/26/2022)[facility] History of Past illness Narrative Problem Noted Date Resolved Date Acute cholecystitis 11/06/2007 11/20/2021 documented as of this encounter (statuses as of 03/19/2022)[facility] History of Past illness Narrative Problem Noted Date Resolved Date Acute cholecystitis 11/06/2007 11/20/2021 documented as of this encounter (statuses as of 03/20/2022)[facility] History of Past illness Narrative Problem Noted Date Resolved Date Acute cholecystitis 11/06/2007 11/20/2021 documented as of this encounter (statuses as of 03/20/2022)[facility] History of Past illness Narrative Problem Noted Date Resolved Date Acute cholecystitis 11/06/2007 11/20/2021 documented as of this encounter (statuses as of 03/20/2022)[facility] History of Past illness Narrative Problem Noted Date Resolved Date Acute cholecystitis 11/06/2007 11/20/2021 documented as of this encounter (statuses as of 03/20/2022)[facility] History of Past illness Narrative Problem Noted Date Resolved Date Acute cholecystitis 11/06/2007 11/20/2021 documented as of this encounter (statuses as of 03/20/2022)[facility] History of Past illness Narrative Problem Noted Date Resolved Date Acute cholecystitis 11/06/2007 11/20/2021 documented as of this encounter (statuses as of 03/28/2022)[facility] History of Past illness Narrative Problem Noted Date Resolved Date Acute cholecystitis 11/06/2007 11/20/2021 documented as of this encounter (statuses as of 03/29/2022)[facility] History of Past illness Narrative Problem Noted Date Resolved Date Acute cholecystitis 11/06/2007 11/20/2021 documented as of this encounter (statuses as of 04/02/2022)[facility] History of Past illness Narrative Problem Noted Date Resolved Date Acute cholecystitis 11/06/2007 11/20/2021 documented as of this encounter (statuses as of 04/03/2022)[facility] History of Past illness Narrative Problem Noted Date Resolved Date Acute cholecystitis 11/06/2007 11/20/2021 documented as of this encounter (statuses as of 04/10/2022)[facility] History of Past illness Narrative Problem Noted Date Resolved Date Acute cholecystitis 11/06/2007 11/20/2021 documented as of this encounter (statuses as of 05/01/2022)[facility] History of Past illness Narrative Problem Noted Date Resolved Date Acute cholecystitis 11/06/2007 11/20/2021 documented as of this encounter (statuses as of 05/02/2022)[facility] History of Past illness Narrative Problem Noted Date Resolved Date Acute cholecystitis 11/06/2007 11/20/2021 documented as of this encounter (statuses as of 06/03/2022)[facility] History of Past illness Narrative Problem Noted Date Resolved Date Acute cholecystitis 11/06/2007 11/20/2021 documented as of this encounter (statuses as of 06/05/2022)[facility] History of Past illness Narrative Problem Noted Date Resolved Date Acute cholecystitis 11/06/2007 11/20/2021 documented as of this encounter (statuses as of 06/13/2022)[facility] History of Past illness Narrative Problem Noted Date Resolved Date Acute cholecystitis 11/06/2007 11/20/2021 documented as of this encounter (statuses as of 2022)[facility] History of Past illness Narrative Problem Noted Date Resolved Date Acute cholecystitis 11/06/2007 11/20/2021 documented as of this encounter (statuses as of 06/28/2022)[facility] History of Past illness Narrative Problem Noted Date Resolved Date Acute cholecystitis 11/06/2007 11/20/2021 documented as of this encounter (statuses as of 06/28/2022)[facility] History of Past illness Narrative Problem Noted Date Resolved Date Acute cholecystitis 11/06/2007 11/20/2021 documented as of this encounter (statuses as of 07/03/2022)[facility] History of Past illness Narrative Problem Noted Date Resolved Date Acute cholecystitis 11/06/2007 11/20/2021 documented as of this encounter (statuses as of 07/11/2022)[facility] History of Past illness Narrative Problem Noted Date Resolved Date Acute cholecystitis 11/06/2007 11/20/2021 documented as of this encounter (statuses as of 07/19/2022)[facility] History of Past illness Narrative Problem Noted Date Resolved Date Acute cholecystitis 11/06/2007 11/20/2021 documented as of this encounter (statuses as of 07/24/2022)[facility] History of Past illness Narrative Problem Noted Date Resolved Date Acute cholecystitis 11/06/2007 11/20/2021 documented as of this encounter (statuses as of 07/27/2022)[facility] History of Past illness Narrative Problem Noted Date Resolved Date Acute cholecystitis 11/06/2007 11/20/2021 documented as of this encounter (statuses as of 08/01/2022)[facility] History of Past illness Narrative Problem Noted Date Resolved Date Acute cholecystitis 11/06/2007 11/20/2021 documented as of this encounter (statuses as of 08/01/2022)[facility] History of Past illness Narrative Problem Noted Date Resolved Date Acute cholecystitis 11/06/2007 11/20/2021 documented as of this encounter (statuses as of 08/16/2022)[facility] History of Past illness Narrative Problem Noted Date Resolved Date Acute cholecystitis 11/06/2007 11/20/2021 documented as of this encounter (statuses as of 08/27/2022)[facility] History of Past illness Narrative Problem Noted Date Resolved Date Acute cholecystitis 11/06/2007 11/20/2021 documented as of this encounter (statuses as of 09/10/2022)[facility] History of Past illness Narrative Problem Noted Date Resolved Date Acute cholecystitis 11/06/2007 11/20/2021 documented as of this encounter (statuses as of 10/01/2022)[facility] History of Past illness Narrative Problem Noted Date Resolved Date Acute cholecystitis 11/06/2007 11/20/2021 documented as of this encounter (statuses as of 10/04/2022)[facility] History of Past illness Narrative Problem Noted Date Resolved Date Acute cholecystitis 11/06/2007 11/20/2021 documented as of this encounter (statuses as of 10/18/2022)[facility] History of Past illness Narrative Problem Noted Date Resolved Date Acute cholecystitis 11/06/2007 11/20/2021 documented as of this encounter (statuses as of 10/22/2022)[facility] History of Past illness Narrative Problem Noted Date Resolved Date Acute cholecystitis 11/06/2007 11/20/2021 documented as of this encounter (statuses as of 10/22/2022)[facility] History of Past illness Narrative Problem Noted Date Resolved Date Acute cholecystitis 11/06/2007 11/20/2021 documented as of this encounter (statuses as of 10/22/2022)[facility] History of Past illness Narrative Problem Noted Date Resolved Date Acute cholecystitis 11/06/2007 11/20/2021 documented as of this encounter (statuses as of 10/30/2022)[facility] History of Past illness Narrative Problem Noted Date Resolved Date Acute cholecystitis 11/06/2007 11/20/2021 documented as of this encounter (statuses as of 11/05/2022)[facility] History of Past illness Narrative Problem Noted Date Resolved Date Acute cholecystitis 11/06/2007 11/20/2021 documented as of this encounter (statuses as of 11/06/2022)[facility] History of Past illness Narrative Problem Noted Date Resolved Date Acute cholecystitis 11/06/2007 11/20/2021 documented as of this encounter (statuses as of 11/11/2022)[facility] History of Past illness Narrative Problem Noted Date Resolved Date Acute cholecystitis 11/06/2007 11/20/2021 documented as of this encounter (statuses as of 11/11/2022)[facility] History of Past illness Narrative Problem Noted Date Resolved Date Acute cholecystitis 11/06/2007 11/20/2021 documented as of this encounter (statuses as of 12/04/2022)[facility] History of Past illness Narrative Problem Noted Date Resolved Date Acute cholecystitis 11/06/2007 11/20/2021 documented as of this encounter (statuses as of 12/06/2022)[facility] History of Past illness Narrative Problem Noted Date Resolved Date Acute cholecystitis 11/06/2007 11/20/2021 documented as of this encounter (statuses as of 12/12/2022)[facility] History of Past illness Narrative Problem Noted Date Resolved Date Acute cholecystitis 11/06/2007 11/20/2021 documented as of this encounter (statuses as of 12/13/2022)[facility] History of Past illness Narrative Problem Noted Date Resolved Date Acute cholecystitis 11/06/2007 11/20/2021 documented as of this encounter (statuses as of 12/25/2022)[facility] History of Past illness Narrative Problem Noted Date Resolved Date Acute cholecystitis 11/06/2007 11/20/2021 documented as of this encounter (statuses as of 12/25/2022)[facility] History of Past illness Narrative Problem Noted Date Resolved Date Acute cholecystitis 11/06/2007 11/20/2021 documented as of this encounter (statuses as of 12/30/2022)[facility] History of Past illness Narrative Problem Noted Date Resolved Date Acute cholecystitis 11/06/2007 11/20/2021 documented as of this encounter (statuses as of 12/31/2022)[facility] History of Past illness Narrative Problem Noted Date Resolved Date Acute cholecystitis 11/06/2007 11/20/2021 documented as of this encounter (statuses as of 01/02/2023)[facility] History of Past illness Narrative Problem Noted Date Resolved Date Acute cholecystitis 11/06/2007 11/20/2021 documented as of this encounter (statuses as of 01/02/2023)[facility] History of Past illness Narrative Problem Noted Date Resolved Date Acute cholecystitis 11/06/2007 11/20/2021 documented as of this encounter (statuses as of 01/03/2023)[facility] History of Past illness Narrative Problem Noted Date Resolved Date Acute cholecystitis 11/06/2007 11/20/2021 documented as of this encounter (statuses as of 01/07/2023)[facility] History of Past illness Narrative Problem Noted Date Resolved Date Acute cholecystitis 11/06/2007 11/20/2021 documented as of this encounter (statuses as of 01/07/2023)[facility] History of Past illness Narrative Problem Noted Date Resolved Date Acute cholecystitis 11/06/2007 11/20/2021 documented as of this encounter (statuses as of 01/13/2023)[facility] History of Past illness Narrative Problem Noted Date Resolved Date Acute cholecystitis 11/06/2007 11/20/2021 documented as of this encounter (statuses as of 01/14/2023)[facility] History of Past illness Narrative Problem Noted Date Resolved Date Acute cholecystitis 11/06/2007 11/20/2021 documented as of this encounter (statuses as of 01/15/2023)[facility] Evaluation note Diagnosis Chronic diastolic heart failure (HCC) Chronic diastolic heart failure [facility] ClinicEvaluation [facility] Diagnosis Type 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, with long-term current use of insulin (HCC)- Primary Dysuria LOGAN (obstructive sleep apnea) 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 (adult) (pediatr ic) Essential hypertension Unspecified essential hypertension Chronic respiratory failure with hypoxia (HCC) Chronic respiratory failure Hyperlipidemia, unspecified hyperlipidem ia type documented in this encounterCle[facility] ClinicEvaluation note Diagnosis Chronic diastolic heart failure (HCC)- P rimary Chronic diastolic heart failure documented in this encounterCle[facility] ClinicEvaluation note Diagnosis Vaginal rasta Candidiasis [...] olyneuropathy, with long-term current use of insulin ([facility]) documented in this encounterCle[facility] ClinicEvaluation note Diagnosis Acute diastolic CHF (congestive heart fa ilure) ([facility])- Primary Acute diastolic heart failure COPD with exacerbation ([facility]) Obstructive chronic bronchitis with exac erbation Bacterial pneumonia Bacterial pneumonia, unspecified Hypoxia Hypoxemia LOGAN treated with BiPAP Bilateral lower extremity edema Edema Type 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, with long-term current use of insulin ([facility]) Other chest pain Tremor Abnormal involuntary movements Tobacco use Tobacco use disorder documented in this encounterCle[facility] ClinicEvaluation note Diagnosis Type 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, with long-term current use of insulin ([facility])- Primary History of tobacco use Personal history of tobacco use, present ing hazards to health documented in [place] encounterMer [place] ClinicEvaluation note Diagnosis Onychomycosis- Primary Dermatophytosis of nail Pain in toe of left foot Pain in limb Pain in toe of right foot Pain in limb Other diabetic neurological complication associated with type 2 diabetes mellitus ([facility]) Hyperkeratosis Acquired keratoderma Chronic venous insufficiency Unspecified venous (peripheral) insuffic iency Diminished pulses in lower extremity Other symptoms involving cardiovascular system documented in this encounterClewhite [facility] ClinicEvaluation note Diagnosis Strep pharyngitis- Primary Streptococcal sore throat Reactive airway disease with acute exace rbation, unspecified asthma severity, unspecified whether persistent Tremor Abnormal involuntary movements LOGAN treated with BiPAP Morbid obesity ([facility]) Morbid obesity Type 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, with long-term current use of insulin ([facility]) Episodic lightheadedness Dizziness and giddiness Dehydration documented in this encounterMer [place] ClinicEvaluation note Diagnosis KERRY (acute kidney injury) ([facility])- Primary Acute kidney failure, unspecified documented in this encounterMer [place] ClinicEvaluation note Diagnosis Acute diastolic CHF (congestive heart fa ilure) ([facility]) Acute diastolic heart failure Bilateral lower extremity edema Edema documented in this encounterCleveland ClinicEvaluation note Diagnosis Type 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, with long-term current use of insulin ([facility]) documented in this encounterClewhite [facility] ClinicEvaluation note Diagnosis Type 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, with long-term current use of insulin ([facility]) Ischemia of heart, chronic Chronic ischemic heart disease, unspecif ied Tachycardia Tachycardia, unspecified Acute pulmonary embolism without acute c or pulmonale, unspecified pulmonary embolism type (HCC) Essential hypertension Unspecified essential hypertension Hyperlipidemia, unspecified hyperlipidem ia type documented [facility] Diagnosis Necrotizing soft tissue infection documented in this encounterKind[facility]imaEvaluation note Diagnosis Open wounds involving multiple regions o f lower extremity- Primary documented in this encounterKind[facility]imaEvaluation note Diagnosis Abscess of groin, left- Primary Cellulitis and abscess of trunk Non-healing open wound of left groin, in itial encounter Necrotizing soft tissue infection Cellulitis of skin Cellulitis and abscess of unspecified si te Type 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, with long-term current use of insulin (HCC) documented in this encounterKind[facility] LimaPatient's home Plan of care note Visit Details Visit Type -SN SOC Discipline -Custodial Problems Problem Description Start Date Status Goals [...] management and oxygen safety. documented in this encounterKind[facility] LimaPatient's home Plan of care note Visit Details Visit Type -Care Coordination Discipline -Shop Helper Problems Problem Description Start Date Status Goals Interventions SERVICE REPRESENTATIVE Referral 02/23/2023 Resolved on 1 goal linked to 1 goal Disciplines: 02/25/2023 scheduled/documen interventi on Skilled mitul intervention schedule d/document Services ed in this vis it Goals Goal Associated Problem Outcome Goal Met? Visit Not es Patient will be referred to SERVICE REPRESENTATIVE Referral Completed Yes additional discipline as needed Interventions Intervention Associated Problem/Goal Status Variance Visi t Notes SERVICE REPRESENTATIVE evaluation and Problem:SERVICE REPRESENTATIVE Referral Completed treatment Goal:Patient will be referred to additional discipline as needed Description: SERVICE REPRESENTATIVE Referral eval and treat for Community Resources. Patient states she is on waiver and is in need of an aide, electric, wheel chair, raised recliner states CM is working on these items [facility]) Diagnostic Procedure Only (Routine) - Pending Review Specialty Diagnoses / Procedures Referred By Contact Refer red To Contact BR IMAGING Diagnoses Encounter for screening mammogram for breast cancer Panfilo Oreilly MD Br Imaging Procedures SHERYL SCREENING SCREENING MAMMOGRAPHY BI 2-VIEW BREAST INC CAD [address] [place] [address] [id number] Referral ID Status Reason Start Expiration Visits Visits Date Date Requested Authorized [id number] Pending Auto-Generat 05/29/2022 06/28/2023 1 1 Review ed Referral [facility] (narrative)Outpatient Procedure (Routine) - Closed Specialty Diagnoses / Procedures Referred By Contact Refer red To Contact HEART AND VASCULAR Diagnoses Acute diastolic CHF (congestive heart failure) (HCC) Other chest pain Panfilo Oreilly, [facility] Procedures ECG COMPLETE ECG ROUTINE ECG W/LEAST 12 LDS W/I&R [address] [place], [place] [id number] [place] [id number] Referral ID Status Reason Start Date Expiration Date Visits V isits Requested Authorized [id number] Closed Auto-Generate 10/18/2022 10/18/2023 1 1 d Referral Diagnostic Procedure Only (Urgent) - Pending Review Specialty Diagnoses / Referred By Contact Referred To Contact Procedures MOLECULAR & Diagnoses Acute diastolic CHF (congestive heart failure) (HCC) Panfilo Oreilly Molecular [facility] FUN[facility] IMAGING Procedures NM CARDIAC PERF STRESS/PHARM MYOCARDIAL SPECT MULTIPLE STUDIES MD [facility] [address] [facility] [address] [place], [place] [id number] [place] [address] Referral ID Status Reason Start Expiration Visits Visits Date Date Requested Authorized [id number] Pending Auto-Generat 11/17/2023 1 1 Review ed Referral 2 Consult, Test, Treat (Routine) - Authorized Specialty Diagnoses / Procedures Referred By Contact Refer red To Contact Cardiology Diagnoses Acute diastolic CHF (congestive heart failure) (HCC) Panfilo Oreilly MD Procedures CONSULT TO CARDIOLOGY OFFICE/OUTPATIENT [facility] 60-74 MINUTES [address] [place] [phone] Referral ID Status Reason Start Expiration Visits Visits Date Date Requested Authorized [id number] Authorized PCP Requested 10/18/2023 1 1 Referral 2 [facility] (narrative)Outpatient Procedure (Routine) - [...] EXTREMITY ART 2 LEVEL [address] [place] [phone] [address] [facility] [place] [address] Referral ID Status Reason Start Expiration Visits Visits Date Date Requested Authorized [id number] Pending Auto-Generat 11/06/2022 11/06/2023 1 1 Review ed [facility])Outpatient Procedure (Urgent) - Authorized Specialty Diagnoses / Referred By Contact Referred To Contact Procedures [facility] Diagnoses Tremor Bursley, Christopher [facility] Procedures EPIL EEG ROUTINE ELECTROENCEPHALOGRAM REC COMA/SLEEP ONLY MD Dorys [address] [place] [address] [place] [address] Referral ID Status Reason Start Expiration Visits Visits Date Date Requested Authorized [id number] Authorized Auto-Generat 11/08/2022 11/08/2023 1 1 ed Referral Consult, Test, Treat (Routine) - Authorized Specialty Diagnoses / Procedures Referred By Contact Refer red To Contact Neurology Diagnoses Tremor Panfilo Oreilly MD Procedures CONSULT TO NEUROLOGY OFFICE/OUTPATIENT [facility] 60-74 MINUTES [address] [place] [address] Referral ID Status Reason Start Expiration Visits Visits Date Date Requested Authorized [id number] Authorized PCP Requested 11/08/2022 11/08/2023 1 1 [facility]erral [facility] Advance Directives No Advanced Directives Records Found Documents on File Type Date Recorded Patient Community Organizer Explanati on Advance Directive(s) 02/05/2022 1:53 PM Advance Directive(s) 10/16/2021 9:28 AM Documents on File Type Date Recorded Patient Community Organizer Explanati on Advance Directive(s) 02/05/2022 1:53 PM Advance Directive(s) 10/16/2021 9:28 AM Latest Code Status on File Code Status Date Activated Date Inactivated Comments Full Code 02/25/2023 7:20 AM Latest Code Status on File Code Status Date Activated Date Inactivated Comments Full Code 02/25/2023 7:20 AM Reason for Referral Specialty Diagnoses / Procedures Referred By Contact Refer red To Contact Panfilo Oreilly MD [address] [place] [address] Referral ID Status Reason Start Date Expiration Date Visits Requ ested Visits Authorized [id number] Closed 1 1 Specialty Diagnoses / Procedures Referred By Contact Refer red To Contact Diagnoses Acute pulmonary embolism without acute cor pulmonale, unspecified pulmonary embolism type (HCC) Bacterial pneumonia Panfilo Oreilly MD [address] [place] [address] Referral ID Status Reason Start Date Expiration Date Visits Requ ested Visits Authorized [id number] Closed 1 1 Referral ID Status Reason Start Date Expiration Date Visits Requ ested Visits Authorized [id number] Closed 1 1 Summary Purpose Family History [...] prosecute any alcohol or drug abuse patient. [facility] LimaIn the event this information is protected by t Federal Confidentiality of Alcohol and Drug Abuse Patient Records regulations: This information has been disclosed to you from records protected by Federal confid entiality rules ( The Federal rules restrict any use of th e information to criminally investigate or prosecute any alcohol or drug abuse tracy ent. [facility] LimaIn the event this information is protected by the Federal Confidentiality of Alcohol and Drug Abuse Patient Records regulations: This inform ation has been disclosed to you from records protected by Federal confidentiality rul es ( The Federal rules restrict any use of the in formation to criminally investigate or prosecute any alcohol or drug abuse tracy ent. [facility]imaIn the event this information is protected by the Federal Confidentiality of Alcohol and Drug Abuse Patient Records regulations: This inform ation has been disclosed to you from records protected by Federal confidentiality rul es ( The Federal rules restrict any use of the in formation to criminally investigate or prosecute any alcohol or drug abuse tracy ent. [facility]imaIn the event this information is protected by the Federal Confidentiality of Alcohol and Drug Abuse Patient Records regulations: This inform ation has been disclosed to you from records protected by Federal confidentiality rul es ( The Federal rules restrict any use of the in formation to criminally investigate or prosecute any alcohol or drug abuse tracy ent. [facility]imaIn the event this information is protected by the Federal Confidentiality of Alcohol and Drug Abuse Patient Records regulations: This inform ation has been disclosed to you from records protected by Federal confidentiality rul es ( The Federal rules restrict any use of the in formation to criminally investigate or prosecute any alcohol or drug abuse tracy ent. [facility]imaIn the event this information is protected by the Federal Confidentiality of Alcohol and Drug Abuse Patient Records regulations: This inform ation has been disclosed to you from records protected by Federal confidentiality rul es ( The Federal rules restrict any use of the in formation to criminally investigate or prosecute any alcohol or drug abuse tracy ent. [facility]imaIn the event this information is protected by the Federal Confidentiality of Alcohol and Drug Abuse Patient Records regulations: This inform ation has been disclosed to you from records protected by Federal confidentiality rul es ( The Federal rules restrict any use of the in formation to criminally investigate or prosecute any alcohol or drug abuse tracy ent. [facility]imaIn the event this information is protected by the Federal Confidentiality of Alcohol and Drug Abuse Patient Records regulations: This inform ation has been disclosed to you from records protected by Federal confidentiality rul es ( The Federal rules restrict any use of the in formation to criminally investigate or prosecute any alcohol or drug abuse tracy ent. [facility]imaIn the event this information is protected by the Federal Confidentiality of Alcohol and Drug Abuse Patient Records regulations: This inform ation has been disclosed to you from records protected by Federal confidentiality rul es ( The Federal rules restrict any use of the in formation to criminally investigate or prosecute any alcohol or drug abuse tracy ent. [facility]imaIn the event this information is protected by the Federal Confidentiality of Alcohol and Drug Abuse Patient Records regulations: This inform ation has been disclosed to you from records protected by Federal confidentiality rul es ( The Federal rules restrict any use of the in formation to criminally investigate or prosecute any alcohol or drug abuse tracy ent. [facility] LimaIn the event this information is protected by the Federal Confidentiality of Alcohol and Drug Abuse Patient Records regulations: This inform ation has been disclosed to you from records protected by Federal confidentiality rul es ( The Federal rules restrict any use of the in formation to criminally investigate or prosecute any alcohol or drug abuse tracy ent. [facility]imaIn the event this information is protected by the Federal Confidentiality of Alcohol and Drug Abuse Patient Records regulations: This inform ation has been disclosed to you from records protected by Federal confidentiality rul es ( The Federal rules restrict any use of the in formation to criminally investigate or prosecute any alcohol or drug abuse tracy ent. [facility]imaIn the event this information is protected by the Federal Confidentiality of Alcohol and Drug Abuse Patient Records regulations: This inform ation has been disclosed to you from records protected by Federal confidentiality rul es ( The Federal rules restrict any use of the in formation to criminally investigate or prosecute any alcohol or drug abuse tracy ent. [facility]imaIn the event this information is protected by the Federal Confidentiality of Alcohol and Drug Abuse Patient Records regulations: This inform ation has been disclosed to you from records protected by Federal confidentiality rul es ( The Federal rules restrict any use of the in formation to criminally investigate or prosecute any alcohol or drug abuse tracy ent. [facility]imaIn the event this information is protected by the Federal Confidentiality of Alcohol and Drug Abuse Patient Records regulations: This inform ation has been disclosed to you from records protected by Federal confidentiality rul es ( The Federal rules restrict any use of the in formation to criminally investigate or prosecute any alcohol or drug abuse tracy ent. [facility]imaIn the event this information is protected by the Federal Confidentiality of Alcohol and Drug Abuse Patient Records regulations: This inform ation has been disclosed to you from records protected by Federal confidentiality rul es ( The Federal rules restrict any use of the in formation to criminally investigate or prosecute any alcohol or drug abuse tracy ent. [facility]imaIn the event this information is protected by the Federal Confidentiality of Alcohol and Drug Abuse Patient Records regulations: This inform ation has been disclosed to you from records protected by Federal confidentiality rul es ( The Federal rules restrict any use of the in formation to criminally investigate or prosecute any alcohol or drug abuse tracy ent. [facility]imaIn the event this information is protected by the Federal Confidentiality of Alcohol and Drug Abuse Patient Records regulations: This inform ation has been disclosed to you from records protected by Federal confidentiality rul es ( The Federal rules restrict any use of the in formation to criminally investigate or prosecute any alcohol or drug abuse tracy ent. [facility]imaIn the event this information is protected by the Federal Confidentiality of Alcohol and Drug Abuse Patient Records regulations: This inform ation has been disclosed to you from records protected by Federal confidentiality rul es ( The Federal rules restrict any use of the in formation to criminally investigate or prosecute any alcohol or drug abuse tracy ent. [facility]imaIn the event this information is protected by the Federal Confidentiality of Alcohol and Drug Abuse Patient Records regulations: This inform ation has been disclosed to you from records protected by Federal confidentiality rul es ( The Federal rules restrict any use of the in formation to criminally investigate or prosecute any alcohol or drug abuse tracy ent. [facility]imaIn the event this information is protected by the Federal Confidentiality of Alcohol and Drug Abuse Patient Records regulations: This inform ation has been disclosed to you from records protected by Federal confidentiality rul es ( The Federal rules restrict any use of the in formation to criminally investigate or prosecute any alcohol or drug abuse tracy ent. [facility]imaIn the event this information is protected by the Federal Confidentiality of Alcohol and Drug Abuse Patient Records regulations: This inform ation has been disclosed to you from records protected by Federal confidentiality rul es ( The Federal rules restrict any use of the in formation to criminally investigate or prosecute any alcohol or drug abuse tracy ent. [facility]imaIn the event this information is protected by the Federal Confidentiality of Alcohol and Drug Abuse Patient Records regulations: This inform ation has been disclosed to you from records protected by Federal confidentiality rul es ( The Federal rules restrict any use of the in formation to criminally investigate or prosecute any alcohol or drug abuse tracy ent. [facility]imaIn the event this information is protected by the Federal Confidentiality of Alcohol and Drug Abuse Patient Records regulations: This inform ation has been disclosed to you from records protected by Federal confidentiality rul es ( The Federal rules restrict any use of the in formation to criminally investigate or prosecute any alcohol or drug abuse tracy ent. [facility]imaIn the event this information is protected by the Federal Confidentiality of Alcohol and Drug Abuse Patient Records regulations: This inform ation has been disclosed to you from records protected by Federal confidentiality rul es ( The Federal rules restrict any use of the in formation to criminally investigate or prosecute any alcohol or drug abuse tracy ent. [facility]imaIn the event this information is protected by the Federal Confidentiality of Alcohol and Drug Abuse Patient Records regulations: This inform ation has been disclosed to you from records protected by Federal confidentiality rul es ( The Federal rules restrict any use of the in formation to criminally investigate or prosecute any alcohol or drug abuse tracy ent. [facility]imaIn the event this information is protected by the Federal Confidentiality of Alcohol and Drug Abuse Patient Records regulations: This inform ation has been disclosed to you from records protected by Federal confidentiality rul es ( The Federal rules restrict any use of the in formation to criminally investigate or prosecute any alcohol or drug abuse tracy ent. [facility]imaIn the event this information is protected by the Federal Confidentiality of Alcohol and Drug Abuse Patient Records regulations: This inform ation has been disclosed to you from records protected by Federal confidentiality rul es ( The Federal rules restrict any use of the in formation to criminally investigate or prosecute any alcohol or drug abuse tracy ent. [facility]imaIn the event this information is protected by the Federal Confidentiality of Alcohol and Drug Abuse Patient Records regulations: This inform ation has been disclosed to you from records protected by Federal confidentiality rul es ( The Federal rules restrict any use of the in formation to criminally investigate or prosecute any alcohol or drug abuse tracy ent. [facility]imaIn the event this information is protected by the Federal Confidentiality of Alcohol and Drug Abuse Patient Records regulations: This inform ation has been disclosed to you from records protected by Federal confidentiality rul es ( The Federal rules restrict any use of the in formation to criminally investigate or prosecute any alcohol or drug abuse tracy ent. [facility]imaIn the event this information is protected by the Federal Confidentiality of Alcohol and Drug Abuse Patient Records regulations: This inform ation has been disclosed to you from records protected by Federal confidentiality rul es ( The Federal rules restrict any use of the in formation to criminally investigate or prosecute any alcohol or drug abuse tracy ent. [facility]imaIn the event this information is protected by the Federal Confidentiality of Alcohol and Drug Abuse Patient Records regulations: This inform ation has been disclosed to you from records protected by Federal confidentiality rul es ( The Federal rules restrict any use of the in formation to criminally investigate or prosecute any alcohol or drug abuse tracy ent. [facility]imaIn the event this information is protected by the Federal Confidentiality of Alcohol and Drug Abuse Patient Records regulations: This inform ation has been disclosed to you from records protected by Federal confidentiality rul es ( The Federal rules restrict any use of the in formation to criminally investigate or prosecute any alcohol or drug abuse tracy ent. [facility]imaIn the event this information is protected by the Federal Confidentiality of Alcohol and Drug Abuse Patient Records regulations: This inform ation has been disclosed to you from records protected by Federal confidentiality rul es ( The Federal rules restrict any use of the in formation to criminally investigate or prosecute any alcohol or drug abuse tracy ent. [facility]imaIn the event this information is protected by the Federal Confidentiality of Alcohol and Drug Abuse Patient Records regulations: This inform ation has been disclosed to you from records protected by Federal confidentiality rul es ( The Federal rules restrict any use of the in formation to criminally investigate or prosecute any alcohol or drug abuse tracy ent. [facility]imaIn the event this information is protected by the Federal Confidentiality of Alcohol and Drug Abuse Patient Records regulations: This inform ation has been disclosed to you from records protected by Federal confidentiality rul es ( The Federal rules restrict any use of the in formation to criminally investigate or prosecute any alcohol or drug abuse tracy ent. [facility]imaIn the event this information is protected by the Federal Confidentiality of Alcohol and Drug Abuse Patient Records regulations: This inform ation has been disclosed to you from records protected by Federal confidentiality rul es ( The Federal rules restrict any use of the in formation to criminally investigate or prosecute any alcohol or drug abuse tracy ent. [facility]imaIn the event this information is protected by the Federal Confidentiality of Alcohol and Drug Abuse Patient Records regulations: This inform ation has been disclosed to you from records protected by Federal confidentiality rul es ( The Federal rules restrict any use of the in formation to criminally investigate or prosecute any alcohol or drug abuse tracy ent. [facility]imaIn the event this information is protected by the Federal Confidentiality of Alcohol and Drug Abuse Patient Records regulations: This inform ation has been disclosed to you from records protected by Federal confidentiality rul es ( The Federal rules restrict any use of the in formation to criminally investigate or prosecute any alcohol or drug abuse tracy ent. [facility]imaIn the event this information is protected by the Federal Confidentiality of Alcohol and Drug Abuse Patient Records regulations: This inform ation has been disclosed to you from records protected by Federal confidentiality rul es ( The Federal rules restrict any use of the in formation to criminally investigate or prosecute any alcohol or drug abuse tracy ent. [facility]imaIn the event this information is protected by the Federal Confidentiality of Alcohol and Drug Abuse Patient Records regulations: This inform ation has been disclosed to you from records protected by Federal confidentiality rul es ( The Federal rules restrict any use of the in formation to criminally investigate or prosecute any alcohol or drug abuse tracy ent. [facility]imaIn the event this information is protected by the Federal Confidentiality of Alcohol and Drug Abuse Patient Records regulations: This inform ation has been disclosed to you from records protected by Federal confidentiality rul es ( The Federal rules restrict any use of the in formation to criminally investigate or prosecute any alcohol or drug abuse tracy ent. [facility]imaIn the event this information is protected by the Federal Confidentiality of Alcohol and Drug Abuse Patient Records regulations: This inform ation has been disclosed to you from records protected by Federal confidentiality rul es ( The Federal rules restrict any use of the in formation to criminally investigate or prosecute any alcohol or drug abuse tracy ent. [facility]imaIn the event this information is protected by the Federal Confidentiality of Alcohol and Drug Abuse Patient Records regulations: This inform ation has been disclosed to you from records protected by Federal confidentiality rul es ( The Federal rules restrict any use of the in formation to criminally investigate or prosecute any alcohol or drug abuse tracy ent. [facility]imaIn the event this information is protected by the Federal Confidentiality of Alcohol and Drug Abuse Patient Records regulations: This inform ation has been disclosed to you from records protected by Federal confidentiality rul es ( The Federal rules restrict any use of the in formation to criminally investigate or prosecute any alcohol or drug abuse tracy ent. [facility] the event this information is protected by the Federal Confidentiality of Alcohol and Drug Abuse Patient Records regulations: This inform ation has been disclosed to you from records protected by Federal confidentiality rul es ( The Federal rules restrict any use of the in formation to criminally investigate or prosecute any alcohol or drug abuse tracy ent. [facility]imaIn the event this information is protected by the Federal Confidentiality of Alcohol and Drug Abuse Patient Records regulations: This inform ation has been disclosed to you from records protected by Federal confidentiality rul es ( The Federal rules restrict any use of the in formation to criminally investigate or prosecute any alcohol or drug abuse tracy ent. [facility]imaIn the event this information is protected by the Federal Confidentiality of Alcohol and Drug Abuse Patient Records regulations: This inform ation has been disclosed to you from records protected by Federal confidentiality rul es ( The Federal rules restrict any use of the in formation to criminally investigate or prosecute any alcohol or drug abuse tracy ent. [facility]ima[facility] the event this information is protected by the Federal Confidentiality of Alcohol and Drug Abuse Patient Records regulations: This inform ation has been disclosed to you from records protected by Federal confidentiality rul es ( The Federal rules restrict any use of the in formation to criminally investigate or prosecute any alcohol or drug abuse tracy ent. [facility]imaIn the event this information is protected by the Federal Confidentiality of Alcohol and Drug Abuse Patient Records regulations: This inform ation has been disclosed to you from records protected by Federal confidentiality rul es ( The Federal rules restrict any use of the in formation to criminally investigate or prosecute any alcohol or drug abuse tracy ent. [facility]imaIn the event this information is protected by the Federal Confidentiality of Alcohol and Drug Abuse Patient Records regulations: This inform ation has been disclosed to you from records protected by Federal confidentiality rul es ( The Federal rules restrict any use of the in formation to criminally investigate or prosecute any alcohol or drug abuse tracy ent. [facility]imaIn the event this information is protected by the Federal Confidentiality of Alcohol and Drug Abuse Patient Records regulations: This inform ation has been disclosed to you from records protected by Federal confidentiality rul es ( The Federal rules restrict any use of the in formation to criminally investigate or prosecute any alcohol or drug abuse tracy ent. [facility]imaIn the event this information is protected by the Federal Confidentiality of Alcohol and Drug Abuse Patient Records regulations: This inform ation has been disclosed to you from records protected by Federal confidentiality rul es ( The Federal rules restrict any use of the in formation to criminally investigate or prosecute any alcohol or drug abuse tracy ent. [facility]imaIn the event this information is protected by the Federal Confidentiality of Alcohol and Drug Abuse Patient Records regulations: This inform ation has been disclosed to you from records protected by Federal confidentiality rul es ( The Federal rules restrict any use of the in formation to criminally investigate or prosecute any alcohol or drug abuse tracy ent. [facility]imaIn the event this information is protected by the Federal Confidentiality of Alcohol and Drug Abuse Patient Records regulations: This inform ation has been disclosed to you from records protected by Federal confidentiality rul es ( The Federal rules restrict any use of the in formation to criminally investigate or prosecute any alcohol or drug abuse tracy ent. [facility]imaIn the event this information is protected by the Federal Confidentiality of Alcohol and Drug Abuse Patient Records regulations: This inform ation has been disclosed to you from records protected by Federal confidentiality rul es ( The Federal rules restrict any use of the in formation to criminally investigate or prosecute any alcohol or drug abuse tracy ent. [facility]imaIn the event this information is protected by the Federal Confidentiality of Alcohol and Drug Abuse Patient Records regulations: This inform ation has been disclosed to you from records protected by Federal confidentiality rul es ( The Federal rules restrict any use of the in formation to criminally investigate or prosecute any alcohol or drug abuse tracy ent. [facility]imaIn the event this information is protected by the Federal Confidentiality of Alcohol and Drug Abuse Patient Records regulations: This inform ation has been disclosed to you from records protected by Federal confidentiality rul es ( The Federal rules restrict any use of the in formation to criminally investigate or prosecute any alcohol or drug abuse tracy ent. [facility]imaIn the event this information is protected by the Federal Confidentiality of Alcohol and Drug Abuse Patient Records regulations: This inform ation has been disclosed to you from records protected by Federal confidentiality rul es ( The Federal rules restrict any use of the in formation to criminally investigate or prosecute any alcohol or drug abuse tracy ent. [facility]imaIn the event this information is protected by the Federal Confidentiality of Alcohol and Drug Abuse Patient Records regulations: This inform ation has been disclosed to you from records protected by Federal confidentiality rul es ( The Federal rules restrict any use of the in formation to criminally investigate or prosecute any alcohol or drug abuse tracy ent. [facility]imaIn the event this information is protected by the Federal Confidentiality of Alcohol and Drug Abuse Patient Records regulations: This inform ation has been disclosed to you from records protected by Federal confidentiality rul es ( The Federal rules restrict any use of the in formation to criminally investigate or prosecute any alcohol or drug abuse tracy ent. [facility]imaIn the event this information is protected by the Federal Confidentiality of Alcohol and Drug Abuse Patient Records regulations: This inform ation has been disclosed to you from records protected by Federal confidentiality rul es ( The Federal rules restrict any use of the in formation to criminally investigate or prosecute any alcohol or drug abuse tracy ent. [facility]imaIn the event this information is protected by the Federal Confidentiality of Alcohol and Drug Abuse Patient Records regulations: This inform ation has been disclosed to you from records protected by Federal confidentiality rul es ( The Federal rules restrict any use of the in formation to criminally investigate or prosecute any alcohol or drug abuse tracy ent. [facility]imaIn the event this information is protected by the Federal Confidentiality of Alcohol and Drug Abuse Patient Records regulations: This inform ation has been disclosed to you from records protected by Federal confidentiality rul es ( The Federal rules restrict any use of the in formation to criminally investigate or prosecute any alcohol or drug abuse tracy ent. [facility]imaIn the event this information is protected by the Federal Confidentiality of Alcohol and Drug Abuse Patient Records regulations: This inform ation has been disclosed to you from records protected by Federal confidentiality rul es ( The Federal rules restrict any use of the in formation to criminally investigate or prosecute any alcohol or drug abuse tracy ent. [facility]imaIn the event this information is protected by the Federal Confidentiality of Alcohol and Drug Abuse Patient Records regulations: This inform ation has been disclosed to you from records protected by Federal confidentiality rul es ( The Federal rules restrict any use of the in formation to criminally investigate or prosecute any alcohol or drug abuse tracy ent. [facility]imaIn the event this information is protected by the Federal Confidentiality of Alcohol and Drug Abuse Patient Records regulations: This inform ation has been disclosed to you from records protected by Federal confidentiality rul es ( The Federal rules restrict any use of the in formation to criminally investigate or prosecute any alcohol or drug abuse tracy ent. [facility]imaIn the event this information is protected by the Federal Confidentiality of Alcohol and Drug Abuse Patient Records regulations: This inform ation has been disclosed to you from records protected by Federal confidentiality rul es ( The Federal rules restrict any use of the in formation to criminally investigate or prosecute any alcohol or drug abuse tracy ent. [facility]imaIn the event this information is protected by the Federal Confidentiality of Alcohol and Drug Abuse Patient Records regulations: This inform ation has been disclosed to you from records protected by Federal confidentiality rul es ( The Federal rules restrict any use of the in formation to criminally investigate or prosecute any alcohol or drug abuse tracy ent. [facility]imaIn the event this information is protected by the Federal Confidentiality of Alcohol and Drug Abuse Patient Records regulations: This inform ation has been disclosed to you from records protected by Federal confidentiality rul es ( The Federal rules restrict any use of the in formation to criminally investigate or prosecute any alcohol or drug abuse tracy ent. [facility]imaIn the event this information is protected by the Federal Confidentiality of Alcohol and Drug Abuse Patient Records regulations: This inform ation has been disclosed to you from records protected by Federal confidentiality rul es ( The Federal rules restrict any use of the in formation to criminally investigate or prosecute any alcohol or drug abuse tracy ent. [facility]imaIn the event this information is protected by the Federal Confidentiality of Alcohol and Drug Abuse Patient Records regulations: This inform ation has been disclosed to you from records protected by Federal confidentiality rul es ( The Federal rules restrict any use of the in formation to criminally investigate or prosecute any alcohol or drug abuse tracy ent. [facility]imaIn the event this information is protected by the Federal Confidentiality of Alcohol and Drug Abuse Patient Records regulations: This inform ation has been disclosed to you from records protected by Federal confidentiality rul es ( The Federal rules restrict any use of the in formation to criminally investigate or prosecute any alcohol or drug abuse tracy ent. [facility]imaIn the event this information is protected by the Federal Confidentiality of Alcohol and Drug Abuse Patient Records regulations: This inform ation has been disclosed to you from records protected by Federal confidentiality rul es ( The Federal rules restrict any use of the in formation to criminally investigate or prosecute any alcohol or drug abuse tracy ent. [facility]imaIn the event this information is protected by the Federal Confidentiality of Alcohol and Drug Abuse Patient Records regulations: This inform ation has been disclosed to you from records protected by Federal confidentiality rul es ( The Federal rules restrict any use of the in formation to criminally investigate or prosecute any alcohol or drug abuse tracy ent. [facility]imaIn the event this information is protected by the Federal Confidentiality of Alcohol and Drug Abuse Patient Records regulations: This inform ation has been disclosed to you from records protected by Federal confidentiality rul es ( The Federal rules restrict any use of the in formation to criminally investigate or prosecute any alcohol or drug abuse tracy ent. [facility]imaIn the event this information is protected by the Federal Confidentiality of Alcohol and Drug Abuse Patient Records regulations: This inform ation has been disclosed to you from records protected by Federal confidentiality rul es ( The Federal rules restrict any use of the in formation to criminally investigate or prosecute any alcohol or drug abuse tracy ent. [facility]imaIn the event this information is protected by the Federal Confidentiality of Alcohol and Drug Abuse Patient Records regulations: This inform ation has been disclosed to you from records protected by Federal confidentiality rul es ( The Federal rules restrict any use of the in formation to criminally investigate or prosecute any alcohol or drug abuse tracy ent. [facility]imaIn the event this information is protected by the Federal Confidentiality of Alcohol and Drug Abuse Patient Records regulations: This inform ation has been disclosed to you from records protected by Federal confidentiality rul es ( The Federal rules restrict any use of the in formation to criminally investigate or prosecute any alcohol or drug abuse tracy ent. [facility]imaIn the event this information is protected by the Federal Confidentiality of Alcohol and Drug Abuse Patient Records regulations: This inform ation has been disclosed to you from records protected by Federal confidentiality rul es ( The Federal rules restrict any use of the in formation to criminally investigate or prosecute any alcohol or drug abuse tracy ent. [facility]imaIn the event this information is protected by the Federal Confidentiality of Alcohol and Drug Abuse Patient Records regulations: This inform ation has been disclosed to you from records protected by Federal confidentiality rul es ( The Federal rules restrict any use of the in formation to criminally investigate or prosecute any alcohol or drug abuse tracy ent. [facility]imaIn the event this information is protected by the Federal Confidentiality of Alcohol and Drug Abuse Patient Records regulations: This inform ation has been disclosed to you from records protected by Federal confidentiality rul es ( The Federal rules restrict any use of the in formation to criminally investigate or prosecute any alcohol or drug abuse tracy ent. [facility] Reason for Visit (unrecognized section a nd [...] medications and diabetic supplies be sent to [facility] in [place]. Reason Onset Date Comments Refill Request 07/24/2022 Reason Comments Consult Colonoscopy Reason Onset Date Comments Refill Request 07/05/2022 Refill Request 08/16/2022 Reason Onset Date Comments Refill Request 08/27/2022 Reason Onset Date Comments Refill Request 10/04/2022 Reason Comments Prescription Clarification Reason Comments Results No answer and VM not set up. YuanV message sent to request patient call in [...] Care 01/02/2023 TCM initial outreach -dc'd from [facility] 01/01/23 Reason Comments Missed Appointment Pharmacy visit reschedule Reason Comments Medication Request Reason Onset Date Comments Transition Of Care 01/14/2023 TCM follow-up readmi tted to hospital Reason Onset Date Comments Transition Of Care 01/17/2023 TCM Pharmacy-Hospita l discharge 01/16/23 Reason Comments Custodial Reason Onset Date Comments Transition Of Care [...] Comments Transition Of Care 02/21/2023 TCM Initial [facility] Discharge 02/20/23 Specialty Diagnoses / Procedures Referred By Contact Refer red To Contact [facility] Home Care IND [address] [place] [address] Phone: Referral ID Status Reason Start Date Expiration Date Visits Requ ested Visits Authorized [id number] 1 1 Care Teams (unrecognized section and con tent) Bisque Tile Burner Relationship Specialty Start Date End Date Panfilo Oreilly MD PCP - General Family Practice 02/12/17 [address] [place], [place] [address] Shreya Mccray Endocrinology 07/23/18 [place] Dumont Specialty Batch Maker Pulmonary Disease 12/23/18 [address] [place], [place] [address] Brandee Cotter (Missionary Coordinator) Consulting Endocrinology 11/09/19 [address] [place], [place] [id number] [place] Dumont Consulting Pulmonary Disease 11/12/19 [address] [place] [address] Robert Sanchez, [facility] Pharmacist Pharmacy 09/06/21 [address] [place] [address] [facility] 12/17/17 [facility] 07/23/18 [facility] [place] [facility] 06/20/20 Bisque Tile Burner Relationship Specialty Start Date End Date Panfilo Oreilly MD PCP - General Family Practice 02/12/17 [address] [place] [address] Shreya Mccray Endocrinology 07/23/18 [place] Dumont Specialty Batch Maker Pulmonary Disease 12/23/18 [address] [place] [address] Brandee Cotter (Missionary Coordinator) Consulting Endocrinology 11/09/19 [address] [place] [address] [place] Dumont Consulting Pulmonary Disease 11/12/19 [address] [place] [address] Robert Sanchez [facility] Pharmacist Pharmacy 09/06/21 [address] [place] [address] [employer] 12/17/17 [facility] 07/23/18 [facility] [place] [facility] 06/20/20 Bisque Tile Burner Relationship Specialty Start Date End Date Panfilo Oreilly MD PCP - General Family Practice 02/12/17 [address] [place] [address] Shreya Mccray Endocrinology 07/23/18 [place] Dum[place] Specialty Batch Maker Pulmonary Disease 12/23/18 [address] [place] [address] Brandee Cotter (Missionary Coordinator) Consulting Endocrinology 11/09/19 [address] [place] [address] [place] Dumont Consulting Pulmonary Disease 11/12/19 [address] [place] [address] Robert Sanchez, [facility] Pharmacist Pharmacy 09/06/21 [address] [place] [address] [employer] 12/17/17 [facility] 07/23/18 [facility] [place] [facility] 06/20/20 Bisque Tile Burner Relationship Specialty Start Date End Date Panfilo Oreilly MD PCP - General Family Practice 02/12/17 [address] [place] [address] Shreya Mccray Endocrinology 07/23/18 [place] Dum[place] Specialty Batch Maker Pulmonary Disease 12/23/18 [address] [place] [address] Brandee Cotter (Missionary Coordinator) Consulting Endocrinology 11/09/19 [address] [place] [address] Belrin Dumont Consulting Pulmonary Disease 11/12/19 [address] [place] [address] Robert Sanchez, [facility] Pharmacist Pharmacy 09/06/21 [address] [place] [address] [employer] 12/17/17 [facility] 07/23/18 [facility] [place] [facility] 06/20/20 Bisque Tile Burner Relationship Specialty Start Date End Date Panfilo Oreilyl MD PCP - General Family Practice 02/12/17 [address] [place] [address] Shreya Mccray Endocrinology 07/23/18 [place] Dum[place] Specialty Batch Maker Pulmonary Disease 12/23/18 [address] [place] [address] Brandee Cotter (Missionary Coordinator) Consulting Endocrinology 11/09/19 [address] [place] [address] [place] Dumont Consulting Pulmonary Disease 11/12/19 [address] [place] [address] Robert Sanchez, [facility] Pharmacist Pharmacy 09/06/21 [address] [place] [address] [employer] 12/17/17 [facility] 07/23/18 [facility] [place] [facility] 06/20/20 Bisque Tile Burner Relationship Specialty Start Date End Date Panfilo Oreilly MD PCP - General Family Practice 02/12/17 [address] [place] [address] Shreya Mccray Endocrinology 07/23/18 [place] Dum[place] Specialty Batch Maker Pulmonary Disease 12/23/18 [address] [place] [address] Brandee Cotter (Missionary Coordinator) Consulting Endocrinology 11/09/19 [address] [place], [place] [id number] [place] Dumont Consulting Pulmonary Disease 11/12/19 [address] [place] [address] [facility] 09/06/21 [address] [place] [address] [employer] 12/17/17 [facility] 07/23/18 [facility] [place] [facility] 06/20/20 Bisque Tile Burner Relationship Specialty Start Date End Date Panfilo Oreilly MD PCP - General Family Practice 02/12/17 [address] [place] [address] Shreya Mccray Endocrinology 07/23/18 [place] Dumont Specialty Batch Maker Pulmonary Disease 12/23/18 [address] [place] [address] Brandee Cotter (Missionary Coordinator) Consulting Endocrinology 11/09/19 [address] [place] [address] [place] Dumont Consulting Pulmonary Disease 11/12/19 [address] [place] [address] Robert Sanchez [facility] Pharmacist Pharmacy 09/06/21 [address] [place] [address] [facility] 12/17/17 [facility] 07/23/18 [facility] [place] [facility] 06/20/20 Bisque Tile Burner Relationship Specialty Start Date End Date Panfilo Oreilly MD PCP - General Family Practice 02/12/17 [address] [place] [address] Shreya Mccray Endocrinology 07/23/18 [place] Dumont Specialty Batch Maker Pulmonary Disease 12/23/18 [address] [place] [address] Brandee Cotter (Missionary Coordinator) Consulting Endocrinology 11/09/19 [address] [place] [address] [place] Dumont Consulting Pulmonary Disease 11/12/19 [address] [place] [address] Robert Sanchez [facility] Pharmacist Pharmacy 09/06/21 [address] [place] [address] [employer] 12/17/17 [facility] 07/23/18 [facility] [place] [facility] 06/20/20 Bisque Tile Burner Relationship Specialty Start Date End Date Panfilo Oreilly MD PCP - General Family Practice 02/12/17 [address] [place] [address] Shreya Mccray Endocrinology 07/23/18 [place] Dumont Specialty Batch Maker Pulmonary Disease 12/23/18 [address] [place] [address] Brandee Cotter (Missionary Coordinator) Consulting Endocrinology 11/09/19 [address] [place], [place] [id number] [place] Dumont Consulting Pulmonary Disease 11/12/19 [address] [place] [address] Robert Sanchez, [facility] Pharmacist Pharmacy 09/06/21 [address] [place] [address] [employer] 12/17/17 [facility] 07/23/18 [facility] [place] [facility] 06/20/20 Bisque Tile Burner Relationship Specialty Start Date End Date Panfilo Oreilly MD PCP - General Family Practice 02/12/17 [address] [place] [address] Shreya Mccray Endocrinology 07/23/18 [place] Dum[place] Specialty Batch Maker Pulmonary Disease 12/23/18 [address] [place] [address] Brandee Cotter (Missionary Coordinator) Consulting Endocrinology 11/09/19 [address] [place], [place] [id number] [place] Dumont Consulting Pulmonary Disease 11/12/19 [address] [place] [address] Robetr Sanchez [facility] Pharmacist Pharmacy 09/06/21 [address] [place] [address] [employer] 12/17/17 [facility] 07/23/18 [facility] [place] [facility] 06/20/20 Bisque Tile Burner Relationship Specialty Start Date End Date Panfilo Oreilly MD PCP - General Family Practice 02/12/17 [address] [place] [address] Shreya Mccray Endocrinology 07/23/18 [place] Dumont Specialty Batch Maker Pulmonary Disease 12/23/18 [address] [address] Brandee Cotter (Missionary Coordinator) Consulting Endocrinology 11/09/19 [address] [place] [address] [place] Dumont Consulting Pulmonary Disease 11/12/19 [address] [place] [address] Robert Sanchez [facility] Pharmacist Pharmacy 09/06/21 [address] [facility] [place] [address] [employer] 12/17/17 [facility] 07/23/18 [facility] [place] [facility] 06/20/20 Bisque Tile Burner Relationship Specialty Start Date End Date Panfilo Oreilly MD PCP - General Family Practice 02/12/17 [address] [place] [address] Shreya Mccray Endocrinology 07/23/18 [place] Dumont Specialty Batch Maker Pulmonary Disease 12/23/18 [address] [place] [address] Brandee Cotter (Missionary Coordinator) Consulting Endocrinology 11/09/19 [address] [place], [place] [id number] [place] Dumont Consulting Pulmonary Disease 11/12/19 [address] [place] [address] Robert Sanchez, [facility] Pharmacist Pharmacy 09/06/21 [address] [place] [address] [employer] 12/17/17 [facility] Wound Center 07/23/18 Citizen Of [place] Home Patients 06/20/20 Bisque Tile Burner Relationship Specialty Start Date End Date Panfilo Oreilly MD PCP - General Family Practice 02/12/17 [address] [place] [address] Shreya Mccray Endocrinology 07/23/18 [place] Dumont Specialty Batch Maker Pulmonary Disease 12/23/18 [address] [place] [address] Brandee Cotter (Missionary Coordinator) Consulting Endocrinology 11/09/19 [address] [place] [address] [place] Dumont Consulting Pulmonary Disease 11/12/19 [address] [address] Robert Sanchez [facility] Pharmacist Pharmacy 09/06/21 [address] [place] [address] [employer] 12/17/17 [facility] 07/23/18 Citizen Of [place] Home Patients 06/20/20 Bisque Tile Burner Relationship Specialty Start Date End Date Panfilo Oreilly MD PCP - General Family Practice 02/12/17 [address] [place] [address] Shreya Mccray Endocrinology 07/23/18 [place] Dumont Specialty Batch Maker Pulmonary Disease 12/23/18 [address] [place] [address] Brandee Cotter (Missionary Coordinator) Consulting Endocrinology 11/09/19 [address] [place] [address] [place] Dumont Consulting Pulmonary Disease 11/12/19 [address] [place] [address] Robert Sanchez, [facility] Pharmacist Pharmacy 09/06/21 [address] [place] [address] [employer] 12/17/17 [facility] 07/23/18 Citizen Of [place] Home Patients 06/20/20 Bisque Tile Burner Relationship Specialty Start Date End Date Panfilo Oreilly MD PCP - General Family Practice 02/12/17 [address] [place] [address] Shreya Mccray Endocrinology 07/23/18 [place] Dumont Specialty Batch Maker Pulmonary Disease 12/23/18 [address] [place] [address] Brandee Cotter (Missionary Coordinator) Consulting Endocrinology 11/09/19 [address] [place], [place] [id number] [place] Dumont Consulting Pulmonary Disease 11/12/19 [address] [place] [address] Robert Sanchez [facility] Pharmacist Pharmacy 09/06/21 [address] [place] [address] [employer] 12/17/17 [facility] W[facility] 07/23/18 Citizen Of [place] Home Patients 06/20/20 Bisque Tile Burner Relationship Specialty Start Date End Date Panfilo Oreilly MD PCP - General Family Practice 02/12/17 [address] [place] [address] Shreya Mccray Endocrinology 07/23/18 [place] Dumont Specialty Batch Maker Pulmonary Disease 12/23/18 [address] [place] [address] Brandee Cotter (Missionary Coordinator) Consulting Endocrinology 11/09/19 [address] [place] [address] [place] Dumont Consulting Pulmonary Disease 11/12/19 [address] [place] [address] [facility] 09/06/21 [address] [place] [address] [employer] 12/17/17 [facility] W[facility] 07/23/18 Citizen Of [place] Home Patients 06/20/20 Bisque Tile Burner Relationship Specialty Start Date End Date Panfilo Oreilly MD PCP - General Family Practice 02/12/17 [address] [place] [address] Shreya Mccray Endocrinology 07/23/18 [place] Dumont Specialty Batch Maker Pulmonary Disease 12/23/18 [address] [place] [address] Brandee Cotter (Missionary Coordinator) Consulting Endocrinology 11/09/19 [address] [place] [address] [place] Dumont Consulting Pulmonary Disease 11/12/19 [address] [place] [address] [facility] Pharmacist [facility]acy 09/06/21 [address] [place] [address] [employer] 12/17/17 [facility] 07/23/18 Citizen Of [place] Home Patients 06/20/20 Bisque Tile Burner Relationship Specialty Start Date End Date Panfilo Oreilly MD PCP - General Family Practice 02/12/17 [address] [place] [address] Shreya Mccray MD Endocrinology 07/23/18 [place] Dumont Specialty Batch Maker Pulmonary Disease 12/23/18 [address] [place] [address] Brandee Cotter (Missionary Coordinator) Consulting Endocrinology 11/09/19 [address] [place], [place] [id number] [place] Dumont Consulting Pulmonary Disease 11/12/19 [address] [place] [address] Robert Sanchez [facility] Pharmacist Pharmacy 09/06/21 [address] [place] [address] [employer] 12/17/17 [facility] 07/23/18 Citizen Of [place] Home Patients 06/20/20 Bisque Tile Burner Relationship Specialty Start Date End Date Panfilo Oreilly MD PCP - General Family Practice 02/12/17 [address] [place] [address] Shreya Mccray MD Endocrinology 07/23/18 [place] Dumont Specialty Batch Maker Pulmonary Disease 12/23/18 [address] [place] [address] Brandee Cotter (Missionary Coordinator) Consulting Endocrinology 11/09/19 [address] [place] [address] [place] Dumont Consulting Pulmonary Disease 11/12/19 [address] [place] [address] [facility] Pharmacist Pharmacy 09/06/21 [address] [place] [address] [employer] 12/17/17 [facility] W[facility] Center 07/23/18 Citizen Of [place] Home Patients 06/20/20 Bisque Tile Burner Relationship Specialty Start Date End Date Panfilo Oreilly MD PCP - General Family Practice 02/12/17 [address] [place] [address] Shreya Mccray MD Endocrinology 07/23/18 [place] Dumont Specialty Batch Maker Pulmonary Disease 12/23/18 [address] [place] [address] Brandee Cotter (Missionary Coordinator) Consulting Endocrinology 11/09/19 [address] [place] [address] [place] Dumont Consulting Pulmonary Disease 11/12/19 [address] [place] [address] Robert Sanchez [facility] Pharmacist Pharmacy 09/06/21 [address] [place] [address] [employer] 12/17/17 [facility] W[facility] Center 07/23/18 Citizen Of [place] Home Patients 06/20/20 Bisque Tile Burner Relationship Specialty Start Date End Date Panfilo Oreilly MD PCP - General Family Practice 02/12/17 [address] [place] [address] Shreya Mccray MD Endocrinology 07/23/18 [place] Dumont Specialty Batch Maker Pulmonary Disease 12/23/18 [address] [place] [address] Brandee Cotter (Missionary Coordinator) Consulting Endocrinology 11/09/19 [address] [place] [address] [place] Dumont Consulting Pulmonary Disease 11/12/19 [address] [place] [address] Robert Sanchez [facility] Pharmacist Pharmacy 09/06/21 [address] [place] [address] [employer] 12/17/17 [facility] W[facility] 07/23/18 Citizen Of [place] Home Patients 06/20/20 Bisque Tile Burner Relationship Specialty Start Date End Date Panfilo Oreilly MD PCP - General Family Practice 02/12/17 [address] [facility] [place] [address] Shreya Mccray MD Endocrinology 07/23/18 [place] Dumont Specialty Batch Maker Pulmonary Disease 12/23/18 [address] [place] [address] Brandee Cotter (Missionary Coordinator) Consulting Endocrinology 11/09/19 [address] [place] [address] [place] Dumont Consulting Pulmonary Disease 11/12/19 [address] [place] [address] Robert Sanchez, [facility] Pharmacist Pharmacy 09/06/21 [address] [place] [address] [employer] 12/17/17 [facility] W[facility] 07/23/18 Citizen Of [place] Home Patients 06/20/20 Bisque Tile Burner Relationship Specialty Start Date End Date Panfilo Oreilly MD PCP - General Family Practice 02/12/17 [address] [place] [address] Shreya Mccray MD Endocrinology 07/23/18 [place] Dumont Specialty Batch Maker Pulmonary Disease 12/23/18 [address] [place] [address] Brandee Cotter (Missionary Coordinator) Consulting Endocrinology 11/09/19 [address] [place] [address] [place] Dumont Consulting Pulmonary Disease 11/12/19 [address] [place] [address] Robert Sanchez [facility] Pharmacist Pharmacy 09/06/21 [address] [facility] [place] [address] [employer] 12/17/17 [facility] W[facility] 07/23/18 Citizen Of [place] Home Patients 06/20/20 Bisque Tile Burner Relationship Specialty Start Date End Date Panfilo Oreilly MD PCP - General Family Practice 02/12/17 [address] [place] [address] Shreya Mccray MD Endocrinology 07/23/18 [place] Dumont Specialty Batch Maker Pulmonary Disease 12/23/18 [address] [place] [address] Brandee Cotter (Missionary Coordinator) Consulting Endocrinology 11/09/19 [address] [place], [place] [id number] [place] Dumont Consulting Pulmonary Disease 11/12/19 [address] [place] [address] Robert Sanchez [facility] Pharmacist Pharmacy 09/06/21 [address] [place] [address] [employer] 12/17/17 [facility] W[facility] 07/23/18 Citizen Of [place] Home Patients 06/20/20 Bisque Tile Burner Relationship Specialty Start Date End Date Panfilo Oreilly MD PCP - General Family Practice 02/12/17 [address] [facility] [place] [address] Shreya Mccray MD Endocrinology 07/23/18 [place] Dumont Specialty Batch Maker Pulmonary Disease 12/23/18 [address] [place] [address] Brandee Cotter (Missionary Coordinator) Consulting Endocrinology 11/09/19 [address] [place] [address] [place] Dumont Consulting Pulmonary Disease 11/12/19 [address] [place] [address] Robert Sanchez, [facility] Pharmacist Pharmacy 09/06/21 [address] [place] [address] [employer] 12/17/17 [facility] W[facility] 07/23/18 Citizen Of [place] Home Patients 06/20/20 Bisque Tile Burner Relationship Specialty Start Date End Date Panfilo Oreilly MD PCP - General Family Medicine 02/12/17 [address] [place] [address] Shreya Mccray MD Endocrinology 07/23/18 [place] Dumont Specialty Batch Maker Pulmonary Disease 12/23/18 [address] [address] Brandee Cotter (Missionary Coordinator) Consulting Endocrinology 11/09/19 [address] [place] [address] [place] Dumont Consulting Pulmonary Disease 11/12/19 [address] [place] [address] Robert Sanchez [facility] Pharmacist Pharmacy 09/06/21 [address] [place] [address] [employer] 12/17/17 [facility] W[facility] 07/23/18 Citizen Of [place] Home Patients 06/20/20 Bisque Tile Burner Relationship Specialty Start Date End Date Panfilo Oreilly MD PCP - General Family Medicine 02/12/17 [address] [place] [address] Shreya Mccray MD Endocrinology 07/23/18 [place] Dumont Specialty Batch Maker Pulmonary Disease 12/23/18 [address] [place] [address] Brandee Cotter (Missionary Coordinator) Consulting Endocrinology 11/09/19 [address] [place], [place] [id number] [place] Dumont Consulting Pulmonary Disease 11/12/19 [address] [place] [address] Robert Sanchez [facility] Pharmacist Pharmacy 09/06/21 [address] [place] [address] [employer] 12/17/17 [facility] W[facility] 07/23/18 Citizen Of [place] Home Patients 06/20/20 Bisque Tile Burner Relationship Specialty Start Date End Date Panfilo Oreilly MD PCP - General Family Medicine 02/12/17 [address] [place] [address] Shreya Mccray MD Endocrinology 07/23/18 [place] Dumont Specialty Batch Maker Pulmonary Disease 12/23/18 [address] [address] Brandee Cotter (Missionary Coordinator) Consulting Endocrinology 11/09/19 [address] [place], [place] [id number] [place] Dumont Consulting Pulmonary Disease 11/12/19 [address] [address] Robert Sanchez [facility] Pharmacist Pharmacy 09/06/21 [address] [place] [address] [employer] 12/17/17 [facility] W[facility] 07/23/18 Citizen Of [place] Home Patients 06/20/20 Bisque Tile Burner Relationship Specialty Start Date End Date Panfilo Oreilly MD PCP - General Family Medicine 02/12/17 [address] [place] [address] Shreya Mccray MD Endocrinology 07/23/18 [place] Dumont Specialty Batch Maker Pulmonary Disease 12/23/18 [address] [place] [address] Brandee Cotter (Missionary Coordinator) Consulting Endocrinology 11/09/19 [address] [place], [place] [id number] [place] Dumont Consulting Pulmonary Disease 11/12/19 [address] [place] [address] Robert Sanchez [facility] Pharmacist Pharmacy 09/06/21 [address] [place] [address] [employer] 12/17/17 [facility] W[facility] Center 07/23/18 Citizen Of [place] Home Patients 06/20/20 Bisque Tile Burner Relationship Specialty Start Date End Date Panfilo Oreilly MD PCP - General Family Medicine 02/12/17 [address] [place] [address] Shreya Mccray MD Endocrinology 07/23/18 [place] Dumont Specialty Batch Maker Pulmonary Disease 12/23/18 [address] [place] [address] Brandee Cotter (Missionary Coordinator) Consulting Endocrinology 11/09/19 [address] [place] [address] [place] Dumont Consulting Pulmonary Disease 11/12/19 [address] [place] [address] Robert Sanchez [facility] Pharmacist Pharmacy 09/06/21 [address] [place] [address] [employer] 12/17/17 [facility] W[facility] 07/23/18 Citizen Of [place] Home Patients 06/20/20 Bisque Tile Burner Relationship Specialty Start Date End Date Panfilo Oreilly MD PCP - General Family Medicine 02/12/17 [address] [place] [address] Shreya Mccray MD Endocrinology 07/23/18 [address] [place] [address] [place] Dumont Specialty Batch Maker Pulmonary Disease 12/23/18 [address] [place] [address] Brandee Cotter (Missionary Coordinator) Consulting Endocrinology 11/09/19 [address] [place], [place] [id number] [place] Dumont Consulting Pulmonary Disease 11/12/19 [address] [place] [address] Robert Sanchez, [facility] Pharmacist Pharmacy 09/06/21 [address] [place] [address] [employer] 12/17/17 [facility] W[facility] Center 07/23/18 Citizen Of [place] Home Patients 06/20/20 Bisque Tile Burner Relationship Specialty Start Date End Date Panfilo Oreilly MD PCP - General Family Medicine 02/12/17 [address] [place] [address] Shreya Mccray MD Endocrinology 07/23/18 [address] [place] [address] [place] Dumont Specialty Batch Maker Pulmonary Disease 12/23/18 [address] [address] Brandee Cotter (Missionary Coordinator) Consulting Endocrinology 11/09/19 [address] [place] [address] [place] Dumont Consulting Pulmonary Disease 11/12/19 [address] [place] [address] Robert Sanchez [facility] Pharmacist Pharmacy 09/06/21 [address] [place] [address] [employer] 12/17/17 [facility] W[facility] Center 07/23/18 Citizen Of [place] Home Patients 06/20/20 Bisque Tile Burner Relationship Specialty Start Date End Date Panfilo Oreilly MD PCP - General Family Medicine 02/12/17 [address] [place] [address] Shreya Mccray MD Endocrinology 07/23/18 [address] [place] [address] [place] Dumont Specialty Batch Maker Pulmonary Disease 12/23/18 [address] [place] [address] Brandee Cotter (Missionary Coordinator) Consulting Endocrinology 11/09/19 [address] [place] [address] [place] Dumont Consulting Pulmonary Disease 11/12/19 [address] [place] [address] Robert Sanchez, [facility] Pharmacist Pharmacy 09/06/21 [address] [place] [address] [employer] 12/17/17 [facility] W[facility] 07/23/18 Citizen Of [place] Home Patients 06/20/20 Bisque Tile Burner Relationship Specialty Start Date End Date Panfilo Oreilly MD PCP - General Family Medicine 02/12/17 [address] [place] [address] Shreya Mccray MD Endocrinology 07/23/18 [address] [place] [address] [place] Dumont Specialty Batch Maker Pulmonary Disease 12/23/18 [address] [address] Brandee Cotter (Missionary Coordinator) Consulting Endocrinology 11/09/19 [address] [place], [place] [id number] [place] Dumont Consulting Pulmonary Disease 11/12/19 [address] [place] [address] Robert Sanchez [facility] Pharmacist Pharmacy 09/06/21 [address] [place] [address] [employer] 12/17/17 [facility] W[facility] Center 07/23/18 Citizen Of [place] Home Patients 06/20/20 Bisque Tile Burner Relationship Specialty Start Date End Date Panfilo Oreilly MD PCP - General Family Medicine 02/12/17 [address] [place] [address] Shreya Mccray MD Endocrinology 07/23/18 [address] [place] [address] [place] Dumont Specialty Batch Maker Pulmonary Disease 12/23/18 [address] [place] [address] Brandee Cotter (Missionary Coordinator) Consulting Endocrinology 11/09/19 [address] [place] [address] [place] Dumont Consulting Pulmonary Disease 11/12/19 [address] [place] [address] Robert Sanchez [facility] Pharmacist Pharmacy 09/06/21 [address] [place] [address] [employer] 12/17/17 [facility] W[facility] 07/23/18 Citizen Of [place] Home Patients 06/20/20 Bisque Tile Burner Relationship Specialty Start Date End Date Panfilo Oreilly MD PCP - General Family Medicine 02/12/17 [address] [place] [address] Shreya Mccray MD Endocrinology 07/23/18 [address] [place] [address] [place] Dumont Specialty Batch Maker Pulmonary Disease 12/23/18 [address] [place] [address] Brandee Cotter (Missionary Coordinator) Consulting Endocrinology 11/09/19 [address] [place] [address] [place] Dumont Consulting Pulmonary Disease 11/12/19 [address] [place] [address] Robert Sanchez [facility] Pharmacist Pharmacy 09/06/21 [address] [place] [address] [employer] 12/17/17 [facility] W[facility] 07/23/18 Citizen Of [place] Home Patients 06/20/20 Bisque Tile Burner Relationship Specialty Start Date End Date Panfilo Oreilly MD PCP - General Family Medicine 02/12/17 [address] [place] [address] Shreya Mccray MD Endocrinology 07/23/18 [address] [place] [address] [place] Dumont Specialty Batch Maker Pulmonary Disease 12/23/18 [address] [place] [address] Brandee Cotter (Missionary Coordinator) Consulting Endocrinology 11/09/19 [address] [place], [place] [id number] [place] Dumont Consulting Pulmonary Disease 11/12/19 [address] [place] [address] Robert Sanchez [facility] Pharmacist Pharmacy 09/06/21 [address] [place] [address] [facility] 12/17/17 [facility] 07/23/18 Citizen Of [place] Home Patients 06/20/20 Bisque Tile Burner Relationship Specialty Start Date End Date Panfilo Oreilly MD PCP - General Family Medicine 02/12/17 [address] [place] [address] Shreya Mccray MD Endocrinology 07/23/18 [address] [place] [address] [place] Dumont Specialty Batch Maker Pulmonary Disease 12/23/18 [address] [place] [address] Brandee Cotter (Missionary Coordinator) Consulting Endocrinology 11/09/19 [address] [place] [address] [place] Dumont Consulting Pulmonary Disease 11/12/19 [address] [place] [address] Robert Sanchez [facility] Pharmacist Pharmacy 09/06/21 [address] [place] [address] [employer] 12/17/17 [facility] W[facility] 07/23/18 Citizen Of [place] Home Patients 06/20/20 Bisque Tile Burner Relationship Specialty Start Date End Date Panfilo Oreilly MD PCP - General Family Medicine 02/12/17 [address] [place] [address] Shreya Mccray MD Endocrinology 07/23/18 [address] [place] [address] [place] Dumont Specialty Batch Maker Pulmonary Disease 12/23/18 [address] [place] [address] Brandee Cotter (Missionary Coordinator) Consulting Endocrinology 11/09/19 [address] [place] [address] [place] Dumont Consulting Pulmonary Disease 11/12/19 [address] [place] [address] Robert Sanchez [facility] Pharmacist Pharmacy 09/06/21 [address] [place] [address] [facility] 12/17/17 [facility] W[facility] 07/23/18 Citizen Of [place] Home Patients 06/20/20 Bisque Tile Burner Relationship Specialty Start Date End Date Panfilo Oreilly MD PCP - General Family Medicine 02/12/17 [address] [place] [address] hSreya Mccray MD Endocrinology 07/23/18 [address] [place] [address] [place] Dumont Specialty Batch Maker Pulmonary Disease 12/23/18 [address] [place] [address] Brandee Cotter (Missionary Coordinator) Consulting Endocrinology 11/09/19 [address] [place] [address] [place] Dumont Consulting Pulmonary Disease 11/12/19 [address] [place] [address] Robert Sanchez [facility] Pharmacist Pharmacy 09/06/21 [address] [place] [address] [facility] 12/17/17 [facility] W[facility] 07/23/18 Citizen Of [place] Home Patients 06/20/20 Bisque Tile Burner Relationship Specialty Start Date End Date Panfilo Oreilly MD PCP - General Family Medicine 02/12/17 [address] [place] [address] Shreya Mccray MD Endocrinology 07/23/18 [address] [place] [address] [place] Dumont Specialty Batch Maker Pulmonary Disease 12/23/18 [address] [place] [address] Brandee Cotter (Missionary Coordinator) Consulting Endocrinology 11/09/19 [address] [place], [place] [id number] [place] Dumont Consulting Pulmonary Disease 11/12/19 [address] [place] [address] Robert Sanchez, [facility] Pharmacist Pharmacy 09/06/21 [address] [place] [address] [employer] 12/17/17 [facility] W[facility] 07/23/18 Citizen Of [place] Home Patients 06/20/20 [employer]que Tile Burner Relationship Specialty Start Date End Date Panfilo Oreilly MD PCP - General Family Medicine 02/12/17 [address] [place] [address] Shreya Mccray MD Endocrinology 07/23/18 [address] [place] [address] [place] Dumont Specialty Batch Maker Pulmonary Disease 12/23/18 [address] [place] [address] Brandee Cotter (Missionary Coordinator) Consulting Endocrinology 11/09/19 [address] [place], [place] [id number] [place] Dumont Consulting Pulmonary Disease 11/12/19 [address] [place] [address] Robert Sanchez [facility] Pharmacist Pharmacy 09/06/21 [address] [place] [address] [employer] 12/17/17 [facility] W[facility] 07/23/18 Citizen Of [place] Home Patients 06/20/20 Bisque Tile Burner Relationship Specialty Start Date End Date Panfilo Oreilly, PCP - General Family Medicine 02/12/17 [address] [place] [address] Shreya Mccray, Endocrinology 07/23/18 [address] [place] [address] [place]ont Specialty Batch Maker Pulmonary Disease 12/23/18 [address] [place] [address] Brandee Cotter Consulting Endocrinology 11/09/19 (Missionary Coordinator) [address] [place] [address] [place] Dumont Consulting Pulmonary Disease 11/12/19 [address] [place] [address] Robert Sanchez [facility] Pharmacist Pharmacy 09/06/21 [address] [place] [address] Brissa Kilpatrick, Transitional [facility] Pharmacy 01/02/23 [facility] Pharmacist [address] [place] [address] Mimi Crowley, control equipment electrician 01/01/23 01/29/23 Transportation Operations Manager [employer] 12/17/17 [facility] 07/23/18 Citizen Of [place] Home Patients 06/20/20 [employer] Tile Burner Relationship Specialty Start Date End Date Panfilo Oreilly, PCP - General Family Medicine 02/12/17 [address] [place], [place] [address] Shreya Mccray, Endocrinology 07/23/18 [address] [place], [place] [address]388[address] [place] Specialty Batch Maker Pulmonary Disease 12/23/18 [address] [place] [address] Brandee Cotter Consulting Endocrinology 11/09/19 (Missionary Coordinator) [address] [place] [address] [place] Dumont Consulting Pulmonary Disease 11/12/19 [address] [place] [address] Robert Sanchez, [facility] Pharmacist Pharmacy 09/06/21 [address] [place] [address] Brissa Kilpatrick, Transitional [facility] Pharmacy 01/02/23 [facility] Pharmacist [address] [place] [address] Mimi Crowley, control equipment electrician 01/01/23 01/29/23 Transportation Operations Manager [employer] 12/17/17 [facility] W[facility] Center 07/23/18 Citizen Of [place] Home Patients 06/20/20 Bisque Tile Burner Relationship Specialty Start Date End Date Panfilo Oreilly, PCP - General Family Medicine 02/12/17 [address] [place], [place] 021191 Shreya Mccray, Endocrinology 07/23/18 [address] [place], [place] [id number] [place] Dumont Specialty Batch Maker Pulmonary Disease 12/23/18 [address] [place] [address] Brandee Cotter Consulting Endocrinology 11/09/19 (Missionary Coordinator) [address] [place], [place] [id number] [place] Dumont Consulting Pulmonary Disease 11/12/19 [address] [place] [address] Robert Sanchez, [facility] Pharmacist Pharmacy 09/06/21 [address] [place] [address] Brissa Kilpatrick, Transitional Care Pharmacy 01/02/23 [facility] Pharmacist [address] [place] [address] Mimi Crowley, control equipment electrician 01/01/23 01/29/23 Transportation Operations Manager [employer] 12/17/17 [facility] 07/23/18 Citizen Of [place] Home Patients 06/20/20 Bisque Tile Burner Relationship Specialty Start Date End Date Panfilo Oreilly, PCP - General Family Medicine 02/12/17 [address] [place], [place] 253061 Shreya Mccray, Endocrinology 07/23/18 [address] [place], [place] 208111 [place] Dumont Specialty Batch Maker Pulmonary Disease 12/23/18 [address] [place] [address] Brandee Cotter Consulting Endocrinology 11/09/19 (Missionary Coordinator) [address], [place] [id number] Berlin Dumont Consulting Pulmonary Disease 11/12/19 [address] [place] [address] Robert Sanchez, [facility] Pharmacist Pharmacy 09/06/21 [address] [place] [address] Brissa Kilpatrick, Transitional Care Pharmacy 01/02/23 [facility] Pharmacist [address] [place] [address] Mimi Crowley, control equipment electrician 01/01/23 01/29/23 Transportation Operations Manager [employer] 12/17/17 [facility] 07/23/18 Citizen Of [place] Home Patients 06/20/20 Bisque Tile Burner Relationship Specialty Start Date End Date Panfilo Oreilly, PCP - General Family Medicine 02/12/17 [address] [place], [place] [id number] Shreya Mccray, Endocrinology 07/23/18 [address] [place], [place] [id number] [place] Dumont Specialty Batch Maker Pulmonary Disease 12/23/18 [address] [place] [address] Brandee Cotter Consulting Endocrinology 11/09/19 (Missionary Coordinator) [address] [place] [address] [place] Dumont Consulting Pulmonary Disease 11/12/19 [address] [place] [address] Robert Sanchez, [facility] Pharmacist Pharmacy 09/06/21 [address] [place] [address] Brissa Kilpatrick, Transitional Care Pharmacy 01/02/23 [facility] Pharmacist [address] [place] [address] Mimi Crowley, control equipment electrician 01/01/23 01/29/23 Transportation Operations Manager [employer] 12/17/17 [facility] 07/23/18 Citizen Of [place] Home Patients 06/20/20 Bisque Tile Burner Relationship Specialty Start Date End Date Panfilo Oreilly, PCP - General Family Medicine 02/12/17 [address] [place], [place] [id number] Shreya Mccray, Endocrinology 07/23/18 [address] [place], [place] [id number] [place] Dumont Specialty Batch Maker Pulmonary Disease 12/23/18 [address] [place] [address] Brandee Cotter Consulting Endocrinology 11/09/19 (Missionary Coordinator) [address] [place] [address] [place] Dumont Consulting Pulmonary Disease 11/12/19 [address] [place] [address] Robert Sanchez, [facility] Pharmacist Pharmacy 09/06/21 [address] [place] [address] Brissa Kilpatrick, Transitional Care Pharmacy 01/02/23 [facility] Pharmacist [address] [place] [address] [employer] 12/17/17 [facility] 07/23/18 Citizen [place] Home Patients 06/20/20 Bisque Tile Burner Relationship Specialty Start Date End Date Panfilo Oreilly, PCP - General Family Medicine 02/12/17 [address] [place] [address] Shreya Mccray, Endocrinology 07/23/18 [address] [place] [address] [place] Dumont Specialty Batch Maker Pulmonary Disease 12/23/18 [address] [place] [address] Brandee Cotter Consulting Endocrinology 11/09/19 (Missionary Coordinator) [address], [place] [id number] Berlin Dumont Consulting Pulmonary Disease 11/12/19 [address] [place] [address] Robert Sanchez [facility] Pharmacist Pharmacy 09/06/21 [address] [place] [address] Brissa Kilpatrick, Transitional Care Pharmacy 01/02/23 [facility] Pharmacist [address] [place], [place] [id number] [employer] 12/17/17 [facility] 07/23/18 Citizen Of [place] Home Patients 06/20/20 Bisque Tile Burner Relationship Specialty Start Date End Date Panfilo Oreilly, PCP - General Family Medicine 02/12/17 [address] [place] [address] Shreya Mccray, Endocrinology 07/23/18 [address] [place] [address] [place] Dumont Specialty Batch Maker Pulmonary Disease 12/23/18 [address] [place] [address] Brandee Cotter Consulting Endocrinology 11/09/19 (Missionary Coordinator) [address] [place] [address] [place] Dumont Consulting Pulmonary Disease 11/12/19 [address] [place] [address] Robert Sanchez [facility] Pharmacist Pharmacy 09/06/21 [address] [place] [address] Brissa Kilpatrick, Transitional Care Pharmacy 01/02/23 [facility] Pharmacist [address] [place] [address] Mimi Crowley, control equipment electrician 01/01/23 01/13/23 Transportation Operations Manager [employer] 12/17/17 [facility] 07/23/18 Citizen Of [place] Home Patients 06/20/20 Bisque Tile Burner Relationship Specialty Start Date End Date Panfilo Oreilly, PCP - General Family Medicine 02/12/17 [address] [place], [place] [id number] Shreya Mccray, Endocrinology 07/23/18 [address] [place] [address] [place] Dumont Specialty Batch Maker Pulmonary Disease 12/23/18 [address] [place] [address] Brandee Cotter Consulting Endocrinology 11/09/19 (Missionary Coordinator) [address] [place] [address] [place] Dumont Consulting Pulmonary Disease 11/12/19 [address] [place] [address] Robert Sanchez, [facility] Pharmacist Pharmacy 09/06/21 [address] [place] [address] Brissa Kilpatrick, Transitional Care Pharmacy 01/02/23 [facility] Pharmacist [address] [place] [address] Raquel Payne, control equipment electrician 01/17/23 Transportation Operations Manager [employer] 12/17/17 [facility] W[facility] 07/23/18 Citizen Of [place] Home Patients 06/20/20 Bisque Tile Burner Relationship Specialty Start Date End Date Panfilo Oreilly, PCP - General Family Medicine 02/12/17 [address] [place], [place] 231841 Shreya Mccray, Endocrinology 07/23/18 [address] [place], [place] 041751 [place] Dumont Specialty Batch Maker Pulmonary Disease 12/23/18 [address] [place] [address] Brandee Cotter Consulting Endocrinology 11/09/19 (Missionary Coordinator) [address] [place] [address] [place] Dumont Consulting Pulmonary Disease 11/12/19 [address] [place] [address] Robert Sanchez, [facility] Pharmacist Pharmacy 09/06/21 [address] [place] [address] Brissa Kilpatrick, Transitional Care Pharmacy 01/02/23 [facility] Pharmacist [address] [place] [address] Raquel Payne RN Primary Care 01/17/23 Transportation Operations Manager [employer] 12/17/17 [facility] W[facility] 07/23/18 Citizen [place] Home Patients 06/20/20 Bisque Tile Burner Relationship Specialty Start Date End Date Panfilo Oreilly, PCP - General Family Medicine 02/12/17 [address] [place], [place] 071201 Shreya Mccray, Endocrinology 07/23/18 [address] [place], [place] 235481 [place] Dumont Specialty Batch Maker Pulmonary Disease 12/23/18 [address] [place] [address] Brandee Cotter Consulting Endocrinology 11/09/19 (Missionary Coordinator) [address] [place], [place] [id number] [place] Dumont Consulting Pulmonary Disease 11/12/19 [address] [place] [address] Robert Sanchez, [facility] Pharmacist Pharmacy 09/06/21 [address] [place] [address] Brissa Kilpatrick, Transitional Care Pharmacy 01/02/23 [facility] Pharmacist [address] [place] [address] Raquel Payne, control equipment electrician 01/17/23 Transportation Operations Manager [employer] 12/17/17 [facility] W[facility] 07/23/18 Citizen [place] Home Patients 06/20/20 Bisque Tile Burner Relationship Specialty Start Date End Date Panfilo Oreilly, PCP - General Family Medicine 02/12/17 [address] [place], [place] [id number] Shreya Mccray, Endocrinology 07/23/18 [address] [place], [place] [id number] [place] Dumont Specialty Batch Maker Pulmonary Disease 12/23/18 [address] [place] [address] Brandee Cotter Consulting Endocrinology 11/09/19 (Missionary Coordinator) [address] [place] [address] [place] Dumont Consulting Pulmonary Disease 11/12/19 [address] [place] [address] Robert Sanchez, [facility] Pharmacist Pharmacy 09/06/21 [address] [place] [address] Brissa Kilpatrick, Transitional Care Pharmacy 01/02/23 [facility] Pharmacist [address] [place] [address] Raqule Payne, control equipment electrician 01/17/23 Transportation Operations Manager [employer] 12/17/17 [facility] Wound Center 07/23/18 Citizen Of [place] Home Patients 06/20/20 Bisque Tile Burner Relationship Specialty Start Date End Date Panfilo Oreilly, PCP - General Family Medicine 02/12/17 [address] [place], [place] [id number] Shreya Mccray, Endocrinology 07/23/18 [address] [place], [place] [id number] [place] Dumont Specialty Batch Maker Pulmonary Disease 12/23/18 [address] [place] [address] Brandee Cotter Consulting Endocrinology 11/09/19 (Missionary Coordinator) [address] [place], [place] [id number] [place] Dumont Consulting Pulmonary Disease 11/12/19 [address] [place] [address] Robert Sanchez, [facility] Pharmacist Pharmacy 09/06/21 [address] [place] [address] Brissa Kilpatrick, Transitional Care Pharmacy 01/02/23 [facility] Pharmacist [address] [place], [place] 9677395 Raquel Payne, control equipment electrician 01/17/23 Transportation Operations Manager [employer] 12/17/17 [facility] Wound Center 07/23/18 Citizen [place] Home Patients 06/20/20 Bisque Tile Burner Relationship Specialty Start Date End Date Panfilo Oreilly, PCP - General Family Medicine 02/12/17 [address] [place] [address] Shreya Mccray, Endocrinology 07/23/18 [address] [place] [address] [place] Dumont Specialty Batch Maker Pulmonary Disease 12/23/18 [address] [place] [address] Brandee Cotter Consulting Endocrinology 11/09/19 (Missionary Coordinator) [address] [place], [place] [id number] [place] Dumont Consulting Pulmonary Disease 11/12/19 [address] [place] [address] Robert Sanchez [facility] Pharmacist Pharmacy 09/06/21 [address] [place] [address] Raquel Payne, control equipment electrician 01/17/23 Transportation Operations Manager [employer] 12/17/17 [facility] Wound Center 07/23/18 Citizen [place] Home Patients 06/20/20 Bisque Tile Burner Relationship Specialty Start Date End Date Panfilo Oreilly, PCP - General Family Medicine 02/12/17 [address] [place] [address] Shreya Mccray, Endocrinology 07/23/18 [address] [place] [address] [place] Dumont Specialty Batch Maker Pulmonary Disease 12/23/18 [address] [place] [address] Brandee Cotter Consulting Endocrinology 11/09/19 (Missionary Coordinator) [address] [place], [place] [id number] [place] Dumont Consulting Pulmonary Disease 11/12/19 [address] [place] [address] Robert Sanchez [facility] Pharmacist Pharmacy 09/06/21 [address] [place] [address] Raquel Payne RN Primary Care 01/17/23 Transportation Operations Manager [employer] 12/17/17 [facility] Wound Center 07/23/18 Citizen [place] Home Patients 06/20/20 Bisque Tile Burner Relationship Specialty Start Date End Date Panfilo Oreilly, PCP - General Family Medicine 02/12/17 MD [address] [place], [place] 133131 Shreya Mccray, Endocrinology 07/23/18 [address] [place], [place] 701371 [place] Dumont Specialty Batch Maker Pulmonary Disease 12/23/18 [address] [place] [address] Brandee Cotter Consulting Endocrinology 11/09/19 (Missionary Coordinator) [facility] [address] [place], [place] [id number] [place] Dumont Consulting Pulmonary Disease 11/12/19 [address] [place] [address] [facility] 09/06/21 [address] [place] [address] Raquel Payne RN Primary Care 01/17/23 Transportation Operations Manager Dianne Garcia, [facility] General Surgery 02/20/23 SYSTEMS ARCHITECTURE ANALYST.DITCHING MACHINE ENGINEER 1 [facility] [place] [address] [employer] 12/17/17 [facility] Wound Center 07/23/18 Citizen Of [place] Home Patients 06/20/20 Bisque Tile Burner Relationship Specialty Start Date End Date Panfilo Oreilly, PCP - General Family Medicine 02/12/17 [address] [place], [place] 578201 Shreya Mccray, Endocrinology 07/23/18 [address] [place] [address] [place] Dumont Specialty Batch Maker Pulmonary Disease 12/23/18 [address] [place] [address] Brandee Cotter Consulting Endocrinology 11/09/19 (Missionary Coordinator) [address] [place], [place] [id number] [place] Dumont Consulting Pulmonary Disease 11/12/19 [address] [place] [address] Robert Sanchez, [facility] Pharmacist Pharmacy 09/06/21 [address] [place] [address] Dianne Garcia, [facility] General Surgery 02/20/23 SYSTEMS ARCHITECTURE ANALYST.DITCHING MACHINE ENGINEER 1 [place] [address] Annie Borges, [facility] Transitional Care Pharmacy 02/21/23 03/22/23 [facility] [facility] [place] [address] Carlos Cline, control equipment electrician Internal Medicine 02/21/23 03/23/[address] [place] [address] Cash Processor Panfilo Oreilly, Home Care Provider Family Medicine 02/21/23 [address] [place], [place] 660541 [employer] 12/17/17 [facility] Wound Center 07/23/18 Citizen [place] Home Patients 06/20/20 Bisque Tile Burner Relationship Specialty Start Date End Date Panfilo Oreilly MD PCP - General Family Medicine 02/12/17 [address] [place] [address] Shreya Mccray MD Endocrinology 07/23/18 [address] [place] [address] [place] Dumont Specialty Batch Maker Pulmonary Disease 12/23/18 [address] [place] [address] Brandee Cotter (Missionary Coordinator) Consulting Endocrinology 11/09/19 [address] [place], [place] [id number] [place] Dumont Consulting Pulmonary Disease 11/12/19 [address] [place] [address] Robert Sanchez [facility] Pharmacist Pharmacy 09/06/21 [address] [place] [address] [employer] 12/17/17 [facility] Wound Center 07/23/18 Citizen [place] Home Patients 06/20/20 Bisque Tile Burner Relationship Specialty Start Date End Date Panfilo Oreilly, PCP - General Family Medicine 02/12/17 [address] [place] [address] Shreya Mccray, Endocrinology 07/23/18 [address] [place] [address] [place] Dumont Specialty Batch Maker Pulmonary Disease 12/23/18 [address] [place], [place] 868371 Brandee Cotter Consulting Endocrinology 11/09/19 (Missionary Coordinator) [address] [place], [place] [id number] [place] Dumont Consulting Pulmonary Disease 11/12/19 [address] [place] [address] Robert Sanchez [facility] Pharmacist Pharmacy 09/06/21 [address] [place], [place] [id number] Dianne Garcia, [facility] General Surgery 02/20/23 SYSTEMS ARCHITECTURE ANALYST.DITCHING MACHINE ENGINEER 1 [place] [address] Annie Borges [facility] Transitional Care Pharmacy 02/21/23 03/22/23 [address] [facility] [place] [address] Carlos Cline, control equipment electrician Internal Medicine 02/21/23 03/23/23 [address] [facility] [place] [address] Cash Processor Panfilo Oreilly, Home Care Provider Family Medicine 02/21/23 [address] [place], [place] [id number] Bharat Gardner, factory clerkFilter Changing Technician Post Acute Care 02/21/23 [address] [place] [address] [employer] 12/17/17 [facility] Wound Center 07/23/18 Citizen [place] Home Patients 06/20/20 Bisque Tile Burner Relationship Specialty Start Date End Date Panfilo Oreilly, PCP - General Family Medicine 02/12/17 [address] [place], [place] 987361 Shreya Mccray, Endocrinology 07/23/18 [address] [place] [address] [place] Dumont Specialty Batch Maker Pulmonary Disease 12/23/18 [address] [place] [address] Brandee Cotter Consulting Endocrinology 11/09/19 (Missionary Coordinator) [address] [place], [place] [id number] [place] Dumont Consulting Pulmonary Disease 11/12/19 [address] [place] [address] Robert Sanchez, [facility] Pharmacist Pharmacy 09/06/21 [address] [place] [address] Dianne Garcia, [facility] General Surgery 02/20/23 SYSTEMS ARCHITECTURE ANALYST.DITCHING MACHINE ENGINEER 1 [place] [address] Annie Borges, [facility] Transitional Care Pharmacy 02/21/23 03/22/23 [address] [facility] [place] [address] Carlos Cline, control equipment electrician Internal Medicine 02/21/23 03/23/[address] [place] [address] Cash Processor Panfilo Oreilly, Home Care Provider Family Medicine 02/21/23 [address] [place], [place] [id number] Bharat Gardner, factory clerkFilter Changing Technician Post Acute Care 02/21/23 [address] [place], [place] [id number] [employer] 12/17/17 [facility] Wound Center 07/23/18 Citizen [place] Home Patients 06/20/20 Bisque Tile Burner Relationship Specialty Start Date End Date Panfilo Oreilly, PCP - General Family Medicine 02/12/17 [address] [place], [place] [id number] Shreya Mccray, Endocrinology 07/23/18 [address] [place], [place] [id number] [place] Dumont Specialty Batch Maker Pulmonary Disease 12/23/18 [address] [place] [address] Brandee Cotter Consulting Endocrinology 11/09/19 (Missionary Coordinator) [address] [place], [place] [id number] [place] Dumont Consulting Pulmonary Disease 11/12/19 [address] [place] [address] Robert Sanchez, [facility] Pharmacist Pharmacy 09/06/21 [address] [place] [address] Dianne Garcia, [facility] General Surgery 02/20/23 SYSTEMS ARCHITECTURE ANALYST.DITCHING MACHINE ENGINEER [address] [place] [address] Annie Borges, [facility] Transitional Care Pharmacy 02/21/23 03/22/23 [address] Pharmacist [place], [place] [id number] Carlos Cline, control equipment electrician Internal Medicine 02/21/23 03/23/[address] [place] [address] Cash Processor Panfilo Oreilly, Home Care Provider Family Medicine 02/21/23 [address] [place] [address] Bharat Gardner, factory clerkFilter Changing Technician Post Acute Care 02/21/23 [address] [place] [address] [employer] 12/17/17 [facility] Wound Center 07/23/18 Citizen [place] Home Patients 06/20/20 Bisque Tile Burner Relationship Specialty Start Date End Date Panfilo Oreilly, PCP - General Family Medicine 02/12/17 [address] [place], [place] [id number] Shreya Mccray, Endocrinology 07/23/18 [address] [place] [address] [place] Dumont Specialty Batch Maker Pulmonary Disease 12/23/18 [address] [place] [address] Brandee Cotter Consulting Endocrinology 11/09/19 (Missionary Coordinator) [address] [place] [address] [place] Dumont Consulting Pulmonary Disease 11/12/19 [address] [place] [address] Robert Sanchez, [facility] Pharmacist Pharmacy 09/06/21 [address] [place] [address] Dianne Garcia, [facility] General Surgery 02/20/23 SYSTEMS ARCHITECTURE ANALYST.DITCHING MACHINE ENGINEER [address] [place] [address] Annie Borges [facility] Transitional Care Pharmacy 02/21/23 03/22/23 [address]00 [facility] [place] [address] Carlos Cline, control equipment electrician Internal Medicine 02/21/23 03/23/23 [address] [place] [address] Cash Processor Panfilo Oreilly, Home Care Provider Family Medicine 02/21/23 [address] [place], [place] [id number] Bharat Gardner, factory clerkFilter Changing Technician Post Acute Care 02/21/23 [address] [place], [place] [id number] [employer] 12/17/17 [facility] Wound Center 07/23/18 Citizen [place] Home Patients 06/20/20 Bisque Tile Burner Relationship Specialty Start Date End Date Panfilo Oreilly, PCP - General Family Medicine 02/12/17 [address] [place], [place] [id number] Shreya Mccray, Endocrinology 07/23/18 [address] [place] [address] [place] Dumont Specialty Batch Maker Pulmonary Disease 12/23/18 [address] [place] [address] Brandee Cotter Consulting Endocrinology 11/09/19 (Missionary Coordinator) [address] [place], [place] [id number] [place] Dumont Consulting Pulmonary Disease 11/12/19 [address] [place] [address] Robert Sanchez, [facility] Pharmacist Pharmacy 09/06/21 [address] [place] [address] Dianne Garcia, [facility] General Surgery 02/20/23 SYSTEMS ARCHITECTURE ANALYST.DITCHING MACHINE ENGINEER [address] [facility] sigifredo [place], [place] [id number] Annie Borges, [facility] Transitional Care Pharmacy 02/21/23 03/22/23 [address] [place] [facility] [place] [address] Carlos Cline, control equipment electrician Internal Medicine 02/21/23 03/23/23 [address] [place] [address] Cash Processor Panfilo Oreilly, Home Care Provider Family Medicine 02/21/23 [address] [place], [place] [id number] Bharat Gardner, factory clerkFilter Changing Technician Post Acute Care 02/21/23 [address] [place], [place] [id number] [employer] 12/17/17 [facility] Wound Center 07/23/18 Citizen Of [place] Home Patients 06/20/20 Bisque Tile Burner Relationship Specialty Start Date End Date Panfilo Oreilly, PCP - General Family Medicine 02/12/17 [address] [place], [place] [id number] Shreya Mccray, Endocrinology 07/23/18 [address] [place], [place] [id number] [place] Dumont Specialty Batch Maker Pulmonary Disease 12/23/18 [address] [place] [address] Brandee Cotter Consulting Endocrinology 11/09/19 (Missionary Coordinator) [address] [place] [address] [place] Dumont Consulting Pulmonary Disease 11/12/19 [address] [place] [address] Robert Sanchez, [facility] Pharmacist Pharmacy 09/06/21 [address] [place], [place] [id number] Dianne Garcia, [facility] General Surgery 02/20/23 SYSTEMS ARCHITECTURE ANALYST.DITCHING MACHINE ENGINEER [address] [place] [address] Annie Borges, [facility] Transitional Care Pharmacy 02/21/23 03/22/23 [facility] [facility] [place] [address] Carlos Cline, control equipment electrician Internal Medicine 02/21/23 03/23/23 [address] [place] [address] Cash Processor Panfilo Oreilly, Home Care Provider Family Medicine 02/21/23 MD [address] [place], [place] [phone] Bharat Gardner, factory clerkFilter Changing Technician Post Acute Care 02/21/23 [address] [place] [address] [employer] 12/17/17 [facility] Wound Center 07/23/18 Citizen Of [place] Home Patients 06/20/20 Bisque Tile Burner Relationship Specialty Start Date End Date Panfilo Oreilly, PCP - General Family Medicine 02/12/17 [address] [place] [address] Shreya Mccray, Endocrinology 07/23/18 [address] [place] [address] [place] Dumont Specialty Batch Maker Pulmonary Disease 12/23/18 [address] [place] [address] Brandee Cotter Consulting Endocrinology 11/09/19 (Missionary Coordinator) [address] [place], [place] [id number] Berlin Dumont Consulting Pulmonary Disease 11/12/19 [address] [place] [address] Robert Sanchez, [facility] Pharmacist Pharmacy 09/06/21 [address] [place] [address] Dianne Garcia, [facility] General Surgery 02/20/23 SYSTEMS ARCHITECTURE ANALYST.DITCHING MACHINE ENGINEER [address] [place] [address] Annie Borges, [facility] Transitional Care Pharmacy 02/21/23 03/22/23 [address] [facility] [place] [address] Carlos Cline, control equipment electrician Internal Medicine 02/21/23 03/23/23 [address] [place] [address] Cash Processor Panfilo Oreilly, Home Care Provider Family Medicine 02/21/23 [address] [place], [place] [id number] Bharat Gardner, factory clerkFilter Changing Technician Post Acute Care 02/21/23 [address] [place], [place] [id number] [employer] 12/17/17 [facility] Wound Center 07/23/18 [place] Home Patients 06/20/20 Bisque Tile Burner Relationship Specialty Start Date End Date Panfilo Oreilly, PCP - General Family Medicine 02/12/17 [address] [place], [place] [address] Shreya Mccray, Endocrinology 07/23/18 [address] [place], [place] [id number] Berlin Dumont Specialty Batch Maker Pulmonary Disease 12/23/18 [address] [place] [address] Brandee Cotter Consulting Endocrinology 11/09/19 (Missionary Coordinator) [address] [place], [place] [id number] Berlin Dumont Consulting Pulmonary Disease 11/12/19 [address] [facility] [place] [address] Robert Sanchez, [facility] Pharmacist Pharmacy 09/06/21 [address] [place] [address] Dianne Garcia, [facility] General Surgery 02/20/23 SYSTEMS ARCHITECTURE ANALYST.DITCHING MACHINE ENGINEER [address] [place] [address] Annie Borges, [facility] Transitional Care Pharmacy 02/21/23 03/22/23 [address] Pharmacist [place], [place] [id number] Toccaceli, Denille, control equipment electrician Internal Medicine 02/21/23 03/23/23 [address] [place] [address] Cash Processor Panfilo Oreilly, Home Care Provider Family Medicine 02/21/23 [address] [place] [address] Bharat Gardner, factory clerkFilter Changing Technician Post Acute Care 02/21/23 [address] [place] [address] [employer] 12/17/17 [facility] Wound Center 07/23/18 Citizen [place] Home Patients 06/20/20 INFORMATION SOURCE (unrecognized section and content) DATE CREATED AUTHOR AUTHOR'S ORGANIZ ATION 12/11/2022 [facility] DATE CREATED AUTHOR AUTHOR'S ORGANIZATIO N 02/21/2023 [facility] DATE CREATED AUTHOR AUTHOR'S ORGANIZATIO N 02/28/2023 [facility] FOR RECORDS PERTAINING TO PATIENTS WHO ARE [...] BE BASED ON THE PRIMARY CLINICAL RECORDS. [facility] [employer] provides no warranty or guarantee of the accuracy or completeness of information in this document.
--- NOTE | 2023-03-02 16:38 | HP.PCM.HOS_ITS ---
[facility] - General General Date of Admission: 03/02/23 Date of Service: 03/02/23 Chief Complaint: shortness of breath. HPI Narrative MACARIO OVERTON, is a 47 F who presents with shortness of breath. Patient is currently on a BiPAP and is listless and the history is obtained to the emergency room physician as well as the patient's daughter. Patient became short of breath today. Patient is normally on oxygen at 3 L but was much more hypoxic. Patient had a venous blood gas showed pH is 7.2, PO2 of 60 PCO2 of 34. Patient was placed on a BiPAP. Patient had a chest x-ray that was concerning for a right upper lobe infiltrate and patient received methylprednisolone, ceftriaxone and azithromycin. REPLACED BY [facility] Medical History (Updated 03/02/23 @ 16:[address] Faraz Lantigua, ) Abscess Abscess of vulva KERRY (acute kidney injury) Anxiety BiPAP (biphasic positive airway pressure) dependence Chronic diastolic (congestive) heart failure Chronic respiratory failure with hypoxia Contusion of knee, right COPD (chronic obstructive pulmonary disease) Depression Diabetes Dyspnea on exertion Essential hypertension GERD (gastroesophageal reflux disease) Hidradenitis History of left heart catheterization (LHC) (~01/05/19) History of MRSA infection Hyperglycemia due to type 2 diabetes mellitus Hyperlipidemia Hypertension Morbid obesity Necrotizing soft tissue infection Non-healing open wound of left groin NSTEMI (non-ST elevated myocardial infarction) 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 Old myocardial infarction On home oxygen therapy Open wound of vulva with complication Opiate overdose Perianal abscess Pulmonary embolism Respiratory failure with hypoxia Restrictive lung disease secondary to obesity Sleep apnea Smoker Soft tissue abscess of inguinal region Tobacco abuse Type 2 diabetes mellitus Home Medications multivit-iron 18 mg-folic acid 400 mcg-calcium 500 mg-minerals tablet 1 ea PO DAILY supplement 03/26/17 [History Last Taken 12/09/22] omeprazole 40 mg capsule,delayed release 40 mg PO DAILY GERD 12/15/18 [History Last Taken 12/09/22] loratadine 10 mg tablet 10 mg PO DAILY PRN Allergies 03/01/20 [History Last Taken 12/09/22] apixaban 5 mg tablet 5 mg PO BID blood thinner 08/20/20 [History Last Taken 12/09/22] diltiazem HCl 120 mg capsule,extended release 24 hr 120 mg PO DAILY heart rate 08/20/20 [History Last Taken 12/09/22] lisinopril 10 mg tablet 10 mg PO DAILY blood pressure 03/26/21 [History Last Taken 12/09/22] metformin 500 mg tablet,extended release 24 hr 2,000 mg PO DAILY diabetes 03/26/21 [History Last Taken 01/15/22] metoprolol succinate 25 mg tablet,extended release 24 hr 25 mg PO DAILY blood pressure 03/26/21 [History Last Taken 12/09/22] atorvastatin 80 mg tablet 100 mg PO QHS Check with primary doctor 02/07/22 [ History Last Taken 12/09/22] furosemide 40 mg tablet 40 mg PO BID diuretic 09/22/22 [History Last Taken 12/09/22] ammonium lactate 12 % lotion 1 applic topical TID 30 days #400 grams 09/24/22 [Rx Last Taken 12/08/22] insulin lispro 100 unit/mL subcutaneous pen (Humalog KwikPen (U-100) Insulin) 50 unit (0.5 mL) subcut TIDAC #0 mL 09/24/22 [Rx Last Taken 12/09/22] albuterol sulfate 2.5 mg/3 mL (0.083 %) solution for nebulization 2.5 mg inhalation Q4H PRN SOB 12/09/22 [History Last Taken 12/08/22] empagliflozin 10 mg tablet (Jardiance) 10 mg PO DAILY DM 12/09/22 [History Last Taken 12/09/22] fenofibrate nanocrystallized 145 mg tablet 145 mg PO DAILY CHOLESTEROL 12/09/22 [History Last Taken 12/09/22] furosemide 20 mg tablet 20 mg PO PRN PRN Edema 12/09/22 [History Last Taken Unknown] gabapentin 800 mg tablet 800 mg PO TID NERVE PAIN 12/09/22 [History Last Taken 12/09/22] insulin glargine U-300 conc 300 unit/mL (3 mL) subcutaneous pen (Toujeo Max U- 300 SoloStar) 150 unit subcut DAILY DM 12/09/22 [History Last Taken 12/09/22] nicotine (polacrilex) 2 mg buccal mini lozenge 2 mg PO PRN PRN Smoking Cessation 12/09/22 [History Last Taken 12/08/22] potassium chloride 20 mEq tablet,extended release 20 meq PO BID Check with primary doctor 12/19/22 [History Last Taken Unknown] insulin degludec 200 unit/mL (3 mL) subcutaneous pen (Tresiba FlexTouch U-200 insulin) 104 unit subcut BID DM 12/24/22 [History Last Taken Unknown] Allergy/AdvReac Type Severity Reaction Status Date / Time cyclobenzaprine HCl Allergy Hives Verified 03/02/23 14:00 [From Flexeril] venlafaxine [From Effexor] AdvReac Severe unknown Verified 03/02/23 14:00 Family History Father CVA (cerebral vascular accident) Heart disease Diabetes Mother Thyroid disorder Surgical History H/O arthroscopic knee surgery History of delivery History of cholecystectomy Social History household members: none Smoking Status: Current some day smoker tobacco type: cigarettes how long ago did patient quit smokin PPD smoker second hand exposure: Yes alcohol intake: never substance use type: does not use caffeine: Yes Type: carbonated beverages Number of servings: 1 and coffee Number of servings: 1 ROS ROS Narrative Daughter states that the patient has recently lost 60 pounds of water weight. Is currently on a BiPAP and is not answering questions though it seems much of it is intentional not because she is obtunded. Vital Signs Vital Signs Vital Signs: 03/02/23 13:55 03/02/23 14:23 03/02/23 14:32 Temperature 36.2 C L Temperature Source Temporal Pulse Rate 106 H 95 Respiratory Rate 22 H 19 H Respiratory Effort Respiratory Depth Respiratory Pattern Blood Pressure 119/60 Blood Pressure Mean 79 Pulse Ox 87 92 Oxygen Delivery Method Nasal Cannula High Flow Oxygen Flow Rate (L/min) 5 8 Fraction of Inspired Oxygen (FIO2) 03/02/23 15:00 03/02/23 15:03 03/02/23 14:50 Temperature Temperature Source Pulse Rate 95 Respiratory Rate 24 H 24 H Respiratory Effort Short of Breath Respiratory Depth Shallow Respiratory Pattern Tachypnea Blood Pressure 108/64 Blood Pressure Mean 78 Pulse Ox 91 91 Oxygen Delivery Method Bi-pap Nasal Cannula Oxygen Flow Rate (L/min) 3 Fraction of Inspired Oxygen (FIO2) 35 03/02/23 15:54 04/02/23 15:06 03/02/23 15:08 Temperature 36.6 C Temperature Source Temporal Pulse Rate 88 Respiratory Rate 23 H Respiratory Effort Respiratory Depth Respiratory Pattern Blood Pressure 108/64 Blood Pressure Mean 78 Pulse Ox 88 85 91 Oxygen Delivery Method Bi-pap Oxygen Flow Rate (L/min) Fraction of Inspired Oxygen (FIO2) 35 40 Weight Weight: 171.4 kg Body Mass Index (BMI) 62.8 Physical Exam Const Constitutional Narrative: . Morbidly obese. HEENT normocephalic and head/scalp atraumatic Eyes Eyes Narrative: Did not open them on exam or during the entire encounter. Neck Neck Narrative: Neck tissue today. Resp Resp Narrative: Sounds bilaterally Cardio Cardio Narrative: Regular. GI normal to inspection, nondistended, normoactive bowel sounds, soft to palpation and non-tender GI Narrative: (Exam with female staff present) With a very large pannus. Vulvar wound appears beefy red, but no surrounding erythema. I did not appreciate any right sided wound Extremity Extremity Narrative: Bilateral lymphedematous changes with venous stasis dermatitis. Patient does have a wound on her left lower extremity and does have a bandage overlying. Did not remove the bandage. No significant edema in the lower extremities. Neuro moves all extremities Neuro Narrative: Given this reluctance to engage in them. Psych affect normal Results Lab / Micro Data Result Diagrams: 03/02/23 14:20 03/02/23 14:20 Labs: Laboratory Results - last 24 hr 03/02/23 14:20: WBC 12.6 H, RBC 3.59 L, Hgb 9.4 L, Hct 33.0 L, MCV 91.9, MCH 26.2 L, MCHC 28.5 L, RDW Std Deviation 57.3 H, RDW Coeff of Darrion 17.0 H, Plt Count 278, MPV 9.6, Immature Gran % (Auto) 1.600 H, Neut % (Auto) 77.6 H, Lymph % (Auto) 15.5 L, [place] % (Auto) 3.8, Eos % (Auto) 0.7, Baso % (Auto) 0.8, Absolute Neuts (auto) 9.7 H, Absolute Lymphs (auto) 1.94, Nucleated RBC % 2.3 03/02/23 14:20: Sodium 136, Potassium 4.4, Chloride 102, Carbon Dioxide 30.0, Anion Gap 4 L, BUN 12, Creatinine 0.88, Estim Creat Clear Calc 72.64, Est GFR (MDRD) Af Amer 89, Est GFR (MDRD) Non-Af 73, BUN/Creatinine Ratio 13.6, Glucose 261 H, Calcium 8.9, Total Bilirubin 0.30, AST 14 L, ALT 18, Alkaline Phosphatase 59, Total Protein 7.2, Albumin 2.7 L, Globulin 4.5 H, Albumin/Globulin Ratio 0.6 L 03/02/23 14:20: Lactic Acid 2.6 H* 03/02/23 14:20: B-Natriuretic Peptide 68.4 03/02/23 14:24: POC Glucose 250 H ABG Data ABG results: ABG 03/02/23 14:42 Specimen Type DAMION VBG pH 7.29 L VBG pO2 60 H VBG HCO3 32 H VBG Total CO2 34 H VBG O2 Sat (Calc) 87 H VBG Base Excess 6 H POC Mix VBG pCO2 Pt Tmp 67.1 H Radiology Impression Chest X-Ray 03/02/23 14:08 IMPRESSION: Pulmonary findings appear worse. Electronically Signed: George Leiva MD at 15:24 EDT Reading Location ID and State: [facility] / [place] , Service support , Assessment & Plan Assessment/Plan (1) Acute on chronic respiratory failure with hypercapnia: PLAN: Hypoxia and hypercapnia Multifactorial: Due to pneumonia, obesity hypoventilation, possible CHF, Currently on BiPAP Check ABG Bronchodilators IV furosemide Methylprednisolone CCM consult Cannot rule out the possibility of endotracheal intubation. (2) Pneumonia: PLAN: Patient has recent been hospitalized just recently so we will treat her for potential healthcare acquired pneumonia. See if ceftriaxone azithromycin emergency room, I will change it over to Pipracil/tazobactam and vancomycin PEP Therapy (3) Perianal abscess: PLAN: Left vulvar wound appears to be healing. Reviewed records through [facility] via [employer]: Patient was found to have necrotizing fasciitis of her left groin on December 24. Patient underwent debridement on the . Patient was subsequently discharged from that and then returned on January 13 with pain in the right groin and patient went to the OR and had incision and drainage at that time on the right side. Patient had follow-up appointment on the which they switched her over to dry dressing. Vancomycin was discontinued at that time. We will consult wound care for routine wound management. (4) Type 2 diabetes mellitus with hyperglycemia: PLAN: Insulin-dependent Basal insulin Hold off on scheduled log until patient can be eating normally Hold Jardiance and metformin Sliding scale insulin (5) Acidosis, lactic: PLAN: Likely secondary to hypoxia No additional work up at this time. PLAN: Plan Chronic medical conditions * Obesity with a BMI 62.9 kg/m? complicates care and long-term recovery. * Heart failure preserved ejection fraction * Adrenal incidentaloma: continue appropriate follow up if still indicated. * GERD: PPI * History of narcotic abuse * LOGAN: Uses CPAP. * VTE: apixaban * HTN: continue lisinopril * HLP: hold statin for the time being * nicotine abuse: smokes and/or vapes. Cessation instructions when pt more alert and appropriate. VTE prophylaxis: not indicated as pt already on anticoagulation. Charges/Coding Visit Charges Inpatient E&M: 03200 Init Hosp L3
--- OUTSIDE RECORDS SUMMARY | 2023-03-02 16:52 | XMS RPT_ITS | CCD ---
:1975 [facility] Providers Name Role Phone Panfilo Oreilly MD Primary Care Provider Shreya Mccray Unavailable [place] Dumont Unavailable Brandee Cotter ([facility]) Unavailable [place] Dumont Unavailable [facility], Robert Unavailable PANFILO OREILLY Referring Unavailable PANFILO OREILLY Primary Care Unavailable Panfilo Oreilly MD Primary Care Provider Shreya Mccray MD Unavailable [place] Dumont Unavailable Brandee Cotter ([facility]) Unavailable [place] Dumont Unavailable [facility], Robert Unavailable Shonna [facility], Brissa Unavailable Keo RN, [...] BURSLEY, CHRISTOPHER B Primary Care Unavailable Borges [facility], Annie Unavailable Son VENTURA, [...] BURSLEY, CHRISTOPHER B Primary Care Unavailable PANFILO ORIELLY Referring Unavailable PANFILO OREILLY Primary Care Unavailable [...] Suspended Start: 07-09-2022 flash glucose sensor (FREESTYLE DOMENIOC 14 DAY SENSOR) kit 1 Each End: [...] mouth twice mg tab(s) daily Indications: Ac [place] pulmonary embol ism without acute c or [...] 20 mg tabl et daily Indications: Ac [place] diastolic CHF (congestive hea rt failure) ([facility]) , Bilateral lower extremity edema Take 1 tablet by rosalee th twice daily. Ta ke BID with 80 mg lasix to equal 100 mg BID 60 tablet 2 12/12/2022 Acti ve Start: 03-29-2022 furosemide (LASIX) 4 0 mg tablet Indications: Chronic diastolic End: 07-09-2022 heart failure ([facility]) Take 1-2 tablets BID for lower extremity edema 120 tablet 5 0 07/09/2022 Active Start: 12-12-2021 furosemide (LASIX) 4 0 mg tablet Indications: Chronic diastolic End: 01-14-2022 heart failure ([facility]) Take 1-2 tablets BID for lower [...] with long-term curre nt use of insulin (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 CNPN on 02-24-2023 CNPN Normal [facility] CNCO on 02-21-2023 CNCO Letter Text Normal [facility] CNPN on 02-21-2023 CNPN Normal [facility] CNPTOUTREACH on 02-21-2023 CNPTOUTREACH Normal [facility] Basic metabolic 2000 panel on 3 Anion gap [Moles/Vol] 8 mmol/L Low - [facility] Comment on above: Order Comment: Specimen Type : BLOOD SPECIMENOrdering Facility: [facility] Address: [address] [place], [place] [address] Performed By: #### 96691-2 # ###[facility]ORATORYCLIA [id number] [place] [address] [place] Calcium [Mass/Vol] 8.9 mg/dL Normal 8.5-10.2 [facility] Comment on above: Order Comment: Specimen Type : BLOOD SPECIMENOrdering Facility: [facility] Address: [address] [place] [address] Performed By: #### 29992-2 # ###[facility]ORATORYCLIA [id number] [place] [address] [place] Chloride [Moles/Vol] 99 mmol/L Normal 97-105 [facility] Comment on above: Order Comment: Specimen Type : BLOOD SPECIMENOrdering Facility: [facility] Address: [address] [address] Performed By: #### 83968-2 # ###[facility]ORATORYCLIA [id number] [place] [address] [place] CO2 [Moles/Vol] 30 mmol/L Normal 22-30 [facility] Comment on above: Order Comment: Specimen Type : BLOOD SPECIMENOrdering Facility: [facility] Address: [address] [address] Performed By: #### 09090-6 # ###[facility]ATORYCLIA [id number] [place] [address] [place] Creatinine [Mass/Vol] 0.59 mg/dL Normal 0.58-0.96 [facility] Comment on above: Order Comment: Specimen Type : BLOOD SPECIMENOrdering Facility: [facility] Address: [address] [address] Performed By: #### 77627-9 # ###[facility]ORATORYCLIA [id number] [address] [place] ESTIMATED GLOMERULAR 113 mL/min/1.73m??? Normal >=60 [facility] FILTRATION RATE [place] Comment on above: Order Comment: Specimen Type : BLOOD SPECIMENOrdering Facility: [facility] Address: [address] [place] [address] Result Comment: Estimated Gl omerular Filtration Rate [...] accurately reflect actual GFR. Performed By: #### 72146-8 # ###[facility] HOSPITALCLIA [id number] [place] [address] [place] Glucose [Mass/Vol] 127 mg/dL High 74-99 [facility] Comment on above: Order Comment: Specimen Type : BLOOD SPECIMENOrdering Facility: [facility] Address: [address] [id number] Result Comment: The English Diabetes Association (ADA) provides guidance for cutoff [...] of Medical Care in Diabetes 2016, [facility] Diabetes Association. Diabetes Care. 2016.39(Suppl 1). Performed By: #### 65928-5 # ###[facility] LABORATORYIA [id number] [place] [address] [place] Potassium [Moles/Vol] 4.3 mmol/L Normal 3.7-5.1 [facility] Comment on above: Order Comment: Specimen Type : BLOOD SPECIMENOrdering Facility: [facility] Address: [address] [place] [address] Performed By: #### 64223-6 # ###[facility]ORATORYCLIA [id number] [place] [address] [place] Sodium [Moles/Vol] 137 mmol/L Normal 136-144 [facility] Comment on above: Order Comment: Specimen Type : BLOOD SPECIMENOrdering Facility: [facility] Address: [address] [address] Performed By: #### 32989-0 # ###[facility]ORATORYCLIA [id number] [place] [address] [place] Urea nitrogen [Mass/Vol] 8 mg/dL Normal 7-21 [facility] Comment on above: Order Comment: Specimen Type : BLOOD SPECIMENOrdering Facility: [facility] Address: [address] [address] Performed By: #### 42375-3 # ###[facility]ORATORYCLIA [id number] [place] [address] [facility] [place] CASE MANAGEM on 02-20-2023 CASE MANAGEM Normal [facility] CBC panel Auto (Bld) on 02-20-2023 Erythrocyte distribution width 16.0 % High 11.5-15.0 [facility] (RBC) [Ratio] Comment on above: Order Comment: Specimen Type : BLOOD SPECIMENOrdering Facility: [facility] Address: [address] [address] Performed By: #### 51522-9 # ###[facility]ORATORYCLIA [id number] [place] [address] [place] Hematocrit (Bld) [Volume fraction] 31.3 % Low 36.0-4 6.0 [facility] Comment on above: Order Comment: Specimen Type : BLOOD SPECIMENOrdering Facility: [facility] Address: [address] [address] Performed By: #### 42734-4 # ###[facility]ORATORYCLIA [id number] [address] [place] Hemoglobin (Bld) [Mass/Vol] 8.8 g/dL Low 11.5-15.5 [facility] Comment on above: Order Comment: Specimen Type : BLOOD SPECIMENOrdering Facility: [facility] Address: [address] [address] Performed By: #### 38124-5 # ###[facility]ORATORYCLIA [id number] [address] MCH (RBC) [Entitic mass] 25.8 pg Low 26.0-34.0 [facility] Comment on above: Order Comment: Specimen Type : BLOOD SPECIMENOrdering Facility: [facility] Address: [address] [address] Performed By: #### 62181-0 # ###[facility]ORATORYCLIA [id number] [address] MCHC (RBC) [Mass/Vol] 28.1 g/dL Low 30.5-36.0 [facility] Comment on above: Order Comment: Specimen Type : BLOOD SPECIMENOrdering Facility: [facility] Address: [address] [address] Performed By: #### 71836-0 # ###[facility]ORATORYCLIA [id number] [address] MCV (RBC) [Entitic vol] 91.8 fL Normal 80.0-100.0 [facility] Comment on above: Order Comment: Specimen Type : BLOOD SPECIMENOrdering Facility: [facility] Address: [address] [address] Performed By: #### 84275-4 # ###[facility]ORATORYCLIA [id number] [address] Nucleated RBC (Bld) [#/Vol] 0.02 10*3/uL High <0.01 [facility] Comment on above: Order Comment: Specimen Type : BLOOD SPECIMENOrdering Facility: [facility] Address: [address] [address] Performed By: #### 58021-2 # ###[facility]ORATORYCLIA [id number] [place] [address] [place] Platelet mean volume (Bld) 9.8 fL Normal 9.0-12.7 A [facility] [Entitic vol] Comment on above: Order Comment: Specimen Type : BLOOD SPECIMENOrdering Facility: [facility] Address: [address] [place] [address] Performed By: #### 43331-6 # ###[facility]ORATORYCLIA [id number] [facility] [place], [facility] [place] Platelets (Bld) [#/Vol] 264 10*3/uL Normal 150-400 [facility] Comment on above: Order Comment: Specimen Type : BLOOD SPECIMENOrdering Facility: [facility] Address: [address] [address] Performed By: #### 10484-0 # ###[facility]ORATORYCLIA [id number] [facility] [place], [place] [address] [place] RBC (Bld) [#/Vol] 3.41 10*6/uL Low 3.90-5.20 [facility] Comment on above: Order Comment: Specimen Type : BLOOD SPECIMENOrdering Facility: [facility] Address: [address] [address] Performed By: #### 82927-5 # ###[facility]ATORYCLIA [id number] [facility] [place], [facility] [place] WBC (Bld) [#/Vol] 9.61 10*3/uL Normal 3.70-11.00 [facility] Comment on above: Order Comment: Specimen Type : BLOOD SPECIMENOrdering Facility: [facility] Address: [address] [address] Performed By: #### 22526-2 # ###[facility]ORATORYCLIA [id number] [facility], [facility] [place] CNDS on 02-20-2023 CNDS Normal [facility] CNPN on 02-20-2023 CNPN Normal [facility] CONSULT PROG on 02-20-2023 CONSULT PROG Normal [facility] CONSULT PROG Normal [facility] CONSULT PROG Normal [facility] aPTT PPP on 02-20-2023 aPTT Coag (PPP) [Time] 45.5 s High 23.0-32.4 [facility] Comment on above: Order Comment: Specimen Type : BLOOD SPECIMENOrdering Facility: [facility] Address: [address] [place] [address] Performed By: #### 61207-4 # ###[facility]ORATORYCLIA [id number] [address] [place] aPTT Coag (PPP) [Time] 39.7 s High 23.0-32.4 [facility] Comment on above: Order Comment: Specimen Type : BLOOD SPECIMENOrdering Facility: [facility] Address: [address] [place] [address] Performed By: #### 76723-8 # ###[facility]ORATORYCLIA [id number] [facility], [place] [address] [place] ALLIED HEALTH on 02-19-2023 ALLIED HEALTH Normal [facility] Basic metabolic 2000 panel on 3 Anion gap [Moles/Vol] 7 mmol/L Low 9-18 [facility] Comment on above: Order Comment: Specimen Type : BLOOD SPECIMENOrdering Facility: [facility] Address: [address] [place] [address] Performed By: #### 60509-5 # ###[facility]ORATORYCLIA [id number] [facility], [place] [address] [place] Calcium [Mass/Vol] 8.9 mg/dL Normal 8.5-10.2 [facility] Comment on above: Order Comment: Specimen Type : BLOOD SPECIMENOrdering Facility: [facility] Address: [address] [place] [address] Performed By: #### 28533-6 # ###[facility]ORATORYCLIA [id number] [facility], [place] [address] [place] Chloride [Moles/Vol] 103 mmol/L Normal 97-105 [facility] Comment on above: Order Comment: Specimen Type : BLOOD SPECIMENOrdering Facility: [facility] Address: [address] [place] [address] Performed By: #### 63638-6 # ###[facility] HOSPITALCLIA [id number] [address] [place] CO2 [Moles/Vol] 30 mmol/L Normal 22-30 [facility] Comment on above: Order Comment: Specimen Type : BLOOD SPECIMENOrdering Facility: [facility] Address: [address] [address] Performed By: #### 98840-3 # ###[facility] CENTERIA [id number] [address] [place] Creatinine [Mass/Vol] 0.65 mg/dL Normal 0.58-0.96 [facility] Comment on above: Order Comment: Specimen Type : BLOOD SPECIMENOrdering Facility: [facility] Address: [address] [address] Performed By: #### 03131-6 # ###[facility] CENTERIA [id number] [address] ESTIMATED GLOMERULAR 111 mL/min/1.73m??? Normal >=60 [facility]TR[facility] RATE Center Comment on above: Order Comment: Specimen Type : BLOOD SPECIMENOrdering Facility: [facility] Address: [address] [place] [address] Result Comment: Estimated Gl omerular Filtration Rate [...] accurately reflect actual GFR. Performed By: #### 55319-3 # ###[facility]ATORYCLIA [id number] [address] [place] Glucose [Mass/Vol] 154 mg/dL High 74-99 [facility] Comment on above: Order Comment: Specimen Type : BLOOD SPECIMENOrdering Facility: [facility] Address: [address] [place] [address] Result Comment: The English Diabetes Association (ADA) provides guidance for cutoff [...] Standards of Medical Care in Diabetes 2016, [facility] Diabetes Association. Diabetes Care. 2016.39(Suppl 1). Performed By: #### 16809-8 # ###[facility]ORATORYCLIA [id number] [place] [address] [place] Potassium [Moles/Vol] 4.5 mmol/L Normal 3.7-5.1 [facility] Comment on above: Order Comment: Specimen Type : BLOOD SPECIMENOrdering Facility: [facility] Address: [address] [place] [address] Performed By: #### 81556-1 # ###[facility]ATORYCLIA [id number] [place] [address] [place] Sodium [Moles/Vol] 140 mmol/L Normal 136-144 [facility] Comment on above: Order Comment: Specimen Type : BLOOD SPECIMENOrdering Facility: [facility] Address: [address] [place] [address] Performed By: #### 52087-7 # ###[facility]ORATORYCLIA [id number] [place] [address] [place] Urea nitrogen [Mass/Vol] 11 mg/dL Normal 7-21 [facility] Comment on above: Order Comment: Specimen Type : BLOOD SPECIMENOrdering Facility: [facility] Address: [address] [address] Performed By: #### 20392-6 # ###[facility]ORATORYCLIA [id number] [address] [place] CASE MGT INIT ASSES on 02-19-2023 CASE MGT INIT ASSES Normal [facility] CBC panel Auto (Bld) on 02-19-2023 Erythrocyte distribution width 16.4 % High 11.5-15.0 [facility] (RBC) [Ratio] Comment on above: Order Comment: Specimen Type : BLOOD SPECIMENOrdering Facility: [facility] Address: [address] [place] [address] Performed By: #### 73446-9 # ###[facility]ORATORYCLIA [id number] [address] [place] Hematocrit (Bld) [Volume fraction] 32.1 % Low 36.0-4 6.0 [facility] Comment on above: Order Comment: Specimen Type : BLOOD SPECIMENOrdering Facility: [facility] Address: [address] [place] [address] Performed By: #### 89633-6 # ###[facility]ORATORYCLIA [id number] [address] [place] Hemoglobin (Bld) [Mass/Vol] 9.3 g/dL Low 11.5-15.5 [facility] Comment on above: Order Comment: Specimen Type : BLOOD SPECIMENOrdering Facility: [facility] Address: [address] [address] Performed By: #### 85827-9 # ###[facility]ORATORYCLIA [id number] [address] [place] MCH (RBC) [Entitic mass] 26.6 pg Normal 26.0-34.0 [facility] Comment on above: Order Comment: Specimen Type : BLOOD SPECIMENOrdering Facility: [facility] Address: [address] [place] [address] Performed By: #### 07004-1 # ###[facility]ORATORYCLIA [id number] [facility], [address] STATES [facility] MCHC (RBC) [Mass/Vol] 29.0 g/dL Low 30.5-36.0 [facility] Comment on above: Order Comment: Specimen Type : BLOOD SPECIMENOrdering Facility: [facility] Address: [address] [place] [address] Performed By: #### 26031-2 # ###[facility]ORATORYCLIA [id number] [facility], [address] [place] MCV (RBC) [Entitic vol] 92.0 fL Normal 80.0-100.0 [facility] Comment on above: Order Comment: Specimen Type : BLOOD SPECIMENOrdering Facility: [facility] Address: [address] [place] [address] Performed By: #### 12956-3 # ###[facility]ATORYCLIA [id number] [address] Nucleated RBC (Bld) [#/Vol] 10*3/uL Normal <0.01 [facility] Comment on above: Order Comment: Specimen Type : BLOOD SPECIMENOrdering Facility: [facility] Address: [address] [place] [address] Performed By: #### 70140-6 # ###[facility]ORATORYCLIA [id number] [address] STATES [facility] Platelet mean volume (Bld) 9.8 fL Normal 9.0-12.7 [facility] [Entitic vol] Comment on above: Order Comment: Specimen Type : BLOOD SPECIMENOrdering Facility: [facility] Address: [address] [place] [address] Performed By: #### 46625-4 # ###[facility]ORATORYCLIA [id number] [facility], [address] [place] Platelets (Bld) [#/Vol] 282 10*3/uL Normal 150-400 [facility] Comment on above: Order Comment: Specimen Type : BLOOD SPECIMENOrdering Facility: [facility] Address: [address] [address] Performed By: #### 19756-0 # ###[facility]ORATORYCLIA [id number] [place] [address] [place] RBC (Bld) [#/Vol] 3.49 10*6/uL Low 3.90-5.20 [facility] Comment on above: Order Comment: Specimen Type : BLOOD SPECIMENOrdering Facility: [facility] Address: [address] [address] Performed By: #### 76108-2 # ###[facility]ATORYCLIA [id number] [place] [address] [place] WBC (Bld) [#/Vol] 11.20 10*3/uL High 3.70-11.00 [facility] Comment on above: Order Comment: Specimen Type : BLOOD SPECIMENOrdering Facility: [facility] Address: [address] [address] Performed By: #### 89212-6 # ###[facility]ORATORYCLIA [id number] [address] [place] Erythrocyte distribution width 16.4 % High 11.5-15.0 [facility] (RBC) [Ratio] Comment on above: Order Comment: Specimen Type : BLOOD SPECIMENOrdering Facility: [facility] Address: [address] [address] Performed By: #### 56151-0 # ###[facility]ORATORYCLIA [id number] [address] Hematocrit (Bld) [Volume fraction] 33.4 % Low 36.0-4 6.0 [facility] Comment on above: Order Comment: Specimen Type : BLOOD SPECIMENOrdering Facility: [facility] Address: [address] [address] Performed By: #### 44012-5 # ###[facility]ORATORYCLIA [id number] [facility], [address] [place] Hemoglobin (Bld) [Mass/Vol] 9.3 g/dL Low 11.5-15.5 [facility] Comment on above: Order Comment: Specimen Type : BLOOD SPECIMENOrdering Facility: [facility] Address: [address] [place] [address] Performed By: #### 91621-8 # ###[facility]ORATORYCLIA [id number] [address] OF [facility] MCH (RBC) [Entitic mass] 25.9 pg Low 26.0-34.0 [facility] Comment on above: Order Comment: Specimen Type : BLOOD SPECIMENOrdering Facility: [facility] Address: [address] [place] [address] Performed By: #### 14269-9 # ###[facility]ORATORYCLIA [id number] [address] OF [facility] MCHC (RBC) [Mass/Vol] 27.8 g/dL Low 30.5-36.0 [facility] Comment on above: Order Comment: Specimen Type : BLOOD SPECIMENOrdering Facility: [facility] Address: [address] [place] [address] Performed By: #### 53240-9 # ###[facility]ORATORYCLIA [id number] [address] [place] MCV (RBC) [Entitic vol] 93.0 fL Normal 80.0-100.0 [facility] Comment on above: Order Comment: Specimen Type : BLOOD SPECIMENOrdering Facility: [facility] Address: [address] [place] [address] Performed By: #### 29035-3 # ###[facility]ATORYCLIA [id number] [address] OF [facility] Nucleated RBC (Bld) [#/Vol] 10*3/uL Normal <0.01 [facility] Comment on above: Order Comment: Specimen Type : BLOOD SPECIMENOrdering Facility: [facility] Address: [address] [address] Performed By: #### 57622-7 # ###[facility]ORATORYCLIA [id number] [place] [address] [facility] [place] Platelet mean volume (Bld) 9.8 fL Normal 9.0-12.7 [facility] [Entitic vol] Comment on above: Order Comment: Specimen Type : BLOOD SPECIMENOrdering Facility: [facility] Address: [address] Performed By: #### 64906-2 # ###[facility]ORATORYCLIA [id number] [place] [address] [place] Platelets (Bld) [#/Vol] 292 10*3/uL Normal 150-400 [facility] Comment on above: Order Comment: Specimen Type : BLOOD SPECIMENOrdering Facility: [facility] Address: [address] Performed By: #### 85459-3 # ###[facility]ORATORYCLIA [id number] [place] [address] [place] RBC (Bld) [#/Vol] 3.59 10*6/uL Low 3.90-5.20 [facility] Comment on above: Order Comment: Specimen Type : BLOOD SPECIMENOrdering Facility: [facility] Address: [address] Performed By: #### 37442-0 # ###[facility]ORATORYCLIA [id number] [facility] [address] [place] [id number] [place] [address] [place] WBC (Bld) [#/Vol] 11.49 10*3/uL High 3.70-11.00 [facility] Comment on above: Order Comment: Specimen Type : BLOOD SPECIMENOrdering Facility: [facility] Address: [address] [address] Performed By: #### 10491-4 # ###[facility]ORATORYCLIA [id number] [place] [address] [place] CNPN on 02-19-2023 CNPN Normal [facility] CONSULT on 02-19-2023 CONSULT Normal [facility] CONSULT PROG on 02-19-2023 CONSULT PROG Normal [facility] Comprehensive metabolic 2000 panel on 0 02-19-2023 Albumin [Mass/Vol] 3.4 g/dL Low 3.9 - 4.9 g/dL [facility] ALP [Catalytic 64 U/L 34 - 123 U/L [facility] activity/Vol] ALT [Catalytic 12 U/L 7 - 38 U/L [facility] activity/Vol] Anion gap [Moles/Vol] 7 mmol/L Low 9 - 18 mmol/L [facility] AST [Catalytic 12 U/L Low 13 - 35 U/L [facility] rebecca activity/Vol] Bilirubin [Mass/Vol] 0.2 mg/dL 0.2 - 1.3 mg/dL [facility] Calcium [Mass/Vol] 8.8 mg/dL 8.5 - 10.2 mg/dL [facility] Chloride [Moles/Vol] 100 mmol/L 97 - 105 mmol/L [facility] CO2 [Moles/Vol] 29 mmol/L 22 - 30 mmol/L [facility] Creatinine [Mass/Vol] 0.76 mg/dL 0.58 - 0.96 mg/dL C [facility] Estimated Glomerular 99 mL/min/1.73m >=60 mL/min/1.73m [facility] Filtration Rate Glucose [Mass/Vol] 153 mg/dL High 74 - 99 mg/dL [facility] Potassium [Moles/Vol] 5.0 mmol/L 3.7 - 5.1 mmol/L [facility] Protein [Mass/Vol] 6.7 g/dL 6.3 - 8.0 g/dL [facility] Sodium [Moles/Vol] 136 mmol/L 136 - 144 mmol/L [facility] Urea nitrogen [Mass/Vol] 16 mg/dL 7 - 21 mg/dL [facility] ED NOTE on 02-19-2023 ED NOTE HNO ID: [id number] Normal [facility] Author: Anita Jason RN Service: ? Author Type: Registered Nurse Type: ED Notes Filed: 02/19/2023 12:25 AM Note Text: Bed: 12-ED Expected date: Expected time: Means of arrival: Comments: [place] transfer ED PROV NOTE on 02-19-2023 ED PROV NOTE Normal [facility] ED PROV NOTE Normal [facility] HISTORY PHYSICAL on 02-19-2023 HISTORY PHYSICAL Normal [facility] LIPID PANEL, NONFASTING on 02-19-2023 Cholesterol [Mass/Vol] 148 mg/dL <200 mg/dL [facility] HDL Cholesterol, Nonfasting 37 mg/dL Low >39 mg/dL [facility] LDL Cholesterol, Nonfasting 87 mg/dL <100 mg/dL [facility] LDL/HDL Ratio, Nonfasting 2.35 mg/dL <2.54 mg/dL [facility] Non HDL Cholesterol, Nonfasting 111 mg/dL <130 mg/d L [facility] Total Chol/HDL Ratio, Nonfasting 4.00 mg/dL <5.10 mg /dL [facility] Triglycerides, Nonfasting 122 mg/dL <150 mg/dL [facility] VLDL Cholesterol, Nonfasting 24 mg/dL <30 mg/dL [facility] NURSING PROG on 02-19-2023 NURSING PROG Normal [facility] PT panel Coag (PPP) on 02-19-2023 INR Coag (PPP) [Relative time] 1.1 {INR} Normal 0.9-1.3 [facility] Comment on above: Order Comment: Specimen Type : BLOOD SPECIMENOrdering Facility: [facility] Address: [address] [place] [id number] Result Comment: Vitamin K An tagonist (VKA) [...] al. Chest 2012, 141:7S-47SCristel RA, et al. [facility] 2017, 70: 25 2-289 Performed By: #### 15269-4, 94586-7 ####[facility] H[facility]PITALCLIA [id number] [address] STATES OF [facility] PT Coag (PPP) [Time] 11.4 s Normal 9.7-13.0 [facility] Comment on above: Order Comment: Specimen Type : BLOOD SPECIMENOrdering Facility: [facility] Address: [address] [place] [address] Performed By: #### 48445-9, 08063-1 ####[facility] HOSPITALCLIA [id number] [address] URINALYSIS, REFLEX MICROSCOPIC on 02-19 Bacteria LM.HPF (Urine sed) Few Abnormal None Seen [facility] [#/Area] Comment on above: Order Comment: Specimen Type : URINE SPECIMENOrdering Facility: [facility] Address: [address] [place] [address] Performed By: #### [id number] # ###[facility] HOSPITALCLIA [id number] [address] Bilirubin Ql (U) Negative Normal Negative [facility] Comment on above: Order Comment: Specimen Type : URINE SPECIMENOrdering Facility: [facility] Address: [address] [place] [address] Performed By: #### [id number] # ###[facility] HOSPITALCLIA [id number] [address] Clarity (Unsp spec) Clear Normal Clear [facility] Comment on above: Order Comment: Specimen Type : URINE SPECIMENOrdering Facility: [facility] Address: [address] [address] Performed By: #### [id number] # ###[facility]ORATORYCLIA [id number] [facility] [place] [address] [place] Color (U) Light Yellow Normal yellow [facility] Comment on above: Order Comment: Specimen Type : URINE SPECIMENOrdering Facility: [facility] Address: [address] [place] [address] Performed By: #### [id number] # ###[facility]ORATORYCLIA [id number] [facility] [place] [id number] [place] [address] [place] Glucose Test strip (U) 4+ Abnormal Trace, Negative [facility] [Mass/Vol] Center Comment on above: Order Comment: Specimen Type : URINE SPECIMENOrdering Facility: [facility] Address: [address] [place] [address] Performed By: #### [id number] # ###[facility]ORATORYCLIA [id number] [facility], [address] [address] [place] Hemoglobin Ql (U) 2+ Abnormal Negative, Trace [facility] Comment on above: Order Comment: Specimen Type : URINE SPECIMENOrdering Facility: [facility] Address: [address] [place] [address] Performed By: #### [id number] # ###[facility]ORATORYCLIA [id number] [facility] [place] [id number] [place] [address] [place] Ketones Ql (U) Negative Normal Negative, Trace [facility] Comment on above: Order Comment: Specimen Type : URINE SPECIMENOrdering Facility: [facility] Address: [address] [place] [address] Performed By: #### [id number] # ###[facility]ORATORYCLIA [id number] [facility] [place] Leukocyte esterase Test 500 Robert/uL Abnormal Negative, 25 Robert/ uL [facility] Medical strip Ql (U) Center Comment on above: Order Comment: Specimen Type : URINE SPECIMENOrdering Facility: [facility] Address: [address] [address] Performed By: #### [id number] # ###[facility] LABORATORYCLIA [id number] [address] [id number] [place] Nitrite Ql (U) Negative Normal Negative [facility] Comment on above: Order Comment: Specimen Type : URINE SPECIMENOrdering Facility: [facility] Address: [address] [address] Performed By: #### [id number] # ###[facility]ORATORYCLIA [id number] [address] [id number] [place] pH (U) 5.5 [pH] Normal 5.0-8.0 [facility] Comment on above: Order Comment: Specimen Type : URINE SPECIMENOrdering Facility: [facility] Address: [address] [place] [address] Performed By: #### [id number] # ###[facility] HOSPITALCLIA [id number] [address] Protein (U) [Mass/Vol] 1+ Abnormal Trace, Negative [facility] Comment on above: Order Comment: Specimen Type : URINE SPECIMENOrdering Facility: [facility] Address: [address] [place] [address] Performed By: #### [id number] # ###[facility] LABORATORYCLIA [id number] [address] [id number] [facility] [place] RBC LM.HPF (Urine sed) [#/Area] /[HPF] Abnormal 0-3 /HPF [facility] Comment on above: Order Comment: Specimen Type : URINE SPECIMENOrdering Facility: [facility] Address: [address] [place] [address] Performed By: #### [id number] # ###[facility]ORATORYCLIA [id number] [address] Specific gravity (U) [Rel 1.027 Normal 1.005-1.030 [facility] density] Comment on above: Order Comment: Specimen Type : URINE SPECIMENOrdering Facility: [facility] Address: [address] [address] Performed By: #### [id number] # ###[facility]ORATORYCLIA [id number] [address] Urobilinogen Ql (U) Normal Normal Negative [facility] Comment on above: Order Comment: Specimen Type : URINE SPECIMENOrdering Facility: [facility] Address: [address] [place] [address] Performed By: #### [id number] # ###[facility]ORATORYCLIA [id number] [facility], [address] WBC LM.HPF (Urine sed) [#/Area] /[HPF] Abnormal 0-5 /HPF [facility] Comment on above: Order Comment: Specimen Type : URINE SPECIMENOrdering Facility: [facility] Address: [address] [place] [address] Performed By: #### [id number] # ###[facility]ORATORYCLIA [id number] [address] Yeast.budding LM.HPF (Urine sed) Few Abnormal None See n [facility] [#/Area] Comment on above: Order Comment: Specimen Type : URINE SPECIMENOrdering Facility: [facility] Address: [address] [place] [address] Performed By: #### [id number] # ###[facility]ORATORYCLIA [id number] [address] OF [place] aPTT PPP on 02-19-2023 aPTT Coag (PPP) [Time] 37.2 s High 28.5-34.0 [facility] Comment on above: Order Comment: Specimen Type : BLOOD SPECIMENOrdering Facility: [facility] Address: [address] [place] [address] Performed By: #### 81483-9 # ###[facility]ORATORYCLIA [id number] [facility], [address] aPTT Coag (PPP) [Time] 33.7 s High 23.0-32.4 [facility] Comment on above: Order Comment: Specimen Type : BLOOD SPECIMENOrdering Facility: [facility] Address: [address] [address] Performed By: #### 93365-3 # ###[facility] LABORATORYCLIA [id number] [address] [place] aPTT Coag (PPP) [Time] 28.4 s Normal 23.0-32.4 [facility] Comment on above: Order Comment: Specimen Type : BLOOD SPECIMENOrdering Facility: [facility] Address: [address] [address] Performed By: #### 43027-0, 96381-6 ####[facility] LABORATORYCLIA [id number] [address] [place] Bacteria Wnd Cult on 02-18-2023 Bacteria identified Cx Nom (Wound) Abnormal [facility] Comment on above: Performed By: #### 6462-6 ## ##[facility] LABCLIA [id number] [address] [place] CBC W Auto Differential panel (Bld) on 02-18-2023 Basophils (Bld) [#/Vol] 0.10 10*3/uL <0.11 k/uL [facility] Basophils/100 WBC (Bld) 0.8 % [facility] Differential cell count Auto [facility] method Nom (Bld) Eosinophils (Bld) [#/Vol] 0.18 10*3/uL <0.46 k/uL [facility] Eosinophils/100 WBC (Bld) 1.5 % [facility] Erythrocyte distribution 16.3 % High 11.5 - 15.0 % [facility] width (RBC) [Ratio] Hematocrit (Bld) [Volume 32.7 % Low 36.0 - 46.0 % [facility] fraction] Hemoglobin (Bld) 9.4 g/dL Low 11.5 - 15.5 g/dL [facility] [Mass/Vol] Immature granulocytes 0.11 10*3/uL High <0.10 k/uL [facility] (Bld) [#/Vol] Immature granulocytes/100 0.9 % [facility] WBC (Bld) Lymphocytes (Bld) [#/Vol] 2.20 10*3/uL 1.00 - 4.00 k/u L [facility] Lymphocytes/100 WBC (Bld) 18.5 % [facility] MCH (RBC) [Entitic mass] 26.5 pg 26.0 - 34.0 pg [facility] MCHC (RBC) [Mass/Vol] 28.7 g/dL Low 30.5 - 36.0 g/dL [facility] MCV (RBC) [Entitic vol] 92.1 fL 80.0 - 100.0 fL [facility] Monocytes (Bld) [#/Vol] 0.52 10*3/uL <0.87 k/uL [facility] Monocytes/100 WBC (Bld) 4.4 % [facility] Neutrophils (Bld) [#/Vol] 8.78 10*3/uL High 1.45 - 7.50 k/u L [facility] Neutrophils/100 WBC (Bld) 73.9 % [facility] Nucleated RBC (Bld) <0.01 k/uL [facility] [#/Vol] Nucleated RBC/100 WBC 0.0 /100 WBC [facility] (Bld) [Ratio] Platelet mean volume 10.7 fL 9.0 - 12.7 fL [facility] (Bld) [Entitic vol] Platelets (Bld) [#/Vol] 302 10*3/uL 150 - 400 k/uL [facility] RBC (Bld) [#/Vol] 3.55 10*6/uL Low 3.90 - 5.20 m/uL [facility] WBC (Bld) [#/Vol] 11.89 10*3/uL High 3.70 - 11.00 k/uL [facility] Basophils (Bld) [#/Vol] 0.10 10*3/uL Normal <0.11 [facility] Comment on above: Order Comment: Specimen Type : BLOOD SPECIMENOrdering Facility: [facility] Address: [address] [place] [address] [place] [address] Performed By: #### 89818-3 # ###[facility] LABCLIA [id number] [place] [address] [place] Basophils/100 WBC (Bld) 0.8 % Normal [facility] Comment on above: Order Comment: Specimen Type : BLOOD SPECIMENOrdering Facility: [facility] Address: [address] [place] [address] Performed By: #### 19617-2 # ###[facility] LABCLIA [id number] [place] [address] [place] Differential cell count method Nom (Bld) Auto Normal [facility] Comment on above: Order Comment: Specimen Type : BLOOD SPECIMENOrdering Facility: [facility] Address: [address] [place] [address] Performed By: #### 48298-0 # ###[facility] LABCLIA [id number] [place] [address] [place] Eosinophils (Bld) [#/Vol] 0.18 10*3/uL Normal <0.46 [facility] Comment on above: Order Comment: Specimen Type : BLOOD SPECIMENOrdering Facility: [facility] Address: [address] [place] [address] Performed By: #### 13807-9 # ###[facility] LABIA [id number] [place] [address] [place] Eosinophils/100 WBC (Bld) 1.5 % Normal [facility] Comment on above: Order Comment: Specimen Type : BLOOD SPECIMENOrdering Facility: [facility] Address: [address] [place] [address] Performed By: #### 97404-1 # ###[facility] LABIA [id number] [place] [address] [place] Erythrocyte distribution width (RBC) 16.3 % High 11.5 -15.0 [facility] [Ratio] Comment on above: Order Comment: Specimen Type : BLOOD SPECIMENOrdering Facility: [facility] Address: [address] Performed By: #### 75451-4 # ###[facility] LABIA [id number] [place] [address] [place] Hematocrit (Bld) [Volume fraction] 32.7 % Low 36.0-4 6.0 [facility] Comment on above: Order Comment: Specimen Type : BLOOD SPECIMENOrdering Facility: [facility] Address: [address] Performed By: #### 06292-5 # ###[facility] LABIA [id number] [place] [address] [place] Hemoglobin (Bld) [Mass/Vol] 9.4 g/dL Low 11.5-15.5 [facility] Comment on above: Order Comment: Specimen Type : BLOOD SPECIMENOrdering Facility: [facility] Address: [address] [place], [place] [address] Performed By: #### 68826-2 # ###[facility] LABIA [id number] [place] [address] [place] Immature granulocytes (Bld) 0.11 10*3/uL High <0.10 [facility] [#/Vol] Comment on above: Order Comment: Specimen Type : BLOOD SPECIMENOrdering Facility: [facility] Address: [address] [place], [place] [address] Performed By: #### 20038-8 # ###[facility] LABCLIA [id number] [place] [address] [place] Immature granulocytes/100 WBC (Bld) 0.9 % Normal [facility] Comment on above: Order Comment: Specimen Type : BLOOD SPECIMENOrdering Facility: [facility] Address: [address] [place], [place] [address] Performed By: #### 82155-6 # ###[facility] LABCLIA [id number] [place] [address] [place] Lymphocytes (Bld) [#/Vol] 2.20 10*3/uL Normal 1.00-4.00 [facility] Comment on above: Order Comment: Specimen Type : BLOOD SPECIMENOrdering Facility: [facility] Address: [address] [place] [address] Performed By: #### 54013-1 # ###[facility] LABCLIA [id number] [place] [address] [place] Lymphocytes/100 WBC (Bld) 18.5 % Normal [facility] Comment on above: Order Comment: Specimen Type : BLOOD SPECIMENOrdering Facility: [facility] Address: [address] [place] [address] Performed By: #### 80451-7 # ###[facility] LABCLIA [id number] [place] [address] [place] MCH (RBC) [Entitic mass] 26.5 pg Normal 26.0-34.0 [facility] Comment on above: Order Comment: Specimen Type : BLOOD SPECIMENOrdering Facility: [facility] Address: [address] [place], [place] [address] Performed By: #### 65158-5 # ###[facility] LABCLIA [id number] [place] [address] [place] MCHC (RBC) [Mass/Vol] 28.7 g/dL Low 30.5-36.0 [facility] Comment on above: Order Comment: Specimen Type : BLOOD SPECIMENOrdering Facility: [facility] Address: [address] [place], [place] [address] Performed By: #### 74249-5 # ###[facility] LABCLIA [id number] [place] [address] [place] MCV (RBC) [Entitic vol] 92.1 fL Normal 80.0-100.0 [facility] Comment on above: Order Comment: Specimen Type : BLOOD SPECIMENOrdering Facility: [facility] Address: [address] Performed By: #### 01145-6 # ###[facility] LABCLIA [id number] [place] [address] [place] Monocytes (Bld) [#/Vol] 0.52 10*3/uL Normal <0.87 [facility] Comment on above: Order Comment: Specimen Type : BLOOD SPECIMENOrdering Facility: [facility] Address: [address] Performed By: #### 56272-2 # ###[facility] LABCLIA [id number] [place] [address] [place] Monocytes/100 WBC (Bld) 4.4 % Normal [facility] Comment on above: Order Comment: Specimen Type : BLOOD SPECIMENOrdering Facility: [facility] Address: [address] Performed By: #### 63448-4 # ###[facility] LABCLIA [id number] [place] [address] [place] Neutrophils (Bld) [#/Vol] 8.78 10*3/uL High 1.45-7.50 [facility] Comment on above: Order Comment: Specimen Type : BLOOD SPECIMENOrdering Facility: [facility] Address: [address] [place] [address] Performed By: #### 69486-8 # ###[facility] LABCLIA [id number] [place] [address] [place] Neutrophils/100 WBC (Bld) 73.9 % Normal [facility] Comment on above: Order Comment: Specimen Type : BLOOD SPECIMENOrdering Facility: [facility] Address: [address] Performed By: #### 57834-5 # ###[facility] LABCLIA [id number] [place] [address] [place] Nucleated RBC (Bld) [#/Vol] 10*3/uL Normal <0.01 [facility] Comment on above: Order Comment: Specimen Type : BLOOD SPECIMENOrdering Facility: [facility] Address: [address] [place] [address] Performed By: #### 87550-7 # ###[facility] LABCLIA [id number] [place] [address] [place] Nucleated RBC/100 WBC (Bld) [Ratio] 0.0 /100 WBC Normal [facility] Comment on above: Order Comment: Specimen Type : BLOOD SPECIMENOrdering Facility: [facility] Address: [address] [place] [address] Performed By: #### 40111-5 # ###[facility] LABCLIA [id number] [place] [address] [place] Platelet mean volume (Bld) 10.7 fL Normal 9.0-12.7 C [facility] [Entitic vol] Comment on above: Order Comment: Specimen Type : BLOOD SPECIMENOrdering Facility: [facility] Address: [address] [place], [place] [address] Performed By: #### 76141-5 # ###[facility] LABCLIA [id number] [place] [address] [place] Platelets (Bld) [#/Vol] 302 10*3/uL Normal 150-400 [facility] Comment on above: Order Comment: Specimen Type : BLOOD SPECIMENOrdering Facility: [facility] Address: [address] [place], [place] [address] Performed By: #### 94978-8 # ###[facility] LABCLIA [id number] [place] [address] [place] RBC (Bld) [#/Vol] 3.55 10*6/uL Low 3.90-5.20 [facility] Comment on above: Order Comment: Specimen Type : BLOOD SPECIMENOrdering Facility: [facility] Address: [address] Performed By: #### 59531-4 # ###[facility] LABCLIA [id number] [place] [address] [place] WBC (Bld) [#/Vol] 11.89 10*3/uL High 3.70-11.00 [facility] Comment on above: Order Comment: Specimen Type : BLOOD SPECIMENOrdering Facility: [facility] Address: [address] Performed By: #### 69825-4 # ###[facility] LABIA [id number] [place] [address] [place] CNOV on 02-18-2023 CNOV Normal [facility] metabolic 2000 panel on 02-18-2023 Albumin [Mass/Vol] 3.4 g/dL Low 3.9-4.9 [facility] Comment on above: Order Comment: Specimen Type : BLOOD SPECIMENOrdering Facility: [facility] Address: [address] Performed By: #### LIPNF, 323-8 ####[facility] LABCLIA [id number] [place] [address] [place] ALP [Catalytic activity/Vol] 64 U/L Normal 34-123 [facility] Comment on above: Order Comment: Specimen Type : BLOOD SPECIMENOrdering Facility: [facility] Address: [address] Performed By: #### LIPNF, 323-8 ####[facility] LABCLIA [id number] [place] [address] [place] ALT [Catalytic activity/Vol] 12 U/L Normal 7-38 [facility] Comment on above: Order Comment: Specimen Type : BLOOD SPECIMENOrdering Facility: [facility] Address: [address] [place], [place] [address] Performed By: #### LIPANN-MARIE, 8 ####[facility] LABCLIA [id number] [place] [address] [place] Anion gap [Moles/Vol] 7 mmol/L Low 9-18 [facility] Comment on above: Order Comment: Specimen Type : BLOOD SPECIMENOrdering Facility: [facility] Address: [address] [place], [place] Performed By: #### LIPANN-MARIE, 8 ####[facility] LABCLIA [id number] [place] [address] [place] AST [Catalytic activity/Vol] 12 U/L Low 13-35 [facility] Comment on above: Order Comment: Specimen Type : BLOOD SPECIMENOrdering Facility: [facility] Address: [address] [place], [place] Performed By: #### LIAM, 8 ####[facility] LABCLIA [id number] [place] [address] [place] Bilirubin [Mass/Vol] 0.2 mg/dL Normal 0.2-1.3 [facility] Comment on above: Order Comment: Specimen Type : BLOOD SPECIMENOrdering Facility: [facility] Address: [address] [place], [place] Performed By: #### LIPANN-MARIE, 8 ####[facility] LABCLIA [id number] [place] [address] [place] Calcium [Mass/Vol] 8.8 mg/dL Normal 8.5-10.2 [facility] Comment on above: Order Comment: Specimen Type : BLOOD SPECIMENOrdering Facility: [facility] Address: [address] [place], [place] Performed By: #### LIPANN-MARIE, 8 ####[facility] LABCLIA [id number] [place] [address] [place] Chloride [Moles/Vol] 100 mmol/L Normal 97-105 [facility] Comment on above: Order Comment: Specimen Type : BLOOD SPECIMENOrdering Facility: [facility] Address: [address] [place] [address] Performed By: #### LIAM, 8 ####[facility] LABCLIA [id number] [place] [address] [place] CO2 [Moles/Vol] 29 mmol/L Normal 22-30 [facility] Comment on above: Order Comment: Specimen Type : BLOOD SPECIMENOrdering Facility: [facility] Address: [address] Performed By: #### LIAM, ####[facility] LABCLIA [id number] [address] [place] Creatinine [Mass/Vol] 0.76 mg/dL Normal 0.58-0.96 [facility] Comment on above: Order Comment: Specimen Type : BLOOD SPECIMENOrdering Facility: [facility] Address: [address] Performed By: #### LIAM, ####[facility] LABCLIA [id number] [address] [place] ESTIMATED GLOMERULAR 99 mL/min/1.73m??? Normal >=60 C [facility] FILTRATION RATE Comment on above: Order Comment: Specimen Type : BLOOD SPECIMENOrdering Facility: [facility] Address: [address] Result Comment: Estimated Gl omerular Filtration [...] actual GFR. Performed By: #### LIAM, 8 ####[facility] LABCLIA [id number] [place] [address] [place] Glucose [Mass/Vol] 153 mg/dL High 74-99 [facility] Comment on above: Order Comment: Specimen Type : BLOOD SPECIMENOrdering Facility: [facility] Address: [address] [place] [address] Result Comment: The English Diabetes Association (ADA) provides guidance for cutoff [...] of Medical Care in Diabetes 2016, [facility] Diabetes Association. Diabetes Care. 2016.39(Suppl 1). Performed By: #### LIAM, 8 ####[facility] LABIA [id number] [place] [address] [place] Potassium [Moles/Vol] 5.0 mmol/L Normal 3.7-5.1 [facility] Comment on above: Order Comment: Specimen Type : BLOOD SPECIMENOrdering Facility: [facility] Address: [address] Performed By: #### LIAM, 8 ####[facility] [id number] [place] [address] [place] Protein [Mass/Vol] 6.7 g/dL Normal 6.3-8.0 [facility] Comment on above: Order Comment: Specimen Type : BLOOD SPECIMENOrdering Facility: [facility] Address: [address] Performed By: #### LIPNF, 323-8 ####[facility] LABCLIA [id number] [place] [address] [place] Sodium [Moles/Vol] 136 mmol/L Normal 136-144 [facility] Comment on above: Order Comment: Specimen Type : BLOOD SPECIMENOrdering Facility: [facility] Address: [address] Performed By: #### LIPANN-MARIE, 8 ####[facility] LABCLIA [id number] [place] [address] [place] Urea nitrogen [Mass/Vol] 16 mg/dL Normal 7-21 [facility] Comment on above: Order Comment: Specimen Type : BLOOD SPECIMENOrdering Facility: [facility] Address: [address] [place], [place] [address] Performed By: #### LIPANN-MARIE, 8 ####[facility] LABIA [id number] [place] [address] [place] HbA1c (Bld) on 02-18-2023 Average glucose Estimated 194 mg/dL [facility] from glycated hemoglobin (Bld) [Mass/Vol] HbA1c (Bld) [Mass fraction] 8.4 % High 4.3 - 5.6 % [facility] Average glucose Estimated 194 mg/dL Normal [facility] from glycated hemoglobin (Bld) [Mass/Vol] Comment on above: Order Comment: Specimen Type : BLOOD SPECIMENOrdering Facility: [facility] Address: [address] Result Comment: eAG: (Estima mitul average glucose) is a calculated value from HgbA1c and is rep resentative of the average blood glucose level in the last 2- 3 month period. Performed By: #### 11946-0 # ###[facility] LABCLIA [id number] [place] [address] [place] HbA1c (Bld) [Mass fraction] 8.4 % High 4.3-5.6 [facility] Comment on above: Order Comment: Specimen Type : BLOOD SPECIMENOrdering Facility: [facility] Address: [address] [place] [address] Result Comment: English Richard betes Association guidelines indicate that patients with HgbA1c in the range 5.7-6.4% are at increased risk for development of diab etes, and intervention by lifestyle modification may be benefici al. HgbA1c greater or equal to 6.5% is considered diagnostic of richard betes. Performed By: #### 25541-1 # ###[facility] LABCLIA [id number] [place] [address] [place] LIPID PANEL, NONFASTING on 02-18-2023 Cholesterol [Mass/Vol] 148 mg/dL Normal <200 [facility] Comment on above: Order Comment: Specimen Type : BLOOD SPECIMENOrdering Facility: [facility] Address: [address] [place] [address] Result Comment: <200 mg/dL, Desirable 200-239 mg/dL, Borderline high>239 mg/dL, High Performed By: #### LIPNF, -8 ####[facility] LABCLIA [id number] [address] [place] HDL CHOLESTEROL, NF 37 mg/dL Low >39 [facility] Comment on above: Order Comment: Specimen Type : BLOOD SPECIMENOrdering Facility: [facility] Address: [address] [place] [address] Result Comment: 40-59 mg/dL, Acceptable>59 mg/dL, High: Negative risk factor for coronary hea rt disease<40 mg/dL, Low: Positive risk factor for coronary heart di sease Performed By: #### LIPNF, 323-8 ####[facility] LABCLIA [id number] [address] [place] LDL CHOLESTEROL, NF 87 mg/dL Normal <100 [facility] Comment on above: Order Comment: Specimen Type : BLOOD SPECIMENOrdering Facility: [facility] Address: [address] [place] [address] Result Comment: <100 mg/dL, Optimal 100-129 mg/dL, Near optimal/above optimal 130-15 9 mg/dL, Borderline high 160-189 mg/dL, High>189 mg/dL, Very highSec ondary prevention optimal LDL Cholesterol levels are recom mended to be < 70 mg/dL Performed By: #### LIPANN-MARIE, -8 ####[facility] LABCLIA [id number] [address] STATES OF [facility] LDL/HDL RATIO, NF 2.35 mg/dL Normal <2.54 [facility] Comment on above: Order Comment: Specimen Type : BLOOD SPECIMENOrdering Facility: [facility] Address: [address] Result Comment: Reference:1. National Cholesterol Education Program ATP III Guideline At-A-Glanc e Quick Desk Reference: National Heart, Lung, and Blood Celina. N [facility] Institutes of Health. 2001: NIH Publication No. 01-3305.2. A n International Atherosclerosis Society position paper: global recom mendations for the management of dyslipidemia: executive summ shaina, Atherosclerosis. 2014: 232(2):410-413. Performed By: #### LIAM, ####[facility] LABCLIA [id number] [address] [place] NON HDL CHOL, NF 111 mg/dL Normal <130 [facility] [place] Comment on above: Order Comment: Specimen Type : BLOOD SPECIMENOrdering Facility: [facility] Address: [place] [address] Result Comment: <130 mg/dL, Optimal 130-159 mg/dL, Near optimal/above optimal 160-18 9 mg/dL, Borderline high 190-219 mg/dL, High>219 mg/dL, Very highSec ondary prevention optimal non HDL Cholesterol levels are recom mended to be <100 mg/dL Performed By: #### LIPANN-MARIE, 323-8 ####[facility] LABCLIA [id number] [address] [place] [address] [place] T CHOL/HDL RATIO NF 4.00 mg/dL Normal <5.10 [facility] Comment on above: Order Comment: Specimen Type : BLOOD SPECIMENOrdering Facility: [facility] Address: [address] [place] [id number] Performed By: #### LIPNF, 323-8 ####[facility] LABCLIA [id number] [place] [address] [place] TRIGLYCERIDES, NF 122 mg/dL Normal <150 [facility] Comment on above: Order Comment: Specimen Type : BLOOD SPECIMENOrdering Facility: [facility] Address: [address] [place], [place] [address] Result Comment: <150 mg/dL, Normal 150-199 mg/dL, Borderline high 200-499 mg/dL, High>499 mg/d L, Very high Performed By: #### LIPNF, 323-8 ####[facility] LABCLIA [id number] [place] [address] [place] VLDL CHOLESTEROL, NF 24 mg/dL Normal <30 [facility] Comment on above: Order Comment: Specimen Type : BLOOD SPECIMENOrdering Facility: [facility] Address: [address] [place], [place] [address] Performed By: #### LIPNF, 323-8 ####[facility] LABCLIA [id number] [place] [address] [place] CNPN on 02-04-2023 CNPN [address] [facility] CNPTOUTREACH on 02-03-2023 CNPTOUTREACH Normal [facility] CNPN on 01-30-2023 CNPN Normal [facility] CNPTOUTREACH on 01-28-2023 CNPTOUTREACH Normal [facility] CNPN on 01-21-2023 CNPN Normal [facility] CNPN on 01-20-2023 CNPN Normal [facility] CNPTOUTREACH on 01-17-2023 CNPTOUTREACH Normal [facility] metabolic 2000 panel on 3 Anion gap [Moles/Vol] 12 mmol/L Normal 9-18 [facility] Comment on above: Order Comment: Specimen Type : BLOOD SPECIMENOrdering Facility: [facility] Address: [address] [place] [address] Performed By: #### 68648-6 # ###[facility]ORATORYCLIA [id number] [facility] [place], [place] [address] [place] Calcium [Mass/Vol] 8.6 mg/dL Normal 8.5-10.2 [facility] Comment on above: Order Comment: Specimen Type : BLOOD SPECIMENOrdering Facility: [facility] Address: [address] [place] [address] Performed By: #### 79009-5 # ###[facility] LABORATORYCLIA [id number] [facility] [place] [address] [place] Chloride [Moles/Vol] 98 mmol/L Normal 97-105 [facility] Comment on above: Order Comment: Specimen Type : BLOOD SPECIMENOrdering Facility: [facility] Address: [address] [place] [address] Performed By: #### 91756-0 # ###[facility]ORATORYCLIA [id number] [place] [address] [place] CO2 [Moles/Vol] 27 mmol/L Normal 22-30 [facility] Comment on above: Order Comment: Specimen Type : BLOOD SPECIMENOrdering Facility: [facility] Address: [address] [place] [address] Performed By: #### 19476-4 # ###[facility]ORATORYCLIA [id number] [facility] [place] Creatinine [Mass/Vol] 0.95 mg/dL Normal 0.58-0.96 [facility] Comment on above: Order Comment: Specimen Type : BLOOD SPECIMENOrdering Facility: [facility] Address: [address] [place] [address] Performed By: #### 62684-7 # ###[facility] CENTERIA [id number] [address] OF [facility] ESTIMATED GLOMERULAR 75 mL/min/1.73m??? Normal >=60 A [facility] FILTRATION RATE Center Comment on above: Order Comment: Specimen Type : BLOOD SPECIMENOrdering Facility: [facility] Address: [address] [place] [address] Result Comment: Estimated Gl omerular Filtration Rate [...] accurately reflect actual GFR. Performed By: #### 39444-7 # ###[facility] CENTERIA [id number] [address] OF [facility] Glucose [Mass/Vol] 212 mg/dL High 74-99 [facility] Comment on above: Order Comment: Specimen Type : BLOOD SPECIMENOrdering Facility: [facility] Address: [address] [place] [address] Result Comment: The English Diabetes Association (ADA) provides guidance for cutoff [...] Diabetes Care. 2016.39(Suppl 1). Performed By: #### 79467-0 # ###[facility] CENTERIA [id number] [address] [place] Potassium [Moles/Vol] 3.8 mmol/L Normal 3.7-5.1 [facility] Comment on above: Order Comment: Specimen Type : BLOOD SPECIMENOrdering Facility: [facility] Address: [address] [place] [address] Performed By: #### 77571-5 # ###[facility] LABORATORYCLIA [id number] [place] [id number] [place] Sodium [Moles/Vol] 137 mmol/L Normal 136-144 [facility] Comment on above: Order Comment: Specimen Type : BLOOD SPECIMENOrdering Facility: [facility] Address: [address] [place] [address] Performed By: #### 59702-0 # ###[facility] LABORATORYCLIA [id number] [address] [place] Urea nitrogen [Mass/Vol] 12 mg/dL Normal 7-21 [facility] Comment on above: Order Comment: Specimen Type : BLOOD SPECIMENOrdering Facility: [facility] Address: [address] [place] [address] Performed By: #### 38933-4 # ###[facility] LABORATORYCLIA [id number] [place] [id number] [place] CASE MANAGEM on 01-16-2023 CASE MANAGEM Normal [facility] CBC panel Auto (Bld) on 01-16-2023 Erythrocyte distribution width 16.8 % High 11.5-15.0 [facility] (RBC) [Ratio] Comment on above: Order Comment: Specimen Type : BLOOD SPECIMENOrdering Facility: [facility] Address: [address] [place] [address] Performed By: #### 65170-6 # ###[facility] LABORATORYCLIA [id number] [address] [place] Hematocrit (Bld) [Volume fraction] 33.3 % Low 36.0-4 6.0 [facility] Comment on above: Order Comment: Specimen Type : BLOOD SPECIMENOrdering Facility: [facility] Address: [address] [place] [address] Performed By: #### 77641-9 # ###[facility] LABORATORYCLIA [id number] [facility] OF [facility] Hemoglobin (Bld) [Mass/Vol] 9.7 g/dL Low 11.5-15.5 [facility] Comment on above: Order Comment: Specimen Type : BLOOD SPECIMENOrdering Facility: [facility] Address: [address] [place] [address] Performed By: #### 76612-7 # ###[facility] LABORATORYCLIA [id number] [address] OF [facility] MCH (RBC) [Entitic mass] 27.6 pg Normal 26.0-34.0 [facility] Comment on above: Order Comment: Specimen Type : BLOOD SPECIMENOrdering Facility: [facility] Address: [address] [place] [address] Performed By: #### 36940-5 # ###[facility] LABORATORYCLIA [id number] [address] MCHC (RBC) [Mass/Vol] 29.1 g/dL Low 30.5-36.0 [facility] Comment on above: Order Comment: Specimen Type : BLOOD SPECIMENOrdering Facility: [facility] Address: [address] [place] [address] Performed By: #### 06604-5 # ###[facility] LABORATORYCLIA [id number] [facility], [address] STATES OF [facility] MCV (RBC) [Entitic vol] 94.9 fL Normal 80.0-100.0 [facility] Comment on above: Order Comment: Specimen Type : BLOOD SPECIMENOrdering Facility: [facility] Address: [address] [place] [address] Performed By: #### 76779-9 # ###[facility] LABORATORYCLIA [id number] [place] [address] [place] Nucleated RBC (Bld) [#/Vol] 0.02 10*3/uL High <0.01 [facility] Comment on above: Order Comment: Specimen Type : BLOOD SPECIMENOrdering Facility: [facility] Address: [address] [place] [address] Performed By: #### 30444-1 # ###[facility] LABORATORYCLIA [id number] [facility] [place], [address] [place] Platelet mean volume (Bld) 9.4 fL Normal 9.0-12.7 [facility] [Entitic vol] Comment on above: Order Comment: Specimen Type : BLOOD SPECIMENOrdering Facility: [facility] Address: [address] [place] [address] Performed By: #### 17895-2 # ###[facility] LABORATORYCLIA [id number] [address] [place] Platelets (Bld) [#/Vol] 234 10*3/uL Normal 150-400 [facility] Comment on above: Order Comment: Specimen Type : BLOOD SPECIMENOrdering Facility: [facility] Address: [address] [place] [address] Performed By: #### 11515-2 # ###[facility] LABORATORYCLIA [id number] [facility], [address] [place] RBC (Bld) [#/Vol] 3.51 10*6/uL Low 3.90-5.20 [facility] Comment on above: Order Comment: Specimen Type : BLOOD SPECIMENOrdering Facility: [facility] Address: [address] [place] [address] Performed By: #### 91108-8 # ###[facility] LABORATORYCLIA [id number] [facility], [address] [place] WBC (Bld) [#/Vol] 11.70 10*3/uL High 3.70-11.00 [facility] Comment on above: Order Comment: Specimen Type : BLOOD SPECIMENOrdering Facility: [facility] Address: [address] [place], [place] [address] [address] Performed By: #### 36786-1 # ###[facility]ORATORYCLIA [id number] [facility] [place] [address] [place] CNDS on 01-16-2023 CNDS Normal [facility] NURSING PROG on 01-16-2023 NURSING PROG Normal [facility] Basic metabolic 2000 panel on 3 Anion gap [Moles/Vol] 10 mmol/L Normal 9-18 [facility] Comment on above: Order Comment: Specimen Type : BLOOD SPECIMENOrdering Facility: [facility] Address: [address] [place] [address] Performed By: #### 67096-6 # ###[facility]ORATORYCLIA [id number] [facility] [place] [address] [place] Calcium [Mass/Vol] 8.8 mg/dL Normal 8.5-10.2 [facility] Comment on above: Order Comment: Specimen Type : BLOOD SPECIMENOrdering Facility: [facility] Address: [address] [place] [address] Performed By: #### 84657-7 # ###[facility]ORATORYCLIA [id number] [facility] [place] [address] [place] Chloride [Moles/Vol] 99 mmol/L Normal 97-105 [facility] Comment on above: Order Comment: Specimen Type : BLOOD SPECIMENOrdering Facility: [facility] Address: [address] [place] [address] Performed By: #### 70631-2 # ###[facility]ORATORYCLIA [id number] [facility] [place] [address] [place] CO2 [Moles/Vol] 29 mmol/L Normal 22-30 [facility] Comment on above: Order Comment: Specimen Type : BLOOD SPECIMENOrdering Facility: [facility] Address: [address] [place] [address] Performed By: #### 15907-7 # ###[facility]ORATORYCLIA [id number] [place] [id number] [place] [facility] Creatinine [Mass/Vol] 0.85 mg/dL Normal 0.58-0.96 [facility] Comment on above: Order Comment: Specimen Type : BLOOD SPECIMENOrdering Facility: [facility] Address: [address] [place] [address] Performed By: #### 53553-4 # ###[facility] LABORATORYIA [id number] [place] [id number] [facility] ESTIMATED GLOMERULAR 86 mL/min/1.73m??? Normal >=[address] [facility] FILTRATION RATE Center Comment on above: Order Comment: Specimen Type : BLOOD SPECIMENOrdering Facility: [facility] Address: [address] [place] [address] Result Comment: Estimated Gl omerular Filtration Rate [...] accurately reflect actual GFR. Performed By: #### 20013-5 # ###[facility] LABORATORYIA [id number] [place] [id number] [place] Glucose [Mass/Vol] 184 mg/dL High 74-99 [facility] Comment on above: Order Comment: Specimen Type : BLOOD SPECIMENOrdering Facility: [facility] Address: [address] [place] [address] Result Comment: The English Diabetes Association (ADA) provides guidance for cutoff [...] Standards of Medical Care in Diabetes 2016, [facility] Diabetes Association. Diabetes Care. 2016.39(Suppl 1). Performed By: #### 99292-6 # ###[facility] LABORATORYCLIA [id number] [address] [place] Potassium [Moles/Vol] 3.7 mmol/L Normal 3.7-5.1 [facility] Comment on above: Order Comment: Specimen Type : BLOOD SPECIMENOrdering Facility: [facility] Address: [address] [place] [address] Performed By: #### 48736-1 # ###[facility] CENTERIA [id number] [address] STATES OF [facility] Sodium [Moles/Vol] 138 mmol/L Normal 136-144 [facility] Comment on above: Order Comment: Specimen Type : BLOOD SPECIMENOrdering Facility: [facility] Address: [address] [place] [address] Performed By: #### 78079-5 # ###[facility] CENTERIA [id number] [address] [place] Urea nitrogen [Mass/Vol] 8 mg/dL Normal 7-21 [facility] Comment on above: Order Comment: Specimen Type : BLOOD SPECIMENOrdering Facility: [facility] Address: [address] [place] [address] Performed By: #### 52521-3 # ###[facility] HOSPITALCLIA [id number] [address] [place] C trach+GC DNA Ur Ql SURESH+probe on 01-15 C. trachomatis+N. GC AMPLIFICATION: Normal [facility] gonorrhoeae DNA SURESH+probe Ql Negative for Neisseria go norrhoeae by amplification [facility] (U) CHLAMYDIA AMPLIFICATION: Negative for Chlamydia trachomatis by amplification Comment on above: Performed By: #### 19507-2 # ###[facility] LABORATORYCLIA [id number] [address] OF [facility] CASE MGT INIT ASSES on 01-15-2023 CASE MGT INIT ASSES Normal [facility] CBC panel Auto (Bld) on 01-15-2023 Erythrocyte distribution width 16.7 % High 11.5-15.0 [facility] (RBC) [Ratio] Comment on above: Order Comment: Specimen Type : BLOOD SPECIMENOrdering Facility: [facility] Address: [address] [place] [address] Performed By: #### 13466-3 # ###[facility] LABORATORYCLIA [id number] [address] Hematocrit (Bld) [Volume fraction] 35.8 % Low 36.0-4 6.0 [facility] Comment on above: Order Comment: Specimen Type : BLOOD SPECIMENOrdering Facility: [facility] Address: [address] [place] [address] Performed By: #### 04702-8 # ###[facility] LABORATORYCLIA [id number] [address] OF [facility] Hemoglobin (Bld) [Mass/Vol] 10.3 g/dL Low 11.5-15.5 [facility] Comment on above: Order Comment: Specimen Type : BLOOD SPECIMENOrdering Facility: [facility] Address: [address] [place] [address] Performed By: #### 99227-2 # ###[facility] LABORATORYCLIA [id number] [address] OF [place] MCH (RBC) [Entitic mass] 27.4 pg Normal 26.0-34.0 [facility] Comment on above: Order Comment: Specimen Type : BLOOD SPECIMENOrdering Facility: [facility] Address: [address] [place] [address] Performed By: #### 27987-3 # ###[facility]ORATORYCLIA [id number] [address] MCHC (RBC) [Mass/Vol] 28.8 g/dL Low 30.5-36.0 [facility] Comment on above: Order Comment: Specimen Type : BLOOD SPECIMENOrdering Facility: [facility] Address: [address] [address] Performed By: #### 28304-7 # ###[facility] LABORATORYCLIA [id number] [facility] [place], [address] [place] OF [facility] MCV (RBC) [Entitic vol] 95.2 fL Normal 80.0-100.0 [facility] Comment on above: Order Comment: Specimen Type : BLOOD SPECIMENOrdering Facility: [facility] Address: [address] [address] Performed By: #### 09361-0 # ###[facility] LABORATORYCLIA [id number] [facility], [address] [place] Nucleated RBC (Bld) [#/Vol] 0.02 10*3/uL High <0.01 [facility] Comment on above: Order Comment: Specimen Type : BLOOD SPECIMENOrdering Facility: [facility] Address: [address] [address] Performed By: #### 71310-9 # ###[facility] LABORATORYCLIA [id number] [facility], [address] [place] Platelet mean volume (Bld) 9.4 fL Normal 9.0-12.7 [facility] [Entitic vol] Comment on above: Order Comment: Specimen Type : BLOOD SPECIMENOrdering Facility: [facility] Address: [address] [address] Performed By: #### 42514-3 # ###[facility]ORATORYCLIA [id number] [facility], [address] Platelets (Bld) [#/Vol] 265 10*3/uL Normal 150-400 [facility] Comment on above: Order Comment: Specimen Type : BLOOD SPECIMENOrdering Facility: [facility] Address: [address] [address] Performed By: #### 28013-2 # ###[facility]ORATORYCLIA [id number] [place] [address] [place] RBC (Bld) [#/Vol] 3.76 10*6/uL Low 3.90-5.20 [facility] Comment on above: Order Comment: Specimen Type : BLOOD SPECIMENOrdering Facility: [facility] Address: [address] [address] Performed By: #### 48631-3 # ###[facility] CENTERIA [id number] [place] [address] [place] [facility] WBC (Bld) [#/Vol] 11.55 10*3/uL High 3.70-11.00 [facility] Comment on above: Order Comment: Specimen Type : BLOOD SPECIMENOrdering Facility: [facility] Address: [address] [place] [address] Performed By: #### 17918-6 # ###[facility] MEDICAL CENTERIA [id number] [address] OF [facility] CNPN on 01-15-2023 CNPN Normal [facility] CONSULT PROG on 01-15-2023 CONSULT PROG Normal [facility] HCG ( test) Ql (U) on 01-15-20 23 Specific gravity (U) [Rel 1.014 Normal 1.006-1.029 [facility] density] Comment on above: Order Comment: Specimen Type : URINE SPECIMENOrdering Facility: [facility] Address: [address] [place] [address] Result Comment: If specific gravity is <1.005 then results may be falsely negative. Serum HCG is recommended. Performed By: #### 2106-3 ## ##[facility] MEDICAL CENTERIA [id number] [address] HCG Preg Ur Ql on 01-15-2023 HCG ( test) Ql (U) Negative Normal Negative [facility] Comment on above: Order Comment: Specimen Type : URINE SPECIMENOrdering Facility: [facility] Address: [address] [id number] Result Comment: This test is intended to aid in the early detection of . Very dilute ur ine samples, as indicated by a low specific gravity, may not co ntain labor representative levels of hCG. This test detects [...] for . Performed By: #### 2106-3 ## ##[facility] HOSPITALCLIA [id number] [address] [place] T VAGINALIS AMPLIFICATION on 01-15-2023 T. vaginalis DNA Negative Normal Negative for Trichomonas [facility] SURESH+probe Ql (Unsp vaginalis by [facility] spec) Comment on above: Order Comment: Specimen Type : URINE SPECIMENOrdering Facility: [facility] Address: [address] [place], [place] [phone] Performed By: #### TRVAMP ## ##[facility] LABCLIA [id number] [facility] [place] [address] [place] ALLIED HEALTH on 01-14-2023 ALLIED HEALTH Normal [facility] ANES POSTPROC EVAL on 01-14-2023 ANES POSTPROC EVAL Normal [facility] ANES PRE-OP on 01-14-2023 ANES PRE-OP Normal [facility] BRIEF OP NOT on 01-14-2023 BRIEF OP NOT Normal [facility] Bacteria Wnd Cult on 01-14-2023 Bacteria identified Cx Nom (Wound) Abnormal [facility] Comment on above: Performed By: #### 6462-6 ## ##[facility] LABORATORYCLIA [id number] [place] [address] [place] Basic metabolic 2000 panel on 3 Anion gap [Moles/Vol] 10 mmol/L Normal 9-18 [facility] Comment on above: Order Comment: Specimen Type : BLOOD SPECIMENOrdering Facility: [facility] Address: [address] [place] [address] Performed By: #### 08510-6 # ###[facility]ORATORYCLIA [id number] [facility] [place] [address] [place] Calcium [Mass/Vol] 8.9 mg/dL Normal 8.5-10.2 [facility] Comment on above: Order Comment: Specimen Type : BLOOD SPECIMENOrdering Facility: [facility] Address: [address] [address] Performed By: #### 68826-9 # ###[facility]ORATORYCLIA [id number] [facility] [place] [address] [place] Chloride [Moles/Vol] 98 mmol/L Normal 97-105 [facility] Comment on above: Order Comment: Specimen Type : BLOOD SPECIMENOrdering Facility: [facility] Address: [address] [address] Performed By: #### 39089-7 # ###[facility]ORATORYCLIA [id number] [place] [address] [place] CO2 [Moles/Vol] 28 mmol/L Normal 22-30 [facility] Comment on above: Order Comment: Specimen Type : BLOOD SPECIMENOrdering Facility: [facility] Address: [address] [address] Performed By: #### 38171-1 # ###[facility]ORATORYCLIA [id number] [place] [address] [place] Creatinine [Mass/Vol] 0.82 mg/dL Normal 0.58-0.96 [facility] Comment on above: Order Comment: Specimen Type : BLOOD SPECIMENOrdering Facility: [facility] Address: [address] [address] Performed By: #### 49577-8 # ###[facility]ORATORYCLIA [id number] [place] [address] [place] ESTIMATED GLOMERULAR 90 mL/min/1.73m??? Normal >=[address] [facility] FILTRATION RATE Center Comment on above: Order Comment: Specimen Type : BLOOD SPECIMENOrdering Facility: [facility] Address: [address] [place] [address] Result Comment: Estimated Gl omerular Filtration Rate [...] accurately reflect actual GFR. Performed By: #### 29232-5 # ###[facility] MEDICAL CENTERIA [id number] [place] [address] [place] Glucose [Mass/Vol] 178 mg/dL High 74-99 [facility] Comment on above: Order Comment: Specimen Type : BLOOD SPECIMENOrdering Facility: [facility] Address: [address] [place] [address] Result Comment: The [place] Diabetes Association (ADA) provides guidance for cutoff [...] Diabetes Care. 2016.39(Suppl 1). Performed By: #### 17700-0 # ###[facility] LABORATORYIA [id number] [place] [address] [place] Potassium [Moles/Vol] 3.9 mmol/L Normal 3.7-5.1 [facility] Comment on above: Order Comment: Specimen Type : BLOOD SPECIMENOrdering Facility: [facility] Address: [address] [address] Performed By: #### 37056-8 # ###[facility]ORATORYCLIA [id number] [place] [address] [place] Sodium [Moles/Vol] 136 mmol/L Normal 136-144 [facility] Comment on above: Order Comment: Specimen Type : BLOOD SPECIMENOrdering Facility: [facility] Address: [address] [address] Performed By: #### 13310-4 # ###[facility] LABORATORYCLIA [id number] [place] [address] [place] Urea nitrogen [Mass/Vol] 11 mg/dL Normal 7-21 [facility] Comment on above: Order Comment: Specimen Type : BLOOD SPECIMENOrdering Facility: [facility] Address: [address] [address] Performed By: #### 97123-5 # ###[facility]ORATORYCLIA [id number] [place] [address] [place] CBC panel Auto (Bld) on 01-14-2023 Erythrocyte distribution width 16.5 % High 11.5-15.0 [facility] (RBC) [Ratio] Comment on above: Order Comment: Specimen Type : BLOOD SPECIMENOrdering Facility: [facility] Address: [address] [address] Performed By: #### 09665-1 # ###[facility]ORATORYCLIA [id number] [address] [place] Hematocrit (Bld) [Volume fraction] 33.1 % Low 36.0-4 6.0 [facility] Comment on above: Order Comment: Specimen Type : BLOOD SPECIMENOrdering Facility: [facility] Address: [address] [address] Performed By: #### 27717-7 # ###[facility]ORATORYCLIA [id number] [facility], [address] [place] Hemoglobin (Bld) [Mass/Vol] 10.0 g/dL Low 11.5-15.5 [facility] Comment on above: Order Comment: Specimen Type : BLOOD SPECIMENOrdering Facility: [facility] Address: [address] [place] [address] Performed By: #### 88427-5 # ###[facility]ORATORYCLIA [id number] [address] OF [facility] MCH (RBC) [Entitic mass] 28.0 pg Normal 26.0-34.0 [facility] Comment on above: Order Comment: Specimen Type : BLOOD SPECIMENOrdering Facility: [facility] Address: [address] [place] [address] Performed By: #### 55956-2 # ###[facility]ORATORYCLIA [id number] [address] MCHC (RBC) [Mass/Vol] 30.2 g/dL Low 30.5-36.0 [facility] Comment on above: Order Comment: Specimen Type : BLOOD SPECIMENOrdering Facility: [facility] Address: [address] [place] [address] Performed By: #### 52342-0 # ###[facility]ORATORYCLIA [id number] [address] [facility] MCV (RBC) [Entitic vol] 92.7 fL Normal 80.0-100.0 [facility] Comment on above: Order Comment: Specimen Type : BLOOD SPECIMENOrdering Facility: [facility] Address: [address] [place] [address] Performed By: #### 11331-7 # ###[facility]ORATORYCLIA [id number] [facility], [address] [facility] Nucleated RBC (Bld) [#/Vol] 10*3/uL Normal <0.01 [facility] Comment on above: Order Comment: Specimen Type : BLOOD SPECIMENOrdering Facility: [facility] Address: [address] [address] Performed By: #### 42267-0 # ###[facility]ORATORYCLIA [id number] [address] [place] Platelet mean volume (Bld) 9.5 fL Normal 9.0-12.7 [facility] [Entitic vol] Comment on above: Order Comment: Specimen Type : BLOOD SPECIMENOrdering Facility: [facility] Address: [address] [address] Performed By: #### 11416-1 # ###[facility]ORATORYCLIA [id number] [facility] [address] [place] Platelets (Bld) [#/Vol] 284 10*3/uL Normal 150-400 [facility] Comment on above: Order Comment: Specimen Type : BLOOD SPECIMENOrdering Facility: [facility] Address: [address] [address] Performed By: #### 84448-0 # ###[facility]ORATORYCLIA [id number] [facility], [address] [place] [address] [place] RBC (Bld) [#/Vol] 3.57 10*6/uL Low 3.90-5.20 [facility] Comment on above: Order Comment: Specimen Type : BLOOD SPECIMENOrdering Facility: [facility] Address: [address] Performed By: #### 29403-0 # ###[facility]ORATORYCLIA [id number] [facility], [address] [place] WBC (Bld) [#/Vol] 9.64 10*3/uL Normal 3.70-11.00 [facility] Comment on above: Order Comment: Specimen Type : BLOOD SPECIMENOrdering Facility: [facility] Address: [address] [address] Performed By: #### 05673-0 # ###[facility]ORATORYCLIA [id number] [facility] [place] [address] [place] CNPN on 01-14-2023 CNPN Normal [facility] CNPTOUTREACH on 01-14-2023 CNPTOUTREACH Normal [facility] CT ABD/PEL W IVCON on 01-14-2023 CT ABD/PEL W IVCON Normal [facility] HISTORY PHYSICAL on 01-14-2023 HISTORY PHYSICAL Normal [facility] OPERATIVE NO on 01-14-2023 OPERATIVE NO Normal [facility] SARS-CoV-2 RNA Resp Ql SURESH+probe on SARS-CoV-2 (COVID-19) RNA COVID 19 RESULT: Normal [facility] SURESH+probe Ql (Resp) Not detected Center The method used is RT-PCR or an equivalent NAAT method . Reference Range(the expected result in uninfected jone viduals): Not detected Comment on above: Performed By: #### 77483-2 # ###[facility]ORATORYCLIA [id number] [facility] [place] [address] [place] CNOV on 01-13-2023 CNOV Normal [facility] CNPN on 01-13-2023 CNPN Normal [facility] Basic metabolic 2000 panel on 3 Anion gap [Moles/Vol] 14 mmol/L Normal 9-18 [facility] Comment on above: Order Comment: Specimen Type : BLOOD SPECIMENOrdering Facility: [facility] Address: [address] [address] Performed By: #### 26643-3 # ###[facility]ORATORYCLIA [id number] [place] [address] [place] Calcium [Mass/Vol] 9.4 mg/dL Normal 8.5-10.2 [facility] Comment on above: Order Comment: Specimen Type : BLOOD SPECIMENOrdering Facility: [facility] Address: [address] [address] Performed By: #### 16188-5 # ###[facility]ORATORYCLIA [id number] [address] [place] Chloride [Moles/Vol] 101 mmol/L Normal 97-105 [facility] Comment on above: Order Comment: Specimen Type : BLOOD SPECIMENOrdering Facility: [facility] Address: [address] [place] [address] Performed By: #### 64970-7 # ###[facility] HOSPITALCLIA [id number] [address] [place] CO2 [Moles/Vol] 26 mmol/L Normal 22-30 [facility] Comment on above: Order Comment: Specimen Type : BLOOD SPECIMENOrdering Facility: [facility] Address: [address] [place] [address] Performed By: #### 64281-3 # ###[facility] CENTERIA [id number] [address] [place] Creatinine [Mass/Vol] 0.76 mg/dL Normal 0.58-0.96 [facility] Comment on above: Order Comment: Specimen Type : BLOOD SPECIMENOrdering Facility: [facility] Address: [address] [place] [address] Performed By: #### 54781-0 # ###[facility] MED[facility] CENTERIA [id number] [address] [place] ESTIMATED GLOMERULAR 99 mL/min/1.73m??? Normal >=[address] [facility] FILTRATION RATE Center Comment on above: Order Comment: Specimen Type : BLOOD SPECIMENOrdering Facility: [facility] Address: [address] [place] [address] Result Comment: Estimated Gl omerular Filtration Rate [...] accurately reflect actual GFR. Performed By: #### 01683-5 # ###[facility]ORATORYCLIA [id number] [place] [address] [place] Glucose [Mass/Vol] 221 mg/dL High 74-99 [facility] Comment on above: Order Comment: Specimen Type : BLOOD SPECIMENOrdering Facility: [facility] Address: [address] [address] Result Comment: The [place] Diabetes Association (ADA) provides guidance for cutoff [...] Standards of Medical Care in Diabetes 2016, [facility] Diabetes Association. Diabetes Care. 2016.39(Suppl 1). Performed By: #### 85543-3 # ###[facility]ORATORYCLIA [id number] [place] [address] [place] Potassium [Moles/Vol] 4.7 mmol/L Normal 3.7-5.1 [facility] Comment on above: Order Comment: Specimen Type : BLOOD SPECIMENOrdering Facility: [facility] Address: [address] [address] Performed By: #### 50672-3 # ###[facility]ORATORYCLIA [id number] [place] [id number] [place] Sodium [Moles/Vol] 141 mmol/L Normal 136-144 [facility] Comment on above: Order Comment: Specimen Type : BLOOD SPECIMENOrdering Facility: [facility] Address: [address] [place] [address] Performed By: #### 28111-0 # ###[facility]ORATORYCLIA [id number] [place] [address] [place] Urea nitrogen [Mass/Vol] 15 mg/dL Normal 7-21 [facility] Comment on above: Order Comment: Specimen Type : BLOOD SPECIMENOrdering Facility: [facility] Address: [address] [address] Performed By: #### 47433-0 # ###[facility]ORATORYCLIA [id number] [facility] [place], [place] [address] [place] CBC W Auto Differential panel (Bld) on 01-12-2023 Basophils (Bld) [#/Vol] 0.09 10*3/uL Normal <0.11 [facility] Comment on above: Order Comment: Specimen Type : BLOOD SPECIMENOrdering Facility: [facility] Address: [address] [address] Performed By: #### 08533-4 # ###[facility]ORATORYCLIA [id number] [facility] [place], [place] [address] [place] Basophils/100 WBC (Bld) 0.9 % Normal [facility] Comment on above: Order Comment: Specimen Type : BLOOD SPECIMENOrdering Facility: [facility] Address: [address] [address] Performed By: #### 75532-7 # ###[facility]ORATORYCLIA [id number] [facility], [address] [place] Differential cell count method Nom (Bld) Auto Normal [facility] Comment on above: Order Comment: Specimen Type : BLOOD SPECIMENOrdering Facility: [facility] Address: [address] [address] Performed By: #### 37300-2 # ###[facility]ORATORYCLIA [id number] [facility] [place], [place] [address] [place] Eosinophils (Bld) [#/Vol] 0.22 10*3/uL Normal <0.46 [facility] Comment on above: Order Comment: Specimen Type : BLOOD SPECIMENOrdering Facility: [facility] Address: [address] [address] Performed By: #### 58046-3 # ###[facility]ORATORYCLIA [id number] [facility] [place], [address] [place] Eosinophils/100 WBC (Bld) 2.1 % Normal [facility] Comment on above: Order Comment: Specimen Type : BLOOD SPECIMENOrdering Facility: [facility] Address: [address] [place] [address] Performed By: #### 19969-8 # ###[facility]ORATORYCLIA [id number] [facility] [place] Erythrocyte distribution width 16.6 % High 11.5-15.0 [facility] (RBC) [Ratio] Comment on above: Order Comment: Specimen Type : BLOOD SPECIMENOrdering Facility: [facility] Address: [address] [place] [address] Performed By: #### 92785-8 # ###[facility]ORATORYCLIA [id number] [address] [place] Hematocrit (Bld) [Volume 37.0 % Normal 36.0-46.0 [facility] fraction] Comment on above: Order Comment: Specimen Type : BLOOD SPECIMENOrdering Facility: [facility] Address: [address] [place] [address] Performed By: #### 66504-5 # ###[facility]ORATORYCLIA [id number] [facility], [address] [place] Hemoglobin (Bld) [Mass/Vol] 10.9 g/dL Low 11.5-15.5 [facility] Comment on above: Order Comment: Specimen Type : BLOOD SPECIMENOrdering Facility: [facility] Address: [address] [place] [address] Performed By: #### 82627-6 # ###[facility]ORATORYCLIA [id number] [address] Immature granulocytes (Bld) 0.12 10*3/uL High <0.10 [facility] [#/Vol] Comment on above: Order Comment: Specimen Type : BLOOD SPECIMENOrdering Facility: [facility] Address: [address] [address] Performed By: #### 04977-5 # ###[facility]ORATORYCLIA [id number] [facility] [address] Immature granulocytes/100 WBC (Bld) 1.1 % Normal [facility] Comment on above: Order Comment: Specimen Type : BLOOD SPECIMENOrdering Facility: [facility] Address: [address] [address] Performed By: #### 43295-7 # ###[facility]ORATORYCLIA [id number] [facility], [address] [place] Lymphocytes (Bld) [#/Vol] 2.50 10*3/uL Normal 1.00-4.00 [facility] Comment on above: Order Comment: Specimen Type : BLOOD SPECIMENOrdering Facility: [facility] Address: [address] [address] Performed By: #### 36664-7 # ###[facility]ORATORYCLIA [id number] [address] Lymphocytes/100 WBC (Bld) 23.8 % Normal [facility] Comment on above: Order Comment: Specimen Type : BLOOD SPECIMENOrdering Facility: [facility] [facility] Address: [address] [address] Performed By: #### 35269-3 # ###[facility]ORATORYCLIA [id number] [facility], [address] [place] MCH (RBC) [Entitic mass] 28.0 pg Normal 26.0-34.0 [facility] Comment on above: Order Comment: Specimen Type : BLOOD SPECIMENOrdering Facility: [facility] Address: [address] [address] Performed By: #### 87392-0 # ###[facility]ORATORYCLIA [id number] [facility], [address] [place] MCHC (RBC) [Mass/Vol] 29.5 g/dL Low 30.5-36.0 [facility] Comment on above: Order Comment: Specimen Type : BLOOD SPECIMENOrdering Facility: [facility] Address: [address] [address] Performed By: #### 37461-1 # ###[facility]ATORYCLIA [id number] [facility], [address] [place] MCV (RBC) [Entitic vol] 95.1 fL Normal 80.0-100.0 [facility] Comment on above: Order Comment: Specimen Type : BLOOD SPECIMENOrdering Facility: [facility] Address: [address] [address] Performed By: #### 39236-4 # ###[facility]ORATORYCLIA [id number] [facility], [address] [place] Monocytes (Bld) [#/Vol] 0.50 10*3/uL Normal <0.87 [facility] Comment on above: Order Comment: Specimen Type : BLOOD SPECIMENOrdering Facility: [facility] Address: [address] [address] Performed By: #### 36195-2 # ###[facility]ORATORYCLIA [id number] [facility], [address] Monocytes/100 WBC (Bld) 4.8 % Normal [facility] Comment on above: Order Comment: Specimen Type : BLOOD SPECIMENOrdering Facility: [facility] Address: [address] [address] Performed By: #### 99523-5 # ###[facility]ATORYCLIA [id number] [facility], [address] [place] Neutrophils (Bld) [#/Vol] 7.07 10*3/uL Normal 1.45-7.50 [facility] Comment on above: Order Comment: Specimen Type : BLOOD SPECIMENOrdering Facility: [facility] Address: [address] [address] Performed By: #### 24603-7 # ###[facility]ORATORYCLIA [id number] [facility] [address] [place] Neutrophils/100 WBC (Bld) 67.3 % Normal [facility] Comment on above: Order Comment: Specimen Type : BLOOD SPECIMENOrdering Facility: [facility] Address: [address] [address] Performed By: #### 67504-9 # ###[facility]ORATORYCLIA [id number] [address] [place] Nucleated RBC (Bld) [#/Vol] 0.02 10*3/uL High <0.01 [facility] Comment on above: Order Comment: Specimen Type : BLOOD SPECIMENOrdering Facility: [facility] Address: [address] [address] Performed By: #### 42642-6 # ###[facility]ORATORYCLIA [id number] [address] [place] Nucleated RBC/100 WBC (Bld) 0.2 /100 WBC Normal [facility] [Ratio] Comment on above: Order Comment: Specimen Type : BLOOD SPECIMENOrdering Facility: [facility] Address: [address] [address] Performed By: #### 46515-7 # ###[facility]ORATORYCLIA [id number] [address] Platelet mean volume (Bld) 9.5 fL Normal 9.0-12.7 A [facility] [Entitic vol] Comment on above: Order Comment: Specimen Type : BLOOD SPECIMENOrdering Facility: [facility] Address: [address] Performed By: #### 57013-4 # ###[facility]ORATORYCLIA [id number] [address] Platelets (Bld) [#/Vol] 337 10*3/uL Normal 150-400 [facility] Comment on above: Order Comment: Specimen Type : BLOOD SPECIMENOrdering Facility: [facility] Address: [address] [address] Performed By: #### 03904-1 # ###[facility]ORATORYCLIA [id number] [facility] [place] [address] [place] RBC (Bld) [#/Vol] 3.89 10*6/uL Low 3.90-5.20 [facility] Comment on above: Order Comment: Specimen Type : BLOOD SPECIMENOrdering Facility: [facility] Address: [address] [address] Performed By: #### 35674-6 # ###[facility] LABORATORYCLIA [id number] [facility] [place] [address] [place] WBC (Bld) [#/Vol] 10.50 10*3/uL Normal 3.70-11.00 [facility] Comment on above: Order Comment: Specimen Type : BLOOD SPECIMENOrdering Facility: [facility] Address: [address] [address] Performed By: #### 21782-1 # ###[facility]ORATORYCLIA [id number] [address] [place] ED Triage Note on 01-12-2023 ED Triage Note Normal [facility] CNPN on 01-06-2023 CNPN Normal [facility] CNCO on 01-03-2023 CNCO Letter Text Normal [facility] CNPN on 01-02-2023 CNPN Normal [facility] CNPTOUTREACH on 01-02-2023 CNPTOUTREACH Normal [facility] Basic metabolic 2000 panel on 3 Anion gap [Moles/Vol] 12 mmol/L Normal 9-18 [facility] Comment on above: Order Comment: Specimen Type : BLOOD SPECIMENOrdering Facility: [facility] Address: [address] [address] Performed By: #### 85341-3 # ###[facility]ORATORYCLIA [id number] [facility] [place] [address] [place] Calcium [Mass/Vol] 9.1 mg/dL Normal 8.5-10.2 [facility] Comment on above: Order Comment: Specimen Type : BLOOD SPECIMENOrdering Facility: [facility] Address: [address] [address] Performed By: #### 16867-1 # ###[facility]ORATORYCLIA [id number] [place] [address] [place] Chloride [Moles/Vol] 97 mmol/L Normal 97-105 [facility] Comment on above: Order Comment: Specimen Type : BLOOD SPECIMENOrdering Facility: [facility] Address: [address] [address] Performed By: #### 82778-4 # ###[facility]ORATORYCLIA [id number] [place] [address] [place] CO2 [Moles/Vol] 29 mmol/L Normal 22-30 [facility] Comment on above: Order Comment: Specimen Type : BLOOD SPECIMENOrdering Facility: [facility] Address: [address] [address] Performed By: #### 23149-3 # ###[facility]ORATORYCLIA [id number] [facility] [place] [address] [place] Creatinine [Mass/Vol] 0.90 mg/dL Normal 0.58-0.96 [facility] Comment on above: Order Comment: Specimen Type : BLOOD SPECIMENOrdering Facility: [facility] Address: [address] [place] [address] Performed By: #### 94745-6 # ###[facility]ORATORYCLIA [id number] [place] [address] [place] ESTIMATED GLOMERULAR 81 mL/min/1.73m??? Normal >=60 A [facility] Comment on above: Order Comment: Specimen Type : BLOOD SPECIMENOrdering Facility: [facility] Address: [address] [place] [address] Result Comment: Estimated Gl omerular Filtration Rate [...] accurately reflect actual GFR. Performed By: #### 97386-3 # ###[facility]ORATORYCLIA [id number] [place] [address] [place] Glucose [Mass/Vol] 151 mg/dL High 74-99 [facility] Comment on above: Order Comment: Specimen Type : BLOOD SPECIMENOrdering Facility: [facility] Address: [address] [place], [place] [id number] Result Comment: The [place] Diabetes Association (ADA) provides guidance for cutoff [...] Standards of Medical Care in Diabetes 2016, [facility] Diabetes Association. Diabetes Care. 2016.39(Suppl 1). Performed By: #### 12356-7 # ###[facility]ORATORYCLIA [id number] [place] [address] [place] Potassium [Moles/Vol] 4.2 mmol/L Normal 3.7-5.1 [facility] Comment on above: Order Comment: Specimen Type : BLOOD SPECIMENOrdering Facility: [facility] Address: [address] [place] [address] Performed By: #### 11349-0 # ###[facility] LABORATORYIA [id number] [address] [id number] [place] Sodium [Moles/Vol] 138 mmol/L Normal 136-144 [facility] Comment on above: Order Comment: Specimen Type : BLOOD SPECIMENOrdering Facility: [facility] Address: [address] [facility] [place] [address] Performed By: #### 24899-7 # ###[facility]ORATORYCLIA [id number] [place] [address] [place] Urea nitrogen [Mass/Vol] 21 mg/dL Normal 7-21 [facility] Comment on above: Order Comment: Specimen Type : BLOOD SPECIMENOrdering Facility: [facility] Address: [address] [address] Performed By: #### 98134-9 # ###[facility]ORATORYCLIA [id number] [place] [address] [facility] CASE MANAGEM on 01-01-2023 CASE MANAGEM Normal [facility] CBC panel Auto (Bld) on 01-01-2023 Erythrocyte distribution width 15.8 % High 11.5-15.0 [facility] (RBC) [Ratio] Comment on above: Order Comment: Specimen Type : BLOOD SPECIMENOrdering Facility: [facility] Address: [address] [address] Performed By: #### 66688-5 # ###[facility]ORATORYCLIA [id number] [address] [place] Hematocrit (Bld) [Volume fraction] 34.8 % Low 36.0-4 6.0 [facility] Comment on above: Order Comment: Specimen Type : BLOOD SPECIMENOrdering Facility: [facility] Address: [address] [address] Performed By: #### 07536-5 # ###[facility]ORATORYCLIA [id number] [place] [address] [place] Hemoglobin (Bld) [Mass/Vol] 10.2 g/dL Low 11.5-15.5 [facility] Comment on above: Order Comment: Specimen Type : BLOOD SPECIMENOrdering Facility: [facility] Address: [address] [address] Performed By: #### 37629-8 # ###[facility]ORATORYCLIA [id number] [facility] [place], [address] [place] MCH (RBC) [Entitic mass] 27.8 pg Normal 26.0-34.0 [facility] Comment on above: Order Comment: Specimen Type : BLOOD SPECIMENOrdering Facility: [facility] Address: [address] [place] [address] Performed By: #### 47639-9 # ###[facility]ORATORYCLIA [id number] [facility], [address] [place] MCHC (RBC) [Mass/Vol] 29.3 g/dL Low 30.5-36.0 [facility] Comment on above: Order Comment: Specimen Type : BLOOD SPECIMENOrdering Facility: [facility] Address: [address] [place] [address] Performed By: #### 02395-7 # ###[facility]ORATORYCLIA [id number] [address] MCV (RBC) [Entitic vol] 94.8 fL Normal 80.0-100.0 [facility] Comment on above: Order Comment: Specimen Type : BLOOD SPECIMENOrdering Facility: [facility] Address: [address] [place] [address] Performed By: #### 80228-7 # ###[facility]ORATORYCLIA [id number] [address] Nucleated RBC (Bld) [#/Vol] 0.02 10*3/uL High <0.01 [facility] Comment on above: Order Comment: Specimen Type : BLOOD SPECIMENOrdering Facility: [facility] Address: [address] [place] [address] Performed By: #### 44508-6 # ###[facility]ORATORYCLIA [id number] [facility], [address] [place] Platelet mean volume (Bld) 9.4 fL Normal 9.0-12.7 [facility] [Entitic vol] Comment on above: Order Comment: Specimen Type : BLOOD SPECIMENOrdering Facility: [facility] Address: [address] [address] Performed By: #### 74937-7 # ###[facility]ORATORYCLIA [id number] [place] [address] [facility] [place] Platelets (Bld) [#/Vol] 426 10*3/uL High 150-400 [facility] Comment on above: Order Comment: Specimen Type : BLOOD SPECIMENOrdering Facility: [facility] Address: [address] [address] Performed By: #### 26088-1 # ###[facility]ORATORYCLIA [id number] [place] [address] [place] RBC (Bld) [#/Vol] 3.67 10*6/uL Low 3.90-5.20 [facility] Comment on above: Order Comment: Specimen Type : BLOOD SPECIMENOrdering Facility: [facility] Address: [address] [address] Performed By: #### 22225-3 # ###[facility]ORATORYCLIA [id number] [facility] [id number] [place] [address] [place] WBC (Bld) [#/Vol] 13.51 10*3/uL High 3.70-11.00 [facility] Comment on above: Order Comment: Specimen Type : BLOOD SPECIMENOrdering Facility: [facility] Address: [address] [address] Performed By: #### 84803-4 # ###[facility]ORATORYCLIA [id number] [place] [address] [facility] [place] CNDS on 01-01-2023 CNDS Normal [facility] CONSULT PROG on 01-01-2023 CONSULT PROG Normal [facility] THERAPY NT on 01-01-2023 THERAPY NT Normal [facility] THERAPY NT Normal [facility] ALLIED HEALTH on 12-31-2022 ALLIED HEALTH Normal [facility] ALLIED HEALTH Normal [facility] Basic metabolic 2000 panel on 3 Anion gap [Moles/Vol] 14 mmol/L Normal 9-18 [facility] Comment on above: Order Comment: Specimen Type : BLOOD SPECIMENOrdering Facility: [facility] Address: [address] [place] [address] Performed By: #### 43305-8, 88093-8, 2776- ####[facility]ORATORYCLIA [id number] [place] [address] [place] Calcium [Mass/Vol] 9.4 mg/dL Normal 8.5-10.2 [facility] Comment on above: Order Comment: Specimen Type : BLOOD SPECIMENOrdering Facility: [facility] Address: [address] [place] [address] Performed By: #### 53087-9, 97478-9, 2776- ####[facility]ORATORYCLIA [id number] [place] [address] [place] Chloride [Moles/Vol] 94 mmol/L Low 97-105 [facility] Comment on above: Order Comment: Specimen Type : BLOOD SPECIMENOrdering Facility: [facility] Address: [address] [place] [address] Performed By: #### 46566-6, 23015-0, 2776-12 ####[facility]ORATORYCLIA [id number] [place] [address] [place] CO2 [Moles/Vol] 29 mmol/L Normal 22-30 [facility] Comment on above: Order Comment: Specimen Type : BLOOD SPECIMENOrdering Facility: [facility] Address: [address] [place] [address] Performed By: #### 18359-3, 58623-9, 2776-12 ####[facility]ORATORYCLIA [id number] [place] [address] [place] Creatinine [Mass/Vol] 0.98 mg/dL High 0.58-0.96 [facility] Comment on above: Order Comment: Specimen Type : BLOOD SPECIMENOrdering Facility: [facility] Address: [address] [place] [address] Performed By: #### 69095-3, 11976-1, 2777-1 ####[facility]ICAL CENTERIA [id number] [address] [place] ESTIMATED GLOMERULAR 73 mL/min/1.73m??? Normal >=[address] [facility] Comment on above: Order Comment: Specimen Type : BLOOD SPECIMENOrdering Facility: [facility] Address: [address] [place] [address] Result Comment: Estimated Gl omerular Filtration Rate [...] accurately reflect actual GFR. Performed By: #### 81635-8, 32182-9, 2777-1 ####[facility] MEDICAL CENTERIA [id number] [place] [address] [place] Glucose [Mass/Vol] 173 mg/dL High 74-99 [facility] Comment on above: Order Comment: Specimen Type : BLOOD SPECIMENOrdering Facility: [facility] Address: [address] [place] [address] Result Comment: The [place] Diabetes Association (ADA) provides guidance for cutoff [...] of Medical Care in Diabetes 2016, [facility] Diabetes Association. Diabetes Care. 2016.39(Suppl 1). Performed By: #### 85696-1, 42432-1, 7- ####[facility]ORATORYCLIA [id number] [address] STATES OF [facility] Potassium [Moles/Vol] 3.9 mmol/L Normal 3.7-5.1 [facility] Comment on above: Order Comment: Specimen Type : BLOOD SPECIMENOrdering Facility: [facility] Address: [address] [address] Performed By: #### 35981-7, 30507-4, 277- ####[facility]ORATORYCLIA [id number] [address] STATES OF [facility] Sodium [Moles/Vol] 137 mmol/L Normal 136-144 [facility] Comment on above: Order Comment: Specimen Type : BLOOD SPECIMENOrdering Facility: [facility] Address: [address] [place] [address] Performed By: #### 83080-3, 35113-0, 2776-12 ####[facility] HOSPITALCLIA [id number] [address] [place] Urea nitrogen [Mass/Vol] 19 mg/dL Normal 7-21 [facility] Comment on above: Order Comment: Specimen Type : BLOOD SPECIMENOrdering Facility: [facility] Address: [address] [place] [address] Performed By: #### 74083-9, 47873-9, 2776-12 ####[facility]ORATORYCLIA [id number] [address] [place] CBC panel Auto (Bld) on 12-31-2022 Erythrocyte distribution width 15.9 % High 11.5-15.0 [facility] (RBC) [Ratio] Comment on above: Order Comment: Specimen Type : BLOOD SPECIMENOrdering Facility: [facility] Address: [address] [place] [address] Performed By: #### 35383-6 # ###[facility]ORATORYCLIA [id number] [facility], [address] [place] Hematocrit (Bld) [Volume fraction] 34.1 % Low 36.0-4 6.0 [facility] Comment on above: Order Comment: Specimen Type : BLOOD SPECIMENOrdering Facility: [facility] Address: [address] [place] [address] Performed By: #### 49565-7 # ###[facility]ORATORYCLIA [id number] [address] [place] Hemoglobin (Bld) [Mass/Vol] 10.1 g/dL Low 11.5-15.5 [facility] Comment on above: Order Comment: Specimen Type : BLOOD SPECIMENOrdering Facility: [facility] Address: [address] [place] [address] Performed By: #### 19347-1 # ###[facility]ORATORYCLIA [id number] [address] [place] MCH (RBC) [Entitic mass] 27.8 pg Normal 26.0-34.0 [facility] Comment on above: Order Comment: Specimen Type : BLOOD SPECIMENOrdering Facility: [facility] Address: [address] [place] [address] Performed By: #### 16497-1 # ###[facility]ORATORYCLIA [id number] [facility], [address] [place] MCHC (RBC) [Mass/Vol] 29.6 g/dL Low 30.5-36.0 [facility] Comment on above: Order Comment: Specimen Type : BLOOD SPECIMENOrdering Facility: [facility] Address: [address] [place] [address] Performed By: #### 13717-1 # ###[facility]ORATORYCLIA [id number] [address] [place] MCV (RBC) [Entitic vol] 93.9 fL Normal 80.0-100.0 [facility] Comment on above: Order Comment: Specimen Type : BLOOD SPECIMENOrdering Facility: [facility] Address: [address] [place] [address] [place] [address] Performed By: #### 80169-6 # ###[facility]ATORYCLIA [id number] [facility] [place], [address] [place] Nucleated RBC (Bld) [#/Vol] 10*3/uL Normal <0.01 [facility] Comment on above: Order Comment: Specimen Type : BLOOD SPECIMENOrdering Facility: [facility] Address: [address] [address] Performed By: #### 58518-9 # ###[facility]ORATORYCLIA [id number] [facility] [place], [address] [place] Platelet mean volume (Bld) 9.2 fL Normal 9.0-12.7 [facility] [Entitic vol] Comment on above: Order Comment: Specimen Type : BLOOD SPECIMENOrdering Facility: [facility] Address: [address] [address] Performed By: #### 77395-3 # ###[facility]ORATORYCLIA [id number] [facility], [address] [place] Platelets (Bld) [#/Vol] 435 10*3/uL High 150-400 [facility] Comment on above: Order Comment: Specimen Type : BLOOD SPECIMENOrdering Facility: [facility] Address: [address] [place] [address] Performed By: #### 84501-1 # ###[facility]ORATORYCLIA [id number] [facility], [address] [place] RBC (Bld) [#/Vol] 3.63 10*6/uL Low 3.90-5.20 [facility] Comment on above: Order Comment: Specimen Type : BLOOD SPECIMENOrdering Facility: [facility] Address: [address] [address] Performed By: #### 51525-7 # ###[facility]ORATORYCLIA [id number] [facility] [place] [address] [place] WBC (Bld) [#/Vol] 15.84 10*3/uL High 3.70-11.00 [facility] Comment on above: Order Comment: Specimen Type : BLOOD SPECIMENOrdering Facility: [facility] Address: [address] [place] [address] Performed By: #### 26707-5 # ###[facility] LABORATORYCLIA [id number] [address] [place] CONSULT PROG on 12-31-2022 CONSULT PROG Normal [facility] CONSULT PROG Normal [facility] Calcium.ionized [Moles/Vol] on 12-31-19 23 Calcium.ionized (BldV) 1.16 mmol/L Normal 1.08-1.30 [facility] [Mass/Vol] [place] Comment on above: Order Comment: Specimen Type : BLOOD SPECIMENOrdering Facility: [facility] Address: [address] [place] [address] Performed By: #### 1994-0 ## ##[facility] LABORATORYCLIA [id number] [address] [place] Calcium.ionized adjusted to pH 1.12 mmol/L Normal 1.08-1.30 [facility] 7.4 (Bld) [Moles/Vol] [place] Comment on above: Order Comment: Specimen Type : BLOOD SPECIMENOrdering Facility: [facility] Address: [address] [place] [address] Performed By: #### 1994-0 ## ##[facility] LABORATORYCLIA [id number] [address] [place] Magnesium SerPl-mCnc on 12-31-2022 Magnesium [Mass/Vol] 1.5 mg/dL Low 1.7-2.3 [facility] Comment on above: Order Comment: Specimen Type : BLOOD SPECIMENOrdering Facility: [facility] Address: [address] [place] [address] Performed By: #### 29583-0, 56932-4, 2777-1 ####[facility] LABORATORYCLIA [id number] [place] [address] [facility] on 12-31-2022 NURSING PROG Normal [facility] Phosphate SerPl-mCnc on 12-31-2022 Phosphate [Mass/Vol] 3.5 mg/dL Normal 2.7-4.8 [facility] Comment on above: Order Comment: Specimen Type : BLOOD SPECIMENOrdering Facility: [facility] Address: [address] [place] [address] Performed By: #### 26889-8, 59336-0, 2777-1 ####[facility] LABORATORYCLIA [id number] [address] THERAPY NT on 12-31-2022 THERAPY NT Normal [facility] XR CHEST 1V FRONTAL on 12-31-2022 XR CHEST 1V FRONTAL Normal [facility] ALLIED HEALTH on 12-30-2022 ALLIED HEALTH Normal [facility] ARTERIAL BLOOD GASES on 12-30-2022 Base excess Calc (Bld) [Moles/Vol] 8 mmol/L High 0-2 [facility] Comment on above: Order Comment: Specimen Type : ARTERIAL BLOOD SPECIMENOrdering Facility: [facility] Address: [address] [place] [address] Performed By: #### ALLBG ### #[facility] LABORATORYCLIA [id number] [address] OF [facility] Body temperature 97.34 [degF] Normal [facility] Comment on above: Order Comment: Specimen Type : ARTERIAL BLOOD SPECIMENOrdering Facility: [facility] Address: [address] [place] [address] Performed By: #### ALLBG ### #[facility] LABORATORYCLIA [id number] [address] OF [place] Calcium.ionized (BldV) 1.19 mmol/L Normal 1.08-1.30 [facility] [Mass/Vol] [place] Comment on above: Order Comment: Specimen Type : ARTERIAL BLOOD SPECIMENOrdering Facility: [facility] Address: [address] [address] Performed By: #### ALLBG ### #[facility] LABORATORYCLIA [id number] [address] STATES [place] Calcium.ionized adjusted to pH 1.20 mmol/L Normal 1.08-1.30 [facility] 7.4 (BldA) [Moles/Vol] Genoveva burciaga Comment on above: Order Comment: Specimen Type : ARTERIAL BLOOD SPECIMENOrdering Facility: [facility] Address: [address] [address] Performed By: #### ALLBG ### #[facility] LABORATORYCLIA [id number] [address] STATES [place] Carboxyhemoglobin (BldA) [Mass 1.3 % Normal 0.0-2.0 [facility]] Center Comment on above: Order Comment: Specimen Type : ARTERIAL BLOOD SPECIMENOrdering Facility: [facility] Address: [address] [address] Result Comment: Carboxyhemog lobin Reference Range for Smokers: 2.0-8.0% Performed By: #### ALLBG ### #[facility] LABORATORYCLIA [id number] [place] [address] [place] Chloride [Moles/Vol] 100 mmol/L Low 102-109 [facility] Comment on above: Order Comment: Specimen Type : ARTERIAL BLOOD SPECIMENOrdering Facility: [facility] Address: [address] [address] Performed By: #### ALLBG ### #[facility]ORATORYCLIA [id number] [address] STATES [place] CO2 (Bld) [Partial pressure] 51 mm Hg High 36-46 [facility] Comment on above: Order Comment: Specimen Type : ARTERIAL BLOOD SPECIMENOrdering Facility: [facility] Address: [address] [address] Performed By: #### ALLBG ### #[facility]ORATORYCLIA [id number] [facility] [id number] [place] [address] [place] CO2 [Moles/Vol] 30 mmol/L High 22-28 [facility] Comment on above: Order Comment: Specimen Type : ARTERIAL BLOOD SPECIMENOrdering Facility: [facility] Address: [address] [address] Performed By: #### ALLBG ### #[facility]ORATORYCLIA [id number] [facility] STATES [place] CO2 adjusted to patient's actual 49 mmHg High 36-46 [facility] temperature (Bld) [Partial pressure] Comment on above: Order Comment: Specimen Type : ARTERIAL BLOOD SPECIMENOrdering Facility: [facility] Address: [address] [address] Performed By: #### ALLBG ### #[facility]ORATORYCLIA [id number] [facility] [address] OF [place] Glucose [Mass/Vol] 168 mg/dL High 60-105 [facility] Comment on above: Order Comment: Specimen Type : ARTERIAL BLOOD SPECIMENOrdering Facility: [facility] Address: [address] [address] Performed By: #### ALLBG ### #[facility]ORATORYCLIA [id number] [facility], [address] STATES [place] HCO3 (Bld) [Moles/Vol] 33 mmol/L High 22-26 [facility] Comment on above: Order Comment: Specimen Type : ARTERIAL BLOOD SPECIMENOrdering Facility: [facility] Address: [address] [address] Performed By: #### ALLBG ### #[facility]ORATORYCLIA [id number] [address] OF [place] Hematocrit (Bld) [Volume fraction] 30.2 % Low 36.0-4 6.0 [facility] Comment on above: Order Comment: Specimen Type : ARTERIAL BLOOD SPECIMENOrdering Facility: [facility] Address: [address] [address] Performed By: #### ALLBG ### #[facility]ORATORYCLIA [id number] [facility], [address] OF [facility] Hemoglobin (Bld) [Mass/Vol] 9.8 g/dL Low 11.5-15.5 [facility] Comment on above: Order Comment: Specimen Type : ARTERIAL BLOOD SPECIMENOrdering Facility: [facility] Address: [address] [place] [address] Performed By: #### ALLBG ### #[facility]ORATORYCLIA [id number] [facility] [place] [address] [place] [address] OF [place] Lactate [Moles/Vol] 0.8 mmol/L Normal 0.5-2.2 [facility] Comment on above: Order Comment: Specimen Type : ARTERIAL BLOOD SPECIMENOrdering Facility: [facility] Address: [address] [place] [address] Performed By: #### ALLBG ### #[facility]ORATORYCLIA [id number] [facility], [address] OF [place] Methemoglobin (Bld) [Mass fraction] 1.0 % Normal 0.0-1 .5 [facility] Comment on above: Order Comment: Specimen Type : ARTERIAL BLOOD SPECIMENOrdering Facility: [facility] Address: [address] [place] [address] Performed By: #### ALLBG ### #[facility]ORATORYCLIA [id number] [facility], [address] OF [place] O2 THERAPY Ventilator Normal [facility] Comment on above: Order Comment: Specimen Type : ARTERIAL BLOOD SPECIMENOrdering Facility: [facility] Address: [address] [place] [address] Performed By: #### ALLBG ### #[facility]ORATORYCLIA [id number] [facility], [address] OF [place] Oxygen (Bld) [Partial pressure] 72 mm Hg Low 85-95 [facility] Comment on above: Order Comment: Specimen Type : ARTERIAL BLOOD SPECIMENOrdering Facility: [facility] Address: [address] [address] Performed By: #### ALLBG ### #[facility]ORATORYCLIA [id number] [place] [address] [facility] Oxygen adjusted to patient's actual 69 mmHg Low 85-95 [facility] temperature (Bld) [Partial pressure] Comment on above: Order Comment: Specimen Type : ARTERIAL BLOOD SPECIMENOrdering Facility: [facility] Address: [address] [address] Performed By: #### ALLBG ### #[facility]ORATORYCLIA [id number] [facility] [place] [address] [place] [address] Oxyhemoglobin (BldA) [Mass fraction] 91 % Low 95-9 8 [facility] Comment on above: Order Comment: Specimen Type : ARTERIAL BLOOD SPECIMENOrdering Facility: [facility] Address: [address] [address] Performed By: #### ALLBG ### #[facility]ORATORYCLIA [id number] [place] [address] [facility] pH (Bld) 7.42 [pH] Normal 7.35-7.45 [facility] Comment on above: Order Comment: Specimen Type : ARTERIAL BLOOD SPECIMENOrdering Facility: [facility] Address: [address] [address] Performed By: #### ALLBG ### #[facility]ORATORYCLIA [id number] [place] [address] [facility] pH adjusted to patient's actual 7.43 Normal 7.35-7.45 [facility] temperature (Bld) Comment on above: Order Comment: Specimen Type : ARTERIAL BLOOD SPECIMENOrdering Facility: [facility] Address: [address] [address] Performed By: #### ALLBG ### #[facility]ORATORYCLIA [id number] [place] [address] [facility] Potassium [Moles/Vol] 3.9 mmol/L Normal 3.5-5.0 [facility] Comment on above: Order Comment: Specimen Type : ARTERIAL BLOOD SPECIMENOrdering Facility: [facility] Address: [address] [address] Performed By: #### ALLBG ### #[facility]ORATORYCLIA [id number] [address] [place] Sodium [Moles/Vol] 137 mmol/L Normal 136-144 [facility] Comment on above: Order Comment: Specimen Type : ARTERIAL BLOOD SPECIMENOrdering Facility: [facility] Address: [address] [address] Performed By: #### ALLBG ### #[facility] LABORATORYCLIA [id number] [place] [id number] [place] Basic metabolic 2000 panel on 3 Anion gap [Moles/Vol] 11 mmol/L Normal 9-18 [facility] Comment on above: Order Comment: Specimen Type : BLOOD SPECIMENOrdering Facility: [facility] Address: [address] [address] Performed By: #### 27607-8, 2776-12, ####[facility]ORATORYCLIA [id number] [place] [address] [place] Calcium [Mass/Vol] 9.4 mg/dL Normal 8.5-10.2 [facility] Comment on above: Order Comment: Specimen Type : BLOOD SPECIMENOrdering Facility: [facility] Address: [address] [address] Performed By: #### 92161-0, 2776-12, ####[facility]ORATORYCLIA [id number] [address] [place] Chloride [Moles/Vol] 94 mmol/L Low 97-105 [facility] Comment on above: Order Comment: Specimen Type : BLOOD SPECIMENOrdering Facility: [facility] Address: [address] [address] Performed By: #### 53841-7, 2776-12, ####[facility] HOSPITALCLIA [id number] [place] [address] [place] CO2 [Moles/Vol] 33 mmol/L High 22-30 [facility] Comment on above: Order Comment: Specimen Type : BLOOD SPECIMENOrdering Facility: [facility] Address: [address] [place] [address] Performed By: #### 88582-6, 2776-12, ####[facility]ICAL CENTERIA [id number] [place] [id number] [place] Creatinine [Mass/Vol] 1.13 mg/dL High 0.58-0.96 [facility] Comment on above: Order Comment: Specimen Type : BLOOD SPECIMENOrdering Facility: [facility] Address: [address] [place] [address] Performed By: #### 08936-0, 2776-12, ####[facility] MEDICAL CENTERIA [id number] [address] OF [facility] ESTIMATED GLOMERULAR 61 mL/min/1.73m??? Normal >=[address] [facility] FILTRATION RATE Center Comment on above: Order Comment: Specimen Type : BLOOD SPECIMENOrdering Facility: [facility] Address: [address] [place] [address] Result Comment: Estimated Gl omerular Filtration Rate [...] accurately reflect actual GFR. Performed By: #### 15747-9, 2776-12, ####[facility] LABORATORYCLIA [id number] [place] [address] [place] Glucose [Mass/Vol] 155 mg/dL High 74-99 [facility] Comment on above: Order Comment: Specimen Type : BLOOD SPECIMENOrdering Facility: [facility] Address: [address] [address] Result Comment: The English Diabetes Association (ADA) provides guidance for cutoff [...] Standards of Medical Care in Diabetes 2016, [facility] Diabetes Association. Diabetes Care. 2016.39(Suppl 1). Performed By: #### 51395-0, 27705-31, ####[employer] [facility] LABORATORYCLIA [id number] [place] [address] [place] Potassium [Moles/Vol] 3.4 mmol/L Low 3.7-5.1 [facility] Comment on above: Order Comment: Specimen Type : BLOOD SPECIMENOrdering Facility: [facility] Address: [address] [id number] Performed By: #### 25990-3, 27705-31, ####eMithilaHaatTEAYS VALLEY [facility] LABORATORYCLIA [id number] [place] [address] [place] Sodium [Moles/Vol] 138 mmol/L Normal 136-144 [facility] Comment on above: Order Comment: Specimen Type : BLOOD SPECIMENOrdering Facility: [facility] Address: [address] [facility]PITALMonae CH[address]RABORTY[address] Performed By: #### 76497-7, 27705-31, ####[employer] [facility] LABORATORYCLIA [id number] [place] [address] [place] Urea nitrogen [Mass/Vol] 22 mg/dL High 7-21 [facility] Comment on above: Order Comment: Specimen Type : BLOOD SPECIMENOrdering Facility: [facility] Address: [address] [place] [address] Performed By: #### 97609-4, 2777-1, 05093-8 ####[facility]ORATORYCLIA [id number] [address] OF [place] CASE MANAGEM on 12-30-2022 CASE MANAGEM Normal [facility] CBC panel Auto (Bld) on 12-30-2022 Erythrocyte distribution width 16.1 % High 11.5-15.0 [facility] (RBC) [Ratio] Comment on above: Order Comment: Specimen Type : BLOOD SPECIMENOrdering Facility: [facility] Address: [address] [place] [address] Performed By: #### 25233-2 # ###[facility] LABORATORYCLIA [id number] [address] STATES [place] Hematocrit (Bld) [Volume fraction] 30.3 % Low 36.0-4 6.0 [facility] Comment on above: Order Comment: Specimen Type : BLOOD SPECIMENOrdering Facility: [facility] Address: [address] [place] [address] Performed By: #### 12389-2 # ###[facility] LABORATORYCLIA [id number] [address] [place] Hemoglobin (Bld) [Mass/Vol] 9.0 g/dL Low 11.5-15.5 [facility] Comment on above: Order Comment: Specimen Type : BLOOD SPECIMENOrdering Facility: [facility] Address: [address] [place] [address] Performed By: #### 78004-6 # ###[facility] LABORATORYCLIA [id number] [place] [address] [place] MCH (RBC) [Entitic mass] 27.8 pg Normal 26.0-34.0 [facility] Comment on above: Order Comment: Specimen Type : BLOOD SPECIMENOrdering Facility: [facility] Address: [address] [address] Performed By: #### 32593-8 # ###[facility]ORATORYCLIA [id number] [facility], [address] STATES [facility] MCHC (RBC) [Mass/Vol] 29.7 g/dL Low 30.5-36.0 [facility] Comment on above: Order Comment: Specimen Type : BLOOD SPECIMENOrdering Facility: [facility] Address: [address] [address] Performed By: #### 39564-2 # ###[facility] LABORATORYCLIA [id number] [facility], [address] STATES [place] MCV (RBC) [Entitic vol] 93.5 fL Normal 80.0-100.0 [facility] Comment on above: Order Comment: Specimen Type : BLOOD SPECIMENOrdering Facility: [facility] Address: [address] [address] Performed By: #### 83448-2 # ###[facility]ORATORYCLIA [id number] [facility], [address] OF [place] Nucleated RBC (Bld) [#/Vol] 10*3/uL Normal <0.01 [facility] Comment on above: Order Comment: Specimen Type : BLOOD SPECIMENOrdering Facility: [facility] Address: [address] [address] Performed By: #### 09193-8 # ###[facility] LABORATORYCLIA [id number] [facility], [address] STATES [place] Platelet mean volume (Bld) 9.5 fL Normal 9.0-12.7 [facility] [Entitic vol] Comment on above: Order Comment: Specimen Type : BLOOD SPECIMENOrdering Facility: [facility] Address: [address] [address] Performed By: #### 98579-0 # ###[facility]ORATORYCLIA [id number] [facility] [address] [place] Platelets (Bld) [#/Vol] 401 10*3/uL High 150-400 [facility] Comment on above: Order Comment: Specimen Type : BLOOD SPECIMENOrdering Facility: [facility] Address: [address] [place] [address] Performed By: #### 97492-2 # ###[facility]ORATORYCLIA [id number] [facility] [place] [address] [place] RBC (Bld) [#/Vol] 3.24 10*6/uL Low 3.90-5.20 [facility] Comment on above: Order Comment: Specimen Type : BLOOD SPECIMENOrdering Facility: [facility] Address: [address] [place] [address] Performed By: #### 33029-3 # ###[facility]ORATORYCLIA [id number] [facility], [address] [place] WBC (Bld) [#/Vol] 14.20 10*3/uL High 3.70-11.00 [facility] Comment on above: Order Comment: Specimen Type : BLOOD SPECIMENOrdering Facility: [facility] Address: [address] [place] [address] Performed By: #### 12530-7 # ###[facility]ORATORYCLIA [id number] [facility] [place], [facility] CONSULT on 12-30-2022 CONSULT [facility] CON[facility] PROG on 12-30-2022 CONSULT PROG Normal [facility] Calcium.ionized [Moles/Vol] on 12-30-19 23 Calcium.ionized (BldV) 1.19 mmol/L Normal 1.08-1.30 [facility] [Mass/Vol] [place] Comment on above: Order Comment: Specimen Type : BLOOD SPECIMENOrdering Facility: [facility] Address: [address] [place] [address] Performed By: #### 1995-0 ## ##[facility] LABORATORYCLIA [id number] [address] OF [place] Calcium.ionized adjusted to pH 1.23 mmol/L Normal 1.08-1.30 [facility] 7.4 (Bld) [Moles/Vol] Center Comment on above: Order Comment: Specimen Type : BLOOD SPECIMENOrdering Facility: [facility] Address: [address] [place] [address] Performed By: #### 1995-0 ## ##[facility]ORATORYCLIA [id number] [address] OF [place] Magnesium SerPl-mCnc on 12-30-2022 Magnesium [Mass/Vol] 1.7 mg/dL Normal 1.7-2.3 [facility] Comment on above: Order Comment: Specimen Type : BLOOD SPECIMENOrdering Facility: [facility] Address: [address] [place] [address] Performed By: #### 22196-6, 27705-31, ####[facility] HOSPITALCLIA [id number] [place] [address] [place] NUTRITION on 12-30-2022 NUTRITION Normal [facility] Phosphate SerPl-mCnc on 12-30-2022 Phosphate [Mass/Vol] 4.2 mg/dL Normal 2.7-4.8 [facility] Comment on above: Order Comment: Specimen Type : BLOOD SPECIMENOrdering Facility: [facility] Address: [address] [place] [address] Performed By: #### 62645-5, 27705-31, ####[facility] HOSPITALCLIA [id number] [place] [address] [place] XR CHEST 1V FRONTAL on 12-30-2022 XR CHEST 1V FRONTAL Normal [facility] ALLIED HEALTH on 12-29-2022 ALLIED HEALTH Normal [facility] Bacteria Spec Resp Cult on 12-29-2022 Bacteria identified CULTURE, RESPIRATORY: Normal [facility] Respiratory culture Nom No growth 2 [facility] (Unsp spec) GRAM STAIN: No organisms seen Many Polymorphonuclear leukocytes Rare Epithelial cells Comment on above: Performed By: #### 42063-6 # ###[facility] LABORATORYCLIA [id number] [place] [address] [place] Basic metabolic 2000 panel on 3 Anion gap [Moles/Vol] 10 mmol/L Normal 9-18 [facility] Comment on above: Order Comment: Specimen Type : BLOOD SPECIMENOrdering Facility: [facility] Address: [address] [place] [address] Performed By: #### 34623-7, , 2776-12 ####[facility] LABORATORYCLIA [id number] [place] [address] [place] Calcium [Mass/Vol] 9.5 mg/dL Normal 8.5-10.2 [facility] Comment on above: Order Comment: Specimen Type : BLOOD SPECIMENOrdering Facility: [facility] Address: [address] [place] [address] Performed By: #### 28033-4, , 2776-12 ####[facility] LABORATORYCLIA [id number] [place] [address] [place] Chloride [Moles/Vol] 94 mmol/L Low 97-105 [facility] Comment on above: Order Comment: Specimen Type : BLOOD SPECIMENOrdering Facility: [facility] Address: [address] [place] [address] Performed By: #### 29299-6, , 2776-12 ####[facility] LABORATORYCLIA [id number] [place] [address] [place] CO2 [Moles/Vol] 33 mmol/L High 22-30 [facility] Comment on above: Order Comment: Specimen Type : BLOOD SPECIMENOrdering Facility: [facility] Address: [address] [place] [address] Performed By: #### 19236-6, , 2776-12 ####[facility]ORATORYCLIA [id number] [place] [address] [place] Creatinine [Mass/Vol] 1.17 mg/dL High 0.58-0.96 [facility] Comment on above: Order Comment: Specimen Type : BLOOD SPECIMENOrdering Facility: [facility] Address: [address] [place] [address] Performed By: #### 60082-7, , 2776-12 ####[facility] HOSPITALCLIA [id number] [place] [address] [place] ESTIMATED GLOMERULAR 59 mL/min/1.73m??? Low >=60 A [facility] RATE Center Comment on above: Order Comment: Specimen Type : BLOOD SPECIMENOrdering Facility: [facility] Address: [address] [place] [address] Result Comment: Estimated Gl omerular Filtration Rate [...] accurately reflect actual GFR. Performed By: #### 24022-7, , 2776-12 ####[facility] MEDICAL CENTERIA [id number] [place] [address] [place] Glucose [Mass/Vol] 267 mg/dL High 74-99 [facility] Comment on above: Order Comment: Specimen Type : BLOOD SPECIMENOrdering Facility: [facility] Address: [address] L[address]NN[address]ae [address] Result Comment: The [place] Diabetes Association (ADA) provides guidance for cutoff [...] Standards of Medical Care in Diabetes 2016, [facility] Diabetes Association. Diabetes Care. 2016.39(Suppl 1). Performed By: #### 67186-3, , 2776-12 ####[facility] LABORATORYCLIA [id number] [place] [address] [place] Potassium [Moles/Vol] 4.2 mmol/L Normal 3.7-5.1 [facility] Comment on above: Order Comment: Specimen Type : BLOOD SPECIMENOrdering Facility: [facility] Address: [address] [place] [address] Performed By: #### 86814-3, , 2776-12 ####[facility] HOSPITALCLIA [id number] [address] STATES OF [facility] Sodium [Moles/Vol] 137 mmol/L Normal 136-144 [facility] Comment on above: Order Comment: Specimen Type : BLOOD SPECIMENOrdering Facility: [facility] Address: [address] [place] [address] Performed By: #### 50367-3, , 2776-12 ####[facility] HOSPITALCLIA [id number] [address] [place] Urea nitrogen [Mass/Vol] 19 mg/dL Normal 7-21 [facility] Comment on above: Order Comment: Specimen Type : BLOOD SPECIMENOrdering Facility: [facility] Address: [address] [address] Performed By: #### 42737-8, , 2776-12 ####[facility] LABORATORYCLIA [id number] [address] [place] CBC panel Auto (Bld) on 12-29-2022 Erythrocyte distribution width 16.2 % High 11.5-15.0 [facility] (RBC) [Ratio] Comment on above: Order Comment: Specimen Type : BLOOD SPECIMENOrdering Facility: [facility] Address: [address] [address] Performed By: #### 02378-7 # ###[facility] LABORATORYCLIA [id number] [address] Hematocrit (Bld) [Volume fraction] 29.8 % Low 36.0-4 6.0 [facility] Comment on above: Order Comment: Specimen Type : BLOOD SPECIMENOrdering Facility: [facility] Address: [address] [address] Performed By: #### 72412-3 # ###[facility]ORATORYCLIA [id number] [address] Hemoglobin (Bld) [Mass/Vol] 8.9 g/dL Low 11.5-15.5 [facility] Comment on above: Order Comment: Specimen Type : BLOOD SPECIMENOrdering Facility: [facility] Address: [address] [place] [address] Performed By: #### 74903-4 # ###[facility] LABORATORYCLIA [id number] [address] STATES OF [facility] MCH (RBC) [Entitic mass] 28.0 pg Normal 26.0-34.0 [facility] Comment on above: Order Comment: Specimen Type : BLOOD SPECIMENOrdering Facility: [facility] Address: [address] [address] Performed By: #### 96253-1 # ###[facility]ORATORYCLIA [id number] [address] [place] MCHC (RBC) [Mass/Vol] 29.9 g/dL Low 30.5-36.0 [facility] Comment on above: Order Comment: Specimen Type : BLOOD SPECIMENOrdering Facility: [facility] Address: [address] [address] Performed By: #### 13437-5 # ###[facility]ORATORYCLIA [id number] [address] MCV (RBC) [Entitic vol] 93.7 fL Normal 80.0-100.0 [facility] Comment on above: Order Comment: Specimen Type : BLOOD SPECIMENOrdering Facility: [facility] Address: [address] [address] Performed By: #### 75490-6 # ###[facility]ORATORYCLIA [id number] [facility] [place] [address] [place] Nucleated RBC (Bld) [#/Vol] 0.02 10*3/uL High <0.01 [facility] Comment on above: Order Comment: Specimen Type : BLOOD SPECIMENOrdering Facility: [facility] Address: [address] [address] Performed By: #### 61672-3 # ###[facility]ATORYCLIA [id number] [facility] [place] [address] [place] Platelet mean volume (Bld) 9.5 fL Normal 9.0-12.7 [facility] [Entitic vol] Comment on above: Order Comment: Specimen Type : BLOOD SPECIMENOrdering Facility: [facility] Address: [address] [address] Performed By: #### 73270-9 # ###[facility]ORATORYCLIA [id number] [facility] [place], [address] [place] Platelets (Bld) [#/Vol] 394 10*3/uL Normal 150-400 [facility] Comment on above: Order Comment: Specimen Type : BLOOD SPECIMENOrdering Facility: [facility] Address: [address] Performed By: #### 96430-8 # ###[facility]ATORYCLIA [id number] [facility] [place], [address] [place] [address] [place] RBC (Bld) [#/Vol] 3.18 10*6/uL Low 3.90-5.20 [facility] Comment on above: Order Comment: Specimen Type : BLOOD SPECIMENOrdering Facility: [facility] Address: [address] Performed By: #### 31129-5 # ###[facility]ORATORYCLIA [id number] [place] [address] [place] WBC (Bld) [#/Vol] 16.20 10*3/uL High 3.70-11.00 [facility] Comment on above: Order Comment: Specimen Type : BLOOD SPECIMENOrdering Facility: [facility] Address: [address] [id number] Performed By: #### 29085-9 # ###[facility]ORATORYCLIA [id number] [address] [place] CONSULT PROG on 12-29-2022 CONSULT PROG Normal [facility] CONSULT PROG Normal [facility] Calcium.ionized [Moles/Vol] on 12-29-19 23 Calcium.ionized (BldV) 1.16 mmol/L Normal 1.08-1.30 [facility] [Mass/Vol] [place] Comment on above: Order Comment: Specimen Type : BLOOD SPECIMENOrdering Facility: [facility] Address: [address] [phone] Performed By: #### 1994-0 ## ##[facility] HOSPITALCLIA [id number] [address] [place] Calcium.ionized adjusted to pH 1.20 mmol/L Normal 1.08-1.30 [facility] 7.4 (Bld) [Moles/Vol] [place] Comment on above: Order Comment: Specimen Type : BLOOD SPECIMENOrdering Facility: [facility] Address: [address] [phone] Performed By: #### 1994- ## ##[facility]ORATORYCLIA [id number] [address] [place] Magnesium SerPl-mCnc on 12-29-2022 Magnesium [Mass/Vol] 1.6 mg/dL Low 1.7-2.3 [facility] Comment on above: Order Comment: Specimen Type : BLOOD SPECIMENOrdering Facility: [facility] Address: [place] [address] Performed By: #### 69143-9, 56360-9, 2776-12 ####[facility]ORATORYCLIA [id number] [place] [address] [place] Phosphate SerPl-mCnc on 12-29-2022 Phosphate [Mass/Vol] 4.6 mg/dL Normal 2.7-4.8 [facility] Comment on above: Order Comment: Specimen Type : BLOOD SPECIMENOrdering Facility: [facility] Address: [address] [address] Performed By: #### 57869-8, 39215-2, 2776-12 ####[facility]ORATORYCLIA [id number] [place] [address] [place] XR CHEST 1V FRONTAL on 12-29-2022 XR CHEST 1V FRONTAL Normal [facility] Basic metabolic 2000 panel on Anion gap [Moles/Vol] 11 mmol/L Normal 9-18 [facility] Comment on above: Order Comment: Specimen Type : BLOOD SPECIMENOrdering Facility: [facility] Address: [address] [place] [place] [address] Performed By: #### 80929-0, 2776-12 ####[facility]ORATORYCLIA [id number] [place] [address] [place] Calcium [Mass/Vol] 9.0 mg/dL Normal 8.5-10.2 [facility] Comment on above: Order Comment: Specimen Type : BLOOD SPECIMENOrdering Facility: [facility] Address: [address] [address] Performed By: #### 07547-6, 2776-12 ####[facility]ORATORYCLIA [id number] [place] [address] [place] Chloride [Moles/Vol] 94 mmol/L Low 97-105 [facility] Comment on above: Order Comment: Specimen Type : BLOOD SPECIMENOrdering Facility: [facility] Address: [address] [address] Performed By: #### 01637-1, 2776-12 ####[facility]ORATORYCLIA [id number] [place] [address] [place] CO2 [Moles/Vol] 30 mmol/L Normal 22-30 [facility] Comment on above: Order Comment: Specimen Type : BLOOD SPECIMENOrdering Facility: [facility] Address: [address] [place] [address] Performed By: #### 15801-2, 2776-12 ####[facility]ORATORYCLIA [id number] [place], [place] [id number] [place] [address] [place] Creatinine [Mass/Vol] 1.10 mg/dL High 0.58-0.96 [facility] Comment on above: Order Comment: Specimen Type : BLOOD SPECIMENOrdering Facility: [facility] Address: [address] [place] [address] Performed By: #### 36153-3, 2776-12 ####[facility] CENTERIA [id number] [address] [place] ESTIMATED GLOMERULAR 63 mL/min/1.73m??? Normal >=[address] [facility] FILTRATION RATE Center Comment on above: Order Comment: Specimen Type : BLOOD SPECIMENOrdering Facility: [facility] Address: [address] [place] [address] Result Comment: Estimated Gl omerular Filtration Rate [...] accurately reflect actual GFR. Performed By: #### 45515-7, 2776-12 ####[facility]ORATORYCLIA [id number] [place] [address] [place] Glucose [Mass/Vol] 247 mg/dL High 74-99 [facility] Comment on above: Order Comment: Specimen Type : BLOOD SPECIMENOrdering Facility: [facility] Address: [address] [place] [address] Result Comment: The [place] Diabetes Association (ADA) provides guidance for cutoff [...] Standards of Medical Care in Diabetes 2016, [facility] Diabetes Association. Diabetes Care. 2016.39(Suppl 1). Performed By: #### 78734-1, 2777- ####[facility]ORATORYCLIA [id number] [place] [address] [place] Potassium [Moles/Vol] 4.2 mmol/L Normal 3.7-5.1 [facility] Comment on above: Order Comment: Specimen Type : BLOOD SPECIMENOrdering Facility: [facility] Address: [address] [place] [address] Performed By: #### 55677-8, 2776-12 ####[facility]ORATORYCLIA [id number] [place] [address] [place] Sodium [Moles/Vol] 135 mmol/L Low 136-144 [facility] Comment on above: Order Comment: Specimen Type : BLOOD SPECIMENOrdering Facility: [facility] Address: [address] [place] [address] Performed By: #### 06546-0, 27705-31 ####[facility]ORATORYCLIA [id number] [place] [address] [place] Urea nitrogen [Mass/Vol] 11 mg/dL Normal 7-21 [facility] Comment on above: Order Comment: Specimen Type : BLOOD SPECIMENOrdering Facility: [facility] Address: [address] [address] Performed By: #### 01677-1, 2777-1 ####[facility]ORATORYCLIA [id number] [address] CBC panel Auto (Bld) on 12-28-2022 Erythrocyte distribution width 16.3 % High 11.5-15.0 [facility] (RBC) [Ratio] Comment on above: Order Comment: Specimen Type : BLOOD SPECIMENOrdering Facility: [facility] Address: [address] [address] Performed By: #### 01215-0 # ###[facility]ORATORYCLIA [id number] [address] OF [facility] Hematocrit (Bld) [Volume fraction] 29.8 % Low 36.0-4 6.0 [facility] Comment on above: Order Comment: Specimen Type : BLOOD SPECIMENOrdering Facility: [facility] Address: [address] [address] Performed By: #### 05282-6 # ###[facility]ATORYCLIA [id number] [address] Hemoglobin (Bld) [Mass/Vol] 8.9 g/dL Low 11.5-15.5 [facility] Comment on above: Order Comment: Specimen Type : BLOOD SPECIMENOrdering Facility: [facility] Address: [address] [address] Performed By: #### 75429-6 # ###[facility]ORATORYCLIA [id number] [address] OF [place] MCH (RBC) [Entitic mass] 28.2 pg Normal 26.0-34.0 [facility] Comment on above: Order Comment: Specimen Type : BLOOD SPECIMENOrdering Facility: [facility] Address: [address] [address] Performed By: #### 39923-8 # ###[facility]ORATORYCLIA [id number] [facility], [address] [place] MCHC (RBC) [Mass/Vol] 29.9 g/dL Low 30.5-36.0 [facility] Comment on above: Order Comment: Specimen Type : BLOOD SPECIMENOrdering Facility: [facility] Address: [address] [place] [address] Performed By: #### 65350-9 # ###[facility]ORATORYCLIA [id number] [facility] [place], [address] [place] MCV (RBC) [Entitic vol] 94.3 fL Normal 80.0-100.0 [facility] Comment on above: Order Comment: Specimen Type : BLOOD SPECIMENOrdering Facility: [facility] Address: [address] [place] [address] Performed By: #### 81190-7 # ###[facility]ORATORYCLIA [id number] [facility], [address] [place] Nucleated RBC (Bld) [#/Vol] 0.02 10*3/uL High <0.01 [facility] Comment on above: Order Comment: Specimen Type : BLOOD SPECIMENOrdering Facility: [facility] Address: [address] [place] [address] Performed By: #### 31438-0 # ###[facility]ORATORYCLIA [id number] [facility], [address] [place] Platelet mean volume (Bld) 9.4 fL Normal 9.0-12.7 [facility] [Entitic vol] Comment on above: Order Comment: Specimen Type : BLOOD SPECIMENOrdering Facility: [facility] Address: [address] [place] [address] Performed By: #### 65534-7 # ###[facility]ORATORYCLIA [id number] [facility] [place] Platelets (Bld) [#/Vol] 359 10*3/uL Normal 150-400 [facility] Comment on above: Order Comment: Specimen Type : BLOOD SPECIMENOrdering Facility: [facility] Address: [address] [place] [address] [place] [place] [address] Performed By: #### 50775-5 # ###[facility]ORATORYCLIA [id number] [facility], [facility] [place] RBC (Bld) [#/Vol] 3.16 10*6/uL Low 3.90-5.20 [facility] Comment on above: Order Comment: Specimen Type : BLOOD SPECIMENOrdering Facility: [facility] Address: [address] [address] Performed By: #### 09210-4 # ###[facility]ORATORYCLIA [id number] [place] [id number] [facility] WBC (Bld) [#/Vol] 16.86 10*3/uL High 3.70-11.00 [facility] Comment on above: Order Comment: Specimen Type : BLOOD SPECIMENOrdering Facility: [facility] Address: [address] [place] [address] Performed By: #### 62000-4 # ###[facility]ORATORYCLIA [id number] [address] OF [facility] CONSULT PROG on 12-28-2022 CONSULT PROG Normal [facility] [place] [facility] Calcium.ionized [Moles/Vol] on 12-28-19 23 Calcium.ionized (BldV) [Mass/Vol] 0.99 mmol/L Low 1.08-1. 30 [facility] Comment on above: Order Comment: Specimen Type : BLOOD SPECIMENOrdering Facility: [facility] Address: [address] [place] [address] Performed By: #### 1995-0 ## ##[facility]ORATORYCLIA [id number] [address] [place] Calcium.ionized adjusted to pH 7.4 1.07 mmol/L Low 1.08-1 .30 [facility] (d) [Moles/Vol] Center Comment on above: Order Comment: Specimen Type : BLOOD SPECIMENOrdering Facility: [facility] Address: [address] [address] Performed By: #### 1995-0 ## ##[facility]ORATORYCLIA [id number] [place] [address] [facility] Magnesium SerPl-mCnc on 12-28-2022 Magnesium [Mass/Vol] 1.5 mg/dL Low 1.7-2.3 [facility] Comment on above: Order Comment: Specimen Type : BLOOD SPECIMENOrdering Facility: [facility] Address: [address] [place] [address] Performed By: #### 26537-1 # ###[facility]ORATORYCLIA [id number] [address] [place] NURSING PROG on 12-28-2022 NURSING PROG Normal [facility] Phosphate SerPl-mCnc on 12-28-2022 Phosphate [Mass/Vol] 3.7 mg/dL Normal 2.7-4.8 [facility] Comment on above: Order Comment: Specimen Type : BLOOD SPECIMENOrdering Facility: [facility] Address: [address] [place] [address] Performed By: #### 29782-5, 2777-1 ####[facility]ORATORYCLIA [id number] [address] [place] Prealbumin [Mass/Vol] on 12-28-2022 Prealbumin Nephelometry [Mass/Vol] 10 mg/dL Low 17-36 [facility] Comment on above: Order Comment: Specimen Type : BLOOD SPECIMENOrdering Facility: [facility] Address: [address] [place] [address] Performed By: #### 60704-8 # ###[facility]ORATORYCLIA [id number] [address] [place] Vancomycin random [Mass/Vol] on 023 Vancomycin [Mass/Vol] 10.3 ug/mL Normal 10.0-20.0 [facility] Comment on above: Order Comment: Specimen Type : BLOOD SPECIMENOrdering Facility: [facility] Address: [address] [address] Result Comment: Reference ra nges and high/low indicator flags are provided as general guidelin es only. The treating physician must determine appropriate target levels/dosing based on the specific clinical situation. Performed By: #### 4091-5 ## ##[facility]ORATORYCLIA [id number] [facility] [place] [address] [place] XR CHEST 1V FRONTAL on 12-28-2022 XR CHEST 1V FRONTAL Normal [facility] ALLIED HEALTH on 12-27-2022 ALLIED HEALTH Normal [facility] ALLIED HEALTH Normal [facility] ANES POSTPROC EVAL on 12-27-2022 ANES POSTPROC EVAL Normal [facility] ARTERIAL BLOOD GASES on 12-27-2022 Base excess Calc (Bld) [Moles/Vol] 3 mmol/L High 0-2 [facility] Comment on above: Order Comment: Specimen Type : ARTERIAL BLOOD SPECIMENOrdering Facility: [facility] Address: [address] [address] Performed By: #### ALLBG ### #[facility]ORATORYCLIA [id number] [facility], [place] [address] [place] Body temperature 100.76 [degF] Normal [facility] Comment on above: Order Comment: Specimen Type : ARTERIAL BLOOD SPECIMENOrdering Facility: [facility] Address: [address] [address] Performed By: #### ALLBG ### #[facility]ATORYCLIA [id number] [facility] [place] [address] [place] Calcium.ionized (BldV) 1.16 mmol/L Normal 1.08-1.30 [facility] [Mass/Vol] Center Comment on above: Order Comment: Specimen Type : ARTERIAL BLOOD SPECIMENOrdering Facility: [facility] Address: [address] [address] Performed By: #### ALLBG ### #[facility]ATORYCLIA [id number] [address] Calcium.ionized adjusted to pH 1.16 mmol/L Normal 1.08-1.30 [facility] 7.4 (BldA) [Moles/Vol] Genoveva burciaga Comment on above: Order Comment: Specimen Type : ARTERIAL BLOOD SPECIMENOrdering Facility: [facility] Address: [address] [place] [address] Performed By: #### ALLBG ### #[facility]ORATORYCLIA [id number] [address] OF [facility] Carboxyhemoglobin (BldA) [Mass 1.5 % Normal 0.0-2.0 [facility]] Center Comment on above: Order Comment: Specimen Type : ARTERIAL BLOOD SPECIMENOrdering Facility: [facility] Address: [address] [place] [address] Result Comment: Carboxyhemog lobin Reference Range for Smokers: 2.0-8.0% Performed By: #### ALLBG ### #[facility]ORATORYCLIA [id number] [address] [facility] Chloride [Moles/Vol] 104 mmol/L Normal 102-109 [facility] Comment on above: Order Comment: Specimen Type : ARTERIAL BLOOD SPECIMENOrdering Facility: [facility] Address: [address] [place] [address] Performed By: #### ALLBG ### #[facility]ORATORYCLIA [id number] [address] OF [place] CO2 (Bld) [Partial pressure] 48 mm Hg High 36-46 [facility] Comment on above: Order Comment: Specimen Type : ARTERIAL BLOOD SPECIMENOrdering Facility: [facility] Address: [address] [place] [address] Performed By: #### ALLBG ### #[facility]ORATORYCLIA [id number] [address] OF [place] CO2 [Moles/Vol] 27 mmol/L Normal 22-28 [facility] Comment on above: Order Comment: Specimen Type : ARTERIAL BLOOD SPECIMENOrdering Facility: [facility] Address: [address] [address] Performed By: #### ALLBG ### #[facility]ORATORYCLIA [id number] [facility] [place], [facility] CO2 adjusted to patient's actual 51 mmHg High 36-46 [facility] temperature (Bld) [Partial pressure] Comment on above: Order Comment: Specimen Type : ARTERIAL BLOOD SPECIMENOrdering Facility: [facility] Address: [address] [address] Performed By: #### ALLBG ### #[facility]ORATORYCLIA [id number] [facility], [address] [place] Glucose [Mass/Vol] 267 mg/dL High 60-105 [facility] Comment on above: Order Comment: Specimen Type : ARTERIAL BLOOD SPECIMENOrdering Facility: [facility] Address: [address] [address] Performed By: #### ALLBG ### #[facility]ORATORYCLIA [id number] [facility] [place], [address] HCO3 (Bld) [Moles/Vol] 28 mmol/L High 22-26 [facility] Comment on above: Order Comment: Specimen Type : ARTERIAL BLOOD SPECIMENOrdering Facility: [facility] Address: [address] [address] Performed By: #### ALLBG ### #[facility]ORATORYCLIA [id number] [facility] [place], [address] OF [place] Hematocrit (Bld) [Volume fraction] 29.4 % Low 36.0-4 6.0 [facility] Comment on above: Order Comment: Specimen Type : ARTERIAL BLOOD SPECIMENOrdering Facility: [facility] Address: [address] [address] Performed By: #### ALLBG ### #[facility]ORATORYCLIA [id number] [facility] [place] [address] [place] Hemoglobin (Bld) [Mass/Vol] 9.5 g/dL Low 11.5-15.5 [facility] Comment on above: Order Comment: Specimen Type : ARTERIAL BLOOD SPECIMENOrdering Facility: [facility] Address: [address] [address] Performed By: #### ALLBG ### #[facility]ORATORYCLIA [id number] [facility] [place] [id number] [facility] OF [place] Lactate [Moles/Vol] 1.2 mmol/L Normal 0.5-2.2 [facility] Comment on above: Order Comment: Specimen Type : ARTERIAL BLOOD SPECIMENOrdering Facility: [facility] Address: [address] [place] [address] Performed By: #### ALLBG ### #[facility]ORATORYCLIA [id number] [facility] [address] [place] Methemoglobin (Bld) [Mass fraction] 1.2 % Normal 0.0-1 .5 [facility] Comment on above: Order Comment: Specimen Type : ARTERIAL BLOOD SPECIMENOrdering Facility: [facility] Address: [address] [address] Performed By: #### ALLBG ### #[facility]ORATORYCLIA [id number] [facility], [address] [place] O2 THERAPY Ventilator Normal [facility] Comment on above: Order Comment: Specimen Type : ARTERIAL BLOOD SPECIMENOrdering Facility: [facility] Address: [address] [address] Performed By: #### ALLBG ### #[facility] LABORATORYCLIA [id number] [facility], [address] [place] Oxygen (Bld) [Partial pressure] 93 mm Hg Normal 85-95 [facility] Comment on above: Order Comment: Specimen Type : ARTERIAL BLOOD SPECIMENOrdering Facility: [facility] Address: [address] [place] [address] Performed By: #### ALLBG ### #[facility]ATORYCLIA [id number] [place] [address] [facility] Oxygen adjusted to patient's actual 100 mmHg High 85-95 [facility] temperature (Bld) [Partial pressure] Comment on above: Order Comment: Specimen Type : ARTERIAL BLOOD SPECIMENOrdering Facility: [facility] Address: [address] [place] [address] Performed By: #### ALLBG ### #[facility]ORATORYCLIA [id number] [place] [address] [facility] Oxyhemoglobin (BldA) [Mass fraction] 94 % Low 95-9 8 [facility] Comment on above: Order Comment: Specimen Type : ARTERIAL BLOOD SPECIMENOrdering Facility: [facility] Address: [address] [place] [address] Performed By: #### ALLBG ### #[facility]ORATORYCLIA [id number] [facility] [place] pH (Bld) 7.39 [pH] Normal 7.35-7.45 [facility] Comment on above: Order Comment: Specimen Type : ARTERIAL BLOOD SPECIMENOrdering Facility: [facility] Address: [address] [place] [address] Performed By: #### ALLBG ### #[facility]ATORYCLIA [id number] [place] [address] [facility] pH adjusted to patient's actual 7.37 Normal 7.35-7.45 [facility] temperature (Bld) Comment on above: Order Comment: Specimen Type : ARTERIAL BLOOD SPECIMENOrdering Facility: [facility] Address: [address] [place] [address] Performed By: #### ALLBG ### #[facility]ATORYCLIA [id number] [place] [address] [facility] Potassium [Moles/Vol] 4.5 mmol/L Normal 3.5-5.0 [facility] Comment on above: Order Comment: Specimen Type : ARTERIAL BLOOD SPECIMENOrdering Facility: [facility] Address: [address] [place] [address] Performed By: #### ALLBG ### #[facility]ORATORYCLIA [id number] [place] [address] [place] [facility] Sodium [Moles/Vol] 136 mmol/L Normal 136-144 [facility] Comment on above: Order Comment: Specimen Type : ARTERIAL BLOOD SPECIMENOrdering Facility: [facility] Address: [address] [place] [address] Performed By: #### ALLBG ### #[facility]ORATORYCLIA [id number] [place] [address] [place] [facility] Basic metabolic 2000 panel on 3 Anion gap [Moles/Vol] 10 mmol/L Normal 9-18 [facility] Comment on above: Order Comment: Specimen Type : BLOOD SPECIMENOrdering Facility: [facility] Address: [address] [place] [address] Performed By: #### 91477-0, 1988-03, 2776-12, ####[facility]ORATORYCLIA 36D03 [id number] [place] [address] [facility] Calcium [Mass/Vol] 8.9 mg/dL Normal 8.5-10.2 [facility] Comment on above: Order Comment: Specimen Type : BLOOD SPECIMENOrdering Facility: [facility] Address: [address] Performed By: #### 08042-7, 1988-03, 2776-12, ####[facility]ORATORYCLIA 36D03 [id number] [place] [address] [place] Chloride [Moles/Vol] 98 mmol/L Normal 97-105 [facility] Comment on above: Order Comment: Specimen Type : BLOOD SPECIMENOrdering Facility: [facility] Address: [address] [place] [address] Performed By: #### 21105-8, 1988-03, 2777 ####[facility]ORATORYCLIA 36D03 [id number] [place] [address] [place] CO2 [Moles/Vol] 28 mmol/L Normal 22-30 [facility] Comment on above: Order Comment: Specimen Type : BLOOD SPECIMENOrdering Facility: [facility] Address: [address] [place] [address] Performed By: #### 80016-6, 1988-03, 2776-12, ####[facility] MEDICAL CENTERIA 36D03 [id number] [place] [address] [facility] Creatinine [Mass/Vol] 0.91 mg/dL Normal 0.58-0.96 [facility] Comment on above: Order Comment: Specimen Type : BLOOD SPECIMENOrdering Facility: [facility] Address: [address] [place] [address] Performed By: #### 57632-6, 1988-03, 2776-12, ####[facility] MEDICAL CENTERIA 36D03 [id number] [place] [address] [place] ESTIMATED GLOMERULAR 79 mL/min/1.73m??? Normal >=[address] [facility] FILTRATION RATE Center Comment on above: Order Comment: Specimen Type : BLOOD SPECIMENOrdering Facility: [facility] Address: [address] [place] [address] Result Comment: Estimated Gl omerular Filtration Rate [...] accurately reflect actual GFR. Performed By: #### 07090-6, 1988-03, 2776-12, ####[facility] LABORATORYIA 36D03 [id number] [place] [address] [place] Glucose [Mass/Vol] 190 mg/dL High 74-99 [facility] Comment on above: Order Comment: Specimen Type : BLOOD SPECIMENOrdering Facility: [facility] Address: [address] [place] [address] Result Comment: The English Diabetes Association (ADA) provides guidance for cutoff [...] Standards of Medical Care in Diabetes 2016, [facility] Diabetes Association. Diabetes Care. 2016.39(Suppl 1). Performed By: #### 67973-5, 1988-03, 2776-12, ####[facility]ORATORYCLIA 36D03 [id number] [place] [address] [place] Potassium [Moles/Vol] 4.5 mmol/L Normal 3.7-5.1 [facility] Comment on above: Order Comment: Specimen Type : BLOOD SPECIMENOrdering Facility: [facility] Address: [address] [place] [place] [address] Performed By: #### 52470-7, 1988-03, 2776-12, ####[facility]ORATORYCLIA 36D03 [id number] [place] [address] [place] Sodium [Moles/Vol] 136 mmol/L Normal 136-144 [facility] Comment on above: Order Comment: Specimen Type : BLOOD SPECIMENOrdering Facility: [facility] Address: [address] [place] [address] Performed By: #### 72024-7, 1988-03, 2776-12, ####[facility]ORATORYCLIA 36D03 [id number] [place] [address] [place] Urea nitrogen [Mass/Vol] 12 mg/dL Normal 7-21 [facility] Comment on above: Order Comment: Specimen Type : BLOOD SPECIMENOrdering Facility: [facility] Address: [address] [place] [address] Performed By: #### 47641-5, 1987-5, 2777-1, 54776-0 ####[facility]ORATORYCLIA 36D03 [id number] [place] [address] [facility] CBC panel Auto (Bld) on 12-27-2022 Erythrocyte distribution width 16.2 % High 11.5-15.0 [facility] (RBC) [Ratio] Comment on above: Order Comment: Specimen Type : BLOOD SPECIMENOrdering Facility: [facility] Address: [address] [place] [address] Performed By: #### 82748-3 # ###[facility]ORATORYCLIA [id number] [address] STATES [facility] Hematocrit (Bld) [Volume fraction] 28.4 % Low 36.0-4 6.0 [facility] Comment on above: Order Comment: Specimen Type : BLOOD SPECIMENOrdering Facility: [facility] Address: [address] [place] [address] Performed By: #### 28552-4 # ###[facility]ORATORYCLIA [id number] [place] [id number] [place] [facility] Hemoglobin (Bld) [Mass/Vol] 8.5 g/dL Low 11.5-15.5 [facility] Comment on above: Order Comment: Specimen Type : BLOOD SPECIMENOrdering Facility: [facility] Address: [address] [place] [address] Performed By: #### 42566-6 # ###[facility]ORATORYCLIA [id number] [address] [place] MCH (RBC) [Entitic mass] 28.1 pg Normal 26.0-34.0 [facility] Comment on above: Order Comment: Specimen Type : BLOOD SPECIMENOrdering Facility: [facility] Address: [address] [place] [address] Performed By: #### 06462-9 # ###[facility]ORATORYCLIA [id number] [address] [place] MCHC (RBC) [Mass/Vol] 29.9 g/dL Low 30.5-36.0 [facility] Comment on above: Order Comment: Specimen Type : BLOOD SPECIMENOrdering Facility: [facility] Address: [address] [place] [address] Performed By: #### 63117-2 # ###[facility]ORATORYCLIA [id number] [address] MCV (RBC) [Entitic vol] 93.7 fL Normal 80.0-100.0 [facility] Comment on above: Order Comment: Specimen Type : BLOOD SPECIMENOrdering Facility: [facility] Address: [address] [place] [address] Performed By: #### 64657-0 # ###[facility]ORATORYCLIA [id number] [address] Nucleated RBC (Bld) [#/Vol] 10*3/uL Normal <0.01 [facility] Comment on above: Order Comment: Specimen Type : BLOOD SPECIMENOrdering Facility: [facility] Address: [address] [place] [address] Performed By: #### 29061-0 # ###[facility]ORATORYCLIA [id number] [facility], [address] Platelet mean volume (Bld) 9.4 fL Normal 9.0-12.7 [facility] [Entitic vol] Comment on above: Order Comment: Specimen Type : BLOOD SPECIMENOrdering Facility: [facility] Address: [address] [place] [address] Performed By: #### 94419-8 # ###[facility]ORATORYCLIA [id number] [place] [address] [place] Platelets (Bld) [#/Vol] 333 10*3/uL Normal 150-400 [facility] Comment on above: Order Comment: Specimen Type : BLOOD SPECIMENOrdering Facility: [facility] Address: [address] [place] [address] Performed By: #### 51223-9 # ###[facility]ORATORYCLIA [id number] [place] [address] [place] RBC (Bld) [#/Vol] 3.03 10*6/uL Low 3.90-5.20 [facility] Comment on above: Order Comment: Specimen Type : BLOOD SPECIMENOrdering Facility: [facility] Address: [address] [place] [address] Performed By: #### 26273-1 # ###[facility]ORATORYCLIA [id number] [place] [address] [place] WBC (Bld) [#/Vol] 16.79 10*3/uL High 3.70-11.00 [facility] Comment on above: Order Comment: Specimen Type : BLOOD SPECIMENOrdering Facility: [facility] Address: [address] [place] [address] Performed By: #### 72796-5 # ###[facility]ORATORYCLIA [id number] [place] [address] [place] CONSULT PROG on 12-27-2022 CONSULT PROG Normal [facility] CRP SerPl-mCnc on 12-27-2022 CRP [Mass/Vol] 12.9 mg/dL High <0.9 [facility] Comment on above: Order Comment: Specimen Type : BLOOD SPECIMENOrdering Facility: [facility] Address: [address] [place] [address] Performed By: #### 95333-9, 1987-, 2777-1, 69701-3 ####[facility]ORATORYCLIA 36D03 [id number] [place] [address] [place] Calcium.ionized [Moles/Vol] on 12-27-19 23 Calcium.ionized (BldV) [Mass/Vol] 1.06 mmol/L Low 1.08-1. 30 [facility] Comment on above: Order Comment: Specimen Type : BLOOD SPECIMENOrdering Facility: [facility] Address: [address] Performed By: #### 1994- ## ##[facility]ORATORYCLIA [id number] [place] [address] [place] Calcium.ionized adjusted to pH 1.11 mmol/L Normal 1.08-1.30 [facility] 7.4 (Bld) [Moles/Vol] Center Comment on above: Order Comment: Specimen Type : BLOOD SPECIMENOrdering Facility: [facility] Address: [address] [place] [address] Performed By: #### ## ##[facility]ORATORYCLIA [id number] [place] [address] [place] Magnesium SerPl-mCnc on 12-27-2022 Magnesium [Mass/Vol] 1.7 mg/dL Normal 1.7-2.3 [facility] Comment on above: Order Comment: Specimen Type : BLOOD SPECIMENOrdering Facility: [facility] Address: [address] [place] [address] Performed By: #### 59664-8, 1988-03, 2776-12, ####[facility]ORATORYCLIA 36D03 [id number] [place] [address] [facility] [place] Phosphate SerPl-mCnc on 12-27-2022 Phosphate [Mass/Vol] 4.4 mg/dL Normal 2.7-4.8 [facility] Comment on above: Order Comment: Specimen Type : BLOOD SPECIMENOrdering Facility: [facility] Address: [place] [place] [address] Performed By: #### 30501-9, 1988-03, 2776-12, ####[facility]ORATORYCLIA 36D03 [id number] [place] [address] [facility] [place] XR CHEST 1V FRONTAL on 12-27-2022 XR CHEST 1V FRONTAL Normal [facility] ALLIED HEALTH on 12-26-2022 ALLIED HEALTH Normal [facility] ALLIED HEALTH Normal [facility] ANES PRE-OP on 12-26-2022 ANES PRE-OP Normal [facility] Basic metabolic 2000 panel on 3 Anion gap [Moles/Vol] 10 mmol/L Normal 9-18 [facility] Comment on above: Order Comment: Specimen Type : BLOOD SPECIMENOrdering Facility: [facility] Address: [address] [place] [address] Performed By: #### 13782-1, 257-8, 67415-4, 2776- ####[facility]ORATORYCLIA 36D03 [id number] [place] [id number] [place] Calcium [Mass/Vol] 9.1 mg/dL Normal 8.5-10.2 [facility] Comment on above: Order Comment: Specimen Type : BLOOD SPECIMENOrdering Facility: [facility] Address: [address] [place] [address] Performed By: #### 73821-8, 257-8, 22645-1, 2776- ####[facility]ORATORYCLIA 36D03 [id number] [place] [address] [place] Chloride [Moles/Vol] 101 mmol/L Normal 97-105 [facility] Comment on above: Order Comment: Specimen Type : BLOOD SPECIMENOrdering Facility: [facility] Address: [address] [place] [address] Performed By: #### 71951-6, 257-8, 25290-2, 2776-1 ####[facility]ORATORYCLIA 36D03 [id number] [place] [address] [place] CO2 [Moles/Vol] 26 mmol/L Normal 22-30 [facility] Comment on above: Order Comment: Specimen Type : BLOOD SPECIMENOrdering Facility: [facility] Address: [address] [place] [address] Performed By: #### 67881-1, 2571-8, 22773-3, 2776- ####[facility] HOSPITALCLIA 36D03 [id number] [place] [address] [facility] Creatinine [Mass/Vol] 1.14 mg/dL High 0.58-0.96 [facility] Comment on above: Order Comment: Specimen Type : BLOOD SPECIMENOrdering Facility: [facility] Address: [address] [place] [address] Performed By: #### 61976-5, 257-8, 34306-4, 2776-12 ####[facility]ICAL CENTERIA 36D03 [id number] [place] [address] [facility] ESTIMATED GLOMERULAR 61 mL/min/1.73m??? Normal >=[address] [facility] FILTRATION RATE Center Comment on above: Order Comment: Specimen Type : BLOOD SPECIMENOrdering Facility: [facility] Address: [address] [place] [address] Result Comment: Estimated Gl omerular Filtration Rate [...] accurately reflect actual GFR. Performed By: #### 02421-6, 257-8, 27678-9, 2776-12 ####[facility]ORATORYCLIA 36D03 [id number] [place] [address] [facility] Glucose [Mass/Vol] 246 mg/dL High 74-99 [facility] Comment on above: Order Comment: Specimen Type : BLOOD SPECIMENOrdering Facility: [facility] Address: [address] [place] [address] Result Comment: The English Diabetes Association (ADA) provides guidance for cutoff [...] Standards of Medical Care in Diabetes 2016, [facility] Diabetes Association. Diabetes Care. 2016.39(Suppl 1). Performed By: #### 10782-0, 2570-8, , 2776-12 ####[facility]ORATORYCLIA 36D03 [id number] [place] [address] [place] Potassium [Moles/Vol] 4.4 mmol/L Normal 3.7-5.1 [facility] Comment on above: Order Comment: Specimen Type : BLOOD SPECIMENOrdering Facility: [facility] Address: [address] [place] [address] Performed By: #### 13150-0, 8, , 2776-12 ####[facility] HOSPITALCLIA 36D03 [id number] [place] [address] [place] Sodium [Moles/Vol] 137 mmol/L Normal 136-144 [facility] Comment on above: Order Comment: Specimen Type : BLOOD SPECIMENOrdering Facility: [facility] Address: [address] [place] [address] Performed By: #### 61631-4, 8, , 2776-12 ####[facility]ORATORYCLIA 36D03 [id number] [place] [address] [facility] [place] Urea nitrogen [Mass/Vol] 20 mg/dL Normal 7-21 [facility] Comment on above: Order Comment: Specimen Type : BLOOD SPECIMENOrdering Facility: [facility] Address: [address] [place] [address] Performed By: #### 23324-5, 2570-8, , 2776- ####[facility]ORATORYCLIA [id number] [place] CASE MGT INIT ASSES on 12-26-2022 CASE MGT INIT ASSES Normal [facility] CBC panel Auto (Bld) on 12-26-2022 Erythrocyte distribution width 16.4 % High 11.5-15.0 [facility] (RBC) [Ratio] Comment on above: Order Comment: Specimen Type : BLOOD SPECIMENOrdering Facility: [facility] Address: [address] [place] [address] Performed By: #### 83079-3 # ###[facility]ORATORYCLIA [id number] [address] OF [facility] Hematocrit (Bld) [Volume fraction] 29.4 % Low 36.0-4 6.0 [facility] Comment on above: Order Comment: Specimen Type : BLOOD SPECIMENOrdering Facility: [facility] Address: [address] [place] [address] Performed By: #### 88001-0 # ###[facility]ORATORYCLIA [id number] [address] STATES [facility] Hemoglobin (Bld) [Mass/Vol] 8.8 g/dL Low 11.5-15.5 [facility] Comment on above: Order Comment: Specimen Type : BLOOD SPECIMENOrdering Facility: [facility] Address: [address] [place] [address] Performed By: #### 85829-8 # ###[facility]ORATORYCLIA [id number] [address] [place] MCH (RBC) [Entitic mass] 28.7 pg Normal 26.0-34.0 [facility] Comment on above: Order Comment: Specimen Type : BLOOD SPECIMENOrdering Facility: [facility] Address: [address] [place] [address] Performed By: #### 64846-5 # ###[facility]ORATORYCLIA [id number] [address] [place] MCHC (RBC) [Mass/Vol] 29.9 g/dL Low 30.5-36.0 [facility] Comment on above: Order Comment: Specimen Type : BLOOD SPECIMENOrdering Facility: [facility] Address: [address] [place] [address] Performed By: #### 62563-3 # ###[facility]ORATORYCLIA [id number] [facility], [address] [place] MCV (RBC) [Entitic vol] 95.8 fL Normal 80.0-100.0 [facility] Comment on above: Order Comment: Specimen Type : BLOOD SPECIMENOrdering Facility: [facility] Address: [address] [place] [address] Performed By: #### 52662-7 # ###[facility]ORATORYCLIA [id number] [address] [place] Nucleated RBC (Bld) [#/Vol] 10*3/uL Normal <0.01 [facility] Comment on above: Order Comment: Specimen Type : BLOOD SPECIMENOrdering Facility: [facility] Address: [address] [place] [address] Performed By: #### 50394-3 # ###[facility]ORATORYCLIA [id number] [address] [place] Platelet mean volume (Bld) 9.4 fL Normal 9.0-12.7 [facility] [Entitic vol] Comment on above: Order Comment: Specimen Type : BLOOD SPECIMENOrdering Facility: [facility] Address: [address] Performed By: #### 83273-7 # ###[facility]ORATORYCLIA [id number] [address] [place] Platelets (Bld) [#/Vol] 304 10*3/uL Normal 150-400 [facility] Comment on above: Order Comment: Specimen Type : BLOOD SPECIMENOrdering Facility: [facility] Address: [address] [place] [address] Performed By: #### 83699-6 # ###[facility] LABORATORYCLIA [id number] [facility] [place] [address] [place] RBC (Bld) [#/Vol] 3.07 10*6/uL Low 3.90-5.20 [facility] Comment on above: Order Comment: Specimen Type : BLOOD SPECIMENOrdering Facility: [facility] Address: [address] [place] [id number] Performed By: #### 76561-0 # ###[facility]ORATORYCLIA [id number] [place] [address] [place] WBC (Bld) [#/Vol] 17.12 10*3/uL High 3.70-11.00 [facility] Comment on above: Order Comment: Specimen Type : BLOOD SPECIMENOrdering Facility: [facility] Address: [address] [place] [id number] Performed By: #### 48898-8 # ###[facility] HOSPITALCLIA [id number] [facility], [address] [place] CNPN on 12-26-2022 CNPN [address] [facility] CONSULT PROG on 12-26-2022 CONSULT PROG Normal [facility] Calcium.ionized [Moles/Vol] on 023 Calcium.ionized (BldV) 1.22 mmol/L Normal 1.08-1.30 [facility] [Mass/Vol] Center Comment on above: Order Comment: Specimen Type : BLOOD SPECIMENOrdering Facility: [facility] Address: [address] [place] [id number] Performed By: #### 1995-0 ## ##[facility] LABORATORYCLIA [id number] [facility], [address] Calcium.ionized adjusted to pH 1.21 mmol/L Normal 1.08-1.30 [facility] 7.4 (Bld) [Moles/Vol] Center Comment on above: Order Comment: Specimen Type : BLOOD SPECIMENOrdering Facility: [facility] Address: [address] [place] [address] Performed By: #### 1995-0 ## ##[facility] CENTERIA [id number] [address] HCG ( test) Ql (U) on 12-26-19 23 Specific gravity (U) [Rel 1.020 Normal 1.006-1.029 [facility] density] Comment on above: Order Comment: Specimen Type : URINE SPECIMENOrdering Facility: [facility] Address: [address] [place] [address] Result Comment: If specific gravity is <1.005 then results may be falsely negative. Serum HCG is recommended. Performed By: #### 2106-3 ## ##[facility] CENTERIA [id number] [address] HCG Preg Ur Ql on 12-26-2022 HCG ( test) Ql (U) Negative Normal Negative [facility] Comment on above: Order Comment: Specimen Type : URINE SPECIMENOrdering Facility: [facility] Address: [address] [address] Result Comment: This test is intended to aid in the early detection of . Very dilute ur ine samples, as indicated by a low specific gravity, may not co ntain labor representative levels of hCG. This test detects [...] for . Performed By: #### 2106-3 ## ##[facility] [id number] [address] [place] Magnesium SerPl-mCnc on 12-26-2022 Magnesium [Mass/Vol] 1.4 mg/dL Low 1.7-2.3 [facility] Comment on above: Order Comment: Specimen Type : BLOOD SPECIMENOrdering Facility: [facility] [facility] Address: [address] [place] [address] Performed By: #### 21366-2, 2570-8, , 2776-12 ####[facility] LABORATORYCLIA [id number] [place] [address] [facility] OPERATIVE NO on 12-26-2022 OPERATIVE NO Normal [facility] Phosphate SerPl-mCnc on 12-26-2022 Phosphate [Mass/Vol] 3.0 mg/dL Normal 2.7-4.8 [facility] Comment on above: Order Comment: Specimen Type : BLOOD SPECIMENOrdering Facility: [facility] Address: [address] [place] [address] Performed By: #### 93533-6, 8, , 2776-12 ####[facility] LABORATORYCLIA [id number] [place] [id number] [facility] Trigl SerPl-mCnc on 12-26-2022 Triglyceride [Mass/Vol] 198 mg/dL High <150 [facility] Comment on above: Order Comment: Specimen Type : BLOOD SPECIMENOrdering Facility: [facility] Address: [address] [place] [address] Result Comment: <150 mg/dL, Normal 150-199 mg/dL, Borderline high 200-499 mg/dL, High>499 mg/d L, Very highReference:1. National Cholesterol Education Progra m ATP III Guideline At-A-Glance Quick Desk Reference: National a rt, Lung, and Blood [place]. National Institutes of Health. 2001: NIH Publication No. 01-3305. Performed By: #### 14035-9, 2570-8, 35344-5, 2776-12 ####[facility] LABORATORYCLIA [id number] [place] [address] [facility] [place] Triglyceride [Mass/Vol] on 12-26-2022 FASTING TIME 0 hrs Normal [facility] Comment on above: Order Comment: Specimen Type : BLOOD SPECIMENOrdering Facility: [facility] Address: [address] [address] Result Comment: impact 1.5 t ube feed continuous Performed By: #### 66800-4, 2571-8, 51770-6, 2777-1 ####[facility] LABORATORYCLIA [id number] [place] XR CHEST 1V FRONTAL on 12-26-2022 XR CHEST 1V FRONTAL Normal [facility] ALLIED HEALTH on 12-25-2022 ALLIED HEALTH Normal [facility] ALLIED HEALTH Normal [facility] ANES POSTPROC EVAL on 12-25-2022 ANES POSTPROC EVAL Normal [facility] ANES PRE-OP on 12-25-2022 ANES PRE-OP Normal [facility] ARTERIAL BLOOD GASES on 12-25-2022 Base excess Calc (Bld) [Moles/Vol] 0 mmol/L Normal 0-2 [facility] Comment on above: Order Comment: Specimen Type : ARTERIAL BLOOD SPECIMENOrdering Facility: [facility] Address: [address] [address] Performed By: #### ALLBG ### #[facility] LABORATORYCLIA [id number] [place] [address] [place] Body temperature 98.96 [degF] Normal [facility] Comment on above: Order Comment: Specimen Type : ARTERIAL BLOOD SPECIMENOrdering Facility: [facility] Address: [address] [address] Performed By: #### ALLBG ### #[facility] LABORATORYCLIA [id number] [place] [address] [place] Calcium.ionized (BldV) 1.18 mmol/L Normal 1.08-1.30 [facility] [Mass/Vol] [place] Comment on above: Order Comment: Specimen Type : ARTERIAL BLOOD SPECIMENOrdering Facility: [facility] Address: [address] [address] Performed By: #### ALLBG ### #[facility]ORATORYCLIA [id number] [place], [place] [id number] [place] [address] [place] Calcium.ionized adjusted to pH 1.15 mmol/L Normal 1.08-1.30 [facility] 7.4 (BldA) [Moles/Vol] Genoveva burciaga Comment on above: Order Comment: Specimen Type : ARTERIAL BLOOD SPECIMENOrdering Facility: [facility] Address: [address] [place] [address] Performed By: #### ALLBG ### #[facility]ORATORYCLIA [id number] [address] [place] Carboxyhemoglobin (BldA) [Mass <1.0 Normal 0.0-2.0 [facility]] Center Comment on above: Order Comment: Specimen Type : ARTERIAL BLOOD SPECIMENOrdering Facility: [facility] Address: [address] [place] [address] Result Comment: Carboxyhemog lobin Reference Range for Smokers: 2.0-8.0% Performed By: #### ALLBG ### #[facility]ORATORYCLIA [id number] [address] [place] Chloride [Moles/Vol] 102 mmol/L Normal 102-109 [facility] Comment on above: Order Comment: Specimen Type : ARTERIAL BLOOD SPECIMENOrdering Facility: [facility] Address: [address] [address] Performed By: #### ALLBG ### #[facility]ORATORYCLIA [id number] [address] [place] CO2 (Bld) [Partial pressure] 48 mm Hg High 36-46 [facility] Comment on above: Order Comment: Specimen Type : ARTERIAL BLOOD SPECIMENOrdering Facility: [facility] Address: [address] [address] Performed By: #### ALLBG ### #[facility]ORATORYCLIA [id number] [address] [place] CO2 [Moles/Vol] 24 mmol/L Normal 22-28 [facility] Comment on above: Order Comment: Specimen Type : ARTERIAL BLOOD SPECIMENOrdering Facility: [facility] Address: [address] [place] [address] Performed By: #### ALLBG ### #[facility]ORATORYCLIA [id number] [place] [address] [facility] [place] CO2 adjusted to patient's actual 48 mmHg High 36-46 [facility] temperature (Bld) [Partial pressure] Comment on above: Order Comment: Specimen Type : ARTERIAL BLOOD SPECIMENOrdering Facility: [facility] Address: [address] [address] Performed By: #### ALLBG ### #[facility]ORATORYCLIA [id number] [facility] [place] [id number] [place] [address] [place] Glucose [Mass/Vol] 188 mg/dL High 60-105 [facility] Comment on above: Order Comment: Specimen Type : ARTERIAL BLOOD SPECIMENOrdering Facility: [facility] Address: [address] [address] Performed By: #### ALLBG ### #[facility]ORATORYCLIA [id number] [facility] [place] [id number] [place] [address] [place] HCO3 (Bld) [Moles/Vol] 26 mmol/L Normal 22-26 [facility] Comment on above: Order Comment: Specimen Type : ARTERIAL BLOOD SPECIMENOrdering Facility: [facility] Address: [address] [address] Performed By: #### ALLBG ### #[facility]ORATORYCLIA [id number] [place] [address] [place] Hematocrit (Bld) [Volume fraction] 28.1 % Low 36.0-4 6.0 [facility] Comment on above: Order Comment: Specimen Type : ARTERIAL BLOOD SPECIMENOrdering Facility: [facility] Address: [address] [address] Performed By: #### ALLBG ### #[facility]ORATORYCLIA [id number] [place] [address] [facility] [place] Hemoglobin (Bld) [Mass/Vol] 9.1 g/dL Low 11.5-15.5 [facility] Comment on above: Order Comment: Specimen Type : ARTERIAL BLOOD SPECIMENOrdering Facility: [facility] Address: [address] [place] [address] Performed By: #### ALLBG ### #[facility]ORATORYCLIA [id number] [facility] [place], [facility] [place] Lactate [Moles/Vol] 0.8 mmol/L Normal 0.5-2.2 [facility] Comment on above: Order Comment: Specimen Type : ARTERIAL BLOOD SPECIMENOrdering Facility: [facility] Address: [address] [place] [address] Performed By: #### ALLBG ### #[facility]ATORYCLIA [id number] [facility] [place], [facility] [place] Methemoglobin (Bld) [Mass fraction] % Normal 0.0-1 .5 [facility] Comment on above: Order Comment: Specimen Type : ARTERIAL BLOOD SPECIMENOrdering Facility: [facility] Address: [address] [place] [address] Performed By: #### ALLBG ### #[facility]ORATORYCLIA [id number] [facility] [place], [facility]307 [facility] [place] O2 THERAPY Ventilator Normal [facility] Comment on above: Order Comment: Specimen Type : ARTERIAL BLOOD SPECIMENOrdering Facility: [facility] Address: [address] [address] Performed By: #### ALLBG ### #[facility]ATORYCLIA [id number] [facility] [place], [facility]307 [facility] [place] Oxygen (Bld) [Partial pressure] 174 mm Hg High 85-95 [facility] Comment on above: Order Comment: Specimen Type : ARTERIAL BLOOD SPECIMENOrdering Facility: [facility] Address: [address] [address] Performed By: #### ALLBG ### #[facility]ORATORYCLIA [id number] [place] [address] [facility] Oxygen adjusted to patient's actual 175 mmHg High 85-95 [facility] temperature (Bld) [Partial pressure] Comment on above: Order Comment: Specimen Type : ARTERIAL BLOOD SPECIMENOrdering Facility: [facility] Address: [address] [place] [address] Performed By: #### ALLBG ### #[facility]ORATORYCLIA [id number] [facility] [place] [id number] [place] [address] Oxyhemoglobin (BldA) [Mass fraction] 96 % Normal 95-9 8 [facility] Comment on above: Order Comment: Specimen Type : ARTERIAL BLOOD SPECIMENOrdering Facility: [facility] Address: [address] [place] [address] Performed By: #### ALLBG ### #[facility]ORATORYCLIA [id number] [facility] [place], [address] [place] pH (Bld) 7.35 [pH] Normal 7.35-7.45 [facility] Comment on above: Order Comment: Specimen Type : ARTERIAL BLOOD SPECIMENOrdering Facility: [facility] Address: [address] [place] [address] Performed By: #### ALLBG ### #[facility]ORATORYCLIA [id number] [facility] [place], [place] [address] [place] [address] pH adjusted to patient's actual 7.35 Normal 7.35-7.45 [facility] temperature (Bld) Comment on above: Order Comment: Specimen Type : ARTERIAL BLOOD SPECIMENOrdering Facility: [facility] Address: [address] [place] [address] Performed By: #### ALLBG ### #[facility]ORATORYCLIA [id number] [place] [address] [place] Potassium [Moles/Vol] 4.9 mmol/L Normal 3.5-5.0 [facility] Comment on above: Order Comment: Specimen Type : ARTERIAL BLOOD SPECIMENOrdering Facility: [facility] Address: [address] [address] Performed By: #### ALLBG ### #[facility]ORATORYCLIA [id number] [facility] [place], [address] [place] Sodium [Moles/Vol] 137 mmol/L Normal 136-144 [facility] Comment on above: Order Comment: Specimen Type : ARTERIAL BLOOD SPECIMENOrdering Facility: [facility] Address: [address] [address] Performed By: #### ALLBG ### #[facility]ORATORYCLIA [id number] [address] [place] Base deficit (BldA) [Moles/Vol] -2 mmol/L Normal -2-0 [facility] Comment on above: Order Comment: Specimen Type : ARTERIAL BLOOD SPECIMENOrdering Facility: [facility] Address: [address] [address] Performed By: #### ALLBG ### #[facility]ORATORYCLIA [id number] [address] [place] Body temperature 98.78 [degF] Normal [facility] Comment on above: Order Comment: Specimen Type : ARTERIAL BLOOD SPECIMENOrdering Facility: [facility] Address: [address] [address] Performed By: #### ALLBG ### #[facility]ORATORYCLIA [id number] [facility] [place], [address] [place] Calcium.ionized (BldV) [Mass/Vol] 1.06 mmol/L Low 1.08-1. 30 [facility] Comment on above: Order Comment: Specimen Type : ARTERIAL BLOOD SPECIMENOrdering Facility: [facility] Address: [address] [address] Performed By: #### ALLBG ### #[facility]ORATORYCLIA [id number] [place] [address] OF [facility] Calcium.ionized adjusted to pH 7.4 1.01 mmol/L Low 1.08-1 .30 [facility] (dA) [Moles/Vol] [place] Comment on above: Order Comment: Specimen Type : ARTERIAL BLOOD SPECIMENOrdering Facility: [facility] Address: [address] [place] [address] Performed By: #### ALLBG ### #[facility]ORATORYCLIA [id number] [address] [place] Carboxyhemoglobin (BldA) [Mass 2.2 % High 0.0-2.0 [facility] fraction] Comment on above: Order Comment: Specimen Type : ARTERIAL BLOOD SPECIMENOrdering Facility: [facility] Address: [address] [place] [address] Result Comment: Carboxyhemog lobin Reference Range for Smokers: 2.0-8.0% Performed By: #### ALLBG ### #[facility]ORATORYCLIA [id number] [address] [place] Chloride [Moles/Vol] 110 mmol/L High 102-109 [facility] Comment on above: Order Comment: Specimen Type : ARTERIAL BLOOD SPECIMENOrdering Facility: [facility] Address: [address] [place] [address] Performed By: #### ALLBG ### #[facility]ORATORYCLIA [id number] [address] [place] CO2 (Bld) [Partial pressure] 47 mm Hg High 36-46 [facility] Comment on above: Order Comment: Specimen Type : ARTERIAL BLOOD SPECIMENOrdering Facility: [facility] Address: [address] [place] [address] Performed By: #### ALLBG ### #[facility]ORATORYCLIA [id number] [address] [place] CO2 [Moles/Vol] 22 mmol/L Normal 22-28 [facility] Comment on above: Order Comment: Specimen Type : ARTERIAL BLOOD SPECIMENOrdering Facility: [facility] Address: [address] [address] Performed By: #### ALLBG ### #[facility]ORATORYCLIA [id number] [facility], [address] CO2 adjusted to patient's actual 47 mmHg High 36-46 [facility] temperature (Bld) [Partial pressure] Comment on above: Order Comment: Specimen Type : ARTERIAL BLOOD SPECIMENOrdering Facility: [facility] Address: [address] [address] Performed By: #### ALLBG ### #[facility]ORATORYCLIA [id number] [place] [address] [place] Glucose [Mass/Vol] 162 mg/dL High 60-105 [facility] Comment on above: Order Comment: Specimen Type : ARTERIAL BLOOD SPECIMENOrdering Facility: [facility] Address: [address] [address] Performed By: #### ALLBG ### #[facility]ORATORYCLIA [id number] [facility], [address] HCO3 (Bld) [Moles/Vol] 23 mmol/L Normal 22-26 [facility] Comment on above: Order Comment: Specimen Type : ARTERIAL BLOOD SPECIMENOrdering Facility: [facility] Address: [address] [address] Performed By: #### ALLBG ### #[facility]ORATORYCLIA [id number] [facility], [address] [place] Hematocrit (Bld) [Volume fraction] 31.8 % Low 36.0-4 6.0 [facility] Comment on above: Order Comment: Specimen Type : ARTERIAL BLOOD SPECIMENOrdering Facility: [facility] Address: [address] [place] [address] Performed By: #### ALLBG ### #[facility]ORATORYCLIA [id number] [place] [address] [place] Hemoglobin (Bld) [Mass/Vol] 10.3 g/dL Low 11.5-15.5 [facility] Comment on above: Order Comment: Specimen Type : ARTERIAL BLOOD SPECIMENOrdering Facility: [facility] Address: [address] [address] Performed By: #### ALLBG ### #[facility]ORATORYCLIA [id number] [place] [address] [place] Lactate [Moles/Vol] 0.6 mmol/L Normal 0.5-2.2 [facility] Comment on above: Order Comment: Specimen Type : ARTERIAL BLOOD SPECIMENOrdering Facility: [facility] Address: [address] [address] Performed By: #### ALLBG ### #[facility]ORATORYCLIA [id number] [facility], [address] [place] Methemoglobin (Bld) [Mass fraction] 1.1 % Normal 0.0-1 .5 [facility] Comment on above: Order Comment: Specimen Type : ARTERIAL BLOOD SPECIMENOrdering Facility: [facility] Address: [address] [address] Performed By: #### ALLBG ### #[facility]ORATORYCLIA [id number] [facility], [facility] [place] O2 THERAPY Ventilator Normal [facility] Comment on above: Order Comment: Specimen Type : ARTERIAL BLOOD SPECIMENOrdering Facility: [facility] Address: [address] [address] Performed By: #### ALLBG ### #[facility]ORATORYCLIA [id number] [facility] [place], [address] [place] Oxygen (Bld) [Partial pressure] 136 mm Hg High 85-95 [facility] Comment on above: Order Comment: Specimen Type : ARTERIAL BLOOD SPECIMENOrdering Facility: [facility] Address: [address] [address] Performed By: #### ALLBG ### #[facility]ORATORYCLIA [id number] [place] [address] [facility] [place] Oxygen adjusted to patient's actual 137 mmHg High 85-95 [facility] temperature (Bld) [Partial pressure] Comment on above: Order Comment: Specimen Type : ARTERIAL BLOOD SPECIMENOrdering Facility: [facility] Address: [address] [place] [address] Performed By: #### ALLBG ### #[facility]ORATORYCLIA [id number] [place] [address] [facility] Oxyhemoglobin (BldA) [Mass fraction] 95 % Normal 95-9 8 [facility] Comment on above: Order Comment: Specimen Type : ARTERIAL BLOOD SPECIMENOrdering Facility: [facility] Address: [address] [place] [address] Performed By: #### ALLBG ### #[facility]ORATORYCLIA [id number] [facility] [place], [facility] [place] pH (Bld) 7.32 [pH] Low 7.35-7.45 [facility] Comment on above: Order Comment: Specimen Type : ARTERIAL BLOOD SPECIMENOrdering Facility: [facility] Address: [address] [place] [address] Performed By: #### ALLBG ### #[facility]ORATORYCLIA [id number] [place] [address] [facility] [place] pH adjusted to patient's actual 7.32 Low 7.35-7.45 [facility] temperature (Bld) Comment on above: Order Comment: Specimen Type : ARTERIAL BLOOD SPECIMENOrdering Facility: [facility] Address: [address] [place] [address] Performed By: #### ALLBG ### #[facility]ORATORYCLIA [id number] [place] [address] [facility] [place] Potassium [Moles/Vol] 4.3 mmol/L Normal 3.5-5.0 [facility] Comment on above: Order Comment: Specimen Type : ARTERIAL BLOOD SPECIMENOrdering Facility: [facility] Address: [address] [address] Performed By: #### ALLBG ### #[facility]ORATORYCLIA [id number] [facility] [address] [place] Sodium [Moles/Vol] 135 mmol/L Low 136-144 [facility] Comment on above: Order Comment: Specimen Type : ARTERIAL BLOOD SPECIMENOrdering Facility: [facility] Address: [address] [address] Performed By: #### ALLBG ### #[facility]ORATORYCLIA [id number] [place] [address] [place] Base deficit (BldA) [Moles/Vol] -1 mmol/L Normal -2-0 [facility] Comment on above: Order Comment: Specimen Type : ARTERIAL BLOOD SPECIMENOrdering Facility: [facility] Address: [address] [address] Performed By: #### ALLBG ### #[facility]ORATORYCLIA [id number] [address] [place] Body temperature 97.52 [degF] Normal [facility] Comment on above: Order Comment: Specimen Type : ARTERIAL BLOOD SPECIMENOrdering Facility: [facility] Address: [address] [address] Performed By: #### ALLBG ### #[facility]ORATORYCLIA [id number] [facility], [address] [place] Calcium.ionized (BldV) 1.18 mmol/L Normal 1.08-1.30 [facility] [Mass/Vol] [place] Comment on above: Order Comment: Specimen Type : ARTERIAL BLOOD SPECIMENOrdering Facility: [facility] Address: [address] [address] Performed By: #### ALLBG ### #[facility]ORATORYCLIA [id number] [address] [place] Calcium.ionized adjusted to pH 1.08 mmol/L Normal 1.08-1.30 [facility] 7.4 (BldA) [Moles/Vol] Genoveva burciaga Comment on above: Order Comment: Specimen Type : ARTERIAL BLOOD SPECIMENOrdering Facility: [facility] Address: [address] [address] Performed By: #### ALLBG ### #[facility] LABORATORYCLIA [id number] [address] OF [facility] Carboxyhemoglobin (BldA) [Mass 3.0 % High 0.0-2.0 [facility] fraction] Comment on above: Order Comment: Specimen Type : ARTERIAL BLOOD SPECIMENOrdering Facility: [facility] Address: [address] [place] [address] Result Comment: Carboxyhemog lobin Reference Range for Smokers: 2.0-8.0% Performed By: #### ALLBG ### #[facility]ilaHaatRON [facility] LABORATORYCLIA [id number] [address] STATES OF [facility] Chloride [Moles/Vol] 104 mmol/L Normal 102-109 [facility] Comment on above: Order Comment: Specimen Type : ARTERIAL BLOOD SPECIMENOrdering Facility: [facility] Address: [address] [place] [address] Performed By: #### ALLBG ### #[facility]MithilaHaatVON [facility] GENERAL LABORATORYCLIA [id number] [address] [place] CO2 (Bld) [Partial pressure] 63 mm Hg High 36-46 [facility] Comment on above: Order Comment: Specimen Type : ARTERIAL BLOOD SPECIMENOrdering Facility: [facility] Address: [address] [address] Performed By: #### ALLBG ### #[facility]ORATORYCLIA [id number] [address] OF [facility] CO2 [Moles/Vol] 25 mmol/L Normal 22-28 [facility] Comment on above: Order Comment: Specimen Type : ARTERIAL BLOOD SPECIMENOrdering Facility: [facility] Address: [address] [address] Performed By: #### ALLBG ### #[facility]ORATORYCLIA [id number] [facility] [address] CO2 adjusted to patient's actual 61 mmHg High 36-46 [facility] temperature (Bld) [Partial pressure] Comment on above: Order Comment: Specimen Type : ARTERIAL BLOOD SPECIMENOrdering Facility: [facility] Address: [address] [address] Performed By: #### ALLBG ### #[facility]ORATORYCLIA [id number] [facility] [address] [place] FIO2 80 % Normal [facility] Comment on above: Order Comment: Specimen Type : ARTERIAL BLOOD SPECIMENOrdering Facility: [facility] Address: [address] [address] Performed By: #### ALLBG ### #[facility]ORATORYCLIA [id number] [facility] [address] [place] Glucose [Mass/Vol] 162 mg/dL High 60-105 [facility] Comment on above: Order Comment: Specimen Type : ARTERIAL BLOOD SPECIMENOrdering Facility: [facility] Address: [address] [address] Performed By: #### ALLBG ### #[facility]ORATORYCLIA [id number] [facility] [address] HCO3 (Bld) [Moles/Vol] 26 mmol/L Normal 22-26 [facility] Comment on above: Order Comment: Specimen Type : ARTERIAL BLOOD SPECIMENOrdering Facility: [facility] Address: [address] [address] Performed By: #### ALLBG ### #[facility]ORATORYCLIA [id number] [address] [place] Hematocrit (Bld) [Volume fraction] 29.1 % Low 36.0-4 6.0 [facility] Comment on above: Order Comment: Specimen Type : ARTERIAL BLOOD SPECIMENOrdering Facility: [facility] Address: [address] [address] Performed By: #### ALLBG ### #[facility]ORATORYCLIA [id number] [facility] [place], [facility] [place] Hemoglobin (Bld) [Mass/Vol] 9.4 g/dL Low 11.5-15.5 [facility] Comment on above: Order Comment: Specimen Type : ARTERIAL BLOOD SPECIMENOrdering Facility: [facility] Address: [address] [address] Performed By: #### ALLBG ### #[facility]ORATORYCLIA [id number] [facility] [place], [address] [place] Lactate [Moles/Vol] 0.5 mmol/L Normal 0.5-2.2 [facility] Comment on above: Order Comment: Specimen Type : ARTERIAL BLOOD SPECIMENOrdering Facility: [facility] Address: [address] [address] Performed By: #### ALLBG ### #[facility]ORATORYCLIA [id number] [facility] [place], [address] [place] Methemoglobin (Bld) [Mass fraction] 1.1 % Normal 0.0-1 .5 [facility] Comment on above: Order Comment: Specimen Type : ARTERIAL BLOOD SPECIMENOrdering Facility: [facility] Address: [address] [address] Performed By: #### ALLBG ### #[facility]ORATORYCLIA [id number] [place] [address] [place] O2 THERAPY Ventilator Normal [facility] Comment on above: Order Comment: Specimen Type : ARTERIAL BLOOD SPECIMENOrdering Facility: [facility] Address: [address] [address] Performed By: #### ALLBG ### #[facility]ORATORYCLIA [id number] [place] [address] [facility] [place] Oxygen (Bld) [Partial pressure] 91 mm Hg Normal 85-95 [facility] Comment on above: Order Comment: Specimen Type : ARTERIAL BLOOD SPECIMENOrdering Facility: [facility] Address: [address] [address] Performed By: #### ALLBG ### #[facility]ORATORYCLIA [id number] [place] [address] [facility] [place] Oxygen adjusted to patient's actual 88 mmHg Normal 85-95 [facility] temperature (Bld) [Partial pressure] Comment on above: Order Comment: Specimen Type : ARTERIAL BLOOD SPECIMENOrdering Facility: [facility] Address: [address] [address] Performed By: #### ALLBG ### #[facility]ORATORYCLIA [id number] [place] [address] [facility] [place] Oxyhemoglobin (BldA) [Mass fraction] 92 % Low 95-9 8 [facility] Comment on above: Order Comment: Specimen Type : ARTERIAL BLOOD SPECIMENOrdering Facility: [facility] Address: [address] [address] Performed By: #### ALLBG ### #[facility]ORATORYCLIA [id number] [facility] [place], [facility] [place] PEEP/CPAP 10 cmH2O Normal [facility] Comment on above: Order Comment: Specimen Type : ARTERIAL BLOOD SPECIMENOrdering Facility: [facility] Address: [address] [address] Performed By: #### ALLBG ### #[facility]ORATORYCLIA [id number] [place] [address] [place] pH (Bld) 7.24 [pH] Low 7.35-7.45 [facility] Comment on above: Order Comment: Specimen Type : ARTERIAL BLOOD SPECIMENOrdering Facility: [facility] Address: [address] [address] Performed By: #### ALLBG ### #[facility]ORATORYCLIA [id number] [facility] [place], [address] pH adjusted to patient's actual 7.25 Low 7.35-7.45 [facility] temperature (Bld) Comment on above: Order Comment: Specimen Type : ARTERIAL BLOOD SPECIMENOrdering Facility: [facility] Address: [address] [place] [address] Performed By: #### ALLBG ### #[facility]ORATORYCLIA [id number] [facility], [address] Potassium [Moles/Vol] 4.9 mmol/L Normal 3.5-5.0 [facility] Comment on above: Order Comment: Specimen Type : ARTERIAL BLOOD SPECIMENOrdering Facility: [facility] Address: [address] [place] [address] Performed By: #### ALLBG ### #[facility]ORATORYCLIA [id number] [facility], [address] SET VENTILATOR RESPIRATORY RATE (BPM) 16 BPM Normal [facility] Comment on above: Order Comment: Specimen Type : ARTERIAL BLOOD SPECIMENOrdering Facility: [facility] Address: [address] [address] Performed By: #### ALLBG ### #[facility]ORATORYCLIA [id number] [facility], [address] [place] Sodium [Moles/Vol] 134 mmol/L Low 136-144 [facility] Comment on above: Order Comment: Specimen Type : ARTERIAL BLOOD SPECIMENOrdering Facility: [facility] Address: [address] [address] Performed By: #### ALLBG ### #[facility]ORATORYCLIA [id number] [facility], [address] Bacteria Bld Cult on 12-25-2022 Bacteria identified Cx Nom CULTURE, BLOOD: Normal [facility] (Bld) No growth 5 days Center Comment on above: Performed By: #### 600-7 ### #[facility]ORATORYCLIA [id number] [address] OF [facility] Bacteria identified Cx Nom CULTURE, BLOOD: Normal [facility] (Bld) No growth 5 days Center Comment on above: Performed By: #### 600-7 ### #[facility] LABORATORYCLIA [id number] [address] OF [facility] Bacteria Spec Anaerobe Cult on 12-25-19 23 Bacteria identified Anaer CULTURE, ANAEROBE: Normal [facility] cx Nom (Unsp spec) Moderate mixed anaerobic yolanda ra. No Bacteroides fragilis group isolated. No Clostridium perfringens isolated. Center Comment on above: Performed By: #### 69902-6, 69924-9, 635-3 ####[facility] LABORATORYCLIA [id number] [address] [place] Bacteria Tiss Cult on 12-25-2022 Bacteria identified Cx ORGANISM ID: 1 Abnormal Akr on General Nom (Tiss) Few Streptococcus anginosus [facility] ORGANISM ID: 2 Rare skin nando GRAM STAIN: Few Gram positive cocci Rare Gram negative bacilli No Polymorphonuclear Leukocytes Comment on above: Performed By: #### 83691-0, 02834-4, 635-3 ####[facility] LABORATORYCLIA [id number] [address] [place] Basic metabolic 2000 panel on 3 Anion gap [Moles/Vol] 11 mmol/L Normal 9-18 [facility] Comment on above: Order Comment: Specimen Type : BLOOD SPECIMENOrdering Facility: [facility] Address: [address] [address] Performed By: #### 34125-7 # ###[facility] LABORATORYCLIA [id number] [address] STATES OF [facility] Calcium [Mass/Vol] 8.3 mg/dL Low 8.5-10.2 [facility] Comment on above: Order Comment: Specimen Type : BLOOD SPECIMENOrdering Facility: [facility] Address: [address] [address] Performed By: #### 11908-8 # ###[facility] LABORATORYCLIA [id number] [facility], [address] [place] Chloride [Moles/Vol] 100 mmol/L Normal 97-105 [facility] Comment on above: Order Comment: Specimen Type : BLOOD SPECIMENOrdering Facility: [facility] Address: [address] [address] Performed By: #### 39633-8 # ###[facility] LABORATORYIA [id number] [address] STATES [place] CO2 [Moles/Vol] 26 mmol/L Normal 22-30 [facility] Comment on above: Order Comment: Specimen Type : BLOOD SPECIMENOrdering Facility: [facility] Address: [address] [address] Performed By: #### 82859-5 # ###[facility] MEDICAL CENTERIA [id number] [address] [place] Creatinine [Mass/Vol] 1.69 mg/dL High 0.58-0.96 [facility] Comment on above: Order Comment: Specimen Type : BLOOD SPECIMENOrdering Facility: [facility] Address: [address] [place] [address] Performed By: #### 48415-0 # ###[facility] LABORATORYIA [id number] [address] OF [place] ESTIMATED GLOMERULAR 38 mL/min/1.73m??? Low >=[address] [facility] FILTRATION RATE Center Comment on above: Order Comment: Specimen Type : BLOOD SPECIMENOrdering Facility: [facility] Address: [address] [address] Result Comment: Estimated Gl omerular Filtration Rate [...] accurately reflect actual GFR. Performed By: #### 09885-8 # ###[facility] LABORATORYCLIA [id number] [place] [address] [place] Glucose [Mass/Vol] 123 mg/dL High 74-99 [facility] Comment on above: Order Comment: Specimen Type : BLOOD SPECIMENOrdering Facility: [facility] Address: [address] [address] Result Comment: The English Diabetes Association (ADA) provides guidance for cutoff [...] Standards of Medical Care in Diabetes 2016, [facility] Diabetes Association. Diabetes Care. 2016.39(Suppl 1). Performed By: #### 46785-3 # ###[facility] LABORATORYCLIA [id number] [place] [address] [place] Potassium [Moles/Vol] 5.1 mmol/L Normal 3.7-5.1 [facility] Comment on above: Order Comment: Specimen Type : BLOOD SPECIMENOrdering Facility: [facility] Address: [address] [address] Performed By: #### 35217-6 # ###[facility] LABORATORYCLIA [id number] [place] [address] [place] Sodium [Moles/Vol] 137 mmol/L Normal 136-144 [facility] Comment on above: Order Comment: Specimen Type : BLOOD SPECIMENOrdering Facility: [facility] Address: [address] [address] Performed By: #### 06969-1 # ###[facility] LABORATORYCLIA [id number] [place] [address] [place] Urea nitrogen [Mass/Vol] 30 mg/dL High 7-21 [facility] Comment on above: Order Comment: Specimen Type : BLOOD SPECIMENOrdering Facility: [facility] Address: [address] [place] [address] Performed By: #### 01083-9 # ###[facility]ORATORYCLIA [id number] [place] [address] [place] Anion gap [Moles/Vol] 10 mmol/L Normal 9-18 [facility] Comment on above: Order Comment: Specimen Type : BLOOD SPECIMENOrdering Facility: [facility] Address: [address] [address] Performed By: #### 21168-9 # ###[facility]ORATORYCLIA [id number] [place] [address] [place] Calcium [Mass/Vol] 8.6 mg/dL Normal 8.5-10.2 [facility] Comment on above: Order Comment: Specimen Type : BLOOD SPECIMENOrdering Facility: [facility] Address: [address] [address] Performed By: #### 93016-9 # ###[facility]ORATORYCLIA [id number] [place] [address] [place] Chloride [Moles/Vol] 101 mmol/L Normal 97-105 [facility] Comment on above: Order Comment: Specimen Type : BLOOD SPECIMENOrdering Facility: [facility] Address: [address] [address] Performed By: #### 77487-1 # ###[facility]ORATORYCLIA [id number] [place] [address] [place] CO2 [Moles/Vol] 26 mmol/L Normal 22-30 [facility] Comment on above: Order Comment: Specimen Type : BLOOD SPECIMENOrdering Facility: [facility] Address: [address] [address] Performed By: #### 07263-1 # ###[facility]ORATORYCLIA [id number] [address] [id number] [place] Creatinine [Mass/Vol] 1.52 mg/dL High 0.58-0.96 [facility] Comment on above: Order Comment: Specimen Type : BLOOD SPECIMENOrdering Facility: [facility] Address: [address] [address] Performed By: #### 27353-8 # ###[facility] MEDICAL CENTERIA [id number] [address] [id number] [place] ESTIMATED GLOMERULAR 43 mL/min/1.73m??? Low >=[address] [facility] FILTRATION RATE Center Comment on above: Order Comment: Specimen Type : BLOOD SPECIMENOrdering Facility: [facility] Address: [address] [place] [address] Result Comment: Estimated Gl omerular Filtration Rate [...] accurately reflect actual GFR. Performed By: #### 97077-6 # ###[facility] [id number] [address] [id number] [place] Glucose [Mass/Vol] 92 mg/dL Normal 74-99 [facility] Comment on above: Order Comment: Specimen Type : BLOOD SPECIMENOrdering Facility: [facility] Address: [address] [place] [address] Result Comment: The [place] Diabetes Association (ADA) provides guidance for cutoff [...] Standards of Medical Care in Diabetes 2016, [facility] Diabetes Association. Diabetes Care. 2016.39(Suppl 1). Performed By: #### 03538-2 # ###[facility]ORATORYCLIA [id number] [address] STATES OF [facility] Potassium [Moles/Vol] 4.9 mmol/L Normal 3.7-5.1 [facility] Comment on above: Order Comment: Specimen Type : BLOOD SPECIMENOrdering Facility: [facility] Address: [address] [address] Performed By: #### 26850-0 # ###[facility] HOSPITALCLIA [id number] [address] STATES OF [facility] Sodium [Moles/Vol] 137 mmol/L Normal 136-144 [facility] Comment on above: Order Comment: Specimen Type : BLOOD SPECIMENOrdering Facility: [facility] Address: [address] [address] Performed By: #### 91940-0 # ###[facility] HOSPITALCLIA [id number] [address] [place] Urea nitrogen [Mass/Vol] 29 mg/dL High 7-21 [facility] Comment on above: Order Comment: Specimen Type : BLOOD SPECIMENOrdering Facility: [facility] Address: [address] [address] Performed By: #### 15072-3 # ###[facility]ORATORYCLIA [id number] [address] [place] CBC panel Auto (Bld) on 12-25-2022 Erythrocyte distribution width 16.6 % High 11.5-15.0 [facility] (RBC) [Ratio] Comment on above: Order Comment: Specimen Type : BLOOD SPECIMENOrdering Facility: [facility] Address: [address] [address] Performed By: #### 97798-8 # ###[facility]ORATORYCLIA [id number] [facility], [address] [place] Hematocrit (Bld) [Volume fraction] 32.5 % Low 36.0-4 6.0 [facility] Comment on above: Order Comment: Specimen Type : BLOOD SPECIMENOrdering Facility: [facility] Address: [address] [place] [address] Performed By: #### 94765-1 # ###[facility]ORATORYCLIA [id number] [facility], [address] OF [facility] Hemoglobin (Bld) [Mass/Vol] 9.7 g/dL Low 11.5-15.5 [facility] Comment on above: Order Comment: Specimen Type : BLOOD SPECIMENOrdering Facility: [facility] Address: [address] [place] [address] Performed By: #### 61749-9 # ###[facility] LABORATORYCLIA [id number] [address] [place] MCH (RBC) [Entitic mass] 29.2 pg Normal 26.0-34.0 [facility] Comment on above: Order Comment: Specimen Type : BLOOD SPECIMENOrdering Facility: [facility] Address: [address] [place] [address] Performed By: #### 15922-5 # ###[facility]ORATORYCLIA [id number] [address] [place] MCHC (RBC) [Mass/Vol] 29.8 g/dL Low 30.5-36.0 [facility] Comment on above: Order Comment: Specimen Type : BLOOD SPECIMENOrdering Facility: [facility] Address: [address] [place] [address] Performed By: #### 66055-4 # ###[facility]ORATORYCLIA [id number] [address] [place] MCV (RBC) [Entitic vol] 97.9 fL Normal 80.0-100.0 [facility] Comment on above: Order Comment: Specimen Type : BLOOD SPECIMENOrdering Facility: [facility] Address: [address] [address] Performed By: #### 58685-7 # ###[facility]ORATORYCLIA [id number] [facility] [place] [address] [place] Nucleated RBC (Bld) [#/Vol] 0.03 10*3/uL High <0.01 [facility] Comment on above: Order Comment: Specimen Type : BLOOD SPECIMENOrdering Facility: [facility] Address: [address] [address] Performed By: #### 25149-2 # ###[facility] LABORATORYCLIA [id number] [facility] [place], [facility] Platelet mean volume (Bld) 9.5 fL Normal 9.0-12.7 [facility] [Entitic vol] Comment on above: Order Comment: Specimen Type : BLOOD SPECIMENOrdering Facility: [facility] Address: [address] [address] Performed By: #### 84058-9 # ###[facility] LABORATORYCLIA [id number] [facility] [place], [place] [id number] [place] [address] [place] Platelets (Bld) [#/Vol] 323 10*3/uL Normal 150-400 [facility] Comment on above: Order Comment: Specimen Type : BLOOD SPECIMENOrdering Facility: [facility] Address: [address] Performed By: #### 95747-2 # ###[facility]ORATORYCLIA [id number] [facility] [place] [address] [place] [address] [place] RBC (Bld) [#/Vol] 3.32 10*6/uL Low 3.90-5.20 [facility] Comment on above: Order Comment: Specimen Type : BLOOD SPECIMENOrdering Facility: [facility] Address: [address] Performed By: #### 55551-1 # ###[facility]ORATORYCLIA [id number] [facility] [address] [place] WBC (Bld) [#/Vol] 19.06 10*3/uL High 3.70-11.00 [facility] Comment on above: Order Comment: Specimen Type : BLOOD SPECIMENOrdering Facility: [facility] Address: [address] [place] [address] Performed By: #### 30944-1 # ###[facility] LABORATORYCLIA [id number] [address] OF [facility] Erythrocyte distribution width 16.5 % High 11.5-15.0 [facility] (RBC) [Ratio] Comment on above: Order Comment: Specimen Type : BLOOD SPECIMENOrdering Facility: [facility] Address: [address] [place] [address] Performed By: #### 81869-4 # ###[facility] LABORATORYCLIA [id number] [address] Hematocrit (Bld) [Volume fraction] 32.4 % Low 36.0-4 6.0 [facility] Comment on above: Order Comment: Specimen Type : BLOOD SPECIMENOrdering Facility: [facility] Address: [address] [place] [address] Performed By: #### 80313-3 # ###[facility] LABORATORYCLIA [id number] [address] OF [facility] Hemoglobin (Bld) [Mass/Vol] 9.4 g/dL Low 11.5-15.5 [facility] Comment on above: Order Comment: Specimen Type : BLOOD SPECIMENOrdering Facility: [facility] Address: [address] [place] [address] Performed By: #### 90304-5 # ###[facility] LABORATORYCLIA [id number] [address] MCH (RBC) [Entitic mass] 28.2 pg Normal 26.0-34.0 [facility] Comment on above: Order Comment: Specimen Type : BLOOD SPECIMENOrdering Facility: [facility] Address: [address] [address] Performed By: #### 13327-8 # ###[facility] LABORATORYCLIA [id number] [facility] MCHC (RBC) [Mass/Vol] 29.0 g/dL Low 30.5-36.0 [facility] Comment on above: Order Comment: Specimen Type : BLOOD SPECIMENOrdering Facility: [facility] Address: [address] [address] Performed By: #### 29389-7 # ###[facility] LABORATORYCLIA [id number] [facility] MCV (RBC) [Entitic vol] 97.3 fL Normal 80.0-100.0 [facility] Comment on above: Order Comment: Specimen Type : BLOOD SPECIMENOrdering Facility: [facility] Address: [address] [address] Performed By: #### 49412-7 # ###[facility] LABORATORYCLIA [id number] [address] Nucleated RBC (Bld) [#/Vol] 10*3/uL Normal <0.01 [facility] Comment on above: Order Comment: Specimen Type : BLOOD SPECIMENOrdering Facility: [facility] Address: [address] [address] Performed By: #### 04825-1 # ###[facility]ORATORYCLIA [id number] [facility], [address] Platelet mean volume (Bld) 9.7 fL Normal 9.0-12.7 [facility] [Entitic vol] Comment on above: Order Comment: Specimen Type : BLOOD SPECIMENOrdering Facility: [facility] Address: [address] [address] Performed By: #### 13627-4 # ###[facility]ORATORYCLIA [id number] [facility] [place], [address] Platelets (Bld) [#/Vol] 308 10*3/uL Normal 150-400 [facility] Comment on above: Order Comment: Specimen Type : BLOOD SPECIMENOrdering Facility: [facility] Address: [address] [place] [address] Performed By: #### 81238-5 # ###[facility] LABORATORYCLIA [id number] [facility] [place] [address] [place] RBC (Bld) [#/Vol] 3.33 10*6/uL Low 3.90-5.20 [facility] Comment on above: Order Comment: Specimen Type : BLOOD SPECIMENOrdering Facility: [facility] Address: [address] [place] [address] Performed By: #### 22512-1 # ###[facility]ORATORYCLIA [id number] [facility] [place] [address] [place] WBC (Bld) [#/Vol] 17.43 10*3/uL High 3.70-11.00 [facility] Comment on above: Order Comment: Specimen Type : BLOOD SPECIMENOrdering Facility: [facility] CENTER Address: [address] [place] [address] Performed By: #### 72838-2 # ###[facility] LABORATORYCLIA [id number] [facility] [place] [address] [facility] CNCRITCR on 12-25-2022 CNCRITCR [address] [facility] CONSULT PROG on 12-25-2022 CONSULT PROG [facility] CON[facility] Normal [facility] CONSULT PROG Normal [facility] ECG COMPLETE on 12-25-2022 ECG COMPLETE Normal [facility] ED NOTE on 12-25-2022 ED NOTE HNO ID: [id number] [facility] Author: Claire Sanchez RN Service: Emergency Medicine Author Type: Registered Nurse Type: ED Notes Filed: 12/25/2022 3:16 AM Note Text: Depart to OR ED NOTE HNO ID: [id number] Normal [facility] Author: Claire Sanchez RN Service: Emergency Medicine Author Type: Registered Nurse Type: ED Notes Filed: 12/25/2022 2:39 AM Note Text: Dr. Reyes at bedside to evaluate pt ED NOTE HNO ID: [id number] [facility] Author: Claire Sanchez RN Service: Emergency Medicine Author Type: Registered Nurse Type: ED Notes Filed: 12/25/2022 2:29 AM Note Text: EKG performed at bedside ED NOTE HNO ID: [id number] [facility] Author: Claire Sanchez RN Service: Emergency Medicine Author Type: Registered Nurse Type: ED Notes Filed: 12/25/2022 2:28 AM Note Text: ED NOTE HNO ID: [id number] [facility] Author: Claire Sanchez RN Service: Emergency Medicine Author Type: Registered Nurse Type: ED Notes Filed: 12/25/2022 2:29 AM Note Text: Surgery at bedside ED NOTE Normal [facility] ED NOTE HNO ID: [id number] [facility] Author: Claire Sanchez RN Service: Emergency Medicine Author Type: Registered Nurse Type: ED Notes Filed: 12/25/2022 1:56 AM Note Text: Dr. Saleh at bedside to evaluate pt ED NOTE HNO ID: [id number] [facility] Author: Sirena Redman RN Service: ? Author Type: Registered Nurse Type: ED Notes Filed: 12/25/2022 1:44 AM Note Text: Bed: 01-ED Expected date: Expected time: Means of arrival: Comments: Inguinal issue ED PROV NOTE on 12-25-2022 ED PROV NOTE Normal [facility] FLUABV+SARS-CoV-2+RSV Pnl Resp SURESH+probe on 12-25-2022 FLUABV+SARS-CoV-2+RSV Pnl Resp SURESH+probe Normal [facility] Comment on above: Performed By: #### 87226-2 # ###[facility] LABORATORYCLIA [id number] [place] [address] [facility] HIGH SENSITIVITY TROPONIN T on 12-25-19 23 HIGH SENSITIVITY CATERINA 23 ng/L High <12 [facility] Comment on above: Order Comment: Specimen Type : BLOOD SPECIMENOrdering Facility: [facility] Address: [address] [place] [address] Result Comment: When assessi ng risk for [...] MAC E. Performed By: #### HSTNT ### #[facility] LABORATORYCLIA [id number] [address] HIGH SENSITIVITY CATERINA 34 ng/L High <12 [facility] Comment on above: Order Comment: Specimen Type : BLOOD SPECIMENOrdering Facility: [facility] Address: [address] [place] [address] Result Comment: When assessi ng risk for [...] MAC E. Performed By: #### HSTNT ### #[facility] LABORATORYCLIA [id number] [address] HISTORY PHYSICAL on 12-25-2022 HISTORY PHYSICAL Normal [facility] Lactate (Bld) [Moles/Vol] on 12-25-2022 Lactate [Moles/Vol] 0.8 mmol/L Normal 0.5-2.2 [facility] Comment on above: Order Comment: Specimen Type : BLOOD SPECIMENOrdering Facility: [facility] Address: [address] [place] [address] Performed By: #### 15076-8 # ###[facility] LABORATORYCLIA [id number] [address] Microorganism Spec Cult on 12-25-2022 Microorganism identified Cx CULTURE, FUNGAL: Normal [facility] (Unsp spec) No Fungus isolated after 28 days Center FUNGAL SMEAR: No fungus seen Comment on above: Performed By: #### 86900-1, 16721-2, 635-3 ####[facility] LABORATORYCLIA [id number] [place] [address] [facility] Microorganism identified Cx CULTURE, AFB: Normal [facility] (Unsp spec) No Acid Fast Bacilli isolated after 42 days Center AFB STAIN: No acid fast bacilli seen by flurochrome stain Comment on above: Performed By: #### 97445-4, 77304-8, 635-3 ####[facility] LABORATORYCLIA [id number] [place] [address] [facility] NUTRITION on 12-25-2022 NUTRITION Normal [facility] OPERATIVE NO on 12-25-2022 OPERATIVE NO Normal [facility] PT panel Coag (PPP) on 12-25-2022 INR Coag (PPP) [Relative time] 1.1 {INR} Normal 0.9-1.3 [facility] Comment on above: Order Comment: Specimen Type : BLOOD SPECIMENOrdering Facility: [facility] Address: [address] [place] [phone] Result Comment: Vitamin K An tagonist (VKA) [...] al. Chest 2012, 141:7S-47SNishimdarlene RA, et al. [facility] 2017, 70: 25 2-289 Performed By: #### 17478-5 # ###[facility] LABORATORYCLIA [id number] [address] [place] PT Coag (PPP) [Time] 11.6 s Normal 9.7-13.0 [facility] Comment on above: Order Comment: Specimen Type : BLOOD SPECIMENOrdering Facility: [facility] Address: [address] [place] [address] Performed By: #### 10128-0 # ###[facility] LABORATORYIA [id number] [address] STAPH AUREUS PCR on 12-25-2022 S. aureus and MRSA panel SURESH+probe Abnormal Negati ve [facility] (Nose) Comment on above: Order Comment: Specimen Type : SWAB OF INTERNAL NOSEOrdering Facility: [facility] Address: [address] [place] [address] Result Comment: Positive for Staphylococcus aureus by PCR.Positive for MRSA by PCR Performed By: #### SAPCR ### #[facility] CENTERIA [id number] [address] SURGICAL PATHOLOGY on 12-25-2022 CASE REPORT Normal [facility] Comment on above: Order Comment: Specimen Type : TISSUE SPECIMENOrdering Facility: [facility] Address: [address] [place] [address] Result Comment: Surgical Pat hology Report Case: [id number] Provi mame: Hubert Leblanc MD Collected: 12/25/2022 04:15 AMOrdering Location: [place] [facility] Received: 12/25/2022 08:[address]: Eran Melgar, DOSpecimen: DEBRIDEMENT, LEFT GROIN WOUN D Performed By: #### S ####[facility] LABORATORYCLIA [id number] [facility], [address] CLINICAL HISTORY Normal [facility] Comment on above: Order Comment: Specimen Type : TISSUE SPECIMENOrdering Facility: [facility] Address: [address] [place] [address] Result Comment: Pre-op diagn osis:Necrotizing soft tissue infection [M79.89] Performed By: #### S ####[facility]ORATORYCLIA [id number] [address] DIAGNOSIS COMMENT Correlation with microbiologic Normal [facility] studies is necessary. Center Comment on above: Order Comment: Specimen Type : TISSUE SPECIMENOrdering Facility: [facility] Address: [address] [place] [address] Performed By: #### S ####[facility]ORATORYCLIA [id number] [address] FINAL DIAGNOSIS Normal [facility] Comment on above: Order Comment: Specimen Type : TISSUE SPECIMENOrdering Facility: [facility] Address: [address] [place] [address] Result Comment: A. Left groi n wound, debridement:- Skin and soft tissue with suppurative acut e inflammation and focal gangrenous necrosis. See comment.Electr onically signed by Eran Melgar DO on 12/30/2022 at 9:18 AM Performed By: #### S ####[facility]ORATORYCLIA [id number] [address] FINAL PERFORMING LAB Normal [facility] Comment on above: Order Comment: Specimen Type : TISSUE SPECIMENOrdering Facility: [facility] Address: [address] [place] [address] Result Comment: Diagnostic i nterpretation performed at [facility], [address] [place] [address] CLIA# [id number] oratory Director: Faraz Sawant M.D. Performed By: #### S ####[facility]ORATORYCLIA [id number] [address] GROSS DESCRIPTION A. DEBRIDEMENT Normal [facility] Comment on above: Order Comment: Specimen Type : TISSUE SPECIMENOrdering Facility: [facility] Address: [address] [place] [address] Result Comment: A. Received in formalin labeled left groin wound are multiple brennan-pink to brennan -green rubbery and ischemic appearing segments of tissue aggregati ng to 15.0 x 7.8 x 3.5 cm. Multiple segments of skin are present and display a xwx-zffw-gds to pink-green ischemic appearan ce. Librarian Helper sections are submitted in formalin in 3 c assettes. Gross examination performed at [facility], [address] [place], [place] [address]ZED J anuary 2022 11:27 AM Performed By: #### S ####AKR [facility] LABORATORYCLIA [id number] [facility] [address] [facility] TYPE + SCREEN on 12-25-2022 ABO O Normal [facility] Comment on above: Order Comment: Specimen Type : BLOOD SPECIMENOrdering Facility: [facility] Address: [address] [place] [address] Performed By: #### TSCR #### [facility] BLOOD BANKCLIA [id number] [address] HISTORICAL AB SCR STATUS Negative Normal [facility] Comment on above: Order Comment: Specimen Type : BLOOD SPECIMENOrdering Facility: [facility] Address: [address] [place] [address] Performed By: #### TSCR #### [facility] BLOOD BANKCLIA [id number] [address] Rh Nom (Bld) Negative Normal [facility] Comment on above: Order Comment: Specimen Type : BLOOD SPECIMENOrdering Facility: [facility] Address: [address] [place] [address] Performed By: #### TSCR #### [facility] BLOOD BANKCLIA [id number] [place] [id number] [facility] TYPE AND SCREEN EXPIRATION 12/28/2022 23:59 Normal [facility] Comment on above: Order Comment: Specimen Type : BLOOD SPECIMENOrdering Facility: [facility] Address: [address] [place] [place] [address] Performed By: #### TSCR #### [facility] BLOOD BANKCLIA [id number] [place] [address] [place] XR CHEST 1V FRONTAL on 12-25-2022 XR CHEST 1V FRONTAL Normal [facility] XR CHEST 1V FRONTAL Normal [facility] CNPN on 12-24-2022 CNPN Normal [facility] CNPN on 12-20-2022 CNPN Normal [facility] CNPN on 12-12-2022 CNPN Normal [facility] CNPN on 12-05-2022 CNPN Normal [facility] 25(OH)D3 SerPl-mCnc on 11-11-2022 25-hydroxyvitamin D3 [Mass/Vol] 33.1 ng/mL Normal 31.0-80.0 [facility] Comment on above: Order Comment: Specimen Type : BLOOD SPECIMENOrdering Facility: [facility] Address: [address] [place] [phone] Result Comment: Classificati on of 25 [place] Vitamin D status:Deficiency/Insufficie ncy: < or = 30 ng/ml.Sufficiency/Optimal Le vels: 31-80 ng/mLToxicity: > 100 ng/mL.Test performed by chem iluminescent immunoassay. Performed By: #### 1989-3 ## ##[facility] LABCLIA [id number] [facility] [place] [id number] [place] CNPN on 11-11-2022 CNPN Normal [facility] metabolic 2000 panel on 01-12-2022 Albumin [Mass/Vol] 3.7 g/dL Low 3.9-4.9 [facility] Comment on above: Order Comment: Specimen Type : BLOOD SPECIMENOrdering Facility: [facility] Address: [address] [place] [address] Performed By: #### 30184-7 # ###[facility] CENTERNCLIA [id number] [address] [place] [address] [place] ALP [Catalytic activity/Vol] 69 U/L Normal 34-123 [facility] Comment on above: Order Comment: Specimen Type : BLOOD SPECIMENOrdering Facility: [facility] Address: [address] [place] [address] Performed By: #### 23106-6 # ###[facility] RONAL MILLTOWNCLIA [id number] [place] [address] [place] ALT [Catalytic activity/Vol] 24 U/L Normal 7-38 [facility] Comment on above: Order Comment: Specimen Type : BLOOD SPECIMENOrdering Facility: [facility] Address: [address] [place] [address] Performed By: #### 96068-2 # ###[facility] MILLTOWNCLIA [id number] [place] [address] [place] Anion gap [Moles/Vol] 12 mmol/L Normal 9-18 [facility] Comment on above: Order Comment: Specimen Type : BLOOD SPECIMENOrdering Facility: [facility] Address: [address] [place] [address] Performed By: #### 66091-2 # ###[facility]ITALOSTER MILLTOWNCLIA [id number] [place] [address] [place] AST [Catalytic activity/Vol] 19 U/L Normal 13-35 [facility] Comment on above: Order Comment: Specimen Type : BLOOD SPECIMENOrdering Facility: [facility] Address: [address] [place] [address] Performed By: #### 50287-5 # ###[facility] MILLTOWNCLIA [id number] [address] [facility] [place] [address] [place] Bilirubin [Mass/Vol] 0.2 mg/dL Normal 0.2-1.3 [facility] Comment on above: Order Comment: Specimen Type : BLOOD SPECIMENOrdering Facility: [facility] Address: [address] [facility] [place] [address] Performed By: #### 79951-2 # ###[facility] RONAL MILLTOWNCLIA [id number] [place] [address] [place] Calcium [Mass/Vol] 9.4 mg/dL Normal 8.5-10.2 [facility] Comment on above: Order Comment: Specimen Type : BLOOD SPECIMENOrdering Facility: [facility] Address: [address] [place] [address] Performed By: #### 05389-2 # ###[facility] MILLTOWNCLIA [id number] [place] [address] [place] Chloride [Moles/Vol] 90 mmol/L Low 97-105 [facility] Comment on above: Order Comment: Specimen Type : BLOOD SPECIMENOrdering Facility: [facility] Address: [address] [place] [address] Performed By: #### 06572-1 # ###[facility] MILLWNCLIA [id number] [place] [address] [place] CO2 [Moles/Vol] 30 mmol/L Normal 22-30 [facility] Comment on above: Order Comment: Specimen Type : BLOOD SPECIMENOrdering Facility: [facility] Address: [address] Performed By: #### 10289-6 # ###[facility] MILLTOWNCLIA [id number] [place] [address] [place] Creatinine [Mass/Vol] 1.27 mg/dL High 0.58-0.96 [facility] Comment on above: Order Comment: Specimen Type : BLOOD SPECIMENOrdering Facility: [facility] Address: [address] [place] [place] [address] Performed By: #### 83593-3 # ###[facility] CENTERLI [id number] [place] [address] [place] ESTIMATED GLOMERULAR 53 mL/min/1.73m??? Low >=60 C [facility] FILTRATION RATE Comment on above: Order Comment: Specimen Type : BLOOD SPECIMENOrdering Facility: [facility] Address: [address] [place] [address] Result Comment: Estimated Gl omerular Filtration Rate [...] accurately reflect actual GFR. Performed By: #### 68547-4 # ###[facility] [id number] [place] [address] [place] Glucose [Mass/Vol] 221 mg/dL High 74-99 [facility] Comment on above: Order Comment: Specimen Type : BLOOD SPECIMENOrdering Facility: [facility] Address: [address] [place] [address] Result Comment: The [place] Diabetes Association (ADA) provides guidance for cutoff [...] of Medical Care in Diabetes 2016, [facility] Diabetes Association. Diabetes Care. 2016.39(Suppl 1). Performed By: #### 02323-0 # ###[facility] MED[facility] CENTERLIA [id number] [place] [address] [place] Potassium [Moles/Vol] 4.9 mmol/L Normal 3.7-5.1 [facility] Comment on above: Order Comment: Specimen Type : BLOOD SPECIMENOrdering Facility: [facility] Address: [address] [place] [address] Performed By: #### 71301-6 # ###[facility] RON[facility] MILLTOWNCLIA [id number] [place] [address] [place] Protein [Mass/Vol] 6.9 g/dL Normal 6.3-8.0 [facility] Comment on above: Order Comment: Specimen Type : BLOOD SPECIMENOrdering Facility: [facility] Address: [address] [place] [address] Performed By: #### 99616-2 # ###[facility] MILLTOWKALILIA [id number] [place] [address] [place] Sodium [Moles/Vol] 132 mmol/L Low 136-144 [facility] Comment on above: Order Comment: Specimen Type : BLOOD SPECIMENOrdering Facility: [facility] Address: [address] [place] [address] Performed By: #### 96127-9 # ###[facility] MILLTOWNCLIA [id number] [place] [address] [place] Urea nitrogen [Mass/Vol] 44 mg/dL High 7-21 [facility] Comment on above: Order Comment: Specimen Type : BLOOD SPECIMENOrdering Facility: [facility] Address: [address] [place] [address] Performed By: #### 90003-4 # ###[facility] MILLTOWNCLIA [id number] [place] [address] [place] Albumin [Mass/Vol] 3.7 g/dL Low 3.9 - 4.9 g/dL [facility] ALP [Catalytic 69 U/L 34 - 123 [facility]L [facility]/Vol] ALT [Catalytic 24 U/L 7 - 38 U/L [facility] rebecca activity/Vol] Anion gap [Moles/Vol] 12 mmol/L 9 - 18 mmol/L [facility] AST [Catalytic 19 U/L 13 - 35 U/L [facility] rebecca activity/Vol] Bilirubin [Mass/Vol] 0.2 mg/dL 0.2 - 1.3 mg/dL [facility] Calcium [Mass/Vol] 9.4 mg/dL 8.5 - 10.2 mg/dL [facility] Chloride [Moles/Vol] 90 mmol/L Low 97 - 105 mmol/L [facility] CO2 [Moles/Vol] 30 mmol/L 22 - 30 mmol/L [facility] Creatinine [Mass/Vol] 1.27 mg/dL High 0.58 - 0.96 mg/dL [facility] Estimated Glomerular 53 mL/min/1.73m Low >=60 mL/min/1.73m [facility] Filtration Rate Glucose [Mass/Vol] 221 mg/dL High 74 - 99 mg/dL [facility] Potassium [Moles/Vol] 4.9 mmol/L 3.7 - 5.1 mmol/L [facility] Protein [Mass/Vol] 6.9 g/dL 6.3 - 8.0 g/dL [facility] Sodium [Moles/Vol] 132 mmol/L Low 136 - 144 mmol/L [facility] Urea nitrogen [Mass/Vol] 44 mg/dL High 7 - 21 mg/dL [facility] HbA1c (Bld) on 11-11-2022 Average glucose Estimated from glycated 243 mg/dL Normal [facility] hemoglobin (Bld) [Mass/Vol] Comment on above: Order Comment: Specimen Type : BLOOD SPECIMENOrdering Facility: [facility] Address: [address] [place] [phone] Result Comment: eAG: (Estima mitul average glucose) is a calculated value from HgbA1c and is rep resentative of the average blood glucose level in the last 2- 3 month period. Performed By: #### 81281-5 # ###[facility] LABCLIA [id number] [place] [id number] [place] HbA1c (Bld) [Mass fraction] 10.1 % High 4.3-5.6 [facility] Comment on above: Order Comment: Specimen Type : BLOOD SPECIMENOrdering Facility: [facility] Address: [address] [facility] [place] [address] Result Comment: English Richard betes Association guidelines indicate that patients with HgbA1c in the range 5.7-6.4% are at increased risk for development of diab etes, and intervention by lifestyle modification may be benefici al. HgbA1c greater or equal to 6.5% is considered diagnostic of richard betes. Performed By: #### 00096-0 # ###[facility] LABIA [id number] [place] [id number] [place] Comprehensive metabolic 2000 panel on 01-10-2022 Albumin [Mass/Vol] 3.8 g/dL Low 3.9 - 4.9 g/dL [facility] ALP [Catalytic 65 U/L 34 - 123 U/L [facility] rebecca activity/Vol] ALT [Catalytic 36 U/L 7 - 38 U/L [facility] rebecca activity/Vol] Anion gap [Moles/Vol] 17 mmol/L 9 - 18 mmol/L [facility] AST [Catalytic 44 U/L High 13 - 35 U/L [facility] re[facility] activity/Vol] Bilirubin [Mass/Vol] 0.3 mg/dL 0.2 - 1.3 mg/dL [facility] Calcium [Mass/Vol] 9.6 mg/dL 8.5 - 10.2 mg/dL [facility] Chloride [Moles/Vol] 82 mmol/L Low 97 - 105 mmol/L [facility] CO2 [Moles/Vol] 29 mmol/L 22 - 30 mmol/L [facility] Creatinine [Mass/Vol] 2.32 mg/dL High 0.58 - 0.96 mg/dL [facility] Estimated Glomerular 26 mL/min/1.73m Low >=60 mL/min/1.73m [facility] Filtration Rate Glucose [Mass/Vol] 107 mg/dL High 74 - 99 mg/dL [facility] Potassium [Moles/Vol] 5.6 mmol/L High 3.7 - 5.1 mmol/L [facility] Protein [Mass/Vol] 6.7 g/dL 6.3 - 8.0 g/dL [facility] Sodium [Moles/Vol] 128 mmol/L Low 136 - 144 mmol/L [facility] Urea nitrogen [Mass/Vol] 71 mg/dL High 7 - 21 mg/dL [facility] HbA1c (Bld) on 11-09-2022 Average glucose Estimated from glycated 235 mg/dL [facility] hemoglobin (Bld) [Mass/Vol] HbA1c (Bld) [Mass fraction] 9.8 % High 4.3 - 5.6 % [facility] CNOV on 11-08-2022 CNOV Normal [facility] metabolic 2000 panel on 01-09-2022 Albumin [Mass/Vol] 3.8 g/dL Low 3.9-4.9 [facility] Comment on above: Order Comment: Specimen Type : BLOOD SPECIMENOrdering Facility: [facility] Address: [address] [address] Performed By: #### 98218-8 # ###[facility] LABIA [id number] [place] [address] [place] ALP [Catalytic activity/Vol] 65 U/L Normal 34-123 [facility] Comment on above: Order Comment: Specimen Type : BLOOD SPECIMENOrdering Facility: [facility] Address: [address] [address] Performed By: #### 51278-0 # ###[facility] LABCLIA [id number] [place] [address] [place] ALT [Catalytic activity/Vol] 36 U/L Normal 7-38 [facility] Comment on above: Order Comment: Specimen Type : BLOOD SPECIMENOrdering Facility: [facility] Address: [address] [address] Performed By: #### 83095-6 # ###[facility] LABCLIA [id number] [place] [address] [place] Anion gap [Moles/Vol] 17 mmol/L Normal 9-18 [facility] Comment on above: Order Comment: Specimen Type : BLOOD SPECIMENOrdering Facility: [facility] Address: [address] [place] [address] Performed By: #### 63413-0 # ###[facility] LABCLIA [id number] [place] [address] [place] AST [Catalytic activity/Vol] 44 U/L High 13-35 [facility] Comment on above: Order Comment: Specimen Type : BLOOD SPECIMENOrdering Facility: [facility] Address: [address] [place] [address] Performed By: #### 72447-5 # ###[facility] LABCLIA [id number] [place] [address] [place] Bilirubin [Mass/Vol] 0.3 mg/dL Normal 0.2-1.3 [facility] Comment on above: Order Comment: Specimen Type : BLOOD SPECIMENOrdering Facility: [facility] Address: [address] [place] [address] Performed By: #### 13839-7 # ###[facility] LABCLIA [id number] [place] [address] [place] Calcium [Mass/Vol] 9.6 mg/dL Normal 8.5-10.2 [facility] Comment on above: Order Comment: Specimen Type : BLOOD SPECIMENOrdering Facility: [facility] Address: [address] Performed By: #### 94174-2 # ###[facility] LABCLIA [id number] [place] [address] [place] Chloride [Moles/Vol] 82 mmol/L Low 97-105 [facility] Comment on above: Order Comment: Specimen Type : BLOOD SPECIMENOrdering Facility: [facility] Address: [address] [place], [place] [address] Performed By: #### 64435-8 # ###[facility] LABCLIA [id number] [place] [address] [place] CO2 [Moles/Vol] 29 mmol/L Normal 22-30 [facility] Comment on above: Order Comment: Specimen Type : BLOOD SPECIMENOrdering Facility: [facility] Address: [address] [place] [address] Performed By: #### 45893-0 # ###[facility] LABIA [id number] [place] [address] [place] Creatinine [Mass/Vol] 2.32 mg/dL High 0.58-0.96 [facility] Comment on above: Order Comment: Specimen Type : BLOOD SPECIMENOrdering Facility: [facility] Address: [address] [place] [address] Performed By: #### 35362-3 # ###[facility] LABIA [id number] [place] [address] [place] ESTIMATED GLOMERULAR 26 mL/min/1.73m??? Low >=60 C [facility] FILTRATION RATE Comment on above: Order Comment: Specimen Type : BLOOD SPECIMENOrdering Facility: [facility] Address: [address] [place] [address] Result Comment: Estimated Gl omerular Filtration Rate [...] accurately reflect actual GFR. Performed By: #### 13038-5 # ###[facility] LABIA [id number] [place] [address] [place] Glucose [Mass/Vol] 107 mg/dL High 74-99 [facility] Comment on above: Order Comment: Specimen Type : BLOOD SPECIMENOrdering Facility: [facility] Address: [address] [place] [address] Result Comment: The English Diabetes Association (ADA) provides guidance for cutoff [...] Standards of Medical Care in Diabetes 2016, [facility] Diabetes Association. Diabetes Care. 2016.39(Suppl 1). Performed By: #### 94433-6 # ###[facility] LABCLIA [id number] [place] [address] [place] Potassium [Moles/Vol] 5.6 mmol/L High 3.7-5.1 [facility] Comment on above: Order Comment: Specimen Type : BLOOD SPECIMENOrdering Facility: [facility] Address: [address] [place], [place] [address] Performed By: #### 29695-3 # ###[facility] LABCLIA [id number] [place] [address] [place] Protein [Mass/Vol] 6.7 g/dL Normal 6.3-8.0 [facility] Comment on above: Order Comment: Specimen Type : BLOOD SPECIMENOrdering Facility: [facility] Address: [address] [place] [address] Performed By: #### 37895-8 # ###[facility] LABCLIA [id number] [place] [address] [place] Sodium [Moles/Vol] 128 mmol/L Low 136-144 [facility] Comment on above: Order Comment: Specimen Type : BLOOD SPECIMENOrdering Facility: [facility] Address: [address] [address] Performed By: #### 90165-3 # ###[facility] LABCLIA [id number] [place] [address] [place] Urea nitrogen [Mass/Vol] 71 mg/dL High 7-21 [facility] Comment on above: Order Comment: Specimen Type : BLOOD SPECIMENOrdering Facility: [facility] Address: [address] [place] [address] Performed By: #### 25517-5 # ###[facility] LABCLIA [id number] [place] [address] [place] HbA1c (Bld) on 11-08-2022 Average glucose Estimated from glycated 235 mg/dL Normal [facility] hemoglobin (Bld) [Mass/Vol] Comment on above: Order Comment: Specimen Type : BLOOD SPECIMENOrdering Facility: [facility] Address: [address] [place] [address] Result Comment: eAG: (Estima mitul average glucose) is a calculated value from HgbA1c and is rep resentative of the average blood glucose level in the last 2- 3 month period. Performed By: #### 01118-2 # ###[facility] LABCLIA [id number] [address] [place] HbA1c (Bld) [Mass fraction] 9.8 % High 4.3-5.6 [facility] Comment on above: Order Comment: Specimen Type : BLOOD SPECIMENOrdering Facility: [facility] Address: [address] [place] [address] Result Comment: English Richard betes Association guidelines indicate that patients with HgbA1c in the range 5.7-6.4% are at increased risk for development of diab etes, and intervention by lifestyle modification may be benefici al. HgbA1c greater or equal to 6.5% is considered diagnostic of richard betes. Performed By: #### 38789-9 # ###[facility] LABCLIA [id number] [facility] [place] [address] [place] CNOV on 11-06-2022 CNOV [address] [facility] CNPN on 11-05-2022 CNPN Normal [facility] CNPN on 10-22-2022 CNPN Normal [facility] CNPN on 10-21-2022 CNPN Normal [facility] MAGNESIUM BLD on 10-19-2022 Magnesium [Mass/Vol] 2.0 mg/dL 1.7 - 2.3 mg/dL [facility] PHOSPHORUS INORGANIC on 10-19-2022 Phosphate [Mass/Vol] 3.4 mg/dL 2.7 - 4.8 mg/dL [facility] TSH BLD on 10-19-2022 TSH Qn 4.130 m[IU]/L 0.270 - 4.200 mIU/L [facility] CBC W Auto Differential panel (Bld) on 10-18-2022 Basophils (Bld) [#/Vol] 0.05 10*3/uL Normal <0.11 [facility] Comment on above: Order Comment: Specimen Type : BLOOD SPECIMENOrdering Facility: [facility] Address: [address] [place] [address] Performed By: #### 83395-7 # ###[facility] [id number] [place] [address] [place] Basophils/100 WBC (Bld) 0.6 % Normal [facility] Comment on above: Order Comment: Specimen Type : BLOOD SPECIMENOrdering Facility: [facility] Address: [address] [place], [place] [address] Performed By: #### 17524-6 # ###[facility] [id number] [place] [address] [place] Differential cell count method Nom (Bld) Auto Normal [facility] Comment on above: Order Comment: Specimen Type : BLOOD SPECIMENOrdering Facility: [facility] Address: [address] [place], [place] [address] Performed By: #### 65323-2 # ###[facility] MILLTOWNCLIA [id number] [place] [address] [place] Eosinophils (Bld) [#/Vol] 0.25 10*3/uL Normal <0.46 [facility] Comment on above: Order Comment: Specimen Type : BLOOD SPECIMENOrdering Facility: [facility] Address: [address] [place] [address] Performed By: #### 00975-1 # ###[facility] MILLWNCLIA [id number] [place] [address] [place] Eosinophils/100 WBC (Bld) 2.8 % Normal [facility] Comment on above: Order Comment: Specimen Type : BLOOD SPECIMENOrdering Facility: [facility] Address: [address] [place] [address] Performed By: #### 80104-1 # ###[facility] H[facility]PITALWNCLIA [id number] [place] [address] [place] Erythrocyte distribution width (RBC) 17.0 % High 11.5 -15.0 [facility] [Ratio] Comment on above: Order Comment: Specimen Type : BLOOD SPECIMENOrdering Facility: [facility] Address: [address] [place] [address] Performed By: #### 91685-5 # ###[facility] MILLWNCLIA [id number] [address] OF [place] Hematocrit (Bld) [Volume fraction] 43.7 % Normal 36.0-4 6.0 [facility] Comment on above: Order Comment: Specimen Type : BLOOD SPECIMENOrdering Facility: [facility] Address: [address] [place] [address] Performed By: #### 95055-7 # ###[facility] MILLWNCLIA [id number] [place] [address] [place] Hemoglobin (Bld) [Mass/Vol] 12.9 g/dL Normal 11.5-15.5 [facility] Comment on above: Order Comment: Specimen Type : BLOOD SPECIMENOrdering Facility: [facility] Address: [address] [place] [address] Performed By: #### 39903-4 # ###[facility] HOSPITALWCTLIA [id number] [place] [address] [place] Immature granulocytes (Bld) 0.08 10*3/uL Normal <0.10 [facility] [#/Vol] Comment on above: Order Comment: Specimen Type : BLOOD SPECIMENOrdering Facility: [facility] Address: [address] [place] [address] Performed By: #### 77606-0 # ###[facility] HOSPITALA [id number] [place] [address] [place] Immature granulocytes/100 WBC (Bld) 0.9 % Normal [facility] Comment on above: Order Comment: Specimen Type : BLOOD SPECIMENOrdering Facility: [facility] Address: [address] [place] [address] Performed By: #### 64412-1 # ###[facility] CENTERLIA [id number] [place] [address] [place] Lymphocytes (Bld) [#/Vol] 1.57 10*3/uL Normal 1.00-4.00 [facility] Comment on above: Order Comment: Specimen Type : BLOOD SPECIMENOrdering Facility: [facility] Address: [address] [place] [address] Performed By: #### 62123-8 # ###[facility] CENTERLIA [id number] [place] [address] [place] Lymphocytes/100 WBC (Bld) 17.8 % Normal [facility] Comment on above: Order Comment: Specimen Type : BLOOD SPECIMENOrdering Facility: [facility] Address: [address] [place] [address] Performed By: #### 60863-4 # ###[facility]ENTERALAYNA [id number] [address] [place] MCH (RBC) [Entitic mass] 27.7 pg Normal 26.0-34.0 [facility] Comment on above: Order Comment: Specimen Type : BLOOD SPECIMENOrdering Facility: [facility] Address: [address] [place] [address] Performed By: #### 67113-5 # ###[facility] CENTERKALISALT [facility] [id number] [place] [address] [place] MCHC (RBC) [Mass/Vol] 29.5 g/dL Low 30.5-36.0 [facility] Comment on above: Order Comment: Specimen Type : BLOOD SPECIMENOrdering Facility: [facility] Address: [address] [place] [address] Performed By: #### 16707-9 # ###[facility] HOSPITALShaq [id number] [address] [place] MCV (RBC) [Entitic vol] 93.8 fL Normal 80.0-100.0 [facility] Comment on above: Order Comment: Specimen Type : BLOOD SPECIMENOrdering Facility: [facility] Address: [address] [place] [address] Performed By: #### 54800-3 # ###[facility] [id number] [place] [address] [place] [facility] [place] Monocytes (Bld) [#/Vol] 0.38 10*3/uL Normal <0.87 [facility] Comment on above: Order Comment: Specimen Type : BLOOD SPECIMENOrdering Facility: [facility] Address: [address] [address] Performed By: #### 35977-1 # ###[facility] MILLTOWNCLIA [id number] [place] [address] [place] Monocytes/100 WBC (Bld) 4.3 % Normal [facility] Comment on above: Order Comment: Specimen Type : BLOOD SPECIMENOrdering Facility: [facility] Address: [address] [address] Performed By: #### 13577-6 # ###[facility] MILLTOWNCLIA [id number] [place] [address] [place] Neutrophils (Bld) [#/Vol] 6.50 10*3/uL Normal 1.45-7.50 [facility] Comment on above: Order Comment: Specimen Type : BLOOD SPECIMENOrdering Facility: [facility] Address: [address] [address] Performed By: #### 12498-9 # ###[facility]ENTERNCLIA [id number] [place] [address] [place] Neutrophils/100 WBC (Bld) 73.6 % Normal [facility] Comment on above: Order Comment: Specimen Type : BLOOD SPECIMENOrdering Facility: [facility] Address: [address] [address] Performed By: #### 51175-8 # ###[facility] MILLWNCLIA [id number] [place] [address] [place] Nucleated RBC (Bld) [#/Vol] 10*3/uL Normal <0.01 [facility] Comment on above: Order Comment: Specimen Type : BLOOD SPECIMENOrdering Facility: [facility] Address: [address] [address] Performed By: #### 27004-9 # ###[facility] MILLWNCLIA [id number] [place] [address] [place] Nucleated RBC/100 WBC (Bld) [Ratio] 0.0 /100 WBC Normal [facility] Comment on above: Order Comment: Specimen Type : BLOOD SPECIMENOrdering Facility: [facility] Address: [address] [place] [address] Performed By: #### 71809-7 # ###[facility] CENTERALAYNA [id number] [place] [address] [place] Platelet mean volume (Bld) [Entitic 9.8 fL Normal 9.0-1 2.7 [facility] vol] Comment on above: Order Comment: Specimen Type : BLOOD SPECIMENOrdering Facility: [facility] Address: [address] [place] [address] Performed By: #### 44300-9 # ###[facility] CENTERKALIShaq [id number] [place] [address] [place] Platelets (Bld) [#/Vol] 188 10*3/uL Normal 150-400 [facility] Comment on above: Order Comment: Specimen Type : BLOOD SPECIMENOrdering Facility: [facility] Address: [address] [place] [address] Performed By: #### 87920-8 # ###[facility] CENTERAYALAA [id number] [place] [address] [place] RBC (Bld) [#/Vol] 4.66 10*6/uL Normal 3.90-5.20 [facility] Comment on above: Order Comment: Specimen Type : BLOOD SPECIMENOrdering Facility: [facility] Address: [address] [place] [address] Performed By: #### 70339-6 # ###[facility] CENTERKALILIA [id number] [place] [address] [place] WBC (Bld) [#/Vol] 8.83 10*3/uL Normal 3.70-11.00 [facility] Comment on above: Order Comment: Specimen Type : BLOOD SPECIMENOrdering Facility: [facility] Address: [place] [address] Performed By: #### 38810-2 # ###[facility] [id number] [place] [address] [place] Basophils (Bld) [#/Vol] 0.05 10*3/uL <0.11 k/uL [facility] Basophils/100 WBC (Bld) 0.6 % [facility] Differential cell count method Auto [facility] Nom (Bld) Eosinophils (Bld) [#/Vol] 0.25 10*3/uL <0.46 k/uL [facility] Eosinophils/100 WBC (Bld) 2.8 % [facility] Erythrocyte distribution width 17.0 % High 11.5 - 15. 0 % [facility] (RBC) [Ratio] Hematocrit (Bld) [Volume 43.7 % 36.0 - 46.0 % [facility] fraction] Hemoglobin (Bld) [Mass/Vol] 12.9 g/dL 11.5 - 15.5 g /dL [facility] Immature granulocytes (Bld) 0.08 10*3/uL <0.10 k/uL [facility] [#/Vol] Immature granulocytes/100 WBC 0.9 % [facility] (Bld) Lymphocytes (Bld) [#/Vol] 1.57 10*3/uL 1.00 - 4.00 k/u L [facility] Lymphocytes/100 WBC (Bld) 17.8 % [facility] MCH (RBC) [Entitic mass] 27.7 pg 26.0 - 34.0 pg C [facility] MCHC (RBC) [Mass/Vol] 29.5 g/dL Low 30.5 - 36.0 g/dL [facility] MCV (RBC) [Entitic vol] 93.8 fL 80.0 - 100.0 fL C [facility] Monocytes (Bld) [#/Vol] 0.38 10*3/uL <0.87 k/uL [facility] Monocytes/100 WBC (Bld) 4.3 % [facility] Neutrophils (Bld) [#/Vol] 6.50 10*3/uL 1.45 - 7.50 k/u L [facility] Neutrophils/100 WBC (Bld) 73.6 % [facility] Nucleated RBC (Bld) [#/Vol] <0.01 k/uL [facility] Nucleated RBC/100 WBC (Bld) 0.0 /100 WBC [facility] [Ratio] Platelet mean volume (Bld) 9.8 fL 9.0 - 12.7 fL [facility] [Entitic vol] Platelets (Bld) [#/Vol] 188 10*3/uL 150 - 400 k/uL [facility] RBC (Bld) [#/Vol] 4.66 10*6/uL 3.90 - 5.20 m/uL [facility] WBC (Bld) [#/Vol] 8.83 10*3/uL 3.70 - 11.00 k/uL [facility] CNOV on 10-18-2022 CNOV Normal [facility] CNPN on 10-18-2022 CNPN Normal [facility] Comprehensive metabolic 2000 panel on 12-18-2021 Albumin [Mass/Vol] 4.2 g/dL Normal 3.9-4.9 [facility] Comment on above: Order Comment: Specimen Type : BLOOD SPECIMENOrdering Facility: [facility] Address: [address] [address] Performed By: #### 79818-3 # ###[facility] [id number] [place] [address] [place] [facility] ALP [Catalytic activity/Vol] 68 U/L Normal 34-123 [facility] Comment on above: Order Comment: Specimen Type : BLOOD SPECIMENOrdering Facility: [facility] Address: [address] [address] Performed By: #### 95141-3 # ###[facility] [id number] [place] [address] [place] ALT [Catalytic activity/Vol] 24 U/L Normal 7-38 [facility] Comment on above: Order Comment: Specimen Type : BLOOD SPECIMENOrdering Facility: [facility] Address: [address] [place] [address] Performed By: #### 50084-4 # ###[facility] MILLTOWNCLIA [id number] [place] [address] [place] Anion gap [Moles/Vol] 10 mmol/L Normal 9-18 [facility] Comment on above: Order Comment: Specimen Type : BLOOD SPECIMENOrdering Facility: [facility] Address: [address] [address] Performed By: #### 61040-7 # ###[facility] MILLTOWNCLIA [id number] [place] [address] [place] AST [Catalytic activity/Vol] 33 U/L Normal 13-35 [facility] Comment on above: Order Comment: Specimen Type : BLOOD SPECIMENOrdering Facility: [facility] Address: [address] [place] [address] Performed By: #### 31058-7 # ###[facility] MILLTOWNCLIA [id number] [place] [address] [place] Bilirubin [Mass/Vol] 0.2 mg/dL Normal 0.2-1.3 [facility] Comment on above: Order Comment: Specimen Type : BLOOD SPECIMENOrdering Facility: [facility] Address: [address] [address] Performed By: #### 79732-2 # ###[facility] MILLTOWNCLIA [id number] [place] [address] [place] Calcium [Mass/Vol] 10.2 mg/dL Normal 8.5-10.2 [facility] Comment on above: Order Comment: Specimen Type : BLOOD SPECIMENOrdering Facility: [facility] Address: [address] [address] Performed By: #### 47823-9 # ###[facility] MILLTOWNCLIA [id number] [place] [address] [place] Chloride [Moles/Vol] 91 mmol/L Low 97-105 [facility] Comment on above: Order Comment: Specimen Type : BLOOD SPECIMENOrdering Facility: [facility] Address: [address] [place] [address] Performed By: #### 88909-6 # ###[facility] MILLTOWNCLIA [id number] [place] [address] [place] CO2 [Moles/Vol] 39 mmol/L High 22-30 [facility] Comment on above: Order Comment: Specimen Type : BLOOD SPECIMENOrdering Facility: [facility] Address: [address] [place] [address] Performed By: #### 84731-4 # ###[facility] HOSPITALWNCLIA [id number] [place] [address] [place] Creatinine [Mass/Vol] 0.95 mg/dL Normal 0.58-0.96 [facility] Comment on above: Order Comment: Specimen Type : BLOOD SPECIMENOrdering Facility: [facility] Address: [address] [place] [address] Performed By: #### 18036-4 # ###[facility] CENTERNCLIA [id number] [address] [place] ESTIMATED GLOMERULAR 75 mL/min/1.73m??? Normal >=60 C [facility] FILTRATION RATE Comment on above: Order Comment: Specimen Type : BLOOD SPECIMENOrdering Facility: [facility] Address: [address] [place] [address] Result Comment: Estimated Gl omerular Filtration Rate [...] accurately reflect actual GFR. Performed By: #### 40539-7 # ###[facility] MILLTOWNCLIA [id number] [place] [address] [place] Glucose [Mass/Vol] 180 mg/dL High 74-99 [facility] Comment on above: Order Comment: Specimen Type : BLOOD SPECIMENOrdering Facility: [facility] Address: [place] [address] Result Comment: The [place] Diabetes Association (ADA) provides guidance for cutoff [...] of Medical Care in Diabetes 2016, [facility] Diabetes Association. Diabetes Care. 2016.39(Suppl 1). Performed By: #### 30650-2 # ###[facility] MILLTOWNCLIA [id number] [place] [address] [place] Potassium [Moles/Vol] 4.3 mmol/L Normal 3.7-5.1 [facility] Comment on above: Order Comment: Specimen Type : BLOOD SPECIMENOrdering Facility: [facility] Address: [place] [address] Performed By: #### 38357-9 # ###[facility] MILLTOWNCLIA [id number] [place] [address] [place] Protein [Mass/Vol] 7.4 g/dL Normal 6.3-8.0 [facility] Comment on above: Order Comment: Specimen Type : BLOOD SPECIMENOrdering Facility: [facility] Address: [place] [address] Performed By: #### 72933-3 # ###[facility] MILLTOWNCLIA [id number] [place] [address] [place] Sodium [Moles/Vol] 140 mmol/L Normal 136-144 [facility] Comment on above: Order Comment: Specimen Type : BLOOD SPECIMENOrdering Facility: [facility] Address: [address] [place] [address] Performed By: #### 94085-6 # ###[facility] MILLTOWNCLIA [id number] [place] [address] [place] Urea nitrogen [Mass/Vol] 22 mg/dL High 7-21 [facility] Comment on above: Order Comment: Specimen Type : BLOOD SPECIMENOrdering Facility: [facility] Address: [address] [place] [address] Performed By: #### 65155-9 # ###[facility] MILLTOWNCLIA [id number] [place] [address] [place] Albumin [Mass/Vol] 4.2 g/dL 3.9 - 4.9 g/dL [facility] ALP [Catalytic 68 U/L 34 - 123 U/L [facility] activity/Vol] ALT [Catalytic 24 U/L 7 - 38 U/L [facility] rebecca activity/Vol] Anion gap [Moles/Vol] 10 mmol/L 9 - 18 mmol/L [facility] AST [Catalytic 33 U/L 13 - 35 U/L [facility] rebecca activity/Vol] Bilirubin [Mass/Vol] 0.2 mg/dL 0.2 - 1.3 mg/dL [facility] Calcium [Mass/Vol] 10.2 mg/dL 8.5 - 10.2 mg/dL [facility] Chloride [Moles/Vol] 91 mmol/L Low 97 - 105 mmol/L [facility] CO2 [Moles/Vol] 39 mmol/L High 22 - 30 mmol/L [facility] Creatinine [Mass/Vol] 0.95 mg/dL 0.58 - 0.96 mg/dL C [facility] Estimated Glomerular 75 mL/min/1.73m >=60 mL/min/1.73m [facility] Filtration Rate Glucose [Mass/Vol] 180 mg/dL High 74 - 99 mg/dL [facility] Potassium [Moles/Vol] 4.3 mmol/L 3.7 - 5.1 mmol/L [facility] Protein [Mass/Vol] 7.4 g/dL 6.3 - 8.0 g/dL [facility] Sodium [Moles/Vol] 140 mmol/L 136 - 144 mmol/L [facility] Urea nitrogen [Mass/Vol] 22 mg/dL High 7 - 21 mg/dL [facility] ECG01 on 10-18-2022 ECG01 Normal [facility] SerPl-mCnc on 10-18-2022 Magnesium [Mass/Vol] 2.0 mg/dL Normal 1.7-2.3 [facility] Comment on above: Order Comment: Specimen Type : BLOOD SPECIMENOrdering Facility: [facility] Address: [address] [place] [id number] Performed By: #### 2777-1, 1 9123-08, 3016-01 ####[facility] LABCLIA [id number] [address] [address] [place] Phosphate SerPl-mCnc on 10-18-2022 Phosphate [Mass/Vol] 3.4 mg/dL Normal 2.7-4.8 [facility] Comment on above: Order Comment: Specimen Type : BLOOD SPECIMENOrdering Facility: [facility] Address: [place] [address] Performed By: #### 2777-1, 1 71, 3 ####[facility] LABCLIA [id number] [address] [address] [place] TSH SerPl-aCnc on 10-18-2022 TSH Qn 4.130 m[IU]/L Normal 0.270-4.200 [facility] Comment on above: Order Comment: Specimen Type : BLOOD SPECIMENOrdering Facility: [facility] Address: [address] [place] [address] Result Comment: If the patie nt is [...] Mei, et al. 2017 Guidelines of the English T hyroid Association for the Diagnosis and Management of Thyroid Di sease during and the . Thyroid, 2017:27 :3:315-389. Performed By: #### 2777-1, 1 9123-9, 3016-3 ####[facility] LABCLIA [id number] [place] [address] [place] XR CHEST 2V FRONTAL/LAT on 10-18-2022 XR CHEST 2V FRONTAL/LAT Normal [facility] CNPN on 09-09-2022 CNPN Normal [facility] CNOV on 07-23-2022 CNOV Normal [facility] CNPN on 07-11-2022 CNPN Normal [facility] ALBUMIN/CREAT RATIO RND UR on 07-09-20 22 Albumin DL <= 20 mg/L (U) [Mass/Vol] 20.0 mg/L Normal [facility] Comment on above: Order Comment: Specimen Type : URINE SPECIMENOrdering Facility: [facility] Address: [address] [place] [address] Performed By: #### UACR #### [facility] LABCLIA [id number] [place] [address] [place] Albumin/Creatinine (U) [Mass ratio] 63 mg/g High <30 [facility] Comment on above: Order Comment: Specimen Type : URINE SPECIMENOrdering Facility: [facility] Address: [address] [place] [address] Result Comment: Adult Male a nd Female Nephrotic Criteria:<30 mg/g is considered normal to mild ly bzxwifscn33-206 mg/g is considered moderately increased>300 mg/ g is considered severely increasedKDIGO. (2013). KDIG O 2012 Clinical Practice Guideline for the Evaluation and Managemen t of Chronic Kidney Disease. Official Journal of the International Society of Nephrology, 3(1), 1-150. Performed By: #### UACR #### [facility] LABCLIA [id number] [place] [address] [place] Creatinine (U) [Mass/Vol] 31.5 mg/dL Normal 20.0-300.0 [facility] Comment on above: Order Comment: Specimen Type : URINE SPECIMENOrdering Facility: [facility] Address: [address] [place], [place] [phone] Performed By: #### UACR #### [facility] LABCLIA [id number] [place] [address] [place] CNOV on 07-09-2022 CNOV Normal [facility] CNPN on 07-09-2022 CNPN Normal [facility] Comprehensive metabolic 2000 panel on 0 07-09-2022 Albumin [Mass/Vol] 4.1 g/dL Normal 3.9-4.9 [facility] Comment on above: Order Comment: Specimen Type : BLOOD SPECIMENOrdering Facility: [facility] Address: [address] [place] [phone] Performed By: #### 92145-8, 42288-2 ####[facility] LABCLIA [id number] [address] [address] [place] ALP [Catalytic activity/Vol] 58 U/L Normal 34-123 [facility] Comment on above: Order Comment: Specimen Type : BLOOD SPECIMENOrdering Facility: [facility] Address: [address] Performed By: #### 49637-9, 61562-1 ####[facility] LABCLIA [id number] [address] [facility] [place] [id number] [place] ALT [Catalytic activity/Vol] 30 U/L Normal 7-38 [facility] Comment on above: Order Comment: Specimen Type : BLOOD SPECIMENOrdering Facility: [facility] Address: [address] [place], [place] [address] Performed By: #### 54952-6, 19439-9 ####[facility] LABCLIA [id number] 0 [facility] [place] [address] [place] Anion gap [Moles/Vol] 12 mmol/L Normal 9-18 [facility] Comment on above: Order Comment: Specimen Type : BLOOD SPECIMENOrdering Facility: [facility] Address: [address] [place], [place] [address] Performed By: #### 28582-6, 43012-0 ####[facility] LABCLIA [id number] 0 [place] [address] [place] AST [Catalytic activity/Vol] 38 U/L High 13-35 [facility] Comment on above: Order Comment: Specimen Type : BLOOD SPECIMENOrdering Facility: [facility] Address: [address] [place] [address] Performed By: #### 44215-4, 89738-9 ####[facility] LABCLIA [id number] 0 [place] [address] [place] Bilirubin [Mass/Vol] 0.3 mg/dL Normal 0.2-1.3 [facility] Comment on above: Order Comment: Specimen Type : BLOOD SPECIMENOrdering Facility: [facility] Address: [address] [place] [address] Performed By: #### 60196-8, 95331-6 ####[facility] LABCLIA [id number] [address] [address] [place] Calcium [Mass/Vol] 10.5 mg/dL High 8.5-10.2 [facility] Comment on above: Order Comment: Specimen Type : BLOOD SPECIMENOrdering Facility: [facility] Address: [address] [place] [address] Performed By: #### 99624-5, 88557-8 ####[facility] LABCLIA [id number] [address] [place] [id number] [place] Chloride [Moles/Vol] 93 mmol/L Low 97-105 [facility] Comment on above: Order Comment: Specimen Type : BLOOD SPECIMENOrdering Facility: [facility] Address: [address] [place] [address] Performed By: #### 21411-8, 68173-2 ####[facility] LABCLIA [id number] 0 [place] [address] [place] CO2 [Moles/Vol] 33 mmol/L High 22-30 [facility] Comment on above: Order Comment: Specimen Type : BLOOD SPECIMENOrdering Facility: [facility] Address: [address] [place] [address] Performed By: #### 80761-8, 32888-7 ####[facility] LABCLIA [id number] 0 [facility] [address] [address] [place] Creatinine [Mass/Vol] 0.73 mg/dL Normal 0.58-0.96 [facility] Comment on above: Order Comment: Specimen Type : BLOOD SPECIMENOrdering Facility: [facility] Address: [address] [place] [address] Performed By: #### 23659-2, 15106-9 ####[facility] LABIA [id number] [address] ESTIMATED GLOMERULAR 104 mL/min/1.73m??? Normal >=60 [facility] FILTRATION RATE Comment on above: Order Comment: Specimen Type : BLOOD SPECIMENOrdering Facility: [facility] Address: [address] [place] [address] Result Comment: Estimated Gl omerular Filtration Rate [...] accurately reflect actual GFR. Performed By: #### 38821-3, 20742-5 ####[facility] LABIA [id number] [address] Glucose [Mass/Vol] 165 mg/dL High 74-99 [facility] Comment on above: Order Comment: Specimen Type : BLOOD SPECIMENOrdering Facility: [facility] Address: [address] [place] [address] Result Comment: The [place] Diabetes Association (ADA) provides guidance for cutoff [...] Standards of Medical Care in Diabetes 2016, [facility] Diabetes Association. Diabetes Care. 2016.39(Suppl 1). Performed By: #### 03478-3, 37728-5 ####[facility] LABCLIA [id number] 0 [facility] [place] [id number] [place] Potassium [Moles/Vol] 4.6 mmol/L Normal 3.7-5.1 [facility] Comment on above: Order Comment: Specimen Type : BLOOD SPECIMENOrdering Facility: [facility] Address: [address] [place], [place] [address] Performed By: #### 71801-5, 35990-1 ####[facility] LABCLIA [id number] 0 [place] [address] [place] Protein [Mass/Vol] 7.3 g/dL Normal 6.3-8.0 [facility] Comment on above: Order Comment: Specimen Type : BLOOD SPECIMENOrdering Facility: [facility] Address: [address] [place], [place] [address] Performed By: #### 73822-4, 23588-4 ####[facility] LABCLIA [id number] 0 [place] [address] [place] Sodium [Moles/Vol] 138 mmol/L Normal 136-144 [facility] Comment on above: Order Comment: Specimen Type : BLOOD SPECIMENOrdering Facility: [facility] Address: [address] [place], [place] [address] Performed By: #### 01855-7, 23598-2 ####[facility] LABCLIA [id number] 0 [place] [address] [place] Urea nitrogen [Mass/Vol] 11 mg/dL Normal 7-21 [facility] Comment on above: Order Comment: Specimen Type : BLOOD SPECIMENOrdering Facility: [facility] Address: [address] [place] [address] Performed By: #### 62033-1, 98021-9 ####[facility] LABCLIA [id number] 0 [facility] [place] [id number] [place] HbA1c (Bld) on 08-09-2022 Average glucose Estimated from glycated 232 mg/dL Normal [facility] hemoglobin (Bld) [Mass/Vol] Comment on above: Order Comment: Specimen Type : BLOOD SPECIMENOrdering Facility: [facility] Address: [address] [place] [address] Result Comment: eAG: (Estima mitul average glucose) is a calculated value from HgbA1c and is rep resentative of the average blood glucose level in the last 2- 3 month period. Performed By: #### 09875-9 # ###[facility] LABCLIA [id number] [place] [address] [place] HbA1c (Bld) [Mass fraction] 9.7 % High 4.3-5.6 [facility] Comment on above: Order Comment: Specimen Type : BLOOD SPECIMENOrdering Facility: [facility] Address: [address] [place], [place] [phone] Result Comment: English Richard betes Association guidelines indicate that patients with HgbA1c in the range 5.7-6.4% are at increased risk for development of diab etes, and intervention by lifestyle modification may be benefici al. HgbA1c greater or equal to 6.5% is considered diagnostic of richard betes. Performed By: #### 65762-8 # ###[facility] LABCLIA [id number] [place] [address] [place] NT-proBNP [facility] on 07-09-2022 Natriuretic peptide.B prohormone 55 pg/mL Normal <125 [facility] N-Terminal [Mass/Vol] Comment on above: Order Comment: Specimen Type : BLOOD SPECIMENOrdering Facility: [facility] Address: [address] [place] [address] Performed By: #### 99346-7, 44002-6 ####[facility] LABCLIA [id number] [address] [place] XR CHEST 2V FRONTAL/LAT on 07-09-2022 XR CHEST 2V FRONTAL/LAT Normal [facility] CNPN on 07-03-2022 CNPN Normal [facility] CNPN on 06-28-2022 CNPN Normal [facility] CNPN on 2022 CNPN Normal [facility] CNPN on 06-20-2022 CNPN Normal [facility] CNPN on 06-13-2022 CNPN Normal [facility] CNPTOUTREACH on 05-29-2022 CNPTOUTREACH Normal [facility] CNPN on 04-09-2022 CNPN Normal [facility] CNPN on 04-03-2022 CNPN Normal [facility] CNPN on 03-29-2022 CNPN Normal [facility] CNPN on 03-28-2022 CNPN Normal [facility] CNPN on 03-20-2022 CNPN Normal [facility] CNOV on 03-19-2022 CNOV Normal [facility] Comprehensive metabolic 2000 panel on 03-19-2022 Albumin [Mass/Vol] 4.0 g/dL Normal 3.9-4.9 [facility] Comment on above: Order Comment: Specimen Type : BLOOD SPECIMENOrdering Facility: [facility] Address: [address] [place] [address] Performed By: #### 03231-9 # ###[facility] [id number] [place] [address] [place] ALP [Catalytic activity/Vol] 71 U/L Normal 34-123 [facility] Comment on above: Order Comment: Specimen Type : BLOOD SPECIMENOrdering Facility: [facility] Address: [address] [place] [address] Performed By: #### 01032-0 # ###[facility] LABIA [id number] [place] [address] [place] ALT [Catalytic activity/Vol] 22 U/L Normal 7-38 [facility] Comment on above: Order Comment: Specimen Type : BLOOD SPECIMENOrdering Facility: [facility] Address: [address] [place], [place] [address] Performed By: #### 39925-9 # ###[facility] LABCLIA [id number] [place] [address] [place] Anion gap [Moles/Vol] 10 mmol/L Normal 9-18 [facility] Comment on above: Order Comment: Specimen Type : BLOOD SPECIMENOrdering Facility: [facility] Address: [address] [place], [place] [address] Performed By: #### 39115-2 # ###[facility] LABCLIA [id number] [place] [address] [place] AST [Catalytic activity/Vol] 30 U/L Normal 13-35 [facility] Comment on above: Order Comment: Specimen Type : BLOOD SPECIMENOrdering Facility: [facility] Address: [address] [place], [place] [address] Performed By: #### 00704-7 # ###[facility] LABCLIA [id number] [place] [address] [place] Bilirubin [Mass/Vol] 0.2 mg/dL Normal 0.2-1.3 [facility] Comment on above: Order Comment: Specimen Type : BLOOD SPECIMENOrdering Facility: [facility] Address: [address] [place] [address] Performed By: #### 41294-4 # ###[facility] LABCLIA [id number] [place] [address] [place] Calcium [Mass/Vol] 9.8 mg/dL Normal 8.5-10.2 [facility] Comment on above: Order Comment: Specimen Type : BLOOD SPECIMENOrdering Facility: [facility] Address: [address] [place], [place] [address] Performed By: #### 10766-2 # ###[facility] LABCLIA [id number] [place] [address] [place] Chloride [Moles/Vol] 95 mmol/L Low 97-105 [facility] Comment on above: Order Comment: Specimen Type : BLOOD SPECIMENOrdering Facility: [facility] Address: [address] [place] [address] Performed By: #### 16851-9 # ###[facility] LABCLIA [id number] [place] [address] [place] CO2 [Moles/Vol] 33 mmol/L High 22-30 [facility] Comment on above: Order Comment: Specimen Type : BLOOD SPECIMENOrdering Facility: [facility] Address: [address] [place] [address] Performed By: #### 83120-3 # ###[facility] LABCLIA [id number] [place] [address] [place] Creatinine [Mass/Vol] 0.78 mg/dL Normal 0.58-0.96 [facility] Comment on above: Order Comment: Specimen Type : BLOOD SPECIMENOrdering Facility: [facility] Address: [address] [place] [address] Performed By: #### 26763-5 # ###[facility] LABIA [id number] [place] [address] [place] ESTIMATED GLOMERULAR 96 mL/min/1.73m??? Normal >=60 C [facility] FILTRATION RATE Comment on above: Order Comment: Specimen Type : BLOOD SPECIMENOrdering Facility: [facility] Address: [address] [place] [address] Result Comment: Estimated Gl omerular Filtration Rate [...] accurately reflect actual GFR. Performed By: #### 60356-2 # ###[facility] LABIA [id number] [place] [address] [place] Glucose [Mass/Vol] 251 mg/dL High 74-99 [facility] Comment on above: Order Comment: Specimen Type : BLOOD SPECIMENOrdering Facility: [facility] Address: [address] [place], [place] [phone] Result Comment: The English Diabetes Association (ADA) provides guidance for cutoff [...] of Medical Care in Diabetes 2016, [facility] Diabetes Association. Diabetes Care. 2016.39(Suppl 1). Performed By: #### 95204-2 # ###[facility] LABIA [id number] [place] [address] [place] Potassium [Moles/Vol] 4.9 mmol/L Normal 3.7-5.1 [facility] Comment on above: Order Comment: Specimen Type : BLOOD SPECIMENOrdering Facility: [facility] Address: [address] [place] [phone] Performed By: #### 87770-2 # ###[facility] LABIA [id number] [place] [address] [place] Protein [Mass/Vol] 6.7 g/dL Normal 6.3-8.0 [facility] Comment on above: Order Comment: Specimen Type : BLOOD SPECIMENOrdering Facility: [facility] Address: [address] Performed By: #### 93122-6 # ###[facility] LABIA [id number] [place] [address] [place] Sodium [Moles/Vol] 138 mmol/L Normal 136-144 [facility] Comment on above: Order Comment: Specimen Type : BLOOD SPECIMENOrdering Facility: [facility] Address: [address] [place] [address] Performed By: #### 90504-9 # ###[facility] LABIA [id number] [place] [address] [place] Urea nitrogen [Mass/Vol] 13 mg/dL Normal 7-21 [facility] Comment on above: Order Comment: Specimen Type : BLOOD SPECIMENOrdering Facility: [facility] Address: [address] [place] [address] Performed By: #### 80902-8 # ###[facility] [id number] [place] [address] [place] HGB A1C on 03-19-2022 Average glucose Estimated from glycated 263 mg/dL Normal [facility] hemoglobin (Bld) [Mass/Vol] Comment on above: Order Comment: Specimen Type : BLOOD SPECIMENOrdering Facility: [facility] Address: [address] [place] [address] Result Comment: eAG: (Estima mitul average glucose) is a calculated value from HgbA1c and is rep resentative of the average blood glucose level in the last 2- 3 month period. Performed By: #### HBA1C ### #[facility] [id number] [place] [address] [place] HbA1c (Bld) [Mass fraction] 10.8 % High 4.3-5.6 [facility] Comment on above: Order Comment: Specimen Type : BLOOD SPECIMENOrdering Facility: [facility] Address: [address] [place] [address] Result Comment: English Richard betes Association guidelines indicate that patients with HgbA1c in the range 5.7-6.4% are at increased risk for development of diab etes, and intervention by lifestyle modification may be benefici al. HgbA1c greater or equal to 6.5% is considered diagnostic of richard betes. Performed By: #### HBA1C ### #[facility] LABCLIA [id number] [place] [address] [place] UA DIP, URINE (POC) on 03-19-2022 BILIRUBIN UA (POCT) Negative Negative [facility] CLARITY UA (POCT) [facility] COLOR UA (POCT) [facility] inic GLUCOSE UA (POCT) 500 mg/dL Abnormal Negative mg/dL [facility] HEMOGLOBIN/BLOOD UA (POCT) Negative Negative [facility] KETONE UA (POCT) Negative Negative mg/dL [facility] LEUKOCYTES UA (POCT) Negative Negative [facility] NITRITE UA (POCT) Negative Negative [facility] PH UA (POCT) 7.0 4.5 - 8.0 [facility] c Protein Ql (U) Negative Negative mg/dL [facility] [facility] SPECIFIC GRAVITY UA (POCT) 1.020 1.005 - 1.030 [facility] UROBILINOGEN UA (POCT) 0.2 E.U./dL Normal E.U./dL [facility] CNPN on 03-05-2022 CNPN Normal [facility] Vital Signs Date Time Vital Sign Value Performing Clinician Facilit y 02-23-2023 Body temperature 98.29 [degF] [facility] 14:00 Work Phone: 02-23-2023 Diastolic blood 82 mm[Hg] [facility] 14: pressure Work Phone: 02-23-2023 Heart rate 84 /min Zahra Jackson RN [place] [facility] 14:00 Work Phone: 02-23-2023 Respiratory rate 20 /min [facility] 14:000 Work Phone: 02-23-2023 SaO2% (BldA) [Mass 96 % Zahra Jackson RN [facility] 14: fraction] Work Phone: 02-23-2023 Systolic blood 138 mm[Hg] Zahra Jackson RN [facility] 14:040 pressure Work Phone: 02-18-2023 Diastolic blood 72 mm[Hg] Panfilo Oreilly MD [facility] 11: pressure Work Phone: 02-18-2023 Heart rate 99 /min Panfilo Oreilly MD [facility] 11: Work Phone: 02-18-2023 Respiratory rate 18 /min Panfilo Oreilly MD [facility] 11: Work Phone: 02-18-2023 SaO2% (BldA) [Mass 91 % Panfilo Oreilly MD [facility] 11: fraction] Work Phone: 02-18-2023 Systolic blood 128 mm[Hg] Panfilo Oreilly MD [facility] 11: pressure Work Phone: 12-30-2022 SaO2% (BldA) [Mass 93 % PANFILO OREILLY Tn solo [facility] 13:37-0500 fraction] [facility] Comment on above: Order Comment: Specimen Type : ARTERIAL BLOOD SPECIMENOrdering Facility: [facility] Address: [address] [place] [address] Performed By: #### ALLBG ### #[facility]ATORYCLIA [id number] [place] [address] [facility] 12-27-2022 07:00-0500 SaO2% (BldA) [Mass 97 % PANFILO VU [facility] fraction] [facility] Comment on above: Order Comment: Specimen Type : ARTERIAL BLOOD SPECIMENOrdering Facility: [facility] Address: [address] [place] [address] Performed By: #### ALLBG ### #[facility]ORATORYCLIA [id number] [place] [address] [facility] 12-25-2022 13:42-0500 SaO2% (BldA) [Mass 97 % CHRISTOPHER B HORACE [facility] fraction] [facility] Comment on above: Order Comment: Specimen Type : ARTERIAL BLOOD SPECIMENOrdering Facility: [facility] Address: [address] [place] [address] Performed By: #### ALLBG ### #[facility]ORATORYCLIA [id number] [place] [address] [facility] 12-25-2022 10:54-0500 SaO2% (BldA) [Mass 99 % CHRISTOPHER B LEONLEY [facility] fraction] [facility] Comment on above: Order Comment: Specimen Type : ARTERIAL BLOOD SPECIMENOrdering Facility: [facility] Address: [address] [place] [address] Performed By: #### ALLBG ### #[facility]ORATORYCLIA [id number] [place] [address] [facility] 12-25-2022 08:26-0500 SaO2% (BldA) [Mass 96 % CHRISTOPHER B HORACE [facility] fraction] [facility] Comment on above: Order Comment: Specimen Type : ARTERIAL BLOOD SPECIMENOrdering Facility: [facility] Address: [address] [place] [address] Performed By: #### ALLBG ### #[facility]ORATORYCLIA [id number] [place] [address] [facility] 10-18-2022 Body temperature 96.8 [degF] Panfilo Oreilly MD [facility] 10:41050 Work Phone: 10-18-2022 Body weight 178.9 kg Panfilo Oreilly MD [facility] 10:410500 Work Phone: 10-18-2022 Diastolic blood 70 mm[Hg] Panfilo Oreilly MD [facility] 10:41050 pressure Work Phone: 10-18-2022 Heart rate 100 /min Panfilo Oreilly MD [facility] 10:410500 Work Phone: 10-18-2022 Respiratory rate 20 /min Panfilo Oreilly MD [facility] 10:410500 Work Phone: 10-18-2022 SaO2% (BldA) [Mass 97 % Panfilo Oreilly MD [facility] 10:410500 fraction] Work Phone: 10-18-2022 Systolic blood 124 mm[Hg] Panfilo Oreilly MD [facility] 10:410500 pressure Work Phone: 07-23-2022 Body height 166.4 cm Berenice Bauman MD [facility] 10: Work Phone: 07-23-2022 Body temperature 98.2 [degF] Berenice Bauman MD [facility] 10: Work Phone: 07-23-2022 Body weight 176.45 kg Berenice Bauman MD [facility] 10: Work Phone: 07-23-2022 Diastolic blood 71 mm[Hg] [facility] 10: pressure Work Phone: 07-23-2022 Heart rate 103 /min Berenice Bauman MD [facility] 10: Work Phone: 07-23-2022 SaO2% (BldA) [Mass 92 % Berenice Bauman MD [facility] 10:040 fraction] Work Phone: 07-23-2022 Systolic blood 136 mm[Hg] Berenice Bauman MD [facility] in 10: pressure Work Phone: 03-19-2022 Body weight 168.65 kg Hallie Martinez CLUBHOUSE MANAGER.NIKIA [facility] 10: Work Phone: 03-19-2022 Diastolic blood 82 mm[Hg] Hallie Carmonalogericka CLUBHOUSE MANAGERMUMTAZ [facility] 10: pressure Work Phone: 03-19-2022 Heart rate 83 /min Hallie Podlogar CLUBHOUSE MANAGER.ANESTHESIOLOGY RESIDENT [facility] 10: Work Phone: 03-19-2022 Respiratory rate 20 /min Hallie Podlogar CLUBHOUSE MANAGER.ANESTHESIOLOGY RESIDENT [facility] 10: Work Phone: 03-19-2022 SaO2% (BldA) [Mass 97 % Hallie Podlogar CLUBHOUSE MANAGER.CN P [facility] 10: fraction] Work Phone: 03-19-2022 Systolic blood 140 mm[Hg] Hallie Podlogar CLUBHOUSE MANAGER.ANESTHESIOLOGY RESIDENT [facility] 10: pressure Work Phone: Encounters Encounter Date Encounter Type Care Provider Facility Start: 02-26-2023 Home visit Karyn Vernon [facility] linic Home Care End: 02-26-2023 Work Phone: Comment on above: [facility] [employer] Start: 02-25-2023 Home visit Karyn Vernon [facility] linic Home Care End: 02-25-2023 Work Phone: Comment on above: [facility] [employer] Start: 02-24-2023 Telephone encounter Panfilo Guzman [facility] Work Phone: [place] Comment on above: Patient Update Start: 02-23-2023 Home visit Zahra Jackson RN [facility] rebecca [facility] Care End: 02-23-2023 Work Phone: Comment on above: SN SOC Start: 02-21-2023 [facility] Work Phone: [facility] Start: 02-21-2023 Telephone encounter Panfilo Oreilly MD F [facility] Medicine Work Phone: [place] Comment on above: Fax last Office Vist Notes Transition Of Care (TCM Phar martin-Hospital discharge 02/20/23) Transition Of Care (TCM Init ial [facility] Discharge 02/20/23/) Start: 02-20-2023 Telephone encounter [facility] Comment on above: Home Care (MD to follow) Start: 02-19-2023 Telephone encounter Panfilo Oreilly MD [facility] Work Phone: [place] Comment on above: Results Start: 02-19-2023 Evaluation and PANFILO OREILLY Facility :[facility] End: 02-20-2023 management of inpatient Start: 02-18-2023 ambulatory PANFILO OREILLY Facility :[place] End: 02-19-2023 [facility] Start: 02-18-2023 Patient encounter Panfilo Oreilly MD [facility] Medicine [place] End: 02-19-2023 procedure Work Phone: Comment on above: Abscess of groin, left (Prim shaina Dx); Non-healing open wound of le ft groin, initial encounter; Necrotizing soft tissue infe ction; Cellulitis of skin; Type 2 diabetes mellitus wit h diabetic polyneuropathy, with long-term current use of insulin (HCC) Start: 02-04-2023 Telephone encounter Panfilo Oreilly MD [facility] Medicine Work Phone: [place] Comment on above: [facility] PT Order Request Start: 02-03-[address] [facility] Medicine [place] Work Phone: Comment on above: Refill Request Start: 01-30-2023 Telephone encounter Panfilo Oreilly MD [facility] Medicine Work Phone: [place] Comment on above: Appointment Start: 01-28-2023 [facility] Start: 01-28-2023 Follow-up encounter Raquel Payne RN Ambul atory Care Management Comment on above: Transition Of Care (TCM foll ow up/) Start: 01-21-2023 Telephone encounter Panfilo Oreilly MD [facility] Work Phone: [place] Comment on above: Penitentiary Start: 01-20-2023 Telephone encounter Brandi Fernando MD [facility] Work Phone: [facility] Comment on above: Refill Request Start: 01-17-2023 Patient Outreach Brissa Kilpatrick [facility] acy Work Phone: Comment on above: Transition Of Care (TCM Phar juan-Hospital discharge 01/16/23) Start: 01-15-2023 Telephone encounter Panfilo Oreilly MD [facility] Work Phone: [place] Comment on above: Patient Update Start: 01-14-2023 ambulatory Mimi Crowley RN [facility]GERS Start: 01-14-2023 Follow-up encounter Mimi Crowley RN Ambulat ory Care Management Comment on above: Transition Of Care (TCM foll ow-up readmitted to hospital) Start: 01-14-2023 Telephone encounter Panfilo Oreilly MD [facility] Work Phone: [place] Comment on above: Appointment Start: 01-13-2023 Evaluation and HUBERT LEBLANC Facility:[facility] End: 01-16-2023 management of inpatient Start: 01-13-2023 ambulatory PANFILO OREILLY Facility :[facility] End: 01-13-2023 Start: 01-12-2023 Emergency department PANFILO OREILLY [facility] ility:[facility] End: 01-13-2023 patient visit Start: 01-06-2023 Orders Only Panfilo Arizmendi MD [facility] Work Phone: Comment on above: Necrotizing soft tissue infe ction Medication Request Patient Update Start: 01-03-2023 Refill Panfilo Oreilly MD [facility] Work Phone: Comment on above: Refill Request Start: 01-02-2023 Patient Outreach Brissa Kilpatrick [facility] Work Phone: Comment on above: Transition Of Care (TCM Phar juan-Hospital discharge 01/01/23) Transition Of Care (TCM init ial outreach-dc'd from [facility] 01/01/23) Missed Appointment (Pharmacy visit reschedule) Start: 12-31-2022 Refill Panfilo Oreilly MD [facility] [place] Work Phone: Comment on above: Refill Request Start: 12-27-2022 Refill Anabella Gaines CLUBHOUSE MANAGER.ANESTHESIOLOGY RESIDENT [facility] [place] Work Phone: Comment on above: Refill Request Start: 12-26-2022 Telephone encounter Panfilo Oreilly MD [facility] Work Phone: [place] Comment on above: Patient Update Start: 12-25-2022 ambulatory [place] CLUBHOUSE MANAGER.ANESTHESIOLOGY RESIDENT [facility] are Work Phone: Start: 12-25-2022 Evaluation and PANFILO OREILLY Facility :[place] End: 01-01-2023 management of General inpatient Start: 12-24-2022 Telephone encounter Panfilo Oreilly MD [facility] Work Phone: [place] Comment on above: Patient Update Start: 12-12-2022 Refill Panfilo Oreilly MD [facility] [place] Work Phone: Comment on above: Refill Request Medication Problem Start: 12-11-2022 ambulatory PANFILO OREILLY Facility [facility] End: 12-11-2022 Start: 12-05-2022 Telephone encounter Robertlara Frostgo [facility] Pharm Med Clinic Work Phone: Comment on above: Missed Appointment Start: 11-27-2022 Refill Panfilo Oreilly MD [facility] [place] Work Phone: Comment on above: Refill Request Start: 11-11-2022 ambulatory PANFILO Saul Facility:[facility] End: 11-11-2022 [facility] Start: 11-11-2022 Telephone encounter Panfilo Oreilly MD [facility] [place] Work Phone: Comment on above: Results Start: 11-08-2022 ambulatory PANFILO Saul Facility:[facility] End: 11-09-2022 [facility] Start: 11-08-2022 ambulatory AURELIANO Dorys Facility:[facility] End: 11-08-2022 [facility] Start: 11-08-2022 Patient encounter Panfilo Arciniega [facility] [place] End: 11-08-2022 procedure Work Phone: Comment on above: Strep pharyngitis (Primary D x); Reactive airway disease with acute exacerbation, unspecified asthma severity, unspecified whether persistent; Tremor; LOGAN treated with BiPAP; Morbid obesity (HCC); Type 2 diabetes mellitus wit h diabetic polyneuropathy, with long-term current use of insulin (HCC); Episodic lightheadedness; Dehydration Start: 11-06-2022 ambulatory PANFILO Sual Facility:[facility] End: 11-06-2022 [facility] Start: 11-06-2022 Patient encounter [facility] End: 11-06-2022 procedure Work Phone: Comment on above: Onychomycosis (Primary Dx); Pain in toe of left foot; Pain in toe of right foot; Other diabetic neurological complication associated with type 2 diabetes mellitus (HCC); Hyperkeratosis; Chronic venous insufficiency ; Diminished pulses in lower e xtremity Start: 11-05-2022 Telephone encounter Panfilo Oreilly MD [facility] Work Phone: [place] Comment on above: Orders Start: 10-30-2022 ambulatory [facility] Med Clin ic End: 10-30-2022 Work Phone: Comment on above: Type 2 diabetes mellitus wit h diabetic polyneuropathy, with long-term current use of insulin (HCC) (Primary Dx); History of tobacco use Start: 10-30-2022 Telemedicine [facility] End: 10-30-2022 consultation with Work Phone: patient Start: 10-22-2022 Telephone encounter Panfilo Oreilly MD [facility] Work Phone: [place] Comment on above: Patient Update Start: 10-21-2022 Telephone encounter Panfilo Oreilly MD [facility] Work Phone: [place] Comment on above: Results (No answer and VM no t set up. QuNano message sent to request patient call in for results on Lab and xray.) Start: 10-18-2022 ambulatory HODANASAD Dorys Facility:[facility] End: 10-18-2022 [facility] Start: 10-18-2022 ambulatory [facility] Facility:[facility] End: 10-18-2022 [facility] Start: 10-18-2022 Telephone encounter Panfilo Oreilly MD [facility] [place] Work Phone: Comment on above: Prescription Clarification Start: 10-18-2022 [facility] End: 10-18-2022 [facility] Start: 10-18-2022 Patient encounter Panfilo Oreilly MD [facility] End: 10-18-2022 procedure Work Phone: Comment on [...] Refill Panfilo Oreilly MD [facility] [place] Work Phone: Comment on above: Refill Request Start: 09-09-2022 Telephone encounter Panfilo Oreilly MD [facility] Medicine Work Phone: [place] Comment on above: Medication Problem Start: 09-05-2022 ambulatory PANFILO OREILLY Facility :[facility] End: 09-06-2022 Hospital Start: 08-27-2022 Refill Panfilo Oreilly MD [facility] [place] Work Phone: Comment on above: Refill Request Start: 08-01-2022 ambulatory [facility] Pharm Med Clin ic End: 08-02-2022 Work Phone: Comment on above: Diabetes resources Type 2 diabetes mellitus wit h diabetic polyneuropathy, with long-term current use of ins ulin (HCC) (Primary Dx) Start: 08-01-2022 E-mail encounter from [facility] caregiver Work Phone: Start: 08-01-2022 Telemedicine [facility] [place] End: 08-01-2022 consultation with Work Phone: patient Start: 07-24-2022 Refill Panfilo Oreilly MD [facility] Work Phone: [place] Comment on above: Refill Request Start: 07-23-2022 ambulatory [facility] Facility:[facility] End: 07-23-2022 [facility] Start: 07-23-2022 Patient encounter Berenice Bauman MD General Surgery End: 07-23-2022 procedure Work Phone: Comment on above: Screening for colon cancer ( Primary Dx); Chest pain, unspecified type ; Morbid obesity (HCC) Start: 07-15-2022 [facility] Facility:[facility] End: 07-15-2022 [facility] Start: 07-11-2022 Telephone encounter [facility] Work Phone: Comment on above: Appointment Start: 07-09-2022 Telephone encounter Panfilo Oreilly MD [facility] Work Phone: [place] Comment on above: Medication Problem (Patient requesting all RX's for medications and diabetic supplies be sent to [facility] in [place].) Start: 07-09-2022 [facility] Facility :[facility] End: 07-09-2022 Hospital Start: 07-05-2022 Refill Hallie Martinez APRN.CNP [facility] [place] Work Phone: Comment on above: Refill Request; [...] 06/18/22) Start: 2022 Telephone encounter Robert Sanchez [facility] Med [facility] Work Phone: Comment on above: Missed Appointment Refill Request Start: 06-13-2022 Telephone encounter Robert Sanchez [facility] Work Phone: Comment on above: Missed Appointment Erroneous encounter-disregar d Start: 06-05-2022 Refill Panfilo Oreilly MD [facility] [place] Work Phone: Comment on above: Refill Request Start: 05-29-2022 ambulatory Panfilo Oreilly MD [facility] Medicine [place] Work Phone: [place] Start: 05-02-2022 ambulatory Robert Sanchez [facility] Med Clin ic End: 05-03-2022 Work Phone: Comment on above: Type 2 diabetes mellitus wit h diabetic polyneuropathy, with long-term current use of ins ulin (HCC) (Primary Dx) Start: 05-02-2022 Telemedicine Robert Sanchez [facility] [place] End: 05-02-2022 consultation with Work Phone: patient Start: 05-01-[address] [facility] Medicine Work Phone: [place] Comment on above: Refill Request Start: 04-09-2022 Telephone encounter Panfilo Oreilly MD [facility] Medicine Work Phone: [place] griffin Comment on above: Patient Update Start: 04-03-2022 Telephone encounter Robert Sanchez [facility] Work Phone: Comment on above: Diabetes Start: 03-29-2022 Telephone encounter Robert Sanchez [facility] Work Phone: Comment on above: Medication Problem Start: 03-28-2022 Telephone encounter Panfilo Oreilly MD [facility] Work Phone: [place] Comment on above: Patient Update; Medication R equest Start: 03-28-2022 ambulatory PANFILO OREILLY Facility :[facility] End: 03-29-2022 Hospital Start: 03-28-2022 ambulatory [facility] Med Clin ic End: 03-28-2022 Work Phone: Comment on above: Type 2 diabetes mellitus wit h diabetic polyneuropathy, with long-term current use of ins ulin (HCC) (Primary Dx) Start: 03-28-2022 Telemedicine [facility] End: 03-28-2022 consultation with Work Phone: patient Start: 03-20-2022 Telephone encounter Hallie Martinez CLUBHOUSE MANAGER.NIKIA [facility] Work Phone: [place] Comment on above: Results Start: 03-19-2022 ambulatory HALLIE PODLOGAR Facility:[facility] End: 03-19-2022 Hospital Start: 03-19-2022 ambulatory HALLIE PODLOGAR Facility:[facility] End: 03-20-2022 Hospital Start: 03-19-2022 Patient encounter Hallie Carmonalogericka CLUBHOUSE MANAGER.NIKIA [facility] [place] End: 03-19-2022 procedure Work Phone: Comment on above: Type 2 diabetes mellitus wit h diabetic polyneuropathy, with long-term current use of insulin (HCC) (Primary Dx); Dysuria; LOGAN (obstructive sleep apnea ); Essential hypertension; Chronic respiratory failure with hypoxia (HCC); Hyperlipidemia, unspecified hyperlipidemia type Start: 03-05-2022 Telephone encounter Panfilo Guzman [facility] Work Phone: [place] Comment on above: insurance requests change in sulin Start: 01-29-2022 Telephone encounter Panfilo Guzman [facility] Work Phone: [place] Comment on above: Patient Request Start: 01-25-2022 Telephone encounter Hallie Martinez CLUBHOUSE MANAGER.NIKIA [facility] Work Phone: [place] Comment on above: medication instructions Patient Request Medication Question Start: 01-23-2022 Telephone encounter Hallie Martinez CLUBHOUSE MANAGER.NIKIA [facility] Work Phone: [place] Comment on above: Orders Start: 01-14-2022 Refill Panfilo Oreilly MD [facility] [place] Work Phone: Comment on above: Refill Request (SEE RX NOTES ) Start: 06-19-2021 Telephone encounter [facility] Work Phone: [place] Comment on above: Insurance Authorization (Neno Gore) Procedures Date Procedure Procedure Detail Performing Clin ician Start: 02-18-2023 Cul bact xcpt urine Tino Oreilly MD blood/stool aerobic isol Work Ph one: Start: 12-25-2022 Antibody screen PANFILO BARRAZA Comment on above: Order Comment: Specimen Type : BLOOD SPECIMENOrdering Facility: [facility] Address: [address] [place] [id number] Performed By: #### TSCR #### [facility] BLOOD BANKCLIA [id number] [place] [address] [facility] Start: 07-15-2022 Echocardiography PANFILO VU Start: 03-19-2022 Urnls dip stick/tablet rgnt auto w/o Hallie Podlogar CLUBHOUSE MANAGER.ANESTHESIOLOGY RESIDENT microscopy Work Phone: Start: 02-14-2021 Adult depression screening assessment Panfilo Oreilly MD Work Phone: Start: 10-09-2017 Mammography Panfilo barraza MD Work Phone: Plan of Treatment Date Care Activity Detail Author Start: PNEUMOCOCCAL (3 - PPSV23 PNEUMOCOCCAL (3 - [facility] 2042 if available, else PCV20) PPSV23 if available, else PCV20) Start: PNEUMOCOCCAL (3 - PPSV23 PNEUMOCOCCAL (3 - [facility] 2042 or PCV20) PPSV23 or PCV20) Start: Urine microalbumin DTAP,TDAP,TD (2 - Td or [facility] 07-01-2027 profile Tdap) Start: ANNUAL PCP TEAM CHRONIC ANNUAL PCP TEAM CHRONIC [facility] 02-19-2024 DISEASE VISIT DISEASE VISIT Start: BP CONTROLLED (<130/80) BP CONTROLLED (<130/80) [facility] 02-19-2024 Start: Hepatitis B surface LDL CHOLESTEROL [facility] 02-19-2024 antibody level Start: BP CONTROLLED (<130/80) BP CONTROLLED (<130/80) [facility] 01-13-2024 Start: 3 comp foot exam DIABETIC FOOT EXAM [facility] 12-25-2023 completed Start: ANNUAL PCP TEAM CHRONIC ANNUAL PCP TEAM CHRONIC [facility] 11-08-2023 DISEASE VISIT DISEASE VISIT Start: BP CONTROLLED (<130/80) BP CONTROLLED (<130/80) [facility] 11-08-2023 Start: ANNUAL PCP TEAM CHRONIC ANNUAL PCP TEAM CHRONIC [facility] 10-18-2023 DISEASE VISIT DISEASE VISIT Start: BP CONTROLLED (<130/80) BP CONTROLLED (<130/80) [facility] 10-18-2023 Start: 3 comp foot exam DIABETIC FOOT EXAM [facility] 07-09-2023 completed Start: ANNUAL PCP TEAM CHRONIC ANNUAL PCP TEAM CHRONIC [facility] 07-09-2023 DISEASE VISIT DISEASE VISIT Start: Hepatitis B screening URINE [facility] 07-09-2023 ALBUMIN:CREATININE RATIO Start: Hemoglobin HBA1C [facility] 05-21-2023 A1c/Hemoglobin.total in Blood Start: HPV TESTING HPV TESTING [facility] 04-30-2023 Start: PAP TESTING PAP TESTING [facility] 04-30-2023 Start: ANNUAL PCP TEAM CHRONIC ANNUAL PCP TEAM [facility] 03-19-2023 DISEASE VISIT DISEASE VISIT Start: Hemoglobin HBA1C [facility] 02-09-2023 A1c/Hemoglobin.total in Blood Start: Hemoglobin HBA1C [facility] 02-06-2023 A1c/Hemoglobin.total in Blood Start: 3 comp foot exam DIABETIC FOOT EXAM [facility] 01-23-2023 completed Start: ANNUAL PCP TEAM CHRONIC ANNUAL PCP TEAM CHRONIC [facility] 01-23-2023 DISEASE VISIT DISEASE VISIT Start: BP CONTROLLED (<130/80) BP CONTROLLED (<130/80) [facility] 01-23-2023 Start: BP CONTROLLED (<130/80) BP CONTROLLED (<130/80) [facility] 12-12-2022 Start: Hepatitis B surface LDL CHOLESTEROL [facility] 12-12-2022 antibody level Start: DEPRESSION ASSESSMENT DEPRESSION ASSESSMENT [facility] 12-01-2022 Start: 11-18-2022 Comprehensive metabolic COMP METABOLIC PANEL C [facility] End: 01-18-20231999 panel - Serum or Lab Routine KERRY (acute Wor k Phone: Plasma kidney injury) (HCC) Expected: 11/18/2022, Expires: 01/18/2023 Comment on above: Expected: 11/18/2022, s: 01/18/2023 Start: 10-31-2022 Basic metabolic BASIC METABOLIC PNL Lab [facility] End: 12-31-20221999 panel - Serum Routine Type 2 diabetes Work Phone: or Plasma mellitus with diabetic polyneuropathy, with long-term current use of insulin (HCC) Expected: 10/31/2022, Expires: 12/31/2022 Comment on above: Expected: 10/31/2022, s: 12/31/2022 Start: 10-09-2022 Hemoglobin HBA1C [facility] A1c/Hemoglobin.total in Blood Start: 08-01-2022 Hepatitis B screening URINE [facility] ALBUMIN:CREATININE RATIO Start: 08-01-2022 Influenza vaccination INFLUENZA (#1) [facility] Start: 2022 COLOGUARD (FIT-DNA) COLOGUARD (FIT-DNA) [facility] Start: 2022 Colonoscopy COLONOSCOPY [facility] Start: 2022 COLORECTAL CANCER SCREENING COLORECTAL CANCER [facility] SCREENING Start: [address] COLONOGRAPHY [facility] Start: 2022 FECAL OCCULT BLOOD FECAL OCCULT BLOOD [facility] Start: 2022 SIGMOIDOSCOPY SIGMOIDOSCOPY [facility] Start: 06-18-2022 Hemoglobin [facility] End: 08-18-2022 A1c/Hemoglobin.total in Blood Comment on above: Expected: 06/18/2022, s: 08/18/2022 Start: 03-19-2022 Comprehensive metabolic 2000 panel [facility] End: 05-19-2022 - Serum or Plasma Work Phone: Comment on above: Expected: 03/19/2022, s: 05/19/2022 Start: 03-19-2022 Hemoglobin A1c/Hemoglobin.total in [facility] End: 05-19-2022 Blood Work Phone: Comment on above: Expected: 03/19/2022, s: 05/19/2022 Start: 03-15-2022 COVID-19 VACCINE (3 - COVID-19 VACCINE (3 - [facility] Booster for Damir Booster for Damir series) series) Start: 03-12-2022 Hemoglobin HBA1C [facility] A1c/Hemoglobin.total in Blood Start: 02-14-2022 Adult depression DEPRESSION SCREENING [facility] screening assessment Start: 12-01-2021 DEPRESSION ASSESSMENT DEPRESSION ASSESSMENT [facility] Start: 10-09-2018 Mammography MAMMOGRAM [facility] Start: 08-31-2016 TWO PNEUMOVAX 5 YEARS TWO PNEUMOVAX 5 YEARS [facility] APART PRIOR TO AGE 65 APART PRIOR TO AGE 65 (#2) (#2) Start: 1996 HEPATITIS B (1 of 3 - HEPATITIS B (1 of 3 - [facility] Risk 3-dose series) Risk 3-dose series) Start: 1987 Hepatitis C antibody, DILATED RETINAL EXAM [facility] confirmatory test Start: 1977 HEPATITIS B (1 of 3 - HEPATITIS B (1 of 3 - [facility] 3-dose series) 3-dose series) Bacteria identified in ABSCESS AND WOUND [facility] Wound by Culture CULTURE WITH GRAM STAIN Work Ph one: Microbiology Routine Abscess of groin, left Non-healing open wound of left groin, initial encounter 02/18/2023 12:05 PM EDT ECG COMPLETE ECG COMPLETE ECG [facility] End: 10-18-2023 Routine Acute diastolic Work Rupali ne: CHF (congestive heart failure) (HCC) Other chest pain 1 Occurrences starting 10/18/2022 until 10/18/2023 Comment on above: 1 Occurrences starting 10/18 until 10/18/2023 EPIL EEG ROUTINE EPIL EEG ROUTINE [facility] End: 11-08-2023 NEUROLOGY TACO Tremor 1 Work Rupali ne: Occurrences starting 11/08/2022 until 11/08/2023 Comment on above: 1 Occurrences starting 11/08 until 11/08/2023 NM CARDIAC PERF NM CARDIAC PERF [facility] End: 11-17-2023 STRESS/PHARM STRESS/PHARM Radiology Work Phon e: TACO Acute diastolic CHF (congestive heart failure) (HCC) 1 Occurrences starting 10/18/2022 until 11/17/2023 Comment on above: 1 Occurrences starting 10/18 until 11/17/2023 OCCULT BLD EXAM-DIAG OCCULT BLD EXAM-DIAG Microb iology [facility] Routine Screening for colon Work Phone: cancer Ordered: 07/23/2022 Comment on above: Ordered: 07/23/2022 PVR ANK PRESS TAY PVR ANK PRESS TAY [facility] End: 11-06-2023 VAS LAB Vascular Lab Routine Work Phone: Onychomycosis Other diabetic neurological complication associated with type 2 diabetes mellitus (HCC) Diminished pulses in lower extremity 1 Occurrences starting 11/06/2022 until 11/06/2023 Comment on above: 1 Occurrences starting 11/06 until 11/06/2023 Screening mammography SHERYL SCREENING [facility] End: 06-28-2023 bi 2-view breast inc Radiology Routine Work Phon e: cad Encounter for screening mammogram for breast cancer 1 Occurrences starting 05/29/2022 until 06/28/2023 Comment on above: 1 Occurrences starting 05/29 until 06/28/2023 UA DIP, URINE (POC) UA DIP, URINE (POC) Lab Rout robbie [facility] Dysuria Ordered: 03/19/2022 Work Phone: Comment on above: Ordered: 03/19/2022 [facility] [place] OR [place] OR [facility] Immunizations Immunization Date Immunization Notes Care Provider Facility 12-12-2021 influenza, injectable, Panfilo nuñez MD [facility] quadrivalent, contains Work Phone: preservative 08-31-2020 influenza, injectable, Panfilo nuñez MD [facility] quadrivalent, contains Work Phone: preservative 08-31-2020 pneumococcal conjugate Panfilo nuñez MD [facility] vaccine, 13 valent Work Phone: 11-12-2019 influenza, injectable, Panfilo nuñez MD [facility] quadrivalent, contains Work Phone: preservative 12-16-2018 influenza, seasonal, Panfilo Oreilly MD [facility] injectable, preservative Work Phone: free 09-11-2017 influenza, seasonal, Panfilo Oreilly MD [facility] injectable Work Phone: 09-11-2017 influenza, seasonal, Panfilo Oreilly MD [facility] injectable, preservative Work Phone: free 07-01-2017 tetanus toxoid, reduced Panfilo chadwick MD [facility] diphtheria toxoid, and Work Phone: acellular pertussis vaccine, adsorbed 12-20-2013 influenza, seasonal, Panfilo Oreilly MD [facility] injectable Work Phone: 12-20-2013 influenza, seasonal, Panfilo Oreilly MD [facility] injectable, preservative Work Phone: free 08-31-2011 pneumococcal Panfilo Oreilly MD [facility] polysaccharide vaccine, Work Phone: 23 valent Payers Date Payer Category Payer Medicaid [employer] [id number] [facility] MEDICAID [id number] 2022-Present [phone] [place] [address] Medicaid 2022 Medicaid [employer] [id number] [employer] [id number] 2022-2022 [id number] [phone] [address] [place] [address] Medicaid 2022 Medicare [id number] 2022 Medicare [id number] 2022 Medicare [id number] 2022 Medicaid MEDICAID [facility] MEDICAID [id number] 2022-2022 [id number] [address] [place] [address] Medicaid 2021 Medicare MEDICARE MEDICARE A AND B [id number] 2021-2021 [id number] [address] [place] [address] Medicare Social History Date Type Detail Facility Start: 08-25-2019 Tobacco smoking status Smokes tobacco [facility] End: 11-06-2022 [facility] History of tobacco use Cigarette Smoker [facility] End: 09-08-2017 Start: 08-25-2019 Cigarettes smoked current 1 [facility] End: 01-13-2023 (pack per day) - Reported Start: 08-25-2019 Tobacco use and exposure Smokeless tobacco Aris reeder [facility] End: 01-13-2023 non-user Start: 12-12-2021 Alcohol intake Current drinker of [place] Juan José nesbitt End: 11-06-2022 alcohol (finding) Start: 04-03-2017 History SDOH Alcohol rarely [facility] Comment Start: 1975 Sex Assigned At Not on file [facility] Start: 01-06-2022 Exposure to SARS-CoV-2 Not sure [facility] End: 10-18-2022 (event) Start: 01-23-2022 Tobacco smoking status Ex-smoker [facility] End: 01-13-2023 [facility] Start: 01-23-2022 Tobacco Comment d/c x2 wks [facility] ic End: 07-09-2022 Start: 04-03-2017 Tobacco Comment failed patches in the [facility] past History of tobacco use Current smoker [facility] Start: 07-22-2022 Exposure to SARS-CoV-2 Yes [facility] End: 08-01-2022 (event) Start: 08-23-2022 Exposure to SARS-CoV-2 Unable to assess [facility] End: 09-02-2022 (event) Start: 10-17-2022 History SDOH Alcohol 1 [facility] End: 01-15-2023 Frequency Start: 10-17-2022 History SDOH Alcohol Std 0 [facility] End: 11-02-2022 Drinks Start: 10-17-2022 History SDOH Social 5 [facility] End: 01-15-2023 Connections Phone Start: 10-17-2022 History SDOH Social 2 [facility] End: 01-15-2023 Connections Get Together Start: 10-17-2022 History SDOH Social 7 [facility] End: 11-02-2022 [facility] Living Start: 10-17-2022 History SDOH Physical 3 [facility] End: 11-02-2022 Activity DPW Start: 10-17-2022 History SDOH Financial 4 [facility] Start: 01-14-2023 Alcohol intake Ex-drinker (finding) [facility] End: 02-18-2023 Medical Equipment Procedure [...] migh t be different from the original. [facility] Notes 02/26/23 2;44 PM - 2:47 PM LS W called the pt. regarding the taper machine requested orders for her to get a REGISTERED VASCULAR TECHNOLOGIST (RVT) to assist with bathing. The pt. stated she did not want a REGISTERED VASCULAR TECHNOLOGIST (RVT) once a week and wants her A olena hours under Waiver. COUNTY ADMINISTRATOR discussed that Brandy Ross [facility] Casino Host with [facility] discussed her getting the REGISTERED VASCULAR TECHNOLOGIST (RVT) until they find an Aide under Waiver. The pt. state d her daughter can assist her with bathing. The pt. stated that she received a phone call from [facility] regarding they needed the measurement for the lift chair. COUNTY ADMINISTRATOR di scussed that Brandy was senin g the measurements to Elaine and COUNTY ADMINISTRATOR could follow- up. The pt. stated Elaine was waiting on an Email with the measurements. The pt. supportive of that. The pt. to call COUNTY ADMINISTRATOR with any needs. 02/26/23 2:49 PM - 2:51 PM LS W called Brandy Ross [facility] Casino Host with [employer] on [facility] and left her a message that COUNTY ADMINISTRATOR spoke to the pt. and the taper machine messaged the D r. regarding the pt. getting a REGISTERED VASCULAR TECHNOLOGIST (RVT) for bathing assist. The pt. does not want the REGISTERED VASCULAR TECHNOLOGIST (RVT) and stated her daughter could assist her with bathing. The pt. stated that [facility] called her and needing the measurements for her to get her lift chair. The pt. waiting to get the Aide under Waiver. COUNTY ADMINISTRATOR left her name and phone number. documented in this encounter 02-26-2023 Note [facility] 02-25-2023 Miscellaneous Formatting of this note migh t be different from the original. [facility] Notes 02/25/23 2:49 PM - 2:54 PM JORGE LUIS W received a phone call back from Brandy [facility] Waiver Casino Host with [employer] on Aging. She stated she is following-up wi th the regarding if ordsigifredo r faxed to a [employer] for the pt. to get a scooter. She stated she saw the pt. yesterday and got the measurements for the pt. to get a lif chair and is working with [facility] for the lift chair. The pt. receives Home Delivered Meals. The pt. to get an ER Medical Alert and Brandy stated they had been trying to reach the pt. and she informed the pt. to answer her phone . Brandy is trying to find an Aide for the pt. She stated she told the pt. to ask about getting a REGISTERED VASCULAR TECHNOLOGIST (RVT) to assist with bathing until she could get an Aide under Waiver. PER informed Brandy that PER will atilio k with the taper machine r egarding a REGISTERED VASCULAR TECHNOLOGIST (RVT) for the pt. PER will continue to coordinate with Brandy as needed. 02/25/23 3:03 PM PER Emailed Bharat Gardner RN Case Manager - Aung, the pt. Macario Overton is on Waiver and her Waiver Casino Host asked about the pt. getting a REGISTERED VASCULAR TECHNOLOGIST (RVT) until she would get an Aide under Waiver. They cannot find a n Aide for the pt. yet. Thanks, documented in this encounter 02-25-2023 Miscellaneous Formatting of this note migh t be different from the original. [facility] Notes 02/25/23 10:00 AM - 10:06 AM COUNTY ADMINISTRATOR called [facility] and spoke to Fabienne Stevens regarding who the pt.'s Waiver Casino Host was and she stated Brandy Ross with [employer] [facility] # [phone]. Fabienne stated she could transfer COUNTY ADMINISTRATOR to Brandy. COUNTY ADMINISTRATOR was transferred and COUNTY ADMINISTRATOR left [facility] Casino [facility] a message that the pt. was active with [facility] 02/23 for Nursing. COUNTY ADMINISTRATOR stated she was calling to coordinate thw pt.'s care and her services in the home. The pt. asking about an Aide. power wheelchair and lift chair. COUNTY ADMINISTRATOR left her name and phone number for Brandy to call COUNTY ADMINISTRATOR back. 02/25/23 10:06 AM - 10:11 AM COUNTY ADMINISTRATOR called the pt. regarding COUNTY ADMINISTRATOR called her [facility] Waiver Casino Host Brandy Ross and left her a message. The pt. stated that Brnady came to see her yesterday. S he stated that Brandy is tryi ng to find her an Aide. COUNTY ADMINISTRATOR asked about the power wheelchair and lift chair. The pt. stated Brandy is looking into equipment for her, also. COUNTY ADMINISTRATOR asked the pt. if she received H ome Delivered Meals and she stated that she did. COUNTY ADMINISTRATOR asked the pt. if she had an ER Medical Alert and she stated that Brandy was ordering her one. COUNTY ADMINISTRATOR asked the pt. if she was new on Waiver and she state d she has been on Waiver for a couple of months. COUNTY ADMINISTRATOR asked the pt. if she had needed transportation to medical appointments. She stated if her daughter does not take her she uses transportation under he r [employer]. COUNTY ADMINISTRATOR p rovided the pt. with her name and phone number to call with any needs. COUNTY ADMINISTRATOR will follow-up with her. 02/25/[address] Fela Oreilly - COUNTY ADMINISTRATOR called the pt. regarding COUNTY ADMINISTRATOR called her [facility] Casino Host Brandy Ross and left her a message. The pt. stated that Brandy came to see her yesterday. She stat ed that Brandy is trying to find her an Aide. COUNTY ADMINISTRATOR asked about the power wheelchair and lift chair. The pt. stated Brandy is looking into equipment for her, also. COUNTY ADMINISTRATOR asked the pt. if she received Home Del ivered Meals and she stated that she did. COUNTY ADMINISTRATOR asked the pt. if she had an ER Medical Alert and she stated that Brandy was ordering her one. COUNTY ADMINISTRATOR asked the pt. if she was new on Waiver and she stated she h as been on Waiver for a couple of months. COUNTY ADMINISTRATOR asked the pt. if she had needed transportation to medical appointments. She stated if her daughter does not take her she uses tr ansportation under her [facility] Medicaid. COUNTY ADMINISTRATOR provided the pt. with her name and phone number to call with any needs. COUNTY ADMINISTRATOR will follow-up with her. Brandy Ross [facility] Casino Host w [facility] [phone]. Thank You, documented in this encounter 02-24-2023 Note [facility] 02-24-2023 Note HNO ID: [id number] [facility] Author: Panfilo Oreilly MD [facility] and Service: ? Author Type: Physician Type: Progress Notes Filed: 02/24/2023 8:05 AM Note Text: Reviewed. Needs to schedule TCM appointm ent still. 02-24-2023 Miscellaneous Formatting of this note migh t be different from the original. [facility] Notes Reviewed. Formatting of this note might be differe nt from the original. FYI: Brandy, Casino Host [facility] called to let you know pt returned home on 02-20-23 from [facility] and has skilled care thru [facility] for wound care management. Keyonna Gross LPN documented in this encounter 02-23-2023 Miscellaneous Formatting of this note migh t be different from the original. [facility] Notes SITUATION: Penitentiary SOC visit co mpleted today. Friend and [...] POC, visit set, and refe rral to DRILLER MACHINE, SN. See intervention summary for education d etails and skills performed. Plan of care and visit frequ ency established with patient and plan of care agreed upon. Patient demonstrated a need for further skilled SN services for chronic disease management & education, medication education, wound/skin care and safety. RECOMMENDATION: Visit Frequency: 2w2, 1w7 Need for additional services: Patient ag reeable to DRILLER MACHINE referrals. Additional concerns to be followed up on : NONE Next visit to focus on (be specific): wo udn care, DM, oxygen, edema documented in this encounter 02-21-2023 Note [facility] 02-21-2023 History of Present [facility] illness Narrative TRANSITIONAL CARE MANAGEMENT (TCM) COMMUNITY MONITORING PROGRAM Provider Action/FYI: Navigation Team Please assist with schedulin g TCM Hospital discharge follow up. TCM eligible through 03/06. Thank you [facility]- Friday Wound care: L groin wash wound [...] RN and I am calling from the [facility] on behalf of your PCP, [...] will s end your request to a production scheduler who will contact and assist you with that appointment. This will give you an opportunity to ask any questions or address any concerns you may have with your PCP. Inform the patient that if t hey have any questions or concerns prior to that appointment, to call their PCP's office right away. ACTION TAKEN: Patient desires an appointme nt - Routed to [facility] [[id number]] for scheduling telehealth visit (telephonic, virtual visit, [...] TCM Home Visit Referral Source of Stratification: [facility] Admission Status: Discharged Readmission Risk Score: 25 PAMELA Score: 4 Patient meets program referral criteria: No Patient does not qualify for High Risk TCM Home Visit program due to: Discharged home, does not meet program criteria Carlos Cline RN February 21, 2023 9:01 AM TRANSITIONAL CARE MANAG[facility]TCM[facility] Provider Action/FYI: Outreach attempt [...] idual subcutaneous gas. She was transferred to [facility] and surgery was consulted. Wound appears to [...] migh t be different from the original. [facility] Notes Robert from [facility] called and reports they received the orders and demographic sheet. Faxing over last OV note to fax # [phone]. documented in this encounter 02-21-2023 Note [facility] 02-21-2023 Note [facility] 02-21-2023 Miscellaneous Formatting of this note migh t be different from the original. [facility] Notes Yes, will sign. Formatting [...] clinicians may als o obtain orders from [facility] Virtualist Providers Thank you and we would be happy to answe r any questions. Geeta Munguia LPN 02/20/2023 3:40 PM documented in this encounter 02-21-2023 History of Present [facility] illness Narrative TRANSITION CARE MANAGEMENT [...] name and . Summary: -Pt discharged from [facility] on 02/20/23. -Medication review done: Ken [...] idual subcutaneous gas. She was transferred to [facility] and surgery was consulted. Wound appears to [...] once daily. flash glucose scanning reade r (VicariousSTYLE DOMENICO 14 DAY READER) 1 Device four [...] 50 points >150; TDD 150 units) Insulin [place], Disposable, (BD ULTRA-FINE GABINO PEN NEEDLE) 32 [...] for 10 doses. 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 Overton was started on an tibiotics for cellulitis and will continue on Bactrim and should continue a 5 day course at discharge WALKER ROLLATOR SEAT WITH 6 WHEELS - RE D Patient requires large seat Preferred pharmacy: e- [facility] [address] - [place] [address] - [address] [facility] [phone] [address] [facility] [address] [facility] [address] - [place] [id number] - [address] [facility] [phone] [address] [facility] [address] [id number] [place] [address] - [address] [facility] [phone] [id number] [address] [facility] [id number] [facility] [address] [place] [phone] Estimated Creatinine Clearance: 196.2 mL /min (based [...] AM documented in this encounter 02-20-2023 Note [facility] 02-19-2023 Miscellaneous Formatting of this note migh t be different from the original. [facility] Notes Tried reaching patient, cordelia [...] time. documented in this encounter 02-18-2023 Note [facility] 02-18-2023 History of Present [facility] illness Narrative Chief Complaint No chief complaint on file. HPI Macario Overton is a 47 year old female who presents here today for Hospital Discharge Follow up. Accompanied today by daughter and grand daughter. Patient admitted to [facility] fro m 12/25 to 01/01 [...] She was discharged in stable condition [facility] wound care and follow up in 2 [...] ordered as pt was activ e with [employer] HHC and [facility] [...] in ~ 1 weeks time. 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) Seeing Neurology Diastolic heart failure ([facility]) GERD (gastroesophageal reflux disease) History of abnormal cervical Pap smear History of tobacco use Hyperlipidemia Insomnia Microalbuminuria Morbid obesity ([facility]) Narcotic abuse ([facility]) Non-STEMI (non-ST elevated myocardial in farction) ([facility]) 2/2 respiratory illness LOGAN (obstructive sleep apnea) using CPAP, Dr. Dumont Pulmonary embolism ([facility]) Seasonal allergies Unspecified essential hypertension Previous [...] by mouth once daily. flash glucose sensor (Jammin JavaE DOMENICO 14 DAY SENSOR) kit 1 Each [...] wheezing/shortness of breath. Use over 5-15minutes. Insulin Hopwood, Disposable, (BD ULTRA-FINE GABINO PEN NEEDLE) 32 [...] which included preparing to see the patient, [id number] patient care, completing clinical documentation, obtaining and/or reviewing separately obtained history, performing a medically appropriate examination, counseling and educating the patient/family/caregiver, and ordering medications, tests, or procedures. Panfilo Oreilly MD documented in this encounter 02-04-2023 Miscellaneous Formatting of this note migh t be different from the original. [facility] Notes Josie, a [facility] nurse with [employer] calling to request Physical Therapy evaluation order for patient. States patient recently moved into a trailer and is having some difficulty getting around a nd also difficulty with endurance. Repor ts patient is on oxygen. Please call Josie back at [phone]. Thank you. documented in this encounter 02-03-2023 Note [facility] 02-03-2023 History of Present [facility] illness Narrative Per [facility] Eligibility report: patient meets [facility] criteria: MV >= 72 hours MICU stay. Discharge date prior to 01/06/2023 (01/30/2023 dashboard update); not contacted/enrolled in the PIRC Program for this 12/25-01/01/2023 [place] admission. PIR Enrollment Status [facility] Call Attempt None Enrolled in PIRC Program? No - Other documented in this encounter 02-03-2023 Miscellaneous Formatting of this note is d ifferent from the original. [facility] Notes Last appt: 11/08/22 - [...] migh t be different from the original. [facility] Notes Phoned patient and she [...] slot. documented in this encounter 01-28-2023 Note [facility] 01-28-2023 History of Present [facility] illness Narrative TRANSITION CARE MANAGEMENT (TCM) FOLLOW-UP NOTE Provider Action/MARSHALLI Called for TCM. No answer at this time. Voicemail box not set up, unable to leav e message. PCP 01/24 cancelled- rescheduled to 02/03 Patient identified by name and date of b irth: NO- no answer Summary: Pt discharged from [facility] on 01/16/23. Admitted for: Purulent drainage from wou nds. 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 [facility] Notes Zhane notified of providers message. Sandra Potts LPN Formatting of this note might be differe nt from the original. OK to resume group home. Keep f/u a ppointment as scheduled. Formatting of this note might be differe nt from the original. Zhane from [facility] calls to report that patient discharged from hospital on 01/16/2023. Zhane asking if it is ok to resume group home services with patient tomorrow 01/22/2023. Please review and advise, Georgina Samayoa RN documented in this encounter 01-20-2023 Miscellaneous Formatting of this note migh t be different from the original. [facility] Notes Pt given message, states she can't take ibuprofen and will continue with the tylenol. Margarita TOWNSEND Formatting of this note might be differe nt from the original. I&D tay groin abscesses on 1 01/14/23- pt requesting refill on oxycodone for dressing changes. Uses pharmacy listed in chart. Margarita TOWNSEND documented in this encounter 01-20-2023 Note [facility] 01-17-2023 Note [facility] 01-17-2023 Note [facility] 01-17-2023 Note [facility] 01-17-2023 History of Present [facility] illness Narrative TRANSITION CARE MANAGEMENT [...] name and . Summary: -Pt discharged from [facility] on 01/16/23. -Medication review done: Ken [...] Care ordered as pt was active with [employer] for [facility] and [facility] (prior [...] once daily. flash glucose scanning reade r (VicariousSTYLE DOMENICO 14 DAY READER) 1 Device four [...] Date Value 11/11/2022 10.1 12/12/2021 10.0 Insulin Hopwood, Disposable, (BD ULTRA-FINE GABINO PEN NEEDLE) 32 [...] days. Taking as prescribed without any issues [facility] - Dispensed potassium chloride 20 [...] days. Taking as prescribed without any issues [facility] - Dispensed WALKER ROLLATOR SEAT WITH 6 WHEELS - RE D Patient requires large seat Preferred pharmacy: [id number] - [place] [address] - [address] - [phone] [address] [facility] [id number] e- [employer] [facility] [place] - [id number] - [place] [address] - [address] [facility] - [phone] [address] [facility] [address] e- [id number] [place] [address] - [address] [facility] - [phone] [address] [facility] [address] [facility] [address] [address] Estimated Creatinine Clearance: 124.1 mL /min (based [...] migh t be different from the original. [facility] Notes Reviewed and agree. Formatting of this note might be differe nt from the original. Carolee from [facility] access [facility] and states that patient was directly admitted by her surgeon after appointment on 01/13/2023. Patient currently is in [facility]. When patient gets discharged asking fo r discharge paperwork to me faxed to [phone]. Georgina Samayoa, RN documented in this encounter 01-16-2023 Note [facility] 01-15-2023 Note [facility] 01-14-2023 Note [facility] 01-14-2023 Miscellaneous Formatting of this note migh t be different from the original. [facility] Notes Patient did not show [...] message. documented in this encounter 01-14-2023 Note [facility] 01-14-2023 Note [facility] 01-14-2023 History of Present [facility] illness Narrative TRANSITION CARE MANAGEMENT (TCM) FOLLOW-UP NOTE Provider Action/FYI Chart reviewed. Pt readmitte d to [facility] 01/13/23 for perineal wound infection. Name removed from Care Team d/t readmission. Signature Mimi Crowley RN January 14, 2023 documented in this encounter 01-13-2023 Note [facility] 01-13-2023 History of Past illness Narra tive Problem Noted Date Resolved Date Necrotizing fasciitis 01/13/2023 01/16/2023 Overview:Formatting of this note might b e different from the original. Pt did not have necrotizing fasciitis du ring this current hospitalization. Acute cholecystitis 11/06/2007 11/20/2021 documented as of this encounter (statuses as of 01/16/2023)[facility] 01-13-2023 History of Past illness Narrative Problem Noted Date Resolved Date Necrotizing fasciitis 01/13/2023 01/16/2023 Overview:Formatting of this note might b e different from the original. Pt did not have necrotizing fasciitis du ring this current hospitalization. Acute cholecystitis 11/06/2007 11/20/2021 documented as of this encounter (statuses as of 01/17/2023)[facility] 01-13-2023 History of Past illness Narrative Problem Noted Date Resolved Date Necrotizing fasciitis 01/13/2023 01/16/2023 Overview:Formatting of this note might b e different from the original. Pt did not have necrotizing fasciitis du ring this current hospitalization. Acute cholecystitis 11/06/2007 11/20/2021 documented as of this encounter (statuses as of 01/21/2023)[facility] 01-13-2023 History of Past illness Narrative Problem Noted Date Resolved Date Necrotizing fasciitis 01/13/2023 01/16/2023 Overview:Formatting of this note might b e different from the original. Pt did not have necrotizing fasciitis du ring this current hospitalization. Acute cholecystitis 11/06/2007 11/20/2021 documented as of this encounter (statuses as of 01/21/2023)[facility] 01-13-2023 History of Past illness Narrative Problem Noted Date Resolved Date Necrotizing fasciitis 01/13/2023 01/16/2023 Overview:Formatting of this note might b e different from the original. Pt did not have necrotizing fasciitis du ring this current hospitalization. Acute cholecystitis 11/06/2007 11/20/2021 documented as of this encounter (statuses as of 01/28/2023)[facility] 01-13-2023 History of Past illness Narrative Problem Noted Date Resolved Date Necrotizing fasciitis 01/13/2023 01/16/2023 Overview:Formatting of this note might b e different from the original. Pt did not have necrotizing fasciitis du ring this current hospitalization. Acute cholecystitis 11/06/2007 11/20/2021 documented as of this encounter (statuses as of 01/30/2023)[facility] 01-13-2023 History of Past illness Narrative Problem Noted Date Resolved Date Necrotizing fasciitis 01/13/2023 01/16/2023 Overview:Formatting of this note might b e different from the original. Pt did not have necrotizing fasciitis du ring this current hospitalization. Acute cholecystitis 11/06/2007 11/20/2021 documented as of this encounter (statuses as of 02/03/2023)[facility] 01-13-2023 History of Past illness Narrative Problem Noted Date Resolved Date Necrotizing fasciitis 01/13/2023 01/16/2023 Overview:Formatting of this note might b e different from the original. Pt did not have necrotizing fasciitis du ring this current hospitalization. Acute cholecystitis 11/06/2007 11/20/2021 documented as of this encounter (statuses as of 02/03/2023)[facility] 01-13-2023 History of Past illness Narrative Problem Noted Date Resolved Date Necrotizing fasciitis 01/13/2023 01/16/2023 Overview:Formatting of this note might b e different from the original. Pt did not have necrotizing fasciitis du ring this current hospitalization. Acute cholecystitis 11/06/2007 11/20/2021 documented as of this encounter (statuses as of 02/20/2023)[facility] 01-13-2023 History of Past illness Narrative Problem Noted Date Resolved Date Necrotizing fasciitis 01/13/2023 01/16/2023 Overview:Formatting of this note might b e different from the original. Pt did not have necrotizing fasciitis du ring this current hospitalization. Acute cholecystitis 11/06/2007 11/20/2021 documented as of this encounter (statuses as of 02/21/2023)[facility] 01-13-2023 History of Past illness Narrative Problem Noted Date Resolved Date Necrotizing fasciitis 01/13/2023 01/16/2023 Overview:Formatting of this note might b e different from the original. Pt did not have necrotizing fasciitis du ring this current hospitalization. Acute cholecystitis 11/06/2007 11/20/2021 documented as of this encounter (statuses as of 02/21/2023)[facility] 01-13-2023 History of Past illness Narrative Problem Noted Date Resolved Date Necrotizing fasciitis 01/13/2023 01/16/2023 Overview:Formatting of this note might b e different from the original. Pt did not have necrotizing fasciitis du ring this current hospitalization. Acute cholecystitis 11/06/2007 11/20/2021 documented as of this encounter (statuses as of 02/21/2023)[facility] 01-13-2023 History of Past illness Narrative Problem Noted Date Resolved Date Necrotizing fasciitis 01/13/2023 01/16/2023 Overview:Formatting of this note might b e different from the original. Pt did not have necrotizing fasciitis du ring this current hospitalization. Acute cholecystitis 11/06/2007 11/20/2021 documented as of this encounter (statuses as of 02/24/2023)[facility] 01-13-2023 History of Past illness Narrative Problem Noted Date Resolved Date Necrotizing fasciitis 01/13/2023 01/16/2023 Overview:Formatting of this note might b e different from the original. Pt did not have necrotizing fasciitis du ring this current hospitalization. Acute cholecystitis 11/06/2007 11/20/2021 documented as of this encounter (statuses as of 02/25/2023)[facility] 01-13-2023 History of Past illness Narrative Problem Noted Date Resolved Date Necrotizing fasciitis 01/13/2023 01/16/2023 Overview:Formatting of this note might b e different from the original. Pt did not have necrotizing fasciitis du ring this current hospitalization. Acute cholecystitis 11/06/2007 11/20/2021 documented as of this encounter (statuses as of 02/25/2023)[facility] 01-13-2023 History of Past illness Narrative Problem Noted Date Resolved Date Necrotizing fasciitis 01/13/2023 01/16/2023 Overview:Formatting of this note might b e different from the original. Pt did not have necrotizing fasciitis du ring this current hospitalization. Acute cholecystitis 11/06/2007 11/20/2021 documented as of this encounter (statuses as of 02/26/2023)[facility] 01-13-2023 History of Past illness Narrative Problem Noted Date Resolved Date Necrotizing fasciitis 01/13/2023 01/16/2023 Overview:Formatting of this note might b e different from the original. Pt did not have necrotizing fasciitis du ring this current hospitalization. Acute cholecystitis 11/06/2007 11/20/2021 documented as of this encounter (statuses as of 02/26/2023)[facility] 01-13-2023 Miscellaneous NotesTelephone Encounter - Lula Sarmiento LPN - 01/13/2023 1:04 PM EST Records from [facility] forwarded to Carolee as requested. Telephone Encounter - Sandra Potts LPN - 01/08/2023 4:24 PM EST Discharge summary requested from [facility] medical records at this time. Sandra Potts LPN Telephone Encounter - Irena Bland LPN - 01/06/2023 4:51 PM EST Carolee R with [facility] calls to report that pt was discharged from [facility] on 01/01/23. Carolee is asking for discharge summary to be faxed to her when office receives it. . Irena Bland LPN documented in this encounterL[facility]02-07-2023 Miscellaneous Notes Telephone Encounter - Lula Sarmiento LPN - 01/07/2023 11:12 AM EST Patient has follow up visit 01/14/23 for 40 min-will see her as Hosp follow up and reschedule RTN follow up. Telephone Encounter - Panfilo Oreilly MD - 12/27/2022 8:01 AM EST Reviewed and agree. When she is finally discharged from [facility], will need f/u in 1 week for 40 minute OV. Telephone Encounter - Christi Barney RN - 12/26/2022 6:54 PM EST [facility] urgent care physician assistant calling to let PCP know patient is in [facility] ICU with soft tissue infection. This nurse cancelled patient's hospital discharge follow up appointment from 12/20 hospital discharge which was scheduled for 12/27/22 with PCP. Christi Barney, RN documented in this encounterLakehealth [facility]02-06-2023 Miscellaneous Notes Telephone Encounter - [...] in chart. Margarita TOWNSEND documented in this encounterLakehealth [facility] Center02-03-2023 Miscellaneous Notes Telephone Encounter - Sandra Potts LPN - 01/03/2023 2:09 PM EST [facility] 11/08/2022 NOV 01/14/2023 Sandra Potts LPN Telephone Encounter - Vanessa Ignacio [facility] - 01/03/2023 8:30 [...] this request. No need to notify patient. [facility] documented in this encounterLakehealth [facility] Center02-02-2023 Miscellaneous Notes Telephone Encounter - [...] RPh 01/02/2023 2:42 PM documented in this encounterLakehealth [facility] Center02-02-2023 [facility] History of Present illness Tommy Crowley RN - 01/02/2023 11:19 AM EST TRANSITIONAL CARE MANAGEMENT (TCM) COMMUNITY MONITORING PROGRAM Provider Action/FYI: [facility] Spoke with patient, states pain is [...] RN and I am calling from the [facility] on behalf of your PCP, [...] like to speak with a social work marine steamfitter to help give you support for any [...] I will send your request to a production scheduler who will contact and assist you [...] TCM Home Visit Referral Source of Stratification: [facility] Admission Status: Discharged Readmission Risk Score: 37 PAMELA Score: 4 Patient meets program referral criteria: No Patient does not qualify for High Risk TCM Home Visit program due to: Discharged home, does not meetprogram criteria Mimi Crowley RN January 02, 2023 11:25 AM documented in this encounterLakehealth [facility] Center02-02-2023 History of Present illness Wil Kilpatrick, [facility] - 01/02/2023 10:24 AM [...] name and . Summary: -Pt discharged from [facility] on 01/01/23. -Medication review done: Partial [...] mouth once daily. flash glucose scanning reader (VicariousSTYLE DOMENICO 14 DAY READER) 1 Device four times daily. Taking as prescribed without any issues Discontinued: 12/31/2022 1:30 PM flash glucose sensor (FREESTYLE DOMENICO 14 DAY SENSOR) kit 1 Each once daily. Use 1 device for up to 14 days to monitor sugars 4 times per day. [employer] furosemide (LASIX) 20 mg tablet Take 1 tablet by mouth twice daily. Take BID with 80 mg lasix to equal 100 mg BID furosemide (LASIX) 40 mg tablet Take 1-2 tablets BID for lower extremity edema Discontinued: 12/30/2022 8:05 AM gabapentin (NEURONTIN) 800 mg tablet TAKE 1 TABLET BY MOUTH THREE TIMES A DAY [employer] [place] insulin glargine U-300 conc (TOUJEO MAX U-300 SOLOSTAR) 300 unit/mL (3 mL) inpn Inject 105 Units subcutaneously twice daily. insulin lispro (HUMALOG KWIKPEN INSULIN) 100 unit/mL Inject 50 units plus sliding scale three times daily before meals (Sliding scale: 2 units for every 50 points >150; TDD 150 units) Hemoglobin A1C (%) Date Value 11/11/2022 10.1 12/12/2021 10.0 Insulin Hopwood, Disposable, (BD ULTRA-FINE GABINO PEN NEEDLE) 32 [...] for pain for up to 5 days. [facility] [place] Counseled on AEs and [...] RED Patient requires large seat Preferred pharmacy: [facility] [place] [facility] [id number] [place] [address] - [address] [phone] [address] [place] [address] e- [id number] [place] [address] - [address] [facility] - [phone] [address] [facility] [address] [facility] [address] - [place] [address] - [address] - [phone] [address] [place] [address] Estimated Creatinine Clearance: 128.2 mL/min (based on SCr of 0.9 mg/dL). Estimated Glomerular Filtration Rate (mL/min/1.73m ) Date Value 01/01/2023 81 eGFR- (no units) Date Value 01/23/2022 >60 Additional follow up: Next 5 Appointments Date and Time Provider Department Dept Phone 01/02/2023 2:00 PM Robert [facility] [phone] 01/14/2023 11:00 AM Panfilo Oreilly [facility] [phone] Interventions Made: Patient education/Medication counseling Pharmacist Recommendations Made None Care Coordination: None at this time Time spent on patient: 15-30 minutes Brissa Kilpatrick RPh January 02, 2023 10:25 AM documented in this encounterLakehealth [facility] Center02-01-2023 [facility]02-01-2023 [facility]01-31-2023 Miscellaneous Notes Telephone Encounter - Diana Mackenzie LICENSED NURSE PRACTITIONER - 12/31/2022 1:26 PM EST Patient has [...] you. Diana Mackenzie LPN documented in this encounterLakehealth Beachwood Medical Center01-31-2023 [facility]01-30-2023 [facility]01-29-2023 [facility]01-28-2023 [facility]01-28-2023 NoteHNO ID: [id number] Author: Interface Note Service: ? Author Type: ? Type: Progress Notes Filed: 12/28/2022 4:21 AM Note Text: Epic Scheduled Downtime: 12/28/2022 1:00:00 AM to 12/28/2022 3:56:[facility] Miscellaneous NotesTelephone Encounter - Silvino Martinez LPN - 12/27/2022 3:46 PM EST Patient phones requesting refills as follows: Requested Prescriptions Pending Prescriptions Disp Refills gabapentin (NEURONTIN) 800 mg tablet [Pharmacy Med Name: Gabapentin 800MG TABS] 90 tablet 2 Sig: TAKE 1 TABLET BY MOUTH THREE TIMES A DAY Please review and advise. Silvino Martinez LPN documented in this encounterLakehealth [facility]wood Medical Center01-27-2023 [facility]01-26-2023 [facility]01-26-2023 [facility]01-25-2023 [facility]01-25-2023 [facility]01-25-2023 [facility]01-25-2023 History of Present illness NarrativeDakraig Key APRN.NIKIA - 12/25/2022 2:22 AM EST Images from the original note were not included. Critical Care Transport Note Patient Name: Macario Overton Service Date: 12/25/2022 Referring Physician: Job Accepting Physician: Delfino Referring Facility: [facility] Accepting Facility: [facility] SUBJECTIVE/CHIEF COMPLAINT: left thigh abscess REASON FOR TRANSPORT: Higher level of surgical intervention not available at [facility] History of Present Illness: The following history is what was known to CCT team at time of given care and summarized through: referring provider report Macario Overton is a 47 year old female with pertinent past medical history significant for CHF, COPD, HTN, GERD, DM2, LOGNA, and NSTEMI. She presented to [place] ED on 12/25/2022 for evaluation of left [...] higher level of surgical intervention notavailable at [place]. At this time, the physician managing the patient requested transfer to [facility] for tertiary and/or quaternary services unavailable at the referring facility. Patient condition at time ofexam was: Acutely ill and emergent surgical intervention. Due to the unique circumstances of the patient, it was determined that this was the closest, most appropriate facility by referring physician. The physician managing the patient requested the [facility] Critical Care Transport Team transport and treat the patient for the purpose of tertiary care, evaluation, and management of her surgical condition(s). Air medical transport was requested to reduce the [id number]-vx-[id number] time, 20 minutes by air vs. approximately [...] right groin 04/07/2014 Acute diastolic heart failure (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) Seeing Neurology Diastolic heart failure ([facility]) GERD (gastroesophageal reflux disease) History of abnormal cervical Pap smear History of tobacco use Hyperlipidemia Insomnia Microalbuminuria Morbid obesity ([facility]) Narcotic abuse ([facility]) Non-STEMI (non-ST elevated myocardial infarction) ([facility]) 2/2 respiratory illness LOGAN (obstructive sleep apnea) using CPAP, Dr. Dumont Pulmonary embolism ([facility]) Seasonal allergies Unspecified essential hypertension PAST [...] 60 tablet^Rfl: 2 flash glucose scanning reader (VicariousSTYLE DOMENICO 14 DAY READER)^1 Device four times [...] daily with breakfast.^Disp: 30 tablet^Rfl: 5 Insulin Hopwood, Disposable, (BD ULTRA-FINE GABINO PEN NEEDLE) 32 [...] VS en route - expedite transfer to [place] for further intervention The transport was completed without significant incident or change in the patient's status. The patient was transported to the [facility] by [facility]otor (Helicopter) for tertiary and/or quaternary evaluation and management of her Emergent Surgical condition(s). Upon arrival to the receiving facility, a [id number] report was given to bedside nursing staff in ED and Resident / PA / WEDDING DAY COORDINATOR: Dr. Kelley . Patient care was transferred. [...] [place] Key APRN.NIKIA Acute Care Nurse Practitioner [facility] Critical Care Transport Team documented in this encounterLakehealth Beachwood Medical Center01-24-2023 Miscellaneous Notes Telephone Encounter - Lula Sarmiento LPN - 12/24/2022 6:25 PM EST Patient stated she will go to [facility]. PCP updated. Telephone Encounter - Panfilo [...] just ate two bologna sandwiches within the [id number] hour. Ate usual food amounts today. Pt [...] PCP can advise her or Robert Sanchez [facility]. Explained that message would be sent to Dr. Oreilly for review but will also forward to Robert. Please call pt with advise. Thank you. documented in this encounterLakehealth Beachwood Medical Center01-13-2023 Miscellaneous Notes Telephone Encounter - Robertlara Frostronan [facility] - 12/13/2022 9:08 AM [...] Provider: PANFILO OREILLY Ordering User: ROBERT SANCHEZ [facility] Telephone Encounter - Christi [...] know. Christi Barney RN documented in this encounterLakehealth Beachwood Medical Center01-12-2023 Miscellaneous Notes Telephone Encounter - [...] and advise. Irina Soriano documented in this encounterLakehealth Beachwood Medical Center01-05-2023 Miscellaneous Notes Telephone Encounter - [...] to do so. Will send strips to [facility] at her request. Robert Sanchez PharmD, [facility] Primary Care Clinical Pharmacist documented in this encounterLakehealth Beachwood Medical Center12-28-2022 Miscellaneous Notes Telephone Encounter - [...] Thank you. Annie Neville documented in this encounterLakehealth Beachwood Medical Center12-12-2022 Miscellaneous Notes Telephone Encounter - [...] in to lab today. Telephone Encounter - Llua Sarmiento LPN - 11/11/2022 8:47 AM EST [...] function returns to normal. 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) 07/2019 Left, small lesion on CT Anxiety Cholecystitis s/p cholecystectomy Diabetes mellitus without mention of complication Diabetic neuropathy ([facility]) Seeing Neurology Diastolic heart failure ([facility]) GERD (gastroesophageal reflux disease) History of abnormal cervical Pap smear History of tobacco use Hyperlipidemia Insomnia Microalbuminuria Morbid obesity ([facility]) Narcotic abuse ([facility]) Non-STEMI (non-ST elevated myocardial infarction) ([facility]) 2/2 respiratory illness LOGAN (obstructive sleep apnea) using CPAP, Dr. Dumont Pulmonary embolism ([facility]) Seasonal allergies Unspecified essential hypertension Previous [...] tablet by mouth daily with breakfast. Insulin Hopwood, Disposable, (BD ULTRA-FINE GABINO PEN NEEDLE) 32 [...] bedtime as needed. flash glucose scanning reader (VicariousSTYLE DOMENICO 14 DAY READER) 1 Device four times daily. fenofibrate nanocrystallized (TRICOR) 145 mg tablet Take 1 tablet by mouth once daily. flash glucose sensor (VicariousSTYLE DOMENICO 14 DAY SENSOR) kit 1 Each [...] Abs Lymph 1.00 - 4.00 k/uL 1.57 Tarrant% % 4.3 Abs Tarrant <0.87 k/uL 0.38 Eosin% % 2.8 Abs [...] smokingand schedule follow up visit with her surveillance technician at [facility]. 3. Tremor - ICD9: 781.0, ICD10: [...] which included preparing to see the patient, [id number] patient care, completing clinical documentation, obtaining and/or reviewing separatelyobtained history, performing a medically appropriate examination, counseling and educating the patien t/family/caregiver, and ordering medications, tests, or procedures. 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) Seeing Neurology Diastolic heart failure ([facility]) GERD (gastroesophageal reflux disease) History of abnormal cervical Pap smear History of tobacco use Hyperlipidemia Insomnia Microalbuminuria Morbid obesity ([facility]) Narcotic abuse ([facility]) Non-STEMI (non-ST elevated myocardial infarction) ([facility]) 2/2 respiratory illness LOGAN (obstructive sleep apnea) using CPAP, Dr. Dumont Pulmonary embolism ([facility]) Seasonal allergies Unspecified essential hypertension Current [...] tablet by mouth daily with breakfast. Insulin Hopwood, Disposable, (BD ULTRA-FINE GABINO PEN NEEDLE) 32 [...] bedtime as needed. flash glucose scanning reader (VicariousSTYLE DOMENICO 14 DAY READER) 1 Device four [...] Objective: Patient presents to clinic ambulating in [facility] Constitutional: Pt is a well developed 47 [...] Skin is ruborous b/l. Non-Invasive Vascular Laboratory [facility] Lower Extremity Arterial Physiology Study Bilateral/Complete Date [...] Care Saba Brenner LPN documented in this encounterLakehealth Beachwood Medical Center12-07-2022 InstructionsPatient InstructionsMadustin Mosley - 11/06/2022 [...] (or decreased sensation in your feet) a hydrodynamicist should always cut your toenails. Be Careful [...] Go to your health care provider or hydrodynamicist to treat these conditions. documented in this encounterLakehealth Beachwood Medical Center12-06-2022 Miscellaneous Notes Telephone Encounter - [...] 3:16 PM EST Clarisa Quintero [facility] in and was check [...] Please call and advise. documented in this encounterLakehealth Beachwood Medical Center11-30-2022 NoteMem[facility]11-30-2022 NoteMem[facility]11-30-2022 History of Present illness Margarita Suero [facility] - 10/30/2022 1:00 PM EST Primary Care Pharmacy Visit CC (Reason for Consult): Diabetes Goal: A1c < 7% Collaborating Provider: Dr. Oreilly Last Provider Visit: 10/18/22 Macraio Overton is a 47 year old female presenting for follow up visit by telephone. Patient consents to pharmacy collaborative practice agreement. Patient is presenting today for follow up pharmacotherapy management appointment for diabetes. Admitted to [facility] form 09/22 to 09/24 for acute [...] GLYCEMIC CONTROL: SMBG s: patient has a AlaMarkastyle domenico, but sensor fell off a few [...] mellitus without mention of complication Diabetic neuropathy ([facility]) Seeing Neurology Diastolic heart failure ([facility]) GERD (gastroesophageal reflux disease) History of abnormal cervical Pap smear History of tobacco use Hyperlipidemia Insomnia Microalbuminuria Morbid obesity ([facility]) Narcotic abuse ([facility]) Non-STEMI (non-ST elevated myocardial infarction) ([facility]) 2/2 respiratory illness LOGAN (obstructive sleep apnea) using CPAP, Dr. Dumont Pulmonary embolism ([facility]) Seasonal allergies Unspecified essential hypertension ALLERGIES [...] mouth once daily. flash glucose scanning reader (VicariousSTYLE DOMENICO 14 DAY READER) 1 Device four [...] 50 points >150; TDD 150 units) Insulin Hopwood, Disposable, (BD ULTRA-FINE GABINO PEN NEEDLE) 32 [...] polyneuropathy, with long-term current use of insulin ([facility]) - ICD9: 250.60, 357.2, V58.67, ICD10: [...] of instructions. Tessa Suero RPh, PharmD PGY1 Order Puller The majority of the pharmacy visit (> [...] my input and comments. Robert Sanchez PharmD, [facility] Primary Care Clinical Pharmacist documented in this encounterLakehealth Beachwood Medical Center11-22-2022 Miscellaneous Notes Telephone Encounter - [...] home. Requesting provider submit a claim to [employer] for patient to have a scooter. Clarisa reports that it will probably be denied butdaphnie would like to get the process started. Not pended. Patient has follow up appointment 11/08/2022. Marianne Grier RN documented in this encounterLakehealth Beachwood Medical Center11-22-2022 Miscellaneous Notes Telephone Encounter - [...] AM EST ----- Normal/stable labs. BNP from [facility] resulted at 11 which is normal. Recommend she continue higher dose lasix, low sodium diet, wear CPAP nightly as discussed. F/u with cardiology. Call if leg swelling notimproving with lasix or with weight increase as discussed in office. documented in this encounterLakehealth Beachwood Medical Center11-18-2022 Miscellaneous Notes Telephone Encounter - Sandra Potts LPN - 10/18/2022 3:45 PM EST [facility] telephoned and made aware of TAMRA, ANESTHESIOLOGY RESIDENT message. Read back. Will dispense for patient. Sandra Potts LPN Telephone Encounter - Hallie Martinez APRN.CNP - 10/18/2022 2:56 PM EST Fine to dispense 81 and that can be for one month. Hallie Martinez APRN.CNP Telephone Encounter - Tri Sorensen RN - 10/18/2022 2:46 PM EST [facility] calling regarding recent script for nicotine patches for patient. Pharmacy states thepacks come in quantity of 81 only and to specify how many days provider would like patient to take this medication. Please contact [facility]. Thank you. documented in this encounterLakehealth Beachwood Medical Center11-18-2022 NoteMem[facility]11-18-2022 NoteMem[facility]11-18-2022 InstructionsPatient InstructionsChbashir Oreilly MD - 10/18/2022 11:53 AM EST Check daily weight and call with 2-3 lbs weight gain in 24 hours, or 5 lbs total. documented in this encounterLakehealth Beachwood Medical Center11-18-2022 History of Present illness NarrativeChbashir Oreilly MD - 10/18/2022 10:29 AM EST Chief Complaint Patient presents with: Hospital Follow Up HPI Macario Overton is a 47 year old female who presents here today for Hospital Discharge Follow up.. Patient was admitted to [facility] form 09/22 to 09/24 for acute [...] Patient does not have follow up with surveillance technician and has not seen cardiology recently for [...] tablet by mouth daily with breakfast. Insulin Hopwood, Disposable, (BD ULTRA-FINE GABINO PEN NEEDLE) 32 [...] bedtime as needed. flash glucose scanning reader (VicariousSTYLE DOMENICO 14 DAY READER) 1 Device four [...] - ECG COMPLETE 2. COPD with exacerbation ([facility]) - ICD9: 491.21, ICD10: J44.1 Continue [...] LOZENGE Panfilo Oreilly MD documented in this [facility]11-04-2022 Miscellaneous Notes Telephone Encounter - Diana Mackenzie [...] you. Diana Mackenzie LPN documented in this encounterLakehealth [facility]wood Medical Center11-01-2022 Miscellaneous Notes Telephone Encounter - Keyonna Gross LPN - 10/01/2022 9:02 AM EDT Spoke with pt and information listed below given. Pt verbalizes understanding. Pt has picked up the Trulicity. Keyonna Gross LPN Telephone Encounter - Robert Sanchez RPh - 09/09/2022 3:36 PM EDT director of student affairs called around to different pharmacies, learned [facility] [address] can get her Trulicity in stock. [...] of the above. Thanks! Robert Sanchez, PharmD, [facility] Primary Care Clinical Pharmacist Telephone Encounter [...] do. Keyonna Gross LPN documented in this encounterLakehealth [facility]wood Medical Center10-10-2022 Miscellaneous Notes Telephone Encounter - Sandra Potts LPN - 09/09/2022 3:57 PM EDT Looks like Robert Sanchez, [facility] sent a new script to 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 Patient telephonedand made aware, agreeable to [facility]. Sandra Potts LPN Telephone Encounter - Panfilo Oreilly MD - 09/09/2022 2:08 PM EDT Can this be transferred to another pharmacy? Telephone Encounter - Jessica Croft LPN - 09/09/2022 2:04 PM EDT [facility] Trulicty is on backorder, Patient is completely out of medication x1 week, asking if there is an alternative for Patient. Jessica Croft LPN documented in this encounterLakehealth [facility]wood Medical Center10-06-2022 NoteMemorial [facility]09-27-2022 Miscellaneous NotesTelephone Encounter - Lula Cameron LPN - 08/27/2022 2:01 PM EDT Pt calling for refill. HUMBLE: 07/09/22 NOV: 10/18/22 Last Refill: 02/28/22 #90 0 refills Lula Cameron LPN documented in this encounterLakehealth Beachwood Medical Center09-01-2022 NoteMemorial [facility]09-01-2022 History of Present illness NarrativeEmlara Sanchez [facility] - 08/01/2022 1:00 PM [...] eating a lot of fruit. Has the Rong360 Domenico, said the sensor has fallen off [...] not present Adherence: denies missed doses Pharmacy: [facility] Rx coverage: Medicaid Affordability: no issues Diabetes supplies: [employer] Domenico CGM Organization System: pill box ACTIVE PROBLEM LIST Calculus of Gallbladder Without Mention of Cholecystitis Or Obstruction Anxiety Logan (Obstructive Sleep Apnea) Essential Hypertension Gerd (Gastroesophageal Reflux Disease) Morbid Obesity ([facility]) Microalbuminuria Insomnia History of Tobacco Use Hyperlipidemia Diabetic Neuropathy ([facility]) Type 2 Diabetes Mellitus With Diabetic Polyneuropathy, With Long-Term Current Use of Insulin ([facility]) Mgus (Monoclonal Gammopathy of Unknown Significance) Acute Pulmonary Embolism Without Acute Cor Pulmonale ([facility]) Adrenal Incidentaloma ([facility]) Obesity, Class III, BMI >= 40 PAST MEDICAL HISTORY Diagnosis Date Abscess of right groin 04/07/2014 Acute diastolic heart failure (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) Seeing Neurology Diastolic heart failure ([facility]) GERD (gastroesophageal reflux disease) History of abnormal cervical Pap smear History of tobacco use Hyperlipidemia Insomnia Microalbuminuria Morbid obesity ([facility]) Narcotic abuse ([facility]) Non-STEMI (non-ST elevated myocardial infarction) ([facility]) 2/2 respiratory illness LOGAN (obstructive sleep apnea) using CPAP, Dr. Dumont Pulmonary embolism ([facility]) Seasonal allergies Unspecified essential hypertension ALLERGIES [...] 50 points >150; TDD 150 units) Insulin Hopwood, Disposable, (BD ULTRA-FINE GABINO PEN NEEDLE) 32 [...] niece help her get set up with [facility] ACEi/ARB for renal protection: yes, Scr and K+ sufficient Statin: yes, LFTs sufficient HbA1c: due 10/09 Patient is scheduled to see PCP on 10/18. Patient to have PharmD f/u on 09/05. Patient verbalized understanding of instructions. Robert Sanchez PharmD, [facility] Primary Care Clinical Pharmacist The majority of the pharmacy visit (> 50%) was spent counseling and/or coordinating care for the patient. interaction: telephonic time was 55 minutes. documented in this encounterLakehealth [facility]wood [facility] Center09-01-2022 InstructionsPatient InstructionsRobert Sanchez RPh - [...] help you get set up with the Contrib account. If you did not get the email, please let me know. Start to review nutrition labels. Try to limit your carbohydrates to <30-45g per MEAL. Review thematerials I sent to you via QuNano. Try to incorporate more protein and fiber into your diet. Try switching to 1/2 bagel or to Bagel Thins. documented in this encounterLakehealth Beachwood Medical Center08-25-2022 NoteMemorial Health [facility]08-25-2022 History of Present illness Lewis Bauman [...] previous colonoscopy. She was recently evaluated at [facility] ED on 04/21/2022 for chest pain. She [...] abuse (HCC) Non-STEMI (non-ST elevated myocardial infarction) ([facility]) 2/2 respiratory illness LGOAN (obstructive sleep apnea) using CPAP, Dr. Dumont Pulmonary embolism ([facility]) Seasonal allergies Unspecified essential hypertension PAST SURGICAL HISTORY Procedure Laterality Date ANALGESIA,EPIDURAL,LABOR & 1994 INCISION & DRAINAGE ABSCESS COMPLICATED/MULTIPLE 04/07/14 LAPS SURG CHOLECYSTECTOMY W/CHOLANGIOGRAPHY 11/04/2007 PAST SURGICAL HISTORY OF Left 2007 arthroscopic knee surgery PAST SURGICAL HISTORY OF 1995 LEEP Current Outpatient Medications Medication Sig Insulin Hopwood, Disposable, (BD ULTRA-FINE GABINO PEN NEEDLE) 32 [...] bedtime as needed. flash glucose scanning reader (VicariousSTYLE DOMENICO 14 DAY READER) 1 Device four [...] entered by the nurse and reviewed by ny Nursing Notes: Nadia Cagle 07/23/2022 10:34 AM [...] prefer stool guaiac testing over going to [facility] for colonoscopy. I have [...] Straightforward Berenice Bauman MD documented in this encounterLakehealth Beachwood Medical Center08-24-2022 Miscellaneous Notes Telephone Encounter - [...] notify patient. Madelyn Estes documented in this encounterLakehealth Beachwood Medical Center08-23-2022 Nurse Timbo Cagle - 07/23/2022 [...] Colonoscopy: Unknown Nadia Cagle documented in this encounterLakehealth Beachwood Medical Center08-11-2022 Miscellaneous Notes Telephone Encounter - Robert Sanchez RPh - 07/11/2022 9:21 AM EDT Called patient to schedule f/up appt for DM mngt, CGM interpretation, and med review. Scheduled for 08/01. Billy MarionD, BCPS Primary Care Clinical Pharmacist documented in this encounterLakehealth Beachwood Medical Center08-09-2022 NoteMemorial [facility]08-09-2022 Miscellaneous NotesTelephone Encounter - Sandra Potts LPN - 07/09/2022 1:20 PM EDT Patient aware. Sandra Potts LPN Telephone Encounter - Panfilo Oreilly MD - 07/09/2022 1:17 PM EDT Rx sent as requested. Telephone Encounter - Lula Sarmiento LPN - 07/09/2022 11:37 AM EDT Patient is changing her primary pharmacy to [facility] and is requesting all Rx's for medications and diabetic supplies forwarded to them. documented in this encounterLakehealth Beachwood Medical Center08-09-2022 NoteMemorial [facility]08-05-2022 Miscellaneous NotesTelephone Encounter - Diana aMckenzie KRISTIAN - 07/05/2022 4:32 PM EDT Patient [...] you. Diana Mackenzie LPN documented in this encounterLakehealth Beachwood Medical Center08-03-2022 Miscellaneous Notes Telephone Encounter - [...] schedule. Belem Romero Ma documented in this encounterLakehealth Beachwood Medical Center07-29-2022 Miscellaneous NotesTelephone Encounter - Belem [...] patient. Kimber Moore Pss documented in this encounterLakehealth Beachwood Medical Center07-29-2022 Miscellaneous Notes Telephone Encounter - Lula Sarmiento LPN - 06/28/2022 11:41 AM EDT Phoned patient to schedule OV follow up as she is past due. Patient had an appointment on 06/18/22 but was a no show. documented in this encounterLakehealth Beachwood Medical Center07-28-2022 Miscellaneous NotesTelephone Encounter - Robert Sanchez RPh - 2022 11:45 AM EDT Patient no-showed to PharmMonae visit today. Unable to reach via phone and VM not set up yet. Will try reaching out at a later date to reschedule. Robert Sanchez PharmD, [facility] Primary Care Clinical Pharmacist Ronal Paz [facility] documented in this encounterLakehealth [facility]wood Medical Center07-14-2022 Miscellaneous NotesTelephone Encounter - Robert Sanchez RPh - 06/13/2022 11:17 AM EDT Patient is a no show for PharmD visit today. Called patient, she is still out of town, had a car issue and just got fixed today. She apologized for missing and agreed to reschedule for next week on 06/20. Robert Sanchez PharmD, [facility] Primary Care Clinical Pharmacist Ronal Paz [facility] documented in this encounterLakehealth Beachwood Medical Center07-06-2022 Miscellaneous NotesTelephone Encounter - Hallie [...] you. Lashon Overton LPN documented in this encounterLakehealth Beachwood Medical Center06-02-2022 NoteMem[facility] 05-02-2022 History of Present illness NarrativeRobert [...] consumed sugar (cup of OJ and chewy ZetrOZs), levels eventually went up to 90 mg/dL. [...] to [employer]. Leaving for vacation in [place] on Friday. Current DM Medications: Metformin ER [...] present Adherence: denies missed doses Pharmacy: [facility] in [place] Rx coverage: Medicaid Affordability: no issues Diabetes supplies: [employer] CGM Organization System: pill box ACTIVE PROBLEM [...] mouth once daily. flash glucose scanning reader (VicariousSTYLE DOMENICO 14 DAY READER) 1 Device four [...] diet PharmD sent invite to link via Contrib. Patient to get account set up prior to next PharmD visit and have CGM downloaded the day prior HbA1c: due 06/18 Patient is scheduled to see ANESTHESIOLOGY RESIDENT on 06/18. Patient to have PharmD f/u on 06/06. Patient verbalized understanding of instructions. Robert Sanchez PharmD, [facility] Primary Care Clinical Pharmacist Ronal Paz [facility] The majority of the pharmacy visit (> 50%) was spent counseling and/or coordinating care for the patient. interaction: telephonic time was 30 minutes. documented in this encounterLakehealth Beachwood Medical Center06-01-2022 Miscellaneous NotesTelephone Encounter - Hallie [...] 12/12/2021 23 Please advise. Thank you. Georgina Samaoya RN documented in this encounterLakehealth [facility] Center05-11-2022 Miscellaneous NotesTelephone Encounter - Panfilo [...] have it sent to her pharmacy , [facility]. Patient has been identified by name and date of : Yes Pending Prescriptions Disp Refills GABAPENTIN 800 MG TABLET 90 tablet 0 Sig: Take 1 tablet by mouth three times daily for 30 days. RIKKI: No RX INSTRUCTIONS: Patient aware RX will be sent to pharmacy. No need to notify patient. Vanessa Ferrarisec documented in this encounterLakehealth Beachwood [facility] Center05-04-2022 Miscellaneous NotesTelephone Encounter - Robert Sanchez, [facility] - 04/03/2022 10:56 AM [...] office with any issues. Robert Sanchez PharmD, [facility] Primary Care Clinical Pharmacist Ronal Paz [facility] documented in this encounterLakehealth Beachwood [facility] Center04-29-2022 Miscellaneous NotesTelephone Encounter - Robert [...] questions andverbalized understanding. Leena Salinas PharmD PGY1 Order Puller elephone Encounter - Leena Salinas RPh - [...] for insurance coverage. Leena Salinas PharmD PGY1 Order Puller elephone Encounter - Georgina Samayoa RN - 03/29/2022 11:38 AM EDT Patient calls and states that provider had increased patient's insurance yesterday at appointment. Patient states that when she went to orange picker machine operator medication she was told that dosage is too high by pharmacist and insurance will not cover medication. Patient states that she may need a prior authorization. Please review and advise, Georgina Samayoa RN documented in this encounterLakehealth Beachwood [facility] Center04-28-2022 Miscellaneous Notes Telephone Encounter - [...] if provider will send a medication to [facility] in [place] for her. Please call and advise. documented in this encounterLakehealth Beachwood [facility] Center04-28-2022 [facility]Mem[facility]22 History of Present illness Kimo Sanchez RPh - 03/28/2022 10:30 AM EDT The patient's case was discussed with the clinical pharmacy technician who interviewed the patient. Walton elements of history confirmed during office visit. The progress note reflects my input and comments. Robert Sanchez PharmD, [facility] Primary Care Clinical Pharmacist Carmel PHILLIPS Bradley [...] mid-200s mg/dL. Patient was able to obtain Rong[employer] Domenico CGM and was using. Patient recently placed new sensor on arm, but it was accidentally knocked offa couple days later. Not currently using CGM or checking BG. Patient states she never received invite for Contrib to connect with PharmD to view CGM [...] getting from pharmacy later today Pharmacy: [facility] in [place] Rx coverage: Medicaid Affordability: no issues Diabetes supplies: [employer] CGM Organization System: pill box ACTIVE PROBLEM [...] right groin 04/07/2014 Acute diastolic heart failure (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) Seeing Neurology GERD (gastroesophageal reflux disease) History of abnormal cervical Pap smear History of tobacco use Hyperlipidemia Insomnia Microalbuminuria Morbid obesity ([facility]) Narcotic abuse ([facility]) Non-STEMI (non-ST elevated myocardial infarction) ([facility]) 2/2 respiratory illness LOGAN (obstructive sleep apnea) using CPAP Pulmonary embolism ([facility]) Seasonal allergies Unspecified essential hypertension Past [...] mouth once daily. flash glucose scanning reader (VicariousSTYLE DOMENICO 14 DAY READER) 1 Device four [...] 261 12/12/2021 The 10-year ASCVD risk score ([place] SURESH Jr., et al., 2013) is: 2.6% [...] Tresiba to lower BG; patient can connect Contrib profile to PharmD for PharmD to review [...] 2000 mg daily Advised patient to call [employer] (telephone number on back of reader) to inquire about getting a replacement sensor PharmD will re-send invite to patient's email to connect on Contrib for CGM report sharing Patient to notify PharmD before next f/up visit if having any issues connecting on Contrib Recommended patient to reach out to PCP [...] understanding of instructions. Leena Salinas PharmD PGY1 Order Puller The majority of the pharmacy visit (> 50%) was spent counseling and/or coordinating care for the patient. interaction: telephonic time was 26 minutes. documented in this encounterLakehealth Beachwood Medical Center04-20-2022 Miscellaneous Notes Telephone Encounter - Keyonna Gross LPN - 03/20/2022 11:04 AM EDT Spoke with pt and information listed below given. Pt verbalizes understanding. Transferred to production scheduler. Keyonna Gross LPN Telephone Encounter - [...] months. Hallie Martinez APRN.CNP documented in this encounterLakehealth Beachwood [facility] Center04-19-2022 NoteMem[facility]04-19-2022 History of Present illness NarrativeHallie Martinez [...] water in it. Following with pulmonology in [place]. Continues to wear O2 continuously 2L at [...] right groin 04/07/2014 Acute diastolic heart failure (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) Seeing Neurology GERD (gastroesophageal reflux disease) History of abnormal cervical Pap smear History of tobacco use Hyperlipidemia Insomnia Microalbuminuria Morbid obesity (HCC) Narcotic abuse (HCC) Non-STEMI (non-ST elevated myocardial infarction) ([facility]) 2/2 respiratory illness LOGAN (obstructive sleep apnea) using CPAP Pulmonary embolism ([facility]) Seasonal allergies Unspecified essential hypertension ALLERGIES [...] mouth once daily. flash glucose scanning reader (VicariousSTYLE DOMENICO 14 DAY READER) 1 Device four [...] arise. 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 Hallie Martinez APRN.ANESTHESIOLOGY RESIDENT Prescription instructions reviewed with patient as applicable. Patient advised if symptoms do not improve or if symptoms worsen sooner, to contact their primary care physician. Potential red flag symptoms discussed with the patient. Reviewed appropriate action plan to take if red flag symptoms occur. Patient agreeable to treatment plan. documented in this encounterLakehealth Beachwood [facility] Center04-05-2022 Miscellaneous Notes Telephone Encounter - Sandra Potts LPN - 03/05/2022 1:23 PM EDT Patient telephoned and made aware. Sandra Potts LPN elephone Encounter - Panfilo Oreilly MD - 03/05/2022 1:06 PM EDT rx for Humalog sent. Continue same dosage as Novolog. elephone Encounter - Diana Mackenzie LPN - 03/05/2022 10:28 AM EDT Meghan from [facility] pharmacy calling patient insurance requesting Novolog insulin be changed to Humalog asking for new rx to be sent to pharmacy. Please advise documented in this encounterLakehealth Beachwood [facility] Center03-02-2022 Miscellaneous Notes Telephone Encounter - Sandra Potts LPN - 01/30/2022 11:27 AM EST Pt called and made aware. Prescription placed in medical records for pickup. Sandra Potts LPN Telephone Encounter - Marianne Grier RN - 01/30/2022 8:38 AM EST Patient calls to check on status of request for handicapped placard. Patient asking for prescriptionto be taken to Medical Records for orange picker machine operator. Please call patient when available at [phone]. Marianne Grier RN Telephone Encounter - Panfilo [...] like the prescription left at the front office representative. No chief complaint on file. Patient has been identified by name Noemy:[id number]} [phone] (home) [phone] (cell) Please return call when prescription ready for orange picker machine operator. Was an appointment scheduled: No: Closing statement: Results or non-symptom based questions: Thank you for calling [facility], your call will be returned within the next business day. Idalia Gongoraectronically signed by Idalia Milton at 01/29/2022 2:06 PM EST documented in this encounterLakehealth Beachwood [facility] Center02-28-2022 Miscellaneous Notes Telephone Encounter - [...] needed. Hallie Martinez APRN.CNP documented in this encounterLakehealth Beachwood [facility] Center02-25-2022 Miscellaneous Notes Telephone Encounter - [...] - 01/25/2022 11:24 AM EST Pt telephoned. [facility] didn't receive orders yet. Pt requesting [...] to patient with update documented in this encounterLakehealth Beachwood [facility] Center02-25-2022 Miscellaneous NotesTelephone Encounter - Nita [...] yeast infection. Please send scripts to [facility] [place] documented in this encounterLakehealth Beachwood [facility] Center02-23-2022 Miscellaneous NotesTelephone Encounter - Hallie Martinez APRN.CNP - 01/23/2022 4:35 PM EST Please fax orders for compression hose, wheeled walker and shower chair to [facility]. Orders in my outbox documented in this encounterLakehealth Beachwood [facility] Center02-14-2022 Miscellaneous Notes Telephone Encounter - [...] patient. Kristine Marmolejo Pss documented in this encounterLakehealth Beachwood Medical Center07-20-2021 Miscellaneous Notes Telephone Encounter - Esthela Weeks LPN - 06/19/2021 3:13 PM EDT Prior Authorization has been completed online at [employer] for Angelo Gore, will await response. [place]- [id number] Please keep encounter open until final decision has been received and documented from insurance company. Adalgisa Weeks LPN documented in this encounterLakehealth Beachwood Medical Center12-07-2007 History of Past illness Narrative Problem Noted Date Resolved Date Acute cholecystitis 11/06/2007 11/20/2021 documented as of this encounter (statuses as of 02/26/2022)[facility] 11[facility] History of Past illness Narrative Problem Noted Date Resolved Date Acute cholecystitis 11/06/2007 11/20/2021 documented as of this encounter (statuses as of 03/19/2022)[facility] 11-[facility] History of Past illness Narrative Problem Noted Date Resolved Date Acute cholecystitis 11/06/2007 11/20/2021 documented as of this encounter (statuses as of 03/20/2022)[facility] 11-[facility] History of Past illness Narrative Problem Noted Date Resolved Date Acute cholecystitis 11/06/2007 11/20/2021 documented as of this encounter (statuses as of 03/20/2022)[facility] 11-[facility] History of Past illness Narrative Problem Noted Date Resolved Date Acute cholecystitis 11/06/2007 11/20/2021 documented as of this encounter (statuses as of 03/20/2022)[facility] 11-[facility] History of Past illness Narrative Problem Noted Date Resolved Date Acute cholecystitis 11/06/2007 11/20/2021 documented as of this encounter (statuses as of 03/20/2022)[facility] 11[facility] History of Past illness Narrative Problem Noted Date Resolved Date Acute cholecystitis 11/06/2007 11/20/2021 documented as of this encounter (statuses as of 03/20/2022)[facility] 11-[facility] History of Past illness Narrative Problem Noted Date Resolved Date Acute cholecystitis 11/06/2007 11/20/2021 documented as of this encounter (statuses as of 03/28/2022)[facility] 11-06-[facility] History of Past illness Narrative Problem Noted Date Resolved Date Acute cholecystitis 11/06/2007 11/20/2021 documented as of this encounter (statuses as of 03/29/2022)[facility] 11-[facility] History of Past illness Narrative Problem Noted Date Resolved Date Acute cholecystitis 11/06/2007 11/20/2021 documented as of this encounter (statuses as of 04/02/2022)[facility] 11-[facility] History of Past illness Narrative Problem Noted Date Resolved Date Acute cholecystitis 11/06/2007 11/20/2021 documented as of this encounter (statuses as of 04/03/2022)[facility] 11-[facility] History of Past illness Narrative Problem Noted Date Resolved Date Acute cholecystitis 11/06/2007 11/20/2021 documented as of this encounter (statuses as of 04/10/2022)[facility] 11-06-[facility] History of Past illness Narrative Problem Noted Date Resolved Date Acute cholecystitis 11/06/2007 11/20/2021 documented as of this encounter (statuses as of 05/01/2022)[facility] 11-[facility] History of Past illness Narrative Problem Noted Date Resolved Date Acute cholecystitis 11/06/2007 11/20/2021 documented as of this encounter (statuses as of 05/02/2022)[facility] 11-06-[facility] History of Past illness Narrative Problem Noted Date Resolved Date Acute cholecystitis 11/06/2007 11/20/2021 documented as of this encounter (statuses as of 06/03/2022)[facility] 11-[facility] History of Past illness Narrative Problem Noted Date Resolved Date Acute cholecystitis 11/06/2007 11/20/2021 documented as of this encounter (statuses as of 06/05/2022)[facility] 11-06[facility] History of Past illness Narrative Problem Noted Date Resolved Date Acute cholecystitis 11/06/2007 11/20/2021 documented as of this encounter (statuses as of 06/13/2022)[facility] History of Past illness Narrative Problem Noted Date Resolved Date Acute cholecystitis 11/06/2007 11/20/2021 documented as of this encounter (statuses as of 2022)[facility] History of Past illness Narrative Problem Noted Date Resolved Date Acute cholecystitis 11/06/2007 11/20/2021 documented as of this encounter (statuses as of 06/28/2022)[facility] 11-[facility] History of Past illness Narrative Problem Noted Date Resolved Date Acute cholecystitis 11/06/2007 11/20/2021 documented as of this encounter (statuses as of 06/28/2022)[facility] 11[facility] History of Past illness Narrative Problem Noted Date Resolved Date Acute cholecystitis 11/06/2007 11/20/2021 documented as of this encounter (statuses as of 07/03/2022)[facility] 11-06-[facility] History of Past illness Narrative Problem Noted Date Resolved Date Acute cholecystitis 11/06/2007 11/20/2021 documented as of this encounter (statuses as of 07/11/2022)[facility] 11-[facility] History of Past illness Narrative Problem Noted Date Resolved Date Acute cholecystitis 11/06/2007 11/20/2021 documented as of this encounter (statuses as of 07/19/2022)[facility] 11-06[facility] History of Past illness Narrative Problem Noted Date Resolved Date Acute cholecystitis 11/06/2007 11/20/2021 documented as of this encounter (statuses as of 07/24/2022)[facility] 11-[facility] History of Past illness Narrative Problem Noted Date Resolved Date Acute cholecystitis 11/06/2007 11/20/2021 documented as of this encounter (statuses as of 07/27/2022)[facility] 11-06-[facility] History of Past illness Narrative Problem Noted Date Resolved Date Acute cholecystitis 11/06/2007 11/20/2021 documented as of this encounter (statuses as of 08/01/2022)[facility] 11-[facility] History of Past illness Narrative Problem Noted Date Resolved Date Acute cholecystitis 11/06/2007 11/20/2021 documented as of this encounter (statuses as of 08/01/2022)[facility] 11-[facility] History of Past illness Narrative Problem Noted Date Resolved Date Acute cholecystitis 11/06/2007 11/20/2021 documented as of this encounter (statuses as of 08/16/2022)[facility] 11-06-[facility] History of Past illness Narrative Problem Noted Date Resolved Date Acute cholecystitis 11/06/2007 11/20/2021 documented as of this encounter (statuses as of 08/27/2022)[facility] 11-06[facility] History of Past illness Narrative Problem Noted Date Resolved Date Acute cholecystitis 11/06/2007 11/20/2021 documented as of this encounter (statuses as of 09/10/2022)[facility] 11[facility] History of Past illness Narrative Problem Noted Date Resolved Date Acute cholecystitis 11/06/2007 11/20/2021 documented as of this encounter (statuses as of 10/01/2022)[facility] 11-06-[facility] History of Past illness Narrative Problem Noted Date Resolved Date Acute cholecystitis 11/06/2007 11/20/2021 documented as of this encounter (statuses as of 10/04/2022)[facility] 11-06-[facility] History of Past illness Narrative Problem Noted Date Resolved Date Acute cholecystitis 11/06/2007 11/20/2021 documented as of this encounter (statuses as of 10/18/2022)[facility] 11-06-[facility] History of Past illness Narrative Problem Noted Date Resolved Date Acute cholecystitis 11/06/2007 11/20/2021 documented as of this encounter (statuses as of 10/22/2022)[facility] 11-06[facility] History of Past illness Narrative Problem Noted Date Resolved Date Acute cholecystitis 11/06/2007 11/20/2021 documented as of this encounter (statuses as of 10/22/2022)[facility] 11-06-[facility] History of Past illness Narrative Problem Noted Date Resolved Date Acute cholecystitis 11/06/2007 11/20/2021 documented as of this encounter (statuses as of 10/22/2022)[facility] History of Past illness Narrative Problem Noted Date Resolved Date Acute cholecystitis 11/06/2007 11/20/2021 documented as of this encounter (statuses as of 10/30/2022)[facility] 11-06-[facility] History of Past illness Narrative Problem Noted Date Resolved Date Acute cholecystitis 11/06/2007 11/20/2021 documented as of this encounter (statuses as of 11/05/2022)[facility] 11[facility] History of Past illness Narrative Problem Noted Date Resolved Date Acute cholecystitis 11/06/2007 11/20/2021 documented as of this encounter (statuses as of 11/06/2022)[facility] 11-06-[facility] History of Past illness Narrative Problem Noted Date Resolved Date Acute cholecystitis 11/06/2007 11/20/2021 documented as of this encounter (statuses as of 11/11/2022)[facility] 11-06-[facility] History of Past illness Narrative Problem Noted Date Resolved Date Acute cholecystitis 11/06/2007 11/20/2021 documented as of this encounter (statuses as of 11/11/2022)[facility] 11-06-[facility] History of Past illness Narrative Problem Noted Date Resolved Date Acute cholecystitis 11/06/2007 11/20/2021 documented as of this encounter (statuses as of 12/04/2022)[facility] 11-06-[facility] History of Past illness Narrative Problem Noted Date Resolved Date Acute cholecystitis 11/06/2007 11/20/2021 documented as of this encounter (statuses as of 12/06/2022)[facility] 11-06-[facility] History of Past illness Narrative Problem Noted Date Resolved Date Acute cholecystitis 11/06/2007 11/20/2021 documented as of this encounter (statuses as of 12/12/2022)[facility] 11-06-[facility] History of Past illness Narrative Problem Noted Date Resolved Date Acute cholecystitis 11/06/2007 11/20/2021 documented as of this encounter (statuses as of 12/13/2022)[facility] 11-06-[facility] History of Past illness Narrative Problem Noted Date Resolved Date Acute cholecystitis 11/06/2007 11/20/2021 documented as of this encounter (statuses as of 12/25/2022)[facility] 11-06-[facility] History of Past illness Narrative Problem Noted Date Resolved Date Acute cholecystitis 11/06/2007 11/20/2021 documented as of this encounter (statuses as of 12/25/2022)[facility] 11-06-[facility] History of Past illness Narrative Problem Noted Date Resolved Date Acute cholecystitis 11/06/2007 11/20/2021 documented as of this encounter (statuses as of 12/30/2022)[facility] 11-06-2007 History of Past illness Narrative Problem Noted Date Resolved Date Acute cholecystitis 11/06/2007 11/20/2021 documented as of this encounter (statuses as of 12/31/2022)[facility] 11-06-[facility] History of Past illness Narrative Problem Noted Date Resolved Date Acute cholecystitis 11/06/2007 11/20/2021 documented as of this encounter (statuses as of 01/02/2023)[facility] 11-06-[facility] History of Past illness Narrative Problem Noted Date Resolved Date Acute cholecystitis 11/06/2007 11/20/2021 documented as of this encounter (statuses as of 01/02/2023)[facility] 11-06-2007 History of Past illness Narrative Problem Noted Date Resolved Date Acute cholecystitis 11/06/2007 11/20/2021 documented as of this encounter (statuses as of 01/03/2023)[facility] 11-06-2007 History of Past illness Narrative Problem Noted Date Resolved Date Acute cholecystitis 11/06/2007 11/20/2021 documented as of this encounter (statuses as of 01/07/2023)[facility] 11-06-2007 History of Past illness Narrative Problem Noted Date Resolved Date Acute cholecystitis 11/06/2007 11/20/2021 documented as of this encounter (statuses as of 01/07/2023)[facility] 11-06-2007 History of Past illness Narrative Problem Noted Date Resolved Date Acute cholecystitis 11/06/2007 11/20/2021 documented as of this encounter (statuses as of 01/13/2023)[facility] 11-06-2007 History of Past illness Narrative Problem Noted Date Resolved Date Acute cholecystitis 11/06/2007 11/20/2021 documented as of this encounter (statuses as of 01/14/2023)[facility] 11-06-2007 History of Past illness Narrative Problem Noted Date Resolved Date Acute cholecystitis 11/06/2007 11/20/2021 documented as of this encounter (statuses as of 01/15/2023)[facility] Evaluation note Diagnosis Chronic diastolic heart failure (HCC) Chronic diastolic heart failure documented in this encounterClesycam[facility] ClinicEvaluation note Diagnosis Type 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, with long-term current use of insulin (HCC)- Primary Dysuria LOGAN (obstructive sleep apnea) 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 (adult) (pediatr ic) Essential hypertension Unspecified essential hypertension Chronic respiratory failure with hypoxia (HCC) Chronic respiratory failure Hyperlipidemia, unspecified hyperlipidem ia type documented in this encounterClesycamore medical center ClinicEvaluation note Diagnosis Chronic diastolic heart failure (HCC)- P rimary Chronic diastolic heart failure documented in this encounterClesycamore medical center ClinicEvaluation note Diagnosis Vaginal rasta Candidiasis of [...] olyneuropathy, with long-term current use of insulin ([facility]) documented in this encounterClesycamore medical center ClinicEvaluation note Diagnosis Acute diastolic CHF (congestive heart fa ilure) ([facility])- Primary Acute diastolic heart failure COPD with exacerbation ([facility]) Obstructive chronic bronchitis with exac erbation Bacterial pneumonia Bacterial pneumonia, unspecified Hypoxia Hypoxemia LOGAN treated with BiPAP Bilateral lower extremity edema Edema Type 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, with long-term current use of insulin ([facility]) Other chest pain Tremor Abnormal involuntary movements Tobacco use Tobacco use disorder documented in this encounterC[facility] Diagnosis Type 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, with long-term current use of insulin ([facility])- Primary History of tobacco use Personal history of tobacco use, present ing hazards to health documented in this encounterBig Horn ClinicEvaluation note Diagnosis Onychomycosis- Primary Dermatophytosis of nail Pain in toe of left foot Pain in limb Pain in toe of right foot Pain in limb Other diabetic neurological complication associated with type 2 diabetes mellitus ([facility]) Hyperkeratosis Acquired keratoderma Chronic venous insufficiency Unspecified venous (peripheral) insuffic iency Diminished pulses in lower extremity Other symptoms involving cardiovascular system documented in this encounterCles[facility] ClinicEvaluation note Diagnosis Strep pharyngitis- Primary Streptococcal sore throat Reactive airway disease with acute exace rbation, unspecified asthma severity, unspecified whether persistent Tremor Abnormal involuntary movements LOGAN treated with BiPAP Morbid obesity ([facility]) Morbid obesity Type 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, with long-term current use of insulin ([facility]) Episodic lightheadedness Dizziness and giddiness Dehydration documented in this encounterBig Horn ClinicEvaluation note Diagnosis KERRY (acute kidney injury) ([facility])- Primary Acute kidney failure, unspecified documented in this encounterBig Horn ClinicEvaluation note Diagnosis Acute diastolic CHF (congestive heart fa ilure) ([facility]) Acute diastolic heart failure Bilateral lower extremity edema Edema documented in this encounterCleveland ClinicEvaluation note Diagnosis Type 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, with long-term current use of insulin ([facility]) documented in this encounterCles[facility] ClinicEvaluation [facility] Diagnosis Type 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, with long-term current use of insulin ([facility]) Ischemia of heart, chronic Chronic ischemic heart disease, unspecif ied Tachycardia Tachycardia, unspecified Acute pulmonary embolism without acute c or pulmonale, unspecified pulmonary embolism type (HCC) Essential hypertension Unspecified essential hypertension Hyperlipidemia, unspecified hyperlipidem ia type documented in this encounterBig Horn ClinicEvaluation note Diagnosis Necrotizing soft tissue infection documented in this encounterLake[facility] CenterEvaluation [facility] Diagnosis Open wounds involving multiple regions o f lower extremity- Primary documented in this encounterLakehealth [facility] CenterEvaluation note Diagnosis Abscess of groin, left- Primary Cellulitis and abscess of trunk Non-healing open wound of left groin, in itial encounter Necrotizing soft tissue infection Cellulitis of skin Cellulitis and abscess of unspecified si te Type 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, with long-term current use of insulin (HCC) documented in this encounterLakehealth Beachwood Medical CenterPatient's home Plan of care note Visit Details Visit Type -SN SOC Discipline -Penitentiary Problems Problem Description Start Date Status Goals [...] management and oxygen safety. documented in this encounterLakehealth Beachwood Medical CenterPatient's home Plan of care note Visit Details Visit Type -Care Coordination Discipline -Vendor Analyst Problems Problem Description Start Date Status Goals Interventions DRILLER MACHINE Referral 02/23/2023 Resolved on 1 goal linked to 1 goal Disciplines: 02/25/2023 scheduled/documen interventi on Skilled mitul intervention schedule d/document Services ed in this vis it Goals Goal Associated Problem Outcome Goal Met? Visit Not es Patient will be referred to DRILLER MACHINE Referral Completed Yes additional discipline as needed Interventions Intervention Associated Problem/Goal Status Variance Visi t Notes DRILLER MACHINE evaluation and Problem:DRILLER MACHINE Referral Completed treatment Goal:Patient will be referred to additional discipline as needed Description: DRILLER MACHINE Referral eval and treat for Community Resources. Patient states she is on waiver and is in need of an aide, electric, wheel chair, raised recliner states CM is working on these items [facility]) Diagnostic Procedure Only (Routine) - Pending Review Specialty Diagnoses / Procedures Referred By Contact Refer red To Contact BR IMAGING Diagnoses Encounter for screening mammogram for breast cancer Panfilo Oreilly MD Br Imaging Procedures SHERYL SCREENING SCREENING MAMMOGRAPHY BI 2-VIEW BREAST INC CAD [address] [place] [address] [id number] Referral ID Status Reason Start Expiration Visits Visits Date Date Requested Authorized [id number] Pending Auto-Generat 05/29/2022 06/28/2023 1 1 Review ed [facility]erral [facility] ([facility]ative)Outpatient Procedure (Routine) - Closed Specialty Diagnoses / Procedures Referred By Contact Refer red To Contact HEART AND VASCULAR Diagnoses Acute diastolic CHF (congestive heart failure) (HCC) Other chest pain Panfilo Oreilly, [facility] Procedures ECG COMPLETE ECG ROUTINE ECG W/LEAST 12 LDS W/I&R [address] [place], [place] [id number] [place] [id number] Referral ID Status Reason Start Date Expiration Date Visits V isits Requested Authorized [id number] Closed Auto-Generate 10/18/2022 10/18/2023 1 1 d Referral Diagnostic Procedure Only (Urgent) - Pending Review Specialty Diagnoses / Referred By Contact Referred To Contact Procedures MOLECULAR & Diagnoses Acute diastolic CHF (congestive heart failure) (HCC) Panfilo Oreilly Molecular [facility] FUNCTIONAL IMAGING Procedures NM CARDIAC PERF STRESS/PHARM MYOCARDIAL SPECT MULTIPLE STUDIES MD D[facility] [address] [facility] [address] [place], [place] [id number] [place] [address] Referral ID Status Reason Start Expiration Visits Visits Date Date Requested Authorized [id number] Pending Auto-Generat 11/17/2023 1 1 Review ed Referral 2 Consult, Test, Treat (Routine) - Authorized Specialty Diagnoses / Procedures Referred By Contact Refer red To Contact Cardiology Diagnoses Acute diastolic CHF (congestive heart failure) (HCC) Panfilo Oreilly MD Procedures CONSULT TO CARDIOLOGY OFFICE/OUTPATIENT [facility] 60-74 MINUTES [address] [place] [phone] Referral ID Status Reason Start Expiration Visits Visits Date Date Requested Authorized [id number] Authorized PCP Requested 10/18/2023 1 1 Referral 2 [facility] (narrative)Outpatient Procedure (Routine) - [...] EXTREMITY ART 2 LEVEL [address] [place] [phone] [address] [facility] [address] Referral ID Status Reason Start Expiration Visits Visits Date Date Requested Authorized [id number] Pending Auto-Generat 11/06/2022 11/06/2023 1 1 Review ed [facility]Outpatient Procedure (Urgent) - Authorized Specialty Diagnoses / Referred By Contact Referred To Contact Procedures [facility] Diagnoses Tremor Bursley, Christopher Neurological [facility] Procedures EPIL EEG ROUTINE ELECTROENCEPHALOGRAM REC COMA/SLEEP ONLY MD Dorys [address] [place] [address] [place] [address] Referral ID Status Reason Start Expiration Visits Visits Date Date Requested Authorized [id number] Authorized Auto-Generat 11/08/2022 11/08/2023 1 1 ed Referral Consult, Test, Treat (Routine) - Authorized Specialty Diagnoses / Procedures Referred By Contact Refer red To Contact Neurology Diagnoses Tremor Panfilo Oreilly MD Procedures CONSULT TO NEUROLOGY OFFICE/OUTPATIENT [facility] 60-74 MINUTES [address] [place] [address] Referral ID Status Reason Start Expiration Visits Visits Date Date Requested Authorized [id number] Authorized PCP Requested 11/08/2022 11/08/2023 1 1 Referral [facility] Advance Directives No Advanced Directives Records Found Documents on File Type Date Recorded Patient Librarian Helper Explanati on Advance Directive(s) 02/05/2022 1:53 PM Advance Directive(s) 10/16/2021 9:28 AM Documents on File Type Date Recorded Patient Librarian Helper Explanati on Advance Directive(s) 02/05/2022 1:53 PM Advance Directive(s) 10/16/2021 9:28 AM Latest Code Status on File Code Status Date Activated Date Inactivated Comments Full Code 02/25/2023 7:20 AM Latest Code Status on File Code Status Date Activated Date Inactivated Comments Full Code 02/25/2023 7:20 AM Reason for Referral Specialty Diagnoses / Procedures Referred By Contact Refer red To Contact Panfilo Oreilly MD [address] [place] [address] Referral ID Status Reason Start Date Expiration Date Visits Requ ested Visits Authorized [id number] Closed 1 1 Specialty Diagnoses / Procedures Referred By Contact Refer red To Contact Diagnoses Acute pulmonary embolism without acute cor pulmonale, unspecified pulmonary embolism type (HCC) Bacterial pneumonia Panfilo Oreilly MD [address] [place] [address] Referral ID Status Reason Start Date Expiration Date Visits Requ ested Visits Authorized [id number] Closed 1 1 Referral ID Status Reason Start Date Expiration Date Visits Requ ested Visits Authorized [id number] Closed 1 1 Summary Purpose Family History [...] prosecute any alcohol or drug abuse patient. [facility] CenterIn the event this information is protected by t Federal Confidentiality of Alcohol and Drug Abuse Patient Records regulations: This information has been disclosed to you from records protected by Federal confid entiality rules ( The Federal rules restrict any use of th e information to criminally investigate or prosecute any alcohol or drug abuse tracy ent. [facility] CenterIn the event this information is protected by the Federal Confidentiality of Alcohol and Drug Abuse Patient Records regulations: This inform ation has been disclosed to you from records protected by Federal confidentiality rul es ( The Federal rules restrict any use of the in formation to criminally investigate or prosecute any alcohol or drug abuse tracy ent. [facility] CenterIn the event this information is protected by the Federal Confidentiality of Alcohol and Drug Abuse Patient Records regulations: This inform ation has been disclosed to you from records protected by Federal confidentiality rul es ( The Federal rules restrict any use of the in formation to criminally investigate or prosecute any alcohol or drug abuse tracy ent. [facility] CenterIn the event this information is protected by the Federal Confidentiality of Alcohol and Drug Abuse Patient Records regulations: This inform ation has been disclosed to you from records protected by Federal confidentiality rul es ( The Federal rules restrict any use of the in formation to criminally investigate or prosecute any alcohol or drug abuse tracy ent. [facility] CenterIn the event this information is protected by the Federal Confidentiality of Alcohol and Drug Abuse Patient Records regulations: This inform ation has been disclosed to you from records protected by Federal confidentiality rul es ( The Federal rules restrict any use of the in formation to criminally investigate or prosecute any alcohol or drug abuse tracy ent. [facility] CenterIn the event this information is protected by the Federal Confidentiality of Alcohol and Drug Abuse Patient Records regulations: This inform ation has been disclosed to you from records protected by Federal confidentiality rul es ( The Federal rules restrict any use of the in formation to criminally investigate or prosecute any alcohol or drug abuse tracy ent. [facility] CenterIn the event this information is protected by the Federal Confidentiality of Alcohol and Drug Abuse Patient Records regulations: This inform ation has been disclosed to you from records protected by Federal confidentiality rul es ( The Federal rules restrict any use of the in formation to criminally investigate or prosecute any alcohol or drug abuse tracy ent. [facility] CenterIn the event this information is protected by the Federal Confidentiality of Alcohol and Drug Abuse Patient Records regulations: This inform ation has been disclosed to you from records protected by Federal confidentiality rul es ( The Federal rules restrict any use of the in formation to criminally investigate or prosecute any alcohol or drug abuse tracy ent. [facility] CenterIn the event this information is protected by the Federal Confidentiality of Alcohol and Drug Abuse Patient Records regulations: This inform ation has been disclosed to you from records protected by Federal confidentiality rul es ( The Federal rules restrict any use of the in formation to criminally investigate or prosecute any alcohol or drug abuse tracy ent. [facility] CenterIn the event this information is protected by the Federal Confidentiality of Alcohol and Drug Abuse Patient Records regulations: This inform ation has been disclosed to you from records protected by Federal confidentiality rul es ( The Federal rules restrict any use of the in formation to criminally investigate or prosecute any alcohol or drug abuse tracy ent. [facility] CenterIn the event this information is protected by the Federal Confidentiality of Alcohol and Drug Abuse Patient Records regulations: This inform ation has been disclosed to you from records protected by Federal confidentiality rul es ( The Federal rules restrict any use of the in formation to criminally investigate or prosecute any alcohol or drug abuse tracy ent. [facility] CenterIn the event this information is protected by the Federal Confidentiality of Alcohol and Drug Abuse Patient Records regulations: This inform ation has been disclosed to you from records protected by Federal confidentiality rul es ( The Federal rules restrict any use of the in formation to criminally investigate or prosecute any alcohol or drug abuse tracy ent. [facility] CenterIn the event this information is protected by the Federal Confidentiality of Alcohol and Drug Abuse Patient Records regulations: This inform ation has been disclosed to you from records protected by Federal confidentiality rul es ( The Federal rules restrict any use of the in formation to criminally investigate or prosecute any alcohol or drug abuse tracy ent. [facility] CenterIn the event this information is protected by the Federal Confidentiality of Alcohol and Drug Abuse Patient Records regulations: This inform ation has been disclosed to you from records protected by Federal confidentiality rul es ( The Federal rules restrict any use of the in formation to criminally investigate or prosecute any alcohol or drug abuse tracy ent. [facility] CenterIn the event this information is protected by the Federal Confidentiality of Alcohol and Drug Abuse Patient Records regulations: This inform ation has been disclosed to you from records protected by Federal confidentiality rul es ( The Federal rules restrict any use of the in formation to criminally investigate or prosecute any alcohol or drug abuse tracy ent. [facility] CenterIn the event this information is protected by the Federal Confidentiality of Alcohol and Drug Abuse Patient Records regulations: This inform ation has been disclosed to you from records protected by Federal confidentiality rul es ( The Federal rules restrict any use of the in formation to criminally investigate or prosecute any alcohol or drug abuse tracy ent. [facility] CenterIn the event this information is protected by the Federal Confidentiality of Alcohol and Drug Abuse Patient Records regulations: This inform ation has been disclosed to you from records protected by Federal confidentiality rul es ( The Federal rules restrict any use of the in formation to criminally investigate or prosecute any alcohol or drug abuse tracy ent. [facility] CenterIn the event this information is protected by the Federal Confidentiality of Alcohol and Drug Abuse Patient Records regulations: This inform ation has been disclosed to you from records protected by Federal confidentiality rul es ( The Federal rules restrict any use of the in formation to criminally investigate or prosecute any alcohol or drug abuse tracy ent. [facility] CenterIn the event this information is protected by the Federal Confidentiality of Alcohol and Drug Abuse Patient Records regulations: This inform ation has been disclosed to you from records protected by Federal confidentiality rul es ( The Federal rules restrict any use of the in formation to criminally investigate or prosecute any alcohol or drug abuse rtacy ent. [facility] CenterIn the event this information is protected by the Federal Confidentiality of Alcohol and Drug Abuse Patient Records regulations: This inform ation has been disclosed to you from records protected by Federal confidentiality rul es ( The Federal rules restrict any use of the in formation to criminally investigate or prosecute any alcohol or drug abuse tracy ent. [facility] CenterIn the event this information is protected by the Federal Confidentiality of Alcohol and Drug Abuse Patient Records regulations: This inform ation has been disclosed to you from records protected by Federal confidentiality rul es ( The Federal rules restrict any use of the in formation to criminally investigate or prosecute any alcohol or drug abuse tracy ent. [facility] CenterIn the event this information is protected by the Federal Confidentiality of Alcohol and Drug Abuse Patient Records regulations: This inform ation has been disclosed to you from records protected by Federal confidentiality rul es ( The Federal rules restrict any use of the in formation to criminally investigate or prosecute any alcohol or drug abuse tracy ent. [facility] CenterIn the event this information is protected by the Federal Confidentiality of Alcohol and Drug Abuse Patient Records regulations: This inform ation has been disclosed to you from records protected by Federal confidentiality rul es ( The Federal rules restrict any use of the in formation to criminally investigate or prosecute any alcohol or drug abuse tracy ent. [facility] CenterIn the event this information is protected by the Federal Confidentiality of Alcohol and Drug Abuse Patient Records regulations: This inform ation has been disclosed to you from records protected by Federal confidentiality rul es ( The Federal rules restrict any use of the in formation to criminally investigate or prosecute any alcohol or drug abuse tracy ent. [facility] CenterIn the event this information is protected by the Federal Confidentiality of Alcohol and Drug Abuse Patient Records regulations: This inform ation has been disclosed to you from records protected by Federal confidentiality rul es ( The Federal rules restrict any use of the in formation to criminally investigate or prosecute any alcohol or drug abuse tracy ent. [facility] CenterIn the event this information is protected by the Federal Confidentiality of Alcohol and Drug Abuse Patient Records regulations: This inform ation has been disclosed to you from records protected by Federal confidentiality rul es ( The Federal rules restrict any use of the in formation to criminally investigate or prosecute any alcohol or drug abuse tracy ent. [facility] CenterIn the event this information is protected by the Federal Confidentiality of Alcohol and Drug Abuse Patient Records regulations: This inform ation has been disclosed to you from records protected by Federal confidentiality rul es ( The Federal rules restrict any use of the in formation to criminally investigate or prosecute any alcohol or drug abuse tracy ent. [facility] CenterIn the event this information is protected by the Federal Confidentiality of Alcohol and Drug Abuse Patient Records regulations: This inform ation has been disclosed to you from records protected by Federal confidentiality rul es ( The Federal rules restrict any use of the in formation to criminally investigate or prosecute any alcohol or drug abuse tracy ent. [facility] CenterIn the event this information is protected by the Federal Confidentiality of Alcohol and Drug Abuse Patient Records regulations: This inform ation has been disclosed to you from records protected by Federal confidentiality rul es ( The Federal rules restrict any use of the in formation to criminally investigate or prosecute any alcohol or drug abuse tracy ent. [facility] CenterIn the event this information is protected by the Federal Confidentiality of Alcohol and Drug Abuse Patient Records regulations: This inform ation has been disclosed to you from records protected by Federal confidentiality rul es ( The Federal rules restrict any use of the in formation to criminally investigate or prosecute any alcohol or drug abuse tracy ent. [facility] CenterIn the event this information is protected by the Federal Confidentiality of Alcohol and Drug Abuse Patient Records regulations: This inform ation has been disclosed to you from records protected by Federal confidentiality rul es ( The Federal rules restrict any use of the in formation to criminally investigate or prosecute any alcohol or drug abuse tracy ent. [facility] CenterIn the event this information is protected by the Federal Confidentiality of Alcohol and Drug Abuse Patient Records regulations: This inform ation has been disclosed to you from records protected by Federal confidentiality rul es ( The Federal rules restrict any use of the in formation to criminally investigate or prosecute any alcohol or drug abuse tracy ent. [facility] CenterIn the event this information is protected by the Federal Confidentiality of Alcohol and Drug Abuse Patient Records regulations: This inform ation has been disclosed to you from records protected by Federal confidentiality rul es ( The Federal rules restrict any use of the in formation to criminally investigate or prosecute any alcohol or drug abuse tracy ent. [facility] CenterIn the event this information is protected by the Federal Confidentiality of Alcohol and Drug Abuse Patient Records regulations: This inform ation has been disclosed to you from records protected by Federal confidentiality rul es ( The Federal rules restrict any use of the in formation to criminally investigate or prosecute any alcohol or drug abuse tracy ent. [facility] CenterIn the event this information is protected by the Federal Confidentiality of Alcohol and Drug Abuse Patient Records regulations: This inform ation has been disclosed to you from records protected by Federal confidentiality rul es ( The Federal rules restrict any use of the in formation to criminally investigate or prosecute any alcohol or drug abuse tracy ent. [facility] CenterIn the event this information is protected by the Federal Confidentiality of Alcohol and Drug Abuse Patient Records regulations: This inform ation has been disclosed to you from records protected by Federal confidentiality rul es ( The Federal rules restrict any use of the in formation to criminally investigate or prosecute any alcohol or drug abuse tracy ent. [facility] CenterIn the event this information is protected by the Federal Confidentiality of Alcohol and Drug Abuse Patient Records regulations: This inform ation has been disclosed to you from records protected by Federal confidentiality rul es ( The Federal rules restrict any use of the in formation to criminally investigate or prosecute any alcohol or drug abuse tracy ent. [facility] the event this information is protected by the Federal Confidentiality of Alcohol and Drug Abuse Patient Records regulations: This inform ation has been disclosed to you from records protected by Federal confidentiality rul es ( The Federal rules restrict any use of the in formation to criminally investigate or prosecute any alcohol or drug abuse tracy ent. [facility] CenterIn the event this information is protected by the Federal Confidentiality of Alcohol and Drug Abuse Patient Records regulations: This inform ation has been disclosed to you from records protected by Federal confidentiality rul es ( The Federal rules restrict any use of the in formation to criminally investigate or prosecute any alcohol or drug abuse tracy ent. [facility] CenterIn the event this information is protected by the Federal Confidentiality of Alcohol and Drug Abuse Patient Records regulations: This inform ation has been disclosed to you from records protected by Federal confidentiality rul es ( The Federal rules restrict any use of the in formation to criminally investigate or prosecute any alcohol or drug abuse tracy ent. [facility] CenterIn the event this information is protected by the Federal Confidentiality of Alcohol and Drug Abuse Patient Records regulations: This inform ation has been disclosed to you from records protected by Federal confidentiality rul es ( The Federal rules restrict any use of the in formation to criminally investigate or prosecute any alcohol or drug abuse tracy ent. [facility] CenterIn the event this information is protected by the Federal Confidentiality of Alcohol and Drug Abuse Patient Records regulations: This inform ation has been disclosed to you from records protected by Federal confidentiality rul es ( The Federal rules restrict any use of the in formation to criminally investigate or prosecute any alcohol or drug abuse tracy ent. [facility] CenterIn the event this information is protected by the Federal Confidentiality of Alcohol and Drug Abuse Patient Records regulations: This inform ation has been disclosed to you from records protected by Federal confidentiality rul es ( The Federal rules restrict any use of the in formation to criminally investigate or prosecute any alcohol or drug abuse tracy ent. [facility] CenterIn the event this information is protected by the Federal Confidentiality of Alcohol and Drug Abuse Patient Records regulations: This inform ation has been disclosed to you from records protected by Federal confidentiality rul es ( The Federal rules restrict any use of the in formation to criminally investigate or prosecute any alcohol or drug abuse tracy ent. [facility] CenterIn the event this information is protected by the Federal Confidentiality of Alcohol and Drug Abuse Patient Records regulations: This inform ation has been disclosed to you from records protected by Federal confidentiality rul es ( The Federal rules restrict any use of the in formation to criminally investigate or prosecute any alcohol or drug abuse tracy ent. [facility] CenterIn the event this information is protected by the Federal Confidentiality of Alcohol and Drug Abuse Patient Records regulations: This inform ation has been disclosed to you from records protected by Federal confidentiality rul es ( The Federal rules restrict any use of the in formation to criminally investigate or prosecute any alcohol or drug abuse tracy ent. [facility] CenterIn the event this information is protected by the Federal Confidentiality of Alcohol and Drug Abuse Patient Records regulations: This inform ation has been disclosed to you from records protected by Federal confidentiality rul es ( The Federal rules restrict any use of the in formation to criminally investigate or prosecute any alcohol or drug abuse tracy ent. [facility] CenterIn the event this information is protected by the Federal Confidentiality of Alcohol and Drug Abuse Patient Records regulations: This inform ation has been disclosed to you from records protected by Federal confidentiality rul es ( The Federal rules restrict any use of the in formation to criminally investigate or prosecute any alcohol or drug abuse tracy ent. [facility] CenterIn the event this information is protected by the Federal Confidentiality of Alcohol and Drug Abuse Patient Records regulations: This inform ation has been disclosed to you from records protected by Federal confidentiality rul es ( The Federal rules restrict any use of the in formation to criminally investigate or prosecute any alcohol or drug abuse tracy ent. [facility] CenterIn the event this information is protected by the Federal Confidentiality of Alcohol and Drug Abuse Patient Records regulations: This inform ation has been disclosed to you from records protected by Federal confidentiality rul es ( The Federal rules restrict any use of the in formation to criminally investigate or prosecute any alcohol or drug abuse tracy ent. [facility] CenterIn the event this information is protected by the Federal Confidentiality of Alcohol and Drug Abuse Patient Records regulations: This inform ation has been disclosed to you from records protected by Federal confidentiality rul es ( The Federal rules restrict any use of the in formation to criminally investigate or prosecute any alcohol or drug abuse tracy ent. [facility] CenterIn the event this information is protected by the Federal Confidentiality of Alcohol and Drug Abuse Patient Records regulations: This inform ation has been disclosed to you from records protected by Federal confidentiality rul es ( The Federal rules restrict any use of the in formation to criminally investigate or prosecute any alcohol or drug abuse tracy ent. [facility] CenterIn the event this information is protected by the Federal Confidentiality of Alcohol and Drug Abuse Patient Records regulations: This inform ation has been disclosed to you from records protected by Federal confidentiality rul es ( The Federal rules restrict any use of the in formation to criminally investigate or prosecute any alcohol or drug abuse tracy ent. [facility] CenterIn the event this information is protected by the Federal Confidentiality of Alcohol and Drug Abuse Patient Records regulations: This inform ation has been disclosed to you from records protected by Federal confidentiality rul es ( The Federal rules restrict any use of the in formation to criminally investigate or prosecute any alcohol or drug abuse tracy ent. [facility] CenterIn the event this information is protected by the Federal Confidentiality of Alcohol and Drug Abuse Patient Records regulations: This inform ation has been disclosed to you from records protected by Federal confidentiality rul es ( The Federal rules restrict any use of the in formation to criminally investigate or prosecute any alcohol or drug abuse tracy ent. [facility] CenterIn the event this information is protected by the Federal Confidentiality of Alcohol and Drug Abuse Patient Records regulations: This inform ation has been disclosed to you from records protected by Federal confidentiality rul es ( The Federal rules restrict any use of the in formation to criminally investigate or prosecute any alcohol or drug abuse tracy ent. [facility] CenterIn the event this information is protected by the Federal Confidentiality of Alcohol and Drug Abuse Patient Records regulations: This inform ation has been disclosed to you from records protected by Federal confidentiality rul es ( The Federal rules restrict any use of the in formation to criminally investigate or prosecute any alcohol or drug abuse tracy ent. [facility] CenterIn the event this information is protected by the Federal Confidentiality of Alcohol and Drug Abuse Patient Records regulations: This inform ation has been disclosed to you from records protected by Federal confidentiality rul es ( The Federal rules restrict any use of the in formation to criminally investigate or prosecute any alcohol or drug abuse tracy ent. [facility] CenterIn the event this information is protected by the Federal Confidentiality of Alcohol and Drug Abuse Patient Records regulations: This inform ation has been disclosed to you from records protected by Federal confidentiality rul es ( The Federal rules restrict any use of the in formation to criminally investigate or prosecute any alcohol or drug abuse tracy ent. [facility] CenterIn the event this information is protected by the Federal Confidentiality of Alcohol and Drug Abuse Patient Records regulations: This inform ation has been disclosed to you from records protected by Federal confidentiality rul es ( The Federal rules restrict any use of the in formation to criminally investigate or prosecute any alcohol or drug abuse tracy ent. [facility] CenterIn the event this information is protected by the Federal Confidentiality of Alcohol and Drug Abuse Patient Records regulations: This inform ation has been disclosed to you from records protected by Federal confidentiality rul es ( The Federal rules restrict any use of the in formation to criminally investigate or prosecute any alcohol or drug abuse tracy ent. [facility] CenterIn the event this information is protected by the Federal Confidentiality of Alcohol and Drug Abuse Patient Records regulations: This inform ation has been disclosed to you from records protected by Federal confidentiality rul es ( The Federal rules restrict any use of the in formation to criminally investigate or prosecute any alcohol or drug abuse tracy ent. [facility] CenterIn the event this information is protected by the Federal Confidentiality of Alcohol and Drug Abuse Patient Records regulations: This inform ation has been disclosed to you from records protected by Federal confidentiality rul es ( The Federal rules restrict any use of the in formation to criminally investigate or prosecute any alcohol or drug abuse tracy ent. [facility] CenterIn the event this information is protected by the Federal Confidentiality of Alcohol and Drug Abuse Patient Records regulations: This inform ation has been disclosed to you from records protected by Federal confidentiality rul es ( The Federal rules restrict any use of the in formation to criminally investigate or prosecute any alcohol or drug abuse tracy ent. [facility] CenterIn the event this information is protected by the Federal Confidentiality of Alcohol and Drug Abuse Patient Records regulations: This inform ation has been disclosed to you from records protected by Federal confidentiality rul es ( The Federal rules restrict any use of the in formation to criminally investigate or prosecute any alcohol or drug abuse tracy ent. [facility] CenterIn the event this information is protected by the Federal Confidentiality of Alcohol and Drug Abuse Patient Records regulations: This inform ation has been disclosed to you from records protected by Federal confidentiality rul es ( The Federal rules restrict any use of the in formation to criminally investigate or prosecute any alcohol or drug abuse tracy ent. [facility] CenterIn the event this information is protected by the Federal Confidentiality of Alcohol and Drug Abuse Patient Records regulations: This inform ation has been disclosed to you from records protected by Federal confidentiality rul es ( The Federal rules restrict any use of the in formation to criminally investigate or prosecute any alcohol or drug abuse tracy ent. [facility] CenterIn the event this information is protected by the Federal Confidentiality of Alcohol and Drug Abuse Patient Records regulations: This inform ation has been disclosed to you from records protected by Federal confidentiality rul es ( The Federal rules restrict any use of the in formation to criminally investigate or prosecute any alcohol or drug abuse tracy ent. [facility] CenterIn the event this information is protected by the Federal Confidentiality of Alcohol and Drug Abuse Patient Records regulations: This inform ation has been disclosed to you from records protected by Federal confidentiality rul es ( The Federal rules restrict any use of the in formation to criminally investigate or prosecute any alcohol or drug abuse tracy ent. [facility] CenterIn the event this information is protected by the Federal Confidentiality of Alcohol and Drug Abuse Patient Records regulations: This inform ation has been disclosed to you from records protected by Federal confidentiality rul es ( The Federal rules restrict any use of the in formation to criminally investigate or prosecute any alcohol or drug abuse tracy ent. [facility] CenterIn the event this information is protected by the Federal Confidentiality of Alcohol and Drug Abuse Patient Records regulations: This inform ation has been disclosed to you from records protected by Federal confidentiality rul es ( The Federal rules restrict any use of the in formation to criminally investigate or prosecute any alcohol or drug abuse tracy ent. [facility]In the event this information is protected by the Federal Confidentiality of Alcohol and Drug Abuse Patient Records regulations: This inform ation has been disclosed to you from records protected by Federal confidentiality rul es ( The Federal rules restrict any use of the in formation to criminally investigate or prosecute any alcohol or drug abuse tracy ent. [facility] CenterIn the event this information is protected by the Federal Confidentiality of Alcohol and Drug Abuse Patient Records regulations: This inform ation has been disclosed to you from records protected by Federal confidentiality rul es ( The Federal rules restrict any use of the in formation to criminally investigate or prosecute any alcohol or drug abuse tracy ent. [facility] CenterIn the event this information is protected by the Federal Confidentiality of Alcohol and Drug Abuse Patient Records regulations: This inform ation has been disclosed to you from records protected by Federal confidentiality rul es ( The Federal rules restrict any use of the in formation to criminally investigate or prosecute any alcohol or drug abuse tracy ent. [facility]In the event this information is protected by the Federal Confidentiality of Alcohol and Drug Abuse Patient Records regulations: This inform ation has been disclosed to you from records protected by Federal confidentiality rul es ( The Federal rules restrict any use of the in formation to criminally investigate or prosecute any alcohol or drug abuse tracy ent. [facility]In the event this information is protected by the Federal Confidentiality of Alcohol and Drug Abuse Patient Records regulations: This inform ation has been disclosed to you from records protected by Federal confidentiality rul es ( The Federal rules restrict any use of the in formation to criminally investigate or prosecute any alcohol or drug abuse tracy ent. [facility]In the event this information is protected by the Federal Confidentiality of Alcohol and Drug Abuse Patient Records regulations: This inform ation has been disclosed to you from records protected by Federal confidentiality rul es ( The Federal rules restrict any use of the in formation to criminally investigate or prosecute any alcohol or drug abuse tracy ent. [facility]In the event this information is protected by the Federal Confidentiality of Alcohol and Drug Abuse Patient Records regulations: This inform ation has been disclosed to you from records protected by Federal confidentiality rul es ( The Federal rules restrict any use of the in formation to criminally investigate or prosecute any alcohol or drug abuse tracy ent. [facility] CenterIn the event this information is protected by the Federal Confidentiality of Alcohol and Drug Abuse Patient Records regulations: This inform ation has been disclosed to you from records protected by Federal confidentiality rul es ( The Federal rules restrict any use of the in formation to criminally investigate or prosecute any alcohol or drug abuse tracy ent. [facility] CenterIn the event this information is protected by the Federal Confidentiality of Alcohol and Drug Abuse Patient Records regulations: This inform ation has been disclosed to you from records protected by Federal confidentiality rul es ( The Federal rules restrict any use of the in formation to criminally investigate or prosecute any alcohol or drug abuse tracy ent. [facility] CenterIn the event this information is protected by the Federal Confidentiality of Alcohol and Drug Abuse Patient Records regulations: This inform ation has been disclosed to you from records protected by Federal confidentiality rul es ( The Federal rules restrict any use of the in formation to criminally investigate or prosecute any alcohol or drug abuse tracy ent. [facility] CenterIn the event this information is protected by the Federal Confidentiality of Alcohol and Drug Abuse Patient Records regulations: This inform ation has been disclosed to you from records protected by Federal confidentiality rul es ( The Federal rules restrict any use of the in formation to criminally investigate or prosecute any alcohol or drug abuse tracy ent. [facility] Reason for Visit (unrecognized section [...] medications and diabetic supplies be sent to [facility] in [place]. Reason Onset Date Comments Refill Request 07/24/2022 Reason Comments Consult Colonoscopy Reason Onset Date Comments Refill Request 07/05/2022 Refill Request 08/16/2022 Reason Onset Date Comments Refill Request 08/27/2022 Reason Onset Date Comments Refill Request 10/04/2022 Reason Comments Prescription Clarification Reason Comments Results No answer and VM not set up. [employer] message sent to request patient call in [...] TCM Pharmacy-Hosp[facility] l discharge 01/16/23 Reason Comments Penitentiary Reason Onset Date Comments Transition Of Care [...] Comments Transition Of Care 02/21/2023 TCM Initial [facility] Hospital Discharge 02/20/23 Specialty Diagnoses / Procedures Referred By Contact Refer red To Contact [facility] Home Care IND [address] [place] [address] Phone: Referral ID Status Reason Start Date Expiration Date Visits Requ ested Visits Authorized [id number] 1 1 Care Teams (unrecognized section and con tent) Salesperson [employer]iances Relationship Specialty Start Date End Date Panfilo Oreilly MD PCP - General Family Practice 02/12/17 [address] [place], [place] [address] Shreya Mccray Endocrinology 07/23/18 [place] Specialty Senior Engineering Associate Pulmonary Disease 12/23/18 [address] [place], [place] [address] Brandee Cotter (Manager Change) Consulting Endocrinology 11/09/19 [address], [place] [id number] [place] Consulting Pulmonary Disease 11/12/19 [address] [place] [address] Robert Sanchez, [facility] Pharmacist Pharmacy 09/06/21 [address] [place] [address] [facility] 12/17/17 [facility] 07/23/18 [facility] 06/20/20 Salesperson [employer] Relationship Specialty Start Date End Date Panfilo Oreilly MD PCP - General Family Practice 02/12/17 [address] [place] [address] Shreya Mccray Endocrinology 07/23/18 [place] Specialty Senior Engineering Associate Pulmonary Disease 12/23/18 [address] [place] [place] [address] Brandee Cotter (Manager Change) Consulting Endocrinology 11/09/19 [address] [place] [address] [place] Consulting Pulmonary Disease 11/12/19 [address] [place] [address] Robert Sanchez [facility] Pharmacist Pharmacy 09/06/21 [address] [place] [address] [employer] 12/17/17 [facility] 07/23/18 [facility] 06/20/20 Salesperson [employer] Relationship Specialty Start Date End Date Panfilo Oreilly MD PCP - General Family Practice 02/12/17 [address] [facility] [place] [address] Shreya Mccray Endocrinology 07/23/18 [place] Specialty Senior Engineering Associate Pulmonary Disease 12/23/18 [address] [place] [address] Brandee Cotter (Manager Change) Consulting Endocrinology 11/09/19 [address] [place] [address] [place] Consulting Pulmonary Disease 11/12/19 [address] [place] [address] Robert Sanchez, [facility] Pharmacist Pharmacy 09/06/21 [address] [place] [address] [employer] 12/17/17 [facility] 07/23/18 [facility] 06/20/20 Salesperson [employer] Relationship Specialty Start Date End Date Panfilo Oreilly MD PCP - General Family Practice 02/12/17 [address] [facility] [place] [address] Shreya Mccray Endocrinology 07/23/18 [place] Specialty Senior Engineering Associate Pulmonary Disease 12/23/18 [address] [place] [address] Brandee Cotter (Manager Change) Consulting Endocrinology 11/09/19 [address] [place] [address] [place] Consulting Pulmonary Disease 11/12/19 [address] [place] [address] Robert Sanchez, [facility] Pharmacist Pharmacy 09/06/21 [address] [place] [address] [employer] 12/17/17 [facility] 07/23/18 [facility] 06/20/20 Salesperson [employer] Appl[employer] Relationship Specialty Start Date End Date Panfilo Oreilly MD PCP - General Family Practice 02/12/17 [address] [place] [address] Shreya Mccray Endocrinology 07/23/18 [place] Specialty Senior Engineering Associate Pulmonary Disease 12/23/18 [address] [place] [address] Brandee Cotter (Manager Change) Consulting Endocrinology 11/09/19 [address] [place] [address] [place] Consulting Pulmonary Disease 11/12/19 [address] [place] [address] Robert Sanchez, [facility] Pharmacist Pharmacy 09/06/21 [address] [place] [address] [employer] 12/17/17 [facility] 07/23/18 [facility] 06/20/20 Salesperson House[employer] Appliances Relationship Specialty Start Date End Date Panfilo Oreilly MD PCP - General Family Practice 02/12/17 [address] [facility] [place] [address] Shreya Mccray Endocrinology 07/23/18 [place] Specialty Senior Engineering Associate Pulmonary Disease 12/23/18 [address] [place] [address] Brandee Cotter (Manager Change) Consulting Endocrinology 11/09/19 [address], [place] [id number] [place] Consulting Pulmonary Disease 11/12/19 [address] [place] [address] [facility] 09/06/21 [address] [place] [address] [employer] 12/17/17 [facility] 07/23/18 [facility] 06/20/20 Salesperson House[employer] Appliances Relationship Specialty Start Date End Date Panfilo Oreilly MD PCP - General Family Practice 02/12/17 [address] [place] [address] Shreya Mccray Endocrinology 07/23/18 [place] Specialty Senior Engineering Associate Pulmonary Disease 12/23/18 [address] [place] [address] Brandee Cotter (Manager Change) Consulting Endocrinology 11/09/19 [address] [place] [address] [employer] Consulting Pulmonary Disease 11/12/19 [address] [place] [address] Robert Sanchez [facility] Pharmacist Pharmacy 09/06/21 [address] [place] [address] [employer] 12/17/17 [facility] 07/23/18 [facility] 06/20/20 Salesperson Household Appliances Relationship Specialty Start Date End Date Panfilo Oreilly MD PCP - General Family Practice 02/12/17 [address] [place] [address] Shreya Mccray Endocrinology 07/23/18 [employer] Specialty Senior Engineering Associate Pulmonary Disease 12/23/18 [address] [place] [address] Brandee Cotter (Manager Change) Consulting Endocrinology 11/09/19 [address] [place] [address] [employer] Consult[employer] Pulmonary Disease 11/12/19 [address] [place] [place] [address] Robert Sanchez [facility] Pharmacist Pharmacy 09/06/21 [address] [place] [address] [employer] 12/17/17 [facility] 07/23/18 [facility] 06/20/20 Salesperson Household Appliances Relationship Specialty Start Date End Date Panfilo Oreilly MD PCP - General Family Practice 02/12/17 [address] [place] [address] Shreya Mccray Endocrinology 07/23/18 [employer] Senior Engineering Associate Pulmonary Disease 12/23/18 [address] [place] [address] Brandee Cotter (Manager Change) Consulting Endocrinology 11/09/19 [address], [place] [id number] [employer] Consulting Pulmonary Disease 11/12/19 [address] [place] [address] Robert Sanchez, [facility] Pharmacist Pharmacy 09/06/21 [address] [place] [address] [employer] 12/17/17 [facility] 07/23/18 [facility] 06/20/20 Salesperson Household Appliances Relationship Specialty Start Date End Date Panfilo Oreilly MD PCP - General Family Practice 02/12/17 [address] [facility] [place] [address] Shreya Mccray Endocrinology 07/23/18 [employer] Senior Engineering Associate Pulmonary Disease 12/23/18 [address] [place] [address] Brandee Cotter (Manager Change) Consulting Endocrinology 11/09/19 [address], [place] [id number] [employer] Consulting Pulmonary Disease 11/12/19 [address] [place] [address] Robert Sanchez [facility] Pharmacist Pharmacy 09/06/21 [address] [facility] [place] [address] [employer] 12/17/17 [facility] 07/23/18 [facility] 06/20/20 Salesperson Household Appliances Relationship Specialty Start Date End Date Panfilo Oreilly MD PCP - General Family Practice 02/12/17 [address] [place] [address] Shreya Mccray Endocrinology 07/23/18 [employer] Specialty Senior Engineering Associate Pulmonary Disease 12/23/18 [address] [place] [address] Brandee Cotter (Manager Change) Consulting Endocrinology 11/09/19 [address] [place] [address] [employer] Consulting Pulmonary Disease 11/12/19 [address] [place] [address] Robert Sanchez [facility] Pharmacist Pharmacy 09/06/21 [address] [place] [address] [employer] 12/17/17 [facility] 07/23/18 [facility] 06/20/20 Salesperson Household Appliances Relationship Specialty Start Date End Date Panfilo Oreilly MD PCP - General Family Practice 02/12/17 [address] [facility] [place] [address] Shreya Mccray Endocrinology 07/23/18 [employer] Specialty Senior Engineering Associate Pulmonary Disease 12/23/18 [address] [place] [address] Brandee Cotter (Manager Change) Consulting Endocrinology 11/09/19 [address], [place] [id number] [employer] Consulting Pulmonary Disease 11/12/19 [address] [place] [address] Robert Sanchez, [facility] Pharmacist Pharmacy 09/06/21 [address] [place] [address] [employer] 12/17/17 [facility] 07/23/18 [facility] 06/20/20 Salesperson Household Appliances Relationship Specialty Start Date End Date Panfilo Oreilly MD PCP - General Family Practice 02/12/17 [address] [place] [address] Shreya Mccray Endocrinology 07/23/18 [employer] Special[employer] Senior Engineering Associate Pulmonary Disease 12/23/18 [address] [place] [address] Brandee Cotter (Manager Change) Consulting Endocrinology 11/09/19 [address] [place] [address] [employer] Consulting Pulmonary Disease 11/12/19 [address] [place] [address] Robert Sanchez [facility] Pharmacist Pharmacy 09/06/21 [address] [place] [address] [employer] 12/17/17 [facility] 07/23/18 [facility] 06/20/20 Salesperson Household Appliances Relationship Specialty Start Date End Date Panfilo Oreilly MD PCP - General Family Practice 02/12/17 [address] [place] [address] Shreya Mccray Endocrinology 07/23/18 [employer] Specialty Senior Engineering Associate Pulmonary Disease 12/23/18 [address] [place] [address] Brandee Cotter (Manager Change) Consulting Endocrinology 11/09/19 [address] [place] [address] [employer] Consulting Pulmonary Disease 11/12/19 [address] [place] [address] Robert Sanchez, [facility] Pharmacist Pharmacy 09/06/21 [address] [place] [address] [employer] 12/17/17 [facility] 07/23/18 [facility] 06/20/20 Salesperson Household Appliances Relationship Specialty Start Date End Date Panfilo Oreilly MD PCP - General Family Practice 02/12/17 [address] [place] [address] Shreya Mccray Endocrinology 07/23/18 [employer] Specialty Senior Engineering Associate Pulmonary Disease 12/23/18 [address] [place] [address] Brandee Cotter (Manager Change) Consulting Endocrinology 11/09/19 [address], [place] [id number] [employer] Consulting Pulmonary Disease 11/12/19 [address] [place] [address] Robert Sanchez [facility] Pharmacist Pharmacy 09/06/21 [address] [place] [address] [employer] 12/17/17 [facility] 07/23/18 [facility] 06/20/20 Salesperson Household Appliances Relationship Specialty Start Date End Date Panfilo Oreilly MD PCP - General Family Practice 02/12/17 [address] [place] [address] Shreya Mccray Endocrinology 07/23/18 [employer] Specialty Senior Engineering Associate Pulmonary Disease 12/23/18 [address] [place] [address] Brandee Cotter (Manager Change) Consulting Endocrinology 11/09/19 [address] [place] [address] [employer] Consulting Pulmonary Disease 11/12/19 [address] [place] [address] [facility] 09/06/21 [address] [place] [address] [employer] 12/17/17 [facility] 07/23/18 [facility] 06/20/20 Salesperson Household Appliances Relationship Specialty Start Date End Date Panfilo Oreilly MD PCP - General Family Practice 02/12/17 [address] [place] [address] Shreya Mccray Endocrinology 07/23/18 [employer] Specialty Senior Engineering Associate Pulmonary Disease 12/23/18 [address] [place] [address] Brandee Cotter (Manager Change) Consulting Endocrinology 11/09/19 [address] [place] [address] [employer] Consulting Pulmonary Disease 11/12/19 [address] [place] [address] [facility] 09/06/21 [address] [place] [address] [employer] 12/17/17 [facility] 07/23/18 [facility] 06/20/20 Salesperson Household Appliances Relationship Specialty Start Date End Date Panfilo Oreilly MD PCP - General Family Practice 02/12/17 [address] [place] [address] Shreya Mccray MD Endocrinology 07/23/18 [employer] Specialty Senior Engineering Associate Pulmonary Disease 12/23/18 [address] [place] [address] Brandee Cotter (Manager Change) Consulting Endocrinology 11/09/19 [address], [place] [id number] [employer] Consulting Pulmonary Disease 11/12/19 [address] [place] [address] Robert Sanchez [facility] Pharmacist Pharmacy 09/06/21 [address] [place] [address] [employer] 12/17/17 [facility] 07/23/18 [facility] 06/20/20 Salesperson Household Appliances Relationship Specialty Start Date End Date Panfilo Oreilly MD PCP - General Family Practice 02/12/17 [address] [facility] [address] Shreya Mccray MD Endocrinology 07/23/18 [employer] Specialty Senior Engineering Associate Pulmonary Disease 12/23/18 [address] [place] [address] Brandee Cotter (Manager Change) Consulting Endocrinology 11/09/19 [address] [place] [address] [employer] Consulting Pulmonary Disease 11/12/19 [address] [place] [address] [facility] 09/06/21 [address] [facility] [place] [place] [address] [employer] 12/17/17 [facility] 07/23/18 [facility] 06/20/20 Salesperson Household Appliances Relationship Specialty Start Date End Date Panfilo Oreilly MD PCP - General Family Practice 02/12/17 [address] [facility] [place] [address] Shreya Mccray MD Endocrinology 07/23/18 [employer] Specialty Senior Engineering Associate Pulmonary Disease 12/23/18 [address] [place] [address] Brandee Cotter (Manager Change) Consulting Endocrinology 11/09/19 [address] [place] [address] [employer] Consulting Pulmonary Disease 11/12/19 [address] [place] [address] Robert Sanchez [facility] Pharmacist Pharmacy 09/06/21 [address] [place] [address] [employer] 12/17/17 [facility] 07/23/18 [facility] 06/20/20 Salesperson Household Appliances Relationship Specialty Start Date End Date Panfilo Oreilly MD PCP - General Family Practice 02/12/17 [address] [place] [address] Shreya Mccray MD Endocrinology 07/23/18 [employer] Specialty Senior Engineering Associate Pulmonary Disease 12/23/18 [address] [place] [address] Brandee Cotter (Manager Change) Consulting Endocrinology 11/09/19 [address] [place] [address] [employer] Consulting Pulmonary Disease 11/12/19 [address] [place] [address] Robert Sanchez [facility] Pharmacist Pharmacy 09/06/21 [address] [place] [address] [employer] 12/17/17 [facility] 07/23/18 [facility] 06/20/20 Salesperson Household Appliances Relationship Specialty Start Date End Date Panfilo Oreilly MD PCP - General Family Practice 02/12/17 [address] [place] [address] Shreya Mccray MD Endocrinology 07/23/18 [employer] Specialty Senior Engineering Associate Pulmonary Disease 12/23/18 [address] [place] [address] Brandee Cotter (Manager Change) Consulting Endocrinology 11/09/19 [address] [place] [address] [employer] Consulting Pulmonary Disease 11/12/19 [address] [place] [address] Robert Sanchez, [facility] Pharmacist Pharmacy 09/06/21 [address] [place] [address] [employer] 12/17/17 [facility] 07/23/18 [facility] 06/20/20 Salesperson Household Appliances Relationship Specialty Start Date End Date Panfilo Oreilly MD PCP - General Family Practice 02/12/17 [address] [place] [address] Shreya Mccray MD Endocrinology 07/23/18 [employer] Specialty Senior Engineering Associate Pulmonary Disease 12/23/18 [address] [place] [address] Brandee Cotter (Manager Change) Consulting Endocrinology 11/09/19 [address] [place] [address] [employer] Consulting Pulmonary Disease 11/12/19 [address] [place] [address] Robert Sanchez [facility] Pharmacist Pharmacy 09/06/21 [address] [place] [address] [employer] 12/17/17 [facility] 07/23/18 [facility] 06/20/20 Salesperson Household Appliances Relationship Specialty Start Date End Date Panfilo Oreilly MD PCP - General Family Practice 02/12/17 [address] [place] [address] Shreya Mccray MD Endocrinology 07/23/18 [employer] Specialty Senior Engineering Associate Pulmonary Disease 12/23/18 [address] [place] [address] Brandee Cotter (Manager Change) Consulting Endocrinology 11/09/19 [address], [place] [id number] [employer] Consulting Pulmonary Disease 11/12/19 [address] [place] [address] Robert Sanchez [facility] Pharmacist Pharmacy 09/06/21 [address] [place] [address] [employer] 12/17/17 [facility] 07/23/18 [facility] 06/20/20 Salesperson Household Appliances Relationship Specialty Start Date End Date Panfilo Oreilly MD PCP - General Family Practice 02/12/17 [address] [place] [address] Shreya Mccray MD Endocrinology 07/23/18 [employer] Specialty Senior Engineering Associate Pulmonary Disease 12/23/18 [address] [place] [address] Brandee Cotter (Manager Change) Consulting Endocrinology 11/09/19 [address] [place] [address] [employer] Consulting Pulmonary Disease 11/12/19 [address] [place] [address] Robert Sanchez, [facility] Pharmacist Pharmacy 09/06/21 [address] [facility] [place] [place] [address] [employer] 12/17/17 [facility] 07/23/18 [facility] 06/20/20 Salesperson Household Appliances Relationship Specialty Start Date End Date Panfilo Oreilly MD PCP - General Family Medicine 02/12/17 [address] [facility] [place] [address] Shreya Mccray MD Endocrinology 07/23/18 [employer] Specialty Senior Engineering Associate Pulmonary Disease 12/23/18 [address] [place] [address] Brandee Cotter (Manager Change) Consulting Endocrinology 11/09/19 [address] [place] [address] [employer] Consulting Pulmonary Disease 11/12/19 [address] [place] [address] Robert Sanchez [facility] Pharmacist Pharmacy 09/06/21 [address] [place] [address] [employer] 12/17/17 [facility] 07/23/18 [facility] 06/20/20 Salesperson Household Appliances Relationship Specialty Start Date End Date Panfilo Oreilly MD PCP - General Family Medicine 02/12/17 [address] [place] [address] Shreya Mccray MD Endocrinology 07/23/18 [employer] Specialty Senior Engineering Associate Pulmonary Disease 12/23/18 [address] [place] [address] Brandee Cotter (Manager Change) Consulting Endocrinology 11/09/19 [address], [place] [id number] [employer] Consulting Pulmonary Disease 11/12/19 [address] [place] [address] Robert Sanchez [facility] Pharmacist Pharmacy 09/06/21 [address] [place] [address] [employer] 12/17/17 [facility] 07/23/18 [facility] 06/20/20 Salesperson Household Appliances Relationship Specialty Start Date End Date Panfilo Oreilly MD PCP - General Family Medicine 02/12/17 [address] [place] [address] Shreya Mccray MD Endocrinology 07/23/18 [employer] Specialty Senior Engineering Associate Pulmonary Disease 12/23/18 [address] [place] [address] Brandee Cotter (Manager Change) Consulting Endocrinology 11/09/19 [address], [place] [id number] [place] [employer] Consulting Pulmonary Disease 11/12/19 [address] [place] [address] Robert Sanchez [facility] Pharmacist Pharmacy 09/06/21 [address] [place] [address] [employer] 12/17/17 [facility] 07/23/18 [facility] 06/20/20 Salesperson Household Appliances Relationship Specialty Start Date End Date Panfilo Oreilly MD PCP - General Family Medicine 02/12/17 [address] [place] [address] Shreya Mccray MD Endocrinology 07/23/18 [employer] Specialty Senior Engineering Associate Pulmonary Disease 12/23/18 [address] [place] [address] Brandee Cotter (Manager Change) Consulting Endocrinology 11/09/19 [address], [place] [id number] [place] [employer] Consulting Pulmonary Disease 11/12/19 [address] [place] [address] Robert Sanchez [facility] Pharmacist Pharmacy 09/06/21 [address] [place] [address] [employer] 12/17/17 [facility] 07/23/18 [facility] 06/20/20 Salesperson Household Appliances Relationship Specialty Start Date End Date Panfilo Oreilly MD PCP - General Family Medicine 02/12/17 [address] [place] [address] Shreya Mccray MD Endocrinology 07/23/18 [employer] Specialty Senior Engineering Associate Pulmonary Disease 12/23/18 [address] [place] [address] Brandee Cotter (Manager Change) Consulting Endocrinology 11/09/19 [address] [place] [address] [employer] Consulting Pulmonary Disease 11/12/19 [address] [place] [address] Robert Sanchez [facility] Pharmacist Pharmacy 09/06/21 [address] [place] [address] [employer] 12/17/17 [facility] 07/23/18 [facility] 06/20/20 Salesperson Household Appliances Relationship Specialty Start Date End Date Panfilo Oreilly MD PCP - General Family Medicine 02/12/17 [address] [facility] [place] [place] [address] Shreya Mccray MD Endocrinology 07/23/18 [address] [facility] [place] [place] [address] [employer] Specialty Senior Engineering Associate Pulmonary Disease 12/23/18 [address] [place] [address] Brandee Cotter (Manager Change) Consulting Endocrinology 11/09/19 [address], [place] [id number] [place] [employer] Consulting Pulmonary Disease 11/12/19 [address] [place] [address] Robert Sanchez, [facility] Pharmacist Pharmacy 09/06/21 [address] [place] [address] [employer] 12/17/17 [facility] 07/23/18 [facility] 06/20/20 Salesperson Household Appliances Relationship Specialty Start Date End Date Panfilo Oreilly MD PCP - General Family Medicine 02/12/17 [address] [facility] [place] [place] [address] Shreya Mccray MD Endocrinology 07/23/18 [address] [facility] [place] [place] [address] [employer] Specialty Senior Engineering Associate Pulmonary Disease 12/23/18 [address] [address] Brandee Cotter (Manager Change) Consulting Endocrinology 11/09/19 [address] [place] [address] [employer] Consulting Pulmonary Disease 11/12/19 [address] [place] [address] Robert Sanchez [facility] Pharmacist Pharmacy 09/06/21 [address] [place] [address] [employer] 12/17/17 [facility] 07/23/18 [facility] 06/20/20 Salesperson Household Appliances Relationship Specialty Start Date End Date Panfilo Oreilly MD PCP - General Family Medicine 02/12/17 [address] [place] [address] Shreya Mccray MD Endocrinology 07/23/18 [address] [place] [address] [employer] Specialty Senior Engineering Associate Pulmonary Disease 12/23/18 [address] [place] [address] Brandee Cotter (Manager Change) Consulting Endocrinology 11/09/19 [address] [place] [address] [employer] Consulting Pulmonary Disease 11/12/19 [address] [place] [address] Robert Sanchez, [facility] Pharmacist Pharmacy 09/06/21 [address] [place] [address] [employer] 12/17/17 [facility] 07/23/18 [facility] 06/20/20 Salesperson Household Appliances Relationship Specialty Start Date End Date Panfilo Oreilly MD PCP - General Family Medicine 02/12/17 [address] [facility] [place] [address] Shreya Mccray MD Endocrinology 07/23/18 [address] [facility] [place] [place] [address] [employer] Specialty Senior Engineering Associate Pulmonary Disease 12/23/18 [address] [place] [address] Brandee Cotter (Manager Change) Consulting Endocrinology 11/09/19 [address], [place] [id number] [employer] Consulting Pulmonary Disease 11/12/19 [address] [place] [address] Robert Sanchez [facility] Pharmacist Pharmacy 09/06/21 [address] [place] [address] [employer] 12/17/17 [facility] 07/23/18 [facility] 06/20/20 Salesperson Household Appliances Relationship Specialty Start Date End Date Panfilo Oreilly MD PCP - General Family Medicine 02/12/17 [address] [place] [address] Shreya Mccray MD Endocrinology 07/23/18 [address] [place] [address] [employer] Specialty Senior Engineering Associate Pulmonary Disease 12/23/18 [address] [place] [address] Brandee Cotter (Manager Change) Consulting Endocrinology 11/09/19 [address] [place] [address] [employer] Consulting Pulmonary Disease 11/12/19 [address] [place] [address] Robert Sanchez [facility] Pharmacist Pharmacy 09/06/21 [address] [place] [address] [employer] 12/17/17 [facility] 07/23/18 [facility] 06/20/20 Salesperson Household Appliances Relationship Specialty Start Date End Date Panfilo Oreilly MD PCP - General Family Medicine 02/12/17 [address] [place] [address] Shreya Mccray MD Endocrinology 07/23/18 [address] [place] [address] [employer] Specialty Senior Engineering Associate Pulmonary Disease 12/23/18 [address] [place] [address] Brandee Cotter (Manager Change) Consulting Endocrinology 11/09/19 [address] [place] [address] [employer] Consulting Pulmonary Disease 11/12/19 [address] [place] [address] Robert Sanchez [facility] Pharmacist Pharmacy 09/06/21 [address] [place] [address] [employer] 12/17/17 [facility] 07/23/18 [facility] 06/20/20 Salesperson Household Appliances Relationship Specialty Start Date End Date Panfilo Oreilly MD PCP - General Family Medicine 02/12/17 [address] [place] [address] Shreya Mccray MD Endocrinology 07/23/18 [address] [place] [address] [employer] Specialty Senior Engineering Associate Pulmonary Disease 12/23/18 [address] [place] [address] Brandee Cotter (Manager Change) Consulting Endocrinology 11/09/19 [address] [place], [place] [id number] [employer] Consulting Pulmonary Disease 11/12/19 [address] [place] [address] Robert Sanchez [facility] Pharmacist Pharmacy 09/06/21 [address] [place] [address] [employer] 12/17/17 [facility] 07/23/18 [facility] 06/20/20 Salesperson Household Appliances Relationship Specialty Start Date End Date Panfilo Oreilly MD PCP - General Family Medicine 02/12/17 [address] [place] [address] Shreya Mccray MD Endocrinology 07/23/18 [address] [facility] [place] [place] [address] [employer] Specialty Senior Engineering Associate Pulmonary Disease 12/23/18 [address] [place] [address] Brandee Cotter (Manager Change) Consulting Endocrinology 11/09/19 [address] [place] [address] [employer] Consulting Pulmonary Disease 11/12/19 [address] [place] [address] Robert Sanchez [facility] Pharmacist Pharmacy 09/06/21 [address] [place] [address] [employer] 12/17/17 [facility] 07/23/18 [facility] 06/20/20 Salesperson Household Appliances Relationship Specialty Start Date End Date Panfilo Oreilly MD PCP - General Family Medicine 02/12/17 [address] [place] [address] Shreya Mccray MD Endocrinology 07/23/18 [address] [place] [address] [employer] Specialty Senior Engineering Associate Pulmonary Disease 12/23/18 [address] [place] [address] Brandee Cotter (Manager Change) Consulting Endocrinology 11/09/19 [address] [place] [address] [employer] Consulting Pulmonary Disease 11/12/19 [address] [place] [address] Robert Sanchez [facility] Pharmacist Pharmacy 09/06/21 [address] [place] [address] [employer] 12/17/17 [facility] 07/23/18 [facility] 06/20/20 Salesperson Household Appliances Relationship Specialty Start Date End Date Panfilo Oreilly MD PCP - General Family Medicine 02/12/17 [address] [place] [address] Shreya Mccray MD Endocrinology 07/23/18 [address] [place] [address] [employer] Specialty Senior Engineering Associate Pulmonary Disease 12/23/18 [address] [place] [address] Brandee Cotter (Manager Change) Consulting Endocrinology 11/09/19 [address] [place] [address] [employer] Consulting Pulmonary Disease 11/12/19 [address] [place] [address] Robert Sanchez [facility] Pharmacist Pharmacy 09/06/21 [address] [place] [address] [employer] 12/17/17 [facility] 07/23/18 [facility] 06/20/20 Salesperson Household Appliances Relationship Specialty Start Date End Date Panfilo Oreilly MD PCP - General Family Medicine 02/12/17 [address] [facility] [place] [place] [address] Shreya Mccray MD Endocrinology 07/23/18 [address] [facility] [place] [address] [place] Dumont Specialty Senior Engineering Associate Pulmonary Disease 12/23/18 [address] [place] [address] Brandee Cotter (Manager Change) Consulting Endocrinology 11/09/19 [address], [place] [id number] [place] Dumont Consulting Pulmonary Disease 11/12/19 [address] [place] [address] Robert Sanchez, [facility] Pharmacist Pharmacy 09/06/21 [address] [facility] [place] [place] [address] [employer] 12/17/17 [facility] 07/23/18 [facility] 06/20/20 Salesperson Household Appliances Relationship Specialty Start Date End Date Panfilo Oreilly MD PCP - General Family Medicine 02/12/17 [address] [facility] [place] [address] Shreya Mccray MD Endocrinology 07/23/18 [address] [facility] [place] [address] [place] Dumont Specialty Senior Engineering Associate Pulmonary Disease 12/23/18 [address] [place] [address] Brandee Cotter (Manager Change) Consulting Endocrinology 11/09/19 [address], [place] [id number] [place] Dumont Consulting Pulmonary Disease 11/12/19 [address] [place] [address] Robert Sanchez [facility] Pharmacist Pharmacy 09/06/21 1740 [place] [address] [employer] 12/17/17 [facility] 07/23/18 [facility] 06/20/20 Salesperson Household Appliances Relationship Specialty Start Date End Date Panfilo Oreilly, PCP - General Family Medicine 02/12/17 [address] [place] [address] Shreya Mccray, Endocrinology 07/23/18 [address] [place] [address] [place] Dumont Specialty Senior Engineering Associate Pulmonary Disease 12/23/18 [address] [place] [address] Brandee Cotter Consulting Endocrinology 11/09/19 (Manager Change) [address] [place] [address] [place] Dumont Consulting Pulmonary Disease 11/12/19 [address] [place] [address] Robert Sanchez [facility] Pharmacist Pharmacy 09/06/21 [address] [place] [address] Brissa Kilpatrick, Transitional Care Pharmacy 01/02/23 [facility] Pharmacist [address] [place] [address] Mimi Crowley, cell tender helper 01/01/23 01/29/23 Life Cycle Assessment Analyst [employer] 12/17/17 [facility] 07/23/18 [facility] 06/20/20 Salesperson Household Appliances Relationship Specialty Start Date End Date Panfilo Oreilly, PCP - General Family Medicine 02/12/17 1740 [place], [place] 846571 Shreya Mccray, Endocrinology 07/23/18 1740 [place], [place] 622211 [place] Dumont Specialty Senior Engineering Associate Pulmonary Disease 12/23/18 [address] [place] [address] Brandee Cotter Consulting Endocrinology 11/09/19 (Manager Change) [address] [place] [address] [place] Dumont Consulting Pulmonary Disease 11/12/19 [address] [place] [address] Robert Sanchez, [facility] Pharmacist Pharmacy 09/06/21 [address] [place] [address] Brissa Kilpatrick, Transitional Care Pharmacy 01/02/23 [facility] Pharmacist [address] [place] [address] Mimi Crowley, cell tender helper 01/01/23 01/29/23 Life Cycle Assessment Analyst [employer] 12/17/17 [facility] 07/23/18 [facility] 06/20/20 Salesperson Household Appliances Relationship Specialty Start Date End Date Panfilo Oreilly, PCP - General Family Medicine 02/12/17 [address] [place], [place] 682351 Shreya Mccray, Endocrinology 07/23/18 [address] [place], [place] [id number] [place] Dumont Specialty Senior Engineering Associate Pulmonary Disease 12/23/18 [address] [place] [address] Brandee Cotter Consulting Endocrinology 11/09/19 (Manager Change) [address], [place] [id number] Berlin Dumont Consulting Pulmonary Disease 11/12/19 [address] [place] [address] Robert Sanchez, [facility] Pharmacist Pharmacy 09/06/21 [address] [place] [address] Brissa Kilpatrick, Transitional Care Pharmacy 01/02/23 [facility] Pharmacist [address] [place] [address] Mimi Crowley, cell tender helper 01/01/23 01/29/23 Life Cycle Assessment Analyst [employer] 12/17/17 [facility] 07/23/18 [facility] 06/20/20 Salesperson Household Appliances Relationship Specialty Start Date End Date Panfilo Oreilly, PCP - General Family Medicine 02/12/17 [address] [place], [place] 924671 Shreya Mccray, Endocrinology 07/23/18 17[address] [place], [place] 563461 [place] Dumont Specialty Senior Engineering Associate Pulmonary Disease 12/23/18 [address] [place] [address] Brandee Cotter Consulting Endocrinology 11/09/19 (Manager Change) [address], [place] [id number] Berlin Dumont Consulting Pulmonary Disease 11/12/19 [address] [place] [address] Robert Sanchez, [facility] Pharmacist Pharmacy 09/06/21 [address] [place] [address] Brissa Kilpatrick, Transitional Care Pharmacy 01/02/23 [facility] Pharmacist [address] [place] [address] Mimi Crowley, cell tender helper 01/01/23 01/29/23 Life Cycle Assessment Analyst [employer] 12/17/17 [facility] 07/23/18 [facility] 06/20/20 Salesperson Household Appliances Relationship Specialty Start Date End Date Panfilo Oreilly, PCP - General Family Medicine 02/12/17 174 [place], [place] [id number] Shreya Mccray, Endocrinology 07/23/18 [address] [place], [place] [id number] [place] Dumont Specialty Senior Engineering Associate Pulmonary Disease 12/23/18 [address] [place] [address] Brandee Cotter Consulting Endocrinology 11/09/19 (Manager Change) [address] [place] [address] [place] Dumont Consulting Pulmonary Disease 11/12/19 [address] [place] [address] Robert Sanchez, [facility] Pharmacist Pharmacy 09/06/21 [address] [place] [address] Brissa Kilpatrick, Transitional Care Pharmacy 01/02/23 [facility] Pharmacist [address] [place] [address] Mimi Crowley, cell tender helper 01/01/23 01/29/23 Life Cycle Assessment Analyst [employer] 12/17/17 [facility] 07/23/18 [facility] 06/20/20 Salesperson Household Appliances Relationship Specialty Start Date End Date Panfilo Oreilly, PCP - General Family Medicine 02/12/17 [address] [place], [place] [id number] Shreya Mccray, Endocrinology 07/23/18 [address] [place], [place] [id number] [place] Dumont Specialty Senior Engineering Associate Pulmonary Disease 12/23/18 [address] [place] [address] Brandee Cotter Consulting Endocrinology 11/09/19 (Manager Change) [address] [place] [address] [place] Dumont Consulting Pulmonary Disease 11/12/19 [address] [place] [address] Robert Sanchez, [facility] Pharmacist Pharmacy 09/06/21 [address] [place] [address] Brissa Kilpatrick, Transitional Care Pharmacy 01/02/23 [facility] Pharmacist [address] [place] [address] [employer] 12/17/17 [facility] 07/23/18 [facility] 06/20/20 Salesperson Household Appliances Relationship Specialty Start Date End Date Panfilo Oreilly, PCP - General Family Medicine 02/12/17 [address] [place] [address] Shreya Mccray, Endocrinology 07/23/18 [address] [address] [place] Dumont Specialty Senior Engineering Associate Pulmonary Disease 12/23/18 [address] [place] [address] Brandee Cotter Consulting Endocrinology 11/09/19 (Manager Change) [address], [place] [id number] [place] Dumont Consulting Pulmonary Disease 11/12/19 [address] [place] [address] Robert Sanchez [facility] Pharmacist Pharmacy 09/06/21 [address] [place] [address] Brissa Kilpatrick, Transitional Care Pharmacy 01/02/23 [facility] Pharmacist [address] [place], [place] [id number] [employer] 12/17/17 [facility] 07/23/18 [facility] 06/20/20 Salesperson Household Appliances Relationship Specialty Start Date End Date Panfilo Oreilly, PCP - General Family Medicine 02/12/17 [address] [place] [address] Shreya Mccray, Endocrinology 07/23/18 [address] [place] [address] [place] Dumont Specialty Senior Engineering Associate Pulmonary Disease 12/23/18 [address] [place] [address] Brandee Cotter Consulting Endocrinology 11/09/19 (Manager Change) [address] [place] [address] [place] Dumont Consulting Pulmonary Disease 11/12/19 [address] [place] [address] Robert Sanchez [facility] Pharmacist Pharmacy 09/06/21 [address] [place] [address] Brissa Kilpatrick, Transitional Care Pharmacy 01/02/23 [facility] Pharmacist [address] [place] [address] Mimi Crowley, cell tender helper 01/01/23 01/13/23 Life Cycle Assessment Analyst [employer] 12/17/17 [facility] 07/23/18 [facility] 06/20/20 Salesperson Household Appliances Relationship Specialty Start Date End Date Panfilo Oreilly, PCP - General Family Medicine 02/12/17 [address] [place], [place] [id number] Shreya Mccray, Endocrinology 07/23/18 [address] [place] [address] [place] Dumont Specialty Senior Engineering Associate Pulmonary Disease 12/23/18 [address] [place] [address] Brandee Cotter Consulting Endocrinology 11/09/19 (Manager Change) [address] [place] [address] [place] Dumont Consulting Pulmonary Disease 11/12/19 [address] [place] [address] Robert Sanchez, [facility] Pharmacist Pharmacy 09/06/21 [address] [place] [address] Brissa Kilpatrick, Transitional Care Pharmacy 01/02/23 [facility] Pharmacist [address] [place] [address] Raquel Payne, cell tender helper 01/17/23 Life Cycle Assessment Analyst [employer] 12/17/17 [facility] 07/23/18 [facility] 06/20/20 Salesperson Household Appliances Relationship Specialty Start Date End Date Panfilo Oreilly, PCP - General Family Medicine 02/12/17 [address] [place], [place] 202741 Shreya Mccray, Endocrinology 07/23/18 [address] [place], [place] 491201 [place] Dumont Specialty Senior Engineering Associate Pulmonary Disease 12/23/18 [address] [place] [address] Brandee Cotter Consulting Endocrinology 11/09/19 (Manager Change) [address] [place] [address] [place] Dumont Consulting Pulmonary Disease 11/12/19 [address] [place] [address] Robert Sanchez, [facility] Pharmacist Pharmacy 09/06/21 [address] [place] [address] Brissa Kilpatrick, Transitional Care Pharmacy 01/02/23 [facility] Pharmacist [address] [place] [address] Raqeul Payne RN Primary Care 01/17/23 Life Cycle Assessment Analyst [employer] 12/17/17 [facility] 07/23/18 [facility] 06/20/20 Salesperson Household Appliances Relationship Specialty Start Date End Date Panfilo Oreilly, PCP - General Family Medicine 02/12/17 [address] [place], [place] 102981 Shreya Mccray, Endocrinology 07/23/18 17[address] [place], [place] 154461 [place] Dumont Specialty Senior Engineering Associate Pulmonary Disease 12/23/18 [address] [place] [address] Brandee Cotter Consulting Endocrinology 11/09/19 (Manager Change) [address], [place] [id number] [place] Dumont Consulting Pulmonary Disease 11/12/19 [address] [place] [address] Robert Sanchez, [facility] Pharmacist Pharmacy 09/06/21 [address] [place] [address] Brissa Kilpatrick, Transitional Care Pharmacy 01/02/23 [facility] Pharmacist [address] [place] [address] Raquel Payne, cell tender helper 01/17/23 Life Cycle Assessment Analyst [employer] 12/17/17 [facility] 07/23/18 [facility] 06/20/20 Salesperson Household Appliances Relationship Specialty Start Date End Date Panfilo Oreilly, PCP - General Family Medicine 02/12/17 [address] [place], [place] [id number] Shreya Mccray, Endocrinology 07/23/18 [address] [place], [place] [id number] [place] Dumont Specialty Senior Engineering Associate Pulmonary Disease 12/23/18 [address] [place] [address] Brandee Cotter Consulting Endocrinology 11/09/19 (Manager Change) [address] [place] [address] [place] Dumont Consulting Pulmonary Disease 11/12/19 [address] [place] [place] [address] Robert Sanchez, [facility] Pharmacist Pharmacy 09/06/21 [address] [place] [address] Brissa Kilpatrick, Transitional Care Pharmacy 01/02/23 [facility] Pharmacist [address] [place] [address] Raquel Payne, cell tender helper 01/17/23 Life Cycle Assessment Analyst [employer] 12/17/17 [facility] 07/23/18 [facility] 06/20/20 Salesperson Household Appliances Relationship Specialty Start Date End Date Panfilo Oreilly, PCP - General Family Medicine 02/12/17 [address] [place], [place] [id number] Shreya Mccray, Endocrinology 07/23/18 [address] [place], [place] [id number] [place] Dumont Specialty Senior Engineering Associate Pulmonary Disease 12/23/18 [address] [place] [address] Brandee Cotter Consulting Endocrinology 11/09/19 (Manager Change) [address], [place] [id number] [place] Duomnt Consulting Pulmonary Disease 11/12/19 [address] [place] [address] Robert Sanchez, [facility] Pharmacist Pharmacy 09/06/21 [address] [place] [address] Brissa Kilpatrick, Transitional Care Pharmacy 01/02/23 [facility] Pharmacist [address] [place], [place] 7839295 Raquel Payne, cell tender helper 01/17/23 Life Cycle Assessment Analyst [employer] 12/17/17 [facility] 07/23/18 [facility] 06/20/20 Salesperson Household Appliances Relationship Specialty Start Date End Date Panfilo Oreilly, PCP - General Family Medicine 02/12/17 [address] [place] [address] Shreya Mccray, Endocrinology 07/23/18 [address] [place] [address] [place] Dumont Specialty Senior Engineering Associate Pulmonary Disease 12/23/18 [address] [place] [address] Brandee Cotter Consulting Endocrinology 11/09/19 (Manager Change) [address], [place] [address] [place] Dumont Consulting Pulmonary Disease 11/12/19 [address] [place] [address] Robert Sanchez [facility] Pharmacist Pharmacy 09/06/21 [address] [place] [address] Raquel Payne, cell tender helper 01/17/23 Life Cycle Assessment Analyst [employer] 12/17/17 [facility] 07/23/18 [facility] 06/20/20 Salesperson Household Appliances Relationship Specialty Start Date End Date Panfilo Oreilly, PCP - General Family Medicine 02/12/17 [address] [place] [address] Shreya Mccray, Endocrinology 07/23/18 [address] [place] [address] [place] Dumont Specialty Senior Engineering Associate Pulmonary Disease 12/23/18 [address] [place] [address] Brandee Cotter Consulting Endocrinology 11/09/19 (Manager Change) [address], [place] [id number] [place] Dumont Consulting Pulmonary Disease 11/12/19 [address] [place] [address] Robert Sanchez [facility] Pharmacist Pharmacy 09/06/21 [address] [place] [address] Raquel Payne RN Primary Care 01/17/23 Life Cycle Assessment Analyst [employer] 12/17/17 [facility] 07/23/18 [facility] 06/20/20 Salesperson Household Appliances Relationship Specialty Start Date End Date Panfilo Oreilly, PCP - General Family Medicine 02/12/17 MD [address] [place], [place] 790961 Shreya Mccray, Endocrinology 07/23/18 17[address] [place], [place] 214471 [place] Dumont Specialty Senior Engineering Associate Pulmonary Disease 12/23/18 [address] [place] [address] Brandee Cotter Consulting Endocrinology 11/09/19 (Manager Change) [facility] [address], [place] [id number] Berlin Dumont Consulting Pulmonary Disease 11/12/19 [address] [place] [address] [facility] 09/06/21 [address] [place] [address] Raquel Payne RN Primary Care 01/17/23 Life Cycle Assessment Analyst Dianne Garcia, [facility] General Surgery 02/20/23 CLUBHOUSE MANAGER.ANESTHESIOLOGY RESIDENT [address] [facility] [place] [address] [employer] 12/17/17 [facility] 07/23/18 [facility] 06/20/20 Salesperson Household Appliances Relationship Specialty Start Date End Date Panfilo rOeilly, PCP - General Family Medicine 02/12/17 [address] [place], [place] 821431 Shreya Mccray, Endocrinology 07/23/18 [address] [place] [address] [place] Dumont Specialty Senior Engineering Associate Pulmonary Disease 12/23/18 [address] [place] [address] Brandee Cotter Consulting Endocrinology 11/09/19 (Manager Change) [address], [place] [id number] [place] Dumont Consulting Pulmonary Disease 11/12/19 [address] [place] [address] Robert Sanchez, [facility] Pharmacist Pharmacy 09/06/21 [address] [place] [address] Dianne Garcia, [facility] General Surgery 02/20/23 CLUBHOUSE MANAGER.ANESTHESIOLOGY RESIDENT 1 [place] [address] Annie Borges, [facility] Transitional Care Pharmacy 02/21/23 03/22/23 [facility] [facility] [place] [address] Carlos Cline, cell tender helper Internal Medicine 02/21/23 03/23/[address] [place] [address] Mercury Recoverer Panfilo Oreilly, Home Care Provider Family Medicine 02/21/23 17[address] [place], [place] 252331 [employer] 12/17/17 [facility] 07/23/18 [facility] 06/20/20 Salesperson Household Appliances Relationship Specialty Start Date End Date Panfilo Oreilly MD PCP - General Family Medicine 02/12/17 [address] [place] [address] Shreya Mccray MD Endocrinology 07/23/18 [address] [place] [address] [place] Dumont Specialty Senior Engineering Associate Pulmonary Disease 12/23/18 [address] [place] [address] Brandee Cotter (Manager Change) Consulting Endocrinology 11/09/19 [address], [place] [id number] [place] Dumont Consulting Pulmonary Disease 11/12/19 [address] [place] [address] Robert Sanchez [facility] Pharmacist Pharmacy 09/06/21 [address] [place] [address] [employer] 12/17/17 [facility] 07/23/18 [facility] 06/20/20 Salesperson Household Appliances Relationship Specialty Start Date End Date Panfilo Oreilly, PCP - General Family Medicine 02/12/17 [address] [place] [address] Shreya Mccray, Endocrinology 07/23/18 [address] [place] [address] [place] Dumont Specialty Senior Engineering Associate Pulmonary Disease 12/23/18 [address] [place], [place] 108491 Brandee Cotter Consulting Endocrinology 11/09/19 (Manager Change) [address], [place] [id number] [place] Dumont Consulting Pulmonary Disease 11/12/19 [address] [place] [address] Robert Sanchez [facility] Pharmacist Pharmacy 09/06/21 [address] [place], [place] [id number] Dianne Garcia, [facility] General Surgery 02/20/23 CLUBHOUSE MANAGER.ANESTHESIOLOGY RESIDENT 1 [place] [address] Annie Borges [facility] Transitional Care Pharmacy 02/21/23 03/22/23 [address] [facility] [place] [address] Carlos Cline, cell tender helper Internal Medicine 02/21/23 03/23/23 [address] [facility] [place] [address] Mercury Recoverer Panfilo Oreilly, Home Care Provider Family Medicine 02/21/23 [address] [place], [place] [id number] Bharat Gardner, liquid chlorine operatorStock Associate Post Acute Care 02/21/23 [address] [place] [address] [employer] 12/17/17 [facility] 07/23/18 [facility] 06/20/20 Salesperson Household Appliances Relationship Specialty Start Date End Date Panfilo Oreilly, PCP - General Family Medicine 02/12/17 [address] [place], [place] 214961 Shreya Mccray, Endocrinology 07/23/18 [address] [place] [address] [place] Dumont Specialty Senior Engineering Associate Pulmonary Disease 12/23/18 [address] [place] [address] Brandee Cotter Consulting Endocrinology 11/09/19 (Manager Change) [address], [place] [id number] [place] Dumont Consulting Pulmonary Disease 11/12/19 [address] [place] [address] Robert Sanchez, [facility] Pharmacist Pharmacy 09/06/21 [address] [place] [address] Dianne Garcia, [facility] General Surgery 02/20/23 CLUBHOUSE MANAGER.ANESTHESIOLOGY RESIDENT 1 [place] [address] Annie Borges, [facility] Transitional Care Pharmacy 02/21/23 03/22/23 [address] [facility] [place] [address] Carlos Cline, cell tender helper Internal Medicine 02/21/23 03/23/[address] [place] [address] Mercury Recoverer Panfilo Oreilly, Home Care Provider Family Medicine 02/21/23 [address] [place], [place] [id number] Bharat Gardner, liquid chlorine operatorStock Associate Post Acute Care 02/21/23 [address] [place], [place] 4275231 [employer] 12/17/17 [facility] 07/23/18 [facility] 06/20/20 Salesperson Household Appliances Relationship Specialty Start Date End Date Panfilo Oreilly, PCP - General Family Medicine 02/12/17 [address] [place], [place] [id number] Shreya Mccray, Endocrinology 07/23/18 [address] [place], [place] [id number] [place] Dumont Specialty Senior Engineering Associate Pulmonary Disease 12/23/18 [address] [place] [address] Brandee Cotter Consulting Endocrinology 11/09/19 (Manager Change) [address], [place] [id number] [place] Dumont Consulting Pulmonary Disease 11/12/19 [address] [place] [address] Robert Sanchez, [facility] Pharmacist Pharmacy 09/06/21 [address] [place] [address] Dianne Garcia, [facility] General Surgery 02/20/23 CLUBHOUSE MANAGER.ANESTHESIOLOGY RESIDENT [address] [place] [address] Annie Borges, [facility] Transitional Care Pharmacy 02/21/23 03/22/23 [address] Pharmacist [place], [place] [id number] Carlos Cline, cell tender helper Internal Medicine 02/21/23 03/23/[address] [place] [address] Mercury Recoverer Panfilo Oreilly, Home Care Provider Family Medicine 02/21/23 [address] [place] [address] Bharat Gardner, liquid chlorine operatorStock Associate Post Acute Care 02/21/23 [address] [place] [address] [employer] 12/17/17 [facility] 07/23/18 [facility] 06/20/20 Salesperson Household Appliances Relationship Specialty Start Date End Date Panfilo Oreilly, PCP - General Family Medicine 02/12/17 174 [place], [place] [id number] Shreya Mccray, Endocrinology 07/23/18 [address] [place] [address] eBrlin Dumont Specialty Senior Engineering Associate Pulmonary Disease 12/23/18 [address] [place] [address] Brandee Cotter Consulting Endocrinology 11/09/19 (Manager Change) [address] [place] [address] [place] Dumont Consulting Pulmonary Disease 11/12/19 [address] [place] [address] Robert Sanchez, [facility] Pharmacist Pharmacy 09/06/21 [address] [place] [address] Dianne Garcia, [facility] General Surgery 02/20/23 CLUBHOUSE MANAGER.ANESTHESIOLOGY RESIDENT [address] [place] [address] Annie Borges [facility] Transitional Care Pharmacy 02/21/23 03/22/23 [address] [facility] [place] [address] Carlos Cline, cell tender helper Internal Medicine 02/21/23 03/23/23 [address] [place] [place] [address] Mercury Recoverer Panfilo Oreilly, Home Care Provider Family Medicine 02/21/23 [address] [place], [place] [id number] Bharat Gardner, liquid chlorine operatorStock Associate Post Acute Care 02/21/23 [address] [place], [place] [id number] [employer] 12/17/17 [facility] 07/23/18 [facility] 06/20/20 Salesperson Household Appliances Relationship Specialty Start Date End Date Panfilo Oreilly, PCP - General Family Medicine 02/12/17 [address] [place], [place] [id number] Shreya Mccray, Endocrinology 07/23/18 [address] [place] [address] [place] Dumont Specialty Senior Engineering Associate Pulmonary Disease 12/23/18 [address] [place] [address] Brandee Cotter Consulting Endocrinology 11/09/19 (Manager Change) [address], [place] [id number] [place] Dumont Consulting Pulmonary Disease 11/12/19 [address] [place] [address] Robert Sanchez, [facility] Pharmacist Pharmacy 09/06/21 [address] [place] [address] Dianne Garcia, [facility] General Surgery 02/20/23 CLUBHOUSE MANAGER.ANESTHESIOLOGY RESIDENT [address] [place] [place] General sigifredo [place], [place] [id number] Annie Borges, [facility] Pharm[facility] 02/21/23 03/22/23 [address] [facility] [place] [address] Carlos Cline, cell tender helper Internal Medicine 02/21/23 03/23/23 [address] [place] [address] Mercury Recoverer Panfilo Oreilly, Home Care Provider Family Medicine 02/21/23 [address] [place], [place] [id number] Bharat Gardner, liquid chlorine operatorStock Associate Post Acute Care 02/21/23 [address] [place], [place] [id number] [employer] 12/17/17 [facility] 07/23/18 [facility] 06/20/20 Salesperson Household Appliances Relationship Specialty Start Date End Date Panfilo Oreilly, PCP - General Family Medicine 02/12/17 [address] [place], [place] [id number] Shreya Mccray, Endocrinology 07/23/18 [address] [place], [place] [id number] [place] Dumont Specialty Senior Engineering Associate Pulmonary Disease 12/23/18 [address] [place] [address] Brandee Cotter Consulting Endocrinology 11/09/19 (Manager Change) [address] [place] [address] Berlin Dumont Consulting Pulmonary Disease 11/12/19 [address] [place] [address] Robert Sanchez, [facility] Pharmacist Pharmacy 09/06/21 [address] [place], [place] [phone] Dianne Garcia, [facility] General Surgery 02/20/23 CLUBHOUSE MANAGER.ANESTHESIOLOGY RESIDENT [address] [place] [place] [address] Annie Borges, [facility] 02/21/23 03/22/23 [address] [facility] [place] [address] Carlos Cline, cell tender helper Internal Medicine 02/21/23 03/23/23 [address] [place] [address] Mercury Recoverer Panfilo Oreilly, Home Care Provider Family Medicine 02/21/23 MD [address] [place], [place] [id number] Bharat Gardner, liquid chlorine operatorStock Associate Post Acute Care 02/21/23 [address] [place] [address] [employer] 12/17/17 [facility] 07/23/18 [facility] 06/20/20 Salesperson Household Appliances Relationship Specialty Start Date End Date Panfilo Orelily, PCP - General Family Medicine 02/12/17 [address] [place] [address] Shreya Mccray, Endocrinology 07/23/18 [address] [place] [address] Berlin Dumont Specialty Senior Engineering Associate Pulmonary Disease 12/23/18 [address] [place] [address] Brandee Cotter Consulting Endocrinology 11/09/19 (Manager Change) [address] [place], [place] [phone] Berlin Dumont Consulting Pulmonary Disease 11/12/19 [address] [place] [address] Robert Sanchez, [facility] Pharmacist Pharmacy 09/06/21 [address] [place] [address] Dianne Garcia, [facility] General Surgery 02/20/23 CLUBHOUSE MANAGER.ANESTHESIOLOGY RESIDENT 1 [place] [address] Annie Borges, [facility] 02/21/23 03/22/23 [address] [facility] [place] [address] Carlos Cline, cell tender helper Internal Medicine 02/21/23 03/23/23 [address] [place] [address] Mercury Recoverer Panfilo Oreilly, Home Care Provider Family Medicine 02/21/23 [address] [place], [place] [phone] Bharat Gardner, liquid chlorine operatorStock Associate Post Acute Care 02/21/23 [address] [place], [place] [phone] [employer] 12/17/17 [facility] 07/23/18 [facility] 06/20/20 Salesperson Household Appliances Relationship Specialty Start Date End Date Panfilo Oreilly, PCP - General Family Medicine 02/12/17 [address] [place], [place] [id number] Shreya Mccray, Endocrinology 07/23/18 [address] [place], [place] [phone] Berlin Dumont Specialty Senior Engineering Associate Pulmonary Disease 12/23/18 [address] [address] Brandee Cotter Consulting Endocrinology 11/09/19 (Manager Change) [address] [place], [place] [phone] Berlin Dumont Consulting Pulmonary Disease 11/12/19 [address] [facility] [place] [address] Robert Sanchez, [facility] Pharmacist Pharmacy 09/06/21 [address] [place] [address] Dianne Garcia, [facility] General Surgery 02/20/23 CLUBHOUSE MANAGER.ANESTHESIOLOGY RESIDENT [address] [place] [address] Annie Borges, [facility] Pharm[facility] 02/21/23 03/22/23 [address]y Pharmacist [place], [place] [phone] Toccaceli, Denille, cell tender helper Internal Medicine 02/21/23 03/23/23 [address] [place] [address] Mercury Recoverer Panfilo Oreilly, Home Care Provider Family Medicine 02/21/23 [address] [place] [address] Bharat Gardner, liquid chlorine operatorStock Associate Post Acute Care 02/21/23 [address] [place] [address] [employer] 12/17/17 [facility] 07/23/18 [facility] 06/20/20 INFORMATION SOURCE (unrecognized section and content) DATE CREATED AUTHOR AUTHOR'S ORGANIZ ATION 12/11/2022 [facility] DATE CREATED AUTHOR AUTHOR'S ORGANIZATIO N 02/21/2023 [facility] DATE CREATED AUTHOR AUTHOR'S ORGANIZATIO N 02/28/2023 [facility] FOR RECORDS PERTAINING TO PATIENTS WHO [...] BE BASED ON THE PRIMARY CLINICAL RECORDS. [facility] [employer] provides no warranty or guarantee of the accuracy or completeness of information in this document.
[2023-03-02 17:30] LABS: Allen Test Positive; Base Excess 7 mmol/L (-2 to +2); Blood Gas Specimen Type ART; FI02 50; Mode BiLevel; O2 Delivery Device BiPAP; PO2 60 mmHG (75-100); RR 10; SITE R Radial; SO2 86 % (95-99); Total Carbon Dioxide 36 mmol/L; pCO2 72.7 mmHg (35-45); pH 7.28 (7.35-7.45)
--- NOTE | 2023-03-02 18:07 | PCM.HOSP.N ---
Hospitalist Note ABG 7.28, pCO2 72.7 pO2 60. Consistent with chronic respiratory acidosis. Patient more alert and interactive. Patient able to tell me that she has been more short of breath particular with exertion over the past couple days. Patient states that she is breathing better. Pulse ox is around 90% on 50% FiO2 through the BiPAP. Patient overall appears better though her blood gas is not significant improvement over the venous blood gas. I think at this time, we can avoid intubation and continue with the current medical treatment. Discussed with patient's RN.
[2023-03-02] MEDS: Insulin Lispro 100 UNIT/ML INSULN.PEN SC (18:15)
[2023-03-02 18:26] LABS: Reflex Lactate? Y
[2023-03-02 18:31] LABS: Troponin-I HS 29 pg/mL (3.0-54.0)
[2023-03-02 18:35] LABS: Bedside Glucose 293 mg/dL (74-106)
[2023-03-02] MEDS: Furosemide 40 MG/4 ML Vial IV (18:45)
[2023-03-02 18:47] LABS: Bacteria 0 SEEN /hpf (None Seen); Mucous, Urine 0 SEEN /hpf (<or=2+); Red Blood Cells-Urine 0 SEEN /hpf (0-5); Squamous Epithelial Cells - UA 0 SEEN /hpf (5-10); White Blood Cells 0 SEEN /hpf (0-5)
[2023-03-02 18:54] LABS: Color, Urine Yellow (Yellow); Glucose, Dipstick 1000 mg/dl (Normal); Ketone-Dipstick Negative (Negative); Leukocyte Esterase-Dipstick Negative /ul (Negative); Nitrite-Dipstick Negative (Negative); Occult Blood-Urine 10 /ul (Negative); Protein-Dipstick 30 mg/dl (Negative); Specific Gravity, Urine 1.015 (1.002-1.030); Urine Bilirubin Dipstick Negative (Negative); Urine Clarity Clear (Clear); Urine Urobilinogen Normal (Normal)
--- NOTE | 2023-03-02 18:57 | PCM.RX.CS ---
Consult Pharmacy has been consulted to manage selected antiobiotic: Vancomycin Type of Consult: New start Suspected Infection: Pneumonia Labs: Sodium 136 mmol/L (136-145) 03/02/23 14:20 Potassium 4.4 mmol/L (3.5-5.1) 03/02/23 14:20 Chloride 102 mmol/L (98-107) 03/02/23 14:20 Carbon Dioxide 30.0 mmol/L (21.0-32.0) 03/02/23 14:20 Anion Gap 4 (5-15) L 03/02/23 14:20 BUN 12 mg/dL (7-18) 03/02/23 14:20 Creatinine 0.88 mg/dL (0.55-1.02) 03/02/23 14:20 Est GFR (MDRD) Af Amer 89 mL/min (>60) 03/02/23 14:20 Est GFR (MDRD) Non-Af 73 mL/min (>60) 03/02/23 14:20 BUN/Creatinine Ratio 13.6 RATIO (10-20) 03/02/23 14:20 Glucose 261 mg/dL (74-106) H 03/02/23 14:20 Goal Trough: 15-20 mcg/mL Pharmacy Plan for Drug Dosing: NEW START IV VANCOMYCIN Consulting Physician: ARIELLE Indication: PNEUMONIA Goal Trough: 15-20 MG/DL SrCr: 0.88 MG/DL CrCl: 131 ML/MIN USING ADJ BW OF 103 KG Comments: LOADING DOSE OF 2000MG GIVEN 03/02/23 @ 1845 Vancomycin Dose: WILL START 1500MG Q8 @ 0300 (03/03) AND GET A LEVEL PRIOR TO 4TH DOSE. Pending Level: 03/03/23 @ 1830 Pharmacy Service will continue to monitor and adjust dosing as required.
[2023-03-02 19:26] LABS: Lactic Acid 0.9 mmol/L (0.4-1.9)
--- NOTE | 2023-03-02 19:34 | EX.PCM.CONCC ---
Assessment & Plan Assessment/Plan (1) Acute on chronic respiratory failure with hypoxia and hypercapnia: PLAN: - Noninvasive ventilation at settings of IPAP 17 EPAP 8 rate 22 FiO2 30% titrate to saturation of greater than 94% to maintain PaO2 greater than 55. - Agree with diuresis, empiric antibiotics - Restrict calories to 1200 fawn/day, diabetic diet - Monitor renal function and electrolytes - Bronchodilators as needed - Dietary consultation, lifestyle management - Consider bariatric surgery - Evaluation of the right heart would be reasonable, although it would likely take a ZANDRA to do that considering her obesity and the poor likelihood of obtaining a good study with a transthoracic probe. (2) Community acquired pneumonia: PLAN: White count is elevated, patient has bilateral infiltrates with normal BNP therefore she may in fact have pneumonia - Await respiratory viral swabs, add Tamiflu if positive for influenza and/or Paxlovid and/or remdesivir as needed and steroids if she is positive for COVID. - Up-to-date immunizations - Incentive spirometry - Out of bed to chair, mobilize to prevent and treat atelectasis, encourage cough deep breathing every 2 hours with routine bronchopulmonary hygiene - Physical therapy - Strep and Legionella urine, complete respiratory PCR to include chlamydia mycoplasma and other atypicals, treat as appropriate - Add empiric azithromycin 500 mg today and 250 daily for 4 days for empiric therapy of atypical community-acquired pneumonia (3) Congestive heart failure: PLAN: BNP is currently normal - Check troponins (4) Acute encephalopathy: PLAN: Likely combination of severe chronic sleep deprivation in a woman with LOGAN/obesity hypoventilation noncompliant with CPAP. She is now ventilating effectively with a exhale minute ventilation of 11.7 L/min acceptable leak on BiPAP, and fell sound asleep. - Await second ABG on effective BiPAP - Check ammonia level in the event of passive hepatic congestion causing metabolic abnormality - Follow blood sugars - Check TSH (5) 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: PLAN: As above -Nightly compliance of at least 4 hours per night - 4 hours per night, preferably all night every night and whenever the patient naps. -Further discussions regarding barriers to care when she is awake and conversant (6) Noncompliance with CPAP treatment: PLAN: As above (7) BMI 60.0-69.9, adult: PLAN: As above (8) Venous stasis dermatitis of both lower extremities: PLAN: Management per primary. - Consider evaluation for DVT/PE, although the chest x-ray is much more consistent with CHF and/or viral pneumonia or atypical pneumonia PLAN: Plan Thank you for consulting [facility]. Shad Sanders DO will follow up with her tomorrow for our team. HPI Consult Data Date of Consult: 03/02/23 HPI Narrative Reason for Consultation: Ac/Chr resp failure with hypox/hypercarbia and BMI 63 HPI Narrative: MACARIO OVERTON, is a 47 F who presentsWith acute on chronic respiratory failure with hypoxia and hypercarbia. Her initial blood gas was consistent with a triple acid-base disorder which included severe respiratory acidosis, metabolic acidosis acute metabolic alkalosis. She has severe obstructive sleep apnea/obesity hypoventilation syndrome on home BiPAP with which she is noncompliant. Her history is per the chart, she was sleeping in poorly arousable when I first encountered her but earlier was awake and alert, she is tolerating BiPAP well with a minute ventilation of 11.7 settings of IPAP 17 EPAP of 8 rate 17 which I increased to 22 FiO2 of 50% with saturation 95%. So from a respiratory viewpoint she is stable on the ventilator and just sleeping soundly. Her second ABG will be done shortly. Her chest x-ray shows bilateral pulmonary infiltrates and small effusions, notably her chest CT scan in 2019 showed diffuse bilateral groundglass infiltrates, raising the possibility that these changes are chronic hypoventilatory changes. [facility] Medical History (Updated 03/02/23 @ 19:[address] Fadi Box MD) Abscess Abscess of vulva Acute on chronic respiratory failure with hypoxia and hypercapnia KERRY (acute kidney injury) Anxiety BiPAP (biphasic positive airway pressure) dependence BMI 60.0-69.9, adult Chronic diastolic (congestive) heart failure Chronic respiratory failure with hypoxia Contusion of knee, right COPD (chronic obstructive pulmonary disease) Depression Diabetes Dyspnea on exertion Essential hypertension GERD (gastroesophageal reflux disease) Hidradenitis History of left heart catheterization (LHC) (~01/05/19) History of MRSA infection Hyperglycemia due to type 2 diabetes mellitus Hyperlipidemia Hypertension Morbid obesity Necrotizing soft tissue infection Non-healing open wound of left groin Noncompliance with CPAP treatment NSTEMI (non-ST elevated myocardial infarction) 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 Old myocardial infarction On home oxygen therapy Open wound of vulva with complication Opiate overdose Perianal abscess Pulmonary embolism Respiratory failure with hypoxia Restrictive lung disease secondary to obesity Sleep apnea Smoker Soft tissue abscess of inguinal region Tobacco abuse Type 2 diabetes mellitus Venous stasis dermatitis of both lower extremities Home Medications multivit-iron 18 mg-folic acid 400 mcg-calcium 500 mg-minerals tablet 1 ea PO DAILY supplement 03/26/17 [History Last Taken 12/09/22] omeprazole 40 mg capsule,delayed release 40 mg PO DAILY GERD 12/15/18 [History Last Taken 12/09/22] loratadine 10 mg tablet 10 mg PO DAILY PRN Allergies 03/01/20 [History Last Taken 12/09/22] apixaban 5 mg tablet 5 mg PO BID blood thinner 08/20/20 [History Last Taken 12/09/22] diltiazem HCl 120 mg capsule,extended release 24 hr 120 mg PO DAILY heart rate 08/20/20 [History Last Taken 12/09/22] lisinopril 10 mg tablet 10 mg PO DAILY blood pressure 03/26/21 [History Last Taken 12/09/22] metformin 500 mg tablet,extended release 24 hr 2,000 mg PO DAILY diabetes 03/26/21 [History Last Taken 01/15/22] metoprolol succinate 25 mg tablet,extended release 24 hr 25 mg PO DAILY blood pressure 03/26/21 [History Last Taken 12/09/22] atorvastatin 80 mg tablet 100 mg PO QHS Check with primary doctor 02/07/22 [History Last Taken 12/09/22] furosemide 40 mg tablet 40 mg PO BID diuretic 09/22/22 [History Last Taken 12/09/22] ammonium lactate 12 % lotion 1 applic topical TID 30 days #400 grams 09/24/22 [Rx Last Taken 12/08/22] insulin lispro 100 unit/mL subcutaneous pen (Humalog KwikPen (U-100) Insulin) 50 unit (0.5 mL) subcut TIDAC #0 mL 09/24/22 [Rx Last Taken 12/09/22] albuterol sulfate 2.5 mg/3 mL (0.083 %) solution for nebulization 2.5 mg inhalation Q4H PRN SOB 12/09/22 [History Last Taken 12/08/22] empagliflozin 10 mg tablet (Jardiance) 10 mg PO DAILY DM 12/09/22 [History Last Taken 12/09/22] fenofibrate nanocrystallized 145 mg tablet 145 mg PO DAILY CHOLESTEROL 12/09/22 [History Last Taken 12/09/22] furosemide 20 mg tablet 20 mg PO PRN PRN Edema 12/09/22 [History Last Taken Unknown] gabapentin 800 mg tablet 800 mg PO TID NERVE PAIN 12/09/22 [History Last Taken 12/09/22] insulin glargine U-300 conc 300 unit/mL (3 mL) subcutaneous pen (Toujeo Max U-300 SoloStar) 150 unit subcut DAILY DM 12/09/22 [History Last Taken 12/09/22] nicotine (polacrilex) 2 mg buccal mini lozenge 2 mg PO PRN PRN Smoking Cessation 12/09/22 [History Last Taken 12/08/22] potassium chloride 20 mEq tablet,extended release 20 meq PO BID Check with primary doctor 12/19/22 [History Last Taken Unknown] insulin degludec 200 unit/mL (3 mL) subcutaneous pen (Tresiba FlexTouch U-200 insulin) 104 unit subcut BID DM 12/24/22 [History Last Taken Unknown] Allergy/AdvReac Type Severity Reaction Status Date / Time cyclobenzaprine HCl Allergy Hives Verified 03/02/23 14:00 [From Flexeril] venlafaxine [From Effexor] AdvReac Severe unknown Verified 03/02/23 14:00 Family History Father CVA (cerebral vascular accident) Heart disease Diabetes Mother Thyroid disorder Surgical History H/O arthroscopic knee surgery History of delivery History of cholecystectomy Social History household members: none Smoking Status: Current some day smoker tobacco type: cigarettes how long ago did patient quit smokin PPD smoker second hand exposure: Yes alcohol intake: never substance use type: does not use caffeine: Yes Type: carbonated beverages Number of servings: 1 and coffee Number of servings: 1 ROS ROS Narrative Unable due to sleepiness and being on BiPAP Physical Exam Narrative Morbidly obese sleeping woman in no acute distress. She arouses briefly on stimulation and went back to sleep while on BiPAP. HEENT normocephalic atraumatic mucous membranes are moist extraoculars are intact briefly during eye opening then went back to sleep. Chest is symmetrical with good air movement, no wheezes rales or rhonchi no cough during the visit. Suboptimal exam due to morbid obesity, anterior exam only. Heart normal S1-S2 heart rate 95 sinus rhythm with no murmurs. Abdomen is obese Extremities have chronic venous stasis changes, poor hygiene, fissured skin consistent with recent diuresis, no open lesions noted. deferred Medical Records Data Attestation: I reviewed the patient's medical records Lab / Micro Data Attestation: I reviewed the patient's lab results. Result Diagrams: 03/02/23 14:20 03/02/23 14:20 Labs: Laboratory Results - last 24 hr 03/02/23 14:20: WBC 12.6 H, RBC 3.59 L, Hgb 9.4 L, Hct 33.0 L, MCV 91.9, MCH 26.2 L, MCHC 28.5 L, RDW Std Deviation 57.3 H, RDW Coeff of Darrion 17.0 H, Plt Count 278, MPV 9.6, Immature Gran % (Auto) 1.600 H, Neut % (Auto) 77.6 H, Lymph % (Auto) 15.5 L, [place] % (Auto) 3.8, Eos % (Auto) 0.7, Baso % (Auto) 0.8, Absolute Neuts (auto) 9.7 H, Absolute Lymphs (auto) 1.94, Nucleated RBC % 2.3 03/02/23 14:20: Sodium 136, Potassium 4.4, Chloride 102, Carbon Dioxide 30.0, Anion Gap 4 L, BUN 12, Creatinine 0.88, Estim Creat Clear Calc 72.64, Est GFR (MDRD) Af Amer 89, Est GFR (MDRD) Non-Af 73, BUN/Creatinine Ratio 13.6, Glucose 261 H, Calcium 8.9, Total Bilirubin 0.30, AST 14 L, ALT 18, Alkaline Phosphatase 59, Total Protein 7.2, Albumin 2.7 L, Globulin 4.5 H, Albumin/Globulin Ratio 0.6 L 03/02/23 14:20: Lactic Acid 2.6 H* 03/02/23 14:20: B-Natriuretic Peptide 68.4 03/02/23 14:24: POC Glucose 250 H 03/02/23 18:00: Troponin I High Sens 29 03/02/23 18:10: Urine Color Yellow, Urine Clarity Clear, Urine pH 6.0, Ur Specific [place] 1.015, Urine Protein 30 H, Urine Glucose (UA) 1000 H, Urine Ketones Negative, Urine Occult Blood 10 H, Urine Nitrite Negative, Urine Bilirubin Negative, Urine Urobilinogen Normal, Ur Leukocyte Esterase Negative, Urine RBC 0 SEEN, Urine WBC 0 SEEN, Ur Squamous Epith Cells 0 SEEN, Urine Bacteria 0 SEEN, Urine Mucus 0 SEEN 03/02/23 18:11: POC Glucose 293 H 03/02/23 18:50: Lactic Acid 0.9 Micro: Microbiology 03/02/23 18:10 Urine Catheter - Catheter Legionella Antigen - Final 03/02/23 18:10 Urine Catheter - Catheter Streptococcus pneumoniae Antigen (M - Final ABG Data ABG results: ABG 03/02/23 03/02/23 14:42 17:22 Specimen Type DAMION ART Sample Site R Radial pH 7.28 L Bicarbonate Actual 34.0 H Total CO2 36 Base Excess 7 H O2 Saturation 86 L O2 % 50 ABG pCO2 72.7 H* ABG pO2 60 L Meño Test Positive VBG pH 7.29 L VBG pO2 60 H VBG HCO3 32 H VBG Total CO2 34 H VBG O2 Sat (Calc) 87 H VBG Base Excess 6 H POC Mix VBG pCO2 Pt Tmp 67.1 H Respiration Rate 10 O2 Delivery Device BiPAP Vent Mode BiLevel Crit Call To/Read Back Yes Blood Gas Notified Whom nazario Radiology Impression Chest X-Ray 03/02/23 14:08 IMPRESSION: Pulmonary findings appear worse. Electronically Signed: George Leiva MD at 15:24 EDT , Charges/Coding Procedures Hospitalists Procedures: [id number] Critial Care 1st Hr
[2023-03-02 20:36] LABS: Allen Test Positive; Base Excess 8 mmol/L (-2 to +2); Bicarbonate 33.8 mmol/L (22-26); Blood Gas Specimen Type ART; FI02 50; O2 Delivery Device BiPAP; PEEP 8; PO2 64 mmHG (75-100); RR 22; SITE L Radial; SO2 89 % (95-99); Total Carbon Dioxide 36 mmol/L; pCO2 64.4 mmHg (35-45); pH 7.33 (7.35-7.45)
[2023-03-02] MEDS: APIXABAN 5 MG TABLET PO (20:54)
[2023-03-02] MEDS: Ammonium Lactate 225 gm Bottle 1 APPLIC TOPICAL (20:54)
[2023-03-02 21:14] LABS: Troponin-I HS 27 pg/mL (3.0-54.0)
[2023-03-03] VITALS (35 sets, daily range): BP systolic 117–167; BP diastolic 61–111; PULSE 60–108; RESP 12–24; TEMP 36.7–37.1; O2SAT 88–98; BMI 39.4
[2023-03-03 00:26] LABS: Probe Check PASS; Specimen Processing Control PASS
[2023-03-03] MEDS: Insulin Lispro 100 UNIT/ML INSULN.PEN SC ×5 (01:09→21:28)
[2023-03-03 01:20] LABS: Bedside Glucose 301 mg/dL (74-106)
[2023-03-03 01:24] LABS: Troponin-I HS 22 pg/mL (3.0-54.0)
--- NOTE | 2023-03-03 01:53 | PCM.PN.BLA ---
Progress Note Nurse reports 0127 on 03/03/2023 that patient has triggered positive sepsis screen since presentation at 1554 of 03/02/2023. Patient on antibiotics and lactic acidosis has resolved. Blood cultures already been done. Continues to be on BiPAP. No further changes to be made at this time.
[2023-03-03 03:29] LABS: Absolute Lymphocyte Count 1.16 X10^3/uL (0.83-4.51); Absolute Neutrophil Count 9.7 X10^3/uL (2.0-7.7); Basophil# 0.07 X10^3/uL; Basophil% 0.6 % (0-1); Eosinophil# 0.01 X10^3/uL; Eosinophils% 0.1 % (0-5); Hemoglobin 9.7 g/dL (12.0-15.0); Lymphocyte # 1.16 X10^3/ul (0.83-4.51); Lymphocyte % 10.2 % (19-41); Mean Corp Hgb Conc 28.5 g/dL (32-36); Mean Corpuscular Hgb 25.9 pg (27.0-32.0); Mean Corpuscular Volume 90.7 fL (81-99); Mean Platelet Vol. 9.8 fl (6.2-12.0); Monocyte# 0.21 X10^3/uL; Monocyte% 1.9 % (0-10); NRBC Flagged by Analyzer 1.1 % (0-5); Neutrophil % 85.4 % (47-70); Platelet Count 277 K/mm3 (150-450); RBC Distribution Width CV 16.7 % (11.6-14.6); RBC Distribution Width SD 54.9 fl (35.1-43.9); Red Blood Count 3.75 M/mm3 (4.2-5.4); White Blood Count 11.4 K/mm3 (4.4-11.0)
[2023-03-03 03:46] LABS: ALB/GLOB Ratio 0.6 RATIO (0.9-2.4); AST(SGOT) 15 U/L (15-37); Alanine Aminotransfer ALT/SGPT 20 U/L (13-56); Albumin, Serum 2.6 g/dL (3.2-5.0); Alkaline Phosphatase 60 U/L (45-117); Anion Gap 3 (5-15); BUN 13 mg/dL (7-18); BUN/Creat Ratio 17.2 RATIO (10-20); Calcium,Total 8.8 mg/dL (8.5-10.1); Chloride 98 mmol/L (98-107); Creatinine, Serum 0.76 mg/dL (0.55-1.02); EST Glomerular Filtration Rate 88 mL/min (>60); Est Glom Filt Rate - Afr Amer 106 mL/min (>60); Estimated Creatinine Clearance 84.11 ml/min; Globulin 4.6 g/dL (2.2-4.2); Glucose 311 mg/dL (74-106); Potassium 4.2 mmol/L (3.5-5.1); Protein, Total 7.2 g/dL (6.4-8.2); Sodium Level 136 mmol/L (136-145)
--- NOTE | 2023-03-03 04:09 | RAD_ITS ---
INDICATION: evaluate respiratory status EXAMINATION/TECHNIQUE: X-RAY - XR Chest 1 View COMPARISON: None. FINDINGS: LINES/DEVICES: None. LUNGS: Subsegmental atelectases in the right and left lung bases. The previously described airspace opacities in both lungs have improved. MEDIASTINUM AND CARDIOVASCULAR STRUCTURES: Cardiac silhouette not enlarged. Central airways and mediastinal contour are unremarkable. BONES AND SOFT TISSUES: Unremarkable. RAD/Chest 1 View (Portable) IMPRESSION: Resolving bilateral pneumonia. Electronically Signed: Patti Jensen MD at 5:42 EDT ,
[2023-03-03] MEDS: Ammonium Lactate 225 gm Bottle 1 APPLIC TOPICAL ×3 (05:42→21:25)
[2023-03-03 06:06] LABS: Bedside Glucose 243 mg/dL (74-106)
[2023-03-03] MEDS: Ipratropium/Albuterol Sulfate 3 ML AMPUL.NEB INHALATION ×4 (06:40→19:32)
--- NOTE | 2023-03-03 07:09 | PCM.PN.INT ---
Assessment & Plan Assessment/Plan (1) Acute on chronic respiratory failure with hypoxia and hypercapnia: (2) Noncompliance with CPAP treatment: PLAN: Plan RECOMMENDATIONS: 1. Continue BiPAP therapy, at a minimum, with naps and nightly. 2. Continue to wean supplemental oxygen to maintain saturations 88 to 92%. 3. Continue empiric antimicrobials for now. 4. Continue bronchodilators and steroids. 5. Diuretics as tolerated by hemodynamics and renal function. 6. Continue Eliquis per home regimen. 7. Encourage incentive spirometer use and mobilize patient as tolerated. IMPRESSIONS: 1. 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 Although an acute bacterial infectious process seems less likely, the patient remains on empiric antibiotics. She will be continued on diuretics as tolerated by hemodynamics and renal function. The patient can be weaned from BiPAP therapy to nasal cannula oxygen to maintain saturations 88 to 92%. In light of her smoking history, plan to continue bronchodilator therapy. However, prior PFTs only demonstrated a restrictive ventilatory impairment secondary to her body habitus. Overall, the patient has poor outpatient medical compliance with prescribed therapy. 2. History of restrictive lung disease secondary to obesity/history of pulmonary embolism/obstructive sleep apnea/tobacco dependency Complicates care, management, recovery and prognosis. Continue systemic anticoagulation per home regimen. Weight loss is imperative. Recommend outpatient pulmonary follow-up within 2 weeks of discharge. This note was generated with [employer] dictation software. It may contain incorrect words, spelling, and punctuation that were not noted in checking the note before signing. Subjective Subjective The patient was seen and examined at the bedside this morning. Events from the last 24 hours have been reviewed. The patient is currently afebrile, hemodynamically stable and maintaining appropriate oxygen saturations on BiPAP with an FiO2 requirement of 40%. The patient is currently documented to be overall net -2.5 L for the hospitalization. Creatinine remains within normal limits. The patient was previously under the care of Dr. Dumont of pulmonary medicine due to a history of restrictive lung disease secondary to obesity, chronic hypoxemic respiratory failure, obstructive sleep apnea and tobacco dependency. The patient was last seen in the pulmonary medicine clinic in January 2022, at which time she was noted to be noncompliant with nocturnal Pap therapy. Her last 6-minute walk test from March 2022 demonstrated the need for 4 L/min of pulsed dose oxygen. Objective Data Objective Data The patient's most recent lab work, culture data and imaging studies have all been personally reviewed. Infectious work-up has been unrevealing to date. Vital Signs: Vital Signs Temp Pulse Resp BP Pulse Ox O2 Del Method O2 Flow Rate 98.6 F 65 22 H 152/76 H 93 Bi-pap 3 03/03/23 07:00 03/03/23 07:00 03/03/23 07:00 03/03/23 07:00 03/03/23 07:00 03/03/23 07:00 03/02/23 15:03 FiO2 40 03/03/23 07:00 Oxygen Flow Rate (L/min) 3 Oxygen Delivery Method Bi-pap Weight: 237 lb 7.005 oz Body Mass Index (BMI) 39.4 Intake & Output: Intake and Output for Last 24 Hours 03/01/23 03/02/23 03/03/23 23:59 23:59 23:59 Intake Total 305 / 405 740 / 740 Output Total 200 / 2600 3400 / 3400 Balance 105 / -2195 -2660 / -2660 Lab / Micro Data Attestation: I reviewed the patient's lab results. Result Diagrams: 03/03/23 03:15 03/03/23 03:15 Labs: Laboratory Results - last 24 hr 03/02/23 14:20: WBC 12.6 H, RBC 3.59 L, Hgb 9.4 L, Hct 33.0 L, MCV 91.9, MCH 26.2 L, MCHC 28.5 L, RDW Std Deviation 57.3 H, RDW Coeff of Darrion 17.0 H, Plt Count 278, MPV 9.6, Immature Gran % (Auto) 1.600 H, Neut % (Auto) 77.6 H, Lymph % (Auto) 15.5 L, [place] % (Auto) 3.8, Eos % (Auto) 0.7, Baso % (Auto) 0.8, Absolute Neuts (auto) 9.7 H, Absolute Lymphs (auto) 1.94, Nucleated RBC % 2.3 03/02/23 14:20: Sodium 136, Potassium 4.4, Chloride 102, Carbon Dioxide 30.0, Anion Gap 4 L, BUN 12, Creatinine 0.88, Estim Creat Clear Calc 72.64, Est GFR (MDRD) Af Amer 89, Est GFR (MDRD) Non-Af 73, BUN/Creatinine Ratio 13.6, Glucose 261 H, Calcium 8.9, Total Bilirubin 0.30, AST 14 L, ALT 18, Alkaline Phosphatase 59, Total Protein 7.2, Albumin 2.7 L, Globulin 4.5 H, Albumin/Globulin Ratio 0.6 L 03/02/23 14:20: Lactic Acid 2.6 H* 03/02/23 14:20: B-Natriuretic Peptide 68.4 03/02/23 14:24: POC Glucose 250 H 03/02/23 18:00: Troponin I High Sens 29 03/02/23 18:10: Urine Color Yellow, Urine Clarity Clear, Urine pH 6.0, Ur Specific [place] 1.015, Urine Protein 30 H, Urine Glucose (UA) 1000 H, Urine Ketones Negative, Urine Occult Blood 10 H, Urine Nitrite Negative, Urine Bilirubin Negative, Urine Urobilinogen Normal, Ur Leukocyte Esterase Negative, Urine RBC 0 SEEN, Urine WBC 0 SEEN, Ur Squamous Epith Cells 0 SEEN, Urine Bacteria 0 SEEN, Urine Mucus 0 SEEN 03/02/23 18:11: POC Glucose 293 H 03/02/23 18:50: Lactic Acid 0.9 03/02/23 19:05: COVID-19 (SURESH) Negative 03/02/23 20:45: Troponin I High Sens 27 03/03/23 00:50: Troponin I High Sens 22 03/03/23 00:58: POC Glucose 301 H 03/03/23 03:15: WBC 11.4 H, RBC 3.75 L, Hgb 9.7 L, Hct 34.0 L, MCV 90.7, MCH 25.9 L, MCHC 28.5 L, RDW Std Deviation 54.9 H, RDW Coeff of Darrion 16.7 H, Plt Count 277, MPV 9.8, Immature Gran % (Auto) 1.800 H, Neut % (Auto) 85.4 H, Lymph % (Auto) 10.2 L, [place] % (Auto) 1.9, Eos % (Auto) 0.1, Baso % (Auto) 0.6, Absolute Neuts (auto) 9.7 H, Absolute Lymphs (auto) 1.16, Nucleated RBC % 1.1 03/03/23 03:15: Sodium 136, Potassium 4.2, Chloride 98, Carbon Dioxide 35.0 H, Anion Gap 3 L, BUN 13, Creatinine 0.76, Estim Creat Clear Calc 84.11, Est GFR (MDRD) Af Amer 106, Est GFR (MDRD) Non-Af 88, BUN/Creatinine Ratio 17.2, Glucose 311 H, Calcium 8.8, Total Bilirubin 0.30, AST 15, ALT 20, Alkaline Phosphatase 60, Total Protein 7.2, Albumin 2.6 L, Globulin 4.6 H, Albumin/Globulin Ratio 0.6 L 03/03/23 05:43: POC Glucose 243 H Micro: Microbiology 03/02/23 19:05 Mucosa - Nasopharyngeal Respiratory Panel (PCR) - Final 03/02/23 18:10 Urine Catheter - Catheter Legionella Antigen - Final 03/02/23 18:10 Urine Catheter - Catheter Streptococcus pneumoniae Antigen (M - Final ABG Data ABG results: ABG 03/02/23 03/02/23 03/02/23 14:42 17:22 20:31 Specimen Type DAMION ART ART Sample Site R Radial L Radial pH 7.28 L 7.33 L Bicarbonate Actual 34.0 H 33.8 H Total CO2 36 36 Base Excess 7 H 8 H O2 Saturation 86 L 89 L O2 % 50 50 ABG pCO2 72.7 H* 64.4 H ABG pO2 60 L 64 L Meño Test Positive Positive VBG pH 7.29 L VBG pO2 60 H VBG HCO3 32 H VBG Total CO2 34 H VBG O2 Sat (Calc) 87 H VBG Base Excess 6 H POC Mix VBG pCO2 Pt Tmp 67.1 H Respiration Rate 10 22 O2 Delivery Device BiPAP BiPAP Vent Mode BiLevel POC PEEP 8 Crit Call To/Read Back Yes Blood Gas Notified Whom jopperi Radiography Diagnostic Testing: Radiology Impression Chest X-Ray 03/02/23 14:08 IMPRESSION: Pulmonary findings appear worse. Electronically Signed: George Leiva MD at 15:24 EDT , Chest X-Ray 03/03/23 04:09 IMPRESSION: Resolving bilateral pneumonia. Electronically Signed: Patti Jensen MD at 5:42 EDT , Physical Exam Const alert and no apparent distress General Appearance: cooperative and on BiPAP Nutritional Appearance: morbidly obese HEENT normocephalic and head/scalp atraumatic Eyes PERRL, EOMs intact bilaterally and conjunctivae normal Neck supple Neck Narrative: Large neck circumference with redundant soft tissue. General: trachea midline Chest inspection of chest normal Resp Auscultation: diminished lung sounds; Negative for rales, rhonchi or wheezes Cardio regular rate and regular rhythm GI normal to inspection, nondistended, normoactive bowel sounds Extremity General Extremity: Negative for clubbing Skin General Skin Exam: venous stasis and dermatitis Neuro CN's II-XII intact bilaterally, moves all extremities and no focal motor deficits Psych cooperative and affect normal Charges/Coding Visit Charges Inpatient E&M: 25788 Subs Hosp L3
--- NOTE | 2023-03-03 07:23 | CPS ---
decreased RR to [address] Sanders
[2023-03-03] MEDS: dilTIAZem CD 120 MG Capsule PO (10:52)
[2023-03-03] MEDS: Furosemide 40 MG/4 ML Vial IV ×2 (10:52→18:46)
[2023-03-03] MEDS: Lisinopril 10 MG Tablet PO (10:52)
[2023-03-03] MEDS: APIXABAN 5 MG TABLET PO ×2 (10:52→21:24)
[2023-03-03] MEDS: 0.9% Saline Lock 10 ML Syringe IV (10:54)
[2023-03-03] MEDS: Insulin Glargine-YFGN 100 UNIT/ML Pen 105 UNIT SC ×2 (12:56→21:27)
--- NOTE | 2023-03-03 13:20 | WOUNDNOTE ---
wound photo: left stratton
--- NOTE | 2023-03-03 13:21 | WOUNDNOTE ---
wound photo: left vulvar region
[2023-03-03 13:26] LABS: Bedside Glucose 365 mg/dL (74-106)
[2023-03-03] MEDS: Gabapentin 800 MG Tablet PO ×2 (14:35→21:37)
--- NOTE | 2023-03-03 15:10 | CASEMGMT ---
RN?CM?LIVESTOCK DEALER?CM?to room to meet with patient for initial transition planning/care coordination?assessment.?RN?CM?introduced self and role at [facility].? Pt voices understanding and consents to?assessment?at this time.? Pt resting in bed in no distress at this time. Pt had BIPAP in place initially, but then she took it off when meal tray arrived and stated, I can't stand this thing . ? Pt is A/O at this time and answers all questions appropriately.?? Care providers, pharmacy, and demographics verified/updated at this time. PCP: Afia Specialists: Petrol Tanker Driver at [facility]. Pt states she has been in to see Dr Dumont, pulmonology, but states it has been about a year since in to see him last. Pt states she is supposed to start going to the 03/06/23. Preferred Pharmacy: [facility], [facility] Retail Insurance: [employer] Prescription Benefit: yes Living Will/HPOA: none and states is not interested in completing LNOK: daughterNaveed. Mother, Remedios Living Arrangements: Patient lives with friend in a mobile home with 3 steps and railing to enter the home. Patient states she is indep w/ADL's and manages her own meds, although she states she gets confused w/her appts and her doctor appts. She states she has the waiver program and she thinks her CM is Brandy . She states she qualifies for aides, but they do not have any available at this time. She states they are working on getting her a lift chair and medical alert button and she receives home delivered meals. Claire OCONNOR, made aware of abo e. Transportation: daughterNaveed. niece DME:Patient has shower chair, cane, walker, nebulizer, continuous glucose monitoring system, pulse ox and [facility]. She states someone can bring in the portable O2 for her to go home on. She has a BIPAP but does not wear it, stating she tried for years to tolerate it, but it drives me nuts , so she no longer wears it. SNF/HHC: No previous SNF. Pt states she currently has aides coming from [facility] and has had therapy see her as well, but then stated the aides help w/wound care. Call placed to Malka @ [facility]. She is not an active pt w/them and they have not had her in the past. [facility]them either. Call placed to Maico @ [facility], who states pt is not active w/them either. Pt made aware and states, I don't know then. I get so confused . Noted pt was discharged from [facility] in Dec w/[facility]. Call placed to Georgina @ [facility]. Georgina states she was active w/them, but d/t level of care and her home environment they are not willing to take her back. Per Georgina, pt has been admitted @ [facility] 3 times since being discharged from [facility] in Dec, so this admission would be her 5th admission this year. Georgina states they were not willing to accept her back after her last discharge from [facility], so her last date w/[facility] was 02/21/23. Pt made aware. Pt states she is interested in HHC @ d/c and states [facility] is her 1st choice and that she does not need a list of other options at this time. Call placed to Malka @ [facility] and referral made. Order placed for [facility]: SN and PT. Pt qualifies for Palliative referral per [facility] Screening tool. Discussed Palliative care w/pt and she is agreeable. Dr Neville made aware and order received. Referral sent to [facility] Palliative via e-mail. PLAN:??Home w/[facility]. Awaiting response from [facility]. Palliative referral made. Abena RODRIGUEZN?RN?CM
--- NOTE | 2023-03-03 17:34 | PN_ITS ---
Subjective Subjective Patient seen and examined. She said she felt much better. She denied any shortness of breath, cough, chest pain, palpitations, nausea, vomiting or any other symptoms. Review of systems is otherwise negative. She was on oxygen 4 L at time of review. Objective Data Objective Data Vital Signs: Vital Signs Temp Pulse Resp BP Pulse Ox O2 Del Method O2 Flow Rate 98.2 F 67 21 H 138/89 H 96 Bi-pap 7 03/03/23 17:00 03/03/23 17:00 03/03/23 17:00 03/03/23 17:00 03/03/23 17:00 03/03/23 17:00 03/03/23 16:51 FiO2 40 03/03/23 17:00 Oxygen Flow Rate (L/min) 7 Oxygen Delivery Method Bi-pap Weight: 379 lb 3.121 oz Body Mass Index (BMI) 39.4 Intake & Output: Intake and Output for Last 24 Hours 03/01/23 03/02/23 03/03/23 23:59 23:59 23:59 Intake Total 305 / 405 1850 / 1850 Output Total 200 / 2600 4250 / 4250 Balance 105 / -2195 -2400 / -2400 Lab / Micro Data Result Diagrams: 03/03/23 03:15 03/03/23 03:15 Labs: Laboratory Results - last 24 hr 03/02/23 18:00: Troponin I High Sens 29 03/02/23 18:10: Urine Color Yellow, Urine Clarity Clear, Urine pH 6.0, Ur Specific [place] 1.015, Urine Protein 30 H, Urine Glucose (UA) 1000 H, Urine Ketones Negative, Urine Occult Blood 10 H, Urine Nitrite Negative, Urine Bilirubin Negative, Urine Urobilinogen Normal, Ur Leukocyte Esterase Negative, Urine RBC 0 SEEN, Urine WBC 0 SEEN, Ur Squamous Epith Cells 0 SEEN, Urine Bacteria 0 SEEN, Urine Mucus 0 SEEN 03/02/23 18:11: POC Glucose 293 H 03/02/23 18:50: Lactic Acid 0.9 03/02/23 19:05: COVID-19 (SURESH) Negative 03/02/23 20:45: Troponin I High Sens 27 03/03/23 00:50: Troponin I High Sens 22 03/03/23 00:58: POC Glucose 301 H 03/03/23 03:15: WBC 11.4 H, RBC 3.75 L, Hgb 9.7 L, Hct 34.0 L, MCV 90.7, MCH 25.9 L, MCHC 28.5 L, RDW Std Deviation 54.9 H, RDW Coeff of Darrion 16.7 H, Plt Count 277, MPV 9.8, Immature Gran % (Auto) 1.800 H, Neut % (Auto) 85.4 H, Lymph % (Auto) 10.2 L, [place] % (Auto) 1.9, Eos % (Auto) 0.1, Baso % (Auto) 0.6, Absolute Neuts (auto) 9.7 H, Absolute Lymphs (auto) 1.16, Nucleated RBC % 1.1 03/03/23 03:15: Sodium 136, Potassium 4.2, Chloride 98, Carbon Dioxide 35.0 H, Anion Gap 3 L, BUN 13, Creatinine 0.76, Estim Creat Clear Calc 84.11, Est GFR (MDRD) Af Amer 106, Est GFR (MDRD) Non-Af 88, BUN/Creatinine Ratio 17.2, Glucose 311 H, Calcium 8.8, Total Bilirubin 0.30, AST 15, ALT 20, Alkaline Phosphatase 60, Total Protein 7.2, Albumin 2.6 L, Globulin 4.6 H, Albumin/Globulin Ratio 0.6 L 03/03/23 05:43: POC Glucose 243 H 03/03/23 12:55: POC Glucose 365 H Micro: Microbiology 03/02/23 17:20 Wound - Leg, Right Gram Stain - Final 03/02/23 17:20 Wound - Leg, Right Wound Culture - Preliminary GNR non produce field merchandiser 03/02/23 18:10 Urine Catheter - Catheter Urine Culture - Preliminary Culture exhibits no growth. 03/02/23 19:05 Mucosa - Nasopharyngeal Respiratory Panel (PCR) - Final 03/02/23 18:10 Urine Catheter - Catheter Legionella Antigen - Final 03/02/23 18:10 Urine Catheter - Catheter Streptococcus pneumoniae Antigen (M - Final ABG Data ABG results: ABG 03/02/23 20:31 Specimen Type ART Sample Site L Radial pH 7.33 L Bicarbonate Actual 33.8 H Total CO2 36 Base Excess 8 H O2 Saturation 89 L O2 % 50 ABG pCO2 64.4 H ABG pO2 64 L Meño Test Positive Respiration Rate 22 O2 Delivery Device BiPAP POC PEEP 8 Radiography Diagnostic Testing: Radiology Impression Chest X-Ray 03/03/23 04:09 IMPRESSION: Resolving bilateral pneumonia. Electronically Signed: Patti Jensen MD at 5:42 EDT , Physical Exam Const alert, oriented x3, no apparent distress and well nourished Constitutional Narrative: Super morbid obesity HEENT normocephalic, moist oral mucous membranes and oropharynx normal Neck supple and no JVD Lymph Lymphatic: no lymphadenopathy noted and no lymphedema noted Resp Resp Narrative: diminished breath sounds bibasally, no wheezes or crackles. on 4L of oxygen by nasal canula, later transitioned to BIPAP Cardio regular rate, regular rhythm, S1 normal heart sound, S2 normal heart sound and no murmurs GI normal to inspection, nondistended, normoactive bowel sounds, soft to palpation, non-tender and non-distended Extremity normal capillary refill, no clubbing, cyanosis or edema and no calf tenderness Skin General Skin Exam: no breakdown Neuro CN's II-XII intact bilaterally and no focal motor deficits Psych thought process normal Appearance: appropriate Assessment & Plan Assessment/Plan (1) Acute on chronic respiratory failure with hypoxia and hypercapnia: PLAN: Plan #Acute on chronic hypoxic and hypercapnic respiratory failure * Thought to be multifactorial, due to pneumonia and obesity hypoventilation syndrome as well as probable CHF * On IV furosemide as well as IV Solu-Medrol. Started on IV ceftriaxone and azithromycin but this was switched to IV Vanco and Zosyn. * Breathing treatments with bronchodilators. Titrate oxygen to maintain saturation above 90%. * Critical care on board. * #Perianal abscess: Had been treated for necrotizing fasciitis of the left groin in [facility] in December 2023 and had debridement done. She went back in January with pain in the right groin and had incision and drainage on the right side. Wound care on board. #Type 2 diabetes mellitus with hyperglycemia: Jardiance and metformin on hold. Insulin sliding scale. Accu-Cheks ACHS. #Lactic acidosis: Thought to be due to hypoxia. Stable #Heart failure preserved ejection fraction: Currently being diuresed with Lasix. #History of adrenal incidentaloma: Follow-up with PPI for further work-up as needed #LOGAN: On CPAP nightly. #GERD: On PPI #Hypertension: On lisinopril Nicotine dependence: Usually smokes and or vapes. Counseled about quitting. Nicotine patch as needed. #Super morbid obesity: BMI 63.1. Complicates acute care, expected recovery and prognosis. History of DVT: On Eliquis DVT prophylaxis: On Eliquis already for DVT treatment Charges/Coding Visit Charges Inpatient E&M: 89451 Subs Hosp L2
[2023-03-03] MEDS: Juven (unflavored) Packet 1 PACKET PO (18:44)
[2023-03-03] MEDS: Acetaminophen 325 MG Tablet 650 MG PO (19:56)
[2023-03-03 20:24] LABS: Vancomycin, Trough Level 17.8 ug/mL (5.0-15.0)
[2023-03-03] MEDS: Atorvastatin Calcium 80 MG Tablet PO (21:24)
[2023-03-03 21:45] LABS: Bedside Glucose 419 mg/dL (74-106)
[2023-03-03 21:55] LABS: Bedside Glucose 452 mg/dL (74-106)
[2023-03-04] VITALS (19 sets, daily range): BP systolic 92–163; BP diastolic 64–86; PULSE 59–94; RESP 12–23; TEMP 36.4–36.9; O2SAT 92–99; BMI 62.4
--- NOTE | 2023-03-04 00:08 | PCM.RX.CS ---
Consult Pharmacy has been consulted to manage selected antiobiotic: Vancomycin Type of Consult: Follow-up Prior Doses of Antibiotics Received/Current Regimen: Medications Vancomycin HCl 1,500 mg/ (Sodium Chloride) 530 mls @ 250 mls/hr IV Q8H KIAN Last Admin: 03/03/23 22:22 Dose: Infused Labs: Sodium 136 mmol/L (136-145) 03/03/23 03:15 Potassium 4.2 mmol/L (3.5-5.1) 03/03/23 03:15 Chloride 98 mmol/L (98-107) 03/03/23 03:15 Carbon Dioxide 35.0 mmol/L (21.0-32.0) H 03/03/23 03:15 Anion Gap 3 (5-15) L 03/03/23 03:15 BUN 13 mg/dL (7-18) 03/03/23 03:15 Creatinine 0.76 mg/dL (0.55-1.02) 03/03/23 03:15 Est GFR (MDRD) Af Amer 106 mL/min (>60) 03/03/23 03:15 Est GFR (MDRD) Non-Af 88 mL/min (>60) 03/03/23 03:15 BUN/Creatinine Ratio 17.2 RATIO (10-20) 03/03/23 03:15 Glucose 311 mg/dL (74-106) H 03/03/23 03:15 Vancomycin Trough 17.8 ug/mL (5.0-15.0) H 03/03/23 19:15 Microbiology: Microbiology 03/02/23 17:20 Wound - Leg, Right Gram Stain - Final 03/02/23 17:20 Wound - Leg, Right Wound Culture - Preliminary GNR non cultural anthropology professor 03/02/23 18:10 Urine Catheter - Catheter Urine Culture - Preliminary Culture exhibits no growth. 03/02/23 19:05 Mucosa - Nasopharyngeal Respiratory Panel (PCR) - Final 03/02/23 18:10 Urine Catheter - Catheter Legionella Antigen - Final 03/02/23 18:10 Urine Catheter - Catheter Streptococcus pneumoniae Antigen (M - Final Weight used for dosin kg Estimated Creatinine Clearance: 152 Goal Trough: 15-20 mcg/mL Pharmacy Plan for Drug Dosing: Vancomycin trough level of 17.8 was within the target range of 15-20. Will continue dosing at 1500mg q8h, and re-draw a trough level in two days. Pharmacy Service will continue to monitor and adjust dosing as required. Follow-Up Labs: Trough Vancomycin Labs to be done on [date and time ordered]: 03/05/23 @[id number]
[2023-03-04 02:11] LABS: Bedside Glucose 414 mg/dL (74-106)
[2023-03-04] MEDS: Insulin Lispro 100 UNIT/ML INSULN.PEN 16 UNIT SC (02:22)
[2023-03-04] MEDS: 0.9% Saline Lock 10 ML Syringe IV (03:30)
[2023-03-04 03:50] LABS: Absolute Lymphocyte Count 0.92 X10^3/uL (0.83-4.51); Absolute Neutrophil Count 8.7 X10^3/uL (2.0-7.7); Basophil# 0.03 X10^3/uL; Basophil% 0.3 % (0-1); Hematocrit 33.3 % (37-47); Hemoglobin 9.7 g/dL (12.0-15.0); Lymphocyte # 0.92 X10^3/ul (0.83-4.51); Lymphocyte % 9.1 % (19-41); Mean Corp Hgb Conc 29.1 g/dL (32-36); Mean Corpuscular Hgb 25.9 pg (27.0-32.0); Mean Platelet Vol. 10.1 fl (6.2-12.0); Monocyte# 0.34 X10^3/uL; Monocyte% 3.4 % (0-10); NRBC Flagged by Analyzer 0.6 % (0-5); Neutrophil # 8.72 X10^3/uL (2.7-7.7); Neutrophil % 86.2 % (47-70); Platelet Count 291 K/mm3 (150-450); RBC Distribution Width CV 16.9 % (11.6-14.6); RBC Distribution Width SD 54.3 fl (35.1-43.9); Red Blood Count 3.74 M/mm3 (4.2-5.4); White Blood Count 10.1 K/mm3 (4.4-11.0)
[2023-03-04 04:05] LABS: Anion Gap 4 (5-15); BUN 24 mg/dL (7-18); Calcium,Total 9.5 mg/dL (8.5-10.1); Chloride 93 mmol/L (98-107); EST Glomerular Filtration Rate 64 mL/min (>60); Est Glom Filt Rate - Afr Amer 77 mL/min (>60); Estimated Creatinine Clearance 63.93 ml/min; Glucose 409 mg/dL (74-106); Sodium Level 134 mmol/L (136-145)
[2023-03-04] MEDS: Ammonium Lactate 225 gm Bottle 1 APPLIC TOPICAL ×3 (05:36→22:20)
[2023-03-04] MEDS: Gabapentin 800 MG Tablet PO ×3 (05:36→22:18)
[2023-03-04] MEDS: Acetaminophen 325 MG Tablet 650 MG PO ×2 (05:47→22:18)
[2023-03-04] MEDS: Ipratropium/Albuterol Sulfate 3 ML AMPUL.NEB INHALATION ×4 (06:43→19:30)
--- NOTE | 2023-03-04 07:07 | PN.CC_ITS ---
Assessment & Plan Assessment/Plan (1) Acute on chronic respiratory failure with hypoxia and hypercapnia: (2) Noncompliance with CPAP treatment: PLAN: Plan RECOMMENDATIONS: 1. Continue BiPAP therapy, at a minimum, with naps and nightly. 2. Continue to wean supplemental oxygen to maintain saturations 88 to 92%. 3. Continue empiric antimicrobials to complete 7 days of therapy. 4. Continue bronchodilators and steroids. Okay to transition to prednisone to complete 5-day burst. 5. Transition from IV Lasix to p.o. route, per home regimen. 6. Continue Eliquis per home regimen. 7. Encourage incentive spirometer use and mobilize patient as tolerated. 8. The patient is medically stable for transfer out of the intensive care unit. 9. Outpatient pulmonary follow-up within 2 weeks of discharge. IMPRESSIONS: 1. 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 Although an acute bacterial infectious process seems less likely, the patient remains on empiric antibiotics. She will be continued on diuretics as tolerated by hemodynamics and renal function. At the present time, the patient is maintaining appropriate oxygen saturations on her baseline requirement. She will be continued on bronchodilator therapy. However, prior PFTs only demonstrated a restrictive ventilatory impairment secondary to her body habitus. Overall, the patient has poor outpatient medical compliance with prescribed therapy. 2. History of restrictive lung disease secondary to obesity/history of pulmonary embolism/obstructive sleep apnea/tobacco dependency Complicates care, management, recovery and prognosis. Continue systemic anticoagulation per home regimen. Weight loss is imperative. Recommend outpatient pulmonary follow-up within 2 weeks of discharge. This note was generated with [employer] dictation software. It may contain incorrect words, spelling, and punctuation that were not noted in checking the note before signing. Subjective Subjective The patient was seen and examined at the bedside this morning. Events from the last 24 hours have been reviewed. The patient is currently afebrile, hemodynamically stable and maintaining appropriate oxygen saturations on 4 L/min via nasal cannula. The patient was reportedly compliant with BiPAP therapy overnight. She is documented to be overall net -6 L for the hospitalization. Objective Data Objective Data The patient's most recent lab work, culture data and imaging studies have all been personally reviewed. Infectious work-up has been unrevealing to date. Vital Signs: Vital Signs Temp Pulse Resp BP Pulse Ox O2 Del Method O2 Flow Rate 98.3 F 64 19 H 163/70 H 96 Nasal Cannula 4 03/04/23 07:00 03/04/23 07:00 03/04/23 07:00 03/04/23 07:00 03/04/23 07:00 03/04/23 07:00 03/04/23 07:00 FiO2 40 03/04/23 04:00 Oxygen Flow Rate (L/min) 4 Oxygen Delivery Method Nasal Cannula Weight: 374 lb 12.573 oz Body Mass Index (BMI) 62.4 Intake & Output: Intake and Output for Last 24 Hours 03/02/23 03/03/23 03/04/23 23:59 23:59 23:59 Intake Total 305 / 405 2680.75 / 2680.75 580 / 580 Output Total 200 / 2600 8350 / 8350 1000 / 1000 Balance 105 / -2195 -5669.25 / -5669.25 -420 / -420 Lab / Micro Data Attestation: I reviewed the patient's lab results. Result Diagrams: 03/04/23 03:34 03/04/23 03:34 Labs: Laboratory Results - last 24 hr 03/03/23 12:55: POC Glucose 365 H 03/03/23 18:45: POC Glucose 419 H 03/03/23 19:15: Vancomycin Trough 17.8 H 03/03/23 21:26: POC Glucose 452 H* 03/04/23 01:52: POC Glucose 414 H 03/04/23 03:34: WBC 10.1, RBC 3.74 L, Hgb 9.7 L, Hct 33.3 L, MCV 89.0, MCH 25.9 L, MCHC 29.1 L, RDW Std Deviation 54.3 H, RDW Coeff of Darrion 16.9 H, Plt Count 291, MPV 10.1, Immature Gran % (Auto) 1.000 H, Neut % (Auto) 86.2 H, Lymph % (Auto) 9.1 L, [place] % (Auto) 3.4, Eos % (Auto) 0.0, Baso % (Auto) 0.3, Absolute Neuts (auto) 8.7 H, Absolute Lymphs (auto) 0.92, Nucleated RBC % 0.6 03/04/23 03:34: Sodium 134 L, Potassium 4.0, Chloride 93 L, Carbon Dioxide 37.0 H, Anion Gap 4 L, BUN 24 H, Creatinine 1.00, Estim Creat Clear Calc 63.93, Est GFR (MDRD) Af Amer 77, Est GFR (MDRD) Non-Af 64, BUN/Creatinine Ratio 24.0 H, Glucose 409 H, Calcium 9.5 Micro: Microbiology 03/02/23 17:20 Wound - Leg, Right Gram Stain - Final 03/02/23 17:20 Wound - Leg, Right Wound Culture - Preliminary GNR non cash reconciliation specialist 03/02/23 18:10 Urine Catheter - Catheter Urine Culture - Preliminary Culture exhibits no growth. 03/02/23 19:05 Mucosa - Nasopharyngeal Respiratory Panel (PCR) - Final 03/02/23 18:10 Urine Catheter - Catheter Legionella Antigen - Final 03/02/23 18:10 Urine Catheter - Catheter Streptococcus pneumoniae Antigen (M - Final ABG Data ABG results: ABG 03/02/23 03/02/23 03/02/23 14:42 17:22 20:31 Specimen Type DAMION ART ART Sample Site R Radial L Radial pH 7.28 L 7.33 L Bicarbonate Actual 34.0 H 33.8 H Total CO2 36 36 Base Excess 7 H 8 H O2 Saturation 86 L 89 L O2 % 50 50 ABG pCO2 72.7 H* 64.4 H ABG pO2 60 L 64 L Meño Test Positive Positive VBG pH 7.29 L VBG pO2 60 H VBG HCO3 32 H VBG Total CO2 34 H VBG O2 Sat (Calc) 87 H VBG Base Excess 6 H POC Mix VBG pCO2 Pt Tmp 67.1 H Respiration Rate 10 22 O2 Delivery Device BiPAP BiPAP Vent Mode BiLevel POC PEEP 8 Crit Call To/Read Back Yes Blood Gas Notified Whom jopperi Radiography Diagnostic Testing: Radiology Impression Chest X-Ray 03/02/23 14:08 IMPRESSION: Pulmonary findings appear worse. Electronically Signed: George Leiva MD at 15:24 EDT , Chest X-Ray 03/03/23 04:09 IMPRESSION: Resolving bilateral pneumonia. Electronically Signed: Patti Jensen MD at 5:42 EDT , Physical Exam Const alert and no apparent distress Constitutional Narrative: Sitting in bedside recliner. General Appearance: cooperative Nutritional Appearance: morbidly obese HEENT normocephalic and head/scalp atraumatic Eyes PERRL, EOMs intact bilaterally and conjunctivae normal Neck supple Neck Narrative: Large neck circumference with redundant soft tissue. General: trachea midline Chest inspection of chest normal Resp Auscultation: diminished lung sounds; Negative for rales, rhonchi or wheezes Cardio regular rate and regular rhythm GI normal to inspection, nondistended, normoactive bowel sounds Extremity General Extremity: Negative for clubbing Skin General Skin Exam: venous stasis and dermatitis Neuro CN's II-XII intact bilaterally, moves all extremities and no focal motor deficits Psych cooperative and affect normal Charges/Coding Visit Charges Inpatient E&M: 64235 Subs Hosp L2
[2023-03-04] MEDS: Insulin Lispro 100 UNIT/ML INSULN.PEN SC ×4 (08:16→22:21)
[2023-03-04] MEDS: dilTIAZem CD 120 MG Capsule PO (08:17)
[2023-03-04] MEDS: Fenofibrate 145 MG Tablet PO (08:17)
[2023-03-04] MEDS: Lisinopril 10 MG Tablet PO (08:17)
[2023-03-04] MEDS: Juven (unflavored) Packet 1 PACKET PO ×2 (08:17→16:23)
[2023-03-04] MEDS: Insulin Glargine-YFGN 100 UNIT/ML Pen 105 UNIT SC ×2 (08:17→22:20)
[2023-03-04] MEDS: APIXABAN 5 MG TABLET PO ×2 (08:17→22:19)
[2023-03-04] MEDS: Furosemide 40 MG Tablet PO ×2 (08:21→16:24)
--- NOTE | 2023-03-04 09:32 | CASEMGMT ---
Addendum entered by Ines Lopez 03/04/23 14:54: RN CM into pt room, pt sitting up in chair, made pt aware that [facility] is unable to accept her for services. Pt states she already sees a nurse from [facility]. Made her aware that this RN CM will contact them as this was not know. Message sent via [employer] to verify. Original Note: Received vm from Anna at [facility] who states they are unable to accept pt for services as she is more care than they can provide.
--- NOTE | 2023-03-04 11:14 | WOUNDNOTE ---
Choe cath removed per Dr order and patient request. pt tolerated well. callum care provided.
[2023-03-04 11:45] LABS: Bedside Glucose 355 mg/dL (74-106)
--- NOTE | 2023-03-04 14:10 | PCM.PROGNOTE ---
Subjective Subjective Patient seen and examined. She had no active complaints and had an uneventful night. She is feeling better today. Review of systems is otherwise negative. She has remained hemodynamically stable. She is on 4L of oxygen by nasal canula. Objective Data Objective Data Vital Signs: Vital Signs Temp Pulse Resp BP Pulse Ox O2 Del Method O2 Flow Rate 97.6 F L 90 22 H 146/82 H 94 Nasal Cannula 4 03/04/23 10:00 03/04/23 11:43 03/04/23 11:43 03/04/23 10:00 03/04/23 10:00 03/04/23 10:00 03/04/23 10:00 FiO2 40 03/04/23 08:47 Oxygen Flow Rate (L/min) 4 Oxygen Delivery Method Nasal Cannula Weight: 374 lb 12.573 oz Body Mass Index (BMI) 62.4 Intake & Output: Intake and Output for Last 24 Hours 03/02/23 03/03/23 03/04/23 23:59 23:59 23:59 Intake Total 305 / 405 2680.75 / 2680.75 630 / 630 Output Total 200 / 2600 8350 / 8350 1000 / 1000 Balance 105 / -2195 -5669.25 / -5669.25 -370 / -370 Lab / Micro Data Result Diagrams: 03/04/23 03:34 03/04/23 03:34 Labs: Laboratory Results - last 24 hr 03/03/23 18:45: POC Glucose 419 H 03/03/23 19:15: Vancomycin Trough 17.8 H 03/03/23 21:26: POC Glucose 452 H* 03/04/23 01:52: POC Glucose 414 H 03/04/23 03:34: WBC 10.1, RBC 3.74 L, Hgb 9.7 L, Hct 33.3 L, MCV 89.0, MCH 25.9 L, MCHC 29.1 L, RDW Std Deviation 54.3 H, RDW Coeff of Darrion 16.9 H, Plt Count 291, MPV 10.1, Immature Gran % (Auto) 1.000 H, Neut % (Auto) 86.2 H, Lymph % (Auto) 9.1 L, [place] % (Auto) 3.4, Eos % (Auto) 0.0, Baso % (Auto) 0.3, Absolute Neuts (auto) 8.7 H, Absolute Lymphs (auto) 0.92, Nucleated RBC % 0.6 03/04/23 03:34: Sodium 134 L, Potassium 4.0, Chloride 93 L, Carbon Dioxide 37.0 H, Anion Gap 4 L, BUN 24 H, Creatinine 1.00, Estim Creat Clear Calc 63.93, Est GFR (MDRD) Af Amer 77, Est GFR (MDRD) Non-Af 64, BUN/Creatinine Ratio 24.0 H, Glucose 409 H, Calcium 9.5 03/04/23 11:22: POC Glucose 355 H Micro: Microbiology 03/02/23 15:50 Blood Culture (Wb) - Arm Left Blood Culture - Preliminary No growth in 48 hours. 03/02/23 15:30 Blood Culture (Wb) - Anticubital Right Blood Culture - Preliminary No growth in 48 hours. 03/02/23 18:10 Urine Catheter - Catheter Urine Culture - Preliminary Culture exhibits no growth. 03/02/23 17:20 Wound - Leg, Right Gram Stain - Final 03/02/23 17:20 Wound - Leg, Right Wound Culture - Preliminary Proteus mirabilis Mixed Gram Pos & Gram Neg Org 03/02/23 19:05 Mucosa - Nasopharyngeal Respiratory Panel (PCR) - Final 03/02/23 18:10 Urine Catheter - Catheter Legionella Antigen - Final 03/02/23 18:10 Urine Catheter - Catheter Streptococcus pneumoniae Antigen (M - Final Physical Exam Const alert, oriented x3, no apparent distress and well nourished Constitutional Narrative: Super morbid obesity General Appearance: cooperative HEENT normocephalic, head/scalp atraumatic, moist oral mucous membranes and oropharynx normal Mouth: dry mucous membranes Eyes PERRL and EOMs intact bilaterally Neck supple and no JVD Lymph Lymphatic: no lymphadenopathy noted and no lymphedema noted Resp Resp Narrative: diminished breath sounds bibasally, no wheezes or crackles. on 4L of oxygen by nasal canula, Cardio regular rate, regular rhythm, S1 normal heart sound, S2 normal heart sound and no murmurs Cardio Narrative: Regular. GI normal to inspection, nondistended, normoactive bowel sounds, soft to palpation, non-tender and non-distended Extremity normal capillary refill, no clubbing, cyanosis or edema and no calf tenderness Skin General Skin Exam: no breakdown Neuro CN's II-XII intact bilaterally, moves all extremities and no focal motor deficits Psych thought process normal and affect normal Appearance: appropriate Assessment & Plan Assessment/Plan (1) Acute on chronic respiratory failure with hypoxia and hypercapnia: PLAN: Plan #Acute on chronic hypoxic and hypercapnic respiratory failure Thought to be multifactorial, due to pneumonia and obesity hypoventilation syndrome as well as probable CHF On IV furosemide as well as IV Solu-Medrol. Started on IV ceftriaxone and azithromycin but this was switched to IV Vanco and Zosyn. Breathing treatments with bronchodilators. Titrate oxygen to maintain saturation above 90%. Critical care on board. #Perianal abscess: Had been treated for necrotizing fasciitis of the left groin in [facility] in December 2023 and had debridement done. She went back in January with pain in the right groin and had incision and drainage on the right side. Wound care on board. #Type 2 diabetes mellitus with hyperglycemia: Jardiance and metformin on hold. Insulin sliding scale. Accu-Cheks ACHS. #Lactic acidosis: Thought to be due to hypoxia. Stable #Heart failure preserved ejection fraction: Currently being diuresed with Lasix. #History of adrenal incidentaloma: Follow-up with PPI for further work-up as needed #LOGAN: On CPAP nightly. #GERD: On PPI #Hypertension: On lisinopril Nicotine dependence: Usually smokes and or vapes. Counseled about quitting. Nicotine patch as needed. #Super morbid obesity: BMI 63.1. Complicates acute care, expected recovery and prognosis. History of DVT: On Eliquis DVT prophylaxis: On Eliquis already for DVT treatment Disposition: anticipate dc over the next 24-48 hours Charges/Coding Visit Charges Inpatient E&M: 80903 Subs Hosp L2
[2023-03-04 16:51] LABS: Bedside Glucose 441 mg/dL (74-106)
[2023-03-04] MEDS: Nystatin Powder 15gm Bottle 1 APPLIC TOPICAL (22:19)
[2023-03-04] MEDS: Atorvastatin Calcium 80 MG Tablet PO (22:19)
[2023-03-05] VITALS (10 sets, daily range): BP systolic 140–159; BP diastolic 75–94; PULSE 52–72; RESP 12–20; TEMP 35.7–36.6; O2SAT 75–99; BMI 61.9
[2023-03-05 00:16] LABS: Bedside Glucose 393 mg/dL (74-106)
[2023-03-05 03:37] LABS: Absolute Lymphocyte Count 2.12 X10^3/uL (0.83-4.51); Absolute Neutrophil Count 8.3 X10^3/uL (2.0-7.7); Basophil# 0.03 X10^3/uL; Basophil% 0.3 % (0-1); Eosinophil# 0.01 X10^3/uL; Eosinophils% 0.1 % (0-5); Hematocrit 32.3 % (37-47); Hemoglobin 9.4 g/dL (12.0-15.0); Lymphocyte # 2.12 X10^3/ul (0.83-4.51); Lymphocyte % 19.1 % (19-41); Mean Corp Hgb Conc 29.1 g/dL (32-36); Mean Corpuscular Hgb 25.7 pg (27.0-32.0); Mean Corpuscular Volume 88.3 fL (81-99); Mean Platelet Vol. 9.8 fl (6.2-12.0); Monocyte# 0.62 X10^3/uL; Monocyte% 5.6 % (0-10); NRBC Flagged by Analyzer 0.4 % (0-5); Neutrophil # 8.26 X10^3/uL (2.7-7.7); Neutrophil % 74.4 % (47-70); Platelet Count 266 K/mm3 (150-450); RBC Distribution Width CV 16.5 % (11.6-14.6); RBC Distribution Width SD 53.4 fl (35.1-43.9); Red Blood Count 3.66 M/mm3 (4.2-5.4); White Blood Count 11.1 K/mm3 (4.4-11.0)
[2023-03-05 03:49] LABS: Anion Gap 4 (5-15); BUN 29 mg/dL (7-18); BUN/Creat Ratio 31.5 RATIO (10-20); Chloride 90 mmol/L (98-107); Creatinine, Serum 0.92 mg/dL (0.55-1.02); EST Glomerular Filtration Rate 70 mL/min (>60); Est Glom Filt Rate - Afr Amer 85 mL/min (>60); Estimated Creatinine Clearance 69.49 ml/min; Glucose 330 mg/dL (74-106); Potassium 3.4 mmol/L (3.5-5.1); Sodium Level 133 mmol/L (136-145)
[2023-03-05] MEDS: Gabapentin 800 MG Tablet PO ×2 (05:23→14:26)
[2023-03-05] MEDS: Acetaminophen 325 MG Tablet 650 MG PO (05:23)
[2023-03-05] MEDS: Ammonium Lactate 225 gm Bottle 1 APPLIC TOPICAL (05:24)
[2023-03-05] MEDS: Insulin Lispro 100 UNIT/ML INSULN.PEN SC ×2 (06:06→12:00)
[2023-03-05 06:30] LABS: Bedside Glucose 259 mg/dL (74-106)
--- NOTE | 2023-03-05 07:01 | PN.CC_ITS ---
Assessment & Plan Assessment/Plan (1) Acute on chronic respiratory failure with hypoxia and hypercapnia: (2) Noncompliance with CPAP treatment: PLAN: Plan RECOMMENDATIONS: 1. Continue BiPAP therapy, at a minimum, with naps and nightly. 2. Continue to wean supplemental oxygen to maintain saturations 88 to 92%. 3. Continue antimicrobials to complete 7 days of therapy. 4. Continue bronchodilators and steroids. Plan for 5-day prednisone burst at discharge. 5. Continue Lasix regimen. 6. Continue Eliquis per home regimen. 7. Encourage incentive spirometer use and mobilize patient as tolerated. 8. Outpatient pulmonary follow-up within 2 weeks of discharge. We will sign of f. Please call with any additional questions. IMPRESSIONS: 1. 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 Although an acute bacterial infectious process seems less likely, the patient remains on empiric antibiotics. She will be continued on diuretics as tolerated by hemodynamics and renal function. At the present time, the patient is maintaining appropriate oxygen saturations on her baseline requirement. She will be continued on bronchodilator therapy. However, prior PFTs only demonstrated a restrictive ventilatory impairment secondary to her body habitus. Overall, the patient has poor outpatient medical compliance with prescribed therapy. 2. History of restrictive lung disease secondary to obesity/history of pulmonary embolism/obstructive sleep apnea/tobacco dependency Complicates care, management, recovery and prognosis. Continue systemic anticoagulation per home regimen. Weight loss is imperative. Recommend outpatient pulmonary follow-up within 2 weeks of discharge. This note was generated with [employer] dictation software. It may contain incorrect words, spelling, and punctuation that were not noted in checking the note before signing. Subjective Subjective The patient was seen and examined at the bedside this morning. Events from the last 24 hours have been reviewed. The patient is currently afebrile, hemodynamically stable and maintaining appropriate oxygen saturations on 4 L/min via nasal cannula, which is her baseline requirement. She is overall net -6.5 L for the hospitalization. Potassium is low at 3.4. Creatinine is within normal limits. Objective Data Objective Data The patient's most recent lab work, culture data and imaging studies have all been personally reviewed. Infectious work-up has been unrevealing to date. Vital Signs: Vital Signs Temp Pulse Resp BP Pulse Ox O2 Del Method O2 Flow Rate 98 F 60 18 140/94 H 96 Nasal Cannula 4 03/05/23 06:00 03/05/23 06:00 03/05/23 06:00 03/05/23 06:00 03/05/23 06:00 03/05/23 06:00 03/05/23 06:00 FiO2 40 03/05/23 00:55 Oxygen Flow Rate (L/min) 4 Oxygen Delivery Method Nasal Cannula Weight: 372 lb 2.244 oz Body Mass Index (BMI) 61.9 Intake & Output: Intake and Output for Last 24 Hours 03/03/23 03/04/23 03/05/23 23:59 23:59 23:59 Intake Total 2680.75 / 2680.75 920 / 920 50 / 50 Output Total 8350 / 8350 1999 Balance -5669.25 / -5669.25 -1080 / -1080 50 / 50 Lab / Micro Data Attestation: I reviewed the patient's lab results. Result Diagrams: 03/05/23 03:30 03/05/23 03:30 Labs: Laboratory Results - last 24 hr 03/04/23 11:22: POC Glucose 355 H 03/04/23 16:22: POC Glucose 441 H 03/04/23 22:17: POC Glucose 393 H 03/05/23 03:30: WBC 11.1 H, RBC 3.66 L, Hgb 9.4 L, Hct 32.3 L, MCV 88.3, MCH 25.7 L, MCHC 29.1 L, RDW Std Deviation 53.4 H, RDW Coeff of Darrion 16.5 H, Plt Count 266, MPV 9.8, Immature Gran % (Auto) 0.500, Neut % (Auto) 74.4 H, Lymph % (Auto) 19.1, [place] % (Auto) 5.6, Eos % (Auto) 0.1, Baso % (Auto) 0.3, Absolute Neuts (auto) 8.3 H, Absolute Lymphs (auto) 2.12, Nucleated RBC % 0.4 03/05/23 03:30: Sodium 133 L, Potassium 3.4 L, Chloride 90 L, Carbon Dioxide 39.0 H, Anion Gap 4 L, BUN 29 H, Creatinine 0.92, Estim Creat Clear Calc 69.49, Est GFR (MDRD) Af Amer 85, Est GFR (MDRD) Non-Af 70, BUN/Creatinine Ratio 31.5 H , Glucose 330 H, Calcium 9.0 03/05/23 06:03: POC Glucose 259 H Micro: Microbiology 03/02/23 15:50 Blood Culture (Wb) - Arm Left Blood Culture - Preliminary No growth in 48 hours. 03/02/23 15:30 Blood Culture (Wb) - Anticubital Right Blood Culture - Preliminary No growth in 48 hours. 03/02/23 18:10 Urine Catheter - Catheter Urine Culture - Preliminary Culture exhibits no growth. 03/02/23 17:20 Wound - Leg, Right Gram Stain - Final 03/02/23 17:20 Wound - Leg, Right Wound Culture - Preliminary Proteus mirabilis Mixed Gram Pos & Gram Neg Org 03/02/23 19:05 Mucosa - Nasopharyngeal Respiratory Panel (PCR) - Final 03/02/23 18:10 Urine Catheter - Catheter Legionella Antigen - Final 03/02/23 18:10 Urine Catheter - Catheter Streptococcus pneumoniae Antigen (M - Final ABG Data ABG results: ABG 03/02/23 03/02/23 03/02/23 14:42 17:22 20:31 Specimen Type DAMION ART ART Sample Site R Radial L Radial pH 7.28 L 7.33 L Bicarbonate Actual 34.0 H 33.8 H Total CO2 36 36 Base Excess 7 H 8 H O2 Saturation 86 L 89 L O2 % 50 50 ABG pCO2 72.7 H* 64.4 H ABG pO2 60 L 64 L Meño Test Positive Positive VBG pH 7.29 L VBG pO2 60 H VBG HCO3 32 H VBG Total CO2 34 H VBG O2 Sat (Calc) 87 H VBG Base Excess 6 H POC Mix VBG pCO2 Pt Tmp 67.1 H Respiration Rate 10 22 O2 Delivery Device BiPAP BiPAP Vent Mode BiLevel POC PEEP 8 Crit Call To/Read Back Yes Blood Gas Notified Whom jopperi Radiography Diagnostic Testing: Radiology Impression Chest X-Ray 03/02/23 14:08 IMPRESSION: Pulmonary findings appear worse. Electronically Signed: George Leiva MD at 15:24 EDT , Chest X-Ray 03/03/23 04:09 IMPRESSION: Resolving bilateral pneumonia. Electronically Signed: Patti Jensen MD at 5:42 EDT , Physical Exam Const alert and no apparent distress Constitutional Narrative: Sitting in bedside recliner. General Appearance: cooperative Nutritional Appearance: morbidly obese HEENT normocephalic and head/scalp atraumatic Eyes PERRL, EOMs intact bilaterally and conjunctivae normal Neck supple Neck Narrative: Large neck circumference with redundant soft tissue. General: trachea midline Chest inspection of chest normal Resp Auscultation: diminished lung sounds; Negative for rales, rhonchi or wheezes Cardio regular rate and regular rhythm GI normal to inspection, nondistended, normoactive bowel sounds Extremity General Extremity: Negative for clubbing Skin General Skin Exam: venous stasis and dermatitis Neuro CN's II-XII intact bilaterally, moves all extremities and no focal motor deficits Psych cooperative and affect normal Charges/Coding Visit Charges Inpatient E&M: 54187 Subs Hosp L2
[2023-03-05] MEDS: Ipratropium/Albuterol Sulfate 3 ML AMPUL.NEB INHALATION ×2 (07:33→11:03)
[2023-03-05] MEDS: Potassium Chloride Oral Tablet 20 MEQ 40 MEQ PO (08:53)
[2023-03-05] MEDS: Fenofibrate 145 MG Tablet PO (08:54)
[2023-03-05] MEDS: APIXABAN 5 MG TABLET PO (08:54)
[2023-03-05] MEDS: Furosemide 40 MG Tablet PO (08:54)
[2023-03-05] MEDS: Juven (unflavored) Packet 1 PACKET PO (08:54)
[2023-03-05] MEDS: dilTIAZem CD 120 MG Capsule PO (08:54)
[2023-03-05] MEDS: predniSONE 20 MG Tablet 40 MG PO (08:54)
[2023-03-05] MEDS: Insulin Glargine-YFGN 100 UNIT/ML Pen 105 UNIT SC (08:54)
[2023-03-05] MEDS: Lisinopril 10 MG Tablet PO (08:54)
[2023-03-05] MEDS: Nystatin Powder 15gm Bottle 1 APPLIC TOPICAL (08:57)
[2023-03-05] MEDS: 0.9% Saline Lock 10 ML Syringe IV (08:58)
[2023-03-05 09:10] LABS: Bedside Glucose 205 mg/dL (74-106)
--- NOTE | 2023-03-05 10:10 | CASEMGMT ---
Addendum entered by Ines Lopez 03/05/23 14:24: Pt requires increase in oxygen needs. Spoke with ICU nurse for testing. Addendum entered by Ines Lopez 03/05/23 12:27: Pt aware that [facility] will see her. She denies any further homegoing needs. Addendum entered by Ines Lopez 03/05/23 12:16: [facility] has accepted pt and is aware pt will dc today. Original Note: Received notification that pt is not current with [facility] any longer. Message sent to see if they would take pt back on services via [employer].
--- NOTE | 2023-03-05 11:07 | DS.PCM_ITS ---
Providers Date of Admission: 03/02/23 Date of Discharge: 03/05/23 Primary Care Physician: Dr. Tino Oreilly MD Consultations 03/02/23 16:38 Consult: House Fellow / Pulmonary Medicine Routine Consulting Provider: Pulmonary Medicine [facility] [place] Reason for Consult: resp failure. pneumonia EMERGENT Consult: No MD Notified: Yes Date Notified: 03/02/23 Time Notified: 16:34 Method of Notification: Verbal Consult: Onc/Wound/block splitter operator Routine Comment: Reason For Visit: RESPIRATORY FAILURE Diagnosis Discharge Diagnosis (1) Acute on chronic respiratory failure with hypoxia and hypercapnia: Status: Chronic Code(s): J96.21 - Acute and chronic respiratory failure with hypoxia; J96.22 - Acute and chronic respiratory failure with hypercapnia (2) Noncompliance with CPAP treatment: Status: Acute Code(s): Z91.199 - Patient's noncompliance with other medical treatment and regimen due to unspecified reason Plan #Acute on chronic hypoxic and hypercapnic respiratory failure * Thought to be multifactorial, due to pneumonia and obesity hypoventilation syndrome as well as probable CHF * On IV furosemide as well as IV Solu-Medrol. Started on IV ceftriaxone and azithromycin but this was switched to IV Vanco and Zosyn. * Breathing treatments with bronchodilators. Titrate oxygen to maintain saturation above 90%. * Critical care on board. * #Perianal abscess: * Had been treated for necrotizing fasciitis of the left groin in [facility] in December 2023 and had debridement done. She went back in January with pain in the right groin and had incision and drainage on the right side. Wound care on board. #Type 2 diabetes mellitus with hyperglycemia: Jardiance and metformin on hold. Insulin sliding scale. Accu-Cheks ACHS. #Lactic acidosis: Thought to be due to hypoxia. Stable #Heart failure preserved ejection fraction: Currently being diuresed with Lasix. #History of adrenal incidentaloma: Follow-up with PPI for further work-up as needed #LOGAN: On CPAP nightly. #GERD: On PPI #Hypertension: On lisinopril Nicotine dependence: Usually smokes and or vapes. Counseled about quitting. Nicotine patch as needed. #Super morbid obesity: BMI 63.1. Complicates acute care, expected recovery and prognosis. History of DVT: On Eliquis DVT prophylaxis: On Eliquis already for DVT treatment Disposition: anticipate dc over the next 24-48 hours Medications at Discharge Home Medications multivit-iron 18 mg-folic acid 400 mcg-calcium 500 mg-minerals tablet 1 ea PO DAILY supplement 03/26/17 omeprazole 40 mg capsule,delayed release 40 mg PO DAILY GERD 12/15/18 loratadine 10 mg tablet 10 mg PO DAILY PRN Allergies 03/01/20 apixaban 5 mg tablet 5 mg PO BID blood thinner 08/20/20 diltiazem HCl 120 mg capsule,extended release 24 hr 120 mg PO DAILY heart rate 08/20/20 lisinopril 10 mg tablet 10 mg PO DAILY blood pressure 03/26/21 metformin 500 mg tablet,extended release 24 hr 2,000 mg PO DAILY diabetes 03/26/21 metoprolol succinate 25 mg tablet,extended release 24 hr 25 mg PO DAILY blood pressure 03/26/21 atorvastatin 80 mg tablet 80 mg PO QHS Check with primary doctor 02/07/22 furosemide 40 mg tablet 40 mg PO BID diuretic 09/22/22 ammonium lactate 12 % lotion 1 applic topical TID 30 days #400 grams 09/24/22 insulin lispro 100 unit/mL subcutaneous pen (Humalog KwikPen (U-100) Insulin) 50 unit (0.5 mL) subcut TIDAC #0 mL 09/24/22 albuterol sulfate 2.5 mg/3 mL (0.083 %) solution for nebulization 2.5 mg inhalation Q4H PRN SOB 12/09/22 empagliflozin 10 mg tablet (Jardiance) 10 mg PO DAILY DM 12/09/22 fenofibrate nanocrystallized 145 mg tablet 145 mg PO DAILY CHOLESTEROL 12/09/22 furosemide 20 mg tablet 20 mg PO PRN PRN Edema 12/09/22 gabapentin 800 mg tablet 800 mg PO TID NERVE PAIN 12/09/22 insulin glargine U-300 conc 300 unit/mL (3 mL) subcutaneous pen (Toujeo Max U- 300 SoloStar) 150 unit subcut DAILY DM 12/09/22 nicotine (polacrilex) 2 mg buccal mini lozenge 2 mg PO PRN PRN Smoking Cessation 12/09/22 potassium chloride 20 mEq tablet,extended release 20 meq PO BID Check with primary doctor 12/19/22 insulin degludec 200 unit/mL (3 mL) subcutaneous pen (Tresiba FlexTouch U-200 insulin) 104 unit subcut BID DM 12/24/22 prednisone 20 mg tablet 40 mg PO BREAKFAST 5 days #10 tabs 03/05/23 Hospital Course Operations None Summary of Care Provided Minutes Spent on Discharge: 45 Hospital Course: Patient is a 47-year-old female with a past medical history as outlined was admitted through the ED on 03/02/2023 with a complaint of shortness of breath. On admission she was found to be hypoxic and hypercapnic with ABG showing triple acid-base disorder including severe respiratory acidosis, metabolic acidosis and acute metabolic alkalosis. She did have a history of severe obstructive sleep apnea and obesity hypoventilation syndrome and had not been compliant with her home BiPAP. On admission her chest x-ray showed bilateral pulmonary infiltrates and small pleural effusions. She was admitted and managed for acute on chronic hypoxic and hypercapnic respiratory failure which was multifactorial and thought to be due to pneumonia and obesity hypoventilation syndrome as well as probable CHF. He was placed on IV Solu-Medrol and furosemide and was started on IV antibiotics as well. His shortness of breath improved and she was weaned down on oxygen and felt much better. She was weaned down to her baseline oxygen. She remained stable and was discharged home on 03/05/2023. She was counseled to b e compliant with her BiPAP. 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 Patient seen and examined prior to discharge. She had no complaints and had an uneventful night. Review of systems otherwise negative. Labs and vitals reviewed. Home medication reviewed and reconciled. Physical Exam Const alert, oriented x3, no apparent distress and well nourished Constitutional Narrative: Super morbid obesity General Appearance: cooperative, comfortable and well kempt Orientation / Consciousness: awake Exam Limitations: no limitations HEENT normocephalic, head/scalp atraumatic, hearing grossly normal bilaterally, moist oral mucous membranes and oropharynx normal Mouth: oral and palatal mucosa normal Eyes PERRL and EOMs intact bilaterally Neck supple and no JVD Neck Narrative: Lymph Lymphatic: no lymphadenopathy noted and no lymphedema noted Resp Resp Narrative: diminished breath sounds bibasally, no wheezes or crackles. on 4L of oxygen by nasal canula, Cardio regular rate, regular rhythm, S1 normal heart sound, S2 normal heart sound and no murmurs Cardio Narrative: Regular. GI normal to inspection, nondistended, normoactive bowel sounds, soft to palpation, non-tender and non-distended GI Narrative: (Exam with female staff present) With a very large pannus. Vulvar wound appears beefy red, but no surrounding erythema. I did not appreciate any right sided wound Extremity normal capillary refill, no clubbing, cyanosis or edema and no calf tenderness Skin General Skin Exam: no breakdown Neuro oriented x3, CN's II-XII intact bilaterally, moves all extremities and no focal motor deficits Psych thought process normal and affect normal Appearance: appropriate Weight / BMI Weight Weight: 372 lb 2.244 oz Body Mass Index (BMI) 61.9 ABG / Lab / Microbiology Data Result Diagrams: 03/05/23 03:30 03/05/23 03:30 Laboratory: Laboratory Results - last 24 hr 03/04/23 11:22: POC Glucose 355 H 03/04/23 16:22: POC Glucose 441 H 03/04/23 22:17: POC Glucose 393 H 03/05/23 03:30: WBC 11.1 H, RBC 3.66 L, Hgb 9.4 L, Hct 32.3 L, MCV 88.3, MCH 25.7 L, MCHC 29.1 L, RDW Std Deviation 53.4 H, RDW Coeff of Darrion 16.5 H, Plt Count 266, MPV 9.8, Immature Gran % (Auto) 0.500, Neut % (Auto) 74.4 H, Lymph % (Auto) 19.1, Titus % (Auto) 5.6, Eos % (Auto) 0.1, Baso % (Auto) 0.3, Absolute Neuts (auto) 8.3 H, Absolute Lymphs (auto) 2.12, Nucleated RBC % 0.4 03/05/23 03:30: Sodium 133 L, Potassium 3.4 L, Chloride 90 L, Carbon Dioxide 39.0 H, Anion Gap 4 L, BUN 29 H, Creatinine 0.92, Estim Creat Clear Calc 69.49, Est GFR (MDRD) Af Amer 85, Est GFR (MDRD) Non-Af 70, BUN/Creatinine Ratio 31.5 H , Glucose 330 H, Calcium 9.0 03/05/23 06:03: POC Glucose 259 H 03/05/23 08:48: POC Glucose 205 H Microbiology: Microbiology 03/02/23 17:20 Wound - Leg, Right Gram Stain - Final 03/02/23 17:20 Wound - Leg, Right Wound Culture - Preliminary Proteus mirabilis Streptococcus group A Gram positive gil 03/02/23 17:20 Wound - Leg, Right Anaerobic Culture - Preliminary 03/02/23 18:10 Urine Catheter - Catheter Urine Culture - Final Culture exhibits no growth. 03/02/23 15:50 Blood Culture (Wb) - Arm Left Blood Culture - Preliminary No growth in 48 hours. 03/02/23 15:30 Blood Culture (Wb) - Anticubital Right Blood Culture - Preliminary No growth in 48 hours. 03/02/23 19:05 Mucosa - Nasopharyngeal Respiratory Panel (PCR) - Final 03/02/23 18:10 Urine Catheter - Catheter Legionella Antigen - Final 03/02/23 18:10 Urine Catheter - Catheter Streptococcus pneumoniae Antigen (M - Final D/C Instructions Discharge Diet: Low fat / Low cholesterol Weight Bearing Status: Weight bearing as tolerated Call your doctor if you observe: Fever of 101 or Higher, Shortness of breath, Dizziness, Swelling in the ankles, Chest pain, Increased palpitations (irregular heartbeat) and Calf discomfort Meaningful Use Info Meaningful Use Diagnoses (Choose all that apply): None applicable Discharge Plan Admission Admit Date/Time: 03/02/23 16:21 Primary Reason for Your Visit: hypoxia Attending Provider: Ling Neville Primary Care Provider: Tino Oreilly Consulting Providers: [place] Dumont ; Shad Sanders ; Fadi Box ; Jarrett Villalobos ; Nelly Hunter MASTER YACHT ; Faraz Lantigua Instructions Patient Instructions: ED Dyspnea Discharge Orders/Prescriptions Prescriptions: New prednisone 20 mg Tablet 40 mg PO BREAKFAST 5 Days Qty: 10 0RF Continued loratadine 10 mg tablet 10 mg PO DAILY PRN (Reason: Allergies) lisinopril 10 mg tablet 10 mg PO DAILY Label Comments: TAKE 1 TABLET BY MOUTH EVERY DAY metformin 500 mg tablet extended release 24 hr 2,000 mg PO DAILY metoprolol succinate 25 mg tablet extended release 24 hr 25 mg PO DAILY Label Comments: TAKE 1 TABLET BY MOUTH EVERY DAY atorvastatin 80 mg tablet 80 mg PO QHS [id number]-[id number]-calcium-mins 1 EACH tablet 1 ea PO DAILY Label Comments: vitamin omeprazole 40 MG capsule,delayed release(DR/EC) 40 mg PO DAILY diltiazem HCl 120 MG capsule 120 mg PO DAILY apixaban 5 MG tablet 5 mg PO BID furosemide 40 mg tablet 40 mg PO BID Label Comments: Take 1 tablet by mouth twice daily. insulin lispro [Humalog KwikPen Insulin] 100 unit/mL Insulin Pen 50 unit subcut TIDAC Qty: 0 0RF ammonium lactate 12 % Lotion 1 applic topical TID 30 Days Qty: 400 0RF Protocol: *Topical Application Instructions APPLICATION INSTRUCTIONS: apply to both legs and affected dry areas of the body albuterol sulfate 2.5 mg /3 mL (0.083 %) solution for nebulization 2.5 mg inhalation Q4H PRN (Reason: SOB) gabapentin 800 mg tablet 800 mg PO TID furosemide 20 mg tablet 20 mg PO PRN PRN (Reason: Edema) fenofibrate nanocrystallized 145 mg tablet 145 mg PO DAILY Jardiance 10 mg tablet 10 mg PO DAILY nicotine (polacrilex) 2 mg mini lozenge 2 mg PO PRN PRN (Reason: Smoking Cessation) Toujeo Max U-300 SoloStar 300 unit/mL (3 mL) insulin pen 150 unit SUBCUT DAILY potassium chloride 20 mEq tablet extended release 20 meq PO BID insulin degludec [Tresiba FlexTouch U-200] 200 unit/mL (3 mL) insulin pen 104 unit SUBCUT BID Label Comments: INJECT 100 UNITS SUBCUTANEOUSLY TWICE DAILY (this replaces levemir) Referrals / Follow Up: Tino Oreilly MD [Primary Care Provider] - 03/11/23 11:30 am () Shad Sanders DO [Med Staff - Active Staff] - 03/20/23 7:45 am () Disposition Disposition (needs filled in before D/C Order can be placed): Home Health Service Charges/Coding Visit Charges Inpatient E&M: 32939 Disch Hosp >30min
[2023-03-05 11:51] LABS: Bedside Glucose 361 mg/dL (74-106)
--- NOTE | 2023-03-05 11:52 | CASEMGMT ---
Social work SW received PC from [facility] Carolee Ross. Carolee requesting pt admit date and a discharge summary to be sent to when pt is discharged. SW asked about pt services and was informed pt only receives home delivered meals at this time. Pt is eligible for an aide but there are not available aides to provide this service at this time. [facility] ELVIN updated Josie to send d/c info to [facility]. ELVIN also updated [facility] Brandy Diallo that pt has HHC and will likely need resumed upon discharge. Claire Andersen, PER
--- NOTE | 2023-03-05 12:08 | CASEMGMT ---
Social Work SW faxed discharge summary and instructions to pt's leather case finisher Carolee at [facility]. JOSEFA Jacobs
--- NOTE | 2023-03-06 11:39 | CASEMGMT ---
Sent updated oxygen rx to [facility] via [facility] at this time.
== END 2023-03-05 15:06 | disposition home health service (06) | DRG 189 ==
LOC: ED 15:47 → ICU 03-03 07:23
PROVIDERS: Internal Medicine; Emergency Provider Emergency Medicine; PCP Family Medicine; Visit Provider Student in an Organized Health Care Education/Training Program
DX: J96.21 Acute and chronic respiratory failure with hypoxia (principal); J44.0 Chronic obstructive pulmonary disease with (acute) lower respiratory infection; I50.33 Acute on chronic diastolic (congestive) heart failure; I27.20 Pulmonary hypertension, unspecified; I11.0 Hypertensive heart disease with heart failure; E11.65 Type 2 diabetes mellitus with hyperglycemia; J96.22 Acute and chronic respiratory failure with hypercapnia; Z68.44 Body mass index [BMI] 60.0-69.9, adult; E66.2 Morbid (severe) obesity with alveolar hypoventilation; Z79.4 Long term (current) use of insulin; J18.9 Pneumonia, unspecified organism; N76.4 Abscess of vulva; Z99.81 Dependence on supplemental oxygen; E78.5 Hyperlipidemia, unspecified; I87.2 Venous insufficiency (chronic) (peripheral); K21.9 Gastro-esophageal reflux disease without esophagitis; F17.210 Nicotine dependence, cigarettes, uncomplicated; F17.290 Nicotine dependence, other tobacco product, uncomplicated; Z91.199 Patient's noncompliance with other medical treatment and regimen due to unspecified reason; Z79.01 Long term (current) use of anticoagulants; Z79.52 Long term (current) use of systemic steroids; Z79.84 Long term (current) use of oral hypoglycemic drugs; Z79.899 Other long term (current) drug therapy
CPT/HCPCS: 36600; 71045; 80048; 80053; 80202; 81001; 82803; 82962; 83605; 83880; 84484; 85025; 87040; 87070; 87075; 87077; 87086; 87186; 87205; 87449; 87633; 87635; 93005; 94002; 94003; 94640; 94668; 94762; 96365; 96366; 96367; 96368; 96375; 96376; 97162; 97166; 97802; 99221; 99252; 99285; 99406; J7040; J7050; A4216; G0378; G0463; J1940; U0003; U0005

== ENCOUNTER 2023-04-23 18:01 | Observation (INO) | payer MEDICARE, MEDICAID, SELFPAY ==
[2023-04-23] VITALS (9 sets, daily range): BP systolic 103–134; BP diastolic 3–72; PULSE 86–96; RESP 18–22; TEMP 36.4–36.8; O2SAT 89–94; BMI 69.7; BMI 65.7
--- NOTE | 2023-04-23 18:21 | ED.RN ---
PT'S O2 SATS DECREASE TO 89% OF 5L NC. RESPIRATORY NOTIFIED AT THIS TIME.
[2023-04-23] MEDS: Ipratropium/Albuterol Sulfate 3 ML AMPUL.NEB INHALATION (18:35)
--- NOTE | 2023-04-23 18:36 | EKG12_ITS ---
Test Reason : DYSRHYTHMIA Blood Pressure : / mmHG Vent. Rate : 092 BPM Atrial Rate : 092 BPM P-R Int : 136 ms QRS Dur : 086 ms QT Int : 380 ms P-R-T Axes : 051 -06 065 degrees QTc Int : 469 ms Normal sinus rhythm Normal ECG Confirmed by HASMUKH LORA, LILIANA ([id number]), supervising editor news reel DANIELE MALDONADO ([id number]) on 04/24/2023 9:09:28 AM Referred By: BILLY Confirmed By:LILIANA NOE MD
--- NOTE | 2023-04-23 18:37 | EDS_ITS ---
HPI History of Present Illness Chief Complaint: Shortness of Breath Informant: patient Narrative Narrative: Patient presents with worsening of her baseline dyspnea. She states she just wanted to get checked out. She states for about 4 to 5 days she has been coughing more. She has been bringing up some brennan sputum but no blood. She has been wheezing more. She has been eating and drinking fine. Urinating moving bowels fine. She has a chronic wound at the left groin but she states that is healing slowly and has not giving her problems now. She does have a history of COPD is on 4 L of oxygen chronically. She also has history of prior clots and is on Eliquis and is taking it twice a day as prescribed. She does not have any known sick contacts. She has felt warm but no actual measured fever. [facility] Medical History Abscess Abscess of vulva Acute on chronic respiratory failure with hypoxia and hypercapnia KERRY (acute kidney injury) Anxiety BiPAP (biphasic positive airway pressure) dependence BMI 60.0-69.9, adult Chronic diastolic (congestive) heart failure Chronic respiratory failure with hypoxia Congestive heart failure Contusion of knee, right COPD (chronic obstructive pulmonary disease) Depression Diabetes Dyspnea on exertion Essential hypertension GERD (gastroesophageal reflux disease) Hidradenitis History of left heart catheterization (LHC) (~01/05/19) History of MRSA infection Hyperglycemia due to type 2 diabetes mellitus Hyperlipidemia Hypertension Morbid obesity Necrotizing soft tissue infection Non-healing open wound of left groin Noncompliance with CPAP treatment NSTEMI (non-ST elevated myocardial infarction) 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 Old myocardial infarction On home oxygen therapy Open wound of vulva with complication Opiate overdose Perianal abscess Pulmonary embolism Respiratory failure with hypoxia Restrictive lung disease secondary to obesity Sleep apnea Smoker Soft tissue abscess of inguinal region Tobacco abuse Type 2 diabetes mellitus Type 2 diabetes mellitus with hyperglycemia Venous stasis dermatitis of both lower extremities Home Medications multivit-iron 18 mg-folic acid 400 mcg-calcium 500 mg-minerals tablet 1 ea PO DAILY supplement 03/26/17 [History Last Taken 12/09/22] omeprazole 40 mg capsule,delayed release 40 mg PO DAILY GERD 12/15/18 [History Last Taken 12/09/22] loratadine 10 mg tablet 10 mg PO DAILY PRN Allergies 03/01/20 [History Last Taken 12/09/22] apixaban 5 mg tablet 5 mg PO BID blood thinner 08/20/20 [History Last Taken 12/09/22] diltiazem HCl 120 mg capsule,extended release 24 hr 120 mg PO DAILY heart rate 08/20/20 [History Last Taken 12/09/22] lisinopril 10 mg tablet 10 mg PO DAILY blood pressure 03/26/21 [History Last Taken 12/09/22] metformin 500 mg tablet,extended release 24 hr 2,000 mg PO DAILY diabetes 03/26/21 [History Last Taken 01/15/22] metoprolol succinate 25 mg tablet,extended release 24 hr 25 mg PO DAILY blood pressure 03/26/21 [History Last Taken 12/09/22] atorvastatin 80 mg tablet 80 mg PO QHS Check with primary doctor 02/07/22 [History Last Taken 12/09/22] furosemide 40 mg tablet 40 mg PO BID diuretic 09/22/22 [History Last Taken 12/09/22] insulin lispro 100 unit/mL subcutaneous pen (Humalog KwikPen (U-100) Insulin) 50 unit (0.5 mL) subcut TIDAC #0 mL 09/24/22 [Rx Last Taken 12/09/22] albuterol sulfate 2.5 mg/3 mL (0.083 %) solution for nebulization 2.5 mg inhalation Q4H PRN SOB 12/09/22 [History Last Taken 12/08/22] empagliflozin 10 mg tablet (Jardiance) 10 mg PO DAILY DM 12/09/22 [History Last Taken 12/09/22] fenofibrate nanocrystallized 145 mg tablet 145 mg PO DAILY CHOLESTEROL 12/09/22 [History Last Taken 12/09/22] furosemide 20 mg tablet 20 mg PO PRN PRN Edema 12/09/22 [History Last Taken Unknown] gabapentin 800 mg tablet 800 mg PO TID NERVE PAIN 12/09/22 [History Last Taken 12/09/22] potassium chloride 20 mEq tablet,extended release 20 meq PO BID Check with primary doctor 12/19/22 [History Last Taken Unknown] insulin degludec 200 unit/mL (3 mL) subcutaneous pen (Tresiba FlexTouch U-200 insulin) 104 unit subcut BID DM 12/24/22 [History Last Taken Unknown] Allergy/AdvReac Type Severity Reaction Status Date / Time cyclobenzaprine HCl Allergy Hives Verified 04/23/23 18:01 [From Flexeril] venlafaxine [From Effexor] AdvReac Severe unknown Verified 04/23/23 18:01 Family History Father CVA (cerebral vascular accident) Heart disease Diabetes Mother Thyroid disorder Surgical History H/O arthroscopic knee surgery History of delivery History of cholecystectomy Social History household members: none Smoking Status: Current some day smoker tobacco type: cigarettes how long ago did patient quit smokin PPD smoker second hand exposure: Yes alcohol intake: never substance use type: does not use caffeine: Yes Type: carbonated beverages Number of servings: 1 and coffee Number of servings: 1 ROS ROS ED ROS Narrative A complete review of systems was performed and is negative except as documented in the history of present illness. Some specific details below. Constitutional: No recent fevers measured but she has had the symptoms of fever and mild chills. No myalgias. EYE: No discharge, visual complaints, or pain. ENT: No difficulty swallowing. No swelling. No pain. No reflux symptoms. CV: Denies chest pain or palpitations Respiratory: See history of present illness. Cough with a change in sputum. Some more wheezing. GI: No abdominal pain. No nausea vomiting diarrhea. No blood in stool. : No frequency dysuria or hematuria. Musculoskeletal: No recent trauma. No pains. She does have chronic bilateral lower extremity swelling. She does report a history of some mild CHF and is on Lasix that she takes more as a as needed with increasing edema. Skin: No rash. Nondiaphoretic. Neuro: No weakness or numbness. She does get more short of breath when she walks around than normal. Endocrine: No polyuria or polydipsia. EXAM Physical Exam Narrative Exam Narrative: CONSTITUTIONAL: Patient is nontoxic in appearance. Patient is getting a breathing treatment now. She actually carries on normal conversation. Despite her overall level of health and her complaints she is actually nontoxic. HEENT: No notable trauma. Mucous membranes moist. No sinus tenderness. No indication of pain with swallowing. EYES: No conjunctival injection. No proptosis. NECK:No JVD able to be seen.. No stridor. CARDIOVASCULAR: Regular rate. Regular rhythm. No notable murmur. No JVD. Monitor appears to show a sinus rhythm with a rate of about 95. I see no notable ectopy. RESPIRATORY: Patient is actually in no respiratory distress. She carries on normal conversation without pausing. But she does have diffuse expiratory wheezing on exam. I hear no definitive rhonchi. Exam is somewhat difficult due to body habitus GASTROINTESTINAL: Not distended. Bowel sounds are normal. No tenderness. No guarding. No rebound. No palpable mass. No bruit is heard. She does have some mild erythema of the lower abdominal wall but it does not look cellulitic. She has a little bit of yeast involvement in the folds when the pannus is lifted up. GENITOURINARY: No tenderness over the bladder. No CVA tenderness. She has dressings on the left inguinal area abscess with no drainage visible. She states is overall doing much better. MUSCULOSKELETAL: Atraumatic. Bilateral +1 peripheral edema. Chronic stasis changes distal shins. No asymmetry. NEUROLOGICAL: Patient is alert and appropriate. No focal deficit noted. She is not at all sleepy or lethargic. No indication of CO2 retention. SKIN: No noted rashes. No diaphoresis. PSYCHIATRIC: Patient is calm. Mood is appropriate. Const Vital Signs: 04/23/23 18:02 04/23/23 18:06 04/23/23 18:05 Temperature 97.6 F L 97.6 F L Temperature Source Temporal Temporal Pulse Rate 96 94 Respiratory Rate 20 H 20 H Respiratory Effort Short of Breath Respiratory Depth Normal Respiratory Pattern Normal Blood Pressure 110/56 L 110/56 L Blood Pressure Mean 74 74 Pulse Ox 93 93 Oxygen Delivery Method Nasal Cannula Nasal Cannula Nasal Cannula Oxygen Flow Rate (L/min) 4 4 4 04/23/23 18:35 04/23/23 18:19 04/23/23 20:19 Temperature Temperature Source Pulse Rate 94 91 86 Respiratory Rate 20 H 18 20 H Respiratory Effort Respiratory Depth Respiratory Pattern Normal Blood Pressure 103/3 L 116/59 L Blood Pressure Mean 36 78 Pulse Ox 89 90 Oxygen Delivery Method Nasal Cannula Nasal Cannula Oxygen Flow Rate (L/min) 6 6 MDM MDM MDM Narrative Medical decision making narrative: Patient is rechecked. She is moving air better but she still has wheezes. We will give her another breathing treatment. She does have COPD. I am not seeing signs of infection. She has a mild elevation of lactate. But this may also due to hypoxia. When I went in the room. She was sleeping. Her saturations were 87% on 6 L. When I woke her up she came up to 90 to 91% on 6 L. With deep breaths through her nose she came up to 92%. She is awake and alert. She does use BiPAP at night when she sleeps but she is not sure what the settings are. CBC shows mild elevation of the white count which is nonspecific. She is anemic but her last hemoglobin was just 9.4. She does not report any bleeding issues. Platelets are normal. Electrolytes show elevated bicarb at 36 but this is really chronic for her. Renal function is preserved. Glucose is a bit up at 256. Troponin is negative at 24. BNP is negative at 22.8. Lactate is 2.3. But this is a mild elevation I think is likely due to hypoxia. I am not seeing signs of acute infiltrate. She is not having fevers. I do not want to give her a large volume of fluids as she does have a history of CH and this could worsen her rather than help her since her blood pressure is fine. But with her still wheezing, dropping saturations on oxygen higher than her baseline, overall general illness with morbid obesity and multiple medical problems, I think management in the hospital was appropriate. I do not think she would do well at home. She has been given steroids off so. I will discuss the case with the hospitalist. Lab Data Attestation: I reviewed the patient's lab results. Labs: Laboratory Results - last 24 hr 04/23/23 04/23/23 04/23/23 18:35 18:54 18:54 WBC 12.7 H RBC 3.66 L Hgb 9.0 L Hct 32.7 L MCV 89.3 MCH 24.6 L MCHC 27.5 L RDW Std Deviation 55.5 H RDW Coeff of Darrion 17.1 H Plt Count 277 MPV 9.4 Immature Gran % (Auto) 1.100 H Neut % (Auto) 72.3 H Lymph % (Auto) 20.4 [place] % (Auto) 3.5 Eos % (Auto) 2.0 Baso % (Auto) 0.7 Absolute Neuts (auto) 9.2 H Absolute Lymphs (auto) 2.60 Nucleated RBC % 0.8 Sodium 137 Potassium 4.0 Chloride 96 L Carbon Dioxide 36.0 H Anion Gap 5 BUN 18 Creatinine 1.00 Estim Creat Clear Calc 63.93 Est GFR (MDRD) Af Amer 77 Est GFR (MDRD) Non-Af 64 BUN/Creatinine Ratio 18.0 Glucose 256 H Lactic Acid Calcium 8.0 L Troponin I High Sens 24 B-Natriuretic Peptide 22.8 04/23/23 18:54 WBC RBC Hgb Hct MCV MCH MCHC RDW Std Deviation RDW Coeff of Darrion Plt Count MPV Immature Gran % (Auto) Neut % (Auto) Lymph % (Auto) [place] % (Auto) Eos % (Auto) Baso % (Auto) Absolute Neuts (auto) Absolute Lymphs (auto) Nucleated RBC % Sodium Potassium Chloride Carbon Dioxide Anion Gap BUN Creatinine Estim Creat Clear Calc Est GFR (MDRD) Af Amer Est GFR (MDRD) Non-Af BUN/Creatinine Ratio Glucose Lactic Acid 2.3 H* Calcium Troponin I High Sens B-Natriuretic Peptide Radiography Diagnostic Testing: Clinical Impression(s) from Imaging Studies Chest X-Ray 04/23/23 19:00 IMPRESSION: Findings suggest CHF exacerbation. Electronically Signed: Leonides Lakhani MD at 19:22 EDT , EKG Initial EKG: Comments: My independent interpretation the patient's EKG done for dyspnea shows a normal sinus rhythm with a rate of 92. No ectopy. No acute ST elevation or depression. [place] interval, QRS duration and QTc are normal. Management Discussion w/another healthcare provider: Hospitalist Discharge Plan Triage Chief Complaint: Shortness of Breath ED Provider: Deejay Ornelas Dx/Rx/DC Orders Clinical Impression: COPD with acute exacerbation, Morbid obesity, Hypoxia, Elevated lactic acid level, Anemia, History of diabetes mellitus Prescriptions: No Action loratadine 10 mg tablet 10 mg PO DAILY PRN (Reason: Allergies) lisinopril 10 mg tablet 10 mg PO DAILY Label Comments: TAKE 1 TABLET BY MOUTH EVERY DAY metformin 500 mg tablet extended release 24 hr 2,000 mg PO DAILY metoprolol succinate 25 mg tablet extended release 24 hr 25 mg PO DAILY Label Comments: TAKE 1 TABLET BY MOUTH EVERY DAY atorvastatin 80 mg tablet 80 mg PO QHS [id number] 1 EACH tablet 1 ea PO DAILY Label Comments: vitamin omeprazole 40 MG capsule,delayed release(DR/EC) 40 mg PO DAILY diltiazem HCl 120 MG capsule 120 mg PO DAILY apixaban 5 MG tablet 5 mg PO BID furosemide 40 mg tablet 40 mg PO BID Label Comments: Take 1 tablet by mouth twice daily. insulin lispro [Humalog KwikPen Insulin] 100 unit/mL Insulin Pen 50 unit subcut TIDAC Qty: 0 0RF albuterol sulfate 2.5 mg /3 mL (0.083 %) solution for nebulization 2.5 mg inhalation Q4H PRN (Reason: SOB) gabapentin 800 mg tablet 800 mg PO TID furosemide 20 mg tablet 20 mg PO PRN PRN (Reason: Edema) fenofibrate nanocrystallized 145 mg tablet 145 mg PO DAILY Jardiance 10 mg tablet 10 mg PO DAILY potassium chloride 20 mEq tablet extended release 20 meq PO BID insulin degludec [Tresiba FlexTouch U-200] 200 unit/mL (3 mL) insulin pen 104 unit SUBCUT BID Label Comments: INJECT 100 UNITS SUBCUTANEOUSLY TWICE DAILY (this replaces levemir) Primary Care Provider: Tino Oreilly Referrals: Tino Oreilly MD [Primary Care Provider] - Disposition Disposition: Acute Care Hospital [facility]
--- NOTE | 2023-04-23 19:00 | RAD_ITS ---
INDICATION: Cough EXAMINATION/TECHNIQUE: X-RAY - XR Chest 1 View COMPARISON: 03/03/2023 FINDINGS: LINES/DEVICES: None. LUNGS: Mild bilateral pulmonary edema. No focal consolidation or large pleural effusion. MEDIASTINUM AND CARDIOVASCULAR STRUCTURES: Cardiac silhouette is mildly enlarged. Central airways and mediastinal contour are unremarkable. RAD/Chest 1 View (Portable) IMPRESSION: Findings suggest CHF exacerbation. Electronically Signed: Leonides Lakhani MD at 19:22 EDT ,
[2023-04-23] MEDS: MethylPREDNISolone 125 MG/2 ML Vial IV (19:15)
[2023-04-23 19:25] LABS: Absolute Neutrophil Count 9.2 X10^3/uL (2.0-7.7); Basophil# 0.09 X10^3/uL; Basophil% 0.7 % (0-1); Eosinophil# 0.25 X10^3/uL; Hematocrit 32.7 % (37-47); Lymphocyte % 20.4 % (19-41); Mean Corp Hgb Conc 27.5 g/dL (32-36); Mean Corpuscular Hgb 24.6 pg (27.0-32.0); Mean Corpuscular Volume 89.3 fL (81-99); Mean Platelet Vol. 9.4 fl (6.2-12.0); Monocyte# 0.45 X10^3/uL; Monocyte% 3.5 % (0-10); NRBC Flagged by Analyzer 0.8 % (0-5); Neutrophil # 9.21 X10^3/uL (2.7-7.7); Neutrophil % 72.3 % (47-70); Platelet Count 277 K/mm3 (150-450); RBC Distribution Width CV 17.1 % (11.6-14.6); RBC Distribution Width SD 55.5 fl (35.1-43.9); Red Blood Count 3.66 M/mm3 (4.2-5.4); White Blood Count 12.7 K/mm3 (4.4-11.0)
[2023-04-23 19:40] LABS: BNP,B-Type NATRIURETIC PEPTIDE 22.8 pg/mL (0-100)
[2023-04-23 19:43] LABS: Anion Gap 5 (5-15); BUN 18 mg/dL (7-18); Chloride 96 mmol/L (98-107); EST Glomerular Filtration Rate 64 mL/min (>60); Est Glom Filt Rate - Afr Amer 77 mL/min (>60); Estimated Creatinine Clearance 63.93 ml/min; Glucose 256 mg/dL (74-106); Sodium Level 137 mmol/L (136-145); Troponin-I HS 24 pg/mL (3.0-54.0)
[2023-04-23 19:45] LABS: Lactic Acid 2.3 mmol/L (0.4-1.9)
[2023-04-23] MEDS: Albuterol 2.5 MG/3 ML VIAL.NEB. INHALATION (21:26)
--- NOTE | 2023-04-23 21:38 | HP.PCM.HOS_ITS ---
[facility] - General General Date of Admission: 04/23/23 Date of Service: 04/23/23 Chief Complaint: Shortness of breath HPI Narrative MACAIRO OVERTON, is a 47 F with a significant history of morbid obesity; obstructive sleep apnea on home CPAP/BiPAP; hypertension; and diabetes mellitus who presents to the emergency department with 1 week history of persistent shortness of breath. She reports that her shortness of breath is with exertion. Patient has noticed increasing frequency of a cough. Cough is productive for yellow thick sputum. She does not know what the thickness of her sputum has increased or not. Emergency doctor reported that on presentation patient's lungs were tight and she was wheezing. Of note patient was noted to have hypoxia requiring oxygen supplementation of 6 L. On 6L patient was satting in the higher 80s to 90%. Of note at home at rest patient uses 4 L of nasal cannula oxygen and with exertion she used 5 L of nasal cannula oxygen. At home patient uses BiPAP to sleep. She reports orthopnea. She denies paroxysmal nocturnal dyspnea. Patient denies fever or chills. Patient has a wound from left groin abscess which she states is healing well. [facility] Medical History (Updated 04/24/23 @ 06:[address] Chris Gill MD) Abscess Abscess of vulva Acute on chronic respiratory failure with hypoxia and hypercapnia KERRY (acute kidney injury) Anxiety BiPAP (biphasic positive airway pressure) dependence BMI 60.0-69.9, adult Chronic diastolic (congestive) heart failure Chronic respiratory failure with hypoxia Congestive heart failure Contusion of knee, right COPD (chronic obstructive pulmonary disease) Depression Diabetes Dyspnea on exertion Essential hypertension GERD (gastroesophageal reflux disease) Hidradenitis History of left heart catheterization (LHC) (~01/05/19) History of MRSA infection Hyperglycemia due to type 2 diabetes mellitus Hyperlipidemia Hypertension Morbid obesity Necrotizing soft tissue infection Non-healing open wound of left groin Noncompliance with CPAP treatment NSTEMI (non-ST elevated myocardial infarction) 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 Old myocardial infarction On home oxygen therapy Open wound of vulva with complication Opiate overdose Perianal abscess Pulmonary embolism Respiratory failure with hypoxia Restrictive lung disease secondary to obesity Sleep apnea Smoker Soft tissue abscess of inguinal region Tobacco abuse Type 2 diabetes mellitus Type 2 diabetes mellitus with hyperglycemia Venous stasis dermatitis of both lower extremities Home Medications multivit-iron 18 mg-folic acid 400 mcg-calcium 500 mg-minerals tablet 1 ea PO DAILY supplement 03/26/17 [History Last Taken 04/23/23] omeprazole 40 mg capsule,delayed release 40 mg PO DAILY GERD 12/15/18 [History Last Taken 04/23/23] loratadine 10 mg tablet 10 mg PO DAILY PRN Allergies 03/01/20 [History Last Taken 12/09/22] apixaban 5 mg tablet 5 mg PO BID blood thinner 08/20/20 [History Last Taken 04/23/23] diltiazem HCl 120 mg capsule,extended release 24 hr 120 mg PO DAILY heart rate 08/20/20 [History Last Taken 04/23/23] lisinopril 10 mg tablet 10 mg PO DAILY blood pressure 03/26/21 [History Last T aken 04/23/23] metformin 500 mg tablet,extended release 24 hr 2,000 mg PO DAILY diabetes 03/26/21 [History Last Taken 04/23/23] metoprolol succinate 25 mg tablet,extended release 24 hr 25 mg PO DAILY blood pressure 03/26/21 [History Last Taken 04/23/23] atorvastatin 80 mg tablet 80 mg PO QHS cholesterol 02/07/22 [History Last Taken 04/22/23] furosemide 40 mg tablet 40 mg PO BID diuretic 09/22/22 [History Last Taken 04/23/23] insulin lispro 100 unit/mL subcutaneous pen (Humalog KwikPen (U-100) Insulin) 50 unit (0.5 mL) subcut TIDAC #0 mL 09/24/22 [Rx Last Taken 04/23/23] albuterol sulfate 2.5 mg/3 mL (0.083 %) solution for nebulization 2.5 mg inhalation Q4H PRN SOB 12/09/22 [History Last Taken 12/08/22] empagliflozin 10 mg tablet (Jardiance) 10 mg PO DAILY DM 12/09/22 [History Last Taken 04/23/23] fenofibrate nanocrystallized 145 mg tablet 145 mg PO DAILY CHOLESTEROL 12/09/22 [History Last Taken 04/23/23] furosemide 20 mg tablet 20 mg PO PRN PRN Edema 12/09/22 [History Last Taken Unknown] gabapentin 800 mg tablet 800 mg PO TID NERVE PAIN 12/09/22 [History Last Taken 04/23/23] potassium chloride 20 mEq tablet,extended release 20 meq PO BID supplement 12/19/22 [History Last Taken 04/23/23] insulin degludec 200 unit/mL (3 mL) subcutaneous pen (Tresiba FlexTouch U-200 insulin) 104 unit subcut BID DM 12/24/22 [History Last Taken 04/23/23] Allergy/AdvReac Type Severity Reaction Status Date / Time cyclobenzaprine HCl Allergy Hives Verified 04/23/23 18:01 [From Flexeril] venlafaxine [From Effexor] AdvReac Severe unknown Verified 04/23/23 18:01 Family History Father CVA (cerebral vascular accident) Heart disease Diabetes Mother Thyroid disorder Surgical History H/O arthroscopic knee surgery History of delivery History of cholecystectomy Social History household members: none Smoking Status: Current every day smoker tobacco type: cigarettes how long ago did patient quit smokin PPD smoker second hand exposure: Yes alcohol intake: never substance use type: does not use caffeine: Yes Type: carbonated beverages Number of servings: 1 and coffee Number of servings: 1 ROS ROS Narrative Pertinent positives and pertinent negatives as noted in HPI. All other systems were reviewed and are negative Vital Signs Vital Signs Vital Signs: 04/23/23 18:02 04/23/23 18:06 04/23/23 18:05 Temperature 97.6 F L 97.6 F L Temperature Source Temporal Temporal Pulse Rate 96 94 Respiratory Rate 20 H 20 H Respiratory Effort Short of Breath Respiratory Depth Normal Respiratory Pattern Normal Blood Pressure 110/56 L 110/56 L Blood Pressure Mean 74 74 Pulse Ox 93 93 Oxygen Delivery Method Nasal Cannula Nasal Cannula Nasal Cannula Oxygen Flow Rate (L/min) 4 4 4 04/23/23 18:35 04/23/23 18:19 04/23/23 20:19 Temperature Temperature Source Pulse Rate 94 91 86 Respiratory Rate 20 H 18 20 H Respiratory Effort Respiratory Depth Respiratory Pattern Normal Blood Pressure 103/3 L 116/59 L Blood Pressure Mean 36 78 Pulse Ox 89 90 Oxygen Delivery Method Nasal Cannula Nasal Cannula Oxygen Flow Rate (L/min) 6 6 Weight Weight: 190.3 kg Body Mass Index (BMI) 69.7 Physical Exam Narrative Physical exam: General: Morbidly obese Head: Normocephalic, atraumatic, no tenderness Eyes: Vision is grossly intact. EOMI ENT, no trauma, moist mucous membranes, no rhinorrhea Neck: Nontender, No thyromegaly. CVS: Regular rate and rhythm. S1-S2 present. No murmur, gallop or rub. Respiratory : Rhonchi, chest wall nontender Abdomen: Soft, nontender, nondistended, normal bowel sounds, no masses : Left groin wound with brennan-yellowish drainage. Back: Nontender, no CVA tenderness, no midline spinal tenderness, deformities, step-offs Extremities: Nontender full range of motion, no trauma Skin: Normal color, no trauma, abrasions Neuro: Alert, oriented, cranial nerves II through XII grossly intact. Psychiatry: Normal mood. Normal affect. Not depressed. Not anxious. Results Lab / Micro Data Result Diagrams: 04/24/23 03:20 04/24/23 03:20 Labs: Laboratory Results - last 24 hr 04/23/23 18:35: WBC 12.7 H, RBC 3.66 L, Hgb 9.0 L, Hct 32.7 L, MCV 89.3, MCH 24.6 L, MCHC 27.5 L, RDW Std Deviation 55.5 H, RDW Coeff of Darrion 17.1 H, Plt Count 277, MPV 9.4, Immature Gran % (Auto) 1.100 H, Neut % (Auto) 72.3 H, Lymph % (Auto) 20.4, [place] % (Auto) 3.5, Eos % (Auto) 2.0, Baso % (Auto) 0.7, Absolute Neuts (auto) 9.2 H, Absolute Lymphs (auto) 2.60, Nucleated RBC % 0.8 04/23/23 18:54: Sodium 137, Potassium 4.0, Chloride 96 L, Carbon Dioxide 36.0 H, Anion Gap 5, BUN 18, Creatinine 1.00, Estim Creat Clear Calc 63.93, Est GFR (MDRD) Af Amer 77, Est GFR (MDRD) Non-Af 64, BUN/Creatinine Ratio 18.0, Glucose 256 H, Calcium 8.0 L, Troponin I High Sens 24 04/23/23 18:54: B-Natriuretic Peptide 22.8 04/23/23 18:54: Lactic Acid 2.3 H* Micro: Microbiology 04/23/23 18:54 Nasal Secretion SARS-CoV-2 & FLU Antigen (Rapid) - Final Radiology Impression Chest X-Ray 04/23/23 19:00 IMPRESSION: Findings suggest CHF exacerbation. Electronically Signed: Leonides Lakhani MD at 19:22 EDT , Assessment & Plan Assessment/Plan (1) COPD with acute exacerbation: (2) Morbid obesity: (3) Essential hypertension: PLAN: Plan COPD with acute exacerbation/ hypoxia Per radiologist patient has mild bilateral pulm edema no focal consolidation or large pleural effusion. Cardiac silhouette is mildly enlarged. Central airways are mediastinal contours are unremarkable. Chest x-ray was independently interpreted. There appears to be some opacities. Scheduled DuoNeb Albuterol as needed Solu-Medrol ordered. Oxygen as needed, titrate as needed Monitor BMP and CBC Lactic acidosis Likely secondary to hypoxia, trend. Diabetes mellitus Blood glucose is not within goal. With steroids anticipate her blood glucose requirements will escalate. Home basal insulin and Jardiance continued. Accu- Chek with correction scale insulin ordered. Hold home metformin. Acute Exacerbation of heart failure with preserved ejection fraction Place on monitored bed Weight on admission to the floor; and then daily Strict I&O's BNP 22.8 Escalate home Lasix 40 mg p.o. twice daily to Lasix 40 mg IV twice daily. Echocardiogram on 02/23/2019: Estimated ejection fraction 65%. Evidence of diastolic function. Right ventricle systolic pressure was 38 mmHg. Transthoracic echocardiogram to evaluate left ventricular wall motion and systolic function. Monitor electrolytes and renal functions Fluid restriction of 1500 mls daily Diabetic and cardiac diet ordered. Left groin wound Dry dressing as necessary. Hypertension Stable. Home blood pressure meds continued. Trend BP Morbid Obesity: BMI: 65.8 kg/m?. Complicates care. Lifestyle modification recommended. DVT prophylaxis not indicated patient is on Eliquis adequate has been continued. Charges/Coding Visit Charges Inpatient E&M: 37362 Init Hosp L3
--- NOTE | 2023-04-23 21:41 | CPS ---
[2126] x1 Albuterol given to pt. while in ER. Pre-HR = 85, RR = 22 with diminished breath sounds and scattered wheezes. Post-HR = 87, RR = 20 with clearer breath sounds. Scattered expiratory wheezes through out lung fish.
[2023-04-23 23:19] LABS: Reflex Lactate? Y
[2023-04-24] VITALS (17 sets, daily range): BP systolic 117–128; BP diastolic 53–63; PULSE 57–93; RESP 12–24; TEMP 36.4–36.6; O2SAT 89–98; BMI 66.4
[2023-04-24] MEDS: Furosemide 40 MG Tablet PO ×3 (00:27→21:13)
[2023-04-24] MEDS: Gabapentin 800 MG Tablet PO ×4 (00:27→21:13)
[2023-04-24] MEDS: Atorvastatin Calcium 80 MG Tablet PO ×2 (00:27→21:13)
[2023-04-24] MEDS: APIXABAN 5 MG TABLET PO ×3 (00:27→21:17)
[2023-04-24] MEDS: guaiFENesin 1,200 MG Tablet 1200 MG PO ×3 (00:27→21:13)
[2023-04-24] MEDS: Insulin Lispro 100 UNIT/ML INSULN.PEN SC ×5 (00:28→21:14)
[2023-04-24] MEDS: Insulin Glargine-YFGN 100 UNIT/ML Pen 104 UNIT SC (00:31)
[2023-04-24 00:46] LABS: Lactic Acid 2.1 mmol/L (0.4-1.9)
[2023-04-24 04:11] LABS: Absolute Lymphocyte Count 1.01 X10^3/uL (0.83-4.51); Absolute Neutrophil Count 9.8 X10^3/uL (2.0-7.7); Basophil# 0.07 X10^3/uL; Basophil% 0.6 % (0-1); Eosinophil# 0.03 X10^3/uL; Eosinophils% 0.3 % (0-5); Hematocrit 35.6 % (37-47); Hemoglobin 9.6 g/dL (12.0-15.0); Lymphocyte # 1.01 X10^3/ul (0.83-4.51); Lymphocyte % 9.1 % (19-41); Mean Corpuscular Hgb 24.6 pg (27.0-32.0); Mean Platelet Vol. 9.7 fl (6.2-12.0); Monocyte# 0.08 X10^3/uL; Monocyte% 0.7 % (0-10); NRBC Flagged by Analyzer 0.4 % (0-5); Neutrophil # 9.77 X10^3/uL (2.7-7.7); Neutrophil % 87.9 % (47-70); Platelet Count 281 K/mm3 (150-450); RBC Distribution Width CV 17.1 % (11.6-14.6); RBC Distribution Width SD 56.8 fl (35.1-43.9); Red Blood Count 3.91 M/mm3 (4.2-5.4); White Blood Count 11.1 K/mm3 (4.4-11.0)
[2023-04-24 05:21] LABS: Bedside Glucose 350 mg/dL (74-106)
[2023-04-24 05:23] LABS: Anion Gap 6 (5-15); BUN 22 mg/dL (7-18); BUN/Creat Ratio 18.3 RATIO (10-20); Calcium,Total 7.8 mg/dL (8.5-10.1); Chloride 97 mmol/L (98-107); EST Glomerular Filtration Rate 51 mL/min (>60); Est Glom Filt Rate - Afr Amer 62 mL/min (>60); Estimated Creatinine Clearance 53.27 ml/min; Glucose 410 mg/dL (74-106); Potassium 4.8 mmol/L (3.5-5.1); Sodium Level 135 mmol/L (136-145)
[2023-04-24] MEDS: Methylprednisolone Sod Succ 40 MG/ML VIAL IV ×3 (06:16→21:13)
[2023-04-24] MEDS: 0.9% Saline Lock 10 ML Syringe IV (06:16)
[2023-04-24] MEDS: Nystatin Powder 15gm Bottle 1 APPLIC TOPICAL ×3 (06:17→21:13)
--- NOTE | 2023-04-24 06:26 | ECHOD_ITS ---
Reason For Study: SOB Procedure This was a 2D Doppler, Color Flow transthoracic echocardiogram. The study was technically difficult. Due to body habitus. Left Ventricle Normal LV size. Left ventricular systolic function is normal. The estimated ejection fraction is 55 %. No regional wall motion abnormalities noted. Right Ventricle Normal RV size. Normal systolic function. Atria The left atrium is moderately enlarged. Normal right atrium. Mitral Valve There is mild mitral annular calcification. Tricuspid Valve Normal tricuspid valve. Mild tricuspid valve insufficiency. Pulmonary artery systolic pressure is 30 mmHg. Aortic Valve Trisinus/trileaflet aortic valve. Pulmonic Valve Normal pulmonic valve. Great Vessels Normal aortic root. The pulmonary artery is normal size. Normal inferior vena cava. Pericardium/Pleural No pericardial effusion. MMode/2D Measurements & Calculations LVIDd: 5.7 cm IVSd: 1.1 cm Ao root diam: 3.2 cm LVIDs: 3.7 cm LVPWd: 1.2 cm RVDd: 3.2 cm FS: 36.0 % LAV(MOD-bp): 96.5 ml RVOT diam: 3.4 cm LA A4 area: 28.8 cm2 LAV(MOD-bp) Indexed: 36.3 ml/m2 LAV(MOD-sp2): 82.7 ml LAV(MOD-sp4): 111.3 ml LA dimension(2D): 4.4 cm RA A4 area: 20.8 cm2 Time Measurements MV dec time: 0.19 sec Doppler Measurements & Calculations MV E max ad: 135.5 cm/sec Lat Peak E' Ad: 9.6 cm/sec Med Peak E' Ad: 9.0 cm/sec MV A max ad: 92.4 cm/sec E/E' lat: 14.1 E/E' med: 15.0 MV E/A: 1.5 MV V2 max: 140.4 cm/sec MV P1/2t max ad: 135.4 cm/sec Ao V2 max: 185.4 cm/sec MV max P.9 mmHg MV P1/2t: 61.2 msec Ao max P.8 mmHg MV V2 mean: 73.2 cm/sec MV dec slope: 647.9 cm/sec2 Ao V2 mean: 129.6 cm/sec MV mean P.6 mmHg Ao mean P.6 mmHg MV V2 VTI: 35.8 cm MVA(P1/2t): 3.6 cm2 Ao V2 VTI: 42.5 cm AV (velocity ratio): 0.63 LV V1 max: 115.3 cm/sec PA V2 max: 93.3 cm/sec TR max ad: 246.1 cm/sec LV V1 max P.3 mmHg TR max P.2 mmHg LV V1 mean P.5 mmHg LV V1 mean: 90.9 cm/sec LV V1 VTI: 27.0 cm ECHO/Echo Complete Interpretation Summary Normal LV size. Left ventricular systolic function is normal. The estimated ejection fraction is 55 %. Pulmonary artery systolic pressure is 30 mmHg. Ordering Physician: Chris Gill Referring Physician: Eleuterio Oreilly Performed By: Anita Metzger RDCS, RVT
[2023-04-24 06:51] LABS: Bedside Glucose 441 mg/dL (74-106)
--- NOTE | 2023-04-24 07:21 | PCM.PN.HOSP ---
Reason for Visit Reason for Visit: Shortness of breath Subjective Subjective Patient is a morbidly obese 47-year-old white female who who presented to emergency department at [facility] on 04/23/2023. She does have a history of obstructive sleep apnea for which she utilizes Nocturnally, chronic diastolic heart failure and COPD. She had been having persistent shortness of breath for approximately 1 week and its worse with exertion. She had noticed an increase in frequency of her cough that is productive of yellow thick sputum. Sounds like her sputum production has increased. On presentation the emergency department physician noted that she was tight and having wheezing. She was hypoxic and required oxygen at 6 L nasal cannula. At baseline she utilizes 4 L at rest and 5 with exertion. She was reporting orthopnea as well. Sats on 6 L or 89%. Vital signs were otherwise unremarkable. CBC showed a leukocytosis with a left shift and chronic stable anemia. Her chemistry panel was unremarkable. Glucose was 256. Her BNP was normal and her troponin was normal. She was admitted to the medical floor and placed on treatment for acute exacerbation of COPD. Patient states she is feeling a little bit better today. We were able to clarify with her oxygen company that she is on 5 L at all times. No significant sputum production. Patient is still smoking. Objective Data Objective Data Vital Signs: Vital Signs Temp Pulse Resp BP Pulse Ox O2 Del Method O2 Flow Rate 98 F 82 18 122/63 H 93 Bi-pap 6 04/24/23 03:30 04/24/23 04:46 04/24/23 04:46 04/24/23 03:30 04/24/23 04:46 04/24/23 03:30 04/23/23 23:03 FiO2 45 04/24/23 04:46 Oxygen Flow Rate (L/min) 6 Oxygen Delivery Method Bi-pap Weight: 182.934 kg Body Mass Index (BMI) 66.4 Lab / Micro Data Result Diagrams: 04/24/23 03:20 04/24/23 03:20 Labs: Laboratory Results - last 24 hr 04/23/23 18:35: WBC 12.7 H, RBC 3.66 L, Hgb 9.0 L, Hct 32.7 L, MCV 89.3, MCH 24.6 L, MCHC 27.5 L, RDW Std Deviation 55.5 H, RDW Coeff of Darrion 17.1 H, Plt Count 277, MPV 9.4, Immature Gran % (Auto) 1.100 H, Neut % (Auto) 72.3 H, Lymph % (Auto) 20.4, [place] % (Auto) 3.5, Eos % (Auto) 2.0, Baso % (Auto) 0.7, Absolute Neuts (auto) 9.2 H, Absolute Lymphs (auto) 2.60, Nucleated RBC % 0.8 04/23/23 18:54: Sodium 137, Potassium 4.0, Chloride 96 L, Carbon Dioxide 36.0 H, Anion Gap 5, BUN 18, Creatinine 1.00, Estim Creat Clear Calc 63.93, Est GFR (MDRD) Af Amer 77, Est GFR (MDRD) Non-Af 64, BUN/Creatinine Ratio 18.0, Glucose 256 H, Calcium 8.0 L, Troponin I High Sens 24 04/23/23 18:54: B-Natriuretic Peptide 22.8 04/23/23 18:54: Lactic Acid 2.3 H* 04/24/23 00:07: Lactic Acid 2.1 H* 04/24/23 00:26: POC Glucose 350 H 04/24/23 03:20: WBC 11.1 H, RBC 3.91 L, Hgb 9.6 L, Hct 35.6 L, MCV 91.0, MCH 24.6 L, MCHC 27.0 L, RDW Std Deviation 56.8 H, RDW Coeff of Darrion 17.1 H, Plt Count 281, MPV 9.7, Immature Gran % (Auto) 1.400 H, Neut % (Auto) 87.9 H, Lymph % (Auto) 9.1 L, [place] % (Auto) 0.7, Eos % (Auto) 0.3, Baso % (Auto) 0.6, Absolute Neuts (auto) 9.8 H, Absolute Lymphs (auto) 1.01, Nucleated RBC % 0.4 04/24/23 03:20: Sodium 135 L, Potassium 4.8, Chloride 97 L, Carbon Dioxide 32.0, Anion Gap 6, BUN 22 H, Creatinine 1.20 H, Estim Creat Clear Calc 53.27, Est GFR (MDRD) Af Amer 62, Est GFR (MDRD) Non-Af 51 L, BUN/Creatinine Ratio 18.3, Glucose 410 H, Calcium 7.8 L 04/24/23 06:13: POC Glucose 441 H Micro: Microbiology 04/23/23 18:54 Nasal Secretion SARS-CoV-2 & FLU Antigen (Rapid) - Final Radiography Diagnostic Testing: Radiology Impression Chest X-Ray 04/23/23 19:00 IMPRESSION: Findings suggest CHF exacerbation. Electronically Signed: Leonides Lakhani MD at 19:22 EDT Reading Location ID and State: [facility] / [place] Tel , Service support , Physical Exam Const alert, oriented x3 and no apparent distress; Negative for average body habitus or healthy appearing Constitutional Narrative: Super morbidly obese, white female, lying bed, family at bedside, appears comfortable and nontoxic currently, and nursing at bedside, appears chronically ill HEENT head/scalp atraumatic and moist oral mucous membranes HEENT Narrative: Dentition is poor, Mallampati is 4, no thrush Head and Scalp: normocephalic Resp normal respiratory effort, no retractions and no use of accessory muscles Resp Narrative: Diffuse scattered end expiratory wheeze Auscultation: wheezes; Negative for rales or rhonchi Cardio regular rate, regular rhythm, S1 normal heart sound, S2 normal heart sound, no murmurs, no rub, no gallops and no clicks GI normal to inspection, nondistended, normoactive bowel sounds, soft to palpation and non-tender GI Narrative: Very large protuberant abdomen with large pannus Extremity Extremity Narrative: Excoriations on anterior aspect of bilateral lower legs, 1+ pitting edema bilateral lower extremities, no cyanosis or clubbing Skin Skin Narrative: Excoriations as noted above, groin wound noted and images reviewed with wound care Neuro oriented x3, moves all extremities and no focal motor deficits Speech: speech normal Psych Psych Narrative: Affect is flat and mood is depressed Assessment & Plan Assessment/Plan (1) COPD with acute exacerbation: (2) Hypoxia: (3) Elevated lactic acid level: PLAN: Plan Acute hypoxia/shortness of breath secondary to acute exacerbation of COPD -COVID-19 negative on presentation -Check respiratory viral panel -Check strep pneumo and Legionella antigens -Check sputum culture if able to produce -Incentive spirometer -Pep therapy with Acapella -BiPAP therapy as needed at at bedtime and as needed -Hold on antimicrobials at this time -DuoNebs scheduled and as needed -Solu-Medrol with transition to oral prednisone at discharge -Supplemental oxygen as needed-currently on 6 L at rest -Work towards weaning to baseline oxygen of 5 L [id number] -Will need ambulatory pulse ox prior to discharge -From an outpatient pulmonary follow-up Lactic acidosis -Likely related to hypoxia -Resolving with oxygen supplementation Chronic hypoxic and hypercapnic respiratory failure -Upon review of previous blood gases baseline PCO2 is around 50-55 -Patient chronically O2 dependent on 5 L supplemental oxygen at home -BiPAP dependent nocturnally and with naps -Recommend continued outpatient follow-up with pulmonary medicine Chronic diastolic and right-sided heart failure -BNP was normal on admission/troponin negative -Discontinue IV Lasix and transition back to oral Lasix 40 twice daily -Last echocardiogram from 01/07/2020 shows an EF of 55% but visualization was poor due to body habitus -Echo has been ordered and is pending -Patient is on SGLT2 inhibitor DM-2 uncontrolled -Sugars are currently higher than baseline as she is on steroids -Continue home insulin and increase to 125 of basal insulin from 104 units -Increase scheduled insulin from 40 to 50 units 3 times daily -Increase sliding scale to high-dose -Continue home Jardiance -Hold home metformin Chronic anemia -Hemoglobin stable -Baseline is between 9 and 10 -Monitor GERD -Continue Protonix History of PE -Continue Eliquis twice daily Diabetic neuropathy -Continue home gabapentin LOGAN/obesity hypoventilation syndrome -Continue BiPAP with naps and nightly -Follow-up with Dr. Dumont as an outpatient Hyperlipidemia -Continue statin Depression -Patient is not medicated for this Hypertension -Continue diltiazem -Restart home Lasix -Continue lisinopril -Continue metoprolol DVT prophylaxis -Patient is fully anticoagulated with Eliquis CODE STATUS -Full code Charges/Coding Visit Charges Inpatient E&M: 62605 Subs Hosp L2
[2023-04-24] MEDS: Ipratropium/Albuterol Sulfate 3 ML AMPUL.NEB INHALATION ×4 (07:30→19:24)
[2023-04-24] MEDS: Multivitamins,Ther W-Minerals Tablet 1 TABLET PO (07:44)
[2023-04-24] MEDS: Fenofibrate 145 MG Tablet PO (07:45)
[2023-04-24] MEDS: Insulin Lispro 100 UNIT/ML INSULN.PEN 50 UNIT SC ×3 (07:46→16:19)
[2023-04-24] MEDS: Pantoprazole Sodium 40 MG Tablet PO (10:12)
[2023-04-24] MEDS: Empagliflozin 10 MG Tablet PO (10:12)
[2023-04-24] MEDS: Metoprolol(XL)Succ 25 MG Tablet PO (10:12)
[2023-04-24] MEDS: Lisinopril 10 MG Tablet PO (10:12)
[2023-04-24] MEDS: dilTIAZem CD 120 MG Capsule PO (10:12)
[2023-04-24] MEDS: Insulin Glargine-YFGN 100 UNIT/ML Pen 125 UNIT SC ×2 (10:14→21:20)
--- NOTE | 2023-04-24 10:37 | WOUNDNOTE ---
wound photo: left groin/labial region
--- NOTE | 2023-04-24 10:38 | WOUNDNOTE ---
wound photo:left groin/labial region
--- NOTE | 2023-04-24 11:38 | CASEMGMT ---
LORENZO GARCÍA NOTE: Call placed to [facility] to verify pt's home O2 order. Spoke w/Marce who stated the last orders they have for pt is 2 l/m contin from an order from 2021. She was made aware an updated O2 order for 5 l/m continuous on 03/05/23 was sent to [facility] via [employer] when pt d/c'd home. She states does not have that in their records. LORENZO GARCÍA located the script from 03/05/23 along w/Home O2 testing and these were both faxed to [facility] at this time. Chalino @ [facility] made aware so their orders can be updated. Abena SIMPSON RN, CM
[2023-04-24 11:55] LABS: Bedside Glucose 359 mg/dL (74-106)
--- NOTE | 2023-04-24 12:00 | CASEMGMT ---
Addendum entered by Nato Plata 04/24/23 13:27: Pt states she knows she has an appt somewhere tomorrow, but not sure where, stating it may be w/[facility] physician. Call to [facility] Family physicians. No appts noted on their end. Pt made aware. RN CM instructed pt to let RN CM know if she thinks of somewhere else the appt be so assistance can be provided w/rescheduling the appt, if needed. Original Note: RN?CM?CASH MANAGEMENT COORDINATOR?CM?to room to meet with patient for initial transition planning/care coordination?assessment.?RN?CM?introduced self and role at [facility].? Pt voices understanding and consents to?assessment?at this time.? Pt resting in bed in no distress at this time. Pt had BIPAP in place initially, but RNLeticia, states okay to switch over to 6 l/m NC at this time. Pt is A/O at this time and answers all questions appropriately, although she does fall asleep quickly.?? Care providers, pharmacy, and demographics verified/updated at this time. PCP: Dr Oreilly Specialists: Scoreboard Operator at [facility]. Dr Dumont-pulmonology--pt thinks she has an appt with him tomorrow and would like it rescheduled. Call to Dr Dumont's office and spoke w/Cass. She states pt has an appt w/Dr Dumont on 05/02 @ 1:15 PM. Pt made aware and this was added in discharge plan. Preferred Pharmacy: [place], [facility] Retail [facility] [employer] [facility] [employer] Prescription Benefit: yes Living Will/HPOA: pt does not have either. Per admission questions, pt stated wanted additional info. Leigh OCONNOR, is aware. LNOK: daughterNaveed. Mother, Remedios Living Arrangements: Patient lives with friend in a mobile home with 3 steps and railing to enter the home. Pt indep w/ADL's and manages her own medications. Her cousin assists w/laundry. She has a CM through [employer], [place]. Leigh OCONNOR, made aware. She receives home-delivered meals and also does some cooking on her own. She states she qualifies for aides, but there are currently none available. Transportation: daughterNaveed. niece DME:Patient has shower chair, cane, walker, nebulizer, hospital bed, medical alert button, continuous glucose monitoring system, pulse ox and home oxygen through [employer] with portability@ 5 L/M. She states someone can bring in the portable O2 for her to go home on. She has a BIPAP and states she has been wearing it every HS. SNF/HHC: No previous SNF. Active w/[facility]. Pt states is for SN only and they do wound care. She denies needing/wanting therapy. She would like to resume w/them @ d/c and declines wanting list of other HHC options. Call to [facility] and they were notified of pt's admission. They verified pt is just receiving SN. [facility] order placed. PLAN:??Home w/[facility]: SN. Abena RODRIGUEZN?RN?CM
--- NOTE | 2023-04-24 12:12 | CASEMGMT ---
Discharge Planning referral for resumption of care sent to [facility] via [facility]. Lula Tao
[2023-04-24 16:40] LABS: Bedside Glucose 245 mg/dL (74-106)
[2023-04-24 22:13] LABS: Bedside Glucose 259 mg/dL (74-106)
[2023-04-25] VITALS (10 sets, daily range): BP systolic 119–145; BP diastolic 54–75; PULSE 58–79; RESP 12–20; TEMP 36.5–36.6; O2SAT 93–97; BMI 64.9
[2023-04-25] MEDS: Methylprednisolone Sod Succ 40 MG/ML VIAL IV (05:17)
[2023-04-25] MEDS: Insulin Lispro 100 UNIT/ML INSULN.PEN SC ×2 (05:17→11:48)
[2023-04-25] MEDS: 0.9% Saline Lock 10 ML Syringe IV (05:17)
[2023-04-25] MEDS: Nystatin Powder 15gm Bottle 1 APPLIC TOPICAL (05:17)
[2023-04-25] MEDS: Gabapentin 800 MG Tablet PO (05:17)
[2023-04-25 05:42] LABS: Bedside Glucose 312 mg/dL (74-106)
[2023-04-25 06:20] LABS: Absolute Lymphocyte Count 0.92 X10^3/uL (0.83-4.51); Absolute Neutrophil Count 10.3 X10^3/uL (2.0-7.7); Basophil# 0.03 X10^3/uL; Basophil% 0.3 % (0-1); Hematocrit 33.6 % (37-47); Hemoglobin 9.5 g/dL (12.0-15.0); Lymphocyte # 0.92 X10^3/ul (0.83-4.51); Mean Corp Hgb Conc 28.3 g/dL (32-36); Mean Corpuscular Hgb 25.1 pg (27.0-32.0); Mean Corpuscular Volume 88.9 fL (81-99); Mean Platelet Vol. 9.4 fl (6.2-12.0); Monocyte# 0.25 X10^3/uL; Monocyte% 2.2 % (0-10); NRBC Flagged by Analyzer 0.2 % (0-5); Platelet Count 264 K/mm3 (150-450); RBC Distribution Width CV 16.6 % (11.6-14.6); RBC Distribution Width SD 53.5 fl (35.1-43.9); Red Blood Count 3.78 M/mm3 (4.2-5.4); White Blood Count 11.6 K/mm3 (4.4-11.0)
[2023-04-25 06:50] LABS: Anion Gap 4 (5-15); BUN 30 mg/dL (7-18); BUN/Creat Ratio 32.2 RATIO (10-20); Calcium,Total 8.9 mg/dL (8.5-10.1); Chloride 96 mmol/L (98-107); Creatinine, Serum 0.93 mg/dL (0.55-1.02); EST Glomerular Filtration Rate 69 mL/min (>60); Est Glom Filt Rate - Afr Amer 83 mL/min (>60); Estimated Creatinine Clearance 68.74 ml/min; Glucose 301 mg/dL (74-106); Magnesium 2.1 mg/dL (1.6-2.6); Phosphorus 3.3 mg/dL (2.5-4.9); Potassium 4.3 mmol/L (3.5-5.1); Sodium Level 137 mmol/L (136-145)
[2023-04-25] MEDS: Ipratropium/Albuterol Sulfate 3 ML AMPUL.NEB INHALATION ×2 (07:05→10:52)
[2023-04-25] MEDS: Fenofibrate 145 MG Tablet PO (07:46)
[2023-04-25] MEDS: Multivitamins,Ther W-Minerals Tablet 1 TABLET PO (07:46)
[2023-04-25] MEDS: Insulin Lispro 100 UNIT/ML INSULN.PEN 58 UNIT SC ×2 (07:47→11:47)
[2023-04-25] MEDS: guaiFENesin 1,200 MG Tablet 1200 MG PO (10:24)
[2023-04-25] MEDS: APIXABAN 5 MG TABLET PO (10:24)
[2023-04-25] MEDS: dilTIAZem CD 120 MG Capsule PO (10:24)
[2023-04-25] MEDS: Furosemide 40 MG Tablet PO (10:25)
[2023-04-25] MEDS: Pantoprazole Sodium 40 MG Tablet PO (10:25)
[2023-04-25] MEDS: Empagliflozin 10 MG Tablet PO (10:25)
[2023-04-25] MEDS: Lisinopril 10 MG Tablet PO (10:25)
[2023-04-25] MEDS: Metoprolol(XL)Succ 25 MG Tablet PO (10:25)
[2023-04-25] MEDS: Insulin Glargine-YFGN 100 UNIT/ML Pen 135 UNIT SC (10:26)
--- NOTE | 2023-04-25 10:38 | CASEMGMT ---
Notified palliative care by email that pt will dc today. Per pt nurse, pt does not qualify for increased oxygen needs.
--- NOTE | 2023-04-25 10:49 | CASEMGMT ---
Social Work Referral received for Social Determinants of Health. Assessment completed and transportation resources provided. Referral received for Advance Directives. ELVIN spoke with pt regarding Health Care POA and Living Will. Pt choosing to compete HCPOA at this time and pt states she does not want to complete Living Will as she would want everything done . Pt naming her daughter Naveed Gordon as HCPOA. Original given to patient and copy placed on pt chart. Pt has services through [facility] and Brandy Ross is [employer] ([phone]). ELVIN notified [place] at [facility] of admission and Pt has an emergency response system and home delivered meals. Pt is eligible for Aid services but providers are not available. D/C orders will be faxed at [facility] at time of discharge. Pt denies any further needs at this time. PER Friedman
[2023-04-25 11:26] LABS: Bedside Glucose 298 mg/dL (74-106)
--- NOTE | 2023-04-25 12:24 | DS.PCM_ITS ---
Providers Date of Admission: 04/23/23 Date of Discharge: 04/25/23 Primary Care Physician: Dr. Tino Oreilly MD Consultations 04/23/23 23:34 Consult: Onc/Wound/data capture specialist Routine Comment: L labia wound Reason For Visit: COPD EXACERBATION Diagnosis Discharge Diagnosis (1) COPD with acute exacerbation: Status: Chronic Code(s): J44.1 - Chronic obstructive pulmonary disease with (acute) exacerbation (2) Hypoxia: Status: Acute Code(s): R09.02 - Hypoxemia (3) Elevated lactic acid level: Status: Acute Code(s): R79.89 - Other specified abnormal findings of blood chemistry Medications at Discharge Home Medications multivit-iron 18 mg-folic acid 400 mcg-calcium 500 mg-minerals tablet 1 ea PO DAILY supplement 03/26/17 omeprazole 40 mg capsule,delayed release 40 mg PO DAILY GERD 12/15/18 loratadine 10 mg tablet 10 mg PO DAILY PRN Allergies 03/01/20 apixaban 5 mg tablet 5 mg PO BID blood thinner 08/20/20 diltiazem HCl 120 mg capsule,extended release 24 hr 120 mg PO DAILY heart rate 08/20/20 lisinopril 10 mg tablet 10 mg PO DAILY blood pressure 03/26/21 metformin 500 mg tablet,extended release 24 hr 2,000 mg PO DAILY diabetes 03/26/21 metoprolol succinate 25 mg tablet,extended release 24 hr 25 mg PO DAILY blood pressure 03/26/21 atorvastatin 80 mg tablet 80 mg PO QHS cholesterol 02/07/22 furosemide 40 mg tablet 40 mg PO BID diuretic 09/22/22 insulin lispro 100 unit/mL subcutaneous pen (Humalog KwikPen (U-100) Insulin) 50 unit (0.5 mL) subcut TIDAC #0 mL 09/24/22 albuterol sulfate 2.5 mg/3 mL (0.083 %) solution for nebulization 2.5 mg inhalation Q4H PRN SOB 12/09/22 empagliflozin 10 mg tablet (Jardiance) 10 mg PO DAILY DM 12/09/22 fenofibrate nanocrystallized 145 mg tablet 145 mg PO DAILY CHOLESTEROL 12/09/22 furosemide 20 mg tablet 20 mg PO PRN PRN Edema 12/09/22 gabapentin 800 mg tablet 800 mg PO TID NERVE PAIN 12/09/22 potassium chloride 20 mEq tablet,extended release 20 meq PO BID supplement 12/19/22 insulin degludec 200 unit/mL (3 mL) subcutaneous pen (Tresiba FlexTouch U-200 insulin) 104 unit subcut BID DM 12/24/22 guaifenesin 1,200 mg tablet, extended release 12 hr (Mucus Relief ER) 1,200 mg PO BID #0 tabs 04/25/23 prednisone 10 mg tablet 10 mg PO DAILY #40 tabs 04/25/23 Hospital Course Procedures 2-D Echocardiogram, EKG and - (Chest x-ray) Summary of Care Provided Minutes Spent on Discharge: 38 Hospital Course: Patient is a morbidly obese 47-year-old white female who who presented to emergency department at [facility] on 04/23/2023.? She does have a history of obstructive sleep apnea for which she utilizes BiPAP nocturnally, chronic diastolic heart failure, and COPD.? She had been having persistent shortness of breath for approximately 1 week and its worse with exertion.? She had noticed an increase in frequency of her cough that is productive of yellow t hick sputum but she reports this is pretty consistent with her baseline.? On presentation the emergency department physician noted that she was tight and having wheezing.? She was hypoxic and required oxygen at 6 L nasal cannula.? At baseline she utilizes 5 L at baseline with rest and exertion.? She was reporting orthopnea as well.? Sats on 6 L or 89%.? Vital signs were otherwise unremarkable.? CBC showed a leukocytosis with a left shift and chronic stable anemia.? Her chemistry panel was unremarkable.? Glucose was 256.? Her BNP was normal and her troponin was normal.? She was admitted to the medical floor and placed on treatment for acute exacerbation of COPD and placed on high flow nasal cannula at 6 L. She was initially placed on extra diuretics however her BNP was within normal range so we placed her back on her baseline Lasix and continue treatment for COPD exacerbation. COVID-19 and flu are negative. Respiratory viral panel was negative. Strep pneumo and Legionella antigens were negative. Sputum culture was obtained and pending at the time of discharge however my suspicion for acute pneumonia or respiratory infection worse quite low. She was also treated with steroids and aggressive DuoNebs. By the a.m. of 04/25/2023 the patient was weaned back to her baseline oxygen of 5 L and she was tested with rest and exertion and maintain oxygen saturations greater than 88% on 5 L during this. She indicated she was about 90% better overall and anxious to go home. An echocardiogram was obtained on 04/24/2023 and showed EF of 55% with a pulmonary systolic pressure of 30 mmHg. This echocardiogram was comparable to her previous echocardiogram done in January 2020. Her blood sugars were elevated during her steroid utilization while hospitalized. I expect they will remain elevated while she is on her prednisone taper at home and we discussed this prior to discharge. She does follow with endocrinology as an outpatient and will continue her home insulin dosing. She did voiced understanding that her blood sugars may be elevated for short time higher than baseline while she is on her oral prednisone taper as well. Prednisone taper was faxed to the pharmacy and she was able to be discharged home in stable condition on 04/25/2023. We did make an appointment for her to be followed up by her primary civil design technician Dr. Dumont in early May. I have asked that she follow-up with her primary care physician within the next 2 weeks. Patient is still utilizing tobacco and we strongly recommend cessation. Discharge diagnoses:. Acute hypoxia/shortness of breath secondary to acute exacerbation of COPD Lactic acidosis-resolved Chronic hypoxic and hypercapnic respiratory failure Chronic diastolic and right-sided heart failure [id number] Chronic anemia GERD History of PE Diabetic neuropathy LOGAN Obesity hypoventilation syndrome Hyperlipidemia Depression Hypertension Tobacco abuse Physical Exam Const alert, oriented x3 and no apparent distress; Negative for average body habitus or healthy appearing Constitutional Narrative: Super morbidly obese, white female, ambulating around room with nursing center tutor at bedside appears comfortable and nontoxic currently, appears chronically ill General Appearance: cooperative, comfortable, well kempt and well developed Orientation / Consciousness: awake, oriented to person, oriented to place and oriented to time Nutritional Appearance: morbidly obese HEENT normocephalic, head/scalp atraumatic, hearing grossly normal bilaterally and moist oral mucous membranes HEENT Narrative: Mallampati 4, no thrush Eyes PERRL and EOMs intact bilaterally; Negative for conjunctivae normal Eyes Narrative: Conjunctiva are mildly pale, no scleral icterus Neck no lymphadenopathy and supple Neck Narrative: Neck is short and thick, trachea midline Resp normal respiratory effort, no retractions and no use of accessory muscles Resp Narrative: Diffuse scattered end expiratory wheeze however much improved and much less coarse Auscultation: wheezes; Negative for rales or rhonchi Cardio regular rate, regular rhythm, S1 normal heart sound, S2 normal heart sound, no murmurs, no rub, no gallops and no clicks GI normal to inspection, nondistended, normoactive bowel sounds, soft to palpation and non-tender GI Narrative: Very large protuberant abdomen with large pannus Extremity Extremity Narrative: Excoriations on anterior aspect of bilateral lower legs, 1+ pitting edema bilateral lower extremities, no cyanosis or clubbing Skin skin turgor normal and no jaundice Skin Narrative: Excoriations as noted above, groin wound noted and images reviewed with wound care Neuro oriented x3, CN's II-XII intact bilaterally, moves all extremities and no focal motor deficits Neuro Narrative: Ambulates independently with no significant gait deviations Motor Exam: strength 5/5 throughout Psych affect normal Psych Narrative: Very pleasant, appropriately interactive Weight / BMI Weight Weight: 178.9 kg Body Mass Index (BMI) 64.9 ABG / Lab / Microbiology Data Result Diagrams: 04/25/23 05:55 04/25/23 05:55 Laboratory: Laboratory Results - last 24 hr 04/24/23 16:18: POC Glucose 245 H 04/24/23 21:11: POC Glucose 259 H 04/25/23 05:15: POC Glucose 312 H 04/25/23 05:55: WBC 11.6 H, RBC 3.78 L, Hgb 9.5 L, Hct 33.6 L, MCV 88.9, MCH 25.1 L, MCHC 28.3 L, RDW Std Deviation 53.5 H, RDW Coeff of Darrion 16.6 H, Plt Count 264, MPV 9.4, Immature Gran % (Auto) 0.500, Neut % (Auto) 89.0 H, Lymph % (Auto) 8.0 L, [place] % (Auto) 2.2, Eos % (Auto) 0.0, Baso % (Auto) 0.3, Absolute Neuts (auto) 10.3 H, Absolute Lymphs (auto) 0.92, Nucleated RBC % 0.2 04/25/23 05:55: Sodium 137, Potassium 4.3, Chloride 96 L, Carbon Dioxide 37.0 H, Anion Gap 4 L, BUN 30 H, Creatinine 0.93, Estim Creat Clear Calc 68.74, Est GFR (MDRD) Af Amer 83, Est GFR (MDRD) Non-Af 69, BUN/Creatinine Ratio 32.2 H, Glucose 301 H, Calcium 8.9, Phosphorus 3.3, Magnesium 2.1 04/25/23 11:07: POC Glucose 298 H Microbiology: Microbiology 04/24/23 18:00 Sputum, Expectorated/Coughed Gram Stain - Preliminary 04/24/23 15:00 Urine, Clean Catch Legionella Antigen - Final 04/24/23 15:00 Urine, Clean Catch Streptococcus pneumoniae Antigen (M - Final 04/24/23 08:24 Mucosa - Nose Respiratory Panel (PCR) - Final 04/23/23 18:54 Nasal Secretion SARS-CoV-2 & FLU Antigen (Rapid) - Final Radiography Diagnostic Testing: Radiology Impression Echocardiogram 04/24/23 06:26 Interpretation Summary Normal LV size. Left ventricular systolic function is normal. The estimated ejection fraction is 55 %. Pulmonary artery systolic pressure is 30 mmHg. Ordering Physician: Chris Gill Referring Physician: Eleuterio Oreilly Performed By: Anita Metzger RDCS, RVT D/C Instructions Discharge Diet: Low fat / Low cholesterol, 1800 Calorie Control Diet, 8 Cup Fluid Restriction and 2000 mg Sodium Diet Discharge Activity: Return to Normal Activity Meaningful Use Info Meaningful Use Diagnoses (Choose all that apply): None applicable Discharge Plan Admission Admit Date/Time: 04/23/23 21:45 Primary Reason for Your Visit: Shortness of breath/COPD exacerbation Attending Provider: Belem Aponte Primary Care Provider: Tino Oreilly Consulting Providers: Chris Gill Instructions Additional Instructions / Restrictions: 1. Your blood sugars will run higher for several days until your prednisone taper is completed 2. Please wear your oxygen at 5 L all the time and BiPAP at night 3. Highly recommend complete tobacco cessation as discussed during admission Discharge Orders/Prescriptions Prescriptions: New Mucus Relief ER 1,200 mg Tablet Extended Release 12hr 1,200 mg PO BID Qty: 0 0RF prednisone 10 mg tablet 10 mg PO DAILY Qty: 40 0RF Rx Instructions: 4 tablets x 4 days, 3 tablets x 4 days, 2 tablets x 4 days, 1 tablet x 4 days Continued loratadine 10 mg tablet 10 mg PO DAILY PRN (Reason: Allergies) lisinopril 10 mg tablet 10 mg PO DAILY Label Comments: TAKE 1 TABLET BY MOUTH EVERY DAY metformin 500 mg tablet extended release 24 hr 2,000 mg PO DAILY metoprolol succinate 25 mg tablet extended release 24 hr 25 mg PO DAILY Label Comments: TAKE 1 TABLET BY MOUTH EVERY DAY atorvastatin 80 mg tablet 80 mg PO QHS khduxpqn-[id number]-DD-calcium-mins 1 EACH tablet 1 ea PO DAILY Label Comments: vitamin omeprazole 40 MG capsule,delayed release(DR/EC) 40 mg PO DAILY diltiazem HCl 120 MG capsule 120 mg PO DAILY apixaban 5 MG tablet 5 mg PO BID furosemide 40 mg tablet 40 mg PO BID Label Comments: Take 1 tablet by mouth twice daily. insulin lispro [Humalog KwikPen Insulin] 100 unit/mL Insulin Pen 50 unit subcut TIDAC Qty: 0 0RF albuterol sulfate 2.5 mg /3 mL (0.083 %) solution for nebulization 2.5 mg inhalation Q4H PRN (Reason: SOB) gabapentin 800 mg tablet 800 mg PO TID furosemide 20 mg tablet 20 mg PO PRN PRN (Reason: Edema) fenofibrate nanocrystallized 145 mg tablet 145 mg PO DAILY Jardiance 10 mg tablet 10 mg PO DAILY potassium chloride 20 mEq tablet extended release 20 meq PO BID insulin degludec [Tresiba FlexTouch U-200] 200 unit/mL (3 mL) insulin pen 104 unit SUBCUT BID Label Comments: INJECT 100 UNITS SUBCUTANEOUSLY TWICE DAILY (this replaces levemir) Referrals / Follow Up: Berlin Dumont MD [Med Staff - Active Staff] - 05/02/23 1:15 pm Tino Oreilly MD [Primary Care Provider] - Within 2 Weeks Disposition Disposition (needs filled in before D/C Order can be placed): Home Health Service Charges/Coding Visit Charges Inpatient E&M: 32423 Disch Hosp >30min
--- NOTE | 2023-04-25 13:06 | CASEMGMT ---
Discharge Planning Discharge Summary sent to CC via [employer]. Lula Tao
--- NOTE | 2023-04-28 12:15 | PCM.HOSP.N ---
Hospitalist Note Follow-up sputum culture finalized showed Staph aureus growth that was MRSA. Linezolid 600 mg p.o. twice daily sent to her pharmacy for a total of 7-day course. I did try to call the patient however her phone went straight to [employer]. I was able to contact her daughter who is listed as a person and notify. Her name is Naveed Gordon and told her that I faxed the prescription to [facility] in [place] and she should initiate the antibiotics as soon as they are picked up today.
== END 2023-04-25 13:13 | disposition home health service (06) | DRG 191 ==
LOC: ED 22:05 → MS3 04-24 06:58
PROVIDERS: Admitting Provider Hospitalist; Emergency Provider Emergency Medicine; PCP Family Medicine; Visit Provider Internal Medicine
DX: J44.1 Chronic obstructive pulmonary disease with (acute) exacerbation (principal); I50.32 Chronic diastolic (congestive) heart failure; I11.0 Hypertensive heart disease with heart failure; I50.810 Right heart failure, unspecified; E11.40 Type 2 diabetes mellitus with diabetic neuropathy, unspecified; E11.65 Type 2 diabetes mellitus with hyperglycemia; J96.12 Chronic respiratory failure with hypercapnia; J96.11 Chronic respiratory failure with hypoxia; E66.2 Morbid (severe) obesity with alveolar hypoventilation; Z68.44 Body mass index [BMI] 60.0-69.9, adult; Z79.4 Long term (current) use of insulin; E87.20 Acidosis, unspecified; E78.5 Hyperlipidemia, unspecified; F17.210 Nicotine dependence, cigarettes, uncomplicated; K21.9 Gastro-esophageal reflux disease without esophagitis; F32.A Depression, unspecified; R74.02 Elevation of levels of lactic acid dehydrogenase [LDH]; Z20.822 Contact with and (suspected) exposure to COVID-19; Z79.01 Long term (current) use of anticoagulants; Z79.84 Long term (current) use of oral hypoglycemic drugs; Z79.899 Other long term (current) drug therapy; L02.214 Cutaneous abscess of groin; B95.62 Methicillin resistant Staphylococcus aureus infection as the cause of diseases classified elsewhere
CPT/HCPCS: 36415; 71045; 80048; 82962; 83605; 83735; 83880; 84100; 84484; 85025; 87040; 87070; 87077; 87186; 87205; 87428; 87449; 87633; 93005; 93306; 94002; 94003; 94640; 94668; 94762; 96374; 96376; 97802; 99221; 99252; 99285; 99406; A4216; G0378; G0463

== ENCOUNTER 2023-07-14 11:09 | Observation (INO) | payer MEDICARE, MEDICAID, SELFPAY ==
[2023-07-14] VITALS (10 sets, daily range): BP systolic 116–165; BP diastolic 49–83; PULSE 65–84; RESP 12–22; TEMP 35.8–36.8; O2SAT 93–98; BMI 63.8; BMI 63.2
--- NOTE | 2023-07-14 11:27 | EKG12_ITS ---
Test Reason : CP Blood Pressure : / mmHG Vent. Rate : 063 BPM Atrial Rate : 063 BPM P-R Int : 140 ms QRS Dur : 092 ms QT Int : 432 ms P-R-T Axes : 046 006 057 degrees QTc Int : 442 ms Normal sinus rhythm Normal ECG Confirmed by KELVIN MARCUS ([id number]), photography editor RANDI BROWNLEE ([id number]) on 07/19/2023 9:27:50 AM Referred By: MARILEE Confirmed By:KELVIN MARCUS
--- NOTE | 2023-07-14 11:28 | EX.ED.DYSGE1 ---
HPI History of Present Illness Chief Complaint: Chest Pain Detail of Chief Complaint: Chest pain and edema Informant: patient Narrative Narrative: Patient states that she had increasing edema for the past week. Last evening she started noticing some chest heaviness as well. Patient has a history of CHF and is on Lasix. In spite of this she will frequently require admission for IV Lasix drip. Patient states that she was hospitalized at a hospital in [place] 5 to 6 weeks ago on life support with another flare. She has noted recent weight gain. [facility] Medical History Abscess Abscess of vulva Acute on chronic respiratory failure with hypoxia and hypercapnia KERRY (acute kidney injury) Anemia Anxiety BiPAP (biphasic positive airway pressure) dependence BMI 60.0-69.9, adult Chronic diastolic (congestive) heart failure Chronic respiratory failure with hypoxia Congestive heart failure Contusion of knee, right COPD (chronic obstructive pulmonary disease) Depression Diabetes Dyspnea on exertion Essential hypertension GERD (gastroesophageal reflux disease) Hidradenitis History of diabetes mellitus History of left heart catheterization (LHC) (~01/05/19) History of MRSA infection Hyperglycemia due to type 2 diabetes mellitus Hyperlipidemia Hypertension Hypoxia Morbid obesity Morbid obesity Necrotizing soft tissue infection Non-healing open wound of left groin Noncompliance with CPAP treatment NSTEMI (non-ST elevated myocardial infarction) 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 Old myocardial infarction On home oxygen therapy Open wound of vulva with complication Opiate overdose Perianal abscess Pulmonary embolism Respiratory failure with hypoxia Restrictive lung disease secondary to obesity Sleep apnea Smoker Soft tissue abscess of inguinal region Tobacco abuse Type 2 diabetes mellitus Type 2 diabetes mellitus with hyperglycemia Venous stasis dermatitis of both lower extremities Home Medications multivit-iron 18 mg-folic acid 400 mcg-calcium 500 mg-minerals tablet 1 ea PO DAILY supplement 03/26/17 [History Last Taken 07/14/23] omeprazole 40 mg capsule,delayed release 40 mg PO DAILY GERD 12/15/18 [History Last Taken 07/14/23] loratadine 10 mg tablet 10 mg PO DAILY PRN Allergies 03/01/20 [History Last Taken 07/14/23] apixaban 5 mg tablet 5 mg PO BID blood thinner 08/20/20 [History Last Taken 07/14/23] diltiazem HCl 120 mg capsule,extended release 24 hr 120 mg PO DAILY heart rate 08/20/20 [History Last Taken 07/14/23] lisinopril 10 mg tablet 10 mg PO DAILY blood pressure 03/26/21 [History Last Taken 07/14/23] metformin 500 mg tablet,extended release 24 hr 2,000 mg PO DAILY diabetes 03/26/21 [History Last Taken 07/14/23] metoprolol succinate 25 mg tablet,extended release 24 hr 25 mg PO DAILY blood pressure 03/26/21 [History Last Taken 07/14/23] atorvastatin 80 mg tablet 80 mg PO QHS cholesterol 02/07/22 [History Last Taken 07/14/23] furosemide 40 mg tablet 80 mg PO BID diuretic 09/22/22 [History Last Taken 07/14/23] insulin lispro 100 unit/mL subcutaneous pen (Humalog KwikPen (U-100) Insulin) 50 unit (0.5 mL) subcut TIDAC #0 mL 09/24/22 [Rx Last Taken 07/13/23] albuterol sulfate 2.5 mg/3 mL (0.083 %) solution for nebulization 2.5 mg inhalation Q4H PRN SOB 12/09/22 [History Last Taken 07/10/23] empagliflozin 10 mg tablet (Jardiance) 10 mg PO DAILY DM 12/09/22 [History Last Taken 04/23/23] fenofibrate nanocrystallized 145 mg tablet 145 mg PO DAILY CHOLESTEROL 12/09/22 [History Last Taken 07/14/23] furosemide 20 mg tablet 20 mg PO PRN PRN Edema 12/09/22 [History Last Taken Unknown] potassium chloride 20 mEq tablet,extended release(part/cryst) See Rx Instructions .Route .COMPLEX #60 TABLETS 06/20/23 [Rx Last Taken 07/14/23] citalopram 20 mg tablet 20 mg PO DAILY 07/14/23 [History Last Taken 07/14/23] insulin glargine U-300 conc 300 unit/mL (3 mL) subcutaneous pen (Toujeo Max U-300 SoloStar) 104 unit subcut BID 07/14/23 [History Last Taken 07/13/23] lorazepam 0.5 mg tablet 0.5 mg PO Q12H PRN anxiety 07/14/23 [History Last Taken 07/13/23] nicotine 21 mg/24 hr daily transdermal patch 1 patch topical Q24H 07/14/23 [History Last Taken 07/13/23] semaglutide 1 mg/dose (4 mg/3 mL) subcutaneous pen injector (Ozempic) 1 mg subcut .1XW 07/14/23 [History Last Taken 07/13/23] Allergy/AdvReac Type Severity Reaction Status Date / Time cyclobenzaprine HCl Allergy Hives Verified 07/14/23 11:09 [From Flexeril] venlafaxine [From Effexor] AdvReac Severe unknown Verified 07/14/23 11:09 Family History Father CVA (cerebral vascular accident) Heart disease Diabetes Mother Thyroid disorder Surgical History H/O arthroscopic knee surgery History of delivery History of cholecystectomy Social History household members: none Smoking Status: Former smoker how long ago did patient quit smokin PPD smoker second hand exposure: Yes alcohol intake: never substance use type: does not use caffeine: Yes Type: carbonated beverages Number of servings: 1 and coffee Number of servings: 1 ROS ROS ED Constitutional Constitutional ED: Denies chills or fever(s) Eyes Eyes: Denies change in vision or discharge from eye(s) ENT ENT ED: Denies discharge from eye(s), rhinorrhea or sore throat Cardiovascular Cardiovascular: Reports chest pain; Denies palpitations Respiratory/Chest Respiratory/Chest: Reports dyspnea; Denies cough Gastrointestinal Gastrointestinal: Denies abdominal pain, diarrhea, nausea or vomiting Genitourinary Genitourinary ED: Denies dysuria Musculoskeletal Musculoskeletal: Reports extremity pain; Denies back pain Integumentary Reports other Details: Anasarca ; Denies Abrasions or rash Neurologic Neurologic: Reports weakness; Denies headache(s) Psychiatric Psychiatric: Denies anxiety or depression Allergic/Immunologic Allergic/Immunologic ED: Denies lip swelling or urticaria EXAM Physical Exam Const Vital Signs: 07/14/23 11:09 07/14/23 11:39 07/14/23 11:39 Temperature 96.4 F L Temperature Source Temporal Pulse Rate 84 69 Respiratory Rate 22 H 12 Respiratory Effort Blood Pressure 165/83 H 155/73 H Blood Pressure Mean 110 100 Pulse Ox 93 95 94 Oxygen Delivery Method Room Air Nasal Cannula Nasal Cannula Oxygen Flow Rate (L/min) 5 5 5 07/14/23 11:40 07/14/23 13:09 07/14/23 13:13 Temperature 97.8 F Temperature Source Oral Pulse Rate 65 66 Respiratory Rate 14 13 Respiratory Effort Short of Breath Labored Blood Pressure 139/69 H 139/69 H Blood Pressure Mean 92 92 Pulse Ox 96 95 Oxygen Delivery Method Nasal Cannula Nasal Cannula Oxygen Flow Rate (L/min) 5 5 07/14/23 14:20 07/14/23 14:20 Temperature 97.9 F 97.9 F Temperature Source Oral Oral Pulse Rate 69 68 Respiratory Rate 16 19 H Respiratory Effort Blood Pressure 147/72 H 147/72 H Blood Pressure Mean 97 97 Pulse Ox 94 94 Oxygen Delivery Method Nasal Cannula Nasal Cannula Oxygen Flow Rate (L/min) 5 5 Positive well nourished and well developed General Appearance ED: well developed HEENT Reports normocephalic and head/scalp atraumatic Eyes PERRL and EOMs intact bilaterally Neck supple Chest Wall inspection of chest normal and palpation of chest normal Resp normal respiratory effort and clear to auscultation bilaterally Cardio regular rate and regular rhythm GI non-tender Palpation: soft Extremity Extremity Narrative: 3+ bilateral lower extremity edema. Neuro oriented x3 Neuro Narrative: No focal neurologic deficits. Sensorium / Orientation: alert Motor Exam: strength 5/5 throughout Psych mental status grossly normal Skin no rashes or lesions noted MDM MDM MDM Narrative Medical decision making narrative: Patient placed on eyelet row marker. EKG obtained to evaluate for cardiac arrhythmia/ischemia. Labwork obtained to evaluate for leukocytosis, anemia, and electrolyte derangement. Chest x-ray obtained to evaluate for acute lung pathology, cardiac size, or mediastinal abnormality. History & Record Review Discussion w/independent historian: Patient Additional record(s) reviewed:: Prior inpatient record, Prior ED visit and Prior labs Lab Data Attestation: I reviewed the patient's lab results. Labs: Laboratory Results - last 24 hr 07/14/23 13:03 WBC 8.9 RBC 3.47 L Hgb 9.2 L Hct 30.8 L MCV 88.8 MCH 26.5 L MCHC 29.9 L RDW Std Deviation 58.5 H RDW Coeff of Darrion 18.4 H Plt Count 317 MPV 9.2 Immature Gran % (Auto) 3.900 H Neut % (Auto) 67.8 Lymph % (Auto) 21.4 [place] % (Auto) 4.5 Eos % (Auto) 1.8 Baso % (Auto) 0.6 Absolute Neuts (auto) 6.1 Absolute Lymphs (auto) 1.91 Nucleated RBC % 0.2 Sodium 140 Potassium 4.4 Chloride 101 Carbon Dioxide 36.0 H Anion Gap 3 L BUN 19 H Creatinine 1.06 H Estim Creat Clear Calc 59.67 Est GFR (MDRD) Af Amer 72 Est GFR (MDRD) Non-Af 59 L BUN/Creatinine Ratio 17.9 Glucose 223 H Calcium 9.0 Troponin I High Sens 18 B-Natriuretic Peptide 40.4 Radiography Chest X-Ray - ED: 1 View, Read by ED Physician, Chronic Changes, Cardiomegaly and CHF Diagnostic Testing: Clinical Impression(s) from Imaging Studies Chest X-Ray 07/14/23 11:29 IMPRESSION: Vascular congestion and mild CHF. Electronically Signed: Dylan Gan MD at 11:49 EDT , EKG Initial EKG: Attestation: I personally reviewed and interpreted this EKG as follows: Interpretation: Sinus Rhythm (Sinus at 63 with no acute ischemia.) Treatment and Re-Evaluation :: CBC was normal white count 8.9 with a hemoglobin of 9.2. This appears to be consistent with her baseline. Chemistry studies reveal a bicarb of 36 with a BUN of 19 and a creatinine 1.06. Glucose is 223. Troponin is normal at 18. BNP is 40. Portable chest x-ray per my interpretation was chronic changes with cardiomegaly and mild CHF. Radiology interpretation is reviewed and agrees. On repeat evaluation patient's O2 sat is 91% on 4-1/2 L. Her legs are edematous and tense. I have seen this patient multiple times previously and although her BNP does not significantly elevate, it has been noted that she has been placed on Lasix drip in the hospital to get rid of excess of fluid with multiple liters drained. I do feel that she does require IV Lasix at this time as she is currently on 80 mg of Lasix a day and still gaining weight and becoming more swollen. I will speak with the hospitalist. Discharge Plan Triage Chief Complaint: Chest Pain ED Provider: Irina Quintero Dx/Rx/DC Orders Clinical Impression: CHF (congestive heart failure), Chest pain Prescriptions: No Action loratadine 10 mg tablet 10 mg PO DAILY PRN (Reason: Allergies) lisinopril 10 mg tablet 10 mg PO DAILY Patient Comments: TAKE 1 TABLET BY MOUTH EVERY DAY metformin 500 mg tablet extended release 24 hr 2,000 mg PO DAILY metoprolol succinate 25 mg tablet extended release 24 hr 25 mg PO DAILY Patient Comments: TAKE 1 TABLET BY MOUTH EVERY DAY atorvastatin 80 mg tablet 80 mg PO QHS [id number]-calcium-mins 1 EACH tablet 1 ea PO DAILY Patient Comments: vitamin omeprazole 40 MG capsule,delayed release(DR/EC) 40 mg PO DAILY diltiazem HCl 120 MG capsule 120 mg PO DAILY apixaban 5 MG tablet 5 mg PO BID furosemide 40 mg tablet 80 mg PO BID insulin lispro [Humalog KwikPen Insulin] 100 unit/mL Insulin Pen 50 unit subcut TIDAC Qty: 0 0RF albuterol sulfate 2.5 mg /3 mL (0.083 %) solution for nebulization 2.5 mg inhalation Q4H PRN (Reason: SOB) furosemide 20 mg tablet 20 mg PO PRN PRN (Reason: Edema) fenofibrate nanocrystallized 145 mg tablet 145 mg PO DAILY Jardiance 10 mg tablet 10 mg PO DAILY citalopram 20 mg tablet 20 mg PO DAILY Toujeo Max U-300 SoloStar 300 unit/mL (3 mL) insulin pen 104 unit SUBCUT BID lorazepam 0.5 mg tablet 0.5 mg PO Q12H PRN (Reason: anxiety) Patient Comments: Take one (1) tablet by mouth every 12 hours, as needed for anxiety. PALLIATIVE PATIENT nicotine 21 mg/24 hr patch 24 hour 1 patch topical Q24H Ozempic 1 mg/dose (4 mg/3 mL) pen injector 1 mg SUBCUT .1XW potassium chloride 20 mEq tablet,ER particles/crystals See Rx Instructions .ROUTE .COMPLEX Qty: 60 0RF Dose Instruction: TAKE 1 TABLET BY MOUTH TWICE A DAY Rx Instructions: TAKE 1 TABLET BY MOUTH TWICE A DAY Primary Care Provider: Tino Oreilly Referrals: Tino Oreilly MD [Primary Care Provider] - Disposition Disposition: Acute Care Hospital [facility]
--- NOTE | 2023-07-14 11:29 | RAD_ITS ---
STUDY: X-RAY CHEST REASON FOR EXAM: Female, 48 years old. Chest pain. Lower extremity edema. TECHNIQUE: Single AP portable view of the chest. COMPARISON: Comparison is made with prior study April 23, 2003. FINDINGS: Vascular congestion and mild CHF. There is no demonstrated pleural abnormality. There is moderate cardiac enlargement. Normal mediastinum and evi. Normal visualized pulmonary arteries. Normal visualized aortic arch and descending thoracic aorta. Normal visualized thoracic spine. Normal visualized ribs, clavicles, and shoulders. There is no demonstrated abnormality of the visualized soft tissue structures of the upper abdomen. RAD/Chest 1 View (Portable) IMPRESSION: Vascular congestion and mild CHF. Electronically Signed: Dylan Gan MD at 11:49 EDT ,
[2023-07-14] MEDS: Aspirin 81 MG TAB.CHEW 324 MG PO (11:46)
[2023-07-14] MEDS: fentaNYL 100 MCG/2 ML Ampul 25 MCG IV (13:07)
[2023-07-14 13:11] LABS: Absolute Lymphocyte Count 1.91 X10^3/uL (0.83-4.51); Absolute Neutrophil Count 6.1 X10^3/uL (2.0-7.7); Basophil# 0.05 X10^3/uL; Basophil% 0.6 % (0-1); Eosinophil# 0.16 X10^3/uL; Eosinophils% 1.8 % (0-5); Hematocrit 30.8 % (37-47); Hemoglobin 9.2 g/dL (12.0-15.0); Lymphocyte # 1.91 X10^3/ul (0.83-4.51); Lymphocyte % 21.4 % (19-41); Mean Corp Hgb Conc 29.9 g/dL (32-36); Mean Corpuscular Hgb 26.5 pg (27.0-32.0); Mean Corpuscular Volume 88.8 fL (81-99); Mean Platelet Vol. 9.2 fl (6.2-12.0); Monocyte% 4.5 % (0-10); NRBC Flagged by Analyzer 0.2 % (0-5); Neutrophil # 6.07 X10^3/uL (2.7-7.7); Neutrophil % 67.8 % (47-70); Platelet Count 317 K/mm3 (150-450); RBC Distribution Width CV 18.4 % (11.6-14.6); RBC Distribution Width SD 58.5 fl (35.1-43.9); Red Blood Count 3.47 M/mm3 (4.2-5.4); White Blood Count 8.9 K/mm3 (4.4-11.0)
[2023-07-14 13:28] LABS: Anion Gap 3 (5-15); BUN 19 mg/dL (7-18); BUN/Creat Ratio 17.9 RATIO (10-20); Chloride 101 mmol/L (98-107); Creatinine, Serum 1.06 mg/dL (0.55-1.02); EST Glomerular Filtration Rate 59 mL/min (>60); Est Glom Filt Rate - Afr Amer 72 mL/min (>60); Estimated Creatinine Clearance 59.67 ml/min; Glucose 223 mg/dL (74-106); Potassium 4.4 mmol/L (3.5-5.1); Sodium Level 140 mmol/L (136-145); Troponin-I HS (w/2H Reflex) 18 pg/mL (3.0-54.0)
[2023-07-14 13:33] LABS: BNP,B-Type NATRIURETIC PEPTIDE 40.4 pg/mL (0-100)
[2023-07-14 15:06] LABS: Reflex Troponin-HS? (from REC) Y
[2023-07-14] MEDS: Furosemide 40 MG/4 ML Vial IV ×2 (15:29→21:17)
[2023-07-14 15:40] LABS: Troponin-I HS 17 pg/mL (3.0-54.0)
[2023-07-14 16:31] LABS: Bedside Glucose 169 mg/dL (74-106)
--- NOTE | 2023-07-14 16:39 | HP.PCM.HOS_ITS ---
HPI - General General Date of Admission: 07/14/23 HPI Narrative MACARIO OVERTON, is a 48 F who presents with some slight chest pressure and feeling a little short of breath. She is also noted that she has gained some weight. She has had issues in the past with volume overload and has needed to be on Lasix drips. Currently her renal function is at baseline and her oxygen requirements are also at baseline. She states that she was recently hospitalized in [place] secondary to severe volume overload and had to be on dialysis for 2 days in order to get the fluid off. She does state that she follows a fluid restricted diet and a salt restricted diet as well. [facility] Medical History (Updated 07/14/23 @ 16:49 by Yani Mercado) Abscess Abscess of vulva Acute on chronic respiratory failure with hypoxia and hypercapnia KERRY (acute kidney injury) Anemia Anxiety Arthritis BiPAP (biphasic positive airway pressure) dependence BMI 60.0-69.9, adult Chronic diastolic (congestive) heart failure Chronic respiratory failure with hypoxia Congestive heart failure Contusion of knee, right COPD (chronic obstructive pulmonary disease) Depression Diabetes Dyspnea on exertion Essential hypertension GERD (gastroesophageal reflux disease) Hidradenitis History of diabetes mellitus History of left heart catheterization (LHC) (~01/05/19) History of MRSA infection Hyperglycemia due to type 2 diabetes mellitus Hyperlipidemia Hypertension Hypoxia Morbid obesity Morbid obesity Necrotizing soft tissue infection Non-healing open wound of left groin Non-smoker Noncompliance with CPAP treatment NSTEMI (non-ST elevated myocardial infarction) 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 Old myocardial infarction On home oxygen therapy Open wound of vulva with complication Opiate overdose Perianal abscess Pulmonary embolism Respiratory failure with hypoxia Restrictive lung disease secondary to obesity Sleep apnea Smoker Soft tissue abscess of inguinal region Tobacco abuse Type 2 diabetes mellitus Type 2 diabetes mellitus with hyperglycemia Venous stasis dermatitis of both lower extremities Home Medications multivit-iron 18 mg-folic acid 400 mcg-calcium 500 mg-minerals tablet 1 ea PO DAILY supplement 03/26/17 [History Last Taken 07/14/23] omeprazole 40 mg capsule,delayed release 40 mg PO DAILY GERD 12/15/18 [History Last Taken 07/14/23] loratadine 10 mg tablet 10 mg PO DAILY PRN Allergies 03/01/20 [History Last Taken 07/14/23] apixaban 5 mg tablet 5 mg PO BID blood thinner 08/20/20 [History Last Taken 07/14/23] diltiazem HCl 120 mg capsule,extended release 24 hr 120 mg PO DAILY heart rate 08/20/20 [History Last Taken 07/14/23] lisinopril 10 mg tablet 10 mg PO DAILY blood pressure 03/26/21 [History Last Taken 07/14/23] metformin 500 mg tablet,extended release 24 hr 2,000 mg PO DAILY diabetes [History Last Taken 07/14/23] metoprolol succinate 25 mg tablet,extended release 24 hr 25 mg PO DAILY blood pressure 03/26/21 [History Last Taken 07/14/23] atorvastatin 80 mg tablet 80 mg PO QHS cholesterol 02/07/22 [History Last Taken 07/14/23] furosemide 40 mg tablet 80 mg PO BID diuretic 09/22/22 [History Last Taken 07/14/23] insulin lispro 100 unit/mL subcutaneous pen (Humalog KwikPen (U-100) Insulin) 50 unit (0.5 mL) subcut TIDAC #0 mL 09/24/22 [Rx Last Taken 07/13/23] albuterol sulfate 2.5 mg/3 mL (0.083 %) solution for nebulization 2.5 mg inhalation Q4H PRN SOB 12/09/22 [History Last Taken 07/10/23] empagliflozin 10 mg tablet (Jardiance) 10 mg PO DAILY DM 12/09/22 [History Last Taken 04/23/23] fenofibrate nanocrystallized 145 mg tablet 145 mg PO DAILY CHOLESTEROL 12/09/22 [History Last Taken 07/14/23] furosemide 20 mg tablet 20 mg PO PRN PRN Edema 12/09/22 [History Last Taken Unknown] potassium chloride 20 mEq tablet,extended release(part/cryst) See Rx Instructions .Route .COMPLEX #60 TABLETS 06/20/23 [Rx Last Taken 07/14/23] citalopram 20 mg tablet 20 mg PO DAILY 07/14/23 [History Last Taken 07/14/23] insulin glargine U-300 conc 300 unit/mL (3 mL) subcutaneous pen (Toujeo Max U- 300 SoloStar) 104 unit subcut BID 07/14/23 [History Last Taken 07/13/23] lorazepam 0.5 mg tablet 0.5 mg PO Q12H PRN anxiety 07/14/23 [History Last Taken 07/13/23] nicotine 21 mg/24 hr daily transdermal patch 1 patch topical Q24H 07/14/23 [History Last Taken 07/13/23] semaglutide 1 mg/dose (4 mg/3 mL) subcutaneous pen injector (Ozempic) 1 mg subcut .1XW 07/14/23 [History Last Taken 07/13/23] Allergy/AdvReac Type Severity Reaction Status Date / Time cyclobenzaprine HCl Allergy Hives Verified 07/14/23 11:09 [From Flexeril] venlafaxine [From Effexor] AdvReac Severe unknown Verified 07/14/23 11:09 Family History Father CVA (cerebral vascular accident) Heart disease Diabetes Mother Thyroid disorder Surgical History H/O arthroscopic knee surgery History of delivery History of cholecystectomy Social History household members: none Smoking Status: Former smoker how long ago did patient quit smokin PPD smoker second hand exposure: Yes alcohol intake: never substance use type: does not use caffeine: Yes Type: carbonated beverages Number of servings: 1 and coffee Number of servings: 1 ROS Constitutional Constitutional: Denies chills, fatigue, fever(s) or malaise Eyes Eyes: Denies blurry vision ENT HEENT: Denies headache(s) or nasal discharge Cardiovascular Cardiovascular: Reports edema; Denies chest pain, dyspnea on exertion or syncope Respiratory/Chest Respiratory/Chest: Reports shortness of breath at rest; Denies cough or shortness of breath with exertion Gastrointestinal Gastrointestinal: Denies constipation, diarrhea, nausea or vomiting Genitourinary Genitourinary: Denies dysuria Neurologic Neurologic: Denies focal weakness, numbness or tremor(s) Psychiatric Psychiatric: Denies anxiety or depression Vital Signs Vital Signs Vital Signs: 07/14/23 11:09 07/14/23 11:39 07/14/23 11:39 Temperature 96.4 F L Temperature Source Temporal Pulse Rate 84 69 Respiratory Rate 22 H 12 Respiratory Effort Blood Pressure 165/83 H 155/73 H Blood Pressure Mean 110 100 Pulse Ox 93 95 94 Oxygen Delivery Method Room Air Nasal Cannula Nasal Cannula Oxygen Flow Rate (L/min) 5 5 5 07/14/23 11:40 07/14/23 13:09 07/14/23 13:13 Temperature 97.8 F Temperature Source Oral Pulse Rate 65 66 Respiratory Rate 14 13 Respiratory Effort Short of Breath Labored Blood Pressure 139/69 H 139/69 H Blood Pressure Mean 92 92 Pulse Ox 96 95 Oxygen Delivery Method Nasal Cannula Nasal Cannula Oxygen Flow Rate (L/min) 5 5 07/14/23 14:20 07/14/23 14:20 07/14/23 15:04 Temperature 97.9 F 97.9 F 98.1 F Temperature Source Oral Oral Oral Pulse Rate 69 68 67 Respiratory Rate 16 19 H 14 Respiratory Effort Blood Pressure 147/72 H 147/72 H 116/79 Blood Pressure Mean 97 97 91 Pulse Ox 94 94 94 Oxygen Delivery Method Nasal Cannula Nasal Cannula Nasal Cannula Oxygen Flow Rate (L/min) 5 5 5 07/14/23 15:04 07/14/23 16:16 07/14/23 16:19 Temperature 98.1 F 98.2 F Temperature Source Oral Oral Pulse Rate 66 73 68 Respiratory Rate 14 17 16 Respiratory Effort Blood Pressure 116/79 135/51 H 135/51 H Blood Pressure Mean 91 79 79 Pulse Ox 93 94 96 Oxygen Delivery Method Nasal Cannula Nasal Cannula Nasal Cannula Oxygen Flow Rate (L/min) 5 5 5 Weight Weight: 383 lb 6.142 oz Body Mass Index (BMI) 63.8 Physical Exam Narrative General: Alert, Oriented x3, Cooperative, No apparent distress HEENT: Atraumatic, PERRLA, EOMI, Normocephalic Oral: Moist Mucosa Neck: Supple, No JVD Lungs: Diminished, Normal air movement, No rhonchi, No wheeze, No rales Cardiovascular: Regular rate, Regular Rhythm, Normal S1, Normal S2, No murmurs, limited by body habitus Abdomen: Soft, Non Tender, Non-Distended, No Hepato-splenomegaly Extremities: Edema, Capillary Refill Less than 3 Seconds Skin: No rashes, No breakdown. Chronic venous stasis changes bilateral lower extremities Musculoskeletal: No Tenderness to Palpation of Joints or Extremities Neurological: Motor Exam 5/5 strength throughout, Sensory exam intact to light touch and pain Psych/Mental Status: Normal Affect, Appropriate Results Lab / Micro Data 07/14/23 13:03 07/14/23 13:03 Labs: Laboratory Results - last 24 hr 07/14/23 13:03: WBC 8.9, RBC 3.47 L, Hgb 9.2 L, Hct 30.8 L, MCV 88.8, MCH 26.5 L , MCHC 29.9 L, RDW Std Deviation 58.5 H, RDW Coeff of Darrion 18.4 H, Plt Count 317, MPV 9.2, Immature Gran % (Auto) 3.900 H, Neut % (Auto) 67.8, Lymph % (Auto) 21.4, [place] % (Auto) 4.5, Eos % (Auto) 1.8, Baso % (Auto) 0.6, Absolute Neuts (auto) 6.1, Absolute Lymphs (auto) 1.91, Nucleated RBC % 0.2, Sodium 140, Potassium 4.4, Chloride 101, Carbon Dioxide 36.0 H, Anion Gap 3 L, BUN 19 H, Creatinine 1.06 H, Estim Creat Clear Calc 59.67, Est GFR (MDRD) Af Amer 72, Est GFR (MDRD) Non-Af 59 L, BUN/Creatinine Ratio 17.9, Glucose 223 H, Calcium 9.0, Troponin I High Sens 18, B-Natriuretic Peptide 40.4 07/14/23 15:14: Troponin I High Sens 17 07/14/23 16:13: POC Glucose 169 H Radiology Impression Chest X-Ray 07/14/23 11:29 IMPRESSION: Vascular congestion and mild CHF. Electronically Signed: Dylan Gan MD at 11:49 EDT , Assessment & Plan Assessment/Plan (1) CHF (congestive heart failure): PLAN: Plan 1. Chronic hypoxic and hypercapnic respiratory failure/chronic diastolic CHF/HTN/HLD ? Given her symptoms will treat with 3 times daily IV Lasix despite being at baseline oxygen requirements ? Her home blood pressure medications can be resumed ? New with her home Lipitor ? Continue with CPAP 2. DM 2/morbid obesity ? We will reduce her insulin as we will be placing her on a calorie controlled diet ? Accu-Cheks ACHS ? Sliding scale insulin ? We will monitor and make adjustments as necessary ? BMI of 63.2, lifestyle modifications were discussed 3. Anxiety/depression ? Stable ? Continue with her home medic patient 4. GERD ? Stable ? Continue with PPI 5. History of PE ? Stable ? Continue with Eliquis DVT: Eliquis 75 minutes was spent on direct patient care, including documentation as well as chart review and collaboration with colleagues Charges/Coding Visit Charges Inpatient E&M: 20868 Init Hosp L3
[2023-07-14 18:29] LABS: Bedside Glucose 144 mg/dL (74-106)
[2023-07-14] MEDS: Potassium Chloride Oral Tablet 20 MEQ PO (21:16)
[2023-07-14] MEDS: APIXABAN 5 MG TABLET PO (21:16)
[2023-07-14] MEDS: Nystatin Powder 15gm Bottle 1 APPLIC TOPICAL (21:16)
[2023-07-14] MEDS: Atorvastatin Calcium 80 MG Tablet PO (21:16)
[2023-07-14] MEDS: Insulin Glargine-YFGN 100 UNIT/ML Pen 50 UNIT SC (21:17)
[2023-07-14] MEDS: Insulin Lispro 100 UNIT/ML INSULN.PEN SC (21:20)
[2023-07-14] MEDS: 0.9% Saline Lock 10 ML Syringe IV ×2 (21:30→22:42)
[2023-07-14 22:26] LABS: Bedside Glucose 217 mg/dL (74-106)
[2023-07-14] MEDS: Morphine 2 MG/ML Syringe IV (22:42)
[2023-07-15 03:57] VITALS: BMI 62.4
[2023-07-15 04:31] VITALS: BP 136/73; PULSE 69; RESP 18; TEMP 36.1; O2SAT 96
[2023-07-15] MEDS: 0.9% Saline Lock 10 ML Syringe IV (04:33)
[2023-07-15] MEDS: Morphine 2 MG/ML Syringe IV ×3 (04:33→12:30)
[2023-07-15] MEDS: Nystatin Powder 15gm Bottle 1 APPLIC TOPICAL (04:35)
[2023-07-15] MEDS: Furosemide 40 MG/4 ML Vial IV (04:36)
[2023-07-15 06:46] LABS: Absolute Lymphocyte Count 2.35 X10^3/uL (0.83-4.51); Absolute Neutrophil Count 7.4 X10^3/uL (2.0-7.7); Basophil# 0.09 X10^3/uL; Basophil% 0.8 % (0-1); Eosinophil# 0.23 X10^3/uL; Eosinophils% 2.1 % (0-5); Hematocrit 33.7 % (37-47); Hemoglobin 9.4 g/dL (12.0-15.0); Lymphocyte # 2.35 X10^3/ul (0.83-4.51); Lymphocyte % 21.4 % (19-41); Mean Corp Hgb Conc 27.9 g/dL (32-36); Mean Corpuscular Hgb 25.1 pg (27.0-32.0); Mean Corpuscular Volume 90.1 fL (81-99); Mean Platelet Vol. 9.5 fl (6.2-12.0); Monocyte# 0.49 X10^3/uL; Monocyte% 4.5 % (0-10); NRBC Flagged by Analyzer 0.4 % (0-5); Neutrophil # 7.35 X10^3/uL (2.7-7.7); Platelet Count 355 K/mm3 (150-450); RBC Distribution Width CV 18.6 % (11.6-14.6); RBC Distribution Width SD 59.6 fl (35.1-43.9); Red Blood Count 3.74 M/mm3 (4.2-5.4)
[2023-07-15 07:14] LABS: Anion Gap 4 (5-15); BUN 20 mg/dL (7-18); BUN/Creat Ratio 21.9 RATIO (10-20); Calcium,Total 9.3 mg/dL (8.5-10.1); Chloride 100 mmol/L (98-107); Creatinine, Serum 0.92 mg/dL (0.55-1.02); EST Glomerular Filtration Rate 70 mL/min (>60); Est Glom Filt Rate - Afr Amer 85 mL/min (>60); Estimated Creatinine Clearance 68.75 ml/min; Glucose 146 mg/dL (74-106); Potassium 4.3 mmol/L (3.5-5.1); Sodium Level 140 mmol/L (136-145)
[2023-07-15 07:28] VITALS: O2SAT 98
[2023-07-15] MEDS: Insulin Lispro 100 UNIT/ML INSULN.PEN 30 UNIT SC ×2 (08:24→12:26)
[2023-07-15] MEDS: Fenofibrate 145 MG Tablet PO (08:25)
[2023-07-15] MEDS: Insulin Lispro 100 UNIT/ML INSULN.PEN SC ×2 (08:25→12:26)
[2023-07-15] MEDS: dilTIAZem CD 120 MG Capsule PO (08:26)
[2023-07-15] MEDS: Citalopram 20 MG Tablet PO (08:26)
[2023-07-15] MEDS: APIXABAN 5 MG TABLET PO (08:26)
[2023-07-15] MEDS: Potassium Chloride Oral Tablet 20 MEQ PO (08:27)
[2023-07-15] MEDS: Empagliflozin 10 MG Tablet PO (08:27)
[2023-07-15] MEDS: Insulin Glargine-YFGN 100 UNIT/ML Pen 50 UNIT SC (08:27)
[2023-07-15] MEDS: Pantoprazole Sodium 40 MG Tablet PO (08:28)
[2023-07-15 08:29] VITALS: PULSE 85
[2023-07-15] MEDS: Metoprolol(XL)Succ 25 MG Tablet PO (08:29)
[2023-07-15] MEDS: Lisinopril 10 MG Tablet PO (08:29)
[2023-07-15 10:06] VITALS: BP 133/60; PULSE 70; RESP 20; TEMP 36.6; O2SAT 96
[2023-07-15 10:20] LABS: Bedside Glucose 191 mg/dL (74-106)
[2023-07-15 11:25] LABS: Bedside Glucose 167 mg/dL (74-106)
--- NOTE | 2023-07-15 12:03 | DS.PCM_ITS ---
Providers Date of Admission: 07/14/23 Date of Discharge: 07/15/23 Primary Care Physician: Dr. Tino Oreilly MD Reason For Visit: VOLUME OVERLOAD Diagnosis Discharge Diagnosis (1) CHF (congestive heart failure): Status: Acute Code(s): I50.9 - Heart failure, unspecified Medications at Discharge Home Medications multivit-iron 18 mg-folic acid 400 mcg-calcium 500 mg-minerals tablet 1 ea PO DAILY supplement 03/26/17 omeprazole 40 mg capsule,delayed release 40 mg PO DAILY GERD 12/15/18 loratadine 10 mg tablet 10 mg PO DAILY PRN Allergies 03/01/20 apixaban 5 mg tablet 5 mg PO BID blood thinner 08/20/20 diltiazem HCl 120 mg capsule,extended release 24 hr 120 mg PO DAILY heart rate 08/20/20 lisinopril 10 mg tablet 10 mg PO DAILY blood pressure 03/26/21 metformin 500 mg tablet,extended release 24 hr 2,000 mg PO DAILY diabetes 03/26/21 metoprolol succinate 25 mg tablet,extended release 24 hr 25 mg PO DAILY blood pressure 03/26/21 atorvastatin 80 mg tablet 80 mg PO QHS cholesterol 02/07/22 furosemide 40 mg tablet 80 mg PO BID diuretic 09/22/22 insulin lispro 100 unit/mL subcutaneous pen (Humalog KwikPen (U-100) Insulin) 50 unit (0.5 mL) subcut TIDAC #0 mL 09/24/22 albuterol sulfate 2.5 mg/3 mL (0.083 %) solution for nebulization 2.5 mg inhalation Q4H PRN SOB 12/09/22 empagliflozin 10 mg tablet (Jardiance) 10 mg PO DAILY DM 12/09/22 fenofibrate nanocrystallized 145 mg tablet 145 mg PO DAILY CHOLESTEROL 12/09/22 furosemide 20 mg tablet 20 mg PO PRN PRN Edema 12/09/22 potassium chloride 20 mEq tablet,extended release(part/cryst) See Rx Instructions .Route .COMPLEX #60 TABLETS 06/20/23 citalopram 20 mg tablet 20 mg PO DAILY 07/14/23 insulin glargine U-300 conc 300 unit/mL (3 mL) subcutaneous pen (Toujeo Max U- 300 SoloStar) 104 unit subcut BID 07/14/23 lorazepam 0.5 mg tablet 0.5 mg PO Q12H PRN anxiety 07/14/23 nicotine 21 mg/24 hr daily transdermal patch 1 patch topical Q24H 07/14/23 semaglutide 1 mg/dose (4 mg/3 mL) subcutaneous pen injector (Ozempic) 1 mg subcut .1XW 07/14/23 metolazone 2.5 mg tablet 2.5 mg PO .every / #8 tabs 07/15/23 Hospital Course Operations None Procedures EKG and - (Chest x-ray) Summary of Care Provided Minutes Spent on Discharge: 28 Hospital Course: Ms. Wallace is a 48-year-old female with chronic hypoxic and hypercapnic respiratory failure who presented to the emergency department on 07/14/2023 with feeling more short of breath, having more lower extremity swelling and some slight chest pressure with no pain. She noted that she had gained some weight. She is well-known to this facility and has previously had been admitted for Lasix drips and extended hospitalizations. She reported that she wanted to present this time before she got to severe and had to have an extended hospitalization. Her renal function and oxygen requirements at admission were at baseline. She indicated she was recently in [place] visiting her mother and had to be hospitalized and intubated in dialysis to get extra fluid off for severe volume overload. She indicated she was following a fluid and salt restricted diet. She is on Lasix 80 mg p.o. twice daily. She had a recent echocardiogram on 04/24/2023 that showed an EF of 55% and pulmonary systolic pressure of 30 mmHg. Her vital signs were essentially unremarkable on her baseline oxygen at the time of admission. Her CBC showed a chronic stable anemia but she had a normal white count with no left shift indicative of infection. Her chemistry panel was unremarkable. Troponins were cycled and normal x3. Her BNP was 40.4. Her chest x-ray showed mild vascular congestion/CHF. EKG was unremarkable. She was admitted to the PCU and placed on IV Lasix overnight. By the a.m. of 07/15/2023 the patient states she felt much better and was back to her baseline and would like to go home. We discussed the importance of monitoring her fluid intake and sodium intake. She acknowledged this and states that she has been trying. We will maintain her on her home Lasix dose and I will add metolazone 2.5 mg twice weekly on Friday and to see if this helps keep volume off. This may need to be titrated up but will allow outpatient follow-up to see if this needs to be increased. She will need a basic metabolic profile to be done in about 1 to 2 weeks to assess her electrolytes with the addition of the biweekly metolazone. She will maintain her home oxygen supplementation I have asked her to follow-up with pulmonary medicine in the next month if able as she has missed her last appointment with them. She will seem to follow-up with her primary care physician within the next 1 to 2 weeks. She was discharged home in stable condition on her baseline oxygen with the addition of metolazone on 07/15/2023. Discharge diagnoses: Shortness of breath-resolved Chest pain-resolved Edema-return to baseline Chronic hypoxic and hypercapnic respiratory failure Acute on chronic diastolic and right-sided heart failure DM-2 Chronic anemia GERD History of PE Diabetic neuropathy LOGAN Obesity hypoventilation syndrome Hyperlipidemia Depression Hypertension Tobacco abuse Physical Exam Narrative Patient states she is feeling much better with diuresis and she states that she is back to her baseline. She states her swelling is better and she has no breathing difficulties at this point. Chest heaviness is resolved. Const alert, oriented x3, no apparent distress, no limitations and well nourished; Negative for average body habitus or healthy appearing Constitutional Narrative: Morbidly obese, middle-aged, white female, sitting up in a chair at the bedside, appears comfortable and nontoxic, on her baseline oxygen General Appearance: cooperative, comfortable, well kempt and well developed Orientation / Consciousness: awake, oriented to person, oriented to place and oriented to time Exam Limitations: no limitations Nutritional Appearance: morbidly obese HEENT normocephalic, head/scalp atraumatic, hearing grossly normal bilaterally and moist oral mucous membranes HEENT Narrative: Mallampati 4, no thrush Resp normal respiratory effort, no retractions, no use of accessory muscles and clear to auscultation bilaterally Resp Narrative: Diminished diffusely but clear with no crackles Auscultation: Negative for rales, rhonchi or wheezes Cardio regular rate, regular rhythm, S1 normal heart sound, S2 normal heart sound, no murmurs, no rub, no gallops and no clicks GI normal to inspection, nondistended, normoactive bowel sounds, soft to palpation and non-tender GI Narrative: Large protuberant abdomen Extremity Extremity Narrative: 1+ bilateral pitting edema with skin changes consistent with venous stasis, no clubbing or cyanosis Neuro oriented x3, moves all extremities and no focal motor deficits Speech: speech normal Psych affect normal Psych Narrative: Eye contact is good and patient is very pleasant Weight / BMI Weight Weight: 170.3 kg Body Mass Index (BMI) 62.4 ABG / Lab / Microbiology Data 07/15/23 06:15 07/15/23 06:15 Laboratory: Laboratory Results - last 24 hr 07/14/23 13:03: WBC 8.9, RBC 3.47 L, Hgb 9.2 L, Hct 30.8 L, MCV 88.8, MCH 26.5 L , MCHC 29.9 L, RDW Std Deviation 58.5 H, RDW Coeff of Darrion 18.4 H, Plt Count 317, MPV 9.2, Immature Gran % (Auto) 3.900 H, Neut % (Auto) 67.8, Lymph % (Auto) 21.4, Taylor % (Auto) 4.5, Eos % (Auto) 1.8, Baso % (Auto) 0.6, Absolute Neuts (auto) 6.1, Absolute Lymphs (auto) 1.91, Nucleated RBC % 0.2, Sodium 140, Potassium 4.4, Chloride 101, Carbon Dioxide 36.0 H, Anion Gap 3 L, BUN 19 H, Creatinine 1.06 H, Estim Creat Clear Calc 59.67, Est GFR (MDRD) Af Amer 72, Est GFR (MDRD) Non-Af 59 L, BUN/Creatinine Ratio 17.9, Glucose 223 H, Calcium 9.0, Troponin I High Sens 18, B-Natriuretic Peptide 40.4 07/14/23 15:14: Troponin I High Sens 17 07/14/23 16:13: POC Glucose 169 H 07/14/23 18:09: POC Glucose 144 H 07/14/23 21:12: POC Glucose 217 H 07/15/23 06:15: WBC 11.0, RBC 3.74 L, Hgb 9.4 L, Hct 33.7 L, MCV 90.1, MCH 25.1 L, MCHC 27.9 L D, RDW Std Deviation 59.6 H, RDW Coeff of Darrion 18.6 H, Plt Count 355, MPV 9.5, Immature Gran % (Auto) 4.200 H, Neut % (Auto) 67.0, Lymph % (Auto) 21.4, Taylor % (Auto) 4.5, Eos % (Auto) 2.1, Baso % (Auto) 0.8, Absolute Neuts (auto) 7.4, Absolute Lymphs (auto) 2.35, Nucleated RBC % 0.4, Sodium 140, Potassium 4.3, Chloride 100, Carbon Dioxide 36.0 H, Anion Gap 4 L, BUN 20 H, Creatinine 0.92, Estim Creat Clear Calc 68.75, Est GFR (MDRD) Af Amer 85, Est GFR (MDRD) Non-Af 70, BUN/Creatinine Ratio 21.9 H, Glucose 146 H, Calcium 9.3 07/15/23 08:22: POC Glucose 191 H 07/15/23 11:08: POC Glucose 167 H D/C Instructions Discharge Diet: Low fat / Low cholesterol, 1800 Calorie Control Diet, 8 Cup Fluid Restriction and 2000 mg Sodium Diet Discharge Activity: Return to Normal Activity Meaningful Use Info Meaningful Use Diagnoses (Choose all that apply): None applicable Discharge Plan Admission Admit Date/Time: 07/14/23 16:31 Primary Reason for Your Visit: Shortness of Breath and Edema Attending Provider: Belem Aponte Primary Care Provider: Tino Oreilly Consulting Providers: Liam Wilkes Instructions Additional Instructions / Restrictions: 1. If you start to notice that lying increases okay to take an extra 40 mg dose of Lasix in a 24-hour period 2. Strictly continue to monitor fluid intake to 1.5 to 2 L daily and monitor salt intake for 2 g or less daily Discharge Orders/Prescriptions Prescriptions: New metolazone 2.5 mg tablet 2.5 mg PO .every / Qty: 8 1RF Continued loratadine 10 mg tablet 10 mg PO DAILY PRN (Reason: Allergies) lisinopril 10 mg tablet 10 mg PO DAILY Patient Comments: TAKE 1 TABLET BY MOUTH EVERY DAY metformin 500 mg tablet extended release 24 hr 2,000 mg PO DAILY metoprolol succinate 25 mg tablet extended release 24 hr 25 mg PO DAILY Patient Comments: TAKE 1 TABLET BY MOUTH EVERY DAY atorvastatin 80 mg tablet 80 mg PO QHS tpoclavk-llrm-SU-calcium-mins 1 EACH tablet 1 ea PO DAILY Patient Comments: vitamin omeprazole 40 MG capsule,delayed release(DR/EC) 40 mg PO DAILY diltiazem HCl 120 MG capsule 120 mg PO DAILY apixaban 5 MG tablet 5 mg PO BID furosemide 40 mg tablet 80 mg PO BID insulin lispro [Humalog KwikPen Insulin] 100 unit/mL Insulin Pen 50 unit subcut TIDAC Qty: 0 0RF albuterol sulfate 2.5 mg /3 mL (0.083 %) solution for nebulization 2.5 mg inhalation Q4H PRN (Reason: SOB) furosemide 20 mg tablet 20 mg PO PRN PRN (Reason: Edema) fenofibrate nanocrystallized 145 mg tablet 145 mg PO DAILY Jardiance 10 mg tablet 10 mg PO DAILY citalopram 20 mg tablet 20 mg PO DAILY Toujeo Max U-300 SoloStar 300 unit/mL (3 mL) insulin pen 104 unit SUBCUT BID lorazepam 0.5 mg tablet 0.5 mg PO Q12H PRN (Reason: anxiety) Patient Comments: Take one (1) tablet by mouth every 12 hours, as needed for anxiety. PALLIATIVE PATIENT nicotine 21 mg/24 hr patch 24 hour 1 patch topical Q24H Ozempic 1 mg/dose (4 mg/3 mL) pen injector 1 mg SUBCUT .1XW potassium chloride 20 mEq tablet,ER particles/crystals See Rx Instructions .ROUTE .COMPLEX Qty: 60 0RF Dose Instruction: TAKE 1 TABLET BY MOUTH TWICE A DAY Rx Instructions: TAKE 1 TABLET BY MOUTH TWICE A DAY Referrals / Follow Up: Tino Oreilly MD [Primary Care Provider] - Within 2 Weeks Nelly Hunter NP, [employer] SITE PROPERTY MANAGER-C [Med Staff - Adv Practice Prof] - Within 1 Month (call for appt) Disposition Disposition (needs filled in before D/C Order can be placed): Home, Self Care Charges/Coding Visit Charges Inpatient E&M: 38772 Disch Hosp
[2023-07-15 13:24] VITALS: O2SAT 94; O2SAT 96
--- NOTE | 2023-07-15 13:42 | PHA.DC_ITS ---
Pharmacy [facility] Pharmacy Service has performed discharge medication reconciliation and counseling for this patient. 1. METOLAZONE 2.5MG PO DAILY ON TUESDAYS AND THURSDAYS The patient's discharge medication list was reviewed for discrepancies and discrepancies were resolved. The patient was counseled on the following discharge medications and changes in medications for homegoing were reviewed. The Reason for Use, instructions for use, and potential side effects were reviewed for all new medications. The patient's questions regarding all of their medications were answered. The patient was able to verbally demonstrate an understanding of their discharge medications. Patient counseled by pharmacy directorMaya. Medications at Discharge Home Medications multivit-iron 18 mg-folic acid 400 mcg-calcium 500 mg-minerals tablet 1 ea PO DAILY supplement 03/26/17 omeprazole 40 mg capsule,delayed release 40 mg PO DAILY GERD 12/15/18 loratadine 10 mg tablet 10 mg PO DAILY PRN Allergies 03/01/20 apixaban 5 mg tablet 5 mg PO BID blood thinner 08/20/20 diltiazem HCl 120 mg capsule,extended release 24 hr 120 mg PO DAILY heart rate 08/20/20 lisinopril 10 mg tablet 10 mg PO DAILY blood pressure 03/26/21 metformin 500 mg tablet,extended release 24 hr 2,000 mg PO DAILY diabetes 03/26/21 metoprolol succinate 25 mg tablet,extended release 24 hr 25 mg PO DAILY blood pressure 03/26/21 atorvastatin 80 mg tablet 80 mg PO QHS cholesterol 02/07/22 furosemide 40 mg tablet 80 mg PO BID diuretic 09/22/22 insulin lispro 100 unit/mL subcutaneous pen (Humalog KwikPen (U-100) Insulin) 50 unit (0.5 mL) subcut TIDAC #0 mL 09/24/22 albuterol sulfate 2.5 mg/3 mL (0.083 %) solution for nebulization 2.5 mg inhalation Q4H PRN SOB 12/09/22 empagliflozin 10 mg tablet (Jardiance) 10 mg PO DAILY DM 12/09/22 fenofibrate nanocrystallized 145 mg tablet 145 mg PO DAILY CHOLESTEROL 12/09/22 furosemide 20 mg tablet 20 mg PO PRN PRN Edema 12/09/22 potassium chloride 20 mEq tablet,extended release(part/cryst) See Rx Instructions .Route .COMPLEX supplement #60 TABLETS 06/20/23 citalopram 20 mg tablet 20 mg PO DAILY mental health 07/14/23 insulin glargine U-300 conc 300 unit/mL (3 mL) subcutaneous pen (Toujeo Max U- 300 SoloStar) 104 unit subcut BID diabetes 07/14/23 lorazepam 0.5 mg tablet 0.5 mg PO Q12H PRN anxiety 07/14/23 nicotine 21 mg/24 hr daily transdermal patch 1 patch topical Q24H quit smoking 07/14/23 semaglutide 1 mg/dose (4 mg/3 mL) subcutaneous pen injector (Ozempic) 1 mg subcut .1XW diabetes 07/14/23 metolazone 2.5 mg tablet 2.5 mg PO .every /th #8 tabs 07/15/23
--- NOTE | 2023-07-15 14:32 | CASEMGMT ---
Patient has order for discharge. RN CM in to inquire about needs at discharge. Patient denies needs at discharge. Patient had no further questions or concerns at this time.
--- NOTE | 2023-07-15 14:39 | CHAPLAIN ---
Type of Pastoral Visit _x__ Initial Visit ___ Follow-up Visit ___ On-call Visit ___ General Patient Visit ___ Spiritual Assessment ___ Family Conference ___ Bereavement ___ Rapid Response ___ Code Blue ___ Other (describe below) Pastoral Care Referral From _x__ Patient ___ Family ___ Nurse ___ Physician ___ Brick Siding Applicator ___ Chute Boss ___ Other (describe below) Sacrament/Intervention _x__ Active listening ___ Anointing ___ Episcopalian ___ Bereavement ___ Communion _x__ Maki exploration ___ ___ Life review _x__ Prayer ___ Reconciliation ___ Sacrament of Sick _x__ Supportive presence ___ Wedding ___ Other (describe below) Pastoral Comments patient reports good improvement and knowing this time when to come in sooner; pt expects to go home; pt states that her motivator is her two grandchildren; pt has a maki connection with the [employer] adventism and seeks prayer for support; pt goal is to have improved health; no other needs or concerns at this time
== END 2023-07-15 12:07 | disposition home or self-care (01) ==
LOC: ED 14:50 → PCU 15:24
PROVIDERS: Admitting Provider Family Medicine; Emergency Provider Emergency Medicine; PCP Family Medicine; Visit Provider Internal Medicine
DX: I11.0 Hypertensive heart disease with heart failure (principal); J44.9 Chronic obstructive pulmonary disease, unspecified; I50.32 Chronic diastolic (congestive) heart failure; J96.22 Acute and chronic respiratory failure with hypercapnia; E66.2 Morbid (severe) obesity with alveolar hypoventilation; Z68.44 Body mass index [BMI] 60.0-69.9, adult; Z79.4 Long term (current) use of insulin; E11.9 Type 2 diabetes mellitus without complications; E78.5 Hyperlipidemia, unspecified; Z87.891 Personal history of nicotine dependence; K21.9 Gastro-esophageal reflux disease without esophagitis; F32.A Depression, unspecified; Z79.899 Other long term (current) drug therapy; Z79.01 Long term (current) use of anticoagulants; Z79.84 Long term (current) use of oral hypoglycemic drugs; G47.33 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 (adult) (pediatric); Z86.711 Personal history of pulmonary embolism; I25.2 Old myocardial infarction
CPT/HCPCS: 36415; 71045; 80048; 82962; 83880; 84484; 85025; 93005; 96374; 96375; 96376; 97802; 99221; 99285; A4216; G0378; J1940

== ENCOUNTER → 2023-09-18 | Outpatient (CLI) | payer MEDICARE, MEDICAID, SELFPAY ==
[2023-09-18 17:42] LABS: Absolute Lymphocyte Count 2.67 X10^3/uL (0.83-4.51); Absolute Neutrophil Count 8.7 X10^3/uL (2.0-7.7); Basophil# 0.08 X10^3/uL; Basophil% 0.7 % (0-1); Eosinophil# 0.31 X10^3/uL; Eosinophils% 2.5 % (0-5); Hematocrit 36.8 % (37-47); Lymphocyte # 2.67 X10^3/ul (0.83-4.51); Lymphocyte % 21.9 % (19-41); Mean Corp Hgb Conc 29.9 g/dL (32-36); Mean Corpuscular Hgb 26.1 pg (27.0-32.0); Mean Corpuscular Volume 87.4 fL (81-99); Mean Platelet Vol. 10.6 fl (6.2-12.0); Monocyte# 0.34 X10^3/uL; Monocyte% 2.8 % (0-10); NRBC Flagged by Analyzer 0 % (0-5); Neutrophil % 71.3 % (47-70); Platelet Count 325 K/mm3 (150-450); RBC Distribution Width CV 14.2 % (11.6-14.6); RBC Distribution Width SD 45.4 fl (35.1-43.9); Red Blood Count 4.21 M/mm3 (4.2-5.4); White Blood Count 12.2 K/mm3 (4.4-11.0)
[2023-09-18 18:00] LABS: Vitamin D,25 Hydroxy 28.3 ng/mL
[2023-09-18 18:21] LABS: ALB/GLOB Ratio 0.7 RATIO (0.9-2.4); AST(SGOT) 16 U/L (15-37); Alanine Aminotransfer ALT/SGPT 27 U/L (13-56); Albumin, Serum 3.3 g/dL (3.2-5.0); Alkaline Phosphatase 78 U/L (45-117); Anion Gap 5 (5-15); BUN 14 mg/dL (7-18); BUN/Creat Ratio 17.1 RATIO (10-20); Calcium,Total 9.3 mg/dL (8.5-10.1); Chloride 95 mmol/L (98-107); Cholesterol 126 mg/dL (200); Creatinine, Serum 0.82 mg/dL (0.55-1.02); EST Glomerular Filtration Rate 80 mL/min (>60); Est Glom Filt Rate - Afr Amer 97 mL/min (>60); Globulin 4.5 g/dL (2.2-4.2); Glucose 269 mg/dL (74-106); High Density Lipoprotein 38 mg/dL; Protein, Total 7.8 g/dL (6.4-8.2); Sodium Level 134 mmol/L (136-145); Thyroid Stim Hormone (TSH) 4.02 uIU/mL (0.358-3.74); Triglycerides 189 mg/dL; Very Low Density Lipoprotein 38 mg/dL (5-40)
[2023-09-18 19:03] LABS: Hemoglobin A1c 9.6 % (3.8-5.6)
== END | disposition home or self-care (01) ==
LOC: MFPLAB 15:33
PROVIDERS: PCP Family Medicine; Visit Provider Family Medicine
DX: I10 Essential (primary) hypertension (principal); E11.9 Type 2 diabetes mellitus without complications; E78.2 Mixed hyperlipidemia
CPT/HCPCS: 36415; 80053; 80061; 82306; 83036; 84443; 85025

== ENCOUNTER → 2023-09-25 | Outpatient (CLI) | payer MEDICARE, MEDICAID, SELFPAY ==
[2023-09-25 13:12] LABS: Vitamin B12 323 pg/mL (211-911)
[2023-09-25 13:59] LABS: Ferritin 41 ng/mL (8-252); Iron 40 ug/dL (50-170); Iron Binding Capacity,Total 450 ug/dL (250-450); PERCENT IRON SATURATION 8.9 % (15.0-55.0)
== END | disposition home or self-care (01) ==
LOC: MFPLAB 11:24
PROVIDERS: PCP Family Medicine; Visit Provider Family Medicine
DX: D64.9 Anemia, unspecified (principal)
CPT/HCPCS: 36415; 82607; 82728; 82746; 83540; 83550

== ENCOUNTER → 2023-10-14 | Outpatient (CLI) | payer MEDICARE, MEDICAID, SELFPAY ==
--- NOTE | 2023-10-14 13:08 | US_ITS ---
INDICATION: Large, firm lump under chin EXAMINATION: Ultrasound US Thyroid (eg thyroid, parathyroid, parotid) TECHNIQUE: Dasilva scale and color doppler imaging was performed of the thyroid gland. COMPARISON: No relevant prior comparison study available FINDINGS: RIGHT THYROID LOBE: 5.5 x 1.7 x 1.7 cm. The echotexture is heterogenous. [No thyroid nodules are present. LEFT THYROID LOBE: 4.4 x 1.6 x 1.3 cm. The echotexture is heterogenous. [No thyroid nodules are present. ISTHMUS: 0.4 cm. No thyroid nodules are present. In the region of concern, superior to the thyroid gland there is a 5.3 x 3.3 x 4.7 cm hyperechoic round ill-defined focus with increased vascularity. US/Thyroid IMPRESSION: Enlarged and heterogenous thyroid gland may be secondary to thyroiditis. Indeterminant 5.3 x 5.7 x 3.3 cm ill-defined soft tissue focus, within the region of concern, superior to the thyroid gland, may reflect an abnormal lymph node, a mass or possible ectopic thyroid tissue, recommend a CT or MRI of the neck with contrast for further characterization. Electronically Signed: Vianey Golden MD at 14:39 EST ,
== END | disposition home or self-care (01) ==
PROVIDERS: PCP Family Medicine; Visit Provider Family Medicine
DX: E04.9 Nontoxic goiter, unspecified (principal)
CPT/HCPCS: 76536

== ENCOUNTER → 2024-01-02 | Outpatient (CLI) | payer MEDICARE, MEDICAID, SELFPAY ==
[2024-01-02 13:37] LABS: CREATININE FINGERSTICK < 1.0 mg/dL (0.55-1.02); EGFR FINGERSTICK > 60.0000 mL/min (>60)
== END | disposition home or self-care (01) ==
LOC: MRI 12:40
PROVIDERS: PCP Family Medicine; Referring Provider Family Medicine; Visit Provider Family Medicine
DX: E07.9 Disorder of thyroid, unspecified (principal)

== ENCOUNTER 2024-01-14 22:27 | Emergency (ER) | payer MEDICARE, MEDICAID, SELFPAY ==
[2024-01-14 22:27] VITALS: BP 107/44; PULSE 92; RESP 20; TEMP 36.3; O2SAT 91
[2024-01-14 22:43] VITALS: BMI 59.9
--- NOTE | 2024-01-14 23:13 | RAD_ITS ---
INDICATION: dyspnea EXAMINATION/TECHNIQUE: X-RAY - XR Chest 2 Views COMPARISON: 07/14/2023 FINDINGS: LINES/DEVICES: None. LUNGS: No consolidation. No pneumothorax. MEDIASTINUM: Unremarkable. CARDIAC SILHOUETTE: Not enlarged. BONES AND SOFT TISSUES: No acute abnormalities. RAD/Chest PA and Lateral IMPRESSION: No evidence of active intrathoracic disease. Electronically Signed: Laurel Ni MD at 23:51 EST ,
[2024-01-14] MEDS: Morphine 4 MG/ML Syringe IV (23:20)
[2024-01-14] MEDS: Ondansetron 4 MG/2 ML Vial IV (23:20)
[2024-01-14 23:21] LABS: Absolute Lymphocyte Count 3.13 X10^3/uL (0.83-4.51); Absolute Neutrophil Count 9.1 X10^3/uL (2.0-7.7); Basophil# 0.11 X10^3/uL; Basophil% 0.8 % (0-1); Eosinophil# 0.27 X10^3/uL; Eosinophils% 2.1 % (0-5); Hematocrit 36.5 % (37-47); Hemoglobin 11.2 g/dL (12.0-15.0); Lymphocyte # 3.13 X10^3/ul (0.83-4.51); Lymphocyte % 23.8 % (19-41); Mean Corp Hgb Conc 30.7 g/dL (32-36); Mean Corpuscular Hgb 27.4 pg (27.0-32.0); Mean Corpuscular Volume 89.2 fL (81-99); Mean Platelet Vol. 10.3 fl (6.2-12.0); Monocyte# 0.47 X10^3/uL; Monocyte% 3.6 % (0-10); NRBC Flagged by Analyzer 0 % (0-5); Neutrophil # 9.05 X10^3/uL (2.7-7.7); Neutrophil % 68.8 % (47-70); Platelet Count 317 K/mm3 (150-450); RBC Distribution Width CV 14.7 % (11.6-14.6); RBC Distribution Width SD 47.5 fl (35.1-43.9); Red Blood Count 4.09 M/mm3 (4.2-5.4); White Blood Count 13.2 K/mm3 (4.4-11.0)
[2024-01-14 23:36] LABS: Anion Gap 7 (5-15); BUN 26 mg/dL (7-18); BUN/Creat Ratio 22.8 RATIO (10-20); Calcium,Total 8.8 mg/dL (8.5-10.1); Chloride 100 mmol/L (98-107); Creatinine, Serum 1.14 mg/dL (0.55-1.02); EST Glomerular Filtration Rate 54 mL/min (>60); Est Glom Filt Rate - Afr Amer 66 mL/min (>60); Estimated Creatinine Clearance 96.92 ml/min; Glucose 232 mg/dL (74-106); Potassium 3.7 mmol/L (3.5-5.1); Sodium Level 140 mmol/L (136-145)
[2024-01-14] MEDS: Piperacil/Tazobactam 3.375 GM in 0.9% Normal Saline (50mL MB+) 50 ML IV (23:41)
[2024-01-14 23:46] LABS: BNP,B-Type NATRIURETIC PEPTIDE 3.8 pg/mL (0-100)
--- NOTE | 2024-01-15 00:12 | EDS_ITS ---
HPI History of Present Illness Chief Complaint: Cellulitis Informant: patient Narrative Narrative: Patient is a 48-year-old female with past medical history of morbid obesity type 2 diabetes and chronic diastolic heart failure. She reports that over the past few days she feels like her legs have been more swollen than normal. She states she has been feeling increased shortness of breath and increase her oxygen 4 L to 5 L. She states that she weighed herself and she had increased by a few pounds. She also notices increased redness to her lower legs. She does have concern for developing infection and potential fluid overload and therefore comes in for evaluation. [facility] Medical History (Updated 01/15/24 @ 00:[address] Eulogio Jiang, DO) Abscess Abscess of vulva Acute on chronic respiratory failure with hypoxia and hypercapnia KERRY (acute kidney injury) Anemia Anxiety Arthritis BiPAP (biphasic positive airway pressure) dependence BMI 60.0-69.9, adult CHF (congestive heart failure) Chronic diastolic (congestive) heart failure Chronic respiratory failure with hypoxia Congestive heart failure Contusion of knee, right COPD (chronic obstructive pulmonary disease) Depression Diabetes Dyspnea on exertion Essential hypertension GERD (gastroesophageal reflux disease) Hidradenitis History of diabetes mellitus History of left heart catheterization (LHC) (~01/05/19) History of MRSA infection Hyperglycemia due to type 2 diabetes mellitus Hyperlipidemia Hypertension Hypoxia Morbid obesity Morbid obesity Necrotizing soft tissue infection Non-healing open wound of left groin Non-smoker Noncompliance with CPAP treatment NSTEMI (non-ST elevated myocardial infarction) 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 Old myocardial infarction On home oxygen therapy Open wound of vulva with complication Opiate overdose Perianal abscess Pulmonary embolism Respiratory failure with hypoxia Restrictive lung disease secondary to obesity Sleep apnea Smoker Soft tissue abscess of inguinal region Tobacco abuse Type 2 diabetes mellitus Type 2 diabetes mellitus with hyperglycemia Venous stasis dermatitis of both lower extremities Home Medications multivit-iron 18 mg-folic acid 400 mcg-calcium 500 mg-minerals tablet 1 ea PO DAILY supplement 03/26/17 [History Last Taken 07/14/23] omeprazole 40 mg capsule,delayed release 40 mg PO DAILY GERD 12/15/18 [History Last Taken 07/14/23] loratadine 10 mg tablet 10 mg PO DAILY PRN Allergies 03/01/20 [History Last Taken 07/14/23] apixaban 5 mg tablet 5 mg PO BID blood thinner 08/20/20 [History Last Taken 07/14/23] diltiazem HCl 120 mg capsule,extended release 24 hr 120 mg PO DAILY heart rate 08/20/20 [History Last Taken 07/14/23] lisinopril 10 mg tablet 10 mg PO DAILY blood pressure 03/26/21 [History Last Taken 07/14/23] metformin 500 mg tablet,extended release 24 hr 2,000 mg PO DAILY diabetes 03/26/21 [History Last Taken 07/14/23] metoprolol succinate 25 mg tablet,extended release 24 hr 25 mg PO DAILY blood pressure 03/26/21 [History Last Taken 07/14/23] atorvastatin 80 mg tablet 80 mg PO QHS cholesterol 02/07/22 [History Last Taken 07/14/23] furosemide 40 mg tablet 80 mg PO BID diuretic 09/22/22 [History Last Taken 07/14/23] insulin lispro 100 unit/mL subcutaneous pen (Humalog KwikPen (U-100) Insulin) 50 unit (0.5 mL) subcut TIDAC #0 mL 09/24/22 [Rx Last Taken 07/13/23] albuterol sulfate 2.5 mg/3 mL (0.083 %) solution for nebulization 2.5 mg inhalation Q4H PRN SOB 12/09/22 [History Last Taken 07/10/23] empagliflozin 10 mg tablet (Jardiance) 10 mg PO DAILY DM 12/09/22 [History Last Taken 04/23/23] fenofibrate nanocrystallized 145 mg tablet 145 mg PO DAILY CHOLESTEROL 12/09/22 [History Last Taken 07/14/23] furosemide 20 mg tablet 20 mg PO PRN PRN Edema 12/09/22 [History Last Taken Unknown] citalopram 20 mg tablet 20 mg PO DAILY mental health 07/14/23 [History Last Taken 07/14/23] insulin glargine U-300 conc 300 unit/mL (3 mL) subcutaneous pen (Toujeo Max U- 300 SoloStar) 104 unit subcut BID diabetes 07/14/23 [History Last Taken 07/13/23] lorazepam 0.5 mg tablet 0.5 mg PO Q12H PRN anxiety 07/14/23 [History Last Taken 07/13/23] nicotine 21 mg/24 hr daily transdermal patch 1 patch topical Q24H quit smoking 07/14/23 [History Last Taken 07/13/23] semaglutide 1 mg/dose (4 mg/3 mL) subcutaneous pen injector (Ozempic) 1 mg subcut .1XW diabetes 07/14/23 [History Last Taken 07/13/23] metolazone 2.5 mg tablet 2.5 mg PO .every /thurs #8 tabs 07/15/23 [Rx Last Taken Unknown] potassium chloride 20 mEq tablet,extended release(part/cryst) See Rx Instructions .Route .COMPLEX #60 TABLETS 08/14/23 [Rx Last Taken Unknown] amoxicillin 875 mg-potassium clavulanate 125 mg tablet 1 tab PO BID 10 days #20 tabs 01/15/24 [Rx Last Taken Unknown] oxycodone-acetaminophen 5 mg-325 mg tablet (Percocet) 1 tab PO Q6H PRN pain 3 days #12 tabs 01/15/24 [Rx Last Taken Unknown] Allergy/AdvReac Type Severity Reaction Status Date / Time cyclobenzaprine HCl Allergy Hives Verified 01/14/24 22:30 [From Flexeril] venlafaxine [From Effexor] AdvReac Severe hives Verified 01/14/24 22:30 Family History Father CVA (cerebral vascular accident) Heart disease Diabetes Mother Thyroid disorder Surgical History H/O arthroscopic knee surgery History of delivery History of cholecystectomy Social History household members: none Smoking Status: Former smoker how long ago did patient quit smokin PPD smoker second hand exposure: Yes alcohol intake: never substance use type: does not use caffeine: Yes Type: carbonated beverages Number of servings: 1 and coffee Number of servings: 1 ROS ROS ED Constitutional Constitutional ED: Denies chills or fever(s) ENT ENT ED: Denies sore throat Cardiovascular Cardiovascular: Denies chest pain Respiratory/Chest Respiratory/Chest: Reports dyspnea; Denies cough Gastrointestinal Gastrointestinal: Denies abdominal pain, diarrhea, nausea or vomiting Genitourinary Genitourinary ED: Denies dysuria Musculoskeletal Musculoskeletal: Reports other Details: Positive bilateral lower leg pain Integumentary Reports other Details: Positive redness bilateral lower legs Neurologic Neurologic: Denies headache(s) Hematologic/Lymphatic Hematologic/Lymphatic: Reports easy bleeding and easy bruising EXAM Physical Exam Const Vital Signs: 01/14/24 22:27 Temperature 97.4 F L Temperature Source Temporal Pulse Rate 92 Respiratory Rate 20 H Blood Pressure 107/44 L Blood Pressure Mean 65 Pulse Ox 91 Oxygen Delivery Method Nasal Cannula Oxygen Flow Rate (L/min) 5 Positive well nourished, well developed and obese General Appearance ED: well developed Nutritional Appearance: obese HEENT HEENT Narrative: No tongue or lip swelling no oral lesions no airway edema or compromise Eyes PERRL and EOMs intact bilaterally General Eye ED: Negative for scleral icterus Neck supple and no JVD Resp normal respiratory effort and clear to auscultation bilaterally Resp Narrative: Breath sounds are slight diminished throughout but overall clear to auscultation without nasal flaring retractions tachypnea or accessory muscle use No crackles noted Cardio regular rate and regular rhythm Rate: other Other Details: Heart is regular rate and rhythm without murmurs rubs or gallops Radial and carotid pulses are equal and symmetric GI normal to inspection, nondistended, normoactive bowel sounds, non-tender, non- distended and no masses GI Narrative: No pulsatile mass or fluid wave noted Auscultation: normoactive bowel sounds Palpation: soft Extremity Extremity Narrative: Bilateral lower extremities are neurovascularly intact Patient has +2 pitting edema to the bilateral lower extremities that is equal and symmetric Negative Homans' sign bilaterally Patient has multiple healing blisters to the lower legs consistent with either venous insufficiency or secondary to peripheral edema. However there is increased redness and warmth around the blister sites concerning for developing infection. No obvious abscess formation. No lymphangitic streaking. Neuro oriented x3 and CN's II-XII intact bilaterally Sensorium / Orientation: alert Psych mental status grossly normal Skin Skin Narrative: Changes to the bilateral lower legs as documented above MDM MDM MDM Narrative Medical decision making narrative: Patient presented to the ER with stable vitals but reported increased shortness of breath and leg swelling and with her past medical history there is concern for congestive heart failure exacerbation/pleural effusions versus cellulitis versus DKA versus sepsis. Patient's vitals are stable and her white count is elevated at 13 but otherwise she does not have findings to suggest sepsis/systemic infection. Her proBNP is normal at 4 and her chest x-ray does not reveal any sign of fluid overload. There is also concern for DVT as a cause of her leg pain and swelling but the patient is currently on Eliquis and states has been taking the medication as directed and therefore have low concern for this and do not feel there is a need for a venous duplex at this time. Patient was started on Zosyn in the ER and will be placed on Augmentin for home secondary to the cellulitis. She is currently on 80 mg of oral Lasix daily and asked her proBNP is normal and her chest x-ray does not show signs of fluid overload I do not feel there is a need for IV Lasix at this time. Therefore as patient is not in acute respiratory failure does not have workup findings to suggest sepsis and does not have any clinically significant electrolyte derangement I do not feel there is need for admission and she be discharged home with symptomatic care. History & Record Review Discussion w/independent historian: Patient Lab Data Attestation: I reviewed the patient's lab results. Labs: Laboratory Results - last 24 hr 01/14/24 22:52 WBC 13.2 H RBC 4.09 L Hgb 11.2 L Hct 36.5 L MCV 89.2 MCH 27.4 MCHC 30.7 L RDW Std Deviation 47.5 H RDW Coeff of Darrion 14.7 H Plt Count 317 MPV 10.3 Immature Gran % (Auto) 0.900 Neut % (Auto) 68.8 Lymph % (Auto) 23.8 [place] % (Auto) 3.6 Eos % (Auto) 2.1 Baso % (Auto) 0.8 Absolute Neuts (auto) 9.1 H Absolute Lymphs (auto) 3.13 Nucleated RBC % 0 Sodium 140 Potassium 3.7 Chloride 100 Carbon Dioxide 33.0 H Anion Gap 7 BUN 26 H Creatinine 1.14 H Estim Creat Clear Calc 96.92 Est GFR (MDRD) Af Amer 66 Est GFR (MDRD) Non-Af 54 L BUN/Creatinine Ratio 22.8 H Glucose 232 H Calcium 8.8 B-Natriuretic Peptide 3.8 Radiography Diagnostic Testing: Clinical Impression(s) from Imaging Studies Chest X-Ray 01/14/24 23:13 IMPRESSION: No evidence of active intrathoracic disease. Electronically Signed: Laurel Ni MD at 23:51 EST , Chest x-ray as interpreted by the emergency medicine physician reveals no acute infiltrate pneumothorax or pleural effusion Discharge Plan Triage Chief Complaint: Cellulitis ED Provider: Eulogio Jiang Dx/Rx/DC Orders Clinical Impression: Cellulitis of leg, Chronic diastolic (congestive) heart failure, Diabetes, Morbid obesity Instructions: Coping with Heart Failure, Cellulitis Dc Prescriptions: New amoxicillin-pot clavulanate 875-125 mg tablet 1 tab PO BID 10 Days Qty: 20 0RF oxycodone-acetaminophen [Percocet] 5-325 mg tablet 1 tab PO Q6H PRN (Reason: pain) 3 Days Qty: 12 0RF No Action loratadine 10 mg tablet 10 mg PO DAILY PRN (Reason: Allergies) lisinopril 10 mg tablet 10 mg PO DAILY Patient Comments: TAKE 1 TABLET BY MOUTH EVERY DAY metformin 500 mg tablet extended release 24 hr 2,000 mg PO DAILY metoprolol succinate 25 mg tablet extended release 24 hr 25 mg PO DAILY Patient Comments: TAKE 1 TABLET BY MOUTH EVERY DAY atorvastatin 80 mg tablet 80 mg PO QHS [id number]-calcium-mins 1 EACH tablet 1 ea PO DAILY Patient Comments: vitamin omeprazole 40 MG capsule,delayed release(DR/EC) 40 mg PO DAILY diltiazem HCl 120 MG capsule 120 mg PO DAILY apixaban 5 MG tablet 5 mg PO BID furosemide 40 mg tablet 80 mg PO BID insulin lispro [Humalog KwikPen Insulin] 100 unit/mL Insulin Pen 50 unit subcut TIDAC Qty: 0 0RF albuterol sulfate 2.5 mg /3 mL (0.083 %) solution for nebulization 2.5 mg inhalation Q4H PRN (Reason: SOB) furosemide 20 mg tablet 20 mg PO PRN PRN (Reason: Edema) fenofibrate nanocrystallized 145 mg tablet 145 mg PO DAILY Jardiance 10 mg tablet 10 mg PO DAILY citalopram 20 mg tablet 20 mg PO DAILY Toujeo Max U-300 SoloStar 300 unit/mL (3 mL) insulin pen 104 unit SUBCUT BID lorazepam 0.5 mg tablet 0.5 mg PO Q12H PRN (Reason: anxiety) Patient Comments: Take one (1) tablet by mouth every 12 hours, as needed for anxiety. PALLIATIVE PATIENT nicotine 21 mg/24 hr patch 24 hour 1 patch topical Q24H Ozempic 1 mg/dose (4 mg/3 mL) pen injector 1 mg SUBCUT .1XW metolazone 2.5 mg tablet 2.5 mg PO .every / Qty: 8 1RF potassium chloride 20 mEq tablet,ER particles/crystals See Rx Instructions .ROUTE .COMPLEX Qty: 60 11RF Dose Instruction: TAKE 1 TABLET BY MOUTH TWICE A DAY Rx Instructions: TAKE 1 TABLET BY MOUTH TWICE A DAY Primary Care Provider: Delmy Landon Referrals: Delmy Landon MD [Primary Care Provider] - Activity Restrictions/Additional Instructions: Please contact your family doctor to check if they want you to increase your Lasix for the next few days based on your increased swelling. However your marker for heart failure is normal and your chest x-ray shows no signs of retained fluid. You will be placed on antibiotics for the infection in your legs and if you develop a fever or have any further concerns please return for repeat evaluation. Disposition Disposition: Home, Self Care
[2024-01-15 00:54] VITALS: BP 168/82; PULSE 88; RESP 18; TEMP 36.7; O2SAT 96
== END 2024-01-15 00:55 | disposition home or self-care (01) ==
PROVIDERS: Emergency Provider Emergency Medicine; PCP Family Medicine; Visit Provider Emergency Medicine
DX: L03.115 Cellulitis of right lower limb (principal); J44.9 Chronic obstructive pulmonary disease, unspecified; I11.0 Hypertensive heart disease with heart failure; I50.32 Chronic diastolic (congestive) heart failure; J96.11 Chronic respiratory failure with hypoxia; E66.01 Morbid (severe) obesity due to excess calories; E11.9 Type 2 diabetes mellitus without complications; Z79.4 Long term (current) use of insulin; L03.116 Cellulitis of left lower limb; Z87.891 Personal history of nicotine dependence; Z79.84 Long term (current) use of oral hypoglycemic drugs; Z79.01 Long term (current) use of anticoagulants; Z79.899 Other long term (current) drug therapy; Z99.81 Dependence on supplemental oxygen
CPT/HCPCS: 71046; 80048; 83880; 85025; 96365; 96375; 99282; J7050; A4216; J2405

== ENCOUNTER → 2024-03-23 | Outpatient (CLI) | payer MEDICARE, MEDICAID, SELFPAY ==
[2024-03-23 18:41] LABS: ALB/GLOB Ratio 0.9 RATIO (0.9-2.4); AST(SGOT) 23 U/L (15-37); Alanine Aminotransfer ALT/SGPT 34 U/L (13-56); Albumin, Serum 3.4 g/dL (3.2-5.0); Alkaline Phosphatase 71 U/L (45-117); Anion Gap 7 (5-15); BUN 21 mg/dL (7-18); BUN/Creat Ratio 24.1 RATIO (10-20); Calcium,Total 9.4 mg/dL (8.5-10.1); Chloride 98 mmol/L (98-107); Creatinine, Serum 0.87 mg/dL (0.55-1.02); EST Glomerular Filtration Rate 74 mL/min (>60); Est Glom Filt Rate - Afr Amer 90 mL/min (>60); Globulin 3.9 g/dL (2.2-4.2); Glucose 251 mg/dL (74-106); Potassium 3.7 mmol/L (3.5-5.1); Protein, Total 7.3 g/dL (6.4-8.2); Sodium Level 138 mmol/L (136-145)
== END | disposition home or self-care (01) ==
LOC: MFPLAB 14:20
PROVIDERS: PCP Family Medicine; Visit Provider Family Medicine
DX: R60.9 Edema, unspecified (principal)
CPT/HCPCS: 36415; 80053

== ENCOUNTER 2024-03-27 22:17 | Emergency (ER) | payer MEDICARE, MEDICAID, SELFPAY ==
[2024-03-27 22:19] VITALS: BP 126/62; PULSE 89; RESP 18; TEMP 35.7; O2SAT 98
[2024-03-27 22:21] VITALS: BMI 59.6
--- NOTE | 2024-03-27 22:52 | EX.ED.DYSGE1 ---
HPI History of Present Illness Chief Complaint: General Illness Informant: patient Narrative Narrative: Patient is a 48-year-old female with past medical history of type 2 diabetes on insulin as well as chronic respiratory failure with hypoxia on chronic oxygen. She states this evening at 9:10 PM she went to inject herself with a new NovoLog pen. She states that she is supposed to take 50 units without she was having difficulty dialing the pen to that value so she gave herself reportedly 14 units. She states she then dialed the pen once more up to the total amount of 50 and then she went to inject herself once again and noticed that the pen was empty. Patient is unsure if the pen malfunctioned if it leaked down her skin or if she truly did inject her herself. She states that this occurred at 9:10 PM and she contacted her daughter and the doctor on-call and they advised her to come to the hospital for evaluation. Patient states that overall she feels normal and that her blood sugar prior to using the insulin was roughly 240. [facility] Medical History Abscess Abscess of vulva Acute on chronic respiratory failure with hypoxia and hypercapnia KERRY (acute kidney injury) Anemia Anxiety Arthritis BiPAP (biphasic positive airway pressure) dependence BMI 60.0-69.9, adult CHF (congestive heart failure) Chronic diastolic (congestive) heart failure Chronic respiratory failure with hypoxia Congestive heart failure Contusion of knee, right COPD (chronic obstructive pulmonary disease) Depression Diabetes Dyspnea on exertion Essential hypertension GERD (gastroesophageal reflux disease) Hidradenitis History of diabetes mellitus History of left heart catheterization (LHC) (~01/05/19) History of MRSA infection Hyperglycemia due to type 2 diabetes mellitus Hyperlipidemia Hypertension Hypoxia Morbid obesity Morbid obesity Necrotizing soft tissue infection Non-healing open wound of left groin Non-smoker Noncompliance with CPAP treatment NSTEMI (non-ST elevated myocardial infarction) 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 Old myocardial infarction On home oxygen therapy Open wound of vulva with complication Opiate overdose Perianal abscess Pulmonary embolism Respiratory failure with hypoxia Restrictive lung disease secondary to obesity Sleep apnea Smoker Soft tissue abscess of inguinal region Tobacco abuse Type 2 diabetes mellitus Type 2 diabetes mellitus with hyperglycemia Venous stasis dermatitis of both lower extremities Home Medications multivit-iron 18 mg-folic acid 400 mcg-calcium 500 mg-minerals tablet 1 ea PO DAILY supplement 03/26/17 [History Last Taken 07/14/23] omeprazole 40 mg capsule,delayed release 40 mg PO DAILY GERD 12/15/18 [History Last Taken 07/14/23] loratadine 10 mg tablet 10 mg PO DAILY PRN Allergies 03/01/20 [History Last Taken 07/14/23] apixaban 5 mg tablet 5 mg PO BID blood thinner 08/20/20 [History Last Taken 07/14/23] diltiazem HCl 120 mg capsule,extended release 24 hr 120 mg PO DAILY heart rate 08/20/20 [History Last Taken 07/14/23] lisinopril 10 mg tablet 10 mg PO DAILY blood pressure 03/26/21 [History Last Taken 07/14/23] metformin 500 mg tablet,extended release 24 hr 2,000 mg PO DAILY diabetes 03/26/21 [History Last Taken 07/14/23] metoprolol succinate 25 mg tablet,extended release 24 hr 25 mg PO DAILY blood pressure 03/26/21 [History Last Taken 07/14/23] atorvastatin 80 mg tablet 80 mg PO QHS cholesterol 02/07/22 [History Last Taken 07/14/23] furosemide 40 mg tablet 80 mg PO BID diuretic 09/22/22 [History Last Taken 07/14/23] insulin lispro 100 unit/mL subcutaneous pen (Humalog KwikPen (U-100) Insulin) 50 unit (0.5 mL) subcut TIDAC #0 mL 09/24/22 [Rx Last Taken 07/13/23] albuterol sulfate 2.5 mg/3 mL (0.083 %) solution for nebulization 2.5 mg inhalation Q4H PRN SOB 12/09/22 [History Last Taken 07/10/23] empagliflozin 10 mg tablet (Jardiance) 10 mg PO DAILY DM 12/09/22 [History Last Taken 04/23/23] fenofibrate nanocrystallized 145 mg tablet 145 mg PO DAILY CHOLESTEROL 12/09/22 [History Last Taken 07/14/23] furosemide 20 mg tablet 20 mg PO PRN PRN Edema 12/09/22 [History Last Taken Unknown] citalopram 20 mg tablet 20 mg PO DAILY mental health 07/14/23 [History Last Taken 07/14/23] insulin glargine U-300 conc 300 unit/mL (3 mL) subcutaneous pen (Toujeo Max U-300 SoloStar) 104 unit subcut BID diabetes 07/14/23 [History Last Taken 07/13/23] lorazepam 0.5 mg tablet 0.5 mg PO Q12H PRN anxiety 07/14/23 [History Last Taken 07/13/23] nicotine 21 mg/24 hr daily transdermal patch 1 patch topical Q24H quit smoking 07/14/23 [History Last Taken 07/13/23] semaglutide 1 mg/dose (4 mg/3 mL) subcutaneous pen injector (Ozempic) 1 mg subcut .1XW diabetes 07/14/23 [History Last Taken 07/13/23] metolazone 2.5 mg tablet 2.5 mg PO .every / #8 tabs 07/15/23 [Rx Last Taken Unknown] potassium chloride 20 mEq tablet,extended release(part/cryst) See Rx Instructions .Route .COMPLEX #60 TABLETS 08/14/23 [Rx Last Taken Unknown] amoxicillin 875 mg-potassium clavulanate 125 mg tablet 1 tab PO BID 10 days #20 tabs 01/15/24 [Rx Last Taken Unknown] oxycodone-acetaminophen 5 mg-325 mg tablet (Percocet) 1 tab PO Q6H PRN pain 3 days #12 tabs 01/15/24 [Rx Last Taken Unknown] Allergy/AdvReac Type Severity Reaction Status Date / Time cyclobenzaprine HCl Allergy Hives Verified 03/27/24 22:19 [From Flexeril] venlafaxine [From Effexor] AdvReac Severe hives Verified 03/27/24 22:19 Family History Father CVA (cerebral vascular accident) Heart disease Diabetes Mother Thyroid disorder Surgical History H/O arthroscopic knee surgery History of delivery History of cholecystectomy Social History household members: none Smoking Status: Current some day smoker tobacco type: cigarettes how long ago did patient quit smokin PPD smoker second hand exposure: Yes alcohol intake: never substance use type: does not use caffeine: Yes Type: carbonated beverages Number of servings: 1 and coffee Number of servings: 1 ROS ROS ED Constitutional Constitutional ED: Denies chills or fever(s) Eyes Eyes: Denies change in vision ENT ENT ED: Denies sore throat Cardiovascular Cardiovascular: Denies chest pain Respiratory/Chest Respiratory/Chest: Reports dyspnea; Denies cough Gastrointestinal Gastrointestinal: Denies abdominal pain, diarrhea, nausea or vomiting Genitourinary Genitourinary ED: Denies dysuria Musculoskeletal Musculoskeletal: Denies myalgias Integumentary Reports rash Neurologic Neurologic: Denies headache(s) Hematologic/Lymphatic Hematologic/Lymphatic: Denies easy bleeding or easy bruising EXAM Physical Exam Const Vital Signs: 03/27/24 22:19 03/27/24 22:33 03/28/24 00:18 Temperature 96.2 F L Temperature Source Temporal Pulse Rate 89 87 Respiratory Rate 18 19 H Respiratory Effort Normal Non-Labored Respiratory Pattern Normal Blood Pressure 126/62 H 93/51 L Blood Pressure Mean 83 65 Pulse Ox 98 97 Oxygen Delivery Method Room Air Nasal Cannula Oxygen Flow Rate (L/min) 4 Positive well nourished, well developed and obese General Appearance ED: well developed Nutritional Appearance: obese HEENT HEENT Narrative: Normocephalic atraumatic Eyes PERRL and EOMs intact bilaterally General Eye ED: Negative for scleral icterus Neck supple Resp normal respiratory effort Resp Narrative: Breath sounds are diminished throughout with diffuse expiratory wheeze consistent with history of restrictive lung disease and chronic respiratory failure Cardio regular rate and regular rhythm GI normal to inspection, nondistended, normoactive bowel sounds, non-tender, non-distended and no masses Auscultation: normoactive bowel sounds Palpation: soft Extremity Extremity Narrative: There is +1 pitting edema to the bilateral lower extremities that is chronic in nature with chronic stasis changes but no secondary findings to suggest infection Neuro oriented x3, CN's II-XII intact bilaterally and no sensory deficits noted Sensorium / Orientation: alert Motor Exam: strength 5/5 throughout Psych mental status grossly normal Skin Skin Narrative: Chronic stasis changes to bilateral lower legs as documented above MDM MDM MDM Narrative Medical decision making narrative: Patient arrived to the ER with stable vitals and reported she took accidentally 300 units of NovoLog insulin around 9:10 PM. She stated her blood sugar prior to taking the insulin was approximately 240. NovoLog begins to work in 20 to 30 minutes and peaks in 1 to 3 hours. Upon arrival has been approximately an hour and a half and at that time her blood sugar was only down 20 point indicating she most likely only had the 14 units injected and not the for 300. However in order to ensure that she would not progress to hypoglycemia or require a D5 drip she was watched in the ER for the entire 5-hour duration of the insulin. During this time blood sugars were checked every hour and remained stable. At the end of 5 hours vitals are stable mental status is normal her blood sugar remains in the 200s. Therefore this time as risk for accidental insulin overdose is low and vitals are stable I do not feel there is need for further observation and she is otherwise safe for discharge History & Record Review Discussion w/independent historian: Patient Lab Data Attestation: I reviewed the patient's lab results. Labs: Laboratory Results - last 24 hr 03/27/24 03/27/24 03/27/24 22:39 22:41 23:36 WBC 8.8 RBC 3.90 L Hgb 11.3 L Hct 35.7 L MCV 91.5 MCH 29.0 MCHC 31.7 L RDW Std Deviation 45.3 H RDW Coeff of Darrion 13.7 Plt Count 226 MPV 10.5 Immature Gran % (Auto) 0.500 Neut % (Auto) 61.1 Lymph % (Auto) 28.7 Cuming % (Auto) 4.8 Eos % (Auto) 3.9 Baso % (Auto) 1.0 Absolute Neuts (auto) 5.4 Absolute Lymphs (auto) 2.53 Nucleated RBC % 0 Sodium 138 Potassium 3.6 Chloride 97 L Carbon Dioxide 35.0 H Anion Gap 6 BUN 33 H Creatinine 1.27 H Estim Creat Clear Calc 86.75 Est GFR (MDRD) Af Amer 58 L Est GFR (MDRD) Non-Af 48 L BUN/Creatinine Ratio 26.0 H Glucose 242 H Calcium 8.7 POC Glucose 225 H 236 H 03/28/24 00:44 WBC RBC Hgb Hct MCV MCH MCHC RDW Std Deviation RDW Coeff of Darrion Plt Count MPV Immature Gran % (Auto) Neut % (Auto) Lymph % (Auto) Cuming % (Auto) Eos % (Auto) Baso % (Auto) Absolute Neuts (auto) Absolute Lymphs (auto) Nucleated RBC % Sodium Potassium Chloride Carbon Dioxide Anion Gap BUN Creatinine Estim Creat Clear Calc Est GFR (MDRD) Af Amer Est GFR (MDRD) Non-Af BUN/Creatinine Ratio Glucose Calcium POC Glucose 216 H Discharge Plan Triage Chief Complaint: General Illness ED Provider: Eulogio Jiang Dx/Rx/DC Orders Clinical Impression: Accidental overdose of insulin, Restrictive lung disease secondary to obesity, Insulin dependent diabetes mellitus, Morbid obesity Prescriptions: No Action loratadine 10 mg tablet 10 mg PO DAILY PRN (Reason: Allergies) lisinopril 10 mg tablet 10 mg PO DAILY Patient Comments: TAKE 1 TABLET BY MOUTH EVERY DAY metformin 500 mg tablet extended release 24 hr 2,000 mg PO DAILY metoprolol succinate 25 mg tablet extended release 24 hr 25 mg PO DAILY Patient Comments: TAKE 1 TABLET BY MOUTH EVERY DAY atorvastatin 80 mg tablet 80 mg PO QHS [id number]-calcium-mins 1 EACH tablet 1 ea PO DAILY Patient Comments: vitamin omeprazole 40 MG capsule,delayed release(DR/EC) 40 mg PO DAILY diltiazem HCl 120 MG capsule 120 mg PO DAILY apixaban 5 MG tablet 5 mg PO BID furosemide 40 mg tablet 80 mg PO BID insulin lispro [Humalog KwikPen Insulin] 100 unit/mL Insulin Pen 50 unit subcut TIDAC Qty: 0 0RF albuterol sulfate 2.5 mg /3 mL (0.083 %) solution for nebulization 2.5 mg inhalation Q4H PRN (Reason: SOB) furosemide 20 mg tablet 20 mg PO PRN PRN (Reason: Edema) fenofibrate nanocrystallized 145 mg tablet 145 mg PO DAILY Jardiance 10 mg tablet 10 mg PO DAILY amoxicillin-pot clavulanate 875-125 mg tablet 1 tab PO BID 10 Days Qty: 20 0RF oxycodone-acetaminophen [Percocet] 5-325 mg tablet 1 tab PO Q6H PRN (Reason: pain) 3 Days Qty: 12 0RF citalopram 20 mg tablet 20 mg PO DAILY Toujeo Max U-300 SoloStar 300 unit/mL (3 mL) insulin pen 104 unit SUBCUT BID lorazepam 0.5 mg tablet 0.5 mg PO Q12H PRN (Reason: anxiety) Patient Comments: Take one (1) tablet by mouth every 12 hours, as needed for anxiety. PALLIATIVE PATIENT nicotine 21 mg/24 hr patch 24 hour 1 patch topical Q24H Ozempic 1 mg/dose (4 mg/3 mL) pen injector 1 mg SUBCUT .1XW metolazone 2.5 mg tablet 2.5 mg PO .every / Qty: 8 1RF potassium chloride 20 mEq tablet,ER particles/crystals See Rx Instructions .ROUTE .COMPLEX Qty: 60 11RF Dose Instruction: TAKE 1 TABLET BY MOUTH TWICE A DAY Rx Instructions: TAKE 1 TABLET BY MOUTH TWICE A DAY Primary Care Provider: Delmy Landon Referrals: Delmy Landon MD [Primary Care Provider] - Activity Restrictions/Additional Instructions: Please continue all of your home medications as directed by your family doctor and return to the ER should you have any further concerns Disposition Disposition: Home, Self Care
[2024-03-27 22:58] LABS: Absolute Lymphocyte Count 2.53 X10^3/uL (0.83-4.51); Absolute Neutrophil Count 5.4 X10^3/uL (2.0-7.7); Basophil# 0.09 X10^3/uL; Eosinophil# 0.34 X10^3/uL; Eosinophils% 3.9 % (0-5); Hematocrit 35.7 % (37-47); Hemoglobin 11.3 g/dL (12.0-15.0); Lymphocyte # 2.53 X10^3/ul (0.83-4.51); Lymphocyte % 28.7 % (19-41); Mean Corp Hgb Conc 31.7 g/dL (32-36); Mean Corpuscular Volume 91.5 fL (81-99); Mean Platelet Vol. 10.5 fl (6.2-12.0); Monocyte# 0.42 X10^3/uL; Monocyte% 4.8 % (0-10); NRBC Flagged by Analyzer 0 % (0-5); Neutrophil # 5.39 X10^3/uL (2.7-7.7); Neutrophil % 61.1 % (47-70); Platelet Count 226 K/mm3 (150-450); RBC Distribution Width CV 13.7 % (11.6-14.6); RBC Distribution Width SD 45.3 fl (35.1-43.9); White Blood Count 8.8 K/mm3 (4.4-11.0)
[2024-03-27 22:58] LABS: Bedside Glucose 225 mg/dL (74-106)
[2024-03-27 23:15] LABS: Anion Gap 6 (5-15); BUN 33 mg/dL (7-18); Calcium,Total 8.7 mg/dL (8.5-10.1); Chloride 97 mmol/L (98-107); Creatinine, Serum 1.27 mg/dL (0.55-1.02); EST Glomerular Filtration Rate 48 mL/min (>60); Est Glom Filt Rate - Afr Amer 58 mL/min (>60); Estimated Creatinine Clearance 86.75 ml/min; Glucose 242 mg/dL (74-106); Potassium 3.6 mmol/L (3.5-5.1); Sodium Level 138 mmol/L (136-145)
[2024-03-27 23:58] LABS: Bedside Glucose 236 mg/dL (74-106)
[2024-03-28 00:18] VITALS: BP 93/51; PULSE 87; RESP 19; O2SAT 97
[2024-03-28 01:02] LABS: Bedside Glucose 216 mg/dL (74-106)
[2024-03-28 02:00] VITALS: BP 111/61; PULSE 89; RESP 119; TEMP 36.1; O2SAT 96
[2024-03-28 02:24] LABS: Bedside Glucose 223 mg/dL (74-106)
== END 2024-03-28 02:18 | disposition home or self-care (01) ==
PROVIDERS: Emergency Provider Emergency Medicine; PCP Family Medicine; Visit Provider Emergency Medicine
DX: T38.3X1A Poisoning by insulin and oral hypoglycemic [antidiabetic] drugs, accidental (unintentional), initial encounter (principal); J96.11 Chronic respiratory failure with hypoxia; I11.0 Hypertensive heart disease with heart failure; I50.32 Chronic diastolic (congestive) heart failure; J44.9 Chronic obstructive pulmonary disease, unspecified; E66.01 Morbid (severe) obesity due to excess calories; E11.9 Type 2 diabetes mellitus without complications; Z79.4 Long term (current) use of insulin; J98.4 Other disorders of lung; F17.210 Nicotine dependence, cigarettes, uncomplicated; Z99.81 Dependence on supplemental oxygen; Z79.01 Long term (current) use of anticoagulants; Z79.85 Long-term (current) use of injectable non-insulin antidiabetic drugs; Z79.899 Other long term (current) drug therapy
CPT/HCPCS: 80048; 82962; 85025; 99282

== ENCOUNTER → 2024-04-19 | Outpatient (CLI) | payer MEDICARE, MEDICAID, SELFPAY ==
--- NOTE | 2024-04-19 10:59 | RAD_ITS ---
STUDY: X-RAY - CERVICAL SPINE REASON FOR EXAM: Female, 48 years old. Acute on chronic neck pain. TECHNIQUE: 5 view(s) of the cervical spine were obtained on 8 images. COMPARISON: None FINDINGS: Normal anterior atlantoaxial articulation. Normal odontoid process. Positional reversal of the normal lordotic curve. Mild diffuse uncovertebral and facet sclerosis. Normal vertebral alignment. Normal intervertebral disc spaces. Normal intervertebral foramina. Normal soft tissues. RAD/Cerv Spine 4 or 5 Views IMPRESSION: Reversal of the normal lordotic curve with mild diffuse cervical spondylosis. No other abnormality. Electronically Signed: Flex Higgins MD at 12:49 EDT ,
--- NOTE | 2024-04-19 10:59 | RAD_ITS ---
STUDY: X-RAY CHEST REASON FOR EXAM: Female, 48 years old. Left rib pain with shortness of breath. TECHNIQUE: Frontal and lateral views of the chest on 3 images. COMPARISON: January 14, 2024 FINDINGS: The lungs are clear and expanded. There is no demonstrated pleural abnormality. Normal size heart. Normal mediastinum and evi. Normal visualized pulmonary arteries. Normal visualized aortic arch and descending thoracic aorta. Normal visualized thoracic spine. Normal visualized ribs, clavicles, and shoulders. No abnormality of the visualized soft tissue structures of the upper abdomen. RAD/Chest PA and Lateral IMPRESSION: No interval change and no acute or active cardiopulmonary disease. Electronically Signed: Flex Higgins MD at 12:22 EDT ,
== END | disposition home or self-care (01) ==
LOC: MTRAD 10:59
PROVIDERS: PCP Family Medicine; Referring Provider Family Medicine; Visit Provider Family Medicine
DX: M54.2 Cervicalgia (principal); G89.29 Other chronic pain; R06.02 Shortness of breath; R07.81 Pleurodynia
CPT/HCPCS: 71046; 72050

== ENCOUNTER 2024-11-09 19:47 | Inpatient (IN) | payer MEDICARE, MEDICAID, SELFPAY ==
[2024-11-09] VITALS (8 sets, daily range): BP systolic 96–150; BP diastolic 34–80; PULSE 103–111; RESP 18–21; TEMP 36.9–38; O2SAT 84–97; BMI 63.8
--- NOTE | 2024-11-09 20:25 | RAD_ITS ---
INDICATION: SOB EXAMINATION/TECHNIQUE: X-RAY - XR Chest 1 View COMPARISON: April 19, 2024 FINDINGS: LINES/DEVICES: None. LUNGS: No consolidation, edema or effusion. No pneumothorax. MEDIASTINUM AND CARDIOVASCULAR STRUCTURES: Cardiac silhouette not enlarged. Central pulmonary vascular prominence. Central airways and mediastinal contour are unremarkable. BONES AND SOFT TISSUES: Unremarkable. RAD/Chest 1 View (Portable) IMPRESSION: Slight central pulmonary vascular prominence. Electronically Signed: Gilbert Jameson DO at 21:22 EST ,
[2024-11-09 20:48] LABS: Lactic Acid 2.3 mmol/L (0.4-1.9)
--- NOTE | 2024-11-09 20:55 | ED.VIS.DYS ---
HPI History of Present Illness Chief Complaint: Shortness of Breath Informant: patient Onset/Context/Timing Onset: Days Context: gradual Timing: Continuous Quality: Positive for Dyspnea on exertion Worsened by: Exertion Relieved by: Rest Associated Symptoms cough, subjective, chills and yellow sputum; Negative for rhinorrhea, post nasal drip, ear pain, fever, sore throat, sweats, clear sputum, white sputum or green sputum Narrative Narrative: Patient presents with shortness of breath has been getting worse over the past few days. Patient states it is gradually getting worse. Patient states her breathing is worse with any exertion. Patient states it is constant. Patient states it does get better with rest. Patient states she is coughing up some yellow and brown sputum. Patient admits to some subjective chills but denies any fevers. Patient denies any chest pain. Patient denies any sore throat or rhinorrhea. Patient states she is diabetic and has been having some polyuria and polydipsia. Patient states her blood sugars at home have been increasing. The patient admits to some redness and swelling to her lower legs and has been having some drainage from her legs.. PE Risk Factors: Negative for Cancer, OCP + Smoking + > 35, Prior DVT or PE, Recent immobilization, Recent surgery or Recent travel [facility] Medical History Arthritis Non-smoker CHF (congestive heart failure) History of diabetes mellitus Anemia Hypoxia Morbid obesity Venous stasis dermatitis of both lower extremities BMI 60.0-69.9, adult Noncompliance with CPAP treatment Acute on chronic respiratory failure with hypoxia and hypercapnia Perianal abscess Type 2 diabetes mellitus with hyperglycemia Contusion of knee, right Chronic diastolic (congestive) heart failure Depression Diabetes GERD (gastroesophageal reflux disease) BiPAP (biphasic positive airway pressure) dependence Sleep apnea On home oxygen therapy Smoker COPD (chronic obstructive pulmonary disease) Hypertension Congestive heart failure KERRY (acute kidney injury) Chronic respiratory failure with hypoxia Opiate overdose History of left heart catheterization (LHC) (~01/05/19) Type 2 diabetes mellitus Old myocardial infarction Essential hypertension Restrictive lung disease secondary to obesity Dyspnea on exertion Pulmonary embolism Hidradenitis Non-healing open wound of left groin Open wound of vulva with complication Necrotizing soft tissue infection Abscess of vulva Soft tissue abscess of inguinal region Respiratory failure with hypoxia Abscess Hyperglycemia due to type 2 diabetes mellitus NSTEMI (non-ST elevated myocardial infarction) Tobacco abuse Hyperlipidemia Morbid obesity History of MRSA infection Anxiety 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 Home Medications ?Medication ?Instructions ?Recorded ?Last Taken ?Type multivit-iron 18 mg-folic acid 400 1 ea PO DAILY supplement 03/26/17 07/14/23 History mcg-calcium 500 mg-minerals tablet omeprazole 40 mg capsule,delayed 40 mg PO DAILY GERD 12/15/18 07/14/23 History release loratadine 10 mg tablet 10 mg PO DAILY PRN Allergies 03/01/20 07/14/23 History apixaban 5 mg tablet 5 mg PO BID blood thinner 08/20/20 07/14/23 History diltiazem HCl 120 mg 120 mg PO DAILY heart rate 08/20/20 07/14/23 History capsule,extended release 24 hr lisinopril 10 mg tablet 10 mg PO DAILY blood pressure 03/26/21 07/14/23 History metformin 500 mg tablet,extended 1,000 mg PO DAILY diabetes 03/26/21 07/14/23 History release 24 hr metoprolol succinate 25 mg 25 mg PO DAILY blood pressure 03/26/21 07/14/23 History tablet,extended release 24 hr atorvastatin 80 mg tablet 80 mg PO QHS cholesterol 02/07/22 07/14/23 History furosemide 40 mg tablet 80 mg PO DAILY diuretic 09/22/22 07/14/23 History insulin lispro 100 unit/mL 50 unit (0.5 mL) subcut TIDAC #0 mL 09/24/22 07/13/23 Rx subcutaneous pen (Humalog KwikPen (U-100) Insulin) albuterol sulfate 2.5 mg/3 mL 2.5 mg inhalation Q4H PRN SOB 12/09/22 07/10/23 History (0.083 %) solution for nebulization fenofibrate nanocrystallized 145 145 mg PO DAILY CHOLESTEROL 12/09/22 07/14/23 History mg tablet insulin glargine U-300 conc 300 104 unit subcut BID diabetes 07/14/23 07/13/23 History unit/mL (3 mL) subcutaneous pen (Toujeo Max U-300 SoloStar) semaglutide 1 mg/dose (4 mg/3 mL) 1 mg subcut .1XW diabetes 07/14/23 07/13/23 History subcutaneous pen injector (Ozempic) metolazone 2.5 mg tablet 2.5 mg PO .every tues/thurs #8 tabs 07/15/23 Unknown Rx oxycodone-acetaminophen 5 mg-325 1 tab PO Q6H PRN pain 3 days #12 01/15/24 Unknown Rx mg tablet (Percocet) tabs potassium chloride 20 mEq See Rx Instructions .Route 08/05/24 Unknown Rx tablet,extended release(part/cryst) .COMPLEX #60 TABLETS duloxetine 60 mg capsule,delayed 60 mg PO DAILY 11/09/24 Unknown History release ergocalciferol (vitamin D2) 1,250 1,250 mcg PO QWEEK 11/09/24 Unknown History mcg (50,000 unit) capsule (Vitamin D2) ferrous sulfate 325 mg (65 mg 325 mg PO DAILY 11/09/24 Unknown History iron) tablet (FeroSul) lorazepam 1 mg tablet 1 mg PO TID 11/09/24 Unknown History Allergy/AdvReac Type Severity Reaction Status Date / Time cyclobenzaprine HCl (From Allergy Hives Verified 11/09/24 19:49 Flexeril) venlafaxine (From Effexor) AdvReac Severe hives Verified 11/09/24 19:49 Family History Father CVA (cerebral vascular accident) Heart disease Diabetes Mother Thyroid disorder Surgical History History of delivery H/O arthroscopic knee surgery History of cholecystectomy Social History household members: none Smoking Status: Current some day smoker tobacco type: cigarettes and e-cigarettes how long ago did patient quit smokin PPD smoker second hand exposure: Yes alcohol intake: never substance use type: does not use caffeine: Yes Type: carbonated beverages Number of servings: 1 and coffee Number of servings: 1 ROS ROS ED Constitutional Constitutional ED: Denies chills or fever(s) Eyes Eyes: Denies blurry vision or change in vision ENT ENT ED: Denies rhinorrhea or sore throat Cardiovascular Cardiovascular: Denies chest pain or palpitations Respiratory/Chest Respiratory/Chest: Reports cough, dyspnea and sputum Gastrointestinal Gastrointestinal: Denies nausea or vomiting Genitourinary Genitourinary ED: Reports urinary frequency; Denies dysuria or hematuria Musculoskeletal Musculoskeletal: Reports back pain and neck pain Integumentary Reports rash; Denies abscess Neurologic Neurologic: Denies headache(s) or weakness Endocrine Endocrinology: Reports polydipsia and polyuria Allergic/Immunologic Allergic/Immunologic ED: Denies mouth swelling or urticaria EXAM Physical Exam Const Vital Signs: 11/09/24 19:49 11/09/24 19:49 11/09/24 19:55 Temperature 100.4 F H 100.4 F H Temperature Source Oral Oral Pulse Rate 108 H 108 H Respiratory Rate 20 H 20 H Respiratory Effort Respiratory Depth Respiratory Pattern Blood Pressure 96/45 L 96/45 L Blood Pressure Mean 62 62 Pulse Ox 84 97 93 Oxygen Delivery Method Room Air Nasal Cannula Nasal Cannula Oxygen Flow Rate (L/min) 4 4 11/09/24 19:55 11/09/24 20:20 11/09/24 20:20 Temperature Temperature Source Pulse Rate Respiratory Rate Respiratory Effort Short of Breath Labored Respiratory Depth Shallow Respiratory Pattern Tachypnea Blood Pressure Blood Pressure Mean Pulse Ox 93 93 Oxygen Delivery Method Nasal Cannula Nasal Cannula Nasal Cannula Oxygen Flow Rate (L/min) 4 4 4 11/09/24 20:45 11/09/24 21:00 11/09/24 22:00 Temperature Temperature Source Pulse Rate 103 H 104 H 107 H Respiratory Rate 21 H 20 H 20 H Respiratory Effort Respiratory Depth Respiratory Pattern Blood Pressure 129/34 H 116/54 L 146/80 H Blood Pressure Mean 65 74 98 Pulse Ox 93 95 94 Oxygen Delivery Method Nasal Cannula Oxygen Flow Rate (L/min) 4 11/09/24 22:52 11/09/24 23:00 Temperature 98.4 F Temperature Source Pulse Rate 107 H 111 H Respiratory Rate 20 H 18 Respiratory Effort Respiratory Depth Respiratory Pattern Blood Pressure 150/53 H 102/54 L Blood Pressure Mean 85 61 Pulse Ox 92 91 Oxygen Delivery Method Oxygen Flow Rate (L/min) Positive well nourished and well developed General Appearance ED: well developed and NAD HEENT Reports moist mucous membranes Neck supple and no JVD Resp normal respiratory effort Auscultation: diminished lung sounds Cardio regular rhythm Rate: tachycardic GI non-tender and non-distended Palpation: soft Neuro oriented x3, CN's II-XII intact bilaterally and no sensory deficits noted Miguel Coma Scale: document GCS findings Spontaneous Obeys Commands Oriented 15 Sensorium / Orientation: alert Motor Exam: strength 5/5 throughout Psych mental status grossly normal Skin Skin Narrative: There is erythema and warmth over the lower legs bilaterally. It is worse at the anterior aspect. There are some open wounds on the anterior lower leg bilaterally, worse on the right. MDM MDM MDM Narrative Medical decision making narrative: Differential diagnosis includes cellulitis, sepsis, diabetic ketoacidosis, hyperosmolar hyperglycemic nonketotic state, pneumonia, bronchitis, and viral illness. CBC will be obtained to assess for leukocytosis and anemia. Comprehensive metabolic profile will be obtained to assess for hepatic function, renal function, and electrolyte abnormality. Serum acetone will be obtained to assess for ketoacidosis. Urinalysis will be obtained to assess for urinary tract infection and hematuria. PT with INR and PTT will be obtained to assess for coagulopathy. Serum lactate will be obtained to assess for sepsis. High-sensitivity troponin will be obtained to assess for cardiac ischemia. Chest x-ray will be obtained to assess for pneumonia and bronchitis. Blood culture will be obtained to assess for sepsis. Arterial blood gas will be obtained to assess for acid-base status. Lab Data Attestation: I reviewed the patient's lab results. Lab results narrative: CBC was reviewed. There is a leukocytosis of 20.2. Hemoglobin was slightly low at 9.9 and hematocrit was 31.3. PT with INR and PTT were reviewed. Pro time was 17.9 and INR is 1.5. PTT was slightly elevated at 40.9. Comprehensive metabolic profile was reviewed. BUN was slightly elevated at 34 and creatinine was 1.33. Glucose was 429. Sodium was slightly low at 129 chloride was 89. Serum lactate was mildly elevated at 2.3. Urinalysis was reviewed. There is no evidence of urinary tract infection or hematuria. Serum acetone was reviewed and was negative. Labs: Laboratory Results - last 24 hr 11/09/24 11/09/24 20:00 20:50 WBC 20.2 H RBC 3.48 L Hgb 9.9 L Hct 31.3 L MCV 89.9 MCH 28.4 MCHC 31.6 L RDW Std Deviation 44.3 H RDW Coeff of Darrion 13.5 Plt Count 280 MPV 10.2 Immature Gran % (Auto) 1.000 H Neut % (Auto) 83.2 H Lymph % (Auto) 9.8 L Collin % (Auto) 5.3 Eos % (Auto) 0.2 Baso % (Auto) 0.5 Absolute Neuts (auto) 16.8 H Absolute Lymphs (auto) 1.98 Nucleated RBC % 0 PT 17.9 H INR 1.5 APTT 40.9 H Sodium 129 L Potassium 4.0 Chloride 89 L Carbon Dioxide 31.0 Anion Gap 8 BUN 34 H Creatinine 1.33 H Estim Creat Clear Calc 85.69 Est GFR (MDRD) Af Amer 55 L Est GFR (MDRD) Non-Af 45 L BUN/Creatinine Ratio 25.6 H Glucose 429 H Lactic Acid 2.3 H* Calcium 8.9 Total Bilirubin 0.30 AST 18 ALT 21 Alkaline Phosphatase 94 Troponin I High Sens 33 Total Protein 7.3 Albumin 3.0 L Globulin 4.3 H Albumin/Globulin Ratio 0.7 L Urine Color Yellow Urine Clarity Clear Urine pH 6.0 Ur Specific [place] 1.010 Urine Protein Negative Urine Glucose (UA) 1000 H Urine Ketones Negative Urine Occult Blood Negative Urine Nitrite Negative Urine Bilirubin Negative Urine Urobilinogen Normal Ur Leukocyte Esterase Negative Urine RBC 0 SEEN Urine WBC 0 SEEN Ur Squamous Epith Cells 0-5 SEEN Urine Bacteria 0 SEEN Urine Mucus 0 SEEN Acetone Level NEGATIVE ABG Data Attestation: I personally reviewed and interpreted this ABG as follows: Interpretation: ABG was reviewed. pH was 7.336, pCO2 was 65.2, pO2 was 87.5, bicarb was 34.9, and oxygen saturation was 95.8% on 6 L nasal cannula. ABG results: ABG 11/09/24 22:00 Specimen Type ART Sample Site L Radial pH 7.34 L Bicarbonate Actual 34.9 H Total CO2 37 Base Excess 9 H O2 Saturation 96 O2 % 6.0 ABG pCO2 65.2 H ABG pO2 88 Meño Test N/A O2 Delivery Device Cannula Vent Mode Not entered Radiography Diagnostic Testing: Clinical Impression(s) from Imaging Studies Chest X-Ray 11/09/24 20:25 IMPRESSION: Slight central pulmonary vascular prominence. Electronically Signed: Gilbert Jameson DO at 21:22 EST , Portable 1 view chest x-ray was obtained. On my independent interpretation, lung fish showed slight central vascular prominence. There is normal cardiac silhouette. Bony thorax is normal. There is no acute process noted. Radiologist also interpreted the x-ray and agrees. Treatment and Re-Evaluation :: Patient was given IV fluids, morphine, and Zofran. Patient started on Unasyn and vancomycin. Case was discussed with the hospitalist. She will admit the patient to her service. Patient understood and was agreeable with the plan. All questions were answered. Discharge Plan Triage Chief Complaint: Shortness of Breath ED Provider: Faraz Flores Dx/Rx/DC Orders Clinical Impression: Sepsis, Cellulitis of leg, Lactic acidosis Prescriptions: No Action loratadine 10 mg tablet 10 mg PO DAILY PRN (Reason: Allergies) lisinopril 10 mg tablet 10 mg PO DAILY Patient Comments: TAKE 1 TABLET BY MOUTH EVERY DAY metformin 500 mg tablet extended release 24 hr 1,000 mg PO DAILY metoprolol succinate 25 mg tablet extended release 24 hr 25 mg PO DAILY Patient Comments: TAKE 1 TABLET BY MOUTH EVERY DAY atorvastatin 80 mg tablet 80 mg PO QHS [id number]-[id number] 1 EACH tablet 1 ea PO DAILY Patient Comments: vitamin omeprazole 40 MG capsule,delayed release(DR/EC) 40 mg PO DAILY diltiazem HCl 120 MG capsule 120 mg PO DAILY apixaban 5 MG tablet 5 mg PO BID furosemide 40 mg tablet 80 mg PO DAILY insulin lispro [Humalog KwikPen Insulin] 100 unit/mL Insulin Pen 50 unit subcut TIDAC Qty: 0 0RF albuterol sulfate 2.5 mg /3 mL (0.083 %) solution for nebulization 2.5 mg inhalation Q4H PRN (Reason: SOB) fenofibrate nanocrystallized 145 mg tablet 145 mg PO DAILY oxycodone-acetaminophen [Percocet] 5-325 mg tablet 1 tab PO Q6H PRN (Reason: pain) 3 Days Qty: 12 0RF insulin glargine U-300 conc [Toujeo Max U-300 SoloStar] 300 unit/mL (3 mL) insulin pen 104 unit SUBCUT BID Patient Comments: PT STATES SHE TAKES THIS BUT DOES NOT KNOW HOW OFTEN OR HOW MANY UNITS Ozempic 1 mg/dose (4 mg/3 mL) pen injector 1 mg SUBCUT .1XW metolazone 2.5 mg tablet 2.5 mg PO .every tu/ Qty: 8 1RF ferrous sulfate [FeroSul] 325 mg (65 mg iron) tablet 325 mg PO DAILY ergocalciferol (vitamin D2) [Vitamin D2] 1,250 mcg (50,000 unit) capsule 1,250 mcg PO QWEEK lorazepam 1 mg tablet 1 mg PO TID duloxetine 60 mg capsule,delayed release(DR/EC) 60 mg PO DAILY potassium chloride 20 mEq tablet,ER particles/crystals See Rx Instructions .ROUTE .COMPLEX Qty: 60 11RF Dose Instruction: TAKE 1 TABLET BY MOUTH TWICE A DAY Rx Instructions: TAKE 1 TABLET BY MOUTH TWICE A DAY Primary Care Provider: Delmy Landon Referrals: Delmy Landon MD [Primary Care Provider] - Print Language: Albanian Disposition Disposition: Acute Care Hospital [facility]
[2024-11-09 21:05] LABS: Bacteria 0 SEEN /hpf (None Seen); Mucous, Urine 0 SEEN /hpf (<or=2+); Red Blood Cells-Urine 0 SEEN /hpf (0-5); White Blood Cells 0 SEEN /hpf (0-5)
[2024-11-09 21:09] LABS: Absolute Lymphocyte Count 1.98 X10^3/uL (0.83-4.51); Absolute Neutrophil Count 16.8 X10^3/uL (2.0-7.7); Basophil% 0.5 % (0-1); Eosinophil# 0.05 X10^3/uL; Eosinophils% 0.2 % (0-5); Hematocrit 31.3 % (37-47); Hemoglobin 9.9 g/dL (12.0-15.0); Lymphocyte # 1.98 X10^3/ul (0.83-4.51); Lymphocyte % 9.8 % (19-41); Mean Corp Hgb Conc 31.6 g/dL (32-36); Mean Corpuscular Hgb 28.4 pg (27.0-32.0); Mean Corpuscular Volume 89.9 fL (81-99); Mean Platelet Vol. 10.2 fl (6.2-12.0); Monocyte# 1.08 X10^3/uL; Monocyte% 5.3 % (0-10); NRBC Flagged by Analyzer 0 % (0-5); Neutrophil % 83.2 % (47-70); Platelet Count 280 K/mm3 (150-450); RBC Distribution Width CV 13.5 % (11.6-14.6); RBC Distribution Width SD 44.3 fl (35.1-43.9); Red Blood Count 3.48 M/mm3 (4.2-5.4); White Blood Count 20.2 K/mm3 (4.4-11.0)
[2024-11-09 21:10] LABS: Color, Urine Yellow (Yellow); Glucose, Dipstick 1000 mg/dl (Normal); Ketone-Dipstick Negative (Negative); Leukocyte Esterase-Dipstick Negative /ul (Negative); Nitrite-Dipstick Negative (Negative); Occult Blood-Urine Negative /ul (Negative); Protein-Dipstick Negative (Negative); Urine Bilirubin Dipstick Negative (Negative); Urine Clarity Clear (Clear); Urine Urobilinogen Normal (Normal)
[2024-11-09 21:14] LABS: International Normalized Ratio 1.5; Prothrombin Time (Protime)PT. 17.9 SECONDS (11.7-14.9)
[2024-11-09 21:15] LABS: Partial Thromboplast Time 40.9 Seconds (24.1-36.2)
[2024-11-09 21:23] LABS: Squamous Epithelial Cells - UA 0-5 SEEN /hpf (5-10)
[2024-11-09] MEDS: Morphine 4 MG/ML Syringe IV (21:23)
[2024-11-09] MEDS: Ondansetron 4 MG/2 ML Vial IV (21:23)
[2024-11-09] MEDS: 0.9% Normal Saline (1000mL) 1,000 ML 999 ML IV (21:23)
[2024-11-09 21:24] LABS: ALB/GLOB Ratio 0.7 RATIO (0.9-2.4); AST(SGOT) 18 U/L (15-37); Alanine Aminotransfer ALT/SGPT 21 U/L (13-56); Alkaline Phosphatase 94 U/L (45-117); Anion Gap 8 (5-15); BUN 34 mg/dL (7-18); BUN/Creat Ratio 25.6 RATIO (10-20); Calcium,Total 8.9 mg/dL (8.5-10.1); Chloride 89 mmol/L (98-107); Creatinine, Serum 1.33 mg/dL (0.55-1.02); EST Glomerular Filtration Rate 45 mL/min (>60); Est Glom Filt Rate - Afr Amer 55 mL/min (>60); Estimated Creatinine Clearance 85.69 ml/min; Globulin 4.3 g/dL (2.2-4.2); Glucose 429 mg/dL (74-106); Protein, Total 7.3 g/dL (6.4-8.2); Sodium Level 129 mmol/L (136-145); Troponin-I HS 33 pg/mL (3.0-54.0)
[2024-11-09 22:04] LABS: Base Excess 9 mmol/L (-2 to +2); Bicarbonate 34.9 mmol/L (22-26); Blood Gas Specimen Type ART; Mode Not entered; O2 Delivery Device Cannula; PO2 88 mmHG (75-100); SITE L Radial; SO2 96 % (95-99); Total Carbon Dioxide 37 mmol/L; pCO2 65.2 mmHg (35-45); pH 7.34 (7.35-7.45)
[2024-11-09] MEDS: Ampicillin/Sulbactam 3 GM in 0.9% Normal Saline (100mL MB+) 100 ML IV (22:44)
[2024-11-09] MEDS: Vancomycin HCl 2,000 MG in 0.9% Normal Saline (500mL Bag) 500 ML 250 MG IV (22:45)
--- NOTE | 2024-11-09 23:00 | PCM.HP.STD ---
HPI - General General Date of Admission: 11/09/24 Date of Service: 11/09/24 Chief Complaint: Dyspnea, cough, increased productive sputum, BL LE redness, seeping stasis blisters. 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, uncertain, HFpEF, COPD w/ Chronic Hypoxic and Hypercapnic Respiratory Failure (4L NC), LOGAN on BIPAP, HTN, hLD, GERD, Anxiety and Depression, Tobacco use, Diabetes mellitus type II with chronic neuropathy, Hx VTE who presents to the [facility] ED on 11/09/24 with history of dyspnea worse with exertion with recent cough with productive yellow sputum, subjective chills but no specifically reported fever or measured elevated temperatures worsening over the last 2 to 3 days with some improvement of her dyspnea with rest with elevated blood sugars at home as well as some redness and swelling over the last 48 hours to her lower legs as well as increased drainage but this is also a chronic component however given her respiratory status prompted eventual ED evaluation to be cautious. She does report Workup in the ED included T1 100.4, heart 108, BP 96/45, respiratory rate 20, 84% on room air initially improving to 97% initially on 4 L nasal cannula with most recent repeat vital signs T98.4, heart rate 107, BP 150/53, respiratory rate 20, 94% on 4 L nasal cannula, CBC with WBC 20.2, hemoglobin 9.9, MCV 89.9, platelet 280 with left shift, coags with PT 17.9, INR 1.5, PTT 40.9, ABG with pH 7.34, bicarb 34.9, pCO2 65.2, pO2 88 on nasal cannula, CMP with sodium 129, chloride 89, BUN/creatinine 34/1.33, GFR 45, glucose 429, lactic acid 2.3, hepatic profile not marked appearing, troponin 33, urinalysis with glucose of thousand otherwise unremarkable, acetone negative, blood culture x 2 pending per ED, chest x-ray with slightly central pulmonary vascular prominence otherwise no evidence of any consolidation or acute cardiopulmonary findings. In the ED patient administered 1 L normal saline, Unasyn and vancomycin as well as morphine 4 mg IV x 1, Zofran 4 mg IV x 1. [facility] Medical History Arthritis Non-smoker CHF (congestive heart failure) History of diabetes mellitus Anemia Hypoxia Morbid obesity Venous stasis dermatitis of both lower extremities BMI 60.0-69.9, adult Noncompliance with CPAP treatment Acute on chronic respiratory failure with hypoxia and hypercapnia Perianal abscess Type 2 diabetes mellitus with hyperglycemia Contusion of knee, right Chronic diastolic (congestive) heart failure Depression Diabetes GERD (gastroesophageal reflux disease) BiPAP (biphasic positive airway pressure) dependence Sleep apnea On home oxygen therapy Smoker COPD (chronic obstructive pulmonary disease) Hypertension Congestive heart failure KERRY (acute kidney injury) Chronic respiratory failure with hypoxia Opiate overdose History of left heart catheterization (LHC) (~01/05/19) Type 2 diabetes mellitus Old myocardial infarction Essential hypertension Restrictive lung disease secondary to obesity Dyspnea on exertion Pulmonary embolism Hidradenitis Non-healing open wound of left groin Open wound of vulva with complication Necrotizing soft tissue infection Abscess of vulva Soft tissue abscess of inguinal region Respiratory failure with hypoxia Abscess Hyperglycemia due to type 2 diabetes mellitus NSTEMI (non-ST elevated myocardial infarction) Tobacco abuse Hyperlipidemia Morbid obesity History of MRSA infection Anxiety 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 Home Medications ?Medication ?Instructions ?Recorded ?Last Taken ?Type multivit-iron 18 mg-folic acid 400 1 ea PO DAILY supplement 03/26/17 07/14/23 History mcg-calcium 500 mg-minerals tablet omeprazole 40 mg capsule,delayed 40 mg PO DAILY GERD 12/15/18 07/14/23 History release loratadine 10 mg tablet 10 mg PO DAILY PRN Allergies 03/01/20 07/14/23 History apixaban 5 mg tablet 5 mg PO BID blood thinner 08/20/20 07/14/23 History diltiazem HCl 120 mg 120 mg PO DAILY heart rate 08/20/20 07/14/23 History capsule,extended release 24 hr lisinopril 10 mg tablet 10 mg PO DAILY blood pressure 03/26/21 07/14/23 History metformin 500 mg tablet,extended 1,000 mg PO DAILY diabetes 03/26/21 07/14/23 History release 24 hr metoprolol succinate 25 mg 25 mg PO DAILY blood pressure 03/26/21 07/14/23 History tablet,extended release 24 hr atorvastatin 80 mg tablet 80 mg PO QHS cholesterol 02/07/22 07/14/23 History furosemide 40 mg tablet 80 mg PO DAILY diuretic 09/22/22 07/14/23 History insulin lispro 100 unit/mL 50 unit (0.5 mL) subcut TIDAC #0 mL 09/24/22 07/13/23 Rx subcutaneous pen (Humalog KwikPen (U-100) Insulin) albuterol sulfate 2.5 mg/3 mL 2.5 mg inhalation Q4H PRN SOB 12/09/22 07/10/23 History (0.083 %) solution for nebulization fenofibrate nanocrystallized 145 145 mg PO DAILY CHOLESTEROL 12/09/22 07/14/23 History mg tablet insulin glargine U-300 conc 300 104 unit subcut BID diabetes 07/14/23 07/13/23 History unit/mL (3 mL) subcutaneous pen (Toujeo Max U-300 SoloStar) semaglutide 1 mg/dose (4 mg/3 mL) 1 mg subcut .1XW diabetes 07/14/23 07/13/23 History subcutaneous pen injector (Ozempic) metolazone 2.5 mg tablet 2.5 mg PO .every /th #8 tabs 07/15/23 Unknown Rx oxycodone-acetaminophen 5 mg-325 1 tab PO Q6H PRN pain 3 days #12 01/15/24 Unknown Rx mg tablet (Percocet) tabs potassium chloride 20 mEq See Rx Instructions .Route 08/05/24 Unknown Rx tablet,extended release(part/cryst) .COMPLEX #60 TABLETS duloxetine 60 mg capsule,delayed 60 mg PO DAILY 11/09/24 Unknown History release ergocalciferol (vitamin D2) 1,250 1,250 mcg PO QWEEK 11/09/24 Unknown History mcg (50,000 unit) capsule (Vitamin D2) ferrous sulfate 325 mg (65 mg 325 mg PO DAILY 11/09/24 Unknown History iron) tablet (FeroSul) lorazepam 1 mg tablet 1 mg PO TID 11/09/24 Unknown History Allergy/AdvReac Type Severity Reaction Status Date / Time cyclobenzaprine HCl (From Allergy Hives Verified 11/09/24 19:49 Flexeril) venlafaxine (From Effexor) AdvReac Severe hives Verified 11/09/24 19:49 Family History Father CVA (cerebral vascular accident) Heart disease Diabetes Mother Thyroid disorder Surgical History History of delivery H/O arthroscopic knee surgery History of cholecystectomy Social History household members: none Smoking Status: Current some day smoker tobacco type: cigarettes and e-cigarettes how long ago did patient quit smokin PPD smoker second hand exposure: Yes alcohol intake: never substance use type: does not use caffeine: Yes Type: carbonated beverages Number of servings: 1 and coffee Number of servings: 1 ROS ROS Narrative Admission Review of Systems: CONSTITUTIONAL: No weight loss, fever, + chills, weakness or fatigue. HEENT: Eyes: No visual loss, blurred vision, double vision or yellow sclerae. Ears, Nose, Throat: No hearing loss, sneezing, congestion, runny nose or sore throat. SKIN: No rash or itching, lesions except + significant bilateral lower extremity venous stasis skin changes, stasis blister wounds, seepage. CARDIOVASCULAR: + Increased lower extremity swelling, edema, chronic orthopnea. No chest pain, chest pressure or chest discomfort, palpitations, syncopal events. RESPIRATORY: + Dyspnea, productive cough, occasional wheezing. No mopped assist. GASTROINTESTINAL: No anorexia, nausea, vomiting or diarrhea, abdominal pain, melena, BRBPR. GENITOURINARY: No dysuria, frequency, urgency or retention. NEUROLOGICAL: No headache, dizziness, syncope, paralysis, ataxia, numbness or tingling in the extremities, focal weakness, change in bowel or bladder control, seizure. MUSCULOSKELETAL: + muscle, back pain, joint pain or stiffness. HEMATOLOGIC: + Chronic anemia, easy bleeding/bruising. PSYCHIATRIC: + History of anxiety and depression. ENDOCRINOLOGIC: No reports of sweating, cold or heat intolerance. No polyuria or polydipsia. ALLERGIES: + History of hives, allergic rhinitis. Vital Signs Vital Signs Vital Signs: 11/09/24 19:49 11/09/24 19:49 11/09/24 19:55 Temperature 100.4 F H 100.4 F H Temperature Source Oral Oral Pulse Rate 108 H 108 H Respiratory Rate 20 H 20 H Respiratory Effort Respiratory Depth Respiratory Pattern Blood Pressure 96/45 L 96/45 L Blood Pressure Mean 62 62 Pulse Ox 84 97 93 Oxygen Delivery Method Room Air Nasal Cannula Nasal Cannula Oxygen Flow Rate (L/min) 4 4 11/09/24 19:55 11/09/24 20:20 11/09/24 20:20 Temperature Temperature Source Pulse Rate Respiratory Rate Respiratory Effort Short of Breath Labored Respiratory Depth Shallow Respiratory Pattern Tachypnea Blood Pressure Blood Pressure Mean Pulse Ox 93 93 Oxygen Delivery Method Nasal Cannula Nasal Cannula Nasal Cannula Oxygen Flow Rate (L/min) 4 4 4 11/09/24 20:45 11/09/24 21:00 11/09/24 22:00 Temperature Temperature Source Pulse Rate 103 H 104 H 107 H Respiratory Rate 21 H 20 H 20 H Respiratory Effort Respiratory Depth Respiratory Pattern Blood Pressure 129/34 H 116/54 L 146/80 H Blood Pressure Mean 65 74 98 Pulse Ox 93 95 94 Oxygen Delivery Method Nasal Cannula Oxygen Flow Rate (L/min) 4 11/09/24 22:52 Temperature 98.4 F Temperature Source Pulse Rate 107 H Respiratory Rate 20 H Respiratory Effort Respiratory Depth Respiratory Pattern Blood Pressure 150/53 H Blood Pressure Mean 85 Pulse Ox 92 Oxygen Delivery Method Oxygen Flow Rate (L/min) Weight Weight: 383 lb 9.669 oz Body Mass Index (BMI) 63.8 Physical Exam Narrative Physical Examination: General: Awakens to stimuli and discussion, alert when she is awake, oriented to self, place and recent events but is very fatigued and will fall back asleep easily, remains cooperative, seated upright in the ED bed in no apparent distress. Skin: Normal color, normal turgor, no icterus, no cyanosis except for significant bilateral lower extremity venous stasis skin changes, chronic significant edema pedal to proximal stratton, erythematous lichenified skin noted, bilateral venous stasis blisters with wounds with seepage, no foul odor. HEENT: AT/NC, EOMI, PERRLA, mildly dry MM, no carotid bruits, unable to discern JVD given thickened neck. Lungs: Significantly diminished, greater bases, occasional end expiratory wheeze but not severe, mildly increased respiratory rate but no distress, mildly rhonchorous, no rales. Heart: Mildly tachycardic with regular rhythm; no gallop, rub audible. Abdomen: Soft, morbidly obese, NTTP, distant BS, difficult to [place]le distention and HSM given habitus. Extremities: No cyanosis, no clubbing, see skin. Neurological: Awakens to stimuli and discussion, alert when she is awake, oriented to self, place and recent events but is very fatigued and will fall back asleep easily, remains cooperative, seated upright in the ED bed in no apparent distress, cognitive function appears intact although patient is fatigued; pupils equally reactive to light and accommodation, cranial nerves grossly normal, moving all 4 extremities, no focal deficits, strength severely globally decreased. Psychiatric: Affect appears fatigued, no acute evidence of depressive or anxiety feelings but does have underlying history. Results Lab / Micro Data 11/09/24 20:00 11/09/24 20:00 Labs: Laboratory Results - last 24 hr 11/09/24 20:00: WBC 20.2 H, RBC 3.48 L, Hgb 9.9 L, Hct 31.3 L, MCV 89.9, MCH 28.4, MCHC 31.6 L, RDW Std Deviation 44.3 H, RDW Coeff of Darrion 13.5, Plt Count 280, MPV 10.2, Immature Gran % (Auto) 1.000 H, Neut % (Auto) 83.2 H, Lymph % (Auto) 9.8 L, [place] % (Auto) 5.3, Eos % (Auto) 0.2, Baso % (Auto) 0.5, Absolute Neuts (auto) 16.8 H, Absolute Lymphs (auto) 1.98, Nucleated RBC % 0, PT 17.9 H, INR 1.5, APTT 40.9 H, Sodium 129 L, Potassium 4.0, Chloride 89 L, Carbon Dioxide 31.0, Anion Gap 8, BUN 34 H, Creatinine 1.33 H, Estim Creat Clear Calc 85.69, Est GFR (MDRD) Af Amer 55 L, Est GFR (MDRD) Non-Af 45 L, BUN/Creatinine Ratio 25.6 H, Glucose 429 H, Lactic Acid 2.3 H*, Calcium 8.9, Total Bilirubin 0.30, AST 18, ALT 21, Alkaline Phosphatase 94, Troponin I High Sens 33, Total Protein 7.3, Albumin 3.0 L, Globulin 4.3 H, Albumin/Globulin Ratio 0.7 L, Acetone Level NEGATIVE 11/09/24 20:50: Urine Color Yellow, Urine Clarity Clear, Urine pH 6.0, Ur Specific [place] 1.010, Urine Protein Negative, Urine Glucose (UA) 1000 H, Urine Ketones Negative, Urine Occult Blood Negative, Urine Nitrite Negative, Urine Bilirubin Negative, Urine Urobilinogen Normal, Ur Leukocyte Esterase Negative, Urine RBC 0 SEEN, Urine WBC 0 SEEN, Ur Squamous Epith Cells 0-5 SEEN, Urine Bacteria 0 SEEN, Urine Mucus 0 SEEN ABG Data ABG results: ABG 11/09/24 22:00 Specimen Type ART Sample Site L Radial pH 7.34 L Bicarbonate Actual 34.9 H Total CO2 37 Base Excess 9 H O2 Saturation 96 O2 % 6.0 ABG pCO2 65.2 H ABG pO2 88 Meño Test N/A O2 Delivery Device Cannula Vent Mode Not entered Imaging Radiology Impression Chest X-Ray 11/09/24 20:25 IMPRESSION: Slight central pulmonary vascular prominence. Electronically Signed: Gilbert Jameson DO at 21:22 EST Reading Location ID and State: [facility] / [place] Tel [phone], Service support , Assessment & Plan Assessment/Plan (1) Cellulitis of leg: QUALIFIERS: Laterality: left Qualified Code(s): L03.116 - Cellulitis of left lower limb PLAN: Plan The patient is a 49 y/o F w/ PMHx: Morbid obesity, Chronic anemia/iron deficiency anemia, CKD stage II versus III, uncertain, HFpEF, COPD w/ Chronic Hypoxic and Hypercapnic Respiratory Failure (4L NC), LOGAN on BIPAP, HTN, hLD, GERD, Anxiety and Depression, Tobacco use, Diabetes mellitus type II with chronic neuropathy, Hx VTE who presents to the [facility] ED on 11/09/24 with history of dyspnea worse with exertion with recent cough with productive yellow sputum, subjective chills but no specifically reported fever or measured elevated temperatures worsening over the last 2 to 3 days with some improvement of her dyspnea with rest with elevated blood sugars at home as well as some redness and swelling over the last 48 hours to her lower legs as well as increased drainage but this is also a chronic component however given her respiratory status prompted eventual ED evaluation to be cautious. #1. Suspected Acute Bronchitis with underlying Chronic Hypoxic and Hypercapnic Respiratory Failure (4L NC) complicated by underlying COPD as well as possible #2: Will admit to medical surgical floor, will maintain on home 4 L nasal cannula supplementation, will maintain on ATC budesonide, PRN albuterol, continue as noted BSA w/ IV Vanc and Zosyn given notable resistance history/MRSA history with BL LE concern for cellulitis and stasis wounds but de-escalate as able, maintain HOB, IS parameters, will obtain sputum Cx, respiratory viral panel, requested procalcitonin. #2. Questionable BL LE Extremity Cellulitis with seeping stasis wounds, possibly acutely infected versus significant venous stasis disease: Will maintain on IV Vanco and Zosyn given history but highly suspect #1 is more likely etiology but patient does have significant erythema and states it is worse with increased seepage, will obtain Wound Cx, will obtain Wound MRSA PCR, plan repeat CBC in AM, continue affected extremity elevation above heart when seated and in bed, monitor erythema outline with VS checks, continue home Eliquis regimen, if able to tolerate will place neck Lorenzo wraps with lower extremity elevation, requested procalcitonin. Given number 1 loath to aggressively diurese we will pulse dose with Lasix 40 mg IV x 1. #3. Diabetes mellitus type II w/ Hyperglycemia: Likely hyperglycemia is associated with acute presentation #1, #2, hemoglobin A1c requested, hold oral home regimen, continue home insulin regimen with adjustments as needed although currently attempting to clarify her home long-acting specific dosing, ADA diet, accu checks w/ ISS. #4. Hyponatremia, hypochloremia, unclear exact etiology as patient reports increased swelling thus potentially could be hypervolemic but also #1 the some concern for the opposite spectrum however per review 11/09/2024 weight 383 pounds 9.669 ounces increase significantly from previously 03/27/2024 weight 358 pounds 11 ounces at that time but there has been a significant timeline in between, we will hold off on aggressive IV fluids and as noted above given significant lower extremity swelling and stasis wounds with seepage we will pulse dose with IV Lasix x 1 cautiously and repeat CMP in AM. If with this times 1 pulse dose of diuresis she has significantly worsen labs then obviously may need to hold her diuretic and hydrate at that time. #5. Chronic Kidney Disease Stage II based on previous GFR trending but has vacillated and sometimes been consistent with stage III but unclear if this is acutely, will discern further with further lab assessment: Admission BUN/Cr 34/1.33, GFR 45, baseline renal function primarily 0.8-1.1 but most recently 03/27/2024 had been 1.27, GFR had primarily been in the stage II range but has vacillated intermittently been stage III, most recently prior 03/27/2024 GFR 48, repeat BMP in AM. #5. Chronic normocytic anemia/iron deficiency anemia: Admission hemoglobin 9.9, MCV 89.9, baseline hemoglobin more recently 11 range however has previously been commonly in the 9 range but vacillated, we will continue to trend CBC, continue iron supplementation. #6. Chronic COPD with chronic hypoxic and hypercarbic respiratory failure (4L NC): Will maintain on home oxygen supplementation, continue ATC budesonide therapy, PRN albuterol, HOB, IS parameters. #7. HFpEF: Some mild congestion on the film but not marked appearing and stable on 4 L nasal cannula; however, weight has increased and she is noted swelling to the legs, planned as noted IV pulse dose Lasix 40 mg x 1, will continue otherwise patient home apixaban, statin, metoprolol, lisinopril, Lasix home regimen. #8. Anxiety and depression: We will continue patient home lorazepam and duloxetine home regimen. #9. Hypertension: Continue home regimen including diltiazem, lisinopril, metoprolol, Lasix with pulse dose IV Lasix x 1 as noted above, PRN hydralazine. #10. Hyperlipidemia: Continue home statin and fenofibrate regimen. #11. History of VTE: We will continue patient home apixaban regimen. #12. GERD: We will continue patient home PPI. #13. Allergic rhinitis: Will temporally hold patient as needed loratadine regimen. #14. LOGAN: BiPAP nightly will be ordered although patient does have a history of noncompliance for it noted in her chart. #15. Tobacco Abuse: Encouraged cessation, inpatient consultation per RT, NR if desired. #16. DVT prophylaxis: We will continue patient home Eliquis regimen. #17. CODE status: Patient JAKE is her daughter she notes and living will is she believes in place but uncertain. Discussed CODE status at length including difference between FULL code, DNR-CCA and DNR-CC status. Following discussions about the differences in these status, requested Full Code status. Advanced Care Planning Face to Face Time: 16 minutes. Charges/Coding Visit Charges Inpatient E&M: 29255 Init Hosp L3 Procedures Hospitalists Procedures: 63072 Advncd Care Plan 30 Min
[2024-11-09 23:33] LABS: Magnesium 1.1 mg/dL (1.6-2.6); Phosphorus 2.3 mg/dL (2.5-4.9)
[2024-11-09 23:54] LABS: Procalcitonin 0.27 ng/mL (0.00-0.09)
[2024-11-10] VITALS (15 sets, daily range): BP systolic 95–123; BP diastolic 60–74; PULSE 76–120; RESP 12–23; TEMP 36.1–36.7; O2SAT 94–99; BMI 64.0
[2024-11-10] MEDS: Insulin Lispro 100 UNIT/ML INSULN.PEN 10 UNIT SC (00:12)
[2024-11-10 00:27] LABS: Reflex Lactate? Y
[2024-11-10 02:02] LABS: Lactic Acid 1.1 mmol/L (0.4-1.9)
[2024-11-10] MEDS: Furosemide 40 MG/4 ML Vial IV (02:17)
[2024-11-10 05:57] LABS: Absolute Lymphocyte Count 2.08 X10^3/uL (0.83-4.51); Absolute Neutrophil Count 16.7 X10^3/uL (2.0-7.7); Basophil% 0.5 % (0-1); Eosinophil# 0.09 X10^3/uL; Eosinophils% 0.4 % (0-5); Hematocrit 31.6 % (37-47); Hemoglobin 9.5 g/dL (12.0-15.0); Lymphocyte # 2.08 X10^3/ul (0.83-4.51); Lymphocyte % 10.2 % (19-41); Mean Corp Hgb Conc 30.1 g/dL (32-36); Mean Corpuscular Hgb 27.7 pg (27.0-32.0); Mean Corpuscular Volume 92.1 fL (81-99); Mean Platelet Vol. 10.1 fl (6.2-12.0); Monocyte# 1.13 X10^3/uL; Monocyte% 5.6 % (0-10); NRBC Flagged by Analyzer 0 % (0-5); Neutrophil # 16.73 X10^3/uL (2.7-7.7); Neutrophil % 82.4 % (47-70); Platelet Count 263 K/mm3 (150-450); RBC Distribution Width CV 13.4 % (11.6-14.6); RBC Distribution Width SD 45.4 fl (35.1-43.9); Red Blood Count 3.43 M/mm3 (4.2-5.4); White Blood Count 20.3 K/mm3 (4.4-11.0)
[2024-11-10] MEDS: LORazepam 1 MG Tablet PO (05:57)
[2024-11-10 06:21] LABS: ALB/GLOB Ratio 0.7 RATIO (0.9-2.4); AST(SGOT) 12 U/L (15-37); Alanine Aminotransfer ALT/SGPT 17 U/L (13-56); Albumin, Serum 2.8 g/dL (3.2-5.0); Alkaline Phosphatase 74 U/L (45-117); Anion Gap 5 (5-15); BUN 33 mg/dL (7-18); BUN/Creat Ratio 27.5 RATIO (10-20); Calcium,Total 8.4 mg/dL (8.5-10.1); Chloride 94 mmol/L (98-107); EST Glomerular Filtration Rate 51 mL/min (>60); Est Glom Filt Rate - Afr Amer 62 mL/min (>60); Estimated Creatinine Clearance 95.12 ml/min; Globulin 4.2 g/dL (2.2-4.2); Glucose 321 mg/dL (74-106); Sodium Level 132 mmol/L (136-145)
[2024-11-10] MEDS: Piperacil/Tazobactam 3.375 GM in 0.9% Normal Saline (50mL MB+) 50 ML IV ×3 (07:06→20:10)
[2024-11-10 07:20] LABS: Bedside Glucose 417 mg/dL (74-106)
[2024-11-10] MEDS: Budesonide Respules 0.5 MG/2 ML AMPUL.NEB. INHALATION ×2 (07:21→19:52)
[2024-11-10 07:26] LABS: BNP,B-Type NATRIURETIC PEPTIDE 20.5 pg/mL (0-100)
[2024-11-10] MEDS: Insulin Lispro 100 UNIT/ML INSULN.PEN 50 UNIT SC ×2 (07:48→16:01)
[2024-11-10] MEDS: Insulin Lispro 100 UNIT/ML INSULN.PEN SC ×4 (07:49→22:40)
[2024-11-10 08:12] LABS: Bedside Glucose 309 mg/dL (74-106)
[2024-11-10] MEDS: Potassium Chloride Oral Tablet 20 MEQ PO ×2 (08:49→17:15)
[2024-11-10] MEDS: Ferrous Sulfate 325 MG Tablet PO (08:49)
[2024-11-10] MEDS: Fenofibrate 145 MG Tablet PO (08:49)
--- NOTE | 2024-11-10 09:03 | PN.HOSP_ITS ---
Reason for Visit Reason for Visit: Shortness of breath/cough/increased sputum production/bilateral lower extremity redness right great toe than left Subjective Subjective Patient with no complaints overnight however somnolence this morning. Was on her BiPAP. Nursing called me later she was sleepy so we did obtain a blood gas and she was slightly acidotic so she will remain on BiPAP. Nursing did states she will wake up some and interact more appropriately. She is chronically oxygen dependent on 4 L at baseline. Objective Data Objective Data Vital Signs: Vital Signs Temp Pulse Resp BP Pulse Ox O2 Del Method O2 Flow Rate 97 F L 93 20 H 116/74 95 CPAP 4 11/10/24 07:42 11/10/24 07:42 11/10/24 07:42 11/10/24 07:42 11/10/24 07:42 11/10/24 08:00 11/10/24 01:20 FiO2 40 11/10/24 07:42 Oxygen Flow Rate (L/min) 4 Oxygen Delivery Method CPAP Weight: 174.4 kg Body Mass Index (BMI) 64.0 Intake & Output: Intake and Output for Last 24 Hours 11/08/24 11/09/24 11/10/24 23:59 23:59 23:59 Intake Total 1000 / 1000 652 / 652 Output Total 400 / 400 Balance 1000 / 1000 252 / 252 Lab / Micro Data 11/10/24 05:14 11/10/24 05:14 Labs: Laboratory Results - last 24 hr 11/09/24 20:00: WBC 20.2 H, RBC 3.48 L, Hgb 9.9 L, Hct 31.3 L, MCV 89.9, MCH 28.4, MCHC 31.6 L, RDW Std Deviation 44.3 H, RDW Coeff of Darrion 13.5, Plt Count 280, MPV 10.2, Immature Gran % (Auto) 1.000 H, Neut % (Auto) 83.2 H, Lymph % (Auto) 9.8 L, [place] % (Auto) 5.3, Eos % (Auto) 0.2, Baso % (Auto) 0.5, Absolute Neuts (auto) 16.8 H, Absolute Lymphs (auto) 1.98, Nucleated RBC % 0, PT 17.9 H, INR 1.5, APTT 40.9 H, Sodium 129 L, Potassium 4.0, Chloride 89 L, Carbon Dioxide 31.0, Anion Gap 8, BUN 34 H, Creatinine 1.33 H, Estim Creat Clear Calc 85.69, E st GFR (MDRD) Af Amer 55 L, Est GFR (MDRD) Non-Af 45 L, BUN/Creatinine Ratio 25.6 H, Glucose 429 H, Lactic Acid 2.3 H*, Calcium 8.9, Phosphorus 2.3 L, M agnesium 1.1 L, Total Bilirubin 0.30, AST 18, ALT 21, Alkaline Phosphatase 94, Troponin I High Sens 33, Total Protein 7.3, Albumin 3.0 L, Globulin 4.3 H, A lbumin/Globulin Ratio 0.7 L, Procalcitonin 0.27 H, Acetone Level NEGATIVE 11/09/24 20:01: POC Glucose 417 H 11/09/24 20:50: Urine Color Yellow, Urine Clarity Clear, Urine pH 6.0, Ur Specific [place] 1.010, Urine Protein Negative, Urine Glucose (UA) 1000 H, Urine Ketones Negative, Urine Occult Blood Negative, Urine Nitrite Negative, Urine Bilirubin Negative, Urine Urobilinogen Normal, Ur Leukocyte Esterase Negative, Urine RBC 0 SEEN, Urine WBC 0 SEEN, Ur Squamous Epith Cells 0-5 SEEN, Urine Bacteria 0 SEEN, Urine Mucus 0 SEEN 11/10/24 01:32: Lactic Acid 1.1 11/10/24 05:14: WBC 20.3 H, RBC 3.43 L, Hgb 9.5 L, Hct 31.6 L, MCV 92.1, MCH 27.7, MCHC 30.1 L, RDW Std Deviation 45.4 H, RDW Coeff of Darrion 13.4, Plt Count 263, MPV 10.1, Immature Gran % (Auto) 0.900, Neut % (Auto) 82.4 H, Lymph % (Auto) 10.2 L, [place] % (Auto) 5.6, Eos % (Auto) 0.4, Baso % (Auto) 0.5, Absolute Neuts (auto) 16.7 H, Absolute Lymphs (auto) 2.08, Nucleated RBC % 0, Sodium 132 L, Potassium 4.0, Chloride 94 L, Carbon Dioxide 33.0 H, Anion Gap 5, BUN 33 H, C reatinine 1.20 H, Estim Creat Clear Calc 95.12, Est GFR (MDRD) Af Amer 62, Est GFR (MDRD) Non-Af 51 L, BUN/Creatinine Ratio 27.5 H, Glucose 321 H, Calcium 8.4 L, Total Bilirubin 0.40, AST 12 L, ALT 17, Alkaline Phosphatase 74, B- Natriuretic Peptide 20.5, Total Protein 7.0, Albumin 2.8 L, Globulin 4.2, A lbumin/Globulin Ratio 0.7 L 11/10/24 07:38: POC Glucose 309 H Micro: Microbiology 11/10/24 03:10 Urine Catheter - Catheter Legionella Antigen - Final 11/10/24 03:10 Urine Catheter - Catheter Streptococcus pneumoniae Antigen (M - Final 11/10/24 01:08 Wound - Leg, Right Skin and Soft Tissue MRSA/MSSA (PCR - Final Meth. resistant Staph. aureus Staphylococcus aureus 11/10/24 01:58 Mucosa - Nasopharyngeal Respiratory Panel (PCR) - Final ABG Data ABG results: ABG 11/09/24 22:00 Specimen Type ART Sample Site L Radial pH 7.34 L Bicarbonate Actual 34.9 H Total CO2 37 Base Excess 9 H O2 Saturation 96 O2 % 6.0 ABG pCO2 65.2 H ABG pO2 88 Meño Test N/A O2 Delivery Device Cannula Vent Mode Not entered Radiography Diagnostic Testing: Radiology Impression Chest X-Ray 11/09/24 20:25 IMPRESSION: Slight central pulmonary vascular prominence. Electronically Signed: Gilbert Jameson DO at 21:22 EST Reading Location ID and State: [address] [place] [address] Tel [phone], Service support , Physical Exam Const no apparent distress and well nourished; Negative for average body habitus or healthy appearing Constitutional Narrative: Alert but sleepy middle-aged, white female, lying in bed on BiPAP, appears much older than stated age, morbidly obese, does not appear toxic and currently looks comfortable HEENT head/scalp atraumatic and moist oral mucous membranes HEENT Narrative: Mallampati 4, no thrush Head and Scalp: normocephalic Resp normal respiratory effort, no retractions, no use of accessory muscles and clear to auscultation bilaterally Resp Narrative: Severely diminished diffusely but no adventitious sounds noted at this time Auscultation: Negative for rales, rhonchi or wheezes Cardio regular rate, regular rhythm, S1 normal heart sound, S2 normal heart sound, no murmurs, no rub, no gallops and no clicks Cardio Narrative: Heart tones are distant GI normal to inspection, nondistended, normoactive bowel sounds, soft to palpation and non-tender GI Narrative: Large protuberant abdomen Extremity Extremity Narrative: Bilateral lower extremity edema, Lorenzo bandages in place, erythema noted at the proximal aspect of the Lorenzo bandage on the right with outlined area demarcated well and no extensions of erythema outside of this at this time. Neuro moves all extremities Neuro Narrative: Patient sleepy at the time my evaluation Psych Psych Narrative: Affect is flat Assessment & Plan Assessment/Plan (1) MRSA cellulitis of left foot: (2) Acute on chronic heart failure with normal ejection fraction: (3) Acute on chronic respiratory failure with hypoxia and hypercapnia: PLAN: Plan MRSA lower extremity cellulitis -Cultures already positive for Staph aureus -Add vancomycin -Will continue Zosyn for now -Wound care consultation -Elevate as able -May need ID involvement depending on finalized cultures Cough/shortness of breath with acute on chronic hypoxic and hypercapnic respiratory failure secondary to suspected bronchitis and mild acute on chronic HFpEF -Baseline oxygen requirement is 4 L nasal cannula -Currently on 5 L nasal cannula with mild hypoxemia. Strep pneumo and Legionella antigens are negative -COVID/flu/RSV negative -Respiratory viral panel is unremarkable -Continue broad-spectrum antibiotics with Vanco and Zosyn -Continue aggressive pulmonary toilet -Continue aerosolized budesonide -Was given 1 dose of IV Lasix today and restarted on home dose -Will do a evaluate tomorrow for further IV diuresis -I-S -Add Acapella -Sputum cultures ordered but not able to produce -Procalcitonin is only slightly elevated at 0.27 -Does also have history of Staph aureus pneumonia -I did get a blood gas earlier today and pH was 733 with a pCO2 of 67.1 and pO2 of 143 so she is not super far off her baseline but she will remain on BiPAP while somnolent with naps and at night for now -May remove as mental status improves Hyponatremia -Improved with diuresis -Serum bicarb is actually a little bit lower than her baseline -Continue her oral Lasix 80 mg daily and reassess tomorrow consider IV Lasix depending on results [id number] -Hemoglobin A1c is 10.4 -Will continue home regimen for now as I suspect diet will be altered while she is here -Will likely need to make changes in her insulin regimen once I have more data -Carb controlled/cardiac -SSI as ordered CKD stage II -Stable COPD -On chronic oxygen as above -Continue therapy as noted above Essential hypertension/hyperlipidemia -Continue home statin -Continue home fenofibrate -Continue home diltiazem -Continue home lisinopril -Continue home metoprolol -Continue home Lasix -As needed hydralazine available GERD -Continue home PPI Allergic rhinitis -Hold home loratidine LOGAN/obesity hypoventilation syndrome -BiPAP with naps and nocturnally and oxygen bleed History of DVT -Continue home apixaban Anxiety/depression -Continue home regimen Tobacco abuse -Ongoing issues with this -Recommend cessation -Nicotine patch available if needed DVT prophylaxis -Home Eliquis CODE STATUS Full code Charges/Coding Visit Charges Inpatient E&M: 41235 Subs Hosp L2
[2024-11-10] MEDS: Metoprolol(XL)Succ 25 MG Tablet PO (10:37)
[2024-11-10] MEDS: DULoxetine Hcl 60 MG Capsule PO (10:37)
[2024-11-10] MEDS: Furosemide 80 MG Tablet PO (10:37)
[2024-11-10] MEDS: APIXABAN 5 MG TABLET PO ×2 (10:38→22:52)
[2024-11-10] MEDS: Pantoprazole Sodium 40 MG Tablet PO (10:38)
[2024-11-10] MEDS: Lisinopril 10 MG Tablet PO (10:38)
[2024-11-10] MEDS: dilTIAZem CD 120 MG Capsule PO (10:38)
[2024-11-10 10:40] LABS: Hemoglobin A1c 10.4 % (3.8-5.6)
--- NOTE | 2024-11-10 11:05 | CASEMGMT ---
Addendum entered by Raul Morales 11/10/24 11:18: Palliative Care confirms the pt is active with their services. Original Note: RN CM Assessment ? Face to Face with patient for initial?transition planning/care coordination assessment. RN CM introduced self and role at [facility], pt shakes her head understanding. Pt is currently on PAP therapy and is drowsy. Patient states to call the patient daughter for an initial assessment. A telephone call to Naveed Gordon at this time, who states agreeable to answering this RN CM questions for assessment. Care providers, pharmacy, and demographics verified. ? Admitting dx: ?bronchitis, cellulitis LACE Strata: 2 PCP: ?Delmy Landon Specialists: ?Pt daughter denies Preferred Pharmacy: ?[facility] Insurance: ?[facility], [facility] Prescription Benefit: ?Yes LNOK: ?Naveed Gordon (Daughter), Remedios Wallace (Mother - Lives in [place]) Living Arrangements: ?patient lives alone in a mobile home with four steps to enter. Naveed states that she is on the same property as her mother in a separate mobile home. ADLs/IADLs:?Naveed states that the patient requires some assistance and that she can assist the patient at home. Transportation: ?patient daughter states the patient has never driven and that she provides transportation. Denies concerns DME: ?The patient wears home oxygen through [address]. Telephone call to [facility] who states that the patient current order states 5 L continuous with NIV at night. Naveed states that the patient has a concentrator, portable oxygen concentrator, and a pulse oximeter. Patient daughter also states that the patient takes insulin shots and has a continuous blood glucose monitor as well as a blood glucose monitor as a backup. patient also has a medical alert system, front wheeled walker, shower chair with grab bars, lift chair, and is working on getting a hospital bed. HHC/SNF: ?Naveed states the patient is approved for home aides through the patient insurance, but has not initiated this yet. Denies SNF history. Community resources: patient is active with [facility] and has a showcase maker (Brandy Ross @ [phone]). TC to the CM at this time, but there was no answer, VM left. Palliative care: Pt daughter states that the pt is active with Palliative Care services. E-Mail sent to [facility] to verify. ETOH/Smoking: Naveed states that the pt does not drink alcohol. Naveed states that the patient vapes every day. Plan: TBD. Anticipate eventual return home with assistance from pt daughter, HH, Palliative care, and [facility] resources. Follow for additional oxygen needs. There is no 6-click score entered. PT and OT are ordered and pending. Pt daughter states that the pt will most likely decline SNF needs but would be interested in skilled HHC. CM and SW to continue to follow. Dorys Morales RN CM
[2024-11-10] MEDS: FLU VACC 2024-25(6MOS UP)/PF 45 MCG/0.5 ML SYRINGE IM (11:55)
[2024-11-10 12:00] LABS: Base Excess 10 mmol/L (-2 to +2); Bicarbonate 35.5 mmol/L (22-26); Blood Gas Specimen Type ART; Comment AVAPS 25 10; Mode Not entered; O2 Delivery Device BiPAP; PEEP 8; PO2 143 mmHG (75-100); RR 12; SITE R Brach; SO2 99 % (95-99); Total Carbon Dioxide 38 mmol/L; pCO2 67.1 mmHg (35-45); pH 7.33 (7.35-7.45)
[2024-11-10 12:25] LABS: Bedside Glucose 187 mg/dL (74-106)
--- NOTE | 2024-11-10 12:57 | WOUNDNOTE ---
wound photo: left great toe callous
--- NOTE | 2024-11-10 12:57 | WOUNDNOTE ---
wound photo: left lower leg
--- NOTE | 2024-11-10 12:58 | WOUNDNOTE ---
wound photo: right lower leg
--- NOTE | 2024-11-10 16:24 | NURSING ---
spoke to idalia about home medications. She stated she will confirm the medication that she takes once a week on
[2024-11-10 16:56] LABS: Bedside Glucose 226 mg/dL (74-106)
[2024-11-10] MEDS: Magnesium Sulfate 4gm/100mL 4 GM/100 ML IV.SOLN. IV (19:11)
[2024-11-10] MEDS: Atorvastatin Calcium 80 MG Tablet PO (22:51)
[2024-11-10] MEDS: Na Biphos/Potassium Phosphate PACKET 1 PACKET PO (22:52)
[2024-11-10 22:59] LABS: Bedside Glucose 200 mg/dL (74-106)
[2024-11-10] MEDS: Acetaminophen 325 MG Tablet 650 MG PO (23:05)
[2024-11-11] VITALS (15 sets, daily range): BP systolic 96–114; BP diastolic 40–77; PULSE 71–89; RESP 12–18; TEMP 35.8–36.8; O2SAT 92–99; BMI 64.3
[2024-11-11] MEDS: Vancomycin HCl 2,000 MG in 0.9% Normal Saline (500mL Bag) 500 ML 250 MG IV ×3 (00:14→23:58)
--- NOTE | 2024-11-11 04:31 | PCM.RX.CS ---
Consult Antibiotic Management Pharmacy has been consulted to manage selected antibiotic: Vancomycin Type of Intervention Type of Consult: New start Labs Labs: Sodium 132 mmol/L (136-145) L 11/10/24 05:14 Potassium 4.0 mmol/L (3.5-5.1) 11/10/24 05:14 Chloride 94 mmol/L (98-107) L 11/10/24 05:14 Carbon Dioxide 33.0 mmol/L (21.0-32.0) H 11/10/24 05:14 Anion Gap 5 (5-15) 11/10/24 05:14 BUN 33 mg/dL (7-18) H 11/10/24 05:14 Creatinine 1.20 mg/dL (0.55-1.02) H 11/10/24 05:14 Est GFR (MDRD) Af Amer 62 mL/min (>60) 11/10/24 05:14 Est GFR (MDRD) Non-Af 51 mL/min (>60) L 11/10/24 05:14 BUN/Creatinine Ratio 27.5 RATIO (10-20) H 11/10/24 05:14 Glucose 321 mg/dL (74-106) H 11/10/24 05:14 Microbiology Microbiology: Microbiology 11/10/24 01:08 Wound - Leg, Right Gram Stain - Final 11/10/24 11:39 Mucosa - Nasopharyngeal SARS-CoV-2, Influenza & RSV (PCR) - Final 11/10/24 03:10 Urine Catheter - Catheter Legionella Antigen - Final 11/10/24 03:10 Urine Catheter - Catheter Streptococcus pneumoniae Antigen (M - Final 11/10/24 01:08 Wound - Leg, Right Skin and Soft Tissue MRSA/MSSA (PCR - Final Meth. resistant Staph. aureus Staphylococcus aureus 11/10/24 01:58 Mucosa - Nasopharyngeal Respiratory Panel (PCR) - Final Dosing Weight Weight used for dosin.4 kg Estimated Creatinine Clearance Estimated Creatinine Clearance: 95 Goal Trough Goal Trough: 15-20 mcg/mL Pharmacy Plan for Drug Dosing Pharmacy Plan for Drug Dosing: Pharmacy Service will continue to monitor and adjust dosing as required. 2000MG LOADING DOSE 11/11 @ 0014. START 1250MG Q8H AND DRAW TROUGH PRIOR TO 4TH DOSE Follow-Up Labs Follow-Up Labs: Trough: Vancomycin Date/Time Labs Ordered Labs to be done on [date and time ordered]: 11/12 @ 0000
[2024-11-11 04:34] LABS: Absolute Lymphocyte Count 1.71 X10^3/uL (0.83-4.51); Absolute Neutrophil Count 12.3 X10^3/uL (2.0-7.7); Basophil# 0.07 X10^3/uL; Basophil% 0.5 % (0-1); Eosinophil# 0.39 X10^3/uL; Eosinophils% 2.5 % (0-5); Hematocrit 30.3 % (37-47); Lymphocyte # 1.71 X10^3/ul (0.83-4.51); Lymphocyte % 11.2 % (19-41); Mean Corp Hgb Conc 29.7 g/dL (32-36); Mean Corpuscular Hgb 27.8 pg (27.0-32.0); Mean Corpuscular Volume 93.5 fL (81-99); Mean Platelet Vol. 9.9 fl (6.2-12.0); Monocyte# 0.75 X10^3/uL; Monocyte% 4.9 % (0-10); NRBC Flagged by Analyzer 0 % (0-5); Neutrophil # 12.34 X10^3/uL (2.7-7.7); Neutrophil % 80.4 % (47-70); Platelet Count 256 K/mm3 (150-450); RBC Distribution Width CV 13.4 % (11.6-14.6); Red Blood Count 3.24 M/mm3 (4.2-5.4); White Blood Count 15.3 K/mm3 (4.4-11.0)
[2024-11-11 04:59] LABS: ALB/GLOB Ratio 0.6 RATIO (0.9-2.4); AST(SGOT) 18 U/L (15-37); Alanine Aminotransfer ALT/SGPT 17 U/L (13-56); Albumin, Serum 2.7 g/dL (3.2-5.0); Alkaline Phosphatase 62 U/L (45-117); Anion Gap 3 (5-15); BUN 40 mg/dL (7-18); BUN/Creat Ratio 28.4 RATIO (10-20); Calcium,Total 8.1 mg/dL (8.5-10.1); Chloride 95 mmol/L (98-107); Creatinine, Serum 1.41 mg/dL (0.55-1.02); EST Glomerular Filtration Rate 42 mL/min (>60); Est Glom Filt Rate - Afr Amer 51 mL/min (>60); Estimated Creatinine Clearance 80.95 ml/min; Globulin 4.4 g/dL (2.2-4.2); Glucose 197 mg/dL (74-106); Magnesium 2.4 mg/dL (1.6-2.6); Phosphorus 3.6 mg/dL (2.5-4.9); Potassium 4.3 mmol/L (3.5-5.1); Protein, Total 7.1 g/dL (6.4-8.2); Sodium Level 134 mmol/L (136-145)
[2024-11-11] MEDS: Piperacil/Tazobactam 3.375 GM in 0.9% Normal Saline (50mL MB+) 50 ML IV (06:27)
[2024-11-11] MEDS: Na Biphos/Potassium Phosphate PACKET 1 PACKET PO ×2 (06:28→12:47)
--- NOTE | 2024-11-11 07:02 | PCM.RX.CS ---
Consult Antibiotic Management Pharmacy has been consulted to manage selected antibiotic: Vancomycin Type of Intervention Type of Consult: Follow-up Suspected Infection Suspected Infection: Skin/Soft tissue and Pneumonia Labs Labs: Sodium 134 mmol/L (136-145) L 11/11/24 03:50 Potassium 4.3 mmol/L (3.5-5.1) 11/11/24 03:50 Chloride 95 mmol/L (98-107) L 11/11/24 03:50 Carbon Dioxide 35.0 mmol/L (21.0-32.0) H 11/11/24 03:50 Anion Gap 3 (5-15) L 11/11/24 03:50 BUN 40 mg/dL (7-18) H 11/11/24 03:50 Creatinine 1.41 mg/dL (0.55-1.02) H 11/11/24 03:50 Est GFR (MDRD) Af Amer 51 mL/min (>60) L 11/11/24 03:50 Est GFR (MDRD) Non-Af 42 mL/min (>60) L 11/11/24 03:50 BUN/Creatinine Ratio 28.4 RATIO (10-20) H 11/11/24 03:50 Glucose 197 mg/dL (74-106) H 11/11/24 03:50 Microbiology Microbiology: Microbiology 11/10/24 01:08 Wound - Leg, Right Gram Stain - Final 11/10/24 11:39 Mucosa - Nasopharyngeal SARS-CoV-2, Influenza & RSV (PCR) - Final 11/10/24 03:10 Urine Catheter - Catheter Legionella Antigen - Final 11/10/24 03:10 Urine Catheter - Catheter Streptococcus pneumoniae Antigen (M - Final 11/10/24 01:08 Wound - Leg, Right Skin and Soft Tissue MRSA/MSSA (PCR - Final Meth. resistant Staph. aureus Staphylococcus aureus 11/10/24 01:58 Mucosa - Nasopharyngeal Respiratory Panel (PCR) - Final Estimated Creatinine Clearance Estimated Creatinine Clearance: 81 Goal Trough Goal Trough: 15-20 mcg/mL Pharmacy Plan for Drug Dosing Pharmacy Plan for Drug Dosing: DAILY ASSESSMENT Current Vancomycin Dose: 1250mg Q8H scheduled to start @ 0830 11/11/24 Number of Doses Received: 2000mg x2 (11/09 @ 2245 and 11/11 @ 0014) Current Renal Function: sCr 1.41 Renal Function Trend: slightly declined since admission Lab/Micro: pending, staph aureus (+) Any Change in Vanc Plan: Yes - adjust Vancomycin dosing to 2000mg Q12H with next dose @ 1200 11/11/24 Pending Level: Vancomycin trough @ 1130 11/12/24 Pharmacy Service will continue to monitor and adjust dosing as required. Follow-Up Labs Follow-Up Labs: Trough: Vancomycin (11/12/24 @ 1130)
[2024-11-11] MEDS: Budesonide Respules 0.5 MG/2 ML AMPUL.NEB. INHALATION ×2 (07:23→19:29)
[2024-11-11] MEDS: Insulin Lispro 100 UNIT/ML INSULN.PEN SC ×3 (08:17→16:32)
[2024-11-11] MEDS: Insulin Lispro 100 UNIT/ML INSULN.PEN 50 UNIT SC ×3 (08:17→16:32)
[2024-11-11 08:27] LABS: Bedside Glucose 200 mg/dL (74-106)
[2024-11-11] MEDS: DULoxetine Hcl 60 MG Capsule PO (08:44)
[2024-11-11] MEDS: Potassium Chloride Oral Tablet 20 MEQ PO ×2 (08:45→16:34)
[2024-11-11] MEDS: dilTIAZem CD 120 MG Capsule PO ×2 (08:45)
[2024-11-11] MEDS: Lisinopril 10 MG Tablet PO (08:45)
[2024-11-11] MEDS: Pantoprazole Sodium 40 MG Tablet PO (08:45)
[2024-11-11] MEDS: Fenofibrate 145 MG Tablet PO (08:46)
[2024-11-11] MEDS: Ferrous Sulfate 325 MG Tablet PO (08:46)
[2024-11-11] MEDS: Furosemide 80 MG Tablet PO (08:46)
[2024-11-11] MEDS: Metoprolol(XL)Succ 25 MG Tablet PO (08:46)
[2024-11-11] MEDS: APIXABAN 5 MG TABLET PO ×2 (08:46→22:07)
--- NOTE | 2024-11-11 10:37 | PCM.CONS.GEN ---
Assessment & Plan Assessment/Plan (1) Acute on chronic hypoxic respiratory failure: (2) Cellulitis of leg: QUALIFIERS: Laterality: left Qualified Code(s): L03.116 - Cellulitis of left lower limb PLAN: L toe wound, BLE edema and cellulitis. Possible pneumonia/bronchitis, but exam and cxr clear. UAgs neg. BNP normal, but with h/o chronic edema and CHF, would recommend TTE and vascular workup. Consider podiatry eval. Will narrow to vanc/ceftriaxone. Will follow, thank you HPI Consult Data Date of Consult: 11/11/24 HPI Narrative Reason for Consultation: cellulitis HPI Narrative: MACARIO OVERTON, is a 49 F with chronic resp failure, on 4-5L home O2, CKD, CHF, COPD, presented with about a week of increased fatigue, several days increased dyspnea, cough with small amount sputum, BLE redness/swelling/pain/serous drainage. C/o mild chills. RLE worse than LLE. Admitted on vanc/zosyn, feeling a little better. Full ROS performed and neg except as noted above. [facility] Medical History Arthritis Non-smoker CHF (congestive heart failure) History of diabetes mellitus Anemia Hypoxia Morbid obesity Venous stasis dermatitis of both lower extremities BMI 60.0-69.9, adult Noncompliance with CPAP treatment Acute on chronic respiratory failure with hypoxia and hypercapnia Perianal abscess Type 2 diabetes mellitus with hyperglycemia Contusion of knee, right Chronic diastolic (congestive) heart failure Depression Diabetes GERD (gastroesophageal reflux disease) BiPAP (biphasic positive airway pressure) dependence Sleep apnea On home oxygen therapy Smoker COPD (chronic obstructive pulmonary disease) Hypertension Congestive heart failure KERRY (acute kidney injury) Chronic respiratory failure with hypoxia Opiate overdose History of left heart catheterization (LHC) (~01/05/19) Type 2 diabetes mellitus Old myocardial infarction Essential hypertension Restrictive lung disease secondary to obesity Dyspnea on exertion Pulmonary embolism Hidradenitis Non-healing open wound of left groin Open wound of vulva with complication Necrotizing soft tissue infection Abscess of vulva Soft tissue abscess of inguinal region Respiratory failure with hypoxia Abscess Hyperglycemia due to type 2 diabetes mellitus NSTEMI (non-ST elevated myocardial infarction) Tobacco abuse Hyperlipidemia Morbid obesity History of MRSA infection Anxiety 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 Home Medications ?Medication ?Instructions ?Recorded ?Last Taken ?Type multivit-iron 18 mg-folic acid 400 1 ea PO DAILY supplement 03/26/17 07/14/23 History mcg-calcium 500 mg-minerals tablet omeprazole 40 mg capsule,delayed 40 mg PO DAILY GERD 12/15/18 07/14/23 History release loratadine 10 mg tablet 10 mg PO DAILY PRN Allergies 03/01/20 07/14/23 History apixaban 5 mg tablet 5 mg PO BID blood thinner 08/20/20 07/14/23 History diltiazem HCl 120 mg 120 mg PO DAILY heart rate 08/20/20 07/14/23 History capsule,extended release 24 hr lisinopril 10 mg tablet 10 mg PO DAILY blood pressure 03/26/21 07/14/23 History metformin 500 mg tablet,extended 1,000 mg PO DAILY diabetes 03/26/21 07/14/23 History release 24 hr metoprolol succinate 25 mg 25 mg PO DAILY blood pressure 03/26/21 07/14/23 History tablet,extended release 24 hr atorvastatin 80 mg tablet 80 mg PO QHS cholesterol 02/07/22 07/14/23 History furosemide 40 mg tablet 80 mg PO DAILY diuretic 09/22/22 07/14/23 History insulin lispro 100 unit/mL 50 unit (0.5 mL) subcut TIDAC #0 mL 09/24/22 07/13/23 Rx subcutaneous pen (Humalog KwikPen (U-100) Insulin) albuterol sulfate 2.5 mg/3 mL 2.5 mg inhalation Q4H PRN SOB 12/09/22 07/10/23 History (0.083 %) solution for nebulization fenofibrate nanocrystallized 145 145 mg PO DAILY CHOLESTEROL 12/09/22 07/14/23 History mg tablet insulin glargine U-300 conc 300 104 unit subcut BID diabetes 07/14/23 07/13/23 History unit/mL (3 mL) subcutaneous pen (Toujeo Max U-300 SoloStar) semaglutide 1 mg/dose (4 mg/3 mL) 1 mg subcut .1XW diabetes 07/14/23 07/13/23 History subcutaneous pen injector (Ozempic) metolazone 2.5 mg tablet 2.5 mg PO .every / #8 tabs 07/15/23 Unknown Rx oxycodone-acetaminophen 5 mg-325 1 tab PO Q6H PRN pain 3 days #12 01/15/24 Unknown Rx mg tablet (Percocet) tabs potassium chloride 20 mEq See Rx Instructions .Route 08/05/24 Unknown Rx tablet,extended release(part/cryst) .COMPLEX #60 TABLETS duloxetine 60 mg capsule,delayed 60 mg PO DAILY 11/09/24 Unknown History release ergocalciferol (vitamin D2) 1,250 1,250 mcg PO QWEEK 11/09/24 Unknown History mcg (50,000 unit) capsule (Vitamin D2) ferrous sulfate 325 mg (65 mg 325 mg PO DAILY 11/09/24 Unknown History iron) tablet (FeroSul) lorazepam 1 mg tablet 1 mg PO TID 11/09/24 Unknown History Allergy/AdvReac Type Severity Reaction Status Date / Time cyclobenzaprine HCl (From Allergy Hives Verified 11/09/24 19:49 Flexeril) venlafaxine (From Effexor) AdvReac Severe hives Verified 11/09/24 19:49 Family History Father CVA (cerebral vascular accident) Heart disease Diabetes Mother Thyroid disorder Surgical History History of delivery H/O arthroscopic knee surgery History of cholecystectomy Social History household members: none Smoking Status: Current some day smoker tobacco type: cigarettes and e-cigarettes how long ago did patient quit smokin PPD smoker second hand exposure: Yes alcohol intake: never substance use type: does not use caffeine: Yes Type: carbonated beverages Number of servings: 1 and coffee Number of servings: 1 Physical Exam Const alert, oriented x3 and no apparent distress General Appearance: cooperative HEENT normocephalic and head/scalp atraumatic Eyes PERRL and EOMs intact bilaterally Neck supple and No nodes Resp clear to auscultation bilaterally Auscultation: diminished lung sounds Cardio regular rate and regular rhythm GI soft to palpation, non-tender and non-distended Extremity General Extremity: edema Skin Skin Narrative: Bilat lower leg redness, no warmth, some serous drainage. Neuro CN's II-XII intact bilaterally Lab / Micro Data Attestation: I reviewed the patient's lab results. 11/11/24 03:50 11/11/24 03:50 Labs: Laboratory Results - last 24 hr 11/10/24 05:14: Hemoglobin A1c 10.4 H 11/10/24 11:54: POC Glucose 187 H 11/10/24 15:59: POC Glucose 226 H 11/10/24 22:39: POC Glucose 200 H 11/11/24 03:50: WBC 15.3 H, RBC 3.24 L, Hgb 9.0 L, Hct 30.3 L, MCV 93.5, MCH 27.8, MCHC 29.7 L, RDW Std Deviation 46.0 H, RDW Coeff of Darrion 13.4, Plt Count 256, MPV 9.9, Immature Gran % (Auto) 0.500, Neut % (Auto) 80.4 H, Lymph % (Auto) 11.2 L, [place] % (Auto) 4.9, Eos % (Auto) 2.5, Baso % (Auto) 0.5, Absolute Neuts (auto) 12.3 H, Absolute Lymphs (auto) 1.71, Nucleated RBC % 0, Sodium 134 L, Potassium 4.3, Chloride 95 L, Carbon Dioxide 35.0 H, Anion Gap 3 L, BUN 40 H, Creatinine 1.41 H, Estim Creat Clear Calc 80.95, Est GFR (MDRD) Af Amer 51 L, Est GFR (MDRD) Non-Af 42 L, BUN/Creatinine Ratio 28.4 H, Glucose 197 H, Calcium 8.1 L, Phosphorus 3.6, Magnesium 2.4, Total Bilirubin 0.30, AST 18, ALT 17, Alkaline Phosphatase 62, Total Protein 7.1, Albumin 2.7 L, Globulin 4.4 H, Albumin/Globulin Ratio 0.6 L 11/11/24 08:08: POC Glucose 200 H Micro: Microbiology 11/10/24 01:08 Wound - Leg, Right Gram Stain - Final 11/10/24 11:39 Mucosa - Nasopharyngeal SARS-CoV-2, Influenza & RSV (PCR) - Final 11/10/24 03:10 Urine Catheter - Catheter Legionella Antigen - Final 11/10/24 03:10 Urine Catheter - Catheter Streptococcus pneumoniae Antigen (M - Final 11/10/24 01:08 Wound - Leg, Right Skin and Soft Tissue MRSA/MSSA (PCR - Final Meth. resistant Staph. aureus Staphylococcus aureus 11/10/24 01:58 Mucosa - Nasopharyngeal Respiratory Panel (PCR) - Final ABG Data ABG results: ABG 11/10/24 11:56 Specimen Type ART Sample Site R Brach pH 7.33 L Bicarbonate Actual 35.5 H Total CO2 38 Base Excess 10 H O2 Saturation 99 O2 % 50.0 ABG pCO2 67.1 H* ABG pO2 143 H Respiration Rate 12 O2 Delivery Device BiPAP Vent Mode Not entered Tidal Volume 500.0 POC PEEP 8 Crit Call To/Read Back Yes Blood Gas Notified Whom MARIFER Blood Gas Notified Time 11:58:12 Clinical Comments AVAPS 25 10
[2024-11-11 11:27] LABS: Bedside Glucose 187 mg/dL (74-106)
--- NOTE | 2024-11-11 12:43 | CASEMGMT ---
Addendum entered by Hlalie Jacob 11/11/24 14:56: [facility] called and notified they are at capacity and unable to accept patient. LORENZO GARCÍA into Pt room, pt chose [place] for second option. Pt states has a couple of family members able to assist if would need IV antibiotics at time of DC. LORENZO [facility]. Original Note: LORENZO GARCÍA into pt room, pt resting in no distress. Pt states she would like [facility] services at time of DC. Pt states she previously used [facility] and would like to go with them again if possible, denies wanting list of local [facility] agencies. LORENZO GARCÍA made referral to [facility]. Waiting to hear if Pt is accepted.
[2024-11-11] MEDS: Ceftriaxone 2 GM in 0.9% Normal Saline (50mL MB+) 50 ML IV (12:47)
--- NOTE | 2024-11-11 16:30 | PN.HOSP_ITS ---
Reason for Visit Reason for Visit: Shortness of breath/lower extremity swelling and erythema Subjective Subjective Patient states she is definitely feeling better today. Close to her baseline oxygen which is 4 L currently on 5. States she feels like she is breathing better today. Acknowledges that she needs to quit smoking. Leg swelling seems to be better and pain is improved. Erythematous areas have retracted inside the outlined areas from admission. Objective Data Objective Data Vital Signs: Vital Signs Temp Pulse Resp BP Pulse Ox O2 Del Method O2 Flow Rate 97.1 F L 80 18 114/40 L 98 Nasal Cannula 4 11/11/24 14:00 11/11/24 14:00 11/11/24 14:00 11/11/24 14:00 11/11/24 14:00 11/11/24 14:00 11/11/24 14:00 FiO2 40 11/11/24 07:24 Oxygen Flow Rate (L/min) 4 Oxygen Delivery Method Nasal Cannula Weight: 175.4 kg Body Mass Index (BMI) 64.3 Intake & Output: Intake and Output for Last 24 Hours 11/09/24 11/10/24 11/11/24 23:59 23:59 23:59 Intake Total 1000 / 1000 1452 / 2052 3030 / 3030 Output Total 2400 / 2750 825 / 825 Balance 1000 / 1000 -948 / -698 2205 / 2205 Lab / Micro Data 11/11/24 03:50 11/11/24 03:50 Labs: Laboratory Results - last 24 hr 11/10/24 15:59: POC Glucose 226 H 11/10/24 22:39: POC Glucose 200 H 11/11/24 03:50: WBC 15.3 H, RBC 3.24 L, Hgb 9.0 L, Hct 30.3 L, MCV 93.5, MCH 27.8, MCHC 29.7 L, RDW Std Deviation 46.0 H, RDW Coeff of Darrion 13.4, Plt Count 256, MPV 9.9, Immature Gran % (Auto) 0.500, Neut % (Auto) 80.4 H, Lymph % (Auto) 11.2 L, [place] % (Auto) 4.9, Eos % (Auto) 2.5, Baso % (Auto) 0.5, Absolute Neuts (auto) 12.3 H, Absolute Lymphs (auto) 1.71, Nucleated RBC % 0, Sodium 134 L, Potassium 4.3, Chloride 95 L, Carbon Dioxide 35.0 H, Anion Gap 3 L, BUN 40 H, C reatinine 1.41 H, Estim Creat Clear Calc 80.95, Est GFR (MDRD) Af Amer 51 L, Est GFR (MDRD) Non-Af 42 L, BUN/Creatinine Ratio 28.4 H, Glucose 197 H, Calcium 8.1 L, Phosphorus 3.6, Magnesium 2.4, Total Bilirubin 0.30, AST 18, ALT 17, Alkaline Phosphatase 62, Total Protein 7.1, Albumin 2.7 L, Globulin 4.4 H, A lbumin/Globulin Ratio 0.6 L 11/11/24 08:08: POC Glucose 200 H 11/11/24 11:10: POC Glucose 187 H Micro: Microbiology 11/10/24 01:08 Wound - Leg, Right Gram Stain - Final 11/10/24 01:08 Wound - Leg, Right Wound Culture - Preliminary Staphylococcus aureus 11/10/24 11:39 Mucosa - Nasopharyngeal SARS-CoV-2, Influenza & RSV (PCR) - Final 11/10/24 03:10 Urine Catheter - Catheter Legionella Antigen - Final 11/10/24 03:10 Urine Catheter - Catheter Streptococcus pneumoniae Antigen (M - Final 11/10/24 01:08 Wound - Leg, Right Skin and Soft Tissue MRSA/MSSA (PCR - Final Meth. resistant Staph. aureus Staphylococcus aureus 11/10/24 01:58 Mucosa - Nasopharyngeal Respiratory Panel (PCR) - Final Physical Exam Const alert, oriented x3, no apparent distress and well nourished; Negative for average body habitus or healthy appearing Constitutional Narrative: Alert but sleepy middle-aged, white female, lying in bed on BiPAP, appears much older than stated age, morbidly obese, does not appear toxic and currently looks comfortable HEENT head/scalp atraumatic and moist oral mucous membranes HEENT Narrative: Mallampati 4, dentition is poor, no thrush Head and Scalp: normocephalic Resp normal respiratory effort, no retractions, no use of accessory muscles and clear to auscultation bilaterally Resp Narrative: Severely diminished diffusely but no adventitious sounds noted at this time, extremely distant due to body habitus Auscultation: Negative for rales, rhonchi or wheezes Cardio regular rate, regular rhythm, S1 normal heart sound, S2 normal heart sound, no murmurs, no rub, no gallops and no clicks Cardio Narrative: Heart tones are distant GI normal to inspection, nondistended, normoactive bowel sounds, soft to palpation and non-tender GI Narrative: Large protuberant abdomen Extremity Extremity Narrative: Bilateral lower extremity edema, Lorenzo bandages in place, erythema noted at the proximal aspect of the Lorenzo bandage on the right with outlined area demarcated well and erythema is retracting from surrounding area Neuro oriented x3, moves all extremities and no focal motor deficits Neuro Narrative: Patient sleepy at the time my evaluation Psych Psych Narrative: Affect is flat Assessment & Plan Assessment/Plan (1) MRSA cellulitis of left foot: (2) Acute on chronic heart failure with normal ejection fraction: (3) Acute on chronic respiratory failure with hypoxia and hypercapnia: PLAN: Plan MRSA lower extremity cellulitis -Cultures already positive for Staph aureus -Add vancomycin -Will continue Zosyn for now -Wound care consultation -Elevate as able -May need ID involvement depending on finalized cultures Cough/shortness of breath with acute on chronic hypoxic and hypercapnic respiratory failure secondary to suspected bronchitis and mild acute on chronic HFpEF -Baseline oxygen requirement is 4 L nasal cannula -Currently on 5 L nasal cannula with mild hypoxemia. Strep pneumo and Legionella antigens are negative -COVID/flu/RSV negative -Respiratory viral panel is unremarkable -Continue broad-spectrum antibiotics with Vanco and Zosyn -Continue aggressive pulmonary toilet -Continue aerosolized budesonide -Was given 1 dose of IV Lasix today and restarted on home dose -Will do a evaluate tomorrow for further IV diuresis -I-S -Add Acapella -Sputum cultures ordered but not able to produce -Procalcitonin is only slightly elevated at 0.27 -Does also have history of Staph aureus pneumonia -I did get a blood gas earlier today and pH was 733 with a pCO2 of 67.1 and pO2 of 143 so she is not super far off her baseline but she will remain on BiPAP while somnolent with naps and at night for now -May remove as mental status improves Hyponatremia -Improved with diuresis -Serum bicarb is actually a little bit lower than her baseline -Continue her oral Lasix 80 mg daily and reassess tomorrow consider IV Lasix depending on results TO-[id number] -Hemoglobin A1c is 10.4 -Will continue home regimen for now as I suspect diet will be altered while she is here -Will likely need to make changes in her insulin regimen once I have more data -Carb controlled/cardiac -SSI as ordered CKD stage II -Stable COPD -On chronic oxygen as above -Continue therapy as noted above Essential hypertension/hyperlipidemia -Continue home statin -Continue home fenofibrate -Continue home diltiazem -Continue home lisinopril -Continue home metoprolol -Continue home Lasix -As needed hydralazine available GERD -Continue home PPI Allergic rhinitis -Hold home loratidine LOGAN/obesity hypoventilation syndrome -BiPAP with naps and nocturnally and oxygen bleed History of DVT -Continue home apixaban Anxiety/depression -Continue home regimen Tobacco abuse -Ongoing issues with this -Recommend cessation -Nicotine patch available if needed DVT prophylaxis -Home Eliquis CODE STATUS Full code
[2024-11-11 16:38] LABS: Bedside Glucose 156 mg/dL (74-106)
[2024-11-11] MEDS: Atorvastatin Calcium 80 MG Tablet PO (22:07)
[2024-11-11] MEDS: Insulin Glargine-YFGN 100 UNIT/ML Pen 20 UNIT SC (22:11)
[2024-11-11] MEDS: Acetaminophen 325 MG Tablet 650 MG PO (22:20)
[2024-11-11] MEDS: 0.9% Saline Lock 10 ML Syringe IV ×2 (22:21→23:58)
[2024-11-11 22:34] LABS: Bedside Glucose 127 mg/dL (74-106)
[2024-11-12] VITALS (7 sets, daily range): BP systolic 110–139; BP diastolic 51–90; PULSE 76–91; RESP 12–20; TEMP 36.6–37; O2SAT 94–97; BMI 64.4
[2024-11-12] MEDS: 0.9% Normal Saline (100mL Bag) 100 ML 15 ML IV (00:02)
--- NOTE | 2024-11-12 03:11 | CPS ---
PAP PRESSURES DECREASED TO 16/10 FOR PATIENT COMFORT.
[2024-11-12] MEDS: Budesonide Respules 0.5 MG/2 ML AMPUL.NEB. INHALATION (07:12)
[2024-11-12 07:34] LABS: Absolute Lymphocyte Count 1.75 X10^3/uL (0.83-4.51); Absolute Neutrophil Count 6.5 X10^3/uL (2.0-7.7); Basophil# 0.06 X10^3/uL; Basophil% 0.6 % (0-1); Eosinophils% 4.3 % (0-5); Hematocrit 28.8 % (37-47); Hemoglobin 8.7 g/dL (12.0-15.0); Lymphocyte # 1.75 X10^3/ul (0.83-4.51); Lymphocyte % 18.9 % (19-41); Mean Corp Hgb Conc 30.2 g/dL (32-36); Mean Corpuscular Hgb 27.8 pg (27.0-32.0); Mean Platelet Vol. 10.3 fl (6.2-12.0); Monocyte# 0.45 X10^3/uL; Monocyte% 4.9 % (0-10); NRBC Flagged by Analyzer 0.2 % (0-5); Neutrophil % 70.4 % (47-70); Platelet Count 261 K/mm3 (150-450); RBC Distribution Width CV 13.3 % (11.6-14.6); RBC Distribution Width SD 45.2 fl (35.1-43.9); Red Blood Count 3.13 M/mm3 (4.2-5.4); White Blood Count 9.2 K/mm3 (4.4-11.0)
[2024-11-12] MEDS: Juven (unflavored) Packet 1 PACKET PO ×2 (07:56→17:00)
[2024-11-12] MEDS: Pantoprazole Sodium 40 MG Tablet PO (07:58)
[2024-11-12] MEDS: Ferrous Sulfate 325 MG Tablet PO (07:58)
[2024-11-12] MEDS: Furosemide 80 MG Tablet PO (07:58)
[2024-11-12] MEDS: Potassium Chloride Oral Tablet 20 MEQ PO ×2 (07:58→16:59)
[2024-11-12] MEDS: Metoprolol(XL)Succ 25 MG Tablet PO (07:58)
[2024-11-12] MEDS: Lisinopril 10 MG Tablet PO (07:58)
[2024-11-12] MEDS: DULoxetine Hcl 60 MG Capsule PO (07:59)
[2024-11-12] MEDS: Fenofibrate 145 MG Tablet PO (07:59)
[2024-11-12] MEDS: APIXABAN 5 MG TABLET PO (07:59)
[2024-11-12] MEDS: Insulin Lispro 100 UNIT/ML INSULN.PEN 50 UNIT SC ×3 (08:00→16:59)
[2024-11-12] MEDS: Insulin Glargine-YFGN 100 UNIT/ML Pen 20 UNIT SC (08:01)
[2024-11-12] MEDS: Insulin Lispro 100 UNIT/ML INSULN.PEN SC ×3 (08:01→16:59)
[2024-11-12 08:08] LABS: Bedside Glucose 206 mg/dL (74-106)
[2024-11-12 08:19] LABS: Anion Gap 3 (5-15); BUN 30 mg/dL (7-18); Calcium,Total 8.6 mg/dL (8.5-10.1); Chloride 97 mmol/L (98-107); Creatinine, Serum 0.91 mg/dL (0.55-1.02); EST Glomerular Filtration Rate 70 mL/min (>60); Est Glom Filt Rate - Afr Amer 85 mL/min (>60); Estimated Creatinine Clearance 126.01 ml/min; Glucose 191 mg/dL (74-106); Magnesium 2.1 mg/dL (1.6-2.6); Phosphorus 2.3 mg/dL (2.5-4.9); Potassium 4.2 mmol/L (3.5-5.1); Sodium Level 136 mmol/L (136-145)
--- NOTE | 2024-11-12 09:21 | CASEMGMT ---
Pt CM through [facility] ([place]) returns call and states that the pt is active with 14 home delivered meals per week and a medical alert system. [place] states that they working on getting an aide set up for the pt at home. CM updated with pt plan of care at this time.
--- NOTE | 2024-11-12 09:23 | CASEMGMT ---
Addendum entered by Ines Lopez 11/12/24 14:16: Pt to have 2D echo prior to dc. Notified [facility]. Green sheet on chart for dc. Pt to dc on PO atb per ID. Addendum entered by Ines Lopez 11/12/24 11:29: Pt has been declined for care by [facility], [facility], [facility], [facility] and . [facility] has accepted pt for care. LORENZO GARCÍA into pt room, pt made aware of the above. Pt is agreeable to [facility] being her [facility] [employer]. She is aware that there are some agencies who have not responded yet. Pt still agreeable. Pt states her dtr will provide her wound care. Uploaded wound orders to [facility] via [facility]. Addendum entered by Ines Lopez 11/12/24 09:46: LORENZO GARCÍA into pt room, pt aware that [facility] cannot accept her for care. Provided pt with a list created by dc clerical dentist assistant of other options. Pt is agreeable to sending to all available agencies and then letting her know who accepts. LORENZO GARCÍA sent referrals to agencies on the list. Addendum entered by Ines Lopez 11/12/24 09:27: [facility] is unable to accept pt for care. Requested dc clerical dentist assistant create a list for pt for further options. Original Note: LORENZO GARCÍA into pt room, pt sitting up in chair. Clarified with pt provider choice for HH. [facility] is preference. Pt states she has a portable oxygen tank to dc home with. Pt denies any needs at this time. Referral sent to [facility] for SN and PT as [facility]
--- NOTE | 2024-11-12 09:37 | CASEMGMT ---
Discharge Planning A list of?HH providers including quality and resource use data and consistent with the patient's preferred geographic region, medical needs, and insurance network was created in [facility] Guide.? This list was provided to the RN RICKY. Lula Tao, Discharge Planning Asst.
[2024-11-12] MEDS: Ceftriaxone 2 GM in 0.9% Normal Saline (50mL MB+) 50 ML IV (10:30)
[2024-11-12] MEDS: 0.9% Saline Lock 10 ML Syringe IV (10:30)
[2024-11-12 11:39] LABS: Bedside Glucose 328 mg/dL (74-106)
--- NOTE | 2024-11-12 12:17 | ECHOCS_ITS ---
Reason For Study: CHF Procedure This was a 2D Doppler, Color Flow transthoracic echocardiogram. Contrast injection was performed. The study was technically difficult. Exam performed portable in patient room. Left Ventricle Normal LV size. The estimated ejection fraction is 55 %. No evidence for diastolic dysfunction. No regional wall motion abnormalities noted. Right Ventricle Normal RV size. Normal systolic function. Atria The left and right atria are normal. No doppler evidence for ASD. Mitral Valve There is no mitral valve stenosis. No mitral valve insufficiency. Tricuspid Valve There is no tricuspid stenosis. Unable to estimate RV systolic pressure due to inadequate jet, pulmonary artery pressure probably normal. Aortic Valve Trisinus/trileaflet aortic valve. There is no aortic stenosis. No aortic valve insufficiency. Pulmonic Valve There is no pulmonic valvular stenosis. Trivial pulmonic valve insufficiency. Great Vessels Normal aortic root. Pericardium/Pleural No pericardial effusion. Medication Diluted definity 4ml given slow IV push to enhance endocardial definition. MMode/2D Measurements & Calculations LVIDd: 5.5 cm IVSd: 1.1 cm Ao root diam: 3.7 cm LVIDs: 3.6 cm LVPWd: 1.1 cm FS: 33.4 % LAV(MOD-bp): 41.7 ml LVAd ap4: 32.0 cm2 SV(MOD-sp4): 74.8 ml LAV(MOD-bp) Indexed: 15.9 ml/m2 LVLd ap4: 7.2 cm SI(MOD-sp4): 28.6 ml/m2 LAV(MOD-sp2): 39.7 ml EDV(MOD-sp4): 118.0 ml LAV(MOD-sp4): 36.0 ml EDV(sp4-el): 121.8 ml LVAs ap4: 18.1 cm2 LVLs ap4: 6.1 cm ESV(MOD-sp4): 43.2 ml ESV(sp4-el): 45.6 ml EF(MOD-sp4): 63.4 % EF(sp4-el): 62.6 % SV(sp4-el): 76.2 ml LA A4 area: 17.2 cm2 LA dimension(2D): 4.3 cm TAPSE: 3.1 cm Time Measurements MV dec time: 0.21 sec Doppler Measurements & Calculations MV E max ad: 110.5 cm/sec Lat Peak E' Ad: 11.6 cm/sec Med Peak E' Ad: 10.4 cm/sec MV A max ad: 77.2 cm/sec E/E' lat: 9.5 E/E' med: 10.6 MV E/A: 1.4 MV V2 max: 122.4 cm/sec Ao V2 max: 186.2 cm/sec MV max P.0 mmHg MV dec slope: 518.7 cm/sec2 Ao max P.9 mmHg MV V2 mean: 65.1 cm/sec Ao V2 mean: 120.4 cm/sec MV mean P.1 mmHg Ao mean P.9 mmHg MV V2 VTI: 37.3 cm Ao V2 VTI: 45.1 cm AV (velocity ratio): 0.76 LV V1 max: 133.2 cm/sec PA V2 max: 111.4 cm/sec LV V1 max P.1 mmHg PA V2 mean: 66.9 cm/sec LV V1 mean P.1 mmHg LV V1 mean: 95.6 cm/sec LV V1 VTI: 34.2 cm ECHO/Echo Complete W/ Contrast Interpretation Summary The estimated ejection fraction is 55 %. No evidence for diastolic dysfunction. Ordering Physician: Ling Neville Referring Physician: Delmy Landon Performed By: Maki Rivera RCS
[2024-11-12 12:27] LABS: Vancomycin, Trough Level 20.7 ug/mL (5.0-15.0)
--- NOTE | 2024-11-12 12:52 | PN_ITS ---
Subjective Subjective Patient seen and examined. She had no complaints. She had an uneventful night. Review of systems otherwise negative. She was on 2 L of oxygen. She says she usually wears 6 L of oxygen at home. She has remained hemodynamically stable otherwise. Objective Data Objective Data Vital Signs: Vital Signs Temp Pulse Resp BP Pulse Ox O2 Del Method O2 Flow Rate 98.6 F 83 16 139/51 H 94 Nasal Cannula 2 11/12/24 08:15 11/12/24 08:15 11/12/24 08:15 11/12/24 08:15 11/12/24 08:15 11/12/24 08:15 11/12/24 10:17 FiO2 40 11/12/24 05:02 Oxygen Flow Rate (L/min) 2 Oxygen Delivery Method Nasal Cannula Weight: 387 lb 2.107 oz Body Mass Index (BMI) 64.4 Intake & Output: Intake and Output for Last 24 Hours 11/10/24 11/11/24 11/12/24 23:59 23:59 23:59 Intake Total 1452 / 2052 3380 / 3380 1564.5 / 1564.5 Output Total 2400 / 2750 825 / 825 Balance -948 / -698 2555 / 2555 1564.5 / 1564.5 Lab / Micro Data 11/12/24 06:23 11/12/24 06:23 Labs: Laboratory Results - last 24 hr 11/11/24 16:20: POC Glucose 156 H 11/11/24 22:09: POC Glucose 127 H 11/12/24 06:23: WBC 9.2, RBC 3.13 L, Hgb 8.7 L, Hct 28.8 L, MCV 92.0, MCH 27.8, MCHC 30.2 L, RDW Std Deviation 45.2 H, RDW Coeff of Darrion 13.3, Plt Count 261, MPV 10.3, Immature Gran % (Auto) 0.900, Neut % (Auto) 70.4 H, Lymph % (Auto) 18.9 L, [place] % (Auto) 4.9, Eos % (Auto) 4.3, Baso % (Auto) 0.6, Absolute Neuts (auto) 6.5, Absolute Lymphs (auto) 1.75, Nucleated RBC % 0.2, Sodium 136, Potassium 4.2, Chloride 97 L, Carbon Dioxide 36.0 H, Anion Gap 3 L, BUN 30 H, Creatinine 0.91, Estim Creat Clear Calc 126.01, Est GFR (MDRD) Af Amer 85, Est GFR (MDRD) Non-Af 70, BUN/Creatinine Ratio 33.0 H, Glucose 191 H, Calcium 8.6, Phosphorus 2.3 L, Magnesium 2.1 11/12/24 07:49: POC Glucose 206 H 11/12/24 11:18: POC Glucose 328 H 11/12/24 11:30: Vancomycin Trough 20.7 H Micro: Microbiology 11/10/24 01:08 Wound - Leg, Right Gram Stain - Final 11/10/24 01:08 Wound - Leg, Right Wound Culture - Final Meth. resistant Staph. aureus 11/10/24 03:10 Urine Catheter - Catheter Legionella Antigen - Final 11/10/24 03:10 Urine Catheter - Catheter Streptococcus pneumoniae Antigen (M - Final 11/09/24 20:55 Blood Culture (Wb) - Anticubital Right Blood Culture - Preliminary No growth in 48 hours. 11/09/24 20:00 Blood Culture (Wb) - Right Forearm Blood Culture - Preliminary No growth in 48 hours. 11/10/24 11:39 Mucosa - Nasopharyngeal SARS-CoV-2, Influenza & RSV (PCR) - Final 11/10/24 01:08 Wound - Leg, Right Skin and Soft Tissue MRSA/MSSA (PCR - Final Meth. resistant Staph. aureus Staphylococcus aureus 11/10/24 01:58 Mucosa - Nasopharyngeal Respiratory Panel (PCR) - Final Physical Exam Const alert, oriented x3 and no apparent distress Constitutional Narrative: super morbid obesity General Appearance: cooperative HEENT normocephalic, head/scalp atraumatic and moist oral mucous membranes Eyes PERRL and EOMs intact bilaterally Neck no lymphadenopathy and supple Lymph Lymphatic: no lymphadenopathy noted and no lymphedema noted Resp Resp Narrative: mildly diminished breath sounds bilaterally, no wheezes or crackles. On 2L of oxygen by nasal canula Cardio regular rate, regular rhythm, S1 normal heart sound, S2 normal heart sound and no murmurs GI normal to inspection, nondistended, normoactive bowel sounds and soft to palpation Extremity normal capillary refill, no clubbing, cyanosis or edema and no calf tenderness General Extremity: no tenderness to palpation of joints or extremities Skin General Skin Exam: no breakdown Neuro CN's II-XII intact bilaterally, no focal motor deficits and no sensory deficits noted Motor Exam: strength 5/5 throughout and general weakness Psych thought process normal and cooperative Appearance: appropriate Assessment & Plan Assessment/Plan (1) Acute on chronic respiratory failure with hypoxia and hypercapnia: (2) MRSA cellulitis of left foot: PLAN: Plan #MRSA cellulitis of the left foot * wound cultures positive for Staph aureus * on IV vancomycin and ceftriaxone * wound are on board * ID reviewed patient and recommended 2D echo. * #Hypoxia in the setting of chronic hypoxic respiratory failure * She says she usually wears 6 L of oxygen both documented that she usually wears 4 L of oxygen. She was on 2 L of oxygen this morning. * on IV antibiotics * breathing treatments with bronchodilators. * titrate oxygen to maintain sats >90% * 2D echo ordered * #Hyponatremia: improving. On lasix. #COPD: * not in exacerbation. Breathing treatment with bronchodilators. Titrate oxygen to maintain sats >90%. * #Benign essential hypertension * on lisinopril and metoprolol * #Type 2 diabetes mellitus * Poorly controlled. A1c is 10.4. On Lantus 10 units twice daily. Insulin sliding scale. Accu-Cheks ACHS. * * #Hyperlipidemia: on statin and fenofibrate #GERD: on PPI #LOGAN; on BIPAP qhs #Histoyr of DVT: on eliquis #Anxiety and depression: Stable clinically DVT prophylaxis: On Eliquis Charges/Coding Visit Charges Inpatient E&M: 42050 Subs Hosp L2
--- NOTE | 2024-11-12 13:03 | PCM.RX.CS ---
Consult Antibiotic Management Pharmacy has been consulted to manage selected antibiotic: Vancomycin Type of Intervention Type of Consult: Follow-up Suspected Infection Suspected Infection: Skin/Soft tissue Labs Labs: Sodium 136 mmol/L (136-145) 11/12/24 06:23 Potassium 4.2 mmol/L (3.5-5.1) 11/12/24 06:23 Chloride 97 mmol/L (98-107) L 11/12/24 06:23 Carbon Dioxide 36.0 mmol/L (21.0-32.0) H 11/12/24 06:23 Anion Gap 3 (5-15) L 11/12/24 06:23 BUN 30 mg/dL (7-18) H 11/12/24 06:23 Creatinine 0.91 mg/dL (0.55-1.02) 11/12/24 06:23 Est GFR (MDRD) Af Amer 85 mL/min (>60) 11/12/24 06:23 Est GFR (MDRD) Non-Af 70 mL/min (>60) 11/12/24 06:23 BUN/Creatinine Ratio 33.0 RATIO (10-20) H 11/12/24 06:23 Glucose 191 mg/dL (74-106) H 11/12/24 06:23 Vancomycin Trough 20.7 ug/mL (5.0-15.0) H 11/12/24 11:30 Microbiology Microbiology: Microbiology 11/10/24 01:08 Wound - Leg, Right Gram Stain - Final 11/10/24 01:08 Wound - Leg, Right Wound Culture - Final Meth. resistant Staph. aureus 11/10/24 03:10 Urine Catheter - Catheter Legionella Antigen - Final 11/10/24 03:10 Urine Catheter - Catheter Streptococcus pneumoniae Antigen (M - Final 11/09/24 20:55 Blood Culture (Wb) - Anticubital Right Blood Culture - Preliminary No growth in 48 hours. 11/09/24 20:00 Blood Culture (Wb) - Right Forearm Blood Culture - Preliminary No growth in 48 hours. 11/10/24 11:39 Mucosa - Nasopharyngeal SARS-CoV-2, Influenza & RSV (PCR) - Final 11/10/24 01:08 Wound - Leg, Right Skin and Soft Tissue MRSA/MSSA (PCR - Final Meth. resistant Staph. aureus Staphylococcus aureus 11/10/24 01:58 Mucosa - Nasopharyngeal Respiratory Panel (PCR) - Final Pharmacy Plan for Drug Dosing Pharmacy Plan for Drug Dosing: VANCOMYCIN LEVEL RECEIVED Current Vancomycin Dose: 2000MG Q12 Number of Doses Received: 3 Vancomycin Level: 20.7 MG/DL Hours Since Last Dose: 11.5 Renal Function: Scr 0.91 mg/dL, CrCl 126 mL/min Renal Function Trend: improved from SCr 1.41 mg/dl 11/11 Lab/Micro: MRSA in wound cx Vancomycin Plan/Comments: 11.5 hour trough is slightly elevated at 20.7mg/dL (goal 15-20). Will decrease dose to 1750mg Q12 and get a trough prior to 4th dose of new regimen. Pending Level: 11/14/24 @ 0030 Pharmacy Service will continue to monitor and adjust dosing as required.
[2024-11-12] MEDS: Vancomycin HCl 1,750 MG in 0.9% Normal Saline (500mL Bag) 500 ML 250 MG IV (13:55)
--- NOTE | 2024-11-12 14:17 | PCM.PN.ID ---
Physical Exam Narrative Feeling better, breathing improved, legs less sore/red. No fever. Const alert and no apparent distress General Appearance: cooperative Resp normal air movement and clear to auscultation bilaterally Auscultation: diminished lung sounds Cardio regular rate and regular rhythm GI soft to palpation, non-tender and non-distended Extremity General Extremity: edema Skin Skin Narrative: BLE less red ID ID: Route of nutrition/ use of supplements: [] Nutritional Intake: [] IV Site: [] Choe Catheter: [] Assessment & Plan Assessment/Plan (1) Acute on chronic hypoxic respiratory failure: (2) Cellulitis of leg: QUALIFIERS: Laterality: left Qualified Code(s): L03.116 - Cellulitis of left lower limb PLAN: L toe wound, BLE edema and cellulitis. Possible pneumonia/bronchitis, but exam and cxr clear. UAgs neg. BNP normal, but with h/o chronic edema and CHF, would recommend TTE and vascular workup. Consider podiatry eval. On vanc/ceftriaxone. Ok for discharge home on 5 days po doxy 100mg bid and keflex 500mg tid. Will follow brian, alaina field case manager
--- NOTE | 2024-11-12 16:14 | DS.PCM_ITS ---
Providers Date of Admission: 11/09/24 Date of Discharge: 11/12/24 Primary Care Physician: Delmy Landon MD Consultations 11/10/24 07:25 Consult: Onc/Wound/bin filler Routine Comment: Reason for Consult:: Cellulitis 11/11/24 08:23 Consult: Infectious Disease Routine Consulting Provider: Alec Gonzalez Reason for Consult: MRSA skin infection EMERGENT Consult: No MD Notified: Yes Date Notified: 11/11/24 Time Notified: 08:23 Method of Notification: Text Reason For Visit: BRONCHITIS, ? BL LE CELLULITIS Diagnosis Discharge Diagnosis (1) Acute on chronic hypoxic respiratory failure: Status: Chronic Code(s): J96.21 - Acute and chronic respiratory failure with hypoxia (2) Cellulitis of leg: Status: Acute Code(s): L03.119 - Cellulitis of unspecified part of limb Qualifiers: Laterality: left Qualified Code(s): L03.116 - Cellulitis of left lower limb Plan #MRSA cellulitis of the left foot * wound cultures positive for Staph aureus * on IV vancomycin and ceftriaxone * wound are on board * ID reviewed patient and recommended 2D echo. * #Hypoxia in the setting of chronic hypoxic respiratory failure * She says she usually wears 6 L of oxygen both documented that she usually wears 4 L of oxygen. She was on 2 L of oxygen this morning. * on IV antibiotics * breathing treatments with bronchodilators. * titrate oxygen to maintain sats >90% * 2D echo ordered * #Hyponatremia: improving. On lasix. #COPD: * not in exacerbation. Breathing treatment with bronchodilators. Titrate oxygen to maintain sats >90%. * #Benign essential hypertension * on lisinopril and metoprolol * #Type 2 diabetes mellitus * Poorly controlled. A1c is 10.4. On Lantus 10 units twice daily. Insulin sliding scale. Accu-Cheks ACHS. * * #Hyperlipidemia: on statin and fenofibrate #GERD: on PPI #LOGAN; on BIPAP qhs #Histoyr of DVT: on eliquis #Anxiety and depression: Stable clinically DVT prophylaxis: On Eliquis Medications at Discharge Home Medications multivit-iron 18 mg-folic acid 400 mcg-calcium 500 mg-minerals tablet 1 ea PO DAILY supplement 03/26/17 omeprazole 40 mg capsule,delayed release 40 mg PO DAILY GERD 12/15/18 loratadine 10 mg tablet 10 mg PO DAILY PRN Allergies 03/01/20 apixaban 5 mg tablet 5 mg PO BID blood thinner 08/20/20 diltiazem HCl 120 mg capsule,extended release 24 hr 120 mg PO DAILY heart rate 08/20/20 lisinopril 10 mg tablet 10 mg PO DAILY blood pressure 03/26/21 metformin 500 mg tablet,extended release 24 hr 1,000 mg PO DAILY diabetes 03/26/21 metoprolol succinate 25 mg tablet,extended release 24 hr 25 mg PO DAILY blood pressure 03/26/21 atorvastatin 80 mg tablet 80 mg PO QHS cholesterol 02/07/22 furosemide 40 mg tablet 80 mg PO DAILY diuretic 09/22/22 insulin lispro 100 unit/mL subcutaneous pen (Humalog KwikPen (U-100) Insulin) 50 unit (0.5 mL) subcut TIDAC #0 mL 09/24/22 albuterol sulfate 2.5 mg/3 mL (0.083 %) solution for nebulization 2.5 mg inhalation Q4H PRN SOB 12/09/22 fenofibrate nanocrystallized 145 mg tablet 145 mg PO DAILY CHOLESTEROL 12/09/22 insulin glargine U-300 conc 300 unit/mL (3 mL) subcutaneous pen (Toujeo Max U- 300 SoloStar) 104 unit subcut BID diabetes 07/14/23 semaglutide 1 mg/dose (4 mg/3 mL) subcutaneous pen injector (Ozempic) 1 mg subcut .1XW diabetes 07/14/23 metolazone 2.5 mg tablet 2.5 mg PO .every /th #8 tabs 07/15/23 oxycodone-acetaminophen 5 mg-325 mg tablet (Percocet) 1 tab PO Q6H PRN pain 3 days #12 tabs 01/15/24 potassium chloride 20 mEq tablet,extended release(part/cryst) See Rx Instructions .Route .COMPLEX #60 TABLETS 08/05/24 duloxetine 60 mg capsule,delayed release 60 mg PO DAILY 11/09/24 ergocalciferol (vitamin D2) 1,250 mcg (50,000 unit) capsule (Vitamin D2) 1,250 mcg PO QWEEK 11/09/24 ferrous sulfate 325 mg (65 mg iron) tablet (FeroSul) 325 mg PO DAILY 11/09/24 lorazepam 1 mg tablet 1 mg PO TID 11/09/24 cephalexin 500 mg capsule 500 mg PO TID #14 caps 11/12/24 doxycycline monohydrate 100 mg capsule 100 mg PO BID 5 days #10 caps 11/12/24 Hospital Course Operations None Procedures 2-D Echocardiogram Summary of Care Provided Minutes Spent on Discharge: 55 Hospital Course: Patient is a 49-year-old female with past medical history as outlined was admitted through the ED on 11/09/2024 with complaint of shortness of breath which had been worsening for several days prior to admission. She usually wears oxygen at home and says usually will 4 to 6 L. She had a cough and was bringing up yellow and brown sputum. She denied any chest pain or sore throat or any other respiratory symptoms. She said her blood sugars have been increasing at home and she had been having polyuria and polydipsia. She also admitted some redness and swelling in her lower extremities and had been having some drainage from her lower extremities. On admission, she was 84% on room air but required 4 L of oxygen. CBC showed WBC of 20.2. Chemistry showed sodium of 129 and glucose of 429 with lactic acid of 2.3. Initial troponin was negative. Chest x-ray showed slightly central pulmonary vascular prominence but no acute consolidation. She was admitted and managed for suspected bronchitis in the setting of chronic respiratory failure as well as probable bilateral lower extremity cellulitis. She was started on IV vancomycin and Zosyn in light of her history of MRSA. Infectious disease was consulted. Her COVID, flu and RSV test were negative and respiratory viral panel was also negative. Patient's symptoms improved and his shortness of breath resolved. She was weaned down to her baseline and was on 2 L of oxygen on day of discharge. ID was consulted and reviewed patient and recommended a 2D echo. 2D echo was done but read was pending at time patient was discharged. Patient felt much better and the redness and swelling in her lower extremities resolved. Her shortness of breath also resolved. She was therefore discharged him on 11/12/2024. She was discharged on p.o doxycycline and Keflex for 5-day course. She was discharged home on 11/12/2024 with home health. She is follow-up with her primary care doctor and was also referred to podiatry for evaluation. Patient seen and examined prior to discharge. She had no active complaints. Review of systems otherwise negative. Labs and vitals reviewed. Home medication reviewed and reconciled. Physical Exam Const alert, oriented x3 and no apparent distress Constitutional Narrative: super morbid obesity General Appearance: cooperative and comfortable Orientation / Consciousness: awake Exam Limitations: no limitations HEENT normocephalic, head/scalp atraumatic, hearing grossly normal bilaterally and moist oral mucous membranes Mouth: oral and palatal mucosa normal Eyes PERRL and EOMs intact bilaterally Neck no lymphadenopathy and supple Lymph Lymphatic: no lymphadenopathy noted and no lymphedema noted Resp Resp Narrative: mildly diminished breath sounds bilaterally, no wheezes or crackles. On 2L of oxygen by nasal canula Cardio regular rate, regular rhythm, S1 normal heart sound, S2 normal heart sound, no murmurs, no rub, no gallops and no clicks GI normal to inspection, nondistended, normoactive bowel sounds, soft to palpation and non-tender GI Narrative: obese abdomen Extremity Extremity Narrative: Bilateral lower extremity edema, Lorenzo bandages in place, General Extremity: no tenderness to palpation of joints or extremities Skin General Skin Exam: no breakdown Neuro oriented x3, CN's II-XII intact bilaterally, moves all extremities, no focal motor deficits and no sensory deficits noted Speech: speech normal Motor Exam: strength 5/5 throughout and general weakness Psych thought process normal, cooperative and affect normal Appearance: appropriate Weight / BMI Weight Weight: 387 lb 2.107 oz Body Mass Index (BMI) 64.4 ABG / Lab / Microbiology Data 11/12/24 06:23 11/12/24 06:23 Laboratory: Laboratory Results - last 24 hr 11/11/24 16:20: POC Glucose 156 H 11/11/24 22:09: POC Glucose 127 H 11/12/24 06:23: WBC 9.2, RBC 3.13 L, Hgb 8.7 L, Hct 28.8 L, MCV 92.0, MCH 27.8, MCHC 30.2 L, RDW Std Deviation 45.2 H, RDW Coeff of Darrion 13.3, Plt Count 261, MPV 10.3, Immature Gran % (Auto) 0.900, Neut % (Auto) 70.4 H, Lymph % (Auto) 18.9 L, Mathews % (Auto) 4.9, Eos % (Auto) 4.3, Baso % (Auto) 0.6, Absolute Neuts (auto) 6.5, Absolute Lymphs (auto) 1.75, Nucleated RBC % 0.2, Sodium 136, Potassium 4.2, Chloride 97 L, Carbon Dioxide 36.0 H, Anion Gap 3 L, BUN 30 H, Creatinine 0.91, Estim Creat Clear Calc 126.01, Est GFR (MDRD) Af Amer 85, Est GFR (MDRD) Non-Af 70, BUN/Creatinine Ratio 33.0 H, Glucose 191 H, Calcium 8.6, Phosphorus 2.3 L, Magnesium 2.1 11/12/24 07:49: POC Glucose 206 H 11/12/24 11:18: POC Glucose 328 H 11/12/24 11:30: Vancomycin Trough 20.7 H Microbiology: Microbiology 11/10/24 01:08 Wound - Leg, Right Gram Stain - Final 11/10/24 01:08 Wound - Leg, Right Wound Culture - Final Meth. resistant Staph. aureus 11/10/24 03:10 Urine Catheter - Catheter Legionella Antigen - Final 11/10/24 03:10 Urine Catheter - Catheter Streptococcus pneumoniae Antigen (M - Final 11/09/24 20:55 Blood Culture (Wb) - Anticubital Right Blood Culture - Preliminary No growth in 48 hours. 11/09/24 20:00 Blood Culture (Wb) - Right Forearm Blood Culture - Preliminary No growth in 48 hours. 11/10/24 11:39 Mucosa - Nasopharyngeal SARS-CoV-2, Influenza & RSV (PCR) - Final 11/10/24 01:08 Wound - Leg, Right Skin and Soft Tissue MRSA/MSSA (PCR - Final Meth. resistant Staph. aureus Staphylococcus aureus 11/10/24 01:58 Mucosa - Nasopharyngeal Respiratory Panel (PCR) - Final D/C Instructions Discharge Diet: Low fat / Low cholesterol and 1800 Calorie Control Diet Discharge Activity: Return to Normal Activity Weight Bearing Status: Weight bearing as tolerated Call your doctor if you observe: Fever of 101 or Higher, Shortness of breath, Dizziness, Swelling in the ankles and Chest pain DC O2, CPAP, BIPAP Needs PSN CPAP & BiPAP: BiPAP & CPAP Settings per PSN Mode AVAPS 11/12/24 05:02 Bipap Delivery Device Face Mask 11/12/24 05:02 BiPAP Inspiratory Pressure 16 11/12/24 02:23 BiPAP Expiratory Pressure 8 11/12/24 05:02 BiPAP Rate 12 11/12/24 05:02 Fraction of Inspired Oxygen ( 40 11/12/24 05:02 FIO2) Additional Home O2 Discharge instructions: No DC home with Oxygen: Yes Home O2 MD Review: I have reviewed the oxygen testing, and the patient qualifies for home oxygen equipment and portability. The patient is mobile in the home and the community. Meaningful Use Info Meaningful Use Meaningful Use Diagnoses (Choose all that apply): None applicable Ischemic Stroke Statin Dosing Therapy Reference: STATIN DOSE THERAPY REFERENCE: * Patients > 75 years receive moderate or high dose statin therapy. * Patients 75 years or YOUNGER should receive HIGH intensity statin dose unless contraindicated. You will be required to document reason for non-treatment if statin daily dose does not meet guidelines. HIGH DOSE STATIN THERAPY DAILY Atorvastatin > than or = to 40 mg Rosuvastatin > than or = to 20 mg Amlodipine + Atorvastatin > than or = to 2.5/40 mg Ezetimibe + Simvastatin 10/80 mg Simvastatin 80mg Discharge Plan Admission Admit Date/Time: 11/09/24 23:05 Primary Reason for Your Visit: acute bronchitis Attending Provider: Ling Neville Primary Care Provider: Delmy Landon Consulting Providers: Olamide Mas; Alec Gonzalez; Belem Aponte Instructions Patient Instructions: Acute Bronchitis Discharge Orders/Prescriptions Prescriptions: New doxycycline monohydrate 100 mg Capsule 100 mg PO BID 5 Days Qty: 10 0RF cephalexin 500 mg capsule 500 mg PO TID Qty: 14 0RF Continued loratadine 10 mg tablet 10 mg PO DAILY PRN (Reason: Allergies) lisinopril 10 mg tablet 10 mg PO DAILY Patient Comments: TAKE 1 TABLET BY MOUTH EVERY DAY metformin 500 mg tablet extended release 24 hr 1,000 mg PO DAILY metoprolol succinate 25 mg tablet extended release 24 hr 25 mg PO DAILY Patient Comments: TAKE 1 TABLET BY MOUTH EVERY DAY atorvastatin 80 mg tablet 80 mg PO QHS htydtxct-ujbd-YN-calcium-mins 1 EACH tablet 1 ea PO DAILY Patient Comments: vitamin omeprazole 40 MG capsule,delayed release(DR/EC) 40 mg PO DAILY diltiazem HCl 120 MG capsule 120 mg PO DAILY apixaban 5 MG tablet 5 mg PO BID furosemide 40 mg tablet 80 mg PO DAILY insulin lispro [Humalog KwikPen Insulin] 100 unit/mL Insulin Pen 50 unit subcut TIDAC Qty: 0 0RF albuterol sulfate 2.5 mg /3 mL (0.083 %) solution for nebulization 2.5 mg inhalation Q4H PRN (Reason: SOB) fenofibrate nanocrystallized 145 mg tablet 145 mg PO DAILY oxycodone-acetaminophen [Percocet] 5-325 mg tablet 1 tab PO Q6H PRN (Reason: pain) 3 Days Qty: 12 0RF insulin glargine U-300 conc [Toujeo Max U-300 SoloStar] 300 unit/mL (3 mL) insulin pen 104 unit SUBCUT BID Patient Comments: PT STATES SHE TAKES THIS BUT DOES NOT KNOW HOW OFTEN OR HOW MANY UNITS Ozempic 1 mg/dose (4 mg/3 mL) pen injector 1 mg SUBCUT .1XW metolazone 2.5 mg tablet 2.5 mg PO .every / Qty: 8 1RF ferrous sulfate [FeroSul] 325 mg (65 mg iron) tablet 325 mg PO DAILY ergocalciferol (vitamin D2) [Vitamin D2] 1,250 mcg (50,000 unit) capsule 1,250 mcg PO QWEEK lorazepam 1 mg tablet 1 mg PO TID duloxetine 60 mg capsule,delayed release(DR/EC) 60 mg PO DAILY potassium chloride 20 mEq tablet,ER particles/crystals See Rx Instructions .ROUTE .COMPLEX Qty: 60 11RF Dose Instruction: TAKE 1 TABLET BY MOUTH TWICE A DAY Rx Instructions: TAKE 1 TABLET BY MOUTH TWICE A DAY Referrals / Follow Up: Delmy Landon MD [Primary Care Provider] - Within 1 Week Vinicio Shah DPM [Med Staff - Active Staff] - Within 2 Weeks Disposition Disposition (needs filled in before D/C Order can be placed): Home Health Service Charges/Coding Visit Charges Inpatient E&M: 35037 Disch Hosp >30min
--- NOTE | 2024-11-12 16:20 | DCINST_ITS ---
Discharge Instructions Diet Discharge Diet: Low fat / Low cholesterol and 1800 Calorie Control Diet DC O2, CPAP, BIPAP needs PSN CPAP & BiPAP: BiPAP & CPAP Settings per PSN Mode AVAPS 11/12/24 05:02 Bipap Delivery Device Face Mask 11/12/24 05:02 BiPAP Inspiratory Pressure 16 11/12/24 02:23 BiPAP Expiratory Pressure 8 11/12/24 05:02 BiPAP Rate 12 11/12/24 05:02 Fraction of Inspired Oxygen ( 40 11/12/24 05:02 FIO2) Additional Home O2 Discharge instructions: No Dressing / Incision Weight Bearing Status: Weight bearing as tolerated Dressing / Incision Call your doctor if you observe: Fever of 101 or Higher, Shortness of breath, Dizziness, Swelling in the ankles and Chest pain Follow Up Care Test Results: Test results from this visit will be discussed in further detail at your follow- up appointment, if applicable. Discharge Plan Admission Admit Date/Time: 11/09/24 23:05 Primary Reason for Your Visit: acute bronchitis Attending Provider: Ling Neville Primary Care Provider: Delmy Landon Consulting Providers: Olamide Mas; Alec Gonzalez; Belem Aponte Instructions Patient Instructions: Acute Bronchitis Ch Discharge Orders/Prescriptions Prescriptions: New doxycycline monohydrate 100 mg Capsule 100 mg PO BID 5 Days Qty: 10 0RF cephalexin 500 mg capsule 500 mg PO TID Qty: 14 0RF Continued loratadine 10 mg tablet 10 mg PO DAILY PRN (Reason: Allergies) lisinopril 10 mg tablet 10 mg PO DAILY Patient Comments: TAKE 1 TABLET BY MOUTH EVERY DAY metformin 500 mg tablet extended release 24 hr 1,000 mg PO DAILY metoprolol succinate 25 mg tablet extended release 24 hr 25 mg PO DAILY Patient Comments: TAKE 1 TABLET BY MOUTH EVERY DAY atorvastatin 80 mg tablet 80 mg PO QHS lsmasesy-pfmm-BN-calcium-mins 1 EACH tablet 1 ea PO DAILY Patient Comments: vitamin omeprazole 40 MG capsule,delayed release(DR/EC) 40 mg PO DAILY diltiazem HCl 120 MG capsule 120 mg PO DAILY apixaban 5 MG tablet 5 mg PO BID furosemide 40 mg tablet 80 mg PO DAILY insulin lispro [Humalog KwikPen Insulin] 100 unit/mL Insulin Pen 50 unit subcut TIDAC Qty: 0 0RF albuterol sulfate 2.5 mg /3 mL (0.083 %) solution for nebulization 2.5 mg inhalation Q4H PRN (Reason: SOB) fenofibrate nanocrystallized 145 mg tablet 145 mg PO DAILY oxycodone-acetaminophen [Percocet] 5-325 mg tablet 1 tab PO Q6H PRN (Reason: pain) 3 Days Qty: 12 0RF insulin glargine U-300 conc [Toujeo Max U-300 SoloStar] 300 unit/mL (3 mL) insulin pen 104 unit SUBCUT BID Patient Comments: PT STATES SHE TAKES THIS BUT DOES NOT KNOW HOW OFTEN OR HOW MANY UNITS Ozempic 1 mg/dose (4 mg/3 mL) pen injector 1 mg SUBCUT .1XW metolazone 2.5 mg tablet 2.5 mg PO .every / Qty: 8 1RF ferrous sulfate [FeroSul] 325 mg (65 mg iron) tablet 325 mg PO DAILY ergocalciferol (vitamin D2) [Vitamin D2] 1,250 mcg (50,000 unit) capsule 1,250 mcg PO QWEEK lorazepam 1 mg tablet 1 mg PO TID duloxetine 60 mg capsule,delayed release(DR/EC) 60 mg PO DAILY potassium chloride 20 mEq tablet,ER particles/crystals See Rx Instructions .ROUTE .COMPLEX Qty: 60 11RF Dose Instruction: TAKE 1 TABLET BY MOUTH TWICE A DAY Rx Instructions: TAKE 1 TABLET BY MOUTH TWICE A DAY Referrals / Follow Up: Delmy Landon MD [Primary Care Provider] - Within 1 Week Vinicio Shah DPM [Med Staff - Active Staff] - Within 2 Weeks Disposition Disposition (needs filled in before D/C Order can be placed): Home Health Service
[2024-11-12 17:20] LABS: Bedside Glucose 233 mg/dL (74-106)
--- NOTE | 2024-11-13 08:57 | CASEMGMT ---
Social Work Discharge orders faxed to [facility]. PER Friedman
== END 2024-11-12 19:10 | disposition home health service (06) | DRG 602 ==
LOC: ED 23:31 → ICU 23:56 → MS3 11-11 17:39
PROVIDERS: Internal Medicine; Admitting Provider Family Medicine; Emergency Provider Emergency Medicine; PCP Family Medicine; Visit Provider Student in an Organized Health Care Education/Training Program
DX: L03.115 Cellulitis of right lower limb (principal); I50.33 Acute on chronic diastolic (congestive) heart failure; J44.0 Chronic obstructive pulmonary disease with (acute) lower respiratory infection; E66.2 Morbid (severe) obesity with alveolar hypoventilation; E87.1 Hypo-osmolality and hyponatremia; I13.0 Hypertensive heart and chronic kidney disease with heart failure and stage 1 through stage 4 chronic kidney disease, or unspecified chronic kidney disease; J96.11 Chronic respiratory failure with hypoxia; Z68.44 Body mass index [BMI] 60.0-69.9, adult; D63.1 Anemia in chronic kidney disease; E11.22 Type 2 diabetes mellitus with diabetic chronic kidney disease; F32.A Depression, unspecified; D50.9 Iron deficiency anemia, unspecified; E11.65 Type 2 diabetes mellitus with hyperglycemia; Z79.4 Long term (current) use of insulin; F17.210 Nicotine dependence, cigarettes, uncomplicated; N18.2 Chronic kidney disease, stage 2 (mild); E87.8 Other disorders of electrolyte and fluid balance, not elsewhere classified; E78.5 Hyperlipidemia, unspecified; K21.9 Gastro-esophageal reflux disease without esophagitis; F41.9 Anxiety disorder, unspecified; F17.290 Nicotine dependence, other tobacco product, uncomplicated; J20.9 Acute bronchitis, unspecified; I87.8 Other specified disorders of veins; I25.2 Old myocardial infarction; L03.116 Cellulitis of left lower limb; Z79.01 Long term (current) use of anticoagulants; B95.62 Methicillin resistant Staphylococcus aureus infection as the cause of diseases classified elsewhere; Z91.198 Patient's noncompliance with other medical treatment and regimen for other reason; Z99.81 Dependence on supplemental oxygen; Z79.84 Long term (current) use of oral hypoglycemic drugs; Z79.85 Long-term (current) use of injectable non-insulin antidiabetic drugs; Z79.899 Other long term (current) drug therapy; Z86.718 Personal history of other venous thrombosis and embolism; Z23 Encounter for immunization
CPT/HCPCS: 36415; 36600; 71045; 80048; 80053; 80202; 81001; 82009; 82803; 82962; 83036; 83605; 83735; 83880; 84100; 84145; 84484; 85025; 85610; 85730; 87040; 87070; 87077; 87149; 87186; 87205; 87449; 87631; 87633; 87640; 90656; 93306; 94002; 94003; 94640; 94668; 94760; 97110; 97116; 97161; 97166; 97802; 99285; 99406; J7030; J7040; Q9957; A4216; C8929; J0295; J0696; J1940; J2405

== ENCOUNTER 2025-08-16 18:18 | Inpatient (IN) | payer MEDICARE, MEDICAID, SELFPAY ==
[2025-08-16 18:21] VITALS: BP 156/71; PULSE 99; RESP 20; TEMP 36.7; O2SAT 96
[2025-08-16 18:39] VITALS: BMI 67.3
--- NOTE | 2025-08-16 18:41 | EKG12_ITS ---
Test Reason : DYSRHYTHMIA Blood Pressure : */* mmHG Vent. Rate : 93 BPM Atrial Rate : 93 BPM P-R Int : 140 ms QRS Dur : 86 ms QT Int : 368 ms P-R-T Axes : 14 -2 65 degrees QTcB Int : 457 ms Normal sinus rhythm Normal ECG Confirmed by HASMUKH LORA, LILIANA ([id number]), development editor RANDI BROWNLEE ([id number]) on 08/17/2025 9:41:15 AM Referred By: Confirmed By: LILIANA NOE MD
--- NOTE | 2025-08-16 19:05 | RAD_ITS ---
PROCEDURE: CHEST PA AND LATERAL 08/16/2025 REASON FOR EXAM: REED, ORTHOPNEA, WHEEZING TECHNIQUE: Procedure Code: RADCXR Modality: DX Procedure: CHEST PA AND LATERAL COMPARISON: 11/09/2024 FINDINGS: Cardiomegaly with vascular congestion. No airspace consolidation or pleural effusion. No pneumothorax. Mild multilevel degenerative changes of the spine. Unremarkable soft tissues. RAD/Chest PA and Lateral IMPRESSION: Cardiomegaly with vascular congestion. No airspace consolidation or pleural effusions. Reading Location: [facility]
[2025-08-16 19:24] VITALS: BP 122/59; PULSE 90; RESP 17; TEMP 37; O2SAT 96
[2025-08-16 19:41] LABS: Hematocrit 29.6 % (37-47); Hemoglobin 9.2 g/dL (12.0-15.0); Immature Granulocytes Count 0.060 X10^3/uL (0.0-0.0); Mean Corp Hgb Conc 31.1 g/dL (32-36); Mean Corpuscular Volume 90.8 fL (81-99); Mean Platelet Vol. 10.5 fl (6.2-12.0); NRBC Flagged by Analyzer 0 % (0-5); Platelet Count 254 K/mm3 (150-450); RBC Distribution Width CV 13.7 % (11.6-14.6); RBC Distribution Width SD 45.8 fl (35.1-43.9); Red Blood Count 3.26 M/mm3 (4.2-5.4); White Blood Count 9.4 K/mm3 (4.4-11.0)
[2025-08-16 19:49] LABS: Prothrombin Time (Protime)PT. 14.3 SECONDS (11.7-14.9)
[2025-08-16 19:50] LABS: Partial Thromboplast Time 29.8 Seconds (24.1-36.2)
[2025-08-16] MEDS: Ampicillin/Sulbactam 3 GM in 0.9% Normal Saline (100mL MB+) 100 ML IV ×2 (19:51→23:31)
[2025-08-16 20:00] VITALS: BP 144/69; PULSE 91; RESP 14; TEMP 37.2; O2SAT 99
[2025-08-16 20:14] LABS: Troponin T High Sensitivity 37 ng/L (<=14)
[2025-08-16 20:18] LABS: Pro- Brain NATRIURETIC PEPTIDE 163 pg/mL (<=450)
[2025-08-16 20:27] LABS: AST(SGOT) 24 U/L (<=31); Alanine Aminotransfer ALT/SGPT 23 U/L (<=34); Albumin, Serum 3.5 g/dL (3.5-5.0); Alkaline Phosphatase 81 U/L (35-104); Anion Gap 14 (5-15); BUN 32 mg/dL (4-19); BUN/Creat Ratio 29.7 RATIO (10-20); Calcium,Total 8.2 mg/dL (7.6-11.0); Carbon Dioxide 30.0 mmol/L (21.0-32.0); Chloride 90 mmol/L (98-108); Estimated Creatinine Clearance 110.03 ml/min (50-250); Globulin 3.2 g/dL (2.2-4.2); Glucose 525 mg/dL (70-99); Potassium 3.8 mmol/L (3.3-5.1)
--- NOTE | 2025-08-16 20:42 | EX.ED.DYSGE1 ---
HPI History of Present Illness Chief Complaint: Edema Detail of Chief Complaint: Edema, dyspnea on exertion, chills and subjective fever and drainage RLE Informant: patient Onset/Context/Timing Onset: Days Context: Gradual Onset Timing: Continuous Quality: Swelling of both lower extremities right left greater than left, REED Location: Cardiovascular and Derm Current Severity: Mild Maximum Severity: Moderate Worsened by: Activity and supine position Relieved by: Remaining still and sleeping with 3 pillows Associated Symptoms Associated Symptoms: Subjective fever with chills and drainage from RLE Narrative Narrative: Patient is a 50-year-old woman. She presents because of multiple symptoms. She is complaining of dyspnea on exertion which she has a past medical history of. She has history of respiratory failure with hypoxemia. She does have obstructive sleep apnea. She is not compliant at all times with her CPAP device. Patient complains of subjective fever with chills. She denies headache, visual, ocular auditory symptoms. She denies chest pressure, tightness or heaviness. She does endorse 3 pillow orthopnea and dyspnea on exertion. She also endorses increased swelling of her lower extremities. There is drainage from the right. She has noted blisters on the left. She denies symptoms of claudication. She has been a type II diabetic for 20+ years. Has been on insulin for 5 years. Prior similar symptoms: Yes Recent Illness/Hospitalization: No PFSH PFSH Medical History MRSA cellulitis of left foot Cellulitis of leg Arthritis Non-smoker CHF (congestive heart failure) History of diabetes mellitus Anemia Hypoxia Morbid obesity Venous stasis dermatitis of both lower extremities BMI 60.0-69.9, adult Noncompliance with CPAP treatment Acute on chronic respiratory failure with hypoxia and hypercapnia Perianal abscess Type 2 diabetes mellitus with hyperglycemia Contusion of knee, right Chronic diastolic (congestive) heart failure Depression Diabetes GERD (gastroesophageal reflux disease) BiPAP (biphasic positive airway pressure) dependence Sleep apnea On home oxygen therapy Smoker COPD (chronic obstructive pulmonary disease) Hypertension Congestive heart failure KERRY (acute kidney injury) Chronic respiratory failure with hypoxia Opiate overdose History of left heart catheterization (LHC) (~01/05/19) Type 2 diabetes mellitus Old myocardial infarction Essential hypertension Restrictive lung disease secondary to obesity Dyspnea on exertion Pulmonary embolism Hidradenitis Non-healing open wound of left groin Open wound of vulva with complication Necrotizing soft tissue infection Abscess of vulva Soft tissue abscess of inguinal region Respiratory failure with hypoxia Abscess Hyperglycemia due to type 2 diabetes mellitus NSTEMI (non-ST elevated myocardial infarction) Tobacco abuse Hyperlipidemia Morbid obesity History of MRSA infection Anxiety 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 Home Medications ?Medication ?Instructions ?Recorded ?Last Taken ?Type multivit-iron 18 mg-folic acid 400 1 ea PO DAILY supplement 03/26/17 07/14/23 History mcg-calcium 500 mg-minerals tablet omeprazole 40 mg capsule,delayed 40 mg PO DAILY GERD 12/15/18 07/14/23 History release loratadine 10 mg tablet 10 mg PO DAILY PRN Allergies 03/01/20 07/14/23 History apixaban 5 mg tablet 5 mg PO BID blood thinner 08/20/20 07/14/23 History diltiazem HCl 120 mg 120 mg PO DAILY heart rate 08/20/20 07/14/23 History capsule,extended release 24 hr lisinopril 10 mg tablet 10 mg PO DAILY blood pressure 03/26/21 07/14/23 History metformin 500 mg tablet,extended 1,000 mg PO DAILY diabetes 03/26/21 07/14/23 History release 24 hr metoprolol succinate 25 mg 25 mg PO DAILY blood pressure 03/26/21 07/14/23 History tablet,extended release 24 hr atorvastatin 80 mg tablet 80 mg PO QHS cholesterol 02/07/22 07/14/23 History furosemide 40 mg tablet 80 mg PO DAILY diuretic 09/22/22 07/14/23 History albuterol sulfate 2.5 mg/3 mL 2.5 mg inhalation Q4H PRN SOB 12/09/22 07/10/23 History (0.083 %) solution for nebulization fenofibrate nanocrystallized 145 145 mg PO DAILY CHOLESTEROL 12/09/22 07/14/23 History mg tablet insulin glargine U-300 conc 300 104 unit subcut BID diabetes 07/14/23 07/13/23 History unit/mL (3 mL) subcutaneous pen (Toujeo Max U-300 SoloStar) semaglutide 1 mg/dose (4 mg/3 mL) 1 mg subcut .1XW diabetes 07/14/23 07/13/23 History subcutaneous pen injector (Ozempic) metolazone 2.5 mg tablet 2.5 mg PO .every tues/thurs #8 tabs 07/15/23 Unknown Rx oxycodone-acetaminophen 5 mg-325 1 tab PO Q6H PRN pain 3 days #12 01/15/24 Unknown Rx mg tablet (Percocet) tabs potassium chloride 20 mEq See Rx Instructions .Route 08/05/24 Unknown Rx tablet,extended release(part/cryst) .COMPLEX #60 TABLETS duloxetine 60 mg capsule,delayed 60 mg PO DAILY 11/09/24 Unknown History release ergocalciferol (vitamin D2) 1,250 1,250 mcg PO QWEEK 11/09/24 Unknown History mcg (50,000 unit) capsule (Vitamin D2) ferrous sulfate 325 mg (65 mg 325 mg PO DAILY 11/09/24 Unknown History iron) tablet (FeroSul) lorazepam 1 mg tablet 1 mg PO TID 11/09/24 Unknown History cephalexin 500 mg capsule 500 mg PO TID #14 caps 11/12/24 Unknown Rx doxycycline monohydrate 100 mg 100 mg PO BID 5 days #10 caps 11/12/24 Unknown Rx capsule methocarbamol 750 mg tablet 1,500 mg PO TID muscle spasm 08/16/25 Unknown History oxycodone 15 mg tablet 15 mg PO Q6H PRN PRN pain 08/16/25 Unknown History pregabalin 150 mg capsule 150 mg PO TID 08/16/25 Unknown History semaglutide 2 mg/dose (8 mg/3 mL) mg subcut 08/16/25 Unknown History subcutaneous pen injector (Ozempic) Allergy/AdvReac Type Severity Reaction Status Date / Time cyclobenzaprine HCl (From Allergy Hives Verified 08/16/25 18:21 Flexeril) venlafaxine (From Effexor) AdvReac Severe hives Verified 08/16/25 18:21 Family History Father CVA (cerebral vascular accident) Heart disease Diabetes Mother Thyroid disorder Surgical History History of delivery H/O arthroscopic knee surgery History of cholecystectomy Social History household members: none Smoking Status: Current some day smoker tobacco type: cigarettes and e-cigarettes how long ago did patient quit smokin PPD smoker second hand exposure: Yes alcohol intake: never substance use type: does not use caffeine: Yes Type: carbonated beverages Number of servings: 1 and coffee Number of servings: 1 ROS ROS ED Constitutional Constitutional ED: Reports chills, fever(s) and subjective; Denies sweats Eyes Eyes: Denies blurry vision or change in vision ENT ENT ED: Denies ear pain or rhinorrhea Cardiovascular Cardiovascular: Denies chest pain or palpitations Respiratory/Chest Respiratory/Chest: Denies cough, dyspnea or dyspnea on exertion Gastrointestinal Gastrointestinal: Reports nausea; Denies abdominal pain, constipation or vomiting Genitourinary Genitourinary ED: Reports urinary frequency; Denies dysuria or hematuria Musculoskeletal Musculoskeletal: Denies arthralgias or myalgias Integumentary Reports rash Neurologic Neurologic: Reports weakness; Denies headache(s) or paresthesias Endocrine Endocrinology: Denies cold intolerance or heat intolerance Hematologic/Lymphatic Hematologic/Lymphatic: Reports systems reviewed and no addt'l complaints, except as documented EXAM Physical Exam Const Vital Signs: 08/16/25 18:21 08/16/25 19:24 08/16/25 20:00 Temperature 98.1 F 98.6 F 98.9 F Temperature Source Temporal Oral Oral Pulse Rate 99 90 91 Respiratory Rate 20 H 17 14 Blood Pressure 156/71 H 122/59 H 144/69 H Blood Pressure Mean 99 80 94 Pulse Ox 96 96 99 Oxygen Delivery Method Nasal Cannula Room Air Nasal Cannula Oxygen Flow Rate (L/min) 5 5 Positive well nourished and well developed Constitutional Narrative: Blood pressure is elevated. She is not hypoxic. General Appearance ED: well developed HEENT Reports dry mucous membranes HEENT Narrative: Head is atraumatic, cephalic. Ears are normal. Nares are patent. Patient has floppy eye eyelid syndrome. Posterior pharynx is normal. Mouth ED: Yes dry mucous membranes Mouth: dry mucous membranes Eyes PERRL and EOMs intact bilaterally General Eye ED: Negative for pale conjunctiva or scleral icterus Neck no lymphadenopathy and supple Neck Narrative: Unable to assess for JVD due to body habitus. Chest Wall inspection of chest normal and palpation of chest normal Resp normal respiratory effort and clear to auscultation bilaterally Cardio regular rate, regular rhythm, S1 normal heart sound, S2 normal heart sound and no murmurs GI normal to inspection, nondistended, normoactive bowel sounds, non-tender, non-distended and no masses; Negative for hepatosplenomegaly GI Narrative: Exam limited due to body habitus. Back/Spine Back/Spine Narrative: Inspection of the back is normal. Extremity Extremity Narrative: Patient has venous stasis dermatitis bilaterally. Patient has pustular drainage noted from the anterior mid right leg. The area is warm and slightly indurated. Patient's great toenail spontaneously fell off. Probably due to mild infection. Neuro oriented x3, CN's II-XII intact bilaterally and No no sensory deficits noted Sensorium / Orientation: alert Psych mental status grossly normal Skin Skin Narrative: Described under the extremity portion of the EMR MDM MDM MDM Narrative Medical decision making narrative: Differential diagnosis includes CHF, chronic dyspnea on exertion due to BMI of 67, pneumonia and cardiac ischemia. Will obtain EKG, troponin, BNP. Patient has a infected right leg with mucopurulent drainage. Culture was obtained. Patient was started on antibiotics Unasyn and vancomycin since she has prior history of MRSA. Electrolyte panel was obtained as well as CBC to assess for endorgan dysfunction. Lab Data Attestation: I reviewed the patient's lab results. Lab results narrative: White count is normal with an H&H 9.2 and 29.6 with normal indices. Comprehensive metabolic panel reveals an elevated BUN to creatinine ratio of 29:1. Blood sugar is elevated 525 with a normal CO2 anion gap. Lactate is normal. Liver enzymes are normal. Troponin is slight elevated 37. This is nondiagnostic. 2-hour has been ordered. Labs: Laboratory Results - last 24 hr 08/16/25 19:30 WBC 9.4 RBC 3.26 L Hgb 9.2 L Hct 29.6 L MCV 90.8 MCH 28.2 MCHC 31.1 L RDW Std Deviation 45.8 H RDW Coeff of [place] 13.7 Plt Count 254 MPV 10.5 Immature Gran % (Auto) 0.600 Neut % (Auto) 72.2 H Lymph % (Auto) 20.4 [place] % (Auto) 4.1 Eos % (Auto) 2.0 Baso % (Auto) 0.7 Absolute Neuts (auto) 6.8 Absolute Lymphs (auto) 1.92 Nucleated RBC % 0 PT 14.3 INR 1.1 APTT 29.8 Sodium 134 Potassium 3.8 Chloride 90 L Carbon Dioxide 30.0 Anion Gap 14 BUN 32 H Creatinine 1.07 Estim Creat Clear Calc 110.03 Est GFR (MDRD) Non-Af 64 BUN/Creatinine Ratio 29.7 H Glucose 525 H* Lactic Acid 1.9 Calcium 8.2 Total Bilirubin 0.23 AST 24 ALT 23 Alkaline Phosphatase 81 Troponin T High Sens 37 H NT pro BNP II 163 Total Protein 6.7 Albumin 3.5 Globulin 3.2 Albumin/Globulin Ratio 1.1 Radiography Chest X-Ray - ED: 2 View, Read by ED Physician (There is no obvious infiltrate, effusion. I do not appreciate cephalization or curly B-lines.), No Acute Disease, Chronic Changes and Cardiomegaly Diagnostic Testing: Clinical Impression(s) from Imaging Studies Chest X-Ray 08/16/25 19:05 IMPRESSION: Cardiomegaly with vascular congestion. No airspace consolidation or pleural effusions. Reading Location: [facility] The radiology report was reviewed. Agree with cardiomegaly disagree with vascular congestion. Furthermore patient has no rales and BNP is normal. EKG Initial EKG: Attestation: I personally reviewed and interpreted this EKG as follows: Interpretation: Sinus Rhythm (Rate is 93. ND interval is 140 ms. Cures duration 86 ms her QT duration [place] 68 ms. [place] normal. EKG is normal.) Management Discussion w/another healthcare provider: Hospitalist (Spoke with Dr. Mas. Full admission PCU.) Treatment and Re-Evaluation :: Patient received 15 units of insulin for her blood sugar 525. The hospitalist was paged for admission. Discharge Plan Dx/Rx/DC Orders Clinical Impression: Cellulitis and abscess of right leg, Morbid obesity, Type 2 diabetes mellitus with hyperglycemia, Restrictive lung disease secondary to obesity, Chronic respiratory failure with hypoxia, Acute prerenal azotemia, Chronic venous stasis dermatitis, 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, Elevated troponin Disposition Disposition: [facility]
[2025-08-16] MEDS: Vancomycin HCl 2,000 MG in 0.9% Normal Saline (500mL Bag) 500 ML 250 MG IV (20:48)
[2025-08-16 21:00] VITALS: BP 146/71; PULSE 88; PULSE 95; RESP 19; TEMP 36.9; TEMP 37.3; O2SAT 96; O2SAT 97
--- NOTE | 2025-08-16 21:06 | HP.PCM.HOS_ITS ---
HPI - General General Date of Admission: 08/16/25 Date of Service: 08/16/25 Chief Complaint: Worsening LE edema, orthopnea, dyspnea, RLE stasis blisters with drainage. 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, uncertain, HFpEF, COPD w/ Chronic Hypoxic and Hypercapnic Respiratory Failure (4L NC), LOGAN on BIPAP, HTN, HLD, GERD, Anxiety and Depression, Former Tobacco use, Diabetes mellitus type II with chronic neuropathy, Hx VTE who presents to the [facility] ED on 08/16/2025 with history of increasing edema to the lower extremity, dyspnea worse with exertion with drainage to the right lower extremity and redness with subjective fever and chills noting that the edema to the right has been greater with notable orthopnea concurrently with some admission that she has not been compliant intermittently with her PAP therapy prompting eventual ED evaluation. Workup in the ED included T98.1, heart rate 99, BP 156/71, respiratory rate 20, 96% on 5 L nasal cannula with patient most recently noted to be on 4 L nasal cannula 10/2024 with most recent repeat vitals T98.9 Oral, heart rate 91, BP 134/69, respiratory rate 14, 99% on 5 L nasal cannula, CBC with WC 9.4, hemoglobin 9.2, MCV 90.8, platelet 254 without marked shift, unremarkable coags, CMP with chloride 90, BUN/creatinine 32/1.07, GFR 64, glucose 525, lactic acid 1.9, anion gap 14, hepatic profile unremarkable, initial troponin 37, NT proBNP II 163, chest x-ray with cardiomegaly with vascular congestion, EKG with sinus rhythm with no acute evidence of ischemia, blood culture x 2 pending per ED. In the ED patient ministered Unasyn 3 g IV x 1, insulin U-500 15 units subcu x 1, vancomycin 2000 mg IV x 1, oxycodone 10 mg p.o. x 1. From review of records 11/12/2024 last weight of patient 387 pounds now upon current presentation up to 408 pounds. [facility] Medical History (Updated 08/16/25 @ 21:[address] Olamide Mas MD) Cellulitis of leg MRSA cellulitis of left foot Arthritis Non-smoker CHF (congestive heart failure) History of diabetes mellitus Anemia Hypoxia Morbid obesity Venous stasis dermatitis of both lower extremities BMI 60.0-69.9, adult Noncompliance with CPAP treatment Acute on chronic respiratory failure with hypoxia and hypercapnia Perianal abscess Type 2 diabetes mellitus with hyperglycemia Contusion of knee, right Chronic diastolic (congestive) heart failure Depression Diabetes GERD (gastroesophageal reflux disease) BiPAP (biphasic positive airway pressure) dependence Sleep apnea On home oxygen therapy Smoker COPD (chronic obstructive pulmonary disease) Hypertension Congestive heart failure KERRY (acute kidney injury) Chronic respiratory failure with hypoxia Opiate overdose History of left heart catheterization (LHC) (~01/05/19) Type 2 diabetes mellitus Old myocardial infarction Essential hypertension Restrictive lung disease secondary to obesity Dyspnea on exertion Pulmonary embolism Hidradenitis Non-healing open wound of left groin Open wound of vulva with complication Necrotizing soft tissue infection Abscess of vulva Soft tissue abscess of inguinal region Respiratory failure with hypoxia Abscess Hyperglycemia due to type 2 diabetes mellitus NSTEMI (non-ST elevated myocardial infarction) Tobacco abuse Hyperlipidemia Morbid obesity History of MRSA infection Anxiety 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 Home Medications ?Medication ?Instructions ?Recorded ?Last Taken ?Type multivit-iron 18 mg-folic acid 400 1 ea PO DAILY suppl ement 03/26/17 07/14/23 History mcg-calcium 500 mg-minerals tablet omeprazole 40 mg capsule,delayed 40 mg PO DAILY GERD 0 12/15/18 07/14/23 History release loratadine 10 mg tablet 10 mg PO DAILY PRN Allergies 03/01/20 07/14/23 History apixaban 5 mg tablet 5 mg PO BID blood thinner 07/14/23 History diltiazem HCl 120 mg 120 mg PO DAILY heart rate 0 08/20/20 07/14/23 History capsule,extended release 24 hr lisinopril 10 mg tablet 10 mg PO DAILY blood pressur e 03/26/21 07/14/23 History metformin 500 mg tablet,extended 1,000 mg PO DAILY richard betes 03/26/21 07/14/23 History release 24 hr metoprolol succinate 25 mg 25 mg PO DAILY blood pressu re 03/26/21 07/14/23 History tablet,extended release 24 hr atorvastatin 80 mg tablet 80 mg PO QHS cholesterol 09/2107/14/23 History furosemide 40 mg tablet 80 mg PO DAILY diuretic 09/0107/14/23 History albuterol sulfate 2.5 mg/3 mL 2.5 mg inhalation Q4H NJ N SOB 12/09/22 07/10/23 History (0.083 %) solution for nebulization fenofibrate nanocrystallized 145 145 mg PO DAILY MACIEL STEROL 12/09/22 07/14/23 History mg tablet insulin glargine U-300 conc 300 104 unit subcut BID di abetes 07/14/23 07/13/23 History unit/mL (3 mL) subcutaneous pen (Toujeo Max U-300 SoloStar) semaglutide 1 mg/dose (4 mg/3 mL) 1 mg subcut .1XW richard betes 07/14/23 07/13/23 History subcutaneous pen injector (Ozempic) metolazone 2.5 mg tablet 2.5 mg PO .every / #8 tabs 07/15/23 Unknown Rx oxycodone-acetaminophen 5 mg-325 1 tab PO Q6H PRN pain 3 days #12 01/15/24 Unknown Rx mg tablet (Percocet) tabs potassium chloride 20 mEq See Rx Instructions .Route 0 08/05/24 Unknown Rx tablet,extended release(part/cryst) .COMPLEX #60 TABLE TS duloxetine 60 mg capsule,delayed 60 mg PO DAILY Unknown History release ergocalciferol (vitamin D2) 1,250 1,250 mcg PO QWEEK 1 01/10/24 Unknown History mcg (50,000 unit) capsule (Vitamin D2) ferrous sulfate 325 mg (65 mg 325 mg PO DAILY 11/09/24 Unknown History iron) tablet (FeroSul) lorazepam 1 mg tablet 1 mg PO TID 11/09/24 Unknown History cephalexin 500 mg capsule 500 mg PO TID #14 caps 11/12 Unknown Rx doxycycline monohydrate 100 mg 100 mg PO BID 5 days #1 0 caps 11/12/24 Unknown Rx capsule methocarbamol 750 mg tablet 1,500 mg PO TID muscle spa sm 08/16/25 Unknown History oxycodone 15 mg tablet 15 mg PO Q6H PRN PRN pain Unknown History pregabalin 150 mg capsule 150 mg PO TID 08/16/25 Unkno wn History semaglutide 2 mg/dose (8 mg/3 mL) mg subcut 08/16/25 U nknown History subcutaneous pen injector (Ozempic) Allergy/AdvReac Type Severity Reaction Status Date / Time cyclobenzaprine HCl (From Allergy Hives Verified 08/16/25 18:21 Flexeril) venlafaxine (From Effexor) AdvReac Severe hives Verified 08/16/25 18:21 Family History Father CVA (cerebral vascular accident) Heart disease Diabetes Mother Thyroid disorder Surgical History History of delivery H/O arthroscopic knee surgery History of cholecystectomy Social History (Updated 08/16/25 @ 21:[address] Olamide Mas MD) household members: none Smoking Status: Former smoker how long ago did patient quit smokin PPD smoker, quit x 1 year approximately. second hand exposure: Yes alcohol intake: never substance use type: does not use caffeine: Yes Type: carbonated beverages Number of servings: 1 and coffee Number of servings: 1 ROS ROS Narrative Admission Review of Systems: CONSTITUTIONAL: No weight loss, + subjective fever, chills, weakness or fatigue. HEENT: Eyes: No visual loss, blurred vision, double vision or yellow sclerae. Ears, Nose, Throat: No hearing loss, sneezing, congestion, runny nose or sore throat. SKIN: No rash or itching, lesions except + significant bilateral lower extremity venous stasis skin changes, stasis blister wounds/seepage RLE. CARDIOVASCULAR: + Increased lower extremity swelling, edema, worsened orthopnea, weight gain. No chest pain, chest pressure or chest discomfort, palpitations, syncopal events. RESPIRATORY: + Dyspnea, worse with exertion. No marked cough, productive sputum or wheezing. No hemoptysis. GASTROINTESTINAL: No anorexia, nausea, vomiting or diarrhea, abdominal pain, melena, BRBPR. GENITOURINARY: No dysuria, frequency, urgency or retention. NEUROLOGICAL: No headache, dizziness, syncope, paralysis, ataxia, numbness or tingling in the extremities, focal weakness, change in bowel or bladder control, seizure. MUSCULOSKELETAL: + muscle, back pain, joint pain or stiffness. HEMATOLOGIC: + Chronic anemia, easy bleeding/bruising. PSYCHIATRIC: + History of anxiety and depression. ENDOCRINOLOGIC: No reports of sweating. + Reported recent cold or heat intolerance. No polyuria or polydipsia. ALLERGIES: + History of hives, allergic rhinitis. Vital Signs Vital Signs Vital Signs: 08/16/25 18:21 08/16/25 19:24 08/16/25 20:00 Temperature 98.1 F 98.6 F 98.9 F Temperature Source Temporal Oral Oral Pulse Rate 99 90 91 Respiratory Rate 20 H 17 14 Blood Pressure 156/71 H 122/59 H 144/69 H Blood Pressure Mean 99 80 94 Pulse Ox 96 96 99 Oxygen Delivery Method Nasal Cannula Room Air Nasal Cannula Oxygen Flow Rate (L/min) 5 5 Weight Weight: 408 lb 15.32 oz Body Mass Index (BMI) 67.3 Physical Exam Narrative Physical Examination: General: Awake, alert, oriented x 3, fatigued appearing, uncomfortable appearing, cooperative, seated upright in the ED bed. Skin: Normal color, normal turgor, no icterus, no cyanosis except for significant bilateral lower extremity venous stasis skin changes, chronic significant edema pedal to proximal stratton, erythematous lichenified skin noted, bilateral venous stasis blisters with wounds with seepage, R> L with odor associated and increased erythema to the focused RLE. HEENT: AT/NC, EOMI, PERRLA, MMM, no carotid bruits, unable to discern JVD given thickened neck. Lungs: Significantly diminished, greater bases, mildly increased respiratory rate but no distress, no appreciated rales, rhonchi or wheezing. Heart: Regular rate with regular rhythm; no gallop, rub audible. Abdomen: Soft, morbidly obese, NTTP, distant BS, difficult to discern distention and HSM given habitus. Extremities: No cyanosis, no clubbing, see skin. Neurological: Awake, alert, oriented as noted, cognitive function intact, pupils equally reactive to light and accommodation, cranial nerves grossly normal, moving all 4 extremities, no focal deficits, strength severely globally decreased secondary to acute presentation complaints, habitus underlying comorbidities. Psychiatric: Affect appears fatigued, uncomfortable noting discomfort to bilateral lower extremities, no acute evidence of depressive or anxiety feelings but does have underlying history. Results Lab / Micro Data 08/16/25 19:30 08/16/25 19:30 Labs: Laboratory Results - last 24 hr 08/16/25 19:30: WBC 9.4, RBC 3.26 L, Hgb 9.2 L, Hct 29.6 L, MCV 90.8, MCH 28.2, MCHC 31.1 L, RDW Std Deviation 45.8 H, RDW Coeff of Darrion 13.7, Plt Count 254, MPV 10.5, Immature Gran % (Auto) 0.600, Neut % (Auto) 72.2 H, Lymph % (Auto) 20.4, [place] % (Auto) 4.1, Eos % (Auto) 2.0, Baso % (Auto) 0.7, Absolute Neuts (auto) 6.8, Absolute Lymphs (auto) 1.92, Nucleated RBC % 0, PT 14.3, INR 1.1, APTT 29.8, Sodium 134, Potassium 3.8, Chloride 90 L, Carbon Dioxide 30.0, Anion Gap 14, BUN 32 H, Creatinine 1.07, Estim Creat Clear Calc 110.03, Est GFR (MDRD) Non-Af 64, BUN/Creatinine Ratio 29.7 H, Glucose 525 H*, Lactic Acid 1.9, Calcium 8.2, Total Bilirubin 0.23, AST 24, ALT 23, Alkaline Phosphatase 81, Troponin T High Sens 37 H, NT pro BNP II 163, Total Protein 6.7, Albumin 3.5, Globulin 3.2, Albumin/Globulin Ratio 1.1 Imaging Radiology Impression Chest X-Ray 08/16/25 19:05 IMPRESSION: Cardiomegaly with vascular congestion. No airspace consolidation or pleural effusions. Reading Location: [facility] Assessment & Plan Assessment/Plan (1) Cellulitis of leg: QUALIFIERS: Laterality: left Qualified Code(s): L03.116 - Cellulitis of left lower limb PLAN: Plan The patient is a 50 y/o F w/ PMHx: Morbid obesity, Chronic anemia/iron deficiency anemia, CKD stage II versus III, uncertain, HFpEF, COPD w/ Chronic Hypoxic and Hypercapnic Respiratory Failure (4L NC), LOGAN on BIPAP, HTN, HLD, GERD, Anxiety and Depression, Former Tobacco use, Diabetes mellitus type II with chronic neuropathy, Hx VTE who presents to the [facility] ED on 08/16/2025 with history of increasing edema to the lower extremity, dyspnea worse with exertion with drainage to the right lower extremity and redness with subjective fever and chills noting that the edema to the right has been greater with notable orthopnea concurrently with some admission that she has not been compliant intermittently with her PAP therapy prompting eventual ED evaluation. #1. Acute right anterior mid lower extremity cellulitis (no obvious abscess) with seeping stasis wounds BL, R>L, complicated by underlying bilateral lower extremity venous stasis dermatitis with #2 as noted: Will admit to PCU, will maintain on IV Vanco and Unasyn, pending wound Cx per ED and will also request wound MRSA PCR, plan repeat CBC in AM, continue affected extremity elevation above heart when seated and in bed, monitor erythema outline with VS checks, continue home Eliquis regimen, if able to tolerate will place neck abel wraps with lower extremity elevation, requested procalcitonin, diuresis to assist also as noted. #2. Questionable Acute Decompensated HFpEF with indeterminate cardiac enzymes suspected secondary to demand: Will maintain on cardiac telemetry obtain cardiac enzyme series, obtain serial EKGs, continue IV lasix diuresis as this will also help with #1, monitor I/Os, maintain on intake restriction, continue medical therapy, obtain TSH and magnesium level. Most recent echo noted 11/12/2024 with EF 55% with no evidence of diastolic dysfunction thus will not repeat. Complicates #1, will maintain snug abel wraps with lower extremity elevation if able to tolerate. BiPAP as needed with naps and nightly encouraged strongly. PT/OT/case management consulted for discharge planning. #3. Diabetes mellitus type II w/ Hyperglycemia with chronic neuropathy: Likely hyperglycemia is associated with acute presentation as noted, hemoglobin A1c requested with last noted 11/10/24 10.4%, hold oral home regimen, continue home insulin regimen with adjustments as needed although currently attempting to clarify her home long-acting specific dosing, ADA diet, accu checks w/ ISS, continue home pregabalin regimen. #4. Chronic Kidney Disease Stage II based on previous GFR trending but has vacillated and sometimes been consistent with stage III but unclear if this is acutely, will discern further with further lab assessment: Admission BUN/Cr 32/1.07, GFR 64, GFR 45, baseline renal function primarily 0.8-1.1, GFR has certainly vacillated thus unclear if stage II versus stage III, will continue to trend to further elucidate. #5. Chronic normocytic anemia/iron deficiency anemia: Admission hemoglobin 9.2, MCV 90.8, baseline hemoglobin primarily recently 8-9 range, we will continue to trend CBC, continue iron supplementation. #6. Chronic COPD with chronic hypoxic and hypercarbic respiratory failure (4L NC) with allergic rhinitis: Will maintain on oxygen supplementation with wean as tolerated to home oxygen 4 L nasal cannula supplementation, continue ATC budesonide therapy, PRN albuterol, HOB, IS parameters. Temporally holding loratadine regimen. #7. Anxiety and depression: We will continue patient home lorazepam and duloxetine home regimen. #8. Hypertension: Continue home regimen including diltiazem, lisinopril, metoprolol, Lasix IV as noted, PRN hydralazine. #9. Hyperlipidemia: Continue home statin and fenofibrate regimen. FLP in AM. #10. History of VTE: We will continue patient home apixaban regimen. #11. GERD: We will continue patient home PPI. #12. LOGAN: Will place on BiPAP nightly, encourage compliance. #13. Former Tobacco Abuse: Encouraged continued tobacco cessation, notes quit for approximately 1 year. #14. DVT prophylaxis: Eliquis. #15. CODE status: Patient JAKE is her daughter and living will is in place. Full Code status. Charges/Coding Visit Charges Inpatient E&M: 25168 Init Hosp L3
[2025-08-16] MEDS: Insulin U-500 UNITS/ML PEN 15 UNITS SC (21:22)
[2025-08-16 22:47] VITALS: BMI 67.3
[2025-08-16 22:57] LABS: Magnesium 1.4 mg/dL (1.5-2.2)
[2025-08-16 23:00] VITALS: BP 135/68; PULSE 88; RESP 24; TEMP 36.7; O2SAT 94
[2025-08-16 23:10] VITALS: BP 135/68; PULSE 88; RESP 24; TEMP 36.7; O2SAT 94
--- NOTE | 2025-08-16 23:17 | PCM.RX.CS ---
Consult Antibiotic Management Pharmacy has been consulted to manage selected antibiotic: Vancomycin Type of Intervention Type of Consult: New start Suspected Infection Suspected Infection: Skin/Soft tissue Labs Labs: Sodium 134 mmol/L (133-145) 08/16/25 19:30 Potassium 3.8 mmol/L (3.3-5.1) 08/16/25 19:30 Chloride 90 mmol/L (98-108) L 08/16/25 19:30 Carbon Dioxide 30.0 mmol/L (21.0-32.0) 08/16/25 19:30 Anion Gap 14 (5-15) 08/16/25 19:30 BUN 32 mg/dL (4-19) H 08/16/25 19:30 Creatinine 1.07 mg/dL (0.70-1.20) 08/16/25 19:30 Est GFR (MDRD) Non-Af 64 (>60) 08/16/25 19:30 BUN/Creatinine Ratio 29.7 RATIO (10-20) H 08/16/25 19:30 Glucose 525 mg/dL (70-99) H* 08/16/25 19:30 Estimated Creatinine Clearance Estimated Creatinine Clearance: 110.03 Goal Trough Goal Trough: 15-20 mcg/mL Pharmacy Plan for Drug Dosing Pharmacy Plan for Drug Dosing: NEW START IV VANCOMYCIN Consulting Physician: Dr. Mas Indication: RLE Cellulitis Goal Trough: 15-20 SrCr: 1.07 CrCl: 110.03 Comments: Received 2000mg x1 dose in ED @ 20:48 08/16/25 Vancomycin Dose: 1500mg Q8H to start @ 05:00 08/17/25 Pending Level: 08/17/25 @ 20:30 prior to 4th dose Pharmacy Service will continue to monitor and adjust dosing as required. Follow-Up Labs Follow-Up Labs: Trough: Vancomycin (08/17/25 @ 20:30)
[2025-08-16] MEDS: APIXABAN 5 MG TABLET PO (23:26)
[2025-08-16 23:33] VITALS: BMI 67.3
[2025-08-17] VITALS (15 sets, daily range): BP systolic 116–140; BP diastolic 46–94; PULSE 66–88; RESP 14–26; TEMP 36.6–36.8; O2SAT 90–97
[2025-08-17 00:38] LABS: Troponin T High Sensitivity 37 ng/L (<=14)
[2025-08-17] MEDS: Magnesium Sulfate 2 GM in Dextrose 5%-Water (100mL Bag) 100 ML IV (00:48)
[2025-08-17 01:14] LABS: Procalcitonin 0.13 ng/mL (<=0.10)
[2025-08-17 01:57] LABS: Troponin T High Sens 2 HR 35 ng/L (<=14)
[2025-08-17] MEDS: Vancomycin HCl 1,500 MG in 0.9% Normal Saline (500mL Bag) 500 ML 250 MG IV ×2 (05:13→11:52)
[2025-08-17 05:25] LABS: AST(SGOT) 19 U/L (<=31); Alanine Aminotransfer ALT/SGPT 20 U/L (<=34); Albumin, Serum 3.5 g/dL (3.5-5.0); Alkaline Phosphatase 76 U/L (35-104); Anion Gap 15 (5-15); BUN 31 mg/dL (4-19); BUN/Creat Ratio 29.9 RATIO (10-20); Calcium,Total 8.1 mg/dL (7.6-11.0); Carbon Dioxide 28.0 mmol/L (21.0-32.0); Chloride 92 mmol/L (98-108); Cholesterol 146 mg/dL (<=200); Estimated Creatinine Clearance 113.55 ml/min (50-250); Globulin 3.2 g/dL (2.2-4.2); Glucose 383 mg/dL (70-99); Low Density Lipoprotein Calc. 74 mg/dL; Potassium 3.9 mmol/L (3.3-5.1); Triglycerides 218 mg/dL; Very Low Density Lipoprotein 44 mg/dL (5-40); cholesterol:hdl ratio screen 5.14
[2025-08-17 05:37] LABS: Troponin T High Sens 4 HR 35 ng/L (<=14)
[2025-08-17 05:51] LABS: Hematocrit 30.2 % (37-47); Hemoglobin 9.3 g/dL (12.0-15.0); Mean Corp Hgb Conc 30.8 g/dL (32-36); Mean Corpuscular Volume 91.8 fL (81-99); Platelet Count 221 K/mm3 (150-450); RBC Distribution Width CV 13.7 % (11.6-14.6); RBC Distribution Width SD 46.1 fl (35.1-43.9); Red Blood Count 3.29 M/mm3 (4.2-5.4); White Blood Count 8.7 K/mm3 (4.4-11.0)
[2025-08-17 05:52] LABS: Immature Granulocytes Count 0.040 X10^3/uL (0.0-0.0); Mean Platelet Vol. 10.1 fl (6.2-12.0)
[2025-08-17] MEDS: 0.9% Saline Lock 10 ML Syringe IV ×2 (06:07→17:29)
[2025-08-17] MEDS: Ampicillin/Sulbactam 3 GM in 0.9% Normal Saline (100mL MB+) 100 ML IV ×3 (06:26→17:27)
--- NOTE | 2025-08-17 06:59 | PCM.PN.HOSP ---
Reason for Visit Chief Complaint: Worsening LE edema, orthopnea, dyspnea, RLE stasis blisters with drainage. Objective Data Objective Data Vital Signs: Vital Signs Temp Pulse Resp BP Pulse Ox O2 Del Method O2 Flow Rate 98.0 F 88 16 135/68 H 96 Nasal Cannula 4 08/16/25 23:10 08/16/25 23:10 08/17/25 00:47 08/16/25 23:10 08/17/25 00:47 08/17/25 00:35 08/17/25 00:35 FiO2 30 08/17/25 00:47 Oxygen Flow Rate (L/min) 4 Oxygen Delivery Method Nasal Cannula Weight: 183.7 kg Body Mass Index (BMI) 67.3 Intake & Output: Intake and Output for Last 24 Hours 08/15/25 08/16/25 08/17/25 23:59 23:59 23:59 Intake Total 77.5 / 77.5 744 / 744 Output Total 1100 / 1100 Balance 77.5 / 77.5 -356 / -356 Lab / Micro Data 08/17/25 03:34 08/17/25 03:34 Labs: Laboratory Results - last 24 hr 08/16/25 19:30: WBC 9.4, RBC 3.26 L, Hgb 9.2 L, Hct 29.6 L, MCV 90.8, MCH 28.2, MCHC 31.1 L, RDW Std Deviation 45.8 H, RDW Coeff of Darrion 13.7, Plt Count 254, MPV 10.5, Immature Gran % (Auto) 0.600, Neut % (Auto) 72.2 H, Lymph % (Auto) 20.4, [place] % (Auto) 4.1, Eos % (Auto) 2.0, Baso % (Auto) 0.7, Absolute Neuts (auto) 6.8, Absolute Lymphs (auto) 1.92, Nucleated RBC % 0, PT 14.3, INR 1.1, APTT 29.8, Sodium 134, Potassium 3.8, Chloride 90 L, Carbon Dioxide 30.0, Anion Gap 14, BUN 32 H, Creatinine 1.07, Estim Creat Clear Calc 110.03, Est GFR (MDRD) Non-Af 64, BUN/Creatinine Ratio 29.7 H, Glucose 525 H*, Lactic Acid 1.9, Calcium 8.2, Magnesium 1.4 L, Total Bilirubin 0.23, AST 24, ALT 23, Alkaline Phosphatase 81, Troponin T High Sens 37 H, NT pro BNP II 163, Total Protein 6.7, Albumin 3.5, Globulin 3.2, Albumin/Globulin Ratio 1.1 08/16/25 23:22: POC Glucose 395 H 08/16/25 23:35: Troponin T High Sens 37 H, Procalcitonin 0.13 H 08/17/25 01:05: POC Glucose 382 H 08/17/25 01:30: Troponin T Hi Sens 2 Hr 35 H 08/17/25 03:34: WBC 8.7, RBC 3.29 L, Hgb 9.3 L, Hct 30.2 L, MCV 91.8, MCH 28.3, MCHC 30.8 L, RDW Std Deviation 46.1 H, RDW Coeff of Darrion 13.7, Plt Count 221, MPV 10.1, Immature Gran % (Auto) 0.500, Neut % (Auto) 69.6, Lymph % (Auto) 21.7, [place] % (Auto) 4.7, Eos % (Auto) 2.5, Baso % (Auto) 1.0, Absolute Neuts (auto) 6.1, Absolute Lymphs (auto) 1.89, Sodium 135, Potassium 3.9, Chloride 92 L, Carbon Dioxide 28.0, Anion Gap 15, BUN 31 H, Creatinine 1.03, Estim Creat Clear Calc 113.55, Est GFR (MDRD) Non-Af 67, BUN/Creatinine Ratio 29.9 H, Glucose 383 H, Hemoglobin A1c 12.5 H, Calcium 8.1, Total Bilirubin 0.19, AST 19, ALT 20, Alkaline Phosphatase 76, Troponin T Hi Sens 4Hr 35 H, Total Protein 6.7, Albumin 3.5, Globulin 3.2, Albumin/Globulin Ratio 1.1, Triglycerides 218 H, Cholesterol 146, LDL Cholesterol, Calc 74, VLDL Cholesterol 44 H, HDL Cholesterol 28 L, Cholesterol/HDL Ratio 5.14, TSH 6.510 H 08/17/25 06:11: POC Glucose 305 H Micro: Microbiology 08/16/25 18:45 Wound - Right Foot Skin and Soft Tissue MRSA/MSSA (PCR - Final Meth. resistant Staph. aureus Radiography Diagnostic Testing: Radiology Impression Chest X-Ray 08/16/25 19:05 IMPRESSION: Cardiomegaly with vascular congestion. No airspace consolidation or pleural effusions. Reading Location: [facility] Physical Exam Narrative GENERAL: dyspneic at rest HEENT: Atraumatic; moist oral mucosa EYES; Anicteric, Normal Conjunctiva NECK; supple, normal thyroid, no distended JVD. RESPIRATORY: Diminished to auscultation bilaterally, CARDIOVASCULAR: Regular S1 S2, no audible murmurs GI: soft, non-tender, normoactive bowel sounds, : No Renal angle tenderness; EXTREMITIES: Erythema involving the right lower extremity, dry ulceration of the base of the plantar surface of the left big toe MUSCULOSKELETAL: No Joint Tenderness; NEURO: Awake; no lateralizing signs. SKIN: Bilateral stasis dermatitis PSYCH; flat affect Assessment & Plan Assessment/Plan (1) Cellulitis of leg: QUALIFIERS: Laterality: left Qualified Code(s): L03.116 - Cellulitis of left lower limb PLAN: Plan Patient is a 50-year-old lady with multiple comorbidities who presented with swelling involving both lower extremities with an area of erythema on the right. Admitted to monitored bed for subsequent management 1. Right lower extremity cellulitis ? In the setting of extensive stasis dermatitis. Patient admitted to a monitored bed antibiotic started per protocol with Vanco and Unasyn consult placed wound care nurse 2. Diabetic foot ulceration ulceration at the base of the left big toe ? Patient is on antibiotic as described above ordered plain x-rays of the left foot consultation placed to podiatry 3. Acute on chronic congestive heart failure with preserved ejection fraction ? Patient most recent echo from 11/12/2024 demonstrated EF of 55%. Patient has been placed on a monitored bed treatment initiated with low-sodium diet, fluid restriction, strict input and output, daily weight as well as furosemide 4. Diabetes mellitus type 2 with complications including peripheral neuropathy ? Held patient oral agents did continue with her home insulin regimen and subsequently placed on Accu-Cheks ACHS with sliding scale coverage 5.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 ? Consistent use of PAP therapy encouraged 6. Hypertension ? Blood pressure controlled, home medications continued with dose adjustment as needed 7. Chronic hypoxic and hypercapnic respiratory failure ? Patient is on baseline oxygen 4 L at rest 8. Depression with anxiety ? Patient is on duloxetine 9. GERD ? On PPI 10. Subclinical hypothyroidism (new diagnosis) ? Patient started on levothyroxine 25 mcg daily 11. Dyslipidemia ?Patient is on statin therapy, continued at home dose 12. Previous history of VTE ? Patient is on systemic anticoagulation with apixaban 13. Anemia ? Secondary to chronic disorder monitoring H&H and transfuse if patient becomes symptomatic or hemoglobin falls below 7 14. Class III obesity with BMI of 67.4 ? Complicating care; Weight loss advised. Patient is on semaglutide as outpatient 15. DVT prophylaxis ? Patient is on Time spent in the patient's overall evaluation,decision-making process, review of diagnostic data, adjustment of management, discussion with other providers, nursing nursing and ancillary staff involved in patient's care documentation, 55 Minutes Charges/Coding Visit Charges Inpatient E&M: 82704 [facility] Hosp L3
[2025-08-17] MEDS: Budesonide Respules 0.5 MG/2 ML AMPUL.NEB. INHALATION ×2 (07:04→19:05)
[2025-08-17] MEDS: APIXABAN 5 MG TABLET PO ×2 (09:22→22:10)
[2025-08-17] MEDS: Metoprolol(XL)Succ 25 MG Tablet PO (09:22)
--- NOTE | 2025-08-17 10:05 | CASEMGMT ---
Addendum entered by Brandy Diallo 08/17/25 14:43: LORENZO GARCÍA received call back from Brandy Burns CM. Brandy states that patient has aides services through [employer] Mon-Fri 5 hours per day, 14 meals per week, and medical alert. Brandy requested discharge paperwork be faxed to [phone]. Original Note: LORENZO GARCÍA Face to Face with patient for initial transition planning/care coordination assessment. LORENZO GARCÍA introduced self and role at [facility]. Patient lying in bed, alert and oriented. Patient willing to participate in assessment and is able to answer all questions appropriately. Care providers, pharmacy, and demographics verified. Strata: 2 PCP: Barbi Specialists: none Preferred Pharmacy: [facility] Insurance: [facility] Dual; [employer] Prescription Benefit: yes Living Will/HPOA: none LNOK: daughter, mother Living Arrangements: Patient lives with her 12 yo grandson, who is currently staying with his mother, who lives next door to patient. Patient lives in a mobile home with 3 steps and railing to enter the home. Patient states she is independent at home. Transportation: daughter DME/HHC: Patient has shower chair, grab bars, rollator, glucometer with supplies, NIV, and home oxygen with POC through [employer] at 5lpm continuously. [facility]. Patient states she has aide services 5 days per week but cannot recall agency. Patient has CM through [facility], Brandy Burns. LORENZO GARCÍA called CM at [phone] and left message with contact information requesting call back. Patient states she is no longer active with [facility] and declines palliative services at this time. Patient wishes to discharge home, denies need for home health at this time. Patient states she has no further needs or concerns at this time. CM to follow for discharge planning needs that may arise. Disposition Plan: Patient to discharge home with resumption of aide services, family support, and follow-up plans in place. Brandy SIMPSON, RN, CM
--- NOTE | 2025-08-17 10:22 | RAD_ITS ---
PROCEDURE: FOOT 2 VIEWS 08/17/2025 REASON FOR EXAM: DFU TECHNIQUE: Procedure Code: RADFO2 Modality: DX Procedure: FOOT 2 VIEWS Laterality: Left foot ulcer. This is worse overlying the great toe. COMPARISON: None FINDINGS: Bones: Calcaneal spurs. No fracture. Joints: Normal alignment. Soft tissues: Diffuse soft tissue swelling. Other: RAD/Foot 2 Views IMPRESSION: Calcaneal spurs. Diffuse soft tissue swelling more prominent overlying the great toe. Reading [facility]
--- NOTE | 2025-08-17 13:36 | CASEMGMT ---
Social Work SW received a VM from RICKY Hicks at [facility]. ELVIN called Brandy Hicks back and left a message. Brandy stated in her message the patient receives aid services Mon-Fri for 5 hours a day, and receives 14 meals a week. She also has medical alert button. KARLOS Reid
--- NOTE | 2025-08-17 14:57 | WOUNDNOTE ---
wound photo: right lower leg
--- NOTE | 2025-08-17 14:58 | WOUNDNOTE ---
wound photo: right lower leg
--- NOTE | 2025-08-17 14:59 | WOUNDNOTE ---
wound photo: right great toe
--- NOTE | 2025-08-17 14:59 | WOUNDNOTE ---
wound photo: left lower leg
--- NOTE | 2025-08-17 15:00 | WOUNDNOTE ---
wound photo: left lower leg
--- NOTE | 2025-08-17 15:01 | WOUNDNOTE ---
wound photo: left great toe
[2025-08-17] MEDS: Albuterol 2.5 MG/3 ML VIAL.NEB. INHALATION (19:05)
[2025-08-17 21:17] LABS: Vancomycin, Trough Level 20.3 ug/mL (5.0-15.0)
--- NOTE | 2025-08-17 21:31 | PCM.RX.CS ---
Consult Antibiotic Management Pharmacy has been consulted to manage selected antibiotic: Vancomycin Type of Intervention Type of Consult: Follow-up Labs Labs: Sodium 135 mmol/L (133-145) 08/17/25 03:34 Potassium 3.9 mmol/L (3.3-5.1) 08/17/25 03:34 Chloride 92 mmol/L (98-108) L 08/17/25 03:34 Carbon Dioxide 28.0 mmol/L (21.0-32.0) 08/17/25 03:34 Anion Gap 15 (5-15) 08/17/25 03:34 BUN 31 mg/dL (4-19) H 08/17/25 03:34 Creatinine 1.03 mg/dL (0.70-1.20) 08/17/25 03:34 Est GFR (MDRD) Non-Af 67 (>60) 08/17/25 03:34 BUN/Creatinine Ratio 29.9 RATIO (10-20) H 08/17/25 03:34 Glucose 383 mg/dL (70-99) H 08/17/25 03:34 Vancomycin Trough 20.3 ug/mL (5.0-15.0) H 08/17/25 20:15 Microbiology Microbiology: Microbiology 08/16/25 18:45 Wound - Leg, Right Gram Stain - Final 08/16/25 18:45 Wound - Right Foot Skin and Soft Tissue MRSA/MSSA (PCR - Final Meth. resistant Staph. aureus Goal Trough Goal Trough: 15-20 mcg/mL Pharmacy Plan for Drug Dosing Pharmacy Plan for Drug Dosing: Pharmacy Service will continue to monitor and adjust dosing as required. TROUGH 20.3 @ 8.5 HOURS. HOLD DOSE AND DRAW RANDOM LEVEL IN 8 HOURS Follow-Up Labs Follow-Up Labs: Trough: Vancomycin Date/Time Labs Ordered Labs to be done on [date and time ordered]: 08/18 @ 1033
[2025-08-17] MEDS: Insulin Glargine-YFGN 100 UNIT/ML Pen 50 UNIT SC (22:12)
[2025-08-18] VITALS (11 sets, daily range): BP systolic 100–151; BP diastolic 66–89; PULSE 71–95; RESP 14–23; TEMP 36.6–36.9; O2SAT 92–97; BMI 67.9
[2025-08-18] MEDS: Ampicillin/Sulbactam 3 GM in 0.9% Normal Saline (100mL MB+) 100 ML IV ×4 (00:16→18:48)
[2025-08-18 04:38] LABS: Hematocrit 29.6 % (37-47); Hemoglobin 9.2 g/dL (12.0-15.0); Immature Granulocytes Count 0.030 X10^3/uL (0.0-0.0); Mean Corp Hgb Conc 31.1 g/dL (32-36); Mean Corpuscular Volume 91.9 fL (81-99); Mean Platelet Vol. 9.9 fl (6.2-12.0); NRBC Flagged by Analyzer 0 % (0-5); Platelet Count 251 K/mm3 (150-450); RBC Distribution Width CV 13.5 % (11.6-14.6); RBC Distribution Width SD 45.6 fl (35.1-43.9); Red Blood Count 3.22 M/mm3 (4.2-5.4); White Blood Count 7.2 K/mm3 (4.4-11.0)
[2025-08-18 05:02] LABS: Vancomycin, Random Level 12.9 ug/mL (0.0-15.0)
[2025-08-18 05:03] LABS: Anion Gap 11 (5-15); BUN 24 mg/dL (4-19); BUN/Creat Ratio 26.4 RATIO (10-20); Calcium,Total 8.3 mg/dL (7.6-11.0); Carbon Dioxide 35.0 mmol/L (21.0-32.0); Chloride 93 mmol/L (98-108); Estimated Creatinine Clearance 127.12 ml/min (50-250); Glucose 288 mg/dL (70-99); Magnesium 1.7 mg/dL (1.5-2.2); Potassium 3.8 mmol/L (3.3-5.1)
[2025-08-18] MEDS: Vancomycin HCl 1,250 MG in 0.9% Normal Saline (250mL Bag) 250 ML 167 MG IV ×3 (05:26→21:06)
--- NOTE | 2025-08-18 06:16 | PCM.RX.CS ---
Consult Antibiotic Management Pharmacy has been consulted to manage selected antibiotic: Vancomycin Type of Intervention Type of Consult: Follow-up Labs Labs: Sodium 139 mmol/L (133-145) 08/18/25 04:20 Potassium 3.8 mmol/L (3.3-5.1) 08/18/25 04:20 Chloride 93 mmol/L (98-108) L 08/18/25 04:20 Carbon Dioxide 35.0 mmol/L (21.0-32.0) H 08/18/25 04:20 Anion Gap 11 (5-15) 08/18/25 04:20 BUN 24 mg/dL (4-19) H 08/18/25 04:20 Creatinine 0.92 mg/dL (0.70-1.20) 08/18/25 04:20 Est GFR (MDRD) Non-Af 76 (>60) 08/18/25 04:20 BUN/Creatinine Ratio 26.4 RATIO (10-20) H 08/18/25 04:20 Glucose 288 mg/dL (70-99) H 08/18/25 04:20 Vancomycin Trough 20.3 ug/mL (5.0-15.0) H 08/17/25 20:15 Random Vancomycin 12.9 ug/mL (0.0-15.0) 08/18/25 04:20 Microbiology Microbiology: Microbiology 08/16/25 18:45 Wound - Leg, Right Gram Stain - Final 08/16/25 18:45 Wound - Right Foot Skin and Soft Tissue MRSA/MSSA (PCR - Final Meth. resistant Staph. aureus Goal Trough Goal Trough: 15-20 mcg/mL Pharmacy Plan for Drug Dosing Pharmacy Plan for Drug Dosing: Pharmacy Service will continue to monitor and adjust dosing as required. RANDOM LEVEL 12.9. START 1250MG Q8H AND DRAW TROUGH PRIOR TO 4TH DOSE Follow-Up Labs Follow-Up Labs: Trough: Vancomycin Date/Time Labs Ordered Labs to be done on [date and time ordered]: 08/19 @ 0500
[2025-08-18] MEDS: Budesonide Respules 0.5 MG/2 ML AMPUL.NEB. INHALATION (07:27)
--- NOTE | 2025-08-18 07:38 | PN.HOSP_ITS ---
Reason for Visit Chief Complaint: Worsening LE edema, orthopnea, dyspnea, RLE stasis blisters with drainage. Subjective Subjective Patient seen. Awaiting evaluation by podiatry.. Patient wound cultures so far positive for Staph aureus as well as possible Enterococcus species awaiting identification and sensitivity Objective Data Objective Data Vital Signs: Vital Signs Temp Pulse Resp BP Pulse Ox O2 Del Method O2 Flow Rate 97.9 F 77 18 102/83 H 95 Nasal Cannula 6 08/18/25 05:08/18/25 05:08/18/25 05:08/18/25 05:31 08/18/25 05:31 08/18/25 05:31 08/18/25 05:31 FiO2 30 08/18/25 03:40 Oxygen Flow Rate (L/min) 6 Oxygen Delivery Method Nasal Cannula Weight: 185 kg Body Mass Index (BMI) 67.9 Intake & Output: Intake and Output for Last 24 Hours 08/16/25 08/17/25 08/18/25 23:59 23:59 23:59 Intake Total 77.5 / 77.5 2754 / 3114 1095 / 1095 Output Total 1100 / 1650 550 / 550 Balance 77.5 / 77.5 1654 / 1464 545 / 545 Lab / Micro Data 08/18/25 04:20 08/18/25 04:20 Labs: Laboratory Results - last 24 hr 08/17/25 11:54: POC Glucose 301 H 08/17/25 16:10: POC Glucose 383 H 08/17/25 20:15: Vancomycin Trough 20.3 H 08/17/25 21:49: POC Glucose 337 H 08/18/25 04:20: WBC 7.2, RBC 3.22 L, Hgb 9.2 L, Hct 29.6 L, MCV 91.9, MCH 28.6, MCHC 31.1 L, RDW Std Deviation 45.6 H, RDW Coeff of Darrion 13.5, Plt Count 251, MPV 9.9, Immature Gran % (Auto) 0.400, Neut % (Auto) 64.0, Lymph % (Auto) 26.4, [place] % (Auto) 5.0, Eos % (Auto) 3.2, Baso % (Auto) 1.0, Absolute Neuts (auto) 4.6, Absolute Lymphs (auto) 1.89, Nucleated RBC % 0, Sodium 139, Potassium 3.8, C hloride 93 L, Carbon Dioxide 35.0 H, Anion Gap 11, BUN 24 H, Creatinine 0.92, Estim Creat Clear Calc 127.12, Est GFR (MDRD) Non-Af 76, BUN/Creatinine Ratio 26.4 H, Glucose 288 H, Calcium 8.3, Phosphorus 3.1, Magnesium 1.7, Random Vancomycin 12.9 Micro: Microbiology 08/16/25 18:45 Wound - Leg, Right Gram Stain - Final 08/16/25 18:45 Wound - Right Foot Skin and Soft Tissue MRSA/MSSA (PCR - Final Meth. resistant Staph. aureus Radiography Diagnostic Testing: Radiology Impression Foot X-Ray 08/17/25 10:22 IMPRESSION: Calcaneal spurs. Diffuse soft tissue swelling more prominent overlying the great toe. Reading Location: [place] [address] Physical Exam Narrative GENERAL: dyspneic at rest HEENT: Atraumatic; moist oral mucosa EYES; Anicteric, Normal Conjunctiva NECK; supple, normal thyroid, no distended JVD. RESPIRATORY: Diminished to auscultation bilaterally, CARDIOVASCULAR: Regular S1 S2, no audible murmurs GI: soft, non-tender, normoactive bowel sounds, : No Renal angle tenderness; EXTREMITIES: Erythema involving the right lower extremity, dry ulceration of the base of the plantar surface of the left big toe MUSCULOSKELETAL: No Joint Tenderness; NEURO: Awake; no lateralizing signs. SKIN: Bilateral stasis dermatitis PSYCH; flat affect Assessment & Plan Assessment/Plan (1) Cellulitis of leg: QUALIFIERS: Laterality: left Qualified Code(s): L03.116 - Cellulitis of left lower limb PLAN: Plan Patient is a 50-year-old lady with multiple comorbidities who presented with swelling involving both lower extremities with an area of erythema on the right. Admitted to monitored bed for subsequent management 1. Right lower extremity cellulitis ? In the setting of extensive stasis dermatitis. Patient admitted to a monitored bed antibiotic started per protocol with Vanco and Unasyn consult placed wound care nurse ? 08/18/2025; patient wound cultures so far positive for Staph aureus as well as possible Enterococcus. Remains on broad-spectrum antibiotic therapy 2. Diabetic foot ulceration ulceration at the base of the left big toe ? Patient is on antibiotic as described above ordered plain x-rays of the left foot consultation placed to podiatry ? 08/18/2025; awaiting podiatry 3. Acute on chronic congestive heart failure with preserved ejection fraction ? Patient most recent echo from 11/12/2024 demonstrated EF of 55%. Patient has been placed on a monitored bed treatment initiated with low-sodium diet, fluid restriction, strict input and output, daily weight as well as furosemide 4. Diabetes mellitus type 2 with complications including peripheral neuropathy ? Held patient oral agents did continue with her home insulin regimen and subsequently placed on Accu-Cheks ACHS with sliding scale coverage 5.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 ? Consistent use of PAP therapy encouraged 6. Hypertension ? Blood pressure controlled, home medications continued with dose adjustment as needed 7. Chronic hypoxic and hypercapnic respiratory failure ? Patient is on baseline oxygen 4 L at rest 8. Depression with anxiety ? Patient is on duloxetine 9. GERD ? On PPI 10. Subclinical hypothyroidism (new diagnosis) ? Patient started on levothyroxine 25 mcg daily 11. Dyslipidemia ?Patient is on statin therapy, continued at home dose 12. Previous history of VTE ? Patient is on systemic anticoagulation with apixaban 13. Anemia ? Secondary to chronic disorder monitoring H&H and transfuse if patient becomes symptomatic or hemoglobin falls below 7 14. Class III obesity with BMI of 67.4 ? Complicating care; Weight loss advised. Patient is on semaglutide as outpatient 15. DVT prophylaxis ? Patient is on Time spent in the patient's overall evaluation,decision-making process, review of diagnostic data, adjustment of management, discussion with other providers, nursing nursing and ancillary staff involved in patient's care documentation, 40 Minutes Charges/Coding Visit Charges Inpatient E&M: 09065 Subs Hosp L2
[2025-08-18] MEDS: Metoprolol(XL)Succ 25 MG Tablet PO (10:46)
[2025-08-18] MEDS: APIXABAN 5 MG TABLET PO ×2 (10:47→21:09)
[2025-08-18] MEDS: Insulin Glargine-YFGN 100 UNIT/ML Pen 50 UNIT SC (10:48)
--- NOTE | 2025-08-18 11:04 | CASEMGMT ---
Social Work SW called the [facility] RICKY Brandy back and left a message. KARLOS Reid
--- NOTE | 2025-08-18 17:48 | PCM.CONS.GEN ---
Assessment & Plan Assessment/Plan (1) Cellulitis of leg: QUALIFIERS: Laterality: left Qualified Code(s): L03.116 - Cellulitis of left lower limb PLAN: cont compressive dressings and antibiotics, follow up in office upon discharge (2) Chronic venous stasis dermatitis: PLAN: same as above (3) Cellulitis and abscess of right leg: PLAN: same as above (4) Sepsis: QUALIFIERS: Sepsis type: sepsis due to unspecified organism Sepsis acute organ dysfunction status: with acute organ dysfunction Severe sepsis acute organ dysfunction type: acute renal failure Acute renal failure type: with acute tubular necrosis Severe sepsis shock status: without septic shock Qualified Code(s): A41.9 - Sepsis, unspecified organism; R65.20 - Severe sepsis without septic shock; N17.0 - Acute kidney failure with tubular necrosis PLAN: same as above (5) Right leg pain: PLAN: same as above (6) Skin ulcer of left great toe, limited to breakdown of skin: PLAN: sharp debridement of wound with 15 blade today bedside, removed nonviable tissue limited to hkt tissue and margins of wound, no tracking. (7) Contusion of right great toe with damage to nail: QUALIFIERS: Encounter type: sequela Qualified Code(s): S90.211S - Contusion of right great toe with damage to nail, sequela PLAN: no tx necessary HPI Consult Data Date of Consult: 08/18/25 HPI Narrative Reason for Consultation: pt states she had increasing swelling in her legs and feet and was admitted HPI Narrative: MACARIO OVERTON, is a 50 F who presents [facility] Medical History (Updated 08/18/25 @ 17:[address] Norman Mcclendon, DPMariam) Cellulitis of leg MRSA cellulitis of left foot Arthritis Non-smoker CHF (congestive heart failure) History of diabetes mellitus Anemia Hypoxia Morbid obesity Venous stasis dermatitis of both lower extremities BMI 60.0-69.9, adult Noncompliance with CPAP treatment Acute on chronic respiratory failure with hypoxia and hypercapnia Perianal abscess Type 2 diabetes mellitus with hyperglycemia Contusion of knee, right Chronic diastolic (congestive) heart failure Depression Diabetes GERD (gastroesophageal reflux disease) BiPAP (biphasic positive airway pressure) dependence Sleep apnea On home oxygen therapy Smoker COPD (chronic obstructive pulmonary disease) Hypertension Congestive heart failure KERRY (acute kidney injury) Chronic respiratory failure with hypoxia Opiate overdose History of left heart catheterization (LHC) (~01/05/19) Type 2 diabetes mellitus Old myocardial infarction Essential hypertension Restrictive lung disease secondary to obesity Dyspnea on exertion Pulmonary embolism Hidradenitis Non-healing open wound of left groin Open wound of vulva with complication Necrotizing soft tissue infection Abscess of vulva Soft tissue abscess of inguinal region Respiratory failure with hypoxia Abscess Hyperglycemia due to type 2 diabetes mellitus NSTEMI (non-ST elevated myocardial infarction) Tobacco abuse Hyperlipidemia Morbid obesity History of MRSA infection Anxiety 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 Home Medications ?Medication ?Instructions ?Recorded ?Last Taken ?Type multivit-iron 18 mg-folic acid 400 1 ea PO DAILY supplement 03/26/17 07/14/23 History mcg-calcium 500 mg-minerals tablet omeprazole 40 mg capsule,delayed 40 mg PO DAILY GERD 12/15/18 07/14/23 History release loratadine 10 mg tablet 10 mg PO DAILY PRN Allergies 03/01/20 07/14/23 History apixaban 5 mg tablet 5 mg PO BID blood thinner 08/20/20 07/14/23 History diltiazem HCl 120 mg 120 mg PO DAILY heart rate 08/20/20 07/14/23 History capsule,extended release 24 hr lisinopril 10 mg tablet 10 mg PO DAILY blood pressure 03/26/21 07/14/23 History metformin 500 mg tablet,extended 1,000 mg PO DAILY diabetes 03/26/21 07/14/23 History release 24 hr metoprolol succinate 25 mg 25 mg PO DAILY blood pressure 03/26/21 07/14/23 History tablet,extended release 24 hr atorvastatin 80 mg tablet 80 mg PO QHS cholesterol 02/07/22 07/14/23 History furosemide 40 mg tablet 80 mg PO DAILY diuretic 09/22/22 07/14/23 History albuterol sulfate 2.5 mg/3 mL 2.5 mg inhalation Q4H PRN SOB 12/09/22 07/10/23 History (0.083 %) solution for nebulization fenofibrate nanocrystallized 145 145 mg PO DAILY CHOLESTEROL 12/09/22 07/14/23 History mg tablet insulin glargine U-300 conc 300 104 unit subcut BID diabetes 07/14/23 07/13/23 History unit/mL (3 mL) subcutaneous pen (Toujeo Max U-300 SoloStar) semaglutide 1 mg/dose (4 mg/3 mL) 1 mg subcut .1XW diabetes 07/14/23 07/13/23 History subcutaneous pen injector (Ozempic) metolazone 2.5 mg tablet 2.5 mg PO .every /thurs #8 tabs 07/15/23 Unknown Rx oxycodone-acetaminophen 5 mg-325 1 tab PO Q6H PRN pain 3 days #12 01/15/24 Unknown Rx mg tablet (Percocet) tabs potassium chloride 20 mEq See Rx Instructions .Route 08/05/24 Unknown Rx tablet,extended release(part/cryst) .COMPLEX #60 TABLETS duloxetine 60 mg capsule,delayed 60 mg PO DAILY 11/09/24 Unknown History release ergocalciferol (vitamin D2) 1,250 1,250 mcg PO QWEEK 11/09/24 Unknown History mcg (50,000 unit) capsule (Vitamin D2) ferrous sulfate 325 mg (65 mg 325 mg PO DAILY 11/09/24 Unknown History iron) tablet (FeroSul) lorazepam 1 mg tablet 1 mg PO TID 11/09/24 Unknown History cephalexin 500 mg capsule 500 mg PO TID #14 caps 11/12/24 Unknown Rx doxycycline monohydrate 100 mg 100 mg PO BID 5 days #10 caps 11/12/24 Unknown Rx capsule methocarbamol 750 mg tablet 1,500 mg PO TID muscle spasm 08/16/25 Unknown History oxycodone 15 mg tablet 15 mg PO Q6H PRN PRN pain 08/16/25 Unknown History pregabalin 150 mg capsule 150 mg PO TID 08/16/25 Unknown History semaglutide 2 mg/dose (8 mg/3 mL) mg subcut 08/16/25 Unknown History subcutaneous pen injector (Ozempic) Allergy/AdvReac Type Severity Reaction Status Date / Time cyclobenzaprine HCl (From Allergy Hives Verified 08/16/25 18:21 Flexeril) venlafaxine (From Effexor) AdvReac Severe hives Verified 08/16/25 18:21 Family History Father CVA (cerebral vascular accident) Heart disease Diabetes Mother Thyroid disorder Surgical History History of delivery H/O arthroscopic knee surgery History of cholecystectomy Social History (Updated 08/16/25 @ 21:[address] Olamide Mas MD) household members: none Smoking Status: Former smoker how long ago did patient quit smokin PPD smoker, quit x 1 year approximately. second hand exposure: Yes alcohol intake: never substance use type: does not use caffeine: Yes Type: carbonated beverages Number of servings: 1 and coffee Number of servings: 1 Physical Exam Narrative evaluate both feet. had a nail fall off on right and a wound develop on the left great toe. had increasing swelling in legs and was admitted to hosp. culture identified MRSA. pt currently on IVABx Const alert, oriented x3 and no apparent distress General Appearance: cooperative Lymph Lymphatic Narrative: no popliteal lymphadenopathy Extremity normal capillary refill, no clubbing, cyanosis or edema and no calf tenderness Skin Skin Narrative: right great toe with absent nail. nail bed is clean and dry, no wounds. no redness, no swelling, no drainage, \ left great toed with 1.5cm round neuropathic wound with undermining hkt edges, no tracking, no redness, no drainage, no swelling Wounds: wounds noted size Size: 1.5cm round left great toe, bed granulating well, drainage other none and no odor Lab / Micro Data 08/18/25 04:20 08/18/25 04:20 Labs: Laboratory Results - last 24 hr 08/17/25 20:15: Vancomycin Trough 20.3 H 08/17/25 21:49: POC Glucose 337 H 08/18/25 04:20: WBC 7.2, RBC 3.22 L, Hgb 9.2 L, Hct 29.6 L, MCV 91.9, MCH 28.6, MCHC 31.1 L, RDW Std Deviation 45.6 H, RDW Coeff of Darrion 13.5, Plt Count 251, MPV 9.9, Immature Gran % (Auto) 0.400, Neut % (Auto) 64.0, Lymph % (Auto) 26.4, [place] % (Auto) 5.0, Eos % (Auto) 3.2, Baso % (Auto) 1.0, Absolute Neuts (auto) 4.6, Absolute Lymphs (auto) 1.89, Nucleated RBC % 0, Sodium 139, Potassium 3.8, Chloride 93 L, Carbon Dioxide 35.0 H, Anion Gap 11, BUN 24 H, Creatinine 0.92, Estim Creat Clear Calc 127.12, Est GFR (MDRD) Non-Af 76, BUN/Creatinine Ratio 26.4 H, Glucose 288 H, Calcium 8.3, Phosphorus 3.1, Magnesium 1.7, Random Vancomycin 12.9 08/18/25 07:52: POC Glucose 279 H 08/18/25 11:54: POC Glucose 341 H 08/18/25 14:56: POC Glucose 456 H* 08/18/25 16:33: POC Glucose 460 H* Micro: Microbiology 08/16/25 18:45 Wound - Leg, Right Gram Stain - Final 08/16/25 18:45 Wound - Leg, Right Wound Culture - Preliminary Staphylococcus aureus GPC Poss Enterococcus sp Alpha Hemolytic Streptococcus
[2025-08-18] MEDS: 0.9% Saline Lock 10 ML Syringe IV (18:49)
[2025-08-18] MEDS: Insulin Glargine-YFGN 100 UNIT/ML Pen 75 UNIT SC (21:16)
[2025-08-19] MEDS: Ampicillin/Sulbactam 3 GM in 0.9% Normal Saline (100mL MB+) 100 ML IV ×3 (00:05→13:32)
[2025-08-19 01:05] VITALS: PULSE 72; RESP 14; RESP 16; O2SAT 95
[2025-08-19 03:25] VITALS: BP 130/64; PULSE 74; RESP 18; TEMP 36.5; O2SAT 94
[2025-08-19 03:30] VITALS: RESP 14
[2025-08-19 05:05] LABS: Hematocrit 32.7 % (37-47); Hemoglobin 10.2 g/dL (12.0-15.0); Immature Granulocytes Count 0.080 X10^3/uL (0.0-0.0); Mean Corp Hgb Conc 31.2 g/dL (32-36); Mean Corpuscular Volume 90.8 fL (81-99); Mean Platelet Vol. 10.0 fl (6.2-12.0); NRBC Flagged by Analyzer 0 % (0-5); Platelet Count 277 K/mm3 (150-450); RBC Distribution Width CV 13.2 % (11.6-14.6); RBC Distribution Width SD 43.4 fl (35.1-43.9); Red Blood Count 3.60 M/mm3 (4.2-5.4); White Blood Count 7.7 K/mm3 (4.4-11.0)
[2025-08-19 05:43] LABS: Anion Gap 10 (5-15); BUN 25 mg/dL (4-19); BUN/Creat Ratio 26.4 RATIO (10-20); Calcium,Total 9.5 mg/dL (7.6-11.0); Carbon Dioxide 35.7 mmol/L (21.0-32.0); Chloride 89 mmol/L (98-108); Estimated Creatinine Clearance 126.36 ml/min (50-250); Glucose 397 mg/dL (70-99); Potassium 4.0 mmol/L (3.3-5.1)
[2025-08-19 05:45] LABS: Vancomycin, Trough Level 19.6 ug/mL (5.0-15.0)
[2025-08-19 06:00] VITALS: BMI 66.7
[2025-08-19] MEDS: Vancomycin HCl 1,000 MG in 0.9% Normal Saline (250mL Bag) 250 ML 250 MG IV (06:10)
--- NOTE | 2025-08-19 06:11 | PCM.RX.CS ---
Consult Antibiotic Management Pharmacy has been consulted to manage selected antibiotic: Vancomycin Type of Intervention Type of Consult: Follow-up Labs Labs: Sodium 135 mmol/L (133-145) 08/19/25 04:57 Potassium 4.0 mmol/L (3.3-5.1) 08/19/25 04:57 Chloride 89 mmol/L (98-108) L 08/19/25 04:57 Carbon Dioxide 35.7 mmol/L (21.0-32.0) H 08/19/25 04:57 Anion Gap 10 (5-15) 08/19/25 04:57 BUN 25 mg/dL (4-19) H 08/19/25 04:57 Creatinine 0.93 mg/dL (0.70-1.20) 08/19/25 04:57 Est GFR (MDRD) Non-Af 76 (>60) 08/19/25 04:57 BUN/Creatinine Ratio 26.4 RATIO (10-20) H 08/19/25 04:57 Glucose 397 mg/dL (70-99) H 08/19/25 04:57 Vancomycin Trough 19.6 ug/mL (5.0-15.0) H 08/19/25 04:57 Random Vancomycin 12.9 ug/mL (0.0-15.0) 08/18/25 04:20 Microbiology Microbiology: Microbiology 08/16/25 18:45 Wound - Leg, Right Gram Stain - Final 08/16/25 18:45 Wound - Leg, Right Wound Culture - Preliminary Staphylococcus aureus GPC Poss Enterococcus sp Alpha Hemolytic Streptococcus 08/16/25 18:45 Wound - Right Foot Skin and Soft Tissue MRSA/MSSA (PCR - Final Meth. resistant Staph. aureus Goal Trough Goal Trough: 15-20 mcg/mL Pharmacy Plan for Drug Dosing Pharmacy Plan for Drug Dosing: Pharmacy Service will continue to monitor and adjust dosing as required. TROUGH 19.6 @ 8 HOURS. DECREASE TO 1000MG Q8H AND DRAW TROUGTH PRIOR TO 4TH DOSE Follow-Up Labs Follow-Up Labs: Trough: Vancomycin Date/Time Labs Ordered Labs to be done on [date and time ordered]: 08/20 @ 8347
[2025-08-19] MEDS: Budesonide Respules 0.5 MG/2 ML AMPUL.NEB. INHALATION (07:38)
[2025-08-19] MEDS: Albuterol 2.5 MG/3 ML VIAL.NEB. INHALATION (07:38)
--- NOTE | 2025-08-19 07:50 | PCM.PN.HOSP ---
Reason for Visit Chief Complaint: Worsening LE edema, orthopnea, dyspnea, RLE stasis blisters with drainage. Subjective Subjective Patient wound cultures came back positive for MRSA and 2 strep species. Patient was also seen in consultation by podiatry underwent sharp debridement of wound bedside. Plan is for patient to follow-up with podiatry as outpatient. Consult placed to ID Objective Data Objective Data Vital Signs: Vital Signs Temp Pulse Resp BP Pulse Ox O2 Del Method O2 Flow Rate 97.7 F L 74 18 130/64 H 94 Nasal Cannula 5 08/19/25 03:25 08/19/25 03:25 08/19/25 03:25 08/19/25 03:25 08/19/25 03:25 08/19/25 03:25 08/19/25 03:25 FiO2 30 08/19/25 03:30 Oxygen Flow Rate (L/min) 5 Oxygen Delivery Method Nasal Cannula Weight: 181.7 kg Body Mass Index (BMI) 66.7 Intake & Output: Intake and Output for Last 24 Hours 08/17/25 08/18/25 08/19/25 23:59 23:59 23:59 Intake Total 2754 / 3114 2445 / 2445 470 / 470 Output Total 1100 / 1650 3700 / 3700 800 / 800 Balance 1654 / 1464 -1255 / -1255 -330 / -330 Lab / Micro Data 08/19/25 04:57 08/19/25 04:57 Labs: Laboratory Results - last 24 hr 08/18/25 07:52: POC Glucose 279 H 08/18/25 11:54: POC Glucose 341 H 08/18/25 14:56: POC Glucose 456 H* 08/18/25 16:33: POC Glucose 460 H* 08/18/25 21:04: POC Glucose 458 H* 08/19/25 04:57: WBC 7.7, RBC 3.60 L, Hgb 10.2 L, Hct 32.7 L, MCV 90.8, MCH 28.3, MCHC 31.2 L, RDW Std Deviation 43.4, RDW Coeff of [place]arrion 13.2, Plt Count 277, MPV 10.0, Immature Gran % (Auto) 1.000 H, Neut % (Auto) 63.3, Lymph % (Auto) 25.6, [place] % (Auto) 6.0, Eos % (Auto) 3.2, Baso % (Auto) 0.9, Absolute Neuts (auto) 4.9, Absolute Lymphs (auto) 1.98, Nucleated RBC % 0, Sodium 135, Potassium 4.0, Chloride 89 L, Carbon Dioxide 35.7 H, Anion Gap 10, BUN 25 H, Creatinine 0.93, Estim Creat Clear Calc 126.36, Est GFR (MDRD) Non-Af 76, BUN/Creatinine Ratio 26.4 H, Glucose 397 H, Calcium 9.5, Vancomycin Trough 19.6 H Micro: Microbiology 08/16/25 19:30 Blood Culture (Wb) - Left Hand Blood Culture - Preliminary No growth in 48 hours. 08/16/25 19:55 Blood Culture (Wb) - Right Hand Blood Culture - Preliminary No growth in 48 hours. 08/16/25 18:45 Wound - Leg, Right Gram Stain - Final 08/16/25 18:45 Wound - Leg, Right Wound Culture - Preliminary Staphylococcus aureus GPC Poss Enterococcus sp Alpha Hemolytic Streptococcus 08/16/25 18:45 Wound - Right Foot Skin and Soft Tissue MRSA/MSSA (PCR - Final Meth. resistant Staph. aureus Physical Exam Narrative GENERAL: dyspneic at rest HEENT: Atraumatic; moist oral mucosa EYES; Anicteric, Normal Conjunctiva NECK; supple, normal thyroid, no distended JVD. RESPIRATORY: Diminished to auscultation bilaterally, CARDIOVASCULAR: Regular S1 S2, no audible murmurs GI: soft, non-tender, normoactive bowel sounds, : No Renal angle tenderness; EXTREMITIES: Erythema involving the right lower extremity, dry ulceration of the base of the plantar surface of the left big toe MUSCULOSKELETAL: No Joint Tenderness; NEURO: Awake; no lateralizing signs. SKIN: Bilateral stasis dermatitis PSYCH; flat affect Assessment & Plan Assessment/Plan (1) Cellulitis of leg: QUALIFIERS: Laterality: left Qualified Code(s): L03.116 - Cellulitis of left lower limb PLAN: Plan Patient is a 50-year-old lady with multiple comorbidities who presented with swelling involving both lower extremities with an area of erythema on the right. Admitted to monitored bed for subsequent management 1. Right lower extremity cellulitis ? In the setting of extensive stasis dermatitis. Patient admitted to a monitored bed antibiotic started per protocol with Vanco and Unasyn consult placed wound care nurse ? 08/18/2025; patient wound cultures so far positive for Staph aureus as well as possible Enterococcus. Remains on broad-spectrum antibiotic therapy ? 08/19/2025;Patient wound cultures came back positive for MRSA and 2 strep species. Patient was also seen in consultation by podiatry underwent sharp debridement of wound bedside. Plan is for patient to follow-up with podiatry as outpatient. Consult placed to ID 2. Diabetic foot ulceration ulceration at the base of the left big toe ? Patient is on antibiotic as described above ordered plain x-rays of the left foot consultation placed to podiatry ? 08/18/2025; awaiting podiatry 3. Acute on chronic congestive heart failure with preserved ejection fraction ? Patient most recent echo from 11/12/2024 demonstrated EF of 55%. Patient has been placed on a monitored bed treatment initiated with low-sodium diet, fluid restriction, strict input and output, daily weight as well as furosemide 4. Diabetes mellitus type 2 with complications including peripheral neuropathy ? Held patient oral agents did continue with her home insulin regimen and subsequently placed on Accu-Cheks ACHS with sliding scale coverage 5.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 ? Consistent use of PAP therapy encouraged 6. Hypertension ? Blood pressure controlled, home medications continued with dose adjustment as needed 7. Chronic hypoxic and hypercapnic respiratory failure ? Patient is on baseline oxygen 4 L at rest 8. Depression with anxiety ? Patient is on duloxetine 9. GERD ? On PPI 10. Subclinical hypothyroidism (new diagnosis) ? Patient started on levothyroxine 25 mcg daily 11. Dyslipidemia ?Patient is on statin therapy, continued at home dose 12. Previous history of VTE ? Patient is on systemic anticoagulation with apixaban 13. Anemia ? Secondary to chronic disorder monitoring H&H and transfuse if patient becomes symptomatic or hemoglobin falls below 7 14. Class III obesity with BMI of 67.4 ? Complicating care; Weight loss advised. Patient is on semaglutide as outpatient 15. DVT prophylaxis ? Patient is on Time spent in the patient's overall evaluation,decision-making process, review of diagnostic data, adjustment of management, discussion with other providers, nursing nursing and ancillary staff involved in patient's care documentation, 35 Minutes
[2025-08-19 08:15] VITALS: PULSE 79; RESP 16; O2SAT 96
[2025-08-19] MEDS: Insulin Glargine-YFGN 100 UNIT/ML Pen 75 UNIT SC (08:30)
[2025-08-19 10:43] VITALS: PULSE 74
[2025-08-19] MEDS: APIXABAN 5 MG TABLET PO (10:43)
[2025-08-19] MEDS: Metoprolol(XL)Succ 25 MG Tablet PO (10:43)
[2025-08-19] MEDS: 0.9% Saline Lock 10 ML Syringe IV ×2 (10:44→13:36)
[2025-08-19 10:45] VITALS: BP 150/76; PULSE 91; RESP 20; TEMP 36.6; O2SAT 97
--- NOTE | 2025-08-19 10:56 | PCM.CONS.GEN ---
Assessment & Plan Assessment/Plan (1) Skin ulcer of left great toe, limited to breakdown of skin: (2) Cellulitis of leg: QUALIFIERS: Laterality: left Qualified Code(s): L03.116 - Cellulitis of left lower limb PLAN: BLE cellulitis with L 1st toe wound. Wound cx with MRSA and strep x2. On vanc/unasyn. Plan on 7 more days po doxy 100mg bid and augmentin 875mg bid at discharge with podiatry followup. Leg wraps, diuresis, glucose control, and wound care will help prevent recurrence of infection. Will follow, thank you (3) Type 2 diabetes mellitus with hyperglycemia: (4) Chronic venous stasis dermatitis: HPI Consult Data Date of Consult: 08/19/25 HPI Narrative Reason for Consultation: cellulitis HPI Narrative: MACARIO OVERTON, is a 50 F with h/o CKD, COPD, DM, neuropathy, presented 08/16 to ED with about a week progressive BLE swelling, redness, pain, drainage. Has worsening wound on L toe. Had associated fever and chills. Admitted here, now on vanc/unasyn, feeling better, pain improved. Full ROS performed and neg except as noted above. [facility] Medical History Cellulitis of leg MRSA cellulitis of left foot Arthritis Non-smoker CHF (congestive heart failure) History of diabetes mellitus Anemia Hypoxia Morbid obesity Venous stasis dermatitis of both lower extremities BMI 60.0-69.9, adult Noncompliance with CPAP treatment Acute on chronic respiratory failure with hypoxia and hypercapnia Perianal abscess Type 2 diabetes mellitus with hyperglycemia Contusion of knee, right Chronic diastolic (congestive) heart failure Depression Diabetes GERD (gastroesophageal reflux disease) BiPAP (biphasic positive airway pressure) dependence Sleep apnea On home oxygen therapy Smoker COPD (chronic obstructive pulmonary disease) Hypertension Congestive heart failure KERRY (acute kidney injury) Chronic respiratory failure with hypoxia Opiate overdose History of left heart catheterization (LHC) (~01/05/19) Type 2 diabetes mellitus Old myocardial infarction Essential hypertension Restrictive lung disease secondary to obesity Dyspnea on exertion Pulmonary embolism Hidradenitis Non-healing open wound of left groin Open wound of vulva with complication Necrotizing soft tissue infection Abscess of vulva Soft tissue abscess of inguinal region Respiratory failure with hypoxia Abscess Hyperglycemia due to type 2 diabetes mellitus NSTEMI (non-ST elevated myocardial infarction) Tobacco abuse Hyperlipidemia Morbid obesity History of MRSA infection Anxiety 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 Home Medications ?Medication ?Instructions ?Recorded ?Last Taken ?Type multivit-iron 18 mg-folic acid 400 1 ea PO DAILY supplement 03/26/17 07/14/23 History mcg-calcium 500 mg-minerals tablet omeprazole 40 mg capsule,delayed 40 mg PO DAILY GERD 12/15/18 07/14/23 History release loratadine 10 mg tablet 10 mg PO DAILY PRN Allergies 03/01/20 07/14/23 History apixaban 5 mg tablet 5 mg PO BID blood thinner 08/20/20 07/14/23 History diltiazem HCl 120 mg 120 mg PO DAILY heart rate 08/20/20 07/14/23 History capsule,extended release 24 hr lisinopril 10 mg tablet 10 mg PO DAILY blood pressure 03/26/21 07/14/23 History metformin 500 mg tablet,extended 1,000 mg PO DAILY diabetes 03/26/21 07/14/23 History release 24 hr metoprolol succinate 25 mg 25 mg PO DAILY blood pressure 03/26/21 07/14/23 History tablet,extended release 24 hr atorvastatin 80 mg tablet 80 mg PO QHS cholesterol 02/07/22 07/14/23 History furosemide 40 mg tablet 80 mg PO DAILY diuretic 09/22/22 07/14/23 History albuterol sulfate 2.5 mg/3 mL 2.5 mg inhalation Q4H PRN SOB 12/09/22 07/10/23 History (0.083 %) solution for nebulization fenofibrate nanocrystallized 145 145 mg PO DAILY CHOLESTEROL 12/09/22 07/14/23 History mg tablet insulin glargine U-300 conc 300 104 unit subcut BID diabetes 07/14/23 07/13/23 History unit/mL (3 mL) subcutaneous pen (Toujeo Max U-300 SoloStar) semaglutide 1 mg/dose (4 mg/3 mL) 1 mg subcut .1XW diabetes 07/14/23 07/13/23 History subcutaneous pen injector (Ozempic) metolazone 2.5 mg tablet 2.5 mg PO .every tu/thurs #8 tabs 07/15/23 Unknown Rx oxycodone-acetaminophen 5 mg-325 1 tab PO Q6H PRN pain 3 days #12 01/15/24 Unknown Rx mg tablet (Percocet) tabs potassium chloride 20 mEq See Rx Instructions .Route 08/05/24 Unknown Rx tablet,extended release(part/cryst) .COMPLEX #60 TABLETS duloxetine 60 mg capsule,delayed 60 mg PO DAILY 11/09/24 Unknown History release ergocalciferol (vitamin D2) 1,250 1,250 mcg PO QWEEK 11/09/24 Unknown History mcg (50,000 unit) capsule (Vitamin D2) ferrous sulfate 325 mg (65 mg 325 mg PO DAILY 11/09/24 Unknown History iron) tablet (FeroSul) lorazepam 1 mg tablet 1 mg PO TID 11/09/24 Unknown History cephalexin 500 mg capsule 500 mg PO TID #14 caps 11/12/24 Unknown Rx doxycycline monohydrate 100 mg 100 mg PO BID 5 days #10 caps 11/12/24 Unknown Rx capsule methocarbamol 750 mg tablet 1,500 mg PO TID muscle spasm 08/16/25 Unknown History oxycodone 15 mg tablet 15 mg PO Q6H PRN PRN pain 08/16/25 Unknown History pregabalin 150 mg capsule 150 mg PO TID 08/16/25 Unknown History semaglutide 2 mg/dose (8 mg/3 mL) mg subcut 08/16/25 Unknown History subcutaneous pen injector (Ozempic) Allergy/AdvReac Type Severity Reaction Status Date / Time cyclobenzaprine HCl (From Allergy Hives Verified 08/16/25 18:21 Flexeril) venlafaxine (From Effexor) AdvReac Severe hives Verified 08/16/25 18:21 Family History Father CVA (cerebral vascular accident) Heart disease Diabetes Mother Thyroid disorder Surgical History History of delivery H/O arthroscopic knee surgery History of cholecystectomy Social History (Updated 08/16/25 @ 21:[address] Olamide Mas MD) household members: none Smoking Status: Former smoker how long ago did patient quit smokin PPD smoker, quit x 1 year approximately. second hand exposure: Yes alcohol intake: never substance use type: does not use caffeine: Yes Type: carbonated beverages Number of servings: 1 and coffee Number of servings: 1 Physical Exam Const alert, oriented x3 and no apparent distress General Appearance: cooperative HEENT normocephalic and head/scalp atraumatic Eyes PERRL and EOMs intact bilaterally Neck supple and No nodes Resp normal air movement and clear to auscultation bilaterally Cardio regular rate and regular rhythm GI soft to palpation, non-tender and non-distended Extremity General Extremity: edema Skin Skin Narrative: reviewed wound photos Neuro CN's II-XII intact bilaterally Lab / Micro Data Attestation: I reviewed the patient's lab results. 08/19/25 04:57 08/19/25 04:57 Labs: Laboratory Results - last 24 hr 08/18/25 11:54: POC Glucose 341 H 08/18/25 14:56: POC Glucose 456 H* 08/18/25 16:33: POC Glucose 460 H* 08/18/25 21:04: POC Glucose 458 H* 08/19/25 04:57: WBC 7.7, RBC 3.60 L, Hgb 10.2 L, Hct 32.7 L, MCV 90.8, MCH 28.3, MCHC 31.2 L, RDW Std Deviation 43.4, RDW Coeff of [place] 13.2, Plt Count 277, MPV 10.0, Immature Gran % (Auto) 1.000 H, Neut % (Auto) 63.3, Lymph % (Auto) 25.6, [place] % (Auto) 6.0, Eos % (Auto) 3.2, Baso % (Auto) 0.9, Absolute Neuts (auto) 4.9, Absolute Lymphs (auto) 1.98, Nucleated RBC % 0, Sodium 135, Potassium 4.0, Chloride 89 L, Carbon Dioxide 35.7 H, Anion Gap 10, BUN 25 H, Creatinine 0.93, Estim Creat Clear Calc 126.36, Est GFR (MDRD) Non-Af 76, BUN/Creatinine Ratio 26.4 H, Glucose 397 H, Calcium 9.5, Vancomycin Trough 19.6 H 08/19/25 08:01: POC Glucose 393 H Micro: Microbiology 08/16/25 18:45 Wound - Leg, Right Gram Stain - Final 08/16/25 18:45 Wound - Leg, Right Wound Culture - Preliminary Meth. resistant Staph. aureus Streptococcus thoraltensis Streptococcus mitis/ oralis 08/16/25 19:30 Blood Culture (Wb) - Left Hand Blood Culture - Preliminary No growth in 48 hours. 08/16/25 19:55 Blood Culture (Wb) - Right Hand Blood Culture - Preliminary No growth in 48 hours.
--- NOTE | 2025-08-19 11:50 | PCM.DC.SUM ---
Providers Date of Admission: 08/16/25 Primary Care Physician: Delmy Landon MD Consultations 08/16/25 22:51 Consult: Onc/Wound/associate medical director Routine Comment: Reason for Consult:: BL LE stasis wounds. 08/17/25 08:22 Consult: Podiatry Routine Consulting Provider: Norman Mcclendon Reason for Consult: Diabetic foot ulcers EMERGENT Consult: No Notified: Yes Date Notified: 08/17/25 Time Notified: 11:42 Method of Notification: Verbal 08/19/25 09:53 Consult: Infectious Disease Routine Consulting Provider: Alec Gonzalez Reason for Consult: CELLULITIS EMERGENT Consult: No Notified: Yes Date Notified: 08/19/25 Time Notified: 09:53 Method of Notification: Verbal Reason For Visit: RLE CELLUTIS/STASIS WOUNDS, ? HF EXAC Diagnosis Discharge Diagnosis (1) Skin ulcer of left great toe, limited to breakdown of skin: Status: Acute Code(s): L97.521 - Non-pressure chronic ulcer of other part of left foot limited to breakdown of skin (2) Cellulitis of leg: Status: Acute Code(s): L03.119 - Cellulitis of unspecified part of limb Qualifiers: Laterality: left Qualified Code(s): L03.116 - Cellulitis of left lower limb (3) Type 2 diabetes mellitus with hyperglycemia: Status: Acute Code(s): E11.65 - Type 2 diabetes mellitus with hyperglycemia (4) Chronic venous stasis dermatitis: Status: Chronic Code(s): I87.2 - Venous insufficiency (chronic) (peripheral) Plan Patient is a 50-year-old lady with multiple comorbidities who presented with swelling involving both lower extremities with an area of erythema on the right. Admitted to monitored bed for subsequent management 1. Right lower extremity cellulitis ? In the setting of extensive stasis dermatitis. Patient admitted to a monitored bed antibiotic started per protocol with Vanco and Unasyn consult placed wound care nurse ? 08/18/2025; patient wound cultures so far positive for Staph aureus as well as possible Enterococcus. Remains on broad-spectrum antibiotic therapy ? 08/19/2025;Patient wound cultures came back positive for MRSA and 2 strep species. Patient was also seen in consultation by podiatry underwent sharp debridement of wound bedside. Plan is for patient to follow-up with podiatry as outpatient. Consult placed to ID. ID recommended for patient to be discharged home on 7 more days po doxy 100mg bid and augmentin 875mg bid at discharge with podiatry followup 2. Diabetic foot ulceration ulceration at the base of the left big toe ? Patient is on antibiotic as described above ordered plain x-rays of the left foot consultation placed to podiatry ? 08/18/2025; awaiting podiatry 3. Acute on chronic congestive heart failure with preserved ejection fraction ? Patient most recent echo from 11/12/2024 demonstrated EF of 55%. Patient has been placed on a monitored bed treatment initiated with low-sodium diet, fluid restriction, strict input and output, daily weight as well as furosemide 4. Diabetes mellitus type 2 with complications including peripheral neuropathy ? Held patient oral agents did continue with her home insulin regimen and subsequently placed on Accu-Cheks ACHS with sliding scale coverage 5.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 ? Consistent use of PAP therapy encouraged 6. Hypertension ? Blood pressure controlled, home medications continued with dose adjustment as needed 7. Chronic hypoxic and hypercapnic respiratory failure ? Patient is on baseline oxygen 4 L at rest 8. Depression with anxiety ? Patient is on duloxetine 9. GERD ? On PPI 10. Subclinical hypothyroidism (new diagnosis) ? Patient started on levothyroxine 25 mcg daily 11. Dyslipidemia ?Patient is on statin therapy, continued at home dose 12. Previous history of VTE ? Patient is on systemic anticoagulation with apixaban 13. Anemia ? Secondary to chronic disorder monitoring H&H and transfuse if patient becomes symptomatic or hemoglobin falls below 7 14. Class III obesity with BMI of 67.4 ? Complicating care; Weight loss advised. Patient is on semaglutide as outpatient 15. DVT prophylaxis ? Patient is on Time spent in the patient's overall evaluation,decision-making process, review of diagnostic data, adjustment of management, discussion with other providers, nursing nursing and ancillary staff involved in patient's care documentation, 35 Minutes Medications at Discharge Home Medications multivit-iron 18 mg-folic acid 400 mcg-calcium 500 mg-minerals tablet 1 ea PO DAILY supplement 03/26/17 omeprazole 40 mg capsule,delayed release 40 mg PO DAILY GERD 12/15/18 loratadine 10 mg tablet 10 mg PO DAILY PRN Allergies 03/01/20 apixaban 5 mg tablet 5 mg PO BID blood thinner 08/20/20 diltiazem HCl 120 mg capsule,extended release 24 hr 120 mg PO DAILY heart rate 08/20/20 lisinopril 10 mg tablet 10 mg PO DAILY blood pressure 03/26/21 metformin 500 mg tablet,extended release 24 hr 1,000 mg PO DAILY diabetes 03/26/21 metoprolol succinate 25 mg tablet,extended release 24 hr 25 mg PO DAILY blood pressure 03/26/21 atorvastatin 80 mg tablet 80 mg PO QHS cholesterol 02/07/22 furosemide 40 mg tablet 80 mg PO DAILY diuretic 09/22/22 albuterol sulfate 2.5 mg/3 mL (0.083 %) solution for nebulization 2.5 mg inhalation Q4H PRN SOB 12/09/22 fenofibrate nanocrystallized 145 mg tablet 145 mg PO DAILY CHOLESTEROL 12/09/22 insulin glargine U-300 conc 300 unit/mL (3 mL) subcutaneous pen (Toujeo Max U-300 SoloStar) 104 unit subcut BID diabetes 07/14/23 semaglutide 1 mg/dose (4 mg/3 mL) subcutaneous pen injector (Ozempic) 1 mg subcut .1XW diabetes 07/14/23 metolazone 2.5 mg tablet 2.5 mg PO .every /th #8 tabs 07/15/23 oxycodone-acetaminophen 5 mg-325 mg tablet (Percocet) 1 tab PO Q6H PRN pain 3 days #12 tabs 01/15/24 potassium chloride 20 mEq tablet,extended release(part/cryst) See Rx Instructions .Route .COMPLEX #60 TABLETS 08/05/24 duloxetine 60 mg capsule,delayed release 60 mg PO DAILY 11/09/24 ergocalciferol (vitamin D2) 1,250 mcg (50,000 unit) capsule (Vitamin D2) 1,250 mcg PO QWEEK 11/09/24 ferrous sulfate 325 mg (65 mg iron) tablet (FeroSul) 325 mg PO DAILY 11/09/24 lorazepam 1 mg tablet 1 mg PO TID 11/09/24 doxycycline monohydrate 100 mg capsule 100 mg PO BID 5 days #10 caps 11/12/24 methocarbamol 750 mg tablet 1,500 mg PO TID muscle spasm 08/16/25 oxycodone 15 mg tablet 15 mg PO Q6H PRN PRN pain 08/16/25 pregabalin 150 mg capsule 150 mg PO TID 08/16/25 semaglutide 2 mg/dose (8 mg/3 mL) subcutaneous pen injector (Ozempic) mg subcut 08/16/25 amoxicillin 875 mg-potassium clavulanate 125 mg tablet 1 tab PO BID #14 tabs 08/19/25 doxycycline hyclate 100 mg capsule 100 mg PO BID 7 days #14 caps 08/19/25 Physical Exam Narrative GENERAL: dyspneic at rest HEENT: Atraumatic; moist oral mucosa EYES; Anicteric, Normal Conjunctiva NECK; supple, normal thyroid, no distended JVD. RESPIRATORY: Diminished to auscultation bilaterally, CARDIOVASCULAR: Regular S1 S2, no audible murmurs GI: soft, non-tender, normoactive bowel sounds, : No Renal angle tenderness; EXTREMITIES: Erythema involving the right lower extremity, dry ulceration of the base of the plantar surface of the left big toe MUSCULOSKELETAL: No Joint Tenderness; NEURO: Awake; no lateralizing signs. SKIN: Bilateral stasis dermatitis PSYCH; flat affect Weight / BMI Weight Weight: 181.7 kg Body Mass Index (BMI) 66.7 ABG / Lab / Microbiology Data 08/19/25 04:57 08/19/25 04:57 Laboratory: Laboratory Results - last 24 hr 08/18/25 11:54: POC Glucose 341 H 08/18/25 14:56: POC Glucose 456 H* 08/18/25 16:33: POC Glucose 460 H* 08/18/25 21:04: POC Glucose 458 H* 08/19/25 04:57: WBC 7.7, RBC 3.60 L, Hgb 10.2 L, Hct 32.7 L, MCV 90.8, MCH 28.3, MCHC 31.2 L, RDW Std Deviation 43.4, RDW Coeff of Darrion 13.2, Plt Count 277, MPV 10.0, Immature Gran % (Auto) 1.000 H, Neut % (Auto) 63.3, Lymph % (Auto) 25.6, Ware % (Auto) 6.0, Eos % (Auto) 3.2, Baso % (Auto) 0.9, Absolute Neuts (auto) 4.9, Absolute Lymphs (auto) 1.98, Nucleated RBC % 0, Sodium 135, Potassium 4.0, Chloride 89 L, Carbon Dioxide 35.7 H, Anion Gap 10, BUN 25 H, Creatinine 0.93, Estim Creat Clear Calc 126.36, Est GFR (MDRD) Non-Af 76, BUN/Creatinine Ratio 26.4 H, Glucose 397 H, Calcium 9.5, Vancomycin Trough 19.6 H 08/19/25 08:01: POC Glucose 393 H Microbiology: Microbiology 08/16/25 18:45 Wound - Leg, Right Gram Stain - Final 08/16/25 18:45 Wound - Leg, Right Wound Culture - Preliminary Meth. resistant Staph. aureus Streptococcus thoraltensis Streptococcus mitis/ oralis 08/16/25 19:30 Blood Culture (Wb) - Left Hand Blood Culture - Preliminary No growth in 48 hours. 08/16/25 19:55 Blood Culture (Wb) - Right Hand Blood Culture - Preliminary No growth in 48 hours. 08/16/25 18:45 Wound - Right Foot Skin and Soft Tissue MRSA/MSSA (PCR - Final Meth. resistant Staph. aureus D/C Instructions Discharge Activity: Return to Normal Activity Call your doctor if you observe: Fever of 101 or Higher, Shortness of breath, Fainting spells and Chest pain DC O2, CPAP, BIPAP Needs Home O2 Discharge instructions: No Meaningful Use Info Meaningful Use Meaningful Use Diagnoses (Choose all that apply): None applicable Discharge Plan Admission Admit Date/Time: 08/16/25 21:09 Attending Provider: Jersey Pradhan Primary Care Provider: Delmy Landon Consulting Providers: Olamide Mas; Norman Mcclendon; Alec Gonzalez Discharge Orders/Prescriptions Prescriptions: New doxycycline hyclate 100 mg capsule 100 mg PO BID 7 Days Qty: 14 0RF amoxicillin-pot clavulanate 875-125 mg tablet 1 tab PO BID Qty: 14 0RF Continued loratadine 10 mg tablet 10 mg PO DAILY PRN (Reason: Allergies) lisinopril 10 mg tablet 10 mg PO DAILY Patient Comments: TAKE 1 TABLET BY MOUTH EVERY DAY metformin 500 mg tablet extended release 24 hr 1,000 mg PO DAILY metoprolol succinate 25 mg tablet extended release 24 hr 25 mg PO DAILY Patient Comments: TAKE 1 TABLET BY MOUTH EVERY DAY atorvastatin 80 mg tablet 80 mg PO QHS [id number]-[id number]-MC-calcium-mins 1 EACH tablet 1 ea PO DAILY Patient Comments: vitamin omeprazole 40 MG capsule,delayed release(DR/EC) 40 mg PO DAILY diltiazem HCl 120 MG capsule 120 mg PO DAILY apixaban 5 MG tablet 5 mg PO BID furosemide 40 mg tablet 80 mg PO DAILY albuterol sulfate 2.5 mg /3 mL (0.083 %) solution for nebulization 2.5 mg inhalation Q4H PRN (Reason: SOB) fenofibrate nanocrystallized 145 mg tablet 145 mg PO DAILY oxycodone-acetaminophen [Percocet] 5-325 mg tablet 1 tab PO Q6H PRN (Reason: pain) 3 Days Qty: 12 0RF insulin glargine U-300 conc [Toujeo Max U-300 SoloStar] 300 unit/mL (3 mL) insulin pen 104 unit SUBCUT BID Patient Comments: PT STATES SHE TAKES THIS BUT DOES NOT KNOW HOW OFTEN OR HOW MANY UNITS Ozempic 1 mg/dose (4 mg/3 mL) pen injector 1 mg SUBCUT .1XW metolazone 2.5 mg tablet 2.5 mg PO .every / Qty: 8 1RF ferrous sulfate [FeroSul] 325 mg (65 mg iron) tablet 325 mg PO DAILY ergocalciferol (vitamin D2) [Vitamin D2] 1,250 mcg (50,000 unit) capsule 1,250 mcg PO QWEEK lorazepam 1 mg tablet 1 mg PO TID duloxetine 60 mg capsule,delayed release(DR/EC) 60 mg PO DAILY doxycycline monohydrate 100 mg Capsule 100 mg PO BID 5 Days Qty: 10 0RF oxycodone 15 mg tablet 15 mg PO Q6H PRN PRN (Reason: pain) methocarbamol 750 mg tablet 1,500 mg PO TID pregabalin 150 mg capsule 150 mg PO TID Ozempic 2 mg/dose (8 mg/3 mL) pen injector SUBCUT Patient Comments: [NO ORIGINAL SIG] potassium chloride 20 mEq tablet,ER particles/crystals See Rx Instructions .ROUTE .COMPLEX Qty: 60 11RF Dose Instruction: TAKE 1 TABLET BY MOUTH TWICE A DAY Rx Instructions: TAKE 1 TABLET BY MOUTH TWICE A DAY Discontinued cephalexin 500 mg capsule 500 mg PO TID Qty: 14 0RF Referrals / Follow Up: Delmy Landon MD [Primary Care Provider, Family Practice] - Within 1 Week Norman Mcclendon DPM [Med Staff - Courtesy Staff, Podiatry] - Within 1 Week Disposition Disposition (needs filled in before D/C Order can be placed): Home, Self Care Charges/Coding Visit Charges Inpatient E&M: 05941 Disch Hosp >30min
--- NOTE | 2025-08-19 12:09 | CASEMGMT ---
Social Work Discharge Summary faxed to pt Direction mechanical project manager Brandy Ross. PER Denson
--- NOTE | 2025-08-19 15:17 | PHA.DC.MC.R ---
Pharmacy [facility] Counseling Pharmacy Service has performed discharge medication reconciliation and counseling for this patient. The patient's discharge medication list was reviewed for discrepancies and discrepancies were resolved. The patient was counseled on the following discharge medications and changes in medications for homegoing were reviewed. The Reason for Use, instructions for use, and potential side effects were reviewed for all new medications. The patient's questions regarding all of their medications were answered. 1. Augmentin 875 PO BID x 7 days 2. Doxycycline 100 mg PO BID x 7 days The patient was able to verbally demonstrate an understanding of their discharge medications. Medications at Discharge Home Medications multivit-iron 18 mg-folic acid 400 mcg-calcium 500 mg-minerals tablet 1 ea PO DAILY supplement 03/26/17 omeprazole 40 mg capsule,delayed release 40 mg PO DAILY GERD 12/15/18 loratadine 10 mg tablet 10 mg PO DAILY PRN Allergies 03/01/20 apixaban 5 mg tablet 5 mg PO BID blood thinner 08/20/20 diltiazem HCl 120 mg capsule,extended release 24 hr 120 mg PO DAILY heart rate 08/20/20 lisinopril 10 mg tablet 10 mg PO DAILY blood pressure 03/26/21 metformin 500 mg tablet,extended release 24 hr 1,000 mg PO DAILY diabetes 03/26/21 metoprolol succinate 25 mg tablet,extended release 24 hr 25 mg PO DAILY blood pressure 03/26/21 atorvastatin 80 mg tablet 80 mg PO QHS cholesterol 02/07/22 furosemide 40 mg tablet 80 mg PO DAILY diuretic 09/22/22 albuterol sulfate 2.5 mg/3 mL (0.083 %) solution for nebulization 2.5 mg inhalation Q4H PRN SOB 12/09/22 fenofibrate nanocrystallized 145 mg tablet 145 mg PO DAILY CHOLESTEROL 12/09/22 insulin glargine U-300 conc 300 unit/mL (3 mL) subcutaneous pen (Toujeo Max U-300 SoloStar) 104 unit subcut BID diabetes 07/14/23 semaglutide 1 mg/dose (4 mg/3 mL) subcutaneous pen injector (Ozempic) 1 mg subcut .1XW diabetes 07/14/23 metolazone 2.5 mg tablet 2.5 mg PO .every /thurs #8 tabs 07/15/23 oxycodone-acetaminophen 5 mg-325 mg tablet (Percocet) 1 tab PO Q6H PRN pain 3 days #12 tabs 01/15/24 potassium chloride 20 mEq tablet,extended release(part/cryst) See Rx Instructions .Route .COMPLEX #60 TABLETS 08/05/24 duloxetine 60 mg capsule,delayed release 60 mg PO DAILY 11/09/24 ergocalciferol (vitamin D2) 1,250 mcg (50,000 unit) capsule (Vitamin D2) 1,250 mcg PO QWEEK vitamin 11/09/24 ferrous sulfate 325 mg (65 mg iron) tablet (FeroSul) 325 mg PO DAILY supplement 11/09/24 lorazepam 1 mg tablet 1 mg PO TID anxiety 11/09/24 doxycycline monohydrate 100 mg capsule 100 mg PO BID 5 days #10 caps 11/12/24 methocarbamol 750 mg tablet 1,500 mg PO TID muscle spasm 08/16/25 oxycodone 15 mg tablet 15 mg PO Q6H PRN PRN pain 08/16/25 pregabalin 150 mg capsule 150 mg PO TID pain 08/16/25 semaglutide 2 mg/dose (8 mg/3 mL) subcutaneous pen injector (Ozempic) mg subcut 08/16/25 amoxicillin 875 mg-potassium clavulanate 125 mg tablet 1 tab PO BID #14 tabs 08/19/25 doxycycline hyclate 100 mg capsule 100 mg PO BID 7 days #14 caps 08/19/25
== END 2025-08-19 16:02 | disposition home or self-care (01) | DRG 602 ==
LOC: ED 20:53 → PCU 21:28
PROVIDERS: Admitting Provider Family Medicine; Emergency Provider Emergency Medicine; PCP Family Medicine; Visit Provider Internal Medicine
DX: L03.115 Cellulitis of right lower limb (principal); I50.33 Acute on chronic diastolic (congestive) heart failure; Z68.44 Body mass index [BMI] 60.0-69.9, adult; J96.12 Chronic respiratory failure with hypercapnia; I13.0 Hypertensive heart and chronic kidney disease with heart failure and stage 1 through stage 4 chronic kidney disease, or unspecified chronic kidney disease; J96.11 Chronic respiratory failure with hypoxia; D63.1 Anemia in chronic kidney disease; B95.2 Enterococcus as the cause of diseases classified elsewhere; E11.22 Type 2 diabetes mellitus with diabetic chronic kidney disease; J44.9 Chronic obstructive pulmonary disease, unspecified; E03.8 Other specified hypothyroidism; E11.621 Type 2 diabetes mellitus with foot ulcer; I87.2 Venous insufficiency (chronic) (peripheral); E66.01 Morbid (severe) obesity due to excess calories; E11.65 Type 2 diabetes mellitus with hyperglycemia; N18.2 Chronic kidney disease, stage 2 (mild); E78.5 Hyperlipidemia, unspecified; G47.33 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 (adult) (pediatric); K21.9 Gastro-esophageal reflux disease without esophagitis; Z79.4 Long term (current) use of insulin; E11.42 Type 2 diabetes mellitus with diabetic polyneuropathy; E11.59 Type 2 diabetes mellitus with other circulatory complications; S90.21 Contusion of great toe with damage to nail; L97.521 Non-pressure chronic ulcer of other part of left foot limited to breakdown of skin; F41.9 Anxiety disorder, unspecified; D50.9 Iron deficiency anemia, unspecified; I25.2 Old myocardial infarction; L03.116 Cellulitis of left lower limb; X58.XXXS Exposure to other specified factors, sequela; E66.813 Obesity, class 3; B95.62 Methicillin resistant Staphylococcus aureus infection as the cause of diseases classified elsewhere; B95.4 Other streptococcus as the cause of diseases classified elsewhere; Z91.199 Patient's noncompliance with other medical treatment and regimen due to unspecified reason; Z99.81 Dependence on supplemental oxygen; Z79.01 Long term (current) use of anticoagulants; Z79.84 Long term (current) use of oral hypoglycemic drugs; Z79.85 Long-term (current) use of injectable non-insulin antidiabetic drugs; Z79.899 Other long term (current) drug therapy; Z86.711 Personal history of pulmonary embolism; Z87.891 Personal history of nicotine dependence
CPT/HCPCS: 36415; 71046; 73620; 80048; 80053; 80061; 80202; 82962; 83036; 83605; 83735; 83880; 84100; 84145; 84443; 84484; 85025; 85610; 85730; 87040; 87070; 87077; 87186; 87205; 87640; 93005; 94002; 94003; 94640; 94668; 94762; 97161; 97166; 97802; 99285; 99406; A4216; J0295; J1938

== ENCOUNTER 2025-09-28 11:15 | Outpatient (RCR) | payer MEDICARE, MEDICAID, SELFPAY ==
[2025-09-07 14:03] VITALS: BP 163/86; PULSE 96; RESP 18; TEMP 36.4; BMI 66.5
--- NOTE | 2025-09-07 15:48 | PCM.WC.HP ---
History of Present Illness Date of Service: 09/07/25 Chief Complaint: Non-healing wound left inguinal and vulval area. History of Wound: Surgery 06/09/18 - Surgical preparation left inguinal area and vulval area (involving genitocrural and mons pubis area) with incision and drainage and excisional debridement necrotizing diabetic abscess and partial vulvectomy including deep subcutaneous tissue (264 cm2). Wound care - VAC. Having trouble maintaing a seal. Operative culture - Streptococcus agalactiae, Pevotella bivia, and E. coli. She was discharged home on Doxycyline and Cefadroxil. Encourage nutritional supplementation with protein to help the healing process. Her HgbA1c in the hospital was 10.1. Today the fever denies and fever. States she is eating well. Progress of Wound: Patient is a 50-year-old diabetic female presenting to wound care center today for evaluation of bilateral full-thickness wounds. Patient pacifically has a wound to the left great toe and right leg. She was seen by her outside captain assistant 1 week after discharge for [facility] for admission for cellulitis and MRSA to both feet. She was on IV antibiotics and discharged on oral antibiotics. She admits improvement to legs but still has the wounds. She is referred to [facility] for expert treatment. She denies trauma. Her blood sugar is improving. She denies constitutional symptoms. No other pedal complaints at this time. [facility] Medical History Cellulitis of leg MRSA cellulitis of left foot Arthritis Non-smoker CHF (congestive heart failure) History of diabetes mellitus Anemia Hypoxia Morbid obesity Venous stasis dermatitis of both lower extremities BMI 60.0-69.9, adult Noncompliance with CPAP treatment Acute on chronic respiratory failure with hypoxia and hypercapnia Perianal abscess Type 2 diabetes mellitus with hyperglycemia Contusion of knee, right Chronic diastolic (congestive) heart failure Depression Diabetes GERD (gastroesophageal reflux disease) BiPAP (biphasic positive airway pressure) dependence Sleep apnea On home oxygen therapy Smoker COPD (chronic obstructive pulmonary disease) Hypertension Congestive heart failure KERRY (acute kidney injury) Chronic respiratory failure with hypoxia Opiate overdose History of left heart catheterization (LHC) (~01/05/19) Type 2 diabetes mellitus Old myocardial infarction Essential hypertension Restrictive lung disease secondary to obesity Dyspnea on exertion Pulmonary embolism Hidradenitis Non-healing open wound of left groin Open wound of vulva with complication Necrotizing soft tissue infection Abscess of vulva Soft tissue abscess of inguinal region Respiratory failure with hypoxia Abscess Hyperglycemia due to type 2 diabetes mellitus NSTEMI (non-ST elevated myocardial infarction) Tobacco abuse Hyperlipidemia Morbid obesity History of MRSA infection Anxiety 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 Home Medications Medication Instructions Recorded Last Taken Type multivit-iron 18 mg-folic acid 400 1 ea PO DAILY supplement 03/26/17 07/14/23 History mcg-calcium 500 mg-minerals tablet omeprazole 40 mg capsule,delayed 40 mg PO DAILY GERD 12/15/18 07/14/23 History release loratadine 10 mg tablet 10 mg PO DAILY PRN Allergies 03/01/20 07/14/23 History apixaban 5 mg tablet 5 mg PO BID blood thinner 08/20/20 07/14/23 History diltiazem HCl 120 mg 120 mg PO DAILY heart rate 08/20/20 07/14/23 History capsule,extended release 24 hr lisinopril 10 mg tablet 10 mg PO DAILY blood pressure 03/26/21 07/14/23 History metformin 500 mg tablet,extended 1,000 mg PO DAILY diabetes 03/26/21 07/14/23 History release 24 hr metoprolol succinate 25 mg 25 mg PO DAILY blood pressure 03/26/21 07/14/23 History tablet,extended release 24 hr atorvastatin 80 mg tablet 80 mg PO QHS cholesterol 02/07/22 07/14/23 History furosemide 40 mg tablet 80 mg PO DAILY diuretic 09/22/22 07/14/23 History albuterol sulfate 2.5 mg/3 mL 2.5 mg inhalation Q4H PRN SOB 12/09/22 07/10/23 History (0.083 %) solution for nebulization fenofibrate nanocrystallized 145 145 mg PO DAILY CHOLESTEROL 12/09/22 07/14/23 History mg tablet insulin glargine U-300 conc 300 104 unit subcut BID diabetes 07/14/23 07/13/23 History unit/mL (3 mL) subcutaneous pen (Toujeo Max U-300 SoloStar) semaglutide 1 mg/dose (4 mg/3 mL) 1 mg subcut .1XW diabetes 07/14/23 07/13/23 History subcutaneous pen injector (Ozempic) metolazone 2.5 mg tablet 2.5 mg PO .every /thurs #8 tabs 07/15/23 Unknown Rx oxycodone-acetaminophen 5 mg-325 1 tab PO Q6H PRN pain 3 days #12 01/15/24 Unknown Rx mg tablet (Percocet) tabs potassium chloride 20 mEq See Rx Instructions .Route 08/05/24 Unknown Rx tablet,extended release(part/cryst) .COMPLEX #60 TABLETS duloxetine 60 mg capsule,delayed 60 mg PO DAILY 11/09/24 Unknown History release ergocalciferol (vitamin D2) 1,250 1,250 mcg PO QWEEK vitamin 11/09/24 Unknown History mcg (50,000 unit) capsule (Vitamin D2) ferrous sulfate 325 mg (65 mg 325 mg PO DAILY supplement 11/09/24 Unknown History iron) tablet (FeroSul) lorazepam 1 mg tablet 1 mg PO TID anxiety 11/09/24 Unknown History methocarbamol 750 mg tablet 1,500 mg PO TID muscle spasm 08/16/25 Unknown History oxycodone 15 mg tablet 15 mg PO Q6H PRN PRN pain 08/16/25 Unknown History pregabalin 150 mg capsule 150 mg PO TID pain 08/16/25 Unknown History semaglutide 2 mg/dose (8 mg/3 mL) mg subcut 08/16/25 Unknown History subcutaneous pen injector (Ozempic) Allergy/AdvReac Type Severity Reaction Status Date / Time cyclobenzaprine HCl (From Allergy Hives Verified 08/16/25 18:21 Flexeril) venlafaxine (From Effexor) AdvReac Severe hives Verified 08/16/25 18:21 Family History Father CVA (cerebral vascular accident) Heart disease Diabetes Mother Thyroid disorder Surgical History History of delivery H/O arthroscopic knee surgery History of cholecystectomy Social History household members: none Smoking Status: Former smoker how long ago did patient quit smokin PPD smoker, quit x 1 year approximately. second hand exposure: Yes alcohol intake: never substance use type: does not use caffeine: Yes Type: carbonated beverages Number of servings: 1 and coffee Number of servings: 1 Vital Signs Vital Signs Vital Signs: 09/07/25 14:03 Temperature 97.5 F L Temperature Source Temporal Pulse Rate 96 Respiratory Rate 18 Blood Pressure 163/86 H Blood Pressure Mean 111 Blood Pressure Source Monitor Blood Pressure Position Sitting Blood Pressure Location Left Arm Oxygen Delivery Method Room Air Weight Weight: 181.437 kg Body Mass Index (BMI) 66.5 Physical Exam Narrative Vascular: DP and PT pulses are palpable to the bilateral lower extremity. CFT is brisk. Nonpitting edema appreciated to the bilateral lower extremity. Skin temperature gradient is warm to warm from proximal ankles to distal digits. Evidence of diffuse hemosiderin deposits to the bilateral lower extremity. Neurological: Light touch is intact. Protective station is diminished. Dermatological: Full-thickness wound to the superior right leg measuring 0.5 x 0.5 x 0.1 cm. Evidence of full-thickness wound to the inferior right leg measuring 2.0 x 1.4 x 0.1 cm. Both wounds are granular nature with mild serous drainage. No concern for infection at this time. Full-thickness wound to the left hallux measuring 0.7 x 0.7 x 0.2 cm. Wound base is granular with no sign of infection. Excisional debridement down to including subcutaneous tissue with a number 5 mm dermal curette to the right superior full-thickness wound done without incident. Predebridement measurement was 0.3 x 0.3 x 0.1 cm. Postdebridement measurement is 0.5 x 0.5 x 0.1 cm. Excisional debridement down to including subcutaneous tissue with a number 5 mm dermal curette to the right inferior full-thickness wound done without incident. Predebridement measurement was 1.5 x 1.2 x 0.1 cm. Postdebridement measurement is 2.0 x 1.4 x 0.1 cm. Excisional debridement down to and including subcutaneous tissue with a number 5 mm dermal curette to the left full-thickness wound to the hallux done without incident. Predebridement measurement was 0.5 x 0.4 x 0.1 cm. Postdebridement measurement 0.7 x 0.7 x 0.2 cm. Muscle skeletal: Muscle strength 5 and 5 in all quadrants of the bilateral extremity. No pain to palpation to full-thickness wounds about the lower extremity. No pain to calf pressure. Debridement Note Debridement Note Debridement Free Text: Excisional debridement down to including subcutaneous tissue with a number 5 mm dermal curette to the right superior full-thickness wound done without incident. Predebridement measurement was 0.3 x 0.3 x 0.1 cm. Postdebridement measurement is 0.5 x 0.5 x 0.1 cm. Excisional debridement down to including subcutaneous tissue with a number 5 mm dermal curette to the right inferior full-thickness wound done without incident. Predebridement measurement was 1.5 x 1.2 x 0.1 cm. Postdebridement measurement is 2.0 x 1.4 x 0.1 cm. Excisional debridement down to and including subcutaneous tissue with a number 5 mm dermal curette to the left full-thickness wound to the hallux done without incident. Predebridement measurement was 0.5 x 0.4 x 0.1 cm. Postdebridement measurement 0.7 x 0.7 x 0.2 cm. Post-Debridement Measurements and Additional Note: Post-Debridement Measurements/Treatment - Nurse 1 - General Ulcer Assessment Start: 09/07/25 14:02 Freq: Status: Active Protocol: [email or web address] Activity Type Activity Date Activity User E-sign Co-sign Detail Recorded Client Recorded Date Recorded By Document 09/07/25 14:03 [id number] 09/07/25 14:19 09/07/25 14:03 - Today's Visit Information Type of service Initial Visit Arrival Mode Wheelchair Transfer Assistance None Patient Identification Verified (Name & Yes ) Height and Weight Height 5 ft 5 in Weight 181.437 kg Weight in Pounds 400.0 lbs Weight Measurement Method Stated by Patient Body Mass Index (BMI) 66.5 BMI Classification Obese Vital Signs Temperature (97.8 F-99.1 F) 97.5 F L Temperature Source Temporal Pulse Rate (60-100) 96 Pulse Location Monitor Respiratory Rate (12-18) 18 Respiratory rate source Observation Oxygen Delivery Method Room Air Blood Pressure (90/60-120/80) 163/86 H Blood Pressure Mean 111 Source Monitor Position Sitting Blood Pressure Location Left Arm History Since Last Visit- (Skip if this is Patient's initial visit) Left Footwear Regular Shoe Right Footwear Regular Shoe Pain Scale: 0-10 Numeric Is Patient Pain Free? Yes Lower Extremity Assessment/ Foot Assessment/ Toe Nail Assessment Right -Hair Growth on Legs No -Hair Growth on Toes No -Temperature of Extremity Warm -Capillary Refill Less than 3 Seconds -Other Deformity No -Prior Foot Ulcer No -Charcot Joint No -Prior Amputation No -Thick Yes -Discolored Yes -Deformed Yes -Improper Length & Hygeine Yes Left -Hair Growth on Legs No -Hair Growth on Toes No -Temperature of Extremity Warm -Capillary Refill Less than 3 Seconds -Other Deformity No -Prior Foot Ulcer No -Charcot Joint No -Prior Amputation No -Thick Yes -Discolored Yes -Deformed Yes -Improper Length & Hygeine Yes Teaching Assessment Preferences Verbal,Written Barriers to Learning None Readiness To Learn Excellent Willingness to Engage in Self Management High Activies Readiness to Engage in Self Management High Activities Anxiety Level Calm Cooperation Cooperative Perception Coherent Does Patient Smoke tobacco or other No substances Smoking Status Former smoker Culture/Scientologist/Sales And Marketing Agent Cultural/Scientologist Needs that may affect No Treatment Plan Would you allow our hospital transit mixer operator to No meet you for the purpose of spiritual/ emotional support? Sales And Marketing Agent to contact place of buddhism No WC - Nurse 1 - General Ulcer Measurement Start: 09/07/25 14:02 Freq: Status: Active Protocol: Activity Type Activity Date Activity User E-sign Co-sign Detail Recorded Client Recorded Date Recorded By Document 09/07/25 14:03 [id number] 09/07/25 14:19 09/07/25 14:03 Wound Center Nurse 1 #5 Right stratton Superior -Current Size (cm) - Length 0.5 -Current Size (cm) - Width 0.4 -Current Size (cm) - Depth 0.1 -Total Square Cm 0.20 -Date of Last Picture (Recall this 09/07/25 field) -Photo Taken Yes -Tunneling No -Undermining/Tunneling No -Circular Undermining No -Wound Margin Distinct, Outline Attached -Granulation Amt Medium (34-66%) -Granulation Quality Red -Slough/Fibrin No -Necrosis Amt None Present (0 %) -Texture (Gill-wound Skin Appearance) Assessed -Moisture (Gill-wound Skin Appearance) Assessed -Color (Gill-wound Skin Appearance) Assessed -Temperature (Gill-wound Skin No Abnormality Appearance) (Pt Warm) -Tenderness on Palpation (Gill-wound No Skin Appearance) -Ulcer Cleansing Rinsed/ Irrigated with Saline -Foul Odor after Cleansing No -Anesthetic Used 5% Lidocaine Gel #4 Right Medial Leg cluster -Current Size (cm) - Length 5.5 -Current Size (cm) - Width 1.5 -Current Size (cm) - Depth 0.1 -Total Square Cm 8.25 -Date of Last Picture (Recall this 09/07/25 field) -Photo Taken Yes -Tunneling No -Undermining/Tunneling No -Circular Undermining No -Exudate Amt Small -Exudate Type Serosanguineous -Wound Margin Distinct, Outline Attached -Granulation Amt Medium (34-66%) -Granulation Quality Red -Slough/Fibrin No -Texture (Gill-wound Skin Appearance) Assessed -Moisture (Gill-wound Skin Appearance) Assessed -Color (Gill-wound Skin Appearance) Assessed -Temperature (Gill-wound Skin No Abnormality Appearance) (Pt Warm) -Tenderness on Palpation (Gill-wound No Skin Appearance) -Ulcer Cleansing Rinsed/ Irrigated with Saline -Foul Odor after Cleansing No -Anesthetic Used 5% Lidocaine Gel #3 Left Hallux, plantar -Current Size (cm) - Length 0.7 -Current Size (cm) - Width 0.5 -Current Size (cm) - Depth 0.3 -Total Square Cm 0.35 -Date of Last Picture (Recall this 09/07/25 field) -Photo Taken Yes -Tunneling No -Undermining/Tunneling No -Circular Undermining No -Exudate Amt None Present -Wound Margin Distinct, Outline Attached -Granulation Amt Small (1-33%) -Slough/Fibrin Yes -Texture (Gill-wound Skin Appearance) Assessed,Callus -Moisture (Gill-wound Skin Appearance) Assessed -Color (Gill-wound Skin Appearance) Assessed -Temperature (Gill-wound Skin No Abnormality Appearance) (Pt Warm) -Tenderness on Palpation (Gill-wound No Skin Appearance) -Ulcer Cleansing Rinsed/ Irrigated with Saline -Foul Odor after Cleansing No -Anesthetic Used 5% Lidocaine Gel Lower Limb Edema Present No Right Calf (cm) 47.7 Right Ankle (cm) 23.2 Left Calf (cm) 47.5 Left Ankle (cm) 23.3 WC - Nurse 2 - General Ulcer CM Notes Start: 09/07/25 14:02 Freq: Status: Active Protocol: Activity Type Activity Date Activity User E-sign Co-sign Detail Recorded Client Recorded Date Recorded By Document 09/07/25 14:24 [email or web address] [id number] 09/07/25 14:32 JF 09/07/25 14:24 Wound Center Nurse 2 #5 Right stratton Superior -Time 14:25 -Correct Patient Yes -Correct Side, Site, Position Yes -Correct Procedure Yes -Procedure Performed Yes -Type of Procedure Debridement -Clinical Debridement Subcutaneous -Tissue Removed Subcutaneous -Post Debridement (cm) - Length 0.5 -Post Debridement (cm) - Width 0.5 -Post Debridement (cm) - Depth 0.1 -Total Square (Post) (cm) 0.25 -Area of Debridement (cm) - Length 0.5 -Area of Debridement (cm) - Width 0.5 -Total Square (Area) (cm) 0.25 -Tunneling No -Undermining/Tunneling No -Circular Undermining No -Wound/Ulcer Outcome Not Healed -Ulcer Cleansing Rinsed/ Irrigated with Saline -Foul Odor after Cleansing No -Bioengineered Tissue No -Bleeding Controlled with Pressure -Treatment Response Procedure Tolerated Well -Offloading No -Debridement - Subq, 1st 20sq cm Yes #4 Right Medial Leg cluster -Time 14:26 -Correct Patient Yes -Correct Side, Site, Position Yes -Correct Procedure Yes -Procedure Performed Yes -Type of Procedure Debridement -Clinical Debridement Subcutaneous -Tissue Removed Subcutaneous -Post Debridement (cm) - Length 2.0 -Post Debridement (cm) - Width 1.4 -Post Debridement (cm) - Depth 0.1 -Total Square (Post) (cm) 2.80 -Area of Debridement (cm) - Length 2.0 -Area of Debridement (cm) - Width 1.4 -Total Square (Area) (cm) 2.80 -Tunneling No -Undermining/Tunneling No -Circular Undermining No -Wound/Ulcer Outcome Not Healed -Ulcer Cleansing Rinsed/ Irrigated with Saline -Foul Odor after Cleansing No -Bioengineered Tissue No -Bleeding Controlled with Pressure -Treatment Response Procedure Tolerated Well -Offloading No -Debridement - Subq, 1st 20sq cm No #3 Left Hallux, plantar -Time 14:26 -Correct Patient Yes -Correct Side, Site, Position Yes -Correct Procedure Yes -Procedure Performed Yes -Type of Procedure Debridement -Clinical Debridement Subcutaneous -Tissue Removed Subcutaneous -Post Debridement (cm) - Length 0.7 -Post Debridement (cm) - Width 0.7 -Post Debridement (cm) - Depth 0.2 -Total Square (Post) (cm) 0.49 -Area of Debridement (cm) - Length 0.7 -Area of Debridement (cm) - Width 0.7 -Total Square (Area) (cm) 0.49 -Tunneling No -Undermining/Tunneling No -Circular Undermining No -Wound/Ulcer Outcome Not Healed -Ulcer Cleansing Rinsed/ Irrigated with Saline -Foul Odor after Cleansing No -Bioengineered Tissue No -Bleeding Controlled with Pressure -Treatment Response Procedure Tolerated Well -Offloading No -Debridement - Subq, 1st 20sq cm No Pain Scale: 0-10 Numeric Is Patient Pain Free? Yes - Nurse 3 - General Ulcer D/C NN Start: 09/07/25 14:02 Freq: Status: Active Protocol: Activity Type Activity Date Activity User E-sign Co-sign Detail Recorded Client Recorded Date Recorded By Document 09/07/25 14:52 [id number] 09/07/25 14:54 09/07/25 14:52 Wound Care Center Nurse 3 #5 Right stratton Superior -Other Dressing bacitracin -Primary Dressing Covered/Secured with Dry Gauze & Roll Gauze, Secured with Tape #4 Right Medial Leg cluster -Other Dressing bacitracin -Primary Dressing Covered/Secured with Dry Gauze & Roll Gauze, Secured with Tape #3 Left Hallux, plantar -Ulcer Cleansing Rinsed/ Irrigated with Saline -Primary Dressing Applied AMD Dressing 4x4 -Primary Dressing Covered/Secured with Dry Gauze, Secured with Tape -AMD Dressing 4x4 1 BLE -Tubular Bandage Single Layer -Size of Tubigrip Used Size E -Size E ($) 2 Treatment Response Procedure Tolerated Well Pain Scale: 0-10 Numeric Is Patient Pain Free? Yes - Visit Discharge Discharge Condition Stable Ambulatory Status Ambulatory Transportation Private Auto Medication Reconcilliation completed & No provided to patient/care provider Clinical Summary of Care Provided Yes Notes: 02 6l NC Assessment/Plan Assessment/Plan (1) Non-pressure chronic ulcer of other part of right lower leg with fat layer exposed: CODE(S): L97.812 - Non-pressure chronic ulcer of other part of right lower leg with fat layer exposed PLAN: Patient was examined and evaluated. All findings were discussed with the patient. All questions were answered to the patient's satisfaction. Excisional debridement down to including subcutaneous tissue with a number 5 mm dermal curette to the right superior full-thickness wound done without incident. Predebridement measurement was 0.3 x 0.3 x 0.1 cm. Postdebridement measurement is 0.5 x 0.5 x 0.1 cm. Excisional debridement down to including subcutaneous tissue with a number 5 mm dermal curette to the right inferior full-thickness wound done without incident. Predebridement measurement was 1.5 x 1.2 x 0.1 cm. Postdebridement measurement is 2.0 x 1.4 x 0.1 cm. Excisional debridement down to and including subcutaneous tissue with a number 5 mm dermal curette to the left full-thickness wound to the hallux done without incident. Predebridement measurement was 0.5 x 0.4 x 0.1 cm. Postdebridement measurement 0.7 x 0.7 x 0.2 cm. The bilateral lower extremities are cleaned and patted dry. Triple ointment antibiotic were applied to the full-thickness wounds to the right leg covered with dry sterile dressing and Tubigrip. The left hallux was dressed with Betadine paint and sterile Band-Aid and the foot and leg were covered with Tubigrip. Educated patient continue daily dressing changes. Educated the patient on importance of checking her feet twice a day applying lotion and continuing strict blood sugar control between 100 to 150 mg/dL. I did educate the patient that if her left hallux is not improving I will recommend moving forward with surgical intervention consisting of IPJ arthroplasty with delayed primary closure of the full-thickness wound. Patient will follow-up with Dr. Bourgeois in 1 week (2) Non-pressure chronic ulcer of other part of left foot with fat layer exposed: CODE(S): L97.522 - Non-pressure chronic ulcer of other part of left foot with fat layer exposed (3) Acute painful diabetic polyneuropathy: CODE(S): E11.42 - Type 2 diabetes mellitus with diabetic polyneuropathy (4) Other specified peripheral vascular diseases: CODE(S): I73.89 - Other specified peripheral vascular diseases
[2025-09-21 10:28] VITALS: BP 149/86; PULSE 105; RESP 18; TEMP 37.2; BMI 66.5
--- NOTE | 2025-09-23 09:56 | WC ---
PHOTO-RIGHT LEG 09/21/25
--- NOTE | 2025-09-23 09:57 | WC ---
PHOTO-RIGHT LEG 09/21/25
--- NOTE | 2025-09-24 17:06 | PCM.WC.PN ---
History of Present Illness Date of Service: 09/21/25 Chief Complaint: Non-healing wound left inguinal and vulval area. History of Wound: Surgery 06/09/18 - Surgical preparation left inguinal area and vulval area (involving genitocrural and mons pubis area) with incision and drainage and excisional debridement necrotizing diabetic abscess and partial vulvectomy including deep subcutaneous tissue (264 cm2). Wound care - VAC. Having trouble maintaing a seal. Operative culture - Streptococcus agalactiae, Pevotella bivia, and E. coli. She was discharged home on Doxycyline and Cefadroxil. Encourage nutritional supplementation with protein to help the healing process. Her HgbA1c in the hospital was 10.1. Today the fever denies and fever. States she is eating well. Progress of Wound: Stable full-thickness wound to left great toe with evidence of new full-thickness wounds to the right leg secondary to swelling. Subjective Subjective Patient is a 50-year-old diabetic female present to clinic today follow-up evaluation of full-thickness wounds to the bilateral lower extremity. Patient missed her last few appointments due to ride complications. She has been compliant with dressing changes. Blood sugars well-controlled. She mitts to some new wounds secondary to swelling to right lower extremity. She is not wearing compression. Denies trauma. Denies constitutional symptoms. No other pedal complaints at this time. Objective Data Objective Data Vital Signs: Vital Signs Temp Pulse Resp BP O2 Del Method O2 Flow Rate 99 F 105 H 18 149/86 H Nasal Cannula 4 09/21/25 10:28 09/21/25 10:28 09/21/25 10:09/21/25 10:28 09/21/25 10:28 09/21/25 10:28 Oxygen Flow Rate (L/min) 4 Oxygen Delivery Method Nasal Cannula Weight: 181.437 kg Body Mass Index (BMI) 66.5 Physical Exam Narrative Vascular: DP and PT pulses are palpable to the bilateral lower extremity. CFT is brisk. Nonpitting edema appreciated to the bilateral lower extremity. Skin temperature gradient is warm to warm from proximal ankles to distal digits. Evidence of diffuse hemosiderin deposits to the bilateral lower extremity. Neurological: Light touch is intact. Protective station is diminished. Dermatological: Full-thickness wounds to the superior right leg measuring 3.5 x 2.1 x 0.1 cm. Evidence of full-thickness wound to the inferior right leg measuring 3.1 x 2.0 x 0.1 cm. Both wounds are granular nature with mild serous drainage. Full-thickness wound to the left hallux measuring 0.8 x 0.5 x 0.2 cm. Wound base is granular with no sign of infection. Excisional debridement down to including subcutaneous tissue with a number 5 mm dermal curette to the right superior full-thickness wound done without incident. Predebridement measurement was 3.0 x 2.0 x 0.1 cm. Postdebridement measurement is 3.5 x 2.1 x 0.1 cm Excisional debridement down to including subcutaneous tissue with a number 5 mm dermal curette to the right inferior full-thickness wound done without incident. Predebridement measurement was 2.8 x 1.8 x 0.1 cm.. Postdebridement measurement is 3.1 x 2.0 x 0.1 cm. Excisional debridement down to and including subcutaneous tissue with a number 5 mm dermal curette to the left full-thickness wound to the hallux done without incident. Predebridement measurement was 0.7 x 0.4 x 0.1 cm. Postdebridement measurement 0.8 x 0.5 x 0.2 cm. Muscle skeletal: Muscle strength 5 and 5 in all quadrants of the bilateral extremity. No pain to palpation to full-thickness wounds about the lower extremity. No pain to calf pressure. Debridement Note Debridement Note Debridement Free Text: Excisional debridement down to including subcutaneous tissue with a number 5 mm dermal curette to the right superior full-thickness wound done without incident. Predebridement measurement was 3.0 x 2.0 x 0.1 cm. Postdebridement measurement is 3.5 x 2.1 x 0.1 cm Excisional debridement down to including subcutaneous tissue with a number 5 mm dermal curette to the right inferior full-thickness wound done without incident. Predebridement measurement was 2.8 x 1.8 x 0.1 cm.. Postdebridement measurement is 3.1 x 2.0 x 0.1 cm. Excisional debridement down to and including subcutaneous tissue with a number 5 mm dermal curette to the left full-thickness wound to the hallux done without incident. Predebridement measurement was 0.7 x 0.4 x 0.1 cm. Postdebridement measurement 0.8 x 0.5 x 0.2 cm. Post-Debridement Measurements and Additional Note: Post-Debridement Measurements/Treatment WC - Nurse 1 - General Ulcer Assessment Start: 09/07/25 14:02 Freq: Status: Active Protocol: [email or web address] Activity Type Activity Date Activity User E-sign Co-sign Detail Recorded Client Recorded Date Recorded By Document 09/07/25 14:03 [id number] 09/07/25 14:19 Document 09/21/25 10:28 CP [id number] 09/21/25 10:38 CP 09/07/25 09/21/25 14:03 10:28 - Today's Visit Information Type of service Initial Visit Follow-up Visit (Physician/CEPHALOMETRIC TECHNICIAN ) Arrival Mode Wheelchair Wheelchair Transfer Assistance None Patient Identification Verified (Name & Yes Yes ) Patient Requires Transmission-Based No Precautions Height and Weight Height 5 ft 5 in Weight 181.437 kg Weight in Pounds 400.0 lbs Weight Measurement Method Stated by Patient Body Mass Index (BMI) 66.5 66.5 BMI Classification Obese Obese Vital Signs Temperature (97.8 F-99.1 F) 97.5 F L 99 F Temperature Source Temporal Temporal Pulse Rate (60-100) 96 105 H Pulse Location Monitor Monitor Respiratory Rate (12-18) 18 18 Respiratory rate source Observation Observation Oxygen Delivery Method Room Air Nasal Cannula O2 L/MIN (L/min) 4 Blood Pressure (90/60-120/80) 163/86 H 149/86 H Blood Pressure Mean (mm Hg) 111 107 Source Monitor Monitor Position Sitting Sitting Blood Pressure Location Left Arm Right Forearm History Since Last Visit- (Skip if this is Patient's initial visit) Have you changed medications since your No last visit? Any new allergies or adverse reactions No Had a fall/change in ADL's that may No increase risk of falls Signs or symptoms of abuse and/or No neglect since last visit Have you been in the hospital since your No last visit? Has dressing in place as prescribed Yes Has compression in place as prescribed No Has offloadiing in place as prescribed N/A Experienced any changes in pain level or No management Left Footwear Regular Shoe Right Footwear Regular Shoe Pain Scale: 0-10 Numeric Is Patient Pain Free? Yes Yes Lower Extremity Assessment/ Foot Assessment/ Toe Nail Assessment Right -Hair Growth on Legs No -Hair Growth on Toes No -Temperature of Extremity Warm -Capillary Refill Less than 3 Seconds -Other Deformity No -Prior Foot Ulcer No -Charcot Joint No -Prior Amputation No -Thick Yes -Discolored Yes -Deformed Yes -Improper Length & Hygeine Yes Left -Hair Growth on Legs No -Hair Growth on Toes No -Temperature of Extremity Warm -Capillary Refill Less than 3 Seconds -Other Deformity No -Prior Foot Ulcer No -Charcot Joint No -Prior Amputation No -Thick Yes -Discolored Yes -Deformed Yes -Improper Length & Hygeine Yes Teaching Assessment Preferences Verbal,Written Barriers to Learning None Readiness To Learn Excellent Willingness to Engage in Self Management High Activies Readiness to Engage in Self Management High Activities Anxiety Level Calm Cooperation Cooperative Perception Coherent Does Patient Smoke tobacco or other No substances Smoking Status Former smoker Culture/Restoration/Clinical Case Manager Cultural/Restoration Needs that may affect No Treatment Plan Would you allow our hospital security officer to No meet you for the purpose of spiritual/ emotional support? Clinical Case Manager to contact place of spiritism No WC - Nurse 1 - General Ulcer Measurement Start: 09/07/25 14:02 Freq: Status: Active Protocol: Activity Type Activity Date Activity User E-sign Co-sign Detail Recorded Client Recorded Date Recorded By Document 09/07/25 14:03 [id number] 09/07/25 14:19 Document 09/21/25 10:28 [id number] 09/21/25 10:38 09/07/25 09/21/25 14:03 10:28 Wound Center Nurse 1 #5 Right stratton Superior -Current Size (cm) - Length 0.5 8.5 -Current Size (cm) - Width 0.4 3 -Current Size (cm) - Depth 0.1 0.1 -Total Square Cm 0.20 25.5 -Date of Last Picture (Recall this 09/07/25 09/21/25 field) -Photo Taken Yes Yes -Tunneling No -Undermining/Tunneling No -Circular Undermining No -Exudate Amt Small -Exudate Type Serous -Wound Margin Distinct, Outline Attached -Granulation Amt Medium (34-66%) -Granulation Quality Red -Slough/Fibrin No -Necrosis Amt None Present (0 %) -Structure Exposed N/A -Texture (Gill-wound Skin Appearance) Assessed Friable -Moisture (Gill-wound Skin Appearance) Assessed -Color (Gill-wound Skin Appearance) Assessed Rubor -Temperature (Gill-wound Skin No Abnormality No Abnormality Appearance) (Pt Warm) (Pt Warm) -Tenderness on Palpation (Gill-wound No Skin Appearance) -Ulcer Cleansing Rinsed/ Rinsed/ Irrigated with Irrigated with Saline Saline -Foul Odor after Cleansing No No -Anesthetic Used 5% Lidocaine 4% Lidocaine Gel Solution #4 Right inferior Leg cluster -Current Size (cm) - Length 5.5 3.5 -Current Size (cm) - Width 1.5 1 -Current Size (cm) - Depth 0.1 0.1 -Total Square Cm 8.25 3.5 -Date of Last Picture (Recall this 09/07/25 09/21/25 field) -Photo Taken Yes -Tunneling No -Undermining/Tunneling No -Circular Undermining No -Exudate Amt Small Small -Exudate Type Serosanguineous Serous -Wound Margin Distinct, Outline Attached -Granulation Amt Medium (34-66%) -Granulation Quality Red -Slough/Fibrin No -Texture (Gill-wound Skin Appearance) Assessed Friable -Moisture (Gill-wound Skin Appearance) Assessed -Color (Gill-wound Skin Appearance) Assessed Erythema -Temperature (Gill-wound Skin No Abnormality Appearance) (Pt Warm) -Tenderness on Palpation (Gill-wound No Skin Appearance) -Ulcer Cleansing Rinsed/ Rinsed/ Irrigated with Irrigated with Saline Saline -Foul Odor after Cleansing No -Anesthetic Used 5% Lidocaine 4% Lidocaine Gel Solution #3 Left Hallux, plantar -Current Size (cm) - Length 0.7 0.8 -Current Size (cm) - Width 0.5 0.8 -Current Size (cm) - Depth 0.3 0.1 -Total Square Cm 0.35 0.64 -Date of Last Picture (Recall this 09/07/25 field) -Photo Taken Yes -Tunneling No -Undermining/Tunneling No -Circular Undermining No -Exudate Amt None Present -Wound Margin Distinct, Outline Attached -Granulation Amt Small (1-33%) -Slough/Fibrin Yes -Necrosis Amt Large (67-100%) -Necrotic Tissue Type Eschar -Texture (Gill-wound Skin Appearance) Assessed,Callus -Moisture (Gill-wound Skin Appearance) Assessed Dry/Scaly -Color (Gill-wound Skin Appearance) Assessed -Temperature (Gill-wound Skin No Abnormality Appearance) (Pt Warm) -Tenderness on Palpation (Gill-wound No No Skin Appearance) -Ulcer Cleansing Rinsed/ Rinsed/ Irrigated with Irrigated with Saline Saline -Foul Odor after Cleansing No -Anesthetic Used 5% Lidocaine 4% Lidocaine Gel Solution Lower Limb Edema Present No Right Calf (cm) 47.7 50.5 Right Ankle (cm) 23.2 24.3 Left Calf (cm) 47.5 48 Left Ankle (cm) 23.3 23.5 WC - Nurse 2 - General Ulcer CM Notes Start: 09/07/25 14:02 Freq: Status: Active Protocol: Activity Type Activity Date Activity User E-sign Co-sign Detail Recorded Client Recorded Date Recorded By Document 09/07/25 14:24 [id number] 09/07/25 14:32 Document 09/21/25 11:09 [id number] 09/21/25 11:14 09/07/25 09/21/25 14:24 11:09 Wound Center Nurse 2 #5 Right stratton Superior -Time 14:25 11:09 -Correct Patient Yes Yes -Correct Side, Site, Position Yes Yes -Correct Procedure Yes Yes -Procedure Performed Yes Yes -Type of Procedure Debridement Debridement -Clinical Debridement Subcutaneous Subcutaneous -Tissue Removed Subcutaneous Subcutaneous -Post Debridement (cm) - Length 0.5 5.5 -Post Debridement (cm) - Width 0.5 2.1 -Post Debridement (cm) - Depth 0.1 0.1 -Total Square (Post) (cm) 0.25 11.55 -Area of Debridement (cm) - Length 0.5 5.5 -Area of Debridement (cm) - Width 0.5 2.1 -Total Square (Area) (cm) 0.25 11.55 -Tunneling No No -Undermining/Tunneling No No -Circular Undermining No No -Wound/Ulcer Outcome Not Healed Not Healed -Ulcer Cleansing Rinsed/ Rinsed/ Irrigated with Irrigated with Saline Saline -Foul Odor after Cleansing No No -Bioengineered Tissue No No -Bleeding Controlled with Pressure Pressure -Treatment Response Procedure Procedure Tolerated Well Tolerated Well -Offloading No No -Debridement - Subq, 1st 20sq cm Yes No #4 Right inferior Leg cluster -Time 14:26 11:10 -Correct Patient Yes Yes -Correct Side, Site, Position Yes Yes -Correct Procedure Yes Yes -Procedure Performed Yes Yes -Type of Procedure Debridement Debridement -Clinical Debridement Subcutaneous Subcutaneous -Tissue Removed Subcutaneous Subcutaneous -Post Debridement (cm) - Length 2.0 3.4 -Post Debridement (cm) - Width 1.4 2.0 -Post Debridement (cm) - Depth 0.1 0.1 -Total Square (Post) (cm) 2.80 6.80 -Area of Debridement (cm) - Length 2.0 3.4 -Area of Debridement (cm) - Width 1.4 2.0 -Total Square (Area) (cm) 2.80 6.80 -Tunneling No No -Undermining/Tunneling No No -Circular Undermining No No -Wound/Ulcer Outcome Not Healed Not Healed -Ulcer Cleansing Rinsed/ Irrigated with Saline -Foul Odor after Cleansing No -Bioengineered Tissue No No -Bleeding Controlled with Pressure Pressure -Treatment Response Procedure Procedure Tolerated Well Tolerated Well -Offloading No No -Debridement - Subq, 1st 20sq cm No No #3 Left Hallux, plantar -Time 14:26 11:12 -Correct Patient Yes Yes -Correct Side, Site, Position Yes Yes -Correct Procedure Yes Yes -Procedure Performed Yes Yes -Type of Procedure Debridement Debridement -Clinical Debridement Subcutaneous Subcutaneous -Tissue Removed Subcutaneous Subcutaneous -Post Debridement (cm) - Length 0.7 0.8 -Post Debridement (cm) - Width 0.7 0.5 -Post Debridement (cm) - Depth 0.2 0.2 -Total Square (Post) (cm) 0.49 0.40 -Area of Debridement (cm) - Length 0.7 0.8 -Area of Debridement (cm) - Width 0.7 0.5 -Total Square (Area) (cm) 0.49 0.40 -Tunneling No No -Undermining/Tunneling No No -Circular Undermining No No -Wound/Ulcer Outcome Not Healed Not Healed -Ulcer Cleansing Rinsed/ Rinsed/ Irrigated with Irrigated with Saline Saline -Foul Odor after Cleansing No No -Bioengineered Tissue No No -Bleeding Controlled with Pressure Pressure -Treatment Response Procedure Procedure Tolerated Well Tolerated Well -Offloading No No -Debridement - Subq, 1st 20sq cm No Yes Pain Scale: 0-10 Numeric Is Patient Pain Free? Yes Yes WC - Nurse 3 - General Ulcer D/C NN Start: 09/07/25 14:02 Freq: Status: Active Protocol: Activity Type Activity Date Activity User E-sign Co-sign Detail Recorded Client Recorded Date Recorded By Document 09/07/25 14:52 RB [id number] 09/07/25 14:54 RB Document 09/21/25 11:45 CP [id number] 09/21/25 11:52 CP 09/07/25 09/21/25 14:52 11:45 Wound Care Center Nurse 3 #5 Right stratton Superior -Ulcer Cleansing Rinsed/ Irrigated with Saline -Primary Dressing Applied Aquacel AG 4x4 -Other Dressing bacitracin -Primary Dressing Covered/Secured with Dry Gauze & Dry Gauze & Roll Gauze, Roll Gauze Secured with Tape -Aquacel AG 4x4 1 #4 Right inferior Leg cluster -Primary Dressing Applied Aquacel AG 4x4 -Other Dressing bacitracin -Primary Dressing Covered/Secured with Dry Gauze & Dry Gauze & Roll Gauze, Roll Gauze Secured with Tape -Aquacel AG 4x4 0 #3 Left Hallux, plantar -Ulcer Cleansing Rinsed/ Irrigated with Saline -Primary Dressing Applied AMD Dressing 4x4 -Other Dressing betadine -Primary Dressing Covered/Secured with Dry Gauze, Dry Gauze, Secured with Secured with Tape Tape -Other Covering betadine -AMD Dressing 4x4 1 RLE -Multi-Layered Wrap Application Unna Boot - Right -Unna- Right (Qty applied) 1 BLE -Tubular Bandage Single Layer -Size of Tubigrip Used Size E -Size E ($) 2 Treatment Response Procedure Tolerated Well Pain Scale: 0-10 Numeric Is Patient Pain Free? Yes Yes WC - Visit Discharge Discharge Condition Stable Stable Ambulatory Status Ambulatory Wheelchair Transportation Private Auto Medication Reconcilliation completed & No provided to patient/care provider Clinical Summary of Care Provided Yes Yes Notes: 02 6l NC Assessment/Plan Assessment/Plan (1) Non-pressure chronic ulcer of other part of right lower leg with fat layer exposed: CODE(S): L97.812 - Non-pressure chronic ulcer of other part of right lower leg with fat layer exposed PLAN: Patient was examined and evaluated. All findings were discussed with the patient. All questions were answered to the patient's satisfaction. Excisional debridement down to including subcutaneous tissue with a number 5 mm dermal curette to the right superior full-thickness wound done without incident. Predebridement measurement was 3.0 x 2.0 x 0.1 cm. Postdebridement measurement is 3.5 x 2.1 x 0.1 cm Excisional debridement down to including subcutaneous tissue with a number 5 mm dermal curette to the right inferior full-thickness wound done without incident. Predebridement measurement was 2.8 x 1.8 x 0.1 cm.. Postdebridement measurement is 3.1 x 2.0 x 0.1 cm. Excisional debridement down to and including subcutaneous tissue with a number 5 mm dermal curette to the left full-thickness wound to the hallux done without incident. Predebridement measurement was 0.7 x 0.4 x 0.1 cm. Postdebridement measurement 0.8 x 0.5 x 0.2 cm. The bilateral lower extremities are cleaned and patted dry. Triple ointment antibiotic were applied to the full-thickness wounds to the right leg covered with dry sterile dressing and Tubigrip. The left hallux was dressed with Betadine paint and sterile Band-Aid and the foot and leg were covered with Tubigrip. Educated patient continue daily dressing changes. Educated the patient on importance of checking her feet twice a day applying lotion and continuing strict blood sugar control between 100 to 150 mg/dL. Will plan for surgical intervention to the left hallux consisting of IPJ arthroplasty with delayed primary closure of the full-thickness wound. Risk benefits cussed with patient great detail. Patient will follow-up with Dr. Bourgeois in 1 week (2) Non-pressure chronic ulcer of other part of left foot with fat layer exposed: CODE(S): L97.522 - Non-pressure chronic ulcer of other part of left foot with fat layer exposed (3) Acute painful diabetic polyneuropathy: CODE(S): E11.42 - Type 2 diabetes mellitus with diabetic polyneuropathy (4) Other specified peripheral vascular diseases: CODE(S): I73.89 - Other specified peripheral vascular diseases
[2025-09-26 11:46] VITALS: BP 134/58; PULSE 98; RESP 22; TEMP 36.1; BMI 66.5
[2025-09-28 11:11] VITALS: BP 132/50; PULSE 98; RESP 20; TEMP 36.6; O2SAT 92; BMI 66.5
--- NOTE | 2025-09-28 12:46 | PCM.WC.PN ---
History of Present Illness Date of Service: 09/28/25 Chief Complaint: Non-healing wound left inguinal and vulval area. History of Wound: Surgery 06/09/18 - Surgical preparation left inguinal area and vulval area (involving genitocrural and mons pubis area) with incision and drainage and excisional debridement necrotizing diabetic abscess and partial vulvectomy including deep subcutaneous tissue (264 cm2). Wound care - VAC. Having trouble maintaing a seal. Operative culture - Streptococcus agalactiae, Pevotella bivia, and E. coli. She was discharged home on Doxycyline and Cefadroxil. Encourage nutritional supplementation with protein to help the healing process. Her HgbA1c in the hospital was 10.1. Today the fever denies and fever. States she is eating well. Progress of Wound: Stable full-thickness wound to left great toe with evidence of new full-thickness wounds to the right leg secondary to swelling. Subjective Subjective Patient is a 42-year-old diabetic female presented to clinic today follow-up evaluation of full-thickness wound to right lower extremity as well as left great toe. Patient has left the multilayer compression bandage clean dry and intact to the right lower extremity. She is beginning daily dressing changes to the left great toe. She admits to some drainage to left great toe. She has not been checking her blood sugar as her monitor fell off her arm and she does not have strips or glucometer to check via fingerstick. She denies trauma. Denies constitutional symptoms. No other pedal complaints at this time. Objective Data Objective Data Vital Signs: Vital Signs Temp Pulse Resp BP Pulse Ox O2 Del Method O2 Flow Rate 98 F 98 20 H 132/50 H 92 Nasal Cannula 5 09/28/25 11:11 09/28/25 11:11 09/28/25 11:11 09/28/25 11:11 09/28/25 11:11 09/28/25 11:11 09/28/25 11:11 Oxygen Flow Rate (L/min) 5 Oxygen Delivery Method Nasal Cannula Weight: 181.437 kg Body Mass Index (BMI) 66.5 Physical Exam Narrative Vascular: DP and PT pulses are palpable to the bilateral lower extremity. CFT is brisk. Nonpitting edema appreciated to the bilateral lower extremity. Skin temperature gradient is warm to warm from proximal ankles to distal digits. Evidence of diffuse hemosiderin deposits to the bilateral lower extremity. Neurological: Light touch is intact. Protective station is diminished. Dermatological: Full-thickness wounds to the superior right leg measuring 0.7 x 0.4 x 0.1 cm. Evidence of full-thickness wound to the inferior right leg measuring 2.3 x 0.7 x 0.1 cm. Both wounds are granular nature with mild serous drainage. Full-thickness wound to the left hallux measuring 1.0 x 1.1 x 0.2 cm. Evidence of periwound maceration. Wound base is granular. Culture taken. Excisional debridement down to including subcutaneous tissue with a number 5 mm dermal curette to the right superior full-thickness wound done without incident. Predebridement measurement was 0.6 x 0.3 x 0.1 cm. Postdebridement measurement is 0.7 x 0.4 x 0.1 cm. Excisional debridement down to including subcutaneous tissue with a number 5 mm dermal curette to the right inferior full-thickness wound done without incident. Predebridement measurement was 2.1 x 0.5 x 0.1 cm. Postdebridement measurement is 2.3 x 0.7 x 0.1 cm. Excisional debridement down to and including subcutaneous tissue with a number 5 mm dermal curette to the left full-thickness wound to the hallux done without incident. Predebridement measurement was 0.8 x 0.9 x 0.1 cm. Postdebridement measurement 1.0 x 1.1 x 0.2 cm. Muscle skeletal: Muscle strength 5 and 5 in all quadrants of the bilateral extremity. No pain to palpation to full-thickness wounds about the lower extremity. No pain to calf pressure. Debridement Note Debridement Note Debridement Free Text: Excisional debridement down to including subcutaneous tissue with a number 5 mm dermal curette to the right superior full-thickness wound done without incident. Predebridement measurement was 0.6 x 0.3 x 0.1 cm. Postdebridement measurement is 0.7 x 0.4 x 0.1 cm. Excisional debridement down to including subcutaneous tissue with a number 5 mm dermal curette to the right inferior full-thickness wound done without incident. Predebridement measurement was 2.1 x 0.5 x 0.1 cm. Postdebridement measurement is 2.3 x 0.7 x 0.1 cm. Excisional debridement down to and including subcutaneous tissue with a number 5 mm dermal curette to the left full-thickness wound to the hallux done without incident. Predebridement measurement was 0.8 x 0.9 x 0.1 cm. Postdebridement measurement 1.0 x 1.1 x 0.2 cm. Post-Debridement Measurements and Additional Note: Post-Debridement Measurements/Treatment WC - Nurse 1 - General Ulcer Assessment Start: 09/07/25 14:02 Freq: Status: Active Protocol: STEPHANIE Activity Type Activity Date Activity User E-sign Co-sign Detail Recorded Client Recorded Date Recorded By Document 09/07/25 14:03 GM [id number] 09/07/25 14:19 GM Document 09/21/25 10:28 CP [id number] 09/21/25 10:38 CP Document 09/26/25 11:46 TS [id number] 09/26/25 11:52 TS Document 09/28/25 11:11 MT [id number] 09/28/25 11:25 MT 09/07/25 09/21/25 09/26/25 14:03 10:28 11:46 - Today's Visit Information Type of service Initial Visit Follow-up Visit Nurse-only (Physician/SUSPECT ARTIST Visit ) Arrival Mode Wheelchair Wheelchair Wheelchair Transfer Assistance None Accompanied by Patient Identification Verified (Name & Yes Yes Yes ) Patient Requires Transmission-Based No No Precautions Safety Precautions Fall Prevention Height and Weight Height 5 ft 5 in Weight 181.437 kg Weight in Pounds 400.0 lbs Weight Measurement Method Stated by Patient Body Mass Index (BMI) 66.5 66.5 66.5 BMI Classification Obese Obese Obese Vital Signs Temperature (97.8 F-99.1 F) 97.5 F L 99 F 96.9 F L Temperature Source Temporal Temporal Temporal Pulse Rate (60-100) 96 105 H 98 Pulse Location Monitor Monitor Monitor Respiratory Rate (12-18) 18 18 22 H Respiratory rate source Observation Observation Observation Pulse Oximetry Oxygen Delivery Method Room Air Nasal Cannula Nasal Cannula O2 L/MIN (L/min) 4 5 Blood Pressure (90/60-120/80) 163/86 H 149/86 H 134/58 H Blood Pressure Mean (mm Hg) 111 107 83 Source Monitor Monitor Monitor Position Sitting Sitting Blood Pressure Location Left Arm Right Forearm History Since Last Visit- (Skip if this is Patient's initial visit) Have you changed medications since your No last visit? Any new allergies or adverse reactions No Had a fall/change in ADL's that may No increase risk of falls Signs or symptoms of abuse and/or No neglect since last visit Have you been in the hospital since your No last visit? Has dressing in place as prescribed Yes Has compression in place as prescribed No Has offloadiing in place as prescribed N/A Experienced any changes in pain level or No management Left Footwear Regular Shoe Right Footwear Regular Shoe Pain Scale: 0-10 Numeric Is Patient Pain Free? Yes Yes No BLE -Description Sharp -Intensity 7 -Duration (hours) Chronic -Pain Behavior Withdrawal from Touch -Pain Aggravating Factors Exercise/ Activity, Walking -Alleviating Factors/Interventions Will continue to monitor Lower Extremity Assessment/ Foot Assessment/ Toe Nail Assessment Right -Hair Growth on Legs No -Hair Growth on Toes No -Temperature of Extremity Warm -Capillary Refill Less than 3 Seconds -Other Deformity No -Prior Foot Ulcer No -Charcot Joint No -Prior Amputation No -Thick Yes -Discolored Yes -Deformed Yes -Improper Length & Hygeine Yes Left -Hair Growth on Legs No -Hair Growth on Toes No -Temperature of Extremity Warm -Capillary Refill Less than 3 Seconds -Other Deformity No -Prior Foot Ulcer No -Charcot Joint No -Prior Amputation No -Thick Yes -Discolored Yes -Deformed Yes -Improper Length & Hygeine Yes Teaching Assessment Preferences Verbal,Written Barriers to Learning None Readiness To Learn Excellent Willingness to Engage in Self Management High Activies Readiness to Engage in Self Management High Activities Anxiety Level Calm Cooperation Cooperative Perception Coherent Does Patient Smoke tobacco or other No substances Smoking Status Former smoker Culture/Jainism/Food Technician Cultural/Jainism Needs that may affect No Treatment Plan Would you allow our hospital radiology transcriptionist to No meet you for the purpose of spiritual/ emotional support? Food Technician to contact place of scientology No 09/28/25 11:11 WC - Today's Visit Information Type of service Follow-up Visit (Physician/SUSPECT ARTIST ) Arrival Mode Ambulatory, Wheelchair Transfer Assistance Accompanied by self Patient Identification Verified (Name & Yes ) Patient Requires Transmission-Based Precautions Safety Precautions Fall Prevention Height and Weight Height Weight Weight in Pounds Weight Measurement Method Body Mass Index (BMI) 66.5 BMI Classification Obese Vital Signs Temperature (97.8 F-99.1 F) 98 F Temperature Source Temporal Pulse Rate (60-100) 98 Pulse Location Monitor Respiratory Rate (12-18) 20 H Respiratory rate source Monitor Pulse Oximetry 92 Oxygen Delivery Method Nasal Cannula O2 L/MIN (L/min) 5 Blood Pressure (90/60-120/80) 132/50 H Blood Pressure Mean (mm Hg) 77 Source Monitor Position Sitting Blood Pressure Location Right Arm History Since Last Visit- (Skip if this is Patient's initial visit) Have you changed medications since your last visit? Any new allergies or adverse reactions Had a fall/change in ADL's that may increase risk of falls Signs or symptoms of abuse and/or neglect since last visit Have you been in the hospital since your last visit? Has dressing in place as prescribed Yes Has compression in place as prescribed Yes Has offloadiing in place as prescribed Yes Experienced any changes in pain level or Yes management Left Footwear Regular Shoe Right Footwear Regular Shoe Pain Scale: 0-10 Numeric Is Patient Pain Free? Yes BLE -Description -Intensity -Duration (hours) -Pain Behavior -Pain Aggravating Factors -Alleviating Factors/Interventions Lower Extremity Assessment/ Foot Assessment/ Toe Nail Assessment Right -Hair Growth on Legs -Hair Growth on Toes -Temperature of Extremity -Capillary Refill -Other Deformity -Prior Foot Ulcer -Charcot Joint -Prior Amputation -Thick -Discolored -Deformed -Improper Length & Hygeine Left -Hair Growth on Legs -Hair Growth on Toes -Temperature of Extremity -Capillary Refill -Other Deformity -Prior Foot Ulcer -Charcot Joint -Prior Amputation -Thick -Discolored -Deformed -Improper Length & Hygeine Teaching Assessment Preferences Barriers to Learning Readiness To Learn Willingness to Engage in Self Management Activies Readiness to Engage in Self Management Activities Anxiety Level Cooperation Perception Does Patient Smoke tobacco or other substances Smoking Status Culture/Jainism/Food Technician Cultural/Jainism Needs that may affect Treatment Plan Would you allow our hospital radiology transcriptionist to meet you for the purpose of spiritual/ emotional support? Food Technician to contact place of scientology WC - Nurse 1 - General Ulcer Measurement Start: 09/07/25 14:02 Freq: Status: Active Protocol: Activity Type Activity Date Activity User E-sign Co-sign Detail Recorded Client Recorded Date Recorded By Document 09/07/25 14:03 [id number] 09/07/25 14:19 Document 09/21/25 10:28 CP [id number] 09/21/25 10:38 CP Document 09/28/25 11:11 MT [id number] 09/28/25 11:25 NC 09/07/25 09/21/25 09/28/25 14:03 10:28 11:11 Wound Center Nurse 1 #5 Right strat[place] Superior -Current Size (cm) - Length 0.5 8.5 0.1 -Current Size (cm) - Width 0.4 3 0.1 -Current Size (cm) - Depth 0.1 0.1 0.1 -Total Square Cm 0.20 25.5 0.01 -Date of Last Picture (Recall this 09/07/25 09/21/25 09/28/25 field) -Photo Taken Yes Yes Yes -Tunneling No No -Undermining/Tunneling No No -Circular Undermining No No -Exudate Amt Small Small -Exudate Type Serous Serous -Wound Margin Distinct, Flat & Intact Outline Attached -Granulation Amt Medium (34-66%) Large (67-100%) -Granulation Quality Red Pale,[place] -Slough/Fibrin No No -Necrosis Amt None Present (0 None Present (0 %) %) -Structure Exposed N/A -Texture (Gill-wound Skin Appearance) Assessed Friable Assessed -Moisture (Gill-wound Skin Appearance) Assessed Assessed -Color (Gill-wound Skin Appearance) Assessed Rubor Assessed -Temperature (Gill-wound Skin No Abnormality No Abnormality No Abnormality Appearance) (Pt Warm) (Pt Warm) (Pt Warm) -Tenderness on Palpation (Gill-wound No No Skin Appearance) -Ulcer Cleansing Rinsed/ Rinsed/ Soap and Water Irrigated with Irrigated with Saline Saline -Foul Odor after Cleansing No No No -Anesthetic Used 5% Lidocaine 4% Lidocaine 5% Lidocaine Gel Solution Gel #4 Right inferior Leg cluster -Current Size (cm) - Length 5.5 3.5 0.1 -Current Size (cm) - Width 1.5 1 0.1 -Current Size (cm) - Depth 0.1 0.1 0.1 -Total Square Cm 8.25 3.5 0.01 -Date of Last Picture (Recall this 09/07/25 09/21/25 09/28/25 field) -Photo Taken Yes Yes -Tunneling No No -Undermining/Tunneling No No -Circular Undermining No No -Exudate Amt Small Small Small -Exudate Type Serosanguineous Serous Sanguineous -Wound Margin Distinct, Flat & Intact Outline Attached -Granulation Amt Medium (34-66%) -Granulation Quality Red Pale,[place] -Slough/Fibrin No -Necrosis Amt None Present (0 %) -Texture (Gill-wound Skin Appearance) Assessed Friable Assessed -Moisture (Gill-wound Skin Appearance) Assessed Assessed -Color (Gill-wound Skin Appearance) Assessed Erythema Assessed -Temperature (Gill-wound Skin No Abnormality No Abnormality Appearance) (Pt Warm) (Pt Warm) -Tenderness on Palpation (Gill-wound No No Skin Appearance) -Ulcer Cleansing Rinsed/ Rinsed/ Soap and Water Irrigated with Irrigated with Saline Saline -Foul Odor after Cleansing No No -Anesthetic Used 5% Lidocaine 4% Lidocaine 5% Lidocaine Gel Solution Gel #3 Left Hallux, plantar -Current Size (cm) - Length 0.7 0.8 1.1 -Current Size (cm) - Width 0.5 0.8 0.7 -Current Size (cm) - Depth 0.3 0.1 0.4 -Total Square Cm 0.35 0.64 0.77 -Date of Last Picture (Recall this 09/07/25 09/28/25 field) -Photo Taken Yes Yes -Tunneling No No -Undermining/Tunneling No Yes -Undermining/Tunneling Starts (O'clock 3 ) -Undermining/Tunneling Ends (O'clock) 6 -Circular Undermining No No -Exudate Amt None Present Medium -Exudate Type Sanguineous -Wound Margin Distinct, Thickened & Outline Rolled Under Attached -Granulation Amt Small (1-33%) Large (67-100%) -Granulation Quality Pale,[place] -Slough/Fibrin Yes -Necrosis Amt Large (67-100%) Small (1-33%) -Necrotic Tissue Type Eschar Adherent Slough -Texture (Gill-wound Skin Appearance) Assessed,Callus Assessed,Callus ,Crepitus -Moisture (Gill-wound Skin Appearance) Assessed Dry/Scaly Assessed -Color (Gill-wound Skin Appearance) Assessed Assessed -Temperature (Gill-wound Skin No Abnormality No Abnormality Appearance) (Pt Warm) (Pt Warm) -Tenderness on Palpation (Gill-wound No No No Skin Appearance) -Ulcer Cleansing Rinsed/ Rinsed/ Soap and Water Irrigated with Irrigated with Saline Saline -Foul Odor after Cleansing No No -Anesthetic Used 5% Lidocaine 4% Lidocaine 5% Lidocaine Gel Solution Gel Lower Limb Edema Present No Right Calf (cm) 47.7 50.5 Right Ankle (cm) 23.2 24.3 Left Calf (cm) 47.5 48 Left Ankle (cm) 23.3 23.5 WC - Nurse 2 - General Ulcer CM Notes Start: 09/07/25 14:02 Freq: Status: Active Protocol: Activity Type Activity Date Activity User E-sign Co-sign Detail Recorded Client Recorded Date Recorded By Document 09/07/25 14:24 [id number] 09/07/25 14:32 Document 09/21/25 11:09 [id number] 09/21/25 11:14 Document 09/28/25 12:00 [id number] 09/28/25 12:05 09/07/25 09/21/25 09/28/25 14:24 11:09 12:00 Wound Center Nurse 2 #5 Right strat[place] Superior -Time 14:25 11:09 12:01 -Correct Patient Yes Yes Yes -Correct Side, Site, Position Yes Yes Yes -Correct Procedure Yes Yes Yes -Procedure Performed Yes Yes Yes -Type of Procedure Debridement Debridement Debridement -Clinical Debridement Subcutaneous Subcutaneous Subcutaneous -Tissue Removed Subcutaneous Subcutaneous Subcutaneous -Post Debridement (cm) - Length 0.5 5.5 0.7 -Post Debridement (cm) - Width 0.5 2.1 0.4 -Post Debridement (cm) - Depth 0.1 0.1 0.1 -Total Square (Post) (cm) 0.25 11.55 0.28 -Area of Debridement (cm) - Length 0.5 5.5 0.7 -Area of Debridement (cm) - Width 0.5 2.1 0.4 -Total Square (Area) (cm) 0.25 11.55 0.28 -Tunneling No No No -Undermining/Tunneling No No No -Circular Undermining No No No -Wound/Ulcer Outcome Not Healed Not Healed Not Healed -Ulcer Cleansing Rinsed/ Rinsed/ Rinsed/ Irrigated with Irrigated with Irrigated with Saline Saline Saline -Foul Odor after Cleansing No No No -Bioengineered Tissue No No No -Bleeding Controlled with Pressure Pressure Pressure -Treatment Response Procedure Procedure Procedure Tolerated Well Tolerated Well Tolerated Well -Offloading No No No -Debridement - Subq, 1st 20sq cm Yes No No #4 Right inferior Leg cluster -Time 14:26 11:10 12:02 -Correct Patient Yes Yes Yes -Correct Side, Site, Position Yes Yes Yes -Correct Procedure Yes Yes Yes -Procedure Performed Yes Yes Yes -Type of Procedure Debridement Debridement Debridement -Clinical Debridement Subcutaneous Subcutaneous Subcutaneous -Tissue Removed Subcutaneous Subcutaneous Subcutaneous -Post Debridement (cm) - Length 2.0 3.4 2.3 -Post Debridement (cm) - Width 1.4 2.0 0.7 -Post Debridement (cm) - Depth 0.1 0.1 0.1 -Total Square (Post) (cm) 2.80 6.80 1.61 -Area of Debridement (cm) - Length 2.0 3.4 2.3 -Area of Debridement (cm) - Width 1.4 2.0 0.7 -Total Square (Area) (cm) 2.80 6.80 1.61 -Tunneling No No No -Undermining/Tunneling No No No -Circular Undermining No No No -Wound/Ulcer Outcome Not Healed Not Healed Not Healed -Ulcer Cleansing Rinsed/ Rinsed/ Irrigated with Irrigated with Saline Saline -Foul Odor after Cleansing No No -Bioengineered Tissue No No No -Bleeding Controlled with Pressure Pressure Pressure -Treatment Response Procedure Procedure Procedure Tolerated Well Tolerated Well Tolerated Well -Offloading No No No -Debridement - Subq, 1st 20sq cm No No No #3 Left Hallux, plantar -Time 14: 11:12 12:05 -Correct Patient Yes Yes Yes -Correct Side, Site, Position Yes Yes Yes -Correct Procedure Yes Yes Yes -Procedure Performed Yes Yes Yes -Type of Procedure Debridement Debridement Debridement -Clinical Debridement Subcutaneous Subcutaneous Subcutaneous -Tissue Removed Subcutaneous Subcutaneous Subcutaneous -Post Debridement (cm) - Length 0.7 0.8 1.0 -Post Debridement (cm) - Width 0.7 0.5 1.1 -Post Debridement (cm) - Depth 0.2 0.2 0.2 -Total Square (Post) (cm) 0.49 0.40 1.10 -Area of Debridement (cm) - Length 0.7 0.8 1.0 -Area of Debridement (cm) - Width 0.7 0.5 1.1 -Total Square (Area) (cm) 0.49 0.40 1.10 -Tunneling No No No -Undermining/Tunneling No No No -Circular Undermining No No No -Wound/Ulcer Outcome Not Healed Not Healed Not Healed -Ulcer Cleansing Rinsed/ Rinsed/ Rinsed/ Irrigated with Irrigated with Irrigated with Saline Saline Saline -Foul Odor after Cleansing No No No -Bioengineered Tissue No No No -Bleeding Controlled with Pressure Pressure Pressure -Treatment Response Procedure Procedure Procedure Tolerated Well Tolerated Well Tolerated Well -Offloading No No No -Debridement - Subq, 1st 20sq cm No Yes Yes Pain Scale: 0-10 Numeric Is Patient Pain Free? Yes Yes Yes WC - Nurse 3 - General Ulcer D/C NN Start: 09/07/25 14:02 Freq: Status: Active Protocol: Activity Type Activity Date Activity User E-sign Co-sign Detail Recorded Client Recorded Date Recorded By Document 09/07/25 14:52 RB [id number] 09/07/25 14:54 RB Document 09/21/25 11:45 CP [id number] 09/21/25 11:52 CP Document 09/26/25 11:46 TS [id number] 09/26/25 11:52 TS Edit Result 09/26/25 11:46 TS (1) [id number] 09/26/25 12:29 TS Document 09/28/25 12:32 MT [id number] 09/28/25 12:34 MT (1) #5 Right strat[place] Superior - Ulcer Cleansing => Soap and Water - Primary Dressing Applied => Aquacel AG 4x4 - Aquacel AG 4x4 => 1 #4 Right inferior Leg cluster - Ulcer Cleansing => Soap and Water - Primary Dressing Applied => Aquacel AG 4x4 - Aquacel AG 4x4 => 0 LLE - Lotion applied to leg before => Yes compression wrap - Tubular Bandage => Single Layer - Size of Tubigrip Used => Size D - Size D ($) => 1 RLE - Lotion applied to leg before => No compression wrap - Multi-Layered Wrap Application => Unna Boot - Right - Unna- Right (Qty applied) => 1 Discharge Condition => Stable Ambulatory Status => Ambulatory, => Wheelchair Transportation => Private Auto Medication Reconcilliation completed & => No provided to patient/care provider Clinical Summary of Care Provided => Yes 09/07/25 09/21/25 09/26/25 14:52 11:45 11:46 Wound Care Center Nurse 3 #5 Right strat[place] Superior -Ulcer Cleansing Rinsed/ Soap and Water Irrigated with Saline -Primary Dressing Applied Aquacel AG 4x4 Aquacel AG 4x4 -Other Dressing bacitracin -Primary Dressing Covered/Secured with Dry Gauze & Dry Gauze & Roll Gauze, Roll Gauze Secured with Tape -Aquacel AG 4x4 1 1 #4 Right inferior Leg cluster -Ulcer Cleansing Soap and Water -Primary Dressing Applied Aquacel AG 4x4 Aquacel AG 4x4 -Other Dressing bacitracin -Primary Dressing Covered/Secured with Dry Gauze & Dry Gauze & Roll Gauze, Roll Gauze Secured with Tape -Aquacel AG 4x4 0 0 #3 Left Hallux, plantar -Ulcer Cleansing Rinsed/ Irrigated with Saline -Primary Dressing Applied AMD Dressing 4x4 -Other Dressing betadine -Primary Dressing Covered/Secured with Dry Gauze, Dry Gauze, Secured with Secured with Tape Tape -Other Covering betadine -AMD Dressing 4x4 1 -Wound Comment(s) LLE -Lotion applied to leg before Yes compression wrap -Tubular Bandage Single Layer -Size of Tubigrip Used Size D -Size D ($) 1 RLE -Lotion applied to leg before No compression wrap -Multi-Layered Wrap Application Unna Boot - Unna Boot - Right Right -Stockings -Unna- Right (Qty applied) 1 1 -Multi-Layer Compression Right (Qty applied) BLE -Tubular Bandage Single Layer -Size of Tubigrip Used Size E -Size E ($) 2 Treatment Response Procedure Tolerated Well Pain Scale: 0-10 Numeric Is Patient Pain Free? Yes Yes No BLE -Description Sharp -Intensity 7 -Duration (hours) Chronic -Pain Behavior Withdrawal from Touch -Pain Aggravating Factors Exercise/ Activity, Walking -Alleviating Factors/Interventions Will continue to monitor WC - Visit Discharge Discharge Condition Stable Stable Stable Ambulatory Status Ambulatory Wheelchair Ambulatory, Wheelchair Transportation Private Auto Private Auto Medication Reconcilliation completed & No No provided to patient/care provider Clinical Summary of Care Provided Yes Yes Yes Notes: 02 6l NC 09/28/25 12:32 Wound Care Center Nurse 3 #5 Right strat[place] Superior -Ulcer Cleansing -Primary Dressing Applied Aquacel AG 4x4 -Other Dressing -Primary Dressing Covered/Secured with Dry Gauze, Secured with Tape -Aquacel AG 4x4 1 #4 Right inferior Leg cluster -Ulcer Cleansing -Primary Dressing Applied -Other Dressing -Primary Dressing Covered/Secured with -Aquacel AG 4x4 #3 Left Hallux, plantar -Ulcer Cleansing -Primary Dressing Applied -Other Dressing -Primary Dressing Covered/Secured with Dry Gauze & Roll Gauze, Secured with Tape -Other Covering -AMD Dressing 4x4 -Wound Comment(s) betadine LLE -Lotion applied to leg before compression wrap -Tubular Bandage -Size of Tubigrip Used -Size D ($) RLE -Lotion applied to leg before compression wrap -Multi-Layered Wrap Application Multi-Layer Comp - Right ($ ) -Stockings Yes -Unna- Right (Qty applied) -Multi-Layer Compression Right (Qty 1 applied) BLE -Tubular Bandage -Size of Tubigrip Used -Size E ($) Treatment Response Pain Scale: 0-10 Numeric Is Patient Pain Free? Yes BLE -Description -Intensity -Duration (hours) -Pain Behavior -Pain Aggravating Factors -Alleviating Factors/Interventions WC - Visit Discharge Discharge Condition Ambulatory Status Transportation Medication Reconcilliation completed & provided to patient/care provider Clinical Summary of Care Provided Notes: Assessment/Plan Assessment/Plan (1) Non-pressure chronic ulcer of other part of right lower leg with fat layer exposed: CODE(S): L97.812 - Non-pressure chronic ulcer of other part of right lower leg with fat layer exposed PLAN: Patient was examined and evaluated. All findings were discussed with the patient. All questions were answered to the patient's satisfaction. Excisional debridement down to including subcutaneous tissue with a number 5 mm dermal curette to the right superior full-thickness wound done without incident. Predebridement measurement was 0.6 x 0.3 x 0.1 cm. Postdebridement measurement is 0.7 x 0.4 x 0.1 cm. Excisional debridement down to including subcutaneous tissue with a number 5 mm dermal curette to the right inferior full-thickness wound done without incident. Predebridement measurement was 2.1 x 0.5 x 0.1 cm. Postdebridement measurement is 2.3 x 0.7 x 0.1 cm. Excisional debridement down to and including subcutaneous tissue with a number 5 mm dermal curette to the left full-thickness wound to the hallux done without incident. Predebridement measurement was 0.8 x 0.9 x 0.1 cm. Postdebridement measurement 1.0 x 1.1 x 0.2 cm. The bilateral lower extremities are cleaned and patted dry. Triple ointment antibiotic were applied to the full-thickness wounds to the right leg covered with dry sterile dressing and 3M multilayer compression bandage. The left hallux was dressed with Betadine paint and sterile Band-Aid and the foot and leg were covered with Tubigrip. Educated patient continue daily dressing changes. Culture was taken of the left hallux and the patient will be placed on antibiotics with a culture and sensitivity return. Patient was contacted by my office regarding surgical intervention consisting of IPJ arthroplasty and delayed primary closure to left great toe. Continued to discuss all risk and benefits with the patient. We will begin authorization through insurance for surgical intervention. Educated the patient to reach out to her primary doctor for test strips and glucometer. Patient will follow-up with Dr. Bourgeois in 1 week (2) Non-pressure chronic ulcer of other part of left foot with fat layer exposed: CODE(S): L97.522 - Non-pressure chronic ulcer of other part of left foot with fat layer exposed (3) Acute painful diabetic polyneuropathy: CODE(S): E11.42 - Type 2 diabetes mellitus with diabetic polyneuropathy (4) Other specified peripheral vascular diseases: CODE(S): I73.89 - Other specified peripheral vascular diseases
--- NOTE | 2025-09-29 11:39 | WC ---
PHOTO-LEFT HALLUX PLANTAR 09/28/25
--- NOTE | 2025-09-29 11:43 | WC ---
PHOTO-LEFT HALLUX PLANTAR 09/28/25
--- NOTE | 2025-09-29 11:44 | WC ---
PHOTO-RIGHT SUP MAC/RIGHT INF CLUSTER 09/28/25
--- NOTE | 2025-09-29 11:47 | WC ---
PHOTO-RIGHT INF LEG CLUSTER 09/28/25
--- NOTE | 2025-09-29 11:49 | WC ---
PHOTO-RIGHT MAC 09/28/25
== END 2025-09-30 23:59 | disposition home or self-care (01) ==
LOC: WC 11:15
PROVIDERS: PCP Family Medicine; Referring Provider Podiatrist Foot & Ankle Surgery; Visit Provider Podiatrist Foot & Ankle Surgery
DX: E11.621 Type 2 diabetes mellitus with foot ulcer (principal); E11.622 Type 2 diabetes mellitus with other skin ulcer; L97.812 Non-pressure chronic ulcer of other part of right lower leg with fat layer exposed; L97.522 Non-pressure chronic ulcer of other part of left foot with fat layer exposed; I11.0 Hypertensive heart disease with heart failure; I50.32 Chronic diastolic (congestive) heart failure; J44.9 Chronic obstructive pulmonary disease, unspecified; E11.42 Type 2 diabetes mellitus with diabetic polyneuropathy; E11.51 Type 2 diabetes mellitus with diabetic peripheral angiopathy without gangrene; Z87.891 Personal history of nicotine dependence; Z79.84 Long term (current) use of oral hypoglycemic drugs; D64.9 Anemia, unspecified; E78.5 Hyperlipidemia, unspecified; Z79.85 Long-term (current) use of injectable non-insulin antidiabetic drugs; Z86.711 Personal history of pulmonary embolism; K21.9 Gastro-esophageal reflux disease without esophagitis; Z86.14 Personal history of Methicillin resistant Staphylococcus aureus infection; Z90.49 Acquired absence of other specified parts of digestive tract
CPT/HCPCS: 11042; 29580; 29581; 87070; 87075; 87077; 87186; 87205; 97802; 99214; G0463

== ENCOUNTER 2025-10-28 01:42 | Emergency (ER) | payer MEDICARE, MEDICAID, SELFPAY ==
[2025-10-28 01:42] VITALS: BP 152/73; PULSE 91; RESP 22; TEMP 36.9; O2SAT 98; BMI 71.0
--- NOTE | 2025-10-28 02:07 | EKG12_ITS ---
Test Reason : CP Blood Pressure : */* mmHG Vent. Rate : 94 BPM Atrial Rate : 94 BPM P-R Int : 156 ms QRS Dur : 84 ms QT Int : 358 ms P-R-T Axes : 62 -4 64 degrees QTcB Int : 447 ms Normal sinus rhythm Normal ECG Confirmed by KELVIN MARCUS ([id number]), supervising editor trailer RANDI BROWNLEE ([id number]) on 10/31/2025 6:34:12 AM Referred By: Confirmed By: KELVIN MARCUS
--- NOTE | 2025-10-28 02:10 | RAD_ITS ---
PROCEDURE: CHEST 1 VIEW (PORTABLE) 10/28/2025 REASON FOR EXAM: CHEST PAIN TECHNIQUE: Frontal view of the chest. COMPARISON: 08/16/2025 FINDINGS: Stable cardiomegaly and pulmonary hilar vascular congestion. No focal consolidation. No effusion. No pneumothorax. No acute ribs abnormalities. RAD/Chest 1 View (Portable) IMPRESSION: No acute pulmonary process. Stable cardiomegaly and pulmonary hilar vascular congestion Reading [facility] [id number]
[2025-10-28 02:22] LABS: Hematocrit 34.6 % (37-47); Hemoglobin 10.9 g/dL (12.0-15.0); Immature Granulocytes Count 0.100 X10^3/uL (0.0-0.0); Mean Corp Hgb Conc 31.5 g/dL (32-36); Mean Corpuscular Volume 88.0 fL (81-99); Mean Platelet Vol. 10.0 fl (6.2-12.0); NRBC Flagged by Analyzer 0 % (0-5); Platelet Count 251 K/mm3 (150-450); RBC Distribution Width CV 13.6 % (11.6-14.6); RBC Distribution Width SD 43.6 fl (35.1-43.9); Red Blood Count 3.93 M/mm3 (4.2-5.4); White Blood Count 8.8 K/mm3 (4.4-11.0)
--- OUTSIDE RECORDS SUMMARY | 2025-10-28 02:37 | XMS RPT_ITS | CCD ---
Author Organization [facility] Care Team Providers Care Paralegal Supervisor Name Role Phone Panfilo Oreilly MD Primary Care Provider Shreya Mccray Unavailable Berlin Dumont Unavailable Brandee Cotter ([facility]) Unavailable Berlin Dumont Unavailable [facility], Robert Unavailable Dr. Tino Oreilly Primary Care Provider [phone] Dr. Thomas Garcia Emergency Provider Dr. Mihai Chu Admit Provider Dr. Mihai Chu Attending Provider Dr. Mihai Chu Other Provider Dr. Belem Aponte Attending Provider Dr. Belem Aponte Other Provider Dr. Cody Gonzalez Other Provider Dr. Tino Oreilly Referring Provider Dale PAINTER SET, PAINTER SET-C Nelly Attending Provider Dale PAINTER SET, PAINTER SET-C Nelly Referring Provider Dale PAINTER SET, PAINTER SET-C Nelly Other Provider Dr. Berlin Dumont Attending Provider Shreya Mccray MD Unavailable Panfilo Oreilly MD Primary Care Provider Shreya Mccray MD Unavailable Berlin Dumont Unavailable Brandee Cotter (Entry Manager) Unavailable Berlin Dumont Unavailable [facility], Robert Unavailable Panfilo Oreilly MD Primary Care Provider Shreya Mccray MD Unavailable Berlin Dumont Unavailable Berlin Dumont Unavailable [facility], Robert Unavailable Dr. Tino Oreilly Primary Care Provider Dr. Rupert Pitts Emergency Provider Dr. Mihai Chu Admit Provider Dr. Mihai Chu Attending Provider Dr. Mihai Chu Other Provider Dr. Shelbi Eubanks Attending Provider Dr. Shelbi Eubanks Other Provider Panfilo Oreilly MD Primary Care Provider Shreya Mccray MD Unavailable Berlin Dumont Unavailable Brandee Cotter (Entry Manager) Unavailable Berlin Dumont Unavailable [facility], Robert Unavailable Dr. Tino Oreilly Primary Care Provider Dr. Rupert Pitts Emergency Provider [phone] Dr. Mihai Chu Admit Provider Dr. Mihai Chu Attending Provider Dr. Mihai Chu Other Provider Dr. Shelbi Eubanks Attending Provider Kaylenerich creekzuri, Dr. Mario Other Provider PANFILO ORELILY Referring Unavailab PANFILO Hooker Primary Care Unavailab Dr. Irina Kee Emergency Provider Dr. Chris Gillit Provider Dr. Chris Gill Attending Provider Dr. Chris Gill Other Provider Dr. Liam Wilkes Attending Provider Dr. Liam Wilkes Other Provider Czarniecki [facility], Brissa Unavailable Keo RN, Mimi Unavailable Unavailable Keo RN, Mimi Unavailable Unavailable Elmer RN, Raquel Unavailable UnavailDr. Tino Huntley Primary Care Provider Dr. Irina Quintero Emergency Provider Dr. Chris Gill Admit Provider Dr. Chris Gill Attending Provider Dr. Chris Gill Other Provider Dr. Liam Wilkes Attending Provider Dr. Liam Wilkes Other Provider Jose DRAINAGE INSPECTOR.BLOCK SAWYER, Dianne Unavailable PANFILO OREILLY Primary Care Unavailab PANFILO Hooker Primary Care Unavailab GILDA Calle Admitting Unavailable MEGHAN JOHNSON Attending Unavailable CONRADO PUTNAM Consulting Unavail able PANFILO OREILLY Primary Care Unavailab le ZACKERY LEBLANC Admitting Unavailable MEGHAN JOHNSON Attending Unavailable WALTER YOUNG Consulting Unavailable ZACKERY LEBLANC Referring Unavailable PANFILO OREILLY Primary Care Unavailab CODY Grove Admitting Unavailable MEGHAN JOHNSON Attending Unavailable PANFILO OREILLY Primary Care Unavailab wei Borges [facility], Annie Unavailable Son VENTURA, Carlos Unavailable Panfilo Oreilly MD Unavailable Kendra VENTURA, Bharat Unavailable Jose DEMPSEY.BLOCK SAWYER, Dianne Unavailable Panfilo Oreilly MD Unavailable Dr. Tino Oreilly Primary Care Provider [phone] Dr. Irina Quintero Emergency Provider Dr. Chris Gill Admit Provider Dr. Chris Gill Attending Provider Dr. Chris Gill Other Provider Dr. Liam Wilkes Attending Provider Dr. Liam Wilkes Other Provider Dr. Jozef Kaiser Emergency Provider Dr. Faraz Lange Admit Provider Dr. Faraz Lange Attending Provider Dr. Faraz Lange Other Provider Dr. Berlin Dumont Other Provider Dr. Ace Sanders Other Provider Dr. Fadi Box Attending Provider Dr. Fadi Box Other Provider Dr. Jarrett Villalobos Other Provider Unavailab wei Hunter PAINTER SET, PAINTER SET-C Nelly Other Provider Dr. Ace Sanders Attending Provider Dr. Ling Neville Other Provider Dr. Ling Neville Attending Provider Panfilo Oreilly MD Unavailable Ling Neville MD Unavailable Kendra VENTURA, Bharat Unavailable Berlin Dumont Unavailable Berlin Dumont Unavailable [facility], Robert Unavailable Panfilo Oreilly MD Unavailable Chris Gill Unavailable Kendra RN, Bharat Unavailable Chris Gill MD Unavailable Brandee Cotter ([facility]) Unavailable Kendra VENTURA, Bharat Unavailable Ling Neville MD Unavailable Shreya Mccray MD Unavailable Dr. Tnio Oreilly Primary Care Provider Dr. Deejay Ornelas Emergency Provider Dr. Chris Gill Admit Provider Dr. Chris Gill Other Provider Dr. Belem Aponte Attending Provider Dr. Belem Aponte Other Provider Dr. Audi Gamino Attending Provider Dr. Irina Quintero Emergency Provider Dr. Liam Wilkes Admit Provider Dr. Liam Wilkes Attending Provider Dr. Liam Wilkes Other Provider Panfilo Oreilly MD Primary Care Provider Dr. Tino Oreilly Primary Care Provider [phone] Dr. Belem Aponte Attending Provider Dr. Belem Aponte Other Provider Dr. Tino Oreilly Primary Care Provider [phone] Dr. Irina Quintero Emergency Provider Dr. Liam Wilkes Admit Provider Dr. Liam Wilkes Attending Provider Dr. Liam Wilkes Other Provider Dr. Belem Aponte Attending Provider Dr. Belem Aponte Other Provider [facility], Annie Unavailable Son RN, Carlos Unavailable Kendra RN, Bharat Unavailable Kendra RN, Bharat Unavailable Panfilo Oreilly MD Primary Care Provider Berlin Dumont MD Unavailable Brandee Cotter CNP (Entry Manager) Unavailable Berlin Dumont MD Unavailable Brandee Cotter CNP Unavailable DELMY SOLORZANO Primary Care Unavailable GOLNA, ACE Attending Unavailable SELF, REFERRAL Referring Unavailable GOLNA, ACE Primary Care Unavailable GOLNA, ACE Attending Unavailable GOLNA, ACE Primary Care Unavailable GOLNA, ACE Attending Unavailable GOLNA, ACE Primary Care Unavailable Delmy Solorzano MD Primary Care Provider Dr. Jozef Kaiser MD Emergency Provider Tg LORA, Dr. Olamide Ritchie Admit Provider Dr. Olamide Mas MD Attending Provider Barbi LORA, Delmy Primary Care Physician Dr. Jozef Kaiser MD Emergency Department Physician gT LORA, Dr. Olamide Ritchie Admitting Physician Tg LORA, Dr. Olamide Ritchie Nurse Practitioner Carolynn LORA, Dr. Putnam Attending Physician Unavail able Hakan DPMariam, Dr. Austin Nurse Practitioner Lisa LORA, Dr. Michael Nurse Practitioner Carolynn LORA, Dr. Putnam Nurse Practitioner Unavaila iris Meza DPM, Dr. Talavera Nurse Practitioner [phone] Olamide Mas Admitting Unavailable Koram, Ling Clara Attending Unavailable Barbi, Chalon Primary Care Unavailable White, Olamide L Consulting Unavailable Lisa, Cody Consulting Unavailable Belem Aponte Consulting Unavailable Barbi, Chalon Primary Care Unavailable Reggie Bourgeois Attending Unavailable Suppan, Norman Referring Unavailable Barbi, Chalon Primary Care Unavailable Reggie Bourgeois Attending Unavailable White, Olamide L Admitting Unavailable WhiteOlamide L Attending Unavailable White, Olamide L Consulting Unavailable Barbi, Chalon Primary Care Unavailable Jersey Pradhan Attending Unavailable Ilan Meza Consulting Unavailable Jersey Pradhan Consulting Unavailable Suppan, Norman Consulting Unavailable Lisa, Cody Consulting Unavailable White, Olamide L Admitting Unavailable WhiteOlamide L Attending Unavailable Barbi, Chalon Primary Care Unavailable White, Olamide L Consulting Unavailable Barbi, Chalon Primary Care Unavailable Stefano Lebron Attending Unavailabl Belem Costello Attending Unavailable Belem Aponte Consulting Unavailable Koram, Ling Clara Attending Unavailable Cody Gonzalez Consulting Unavailable Koram, Ling Clara Consulting Unavailable Barbi, Chalon Primary Care Unavailable Reggie Bourgeois Attending Unavailable Suppan, Norman Referring Unavailable Golna, Ace J Consulting Unavailable Barbi, Chalon Primary Care Unavailable Barbi, Chalon Referring Unavailable Barbi, Chalon Attending Unavailable Golna, Ace J Referring Unavailable Golna, Ace J Attending Unavailable Golna, Ace J Consulting Unavailable Barbi, Chalon Primary Care Unavailable White, Olamide L Admitting Unavailable White, Olamide L Consulting Unavailable Barbi, Chalon Primary Care Unavailable Jersey Pradhan Attending Unavailable Flipan, Norman Consulting Unavailable Lisa Cody Consulting Unavailable Allergies Allergy Classification Reported Allergen(s) Allergy Type Date of Onset Reaction(s) Facility (20 sources) cyclobenzaprine; Translations: [CYCLOBENZAPRINE HCL] Drug Allergy 7 Hives [facility] (20 sources) Sertraline; Translations: [SERTRALINE] Drug Allergy 1 Vomiting [facility] Work Phone: (20 sources) venlafaxine Drug Allergy 2 unknown, hives [facility] (1 source) cyclobenzaprine Drug Allergy 5 [facility] (1 source) venlafaxine Drug Allergy 5 [facility] Medications Current Medications Medication Drug Class(es) Dates Sig (Normalized) Sig (Original) acetaminophen 325 mg / oxyCODONE hydrochloride 5 mg oral tablet (20 sources) Opioid Agonist Start: 01-15-2024 take 1 tablet by mouth every six hours as needed for pain Start: 11-25-2019 End: 11-30-2019 Oxycodone-Acetaminophen 1 TA BLET tablet Discontinued 1 {tbl} PO EVERY 6 HOURS NEEDED as needed for Pain Score 6-10/10 20 5 0 November 25, 2019 November 29, 2019 1:00am November 30, 2019 1:08am Neuropathy Polyneuropathy, unspecified Start: 11-25-2019 End: 11-30-2019 take 1 tablet by mouth every six hours as needed Oxycodone-Acetaminophen Discontinued 1 TABLET PO EVERY 6 HOURS NEEDED 20 5 November 25, 2019 November 30, 2019 1:08am Start: 11-25-2019 End: 11-30-2019 Start: 08-20-2018 End: 08-28-2018 Oxycodone-Acetaminophen (Per cocet) 5-325 mg tablet Discontinued 1 {tbl} PO TWICE A DAY as needed for pain 15 0 August 20, 2018 August 27, 2018 12:00am August 28, 2018 12:08am Unspecified open wound of vagina and vulva, initial encounter Other specified soft tissue disorders Abscess of vulva Cutaneous abscess of groin Type 2 diabetes mellitus without complications Personal history of Methicillin resistant Staphylococcus aureus infection Start: 08-20-2018 End: 08-28-2018 Start: 07-15-2018 End: 07-23-2018 Oxycodone-Acetaminophen (Per cocet) 5-325 mg tablet Discontinued 1 {tbl} PO 4 TIMES DAILY as needed for pain 30 0 July 15, 2018 July 22, 2018 12:00am July 23, 2018 12:07am Cutaneous abscess of groin Abscess of vulva Other specified soft tissue disorders Unspecified open wound of vagina and vulva, initial encounter Start: 07-15-2018 End: 07-23-2018 Start: 02-23-2014 End: 04-09-2014 Oxycodone-Acetaminophen 1 TA BLET tablet Discontinued 1 - 2 {tbl} PO EVERY 4 HOURS NEEDED as needed for Pain February 23, 2014 12:00am April 09, 2014 1:35pm Start: 02-23-2014 End: 04-09-2014 take 1 tablet by mouth every four hours as needed Oxycodone-Acetaminophen Discontinued 1 - 2 TABLET PO EVERY 4 HOURS NEEDED February 23, 2014 12:00am April 09, 2014 1:35pm Start: 02-23-2014 End: 04-09-2014 albuterol 0.83 mg/ml inhalation solution (20 sources) beta2-Adrenergic Agonist Start: 12-09-2022 take 2.5 mg by inhalation every four hours as needed Start: 03-30-2021 End: 10-18-2022 albuterol (PROVENTIL) 2.5 mg /3 mL (0.083 %) nebulizer solution Indications: Acute pulmonary embolism without acute cor pulmonale, unspecified pulmonary embolism type (HCC) , Bacterial pneumonia Use 3 mL via nebulizer every 2 hours as needed for Wheezing/Shortness of Breath. Use over 5-15minutes. 30 Vial 2 03/30/2021 07/09/2022 Discontinued Start: 12-18-2018 End: 08-24-2020 take 2.5 mg by inhalation every two hours as needed Albuterol Sulfate 2.5 mg /3 mL (0.083 %) solution for nebulization Discontinued 2.5 mg inhalation EVERY 2 HOURS NEEDED as needed for SHORTNESS OF BREATH 90 3 March 29, 2020 10:32am August 24, 2020 10:25am Start: 12-18-2018 End: 08-24-2020 Comment on above: Use 3 mL via nebuliz er every 2 hours as needed for Wheezing/Shortness of Breath. Use over 5-15minutes. amoxicillin 875 mg / clavulanate 125 mg oral tablet (6 sources) Penicillin-class Antibacterial Start: 08-19-2025 Start: 01-15-2024 End: 11-09-2024 Amoxicillin-Pot Clavulanate 875-125 mg tablet Discontinued 1 {tbl} PO TWICE A DAY January 15, 2024 1:00am November 09, 2024 9:10pm Start: 01-15-2024 take 1 tablet by patricia th twice daily Amoxicillin-Pot Clavulanate Active 1 TABLET PO TWICE A DAY 19 09January 15, 2024 1:00am Start: 11-01-2022 take 1 tablet by patricia th twice daily Amoxicillin-Pot Clavulanate Active 1 TABLET PO TWICE A DAY November 01, 2022 12:00am apixaban 5 mg oral tablet (20 sources) Factor Xa Inhibitor Start: 12-18-2018 End: 01-03-2023 take 1 tablet by mouth twice daily Comment on above: Take 1 tablet by patricia th twice daily. atorvastatin 80 mg oral tablet (20 sources) HMG-CoA Reductase Inhibitor Start: 02-07-2022 take 100 mg by mouth at bedtime Atorvastatin Active 100 MG PO AT BEDTIME February 07, 2022 1:00am Start: 08-03-2021 End: 12-22-2023 take 1 tablet by mouth at bedtime Start: 01-05-2019 End: 02-07-2022 take 1 tablet by mouth at bedtime Atorvastatin 40 MG tablet Discontinued 40 mg PO AT BEDTIME August 20, 2020 12:16am February 07, 2022 10:59am cholesterol Comment on above: Take 1 tablet by patricia th once daily. cholecalciferol 1.25 mg oral capsule (20 sources) Vitamin D Start: 01-15-2022 Cholecalciferol (Vitamin D3) Active 1250 MCG PO January 15, 2022 6:42pm Start: 12-17-2021 End: 03-17-2022 take 1 capsule by mouth every week cholecalciferol, Vitamin D3, (VITAMIN D3) 1,250 mcg (50,000 unit) cap capsule Indications: Vitamin D deficiency Take 1 capsule by mouth one time a week. For 12 weeks 4 capsule 2 12/17/2021 Active Comment on above: Take 1 capsule by mo [facility] one time a week. For 12 weeks clotrimazole 10 mg/ml topical cream (4 sources) Azole Antifungal Start: 03-28-2022 End: 04-11-2022 clotrimazole (LOTRIMIN, CLOTRIM) 1 % cream Apply to affected area twice daily for 14 days. 45 g 1 03/28/2022 04/11/2022 Active Comment on above: Apply to affected ar ea twice daily for 14 days. COMPOUNDED PRESCRIPTION (20 sources) Start: 03-05-2018 COMPOUNDED PRESCRIPTION Indications: LOGAN (obstructive sleep apnea) Wedge pillow to be used nightly to elevate head for LOGAN Dx: LOGAN 1 Device 1 03/05/2018 Suspended Start: 03-05-2018 COMPOUNDED PRE SCRIPTION Indications: LOGNA (obstructive sleep apnea) Wedge pillow to be used nightly to elevate head for LOGAN Dx: LOGAN 1 Device 1 03/05/2018 Active End: 01-16-2023 COMPOUNDED PRESCRIPTION Dicl o CVLP: Diclofenac 2%, Colchicine 0.01%, Verapamil 5%, Lidocaine 2%, Prilocaine 2% SIG: Apply 1-2 pumps to area of pain BID - QID PRN, massaging in well. Repeat after 10 min. 01/16/2023 Discontinued End: 01-16-2023 COMPOUNDED PRESCRIPTION Seru m Gabaketo LP:Gabapentin 10%, Ketoprofen 10%, Lidocaine 2%, Prilocaine 2% SIG: Apply 2-5 drops to area of pain 2-4 times daily PRN, massaging in well. Repeat after 10 min. 01/16/2023 Discontinued End: 01-16-2023 COMPOUNDED PRESCRIPTION Dicl o CVLP: Diclofenac 2%, Colchicine 0.01%, Verapamil 5%, Lidocaine 2%, Prilocaine 2% SIG: Apply 1-2 pumps to area of pain BID - QID PRN, massaging in well. Repeat after 10 min. 0 01/16/2023 Discontinued End: 01-16-2023 COMPOUNDED PRESCRIPTION Seru m Gabaketo LP:Gabapentin 10%, Ketoprofen 10%, Lidocaine 2%, Prilocaine 2% SIG: Apply 2-5 drops to area of pain 2-4 times daily PRN, massaging in well. Repeat after 10 min. 0 01/16/2023 Discontinued COMPOUNDED PRESC RIPTION Diclo CVLP: Diclofenac 2%, Colchicine 0.01%, Verapamil 5%, Lidocaine 2%, Prilocaine 2% SIG: Apply 1-2 pumps to area of pain BID - QID PRN, massaging in well. Repeat after 10 min. 0 Suspended COMPOUNDED PRESC RIPTION Serum Gabaketo LP:Gabapentin 10%, Ketoprofen 10%, Lidocaine 2%, Prilocaine 2% SIG: Apply 2-5 drops to area of pain 2-4 times daily PRN, massaging in well. Repeat after 10 min. 0 Suspended COMPOUNDED PRESC RIPTION Diclo CVLP: Diclofenac 2%, Colchicine 0.01%, Verapamil 5%, Lidocaine 2%, Prilocaine 2% SIG: Apply 1-2 pumps to area of pain BID - QID PRN, massaging in well. Repeat after 10 min. 0 Active COMPOUNDED PRESC RIPTION Serum Gabaketo LP:Gabapentin 10%, Ketoprofen 10%, Lidocaine 2%, Prilocaine 2% SIG: Apply 2-5 drops to area of pain 2-4 times daily PRN, massaging in well. Repeat after 10 min. 0 Active Comment on above: Wedge pillow to be u sed nightly to elevate head for LOGAN Dx: LOGAN Diclo CVLP: Diclofen ac 2%, Colchicine 0.01%, Verapamil 5%, Lidocaine 2%, Prilocaine 2% SIG: Apply 1-2 pumps to area of pain BID - QID PRN, massaging in well. Repeat after 10 min. Serum Gabaketo LP:Ga bapentin 10%, Ketoprofen 10%, Lidocaine 2%, Prilocaine 2% SIG: Apply 2-5 drops to area of pain 2-4 times daily PRN, massaging in well. Repeat after 10 min. Compression Knee Highs (20 sources) Start: 07-29-2018 Compression Knee Highs Indications: Bilateral lower extremity edema KNEE HIGH COMPRESSION STOCKINGS 20-30 MM. DX: EDEMA, lymphedema, venous insufficiency 1 Device 1 07/29/2018 Suspended Start: 07-29-2018 Compression Kn ee Highs Indications: Bilateral lower extremity edema KNEE HIGH COMPRESSION STOCKINGS 20-30 MM. DX: EDEMA, lymphedema, venous insufficiency 1 Device 1 07/29/2018 Active Comment on above: KNEE HIGH COMPRESSIO N STOCKINGS 20-30 MM. DX: EDEMA, lymphedema, venous insufficiency 24 hr dilTIAZem hydrochloride 120 mg extended release oral capsule (20 sources) Calcium Channel [place] Start: 01-05-2019 End: 07-02-2023 take 1 capsule by mouth once daily Comment on above: Take 1 capsule by [facility] once daily. doxycycline hyclate 100 mg oral capsule (8 sources) Tetracycline-class Drug Start: 08-19-2025 take 1 capsule by mouth twice daily Start: 11-12-2024 take 1 capsule by [facility] twice daily Start: 12-09-2022 take 100 mg by mouth twice gume ly Doxycycline Monohydrate Active 100 MG PO TWICE A DAY December 09, 2022 12:00am Dulaglutide (10 sources) GLP-1 Receptor Agonist Start: 01-15-2022 Dulaglu tide (Trulicity) 4.5 mg/0.5 mL pen injector Active 4.5 MG SC January 15, 2022 6:42pm Start: 01-15-2022 Dulaglutide (T rulicity) 4.5 mg/0.5 mL pen injector Active 4.5 MG SC WE January 15, 2022 12:00am Start: 01-15-2022 Dulaglutide (T rulicity) 4.5 mg/0.5 mL pen injector Active 4.5 MG SC WE January 15, 2022 1:00am Start: 06-22-2021 End: 08-03-2021 inject 1.5 mg by subcutaneous injection every week dulaglutide (TRULICITY) 1.5 mg/0.5 mL pen injector Inject 1.5 mg subcutaneously one time a week. 4 Each 5 06/22/2021 08/03/2021 Discontinued DULoxetine 60 mg delayed release oral capsule (2 sources) Serotonin and Norepinephrine Reuptake Inhibitor Start: 11-09-2024 take 1 capsule by mouth once daily ergocalciferol 1.25 mg oral capsule (2 sources) Provitamin D2 Compound Start: 11-09-2024 fenofibrate 145 mg oral tablet (20 sources) Peroxisome Proliferator Receptor alpha Agonist Start: 08-03-2021 End: 12-22-2023 take 1 tablet by mouth once daily Comment on above: Take 1 tablet by [facility] once daily. ferrous sulfate 325 mg oral tablet (2 sources) Start: 11-09-2024 take 1 tablet by mouth once daily flash glucose scanning reader ([employer] BAO 14 DAY READER) (20 sources) Start: 12-05-2022 End: 06-03-2023 flash glucose scanning reader (FREESTYLE BAO 14 DAY READER) 1 Device four times daily. 1 Each 0 12/05/2022 06/03/2023 Suspended Start: 12-05-2022 End: 06-03-2023 flash glucose scanning reade r (FREESTYLE BAO 14 DAY READER) 1 Device four times daily. 1 Each 0 12/05/2022 06/03/2023 Active Start: 07-09-2022 End: 12-05-2022 flash glucose scanning reade r (FREESTYLE BAO 14 DAY READER) 1 Device four times daily. 1 Each 07/09/2022 12/05/2022 Discontinued Start: 07-09-2022 End: 12-05-2022 flash glucose scanning reade r (FREESTYLE BAO 14 DAY READER) 1 Device four times daily. 1 Each 0 07/09/2022 12/05/2022 Discontinued Start: 07-09-2022 End: 01-05-2023 flash glucose scanning reade r (FREESTYLE BAO 14 DAY READER) 1 Device four times daily. 1 Each 0 07/09/2022 01/05/2023 Active Start: 02-06-2022 End: 07-09-2022 flash glucose scanning reade r (FREESTYLE BAO 14 DAY READER) 1 Device four times daily. 1 Each 02/06/2022 07/09/2022 Discontinued Start: 02-06-2022 End: 07-09-2022 flash glucose scanning reade r (FREESTYLE BAO 14 DAY READER) 1 Device four times daily. 1 Each 0 02/06/2022 07/09/2022 Discontinued Start: 02-06-2022 End: 08-05-2022 flash glucose scanning reade r (FREESTYLE BAO 14 DAY READER) 1 Device four times daily. 1 Each 0 02/06/2022 08/05/2022 Active Start: 02-14-2021 End: 01-25-2022 flash glucose scanning reade r (FREESTYLE BAO 14 DAY READER) Indications: Type 2 diabetes mellitus with diabetic polyneuropathy, with long-term current use of insulin (HCC) To use 4 times daily to monitor glucose. Dx: uncontrolled type II DM on insulin 1 Each 02/14/2021 01/25/2022 Discontinued (Cost of medication) Start: 02-14-2021 End: 01-25-2022 flash glucose scanning reade r (FREESTYLE BAO 14 DAY READER) Indications: Type 2 diabetes mellitus with diabetic polyneuropathy, with long-term current use of insulin (HCC) To use 4 times daily to monitor glucose. Dx: uncontrolled type II DM on insulin 1 Each 0 02/14/2021 01/25/2022 Discontinued (Cost of medication) Comment on above: To use 4 times daily to monitor glucose. Dx: uncontrolled type II DM on insulin 1 Device four times daily. flash glucose sensor (FREESTYLE BAO 14 DAY SENSOR) kit (20 sources) Start: 06-20-2023 End: 12-17-2023 flash glucose sensor (FREESTYLE BAO 14 DAY SENSOR) kit 1 Each once daily. Use 1 device for up to 14 days to monitor sugars 4 times per day. 2 Each 5 06/20/2023 12/17/2023 Active Start: 12-31-2022 End: 06-17-2023 flash glucose sensor (FREEST YLE BAO 14 DAY SENSOR) kit 1 Each once daily. Use 1 device for up to 14 days to monitor sugars 4 times per day. 2 Each 5 12/31/2022 06/17/2023 Discontinued Start: 12-31-2022 End: 06-29-2023 flash glucose sensor (FREEST YLE BAO 14 DAY SENSOR) kit 1 Each once daily. Use 1 device for up to 14 days to monitor sugars 4 times per day. 2 Each 5 12/31/2022 06/29/2023 Suspended Start: 12-31-2022 End: 06-29-2023 flash glucose sensor (FREEST YLE BAO 14 DAY SENSOR) kit 1 Each once daily. Use 1 device for up to 14 days to monitor sugars 4 times per day. 2 Each 5 12/31/2022 06/29/2023 Active Start: 07-09-2022 End: 12-31-2022 flash glucose sensor (FREEST YLE BAO 14 DAY SENSOR) kit 1 Each once daily. Use 1 device for up to 14 days to monitor sugars 4 times per day. 2 Each 5 07/09/2022 12/31/2022 Discontinued Start: 07-09-2022 End: 01-05-2023 flash glucose sensor (FREEST YLE BAO 14 DAY SENSOR) kit 1 Each once daily. Use 1 device for up to 14 days to monitor sugars 4 times per day. 2 Each 5 07/09/2022 01/05/2023 Suspended Start: 07-09-2022 End: 01-05-2023 flash glucose sensor (FREEST YLE BAO 14 DAY SENSOR) kit 1 Each once daily. Use 1 device for up to 14 days to monitor sugars 4 times per day. 2 Each 5 07/09/2022 01/05/2023 Active Start: 02-06-2022 End: 07-09-2022 flash glucose sensor (FREEST YLE BAO 14 DAY SENSOR) kit 1 Each once daily. Use 1 device for up to 14 days to monitor sugars 4 times per day. 2 Each 5 02/06/2022 07/09/2022 Discontinued Start: 02-06-2022 End: 08-05-2022 flash glucose sensor (FREEST YLE BAO 14 DAY SENSOR) kit 1 Each once daily. Use 1 device for up to 14 days to monitor sugars 4 times per day. 2 Each 5 02/06/2022 08/05/2022 Active Start: 02-14-2021 End: 01-25-2022 flash glucose sensor (FREEST YLE BAO 14 DAY SENSOR) kit Indications: Type 2 diabetes mellitus with diabetic polyneuropathy, with long-term current use of insulin (HCC) 1 Each four times daily. 2 Kit 2 02/14/2021 01/25/2022 Discontinued (Cost of medication) Comment on above: 1 Each four times da lara. 1 Each once daily. U se 1 device for up to 14 days to monitor sugars 4 times per day. 3 ml insulin glargine 300 un t/ml pen injector (20 sources) Insulin Analog Start: 07-14-2023 Start: 07-14-2023 inject 3 mL by subcu taneous injection twice daily Insulin Glargine U-300 Conc [Insulin Glargine U-300 Conc 300 Unit/Ml (3 Ml) Subcutaneous Pen] (Insulin Glargine U-300 Conc 300 Unit/Ml (3 Ml) ) 300 unit/mL (3 mL) insulin pen Active 104 UNIT SC TWICE A DAY July 14, 2023 12:00am Start: 04-21-2023 End: 08-07-2023 insulin glargine U-300 conc (TOUJEO MAX U-300 SOLOSTAR) 300 unit/mL (3 mL) inpn Inject 105 Units subcutaneously twice daily. 21 mL 0 07/08/2023 08/07/2023 Active Start: 12-09-2022 Insulin Glargi ne U-300 Conc (Toujeo Max U-300 Solostar) 300 unit/mL (3 mL) insulin pen Active 150 UNIT SC DAILY December 09, 2022 1:00am Start: 10-30-2022 insulin glargi ne U-300 conc (TOUJEO MAX U-300 SOLOSTAR) 300 unit/mL (3 mL) inpn Inject 105 Units subcutaneously twice daily. 21 mL 5 10/30/2022 Active Start: 07-09-2022 End: 10-30-2022 insulin glargine U-300 conc (TOUJEO MAX U-300 SOLOSTAR) 300 unit/mL (3 mL) inpn Inject 92 Units subcutaneously twice daily. 18 mL 5 07/09/2022 10/30/2022 Discontinued Start: 03-29-2022 End: 07-09-2022 insulin glargine U-300 conc (TOUJEO MAX U-300 SOLOSTAR) 300 unit/mL (3 mL) inpn Inject 88 Units subcutaneously twice daily. 18 mL 5 03/29/2022 07/09/2022 Discontinued Start: 09-14-2020 End: 03-26-2021 Insulin Glargine 100 unit/mL (3 mL) insulin pen Discontinued 100 U SC TWICE A DAY September 14, 2020 1:33pm March 26, 2021 11:22am Start: 08-24-2020 End: 09-14-2020 Insulin Glargine 100 UNITS/M L insulin pen Discontinued 90 U SC TWICE A DAY 1 August 24, 2020 12:00am September 14, 2020 1:35pm Start: 08-24-2020 End: 09-14-2020 Insulin Glargine Discontinue d 90 UNITS SC TWICE A DAY August 24, 2020 12:00am September 14, 2020 1:35pm Start: 01-04-2019 End: 08-24-2020 inject 70 [IU] by subcutaneous injection twice daily Insulin Glargine 100 UNITS/ML insulin pen Discontinued 70 U subcut TWICE A DAY January 04, 2019 11:34pm August 24, 2020 10:24am diabetes Start: 06-10-2018 End: 01-04-2019 Insulin Glargine 100 UNITS/M L insulin pen Discontinued 55 U SC TWICE A DAY 5 2 June 10, 2018 12:00am January 04, 2019 11:34pm Start: 06-10-2018 End: 01-04-2019 Insulin Glargine Discontinue d 55 UNITS SC TWICE A DAY 5 June 10, 2018 12:00am January 04, 2019 11:34pm Start: 10-08-2017 End: 06-07-2018 inject 75 [IU] by subcutaneous injection at breakfast Insulin Glargine 100 UNIT/ML insulin pen Discontinued 75 U SQ WITH BREAKFAST 0 0 October 08, 2017 12:30pm June 07, 2018 3:15am Start: 03-26-2017 End: 03-26-2021 Insulin Glargine (Basaglar K wikpen U-100 Insulin) 100 UNIT/ML Insuln.Pen Discontinued 50 U SQ TWICE A DAY June 07, 2018 3:14am June 10, 2018 12:39pm bs Start: 03-26-2017 End: 10-08-2017 Insulin Glargine (Basaglar K wikpen U-100 Insulin) 100 UNIT/ML Insuln.Pen Discontinued 70 U SQ WITH BREAKFAST March 26, 2017 12:00am October 08, 2017 12:30pm Start: 03-26-2017 End: 08-24-2020 inject 70 [IU] by subcutaneous injection twice daily Insulin Glargine Discontinued 70 UNITS subcut TWICE A DAY January 04, 2019 11:34pm August 24, 2020 10:24am Comment on above: Inject 88 Units subc utaneously twice daily. Inject 92 Units subc utaneously twice daily. Inject 105 Units sub cutaneously twice daily. Insulin Glargine U-300 Conc (Toujeo Max U-300 Solostar) 300 unit/mL (3 mL) insulin pen (1 source) Start: 07-14-20 Insulin Glargine U-300 Conc (Toujeo Max U-300 Solostar) 300 unit/mL (3 mL) insulin pen Active 104 U SC TWICE A DAY July 14, 2023 12:00am diabetes levoFLOXacin 500 mg oral tablet (20 sources) Quinolone Antimicrobial Start: 09-24-20 take 500 mg by mouth once daily Levofloxacin Active 500 MG PO DAILY 04 04September 23, 2022 11:00pm Start: 12-28-2019 End: 03-01-2020 take 1 tablet by mouth every twenty-four hours Levofloxacin 500 mg tablet Discontinued 500 mg PO Q24H 10 December 28, 2019 1:00am March 01, 2020 10:34am Start: 12-28-2019 End: 03-01-2020 lisinopril 10 mg oral tablet (20 sources) Angiotensin Converting Enzyme Inhibitor Start: 02-14-2021 End: 12-22-2023 take 1 tablet by mouth once daily Start: 01-18-2019 End: 03-01-2020 take 10 mg by mouth once daily Lisinopril 20 mg tablet Discontinued 10 mg PO DAILY January 18, 2019 5:43pm March 01, 2020 10:36am bp Start: 09-29-2013 End: 03-26-2021 take 1 tablet by mouth once daily Lisinopril 20 mg tablet Discontinued 20 mg PO DAILY March 01, 2020 10:32am March 26, 2021 11:20am bp Start: 09-29-2013 End: 03-26-2021 take 10 mg by mouth once daily Lisinopril Discontinued 10 MG PO DAILY January 18, 2019 5:43pm March 01, 2020 10:36am Comment on above: Take 1 tablet by patricia th once daily. loratadine 10 mg oral tablet (20 sources) Start: 12-18-2018 End: 01-03-2023 take 1 tablet by mouth once daily as needed Comment on above: Take 1 tablet by patricia th once daily. LORazepam 1 mg oral tablet (13 sources) Benzodiazepine Start: 11-09-2024 take 1 tablet by mouth three times daily Start: 07-14-2023 End: 11-09-2024 take 1 tablet by mouth every twelve hours as needed for anxiety Lorazepam 0.5 mg tablet Discontinued 0.5 mg PO Q12H as needed for anxiety July 14, 2023 12:00am November 09, 2024 9:08pm 24 hr metFORMIN hydrochlorid e 500 mg extended release oral tablet (20 sources) Biguanide Start: 03-26-2021 Start: 03-26-2021 End: 12-22-2023 take 4 tablets by mouth once daily in the morning metFORMIN ER (GLUCOPHAGE XR) 500 mg 24 hr tablet Take 4 tablets by mouth every morning. 120 tablet 11 06/22/2021 07/09/2022 Discontinued Start: 09-14-2020 End: 03-26-2021 take 2 tablets by mouth once daily Metformin 1,000 mg tablet Discontinued 2000 mg PO DAILY September 14, 2020 1:34pm March 26, 2021 11:20am Check with primary doctor Start: 01-04-2019 End: 09-14-2020 take 1 tablet by mouth once daily Metformin 1,000 MG tablet Discontinued 1000 mg PO DAILY January 04, 2019 1:00am September 14, 2020 1:35pm Check with primary doctor Start: 01-04-2019 End: 03-26-2021 take 2000 mg by mouth once daily Metformin Discontinue d 2000 MG PO DAILY September 14, 2020 1:34pm March 26, 2021 11:20am Start: 02-02-2017 End: 10-08-2017 take 2 tablets by mouth twice daily at mealtime Metformin 500 MG tablet Discontinued 1000 mg PO TWICE DAILY WITH MEALS February 02, 2017 1:00am October 08, 2017 1:38pm Start: 02-02-2017 End: 10-08-2017 take 1000 mg by mouth twice daily at mealtime Metformin Discontinued 1000 MG PO TWICE DAILY WITH MEALS February 02, 2017 1:00am October 08, 2017 1:38pm Start: 09-29-2013 End: 04-09-2014 take 1 tablet by mouth twice daily at mealtime Metformin 1,000 MG tablet Discontinued 1000 mg PO TWICE DAILY WITH MEALS September 29, 2013 12:00am April 09, 2014 1:28pm Start: 09-29-2013 End: 04-09-2014 Comment on above: Take 4 tablets by mo ut every morning. methocarbamol 750 mg oral tablet (2 sources) Muscle Relaxant Start: 08-16-2025 take 2 tablets by mouth three times daily metOLazone 2.5 mg oral tablet (10 sources) Thiazide-like Diuretic Start: 07-15-2023 take 1 tablet by mouth once 24 hr metoprolol succinate 25 mg extended release oral tablet (20 sources) beta-Adrenergic Eugene Start: 02-14-2021 End: 07-02-2023 take 1 tablet by mouth once daily Comment on above: Take 1 tablet by patricia once daily. Fqvfieib-Qzzl-Gk-Calcium -Mins (20 sources) Start: 03-26-2017 Ssdzpdku-Kphc-Yq -Calcium-Mins Active 1 EACH PO DAILY March 26, 2017 6:01pm Start: 03-26-2017 Multivit-Iron- Sl-Twxqjqb-Lwsf Active 1 EACH PO DAILY March 25, 2017 11:00pm Start: 03-26-2017 Multivit-Iron- Ff-Fjbofge-Ymrn Active 1 EACH PO DAILY March 26, 2017 12:00am Cbbdbtae-Nkew-Ok-Calcium-Min s 1 EACH tablet (2 sources) Start: 03-26-2017 take 1 tablet by mouth once daily Start: 03-26-2017 take 1 tablet by patricia once daily Zrpupmgj-Jmqr-Jh-Calcium-Mins 1 EACH tab let Active 1 NMA PO DAILY March 26, 2017 12:00am supplement multivitamin tablet (20 sources) take 1 tablet by patricia once daily multivitamin tablet Take 1 tablet by mouth once daily. Active take 1 tablet by mouth once naya y multivitamin tablet Take 1 tablet by mouth once daily. 0 Suspended take 1 tablet by mouth once naya y multivitamin tablet Take 1 tablet by mouth once daily. 0 Active Comment on above: Take 1 tablet by patricia once daily. omeprazole 40 mg delayed release oral capsule (20 sources) Proton Pump Inhibitor Start: 12-15-2018 End: 08-22-2023 take 1 capsule by mouth once daily Comment on above: Take 1 capsule by mo [facility] once daily. oxyCODONE hydrochloride 15 mg oral tablet (18 sources) Opioid Agonist Start: 08-16-2025 take 1 tablet by mouth every six hours as needed for pain Start: 02-20-2023 End: 02-23-2023 take 1 tablet by mouth every six hours as needed for pain oxyCODONE IR (ROXICODONE) 5 mg immediate release tablet Indications: Cellulitis of perineum Take 1 tablet by mouth every 6 hours as needed for pain for up to 3 days. 8 tablet 0 02/20/2023 02/23/2023 Start: 01-20-2023 End: 01-25-2023 take 1 tablet by mouth every eight hours as needed for pain oxyCODONE IR (ROXICODONE) 5 mg immediate release tablet Indications: Open wounds involving multiple regions of lower extremity Take 1 tablet by mouth every 8 hours as needed for pain for up to 5 days. 15 tablet 0 01/20/2023 01/25/2023 Active Start: 01-16-2023 End: 01-21-2023 take 1 tablet by mouth every six hours as needed oxyCODONE IR (ROXICODONE) 5 mg immediate release tablet Indications: Status post incision and drainage Take 1 tablet by mouth every 6 hours as needed for up to 5 days. 15 tablet 0 01/16/2023 01/20/2023 Discontinued Start: 01-06-2023 End: 01-13-2023 take 1 tablet by mouth once daily as needed for pain oxyCODONE IR (ROXICODONE) 5 mg immediate release tablet Indications: Necrotizing soft tissue infection Take 1 tablet by mouth as needed for pain (dressing changes once daily) for up to 7 days. 10 tablet 0 01/06/2023 01/13/2023 Suspended Start: 01-01-2023 End: 01-06-2023 take 1 tablet by mouth every six hours as needed for pain oxyCODONE IR (ROXICODONE) 5 mg immediate release tablet Indications: Necrotizing soft tissue infection Take 1 tablet by mouth every 6 hours as needed for pain for up to 5 days. 20 tablet 0 01/01/2023 01/06/2023 Discontinued (Course of therapy completed) Comment on above: Take 1 tablet by patricia th every 6 hours as needed for pain for up to 5 days. Take 1 tablet by patricia th as needed for pain (dressing changes once daily) for up to 7 days. Take 1 tablet by patricia th every 6 hours as needed for up to 5 days. Take 1 tablet by patricia th every 8 hours as needed for pain for up to 5 days. Take 1 tablet by patricia th every 6 hours as needed for pain for up to 3 days. pregabalin 150 mg oral capsule (2 sources) Start: 08-16-2025 take 1 capsule by mouth three times daily Semaglutide (11 sources) Start: 07-14-2023 Start: 07-14-2023 Semaglutide (O zempic) 1 mg/dose (4 mg/3 mL) pen injector Active 1 mg SC .1XW July 14, 2023 12:00am diabetes Start: 07-14-2023 Semaglutide (O zempic) 1 mg/dose (4 mg/3 mL) pen injector Active 1 MG SC .1XW July 13, 2023 11:00pm Start: 07-14-2023 Semaglutide (O zempic) 1 mg/dose (4 mg/3 mL) pen injector Active 1 MG SC .1XW July 14, 2023 12:00am Start: 07-14-2023 Semaglutide (S emaglutide 1 Mg/Dose (4 Mg/3 Ml) Subcutaneous Pen Injector) 1 mg/dose (4 mg/3 mL) pen injector Active 1 MG SC .1XW July 14, 2023 12:00am Semaglutide (1 source) Start: 08-16-2025 semaglutide (OZEMPIC) 1 mg/dose (4 mg/3 mL) pen (8 sources) Start: 07-08-2023 End: 08-07-2023 inject 1 mg by subcutaneous injection every week semaglutide (OZEMPIC) 1 mg/dose (4 mg/3 mL) pen Inject 1 mg subcutaneously one time a week. This REPLACES Trulicity. 3 mL 0 07/08/2023 08/07/2023 Active Comment on above: Inject 1 mg subcutan eously one time a week. This REPLACES Trulicity. Semaglutide (Semaglutide 2 Mg/Dose (8 Mg/3 Ml) Subcutaneous Pen Injector) 2 mg/dose (8 mg/3 mL) pen injector (1 source) Start: 08-16-2025 Semaglutide (Semaglutide 2 Mg/Dose (8 Mg/3 Ml) Subcutaneous Pen Injector) 2 mg/dose (8 mg/3 mL) pen injector Active mg SC August 16, 2025 12:00am sulfamethoxazole 800 mg / trimethoprim 160 mg oral tablet (20 sources) Dihydrofolate Reductase Inhibitor Antibacterial, Sulfonamide Antimicrobial Start: 02-20-2023 End: 02-25-2023 take 1 tablet by mouth every twelve hours sulfamethoxazole- trimethoprim (BACTRIM DS) 800-160 mg per tablet Take 1 tablet by mouth every 12 hours for 10 doses. 10 tablet 0 02/20/2023 02/25/2023 Active Start: 01-16-2023 End: 01-21-2023 take 1 tablet by mouth twice daily sulfamethoxazole-trimethoprim (BACTRIM D S) 800-160 mg per tablet Take 1 tablet by mouth twice daily for 5 days. 10 tablet 0 01/16/2023 01/21/2023 Active Start: 12-20-2013 End: 01-05-2014 Sulfamethoxazole-Trimethopri m 1 TABLET tablet Discontinued 1 {tbl} PO TWICE A DAY 10 December 20, 2013 1:00am January 05, 2014 2:20am take with food Start: 12-20-2013 End: 01-05-2014 take 1 tablet by mouth twice daily at mealtime Sulfamethoxazole-Trimethoprim Discontinu ed 1 TABLET PO TWICE A DAY December 20, 2013 1:00am January 05, 2014 2:20am take with food Start: 12-20-2013 End: 01-05-2014 Comment on above: Take 1 tablet by patricia th twice daily for 5 days. Take 1 tablet by patricia th every 12 hours for 10 doses. WALKER ROLLATOR SEAT WITH 6" WHEELS - RED (20 sources) Start: 01-23-2022 WALKER ROLLATOR SEAT WITH 6" WHEELS - RED Indications: SOB (shortness of breath) , Oxygen dependent Patient requires large seat 1 Each 01/23/2022 Active Start: 01-23-2022 WALKER ROLLATO R SEAT WITH 6" WHEELS - RED Indications: SOB (shortness of breath) , Oxygen dependent Patient requires large seat 1 Each 0 01/23/2022 Suspended Start: 01-23-2022 WALKER ROLLATO R SEAT WITH 6" WHEELS - RED Indications: SOB (shortness of breath) , Oxygen dependent Patient requires large seat 1 Each 0 01/23/2022 Active Comment on above: Patient requires lar ge seat (20 sources) Start: 12-24-2022 Start: 09-24-2022 End: 12-24-2022 Start: 01-15-2022 End: 09-24-2022 Start: 08-24-2020 End: 09-23-2020 Start: 08-20-2020 End: 09-14-2020 Start: 01-04-2019 End: 08-24-2020 Start: 02-28-2018 End: 08-20-2020 Start: 10-07-2017 End: 03-01-2020 Start: 09-13-2017 End: 01-04-2019 Start: 03-26-2017 Start: 03-26-2017 End: 03-01-2020 Start: 04-06-2014 End: 04-09-2014 Completed/Discontinued Medications Medication Drug Class(es) Dates Sig (Normalized) Sig (Original) acetaminophen 325 mg / HYDROcodone bitartrate 5 mg oral tablet (20 sources) Opioid Agonist Start: 01-02-2019 End: 01-04-2019 Hydrocodone-Acetami nophen 1 TABLET tablet Discontinued 1 {tbl} PO EVERY 4 HOURS NEEDED as needed for Pain 10 2 January 02, 2019 1:00am January 03, 2019 1:00am January 04, 2019 1:09am Pain of upper extremity Pain in arm, unspecified Start: 01-02-2019 End: 01-04-2019 take 1 tablet by mouth every four hours as needed Hydrocodone-Acetaminophen Discontinued 1 TABLET PO EVERY 4 HOURS NEEDED 10 2 January 02, 2019 1:00am January 04, 2019 1:09am Start: 01-02-2019 End: 01-04-2019 albuterol 0.833 mg/ml / ipratropium bromide 0.167 mg/ml inhalation solution (20 sources) Anticholinergic, beta2-Adrenergic Agonist Start: 08-24-2020 End: 03-26-2021 take 1 mL by inhalation every four hours Ipratropium-Albuterol 3 ML solution for nebulization Discontinued 3 mL INHALATION EVERY 4 HOURS 1 August 24, 2020 12:00am March 26, 2021 11:23am Continue q4h x 7 days. Start: 08-24-2020 End: 03-26-2021 take 1 mL by inhalation every four hours Ipratropium-Albuterol Discontinued 3 ML INHALATION EVERY 4 HOURS August 24, 2020 12:00am March 26, 2021 11:23am Continue q4h x 7 days. Start: 08-24-2020 End: 03-26-2021 aspirin 81 mg delayed release oral tablet (20 sources) Platelet Aggregation Inhibitor, Nonsteroidal Anti-inflammatory Drug Start: 01-05-2019 End: 01-25-2022 take 1 tablet by mouth once daily Aspirin 81 MG tablet Discontinued 81 mg PO DAILY@0800 August 20, 2020 12:16am August 20, 2021 10:27am heart health Comment on above: Take 1 tablet by mouth once daily. [id number] e Calcium-B6 (20 sources) Start: 10-07-2017 End: 03-01-2020 [id number] Calcium-B6 Discontinued 1 EACH PO DAILY October 08, 2017 12:16am March 01, 2020 10:33am Start: 10-07-2017 End: 03-01-2020 [id number] Calcium-B6 Discontinued 1 EACH PO DAILY October 07, 2017 12:00am March 01, 2020 9:33am Start: 10-07-2017 End: 03-01-2020 [id number] Calcium-B6 Discontinued 1 EACH PO DAILY October 07, 2017 1:00am March 01, 2020 10:33am [id number] Calcium-B6 1 EACH tablet (2 sources) Start: 10-07-2017 End: 03-01-2020 take 1 tablet by mouth once daily [id number] Calcium-B6 1 EACH tablet Discontinued 1 NMA PO DAILY October 07, 2017 1:00am March 01, 2020 10:33am supplement Blood-Glucose Meter monitoring kit (4 sources) Start: 07-16-2018 End: 01-25-2022 Blood-Glucose Meter monitoring kit Glucose Meter of Choice - Kit - Dx: Other DM Code E11.42 1 Each 07/16/2018 01/25/2022 Discontinued Start: 07-16-2018 End: 01-25-2022 Blood-Glucose Meter monitori ng kit Glucose Meter of Choice - Kit - Dx: Other DM Code E11.42 1 Each 0 07/16/2018 01/25/2022 Discontinued Comment on above: Glucose Meter of Cho ice - Kit - Dx: Other DM Code E11.42 busPIRone hydrochloride 15 mg oral tablet (20 sources) Start: 3 End: 0 take 5 mg by mouth twice daily as needed for anxiety Buspirone 15 MG tablet Discontinued 5 mg PO TWICE A DAY as needed for Anxiety September 29, 2013 12:00am August 24, 2020 10:25am Start: 09-29-2013 End: 08-24-2020 take 5 mg by mouth twice daily Buspirone Discontinued 5 MG PO TWICE A DAY September 29, 2013 12:00am August 24, 2020 10:25am cefdinir 300 mg oral capsule (20 sources) Cephalosporin Antibacterial Start: 08-24-2020 End: 09-14-2020 take 1 capsule by mouth every twelve hours Cefdinir 300 MG capsule Discontinued 300 mg PO Q12H 6 August 24, 2020 12:00am September 14, 2020 1:32pm cephalexin 500 mg oral capsule (2 sources) Cephalosporin Antibacterial Start: 11-12-2024 End: 08-19-2025 take 1 capsule by mouth three times daily Cephalexin 500 mg capsule Discontinued 500 mg PO THREE TIMES A DAY 14 0 November 12, 2024 1:00am August 19, 2025 11:56am citalopram 20 mg oral tablet (20 sources) Serotonin Reuptake Inhibitor Start: 07-14-2023 End: 11-09-2024 take 1 tablet by mouth once daily Citalopram 20 mg tablet Discontinued 20 mg PO DAILY July 14, 2023 12:00am November 09, 2024 9:10pm mental health Start: 03-11-2023 End: 06-24-2023 take 1 tablet by mouth once daily citalopram (CELEXA) 20 mg tablet Indications: Anxiety and depression Take 1 tablet by mouth once daily. 90 tablet 0 06/25/2023 Active Comment on above: Take 1 tablet by [facility] once daily. clindamycin 300 mg oral capsule (2 sources) Lincosamide Antibacterial Start: 02-19-20 End: 02-21-20 take 1 capsule by mouth four times daily clindamycin (CLEOCIN) 300 mg capsule Indications: Abscess of groin, left , Non-healing open wound of left groin, initial encounter Take 1 capsule by mouth four times daily. 40 capsule 0 02/18/2023 02/20/2023 Discontinued Start: 01-12-2023 take 1 capsule by [facility] four times daily Clindamycin Hcl (Cleocin Hcl) 300 mg capsule Active 300 MG PO 4 TIMES DAILY 40 January 12, 2023 12:00am Comment on above: Take 1 capsule by mo [facility] four times daily. Compression Socks, Medium (20 sources) Start: 08-20-2020 End: 09-14-2020 Compression Socks, Medium Discontinued 1 EACH MC DAILY August 19, 2020 11:16pm September 14, 2020 12:32pm Start: 08-20-2020 End: 09-14-2020 Compression Socks, Medium Di scontinued 1 EACH MC DAILY August 20, 2020 12:16am September 14, 2020 1:32pm Start: 02-28-2018 End: 08-20-2020 Compression Socks, Medium Di scontinued 1 EACH MC DAILY February 28, 2018 10:46pm August 20, 2020 12:16am Start: 02-28-2018 End: 08-20-2020 Compression Socks, Medium Di scontinued 1 EACH MC DAILY February 27, 2018 11:00pm August 19, 2020 11:16pm Start: 02-28-2018 End: 08-20-2020 Compression Socks, Medium Di scontinued 1 EACH MC DAILY February 28, 2018 12:00am August 20, 2020 12:16am Compression Socks, Medium 1 EACH misc (4 sources) Start: 08-20-2020 End: 09-14-2020 Compression Socks, Medium 1 EACH misc Discontinued 1 NMA MC DAILY August 20, 2020 12:16am September 14, 2020 1:32pm Check with primary doctor Start: 02-28-2018 End: 08-20-2020 Compression Socks, Medium 1 EACH misc Discontinued 1 NMA MC DAILY 1 February 28, 2018 12:00am August 20, 2020 12:16am dicyclomine hydrochloride 10 mg oral capsule (20 sources) Anticholinergic Start: 09-23-2016 End: 10-07-2017 take 2 capsules by mouth at bedtime Dicyclomine 10 MG capsule Discontinued 20 mg PO BEFORE MEALS AND AT BEDTIME September 23, 2016 12:00am October 08, 2017 12:16am Start: 09-23-2016 End: 10-07-2017 take 20 mg by mouth at bedtime Dicyclomine Discontinue d 20 MG PO BEFORE MEALS AND AT BEDTIME September 23, 2016 12:00am October 08, 2017 12:16am Start: 09-23-2016 End: 10-07-2017 docusate sodium 50 mg / sennosides, jail 8.6 mg oral tablet (20 sources) Start: 08-24-2020 End: 09-14-2020 Sennosides-Docusate Sodium 1 TABLET tablet Discontinued 2 {tbl} PO TWICE A DAY August 24, 2020 12:00am September 14, 2020 1:34pm Start: 08-24-2020 End: 09-14-2020 take 2 tablets by mouth twice daily Sennosides-Docusate Sodium Discontinued 2 TABLET PO TWICE A DAY August 24, 2020 12:00am September 14, 2020 1:34pm Start: 08-24-2020 End: 09-14-2020 dulaglutide (TRULICITY) 4.5 mg/0.5 mL pen injector (20 sources) Start: 09-09-2022 End: 12-13-2022 inject 4.5 mg by subcutaneous injection every week dulaglutide (TRULICITY) 4.5 mg/0.5 mL pen injector Inject 4.5 mg subcutaneously one time a week. 2 mL 5 09/09/2022 12/13/2022 Discontinued Start: 09-09-2022 inject 4.5 mg by sub cutaneous injection every week dulaglutide (TRULICITY) 4.5 mg/0.5 mL pen injector Inject 4.5 mg subcutaneously one time a week. 2 mL 5 09/09/2022 Active Start: 07-09-2022 End: 09-09-2022 inject 4.5 mg by subcutaneous injection every week dulaglutide (TRULICITY) 4.5 mg/0.5 mL pen injector Inject 4.5 mg subcutaneously one time a week. 2 mL 5 07/09/2022 09/09/2022 Discontinued Start: 07-09-2022 inject 4.5 mg by sub cutaneous injection every week dulaglutide (TRULICITY) 4.5 mg/0.5 mL pen injector Inject 4.5 mg subcutaneously one time a week. 2 mL 5 07/09/2022 Active Start: 03-29-2022 End: 07-09-2022 inject 4.5 mg by subcutaneous injection every week dulaglutide (TRULICITY) 4.5 mg/0.5 mL pen injector Inject 4.5 mg subcutaneously one time a week. 2 mL 5 03/29/2022 07/09/2022 Discontinued Start: 03-29-2022 inject 4.5 mg by sub cutaneous injection every week dulaglutide (TRULICITY) 4.5 mg/0.5 mL pen injector Inject 4.5 mg subcutaneously one time a week. 2 mL 5 03/29/2022 Active Start: 09-25-2021 inject 4.5 mg by sub cutaneous injection every week dulaglutide (TRULICITY) 4.5 mg/0.5 mL pen injector Inject 4.5 mg subcutaneously one time a week. 2 mL 5 09/25/2021 Active Comment on above: Inject 4.5 mg subcut aneously one time a week. empagliflozin 10 mg oral tablet (20 sources) Sodium-Glucose Cotransporter 2 Inhibitor Start: 08-01-20 End: 11-09-20 take 1 tablet by mouth once daily Empagliflozin (Jardiance) 10 mg tablet Discontinued 10 mg PO DAILY December 09, 2022 1:00am November 09, 2024 9:10pm DM Comment on above: Take 1 tablet by patricia th daily with breakfast. Take 10 mg by mouth daily with breakfast. famotidine 20 mg oral tablet (20 sources) Histamine-2 Receptor Antagonist Start: 02-15-20 End: 07-09-20 take 1 tablet by mouth at bedtime as needed famotidine (PEPCID) 20 mg tablet Indications: GERD without esophagitis Take 1 tablet by mouth at bedtime as needed. 30 tablet 5 02/14/2021 07/09/2022 Discontinued Comment on above: Take 1 tablet by patricia th at bedtime as needed. fluconazole 150 mg oral tablet (20 sources) Azole Antifungal Start: 01-25-20 End: 01-25-20 fluconazole (DIFLUCAN) 150 mg tablet Indications: Vaginal rasta Take 1 tablet by mouth one time only for 1 dose. Repeat in 3 days if needed. 2 tablet 0 01/25/2022 01/25/2022 Start: 12-20-2013 End: 01-05-2014 take 1 tablet by mouth once daily Fluconazole 100 MG tablet Discontinued 100 mg PO DAILY 7 December 20, 2013 1:00am January 05, 2014 2:21am Comment on above: Take 1 tablet by patricia th one time only for 1 dose. Repeat in 3 days if needed. FLUoxetine 20 mg oral capsule (4 sources) Serotonin Reuptake Inhibitor Start: 1 End: 2 take 1 capsule by mouth once daily FLUoxetine (PROZAC) 20 mg capsule Indications: Anxiety with depression Take 1 capsule by mouth once daily. 30 capsule 2 02/14/2021 01/25/2022 Discontinued (Side Effects) Comment on above: Take 1 capsule by mo uth once daily. furosemide 20 mg oral tablet (20 sources) Loop Diuretic Start: End: Furosemide 20 mg tablet Discontinued 20 mg PO NEEDED as needed for Edema December 09, 2022 1:00am November 09, 2024 9:09pm Start: 10-18-2022 End: 12-12-2022 take 1 tablet by mouth twice daily furosemide (LASIX) 20 mg tablet Indications: Acute diastolic CHF (congestive heart failure) (HCC) , Bilateral lower extremity edema Take 1 tablet by mouth twice daily. Take BID with 80 mg lasix to equal 100 mg BID 60 tablet 2 10/18/2022 12/12/2022 Discontinued Start: 09-22-2022 take 2 tablets by [facility] once daily Start: 03-31-2022 End: 09-22-2022 take 3 tablets by mouth twice daily Furosemide 40 mg tablet Discontinued 120 mg PO TWICE A DAY 0 3 March 31, 2022 10:45pm September 22, 2022 4:34pm diuretic Start: 03-29-2022 End: 09-22-2022 furosemide (LASIX) 40 mg tab let Indications: Chronic diastolic heart failure (HCC) Take 1-2 tablets BID for lower extremity edema 120 tablet 2 07/09/2022 07/09/2022 Discontinued Start: 08-20-2021 End: 03-31-2022 take 2 tablets by mouth twice daily Furosemide 40 mg tablet Discontinued 80 mg PO TWICE A DAY August 20, 2021 10:26am March 31, 2022 10:45pm diuretic Start: 07-17-2021 End: 09-22-2022 take 80 mg by mouth twice daily Furosemide Discontinue d 80 MG PO TWICE A DAY August 20, 2021 10:26am March 31, 2022 10:45pm Start: 07-17-2021 End: 09-22-2022 take 120 mg by mouth twice daily Furosemide Discontinued 120 MG PO TWICE A DAY 0 March 31, 2022 10:45pm September 22, 2022 4:34pm Start: 06-22-2021 End: 01-14-2022 take 1 tablet by mouth twice daily Furosemide 40 mg tablet Discontinued 40 mg PO TWICE A DAY July 17, 2021 12:00am August 20, 2021 10:28am diuretic Comment on above: Take 1-2 tablets BID for lower extremity edema Take 1 tablet by patricia th twice daily. Take 1 tablet by patricia th twice daily. Take BID with 80 mg lasix to equal 100 mg BID gabapentin 800 mg oral tablet (20 sources) Anti-epileptic Agent Start: 03-19-2022 End: 06-24-2024 take 1 tablet by mouth three times daily Gabapentin 800 mg tablet Discontinued 800 mg PO THREE TIMES A DAY December 09, 2022 1:00am July 14, 2023 11:39am NERVE PAIN Start: 12-12-2021 End: 03-19-2022 gabapentin (NEURONTIN) 300 m g capsule Indications: Type 2 diabetes mellitus with diabetic polyneuropathy, with long-term current use of insulin (HCC) Take three tablets in the AM, One tablet in the afternoon and three tablets in the evening 0 01/25/2022 03/19/2022 Discontinued (Changing Therapy/Dosage Form) Start: 04-24-2021 End: 08-03-2021 take 3 capsules by mouth twice daily gabapentin (NEURONTIN) 300 mg capsule Indications: Neuropathy Take 3 capsules by mouth twice daily for 90 days. 180 capsule 2 04/24/2021 08/03/2021 Discontinued Start: 05-29-2017 take 800 mg by mouth three times daily Gabapentin Active 800 MG PO THREE TIMES A DAY May 29, 2017 8:22pm Start: 05-29-2017 take 900 mg by mouth twice daily Gabapentin Active 900 MG PO TWICE A DAY May 29, 2017 9:22pm Start: 02-02-2017 End: 05-29-2017 take 1 capsule by mouth three times daily Gabapentin (Neurontin) 300 MG capsule Discontinued 300 mg PO THREE TIMES A DAY 90 0 February 02, 2017 1:00am May 29, 2017 9:22pm Start: 02-02-2017 End: 05-29-2017 Comment on above: Take 3 capsules by m outh twice daily for 90 days. Take 1 tablet by patricia th three times daily for 30 days. Take three tablets i n the AM, One tablet in the afternoon and three tablets in the evening TAKE 1 TABLET BY PATRICIA TH THREE TIMES A DAY Take 1 tablet by patricia th three times daily. Take 1 tablet by patricia th three times daily. Do not start before May 05, 2023. 12 hr guaiFENesin 1200 mg extended release oral tablet (11 sources) Start: 2022 End: 2022 take 1 tablet by mouth twice daily, then take 1 tablet by mouth every twelve hours Guaifenesin (Mucus Relief Er) 1,200 mg Tablet Extended Release 12hr Discontinued 1200 mg PO TWICE A DAY 0 0 April 25, 2023 12:00am July 14, 2023 11:39am hydroCHLOROthiazide 12.5 mg oral tablet (20 sources) Thiazide Diuretic Start: 2021 End: 2021 take 1 tablet by mouth once daily Hydrochlorothiazide 12.5 mg tablet Discontinued 12.5 mg PO DAILY January 15, 2022 1:00am January 17, 2022 12:25pm BP Start: 06-22-2021 End: 10-15-2021 take 1 tablet by mouth once daily hydroCHLOROthiazide (HYDRODIURIL, ESIDRIX) 12.5 mg tablet Take 1 tablet by mouth once daily. 90 tablet 06/22/2021 10/15/2021 Discontinued Comment on above: Take 1 tablet by patricia th once daily. 3 ml insulin aspart, human 100 unt/ml pen injector (20 sources) Insulin Analog Start: 11-06-2021 End: 03-05-2022 insulin aspart U-100 (NOVOLOG FLEXPEN U-100 INSULIN) 100 unit/mL (3 mL) Inject 48 units plus sliding scale three times daily before meals (Sliding scale: 2 units for every 50 points >150; TDD 150 units) 15 Pen 11 01/25/2022 03/05/2022 Discontinued Start: 05-23-2021 End: 09-06-2021 insulin aspart U-100 (NOVOLO G FLEXPEN U-100 INSULIN) 100 unit/mL (3 mL) Inject 32 Units subcutaneously three times daily before meals. 10 Pen 5 05/23/2021 09/06/2021 Discontinued (Adjust Sig - Block E-Cancel) Start: 02-15-2020 End: 08-24-2020 inject 38 [IU] by subcutaneous injection three times daily at mealtime Insulin Aspart U-100 100 UNITS/ML insulin pen Discontinued 38 U subcut 3 TIMES DAILY WITH MEALS February 15, 2020 1:17am August 24, 2020 10:28am diabetes Start: 02-15-2020 End: 08-24-2020 inject 38 [IU] by subcutaneous injection three times daily at mealtime Insulin Aspart U-100 Discontinued 38 UNITS subcut 3 TIMES DAILY WITH MEALS February 15, 2020 1:17am August 24, 2020 10:28am Start: 10-08-2017 End: 02-15-2020 Insulin Aspart U-100 100 UNI TS/ML insulin pen Discontinued 35 U SC 3 TIMES DAILY WITH MEALS 0 0 October 08, 2017 12:30pm February 15, 2020 1:18am Start: 10-08-2017 End: 02-15-2020 Insulin Aspart U-100 Discont inued 35 UNITS SC 3 TIMES DAILY WITH MEALS 0 October 08, 2017 12:30pm February 15, 2020 1:18am Start: 02-02-2017 End: 10-08-2017 Insulin Aspart U-100 (Novolo g Flexpen U-100 Insulin) 100 UNITS/ML Flexpen Discontinued 30 U SC 3 TIMES DAILY WITH MEALS February 02, 2017 6:26pm October 08, 2017 12:30pm Start: 04-09-2014 End: 02-02-2017 Insulin Aspart U-100 (Novolo g Flexpen U-100 Insulin) 100 UNITS/ML Flexpen Discontinued 26 U SC 3 TIMES DAILY WITH MEALS 30 3 April 09, 2014 12:00am February 02, 2017 6:26pm dispense 5mm needles, syringes, alcohol swabs and Accuchek strips for checks AC and HS 1 month supply Start: 04-09-2014 End: 08-24-2020 Comment on above: Inject 42 units plus sliding scale three times daily before meals (Sliding scale: 2 units for every 50 points >150; TDD 150 units) Inject 48 units plus sliding scale three times daily before meals (Sliding scale: 2 units for every 50 points >150; TDD 150 units) Inject 32 Units subc utaneously three times daily before meals. 3 ml insulin degludec 200 unt/ml pen injector (14 sources) Insulin Analog Start: 12-24-2022 End: 07-14-2023 Insulin Degludec (Tresiba Flextouch U-200) 200 unit/mL (3 mL) insulin pen Discontinued 104 U SC TWICE A DAY December 24, 2022 10:27pm July 14, 2023 11:43am DM Start: 09-24-2022 End: 12-24-2022 Insulin Degludec (Tresiba Fl extouch U-200) 200 unit/mL (3 mL) insulin pen Discontinued 95 U SC TWICE A DAY 28.5 30 0 September 24, 2022 12:37pm December 24, 2022 10:27pm DM Start: 03-28-2022 End: 03-29-2022 insulin degludec (TRESIBA FL EXTOUCH U-200) 200 unit/mL (3 mL) injection Inject 110 Units subcutaneously twice daily. 11 Pen 5 03/28/2022 03/29/2022 Discontinued Start: 01-15-2022 Insulin Deglud ec (Tresiba Flextouch U-200) 200 unit/mL (3 mL) insulin pen Active 100 UNIT SC TWICE A DAY January 15, 2022 6:42pm Start: 01-15-2022 End: 09-24-2022 Insulin Degludec (Tresiba Fl extouch U-200) 200 unit/mL (3 mL) insulin pen Discontinued 92 U SC TWICE A DAY January 15, 2022 1:00am September 24, 2022 12:37pm DM Start: 09-06-2021 End: 03-28-2022 insulin degludec (TRESIBA FL EXTOUCH U-200) 200 unit/mL (3 mL) injection Inject 100 Units subcutaneously twice daily. This replaces Levemir. 10 Pen 5 02/28/2022 03/28/2022 Discontinued Comment on above: Inject 100 Units sub cutaneously twice daily. This replaces Levemir. Inject 110 Units sub cutaneously twice daily. Insulin Degludec (Tresiba Flextouch U-200) 200 unit/mL (3 mL) insulin pen (20 sources) Start: 12-24-2022 End: 07-14-2023 Insulin Degludec (Tresiba Flextouch U-200) 200 unit/mL (3 mL) insulin pen Discontinued 104 U SC TWICE A DAY December 24, 2022 10:27pm July 14, 2023 11:43am DM Start: 12-24-2022 End: 07-14-2023 Insulin Degludec (Tresiba Fl extouch U-200) 200 unit/mL (3 mL) insulin pen Discontinued 104 UNIT SC TWICE A DAY December 24, 2022 9:27pm July 14, 2023 10:43am Start: 12-24-2022 End: 07-14-2023 Insulin Degludec (Tresiba Fl extouch U-200) 200 unit/mL (3 mL) insulin pen Discontinued 104 UNIT SC TWICE A DAY December 24, 2022 10:27pm July 14, 2023 11:43am Start: 12-24-2022 Insulin Deglud ec (Tresiba Flextouch U-200) 200 unit/mL (3 mL) insulin pen Active 104 UNIT SC TWICE A DAY December 24, 2022 10:27pm Start: 12-24-2022 Insulin Deglud ec (Tresiba Flextouch U-200) 200 unit/mL (3 mL) insulin pen Active 104 UNIT SC TWICE A DAY December 24, 2022 9:27pm Start: 09-24-2022 End: 12-24-2022 Insulin Degludec (Tresiba Fl extouch U-200) 200 unit/mL (3 mL) insulin pen Discontinued 95 U SC TWICE A DAY 28.5 September 24, 2022 12:37pm December 24, 2022 10:27pm DM Start: 09-24-2022 End: 12-24-2022 Insulin Degludec (Tresiba Fl extouch U-200) 200 unit/mL (3 mL) insulin pen Discontinued 95 UNIT SC TWICE A DAY 28.5 September 24, 2022 12:37pm December 24, 2022 10:27pm Start: 09-24-2022 End: 12-24-2022 Insulin Degludec (Tresiba Fl extouch U-200) 200 unit/mL (3 mL) insulin pen Discontinued 95 UNIT SC TWICE A DAY 28.5 September 24, 2022 11:37am December 24, 2022 9:27pm Start: 09-24-2022 Insulin Deglud ec (Tresiba Flextouch U-200) 200 unit/mL (3 mL) insulin pen Active 95 UNIT SC TWICE A DAY 28.5 September 24, 2022 11:37am Start: 09-24-2022 Insulin Deglud ec (Tresiba Flextouch U-200) 200 unit/mL (3 mL) insulin pen Active 95 UNIT SC TWICE A DAY 28.5 September 24, 2022 12:37pm Start: 01-15-2022 End: 09-24-2022 Insulin Degludec (Tresiba Fl extouch U-200) 200 unit/mL (3 mL) insulin pen Discontinued 92 U SC TWICE A DAY January 15, 2022 1:00am September 24, 2022 12:37pm DM Start: 01-15-2022 End: 09-24-2022 Insulin Degludec (Tresiba Fl extouch U-200) 200 unit/mL (3 mL) insulin pen Discontinued 92 UNIT SC TWICE A DAY January 15, 2022 12:00am September 24, 2022 11:37am Start: 01-15-2022 End: 09-24-2022 Insulin Degludec (Tresiba Fl extouch U-200) 200 unit/mL (3 mL) insulin pen Discontinued 92 UNIT SC TWICE A DAY January 15, 2022 1:00am September 24, 2022 12:37pm Start: 01-15-2022 Insulin Deglud ec (Tresiba Flextouch U-200) 200 unit/mL (3 mL) insulin pen Active 92 UNIT SC TWICE A DAY January 15, 2022 1:00am 3 ml insulin detemir 100 unt/ml pen injector (1 source) Insulin Analog Start: 06-22-2021 End: 09-06-2021 inject 100 [IU] by subcutaneous injection twice daily insulin detemir U-100 (LEVEMIR FLEXTOUCH U-100 INSULIN) 100 unit/mL (3 mL) injection pen Indications: Type 2 diabetes mellitus with diabetic polyneuropathy, with long-term current use of insulin (HCC) Inject 100 Units subcutaneously twice daily. 60 mL 2 06/22/2021 09/06/2021 Discontinued 3 ml insulin lispro 100 unt/ml pen injector (20 sources) Insulin Analog Start: 07-08-2023 insulin lispro (HUMALOG KWIKPEN INSULIN) 100 unit/mL Inject 50 units plus sliding scale three times daily before meals (Sliding scale: 2 units for every 50 points >150; TDD 150 units) 15 Each 0 07/08/2023 Active Start: 10-30-2022 End: 07-08-2023 insulin lispro (HUMALOG KWIK PEN INSULIN) 100 unit/mL [The details of the medication are not available because there are pending changes by a home health clinician.] 15 Each 5 10/30/2022 07/08/2023 Discontinued Start: 09-24-2022 Insulin Lispro (Humalog Kwikpen Insulin) 100 unit/mL Insulin Pen Active 50 UNIT SC THREE TIMES DAILY BEFORE MEALS September 24, 2022 12:00am Start: 03-05-2022 End: 10-30-2022 insulin lispro (HUMALOG KWIK PEN INSULIN) 100 unit/mL Inject 48 units plus sliding scale three times daily before meals (Sliding scale: 2 units for every 50 points >150; TDD 150 units) 15 Pen 5 07/09/2022 10/30/2022 Discontinued Start: 03-26-2021 End: 09-24-2022 Insulin Lispro 100 unit/mL i nsulin pen Discontinued 48 U SC THREE TIMES DAILY BEFORE MEALS March 26, 2021 11:19am September 24, 2022 12:35pm diabetes Start: 03-26-2021 Insulin Lispro Active 42 UNIT SC THREE TIMES DAILY BEFORE MEALS March 26, 2021 11:19am Start: 08-24-2020 End: 03-26-2021 Insulin Lispro 100 UNIT/ML i nsulin pen Discontinued 20 U SC THREE TIMES DAILY BEFORE MEALS 1 August 24, 2020 12:00am March 26, 2021 11:23am Start: 08-24-2020 End: 09-14-2020 Insulin Lispro 100 UNIT/ML i nsulin pen Discontinued 0 U SC BEFORE MEALS AND AT BEDTIME Protocol: - Use for Total Daily Dose of Insulin 81-120 units- Very insulin resistant or septic patientsHIGH DOSING ALGORITHM Condition: 150-209 mg/dl = 3 units Condition: 210-259 mg/dl = 6 units Condition: 260-324 mg/dl = 9 units Condition: 325-374 mg/dl = 12 units Condition: 375-409 mg/dl = 14 units Condition: 410-449 mg/dl = 16 units Condition: Greater than 449 call physician 1 August 24, 2020 12:00am September 14, 2020 1:33pm Please contact the information source for Protocol details. Start: 08-24-2020 End: 09-14-2020 Insulin Lispro 100 UNIT/ML i nsulin pen Discontinued 0 U SC BEFORE MEALS AND AT BEDTIME 1 August 24, 2020 12:00am September 14, 2020 1:33pm Please contact the information source for Protocol details. Start: 08-24-2020 End: 09-24-2022 Insulin Lispro Discontinued 0 UNIT SC BEFORE MEALS AND AT BEDTIME August 24, 2020 12:00am September 14, 2020 1:33pm Comment on above: Inject 48 units plus sliding scale three times daily before meals (Sliding scale: 2 units for every 50 points >150; TDD 150 units) Inject 50 units plus sliding scale three times daily before meals (Sliding scale: 2 units for every 50 points >150; TDD 150 units) [The details of the medication are not available because there are pending changes by a home health clinician.] ammonium lactate 120 mg/ml topical lotion (20 sources) Start: 2 ammonium lactate (LAC-HYDRIN) 12 % lotion Apply 1 application to affected area three times daily. Apply to bilateral lower extremities 0 03/07/2023 Active Comment on above: Apply 1 application to affected area three times daily. Apply to bilateral lower extremities linezolid 600 mg oral tablet (13 sources) Oxazolidinone Antibacterial Start: 3 End: 3 take 1 tablet by mouth twice daily Linezolid (Zyvox) 600 mg tablet Discontinued 600 mg PO TWICE A DAY 14 April 28, 2023 12:00am July 14, 2023 11:39am Start: 01-18-2022 take 600 mg by mouth every twelve hours Linezolid Active 600 MG PO Q12H 12 January 18, 2022 1:52pm Nebulizers (20 sources) Start: 08-24-2020 End: 09-23-2020 Nebulizers Discontinued 1 EA CH MC DIRECTED 12 30August 24, 2020 10:29am September 23, 2020 12:03am Use nebulizer machine and kit as directed per aerosols. Start: 08-24-2020 End: 09-23-2020 Nebulizers Discontinued 1 EA CH MC DIRECTED 12 30August 23, 2020 11:00pm September 22, 2020 11:03pm Use nebulizer machine and kit as directed per aerosols. Start: 08-24-2020 End: 09-23-2020 Nebulizers Discontinued 1 EA CH MC DIRECTED 12 30August 24, 2020 12:00am September 23, 2020 12:03am Use nebulizer machine and kit as directed per aerosols. Nebulizers 1 EACH misc (2 sources) Start: 08-24-2020 End: 09-23-2020 Nebulizers 1 EACH misc Discontinued 1 NMA MC DIRECTED August 24, 2020 12:00am September 22, 2020 12:00am September 23, 2020 12:03am Respiratory failure with hypoxia Community acquired pneumonia Acute exacerbation of chronic obstructive pulmonary disease Respiratory failure, unspecified with hypoxia Pneumonia, unspecified organism Chronic obstructive pulmonary disease with (acute) exacerbation COPD, PNA Use nebulizer machine and kit as directed per aerosols. 24 hr nicotine 0.875 mg/hr transdermal system (20 sources) Cholinergic Nicotinic Agonist Start: 07-14-2023 End: 11-09-2024 apply 1 dose topically every twenty-four hours Nicotine 21 mg/24 hr patch 24 hour Discontinued 1 NMA TOPICAL Q24H July 14, 2023 12:00am November 09, 2024 9:09pm quit smoking Start: 07-14-2023 apply 1 dose topical ly every twenty-four hours Nicotine Active 1 PATCH TOPICAL Q24H July 14, 2023 12:00am Start: 07-08-2023 apply 1 dose transde rmal route every twenty-four hours nicotine (NICODERM) 21 mg/24 hr Indications: Tobacco use Apply 1 Patch as directed every 24 hours. 42 Patch 0 07/08/2023 Active Start: 12-09-2022 Start: 12-09-2022 Nicotine (Emanuel crilex) Active 2 MG PO NEEDED December 09, 2022 1:00am Start: 10-18-2022 End: 11-17-2022 Nicotine Polacrilex 2 mg mejia enge Indications: Tobacco use Place 1 Lozenge between cheek and gum as needed. 48 Lozenge 2 10/18/2022 11/17/2022 Start: 09-24-2022 Nicotine (Emanuel crilex) Active 4 MG BUCCAL Q2H 110 September 24, 2022 11:42am Start: 09-24-2022 Nicotine Activ e 21 MG TD DAILY September 23, 2022 11:00pm Start: 12-13-2021 End: 01-25-2022 Nicotine Polacrilex [address] 1 Lozenge between cheek and gum as needed. Not to exceed 20 lozenges/day 72 Lozenge 5 12/13/2021 01/25/2022 Discontinued (Course of therapy completed) Start: 12-18-2018 End: 03-01-2020 apply 21 mg transdermal route once daily Nicotine 21 MG patch Discontinued 21 mg TRANSDERM. DAILY 30 0 December 18, 2018 1:00am March 01, 2020 10:36am Start: 12-18-2018 End: 03-01-2020 Comment on above: Place 1 Lozenge betw een cheek and gum as needed. Not to exceed 20 lozenges/day Place 1 Lozenge betw een cheek and gum as needed. Apply 1 Patch as dir ected every 24 hours. [place] Fatty Acids (20 sources) Start: 03-26-2017 End: 03-01-2020 take 1000 mg by mouth once daily [place] Fatty Acids Discontinued 1000 MG PO DAILY March 26, 2017 6:01pm March 01, 2020 10:35am Start: 03-26-2017 End: 03-01-2020 take 1000 mg by mouth once daily [place] Fatty Acids Discontinued 1000 MG PO DAILY March 25, 2017 11:00pm March 01, 2020 9:35am Start: 03-26-2017 End: 03-01-2020 take 1000 mg by mouth once daily [place]-3 Fatty Acids Discontinued 1000 MG PO DAILY March 26, 2017 12:00am March 01, 2020 10:35am [place] Fatty Acids 1,000 MG capsule (2 sources) Start: 03-26-2017 End: 03-01-2020 take 1 capsule by mouth once daily [place] Fatty Acids 1,000 MG capsule Discontinued 1000 mg PO DAILY March 26, 2017 12:00am March 01, 2020 10:35am supplement Oxygen, Home (Home Oxygen) (20 sources) Start: 01-04-2019 End: 08-24-2020 Oxygen, Home (Home Oxygen) Discontinued 3 - 4 LPM NASAL DAILY January 04, 2019 11:34pm August 24, 2020 10:34am oxygen therapyu Home oxygen therapy 2 L oxygen per nasal cannula at rest 3 L oxygen per nasal cannula with ambulation Please evaluate for conserving device Diagnosis acute hypoxemic respiratory failure Initial certification; duration 6 months Further recertification per primary care physician Start: 01-04-2019 End: 08-24-2020 Oxygen, Home (Home Oxygen) D iscontinued 3 - 4 LPM NASAL DAILY January 04, 2019 10:34pm August 24, 2020 9:34am Home oxygen therapy 2 L oxygen per nasal cannula at rest 3 L oxygen per nasal cannula with ambulation Please evaluate for conserving device Diagnosis acute hypoxemic respiratory failure Initial certification; duration 6 months Further recertification per primary care physician Start: 01-04-2019 End: 08-24-2020 Oxygen, Home (Home Oxygen) D iscontinued 3 - 4 LPM NASAL DAILY January 04, 2019 11:34pm August 24, 2020 10:34am Home oxygen therapy 2 L oxygen per nasal cannula at rest 3 L oxygen per nasal cannula with ambulation Please evaluate for conserving device Diagnosis acute hypoxemic respiratory failure Initial certification; duration 6 months Further recertification per primary care physician Start: 09-13-2017 End: 01-04-2019 Oxygen, Home (Home Oxygen) D iscontinued 2 - 3 LPM NASAL DAILY September 13, 2017 2:12pm January 04, 2019 11:34pm Home oxygen therapy 2 L oxygen per nasal cannula at rest 3 L oxygen per nasal cannula with ambulation Please evaluate for conserving device Diagnosis acute hypoxemic respiratory failure Initial certification; duration 6 months Further recertification per primary care physician Start: 09-13-2017 End: 01-04-2019 Oxygen, Home (Home Oxygen) D iscontinued 2 - 3 LPM NASAL DAILY September 12, 2017 11:00pm January 04, 2019 10:34pm Home oxygen therapy 2 L oxygen per nasal cannula at rest 3 L oxygen per nasal cannula with ambulation Please evaluate for conserving device Diagnosis acute hypoxemic respiratory failure Initial certification; duration 6 months Further recertification per primary care physician Start: 09-13-2017 End: 01-04-2019 Oxygen, Home (Home Oxygen) D iscontinued 2 - 3 LPM NASAL DAILY September 13, 2017 12:00am January 04, 2019 11:34pm Home oxygen therapy 2 L oxygen per nasal cannula at rest 3 L oxygen per nasal cannula with ambulation Please evaluate for conserving device Diagnosis acute hypoxemic respiratory failure Initial certification; duration 6 months Further recertification per primary care physician OXYGEN, HOME THERAPY, (20 sources) Start: 02-23-2023 OXYGEN, HOME T HERAPY, 3 L/min by Nasal Cannula route continuous. 3-5L per pulse ox and oxygen requirements 0 02/23/2023 Active Start: 02-23-2023 OXYGEN, HOME T HERAPY, [The details of the medication are not available because there are pending changes by a home health clinician.] 0 02/23/2023 Active Start: 02-23-2023 OXYGEN, HOME T HERAPY, 3 L/min by Nasal Cannula route continuous. 3 to 4L 0 02/23/2023 Active Start: 05-29-2021 End: 11-25-2021 OXYGEN, HOME THERAPY, Inhale 2 L/min as instructed as directed. 4 Canister 5 05/29/2021 11/25/2021 Comment on above: Inhale 2 L/min as in structed as directed. 3 L/min by Nasal Can nula route continuous. 3 to 4L [The details of the medication are not available because there are pending changes by a home health clinician.] 3 L/min by Nasal Can nula route continuous. 3-5L per pulse ox and oxygen requirements perflutren lipid microspheres 1.3 mL in NaCl (PF) 0.9% 10 mL injection (DEFINITY) (20 sources) Start: 07-09-2022 End: 10-08-2023 perflutren lipid microspheres 1.3 mL in NaCl (PF) 0.9% 10 mL injection (DEFINITY) Start: 01-23-2022 End: 04-24-2023 perflutren lipid microsphere s 1.3 mL in NaCl (PF) 0.9% 10 mL injection (DEFINITY) pioglitazone (20 sources) Peroxisome Proliferator Receptor alpha Agonist, Peroxisome Proliferator Receptor gamma Agonist, Thiazolidinedione Start: 04-06-2014 End: 04-09-2014 Actos Discontinued April 06, 2014 4:36pm April 09, 2014 1:27pm Start: 04-06-2014 End: 04-09-2014 Actos Discontinued April 05, 2014 11:00pm April 09, 2014 12:27pm Start: 04-06-2014 End: 04-09-2014 Actos Discontinued April 06, 2014 12:00am April 09, 2014 1:27pm microencapsulated potassium chloride 20 meq extended release oral tablet (20 sources) Start: 06-20-2023 End: 08-05-2024 take 1 tablet by mouth twice daily Potassium Chloride 20 mEq tablet,ER particles/crystals Discontinued 0 .ROUTE .COMPLEX 60 August 14, 2023 4:37pm August 05, 2024 2:20pm TAKE 1 TABLET BY MOUTH TWICE A DAY Start: 08-02-2021 End: 06-20-2023 take 1 tablet by mouth twice daily Potassium Chloride 20 mEq tablet extended release Discontinued 20 meq PO TWICE A DAY 60 July 25, 2022 2:45pm December 19, 2022 9:21pm End: 01-25-2022 potassium chloride ER (K-DUR , KLOR-CON) 20 mEq tablet Take 20 mEq by mouth twice daily. 0 01/25/2022 Discontinued (Duplicate Entry) Comment on above: Take 1 tablet by patricia th twice daily. Take 20 mEq by mouth twice daily. predniSONE 10 mg oral tablet (20 sources) Start: 04-25-2023 End: 07-14-2023 Prednisone 10 mg tablet Discontinued 10 mg PO DAILY 40 0 April 25, 2023 12:00am July 14, 2023 11:40am 4 tablets x 4 days, 3 tablets x 4 days, 2 tablets x 4 days, 1 tablet x 4 days Start: 03-05-2023 End: 06-24-2023 take 2 tablets by mouth once daily at breakfast predniSONE (DELTASONE) 20 mg tablet Take 40 mg by mouth once daily. 40 mg by mouth with breakfast for 5 days 0 03/07/2023 06/24/2023 Discontinued Start: 12-09-2022 take 60 mg by mouth once daily Prednisone Active 60 MG PO DAILY December 09, 2022 12:00am Start: 11-01-2022 take 50 mg by mouth once daily Prednisone Active 50 MG PO DAILY 04 04November 01, 2022 12:00am Start: 09-24-2022 take 40 mg by mouth once daily Prednisone Active 40 MG PO DAILY 09 04September 23, 2022 11:00pm Start: 01-17-2022 End: 03-19-2022 predniSONE (DELTASONE) 10 mg tablet Take 4 tabs for 3 days, take 3 tabs for 3 days, take 2 tabs for 3 days, and take 1 tab for 3 days 0 01/17/2022 03/19/2022 Discontinued (Course of therapy completed) Start: 07-18-2021 End: 08-20-2021 take 2 tablets by mouth at breakfast Prednisone 20 mg Tablet Discontinued 40 mg PO WITH BREAKFAST 6 July 18, 2021 12:00am August 20, 2021 10:28am Start: 07-18-2021 End: 08-20-2021 take 40 mg by mouth at breakfast Prednisone Discontinu ed 40 MG PO WITH BREAKFAST July 18, 2021 12:00am August 20, 2021 10:28am Start: 08-24-2020 End: 09-14-2020 take 2 tablets by mouth once daily Prednisone 20 MG tablet Discontinued 40 mg PO DAILY@0800 5 August 24, 2020 12:00am September 14, 2020 1:34pm Start: 08-24-2020 End: 09-14-2020 take 40 mg by mouth once daily Prednisone Discontinued 40 MG PO DAILY@0800 August 24, 2020 12:00September 14, 2020 1:34pm Comment on above: Take 4 tabs for 3 da ys, take 3 tabs for 3 days, take 2 tabs for 3 days, and take 1 tab for 3 days Take 40 mg by mouth once daily. 40 mg by mouth with breakfast for 5 days semaglutide (OZEMPIC) 1 mg/dose (4 mg/3 mL) pen (20 sources) Start: 12-13-19 End: 07-08-20 inject 1 mg by subcutaneous injection every week semaglutide (OZEMPIC) 1 mg/dose (4 mg/3 mL) pen Inject 1 mg subcutaneously one time a week. This REPLACES Trulicity. 3 mL 12/13/2022 07/08/2023 Discontinued Start: 12-13-2022 inject 1 mg by subcu taneous injection every week semaglutide (OZEMPIC) 1 mg/dose (4 mg/3 mL) pen Inject 1 mg subcutaneously one time a week. This REPLACES Trulicity. 3 mL 5 12/13/2022 Suspended Start: 12-13-2022 inject 1 mg by subcu taneous injection every week semaglutide (OZEMPIC) 1 mg/dose (4 mg/3 mL) pen Inject 1 mg subcutaneously one time a week. This REPLACES Trulicity. 3 mL 12/13/2022 Active Comment on above: Inject 1 mg subcutan eously one time a week. This REPLACES Trulicity. Shower Chair with Back (20 sources) Start: 01-23-2022 End: 01-23-2023 Shower Chair with Back Indications: SOB (shortness of breath) , Oxygen dependent once daily. Use as directed 1 Each 01/23/2022 01/23/2023 Start: 01-23-2022 End: 01-23-2023 Shower Chair with Back Indic ations: SOB (shortness of breath) , Oxygen dependent once daily. Use as directed 1 Each 0 01/23/2022 01/23/2023 Suspended Start: 01-23-2022 End: 01-23-2023 Shower Chair with Back Indic ations: SOB (shortness of breath) , Oxygen dependent once daily. Use as directed 1 Each 0 01/23/2022 01/23/2023 Active Comment on above: once daily. Use as d irected 125 ml sodium chloride 9 mg/ml prefilled syringe (20 sources) Start: 2 End: 3 sodium chloride 0.9 % (flush) 10 mL (BD POSIFLUSH) traMADol hydrochloride 50 mg oral tablet (4 sources) Opioid Agonist Start: 2 End: 2 traMADol (ULTRAM) 50 mg tablet PRN for pain 0 01/17/2022 03/19/2022 Discontinued (Course of therapy completed) Comment on above: PRN for pain varenicline 1 mg oral tablet (2 sources) Partial Cholinergic Nicotinic Agonist Start: 1 End: 1 take 1 tablet by mouth twice daily varenicline (CHANTIX CONTINUING MONTH BOX) 1 mg tablet Indications: Tobacco use Take 1 tablet by mouth twice daily. 60 tablet 2 02/14/2021 09/25/2021 Discontinued (Adjust Sig - Block E-Cancel) Comment on above: Take 1 tablet by patricia th twice daily. Problems Active Problems Problem Classification Problem Date Documented Da te Episodic/Chronic Abdominal pain (20 sources) Right flank pain; Translations: [Unspecified abdominal pain] 07-11-2019 Episodic Acute and unspecified renal failure (2 sources) Prerenal azotemia; Translations: [Unspecified kidney failure] 08-16-2025 Chronic Acute and unspecified renal failure (20 sources) Injury of kidney; Translations: [Acute kidney failure, unspecified] Onset: 5 Episodic Acute bronchitis (19 sources) Acute exacerbation of chronic bronchitis; Translations: [Acute bronchitis, unspecified] 12-17-2022 Episodic Anal and rectal conditions (15 sources) Perianal abscess; Translations: [Anal abscess] 03-02-2023 Episodic Anxiety disorders (20 sources) Anxiety; Translations: [Anxiety disorder, unspecified] Onset: 5 02-12-2017 Chronic Asthma (1 source) Reactive airway disease; Translations: [Unspecified asthma with (acute) exacerbation] Chronic Dong (19 sources) Burn of multiple sites of hand; Translations: [Burn of unspecified degree of multiple right fingers (nail), not including thumb, initial encounter] 12-17-2022 Episodic Cardiac dysrhythmias (2 sources) Tachycardia; Translations: [Tachycardia, unspecified] Episodic Chronic kidney disease (16 sources) Chronic kidney disease; Translations: [Chronic kidney disease, unspecified] 12-24-2022 Chronic Chronic obstructive pulmonary disease and bronchiectasis (20 sources) Acute exacerbation of chronic obstructive airways disease; Translations: [Chronic obstructive pulmonary disease with (acute) exacerbation] Onset: 5 Chronic Chronic ulcer of skin (9 sources) Pressure ulcer of other site, stage 2; Translations: [Pressure ulcer, other site] Onset: 5 Chronic Coagulation and hemorrhagic disorders (14 sources) Blood coagulation disorder; Translations: [Coagulation defect, unspecified] 02-18-2023 Chronic Complications of surgical procedures or medical care (14 sources) Post-operative wound cellulitis; Translations: [Infection following a procedure, other surgical site, initial encounter] 02-18-2023 Episodic Conditions associated with dizziness or vertigo (1 source) Lightheadedness; Translations: [Dizziness and giddiness] Episodic Congestive heart failure; nonhypertensive (20 sources) Chronic diastolic heart failure; Translations: [Chronic diastolic (congestive) heart failure] Onset: 4 Chronic Coronary atherosclerosis and other heart disease (20 sources) Old myocardial infarction; Translations: [Old myocardial infarction] Onset: 5 Chronic Deficiency and other anemia (2 sources) Anemia, unspecified; Translations: [Chronic anemia] Onset: 3 Episodic Deficiency and other anemia (11 sources) Anemia; Translations: [Anemia, unspecified] 05-03-2023 Episodic Diabetes mellitus with complications (20 sources) Neuropathy due to diabetes mellitus; Translations: [Type 2 diabetes mellitus with diabetic neuropathy, unspecified] Onset: 3 04-03-2017 Chronic Diabetes mellitus without complication (20 sources) Type 2 diabetes mellitus; Translations: [Type 2 diabetes mellitus without complications] Onset: 5 12-19-2022 Chronic Diabetes mellitus without complication (20 sources) Hyperglycemia; Translations: [Hyperglycemia, unspecified] 12-09-2022 Episodic Disorders of lipid metabolism (20 sources) Hyperlipidemia; Translations: [Hyperlipidemia, unspecified] Onset: 3 04-03-2017 Chronic Esophageal disorders (20 sources) Gastroesophageal reflux disease; Translations: [Gastro-esophageal reflux disease without esophagitis] Onset: 5 02-12-2017 Chronic Essential hypertension (20 sources) Essential hypertension; Translations: [Essential (primary) hypertension] Onset: 8 12-22-2017 Chronic Fluid and electrolyte disorders (20 sources) Acute hyponatremia; Translations: [Hypo-osmolality and hyponatremia] Onset: 3 Episodic Genitourinary symptoms and ill-defined conditions (1 source) Genuine stress incontinence; Translations: [Stress incontinence (female) (male)] Chronic Genitourinary symptoms and ill-defined conditions (20 sources) Microalbuminuria; Translations: [Proteinuria, unspecified] 04-03-2017 Episodic Mood disorders (1 source) Major depressive disorder, single episode, mild; Translations: [Major depressive disorder, single episode, mild] Onset: 5 Chronic Mood disorders (1 source) Mood disorders; Translations: [Depression, unspecified] Onset: 5 Mycoses (2 sources) Candidiasis of vagina; Translations: [Candidiasis of vulva and vagina] Episodic Neoplasms of unspecified nature or uncertain behavior (20 sources) Monoclonal gammopathy of uncertain significance; Translations: [Monoclonal gammopathy] Onset: 9 12-24-2018 Chronic Nonspecific chest pain (20 sources) Atypical chest pain; Translations: [Other chest pain] Episodic Open wounds of extremities (1 source) Open wounds involving multiple regions of lower limb(s); Translations: [Unspecified open wound, unspecified lower leg, initial encounter] Episodic Other aftercare (16 sources) Long-term current use of anticoagulant; Translations: [intermediate manager (current) use of anticoagulants] 12-24-2022 Episodic Other aftercare (1 source) intermediate manager (current) use of insulin; Translations: [Type 2 diabetes mellitus with diabetic polyneuropathy, with long-term current use of insulin (HCC)] Onset: 3 Episodic Other aftercare (1 source) Post-discharge follow-up; Translations: [Encounter for follow-up examination after completed treatment for conditions other than malignant neoplasm] Episodic Other and unspecified benign neoplasm (20 sources) Adenoma of left adrenal gland; Translations: [Benign neoplasm of left adrenal gland] 07-11-2019 Episodic Other circulatory disease (2 sources) Other specified peripheral vascular diseases; Translations: [Other specified peripheral vascular diseases] Onset: 5 Chronic Other circulatory disease (1 source) Abnormal peripheral pulse; Translations: [Other specified symptoms and signs involving the circulatory and respiratory systems] Episodic Other connective tissue disease (20 sources) Pain in right lower limb; Translations: [Pain in right leg] 01-16-2022 Episodic Other connective tissue disease (4 sources) Pain in right leg; Translations: [Pain in limb] Onset: 5 Episodic Other connective tissue disease (1 source) Pain of toe of left foot; Translations: [Pain in left toe(s)] Episodic Other connective tissue disease (1 source) Pain of toe of right foot; Translations: [Pain in right toe(s)] Episodic Other connective tissue disease (4 sources) Necrotizing fasciitis; Translations: [Necrotizing fasciitis] Onset: 3 01-13-2023 Episodic Other connective tissue disease (1 source) Necrotizing fasciitis; Translations: [Necrotizing fasciitis (HCC)] Onset: 3 Episodic Other connective tissue disease (1 source) Other specified soft tissue disorders; Translations: [Necrotizing soft tissue infection] Onset: 3 Episodic Other diseases of veins and lymphatics (1 source) Peripheral venous insufficiency; Translations: [Venous insufficiency (chronic) (peripheral)] Episodic Other diseases of veins and lymphatics (11 sources) Stasis dermatitis; Translations: [Venous insufficiency (chronic) (peripheral)] 03-02-2023 Episodic Other diseases of veins and lymphatics (3 sources) Venous insufficiency (chronic) (peripheral); Translations: [Varicose veins of lower extremities with inflammation] Onset: 5 03-05-2023 Episodic Other diseases of veins and lymphatics (5 sources) Disorder of vein of lower extremity; Translations: [Venous insufficiency (chronic) (peripheral)] 03-13-2023 Episodic Other endocrine disorders (20 sources) Adrenal incidentaloma; Translations: [Other specified disorders of adrenal gland] Onset: 9 08-09-2019 Chronic Other gastrointestinal disorders (20 sources) Constipation; Translations: [Constipation, unspecified] 07-11-2019 Episodic Other gastrointestinal disorders (2 sources) Dysphagia, unspecified; Translations: [Dysphagia, unspecified] Onset: 5 Episodic Other injuries and conditions due to external causes (20 sources) Closed injury of head; Translations: [Unspecified injury of head, initial encounter] 01-26-2022 Episodic Other injuries and conditions due to external causes (2 sources) Unspecified injury of head, initial encounter; Translations: [Head injury, unspecified] Episodic Other injuries and conditions due to external causes (1 source) Other injury of unspecified body region, initial encounter; Translations: [Wound infection] Onset: 3 Episodic Other injuries and conditions due to external causes (1 source) Traumatic subcutaneous emphysema, initial encounter; Translations: [Subcutaneous air, initial encounter ([facility])] Onset: 3 Episodic Other lower respiratory disease (20 sources) Restrictive lung disease; Translations: [Other disorders of lung] 12-09-2022 Episodic Other lower respiratory disease (20 sources) Dyspnea on exertion; Translations: [Dyspnea, unspecified] 06-16-2020 Episodic Other lower respiratory disease (20 sources) Dyspnea; Translations: [Dyspnea, unspecified] 07-14-2021 Episodic Other lower respiratory disease (12 sources) Hypoxia; Translations: [Hypoxemia] Episodic Other lower respiratory disease (1 source) Decreased breath sounds; Translations: [Other abnormalities of breathing] 07-09-2022 Episodic Other nervous system disorders (20 sources) Meralgia paresthetica; Translations: [Meralgia paresthetica, unspecified lower limb] 01-05-2019 Chronic Other nervous system disorders (20 sources) Disorder of brain; Translations: [Encephalopathy, unspecified] 08-20-2021 Chronic Other nervous system disorders (20 sources) Neuropathy; Translations: [Polyneuropathy, unspecified] 11-26-2019 Chronic Other nervous system disorders (18 sources) Metabolic encephalopathy; Translations: [Metabolic encephalopathy] 12-19-2022 Chronic Other nervous system disorders (18 sources) Unable to walk; Translations: [Difficulty in walking, not elsewhere classified] 12-18-2022 Chronic Other nervous system disorders (7 sources) Metabolic encephalopathy; Translations: [Metabolic encephalopathy] 12-18-2022 Chronic Other nervous system disorders (7 sources) Difficulty in walking, not elsewhere classified; Translations: [Difficulty in walking] 12-18-2022 Chronic Other nervous system disorders (2 sources) Encephalopathy, unspecified; Translations: [Encephalopathy, unspecified] 03-05-2023 Chronic Other nervous system disorders (1 source) Walking disability; Translations: [Difficulty in walking, not elsewhere classified] Chronic Other nervous system disorders (1 source) Other chronic pain; Translations: [Other chronic pain] Onset: 5 Chronic Other nervous system disorders (2 sources) Tremor; Translations: [Tremor, unspecified] Episodic Other nervous system disorders (1 source) Tremor, unspecified; Translations: [Tremor] Onset: 3 Episodic Other nutritional; endocrine; and metabolic disorders (20 sources) Morbid obesity; Translations: [Morbid (severe) obesity due to excess calories] 02-12-2017 Chronic Other nutritional; endocrine; and metabolic disorders (20 sources) Body mass index 40+ - severely obese; Translations: [Morbid (severe) obesity due to excess calories] Onset: 1 11-20-2021 Chronic Other nutritional; endocrine; and metabolic disorders (5 sources) Morbid (severe) obesity due to excess calories; Translations: [Morbid obesity] Onset: 3 Chronic Other nutritional; endocrine; and metabolic disorders (2 sources) Body mass index (BMI) 60.0-69.9, adult; Translations: [Body Mass Index 60.0-69.9, adult] Onset: 5 03-05-2023 Chronic Other nutritional; endocrine; and metabolic disorders (11 sources) H/O: diabetes mellitus; Translations: [Personal history of other endocrine, nutritional and metabolic disease] 05-03-2023 Episodic Other screening for suspected conditions (not mental disorders or infectious disease) (20 sources) Patient encounter status; Translations: [Encounter for screening mammogram for malignant neoplasm of breast] Onset: 5 Episodic Other skin disorders (1 source) Keratosis; Translations: [Epidermal thickening, unspecified] Episodic Other upper respiratory disease (20 sources) Acute bronchospasm; Translations: [Acute bronchospasm] 12-17-2022 Episodic Other upper respiratory disease (2 sources) Acute bronchospasm; Translations: [Acute bronchospasm] 03-05-2023 Episodic Other upper respiratory infections (1 source) Streptococcal sore throat; Translations: [Streptococcal pharyngitis] Episodic Pneumonia (except that caused by tuberculosis or sexually transmitted disease) (20 sources) Community acquired pneumonia; Translations: [Pneumonia, unspecified organism] Episodic Poisoning by other medications and drugs (20 sources) Overdose of opiate; Translations: [Poisoning by unspecified narcotics, accidental (unintentional), initial encounter] 06-16-2020 Episodic Pulmonary heart disease (20 sources) Acute pulmonary embolism; Translations: [Other pulmonary embolism without acute cor pulmonale] Onset: 9 12-24-2018 Episodic Residual codes; unclassified (20 sources) 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 syndrome; Translations: [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 (adult) (pediatric)] 02-12-2017 Chronic Comment on above: [id number] Residual codes; unclassified (4 sources) 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 (adult) (pediatric); Translations: [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 (adult)(pediatric)] Onset: 5 Chronic Residual codes; unclassified (20 sources) Insomnia; Translations: [Insomnia, unspecified] 04-03-2017 Episodic Residual codes; unclassified (20 sources) Altered mental status; Translations: [Altered mental status, unspecified] 08-20-2021 Episodic Residual codes; unclassified (20 sources) Bilateral lower limb edema; Translations: [Localized edema] Episodic Residual codes; unclassified (1 source) Other specified postprocedural states; Translations: [Status post incision and drainage] Onset: 3 Episodic Residual codes; unclassified (14 sources) Unable to comply with treatment; Translations: [Poor compliance with continuous positive airway pressure treatment] 03-02-2023 Episodic Residual codes; unclassified (1 source) Did not attend - reason given; Translations: [Failure to attend appointment with reason given] Episodic Respiratory failure; insufficiency; arrest (adult) (20 sources) Chronic hypoxemic respiratory failure; Translations: [Chronic respiratory failure with hypoxia] Onset: 4 Chronic Respiratory failure; insufficiency; arrest (adult) (20 sources) Hypoxemic respiratory failure; Translations: [Respiratory failure, unspecified with hypoxia] Onset: 3 08-20-2020 Episodic Screening and history of mental health and substance abuse codes (20 sources) Tobacco use and exposure - finding; Translations: [Personal history of nicotine dependence] 08-01-2021 Episodic Septicemia (except in labor) (20 sources) Sepsis; Translations: [Sepsis, unspecified organism] Onset: 3 08-20-2021 Episodic Skin and subcutaneous tissue infections (20 sources) Cellulitis of lower limb; Translations: [Cellulitis of unspecified part of limb] Onset: 3 08-20-2021 Episodic Spondylosis; intervertebral disc disorders; other back problems (20 sources) Spasm of back muscles; Translations: [Muscle spasm of back] 02-16-2020 Episodic Substance-related disorders (20 sources) Nicotine dependence; Translations: [Nicotine dependence, unspecified, uncomplicated] Onset: 3 12-27-2022 Chronic Superficial injury; contusion (4 sources) Contusion of toe(s) with damage to nail; Translations: [Contusion of right great toe with damage to nail, initial encounter] Onset: 5 08-18-2025 Episodic Unclassified (1 source) Respiratory acidosis; Translations: [Respiratory acidosis] Onset: 3 Unclassified (1 source) Low back pain, unspecified; Translations: [Low back pain, unspecified] Onset: 5 Unclassified (1 source) MESSAGE LEFT WITH OFFICE, OFFICE WILL CALL AND SCHEDULE APPT WITH PATIENT Past or Other Problems Problem Classification Problem Date Documented Date Episodic/Chronic Bacterial infection; unspecified site (17 sources) Gas gangrene of limb; Translations: [Gas gangrene] Onset: 11-12-2024 12-24-2022 Episodic Biliary tract disease (20 sources) Gallstone; Translations: [Calculus of gallbladder without cholecystitis without obstruction] Onset: 10-30-2007 Resolved: 11-20-2021 10-30-2007 Episodic Deficiency and other anemia (20 sources) Chronic anemia; Translations: [Anemia, unspecified] Onset: 12-25-2022 12-25-2022 Episodic Open wounds of head; neck; and trunk (20 sources) Open wound of inguinal region; Translations: [Unspecified open wound of abdominal wall, unspecified quadrant without penetration into peritoneal cavity, initial encounter] Onset: 02-19-2023 02-20-2023 Episodic Other connective tissue disease (20 sources) Necrotizing soft tissue infection; Translations: [Other specified soft tissue disorders] Onset: 12-25-2022 12-25-2022 Episodic Results Test Name Value Interpretation Reference Range Facil ity Culture, Blood (WB)on 2024 CUB Blood cultures x2, from two different sites No growth in 5 days. Normal [facility] Comment on above: Performed By: #### L 501.080 #### [facility] [address] [place], [address] Wound Cultureon 08-20-2025 WC Copy of report sent to Infection Control Printer [id number] 08/19/25 [id number] JENNIFER. Wound Culture Meth. resistant Staph. aureus Amount Growth 1+ mecA Testing not performed STRTHO Amount Growth Rare Streptococcus thoraltensis Amount Growth Rare Meth. resistant Staph. aureus: REACTION Streptococcus mitis/ oralis Doxycycline Islt VIKTOR <=0.5 Clindamycin Islt VIKTOR 0.25 S Clindamycin.induced Susc Islt Erythromycin Islt VIKTOR >=8 R Gentamicin Islt VIKTOR <=0.5 S Linezolid Islt VIKTOR 2 S Moxifloxacin Islt VIKTOR 2 S Oxacillin Susc Islt >=4 R Tetracycline Islt VIKTOR <=1 S TMP SMX Islt VIKTOR <=10 S Vancomycin Islt VIKTOR 1 S Streptococcus thoraltensis: REACTION Ampicillin Islt VIKTOR 0.50 I Penicillin G Islt VIKTOR 0.5 I Cefotaxime Islt VIKTOR 0.5 S cefTRIAXone Islt VIKTOR 0.5 Erythromycin Islt VIKTOR 4 R Linezolid Islt VIKTOR <=2 S Vancomycin Islt VIKTOR <=0.12 S Streptococcus mitis/ oralis: REACTION Ampicillin Islt VIKTOR 4 I Penicillin G Islt VIKTOR 2 I Cefotaxime Islt VIKTOR 0.5 S cefTRIAXone Islt VIKTOR 0.5 Linezolid Islt VIKTOR <=2 S Vancomycin Islt VIKTOR 0.5 S Normal [facility] Comment on above: Performed By: #### L 501.080 #### [facility] [address] [place], [address] Absolute lymphocyte countOrd ered By: Jersey Pradhan on 08-19-2025 Lymphocytes Auto (Unsp spec) [#/Vol] 1.98 10*3/uL 0.83-4.51 [facility] Absolute neutrophil countOrd ered By: Jersey Pradhan on 08-19-2025 Neutrophils (Bld) [#/Vol] 4.9 10*3/uL 2.0-7.7 [facility] Anion gap in Serum or Plasma Ordered By: Jersey Pradhan on 08-19-2025 Anion gap [Moles/Vol] 10 mmol/L 5- [facility] Automated lymphocyte count a s percentage of total leukocytesOrdered By: Jersey Pradhan on 08-19-2025 Lymphocytes/100 WBC Auto (Unsp spec) 25.6 % [facility] BUN/creatinine ratioOrdered By: Jersey Pradhan on 08-19-2025 Urea nitrogen/Creatinine [Mass ratio] 26.4 mg/mg High 09-19 [facility] Basic Metabolic Profile (BMP )on 08-19-2025 BUN/CRE 26.4 RATIO High 09-19 [facility] Comment on above: Performed By: #### L [id number] #### [facility] [address] [place], [address] Calcium [Mass/Vol] 9.5 mg/dL Normal 7.6-11.0 [facility] Comment on above: Performed By: #### L [id number] #### [facility] [address] [place], [address] Chloride [Moles/Vol] 89 mmol/L Low 98-[address] [facility] Comment on above: Performed By: #### L [id number] #### [facility] [address] [place], [address] CO2 [Moles/Vol] 35.7 mmol/L High 21.0-32.0 [facility] Comment on above: Performed By: #### L [id number] #### [facility] [address] [place], [address] Creatinine [Mass/Vol] 0.93 mg/dL Normal 0.70-1.20 [facility] Comment on above: Performed By: #### L [id number] #### [facility] [address] [place], [address] ECRCL 126.36 ml/min Normal 50-250 [facility] Comment on above: Performed By: #### L [id number] #### [facility] [address] [place], [address] GAP 10 Normal 5-15 [facility] Comment on above: Performed By: #### L 499.0043 #### [facility] [address] [place], [address] GFR/1.73 sq M.predicted among non-blacks MDRD (S/P/Bld) [Vol rate/Area] 76 mL/min/{1.73_m2} Normal >60 [facility] Comment on above: Result Comment: mL/m in/1.73m2 CKD-EPI Creatinine Equation (2020) Performed By: #### L 499.0043 #### [facility] [address] [place], [address] Glucose [Mass/Vol] 397 mg/dL High 70-99 [facility] Comment on above: Performed By: #### L 499.0043 #### [facility] [address] [place], [address] Potassium [Moles/Vol] 4.0 mmol/L Normal 3.3-5.1 [facility] Comment on above: Performed By: #### L 499.0043 #### [facility] [address] [place], [address] Sodium [Moles/Vol] 135 mmol/L Normal 133-145 [facility] Comment on above: Performed By: #### L 499.0043 #### [facility] [address] [place], [address] Urea nitrogen [Mass/Vol] 25 mg/dL High - [facility] Comment on above: Performed By: #### L 499.0043 #### [facility] [address] [place], [address] Basophil percentageOrdered B y: Jersey Pradhan on 08-19-2025 Basophils/100 WBC (Bld) 0.9 % 0-1 [facility] Bedside Glucoseon 08-19-2025 FINGERSTICK GLU 393 mg/dL High 74-106 [facility] Comment on above: Result Comment: CESAR OLEARY OF PATIENT CARE PER NURSING PROTOCOL Performed By: #### L 499.0043 #### [facility] [address] [place], [address] CBC W/Diff, Automatedon 08-01 Absolute Lymph 1.98 X10 3/uL Normal 0.83-4.51 [facility] Comment on above: Performed By: #### L 499.0043 #### [facility] [address] [place], [address] Absolute Neut 4.9 X10 3/uL Normal 2.0-7.7 [facility] Comment on above: Performed By: #### L 499.0043 #### [facility] [address] [place], [address] Basophils/100 WBC (Bld) 0.9 % Normal 0-1 [facility] Comment on above: Performed By: #### L [id number] #### [facility] [address] [place], [address] Eosinophils/100 WBC (Bld) 3.2 % Normal 0-5 [facility] Comment on above: Performed By: #### L [id number] #### [facility] [address] [place], [address] Erythrocyte distribution width (RBC) [Ratio] 13.2 % Normal 11.6-14.6 [facility] Comment on above: Performed By: #### L [id number] #### [facility] [address] [place], [address] Hematocrit (Bld) [Volume fraction] 32.7 % Low 37-47 [facility] Comment on above: Performed By: #### L 499.0043 #### [facility] [address] [place], [address] Hemoglobin (Bld) [Mass/Vol] 10.2 g/dL Low 12.0-15.0 [facility] Comment on above: Performed By: #### L 499.0043 #### [facility] [address] [place], [address] IG% 1.000 High 0.0-0.9 [facility] Comment on above: Result Comment: IG% - Immature Granulocytes (promyelocytes, myelocytes and metamyelocytes) > 1% indicates that a LEFT SHIFT is Present. Performed By: #### L 499.0043 #### [facility] [address] [place], [address] Lymphocytes/100 WBC (Bld) 25.6 % Normal 19-41 [facility] Comment on above: Performed By: #### L 499.0043 #### [facility] [address] [place], [address] MCH (RBC) [Entitic mass] 28.3 pg Normal 27.0-32.0 [facility] Comment on above: Performed By: #### L 499.0043 #### [facility] [address] [place], [address] MCHC (RBC) [Mass/Vol] 31.2 g/dL Low 32-36 [facility] Comment on above: Performed By: #### L [id number] #### [facility] [address] [place], [address] MCV (RBC) [Entitic vol] 90.8 fL Normal 81-99 [facility] Comment on above: Performed By: #### L 499.0043 #### [facility] [address] [place], [address] Monocytes/100 WBC (Bld) 6.0 % Normal 0-10 [facility] Comment on above: Performed By: #### L [id number] #### [facility] [address] [place], [address] Neutrophils/100 WBC (Bld) 63.3 % Normal 47-70 [facility] Comment on above: Performed By: #### L [id number] #### [facility] [address] [place], [address] Nucleated RBC (Bld) [#/Vol] 0 10*3/uL Normal 0-5 [facility] Comment on above: Performed By: #### L 499.0043 #### [facility] [address] [place], [address] Platelet mean volume (Bld) [Entitic vol] 10.0 fL Normal 6.2-12.0 [facility] Comment on above: Performed By: #### L 499.0043 #### [facility] [address] [place], [address] Platelets (Bld) [#/Vol] 277 10*3/uL Normal 150-450 [facility] Comment on above: Performed By: #### L [id number] #### [facility] [address] [place], [address] RBC (Bld) [#/Vol] 3.60 10*6/uL Low 4.2-5.4 [facility] Comment on above: Performed By: #### L 499.0043 #### [facility] [address] [place], [address] RDW SD 43.4 fl Normal 35.1-43.9 [facility] Comment on above: Performed By: #### L [id number] #### [facility] [address] [place], [address] WBC (Bld) [#/Vol] 7.7 10*3/uL Normal 4.4-11.0 [facility] Comment on above: Performed By: #### L 499.0043 #### [facility] [address] [place], [address] Carbon dioxide, total [Moles /volume] in Central venous bloodOrdered By: Jersey Pradhan on 08-19-2025 CO2 [Moles/Vol] 35.7 mmol/L High 21.0-32.0 [facility] Chloride assayOrdered By: Jonathan Pradhan on 08-19-2025 Chloride [Moles/Vol] 89 mmol/L Low 98-[address] [facility] Eosinophil percentageOrdered By: Jersey Pradhan on 08-19-2025 Eosinophils/100 WBC (Bld) 3.2 % 0-5 [facility] Erythrocyte distribution wid th ratioOrdered By: Jersey Pradhan on 08-19-2025 Erythrocyte distribution width (RBC) [Ratio] 13.2 % 11.6-14.6 [facility] Erythrocyte distribution wid th standard deviationOrdered By: Jersey Pradhan on 08-19-2025 Erythrocyte distribution width (RBC) [Ratio] 43.4 fl 35.1-43.9 [facility] Glomerular filtration rate ( GFR) estimation/1.73 sq m using serum, plasma, or whole bOrdered By: Jersey Pradhan on 08-19-2025 GFR/1.73 sq M.predicted among non-blacks MDRD (S/P/Bld) [Vol rate/Area] 76 mL/min/{1.73_m2} >60 [facility] Comment on above: mL/min/1.73m2 CKD-EP I Creatinine Equation (2020) Glucose measurement at bedsi deOrdered By: Jersey Pradhan on 08-19-2025 Glucose [Mass/Vol] 371 mg/dL High 74-106 [facility] Comment on above: MANAGEMENT OF PATIEN T CARE PER NURSING PROTOCOL Hematocrit Auto (Bld) [Volum e fraction]Ordered By: Jersey Pradhan on 08-19-2025 Hematocrit (Bld) [Volume fraction] 32.7 % Low 37-47 [facility] Hemoglobin measurementOrdere d By: Jersey Pradhan on 08-19-2025 Hemoglobin (Bld) [Mass/Vol] 10.2 g/dL Low 12.0-15.0 [facility] Immature granulocytes/100 WB C Auto (Bld)Ordered By: Jersey Pradhan on 08-19-2025 Immature granulocytes/100 WBC (Bld) 1.000 % High 0.0-0.9 [facility] Comment on above: IG% - Immature Granu locytes (promyelocytes, myelocytes and metamyelocytes) > 1% indicates that a LEFT SHIFT is Present. MCV (mean corpuscular volume ) determinationOrdered By: Jersey Pradhan on 08-19-2025 MCV (RBC) [Entitic vol] 90.8 fL 81-99 [facility] Mean corpuscular hemoglobin (MCH) determinationOrdered By: Jersey Pradhan on 08-19-2025 MCH (RBC) [Entitic mass] 28.3 pg 27.0-32.0 [facility] Mean corpuscular hemoglobin concentration (MCHC) determinationOrdered By: Jersey Pradhan on 08-19-2025 MCHC (RBC) [Mass/Vol] 31.2 g/dL Low 32-36 [facility] Mean platelet volume determi nationOrdered By: Jersey Pradhan on 08-19-2025 Platelet mean volume (Bld) [Entitic vol] 10.0 fL 6.2-12.0 [facility] Monocyte percentageOrdered B y: Jersey Pradhan on 08-19-2025 Monocytes/100 WBC (Bld) 6.0 % 0-10 [facility] Neutrophil percentageOrdered By: Jersey Pradhan on 08-19-2025 Neutrophils/100 WBC (Bld) 63.3 % 47-70 [facility] Nucleated red blood cell per centageOrdered By: Jersey Pradhan on 08-19-2025 Nucleated RBC/100 WBC (Bld) [Ratio] 0 % 0-5 [facility] Platelet countOrdered By: Jonathan Pradhan on 08-19-2025 Platelets (Bld) [#/Vol] 277 10*3/uL 150-450 [facility] Potassium measurement (mass/ volume)Ordered By: Jersey Pradhan on 08-19-2025 Potassium (Unsp spec) [Mass/Vol] 4.0 mmol/L 3.3-5.1 [facility] RBC Auto (Bld) [#/Vol]Ordere d By: Jersey Pradhan on 08-19-2025 RBC (Bld) [#/Vol] 3.60 10*6/uL Low 4.2-5.4 [facility] Serum creatinine measurement (mass/volume)Ordered By: Jersey Pradhan on 08-19-2025 Creatinine [Mass/Vol] 0.93 mg/dL 0.70-1.20 [facility] Serum glucose measurement (m ass/volume)Ordered By: Jersey Pradhan on 08-19-2025 Glucose [Mass/Vol] 397 mg/dL High 70-99 [facility] Serum or plasma calcium yunior urement (mass/volume)Ordered By: Jersey Pradhan on 08-19-2025 Calcium [Mass/Vol] 9.5 mg/dL 7.6-11.0 [facility] Serum or plasma urea nitroge n measurement (mass/volume)Ordered By: Jersey Pradhan on 08-19-2025 Urea nitrogen [Mass/Vol] 25 mg/dL High 4-19 [facility] Sodium levelOrdered By: Ceferino Pradhan on 08-19-2025 Sodium [Moles/Vol] 135 mmol/L 133-145 [facility] Trough vancomycin levelOrder ed By: Olamide Mas on 08-19-2025 Vancomycin trough [Mass/Vol] 19.6 ug/mL High 5.0-15.0 [facility] Comment on above: Recommended goal tro ugh ranges are generally 10-15 mcg/ml for less severe/complicated infections such as cellulitis or UTI and 15-20 mcg/ml for more severe/complicated infections such as bacteremia/sepsis, osteomyelitis, pneumonia or meningitis. Goal trough ranges should take into account indication, patient-specific factors and organism VIKTOR.VANCOMYCIN STANDARED DRUG THERAPY TROUGH LEVEL: 5.0 - 15.0 mg/L VANCOMYCIN HIGH INTENSITY THERAPY TROUGH LEVEL: 15.0 - 20.0 mg/L High Intensity therapy recommended for serious lifethreatening infections include:- Cbfasmrabo-Czolkaoxqrqu-Zzaixswyt (Ventilator/Healtcare Associated)-Sepsis PLEASE CONTACT PHARMACY SERVICES (#9141) FOR INTERPRETATIONOF RESULTS. Vancomycin, Trough Levelon 0 08-19-2025 VANCO, TROUGH 19.6 ug/mL High 5.0-15.0 [facility] Comment on above: Order Comment: Comme nts: Trough to be drawn 30 mins prior to scheduled [id number] Result Comment: Jefferson mmended goal trough ranges are generally 10-15 mcg/ml for less severe/complicated infections such as cellulitis or UTI and 15-20 mcg/ml for more severe/complicated infections such as bacteremia/sepsis, osteomyelitis, pneumonia or meningitis. Goal trough ranges should take into account indication, patient-specific factors and organism VIKTOR. VANCOMYCIN STANDARED DRUG THERAPY TROUGH LEVEL: 5.0 - 15.0 mg/L VANCOMYCIN HIGH INTENSITY THERAPY TROUGH LEVEL: 15.0 - 20.0 mg/L High Intensity therapy recommended for serious life threatening infections include: - Meningitis -Endocarditis -Pneumonia (Ventilator/Healtcare Associated) -Sepsis PLEASE CONTACT PHARMACY SERVICES (#[id number]) FOR INTERPRETATION OF RESULTS. Performed By: #### L [id number] #### [facility] [address] [place], [address] White blood cell (WBC) count Ordered By: Jersey Pradhan on 08-19-2025 WBC (Bld) [#/Vol] 7.7 10*3/uL 4.4-11.0 [facility] Basic Metabolic Profile (BMP )on 08-18-2025 BUN/CRE 26.4 RATIO High 10-20 [facility] Comment on above: Performed By: #### L 501.080 #### [facility] [address] [place], [address] Calcium [Mass/Vol] 8.3 mg/dL Normal 7.6-11.0 [facility] Comment on above: Performed By: #### L 501.080 #### [facility] [address] [place], [address] Chloride [Moles/Vol] 93 mmol/L Low 98-[address] [facility] Comment on above: Performed By: #### L 501.080 #### [facility] [address] [place], [address] CO2 [Moles/Vol] 35.0 mmol/L High 21.0-32.0 [facility] Comment on above: Performed By: #### L 501.080 #### [facility] [address] [place], [address] Creatinine [Mass/Vol] 0.92 mg/dL Normal 0.70-1.20 [facility] Comment on above: Performed By: #### L 501.080 #### [facility] [address] [place], [address] ECRCL 127.12 ml/min Normal 50-250 [facility] Comment on above: Performed By: #### L 501.080 #### [facility] [address] [place], [address] GAP 11 Normal 5-15 [facility] Comment on above: Performed By: #### L 501.080 #### [facility] [address] [place], [address] GFR/1.73 sq M.predicted among non-blacks MDRD (S/P/Bld) [Vol rate/Area] 76 mL/min/{1.73_m2} Normal >60 [facility] Comment on above: Result Comment: mL/m in/1.73m2 CKD-EPI Creatinine Equation (2020) Performed By: #### L 501.080 #### [facility] [address] [place], [address] Glucose [Mass/Vol] 288 mg/dL High 70-99 [facility] Comment on above: Performed By: #### L 501.080 #### [facility] [address] [place], [address] Potassium [Moles/Vol] 3.8 mmol/L Normal 3.3-5.1 [facility] Comment on above: Performed By: #### L 501.080 #### [facility] [address] [place], [address] Sodium [Moles/Vol] 139 mmol/L Normal 133-145 [facility] Comment on above: Performed By: #### L 501.080 #### [facility] [address] [place], [address] Urea nitrogen [Mass/Vol] 24 mg/dL High 4-19 [facility] Comment on above: Performed By: #### L 501.080 #### [facility] [address] [place], [address] Bedside Glucoseon 08-18-2025 FINGERSTICK GLU 458 mg/dL Invalid Interpretation Code 74-106 [facility] Comment on above: Result Comment: Dr Pedro watts Followed MANAGEMENT OF PATIENT CARE PER NURSING PROTOCOL Performed By: #### L 501.080 #### [facility] [address] [place], [address] FINGERSTICK GLU 460 mg/dL Invalid Interpretation Code 74-106 [facility] Comment on above: Result Comment: Dr Pedro watts Followed MANAGEMENT OF PATIENT CARE PER NURSING PROTOCOL Performed By: #### L 501.080 #### [facility] [address] [place], [address] FINGERSTICK GLU 456 mg/dL Invalid Interpretation Code 74-106 [facility] Comment on above: Result Comment: Dr Pedro watts Followed MANAGEMENT OF PATIENT CARE PER NURSING PROTOCOL Performed By: #### L 501.080 #### [facility] [address] [place], [address] FINGERSTICK GLU 341 mg/dL High 74-106 [facility] Comment on above: Result Comment: CESAR GEMENT OF PATIENT CARE PER NURSING PROTOCOL Performed By: #### L 501.080 #### [facility] [address] [place], [address] FINGERSTICK GLU 279 mg/dL High 74-106 [facility] Comment on above: Result Comment: CESAR GEMENT OF PATIENT CARE PER NURSING PROTOCOL Performed By: #### L 509.7001 #### [facility] [address] [place], [address] CBC W/Diff, Automatedon -12 08-2024 Absolute Lymph 1.89 X10 3/uL Normal 0.83-4.51 [facility] Comment on above: Performed By: #### L 501.080 #### [facility] [address] [place], [address] Absolute Neut 4.6 X10 3/uL Normal 2.0-7.7 [facility] Comment on above: Performed By: #### L 501.080 #### [facility] [address] [place], [address] Basophils/100 WBC (Bld) 1.0 % Normal 0-1 [facility] Comment on above: Performed By: #### L 501.080 #### [facility] [address] [place], [address] Eosinophils/100 WBC (Bld) 3.2 % Normal 0-5 [facility] Comment on above: Performed By: #### L 501.080 #### [facility] [address] [place], [address] Erythrocyte distribution width (RBC) [Ratio] 13.5 % Normal 11.6-14.6 [facility] Comment on above: Performed By: #### L 501.080 #### [facility] [address] [place], [address] Hematocrit (Bld) [Volume fraction] 29.6 % Low 37-47 [facility] Comment on above: Performed By: #### L 501.080 #### [facility] [address] [place], [address] Hemoglobin (Bld) [Mass/Vol] 9.2 g/dL Low 12.0-15.0 [facility] Comment on above: Performed By: #### L 501.080 #### [facility] [address] [place], [address] IG% 0.400 Normal 0.0-0.9 [facility] Comment on above: Result Comment: IG% - Immature Granulocytes (promyelocytes, myelocytes and metamyelocytes) > 1% indicates that a LEFT SHIFT is Present. Performed By: #### L 501.080 #### [facility] [address] [place], [address] Lymphocytes/100 WBC (Bld) 26.4 % Normal 19-41 [facility] Comment on above: Performed By: #### L 501.080 #### [facility] [address] [place], [address] MCH (RBC) [Entitic mass] 28.6 pg Normal 27.0-32.0 [facility] Comment on above: Performed By: #### L 501.080 #### [facility] [address] [place], [address] MCHC (RBC) [Mass/Vol] 31.1 g/dL Low 32-36 [facility] Comment on above: Performed By: #### L 501.080 #### [facility] [address] [place], [address] MCV (RBC) [Entitic vol] 91.9 fL Normal 81-99 [facility] Comment on above: Performed By: #### L 501.080 #### [facility] [address] [place], [address] Monocytes/100 WBC (Bld) 5.0 % Normal 0-10 [facility] Comment on above: Performed By: #### L 501.080 #### [facility] [address] [place], [address] Neutrophils/100 WBC (Bld) 64.0 % Normal 47-70 [facility] Comment on above: Performed By: #### L 501.080 #### [facility] [address] [place], [address] Nucleated RBC (Bld) [#/Vol] 0 10*3/uL Normal 0-5 [facility] Comment on above: Performed By: #### L 501.080 #### [facility] [address] [place], [address] Platelet mean volume (Bld) [Entitic vol] 9.9 fL Normal 6.2-12.0 [facility] Comment on above: Performed By: #### L 501.080 #### [facility] [address] [place], [address] Platelets (Bld) [#/Vol] 251 10*3/uL Normal 150-450 [facility] Comment on above: Performed By: #### L 501.080 #### [facility] [address] [place], [address] RBC (Bld) [#/Vol] 3.22 10*6/uL Low 4.2-5.4 [facility] Comment on above: Performed By: #### L 501.080 #### [facility] [address] [place], [address] RDW SD 45.6 fl High 35.1-43.9 [facility] Comment on above: Performed By: #### L 501.080 #### [facility] [address] [place], [address] WBC (Bld) [#/Vol] 7.2 10*3/uL Normal 4.4-11.0 [facility] Comment on above: Performed By: #### L 501.080 #### [facility] [address] [place], [address] Magnesiumon 08-18-2025 Magnesium [Mass/Vol] 1.7 mg/dL Normal 1.5-2.[address] [facility] Comment on above: Performed By: #### L 501.080 #### [facility] [address] [place], [address] Magnesium measurement (mass/ volume)Ordered By: Jersey Pradhan on 08-18-2025 Magnesium (Unsp spec) [Mass/Vol] 1.7 mg/dL 1.5-2.2 [facility] Phosphoruson 08-18-2025 Phosphate [Mass/Vol] 3.1 mg/dL Normal 2.7-4.[address] [facility] Comment on above: Performed By: #### L 501.080 #### [facility] [address] [place], [address] Serum or plasma vancomycin m easurement (mass/volume)Ordered By: Olamied Mas on 08-18-2025 Vancomycin [Mass/Vol] 12.9 ug/mL 0.0-15.0 [facility] Comment on above: VANCOMYCIN STANDARD DRUG THERAPY: CRITICAL VALUE IS > 15.0 mg/L VANCOMYCIN HIGH INTENSITY THERAPY: CRITICAL VALUE IS > 20.0 mg/L PLEASE CONTACT PHARMACY SERVICES (#4702) FOR INTERPRETATIONOF RESULTS. THIS RESULT DOES NOT REPRESENT A PEAK OR TROUGHLEVEL FOR THIS DRUG. Vancomycin, Random Levelon 0 08-18-2025 VANCO, RANDOM 12.9 ug/mL Normal 0.0-15.0 [facility] Comment on above: Result Comment: VANC OMYCIN STANDARD DRUG THERAPY: CRITICAL VALUE IS > 15.0 mg/L VANCOMYCIN HIGH INTENSITY THERAPY: CRITICAL VALUE IS > 20.0 mg/L PLEASE CONTACT PHARMACY SERVICES (#6404) FOR INTERPRETATION OF RESULTS. THIS RESULT DOES NOT REPRESENT A PEAK OR TROUGH LEVEL FOR THIS DRUG. Performed By: #### L 499.0043 #### [facility] [address] [place], [address] Bedside Glucoseon 08-17-2025 FINGERSTICK GLU 337 mg/dL High [address] [place] [address] Comment on above: Result Comment: CESAR GEMENT OF PATIENT CARE PER NURSING PROTOCOL Performed By: #### L 501.080 #### [facility] [address] [place], [address] FINGERSTICK GLU 383 mg/dL High [address] [place] [address] Comment on above: Result Comment: CESAR GEMENT OF PATIENT CARE PER NURSING PROTOCOL Performed By: #### L 501.080 #### [facility] [address] [place], [address] FINGERSTICK GLU 301 mg/dL High [address] [place] [address] Comment on above: Result Comment: CESAR GEMENT OF PATIENT CARE PER NURSING PROTOCOL Performed By: #### L 501.080 #### [facility] [address] [place], [address] FINGERSTICK GLU 305 mg/dL High [address] [place] [address] Comment on above: Result Comment: CESAR GEMENT OF PATIENT CARE PER NURSING PROTOCOL Performed By: #### L 499.0043 #### [facility] [address] [place], [address] FINGERSTICK GLU 382 mg/dL High 74-106 [facility] Comment on above: Result Comment: CESAR GEMENT OF PATIENT CARE PER NURSING PROTOCOL Performed By: #### L 501.080 #### [facility] [address] [place], [address] FINGERSTICK GLU 395 mg/dL High 74-106 [facility] Comment on above: Result Comment: CESAR GEMENT OF PATIENT CARE PER NURSING PROTOCOL Performed By: #### L 501.080 #### [facility] [address] [place], [address] Bilirubin, totalOrdered By: Olamide Mas on 08-17-2025 Bilirubin [Mass/Vol] 0.19 mg/dL 0.00-1.[address] [facility] CBC W/Diff, Automatedon 08-01 Absolute Lymph 1.89 X10 3/uL Normal 0.83-4.51 [facility] Comment on above: Order Comment: RESUL T(S) PREVIOUSLY REPORTED ON MANUAL REQUISITION DURINGDOWNTIME. Performed By: #### L 501.080 #### [facility] [address] [place], [address] Absolute Neut 6.1 X10 3/uL Normal 2.0-7.7 [facility] Comment on above: Order Comment: RESUL T(S) PREVIOUSLY REPORTED ON MANUAL REQUISITION DURINGDOWNTIME. Performed By: #### L 501.080 #### [facility] [address] [place], [address] Basophils/100 WBC (Bld) 1.0 % Normal 0-1 [facility] Comment on above: Order Comment: RESUL T(S) PREVIOUSLY REPORTED ON MANUAL REQUISITION DURINGDOWNTIME. Performed By: #### L 501.080 #### [facility] [address] [place], [address] Eosinophils/100 WBC (Bld) 2.5 % Normal 0-5 [facility] Comment on above: Order Comment: RESUL T(S) PREVIOUSLY REPORTED ON MANUAL REQUISITION DURINGDOWNTIME. Performed By: #### L 501.080 #### [facility] [address] [place], [address] IG% 0.500 Normal 0.0-0.9 [facility] Comment on above: Order Comment: RESUL T(S) PREVIOUSLY REPORTED ON MANUAL REQUISITION DURINGDOWNTIME. Result Comment: IG% - Immature Granulocytes (promyelocytes, myelocytes and metamyelocytes) > 1% indicates that a LEFT SHIFT is Present. Performed By: #### L 501.080 #### [facility] [address] [place], [address] Lymphocytes/100 WBC (Bld) 21.7 % Normal 19-41 [facility] Comment on above: Order Comment: RESUL T(S) PREVIOUSLY REPORTED ON MANUAL REQUISITION DURINGDOWNTIME. Performed By: #### L 501.080 #### [facility] [address] [place], [address] Monocytes/100 WBC (Bld) 4.7 % Normal 0-10 [facility] Comment on above: Order Comment: RESUL T(S) PREVIOUSLY REPORTED ON MANUAL REQUISITION DURINGDOWNTIME. Performed By: #### L 501.080 #### [facility] [address] [place], [address] Neutrophils/100 WBC (Bld) 69.6 % Normal 47-70 [facility] Comment on above: Order Comment: RESUL T(S) PREVIOUSLY REPORTED ON MANUAL REQUISITION DURINGDOWNTIME. Performed By: #### L 501.080 #### [facility] [address] [place], [address] Platelet mean volume (Bld) [Entitic vol] 10.1 fL Normal 6.2-12.0 [facility] Comment on above: Order Comment: RESUL T(S) PREVIOUSLY REPORTED ON MANUAL REQUISITION DURINGDOWNTIME. Performed By: #### L 501.080 #### [facility] [address] [place], [address] Erythrocyte distribution width (RBC) [Ratio] 13.7 % Normal 11.6-14.6 [facility] Comment on above: Order Comment: RESUL T(S) PREVIOUSLY REPORTED ON MANUAL REQUISITION DURINGDOWNTIME. Performed By: #### L 501.080 #### [facility] [address] [place], [address] Hematocrit (Bld) [Volume fraction] 30.2 % Low 37-47 [facility] Comment on above: Order Comment: RESUL T(S) PREVIOUSLY REPORTED ON MANUAL REQUISITION DURINGDOWNTIME. Performed By: #### L 501.080 #### [facility] [address] [place], [address] Hemoglobin (Bld) [Mass/Vol] 9.3 g/dL Low 12.0-15.0 [facility] Comment on above: Order Comment: RESUL T(S) PREVIOUSLY REPORTED ON MANUAL REQUISITION DURINGDOWNTIME. Performed By: #### L 501.080 #### [facility] [address] [place], [address] MCH (RBC) [Entitic mass] 28.3 pg Normal 27.0-32.0 [facility] Comment on above: Order Comment: RESUL T(S) PREVIOUSLY REPORTED ON MANUAL REQUISITION DURINGDOWNTIME. Performed By: #### L 501.080 #### [facility] [address] [place], [address] MCHC (RBC) [Mass/Vol] 30.8 g/dL Low 32-36 [facility] Comment on above: Order Comment: RESUL T(S) PREVIOUSLY REPORTED ON MANUAL REQUISITION DURINGDOWNTIME. Performed By: #### L 501.080 #### [facility] [address] [place], [address] MCV (RBC) [Entitic vol] 91.8 fL Normal 81-99 [facility] Comment on above: Order Comment: RESUL T(S) PREVIOUSLY REPORTED ON MANUAL REQUISITION DURINGDOWNTIME. Performed By: #### L 501.080 #### [facility] [address] [place], [address] Platelets (Bld) [#/Vol] 221 10*3/uL Normal 150-450 [facility] Comment on above: Order Comment: RESUL T(S) PREVIOUSLY REPORTED ON MANUAL REQUISITION DURINGDOWNTIME. Performed By: #### L 501.080 #### [facility] [address] [place], [address] RBC (Bld) [#/Vol] 3.29 10*6/uL Low 4.2-5.4 [facility] Comment on above: Order Comment: RESUL T(S) PREVIOUSLY REPORTED ON MANUAL REQUISITION DURINGDOWNTIME. Performed By: #### L 501.080 #### [facility] [address] [place], [address] RDW SD 46.1 fl High 35.1-43.9 [facility] Comment on above: Order Comment: RESUL T(S) PREVIOUSLY REPORTED ON MANUAL REQUISITION DURINGDOWNTIME. Performed By: #### L 501.080 #### [facility] [address] [place], [address] WBC (Bld) [#/Vol] 8.7 10*3/uL Normal 4.4-11.0 [facility] Comment on above: Order Comment: RESUL T(S) PREVIOUSLY REPORTED ON MANUAL REQUISITION DURINGDOWNTIME. Performed By: #### L 501.080 #### [facility] [address] [place], [address] Calculated very low density lipoprotein (VLDL) cholesterol measurementOrdered By: Olamide Mas on 08-17-2025 Calculated very low density lipoprotein (VLDL) cholesterol measurement 44 mg/dL High 5-40 [facility] Comprehensive Metabolic Prof ilon 08-17-2025 Albumin [Mass/Vol] 3.5 g/dL Normal 3.5-5.0 [facility] Comment on above: Performed By: #### L 501.080 #### [facility] [address] [place], [address] Albumin/Globulin [Mass ratio] 1.1 {ratio} Normal 0.9-2.4 [facility] Comment on above: Performed By: #### L 501.080 #### [facility] [address] [place], [address] ALK PHOS 76 U/L Normal 35-104 [facility] Comment on above: Performed By: #### L 501.080 #### [facility] [address] [place], [address] ALT [Catalytic activity/Vol] 20 U/L Normal <=34 [facility] Comment on above: Performed By: #### L 501.080 #### [facility] [address] [place], [address] AST [Catalytic activity/Vol] 19 U/L Normal <=31 [facility] Comment on above: Performed By: #### L 501.080 #### [facility] [address] [place], [address] Bilirubin [Mass/Vol] 0.19 mg/dL Normal 0.00-1.[address] [facility] Comment on above: Performed By: #### L 501.080 #### [facility] [address] [place], [address] BUN/CRE 29.9 RATIO High 10-20 [facility] Comment on above: Performed By: #### L 501.080 #### [facility] [address] [place], [address] Calcium [Mass/Vol] 8.1 mg/dL Normal 7.6-11.0 [facility] Comment on above: Performed By: #### L 501.080 #### [facility] [address] [place], [address] Chloride [Moles/Vol] 92 mmol/L Low 98-[address] [facility] Comment on above: Performed By: #### L 501.080 #### [facility] [address] [place], [address] CO2 [Moles/Vol] 28.0 mmol/L Normal 21.0-32.0 [facility] Comment on above: Performed By: #### L 501.080 #### [facility] [address] [place], [address] Creatinine [Mass/Vol] 1.03 mg/dL Normal 0.70-1.20 [facility] Comment on above: Performed By: #### L 501.080 #### [facility] [address] [place], [address] ECRCL 113.55 ml/min Normal 50-250 [facility] Comment on above: Performed By: #### L 501.080 #### [facility] [address] [place], [address] GAP 15 Normal 5-15 [facility] Comment on above: Performed By: #### L 501.080 #### [facility] [address] [place], [address] GFR/1.73 sq M.predicted among non-blacks MDRD (S/P/Bld) [Vol rate/Area] 67 mL/min/{1.73_m2} Normal >60 [facility] Comment on above: Result Comment: mL/m in/1.73m2 CKD-EPI Creatinine Equation (2020) Performed By: #### L 501.080 #### [facility] [address] [place], [address] Globulin (S) [Mass/Vol] 3.2 g/dL Normal 2.2-4.2 [facility] Comment on above: Performed By: #### L 501.080 #### [facility] [address] [place], [address] Glucose [Mass/Vol] 383 mg/dL High 70-99 [facility] Comment on above: Performed By: #### L 501.080 #### [facility] [address] [place], [address] Potassium [Moles/Vol] 3.9 mmol/L Normal 3.3-5.1 [facility] Comment on above: Performed By: #### L 501.080 #### [facility] [address] [place], [address] Sodium [Moles/Vol] 135 mmol/L Normal 133-145 [facility] Comment on above: Performed By: #### L 501.080 #### [facility] [address] [place], [address] T PROT 6.7 g/dL Normal 5.9-8.4 [facility] Comment on above: Performed By: #### L 501.080 #### [facility] [address] [place], [address] Urea nitrogen [Mass/Vol] 31 mg/dL High 4-19 [facility] Comment on above: Performed By: #### L 501.080 #### [facility] [address] [place], [address] Electrocardiogram reportOrde red By: Audi Gamino on 08-17-2025 EKG study [facility] Cardi[facility] Services [address] [address] 12 Lead EKG 08/16/25 1905 MR#: [id number] Acct: [id number] Name: MACARIO WALLACE Rep #:[id number] : 1975 50 From: Audi Gamino MD Attending Dr: Dr. Jersey Pradhan MD Status: ADM IN Ordering Dr: Jozef Kaiser MD Date: 08/16 Location: [facility] Sex: F C Admitted: 08/16/25 Test Reason : DYSRHYTHMIA Blood Pressure : */* mmHG Vent. Rate : 93 BPM Atrial Rate : 93 BPM P-R Int : 140 ms QRS Dur : 86 ms QT Int : 368 ms P-R-T Axes : 14 -2 65 degrees QTcB Int : 457 ms Normal sinus rhythm Normal ECG Confirmed by AUDI GAMINO MD ([id number]), order editor RANDI BROWNLEE ([id number]) on 08/17/2025 9:41:15 AM Referred By: Confirmed By: AUDI GAMINO MD 08/17/25 0941 Date _ Audi Gamino MD CC: Dr. Delmy Solorzano MD; Dr. Jersey Pradhan MD; Dr. Jozef Kaiser MD ~ Signed [facility] Other Phone: Foot 2 Viewson 08-17-2025 Foot 2 Views [facility] Imaging Services [address] [place] [address] Foot 2 Views MR#: [id number] Acct: [id number] Name: MACARIO WALLACE Rep #: [id number] : 1975 F 50 From: Dylan summers MD PCP: Dr. Delmy Solorzano MD Status: ADM IN Study: Foot 2 Views Date of Exam: 08/17/25 Exam# [id number] Ordering Dr: Jersey Pradhan MD PROCEDURE: FOOT 2 VIEWS 08/17/2025 REASON FOR EXAM: DFU TECHNIQUE: Procedure Code: RADFO2 Modality: DX Procedure: FOOT 2 VIEWS Laterality: Left foot ulcer. This is worse overlying the great toe. COMPARISON: None FINDINGS: Bones: Calcaneal spurs. No fracture. Joints: Normal alignment. Soft tissues: Diffuse soft tissue swelling. Other: RAD/Foot 2 Views IMPRESSION: Calcaneal spurs. Diffuse soft tissue swelling more prominent overlying the great toe. Reading Location: [place] [address] CC: Dr. Delmy Solorzano MD; Dr. 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 [place], [place], [address] Hemoglobin A1con 08-17-2025 HbA1c (Bld) [Mass fraction] 12.5 % High <=5.6 [facility] Comment on above: Result Comment: Norm al < 5.7 % Prediabetic 5.7 - 6.4 % Diabetic >or= 6.5 % Please note range changes. Performed By: #### L 501.080 #### [facility] [address] [place], [place], [address] Hemoglobin A1c percentageOrd ered By: Olamide Mas on 08-17-2025 HbA1c (Bld) [Mass fraction] 12.5 % High <5.7 [facility] Comment on above: Normal < 5.7 % Predi abetic 5.7 - 6.4 % Diabetic >or= 6.5 % Please note range changes. L501.4021on 08-17-2025 Trop T High Sen 37 ng/L High <=14 [facility] Comment on above: Performed By: #### L 501.080 #### [facility] [address] [place], [place], [address] L509.7001on 08-17-2025 Procalcitonin 0.13 ng/mL High <=0.10 [facility] Comment on above: Result Comment: Inte rpretation: <0.10-0.25 ng/mL: Antibiotic therapy discouraged. Bacterial infection unlikely. 0.25-0.50 ng/mL: Antibiotic therapy encouraged. Bacterial infection possible. >0.50 ng/mL: Antibiotic therapy strongly encouraged. Suggestive of presence of bacterial infection. PCT should always be interpreted in the clinical context of the patient. Therefore, clinicians should use the PCT results in conjunction with other laboratory findings and clinical signs of the patient. Performed By: #### L 509.7001 #### [facility] [address] [place], [place], [address] LDL calc ser/plasOrdered By: Olamide Mas on 08-17-2025 Cholesterol in LDL [Mass/Vol] 74 mg/dL [facility] Comment on above: Zzfpbskalm=299-366 m g/dL & Higher Fbov=743 mg/dL or greaterFriedwald Equation for LDL-C Laboratory - Chemistry and C hemistry - challengeOrdered By: Olamide Mas on 08-17-2025 AST [Catalytic activity/Vol] 19 U/L <32 [facility] Lipid Profileon 08-17-2025 CHOL:HDL 5.14 Normal [facility] Comment on above: Performed By: #### L 501.080 #### [facility] [address] [facility] [facility] [id number] Cholesterol [Mass/Vol] 146 mg/dL Normal <=200 [facility] Comment on above: Result Comment: Chol esterol level, Desirable <200 mg/dL Borderline high cholesterol 200-239 mg/dL High cholesterol >=240 mg/dL Recommendations of the NCEP Adult Treatment Panel for the following risk-cutoff thresholds for the [place] population. Performed By: #### L 501.080 #### [facility] [address] [facility] [place], [place], [address] Cholesterol in HDL [Mass/Vol] 28 mg/dL Low [facility] Comment on above: Result Comment: Myla onal Cholesterol Education Program (NCEP) guidelines: <40 mg/dL: Low HDL-cholesterol (major risk factor for CHD) >= 60 mg/dL: High HDL-cholesterol (negative risk factor for CHD) HDL-cholesterol is affected by a number of factors, e.g. smoking, exercise, hormones, sex and age. Performed By: #### L 501.080 #### [facility] [address] [place], [place], [address] Cholesterol in LDL [Mass/Vol] 74 mg/dL Normal [facility] Comment on above: Result Comment: Bord eyigrt=463-406 mg/dL Higher Kfak=641 mg/dL or greater Friedwald Equation for LDL-C Performed By: #### L 501.080 #### [facility] [address] [place], [place], [address] Cholesterol in VLDL [Mass/Vol] 44 mg/dL High 5-40 [facility] Comment on above: Performed By: #### L 501.080 #### [facility] [address] [place], [place], [id number] (893) Triglyceride [Mass/Vol] 218 mg/dL High [facility] Comment on above: Result Comment: The drugs N-Acetylcysteine and Metamizole may falsely depress this assay. Normal range: <150 mg/dL Borderline High: 150-199 mg/dL High: 200-499 mg/dL Very High: >500 mg/dL Performed By: #### L 501.080 #### [facility] [address] [place], [place], [address] Screening total cholesterol/ high density lipoprotein (HDL) cholesterol ratioOrdered By: Olamide Mas on 08-17-2025 Cholesterol.total/Choles terol in HDL [Mass ratio] 5.14 {ratio} [facility] Serum globulin measurementOr dered By: Olamide Mas on 08-17-2025 Globulin (S) [Mass/Vol] 3.2 g/dL 2.2-4.2 [facility] Serum or plasma alanine mccollum otransferase (ALT) measurementOrdered By: Olamide Tg on 08-17-2025 ALT [Catalytic activity/Vol] 20 U/L <35 [facility] Serum or plasma albumin yunior urement (mass/volume)Ordered By: Olamide Mas on 08-17-2025 Albumin [Mass/Vol] 3.5 g/dL 3.5-5.0 [facility] Serum or plasma albumin/glob ulin mass ratioOrdered By: Olamide Mas 08-17-2025 Albumin/Globulin [Mass ratio] 1.1 {ratio} 0.9-2.4 [facility] Serum or plasma alkaline janis sphatase measurementOrdered By: Olamide Mas on 08-17-2025 ALP [Catalytic activity/Vol] 76 U/L 35-104 [facility] Serum or plasma cholesterol in HDL measurement (mass/volume)Ordered By: Olamide Mas on 08-17-2025 Cholesterol in HDL [Mass/Vol] 28 mg/dL Low >40 [facility] Comment on above: National Cholesterol Education Program (NCEP) guidelines:<40 mg/dL: Low HDL-cholesterol (major risk factor for CHD)>= 60 mg/dL: High HDL-cholesterol (negative risk factor for CHD)HDL-cholesterol is affected by a number of factors, e.g. smoking, exercise, hormones, sex and age. Serum or plasma cholesterol measurement (mass/volume)Ordered By: Olamide Mas on 08-17-2025 Cholesterol [Mass/Vol] 146 mg/dL <201 [facility] Comment on above: Cholesterol level, D esirable <200 mg/dLBorderline high cholesterol 200-239 mg/dLHigh cholesterol >=240 mg/dLRecommendations of the NCEP Adult Treatment Panel for the following risk-cutoff thresholds for the [place] population. TSH DL <= 0.005 mIU/L QnOrde red By: Olamide Mas on 08-17-2025 TSH Qn 6.510 uIU/mL High 0.300-4.200 [facility] Thyroid Stim Hormone (TSH)on 08-17-2025 TSH 6.510 uIU/mL High 0.300-4.200 [facility] Comment on above: Performed By: #### L 501.080 #### [facility] [address] [place], [address] Total proteinOrdered By: Aut johnathon Mas on 08-17-2025 Protein [Mass/Vol] 6.7 g/dL 5.9-8.4 [facility] Triglycerides measurementOrd ered By: Olamide Mas on 08-17-2025 Triglyceride [Mass/Vol] 218 mg/dL High <199 [facility] Comment on above: The drugs N-Acetylcy steine and Metamizole may falsely depress this assay. Normal range: <150 mg/dLBorderline High: 150-199 mg/dLHigh: 200-499 mg/dLVery High: >500 mg/dL Troponin T HS 2 HRon 025 Trop T High Sen 35 ng/L High <=14 [facility] Comment on above: Performed By: #### L 499.0042 #### [facility] [address] [place], [place], [address] Troponin T HS 4 HRon 025 Trop T High Sen 35 ng/L High <=14 [facility] Comment on above: Performed By: #### L 499.0043 #### [facility] [address] [place], [place], [address] Troponin T.cardiac [Mass/vol ume] in Serum or Plasma by High sensitivity methodOrdered By: Olamide Mas on 08-17-2025 Troponin T.cardiac High sensitivity method [Mass/Vol] 35 ng/L High <14 [facility] Troponin T.cardiac High sensitivity method [Mass/Vol] 35 ng/L High <14 [facility] Vancomycin, Trough Levelon 0 08-17-2025 VANCO, TROUGH 20.3 ug/mL High 5.0-15.0 [facility] Comment on above: Order Comment: 2100 Result Comment: Jefferson mmended goal trough ranges are generally 10-15 mcg/ml for less severe/complicated infections such as cellulitis or UTI and 15-20 mcg/ml for more severe/complicated infections such as bacteremia/sepsis, osteomyelitis, pneumonia or meningitis. Goal trough ranges should take into account indication, patient-specific factors and organism VIKTOR. VANCOMYCIN STANDARED DRUG THERAPY TROUGH LEVEL: 5.0 - 15.0 mg/L VANCOMYCIN HIGH INTENSITY THERAPY TROUGH LEVEL: 15.0 - 20.0 mg/L High Intensity therapy recommended for serious life threatening infections include: - Meningitis -Endocarditis -Pneumonia (Ventilator/Healtcare Associated) -Sepsis PLEASE CONTACT PHARMACY SERVICES (#[id number]) FOR INTERPRETATION OF RESULTS. Performed By: #### L 499.0043 #### [facility] [address] [place], [place], [address] 12 Lead EKGon 08-16-2025 12 Lead EKG [facility] Cardiovascular Services [address] [place] [address] 12 Lead EKG 08/16/25 1905 MR#: [id number] Acct: [id number] Name: MACARIO WALLACE Rep #: [id number] : 1975 50 From: Audi Gamino MD Attending Dr: Dr. Jersey Pradhan MD Status: ADM IN Ordering Dr: Jozef Kaiser MD Date: 08/16/25 Location: [facility] Sex: F C Admitted: 08/16/25 Test Reason : DYSRHYTHMIA Blood Pressure : */* mmHG Vent. Rate : 93 BPM Atrial Rate : 93 BPM P-R Int : 140 ms QRS Dur : 86 ms QT Int : 368 ms P-R-T Axes : 14 -2 65 degrees QTcB Int : 457 ms Normal sinus rhythm Normal ECG Confirmed by HASMUKH LORA, AUDI ([id number]), order editor RANDI BROWNLEE ([id number]) on 08/17/2025 9:41:15 AM Referred By: Confirmed By: AUDI GAMINO MD 08/17/25 0941 Date Audi Gamino MD CC: Dr. Delmy Solorzano MD; Dr. Jersey Pradhan MD; Dr. Jozef Kaiser MD Signed Normal [facility] Absolute lymphocyte countOrd ered By: Jozef Kaiser on 08-16-2025 Lymphocytes Auto (Unsp spec) [#/Vol] 1.92 10*3/uL 0.83-4.51 [facility] Absolute neutrophil countOrd ered By: Jozef Kaiser on 08-16-2025 Neutrophils (Bld) [#/Vol] 6.8 10*3/uL 2.0-7.7 [facility] Activated partial thrombopla stin time (aPTT) in platelet poor plasma by coagulation aOrdered By: Jozef Kaiser on 08-16-2025 aPTT Coag (PPP) [Time] 29.8 s 24.1-36.2 [facility] Anion gap in Serum or Plasma Ordered By: Jozfepedro Maloneo on 08-16-2025 Anion gap [Moles/Vol] 14 mmol/L 5-15 [facility] Automated lymphocyte count a s percentage of total leukocytesOrdered By: Jozef Kaiser on 08-16-2025 Lymphocytes/100 WBC Auto (Unsp spec) 20.4 % 19-41 [facility] BUN/creatinine ratioOrdered By: Jozef Kaiser on 08-16-2025 Urea nitrogen/Creatinine [Mass ratio] 29.7 mg/mg High 10-20 [facility] Basophil percentageOrdered B y: Jozefpedro Maloneo on 08-16-2025 Basophils/100 WBC (Bld) 0.7 % 0-1 [facility] Bilirubin, totalOrdered By: Jozef Kaiser on 08-16-2025 Bilirubin [Mass/Vol] 0.23 mg/dL 0.00-1.[address] [facility] Blood cultureOrdered By: Jozef Kaiser on 08-16-2025 Bacteria identified Cx Nom (Bld) No growth in 5 days. [facility] Bacteria identified Cx Nom (Bld) No growth in 5 days. [facility] CBC W/Diff, Automatedon 08-01 Absolute Lymph 1.92 X10 3/uL Normal 0.83-4.51 [facility] Comment on above: Performed By: #### L 499.0042 #### [facility] [address] [place], [address] Absolute Neut 6.8 X10 3/uL Normal 2.0-7.7 [facility] Comment on above: Performed By: #### L 499.0042 #### [facility] [address] [place], [address] Basophils/100 WBC (Bld) 0.7 % Normal 0-1 [facility] Comment on above: Performed By: #### L 499.0042 #### [facility] [address] [place], [address] Eosinophils/100 WBC (Bld) 2.0 % Normal 0-5 [facility] Comment on above: Performed By: #### L 499.0042 #### [facility] [address] [place], [address] Erythrocyte distribution width (RBC) [Ratio] 13.7 % Normal 11.6-14.6 [facility] Comment on above: Performed By: #### L 499.0042 #### [facility] [address] [place], [address] Hematocrit (Bld) [Volume fraction] 29.6 % Low 37-47 [facility] Comment on above: Performed By: #### L 499.0042 #### [facility] [address] [place], [address] Hemoglobin (Bld) [Mass/Vol] 9.2 g/dL Low 12.0-15.0 [facility] Comment on above: Performed By: #### L 499.0042 #### [facility] [address] [place], [address] IG% 0.600 Normal 0.0-0.9 [facility] Comment on above: Result Comment: IG% - Immature Granulocytes (promyelocytes, myelocytes and metamyelocytes) > 1% indicates that a LEFT SHIFT is Present. Performed By: #### L 499.0042 #### [facility] [address] [place], [address] Lymphocytes/100 WBC (Bld) 20.4 % Normal 19-41 [facility] Comment on above: Performed By: #### L 499.0042 #### [facility] [address] [place], [address] MCH (RBC) [Entitic mass] 28.2 pg Normal 27.0-32.0 [facility] Comment on above: Performed By: #### L 499.0042 #### [facility] [address] [place], [address] MCHC (RBC) [Mass/Vol] 31.1 g/dL Low 32-36 [facility] Comment on above: Performed By: #### L 499.0042 #### [facility] [address] [place], [address] MCV (RBC) [Entitic vol] 90.8 fL Normal 81-99 [facility] Comment on above: Performed By: #### L 499.0042 #### [facility] [address] [place], [address] Monocytes/100 WBC (Bld) 4.1 % Normal 0-10 [facility] Comment on above: Performed By: #### L 499.0042 #### [facility] [address] [place], [address] Neutrophils/100 WBC (Bld) 72.2 % High 47-70 [facility] Comment on above: Performed By: #### L 499.0042 #### [facility] [address] [place], [address] Nucleated RBC (Bld) [#/Vol] 0 10*3/uL Normal 0-5 [facility] Comment on above: Performed By: #### L 499.0042 #### [facility] [address] [place], [address] Platelet mean volume (Bld) [Entitic vol] 10.5 fL Normal 6.2-12.0 [facility] Comment on above: Performed By: #### L 499.0042 #### [facility] [address] [place], [address] Platelets (Bld) [#/Vol] 254 10*3/uL Normal 150-450 [facility] Comment on above: Performed By: #### L 499.0042 #### [facility] [address] [place], [address] RBC (Bld) [#/Vol] 3.26 10*6/uL Low 4.2-5.4 [facility] Comment on above: Performed By: #### L 499.0042 #### [facility] [address] [place], [address] RDW SD 45.8 fl High 35.1-43.9 [facility] Comment on above: Performed By: #### L 499.0042 #### [facility] [address] [place], [address] WBC (Bld) [#/Vol] 9.4 10*3/uL Normal 4.4-11.0 [facility] Comment on above: Performed By: #### L 499.0042 #### [facility] [address] [place], [address] Carbon dioxide, total [Moles /volume] in Central venous bloodOrdered By: Jozef Kaiser on 08-16-2025 CO2 [Moles/Vol] 30.0 mmol/L 21.0-32.0 [facility] Chest PA and Lateralon 08-16 Chest PA and Lateral [facility] Imaging Services [address] [place] [address] Chest PA and Lateral MR#: [id number] Acct: [id number] Name: MACARIO WALLACE Rep #: [id number] : 1975 F 50 From: Paulino Morrissey MD PCP: Dr. Delmy Solorzano MD Status: [facility] ER Study: Chest PA and Lateral Date of Exam: 08/16/25 Exam# [id number] Ordering Dr: Jozef Kaiser MD PROCEDURE: CHEST PA AND LATERAL 08/16/2025 REASON FOR EXAM: REED, ORTHOPNEA, WHEEZING TECHNIQUE: Procedure Code: RADCXR Modality: DX Procedure: CHEST PA AND LATERAL COMPARISON: 11/09/2024 FINDINGS: Cardiomegaly with vascular congestion. No airspace consolidation or pleural effusion. No pneumothorax. Mild multilevel degenerative changes of the spine. Unremarkable soft tissues. RAD/Chest PA and Lateral IMPRESSION: Cardiomegaly with vascular congestion. No airspace consolidation or pleural effusions. Reading Location: [facility] CC: Dr. Delmy Solorzano MD; Dr. 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 Comprehensive Metabolic Prof ilon 08-16-2025 Albumin [Mass/Vol] 3.5 g/dL Normal 3.5-5.0 [facility] Comment on above: Performed By: #### L 499.0042 #### [facility] [address] [place], [address] Albumin/Globulin [Mass ratio] 1.1 {ratio} Normal 0.9-2.4 [facility] Comment on above: Performed By: #### L 499.0042 #### [facility] [address] [place], [address] ALK PHOS 81 U/L Normal 35-104 [facility] Comment on above: Performed By: #### L 499.0042 #### [facility] [address] [place], [address] ALT [Catalytic activity/Vol] 23 U/L Normal <=34 [facility] Comment on above: Performed By: #### L 499.0042 #### [facility] [address] [place], [address] AST [Catalytic activity/Vol] 24 U/L Normal <=31 [facility] Comment on above: Performed By: #### L 499.0042 #### [facility] [address] [place], [address] Bilirubin [Mass/Vol] 0.23 mg/dL Normal 0.00-1.[address] [facility] Comment on above: Performed By: #### L 499.0042 #### [facility] [address] [place], [address] BUN/CRE 29.7 RATIO High 10-20 [facility] Comment on above: Performed By: #### L 499.0042 #### [facility] [address] [place], [address] Calcium [Mass/Vol] 8.2 mg/dL Normal 7.6-11.0 [facility] Comment on above: Performed By: #### L 499.0042 #### [facility] [address] [place], [address] Chloride [Moles/Vol] 90 mmol/L Low 98-[address] [facility] Comment on above: Performed By: #### L 499.0042 #### [facility] [address] [place], [address] CO2 [Moles/Vol] 30.0 mmol/L Normal 21.0-32.0 [facility] Comment on above: Performed By: #### L 499.0042 #### [facility] [address] [place], [address] Creatinine [Mass/Vol] 1.07 mg/dL Normal 0.70-1.20 [facility] Comment on above: Performed By: #### L 499.0042 #### [facility] [address] [place], [address] ECRCL 110.03 ml/min Normal 50-250 [facility] Comment on above: Performed By: #### L 499.0042 #### [facility] [address] [place], [address] GAP 14 Normal 5-15 [facility] Comment on above: Performed By: #### L 499.0042 #### [facility] [address] [place], [address] GFR/1.73 sq M.predicted among non-blacks MDRD (S/P/Bld) [Vol rate/Area] 64 mL/min/{1.73_m2} Normal >60 [facility] Comment on above: Result Comment: mL/m in/1.73m2 CKD-EPI Creatinine Equation (2020) Performed By: #### L 499.0042 #### [facility] [address] [place], [address] Globulin (S) [Mass/Vol] 3.2 g/dL Normal 2.2-4.2 [facility] Comment on above: Performed By: #### L 499.0042 #### [facility] [address] [place], [address] Glucose [Mass/Vol] 525 mg/dL Invalid Interpretation Code 70-99 [facility] Comment on above: Result Comment: Crit ical Result(s) Called at: 08-16-25 20:26 TO CRISTINA RAWLS by:??NADIA PICKETT Results read back by same. Performed By: #### L 499.0042 #### [facility] [address] [place], [address] Potassium [Moles/Vol] 3.8 mmol/L Normal 3.3-5.1 [facility] Comment on above: Performed By: #### L 499.0042 #### [facility] [address] [place], [address] Sodium [Moles/Vol] 134 mmol/L Normal 133-145 [facility] Comment on above: Performed By: #### L 499.0042 #### [facility] [address] [place], [address] T PROT 6.7 g/dL Normal 5.9-8.4 [facility] Comment on above: Performed By: #### L 499.0042 #### [facility] [address] [place], [address] Urea nitrogen [Mass/Vol] 32 mg/dL High 4-19 [facility] Comment on above: Performed By: #### L 499.0042 #### [facility] [address] [place], [address] Emergency Department Summary on 08-16-2025 Emergency Department Summary [facility] Medical Records Department [address] [place] [address] Emergency Department Summary 08/16/25 MR#: [id number] Acct: [id number] Name: MACARIO WALLACE Rep #: [id number] : 1975 50 From: Jozef Kaiser MD PCP: Dr. Delmy Solorzano MD Status:REG ER Location: ED HPI History of Present Illness Chief Complaint: Edema Detail of Chief Complaint: Edema, dyspnea on exertion, chills and subjective fever and drainage RLE Informant: patient Onset/Context/Timin g Onset: Days Context: Gradual Onset Timing: Continuous Quality: Swelling of both lower extremities right left greater than left, REED Location: Cardiovascular and Derm Current Severity: Mild Maximum Severity: Moderate Worsened by: Activity and supine position Relieved by: Remaining still and sleeping with 3 pillows Associated Symptoms Associated Symptoms: Subjective fever with chills and drainage from RLE Narrative Narrative: Patient is a 50-year-old woman. She presents because of multiple symptoms. She is complaining of dyspnea on exertion which she has a past medical history of. She has history of respiratory failure with hypoxemia. She does have obstructive sleep apnea. She is not compliant at all times with her CPAP device. Patient complains of subjective fever with chills. She denies headache, visual, ocular auditory symptoms. She denies chest pressure, tightness or heaviness. She does endorse 3 pillow orthopnea and dyspnea on exertion. She also endorses increased swelling of her lower extremities. There is drainage from the right. She has noted blisters on the left. She denies symptoms of claudication. She has been a type II diabetic for 20+ years. Has been on insulin for 5 years. Prior similar symptoms: Yes Recent Illness/Hospitaliza tion: No PFSH PFSH Medical History MRSA cellulitis of left foot Cellulitis of leg Arthritis Non-smoker CHF (congestive heart failure) History of diabetes mellitus Anemia Hypoxia Morbid obesity Venous stasis dermatitis of both lower extremities BMI 60.0-69.9, adult Noncompliance with CPAP treatment Acute on chronic respiratory failure with hypoxia and hypercapnia Perianal abscess Type 2 diabetes mellitus with hyperglycemia Contusion of knee, right Chronic diastolic (congestive) heart failure Depression Diabetes GERD (gastroesophageal reflux disease) BiPAP (biphasic positive airway pressure) dependence Sleep apnea On home oxygen therapy Smoker COPD (chronic obstructive pulmonary disease) Hypertension Congestive heart failure KERRY (acute kidney injury) Chronic respiratory failure with hypoxia Opiate overdose History of left heart catheterization (LHC) ( 01/05/19) Type 2 diabetes mellitus Old myocardial infarction Essential hypertension Restrictive lung disease secondary to obesity Dyspnea on exertion Pulmonary embolism Hidradenitis Non-healing open wound of left groin Open wound of vulva with complication Necrotizing soft tissue infection Abscess of vulva Soft tissue abscess of inguinal region Respiratory failure with hypoxia Abscess Hyperglycemia due to type 2 diabetes mellitus NSTEMI (non-ST elevated myocardial infarction) Tobacco abuse Hyperlipidemia Morbid obesity History of MRSA infection Anxiety 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 Home Medications ???Medication ???Instructions ???Recorded ???Last Taken ???Type multivit-iron 18 mg-folic acid 400 1 ea PO DAILY supplement 7 07/14/23 History mcg-calcium 500 mg-minerals tablet omeprazole 40 mg capsule,delayed 40 mg PO DAILY GERD 12/15/1807/14 History release loratadine 10 mg tablet 10 mg PO DAILY PRN Allergies 03/0107/14/23 History apixaban 5 mg tablet 5 mg PO BID blood thinner 08/20/20 07/14/23 History diltiazem HCl 120 mg 120 mg PO DAILY heart rate 0 07/14/23 History capsule,extended release 24 hr lisinopril 10 mg tablet 10 mg PO DAILY blood pressure 03/0207/14/23 History metformin 500 mg tablet,extended 1,000 mg PO DAILY diabetes 1 07/14/23 History release 24 hr metoprolol succinate 25 mg 25 mg PO DAILY blood pressure 03/0207/14/23 History tablet,extended release 24 hr atorvastatin 80 mg tablet 80 mg PO QHS cholesterol 02/07/22 07/14/23 History furosemide 40 mg tablet 80 mg PO DAILY diuretic 09/22/22 0 07/14/23 History albuterol sulfate 2.5 mg/3 mL 2.5 mg inhalation Q4H PRN SOB 08/2307/10/23 History (0.083 %) solution for nebulization fenofibrate nanocrystallized 145 145 mg PO DAILY CHOLESTEROL 07/14/23 History mg tablet insulin glargine U-300 conc 300 104 unit subcut BID diabetes 07/1407/13/23 History unit/mL (3 mL) subcutaneous pen (Toujeo Max U-300 SoloStar) semaglutide 1 mg/dose (4 mg/3 mL) 1 mg (more content not included)... Normal [facility] Eosinophil percentageOrdered By: Jozef Kaiser on 08-16-2025 Eosinophils/100 WBC (Bld) 2.0 % 0-5 [facility] Erythrocyte distribution wid th ratioOrdered By: Jozef Kaiser on 08-16-2025 Erythrocyte distribution width (RBC) [Ratio] 13.7 % 11.6-14.6 [facility] Erythrocyte distribution wid th standard deviationOrdered By: Jozef Kaiser on 08-16-2025 Erythrocyte distribution width (RBC) [Ratio] 45.8 fl High 35.1-43.9 [facility] Glomerular filtration rate ( GFR) estimation/1.73 sq m using serum, plasma, or whole bOrdered By: Jozef Kaiser on 08-16-2025 GFR/1.73 sq M.predicted among non-blacks MDRD (S/P/Bld) [Vol rate/Area] 64 mL/min/{1.73_m2} >60 [facility] Comment on above: mL/min/1.73m2 CKD-EP I Creatinine Equation (2020) Gram stainOrdered By: Jozef morrow on 08-16-2025 Microscopic observation Gram stain Nom (Unsp spec) [facility] H AND P Exam - Hospitaliston 08-16-2025 H&P Exam - Hospitalist [facility] Medical Records Department [address] [place] [address] H P Exam - Hospitalist 08/16/252105 MR#: [id number] Acct: [id number] Name: MACARIO WALLACE Rep #: [id number] : 1975 50 From: Olamide Mas MD PCP: Dr. Delmy Solorzano MD Status:ADM IN Location: [facility] [id number] HPI - General General Date of Admission: 08/16/25 Date of Service: 08/16/25 Chief Complaint: Worsening LE edema, orthopnea, dyspnea, RLE stasis blisters with drainage. 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, uncertain, HFpEF, COPD w/ Chronic Hypoxic and Hypercapnic Respiratory Failure (4L NC), LOGAN on BIPAP, HTN, HLD, GERD, Anxiety and Depression, Former Tobacco use, Diabetes mellitus type II with chronic neuropathy, Hx VTE who presents to the [facility] ED on 08/16/2025 with history of increasing edema to the lower extremity, dyspnea worse with exertion with drainage to the right lower extremity and redness with subjective fever and chills noting that the edema to the right has been greater with notable orthopnea concurrently with some admission that she has not been compliant intermittently with her PAP therapy prompting eventual ED evaluation. Workup in the ED included T98.1, heart rate 99, BP 156/71, respiratory rate 20, 96% on 5 L nasal cannula with patient most recently noted to be on 4 L nasal cannula 10/2024 with most recent repeat vitals T98.9 Oral, heart rate 91, BP 134/69, respiratory rate 14, 99% on 5 L nasal cannula, CBC with WC 9.4, hemoglobin 9.2, MCV 90.8, platelet 254 without marked shift, unremarkable coags, CMP with chloride 90, BUN/creatinine 32/1.07, GFR 64, glucose 525, lactic acid 1.9, anion gap 14, hepatic profile unremarkable, initial troponin 37, NT proBNP II 163, chest x-ray with cardiomegaly with vascular congestion, EKG with sinus rhythm with no acute evidence of ischemia, blood culture x 2 pending per ED. In the ED patient ministered Unasyn 3 g IV x 1, insulin U-500 15 units subcu x 1, vancomycin 2000 mg IV x 1, oxycodone 10 mg p.o. x 1. From review of records 11/12/2024 last weight of patient 387 pounds now upon current presentation up to 408 pounds. [facility] Medical History (Updated 08/16/25 @ 21:[address] Olamide Mas MD) Cellulitis of leg MRSA cellulitis of left foot Arthritis Non-smoker CHF (congestive heart failure) History of diabetes mellitus Anemia Hypoxia Morbid obesity Venous stasis dermatitis of both lower extremities BMI 60.0-69.9, adult Noncompliance with CPAP treatment Acute on chronic respiratory failure with hypoxia and hypercapnia Perianal abscess Type 2 diabetes mellitus with hyperglycemia Contusion of knee, right Chronic diastolic (congestive) heart failure Depression Diabetes GERD (gastroesophageal reflux disease) BiPAP (biphasic positive airway pressure) dependence Sleep apnea On home oxygen therapy Smoker COPD (chronic obstructive pulmonary disease) Hypertension Congestive heart failure KERRY (acute kidney injury) Chronic respiratory failure with hypoxia Opiate overdose History of left heart catheterization (LHC) ( 01/05/19) Type 2 diabetes mellitus Old myocardial infarction Essential hypertension Restrictive lung disease secondary to obesity Dyspnea on exertion Pulmonary embolism Hidradenitis Non-healing open wound of left groin Open wound of vulva with complication Necrotizing soft tissue infection Abscess of vulva Soft tissue abscess of inguinal region Respiratory failure with hypoxia Abscess Hyperglycemia due to type 2 diabetes mellitus NSTEMI (non-ST elevated myocardial infarction) Tobacco abuse Hyperlipidemia Morbid obesity History of MRSA infection Anxiety 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 Home Medications ???Medication ???Instructions ???Recorded ???Last Taken ???Type multivit-iron 18 mg-folic acid 400 1 ea PO DAILY supplement 7 07/14/23 History mcg-calcium 500 mg-minerals tablet omeprazole 40 mg capsule,delayed 40 mg PO DAILY GERD 12/15/1807/14 History release loratadine 10 mg tablet 10 mg PO DAILY PRN Allergies 03/0107/14/23 History apixaban 5 mg tablet 5 mg PO BID blood thinner 08/20/20 07/14/23 History diltiazem HCl 120 mg 120 mg PO DAILY heart rate 0 07/14/23 History capsule,extended release 24 hr lisinopril 10 mg tablet 10 mg PO DAILY blood pressure 03/0207/14/23 History metformin 500 mg tablet,extended 1,000 mg PO DAILY diabetes 1 07/14/23 History release 24 hr metoprolol succinate 25 mg 25 mg PO DAILY blood pressure 03/0207/14/23 History tablet,extended release 24 hr atorvastatin 80 mg tablet 80 mg PO QHS cholesterol 02/07/22 07/14/23 History furosemide 40 mg tablet 80 mg PO DAILY diuretic 09/22/22 0 (more content not included)... Normal [facility] Hematocrit Auto (Bld) [Volum e fraction]Ordered By: Jozef Kaiser on 08-16-2025 Hematocrit (Bld) [Volume fraction] 29.6 % Low 37-47 [facility] Hemoglobin measurementOrdere d By: Jozefpedro Kaiser on 08-16-2025 Hemoglobin (Bld) [Mass/Vol] 9.2 g/dL Low 12.0-15.0 [facility] Immature granulocytes/100 WB C Auto (Bld)Ordered By: Jozefpedro Kaiser on 08-16-2025 Immature granulocytes/100 WBC (Bld) 0.600 % 0.0-0.9 [facility] Comment on above: IG% - Immature Granu locytes (promyelocytes, myelocytes and metamyelocytes) > 1% indicates that a LEFT SHIFT is Present. International normalized rat io (INR) calculationOrdered By: Jozef Kaiser on 08-16-2025 INR Coag (Bld) [Relative time] 1.1 {INR} [facility] L501.4021on 08-16-2025 Trop T High Sen 37 ng/L High <=14 [facility] Comment on above: Performed By: #### L 499.0042 #### [facility] [address] [place], [place], [id number] Laboratory - Chemistry and C hemistry - challengeOrdered By: Jozefpedro Kaiser on 08-16-2025 AST [Catalytic activity/Vol] 24 U/L <32 [facility] Lactic Acidon 08-16-2025 Lactate [Moles/Vol] 1.9 mmol/L Normal 0.0-2.0 [facility] Comment on above: Order Comment: Y Performed By: #### L 499.0042 #### [facility] [address] [place], [place], [address] Lactic acid measurementOrder ed By: Jozefpedro Maloneo on 08-16-2025 Lactate [Moles/Vol] 1.9 mmol/L 0.0-2.0 [facility] M8200.1075on 08-16-2025 M8200.1075 Normal Reference Range = Negative MRSA/SAUR WOUND PCR GeneXpert Instrument, PCR method MRSA/SAUR WOUND PCR Copy of report sent to Infection Control Printer MS#[id number] 08/16/25 2317 HAKEEM. RESULTS CALLED TO YO MONTEIRO 08/16/25 2317 Yvrose Martinez. REPORT READ BACK BY SAME. MRSA PCR MRSA POSITIVE A STAPH. AUREUS PCR STAPH AUREUS POSITIVEA STAPH. AUREUS PCR STAPH AUREUS POSITIVEA mecA Testing not performed Normal [facility] Comment on above: Performed By: #### L 501.080 #### [facility] [address] [place], [address] MCV (mean corpuscular volume ) determinationOrdered By: Jozefpedro Kaiser on 08-16-2025 MCV (RBC) [Entitic vol] 90.8 fL 81-99 [facility] Magnesiumon 08-16-2025 Magnesium [Mass/Vol] 1.4 mg/dL Low 1.5-2.[address] [facility] Comment on above: Order Comment: Comme nts: may add to ED labs Performed By: #### L 501.080 #### [facility] [address] [facility] [place], [address] Mean corpuscular hemoglobin (MCH) determinationOrdered By: Jozef Kaiser on 08-16-2025 MCH (RBC) [Entitic mass] 28.2 pg 27.0-32.0 [facility] Mean corpuscular hemoglobin concentration (MCHC) determinationOrdered By: Jozef Kaiser on 08-16-2025 MCHC (RBC) [Mass/Vol] 31.1 g/dL Low 32-36 [facility] Mean platelet volume determi nationOrdered By: Jozef Kaiser on 08-16-2025 Platelet mean volume (Bld) [Entitic vol] 10.5 fL 6.2-12.0 [facility] Methicillin resistant Staphy lococcus aureus detection by polymerase chain reactionOrdered By: Olamide Mas on 08-16-2025 Bacterial nucleic acid assay Meth. resistant Staph. aureus Abnormal [facility] Monocyte percentageOrdered B y: Jozef Kaiser on 08-16-2025 Monocytes/100 WBC (Bld) 4.1 % 0-10 [facility] Natriuretic peptide.B prohor britany N-Terminal [Mass/volume] in Serum or PlasmaOrdered By: Jozef Kaiser on 08-16-2025 Natriuretic peptide.B prohormone N-Terminal [Mass/Vol] 163 pg/mL <450 [facility] Comment on above: Heart Failure Unlike ly: < 300 pg/mLHeart Failure Likely< 50 Years: > 450 pg/mL50-75 Years: > 900 pg/mL>75 Years: > 1800 pg/mL Neutrophil percentageOrdered By: Jozef Kaiser on 08-16-2025 Neutrophils/100 WBC (Bld) 72.2 % High 47-70 [facility] Nucleated red blood cell per centageOrdered By: Jozefpedro Kaiser on 08-16-2025 Nucleated RBC/100 WBC (Bld) [Ratio] 0 % 0-5 [facility] Partial Thromboplast Timeon 08-16-2025 aPTT Coag (Bld) [Time] 29.8 s Normal 24.1-36.2 [facility] Comment on above: Performed By: #### L 499.0042 #### [facility] [place], [address] Platelet countOrdered By: Savanna Kaiser on 08-16-2025 Platelets (Bld) [#/Vol] 254 10*3/uL 150-450 [facility] Potassium measurement (mass/ volume)Ordered By: Jozef Kaiser on 08-16-2025 Potassium (Unsp spec) [Mass/Vol] 3.8 mmol/L 3.3-5.1 [facility] Pro- Brain NATRIURETIC PEPTI Robb 08-16-2025 Natriuretic peptide B (Bld) [Mass/Vol] 163 pg/mL Normal <=450 [facility] Comment on above: Result Comment: Hear t Failure Unlikely: < 300 pg/mL Heart Failure Likely < 50 Years: > 450 pg/mL 50-75 Years: > 900 pg/mL >75 Years: > 1800 pg/mL Performed By: #### L 499.0042 #### [facility] [address] [place], [place], [id number] Procalcitonin [Mass/volume] in Serum or Plasma by ImmunoassayOrdered By: Olamide Mas on 08-16-2025 Procalcitonin IA [Mass/Vol] 0.13 ng/mL High <0.11 [facility] Comment on above: Interpretation:<0.10 -0.25 ng/mL: Antibiotic therapy discouraged. Bacterial infection unlikely.0.25-0.50 ng/mL: Antibiotic therapy encouraged. Bacterial infection possible.>0.50 ng/mL: Antibiotic therapy strongly encouraged. Suggestive of presence of bacterial infection.PCT should always be interpreted in the clinical context of the patient. Therefore, clinicians should use the PCT results in conjunction with other laboratory findings and clinical signs of the patient. Prothrombin Time w/INRon INR Coag (PPP) [Relative time] 1.1 {INR} Normal [facility] Comment on above: Performed By: #### L 499.0042 #### [facility] [address] [place], [place], [address] PT Coag (PPP) [Time] 14.3 s Normal 11.7-14.[address] [facility] Comment on above: Performed By: #### L 499.0042 #### [facility] [address] [place], [place], [address] Prothrombin timeOrdered By: Jozef Kaiser on 08-16-2025 PT Coag (PPP) [Time] 14.3 s 11.7-14.[address] [facility] RBC Auto (Bld) [#/Vol]Ordere d By: Jozef Kaiser on 08-16-2025 RBC (Bld) [#/Vol] 3.26 10*6/uL Low 4.2-5.4 [facility] Routine wound cultureOrdered By: Jozef Kaiser on 08-16-2025 Microbial culture, routine Meth. resistant Staph. aureus Abnormal [facility] Microbial culture, routine Streptococcus thoraltensis Abnormal [facility] Microbial culture, routine Streptococcus mitis/ oralis Abnormal [facility] Serum creatinine measurement (mass/volume)Ordered By: Jozef Kaiser on 08-16-2025 Creatinine [Mass/Vol] 1.07 mg/dL 0.70-1.20 [facility] Serum globulin measurementOr dered By: Jozef Kaiser on 08-16-2025 Globulin (S) [Mass/Vol] 3.2 g/dL 2.2-4.2 [facility] Serum glucose measurement (m ass/volume)Ordered By: Jozef Kaiser on 08-16-2025 Glucose [Mass/Vol] 525 mg/dL High 70-99 [facility] Comment on above: Critical Result(s) C alled at: 08-16-25 20:26 TO CRISTINA RAWLS by: NADIA PICKETT Results read back by same. Serum or plasma alanine mccollum otransferase (ALT) measurementOrdered By: Jozefpedro Kaiser on 08-16-2025 ALT [Catalytic activity/Vol] 23 U/L <35 [facility] Serum or plasma albumin yunior urement (mass/volume)Ordered By: Jozef Kaiser on 08-16-2025 Albumin [Mass/Vol] 3.5 g/dL 3.5-5.0 [facility] Serum or plasma albumin/glob ulin mass ratioOrdered By: Jozef Kaiser on 08-16-2025 Albumin/Globulin [Mass ratio] 1.1 {ratio} 0.9-2.4 [facility] Serum or plasma alkaline janis sphatase measurementOrdered By: Jozefpedro Kaiser on 08-16-2025 ALP [Catalytic activity/Vol] 81 U/L 35-104 [facility] Serum or plasma calcium yunior urement (mass/volume)Ordered By: Jozef Kaiser on 08-16-2025 Calcium [Mass/Vol] 8.2 mg/dL 7.6-11.0 [facility] Serum or plasma urea nitroge n measurement (mass/volume)Ordered By: Jozef Kaiser on 08-16-2025 Urea nitrogen [Mass/Vol] 32 mg/dL High 4-19 [facility] Sodium levelOrdered By: Jozef Kaiser on 08-16-2025 Sodium [Moles/Vol] 134 mmol/L 133-145 [facility] Total proteinOrdered By: Jozef Kaiser on 08-16-2025 Protein [Mass/Vol] 6.7 g/dL 5.9-8.4 [facility] Troponin T HS 2 HRon 025 Trop T High Sen Normal <=14 [facility] Comment on above: Result Comment: Artis staton via OM: Ordered Performed By: #### L 501.080 #### [facility] [address] [place], [place], [address] Troponin T HS 4 HRon 025 Trop T High Sen Normal <=14 [facility] Comment on above: Result Comment: Artis staton via OM: Ordered Performed By: #### L 501.080 #### [facility] [address] [place], [place], [address] Troponin T.cardiac [Mass/vol ume] in Serum or Plasma by High sensitivity methodOrdered By: Olamide Mas on 08-16-2025 Troponin T.cardiac High sensitivity method [Mass/Vol] 37 ng/L High <14 [facility] Troponin T.cardiac [Mass/vol ume] in Serum or Plasma by High sensitivity methodOrdered By: Jozef Kaiser on 08-16-2025 Troponin T.cardiac High sensitivity method [Mass/Vol] 37 ng/L High <14 [facility] White blood cell (WBC) count Ordered By: Jozef Kaiser on 08-16-2025 WBC (Bld) [#/Vol] 9.4 10*3/uL 4.4-11.0 [facility] ALBUMIN/CREATININE RATIO, UR INEon 06-09-2025 Albumin DL <= 20 mg/L (U) [Mass/Vol] mg/dL Normal [facility] Comment on above: Order Comment: Speci men Type: URINE SPECIMEN Ordering Facility: External Submitter Address: , , Performed By: #### U ACR #### [facility] CLIA [id number] [address] [place] [address] [place] Albumin/Creatinine (U) [Mass ratio] <18 Normal <30 [facility] Comment on above: Order Comment: Speci men Type: URINE SPECIMEN Ordering Facility: External Submitter Address: , , Result Comment: Adul t Male and Female Nephrotic Criteria: <30 mg/g is considered normal to mildly increased 30-300 mg/g is considered moderately increased >300 mg/g is considered severely increased KDIGO. (2013). KDIGO 2012 Clinical Practice Guideline for the Evaluation and Management of Chronic Kidney Disease. Official Journal of the International Society of Nephrology, 3(1), 1-150. Performed By: #### U ACR #### [facility] CLIA [id number] [address] [place] [address] [place] Creatinine (U) [Mass/Vol] 66.4 mg/dL Normal 20.0-300.0 [facility] Comment on above: Order Comment: Speci men Type: URINE SPECIMEN Ordering Facility: External Submitter Address: , , Performed By: #### U ACR #### [facility] CLIA [id number] [address] [place] [address] [place] CBC W Auto Differential pane l (Bld)on 06-09-2025 Basophils (Bld) [#/Vol] 0.06 10*3/uL Normal <0.11 [facility] Comment on above: Order Comment: Speci men Type: BLOOD SPECIMEN Ordering Facility: External Submitter Address: , , Performed By: #### 5 7021-8 #### [facility] CLIA [id number] [address] [place] [address] [place] Basophils/100 WBC (Bld) 0.7 % Normal [facility] Comment on above: Order Comment: Speci men Type: BLOOD SPECIMEN Ordering Facility: External Submitter Address: , , Performed By: #### 5 7021-8 #### [facility] CLIA [id number] [address] [address] [place] Differential cell count method Nom (Bld) Auto Normal [facility] Comment on above: Order Comment: Speci men Type: BLOOD SPECIMEN Ordering Facility: External Submitter Address: , , Performed By: #### 5 7021-8 #### [facility] CLIA [id number] [facility], [facility]95 [place] Eosinophils (Bld) [#/Vol] 0.23 10*3/uL Normal <0.46 [facility] Comment on above: Order Comment: Speci men Type: BLOOD SPECIMEN Ordering Facility: External Submitter Address: , , Performed By: #### 5 7021-8 #### [facility] CLIA [id number] [address] [place] [address], [facility] [place] Eosinophils/100 WBC (Bld) 2.9 % Normal [facility] Comment on above: Order Comment: Speci men Type: BLOOD SPECIMEN Ordering Facility: External Submitter Address: , , Performed By: #### 5 7021-8 #### [facility] CLIA [id number] [address] [place], [place] [address] [place] Erythrocyte distribution width (RBC) [Ratio] 13.4 % Normal 11.5-15.0 [facility] Comment on above: Order Comment: Speci men Type: BLOOD SPECIMEN Ordering Facility: External Submitter Address: , , Performed By: #### 5 7021-8 #### [facility] CLIA [id number] [address] [place] [address], [place] [address] [place] Hematocrit (Bld) [Volume fraction] 34.8 % Low 36.0-46.0 [facility] Comment on above: Order Comment: Speci men Type: BLOOD SPECIMEN Ordering Facility: External Submitter Address: , , Performed By: #### 5 7021-8 #### [facility] CLIA [id number] [address] [place] [address] [place] Hemoglobin (Bld) [Mass/Vol] 10.6 g/dL Low 11.5-15.5 [facility] Comment on above: Order Comment: Speci men Type: BLOOD SPECIMEN Ordering Facility: External Submitter Address: , , Performed By: #### 5 7021-8 #### [facility] CLIA [id number] [address] [place] Immature granulocytes (Bld) [#/Vol] 0.05 10*3/uL Normal <0.10 [facility] Comment on above: Order Comment: Speci men Type: BLOOD SPECIMEN Ordering Facility: External Submitter Address: , , Performed By: #### 5 7021-8 #### [facility] CLIA [id number] [address] [place] [address] Immature granulocytes/100 WBC (Bld) 0.6 % Normal [facility] Comment on above: Order Comment: Speci men Type: BLOOD SPECIMEN Ordering Facility: External Submitter Address: , , Performed By: #### 5 7021-8 #### [facility] CLIA [id number] [address] [place] [address] [place] Lymphocytes (Bld) [#/Vol] 1.76 10*3/uL Normal 1.00-4.00 [facility] Comment on above: Order Comment: Speci men Type: BLOOD SPECIMEN Ordering Facility: External Submitter Address: , , Performed By: #### 5 7021-8 #### [facility] CLIA [id number] [address] [place] [id number] [place] Lymphocytes/100 WBC (Bld) 21.8 % Normal [facility] Comment on above: Order Comment: Speci men Type: BLOOD SPECIMEN Ordering Facility: External Submitter Address: , , Performed By: #### 5 7021-8 #### [facility] CLIA [id number] [address] [address] [place] MCH (RBC) [Entitic mass] 28.2 pg Normal 26.0-34.0 [facility] Comment on above: Order Comment: Speci men Type: BLOOD SPECIMEN Ordering Facility: External Submitter Address: , , Performed By: #### 5 7021-8 #### [facility] CLIA [id number] [facility] [address] [address] [place] MCHC (RBC) [Mass/Vol] 30.5 g/dL Normal 30.5-36.0 [facility] Comment on above: Order Comment: Speci men Type: BLOOD SPECIMEN Ordering Facility: External Submitter Address: , , Performed By: #### 5 7021-8 #### [facility] CLIA [id number] [address] [place] [address] [place] MCV (RBC) [Entitic vol] 92.6 fL Normal 80.0-100.0 [facility] Comment on above: Order Comment: Speci men Type: BLOOD SPECIMEN Ordering Facility: External Submitter Address: , , Performed By: #### 5 7021-8 #### [facility] CLIA [id number] [address] [place] [address] Monocytes (Bld) [#/Vol] 0.33 10*3/uL Normal <0.87 [facility] Comment on above: Order Comment: Speci men Type: BLOOD SPECIMEN Ordering Facility: External Submitter Address: , , Performed By: #### 5 7021-8 #### [facility] CLIA [id number] [address] [place], [place] [address] [place] Monocytes/100 WBC (Bld) 4.1 % Normal [facility] Comment on above: Order Comment: Speci men Type: BLOOD SPECIMEN Ordering Facility: External Submitter Address: , , Performed By: #### 5 7021-8 #### [facility] CLIA [id number] [address] [place], [place] [address] [place] Neutrophils (Bld) [#/Vol] 5.63 10*3/uL Normal 1.45-7.50 [facility] Comment on above: Order Comment: Speci men Type: BLOOD SPECIMEN Ordering Facility: External Submitter Address: , , Performed By: #### 5 7021-8 #### [facility] CLIA [id number] [address] [address] [place] Neutrophils/100 WBC (Bld) 69.9 % Normal [facility] Comment on above: Order Comment: Speci men Type: BLOOD SPECIMEN Ordering Facility: External Submitter Address: , , Performed By: #### 5 7021-8 #### [facility] CLIA [id number] [address] [address] [place] Nucleated RBC (Bld) [#/Vol] 10*3/uL Normal <0.01 [facility] Comment on above: Order Comment: Speci men Type: BLOOD SPECIMEN Ordering Facility: External Submitter Address: , , Performed By: #### 5 7021-8 #### [facility] CLIA [id number] [address] [address] [place] Nucleated RBC/100 WBC (Bld) [Ratio] 0.0 /100 WBC Normal [facility] Comment on above: Order Comment: Speci men Type: BLOOD SPECIMEN Ordering Facility: External Submitter Address: , , Performed By: #### 5 7021-8 #### [facility] CLIA [id number] [address] [address] [place] Platelet mean volume (Bld) [Entitic vol] 11.4 fL Normal 9.0-12.7 [facility] Comment on above: Order Comment: Migdaliai men Type: BLOOD SPECIMEN Ordering Facility: External Submitter Address: , , Performed By: #### 5 7021-8 #### [facility] CLIA [id number] [address] [address] [place] Platelets (Bld) [#/Vol] 266 10*3/uL Normal 150-400 [facility] Comment on above: Order Comment: Speci men Type: BLOOD SPECIMEN Ordering Facility: External Submitter Address: , , Performed By: #### 5 7021-8 #### [facility] CLIA [id number] [address] [place] [address] [place] RBC (Bld) [#/Vol] 3.76 10*6/uL Low 3.90-5.20 [facility] Comment on above: Order Comment: Speci men Type: BLOOD SPECIMEN Ordering Facility: External Submitter Address: , , Performed By: #### 5 7021-8 #### [facility] CLIA [id number] [address] [place] [address] [place] WBC (Bld) [#/Vol] 8.06 10*3/uL Normal 3.70-11.00 [facility] Comment on above: Order Comment: Speci men Type: BLOOD SPECIMEN Ordering Facility: External Submitter Address: , , Performed By: #### 5 7021-8 #### [facility] CLIA [id number] [address] [place], [place] [address] [place] Comprehensive metabolic 2000 panelon 06-09-2025 Albumin [Mass/Vol] 3.7 g/dL Low 3.9-4.9 [facility] Comment on above: Order Comment: Speci men Type: BLOOD SPECIMEN Ordering Facility: External Submitter Address: , , Performed By: #### 3 024-7, 53983-4, TSHRF #### [facility] CLIA [id number] [address] [place], [place] [address] [place] ALP [Catalytic activity/Vol] 72 U/L Normal 34-123 [facility] Comment on above: Order Comment: Speci men Type: BLOOD SPECIMEN Ordering Facility: External Submitter Address: , , Performed By: #### 3 024-7, 44510-5, TSHRF #### [facility] CLIA [id number] [address] [place] [id number] [place] ALT [Catalytic activity/Vol] 23 U/L Normal 7-38 [facility] Comment on above: Order Comment: Speci men Type: BLOOD SPECIMEN Ordering Facility: External Submitter Address: , , Performed By: #### 3 024-7, , TSHRF #### [facility] CLIA [id number] [facility] [place] [address] [place] Anion gap [Moles/Vol] 10 mmol/L Normal 8-15 [facility] Comment on above: Order Comment: Speci men Type: BLOOD SPECIMEN Ordering Facility: External Submitter Address: , , Performed By: #### 3 024-7, , TSHRF #### [facility] CLIA [id number] [address] [place] [address] [place] AST [Catalytic activity/Vol] 28 U/L Normal 13-35 [facility] Comment on above: Order Comment: Speci men Type: BLOOD SPECIMEN Ordering Facility: External Submitter Address: , , Performed By: #### 3 024-7, , TSHRF #### [facility] CLIA [id number] [address] [place] [address] [place] Bilirubin [Mass/Vol] 0.2 mg/dL Normal 0.2-1.3 [facility] Comment on above: Order Comment: Speci men Type: BLOOD SPECIMEN Ordering Facility: External Submitter Address: , , Performed By: #### 3 024-7, , TSHRF #### [facility] CLIA [id number] [address] [place] [address] [place] Calcium [Mass/Vol] 9.1 mg/dL Normal 8.5-10.2 [facility] Comment on above: Order Comment: Speci men Type: BLOOD SPECIMEN Ordering Facility: External Submitter Address: , , Performed By: #### 3 024-, 28655-1, TSHRF #### [facility] CLIA [id number] [address] [place] [id number] [place] Chloride [Moles/Vol] 93 mmol/L Low 98-107 [facility] Comment on above: Order Comment: Speci dahiana Type: BLOOD SPECIMEN Ordering Facility: External Submitter Address: , , Performed By: #### 3 024-7, 03112-0, TSHRF #### [facility] CLIA [id number] [address] [place] [id number] [place] CO2 [Moles/Vol] 32 mmol/L High 22-30 [facility] Comment on above: Order Comment: Speci dahiana Type: BLOOD SPECIMEN Ordering Facility: External Submitter Address: , , Performed By: #### 3 024-7, 05474-3, TSHRF #### [facility] CLIA [id number] [address] [place] [address] [place] Creatinine [Mass/Vol] 1.04 mg/dL High 0.58-0.96 [facility] Comment on above: Order Comment: Migdaliai dahiana Type: BLOOD SPECIMEN Ordering Facility: External Submitter Address: , , Performed By: #### 3 024-7, 44762-3, TSHRF #### [facility] CLIA [id number] [address] [place] [address] [place] Creatinine and Glomerular filtration rate.predicted panel (S/P/Bld) 67 mL/min/1.73m??? Normal >=60 [facility] Comment on above: Order Comment: Roberto talbot Type: BLOOD SPECIMEN Ordering Facility: External Submitter Address: , , Result Comment: Gayle mated Glomerular Filtration Rate (eGFR) is calculated using the 2020 CKD-EPI creatinine equation. This equation utilizes serum creatinine, sex, and age as parameters. The creatinine assay has traceable calibration to isotope dilution-mass spectrometry. Refer to KDIGO guidelines for clinical interpretation. In patients with unstable renal function, e.g. those with acute kidney injury, the eGFR may not accurately reflect actual GFR. Performed By: #### 3 024-7, 15524-3, TSHRF #### [facility] CLIA [id number] [address] [place] [address] [place] Glucose [Mass/Vol] 323 mg/dL High 74-99 [facility] Comment on above: Order Comment: Roberto talbot Type: BLOOD SPECIMEN Ordering Facility: External Submitter Address: , , Result Comment: The [place] Diabetes Association (ADA) provides guidance for cutoff values for fasting glucose and random glucose. The ADA defines fasting as no caloric intake for at least 8 hours. Fasting plasma glucose results between 100 to 125 mg/dL indicate increased risk for diabetes (prediabetes). Fasting plasma glucose results greater than or equal to 126 mg/dL meet the criteria for diagnosis of diabetes. In the absence of unequivocal hyperglycemia, results should be confirmed by repeat testing. In a patient with classic symptoms of hyperglycemia or hyperglycemic crisis, random plasma glucose results greater than or equal to 200 mg/dL meet the criteria for diagnosis of diabetes. Reference: Standards of Medical Care in Diabetes 2016, [place] [employer] Association. Diabetes Care. 2016.39(Suppl 1). Performed By: #### 3 024-7, 32958-6, TSHRF #### [facility] CLIA [id number] [address] [place] [address] [place] Potassium [Moles/Vol] 4.7 mmol/L Normal 3.7-5.1 [facility] Comment on above: Order Comment: Roberto talbot Type: BLOOD SPECIMEN Ordering Facility: External Submitter Address: , , Performed By: #### 3 024-7, , TSHRF #### [facility] CLIA [id number] [address] [address] [place] Protein [Mass/Vol] 7.1 g/dL Normal 6.3-8.0 [facility] Comment on above: Order Comment: Roberto talbot Type: BLOOD SPECIMEN Ordering Facility: External Submitter Address: , , Performed By: #### 3 024-7, , TSHRF #### [facility] CLIA [id number] [address] [place] [id number] [place] Sodium [Moles/Vol] 135 mmol/L Low 136-144 [facility] Comment on above: Order Comment: Roberto talbot Type: BLOOD SPECIMEN Ordering Facility: External Submitter Address: , , Performed By: #### 3 024-7, 04095-7, TSHRF #### [facility] CLIA [id number] [address] [place] [address] [place] Urea nitrogen [Mass/Vol] 24 mg/dL High 7-21 [facility] Comment on above: Order Comment: Roberto talbot Type: BLOOD SPECIMEN Ordering Facility: External Submitter Address: , , Performed By: #### 3 024-7, 87277-7, TSHRF #### [facility] CLIA [id number] [address] [place] [address] [place] HbA1c (Bld)on 06-09-2025 Average glucose Estimated from glycated hemoglobin (Bld) [Mass/Vol] 266 mg/dL Normal [facility] Comment on above: Order Comment: Roberto talbot Type: BLOOD SPECIMEN Ordering Facility: External Submitter Address: , , Result Comment: eAG: (Estimated average glucose) is a calculated value from HgbA1c and is hr representative of the average blood glucose level in the last 2-3 month period. Performed By: #### 5 5454-3 #### [facility] CLIA [id number] [address] [place] [address] [place] HbA1c (Bld) [Mass fraction] 10.9 % High 4.3-5.6 [facility] Comment on above: Order Comment: Roberto talbot Type: BLOOD SPECIMEN Ordering Facility: External Submitter Address: , , Result Comment: [place] Diabetes Association guidelines indicate that patients with HgbA1c in the range 5.7-6.4% are at increased risk for development of diabetes, and intervention by lifestyle modification may be beneficial. HgbA1c greater or equal to 6.5% is considered diagnostic of diabetes. Performed By: #### 5 5454-3 #### [facility] CLIA [id number] [address] [place] [address] [place] T4 Free SerPl-mCncon 025 Free T4 [Mass/Vol] 1.1 ng/dL Normal 0.9-1.7 [facility] Comment on above: Order Comment: Speci men Type: BLOOD SPECIMEN Ordering Facility: External Submitter Address: , , Performed By: #### 3 024-7, 28000-6, TSHRF #### [facility] CLIA [id number] [address] [place] [address] [place] TSH W/REFLEX FT4on 5 TSH Qn 4.340 m[IU]/L High 0.270-4.200 [facility] Comment on above: Order Comment: Speci men Type: BLOOD SPECIMEN Ordering Facility: External Submitter Address: , , Result Comment: If t he patient is , TSH reference range varies by gestational period: First Trimester (weeks 9-12): 0.180-2.990 mIU/L Second Trimester: 0.110-3.980 mIU/L Third Trimester: 0.480-4.710 mIU/L Mark Ritchie et al. A Practical Approach for the Verifications and Determination of Site- and Trimester-Specific Reference Intervals for Thyroid Function tests in . Thyroid, 2019:29:3:412-420. Noel E, et al. 2017 Guidelines of the [place] Thyroid Association for the Diagnosis and Management of Thyroid Disease during and the . Thyroid, 2017:27:3:315-389. Performed By: #### 3 024-7, 96873-8, TSHRF #### [facility] [facility] CLIA [id number] [address] [place], [place] [id number] [place] Culture, Blood (WB)on 2023 CUB Blood cultures x2, from two different sites No growth in 5 days. Normal [facility] Comment on above: Performed By: #### L 509.7001 #### [facility] [address] [place], [address] Basic Metabolic Profile (BMP )on 11-12-2024 BUN/CRE 33.0 RATIO High 10-20 [facility] Comment on above: Performed By: #### L 501.080 #### [facility] [address] [place], [address] CA,Total 8.6 mg/dL Normal 8.5-10.1 [facility] Comment on above: Performed By: #### L 501.080 #### [facility] [address] [place], [address] Chloride [Moles/Vol] 97 mmol/L Low 98-[address] [facility] Comment on above: Performed By: #### L 501.080 #### [facility] [address] [place], [address] CO2 [Moles/Vol] 36.0 mmol/L High 21.0-32.0 [facility] Comment on above: Performed By: #### L 501.080 #### [facility] [address] [place], [address] Creatinine [Mass/Vol] 0.91 mg/dL Normal 0.55-1.02 [facility] Comment on above: Result Comment: The validity of the calculated GFR GFRAA in patients over 70 years has not been determined. Clinical correlation is essential. Performed By: #### L 501.080 #### [facility] [address] [place], [address] ECRCL 126.01 ml/min Normal [facility] Comment on above: Performed By: #### L 501.080 #### [facility] [address] [place], [address] EST GFR - AA 85 mL/min Normal >60 [facility] Comment on above: Result Comment: Afri can [place] GFR Calc Performed By: #### L 501.080 #### [facility] [address] [place], [address] GAP 3 Low 5-15 [facility] Comment on above: Performed By: #### L 501.080 #### [facility] [address] [place], [address] GFR/1.73 sq M.predicted among non-blacks MDRD (S/P/Bld) [Vol rate/Area] 70 mL/min/{1.73_m2} Normal >60 [facility] Comment on above: Result Comment: Non- GFR Calc Performed By: #### L 501.080 #### [facility] [address] [place], [address] Glucose [Mass/Vol] 191 mg/dL High 74-106 [facility] Comment on above: Result Comment: Fast ing Glucose result greater than or equal to 126 mg/dL suggests DIABETES MELLITUS per A.D.A. criteria. Performed By: #### L 501.080 #### [facility] [address] [place], [address] Potassium [Moles/Vol] 4.2 mmol/L Normal 3.5-5.1 [facility] Comment on above: Performed By: #### L 501.080 #### [facility] [address] [place], [address] Sodium [Moles/Vol] 136 mmol/L Normal 136-145 [facility] Comment on above: Performed By: #### L 501.080 #### [facility] [address] [place], [address] Urea nitrogen [Mass/Vol] 30 mg/dL High 7-18 [facility] Comment on above: Performed By: #### L 501.080 #### [facility] [address] [place], [address] Bedside Glucoseon 11-12-2024 FINGERSTICK GLU 233 mg/dL High 74-106 [facility] Comment on above: Result Comment: CESAR GEMENT OF PATIENT CARE PER NURSING PROTOCOL Performed By: #### L 501.080 #### [facility] [address] [place], [address] FINGERSTICK GLU 328 mg/dL High 74-106 [facility] Comment on above: Result Comment: CESAR GEMENT OF PATIENT CARE PER NURSING PROTOCOL Performed By: #### L 499.0042 #### [facility] [address] [place], [address] FINGERSTICK GLU 206 mg/dL High 74-106 [facility] Comment on above: Result Comment: CESAR GEMENT OF PATIENT CARE PER NURSING PROTOCOL Performed By: #### L 501.080 #### [facility] [address] [place], [address] CBC W/Diff, Automatedon 12-12 03-2023 Absolute Lymph 1.75 X10 3/uL Normal 0.83-4.51 [facility] Comment on above: Performed By: #### L 501.080 #### [facility] [address] [place], [address] Absolute Neut 6.5 X10 3/uL Normal 2.0-7.7 [facility] Comment on above: Performed By: #### L 501.080 #### [facility] [address] [place], [address] Basophils/100 WBC (Bld) 0.6 % Normal 0-1 [facility] Comment on above: Performed By: #### L 501.080 #### [facility] [address] [place], [address] Eosinophils/100 WBC (Bld) 4.3 % Normal 0-5 [facility] Comment on above: Performed By: #### L 501.080 #### [facility] [address] [place], [address] Erythrocyte distribution width (RBC) [Ratio] 13.3 % Normal 11.6-14.6 [facility] Comment on above: Performed By: #### L 501.080 #### [facility] [address] [place], [address] Hematocrit (Bld) [Volume fraction] 28.8 % Low 37-47 [facility] Comment on above: Performed By: #### L 501.080 #### [facility] [address] [place], [address] Hemoglobin (Bld) [Mass/Vol] 8.7 g/dL Low 12.0-15.0 [facility] Comment on above: Performed By: #### L 501.080 #### [facility] [address] [place], [address] IG% 0.900 Normal 0.0-0.9 [facility] Comment on above: Result Comment: IG% - Immature Granulocytes (promyelocytes, myelocytes and metamyelocytes) > 1% indicates that a LEFT SHIFT is Present. Performed By: #### L 501.080 #### [facility] [address] [place], [address] Lymphocytes/100 WBC (Bld) 18.9 % Low 19-41 [facility] Comment on above: Performed By: #### L 501.080 #### [facility] [address] [place], [address] MCH (RBC) [Entitic mass] 27.8 pg Normal 27.0-32.0 [facility] Comment on above: Performed By: #### L 501.080 #### [facility] [address] [place], [address] MCHC (RBC) [Mass/Vol] 30.2 g/dL Low 32-36 [facility] Comment on above: Performed By: #### L 501.080 #### [facility] [address] [place], [address] MCV (RBC) [Entitic vol] 92.0 fL Normal 81-99 [facility] Comment on above: Performed By: #### L 501.080 #### [facility] [address] [place], [address] Monocytes/100 WBC (Bld) 4.9 % Normal 0-10 [facility] Comment on above: Performed By: #### L 501.080 #### [facility] [address] [place], [address] Neutrophils/100 WBC (Bld) 70.4 % High 47-70 [facility] Comment on above: Performed By: #### L 501.080 #### [facility] [address] [place], [address] Nucleated RBC (Bld) [#/Vol] 0.2 10*3/uL Normal 0-5 [facility] Comment on above: Performed By: #### L 501.080 #### [facility] [address] [place], [address] Platelet mean volume (Bld) [Entitic vol] 10.3 fL Normal 6.2-12.0 [facility] Comment on above: Performed By: #### L 501.080 #### [facility] [address] [place], [address] Platelets (Bld) [#/Vol] 261 10*3/uL Normal 150-450 [facility] Comment on above: Performed By: #### L 501.080 #### [facility] [address] [place], [address] RBC (Bld) [#/Vol] 3.13 10*6/uL Low 4.2-5.4 [facility] Comment on above: Performed By: #### L 501.080 #### [facility] [address] [place], [address] RDW SD 45.2 fl High 35.1-43.9 [facility] Comment on above: Performed By: #### L 501.080 #### [facility] [address] [place], [address] WBC (Bld) [#/Vol] 9.2 10*3/uL Normal 4.4-11.0 [facility] Comment on above: Performed By: #### L 501.080 #### [facility] [address] [place], [address] Discharge Instructionon 10-31 Discharge Instruction [facility] Medical Records Department [address] [place] [address] Instructions for Home/Discharge Instructions 11/12/24 1620 MR#: [id number] Acct: [id number] Name: MACARIO WALLACE Rep #: [id number] : 1975 49 From: Ling Neville MD PCP: Dr. Delmy Solorzano MD Status:ADM IN Discharge Instructions Diet Discharge Diet: Low fat / Low cholesterol and 1800 Calorie Control Diet DC O2, CPAP, BIPAP needs PSN CPAP BiPAP: BiPAP CPAP Settings per PSN Mode AVAPS 11/12/24 05:02 Bipap Delivery Device Face Mask 11/12/24 05:02 BiPAP Inspiratory Pressure 16 11/12/24 02:23 BiPAP Expiratory Pressure 8 11/12/24 05:02 BiPAP Rate 12 11/12/24 05:02 Fraction of Inspired Oxygen ( 40 11/12/24 05:02 FIO2) Additional Home O2 Discharge instructions: No Dressing / Incision Weight Bearing Status: Weight bearing as tolerated Dressing / Incision Call your doctor if you observe: Fever of 101 or Higher, Shortness of breath, Dizziness, Swelling in the ankles and Chest pain Follow Up Care Test Results: Test results from this visit will be discussed in further detail at your follow-up appointment, if applicable. Discharge Plan Admission Admit Date/Time: 11/09/24 23:05 Primary Reason for Your Visit: acute bronchitis Attending Provider: Ling Neville Primary Care Provider: Delmy Solorzano Consulting Providers: Olamide Mas; Cody Gonzalez; Belem Aponte Instructions Patient Instructions: Acute Bronchitis Ch Discharge Orders/Prescription s Prescriptions: New doxycycline monohydrate 100 mg Capsule 100 mg PO BID 5 Days Qty: 10 0RF cephalexin 500 mg capsule 500 mg PO TID Qty: 14 0RF Continued loratadine 10 mg tablet 10 mg PO DAILY PRN (Reason: Allergies) lisinopril 10 mg tablet 10 mg PO DAILY Patient Comments: TAKE 1 TABLET BY MOUTH EVERY DAY metformin 500 mg tablet extended release 24 hr 1,000 mg PO DAILY metoprolol succinate 25 mg tablet extended release 24 hr 25 mg PO DAILY Patient Comments: TAKE 1 TABLET BY MOUTH EVERY DAY atorvastatin 80 mg tablet 80 mg PO QHS [id number] lcium-mins 1 EACH tablet 1 ea PO DAILY Patient Comments: vitamin omeprazole 40 MG capsule,delayed release(DR/EC) 40 mg PO DAILY diltiazem HCl 120 MG capsule 120 mg PO DAILY apixaban 5 MG tablet 5 mg PO BID furosemide 40 mg tablet 80 mg PO DAILY insulin lispro [Humalog KwikPen Insulin] 100 unit/mL Insulin Pen 50 unit subcut TIDAC Qty: 0 0RF albuterol sulfate 2.5 mg /3 mL (0.083 %) solution for nebulization 2.5 mg inhalation Q4H PRN (Reason: SOB) fenofibrate nanocrystallized 145 mg tablet 145 mg PO DAILY oxycodone-acetamino phen [Percocet] 5-325 mg tablet 1 tab PO Q6H PRN (Reason: pain) 3 Days Qty: 12 0RF insulin glargine U-300 conc [Toujeo Max U-300 SoloStar] 300 unit/mL (3 mL) insulin pen 104 unit SUBCUT BID Patient Comments: PT STATES SHE TAKES THIS BUT DOES NOT KNOW HOW OFTEN OR HOW MANY UNITS Ozempic 1 mg/dose (4 mg/3 mL) pen injector 1 mg SUBCUT .1XW metolazone 2.5 mg tablet 2.5 mg PO .every / Qty: 8 1RF ferrous sulfate [FeroSul] 325 mg (65 mg iron) tablet 325 mg PO DAILY ergocalciferol (vitamin D2) [Vitamin D2] 1,250 mcg (50,000 unit) capsule 1,250 mcg PO QWEEK lorazepam 1 mg tablet 1 mg PO TID duloxetine 60 mg capsule,delayed release(DR/EC) 60 mg PO DAILY potassium chloride 20 mEq tablet,ER particles/crystals See Rx Instructions .ROUTE .COMPLEX Qty: 60 11RF Dose Instruction: TAKE 1 TABLET BY MOUTH TWICE A DAY Rx Instructions: TAKE 1 TABLET BY MOUTH TWICE A DAY Referrals / Follow Up: Delmy Solorzano MD [Primary Care Provider] - Within 1 Week Vinicio Shah DPM [Med Staff - Active Staff] - Within 2 Weeks Disposition Disposition (needs filled in before D/C Order can be placed): Home Health Service 11/12/24 1621 Ling Neville MD CC: Dr. Olamide Mas MD; Dr. Delmy Solorzano MD; Dr. Belem Aponte DO; Dr. Cody Gonzalez MD Signed Normal [facility] Echo Complete W/ Contraston 11-12-2024 Echo Complete W/ Contrast [facility] [address] [place] [address] Echo Complete W/ Contrast 11/12/24 1449 MR#: [id number] Acct: [id number] Name: MACARIO WALLACE Rep #: [id number] : 1975 49 From: Stefano Lebron MD Attending Dr: Dr. Ling Neville MD Status: DI S IN Ordering Dr: Ling Neville MD Date: 11/12/24 Location: MS3 Sex: F C Admitted: 11/09/24 Reason For Study: CHF Procedure This was a 2D Doppler, Color Flow transthoracic echocardiogram. Contrast injection was performed. The study was technically difficult. Exam performed portable in patient room. Left Ventricle Normal LV size. The estimated ejection fraction is 55 %. No evidence for diastolic dysfunction. No regional wall motion abnormalities noted. Right Ventricle Normal RV size. Normal systolic function. Atria The left and right atria are normal. No doppler evidence for ASD. Mitral Valve There is no mitral valve stenosis. No mitral valve insufficiency. Tricuspid Valve There is no tricuspid stenosis. Unable to estimate RV systolic pressure due to inadequate jet, pulmonary artery pressure probably normal. Aortic Valve Trisinus/trileaflet aortic valve. There is no aortic stenosis. No aortic valve insufficiency. Pulmonic Valve There is no pulmonic valvular stenosis. Trivial pulmonic valve insufficiency. Great Vessels Normal aortic root. Pericardium/Pleural No pericardial effusion. Medication Diluted definity 4ml given slow IV push to enhance endocardial definition. MMode/2D Measurements Calculations LVIDd: 5.5 cm IVSd: 1.1 cm Ao root diam: 3.7 cm LVIDs: 3.6 cm LVPWd: 1.1 cm FS: 33.4 % LAV(MOD-bp): 41.7 ml LVAd ap4: 32.0 cm2 SV(MOD-sp4): 74.8 ml LAV(MOD-bp) Indexed: 15.9 ml/m2 LVLd ap4: 7.2 cm SI(MOD-sp4): 28.6 ml/m2 LAV(MOD-sp2): 39.7 ml EDV(MOD-sp4): 118.0 ml LAV(MOD-sp4): 36.0 ml EDV(sp4-el): 121.8 ml LVAs ap4: 18.1 cm2 LVLs ap4: 6.1 cm ESV(MOD-sp4): 43.2 ml ESV(sp4-el): 45.6 ml EF(MOD-sp4): 63.4 % EF(sp4-el): 62.6 % SV(sp4-el): 76.2 ml LA A4 area: 17.2 cm2 LA dimension(2D): 4.3 cm TAPSE: 3.1 cm Time Measurements MV dec time: 0.21 sec Doppler Measurements Calculations MV E max dasha: 110.5 cm/sec Lat Peak E' Dasha: 11.6 cm/sec Med Peak E' Dasha: 10.4 cm/sec MV A max dasha: 77.2 cm/sec E/E' lat: 9.5 E/E' med: 10.6 MV E/A: 1.4 MV V2 max: 122.4 cm/sec Ao V2 max: 186.2 cm/sec MV max P.0 mmHg MV dec slope: 518.7 cm/sec2 Ao max P.9 mmHg MV V2 mean: 65.1 cm/sec Ao V2 mean: 120.4 cm/sec MV mean P.1 mmHg Ao mean P.9 mmHg MV V2 VTI: 37.3 cm Ao V2 VTI: 45.1 cm AV (velocity ratio): 0.76 LV V1 max: 133.2 cm/sec PA V2 max: 111.4 cm/sec LV V1 max P.1 mmHg PA V2 mean: 66.9 cm/sec LV V1 mean P.1 mmHg LV V1 mean: 95.6 cm/sec LV V1 VTI: 34.2 cm ECHO/Echo Complete W/ Contrast Interpretation Summary The estimated ejection fraction is 55 %. No evidence for diastolic dysfunction. __ Ordering Physician: Ling Neville Referring Physician: Delmy Solorzano Performed By: Maki Rivera RCS 11/13/24 1402 Date Stefano Lebron MD CC: Dr. Delmy Solorzano MD; Dr. 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 Comment on above: Performed By: #### L 501.080 #### [facility] [address] [place], [address] Phosphoruson 11-12-2024 Phosphate [Mass/Vol] 2.3 mg/dL Low 2.5-4.[address] [facility] Comment on above: Performed By: #### L 501.080 #### [facility] [address] [place], [address] Vancomycin, Trough Levelon 1 01-13-2024 VANCO, TROUGH 20.7 ug/mL High 5.0-15.0 [facility] Comment on above: Order Comment: 1200 Result Comment: VANC OMYCIN STANDARED DRUG THERAPY TROUGH LEVEL: 5.0 - 15.0 mg/L VANCOMYCIN HIGH INTENSITY THERAPY TROUGH LEVEL: 15.0 - 20.0 mg/L High Intensity therapy recommended for serious life threatening infections include: - Meningitis -Endocarditis -Pneumonia (Ventilator/Healtcare Associated) -Sepsis PLEASE CONTACT PHARMACY SERVICES (#[phone]) FOR INTERPRETATION OF RESULTS. Performed By: #### L 501.080 #### [facility] [address] [facility] [address] Wound Cultureon 11-12-2024 List Antibiotics Last 48 Hours? vancomycin, zosyn Copy of report sent to Infection Control Printer [id number] 11/12/24 0917 [facility] Meth. resistant Staph. aureus Amount Growth 2+ mecA Testing not performed Meth. resistant Staph. aureus: REACTION cefOXitin Susc Islt POS Doxycycline Islt VIKTOR <=0.5 Clindamycin Islt VIKTOR 0.25 S Clindamycin.induced Susc Islt NEG Erythromycin Islt VIKTOR >=8 R Gentamicin Islt VIKTOR <=0.5 S Linezolid Islt VIKTOR 2 S Moxifloxacin Islt VIKTOR 2 S Oxacillin Susc Islt >=4 R Tetracycline Islt VIKTOR <=1 S TMP SMX Islt VIKTOR <=10 S Vancomycin Islt VIKTOR 1 S Normal [facility] Comment on above: Performed By: #### L 501.080 #### [facility] [address] [facility] [address] Bedside Glucoseon 11-11-2024 FINGERSTICK GLU 127 mg/dL High 74-106 [facility] Comment on above: Result Comment: CESAR GEMENT OF PATIENT CARE PER NURSING PROTOCOL Performed By: #### L 501.080 #### [facility] [address] [facility] [address] FINGERSTICK GLU 156 mg/dL High 74-106 [facility] Comment on above: Result Comment: CESAR GEMENT OF PATIENT CARE PER NURSING PROTOCOL Performed By: #### L 501.080 #### [facility] [address] [place], [address] FINGERSTICK GLU 187 mg/dL High 74-106 [facility] Comment on above: Result Comment: CESAR PLUNKETTENT OF PATIENT CARE PER NURSING PROTOCOL Performed By: #### L 499.0042 #### [facility] [address] [place], [address] FINGERSTICK GLU 200 mg/dL High 74-106 [facility] Comment on above: Result Comment: CESAR PLUNKETTENT OF PATIENT CARE PER NURSING PROTOCOL Performed By: #### L 9000.0800 #### [facility] [address] [place], [address] CBC W/Diff, Automatedon 12-12 02-2023 Absolute Lymph 1.71 X10 3/uL Normal 0.83-4.51 [facility] Comment on above: Performed By: #### L 9000.0800 #### [facility] [address] [place], [address] Absolute Neut 12.3 X10 3/uL High 2.0-7.7 [facility] Comment on above: Performed By: #### L 9000.0800 #### [facility] [address] [place], [address] Basophils/100 WBC (Bld) 0.5 % Normal 0-1 [facility] Comment on above: Performed By: #### L 9000.0800 #### [facility] [address] [place], [address] Eosinophils/100 WBC (Bld) 2.5 % Normal 0-5 [facility] Comment on above: Performed By: #### L 9000.0800 #### [facility] [address] [place], [address] Erythrocyte distribution width (RBC) [Ratio] 13.4 % Normal 11.6-14.6 [facility] Comment on above: Performed By: #### L 9000.0800 #### [facility] [address] [place], [address] Hematocrit (Bld) [Volume fraction] 30.3 % Low 37-47 [facility] Comment on above: Performed By: #### L 9000.0800 #### [facility] [address] [place], [address] Hemoglobin (Bld) [Mass/Vol] 9.0 g/dL Low 12.0-15.0 [facility] Comment on above: Performed By: #### L 9000.0800 #### [facility] [address] [place], [address] IG% 0.500 Normal 0.0-0.9 [facility] Comment on above: Result Comment: IG% - Immature Granulocytes (promyelocytes, myelocytes and metamyelocytes) > 1% indicates that a LEFT SHIFT is Present. Performed By: #### L 9000.0800 #### [facility] [address] [place], [address] Lymphocytes/100 WBC (Bld) 11.2 % Low 19-41 [facility] Comment on above: Performed By: #### L 9000.0800 #### [facility] [address] [place], [address] MCH (RBC) [Entitic mass] 27.8 pg Normal 27.0-32.0 [facility] Comment on above: Performed By: #### L 9000.0800 #### [facility] [address] [place], [address] MCHC (RBC) [Mass/Vol] 29.7 g/dL Low 32-36 [facility] Comment on above: Performed By: #### L 9000.0800 #### [facility] [address] [place], [address] MCV (RBC) [Entitic vol] 93.5 fL Normal 81-[address] [facility] Comment on above: Performed By: #### L 9000.0800 #### [facility] [address] [place], [address] Monocytes/100 WBC (Bld) 4.9 % Normal 0-10 [facility] Comment on above: Performed By: #### L 9000.0800 #### [facility] [address] [place], [address] Neutrophils/100 WBC (Bld) 80.4 % High 47-70 [facility] Comment on above: Performed By: #### L 9000.0800 #### [facility] [address] [place], [address] Nucleated RBC (Bld) [#/Vol] 0 10*3/uL Normal 0-5 [facility] Comment on above: Performed By: #### L 9000.0800 #### [facility] [address] [place], [address] Platelet mean volume (Bld) [Entitic vol] 9.9 fL Normal 6.2-12.0 [facility] Comment on above: Performed By: #### L 9000.0800 #### [facility] [address] [place], [address] Platelets (Bld) [#/Vol] 256 10*3/uL Normal 150-450 [facility] Comment on above: Performed By: #### L 9000.0800 #### [facility] [address] [place], [address] RBC (Bld) [#/Vol] 3.24 10*6/uL Low 4.2-5.4 [facility] Comment on above: Performed By: #### L 9000.0800 #### [facility] [address] [place], [address] RDW SD 46.0 fl High 35.1-43.9 [facility] Comment on above: Performed By: #### L 9000.0800 #### [facility] [address] [place], [address] WBC (Bld) [#/Vol] 15.3 10*3/uL High 4.4-11.0 [facility] Comment on above: Performed By: #### L 9000.0800 #### [facility] [address] [place], [address] Comprehensive Metabolic Prof ilon 11-11-2024 Albumin [Mass/Vol] 2.7 g/dL Low 3.2-5.0 [facility] Comment on above: Performed By: #### L 9000.0800 #### [facility] [address] [place], [address] Albumin/Globulin [Mass ratio] 0.6 {ratio} Low 0.9-2.4 [facility] Comment on above: Performed By: #### L 9000.0800 #### [facility] [address] [place], [address] ALK P 62 U/L Normal 45-117 [facility] Comment on above: Performed By: #### L 9000.0800 #### [facility] [address] [place], [address] ALT [Catalytic activity/Vol] 17 U/L Normal 13-56 [facility] Comment on above: Performed By: #### L 9000.0800 #### [facility] [address] [place], [address] AST [Catalytic activity/Vol] 18 U/L Normal 15-37 [facility] Comment on above: Performed By: #### L 9000.0800 #### [facility] [address] [place], [address] Bilirubin [Mass/Vol] 0.30 mg/dL Normal 0.20-1.[address] [facility] Comment on above: Result Comment: For patients on eltrombopag therapy, use of Dimension [place] TBIL is not recommended. Performed By: #### L 9000.0800 #### [facility] [address] [place], [address] BUN/CRE 28.4 RATIO High 10-20 [facility] Comment on above: Performed By: #### L 9000.0800 #### [facility] [address] [place], [address] CA,Total 8.1 mg/dL Low 8.5-10.1 [facility] Comment on above: Performed By: #### L 9000.0800 #### [facility] [address] [place], [address] Chloride [Moles/Vol] 95 mmol/L Low 98-[address] [facility] Comment on above: Performed By: #### L 9000.0800 #### [facility] [address] [place], [address] CO2 [Moles/Vol] 35.0 mmol/L High 21.0-32.0 [facility] Comment on above: Performed By: #### L 9000.0800 #### [facility] [address] [place], [address] Creatinine [Mass/Vol] 1.41 mg/dL High 0.55-1.02 [facility] Comment on above: Result Comment: The validity of the calculated GFR GFRAA in patients over 70 years has not been determined. Clinical correlation is essential. Performed By: #### L 9000.0800 #### [facility] [address] [place], [address] ECRCL 80.95 ml/min Normal [facility] Comment on above: Performed By: #### L 9000.0800 #### [facility] [address] [place], [address] EST GFR - AA 51 mL/min Low >60 [facility] Comment on above: Result Comment: Afri can [place] GFR Calc Performed By: #### L 9000.0800 #### [facility] [address] [place], [address] GAP 3 Low 5-15 [facility] Comment on above: Performed By: #### L 9000.0800 #### [facility] [address] [place], [address] GFR/1.73 sq M.predicted among non-blacks MDRD (S/P/Bld) [Vol rate/Area] 42 mL/min/{1.73_m2} Low >60 [facility] Comment on above: Result Comment: Non- GFR Calc Performed By: #### L 9000.0800 #### [facility] [address] [place], [address] Globulin (S) [Mass/Vol] 4.4 g/dL High 2.2-4.2 [facility] Comment on above: Performed By: #### L 9000.0800 #### [facility] [address] [place], [address] Glucose [Mass/Vol] 197 mg/dL High 74-106 [facility] Comment on above: Result Comment: Fast ing Glucose result greater than or equal to 126 mg/dL suggests DIABETES MELLITUS per A.D.A. criteria. Performed By: #### L 9000.0800 #### [facility] [address] [place], [address] Potassium [Moles/Vol] 4.3 mmol/L Normal 3.5-5.1 [facility] Comment on above: Performed By: #### L 9000.0800 #### [facility] [address] [place], [address] Sodium [Moles/Vol] 134 mmol/L Low 136-145 [facility] Comment on above: Performed By: #### L 9000.0800 #### [facility] [address] [place], [address] T PROT 7.1 g/dL Normal 6.4-8.2 [facility] Comment on above: Performed By: #### L 9000.0800 #### [facility] [address] [place], [address] Urea nitrogen [Mass/Vol] 40 mg/dL High 7-18 [facility] Comment on above: Performed By: #### L 9000.0800 #### [facility] [address] [place], [address] Consultation - Infectious Dx on 11-11-2024 Consultation - Infectious Dx [facility] Medical Records Department [address] [place] [address] Consultation - Infectious Dx 11/11/24 [facility] MR#: [id number] Acct: [id number] Name: MACARIO WALLACE Rep #: [id number] : 1975 49 From: Coyd Gonzalez MD PCP: Dr. Delmy Solorzano MD Status:ADM IN Location: ICU [id number] Assessment Plan Assessment/Plan (1) Acute on chronic hypoxic respiratory failure: (2) Cellulitis of leg: QUALIFIERS: Laterality: left Qualified Code(s): L03.116 - Cellulitis of left lower limb PLAN: L toe wound, BLE edema and cellulitis. Possible pneumonia/bronchiti s, but exam and cxr clear. UAgs neg. BNP normal, but with h/o chronic edema and CHF, would recommend TTE and vascular workup. Consider podiatry eval. Will narrow to vanc/ceftriaxone. Will follow, thank you HPI Consult Data Date of Consult: 11/11/24 HPI Narrative Reason for Consultation: cellulitis HPI Narrative: MACARIO WALLACE, is a 49 F with chronic resp failure, on 4-5L home O2, CKD, CHF, COPD, presented with about a week of increased fatigue, several days increased dyspnea, cough with small amount sputum, BLE redness/swelling/pa in/serous drainage. C/o mild chills. RLE worse than LLE. Admitted on vanc/zosyn, feeling a little better. Full ROS performed and neg except as noted above. [facility] Medical History Arthritis Non-smoker CHF (congestive heart failure) History of diabetes mellitus Anemia Hypoxia Morbid obesity Venous stasis dermatitis of both lower extremities BMI 60.0-69.9, adult Noncompliance with CPAP treatment Acute on chronic respiratory failure with hypoxia and hypercapnia Perianal abscess Type 2 diabetes mellitus with hyperglycemia Contusion of knee, right Chronic diastolic (congestive) heart failure Depression Diabetes GERD (gastroesophageal reflux disease) BiPAP (biphasic positive airway pressure) dependence Sleep apnea On home oxygen therapy Smoker COPD (chronic obstructive pulmonary disease) Hypertension Congestive heart failure KERRY (acute kidney injury) Chronic respiratory failure with hypoxia Opiate overdose History of left heart catheterization (LHC) ( 01/05/19) Type 2 diabetes mellitus Old myocardial infarction Essential hypertension Restrictive lung disease secondary to obesity Dyspnea on exertion Pulmonary embolism Hidradenitis Non-healing open wound of left groin Open wound of vulva with complication Necrotizing soft tissue infection Abscess of vulva Soft tissue abscess of inguinal region Respiratory failure with hypoxia Abscess Hyperglycemia due to type 2 diabetes mellitus NSTEMI (non-ST elevated myocardial infarction) Tobacco abuse Hyperlipidemia Morbid obesity History of MRSA infection Anxiety 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 Home Medications ???Medication ???Instructions ???Recorded ???Last Taken ???Type multivit-iron 18 mg-folic acid 400 1 ea PO DAILY supplement 03/26/17 07/14/23 History mcg-calcium 500 mg-minerals tablet omeprazole 40 mg capsule,delayed 40 mg PO DAILY GERD 12/15/18 07/14/23 History release loratadine 10 mg tablet 10 mg PO DAILY PRN Allergies 03/01/20 07/14/23 History apixaban 5 mg tablet 5 mg PO BID blood thinner 08/20/20 07/14/23 History diltiazem HCl 120 mg 120 mg PO DAILY heart rate 08/20/20 07/14/23 History capsule,extended release 24 hr lisinopril 10 mg tablet 10 mg PO DAILY blood pressure 03/26/21 07/14/23 History metformin 500 mg tablet,extended 1,000 mg PO DAILY diabetes 03/26/21 07/14/23 History release 24 hr metoprolol succinate 25 mg 25 mg PO DAILY blood pressure 03/26/21 07/14/23 History tablet,extended release 24 hr atorvastatin 80 mg tablet 80 mg PO QHS cholesterol 02/07/22 07/14/23 History furosemide 40 mg tablet 80 mg PO DAILY diuretic 09/22/22 07/14/23 History insulin lispro 100 unit/mL 50 unit (0.5 mL) subcut TIDAC #0 mL 09/24/22 07/13/23 Rx subcutaneous pen (Humalog KwikPen (U-100) Insulin) albuterol sulfate 2.5 mg/3 mL 2.5 mg inhalation Q4H PRN SOB 12/09/22 07/10/23 History (0.083 %) solution for nebulization fenofibrate nanocrystallized 145 145 mg PO DAILY CHOLESTEROL 12/09/22 07/14/23 History mg tablet insulin glargine U-300 conc 300 104 unit subcut BID diabetes 07/14/23 07/13/23 History unit/mL (3 mL) subcutaneous pen (Toujeo Max U-300 SoloStar) semaglutide 1 mg/dose (4 mg/3 mL) 1 mg subcut .1XW diabetes 07/14/23 07/13/23 History subcutaneous pen injector (Ozempic) metolazone 2.5 mg tablet 2.5 mg PO .every /thurs #8 tabs 07/15/23 Unknown Rx oxycodone-acetamino phen 5 mg-325 1 tab PO Q6H PRN pain 3 days #12 01/15/24 Unknown Rx mg tablet (Percocet) tabs potassium chloride 20 mEq See Rx Instructions .Route 08/05/24 Unknown Rx tablet,extended release(part/cryst) .COMPLEX #60 TABLE (more content not included)... Normal [facility] Magnesiumon 11-11-2024 Magnesium [Mass/Vol] 2.4 mg/dL Normal 1.6-2.[address] [facility] Comment on above: Performed By: #### L 9000.0800 #### [facility] [address] [place], [address] Phosphoruson 11-11-2024 Phosphate [Mass/Vol] 3.6 mg/dL Normal 2.5-4.[address] [facility] Comment on above: Performed By: #### L 9000.0800 #### [facility] [address] [place], [address] BNP,B-Type NATRIURETIC PEPTI Robb 11-10-2024 Natriuretic peptide B (Bld) [Mass/Vol] 20.5 pg/mL Normal 0-100 [facility] Comment on above: Performed By: #### L 501.080 #### [facility] [address] [place], [address] Bedside Glucoseon 11-10-2024 FINGERSTICK GLU 200 mg/dL High -[address] [place] [address] Comment on above: Result Comment: CESAR GEMENT OF PATIENT CARE PER NURSING PROTOCOL Performed By: #### L 499.0042 #### [facility] [address] [place], [address] FINGERSTICK GLU 226 mg/dL High [address] [place] [address] Comment on above: Result Comment: CESAR GEMENT OF PATIENT CARE PER NURSING PROTOCOL Performed By: #### L 501.080 #### [facility] [address] [place], [address] FINGERSTICK GLU 187 mg/dL High [address] [place] [address] Comment on above: Result Comment: CESAR GEMENT OF PATIENT CARE PER NURSING PROTOCOL Performed By: #### L 501.080 #### [facility] [address] [place], [address] FINGERSTICK GLU 309 mg/dL High [address] [place] [address] Comment on above: Result Comment: CESAR GEMENT OF PATIENT CARE PER NURSING PROTOCOL Performed By: #### L 501.080 #### [facility] [address] [place], [address] FINGERSTICK GLU 417 mg/dL High [address] [place] [address] Comment on above: Result Comment: CESAR OLEARY OF PATIENT CARE PER NURSING PROTOCOL Performed By: #### L 501.080 #### [facility] [address] [place], [address] [facility] excess Calc (Bld) [Moles/Vol] 10 mmol/L High -2 to +2 [facility] Comment on above: Performed By: #### L 501.080 #### [facility] [address] [place], [address] Blood Gas Type ART Normal [facility] Comment on above: Performed By: #### L 501.080 #### [facility] [address] [place], [address] CO2 [Moles/Vol] 38 mmol/L Normal [facility] Comment on above: Performed By: #### L 501.080 #### [facility] [address] [place], [address] Comment AVAPS 25 10 Normal [facility] Comment on above: Performed By: #### L 501.080 #### [facility] [address] [place], [address] FI02 50.0 Normal [facility] Comment on above: Performed By: #### L 501.080 #### [facility] [address] [place], [address] HCO3 (Bld) [Moles/Vol] 35.5 mmol/L High 22-26 [facility] Comment on above: Performed By: #### L 501.080 #### [facility] [address] [place], [address] Mode Not entered Normal [facility] Comment on above: Performed By: #### L 501.080 #### [facility] [address] [place], [address] O2 Delivery Dev BiPAP [facility] Comment on above: Performed By: #### L 501.080 #### [facility] [address] [place], [address] pCO2 67.1 mmHg Invalid Interpretation Code 35-45 [facility] Comment on above: Performed By: #### L 501.080 #### [facility] [address] [place], [address] PEEP 8 Normal [facility] Comment on above: Performed By: #### L 501.080 #### [facility] [address] [place], [address] pH (Bld) 7.33 [pH] Low 7.35-7.45 [facility] Comment on above: Performed By: #### L 501.080 #### [facility] [address] [place], [address] PO2 143 mmHG High 75-100 [facility] Comment on above: Performed By: #### L 501.080 #### [facility] [address] [place], [address] Read Back By Yes [facility] Comment on above: Performed By: #### L 501.080 #### [facility] [address] [place], [address] Results To FADI [facility] Comment on above: Performed By: #### L 501.080 #### [facility] [address] [place], [address] RR 12 Normal [facility] Comment on above: Performed By: #### L 501.080 #### [facility] [address] [place], [address] SITE R Brach Normal [facility] Comment on above: Performed By: #### L 501.080 #### [facility] [address] [place], [address] SO2 99 Normal 95-99 [facility] Comment on above: Performed By: #### L 501.080 #### [facility] [address] [place], [address] Time Given 11:58:12 Normal [facility] Comment on above: Performed By: #### L 501.080 #### [facility] [address] [place], [address] Vt 500.0 mL Normal [facility] Comment on above: Performed By: #### L 501.080 #### [facility] [address] [place], [address] CBC W/Diff, Automatedon 12 Absolute Lymph 2.08 X10 3/uL Normal 0.83-4.51 [facility] Comment on above: Performed By: #### L 501.080 #### [facility] [address] [place], [address] Absolute Neut 16.7 X10 3/uL High 2.0-7.7 [facility] Comment on above: Performed By: #### L 501.080 #### [facility] [address] [place], [address] Basophils/100 WBC (Bld) 0.5 % Normal 0-1 [facility] Comment on above: Performed By: #### L 501.080 #### [facility] [address] [place], [address] Eosinophils/100 WBC (Bld) 0.4 % Normal 0-5 [facility] Comment on above: Performed By: #### L 501.080 #### [facility] [address] [place], [address] Erythrocyte distribution width (RBC) [Ratio] 13.4 % Normal 11.6-14.6 [facility] Comment on above: Performed By: #### L 501.080 #### [facility] [address] [place], [address] Hematocrit (Bld) [Volume fraction] 31.6 % Low 37-47 [facility] Comment on above: Performed By: #### L 501.080 #### [facility] [address] [place], [address] Hemoglobin (Bld) [Mass/Vol] 9.5 g/dL Low 12.0-15.0 [facility] Comment on above: Performed By: #### L 501.080 #### [facility] [address] [place], [address] IG% 0.900 Normal 0.0-0.9 [facility] Comment on above: Result Comment: IG% - Immature Granulocytes (promyelocytes, myelocytes and metamyelocytes) > 1% indicates that a LEFT SHIFT is Present. Performed By: #### L 501.080 #### [facility] [address] [place], [address] Lymphocytes/100 WBC (Bld) 10.2 % Low 19-41 [facility] Comment on above: Performed By: #### L 501.080 #### [facility] [address] [place], [address] MCH (RBC) [Entitic mass] 27.7 pg Normal 27.0-32.0 [facility] Comment on above: Performed By: #### L 501.080 #### [facility] [address] [place], [address] MCHC (RBC) [Mass/Vol] 30.1 g/dL Low 32-36 [facility] Comment on above: Performed By: #### L 501.080 #### [facility] [address] [place], [address] MCV (RBC) [Entitic vol] 92.1 fL Normal 81-99 [facility] Comment on above: Performed By: #### L 501.080 #### [facility] [address] [place], [address] Monocytes/100 WBC (Bld) 5.6 % Normal 0-10 [facility] Comment on above: Performed By: #### L 501.080 #### [facility] [address] [place], [address] Neutrophils/100 WBC (Bld) 82.4 % High 47-70 [facility] Comment on above: Performed By: #### L 501.080 #### [facility] [address] [place], [address] Nucleated RBC (Bld) [#/Vol] 0 10*3/uL Normal 0-5 [facility] Comment on above: Performed By: #### L 501.080 #### [facility] [address] [place], [address] Platelet mean volume (Bld) [Entitic vol] 10.1 fL Normal 6.2-12.0 [facility] Comment on above: Performed By: #### L 501.080 #### [facility] [address] [place], [address] Platelets (Bld) [#/Vol] 263 10*3/uL Normal 150-450 [facility] Comment on above: Performed By: #### L 501.080 #### [facility] [address] [place], [address] RBC (Bld) [#/Vol] 3.43 10*6/uL Low 4.2-5.4 [facility] Comment on above: Performed By: #### L 501.080 #### [facility] [address] [place], [address] RDW SD 45.4 fl High 35.1-43.9 [facility] Comment on above: Performed By: #### L 501.080 #### [facility] [address] [place], [address] WBC (Bld) [#/Vol] 20.3 10*3/uL High 4.4-11.0 [facility] Comment on above: Performed By: #### L 501.080 #### [facility] [address] [place], [address] Comprehensive Metabolic Prof ilon 11-10-2024 Albumin [Mass/Vol] 2.8 g/dL Low 3.2-5.0 [facility] Comment on above: Performed By: #### L 501.080 #### [facility] [address] [place], [address] Albumin/Globulin [Mass ratio] 0.7 {ratio} Low 0.9-2.4 [facility] Comment on above: Performed By: #### L 501.080 #### [facility] [address] [place], [address] ALK P 74 U/L Normal 45-117 [facility] Comment on above: Performed By: #### L 501.080 #### [facility] [address] [place], [address] ALT [Catalytic activity/Vol] 17 U/L Normal 13-56 [facility] Comment on above: Performed By: #### L 501.080 #### [facility] [address] [place], [address] AST [Catalytic activity/Vol] 12 U/L Low 15-37 [facility] Comment on above: Performed By: #### L 501.080 #### [facility] [address] [place], [address] Bilirubin [Mass/Vol] 0.40 mg/dL Normal 0.20-1.[address] [facility] Comment on above: Result Comment: For patients on eltrombopag therapy, use of Dimension [place] TBIL is not recommended. Performed By: #### L 501.080 #### [facility] [address] [place], [address] BUN/CRE 27.5 RATIO High 10-20 [facility] Comment on above: Performed By: #### L 501.080 #### [facility] [address] [place], [address] CA,Total 8.4 mg/dL Low 8.5-10.1 [facility] Comment on above: Performed By: #### L 501.080 #### [facility] [address] [place], [address] Chloride [Moles/Vol] 94 mmol/L Low 98-[address] [facility] Comment on above: Performed By: #### L 501.080 #### [facility] [address] [place], [address] CO2 [Moles/Vol] 33.0 mmol/L High 21.0-32.0 [facility] Comment on above: Performed By: #### L 501.080 #### [facility] [address] [place], [address] Creatinine [Mass/Vol] 1.20 mg/dL High 0.55-1.02 [facility] Comment on above: Result Comment: The validity of the calculated GFR GFRAA in patients over 70 years has not been determined. Clinical correlation is essential. Performed By: #### L 501.080 #### [facility] [address] [place], [address] ECRCL 95.12 ml/min Normal [facility] Comment on above: Performed By: #### L 501.080 #### [facility] [address] [place], [address] EST GFR - AA 62 mL/min Normal >60 [facility] Comment on above: Result Comment: Afri can [place] GFR Calc Performed By: #### L 501.080 #### [facility] [address] [place], [address] GAP 5 Normal 5-15 [facility] Comment on above: Performed By: #### L 501.080 #### [facility] [address] [place], [address] GFR/1.73 sq M.predicted among non-blacks MDRD (S/P/Bld) [Vol rate/Area] 51 mL/min/{1.73_m2} Low >60 [facility] Comment on above: Result Comment: Non- GFR Calc Performed By: #### L 501.080 #### [facility] [address] [place], [address] Globulin (S) [Mass/Vol] 4.2 g/dL Normal 2.2-4.2 [facility] Comment on above: Performed By: #### L 501.080 #### [facility] [address] [place], [address] Glucose [Mass/Vol] 321 mg/dL High 74-106 [facility] Comment on above: Result Comment: Gluc ose result greater than or equal to 200 mg/dL suggests DIABETES MELLITUS per A.D.A. criteria. Performed By: #### L 501.080 #### [facility] [address] [place], [address] Potassium [Moles/Vol] 4.0 mmol/L Normal 3.5-5.1 [facility] Comment on above: Performed By: #### L 501.080 #### [facility] [address] [place], [address] Sodium [Moles/Vol] 132 mmol/L Low 136-145 [facility] Comment on above: Performed By: #### L 501.080 #### [facility] [address] [place], [address] T PROT 7.0 g/dL Normal 6.4-8.2 [facility] Comment on above: Performed By: #### L 501.080 #### [facility] [address] [place], [address] Urea nitrogen [Mass/Vol] 33 mg/dL High 7-18 [facility] Comment on above: Performed By: #### L 501.080 #### [facility] [address] [place], [address] Gram Stainon 11-10-2024 GS List Antibiotics Last 48 Hours? vancomycin, zosyn Gram Stain Rare Gram positive cocci Rare White Blood Cells No Epithelial cells Normal [facility] Comment on above: Performed By: #### L 501.080 #### [facility] [address] [place], [address] Hemoglobin A1con 11-10-2024 HbA1c (Bld) [Mass fraction] 10.4 % High 3.8-5.6 [facility] Comment on above: Result Comment: Norm al < 5.7 % Prediabetic 5.7 - 6.4 % Diabetic >or= 6.5 % Please note range changes. Performed By: #### L 501.080 #### [facility] [address] [place], [address] Lactic Acidon 11-10-2024 Lactate [Moles/Vol] 1.1 mmol/L Normal 0.4-1.9 [facility] Comment on above: Performed By: #### L 509.7001 #### [facility] [address] [place], [address] Legionella Antigen Urineon 1 01-11-2024 LEGU Legionella Antigen result interpretation: L pneumo Ag Ur Ql Negative Presumptive negative for Legionella pneumophila serogroup 1 antigen in urine, suggesting no recent or current infection. L pneumo Ag Ur Ql Legionella Ag, Urine Negative (See interpretation below) * This is an amended result. * A prior result that was reported as final has been changed. 11/12/24 0835 by JENNIFER [facility] Comment on above: Performed By: #### L 400.0001 #### [facility] [address] [place], [address] M100.678on 11-10-2024 M100.678 Pending SARS-CoV-2 (COVID 19) Negative INFLUENZA A Negative INFLUENZA B Negative RSV PCR Negative [facility] Comment on above: Performed By: #### L 501.080 #### [facility] [address] [place], [address] M8200.1075on 11-10-2024 M8200.1075 MRSA/SAUR WOUND PCR Copy of report sent to Infection Control Printer MS#[id number] 11/10/24 0249 BOB. MRSA PCR MRSA POSITIVE A STAPH. AUREUS PCR STAPH AUREUS POSITIVEA STAPH. AUREUS PCR STAPH AUREUS POSITIVEA mecA mecA Resistance Marker DetectedA Meth. resistant Staph. aureus * This is an amended result. * A prior result that was reported as final has been changed. 11/10/24 0736 [facility] Comment on above: Performed By: #### L 501.080 #### [facility] [address] [facility] [place] [facility] [place], [address] RESPIRATORY PANEL MOLECULARo n 11-10-2024 RP PANEL ADENOVIRUS Not Detected INFLUENZA A Not Detected INFLUENZA A (SUBTYPE H1) Not Detected INFLUENZA A (SUBTYPE H3) Not Detected INFLUENZA B Not Detected HUMAN METAPHNEUMO Not Detected PARAINFLUENZA 1 Not Detected PARAINFLUENZA 2 Not Detected PARAINFLUENZA 3 Not Detected PARAINFLUENZA 4 Not Detected RHINOVIRUS Not Detected RSV A Not Detected RSV B Not Detected Normal [facility] Comment on above: Performed By: #### L 400.0001 #### [facility] [address] [facility] [place], [address] Strep pneumoniae Antig(UR,CS F)on 11-10-2024 STPAG URINE INTERPRETATION Negative Urine Presumptive negative for pneumococcal pneumonia, suggesting no current or recent pneumococcal infection. Infection due to S pneumoniae cannot be ruled out since the antigen present in the sample may be below the detection limit of the test. Strep pneumoniae Antig(UR,CSF) Strep pneumo Test Negative URINE (See interpretation below) * This is an amended result. * A prior result that was reported as final has been changed. 11/12/24834 by JENNIFER Previously reported as: Normal [facility] Comment on above: Performed By: #### L 400.0001 #### [facility] [facility] [place], [address] Acetone Serumon 11-09-2024 ACETONE SERUM Negative Normal NEG [facility] Comment on above: Performed By: #### L 509.7001 #### [facility] [address] [place], [place] [address]. [place], [address] Blood Gases by CPSon 024 ANIL TEST N/A Normal [facility] Comment on above: Performed By: #### L 9000.0800 #### [facility] [address] [place], [address] Base excess Calc (Bld) [Moles/Vol] 9 mmol/L High -2 to +2 [facility] Comment on above: Performed By: #### L 0.0800 #### [facility] [address] [place], [address] Blood Gas Type ART Normal [facility] Comment on above: Performed By: #### L 8999.0800 #### [facility] [address] [place], [address] CO2 [Moles/Vol] 37 mmol/L Normal [facility] Comment on above: Performed By: #### L 0.0800 #### [facility] [address] [place], [address] FI02 6.0 Normal [facility] Comment on above: Performed By: #### L 8999.0800 #### [facility] [address] [place], [address] HCO3 (Bld) [Moles/Vol] 34.9 mmol/L High 22-26 [facility] Comment on above: Performed By: #### L 8999.0800 #### [facility] [address] [place], [address] Mode Not entered Normal [facility] Comment on above: Performed By: #### L 8999.0800 #### [facility] [address] [place], [address] O2 Delivery Dev Cannula Normal [facility] Comment on above: Performed By: #### L 8999.0800 #### [facility] [address] [place], [address] pCO2 65.2 mmHg High 35-45 [facility] Comment on above: Performed By: #### L 8999.0800 #### [facility] [address] [place], [address] pH (Bld) 7.34 [pH] Low 7.35-7.45 [facility] Comment on above: Performed By: #### L 9000.0800 #### [facility] [address] [place], [address] PO2 88 mmHG Normal 75-100 [facility] Comment on above: Performed By: #### L 9000.0800 #### [facility] [address] [place], [address] SITE L Radial Normal [facility] Comment on above: Performed By: #### L 9000.0800 #### [facility] [address] [place], [address] SO2 96 Normal 95-99 [facility] Comment on above: Performed By: #### L 9000.0800 #### [facility] [address] [place], [address] CBC W/Diff, Automatedon 12-1 0-2024 Absolute Lymph 1.98 X10 3/uL Normal 0.83-4.51 [facility] Comment on above: Performed By: #### L 925.7008 #### [facility] [address] [place], [address] Absolute Neut 16.8 X10 3/uL High 2.0-7.7 [facility] Comment on above: Performed By: #### L 479.1761 #### [facility] [address] [place], [address] Basophils/100 WBC (Bld) 0.5 % Normal 0-1 [facility] Comment on above: Performed By: #### L 425.2250 #### [facility] [address] [place], [address] Eosinophils/100 WBC (Bld) 0.2 % Normal 0-5 [facility] Comment on above: Performed By: #### L 509.7001 #### [facility] [address] [place], [address] Erythrocyte distribution width (RBC) [Ratio] 13.5 % Normal 11.6-14.6 [facility] Comment on above: Performed By: #### L 509.7001 #### [facility] [address] [place], [address] Hematocrit (Bld) [Volume fraction] 31.3 % Low 37-47 [facility] Comment on above: Performed By: #### L 509.7001 #### [facility] [address] [place], [address] Hemoglobin (Bld) [Mass/Vol] 9.9 g/dL Low 12.0-15.0 [facility] Comment on above: Performed By: #### L 509.7001 #### [facility] [address] [place], [address] IG% 1.000 High 0.0-0.9 [facility] Comment on above: Result Comment: IG% - Immature Granulocytes (promyelocytes, myelocytes and metamyelocytes) > 1% indicates that a LEFT SHIFT is Present. Performed By: #### L 509.7001 #### [facility] [address] [place], [address] Lymphocytes/100 WBC (Bld) 9.8 % Low 19-41 [facility] Comment on above: Performed By: #### L 509.7001 #### [facility] [address] [place], [address] MCH (RBC) [Entitic mass] 28.4 pg Normal 27.0-32.0 [facility] Comment on above: Performed By: #### L 509.7001 #### [facility] [address] [place], [address] MCHC (RBC) [Mass/Vol] 31.6 g/dL Low 32-36 [facility] Comment on above: Performed By: #### L 509.7001 #### [facility] [address] [place], [address] MCV (RBC) [Entitic vol] 89.9 fL Normal 81-99 [facility] Comment on above: Performed By: #### L 509.700 #### [facility] [address] [place], [address] Monocytes/100 WBC (Bld) 5.3 % Normal 0-10 [facility] Comment on above: Performed By: #### L 509.7001 #### [facility] [address] [place], [address] Neutrophils/100 WBC (Bld) 83.2 % High 47-70 [facility] Comment on above: Performed By: #### L 509.7001 #### [facility] [address] [place], [address] Nucleated RBC (Bld) [#/Vol] 0 10*3/uL Normal 0-5 [facility] Comment on above: Performed By: #### L 509.7001 #### [facility] [address] [place], [address] Platelet mean volume (Bld) [Entitic vol] 10.2 fL Normal 6.2-12.0 [facility] Comment on above: Performed By: #### L 509.7001 #### [facility] [address] [place], [address] Platelets (Bld) [#/Vol] 280 10*3/uL Normal 150-450 [facility] Comment on above: Performed By: #### L 509.7001 #### [facility] [address] [place], [address] RBC (Bld) [#/Vol] 3.48 10*6/uL Low 4.2-5.4 [facility] Comment on above: Performed By: #### L 509.7001 #### [facility] [address] [place], [address] RDW SD 44.3 fl High 35.1-43.9 [facility] Comment on above: Performed By: #### L 509.7001 #### [facility] [address] [place], [address] WBC (Bld) [#/Vol] 20.2 10*3/uL High 4.4-11.0 [facility] Comment on above: Performed By: #### L 509.7001 #### [facility] [address] [place], [address] Chest 1 View (Portable)on Chest 1 View (Portable) [facility] Imaging Services [address] [place] [address] Chest 1 View (Portable) MR#: [id number] Acct: [id number] Name: MACARIO WALLACE Rep #: [id number] : 1975 F 49 From: Gilbert Jameson DO PCP: Dr. Delmy Solorzano MD Status: REG ER Study: Chest 1 View (Portable) Date of Exam: 11/09/24 Exam# [id number] Ordering Dr: Faraz Flores DO -[id number] INDICATION: SOB EXAMINATION/TECHNIQ UE: X-RAY - XR Chest 1 View COMPARISON: April 19, 2024 FINDINGS: LINES/DEVICES: None. LUNGS: No consolidation, edema or effusion. No pneumothorax. MEDIASTINUM AND CARDIOVASCULAR STRUCTURES: Cardiac silhouette not enlarged. Central pulmonary vascular prominence. Central airways and mediastinal contour are unremarkable. BONES AND SOFT TISSUES: Unremarkable. RAD/Chest 1 View (Portable) IMPRESSION: Slight central pulmonary vascular prominence. Electronically Signed: Gilbert Jameson DO at 21:22 EST , CC: Dr. Delmy Solorzano MD; Dr. 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, [address] Albumin/Globulin [Mass ratio] 0.7 {ratio} Low 0.9-2.4 [facility] Comment on above: Order Comment: 'TROP ' Serial specimen #1, #2 or #3: 1 Performed By: #### L 509.7001 #### [facility] [address] [place], [address] ALK P 94 U/L Normal 45-117 [facility] Comment on above: Order Comment: 'TROP ' Serial specimen #1, #2 or #3: 1 Performed By: #### L 509.7001 #### [facility] [address] [place], [address] ALT [Catalytic activity/Vol] 21 U/L Normal 13-56 [facility] Comment on above: Order Comment: 'TROP ' Serial specimen #1, #2 or #3: 1 Performed By: #### L 509.7001 #### [facility] [address] [place], [address] AST [Catalytic activity/Vol] 18 U/L Normal 15-37 [facility] Comment on above: Order Comment: 'TROP ' Serial specimen #1, #2 or #3: 1 Performed By: #### L 509.7001 #### [facility] [address] [place], [address] Bilirubin [Mass/Vol] 0.30 mg/dL Normal 0.20-1.[address] [facility] Comment on above: Order Comment: 'TROP ' Serial specimen #1, #2 or #3: 1 Result Comment: For patients on eltrombopag therapy, use of Dimension [place] TBIL is not recommended. Performed By: #### L 509.7001 #### [facility] [address] [place], [address] BUN/CRE 25.6 RATIO High 10-20 [facility] Comment on above: Order Comment: 'TROP ' Serial specimen #1, #2 or #3: 1 Performed By: #### L 509.7001 #### [facility] [address] [place], [address] CA,Total 8.9 mg/dL Normal 8.5-10.1 [facility] Comment on above: Order Comment: 'TROP ' Serial specimen #1, #2 or #3: 1 Performed By: #### L 509.7001 #### [facility] [address] [place], [address] Chloride [Moles/Vol] 89 mmol/L Low 98-[address] [facility] Comment on above: Order Comment: 'TROP ' Serial specimen #1, #2 or #3: 1 Performed By: #### L 509.7001 #### [facility] [address] [place], [address] CO2 [Moles/Vol] 31.0 mmol/L Normal 21.0-32.0 [facility] Comment on above: Order Comment: 'TROP ' Serial specimen #1, #2 or #3: 1 Performed By: #### L 509.7001 #### [facility] [address] [place], [address] Creatinine [Mass/Vol] 1.33 mg/dL High 0.55-1.02 [facility] Comment on above: Order Comment: 'TROP ' Serial specimen #1, #2 or #3: 1 Result Comment: The validity of the calculated GFR GFRAA in patients over 70 years has not been determined. Clinical correlation is essential. Performed By: #### L 509.7001 #### [facility] [address] [place], [address] ECRCL 85.69 ml/min Normal [facility] Comment on above: Order Comment: 'TROP ' Serial specimen #1, #2 or #3: 1 Performed By: #### L 509.7004 #### [facility] [address] [place], [address] EST GFR - AA 55 mL/min Low >60 [facility] Comment on above: Order Comment: 'TROP ' Serial specimen #1, #2 or #3: 1 Result Comment: Afri can [place] GFR Calc Performed By: #### L 509.7001 #### [facility] [address] [place], [address] GAP 8 Normal 5-15 [facility] Comment on above: Order Comment: 'TROP ' Serial specimen #1, #2 or #3: 1 Performed By: #### L 509.7001 #### [facility] [address] [place], [address] GFR/1.73 sq M.predicted among non-blacks MDRD (S/P/Bld) [Vol rate/Area] 45 mL/min/{1.73_m2} Low >60 [facility] Comment on above: Order Comment: 'TROP ' Serial specimen #1, #2 or #3: 1 Result Comment: Non- GFR Calc Performed By: #### L 509.7001 #### [facility] [address] [place], [address] Globulin (S) [Mass/Vol] 4.3 g/dL High 2.2-4.2 [facility] Comment on above: Order Comment: 'TROP ' Serial specimen #1, #2 or #3: 1 Performed By: #### L 509.7001 #### [facility] [address] [place], [address] Glucose [Mass/Vol] 429 mg/dL High 74-106 [facility] Comment on above: Order Comment: 'TROP ' Serial specimen #1, #2 or #3: 1 Result Comment: Gluc ose result greater than or equal to 200 mg/dL suggests DIABETES MELLITUS per A.D.A. criteria. Performed By: #### L 509.7001 #### [facility] [address] [place], [address] Potassium [Moles/Vol] 4.0 mmol/L Normal 3.5-5.1 [facility] Comment on above: Order Comment: 'TROP ' Serial specimen #1, #2 or #3: 1 Performed By: #### L 509.7001 #### [facility] [address] [place], [address] Sodium [Moles/Vol] 129 mmol/L Low 136-145 [facility] Comment on above: Order Comment: 'TROP ' Serial specimen #1, #2 or #3: 1 Performed By: #### L 509.7001 #### [facility] [address] [place], [address] T PROT 7.3 g/dL Normal 6.4-8.2 [facility] Comment on above: Order Comment: 'TROP ' Serial specimen #1, #2 or #3: 1 Performed By: #### L 509.7001 #### [facility] [address] [place], [address] Urea nitrogen [Mass/Vol] 34 mg/dL High 7-18 [facility] Comment on above: Order Comment: 'TROP ' Serial specimen #1, #2 or #3: 1 Performed By: #### L 509.7001 #### [facility] [address] [place], [address] Emergency Department Summary on 11-09-2024 Emergency Department Summary [facility] Medical Records Department [address] [place] [address] Emergency Department Summary 11/09/24 MR#: [id number] Acct: [id number] Name: MACARIO WALLACE Rep #: [id number] : 1975 49 From: Faraz Flores DO PCP: Dr. Delmy Solorzano MD Status:REG ER Location: ED HPI History of Present Illness Chief Complaint: Shortness of Breath Informant: patient Onset/Context/Arnaldoin bonnie Onset: Days Context: gradual Timing: Continuous Quality: Positive for Dyspnea on exertion Worsened by: Exertion Relieved by: Rest Associated Symptoms cough, subjective, chills and yellow sputum; Negative for rhinorrhea, post nasal drip, ear pain, fever, sore throat, sweats, clear sputum, white sputum or green sputum Narrative Narrative: Patient presents with shortness of breath has been getting worse over the past few days. Patient states it is gradually getting worse. Patient states her breathing is worse with any exertion. Patient states it is constant. Patient states it does get better with rest. Patient states she is coughing up some yellow and brown sputum. Patient admits to some subjective chills but denies any fevers. Patient denies any chest pain. Patient denies any sore throat or rhinorrhea. Patient states she is diabetic and has been having some polyuria and polydipsia. Patient states her blood sugars at home have been increasing. The patient admits to some redness and swelling to her lower legs and has been having some drainage from her legs.. PE Risk Factors: Negative for Cancer, OCP + Smoking + > 35, Prior DVT or PE, Recent immobilization, Recent surgery or Recent travel [facility] Medical History Arthritis Non-smoker CHF (congestive heart failure) History of diabetes mellitus Anemia Hypoxia Morbid obesity Venous stasis dermatitis of both lower extremities BMI 60.0-69.9, adult Noncompliance with CPAP treatment Acute on chronic respiratory failure with hypoxia and hypercapnia Perianal abscess Type 2 diabetes mellitus with hyperglycemia Contusion of knee, right Chronic diastolic (congestive) heart failure Depression Diabetes GERD (gastroesophageal reflux disease) BiPAP (biphasic positive airway pressure) dependence Sleep apnea On home oxygen therapy Smoker COPD (chronic obstructive pulmonary disease) Hypertension Congestive heart failure KERRY (acute kidney injury) Chronic respiratory failure with hypoxia Opiate overdose History of left heart catheterization (LHC) ( 01/05/19) Type 2 diabetes mellitus Old myocardial infarction Essential hypertension Restrictive lung disease secondary to obesity Dyspnea on exertion Pulmonary embolism Hidradenitis Non-healing open wound of left groin Open wound of vulva with complication Necrotizing soft tissue infection Abscess of vulva Soft tissue abscess of inguinal region Respiratory failure with hypoxia Abscess Hyperglycemia due to type 2 diabetes mellitus NSTEMI (non-ST elevated myocardial infarction) Tobacco abuse Hyperlipidemia Morbid obesity History of MRSA infection Anxiety 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 Home Medications ???Medication ???Instructions ???Recorded ???Last Taken ???Type multivit-iron 18 mg-folic acid 400 1 ea PO DAILY supplement 03/26/17 07/14/23 History mcg-calcium 500 mg-minerals tablet omeprazole 40 mg capsule,delayed 40 mg PO DAILY GERD 12/15/18 07/14/23 History release loratadine 10 mg tablet 10 mg PO DAILY PRN Allergies 03/01/20 07/14/23 History apixaban 5 mg tablet 5 mg PO BID blood thinner 08/20/20 07/14/23 History diltiazem HCl 120 mg 120 mg PO DAILY heart rate 08/20/20 07/14/23 History capsule,extended release 24 hr lisinopril 10 mg tablet 10 mg PO DAILY blood pressure 03/26/21 07/14/23 History metformin 500 mg tablet,extended 1,000 mg PO DAILY diabetes 03/26/21 07/14/23 History release 24 hr metoprolol succinate 25 mg 25 mg PO DAILY blood pressure 03/26/21 07/14/23 History tablet,extended release 24 hr atorvastatin 80 mg tablet 80 mg PO QHS cholesterol 02/07/22 07/14/23 History furosemide 40 mg tablet 80 mg PO DAILY diuretic 09/22/22 07/14/23 History insulin lispro 100 unit/mL 50 unit (0.5 mL) subcut TIDAC #0 mL 09/24/22 07/13/23 Rx subcutaneous pen (Humalog KwikPen (U-100) Insulin) albuterol sulfate 2.5 mg/3 mL 2.5 mg inhalation Q4H PRN SOB 12/09/22 07/10/23 History (0.083 %) solution for nebulization fenofibrate nanocrystallized 145 145 mg PO DAILY CHOLESTEROL 12/09/22 07/14/23 History mg tablet insulin glargine U-300 conc 300 104 unit subcut BID diabetes 07/14/23 07/13/23 History unit/mL (3 mL) subcutaneous pen (Toujeo Max U-300 SoloStar) semaglutide 1 mg/dose (4 mg/3 mL) 1 mg subcut .1XW diabetes 07/14/23 07/13/23 History subcutaneous pen injector (Ozempic) m (more content not included)... Normal [facility] H AND P Exam - [facility] 11-09-2024 H&P Exam - Hospitalist [facility] Medical Records Department [address] [place] [address] H P Exam - Hospitalist 11/09/24 2300 MR#: [id number] Acct: [id number] Name: MACARIO WALLACE Rep #: [id number] : 1975 49 From: Olamide Mas MD PCP: Dr. Delmy Solorzano MD Status:ADM IN Location: ICU [id number] HPI - General General Date of Admission: 11/09/24 Date of Service: 11/09/24 Chief Complaint: Dyspnea, cough, increased productive sputum, BL LE redness, seeping stasis blisters. 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, uncertain, HFpEF, COPD w/ Chronic Hypoxic and Hypercapnic Respiratory Failure (4L NC), LOGAN on BIPAP, HTN, hLD, GERD, Anxiety and Depression, Tobacco use, Diabetes mellitus type II with chronic neuropathy, Hx VTE who presents to the [facility] ED on 11/09/24 with history of dyspnea worse with exertion with recent cough with productive yellow sputum, subjective chills but no specifically reported fever or measured elevated temperatures worsening over the last 2 to 3 days with some improvement of her dyspnea with rest with elevated blood sugars at home as well as some redness and swelling over the last 48 hours to her lower legs as well as increased drainage but this is also a chronic component however given her respiratory status prompted eventual ED evaluation to be cautious. She does report Workup in the ED included T1 100.4, heart 108, BP 96/45, respiratory rate 20, 84% on room air initially improving to 97% initially on 4 L nasal cannula with most recent repeat vital signs T98.4, heart rate 107, BP 150/53, respiratory rate 20, 94% on 4 L nasal cannula, CBC with WBC 20.2, hemoglobin 9.9, MCV 89.9, platelet 280 with left shift, coags with PT 17.9, INR 1.5, PTT 40.9, ABG with pH 7.34, bicarb 34.9, pCO2 65.2, pO2 88 on nasal cannula, CMP with sodium 129, chloride 89, BUN/creatinine 34/1.33, GFR 45, glucose 429, lactic acid 2.3, hepatic profile not marked appearing, troponin 33, urinalysis with glucose of thousand otherwise unremarkable, acetone negative, blood culture x 2 pending per ED, chest x-ray with slightly central pulmonary vascular prominence otherwise no evidence of any consolidation or acute cardiopulmonary findings. In the ED patient administered 1 L normal saline, Unasyn and vancomycin as well as morphine 4 mg IV x 1, Zofran 4 mg IV x 1. [facility] Medical History Arthritis Non-smoker CHF (congestive heart failure) History of diabetes mellitus Anemia Hypoxia Morbid obesity Venous stasis dermatitis of both lower extremities BMI 60.0-69.9, adult Noncompliance with CPAP treatment Acute on chronic respiratory failure with hypoxia and hypercapnia Perianal abscess Type 2 diabetes mellitus with hyperglycemia Contusion of knee, right Chronic diastolic (congestive) heart failure Depression Diabetes GERD (gastroesophageal reflux disease) BiPAP (biphasic positive airway pressure) dependence Sleep apnea On home oxygen therapy Smoker COPD (chronic obstructive pulmonary disease) Hypertension Congestive heart failure KERRY (acute kidney injury) Chronic respiratory failure with hypoxia Opiate overdose History of left heart catheterization (LHC) ( 01/05/19) Type 2 diabetes mellitus Old myocardial infarction Essential hypertension Restrictive lung disease secondary to obesity Dyspnea on exertion Pulmonary embolism Hidradenitis Non-healing open wound of left groin Open wound of vulva with complication Necrotizing soft tissue infection Abscess of vulva Soft tissue abscess of inguinal region Respiratory failure with hypoxia Abscess Hyperglycemia due to type 2 diabetes mellitus NSTEMI (non-ST elevated myocardial infarction) Tobacco abuse Hyperlipidemia Morbid obesity History of MRSA infection Anxiety 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 Home Medications ???Medication ???Instructions ???Recorded ???Last Taken ???Type multivit-iron 18 mg-folic acid 400 1 ea PO DAILY supplement 03/26/17 07/14/23 History mcg-calcium 500 mg-minerals tablet omeprazole 40 mg capsule,delayed 40 mg PO DAILY GERD 12/15/18 07/14/23 History release loratadine 10 mg tablet 10 mg PO DAILY PRN Allergies 03/01/20 07/14/23 History apixaban 5 mg tablet 5 mg PO BID blood thinner 08/20/20 07/14/23 History diltiazem HCl 120 mg 120 mg PO DAILY heart rate 08/20/20 07/14/23 History capsule,extended release 24 hr lisinopril 10 mg tablet 10 mg PO DAILY blood pressure 03/26/21 07/14/23 History metformin 500 mg tablet,extended 1,000 mg PO DAILY diabetes 03/26/21 07/14/23 History release 24 hr metoprolol succinate 25 mg 25 mg PO DAILY blood pressure 03/26/21 07/14/23 History tablet,extended release 24 hr atorvastatin 80 mg tablet 80 mg PO QHS cholesterol 03/ (more content not included)... Normal [facility] L501.4020on 11-09-2024 TROPONIN-I HS 33 pg/mL Normal 3.0-54.0 [facility] Comment on above: Order Comment: 'TROP ' Serial specimen #1, #2 or #3: 1 Result Comment: Lindy lopez Note: New Test Units and Gender Specific Reference Ranges. For more information see Policy Stat Procedure [place] High Sensitivity Troponin (TNIH) and attachments. Performed By: #### L 509.7001 #### [facility] [address] [place], [address] Lactic Acidon 11-09-2024 Lactate [Moles/Vol] 2.3 mmol/L Invalid Interpretation Code 0.4-1.9 [facility] Comment on above: Order Comment: Y Result Comment: Crit ical Result(s) Called at: 20:46:06 11/09/2024 by: YVROSE MARTINEZ TO DAPHNEY SANCHEZ. Results read back by same. Performed By: #### L 509.7001 #### [facility] [address] [place], [address] Magnesiumon 11-09-2024 Magnesium [Mass/Vol] 1.1 mg/dL Low 1.6-2.[address] [facility] Comment on above: Order Comment: Comme nts: May add to ED labsComments: may add to ED labs Performed By: #### L 499.0043 #### [facility] [address] [place], [address] Partial Thromboplast Timeon 11-09-2024 aPTT Coag (Bld) [Time] 40.9 s High 24.1-36.2 [facility] Comment on above: Performed By: #### L 509.7001 #### [facility] [address] [place], [address] Phosphoruson 11-09-2024 Phosphate [Mass/Vol] 2.3 mg/dL Low 2.5-4.[address] [facility] Comment on above: Order Comment: Comme nts: May add to ED labsComments: may add to ED labs Performed By: #### L [id number] #### [facility] [address] [place], [address] Procalcitoninon 11-09-2024 Procalcitonin 0.27 ng/mL High 0.00-0.09 [facility] Comment on above: Result Comment: A procalcitonin (PCT) level above 2.0 ng/mL on the first day of ICU admission is associated with a high risk for progression to severe sepsis and/or septic shock. A PCT level below 0.5 ng/mL on the first day of ICU admission is associated with a low risk for progression to severe and/or septic shock. Note: Concentrations <0.5 ng/mL do not exclude an infection on account of localized infections (without systemic signs) which can be associated with such low concentrations, or a systemic infection in its initial stages (<6 hours). Furthermore, increased procalcitonin can occur without infection. PCT concentrations between 0.5 and 2.0 ng/mL should be interpreted taking into account the patient's history. It is recommended to retest PCT within 6-24 hours if any concentrations <2 ng/mL are obtained. Performed By: #### L [id number] #### [facility] [address] [place], [address] Prothrombin Time w/INRon INR Coag (PPP) [Relative time] 1.5 {INR} Normal [facility] Comment on above: Performed By: #### L [id number] #### [facility] [address] [place], [address] PT Coag (PPP) [Time] 17.9 s High 11.7-14.[address] [facility] Comment on above: Performed By: #### L [id number] #### [facility] [address] [place], [address] Urinalysis, Completeon 11-09 EPI,SQUAMOUS 0-5 SEEN Normal 5-10 [facility] Comment on above: Order Comment: CLEAN CATCH Performed By: #### L [id number] #### [facility] [address] [place], [address] BACTERIA 0 SEEN Normal None Seen [facility] Comment on above: Order Comment: CLEAN CATCH Performed By: #### L [id number] #### [facility] [address] [place], [address] Mucus Ql (Urine sed) 0 SEEN Normal [facility] Comment on above: Order Comment: CLEAN CATCH Performed By: #### L [id number] #### [facility] [address] [place], [address] RBC 0 SEEN Normal 0-5 [facility] Comment on above: Order Comment: CLEAN CATCH Performed By: #### L [id number] #### [facility] [address] [place], [place], [id number] WBC 0 SEEN Normal 0-5 [facility] Comment on above: Order Comment: CLEAN CATCH Performed By: #### L [id number] #### [facility] [address] [place], [place], [id number] Thin prep Papanicolaou smear with manual screeningOrdered By: Eulogio Jiang on 03-28-2024 Thin prep Papanicolaou smear with manual screening 223 mg/dL 74-106 [facility] Comment on above: MANAGEMENT OF PATIEN T CARE PER NURSING PROTOCOL Absolute lymphocyte countOrd ered By: Eulogio Jiang on 03-27-2024 Lymphocytes Auto (Unsp spec) [#/Vol] 2.53 10*3/uL 0.83-4.51 [facility] Automated lymphocyte count a s percentage of total leukocytesOrdered By: Eulogio Jiang on 03-27-2024 Lymphocytes/100 WBC Auto (Unsp spec) 28.7 % 19-41 [facility] Basophil percentageOrdered B y: Eulogio Jiang on 03-27-2024 Basophils/100 WBC (Bld) 1.0 % 0-1 [facility] Chloride [Moles/Vol] 97 mmol/L 98-[address] [facility] Eosinophils/100 WBC (Bld) 3.9 % 0-5 [facility] Glucose [Mass/Vol] 242 mg/dL 74-106 [facility] Comment on above: Glucose result great er than or equal to 200 mg/dLsuggests DIABETES MELLITUS per A.D.A. criteria. Hemoglobin (Bld) [Mass/Vol] 11.3 g/dL 12.0-15.0 [facility] Monocytes/100 WBC (Bld) 4.8 % 0-10 [facility] Neutrophils (Bld) [#/Vol] 5.4 10*3/uL 2.0-7.7 [facility] Neutrophils/100 WBC (Bld) 61.1 % 47-70 [facility] Potassium [Moles/Vol] 3.6 mmol/L 3.5-5.1 [facility] Sodium [Moles/Vol] 138 mmol/L 136-145 [facility] WBC (Bld) [#/Vol] 8.8 10*3/uL 4.4-11.0 [facility] Determination of erythrocyte mean corpuscular volume (MCV)Ordered By: Eulogio Jiang on 03-27-2024 MCV (RBC) [Entitic vol] 91.5 fL 81-99 [facility] Erythrocyte distribution wid th ratioOrdered By: Eulogio Jiang on 03-27-2024 Erythrocyte distribution width (RBC) [Ratio] 13.7 % 11.6-14.6 [facility] Erythrocyte distribution wid th standard deviationOrdered By: Eulogio Jiang on 03-27-2024 Erythrocyte distribution width (RBC) [Entitic vol] 45.3 fL 35.1-43.9 [facility] Hematocrit Auto (Bld) [Volum e fraction]Ordered By: Eulgoio Jiang on 03-27-2024 Hematocrit (Bld) [Volume fraction] 35.7 % 37-47 [facility] Immature granulocytes/100 WB C Auto (Bld)Ordered By: Eulogio Jiang on 03-27-2024 Immature granulocytes/100 WBC (Bld) 0.500 % 0.0-0.9 [facility] Comment on above: IG% - Immature Granu locytes (promyelocytes, myelocytes and metamyelocytes) > 1% indicates that a LEFT SHIFT is Present. Laboratory - Chemistry and C hemistry - challengeOrdered By: Eulogio Jiang on 03-27-2024 CO2 [Moles/Vol] 35.0 mmol/L 21.0-32.0 [facility] Urea nitrogen/Creatinine [Mass ratio] 26.0 mg/mg 10-20 [facility] - Hematology and Cell countsOrdered By: Eulogio Jiang on 03-27-2024 MCH (RBC) [Entitic mass] 29.0 pg 27.0-32.0 [facility] MCHC (RBC) [Mass/Vol] 31.7 g/dL 32-36 [facility] Nucleated RBC/100 WBC (Bld) [Ratio] 0 % 0-5 [facility] Platelet mean volume (Bld) [Entitic vol] 10.5 fL 6.2-12.0 [facility] Platelets (Bld) [#/Vol] 226 10*3/uL 150-450 [facility] No Panel InformationOrdered By: Eulogio Jiang on 03-27-2024 Estimated Creatinine Clearance Calc 86.75 ml/min [facility] Estimated GFR (MDRD) Amer 58 mL/min >60 [facility] Comment on above: GFR Calc Estimated GFR (MDRD) Non-Af Amer 48 mL/min >60 [facility] Comment on above: Non- GFR Calc RBC Auto (Bld) [#/Vol]Ordere d By: Eulogio Jiang on 03-27-2024 RBC (Bld) [#/Vol] 3.90 10*6/uL 4.2-5.4 [facility] Serum or plasma calcium yunior urement (mass/volume)Ordered By: Eulogio Jiang on 03-27-2024 Calcium [Mass/Vol] 8.7 mg/dL 8.5-10.1 [facility] Serum or plasma creatinine m easurement (mass/volume)Ordered By: Eulogio Jiang on 03-27-2024 Creatinine [Mass/Vol] 1.27 mg/dL 0.55-1.02 [facility] Comment on above: The validity of the calculated GFR & GFRAA in patients over 70 years has not been determined. Clinical correlation is essential. Serum or plasma urea nitroge n measurement (mass/volume)Ordered By: Eulogio Jiang on 03-27-2024 Urea nitrogen [Mass/Vol] 33 mg/dL 7-18 [facility] Thin prep Papanicolaou smear with manual screeningOrdered By: Eulogio Jiang on 03-27-2024 Thin prep Papanicolaou smear with manual screening 6 5-15 [facility] Basophil percentageOrdered B y: Delmy Solorzano on 03-23-2024 Bilirubin [Mass/Vol] 0.20 mg/dL 0.20-1.[address] [facility] Comment on above: For patients on eltr ombopag therapy, use of Dimension [place] TBIL is not recommended. Chloride [Moles/Vol] 98 mmol/L 98-[address] [facility] Glucose [Mass/Vol] 251 mg/dL 74-106 [facility] Comment on above: Glucose result great er than or equal to 200 mg/dLsuggests DIABETES MELLITUS per A.D.A. criteria. Potassium [Moles/Vol] 3.7 mmol/L 3.5-5.1 [facility] Protein [Mass/Vol] 7.3 g/dL 6.4-8.2 [facility] Sodium [Moles/Vol] 138 mmol/L 136-145 [facility] Laboratory - Chemistry and C hemistry - challengeOrdered By: Delmy Solorzano on 03-23-2024 Albumin/Globulin [Mass ratio] 0.9 {ratio} 0.9-2.4 [facility] ALP [Catalytic activity/Vol] 71 U/L 45-117 [facility] ALT [Catalytic activity/Vol] 34 U/L 13-56 [facility] CO2 [Moles/Vol] 33.0 mmol/L 21.0-32.0 [facility] Globulin (S) [Mass/Vol] 3.9 g/dL 2.2-4.2 [facility] Urea nitrogen/Creatinine [Mass ratio] 24.1 mg/mg 10-20 [facility] No Panel InformationOrdered By: Delmy Solorzano on 03-23-2024 Estimated GFR (MDRD) Amer 90 mL/min >60 [facility] Comment on above: GFR Calc Estimated GFR (MDRD) Non-Af Amer 74 mL/min >60 [facility] Comment on above: Non- GFR Calc Serum or plasma calcium yunior urement (mass/volume)Ordered By: Delmy Solorzano on 03-23-2024 Calcium [Mass/Vol] 9.4 mg/dL 8.5-10.1 [facility] Serum or plasma creatinine m easurement (mass/volume)Ordered By: Delmy Solorzano on 03-23-2024 Creatinine [Mass/Vol] 0.87 mg/dL 0.55-1.02 [facility] Comment on above: The validity of the calculated GFR & GFRAA in patients over 70 years has not been determined. Clinical correlation is essential. Serum or plasma urea nitroge n measurement (mass/volume)Ordered By: Delmy Solorzano on 03-23-2024 Urea nitrogen [Mass/Vol] 21 mg/dL 7-18 [facility] Thin prep Papanicolaou smear with manual screeningOrdered By: Delmy Solorzano on 03-23-2024 Thin prep Papanicolaou smear with manual screening 3.4 g/dL 3.2-5.0 [facility] Thin prep Papanicolaou smear with manual screening 23 U/L 15-37 [facility] Thin prep Papanicolaou smear with manual screening 7 5-15 [facility] Absolute lymphocyte countOrd ered By: Eulogio Jiang on 01-14-2024 Lymphocytes Auto (Unsp spec) [#/Vol] 3.13 10*3/uL 0.83-4.51 [facility] Automated lymphocyte count a s percentage of total leukocytesOrdered By: Eulogio Jiang on 01-14-2024 Lymphocytes/100 WBC Auto (Unsp spec) 23.8 % 19-41 [facility] Basophil percentageOrdered B y: Eulogio Jiang on 01-14-2024 Basophils/100 WBC (Bld) 0.8 % 0-1 [facility] Chloride [Moles/Vol] 100 mmol/L 98-[address] [facility] Eosinophils/100 WBC (Bld) 2.1 % 0-5 [facility] Glucose [Mass/Vol] 232 mg/dL 74-106 [facility] Comment on above: Glucose result great er than or equal to 200 mg/dLsuggests DIABETES MELLITUS per A.D.A. criteria. Hemoglobin (Bld) [Mass/Vol] 11.2 g/dL 12.0-15.0 [facility] Monocytes/100 WBC (Bld) 3.6 % 0-10 [facility] Neutrophils (Bld) [#/Vol] 9.1 10*3/uL 2.0-7.7 [facility] Neutrophils/100 WBC (Bld) 68.8 % 47-70 [facility] Potassium [Moles/Vol] 3.7 mmol/L 3.5-5.1 [facility] Sodium [Moles/Vol] 140 mmol/L 136-145 [facility] WBC (Bld) [#/Vol] 13.2 10*3/uL 4.4-11.0 [facility] Determination of erythrocyte mean corpuscular volume (MCV)Ordered By: Eulogio Jiang on 01-14-2024 MCV (RBC) [Entitic vol] 89.2 fL 81-99 [facility] Erythrocyte distribution wid th ratioOrdered By: Eulogio Jiang on 01-14-2024 Erythrocyte distribution width (RBC) [Ratio] 14.7 % 11.6-14.6 [facility] Erythrocyte distribution wid th standard deviationOrdered By: Eulogio Jiang on 01-14-2024 Erythrocyte distribution width (RBC) [Entitic vol] 47.5 fL 35.1-43.9 [facility] Hematocrit Auto (Bld) [Volum e fraction]Ordered By: Eulogio Jiang on 01-14-2024 Hematocrit (Bld) [Volume fraction] 36.5 % 37-47 [facility] Immature granulocytes/100 WB C Auto (Bld)Ordered By: Eulogio Jiang on 01-14-2024 Immature granulocytes/100 WBC (Bld) 0.900 % 0.0-0.9 [facility] Comment on above: IG% - Immature Granu locytes (promyelocytes, myelocytes and metamyelocytes) > 1% indicates that a LEFT SHIFT is Present. Laboratory - Chemistry and C hemistry - challengeOrdered By: Eulogio Jiang on 01-14-2024 CO2 [Moles/Vol] 33.0 mmol/L 21.0-32.0 [facility] Natriuretic peptide B (Bld) [Mass/Vol] 3.8 pg/mL 0-100 [facility] Urea nitrogen/Creatinine [Mass ratio] 22.8 mg/mg 10-20 [facility] - Hematology and Cell countsOrdered By: Eulogio Jiang on 01-14-2024 MCH (RBC) [Entitic mass] 27.4 pg 27.0-32.0 [facility] MCHC (RBC) [Mass/Vol] 30.7 g/dL 32-36 [facility] Nucleated RBC/100 WBC (Bld) [Ratio] 0 % 0-5 [facility] Platelet mean volume (Bld) [Entitic vol] 10.3 fL 6.2-12.0 [facility] Platelets (Bld) [#/Vol] 317 10*3/uL 150-450 [facility] No Panel InformationOrdered By: Eulogio Jiang on 01-14-2024 Estimated Creatinine Clearance Calc 96.92 ml/min [facility] Estimated GFR (MDRD) Amer 66 mL/min >60 [facility] Comment on above: GFR Calc Estimated GFR (MDRD) Non-Af Amer 54 mL/min >60 [facility] Comment on above: Non- GFR Calc RBC Auto (Bld) [#/Vol]Ordere d By: Eulogio Jiang on 01-14-2024 RBC (Bld) [#/Vol] 4.09 10*6/uL 4.2-5.4 [facility] Serum or plasma calcium yunior urement (mass/volume)Ordered By: Eulogio Jiang on 01-14-2024 Calcium [Mass/Vol] 8.8 mg/dL 8.5-10.1 [facility] Serum or plasma creatinine m easurement (mass/volume)Ordered By: Eulogio Jiang on 01-14-2024 Creatinine [Mass/Vol] 1.14 mg/dL 0.55-1.02 [facility] Comment on above: The validity of the calculated GFR & GFRAA in patients over 70 years has not been determined. Clinical correlation is essential. Serum or plasma urea nitroge n measurement (mass/volume)Ordered By: Eulogio Jiang on 01-14-2024 Urea nitrogen [Mass/Vol] 26 mg/dL 7-18 [facility] Thin prep Papanicolaou smear with manual screeningOrdered By: Eulogio Jiang on 01-14-2024 Thin prep Papanicolaou smear with manual screening 7 5-15 [facility] Basophil percentageOrdered B y: Delmy Solorzano on 01-02-2024 Basophil percentage < 1.0 mg/dL 0.55-1.[address] [facility] No Panel InformationOrdered By: Delmy Solorzano on 01-02-2024 Bedside Estimated GFR (eGFR) > 60.0000 mL/min >60 [facility] Iron measurement (mass/mass) Ordered By: Delmy Solorzano on 09-25-2023 Iron (Unsp spec) [Mass/Mass] 40 ug/dL 50-170 [facility] - Chemistry and C hemistry - challengeOrdered By: Delmy Solorzano on 09-25-2023 Cobalamin (Vitamin B12) [Mass/Vol] 323 pg/mL 211-911 [facility] No Panel InformationOrdered By: Delmy Solorzano on 09-25-2023 Total Iron Binding Capacity 450 ug/dL 250-450 [facility] Serum or plasma ferritin zhang surement (mass/volume)Or[facility] By: [facility] on 09-25-2023 Ferritin [Mass/Vol] 41 ng/mL 8-252 [facility] Serum or plasma folate measu rement (mass/volume)Ordered By: [facility] on 09-25-2023 Folate [Mass/Vol] 16.80 ng/mL 3.1-55.4 [facility] Serum or plasma iron saturat ion measurement (mass fraction)Ordered By: [facility] on 09-25-2023 Iron saturation [Mass fraction] 8.9 % 15.0-55.0 [facility] Absolute lymphocyte countOrd ered By: [facility] on 09-18-2023 Lymphocytes Auto (Unsp spec) [#/Vol] 2.67 10*3/uL 0.83-4.51 [facility] Basophil percentageOrdered B y: [facility] on 09-18-2023 Basophils/100 WBC (Bld) 0.7 % 0-1 [facility] Bilirubin [Mass/Vol] 0.30 mg/dL 0.20-1.[address] [facility] Comment on above: For patients on eltr ombopag therapy, use of Dimension [place] TBIL is not recommended. Chloride [Moles/Vol] 95 mmol/L 98-[address] [facility] Cholesterol [Mass/Vol] 126 mg/dL <200 [facility] Comment on above: <200 mg/dL Desirable 200-240 mg/dL Borderline >240 mg/dL High Risk Eosinophils/100 WBC (Bld) 2.5 % 0-5 [facility] Glucose [Mass/Vol] 269 mg/dL 74-106 [facility] Comment on above: Glucose result great er than or equal to 200 mg/dLsuggests DIABETES MELLITUS per A.D.A. criteria. Neutrophils (Bld) [#/Vol] 8.7 10*3/uL 2.0-7.7 [facility] Neutrophils/100 WBC (Bld) 71.3 % 47-70 [facility] Potassium [Moles/Vol] 4.0 mmol/L 3.5-5.1 [facility] Protein [Mass/Vol] 7.8 g/dL 6.4-8.2 [facility] Sodium [Moles/Vol] 134 mmol/L 136-145 [facility] Triglyceride [Mass/Vol] 189 mg/dL <199 [facility] Comment on above: The drugs N-Acetylcy steine and Metamizole may falsely depress this assay.Serum Triglycerides Reference Interval Normal <150 mg/dL Borderline high 150 - 199 mg/dL High 200 - 499 mg/dL Very High > or = 500 mg/dL WBC (Bld) [#/Vol] 12.2 10*3/uL 4.4-11.0 [facility] Blood erythrocytes count (nu mber/volume)Ordered By: Delmy Solorzano on 09-18-2023 RBC (Bld) [#/Vol] 4.21 10*6/uL 4.2-5.4 [facility] Blood hemoglobin measurement (mass/volume)Ordered By: Delmy Solorzano on 09-18-2023 Hemoglobin (Bld) [Mass/Vol] 11.0 g/dL 12.0-15.0 [facility] Blood lymphocytes/100 leukoc ytesOrdered By: Delmy Solorzano on 09-18-2023 Lymphocytes/100 WBC (Bld) 21.9 % 19-41 [facility] Blood monocytes/100 leukocyt esOrdered By: Delmy Solorzano on 09-18-2023 Monocytes/100 WBC (Bld) 2.8 % 0-10 [facility] Blood platelet mean volumeOr dered By: Delmy Solorzano on 09-18-2023 Platelet mean volume (Bld) [Entitic vol] 10.6 fL 6.2-12.0 [facility] Determination of erythrocyte mean corpuscular volume (MCV)Ordered By: Delmy Solorzano on 09-18-2023 MCV (RBC) [Entitic vol] 87.4 fL 81-99 [facility] Hematocrit Auto (Bld) [Volum e fraction]Ordered By: Delmy Solorzano on 09-18-2023 Hematocrit (Bld) [Volume fraction] 36.8 % 37-47 [facility] - Chemistry and C hemistry - challengeOrdered By: Delmy Solorzano on 09-18-2023 ALP [Catalytic activity/Vol] 78 U/L 45-117 [facility] ALT [Catalytic activity/Vol] 27 U/L 13-56 [facility] CO2 [Moles/Vol] 34.0 mmol/L 21.0-32.0 [facility] Globulin (S) [Mass/Vol] 4.5 g/dL 2.2-4.2 [facility] Urea nitrogen/Creatinine [Mass ratio] 17.1 mg/mg 10-20 [facility] - Hematology and Cell countsOrdered By: [facility] on 09-18-2023 Erythrocyte distribution width (RBC) [Entitic vol] 45.4 fL 35.1-43.9 [facility] Erythrocyte distribution width (RBC) [Ratio] 14.2 % 11.6-14.6 [facility] Immature granulocytes/100 WBC (Bld) 0.800 % 0.0-0.9 [facility] Comment on above: IG% - Immature Granu locytes (promyelocytes, myelocytes and metamyelocytes) > 1% indicates that a LEFT SHIFT is Present. MCH (RBC) [Entitic mass] 26.1 pg 27.0-32.0 [facility] Nucleated RBC/100 WBC (Bld) [Ratio] 0 % 0-5 [facility] MCHC Auto (RBC) [Mass/Vol]Or dered By: Delmy Solorzano on 09-18-2023 MCHC (RBC) [Mass/Vol] 29.9 g/dL 32-36 [facility] No Panel InformationOrdered By: Delmy Solorzano on 09-18-2023 Estimated GFR (MDRD) Amer 97 mL/min >60 [facility] Comment on above: GFR Calc Estimated GFR (MDRD) Non-Af Amer 80 mL/min >60 [facility] Comment on above: Non- GFR Calc Thyroid Stimulating Hormone (TSH) 4.02 uIU/mL 0.358-3.74 [facility] Vitamin D 25-Hydroxy 28.3 ng/mL [facility] Comment on above: Vitamin D 25(OH) Sta tus Range Deficiency <20 ng/mL (50nmol/L) Insufficiency 20 - 30 ng/mL (50 - 75 nmol/L) Sufficiency 30 - 100 ng/mL (75 - 250 nmol/L) Toxicity >100 ng/mL (>250 nmol/L) Platelets bldOrdered By: Mary marcos Ramoske on 09-18-2023 Platelets (Bld) [#/Vol] 325 10*3/uL 150-450 [facility] Serum or plasma albumin yunior urement (mass/volume)Ordered By: Delmy Solorzano on 09-18-2023 Albumin [Mass/Vol] 3.3 g/dL 3.2-5.0 [facility] Serum or plasma albumin/glob ulin mass ratioOrdered By: Delmy Solorzano on 09-18-2023 Albumin/Globulin [Mass ratio] 0.7 {ratio} 0.9-2.4 [facility] Serum or plasma calcium yunior urement (mass/volume)Ordered By: Delmy Solorzano on 09-18-2023 Calcium [Mass/Vol] 9.3 mg/dL 8.5-10.1 [facility] Serum or plasma cholesterol in HDL measurement (mass/volume)Ordered By: Dlemy Solorzano on 09-18-2023 Cholesterol in HDL [Mass/Vol] 38 mg/dL >40 [facility] Comment on above: The drugs N-Acetylcy steine and Metamizole may falsely depress this assay. Reference Range HDL <40 mg/dL Low HDL Cholesterol HDL >or= 60 mg/dL High HDL Cholesterol Serum or plasma cholesterol in VLDL measurement (mass/volume)Ordered By: Delmy Solorzano on 09-18-2023 Cholesterol in VLDL [Mass/Vol] 38 mg/dL 5-40 [facility] Serum or plasma creatinine m easurement (mass/volume)Ordered By: Delmy Solorzano on 09-18-2023 Creatinine [Mass/Vol] 0.82 mg/dL 0.55-1.02 [facility] Comment on above: The validity of the calculated GFR & GFRAA in patients over 70 years has not been determined. Clinical correlation is essential. Serum or plasma low density lipoprotein (LDL) cholesterol measurement (mass/volume)Ordered By: Delmy Solorzano on 09-18-2023 Cholesterol in LDL [Mass/Vol] 50 mg/dL 0-130 [facility] Serum or plasma urea nitroge n measurement (mass/volume)[facility] 09-18-2023 Urea nitrogen [Mass/Vol] 14 mg/dL 7-18 [facility] Thin prep Papanicolaou smear with manual screeningOrdered By: [facility]23 Thin prep Papanicolaou smear with manual screening 16 U/L 15-37 [facility] Thin prep Papanicolaou smear with manual screening 5 5-15 [facility] Whole blood hemoglobin A1c/t otal hemoglobin ratio (mass fraction)Ordered By: [facility] on 09-18-2023 HbA1c (Bld) [Mass fraction] 9.6 % 3.8-5.6 [facility] Comment on above: Normal < 5.7 % Predi abetic 5.7 - 6.4 % Diabetic >or= 6.5 % Please note range changes. Absolute lymphocyte countOrd ered By: Liam Wilkes on 07-15-2023 Lymphocytes Auto (Unsp spec) [#/Vol] 2.35 10*3/uL 0.83-4.51 [facility] Basophil percentageOrdered B y: Liam Wilkes on 07-15-2023 Basophils/100 WBC (Bld) 0.8 % 0-1 [facility] Chloride [Moles/Vol] 100 mmol/L 98-[address] [facility] Eosinophils/100 WBC (Bld) 2.1 % 0-5 [facility] Glucose [Mass/Vol] 146 mg/dL 74-106 [facility] Comment on above: Fasting Glucose resu lt greater than or equal to 126 mg/dL suggests DIABETES MELLITUS per A.D.A. criteria. Neutrophils (Bld) [#/Vol] 7.4 10*3/uL 2.0-7.7 [facility] Neutrophils/100 WBC (Bld) 67.0 % 47-70 [facility] Potassium [Moles/Vol] 4.3 mmol/L 3.5-5.1 [facility] Sodium [Moles/Vol] 140 mmol/L 136-145 [facility] WBC (Bld) [#/Vol] 11.0 10*3/uL 4.4-11.0 [facility] Blood erythrocytes count (nu mber/volume)Ordered By: Liam Wilkes on 07-15-2023 RBC (Bld) [#/Vol] 3.74 10*6/uL 4.2-5.4 [facility] Blood hemoglobin measurement (mass/volume)Ordered By: Liam Wilkes on 07-15-2023 Hemoglobin (Bld) [Mass/Vol] 9.4 g/dL 12.0-15.0 [facility] Blood lymphocytes/100 leukoc ytesOrdered By: Liam Wilkes on 07-15-2023 Lymphocytes/100 WBC (Bld) 21.4 % 19-41 [facility] Blood monocytes/100 leukocyt esOrdered By: Liam Wilkes on 07-15-2023 Monocytes/100 WBC (Bld) 4.5 % 0-10 [facility] Blood platelet mean volumeOr dered By: Liam Wilkes on 07-15-2023 Platelet mean volume (Bld) [Entitic vol] 9.5 fL 6.2-12.0 [facility] Determination of erythrocyte mean corpuscular volume (MCV)Ordered By: Liam Wilkes on 07-15-2023 MCV (RBC) [Entitic vol] 90.1 fL 81-99 [facility] Glucose Glucometer (BldC) [M ass/Vol]Ordered By: Belem Aponte on 07-15-2023 Glucose [Mass/Vol] 167 mg/dL 74-106 [facility] Comment on above: MANAGEMENT OF PATIEN T CARE PER NURSING PROTOCOL Hematocrit Auto (Bld) [Volum e fraction]Ordered By: Liam Wilkes on 07-15-2023 Hematocrit (Bld) [Volume fraction] 33.7 % 37-47 [facility] - Chemistry and C hemistry - challengeOrdered By: Liam Wilkes on 07-15-2023 CO2 [Moles/Vol] 36.0 mmol/L 21.0-32.0 [facility] Urea nitrogen/Creatinine [Mass ratio] 21.9 mg/mg 10-20 [facility] - Hematology and Cell countsOrdered By: Liam Wilkes on 07-15-2023 Erythrocyte distribution width (RBC) [Entitic vol] 59.6 fL 35.1-43.9 [facility] Erythrocyte distribution width (RBC) [Ratio] 18.6 % 11.6-14.6 [facility] Immature granulocytes/100 WBC (Bld) 4.200 % 0.0-0.9 [facility] Comment on above: IG% - Immature Granu locytes (promyelocytes, myelocytes and metamyelocytes) > 1% indicates that a LEFT SHIFT is Present. MCH (RBC) [Entitic mass] 25.1 pg 27.0-32.0 [facility] Nucleated RBC/100 WBC (Bld) [Ratio] 0.4 % 0-5 [facility] MCHC Auto (RBC) [Mass/Vol]Or dered By: Liam Wilkes on 07-15-2023 MCHC (RBC) [Mass/Vol] 27.9 g/dL 32-36 [facility] Comment on above: Delta: 29.9 on 07/14-3 No Panel InformationOrdered By: Liam Wilkes on 07-15-2023 Estimated Creatinine Clearance Calc 68.75 ml/min [facility] Estimated GFR (MDRD) Amer 85 mL/min >60 [facility] Comment on above: GFR Calc Estimated GFR (MDRD) Non-Af Amer 70 mL/min >60 [facility] Comment on above: Non- GFR Calc Platelets bldOrdered By: Shay Wilkes on 07-15-2023 Platelets (Bld) [#/Vol] 355 10*3/uL 150-450 [facility] Serum or plasma calcium yunior urement (mass/volume)Ordered By: Liam Wilkes on 07-15-2023 Calcium [Mass/Vol] 9.3 mg/dL 8.5-10.1 [facility] Serum or plasma creatinine m easurement (mass/volume)Ordered By: Liam Wilkes on 07-15-2023 Creatinine [Mass/Vol] 0.92 mg/dL 0.55-1.02 [facility] Comment on above: The validity of the calculated GFR & GFRAA in patients over 70 years has not been determined. Clinical correlation is essential. Serum or plasma urea nitroge n measurement (mass/volume)Ordered By: Liam Wilkes on 07-15-2023 Urea nitrogen [Mass/Vol] 20 mg/dL 7-18 [facility] Thin prep Papanicolaou smear with manual screeningOrdered By: Liam Wilkes on 07-15-2023 Thin prep Papanicolaou smear with manual screening 4 5-15 [facility] Absolute lymphocyte countOrd ered By: Irina Quintero on 07-14-2023 Lymphocytes Auto (Unsp spec) [#/Vol] 1.91 10*3/uL 0.83-4.51 [facility] Basophil percentageOrdered B y: Irina Quintero on 07-14-2023 Basophils/100 WBC (Bld) 0.6 % 0-1 [facility] Chloride [Moles/Vol] 101 mmol/L 98-[address] [facility] Eosinophils/100 WBC (Bld) 1.8 % 0-5 [facility] Glucose [Mass/Vol] 223 mg/dL 74-106 [facility] Comment on above: Glucose result great er than or equal to 200 mg/dLsuggests DIABETES MELLITUS per A.D.A. criteria. Neutrophils (Bld) [#/Vol] 6.1 10*3/uL 2.0-7.7 [facility] Neutrophils/100 WBC (Bld) 67.8 % 47-70 [facility] Potassium [Moles/Vol] 4.4 mmol/L 3.5-5.1 [facility] Sodium [Moles/Vol] 140 mmol/L 136-145 [facility] WBC (Bld) [#/Vol] 8.9 10*3/uL 4.4-11.0 [facility] Blood erythrocytes count (nu mber/volume)Ordered By: Irina Quintero on 07-14-2023 RBC (Bld) [#/Vol] 3.47 10*6/uL 4.2-5.4 [facility] Blood hemoglobin measurement (mass/volume)Ordered By: Irina Quintero on 07-14-2023 Hemoglobin (Bld) [Mass/Vol] 9.2 g/dL 12.0-15.0 [facility] Blood lymphocytes/100 leukoc ytesOrdered By: Irina Quintero on 07-14-2023 Lymphocytes/100 WBC (Bld) 21.4 % 19-41 [facility] Blood monocytes/100 leukocyt esOrdered By: Irina Quintero on 07-14-2023 Monocytes/100 WBC (Bld) 4.5 % 0-10 [facility] Blood platelet mean volumeOr dered By: Irina Quintero on 07-14-2023 Platelet mean volume (Bld) [Entitic vol] 9.2 fL 6.2-12.0 [facility] Determination of erythrocyte mean corpuscular volume (MCV)Ordered By: Irina Quintero on 07-14-2023 MCV (RBC) [Entitic vol] 88.8 fL 81-99 [facility] Hematocrit Auto (Bld) [Volum e fraction]Ordered By: Irina Quintero on 07-14-2023 Hematocrit (Bld) [Volume fraction] 30.8 % 37-47 [facility] - Chemistry and C hemistry - challengeOrdered By: Irina Quintero on 07-14-2023 CO2 [Moles/Vol] 36.0 mmol/L 21.0-32.0 [facility] Natriuretic peptide B (Bld) [Mass/Vol] 40.4 pg/mL 0-100 [facility] Urea nitrogen/Creatinine [Mass ratio] 17.9 mg/mg 10-20 [facility] - Hematology and Cell countsOrdered By: Irina Quintero on 07-14-2023 Erythrocyte distribution width (RBC) [Entitic vol] 58.5 fL 35.1-43.9 [facility] Erythrocyte distribution width (RBC) [Ratio] 18.4 % 11.6-14.6 [facility] Immature granulocytes/100 WBC (Bld) 3.900 % 0.0-0.9 [facility] Comment on above: IG% - Immature Granu locytes (promyelocytes, myelocytes and metamyelocytes) > 1% indicates that a LEFT SHIFT is Present. MCH (RBC) [Entitic mass] 26.5 pg 27.0-32.0 [facility] Nucleated RBC/100 WBC (Bld) [Ratio] 0.2 % 0-5 [facility] MCHC Auto (RBC) [Mass/Vol]Or dered By: Irina Quintero on 07-14-2023 MCHC (RBC) [Mass/Vol] 29.9 g/dL 32-36 [facility] No Panel InformationOrdered By: Irina Quintero on 07-14-2023 Troponin I High Sensitivity 17 pg/mL 3.0-54.0 [facility] Comment on above: Please Note: New Laisha t Units and Gender Specific Reference Ranges. For more information see Policy Stat Procedure [place] High Sensitivity Troponin (TNIH) and attachments. Estimated Creatinine Clearance Calc 59.67 ml/min [facility] Estimated GFR (MDRD) Amer 72 mL/min >60 [facility] Comment on above: GFR Calc Estimated GFR (MDRD) Non-Af Amer 59 mL/min >60 [facility] Comment on above: Non- GFR Calc Platelets bldOrdered By: Kely Quintero on 07-14-2023 Platelets (Bld) [#/Vol] 317 10*3/uL 150-450 [facility] Serum or plasma calcium yunior urement (mass/volume)Ordered By: Irina Quintero on 07-14-2023 Calcium [Mass/Vol] 9.0 mg/dL 8.5-10.1 [facility] Serum or plasma creatinine m easurement (mass/volume)Ordered By: Irina Quintero on 07-14-2023 Creatinine [Mass/Vol] 1.06 mg/dL 0.55-1.02 [facility] Comment on above: The validity of the calculated GFR & GFRAA in patients over 70 years has not been determined. Clinical correlation is essential. Serum or plasma urea nitroge n measurement (mass/volume)Ordered By: Irina Quintero on 07-14-2023 Urea nitrogen [Mass/Vol] 19 mg/dL 7-18 [facility] Thin prep Papanicolaou smear with manual screeningOrdered By: Irina Quintero on 07-14-2023 Thin prep Papanicolaou smear with manual screening 3 5-15 [facility] Absolute lymphocyte countOrd ered By: Belem Aponte on 04-25-2023 Lymphocytes Auto (Unsp spec) [#/Vol] 0.92 10*3/uL 0.83-4.51 [facility] Basophil percentageOrdered B y: Belem Aponte on 04-25-2023 Basophil percentage 3.3 mg/dL 2.5-4.9 [facility] Basophils/100 WBC (Bld) 0.3 % 0-1 [facility] Chloride [Moles/Vol] 96 mmol/L 98-[address] [facility] Eosinophils/100 WBC (Bld) 0.0 % 0-5 [facility] Glucose [Mass/Vol] 301 mg/dL 74-106 [facility] Comment on above: Glucose result great er than or equal to 200 mg/dLsuggests DIABETES MELLITUS per A.D.A. criteria. Neutrophils (Bld) [#/Vol] 10.3 10*3/uL 2.0-7.7 [facility] Neutrophils/100 WBC (Bld) 89.0 % 47-70 [facility] Potassium [Moles/Vol] 4.3 mmol/L 3.5-5.1 [facility] Sodium [Moles/Vol] 137 mmol/L 136-145 [facility] WBC (Bld) [#/Vol] 11.6 10*3/uL 4.4-11.0 [facility] Blood erythrocytes count (nu mber/volume)Ordered By: Belem Aponte on 04-25-2023 RBC (Bld) [#/Vol] 3.78 10*6/uL 4.2-5.4 [facility] Blood hemoglobin measurement (mass/volume)Ordered By: Belem Aponte on 04-25-2023 Hemoglobin (Bld) [Mass/Vol] 9.5 g/dL 12.0-15.0 [facility] Blood lymphocytes/100 leukoc ytesOrdered By: Belem Aponte on 04-25-2023 Lymphocytes/100 WBC (Bld) 8.0 % 19-41 [facility] Blood monocytes/100 leukocyt esOrdered By: Belem Aponte on 04-25-2023 Monocytes/100 WBC (Bld) 2.2 % 0-10 [facility] Blood platelet mean volumeOr dered By: Belem Aponte on 04-25-2023 Platelet mean volume (Bld) [Entitic vol] 9.4 fL 6.2-12.0 [facility] Determination of erythrocyte mean corpuscular volume (MCV)Ordered By: Belem Aponte on 04-25-2023 MCV (RBC) [Entitic vol] 88.9 fL 81-99 [facility] Glucose Glucometer (BldC) [M ass/Vol]Ordered By: Belem Aponte on 04-25-2023 Glucose [Mass/Vol] 298 mg/dL 74-106 [facility] Comment on above: MANAGEMENT OF PATIEN T CARE PER NURSING PROTOCOL Hematocrit Auto (Bld) [Volum e fraction]Ordered By: Belem Aponte on 04-25-2023 Hematocrit (Bld) [Volume fraction] 33.6 % 37-47 [facility] - Chemistry and C hemistry - challengeOrdered By: Belem Aponte on 04-25-2023 CO2 [Moles/Vol] 37.0 mmol/L 21.0-32.0 [facility] Magnesium [Mass/Vol] 2.1 mg/dL 1.6-2.[address] [facility] Urea nitrogen/Creatinine [Mass ratio] 32.2 mg/mg 10-20 [facility] - Hematology and Cell countsOrdered By: Belem Aponte on 04-25-2023 Erythrocyte distribution width (RBC) [Entitic vol] 53.5 fL 35.1-43.9 [facility] Erythrocyte distribution width (RBC) [Ratio] 16.6 % 11.6-14.6 [facility] Immature granulocytes/100 WBC (Bld) 0.500 % 0.0-0.9 [facility] Comment on above: IG% - Immature Granu locytes (promyelocytes, myelocytes and metamyelocytes) > 1% indicates that a LEFT SHIFT is Present. MCH (RBC) [Entitic mass] 25.1 pg 27.0-32.0 [facility] Nucleated RBC/100 WBC (Bld) [Ratio] 0.2 % 0-5 [facility] MCHC Auto (RBC) [Mass/Vol]Or dered By: Belem Aponte on 04-25-2023 MCHC (RBC) [Mass/Vol] 28.3 g/dL 32-36 [facility] No Panel InformationOrdered By: Belem Aponte on 04-25-2023 Estimated Creatinine Clearance Calc 68.74 ml/min [facility] Estimated GFR (MDRD) Amer 83 mL/min >60 [facility] Comment on above: GFR Calc Estimated GFR (MDRD) Non-Af Amer 69 mL/min >60 [facility] Comment on above: Non- GFR Calc Platelets bldOrdered By: Vivian Aponte on 04-25-2023 Platelets (Bld) [#/Vol] 264 10*3/uL 150-450 [facility] Serum or plasma calcium yunior urement (mass/volume)Ordered By: Belem Aponte on 04-25-2023 Calcium [Mass/Vol] 8.9 mg/dL 8.5-10.1 [facility] Serum or plasma creatinine m easurement (mass/volume)Ordered By: Belem Aponte on 04-25-2023 Creatinine [Mass/Vol] 0.93 mg/dL 0.55-1.02 [facility] Comment on above: The validity of the calculated GFR & GFRAA in patients over 70 years has not been determined. Clinical correlation is essential. Serum or plasma urea nitroge n measurement (mass/volume)Ordered By: Belem Aponte on 04-25-2023 Urea nitrogen [Mass/Vol] 30 mg/dL 7-18 [facility] Thin prep Papanicolaou smear with manual screeningOrdered By: Belem Aponte on 04-25-2023 Thin prep Papanicolaou smear with manual screening 4 5-15 [facility] Bacteria identified Respirat ory culture Nom (Unsp spec)Ordered By: Belem Aponte on 04-24-2023 Respiratory Culture Meth. resistant Staph. aureus [facility] Basophil percentageOrdered B y: Deejay Ornelas on 04-24-2023 Lactate [Moles/Vol] 2.1 mmol/L 0.4-2.0 [facility] Comment on above: Critical Result(s) C alled at: 00:52:49 04/24/2023 by: Mahin LOJA RN (MS3) Results read back by same. Gram stain for investigation of transfusion reactionOrdered By: Belem Aponte on 04-24-2023 Microscopic observation Gram stain Nom (Unsp spec) [facility] Urine Legionella pneumophila antigen detectionOrdered By: Belem Aponte on 04-24-2023 L. pneumophila Ag Ql (U) [facility] - Chemistry and C hemistry - challengeOrdered By: Deejay Ornelas on 04-23-2023 Natriuretic peptide B (Bld) [Mass/Vol] 22.8 pg/mL 0-100 [facility] - Microbiology an d Antimicrobial susceptibilityOrdered By: Deejay Ornelas on 04-23-2023 Bacteria identified Cx Nom (Bld) No growth in 5 days. [facility] No Panel InformationOrdered By: Deejay Ornelas on 04-23-2023 Troponin I High Sensitivity 24 pg/mL 3.0-54.0 [facility] Comment on above: Please Note: New Laisha t Units and Gender Specific Reference Ranges. For more information see Policy Stat Procedure [place] High Sensitivity Troponin (TNIH) and attachments. Bacteria identified Anaer cx Nom (Unsp spec)Ordered By: Dr. Lange on 03-08-2023 Anaerobic culture Prevotella melaninogenica [facility] Anaerobic culture Anaerobic cocci [facility] No Panel InformationOrdered By: Dr. Kaiser on 03-07-2023 No growth in 5 days. [facility] Bacteria identified Cx Nom ( Wound)Ordered By: Dr. Lange on 03-06-2023 Routine wound culture Proteus mirabilis [facility] Routine wound culture Streptococcus grou p A [facility] Routine wound culture Corynebacterium amycolatum [facility] Routine wound culture Enterobacter cloacae complex [facility] Absolute lymphocyte countOrd ered By: Dr. Neville on 03-05-2023 Lymphocytes Auto (Unsp spec) [#/Vol] 2.12 10*3/uL 0.83-4.51 [facility] Basophil percentageOrdered B y: Dr. Neville on 03-05-2023 Basophil percentage 330 mg/dL 74-106 [facility] Basophil percentage 133 mmol/L 136-145 [facility] Basophil percentage 3.4 mmol/L 3.5-5.1 [facility] Basophil percentage 90 mmol/L 98-107 [facility] Basophils (Bld) [#/Vol] 11.1 10*3/uL 4.4-11.0 [facility] Basophils (Bld) [#/Vol] 8.3 10*3/uL 2.0-7.7 [facility] Basophils/100 WBC (Bld) 74.4 % 47-70 [facility] Basophils/100 WBC (Bld) 0.1 % 0-5 [facility] Basophils/100 WBC (Bld) 0.3 % 0-1 [facility] Blood erythrocytes count (nu mber/volume)Ordered By: Dr. Neville on 03-05-2023 RBC (Bld) [#/Vol] 3.66 10*6/uL 4.2-5.4 [facility] Blood hemoglobin measurement (mass/volume)Ordered By: Dr. Neville on 03-05-2023 Hemoglobin (Bld) [Mass/Vol] 9.4 g/dL 12.0-15.0 [facility] Blood lymphocytes/100 leukoc ytesOrdered By: Dr. Neville on 03-05-2023 Lymphocytes/100 WBC (Bld) 19.1 % 19-41 [facility] Blood monocytes/100 leukocyt esOrdered By: Dr. Neville on 03-05-2023 Monocytes/100 WBC (Bld) 5.6 % 0-10 [facility] Blood platelet mean volumeOr dered By: Dr. Neville on 03-05-2023 Platelet mean volume (Bld) [Entitic vol] 9.8 fL 6.2-12.0 [facility] Culture, urineOrdered By: Dr Susan Box on 03-05-2023 Bacteria identified Cx Nom (U) Culture exhibits no growth. [facility] Determination of erythrocyte mean corpuscular volume (MCV)Ordered By: Dr. Neville on 03-05-2023 MCV (RBC) [Entitic vol] 88.3 fL 81-99 [facility] Glucose Glucometer (BldC) [M ass/Vol]Ordered By: Dr. Neville on 03-05-2023 Glucose [Mass/Vol] 361 mg/dL 74-106 [facility] Hematocrit Auto (Bld) [Volum e fraction]Ordered By: Dr. Neville on 03-05-2023 Hematocrit (Bld) [Volume fraction] 32.3 % 37-47 [facility] MCHC Auto (RBC) [Mass/Vol]Or dered By: Dr. Neville on 03-05-2023 MCHC (RBC) [Mass/Vol] 29.1 g/dL 32-36 [facility] No Panel InformationOrdered By: Dr. Neville on 03-05-2023 25.7 pg 27.0-32.0 [facility] 16.5 % 11.6-14.6 [facility] 53.4 fl 35.1-43.9 [facility] 0.500 % 0.0-0.9 [facility] 0.4 % 0-5 [facility] 70 mL/min >60 [facility] 85 mL/min >60 [facility] 69.49 ml/min [facility] 31.5 RATIO 10-20 [facility] 39.0 mmol/L 21.0-32.0 [facility] Platelets bldOrdered By: Dr. Neville on 03-05-2023 Platelets (Bld) [#/Vol] 266 10*3/uL 150-450 [facility] Serum or plasma calcium yunior urement (mass/volume)Ordered By: Dr. Neville on 03-05-2023 Calcium [Mass/Vol] 9.0 mg/dL 8.5-10.1 [facility] Serum or plasma creatinine m easurement (mass/volume)Ordered By: Dr. Neville on 03-05-2023 Creatinine [Mass/Vol] 0.92 mg/dL 0.55-1.02 [facility] Serum or plasma urea nitroge n measurement (mass/volume)Ordered By: Dr. Neville on 03-05-2023 Urea nitrogen [Mass/Vol] 29 mg/dL 7-18 [facility] Thin prep Papanicolaou smear with manual screeningOrdered By: Dr. Neville on 03-05-2023 Thin prep Papanicolaou smear with manual screening 4 5-15 [facility] Basophil percentageOrdered B y: Dr. Lange on 03-03-2023 Basophil percentage 7.2 g/dL 6.4-8.2 [facility] Basophil percentage 0.30 mg/dL 0.20-1.00 [facility] Gram stain for investigation of transfusion reactionOrdered By: Dr. Lange on 03-03-2023 Microscopic observation Gram stain Nom (Unsp spec) [facility] - Microbiology an d Antimicrobial susceptibilityOrdered By: Dr. Box on 03-03-2023 Respiratory pathogens DNA and RNA 12b panel SURESH+probe (Unsp spec) [facility] No Panel InformationOrdered By: Dr. Lange on 03-03-2023 4.6 g/dL 2.2-4.2 [facility] 60 U/L 45-117 [facility] 20 U/L 13-56 [facility] 22 pg/mL 3.0-54.0 [facility] Serum or plasma albumin yunior urement (mass/volume)Ordered By: Dr. Lange on 03-03-2023 Albumin [Mass/Vol] 2.6 g/dL 3.2-5.0 [facility] Serum or plasma albumin/glob ulin mass ratioOrdered By: Dr. Lange on 03-03-2023 Albumin/Globulin [Mass ratio] 0.6 {ratio} 0.9-2.4 [facility] Thin prep Papanicolaou smear with manual screeningOrdered By: Dr. Lange on 03-03-2023 Thin prep Papanicolaou smear with manual screening 15 U/L 15-37 [facility] Vancomycin troughOrdered By: Dr. Lange on 03-03-2023 Vancomycin trough [Mass/Vol] 17.8 ug/mL 5.0-15.0 [facility] Assessment of wrist artery p atency prior to arterial punctureOrdered By: Dr. Lange on 03-02-2023 Arterial patency Wrist artery --pre arterial puncture Positive [facility] Base excessOrdered By: Dr. Alberto french on 03-02-2023 Base excess Calc (BldV) [Moles/Vol] 8 mmol/L -2-2 [facility] Basophil percentageOrdered B y: Dr. Lange on 03-02-2023 Basophil percentage 33.8 mmol/L 22-[address] [facility] Basophils/100 WBC (Bld) 89 % 95-99 [facility] Basophil percentageOrdered B y: Dr. Kaiser on 03-02-2023 Basophil percentage 0.9 mmol/L 0.4-2.0 [facility] Basophil percentageOrdered B y: Dr. Box on 03-02-2023 Basophil percentage 0 SEEN /hpf 0-[address] [facility] Bilirubin Test strip Ql (U)O rdered By: Dr. Box on 03-02-2023 Bilirubin Ql (U) Negative Negative [facility] CO2 (BldA) [Partial pressure ]Ordered By: Dr. Lange on 03-02-2023 CO2 (Bld) [Partial pressure] 64.4 mm[Hg] 35-45 [facility] COVID-19 virus antigen assay Ordered By: Dr. Box on 03-02-2023 SARS-CoV-2 (COVID-19) Ag IA.rapid Ql (Resp) Negative Not Detect [facility] HCO3 (BldA) [Moles/Vol]Order ed By: Dr. Kaiser on 03-02-2023 HCO3 (Bld) [Moles/Vol] 32 mmol/L 22-26 [facility] Ketones Test strip Ql (U)Ord ered By: Dr. Box on 03-02-2023 Ketones Ql (U) Negative Negative [facility] Mucus LM Ql (Urine sed)Order ed By: Dr. Box on 03-02-2023 Mucus Ql (Urine sed) 0 SEEN /hpf [facility] Nitrite Test strip Ql (U)Ord ered By: Dr. Box on 03-02-2023 Nitrite Ql (U) Negative Negative [facility] No Panel InformationOrdered By: Dr. Lange on 03-02-2023 ART [facility] [facility] BiPAP [facility] 22 [facility] 50 [facility] 8 [facility] 36 mmol/L [facility] BiLevel [facility] josseri [facility] Yes [facility] No Panel InformationOrdered By: Dr. Kaiser on 03-02-2023 67.1 mmHg 41-51 [facility] 6 mmol/L -1.0-3.5 [facility] 87 % 50-70 [facility] 34 mmol/L 23-33 [facility] 68.4 pg/mL 0-100 [facility] Oxygen (BldA) [Partial press ure]Ordered By: Dr. Lange on 03-02-2023 Oxygen (Bld) [Partial pressure] 64 mmHG 75-100 [facility] PO2 venousOrdered By: Dr. Celso morrow on 03-02-2023 Oxygen (BldV) [Partial pressure] 60 mm[Hg] 25-40 [facility] Protein Test strip Ql (U)Ord ered By: Dr. Box on 03-02-2023 Protein Ql (U) 30 mg/dl Negative [facility] Squamous epithelial cells de tection in urine sediment by light microscopyOrdered By: Dr. Box on 03-02-2023 Epithelial cells.squamous LM Ql (Urine sed) 0 SEEN /hpf 5-10 [facility] Urine blood detectionOrdered By: Dr. Box on 03-02-2023 RBC Ql (U) 10 /ul Negative [facility] RBC Ql (U) 0 SEEN /hpf 0-5 [facility] Urine clarityOrdered By: Dr. Box on 03-02-2023 Clarity (U) Clear Clear [facility] Urine color determinationOrd ered By: Dr. Box on 03-02-2023 Color (U) Yellow Yellow [facility] Urine glucose detectionOrder ed By: Dr. Box on 03-02-2023 Glucose Ql (U) 1000 mg/dl Normal [facility] Urine leukocyte esterase det ection by dipstickOrdered By: Dr. Box on 03-02-2023 Leukocyte esterase Test strip Ql (U) Negative Negative [facility] Urine pHOrdered By: Dr. Katharine rodriguez on 03-02-2023 pH (U) 6.0 [pH] 5.0 - 8.0 [facility] Urine sediment bacteria coun t by microscopy (number/high power field)Ordered By: Dr. Box on 03-02-2023 Bacteria LM.HPF (Urine sed) [#/Area] 0 /[HPF] None Seen [facility] Urine specific gravity measu rementOrdered By: Dr. Box on 03-02-2023 Specific gravity (U) [Rel density] 1.015 1.002-1.030 [facility] Urobilinogen Auto test strip Ql (U)Ordered By: Dr. Box on 03-02-2023 Urobilinogen Ql (U) Normal mg/dl Normal [facility] pH measurementOrdered By: Dr Susan Lange on 03-02-2023 pH (Unsp spec) 7.33 [pH] 7.35-7.45 [facility] pH measurementOrdered By: Dr Susan Kaiser on 03-02-2023 pH (Unsp spec) 7.29 [pH] 7.32-7.42 [facility] No Panel InformationOrdered By: Dr. Ornelas on 02-24-2023 No growth in 5 days. [facility] Basic metabolic 2000 panelon 02-20-2023 Anion gap [Moles/Vol] 8 mmol/L Low 9-18 [facility] Comment on above: Order Comment: Speci men Type: BLOOD SPECIMENOrdering Facility: [facility] Address: [address] [place] [address] Performed By: #### 2 4321-2 ####[facility] LABORATORYCLIA [id number] [place] [address] [place] Calcium [Mass/Vol] 8.9 mg/dL Normal 8.5-10.2 [facility] Comment on above: Order Comment: Speci men Type: BLOOD SPECIMENOrdering Facility: [facility] Address: [address] [place] [address] Performed By: #### 2 4321-2 ####[facility] LABORATORYCLIA [id number] [place] [address] [place] Chloride [Moles/Vol] 99 mmol/L Normal 97-105 [facility] Comment on above: Order Comment: Speci men Type: BLOOD SPECIMENOrdering Facility: [facility] Address: [address] [place] [address] Performed By: #### 2 4321-2 ####[facility] LABORATORYCLIA [id number] [place] [address] [place] CO2 [Moles/Vol] 30 mmol/L Normal 22-30 [facility] Comment on above: Order Comment: Speci men Type: BLOOD SPECIMENOrdering Facility: [facility] Address: [address] [place] [address] Performed By: #### 2 4321-2 ####[facility]ITAL[facility] [id number] [address] STATES OF [facility] Creatinine [Mass/Vol] 0.59 mg/dL Normal 0.58-0.96 [facility] Comment on above: Order Comment: Roberto dahiana Type: BLOOD SPECIMENOrdering Facility: [facility] Address: [address] [place] [address] Performed By: #### 2 4321-2 ####[facility] LABORATORYIA [id number] [address] ESTIMATED GLOMERULAR FILTRATION RATE 113 mL/min/1.73m??? Normal >=60 [facility] Comment on above: Order Comment: Roberto talbot Type: BLOOD SPECIMENOrdering Facility: [facility] Address: [address] [place] [address] Result Comment: Gayle mated Glomerular Filtration Rate (eGFR) is calculated using the 2020 CKD-EPI creatinine equation. This equation utilizes serum creatinine, sex, and age as parameters. The creatinine assay has traceable calibration to isotope dilution-mass spectrometry. Refer to KDIGO guidelines for clinical interpretation. In patients with unstable renal function, e.g. those with acute kidney injury, the eGFR may not accurately reflect actual GFR. Performed By: #### 2 4321-2 ####[facility] CENTERIA [id number] [address] Glucose [Mass/Vol] 127 mg/dL High 74-99 [facility] Comment on above: Order Comment: Roberto dahiana Type: BLOOD SPECIMENOrdering Facility: [facility] Address: [address] [place] [address] Result Comment: The [place] Diabetes [employer] (ADA) provides guidance for cutoff values for fasting glucose and random glucose. The ADA defines fasting as no caloric intake for at least 8 hours. Fasting plasma glucose results between 100 to 125 mg/dL indicate increased risk for diabetes (prediabetes).Fasting plasma glucose results greater than or equal to 126 mg/dL meet the criteria for diagnosis of diabetes. In the absence of unequivocal hyperglycemia, results should be confirmed by repeat testing. In a patient with classic symptoms of hyperglycemia or hyperglycemic crisis, random plasma glucose results greater than or equal to 200 mg/dL meet the criteria for diagnosis of diabetes.Reference: Standards of Medical Care in Diabetes 2016, [place] [employer]. Diabetes Care. 2016.39(Suppl 1). Performed By: #### 2 4321-2 ####[facility] LABORATORYCLIA [id number] [address] STATES OF [facility] Potassium [Moles/Vol] 4.3 mmol/L Normal 3.7-5.1 [facility] Comment on above: Order Comment: Speci men Type: BLOOD SPECIMENOrdering Facility: [facility] Address: [address] [address] Performed By: #### 2 4321-2 ####[facility] LABORATORYCLIA [id number] [address] STATES [facility] Sodium [Moles/Vol] 137 mmol/L Normal 136-144 [facility] Comment on above: Order Comment: Speci men Type: BLOOD SPECIMENOrdering Facility: [facility] Address: [address] [address] Performed By: #### 2 4321-2 ####[facility] LABORATORYCLIA [id number] [address] STATES [facility] Urea nitrogen [Mass/Vol] 8 mg/dL Normal 7-21 [facility] Comment on above: Order Comment: Speci men Type: BLOOD SPECIMENOrdering Facility: [facility] Address: [address] [address] Performed By: #### 2 4321-2 ####[facility] LABORATORYCLIA [id number] [address] [place] CASE MANAGEMon 02-20-2023 CASE MANAGEM Normal [facility] CBC panel Auto (Bld)on 02-20 Erythrocyte distribution width (RBC) [Ratio] 16.0 % High 11.5-15.0 [facility] Comment on above: Order Comment: Speci men Type: BLOOD SPECIMENOrdering Facility: [facility] Address: [address] [address] Performed By: #### 5 8410-2 ####[facility]ORATORYCLIA [id number] [address] Hematocrit (Bld) [Volume fraction] 31.3 % Low 36.0-46.0 [facility] Comment on above: Order Comment: Speci men Type: BLOOD SPECIMENOrdering Facility: [facility] Address: [address] [place] [address] Performed By: #### 5 8410-2 ####[facility]ORATORYCLIA [id number] [address] OF [facility] Hemoglobin (Bld) [Mass/Vol] 8.8 g/dL Low 11.5-15.5 [facility] Comment on above: Order Comment: Speci men Type: BLOOD SPECIMENOrdering Facility: [facility] Address: [address] [place] [address] Performed By: #### 5 8410-2 ####[facility]ATORYCLIA [id number] [address] MCH (RBC) [Entitic mass] 25.8 pg Low 26.0-34.0 [facility] Comment on above: Order Comment: Speci men Type: BLOOD SPECIMENOrdering Facility: [facility] Address: [address] [place] [address] Performed By: #### 5 8410-2 ####[facility]ORATORYCLIA [id number] [address] [place] MCHC (RBC) [Mass/Vol] 28.1 g/dL Low 30.5-36.0 [facility] Comment on above: Order Comment: Speci men Type: BLOOD SPECIMENOrdering Facility: [facility] Address: [address] [place] [address] Performed By: #### 5 8410-2 ####[facility]ATORYCLIA [id number] [address] [place] MCV (RBC) [Entitic vol] 91.8 fL Normal 80.0-100.0 [facility] Comment on above: Order Comment: Speci men Type: BLOOD SPECIMENOrdering Facility: [facility] Address: [address] [address] Performed By: #### 5 8410-2 ####[facility] LABORATORYCLIA [id number] [address] [place] Nucleated RBC (Bld) [#/Vol] 0.02 10*3/uL High <0.01 [facility] Comment on above: Order Comment: Speci men Type: BLOOD SPECIMENOrdering Facility: [facility] Address: [address] [address] Performed By: #### 5 8410-2 ####[facility]ORYCLIA [id number] [address] [place] Platelet mean volume (Bld) [Entitic vol] 9.8 fL Normal 9.0-12.7 [facility] Comment on above: Order Comment: Speci men Type: BLOOD SPECIMENOrdering Facility: [facility] Address: [address] [address] Performed By: #### 5 8410-2 ####[facility]ATORYCLIA [id number] [address] [place] Platelets (Bld) [#/Vol] 264 10*3/uL Normal 150-400 [facility] Comment on above: Order Comment: Speci men Type: BLOOD SPECIMENOrdering Facility: [facility] Address: [address] [address] Performed By: #### 5 8410-2 ####[facility]ORATORYCLIA [id number] [place] [address] [place] RBC (Bld) [#/Vol] 3.41 10*6/uL Low 3.90-5.20 [facility] Comment on above: Order Comment: Speci men Type: BLOOD SPECIMENOrdering Facility: [facility] Address: [address] [address] Performed By: #### 5 8410-2 ####[facility]ATORYCLIA [id number] [address] [place] WBC (Bld) [#/Vol] 9.61 10*3/uL Normal 3.70-11.00 [facility] Comment on above: Order Comment: Speci men Type: BLOOD SPECIMENOrdering Facility: [facility] Address: [address] [place] [address] Performed By: #### 5 8410-2 ####[facility]ATORYCLIA [id number] [address] [place] CNDSon 02-20-2023 CNDS Normal [facility] CONSULT PROGon 02-20-2023 CONSULT PROG Normal [facility] CONSULT PROG Normal [facility] CONSULT PROG Normal [facility] aPTT PPPon 02-20-2023 aPTT Coag (PPP) [Time] 45.5 s High 23.0-32.4 [facility] Comment on above: Order Comment: Speci men Type: BLOOD SPECIMENOrdering Facility: [facility] Address: [address] [place] [address] Performed By: #### 1 4979-9 ####[facility]ATORYCLIA [id number] [address] aPTT Coag (PPP) [Time] 39.7 s High 23.0-32.4 [facility] Comment on above: Order Comment: Speci men Type: BLOOD SPECIMENOrdering Facility: [facility] Address: [address] [place] [address] Performed By: #### 1 4979-9 ####[facility]ATORYCLIA [id number] [place] [address] [place] ALLIED HEALTHon 02-19-2023 ALLIED HEALTH Normal [facility] Basic metabolic 2000 panelon 02-19-2023 Anion gap [Moles/Vol] 7 mmol/L Low 9-18 [facility] Comment on above: Order Comment: Speci men Type: BLOOD SPECIMENOrdering Facility: [facility] Address: [address] [place] [address] Performed By: #### 2 4321-2 ####[facility]ATORYCLIA [id number] [address] [place] Calcium [Mass/Vol] 8.9 mg/dL Normal 8.5-10.2 [facility] Comment on above: Order Comment: Speci men Type: BLOOD SPECIMENOrdering Facility: [facility] Address: [address] [place] [address] Performed By: #### 2 4321-2 ####[facility]ATORYCLIA [id number] [address] [place] Chloride [Moles/Vol] 103 mmol/L Normal 97-105 [facility] Comment on above: Order Comment: Speci men Type: BLOOD SPECIMENOrdering Facility: [facility] Address: [address] [place] [address] Performed By: #### 2 4321-2 ####[facility]ORATORYCLIA [id number] [address] [place] CO2 [Moles/Vol] 30 mmol/L Normal 22-30 [facility] Comment on above: Order Comment: Speci men Type: BLOOD SPECIMENOrdering Facility: [facility] Address: [address] [place] [address] Performed By: #### 2 4321-2 ####[facility]ORATORYCLIA [id number] [address] [place] Creatinine [Mass/Vol] 0.65 mg/dL Normal 0.58-0.96 [facility] Comment on above: Order Comment: Speci men Type: BLOOD SPECIMENOrdering Facility: [facility] Address: [address] [place] [address] Performed By: #### 2 4321-2 ####[facility]ORATORYCLIA [id number] [address] [place] ESTIMATED GLOMERULAR FILTRATION RATE 111 mL/min/1.73m??? Normal >=60 [facility] Comment on above: Order Comment: Speci men Type: BLOOD SPECIMENOrdering Facility: [facility] Address: [address] [place], [place] [id number] Result Comment: Gayle mated Glomerular Filtration Rate (eGFR) is calculated using the 2020 CKD-EPI creatinine equation. This equation utilizes serum creatinine, sex, and age as parameters. The creatinine assay has traceable calibration to isotope dilution-mass spectrometry. Refer to KDIGO guidelines for clinical interpretation. In patients with unstable renal function, e.g. those with acute kidney injury, the eGFR may not accurately reflect actual GFR. Performed By: #### 2 4321-2 ####[facility]ORATORYCLIA [id number] [place] [address] [place] Glucose [Mass/Vol] 154 mg/dL High 74-99 [facility] Comment on above: Order Comment: Roberto talbot Type: BLOOD SPECIMENOrdering Facility: [facility] Address: [address] [place], [place] [phone] Result Comment: The [place] Diabetes [employer] (ADA) provides guidance for cutoff values for fasting glucose and random glucose. The ADA defines fasting as no caloric intake for at least 8 hours. Fasting plasma glucose results between 100 to 125 mg/dL indicate increased risk for diabetes (prediabetes).Fasting plasma glucose results greater than or equal to 126 mg/dL meet the criteria for diagnosis of diabetes. In the absence of unequivocal hyperglycemia, results should be confirmed by repeat testing. In a patient with classic symptoms of hyperglycemia or hyperglycemic crisis, random plasma glucose results greater than or equal to 200 mg/dL meet the criteria for diagnosis of diabetes.Reference: Standards of Medical Care in Diabetes 2016, [place] [employer]. Diabetes Care. 2016.39(Suppl 1). Performed By: #### 2 4321-2 ####[facility]ORATORYCLIA [id number] [place] [address] [place] Potassium [Moles/Vol] 4.5 mmol/L Normal 3.7-5.1 [facility] Comment on above: Order Comment: Roberto talbot Type: BLOOD SPECIMENOrdering Facility: [facility] Address: [address] [place] [id number] Performed By: #### 2 4321-2 ####[facility]ORATORYCLIA [id number] [address] [place] Sodium [Moles/Vol] 140 mmol/L Normal 136-144 [facility] Comment on above: Order Comment: Speci men Type: BLOOD SPECIMENOrdering Facility: [facility] Address: [address] [place] [address] Performed By: #### 2 4321-2 ####[facility]ORATORYCLIA [id number] [place] [address] [place] Urea nitrogen [Mass/Vol] 11 mg/dL Normal 7-21 [facility] Comment on above: Order Comment: Speci men Type: BLOOD SPECIMENOrdering Facility: [facility] Address: [address] [place] [address] Performed By: #### 2 4321-2 ####[facility]ORATORYCLIA [id number] [address] [place] CASE MGT INIT ASSESon 2022 CASE MGT INIT ASSES Normal [facility] CBC panel Auto (Bld)on 02-19 Erythrocyte distribution width (RBC) [Ratio] 16.4 % High 11.5-15.0 [facility] Comment on above: Order Comment: Speci men Type: BLOOD SPECIMENOrdering Facility: [facility] Address: [address] [place] [address] Performed By: #### 5 8410-2 ####[facility]ORATORYCLIA [id number] [place] [address] [place] Hematocrit (Bld) [Volume fraction] 32.1 % Low 36.0-46.0 [facility] Comment on above: Order Comment: Speci men Type: BLOOD SPECIMENOrdering Facility: [facility] Address: [address] [place] [address] Performed By: #### 5 8410-2 ####[facility]ORATORYCLIA [id number] [place] [address] [place] Hemoglobin (Bld) [Mass/Vol] 9.3 g/dL Low 11.5-15.5 [facility] Comment on above: Order Comment: Speci men Type: BLOOD SPECIMENOrdering Facility: [facility] Address: [address] [place] [address] Performed By: #### 5 8410-2 ####[facility]ORATORYCLIA [id number] [address] MCH (RBC) [Entitic mass] 26.6 pg Normal 26.0-34.0 [facility] Comment on above: Order Comment: Speci men Type: BLOOD SPECIMENOrdering Facility: [facility] Address: [address] [place] [address] Performed By: #### 5 8410-2 ####[facility]ATORYCLIA [id number] [address] MCHC (RBC) [Mass/Vol] 29.0 g/dL Low 30.5-36.0 [facility] Comment on above: Order Comment: Speci men Type: BLOOD SPECIMENOrdering Facility: [facility] Address: [address] [place] [address] Performed By: #### 5 8410-2 ####[facility]ORATORYCLIA [id number] [address] MCV (RBC) [Entitic vol] 92.0 fL Normal 80.0-100.0 [facility] Comment on above: Order Comment: Speci men Type: BLOOD SPECIMENOrdering Facility: [facility] Address: [address] [place] [address] Performed By: #### 5 8410-2 ####[facility]ORYCLIA [id number] [address] Nucleated RBC (Bld) [#/Vol] 10*3/uL Normal <0.01 [facility] Comment on above: Order Comment: Speci men Type: BLOOD SPECIMENOrdering Facility: [facility] Address: [address] [place] [address] Performed By: #### 5 8410-2 ####[facility]ATORYCLIA [id number] [address] [place] Platelet mean volume (Bld) [Entitic vol] 9.8 fL Normal 9.0-12.7 [facility] Comment on above: Order Comment: Speci men Type: BLOOD SPECIMENOrdering Facility: [facility] Address: [address] [place] [address] Performed By: #### 5 8410-2 ####[facility]ATORYCLIA [id number] [address] [place] Platelets (Bld) [#/Vol] 282 10*3/uL Normal 150-400 [facility] Comment on above: Order Comment: Speci men Type: BLOOD SPECIMENOrdering Facility: [facility] Address: [address] [place] [address] Performed By: #### 5 8410-2 ####[facility]ATORYCLIA [id number] [address] [place] RBC (Bld) [#/Vol] 3.49 10*6/uL Low 3.90-5.20 [facility] Comment on above: Order Comment: Speci men Type: BLOOD SPECIMENOrdering Facility: [facility] Address: [address] [place] [address] Performed By: #### 5 8410-2 ####[facility]ATORYCLIA [id number] [address] [place] WBC (Bld) [#/Vol] 11.20 10*3/uL High 3.70-11.00 [facility] Comment on above: Order Comment: Speci men Type: BLOOD SPECIMENOrdering Facility: [facility] Address: [address] [place] [address] Performed By: #### 5 8410-2 ####[facility]ATORYCLIA [id number] [address] Erythrocyte distribution width (RBC) [Ratio] 16.4 % High 11.5-15.0 [facility] Comment on above: Order Comment: Speci men Type: BLOOD SPECIMENOrdering Facility: [facility] Address: [address] [address] Performed By: #### 5 8410-2 ####[facility]ORATORYCLIA [id number] [address] Hematocrit (Bld) [Volume fraction] 33.4 % Low 36.0-46.0 [facility] Comment on above: Order Comment: Speci men Type: BLOOD SPECIMENOrdering Facility: [facility] Address: [address] [place] [address] Performed By: #### 5 8410-2 ####[facility]ORATORYCLIA [id number] [address] OF [facility] Hemoglobin (Bld) [Mass/Vol] 9.3 g/dL Low 11.5-15.5 [facility] Comment on above: Order Comment: Speci men Type: BLOOD SPECIMENOrdering Facility: [facility] Address: [address] [place] [address] Performed By: #### 5 8410-2 ####[facility]ATORYCLIA [id number] [address] STATES OF [facility] MCH (RBC) [Entitic mass] 25.9 pg Low 26.0-34.0 [facility] Comment on above: Order Comment: Speci men Type: BLOOD SPECIMENOrdering Facility: [facility] Address: [address] [place] [address] Performed By: #### 5 8410-2 ####[facility]ATORYCLIA [id number] [address] [place] MCHC (RBC) [Mass/Vol] 27.8 g/dL Low 30.5-36.0 [facility] Comment on above: Order Comment: Speci men Type: BLOOD SPECIMENOrdering Facility: [facility] Address: [address] [place] [address] Performed By: #### 5 8410-2 ####[facility]ORATORYCLIA [id number] [place] [address] [place] MCV (RBC) [Entitic vol] 93.0 fL Normal 80.0-100.0 [facility] Comment on above: Order Comment: Speci men Type: BLOOD SPECIMENOrdering Facility: [facility] Address: [address] [address] Performed By: #### 5 8410-2 ####[facility]ATORYCLIA [id number] [address] [place] Nucleated RBC (Bld) [#/Vol] 10*3/uL Normal <0.01 [facility] Comment on above: Order Comment: Speci men Type: BLOOD SPECIMENOrdering Facility: [facility] Address: [address] [address] Performed By: #### 5 8410-2 ####[facility] LABORATORYCLIA [id number] [address] [place] Platelet mean volume (Bld) [Entitic vol] 9.8 fL Normal 9.0-12.7 [facility] Comment on above: Order Comment: Speci men Type: BLOOD SPECIMENOrdering Facility: [facility] Address: [address] [address] Performed By: #### 5 8410-2 ####[facility] LABORATORYCLIA [id number] [address] [place] Platelets (Bld) [#/Vol] 292 10*3/uL Normal 150-400 [facility] Comment on above: Order Comment: Speci men Type: BLOOD SPECIMENOrdering Facility: [facility] Address: [address] [address] Performed By: #### 5 8410-2 ####[facility] LABORATORYCLIA [id number] [place] [address] [place] RBC (Bld) [#/Vol] 3.59 10*6/uL Low 3.90-5.20 [facility] Comment on above: Order Comment: Speci men Type: BLOOD SPECIMENOrdering Facility: [facility] Address: [address] [address] Performed By: #### 5 8410-2 ####[facility] LABORATORYCLIA [id number] [place] [address] [facility] WBC (Bld) [#/Vol] 11.49 10*3/uL High 3.70-11.00 [facility] Comment on above: Order Comment: Speci men Type: BLOOD SPECIMENOrdering Facility: [facility] Address: [address] [id number] Performed By: #### 5 8410-2 ####[facility] LABORATORYCLIA [id number] [place] [address] [facility] CONSULTon 02-19-2023 CONSULT Normal [facility] CONSULT PROGon 02-19-2023 CONSULT PROG Normal [facility] Comprehensive metabolic 2000 panelon 02-19-2023 Albumin [Mass/Vol] 3.4 g/dL Low 3.9 - 4.9 g/dL [facility] ALP [Catalytic activity/Vol] 64 U/L 34 - 123 U/L [facility] ALT [Catalytic activity/Vol] 12 U/L 7 - 38 U/L [facility] Anion gap [Moles/Vol] 7 mmol/L Low 9 - 18 mmol/L [facility] AST [Catalytic activity/Vol] 12 U/L Low 13 - 35 U/L [facility] Bilirubin [Mass/Vol] 0.2 mg/dL 0.2 - 1.3 mg/dL [facility] Calcium [Mass/Vol] 8.8 mg/dL 8.5 - 10. 2 mg/dL [facility] Chloride [Moles/Vol] 100 mmol/L 97 - 105 mmol/L [facility] CO2 [Moles/Vol] 29 mmol/L 22 - 30 mmol/L [facility] Creatinine [Mass/Vol] 0.76 mg/dL 0.58 - 0.96 mg/dL [facility] Estimated Glomerular Filtration Rate 99 mL/min/1.73m >=60 mL/min/1.73m [facility] Glucose [Mass/Vol] 153 mg/dL High 74 - 99 mg/dL [facility] Potassium [Moles/Vol] 5.0 mmol/L 3.7 - 5.1 mmol/L [facility] Protein [Mass/Vol] 6.7 g/dL 6.3 - 8.0 g/dL [facility] Sodium [Moles/Vol] 136 mmol/L 136 - 144 mmol/L [facility] Urea nitrogen [Mass/Vol] 16 mg/dL 7 - 21 mg/d L [facility] ED NOTEon 02-19-2023 ED NOTE HNO ID: [id number] Author: Anita Jason RN Service: ? Author Type: Registered Nurse Type: ED Notes Filed: 02/19/2023 12:25 AM Note Text: Bed: 12-ED Expected date: Expected time: Means of arrival: Comments: [place] transfer Normal [facility] ED PROV NOTEon 02-19-2023 ED PROV NOTE Normal [facility] ED PROV NOTE Normal [facility] HISTORY PHYSICALon HISTORY PHYSICAL Normal [facility] LIPID PANEL, NONFASTINGon Cholesterol [Mass/Vol] 148 mg/dL <200 mg/dL [facility] HDL Cholesterol, Nonfasting 37 mg/dL Low >39 mg/dL [facility] LDL Cholesterol, Nonfasting 87 mg/dL <100 mg/dL [facility] LDL/HDL Ratio, Nonfasting 2.35 mg/dL <2.54 mg/dL [facility] Non HDL Cholesterol, Nonfasting 111 mg/dL <130 mg/dL [facility] Total Chol/HDL Ratio, Nonfasting 4.00 mg/dL <5.10 mg/dL [facility] Triglycerides, Nonfasting 122 mg/dL <150 mg/dL [facility] VLDL Cholesterol, Nonfasting 24 mg/dL <30 mg/dL [facility] NURSING PROGon 02-19-2023 NURSING PROG Normal [facility] PT panel Coag (PPP)on 2022 INR Coag (PPP) [Relative time] 1.1 {INR} Normal 0.9-1.3 [facility] Comment on above: Order Comment: Speci men Type: BLOOD SPECIMENOrdering Facility: [facility] Address: [address] [place] [id number] Result Comment: Erika min K Antagonist (VKA) Therapeutic Range: INR 2 to 3 (Target INR of 2.5)Note: For patients treated with VKA drugs, such as warfarin, the [place] [employer] 2012 Guideline recommends a therapeutic INR range of 2 to 3 (target INR of 2.5). This recommendation includes high-risk patients with antiphospholipid syndrome with previous arterial or venous thromboembolism, current-generation mechanical or bioprosthetic aortic heart valve replacement.Note: Patients with mechanical aortic valve replacement and additional risk factors for thromboembolic events (atrial fibrillation, previous thromboembolism, LV dysfunction, hypercoagulable conditions) or an older generation mechanical AVR (i.e., ball in-Cage) or any mechanical MVR should have a INR therapeutic range of 2.5 to 3.5 (target INR of 3).Gela GH, et al. Chest 2012, 141:7S-47SNishimura RA, et al. JAC 2017, 70: 252-289 Performed By: #### 3 4528-0, 12746-4 ####[facility] LABORATORYCLIA [id number] [address] [place] PT Coag (PPP) [Time] 11.4 s Normal 9.7-13.0 [facility] Comment on above: Order Comment: Speci men Type: BLOOD SPECIMENOrdering Facility: [facility] Address: [address] [address] Performed By: #### 3 4528-0, 33867-5 ####[facility]ATORYCLIA [id number] [address] STATES OF [facility] URINALYSIS, REFLEX MICROSCOP ICon 02-19-2023 Bacteria LM.HPF (Urine sed) [#/Area] Few Abnormal None Seen [facility] Comment on above: Order Comment: Speci men Type: URINE SPECIMENOrdering Facility: [facility] Address: [address] [address] Performed By: #### L [id number] ####[facility]ATORYCLIA [id number] [address] STATES [facility] Bilirubin Ql (U) Negative Normal Negative [facility] Comment on above: Order Comment: Speci men Type: URINE SPECIMENOrdering Facility: [facility] Address: [address] [address] Performed By: #### L [id number] ####[facility]ATORYCLIA [id number] [address] [place] Clarity (Unsp spec) Clear Normal Clear [facility] Comment on above: Order Comment: Speci men Type: URINE SPECIMENOrdering Facility: [facility] Address: [address] [place] [address] Performed By: #### L [id number] ####[facility]ORATORYCLIA [id number] [address] Color (U) Light Yellow Normal yellow [facility] Comment on above: Order Comment: Speci men Type: URINE SPECIMENOrdering Facility: [facility] Address: [address] [place] [address] Performed By: #### L [id number] ####[facility]ATORYCLIA [id number] [address] Glucose Test strip (U) [Mass/Vol] 4+ Abnormal Trace, Negative [facility] Comment on above: Order Comment: Speci men Type: URINE SPECIMENOrdering Facility: [facility] Address: [address] [place] [address] Performed By: #### L [id number] ####[facility]ATORYCLIA [id number] [address] [place] [facility] Hemoglobin Ql (U) 2+ Abnormal Negative, Trace [facility] Comment on above: Order Comment: Speci men Type: URINE SPECIMENOrdering Facility: [facility] Address: [address] [place] [address] Performed By: #### L [id number] ####[facility]ORYCLIA [id number] [address] Ketones Ql (U) Negative Normal Negative, Trace [facility] Comment on above: Order Comment: Speci men Type: URINE SPECIMENOrdering Facility: [facility] Address: [address] [place] [address] Performed By: #### L [id number] ####[facility]ATORYCLIA [id number] [address] Leukocyte esterase Test strip Ql (U) 500 Robert/uL Abnormal Negative, 25 Robert/uL [facility] Comment on above: Order Comment: Speci men Type: URINE SPECIMENOrdering Facility: [facility] Address: [address] [place] [address] Performed By: #### L [id number] ####[facility]ATORYCLIA [id number] [address] [place] [facility] Nitrite Ql (U) Negative Normal Negative [facility] Comment on above: Order Comment: Speci men Type: URINE SPECIMENOrdering Facility: [facility] Address: [address] [place] [address] Performed By: #### L [id number] ####[facility]ATORYCLIA [id number] [address] pH (U) 5.5 [pH] Normal 5.0-8.0 [facility] Comment on above: Order Comment: Speci men Type: URINE SPECIMENOrdering Facility: [facility] Address: [address] [place] [address] Performed By: #### L [id number] ####[facility]ATORYCLIA [id number] [address] Protein (U) [Mass/Vol] 1+ Abnormal Trace, Negati ve [facility] Comment on above: Order Comment: Speci men Type: URINE SPECIMENOrdering Facility: [facility] Address: [address] [place] [address] Performed By: #### L [id number] ####[facility]ATORYCLIA [id number] [address] RBC LM.HPF (Urine sed) [#/Area] /[HPF] Abnormal 0-3 /HPF [facility] Comment on above: Order Comment: Speci men Type: URINE SPECIMENOrdering Facility: [facility] Address: [address] [place] [address] Performed By: #### L [id number] ####[facility]ATORYCLIA [id number] [address] Specific gravity (U) [Rel density] 1.027 Normal 1.005-1.030 [facility] Comment on above: Order Comment: Speci men Type: URINE SPECIMENOrdering Facility: [facility] Address: [address] [place] [address] Performed By: #### L [id number] ####[facility]ATORYCLIA [id number] [address] Urobilinogen Ql (U) Normal Normal Negative [facility] Comment on above: Order Comment: Speci men Type: URINE SPECIMENOrdering Facility: [facility] Address: [address] [place] [address] Performed By: #### L [id number] ####[facility]ITALCL[facility] [id number] [address] WBC LM.HPF (Urine sed) [#/Area] /[HPF] Abnormal 0-5 /HPF [facility] Comment on above: Order Comment: Speci men Type: URINE SPECIMENOrdering Facility: [facility] Address: [address] [place] [address] Performed By: #### L [id number] ####[facility]ATORYCLIA [id number] [address] Yeast.budding LM.HPF (Urine sed) [#/Area] Few Abnormal None Seen [facility] Comment on above: Order Comment: Speci men Type: URINE SPECIMENOrdering Facility: [facility] Address: [address] [place] [address] Performed By: #### L [id number] ####[facility]ATORYCLIA [id number] [address] aPTT PPPon 02-19-2023 aPTT Coag (PPP) [Time] 37.2 s High 28.5-34.0 [facility] Comment on above: Order Comment: Speci men Type: BLOOD SPECIMENOrdering Facility: [facility] Address: [address] [address] Performed By: #### 1 4979-9 ####[facility]ATORYCLIA [id number] [address] aPTT Coag (PPP) [Time] 33.7 s High 23.0-32.4 [facility] Comment on above: Order Comment: Speci men Type: BLOOD SPECIMENOrdering Facility: [facility] Address: [address] [address] Performed By: #### 1 4979-9 ####[facility]ATORYCLIA [id number] [address] aPTT Coag (PPP) [Time] 28.4 s Normal 23.0-32.4 [facility] Comment on above: Order Comment: Speci men Type: BLOOD SPECIMENOrdering Facility: [facility] Address: [address] [address] Performed By: #### 3 4528-0, 06978-9 ####[facility]ATORYCLIA [id number] [address] Absolute lymphocyte countOrd ered By: Dr. Ornelas on 02-18-2023 Lymphocytes Auto (Unsp spec) [#/Vol] 2.32 10*3/uL 0.83-4.51 [facility] Basophil percentageOrdered B y: Dr. Ornelas on 02-18-2023 Basophil percentage 180 mg/dL 74-106 [facility] Basophil percentage 7.2 g/dL 6.4-8.2 [facility] Basophil percentage 0.20 mg/dL 0.20-1.00 [facility] Basophil percentage 137 mmol/L 136-145 [facility] Basophil percentage 4.5 mmol/L 3.5-5.1 [facility] Basophil percentage 103 mmol/L 98-107 [facility] Basophil percentage 1.6 mmol/L 0.4-2.0 [facility] Basophils (Bld) [#/Vol] 13.4 10*3/uL 4.4-11.0 [facility] Basophils (Bld) [#/Vol] 10.2 10*3/uL 2.0-7.7 [facility] Basophils/100 WBC (Bld) 0.6 % 0-1 [facility] Basophils/100 WBC (Bld) 75.7 % 47-70 [facility] Basophils/100 WBC (Bld) 1.3 % 0-5 [facility] Bilirubin [Mass/Vol] 0.20 mg/dL 0.20-1.[address] [facility] Comment on above: For patients on eltr ombopag therapy, use of Dimension [place] TBIL is not recommended. Chloride [Moles/Vol] 103 mmol/L 98-[address] [facility] Eosinophils/100 WBC (Bld) 1.3 % 0-5 [facility] Glucose [Mass/Vol] 180 mg/dL 74-106 [facility] Comment on above: Fasting Glucose resu lt greater than or equal to 126 mg/dL suggests DIABETES MELLITUS per A.D.A. criteria. Lactate [Moles/Vol] 1.6 mmol/L 0.4-2.0 [facility] Neutrophils (Bld) [#/Vol] 10.2 10*3/uL 2.0-7.7 [facility] Neutrophils/100 WBC (Bld) 75.7 % 47-70 [facility] Potassium [Moles/Vol] 4.5 mmol/L 3.5-5.1 [facility] Protein [Mass/Vol] 7.2 g/dL 6.4-8.2 [facility] Sodium [Moles/Vol] 137 mmol/L 136-145 [facility] WBC (Bld) [#/Vol] 13.4 10*3/uL 4.4-11.0 [facility] Beta hCG serum qualOrdered B y: Dr. Ornelas on 02-18-2023 Beta HCG ( test) Ql Negative [facility] Blood erythrocytes count (nu mber/volume)Ordered By: Dr. Ornelas on 02-18-2023 RBC (Bld) [#/Vol] 3.48 10*6/uL 4.2-5.4 [facility] Blood hemoglobin measurement (mass/volume)Ordered By: Dr. Ornelas on 02-18-2023 Hemoglobin (Bld) [Mass/Vol] 9.3 g/dL 12.0-15.0 [facility] Blood lymphocytes/100 leukoc ytesOrdered By: Dr. Ornelas on 02-18-2023 Lymphocytes/100 WBC (Bld) 17.3 % 19-41 [facility] Blood monocytes/100 leukocyt esOrdered By: Dr. Ornelas on 02-18-2023 Monocytes/100 WBC (Bld) 4.4 % 0-10 [facility] Blood platelet mean volumeOr dered By: Dr. Ornelas on 02-18-2023 Platelet mean volume (Bld) [Entitic vol] 9.7 fL 6.2-12.0 [facility] CBC W Auto Differential pane l (Bld)on 02-18-2023 Basophils (Bld) [#/Vol] 0.10 10*3/uL <0.11 k/uL [facility] Basophils/100 WBC (Bld) 0.8 % [facility] Differential cell count method Nom (Bld) Auto [facility] Eosinophils (Bld) [#/Vol] 0.18 10*3/uL <0.46 k/uL [facility] Eosinophils/100 WBC (Bld) 1.5 % [facility] Erythrocyte distribution width (RBC) [Ratio] 16.3 % High 11.5 - 15.0 % [facility] Hematocrit (Bld) [Volume fraction] 32.7 % Low 36.0 - 46.0 % [facility] Hemoglobin (Bld) [Mass/Vol] 9.4 g/dL Low 11.5 - 15.5 g/dL [facility] Immature granulocytes (Bld) [#/Vol] 0.11 10*3/uL High <0.10 k/uL [facility] Immature granulocytes/100 WBC (Bld) 0.9 % [facility] Lymphocytes (Bld) [#/Vol] 2.20 10*3/uL 1.00 - 4.00 k/uL [facility] Lymphocytes/100 WBC (Bld) 18.5 % [facility] MCH (RBC) [Entitic mass] 26.5 pg 26.0 - 34.0 pg [facility] MCHC (RBC) [Mass/Vol] 28.7 g/dL Low 30.5 - 36.0 g/dL [facility] MCV (RBC) [Entitic vol] 92.1 fL 80.0 - 100.0 fL [facility] Monocytes (Bld) [#/Vol] 0.52 10*3/uL <0.87 k/uL [facility] Monocytes/100 WBC (Bld) 4.4 % [facility] Neutrophils (Bld) [#/Vol] 8.78 10*3/uL High 1.45 - 7.50 k/uL [facility] Neutrophils/100 WBC (Bld) 73.9 % [facility] Nucleated RBC (Bld) [#/Vol] <0.01 k/uL [facility] Nucleated RBC/100 WBC (Bld) [Ratio] 0.0 /100 WBC [facility] Platelet mean volume (Bld) [Entitic vol] 10.7 fL 9.0 - 12.7 fL [facility] Platelets (Bld) [#/Vol] 302 10*3/uL 150 - 400 k /uL [facility] RBC (Bld) [#/Vol] 3.55 10*6/uL Low 3.90 - 5.2 0 m/uL [facility] WBC (Bld) [#/Vol] 11.89 10*3/uL High 3.70 - 11 .00 k/uL [facility] Determination of erythrocyte mean corpuscular volume (MCV)Ordered By: Dr. Ornelas on 02-18-2023 MCV (RBC) [Entitic vol] 93.7 fL 81-99 [facility] HbA1c (Bld)on 02-18-2023 Average glucose Estimated from glycated hemoglobin (Bld) [Mass/Vol] 194 mg/dL [facility] HbA1c (Bld) [Mass fraction] 8.4 % High 4.3 - 5.6 % [facility] Hematocrit Auto (Bld) [Volum e fraction]Ordered By: Dr. Ornelas on 02-18-2023 Hematocrit (Bld) [Volume fraction] 32.6 % 37-47 [facility] - Chemistry and C hemistry - challengeOrdered By: Dr. Ornelas on 02-18-2023 ALP [Catalytic activity/Vol] 68 U/L 45-117 [facility] ALT [Catalytic activity/Vol] 15 U/L 13-56 [facility] CO2 [Moles/Vol] 31.0 mmol/L 21.0-32.0 [facility] Globulin (S) [Mass/Vol] 4.6 g/dL 2.2-4.2 [facility] Urea nitrogen/Creatinine [Mass ratio] 18.4 mg/mg 10- [facility] - Hematology and Cell countsOrdered By: Dr. Ornelas on 02-18-2023 Erythrocyte distribution width (RBC) [Entitic vol] 56.1 fL 35.1-43.9 [facility] Erythrocyte distribution width (RBC) [Ratio] 16.3 % 11.6-14.6 [facility] Immature granulocytes/100 WBC (Bld) 0.700 % 0.0-0.9 [facility] Comment on above: IG% - Immature Granu locytes (promyelocytes, myelocytes and metamyelocytes) > 1% indicates that a LEFT SHIFT is Present. MCH (RBC) [Entitic mass] 26.7 pg 27.0-32.0 [facility] Nucleated RBC/100 WBC (Bld) [Ratio] 0 % 0-5 [facility] MCHC Auto (RBC) [Mass/Vol]Or dered By: Dr. Ornelsa on 02-18-2023 MCHC (RBC) [Mass/Vol] 28.5 g/dL 32-36 [facility] No Panel InformationOrdered By: Dr. Ornelas on 02-18-2023 Estimated Creatinine Clearance Calc 77.96 ml/min [facility] Estimated GFR (MDRD) Amer 97 mL/min >60 [facility] Comment on above: GFR Calc Estimated GFR (MDRD) Non-Af Amer 81 mL/min >60 [facility] Comment on above: Non- GFR Calc 26.7 pg 27.0-32.0 [facility] 16.3 % 11.6-14.6 [facility] 56.1 fl 35.1-43.9 [facility] 0.700 % 0.0-0.9 [facility] 0 % 0-5 [facility] 81 mL/min >60 [facility] 97 mL/min >60 [facility] 77.96 ml/min [facility] 18.4 RATIO 09-19 [facility] 4.6 g/dL 2.2-4.2 [facility] 68 U/L 45-117 [facility] 15 U/L 13-56 [facility] 31.0 mmol/L 21.0-32.0 [facility] Platelets bldOrdered By: Dr. Ornelas on 02-18-2023 Platelets (Bld) [#/Vol] 293 10*3/uL 150-450 [facility] Serum or plasma albumin yunior urement (mass/volume)Ordered By: Dr. Ornelas on 02-18-2023 Albumin [Mass/Vol] 2.6 g/dL 3.2-5.0 [facility] Serum or plasma albumin/glob ulin mass ratioOrdered By: Dr. Ornelas on 02-18-2023 Albumin/Globulin [Mass ratio] 0.6 {ratio} 0.9-2.4 [facility] Serum or plasma calcium yunior urement (mass/volume)Ordered By: Dr. Ornelas on 02-18-2023 Calcium [Mass/Vol] 8.3 mg/dL 8.5-10.1 [facility] Serum or plasma creatinine m easurement (mass/volume)Ordered By: Dr. Ornelas on 02-18-2023 Creatinine [Mass/Vol] 0.82 mg/dL 0.55-1.02 [facility] Comment on above: The validity of the calculated GFR & GFRAA in patients over 70 years has not been determined. Clinical correlation is essential. Serum or plasma urea nitroge n measurement (mass/volume)Ordered By: Dr. Ornelas on 02-18-2023 Urea nitrogen [Mass/Vol] 15 mg/dL 7-18 [facility] Thin prep Papanicolaou smear with manual screeningOrdered By: Dr. Ornelas on 02-18-2023 Thin prep Papanicolaou smear with manual screening 9 U/L 15-37 [facility] Thin prep Papanicolaou smear with manual screening 3 5-15 [facility] CNPNon 01-20-2023 CNPN Normal [facility] Basic metabolic 2000 panelon 01-16-2023 Anion gap [Moles/Vol] 12 mmol/L Normal 9-18 [facility] Comment on above: Order Comment: Speci men Type: BLOOD SPECIMENOrdering Facility: [facility] Address: [address] [address] Performed By: #### 2 4321-2 ####[facility] LABORATORYCLIA [id number] [address] [place] Calcium [Mass/Vol] 8.6 mg/dL Normal 8.5-10.2 [facility] Comment on above: Order Comment: Speci men Type: BLOOD SPECIMENOrdering Facility: [facility] Address: [address] [address] Performed By: #### 2 4321-2 ####[facility] LABORATORYCLIA [id number] [place] [address] [place] Chloride [Moles/Vol] 98 mmol/L Normal 97-105 [facility] Comment on above: Order Comment: Speci men Type: BLOOD SPECIMENOrdering Facility: [facility] Address: [address] [place] [address] Performed By: #### 2 4321-2 ####[facility]ATORYCLIA [id number] [place] [address] [place] CO2 [Moles/Vol] 27 mmol/L Normal 22-30 [facility] Comment on above: Order Comment: Speci men Type: BLOOD SPECIMENOrdering Facility: [facility] Address: [address] [place] [address] Performed By: #### 2 4321-2 ####[facility]ATORYCLIA [id number] [address] [place] Creatinine [Mass/Vol] 0.95 mg/dL Normal 0.58-0.96 [facility] Comment on above: Order Comment: Speci men Type: BLOOD SPECIMENOrdering Facility: [facility] Address: [address] [place] [address] Performed By: #### 2 4321-2 ####[facility]ATORYCLIA [id number] [address] [place] ESTIMATED GLOMERULAR FILTRATION RATE 75 mL/min/1.73m??? Normal >=60 [facility] Comment on above: Order Comment: Speci men Type: BLOOD SPECIMENOrdering Facility: [facility] Address: [address] [id number] Result Comment: Gayle mated Glomerular Filtration Rate (eGFR) is calculated using the 2020 CKD-EPI creatinine equation. This equation utilizes serum creatinine, sex, and age as parameters. The creatinine assay has traceable calibration to isotope dilution-mass spectrometry. Refer to KDIGO guidelines for clinical interpretation. In patients with unstable renal function, e.g. those with acute kidney injury, the eGFR may not accurately reflect actual GFR. Performed By: #### 2 4321-2 ####[facility] LAB[facility]ATORYCLIA [id number] [place] [address] [place] Glucose [Mass/Vol] 212 mg/dL High 74-99 [facility] Comment on above: Order Comment: Roberto talbot Type: BLOOD SPECIMENOrdering Facility: [facility] Address: [address] [place] [address] Result Comment: The [place] [employer] (ADA) provides guidance for cutoff values for fasting glucose and random glucose. The ADA defines fasting as no caloric intake for at least 8 hours. Fasting plasma glucose results between 100 to 125 mg/dL indicate increased risk for diabetes (prediabetes).Fasting plasma glucose results greater than or equal to 126 mg/dL meet the criteria for diagnosis of diabetes. In the absence of unequivocal hyperglycemia, results should be confirmed by repeat testing. In a patient with classic symptoms of hyperglycemia or hyperglycemic crisis, random plasma glucose results greater than or equal to 200 mg/dL meet the criteria for diagnosis of diabetes.Reference: Standards of Medical Care in Diabetes 2016, [place] [employer]. Diabetes Care. 2016.39(Suppl 1). Performed By: #### 2 4321-2 ####[facility] LABORATORYCLIA [id number] [place] [address] [place] Potassium [Moles/Vol] 3.8 mmol/L Normal 3.7-5.1 [facility] Comment on above: Order Comment: Roberto talbot Type: BLOOD SPECIMENOrdering Facility: [facility] Address: [address] [id number] Performed By: #### 2 4321-2 ####[facility] LABORATORYCLIA [id number] [address] [place] Sodium [Moles/Vol] 137 mmol/L Normal 136-144 [facility] Comment on above: Order Comment: Speci men Type: BLOOD SPECIMENOrdering Facility: [facility] Address: [address] [place] [address] Performed By: #### 2 4321-2 ####[facility] LABORATORYCLIA [id number] [place] [address] [place] Urea nitrogen [Mass/Vol] 12 mg/dL Normal 7-21 [facility] Comment on above: Order Comment: Speci men Type: BLOOD SPECIMENOrdering Facility: [facility] Address: [address] [place] [address] Performed By: #### 2 4321-2 ####[facility] LABORATORYCLIA [id number] [address] [facility] CASE MANAGEMon 01-16-2023 CASE MANAGEM Normal [facility] CBC panel Auto (Bld)on 01-16 Erythrocyte distribution width (RBC) [Ratio] 16.8 % High 11.5-15.0 [facility] Comment on above: Order Comment: Speci men Type: BLOOD SPECIMENOrdering Facility: [facility] Address: [address] [place] [address] Performed By: #### 5 8410-2 ####[facility] LABORATORYCLIA [id number] [place] [address] [place] Hematocrit (Bld) [Volume fraction] 33.3 % Low 36.0-46.0 [facility] Comment on above: Order Comment: Speci men Type: BLOOD SPECIMENOrdering Facility: [facility] Address: [address] [place] [address] Performed By: #### 5 8410-2 ####[facility]ATORYCLIA [id number] [place] [address] [place] Hemoglobin (Bld) [Mass/Vol] 9.7 g/dL Low 11.5-15.5 [facility] Comment on above: Order Comment: Speci men Type: BLOOD SPECIMENOrdering Facility: [facility] Address: [address] [place] [address] Performed By: #### 5 8410-2 ####[facility]ATORYCLIA [id number] [address] MCH (RBC) [Entitic mass] 27.6 pg Normal 26.0-34.0 [facility] Comment on above: Order Comment: Speci men Type: BLOOD SPECIMENOrdering Facility: [facility] Address: [address] [place] [address] Performed By: #### 5 8410-2 ####[facility]ATORYCLIA [id number] [address] [place] MCHC (RBC) [Mass/Vol] 29.1 g/dL Low 30.5-36.0 [facility] Comment on above: Order Comment: Speci men Type: BLOOD SPECIMENOrdering Facility: [facility] Address: [address] [place] [address] Performed By: #### 5 8410-2 ####[facility]ATORYCLIA [id number] [address] MCV (RBC) [Entitic vol] 94.9 fL Normal 80.0-100.0 [facility] Comment on above: Order Comment: Speci men Type: BLOOD SPECIMENOrdering Facility: [facility] Address: [address] [place] [address] Performed By: #### 5 8410-2 ####[facility]ATORYCLIA [id number] [address] Nucleated RBC (Bld) [#/Vol] 0.02 10*3/uL High <0.01 [facility] Comment on above: Order Comment: Speci men Type: BLOOD SPECIMENOrdering Facility: [facility] Address: [address] [place] [address] Performed By: #### 5 8410-2 ####[facility]ORYCLIA [id number] [address] [place] Platelet mean volume (Bld) [Entitic vol] 9.4 fL Normal 9.0-12.7 [facility] Comment on above: Order Comment: Speci men Type: BLOOD SPECIMENOrdering Facility: [facility] Address: [address] [place] [address] Performed By: #### 5 8410-2 ####[facility]ATORYCLIA [id number] [place] [address] [place] Platelets (Bld) [#/Vol] 234 10*3/uL Normal 150-400 [facility] Comment on above: Order Comment: Speci men Type: BLOOD SPECIMENOrdering Facility: [facility] Address: [address] [place] [address] Performed By: #### 5 8410-2 ####[facility]ATORYCLIA [id number] [place] [address] [place] RBC (Bld) [#/Vol] 3.51 10*6/uL Low 3.90-5.20 [facility] Comment on above: Order Comment: Speci men Type: BLOOD SPECIMENOrdering Facility: [facility] Address: [address] [place] [address] Performed By: #### 5 8410-2 ####[facility]ATORYCLIA [id number] [address] [place] WBC (Bld) [#/Vol] 11.70 10*3/uL High 3.70-11.00 [facility] Comment on above: Order Comment: Speci men Type: BLOOD SPECIMENOrdering Facility: [facility] Address: [address] [place] [address] Performed By: #### 5 8410-2 ####[facility]ORYCLIA [id number] [address] [place] CNDSon 01-16-2023 CNDS Normal [facility] NURSING PROGon 01-16-2023 NURSING PROG Normal [facility] Basic metabolic 2000 panelon 01-15-2023 Anion gap [Moles/Vol] 10 mmol/L Normal 9-18 [facility] Comment on above: Order Comment: Speci men Type: BLOOD SPECIMENOrdering Facility: [facility] Address: [address] [place] [address] Performed By: #### 2 4321-2 ####[facility]ORATORYCLIA [id number] [place] [address] [place] Calcium [Mass/Vol] 8.8 mg/dL Normal 8.5-10.2 [facility] Comment on above: Order Comment: Speci men Type: BLOOD SPECIMENOrdering Facility: [facility] Address: [address] [place] [address] Performed By: #### 2 4321-2 ####[facility] LABORATORYCLIA [id number] [place] [address] [place] Chloride [Moles/Vol] 99 mmol/L Normal 97-105 [facility] Comment on above: Order Comment: Speci men Type: BLOOD SPECIMENOrdering Facility: [facility] Address: [address] [place] [address] Performed By: #### 2 4321-2 ####[facility] LABORATORYCLIA [id number] [place] [address] [place] CO2 [Moles/Vol] 29 mmol/L Normal 22-30 [facility] Comment on above: Order Comment: Speci men Type: BLOOD SPECIMENOrdering Facility: [facility] Address: [address] [place] [address] Performed By: #### 2 4321-2 ####[facility]ORATORYCLIA [id number] [place] [address] [place] Creatinine [Mass/Vol] 0.85 mg/dL Normal 0.58-0.96 [facility] Comment on above: Order Comment: Speci men Type: BLOOD SPECIMENOrdering Facility: [facility] Address: [address] [place] [address] Performed By: #### 2 4321-2 ####[facility]ORATORYCLIA [id number] [place] [address] [place] ESTIMATED GLOMERULAR FILTRATION RATE 86 mL/min/1.73m??? Normal >=60 [facility] Comment on above: Order Comment: Roberto talbot Type: BLOOD SPECIMENOrdering Facility: [facility] Address: [address] [place] [address] Result Comment: Gayle mated Glomerular Filtration Rate (eGFR) is calculated using the 2020 CKD-EPI creatinine equation. This equation utilizes serum creatinine, sex, and age as parameters. The creatinine assay has traceable calibration to isotope dilution-mass spectrometry. Refer to KDIGO guidelines for clinical interpretation. In patients with unstable renal function, e.g. those with acute kidney injury, the eGFR may not accurately reflect actual GFR. Performed By: #### 2 4321-2 ####[facility] CENTERIA [id number] [place] [address] [place] Glucose [Mass/Vol] 184 mg/dL High 74-99 [facility] Comment on above: Order Comment: Roberto talbot Type: BLOOD SPECIMENOrdering Facility: [facility] Address: [address] [place] [address] Result Comment: The [place] Diabetes [employer] (ADA) provides guidance for cutoff values for fasting glucose and random glucose. The ADA defines fasting as no caloric intake for at least 8 hours. Fasting plasma glucose results between 100 to 125 mg/dL indicate increased risk for diabetes (prediabetes).Fasting plasma glucose results greater than or equal to 126 mg/dL meet the criteria for diagnosis of diabetes. In the absence of unequivocal hyperglycemia, results should be confirmed by repeat testing. In a patient with classic symptoms of hyperglycemia or hyperglycemic crisis, random plasma glucose results greater than or equal to 200 mg/dL meet the criteria for diagnosis of diabetes.Reference: Standards of Medical Care in Diabetes 2016, [place] [employer]. Diabetes Care. 2016.39(Suppl 1). Performed By: #### 2 4321-2 ####[facility] CENTERIA [id number] [place] [address] [place] Potassium [Moles/Vol] 3.7 mmol/L Normal 3.7-5.1 [facility] Comment on above: Order Comment: Speci men Type: BLOOD SPECIMENOrdering Facility: [facility] Address: [address] [address] Performed By: #### 2 4321-2 ####[facility]ORYCLIA [id number] [address] [place] Sodium [Moles/Vol] 138 mmol/L Normal 136-144 [facility] Comment on above: Order Comment: Speci men Type: BLOOD SPECIMENOrdering Facility: [facility] Address: [address] [address] Performed By: #### 2 4321-2 ####[facility]ATORYCLIA [id number] [address] [place] Urea nitrogen [Mass/Vol] 8 mg/dL Normal 7-21 [facility] Comment on above: Order Comment: Speci men Type: BLOOD SPECIMENOrdering Facility: [facility] Address: [address] [place] [address] Performed By: #### 2 4321-2 ####[facility]ATORYCLIA [id number] [address] [place] C trach+GC DNA Ur Ql SURESH+pro beon 01-15-2023 C. trachomatis+N. gonorrhoeae DNA SURESH+probe Ql (U) GC AMPLIFICATION: Negative for Neisseria gonorrhoeae by amplification CHLAMYDIA AMPLIFICATION: Negative for Chlamydia trachomatis by amplification Normal [facility] Comment on above: Performed By: #### 4 4806-8 ####[facility]ORYCLIA [id number] [address] [place] CASE MGT INIT ASSESon 2022 CASE MGT INIT ASSES Normal [facility] CBC panel Auto (Bld)on 01-15 Erythrocyte distribution width (RBC) [Ratio] 16.7 % High 11.5-15.0 [facility] Comment on above: Order Comment: Speci men Type: BLOOD SPECIMENOrdering Facility: [facility] Address: [address] [address] Performed By: #### 5 8410-2 ####[facility]ATORYCLIA [id number] [address] Hematocrit (Bld) [Volume fraction] 35.8 % Low 36.0-46.0 [facility] Comment on above: Order Comment: Speci men Type: BLOOD SPECIMENOrdering Facility: [facility] Address: [address] [place] [address] Performed By: #### 5 8410-2 ####[facility]ATORYCLIA [id number] [address] OF [facility] Hemoglobin (Bld) [Mass/Vol] 10.3 g/dL Low 11.5-15.5 [facility] Comment on above: Order Comment: Speci men Type: BLOOD SPECIMENOrdering Facility: [facility] Address: [address] [place] [address] Performed By: #### 5 8410-2 ####[facility]ORYCLIA [id number] [address] MCH (RBC) [Entitic mass] 27.4 pg Normal 26.0-34.0 [facility] Comment on above: Order Comment: Speci men Type: BLOOD SPECIMENOrdering Facility: [facility] Address: [address] [place] [address] Performed By: #### 5 8410-2 ####[facility]ORYCLIA [id number] [address] [place] MCHC (RBC) [Mass/Vol] 28.8 g/dL Low 30.5-36.0 [facility] Comment on above: Order Comment: Speci men Type: BLOOD SPECIMENOrdering Facility: [facility] Address: [address] [place] [address] Performed By: #### 5 8410-2 ####[facility]ORYCLIA [id number] [address] MCV (RBC) [Entitic vol] 95.2 fL Normal 80.0-100.0 [facility] Comment on above: Order Comment: Speci men Type: BLOOD SPECIMENOrdering Facility: [facility] Address: [address] [address] Performed By: #### 5 8410-2 ####[facility]ORYCLIA [id number] [address] [place] Nucleated RBC (Bld) [#/Vol] 0.02 10*3/uL High <0.01 [facility] Comment on above: Order Comment: Speci men Type: BLOOD SPECIMENOrdering Facility: [facility] Address: [address] [address] Performed By: #### 5 8410-2 ####[facility]ATORYCLIA [id number] [place] [address] [place] Platelet mean volume (Bld) [Entitic vol] 9.4 fL Normal 9.0-12.7 [facility] Comment on above: Order Comment: Speci men Type: BLOOD SPECIMENOrdering Facility: [facility] Address: [address] [address] Performed By: #### 5 8410-2 ####[facility]ATORYCLIA [id number] [place] [address] [place] Platelets (Bld) [#/Vol] 265 10*3/uL Normal 150-400 [facility] Comment on above: Order Comment: Speci men Type: BLOOD SPECIMENOrdering Facility: [facility] Address: [address] [address] Performed By: #### 5 8410-2 ####[facility]ATORYCLIA [id number] [place] [address] [place] RBC (Bld) [#/Vol] 3.76 10*6/uL Low 3.90-5.20 [facility] Comment on above: Order Comment: Speci men Type: BLOOD SPECIMENOrdering Facility: [facility] Address: [address] [place] [address] Performed By: #### 5 8410-2 ####[facility]ATORYCLIA [id number] [place] [address] [place] WBC (Bld) [#/Vol] 11.55 10*3/uL High 3.70-11.00 [facility] Comment on above: Order Comment: Speci men Type: BLOOD SPECIMENOrdering Facility: [facility] Address: [address] [place] [address] Performed By: #### 5 8410-2 ####[facility]ATORYCLIA [id number] [address] OF [facility] CONSULT PROGon 01-15-2023 CONSULT PROG Normal [facility] HCG ( test) Ql (U)o n 01-15-2023 Specific gravity (U) [Rel density] 1.014 Normal 1.006-1.029 [facility] Comment on above: Order Comment: Speci men Type: URINE SPECIMENOrdering Facility: [facility] Address: [address] [place] [address] Result Comment: If s pecific gravity is <1.005 then results may be falsely negative. Serum HCG is recommended. Performed By: #### 2 106-3 ####[facility]ATORYCLIA [id number] [address] HCG Preg Ur Qlon 01-15-2023 HCG ( test) Ql (U) Negative Normal Negative [facility] Comment on above: Order Comment: Speci men Type: URINE SPECIMENOrdering Facility: [facility] Address: [address] [place] [address] Result Comment: This test is intended to aid in the early detection of . Very dilute urine samples, as indicated by a low specific gravity, may not contain hr representative levels of hCG. This test detects intact hCG only. This test does not reliably detect hCG degradation products, including free-beta subunit and beta-core fragment. Therefore, this test may show reduced reactivity in urine after 8 weeks gestation. A number of conditions other than , including trophoblastic disease and certain non-trophoblastic neoplasms cause elevated levels of hCG. As with any assay employing mouse antibodies, the possibility exists for interference by human anti-mouse antibodies (HAMA) in the specimen. The test provides a presumptive diagnosis for . Performed By: #### 2 106-3 ####[facility]ATORYCLIA [id number] [address] T VAGINALIS AMPLIFICATIONon 01-15-2023 T. vaginalis DNA SURESH+probe Ql (Unsp spec) Negative Normal Negative for Trichomonas vaginalis by amplification [facility] Comment on above: Order Comment: Speci men Type: URINE SPECIMENOrdering Facility: [facility] Address: [address] [address] Performed By: #### T RVAMP ####[facility] LABCLIA [id number] [facility] [id number] [address] [place] ALLIED HEALTHon 01-14-2023 ALLIED HEALTH Normal [facility] ANES POSTPROC EVALon 023 ANES POSTPROC EVAL Normal [facility] ANES PRE-OPon 01-14-2023 ANES PRE-OP Normal [facility] BRIEF OP NOTon 01-14-2023 BRIEF OP NOT Normal [facility] Bacteria Wnd Culton 01-14-20 23 Bacteria identified Cx Nom (Wound) Abnormal [facility] Comment on above: Performed By: #### 6 462-6 ####[facility]ATORYCLIA [id number] [place] [address] [place] Basic metabolic 2000 panelon 01-14-2023 Anion gap [Moles/Vol] 10 mmol/L Normal 9-18 [facility] Comment on above: Order Comment: Speci men Type: BLOOD SPECIMENOrdering Facility: [facility] Address: [address] [address] Performed By: #### 2 4321-2 ####[facility]ATORYCLIA [id number] [place] [address] [place] Calcium [Mass/Vol] 8.9 mg/dL Normal 8.5-10.2 [facility] Comment on above: Order Comment: Speci men Type: BLOOD SPECIMENOrdering Facility: [facility] Address: [address] [address] Performed By: #### 2 4321-2 ####[facility]ORYCLIA [id number] [address] [place] Chloride [Moles/Vol] 98 mmol/L Normal 97-105 [facility] Comment on above: Order Comment: Speci men Type: BLOOD SPECIMENOrdering Facility: [facility] Address: [address] [place] [address] Performed By: #### 2 4321-2 ####[facility]ORYCLIA [id number] [address] [place] CO2 [Moles/Vol] 28 mmol/L Normal 22-30 [facility] Comment on above: Order Comment: Speci men Type: BLOOD SPECIMENOrdering Facility: [facility] Address: [address] [place] [address] Performed By: #### 2 4321-2 ####[facility]ATORYCLIA [id number] [address] [facility] Creatinine [Mass/Vol] 0.82 mg/dL Normal 0.58-0.96 [facility] Comment on above: Order Comment: Speci men Type: BLOOD SPECIMENOrdering Facility: [facility] Address: [address] [place] [address] Performed By: #### 2 4321-2 ####[facility]ORYCLIA [id number] [address] ESTIMATED GLOMERULAR FILTRATION RATE 90 mL/min/1.73m??? Normal >=60 [facility] Comment on above: Order Comment: Speci men Type: BLOOD SPECIMENOrdering Facility: [facility] Address: [address] [place] [address] Result Comment: Gayle mated Glomerular Filtration Rate (eGFR) is calculated using the 2020 CKD-EPI creatinine equation. This equation utilizes serum creatinine, sex, and age as parameters. The creatinine assay has traceable calibration to isotope dilution-mass spectrometry. Refer to KDIGO guidelines for clinical interpretation. In patients with unstable renal function, e.g. those with acute kidney injury, the eGFR may not accurately reflect actual GFR. Performed By: #### 2 4321-2 ####[facility]ATORYCLIA [id number] [place] [address] [place] Glucose [Mass/Vol] 178 mg/dL High 74-99 [facility] Comment on above: Order Comment: Speci dahiana Type: BLOOD SPECIMENOrdering Facility: [facility] Address: [address] [place] [address] Result Comment: The [place] Diabetes Association (ADA) provides guidance for cutoff values for fasting glucose and random glucose. The ADA defines fasting as no caloric intake for at least 8 hours. Fasting plasma glucose results between 100 to 125 mg/dL indicate increased risk for diabetes (prediabetes).Fasting plasma glucose results greater than or equal to 126 mg/dL meet the criteria for diagnosis of diabetes. In the absence of unequivocal hyperglycemia, results should be confirmed by repeat testing. In a patient with classic symptoms of hyperglycemia or hyperglycemic crisis, random plasma glucose results greater than or equal to 200 mg/dL meet the criteria for diagnosis of diabetes.Reference: Standards of Medical Care in Diabetes 2016, [place] [employer]. Diabetes Care. 2016.39(Suppl 1). Performed By: #### 2 4321-2 ####[facility]ATORYCLIA [id number] [place] [address] [place] Potassium [Moles/Vol] 3.9 mmol/L Normal 3.7-5.1 [facility] Comment on above: Order Comment: Migdaliai dahiana Type: BLOOD SPECIMENOrdering Facility: [facility] Address: [address] [place] [address] Performed By: #### 2 4321-2 ####[facility]ATORYCLIA [id number] [place] [address] [place] Sodium [Moles/Vol] 136 mmol/L Normal 136-144 [facility] Comment on above: Order Comment: Speci men Type: BLOOD SPECIMENOrdering Facility: [facility] Address: [address] [place] [address] Performed By: #### 2 4321-2 ####[facility]ATORYCLIA [id number] [place] [address] Urea nitrogen [Mass/Vol] 11 mg/dL Normal 7-21 [facility] Comment on above: Order Comment: Speci men Type: BLOOD SPECIMENOrdering Facility: [facility] Address: [address] [place] [address] Performed By: #### 2 4321-2 ####[facility]ATORYCLIA [id number] [address] [place] [facility] CBC panel Auto (Bld)on 01-14 Erythrocyte distribution width (RBC) [Ratio] 16.5 % High 11.5-15.0 [facility] Comment on above: Order Comment: Speci men Type: BLOOD SPECIMENOrdering Facility: [facility] Address: [address] [place] [address] Performed By: #### 5 8410-2 ####[facility]ATORYCLIA [id number] [address] Hematocrit (Bld) [Volume fraction] 33.1 % Low 36.0-46.0 [facility] Comment on above: Order Comment: Speci men Type: BLOOD SPECIMENOrdering Facility: [facility] Address: [address] [place] [address] Performed By: #### 5 8410-2 ####[facility] LABORATORYCLIA [id number] [address] OF [facility] Hemoglobin (Bld) [Mass/Vol] 10.0 g/dL Low 11.5-15.5 [facility] Comment on above: Order Comment: Speci men Type: BLOOD SPECIMENOrdering Facility: [facility] Address: [address] [place] [address] Performed By: #### 5 8410-2 ####[facility] LABORATORYCLIA [id number] [address] MCH (RBC) [Entitic mass] 28.0 pg Normal 26.0-34.0 [facility] Comment on above: Order Comment: Speci men Type: BLOOD SPECIMENOrdering Facility: [facility] Address: [address] [address] Performed By: #### 5 8410-2 ####[facility] LABORATORYCLIA [id number] [address] MCHC (RBC) [Mass/Vol] 30.2 g/dL Low 30.5-36.0 [facility] Comment on above: Order Comment: Speci men Type: BLOOD SPECIMENOrdering Facility: [facility] Address: [address] [address] Performed By: #### 5 8410-2 ####[facility]ORATORYCLIA [id number] [address] MCV (RBC) [Entitic vol] 92.7 fL Normal 80.0-100.0 [facility] Comment on above: Order Comment: Speci men Type: BLOOD SPECIMENOrdering Facility: [facility] Address: [address] [address] Performed By: #### 5 8410-2 ####[facility]ORATORYCLIA [id number] [address] Nucleated RBC (Bld) [#/Vol] 10*3/uL Normal <0.01 [facility] Comment on above: Order Comment: Speci men Type: BLOOD SPECIMENOrdering Facility: [facility] Address: [address] [place] [address] Performed By: #### 5 8410-2 ####[facility] LABORATORYCLIA [id number] [address] Platelet mean volume (Bld) [Entitic vol] 9.5 fL Normal 9.0-12.7 [facility] Comment on above: Order Comment: Speci men Type: BLOOD SPECIMENOrdering Facility: [facility] Address: [address] [address] Performed By: #### 5 8410-2 ####[facility]ORATORYCLIA [id number] [address] Platelets (Bld) [#/Vol] 284 10*3/uL Normal 150-400 [facility] Comment on above: Order Comment: Speci men Type: BLOOD SPECIMENOrdering Facility: [facility] Address: [address] [place] [address] Performed By: #### 5 8410-2 ####[facility]ORATORYCLIA [id number] [address] [place] RBC (Bld) [#/Vol] 3.57 10*6/uL Low 3.90-5.20 [facility] Comment on above: Order Comment: Speci men Type: BLOOD SPECIMENOrdering Facility: [facility] Address: [address] [place] [address] Performed By: #### 5 8410-2 ####[facility]ATORYCLIA [id number] [address] WBC (Bld) [#/Vol] 9.64 10*3/uL Normal 3.70-11.00 [facility] Comment on above: Order Comment: Speci men Type: BLOOD SPECIMENOrdering Facility: [facility] Address: [address] [place] [address] Performed By: #### 5 8410-2 ####[facility]ORATORYCLIA [id number] [address] ABD/PEL W IVCONon 023 CT ABD/PEL W IVCON Normal [facility] HISTORY PHYSICALon 3 HISTORY PHYSICAL Normal [facility] OPERATIVE NOon 01-14-2023 OPERATIVE NO Normal [facility] SARS-CoV-2 RNA Resp Ql SURESH+p robeon 01-14-2023 SARS-CoV-2 (COVID-19) RNA SURESH+probe Ql (Resp) COVID 19 RESULT: Not detected The method used is RT-PCR or an equivalent NAAT method. Reference Range(the expected result in uninfected individuals): Not detected Normal [facility] Comment on above: Performed By: #### 9 4500-6 ####[facility]ATORYCLIA [id number] [address] CNOVon 01-13-2023 CNOV Normal [facility] Basic metabolic 2000 panelon 01-12-2023 Anion gap [Moles/Vol] 14 mmol/L Normal 9-18 [facility] Comment on above: Order Comment: Speci men Type: BLOOD SPECIMENOrdering Facility: [facility] Address: [address] [place] [address] Performed By: #### 2 4321-2 ####[facility]ORATORYCLIA [id number] [place] [address] [place] Calcium [Mass/Vol] 9.4 mg/dL Normal 8.5-10.2 [facility] Comment on above: Order Comment: Speci men Type: BLOOD SPECIMENOrdering Facility: [facility] Address: [address] [place] [address] Performed By: #### 2 4321-2 ####[facility]ORATORYCLIA [id number] [address] [place] Chloride [Moles/Vol] 101 mmol/L Normal 97-105 [facility] Comment on above: Order Comment: Speci men Type: BLOOD SPECIMENOrdering Facility: [facility] Address: [address] [place] [address] Performed By: #### 2 4321-2 ####[facility]ORATORYCLIA [id number] [place] [address] [place] CO2 [Moles/Vol] 26 mmol/L Normal 22-30 [facility] Comment on above: Order Comment: Speci men Type: BLOOD SPECIMENOrdering Facility: [facility] Address: [address] [place] [address] Performed By: #### 2 4321-2 ####[facility]ATORYCLIA [id number] [place] [address] [place] Creatinine [Mass/Vol] 0.76 mg/dL Normal 0.58-0.96 [facility] Comment on above: Order Comment: Speci men Type: BLOOD SPECIMENOrdering Facility: [facility] Address: [address] [address] Performed By: #### 2 4321-2 ####[facility]ITALCLIA [id number] [place] [id number] [facility] [place] ESTIMATED GLOMERULAR FILTRATION RATE 99 mL/min/1.73m??? Normal >=60 [facility] Comment on above: Order Comment: Specernesto men Type: BLOOD SPECIMENOrdering Facility: [facility] Address: [address] [address] Result Comment: Gayle mated Glomerular Filtration Rate (eGFR) is calculated using the 2020 CKD-EPI creatinine equation. This equation utilizes serum creatinine, sex, and age as parameters. The creatinine assay has traceable calibration to isotope dilution-mass spectrometry. Refer to KDIGO guidelines for clinical interpretation. In patients with unstable renal function, e.g. those with acute kidney injury, the eGFR may not accurately reflect actual GFR. Performed By: #### 2 4321-2 ####[facility] CENTERIA [id number] [place] [id number] [place] Glucose [Mass/Vol] 221 mg/dL High 74-99 [facility] Comment on above: Order Comment: Specernesto talbot Type: BLOOD SPECIMENOrdering Facility: [facility] Address: [address] [place] [address] Result Comment: The [place] Diabetes Association (ADA) provides guidance for cutoff values for fasting glucose and random glucose. The ADA defines fasting as no caloric intake for at least 8 hours. Fasting plasma glucose results between 100 to 125 mg/dL indicate increased risk for diabetes (prediabetes).Fasting plasma glucose results greater than or equal to 126 mg/dL meet the criteria for diagnosis of diabetes. In the absence of unequivocal hyperglycemia, results should be confirmed by repeat testing. In a patient with classic symptoms of hyperglycemia or hyperglycemic crisis, random plasma glucose results greater than or equal to 200 mg/dL meet the criteria for diagnosis of diabetes.Reference: Standards of Medical Care in Diabetes 2016, [place] [employer]. Diabetes Care. 2016.39(Suppl 1). Performed By: #### 2 4321-2 ####[facility]ORATORYCLIA [id number] [place] [id number] [place] Potassium [Moles/Vol] 4.7 mmol/L Normal 3.7-5.1 [facility] Comment on above: Order Comment: Speci men Type: BLOOD SPECIMENOrdering Facility: [facility] Address: [address] [place] [address] Performed By: #### 2 4321-2 ####[facility]ORATORYCLIA [id number] [address] [place] Sodium [Moles/Vol] 141 mmol/L Normal 136-144 [facility] Comment on above: Order Comment: Speci men Type: BLOOD SPECIMENOrdering Facility: [facility] Address: [address] [place] [address] Performed By: #### 2 4321-2 ####[facility]ORATORYCLIA [id number] [address] STATES OF [facility] Urea nitrogen [Mass/Vol] 15 mg/dL Normal 7-21 [facility] Comment on above: Order Comment: Speci men Type: BLOOD SPECIMENOrdering Facility: [facility] Address: [address] [place] [address] Performed By: #### 2 4321-2 ####[facility]ATORYCLIA [id number] [address] [place] CBC W Auto Differential pane l (Bld)on 01-12-2023 Basophils (Bld) [#/Vol] 0.09 10*3/uL Normal <0.11 [facility] Comment on above: Order Comment: Speci men Type: BLOOD SPECIMENOrdering Facility: [facility] Address: [address] [place] [address] Performed By: #### 5 7021-8 ####[facility]ATORYCLIA [id number] [address] [place] [facility] Basophils/100 WBC (Bld) 0.9 % Normal [facility] Comment on above: Order Comment: Speci men Type: BLOOD SPECIMENOrdering Facility: [facility] Address: [address] [place] [address] Performed By: #### 5 7021-8 ####[facility]ATORYCLIA [id number] [address] Differential cell count method Nom (Bld) Auto Normal [facility] Comment on above: Order Comment: Speci men Type: BLOOD SPECIMENOrdering Facility: [facility] Address: [address] [place] [address] Performed By: #### 5 7021-8 ####[facility]ORATORYCLIA [id number] [address] Eosinophils (Bld) [#/Vol] 0.22 10*3/uL Normal <0.46 [facility] Comment on above: Order Comment: Speci men Type: BLOOD SPECIMENOrdering Facility: [facility] Address: [address] [place] [address] Performed By: #### 5 7021-8 ####[facility]ATORYCLIA [id number] [address] Eosinophils/100 WBC (Bld) 2.1 % Normal [facility] Comment on above: Order Comment: Speci men Type: BLOOD SPECIMENOrdering Facility: [facility] Address: [address] [place] [address] Performed By: #### 5 7021-8 ####[facility]ATORYCLIA [id number] [address] [place] Erythrocyte distribution width (RBC) [Ratio] 16.6 % High 11.5-15.0 [facility] Comment on above: Order Comment: Speci men Type: BLOOD SPECIMENOrdering Facility: [facility] Address: [address] [place] [address] Performed By: #### 5 7021-8 ####[facility]ATORYCLIA [id number] [address] Hematocrit (Bld) [Volume fraction] 37.0 % Normal 36.0-46.0 [facility] Comment on above: Order Comment: Speci men Type: BLOOD SPECIMENOrdering Facility: [facility] Address: [address] [place] [address] Performed By: #### 5 7021-8 ####[facility] LABORATORYCLIA [id number] [place] [address] [place] Hemoglobin (Bld) [Mass/Vol] 10.9 g/dL Low 11.5-15.5 [facility] Comment on above: Order Comment: Speci men Type: BLOOD SPECIMENOrdering Facility: [facility] Address: [address] [place] [address] Performed By: #### 5 7021-8 ####[facility]ATORYCLIA [id number] [place] [address] [place] Immature granulocytes (Bld) [#/Vol] 0.12 10*3/uL High <0.10 [facility] Comment on above: Order Comment: Speci men Type: BLOOD SPECIMENOrdering Facility: [facility] Address: [address] [place] [address] Performed By: #### 5 7021-8 ####[facility]ORATORYCLIA [id number] [address] [place] Immature granulocytes/100 WBC (Bld) 1.1 % Normal [facility] Comment on above: Order Comment: Speci men Type: BLOOD SPECIMENOrdering Facility: [facility] Address: [address] [place] [address] Performed By: #### 5 7021-8 ####[facility]ORATORYCLIA [id number] [place] [address] [place] Lymphocytes (Bld) [#/Vol] 2.50 10*3/uL Normal 1.00-4.00 [facility] Comment on above: Order Comment: Speci men Type: BLOOD SPECIMENOrdering Facility: [facility] Address: [address] [place] [address] Performed By: #### 5 7021-8 ####[facility]ATORYCLIA [id number] [address] [place] Lymphocytes/100 WBC (Bld) 23.8 % Normal [facility] Comment on above: Order Comment: Speci men Type: BLOOD SPECIMENOrdering Facility: [facility] Address: [address] [address] Performed By: #### 5 7021-8 ####[facility]ATORYCLIA [id number] [address] MCH (RBC) [Entitic mass] 28.0 pg Normal 26.0-34.0 [facility] Comment on above: Order Comment: Speci men Type: BLOOD SPECIMENOrdering Facility: [facility] Address: [address] [place] [address] Performed By: #### 5 7021-8 ####[facility]ATORYCLIA [id number] [address] MCHC (RBC) [Mass/Vol] 29.5 g/dL Low 30.5-36.0 [facility] Comment on above: Order Comment: Speci men Type: BLOOD SPECIMENOrdering Facility: [facility] Address: [address] [address] Performed By: #### 5 7021-8 ####[facility]ATORYCLIA [id number] [address] MCV (RBC) [Entitic vol] 95.1 fL Normal 80.0-100.0 [facility] Comment on above: Order Comment: Speci men Type: BLOOD SPECIMENOrdering Facility: [facility] Address: [address] [place] [address] Performed By: #### 5 7021-8 ####[facility]ATORYCLIA [id number] [address] Monocytes (Bld) [#/Vol] 0.50 10*3/uL Normal <0.87 [facility] Comment on above: Order Comment: Speci men Type: BLOOD SPECIMENOrdering Facility: [facility] Address: [address] [place] [address] Performed By: #### 5 7021-8 ####[facility]ORATORYCLIA [id number] [place] [address] [place] Monocytes/100 WBC (Bld) 4.8 % Normal [facility] Comment on above: Order Comment: Speci men Type: BLOOD SPECIMENOrdering Facility: [facility] Address: [address] [place] [address] Performed By: #### 5 7021-8 ####[facility]ORATORYCLIA [id number] [place] [address] [place] Neutrophils (Bld) [#/Vol] 7.07 10*3/uL Normal 1.45-7.50 [facility] Comment on above: Order Comment: Speci men Type: BLOOD SPECIMENOrdering Facility: [facility] Address: [address] [place] [address] Performed By: #### 5 7021-8 ####[facility]ATORYCLIA [id number] [address] [place] Neutrophils/100 WBC (Bld) 67.3 % Normal [facility] Comment on above: Order Comment: Speci men Type: BLOOD SPECIMENOrdering Facility: [facility] Address: [address] [place] [address] Performed By: #### 5 7021-8 ####[facility]ATORYCLIA [id number] [place] [address] [place] Nucleated RBC (Bld) [#/Vol] 0.02 10*3/uL High <0.01 [facility] Comment on above: Order Comment: Speci men Type: BLOOD SPECIMENOrdering Facility: [facility] Address: [address] [place] [address] Performed By: #### 5 7021-8 ####[facility]ATORYCLIA [id number] [place] [address] [place] Nucleated RBC/100 WBC (Bld) [Ratio] 0.2 /100 WBC Normal [facility] Comment on above: Order Comment: Speci men Type: BLOOD SPECIMENOrdering Facility: [facility] Address: [address] [place] [address] Performed By: #### 5 7021-8 ####[facility]ATORYCLIA [id number] [address] Platelet mean volume (Bld) [Entitic vol] 9.5 fL Normal 9.0-12.7 [facility] Comment on above: Order Comment: Speci men Type: BLOOD SPECIMENOrdering Facility: [facility] Address: [address] [place] [address] Performed By: #### 5 7021-8 ####[facility]ATORYCLIA [id number] [address] [place] Platelets (Bld) [#/Vol] 337 10*3/uL Normal 150-400 [facility] Comment on above: Order Comment: Speci men Type: BLOOD SPECIMENOrdering Facility: [facility] Address: [address] [place] [address] Performed By: #### 5 7021-8 ####[facility]ATORYCLIA [id number] [address] [place] RBC (Bld) [#/Vol] 3.89 10*6/uL Low 3.90-5.20 [facility] Comment on above: Order Comment: Speci men Type: BLOOD SPECIMENOrdering Facility: [facility] Address: [address] [place] [address] Performed By: #### 5 7021-8 ####[facility]ATORYCLIA [id number] [address] [place] WBC (Bld) [#/Vol] 10.50 10*3/uL Normal 3.70-11.00 [facility] Comment on above: Order Comment: Speci men Type: BLOOD SPECIMENOrdering Facility: [facility] Address: [address] [place] [address] Performed By: #### 5 7021-8 ####[facility]ATORYCLIA [id number] [address] ED Triage Noteon 02-12-2023 ED Triage Note Normal [facility] CNPNon 01-06-2023 CNPN Normal [facility] CNCOon 01-03-2023 CNCO Letter Text Normal [facility] Basic metabolic 2000 panelon 01-01-2023 Anion gap [Moles/Vol] 12 mmol/L Normal 9-18 [facility] Comment on above: Order Comment: Speci men Type: BLOOD SPECIMENOrdering Facility: [facility] Address: [address] [place] [address] Performed By: #### 2 4321-2 ####[facility]ATORYCLIA [id number] [place] [address] [place] Calcium [Mass/Vol] 9.1 mg/dL Normal 8.5-10.2 [facility] Comment on above: Order Comment: Speci men Type: BLOOD SPECIMENOrdering Facility: [facility] Address: [address] [place] [address] Performed By: #### 2 4321-2 ####[facility]ORYCLIA [id number] [place] [address] [place] Chloride [Moles/Vol] 97 mmol/L Normal 97-105 [facility] Comment on above: Order Comment: Speci men Type: BLOOD SPECIMENOrdering Facility: [facility] Address: [address] [place] [address] Performed By: #### 2 4321-2 ####[facility]ORYCLIA [id number] [place] [address] [place] CO2 [Moles/Vol] 29 mmol/L Normal 22-30 [facility] Comment on above: Order Comment: Speci men Type: BLOOD SPECIMENOrdering Facility: [facility] Address: [address] [place] [address] Performed By: #### 2 4321-2 ####[facility]ORYCLIA [id number] [place] [address] [place] Creatinine [Mass/Vol] 0.90 mg/dL Normal 0.58-0.96 [facility] Comment on above: Order Comment: Speci men Type: BLOOD SPECIMENOrdering Facility: [facility] Address: [address] [place] [address] Performed By: #### 2 4321-2 ####[facility] CENTERIA [id number] [address] [place] ESTIMATED GLOMERULAR FILTRATION RATE 81 mL/min/1.73m??? Normal >=60 [facility] Comment on above: Order Comment: Roberto talbot Type: BLOOD SPECIMENOrdering Facility: [facility] Address: [address] [place] [address] Result Comment: Gayle mated Glomerular Filtration Rate (eGFR) is calculated using the 2020 CKD-EPI creatinine equation. This equation utilizes serum creatinine, sex, and age as parameters. The creatinine assay has traceable calibration to isotope dilution-mass spectrometry. Refer to KDIGO guidelines for clinical interpretation. In patients with unstable renal function, e.g. those with acute kidney injury, the eGFR may not accurately reflect actual GFR. Performed By: #### 2 4321-2 ####[facility] CENTERIA [id number] [place] [address] [place] Glucose [Mass/Vol] 151 mg/dL High 74-99 [facility] Comment on above: Order Comment: Roberto talbot Type: BLOOD SPECIMENOrdering Facility: [facility] Address: [address] [place] [address] Result Comment: The [place] Diabetes Association (ADA) provides guidance for cutoff values for fasting glucose and random glucose. The ADA defines fasting as no caloric intake for at least 8 hours. Fasting plasma glucose results between 100 to 125 mg/dL indicate increased risk for diabetes (prediabetes).Fasting plasma glucose results greater than or equal to 126 mg/dL meet the criteria for diagnosis of diabetes. In the absence of unequivocal hyperglycemia, results should be confirmed by repeat testing. In a patient with classic symptoms of hyperglycemia or hyperglycemic crisis, random plasma glucose results greater than or equal to 200 mg/dL meet the criteria for diagnosis of diabetes.Reference: Standards of Medical Care in Diabetes 2016, [place] [employer]. Diabetes Care. 2016.39(Suppl 1). Performed By: #### 2 4321-2 ####[facility]ATORYCLIA [id number] [place] [address] [place] Potassium [Moles/Vol] 4.2 mmol/L Normal 3.7-5.1 [facility] Comment on above: Order Comment: Speci men Type: BLOOD SPECIMENOrdering Facility: [facility] Address: [address] [place] [address] Performed By: #### 2 4321-2 ####[facility]ATORYCLIA [id number] [place] [address] [place] Sodium [Moles/Vol] 138 mmol/L Normal 136-144 [facility] Comment on above: Order Comment: Speci men Type: BLOOD SPECIMENOrdering Facility: [facility] Address: [address] [place] [address] Performed By: #### 2 4321-2 ####[facility]ATORYCLIA [id number] [address] [place] Urea nitrogen [Mass/Vol] 21 mg/dL Normal 7-21 [facility] Comment on above: Order Comment: Speci men Type: BLOOD SPECIMENOrdering Facility: [facility] Address: [address] [place] [address] Performed By: #### 2 4321-2 ####[facility]ATORYCLIA [id number] [address] [place] CASE MANAGEMon 01-01-2023 CASE MANAGEM Normal [facility] CBC panel Auto (Bld)on 01-01 Erythrocyte distribution width (RBC) [Ratio] 15.8 % High 11.5-15.0 [facility] Comment on above: Order Comment: Speci men Type: BLOOD SPECIMENOrdering Facility: [facility] Address: [address] [place] [address] Performed By: #### 5 8410-2 ####[facility]ATORYCLIA [id number] [address] [place] Hematocrit (Bld) [Volume fraction] 34.8 % Low 36.0-46.0 [facility] Comment on above: Order Comment: Speci men Type: BLOOD SPECIMENOrdering Facility: [facility] Address: [address] [place] [address] Performed By: #### 5 8410-2 ####[facility]ATORYCLIA [id number] [address] Hemoglobin (Bld) [Mass/Vol] 10.2 g/dL Low 11.5-15.5 [facility] Comment on above: Order Comment: Speci men Type: BLOOD SPECIMENOrdering Facility: [facility] Address: [address] [place] [address] Performed By: #### 5 8410-2 ####[facility] LABORATORYCLIA [id number] [address] MCH (RBC) [Entitic mass] 27.8 pg Normal 26.0-34.0 [facility] Comment on above: Order Comment: Speci men Type: BLOOD SPECIMENOrdering Facility: [facility] Address: [address] [place] [address] Performed By: #### 5 8410-2 ####[facility] LABORATORYCLIA [id number] [address] MCHC (RBC) [Mass/Vol] 29.3 g/dL Low 30.5-36.0 [facility] Comment on above: Order Comment: Speci men Type: BLOOD SPECIMENOrdering Facility: [facility] Address: [address] [place] [address] Performed By: #### 5 8410-2 ####[facility] LABORATORYCLIA [id number] [address] MCV (RBC) [Entitic vol] 94.8 fL Normal 80.0-100.0 [facility] Comment on above: Order Comment: Speci men Type: BLOOD SPECIMENOrdering Facility: [facility] Address: [address] [place] [address] Performed By: #### 5 8410-2 ####[facility] LABORATORYCLIA [id number] [place] [address] [place] Nucleated RBC (Bld) [#/Vol] 0.02 10*3/uL High <0.01 [facility] Comment on above: Order Comment: Speci men Type: BLOOD SPECIMENOrdering Facility: [facility] Address: [address] [place] [address] Performed By: #### 5 8410-2 ####[facility] LABORATORYCLIA [id number] [place] [address] [place] Platelet mean volume (Bld) [Entitic vol] 9.4 fL Normal 9.0-12.7 [facility] Comment on above: Order Comment: Speci men Type: BLOOD SPECIMENOrdering Facility: [facility] Address: [address] [place] [address] Performed By: #### 5 8410-2 ####[facility]ORATORYCLIA [id number] [address] [place] Platelets (Bld) [#/Vol] 426 10*3/uL High 150-400 [facility] Comment on above: Order Comment: Speci men Type: BLOOD SPECIMENOrdering Facility: [facility] Address: [address] [place] [address] Performed By: #### 5 8410-2 ####[facility]ORATORYCLIA [id number] [address] [place] RBC (Bld) [#/Vol] 3.67 10*6/uL Low 3.90-5.20 [facility] Comment on above: Order Comment: Speci men Type: BLOOD SPECIMENOrdering Facility: [facility] Address: [address] [place] [address] Performed By: #### 5 8410-2 ####[facility]ORATORYCLIA [id number] [address] [place] WBC (Bld) [#/Vol] 13.51 10*3/uL High 3.70-11.00 [facility] Comment on above: Order Comment: Speci men Type: BLOOD SPECIMENOrdering Facility: [facility] Address: [address] [place] [address] Performed By: #### 5 8410-2 ####[facility] LABORATORYCLIA [id number] [place] [address] [place] CNDSon 01-01-2023 CNDS Normal [facility] CONSULT PROGon 01-01-2023 CONSULT PROG Normal [facility] THERAPY NTon 01-01-2023 THERAPY NT Normal [facility] THERAPY NT Normal [facility] ALLIED HEALTHon 12-31-2022 ALLIED HEALTH Normal [facility] ALLIED HEALTH Normal [facility] Basic metabolic 2000 panelon 12-31-2022 Anion gap [Moles/Vol] 14 mmol/L Normal 9-18 [facility] Comment on above: Order Comment: Speci men Type: BLOOD SPECIMENOrdering Facility: [facility] Address: [address] [place] [address] Performed By: #### 1 9123-9, 33867-9, 2776-12 ####[facility]ATORYCLIA [id number] [place] [address] [place] Calcium [Mass/Vol] 9.4 mg/dL Normal 8.5-10.2 [facility] Comment on above: Order Comment: Speci men Type: BLOOD SPECIMENOrdering Facility: [facility] Address: [address] [place] [address] Performed By: #### 1 9123-9, 36934-4, 2776- ####[facility]ATORYCLIA [id number] [place] [address] [place] Chloride [Moles/Vol] 94 mmol/L Low 97-105 [facility] Comment on above: Order Comment: Speci men Type: BLOOD SPECIMENOrdering Facility: [facility] Address: [address] [place] [address] Performed By: #### 1 9123-9, 24102-5, 2776- ####[facility]ATORYCLIA [id number] [place] [address] [place] CO2 [Moles/Vol] 29 mmol/L Normal 22-30 [facility] Comment on above: Order Comment: Speci men Type: BLOOD SPECIMENOrdering Facility: [facility] Address: [place] [address] Performed By: #### 1 9123-9, 25778-6, 2776-12 ####[facility]ATORYCLIA [id number] [place] [address] [place] Creatinine [Mass/Vol] 0.98 mg/dL High 0.58-0.96 [facility] Comment on above: Order Comment: Speci men Type: BLOOD SPECIMENOrdering Facility: [facility] Address: [address] [place] [address] Performed By: #### 1 9123-9, 32095-0, 2776-12 ####[facility]ITALCLIA [id number] [address] STATES OF [facility] ESTIMATED GLOMERULAR FILTRATION RATE 73 mL/min/1.73m??? Normal >=60 [facility] Comment on above: Order Comment: Speci men Type: BLOOD SPECIMENOrdering Facility: [facility] Address: [address] [place] [address] Result Comment: Gayle mated Glomerular Filtration Rate (eGFR) is calculated using the 2020 CKD-EPI creatinine equation. This equation utilizes serum creatinine, sex, and age as parameters. The creatinine assay has traceable calibration to isotope dilution-mass spectrometry. Refer to KDIGO guidelines for clinical interpretation. In patients with unstable renal function, e.g. those with acute kidney injury, the eGFR may not accurately reflect actual GFR. Performed By: #### 1 9123-9, 93649-1, 2776-12 ####[facility]ATORYCLIA [id number] [place] [address] [place] Glucose [Mass/Vol] 173 mg/dL High 74-99 [facility] Comment on above: Order Comment: Speci men Type: BLOOD SPECIMENOrdering Facility: [facility] Address: [address] [place] [address] Result Comment: The [place] Diabetes Association (ADA) provides guidance for cutoff values for fasting glucose and random glucose. The ADA defines fasting as no caloric intake for at least 8 hours. Fasting plasma glucose results between 100 to 125 mg/dL indicate increased risk for diabetes (prediabetes).Fasting plasma glucose results greater than or equal to 126 mg/dL meet the criteria for diagnosis of diabetes. In the absence of unequivocal hyperglycemia, results should be confirmed by repeat testing. In a patient with classic symptoms of hyperglycemia or hyperglycemic crisis, random plasma glucose results greater than or equal to 200 mg/dL meet the criteria for diagnosis of diabetes.Reference: Standards of Medical Care in Diabetes 2016, [place] [employer]. Diabetes Care. 2016.39(Suppl 1). Performed By: #### 1 9123-9, 98278-5, 2776-12 ####[facility]ORATORYCLIA [id number] [place] [address] [place] Potassium [Moles/Vol] 3.9 mmol/L Normal 3.7-5.1 [facility] Comment on above: Order Comment: Roberto talbot Type: BLOOD SPECIMENOrdering Facility: [facility] Address: [address] [place] [address] Performed By: #### 1 9123-9, 94973-6, 2776-12 ####[facility]ATORYCLIA [id number] [place] [address] [place] Sodium [Moles/Vol] 137 mmol/L Normal 136-144 [facility] Comment on above: Order Comment: Roberto talbot Type: BLOOD SPECIMENOrdering Facility: [facility] Address: [address] [place] [address] Performed By: #### 1 9123-9, 60242-6, 2776-12 ####[facility]ATORYCLIA [id number] [place] [address] [place] Urea nitrogen [Mass/Vol] 19 mg/dL Normal 7-21 [facility] Comment on above: Order Comment: Roberto men Type: BLOOD SPECIMENOrdering Facility: [facility] Address: [address] [place] [address] Performed By: #### 1 9123-9, 91651-0, 2776- ####[facility]ATORYCLIA [id number] [address] STATES OF [facility] CBC panel Auto (Bld)on 12-31 Erythrocyte distribution width (RBC) [Ratio] 15.9 % High 11.5-15.0 [facility] Comment on above: Order Comment: Speci men Type: BLOOD SPECIMENOrdering Facility: [facility] Address: [address] [place] [address] Performed By: #### 5 8410-2 ####[facility]ATORYCLIA [id number] [address] Hematocrit (Bld) [Volume fraction] 34.1 % Low 36.0-46.0 [facility] Comment on above: Order Comment: Speci men Type: BLOOD SPECIMENOrdering Facility: [facility] Address: [address] [place] [address] Performed By: #### 5 8410-2 ####[facility]ATORYCLIA [id number] [address] Hemoglobin (Bld) [Mass/Vol] 10.1 g/dL Low 11.5-15.5 [facility] Comment on above: Order Comment: Speci men Type: BLOOD SPECIMENOrdering Facility: [facility] Address: [address] [place] [address] Performed By: #### 5 8410-2 ####[facility]ATORYCLIA [id number] [address] STATES [facility] MCH (RBC) [Entitic mass] 27.8 pg Normal 26.0-34.0 [facility] Comment on above: Order Comment: Speci men Type: BLOOD SPECIMENOrdering Facility: [facility] Address: [address] [place] [address] Performed By: #### 5 8410-2 ####[facility]ATORYCLIA [id number] [address] [place] MCHC (RBC) [Mass/Vol] 29.6 g/dL Low 30.5-36.0 [facility] Comment on above: Order Comment: Speci men Type: BLOOD SPECIMENOrdering Facility: [facility] Address: [address] [address] Performed By: #### 5 8410-2 ####[facility]ATORYCLIA [id number] [address] STATES OF [facility] MCV (RBC) [Entitic vol] 93.9 fL Normal 80.0-100.0 [facility] Comment on above: Order Comment: Speci men Type: BLOOD SPECIMENOrdering Facility: [facility] Address: [address] [place] [address] Performed By: #### 5 8410-2 ####[facility]ORYCLIA [id number] [address] [place] Nucleated RBC (Bld) [#/Vol] 10*3/uL Normal <0.01 [facility] Comment on above: Order Comment: Speci men Type: BLOOD SPECIMENOrdering Facility: [facility] Address: [address] [address] Performed By: #### 5 8410-2 ####[facility]ATORYCLIA [id number] [address] OF [facility] Platelet mean volume (Bld) [Entitic vol] 9.2 fL Normal 9.0-12.7 [facility] Comment on above: Order Comment: Speci men Type: BLOOD SPECIMENOrdering Facility: [facility] Address: [address] [address] Performed By: #### 5 8410-2 ####[facility]ORYCLIA [id number] [address] [place] Platelets (Bld) [#/Vol] 435 10*3/uL High 150-400 [facility] Comment on above: Order Comment: Speci men Type: BLOOD SPECIMENOrdering Facility: [facility] Address: [address] [place] [address] Performed By: #### 5 8410-2 ####[facility]ATORYCLIA [id number] [address] STATES OF [facility] RBC (Bld) [#/Vol] 3.63 10*6/uL Low 3.90-5.20 [facility] Comment on above: Order Comment: Speci men Type: BLOOD SPECIMENOrdering Facility: [facility] Address: [address] [place] [address] Performed By: #### 5 8410-2 ####[facility]ATORYCLIA [id number] [address] OF [facility] WBC (Bld) [#/Vol] 15.84 10*3/uL High 3.70-11.00 [facility] Comment on above: Order Comment: Speci men Type: BLOOD SPECIMENOrdering Facility: [facility] Address: [address] [place] [address] Performed By: #### 5 8410-2 ####[facility]ATORYCLIA [id number] [address] OF [facility] CONSULT PROGon 12-31-2022 CONSULT PROG Normal [facility] CONSULT PROG Normal [facility] Calcium.ionized [Moles/Vol]o n 12-31-2022 Calcium.ionized (BldV) [Mass/Vol] 1.16 mmol/L Normal 1.08-1.30 [facility] Comment on above: Order Comment: Speci men Type: BLOOD SPECIMENOrdering Facility: [facility] Address: [address] [place] [address] Performed By: #### 1 995-0 ####[facility]ATORYCLIA [id number] [address] Calcium.ionized adjusted to pH 7.4 (Bld) [Moles/Vol] 1.12 mmol/L Normal 1.08-1.30 [facility] Comment on above: Order Comment: Speci men Type: BLOOD SPECIMENOrdering Facility: [facility] Address: [address] [place] [address] Performed By: #### 1 995-0 ####[facility]ATORYCLIA [id number] [address] [place] Magnesium SerPl-mCncon 12-31 Magnesium [Mass/Vol] 1.5 mg/dL Low 1.7-2.3 [facility] Comment on above: Order Comment: Speci men Type: BLOOD SPECIMENOrdering Facility: [facility] Address: [place] [address] Performed By: #### 1 9123-9, 46338-0, 2777-1 ####[facility]ATORYCLIA [id number] [address] [place] NURSING PROGon 12-31-2022 NURSING PROG Normal [facility] Phosphate SerPl-mCncon 12-31 Phosphate [Mass/Vol] 3.5 mg/dL Normal 2.7-4.8 [facility] Comment on above: Order Comment: Speci men Type: BLOOD SPECIMENOrdering Facility: [facility] Address: [place] [address] Performed By: #### 1 9123-9, 09749-8, 2777- ####[facility]ATORYCLIA [id number] [address] [place] THERAPY NTon 12-31-2022 THERAPY NT Normal [facility] XR CHEST 1V FRONTALon 2022 XR CHEST 1V FRONTAL Normal [facility] ALLIED HEALTHon 12-30-2022 ALLIED HEALTH Normal [facility] ARTERIAL BLOOD GASESon 12-30 Base excess Calc (Bld) [Moles/Vol] 8 mmol/L High 0-2 [facility] Comment on above: Order Comment: Speci men Type: ARTERIAL BLOOD SPECIMENOrdering Facility: [facility] Address: [place] [address] Performed By: #### A LLBG ####[facility]ATORYCLIA [id number] [address] [place] Body temperature 97.34 [degF] Normal [facility] Comment on above: Order Comment: Speci men Type: ARTERIAL BLOOD SPECIMENOrdering Facility: [facility] Address: [address] [address] Performed By: #### A LLBG ####[facility]ATORYCLIA [id number] [address] Calcium.ionized (BldV) [Mass/Vol] 1.19 mmol/L Normal 1.08-1.30 [facility] Comment on above: Order Comment: Speci men Type: ARTERIAL BLOOD SPECIMENOrdering Facility: [facility] Address: [address] [place] [address] Performed By: #### A LLBG ####[facility]ATORYCLIA [id number] [address] Calcium.ionized adjusted to pH 7.4 (BldA) [Moles/Vol] 1.20 mmol/L Normal 1.08-1.30 [facility] Comment on above: Order Comment: Speci men Type: ARTERIAL BLOOD SPECIMENOrdering Facility: [facility] Address: [address] [place] [address] Performed By: #### A LLBG ####[facility]ATORYCLIA [id number] [address] Carboxyhemoglobin (BldA) [Mass fraction] 1.3 % Normal 0.0-2.0 [facility] Comment on above: Order Comment: Speci men Type: ARTERIAL BLOOD SPECIMENOrdering Facility: [facility] Address: [address] [place] [address] Result Comment: Carb oxyhemoglobin Reference Range for Smokers: 2.0-8.0% Performed By: #### A LLBG ####[facility]ATORYCLIA [id number] [address] Chloride [Moles/Vol] 100 mmol/L Low 102-109 [facility] Comment on above: Order Comment: Speci men Type: ARTERIAL BLOOD SPECIMENOrdering Facility: [facility] Address: [address] [place] [address] Performed By: #### A LLBG ####[facility]ATORYCLIA [id number] [address] [place] CO2 (Bld) [Partial pressure] 51 mm Hg High 36-46 [facility] Comment on above: Order Comment: Speci men Type: ARTERIAL BLOOD SPECIMENOrdering Facility: [facility] Address: [address] [place] [address] Performed By: #### A LLBG ####[facility]ORATORYCLIA [id number] [place] [address] [place] CO2 [Moles/Vol] 30 mmol/L High 22-28 [facility] Comment on above: Order Comment: Speci men Type: ARTERIAL BLOOD SPECIMENOrdering Facility: [facility] Address: [address] [place] [address] Performed By: #### A LLBG ####[facility]ATORYCLIA [id number] [address] [place] CO2 adjusted to patient's actual temperature (Bld) [Partial pressure] 49 mmHg High 36-46 [facility] Comment on above: Order Comment: Speci men Type: ARTERIAL BLOOD SPECIMENOrdering Facility: [facility] Address: [address] [place] [address] Performed By: #### A LLBG ####[facility]ATORYCLIA [id number] [place] [address] [place] Glucose [Mass/Vol] 168 mg/dL High 60-105 [facility] Comment on above: Order Comment: Speci men Type: ARTERIAL BLOOD SPECIMENOrdering Facility: [facility] Address: [address] [place] [address] Performed By: #### A LLBG ####[facility]ATORYCLIA [id number] [place] [address] [place] HCO3 (Bld) [Moles/Vol] 33 mmol/L High 22-26 [facility] Comment on above: Order Comment: Speci men Type: ARTERIAL BLOOD SPECIMENOrdering Facility: [facility] Address: [address] [place] [address] Performed By: #### A LLBG ####[facility]ATORYCLIA [id number] [address] [place] Hematocrit (Bld) [Volume fraction] 30.2 % Low 36.0-46.0 [facility] Comment on above: Order Comment: Speci men Type: ARTERIAL BLOOD SPECIMENOrdering Facility: [facility] Address: [address] [place] [address] Performed By: #### A LLBG ####[facility]ATORYCLIA [id number] [address] [place] Hemoglobin (Bld) [Mass/Vol] 9.8 g/dL Low 11.5-15.5 [facility] Comment on above: Order Comment: Speci men Type: ARTERIAL BLOOD SPECIMENOrdering Facility: [facility] Address: [address] [place] [address] Performed By: #### A LLBG ####[facility]ATORYCLIA [id number] [address] Lactate [Moles/Vol] 0.8 mmol/L Normal 0.5-2.2 [facility] Comment on above: Order Comment: Speci men Type: ARTERIAL BLOOD SPECIMENOrdering Facility: [facility] Address: [address] [place] [address] Performed By: #### A LLBG ####[facility]ATORYCLIA [id number] [address] [place] Methemoglobin (Bld) [Mass fraction] 1.0 % Normal 0.0-1.5 [facility] Comment on above: Order Comment: Speci men Type: ARTERIAL BLOOD SPECIMENOrdering Facility: [facility] Address: [address] [place] [address] Performed By: #### A LLBG ####[facility]ORATORYCLIA [id number] [address] [place] O2 THERAPY Ventilator Normal [facility] Comment on above: Order Comment: Speci men Type: ARTERIAL BLOOD SPECIMENOrdering Facility: [facility] Address: [address] [address] Performed By: #### A LLBG ####[facility]ATORYCLIA [id number] [address] [place] Oxygen (Bld) [Partial pressure] 72 mm Hg Low 85-95 [facility] Comment on above: Order Comment: Speci men Type: ARTERIAL BLOOD SPECIMENOrdering Facility: [facility] Address: [address] [place] [address] Performed By: #### A LLBG ####[facility]ATORYCLIA [id number] [address] [place] Oxygen adjusted to patient's actual temperature (Bld) [Partial pressure] 69 mmHg Low 85-95 [facility] Comment on above: Order Comment: Speci men Type: ARTERIAL BLOOD SPECIMENOrdering Facility: [facility] Address: [address] [place] [address] Performed By: #### A LLBG ####[facility]ATORYCLIA [id number] [address] [place] Oxyhemoglobin (BldA) [Mass fraction] 91 % Low 95-98 [facility] Comment on above: Order Comment: Speci men Type: ARTERIAL BLOOD SPECIMENOrdering Facility: [facility] Address: [address] [place] [address] Performed By: #### A LLBG ####[facility]ATORYCLIA [id number] [address] [place] pH (Bld) 7.42 [pH] Normal 7.35-7.45 [facility] Comment on above: Order Comment: Speci men Type: ARTERIAL BLOOD SPECIMENOrdering Facility: [facility] Address: [address] [place] [address] Performed By: #### A LLBG ####[facility]ATORYCLIA [id number] [address] [place] pH adjusted to patient's actual temperature (Bld) 7.43 Normal 7.35-7.45 [facility] Comment on above: Order Comment: Speci men Type: ARTERIAL BLOOD SPECIMENOrdering Facility: [facility] Address: [address] [address] Performed By: #### A LLBG ####[facility]ATORYCLIA [id number] [address] [place] Potassium [Moles/Vol] 3.9 mmol/L Normal 3.5-5.0 [facility] Comment on above: Order Comment: Speci men Type: ARTERIAL BLOOD SPECIMENOrdering Facility: [facility] Address: [address] [address] Performed By: #### A LLBG ####[facility]ATORYCLIA [id number] [address] [place] Sodium [Moles/Vol] 137 mmol/L Normal 136-144 [facility] Comment on above: Order Comment: Speci men Type: ARTERIAL BLOOD SPECIMENOrdering Facility: [facility] Address: [address] [place] [address] Performed By: #### A LLBG ####[facility]ORATORYCLIA [id number] [place] [address] [place] Basic metabolic 2000 panelon 12-30-2022 Anion gap [Moles/Vol] 11 mmol/L Normal 9-18 [facility] Comment on above: Order Comment: Speci men Type: BLOOD SPECIMENOrdering Facility: [facility] Address: [address] [address] Performed By: #### 2 4321-2, 2776-12, ####[facility]ATORYCLIA [id number] [place] [address] [place] Calcium [Mass/Vol] 9.4 mg/dL Normal 8.5-10.2 [facility] Comment on above: Order Comment: Speci men Type: BLOOD SPECIMENOrdering Facility: [facility] Address: [address] [address] Performed By: #### 2 4321-2, 2776-12, ####[facility] LABORATORYCLIA [id number] [place], [place] [id number] [place] [address] [place] OF [facility] Chloride [Moles/Vol] 94 mmol/L Low 97-105 [facility] Comment on above: Order Comment: Speci men Type: BLOOD SPECIMENOrdering Facility: [facility] Address: [address] [place] [address] Performed By: #### 2 4321-2, 2777-1, ####[facility] LABORATORYCLIA [id number] [place] [id number] [facility] CO2 [Moles/Vol] 33 mmol/L High 22-30 [facility] Comment on above: Order Comment: Speci men Type: BLOOD SPECIMENOrdering Facility: [facility] Address: [address] [place] [address] Performed By: #### 2 4321-2, 2777-1, ####[facility] LABORATORYCLIA [id number] [address] Creatinine [Mass/Vol] 1.13 mg/dL High 0.58-0.96 [facility] Comment on above: Order Comment: Speci men Type: BLOOD SPECIMENOrdering Facility: [facility] Address: [address] [place] [address] Performed By: #### 2 4321-2, 27771, ####[facility] LABORATORYCLIA [id number] [address] ESTIMATED GLOMERULAR FILTRATION RATE 61 mL/min/1.73m??? Normal >=60 [facility] Comment on above: Order Comment: Speci men Type: BLOOD SPECIMENOrdering Facility: [facility] Address: [address] [place] [address] Result Comment: Gayle mated Glomerular Filtration Rate (eGFR) is calculated using the 2020 CKD-EPI creatinine equation. This equation utilizes serum creatinine, sex, and age as parameters. The creatinine assay has traceable calibration to isotope dilution-mass spectrometry. Refer to KDIGO guidelines for clinical interpretation. In patients with unstable renal function, e.g. those with acute kidney injury, the eGFR may not accurately reflect actual GFR. Performed By: #### 2 4321-2, 2777-, ####[facility] LABORATORYCLIA [id number] [place] [address] [place] Glucose [Mass/Vol] 155 mg/dL High 74-99 [facility] Comment on above: Order Comment: Roberto talbot Type: BLOOD SPECIMENOrdering Facility: [facility] Address: [address] [place] [id number] Result Comment: The [place] [employer] (ADA) provides guidance for cutoff values for fasting glucose and random glucose. The ADA defines fasting as no caloric intake for at least 8 hours. Fasting plasma glucose results between 100 to 125 mg/dL indicate increased risk for diabetes (prediabetes).Fasting plasma glucose results greater than or equal to 126 mg/dL meet the criteria for diagnosis of diabetes. In the absence of unequivocal hyperglycemia, results should be confirmed by repeat testing. In a patient with classic symptoms of hyperglycemia or hyperglycemic crisis, random plasma glucose results greater than or equal to 200 mg/dL meet the criteria for diagnosis of diabetes.Reference: Standards of Medical Care in Diabetes 2016, [place] [employer]. Diabetes Care. 2016.39(Suppl 1). Performed By: #### 2 4321-2, 2776-12, ####[facility]ORATORYCLIA [id number] [place] [address] [place] Potassium [Moles/Vol] 3.4 mmol/L Low 3.7-5.1 [facility] Comment on above: Order Comment: Roberto talbot Type: BLOOD SPECIMENOrdering Facility: [facility] Address: [address] [place] [address] Performed By: #### 2 4321-2, 2777, ####[facility]ORATORYCLIA [id number] [place] [address] [place] Sodium [Moles/Vol] 138 mmol/L Normal 136-144 [facility] Comment on above: Order Comment: Roberto talbot Type: BLOOD SPECIMENOrdering Facility: [facility] Address: [address] [place] [id number] Performed By: #### 2 4321-2, 2777-1, ####[facility]ATORYCLIA [id number] [address] [facility] Urea nitrogen [Mass/Vol] 22 mg/dL High 7-21 [facility] Comment on above: Order Comment: Speci men Type: BLOOD SPECIMENOrdering Facility: [facility] Address: [address] [place] [address] Performed By: #### 2 4321-2, 2776-, ####[facility]ATORYCLIA [id number] [address] [facility] CASE MANAGEMon 12-30-2022 CASE MANAGEM Normal [facility] CBC panel Auto (Bld)on 12-30 Erythrocyte distribution width (RBC) [Ratio] 16.1 % High 11.5-15.0 [facility] Comment on above: Order Comment: Speci men Type: BLOOD SPECIMENOrdering Facility: [facility] Address: [address] [place] [address] Performed By: #### 5 8410-2 ####[facility]ATORYCLIA [id number] [address] [place] Hematocrit (Bld) [Volume fraction] 30.3 % Low 36.0-46.0 [facility] Comment on above: Order Comment: Speci men Type: BLOOD SPECIMENOrdering Facility: [facility] Address: [address] [place] [address] Performed By: #### 5 8410-2 ####[facility]ORYCLIA [id number] [address] [place] Hemoglobin (Bld) [Mass/Vol] 9.0 g/dL Low 11.5-15.5 [facility] Comment on above: Order Comment: Speci men Type: BLOOD SPECIMENOrdering Facility: [facility] Address: [address] [place] [address] Performed By: #### 5 8410-2 ####[facility]ATORYCLIA [id number] [address] MCH (RBC) [Entitic mass] 27.8 pg Normal 26.0-34.0 [facility] Comment on above: Order Comment: Speci men Type: BLOOD SPECIMENOrdering Facility: [facility] Address: [address] [place] [address] Performed By: #### 5 8410-2 ####[facility]ATORYCLIA [id number] [address] MCHC (RBC) [Mass/Vol] 29.7 g/dL Low 30.5-36.0 [facility] Comment on above: Order Comment: Speci men Type: BLOOD SPECIMENOrdering Facility: [facility] Address: [address] [place] [address] Performed By: #### 5 8410-2 ####[facility]ATORYCLIA [id number] [address] MCV (RBC) [Entitic vol] 93.5 fL Normal 80.0-100.0 [facility] Comment on above: Order Comment: Speci men Type: BLOOD SPECIMENOrdering Facility: [facility] Address: [address] [place] [address] Performed By: #### 5 8410-2 ####[facility]ORYCLIA [id number] [address] Nucleated RBC (Bld) [#/Vol] 10*3/uL Normal <0.01 [facility] Comment on above: Order Comment: Speci men Type: BLOOD SPECIMENOrdering Facility: [facility] Address: [address] [place] [address] Performed By: #### 5 8410-2 ####[facility]ATORYCLIA [id number] [address] Platelet mean volume (Bld) [Entitic vol] 9.5 fL Normal 9.0-12.7 [facility] Comment on above: Order Comment: Speci men Type: BLOOD SPECIMENOrdering Facility: [facility] Address: [address] [place] [address] Performed By: #### 5 8410-2 ####[facility]ATORYCLIA [id number] [address] Platelets (Bld) [#/Vol] 401 10*3/uL High 150-400 [facility] Comment on above: Order Comment: Speci men Type: BLOOD SPECIMENOrdering Facility: [facility] Address: [address] [place] [address] Performed By: #### 5 8410-2 ####[facility]ATORYCLIA [id number] [address] RBC (Bld) [#/Vol] 3.24 10*6/uL Low 3.90-5.20 [facility] Comment on above: Order Comment: Speci men Type: BLOOD SPECIMENOrdering Facility: [facility] Address: [address] [place] [address] Performed By: #### 5 8410-2 ####[facility]ATORYCLIA [id number] [address] [facility] WBC (Bld) [#/Vol] 14.20 10*3/uL High 3.70-11.00 [facility] Comment on above: Order Comment: Speci men Type: BLOOD SPECIMENOrdering Facility: [facility] Address: [address] [place] [address] Performed By: #### 5 8410-2 ####[facility]ATORYCLIA [id number] [address] [facility] CONSULTon 12-30-2022 CONSULT Normal [facility] CONSULT PROGon 12-30-2022 CONSULT PROG Normal [facility] Calcium.ionized [Moles/Vol]o n 12-30-2022 Calcium.ionized (BldV) [Mass/Vol] 1.19 mmol/L Normal 1.08-1.30 [facility] Comment on above: Order Comment: Speci men Type: BLOOD SPECIMENOrdering Facility: [facility] Address: [address] [place] [address] Performed By: #### 1 995-0 ####[facility]ATORYCLIA [id number] [address] Calcium.ionized adjusted to pH 7.4 (Bld) [Moles/Vol] 1.23 mmol/L Normal 1.08-1.30 [facility] Comment on above: Order Comment: Speci men Type: BLOOD SPECIMENOrdering Facility: [facility] Address: [address] [place] [address] Performed By: #### 1 995-0 ####[facility]ATORYCLIA [id number] [address] Laboratory - Microbiology an d Antimicrobial susceptibilityOrdered By: Dr. Kaiser on 12-30-2022 Bacteria identified Cx Nom (Bld) No growth in 5 days. [facility] Magnesium SerPl-ncon 12-30 Magnesium [Mass/Vol] 1.7 mg/dL Normal 1.7-2.3 [facility] Comment on above: Order Comment: Speci men Type: BLOOD SPECIMENOrdering Facility: [facility] Address: [address] [place] [address] Performed By: #### 2 4321-2, 2776-12, ####[facility]ATORYCLIA [id number] [address] [place] NUTRITIONon 12-30-2022 NUTRITION Normal [facility] No Panel InformationOrdered By: Dr. Kaiser on 12-30-2022 No growth in 5 days. [facility] Phosphate SerPl-mCncon 12-30 Phosphate [Mass/Vol] 4.2 mg/dL Normal 2.7-4.8 [facility] Comment on above: Order Comment: Speci men Type: BLOOD SPECIMENOrdering Facility: [facility] Address: [place] [address] Performed By: #### 2 4321-2, 2777-, ####[facility] LABORATORYCLIA [id number] [place] [address] [place] XR CHEST 1V FRONTALon 2022 XR CHEST 1V FRONTAL Normal [facility] ALLIED HEALTHon 12-29-2022 ALLIED HEALTH Normal [facility] Bacteria Spec Resp Culton Bacteria identified Respiratory culture Nom (Unsp spec) CULTURE, RESPIRATORY: No growth 2 days GRAM STAIN: No organisms seen Many Polymorphonuclear leukocytes Rare Epithelial cells Normal [facility] Comment on above: Performed By: #### 3 2355-0 ####[facility]ORATORYCLIA [id number] [place] [id number] [place] Basic metabolic 2000 panelon 12-29-2022 Anion gap [Moles/Vol] 10 mmol/L Normal 9-18 [facility] Comment on above: Order Comment: Speci men Type: BLOOD SPECIMENOrdering Facility: [facility] Address: [address] [place] [address] Performed By: #### 2 4321-2, , 2776-12 ####[facility]ATORYCLIA [id number] [place] [address] [place] Calcium [Mass/Vol] 9.5 mg/dL Normal 8.5-10.2 [facility] Comment on above: Order Comment: Speci men Type: BLOOD SPECIMENOrdering Facility: [facility] Address: [address] [place] [address] Performed By: #### 2 4321-2, , 2776-12 ####[facility]ATORYCLIA [id number] [place] [address] [place] Chloride [Moles/Vol] 94 mmol/L Low 97-105 [facility] Comment on above: Order Comment: Speci men Type: BLOOD SPECIMENOrdering Facility: [facility] Address: [address] [place] [address] Performed By: #### 2 4321-2, , 2776-12 ####[facility]ATORYCLIA [id number] [place] [address] [place] CO2 [Moles/Vol] 33 mmol/L High 22-30 [facility] Comment on above: Order Comment: Speci men Type: BLOOD SPECIMENOrdering Facility: [facility] Address: [place] [address] Performed By: #### 2 4321-2, , 2776-12 ####[facility]ORATORYCLIA [id number] [address] [place] Creatinine [Mass/Vol] 1.17 mg/dL High 0.58-0.96 [facility] Comment on above: Order Comment: Speci men Type: BLOOD SPECIMENOrdering Facility: [facility] Address: [address] [place] [address] Performed By: #### 2 4321-2, , 2776-12 ####[facility]ATORYCLIA [id number] [address] [facility] ESTIMATED GLOMERULAR FILTRATION RATE 59 mL/min/1.73m??? Low >=60 [facility] Comment on above: Order Comment: Speci men Type: BLOOD SPECIMENOrdering Facility: [facility] Address: [address] [place] [address] Result Comment: Gayle mated Glomerular Filtration Rate (eGFR) is calculated using the 2020 CKD-EPI creatinine equation. This equation utilizes serum creatinine, sex, and age as parameters. The creatinine assay has traceable calibration to isotope dilution-mass spectrometry. Refer to KDIGO guidelines for clinical interpretation. In patients with unstable renal function, e.g. those with acute kidney injury, the eGFR may not accurately reflect actual GFR. Performed By: #### 2 4321-2, , 2776-12 ####[facility]ATORYCLIA [id number] [address] [place] Glucose [Mass/Vol] 267 mg/dL High 74-99 [facility] Comment on above: Order Comment: Speci men Type: BLOOD SPECIMENOrdering Facility: [facility] Address: [address] [place] [address] Result Comment: The [place] Diabetes [employer] (ADA) provides guidance for cutoff values for fasting glucose and random glucose. The ADA defines fasting as no caloric intake for at least 8 hours. Fasting plasma glucose results between 100 to 125 mg/dL indicate increased risk for diabetes (prediabetes).Fasting plasma glucose results greater than or equal to 126 mg/dL meet the criteria for diagnosis of diabetes. In the absence of unequivocal hyperglycemia, results should be confirmed by repeat testing. In a patient with classic symptoms of hyperglycemia or hyperglycemic crisis, random plasma glucose results greater than or equal to 200 mg/dL meet the criteria for diagnosis of diabetes.Reference: Standards of Medical Care in Diabetes 2016, [place] [employer]. Diabetes Care. 2016.39(Suppl 1). Performed By: #### 2 4321-2, , 2776-12 ####[facility]ATORYCLIA [id number] [place] [address] [place] Potassium [Moles/Vol] 4.2 mmol/L Normal 3.7-5.1 [facility] Comment on above: Order Comment: Roberto talbot Type: BLOOD SPECIMENOrdering Facility: [facility] Address: [address] [place] [address] Performed By: #### 2 4321-2, , 2776-12 ####[facility]PITALCLIA [id number] [place] [address] [place] Sodium [Moles/Vol] 137 mmol/L Normal 136-144 [facility] Comment on above: Order Comment: Roberto talbot Type: BLOOD SPECIMENOrdering Facility: [facility] Address: [address] [place] [address] Performed By: #### 2 4321-2, , 2776-12 ####[facility]ATORYCLIA [id number] [place] [address] [place] Urea nitrogen [Mass/Vol] 19 mg/dL Normal 7-21 [facility] Comment on above: Order Comment: Roberto men Type: BLOOD SPECIMENOrdering Facility: [facility] Address: [address] [place] [address] Performed By: #### 2 432-2, , 7-1 ####[facility]ORATORYCLIA [id number] [address] STATES [facility] CBC panel Auto (Bld)on 12-29 Erythrocyte distribution width (RBC) [Ratio] 16.2 % High 11.5-15.0 [facility] Comment on above: Order Comment: Speci men Type: BLOOD SPECIMENOrdering Facility: [facility] Address: [address] [place] [address] Performed By: #### 5 8410-2 ####[facility]ORATORYCLIA [id number] [address] Hematocrit (Bld) [Volume fraction] 29.8 % Low 36.0-46.0 [facility] Comment on above: Order Comment: Speci men Type: BLOOD SPECIMENOrdering Facility: [facility] Address: [address] [place] [address] Performed By: #### 5 8410-2 ####[facility]ATORYCLIA [id number] [address] [facility] Hemoglobin (Bld) [Mass/Vol] 8.9 g/dL Low 11.5-15.5 [facility] Comment on above: Order Comment: Speci men Type: BLOOD SPECIMENOrdering Facility: [facility] Address: [address] [place] [address] Performed By: #### 5 8410-2 ####[facility]ATORYCLIA [id number] [address] [place] [facility] MCH (RBC) [Entitic mass] 28.0 pg Normal 26.0-34.0 [facility] Comment on above: Order Comment: Speci men Type: BLOOD SPECIMENOrdering Facility: [facility] Address: [address] [place] [address] Performed By: #### 5 8410-2 ####[facility]ATORYCLIA [id number] [address] [place] [facility] MCHC (RBC) [Mass/Vol] 29.9 g/dL Low 30.5-36.0 [facility] Comment on above: Order Comment: Speci men Type: BLOOD SPECIMENOrdering Facility: [facility] Address: [address] [place] [address] Performed By: #### 5 8410-2 ####[facility]ATORYCLIA [id number] [address] MCV (RBC) [Entitic vol] 93.7 fL Normal 80.0-100.0 [facility] Comment on above: Order Comment: Speci men Type: BLOOD SPECIMENOrdering Facility: [facility] Address: [address] [place] [address] Performed By: #### 5 8410-2 ####[facility]ATORYCLIA [id number] [address] [facility] Nucleated RBC (Bld) [#/Vol] 0.02 10*3/uL High <0.01 [facility] Comment on above: Order Comment: Speci men Type: BLOOD SPECIMENOrdering Facility: [facility] Address: [address] [place] [address] Performed By: #### 5 8410-2 ####[facility]ATORYCLIA [id number] [address] Platelet mean volume (Bld) [Entitic vol] 9.5 fL Normal 9.0-12.7 [facility] Comment on above: Order Comment: Speci men Type: BLOOD SPECIMENOrdering Facility: [facility] Address: [address] [place] [address] Performed By: #### 5 8410-2 ####[facility]ATORYCLIA [id number] [address] Platelets (Bld) [#/Vol] 394 10*3/uL Normal 150-400 [facility] Comment on above: Order Comment: Speci men Type: BLOOD SPECIMENOrdering Facility: [facility] Address: [address] [place] [address] Performed By: #### 5 8410-2 ####[facility]ATORYCLIA [id number] [address] [place] RBC (Bld) [#/Vol] 3.18 10*6/uL Low 3.90-5.20 [facility] Comment on above: Order Comment: Speci men Type: BLOOD SPECIMENOrdering Facility: [facility] Address: [address] [place] [address] Performed By: #### 5 8410-2 ####[facility]ORATORYCLIA [id number] [address] STATES [facility] WBC (Bld) [#/Vol] 16.20 10*3/uL High 3.70-11.00 [facility] Comment on above: Order Comment: Speci men Type: BLOOD SPECIMENOrdering Facility: [facility] Address: [address] [place] [address] Performed By: #### 5 8410-2 ####[facility]ATORYCLIA [id number] [address] CONSULT PROGon 12-29-2022 CONSULT PROG Normal [facility] CONSULT PROG Normal [facility] Calcium.ionized [Moles/Vol]o n 12-29-2022 Calcium.ionized (BldV) [Mass/Vol] 1.16 mmol/L Normal 1.08-1.30 [facility] Comment on above: Order Comment: Speci men Type: BLOOD SPECIMENOrdering Facility: [facility] Address: [address] [place] [address] Performed By: #### 1 995-0 ####[facility]ATORYCLIA [id number] [address] Calcium.ionized adjusted to pH 7.4 (Bld) [Moles/Vol] 1.20 mmol/L Normal 1.08-1.30 [facility] Comment on above: Order Comment: Speci men Type: BLOOD SPECIMENOrdering Facility: [facility] Address: [address] [place] [address] Performed By: #### 1 995-0 ####[facility]ORATORYCLIA [id number] [place] [address] [place] Magnesium SerPl-ncon 12-29 Magnesium [Mass/Vol] 1.6 mg/dL Low 1.7-2.3 [facility] Comment on above: Order Comment: Speci men Type: BLOOD SPECIMENOrdering Facility: [facility] Address: [address] [place] [address] Performed By: #### 2 4321-2, , 2776-12 ####[facility]ATORYCLIA [id number] [place] [address] [place] Phosphate SerPl-mCncon 12-29 Phosphate [Mass/Vol] 4.6 mg/dL Normal 2.7-4.8 [facility] Comment on above: Order Comment: Speci men Type: BLOOD SPECIMENOrdering Facility: [facility] Address: [address] [place] [address] Performed By: #### 2 4321-2, , 2776-12 ####[facility]ORATORYCLIA [id number] [place] [address] [place] XR CHEST 1V FRONTALon 2022 XR CHEST 1V FRONTAL Normal [facility] Basic metabolic 2000 panelon 12-28-2022 Anion gap [Moles/Vol] 11 mmol/L Normal 9-18 [facility] Comment on above: Order Comment: Speci men Type: BLOOD SPECIMENOrdering Facility: [facility] Address: [address] [place] [address] Performed By: #### 2 4321-2, 2776-12 ####[facility]ATORYCLIA [id number] [place] [address] [place] Calcium [Mass/Vol] 9.0 mg/dL Normal 8.5-10.2 [facility] Comment on above: Order Comment: Speci men Type: BLOOD SPECIMENOrdering Facility: [facility] Address: [address] [place] [address] Performed By: #### 2 4321-2, 2776-12 ####[facility]ATORYCLIA [id number] [address] Chloride [Moles/Vol] 94 mmol/L Low 97-105 [facility] Comment on above: Order Comment: Speci men Type: BLOOD SPECIMENOrdering Facility: [facility] Address: [address] [place] [address] Performed By: #### 2 4321-2, 2776- ####[facility]ATORYCLIA [id number] [address] [facility] CO2 [Moles/Vol] 30 mmol/L Normal 22-30 [facility] Comment on above: Order Comment: Speci men Type: BLOOD SPECIMENOrdering Facility: [facility] Address: [address] [place] [address] Performed By: #### 2 432-2, 2776-12 ####[facility]ATORYCLIA [id number] [address] Creatinine [Mass/Vol] 1.10 mg/dL High 0.58-0.96 [facility] Comment on above: Order Comment: Speci men Type: BLOOD SPECIMENOrdering Facility: [facility] Address: [address] [place] [address] Performed By: #### 2 4321-2, 2776-12 ####[facility]ATORYCLIA [id number] [address] ESTIMATED GLOMERULAR FILTRATION RATE 63 mL/min/1.73m??? Normal >=60 [facility] Comment on above: Order Comment: Speci men Type: BLOOD SPECIMENOrdering Facility: [facility] Address: [address] [place] [address] Result Comment: Gayle mated Glomerular Filtration Rate (eGFR) is calculated using the 2020 CKD-EPI creatinine equation. This equation utilizes serum creatinine, sex, and age as parameters. The creatinine assay has traceable calibration to isotope dilution-mass spectrometry. Refer to KDIGO guidelines for clinical interpretation. In patients with unstable renal function, e.g. those with acute kidney injury, the eGFR may not accurately reflect actual GFR. Performed By: #### 2 4321-2, 2777- ####[facility]ATORYCLIA [id number] [place] [address] [place] Glucose [Mass/Vol] 247 mg/dL High 74-99 [facility] Comment on above: Order Comment: Specernesto men Type: BLOOD SPECIMENOrdering Facility: [facility] Address: [address] [address] Result Comment: The [place] Diabetes Association (ADA) provides guidance for cutoff values for fasting glucose and random glucose. The ADA defines fasting as no caloric intake for at least 8 hours. Fasting plasma glucose results between 100 to 125 mg/dL indicate increased risk for diabetes (prediabetes).Fasting plasma glucose results greater than or equal to 126 mg/dL meet the criteria for diagnosis of diabetes. In the absence of unequivocal hyperglycemia, results should be confirmed by repeat testing. In a patient with classic symptoms of hyperglycemia or hyperglycemic crisis, random plasma glucose results greater than or equal to 200 mg/dL meet the criteria for diagnosis of diabetes.Reference: Standards of Medical Care in Diabetes 2016, [place] Diabetes Association. Diabetes Care. 2016.39(Suppl 1). Performed By: #### 2 4321-2, 2777- ####[facility] LABORATORYCLIA [id number] [place] [address] [place] Potassium [Moles/Vol] 4.2 mmol/L Normal 3.7-5.1 [facility] Comment on above: Order Comment: Roberto talbot Type: BLOOD SPECIMENOrdering Facility: [facility] Address: [address] [address] Performed By: #### 2 4321-2, 2777- ####[facility] LABORATORYCLIA [id number] [place] [address] [place] Sodium [Moles/Vol] 135 mmol/L Low 136-144 [facility] Comment on above: Order Comment: Roberto talbot Type: BLOOD SPECIMENOrdering Facility: [facility] Address: [address] [address] Performed By: #### 2 4321-2, 277- ####[facility]ATORYCLIA [id number] [address] STATES [facility] Urea nitrogen [Mass/Vol] 11 mg/dL Normal 7-21 [facility] Comment on above: Order Comment: Speci men Type: BLOOD SPECIMENOrdering Facility: [facility] Address: [address] [place] [address] Performed By: #### 2 4321-2, 27705-31 ####[facility]ATORYCLIA [id number] [address] CBC panel Auto (Bld)on 12-28 Erythrocyte distribution width (RBC) [Ratio] 16.3 % High 11.5-15.0 [facility] Comment on above: Order Comment: Speci men Type: BLOOD SPECIMENOrdering Facility: [facility] Address: [address] [place] [address] Performed By: #### 5 8410-2 ####[facility]ORATORYCLIA [id number] [address] OF [facility] Hematocrit (Bld) [Volume fraction] 29.8 % Low 36.0-46.0 [facility] Comment on above: Order Comment: Speci men Type: BLOOD SPECIMENOrdering Facility: [facility] Address: [address] [place] [address] Performed By: #### 5 8410-2 ####[facility]ATORYCLIA [id number] [address] STATES OF [facility] Hemoglobin (Bld) [Mass/Vol] 8.9 g/dL Low 11.5-15.5 [facility] Comment on above: Order Comment: Speci men Type: BLOOD SPECIMENOrdering Facility: [facility] Address: [address] [place] [address] Performed By: #### 5 8410-2 ####[facility]ATORYCLIA [id number] [address] MCH (RBC) [Entitic mass] 28.2 pg Normal 26.0-34.0 [facility] Comment on above: Order Comment: Speci men Type: BLOOD SPECIMENOrdering Facility: [facility] Address: [address] [place] [address] Performed By: #### 5 8410-2 ####[facility]ATORYCLIA [id number] [address] MCHC (RBC) [Mass/Vol] 29.9 g/dL Low 30.5-36.0 [facility] Comment on above: Order Comment: Speci men Type: BLOOD SPECIMENOrdering Facility: [facility] Address: [address] [place] [address] Performed By: #### 5 8410-2 ####[facility]ATORYCLIA [id number] [address] STATES OF [facility] MCV (RBC) [Entitic vol] 94.3 fL Normal 80.0-100.0 [facility] Comment on above: Order Comment: Speci men Type: BLOOD SPECIMENOrdering Facility: [facility] Address: [address] [place] [address] Performed By: #### 5 8410-2 ####[facility]ORYCLIA [id number] [address] Nucleated RBC (Bld) [#/Vol] 0.02 10*3/uL High <0.01 [facility] Comment on above: Order Comment: Speci men Type: BLOOD SPECIMENOrdering Facility: [facility] Address: [address] [place] [address] Performed By: #### 5 8410-2 ####[facility]ORYCLIA [id number] [address] Platelet mean volume (Bld) [Entitic vol] 9.4 fL Normal 9.0-12.7 [facility] Comment on above: Order Comment: Speci men Type: BLOOD SPECIMENOrdering Facility: [facility] Address: [address] [place] [address] Performed By: #### 5 8410-2 ####[facility]ORYCLIA [id number] [address] [place] Platelets (Bld) [#/Vol] 359 10*3/uL Normal 150-400 [facility] Comment on above: Order Comment: Speci men Type: BLOOD SPECIMENOrdering Facility: [facility] Address: [address] [place] [address] Performed By: #### 5 8410-2 ####[facility]ATORYCLIA [id number] [place] [address] [place] RBC (Bld) [#/Vol] 3.16 10*6/uL Low 3.90-5.20 [facility] Comment on above: Order Comment: Speci men Type: BLOOD SPECIMENOrdering Facility: [facility] Address: [address] [place] [address] Performed By: #### 5 8410-2 ####[facility]ATORYCLIA [id number] [address] WBC (Bld) [#/Vol] 16.86 10*3/uL High 3.70-11.00 [facility] Comment on above: Order Comment: Speci men Type: BLOOD SPECIMENOrdering Facility: [facility] Address: [address] [place] [address] Performed By: #### 5 8410-2 ####[facility]ORYCLIA [id number] [address] [place] CONSULT PROGon 12-28-2022 CONSULT PROG Normal [facility] CONSULT PROG Normal [facility] Calcium.ionized [Moles/Vol]o n 12-28-2022 Calcium.ionized (BldV) [Mass/Vol] 0.99 mmol/L Low 1.08-1.30 [facility] Comment on above: Order Comment: Speci men Type: BLOOD SPECIMENOrdering Facility: [facility] Address: [address] [place] [address] Performed By: #### 1 995-0 ####[facility]ORYCLIA [id number] [address] Calcium.ionized adjusted to pH 7.4 (Bld) [Moles/Vol] 1.07 mmol/L Low 1.08-1.30 [facility] Comment on above: Order Comment: Speci men Type: BLOOD SPECIMENOrdering Facility: [facility] Address: [address] [place] [address] Performed By: #### 1 995-0 ####[facility]ORYCLIA [id number] [address] [place] [facility] Magnesium [Mass/Vol] 1.5 mg/dL Low 1.7-2.3 [facility] Comment on above: Order Comment: Speci men Type: BLOOD SPECIMENOrdering Facility: [facility] Address: [address] [place] [address] Performed By: #### 1 9123-9 ####[facility]ORYCLIA [id number] [address] [place] NURSING PROGon 12-28-2022 NURSING PROG Normal [facility] Phosphate SerPl-mCncon 12-28 Phosphate [Mass/Vol] 3.7 mg/dL Normal 2.7-4.8 [facility] Comment on above: Order Comment: Speci men Type: BLOOD SPECIMENOrdering Facility: [facility] Address: [address] [place] [address] Performed By: #### 2 4321-2, 2777-1 ####[facility]ATORYCLIA [id number] [address] [place] Prealbumin [Mass/Vol]on 12-02 Prealbumin Nephelometry [Mass/Vol] 10 mg/dL Low [facility] Comment on above: Order Comment: Speci men Type: BLOOD SPECIMENOrdering Facility: [facility] Address: [address] [place] [address] Performed By: #### 1 4338-8 ####[facility]ORYCLIA [id number] [address] [place] Vancomycin random [Mass/Vol] on 12-28-2022 Vancomycin [Mass/Vol] 10.3 ug/mL Normal 10.0-20.0 [facility] Comment on above: Order Comment: Speci men Type: BLOOD SPECIMENOrdering Facility: [facility] Address: [address] [place] [address] Result Comment: Refe rence ranges and high/low indicator flags are provided as general guidelines only. The treating physician must determine appropriate target levels/dosing based on the specific clinical situation. Performed By: #### 4 091-5 ####[facility]ORYCLIA [id number] [address] [place] XR CHEST 1V FRONTALon 2022 XR CHEST 1V FRONTAL Normal [facility] ALLIED HEALTHon 12-27-2022 ALLIED HEALTH Normal [facility] ALLIED HEALTH Normal [facility] ANES POSTPROC EVALon 023 ANES POSTPROC EVAL Normal [facility] ARTERIAL BLOOD GASESon 12-27 Base excess Calc (Bld) [Moles/Vol] 3 mmol/L High 0-2 [facility] Comment on above: Order Comment: Speci men Type: ARTERIAL BLOOD SPECIMENOrdering Facility: [facility] Address: [address] [place] [address] Performed By: #### A LLBG ####[facility]ATORYCLIA [id number] [address] [place] Body temperature 100.76 [degF] Normal [facility] Comment on above: Order Comment: Speci men Type: ARTERIAL BLOOD SPECIMENOrdering Facility: [facility] Address: [address] [place] [address] Performed By: #### A LLBG ####[facility]ORYCLIA [id number] [address] [place] Calcium.ionized (BldV) [Mass/Vol] 1.16 mmol/L Normal 1.08-1.30 [facility] Comment on above: Order Comment: Speci men Type: ARTERIAL BLOOD SPECIMENOrdering Facility: [facility] Address: [address] [place] [address] Performed By: #### A LLBG ####[facility]ORYCLIA [id number] [address] [place] Calcium.ionized adjusted to pH 7.4 (BldA) [Moles/Vol] 1.16 mmol/L Normal 1.08-1.30 [facility] Comment on above: Order Comment: Speci men Type: ARTERIAL BLOOD SPECIMENOrdering Facility: [facility] Address: [address] [place] [address] Performed By: #### A LLBG ####[facility]ORYCLIA [id number] [address] [place] Carboxyhemoglobin (BldA) [Mass fraction] 1.5 % Normal 0.0-2.0 [facility] Comment on above: Order Comment: Speci men Type: ARTERIAL BLOOD SPECIMENOrdering Facility: [facility] Address: [address] [place] [address] Result Comment: Carb oxyhemoglobin Reference Range for Smokers: 2.0-8.0% Performed By: #### A LLBG ####[facility]ORYCLIA [id number] [address] [place] Chloride [Moles/Vol] 104 mmol/L Normal 102-109 [facility] Comment on above: Order Comment: Speci men Type: ARTERIAL BLOOD SPECIMENOrdering Facility: [facility] Address: [address] [place] [address] Performed By: #### A LLBG ####[facility]ORYCLIA [id number] [address] [place] CO2 (Bld) [Partial pressure] 48 mm Hg High 36-46 [facility] Comment on above: Order Comment: Speci men Type: ARTERIAL BLOOD SPECIMENOrdering Facility: [facility] Address: [address] [place] [address] Performed By: #### A LLBG ####[facility]ATORYCLIA [id number] [address] [place] CO2 [Moles/Vol] 27 mmol/L Normal 22-28 [facility] Comment on above: Order Comment: Speci men Type: ARTERIAL BLOOD SPECIMENOrdering Facility: [facility] Address: [address] [address] Performed By: #### A LLBG ####[facility]ATORYCLIA [id number] [address] CO2 adjusted to patient's actual temperature (Bld) [Partial pressure] 51 mmHg High 36-46 [facility] Comment on above: Order Comment: Speci men Type: ARTERIAL BLOOD SPECIMENOrdering Facility: [facility] Address: [address] [place] [address] Performed By: #### A LLBG ####[facility]ORYCLIA [id number] [address] [place] Glucose [Mass/Vol] 267 mg/dL High 60-105 [facility] Comment on above: Order Comment: Speci men Type: ARTERIAL BLOOD SPECIMENOrdering Facility: [facility] Address: [address] [place] [address] Performed By: #### A LLBG ####[facility]ATORYCLIA [id number] [address] [place] [facility] HCO3 (Bld) [Moles/Vol] 28 mmol/L High 22-26 [facility] Comment on above: Order Comment: Speci men Type: ARTERIAL BLOOD SPECIMENOrdering Facility: [facility] Address: [address] [place] [address] Performed By: #### A LLBG ####[facility]ORYCLIA [id number] [address] [place] Hematocrit (Bld) [Volume fraction] 29.4 % Low 36.0-46.0 [facility] Comment on above: Order Comment: Speci men Type: ARTERIAL BLOOD SPECIMENOrdering Facility: [facility] Address: [address] [place] [address] Performed By: #### A LLBG ####[facility]ORYCLIA [id number] [address] [place] Hemoglobin (Bld) [Mass/Vol] 9.5 g/dL Low 11.5-15.5 [facility] Comment on above: Order Comment: Speci men Type: ARTERIAL BLOOD SPECIMENOrdering Facility: [facility] Address: [address] [place] [address] Performed By: #### A LLBG ####[facility]ATORYCLIA [id number] [address] [place] Lactate [Moles/Vol] 1.2 mmol/L Normal 0.5-2.2 [facility] Comment on above: Order Comment: Speci men Type: ARTERIAL BLOOD SPECIMENOrdering Facility: [facility] Address: [address] [place] [address] Performed By: #### A LLBG ####[facility]ATORYCLIA [id number] [address] Methemoglobin (Bld) [Mass fraction] 1.2 % Normal 0.0-1.5 [facility] Comment on above: Order Comment: Speci men Type: ARTERIAL BLOOD SPECIMENOrdering Facility: [facility] Address: [address] [place] [address] Performed By: #### A LLBG ####[facility]ATORYCLIA [id number] [address] [place] O2 THERAPY Ventilator Normal [facility] Comment on above: Order Comment: Speci men Type: ARTERIAL BLOOD SPECIMENOrdering Facility: [facility] Address: [address] [place] [address] Performed By: #### A LLBG ####[facility]ATORYCLIA [id number] [address] Oxygen (Bld) [Partial pressure] 93 mm Hg Normal 85-95 [facility] Comment on above: Order Comment: Speci men Type: ARTERIAL BLOOD SPECIMENOrdering Facility: [facility] Address: [address] [address] Performed By: #### A LLBG ####[facility]ATORYCLIA [id number] [address] Oxygen adjusted to patient's actual temperature (Bld) [Partial pressure] 100 mmHg High 85-95 [facility] Comment on above: Order Comment: Speci men Type: ARTERIAL BLOOD SPECIMENOrdering Facility: [facility] Address: [address] [place] [address] Performed By: #### A LLBG ####[facility]ATORYCLIA [id number] [address] Oxyhemoglobin (BldA) [Mass fraction] 94 % Low 95-98 [facility] Comment on above: Order Comment: Speci men Type: ARTERIAL BLOOD SPECIMENOrdering Facility: [facility] Address: [address] [place] [address] Performed By: #### A LLBG ####[facility]ATORYCLIA [id number] [address] [place] pH (Bld) 7.39 [pH] Normal 7.35-7.45 [facility] Comment on above: Order Comment: Speci men Type: ARTERIAL BLOOD SPECIMENOrdering Facility: [facility] Address: [address] [place] [address] Performed By: #### A LLBG ####[facility]ATORYCLIA [id number] [address] [place] [facility] pH adjusted to patient's actual temperature (Bld) 7.37 Normal 7.35-7.45 [facility] Comment on above: Order Comment: Speci men Type: ARTERIAL BLOOD SPECIMENOrdering Facility: [facility] Address: [address] [place] [address] Performed By: #### A LLBG ####[facility]ATORYCLIA [id number] [place] [address] [place] Potassium [Moles/Vol] 4.5 mmol/L Normal 3.5-5.0 [facility] Comment on above: Order Comment: Speci men Type: ARTERIAL BLOOD SPECIMENOrdering Facility: [facility] Address: [address] [place] [address] Performed By: #### A LLBG ####[facility]ATORYCLIA [id number] [place] [address] [place] Sodium [Moles/Vol] 136 mmol/L Normal 136-144 [facility] Comment on above: Order Comment: Speci men Type: ARTERIAL BLOOD SPECIMENOrdering Facility: [facility] Address: [address] [place] [address] Performed By: #### A LLBG ####[facility]ATORYCLIA [id number] [place] [address] [place] Basic metabolic 2000 panelon 12-27-2022 Anion gap [Moles/Vol] 10 mmol/L Normal 9-18 [facility] Comment on above: Order Comment: Speci men Type: BLOOD SPECIMENOrdering Facility: [facility] Address: [address] [place] [address] Performed By: #### 2 4321-01, 1988-03, 2776-12, ####[facility]ATORYCLIA [id number] [place] [address] [place] Calcium [Mass/Vol] 8.9 mg/dL Normal 8.5-10.2 [facility] Comment on above: Order Comment: Speci men Type: BLOOD SPECIMENOrdering Facility: [facility] Address: [address] [place] [address] Performed By: #### 2 4321-01, 1988-03, 2776-12, ####[facility]ATORYCLIA [id number] [place] [address] [place] Chloride [Moles/Vol] 98 mmol/L Normal 97-105 [facility] Comment on above: Order Comment: Speci men Type: BLOOD SPECIMENOrdering Facility: [facility] Address: [address] [place] [address] Performed By: #### 2 4321-01, 1988-03, 2776-12, ####[facility]ITALCL[facility] [id number] [place] [address] [place] CO2 [Moles/Vol] 28 mmol/L Normal 22-30 [facility] Comment on above: Order Comment: Speci men Type: BLOOD SPECIMENOrdering Facility: [facility] Address: [address] [place] [address] Performed By: #### 2 4321-01, 1988-03, 2776-12, ####[facility]ATORYCLIA [id number] [place] [address] [place] Creatinine [Mass/Vol] 0.91 mg/dL Normal 0.58-0.96 [facility] Comment on above: Order Comment: Speci men Type: BLOOD SPECIMENOrdering Facility: [facility] Address: [address] [place] [address] Performed By: #### 2 4321-01, 1988-03, ####[facility] CENTERIA [id number] [address] [place] ESTIMATED GLOMERULAR FILTRATION RATE 79 mL/min/1.73m??? Normal >=60 [facility] Comment on above: Order Comment: Speci men Type: BLOOD SPECIMENOrdering Facility: [facility] Address: [address] [place] [address] Result Comment: Gayle mated Glomerular Filtration Rate (eGFR) is calculated using the 2020 CKD-EPI creatinine equation. This equation utilizes serum creatinine, sex, and age as parameters. The creatinine assay has traceable calibration to isotope dilution-mass spectrometry. Refer to KDIGO guidelines for clinical interpretation. In patients with unstable renal function, e.g. those with acute kidney injury, the eGFR may not accurately reflect actual GFR. Performed By: #### 2 4321-01, 1988-03, 2776-12, ####[facility]ATORYCLIA [id number] [place] [address] [place] Glucose [Mass/Vol] 190 mg/dL High 74-99 [facility] Comment on above: Order Comment: Speci men Type: BLOOD SPECIMENOrdering Facility: [facility] Address: [address] [address] Result Comment: The [place] [employer] (ADA) provides guidance for cutoff values for fasting glucose and random glucose. The ADA defines fasting as no caloric intake for at least 8 hours. Fasting plasma glucose results between 100 to 125 mg/dL indicate increased risk for diabetes (prediabetes).Fasting plasma glucose results greater than or equal to 126 mg/dL meet the criteria for diagnosis of diabetes. In the absence of unequivocal hyperglycemia, results should be confirmed by repeat testing. In a patient with classic symptoms of hyperglycemia or hyperglycemic crisis, random plasma glucose results greater than or equal to 200 mg/dL meet the criteria for diagnosis of diabetes.Reference: Standards of Medical Care in Diabetes 2016, [place] [employer]. Diabetes Care. 2016.39(Suppl 1). Performed By: #### 2 4321-01, 1988-03, 2776-12, ####[facility]ATORYCLIA [id number] [place] [address] [place] Potassium [Moles/Vol] 4.5 mmol/L Normal 3.7-5.1 [facility] Comment on above: Order Comment: Roberto dahiana Type: BLOOD SPECIMENOrdering Facility: [facility] Address: [address] [address] Performed By: #### 2 4321-01, 1988-03, 2776-12, ####[facility]ATORYCLIA [id number] [place] [address] [place] Sodium [Moles/Vol] 136 mmol/L Normal 136-144 [facility] Comment on above: Order Comment: Migdaliai dahiana Type: BLOOD SPECIMENOrdering Facility: [facility] Address: [address] [address] Performed By: #### 2 4321-01, 1988-03, 2776-12, ####[facility]ATORYCLIA [id number] [place] [address] [place] Urea nitrogen [Mass/Vol] 12 mg/dL Normal 7-21 [facility] Comment on above: Order Comment: Speci men Type: BLOOD SPECIMENOrdering Facility: [facility] Address: [address] [place] [address] Performed By: #### 2 4321-2, 1987-5, 2777-1, 43608-9 ####[facility]ATORYCLIA [id number] [address] STATES OF [facility] CBC panel Auto (Bld)on 12-27 Erythrocyte distribution width (RBC) [Ratio] 16.2 % High 11.5-15.0 [facility] Comment on above: Order Comment: Speci men Type: BLOOD SPECIMENOrdering Facility: [facility] Address: [address] [place] [address] Performed By: #### 5 8410-2 ####[facility]ATORYCLIA [id number] [address] [place] [facility] Hematocrit (Bld) [Volume fraction] 28.4 % Low 36.0-46.0 [facility] Comment on above: Order Comment: Speci men Type: BLOOD SPECIMENOrdering Facility: [facility] Address: [address] [place] [address] Performed By: #### 5 8410-2 ####[facility]ATORYCLIA [id number] [address] [place] [facility] Hemoglobin (Bld) [Mass/Vol] 8.5 g/dL Low 11.5-15.5 [facility] Comment on above: Order Comment: Speci men Type: BLOOD SPECIMENOrdering Facility: [facility] Address: [address] [place] [address] Performed By: #### 5 8410-2 ####[facility] LABORATORYCLIA [id number] [address] [place] MCH (RBC) [Entitic mass] 28.1 pg Normal 26.0-34.0 [facility] Comment on above: Order Comment: Speci men Type: BLOOD SPECIMENOrdering Facility: [facility] Address: [address] [address] Performed By: #### 5 8410-2 ####[facility] LABORATORYCLIA [id number] [address] MCHC (RBC) [Mass/Vol] 29.9 g/dL Low 30.5-36.0 [facility] Comment on above: Order Comment: Speci men Type: BLOOD SPECIMENOrdering Facility: [facility] Address: [address] [address] Performed By: #### 5 8410-2 ####[facility]ORATORYCLIA [id number] [address] MCV (RBC) [Entitic vol] 93.7 fL Normal 80.0-100.0 [facility] Comment on above: Order Comment: Speci men Type: BLOOD SPECIMENOrdering Facility: [facility] Address: [address] [place] [address] Performed By: #### 5 8410-2 ####[facility] LABORATORYCLIA [id number] [address] Nucleated RBC (Bld) [#/Vol] 10*3/uL Normal <0.01 [facility] Comment on above: Order Comment: Speci men Type: BLOOD SPECIMENOrdering Facility: [facility] Address: [address] [place] [address] Performed By: #### 5 8410-2 ####[facility]ATORYCLIA [id number] [address] Platelet mean volume (Bld) [Entitic vol] 9.4 fL Normal 9.0-12.7 [facility] Comment on above: Order Comment: Speci men Type: BLOOD SPECIMENOrdering Facility: [facility] Address: [address] [place] [address] Performed By: #### 5 8410-2 ####[facility]ATORYCLIA [id number] [address] Platelets (Bld) [#/Vol] 333 10*3/uL Normal 150-400 [facility] Comment on above: Order Comment: Speci men Type: BLOOD SPECIMENOrdering Facility: [facility] Address: [address] [place] [address] Performed By: #### 5 8410-2 ####[facility] LABORATORYCLIA [id number] [place] [address] [place] RBC (Bld) [#/Vol] 3.03 10*6/uL Low 3.90-5.20 [facility] Comment on above: Order Comment: Speci men Type: BLOOD SPECIMENOrdering Facility: [facility] Address: [address] [place] [address] Performed By: #### 5 8410-2 ####[facility]ATORYCLIA [id number] [address] STATES OF [facility] WBC (Bld) [#/Vol] 16.79 10*3/uL High 3.70-11.00 [facility] Comment on above: Order Comment: Speci men Type: BLOOD SPECIMENOrdering Facility: [facility] Address: [address] [place] [address] Performed By: #### 5 8410-2 ####[facility] LABORATORYCLIA [id number] [address] OF [facility] CONSULT PROGon 12-27-2022 CONSULT PROG Normal [facility] CRP SerPl-mCncon 12-27-2022 CRP [Mass/Vol] 12.9 mg/dL High <0.9 [facility] Comment on above: Order Comment: Speci men Type: BLOOD SPECIMENOrdering Facility: [facility] Address: [address] [place] [address] Performed By: #### 2 4321-2, 1987-, 2777-1, 27914-8 ####[facility]ATORYCLIA [id number] [address] [place] Calcium.ionized [Moles/Vol]o n 12-27-2022 Calcium.ionized (BldV) [Mass/Vol] 1.06 mmol/L Low 1.08-1.30 [facility] Comment on above: Order Comment: Speci men Type: BLOOD SPECIMENOrdering Facility: [facility] Address: [address] [place] [address] Performed By: #### 1 995-0 ####[facility]ATORYCLIA [id number] [place] [address] [place] Calcium.ionized adjusted to pH 7.4 (Bld) [Moles/Vol] 1.11 mmol/L Normal 1.08-1.30 [facility] Comment on above: Order Comment: Speci men Type: BLOOD SPECIMENOrdering Facility: [facility] Address: [address] [place] [address] Performed By: #### 1 995-0 ####[facility]ATORYCLIA [id number] [place] [address] [place] Magn[facility] 12-27 Magnesium [Mass/Vol] 1.7 mg/dL Normal 1.7-2.3 [facility] Comment on above: Order Comment: Speci men Type: BLOOD SPECIMENOrdering Facility: [facility] Address: [address] [address] Performed By: #### 2 432-2, 1988-03, 2776-12, ####[facility]ATORYCLIA [id number] [place] [address] [place] Phosphate SerPl-mCncon 12-27 Phosphate [Mass/Vol] 4.4 mg/dL Normal 2.7-4.8 [facility] Comment on above: Order Comment: Speci men Type: BLOOD SPECIMENOrdering Facility: [facility] Address: [address] [address] Performed By: #### 2 4321-2, 1988-03, 2776-12, ####[facility]ATORYCLIA [id number] [place] [address] [place] XR CHEST 1V FRONTALon 2022 XR CHEST 1V FRONTAL Normal [facility] ALLIED HEALTHon 12-26-2022 ALLIED HEALTH Normal [facility] ALLIED HEALTH Normal [facility] ANES PRE-OPon 12-26-2022 ANES PRE-OP Normal [facility] Basic metabolic 2000 panelon 12-26-2022 Anion gap [Moles/Vol] 10 mmol/L Normal 9-18 [facility] Comment on above: Order Comment: Speci men Type: BLOOD SPECIMENOrdering Facility: [facility] Address: [address] [address] Performed By: #### 2 4321-2, 1-8, 15715-3, 2776-1 ####[facility]ATORYCLIA [id number] [place] [address] [place] Calcium [Mass/Vol] 9.1 mg/dL Normal 8.5-10.2 [facility] Comment on above: Order Comment: Speci men Type: BLOOD SPECIMENOrdering Facility: [facility] Address: [address] [place] [address] Performed By: #### 2 4321-2, 2570-8, 22388-4, 2776-1 ####[facility]ATORYCLIA [id number] [place] [address] [place] Chloride [Moles/Vol] 101 mmol/L Normal 97-105 [facility] Comment on above: Order Comment: Speci men Type: BLOOD SPECIMENOrdering Facility: [facility] Address: [address] [address] Performed By: #### 2 4321-2, 257-8, 60419-1, 2776-1 ####[facility]ATORYCLIA [id number] [place] [address] [place] CO2 [Moles/Vol] 26 mmol/L Normal 22-30 [facility] Comment on above: Order Comment: Speci men Type: BLOOD SPECIMENOrdering Facility: [facility] Address: [address] [address] Performed By: #### 2 4321-2, 257-8, , 2776-12 ####[facility]ITALCLIA [id number] [place] [address] [place] [facility] Creatinine [Mass/Vol] 1.14 mg/dL High 0.58-0.96 [facility] Comment on above: Order Comment: Roberto talbot Type: BLOOD SPECIMENOrdering Facility: [facility] Address: [address] [address] Performed By: #### 2 4321-2, 2570-8, , 2776-12 ####[facility]PITALCLIA [id number] [place] [address] [place] ESTIMATED GLOMERULAR FILTRATION RATE 61 mL/min/1.73m??? Normal >=60 [facility] Comment on above: Order Comment: Roberto talbot Type: BLOOD SPECIMENOrdering Facility: [facility] Address: [address] [place] [address] Result Comment: Gayle mated Glomerular Filtration Rate (eGFR) is calculated using the 2020 CKD-EPI creatinine equation. This equation utilizes serum creatinine, sex, and age as parameters. The creatinine assay has traceable calibration to isotope dilution-mass spectrometry. Refer to KDIGO guidelines for clinical interpretation. In patients with unstable renal function, e.g. those with acute kidney injury, the eGFR may not accurately reflect actual GFR. Performed By: #### 2 4321-2, 2570-8, , 2776-12 ####[facility] LABORATORYIA [id number] [address] [id number] [place] STATES OF [facility] Glucose [Mass/Vol] 246 mg/dL High 74-99 [facility] Comment on above: Order Comment: Roberto dahiana Type: BLOOD SPECIMENOrdering Facility: [facility] Address: [address] [place] [address] Result Comment: The [place] Diabetes Association (ADA) provides guidance for cutoff values for fasting glucose and random glucose. The ADA defines fasting as no caloric intake for at least 8 hours. Fasting plasma glucose results between 100 to 125 mg/dL indicate increased risk for diabetes (prediabetes).Fasting plasma glucose results greater than or equal to 126 mg/dL meet the criteria for diagnosis of diabetes. In the absence of unequivocal hyperglycemia, results should be confirmed by repeat testing. In a patient with classic symptoms of hyperglycemia or hyperglycemic crisis, random plasma glucose results greater than or equal to 200 mg/dL meet the criteria for diagnosis of diabetes.Reference: Standards of Medical Care in Diabetes 2016, [place] [employer] Association. Diabetes Care. 2016.39(Suppl 1). Performed By: #### 2 4321-2, 2570-8, 85802-3, 2776- ####[facility]ATORYCLIA [id number] [place] [address] [place] Potassium [Moles/Vol] 4.4 mmol/L Normal 3.7-5.1 [facility] Comment on above: Order Comment: Roberto talobt Type: BLOOD SPECIMENOrdering Facility: [facility] Address: [address] [place] [address] Performed By: #### 2 4321-2, 8, , 2776- ####[facility]ITALCLIA [id number] [address] STATES OF [facility] Sodium [Moles/Vol] 137 mmol/L Normal 136-144 [facility] Comment on above: Order Comment: Roberto talbot Type: BLOOD SPECIMENOrdering Facility: [facility] Address: [address] [place] [address] Performed By: #### 2 4321-2, 2570-8, , 2776- ####[facility]ATORYCLIA [id number] [address] [place] Urea nitrogen [Mass/Vol] 20 mg/dL Normal 7-21 [facility] Comment on above: Order Comment: Roberto talbot Type: BLOOD SPECIMENOrdering Facility: [facility] Address: [address] [place] [address] Performed By: #### 2 4321-2, 2570-8, 73779-5, 2776-1 ####[facility]ATORYCLIA [id number] [address] [id number] [place] CASE MGT INIT ASSESon 2022 CASE MGT INIT ASSES Normal [facility] CBC panel Auto (Bld)on 12-26 Erythrocyte distribution width (RBC) [Ratio] 16.4 % High 11.5-15.0 [facility] Comment on above: Order Comment: Speci men Type: BLOOD SPECIMENOrdering Facility: [facility] Address: [address] [place] [address] Performed By: #### 5 8410-2 ####[facility]ATORYCLIA [id number] [address] OF [facility] Hematocrit (Bld) [Volume fraction] 29.4 % Low 36.0-46.0 [facility] Comment on above: Order Comment: Speci men Type: BLOOD SPECIMENOrdering Facility: [facility] Address: [address] [place] [address] Performed By: #### 5 8410-2 ####[facility]ORYCLIA [id number] [address] STATES OF [facility] Hemoglobin (Bld) [Mass/Vol] 8.8 g/dL Low 11.5-15.5 [facility] Comment on above: Order Comment: Speci men Type: BLOOD SPECIMENOrdering Facility: [facility] Address: [address] [place] [address] Performed By: #### 5 8410-2 ####[facility]ORYCLIA [id number] [address] [place] MCH (RBC) [Entitic mass] 28.7 pg Normal 26.0-34.0 [facility] Comment on above: Order Comment: Speci men Type: BLOOD SPECIMENOrdering Facility: [facility] Address: [address] [place] [address] Performed By: #### 5 8410-2 ####[facility]ORYCLIA [id number] [address] [place] MCHC (RBC) [Mass/Vol] 29.9 g/dL Low 30.5-36.0 [facility] Comment on above: Order Comment: Speci men Type: BLOOD SPECIMENOrdering Facility: [facility] Address: [address] [place] [address] Performed By: #### 5 8410-2 ####[facility]ATORYCLIA [id number] [address] MCV (RBC) [Entitic vol] 95.8 fL Normal 80.0-100.0 [facility] Comment on above: Order Comment: Speci men Type: BLOOD SPECIMENOrdering Facility: [facility] Address: [address] [place] [address] Performed By: #### 5 8410-2 ####[facility]ORYCLIA [id number] [address] Nucleated RBC (Bld) [#/Vol] 10*3/uL Normal <0.01 [facility] Comment on above: Order Comment: Speci men Type: BLOOD SPECIMENOrdering Facility: [facility] Address: [address] [place] [address] Performed By: #### 5 8410-2 ####[facility]ORYCLIA [id number] [address] Platelet mean volume (Bld) [Entitic vol] 9.4 fL Normal 9.0-12.7 [facility] Comment on above: Order Comment: Speci men Type: BLOOD SPECIMENOrdering Facility: [facility] Address: [address] [place] [address] Performed By: #### 5 8410-2 ####[facility]ATORYCLIA [id number] [address] Platelets (Bld) [#/Vol] 304 10*3/uL Normal 150-400 [facility] Comment on above: Order Comment: Speci men Type: BLOOD SPECIMENOrdering Facility: [facility] Address: [address] [place] [address] Performed By: #### 5 8410-2 ####[facility]ORYCLIA [id number] [address] RBC (Bld) [#/Vol] 3.07 10*6/uL Low 3.90-5.20 [facility] Comment on above: Order Comment: Speci men Type: BLOOD SPECIMENOrdering Facility: [facility] Address: [address] [place] [address] Performed By: #### 5 8410-2 ####[facility]ATORYCLIA [id number] [address] OF [facility] WBC (Bld) [#/Vol] 17.12 10*3/uL High 3.70-11.00 [facility] Comment on above: Order Comment: Speci men Type: BLOOD SPECIMENOrdering Facility: [facility] Address: [address] [place] [address] Performed By: #### 5 8410-2 ####[facility]ATORYCLIA [id number] [address] CONSULT PROGon 12-26-2022 CONSULT PROG Normal [facility] Calcium.ionized [Moles/Vol]o n 12-26-2022 Calcium.ionized (BldV) [Mass/Vol] 1.22 mmol/L Normal 1.08-1.30 [facility] Comment on above: Order Comment: Speci men Type: BLOOD SPECIMENOrdering Facility: [facility] Address: [address] [place] [address] Performed By: #### 1 995-0 ####[facility]ATORYCLIA [id number] [address] Calcium.ionized adjusted to pH 7.4 (Bld) [Moles/Vol] 1.21 mmol/L Normal 1.08-1.30 [facility] Comment on above: Order Comment: Speci men Type: BLOOD SPECIMENOrdering Facility: [facility] Address: [address] [place] [address] Performed By: #### 1 995-0 ####[facility]ATORYCLIA [id number] [address] HCG ( test) Ql (U)o n 12-26-2022 Specific gravity (U) [Rel density] 1.020 Normal 1.006-1.029 [facility] Comment on above: Order Comment: Speci men Type: URINE SPECIMENOrdering Facility: [facility] Address: [address] [place] [address] Result Comment: If s pecific gravity is <1.005 then results may be falsely negative. Serum HCG is recommended. Performed By: #### 2 106-3 ####[facility]ITALCLIA [id number] [place] [address] [place] HCG Preg Ur Qlon 12-26-2022 HCG ( test) Ql (U) Negative Normal Negative [facility] Comment on above: Order Comment: Roberto talbot Type: URINE SPECIMENOrdering Facility: [facility] Address: [address] [place] [address] Result Comment: This test is intended to aid in the early detection of . Very dilute urine samples, as indicated by a low specific gravity, may not contain hr representative levels of hCG. This test detects intact hCG only. This test does not reliably detect hCG degradation products, including free-beta subunit and beta-core fragment. Therefore, this test may show reduced reactivity in urine after 8 weeks gestation. A number of conditions other than , including trophoblastic disease and certain non-trophoblastic neoplasms cause elevated levels of hCG. As with any assay employing mouse antibodies, the possibility exists for interference by human anti-mouse antibodies (HAMA) in the specimen. The test provides a presumptive diagnosis for . Performed By: #### 2 106-3 ####[facility]ORYCLIA [id number] [place] [address] [place] Magnesium SerPl-mCncon 12-26 Magnesium [Mass/Vol] 1.4 mg/dL Low 1.7-2.3 [facility] Comment on above: Order Comment: Roberto talbot Type: BLOOD SPECIMENOrdering Facility: [facility] Address: [address] [place] [address] Performed By: #### 2 4321-2, 2571-8, 97891-0, 2777-1 ####[facility]ITALCLIA [id number] [place] [id number] [facility] OPERATIVE NOon 12-26-2022 OPERATIVE NO Normal [facility] Phosphate SerPl-mCncon 12-26 Phosphate [Mass/Vol] 3.0 mg/dL Normal 2.7-4.8 [facility] Comment on above: Order Comment: Speci men Type: BLOOD SPECIMENOrdering Facility: [facility] Address: [address] [place] [address] Performed By: #### 2 4321-2, 2570-8, , 2776-12 ####[facility]ORYCLIA [id number] [address] Trigl SerPl-mCncon Triglyceride [Mass/Vol] 198 mg/dL High <150 [facility] Comment on above: Order Comment: Speci men Type: BLOOD SPECIMENOrdering Facility: [facility] Address: [address] [place] [address] Result Comment: <150 mg/dL, Normal 150-199 mg/dL, Borderline high 200-499 mg/dL, High>499 mg/dL, Very highReference:1. National Cholesterol Education Program ATP III Guideline At-A-Glance Quick Desk Reference: National Heart, Lung, and Blood [place]. National Institutes of Health. 2001: NIH Publication No. 01-3305. Performed By: #### 2 4321-2, 2570-8, , 2776-12 ####[facility]ORYCLIA [id number] [address] Triglyceride [Mass/Vol]on FASTING TIME 0 hrs Normal [facility] Comment on above: Order Comment: Speci men Type: BLOOD SPECIMENOrdering Facility: [facility] Address: [address] [place] [address] Result Comment: impa ct 1.5 tube feed continuous Performed By: #### 2 4321-2, 2570-8, , 2776- ####[facility]ORYCLIA [id number] [place] [address] [place] XR CHEST 1V FRONTALon 2022 XR CHEST 1V FRONTAL Normal [facility] ALLIED HEALTHon 12-25-2022 ALLIED HEALTH Normal [facility] ALLIED HEALTH Normal [facility] ANES POSTPROC EVALon 023 ANES POSTPROC EVAL Normal [facility] ANES PRE-OPon 12-25-2022 ANES PRE-OP Normal [facility] ARTERIAL BLOOD GASESon 12-25 Base excess Calc (Bld) [Moles/Vol] 0 mmol/L Normal 0-2 [facility] Comment on above: Order Comment: Speci men Type: ARTERIAL BLOOD SPECIMENOrdering Facility: [facility] Address: [address] [place] [address] Performed By: #### A LLBG ####[facility]ORYCLIA [id number] [address] [place] Body temperature 98.96 [degF] Normal [facility] Comment on above: Order Comment: Speci men Type: ARTERIAL BLOOD SPECIMENOrdering Facility: [facility] Address: [address] [place] [address] Performed By: #### A LLBG ####[facility]ORYCLIA [id number] [address] [place] Calcium.ionized (BldV) [Mass/Vol] 1.18 mmol/L Normal 1.08-1.30 [facility] Comment on above: Order Comment: Speci men Type: ARTERIAL BLOOD SPECIMENOrdering Facility: [facility] Address: [address] [place] [address] Performed By: #### A LLBG ####[facility]ORYCLIA [id number] [address] [place] Calcium.ionized adjusted to pH 7.4 (BldA) [Moles/Vol] 1.15 mmol/L Normal 1.08-1.30 [facility] Comment on above: Order Comment: Speci men Type: ARTERIAL BLOOD SPECIMENOrdering Facility: [facility] Address: [address] [address] Performed By: #### A LLBG ####[facility]ORYCLIA [id number] [address] [place] Carboxyhemoglobin (BldA) [Mass fraction] <1.0 Normal 0.0-2.0 [facility] Comment on above: Order Comment: Speci men Type: ARTERIAL BLOOD SPECIMENOrdering Facility: [facility] Address: [address] [place] [address] Result Comment: Carb oxyhemoglobin Reference Range for Smokers: 2.0-8.0% Performed By: #### A LLBG ####[facility]ORYCLIA [id number] [address] [place] Chloride [Moles/Vol] 102 mmol/L Normal 102-109 [facility] Comment on above: Order Comment: Speci men Type: ARTERIAL BLOOD SPECIMENOrdering Facility: [facility] Address: [address] [place] [address] Performed By: #### A LLBG ####[facility]ORYCLIA [id number] [address] [place] CO2 (Bld) [Partial pressure] 48 mm Hg High 36-46 [facility] Comment on above: Order Comment: Speci men Type: ARTERIAL BLOOD SPECIMENOrdering Facility: [facility] Address: [address] [place] [address] Performed By: #### A LLBG ####[facility]ORYCLIA [id number] [address] [place] CO2 [Moles/Vol] 24 mmol/L Normal 22-28 [facility] Comment on above: Order Comment: Speci men Type: ARTERIAL BLOOD SPECIMENOrdering Facility: [facility] Address: [address] [place] [address] Performed By: #### A LLBG ####[facility]ORYCLIA [id number] [address] [place] CO2 adjusted to patient's actual temperature (Bld) [Partial pressure] 48 mmHg High 36-46 [facility] Comment on above: Order Comment: Speci men Type: ARTERIAL BLOOD SPECIMENOrdering Facility: [facility] Address: [address] [address] Performed By: #### A LLBG ####[facility]ORYCLIA [id number] [address] [place] Glucose [Mass/Vol] 188 mg/dL High 60-105 [facility] Comment on above: Order Comment: Speci men Type: ARTERIAL BLOOD SPECIMENOrdering Facility: [facility] Address: [address] [place] [address] Performed By: #### A LLBG ####[facility]ORYCLIA [id number] [place] [address] [place] HCO3 (Bld) [Moles/Vol] 26 mmol/L Normal 22-26 [facility] Comment on above: Order Comment: Speci men Type: ARTERIAL BLOOD SPECIMENOrdering Facility: [facility] Address: [address] [address] Performed By: #### A LLBG ####[facility]ORYCLIA [id number] [address] [place] Hematocrit (Bld) [Volume fraction] 28.1 % Low 36.0-46.0 [facility] Comment on above: Order Comment: Speci men Type: ARTERIAL BLOOD SPECIMENOrdering Facility: [facility] Address: [address] [address] Performed By: #### A LLBG ####[facility] LABORATORYCLIA [id number] [place] [address] [place] Hemoglobin (Bld) [Mass/Vol] 9.1 g/dL Low 11.5-15.5 [facility] Comment on above: Order Comment: Speci men Type: ARTERIAL BLOOD SPECIMENOrdering Facility: [facility] Address: [address] [address] Performed By: #### A LLBG ####[facility] LABORATORYCLIA [id number] [address] Lactate [Moles/Vol] 0.8 mmol/L Normal 0.5-2.2 [facility] Comment on above: Order Comment: Speci men Type: ARTERIAL BLOOD SPECIMENOrdering Facility: [facility] Address: [address] [address] Performed By: #### A LLBG ####[facility] LABORATORYCLIA [id number] [address] [place] Methemoglobin (Bld) [Mass fraction] % Normal 0.0-1.5 [facility] Comment on above: Order Comment: Speci men Type: ARTERIAL BLOOD SPECIMENOrdering Facility: [facility] Address: [address] [place] [address] Performed By: #### A LLBG ####[facility] LABORATORYCLIA [id number] [address] O2 THERAPY Ventilator Normal [facility] Comment on above: Order Comment: Speci men Type: ARTERIAL BLOOD SPECIMENOrdering Facility: [facility] Address: [address] [place] [address] Performed By: #### A LLBG ####[facility] LABORATORYCLIA [id number] [address] [place] Oxygen (Bld) [Partial pressure] 174 mm Hg High 85-95 [facility] Comment on above: Order Comment: Speci men Type: ARTERIAL BLOOD SPECIMENOrdering Facility: [facility] Address: [address] [address] Performed By: #### A LLBG ####[facility] LABORATORYCLIA [id number] [address] Oxygen adjusted to patient's actual temperature (Bld) [Partial pressure] 175 mmHg High 85-95 [facility] Comment on above: Order Comment: Speci men Type: ARTERIAL BLOOD SPECIMENOrdering Facility: [facility] Address: [address] [address] Performed By: #### A LLBG ####[facility]ORATORYCLIA [id number] [address] [place] Oxyhemoglobin (BldA) [Mass fraction] 96 % Normal 95-98 [facility] Comment on above: Order Comment: Speci men Type: ARTERIAL BLOOD SPECIMENOrdering Facility: [facility] Address: [address] [place] [address] Performed By: #### A LLBG ####[facility] LABORATORYCLIA [id number] [place] [address] [place] pH (Bld) 7.35 [pH] Normal 7.35-7.45 [facility] Comment on above: Order Comment: Speci men Type: ARTERIAL BLOOD SPECIMENOrdering Facility: [facility] Address: [address] [place] [address] Performed By: #### A LLBG ####[facility] LABORATORYCLIA [id number] [address] pH adjusted to patient's actual temperature (Bld) 7.35 Normal 7.35-7.45 [facility] Comment on above: Order Comment: Speci men Type: ARTERIAL BLOOD SPECIMENOrdering Facility: [facility] Address: [address] [place] [address] Performed By: #### A LLBG ####[facility] LABORATORYCLIA [id number] [address] [place] Potassium [Moles/Vol] 4.9 mmol/L Normal 3.5-5.0 [facility] Comment on above: Order Comment: Speci men Type: ARTERIAL BLOOD SPECIMENOrdering Facility: [facility] Address: [address] [place] [address] Performed By: #### A LLBG ####[facility] LABORATORYCLIA [id number] [address] [place] Sodium [Moles/Vol] 137 mmol/L Normal 136-144 [facility] Comment on above: Order Comment: Speci men Type: ARTERIAL BLOOD SPECIMENOrdering Facility: [facility] Address: [address] [place] [address] Performed By: #### A LLBG ####[facility] LABORATORYCLIA [id number] [address] Base deficit (BldA) [Moles/Vol] -2 mmol/L Normal -2-0 [facility] Comment on above: Order Comment: Speci men Type: ARTERIAL BLOOD SPECIMENOrdering Facility: [facility] Address: [address] [place] [address] Performed By: #### A LLBG ####[facility] LABORATORYCLIA [id number] [address] [place] Body temperature 98.78 [degF] Normal [facility] Comment on above: Order Comment: Speci men Type: ARTERIAL BLOOD SPECIMENOrdering Facility: [facility] Address: [address] [place] [address] Performed By: #### A LLBG ####[facility] LABORATORYCLIA [id number] [address] STATES [facility] Calcium.ionized (BldV) [Mass/Vol] 1.06 mmol/L Low 1.08-1.30 [facility] Comment on above: Order Comment: Speci men Type: ARTERIAL BLOOD SPECIMENOrdering Facility: [facility] Address: [address] [place] [address] Performed By: #### A LLBG ####[facility] LABORATORYCLIA [id number] [address] Calcium.ionized adjusted to pH 7.4 (BldA) [Moles/Vol] 1.01 mmol/L Low 1.08-1.30 [facility] Comment on above: Order Comment: Speci men Type: ARTERIAL BLOOD SPECIMENOrdering Facility: [facility] Address: [address] [place] [address] Performed By: #### A LLBG ####[facility] LABORATORYCLIA [id number] [address] [place] Carboxyhemoglobin (BldA) [Mass fraction] 2.2 % High 0.0-2.0 [facility] Comment on above: Order Comment: Speci men Type: ARTERIAL BLOOD SPECIMENOrdering Facility: [facility] Address: [address] [place] [address] Result Comment: Carb oxyhemoglobin Reference Range for Smokers: 2.0-8.0% Performed By: #### A LLBG ####[facility] LABORATORYCLIA [id number] [place] [address] [place] Chloride [Moles/Vol] 110 mmol/L High 102-109 [facility] Comment on above: Order Comment: Speci men Type: ARTERIAL BLOOD SPECIMENOrdering Facility: [facility] Address: [address] [place] [address] Performed By: #### A LLBG ####[facility] LABORATORYCLIA [id number] [address] [place] CO2 (Bld) [Partial pressure] 47 mm Hg High 36-46 [facility] Comment on above: Order Comment: Speci men Type: ARTERIAL BLOOD SPECIMENOrdering Facility: [facility] Address: [address] [address] Performed By: #### A LLBG ####[facility] LABORATORYCLIA [id number] [address] [place] CO2 [Moles/Vol] 22 mmol/L Normal 22-28 [facility] Comment on above: Order Comment: Speci men Type: ARTERIAL BLOOD SPECIMENOrdering Facility: [facility] Address: [address] [address] Performed By: #### A LLBG ####[facility] LABORATORYCLIA [id number] [address] [place] CO2 adjusted to patient's actual temperature (Bld) [Partial pressure] 47 mmHg High 36-46 [facility] Comment on above: Order Comment: Speci men Type: ARTERIAL BLOOD SPECIMENOrdering Facility: [facility] Address: [address] [address] Performed By: #### A LLBG ####[facility] LABORATORYCLIA [id number] [address] [place] Glucose [Mass/Vol] 162 mg/dL High 60-105 [facility] Comment on above: Order Comment: Speci men Type: ARTERIAL BLOOD SPECIMENOrdering Facility: [facility] Address: [address] [place] [address] Performed By: #### A LLBG ####[facility] LABORATORYCLIA [id number] [address] [place] HCO3 (Bld) [Moles/Vol] 23 mmol/L Normal 22-26 [facility] Comment on above: Order Comment: Speci men Type: ARTERIAL BLOOD SPECIMENOrdering Facility: [facility] Address: [address] [place] [address] Performed By: #### A LLBG ####[facility] LABORATORYCLIA [id number] [address] [place] Hematocrit (Bld) [Volume fraction] 31.8 % Low 36.0-46.0 [facility] Comment on above: Order Comment: Speci men Type: ARTERIAL BLOOD SPECIMENOrdering Facility: [facility] Address: [address] [place] [address] Performed By: #### A LLBG ####[facility] LABORATORYCLIA [id number] [address] [place] Hemoglobin (Bld) [Mass/Vol] 10.3 g/dL Low 11.5-15.5 [facility] Comment on above: Order Comment: Speci men Type: ARTERIAL BLOOD SPECIMENOrdering Facility: [facility] Address: [address] [place] [address] Performed By: #### A LLBG ####[facility] LABORATORYCLIA [id number] [address] [place] Lactate [Moles/Vol] 0.6 mmol/L Normal 0.5-2.2 [facility] Comment on above: Order Comment: Speci men Type: ARTERIAL BLOOD SPECIMENOrdering Facility: [facility] Address: [address] [place] [address] Performed By: #### A LLBG ####[facility] LABORATORYCLIA [id number] [address] Methemoglobin (Bld) [Mass fraction] 1.1 % Normal 0.0-1.5 [facility] Comment on above: Order Comment: Speci men Type: ARTERIAL BLOOD SPECIMENOrdering Facility: [facility] Address: [address] [address] Performed By: #### A LLBG ####[facility] LABORATORYCLIA [id number] [address] [place] O2 THERAPY Ventilator Normal [facility] Comment on above: Order Comment: Speci men Type: ARTERIAL BLOOD SPECIMENOrdering Facility: [facility] Address: [address] [place] [address] Performed By: #### A LLBG ####[facility] LABORATORYCLIA [id number] [address] [place] Oxygen (Bld) [Partial pressure] 136 mm Hg High 85-95 [facility] Comment on above: Order Comment: Speci men Type: ARTERIAL BLOOD SPECIMENOrdering Facility: [facility] Address: [address] [place] [address] Performed By: #### A LLBG ####[facility]ORATORYCLIA [id number] [address] Oxygen adjusted to patient's actual temperature (Bld) [Partial pressure] 137 mmHg High 85-95 [facility] Comment on above: Order Comment: Speci men Type: ARTERIAL BLOOD SPECIMENOrdering Facility: [facility] Address: [address] [address] Performed By: #### A LLBG ####[facility] LABORATORYCLIA [id number] [address] [place] Oxyhemoglobin (BldA) [Mass fraction] 95 % Normal 95-98 [facility] Comment on above: Order Comment: Speci men Type: ARTERIAL BLOOD SPECIMENOrdering Facility: [facility] Address: [address] [address] Performed By: #### A LLBG ####[facility] LABORATORYCLIA [id number] [address] [place] pH (Bld) 7.32 [pH] Low 7.35-7.45 [facility] Comment on above: Order Comment: Speci men Type: ARTERIAL BLOOD SPECIMENOrdering Facility: [facility] Address: [address] [place] [address] Performed By: #### A LLBG ####[facility] LABORATORYCLIA [id number] [address] pH adjusted to patient's actual temperature (Bld) 7.32 Low 7.35-7.45 [facility] Comment on above: Order Comment: Speci men Type: ARTERIAL BLOOD SPECIMENOrdering Facility: [facility] Address: [address] [place] [address] Performed By: #### A LLBG ####[facility] LABORATORYCLIA [id number] [address] [place] Potassium [Moles/Vol] 4.3 mmol/L Normal 3.5-5.0 [facility] Comment on above: Order Comment: Speci men Type: ARTERIAL BLOOD SPECIMENOrdering Facility: [facility] Address: [address] [place] [address] Performed By: #### A LLBG ####[facility] LABORATORYCLIA [id number] [address] [place] Sodium [Moles/Vol] 135 mmol/L Low 136-144 [facility] Comment on above: Order Comment: Speci men Type: ARTERIAL BLOOD SPECIMENOrdering Facility: [facility] Address: [address] [place] [address] Performed By: #### A LLBG ####[facility] LABORATORYCLIA [id number] [place] [address] [place] Base deficit (BldA) [Moles/Vol] -1 mmol/L Normal -2-0 [facility] Comment on above: Order Comment: Speci men Type: ARTERIAL BLOOD SPECIMENOrdering Facility: [facility] Address: [address] [place] [address] Performed By: #### A LLBG ####[facility] LABORATORYCLIA [id number] [address] Body temperature 97.52 [degF] Normal [facility] Comment on above: Order Comment: Speci men Type: ARTERIAL BLOOD SPECIMENOrdering Facility: [facility] Address: [address] [place] [address] Performed By: #### A LLBG ####[facility] LABORATORYCLIA [id number] [address] [place] Calcium.ionized (BldV) [Mass/Vol] 1.18 mmol/L Normal 1.08-1.30 [facility] Comment on above: Order Comment: Speci men Type: ARTERIAL BLOOD SPECIMENOrdering Facility: [facility] Address: [address] [place] [address] Performed By: #### A LLBG ####[facility] LABORATORYCLIA [id number] [address] Calcium.ionized adjusted to pH 7.4 (BldA) [Moles/Vol] 1.08 mmol/L Normal 1.08-1.30 [facility] Comment on above: Order Comment: Speci men Type: ARTERIAL BLOOD SPECIMENOrdering Facility: [facility] Address: [address] [place] [address] Performed By: #### A LLBG ####[facility] LABORATORYCLIA [id number] [address] [place] Carboxyhemoglobin (BldA) [Mass fraction] 3.0 % High 0.0-2.0 [facility] Comment on above: Order Comment: Speci men Type: ARTERIAL BLOOD SPECIMENOrdering Facility: [facility] Address: [address] [place] [address] Result Comment: Carb oxyhemoglobin Reference Range for Smokers: 2.0-8.0% Performed By: #### A LLBG ####[facility]ORATORYCLIA [id number] [place] [address] [place] Chloride [Moles/Vol] 104 mmol/L Normal 102-109 [facility] Comment on above: Order Comment: Speci men Type: ARTERIAL BLOOD SPECIMENOrdering Facility: [facility] Address: [address] [address] Performed By: #### A LLBG ####[facility] LABORATORYCLIA [id number] [address] [place] CO2 (Bld) [Partial pressure] 63 mm Hg High 36-46 [facility] Comment on above: Order Comment: Speci men Type: ARTERIAL BLOOD SPECIMENOrdering Facility: [facility] Address: [address] [place] [address] Performed By: #### A LLBG ####[facility] LABORATORYCLIA [id number] [address] [place] CO2 [Moles/Vol] 25 mmol/L Normal 22-28 [facility] Comment on above: Order Comment: Speci men Type: ARTERIAL BLOOD SPECIMENOrdering Facility: [facility] Address: [address] [place] [address] Performed By: #### A LLBG ####[facility] LABORATORYCLIA [id number] [address] [place] CO2 adjusted to patient's actual temperature (Bld) [Partial pressure] 61 mmHg High 36-46 [facility] Comment on above: Order Comment: Speci men Type: ARTERIAL BLOOD SPECIMENOrdering Facility: [facility] Address: [address] [place] [address] Performed By: #### A LLBG ####[facility] LABORATORYCLIA [id number] [address] [place] FIO2 80 % Normal [facility] Comment on above: Order Comment: Speci men Type: ARTERIAL BLOOD SPECIMENOrdering Facility: [facility] Address: [address] [address] Performed By: #### A LLBG ####[facility]ORATORYCLIA [id number] [address] [place] Glucose [Mass/Vol] 162 mg/dL High 60-105 [facility] Comment on above: Order Comment: Speci men Type: ARTERIAL BLOOD SPECIMENOrdering Facility: [facility] Address: [address] [place] [address] Performed By: #### A LLBG ####[facility] LABORATORYCLIA [id number] [place] [address] [place] HCO3 (Bld) [Moles/Vol] 26 mmol/L Normal 22-26 [facility] Comment on above: Order Comment: Speci men Type: ARTERIAL BLOOD SPECIMENOrdering Facility: [facility] Address: [address] [place] [address] Performed By: #### A LLBG ####[facility] LABORATORYCLIA [id number] [address] [place] Hematocrit (Bld) [Volume fraction] 29.1 % Low 36.0-46.0 [facility] Comment on above: Order Comment: Speci men Type: ARTERIAL BLOOD SPECIMENOrdering Facility: [facility] Address: [address] [place] [address] Performed By: #### A LLBG ####[facility] LABORATORYCLIA [id number] [address] [place] Hemoglobin (Bld) [Mass/Vol] 9.4 g/dL Low 11.5-15.5 [facility] Comment on above: Order Comment: Speci men Type: ARTERIAL BLOOD SPECIMENOrdering Facility: [facility] Address: [address] [place] [address] Performed By: #### A LLBG ####[facility] LABORATORYCLIA [id number] [address] [place] Lactate [Moles/Vol] 0.5 mmol/L Normal 0.5-2.2 [facility] Comment on above: Order Comment: Speci men Type: ARTERIAL BLOOD SPECIMENOrdering Facility: [facility] Address: [address] [place] [address] Performed By: #### A LLBG ####[facility]ORATORYCLIA [id number] [address] Methemoglobin (Bld) [Mass fraction] 1.1 % Normal 0.0-1.5 [facility] Comment on above: Order Comment: Speci men Type: ARTERIAL BLOOD SPECIMENOrdering Facility: [facility] Address: [address] [address] Performed By: #### A LLBG ####[facility]ORATORYCLIA [id number] [address] O2 THERAPY Ventilator Normal [facility] Comment on above: Order Comment: Speci men Type: ARTERIAL BLOOD SPECIMENOrdering Facility: [facility] Address: [address] [place] [address] Performed By: #### A LLBG ####[facility]ORATORYCLIA [id number] [address] Oxygen (Bld) [Partial pressure] 91 mm Hg Normal 85-95 [facility] Comment on above: Order Comment: Speci men Type: ARTERIAL BLOOD SPECIMENOrdering Facility: [facility] Address: [address] [place] [address] Performed By: #### A LLBG ####[facility]ORATORYCLIA [id number] [address] Oxygen adjusted to patient's actual temperature (Bld) [Partial pressure] 88 mmHg Normal 85-95 [facility] Comment on above: Order Comment: Speci men Type: ARTERIAL BLOOD SPECIMENOrdering Facility: [facility] Address: [address] [address] Performed By: #### A LLBG ####[facility]ORATORYCLIA [id number] [address] [place] Oxyhemoglobin (BldA) [Mass fraction] 92 % Low 95-98 [facility] Comment on above: Order Comment: Speci men Type: ARTERIAL BLOOD SPECIMENOrdering Facility: [facility] Address: [address] [place] [address] Performed By: #### A LLBG ####[facility]ATORYCLIA [id number] [address] PEEP/CPAP 10 cmH2O Normal [facility] Comment on above: Order Comment: Speci men Type: ARTERIAL BLOOD SPECIMENOrdering Facility: [facility] Address: [address] [place] [address] Performed By: #### A LLBG ####[facility]ORATORYCLIA [id number] [address] [place] pH (Bld) 7.24 [pH] Low 7.35-7.45 [facility] Comment on above: Order Comment: Speci men Type: ARTERIAL BLOOD SPECIMENOrdering Facility: [facility] Address: [address] [place] [address] Performed By: #### A LLBG ####[facility]ORATORYCLIA [id number] [address] pH adjusted to patient's actual temperature (Bld) 7.25 Low 7.35-7.45 [facility] Comment on above: Order Comment: Speci men Type: ARTERIAL BLOOD SPECIMENOrdering Facility: [facility] Address: [address] [place] [address] Performed By: #### A LLBG ####[facility]ORATORYCLIA [id number] [address] [place] Potassium [Moles/Vol] 4.9 mmol/L Normal 3.5-5.0 [facility] Comment on above: Order Comment: Speci men Type: ARTERIAL BLOOD SPECIMENOrdering Facility: [facility] Address: [address] [place] [address] Performed By: #### A LLBG ####[facility] LABORATORYCLIA [id number] [address] SET VENTILATOR RESPIRATORY RATE (BPM) 16 BPM Normal [facility] Comment on above: Order Comment: Speci men Type: ARTERIAL BLOOD SPECIMENOrdering Facility: [facility] Address: [address] [address] Performed By: #### A LLBG ####[facility]ORATORYCLIA [id number] [address] Sodium [Moles/Vol] 134 mmol/L Low 136-144 [facility] Comment on above: Order Comment: Speci men Type: ARTERIAL BLOOD SPECIMENOrdering Facility: [facility] Address: [address] [address] Performed By: #### A LLBG ####[facility] LABORATORYCLIA [id number] [address] [place] Bacteria Bld Culton 12-25-19 Bacteria identified Cx Nom (Bld) CULTURE, BLOOD: No growth 5 days Normal [facility] Comment on above: Performed By: #### 6 00-7 ####[facility]ORATORYCLIA [id number] [address] Bacteria identified Cx Nom (Bld) CULTURE, BLOOD: No growth 5 days Normal [facility] Comment on above: Performed By: #### 6 00-7 ####[facility] LABORATORYCLIA [id number] [address] OF [facility] Bacteria Spec Anaerobe Culto n 12-25-2022 Bacteria identified Anaer cx Nom (Unsp spec) CULTURE, ANAEROBE: Moderate mixed anaerobic nando. No Bacteroides fragilis group isolated. No Clostridium perfringens isolated. Normal [facility] Comment on above: Performed By: #### 1 1475-1, 22225-7, 63-3 ####[facility]ORATORYCLIA [id number] [address] Bacteria Tiss Culton 023 Bacteria identified Cx Nom (Tiss) ORGANISM ID: 1 Few Streptococcus anginosus ORGANISM ID: 2 Rare skin nando GRAM STAIN: Few Gram positive cocci Rare Gram negative bacilli No Polymorphonuclear Leukocytes Abnormal [facility] Comment on above: Performed By: #### 1 1475-1, 03548-5, 635-3 ####[facility]ORATORYCLIA [id number] [place] [address] [place] Basic metabolic 2000 panelon 12-25-2022 Anion gap [Moles/Vol] 11 mmol/L Normal 9-18 [facility] Comment on above: Order Comment: Speci men Type: BLOOD SPECIMENOrdering Facility: [facility] Address: [address] [place] [address] Performed By: #### 2 4321-2 ####[facility]ORATORYCLIA [id number] [place] [address] [place] Calcium [Mass/Vol] 8.3 mg/dL Low 8.5-10.2 [facility] Comment on above: Order Comment: Speci men Type: BLOOD SPECIMENOrdering Facility: [facility] Address: [address] [place] [address] Performed By: #### 2 4321-2 ####[facility]ORATORYCLIA [id number] [address] [place] Chloride [Moles/Vol] 100 mmol/L Normal 97-105 [facility] Comment on above: Order Comment: Speci men Type: BLOOD SPECIMENOrdering Facility: [facility] Address: [address] [place] [address] Performed By: #### 2 4321-2 ####[facility]ORATORYCLIA [id number] [place] [address] [place] CO2 [Moles/Vol] 26 mmol/L Normal 22-30 [facility] [facility] Comment on above: Order Comment: Speci men Type: BLOOD SPECIMENOrdering Facility: [facility] Address: [address] [place] [address] Performed By: #### 2 4321-2 ####[facility]ORATORYCLIA [id number] [place] [address] [place] Creatinine [Mass/Vol] 1.69 mg/dL High 0.58-0.96 [facility] Comment on above: Order Comment: Speci men Type: BLOOD SPECIMENOrdering Facility: [facility] Address: [address] [address] Performed By: #### 2 4321-2 ####[facility]ITAL[facility] [id number] [place] [id number] [place] ESTIMATED GLOMERULAR FILTRATION RATE 38 mL/min/1.73m??? Low >=60 [facility] Comment on above: Order Comment: Specernesto talbot Type: BLOOD SPECIMENOrdering Facility: [facility] Address: [address] [place] [address] Result Comment: Gayle mated Glomerular Filtration Rate (eGFR) is calculated using the 2020 CKD-EPI creatinine equation. This equation utilizes serum creatinine, sex, and age as parameters. The creatinine assay has traceable calibration to isotope dilution-mass spectrometry. Refer to KDIGO guidelines for clinical interpretation. In patients with unstable renal function, e.g. those with acute kidney injury, the eGFR may not accurately reflect actual GFR. Performed By: #### 2 4321-2 ####[facility] CENTERIA [id number] [place] [address] [place] Glucose [Mass/Vol] 123 mg/dL High 74-99 [facility] Comment on above: Order Comment: Specernesto talbot Type: BLOOD SPECIMENOrdering Facility: [facility] Address: [address] [place] [address] Result Comment: The [place] Diabetes Association (ADA) provides guidance for cutoff values for fasting glucose and random glucose. The ADA defines fasting as no caloric intake for at least 8 hours. Fasting plasma glucose results between 100 to 125 mg/dL indicate increased risk for diabetes (prediabetes).Fasting plasma glucose results greater than or equal to 126 mg/dL meet the criteria for diagnosis of diabetes. In the absence of unequivocal hyperglycemia, results should be confirmed by repeat testing. In a patient with classic symptoms of hyperglycemia or hyperglycemic crisis, random plasma glucose results greater than or equal to 200 mg/dL meet the criteria for diagnosis of diabetes.Reference: Standards of Medical Care in Diabetes 2016, [place] [employer] Association. Diabetes Care. 2016.39(Suppl 1). Performed By: #### 2 4321-2 ####[facility] LABORATORYCLIA [id number] [place] [id number] [place] Potassium [Moles/Vol] 5.1 mmol/L Normal 3.7-5.1 [facility] Comment on above: Order Comment: Speci men Type: BLOOD SPECIMENOrdering Facility: [facility] Address: [address] [place] [address] Performed By: #### 2 4321-2 ####[facility] LABORATORYCLIA [id number] [place] [address] [place] Sodium [Moles/Vol] 137 mmol/L Normal 136-144 [facility] Comment on above: Order Comment: Speci men Type: BLOOD SPECIMENOrdering Facility: [facility] Address: [address] [place] [address] Performed By: #### 2 4321-2 ####[facility] LABORATORYCLIA [id number] [place] [address] [place] Urea nitrogen [Mass/Vol] 30 mg/dL High 7-21 [facility] Comment on above: Order Comment: Speci men Type: BLOOD SPECIMENOrdering Facility: [facility] Address: [address] [place] [address] Performed By: #### 2 4321-2 ####[facility]ORYCLIA [id number] [place] [address] [place] Anion gap [Moles/Vol] 10 mmol/L Normal 9-18 [facility] Comment on above: Order Comment: Speci men Type: BLOOD SPECIMENOrdering Facility: [facility] Address: [address] [address] Performed By: #### 2 4321-2 ####[facility] LABORATORYCLIA [id number] [place] [address] [place] Calcium [Mass/Vol] 8.6 mg/dL Normal 8.5-10.2 [facility] Comment on above: Order Comment: Speci men Type: BLOOD SPECIMENOrdering Facility: [facility] Address: [address] [place] [address] Performed By: #### 2 4321-2 ####[facility] LABORATORYCLIA [id number] [address] [place] Chloride [Moles/Vol] 101 mmol/L Normal 97-105 [facility] Comment on above: Order Comment: Speci men Type: BLOOD SPECIMENOrdering Facility: [facility] Address: [address] [place] [address] Performed By: #### 2 4321-2 ####[facility]ATORYCLIA [id number] [place] [address] [place] CO2 [Moles/Vol] 26 mmol/L Normal 22-30 [facility] Comment on above: Order Comment: Speci men Type: BLOOD SPECIMENOrdering Facility: [facility] Address: [address] [place] [address] Performed By: #### 2 4321-2 ####[facility] CENTERIA [id number] [address] [place] Creatinine [Mass/Vol] 1.52 mg/dL High 0.58-0.96 [facility] Comment on above: Order Comment: Speci men Type: BLOOD SPECIMENOrdering Facility: [facility] Address: [address] [place] [address] Performed By: #### 2 4321-2 ####[facility]ORATORYCLIA [id number] [address] ESTIMATED GLOMERULAR FILTRATION RATE 43 mL/min/1.73m??? Low >=60 [facility] Comment on above: Order Comment: Speci men Type: BLOOD SPECIMENOrdering Facility: [facility] Address: [address] [place] [address] Result Comment: Gayle mated Glomerular Filtration Rate (eGFR) is calculated using the 2020 CKD-EPI creatinine equation. This equation utilizes serum creatinine, sex, and age as parameters. The creatinine assay has traceable calibration to isotope dilution-mass spectrometry. Refer to KDIGO guidelines for clinical interpretation. In patients with unstable renal function, e.g. those with acute kidney injury, the eGFR may not accurately reflect actual GFR. Performed By: #### 2 4321-2 ####[facility]ORATORYCLIA [id number] [place] [address] [place] Glucose [Mass/Vol] 92 mg/dL Normal 74-99 [facility] Comment on above: Order Comment: Speci men Type: BLOOD SPECIMENOrdering Facility: [facility] Address: [address] [place] [address] Result Comment: The [place] Diabetes Association (ADA) provides guidance for cutoff values for fasting glucose and random glucose. The ADA defines fasting as no caloric intake for at least 8 hours. Fasting plasma glucose results between 100 to 125 mg/dL indicate increased risk for diabetes (prediabetes).Fasting plasma glucose results greater than or equal to 126 mg/dL meet the criteria for diagnosis of diabetes. In the absence of unequivocal hyperglycemia, results should be confirmed by repeat testing. In a patient with classic symptoms of hyperglycemia or hyperglycemic crisis, random plasma glucose results greater than or equal to 200 mg/dL meet the criteria for diagnosis of diabetes.Reference: Standards of Medical Care in Diabetes 2016, [place] [employer]. Diabetes Care. 2016.39(Suppl 1). Performed By: #### 2 4321-2 ####[facility]ATORYCLIA [id number] [place] [address] [place] Potassium [Moles/Vol] 4.9 mmol/L Normal 3.7-5.1 [facility] Comment on above: Order Comment: Roberto dahiana Type: BLOOD SPECIMENOrdering Facility: [facility] Address: [address] [place] [address] Performed By: #### 2 4321-2 ####[facility]ATORYCLIA [id number] [place] [address] [place] Sodium [Moles/Vol] 137 mmol/L Normal 136-144 [facility] Comment on above: Order Comment: Speci men Type: BLOOD SPECIMENOrdering Facility: [facility] Address: [address] [place] [address] Performed By: #### 2 4321-2 ####[facility]ATORYCLIA [id number] [place] [address] [place] Urea nitrogen [Mass/Vol] 29 mg/dL High 7-21 [facility] Comment on above: Order Comment: Speci men Type: BLOOD SPECIMENOrdering Facility: [facility] Address: [address] [place] [address] Performed By: #### 2 4321-2 ####[facility]ORATORYCLIA [id number] [address] STATES OF [facility] CBC panel Auto (Bld)on 12-25 Erythrocyte distribution width (RBC) [Ratio] 16.6 % High 11.5-15.0 [facility] Comment on above: Order Comment: Speci men Type: BLOOD SPECIMENOrdering Facility: [facility] Address: [address] [place] [address] Performed By: #### 5 8410-2 ####[facility]ATORYCLIA [id number] [address] STATES OF [facility] Hematocrit (Bld) [Volume fraction] 32.5 % Low 36.0-46.0 [facility] Comment on above: Order Comment: Speci men Type: BLOOD SPECIMENOrdering Facility: [facility] Address: [address] [place] [address] Performed By: #### 5 8410-2 ####[facility]ORYCLIA [id number] [address] STATES [facility] Hemoglobin (Bld) [Mass/Vol] 9.7 g/dL Low 11.5-15.5 [facility] Comment on above: Order Comment: Speci men Type: BLOOD SPECIMENOrdering Facility: [facility] Address: [address] [place] [address] Performed By: #### 5 8410-2 ####[facility]ATORYCLIA [id number] [address] [place] MCH (RBC) [Entitic mass] 29.2 pg Normal 26.0-34.0 [facility] Comment on above: Order Comment: Speci men Type: BLOOD SPECIMENOrdering Facility: [facility] Address: [address] [place] [address] Performed By: #### 5 8410-2 ####[facility]ORYCLIA [id number] [address] [place] MCHC (RBC) [Mass/Vol] 29.8 g/dL Low 30.5-36.0 [facility] Comment on above: Order Comment: Speci men Type: BLOOD SPECIMENOrdering Facility: [facility] Address: [address] [place] [address] Performed By: #### 5 8410-2 ####[facility]ORYCLIA [id number] [address] MCV (RBC) [Entitic vol] 97.9 fL Normal 80.0-100.0 [facility] Comment on above: Order Comment: Speci men Type: BLOOD SPECIMENOrdering Facility: [facility] Address: [address] [place] [address] Performed By: #### 5 8410-2 ####[facility]ORYCLIA [id number] [address] STATES OF [facility] Nucleated RBC (Bld) [#/Vol] 0.03 10*3/uL High <0.01 [facility] Comment on above: Order Comment: Speci men Type: BLOOD SPECIMENOrdering Facility: [facility] Address: [address] [place] [address] Performed By: #### 5 8410-2 ####[facility]ORYCLIA [id number] [address] [place] Platelet mean volume (Bld) [Entitic vol] 9.5 fL Normal 9.0-12.7 [facility] Comment on above: Order Comment: Speci men Type: BLOOD SPECIMENOrdering Facility: [facility] Address: [address] [place] [address] Performed By: #### 5 8410-2 ####[facility]ORYCLIA [id number] [address] [place] Platelets (Bld) [#/Vol] 323 10*3/uL Normal 150-400 [facility] Comment on above: Order Comment: Speci men Type: BLOOD SPECIMENOrdering Facility: [facility] Address: [address] [place] [address] Performed By: #### 5 8410-2 ####[facility]ORYCLIA [id number] [address] RBC (Bld) [#/Vol] 3.32 10*6/uL Low 3.90-5.20 [facility] Comment on above: Order Comment: Speci men Type: BLOOD SPECIMENOrdering Facility: [facility] Address: [address] [place] [address] Performed By: #### 5 8410-2 ####[facility]ORYCLIA [id number] [address] [place] WBC (Bld) [#/Vol] 19.06 10*3/uL High 3.70-11.00 [facility] Comment on above: Order Comment: Speci men Type: BLOOD SPECIMENOrdering Facility: [facility] Address: [address] [place] [address] Performed By: #### 5 8410-2 ####[facility]ORYCLIA [id number] [address] Erythrocyte distribution width (RBC) [Ratio] 16.5 % High 11.5-15.0 [facility] Comment on above: Order Comment: Speci men Type: BLOOD SPECIMENOrdering Facility: [facility] Address: [address] [place] [address] Performed By: #### 5 8410-2 ####[facility]ORYCLIA [id number] [address] Hematocrit (Bld) [Volume fraction] 32.4 % Low 36.0-46.0 [facility] Comment on above: Order Comment: Speci men Type: BLOOD SPECIMENOrdering Facility: [facility] Address: [address] [place] [address] Performed By: #### 5 8410-2 ####[facility]ORYCLIA [id number] [address] Hemoglobin (Bld) [Mass/Vol] 9.4 g/dL Low 11.5-15.5 [facility] Comment on above: Order Comment: Speci men Type: BLOOD SPECIMENOrdering Facility: [facility] Address: [address] [place] [address] Performed By: #### 5 8410-2 ####[facility]ORYCLIA [id number] [address] MCH (RBC) [Entitic mass] 28.2 pg Normal 26.0-34.0 [facility] Comment on above: Order Comment: Speci men Type: BLOOD SPECIMENOrdering Facility: [facility] Address: [address] [place] [address] Performed By: #### 5 8410-2 ####[facility]ORYCLIA [id number] [address] MCHC (RBC) [Mass/Vol] 29.0 g/dL Low 30.5-36.0 [facility] Comment on above: Order Comment: Speci men Type: BLOOD SPECIMENOrdering Facility: [facility] Address: [address] [place] [address] Performed By: #### 5 8410-2 ####[facility]ORYCLIA [id number] [address] MCV (RBC) [Entitic vol] 97.3 fL Normal 80.0-100.0 [facility] Comment on above: Order Comment: Speci men Type: BLOOD SPECIMENOrdering Facility: [facility] Address: [address] [place] [address] Performed By: #### 5 8410-2 ####[facility]ORYCLIA [id number] [address] Nucleated RBC (Bld) [#/Vol] 10*3/uL Normal <0.01 [facility] Comment on above: Order Comment: Speci men Type: BLOOD SPECIMENOrdering Facility: [facility] Address: [address] [address] Performed By: #### 5 8410-2 ####[facility]ORYCLIA [id number] [address] [place] Platelet mean volume (Bld) [Entitic vol] 9.7 fL Normal 9.0-12.7 [facility] Comment on above: Order Comment: Speci men Type: BLOOD SPECIMENOrdering Facility: [facility] Address: [address] [address] Performed By: #### 5 8410-2 ####[facility]ORYCLIA [id number] [address] [place] Platelets (Bld) [#/Vol] 308 10*3/uL Normal 150-400 [facility] Comment on above: Order Comment: Speci men Type: BLOOD SPECIMENOrdering Facility: [facility] Address: [address] [address] Performed By: #### 5 8410-2 ####[facility]ORYCLIA [id number] [address] [place] RBC (Bld) [#/Vol] 3.33 10*6/uL Low 3.90-5.20 [facility] Comment on above: Order Comment: Speci men Type: BLOOD SPECIMENOrdering Facility: [facility] Address: [address] [place] [address] Performed By: #### 5 8410-2 ####[facility]ATORYCLIA [id number] [address] [place] WBC (Bld) [#/Vol] 17.43 10*3/uL High 3.70-11.00 [facility] Comment on above: Order Comment: Speci men Type: BLOOD SPECIMENOrdering Facility: [facility] Address: [address] [place] [address] Performed By: #### 5 8410-2 ####[facility]ORYCLIA [id number] [address] CONSULT PROGon 12-25-2022 CONSULT PROG Normal [facility] CONSULT PROG Normal [facility] CONSULT PROG Normal [facility] ECG COMPLETEon 12-25-2022 ECG COMPLETE Normal [facility] ED NOTEon 12-25-2022 ED NOTE HNO ID: [id number] Author: Claire Sanchez RN Service: Emergency Medicine Author Type: Registered Nurse Type: ED Notes Filed: 12/25/2022 3:16 AM Note Text: Depart to OR Normal [facility] ED NOTE HNO ID: [id number] Author: Claire Sanchez RN Service: Emergency Medicine Author Type: Registered Nurse Type: ED Notes Filed: 12/25/2022 2:39 AM Note Text: Dr. Reyes at bedside to evaluate pt Normal [facility] ED NOTE HNO ID: [id number] Author: Claire Sanchez RN Service: Emergency Medicine Author Type: Registered Nurse Type: ED Notes Filed: 12/25/2022 2:29 AM Note Text: EKG performed at bedside Normal [facility] ED NOTE HNO ID: [id number] Author: Claire Sanchez RN Service: Emergency Medicine Author Type: Registered Nurse Type: ED Notes Filed: 12/25/2022 2:28 AM Note Text: Normal [facility] ED NOTE HNO ID: [id number] Author: Claire Sanchez RN Service: Emergency Medicine Author Type: Registered Nurse Type: ED Notes Filed: 12/25/2022 2:29 AM Note Text: Surgery at bedside Normal [facility] ED NOTE Normal [facility] ED NOTE HNO ID: [id number] Author: Claire Sanchez RN Service: Emergency Medicine Author Type: Registered Nurse Type: ED Notes Filed: 12/25/2022 1:56 AM Note Text: Dr. Saleh at bedside to evaluate pt Normal [facility] ED NOTE HNO ID: [id number] Author: Sirena Redman RN Service: ? Author Type: Registered Nurse Type: ED Notes Filed: 12/25/2022 1:44 AM Note Text: Bed: 01-ED Expected date: Expected time: Means of arrival: Comments: Inguinal issue Normal [facility] ED PROV NOTEon 12-25-2022 ED PROV NOTE Normal [facility] FLUABV+SARS-CoV-2+RSV Pnl Re sp SURESH+probeon 12-25-2022 FLUABV+SARS-CoV-2+RSV Pnl Resp SURESH+probe Normal [facility] Comment on above: Performed By: #### 9 5941-1 ####[facility]ATORYCLIA [id number] [address] STATES OF [facility] HIGH SENSITIVITY TROPONIN To n 12-25-2022 HIGH SENSITIVITY CATERINA 23 ng/L High <12 [facility] Comment on above: Order Comment: Speci dahiana Type: BLOOD SPECIMENOrdering Facility: [facility] Address: [address] [place] [address] Result Comment: When assessing risk for acute coronary syndromes: In patients undergoing blood draw greater than or equal to 2 hours from symptom onset, with history of very low to moderate risk and non-ischemic ECG, an initial hs-Troponin T less than 12 ng/L AND a 1 hour delta hs-Troponin T less than 3 ng/L should be considered very low risk for 30 day MACE. Performed By: #### H STNT ####[facility]ATORYCLIA [id number] [address] HIGH SENSITIVITY CATERINA 34 ng/L High <12 [facility] Comment on above: Order Comment: Roberto talbot Type: BLOOD SPECIMENOrdering Facility: [facility] Address: [address] [place] [address] Result Comment: When assessing risk for acute coronary syndromes: In patients undergoing blood draw greater than or equal to 2 hours from symptom onset, with history of very low to moderate risk and non-ischemic ECG, an initial hs-Troponin T less than 12 ng/L AND a 1 hour delta hs-Troponin T less than 3 ng/L should be considered very low risk for 30 day MACE. Performed By: #### H STNT ####[facility]ATORYCLIA [id number] [place] [address] [place] HISTORY PHYSICALon HISTORY PHYSICAL Normal [facility] Lactate (Bld) [Moles/Vol]on 01-25-2023 Lactate [Moles/Vol] 0.8 mmol/L Normal 0.5-2.2 [facility] Comment on above: Order Comment: Roberto talbot Type: BLOOD SPECIMENOrdering Facility: [facility] Address: [address] [place] [id number] Performed By: #### 3 2693-4 ####[facility]ATORYCLIA [id number] [address] Microorganism Spec Culton Microorganism identified Cx Nom (Unsp spec) CULTURE, FUNGAL: No Fungus isolated after 28 days FUNGAL SMEAR: No fungus seen Normal [facility] Comment on above: Performed By: #### 1 1475-1, 47517-3, 635-3 ####[facility]ORYCLIA [id number] [address] Microorganism identified Cx Nom (Unsp spec) CULTURE, AFB: No Acid Fast Bacilli isolated after 42 days AFB STAIN: No acid fast bacilli seen by flurochrome stain Normal [facility] Comment on above: Performed By: #### 1 1475-1, 12326-6, 635-3 ####[facility]ATORYCLIA [id number] [address] [place] NUTRITIONon 12-25-2022 NUTRITION Normal [facility] OPERATIVE NOon 12-25-2022 OPERATIVE NO Normal [facility] PT panel Coag (PPP)on 2022 INR Coag (PPP) [Relative time] 1.1 {INR} Normal 0.9-1.3 [facility] Comment on above: Order Comment: Roberto talbot Type: BLOOD SPECIMENOrdering Facility: [facility] Address: [place] [address] Result Comment: Erika min K Antagonist (VKA) Therapeutic Range: INR 2 to 3 (Target INR of 2.5)Note: For patients treated with VKA drugs, such as warfarin, the [place] [employer] 2012 Guideline recommends a therapeutic INR range of 2 to 3 (target INR of 2.5). This recommendation includes high-risk patients with antiphospholipid syndrome with previous arterial or venous thromboembolism, current-generation mechanical or bioprosthetic aortic heart valve replacement.Note: Patients with mechanical aortic valve replacement and additional risk factors for thromboembolic events (atrial fibrillation, previous thromboembolism, LV dysfunction, hypercoagulable conditions) or an older generation mechanical AVR (i.e., ball in-Cage) or any mechanical MVR should have a INR therapeutic range of 2.5 to 3.5 (target INR of 3).Gela GH, et al. Chest 2012, 141:7S-47SNishimura RA, et al. [facility] 2017, 70: 252-289 Performed By: #### 3 4528-0 ####[facility]ATORYCLIA [id number] [address] [place] [facility] PT Coag (PPP) [Time] 11.6 s Normal 9.7-13.0 [facility] Comment on above: Order Comment: Speci men Type: BLOOD SPECIMENOrdering Facility: [facility] Address: [address] [place] [address] Performed By: #### 3 4528-0 ####[facility]ATORYCLIA [id number] [address] STAPH AUREUS PCRon S. aureus and MRSA panel SURESH+probe (Nose) Abnormal Negative [facility] Comment on above: Order Comment: Speci dahiana Type: SWAB OF INTERNAL NOSEOrdering Facility: [facility] Address: [address] [place] [address] Result Comment: Posi tive for Staphylococcus aureus by PCR.Positive for MRSA by PCR Performed By: #### S APCR ####[facility]ATORYCLIA [id number] [address] OF [facility] SURGICAL PATHOLOGYon 023 CASE REPORT Normal [facility] Comment on above: Order Comment: Speci men Type: TISSUE SPECIMENOrdering Facility: [facility] Address: [address] [place] [address] Result Comment: Surg ical Pathology Report Case: [id number] Provider: Zackery Leblanc MD Collected: 12/25/2022 04:15 AMOrdering Location: [facility] Received: 12/25/2022 08:34 AMPathologist: Raypecimen: DEBRIDEMENT, LEFT GROIN WOUND Performed By: #### S ####[facility] LABORATORYCLIA [id number] [address] CLINICAL HISTORY Normal [facility] Comment on above: Order Comment: Speci men Type: TISSUE SPECIMENOrdering Facility: [facility] Address: [address] [place] [address] Result Comment: Pre- op diagnosis:Necrotizing soft tissue infection [M79.89] Performed By: #### S ####[facility] LABORATORYCLIA [id number] [address] DIAGNOSIS COMMENT Correlation with microbiologic studies is necessary. [facility] Comment on above: Order Comment: Speci men Type: TISSUE SPECIMENOrdering Facility: [facility] Address: [address] [place] [address] Performed By: #### S ####[facility] LABORATORYCLIA [id number] [address] FINAL DIAGNOSIS [facility] Comment on above: Order Comment: Speci men Type: TISSUE SPECIMENOrdering Facility: [facility] Address: [address] [place] [address] Result Comment: A. L eft groin wound, debridement:- Skin and soft tissue with suppurative acute inflammation and focal gangrenous necrosis. See comment. Performed By: #### S ####[facility] LABORATORYCLIA [id number] [address] FINAL PERFORMING LAB Normal [facility] Comment on above: Order Comment: Speci men Type: TISSUE SPECIMENOrdering Facility: [facility] Address: [address] [place] [address] Result Comment: Diag nostic interpretation performed at [facility], [address] [place] [address] CLIA# [id number] Director: Faraz Sawant M.D. Performed By: #### S ####[facility] LABORATORYCLIA [id number] [address] GROSS DESCRIPTION A. DEBRIDEMENT Normal [facility] Comment on above: Order Comment: Speci men Type: TISSUE SPECIMENOrdering Facility: [facility] Address: [address] [place] [address] Result Comment: A. R eceived in formalin labeled "left groin wound" are multiple brennan-pink to brennan-green rubbery and ischemic appearing segments of tissue aggregating to 15.0 x 7.8 x 3.5 cm. Multiple segments of skin are present and display a xzv-rigz-lno to pink-green ischemic appearance. Orthopedic Coder sections are submitted in formalin in 3 cassettes. Gross examination performed at [facility], [address] [place], [place] [address]KVB December 25, 2022 11:27 AM Performed By: #### S ####[facility] LABORATORYCLIA [id number] [address] TYPE + SCREENon 12-25-2022 ABO O [facility] Comment on above: Order Comment: Speci men Type: BLOOD SPECIMENOrdering Facility: [facility] Address: [address] [place] [address] Performed By: #### T SCR ####[facility] BLOOD BANKCLIA [id number] [address] OF [facility] HISTORICAL AB SCR STATUS Negative [facility] Comment on above: Order Comment: Speci men Type: BLOOD SPECIMENOrdering Facility: [facility] Address: [address] [place] [address] Performed By: #### T SCR ####[facility] BLOOD BANKCLIA [id number] [address] Rh Nom (Bld) Negative [facility] Comment on above: Order Comment: Speci men Type: BLOOD SPECIMENOrdering Facility: [facility] Address: [address] [place], [place] [id number] Performed By: #### T SCR ####[facility] BLOOD BANKCLIA [id number] [place] [address] [facility] TYPE AND SCREEN EXPIRATION 12/28/2022 23:59 Normal [facility] Comment on above: Order Comment: Speci men Type: BLOOD SPECIMENOrdering Facility: [facility] Address: [address] [place] [address] Performed By: #### T SCR ####[facility] BLOOD BANKCLIA [id number] [place] [address] [facility] XR CHEST 1V FRONTALon 2022 XR CHEST 1V FRONTAL Normal [facility] XR CHEST 1V FRONTAL Normal [facility] Absolute lymphocyte countOrd ered By: Dr. Kaiser on 12-24-2022 Lymphocytes Auto (Unsp spec) [#/Vol] 2.75 10*3/uL 0.83-4.51 [facility] Basophil percentageOrdered B y: Dr. Kaiser on 12-24-2022 Basophil percentage 99 mg/dL 74-106 [facility] Basophil percentage 7.2 g/dL 6.4-8.2 [facility] Basophil percentage 0.20 mg/dL 0.20-1.00 [facility] Basophil percentage 134 mmol/L 136-145 [facility] Basophil percentage 4.6 mmol/L 3.5-5.1 [facility] Basophil percentage 102 mmol/L 98-107 [facility] Basophil percentage 3.3 mmol/L 0.4-2.0 [facility] Basophils (Bld) [#/Vol] 16.3 10*3/uL 4.4-11.0 [facility] Basophils (Bld) [#/Vol] 12.3 10*3/uL 2.0-7.7 [facility] Basophils/100 WBC (Bld) 0.6 % 0-1 [facility] Basophils/100 WBC (Bld) 75.3 % 47-70 [facility] Basophils/100 WBC (Bld) 2.0 % 0-5 [facility] Bilirubin [Mass/Vol] 0.20 mg/dL 0.20-1.[address] [facility] Comment on above: For patients on eltr ombopag therapy, use of Dimension [place] TBIL is not recommended. Chloride [Moles/Vol] 102 mmol/L 98-[address] [facility] Eosinophils/100 WBC (Bld) 2.0 % 0-5 [facility] Glucose [Mass/Vol] 99 mg/dL 74-106 [facility] Lactate [Moles/Vol] 3.3 mmol/L 0.4-2.0 [facility] Comment on above: Critical Result(s) C alled at: 22:26:10 12/24/2022 by: Rossy carter [facility]. Results read back by same. Neutrophils (Bld) [#/Vol] 12.3 10*3/uL 2.0-7.7 [facility] Neutrophils/100 WBC (Bld) 75.3 % 47-70 [facility] Potassium [Moles/Vol] 4.6 mmol/L 3.5-5.1 [facility] Protein [Mass/Vol] 7.2 g/dL 6.4-8.2 [facility] Sodium [Moles/Vol] 134 mmol/L 136-145 [facility] WBC (Bld) [#/Vol] 16.3 10*3/uL 4.4-11.0 [facility] Blood erythrocytes count (nu mber/volume)Ordered By: Dr. Kaiser on 12-24-2022 RBC (Bld) [#/Vol] 3.52 10*6/uL 4.2-5.4 [facility] Blood hemoglobin measurement (mass/volume)Ordered By: Dr. Kaiser on 12-24-2022 Hemoglobin (Bld) [Mass/Vol] 10.2 g/dL 12.0-15.0 [facility] Blood lymphocytes/100 leukoc ytesOrdered By: Dr. Kaiser on 12-24-2022 Lymphocytes/100 WBC (Bld) 16.9 % 19-41 [facility] Blood monocytes/100 leukocyt esOrdered By: Dr. Kaiser on 12-24-2022 Monocytes/100 WBC (Bld) 4.2 % 0-10 [facility] Blood platelet mean volumeOr dered By: Dr. Kaiser on 12-24-2022 Platelet mean volume (Bld) [Entitic vol] 9.3 fL 6.2-12.0 [facility] Determination of erythrocyte mean corpuscular volume (MCV)Ordered By: Dr. Kaiser on 12-24-2022 MCV (RBC) [Entitic vol] 94.6 fL 81-99 [facility] Hematocrit Auto (Bld) [Volum e fraction]Ordered By: Dr. Kiaser on 12-24-2022 Hematocrit (Bld) [Volume fraction] 33.3 % 37-47 [facility] INR in Blood by Coagulation assayOrdered By: Dr. Kaiser on 12-24-2022 INR Coag (Bld) [Relative time] 1.3 {INR} [facility] Laboratory - Chemistry and C hemistry - challengeOrdered By: Dr. Kaiser on 12-24-2022 ALP [Catalytic activity/Vol] 60 U/L 45-117 [facility] ALT [Catalytic activity/Vol] 41 U/L 13-56 [facility] CO2 [Moles/Vol] 26.0 mmol/L 21.0-32.0 [facility] Globulin (S) [Mass/Vol] 4.8 g/dL 2.2-4.2 [facility] Urea nitrogen/Creatinine [Mass ratio] 16.3 mg/mg 10-20 [facility] Laboratory - CoagulationOrde red By: Dr. Kaiser on 12-24-2022 aPTT Coag (Bld) [Time] 43.3 s 24.1-36.2 [facility] PT Coag (PPP) [Time] 15.9 s 11.7-14.[address] [facility] Laboratory - Hematology and Cell countsOrdered By: Dr. Kaiser on 12-24-2022 Erythrocyte distribution width (RBC) [Entitic vol] 56.8 fL 35.1-43.9 [facility] Erythrocyte distribution width (RBC) [Ratio] 16.3 % 11.6-14.6 [facility] Immature granulocytes/100 WBC (Bld) 1.000 % 0.0-0.9 [facility] Comment on above: IG% - Immature Granu locytes (promyelocytes, myelocytes and metamyelocytes) > 1% indicates that a LEFT SHIFT is Present. MCH (RBC) [Entitic mass] 29.0 pg 27.0-32.0 [facility] Nucleated RBC/100 WBC (Bld) [Ratio] 0.1 % 0-5 [facility] MCHC Auto (RBC) [Mass/Vol]Or dered By: Dr. Kaiser on 12-24-2022 MCHC (RBC) [Mass/Vol] 30.6 g/dL 32-36 [facility] No Panel InformationOrdered By: Dr. Kaiser on 12-24-2022 Estimated Creatinine Clearance Calc 40.17 ml/min [facility] Estimated GFR (MDRD) Amer 41 mL/min >60 [facility] Comment on above: GFR Calc Estimated GFR (MDRD) Non-Af Amer 34 mL/min >60 [facility] Comment on above: Non- GFR Calc 29.0 pg 27.0-32.0 [facility] 16.3 % 11.6-14.6 [facility] 56.8 fl 35.1-43.9 [facility] 1.000 % 0.0-0.9 [facility] 0.1 % 0-5 [facility] 15.9 SECONDS 11.7-14.9 [facility] 43.3 Seconds 24.1-36.2 [facility] 34 mL/min >60 [facility] 41 mL/min >60 [facility] 40.17 ml/min [facility] 16.3 RATIO 10-20 [facility] 4.8 g/dL 2.2-4.2 [facility] 60 U/L 45-117 [facility] 41 U/L 13-56 [facility] 26.0 mmol/L 21.0-32.0 [facility] Platelets bldOrdered By: Dr. Kaiser on 12-24-2022 Platelets (Bld) [#/Vol] 323 10*3/uL 150-450 [facility] Serum or plasma albumin yunior urement (mass/volume)Ordered By: Dr. Kaiser on 12-24-2022 Albumin [Mass/Vol] 2.4 g/dL 3.2-5.0 [facility] Serum or plasma albumin/glob ulin mass ratioOrdered By: Dr. Kaiser on 12-24-2022 Albumin/Globulin [Mass ratio] 0.5 {ratio} 0.9-2.4 [facility] Serum or plasma calcium yunior urement (mass/volume)Ordered By: Dr. Kaiser on 12-24-2022 Calcium [Mass/Vol] 8.7 mg/dL 8.5-10.1 [facility] Serum or plasma creatinine m easurement (mass/volume)Ordered By: Dr. Kaiser on 12-24-2022 Creatinine [Mass/Vol] 1.72 mg/dL 0.55-1.02 [facility] Comment on above: The validity of the calculated GFR & GFRAA in patients over 70 years has not been determined. Clinical correlation is essential. Serum or plasma urea nitroge n measurement (mass/volume)Ordered By: Dr. Kaiser on 12-24-2022 Urea nitrogen [Mass/Vol] 28 mg/dL 7-18 [facility] Thin prep Papanicolaou smear with manual screeningOrdered By: Dr. Kaiser on 12-24-2022 Thin prep Papanicolaou smear with manual screening 36 U/L 15-37 [facility] Thin prep Papanicolaou smear with manual screening 6 5-15 [facility] Absolute lymphocyte countOrd ered By: Dr. Wilkes on 12-20-2022 Lymphocytes Auto (Unsp spec) [#/Vol] 1.45 10*3/uL 0.83-4.51 [facility] Basophil percentageOrdered B y: Dr. Wilkes on 12-20-2022 Basophil percentage 170 mg/dL 74-106 [facility] Basophil percentage 136 mmol/L 136-145 [facility] Basophil percentage 4.8 mmol/L 3.5-5.1 [facility] Basophil percentage 103 mmol/L 98-107 [facility] Basophils (Bld) [#/Vol] 13.8 10*3/uL 4.4-11.0 [facility] Basophils (Bld) [#/Vol] 11.2 10*3/uL 2.0-7.7 [facility] Basophils/100 WBC (Bld) 0.4 % 0-1 [facility] Basophils/100 WBC (Bld) 81.4 % 47-[address] [facility] Basophils/100 WBC (Bld) 0.7 % 0-5 [facility] Chloride [Moles/Vol] 103 mmol/L 98-[address] [facility] Eosinophils/100 WBC (Bld) 0.7 % 0-5 [facility] Glucose [Mass/Vol] 170 mg/dL 74-106 [facility] Comment on above: Fasting Glucose resu lt greater than or equal to 126 mg/dL suggests DIABETES MELLITUS per A.D.A. criteria. Neutrophils (Bld) [#/Vol] 11.2 10*3/uL 2.0-7.7 [facility] Neutrophils/100 WBC (Bld) 81.4 % 47-70 [facility] Potassium [Moles/Vol] 4.8 mmol/L 3.5-5.1 [facility] Sodium [Moles/Vol] 136 mmol/L 136-145 [facility] WBC (Bld) [#/Vol] 13.8 10*3/uL 4.4-11.0 [facility] Blood erythrocytes count (nu mber/volume)Ordered By: Dr. Wilkes on 12-20-2022 RBC (Bld) [#/Vol] 3.65 10*6/uL 4.2-5.4 [facility] Blood hemoglobin measurement (mass/volume)Ordered By: Dr. Wilkes on 12-20-2022 Hemoglobin (Bld) [Mass/Vol] 10.5 g/dL 12.0-15.0 [facility] Blood lymphocytes/100 leukoc ytesOrdered By: Dr. Wilkes on 12-20-2022 Lymphocytes/100 WBC (Bld) 10.5 % 19-41 [facility] Blood monocytes/100 leukocyt esOrdered By: Dr. Wilkes on 12-20-2022 Monocytes/100 WBC (Bld) 6.3 % 0-10 [facility] Blood platelet mean volumeOr dered By: Dr. Wilkes on 12-20-2022 Platelet mean volume (Bld) [Entitic vol] 10.4 fL 6.2-12.0 [facility] Determination of erythrocyte mean corpuscular volume (MCV)Ordered By: Dr. Wilkes on 12-20-2022 MCV (RBC) [Entitic vol] 94.5 fL 81-99 [facility] Glucose Glucometer (BldC) [M ass/Vol]Ordered By: Dr. Wilkes on 12-20-2022 Glucose [Mass/Vol] 289 mg/dL 74-106 [facility] Comment on above: MANAGEMENT OF PATIEN T CARE PER NURSING PROTOCOL Hematocrit Auto (Bld) [Volum e fraction]Ordered By: Dr. Wilkes on 12-20-2022 Hematocrit (Bld) [Volume fraction] 34.5 % 37-47 [facility] Laboratory - Chemistry and C hemistry - challengeOrdered By: Dr. Wilkes on 12-20-2022 CO2 [Moles/Vol] 27.0 mmol/L 21.0-32.0 [facility] Urea nitrogen/Creatinine [Mass ratio] 50.0 mg/mg 10-20 [facility] Laboratory - Hematology and Cell countsOrdered By: Dr. Wilkes on 12-20-2022 Erythrocyte distribution width (RBC) [Entitic vol] 57.7 fL 35.1-43.9 [facility] Erythrocyte distribution width (RBC) [Ratio] 16.5 % 11.6-14.6 [facility] Immature granulocytes/100 WBC (Bld) 0.700 % 0.0-0.9 [facility] Comment on above: IG% - Immature Granu locytes (promyelocytes, myelocytes and metamyelocytes) > 1% indicates that a LEFT SHIFT is Present. MCH (RBC) [Entitic mass] 28.8 pg 27.0-32.0 [facility] Nucleated RBC/100 WBC (Bld) [Ratio] 0 % 0-5 [facility] MCHC Auto (RBC) [Mass/Vol]Or dered By: Dr. Wilkes on 12-20-2022 MCHC (RBC) [Mass/Vol] 30.4 g/dL 32-36 [facility] No Panel InformationOrdered By: Dr. Wikles on 12-20-2022 Estimated Creatinine Clearance Calc 61.68 ml/min [facility] Estimated GFR (MDRD) Amer 68 mL/min >60 [facility] Comment on above: GFR Calc Estimated GFR (MDRD) Non-Af Amer 56 mL/min >60 [facility] Comment on above: Non- GFR Calc 28.8 pg 27.0-32.0 [facility] 16.5 % 11.6-14.6 [facility] 57.7 fl 35.1-43.9 [facility] 0.700 % 0.0-0.9 [facility] 0 % 0-5 [facility] 56 mL/min >60 [facility] 68 mL/min >60 [facility] 61.68 ml/min [facility] 50.0 RATIO 10-20 [facility] 27.0 mmol/L 21.0-32.0 [facility] Platelets bldOrdered By: Dr. Wilkes on 12-20-2022 Platelets (Bld) [#/Vol] 225 10*3/uL 150-450 [facility] Serum or plasma calcium yunior urement (mass/volume)Ordered By: Dr. Wilkes on 12-20-2022 Calcium [Mass/Vol] 9.1 mg/dL 8.5-10.1 [facility] Serum or plasma creatinine m easurement (mass/volume)Ordered By: Dr. Wilkes on 12-20-2022 Creatinine [Mass/Vol] 1.12 mg/dL 0.55-1.02 [facility] Comment on above: The validity of the calculated GFR & GFRAA in patients over 70 years has not been determined. Clinical correlation is essential. Serum or plasma urea nitroge n measurement (mass/volume)Ordered By: Dr. Wilkes on 12-20-2022 Urea nitrogen [Mass/Vol] 56 mg/dL 06-17 [facility] Thin prep Papanicolaou smear with manual screeningOrdered By: Dr. Wilkes on 12-20-2022 Thin prep Papanicolaou smear with manual screening 6 04-14 [facility] Absolute lymphocyte countOrd ered By: Dr. Quintero on 12-18-2022 Lymphocytes Auto (Unsp spec) [#/Vol] 1.63 10*3/uL 0.83-4.51 [facility] Assessment of wrist artery p atency prior to arterial punctureOrdered By: Dr. Quintero on 12-18-2022 Arterial patency Wrist artery --pre arterial puncture Positive [facility] Base excessOrdered By: Dr. Stas mccormack on 12-18-2022 Base excess Calc (BldV) [Moles/Vol] 0 mmol/L -2-2 [facility] Basophil percentageOrdered B y: Dr. Quintero on 12-18-2022 Basophil percentage 26.7 mmol/L 22-[address] [facility] Basophils/100 WBC (Bld) 89 % 95-99 [facility] Basophil percentage 0 SEEN /hpf 0-[address] [facility] Basophils/100 WBC (Bld) 0.3 % 0-1 [facility] Chloride [Moles/Vol] 98 mmol/L 98-[address] [facility] Eosinophils/100 WBC (Bld) 0.3 % 0-5 [facility] Glucose [Mass/Vol] 171 mg/dL 74-106 [facility] Comment on above: Fasting Glucose resu lt greater than or equal to 126 mg/dL suggests DIABETES MELLITUS per A.D.A. criteria. Neutrophils (Bld) [#/Vol] 15.5 10*3/uL 2.0-7.7 [facility] Neutrophils/100 WBC (Bld) 84.5 % 47-70 [facility] Potassium [Moles/Vol] 5.6 mmol/L 3.5-5.1 [facility] Sodium [Moles/Vol] 130 mmol/L 136-145 [facility] WBC (Bld) [#/Vol] 18.3 10*3/uL 4.4-11.0 [facility] Bilirubin Test strip Ql (U)O rdered By: Dr. Quintero on 12-18-2022 Bilirubin Ql (U) Negative Negative [facility] Blood erythrocytes count (nu mber/volume)Ordered By: Dr. Quintero on 12-18-2022 RBC (Bld) [#/Vol] 4.04 10*6/uL 4.2-5.4 [facility] Blood hemoglobin measurement (mass/volume)Ordered By: Dr. Quintero on 12-18-2022 Hemoglobin (Bld) [Mass/Vol] 11.5 g/dL 12.0-15.0 [facility] Blood lymphocytes/100 leukoc ytesOrdered By: Dr. Quintero on 12-18-2022 Lymphocytes/100 WBC (Bld) 8.9 % 19-41 [facility] Blood monocytes/100 leukocyt esOrdered By: Dr. Quintero on 12-18-2022 Monocytes/100 WBC (Bld) 5.2 % 0-10 [facility] Blood platelet mean volumeOr dered By: Dr. Quintero on 12-18-2022 Platelet mean volume (Bld) [Entitic vol] 10.0 fL 6.2-12.0 [facility] CO2 (BldA) [Partial pressure ]Ordered By: Dr. Quintero on 12-18-2022 CO2 (Bld) [Partial pressure] 53.7 mm[Hg] 35-45 [facility] Determination of erythrocyte mean corpuscular volume (MCV)Ordered By: Dr. Quintero on 12-18-2022 MCV (RBC) [Entitic vol] 92.6 fL 81-99 [facility] Hematocrit Auto (Bld) [Volum e fraction]Ordered By: Dr. Quintero on 12-18-2022 Hematocrit (Bld) [Volume fraction] 37.4 % 37-47 [facility] Ketones Test strip Ql (U)Ord ered By: Dr. Quintero on 12-18-2022 Ketones Ql (U) Negative Negative [facility] Laboratory - Chemistry and C hemistry - challengeOrdered By: Dr. Quintero on 12-18-2022 CO2 [Moles/Vol] 27.0 mmol/L 21.0-32.0 [facility] Urea nitrogen/Creatinine [Mass ratio] 33.8 mg/mg 10-20 [facility] Laboratory - Hematology and Cell countsOrdered By: Dr. Quintero on 12-18-2022 Erythrocyte distribution width (RBC) [Entitic vol] 57.5 fL 35.1-43.9 [facility] Erythrocyte distribution width (RBC) [Ratio] 16.8 % 11.6-14.6 [facility] Immature granulocytes/100 WBC (Bld) 0.800 % 0.0-0.9 [facility] Comment on above: IG% - Immature Granu locytes (promyelocytes, myelocytes and metamyelocytes) > 1% indicates that a LEFT SHIFT is Present. MCH (RBC) [Entitic mass] 28.5 pg 27.0-32.0 [facility] Nucleated RBC/100 WBC (Bld) [Ratio] 0 % 0-5 [facility] MCHC Auto (RBC) [Mass/Vol]Or dered By: Dr. Quintero on 12-18-2022 MCHC (RBC) [Mass/Vol] 30.7 g/dL 32-36 [facility] Mucus LM Ql (Urine sed)Order ed By: Dr. Quintero on 12-18-2022 Mucus Ql (Urine sed) 0 SEEN /hpf [facility] Nitrite Test strip Ql (U)Ord ered By: Dr. Quintero on 12-18-2022 Nitrite Ql (U) Negative Negative [facility] No Panel InformationOrdered By: Dr. Quintero on 12-18-2022 Blood Gas Liter Flow 3.0 /min [facility] Blood Gas Sample Site R [facility] Blood Gas Specimen Type ART [facility] Blood Gas Total CO2 28 mmol/L [facility] Oxygen Delivery Device Cannula [facility] ART [facility] R [facility] Cannula [facility] 3.0 /min [facility] 28 mmol/L [facility] Estimated Creatinine Clearance Calc 29.15 ml/min [facility] Estimated GFR (MDRD) Amer 28 mL/min >60 [facility] Comment on above: GFR Calc Estimated GFR (MDRD) Non-Af Amer 24 mL/min >60 [facility] Comment on above: Non- GFR Calc Troponin I High Sensitivity 22 pg/mL 3.0-54.0 [facility] Comment on above: Please Note: New Laisha t Units and Gender Specific Reference Ranges. For more information see Policy Stat Procedure [place] High Sensitivity Troponin (TNIH) and attachments. 22 pg/mL 3.0-54.0 [facility] Oxygen (BldA) [Partial press ure]Ordered By: Dr. Quintero on 12-18-2022 Oxygen (Bld) [Partial pressure] 63 mmHG 75-100 [facility] Platelets bldOrdered By: Dr. Quintero on 12-18-2022 Platelets (Bld) [#/Vol] 251 10*3/uL 150-450 [facility] Protein Test strip Ql (U)Ord ered By: Dr. Quintero on 12-18-2022 Protein Ql (U) Negative Negative [facility] Serum or plasma calcium yunior urement (mass/volume)Ordered By: Dr. Quintero on 12-18-2022 Calcium [Mass/Vol] 8.6 mg/dL 8.5-10.1 [facility] Serum or plasma creatinine m easurement (mass/volume)Ordered By: Dr. Quintero on 12-18-2022 Creatinine [Mass/Vol] 2.37 mg/dL 0.55-1.02 [facility] Comment on above: The validity of the calculated GFR & GFRAA in patients over 70 years has not been determined. Clinical correlation is essential. Serum or plasma urea nitroge n measurement (mass/volume)Ordered By: Dr. Quintero on 12-18-2022 Urea nitrogen [Mass/Vol] 80 mg/dL - [facility] Squamous epithelial cells de tection in urine sediment by light microscopyOrdered By: Dr. Quintero on 12-18-2022 Epithelial cells.squamous LM Ql (Urine sed) 0 SEEN /hpf 5-10 [facility] Thin prep Papanicolaou smear with manual screeningOrdered By: Dr. Quintero on 12-18-2022 Thin prep Papanicolaou smear with manual screening 5 5-15 [facility] Urine blood detectionOrdered By: Dr. Quintero on 12-18-2022 RBC Ql (U) Negative Negative [facility] RBC Ql (U) 0 SEEN /hpf 0-5 [facility] Urine clarityOrdered By: Dr. Quintero on 12-18-2022 Clarity (U) Clear Clear [facility] Urine color determinationOrd ered By: Dr. Quintero on 12-18-2022 Color (U) Yellow Yellow [facility] Urine glucose detectionOrder ed By: Dr. Quintero on 12-18-2022 Glucose Ql (U) 250 mg/dl Normal [facility] Urine leukocyte esterase det ection by dipstickOrdered By: Dr. Quintero on 12-18-2022 Leukocyte esterase Test strip Ql (U) Negative Negative [facility] Urine pHOrdered By: Dr. Cecilia andujar on 12-18-2022 pH (U) 6.0 [pH] 5.0 - 8.0 [facility] Urine sediment bacteria coun t by microscopy (number/high power field)Ordered By: Dr. Quintero on 12-18-2022 Bacteria LM.HPF (Urine sed) [#/Area] 1 /[HPF] None Seen [facility] Urine sediment yeast count b y microscopy (number/high powered field)Ordered By: Dr. Quintero on 12-18-2022 Yeast LM.HPF (Urine sed) [#/Area] RARE /hpf None Seen [facility] Urine specific gravity measu rementOrdered By: Dr. Quintero on 12-18-2022 Specific gravity (U) [Rel density] 1.010 1.002-1.030 [facility] Urobilinogen Auto test strip Ql (U)Ordered By: Dr. Quintero on 12-18-2022 Urobilinogen Ql (U) Normal mg/dl Normal [facility] pH measurementOrdered By: Dr Susan Quintero on 12-18-2022 pH (Unsp spec) 7.30 [pH] 7.35-7.45 [facility] Absolute lymphocyte countOrd ered By: Dr. Kaiser on 12-09-2022 Lymphocytes Auto (Unsp spec) [#/Vol] 2.05 10*3/uL 0.83-4.51 [facility] Basophil percentageOrdered B y: Dr. Kaiser on 12-09-2022 Basophil percentage 3.2 mmol/L 0.4-2.0 [facility] Lactate [Moles/Vol] 3.2 mmol/L 0.4-2.0 [facility] Comment on above: Critical Result(s) C alled at: 13:21:10 12/09/2022 by: Cathy Ladd. Results read back by same. Basophil percentage 232 mg/dL 74-106 [facility] Basophil percentage 137 mmol/L 136-145 [facility] Basophil percentage 4.3 mmol/L 3.5-5.1 [facility] Basophil percentage 101 mmol/L 98-107 [facility] Basophils (Bld) [#/Vol] 13.3 10*3/uL 4.4-11.0 [facility] Basophils (Bld) [#/Vol] 10.4 10*3/uL 2.0-7.7 [facility] Basophils/100 WBC (Bld) 0.8 % 0-1 [facility] Basophils/100 WBC (Bld) 78.2 % 47-70 [facility] Basophils/100 WBC (Bld) 1.4 % 0-5 [facility] Chloride [Moles/Vol] 101 mmol/L 98-[address] [facility] Eosinophils/100 WBC (Bld) 1.4 % 0-5 [facility] Glucose [Mass/Vol] 232 mg/dL 74-106 [facility] Comment on above: Glucose result great er than or equal to 200 mg/dLsuggests DIABETES MELLITUS per A.D.A. criteria. Neutrophils (Bld) [#/Vol] 10.4 10*3/uL 2.0-7.7 [facility] Neutrophils/100 WBC (Bld) 78.2 % 47-70 [facility] Potassium [Moles/Vol] 4.3 mmol/L 3.5-5.1 [facility] Sodium [Moles/Vol] 137 mmol/L 136-145 [facility] WBC (Bld) [#/Vol] 13.3 10*3/uL 4.4-11.0 [facility] Blood erythrocytes count (nu mber/volume)Ordered By: Dr. Kaiser on 12-09-2022 RBC (Bld) [#/Vol] 4.25 10*6/uL 4.2-5.4 [facility] Blood hemoglobin measurement (mass/volume)Ordered By: Dr. Kaiser on 12-09-2022 Hemoglobin (Bld) [Mass/Vol] 12.0 g/dL 12.0-15.0 [facility] Blood lymphocytes/100 leukoc ytesOrdered By: Dr. Kaiser on 12-09-2022 Lymphocytes/100 WBC (Bld) 15.5 % 19-41 [facility] Blood monocytes/100 leukocyt esOrdered By: Dr. Kaiser on 12-09-2022 Monocytes/100 WBC (Bld) 2.8 % 0-10 [facility] Blood platelet mean volumeOr dered By: Dr. Kaiser on 12-09-2022 Platelet mean volume (Bld) [Entitic vol] 9.8 fL 6.2-12.0 [facility] Determination of erythrocyte mean corpuscular volume (MCV)Ordered By: Dr. Kaiser on 12-09-2022 MCV (RBC) [Entitic vol] 96.9 fL 81-99 [facility] Hematocrit Auto (Bld) [Volum e fraction]Ordered By: Dr. Kaiser on 12-09-2022 Hematocrit (Bld) [Volume fraction] 41.2 % 37-47 [facility] Laboratory - Chemistry and C hemistry - challengeOrdered By: Dr. Kaiser on 12-09-2022 CO2 [Moles/Vol] 30.0 mmol/L 21.0-32.0 [facility] Urea nitrogen/Creatinine [Mass ratio] 16.5 mg/mg 10-20 [facility] Laboratory - Hematology and Cell countsOrdered By: Dr. Kaiser on 12-09-2022 Erythrocyte distribution width (RBC) [Entitic vol] 62.4 fL 35.1-43.9 [facility] Erythrocyte distribution width (RBC) [Ratio] 17.6 % 11.6-14.6 [facility] Immature granulocytes/100 WBC (Bld) 1.300 % 0.0-0.9 [facility] Comment on above: IG% - Immature Granu locytes (promyelocytes, myelocytes and metamyelocytes) > 1% indicates that a LEFT SHIFT is Present. MCH (RBC) [Entitic mass] 28.2 pg 27.0-32.0 [facility] Nucleated RBC/100 WBC (Bld) [Ratio] 0.5 % 0-5 [facility] MCHC Auto (RBC) [Mass/Vol]Or dered By: Dr. Kaiser on 12-09-2022 MCHC (RBC) [Mass/Vol] 29.1 g/dL 32-36 [facility] No Panel InformationOrdered By: Dr. Kaiser on 12-09-2022 Estimated Creatinine Clearance Calc 71.22 ml/min [facility] Estimated GFR (MDRD) Amer 80 mL/min >60 [facility] Comment on above: GFR Calc Estimated GFR (MDRD) Non-Af Amer 66 mL/min >60 [facility] Comment on above: Non- GFR Calc 28.2 pg 27.0-32.0 [facility] 17.6 % 11.6-14.6 [facility] 62.4 fl 35.1-43.9 [facility] 1.300 % 0.0-0.9 [facility] 0.5 % 0-5 [facility] 66 mL/min >60 [facility] 80 mL/min >60 [facility] 71.22 ml/min [facility] 16.5 RATIO 10-20 [facility] 30.0 mmol/L 21.0-32.0 [facility] Platelets bldOrdered By: Dr. Kaiser on 12-09-2022 Platelets (Bld) [#/Vol] 297 10*3/uL 150-450 [facility] Serum or plasma calcium yunior urement (mass/volume)Ordered By: Dr. Kaiser on 12-09-2022 Calcium [Mass/Vol] 9.0 mg/dL 8.5-10.1 [facility] Serum or plasma creatinine m easurement (mass/volume)Ordered By: Dr. Kaiser on 12-09-2022 Creatinine [Mass/Vol] 0.97 mg/dL 0.55-1.02 [facility] Comment on above: The validity of the calculated GFR & GFRAA in patients over 70 years has not been determined. Clinical correlation is essential. Serum or plasma urea nitroge n measurement (mass/volume)Ordered By: Dr. Kaiser on 12-09-2022 Urea nitrogen [Mass/Vol] 16 mg/dL 7-18 [facility] Thin prep Papanicolaou smear with manual screeningOrdered By: Dr. Kaiser on 12-09-2022 Thin prep Papanicolaou smear with manual screening 6 5-15 [facility] Comprehensive metabolic 2000 panelon 11-11-2022 Albumin [Mass/Vol] 3.7 g/dL Low 3.9 - 4.9 g/dL [facility] ALP [Catalytic activity/Vol] 69 U/L 34 - 123 U/L [facility] ALT [Catalytic activity/Vol] 24 U/L 7 - 38 U/L [facility] Anion gap [Moles/Vol] 12 mmol/L 9 - 18 mmol/L [facility] AST [Catalytic activity/Vol] 19 U/L 13 - 35 U/L [facility] Bilirubin [Mass/Vol] 0.2 mg/dL 0.2 - 1.3 mg/dL [facility] Calcium [Mass/Vol] 9.4 mg/dL 8.5 - 10. 2 mg/dL [facility] Chloride [Moles/Vol] 90 mmol/L Low 97 - 105 mmol/L [facility] CO2 [Moles/Vol] 30 mmol/L 22 - 30 mmol/L [facility] Creatinine [Mass/Vol] 1.27 mg/dL High 0.58 - 0.96 mg/dL [facility] Estimated Glomerular Filtration Rate 53 mL/min/1.73m Low >=60 mL/min/1.73m [facility] Glucose [Mass/Vol] 221 mg/dL High 74 - 99 mg/dL [facility] Potassium [Moles/Vol] 4.9 mmol/L 3.7 - 5.1 mmol/L [facility] Protein [Mass/Vol] 6.9 g/dL 6.3 - 8.0 g/dL [facility] Sodium [Moles/Vol] 132 mmol/L Low 136 - 144 mmol/L [facility] Urea nitrogen [Mass/Vol] 44 mg/dL High 7 - 21 mg/d L [facility] Comprehensive metabolic 2000 panelon 11-09-2022 Albumin [Mass/Vol] 3.8 g/dL Low 3.9 - 4.9 g/dL [facility] ALP [Catalytic activity/Vol] 65 U/L 34 - 123 U/L [facility] ALT [Catalytic activity/Vol] 36 U/L 7 - 38 U/L [facility] Anion gap [Moles/Vol] 17 mmol/L 9 - 18 mmol/L [facility] AST [Catalytic activity/Vol] 44 U/L High 13 - 35 U/L [facility] Bilirubin [Mass/Vol] 0.3 mg/dL 0.2 - 1.3 mg/dL [facility] Calcium [Mass/Vol] 9.6 mg/dL 8.5 - 10. 2 mg/dL [facility] Chloride [Moles/Vol] 82 mmol/L Low 97 - 105 mmol/L [facility] CO2 [Moles/Vol] 29 mmol/L 22 - 30 mmol/L [facility] Creatinine [Mass/Vol] 2.32 mg/dL High 0.58 - 0.96 mg/dL [facility] Estimated Glomerular Filtration Rate 26 mL/min/1.73m Low >=60 mL/min/1.73m [facility] Glucose [Mass/Vol] 107 mg/dL High 74 - 99 mg/dL [facility] Potassium [Moles/Vol] 5.6 mmol/L High 3.7 - 5.1 mmol/L [facility] Protein [Mass/Vol] 6.7 g/dL 6.3 - 8.0 g/dL [facility] Sodium [Moles/Vol] 128 mmol/L Low 136 - 144 mmol/L [facility] Urea nitrogen [Mass/Vol] 71 mg/dL High 7 - 21 mg/d L [facility] HbA1c (Bld)on 11-09-2022 Average glucose Estimated from glycated hemoglobin (Bld) [Mass/Vol] 235 mg/dL [facility] HbA1c (Bld) [Mass fraction] 9.8 % High 4.3 - 5.6 % [facility] Absolute lymphocyte countOrd ered By: Dr. Pitts on 11-01-2022 Lymphocytes Auto (Unsp spec) [#/Vol] 2.04 10*3/uL 0.83-4.51 [facility] Basophil percentageOrdered B y: Dr. Pitts on 11-01-2022 Basophils/100 WBC (Bld) 0.3 % 0-1 [facility] Bilirubin [Mass/Vol] 0.40 mg/dL 0.20-1.[address] [facility] Comment on above: For patients on eltr ombopag therapy, use of Dimension [place] TBIL is not recommended. Chloride [Moles/Vol] 92 mmol/L 98-[address] [facility] Eosinophils/100 WBC (Bld) 0.0 % 0-5 [facility] Glucose [Mass/Vol] 164 mg/dL 74-106 [facility] Comment on above: Fasting Glucose resu lt greater than or equal to 126 mg/dL suggests DIABETES MELLITUS per A.D.A. criteria. Neutrophils (Bld) [#/Vol] 19.5 10*3/uL 2.0-7.7 [facility] Neutrophils/100 WBC (Bld) 84.4 % 47-70 [facility] Potassium [Moles/Vol] 3.8 mmol/L 3.5-5.1 [facility] Protein [Mass/Vol] 7.7 g/dL 6.4-8.2 [facility] Sodium [Moles/Vol] 133 mmol/L 136-145 [facility] WBC (Bld) [#/Vol] 23.2 10*3/uL 4.4-11.0 [facility] Blood erythrocytes count (nu mber/volume)Ordered By: Dr. Pitts on 11-01-2022 RBC (Bld) [#/Vol] 4.55 10*6/uL 4.2-5.4 [facility] Blood hemoglobin measurement (mass/volume)Ordered By: Dr. Pitts on 11-01-2022 Hemoglobin (Bld) [Mass/Vol] 12.8 g/dL 12.0-15.0 [facility] Blood lymphocytes/100 leukoc ytesOrdered By: Dr. Pitts on 11-01-2022 Lymphocytes/100 WBC (Bld) 8.8 % 19-41 [facility] Blood monocytes/100 leukocyt esOrdered By: Dr. Pitts on 11-01-2022 Monocytes/100 WBC (Bld) 5.7 % 0-10 [facility] Blood platelet mean volumeOr dered By: Dr. Pitts on 11-01-2022 Platelet mean volume (Bld) [Entitic vol] 9.5 fL 6.2-12.0 [facility] Determination of erythrocyte mean corpuscular volume (MCV)Ordered By: Dr. Pitts on 11-01-2022 MCV (RBC) [Entitic vol] 91.4 fL 81-99 [facility] Hematocrit Auto (Bld) [Volum e fraction]Ordered By: Dr. Pitts on 11-01-2022 Hematocrit (Bld) [Volume fraction] 41.6 % 37-47 [facility] Influenza virus A and B and SARS-CoV-2 (COVID-19) Ag panel - Upper respiratory specimOrdered By: Dr. Pitts on 11-01-2022 SARS-CoV-2 (COVID-19) RNA SURESH+probe Ql (Resp) [facility] Laboratory - Chemistry and C hemistry - challengeOrdered By: Dr. Pitts on 11-01-2022 ALP [Catalytic activity/Vol] 53 U/L 45-117 [facility] ALT [Catalytic activity/Vol] 28 U/L 13-56 [facility] CO2 [Moles/Vol] 36.0 mmol/L 21.0-32.0 [facility] Globulin (S) [Mass/Vol] 4.4 g/dL 2.2-4.2 [facility] Urea nitrogen/Creatinine [Mass ratio] 24.3 mg/mg 10-20 [facility] - Hematology and Cell countsOrdered By: Dr. Pitts on 11-01-2022 Erythrocyte distribution width (RBC) [Entitic vol] 59.3 fL 35.1-43.9 [facility] Erythrocyte distribution width (RBC) [Ratio] 17.5 % 11.6-14.6 [facility] Immature granulocytes/100 WBC (Bld) 0.800 % 0.0-0.9 [facility] Comment on above: IG% - Immature Granu locytes (promyelocytes, myelocytes and metamyelocytes) > 1% indicates that a LEFT SHIFT is Present. MCH (RBC) [Entitic mass] 28.1 pg 27.0-32.0 [facility] Nucleated RBC/100 WBC (Bld) [Ratio] 0 % 0-5 [facility] MCHC Auto (RBC) [Mass/Vol]Or dered By: Dr. Pitts on 11-01-2022 MCHC (RBC) [Mass/Vol] 30.8 g/dL 32-36 [facility] No Panel InformationOrdered By: Dr. Pitts on 11-01-2022 Estimated Creatinine Clearance Calc 43.19 ml/min [facility] Estimated GFR (MDRD) Amer 49 mL/min >60 [facility] Comment on above: GFR Calc Estimated GFR (MDRD) Non-Af Amer 41 mL/min >60 [facility] Comment on above: Non- GFR Calc Troponin I High Sensitivity 31 pg/mL 3.0-54.0 [facility] Comment on above: Please Note: New Laisha t Units and Gender Specific Reference Ranges. For more information see Policy Stat Procedure [place] High Sensitivity Troponin (TNIH) and attachments. Platelets bldOrdered By: Dr. Pitts on 11-01-2022 Platelets (Bld) [#/Vol] 230 10*3/uL 150-450 [facility] RSV Ag EIAOrdered By: Dr. Robert frost on 11-01-2022 RSV Ag Immune stain Ql (Tiss) [facility] S. pyogenes Ag IF Ql (Throat )Ordered By: Dr. Pitts on 11-01-2022 S. pyogenes Ag IA Ql (Unsp spec) Streptococcus Group A [facility] Serum or plasma albumin yunior urement (mass/volume)Ordered By: Dr. Pitts on 11-01-2022 Albumin [Mass/Vol] 3.3 g/dL 3.2-5.0 [facility] Serum or plasma albumin/glob ulin mass ratioOrdered By: Dr. Pitts on 11-01-2022 Albumin/Globulin [Mass ratio] 0.8 {ratio} 0.9-2.4 [facility] Serum or plasma calcium yunior urement (mass/volume)Ordered By: Dr. Pitts on 11-01-2022 Calcium [Mass/Vol] 9.3 mg/dL 8.5-10.1 [facility] Serum or plasma creatinine m easurement (mass/volume)Ordered By: Dr. Pitts on 11-01-2022 Creatinine [Mass/Vol] 1.48 mg/dL 0.55-1.02 [facility] Comment on above: The validity of the calculated GFR & GFRAA in patients over 70 years has not been determined. Clinical correlation is essential. Serum or plasma urea nitroge n measurement (mass/volume)Ordered By: Dr. Pitts on 11-01-2022 Urea nitrogen [Mass/Vol] 36 mg/dL 7-18 [facility] Thin prep Papanicolaou smear with manual screeningOrdered By: Dr. Pitts on 11-01-2022 Thin prep Papanicolaou smear with manual screening 20 U/L 15-37 [facility] Thin prep Papanicolaou smear with manual screening 5 5-15 [facility] MAGNESIUM BLDon 10-19-2022 Magnesium [Mass/Vol] 2.0 mg/dL 1.7 - 2.3 mg/dL [facility] PHOSPHORUS INORGANICon 10-19 Phosphate [Mass/Vol] 3.4 mg/dL 2.7 - 4.8 mg/dL [facility] TSH BLDon 10-19-2022 TSH Qn 4.130 m[IU]/L 0.270 - 4.200 mIU/L [facility] CBC W Auto Differential pane l (Bld)on 10-18-2022 Basophils (Bld) [#/Vol] 0.05 10*3/uL <0.11 k/uL [facility] Basophils/100 WBC (Bld) 0.6 % [facility] Differential cell count method Nom (Bld) Auto [facility] Eosinophils (Bld) [#/Vol] 0.25 10*3/uL <0.46 k/uL [facility] Eosinophils/100 WBC (Bld) 2.8 % [facility] Erythrocyte distribution width (RBC) [Ratio] 17.0 % High 11.5 - 15.0 % [facility] Hematocrit (Bld) [Volume fraction] 43.7 % 36.0 - 46.0 % [facility] Hemoglobin (Bld) [Mass/Vol] 12.9 g/dL 11.5 - 15.5 g/dL [facility] Immature granulocytes (Bld) [#/Vol] 0.08 10*3/uL <0.10 k/uL [facility] Immature granulocytes/100 WBC (Bld) 0.9 % [facility] Lymphocytes (Bld) [#/Vol] 1.57 10*3/uL 1.00 - 4.00 k/uL [facility] Lymphocytes/100 WBC (Bld) 17.8 % [facility] MCH (RBC) [Entitic mass] 27.7 pg 26.0 - 34.0 pg [facility] MCHC (RBC) [Mass/Vol] 29.5 g/dL Low 30.5 - 36.0 g/dL [facility] MCV (RBC) [Entitic vol] 93.8 fL 80.0 - 100.0 fL [facility] Monocytes (Bld) [#/Vol] 0.38 10*3/uL <0.87 k/uL [facility] Monocytes/100 WBC (Bld) 4.3 % C [facility] Neutrophils (Bld) [#/Vol] 6.50 10*3/uL 1.45 - 7.50 k/uL [facility] Neutrophils/100 WBC (Bld) 73.6 % [facility] Nucleated RBC (Bld) [#/Vol] <0.01 k/uL [facility] Nucleated RBC/100 WBC (Bld) [Ratio] 0.0 /100 WBC [facility] Platelet mean volume (Bld) [Entitic vol] 9.8 fL 9.0 - 12.7 fL [facility] Platelets (Bld) [#/Vol] 188 10*3/uL 150 - 400 k /uL [facility] RBC (Bld) [#/Vol] 4.66 10*6/uL 3.90 - 5.2 0 m/uL [facility] WBC (Bld) [#/Vol] 8.83 10*3/uL 3.70 - 11. 00 k/uL [facility] Comprehensive metabolic 2000 panelon 10-18-2022 Albumin [Mass/Vol] 4.2 g/dL 3.9 - 4.9 g/dL [facility] ALP [Catalytic activity/Vol] 68 U/L 34 - 123 U/L [facility] ALT [Catalytic activity/Vol] 24 U/L 7 - 38 U/L [facility] Anion gap [Moles/Vol] 10 mmol/L 9 - 18 mmol/L [facility] AST [Catalytic activity/Vol] 33 U/L 13 - 35 U/L [facility] Bilirubin [Mass/Vol] 0.2 mg/dL 0.2 - 1.3 mg/dL [facility] Calcium [Mass/Vol] 10.2 mg/dL 8.5 - 10. 2 mg/dL [facility] Chloride [Moles/Vol] 91 mmol/L Low 97 - 105 mmol/L [facility] CO2 [Moles/Vol] 39 mmol/L High 22 - 30 mmol/L [facility] Creatinine [Mass/Vol] 0.95 mg/dL 0.58 - 0.96 mg/dL [facility] Estimated Glomerular Filtration Rate 75 mL/min/1.73m >=60 mL/min/1.73m [facility] Glucose [Mass/Vol] 180 mg/dL High 74 - 99 mg/dL [facility] Potassium [Moles/Vol] 4.3 mmol/L 3.7 - 5.1 mmol/L [facility] Protein [Mass/Vol] 7.4 g/dL 6.3 - 8.0 g/dL [facility] Sodium [Moles/Vol] 140 mmol/L 136 - 144 mmol/L [facility] Urea nitrogen [Mass/Vol] 22 mg/dL High 7 - 21 mg/d L [facility] Laboratory - Chemistry and C hemistry - challengeOrdered By: Dr. Oreilly on 10-18-2022 Natriuretic peptide B (Bld) [Mass/Vol] 11.2 pg/mL 0-100 [facility] XR CHEST 2V FRONTAL/LATon [facility] XR Chest PA and Lateralon IMPRESSION: No acute radiographic abnormality. 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: PHIL Transcribe Date/Time: Oct 18 2022 3:59P Dictated by : SHAWN FLORES MD This examination was interpreted and the report reviewed and electronically signed by: SHAWN FLORES MD on Oct 18 2022 3:59PM [facility] DIVISION OF RADIOLOGY * * *Final Report* * * DATE OF EXAM: Oct 18 2022 12:36PM WOX [id number] - XR CHEST 2V FRONTAL/LAT / PROCEDURE REASON: multiple diagnoses * * * * Physician Interpretation * * * * EXAMINATION: CHEST RADIOGRAPH (2 VIEW FRONTAL & LATERAL) CLINICAL HISTORY: Acute diastolic CHF (congestive heart failure) (HCC) Bilateral lower extremity edema MQ: XC2_6 EXAM DATE/TIME: 10/18/2022 12:36 PM COMPARISON: 07/09/2022 RESULT: Lines, tubes, and devices: None. Lungs and pleura: No consolidation. No lung mass. No pleural effusion. No pneumothorax. Cardiomediastinal silhouette: Stable cardiomediastinal silhouette. Bones and soft tissues: Unremarkable. DIVISION OF RADIOLOGY Provider, [facility] [place] [facility] - 10/18/2022 * * *Final Report* * * DATE OF EXAM: Oct 18 2022 12:36PM WOX [id number] - XR CHEST 2V FRONTAL/LAT / PROCEDURE REASON: multiple diagnoses * * * * Physician Interpretation * * * * EXAMINATION: CHEST RADIOGRAPH (2 VIEW FRONTAL & LATERAL) CLINICAL HISTORY: Acute diastolic CHF (congestive heart failure) (HCC) Bilateral lower extremity edema MQ: XC2_6 EXAM DATE/TIME: 10/18/2022 12:36 PM COMPARISON: 07/09/2022 RESULT: Lines, tubes, and devices: None. Lungs and pleura: No consolidation. No lung mass. No pleural effusion. No pneumothorax. Cardiomediastinal silhouette: Stable cardiomediastinal silhouette. Bones and soft tissues: Unremarkable. IMPRESSION IMPRESSION: No acute radiographic abnormality. 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: PHIL Transcribe Date/Time: Oct 18 2022 3:59P Dictated by : SHAWN FLORES MD This examination was interpreted and the report reviewed and electronically signed by: SHAWN FLORES MD on Oct 18 2022 3:59PM EST [facility] Radiology Study observation (narrative) Denita wilson [facility] XR Chest PA and LateralOrder ed By: [facility] Provider on 10-18-2022 [facility] Laboratory - Microbiology an d Antimicrobial susceptibilityOrdered By: Dr. Pitts on 09-28-2022 Bacteria identified Cx Nom (Bld) No growth in 5 days. [facility] Microbial respiratory cultur eOrdered By: Dr. Chu on 09-26-2022 Bacteria identified Respiratory culture Nom (Unsp spec) [facility] Culture, urineOrdered By: Dr Susan Pitts on 09-25-2022 Bacteria identified Cx Nom (U) Escherichia coli [facility] Absolute lymphocyte countOrd ered By: Dr. Eubanks on 09-24-2022 Lymphocytes Auto (Unsp spec) [#/Vol] 1.76 10*3/uL 0.83-4.51 [facility] Basophil percentageOrdered B y: Dr. Eubanks on 09-24-2022 Basophils/100 WBC (Bld) 0.4 % 0-1 [facility] Bilirubin [Mass/Vol] 0.30 mg/dL 0.20-1.[address] [facility] Comment on above: For patients on eltr ombopag therapy, use of Dimension [place] TBIL is not recommended. Chloride [Moles/Vol] 93 mmol/L 98-[address] [facility] Eosinophils/100 WBC (Bld) 0.1 % 0-5 [facility] Glucose [Mass/Vol] 254 mg/dL 74-106 [facility] Comment on above: Glucose result great er than or equal to 200 mg/dLsuggests DIABETES MELLITUS per A.D.A. criteria. Neutrophils (Bld) [#/Vol] 12.3 10*3/uL 2.0-7.7 [facility] Neutrophils/100 WBC (Bld) 81.7 % 47-70 [facility] Potassium [Moles/Vol] 3.5 mmol/L 3.5-5.1 [facility] Protein [Mass/Vol] 7.9 g/dL 6.4-8.2 [facility] Sodium [Moles/Vol] 135 mmol/L 136-145 [facility] WBC (Bld) [#/Vol] 15.0 10*3/uL 4.4-11.0 [facility] Blood erythrocytes count (nu mber/volume)Ordered By: Dr. Eubanks on 09-24-2022 RBC (Bld) [#/Vol] 4.54 10*6/uL 4.2-5.4 [facility] Blood hemoglobin measurement (mass/volume)Ordered By: Dr. Eubanks on 09-24-2022 Hemoglobin (Bld) [Mass/Vol] 12.6 g/dL 12.0-15.0 [facility] Blood lymphocytes/100 leukoc ytesOrdered By: Dr. Eubanks on 09-24-2022 Lymphocytes/100 WBC (Bld) 11.7 % 19-41 [facility] Blood monocytes/100 leukocyt esOrdered By: Dr. Eubanks on 09-24-2022 Monocytes/100 WBC (Bld) 5.0 % 0-10 [facility] Blood platelet mean volumeOr dered By: Dr. Eubanks on 09-24-2022 Platelet mean volume (Bld) [Entitic vol] 9.9 fL 6.2-12.0 [facility] Determination of erythrocyte mean corpuscular volume (MCV)Ordered By: Dr. Eubanks on 09-24-2022 MCV (RBC) [Entitic vol] 91.4 fL 81-99 [facility] Glucose Glucometer (dC) [M ass/Vol]Ordered By: Dr. Eubanks on 09-24-2022 Glucose [Mass/Vol] 216 mg/dL 74-106 [facility] Comment on above: MANAGEMENT OF PATIEN T CARE PER NURSING PROTOCOL Gram stain for investigation of transfusion reactionOrdered By: Dr. Chu on 09-24-2022 Microscopic observation Gram stain Nom (Unsp spec) [facility] Hematocrit Auto (Bld) [Volum e fraction]Ordered By: Dr. Eubanks on 09-24-2022 Hematocrit (Bld) [Volume fraction] 41.5 % 37-47 [facility] - Chemistry and C hemistry - challengeOrdered By: Dr. Eubanks on 09-24-2022 ALP [Catalytic activity/Vol] 60 U/L 45-117 [facility] ALT [Catalytic activity/Vol] 24 U/L 13-56 [facility] CO2 [Moles/Vol] 37.0 mmol/L 21.0-32.0 [facility] Globulin (S) [Mass/Vol] 4.5 g/dL 2.2-4.2 [facility] Urea nitrogen/Creatinine [Mass ratio] 31.4 mg/mg 10-20 [facility] - Hematology and Cell countsOrdered By: Dr. Eubanks on 09-24-2022 Erythrocyte distribution width (RBC) [Entitic vol] 50.2 fL 35.1-43.9 [facility] Erythrocyte distribution width (RBC) [Ratio] 15.5 % 11.6-14.6 [facility] Immature granulocytes/100 WBC (Bld) 1.100 % 0.0-0.9 [facility] Comment on above: IG% - Immature Granu locytes (promyelocytes, myelocytes and metamyelocytes) > 1% indicates that a LEFT SHIFT is Present. MCH (RBC) [Entitic mass] 27.8 pg 27.0-32.0 [facility] Nucleated RBC/100 WBC (Bld) [Ratio] 0.1 % 0-5 [facility] MCHC Auto (RBC) [Mass/Vol]Or dered By: Dr. Eubanks on 09-24-2022 MCHC (RBC) [Mass/Vol] 30.4 g/dL 32-36 [facility] No Panel InformationOrdered By: Dr. Eubanks on 09-24-2022 Estimated Creatinine Clearance Calc 60.88 ml/min [facility] Estimated GFR (MDRD) Amer 73 mL/min >60 [facility] Comment on above: GFR Calc Estimated GFR (MDRD) Non-Af Amer 60 mL/min >60 [facility] Comment on above: Non- GFR Calc Platelets bldOrdered By: Dr. Eubanks on 09-24-2022 Platelets (Bld) [#/Vol] 273 10*3/uL 150-450 [facility] Serum or plasma albumin yunior urement (mass/volume)Ordered By: Dr. Eubanks on 09-24-2022 Albumin [Mass/Vol] 3.4 g/dL 3.2-5.0 [facility] Serum or plasma albumin/glob ulin mass ratioOrdered By: Dr. Eubanks on 09-24-2022 Albumin/Globulin [Mass ratio] 0.8 {ratio} 0.9-2.4 [facility] Serum or plasma calcium yunior urement (mass/volume)Ordered By: Dr. Eubanks on 09-24-2022 Calcium [Mass/Vol] 9.5 mg/dL 8.5-10.1 [facility] Serum or plasma creatinine m easurement (mass/volume)Ordered By: Dr. Eubanks on 09-24-2022 Creatinine [Mass/Vol] 1.05 mg/dL 0.55-1.02 [facility] Comment on above: The validity of the calculated GFR & GFRAA in patients over 70 years has not been determined. Clinical correlation is essential. Serum or plasma urea nitroge n measurement (mass/volume)Ordered By: Dr. Eubanks on 09-24-2022 Urea nitrogen [Mass/Vol] 33 mg/dL 7-18 [facility] Thin prep Papanicolaou smear with manual screeningOrdered By: Dr. Eubanks on 09-24-2022 Thin prep Papanicolaou smear with manual screening 14 U/L 15-37 [facility] Thin prep Papanicolaou smear with manual screening 5 5-15 [facility] Basophil percentageOrdered B y: Dr. Chu on 09-23-2022 Cholesterol [Mass/Vol] 113 mg/dL <200 [facility] Comment on above: <200 mg/dL Desirable 200-240 mg/dL Borderline >240 mg/dL High Risk Triglyceride [Mass/Vol] 123 mg/dL <199 [facility] Comment on above: The drugs N-Acetylcy steine and Metamizole may falsely depress this assay.Serum Triglycerides Reference Interval Normal <150 mg/dL Borderline high 150 - 199 mg/dL High 200 - 499 mg/dL Very High > or = 500 mg/dL No Panel InformationOrdered By: Dr. Chu on 09-23-2022 Methicillin-Resist S.aureus DNA PCR Positive Negative [facility] Serum or plasma cholesterol in HDL measurement (mass/volume)Ordered By: Dr. Chu on 09-23-2022 Cholesterol in HDL [Mass/Vol] 33 mg/dL >40 [facility] Comment on above: The drugs N-Acetylcy steine and Metamizole may falsely depress this assay. Reference Range HDL <40 mg/dL Low HDL Cholesterol HDL >or= 60 mg/dL High HDL Cholesterol Serum or plasma cholesterol in VLDL measurement (mass/volume)Ordered By: Dr. Chu on 09-23-2022 Cholesterol in VLDL [Mass/Vol] 25 mg/dL 5-40 [facility] Serum or plasma low density lipoprotein (LDL) cholesterol measurement (mass/volume)Ordered By: Dr. Chu on 09-23-2022 Cholesterol in LDL [Mass/Vol] 55 mg/dL 0-130 [facility] Whole blood hemoglobin A1c/t otal hemoglobin ratio (mass fraction)Ordered By: Dr. Eubanks on 09-23-2022 HbA1c (Bld) [Mass fraction] 8.9 % 3.8-5.6 [facility] Comment on above: Normal < 5.7 % Predi abetic 5.7 - 6.4 % Diabetic >or= 6.5 % Please note range changes. Absolute lymphocyte counton 09-22-2022 Lymphocytes Auto (Unsp spec) [#/Vol] 2.39 10*3/uL 0.83-4.51 [facility] Work Phone: Assessment of wrist artery p atency prior to arterial punctureOrdered By: Dr. Chu on 09-22-2022 Arterial patency Wrist artery --pre arterial puncture Positive [facility] Base excessOrdered By: Dr. Juan José enciso on 09-22-2022 Base excess Calc (BldV) [Moles/Vol] 8 mmol/L -2-2 [facility] Basophil percentageOrdered B y: Dr. Pitts on 09-22-2022 Lactate [Moles/Vol] 2.5 mmol/L 0.4-2.0 [facility] Comment on above: Critical Result(s) C alled at: 22:04:36 09/22/2022 to [facility] by: sydnee feliciano. Results read back by same. Basophil percentage 10-25 SEEN /hpf 0-5 [facility] Basophil percentageOrdered B y: Dr. Chu on 09-22-2022 Basophil percentage 34.2 mmol/L 22-[address] [facility] Basophils/100 WBC (Bld) 75 % 95-99 [facility] Basophil percentage 3.0 mg/dL 2.5-4.9 [facility] Basophil percentageon 2021 Lactate [Moles/Vol] 3.0 mmol/L 0.4-2.0 [facility] Work Phone: Basophils/100 WBC (Bld) 0.6 % 0-1 [facility] Work Phone: Chloride [Moles/Vol] 92 mmol/L 98-[address] [facility] Work Phone: Eosinophils/100 WBC (Bld) 1.7 % 0-5 [facility] Work Phone: Glucose [Mass/Vol] 307 mg/dL 74-106 [facility] Work Phone: Comment on above: Glucose result great er than or equal to 200 mg/dLsuggests DIABETES MELLITUS per A.D.A. criteria. Neutrophils (Bld) [#/Vol] 11.3 10*3/uL 2.0-7.7 [facility] Work Phone: Neutrophils/100 WBC (Bld) 75.3 % 47-70 [facility] Work Phone: Potassium [Moles/Vol] 4.1 mmol/L 3.5-5.1 [facility] Work Phone: Sodium [Moles/Vol] 135 mmol/L 136-145 [facility] Work Phone: WBC (Bld) [#/Vol] 15.0 10*3/uL 4.4-11.0 [facility] Work Phone: [phone] Bilirubin Test strip Ql (U)O rdered By: Dr. Pitts on 09-22-2022 Bilirubin Ql (U) Negative Negative [facility] Blood erythrocytes count (nu mber/volume)on 09-22-2022 RBC (Bld) [#/Vol] 4.47 10*6/uL 4.2-5.4 [facility] Work Phone: Blood hemoglobin measurement (mass/volume)on 09-22-2022 Hemoglobin (Bld) [Mass/Vol] 12.4 g/dL 12.0-15.0 [facility] Work Phone: Blood lymphocytes/100 leukoc yteson 09-22-2022 Lymphocytes/100 WBC (Bld) 16.0 % 19-41 [facility] Work Phone: Blood monocytes/100 leukocyt eson 09-22-2022 Monocytes/100 WBC (Bld) 5.1 % 0-10 [facility] Work Phone: Blood platelet mean volumeon 09-22-2022 Platelet mean volume (Bld) [Entitic vol] 9.9 fL 6.2-12.0 [facility] Work Phone: CO2 (BldA) [Partial pressure ]Ordered By: Dr. Chu on 09-22-2022 CO2 (Bld) [Partial pressure] 65.9 mm[Hg] 35-45 [facility] Determination of erythrocyte mean corpuscular volume (MCV)on 09-22-2022 MCV (RBC) [Entitic vol] 94.4 fL 81-99 [facility] Work Phone: Direct bilirubinOrdered By: Dr. Chu on 09-22-2022 Bilirubin.direct [Mass/Vol] 0.15 mg/dL 0.00-0.30 [facility] Hematocrit Auto (Bld) [Volum e fraction]on 09-22-2022 Hematocrit (Bld) [Volume fraction] 42.2 % 37-47 [facility] Work Phone: INR in Blood by Coagulation assayOrdered By: Dr. Pitts on 09-22-2022 INR Coag (Bld) [Relative time] 1.2 {INR} [facility] Ketones Test strip Ql (U)Ord ered By: Dr. Pitts on 09-22-2022 Ketones Ql (U) Negative Negative [facility] - Chemistry and C hemistry - challengeOrdered By: Dr. Chu on 09-22-2022 Magnesium [Mass/Vol] 1.8 mg/dL 1.6-2.[address] [facility] - Chemistry and C hemistry - challengeon 09-22-2022 CO2 [Moles/Vol] 34.0 mmol/L 21.0-32.0 [facility] Work Phone: Urea nitrogen/Creatinine [Mass ratio] 22.5 mg/mg 10-20 [facility] Work Phone: Laboratory - Chemistry and C hemistry - challengeOrdered By: Dr. Pitts on 09-22-2022 Natriuretic peptide B (Bld) [Mass/Vol] 5.2 pg/mL 0-100 [facility] - CoagulationOrde red By: Dr. Pitts on 09-22-2022 PT Coag (PPP) [Time] 15.3 s 11.7-14.[address] [facility] - Hematology and Cell countson 09-22-2022 Erythrocyte distribution width (RBC) [Entitic vol] 53.4 fL 35.1-43.9 [facility] Work Phone: Erythrocyte distribution width (RBC) [Ratio] 15.9 % 11.6-14.6 [facility] Work Phone: Immature granulocytes/100 WBC (Bld) 1.300 % 0.0-0.9 [facility] Work Phone: Comment on above: IG% - Immature Granu locytes (promyelocytes, myelocytes and metamyelocytes) > 1% indicates that a LEFT SHIFT is Present. MCH (RBC) [Entitic mass] 27.7 pg 27.0-32.0 [facility] Work Phone: Nucleated RBC/100 WBC (Bld) [Ratio] 0.3 % 0-5 [facility] Work Phone: MCHC Auto (RBC) [Mass/Vol]on 09-22-2022 MCHC (RBC) [Mass/Vol] 29.4 g/dL 32-36 [facility] Work Phone: Mucus LM Ql (Urine sed)Order ed By: Dr. Pitts on 09-22-2022 Mucus Ql (Urine sed) 0 SEEN /hpf [facility] Nitrite Test strip Ql (U)Ord ered By: Dr. Pitts on 09-22-2022 Nitrite Ql (U) Positive Negative [facility] No Panel InformationOrdered By: Dr. Chu on 09-22-2022 Blood Gas Oxygen Percent 50 [facility] Blood Gas Sample Site L Radial [facility] Blood Gas Specimen Type [facility] CO2 36 mmol/L [facility] Oxygen Delivery Device Venti Mask [facility] Troponin I High Sensitivity 25 pg/mL 3.0-54.0 [facility] Comment on above: Please Note: New Laisha t Units and Gender Specific Reference Ranges. For more information see Policy Stat Procedure [place] High Sensitivity Troponin (TNIH) and attachments. No Panel Informationon 09-22 Estimated Creatinine Clearance Calc 46.32 ml/min [facility] Work Phone: Estimated GFR (MDRD) Amer 53 mL/min >60 [facility] Work Phone: Comment on above: GFR Calc Estimated GFR (MDRD) Non-Af Amer 44 mL/min >60 [facility] Work Phone: Comment on above: Non- GFR Calc Oxygen (BldA) [Partial press ure]Ordered By: Dr. Chu on 09-22-2022 Oxygen (Bld) [Partial pressure] 44 mmHG 75-100 [facility] Platelets bldon 09-22-2022 Platelets (Bld) [#/Vol] 305 10*3/uL 150-450 [facility] Work Phone: Protein Test strip Ql (U)Ord ered By: Dr. Pitts on 09-22-2022 Protein Ql (U) Negative Negative [facility] Serum or plasma calcium yunior urement (mass/volume)on 09-22-2022 Calcium [Mass/Vol] 8.8 mg/dL 8.5-10.1 [facility] Work Phone: Serum or plasma creatinine m easurement (mass/volume)on 09-22-2022 Creatinine [Mass/Vol] 1.38 mg/dL 0.55-1.02 [facility] Work Phone: Comment on above: The validity of the calculated GFR & GFRAA in patients over 70 years has not been determined. Clinical correlation is essential. Serum or plasma urea nitroge n measurement (mass/volume)on 09-22-2022 Urea nitrogen [Mass/Vol] 31 mg/dL 7-18 [facility] Work Phone: Squamous epithelial cells de tection in urine sediment by light microscopyOrdered By: Dr. Pitts on 09-22-2022 Epithelial cells.squamous LM Ql (Urine sed) 0 SEEN /hpf 5-10 [facility] Thin prep Papanicolaou smear with manual screeningon 09-22-2022 Thin prep Papanicolaou smear with manual screening 9 5-15 [facility] Work Phone: Urine blood detectionOrdered By: Dr. Pitts on 09-22-2022 RBC Ql (U) Negative Negative [facility] RBC Ql (U) 0 SEEN /hpf 0-5 [facility] Urine clarityOrdered By: Dr. Pitts on 09-22-2022 Clarity (U) Clear Clear [facility] Urine color determinationOrd ered By: Dr. Pitts on 09-22-2022 Color (U) Straw Yellow [facility] Urine glucose detectionOrder ed By: Dr. Pitts on 09-22-2022 Glucose Ql (U) 1000 mg/dl Normal [facility] Urine leukocyte esterase det ection by dipstickOrdered By: Dr. Pitts on 09-22-2022 Leukocyte esterase Test strip Ql (U) 25 /ul Negative [facility] Urine pHOrdered By: Dr. López zurita on 09-22-2022 pH (U) 6.0 [pH] 5.0 - 8.0 [facility] Urine sediment bacteria coun t by microscopy (number/high power field)Ordered By: Dr. Pitts on 09-22-2022 Bacteria LM.HPF (Urine sed) [#/Area] 3 /[HPF] None Seen [facility] Urine specific gravity measu rementOrdered By: Dr. Pitts on 09-22-2022 Specific gravity (U) [Rel density] 1.010 1.002-1.030 [facility] Urobilinogen Auto test strip Ql (U)Ordered By: Dr. Pitts on 09-22-2022 Urobilinogen Ql (U) Normal mg/dl Normal [facility] pH measurementOrdered By: Dr Susan Chu on 09-22-2022 pH (Unsp spec) 7.32 [pH] 7.35-7.45 [facility] XR Chest PA and Lateralon IMPRESSION: Slight prominence of the bilateral pulmonary markings. 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 Transcribe Date/Time: Jul 09 2022 12:10P Dictated by : ROCKY MAC MD This examination was interpreted and the report reviewed and electronically signed by: ROCKY MAC MD on Jul 09 2022 12:10PM EST ZZZ_DO_NOT_ USE_DIVISIO N OF RADIOLOGY * * *Final Report* * * DATE OF EXAM: Jul 09 2022 11:59AM WOX [id number] - XR CHEST 2V FRONTAL/LAT / PROCEDURE REASON: multiple diagnoses * * * * Physician Interpretation * * * * EXAMINATION: CHEST RADIOGRAPH (2 VIEW FRONTAL & LATERAL) CLINICAL HISTORY: Chronic diastolic heart failure (HCC) Decreased lung sounds MQ: XC2_6 EXAM DATE/TIME: 07/09/2022 11:59 AM COMPARISON: Abdomen x-ray on 08/01/2021 RESULT: Lines, tubes, and devices: None. Lungs and pleura: Slight prominence of the bilateral pulmonary markings is noted. No consolidation. No lung mass. No pleural effusion. No pneumothorax. Cardiomediastinal silhouette: Stable cardiomediastinal silhouette. Bones and soft tissues: Unremarkable. ZZZ_DO_NOT_ USE_DIVISIO N OF RADIOLOGY Provider, [facility] [place] - 07/09/2022 * * *Final Report* * * DATE OF EXAM: Jul 09 2022 11:59AM WOX [id number] - XR CHEST 2V FRONTAL/LAT / PROCEDURE REASON: multiple diagnoses * * * * Physician Interpretation * * * * EXAMINATION: CHEST RADIOGRAPH (2 VIEW FRONTAL & LATERAL) CLINICAL HISTORY: Chronic diastolic heart failure (HCC) Decreased lung sounds MQ: XC2_6 EXAM DATE/TIME: 07/09/2022 11:59 AM COMPARISON: Abdomen x-ray on 08/01/2021 RESULT: Lines, tubes, and devices: None. Lungs and pleura: Slight prominence of the bilateral pulmonary markings is noted. No consolidation. No lung mass. No pleural effusion. No pneumothorax. Cardiomediastinal silhouette: Stable cardiomediastinal silhouette. Bones and soft tissues: Unremarkable. IMPRESSION IMPRESSION: Slight prominence of the bilateral pulmonary markings. 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 Transcribe Date/Time: Jul 09 2022 12:10P Dictated by : ROCKY MAC MD This examination was interpreted and the report reviewed and electronically signed by: ROCKY MAC MD on Jul 09 2022 12:10PM EST [facility] Radiology Study observation (narrative) [facility] XR Chest PA and LateralOrder ed By: [facility] Provider on 07-09-2022 [facility] Absolute lymphocyte counton 03-31-2022 Lymphocytes Auto (Unsp spec) [#/Vol] 3.25 10*3/uL 0.83-4.51 [facility] Work Phone: Basophil percentageon 2021 Basophils/100 WBC (Bld) 0.7 % 0-1 [facility] Work Phone: Chloride [Moles/Vol] 93 mmol/L 98-[address] [facility] Work Phone: Eosinophils/100 WBC (Bld) 2.5 % 0-5 [facility] Work Phone: Glucose [Mass/Vol] 226 mg/dL 74-106 [facility] Work Phone: Comment on above: Glucose result great er than or equal to 200 mg/dLsuggests DIABETES MELLITUS per A.D.A. criteria. Neutrophils (Bld) [#/Vol] 8.0 10*3/uL 2.0-7.7 [facility] Work Phone: Neutrophils/100 WBC (Bld) 65.1 % 47-70 [facility] Work Phone: Potassium [Moles/Vol] 3.7 mmol/L 3.5-5.1 [facility] Work Phone: Sodium [Moles/Vol] 134 mmol/L 136-145 [facility] Work Phone: WBC (Bld) [#/Vol] 12.2 10*3/uL 4.4-11.0 [facility] Work Phone: Blood erythrocytes count (nu mber/volume)on 03-31-2022 RBC (Bld) [#/Vol] 3.91 10*6/uL 4.2-5.4 [facility] Work Phone: Blood hemoglobin measurement (mass/volume)on 03-31-2022 Hemoglobin (Bld) [Mass/Vol] 11.7 g/dL 12.0-15.0 [facility] Work Phone: Blood lymphocytes/100 leukoc yteson 03-31-2022 Lymphocytes/100 WBC (Bld) 26.6 % 19-41 [facility] Work Phone: Blood monocytes/100 leukocyt eson 03-31-2022 Monocytes/100 WBC (Bld) 4.2 % 0-10 [facility] Work Phone: Blood platelet mean volumeon 03-31-2022 Platelet mean volume (Bld) [Entitic vol] 10.4 fL 6.2-12.0 [facility] Work Phone: Determination of erythrocyte mean corpuscular volume (MCV)on 03-31-2022 MCV (RBC) [Entitic vol] 94.9 fL 81-99 [facility] Work Phone: Hematocrit Auto (Bld) [Volum e fraction]on 03-31-2022 Hematocrit (Bld) [Volume fraction] 37.1 % 37-47 [facility] Work Phone: Laboratory - Chemistry and C hemistry - challengeon 03-31-2022 CO2 [Moles/Vol] 35.0 mmol/L 21.0-32.0 [facility] Work Phone: Natriuretic peptide B (Bld) [Mass/Vol] 5.9 pg/mL 0-100 [facility] Work Phone: Urea nitrogen/Creatinine [Mass ratio] 16.5 mg/mg 10-20 [facility] Work Phone: Laboratory - Hematology and Cell countson 03-31-2022 Erythrocyte distribution width (RBC) [Entitic vol] 50.9 fL 35.1-43.9 [facility] Work Phone: Erythrocyte distribution width (RBC) [Ratio] 14.9 % 11.6-14.6 [facility] Work Phone: Immature granulocytes/100 WBC (Bld) 0.900 % 0.0-0.9 [facility] Work Phone: Comment on above: IG% - Immature Granu locytes (promyelocytes, myelocytes and metamyelocytes) > 1% indicates that a LEFT SHIFT is Present. MCH (RBC) [Entitic mass] 29.9 pg 27.0-32.0 [facility] Work Phone: Nucleated RBC/100 WBC (Bld) [Ratio] 0 % 0-5 [facility] Work Phone: MCHC Auto (RBC) [Mass/Vol]on 03-31-2022 MCHC (RBC) [Mass/Vol] 31.5 g/dL 32-36 [facility] Work Phone: No Panel Informationon 03-31 Estimated Creatinine Clearance Calc 59.27 ml/min [facility] Work Phone: Estimated GFR (MDRD) Amer 70 mL/min >60 [facility] Work Phone: Comment on above: GFR Calc Estimated GFR (MDRD) Non-Af Amer 58 mL/min >60 [facility] Work Phone: Comment on above: Non- GFR Calc Troponin I High Sensitivity 19 pg/mL 3.0-54.0 [facility] Work Phone: Comment on above: Please Note: New Laisha t Units and Gender Specific Reference Ranges. For more information see Policy Stat Procedure [place] High Sensitivity Troponin (TNIH) and attachments. Platelets bldon 03-31-2022 Platelets (Bld) [#/Vol] 302 10*3/uL 150-450 [facility] Work Phone: Serum or plasma calcium yunior urement (mass/volume)on 03-31-2022 Calcium [Mass/Vol] 9.3 mg/dL 8.5-10.1 [facility] Work Phone: Serum or plasma creatinine m easurement (mass/volume)on 03-31-2022 Creatinine [Mass/Vol] 1.09 mg/dL 0.55-1.02 [facility] Work Phone: Comment on above: The validity of the calculated GFR & GFRAA in patients over 70 years has not been determined. Clinical correlation is essential. Serum or plasma urea nitroge n measurement (mass/volume)on 03-31-2022 Urea nitrogen [Mass/Vol] 18 mg/dL 7-18 [facility] Work Phone: Thin prep Papanicolaou smear with manual screeningon 03-31-2022 Thin prep Papanicolaou smear with manual screening 6 5-15 [facility] Work Phone: UA DIP, URINE (POC)on 2021 BILIRUBIN UA (POCT) Negative Negative [facility] CLARITY UA (POCT) Clear [facility] COLOR UA (POCT) Yellow [facility] GLUCOSE UA (POCT) 500 mg/dL Abnormal Negative mg/dL [facility] HEMOGLOBIN/BLOOD UA (POCT) Negative Negative [facility] KETONE UA (POCT) Negative Negative mg/dL [facility] LEUKOCYTES UA (POCT) Negative Negative [facility] NITRITE UA (POCT) Negative Negative [facility] PH UA (POCT) 7.0 4.5 - 8.0 [facility] Protein Ql (U) Negative Negative mg/dL [facility] SPECIFIC GRAVITY UA (POCT) 1.020 1.005 - 1.030 [facility] UROBILINOGEN UA (POCT) 0.2 E.U./dL Normal E.U./ dL [facility] Absolute lymphocyte counton 01-18-2022 Lymphocytes Auto (Unsp spec) [#/Vol] 2.12 10*3/uL 0.83-4.51 [facility] Work Phone: Basophil percentageon 2021 Basophils/100 WBC (Bld) 0.5 % 0-1 [facility] Work Phone: Chloride [Moles/Vol] 93 mmol/L 98-107 [facility] Work [facility]: Eosinophils/100 WBC (Bld) 0.1 % 0-5 [facility] Work Phone: Glucose [Mass/Vol] 309 mg/dL 74-106 [facility] Work Phone: Comment on above: Glucose result great er than or equal to 200 mg/dLsuggests DIABETES MELLITUS per A.D.A. criteria. Neutrophils (Bld) [#/Vol] 10.4 10*3/uL 2.0-7.7 [facility] Work Phone: Neutrophils/100 WBC (Bld) 78.2 % 47-70 [facility] Work Phone: Potassium [Moles/Vol] 4.1 mmol/L 3.5-5.[address] [facility] [facility] Work Phone: Sodium [Moles/Vol] 133 mmol/L 136-145 [facility] Work Phone: WBC (Bld) [#/Vol] 13.3 10*3/uL 4.4-11.0 [facility] Work Phone: [phone] Blood erythrocytes count (nu mber/volume)on 01-18-2022 RBC (Bld) [#/Vol] 4.23 10*6/uL 4.2-5.4 [facility] Work Phone: Blood hemoglobin measurement (mass/volume)on 01-18-2022 Hemoglobin (Bld) [Mass/Vol] 12.5 g/dL 12.0-15.0 [facility] Work Phone: Blood lymphocytes/100 leukoc yteson 01-18-2022 Lymphocytes/100 WBC (Bld) 16.0 % 19-41 [facility] Work Phone: Blood monocytes/100 leukocyt eson 01-18-2022 Monocytes/100 WBC (Bld) 4.7 % 0-10 [facility] Work Phone: Blood platelet mean volumeon 01-18-2022 Platelet mean volume (Bld) [Entitic vol] 10.1 fL 6.2-12.0 [facility] Work Phone: Determination of erythrocyte mean corpuscular volume (MCV)on 01-18-2022 MCV (RBC) [Entitic vol] 92.7 fL 81-99 [facility] Work Phone: Glucose Glucometer (BldC) [M ass/Vol]on 01-18-2022 Glucose [Mass/Vol] 282 mg/dL 70-110 [facility] Work Phone: Comment on above: MANAGEMENT OF PATIEN T CARE PER NURSING PROTOCOL Hematocrit Auto (Bld) [Volum e fraction]on 01-18-2022 Hematocrit (Bld) [Volume fraction] 39.2 % 37-47 [facility] Work Phone: Laboratory - Chemistry and C hemistry - challengeon 01-18-2022 CO2 [Moles/Vol] 35.0 mmol/L 21.0-32.0 [facility] Work Phone: Urea nitrogen/Creatinine [Mass ratio] 38.4 mg/mg 10-20 [facility] Work Phone: Laboratory - Hematology and Cell countson 01-18-2022 Erythrocyte distribution width (RBC) [Entitic vol] 45.5 fL 35.1-43.9 [facility] Work Phone: Erythrocyte distribution width (RBC) [Ratio] 13.5 % 11.6-14.6 [facility] Work Phone: Immature granulocytes/100 WBC (Bld) 0.500 % 0.0-0.9 [facility] Work Phone: Comment on above: IG% - Immature Granu locytes (promyelocytes, myelocytes and metamyelocytes) > 1% indicates that a LEFT SHIFT is Present. MCH (RBC) [Entitic mass] 29.6 pg 27.0-32.0 [facility] Work Phone: Nucleated RBC/100 WBC (Bld) [Ratio] 0 % 0-5 [facility] Work Phone: MCHC Auto (RBC) [Mass/Vol]on 01-18-2022 MCHC (RBC) [Mass/Vol] 31.9 g/dL 32-36 [facility] Work Phone: No Panel Informationon 01-18 Estimated Creatinine Clearance Calc 65.25 ml/min [facility] Work Phone: Estimated GFR (MDRD) Amer 78 mL/min >60 [facility] Work Phone: Comment on above: GFR Calc Estimated GFR (MDRD) Non-Af Amer 65 mL/min >60 [facility] Work Phone: Comment on above: Non- GFR Calc Platelets bldon 01-18-2022 Platelets (Bld) [#/Vol] 320 10*3/uL 150-450 [facility] Work Phone: Serum or plasma calcium yunior urement (mass/volume)on 01-18-2022 Calcium [Mass/Vol] 10.2 mg/dL 8.5-10.1 [facility] Work Phone: Serum or plasma creatinine m easurement (mass/volume)on 01-18-2022 Creatinine [Mass/Vol] 0.99 mg/dL 0.55-1.02 [facility] Work Phone: Comment on above: The validity of the calculated GFR & GFRAA in patients over 70 years has not been determined. Clinical correlation is essential. Serum or plasma urea nitroge n measurement (mass/volume)on 01-18-2022 Urea nitrogen [Mass/Vol] 38 mg/dL 7-18 [facility] Work Phone: Thin prep Papanicolaou smear with manual screeningon 01-18-2022 Thin prep Papanicolaou smear with manual screening 5 5-15 [facility] Work Phone: Laboratory - Microbiology an d Antimicrobial susceptibilityon 01-17-2022 Bacteria identified Cx Nom (Bld) No growth in 5 days. [facility] Work Phone: Basophil percentageon 2021 Cholesterol [Mass/Vol] 116 mg/dL <200 [facility] Work Phone: Comment on above: <200 mg/dL Desirable 200-240 mg/dL Borderline >240 mg/dL High Risk Triglyceride [Mass/Vol] 95 mg/dL [facility] Work Phone: Comment on above: The drugs N-Acetylcy steine and Metamizole may falsely depress this assay.Serum Triglycerides Reference Interval Normal <150 mg/dL Borderline high 150 - 199 mg/dL High 200 - 499 mg/dL Very High > or = 500 mg/dL Gram stain for investigation of transfusion reactionon 01-16-2022 Microscopic observation Gram stain Nom (Unsp spec) [facility] Work Phone: No Panel Informationon 01-16 Methicillin-Resist S.aureus DNA PCR Negative Negative [facility] Work Phone: Serum or plasma cholesterol in HDL measurement (mass/volume)on 01-16-2022 Cholesterol in HDL [Mass/Vol] 41 mg/dL [facility] Work Phone: Comment on above: The drugs N-Acetylcy steine and Metamizole may falsely depress this assay. Reference Range HDL <40 mg/dL Low HDL Cholesterol HDL >or= 60 mg/dL High HDL Cholesterol Serum or plasma cholesterol in VLDL measurement (mass/volume)on 01-16-2022 Cholesterol in VLDL [Mass/Vol] 19 mg/dL 5-40 [facility] Work Phone: Serum or plasma low density lipoprotein (LDL) cholesterol measurement (mass/volume)on 01-16-2022 Cholesterol in LDL [Mass/Vol] 56 mg/dL 0-130 [facility] Work Phone: Whole blood hemoglobin A1c/t otal hemoglobin ratio (mass fraction)on 01-16-2022 HbA1c (Bld) [Mass fraction] 9.5 % 3.8-5.6 [facility] Work Phone: Comment on above: Normal < 5.7 % Predi abetic 5.7 - 6.4 % Diabetic >or= 6.5 % Please note range changes. Base excesson 01-15-2022 Base excess Calc (BldV) [Moles/Vol] 7 mmol/L -2-2 [facility] Work Phone: Basophil percentageon 2021 Basophil percentage 33.8 mmol/L 22-[address] [facility] Work Phone: Basophils/100 WBC (Bld) 88 % 95-99 [facility] Work Phone: Lactate [Moles/Vol] 1.7 mmol/L 0.4-2.0 [facility] Work Phone: Bilirubin [Mass/Vol] 0.40 mg/dL 0.20-1.[address] [facility] Work Phone: Comment on above: For patients on eltr ombopag therapy, use of Dimension [place] TBIL is not recommended. Protein [Mass/Vol] 7.5 g/dL 6.4-8.2 [facility] Work Phone: CO2 (BldA) [Partial pressure ]on 01-15-2022 CO2 (Bld) [Partial pressure] 75.1 mm[Hg] 35-45 [facility] Work Phone: Laboratory - Chemistry and C hemistry - challengeon 01-15-2022 ALP [Catalytic activity/Vol] 85 U/L 45-117 [facility] Work Phone: ALT [Catalytic activity/Vol] 25 U/L 13-56 [facility] Work Phone: Globulin (S) [Mass/Vol] 4.4 g/dL 2.2-4.2 [facility] Work Phone: Natriuretic peptide B (Bld) [Mass/Vol] 22.1 pg/mL 0-100 [facility] Work Phone: No Panel Informationon 01-15 Streptococcus pneumoniae Antigen (M [facility] Work Phone: Troponin I High Sensitivity 26 pg/mL 3.0-54.0 [facility] Work Phone: Comment on above: Please Note: New Laisha t Units and Gender Specific Reference Ranges. For more information see Policy Stat Procedure [place] High Sensitivity Troponin (TNIH) and attachments. Bld Gas Crit Called To/Read Back By Yes [facility] Work Phone: Blood Gas Liter Flow 10.0 /min [facility] Work Phone: Blood Gas Notified Whom Dr Chu [facility] Work Phone: Blood Gas Sample Site R Brach [facility] Work Phone: [phone] Blood Gas Specimen Type ART [facility] Work Phone: Blood Gas Total CO2 36 mmol/L [facility] Work Phone: Oxygen Delivery Device HFNC [facility] Work Phone: Oxygen (BldA) [Partial press ure]on 01-15-2022 Oxygen (Bld) [Partial pressure] 66 mmHG 75-100 [facility] Work Phone: Serum or plasma albumin yunior urement (mass/volume)on 01-15-2022 Albumin [Mass/Vol] 3.1 g/dL 3.2-5.0 [facility] Work Phone: Serum or plasma albumin/glob ulin mass ratioon 01-15-2022 Albumin/Globulin [Mass ratio] 0.7 {ratio} 0.9-2.4 [facility] Work Phone: Thin prep Papanicolaou smear with manual screeningon 01-15-2022 Thin prep Papanicolaou smear with manual screening 20 U/L 15-37 [facility] Work Phone: pH measurementon 01-15-2022 pH (Unsp spec) 7.26 [pH] 7.35-7.45 [facility] Work Phone: XR Chest PA and Lateralon IMPRESSION: Pulmonary vascular congestion/edema. No pleural effusion. An infectious process is not excluded. 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: PHIL Transcribe Date/Time: Aug 01 2021 3:44P Dictated by : ROC PRICE MD This examination was interpreted and the report reviewed and electronically signed by: ROC PRICE MD on Aug 01 2021 3:45PM [facility] DIVISION OF RADIOLOGY * * *Final Report* * * DATE OF EXAM: Aug 01 2021 3:40PM WOX [id number] - XR CHEST 2V FRONTAL/LAT / PROCEDURE REASON: multiple diagnoses * * * * Physician Interpretation * * * * EXAMINATION: CHEST RADIOGRAPH (2 VIEW FRONTAL & LATERAL) CLINICAL HISTORY: Chronic respiratory failure with hypoxia (HCC) Acute on chronic congestive heart failure, unspecified heart failure type (HCC) MQ: XC2_6 EXAM DATE/TIME: 08/01/2021 3:40 PM COMPARISON: 09/01/2020 RESULT: Lines, tubes, and devices: None. Lungs and pleura: Pulmonary vascular congestion/edema. No pneumothorax or significant pleural effusion. Cardiomediastinal silhouette: Stable Bones and soft tissues: No acute osseous abnormality. DIVISION OF RADIOLOGY Provider, [facility] [place] - 08/01/2021 * * *Final Report* * * DATE OF EXAM: Aug 01 2021 3:40PM WOX [id number] - XR CHEST 2V FRONTAL/LAT / PROCEDURE REASON: multiple diagnoses * * * * Physician Interpretation * * * * EXAMINATION: CHEST RADIOGRAPH (2 VIEW FRONTAL & LATERAL) CLINICAL HISTORY: Chronic respiratory failure with hypoxia (HCC) Acute on chronic congestive heart failure, unspecified heart failure type (HCC) MQ: XC2_6 EXAM DATE/TIME: 08/01/2021 3:40 PM COMPARISON: 09/01/2020 RESULT: Lines, tubes, and devices: None. Lungs and pleura: Pulmonary vascular congestion/edema. No pneumothorax or significant pleural effusion. Cardiomediastinal silhouette: Stable Bones and soft tissues: No acute osseous abnormality. IMPRESSION IMPRESSION: Pulmonary vascular congestion/edema. No pleural effusion. An infectious process is not excluded. 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: PHIL Transcribe Date/Time: Aug 01 2021 3:44P Dictated by : ROC PRICE MD This examination was interpreted and the report reviewed and electronically signed by: ROC PRICE MD on Aug 01 2021 3:45PM EST [facility] Radiology Study observation (narrative) Denita wilson [facility] XR Chest PA and LateralOrder ed By: [facility] Provider on 08-01-2021 [facility] Culture, urine Bacteria identified Cx Nom (U) Escherichia coli [facility] Work Phone: Gram stain for investigation of transfusion reaction Microscopic observation Gram stain Nom (Unsp spec) [facility] Work Phone: Influenza virus A and B and SARS-CoV-2 (COVID-19) Ag panel - Upper respiratory specim SARS-CoV-2 (COVID-19) RNA SURESH+probe Ql (Resp) [facility] Work Phone: Laboratory - Microbiology an d Antimicrobial susceptibility Bacteria identified Cx Nom (Bld) No growth in 5 days. [facility] Work Phone: Microbial respiratory cultur e Bacteria identified Respiratory culture Nom (Unsp spec) [facility] Work Phone: No Panel Information SARS-CoV-2 & FLU Antigen (Rapid) [facility] Work Phone: RSV Ag EIA RSV Ag Immune stain Ql (Tiss) [facility] Work Phone: S. pyogenes Ag IF Ql (Throat ) S. pyogenes Ag IA Ql (Unsp spec) Streptococcus Group A [facility] Work Phone: Vital Signs Date Time Vital Sign Value Performing Clinician Facility 08-19-2025 10:45-0400 Body temperature 97.8 [degF] Delmy Solorzano MD Work Phone: [facility] 08-19-2025 10:45-0400 Diastolic blood pressure 76 mm[Hg] Delmy Solorzano MD Work Phone: [facility] 08-19-2025 10:45-0400 Heart rate 91 /min Delmy Solorzano MD Work Phone: [facility] 08-19-2025 10:45-0400 Inhaled oxygen flow rate 5 L/min Delmy Solorzano MD Work Phone: [facility] 08-19-2025 10:45-0400 Respiratory rate 20 /min Delmy Solorzano MD Work Phone: [facility] 08-19-2025 10:45-0400 SaO2% (BldA) [Mass fraction] 97 % Delmy Solorzano MD Work Phone: [facility] 08-19-2025 10:45-0400 Systolic blood pressure 150 mm[Hg] Delmy Solorzano MD Work Phone: [facility] 08-19-2025 06:00-0400 Body mass index (BMI) [Ratio] 66.7 kg/m2 Delmy Solorzano MD Work Phone: [facility] 08-19-2025 06:00-0400 Body weight 181.7 kg Delmy Solorzano MD Work Phone: [facility] 08-19-2025 03:30-0400 Inhaled oxygen concentration 30 % Delmy Solorzano MD Work Phone: [facility] 08-17-2025 14:30-0400 Body height 165.1 cm Delmy Solorzano MD Work Phone: [facility] 08-16-2025 21:00-0400 Body temperature 98.4 [degF] Delmy Solorzano MD Work Phone: [facility] 08-16-2025 21:00-0400 Diastolic blood pressure 71 mm[Hg] Delmy Solorzano MD Work Phone: [facility] 08-16-2025 21:00-0400 Heart rate 88 /min Delmy Solorzano MD Work Phone: [facility] 08-16-2025 21:00-0400 Inhaled oxygen flow rate 5 L/min Delmy Solorzano MD Work Phone: [facility] 08-16-2025 21:00-0400 Respiratory rate 19 /min Delmy Solorzano MD Work Phone: [facility] 08-16-2025 21:00-0400 SaO2% (BldA) [Mass fraction] 97 % Delmy Solorzano MD Work Phone: [facility] 08-16-2025 21:00-0400 Systolic blood pressure 146 mm[Hg] Delmy Solorzano MD Work Phone: [facility] 08-16-2025 18:39-0400 Body mass index (BMI) [Ratio] 67.3 kg/m2 Delmy Solorzano MD Work Phone: [facility] 08-16-2025 18:39-0400 Body weight 185.5 kg Delmy Solorzano MD Work Phone: [facility] 08-16-2025 18:21-0400 Body height 166.37 cm Delmy Solorzano MD Work Phone: [facility] 03-28-2024 14:00-0400 Body temperature 96.9 [degF] [facility] 03-28-2024 14:00-0400 Diastolic blood pressure 61 mm[Hg] [facility] 03-28-2024 14:00-0400 Heart rate 89 /min [facility] 03-28-2024 14:00-0400 Respiratory rate 119 /min [facility] 03-28-2024 14:00-0400 SaO2% (BldA) [Mass fraction] 96 % [facility] 03-28-2024 14:00-0400 Systolic blood pressure 111 mm[Hg] [facility] 03-28-2024 00:18-0400 Inhaled oxygen flow rate 4 L/min [facility] 03-27-2024 22:21-0400 Body mass index (BMI) [Ratio] 59.6 kg/m2 [facility] 03-27-2024 22:21-0400 Body weight 162.7 kg [facility] 03-27-2024 22:19-0400 Body height 165.1 cm [facility] 01-15-2024 00:54-0500 Body temperature 98 [degF] [facility] 01-15-2024 00:54-0500 Diastolic blood pressure 82 mm[Hg] [facility] 01-15-2024 00:54-0500 Heart rate 88 /min [facility] 01-15-2024 00:54-0500 Respiratory rate 18 /min [facility] 01-15-2024 00:54-0500 SaO2% (BldA) [Mass fraction] 96 % [facility] 01-15-2024 00:54-0500 Systolic blood pressure 168 mm[Hg] [facility] 01-14-2024 22:43-0500 Body mass index (BMI) [Ratio] 59.9 kg/m2 [facility] 01-14-2024 22:43-0500 Body weight 163.4 kg [facility] 01-14-2024 22:27-0500 Body height 165.1 cm [facility] 01-14-2024 22:27-0500 Inhaled oxygen flow rate 5 L/min [facility] 07-15-2023 13:24-0400 Inhaled oxygen flow rate 4 L/min Dr. Tino Oreilly Work Phone: [facility] 07-15-2023 13:24-0400 SaO2% (BldA) [Mass fraction] 94 % Dr. Tino Oreilly Work Phone: [facility] 07-15-2023 12:46-0400 Body height 165.[address] Tino Oreilly Work Phone: [facility] 07-15-2023 12:46-0400 Body weight 170.[address] Tino Oreilly Work Phone: [facility] 07-15-2023 10:06-0400 Body temperature 97.8 [degF] Dr. Tino Oreilly Work Phone: [facility] 07-15-2023 10:06-0400 Diastolic blood pressure 60 mm[Hg] Dr. Tino Oreilly Work Phone: [facility] 07-15-2023 10:06-0400 Heart rate 70 /min Dr. Tino Oreilly Work Phone: [facility] 07-15-2023 10:06-0400 Inhaled oxygen flow rate 4 L/min Dr. Tino Oreilly Work Phone: 8(053)159-34[address] [place] [address] 07-15-2023 10:06-0400 Respiratory rate 20 /min Dr. Tino Oreilly Work Phone: 5(736)026-372588 [place] [address] 07-15-2023 10:06-0400 SaO2% (BldA) [Mass fraction] 96 % Dr. Tino Oreilly Work Phone: 8(621)275-277188 [place] [address] 07-15-2023 10:06-0400 Systolic blood pressure 133 mm[Hg] Dr. Tino Oreilly Work Phone: 4(802)469-844088 [place] [address] 07-15-2023 03:57-0400 Body mass index (BMI) [Ratio] 62.4 kg/m2 Dr. Tino Oreilly Work Phone: 2(576)633-110988 [place] [address] 07-15-2023 03:57-0400 Body weight 170.[address] Tino Oreilly Work Phone: 1(098)541-874088 [place] [address] 07-14-2023 16:40-0400 Body height 165.[address] Tino Oreilly Work Phone: 5(953)447-298588 [place] [address] 07-14-2023 16:19-0400 Body temperature 98.2 [degF] Dr. Tino Oreilly Work Phone: 6(017)319-124288 [place] [address] 07-14-2023 16:19-0400 Diastolic blood pressure 51 mm[Hg] Dr. Tino Oreilly Work Phone: 1(060)848-434588 [place] [address] 07-14-2023 16:19-0400 Heart rate 68 /min Dr. Tino Oreilly Work Phone: 7(178)465-190588 [place] [address] 07-14-2023 16:19-0400 Inhaled oxygen flow rate 5 L/min Dr. Tino Oreilly Work Phone: 6(603)909-059588 [place] [address] 07-14-2023 16:19-0400 Respiratory rate 16 /min Dr. Tino Oreilly Work Phone: 0(083)995-576888 [place] [address] 07-14-2023 16:19-0400 SaO2% (BldA) [Mass fraction] 96 % Dr. Tino Oreilly Work Phone: [facility] 07-14-2023 16:19-0400 Systolic blood pressure 135 mm[Hg] Dr. Tino Oreilly Work Phone: [facility] 07-14-2023 11:19-0400 Body mass index (BMI) [Ratio] 63.8 kg/m2 Dr. Tino Oreilly Work Phone: [facility] 07-14-2023 11:19-0400 Body weight 173.[address] Tino Oreilly Work Phone: [facility] 07-14-2023 11:09-0400 Body height 165.[address] Tino Oreilly Work Phone: [facility] 05-02-2023 12:30-0400 Body temperature 98.2 [degF] Kallie Cali RN Work Phone: [facility] 05-02-2023 12:30-0400 Diastolic blood pressure 70 mm[Hg] Kallie Cali RN Work Phone: [facility] 05-02-2023 12:30-0400 Heart rate 81 /min Kallie Cali RN Work Phone: [facility] 05-02-2023 12:30-0400 Respiratory rate 16 /min Kallie Cali RN Work Phone: [facility] 05-02-2023 12:30-0400 SaO2% (BldA) [Mass fraction] 95 % Kallie Cali RN Work Phone: [facility] 05-02-2023 12:30-0400 Systolic blood pressure 128 mm[Hg] Kallie Cali RN Work Phone: [facility] 04-28-2023 12:30-0400 Body temperature 97.7 [degF] Thierno Tripathi PT Work Phone: [facility] 04-28-2023 12:30-0400 Diastolic blood pressure 70 mm[Hg] Thierno Knupp PT Work Phone: [facility] 04-28-2023 12:30-0400 Heart rate 81 /min Thierno Knupp PT Work Phone: [facility] 04-28-2023 12:30-0400 Respiratory rate 18 /min Thierno Knupp PT Work Phone: [facility] 04-28-2023 12:30-0400 SaO2% (BldA) [Mass fraction] 97 % Thierno Knupp PT Work Phone: [facility] 04-28-2023 12:30-0400 Systolic blood pressure 118 mm[Hg] Thierno Knupp PT Work Phone: [facility] 04-26-2023 11:20-0400 Body temperature 98.1 [degF] Jacquelin Mtz RN Work Phone: [facility] 04-26-2023 11:20-0400 Diastolic blood pressure 82 mm[Hg] Jacquelin Mtz RN Work Phone: [facility] 04-26-2023 11:20-0400 Heart rate 88 /min Jacquelin Mtz RN Work Phone: [facility] 04-26-2023 11:20-0400 Respiratory rate 20 /min Jacquelin Mtz RN Work Phone: [facility] 04-26-2023 11:20-0400 SaO2% (BldA) [Mass fraction] 96 % Jacquelin Mtz RN Work Phone: [facility] 04-26-2023 11:20-0400 Systolic blood pressure 128 mm[Hg] Jacquelin Mtz RN Work Phone: [facility] 04-25-2023 13:00-0400 Body temperature 97.7 [degF] Dr. Tino Oreilly Work Phone: [facility] 04-25-2023 13:00-0400 Diastolic blood pressure 75 mm[Hg] Dr. Tino Oreilly Work Phone: [facility] 04-25-2023 13:00-0400 Heart rate 70 /min Dr. Tino Oreilly Work Phone: [facility] 04-25-2023 13:00-0400 Inhaled oxygen flow rate 5 L/min Dr. Tino Oreilly Work Phone: [facility] 04-25-2023 13:00-0400 Respiratory rate 20 /min Dr. Tino Oreilly Work Phone: [facility] 04-25-2023 13:00-0400 SaO2% (BldA) [Mass fraction] 97 % Dr. Tino Oreilly Work Phone: [facility] 04-25-2023 13:00-0400 Systolic blood pressure 145 mm[Hg] Dr. Tino Oreilly Work Phone: [facility] 04-25-2023 05:29-0400 Body mass index (BMI) [Ratio] 64.9 kg/m2 Dr. Tino Oreilly Work Phone: [facility] 04-25-2023 05:29-0400 Body weight 178.[address] Tino Oreilly Work Phone: [facility] 04-25-2023 04:22-0400 Inhaled oxygen concentration 45 % Dr. Tino Oreilly Work Phone: [facility] 04-09-2023 13:37-0400 Body temperature 97.9 [degF] Bonnie Yuen RN Work Phone: [facility] 04-09-2023 13:37-0400 Diastolic blood pressure 84 mm[Hg] Bonnie Yuen RN Work Phone: [facility] 04-09-2023 13:37-0400 Heart rate 80 /min Bonnie Yuen RN Work Phone: [facility] 04-09-2023 13:37-0400 Respiratory rate 16 /min Bonnie Yuen RN Work Phone: [facility] 04-09-2023 13:37-0400 SaO2% (BldA) [Mass fraction] 95 % Bonnie Most RN Work Phone: [facility] 04-09-2023 13:37-0400 Systolic blood pressure 128 mm[Hg] Bonnie Most RN Work Phone: [facility] 04-02-2023 11:29-0400 Body temperature 98.01 [degF] Bonnie Most RN Work Phone: [facility] 04-02-2023 11:29-0400 Diastolic blood pressure 74 mm[Hg] Bonnie Most RN Work Phone: [facility] 04-02-2023 11:29-0400 Heart rate 76 /min Bonnie Most RN Work Phone: [facility] 04-02-2023 11:29-0400 Respiratory rate 16 /min Bonnie Most RN Work Phone: [facility] 04-02-2023 11:29-0400 SaO2% (BldA) [Mass fraction] 98 % Bonnie Most RN Work Phone: [facility] 04-02-2023 11:29-0400 Systolic blood pressure 126 mm[Hg] Bonnie Most RN Work Phone: [facility] 03-21-2023 13:36-0400 Body temperature 98.01 [degF] Bonnie Most RN Work Phone: [facility] 03-21-2023 13:36-0400 Diastolic blood pressure 80 mm[Hg] Bonnie Most RN Work Phone: [facility] 03-21-2023 13:36-0400 Heart rate 76 /min Bonnie Most RN Work Phone: [facility] 03-21-2023 13:36-0400 Respiratory rate 16 /min Bonnie Most RN Work Phone: [facility] 03-21-2023 13:36-0400 SaO2% (BldA) [Mass fraction] 99 % Bonnie Most RN Work Phone: [facility] 03-21-2023 13:36-0400 Systolic blood pressure 124 mm[Hg] Bonnie Most RN Work Phone: [facility] 03-14-2023 14:50-0400 Body temperature 97.39 [degF] Bonnie Most RN Work Phone: [facility] 03-14-2023 14:50-0400 Diastolic blood pressure 64 mm[Hg] Bonnie Most RN Work Phone: [facility] 03-14-2023 14:50-0400 Heart rate 88 /min Bonnie Most RN Work Phone: [facility] 03-14-2023 14:50-0400 Respiratory rate 16 /min Bonnie Most RN Work Phone: [facility] 03-14-2023 14:50-0400 SaO2% (BldA) [Mass fraction] 96 % Bonnie RN Work Phone: [facility] 03-14-2023 14:50-0400 Systolic blood pressure 138 mm[Hg] Bonnie RN Work Phone: [facility] 03-12-2023 12:42-0400 Diastolic blood pressure 76 mm[Hg] Devin Rufener PT Work Phone: [facility] 03-12-2023 12:42-0400 Heart rate 92 /min Devin Rufener PT Work Phone: [facility] 03-12-2023 12:42-0400 Respiratory rate 19 /min Devin Rufener PT Work Phone: [facility] 03-12-2023 12:42-0400 SaO2% (BldA) [Mass fraction] 97 % Devin Rufener PT Work Phone: [facility] 03-12-2023 12:42-0400 Systolic blood pressure 122 mm[Hg] Devin Rufener PT Work Phone: [facility] 03-12-2023 12:22-0400 Body temperature 97.59 [degF] Devin Barragan PT Work Phone: [facility] 03-11-2023 11:41-0400 Body temperature 97.2 [degF] 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[employer] Work Phone: [facility] 03-11-2023 11:41-0400 Body weight 161.57 kg 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[employer] Work Phone: [facility] 03-11-2023 11:41-0400 Diastolic blood pressure 70 mm[Hg] 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[employer] Work Phone: [facility] 03-11-2023 11:41-0400 Heart rate 91 /min 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[employer] Work Phone: [facility] 03-11-2023 11:41-0400 Respiratory rate 18 /min 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[employer] Work Phone: [facility] 03-11-2023 11:41-0400 SaO2% (BldA) [Mass fraction] 97 % 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[employer]ER Work Phone: [facility] 03-11-2023 11:41-0400 Systolic blood pressure 132 mm[Hg] 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[employer] Work Phone: [facility] 03-10-2023 11:32-0400 Body temperature 99.19 [degF] Chey Acharya RN Work Phone: [facility] 03-10-2023 11:32-0400 Diastolic blood pressure 72 mm[Hg] Chey Peralta N Work Phone: [facility] 03-10-2023 11:32-0400 Heart rate 88 /min Chey Acharya RN Work Phone: [facility] 03-10-2023 11:32-0400 Respiratory rate 18 /min Chey Acharya RN Work Phone: [facility] [facility] 03-10-2023 11:32-0400 SaO2% (BldA) [Mass fraction] 97 % Chey Acharya RN Work Phone: [facility] 03-10-2023 11:32-0400 Systolic blood pressure 126 mm[Hg] Chey Acharya RN Work Phone: [facility] 03-07-2023 11:53-0400 Body temperature 97.7 [degF] Chey Acharya RN Work Phone: [facility] 03-07-2023 11:53-0400 Diastolic blood pressure 84 mm[Hg] Chey Peralta N Work Phone: [facility] 03-07-2023 11:53-0400 Heart rate 104 /min Chey Acharya RN Work Phone: [facility] 03-07-2023 11:53-0400 Respiratory rate 20 /min Chey Acharya RN Work Phone: [facility] 03-07-2023 11:53-0400 SaO2% (BldA) [Mass fraction] 98 % Chey Acharya RN Work Phone: [facility] 03-07-2023 11:53-0400 Systolic blood pressure 142 mm[Hg] Chey Acharya RN Work Phone: [facility] 03-05-2023 15:04-0400 Body temperature 97.8 [degF] Dr. Tino Oreilly Work Phone: [facility] 03-05-2023 15:04-0400 Diastolic blood pressure 75 mm[Hg] Dr. Tino Oreilly Work Phone: [facility] 03-05-2023 15:04-0400 Heart rate 72 /min Dr. Tino Oreilly Work Phone: [facility] 03-05-2023 15:04-0400 Inhaled oxygen flow rate 5 L/min Dr. Tino Oreilly Work Phone: [facility] 03-05-2023 15:04-0400 Respiratory rate 15 /min Dr. Tino Oreilly Work Phone: [facility] 03-05-2023 15:04-0400 SaO2% (BldA) [Mass fraction] 97 % Dr. Tino Oreilly Work Phone: [facility] 03-05-2023 15:04-0400 Systolic blood pressure 159 mm[Hg] Dr. Tino Oreilly Work Phone: [facility] 03-05-2023 04:09-0400 Body mass index (BMI) [Ratio] 61.9 kg/m2 Dr. Tino Oreilly Work Phone: [facility] 03-05-2023 04:09-0400 Body weight 168.[address] Tino Oreilly Work Phone: [facility] 03-05-2023 00:55-0400 Inhaled oxygen concentration 40 % Dr. Tino Oreilly Work Phone: [facility] 03-03-2023 10:39-0400 Body height 165.[address] Tino Oreilly Work Phone: [facility] 02-27-2023 16:50-0400 Body temperature 98.01 [degF] Bonnie Yuen RN Work Phone: [facility] 02-27-2023 16:50-0400 Diastolic blood pressure 76 mm[Hg] Bonnie Yuen RN Work Phone: [facility] 02-27-2023 16:50-0400 Heart rate 92 /min Bonnie Yuen RN Work Phone: [facility] 02-27-2023 16:50-0400 Respiratory rate 20 /min Bonnie Yuen RN Work Phone: [facility] 02-27-2023 16:50-0400 SaO2% (BldA) [Mass fraction] 93 % Bonnie Yuen RN Work Phone: [facility] 02-27-2023 16:50-0400 Systolic blood pressure 124 mm[Hg] Bonnie Yuen RN Work Phone: [facility] 02-23-2023 14:00-0400 Body temperature 98.29 [degF] Zahra Jackson RN Work Phone: [facility] 02-23-2023 14:00-0400 Diastolic blood pressure 82 mm[Hg] Zahra Jackson R N Work Phone: [facility] 02-23-2023 14:00-0400 Heart rate 84 /min Zahra Jackson RN Work Phone: [facility] 02-23-2023 14:00-0400 Respiratory rate 20 /min Zahra Jackson RN Work Phone: [facility] 02-23-2023 14:00-0400 SaO2% (BldA) [Mass fraction] 96 % Zahra Jackson RN Work Phone: [facility] 02-23-2023 14:00-0400 Systolic blood pressure 138 mm[Hg] Zahra Jackson RN Work Phone: [facility] 02-18-2023 21:00-0400 Diastolic blood pressure 76 mm[Hg] Dr. Tino Oreilly Work Phone: [facility] 02-18-2023 21:00-0400 Systolic blood pressure 119 mm[Hg] Dr. Tino Oreilly Work Phone: [facility] 02-18-2023 20:00-0400 Body temperature 98.1 [degF] Dr. Tino Oreilly Work Phone: [facility] 02-18-2023 20:00-0400 Heart rate 103 /min Dr. Tino Oreilly Work Phone: [facility] 02-18-2023 20:00-0400 Inhaled oxygen flow rate 5 L/min Dr. Tino Oreilly Work Phone: [facility] 02-18-2023 20:00-0400 Respiratory rate 14 /min Dr. Tino Oreilly Work Phone: [facility] 02-18-2023 20:00-0400 SaO2% (BldA) [Mass fraction] 92 % Dr. Tino Oreilly Work Phone: [facility] 02-18-2023 17:23-0400 Body mass index (BMI) [Ratio] 63.6 kg/m2 Dr. Tino Oreilly Work Phone: [facility] 02-18-2023 17:23-0400 Body weight 173.[address] Tino Oreilly Work Phone: [facility] 02-18-2023 16:42-0400 Body height 165.[address] Tino Oreilly Work Phone: [facility] 02-18-2023 11:13-0400 Diastolic blood pressure 72 mm[Hg] Panfilo Oreilly MD Work Phone: [facility] 02-18-2023 11:13-0400 Heart rate 99 /min Panfilo Oreilly MD Work Phone: [facility] 02-18-2023 11:13-0400 Respiratory rate 18 /min Panfilo Oreilly MD Work Phone: [facility] 02-18-2023 11:13-0400 SaO2% (BldA) [Mass fraction] 91 % Panfilo Oreilly MD Work Phone: [facility] 02-18-2023 11:13-0400 Systolic blood pressure 128 mm[Hg] Panfilo Oreilly MD Work Phone: [facility] 01-12-2023 23:09-0500 Body height 165.[address] Tino Oreilly Work Phone: [facility] 01-12-2023 23:09-0500 Body mass index (BMI) [Ratio] 64.3 kg/m2 Dr. Tino Oreilly Work Phone: [facility] 01-12-2023 23:09-0500 Body temperature 98.2 [degF] Dr. Tino Oreilly Work Phone: [facility] 01-12-2023 23:09-0500 Body weight 175.[address] Tino Oreilly Work Phone: [facility] 01-12-2023 23:09-0500 Diastolic blood pressure 63 mm[Hg] Dr. Tino Oreilly Work Phone: [facility] 01-12-2023 23:09-0500 Heart rate 85 /min Dr. Tino Oreilly Work Phone: [facility] 01-12-2023 23:09-0500 Inhaled oxygen flow rate 3 L/min Dr. Tino Oreilly Work Phone: 8(914)290-616165 [place] [address] 01-12-2023 23:09-0500 Respiratory rate 16 /min Dr. Tino Oreilly Work Phone: [facility] 01-12-2023 23:09-0500 SaO2% (BldA) [Mass fraction] 96 % Dr. Tino Oreilly Work Phone: [facility] 01-12-2023 23:09-0500 Systolic blood pressure 157 mm[Hg] Dr. Tino Oreilly Work Phone: [facility] 12-30-2022 13:37-0500 SaO2% (BldA) [Mass fraction] 93 % [facility] Comment on above: Order Comment: Specimen Type: ARTERIAL B LOOD SPECIMENOrdering Facility: [facility] Address: [address] [place] [address] Performed By: #### A LLBG ####[facility] LABORATORYCLIA [id number] [address] OF [facility] 12-27-2022 07:00-0500 SaO2% (BldA) [Mass fraction] 97 % PANFILO [facility] Comment on above: Order Comment: Specimen Type: ARTERIAL B LOOD SPECIMENOrdering Facility: [facility] Address: [address] [place] [address] Performed By: #### A LLBG ####[facility] LABORATORYCLIA [id number] [address] [place] 12-25-2022 13:42-0500 SaO2% (BldA) [Mass fraction] 97 % PANFILO [facility] Comment on above: Order Comment: Specimen Type: ARTERIAL B LOOD SPECIMENOrdering Facility: [facility] Address: [address] [place] [address] Performed By: #### A LLBG ####[facility] LABORATORYCLIA [id number] [address] 12-25-2022 10:54-0500 SaO2% (BldA) [Mass fraction] 99 % PANFILO [facility] Comment on above: Order Comment: Specimen Type: ARTERIAL B LOOD SPECIMENOrdering Facility: [facility] Address: [address] [place] [address] Performed By: #### A LLBG ####[facility]ORYCLIA [id number] [address] 12-25-2022 08:26-0500 SaO2% (BldA) [Mass fraction] 96 % PANFILO [facility] Comment on above: Order Comment: Specimen Type: ARTERIAL B LOOD SPECIMENOrdering Facility: [facility] Address: [address] [place] [address] Performed By: #### A LLBG ####[facility] LABORATORYCLIA [id number] [place] [address] [facility] 12-24-2022 23:35-0500 Diastolic blood pressure 47 mm[Hg] Dr. Tino Oreilly Work Phone: [facility] 12-24-2022 23:35-0500 Heart rate 109 /min Dr. Tino Oreilly Work Phone: [facility] 12-24-2022 23:35-0500 Inhaled oxygen flow rate 5 L/min Dr. Tino Oreilly Work Phone: [facility] 12-24-2022 23:35-0500 Respiratory rate 16 /min Dr. Tino Oreilly Work Phone: 0(927)064-280665 [place] [address] 12-24-2022 23:35-0500 SaO2% (BldA) [Mass fraction] 94 % Dr. Tino Oreilly Work Phone: 9(726)917-996788 [place] [address] 12-24-2022 23:35-0500 Systolic blood pressure 109 mm[Hg] Dr. Tino Oreilly Work Phone: 1(888)189-044488 [place] [address] 12-24-2022 21:08-0500 Body height 170.[address] Tino Oreilly Work Phone: 1(257)047-203188 [place] [address] 12-24-2022 21:08-0500 Body mass index (BMI) [Ratio] 58.7 kg/m2 Dr. Tino Oreilly Work Phone: 5(635)006-086588 [place] [address] 12-24-2022 21:08-0500 Body temperature 97 [degF] Dr. Tino Oreilly Work Phone: 4(095)588-459488 [place] [address] 12-24-2022 21:08-0500 Body weight 170.[address] Tino Oreilly Work Phone: 5(121)011-388888 [place] [address] 12-20-2022 16:28-0500 Body temperature 98.5 [degF] Dr. Tino Oreilly Work Phone: 0(221)637-636288 [place] [address] 12-20-2022 16:28-0500 Diastolic blood pressure 96 mm[Hg] Dr. Tino Oreilly Work Phone: 0(564)758-533588 [place] [address] 12-20-2022 16:28-0500 Heart rate 103 /min Dr. Tino Oreilly Work Phone: 2(073)021-991388 [place] [address] 12-20-2022 16:28-0500 Inhaled oxygen flow rate 2 L/min Dr. Tino Oreilly Work Phone: 7(077)779-533188 [place] [address] 12-20-2022 16:28-0500 Respiratory rate 19 /min Dr. Tino Oreilly Work Phone: 0(078)996-145688 [place] [address] 12-20-2022 16:28-0500 SaO2% (BldA) [Mass fraction] 94 % Dr. Tino Oreilly Work Phone: 9(077)796-367988 [place] [address] 12-20-2022 16:28-0500 Systolic blood pressure 149 mm[Hg] Dr. Tino Oreilly Work Phone: 6(236)378-959088 [place] [address] 12-19-2022 23:55-0500 Inhaled oxygen concentration 35 % Dr. Tino Oreilly Work Phone: 6(255)626-894488 [place] [address] 12-19-2022 13:59-0500 Body height 170.[address] Tino Oreilly Work Phone: 6(208)184-878588 [place] [address] 12-19-2022 13:59-0500 Body weight 174.[address] Tino Oreilly Work Phone: 1(060)294-365588 [place] [address] 12-19-2022 00:31-0500 Body mass index (BMI) [Ratio] 60.1 kg/m2 Dr. Tino Oreilly Work Phone: 5(433)062-464088 [place] [address] 12-18-2022 23:35-0500 Body temperature 97.9 [degF] Dr. Tino Oreilly Work Phone: 2(089)071-617788 [place] [address] 12-18-2022 23:35-0500 Diastolic blood pressure 104 mm[Hg] Dr. Tino Oreilly Work Phone: 7(584)926-517888 [place] [address] 12-18-2022 23:35-0500 Heart rate 101 /min Dr. Tino Oreilly Work Phone: 2(386)147-260288 [place] [address] 12-18-2022 23:35-0500 Inhaled oxygen flow rate 3 L/min Dr. Tino Oreilly Work Phone: 3(779)780-807188 [place] [address] 12-18-2022 23:35-0500 Respiratory rate 16 /min Dr. Tino Oreilly Work Phone: 0(919)923-893788 [place] [address] 12-18-2022 23:35-0500 SaO2% (BldA) [Mass fraction] 92 % Dr. Tino Oreilly Work Phone: 8(828)663-876888 [place] [address] 12-18-2022 23:35-0500 Systolic blood pressure 153 mm[Hg] Dr. Tino Oreilly Work Phone: 8(500)671-858188 [place] [address] 12-18-2022 21:35-0500 Body height 170.[address] Tino Oreilly Work Phone: 5(722)424-970088 [place] [address] 12-18-2022 21:35-0500 Body mass index (BMI) [Ratio] 61.9 kg/m2 Dr. Tino Oreilly Work Phone: 0(268)546-359888 [place] [address] 12-18-2022 21:35-0500 Body weight 179.[address] Tino Oreilly Work Phone: 9(289)169-336388 [place] [address] 12-09-2022 14:17-0500 Diastolic blood pressure 87 mm[Hg] Dr. Tino Oreilly Work Phone: 5(320)453-671688 [place] [address] 12-09-2022 14:17-0500 Heart rate 98 /min Dr. Tino Oreilly Work Phone: 9(779)949-662888 [place] [address] 12-09-2022 14:17-0500 Systolic blood pressure 111 mm[Hg] Dr. Tino Oreilly Work Phone: 8(656)554-627588 [place] [address] 12-09-2022 12:55-0500 Inhaled oxygen flow rate 4 L/min Dr. Tino Oreilly Work Phone: 2(970)883-397488 [place] [address] 12-09-2022 12:55-0500 Respiratory rate 23 /min Dr. Tino Oreilly Work Phone: 6(374)920-154788 [place] [address] 12-09-2022 12:55-0500 SaO2% (BldA) [Mass fraction] 94 % Dr. Tino Oreilly Work Phone: 4(004)009-906388 [place] [address] 12-09-2022 11:58-0500 Body height 170.[address] Tino Oreilly Work Phone: 2(830)495-213188 [place] [address] Work Phone: 12-09-2022 11:58-0500 Body mass index (BMI) [Ratio] 59.8 kg/m2 Dr. Tino Oreilly Work Phone: [facility] 12-09-2022 11:58-0500 Body temperature 97.8 [degF] Dr. Tino Oreilly Work Phone: 1(704)722-612088 [place] [address] 12-09-2022 11:58-0500 Body weight 173.[address] Tino Oreilly Work Phone: 6(391)852-729588 [place] [address] 11-01-2022 16:50-0500 Body temperature 98.7 [degF] Dr. Tino Oreilly Work Phone: 0(183)510-262788 [place] [address] 11-01-2022 16:50-0500 Diastolic blood pressure 54 mm[Hg] Dr. Tino Oreilly Work Phone: 1(839)375-891788 [place] [address] 11-01-2022 16:50-0500 Heart rate 94 /min Dr. Tino Oreilly Work Phone: 6(050)350-822088 [place] [address] 11-01-2022 16:50-0500 Inhaled oxygen flow rate 15 L/min Dr. Tino Oreilly Work Phone: 1(466)460-198888 [place] [address] 11-01-2022 16:50-0500 Respiratory rate 18 /min Dr. Tino Oreilly Work Phone: 5(704)402-459288 [place] [address] 11-01-2022 16:50-0500 SaO2% (BldA) [Mass fraction] 97 % Dr. Tino Oreilly Work Phone: 4(386)967-546915 [address] 11-01-2022 16:50-0500 Systolic blood pressure 121 mm[Hg] Dr. Tino Oreilly Work Phone: 3(457)231-319765 [place] [address] 11-01-2022 14:36-0500 Body height 165.[address] Tino Oreilly Work Phone: 0(776)284-556065 [place] [address] Work Phone: 11-01-2022 14:36-0500 Body mass index (BMI) [Ratio] 62.9 kg/m2 Dr. Tino Oreilly Work Phone: [facility] 11-01-2022 14:36-0500 Body weight 171.[address] Tino Oreilly Work Phone: [facility] 10-18-2022 10:41-0500 Body temperature 96.8 [degF] Panfilo Oreilly MD Work Phone: [facility] 10-18-2022 10:41-0500 Body weight 178.9 kg Panfilo Oreilly MD Work Phone: [facility] 10-18-2022 10:41-0500 Diastolic blood pressure 70 mm[Hg] Panfilo Oreilly MD Work Phone: [facility] 10-18-2022 10:41-0500 Heart rate 100 /min Panfilo Oreilly MD Work Phone: [facility] 10-18-2022 10:41-0500 Respiratory rate 20 /min Panfilo Oreilly MD Work Phone: [facility] 10-18-2022 10:41-0500 SaO2% (BldA) [Mass fraction] 97 % Panfilo Oreilly MD Work Phone: [facility] 10-18-2022 10:41-0500 Systolic blood pressure 124 mm[Hg] Panfilo Oreilly MD Work Phone: [facility] 09-24-2022 12:44-0400 Body temperature 97.7 [degF] Dr. Tino Oreilly Work Phone: [facility] 09-24-2022 12:44-0400 Diastolic blood pressure 80 mm[Hg] Dr. Tino Oreilly Work Phone: [facility] 09-24-2022 12:44-0400 Heart rate 86 /min Dr. Tino Oreilly Work Phone: [facility] 09-24-2022 12:44-0400 Inhaled oxygen flow rate 3 L/min Dr. Tino Oreilly Work Phone: [facility] 09-24-2022 12:44-0400 Respiratory rate 18 /min Dr. Tino Oreilly Work Phone: [facility] 09-24-2022 12:44-0400 SaO2% (BldA) [Mass fraction] 96 % Dr. Tino Oreilly Work Phone: [facility] 09-24-2022 12:44-0400 Systolic blood pressure 142 mm[Hg] Dr. Tino Oreilly Work Phone: [facility] 09-24-2022 10:58-0400 Inhaled oxygen concentration 30 % Dr. Tino Oreilly Work Phone: [facility] 09-24-2022 06:00-0400 Body weight 172.[address] Tino Oreilly Work Phone: [facility] 09-23-2022 13:40-0400 Body height 165.[address] Tino Oreilly Work Phone: [facility] Work Phone: 09-22-2022 19:33-0400 Body mass index (BMI) [Ratio] 64.3 kg/m2 Dr. Tino Oreilly Work Phone: [facility] 09-22-2022 18:30-0400 Body temperature 97.7 [degF] [facility] Work Phone: 09-22-2022 18:30-0400 Diastolic blood pressure 71 mm[Hg] [facility] Work Phone: 09-22-2022 18:30-0400 Heart rate 103 /min [facility] Work Phone: 09-22-2022 18:30-0400 Inhaled oxygen concentration 31 % [facility] Work Phone: 09-22-2022 18:30-0400 Inhaled oxygen flow rate 6 L/min [facility] Work Phone: 09-22-2022 18:30-0400 Respiratory rate 18 /min [facility] Work Phone: 09-22-2022 18:30-0400 SaO2% (BldA) [Mass fraction] 92 % [facility] Work Phone: 09-22-2022 18:30-0400 Systolic blood pressure 120 mm[Hg] [facility] Work Phone: 09-22-2022 16:28-0400 Body height 165.1 cm [facility] Work Phone: 09-22-2022 16:28-0400 Body mass index (BMI) [Ratio] 65.9 kg/m2 [facility] Work Phone: 09-22-2022 16:28-0400 Body weight 179.8 kg [facility] Work Phone: 07-23-2022 10:27-0400 Body height 166.4 cm Berenice Bauman MD Work Phone: [facility] 07-23-2022 10:27-0400 Body temperature 98.2 [degF] Berenice Bauman MD Work Phone: [facility] 07-23-2022 10:27-0400 Body weight 176.45 kg Berenice Bauman MD Work Phone: [facility] 07-23-2022 10:27-0400 Diastolic blood pressure 71 mm[Hg] Berenice Bauman MD Work Phone: [facility] 07-23-2022 10:27-0400 Heart rate 103 /min Berenice Bauman MD Work Phone: [facility] 07-23-2022 10:27-0400 SaO2% (BldA) [Mass fraction] 92 % Berenice Bauman MD Work Phone: [facility] 07-23-2022 10:27-0400 Systolic blood pressure 136 mm[Hg] Berenice Bauman MD Work Phone: [facility] 03-31-2022 22:56-0400 Diastolic blood pressure 85 mm[Hg] Dr. Tino Oreilly Work Phone: [facility] Work Phone: 03-31-2022 22:56-0400 Heart rate 90 /min Dr. Tino Oreilly Work Phone: [facility] Work Phone: 03-31-2022 22:56-0400 Respiratory rate 18 /min Dr. Tino Oreilly Work Phone: [facility] Work Phone: 03-31-2022 22:56-0400 Systolic blood pressure 102 mm[Hg] Dr. Tino Oreilly Work Phone: [facility] Work Phone: 03-31-2022 21:48-0400 SaO2% (BldA) [Mass fraction] 94 % Dr. Tino Oreilly Work Phone: [facility] Work Phone: 03-31-2022 20:45-0400 Body height 165.[address] Tino Oreilly Work Phone: [facility] Work Phone: 03-31-2022 20:45-0400 Body mass index (BMI) [Ratio] 64.2 kg/m2 Dr. Tino Oreilly Work Phone: [facility] Work Phone: 03-31-2022 20:45-0400 Body temperature 97.3 [degF] Dr. Tino Oreilly Work Phone: [facility] Work Phone: 03-31-2022 20:45-0400 Body weight 175.[address] Tino Oreilly Work Phone: [facility] Work Phone: 03-19-2022 10:09-0400 Body weight 168.65 kg Hallie Martinez APRN.[employer] SAW[employer]ER Work Phone: [facility] 03-19-2022 10:09-0400 Diastolic blood pressure 82 mm[Hg] Hallie Martinez APRN.[employer] SAWYER Work Phone: [facility] 03-19-2022 10:09-0400 Heart rate 83 /min 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[employer] Work Phone: [facility] 03-19-2022 10:09-0400 Respiratory rate 20 /min 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[employer]WYER Work Phone: [facility] 03-19-2022 10:09-0400 SaO2% (BldA) [Mass fraction] 97 % 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[employer]WYER Work Phone: [facility] 03-19-2022 10:09-0400 Systolic blood pressure 140 mm[Hg] 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[employer]WYER Work Phone: [facility] 03-01-2022 12:43-0400 Body height 1950.[address] Tino Oreilly Work Phone: [facility] Work Phone: 03-01-2022 12:43-0400 Body weight 163.[address] Tino Oreilly Work Phone: [facility] Work Phone: 03-01-2022 12:43-0400 Heart rate 120 /min Dr. Tino Oreilly Work Phone: [facility] Work Phone: 03-01-2022 12:43-0400 SaO2% (BldA) [Mass fraction] 90 % Dr. Tino Oreilly Work Phone: [facility] Work Phone: 02-07-2022 08:57-0500 Body temperature 98.6 [degF] Dr. Tino Oreilly Work Phone: [facility] Work Phone: 02-07-2022 08:57-0500 Diastolic blood pressure 92 mm[Hg] Dr. Tino Oreilly Work Phone: [facility] Work Phone: 02-07-2022 08:57-0500 Heart rate 103 /min Dr. Tino Oreilly Work Phone: [facility] Work Phone: 02-07-2022 08:57-0500 Respiratory rate 19 /min Dr. Tino Oreilly Work Phone: [facility] Work Phone: 02-07-2022 08:57-0500 SaO2% (BldA) [Mass fraction] 91 % Dr. Tino Oreilly Work Phone: [facility] Work Phone: 02-07-2022 08:57-0500 Systolic blood pressure 113 mm[Hg] Dr. Tino Oreilly Work Phone: [facility] Work Phone: 01-18-2022 13:59-0500 Heart rate 69 /min Dr. Tino Oreilly Work Phone: [facility] Work Phone: 01-18-2022 13:59-0500 Respiratory rate 19 /min Dr. Tino Oreilly Work Phone: [facility] Work Phone: 01-18-2022 11:47-0500 Body weight 173.[address] Tino Oreilly Work Phone: [facility] Work Phone: 01-18-2022 08:02-0500 Diastolic blood pressure 79 mm[Hg] Dr. Tino Oreilly Work Phone: [facility] Work Phone: 01-18-2022 08:02-0500 Systolic blood pressure 152 mm[Hg] Dr. Tino Oreilly Work Phone: [facility] Work Phone: 01-18-2022 07:58-0500 Body temperature 97.9 [degF] Dr. Tino Oreilly Work Phone: [facility] Work Phone: 01-18-2022 07:58-0500 SaO2% (BldA) [Mass fraction] 96 % Dr. Tino Oreilly Work Phone: [facility] Work Phone: 01-18-2022 03:27-0500 Inhaled oxygen concentration 45 % Dr. Tino Oreilly Work Phone: [facility] Work Phone: 01-15-2022 18:20-0500 Body mass index (BMI) [Ratio] 64.7 kg/m2 Dr. Tino Oreilly Work Phone: [facility] Work Phone: Encounters Encounter Date Encounter Type Care Provider Facility Start: 10-19-2025 ambulatory [facility] Facility:[facility] Start: 10-14-2025 ambulatory [facility] Facility: [facility] Start: 09-28-2025 End: 09-30-2025 ambulatory [facility] Facility:[facility] Start: 09-19-2025 ambulatory [facility] Facility:[facility] Start: 08-19-2025 Non-patient / Non-visit Dr. Jersey bloom MD -[facility] Work Phone: Start: 08-18-2025 Non-patient / Non-visit Dr. Jersey bloom MD -[facility] Work Phone: Start: 08-17-2025 Non-patient / Non-visit Dr. Jersey bloom MD -[facility] Work Phone: Start: 08-16-2025 ambulatory Olamide Mas Facility :[facility] Start: 08-16-2025 End: 08-19-2025 Evaluation and management of inpatient Dr. Olamide Mas MD -[facility] Work Phone: Start: 08-[facility] Start: 07-15-2025 End: 07-15-2025 ambulatory [facility] Start: 06-16-2025 End: 06-16-2025 ambulatory [facility] Start: 06-09-2025 End: 06-09-2025 ambulatory [facility] Facility:[facility] Start: 05-31-2025 End: 05-31-2025 ambulatory [facility] Start: 05-31-2025 Encounter for genera l adult medical examination without abnormal findings [facility] Start: 11-12-2024 ambulatory Chaljesse Barbi Facility:[facility] Start: 11-09-2024 ambulatory Olamide L White Facility :[facility] Start: 11-09-2024 End: 11-12-2024 Evaluation and management of inpatient Olamide L White Facility:[facility] Start: 03-27-2024 End: 03-28-2024 Emergency department patient visit [facility]-Emergency Department Work Phone: Start: 03-23-2024 End: 03-23-2024 ambulatory [facility] Work Phone: Start: 03-23-2024 End: 03-23-2024 Patient encounter procedure [facility] Start: 01-14-2024 End: 01-15-2024 Emergency department patient visit [facility]-Emergency Department Work Phone: Start: 01-02-2024 End: 01-02-2024 ambulatory [facility] Work Phone: Start: 01-02-2024 End: 01-02-2024 Patient encounter procedure [facility] Work Phone: Start: 10-14-2023 End: 10-14-[address] Tino Oreilly Work Phone: [facility] Work Phone: Start: 10-14-2023 End: 10-14-[address] Tino Oreilly Work Phone: [facility] Work Phone: Start: 09-25-2023 End: 09-25-[address] Tino Oreilly Work Phone: [facility] Work Phone: Start: 09-25-2023 End: 09-25-[address] Tino Oreilly Work Phone: [facility] Start: 09-18-2023 End: 09-18-[address] Tino Oreilly Work Phone: [facility] Work Phone: Start: 09-18-2023 End: 09-18-[address] Tino Oreilly Work Phone: [facility] Start: 08-05-2023 Telephone encounter Tino Oreilly MD Work Phone: [facility] Comment on above: Opened In Error Start: 08-01-2023 Refill Panfilo Oreilly MD Work Phone: [facility] Comment on above: Refill Request Start: 07-30-2023 Telephone encounter Tino Oreilly MD Work Phone: [facility] Comment on above: Appointment Start: 07-29-2023 Refill No Pcp DRAINAGE INSPECTOR [facility] Comment on above: Refill Request Start: 07-23-2023 Refill No Pcp DRAINAGE INSPECTOR [facility] Comment on above: Refill Request Start: 07-15-2023 Non-patient / Non-visit Dr. Moe Oreilly Work Phone: [facility] Work Phone: Start: 07-14-2023 Non-patient / Non-visit Dr. Moe Oreilly Work Phone: [facility] Work Phone: Start: 07-14-2023 End: 07-15-2023 Evaluation and management of inpatient Dr. Tino Oreilly Work Phone: [facility] Work Phone: Start: 07-14-2023 End: 07-15-[address] Tino Oreilly Work Phone: [facility] Work Phone: Start: 07-14-2023 Evaluation and management of inpatient Dr. Tino Oreilly Work Phone: [facility]-Progressive Care Unit Work Phone: Start: 07-14-[address] Dalila Oreilly Work Phone: [facility] Work Phone: Start: 07-08-2023 Telephone encounter Tino Oreilly MD Work Phone: Family [facility] Comment on above: Medication Request Insurance Authorizat ion (Test strips/lancets ) Refill Request Start: 06-25-2023 Refill No Pcp DRAINAGE INSPECTOR Family [facility] [place] Comment on above: Opened In Error Start: 06-17-2023 Refill Panfilo Oreilly MD Work Phone: [facility] Comment on above: Refill Request Start: 06-06-2023 Patient Outreach Oma[facility] Management Comment on above: Transition Of Care ( TCM Initial Outreach: [facility] [place] 05/31/23, KERRY) Start: 05-29-2023 Refill Panfilo Oreilly MD Work Phone: [facility] Comment on above: Opened In Error Start: 05-23-2023 Refill Panfilo Oreilly MD Work Phone: [facility] Comment on above: Refill Request Start: 05-14-2023 Telephone encounter Tino Oreilly MD Work Phone: [facility] Comment on above: DME Start: 05-02-2023 Telephone encounter Kallie mojica RN Work Phone: [facility] Comment on above: Home Care (Pt d/c to day) Opened In Error Start: 05-02-2023 End: 05-02-2023 Home visit Kallie Cali RN Work Phone: [facility] Comment on above: SN AGENCY DC W VISIT Start: 04-30-2023 End: 04-30-2023 Home visit Roc Osullivan FLUE BLOWER Work Phone: [facility] Comment on above: SN UNMADE VISIT Start: 04-30-2023 ambulatory Panfilo Oreilly MD Work Phone: Internal Medicine [facility] Start: 04-29-2023 End: 04-29-2023 Home visit Karyn Vernon RAKING MACHINE OPERATOR Work Phone: [facility] Comment on above: TELEPHONE CONTACT Start: 04-28-2023 End: 04-28-2023 Home visit Thierno Deuce PT Work Phone: [facility] Comment on above: PT EVAL Start: 04-28-2023 Non-patient / Non-visit Dr. Moe Oreilly Work Phone: [facility] Work Phone: Start: 04-26-2023 End: 04-26-2023 Home visit Jacquelin Mtz RN Work Phone: [facility] Comment on above: SN JIGNESH Start: 04-25-2023 Refill Panfilo Oreilly MD Work Phone: [facility] Comment on above: Refill Request Start: 04-25-2023 Non-patient / Non-visit Dr. Moe Oreilly Work Phone: [facility] Work Phone: Start: 04-24-2023 Non-patient / Non-visit Dr. Moe Oreilly Work Phone: [facility] Start: 04-24-2023 End: 04-24-2023 Home visit Jacquelin Mtz RN Work Phone: [facility] Comment on above: SN TRANSFER Start: 04-24-2023 Non-patient / Non-visit Dr. Moe Oreilly Work Phone: [facility] [facility] Work Phone: Start: 04-23-2023 End: 04-25-2023 Evaluation and management of inpatient Dr. Tino Oreilly Work Phone: [facility] Work Phone: Start: 04-09-2023 End: 04-09-2023 Home visit Bonnie Yuen RN Work Phone: [facility] Comment on above: SN ROUTINE Start: 04-02-2023 End: 04-02-2023 Home visit Bonnie Yuen RN Work Phone: [facility] Comment on above: SN ROUTINE Start: 03-28-2023 Refill Panfilo Oreilly MD Work Phone: [facility] Comment on above: Refill Request Start: 03-27-2023 Documentation procedure Randy Sellers MD Work Phone: [facility] Start: 03-27-2023 Letter encounter Conrado Sellers MD Work Phone: [facility] Start: 03-21-2023 End: 03-21-2023 Home visit Bonnie Yuen RN Work Phone: [facility] Comment on above: SN ROUTINE Start: 03-19-2023 End: 03-19-2023 Home visit Karyn KANGW Work Phone: [facility] Comment on above: IRON CARRIER CARE COORDINATIO N Start: 03-14-2023 End: 03-14-2023 Home visit Bonnie Yuen RN Work Phone: [facility] Comment on above: SN ROUTINE Start: 03-12-2023 Telephone encounter Hallie hua APRN.CNP Work Phone: [facility] Comment on above: Orders Request Start: 03-12-2023 End: 03-12-2023 Home visit Devin Barragan PT Work Phone: [facility] Comment on above: PT EVAL Start: 03-11-2023 End: 03-11-2023 Patient encounter procedure Hallie Carmonastacieericka DRAINAGE INSPECTOR.BLOCK SAWYER Work Phone: [facility] [place] Comment on above: Hospital discharge f ollow-up (Primary Dx); Morbid obesity (HCC); Open wound of inguinal region, sequela; Pneumonia due to infectious organism, unspecified laterality, unspecified part of lung; Oxygen dependent; Impaired ambulation; Stress incontinence; Anxiety and depression; Failure to attend appointment with reason given Start: 03-10-2023 End: 03-10-2023 Home visit Chey Acharya RN Work Phone: [facility] Comment on above: SN ROUTINE Start: 03-08-2023 Telephone encounter Moni ([facility] [place] [facility] Comment on above: Home Care Start: 03-07-2023 End: 03-07-2023 Home visit Karyn ALBARADO Work Phone: [facility] Comment on above: IRON CARRIER CARE COORDINATIO N SN SOC Start: 03-06-2023 Telephone encounter Malka Mas LP N [facility] Comment on above: Home Care (Home care change of insurance) Start: 03-05-2023 Telephone encounter Opal nicole Work Phone: [facility] Comment on above: Home Care (Confirmat ion Call ) Patient Update Start: 03-05-2023 Dr. Tino Oreilly Work Phone: [facility] Start: 03-05-2023 End: 03-05-2023 Home visit Irina Martínez RN Work Phone: [facility] Comment on above: SN NO ADMIT Start: 03-05-2023 Dr. Tino Oreilly Work Phone: [facility] Start: 03-04-2023 End: 03-04-2023 Home visit Karyn ALBARADO Work Phone: [facility] Comment on above: [facility] CARE COORDINATIO N Start: 03-04-2023 Dr. Tino Oreilly Work Phone: [facility] Start: 03-04-2023 Dr. Tino Oreilly Work Phone: [facility] Start: 03-03-2023 End: 03-03-2023 Home visit Bonnie Yuen RN Work Phone: [facility] Comment on above: SN AGENCY DC WO VISI T Start: 03-03-2023 Dr. Tino Oreilly Work Phone: [facility] Start: 03-03-2023 Dr. Tino Oreilly Work Phone: [facility] Start: 03-02-2023 Dr. Tino Oreilly Work Phone: [facility] Start: 03-02-2023 End: 03-05-2023 Evaluation and management of inpatient Dr. Tino Oreilly Work Phone: [facility] Work Phone: Start: 03-02-2023 End: 03-05-2023 Dr. Tino Oreilly Work Phone: [facility]-Intensive Care Unit Start: 02-27-2023 End: 02-27-2023 Home visit Bonnie Yuen RN Work Phone: [facility] Comment on above: SN ROUTINE Start: 02-26-2023 End: 02-26-2023 Home visit Karyn KANGW Work Phone: [facility] Comment on above: IRON CARRIER CARE COORDINATIO N Start: 02-26-2023 Telephone encounter Bharat Price RN Work Phone: [facility] Comment on above: Home Care (Request f or home health aide referral.) Start: 02-25-2023 End: 02-25-2023 Home visit Karyn Vernon RAKING MACHINE OPERATOR Work Phone: [facility] Comment on above: IRON CARRIER CARE COORDINATIO N Start: 02-24-2023 Telephone encounter Tino Oreilly MD Work Phone: [facility] Comment on above: Patient Update Results Start: 02-23-2023 End: 02-23-2023 Home visit Zahra Jackson RN Work Phone: [facility] Comment on above: SN SOC Start: 02-21-2023 ambulatory Annie Borges [facility] Work Phone: [facility] Start: 02-21-2023 Telephone encounter Tino Oreilly MD Work Phone: [facility] [place] Comment on above: Fax last Office Vist Notes Transition Of Care ( TCM Pharmacy-Hospital discharge 02/20/23) Transition Of Care ( TCM Initial [facility] Discharge 02/20/23/) Start: 02-20-2023 Telephone encounter Geeta Munguia LP N [facility] Comment on above: Home Care (MD to roxy norton) Start: 02-19-2023 Telephone encounter Tino Oreilly MD Work Phone: [facility] Comment on above: Results Orders Start: 02-19-2023 End: 02-20-2023 Evaluation and management of inpatient PANFILO OREILLY Facility:[facility] Start: 02-18-2023 End: 02-18-2023 Emergency department patient visit Dr. Tino Oreilly Work Phone: [facility]-Emergency Department Start: 02-18-2023 End: 02-18-2023 Dr. Tino Oreilly Work Phone: [facility]-Emergency Department Start: 02-18-2023 End: 02-19-2023 Patient encounter procedure Panfilo Oreilly MD Work Phone: [facility] Comment on above: Abscess of groin, le ft (Primary Dx); Non-healing open wound of left groin, initial encounter; Necrotizing soft tissue infection; Cellulitis of skin; Type 2 diabetes mellitus with diabetic polyneuropathy, with long-term current use of insulin ([facility]) Start: 02-07-2023 Telephone encounter Tino Oreilly MD Work Phone: [facility] [place] Comment on above: Stage II pressure so re Start: 02-04-2023 Telephone encounter Tino Oreilly MD Work Phone: [facility] Comment on above: [facility] PT Order Request Start: 02-03-2023 Refill Panfilo Oreilly MD Work Phone: [facility] [place] Comment on above: Refill Request Appointment Start: 01-30-2023 Telephone encounter Tino Oreilly MD Work Phone: [facility] Comment on above: Appointment Start: 01-28-2023 ambulatory Raquel Payne RN [facility] Start: 01-28-2023 Follow-up encounter Raquel ortega RN Environmental Field Technician Management Comment on above: Transition Of Care ( TCM follow up/) Start: 01-21-2023 Telephone encounter Tino Oreilly MD Work Phone: [facility] [place] Comment on above: Alf Start: 01-20-2023 Telephone encounter Brandi Fernando MD Work Phone: [facility] Comment on above: Refill Request Start: 01-17-2023 Patient Outreach Brissakade white [facility] Work Phone: Pharmacy Comment on above: Transition Of Care ( TCM Pharmacy-Hospital discharge 01/16/23) Start: 01-15-2023 Telephone encounter Tino Oreilly MD Work Phone: [facility] Comment on above: Patient Update Start: 01-14-2023 ambulatory Mmii Crowley RN [facility] Start: 01-14-2023 Follow-up encounter Mimi Crowley RN Environmental Field Technician Management Comment on above: Transition Of Care ( TCM follow-up readmitted to hospital) Start: 01-14-2023 Telephone encounter [facility] Comment on above: Appointment Start: 01-13-2023 End: 01-16-2023 Evaluation and management of inpatient ZACKERY LEBLANC Facility:[facility] Start: 01-13-2023 End: 01-13-2023 ambulatory PANFILO OREILLY Facility:[facility] Start: 01-12-2023 End: 01-13-2023 Emergency department patient [facility] Start: 01-12-2023 End: 01-13-2023 Dr. T[facility] Start: 01-12-2023 End: 01-13-2023 Emergency department patient visit PANFILO OREILLY Facility:[facility] Start: 01-06-2023 Orders Only Panfilo heath MD Work Phone: [facility] Comment on above: Necrotizing soft tis jung infection Medication Request Patient Update Start: 01-03-2023 Refill Panfilo Oreilly MD Work Phone: [facility] Comment on above: Refill Request Start: 01-02-2023 Patient Outreach Brissa white [facility] Work Phone: Pharmacy Comment on above: Transition Of Care ( TCM Pharmacy-Hospital discharge 01/01/23/) Transition Of Care ( TCM initial outreach-dc'd from [facility] 01/01/23) Missed Appointment ( Pharmacy visit reschedule) Start: 12-31-2022 Refill Panfilo Oreilly MD Work Phone: [facility] Comment on above: Refill Request Start: 12-27-2022 Refill Anabella andujar APRN.BLOCK SAWYER [facility] Comment on above: Refill Request Start: 12-26-2022 Telephone encounter T[facility] MD [facility] Comment on above: Patient Update Start: 12-25-2022 ambulatory Jersey AngelBLOCK SAWYER Work Phone: Critical Care Start: 12-25-2022 End: 01-01-2023 Evaluation and management of inpatient PANFILO OREILLY Facility:[facility] Start: 12-24-2022 End: 12-25-2022 Emergency department patient visit Dr. Tino Oreilly Work Phone: [facility]-Emergency Department Start: 12-24-2022 End: 12-25-2022 Dr. Tino Oreilly Work Phone: [facility]-Emergency Department Start: 12-24-2022 Telephone encounter Tino Oreilly MD Work Phone: [facility] Comment on above: Patient Update Start: 12-20-2022 Non-patient / Non-visit Dr. Moe Oreilly Work Phone: [facility] Start: 12-20-2022 Dr. Tino Oreilly Work Phone: [facility] Start: 12-19-2022 Non-patient / Non-visit Dr. Moe Oreilly Work Phone: [facility] Start: 12-19-2022 Dr. Tino Oreilly Work Phone: [facility] Start: 12-18-2022 Non-patient / Non-visit Dr. Moe Oreilly Work Phone: [facility] Start: 12-18-2022 End: 12-20-2022 Evaluation and management of inpatient [facility]. T[facility] Start: 12-18-2022 End: 12-20-2022 Dr. Tino [facility] Start: 12-12-2022 Refill Panfilo Oreilly MD Work Phone: [facility] Comment on above: Refill Request Medication Problem Start: 12-11-2022 End: 12-11-2022 ambulatory PANFILO OREILLY Facility:[facility] Start: 12-09-2022 End: 12-09-2022 Emergency department patient visit Dr. Tino Oreilly Work Phone: [facility]-Emergency Department Start: 12-09-2022 End: 12-09-2022 Dr. Tino Oreilly Work Phone: [facility]-Emergency Department Start: 12-05-2022 Telephone encounter Robert Pritchett pedro [facility] Work Phone: [facility] Comment on above: Missed Appointment Start: 11-27-2022 Refill Panfilo Oreilly MD Work Phone: [facility] Comment on above: Refill Request Start: 11-11-2022 Telephone encounter Tino Oreilly MD Work Phone: [facility] Comment on above: Results Start: 11-08-2022 End: 11-08-2022 Patient encounter procedure Panfilo Oreilly MD Work Phone: [facility] Comment on above: Strep pharyngitis (P rimary Dx); Reactive airway disease with acute exacerbation, unspecified asthma severity, unspecified whether persistent; Tremor; LOGAN treated with BiPAP; Morbid obesity ([facility]); Type 2 diabetes mellitus with diabetic polyneuropathy, with long-term current use of insulin ([facility]); Episodic lightheadedness; Dehydration Start: 11-06-2022 End: 11-06-2022 Patient encounter procedure Minesh Mosley Work Phone: Podiatry Comment on above: Onychomycosis (Prima ry Dx); Pain in toe of left foot; Pain in toe of right foot; Other diabetic neurological complication associated with type 2 diabetes mellitus (HCC); Hyperkeratosis; Chronic venous insufficiency; Diminished pulses in lower extremity Start: 11-05-2022 Telephone encounter Tino Oreilly MD Work Phone: [facility] Comment on above: Orders Start: 11-01-2022 End: 11-01-2022 Emergency department patient visit Dr. Tino Oreilly Work Phone: [facility]-Emergency Department Start: 10-30-2022 End: 10-30-2022 ambulatory Robert Sanchez [facility] Work Phone: [facility] Comment on above: Type 2 diabetes monse itus with diabetic polyneuropathy, with long-term current use of insulin (HCC) (Primary Dx); History of tobacco use Start: 10-30-2022 End: 10-30-2022 Telemedicine consultation with patient Robert Sanchez [facility] Work Phone: [facility] Start: 10-22-2022 Telephone encounter Tino Oreilly MD Work Phone: [facility] Comment on above: Patient Update Start: 10-21-2022 Telephone encounter Tino Oreilly MD Work Phone: [facility] Comment on above: Results (No answer a nd VM not set up. [facility] message sent to request patient call in for results on Lab and xray.) Start: 10-18-2022 Telephone encounter Tino Oreilly MD Work Phone: [facility] Comment on above: Prescription Clarifi cation Start: 10-18-2022 End: 10-18-[address] Tino Oreilly Work Phone: [facility] Work Phone: Start: 10-18-2022 End: 10-18-[address] Tino Oreilly Work Phone: [facility]-Laboratory, Specimen Start: 10-18-2022 End: 10-18-2022 Subsequent hospital visit by physician X[facility] Work Phone: Radiology Comment on above: Acute diastolic CHF (congestive heart failure) (HCC) [I50.31] Start: 10-18-2022 End: 10-18-2022 Patient encounter procedure Panfilo Oreilly MD Work Phone: [facility] Comment on above: Acute diastolic CHF (congestive heart failure) (HCC) (Primary Dx); COPD with exacerbation (HCC); Bacterial pneumonia; Hypoxia; LOGAN treated with BiPAP; Bilateral lower extremity edema; Type 2 diabetes mellitus with diabetic polyneuropathy, with long-term current use of insulin (HCC); Other chest pain; Tremor; Tobacco use Start: 10-04-2022 Refill Panfilo Oreilly MD Work Phone: [facility] Comment on above: Refill Request Start: 09-25-[address] Endy Oreilly Work Phone: [facility]-Patient Link Start: 09-24-2022 Non-patient / Non-visit Dr. Moe Oreilly Work Phone: [facility] Start: 09-23-2022 Non-patient / Non-visit Dr. Moe Oreilly Work Phone: [facility] Start: 09-22-2022 Non-patient / Non-visit Dr. Moe Oreilly Work Phone: [facility] Start: 09-22-2022 End: 09-24-2022 Evaluation and management of inpatient [facility] Start: 09-09-2022 Telephone encounter Tino Oreilly MD Work Phone: Internal [facility] [place] Comment on above: Medication Problem Start: 08-27-2022 Refill Panfilo Oreilly MD Work Phone: [facility] Comment on above: Refill Request Start: 08-01-2022 End: 08-01-2022 ambulatory Robert Sanchez [facility] Work Phone: [facility] Comment on above: Diabetes resources Type 2 diabetes monse itus with diabetic polyneuropathy, with long-term current use of insulin (HCC) (Primary Dx) Start: 08-01-2022 E-mail encounter pierre altman caregiver Robert Sanchez [facility] Work Phone: [employer] Start: 08-01-2022 End: 08-01-2022 Telemedicine consultation with patient Robert Sanchez [facility] Work Phone: [facility] Start: 07-24-2022 Refill Panfilo Oreilly MD Work Phone: [facility] Comment on above: Refill Request Start: 07-23-2022 End: 07-23-2022 Patient encounter procedure Berenice Bauman MD Work Phone: General Surgery Comment on above: Screening for colon cancer (Primary Dx); Chest pain, unspecified type; Morbid obesity (HCC) Start: 07-11-2022 Telephone encounter Robert Shreyas ortega [facility] Work Phone: [facility] Comment on above: Appointment Start: 07-09-2022 Telephone encounter Tino Oreilly MD Work Phone: [facility] Comment on above: Medication Problem ( Patient requesting all RX's for medications and diabetic supplies be sent to [facility] in [place].) Start: 07-09-2022 End: 07-09-2022 Subsequent hospital visit by physician X[facility] Work Phone: Radiology Comment on above: ov Start: 07-05-2022 Refill Hallie Martinez APRN.CNP Work Phone: [facility] Comment on above: Refill Request; Refi ll Request Start: 07-03-2022 Telephone encounter Tino Oreilly MD Work Phone: [facility] Comment on above: Forms (DM Supplies ) Start: 06-28-2022 Telephone encounter Tino Oreilly MD Work Phone: [facility] Comment on above: Appointment (patient past due for follow up- no show on 06/18/22) Start: 2022 Telephone encounter Robert ortega [facility] Work Phone: [facility] Comment on above: Missed Appointment Refill Request Start: 06-13-2022 Telephone encounter Robert ortega [facility] Work Phone: [facility] Comment on above: Missed Appointment Erroneous encounter- disregard Start: 06-05-2022 Refill Panfilo Oreilly MD Work Phone: [facility] Comment on above: Refill Request Start: 05-29-2022 ambulatory Panfilo Oreilly MD Work Phone: Internal Medicine [facility] Start: 05-02-2022 End: 05-02-2022 ambulatory Robert Sanchez [facility] Work Phone: [facility] Comment on above: Type 2 diabetes monse itus with diabetic polyneuropathy, with long-term current use of insulin (HCC) (Primary Dx) Start: 05-02-2022 End: 05-02-2022 Telemedicine consultation with patient Robert Sanchez [facility] Work Phone: [employer] Start: 05-01-2022 Refill Panfilo Oreilly MD Work Phone: [facility] Comment on above: Refill Request Start: 04-09-2022 Telephone encounter Tino Oreilly MD Work Phone: [facility] Comment on above: Patient Update Start: 04-03-2022 Telephone encounter Robert ortega [facility] Work Phone: [facility] Comment on above: Diabetes Start: 03-31-2022 End: 03-31-2022 Emergency department patient visit Dr. Tino Oreilly Work Phone: [facility]-Emergency Department Start: 03-29-2022 Telephone encounter Robert ortega [facility] Work Phone: [facility] Comment on above: Medication Problem Start: 03-28-2022 Telephone encounter Tino Oreilly MD Work Phone: [facility] Comment on above: Patient Update; Medi cation Request Start: 03-28-2022 End: 03-28-2022 ambulatory Robert Sanchez [facility] Work Phone: [facility] Comment on above: Type 2 diabetes monse itus with diabetic polyneuropathy, with long-term current use of insulin (HCC) (Primary Dx) Start: 03-28-2022 End: 03-28-2022 [facility]: [facility] Start: 03-20-2022 Telephone encounter Hallie hua APRN.BLOCK SAWYER Work Phone: [facility] Comment on above: Results Start: 03-19-2022 End: 03-19-2022 Patient encounter procedure Hallie Martinez APRN.BLOCK SAWYER Work Phone: [facility] Comment on above: Type 2 diabetes monse itus with diabetic polyneuropathy, with long-term current use of insulin (HCC) (Primary Dx); Dysuria; LOGAN (obstructive sleep apnea); Essential hypertension; Chronic respiratory failure with hypoxia ([facility]); Hyperlipidemia, unspecified hyperlipidemia type Start: 03-05-2022 Telephone encounter Tino Oreilly MD Work Phone: [facility] Comment on above: insurance requests c hange insulin Start: 03-01-2022 Non-patient / Non-visit Dr. Moe Oreilly Work Phone: [facility] Start: 03-01-2022 End: 03-01-[address] Tino Oreilly Work Phone: [facility]-Pulmonary Services/Neurology Start: 02-07-2022 End: 02-07-[address] [facility] Start: 01-29-2022 Telephone encounter Tino Oreilly MD Work Phone: [facility] Comment on above: Patient Request Start: 01-25-2022 Telephone encounter Hallie hua APRN.BLOCK SAWYER Work Phone: [facility] Comment on above: medication instructi ons Patient Request Medication Question Start: 01-23-2022 Telephone encounter Hallie hua APRN.BLOCK SAWYER Work Phone: [facility] Comment on above: Orders Start: 01-17-2022 Non-patient / Non-visit Dr. Moe Oreilly Work Phone: [facility] Start: 01-16-2022 Non-patient / Non-visit Dr. Moe Oreilly Work Phone: [facility] Start: 01-15-2022 Non-patient / Non-visit Dr. Moe Oreilly Work Phone: [facility] Start: 01-15-2022 End: 01-18-2022 Evaluation and management of inpatient Dr. Tino Oreilly Work Phone: [facility] Start: 01-14-2022 Refill Panfilo Oreilly MD Work Phone: [facility] Comment on above: Refill Request (SEE RX NOTES) Start: 08-01-2021 End: 08-01-2021 Subsequent hospital visit by physician [facility] Work Phone: Radiology Comment on above: Chronic respiratory failure with hypoxia (HCC) [J96.11] Start: 06-19-2021 Telephone encounter Tino Oreilly MD Work Phone: [facility] Comment on above: Insurance Authorizat ion ([employer]) Procedures Date Procedure Procedure Detail Performing Clinician Start: 08-19-2025 Estimated creatinine clearance Delmy Solorzano MD Work Phone: Start: 08-18-2025 Serum inorganic phos phate measurement Delmy Solorzano MD Work Phone: Start: 08-17-2025 Radiologic examinati on foot 2 views Delmy Solorzano MD Work Phone: Start: 08-16-2025 Estimated creatinine clearance Delmy Solorzano MD Work Phone: Start: 08-16-2025 X-ray of chest, PA a nd lateral views Delmy Solorzano MD Work Phone: Start: 08-16-2025 Bacterial nucleic acid assay Delmy Solorzano MD Work Phone: Start: 08-16-2025 Blood culture Delmy huerta MD Work Phone: Start: 08-16-2025 Gram stain microscopy C carina Solorzano MD Work Phone: Start: 08-16-2025 Microbial culture, routine Delmy Solorzano MD Work Phone: Start: 01-14-2024 Plain chest X-ray Start: 10-14-2023 US scan of thyroid Dr. Tino Oreilly Work Phone: Start: 07-14-2023 Plain chest X-ray Dr. Juan José Oreilly Work Phone: Start: 04-24-2023 Investigation of tra nsfusion reaction Dr. Tino Oreilly Work Phone: Start: 04-24-2023 Legionella pneumophi la antigen assay Dr. Tino Oreilly Work Phone: Start: 04-24-[address] l culture Dr. Tino Oreilly Work Phone: Start: 04-23-2023 Plain chest X-ray Dr. Juan José Oreilly Work Phone: Start: 04-23-2023 Bacteria identified in Blood by Culture Dr. Tino Oreilly Work Phone: Start: 03-03-2023 Plain chest X-ray Dr. Juan José Oreilly Work Phone: Start: 03-02-2023 Plain chest X-ray Dr. Juan José Oreilly Work Phone: Start: 02-18-2023 Computed tomography of abdomen and pelvis with intravenous contrast Dr. Tino Oreilly Work Phone: Start: 02-18-2023 End: 02-18-2023 CT of lower limb with contrast Dr. Tino Oreilly Work Phone: Start: 02-18-2023 Cul bact xcpt urine blood/stool aerobic isol Panfilo Oreilly MD Work Phone: Start: 12-25-2022 Antibody screen NAHOMI OREILLY Comment on above: Order Comment: Speci men Type: BLOOD SPECIMENOrdering Facility: [facility] Address: [facility] [place] [address] Performed By: #### T SCR ####[facility] [id number] [place] [address] [facility] Start: 12-24-2022 CT of pelvis with contrast Dr. Tino Oreilly Work Phone: Start: 12-18-2022 Plain chest X-ray Dr. Juan José Oreilly Work Phone: Start: 12-09-2022 Plain chest X-ray Dr. Juan José Oreilly Work Phone: Start: 11-01-2022 Plain chest X-ray Dr. Juan José Oreilly Work Phone: Start: 10-18-2022 Radiologic exam ches t 2 views Panfilo Oreilly MD Work Phone: Start: 09-22-2022 Plain chest X-ray Start: 07-09-2022 Radiologic exam ches t 2 views Panfilo Oreilly MD Work Phone: Start: 03-31-2022 Plain chest X-ray Dr. Juan José Oreilly Work Phone: Start: 03-19-2022 Urnls dip stick/tabl et rgnt auto w/o microscopy 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BLOCK SAWYER Work Phone: Start: 01-17-2022 Bacteria identified in Blood by Culture Dr. Tino Oreilly Work Phone: Start: 01-16-2022 Plain x-ray of pelvi s and lower extremity Dr. Tino Oreilly Work Phone: Start: 01-16-2022 X-ray of lumbar spin e, two or three views Dr. Tino Oreilly Work Phone: Start: 01-16-2022 Investigation of tra nsfusion reaction Dr. Tino Oreilly Work Phone: Start: 01-16-2022 End: 01-16-[address] Tino Oreilly Work Phone: Start: 01-15-2022 CT of head without contrast Dr. Tino Oreilly Work Phone: Start: 01-15-2022 CT cervical spine wi thout contrast Dr. Tino Oreilly Work Phone: Start: 01-15-2022 Plain chest X-ray Dr. Juan José Oreilly Work Phone: Start: 01-15-2022 Radiologic examinati on of knee Dr. Tino Oreilly Work Phone: Start: 01-15-2022 End: 01-15-2022 Legionella pneumophila antigen assay Dr. Tino Oreilly Work Phone: Start: 01-15-2022 Streptococcus pneumo niae Antigen (M Dr. Tino Oreilly Work Phone: Start: 08-01-2021 Radiologic exam ches t 2 views Panfilo Oreilly MD Work Phone: Start: 02-14-2021 Adult depression scr eening assessment Panfilo Oreilly MD Work Phone: Start: 10-09-2017 Mammography Tino Oreilly MD Work Phone: Anaerobic microbial culture Dr. Tino Oreilly Work Phone: Bacteria identified in Blood by Culture Dr. Tino Oreilly Work Phone: Bacteria identified in Blood by Culture Dr. Tino Oreilly Work Phone: Bacteria identified in Blood by Culture Dr. Tino Oreilly Work Phone: Investigation of tra nsfusion reaction Dr. Tino Oreilly Work Phone: Investigation of tra nsfusion reaction Dr. Tino Oreilly Work Phone: Investigation of tra nsfusion reaction Dr. Tino Oreilly Work Phone: Microbial culture, routine D waylon Oreilly Work Phone: Respiratory microbia l culture Dr. Tino Oreilly Work Phone: Respiratory microbia l culture Dr. Tino Oreilly Work Phone: Respiratory syncytia l virus antigen assay Dr. Tino Oreilly Work Phone: Respiratory syncytia l virus antigen assay Dr. Tino Oreilly Work Phone: SARS-CoV-2 & FLU Ant igen (Rapid) SARS-CoV-2 & FLU Ant igen (Rapid) Dr. Tino Oreilly Work Phone: Streptococcus pyogen es antigen assay Dr. Tino Oreilly Work Phone: Streptococcus pyogen es antigen assay Dr. Tino Oreilly Work Phone: Urine culture Dr. Tino Oreilly Work Phone: Urine culture Dr. Tino Oreilly Work Phone: Urine culture Dr. Tino Oreilly Work Phone: Dr. Tino Oreilly Work Phone: Dr. Tino Oreilly Work Phone: Dr. Tino Oreilly Work Phone: Dr. Tino Oreilly Work Phone: Plan of Treatment Date Care Activity Detail Author Start: 2042 PNEUMOCOCCAL (3 - PP SV23 if available, else PCV20) PNEUMOCOCCAL (3 - PPSV23 if available, else PCV20) [facility] Start: 2042 PNEUMOCOCCAL (3 - PP SV23 or PCV20) PNEUMOCOCCAL (3 - PPSV23 or PCV20) [facility] Start: 2042 Pneumococcal vaccination Pneum ococcal Vaccine (3 of 3 - PPSV23 or PCV20) [facility] Start: 07-01-2027 Urine microalbumin profile [facility] Start: 08-19-[facility]25 [facility] Start: 08-19-2025 Consultation [facility] Start: 08-18-2025 [facility] Start: 08-17-2025 [facility] Start: 08-17-2025 Care regimes management [facility] Start: 08-17-2025 Notification of physician [facility] Start: 08-17-2025 [facility] Start: 08-17-2025 Referral to cargo router [facility] Start: 08-16-2025 Contact precautions [facility] Start: 08-16-2025 Following clinical pathway protocol [facility] Start: 08-16-2025 Application of elast ic bandage [facility] Start: 08-16-2025 Assessment of risk o f venous thromboembolism [facility] Start: 08-16-2025 Care regimes management [facility] Start: 08-16-2025 Consultation for treatment [facility] Start: 08-16-2025 Continuous pulse oximetry [facility] Start: 08-16-2025 Elevation of affecte d extremity [facility] Start: 08-16-2025 Fall prevention [facility] Start: 08-16-2025 Inhalation therapy procedure [facility] Start: 08-16-2025 Insertion of cathete r into peripheral vein [facility] Start: 08-16-2025 Introduction of urin shaina catheter [facility] Start: 08-16-2025 Measuring intake and output [facility] Start: 08-16-2025 Notification of physician [facility] Start: 08-16-2025 Oxygen therapy [facility] Start: 08-16-[address] [facility] Start: 08-16-2025 Patient referral to dietitian [facility] Start: 08-16-2025 Providing care accor ding to standard [facility] Start: 08-16-2025 Provision of activit y privileges [facility] Start: 08-16-2025 Referral for physica l therapy [facility] Start: 08-16-2025 Referral to occupati onal therapist [facility] Start: 08-16-2025 Referral to service [facility] Start: 08-16-2025 Tobacco use cessatio n education [facility] Start: 08-16-2025 Wound care [facility] Start: 08-16-2025 End: 08-16-2025 [facility] Start: 08-16-2025 Dual pressure sponta neous ventilation support [facility] Start: 08-16-2025 Verification routine [facility] Start: 08-16-2025 Admission procedure [facility] Start: 08-16-2025 Hospital admission, emergency, from emergency room, medical nature [facility] Start: 08-16-2025 [facility] Start: 08-16-2025 Bacterial nucleic ac id assay [facility] Start: 08-16-2025 End: 08-16-2025 [facility] Start: 08-16-2025 Bacteria identified in Blood by Culture Blood Culture [facility] Start: 08-16-2025 Microscopic observat ion [Identifier] in Unspecified specimen by Gram stain [facility] Start: 08-16-2025 Skin and Soft Tissue MRSA/MSSA (PCR Skin and Soft Tissue MRSA/MSSA (PCR [facility] Start: 08-16-2025 Wound Culture Wound Culture [facility] Start: 08-16-2025 Patient referral to dietitian [facility] Start: 08-16-2025 [facility] Start: 08-01-2024 Covid-19 Vaccine ( season) Covid-19 Vaccine ( season) [facility] Start: 08-01-2024 Influenza vaccination Influenza Vacc ine (#1) [facility] Start: 06-24-2024 ANNUAL PCP TEAM SUPPLY MANAGER SHAY DISEASE VISIT ANNUAL PCP TEAM CHRONIC DISEASE VISIT [facility] Start: 06-24-2024 BP CONTROLLED (<130/80) BP CONTROLLE D (<130/80) [facility] Start: 05-02-2024 BP CONTROLLED (<130/80) BP CONTROLLE D (<130/80) [facility] Start: 04-28-2024 BP CONTROLLED (<130/80) BP CONTROLLE D (<130/80) [facility] Start: 04-02-2024 BP CONTROLLED (<130/80) BP CONTROLLE D (<130/80) [facility] Start: 03-28-2024 [facility] Start: 03-12-2024 BP CONTROLLED (<130/80) BP CONTROLLE D (<130/80) [facility] Start: 03-11-2024 ANNUAL PCP TEAM SUPPLY MANAGER SHAY DISEASE VISIT ANNUAL PCP TEAM CHRONIC DISEASE VISIT [facility] Start: 03-10-2024 BP CONTROLLED (<130/80) BP CONTROLLE D (<130/80) [facility] Start: 02-28-2024 BP CONTROLLED (<130/80) BP CONTROLLE D (<130/80) [facility] Start: 02-19-2024 ANNUAL PCP TEAM SUPPLY MANAGER SHAY DISEASE VISIT ANNUAL PCP TEAM CHRONIC DISEASE VISIT [facility] Start: 02-19-2024 BP CONTROLLED (<130/80) BP CONTROLLE D (<130/80) [facility] Start: 02-19-2024 Hepatitis B surface antibody level LDL CHOLESTEROL [facility] Start: 01-15-2024 [facility] Start: 01-13-2024 BP CONTROLLED (<130/80) BP CONTROLLE D (<130/80) [facility] Start: 12-25-2023 3 comp foot exam completed DIABETIC FOOT EXAM [facility] Start: 12-25-2023 Diabetic foot examination Diabetic F oot Exam [facility] Start: 12-01-2023 Depression Assessment Depression Ass essment [facility] Start: 11-08-2023 ANNUAL PCP TEAM SUPPLY MANAGER SHAY DISEASE VISIT ANNUAL PCP TEAM CHRONIC DISEASE VISIT [facility] Start: 11-08-2023 BP CONTROLLED (<130/80) BP CONTROLLE D (<130/80) [facility] Start: 10-18-2023 ANNUAL PCP TEAM SUPPLY MANAGER SHAY DISEASE VISIT ANNUAL PCP TEAM CHRONIC DISEASE VISIT [facility] Start: 10-18-2023 BP CONTROLLED (<130/80) BP CONTROLLE D (<130/80) [facility] Start: 09-25-2023 Vitamin B12 measurement [facility] Start: 09-24-2023 Hemoglobin A1c measurement HbA1C [facility] Start: 09-24-2023 Hemoglobin A1c/Hemoglobin.total in Blood HBA1C [facility] Start: 09-01-2023 Hemoglobin A1c/Hemoglobin.total in Blood HBA1C [facility] Start: 08-01-2023 Covid-19 Vaccine () Covid-19 Vaccine () [facility] Start: 08-01-2023 Influenza vaccination C [facility] Start: 07-15-[address] [facility] Start: 07-14-2023 Oxygen therapy [facility] Start: 07-14-2023 Ambulation without limitation [facility] Start: 07-14-2023 Assessment of risk o f venous thromboembolism [facility] Start: 07-14-2023 Care regimes management [facility] Start: 07-14-[address] [facility] Start: 07-14-2023 Insertion of cathete r into peripheral vein [facility] Start: 07-14-2023 Measuring intake and output [facility] Start: 07-14-2023 Notification of physician [facility] Start: 07-14-2023 Patient referral to dietitian [facility] Start: 07-14-2023 Providing care accor ding to standard [facility] Start: 07-14-2023 [facility] Start: 07-14-2023 Following clinical pathway protocol [facility] Start: 07-14-2023 Admission procedure [facility] Start: 07-14-2023 [facility] Start: 07-14-2023 Patient referral to dietitian [facility] Start: 07-09-2023 3 comp foot exam completed DIABETIC FOOT EXAM [facility] Start: 07-09-2023 ANNUAL PCP TEAM SUPPLY MANAGER SHAY DISEASE VISIT ANNUAL PCP TEAM CHRONIC DISEASE VISIT [facility] Start: 07-09-2023 Hepatitis B screening URINE ALBUMIN:CREATININE RATIO [facility] Start: 05-21-2023 Hemoglobin A1c/Hemoglobin.total in Blood HBA1C [facility] Start: 04-30-2023 HPV TESTING HPV TESTING [facility] Start: 04-30-2023 PAP TESTING PAP TESTING [facility] Start: 04-30-2023 Screening for malign ant neoplasm of cervix [facility] Start: 04-25-[address] [facility] Start: 04-25-2023 [facility] Start: 04-24-2023 Referral to service [facility] Start: 04-24-2023 Care planning and pr oblem solving actions [facility] Start: 04-24-2023 Measuring intake and output [facility] Start: 04-24-[address] [facility] Start: 04-23-2023 End: 04-24-2023 [facility] Start: 04-23-2023 Consultation for treatment [facility] Start: 04-23-2023 Following clinical pathway protocol [facility] Start: 04-23-2023 Assessment of risk o f venous thromboembolism [facility] Start: 04-23-2023 Care regimes management [facility] Start: 04-23-2023 Continuous pulse oximetry [facility] Start: 04-23-2023 Incentive spirometry [facility] Start: 04-23-2023 Inhalation therapy procedure [facility] Start: 04-23-2023 Insertion of cathete r into peripheral vein [facility] Start: 04-23-2023 Notification of physician [facility] Start: 04-23-2023 Oxygen therapy [facility] Start: 04-23-2023 Physiotherapy of chest [facility] Start: 04-23-2023 Providing care accor ding to standard [facility] Start: 04-23-2023 Provision of activit y privileges [facility] Start: 04-23-2023 Referral to service [facility] Start: 04-23-2023 Wound care [facility] Start: 04-23-2023 Dual pressure sponta neous ventilation support [facility] Start: 04-23-2023 Admission procedure [facility] Start: 04-23-2023 Consultation [facility] Start: 04-23-2023 Patient referral to dietitian [facility] Start: 04-23-2023 [facility] Start: 03-19-2023 ANNUAL PCP TEAM SUPPLY MANAGER SHAY DISEASE VISIT ANNUAL PCP TEAM CHRONIC DISEASE VISIT [facility] Start: 03-11-2023 Blood chemistry [facility] Start: 03-10-2023 Blood chemistry [facility] Start: 03-09-2023 Blood chemistry [facility] Start: 03-08-2023 Blood chemistry [facility] Start: 03-07-2023 Blood chemistry [facility] Start: 03-05-[address] [facility] Start: 03-05-2023 Physiotherapy of chest [facility] Start: 03-04-2023 Care planning and pr oblem solving actions [facility] Start: 03-04-2023 [facility] Start: 03-03-2023 End: 03-03-2023 Referral to service [facility] Start: 03-03-2023 Patient referral to dietitian [facility] Start: 03-03-2023 [facility] Start: 03-02-2023 [facility] Start: 03-02-2023 End: 03-02-2023 [facility] Start: 03-02-2023 Following clinical pathway protocol [facility] Start: 03-02-2023 Assessment of risk o f venous thromboembolism [facility] Start: 03-02-2023 Care regimes management [facility] Start: 03-02-2023 Consultation [facility] Start: 03-02-2023 Consultation for treatment [facility] Start: 03-02-2023 Continuous pulse oximetry [facility] Start: 03-02-2023 Elevation of head of bed [facility] Start: 03-02-2023 Insertion of cathete r into peripheral vein [facility] Start: 03-02-2023 Measuring intake and output [facility] Start: 03-02-2023 Patient referral to dietitian [facility] Start: 03-02-2023 Providing care accor ding to standard [facility] Start: 03-02-2023 Referral to occupati onal therapist [facility] Start: 03-02-2023 Referral to service [facility] Start: 03-02-2023 Vital signs measurements [facility] Start: 03-02-2023 Wound care [facility] Start: 03-02-2023 Admission procedure [facility] Start: 03-02-2023 End: 03-02-2023 Blood culture [facility] Start: 03-02-2023 Dual pressure sponta neous ventilation support [facility] Start: 03-02-2023 Inhalation therapy procedure [facility] Start: 02-18-[address] [facility] Start: 02-09-2023 Hemoglobin A1c/Hemoglobin.total in Blood HBA1C [facility] Start: 02-06-2023 Hemoglobin A1c/Hemoglobin.total in Blood HBA1C [facility] Start: 01-23-2023 3 comp foot exam completed DIABETIC FOOT EXAM [facility] Start: 01-23-2023 ANNUAL PCP TEAM SUPPLY MANAGER SHAY DISEASE VISIT ANNUAL PCP TEAM CHRONIC DISEASE VISIT [facility] Start: 01-23-2023 BP CONTROLLED (<130/80) BP CONTROLLE D (<130/80) [facility] Start: 12-24-2022 End: 12-24-2022 Blood culture [facility] Start: 12-24-2022 [facility] Start: 12-20-[address] [facility] Start: 12-20-2022 Referral to service [facility] Start: 12-20-2022 Consultation for treatment [facility] Start: 12-19-2022 Assessment of risk o f venous thromboembolism [facility] Start: 12-19-2022 Care regimes management [facility] Start: 12-19-2022 Continuous positive airway pressure ventilation treatment [facility] Start: 12-19-2022 Inhalation therapy procedure [facility] Start: 12-19-2022 Insertion of cathete r into peripheral vein [facility] [facility] Start: 12-19-2022 Notification of physician [facility] Start: 12-19-2022 Oxygen therapy [facility] Start: 12-19-2022 Providing care accor ding to standard [facility] Start: 12-19-2022 Provision of activit y privileges [facility] Start: 12-19-2022 Referral to occupati onal therapist [facility] Start: 12-19-2022 Referral to service [facility] Start: 12-19-2022 [facility] Start: 12-19-2022 Following clinical pathway protocol [facility] Start: 12-19-2022 Patient referral to dietitian [facility] Start: 12-18-2022 Verification routine [facility] Start: 12-18-2022 Admission procedure [facility] Start: 12-12-2022 BP CONTROLLED (<130/80) BP CONTROLLE D (<130/80) [facility] Start: 12-12-2022 Hepatitis B surface antibody level LDL CHOLESTEROL [facility] Start: 12-09-2022 [facility] Start: 12-01-2022 DEPRESSION ASSESSMENT DEPRESSION ASS ESSMENT [facility] Start: 11-18-2022 End: 01-18-2023 Comprehensive metabolic 2000 panel - Serum or Plasma COMP METABOLIC PANEL Lab Routine KERRY (acute kidney injury) (HCC) Expected: 11/18/2022, Expires: 01/18/2023 [facility] Work Phone: Comment on above: Expected: 11/18/2022 , Expires: 01/18/2023 Start: 11-01-2022 [facility] Start: 10-31-2022 End: 12-31-2022 Basic metabolic 2000 panel - Serum or Plasma BASIC METABOLIC PNL Lab Routine Type 2 diabetes mellitus with diabetic polyneuropathy, with long-term current use of insulin (HCC) Expected: 10/31/2022, Expires: 12/31/2022 [facility] Work Phone: Comment on above: Expected: 10/31/2022 , Expires: 12/31/2022 Start: 10-09-2022 Hemoglobin A1c/Hemoglobin.total in Blood HBA1C [facility] Start: 09-25-2022 [facility] Work Phone: Start: 09-24-[address] [facility] Start: 09-23-2022 End: 09-24-2022 [facility] Start: 09-23-2022 Inhalation therapy procedure [facility] Start: 09-22-2022 Ambulation without limitation [facility] Start: 09-22-2022 Application of elast ic bandage [facility] Start: 09-22-2022 Assessment of risk o f venous thromboembolism [facility] Start: 09-22-2022 Care regimes management [facility] Start: 09-22-2022 Continuous pulse oximetry [facility] Start: 09-22-2022 Elevation of affecte d extremity [facility] Start: 09-22-2022 Elevation of head of bed [facility] Start: 09-22-[address] [facility] Start: 09-22-2022 Incentive spirometry [facility] Start: 09-22-2022 Insertion of cathete r into peripheral vein [facility] Start: 09-22-2022 Measuring intake and output [facility] Start: 09-22-2022 Notification of physician [facility] Start: 09-22-2022 Oxygen therapy [facility] Start: 09-22-[address] [facility] Start: 09-22-2022 Physiotherapy of chest [facility] Start: 09-22-2022 Providing care accor ding to standard [facility] Start: 09-22-2022 Referral to occupati onal therapist [facility] Start: 09-22-2022 Referral to service [facility] Start: 09-22-2022 End: 09-22-2022 [facility] Start: 09-22-2022 Dual pressure sponta neous ventilation support [facility] Start: 09-22-2022 Verification routine [facility] Work Phone: Start: 09-22-2022 End: 09-22-2022 Following clinical pathway protocol [facility] Start: 09-22-2022 Troponin I measurement [facility] Work Phone: Start: 09-22-2022 Admission procedure [facility] Start: 09-22-2022 [facility] Work Phone: Start: 09-22-2022 End: 09-22-2022 Blood culture [facility] Work Phone: Start: 09-22-2022 End: 09-23-2022 [facility] Start: 08-01-2022 Hepatitis B screening URINE ALBUMIN:CREATININE RATIO [facility] Start: 08-01-2022 Influenza vaccination INFLUENZA (#1) [facility] Start: 2022 COLOGUARD (FIT-DNA) COLOGUARD (FIT-D NA) [facility] Start: 2022 Colonoscopy COLONOSCOPY [facility] Start: 2022 COLORECTAL CANCER SCREENING COLORECTAL CANCER SCREENING [facility] Start: [address] COLONOGRAPHY [facility] Start: 2022 FECAL OCCULT BLOOD FECAL OCCULT BLOO D [facility] Start: 2022 Screening for malign ant neoplasm of colon [facility] Start: 2022 SIGMOIDOSCOPY SIGMOIDOSCOPY [facility] Start: 06-18-2022 End: 08-18-2022 Hemoglobin A1c/Hemoglobin.total in Blood [facility] Comment on above: Expected: 06/18/2022 , Expires: 08/18/2022 Start: 03-19-2022 End: 05-19-2022 Comprehensive metabolic 2000 panel - Serum or Plasma [facility] Work Phone: Comment on above: Expected: 03/19/2022 , Expires: 05/19/2022 Start: 03-19-2022 End: 05-19-2022 Hemoglobin A1c/Hemoglobin.total in Blood [facility] Work Phone: Comment on above: Expected: 03/19/2022 , Expires: 05/19/2022 Start: 03-15-2022 COVID-19 VACCINE (3 - Booster for Damir series) COVID-19 VACCINE (3 - Booster for Damir series) [facility] Start: 03-12-2022 Hemoglobin A1c/Hemoglobin.total in Blood HBA1C [facility] Start: 02-14-2022 Adult depression screening assessment DEPRESSION SCREENING [facility] Start: 12-01-2021 DEPRESSION ASSESSMENT DEPRESSION ASS ESSMENT [facility] Start: 10-09-2018 Mammography MAMMOGRAM [facility] Start: 10-09-2018 Screening for malign ant neoplasm of breast Mammogram Screening [facility] Start: 08-31-2016 TWO PNEUMOVAX 5 YEAR S APART PRIOR TO AGE 65 (#2) TWO PNEUMOVAX 5 YEARS APART PRIOR TO AGE 65 (#2) [facility] Start: 1996 HEPATITIS B (1 of 3 - Risk 3-dose series) HEPATITIS B (1 of 3 - Risk 3-dose series) [facility] Start: 1996 Hepatitis B Vaccine (1 of 3 - 19+ 3-dose series) Hepatitis B Vaccine (1 of 3 - 19+ 3-dose series) [facility] Start: 1995 Depression Screening Depression Scre ening [facility] Start: 1987 Glaucoma screening Dilated Retinal E xam [facility] Start: 1987 Hepatitis C antibody , confirmatory test [facility] Start: 1977 HEPATITIS B (1 of 3 - 3-dose series) HEPATITIS B (1 of 3 - 3-dose series) [facility] Bacteria identified in Blood by Culture Blood Culture [facility] Bacteria identified in Urine by Culture Urine Culture [facility] Work Phone: Bacteria identified in Wound by Culture ABSCESS AND WOUND CULTURE WITH GRAM STAIN Microbiology Routine Abscess of groin, left Non-healing open wound of left groin, initial encounter 02/18/2023 12:05 PM EDT [facility] Work Phone: Bilirubin measuremen t, urine [facility] Blood culture [facility] Work Phone: End: 10-18-2023 ECG COMPLETE ECG COMPLETE ECG Routine Acute diastolic CHF (congestive heart failure) (HCC) Other chest pain 1 Occurrences starting 10/18/2022 until 10/18/2023 [facility] Work Phone: Comment on above: 1 Occurrences starti ng 10/18/2022 until 10/18/2023 End: 11-08-2023 EPIL EEG ROUTINE EPIL EEG ROUTINE NEUROLOGY TACO Tremor 1 Occurrences starting 11/08/2022 until 11/08/2023 [facility] Work Phone: Comment on above: 1 Occurrences starti ng 11/08/2022 until 11/08/2023 Ferritin [Mass/volum e] in Serum or Plasma [facility] Folate [Mass/volume] in Serum or Plasma [facility] Hemoglobin [Presence ] in Urine [facility] Iron [Mass/mass] in Unspecified specimen [facility] Iron and Iron bindin g capacity panel - Serum or Plasma [facility] Iron saturation [Mas s Fraction] in Serum or Plasma [facility] Magnesium measurement [facility] End: 05-29-2024 SHERYL SCREENING SHERYL SCREENING Radiology Routine Encounter for screening mammogram for breast cancer 1 Occurrences starting 04/30/2023 until 05/29/2024 [facility] Work Phone: Comment on above: 1 Occurrences starti ng 04/30/2023 until 05/29/2024 Measurement of keton es in urine using dipstick [facility] Microbial culture, routine [facility] Microscopic urinalysis [facility] End: 11-17-2023 NM CARDIAC PERF STRESS/PHARM NM CARDIAC PERF STRESS/PHARM Radiology TACO Acute diastolic CHF (congestive heart failure) (HCC) 1 Occurrences starting 10/18/2022 until 11/17/2023 [facility] Work Phone: Comment on above: 1 Occurrences starti ng 10/18/2022 until 11/17/2023 OCCULT BLD EXAM-DIAG OCCULT BLD EXAM-DIAG Microbiology Routine Screening for colon cancer Ordered: 07/23/2022 [facility] Work Phone: Comment on above: Ordered: 07/23/2022 Patient Education [facility] Work Phone: Patient referral [facility] Work Phone: pH of Urine [facility] End: 11-06-2023 PVR ANK PRESS [facility] V[facility] Lab Routine Onychomycosis Other diabetic neurological complication associated with type 2 diabetes mellitus (HCC) Diminished pulses in lower extremity 1 Occurrences starting 11/06/2022 until 11/06/2023 [facility] Work Phone: Comment on above: 1 Occurrences starti ng 11/06/2022 until 11/06/2023 Respiratory microbia l culture Respiratory Culture [facility] Work Phone: End: 06-28-2023 Screening mammography bi 2-view breast inc cad SHERYL SCREENING Radiology Routine Encounter for screening mammogram for breast cancer 1 Occurrences starting 05/29/2022 until 06/28/2023 [facility] Work Phone: Comment on above: 1 Occurrences starti ng 05/29/2022 until 06/28/2023 Specific gravity of Urine [facility] Troponin I measurement [facility] Work Phone: UA DIP, URINE (POC) UA DIP, URIN E (POC) Lab Routine Dysuria Ordered: 03/19/2022 [facility] Work Phone: Comment on above: Ordered: 03/19/2022 Urinalysis, blood, qualitative [facility] Urine culture Urine Culture [facility] Work Phone: Urine dipstick for glucose [facility] Urine dipstick for leukocyte esterase [facility] Urine dipstick for nitrite [facility] Urine dipstick for protein [facility] Urine examination [facility] Urine microscopy: epithelial cells [facility] Urine Microscopy: wh ite cells [facility] Urobilinogen [Presen ce] in Urine [facility] Wound microscopy, cu lture and sensitivities [facility] [place] OR [facility] Immunizations Immunization Date Immunization Notes Care Provider [facility] 11-10-2024 influenza, seasonal, injectable, preservative free Delmy Solorzano MD Work Phone: [facility] 09-24-2022 influenza, injectabl e, quadrivalent, preservative free Dr. Tino Oreilly Work Phone: [facility] 09-24-2022 influenza, seasonal, injectable Dr. Tino Oreilly Work Phone: [facility] 09-24-2022 influenza virus vaccine, unspecified formulation Malka Mas LPN [facility] 01-18-2022 Covid (Moderna) Dr. Margaux Oreilly Work Phone: [facility] 01-16-2022 influenza, injectabl e, quadrivalent, preservative free Dr. Tino Oreilly Work Phone: [facility] 01-16-2022 influenza, seasonal, injectable Dr. Tino Oreilly Work Phone: [facility] 12-12-2021 influenza, injectabl e, quadrivalent, contains preservative Panfilo Oreilly MD Work Phone: [facility] 07-18-2021 Covid (Paul & Paul) Dr. Tino Oreilly Work Phone: [facility] 08-31-2020 influenza, injectabl e, quadrivalent, contains preservative Panfilo Oreilly MD Work Phone: [facility] 08-31-2020 pneumococcal conjuga te vaccine, 13 valent Panfilo Oreilly MD Work Phone: [facility] 11-12-2019 influenza, injectabl e, quadrivalent, contains preservative Panfilo Oreilly MD Work Phone: [facility] 12-16-2018 influenza, injectabl e, quadrivalent, preservative free Dr. Tino Oreilly Work Phone: [facility] 12-16-2018 influenza, seasonal, injectable Dr. Tino Oreilly Work Phone: [facility] 12-16-2018 influenza, seasonal, injectable, preservative free Panfilo Oreilly MD Work Phone: [facility] 09-11-2017 influenza, injectabl e, quadrivalent, preservative free Dr. Tino Oreilly Work Phone: [facility] 09-11-2017 influenza, seasonal, injectable Panfilo Oreilly MD Work Phone: [facility] 09-11-2017 influenza, seasonal, injectable, preservative free Panfilo Oreilyl MD Work Phone: [facility] 07-01-2017 tetanus toxoid, redu aruna diphtheria toxoid, and acellular pertussis vaccine, adsorbed Panfilo Oreilly MD Work Phone: [facility] 12-20-[address] Tino Oreilly Work Phone: [facility] 12-20-2013 influenza, seasonal, injectable Panfilo Oreilly MD Work Phone: [facility] 12-20-2013 influenza, seasonal, injectable, preservative free Panfilo Oreilly MD Work Phone: [facility] 08-31-2011 pneumococcal polysaccharide vaccine, 23 valent Panfilo Oreilly MD Work Phone: [facility] 08-31-[address] Fela Oreilly Work Phone: [facility] Work Phone: 08-31-2011 pneumococcal vaccine , unspecified formulation Dr. Tino Oreilly Work Phone: [facility] Payers Date Payer Category Payer Unknown [id number] 2024 Self-pay [id number] 2024 Private Health Insurance [id number] 2023 Unknown [id number] 2022 Medicaid [employer] [id number] 2022-2022 [address] [place] [address] Medicaid [id number] 2022 Medicare [id number] 2022 Medicaid MEDICAID [facility] MEDICAID [id number] 2022-[address]22 [address] [place] [address] Medicaid [id number] 2022 Medicaid [id number] 2021 Medicare MEDICARE MEDICAR E A AND B [id number] 2021-2021 [facility] [address] [place] [address] Medicare [id number] 2021 Medicare [id number] 2016 Medicaid [id number] 2016 Unknown [id number] Medicare [id number] Medicare [id number] Private Health Insurance [id number] Unknown [id number] 462 Unknown [id number]. 462 Unknown [id number]. 462 Unknown [id number]. 462 Unknown [id number]. 462 Unknown [id number]. 462 Unknown [id number]. 462 Unknown [id number]. 462 Unknown [id number]. 462 Unknown [id number]. 462 Unknown [id number]. 462 Unknown [id number]. 462 Unknown [id number]. 462 Unknown [id number]. 462 Unknown [id number]. 462 Unknown [id number]. 462 Social History Date Type Detail Facility Start: 09-08-1996 End: 10-18-2022 Tobacco smoking status AZIS Smokes tobacco daily [facility] Start: 09-08-1996 End: 09-08-2017 History of tobacco use Cigarette Smoker [facility] Start: 08-25-2019 End: 11-05-2020 Cigarettes smoked current (pack per day) - Reported 1 [facility] Start: 08-25-2019 End: 07-09-2022 Tobacco use and exposure Smokeless tobacco non-user [facility] Start: 08-01-2021 End: 12-12-2021 Alcohol intake Current drinker of alcohol (finding) [facility] Start: 04-03-2017 History SDOH Alcohol Comment rarely [facility] Start: 1975 Sex Assigned At Not on file C [facility] Start: 01-06-2022 End: 10-18-2022 Exposure to SARS-CoV-2 (event) Not sure [facility] Start: 02-07-2022 End: 03-27-2024 Tobacco smoking status AZIS Unknown if ever smoked [facility] Start: 02-15-2020 None [facility] Start: 11-25-2019 With Family [facility] Start: 04-21-2020 Cigarettes [facility] Start: 1975 Sex Assigned At Female W [facility] Start: 01-23-2022 End: 08-17-2025 Tobacco smoking status NHIS Ex-smoker [facility] Start: 01-23-2022 End: 07-09-2022 Tobacco Comment d/c x2 wks [facility] Start: 04-03-2017 Tobacco Comment failed patches in the past [facility] History of tobacco use Current smoker [facility] Start: 07-22-2022 End: 08-01-2022 Exposure to SARS-CoV-2 (event) Yes [facility] Start: 06-24-2021 End: 09-02-2022 Exposure to SARS-CoV-2 (event) Unable to assess [facility] Start: 10-17-2022 End: 01-15-2023 History SDOH Alcohol Frequency 1 [facility] Start: 10-17-2022 End: 11-02-2022 History SDOH Alcohol Std Drinks 0 [facility] Start: 10-17-2022 End: 01-15-2023 History SDOH Social Connections Phone 5 [facility] Start: 10-17-2022 End: 01-15-2023 History SDOH Social Connections Get Together 2 [facility] Start: 10-17-2022 End: 11-02-2022 History SDOH Social Connections Living 7 [facility] Start: 10-17-2022 End: 11-02-2022 History SDOH Physical Activity DPW 3 [facility] Start: 10-17-2022 History SDOH Financial 4 [facility] Start: 01-14-2023 End: 02-18-2023 Alcohol intake Ex-drinker (finding) [facility] Start: 11-05-2020 End: 11-02-2022 Social connection and isolation panel [facility] Do you belong to any clubs or organizations such as faith groups, unions, fraternal or athletic groups, or school groups? No [facility] Are you now , , , , never or living with a partner? Never [facility] How often to you hav e a drink containing alcohol? Never [facility] How many standard dr inks containing alcohol do you have on a typical day? Patient does not drink [facility] Do you feel stress - tense, restless, nervous, or anxious, or unable to sleep at night because your mind is troubled all the time - these days [OSQ] Very much [facility] (I/We) worried wheth er (my/our) food would run out before (I/we) got money to buy more. Never true [facility] Work Phone: How hard is it for y ou to pay for the very basics like food, housing, medical care, and heating Not very hard [facility] (I/We) worried wheth er (my/our) food would run out before (I/we) got money to buy more. Sometimes true [facility] NEGATED: Highlighted row [facility] Medical Equipment Procedure Code Equipment Code Equipment Original Text Equipment Identifier Dates [id number], [id number], [id number], [id number], [id number], [id number], [id number] Start: 04-07-2018 End: 07-08-2023 Comment on above: Test blood sugar fou r times daily diagnosis e11.42 insulin: yes To use 4 times daily to monitor glucose. Dx: uncontrolled type II DM, on insulin use with insulin Use to check blood s ugars four times daily as instructed use one as directed Test blood sugar thr ee times daily diagnosis e11.42 insulin: yes Inject 1 Each subcut aneously four times daily. use with insulin Goals Date Patient Goal Desired Activity /State Personal health goal Comment on above: Formatting of this n ote might be different from the original. 04/23/18 Formatting of this n ote might be different from the original. 111 on 03/18 Formatting of this n ote might be different from the original. Reviewed with PharmD on 07/16/18 Formatting of this n ote might be different from the original. Quit 2016 Personal health goal Personal health goal Comment on above: Formatting of this n ote might be different from the original. 04/23/18 Comment on above: Formatting of this n ote might be different from the original. 111 on 03/18 Comment on above: Formatting of this n ote might be different from the original. Reviewed with PharmD on 07/16/18 Comment on above: Formatting of this n ote might be different from the original. 04/23/18 Comment on above: Formatting of this n ote might be different from the original. 2016 Functional Status Date Assessment Result Facility 08-19-2025 Functional status Ambulates [facility] Work Phone: 07-15-2023 Functional status Ambulates [facility] Work Phone: 04-25-2023 Functional status Ambulates;Bathroom Priv ilege [facility] Work Phone: 03-05-2023 Functional status Ambulates;Venu r;Bedside Commode [facility] Work Phone: 12-20-2022 Functional status Bedrest [facility] Work Phone: 09-24-2022 Functional status Ambulates [facility] Work Phone: 01-18-2022 Functional status Chair [facility] Work Phone: Mental Status Date Assessment Result Facility 08-19-2025 Cognitive function Voice/Name [facility] Work Phone: 08-16-2025 Cognitive function Level Of Cons ciousness Awake;Alert;Appropriate;Follow s Commands [facility] Work Phone: 03-27-2024 Cognitive function Level Of Cons ciousness Awake;Alert;Appropriate [facility] Work Phone: 07-14-2023 Cognitive function Voice/Name [facility] Work Phone: 07-14-2023 Cognitive function Voice/Name [facility] Work Phone: 04-25-2023 Cognitive function Voice/Name [facility] Work Phone: 03-05-2023 Cognitive function Voice/Name [facility] Work Phone: 12-20-2022 Cognitive function Voice/Name [facility] Work Phone: 12-18-2022 Cognitive function Level Of Cons ciousness Awake;Alert;Appropriate;Follow s Commands [facility] Work Phone: 12-09-2022 Cognitive function Voice/Name [facility] Work Phone: 09-24-2022 Cognitive function Voice/Name [facility] Work Phone: 09-22-2022 Cognitive function Awake;Alert;A ppropriate;Follow s Commands [facility] Work Phone: 03-31-2022 Cognitive function Awake;Alert;Appropriat e [facility] Work Phone: 01-18-2022 Cognitive function Voice/Name [facility] Work Phone: Clinical Notes 11-06-2007 to 08-19-2025 Note Date & Type Note Facility 08-19-2025 Consult note [facility] 08-19-2025 Discharge summary Note Date/Time August 19, 2025 11:58am [facility] Medical Records Department [address] [place] [address] Discharge Summary 08/19/25 1150 MR#: [id number] Acct: [id number] Name: MACARIO WALLACE Rep #:[id number] : 1975 50 From: [place] Pradhan MD PCP: Dr. 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 08/17/25 08:22 Consult: Podiatry Routine Consulting Provider: Norman Mcclendon Reason for Consult: Diabetic foot ulcers EMERGENT Consult: No MD Notified: Yes Date Notified: 08/17/25 Time Notified: 11:42 Method of Notification: Verbal 08/19/25 09:53 Consult: Infectious Disease Routine Consulting Provider: Cody Gonzalez Reason for Consult: CELLULITIS EMERGENT Consult: No MD Notified: Yes Date Notified: 08/19/25 Time Notified: 09:53 Method of Notification: Verbal Reason For Visit: RLE CELLUTIS/STASIS WOUNDS, ? HF EXAC Diagnosis Discharge Diagnosis (1) Skin ulcer of left great toe, limited to breakdown of skin: Status: Acute Code(s): L97.521 - Non-pressure chronic ulcer of other part of left foot limited to breakdown of skin (2) Cellulitis of leg: Status: Acute Code(s): L03.119 - Cellulitis of unspecified part of limb Qualifiers: Laterality: left Qualified Code(s): L03.116 - Cellulitis of left lower limb (3) Type 2 diabetes mellitus with hyperglycemia: Status: Acute Code(s): E11.65 - Type 2 diabetes mellitus with hyperglycemia (4) Chronic venous stasis dermatitis: Status: Chronic Code(s): I87.2 - Venous insufficiency (chronic) (peripheral) Plan Patient is a 50-year-old lady with multiple comorbidities who presented with swelling involving both lower extremities with an area of erythema on the right. Admitted to monitored bed for subsequent management 1. Right lower extremity cellulitis ? In the setting of extensive stasis dermatitis. Patient admitted to a monitored bed antibiotic started per protocol with Ericao and Jessie consult placed wound care nurse ? 08/18/2025; patient wound cultures so far positive for Staph aureus as well as possible Enterococcus. Remains on broad-spectrum antibiotic therapy ? 08/19/2025;Patient wound cultures came back positive for MRSA and 2 strep species. Patient was also seen in consultation by podiatry underwent sharp debridement of wound bedside. Plan is for patient to follow-up with podiatry asoutpatient. Consult placed to ID. ID recommended for patient to be discharged home on 7 more days po doxy 100mg bid and augmentin 875mg bid at discharge with podiatry followup 2. Diabetic foot ulceration ulceration at the base of the left big toe ? Patient is on antibiotic as described above ordered plain x-rays of the left foot consultation placed to podiatry ? 08/18/2025; awaiting podiatry 3. Acute on chronic congestive heart failure with preserved ejection fraction ? Patient most recent echo from 11/12/2024 demonstrated EF of 55%. Patient has been placed on a monitored bed treatment initiated with low-sodium diet, fluid restriction, strict input and output, daily weight as well as furosemide 4. Diabetes mellitus type 2 with complications including peripheral neuropathy ? Held patient oral agents did continue with her home insulin regimen and subsequently placed on Accu-Cheks ACHS with sliding scale coverage 5.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 ? Consistent use of PAP therapy encouraged 6. Hypertension ? Blood pressure controlled, home medications continued with dose adjustment as needed 7. Chronic hypoxic and hypercapnic respiratory failure ? Patient is on baseline oxygen 4 L at rest 8. Depression with anxiety ? Patient is on duloxetine 9. GERD ? On PPI 10. Subclinical hypothyroidism (new diagnosis) ? Patient started on levothyroxine 25 mcg daily 11. Dyslipidemia ?Patient is on statin therapy, continued at home dose 12. Previous history of VTE ? Patient is on systemic anticoagulation with apixaban 13. Anemia ? Secondary to chronic disorder monitoring H&H and transfuse if patient becomes symptomatic or hemoglobin falls below 7 14. Class III obesity with BMI of 67.4 ? Complicating care; Weight loss advised. Patient is on semaglutide as outpatient 15. DVT prophylaxis ? Patient is on Time spent in the patient's overall evaluation,decision-making process, review of diagnostic data, adjustment of management, discussion with other providers, nursing nursing and ancillary staff involved in patient's care documentation, 35 Minutes Medications at Discharge Home Medications multivit-iron 18 mg-folic acid 400 mcg-calcium 500 mg-minerals tablet 1 ea PO DAILY supplement 03/26/17 omeprazole 40 mg capsule,delayed release 40 mg PO DAILY GERD 12/15/18 loratadine 10 mg tablet 10 mg PO DAILY PRN Allergies 03/01/20 apixaban 5 mg tablet 5 mg PO BID blood thinner 08/20/20 diltiazem HCl 120 mg capsule,extended release 24 hr 120 mg PO DAILY heart rate 08/20/20 lisinopril 10 mg tablet 10 mg PO DAILY blood pressure 03/26/21 metformin 500 mg tablet,extended release 24 hr 1,000 mg PO DAILY diabetes 03/26/21 metoprolol succinate 25 mg tablet,extended release 24 hr 25 mg PO DAILY blood pressure 03/26/21 atorvastatin 80 mg tablet 80 mg PO QHS cholesterol 02/07/22 furosemide 40 mg tablet 80 mg PO DAILY diuretic 09/22/22 albuterol sulfate 2.5 mg/3 mL (0.083 %) solution for nebulization 2.5 mg inhalation Q4H PRN SOB 12/09/22 fenofibrate nanocrystallized 145 mg tablet 145 mg PO DAILY CHOLESTEROL 12/09/22 insulin glargine U-300 conc 300 unit/mL (3 mL) subcutaneous pen (Toujeo Max U-300 SoloStar) 104 unit subcut BID diabetes 07/14/23 semaglutide 1 mg/dose (4 mg/3 mL) subcutaneous pen injector (Ozempic) 1 mg subcut .1XW diabetes 07/14/23 metolazone 2.5 mg tablet 2.5 mg PO .every /th #8 tabs 07/15/23 oxycodone-acetaminophen 5 mg-325 mg tablet (Percocet) 1 tab PO Q6H PRN pain 3 days #12 tabs 01/15/24 potassium chloride 20 mEq tablet,extended release(part/cryst) See Rx Instructions .Route .COMPLEX #60 TABLETS 08/05/24 duloxetine 60 mg capsule,delayed release 60 mg PO DAILY 11/09/24 ergocalciferol (vitamin D2) 1,250 mcg (50,000 unit) capsule (Vitamin D2) 1,250 mcg PO QWEEK 11/09/24 ferrous sulfate 325 mg (65 mg iron) tablet (FeroSul) 325 mg PO DAILY 11/09/24 lorazepam 1 mg tablet 1 mg PO TID 11/09/24 doxycycline monohydrate 100 mg capsule 100 mg PO BID 5 days #10 caps 11/12/24 methocarbamol 750 mg tablet 1,500 mg PO TID muscle spasm 08/16/25 oxycodone 15 mg tablet 15 mg PO Q6H PRN PRN pain 08/16/25 pregabalin 150 mg capsule 150 mg PO TID 08/16/25 semaglutide 2 mg/dose (8 mg/3 mL) subcutaneous pen injector (Ozempic) mg subcut 08/16/25 amoxicillin 875 mg-potassium clavulanate 125 mg tablet 1 tab PO BID #14 tabs 08/19/25 doxycycline hyclate 100 mg capsule 100 mg PO BID 7 days #14 caps 08/19/25 Physical Exam Narrative GENERAL: dyspneic at rest HEENT: Atraumatic; moist oral mucosa EYES; Anicteric, Normal Conjunctiva NECK; supple, normal thyroid, no distended JVD. RESPIRATORY: Diminished to auscultation bilaterally, CARDIOVASCULAR: Regular S1 S2, no audible murmurs GI: soft, non-tender, normoactive bowel sounds, : No Renal angle tenderness; EXTREMITIES: Erythema involving the right lower extremity, dry ulceration of the base of the plantar surface of the left big toe MUSCULOSKELETAL: No Joint Tenderness; NEURO: Awake; no lateralizing signs. SKIN: Bilateral stasis dermatitis PSYCH; flat affect Weight / BMI Weight Weight: 181.7 kg Body Mass Index (BMI) 66.7 ABG / Lab / Microbiology Data 08/19/25 04:57 08/19/25 04:57 Laboratory: Laboratory Results - last 24 hr 08/18/25 11:54: POC Glucose 341 H 08/18/25 14:56: POC Glucose 456 H* 08/18/25 16:33: POC Glucose 460 H* 08/18/25 21:04: POC Glucose 458 H* 08/19/25 04:57: WBC 7.7, RBC 3.60 L, Hgb 10.2 L, Hct 32.7 L, MCV 90.8, MCH 28.3,MCHC 31.2 L, RDW Std Deviation 43.4, RDW Coeff of Darrion 13.2, Plt Count 277, MPV 10.0, Immature Gran % (Auto) 1.000 H, Neut % (Auto) 63.3, Lymph % (Auto) 25.6, [place] % (Auto) 6.0, Eos % (Auto) 3.2, Baso % (Auto) 0.9, Absolute Neuts (auto) 4.9, Absolute Lymphs (auto) 1.98, Nucleated RBC % 0, Sodium 135, Potassium 4.0, Chloride 89 L, Carbon Dioxide 35.7 H, Anion Gap 10, BUN 25 H, Creatinine 0.93, Estim Creat Clear Calc 126.36, Est GFR (MDRD) Non-Af 76, BUN/Creatinine Ratio 26.4 H, Glucose 397 H, Calcium 9.5, Vancomycin Trough 19.6 H 08/19/25 08:01: POC Glucose 393 H Microbiology: Microbiology 08/16/25 18:45 Wound - Leg, Right Gram Stain - Final 08/16/25 18:45 Wound - Leg, Right Wound Culture - Preliminary Meth. resistant Staph. aureus Streptococcus thoraltensis Streptococcus mitis/ oralis 08/16/25 19:30 Blood Culture (Wb) - Left Hand Blood Culture - Preliminary No growth in 48 hours. 08/16/25 19:55 Blood Culture (Wb) - Right Hand Blood Culture - Preliminary No growth in 48 hours. 08/16/25 18:45 Wound - Right Foot Skin and Soft Tissue MRSA/MSSA (PCR - Final Meth. resistant Staph. aureus D/C Instructions Discharge Activity: Return to Normal Activity Call your doctor if you observe: Fever of 101 or Higher, Shortness of breath, Fainting spells and Chest pain DC O2, CPAP, BIPAP Needs Home O2 Discharge instructions: No Meaningful Use Info Meaningful Use Meaningful Use Diagnoses (Choose all that apply): None applicable Discharge Plan Admission Admit Date/Time: 08/16/25 21:09 Attending Provider: Jersey Pradhan Primary Care Provider: Delmy Solorzano Consulting Providers: Olamide Mas; Norman Mcclendon; Cody Gonzalez Discharge Orders/Prescriptions Prescriptions: New doxycycline hyclate 100 mg capsule 100 mg PO BID 7 Days Qty: 14 0RF amoxicillin-pot clavulanate 875-125 mg tablet 1 tab PO BID Qty: 14 0RF Continued loratadine 10 mg tablet 10 mg PO DAILY PRN (Reason: Allergies) lisinopril 10 mg tablet 10 mg PO DAILY Patient Comments: TAKE 1 TABLET BY MOUTH EVERY DAY metformin 500 mg tablet extended release 24 hr 1,000 mg PO DAILY metoprolol succinate 25 mg tablet extended release 24 hr 25 mg PO DAILY Patient Comments: TAKE 1 TABLET BY MOUTH EVERY DAY atorvastatin 80 mg tablet 80 mg PO QHS [id number]-RW-calcium-mins 1 EACH tablet 1 ea PO DAILY Patient Comments: vitamin omeprazole 40 MG capsule,delayed release(DR/EC) 40 mg PO DAILY diltiazem HCl 120 MG capsule 120 mg PO DAILY apixaban 5 MG tablet 5 mg PO BID furosemide 40 mg tablet 80 mg PO DAILY albuterol sulfate 2.5 mg /3 mL (0.083 %) solution for nebulization 2.5 mg inhalation Q4H PRN (Reason: SOB) fenofibrate nanocrystallized 145 mg tablet 145 mg PO DAILY oxycodone-acetaminophen [Percocet] 5-325 mg tablet 1 tab PO Q6H PRN (Reason: pain) 3 Days Qty: 12 0RF insulin glargine U-300 conc [Toujeo Max U-300 SoloStar] 300 unit/mL (3 mL) insulin pen 104 unit SUBCUT BID Patient Comments: PT STATES SHE TAKES THIS BUT DOES NOT KNOW HOW OFTEN OR HOW MANY UNITS Ozempic 1 mg/dose (4 mg/3 mL) pen injector 1 mg SUBCUT .1XW metolazone 2.5 mg tablet 2.5 mg PO .every / Qty: 8 1RF ferrous sulfate [FeroSul] 325 mg (65 mg iron) tablet 325 mg PO DAILY ergocalciferol (vitamin D2) [Vitamin D2] 1,250 mcg (50,000 unit) capsule 1,250 mcg PO QWEEK lorazepam 1 mg tablet 1 mg PO TID duloxetine 60 mg capsule,delayed release(DR/EC) 60 mg PO DAILY doxycycline monohydrate 100 mg Capsule 100 mg PO BID 5 Days Qty: 10 0RF oxycodone 15 mg tablet 15 mg PO Q6H PRN PRN (Reason: pain) methocarbamol 750 mg tablet 1,500 mg PO TID pregabalin 150 mg capsule 150 mg PO TID Ozempic 2 mg/dose (8 mg/3 mL) pen injector SUBCUT Patient Comments: [NO ORIGINAL SIG] potassium chloride 20 mEq tablet,ER particles/crystals See Rx Instructions .ROUTE .COMPLEX Qty: 60 11RF Dose Instruction: TAKE 1 TABLET BY MOUTH TWICE A DAY Rx Instructions: TAKE 1 TABLET BY MOUTH TWICE A DAY Discontinued cephalexin 500 mg capsule 500 mg PO TID Qty: 14 0RF Referrals / Follow Up: Delmy Solorzano MD [Primary Care Provider, Family Practice] - Within 1 Week Norman Mcclendon DPM [Med Staff - Courtesy Staff, Podiatry] - Within 1 Week Disposition Disposition (needs filled in before D/C Order can be placed): Home, Self Care Charges/Coding Visit Charges Inpatient E&M: 75666 Disch Hosp >30min 08/19/25 1158 <Electronically signed by Jersey Pradhan MD> Cosigner Signature (if applicable): CC: Dr. Delmy Solorzano MD; Dr. Jersey Pradhan MD~ Signed [facility] Work Phone: 1(363) 727-481509-19-2025 Consult note Author Cody Gonzalez [facility] Note Date/Time August 19, 2025 11:00am [facility] Medical Records Department [address] [place] [address] [place] [address] Consultation - Infectious Dx 08/19/25 1056 MR#: [id number] Acct: [id number] Name: MACARIO WALLACE Rep #:[id number] : 1975 50 From: Cody peralta MD PCP: Dr. Delmy Solorzano MD Status:ADM IN Location: [place] [address] Assessment & Plan Assessment/Plan (1) Skin ulcer of left great toe, limited to breakdown of skin: (2) Cellulitis of leg: QUALIFIERS: Laterality: left Qualified Code(s): L03.116 - Cellulitis of left lower limb PLAN: BLE cellulitis with L 1st toe wound. Wound cx with MRSA and strep x2. Onvanc/unasyn. Plan on 7 more days po doxy 100mg bid and augmentin 875mg bid at discharge with podiatry followup. Leg wraps, diuresis, glucose control, and wound care will help prevent recurrence of infection. Will follow, thank you (3) Type 2 diabetes mellitus with hyperglycemia: (4) Chronic venous stasis dermatitis: HPI Consult Data Date of Consult: 08/19/25 HPI Narrative Reason for Consultation: cellulitis HPI Narrative: MACARIO WALLACE, is a 50 F with h/o CKD, COPD, DM, neuropathy, presented 08/16 to ED with about a week progressive BLE swelling, redness, pain, drainage. Has worsening wound on L toe. Had associated fever and chills. Admitted here, now on vanc/unasyn, feeling better, pain improved. Full ROS performed and neg except as noted above. [facility] Medical History Cellulitis of leg MRSA cellulitis of left foot Arthritis Non-smoker CHF (congestive heart failure) History of diabetes mellitus Anemia Hypoxia Morbid obesity Venous stasis dermatitis of both lower extremities BMI 60.0-69.9, adult Noncompliance with CPAP treatment Acute on chronic respiratory failure with hypoxia and hypercapnia Perianal abscess Type 2 diabetes mellitus with hyperglycemia Contusion of knee, right Chronic diastolic (congestive) heart failure Depression Diabetes GERD (gastroesophageal reflux disease) BiPAP (biphasic positive airway pressure) dependence Sleep apnea On home oxygen therapy Smoker COPD (chronic obstructive pulmonary disease) Hypertension Congestive heart failure KERRY (acute kidney injury) Chronic respiratory failure with hypoxia Opiate overdose History of left heart catheterization (LHC) (~01/05/19) Type 2 diabetes mellitus Old myocardial infarction Essential hypertension Restrictive lung disease secondary to obesity Dyspnea on exertion Pulmonary embolism Hidradenitis Non-healing open wound of left groin Open wound of vulva with complication Necrotizing soft tissue infection Abscess of vulva Soft tissue abscess of inguinal region Respiratory failure with hypoxia Abscess Hyperglycemia due to type 2 diabetes mellitus NSTEMI (non-ST elevated myocardial infarction) Tobacco abuse Hyperlipidemia Morbid obesity History of MRSA infection Anxiety 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 Home Medications ?Medication ?Instructions ?Recorded ?Last Taken ?Type multivit-iron 18 mg-folic acid 400 1 ea PO DAILY suppl ement 03/26/17 07/14/23 History mcg-calcium 500 mg-minerals tablet omeprazole 40 mg capsule,delayed 40 mg PO DAILY GERD 0 12/15/18 07/14/23 History release loratadine 10 mg tablet 10 mg PO DAILY PRN Allergies 03/01/20 07/14/23 History apixaban 5 mg tablet 5 mg PO BID blood thinner 07/14/23 History diltiazem HCl 120 mg 120 mg PO DAILY heart rate 0 08/20/20 07/14/23 History capsule,extended release 24 hr lisinopril 10 mg tablet 10 mg PO DAILY blood pressur e 03/26/21 07/14/23 History metformin 500 mg tablet,extended 1,000 mg PO DAILY richard betes 03/26/21 07/14/23 History release 24 hr metoprolol succinate 25 mg 25 mg PO DAILY blood pressu re 03/26/21 07/14/23 History tablet,extended release 24 hr atorvastatin 80 mg tablet 80 mg PO QHS cholesterol 09/2107/14/23 History furosemide 40 mg tablet 80 mg PO DAILY diuretic 09/0107/14/23 History albuterol sulfate 2.5 mg/3 mL 2.5 mg inhalation Q4H GA N SOB 12/09/22 07/10/23 History (0.083 %) solution for nebulization fenofibrate nanocrystallized 145 145 mg PO DAILY MACIEL STEROL 12/09/22 07/14/23 History mg tablet insulin glargine U-300 conc 300 104 unit subcut BID di abetes 07/14/23 07/13/23 History unit/mL (3 mL) subcutaneous pen (Toujeo Max U-300 SoloStar) semaglutide 1 mg/dose (4 mg/3 mL) 1 mg subcut .1XW richard betes 07/14/23 07/13/23 History subcutaneous pen injector (Ozempic) metolazone 2.5 mg tablet 2.5 mg PO .every /thurs #8 tabs 07/15/23 Unknown Rx oxycodone-acetaminophen 5 mg-325 1 tab PO Q6H PRN pain 3 days #12 01/15/24 Unknown Rx mg tablet (Percocet) tabs potassium chloride 20 mEq See Rx Instructions .Route 0 08/05/24 Unknown Rx tablet,extended release(part/cryst) .COMPLEX #60 TABLE TS duloxetine 60 mg capsule,delayed 60 mg PO DAILY Unknown History release ergocalciferol (vitamin D2) 1,250 1,250 mcg PO QWEEK 1 01/10/24 Unknown History mcg (50,000 unit) capsule (Vitamin D2) ferrous sulfate 325 mg (65 mg 325 mg PO DAILY 11/09/24 Unknown History iron) tablet (FeroSul) lorazepam 1 mg tablet 1 mg PO TID 11/09/24 Unknown History cephalexin 500 mg capsule 500 mg PO TID #14 caps 11/12 Unknown Rx doxycycline monohydrate 100 mg 100 mg PO BID 5 days #1 0 caps 11/12/24 Unknown Rx capsule methocarbamol 750 mg tablet 1,500 mg PO TID muscle spa sm 08/16/25 Unknown History oxycodone 15 mg tablet 15 mg PO Q6H PRN PRN pain Unknown History pregabalin 150 mg capsule 150 mg PO TID 08/16/25 Unkno wn History semaglutide 2 mg/dose (8 mg/3 mL) mg subcut 08/16/25 U nknown History subcutaneous pen injector (Ozempic) Allergy/AdvReac Type Severity Reaction Status Date / Time cyclobenzaprine HCl (From Allergy Hives Verified 08/16/25 18:21 Flexeril) venlafaxine (From Effexor) AdvReac Severe hives Verified 08/16/25 18:21 Family History Father CVA (cerebral vascular accident) Heart disease Diabetes Mother Thyroid disorder Surgical History History of delivery H/O arthroscopic knee surgery History of cholecystectomy Social History (Updated 08/16/25 @ 21:[address] Olamide Mas MD) household members: none Smoking Status: Former smoker how long ago did patient quit smokin PPD smoker, quit x 1 year approximately. second hand exposure: Yes alcohol intake: never substance use type: does not use caffeine: Yes Type: carbonated beverages Number of servings: 1 and coffee Number of servings: 1 Physical Exam Const alert, oriented x3 and no apparent distress General Appearance: cooperative HEENT normocephalic and head/scalp atraumatic Eyes PERRL and EOMs intact bilaterally Neck supple and No nodes Resp normal air movement and clear to auscultation bilaterally Cardio regular rate and regular rhythm GI soft to palpation, non-tender and non-distended Extremity General Extremity: edema Skin Skin Narrative: reviewed wound photos Neuro CN's II-XII intact bilaterally Lab / Micro Data Attestation: I reviewed the patient's lab results. 08/19/25 04:57 08/19/25 04:57 Labs: Laboratory Results - last 24 hr 08/18/25 11:54: POC Glucose 341 H 08/18/25 14:56: POC Glucose 456 H* 08/18/25 16:33: POC Glucose 460 H* 08/18/25 21:04: POC Glucose 458 H* 08/19/25 04:57: WBC 7.7, RBC 3.60 L, Hgb 10.2 L, Hct 32.7 L, MCV 90.8, MCH 28.3,MCHC 31.2 L, RDW Std Deviation 43.4, RDW Coeff of Darrion 13.2, Plt Count 277, MPV 10.0, Immature Gran % (Auto) 1.000 H, Neut % (Auto) 63.3, Lymph % (Auto) 25.6, [place] % (Auto) 6.0, Eos % (Auto) 3.2, Baso % (Auto) 0.9, Absolute Neuts (auto) 4.9, Absolute Lymphs (auto) 1.98, Nucleated RBC % 0, Sodium 135, Potassium 4.0, Chloride 89 L, Carbon Dioxide 35.7 H, Anion Gap 10, BUN 25 H, Creatinine 0.93, Estim Creat Clear Calc 126.36, Est GFR (MDRD) Non-Af 76, BUN/Creatinine Ratio 26.4 H, Glucose 397 H, Calcium 9.5, Vancomycin Trough 19.6 H 08/19/25 08:01: POC Glucose 393 H Micro: Microbiology 08/16/25 18:45 Wound - Leg, Right Gram Stain - Final 08/16/25 18:45 Wound - Leg, Right Wound Culture - Preliminary Meth. resistant Staph. aureus Streptococcus thoraltensis Streptococcus mitis/ oralis 08/16/25 19:30 Blood Culture (Wb) - Left Hand Blood Culture - Preliminary No growth in 48 hours. 08/16/25 19:55 Blood Culture (Wb) - Right Hand Blood Culture - Preliminary No growth in 48 hours. 08/19/25 1100 <Electronically signed by Cody Gonzalez MD> Cosigner Signature (if applicable): CC: Dr. Delmy Solorzano MD~ Signed [facility] Work Phone: 1(891) 205-620309-19-2025 Progress note Author Jersey Pradhan [facility] Note Date/Time August 19, 2025 10:14am [facility] Medical Records Department [address] [place] [address] Progress Note - Hospitalist 08/19/25 0750 MR#: [id number] Acct: [id number] Name: MACARIO WALLACE Rep #:[id number] : 1975 50 From: Jersey Pradhan MD PCP: Dr. Delmy Solorzano MD Status:ADM IN Location: [place] [address]- Reason for Visit Chief Complaint: Worsening LE edema, orthopnea, dyspnea, RLE stasis blisters with drainage. Subjective Subjective Patient wound cultures came back positive for MRSA and 2 strep species. Patientwas also seen in consultation by podiatry underwent sharp debridement of wound bedside. Plan is for patient to follow-up with podiatry as outpatient. Consultplaced to ID Objective Data Objective Data Vital Signs: Vital Signs Temp Pulse Resp BP Pulse Ox O2 Del Method O2 Flow Rate 97.7 F L 74 18 130/64 H 94 Nasal Cannula 5 08/19/25 03:25 08/19/25 03:25 08/19/25 03:25 08/19/25 03:25 08/19/25 03:25 08/19/25 03:25 08/19/25 03:25 FiO2 30 08/19/25 03:30 Oxygen Flow Rate (L/min) 5 Oxygen Delivery Method Nasal Cannula Weight: 181.7 kg Body Mass Index (BMI) 66.7 Intake & Output: Intake and Output for Last 24 Hours 08/17/25 08/18/25 08/19/25 23:59 23:59 23:59 Intake Total 2754 / 3114 2445 / 2445 470 / 470 Output Total 1100 / 1650 3700 / 3700 800 / 800 Balance 1654 / 1464 -1255 / -1255 -330 / -330 Lab / Micro Data 08/19/25 04:57 08/19/25 04:57 Labs: Laboratory Results - last 24 hr 08/18/25 07:52: POC Glucose 279 H 08/18/25 11:54: POC Glucose 341 H 08/18/25 14:56: POC Glucose 456 H* 08/18/25 16:33: POC Glucose 460 H* 08/18/25 21:04: POC Glucose 458 H* 08/19/25 04:57: WBC 7.7, RBC 3.60 L, Hgb 10.2 L, Hct 32.7 L, MCV 90.8, MCH 28.3,MCHC 31.2 L, RDW Std Deviation 43.4, RDW Coeff of Darrion 13.2, Plt Count 277, MPV 10.0, Immature Gran % (Auto) 1.000 H, Neut % (Auto) 63.3, Lymph % (Auto) 25.6, [place] % (Auto) 6.0, Eos % (Auto) 3.2, Baso % (Auto) 0.9, Absolute Neuts (auto) 4.9, Absolute Lymphs (auto) 1.98, Nucleated RBC % 0, Sodium 135, Potassium 4.0, Chloride 89 L, Carbon Dioxide 35.7 H, Anion Gap 10, BUN 25 H, Creatinine 0.93, Estim Creat Clear Calc 126.36, Est GFR (MDRD) Non-Af 76, BUN/Creatinine Ratio 26.4 H, Glucose 397 H, Calcium 9.5, Vancomycin Trough 19.6 H Micro: Microbiology 08/16/25 19:30 Blood Culture (Wb) - Left Hand Blood Culture - Preliminary No growth in 48 hours. 08/16/25 19:55 Blood Culture (Wb) - Right Hand Blood Culture - Preliminary No growth in 48 hours. 08/16/25 18:45 Wound - Leg, Right Gram Stain - Final 08/16/25 18:45 Wound - Leg, Right Wound Culture - Preliminary Staphylococcus aureus GPC Poss Enterococcus sp Alpha Hemolytic Streptococcus 08/16/25 18:45 Wound - Right Foot Skin and Soft Tissue MRSA/MSSA (PCR - Final Meth. resistant Staph. aureus Physical Exam Narrative GENERAL: dyspneic at rest HEENT: Atraumatic; moist oral mucosa EYES; Anicteric, Normal Conjunctiva NECK; supple, normal thyroid, no distended JVD. RESPIRATORY: Diminished to auscultation bilaterally, CARDIOVASCULAR: Regular S1 S2, no audible murmurs GI: soft, non-tender, normoactive bowel sounds, : No Renal angle tenderness; EXTREMITIES: Erythema involving the right lower extremity, dry ulceration of the base of the plantar surface of the left big toe MUSCULOSKELETAL: No Joint Tenderness; NEURO: Awake; no lateralizing signs. SKIN: Bilateral stasis dermatitis PSYCH; flat affect Assessment & Plan Assessment/Plan (1) Cellulitis of leg: QUALIFIERS: Laterality: left Qualified Code(s): L03.116 - Cellulitis of left lower limb PLAN: Plan Patient is a 50-year-old lady with multiple comorbidities who presented with swelling involving both lower extremities with an area of erythema on the right. Admitted to monitored bed for subsequent management 1. Right lower extremity cellulitis ? In the setting of extensive stasis dermatitis. Patient admitted to a monitored bed antibiotic started per protocol with Vanco and Unasyn consult placed wound care nurse ? 08/18/2025; patient wound cultures so far positive for Staph aureus as well as possible Enterococcus. Remains on broad-spectrum antibiotic therapy ? 08/19/2025;Patient wound cultures came back positive for MRSA and 2 strep species. Patient was also seen in consultation by podiatry underwent sharp debridement of wound bedside. Plan is for patient to follow-up with podiatry asoutpatient. Consult placed to ID 2. Diabetic foot ulceration ulceration at the base of the left big toe ? Patient is on antibiotic as described above ordered plain x-rays of the left foot consultation placed to podiatry ? 08/18/2025; awaiting podiatry 3. Acute on chronic congestive heart failure with preserved ejection fraction ? Patient most recent echo from 11/12/2024 demonstrated EF of 55%. Patient has been placed on a monitored bed treatment initiated with low-sodium diet, fluid restriction, strict input and output, daily weight as well as furosemide 4. Diabetes mellitus type 2 with complications including peripheral neuropathy ? Held patient oral agents did continue with her home insulin regimen and subsequently placed on Accu-Cheks ACHS with sliding scale coverage 5.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 ? Consistent use of PAP therapy encouraged 6. Hypertension ? Blood pressure controlled, home medications continued with dose adjustment as needed 7. Chronic hypoxic and hypercapnic respiratory failure ? Patient is on baseline oxygen 4 L at rest 8. Depression with anxiety ? Patient is on duloxetine 9. GERD ? On PPI 10. Subclinical hypothyroidism (new diagnosis) ? Patient started on levothyroxine 25 mcg daily 11. Dyslipidemia ?Patient is on statin therapy, continued at home dose 12. Previous history of VTE ? Patient is on systemic anticoagulation with apixaban 13. Anemia ? Secondary to chronic disorder monitoring H&H and transfuse if patient becomes symptomatic or hemoglobin falls below 7 14. Class III obesity with BMI of 67.4 ? Complicating care; Weight loss advised. Patient is on semaglutide as outpatient 15. DVT prophylaxis ? Patient is on Time spent in the patient's overall evaluation,decision-making process, review of diagnostic data, adjustment of management, discussion with other providers, nursing nursing and ancillary staff involved in patient's care documentation, 35 Minutes 08/19/25 1014 <Electronically signed by Jersey Pradhan MD> Cosigner Signature (if applicable): CC: ~ Signed ADDENDUM by Dr. Jersey Pradhan MD on 08/19/25 at 1014 Visit Charges Inpatient E&M: 44179 Subs Hosp L2 08/19/25 1014<Electronically signed by Jersey Pradhan MD> Cosigner Signature (if applicable): cc: ~* Signed [facility] Work Phone: 1(472) 535-184609-19-2025 Discharge summary [facility] Medical Records Department [address] [place] [address] Discharge Summary 08/19/25 1150 MR#: [id number] Acct: [id number] Name: MACARIO WALLACE Rep #:[id number] : 1975 50 From: Jersey Pradhan MD PCP: Dr. Delmy Solorzano MD Status:ADM IN Location: 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 08/17/25 08:22 Consult: Podiatry Routine Consulting Provider: Norman Mcclendon Reason for Consult: Diabetic foot ulcers EMERGENT Consult: No Notified: Yes Date Notified: 08/17/25 Time Notified: 11:42 Method of Notification: Verbal 08/19/25 09:53 Consult: Infectious Disease Routine Consulting Provider: Cody Gonzalez Reason for Consult: CELLULITIS EMERGENT Consult: No Notified: Yes Date Notified: 08/19/25 Time Notified: 09:53 Method of Notification: Verbal Reason For Visit: RLE CELLUTIS/STASIS WOUNDS, ? HF EXAC Diagnosis Discharge Diagnosis (1) Skin ulcer of left great toe, limited to breakdown of skin: Status: Acute Code(s): L97.521 - Non-pressure chronic ulcer of other part of left foot limited to breakdown of skin (2) Cellulitis of leg: Status: Acute Code(s): L03.119 - Cellulitis of unspecified part of limb Qualifiers: Laterality: left Qualified Code(s): L03.116 - Cellulitis of left lower limb (3) Type 2 diabetes mellitus with hyperglycemia: Status: Acute Code(s): E11.65 - Type 2 diabetes mellitus with hyperglycemia (4) Chronic venous stasis dermatitis: Status: Chronic Code(s): I87.2 - Venous insufficiency (chronic) (peripheral) Plan Patient is a 50-year-old lady with multiple comorbidities who presented with swelling involving both lower extremities with an area of erythema on the right. Admitted to monitored bed for subsequent management 1. Right lower extremity cellulitis ? In the setting of extensive stasis dermatitis. Patient admitted to a monitored bed antibiotic started per protocol with Vanco and Unasyn consult placed wound care nurse ? 08/18/2025; patient wound cultures so far positive for Staph aureus as well as possible Enterococcus. Remains on broad-spectrum antibiotic therapy ? 08/19/2025;Patient wound cultures came back positive for MRSA and 2 strep species. Patient was also seen in consultation by podiatry underwent sharp debridement of wound bedside. Plan is for patientto follow-up with podiatry asoutpatient. Consult placed to ID. ID recommended for patient to be discharged home on 7 more days po doxy 100mg bid and augmentin 875mg bid at discharge with podiatry followup 2. Diabetic foot ulceration ulceration at the base of the left big toe ? Patient is on antibiotic as described above ordered plain x-rays of the left foot consultation placed to podiatry ? 08/18/2025; awaiting podiatry 3. Acute on chronic congestive heart failure with preserved ejection fraction ? Patient most recent echo from 11/12/2024 demonstrated EF of 55%. Patient has been placed on a monitored bed treatment initiated with low-sodium diet, fluid restriction, strict input and output, daily weight as well as furosemide 4. Diabetes mellitus type 2 with complications including peripheral neuropathy ? Held patient oral agents did continue with her home insulin regimen and subsequently placed on Accu-Cheks ACHS with sliding scale coverage 5.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 ? Consistent use of PAP therapy encouraged 6. Hypertension ? Blood pressure controlled, home medications continued with dose adjustment as needed 7. Chronic hypoxic and hypercapnic respiratory failure ? Patient is on baseline oxygen 4 L at rest 8. Depression with anxiety ? Patient is on duloxetine 9. GERD ? On PPI 10. Subclinical hypothyroidism (new diagnosis) ? Patient started on levothyroxine 25 mcg daily 11. Dyslipidemia ?Patient is on statin therapy, continued at home dose 12. Previous history of VTE ? Patient is on systemic anticoagulation with apixaban 13. Anemia ? Secondary to chronic disorder monitoring H&H and transfuse if patient becomes symptomatic or hemoglobin falls below 7 14. Class III obesity with BMI of 67.4 ? Complicating care; Weight loss advised. Patient is on semaglutide as outpatient 15. DVT prophylaxis ? Patient is on Time spent in the patient's overall evaluation,decision-making process, review of diagnostic data, adjustment of management, discussion with other providers, nursing nursing and ancillary staff involved in patient's care documentation, 35 Minutes Medications at Discharge Home Medications multivit-iron 18 mg-folic acid 400 mcg-calcium 500 mg-minerals tablet 1 ea PO DAILY supplement 03/26/17 omeprazole 40 mg capsule,delayed release 40 mg PO DAILY GERD 12/15/18 loratadine 10 mg tablet 10 mg PO DAILY PRN Allergies 03/01/20 apixaban 5 mg tablet 5 mg PO BID blood thinner 08/20/20 diltiazem HCl 120 mg capsule,extended release 24 hr 120 mg PO DAILY heart rate 08/20/20 lisinopril 10 mg tablet 10 mg PO DAILY blood pressure 03/26/21 metformin 500 mg tablet,extended release 24 hr 1,000 mg PO DAILY diabetes 03/26/21 metoprolol succinate 25 mg tablet,extended release 24 hr 25 mg PO DAILY blood pressure 03/26/21 atorvastatin 80 mg tablet 80 mg PO QHS cholesterol 02/07/22 furosemide 40 mg tablet 80 mg PO DAILY diuretic 09/22/22 albuterol sulfate 2.5 mg/3 mL (0.083 %) solution for nebulization 2.5 mg inhalation Q4H PRN SOB 12/09/22 fenofibrate nanocrystallized 145 mg tablet 145 mg PO DAILY CHOLESTEROL 12/09/22 insulin glargine U-300 conc 300 unit/mL (3 mL) subcutaneous pen (Toujeo Max U- 300 SoloStar) 104 unit subcut BID diabetes 07/14/23 semaglutide 1 mg/dose (4 mg/3 mL) subcutaneous pen injector (Ozempic) 1 mg subcut .1XW diabetes 07/14/23 metolazone 2.5 mg tablet 2.5 mg PO .every /th #8 tabs 07/15/23 oxycodone-acetaminophen 5 mg-325 mg tablet (Percocet) 1 tab PO Q6H PRN pain 3 days #12 tabs 01/15/24 potassium chloride 20 mEq tablet,extended release(part/cryst) See Rx Instructions .Route .COMPLEX #60 TABLETS 08/05/24 duloxetine 60 mg capsule,delayed release 60 mg PO DAILY 11/09/24 ergocalciferol (vitamin D2) 1,250 mcg (50,000 unit) capsule (Vitamin D2) 1,250 mcg PO QWEEK 11/09/24 ferrous sulfate 325 mg (65 mg iron) tablet (FeroSul) 325 mg PO DAILY 11/09/24 lorazepam 1 mg tablet 1 mg PO TID 11/09/24 doxycycline monohydrate 100 mg capsule 100 mg PO BID 5 days #10 caps 11/12/24 methocarbamol 750 mg tablet 1,500 mg PO TID muscle spasm 08/16/25 oxycodone 15 mg tablet 15 mg PO Q6H PRN PRN pain 08/16/25 pregabalin 150 mg capsule 150 mg PO TID 08/16/25 semaglutide 2 mg/dose (8 mg/3 mL) subcutaneous pen injector (Ozempic) mg subcut 08/16/25 amoxicillin 875 mg-potassium clavulanate 125 mg tablet 1 tab PO BID #14 tabs 08/19/25 doxycycline hyclate 100 mg capsule 100 mg PO BID 7 days #14 caps 08/19/25 Physical Exam Narrative GENERAL: dyspneic at rest HEENT: Atraumatic; moist oral mucosa EYES; Anicteric, Normal Conjunctiva NECK; supple, normal thyroid, no distended JVD. RESPIRATORY: Diminished to auscultation bilaterally, CARDIOVASCULAR: Regular S1 S2, no audible murmurs GI: soft, non-tender, normoactive bowel sounds, : No Renal angle tenderness; EXTREMITIES: Erythema involving the right lower extremity, dry ulceration of the base of the plantar surface of the left big toe MUSCULOSKELETAL: No Joint Tenderness; NEURO: Awake; no lateralizing signs. SKIN: Bilateral stasis dermatitis PSYCH; flat affect Weight / BMI Weight Weight: 181.7 kg Body Mass Index (BMI) 66.7 ABG / Lab / Microbiology Data 08/19/25 04:57 08/19/25 04:57 Laboratory: Laboratory Results - last 24 hr 08/18/25 11:54: POC Glucose 341 H 08/18/25 14:56: POC Glucose 456 H* 08/18/25 16:33: POC Glucose 460 H* 08/18/25 21:04: POC Glucose 458 H* 08/19/25 04:57: WBC 7.7, RBC 3.60 L, Hgb 10.2 L, Hct 32.7 L, MCV 90.8, MCH 28.3,MCHC 31.2 L, RDW Std Deviation 43.4, RDW Coeff of Darrion 13.2, Plt Count 277, MPV 10.0, Immature Gran % (Auto) 1.000 H, Neut % (Auto) 63.3, Lymph % (Auto) 25.6, Defiance % (Auto) 6.0, Eos % (Auto) 3.2, Baso % (Auto) 0.9, Absolute Neuts (auto) 4.9, Absolute Lymphs (auto) 1.98, Nucleated RBC % 0, Sodium 135, Potassium 4.0, Chloride 89 L, Carbon Dioxide 35.7 H, Anion Gap 10, BUN 25 H, Creatinine 0.93, Estim Creat Clear Calc 126.36, Est GFR (MDRD) Non-Af 76, BUN/Creatinine Ratio 26.4 H, Glucose 397 H, Calcium 9.5, VancomycinTrough 19.6 H 08/19/25 08:01: POC Glucose 393 H Microbiology: Microbiology 08/16/25 18:45 Wound - Leg, Right Gram Stain - Final 08/16/25 18:45 Wound - Leg, Right Wound Culture - Preliminary Meth. resistant Staph. aureus Streptococcus thoraltensis Streptococcus mitis/ oralis 08/16/25 19:30 Blood Culture (Wb) - Left Hand Blood Culture - Preliminary No growth in 48 hours. 08/16/25 19:55 Blood Culture (Wb) - Right Hand Blood Culture - Preliminary No growth in 48 hours. 08/16/25 18:45 Wound - Right Foot Skin and Soft Tissue MRSA/MSSA (PCR - Final Meth. resistant Staph. aureus D/C Instructions Discharge Activity: Return to Normal Activity Call your doctor if you observe: Fever of 101 or Higher, Shortness of breath, Fainting spells and Chest pain DC O2, CPAP, BIPAP Needs Home O2 Discharge instructions: No Meaningful Use Info Meaningful Use Meaningful Use Diagnoses (Choose all that apply): None applicable Discharge Plan Admission Admit Date/Time: 08/16/25 21:09 Attending Provider: Jersey Pradhan Primary Care Provider: Delmy Solorzano Consulting Providers: Olamide Mas; Norman Mcclendon; Cody Gonzalez Discharge Orders/Prescriptions Prescriptions: New doxycycline hyclate 100 mg capsule 100 mg PO BID 7 Days Qty: 14 0RF amoxicillin-pot clavulanate 875-125 mg tablet 1 tab PO BID Qty: 14 0RF Continued loratadine 10 mg tablet 10 mg PO DAILY PRN (Reason: Allergies) lisinopril 10 mg tablet 10 mg PO DAILY Patient Comments: TAKE 1 TABLET BY MOUTH EVERY DAY metformin 500 mg tablet extended release 24 hr 1,000 mg PO DAILY metoprolol succinate 25 mg tablet extended release 24 hr 25 mg PO DAILY Patient Comments: TAKE 1 TABLET BY MOUTH EVERY DAY atorvastatin 80 mg tablet 80 mg PO QHS [id number]-[id number]-TB-calcium-mins 1 EACH tablet 1 ea PO DAILY Patient Comments: vitamin omeprazole 40 MG capsule,delayed release(DR/EC) 40 mg PO DAILY diltiazem HCl 120 MG capsule 120 mg PO DAILY apixaban 5 MG tablet 5 mg PO BID furosemide 40 mg tablet 80 mg PO DAILY albuterol sulfate 2.5 mg /3 mL (0.083 %) solution for nebulization 2.5 mg inhalation Q4H PRN (Reason: SOB) fenofibrate nanocrystallized 145 mg tablet 145 mg PO DAILY oxycodone-acetaminophen [Percocet] 5-325 mg tablet 1 tab PO Q6H PRN (Reason: pain) 3 Days Qty: 12 0RF insulin glargine U-300 conc [Toujeo Max U-300 SoloStar] 300 unit/mL (3 mL) insulin pen 104 unit SUBCUT BID Patient Comments: PT STATES SHE TAKES THIS BUT DOES NOT KNOW HOW OFTEN OR HOW MANY UNITS Ozempic 1 mg/dose (4 mg/3 mL) pen injector 1 mg SUBCUT .1XW metolazone 2.5 mg tablet 2.5 mg PO .every / Qty: 8 1RF ferrous sulfate [FeroSul] 325 mg (65 mg iron) tablet 325 mg PO DAILY ergocalciferol (vitamin D2) [Vitamin D2] 1,250 mcg (50,000 unit) capsule 1,250 mcg PO QWEEK lorazepam 1 mg tablet 1 mg PO TID duloxetine 60 mg capsule,delayed release(DR/EC) 60 mg PO DAILY doxycycline monohydrate 100 mg Capsule 100 mg PO BID 5 Days Qty: 10 0RF oxycodone 15 mg tablet 15 mg PO Q6H PRN PRN (Reason: pain) methocarbamol 750 mg tablet 1,500 mg PO TID pregabalin 150 mg capsule 150 mg PO TID Ozempic 2 mg/dose (8 mg/3 mL) pen injector SUBCUT Patient Comments: [NO ORIGINAL SIG] potassium chloride 20 mEq tablet,ER particles/crystals See Rx Instructions .ROUTE .COMPLEX Qty: 60 11RF Dose Instruction: TAKE 1 TABLET BY MOUTH TWICE A DAY Rx Instructions: TAKE 1 TABLET BY MOUTH TWICE A DAY Discontinued cephalexin 500 mg capsule 500 mg PO TID Qty: 14 0RF Referrals / Follow Up: Delmy Solorzano MD [Primary Care Provider, Family Practice] - Within 1 Week Norman Mcclendon DPM [Med Staff - Courtesy Staff, Podiatry] - Within 1 Week Disposition Disposition (needs filled in before D/C Order can be placed): Home, Self Care Charges/Coding Visit Charges Inpatient E&M: 93516 Disch Hosp >30min 08/19/25 1158 Cosigner Signature (if applicable): CC: Dr. Delmy Solorzano MD; Dr. Jersey Pradhan MD~ Signed [facility]09-19-2025 Consult note [facility] Medical Records Department [address] [place] [address] Consultation - Infectious Dx 08/19/25 1056 MR#: [id number] Acct: [id number] Name: MACARIO WALLACE Rep #:[id number] : 1975 50 From: Cody peralta MD PCP: Dr. Delmy Solorzano MD Status:ADM IN Location: [place] [address] Assessment & Plan Assessment/Plan (1) Skin ulcer of left great toe, limited to breakdown of skin: (2) Cellulitis of leg: QUALIFIERS: Laterality: left Qualified Code(s): L03.116 - Cellulitis of left lower limb PLAN: BLE cellulitis with L 1st toe wound. Wound cx with MRSA and strep x2. Onvanc/unasyn. Plan on 7 more days po doxy 100mg bid and augmentin 875mg bid at discharge with podiatry followup. Leg wraps, diuresis, glucose control, and wound care will help prevent recurrence of infection. Will follow, thank you (3) Type 2 diabetes mellitus with hyperglycemia: (4) Chronic venous stasis dermatitis: HPI Consult Data Date of Consult: 08/19/25 HPI Narrative Reason for Consultation: cellulitis HPI Narrative: MACARIO WALLACE, is a 50 F with h/o CKD, COPD, DM, neuropathy, presented 08/16 to ED with about a weekprogressive BLE swelling, redness, pain, drainage. Has worsening wound on L toe. Had associated fever and chills. Admitted here, now on vanc/unasyn, feeling better, pain improved. Full ROS performed and neg except as noted above. [facility] Medical History Cellulitis of leg MRSA cellulitis of left foot Arthritis Non-smoker CHF (congestive heart failure) History of diabetes mellitus Anemia Hypoxia Morbid obesity Venous stasis dermatitis of both lower extremities BMI 60.0-69.9, adult Noncompliance with CPAP treatment Acute on chronic respiratory failure with hypoxia and hypercapnia Perianal abscess Type 2 diabetes mellitus with hyperglycemia Contusion of knee, right Chronic diastolic (congestive) heart failure Depression Diabetes GERD (gastroesophageal reflux disease) BiPAP (biphasic positive airway pressure) dependence Sleep apnea On home oxygen therapy Smoker COPD (chronic obstructive pulmonary disease) Hypertension Congestive heart failure KERRY (acute kidney injury) Chronic respiratory failure with hypoxia Opiate overdose History of left heart catheterization (LHC) (~01/05/19) Type 2 diabetes mellitus Old myocardial infarction Essential hypertension Restrictive lung disease secondary to obesity Dyspnea on exertion Pulmonary embolism Hidradenitis Non-healing open wound of left groin Open wound of vulva with complication Necrotizing soft tissue infection Abscess of vulva Soft tissue abscess of inguinal region Respiratory failure with hypoxia Abscess Hyperglycemia due to type 2 diabetes mellitus NSTEMI (non-ST elevated myocardial infarction) Tobacco abuse Hyperlipidemia Morbid obesity History of MRSA infection Anxiety 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 Home Medications ?Medication ?Instructions ?Recorded ?Last Taken ?Type multivit-iron 18 mg-folic acid 400 1 ea PO DAILY suppl ement 03/26/17 07/14/23 History mcg-calcium 500 mg-minerals tablet omeprazole 40 mg capsule,delayed 40 mg PO DAILY GERD 0 12/15/18 07/14/23 History release loratadine 10 mg tablet 10 mg PO DAILY PRN Allergies 03/01/20 07/14/23 History apixaban 5 mg tablet 5 mg PO BID blood thinner 07/14/23 History diltiazem HCl 120 mg 120 mg PO DAILY heart rate 0 08/20/20 07/14/23 History capsule,extended release 24 hr lisinopril 10 mg tablet 10 mg PO DAILY blood pressur e 03/26/21 07/14/23 History metformin 500 mg tablet,extended 1,000 mg PO DAILY richard betes 03/26/21 07/14/23 History release 24 hr metoprolol succinate 25 mg 25 mg PO DAILY blood pressu re 03/26/21 07/14/23 History tablet,extended release 24 hr atorvastatin 80 mg tablet 80 mg PO QHS cholesterol 09/2107/14/23 History furosemide 40 mg tablet 80 mg PO DAILY diuretic 09/0107/14/23 History albuterol sulfate 2.5 mg/3 mL 2.5 mg inhalation Q4H GA N SOB 12/09/22 07/10/23 History (0.083 %) solution for nebulization fenofibrate nanocrystallized 145 145 mg PO DAILY MACIEL STEROL 12/09/22 07/14/23 History mg tablet insulin glargine U-300 conc 300 104 unit subcut BID di abetes 07/14/23 07/13/23 History unit/mL (3 mL) subcutaneous pen (Toujeo Max U-300 SoloStar) semaglutide 1 mg/dose (4 mg/3 mL) 1 mg subcut .1XW richard betes 07/14/23 07/13/23 History subcutaneous pen injector (Ozempic) metolazone 2.5 mg tablet 2.5 mg PO .every / #8 tabs 07/15/23 Unknown Rx oxycodone-acetaminophen 5 mg-325 1 tab PO Q6H PRN pain 3 days #12 01/15/24 Unknown Rx mg tablet (Percocet) tabs potassium chloride 20 mEq See Rx Instructions .Route 0 08/05/24 Unknown Rx tablet,extended release(part/cryst) .COMPLEX #60 TABLE TS duloxetine 60 mg capsule,delayed 60 mg PO DAILY Unknown History release ergocalciferol (vitamin D2) 1,250 1,250 mcg PO QWEEK 1 01/10/24 Unknown History mcg (50,000 unit) capsule (Vitamin D2) ferrous sulfate 325 mg (65 mg 325 mg PO DAILY 11/09/24 Unknown History iron) tablet (FeroSul) lorazepam 1 mg tablet 1 mg PO TID 11/09/24 Unknown History cephalexin 500 mg capsule 500 mg PO TID #14 caps 11/12 Unknown Rx doxycycline monohydrate 100 mg 100 mg PO BID 5 days #1 0 caps 11/12/24 Unknown Rx capsule methocarbamol 750 mg tablet 1,500 mg PO TID muscle spa sm 08/16/25 Unknown History oxycodone 15 mg tablet 15 mg PO Q6H PRN PRN pain Unknown History pregabalin 150 mg capsule 150 mg PO TID 08/16/25 Unkno wn History semaglutide 2 mg/dose (8 mg/3 mL) mg subcut 08/16/25 U nknown History subcutaneous pen injector (Ozempic) Allergy/AdvReac Type Severity Reaction Status Date / Time cyclobenzaprine HCl (From Allergy Hives Verified 08/16/25 18:21 Flexeril) venlafaxine (From Effexor) AdvReac Severe hives Verified 08/16/25 18:21 Family History Father CVA (cerebral vascular accident) Heart disease Diabetes Mother Thyroid disorder Surgical History History of delivery H/O arthroscopic knee surgery History of cholecystectomy Social History (Updated 08/16/25 @ 21:[address] Olamide Mas MD) household members: none Smoking Status: Former smoker how long ago did patient quit smokin PPD smoker, quit x 1 year approximately. second hand exposure: Yes alcohol intake: never substance use type: does not use caffeine: Yes Type: carbonated beverages Number of servings: 1 and coffee Number of servings: 1 Physical Exam Const alert, oriented x3 and no apparent distress General Appearance: cooperative HEENT normocephalic and head/scalp atraumatic Eyes PERRL and EOMs intact bilaterally Neck supple and No nodes Resp normal air movement and clear to auscultation bilaterally Cardio regular rate and regular rhythm GI soft to palpation, non-tender and non-distended Extremity General Extremity: edema Skin Skin Narrative: reviewed wound photos Neuro CN's II-XII intact bilaterally Lab / Micro Data Attestation: I reviewed the patient's lab results. 08/19/25 04:57 08/19/25 04:57 Labs: Laboratory Results - last 24 hr 08/18/25 11:54: POC Glucose 341 H 08/18/25 14:56: POC Glucose 456 H* 08/18/25 16:33: POC Glucose 460 H* 08/18/25 21:04: POC Glucose 458 H* 08/19/25 04:57: WBC 7.7, RBC 3.60 L, Hgb 10.2 L, Hct 32.7 L, MCV 90.8, MCH 28.3,MCHC 31.2 L, RDW Std Deviation 43.4, RDW Coeff of Darrion 13.2, Plt Count 277, MPV 10.0, Immature Gran % (Auto) 1.000 H, Neut % (Auto) 63.3, Lymph % (Auto) 25.6, Defiance % (Auto) 6.0, Eos % (Auto) 3.2, Baso % (Auto) 0.9, Absolute Neuts (auto) 4.9, Absolute Lymphs (auto) 1.98, Nucleated RBC % 0, Sodium 135, Potassium 4.0, Chloride 89 L, Carbon Dioxide 35.7 H, Anion Gap 10, BUN 25 H, Creatinine 0.93, Estim Creat Clear Calc 126.36, Est GFR (MDRD) Non-Af 76, BUN/Creatinine Ratio 26.4 H, Glucose 397 H, Calcium 9.5, VancomycinTrough 19.6 H 08/19/25 08:01: POC Glucose 393 H Micro: Microbiology 08/16/25 18:45 Wound - Leg, Right Gram Stain - Final 08/16/25 18:45 Wound - Leg, Right Wound Culture - Preliminary Meth. resistant Staph. aureus Streptococcus thoraltensis Streptococcus mitis/ oralis 08/16/25 19:30 Blood Culture (Wb) - Left Hand Blood Culture - Preliminary No growth in 48 hours. 08/16/25 19:55 Blood Culture (Wb) - Right Hand Blood Culture - Preliminary No growth in 48 hours. 08/19/25 1100 Cosigner Signature (if applicable): CC: Dr. Delmy Solorzano MD~ Signed [facility]09-19-2025 Progress note [facility] Medical Records Department [address] [place] [address] Progress Note - Hospitalist 08/19/25 1020 MR#: [id number] Acct: [id number] Name: MACARIO WALLACE Rep #:[id number] : 1975 50 From: Jersey Pradhan MD PCP: Dr. Delmy Solorzano MD Status:ADM IN Location: [place] [address]- 1 Reason for Visit Chief Complaint: Worsening LE edema, orthopnea, dyspnea, RLE stasis blisters with drainage. Subjective Subjective Patient wound cultures came back positive for MRSA and 2 strep species. Patientwas also seen in consultation by podiatry underwent sharp debridement of wound bedside. Plan is for patient to follow-upwith podiatry as outpatient. Consultplaced to ID Objective Data Objective Data Vital Signs: Vital Signs Temp Pulse Resp BP Pulse Ox O2 Del Method O2 Flow Rate 97.7 F L 74 18 130/64 H 94 Nasal Cannula 5 08/19/25 03:25 08/19/25 03:25 08/19/25 03:25 08/19/25 03:25 08/19/25 03:25 08/19/25 03:08/19/25 03:25 FiO2 30 08/19/25 03:30 Oxygen Flow Rate (L/min) 5 Oxygen Delivery Method Nasal Cannula Weight: 181.7 kg Body Mass Index (BMI) 66.7 Intake & Output: Intake and Output for Last 24 Hours 08/17/25 08/18/25 08/19/25 23:59 23:59 23:59 Intake Total 2754 / 3114 2445 / 2445 470 / 470 Output Total 1100 / 1650 3700 / 3700 800 / 800 Balance 1654 / 1464 -1255 / -1255 -330 / -330 Lab / Micro Data 08/19/25 04:57 08/19/25 04:57 Labs: Laboratory Results - last 24 hr 08/18/25 07:52: POC Glucose 279 H 08/18/25 11:54: POC Glucose 341 H 08/18/25 14:56: POC Glucose 456 H* 08/18/25 16:33: POC Glucose 460 H* 08/18/25 21:04: POC Glucose 458 H* 08/19/25 04:57: WBC 7.7, RBC 3.60 L, Hgb 10.2 L, Hct 32.7 L, MCV 90.8, MCH 28.3,MCHC 31.2 L, RDW Std Deviation 43.4, RDW Coeff of Darrion 13.2, Plt Count 277, MPV 10.0, Immature Gran % (Auto) 1.000 H, Neut % (Auto) 63.3, Lymph % (Auto) 25.6, Defiance % (Auto) 6.0, Eos % (Auto) 3.2, Baso % (Auto) 0.9, Absolute Neuts (auto) 4.9, Absolute Lymphs (auto) 1.98, Nucleated RBC % 0, Sodium 135, Potassium 4.0, Chloride 89 L, Carbon Dioxide 35.7 H, Anion Gap 10, BUN 25 H, Creatinine 0.93, Estim Creat Clear Calc 126.36, Est GFR (MDRD) Non-Af 76, BUN/Creatinine Ratio 26.4 H, Glucose 397 H, Calcium 9.5, VancomycinTrough 19.6 H Micro: Microbiology 08/16/25 19:30 Blood Culture (Wb) - Left Hand Blood Culture - Preliminary No growth in 48 hours. 08/16/25 19:55 Blood Culture (Wb) - Right Hand Blood Culture - Preliminary No growth in 48 hours. 08/16/25 18:45 Wound - Leg, Right Gram Stain - Final 08/16/25 18:45 Wound - Leg, Right Wound Culture - Preliminary Staphylococcus aureus GPC Poss Enterococcus sp Alpha Hemolytic Streptococcus 08/16/25 18:45 Wound - Right Foot Skin and Soft Tissue MRSA/MSSA (PCR - Final Meth. resistant Staph. aureus Physical Exam Narrative GENERAL: dyspneic at rest HEENT: Atraumatic; moist oral mucosa EYES; Anicteric, Normal Conjunctiva NECK; supple, normal thyroid, no distended JVD. RESPIRATORY: Diminished to auscultation bilaterally, CARDIOVASCULAR: Regular S1 S2, no audible murmurs GI: soft, non-tender, normoactive bowel sounds, : No Renal angle tenderness; EXTREMITIES: Erythema involving the right lower extremity, dry ulceration of the base of the plantar surface of the left big toe MUSCULOSKELETAL: No Joint Tenderness; NEURO: Awake; no lateralizing signs. SKIN: Bilateral stasis dermatitis PSYCH; flat affect Assessment & Plan Assessment/Plan (1) Cellulitis of leg: QUALIFIERS: Laterality: left Qualified Code(s): L03.116 - Cellulitis of left lower limb PLAN: Plan Patient is a 50-year-old lady with multiple comorbidities who presented with swelling involving both lower extremities with an area of erythema on the right. Admitted to monitored bed for subsequent management 1. Right lower extremity cellulitis ? In the setting of extensive stasis dermatitis. Patient admitted to a monitored bed antibiotic started per protocol with Vanco and Unasyn consult placed wound care nurse ? 08/18/2025; patient wound cultures so far positive for Staph aureus as well as possible Enterococcus. Remains on broad-spectrum antibiotic therapy ? 08/19/2025;Patient wound cultures came back positive for MRSA and 2 strep species. Patient was also seen in consultation by podiatry underwent sharp debridement of wound bedside. Plan is for patientto follow-up with podiatry asoutpatient. Consult placed to ID 2. Diabetic foot ulceration ulceration at the base of the left big toe ? Patient is on antibiotic as described above ordered plain x-rays of the left foot consultation placed to podiatry ? 08/18/2025; awaiting podiatry 3. Acute on chronic congestive heart failure with preserved ejection fraction ? Patient most recent echo from 11/12/2024 demonstrated EF of 55%. Patient has been placed on a monitored bed treatment initiated with low-sodium diet, fluid restriction, strict input and output, daily weight as well as furosemide 4. Diabetes mellitus type 2 with complications including peripheral neuropathy ? Held patient oral agents did continue with her home insulin regimen and subsequently placed on Accu-Cheks ACHS with sliding scale coverage 5.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 ? Consistent use of PAP therapy encouraged 6. Hypertension ? Blood pressure controlled, home medications continued with dose adjustment as needed 7. Chronic hypoxic and hypercapnic respiratory failure ? Patient is on baseline oxygen 4 L at rest 8. Depression with anxiety ? Patient is on duloxetine 9. GERD ? On PPI 10. Subclinical hypothyroidism (new diagnosis) ? Patient started on levothyroxine 25 mcg daily 11. Dyslipidemia ?Patient is on statin therapy, continued at home dose 12. Previous history of VTE ? Patient is on systemic anticoagulation with apixaban 13. Anemia ? Secondary to chronic disorder monitoring H&H and transfuse if patient becomes symptomatic or hemoglobin falls below 7 14. Class III obesity with BMI of 67.4 ? Complicating care; Weight loss advised. Patient is on semaglutide as outpatient 15. DVT prophylaxis ? Patient is on Time spent in the patient's overall evaluation,decision-making process, review of diagnostic data, adjustment of management, discussion with other providers, nursing nursing and ancillary staff involved in patient's care documentation, 35 Minutes 08/19/25 1014 Cosigner Signature (if applicable): CC: ~ Signed ADDENDUM by Dr. Jersey Pradhan MD on 08/19/25 at 1014 Visit Charges Inpatient E&M: 19345 Subs Hosp L2 08/19/25 1014 Cosigner Signature (if applicable): cc: ~* Signed [facility]09-19-2025 Consult note Author Ryan Avina [facility] Note Date/Time August 19, 2025 6:12am [facility] Medical Records Department [address] [place] [address] Pharmacokinetic/Renal -Consult 08/19/25 0611 MR#: [id number] Acct: [id number] Name: MACARIO WALLACE Rep #:[id number] : 1975 50 From: Ryan Hernandes od PCP: Dr. Delmy Solorzano MD Status:ADM IN Y Location: [place] [address] Consult Antibiotic Management Pharmacy has been consulted to manage selected antibiotic: Vancomycin Type of Intervention Type of Consult: Follow-up Labs Labs: Sodium 135 mmol/L (133-145) 08/19/25 04:57 Potassium 4.0 mmol/L (3.3-5.1) 08/19/25 04:57 Chloride 89 mmol/L (98-108) L 08/19/25 04:57 Carbon Dioxide 35.7 mmol/L (21.0-32.0) H 08/19/25 04:57 Anion Gap 10 (5-15) 08/19/25 04:57 BUN 25 mg/dL (4-19) H 08/19/25 04:57 Creatinine 0.93 mg/dL (0.70-1.20) 08/19/25 04:57 Est GFR (MDRD) Non-Af 76 (>60) 08/19/25 04:57 BUN/Creatinine Ratio 26.4 RATIO (10-20) H 08/19/25 04:57 Glucose 397 mg/dL (70-99) H 08/19/25 04:57 Vancomycin Trough 19.6 ug/mL (5.0-15.0) H 08/19/25 04:57 Random Vancomycin 12.9 ug/mL (0.0-15.0) 08/18/25 04:20 Microbiology Microbiology: Microbiology 08/16/25 18:45 Wound - Leg, Right Gram Stain - Final 08/16/25 18:45 Wound - Leg, Right Wound Culture - Preliminary Staphylococcus aureus GPC Poss Enterococcus sp Alpha Hemolytic Streptococcus 08/16/25 18:45 Wound - Right Foot Skin and Soft Tissue MRSA/MSSA (PCR - Final Meth. resistant Staph. aureus Goal Trough Goal Trough: 15-20 mcg/mL Pharmacy Plan for Drug Dosing Pharmacy Plan for Drug Dosing: Pharmacy Service will continue to monitor and adjust dosing as required. TROUGH 19.6 @ 8 HOURS. DECREASE TO 1000MG Q8H AND DRAW TROUGTH PRIOR TO 4TH DOSE Follow-Up Labs Follow-Up Labs: Trough: Vancomycin Date/Time Labs Ordered Labs to be done on [date and time ordered]: 08/20 @ 0530 08/19/25 0612 <Electronically signed by Ryan toledo> Date _ Ryan Avina Cosigner Signature (if applicable): Date CC: ~ Signed [facility] Work Phone: 1(450) 646-496609-19-2025 Consult note [facility] Medical Records Department [address] [place] [address] Pharmacokinetic/Renal -Consult 08/19/25 0611 MR#: [id number] Acct: [id number] Name: MACARIO WALLACE Rep #:[id number] : 1975 50 From: Ryan Hernandes od PCP: Dr. Delmy Solorzano MD Status:ADM IN Location: [place] [address] Consult Antibiotic Management Pharmacy has been consulted to manage selected antibiotic: Vancomycin Type of Intervention Type of Consult: Follow-up Labs Labs: Sodium 135 mmol/L (133-145) 08/19/25 04:57 Potassium 4.0 mmol/L (3.3-5.1) 08/19/25 04:57 Chloride 89 mmol/L (98-108) L 08/19/25 04:57 Carbon Dioxide 35.7 mmol/L (21.0-32.0) H 08/19/25 04:57 Anion Gap 10 (5-15) 08/19/25 04:57 BUN 25 mg/dL (4-19) H 08/19/25 04:57 Creatinine 0.93 mg/dL (0.70-1.20) 08/19/25 04:57 Est GFR (MDRD) Non-Af 76 (>60) 08/19/25 04:57 BUN/Creatinine Ratio 26.4 RATIO (10-20) H 08/19/25 04:57 Glucose 397 mg/dL (70-99) H 08/19/25 04:57 Vancomycin Trough 19.6 ug/mL (5.0-15.0) H 08/19/25 04:57 Random Vancomycin 12.9 ug/mL (0.0-15.0) 08/18/25 04:20 Microbiology Microbiology: Microbiology 08/16/25 18:45 Wound - Leg, Right Gram Stain - Final 08/16/25 18:45 Wound - Leg, Right Wound Culture - Preliminary Staphylococcus aureus GPC Poss Enterococcus sp Alpha Hemolytic Streptococcus 08/16/25 18:45 Wound - Right Foot Skin and Soft Tissue MRSA/MSSA (PCR - Final Meth. resistant Staph. aureus Goal Trough Goal Trough: 15-20 mcg/mL Pharmacy Plan for Drug Dosing Pharmacy Plan for Drug Dosing: Pharmacy Service will continue to monitor and adjust dosing as required. TROUGH 19.6 @ 8 HOURS. DECREASE TO 1000MG Q8H AND DRAW TROUGTH PRIOR TO 4TH DOSE Follow-Up Labs Follow-Up Labs: Trough: Vancomycin Date/Time Labs Ordered Labs to be done on [date and time ordered]: 08/20 @ 0530 08/19/25 0612 lood> Date _ Ryan Perez Signature (if applicable): Date CC: ~ Signed [facility]09-18-2025 Consult note Author Norman Mcclendon [facility] Note Date/Time August 18, 2025 5:58pm [facility] Medical Records Department [address] [place] [address] Consultation 08/18/25 1748 MR#: [id number] Acct: [id number] Name: MACARIO WALLACE Rep #:[id number] : 1975 50 From: Norman Altman PCP: Dr. Delmy Solorzano MD Status:ADM IN Location: [place] [address] Assessment & Plan Assessment/Plan (1) Cellulitis of leg: QUALIFIERS: Laterality: left Qualified Code(s): L03.116 - Cellulitis of left lower limb PLAN: cont compressive dressings and antibiotics, follow up in office upon discharge (2) Chronic venous stasis dermatitis: PLAN: same as above (3) Cellulitis and abscess of right leg: PLAN: same as above (4) Sepsis: QUALIFIERS: Sepsis type: sepsis due to unspecified organism Sepsis acute organ dysfunction status: with acute organ dysfunction Severe sepsis acute organ dysfunction type: acute renal failure Acute renal failure type: with acute tubular necrosis Severe sepsis shock status: without septic shock Qualified Code(s): A41.9 - Sepsis, unspecified organism; R65.20 - Severe sepsis without septic shock; N17.0 - Acute kidney failure with tubular necrosis PLAN: same as above (5) Right leg pain: PLAN: same as above (6) Skin ulcer of left great toe, limited to breakdown of skin: PLAN: sharp debridement of wound with 15 blade today bedside, removed nonviable tissue limited to hkt tissue and margins of wound, no tracking. (7) Contusion of right great toe with damage to nail: QUALIFIERS: Encounter type: sequela Qualified Code(s): S90.211S -Contusion of right great toe with damage to nail, sequela PLAN: no tx necessary HPI Consult Data Date of Consult: 08/18/25 HPI Narrative Reason for Consultation: pt states she had increasing swelling in her legs and feet and was admitted HPI Narrative: MACARIO WALLACE, is a 50 F who presents [facility] Medical History (Updated 08/18/25 @ 17:[address] Norman Mcclendon, EARNESTINE) Cellulitis of leg MRSA cellulitis of left foot Arthritis Non-smoker CHF (congestive heart failure) History of diabetes mellitus Anemia Hypoxia Morbid obesity Venous stasis dermatitis of both lower extremities BMI 60.0-69.9, adult Noncompliance with CPAP treatment Acute on chronic respiratory failure with hypoxia and hypercapnia Perianal abscess Type 2 diabetes mellitus with hyperglycemia Contusion of knee, right Chronic diastolic (congestive) heart failure Depression Diabetes GERD (gastroesophageal reflux disease) BiPAP (biphasic positive airway pressure) dependence Sleep apnea On home oxygen therapy Smoker COPD (chronic obstructive pulmonary disease) Hypertension Congestive heart failure KERRY (acute kidney injury) Chronic respiratory failure with hypoxia Opiate overdose History of left heart catheterization (LHC) (~01/05/19) Type 2 diabetes mellitus Old myocardial infarction Essential hypertension Restrictive lung disease secondary to obesity Dyspnea on exertion Pulmonary embolism Hidradenitis Non-healing open wound of left groin Open wound of vulva with complication Necrotizing soft tissue infection Abscess of vulva Soft tissue abscess of inguinal region Respiratory failure with hypoxia Abscess Hyperglycemia due to type 2 diabetes mellitus NSTEMI (non-ST elevated myocardial infarction) Tobacco abuse Hyperlipidemia Morbid obesity History of MRSA infection Anxiety 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 Home Medications ?Medication ?Instructions ?Recorded ?Last Taken ?Type multivit-iron 18 mg-folic acid 400 1 ea PO DAILY suppl ement 03/26/17 07/14/23 History mcg-calcium 500 mg-minerals tablet omeprazole 40 mg capsule,delayed 40 mg PO DAILY GERD 0 12/15/18 07/14/23 History release loratadine 10 mg tablet 10 mg PO DAILY PRN Allergies 03/01/20 07/14/23 History apixaban 5 mg tablet 5 mg PO BID blood thinner 07/14/23 History diltiazem HCl 120 mg 120 mg PO DAILY heart rate 0 08/20/20 07/14/23 History capsule,extended release 24 hr lisinopril 10 mg tablet 10 mg PO DAILY blood pressur e 03/26/21 07/14/23 History metformin 500 mg tablet,extended 1,000 mg PO DAILY richard betes 03/26/21 07/14/23 History release 24 hr metoprolol succinate 25 mg 25 mg PO DAILY blood pressu re 03/26/21 07/14/23 History tablet,extended release 24 hr atorvastatin 80 mg tablet 80 mg PO QHS cholesterol 09/2107/14/23 History furosemide 40 mg tablet 80 mg PO DAILY diuretic 09/0107/14/23 History albuterol sulfate 2.5 mg/3 mL 2.5 mg inhalation Q4H GA N SOB 12/09/22 07/10/23 History (0.083 %) solution for nebulization fenofibrate nanocrystallized 145 145 mg PO DAILY MACIEL STEROL 12/09/22 07/14/23 History mg tablet insulin glargine U-300 conc 300 104 unit subcut BID di abetes 07/14/23 07/13/23 History unit/mL (3 mL) subcutaneous pen (Toujeo Max U-300 SoloStar) semaglutide 1 mg/dose (4 mg/3 mL) 1 mg subcut .1XW richard betes 07/14/23 07/13/23 History subcutaneous pen injector (Ozempic) metolazone 2.5 mg tablet 2.5 mg PO .every /th #8 tabs 07/15/23 Unknown Rx oxycodone-acetaminophen 5 mg-325 1 tab PO Q6H PRN pain 3 days #12 01/15/24 Unknown Rx mg tablet (Percocet) tabs potassium chloride 20 mEq See Rx Instructions .Route 0 08/05/24 Unknown Rx tablet,extended release(part/cryst) .COMPLEX #60 TABLE TS duloxetine 60 mg capsule,delayed 60 mg PO DAILY Unknown History release ergocalciferol (vitamin D2) 1,250 1,250 mcg PO QWEEK 1 01/10/24 Unknown History mcg (50,000 unit) capsule (Vitamin D2) ferrous sulfate 325 mg (65 mg 325 mg PO DAILY 11/09/24 Unknown History iron) tablet (FeroSul) lorazepam 1 mg tablet 1 mg PO TID 11/09/24 Unknown History cephalexin 500 mg capsule 500 mg PO TID #14 caps 11/12 Unknown Rx doxycycline monohydrate 100 mg 100 mg PO BID 5 days #1 0 caps 11/12/24 Unknown Rx capsule methocarbamol 750 mg tablet 1,500 mg PO TID muscle spa sm 08/16/25 Unknown History oxycodone 15 mg tablet 15 mg PO Q6H PRN PRN pain Unknown History pregabalin 150 mg capsule 150 mg PO TID 08/16/25 Unkno wn History semaglutide 2 mg/dose (8 mg/3 mL) mg subcut 08/16/25 U nknown History subcutaneous pen injector (Ozempic) Allergy/AdvReac Type Severity Reaction Status Date / Time cyclobenzaprine HCl (From Allergy Hives Verified 08/16/25 18:21 Flexeril) venlafaxine (From Effexor) AdvReac Severe hives Verified 08/16/25 18:21 Family History Father CVA (cerebral vascular accident) Heart disease Diabetes Mother Thyroid disorder Surgical History History of delivery H/O arthroscopic knee surgery History of cholecystectomy Social History (Updated 08/16/25 @ 21:[address] Olamide Mas MD) household members: none Smoking Status: Former smoker how long ago did patient quit smokin PPD smoker, quit x 1 year approximately. second hand exposure: Yes alcohol intake: never substance use type: does not use caffeine: Yes Type: carbonated beverages Number of servings: 1 and coffee Number of servings: 1 Physical Exam Narrative evaluate both feet. had a nail fall off on right and a wound develop on the leftgreat toe. had increasing swelling in legs and was admitted to hosp. culture identified MRSA. pt currently on IVABx Const alert, oriented x3 and no apparent distress General Appearance: cooperative Lymph Lymphatic Narrative: no popliteal lymphadenopathy Extremity normal capillary refill, no clubbing, cyanosis or edema and no calf tenderness Skin Skin Narrative: right great toe with absent nail. nail bed is clean and dry, no wounds. no redness, no swelling, no drainage, \\ left great toed with 1.5cm round neuropathic wound with undermining hkt edges, no tracking, no redness, no drainage, no swelling Wounds: wounds noted size Size: 1.5cm round left great toe, bed granulating well, drainage other none and no odor Lab / Micro Data 08/18/25 04:20 08/18/25 04:20 Labs: Laboratory Results - last 24 hr 08/17/25 20:15: Vancomycin Trough 20.3 H 08/17/25 21:49: POC Glucose 337 H 08/18/25 04:20: WBC 7.2, RBC 3.22 L, Hgb 9.2 L, Hct 29.6 L, MCV 91.9, MCH 28.6, MCHC 31.1 L, RDW Std Deviation 45.6 H, RDW Coeff of Darrion 13.5, Plt Count 251, MPV9.9, Immature Gran % (Auto) 0.400, Neut % (Auto) 64.0, Lymph % (Auto) 26.4, Defiance% (Auto) 5.0, Eos % (Auto) 3.2, Baso % (Auto) 1.0, Absolute Neuts (auto) 4.6, Absolute Lymphs (auto) 1.89, Nucleated RBC % 0, Sodium 139, Potassium 3.8, Chloride 93 L, Carbon Dioxide 35.0 H, Anion Gap 11, BUN 24 H, Creatinine 0.92, Estim Creat Clear Calc 127.12, Est GFR (MDRD) Non-Af 76, BUN/Creatinine Ratio 26.4 H, Glucose 288 H, Calcium 8.3, Phosphorus 3.1, Magnesium 1.7, Random Vancomycin 12.9 08/18/25 07:52: POC Glucose 279 H 08/18/25 11:54: POC Glucose 341 H 08/18/25 14:56: POC Glucose 456 H* 08/18/25 16:33: POC Glucose 460 H* Micro: Microbiology 08/16/25 18:45 Wound - Leg, Right Gram Stain - Final 08/16/25 18:45 Wound - Leg, Right Wound Culture - Preliminary Staphylococcus aureus GPC Poss Enterococcus sp Alpha Hemolytic Streptococcus 08/18/25 1758 <Electronically signed by Norman Mcclendon DPM> Cosigner Signature (if applicable): CC: Dr. Delmy Solorzano MD~ Signed [facility] Work Phone: 1(190) 159-885109-18-2025 Consult note [facility] Medical Records Department [address] [place] [address] Consultation 08/18/25 1748 MR#: [id number] Acct: [id number] Name: MACARIO WALLACE Rep #:[id number] : 1975 50 From: Norman Altman PCP: Dr. Delmy Solorzano MD Status:ADM IN Location: [place] [address] Assessment & Plan Assessment/Plan (1) Cellulitis of leg: QUALIFIERS: Laterality: left Qualified Code(s): L03.116 - Cellulitis of left lower limb PLAN: cont compressive dressings and antibiotics, follow up in office upon discharge (2) Chronic venous stasis dermatitis: PLAN: same as above (3) Cellulitis and abscess of right leg: PLAN: same as above (4) Sepsis: QUALIFIERS: Sepsis type: sepsis due to unspecified organism Sepsis acute organ dysfunction status: with acute organ dysfunction Severe sepsis acute organ dysfunction type: acute renal failure Acute renal failure type: with acute tubular necrosis Severe sepsis shock status: without septic shock Qualified Code(s): A41.9 - Sepsis, unspecified organism; R65.20 - Severe sepsis without septic shock; N17.0 - Acute kidney failure with tubular necrosis PLAN: same as above (5) Right leg pain: PLAN: same as above (6) Skin ulcer of left great toe, limited to breakdown of skin: PLAN: sharp debridement of wound with 15 blade today bedside, removed nonviable tissue limited to hkt tissue and margins of wound, no tracking. (7) Contusion of right great toe with damage to nail: QUALIFIERS: Encounter type: sequela Qualified Code(s): S90.211S -Contusion of right great toe with damage to nail, sequela PLAN: no tx necessary HPI Consult Data Date of Consult: 08/18/25 HPI Narrative Reason for Consultation: pt states she had increasing swelling in her legs and feet and was admitted HPI Narrative: MACARIO WALLACE, is a 50 F who presents [facility] Medical History (Updated 08/18/25 @ 17:[address] Norman Mcclendon, DPM) Cellulitis of leg MRSA cellulitis of left foot Arthritis Non-smoker CHF (congestive heart failure) History of diabetes mellitus Anemia Hypoxia Morbid obesity Venous stasis dermatitis of both lower extremities BMI 60.0-69.9, adult Noncompliance with CPAP treatment Acute on chronic respiratory failure with hypoxia and hypercapnia Perianal abscess Type 2 diabetes mellitus with hyperglycemia Contusion of knee, right Chronic diastolic (congestive) heart failure Depression Diabetes GERD (gastroesophageal reflux disease) BiPAP (biphasic positive airway pressure) dependence Sleep apnea On home oxygen therapy Smoker COPD (chronic obstructive pulmonary disease) Hypertension Congestive heart failure KERRY (acute kidney injury) Chronic respiratory failure with hypoxia Opiate overdose History of left heart catheterization (LHC) (~01/05/19) Type 2 diabetes mellitus Old myocardial infarction Essential hypertension Restrictive lung disease secondary to obesity Dyspnea on exertion Pulmonary embolism Hidradenitis Non-healing open wound of left groin Open wound of vulva with complication Necrotizing soft tissue infection Abscess of vulva Soft tissue abscess of inguinal region Respiratory failure with hypoxia Abscess Hyperglycemia due to type 2 diabetes mellitus NSTEMI (non-ST elevated myocardial infarction) Tobacco abuse Hyperlipidemia Morbid obesity History of MRSA infection Anxiety 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 Home Medications ?Medication ?Instructions ?Recorded ?Last Taken ?Type multivit-iron 18 mg-folic acid 400 1 ea PO DAILY suppl ement 03/26/17 07/14/23 History mcg-calcium 500 mg-minerals tablet omeprazole 40 mg capsule,delayed 40 mg PO DAILY GERD 0 12/15/18 07/14/23 History release loratadine 10 mg tablet 10 mg PO DAILY PRN Allergies 03/01/20 07/14/23 History apixaban 5 mg tablet 5 mg PO BID blood thinner 07/14/23 History diltiazem HCl 120 mg 120 mg PO DAILY heart rate 0 08/20/20 07/14/23 History capsule,extended release 24 hr lisinopril 10 mg tablet 10 mg PO DAILY blood pressur e 03/26/21 07/14/23 History metformin 500 mg tablet,extended 1,000 mg PO DAILY richard betes 03/26/21 07/14/23 History release 24 hr metoprolol succinate 25 mg 25 mg PO DAILY blood pressu re 03/26/21 07/14/23 History tablet,extended release 24 hr atorvastatin 80 mg tablet 80 mg PO QHS cholesterol 09/2107/14/23 History furosemide 40 mg tablet 80 mg PO DAILY diuretic 09/0107/14/23 History albuterol sulfate 2.5 mg/3 mL 2.5 mg inhalation Q4H GA N SOB 12/09/22 07/10/23 History (0.083 %) solution for nebulization fenofibrate nanocrystallized 145 145 mg PO DAILY MACIEL STEROL 12/09/22 07/14/23 History mg tablet insulin glargine U-300 conc 300 104 unit subcut BID di abetes 07/14/23 07/13/23 History unit/mL (3 mL) subcutaneous pen (Toujeo Max U-300 SoloStar) semaglutide 1 mg/dose (4 mg/3 mL) 1 mg subcut .1XW richard betes 07/14/23 07/13/23 History subcutaneous pen injector (Ozempic) metolazone 2.5 mg tablet 2.5 mg PO .every /thurs #8 tabs 07/15/23 Unknown Rx oxycodone-acetaminophen 5 mg-325 1 tab PO Q6H PRN pain 3 days #12 01/15/24 Unknown Rx mg tablet (Percocet) tabs potassium chloride 20 mEq See Rx Instructions .Route 0 08/05/24 Unknown Rx tablet,extended release(part/cryst) .COMPLEX #60 TABLE TS duloxetine 60 mg capsule,delayed 60 mg PO DAILY Unknown History release ergocalciferol (vitamin D2) 1,250 1,250 mcg PO QWEEK 1 01/10/24 Unknown History mcg (50,000 unit) capsule (Vitamin D2) ferrous sulfate 325 mg (65 mg 325 mg PO DAILY 11/09/24 Unknown History iron) tablet (FeroSul) lorazepam 1 mg tablet 1 mg PO TID 11/09/24 Unknown History cephalexin 500 mg capsule 500 mg PO TID #14 caps 11/12 Unknown Rx doxycycline monohydrate 100 mg 100 mg PO BID 5 days #1 0 caps 11/12/24 Unknown Rx capsule methocarbamol 750 mg tablet 1,500 mg PO TID muscle spa sm 08/16/25 Unknown History oxycodone 15 mg tablet 15 mg PO Q6H PRN PRN pain Unknown History pregabalin 150 mg capsule 150 mg PO TID 08/16/25 Unkno wn History semaglutide 2 mg/dose (8 mg/3 mL) mg subcut 08/16/25 U nknown History subcutaneous pen injector (Ozempic) Allergy/AdvReac Type Severity Reaction Status Date / Time cyclobenzaprine HCl (From Allergy Hives Verified 08/16/25 18:21 Flexeril) venlafaxine (From Effexor) AdvReac Severe hives Verified 08/16/25 18:21 Family History Father CVA (cerebral vascular accident) Heart disease Diabetes Mother Thyroid disorder Surgical History History of delivery H/O arthroscopic knee surgery History of cholecystectomy Social History (Updated 08/16/25 @ 21:[address] Olamide Mas MD) household members: none Smoking Status: Former smoker how long ago did patient quit smokin PPD smoker, quit x 1 year approximately. second hand exposure: Yes alcohol intake: never substance use type: does not use caffeine: Yes Type: carbonated beverages Number of servings: 1 and coffee Number of servings: 1 Physical Exam Narrative evaluate both feet. had a nail fall off on right and a wound develop on the leftgreat toe. had increasing swelling in legs and was admitted to hosp. culture identified MRSA. pt currently on IVABx Const alert, oriented x3 and no apparent distress General Appearance: cooperative Lymph Lymphatic Narrative: no popliteal lymphadenopathy Extremity normal capillary refill, no clubbing, cyanosis or edema and no calf tenderness Skin Skin Narrative: right great toe with absent nail. nail bed is clean and dry, no wounds. no redness, no swelling, nodrainage, \\ left great toed with 1.5cm round neuropathic wound with undermining hkt edges, no tracking, no redness, no drainage, no swelling Wounds: wounds noted size Size: 1.5cm round left great toe, bed granulating well, drainage other none and no odor Lab / Micro Data 08/18/25 04:20 08/18/25 04:20 Labs: Laboratory Results - last 24 hr 08/17/25 20:15: Vancomycin Trough 20.3 H 08/17/25 21:49: POC Glucose 337 H 08/18/25 04:20: WBC 7.2, RBC 3.22 L, Hgb 9.2 L, Hct 29.6 L, MCV 91.9, MCH 28.6, MCHC 31.1 L, RDW Std Deviation 45.6 H, RDW Coeff of Darrion 13.5, Plt Count 251, MPV9.9, Immature Gran % (Auto) 0.400, Neut% (Auto) 64.0, Lymph % (Auto) 26.4, Defiance% (Auto) 5.0, Eos % (Auto) 3.2, Baso % (Auto) 1.0, AbsoluteNeuts (auto) 4.6, Absolute Lymphs (auto) 1.89, Nucleated RBC % 0, Sodium 139, Potassium 3.8, Chloride 93 L, Carbon Dioxide 35.0 H, Anion Gap 11, BUN 24 H, Creatinine 0.92, Estim Creat Clear Calc 127.12, Est GFR (MDRD) Non-Af 76, BUN/Creatinine Ratio 26.4 H, Glucose 288 H, Calcium 8.3, Phosphorus 3.1, Magnesium 1.7, Random Vancomycin 12.9 08/18/25 07:52: POC Glucose 279 H 08/18/25 11:54: POC Glucose 341 H 08/18/25 14:56: POC Glucose 456 H* 08/18/25 16:33: POC Glucose 460 H* Micro: Microbiology 08/16/25 18:45 Wound - Leg, Right Gram Stain - Final 08/16/25 18:45 Wound - Leg, Right Wound Culture - Preliminary Staphylococcus aureus GPC Poss Enterococcus sp Alpha Hemolytic Streptococcus 08/18/25 1758 Cosigner Signature (if applicable): CC: Dr. Delmy Solorzano MD~ Signed [facility]09-18-2025 [facility] Medical Records Department [address] [place] [address] Consultation 08/18/25 1748 MR#: [id number] Acct: [id number] Name: MACARIO WALLACE Rep #: [id number] : 1975 50 From: Norman Mcclendon DPM PCP: Dr. Delmy Solorzano MD Status:ADM IN Location: [place] [address] Assessment Plan Assessment/Plan (1) Cellulitis of leg: QUALIFIERS: Laterality: left Qualified Code(s): L03.116 - Cellulitis of left lower limb PLAN: cont compressive dressings and antibiotics, follow up in office upon discharge (2) Chronic venous stasis dermatitis: PLAN: same as above (3) Cellulitis and abscess of right leg: PLAN: same as above (4) Sepsis: QUALIFIERS: Sepsis type: sepsis due to unspecified organism Sepsis acute organ dysfunction status: with acute organ dysfunction Severe sepsis acute organ dysfunction type: acute renal failure Acute renal failure type: with acute tubular necrosis Severe sepsis shock status: w ithout septic shock Qualified Code(s): A41.9 - Sepsis, unspecified organism; R65.20 - Severe sepsis without septic shock; N17.0 - Acute kidney failure with tubular necrosis PLAN: same as above (5) Right leg pain: PLAN: same as above (6) Skin ulcer of left great toe, limited to breakdown of skin: PLAN: sharp debridement of wound with 15 blade today bedside, removed nonviable tissue limited to hkt tissue and margins of wound, no tracking. (7) Contusion of right great toe with damage to nail: QUALIFIERS: Encounter type: sequela Qualified Code(s): S90.211S - Contusion of right great toe with damage to nail, sequela PLAN: no tx necessary HPI Consult Data Date of Consult: 08/18/25 HPI Narrative Reason for Consultation: pt states she had increasing swelling in her legs and feet and was admitted HPI Narrative: MACARIO WALLACE, is a 50 F who presents [facility] Medical History (Updated 08/18/25 @ 17:[address] Norman Mcclendon, DPM) Cellulitis of leg MRSA cellulitis of left foot Arthritis Non-smoker CHF (congestive heart failure) History of diabetes mellitus Anemia Hypoxia Morbid obesity Venous stasis dermatitis of both lower extremities BMI 60.0-69.9, adult Noncompliance with CPAP treatment Acute on chronic respiratory failure with hypoxia and hypercapnia Perianal abscess Type 2 diabetes mellitus with hyperglycemia Contusion of knee, right Chronic diastolic (congestive) heart failure Depression Diabetes GERD (gastroesophageal reflux disease) BiPAP (biphasic positive airway pressure) dependence Sleep apnea On home oxygen therapy Smoker COPD (chronic obstructive pulmonary disease) Hypertension Congestive heart failure KERRY (acute kidney injury) Chronic respiratory failure with hypoxia Opiate overdose History of left heart catheterization (LHC) ( 01/05/19) Type 2 diabetes mellitus Old myocardial infarction Essential hypertension Restrictive lung disease secondary to obesity Dyspnea on exertion Pulmonary embolism Hidradenitis Non-healing open wound of left groin Open wound of vulva with complication Necrotizing soft tissue infection Abscess of vulva Soft tissue abscess of inguinal region Respiratory failure with hypoxia Abscess Hyperglycemia due to type 2 diabetes mellitus NSTEMI (non-ST elevated myocardial infarction) Tobacco abuse Hyperlipidemia Morbid obesity History of MRSA infection Anxiety 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 Home Medications ???Medication ???Instructions ???Recorded ???Last Taken ???Type multivit-iron 18 mg-folic acid 400 1 ea PO DAILY supplement 7 07/14/23 History mcg-calcium 500 mg-minerals tablet omeprazole 40 mg capsule,delayed 40 mg PO DAILY GERD 12/15/1807/14 History release loratadine 10 mg tablet 10 mg PO DAILY PRN Allergies 03/0107/14/23 History apixaban 5 mg tablet 5 mg PO BID blood thinner 08/20/20 07/14/23 History diltiazem HCl 120 mg 120 mg PO DAILY heart rate 0 07/14/23 History capsule,extended release 24 hr lisinopril 10 mg tablet 10 mg PO DAILY blood pressure 03/0207/14/23 History metformin 500 mg tablet,extended 1,000 mg PO DAILY diabetes 1 07/14/23 History release 24 hr metoprolol succinate 25 mg 25 mg PO DAILY blood pressure 03/0207/14/23 History tablet,extended release 24 hr atorvastatin 80 mg tablet 80 mg PO QHS cholesterol 02/07/22 07/14/23 History furosemide 40 mg tablet 80 mg PO DAILY diuretic 09/22/22 0 07/14/23 History albuterol sulfate 2.5 mg/3 mL 2.5 mg inhalation Q4H PRN SOB 08/2307/10/23 History (0.083 %) solution for nebulization fenofibrate nanocrystallized 145 145 mg PO DAILY CHOLESTEROL 07/14/23 History mg tablet insulin glargine U-300 conc 300 104 unit subcut BID diabetes 07/1407/13/23 History unit/mL (3 mL) subcutaneous pen (Toujeo Max U-300 SoloStar) semag (more content not included)...[facility]09-18-2025 Progress note Author Jersey Pradhan [facility] Note Date/Time August 18, 2025 9:19am [facility] Medical Records Department [address] [place] [address] Progress Note - Hospitalist 08/18/25 0738 MR#: [id number] Acct: [id number] Name: MACARIO WALLACE Rep #:[id number] : 1975 50 From: Jersey Pradhan MD PCP: Dr. Delmy Solorzano MD Status:ADM IN Location: [place] [id number] Reason for Visit Chief Complaint: Worsening LE edema, orthopnea, dyspnea, RLE stasis blisters with drainage. Subjective Subjective Patient seen. Awaiting evaluation by podiatry.. Patient wound cultures so far positive for Staph aureus as well as possible Enterococcus species awaiting identification and sensitivity Objective Data Objective Data Vital Signs: Vital Signs Temp Pulse Resp BP Pulse Ox O2 Del Method O2 Flow Rate 97.9 F 77 18 102/83 H 95 Nasal Cannula 6 08/18/25 05:08/18/25 05:08/18/25 05:08/18/25 05:08/18/25 05:08/18/25 05:08/18/25 05:31 FiO2 30 08/18/25 03:40 Oxygen Flow Rate (L/min) 6 Oxygen Delivery Method Nasal Cannula Weight: 185 kg Body Mass Index (BMI) 67.9 Intake & Output: Intake and Output for Last 24 Hours 08/16/25 08/17/25 08/18/25 23:59 23:59 23:59 Intake Total 77.5 / 77.5 2754 / 3114 1095 / 1095 Output Total 1100 / 1650 550 / 550 Balance 77.5 / 77.5 1654 / 1464 545 / 545 Lab / Micro Data 08/18/25 04:20 08/18/25 04:20 Labs: Laboratory Results - last 24 hr 08/17/25 11:54: POC Glucose 301 H 08/17/25 16:10: POC Glucose 383 H 08/17/25 20:15: Vancomycin Trough 20.3 H 08/17/25 21:49: POC Glucose 337 H 08/18/25 04:20: WBC 7.2, RBC 3.22 L, Hgb 9.2 L, Hct 29.6 L, MCV 91.9, MCH 28.6, MCHC 31.1 L, RDW Std Deviation 45.6 H, RDW Coeff of Darrion 13.5, Plt Count 251, MPV9.9, Immature Gran % (Auto) 0.400, Neut % (Auto) 64.0, Lymph % (Auto) 26.4, Defiance% (Auto) 5.0, Eos % (Auto) 3.2, Baso % (Auto) 1.0, Absolute Neuts (auto) 4.6, Absolute Lymphs (auto) 1.89, Nucleated RBC % 0, Sodium 139, Potassium 3.8, Chloride 93 L, Carbon Dioxide 35.0 H, Anion Gap 11, BUN 24 H, Creatinine 0.92, Estim Creat Clear Calc 127.12, Est GFR (MDRD) Non-Af 76, BUN/Creatinine Ratio 26.4 H, Glucose 288 H, Calcium 8.3, Phosphorus 3.1, Magnesium 1.7, Random Vancomycin 12.9 Micro: Microbiology 08/16/25 18:45 Wound - Leg, Right Gram Stain - Final 08/16/25 18:45 Wound - Right Foot Skin and Soft Tissue MRSA/MSSA (PCR - Final Meth. resistant Staph. aureus Radiography Diagnostic Testing: Radiology Impression Foot X-Ray 08/17/25 10:22 IMPRESSION: Calcaneal spurs. Diffuse soft tissue swelling more prominent overlying the great toe. Reading Location: [place] [address] Physical Exam Narrative GENERAL: dyspneic at rest HEENT: Atraumatic; moist oral mucosa EYES; Anicteric, Normal Conjunctiva NECK; supple, normal thyroid, no distended JVD. RESPIRATORY: Diminished to auscultation bilaterally, CARDIOVASCULAR: Regular S1 S2, no audible murmurs GI: soft, non-tender, normoactive bowel sounds, : No Renal angle tenderness; EXTREMITIES: Erythema involving the right lower extremity, dry ulceration of the base of the plantar surface of the left big toe MUSCULOSKELETAL: No Joint Tenderness; NEURO: Awake; no lateralizing signs. SKIN: Bilateral stasis dermatitis PSYCH; flat affect Assessment & Plan Assessment/Plan (1) Cellulitis of leg: QUALIFIERS: Laterality: left Qualified Code(s): L03.116 - Cellulitis of left lower limb PLAN: Plan Patient is a 50-year-old lady with multiple comorbidities who presented with swelling involving both lower extremities with an area of erythema on the right. Admitted to monitored bed for subsequent management 1. Right lower extremity cellulitis ? In the setting of extensive stasis dermatitis. Patient admitted to a monitored bed antibiotic started per protocol with Vanco and Unasyn consult placed wound care nurse ? 08/18/2025; patient wound cultures so far positive for Staph aureus as well as possible Enterococcus. Remains on broad-spectrum antibiotic therapy 2. Diabetic foot ulceration ulceration at the base of the left big toe ? Patient is on antibiotic as described above ordered plain x-rays of the left foot consultation placed to podiatry ? 08/18/2025; awaiting podiatry 3. Acute on chronic congestive heart failure with preserved ejection fraction ? Patient most recent echo from 11/12/2024 demonstrated EF of 55%. Patient has been placed on a monitored bed treatment initiated with low-sodium diet, fluid restriction, strict input and output, daily weight as well as furosemide 4. Diabetes mellitus type 2 with complications including peripheral neuropathy ? Held patient oral agents did continue with her home insulin regimen and subsequently placed on Accu-Cheks ACHS with sliding scale coverage 5.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 ? Consistent use of PAP therapy encouraged 6. Hypertension ? Blood pressure controlled, home medications continued with dose adjustment as needed 7. Chronic hypoxic and hypercapnic respiratory failure ? Patient is on baseline oxygen 4 L at rest 8. Depression with anxiety ? Patient is on duloxetine 9. GERD ? On PPI 10. Subclinical hypothyroidism (new diagnosis) ? Patient started on levothyroxine 25 mcg daily 11. Dyslipidemia ?Patient is on statin therapy, continued at home dose 12. Previous history of VTE ? Patient is on systemic anticoagulation with apixaban 13. Anemia ? Secondary to chronic disorder monitoring H&H and transfuse if patient becomes symptomatic or hemoglobin falls below 7 14. Class III obesity with BMI of 67.4 ? Complicating care; Weight loss advised. Patient is on semaglutide as outpatient 15. DVT prophylaxis ? Patient is on Time spent in the patient's overall evaluation,decision-making process, review of diagnostic data, adjustment of management, discussion with other providers, nursing nursing and ancillary staff involved in patient's care documentation, 40 Minutes Charges/Coding Visit Charges Inpatient E&M: 54143 Subs Hosp L2 08/18/25 0919 <Electronically signed by Jersey Pradhan MD> Cosigner Signature (if applicable): CC: ~ Signed [facility] Work Phone: 1(961) 308-700409-18-2025 Progress note [facility] Medical Records Department [address] [address] Progress Note - Hospitalist 08/18/25 0738 MR#: [id number] Acct: [id number] Name: MACARIO WALLACE Rep #:[id number] : 1975 50 From: Jersey Pradhan MD PCP: Dr. Delmy Solorzano MD Status:ADM IN Location: [place] [address] Reason for Visit Chief Complaint: Worsening LE edema, orthopnea, dyspnea, RLE stasis blisters with drainage. Subjective Subjective Patient seen. Awaiting evaluation by podiatry.. Patient wound cultures so far positive for Staph aureus as well as possible Enterococcus species awaiting identification and sensitivity Objective Data Objective Data Vital Signs: Vital Signs Temp Pulse Resp BP Pulse Ox O2 Del Method O2 Flow Rate 97.9 F 77 18 102/83 H 95 Nasal Cannula 6 08/18/25 05:08/18/25 05:08/18/25 05:31 08/18/25 05:31 08/18/25 05:31 08/18/25 05:31 08/18/25 05:31 FiO2 30 08/18/25 03:40 Oxygen Flow Rate (L/min) 6 Oxygen Delivery Method Nasal Cannula Weight: 185 kg Body Mass Index (BMI) 67.9 Intake & Output: Intake and Output for Last 24 Hours 08/16/25 08/17/25 08/18/25 23:59 23:59 23:59 Intake Total 77.5 / 77.5 2754 / 3114 1095 / 1095 Output Total 1100 / 1650 550 / 550 Balance 77.5 / 77.5 1654 / 1464 545 / 545 Lab / Micro Data 08/18/25 04:20 08/18/25 04:20 Labs: Laboratory Results - last 24 hr 08/17/25 11:54: POC Glucose 301 H 08/17/25 16:10: POC Glucose 383 H 08/17/25 20:15: Vancomycin Trough 20.3 H 08/17/25 21:49: POC Glucose 337 H 08/18/25 04:20: WBC 7.2, RBC 3.22 L, Hgb 9.2 L, Hct 29.6 L, MCV 91.9, MCH 28.6, MCHC 31.1 L, RDW Std Deviation 45.6 H, RDW Coeff of Darrion 13.5, Plt Count 251, MPV9.9, Immature Gran % (Auto) 0.400, Neut% (Auto) 64.0, Lymph % (Auto) 26.4, Defiance% (Auto) 5.0, Eos % (Auto) 3.2, Baso % (Auto) 1.0, AbsoluteNeuts (auto) 4.6, Absolute Lymphs (auto) 1.89, Nucleated RBC % 0, Sodium 139, Potassium 3.8, Chloride 93 L, Carbon Dioxide 35.0 H, Anion Gap 11, BUN 24 H, Creatinine 0.92, Estim Creat Clear Calc 127.12, Est GFR (MDRD) Non-Af 76, BUN/Creatinine Ratio 26.4 H, Glucose 288 H, Calcium 8.3, Phosphorus 3.1, Magnesium 1.7, Random Vancomycin 12.9 Micro: Microbiology 08/16/25 18:45 Wound - Leg, Right Gram Stain - Final 08/16/25 18:45 Wound - Right Foot Skin and Soft Tissue MRSA/MSSA (PCR - Final Meth. resistant Staph. aureus Radiography Diagnostic Testing: Radiology Impression Foot X-Ray 08/17/25 10:22 IMPRESSION: Calcaneal spurs. Diffuse soft tissue swelling more prominent overlying the great toe. Reading Location: [facility]- Physical Exam Narrative GENERAL: dyspneic at rest HEENT: Atraumatic; moist oral mucosa EYES; Anicteric, Normal Conjunctiva NECK; supple, normal thyroid, no distended JVD. RESPIRATORY: Diminished to auscultation bilaterally, CARDIOVASCULAR: Regular S1 S2, no audible murmurs GI: soft, non-tender, normoactive bowel sounds, : No Renal angle tenderness; EXTREMITIES: Erythema involving the right lower extremity, dry ulceration of the base of the plantar surface of the left big toe MUSCULOSKELETAL: No Joint Tenderness; NEURO: Awake; no lateralizing signs. SKIN: Bilateral stasis dermatitis PSYCH; flat affect Assessment & Plan Assessment/Plan (1) Cellulitis of leg: QUALIFIERS: Laterality: left Qualified Code(s): L03.116 - Cellulitis of left lower limb PLAN: Plan Patient is a 50-year-old lady with multiple comorbidities who presented with swelling involving both lower extremities with an area of erythema on the right. Admitted to monitored bed for subsequent management 1. Right lower extremity cellulitis ? In the setting of extensive stasis dermatitis. Patient admitted to a monitored bed antibiotic started per protocol with Vanco and Unasyn consult placed wound care nurse ? 08/18/2025; patient wound cultures so far positive for Staph aureus as well as possible Enterococcus. Remains on broad-spectrum antibiotic therapy 2. Diabetic foot ulceration ulceration at the base of the left big toe ? Patient is on antibiotic as described above ordered plain x-rays of the left foot consultation placed to podiatry ? 08/18/2025; awaiting podiatry 3. Acute on chronic congestive heart failure with preserved ejection fraction ? Patient most recent echo from 11/12/2024 demonstrated EF of 55%. Patient has been placed on a monitored bed treatment initiated with low-sodium diet, fluid restriction, strict input and output, daily weight as well as furosemide 4. Diabetes mellitus type 2 with complications including peripheral neuropathy ? Held patient oral agents did continue with her home insulin regimen and subsequently placed on Accu-Cheks ACHS with sliding scale coverage 5.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 ? Consistent use of PAP therapy encouraged 6. Hypertension ? Blood pressure controlled, home medications continued with dose adjustment as needed 7. Chronic hypoxic and hypercapnic respiratory failure ? Patient is on baseline oxygen 4 L at rest 8. Depression with anxiety ? Patient is on duloxetine 9. GERD ? On PPI 10. Subclinical hypothyroidism (new diagnosis) ? Patient started on levothyroxine 25 mcg daily 11. Dyslipidemia ?Patient is on statin therapy, continued at home dose 12. Previous history of VTE ? Patient is on systemic anticoagulation with apixaban 13. Anemia ? Secondary to chronic disorder monitoring H&H and transfuse if patient becomes symptomatic or hemoglobin falls below 7 14. Class III obesity with BMI of 67.4 ? Complicating care; Weight loss advised. Patient is on semaglutide as outpatient 15. DVT prophylaxis ? Patient is on Time spent in the patient's overall evaluation,decision-making process, review of diagnostic data, adjustment of management, discussion with other providers, nursing nursing and ancillary staff involved in patient's care documentation, 40 Minutes Charges/Coding Visit Charges Inpatient E&M: 72085 Subs Hosp L2 08/18/25 0919 Cosigner Signature (if applicable): CC: ~ Signed [facility]09-18-2025 Consult note Author Ryan Avina [facility] Note Date/Time August 18, 2025 6:17am [facility] Medical Records Department [address] [place] [address] Pharmacokinetic/Renal -Consult 09/615 MR#: [id number] Acct: [id number] Name: MACARIO WALLACE Rep #:[id number] : 1975 50 From: Ryan Hernandes od PCP: Dr. Delmy Solorzano MD Status:ADM IN Y Location: [place] [address] Consult Antibiotic Management Pharmacy has been consulted to manage selected antibiotic: Vancomycin Type of Intervention Type of Consult: Follow-up Labs Labs: Sodium 139 mmol/L (133-145) 08/18/25 04:20 Potassium 3.8 mmol/L (3.3-5.1) 08/18/25 04:20 Chloride 93 mmol/L (98-108) L 08/18/25 04:20 Carbon Dioxide 35.0 mmol/L (21.0-32.0) H 08/18/25 04:20 Anion Gap 11 (5-15) 08/18/25 04:20 BUN 24 mg/dL (4-19) H 08/18/25 04:20 Creatinine 0.92 mg/dL (0.70-1.20) 08/18/25 04:20 Est GFR (MDRD) Non-Af 76 (>60) 08/18/25 04:20 BUN/Creatinine Ratio 26.4 RATIO (10-20) H 08/18/25 04:20 Glucose 288 mg/dL (70-99) H 08/18/25 04:20 Vancomycin Trough 20.3 ug/mL (5.0-15.0) H 08/17/25 20:15 Random Vancomycin 12.9 ug/mL (0.0-15.0) 08/18/25 04:20 Microbiology Microbiology: Microbiology 08/16/25 18:45 Wound - Leg, Right Gram Stain - Final 08/16/25 18:45 Wound - Right Foot Skin and Soft Tissue MRSA/MSSA (PCR - Final Meth. resistant Staph. aureus Goal Trough Goal Trough: 15-20 mcg/mL Pharmacy Plan for Drug Dosing Pharmacy Plan for Drug Dosing: Pharmacy Service will continue to monitor and adjust dosing as required. RANDOM LEVEL 12.9. START 1250MG Q8H AND DRAW TROUGH PRIOR TO 4TH DOSE Follow-Up Labs Follow-Up Labs: Trough: Vancomycin Date/Time Labs Ordered Labs to be done on [date and time ordered]: 08/19 @ 0500 08/18/25616 <Electronically signed by Ryan toledo> Date _ Ryan Avina Cosigner Signature (if applicable): Date CC: ~ Signed [facility] Work Phone: 1(249) 214-456409-18-2025 Consult note [facility] Medical Records Department [address] [place] [address] Pharmacokinetic/Renal -Consult 08/18/25615 MR#: [id number] Acct: [id number] Name: MACARIO WALLACE Rep #:[id number] : 1975 50 From: Ryan Hernandes od PCP: Dr. Delmy Solorzano MD Status:ADM IN Location: [place] [address] Consult Antibiotic Management Pharmacy has been consulted to manage selected antibiotic: Vancomycin Type of Intervention Type of Consult: Follow-up Labs Labs: Sodium 139 mmol/L (133-145) 08/18/25 04:20 Potassium 3.8 mmol/L (3.3-5.1) 08/18/25 04:20 Chloride 93 mmol/L (98-108) L 08/18/25 04:20 Carbon Dioxide 35.0 mmol/L (21.0-32.0) H 08/18/25 04:20 Anion Gap 11 (5-15) 08/18/25 04:20 BUN 24 mg/dL (4-19) H 08/18/25 04:20 Creatinine 0.92 mg/dL (0.70-1.20) 08/18/25 04:20 Est GFR (MDRD) Non-Af 76 (>60) 08/18/25 04:20 BUN/Creatinine Ratio 26.4 RATIO (10-20) H 08/18/25 04:20 Glucose 288 mg/dL (70-99) H 08/18/25 04:20 Vancomycin Trough 20.3 ug/mL (5.0-15.0) H 08/17/25 20:15 Random Vancomycin 12.9 ug/mL (0.0-15.0) 08/18/25 04:20 Microbiology Microbiology: Microbiology 08/16/25 18:45 Wound - Leg, Right Gram Stain - Final 08/16/25 18:45 Wound - Right Foot Skin and Soft Tissue MRSA/MSSA (PCR - Final Meth. resistant Staph. aureus Goal Trough Goal Trough: 15-20 mcg/mL Pharmacy Plan for Drug Dosing Pharmacy Plan for Drug Dosing: Pharmacy Service will continue to monitor and adjust dosing as required. RANDOM LEVEL 12.9. START 1250MG Q8H AND DRAW TROUGH PRIOR TO 4TH DOSE Follow-Up Labs Follow-Up Labs: Trough: Vancomycin Date/Time Labs Ordered Labs to be done on [date and time ordered]: 08/19 @ 0500 08/18/25 0617 lood> Date _ Ryan Perez Signature (if applicable): Date CC: ~ Signed [facility]09-17-2025 Consult note Author Ryan Avina [facility] Note Date/Time August 17, 2025 9:32pm [facility] Medical Records Department [address] [place] [address] Pharmacokinetic/Renal -Consult 08/17/25 2131 MR#: [id number] Acct: [id number] Name: MACARIO WALLACE Rep #:[id number] : 1975 50 From: Ryan Hernandes od PCP: Dr. Delmy Solorzano MD Status:ADM IN Location: [place] [address] Consult Antibiotic Management Pharmacy has been consulted to manage selected antibiotic: Vancomycin Type of Intervention Type of Consult: Follow-up Labs Labs: Sodium 135 mmol/L (133-145) 08/17/25 03:34 Potassium 3.9 mmol/L (3.3-5.1) 08/17/25 03:34 Chloride 92 mmol/L (98-108) L 08/17/25 03:34 Carbon Dioxide 28.0 mmol/L (21.0-32.0) 08/17/25 03:34 Anion Gap 15 (5-15) 08/17/25 03:34 BUN 31 mg/dL (4-19) H 08/17/25 03:34 Creatinine 1.03 mg/dL (0.70-1.20) 08/17/25 03:34 Est GFR (MDRD) Non-Af 67 (>60) 08/17/25 03:34 BUN/Creatinine Ratio 29.9 RATIO (10-20) H 08/17/25 03:34 Glucose 383 mg/dL (70-99) H 08/17/25 03:34 Vancomycin Trough 20.3 ug/mL (5.0-15.0) H 08/17/25 20:15 Microbiology Microbiology: Microbiology 08/16/25 18:45 Wound - Leg, Right Gram Stain - Final 08/16/25 18:45 Wound - Right Foot Skin and Soft Tissue MRSA/MSSA (PCR - Final Meth. resistant Staph. aureus Goal Trough Goal Trough: 15-20 mcg/mL Pharmacy Plan for Drug Dosing Pharmacy Plan for Drug Dosing: Pharmacy Service will continue to monitor and adjust dosing as required. TROUGH 20.3 @ 8.5 HOURS. HOLD DOSE AND DRAW RANDOM LEVEL IN 8 HOURS Follow-Up Labs Follow-Up Labs: Trough: Vancomycin Date/Time Labs Ordered Labs to be done on [date and time ordered]: 08/18 @ 0400 08/17/25 2613 <Electronically signed by Ryan toledo> Date _ Ryan Avina Cosigner Signature (if applicable): Date CC: ~ Signed [facility] Work Phone: 1(806) 709-189909-17-2025 Consult note [facility] Medical Records Department [address] [place] [address] Pharmacokinetic/Renal -Consult 08/17/251 MR#: [id number] Acct: [id number] Name: MACARIO WALLACE Rep #:[id number] : 1975 50 From: Ryan Hernandes od PCP: Dr. Delmy Solorzano MD Status:ADM IN Y Location: [place] [address] Consult Antibiotic Management Pharmacy has been consulted to manage selected antibiotic: Vancomycin Type of Intervention Type of Consult: Follow-up Labs Labs: Sodium 135 mmol/L (133-145) 08/17/25 03:34 Potassium 3.9 mmol/L (3.3-5.1) 08/17/25 03:34 Chloride 92 mmol/L (98-108) L 08/17/25 03:34 Carbon Dioxide 28.0 mmol/L (21.0-32.0) 08/17/25 03:34 Anion Gap 15 (5-15) 08/17/25 03:34 BUN 31 mg/dL (4-19) H 08/17/25 03:34 Creatinine 1.03 mg/dL (0.70-1.20) 08/17/25 03:34 Est GFR (MDRD) Non-Af 67 (>60) 08/17/25 03:34 BUN/Creatinine Ratio 29.9 RATIO (10-20) H 08/17/25 03:34 Glucose 383 mg/dL (70-99) H 08/17/25 03:34 Vancomycin Trough 20.3 ug/mL (5.0-15.0) H 08/17/25 20:15 Microbiology Microbiology: Microbiology 08/16/25 18:45 Wound - Leg, Right Gram Stain - Final 08/16/25 18:45 Wound - Right Foot Skin and Soft Tissue MRSA/MSSA (PCR - Final Meth. resistant Staph. aureus Goal Trough Goal Trough: 15-20 mcg/mL Pharmacy Plan for Drug Dosing Pharmacy Plan for Drug Dosing: Pharmacy Service will continue to monitor and adjust dosing as required. TROUGH 20.3 @ 8.5 HOURS. HOLD DOSE AND DRAW RANDOM LEVEL IN 8 HOURS Follow-Up Labs Follow-Up Labs: Trough: Vancomycin Date/Time Labs Ordered Labs to be done on [date and time ordered]: 08/18 @ 0400 08/17/25 2132 lood> Date _ Ryan Becerriligner Signature (if applicable): Date CC: ~ Signed [facility]09-17-2025 Radiology Diagnostic study note [facility] Imaging Services [address] [facility] [place] [place], [place] [address] Foot 2 Views MR#: [id number] Acct: [id number] Name: MACARIO WALLACE Rep #: [id number] : 1975 F 50 From: Jatin Gan MD PCP: Dr. Delmy Solorzano MD Status: ADM IN Study:Foot 2 Views Date of Exam: 5 Exam# [id number] Ordering Dr: Steve Pradhan MD PROCEDURE: FOOT 2 VIEWS 08/17/2025 REASON FOR EXAM: DFU TECHNIQUE: Procedure Code: RADFO2 Modality: DX Procedure: FOOT 2 VIEWS Laterality: Left foot ulcer. This is worse overlying the great toe. COMPARISON: None FINDINGS: Bones: Calcaneal spurs. No fracture. Joints: Normal alignment. Soft tissues: Diffuse soft tissue swelling. Other: RAD/Foot 2 Views IMPRESSION: Calcaneal spurs. Diffuse soft tissue swelling more prominent overlying the great toe. [facility] CC: Dr. Delmy Solorzano MD; Dr. Jersey Pradhan MD ~ 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: Signed [facility]09-17-2025 Progress note Author Jersey Pradhan [facility] Note Date/Time August 17, 2025 8:22am [facility] Medical Records Department [address] [place] [address] Progress Note - Hospitalist 08/17/25 0659 MR#: [id number] Acct: [id number] Name: MACARIO WALLACE Rep #:[id number] : 1975 50 From: Jersey Pradhan MD PCP: Dr. Delmy Solorzano MD Status:ADM IN Location: [place] [address] Reason for Visit Chief Complaint: Worsening LE edema, orthopnea, dyspnea, RLE stasis blisters with drainage. Objective Data Objective Data Vital Signs: Vital Signs Temp Pulse Resp BP Pulse Ox O2 Del Method O2 Flow Rate 98.0 F 88 16 135/68 H 96 Nasal Cannula 4 08/16/25 23:10 08/16/25 23:10 08/17/25 00:47 08/16/25 23:10 08/17/25 00:47 08/17/25 00:35 08/17/25 00:35 FiO2 30 08/17/25 00:47 Oxygen Flow Rate (L/min) 4 Oxygen Delivery Method Nasal Cannula Weight: 183.7 kg Body Mass Index (BMI) 67.3 Intake & Output: Intake and Output for Last 24 Hours 08/15/25 08/16/25 08/17/25 23:59 23:59 23:59 Intake Total 77.5 / 77.5 744 / 744 Output Total 1100 / 1100 Balance 77.5 / 77.5 -356 / -356 Lab / Micro Data 08/17/25 03:34 08/17/25 03:34 Labs: Laboratory Results - last 24 hr 08/16/25 19:30: WBC 9.4, RBC 3.26 L, Hgb 9.2 L, Hct 29.6 L, MCV 90.8, MCH 28.2, MCHC 31.1 L, RDW Std Deviation 45.8 H, RDW Coeff of Darrion 13.7, Plt Count 254, MPV10.5, Immature Gran % (Auto) 0.600, Neut % (Auto) 72.2 H, Lymph % (Auto) 20.4, Defiance % (Auto) 4.1, Eos % (Auto) 2.0, Baso % (Auto) 0.7, Absolute Neuts (auto) 6.8, Absolute Lymphs (auto) 1.92, Nucleated RBC % 0, PT 14.3, INR 1.1, APTT 29.8, Sodium 134, Potassium 3.8, Chloride 90 L, Carbon Dioxide 30.0, Anion Gap 14, BUN 32 H, Creatinine 1.07, Estim Creat Clear Calc 110.03, Est GFR (MDRD) Non-Af 64, BUN/Creatinine Ratio 29.7 H, Glucose 525 H*, Lactic Acid 1.9, Calcium8.2, Magnesium 1.4 L, Total Bilirubin 0.23, AST 24, ALT 23, Alkaline [id number], Troponin T High Sens 37 H, NT pro BNP II 163, Total Protein 6.7, Albumin 3.5, Globulin 3.2, Albumin/Globulin Ratio 1.1 08/16/25 23:22: POC Glucose 395 H 08/16/25 23:35: Troponin T High Sens 37 H, Procalcitonin 0.13 H 08/17/25 01:05: POC Glucose 382 H 08/17/25 01:30: Troponin T Hi Sens 2 Hr 35 H 08/17/25 03:34: WBC 8.7, RBC 3.29 L, Hgb 9.3 L, Hct 30.2 L, MCV 91.8, MCH 28.3, MCHC 30.8 L, RDW Std Deviation 46.1 H, RDW Coeff of Darrion 13.7, Plt Count 221, MPV10.1, Immature Gran % (Auto) 0.500, Neut % (Auto) 69.6, Lymph % (Auto) 21.7, Defiance % (Auto) 4.7, Eos % (Auto) 2.5, Baso % (Auto) 1.0, Absolute Neuts (auto) 6.1, Absolute Lymphs (auto) 1.89, Sodium 135, Potassium 3.9, Chloride 92 L, Carbon Dioxide 28.0, Anion Gap 15, BUN 31 H, Creatinine 1.03, Estim Creat Clear Calc 113.55, Est GFR (MDRD) Non-Af 67, BUN/Creatinine Ratio 29.9 H, Glucose 383 H, Hemoglobin A1c 12.5 H, Calcium 8.1, Total Bilirubin 0.19, AST 19, ALT 20, Alkaline Phosphatase 76, Troponin T Hi Sens 4Hr 35 H, Total Protein 6.7, Albumin3.5, Globulin 3.2, Albumin/Globulin Ratio 1.1, Triglycerides 218 H, Cholesterol 146, LDL Cholesterol, Calc 74, VLDL Cholesterol 44 H, HDL Cholesterol 28 L, Cholesterol/HDL Ratio 5.14, TSH 6.510 H 08/17/25 06:11: POC Glucose 305 H Micro: Microbiology 08/16/25 18:45 Wound - Right Foot Skin and Soft Tissue MRSA/MSSA (PCR - Final Meth. resistant Staph. aureus Radiography Diagnostic Testing: Radiology Impression Chest X-Ray 08/16/25 19:05 IMPRESSION: Cardiomegaly with vascular congestion. No airspace consolidation or pleural effusions. Reading Location: [facility] Physical Exam Narrative GENERAL: dyspneic at rest HEENT: Atraumatic; moist oral mucosa EYES; Anicteric, Normal Conjunctiva NECK; supple, normal thyroid, no distended JVD. RESPIRATORY: Diminished to auscultation bilaterally, CARDIOVASCULAR: Regular S1 S2, no audible murmurs GI: soft, non-tender, normoactive bowel sounds, : No Renal angle tenderness; EXTREMITIES: Erythema involving the right lower extremity, dry ulceration of the base of the plantar surface of the left big toe MUSCULOSKELETAL: No Joint Tenderness; NEURO: Awake; no lateralizing signs. SKIN: Bilateral stasis dermatitis PSYCH; flat affect Assessment & Plan Assessment/Plan (1) Cellulitis of leg: QUALIFIERS: Laterality: left Qualified Code(s): L03.116 - Cellulitis of left lower limb PLAN: Plan Patient is a 50-year-old lady with multiple comorbidities who presented with swelling involving both lower extremities with an area of erythema on the right. Admitted to monitored bed for subsequent management 1. Right lower extremity cellulitis ? In the setting of extensive stasis dermatitis. Patient admitted to a monitored bed antibiotic started per protocol with Vanco and Unasyn consult placed wound care nurse 2. Diabetic foot ulceration ulceration at the base of the left big toe ? Patient is on antibiotic as described above ordered plain x-rays of the left foot consultation placed to podiatry 3. Acute on chronic congestive heart failure with preserved ejection fraction ? Patient most recent echo from 11/12/2024 demonstrated EF of 55%. Patient has been placed on a monitored bed treatment initiated with low-sodium diet, fluid restriction, strict input and output, daily weight as well as furosemide 4. Diabetes mellitus type 2 with complications including peripheral neuropathy ? Held patient oral agents did continue with her home insulin regimen and subsequently placed on Accu-Cheks ACHS with sliding scale coverage 5.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 ? Consistent use of PAP therapy encouraged 6. Hypertension ? Blood pressure controlled, home medications continued with dose adjustment as needed 7. Chronic hypoxic and hypercapnic respiratory failure ? Patient is on baseline oxygen 4 L at rest 8. Depression with anxiety ? Patient is on duloxetine 9. GERD ? On PPI 10. Subclinical hypothyroidism (new diagnosis) ? Patient started on levothyroxine 25 mcg daily 11. Dyslipidemia ?Patient is on statin therapy, continued at home dose 12. Previous history of VTE ? Patient is on systemic anticoagulation with apixaban 13. Anemia ? Secondary to chronic disorder monitoring H&H and transfuse if patient becomes symptomatic or hemoglobin falls below 7 14. Class III obesity with BMI of 67.4 ? Complicating care; Weight loss advised. Patient is on semaglutide as outpatient 15. DVT prophylaxis ? Patient is on Time spent in the patient's overall evaluation,decision-making process, review of diagnostic data, adjustment of management, discussion with other providers, nursing nursing and ancillary staff involved in patient's care documentation, 55 Minutes Charges/Coding Visit Charges Inpatient E&M: 23876 Subs Hosp L3 08/17/25 0822 <Electronically signed by Jersey Pradhan MD> Cosigner Signature (if applicable): CC: ~ Signed [facility] Work Phone: 1(803) 898-183009-17-2025 Progress note [facility] Medical Records Department [address] [place] [id number] Progress Note - Hospitalist 08/17/25 0659 MR#: [id number] Acct: [id number] Name: MACARIO WALLACE Rep #:[id number] : 1975 50 From: Jersey Pradhan MD PCP: Dr. Delmy Solorzano MD Status:ADM IN Location: [place] [address] Reason for Visit Chief Complaint: Worsening LE edema, orthopnea, dyspnea, RLE stasis blisters with drainage. Objective Data Objective Data Vital Signs: Vital Signs Temp Pulse Resp BP Pulse Ox O2 Del Method O2 Flow Rate 98.0 F 88 16 135/68 H 96 Nasal Cannula 4 08/16/25 23:10 08/16/25 23:10 08/17/25 00:47 08/16/25 23:10 08/17/25 00:47 08/17/25 00:35 08/17/25 00:35 FiO2 30 08/17/25 00:47 Oxygen Flow Rate (L/min) 4 Oxygen Delivery Method Nasal Cannula Weight: 183.7 kg Body Mass Index (BMI) 67.3 Intake & Output: Intake and Output for Last 24 Hours 08/15/25 08/16/25 08/17/25 23:59 23:59 23:59 Intake Total 77.5 / 77.5 744 / 744 Output Total 1100 / 1100 Balance 77.5 / 77.5 -356 / -356 Lab / Micro Data 08/17/25 03:34 08/17/25 03:34 Labs: Laboratory Results - last 24 hr 08/16/25 19:30: WBC 9.4, RBC 3.26 L, Hgb 9.2 L, Hct 29.6 L, MCV 90.8, MCH 28.2, MCHC 31.1 L, RDW Std Deviation 45.8 H, RDW Coeff of Darrion 13.7, Plt Count 254, MPV10.5, Immature Gran % (Auto) 0.600, Neut % (Auto) 72.2 H, Lymph % (Auto) 20.4, Defiance % (Auto) 4.1, Eos % (Auto) 2.0, Baso % (Auto) 0.7, Absolute Neuts (auto) 6.8, Absolute Lymphs (auto) 1.92, Nucleated RBC % 0, PT 14.3, INR 1.1, APTT 29.8, Sodium 134, Potassium 3.8, Chloride 90 L, Carbon Dioxide 30.0, Anion Gap 14, BUN 32 H, Creatinine 1.07, Estim Creat Clear Calc 110.03, Est GFR (MDRD) Non-Af 64, BUN/Creatinine Ratio 29.7 H, Glucose 525 H*, Lactic Acid 1.9, Calcium8.2, Magnesium 1.4 L, Total Bilirubin 0.23, AST 24, ALT 23, Alkaline Ph [id number], Troponin T High Sens 37 H, NT pro BNP II 163, Total Protein 6.7, Albumin 3.5, Globulin3.2, Albumin/Globulin Ratio 1.1 09/16/25 23:22: POC Glucose 395 H 08/16/25 23:35: Troponin T High Sens 37 H, Procalcitonin 0.13 H 08/17/25 01:05: POC Glucose 382 H 08/17/25 01:30: Troponin T Hi Sens 2 Hr 35 H 08/17/25 03:34: WBC 8.7, RBC 3.29 L, Hgb 9.3 L, Hct 30.2 L, MCV 91.8, MCH 28.3, MCHC 30.8 L, RDW Std Deviation 46.1 H, RDW Coeff of Darrion 13.7, Plt Count 221, MPV10.1, Immature Gran % (Auto) 0.500, Neut % (Auto) 69.6, Lymph % (Auto) 21.7, Defiance % (Auto) 4.7, Eos % (Auto) 2.5, Baso % (Auto) 1.0, Absolute Neuts (auto) 6.1, Absolute Lymphs (auto) 1.89, Sodium 135, Potassium 3.9, Chloride 92 L, Carbon Dioxide 28.0, Anion Gap 15, BUN 31 H, Creatinine 1.03, Estim Creat Clear Calc 113.55, Est GFR (MDRD) Non-Af 67, BUN/Creatinine Ratio 29.9 H, Glucose 383 H, Hemoglobin A1c 12.5 H, Calcium 8.1, Total Bilirubin 0.19, AST 19, ALT 20, Alkaline Phosphatase 76, Troponin T Hi Sens 4Hr 35 H, Total Protein 6.7, Albumin3.5, Globulin 3.2, Albumin/Globulin Ratio 1.1, Triglycerides 218 H, Cholesterol 146, LDL Cholesterol, Calc 74, VLDL Cholesterol 44 H, HDL Cholesterol 28 L, Cholesterol/HDL Ratio 5.14, TSH 6.510 H 08/17/25 06:11: POC Glucose 305 H Micro: Microbiology 08/16/25 18:45 Wound - Right Foot Skin and Soft Tissue MRSA/MSSA (PCR - Final Meth. resistant Staph. aureus Radiography Diagnostic Testing: Radiology Impression Chest X-Ray 08/16/25 19:05 IMPRESSION: Cardiomegaly with vascular congestion. No airspace consolidation or pleural effusions. Reading Location: [facility] Physical Exam Narrative GENERAL: dyspneic at rest HEENT: Atraumatic; moist oral mucosa EYES; Anicteric, Normal Conjunctiva NECK; supple, normal thyroid, no distended JVD. RESPIRATORY: Diminished to auscultation bilaterally, CARDIOVASCULAR: Regular S1 S2, no audible murmurs GI: soft, non-tender, normoactive bowel sounds, : No Renal angle tenderness; EXTREMITIES: Erythema involving the right lower extremity, dry ulceration of the base of the plantar surface of the left big toe MUSCULOSKELETAL: No Joint Tenderness; NEURO: Awake; no lateralizing signs. SKIN: Bilateral stasis dermatitis PSYCH; flat affect Assessment & Plan Assessment/Plan (1) Cellulitis of leg: QUALIFIERS: Laterality: left Qualified Code(s): L03.116 - Cellulitis of left lower limb PLAN: Plan Patient is a 50-year-old lady with multiple comorbidities who presented with swelling involving both lower extremities with an area of erythema on the right. Admitted to monitored bed for subsequent management 1. Right lower extremity cellulitis ? In the setting of extensive stasis dermatitis. Patient admitted to a monitored bed antibiotic started per protocol with Vanco and Unasyn consult placed wound care nurse 2. Diabetic foot ulceration ulceration at the base of the left big toe ? Patient is on antibiotic as described above ordered plain x-rays of the left foot consultation placed to podiatry 3. Acute on chronic congestive heart failure with preserved ejection fraction ? Patient most recent echo from 11/12/2024 demonstrated EF of 55%. Patient has been placed on a monitored bed treatment initiated with low-sodium diet, fluid restriction, strict input and output, daily weight as well as furosemide 4. Diabetes mellitus type 2 with complications including peripheral neuropathy ? Held patient oral agents did continue with her home insulin regimen and subsequently placed on Accu-Cheks ACHS with sliding scale coverage 5.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 ? Consistent use of PAP therapy encouraged 6. Hypertension ? Blood pressure controlled, home medications continued with dose adjustment as needed 7. Chronic hypoxic and hypercapnic respiratory failure ? Patient is on baseline oxygen 4 L at rest 8. Depression with anxiety ? Patient is on duloxetine 9. GERD ? On PPI 10. Subclinical hypothyroidism (new diagnosis) ? Patient started on levothyroxine 25 mcg daily 11. Dyslipidemia ?Patient is on statin therapy, continued at home dose 12. Previous history of VTE ? Patient is on systemic anticoagulation with apixaban 13. Anemia ? Secondary to chronic disorder monitoring H&H and transfuse if patient becomes symptomatic or hemoglobin falls below 7 14. Class III obesity with BMI of 67.4 ? Complicating care; Weight loss advised. Patient is on semaglutide as outpatient 15. DVT prophylaxis ? Patient is on Time spent in the patient's overall evaluation,decision-making process, review of diagnostic data, adjustment of management, discussion with other providers, nursing nursing and ancillary staff involved in patient's care documentation, 55 Minutes Charges/Coding Visit Charges Inpatient E&M: 77193 Subs Hosp L3 08/17/25 0822 Cosigner Signature (if applicable): CC: ~ Signed [facility]09-17-2025 Consult note Author Kaylene Trejo [facility] Note Date/Time August 16, 2025 11:30pm [facility] Medical Records Department [address] [place] [address] Pharmacokinetic/Renal -Consult 08/16/252316 MR#: [id number] Acct: [id number] Name: MACARIO WALLACE Rep #:[id number] : 1975 50 From: Kaylene Trejo PCP: Dr. Delmy Solorzano MD Status:ADM IN Y Location: [place] [address] Consult Antibiotic Management Pharmacy has been consulted to manage selected antibiotic: Vancomycin Type of Intervention Type of Consult: New start Suspected Infection Suspected Infection: Skin/Soft tissue Labs Labs: Sodium 134 mmol/L (133-145) 08/16/25 19:30 Potassium 3.8 mmol/L (3.3-5.1) 08/16/25 19:30 Chloride 90 mmol/L (98-108) L 08/16/25 19:30 Carbon Dioxide 30.0 mmol/L (21.0-32.0) 08/16/25 19:30 Anion Gap 14 (5-15) 08/16/25 19:30 BUN 32 mg/dL (4-19) H 08/16/25 19:30 Creatinine 1.07 mg/dL (0.70-1.20) 08/16/25 19:30 Est GFR (MDRD) Non-Af 64 (>60) 08/16/25 19:30 BUN/Creatinine Ratio 29.7 RATIO (10-20) H 08/16/25 19:30 Glucose 525 mg/dL (70-99) H* 08/16/25 19:30 Estimated Creatinine Clearance Estimated Creatinine Clearance: 110.03 Goal Trough Goal Trough: 15-20 mcg/mL Pharmacy Plan for Drug Dosing Pharmacy Plan for Drug Dosing: NEW START IV VANCOMYCIN Consulting Physician: Dr. Mas Indication: RLE Cellulitis Goal Trough: 15-20 SrCr: 1.07 CrCl: 110.03 Comments: Received 2000mg x1 dose in ED @ 20:48 08/16/25 Vancomycin Dose: 1500mg Q8H to start @ 05:00 08/17/25 Pending Level: 08/17/25 @ 20:30 prior to 4th dose Pharmacy Service will continue to monitor and adjust dosing as required. Follow-Up Labs Follow-Up Labs: Trough: Vancomycin (08/17/25 @ 20:30) 08/16/258 <Electronically signed by Kaylene Trejo> Date _ Kaylene Trejo 08/16/25 2330 <Electronically signed by Olamide andujar MD> Cosigner Signature (if applicable): Date Olamide Mas MD CC: ~ Signed [facility] Work Phone: 1(748) 943-997109-16-2025 History and physical note Author Olamide Mas [facility] Note Date/Time August 16, 2025 9:32pm [facility] Medical Records Department [address] [place] [address] H&P Exam - Hospitalist 08/16/256 MR#: [id number] Acct: [id number] Name: MACARIO WALLACE Rep #:[id number] : 1975 50 From: Olamide Mas MD PCP: Dr. Delmy Solorzano MD Status:ADM IN Location: [place] [id number] HPI - General General Date of Admission: 08/16/25 Date of Service: 08/16/25 Chief Complaint: Worsening LE edema, orthopnea, dyspnea, RLE stasis blisters with drainage. 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, uncertain, HFpEF, COPD w/ Chronic Hypoxic and Hypercapnic Respiratory Failure (4L NC), LOGAN on BIPAP, HTN, HLD, GERD, Anxiety and Depression, Former Tobacco use, Diabetes mellitus type II withchronic neuropathy, Hx VTE who presents to the [facility] ED on 08/16/2025 with history of increasing edema to the lower extremity, dyspnea worsewith exertion with drainage to the right lower extremity and redness with subjective fever and chills noting that the edema to the right has been greater with notable orthopnea concurrently with some admission that she has not been compliant intermittently with her PAP therapy prompting eventual ED evaluation. Workup in the ED included T98.1, heart rate 99, BP 156/71, respiratory rate 20, 96% on 5 L nasal cannula with patient most recently noted to be on 4 L nasal cannula 10/2024 with most recent repeat vitals T98.9 Oral, heart rate 91, BP 134/69, respiratory rate 14, 99% on 5 L nasal cannula, CBC with WC 9.4, hemoglobin 9.2, MCV 90.8, platelet 254 without marked shift, unremarkable coags,CMP with chloride 90, BUN/creatinine 32/1.07, GFR 64, glucose 525, lactic acid 1.9, anion gap 14, hepatic profile unremarkable, initial troponin 37, NT proBNP II 163, chest x-ray with cardiomegaly with vascular congestion, EKG with sinus rhythm with no acute evidence of ischemia, blood culture x 2 pending per ED. Inthe ED patient ministered Unasyn 3 g IV x 1, insulin U-500 15 units subcu x 1, vancomycin 2000 mg IV x 1, oxycodone 10 mg p.o. x 1. From review of records 11/12/2024 last weight of patient 387 pounds now upon current presentation up to408 pounds. [facility] Medical History (Updated 08/16/25 @ 21:[address] Olamide Mas MD) Cellulitis of leg MRSA cellulitis of left foot Arthritis Non-smoker CHF (congestive heart failure) History of diabetes mellitus Anemia Hypoxia Morbid obesity Venous stasis dermatitis of both lower extremities BMI 60.0-69.9, adult Noncompliance with CPAP treatment Acute on chronic respiratory failure with hypoxia and hypercapnia Perianal abscess Type 2 diabetes mellitus with hyperglycemia Contusion of knee, right Chronic diastolic (congestive) heart failure Depression Diabetes GERD (gastroesophageal reflux disease) BiPAP (biphasic positive airway pressure) dependence Sleep apnea On home oxygen therapy Smoker COPD (chronic obstructive pulmonary disease) Hypertension Congestive heart failure KERRY (acute kidney injury) Chronic respiratory failure with hypoxia Opiate overdose History of left heart catheterization (LHC) (~01/05/19) Type 2 diabetes mellitus Old myocardial infarction Essential hypertension Restrictive lung disease secondary to obesity Dyspnea on exertion Pulmonary embolism Hidradenitis Non-healing open wound of left groin Open wound of vulva with complication Necrotizing soft tissue infection Abscess of vulva Soft tissue abscess of inguinal region Respiratory failure with hypoxia Abscess Hyperglycemia due to type 2 diabetes mellitus NSTEMI (non-ST elevated myocardial infarction) Tobacco abuse Hyperlipidemia Morbid obesity History of MRSA infection Anxiety 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 Home Medications ?Medication ?Instructions ?Recorded ?Last Taken ?Type multivit-iron 18 mg-folic acid 400 1 ea PO DAILY suppl ement 03/26/17 07/14/23 History mcg-calcium 500 mg-minerals tablet omeprazole 40 mg capsule,delayed 40 mg PO DAILY GERD 0 12/15/18 07/14/23 History release loratadine 10 mg tablet 10 mg PO DAILY PRN Allergies 03/01/20 07/14/23 History apixaban 5 mg tablet 5 mg PO BID blood thinner 07/14/23 History diltiazem HCl 120 mg 120 mg PO DAILY heart rate 0 08/20/20 07/14/23 History capsule,extended release 24 hr lisinopril 10 mg tablet 10 mg PO DAILY blood pressur e 03/26/21 07/14/23 History metformin 500 mg tablet,extended 1,000 mg PO DAILY richard betes 03/26/21 07/14/23 History release 24 hr metoprolol succinate 25 mg 25 mg PO DAILY blood pressu re 03/26/21 07/14/23 History tablet,extended release 24 hr atorvastatin 80 mg tablet 80 mg PO QHS cholesterol 09/2107/14/23 History furosemide 40 mg tablet 80 mg PO DAILY diuretic 09/0107/14/23 History albuterol sulfate 2.5 mg/3 mL 2.5 mg inhalation Q4H GA N SOB 12/09/22 07/10/23 History (0.083 %) solution for nebulization fenofibrate nanocrystallized 145 145 mg PO DAILY MACIEL STEROL 12/09/22 07/14/23 History mg tablet insulin glargine U-300 conc 300 104 unit subcut BID di abetes 07/14/23 07/13/23 History unit/mL (3 mL) subcutaneous pen (Toujeo Max U-300 SoloStar) semaglutide 1 mg/dose (4 mg/3 mL) 1 mg subcut .1XW richard betes 07/14/23 07/13/23 History subcutaneous pen injector (Ozempic) metolazone 2.5 mg tablet 2.5 mg PO .every / #8 tabs 07/15/23 Unknown Rx oxycodone-acetaminophen 5 mg-325 1 tab PO Q6H PRN pain 3 days #12 01/15/24 Unknown Rx mg tablet (Percocet) tabs potassium chloride 20 mEq See Rx Instructions .Route 0 08/05/24 Unknown Rx tablet,extended release(part/cryst) .COMPLEX #60 TABLE TS duloxetine 60 mg capsule,delayed 60 mg PO DAILY Unknown History release ergocalciferol (vitamin D2) 1,250 1,250 mcg PO QWEEK 1 01/10/24 Unknown History mcg (50,000 unit) capsule (Vitamin D2) ferrous sulfate 325 mg (65 mg 325 mg PO DAILY 11/09/24 Unknown History iron) tablet (FeroSul) lorazepam 1 mg tablet 1 mg PO TID 11/09/24 Unknown History cephalexin 500 mg capsule 500 mg PO TID #14 caps 11/12 Unknown Rx doxycycline monohydrate 100 mg 100 mg PO BID 5 days #1 0 caps 11/12/24 Unknown Rx capsule methocarbamol 750 mg tablet 1,500 mg PO TID muscle spa sm 08/16/25 Unknown History oxycodone 15 mg tablet 15 mg PO Q6H PRN PRN pain Unknown History pregabalin 150 mg capsule 150 mg PO TID 08/16/25 Unkno wn History semaglutide 2 mg/dose (8 mg/3 mL) mg subcut 08/16/25 U nknown History subcutaneous pen injector (Ozempic) Allergy/AdvReac Type Severity Reaction Status Date / Time cyclobenzaprine HCl (From Allergy Hives Verified 08/16/25 18:21 Flexeril) venlafaxine (From Effexor) AdvReac Severe hives Verified 08/16/25 18:21 Family History Father CVA (cerebral vascular accident) Heart disease Diabetes Mother Thyroid disorder Surgical History History of delivery H/O arthroscopic knee surgery History of cholecystectomy Social History (Updated 08/16/25 @ 21:[address] Olamide Mas MD) household members: none Smoking Status: Former smoker how long ago did patient quit smokin PPD smoker, quit x 1 year approximately. second hand exposure: Yes alcohol intake: never substance use type: does not use caffeine: Yes Type: carbonated beverages Number of servings: 1 and coffee Number of servings: 1 ROS ROS Narrative Admission Review of Systems: CONSTITUTIONAL: No weight loss, + subjective fever, chills, weakness or fatigue. HEENT: Eyes: No visual loss, blurred vision, double vision or yellow sclerae. Ears, Nose, Throat: No hearing loss, sneezing, congestion, runny nose or sore throat. SKIN: No rash or itching, lesions except + significant bilateral lower extremityvenous stasis skin changes, stasis blister wounds/seepage RLE. CARDIOVASCULAR: + Increased lower extremity swelling, edema, worsened orthopnea,weight gain. No chest pain, chest pressure or chest discomfort, palpitations, syncopal events. RESPIRATORY: + Dyspnea, worse with exertion. No marked cough, productive sputum or wheezing. No hemoptysis. GASTROINTESTINAL: No anorexia, nausea, vomiting or diarrhea, abdominal pain, melena, BRBPR. GENITOURINARY: No dysuria, frequency, urgency or retention. NEUROLOGICAL: No headache, dizziness, syncope, paralysis, ataxia, numbness or tingling in the extremities, focal weakness, change in bowel or bladder control,seizure. MUSCULOSKELETAL: + muscle, back pain, joint pain or stiffness. HEMATOLOGIC: + Chronic anemia, easy bleeding/bruising. PSYCHIATRIC: + History of anxiety and depression. ENDOCRINOLOGIC: No reports of sweating. + Reported recent cold or heat intolerance. No polyuria or polydipsia. ALLERGIES: + History of hives, allergic rhinitis. Vital Signs Vital Signs Vital Signs: 08/16/25 18:21 08/16/25 19:24 08/16/25 20:00 Temperature 98.1 F 98.6 F 98.9 F Temperature Source Temporal Oral Oral Pulse Rate 99 90 91 Respiratory Rate 20 H 17 14 Blood Pressure 156/71 H 122/59 H 144/69 H Blood Pressure Mean 99 80 94 Pulse Ox 96 96 99 Oxygen Delivery Method Nasal Cannula Room Air Nasal Cannula Oxygen Flow Rate (L/min) 5 5 Weight Weight: 408 lb 15.32 oz Body Mass Index (BMI) 67.3 Physical Exam Narrative Physical Examination: General: Awake, alert, oriented x 3, fatigued appearing, uncomfortable appearing, cooperative, seated upright in the ED bed. Skin: Normal color, normal turgor, no icterus, no cyanosis except for significant bilateral lower extremity venous stasis skin changes, chronic significant edema pedal to proximal stratton, erythematous lichenified skin noted, bilateral venous stasis blisters with wounds with seepage, R> L with odor associated and increased erythema to the focused RLE. HEENT: AT/NC, EOMI, PERRLA, MMM, no carotid bruits, unable to discern JVD given thickened neck. Lungs: Significantly diminished, greater bases, mildly increased respiratory rate but no distress, no appreciated rales, rhonchi or wheezing. Heart: Regular rate with regular rhythm; no gallop, rub audible. Abdomen: Soft, morbidly obese, NTTP, distant BS, difficult to discern distentionand HSM given habitus. Extremities: No cyanosis, no clubbing, see skin. Neurological: Awake, alert, oriented as noted, cognitive function intact, pupilsequally reactive to light and accommodation, cranial nerves grossly normal, moving all 4 extremities, no focal deficits, strength severely globally decreased secondary to acute presentation complaints, habitus underlying comorbidities. Psychiatric: Affect appears fatigued, uncomfortable noting discomfort to bilateral lower extremities, no acute evidence of depressive or anxiety feelingsbut does have underlying history. Results Lab / Micro Data 08/16/25 19:30 08/16/25 19:30 Labs: Laboratory Results - last 24 hr 08/16/25 19:30: WBC 9.4, RBC 3.26 L, Hgb 9.2 L, Hct 29.6 L, MCV 90.8, MCH 28.2, MCHC 31.1 L, RDW Std Deviation 45.8 H, RDW Coeff of Darrion 13.7, Plt Count 254, MPV10.5, Immature Gran % (Auto) 0.600, Neut % (Auto) 72.2 H, Lymph % (Auto) 20.4, [place] % (Auto) 4.1, Eos % (Auto) 2.0, Baso % (Auto) 0.7, Absolute Neuts (auto) 6.8, Absolute Lymphs (auto) 1.92, Nucleated RBC % 0, PT 14.3, INR 1.1, APTT 29.8, Sodium 134, Potassium 3.8, Chloride 90 L, Carbon Dioxide 30.0, Anion Gap 14, BUN 32 H, Creatinine 1.07, Estim Creat Clear Calc 110.03, Est GFR (MDRD) Non-Af 64, BUN/Creatinine Ratio 29.7 H, Glucose 525 H*, Lactic Acid 1.9, Calcium8.2, Total Bilirubin 0.23, AST 24, ALT 23, Alkaline Phosphatase 81, Troponin T High Sens 37 H, NT pro BNP II 163, Total Protein 6.7, Albumin 3.5, Globulin 3.2,Albumin/Globulin Ratio 1.1 Imaging Radiology Impression Chest X-Ray 08/16/25 19:05 IMPRESSION: Cardiomegaly with vascular congestion. No airspace consolidation or pleural effusions. Reading Location: [facility] Assessment & Plan Assessment/Plan (1) Cellulitis of leg: QUALIFIERS: Laterality: left Qualified Code(s): L03.116 - Cellulitis of left lower limb PLAN: Plan The patient is a 50 y/o F w/ PMHx: Morbid obesity, Chronic anemia/iron deficiency anemia, CKD stage II versus III, uncertain, HFpEF, COPD w/ Chronic Hypoxic and Hypercapnic Respiratory Failure (4L NC), LOGAN on BIPAP, HTN, HLD, GERD, Anxiety and Depression, Former Tobacco use, Diabetes mellitus type II withchronic neuropathy, Hx VTE who presents to the [facility] ED on 08/16/2025 with history of increasing edema to the lower extremity, dyspnea worsewith exertion with drainage to the right lower extremity and redness with subjective fever and chills noting that the edema to the right has been greater with notable orthopnea concurrently with some admission that she has not been compliant intermittently with her PAP therapy prompting eventual ED evaluation. #1. Acute right anterior mid lower extremity cellulitis (no obvious abscess) with seeping stasis wounds BL, R>L, complicated by underlying bilateral lower extremity venous stasis dermatitis with #2 as noted: Will admit to PCU, will maintain on IV Vanco and Unasyn, pending wound Cx per ED and will also request wound MRSA PCR, plan repeat CBC in AM, continue affected extremity elevation above heart when seated and in bed, monitor erythema outline with VS checks, continue home Eliquis regimen, if able to tolerate will place neck tushar wraps with lower extremity elevation, requested procalcitonin, diuresis to assist alsoas noted. #2. Questionable Acute Decompensated HFpEF with indeterminate cardiac enzymes suspected secondary to demand: Will maintain on cardiac telemetry obtain cardiacenzyme series, obtain serial EKGs, continue IV lasix diuresis as this will also help with #1, monitor I/Os, maintain on intake restriction, continue medical therapy, obtain TSH and magnesium level. Most recent echo noted 11/12/2024 with EF 55% with no evidence of diastolic dysfunction thus will not repeat. Complicates #1, will maintain snug tushar wraps with lower extremity elevation if able to tolerate. BiPAP as needed with naps and nightly encouraged strongly. PT/OT/case management consulted for discharge planning. #3. Diabetes mellitus type II w/ Hyperglycemia with chronic neuropathy: Likely hyperglycemia is associated with acute presentation as noted, hemoglobin A1c requested with last noted 11/10/24 10.4%, hold oral home regimen, continue home insulin regimen with adjustments as needed although currently attempting to clarify her home long-acting specific dosing, ADA diet, accu checks w/ ISS, continue home pregabalin regimen. #4. Chronic Kidney Disease Stage II based on previous GFR trending but has vacillated and sometimes been consistent with stage III but unclear if this is acutely, will discern further with further lab assessment: Admission BUN/Cr 32/1.07, GFR 64, GFR 45, baseline renal function primarily 0.8-1.1, GFR has certainly vacillated thus unclear if stage II versus stage III, will continue totrend to further elucidate. #5. Chronic normocytic anemia/iron deficiency anemia: Admission hemoglobin 9.2,MCV 90.8, baseline hemoglobin primarily recently 8-9 range, we will continue to trend CBC, continue iron supplementation. #6. Chronic COPD with chronic hypoxic and hypercarbic respiratory failure (4L NC) with allergic rhinitis: Will maintain on oxygen supplementation with wean astolerated to home oxygen 4 L nasal cannula supplementation, continue ATC budesonide therapy, PRN albuterol, HOB, IS parameters. Temporally holding loratadine regimen. #7. Anxiety and depression: We will continue patient home lorazepam and duloxetine home regimen. #8. Hypertension: Continue home regimen including diltiazem, lisinopril, metoprolol, Lasix IV as noted, PRN hydralazine. #9. Hyperlipidemia: Continue home statin and fenofibrate regimen. FLP in AM. #10. History of VTE: We will continue patient home apixaban regimen. #11. GERD: We will continue patient home PPI. #12. LOGAN: Will place on BiPAP nightly, encourage compliance. #13. Former Tobacco Abuse: Encouraged continued tobacco cessation, notes quit for approximately 1 year. #14. DVT prophylaxis: Eliquis. #15. CODE status: Patient JAKE is her daughter and living will is in place. Full Code status. Charges/Coding Visit Charges Inpatient E&M: 53207 Init Hosp L3 08/16/252131 <Electronically signed by Olamide Mas MD> Cosigner Signature (if applicable): CC: Dr. Olamide Mas MD; Dr. Delmy Solorzano MD~ Signed [facility] Work Phone: 1(415) 699-641409-16-2025 Consult note [facility] Medical Records Department [address] [place] [address] Pharmacokinetic/Renal -Consult 08/16/25 2317 MR#: [id number] Acct: [id number] Name: MACARIO WALLACE Rep #:[id number] : 1975 50 From: Kaylene Trejo PCP: Dr. Delmy Solorzano MD Status:ADM IN Location: [place] [address] Consult Antibiotic Management Pharmacy has been consulted to manage selected antibiotic: Vancomycin Type of Intervention Type of Consult: New start Suspected Infection Suspected Infection: Skin/Soft tissue Labs Labs: Sodium 134 mmol/L (133-145) 08/16/25 19:30 Potassium 3.8 mmol/L (3.3-5.1) 08/16/25 19:30 Chloride 90 mmol/L (98-108) L 08/16/25 19:30 Carbon Dioxide 30.0 mmol/L (21.0-32.0) 08/16/25 19:30 Anion Gap 14 (5-15) 08/16/25 19:30 BUN 32 mg/dL (4-19) H 08/16/25 19:30 Creatinine 1.07 mg/dL (0.70-1.20) 08/16/25 19:30 Est GFR (MDRD) Non-Af 64 (>60) 08/16/25 19:30 BUN/Creatinine Ratio 29.7 RATIO (10-20) H 08/16/25 19:30 Glucose 525 mg/dL (70-99) H* 08/16/25 19:30 Estimated Creatinine Clearance Estimated Creatinine Clearance: 110.03 Goal Trough Goal Trough: 15-20 mcg/mL Pharmacy Plan for Drug Dosing Pharmacy Plan for Drug Dosing: NEW START IV VANCOMYCIN Consulting Physician: Dr. Mas Indication: RLE Cellulitis Goal Trough: 15-20 SrCr: 1.07 CrCl: 110.03 Comments: Received 2000mg x1 dose in ED @ 20:48 08/16/25 Vancomycin Dose: 1500mg Q8H to start @ 05:00 08/17/25 Pending Level: 08/17/25 @ 20:30 prior to 4th dose Pharmacy Service will continue to monitor and adjust dosing as required. Follow-Up Labs Follow-Up Labs: Trough: Vancomycin (08/17/25 @ 20:30) 08/16/258 Date _ Kaylene Trejo 08/16/25 2330 e > Cosigner Signature (if applicable): Date Olamide Mas MD CC: ~ Signed [facility]09-16-2025 Evaluation note* Diagnosis Onset Date Resolution Status Admit Date Cellulitis and abscess of right leg acute August 16, 2025 9:09pm Contusion of right great toe with damage to nail acute August 162024 9:09pm Elevated troponin acute [facility] [place] [place] 20[place] 9:09pm Right leg pain acute August 16, 2025 9:09pm Skin ulcer of left great toe , limited to breakdown of skin acute Sep tember 2024 9:09pm Type 2 diabetes mellitus wit h hyperglycemia acute August 16, 2025 9:09pm Chronic venous stasis dermatitis chronic August 16, 2025 9:09pm Cellulitis of leg resolved [facility] [place] 2024 9:09pm Sepsis resolved August 9:09pm [facility] Work Phone: 1(444) 203-730609-16-2025 Discharge summary Author Jozef Kaiser [facility] Note Date/Time August 16, 2025 9:07pm [facility] Medical Records Department [address] [place] [address] Emergency Department Summary 08/16/25 MR#: [id number] Acct: [id number] Name: MACARIO WALLACE Rep #:[id number] : 1975 50 From: Jozef Kaiser MD PCP: Dr. Delmy Solorzano MD Status:REG ER Location: ED HPI History of Present Illness Chief Complaint: Edema Detail of Chief Complaint: Edema, dyspnea on exertion, chills and subjective fever and drainage RLE Informant: patient Onset/Context/Timing Onset: Days Context: Gradual Onset Timing: Continuous Quality: Swelling of both lower extremities right left greater than left, REED Location: Cardiovascular and Derm Current Severity: Mild Maximum Severity: Moderate Worsened by: Activity and supine position Relieved by: Remaining still and sleeping with 3 pillows Associated Symptoms Associated Symptoms: Subjective fever with chills and drainage from RLE Narrative Narrative: Patient is a 50-year-old woman. She presents because of multiple symptoms. Sheis complaining of dyspnea on exertion which she has a past medical history of. She has history of respiratory failure with hypoxemia. She does have obstructive sleep apnea. She is not compliant at all times with her CPAP device. Patient complains of subjective fever with chills. She denies headache, visual, ocular auditory symptoms. She denies chest pressure, tightness or heaviness. She does endorse 3 pillow orthopnea and dyspnea on exertion. She also endorses increased swelling of her lower extremities. There is drainage from the right. She has noted blisters onthe left. She denies symptoms of claudication. She has been a type II diabeticfor 20+ years. Has been on insulin for 5 years. Prior similar symptoms: Yes Recent Illness/Hospitalization: [facility] Medical History MRSA cellulitis of left foot Cellulitis of leg Arthritis Non-smoker CHF (congestive heart failure) History of diabetes mellitus Anemia Hypoxia Morbid obesity Venous stasis dermatitis of both lower extremities BMI 60.0-69.9, adult Noncompliance with CPAP treatment Acute on chronic respiratory failure with hypoxia and hypercapnia Perianal abscess Type 2 diabetes mellitus with hyperglycemia Contusion of knee, right Chronic diastolic (congestive) heart failure Depression Diabetes GERD (gastroesophageal reflux disease) BiPAP (biphasic positive airway pressure) dependence Sleep apnea On home oxygen therapy Smoker COPD (chronic obstructive pulmonary disease) Hypertension Congestive heart failure KERRY (acute kidney injury) Chronic respiratory failure with hypoxia Opiate overdose History of left heart catheterization (LHC) (~01/05/19) Type 2 diabetes mellitus Old myocardial infarction Essential hypertension Restrictive lung disease secondary to obesity Dyspnea on exertion Pulmonary embolism Hidradenitis Non-healing open wound of left groin Open wound of vulva with complication Necrotizing soft tissue infection Abscess of vulva Soft tissue abscess of inguinal region Respiratory failure with hypoxia Abscess Hyperglycemia due to type 2 diabetes mellitus NSTEMI (non-ST elevated myocardial infarction) Tobacco abuse Hyperlipidemia Morbid obesity History of MRSA infection Anxiety 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 Home Medications ?Medication ?Instructions ?Recorded ?Last Taken ?Type multivit-iron 18 mg-folic acid 400 1 ea PO DAILY suppl ement 03/26/17 07/14/23 History mcg-calcium 500 mg-minerals tablet omeprazole 40 mg capsule,delayed 40 mg PO DAILY GERD 0 12/15/18 07/14/23 History release loratadine 10 mg tablet 10 mg PO DAILY PRN Allergies 03/01/20 07/14/23 History apixaban 5 mg tablet 5 mg PO BID blood thinner 07/14/23 History diltiazem HCl 120 mg 120 mg PO DAILY heart rate 0 08/20/20 07/14/23 History capsule,extended release 24 hr lisinopril 10 mg tablet 10 mg PO DAILY blood pressur e 03/26/21 07/14/23 History metformin 500 mg tablet,extended 1,000 mg PO DAILY richard betes 03/26/21 07/14/23 History release 24 hr metoprolol succinate 25 mg 25 mg PO DAILY blood pressu re 03/26/21 07/14/23 History tablet,extended release 24 hr atorvastatin 80 mg tablet 80 mg PO QHS cholesterol 09/2107/14/23 History furosemide 40 mg tablet 80 mg PO DAILY diuretic 09/0107/14/23 History albuterol sulfate 2.5 mg/3 mL 2.5 mg inhalation Q4H GA N SOB 12/09/22 07/10/23 History (0.083 %) solution for nebulization fenofibrate nanocrystallized 145 145 mg PO DAILY MACIEL STEROL 12/09/22 07/14/23 History mg tablet insulin glargine U-300 conc 300 104 unit subcut BID di abetes 07/14/23 07/13/23 History unit/mL (3 mL) subcutaneous pen (Toujeo Max U-300 SoloStar) semaglutide 1 mg/dose (4 mg/3 mL) 1 mg subcut .1XW richard bet07/14/23 07/13/23 History subcutaneous pen injector (Ozempic) metolazone 2.5 mg tablet 2.5 mg PO .every / #8 tabs 07/15/23 Unknown Rx oxycodone-acetaminophen 5 mg-325 1 tab PO Q6H PRN pain 3 days #12 01/15/24 Unknown Rx mg tablet (Percocet) tabs potassium chloride 20 mEq See Rx Instructions .Route 0 08/05/24 Unknown Rx tablet,extended release(part/cryst) .COMPLEX #60 TABLE TS duloxetine 60 mg capsule,delayed 60 mg PO DAILY Unknown History release ergocalciferol (vitamin D2) 1,250 1,250 mcg PO QWEEK 1 01/10/24 Unknown History mcg (50,000 unit) capsule (Vitamin D2) ferrous sulfate 325 mg (65 mg 325 mg PO DAILY 11/09/24 Unknown History iron) tablet (FeroSul) lorazepam 1 mg tablet 1 mg PO TID 11/09/24 Unknown History cephalexin 500 mg capsule 500 mg PO TID #14 caps 11/12 Unknown Rx doxycycline monohydrate 100 mg 100 mg PO BID 5 days #1 0 caps 11/12/24 Unknown Rx capsule methocarbamol 750 mg tablet 1,500 mg PO TID muscle spa sm 08/16/25 Unknown History oxycodone 15 mg tablet 15 mg PO Q6H PRN PRN pain Unknown History pregabalin 150 mg capsule 150 mg PO TID 08/16/25 Unkno wn History semaglutide 2 mg/dose (8 mg/3 mL) mg subcut 08/16/25 U nknown History subcutaneous pen injector (Ozempic) Allergy/AdvReac Type Severity Reaction Status Date / Time cyclobenzaprine HCl (From Allergy Hives Verified 08/16/25 18:21 Flexeril) venlafaxine (From Effexor) AdvReac Severe hives Verified 08/16/25 18:21 Family History Father CVA (cerebral vascular accident) Heart disease Diabetes Mother Thyroid disorder Surgical History History of delivery H/O arthroscopic knee surgery History of cholecystectomy Social History household members: none Smoking Status: Current some day smoker tobacco type: cigarettes and e- cigarettes how long ago did patient quit smokin PPD smoker second hand exposure: Yes alcohol intake: never substance use type: does not use caffeine: Yes Type: carbonated beverages Number of servings: 1 and coffee Number of servings: 1 ROS ROS ED Constitutional Constitutional ED: Reports chills, fever(s) and subjective; Denies sweats Eyes Eyes: Denies blurry vision or change in vision ENT ENT ED: Denies ear pain or rhinorrhea Cardiovascular Cardiovascular: Denies chest pain or palpitations Respiratory/Chest Respiratory/Chest: Denies cough, dyspnea or dyspnea on exertion Gastrointestinal Gastrointestinal: Reports nausea; Denies abdominal pain, constipation or vomiting Genitourinary Genitourinary ED: Reports urinary frequency; Denies dysuria or hematuria Musculoskeletal Musculoskeletal: Denies arthralgias or myalgias Integumentary Reports rash Neurologic Neurologic: Reports weakness; Denies headache(s) or paresthesias Endocrine Endocrinology: Denies cold intolerance or heat intolerance Hematologic/Lymphatic Hematologic/Lymphatic: Reports systems reviewed and no addt'l complaints, exceptas documented EXAM Physical Exam Const Vital Signs: 08/16/25 18:21 08/16/25 19:24 08/16/25 20:00 Temperature 98.1 F 98.6 F 98.9 F Temperature Source Temporal Oral Oral Pulse Rate 99 90 91 Respiratory Rate 20 H 17 14 Blood Pressure 156/71 H 122/59 H 144/69 H Blood Pressure Mean 99 80 94 Pulse Ox 96 96 99 Oxygen Delivery Method Nasal Cannula Room Air Nasal Cannula Oxygen Flow Rate (L/min) 5 5 Positive well nourished and well developed Constitutional Narrative: Blood pressure is elevated. She is not hypoxic. General Appearance ED: well developed HEENT Reports dry mucous membranes HEENT Narrative: Head is atraumatic, cephalic. Ears are normal. Nares are patent. Patient has floppy eye eyelid syndrome. Posterior pharynx is normal. Mouth ED: Yes dry mucous membranes Mouth: dry mucous membranes Eyes PERRL and EOMs intact bilaterally General Eye ED: Negative for pale conjunctiva or scleral icterus Neck no lymphadenopathy and supple Neck Narrative: Unable to assess for JVD due to body habitus. Chest Wall inspection of chest normal and palpation of chest normal Resp normal respiratory effort and clear to auscultation bilaterally Cardio regular rate, regular rhythm, S1 normal heart sound, S2 normal heart sound and no murmurs GI normal to inspection, nondistended, normoactive bowel sounds, non-tender, non-distended and no masses; Negative for hepatosplenomegaly GI Narrative: Exam limited due to body habitus. Back/Spine Back/Spine Narrative: Inspection of the back is normal. Extremity Extremity Narrative: Patient has venous stasis dermatitis bilaterally. Patient has pustular drainagenoted from the anterior mid right leg. The area is warm and slightly indurated. Patient's great toenail spontaneously fell off. Probably due to mild infection. Neuro oriented x3, CN's II-XII intact bilaterally and No no sensory deficits noted Sensorium / Orientation: alert Psych mental status grossly normal Skin Skin Narrative: Described under the extremity portion of the EMR MDM MDM MDM Narrative Medical decision making narrative: Differential diagnosis includes CHF, chronic dyspnea on exertion due to BMI of 67, pneumonia and cardiac ischemia. Will obtain EKG, troponin, BNP. Patient has a infected right leg with mucopurulent drainage. Culture was obtained. Patient was started on antibiotics Unasyn and vancomycin since she has prior history of MRSA. Electrolyte panel was obtained as well as CBC to assess for endorgan dysfunction. Lab Data Attestation: I reviewed the patient's lab results. Lab results narrative: White count is normal with an H&H 9.2 and 29.6 with normal indices. Comprehensive metabolic panel reveals an elevated BUN to creatinine ratio of 29:1. Blood sugar is elevated 525 with a normal CO2 anion gap. Lactate is normal. Liver enzymes are normal. Troponin is slight elevated 37. This is nondiagnostic. 2-hour has been ordered. Labs: Laboratory Results - last 24 hr 08/16/25 19:30 WBC 9.4 RBC 3.26 L Hgb 9.2 L Hct 29.6 L MCV 90.8 MCH 28.2 MCHC 31.1 L RDW Std Deviation 45.8 H RDW Coeff of Darrion 13.7 Plt Count 254 MPV 10.5 Immature Gran % (Auto) 0.600 Neut % (Auto) 72.2 H Lymph % (Auto) 20.4 Defiance % (Auto) 4.1 Eos % (Auto) 2.0 Baso % (Auto) 0.7 Absolute Neuts (auto) 6.8 Absolute Lymphs (auto) 1.92 Nucleated RBC % 0 PT 14.3 INR 1.1 APTT 29.8 Sodium 134 Potassium 3.8 Chloride 90 L Carbon Dioxide 30.0 Anion Gap 14 BUN 32 H Creatinine 1.07 Estim Creat Clear Calc 110.03 Est GFR (MDRD) Non-Af 64 BUN/Creatinine Ratio 29.7 H Glucose 525 H* Lactic Acid 1.9 Calcium 8.2 Total Bilirubin 0.23 AST 24 ALT 23 Alkaline Phosphatase 81 Troponin T High Sens 37 H NT pro BNP II 163 Total Protein 6.7 Albumin 3.5 Globulin 3.2 Albumin/Globulin Ratio 1.1 Radiography Chest X-Ray - ED: 2 View, Read by ED Physician (There is no obvious infiltrate, effusion. I do not appreciate cephalization or curly B-lines.), No Acute Disease, Chronic Changes and Cardiomegaly Diagnostic Testing: Clinical Impression(s) from Imaging Studies Chest X-Ray 08/16/25 19:05 IMPRESSION: Cardiomegaly with vascular congestion. No airspace consolidation or pleural effusions. Reading Location: [facility] The radiology report was reviewed. Agree with cardiomegaly disagree with vascular congestion. Furthermore patient has no rales and BNP is normal. EKG Initial EKG: Attestation: I personally reviewed and interpreted this EKG as follows: Interpretation: Sinus Rhythm (Rate is 93. GA interval is 140 ms. Cures duration 86 ms her QT duration Aleks 68 ms. Wilson normal. EKG is normal.) Management Discussion w/another healthcare provider: Hospitalist (Spoke with Dr. Mas. Full admission PCU.) Treatment and Re-Evaluation :: Patient received 15 units of insulin for her blood sugar 525. The hospitalist was paged for admission. Discharge Plan Dx/Rx/DC Orders Clinical Impression: Cellulitis and abscess of right leg, Morbid obesity, Type 2 diabetes mellitus with hyperglycemia, Restrictive lung disease secondary to obesity, Chronic respiratory failure with hypoxia, Acute prerenal azotemia, Chronic venous stasis dermatitis, 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, Elevated troponin Disposition Disposition: Acute Care Hospital [facility] What to do if you have Problems For any increased pain, shortness of breath, bleeding, nausea or vomiting, chestpain, or any unexpected problems, contact your Primary Care Provider. Call [facility] ([phone]) or report to the closest Emergency Room. Call 911 if necessary. 08/16/252106 <Electronically signed by Jozef Kaiser MD> Cosigner Signature (if applicable): CC: Dr. Delmy Solorzano MD ~ Signed [facility] Work Phone: [phone] [phone] History and physical note [facility] Medical Records Department [address] [place] [address] H&P Exam - Hospitalist 08/16/252105 MR#: [id number] Acct: [id number] Name: MACARIO WALLACE Rep #:[id number] : 1975 50 From: Olamide Mas MD PCP: Dr. Delmy Solorzano MD Status:ADM IN Location: [facility] [id number] HPI - General General Date of Admission: 08/16/25 Date of Service: 08/16/25 Chief Complaint: Worsening LE edema, orthopnea, dyspnea, RLE stasis blisters with drainage. HPI Narrative The patient is a 50 y/o F w/ PMHx: Morbid obesity, Chronic anemia/iron deficiency anemia, CKD stageII versus III, uncertain, HFpEF, COPD w/ Chronic Hypoxic and Hypercapnic Respiratory Failure (4L NC), LOGAN on BIPAP, HTN, HLD, GERD, Anxiety and Depression, Former Tobacco use, Diabetes mellitus type II withchronic neuropathy, Hx VTE who presents to the [facility] ED on 08/16/2025 with history of increasing edema to the lower extremity, dyspnea worsewith exertion with drainage to the right lower extremity and redness with subjective fever and chills noting that the edema to the right has been greater with notable orthopnea concurrently with some admission that she has not been co mpliant intermittently with her PAP therapy prompting eventual ED evaluation. Workup in the ED included T98.1, heart rate 99, BP 156/71, respiratory rate 20, 96% on 5 L nasal cannula with patient most recently noted to be on 4 L nasal cannula 10/2024 with most recent repeat vitals T98.9 Oral, heartrate 91, BP 134/69, respiratory rate 14, 99% on 5 L nasal cannula, CBC with WC 9.4, hemoglobin 9.2,MCV 90.8, platelet 254 without marked shift, unremarkable coags,CMP with chloride 90, BUN/creatinine 32/1.07, GFR 64, glucose 525, lactic acid 1.9, anion gap 14, hepatic profile unremarkable, initialtroponin 37, NT proBNP II 163, chest x-ray with cardiomegaly with vascular congestion, EKG with sinus rhythm with no acute evidence of ischemia, blood culture x 2 pending per ED. Inthe ED patient ministered Unasyn 3 g IV x 1, insulin U-500 15 units subcu x 1, vancomycin 2000 mg IV x 1, oxycodone 10mg p.o. x 1. From review of records 11/12/2024 last weight of patient 387 pounds now upon current presentation up to408 pounds. [facility] Medical History (Updated 08/16/25 @ 21:[address] Olamide Mas MD) Cellulitis of leg MRSA cellulitis of left foot Arthritis Non-smoker CHF (congestive heart failure) History of diabetes mellitus Anemia Hypoxia Morbid obesity Venous stasis dermatitis of both lower extremities BMI 60.0-69.9, adult Noncompliance with CPAP treatment Acute on chronic respiratory failure with hypoxia and hypercapnia Perianal abscess Type 2 diabetes mellitus with hyperglycemia Contusion of knee, right Chronic diastolic (congestive) heart failure Depression Diabetes GERD (gastroesophageal reflux disease) BiPAP (biphasic positive airway pressure) dependence Sleep apnea On home oxygen therapy Smoker COPD (chronic obstructive pulmonary disease) Hypertension Congestive heart failure KERRY (acute kidney injury) Chronic respiratory failure with hypoxia Opiate overdose History of left heart catheterization (LHC) (~01/05/19) Type 2 diabetes mellitus Old myocardial infarction Essential hypertension Restrictive lung disease secondary to obesity Dyspnea on exertion Pulmonary embolism Hidradenitis Non-healing open wound of left groin Open wound of vulva with complication Necrotizing soft tissue infection Abscess of vulva Soft tissue abscess of inguinal region Respiratory failure with hypoxia Abscess Hyperglycemia due to type 2 diabetes mellitus NSTEMI (non-ST elevated myocardial infarction) Tobacco abuse Hyperlipidemia Morbid obesity History of MRSA infection Anxiety 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 Home Medications ?Medication ?Instructions ?Recorded ?Last Taken ?Type multivit-iron 18 mg-folic acid 400 1 ea PO DAILY suppl ement 03/26/17 07/14/23 History mcg-calcium 500 mg-minerals tablet omeprazole 40 mg capsule,delayed 40 mg PO DAILY GERD 0 12/15/18 07/14/23 History release loratadine 10 mg tablet 10 mg PO DAILY PRN Allergies 03/01/20 07/14/23 History apixaban 5 mg tablet 5 mg PO BID blood thinner 07/14/23 History diltiazem HCl 120 mg 120 mg PO DAILY heart rate 0 08/20/20 07/14/23 History capsule,extended release 24 hr lisinopril 10 mg tablet 10 mg PO DAILY blood pressur e 03/26/21 07/14/23 History metformin 500 mg tablet,extended 1,000 mg PO DAILY richard betes 03/26/21 07/14/23 History release 24 hr metoprolol succinate 25 mg 25 mg PO DAILY blood pressu re 03/26/21 07/14/23 History tablet,extended release 24 hr atorvastatin 80 mg tablet 80 mg PO QHS cholesterol 09/2107/14/23 History furosemide 40 mg tablet 80 mg PO DAILY diuretic 09/0107/14/23 History albuterol sulfate 2.5 mg/3 mL 2.5 mg inhalation Q4H GA N SOB 12/09/22 07/10/23 History (0.083 %) solution for nebulization fenofibrate nanocrystallized 145 145 mg PO DAILY MACIEL STEROL 12/09/22 07/14/23 History mg tablet insulin glargine U-300 conc 300 104 unit subcut BID di abetes 07/14/23 07/13/23 History unit/mL (3 mL) subcutaneous pen (Toujeo Max U-300 SoloStar) semaglutide 1 mg/dose (4 mg/3 mL) 1 mg subcut .1XW richard betes 07/14/23 07/13/23 History subcutaneous pen injector (Ozempic) metolazone 2.5 mg tablet 2.5 mg PO .every / #8 tabs 07/15/23 Unknown Rx oxycodone-acetaminophen 5 mg-325 1 tab PO Q6H PRN pain 3 days #12 01/15/24 Unknown Rx mg tablet (Percocet) tabs potassium chloride 20 mEq See Rx Instructions .Route 0 08/05/24 Unknown Rx tablet,extended release(part/cryst) .COMPLEX #60 TABLE TS duloxetine 60 mg capsule,delayed 60 mg PO DAILY Unknown History release ergocalciferol (vitamin D2) 1,250 1,250 mcg PO QWEEK 1 01/10/24 Unknown History mcg (50,000 unit) capsule (Vitamin D2) ferrous sulfate 325 mg (65 mg 325 mg PO DAILY 11/09/24 Unknown History iron) tablet (FeroSul) lorazepam 1 mg tablet 1 mg PO TID 11/09/24 Unknown History cephalexin 500 mg capsule 500 mg PO TID #14 caps 11/12 Unknown Rx doxycycline monohydrate 100 mg 100 mg PO BID 5 days #1 0 caps 11/12/24 Unknown Rx capsule methocarbamol 750 mg tablet 1,500 mg PO TID muscle spa sm 08/16/25 Unknown History oxycodone 15 mg tablet 15 mg PO Q6H PRN PRN pain Unknown History pregabalin 150 mg capsule 150 mg PO TID 08/16/25 Unkno wn History semaglutide 2 mg/dose (8 mg/3 mL) mg subcut 08/16/25 U nknown History subcutaneous pen injector (Ozempic) Allergy/AdvReac Type Severity Reaction Status Date / Time cyclobenzaprine HCl (From Allergy Hives Verified 08/16/25 18:21 Flexeril) venlafaxine (From Effexor) AdvReac Severe hives Verified 08/16/25 18:21 Family History Father CVA (cerebral vascular accident) Heart disease Diabetes Mother Thyroid disorder Surgical History History of delivery H/O arthroscopic knee surgery History of cholecystectomy Social History (Updated 08/16/25 @ 21:[address] Olamide Mas MD) household members: none Smoking Status: Former smoker how long ago did patient quit smokin PPD smoker, quit x 1 year approximately. second hand exposure: Yes alcohol intake: never substance use type: does not use caffeine: Yes Type: carbonated beverages Number of servings: 1 and coffee Number of servings: 1 ROS ROS Narrative Admission Review of Systems: CONSTITUTIONAL: No weight loss, + subjective fever, chills, weakness or fatigue. HEENT: Eyes: No visual loss, blurred vision, double vision or yellow sclerae. Ears, Nose, Throat: No hearing loss, sneezing, congestion, runny nose or sore throat. SKIN: No rash or itching, lesions except + significant bilateral lower extremityvenous stasis skin changes, stasis blister wounds/seepage RLE. CARDIOVASCULAR: + Increased lower extremity swelling, edema, worsened orthopnea,weight gain. No chest pain, chest pressure or chest discomfort, palpitations, syncopal events. RESPIRATORY: + Dyspnea, worse with exertion. No marked cough, productive sputum or wheezing. No hemoptysis. GASTROINTESTINAL: No anorexia, nausea, vomiting or diarrhea, abdominal pain, melena, BRBPR. GENITOURINARY: No dysuria, frequency, urgency or retention. NEUROLOGICAL: No headache, dizziness, syncope, paralysis, ataxia, numbness or tingling in the extremities, focal weakness, change in bowel or bladder control,seizure. MUSCULOSKELETAL: + muscle, back pain, joint pain or stiffness. HEMATOLOGIC: + Chronic anemia, easy bleeding/bruising. PSYCHIATRIC: + History of anxiety and depression. ENDOCRINOLOGIC: No reports of sweating. + Reported recent cold or heat intolerance. No polyuria or polydipsia. ALLERGIES: + History of hives, allergic rhinitis. Vital Signs Vital Signs Vital Signs: 08/16/25 18:21 08/16/25 19:24 08/16/25 20:00 Temperature 98.1 F 98.6 F 98.9 F Temperature Source Temporal Oral Oral Pulse Rate 99 90 91 Respiratory Rate 20 H 17 14 Blood Pressure 156/71 H 122/59 H 144/69 H Blood Pressure Mean 99 80 94 Pulse Ox 96 96 99 Oxygen Delivery Method Nasal Cannula Room Air Nasal Cannula Oxygen Flow Rate (L/min) 5 5 Weight Weight: 408 lb 15.32 oz Body Mass Index (BMI) 67.3 Physical Exam Narrative Physical Examination: General: Awake, alert, oriented x 3, fatigued appearing, uncomfortable appearing, cooperative, seated upright in the ED bed. Skin: Normal color, normal turgor, no icterus, no cyanosis except for significant bilateral lower extremity venous stasis skin changes, chronic significant edema pedal to proximal stratton, erythematous lichenified skin noted, bilateral venous stasis blisters with wounds with seepage, R> L with odor associated and increased erythema to the focused RLE. HEENT: AT/NC, EOMI, PERRLA, MMM, no carotid bruits, unable to discern JVD given thickened neck. Lungs: Significantly diminished, greater bases, mildly increased respiratory rate but no distress, no appreciated rales, rhonchi or wheezing. Heart: Regular rate with regular rhythm; no gallop, rub audible. Abdomen: Soft, morbidly obese, NTTP, distant BS, difficult to discern distentionand HSM given habitus. Extremities: No cyanosis, no clubbing, see skin. Neurological: Awake, alert, oriented as noted, cognitive function intact, pupilsequally reactive tolight and accommodation, cranial nerves grossly normal, moving all 4 extremities, no focal deficits, strength severely globally decreased secondary to acute presentation complaints, habitus underlying comorbidities. Psychiatric: Affect appears fatigued, uncomfortable noting discomfort to bilateral lower extremities, no acute evidence of depressive or anxiety feelingsbut does have underlying history. Results Lab / Micro Data 08/16/25 19:30 08/16/25 19:30 Labs: Laboratory Results - last 24 hr 08/16/25 19:30: WBC 9.4, RBC 3.26 L, Hgb 9.2 L, Hct 29.6 L, MCV 90.8, MCH 28.2, MCHC 31.1 L, RDW Std Deviation 45.8 H, RDW Coeff of Darrion 13.7, Plt Count 254, MPV10.5, Immature Gran % (Auto) 0.600, Neut % (Auto) 72.2 H, Lymph % (Auto) 20.4, Defiance % (Auto) 4.1, Eos % (Auto) 2.0, Baso % (Auto) 0.7, Absolute Neuts (auto) 6.8, Absolute Lymphs (auto) 1.92, Nucleated RBC % 0, PT 14.3, INR 1.1, APTT 29.8, Sodium 134, Potassium 3.8, Chloride 90 L, Carbon Dioxide 30.0, Anion Gap 14, BUN 32 H, Creatinine 1.07, Estim Creat Clear Calc 110.03, Est GFR (MDRD) Non-Af 64, BUN/Creatinine Ratio 29.7 H, Glucose 525 H*, Lactic Acid 1.9, Calcium8.2, Total Bilirubin 0.23, AST 24, ALT 23, Alkaline Phosphatase 81, Tro ponin T High Sens 37 H, NT pro BNP II 163, Total Protein 6.7, Albumin 3.5, Globulin 3.2,Albumin/Globulin Ratio 1.1 Imaging Radiology Impression Chest X-Ray 08/16/25 19:05 IMPRESSION: Cardiomegaly with vascular congestion. No airspace consolidation or pleural effusions. Reading Location: [facility] Assessment & Plan Assessment/Plan (1) Cellulitis of leg: QUALIFIERS: Laterality: left Qualified Code(s): L03.116 - Cellulitis of left lower limb PLAN: Plan The patient is a 50 y/o F w/ PMHx: Morbid obesity, Chronic anemia/iron deficiency anemia, CKD stageII versus III, uncertain, HFpEF, COPD w/ Chronic Hypoxic and Hypercapnic Respiratory Failure (4L NC), LOGAN on BIPAP, HTN, HLD, GERD, Anxiety and Depression, Former Tobacco use, Diabetes mellitus type II withchronic neuropathy, Hx VTE who presents to the [facility] ED on 08/16/2025 with history of increasing edema to the lower extremity, dyspnea worsewith exertion with drainage to the right lower extremity and redness with subjective fever and chills noting that the edema to the right has been greater with notable orthopnea concurrently with some admission that she has not been co mpliant intermittently with her PAP therapy prompting eventual ED evaluation. #1. Acute right anterior mid lower extremity cellulitis (no obvious abscess) with seeping stasis wounds BL, R>L, complicated by underlying bilateral lower extremity venous stasis dermatitis with #2 as noted: Will admit to PCU, will maintain on IV Vanco and Unasyn, pending wound Cx per ED and will also request wound MRSA PCR, plan repeat CBC in AM, continue affected extremity elevation above heart when seated and in bed, monitor erythema outline with VS checks, continue home Eliquis regimen, if able to tolerate will place neck tushar wraps with lower extremity elevation, requested procalcitonin, diuresis to assist alsoas noted. #2. Questionable Acute Decompensated HFpEF with indeterminate cardiac enzymes suspected secondary to demand: Will maintain on cardiac telemetry obtain cardiacenzyme series, obtain serial EKGs, continue IV lasix diuresis as this will also help with #1, monitor I/Os, maintain on intake restriction, continue medical therapy, obtain TSH and magnesium level. Most recent echo noted 11/12/2024 with EF 55% with no evidence of diastolic dysfunction thus will not repeat. Complicates #1, will maintain snug tushar wraps with lower extremity elevation if able to tolerate. BiPAP as needed with naps and nightly encouraged strongly. PT/OT/case management consulted for discharge planning. #3. Diabetes mellitus type II w/ Hyperglycemia with chronic neuropathy: Likely hyperglycemia is associated with acute presentation as noted, hemoglobin A1c requested with last noted 11/10/24 10.4%, hold oral home regimen, continue home insulin regimen with adjustments as needed although currently attempting to clarify her home long-acting specific dosing, ADA diet, accu checks w/ ISS, continue home pregabalin regimen. #4. Chronic Kidney Disease Stage II based on previous GFR trending but has vacillated and sometimesbeen consistent with stage III but unclear if this is acutely, will discern further with further lab assessment: Admission BUN/Cr 32/1.07, GFR 64, GFR 45, baseline renal function primarily 0.8-1.1, GFR has certainly vacillated thus unclear if stage II versus stage III, will continue totrend to further elucidate. #5. Chronic normocytic anemia/iron deficiency anemia: Admission hemoglobin 9.2,MCV 90.8, baseline hemoglobin primarily recently 8-9 range, we will continue to trend CBC, continue iron supplementation. #6. Chronic COPD with chronic hypoxic and hypercarbic respiratory failure (4L NC) with allergic rhinitis: Will maintain on oxygen supplementation with wean astolerated to home oxygen 4 L nasal cannula supplementation, continue ATC budesonide therapy, PRN albuterol, HOB, IS parameters. Temporally holding loratadine regimen. #7. Anxiety and depression: We will continue patient home lorazepam and duloxetine home regimen. #8. Hypertension: Continue home regimen including diltiazem, lisinopril, metoprolol, Lasix IV as noted, PRN hydralazine. #9. Hyperlipidemia: Continue home statin and fenofibrate regimen. FLP in AM. #10. History of VTE: We will continue patient home apixaban regimen. #11. GERD: We will continue patient home PPI. #12. LOGAN: Will place on BiPAP nightly, encourage compliance. #13. Former Tobacco Abuse: Encouraged continued tobacco cessation, notes quit for approximately 1 year. #14. DVT prophylaxis: Eliquis. #15. CODE status: Patient JAKE is her daughter and living will is in place. Full Code status. Charges/Coding Visit Charges Inpatient E&M: 41734 Init Hosp L3 08/16/25 2132 Cosigner Signature (if applicable): CC: Dr. Olamide Mas MD; Dr. Delmy Solorzano MD~ Signed [facility]09-16-2025 Discharge summary [facility] Medical Records Department [address] [place] [address] Emergency Department Summary 08/16/25 MR#: [id number] Acct: [id number] Name: MACARIO WALLACE Rep #:[id number] : 1975 50 From: Jozef Kaiser MD PCP: Dr. Delmy Solorzano MD Status:REG ER Location: ED HPI History of Present Illness Chief Complaint: Edema Detail of Chief Complaint: Edema, dyspnea on exertion, chills and subjective fever and drainage RLE Informant: patient Onset/Context/Timing Onset: Days Context: Gradual Onset Timing: Continuous Quality: Swelling of both lower extremities right left greater than left, REED Location: Cardiovascular and Derm Current Severity: Mild Maximum Severity: Moderate Worsened by: Activity and supine position Relieved by: Remaining still and sleeping with 3 pillows Associated Symptoms Associated Symptoms: Subjective fever with chills and drainage from RLE Narrative Narrative: Patient is a 50-year-old woman. She presents because of multiple symptoms. Sheis complaining of dyspnea on exertion which she has a past medical history of. She has history of respiratory failure with hypoxemia. She does have obstructive sleep apnea. She is not compliant at all times with her CPAP device. Patient complains of subjective fever with chills. She denies headache, visual, ocular auditory symptoms. She denies chest pressure, tightness or heaviness. She does endorse 3 pillow orthopnea and dyspnea on exertion. She also endorses increased swelling of her lower extremities. There is drainage from the right. She has noted blisters onthe left. She denies symptoms of claudication. She has been a type II diabeticfor 20+ years. Has been on insulin for 5 years. Prior similar symptoms: Yes Recent Illness/Hospitalization: No PFSH PFSH Medical History MRSA cellulitis of left foot Cellulitis of leg Arthritis Non-smoker CHF (congestive heart failure) History of diabetes mellitus Anemia Hypoxia Morbid obesity Venous stasis dermatitis of both lower extremities BMI 60.0-69.9, adult Noncompliance with CPAP treatment Acute on chronic respiratory failure with hypoxia and hypercapnia Perianal abscess Type 2 diabetes mellitus with hyperglycemia Contusion of knee, right Chronic diastolic (congestive) heart failure Depression Diabetes GERD (gastroesophageal reflux disease) BiPAP (biphasic positive airway pressure) dependence Sleep apnea On home oxygen therapy Smoker COPD (chronic obstructive pulmonary disease) Hypertension Congestive heart failure KERRY (acute kidney injury) Chronic respiratory failure with hypoxia Opiate overdose History of left heart catheterization (LHC) (~01/05/19) Type 2 diabetes mellitus Old myocardial infarction Essential hypertension Restrictive lung disease secondary to obesity Dyspnea on exertion Pulmonary embolism Hidradenitis Non-healing open wound of left groin Open wound of vulva with complication Necrotizing soft tissue infection Abscess of vulva Soft tissue abscess of inguinal region Respiratory failure with hypoxia Abscess Hyperglycemia due to type 2 diabetes mellitus NSTEMI (non-ST elevated myocardial infarction) Tobacco abuse Hyperlipidemia Morbid obesity History of MRSA infection Anxiety 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 Home Medications ?Medication ?Instructions ?Recorded ?Last Taken ?Type multivit-iron 18 mg-folic acid 400 1 ea PO DAILY suppl ement 03/26/17 07/14/23 History mcg-calcium 500 mg-minerals tablet omeprazole 40 mg capsule,delayed 40 mg PO DAILY GERD 0 12/15/18 07/14/23 History release loratadine 10 mg tablet 10 mg PO DAILY PRN Allergies 03/01/20 07/14/23 History apixaban 5 mg tablet 5 mg PO BID blood thinner 07/14/23 History diltiazem HCl 120 mg 120 mg PO DAILY heart rate 0 08/20/20 07/14/23 History capsule,extended release 24 hr lisinopril 10 mg tablet 10 mg PO DAILY blood pressur e 03/26/21 07/14/23 History metformin 500 mg tablet,extended 1,000 mg PO DAILY richard betes 03/26/21 07/14/23 History release 24 hr metoprolol succinate 25 mg 25 mg PO DAILY blood pressu re 03/26/21 07/14/23 History tablet,extended release 24 hr atorvastatin 80 mg tablet 80 mg PO QHS cholesterol 09/2107/14/23 History furosemide 40 mg tablet 80 mg PO DAILY diuretic 09/0107/14/23 History albuterol sulfate 2.5 mg/3 mL 2.5 mg inhalation Q4H GA N SOB 12/09/22 07/10/23 History (0.083 %) solution for nebulization fenofibrate nanocrystallized 145 145 mg PO DAILY MACIEL STEROL 12/09/22 07/14/23 History mg tablet insulin glargine U-300 conc 300 104 unit subcut BID di abetes 07/14/23 07/13/23 History unit/mL (3 mL) subcutaneous pen (Toujeo Max U-300 SoloStar) semaglutide 1 mg/dose (4 mg/3 mL) 1 mg subcut .1XW richard betes 07/14/23 07/13/23 History subcutaneous pen injector (Ozempic) metolazone 2.5 mg tablet 2.5 mg PO .every /thurs #8 tabs 07/15/23 Unknown Rx oxycodone-acetaminophen 5 mg-325 1 tab PO Q6H PRN pain 3 days #12 01/15/24 Unknown Rx mg tablet (Percocet) tabs potassium chloride 20 mEq See Rx Instructions .Route 0 08/05/24 Unknown Rx tablet,extended release(part/cryst) .COMPLEX #60 TABLE TS duloxetine 60 mg capsule,delayed 60 mg PO DAILY Unknown History release ergocalciferol (vitamin D2) 1,250 1,250 mcg PO QWEEK 1 01/10/24 Unknown History mcg (50,000 unit) capsule (Vitamin D2) ferrous sulfate 325 mg (65 mg 325 mg PO DAILY 11/09/24 Unknown History iron) tablet (FeroSul) lorazepam 1 mg tablet 1 mg PO TID 11/09/24 Unknown History cephalexin 500 mg capsule 500 mg PO TID #14 caps 11/12 Unknown Rx doxycycline monohydrate 100 mg 100 mg PO BID 5 days #1 0 caps 11/12/24 Unknown Rx capsule methocarbamol 750 mg tablet 1,500 mg PO TID muscle spa sm 08/16/25 Unknown History oxycodone 15 mg tablet 15 mg PO Q6H PRN PRN pain Unknown History pregabalin 150 mg capsule 150 mg PO TID 08/16/25 Unkno wn History semaglutide 2 mg/dose (8 mg/3 mL) mg subcut 08/16/25 U nknown History subcutaneous pen injector (Ozempic) Allergy/AdvReac Type Severity Reaction Status Date / Time cyclobenzaprine HCl (From Allergy Hives Verified 08/16/25 18:21 Flexeril) venlafaxine (From Effexor) AdvReac Severe hives Verified 08/16/25 18:21 Family History Father CVA (cerebral vascular accident) Heart disease Diabetes Mother Thyroid disorder Surgical History History of delivery H/O arthroscopic knee surgery History of cholecystectomy Social History household members: none Smoking Status: Current some day smoker tobacco type: cigarettes and e-cigarettes how long ago did patient quit smokin PPD smoker second hand exposure: Yes alcohol intake: never substance use type: does not use caffeine: Yes Type: carbonated beverages Number of servings: 1 and coffee Number of servings: 1 ROS ROS ED Constitutional Constitutional ED: Reports chills, fever(s) and subjective; Denies sweats Eyes Eyes: Denies blurry vision or change in vision ENT ENT ED: Denies ear pain or rhinorrhea Cardiovascular Cardiovascular: Denies chest pain or palpitations Respiratory/Chest Respiratory/Chest: Denies cough, dyspnea or dyspnea on exertion Gastrointestinal Gastrointestinal: Reports nausea; Denies abdominal pain, constipation or vomiting Genitourinary Genitourinary ED: Reports urinary frequency; Denies dysuria or hematuria Musculoskeletal Musculoskeletal: Denies arthralgias or myalgias Integumentary Reports rash Neurologic Neurologic: Reports weakness; Denies headache(s) or paresthesias Endocrine Endocrinology: Denies cold intolerance or heat intolerance Hematologic/Lymphatic Hematologic/Lymphatic: Reports systems reviewed and no addt'l complaints, exceptas documented EXAM Physical Exam Const Vital Signs: 08/16/25 18:21 08/16/25 19:24 08/16/25 20:00 Temperature 98.1 F 98.6 F 98.9 F Temperature Source Temporal Oral Oral Pulse Rate 99 90 91 Respiratory Rate 20 H 17 14 Blood Pressure 156/71 H 122/59 H 144/69 H Blood Pressure Mean 99 80 94 Pulse Ox 96 96 99 Oxygen Delivery Method Nasal Cannula Room Air Nasal Cannula Oxygen Flow Rate (L/min) 5 5 Positive well nourished and well developed Constitutional Narrative: Blood pressure is elevated. She is not hypoxic. General Appearance ED: well developed HEENT Reports dry mucous membranes HEENT Narrative: Head is atraumatic, cephalic. Ears are normal. Nares are patent. Patient has floppy eye eyelid syndrome. Posterior pharynx is normal. Mouth ED: Yes dry mucous membranes Mouth: dry mucous membranes Eyes PERRL and EOMs intact bilaterally General Eye ED: Negative for pale conjunctiva or scleral icterus Neck no lymphadenopathy and supple Neck Narrative: Unable to assess for JVD due to body habitus. Chest Wall inspection of chest normal and palpation of chest normal Resp normal respiratory effort and clear to auscultation bilaterally Cardio regular rate, regular rhythm, S1 normal heart sound, S2 normal heart sound and no murmurs GI normal to inspection, nondistended, normoactive bowel sounds, non-tender, non- distended and no masses; Negative for hepatosplenomegaly GI Narrative: Exam limited due to body habitus. Back/Spine Back/Spine Narrative: Inspection of the back is normal. Extremity Extremity Narrative: Patient has venous stasis dermatitis bilaterally. Patient has pustular drainagenoted from the anterior mid right leg. The area is warm and slightly indurated. Patient's great toenail spontaneously fell off. Probably due to mild infection. Neuro oriented x3, CN's II-XII intact bilaterally and No no sensory deficits noted Sensorium / Orientation: alert Psych mental status grossly normal Skin Skin Narrative: Described under the extremity portion of the EMR MDM MDM MDM Narrative Medical decision making narrative: Differential diagnosis includes CHF, chronic dyspnea on exertion due to BMI of 67, pneumonia and cardiac ischemia. Will obtain EKG, troponin, BNP. Patient has a infected right leg with mucopurulent drainage. Culture was obtained. Patient was started on antibiotics Unasyn and vancomycin since she has prior history of MRSA. Electrolyte panel was obtained as well as CBC to assess for endorgan dysfunction. Lab Data Attestation: I reviewed the patient's lab results. Lab results narrative: White count is normal with an H&H 9.2 and 29.6 with normal indices. Comprehensive metabolic panel reveals an elevated BUN to creatinine ratio of 29:1. Blood sugar is elevated 525 with a normal CO2 anion gap. Lactate is normal. Liver enzymes are normal. Troponin is slight elevated 37. This is non diagnostic. 2-hour has been ordered. Labs: Laboratory Results - last 24 hr 08/16/25 19:30 WBC 9.4 RBC 3.26 L Hgb 9.2 L Hct 29.6 L MCV 90.8 MCH 28.2 MCHC 31.1 L RDW Std Deviation 45.8 H RDW Coeff of Darrion 13.7 Plt Count 254 MPV 10.5 Immature Gran % (Auto) 0.600 Neut % (Auto) 72.2 H Lymph % (Auto) 20.4 Defiance % (Auto) 4.1 Eos % (Auto) 2.0 Baso % (Auto) 0.7 Absolute Neuts (auto) 6.8 Absolute Lymphs (auto) 1.92 Nucleated RBC % 0 PT 14.3 INR 1.1 APTT 29.8 Sodium 134 Potassium 3.8 Chloride 90 L Carbon Dioxide 30.0 Anion Gap 14 BUN 32 H Creatinine 1.07 Estim Creat Clear Calc 110.03 Est GFR (MDRD) Non-Af 64 BUN/Creatinine Ratio 29.7 H Glucose 525 H* Lactic Acid 1.9 Calcium 8.2 Total Bilirubin 0.23 AST 24 ALT 23 Alkaline Phosphatase 81 Troponin T High Sens 37 H NT pro BNP II 163 Total Protein 6.7 Albumin 3.5 Globulin 3.2 Albumin/Globulin Ratio 1.1 Radiography Chest X-Ray - ED: 2 View, Read by ED Physician (There is no obvious infiltrate, effusion. I do not appreciate cephalization or curly B-lines.), No Acute Disease, Chronic Changes and Cardiomegaly Diagnostic Testing: Clinical Impression(s) from Imaging Studies Chest X-Ray 08/16/25 19:05 IMPRESSION: Cardiomegaly with vascular congestion. No airspace consolidation or pleural effusions. Reading Location: [facility] The radiology report was reviewed. Agree with cardiomegaly disagree with vascular congestion. Furthermore patient has no rales and BNP is normal. EKG Initial EKG: Attestation: I personally reviewed and interpreted this EKG as follows: Interpretation: Sinus Rhythm (Rate is 93. GA interval is 140 ms. Cures duration 86 ms her QT duration Aleks 68 ms. Wilson normal. EKG is normal.) Management Discussion w/another healthcare provider: Hospitalist (Spoke with Dr. Mas. Full admission PCU.) Treatment and Re-Evaluation :: Patient received 15 units of insulin for her blood sugar 525. The hospitalist was paged for admission. Discharge Plan Dx/Rx/DC Orders Clinical Impression: Cellulitis and abscess of right leg, Morbid obesity, Type 2 diabetes mellitus with hyperglycemia, Restrictive lung disease secondary to obesity, Chronic respiratory failure with hypoxia, Acute prerenal azotemia, Chronic venous stasis dermatitis, 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, Elevated troponin Disposition Disposition: [facility] What to do if you have Problems For any increased pain, shortness of breath, bleeding, nausea or vomiting, chestpain, or any unexpected problems, contact your Primary Care Provider. Call [facility] ([phone]) or report tothe closest Emergency Room. Call 911 if necessary. 08/16/252106 Cosigner Signature (if applicable): CC: Dr. Delmy Solorzano MD ~ Signed [facility]09-16-2025 Radiology Diagnostic study note [facility] Imaging Services [address] [place], [place] [address] Chest PA and Lateral MR#: [id number] Acct: [id number] Name: MACARIO WALLACE Rep #: [id number] : 1975 F 50 From: Sebas Morrissey MD PCP: Dr. Delmy Solorzano MD Status: REG ER Study:Chest PA and Lateral Date of Exam: 08/16/25 Exam# [id number] Ordering Dr: Savanna Kaiser MD PROCEDURE: CHEST PA AND LATERAL 08/16/2025 REASON FOR EXAM: REED, ORTHOPNEA, WHEEZING TECHNIQUE: Procedure Code: RADCXR Modality: DX Procedure: CHEST PA AND LATERAL COMPARISON: 11/09/2024 FINDINGS: Cardiomegaly with vascular congestion. No airspace consolidation or pleural effusion. No pneumothorax. Mild multilevel degenerative changes of the spine. Unremarkable soft tissues. RAD/Chest PA and Lateral IMPRESSION: Cardiomegaly with vascular congestion. No airspace consolidation or pleural effusions. Reading Location: [facility] CC: Dr. Delmy Solorzano MD; Dr. Jozef Kaiser MD ~ 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: Signed [facility]09-16-2025 Discharge summary Author Jozef Kaiser [facility] Note Date/Time August 16, 2025 9:07pm [facility] Medical Records Department [address] [place] [address] Emergency Department Summary 08/16/25 MR#: [id number] Acct: [id number] Name: MACARIO WALLACE Rep #:[id number] : 1975 50 From: Jozef Kaiser MD PCP: Dr. Delmy Solorzano MD Status:REG ER Location: ED HPI History of Present Illness Chief Complaint: Edema Detail of Chief Complaint: Edema, dyspnea on exertion, chills and subjective fever and drainage RLE Informant: patient Onset/Context/Timing Onset: Days Context: Gradual Onset Timing: Continuous Quality: Swelling of both lower extremities right left greater than left, REED Location: Cardiovascular and Derm Current Severity: Mild Maximum Severity: Moderate Worsened by: Activity and supine position Relieved by: Remaining still and sleeping with 3 pillows Associated Symptoms Associated Symptoms: Subjective fever with chills and drainage from RLE Narrative Narrative: Patient is a 50-year-old woman. She presents because of multiple symptoms. Sheis complaining of dyspnea on exertion which she has a past medical history of. She has history of respiratory failure with hypoxemia. She does have obstructive sleep apnea. She is not compliant at all times with her CPAP device. Patient complains of subjective fever with chills. She denies headache, visual, ocular auditory symptoms. She denies chest pressure, tightness or heaviness. She does endorse 3 pillow orthopnea and dyspnea on exertion. She also endorses increased swelling of her lower extremities. There is drainage from the right. She has noted blisters onthe left. She denies symptoms of claudication. She has been a type II diabeticfor 20+ years. Has been on insulin for 5 years. Prior similar symptoms: Yes Recent Illness/Hospitalization: No PFSH PFSH Medical History MRSA cellulitis of left foot Cellulitis of leg Arthritis Non-smoker CHF (congestive heart failure) History of diabetes mellitus Anemia Hypoxia Morbid obesity Venous stasis dermatitis of both lower extremities BMI 60.0-69.9, adult Noncompliance with CPAP treatment Acute on chronic respiratory failure with hypoxia and hypercapnia Perianal abscess Type 2 diabetes mellitus with hyperglycemia Contusion of knee, right Chronic diastolic (congestive) heart failure Depression Diabetes GERD (gastroesophageal reflux disease) BiPAP (biphasic positive airway pressure) dependence Sleep apnea On home oxygen therapy Smoker COPD (chronic obstructive pulmonary disease) Hypertension Congestive heart failure KERRY (acute kidney injury) Chronic respiratory failure with hypoxia Opiate overdose History of left heart catheterization (LHC) (~01/05/19) Type 2 diabetes mellitus Old myocardial infarction Essential hypertension Restrictive lung disease secondary to obesity Dyspnea on exertion Pulmonary embolism Hidradenitis Non-healing open wound of left groin Open wound of vulva with complication Necrotizing soft tissue infection Abscess of vulva Soft tissue abscess of inguinal region Respiratory failure with hypoxia Abscess Hyperglycemia due to type 2 diabetes mellitus NSTEMI (non-ST elevated myocardial infarction) Tobacco abuse Hyperlipidemia Morbid obesity History of MRSA infection Anxiety 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 Home Medications ?Medication ?Instructions ?Recorded ?Last Taken ?Type multivit-iron 18 mg-folic acid 400 1 ea PO DAILY suppl ement 03/26/17 07/14/23 History mcg-calcium 500 mg-minerals tablet omeprazole 40 mg capsule,delayed 40 mg PO DAILY GERD 0 12/15/18 07/14/23 History release loratadine 10 mg tablet 10 mg PO DAILY PRN Allergies 03/01/20 07/14/23 History apixaban 5 mg tablet 5 mg PO BID blood thinner 07/14/23 History diltiazem HCl 120 mg 120 mg PO DAILY heart rate 0 08/20/20 07/14/23 History capsule,extended release 24 hr lisinopril 10 mg tablet 10 mg PO DAILY blood pressur e 03/26/21 07/14/23 History metformin 500 mg tablet,extended 1,000 mg PO DAILY richard betes 03/26/21 07/14/23 History release 24 hr metoprolol succinate 25 mg 25 mg PO DAILY blood pressu re 03/26/21 07/14/23 History tablet,extended release 24 hr atorvastatin 80 mg tablet 80 mg PO QHS cholesterol 09/2107/14/23 History furosemide 40 mg tablet 80 mg PO DAILY diuretic 09/0107/14/23 History albuterol sulfate 2.5 mg/3 mL 2.5 mg inhalation Q4H GA N SOB 12/09/22 07/10/23 History (0.083 %) solution for nebulization fenofibrate nanocrystallized 145 145 mg PO DAILY MACIEL STEROL 12/09/22 07/14/23 History mg tablet insulin glargine U-300 conc 300 104 unit subcut BID di abetes 07/14/23 07/13/23 History unit/mL (3 mL) subcutaneous pen (Toujeo Max U-300 SoloStar) semaglutide 1 mg/dose (4 mg/3 mL) 1 mg subcut .1XW richard betes 07/14/23 07/13/23 History subcutaneous pen injector (Ozempic) metolazone 2.5 mg tablet 2.5 mg PO .every /thurs #8 tabs 07/15/23 Unknown Rx oxycodone-acetaminophen 5 mg-325 1 tab PO Q6H PRN pain 3 days #12 01/15/24 Unknown Rx mg tablet (Percocet) tabs potassium chloride 20 mEq See Rx Instructions .Route 0 08/05/24 Unknown Rx tablet,extended release(part/cryst) .COMPLEX #60 TABLE TS duloxetine 60 mg capsule,delayed 60 mg PO DAILY Unknown History release ergocalciferol (vitamin D2) 1,250 1,250 mcg PO QWEEK 1 01/10/24 Unknown History mcg (50,000 unit) capsule (Vitamin D2) ferrous sulfate 325 mg (65 mg 325 mg PO DAILY 11/09/24 Unknown History iron) tablet (FeroSul) lorazepam 1 mg tablet 1 mg PO TID 11/09/24 Unknown History cephalexin 500 mg capsule 500 mg PO TID #14 caps 11/12 Unknown Rx doxycycline monohydrate 100 mg 100 mg PO BID 5 days #1 0 caps 11/12/24 Unknown Rx capsule methocarbamol 750 mg tablet 1,500 mg PO TID muscle spa sm 08/16/25 Unknown History oxycodone 15 mg tablet 15 mg PO Q6H PRN PRN pain Unknown History pregabalin 150 mg capsule 150 mg PO TID 08/16/25 Unkno wn History semaglutide 2 mg/dose (8 mg/3 mL) mg subcut 08/16/25 U nknown History subcutaneous pen injector (Ozempic) Allergy/AdvReac Type Severity Reaction Status Date / Time cyclobenzaprine HCl (From Allergy Hives Verified 08/16/25 18:21 Flexeril) venlafaxine (From Effexor) AdvReac Severe hives Verified 08/16/25 18:21 Family History Father CVA (cerebral vascular accident) Heart disease Diabetes Mother Thyroid disorder Surgical History History of delivery H/O arthroscopic knee surgery History of cholecystectomy Social History household members: none Smoking Status: Current some day smoker tobacco type: cigarettes and e- cigarettes how long ago did patient quit smokin PPD smoker second hand exposure: Yes alcohol intake: never substance use type: does not use caffeine: Yes Type: carbonated beverages Number of servings: 1 and coffee Number of servings: 1 ROS ROS ED Constitutional Constitutional ED: Reports chills, fever(s) and subjective; Denies sweats Eyes Eyes: Denies blurry vision or change in vision ENT ENT ED: Denies ear pain or rhinorrhea Cardiovascular Cardiovascular: Denies chest pain or palpitations Respiratory/Chest Respiratory/Chest: Denies cough, dyspnea or dyspnea on exertion Gastrointestinal Gastrointestinal: Reports nausea; Denies abdominal pain, constipation or vomiting Genitourinary Genitourinary ED: Reports urinary frequency; Denies dysuria or hematuria Musculoskeletal Musculoskeletal: Denies arthralgias or myalgias Integumentary Reports rash Neurologic Neurologic: Reports weakness; Denies headache(s) or paresthesias Endocrine Endocrinology: Denies cold intolerance or heat intolerance Hematologic/Lymphatic Hematologic/Lymphatic: Reports systems reviewed and no addt'l complaints, exceptas documented EXAM Physical Exam Const Vital Signs: 08/16/25 18:21 08/16/25 19:24 08/16/25 20:00 Temperature 98.1 F 98.6 F 98.9 F Temperature Source Temporal Oral Oral Pulse Rate 99 90 91 Respiratory Rate 20 H 17 14 Blood Pressure 156/71 H 122/59 H 144/69 H Blood Pressure Mean 99 80 94 Pulse Ox 96 96 99 Oxygen Delivery Method Nasal Cannula Room Air Nasal Cannula Oxygen Flow Rate (L/min) 5 5 Positive well nourished and well developed Constitutional Narrative: Blood pressure is elevated. She is not hypoxic. General Appearance ED: well developed HEENT Reports dry mucous membranes HEENT Narrative: Head is atraumatic, cephalic. Ears are normal. Nares are patent. Patient has floppy eye eyelid syndrome. Posterior pharynx is normal. Mouth ED: Yes dry mucous membranes Mouth: dry mucous membranes Eyes PERRL and EOMs intact bilaterally General Eye ED: Negative for pale conjunctiva or scleral icterus Neck no lymphadenopathy and supple Neck Narrative: Unable to assess for JVD due to body habitus. Chest Wall inspection of chest normal and palpation of chest normal Resp normal respiratory effort and clear to auscultation bilaterally Cardio regular rate, regular rhythm, S1 normal heart sound, S2 normal heart sound and no murmurs GI normal to inspection, nondistended, normoactive bowel sounds, non-tender, non-distended and no masses; Negative for hepatosplenomegaly GI Narrative: Exam limited due to body habitus. Back/Spine Back/Spine Narrative: Inspection of the back is normal. Extremity Extremity Narrative: Patient has venous stasis dermatitis bilaterally. Patient has pustular drainagenoted from the anterior mid right leg. The area is warm and slightly indurated. Patient's great toenail spontaneously fell off. Probably due to mild infection. Neuro oriented x3, CN's II-XII intact bilaterally and No no sensory deficits noted Sensorium / Orientation: alert Psych mental status grossly normal Skin Skin Narrative: Described under the extremity portion of the EMR MDM MDM MDM Narrative Medical decision making narrative: Differential diagnosis includes CHF, chronic dyspnea on exertion due to BMI of 67, pneumonia and cardiac ischemia. Will obtain EKG, troponin, BNP. Patient has a infected right leg with mucopurulent drainage. Culture was obtained. Patient was started on antibiotics Unasyn and vancomycin since she has prior history of MRSA. Electrolyte panel was obtained as well as CBC to assess for endorgan dysfunction. Lab Data Attestation: I reviewed the patient's lab results. Lab results narrative: White count is normal with an H&H 9.2 and 29.6 with normal indices. Comprehensive metabolic panel reveals an elevated BUN to creatinine ratio of 29:1. Blood sugar is elevated 525 with a normal CO2 anion gap. Lactate is normal. Liver enzymes are normal. Troponin is slight elevated 37. This is nondiagnostic. 2-hour has been ordered. Labs: Laboratory Results - last 24 hr 08/16/25 19:30 WBC 9.4 RBC 3.26 L Hgb 9.2 L Hct 29.6 L MCV 90.8 MCH 28.2 MCHC 31.1 L RDW Std Deviation 45.8 H RDW Coeff of Darrion 13.7 Plt Count 254 MPV 10.5 Immature Gran % (Auto) 0.600 Neut % (Auto) 72.2 H Lymph % (Auto) 20.4 Defiance % (Auto) 4.1 Eos % (Auto) 2.0 Baso % (Auto) 0.7 Absolute Neuts (auto) 6.8 Absolute Lymphs (auto) 1.92 Nucleated RBC % 0 PT 14.3 INR 1.1 APTT 29.8 Sodium 134 Potassium 3.8 Chloride 90 L Carbon Dioxide 30.0 Anion Gap 14 BUN 32 H Creatinine 1.07 Estim Creat Clear Calc 110.03 Est GFR (MDRD) Non-Af 64 BUN/Creatinine Ratio 29.7 H Glucose 525 H* Lactic Acid 1.9 Calcium 8.2 Total Bilirubin 0.23 AST 24 ALT 23 Alkaline Phosphatase 81 Troponin T High Sens 37 H NT pro BNP II 163 Total Protein 6.7 Albumin 3.5 Globulin 3.2 Albumin/Globulin Ratio 1.1 Radiography Chest X-Ray - ED: 2 View, Read by ED Physician (There is no obvious infiltrate, effusion. I do not appreciate cephalization or curly B-lines.), No Acute Disease, Chronic Changes and Cardiomegaly Diagnostic Testing: Clinical Impression(s) from Imaging Studies Chest X-Ray 08/16/25 19:05 IMPRESSION: Cardiomegaly with vascular congestion. No airspace consolidation or pleural effusions. Reading Location: [facility] The radiology report was reviewed. Agree with cardiomegaly disagree with vascular congestion. Furthermore patient has no rales and BNP is normal. EKG Initial EKG: Attestation: I personally reviewed and interpreted this EKG as follows: Interpretation: Sinus Rhythm (Rate is 93. GA interval is 140 ms. Cures duration 86 ms her QT duration Aleks 68 ms. Wilson normal. EKG is normal.) Management Discussion w/another healthcare provider: Hospitalist (Spoke with Dr. Mas. Full admission PCU.) Treatment and Re-Evaluation :: Patient received 15 units of insulin for her blood sugar 525. The hospitalist was paged for admission. Discharge Plan Dx/Rx/DC Orders Clinical Impression: Cellulitis and abscess of right leg, Morbid obesity, Type 2 diabetes mellitus with hyperglycemia, Restrictive lung disease secondary to obesity, Chronic respiratory failure with hypoxia, Acute prerenal azotemia, Chronic venous stasis dermatitis, 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, Elevated troponin Disposition Disposition: [facility] What to do if you have Problems For any increased pain, shortness of breath, bleeding, nausea or vomiting, chestpain, or any unexpected problems, contact your Primary Care Provider. Call [facility] ([phone]) or report to the closest Emergency Room. Call 911 if necessary. 08/16/252106 <Electronically signed by Jozef Kaiser MD> Cosigner Signature (if applicable): CC: Dr. Delmy Solorzano MD ~ Signed [facility] Work Phone: [phone] [facility] Medical Records Department [address] [place] [address] Discharge Summary 11/12/24 1614 MR#: [id number] Acct: [id number] Name: MACARIO WALLACE Rep #: [id number] : 1975 49 From: Ling Neville MD PCP: Dr. 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 BL LE CELLULITIS Diagnosis Discharge Diagnosis (1) Acute on chronic hypoxic respiratory failure: Status: Chronic Code(s): J96.21 - Acute and chronic respiratory failure with hypoxia (2) Cellulitis of leg: Status: Acute Code(s): L03.119 - Cellulitis of unspecified part of limb Qualifiers: Laterality: left Qualified Code(s): L03.116 - Cellulitis of left lower limb Plan #MRSA cellulitis of the left foot * wound cultures positive for Staph aureus * on IV vancomycin and ceftriaxone * wound are on board * ID reviewed patient and recommended 2D echo. * #Hypoxia in the setting of chronic hypoxic respiratory failure * She says she usually wears 6 L of oxygen both documented that she usually wears 4 L of oxygen. She was on 2 L of oxygen this morning. * on IV antibiotics * breathing treatments with bronchodilators. * titrate oxygen to maintain sats >90% * 2D echo ordered * #Hyponatremia: improving. On lasix. #COPD: * not in exacerbation. Breathing treatment with bronchodilators. Titrate oxygen to maintain sats >90%. * #Benign essential hypertension * on lisinopril and metoprolol * #Type 2 diabetes mellitus * Poorly controlled. A1c is 10.4. On Lantus 10 units twice daily. Insulin sliding scale. Accu- Cheks ACHS. * * #Hyperlipidemia: on statin and fenofibrate #GERD: on PPI #LOGAN; on BIPAP qhs #Histoyr of DVT: on eliquis #Anxiety and depression: Stable clinically DVT prophylaxis: On Eliquis Medications at Discharge Home Medications multivit-iron 18 mg-folic acid 400 mcg-calcium 500 mg-minerals tablet 1 ea PO DAILY supplement 03/26/17 omeprazole 40 mg capsule,delayed release 40 mg PO DAILY GERD 12/15/18 loratadine 10 mg tablet 10 mg PO DAILY PRN Allergies 03/01/20 apixaban 5 mg tablet 5 mg PO BID blood thinner 08/20/20 diltiazem HCl 120 mg capsule,extended release 24 hr 120 mg PO DAILY heart rate 08/20/20 lisinopril 10 mg tablet 10 mg PO DAILY blood pressure 03/26/21 metformin 500 mg tablet,extended release 24 hr 1,000 mg PO DAILY diabetes 03/26/21 metoprolol succinate 25 mg tablet,extended release 24 hr 25 mg PO DAILY blood pressure 03/26/21 atorvastatin 80 mg tablet 80 mg PO QHS cholesterol 02/07/22 furosemide 40 mg tablet 80 mg PO DAILY diuretic 09/22/22 insulin lispro 100 unit/mL subcutaneous pen (Humalog KwikPen (U-100) Insulin) 50 unit (0.5 mL) subcut TIDAC #0 mL 09/24/22 albuterol sulfate 2.5 mg/3 mL (0.083 %) solution for nebulization 2.5 mg inhalation Q4H PRN SOB 12/09/22 fenofibrate nanocrystallized 145 mg tablet 145 mg PO DAILY CHOLESTEROL 12/09/22 insulin glargine U-300 conc 300 unit/mL (3 mL) subcutaneous pen (Toujeo Max U- 300 SoloStar) 104 unit subcut BID diabetes 07/14/23 semaglutide 1 mg/dose (4 mg/3 mL) subcutaneous pen injector (Ozempic) 1 mg subcut .1XW diabetes 07/14/23 metolazone 2.5 mg tablet 2.5 mg PO .every tues/thurs #8 tabs 07/15/23 oxycodone-acetaminophen 5 mg-325 mg tablet (Percocet) 1 tab PO Q6H PRN pain 3 days #12 tabs 01/15/24 potassium chloride 20 mEq tablet,extended release(part/cryst) See Rx Instructions .Route .COMPLEX #60 TABLETS 08/05/24 duloxetine 60 mg capsule,delayed release 60 mg PO DAILY 11/09/24 ergocalciferol (vitamin D2) 1,250 mcg (50,000 unit) capsule (Vitamin D2) 1,250 mcg PO QWEEK 11/09/24 ferrous sulfate 325 mg (65 mg iron) tablet (FeroSul) 325 mg PO DAILY 11/09/24 lorazepam 1 mg tablet 1 mg PO TID 11/09/24 cephalexin 500 mg capsule 500 mg PO TID #14 caps 11/12/24 doxycycline monohydrate 100 mg capsule 100 mg PO BID 5 days #10 caps 11/12/24 Hospital Course Operations None Procedures 2-D Echocardiogram Summary of Care Provided Minutes Spent on Discharge: 55 Hospital Course: Patient is a 49-year-old female with past medical history as outlined was admitted through the ED on 11/09/2024 with complaint of shortness of breath which had been worsening for several days prior to admission. She usually wears oxygen at home and says usually will 4 to 6 L. She had a cough and was bringing up yellow and brow (more content not included)...[facility]09-05-2023 Miscellaneous Notes* Telephone Encounter - Lula Cameron LPN - 08/05/2023 4:16 PM EDT Pt called in & was notified of message from Dr Oreilly, pt stated understanding. Lula Cameron LPN * Telephone Encounter - Keyonna Gross LPN - 08/05/2023 4:02 PM EDT 2nd attempt to reach pt by phone without success. Try later. Keyonna Gross LPN * Telephone Encounter - Keyonna Gross LPN - 08/05/2023 8:23 AM EDT 1st attempt to reach pt. No voicemail set up. Try later. Keyonna Gross LPN * Telephone Encounter - Panfilo Oreilly MD - 08/01/2023 11:45 AM EDT Patient discharged from our practice as of 07/25. Does she have follow up with new PCP scheduled? Ifso, will give refills to get to that appointment. * Telephone Encounter - Keyonna Gross LPN - 08/01/2023 9:39 AM EDT Griselda Gupta calling in refills for the following. Pt saw Dr. Oreilly last but is not listed as pcp. Patient has been identified by name and date of : Yes, Provider no pcp listed Date 08/01/23 Time9:41 am Pharmacy phones for refill(s): Requested Prescriptions Pending Prescriptions Disp Refills Insulin Corea, Disposable, (BD ULTRA-FINE GABINO PEN NEEDLE) 32 gauge x 5/32" 100 Each 0 Sig: Inject 1 Each subcutaneously four times daily. use with insulin semaglutide (OZEMPIC) 1 mg/dose (4 mg/3 mL) pen 3 mL 0 Sig: Inject 1 mg subcutaneously one time a week. This REPLACES Trulicity. insulin lispro (HUMALOG KWIKPEN INSULIN) 100 unit/mL 15 Each 0 Sig: Inject 50 units plus sliding scale three times daily before meals (Sliding scale: 2 units for every 50 points >150; TDD 150 units) insulin glargine U-300 conc (TOUJEO MAX U-300 SOLOSTAR) 300 unit/mL (3 mL) inpn 21 mL 0 Sig: Inject 105 Units subcutaneously twice daily. Date of last office visit in primary care: 06/24/23 Last 2 Encounter Wt Readings: Date: Wt: 06/24/2023 160.7 kg (354 lb 3.2 oz) 03/11/2023 161.6 kg (356 lb 3.2 oz) Previous labs/tests for medication: Diabetes: Hemoglobin A1C (%) Date Value 06/24/2023 8.6 02/18/2023 8.4 12/12/2021 10.0 08/01/2021 12.8 Thank you. Keyonna Gross LPN [facility] Miscellaneous Notes* Telephone Encounter - Georgina Samayoa RN - 08/05/2023 1:07 PM EDT Opened in Error documented in this encounterC[facility]08-30-2023 Miscellaneous Notes* Telephone Encounter - Roc Stephens Ma - 07/30/2023 11:08 AM EDT Patient notified and aware appointment is canceled. Has not est care yet with another provider aware when she does will fax records but will need to let us know where to send Roc Stephens Ma * Telephone Encounter - Panfilo Oreilly MD - 07/30/2023 10:54 AM EDT This patient is scheduled for follow up with me on 08/05 and was discharged from our practice effective 07/25. I discussed with her at on 06/24 we were discharging her and would continue her care for 30 days. She had a follow up appointment within that timeframe but has repeatedly cancelled OV same day. Please cancel OV and notify patient. Can fax records to new PCP if she requests. documented in this encounterC[facility]08-29-2023 Miscellaneous Notes* Telephone Encounter - Keyonna Gross LPN - 07/29/2023 4:08 PM EDT Spoke with pt and information listed below given. Pt verbalizes understanding. Pt reports she cancelled apt. Pt instructed will need to follow up with a new provider for refills. Keyonna Gross LPN * Telephone Encounter - Panfilo Oreilly MD - 07/29/2023 2:03 PM EDT NO showed today's appointment. No longer our patient. Recommend she f/u with new provider for refills. * Telephone Encounter - Tri Sorensen RN - 07/29/2023 10:18 AM EDT Medication refill requested by [facility]. Requested Prescriptions Pending Prescriptions Disp Refills gabapentin (NEURONTIN) 800 mg tablet Sig: Take 1 tablet by mouth three times daily. Last encounter with this provider: 06/24/2023 Next appt: 07/29/2023 Tri Sorensen RN documented in this encounterC[facility]08-23-2023 Miscellaneous Notes* Telephone Encounter - Marianne Grier RN - 07/23/2023 10:54 AM EDT Patient has been identified by name and date of : Yes, Marianne Grier RN Date 07/23/2023 Time 10:59 am Pharmacy phones for refill(s): Requested Prescriptions Pending Prescriptions Disp Refills omeprazole (PRILOSEC) 40 mg capsule 90 capsule 1 Sig: Take 1 capsule by mouth once daily. Date of last office visit with pcp: 06/24/2023 Future appt: 07/25/2023 Last 2 Encounter Wt Readings: Date: Wt: 06/24/2023 160.7 kg (354 lb 3.2 oz) 03/11/2023 161.6 kg (356 lb 3.2 oz) Previous labs/tests for medication: Blood Pressure: BUN (mg/dL) Date Value 06/24/2023 21 01/23/2022 21 Sodium (mmol/L) Date Value 06/24/2023 138 01/23/2022 134 Last 1 Encounter BP Readings: Date: BP: 06/24/2023 126/70 Liver Function: ALT (U/L) Date Value 06/24/2023 25 12/12/2021 19 AST (U/L) Date Value 06/24/2023 27 12/12/2021 23 Please advise. Thank you. Marianne Grier RN documented in this encounterC[facility]08-15-2023 Discharge summary Author Belem Aponte [facility] July 15, 2023 12:23pm Note Date/Time July 15, 2023 12 :03pm [facility] Medical Records Department [address] [place] [address] Discharge Summary 07/15/23 1203 MR#: [id number] Acct: [id number] Name: MACARIO WALLACE Rep #:[id number] : 1975 48 From: Belem Aponte DO PCP: Dr. Tino Oreilly MD Status :ADM JACQUELYN Location: [place] [address] Providers Date of Admission: 07/14/23 Date of Discharge: 07/15/23 Primary Care Physician: Dr. Tino Oreilly MD Reason For Visit: VOLUME OVERLOAD Diagnosis Discharge Diagnosis (1) CHF (congestive heart failure): Status: Acute Code(s): I50.9 - Heart failure, unspecified Medications at Discharge Home Medications multivit-iron 18 mg-folic acid 400 mcg-calcium 500 mg-minerals tablet 1 ea PO DAILY supplement 03/26/17 omeprazole 40 mg capsule,delayed release 40 mg PO DAILY GERD 12/15/18 loratadine 10 mg tablet 10 mg PO DAILY PRN Allergies 03/01/20 apixaban 5 mg tablet 5 mg PO BID blood thinner 08/20/20 diltiazem HCl 120 mg capsule,extended release 24 hr 120 mg PO DAILY heart rate 08/20/20 lisinopril 10 mg tablet 10 mg PO DAILY blood pressure 03/26/21 metformin 500 mg tablet,extended release 24 hr 2,000 mg PO DAILY diabetes 03/26/21 metoprolol succinate 25 mg tablet,extended release 24 hr 25 mg PO DAILY blood pressure 03/26/21 atorvastatin 80 mg tablet 80 mg PO QHS cholesterol 02/07/22 furosemide 40 mg tablet 80 mg PO BID diuretic 09/22/22 insulin lispro 100 unit/mL subcutaneous pen (Humalog KwikPen (U-100) Insulin) 50unit (0.5 mL) subcut TIDAC #0 mL 09/24/22 albuterol sulfate 2.5 mg/3 mL (0.083 %) solution for nebulization 2.5 mg inhalation Q4H PRN SOB 12/09/22 empagliflozin 10 mg tablet (Jardiance) 10 mg PO DAILY DM 12/09/22 fenofibrate nanocrystallized 145 mg tablet 145 mg PO DAILY CHOLESTEROL 12/09/22 furosemide 20 mg tablet 20 mg PO PRN PRN Edema 12/09/22 potassium chloride 20 mEq tablet,extended release(part/cryst) See Rx Instructions .Route .COMPLEX #60 TABLETS 06/20/23 citalopram 20 mg tablet 20 mg PO DAILY 07/14/23 insulin glargine U-300 conc 300 unit/mL (3 mL) subcutaneous pen (Toujeo Max U- 300 SoloStar) 104 unit subcut BID 07/14/23 lorazepam 0.5 mg tablet 0.5 mg PO Q12H PRN anxiety 07/14/23 nicotine 21 mg/24 hr daily transdermal patch 1 patch topical Q24H 07/14/23 semaglutide 1 mg/dose (4 mg/3 mL) subcutaneous pen injector (Ozempic) 1 mg subcut .1XW 07/14/23 metolazone 2.5 mg tablet 2.5 mg PO .every / #8 tabs 07/15/23 Hospital Course Operations None Procedures EKG and - (Chest x-ray) Summary of Care Provided Minutes Spent on Discharge: 28 Hospital Course: Ms. Wallace is a 48-year-old female with chronic hypoxic and hypercapnic respiratory failure who presented to the emergency department on 07/14/2023 with feeling more short of breath, having more lower extremity swelling and some slight chest pressure with no pain. She noted that she had gained some weight. She is well-known to this facility and has previously had been admitted for Lasix drips and extended hospitalizations. She reported that she wanted to present this time before she got to severe and had to have an extended hospitalization. Her renal function and oxygen requirements at admission were at baseline. She indicated she was recently in [place] visiting her mother and had to be hospitalized and intubated in dialysis to get extra fluid off for severe volume overload. She indicated she was following a fluid and salt restricted diet. She is on Lasix 80 mg p.o. twice daily. She had a recent echocardiogram on 04/24/2023 that showed an EF of 55% and pulmonary systolic pressure of 30 mmHg. Her vital signs were essentially unremarkable on her baseline oxygen at the timeof admission. Her CBC showed a chronic stable anemia but she had a normal whitecount with no left shift indicative of infection. Her chemistry panel was unremarkable. Troponins were cycled and normal x3. Her BNP was 40.4. Her chest x-ray showed mild vascular congestion/CHF. EKG was unremarkable. She wasadmitted to the PCU and placed on IV Lasix overnight. By the a.m. of 07/15/2023 the patient states she felt much better and was back to her baseline and would like to go home. We discussed the importance of monitoring her fluid intake andsodium intake. She acknowledged this and states that she has been trying. We will maintain her on her home Lasix dose and I will add metolazone 2.5 mg twice weekly on Friday and to see if this helps keep volume off. This may need to be titrated up but will allow outpatient follow-up to see if this needs to be increased. She will need a basic metabolic profile to be done in about 1 to 2 weeks to assess her electrolytes with the addition of the biweekly metolazone. She will maintain her home oxygen supplementation I have asked her to follow-up with pulmonary medicine in the next month if able as she has missedher last appointment with them. She will seem to follow-up with her primary care physician within the next 1 to 2 weeks. She was discharged home in stable condition on her baseline oxygen with the addition of metolazone on 07/15/2023. Discharge diagnoses: Shortness of breath-resolved Chest pain-resolved Edema-return to baseline Chronic hypoxic and hypercapnic respiratory failure Acute on chronic diastolic and right-sided heart failure DM-2 Chronic anemia GERD History of PE Diabetic neuropathy LOGAN Obesity hypoventilation syndrome Hyperlipidemia Depression Hypertension Tobacco abuse Physical Exam Narrative Patient states she is feeling much better with diuresis and she states that she is back to her baseline. She states her swelling is better and she has no breathing difficulties at this point. Chest heaviness is resolved. Const alert, oriented x3, no apparent distress, no limitations and well nourished; Negative for average body habitus or healthy appearing Constitutional Narrative: Morbidly obese, middle-aged, white female, sitting up in a chair at the bedside,appears comfortable and nontoxic, on her baseline oxygen General Appearance: cooperative, comfortable, well kempt and well developed Orientation / Consciousness: awake, oriented to person, oriented to place and oriented to time Exam Limitations: no limitations Nutritional Appearance: morbidly obese HEENT normocephalic, head/scalp atraumatic, hearing grossly normal bilaterally and moist oral mucous membranes HEENT Narrative: Mallampati 4, no thrush Resp normal respiratory effort, no retractions, no use of accessory muscles and clearto auscultation bilaterally Resp Narrative: Diminished diffusely but clear with no crackles Auscultation: Negative for rales, rhonchi or wheezes Cardio regular rate, regular rhythm, S1 normal heart sound, S2 normal heart sound, no murmurs, no rub, no gallops and no clicks GI normal to inspection, nondistended, normoactive bowel sounds, soft to palpation and non-tender GI Narrative: Large protuberant abdomen Extremity Extremity Narrative: 1+ bilateral pitting edema with skin changes consistent with venous stasis, no clubbing or cyanosis Neuro oriented x3, moves all extremities and no focal motor deficits Speech: speech normal Psych affect normal Psych Narrative: Eye contact is good and patient is very pleasant Weight / BMI Weight Weight: 170.3 kg Body Mass Index (BMI) 62.4 ABG / Lab / Microbiology Data 07/15/23 06:15 07/15/23 06:15 Laboratory: Laboratory Results - last 24 hr 07/14/23 13:03: WBC 8.9, RBC 3.47 L, Hgb 9.2 L, Hct 30.8 L, MCV 88.8, MCH 26.5 L, MCHC 29.9 L, RDW Std Deviation 58.5 H, RDW Coeff of Darrion 18.4 H, Plt Count 317,MPV 9.2, Immature Gran % (Auto) 3.900 H, Neut % (Auto) 67.8, Lymph % (Auto) 21.4, Defiance % (Auto) 4.5, Eos % (Auto) 1.8, Baso % (Auto) 0.6, Absolute Neuts (auto) 6.1, Absolute Lymphs (auto) 1.91, Nucleated RBC % 0.2, Sodium 140, Potassium 4.4, Chloride 101, Carbon Dioxide 36.0 H, Anion Gap 3 L, BUN 19 H, Creatinine 1.06 H, Estim Creat Clear Calc 59.67, Est GFR (MDRD) Af Amer 72, Est GFR (MDRD) Non-Af 59 L, BUN/Creatinine Ratio 17.9, Glucose 223 H, Calcium 9.0, Troponin I High Sens 18, B-Natriuretic Peptide 40.4 07/14/23 15:14: Troponin I High Sens 17 07/14/23 16:13: POC Glucose 169 H 07/14/23 18:09: POC Glucose 144 H 07/14/23 21:12: POC Glucose 217 H 07/15/23 06:15: WBC 11.0, RBC 3.74 L, Hgb 9.4 L, Hct 33.7 L, MCV 90.1, MCH 25.1 L, MCHC 27.9 L D, RDW Std Deviation 59.6 H, RDW Coeff of Darrion 18.6 H, Plt Count 355, MPV 9.5, Immature Gran % (Auto) 4.200 H, Neut % (Auto) 67.0, Lymph % (Auto)21.4, Defiance % (Auto) 4.5, Eos % (Auto) 2.1, Baso % (Auto) 0.8, Absolute Neuts (auto) 7.4, Absolute Lymphs (auto) 2.35, Nucleated RBC % 0.4, Sodium 140, Potassium 4.3, Chloride 100, Carbon Dioxide 36.0 H, Anion Gap 4 L, BUN 20 H, Creatinine 0.92, Estim Creat Clear Calc 68.75, Est GFR (MDRD) Af Amer 85, Est GFR (MDRD) Non-Af 70, BUN/Creatinine Ratio 21.9 H, Glucose 146 H, Calcium 9.3 07/15/23 08:22: POC Glucose 191 H 07/15/23 11:08: POC Glucose 167 H D/C Instructions Discharge Diet: Low fat / Low cholesterol, 1800 Calorie Control Diet, 8 Cup Fluid Restriction and 2000 mg Sodium Diet Discharge Activity: Return to Normal Activity Meaningful Use Info Meaningful Use Diagnoses (Choose all that apply): None applicable Discharge Plan Admission Admit Date/Time: 07/14/23 16:31 Primary Reason for Your Visit: Shortness of Breath and Edema Attending Provider: Belem Aponte Primary Care Provider: Tino Oreilly Consulting Providers: Liam Wilkes Instructions Additional Instructions / Restrictions: 1. If you start to notice that lying increases okay to take an extra 40 mg doseof Lasix in a 24-hour period 2. Strictly continue to monitor fluid intake to 1.5 to 2 L daily and monitor salt intake for 2 g or less daily Discharge Orders/Prescriptions Prescriptions: New metolazone 2.5 mg tablet 2.5 mg PO .every / Qty: 8 1RF Continued loratadine 10 mg tablet 10 mg PO DAILY PRN (Reason: Allergies) lisinopril 10 mg tablet 10 mg PO DAILY Patient Comments: TAKE 1 TABLET BY MOUTH EVERY DAY metformin 500 mg tablet extended release 24 hr 2,000 mg PO DAILY metoprolol succinate 25 mg tablet extended release 24 hr 25 mg PO DAILY Patient Comments: TAKE 1 TABLET BY MOUTH EVERY DAY atorvastatin 80 mg tablet 80 mg PO QHS [id number]-calcium-mins 1 EACH tablet 1 ea PO DAILY Patient Comments: vitamin omeprazole 40 MG capsule,delayed release(DR/EC) 40 mg PO DAILY diltiazem HCl 120 MG capsule 120 mg PO DAILY apixaban 5 MG tablet 5 mg PO BID furosemide 40 mg tablet 80 mg PO BID insulin lispro [Humalog KwikPen Insulin] 100 unit/mL Insulin Pen 50 unit subcut TIDAC Qty: 0 0RF albuterol sulfate 2.5 mg /3 mL (0.083 %) solution for nebulization 2.5 mg inhalation Q4H PRN (Reason: SOB) furosemide 20 mg tablet 20 mg PO PRN PRN (Reason: Edema) fenofibrate nanocrystallized 145 mg tablet 145 mg PO DAILY Jardiance 10 mg tablet 10 mg PO DAILY citalopram 20 mg tablet 20 mg PO DAILY Toujeo Max U-300 SoloStar 300 unit/mL (3 mL) insulin pen 104 unit SUBCUT BID lorazepam 0.5 mg tablet 0.5 mg PO Q12H PRN (Reason: anxiety) Patient Comments: Take one (1) tablet by mouth every 12 hours, as needed for anxiety. PALLIATIVE PATIENT nicotine 21 mg/24 hr patch 24 hour 1 patch topical Q24H Ozempic 1 mg/dose (4 mg/3 mL) pen injector 1 mg SUBCUT .1XW potassium chloride 20 mEq tablet,ER particles/crystals See Rx Instructions .ROUTE .COMPLEX Qty: 60 0RF Dose Instruction: TAKE 1 TABLET BY MOUTH TWICE A DAY Rx Instructions: TAKE 1 TABLET BY MOUTH TWICE A DAY Referrals / Follow Up: Tino Oreilly MD [Primary Care Provider] - Within 2 Weeks Nelly Hunter NP, [facility] [Med Staff - Adv Practice Prof] - Within 1 Month (callfor appt) Disposition Disposition (needs filled in before D/C Order can be placed): Home, Self Care Charges/Coding Visit Charges Inpatient E&M: 43835 Disch Hosp 07/15/23 1223 <Electronically signed by Belem Aponte DO> Cosigner Signature (if applicable): CC: Dr. Tino Oreilly MD; Dr. Belem Aponte DO~ Signed [facility] Work Phone: 1(248) 810-715708-14-2023 History and physical note Author Liam Wilkes [facility] July 14, 2023 8:28pm Note Date/Time July 14, 2023 5: 10pm [facility] Medical Records Department [address] [place] [address] H&P Exam - Hospitalist 07/14/23 1639 MR#: [id number] Acct: [id number] Name: MACARIO WALLACE Rep #:[id number] : 1975 48 From: Liam regalado MD PCP: Dr. Tino Oreilly MD Status :ADM JACQUELYN Location: [address] HPI - General General Date of Admission: 07/14/23 HPI Narrative MACARIO WALLACE, is a 48 F who presents with some slight chest pressure and feeling a little short of breath. She is also noted that she has gained some weight. She has had issues in the past with volume overload and has needed to be on Lasix drips. Currently her renal function is at baseline and her oxygen requirements are also at baseline. She [place] volume [place] and had to be on dialysis for 2 days in order to get the fluid off. She does state that she follows a fluid restricted diet and a salt restricted diet as well. [facility] Medical History (Updated 07/14/23 @ 16:49 by Yani Mercado) Abscess Abscess of vulva Acute on chronic respiratory failure with hypoxia and hypercapnia KERRY (acute kidney injury) Anemia Anxiety Arthritis BiPAP (biphasic positive airway pressure) dependence BMI 60.0-69.9, adult Chronic diastolic (congestive) heart failure Chronic respiratory failure with hypoxia Congestive heart failure Contusion of knee, right COPD (chronic obstructive pulmonary disease) Depression Diabetes Dyspnea on exertion Essential hypertension GERD (gastroesophageal reflux disease) Hidradenitis History of diabetes mellitus History of left heart catheterization (LHC) (~01/05/19) History of MRSA infection Hyperglycemia due to type 2 diabetes mellitus Hyperlipidemia Hypertension Hypoxia Morbid obesity Morbid obesity Necrotizing soft tissue infection Non-healing open wound of left groin Non-smoker Noncompliance with CPAP treatment NSTEMI (non-ST elevated myocardial infarction) 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 Old myocardial infarction On home oxygen therapy Open wound of vulva with complication Opiate overdose Perianal abscess Pulmonary embolism Respiratory failure with hypoxia Restrictive lung disease secondary to obesity Sleep apnea Smoker Soft tissue abscess of inguinal region Tobacco abuse Type 2 diabetes mellitus Type 2 diabetes mellitus with hyperglycemia Venous stasis dermatitis of both lower extremities Home Medications multivit-iron 18 mg-folic acid 400 mcg-calcium 500 mg-minerals tablet 1 ea PO DAILY supplement 03/26/17 [History Last Taken 07/14/23] omeprazole 40 mg capsule,delayed release 40 mg PO DAILY GERD 12/15/18 [History Last Taken 07/14/23] loratadine 10 mg tablet 10 mg PO DAILY PRN Allergies 03/01/20 [History Last Taken 07/14/23] apixaban 5 mg tablet 5 mg PO BID blood thinner 08/20/20 [History Last Taken 07/14/23] diltiazem HCl 120 mg capsule,extended release 24 hr 120 mg PO DAILY heart rate 08/20/20 [History Last Taken 07/14/23] lisinopril 10 mg tablet 10 mg PO DAILY blood pressure 03/26/21 [History Last Taken 07/14/23] metformin 500 mg tablet,extended release 24 hr 2,000 mg PO DAILY diabetes 03/26/21 [History Last Taken 07/14/23] metoprolol succinate 25 mg tablet,extended release 24 hr 25 mg PO DAILY blood pressure 03/26/21 [History Last Taken 07/14/23] atorvastatin 80 mg tablet 80 mg PO QHS cholesterol 02/07/22 [History Last Taken 07/14/23] furosemide 40 mg tablet 80 mg PO BID diuretic 09/22/22 [History Last Taken 07/14/23] insulin lispro 100 unit/mL subcutaneous pen (Humalog KwikPen (U-100) Insulin) 50unit (0.5 mL) subcut TIDAC #0 mL 09/24/22 [Rx Last Taken 07/13/23] albuterol sulfate 2.5 mg/3 mL (0.083 %) solution for nebulization 2.5 mg inhalation Q4H PRN SOB 12/09/22 [History Last Taken 07/10/23] empagliflozin 10 mg tablet (Jardiance) 10 mg PO DAILY DM 12/09/22 [History Last Taken 04/23/23] fenofibrate nanocrystallized 145 mg tablet 145 mg PO DAILY CHOLESTEROL 12/09/22 [History Last Taken 07/14/23] furosemide 20 mg tablet 20 mg PO PRN PRN Edema 12/09/22 [History Last Taken Unknown] potassium chloride 20 mEq tablet,extended release(part/cryst) See Rx Instructions .Route .COMPLEX #60 TABLETS 06/20/23 [Rx Last Taken 07/14/23] citalopram 20 mg tablet 20 mg PO DAILY 07/14/23 [History Last Taken 07/14/23] insulin glargine U-300 conc 300 unit/mL (3 mL) subcutaneous pen (Toujeo Max U- 300 SoloStar) 104 unit subcut BID 07/14/23 [History Last Taken 07/13/23] lorazepam 0.5 mg tablet 0.5 mg PO Q12H PRN anxiety 07/14/23 [History Last Taken 07/13/23] nicotine 21 mg/24 hr daily transdermal patch 1 patch topical Q24H 07/14/23 [History Last Taken 07/13/23] semaglutide 1 mg/dose (4 mg/3 mL) subcutaneous pen injector (Ozempic) 1 mg subcut .1XW 07/14/23 [History Last Taken 07/13/23] Allergy/AdvReac Type Severity Reaction Status Date / Time cyclobenzaprine HCl Allergy Hives Verified 07/14/23 11:09 [From Flexeril] venlafaxine [From Effexor] AdvReac Severe unknown Verified 07/14/23 11:09 Family History Father CVA (cerebral vascular accident) Heart disease Diabetes Mother Thyroid disorder Surgical History H/O arthroscopic knee surgery History of delivery History of cholecystectomy Social History household members: none Smoking Status: Former smoker how long ago did patient quit smokin PPD smoker second hand exposure: Yes alcohol intake: never substance use type: does not use caffeine: Yes Type: carbonated beverages Number of servings: 1 and coffee Number of servings: 1 ROS Constitutional Constitutional: Denies chills, fatigue, fever(s) or malaise Eyes Eyes: Denies blurry vision ENT HEENT: Denies headache(s) or nasal discharge Cardiovascular Cardiovascular: Reports edema; Denies chest pain, dyspnea on exertion or syncope Respiratory/Chest Respiratory/Chest: Reports shortness of breath at rest; Denies cough or shortness of breath with exertion Gastrointestinal Gastrointestinal: Denies constipation, diarrhea, nausea or vomiting Genitourinary Genitourinary: Denies dysuria Neurologic Neurologic: Denies focal weakness, numbness or tremor(s) Psychiatric Psychiatric: Denies anxiety or depression Vital Signs Vital Signs Vital Signs: 07/14/23 11:09 07/14/23 11:39 07/14/23 11:39 Temperature 96.4 F L Temperature Source Temporal Pulse Rate 84 69 Respiratory Rate 22 H 12 Respiratory Effort Blood Pressure 165/83 H 155/73 H Blood Pressure Mean 110 100 Pulse Ox 93 95 94 Oxygen Delivery Method Room Air Nasal Cannula Nasal Cannula Oxygen Flow Rate (L/min) 5 5 5 07/14/23 11:40 07/14/23 13:09 07/14/23 13:13 Temperature 97.8 F Temperature Source Oral Pulse Rate 65 66 Respiratory Rate 14 13 Respiratory Effort Short of Breath Labored Blood Pressure 139/69 H 139/69 H Blood Pressure Mean 92 92 Pulse Ox 96 95 Oxygen Delivery Method Nasal Cannula Nasal Cannula Oxygen Flow Rate (L/min) 5 5 07/14/23 14:20 07/14/23 14:20 07/14/23 15:04 Temperature 97.9 F 97.9 F 98.1 F Temperature Source Oral Oral Oral Pulse Rate 69 68 67 Respiratory Rate 16 19 H 14 Respiratory Effort Blood Pressure 147/72 H 147/72 H 116/79 Blood Pressure Mean 97 97 91 Pulse Ox 94 94 94 Oxygen Delivery Method Nasal Cannula Nasal Cannula Nasal Cannula Oxygen Flow Rate (L/min) 5 5 5 07/14/23 15:04 07/14/23 16:16 07/14/23 16:19 Temperature 98.1 F 98.2 F Temperature Source Oral Oral Pulse Rate 66 73 68 Respiratory Rate 14 17 16 Respiratory Effort Blood Pressure 116/79 135/51 H 135/51 H Blood Pressure Mean 91 79 79 Pulse Ox 93 94 96 Oxygen Delivery Method Nasal Cannula Nasal Cannula Nasal Cannula Oxygen Flow Rate (L/min) 5 5 5 Weight Weight: 383 lb 6.142 oz Body Mass Index (BMI) 63.8 Physical Exam Narrative General: Alert, Oriented x3, Cooperative, No apparent distress HEENT: Atraumatic, PERRLA, EOMI, Normocephalic Oral: Moist Mucosa Neck: Supple, No JVD Lungs: Diminished, Normal air movement, No rhonchi, No wheeze, No rales Cardiovascular: Regular rate, Regular Rhythm, Normal S1, Normal S2, No murmurs, limited by body habitus Abdomen: Soft, Non Tender, Non-Distended, No Hepato-splenomegaly Extremities: Edema, Capillary Refill Less than 3 Seconds Skin: No rashes, No breakdown. Chronic venous stasis changes bilateral lower extremities Musculoskeletal: No Tenderness to Palpation of Joints or Extremities Neurological: Motor Exam 5/5 strength throughout, Sensory exam intact to light touch and pain Psych/Mental Status: Normal Affect, Appropriate Results Lab / Micro Data 07/14/23 13:03 07/14/23 13:03 Labs: Laboratory Results - last 24 hr 07/14/23 13:03: WBC 8.9, RBC 3.47 L, Hgb 9.2 L, Hct 30.8 L, MCV 88.8, MCH 26.5 L, MCHC 29.9 L, RDW Std Deviation 58.5 H, RDW Coeff of Darrion 18.4 H, Plt Count 317,MPV 9.2, Immature Gran % (Auto) 3.900 H, Neut % (Auto) 67.8, Lymph % (Auto) 21.4, Defiance % (Auto) 4.5, Eos % (Auto) 1.8, Baso % (Auto) 0.6, Absolute Neuts (auto)6.1, Absolute Lymphs (auto) 1.91, Nucleated RBC % 0.2, Sodium 140, Potassium 4.4, Chloride 101, Carbon Dioxide 36.0 H, Anion Gap 3 L, BUN 19 H, Creatinine 1.06 H, Estim Creat Clear Calc 59.67, Est GFR (MDRD) Af Amer 72, Est GFR (MDRD) Non-Af 59 L, BUN/Creatinine Ratio 17.9, Glucose 223 H, Calcium 9.0, Troponin I High Sens 18, B-Natriuretic Peptide 40.4 07/14/23 15:14: Troponin I High Sens 17 07/14/23 16:13: POC Glucose 169 H Radiology Impression Chest X-Ray 07/14/23 11:29 IMPRESSION: Vascular congestion and mild CHF. Electronically Signed: Dylan Gan MD at 11:49 EDT , Assessment & Plan Assessment/Plan (1) CHF (congestive heart failure): PLAN: Plan 1. Chronic hypoxic and hypercapnic respiratory failure/chronic diastolic CHF/HTN/HLD ? Given her symptoms will treat with 3 times daily IV Lasix despite being at baseline oxygen requirements ? Her home blood pressure medications can be resumed ? New with her home Lipitor ? Continue with CPAP 2. DM 2/morbid obesity ? We will reduce her insulin as we will be placing her on a calorie controlled diet ? Accu-Cheks ACHS ? Sliding scale insulin ? We will monitor and make adjustments as necessary ? BMI of 63.2, lifestyle modifications were discussed 3. Anxiety/depression ? Stable ? Continue with her home medic patient 4. GERD ? Stable ? Continue with PPI 5. History of PE ? Stable ? Continue with Eliquis DVT: Eliquis 75 minutes was spent on direct patient care, including documentation as well as chart review and collaboration with colleagues Charges/Coding Visit Charges Inpatient E&M: 47557 Init Hosp L3 07/14/232027 <Electronically signed by Liam Wilkes MD> Cosigner Signature (if applicable): CC: Dr. Tino Oreilly MD; Dr. Liam Wilkes MD~ Signed [facility] Work Phone: 1(108) 639-695708-14-2023 History and physical note Author Liam Wilkes [facility] July 14, 2023 8:28pm Note Date/Time July 14, 2023 5: 10pm [facility] Medical Records Department [address] [place] [address] H&P Exam - Hospitalist 07/14/23 1639 MR#: [id number] Acct: [id number] Name: MACARIO WALLACE Rep #:[id number] : 1975 48 From: Liam regalado MD PCP: Dr. Tino Oreilly MD Status :ADM JACQUELYN Location: [place] [id number] HPI - General General Date of Admission: 07/14/23 HPI Narrative MACARIO WALLACE, is a 48 F who presents with some slight chest pressure and feeling a little short of breath. She is also noted that she has gained some weight. She has had issues in the past with volume overload and has needed to be on Lasix drips. Currently her renal function is at baseline and her oxygen requirements are also at baseline. She states that she was recently hospitalizedin [place] secondary to severe volume overload and had to be on dialysis for 2 days in order to get the fluid off. She does state that she follows a fluid restricted diet and a salt restricted diet as well. [facility] Medical History (Updated 07/14/23 @ 16:49 by Yani Mercado) Abscess Abscess of vulva Acute on chronic respiratory failure with hypoxia and hypercapnia KERRY (acute kidney injury) Anemia Anxiety Arthritis BiPAP (biphasic positive airway pressure) dependence BMI 60.0-69.9, adult Chronic diastolic (congestive) heart failure Chronic respiratory failure with hypoxia Congestive heart failure Contusion of knee, right COPD (chronic obstructive pulmonary disease) Depression Diabetes Dyspnea on exertion Essential hypertension GERD (gastroesophageal reflux disease) Hidradenitis History of diabetes mellitus History of left heart catheterization (LHC) (~01/05/19) History of MRSA infection Hyperglycemia due to type 2 diabetes mellitus Hyperlipidemia Hypertension Hypoxia Morbid obesity Morbid obesity Necrotizing soft tissue infection Non-healing open wound of left groin Non-smoker Noncompliance with CPAP treatment NSTEMI (non-ST elevated myocardial infarction) 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 Old myocardial infarction On home oxygen therapy Open wound of vulva with complication Opiate overdose Perianal abscess Pulmonary embolism Respiratory failure with hypoxia Restrictive lung disease secondary to obesity Sleep apnea Smoker Soft tissue abscess of inguinal region Tobacco abuse Type 2 diabetes mellitus Type 2 diabetes mellitus with hyperglycemia Venous stasis dermatitis of both lower extremities Home Medications multivit-iron 18 mg-folic acid 400 mcg-calcium 500 mg-minerals tablet 1 ea PO DAILY supplement 03/26/17 [History Last Taken 07/14/23] omeprazole 40 mg capsule,delayed release 40 mg PO DAILY GERD 12/15/18 [History Last Taken 07/14/23] loratadine 10 mg tablet 10 mg PO DAILY PRN Allergies 03/01/20 [History Last Taken 07/14/23] apixaban 5 mg tablet 5 mg PO BID blood thinner 08/20/20 [History Last Taken 07/14/23] diltiazem HCl 120 mg capsule,extended release 24 hr 120 mg PO DAILY heart rate 08/20/20 [History Last Taken 07/14/23] lisinopril 10 mg tablet 10 mg PO DAILY blood pressure 03/26/21 [History Last Taken 07/14/23] metformin 500 mg tablet,extended release 24 hr 2,000 mg PO DAILY diabetes 03/26/21 [History Last Taken 07/14/23] metoprolol succinate 25 mg tablet,extended release 24 hr 25 mg PO DAILY blood pressure 03/26/21 [History Last Taken 07/14/23] atorvastatin 80 mg tablet 80 mg PO QHS cholesterol 02/07/22 [History Last Taken 07/14/23] furosemide 40 mg tablet 80 mg PO BID diuretic 09/22/22 [History Last Taken 07/14/23] insulin lispro 100 unit/mL subcutaneous pen (Humalog KwikPen (U-100) Insulin) 50unit (0.5 mL) subcut TIDAC #0 mL 09/24/22 [Rx Last Taken 07/13/23] albuterol sulfate 2.5 mg/3 mL (0.083 %) solution for nebulization 2.5 mg inhalation Q4H PRN SOB 12/09/22 [History Last Taken 07/10/23] empagliflozin 10 mg tablet (Jardiance) 10 mg PO DAILY DM 12/09/22 [History Last Taken 04/23/23] fenofibrate nanocrystallized 145 mg tablet 145 mg PO DAILY CHOLESTEROL 12/09/22 [History Last Taken 07/14/23] furosemide 20 mg tablet 20 mg PO PRN PRN Edema 12/09/22 [History Last Taken Unknown] potassium chloride 20 mEq tablet,extended release(part/cryst) See Rx Instructions .Route .COMPLEX #60 TABLETS 06/20/23 [Rx Last Taken 07/14/23] citalopram 20 mg tablet 20 mg PO DAILY 07/14/23 [History Last Taken 07/14/23] insulin glargine U-300 conc 300 unit/mL (3 mL) subcutaneous pen (Toujeo Max U- 300 SoloStar) 104 unit subcut BID 07/14/23 [History Last Taken 07/13/23] lorazepam 0.5 mg tablet 0.5 mg PO Q12H PRN anxiety 07/14/23 [History Last Taken 07/13/23] nicotine 21 mg/24 hr daily transdermal patch 1 patch topical Q24H 07/14/23 [History Last Taken 07/13/23] semaglutide 1 mg/dose (4 mg/3 mL) subcutaneous pen injector (Ozempic) 1 mg subcut .1XW 07/14/23 [History Last Taken 07/13/23] Allergy/AdvReac Type Severity Reaction Status Date / Time cyclobenzaprine HCl Allergy Hives Verified 07/14/23 11:09 [From Flexeril] venlafaxine [From Effexor] AdvReac Severe unknown Verified 07/14/23 11:09 Family History Father CVA (cerebral vascular accident) Heart disease Diabetes Mother Thyroid disorder Surgical History H/O arthroscopic knee surgery History of delivery History of cholecystectomy Social History household members: none Smoking Status: Former smoker how long ago did patient quit smokin PPD smoker second hand exposure: Yes alcohol intake: never substance use type: does not use caffeine: Yes Type: carbonated beverages Number of servings: 1 and coffee Number of servings: 1 ROS Constitutional Constitutional: Denies chills, fatigue, fever(s) or malaise Eyes Eyes: Denies blurry vision ENT HEENT: Denies headache(s) or nasal discharge Cardiovascular Cardiovascular: Reports edema; Denies chest pain, dyspnea on exertion or syncope Respiratory/Chest Respiratory/Chest: Reports shortness of breath at rest; Denies cough or shortness of breath with exertion Gastrointestinal Gastrointestinal: Denies constipation, diarrhea, nausea or vomiting Genitourinary Genitourinary: Denies dysuria Neurologic Neurologic: Denies focal weakness, numbness or tremor(s) Psychiatric Psychiatric: Denies anxiety or depression Vital Signs Vital Signs Vital Signs: 07/14/23 11:09 07/14/23 11:39 07/14/23 11:39 Temperature 96.4 F L Temperature Source Temporal Pulse Rate 84 69 Respiratory Rate 22 H 12 Respiratory Effort Blood Pressure 165/83 H 155/73 H Blood Pressure Mean 110 100 Pulse Ox 93 95 94 Oxygen Delivery Method Room Air Nasal Cannula Nasal Cannula Oxygen Flow Rate (L/min) 5 5 5 07/14/23 11:40 07/14/23 13:09 07/14/23 13:13 Temperature 97.8 F Temperature Source Oral Pulse Rate 65 66 Respiratory Rate 14 13 Respiratory Effort Short of Breath Labored Blood Pressure 139/69 H 139/69 H Blood Pressure Mean 92 92 Pulse Ox 96 95 Oxygen Delivery Method Nasal Cannula Nasal Cannula Oxygen Flow Rate (L/min) 5 5 07/14/23 14:20 07/14/23 14:20 07/14/23 15:04 Temperature 97.9 F 97.9 F 98.1 F Temperature Source Oral Oral Oral Pulse Rate 69 68 67 Respiratory Rate 16 19 H 14 Respiratory Effort Blood Pressure 147/72 H 147/72 H 116/79 Blood Pressure Mean 97 97 91 Pulse Ox 94 94 94 Oxygen Delivery Method Nasal Cannula Nasal Cannula Nasal Cannula Oxygen Flow Rate (L/min) 5 5 5 07/14/23 15:04 07/14/23 16:16 07/14/23 16:19 Temperature 98.1 F 98.2 F Temperature Source Oral Oral Pulse Rate 66 73 68 Respiratory Rate 14 17 16 Respiratory Effort Blood Pressure 116/79 135/51 H 135/51 H Blood Pressure Mean 91 79 79 Pulse Ox 93 94 96 Oxygen Delivery Method Nasal Cannula Nasal Cannula Nasal Cannula Oxygen Flow Rate (L/min) 5 5 5 Weight Weight: 383 lb 6.142 oz Body Mass Index (BMI) 63.8 Physical Exam Narrative General: Alert, Oriented x3, Cooperative, No apparent distress HEENT: Atraumatic, PERRLA, EOMI, Normocephalic Oral: Moist Mucosa Neck: Supple, No JVD Lungs: Diminished, Normal air movement, No rhonchi, No wheeze, No rales Cardiovascular: Regular rate, Regular Rhythm, Normal S1, Normal S2, No murmurs, limited by body habitus Abdomen: Soft, Non Tender, Non-Distended, No Hepato-splenomegaly Extremities: Edema, Capillary Refill Less than 3 Seconds Skin: No rashes, No breakdown. Chronic venous stasis changes bilateral lower extremities Musculoskeletal: No Tenderness to Palpation of Joints or Extremities Neurological: Motor Exam 5/5 strength throughout, Sensory exam intact to light touch and pain Psych/Mental Status: Normal Affect, Appropriate Results Lab / Micro Data 07/14/23 13:03 07/14/23 13:03 Labs: Laboratory Results - last 24 hr 07/14/23 13:03: WBC 8.9, RBC 3.47 L, Hgb 9.2 L, Hct 30.8 L, MCV 88.8, MCH 26.5 L, MCHC 29.9 L, RDW Std Deviation 58.5 H, RDW Coeff of Darrion 18.4 H, Plt Count 317,MPV 9.2, Immature Gran % (Auto) 3.900 H, Neut % (Auto) 67.8, Lymph % (Auto) 21.4, Defiance % (Auto) 4.5, Eos % (Auto) 1.8, Baso % (Auto) 0.6, Absolute Neuts (auto)6.1, Absolute Lymphs (auto) 1.91, Nucleated RBC % 0.2, Sodium 140, Potassium 4.4, Chloride 101, Carbon Dioxide 36.0 H, Anion Gap 3 L, BUN 19 H, Creatinine 1.06 H, Estim Creat Clear Calc 59.67, Est GFR (MDRD) Af Amer 72, Est GFR (MDRD) Non-Af 59 L, BUN/Creatinine Ratio 17.9, Glucose 223 H, Calcium 9.0, Troponin I High Sens 18, B-Natriuretic Peptide 40.4 07/14/23 15:14: Troponin I High Sens 17 07/14/23 16:13: POC Glucose 169 H Radiology Impression Chest X-Ray 07/14/23 11:29 IMPRESSION: Vascular congestion and mild CHF. Electronically Signed: Dylan Gan MD at 11:49 EDT , Assessment & Plan Assessment/Plan (1) CHF (congestive heart failure): PLAN: Plan 1. Chronic hypoxic and hypercapnic respiratory failure/chronic diastolic CHF/HTN/HLD ? Given her symptoms will treat with 3 times daily IV Lasix despite being at baseline oxygen requirements ? Her home blood pressure medications can be resumed ? New with her home Lipitor ? Continue with CPAP 2. DM 2/morbid obesity ? We will reduce her insulin as we will be placing her on a calorie controlled diet ? Accu-Cheks ACHS ? Sliding scale insulin ? We will monitor and make adjustments as necessary ? BMI of 63.2, lifestyle modifications were discussed 3. Anxiety/depression ? Stable ? Continue with her home medic patient 4. GERD ? Stable ? Continue with PPI 5. History of PE ? Stable ? Continue with Eliquis DVT: Eliquis 75 minutes was spent on direct patient care, including documentation as well as chart review and collaboration with colleagues Charges/Coding Visit Charges Inpatient E&M: 12915 Init Hosp L3 07/14/232027 <Electronically signed by Liam Wilkes MD> Cosigner Signature (if applicable): CC: Dr. Tino Oreilly MD; Dr. Liam Wilkes MD~ Signed [facility] Work Phone: 1(237) 523-246008-14-2023 Discharge summary Author Irina Quintero [facility] July 14, 2023 4:18pm Note Date/Time July 14, 2023 11 :28am [facility] Medical Records Department [address] [place] [address] Emergency Department Summary 07/14/23 MR#: [id number] Acct: [id number] Name: MACARIO WALLACE Rep #:[id number] : 1975 48 From: Irina Quintero MD PCP: Dr. Tino Oreilly MD Status :ADM JACQUELYN Location: [place] [address] HPI History of Present Illness Chief Complaint: Chest Pain Detail of Chief Complaint: Chest pain and edema Informant: patient Narrative Narrative: Patient states that she had increasing edema for the past week. Last evening she started noticing some chest heaviness as well. Patient has a history of CHFand is on Lasix. In spite of this she will frequently require admission for IV Lasix drip. Patient states that she was hospitalized at a hospital in [place] 5 to 6 weeks ago on life support with another flare. She has noted recent weight gain. [facility] Medical History Abscess Abscess of vulva Acute on chronic respiratory failure with hypoxia and hypercapnia KERRY (acute kidney injury) Anemia Anxiety BiPAP (biphasic positive airway pressure) dependence BMI 60.0-69.9, adult Chronic diastolic (congestive) heart failure Chronic respiratory failure with hypoxia Congestive heart failure Contusion of knee, right COPD (chronic obstructive pulmonary disease) Depression Diabetes Dyspnea on exertion Essential hypertension GERD (gastroesophageal reflux disease) Hidradenitis History of diabetes mellitus History of left heart catheterization (LHC) (~01/05/19) History of MRSA infection Hyperglycemia due to type 2 diabetes mellitus Hyperlipidemia Hypertension Hypoxia Morbid obesity Morbid obesity Necrotizing soft tissue infection Non-healing open wound of left groin Noncompliance with CPAP treatment NSTEMI (non-ST elevated myocardial infarction) 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 Old myocardial infarction On home oxygen therapy Open wound of vulva with complication Opiate overdose Perianal abscess Pulmonary embolism Respiratory failure with hypoxia Restrictive lung disease secondary to obesity Sleep apnea Smoker Soft tissue abscess of inguinal region Tobacco abuse Type 2 diabetes mellitus Type 2 diabetes mellitus with hyperglycemia Venous stasis dermatitis of both lower extremities Home Medications multivit-iron 18 mg-folic acid 400 mcg-calcium 500 mg-minerals tablet 1 ea PO DAILY supplement 03/26/17 [History Last Taken 07/14/23] omeprazole 40 mg capsule,delayed release 40 mg PO DAILY GERD 12/15/18 [History Last Taken 07/14/23] loratadine 10 mg tablet 10 mg PO DAILY PRN Allergies 03/01/20 [History Last Taken 07/14/23] apixaban 5 mg tablet 5 mg PO BID blood thinner 08/20/20 [History Last Taken 07/14/23] diltiazem HCl 120 mg capsule,extended release 24 hr 120 mg PO DAILY heart rate 08/20/20 [History Last Taken 07/14/23] lisinopril 10 mg tablet 10 mg PO DAILY blood pressure 03/26/21 [History Last Taken 07/14/23] metformin 500 mg tablet,extended release 24 hr 2,000 mg PO DAILY diabetes 03/26/21 [History Last Taken 07/14/23] metoprolol succinate 25 mg tablet,extended release 24 hr 25 mg PO DAILY blood pressure 03/26/21 [History Last Taken 07/14/23] atorvastatin 80 mg tablet 80 mg PO QHS cholesterol 02/07/22 [History Last Taken 07/14/23] furosemide 40 mg tablet 80 mg PO BID diuretic 09/22/22 [History Last Taken 07/14/23] insulin lispro 100 unit/mL subcutaneous pen (Humalog KwikPen (U-100) Insulin) 50unit (0.5 mL) subcut TIDAC #0 mL 09/24/22 [Rx Last Taken 07/13/23] albuterol sulfate 2.5 mg/3 mL (0.083 %) solution for nebulization 2.5 mg inhalation Q4H PRN SOB 12/09/22 [History Last Taken 07/10/23] empagliflozin 10 mg tablet (Jardiance) 10 mg PO DAILY DM 12/09/22 [History Last Taken 04/23/23] fenofibrate nanocrystallized 145 mg tablet 145 mg PO DAILY CHOLESTEROL 12/09/22 [History Last Taken 07/14/23] furosemide 20 mg tablet 20 mg PO PRN PRN Edema 12/09/22 [History Last Taken Unknown] potassium chloride 20 mEq tablet,extended release(part/cryst) See Rx Instructions .Route .COMPLEX #60 TABLETS 06/20/23 [Rx Last Taken 07/14/23] citalopram 20 mg tablet 20 mg PO DAILY 07/14/23 [History Last Taken 07/14/23] insulin glargine U-300 conc 300 unit/mL (3 mL) subcutaneous pen (Toujeo Max U- 300 SoloStar) 104 unit subcut BID 07/14/23 [History Last Taken 07/13/23] lorazepam 0.5 mg tablet 0.5 mg PO Q12H PRN anxiety 07/14/23 [History Last Taken 07/13/23] nicotine 21 mg/24 hr daily transdermal patch 1 patch topical Q24H 07/14/23 [History Last Taken 07/13/23] semaglutide 1 mg/dose (4 mg/3 mL) subcutaneous pen injector (Ozempic) 1 mg subcut .1XW 07/14/23 [History Last Taken 07/13/23] Allergy/AdvReac Type Severity Reaction Status Date / Time cyclobenzaprine HCl Allergy Hives Verified 07/14/23 11:09 [From Flexeril] venlafaxine [From Effexor] AdvReac Severe unknown Verified 07/14/23 11:09 Family History Father CVA (cerebral vascular accident) Heart disease Diabetes Mother Thyroid disorder Surgical History H/O arthroscopic knee surgery History of delivery History of cholecystectomy Social History household members: none Smoking Status: Former smoker how long ago did patient quit smokin PPD smoker second hand exposure: Yes alcohol intake: never substance use type: does not use caffeine: Yes Type: carbonated beverages Number of servings: 1 and coffee Number of servings: 1 ROS ROS ED Constitutional Constitutional ED: Denies chills or fever(s) Eyes Eyes: Denies change in vision or discharge from eye(s) ENT ENT ED: Denies discharge from eye(s), rhinorrhea or sore throat Cardiovascular Cardiovascular: Reports chest pain; Denies palpitations Respiratory/Chest Respiratory/Chest: Reports dyspnea; Denies cough Gastrointestinal Gastrointestinal: Denies abdominal pain, diarrhea, nausea or vomiting Genitourinary Genitourinary ED: Denies dysuria Musculoskeletal Musculoskeletal: Reports extremity pain; Denies back pain Integumentary Reports other Details: Anasarca ; Denies Abrasions or rash Neurologic Neurologic: Reports weakness; Denies headache(s) Psychiatric Psychiatric: Denies anxiety or depression Allergic/Immunologic Allergic/Immunologic ED: Denies lip swelling or urticaria EXAM Physical Exam Const Vital Signs: 07/14/23 11:09 07/14/23 11:39 07/14/23 11:39 Temperature 96.4 F L Temperature Source Temporal Pulse Rate 84 69 Respiratory Rate 22 H 12 Respiratory Effort Blood Pressure 165/83 H 155/73 H Blood Pressure Mean 110 100 Pulse Ox 93 95 94 Oxygen Delivery Method Room Air Nasal Cannula Nasal Cannula Oxygen Flow Rate (L/min) 5 5 5 07/14/23 11:40 07/14/23 13:09 07/14/23 13:13 Temperature 97.8 F Temperature Source Oral Pulse Rate 65 66 Respiratory Rate 14 13 Respiratory Effort Short of Breath Labored Blood Pressure 139/69 H 139/69 H Blood Pressure Mean 92 92 Pulse Ox 96 95 Oxygen Delivery Method Nasal Cannula Nasal Cannula Oxygen Flow Rate (L/min) 5 5 07/14/23 14:20 07/14/23 14:20 Temperature 97.9 F 97.9 F Temperature Source Oral Oral Pulse Rate 69 68 Respiratory Rate 16 19 H Respiratory Effort Blood Pressure 147/72 H 147/72 H Blood Pressure Mean 97 97 Pulse Ox 94 94 Oxygen Delivery Method Nasal Cannula Nasal Cannula Oxygen Flow Rate (L/min) 5 5 Positive well nourished and well developed General Appearance ED: well developed HEENT Reports normocephalic and head/scalp atraumatic Eyes PERRL and EOMs intact bilaterally Neck supple Chest Wall inspection of chest normal and palpation of chest normal Resp normal respiratory effort and clear to auscultation bilaterally Cardio regular rate and regular rhythm GI non-tender Palpation: soft Extremity Extremity Narrative: 3+ bilateral lower extremity edema. Neuro oriented x3 Neuro Narrative: No focal neurologic deficits. Sensorium / Orientation: alert Motor Exam: strength 5/5 throughout Psych mental status grossly normal Skin no rashes or lesions noted MDM MDM MDM Narrative Medical decision making narrative: Patient placed on cardiac nurse. EKG obtained to evaluate for cardiac arrhythmia/ischemia. Labwork obtained to evaluate for leukocytosis, anemia, andelectrolyte derangement. Chest x-ray obtained to evaluate for acute lung pathology, cardiac size, or mediastinal abnormality. History & Record Review Discussion w/independent historian: Patient Additional record(s) reviewed:: Prior inpatient record, Prior ED visit and Priorlabs Lab Data Attestation: I reviewed the patient's lab results. Labs: Laboratory Results - last 24 hr 07/14/23 13:03 WBC 8.9 RBC 3.47 L Hgb 9.2 L Hct 30.8 L MCV 88.8 MCH 26.5 L MCHC 29.9 L RDW Std Deviation 58.5 H RDW Coeff of Darrion 18.4 H Plt Count 317 MPV 9.2 Immature Gran % (Auto) 3.900 H Neut % (Auto) 67.8 Lymph % (Auto) 21.4 Def[place] % (Auto) 4.5 Eos % (Auto) 1.8 Baso % (Auto) 0.6 Absolute Neuts (auto) 6.1 Absolute Lymphs (auto) 1.91 Nucleated RBC % 0.2 Sodium 140 Potassium 4.4 Chloride 101 Carbon Dioxide 36.0 H Anion Gap 3 L BUN 19 H Creatinine 1.06 H Estim Creat Clear Calc 59.67 Est GFR (MDRD) Af Amer 72 Est GFR (MDRD) Non-Af 59 L BUN/Creatinine Ratio 17.9 Glucose 223 H Calcium 9.0 Troponin I High Sens 18 B-Natriuretic Peptide 40.4 Radiography Chest X-Ray - ED: 1 View, Read by ED Physician, Chronic Changes, Cardiomegaly and CHF Diagnostic Testing: Clinical Impression(s) from Imaging Studies Chest X-Ray 07/14/23 11:29 IMPRESSION: Vascular congestion and mild CHF. Electronically Signed: Dylan Gan MD at 11:49 EDT , EKG Initial EKG: Attestation: I personally reviewed and interpreted this EKG as follows: Interpretation: Sinus Rhythm (Sinus at 63 with no acute ischemia.) Treatment and Re-Evaluation :: CBC was normal white count 8.9 with a hemoglobin of 9.2. This appears to be consistent with her baseline. Chemistry studies reveal a bicarb of 36 with a BUN of 19 and a creatinine 1.06. Glucose is 223. Troponin is normal at 18. BNP is 40. Portable chest x-ray per my interpretation was chronic changes with cardiomegaly and mild CHF. Radiology interpretation is reviewed and agrees. On repeat evaluation patient's O2 sat is 91% on 4-1/2 L. Her legs are edematousand tense. I have seen this patient multiple times previously and although her BNP does not significantly elevate, it has been noted that she has been placed on Lasix drip in the hospital to get rid of excess of fluid with multiple litersdrained. I do feel that she does require IV Lasix at this time as she is currently on 80 mg of Lasix a day and still gaining weight and becoming more swollen. I will speak with the hospitalist. Discharge Plan Triage Chief Complaint: Chest Pain ED Provider: Irina Quintero Dx/Rx/DC Orders Clinical Impression: CHF (congestive heart failure), Chest pain Prescriptions: No Action loratadine 10 mg tablet 10 mg PO DAILY PRN (Reason: Allergies) lisinopril 10 mg tablet 10 mg PO DAILY Patient Comments: TAKE 1 TABLET BY MOUTH EVERY DAY metformin 500 mg tablet extended release 24 hr 2,000 mg PO DAILY metoprolol succinate 25 mg tablet extended release 24 hr 25 mg PO DAILY Patient Comments: TAKE 1 TABLET BY MOUTH EVERY DAY atorvastatin 80 mg tablet 80 mg PO QHS [id number]-[id number]-calcium-mins 1 EACH tablet 1 ea PO DAILY Patient Comments: vitamin omeprazole 40 MG capsule,delayed release(DR/EC) 40 mg PO DAILY diltiazem HCl 120 MG capsule 120 mg PO DAILY apixaban 5 MG tablet 5 mg PO BID furosemide 40 mg tablet 80 mg PO BID insulin lispro [Humalog KwikPen Insulin] 100 unit/mL Insulin Pen 50 unit subcut TIDAC Qty: 0 0RF albuterol sulfate 2.5 mg /3 mL (0.083 %) solution for nebulization 2.5 mg inhalation Q4H PRN (Reason: SOB) furosemide 20 mg tablet 20 mg PO PRN PRN (Reason: Edema) fenofibrate nanocrystallized 145 mg tablet 145 mg PO DAILY Jardiance 10 mg tablet 10 mg PO DAILY citalopram 20 mg tablet 20 mg PO DAILY Toujeo Max U-300 SoloStar 300 unit/mL (3 mL) insulin pen 104 unit SUBCUT BID lorazepam 0.5 mg tablet 0.5 mg PO Q12H PRN (Reason: anxiety) Patient Comments: Take one (1) tablet by mouth every 12 hours, as needed for anxiety. PALLIATIVE PATIENT nicotine 21 mg/24 hr patch 24 hour 1 patch topical Q24H Ozempic 1 mg/dose (4 mg/3 mL) pen injector 1 mg SUBCUT .1XW potassium chloride 20 mEq tablet,ER particles/crystals See Rx Instructions .ROUTE .COMPLEX Qty: 60 0RF Dose Instruction: TAKE 1 TABLET BY MOUTH TWICE A DAY Rx Instructions: TAKE 1 TABLET BY MOUTH TWICE A DAY Primary Care Provider: Tino Oreilly Referrals: Tino Oreilly MD [Primary Care Provider] - Disposition Disposition: Acute Care Hospital [facility] What to do if you have Problems For any increased pain, shortness of breath, bleeding, nausea or vomiting, chestpain, or any unexpected problems, contact your Primary Care Provider. Call [facility] ([phone]) or report to the closest Emergency Room. Call 911 if necessary. 07/14/23 8248 <Electronically signed by Irina Quintero MD> Cosigner Signature (if applicable): CC: Dr. Tino Oreilly MD ~ Signed [facility] Work Phone: [phone]) 466-729608-14-2023 Discharge summary Author Irina Quintero [facility] July 14, 2023 4:18pm Note Date/Time July 14, 2023 11 :28am [facility] Medical Records Department [address] [place] [address] Emergency Department Summary 07/14/23 MR#: [id number] Acct: [id number] Name: MACARIO WALLACE Rep #:[id number] : 1975 48 From: Irina Quintero MD PCP: Dr. Tino Oreilly MD Status :ADM JACQUELYN Location: [place] [address] HPI History of Present Illness Chief Complaint: Chest Pain Detail of Chief Complaint: Chest pain and edema Informant: patient Narrative Narrative: Patient states that she had increasing edema for the past week. Last evening she started noticing some chest heaviness as well. Patient has a history of CHFand is on Lasix. In spite of this she will frequently require admission for IV Lasix drip. Patient states that she was hospitalized at a hospital in [place] 5 to 6 weeks ago on life support with another flare. She has noted recent weight gain. [facility] Medical History Abscess Abscess of vulva Acute on chronic respiratory failure with hypoxia and hypercapnia KERRY (acute kidney injury) Anemia Anxiety BiPAP (biphasic positive airway pressure) dependence BMI 60.0-69.9, adult Chronic diastolic (congestive) heart failure Chronic respiratory failure with hypoxia Congestive heart failure Contusion of knee, right COPD (chronic obstructive pulmonary disease) Depression Diabetes Dyspnea on exertion Essential hypertension GERD (gastroesophageal reflux disease) Hidradenitis History of diabetes mellitus History of left heart catheterization (LHC) (~01/05/19) History of MRSA infection Hyperglycemia due to type 2 diabetes mellitus Hyperlipidemia Hypertension Hypoxia Morbid obesity Morbid obesity Necrotizing soft tissue infection Non-healing open wound of left groin Noncompliance with CPAP treatment NSTEMI (non-ST elevated myocardial infarction) 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 Old myocardial infarction On home oxygen therapy Open wound of vulva with complication Opiate overdose Perianal abscess Pulmonary embolism Respiratory failure with hypoxia Restrictive lung disease secondary to obesity Sleep apnea Smoker Soft tissue abscess of inguinal region Tobacco abuse Type 2 diabetes mellitus Type 2 diabetes mellitus with hyperglycemia Venous stasis dermatitis of both lower extremities Home Medications multivit-iron 18 mg-folic acid 400 mcg-calcium 500 mg-minerals tablet 1 ea PO DAILY supplement 03/26/17 [History Last Taken 07/14/23] omeprazole 40 mg capsule,delayed release 40 mg PO DAILY GERD 12/15/18 [History Last Taken 07/14/23] loratadine 10 mg tablet 10 mg PO DAILY PRN Allergies 03/01/20 [History Last Taken 07/14/23] apixaban 5 mg tablet 5 mg PO BID blood thinner 08/20/20 [History Last Taken 07/14/23] diltiazem HCl 120 mg capsule,extended release 24 hr 120 mg PO DAILY heart rate 08/20/20 [History Last Taken 07/14/23] lisinopril 10 mg tablet 10 mg PO DAILY blood pressure 03/26/21 [History Last Taken 07/14/23] metformin 500 mg tablet,extended release 24 hr 2,000 mg PO DAILY diabetes 03/26/21 [History Last Taken 07/14/23] metoprolol succinate 25 mg tablet,extended release 24 hr 25 mg PO DAILY blood pressure 03/26/21 [History Last Taken 07/14/23] atorvastatin 80 mg tablet 80 mg PO QHS cholesterol 02/07/22 [History Last Taken 07/14/23] furosemide 40 mg tablet 80 mg PO BID diuretic 09/22/22 [History Last Taken 07/14/23] insulin lispro 100 unit/mL subcutaneous pen (Humalog KwikPen (U-100) Insulin) 50unit (0.5 mL) subcut TIDAC #0 mL 09/24/22 [Rx Last Taken 07/13/23] albuterol sulfate 2.5 mg/3 mL (0.083 %) solution for nebulization 2.5 mg inhalation Q4H PRN SOB 12/09/22 [History Last Taken 07/10/23] empagliflozin 10 mg tablet (Jardiance) 10 mg PO DAILY DM 12/09/22 [History Last Taken 04/23/23] fenofibrate nanocrystallized 145 mg tablet 145 mg PO DAILY CHOLESTEROL 12/09/22 [History Last Taken 07/14/23] furosemide 20 mg tablet 20 mg PO PRN PRN Edema 12/09/22 [History Last Taken Unknown] potassium chloride 20 mEq tablet,extended release(part/cryst) See Rx Instructions .Route .COMPLEX #60 TABLETS 06/20/23 [Rx Last Taken 07/14/23] citalopram 20 mg tablet 20 mg PO DAILY 07/14/23 [History Last Taken 07/14/23] insulin glargine U-300 conc 300 unit/mL (3 mL) subcutaneous pen (Toujeo Max U- 300 SoloStar) 104 unit subcut BID 07/14/23 [History Last Taken 07/13/23] lorazepam 0.5 mg tablet 0.5 mg PO Q12H PRN anxiety 07/14/23 [History Last Taken 07/13/23] nicotine 21 mg/24 hr daily transdermal patch 1 patch topical Q24H 07/14/23 [History Last Taken 07/13/23] semaglutide 1 mg/dose (4 mg/3 mL) subcutaneous pen injector (Ozempic) 1 mg subcut .1XW 07/14/23 [History Last Taken 07/13/23] Allergy/AdvReac Type Severity Reaction Status Date / Time cyclobenzaprine HCl Allergy Hives Verified 07/14/23 11:09 [From Flexeril] venlafaxine [From Effexor] AdvReac Severe unknown Verified 07/14/23 11:09 Family History Father CVA (cerebral vascular accident) Heart disease Diabetes Mother Thyroid disorder Surgical History H/O arthroscopic knee surgery History of delivery History of cholecystectomy Social History household members: none Smoking Status: Former smoker how long ago did patient quit smokin PPD smoker second hand exposure: Yes alcohol intake: never substance use type: does not use caffeine: Yes Type: carbonated beverages Number of servings: 1 and coffee Number of servings: 1 ROS ROS ED Constitutional Constitutional ED: Denies chills or fever(s) Eyes Eyes: Denies change in vision or discharge from eye(s) ENT ENT ED: Denies discharge from eye(s), rhinorrhea or sore throat Cardiovascular Cardiovascular: Reports chest pain; Denies palpitations Respiratory/Chest Respiratory/Chest: Reports dyspnea; Denies cough Gastrointestinal Gastrointestinal: Denies abdominal pain, diarrhea, nausea or vomiting Genitourinary Genitourinary ED: Denies dysuria Musculoskeletal Musculoskeletal: Reports extremity pain; Denies back pain Integumentary Reports other Details: Anasarca ; Denies Abrasions or rash Neurologic Neurologic: Reports weakness; Denies headache(s) Psychiatric Psychiatric: Denies anxiety or depression Allergic/Immunologic Allergic/Immunologic ED: Denies lip swelling or urticaria EXAM Physical Exam Const Vital Signs: 07/14/23 11:09 07/14/23 11:39 07/14/23 11:39 Temperature 96.4 F L Temperature Source Temporal Pulse Rate 84 69 Respiratory Rate 22 H 12 Respiratory Effort Blood Pressure 165/83 H 155/73 H Blood Pressure Mean 110 100 Pulse Ox 93 95 94 Oxygen Delivery Method Room Air Nasal Cannula Nasal Cannula Oxygen Flow Rate (L/min) 5 5 5 07/14/23 11:40 07/14/23 13:09 07/14/23 13:13 Temperature 97.8 F Temperature Source Oral Pulse Rate 65 66 Respiratory Rate 14 13 Respiratory Effort Short of Breath Labored Blood Pressure 139/69 H 139/69 H Blood Pressure Mean 92 92 Pulse Ox 96 95 Oxygen Delivery Method Nasal Cannula Nasal Cannula Oxygen Flow Rate (L/min) 5 5 07/14/23 14:20 07/14/23 14:20 Temperature 97.9 F 97.9 F Temperature Source Oral Oral Pulse Rate 69 68 Respiratory Rate 16 19 H Respiratory Effort Blood Pressure 147/72 H 147/72 H Blood Pressure Mean 97 97 Pulse Ox 94 94 Oxygen Delivery Method Nasal Cannula Nasal Cannula Oxygen Flow Rate (L/min) 5 5 Positive well nourished and well developed General Appearance ED: well developed HEENT Reports normocephalic and head/scalp atraumatic Eyes PERRL and EOMs intact bilaterally Neck supple Chest Wall inspection of chest normal and palpation of chest normal Resp normal respiratory effort and clear to auscultation bilaterally Cardio regular rate and regular rhythm GI non-tender Palpation: soft Extremity Extremity Narrative: 3+ bilateral lower extremity edema. Neuro oriented x3 Neuro Narrative: No focal neurologic deficits. Sensorium / Orientation: alert Motor Exam: strength 5/5 throughout Psych mental status grossly normal Skin no rashes or lesions noted MDM MDM MDM Narrative Medical decision making narrative: Patient placed on cardiac nurse. EKG obtained to evaluate for cardiac arrhythmia/ischemia. Labwork obtained to evaluate for leukocytosis, anemia, andelectrolyte derangement. Chest x-ray obtained to evaluate for acute lung pathology, cardiac size, or mediastinal abnormality. History & Record Review Discussion w/independent historian: Patient Additional record(s) reviewed:: Prior inpatient record, Prior ED visit and Priorlabs Lab Data Attestation: I reviewed the patient's lab results. Labs: Laboratory Results - last 24 hr 07/14/23 13:03 WBC 8.9 RBC 3.47 L Hgb 9.2 L Hct 30.8 L MCV 88.8 MCH 26.5 L MCHC 29.9 L RDW Std Deviation 58.5 H RDW Coeff of Darroin 18.4 H Plt Count 317 MPV 9.2 Immature Gran % (Auto) 3.900 H Neut % (Auto) 67.8 Lymph % (Auto) 21.4 Defiance % (Auto) 4.5 Eos % (Auto) 1.8 Baso % (Auto) 0.6 Absolute Neuts (auto) 6.1 Absolute Lymphs (auto) 1.91 Nucleated RBC % 0.2 Sodium 140 Potassium 4.4 Chloride 101 Carbon Dioxide 36.0 H Anion Gap 3 L BUN 19 H Creatinine 1.06 H Estim Creat Clear Calc 59.67 Est GFR (MDRD) Af Amer 72 Est GFR (MDRD) Non-Af 59 L BUN/Creatinine Ratio 17.9 Glucose 223 H Calcium 9.0 Troponin I High Sens 18 B-Natriuretic Peptide 40.4 Radiography Chest X-Ray - ED: 1 View, Read by ED Physician, Chronic Changes, Cardiomegaly and CHF Diagnostic Testing: Clinical Impression(s) from Imaging Studies Chest X-Ray 07/14/23 11:29 IMPRESSION: Vascular congestion and mild CHF. Electronically Signed: Dylan Gan MD at 11:49 EDT , EKG Initial EKG: Attestation: I personally reviewed and interpreted this EKG as follows: Interpretation: Sinus Rhythm (Sinus at 63 with no acute ischemia.) Treatment and Re-Evaluation :: CBC was normal white count 8.9 with a hemoglobin of 9.2. This appears to be consistent with her baseline. Chemistry studies reveal a bicarb of 36 with a BUN of 19 and a creatinine 1.06. Glucose is 223. Troponin is normal at 18. BNP is 40. Portable chest x-ray per my interpretation was chronic changes with cardiomegaly and mild CHF. Radiology interpretation is reviewed and agrees. On repeat evaluation patient's O2 sat is 91% on 4-1/2 L. Her legs are edematousand tense. I have seen this patient multiple times previously and although her BNP does not significantly elevate, it has been noted that she has been placed on Lasix drip in the hospital to get rid of excess of fluid with multiple litersdrained. I do feel that she does require IV Lasix at this time as she is currently on 80 mg of Lasix a day and still gaining weight and becoming more swollen. I will speak with the hospitalist. Discharge Plan Triage Chief Complaint: Chest Pain ED Provider: Irina Quintero Dx/Rx/DC Orders Clinical Impression: CHF (congestive heart failure), Chest pain Prescriptions: No Action loratadine 10 mg tablet 10 mg PO DAILY PRN (Reason: Allergies) lisinopril 10 mg tablet 10 mg PO DAILY Patient Comments: TAKE 1 TABLET BY MOUTH EVERY DAY metformin 500 mg tablet extended release 24 hr 2,000 mg PO DAILY metoprolol succinate 25 mg tablet extended release 24 hr 25 mg PO DAILY Patient Comments: TAKE 1 TABLET BY MOUTH EVERY DAY atorvastatin 80 mg tablet 80 mg PO QHS lilnjhxg-fqmj-UQ-calcium-mins 1 EACH tablet 1 ea PO DAILY Patient Comments: vitamin omeprazole 40 MG capsule,delayed release(DR/EC) 40 mg PO DAILY diltiazem HCl 120 MG capsule 120 mg PO DAILY apixaban 5 MG tablet 5 mg PO BID furosemide 40 mg tablet 80 mg PO BID insulin lispro [Humalog KwikPen Insulin] 100 unit/mL Insulin Pen 50 unit subcut TIDAC Qty: 0 0RF albuterol sulfate 2.5 mg /3 mL (0.083 %) solution for nebulization 2.5 mg inhalation Q4H PRN (Reason: SOB) furosemide 20 mg tablet 20 mg PO PRN PRN (Reason: Edema) fenofibrate nanocrystallized 145 mg tablet 145 mg PO DAILY Jardiance 10 mg tablet 10 mg PO DAILY citalopram 20 mg tablet 20 mg PO DAILY Toujeo Max U-300 SoloStar 300 unit/mL (3 mL) insulin pen 104 unit SUBCUT BID lorazepam 0.5 mg tablet 0.5 mg PO Q12H PRN (Reason: anxiety) Patient Comments: Take one (1) tablet by mouth every 12 hours, as needed for anxiety. PALLIATIVE PATIENT nicotine 21 mg/24 hr patch 24 hour 1 patch topical Q24H Ozempic 1 mg/dose (4 mg/3 mL) pen injector 1 mg SUBCUT .1XW potassium chloride 20 mEq tablet,ER particles/crystals See Rx Instructions .ROUTE .COMPLEX Qty: 60 0RF Dose Instruction: TAKE 1 TABLET BY MOUTH TWICE A DAY Rx Instructions: TAKE 1 TABLET BY MOUTH TWICE A DAY Primary Care Provider: Tino Oreilly Referrals: Tino Oreilly MD [Primary Care Provider] - Disposition Disposition: Acute Care Hospital [facility] What to do if you have Problems For any increased pain, shortness of breath, bleeding, nausea or vomiting, chestpain, or any unexpected problems, contact your Primary Care Provider. Call [facility] ([phone]) or report to the closest Emergency Room. Call 911 if necessary. 07/14/23 8938 <Electronically signed by Irina Quintero MD> Cosigner Signature (if applicable): CC: Dr. Tino Oreilly MD ~ Signed [facility] Work Phone: [phone]) 932-430408-14-2023 Discharge summary Author Irina Quintero [facility] July 14, 2023 4:18pm Note Date/Time July 14, 2023 11 :28am [facility] Medical Records Department [address] [place] [address] Emergency Department Summary 07/14/23 MR#: [id number] Acct: [id number] Name: MACARIO WALLACE Rep #:[id number] : 1975 48 From: Irina Quintero MD PCP: Dr. Tino Oreilly MD Status :ADM JACQUELYN Location: [address] History of Present Illness Chief Complaint: Chest Pain Detail of Chief Complaint: Chest pain and edema Informant: patient Narrative Narrative: Patient states that she had increasing edema for the past week. Last evening she started noticing some chest heaviness as well. Patient has a history of CHFand is on Lasix. In spite of this she will frequently require admission for IV Lasix drip. Patient states that she was hospitalized at a hospital in [place] 5 to 6 weeks ago on life support with another flare. She has noted recent weight gain. [facility] Medical History Abscess Abscess of vulva Acute on chronic respiratory failure with hypoxia and hypercapnia KERRY (acute kidney injury) Anemia Anxiety BiPAP (biphasic positive airway pressure) dependence BMI 60.0-69.9, adult Chronic diastolic (congestive) heart failure Chronic respiratory failure with hypoxia Congestive heart failure Contusion of knee, right COPD (chronic obstructive pulmonary disease) Depression Diabetes Dyspnea on exertion Essential hypertension GERD (gastroesophageal reflux disease) Hidradenitis History of diabetes mellitus History of left heart catheterization (LHC) (~01/05/19) History of MRSA infection Hyperglycemia due to type 2 diabetes mellitus Hyperlipidemia Hypertension Hypoxia Morbid obesity Morbid obesity Necrotizing soft tissue infection Non-healing open wound of left groin Noncompliance with CPAP treatment NSTEMI (non-ST elevated myocardial infarction) 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 Old myocardial infarction On home oxygen therapy Open wound of vulva with complication Opiate overdose Perianal abscess Pulmonary embolism Respiratory failure with hypoxia Restrictive lung disease secondary to obesity Sleep apnea Smoker Soft tissue abscess of inguinal region Tobacco abuse Type 2 diabetes mellitus Type 2 diabetes mellitus with hyperglycemia Venous stasis dermatitis of both lower extremities Home Medications multivit-iron 18 mg-folic acid 400 mcg-calcium 500 mg-minerals tablet 1 ea PO DAILY supplement 03/26/17 [History Last Taken 07/14/23] omeprazole 40 mg capsule,delayed release 40 mg PO DAILY GERD 12/15/18 [History Last Taken 07/14/23] loratadine 10 mg tablet 10 mg PO DAILY PRN Allergies 03/01/20 [History Last Taken 07/14/23] apixaban 5 mg tablet 5 mg PO BID blood thinner 08/20/20 [History Last Taken 07/14/23] diltiazem HCl 120 mg capsule,extended release 24 hr 120 mg PO DAILY heart rate 08/20/20 [History Last Taken 07/14/23] lisinopril 10 mg tablet 10 mg PO DAILY blood pressure 03/26/21 [History Last Taken 07/14/23] metformin 500 mg tablet,extended release 24 hr 2,000 mg PO DAILY diabetes 03/26/21 [History Last Taken 07/14/23] metoprolol succinate 25 mg tablet,extended release 24 hr 25 mg PO DAILY blood pressure 03/26/21 [History Last Taken 07/14/23] atorvastatin 80 mg tablet 80 mg PO QHS cholesterol 02/07/22 [History Last Taken 07/14/23] furosemide 40 mg tablet 80 mg PO BID diuretic 09/22/22 [History Last Taken 07/14/23] insulin lispro 100 unit/mL subcutaneous pen (Humalog KwikPen (U-100) Insulin) 50unit (0.5 mL) subcut TIDAC #0 mL 09/24/22 [Rx Last Taken 07/13/23] albuterol sulfate 2.5 mg/3 mL (0.083 %) solution for nebulization 2.5 mg inhalation Q4H PRN SOB 12/09/22 [History Last Taken 07/10/23] empagliflozin 10 mg tablet (Jardiance) 10 mg PO DAILY DM 12/09/22 [History Last Taken 04/23/23] fenofibrate nanocrystallized 145 mg tablet 145 mg PO DAILY CHOLESTEROL 12/09/22 [History Last Taken 07/14/23] furosemide 20 mg tablet 20 mg PO PRN PRN Edema 12/09/22 [History Last Taken Unknown] potassium chloride 20 mEq tablet,extended release(part/cryst) See Rx Instructions .Route .COMPLEX #60 TABLETS 06/20/23 [Rx Last Taken 07/14/23] citalopram 20 mg tablet 20 mg PO DAILY 07/14/23 [History Last Taken 07/14/23] insulin glargine U-300 conc 300 unit/mL (3 mL) subcutaneous pen (Toujeo Max U- 300 SoloStar) 104 unit subcut BID 07/14/23 [History Last Taken 07/13/23] lorazepam 0.5 mg tablet 0.5 mg PO Q12H PRN anxiety 07/14/23 [History Last Taken 07/13/23] nicotine 21 mg/24 hr daily transdermal patch 1 patch topical Q24H 07/14/23 [History Last Taken 07/13/23] semaglutide 1 mg/dose (4 mg/3 mL) subcutaneous pen injector (Ozempic) 1 mg subcut .1XW 07/14/23 [History Last Taken 07/13/23] Allergy/AdvReac Type Severity Reaction Status Date / Time cyclobenzaprine HCl Allergy Hives Verified 07/14/23 11:09 [From Flexeril] venlafaxine [From Effexor] AdvReac Severe unknown Verified 07/14/23 11:09 Family History Father CVA (cerebral vascular accident) Heart disease Diabetes Mother Thyroid disorder Surgical History H/O arthroscopic knee surgery History of delivery History of cholecystectomy Social History household members: none Smoking Status: Former smoker how long ago did patient quit smokin PPD smoker second hand exposure: Yes alcohol intake: never substance use type: does not use caffeine: Yes Type: carbonated beverages Number of servings: 1 and coffee Number of servings: 1 ROS ROS ED Constitutional Constitutional ED: Denies chills or fever(s) Eyes Eyes: Denies change in vision or discharge from eye(s) ENT ENT ED: Denies discharge from eye(s), rhinorrhea or sore throat Cardiovascular Cardiovascular: Reports chest pain; Denies palpitations Respiratory/Chest Respiratory/Chest: Reports dyspnea; Denies cough Gastrointestinal Gastrointestinal: Denies abdominal pain, diarrhea, nausea or vomiting Genitourinary Genitourinary ED: Denies dysuria Musculoskeletal Musculoskeletal: Reports extremity pain; Denies back pain Integumentary Reports other Details: Anasarca ; Denies Abrasions or rash Neurologic Neurologic: Reports weakness; Denies headache(s) Psychiatric Psychiatric: Denies anxiety or depression Allergic/Immunologic Allergic/Immunologic ED: Denies lip swelling or urticaria EXAM Physical Exam Const Vital Signs: 07/14/23 11:09 07/14/23 11:39 07/14/23 11:39 Temperature 96.4 F L Temperature Source Temporal Pulse Rate 84 69 Respiratory Rate 22 H 12 Respiratory Effort Blood Pressure 165/83 H 155/73 H Blood Pressure Mean 110 100 Pulse Ox 93 95 94 Oxygen Delivery Method Room Air Nasal Cannula Nasal Cannula Oxygen Flow Rate (L/min) 5 5 5 07/14/23 11:40 07/14/23 13:09 07/14/23 13:13 Temperature 97.8 F Temperature Source Oral Pulse Rate 65 66 Respiratory Rate 14 13 Respiratory Effort Short of Breath Labored Blood Pressure 139/69 H 139/69 H Blood Pressure Mean 92 92 Pulse Ox 96 95 Oxygen Delivery Method Nasal Cannula Nasal Cannula Oxygen Flow Rate (L/min) 5 5 07/14/23 14:20 07/14/23 14:20 Temperature 97.9 F 97.9 F Temperature Source Oral Oral Pulse Rate 69 68 Respiratory Rate 16 19 H Respiratory Effort Blood Pressure 147/72 H 147/72 H Blood Pressure Mean 97 97 Pulse Ox 94 94 Oxygen Delivery Method Nasal Cannula Nasal Cannula Oxygen Flow Rate (L/min) 5 5 Positive well nourished and well developed General Appearance ED: well developed HEENT Reports normocephalic and head/scalp atraumatic Eyes PERRL and EOMs intact bilaterally Neck supple Chest Wall inspection of chest normal and palpation of chest normal Resp normal respiratory effort and clear to auscultation bilaterally Cardio regular rate and regular rhythm GI non-tender Palpation: soft Extremity Extremity Narrative: 3+ bilateral lower extremity edema. Neuro oriented x3 Neuro Narrative: No focal neurologic deficits. Sensorium / Orientation: alert Motor Exam: strength 5/5 throughout Psych mental status grossly normal Skin no rashes or lesions noted MDM MDM MDM Narrative Medical decision making narrative: Patient placed on cardiac nurse. EKG obtained to evaluate for cardiac arrhythmia/ischemia. Labwork obtained to evaluate for leukocytosis, anemia, andelectrolyte derangement. Chest x-ray obtained to evaluate for acute lung pathology, cardiac size, or mediastinal abnormality. History & Record Review Discussion w/independent historian: Patient Additional record(s) reviewed:: Prior inpatient record, Prior ED visit and Priorlabs Lab Data Attestation: I reviewed the patient's lab results. Labs: Laboratory Results - last 24 hr 07/14/23 13:03 WBC 8.9 RBC 3.47 L Hgb 9.2 L Hct 30.8 L MCV 88.8 MCH 26.5 L MCHC 29.9 L RDW Std Deviation 58.5 H RDW Coeff of Darrion 18.4 H Plt Count 317 MPV 9.2 Immature Gran % (Auto) 3.900 H Neut % (Auto) 67.8 Lymph % (Auto) 21.4 Defiance % (Auto) 4.5 Eos % (Auto) 1.8 Baso % (Auto) 0.6 Absolute Neuts (auto) 6.1 Absolute Lymphs (auto) 1.91 Nucleated RBC % 0.2 Sodium 140 Potassium 4.4 Chloride 101 Carbon Dioxide 36.0 H Anion Gap 3 L BUN 19 H Creatinine 1.06 H Estim Creat Clear Calc 59.67 Est GFR (MDRD) Af Amer 72 Est GFR (MDRD) Non-Af 59 L BUN/Creatinine Ratio 17.9 Glucose 223 H Calcium 9.0 Troponin I High Sens 18 B-Natriuretic Peptide 40.4 Radiography Chest X-Ray - ED: 1 View, Read by ED Physician, Chronic Changes, Cardiomegaly and CHF Diagnostic Testing: Clinical Impression(s) from Imaging Studies Chest X-Ray 07/14/23 11:29 IMPRESSION: Vascular congestion and mild CHF. Electronically Signed: Dylan Gan MD at 11:49 EDT , EKG Initial EKG: Attestation: I personally reviewed and interpreted this EKG as follows: Interpretation: Sinus Rhythm (Sinus at 63 with no acute ischemia.) Treatment and Re-Evaluation :: CBC was normal white count 8.9 with a hemoglobin of 9.2. This appears to be consistent with her baseline. Chemistry studies reveal a bicarb of 36 with a BUN of 19 and a creatinine 1.06. Glucose is 223. Troponin is normal at 18. BNP is 40. Portable chest x-ray per my interpretation was chronic changes with cardiomegaly and mild CHF. Radiology interpretation is reviewed and agrees. On repeat evaluation patient's O2 sat is 91% on 4-1/2 L. Her legs are edematousand tense. I have seen this patient multiple times previously and although her BNP does not significantly elevate, it has been noted that she has been placed on Lasix drip in the hospital to get rid of excess of fluid with multiple litersdrained. I do feel that she does require IV Lasix at this time as she is currently on 80 mg of Lasix a day and still gaining weight and becoming more swollen. I will speak with the hospitalist. Discharge Plan Triage Chief Complaint: Chest Pain ED Provider: Irina Quintero Dx/Rx/DC Orders Clinical Impression: CHF (congestive heart failure), Chest pain Prescriptions: No Action loratadine 10 mg tablet 10 mg PO DAILY PRN (Reason: Allergies) lisinopril 10 mg tablet 10 mg PO DAILY Patient Comments: TAKE 1 TABLET BY MOUTH EVERY DAY metformin 500 mg tablet extended release 24 hr 2,000 mg PO DAILY metoprolol succinate 25 mg tablet extended release 24 hr 25 mg PO DAILY Patient Comments: TAKE 1 TABLET BY MOUTH EVERY DAY atorvastatin 80 mg tablet 80 mg PO QHS tuauoduz-kfeu-MC-calcium-mins 1 EACH tablet 1 ea PO DAILY Patient Comments: vitamin omeprazole 40 MG capsule,delayed release(DR/EC) 40 mg PO DAILY diltiazem HCl 120 MG capsule 120 mg PO DAILY apixaban 5 MG tablet 5 mg PO BID furosemide 40 mg tablet 80 mg PO BID insulin lispro [Humalog KwikPen Insulin] 100 unit/mL Insulin Pen 50 unit subcut TIDAC Qty: 0 0RF albuterol sulfate 2.5 mg /3 mL (0.083 %) solution for nebulization 2.5 mg inhalation Q4H PRN (Reason: SOB) furosemide 20 mg tablet 20 mg PO PRN PRN (Reason: Edema) fenofibrate nanocrystallized 145 mg tablet 145 mg PO DAILY Jardiance 10 mg tablet 10 mg PO DAILY citalopram 20 mg tablet 20 mg PO DAILY Toujeo Max U-300 SoloStar 300 unit/mL (3 mL) insulin pen 104 unit SUBCUT BID lorazepam 0.5 mg tablet 0.5 mg PO Q12H PRN (Reason: anxiety) Patient Comments: Take one (1) tablet by mouth every 12 hours, as needed for anxiety. PALLIATIVE PATIENT nicotine 21 mg/24 hr patch 24 hour 1 patch topical Q24H Ozempic 1 mg/dose (4 mg/3 mL) pen injector 1 mg SUBCUT .1XW potassium chloride 20 mEq tablet,ER particles/crystals See Rx Instructions .ROUTE .COMPLEX Qty: 60 0RF Dose Instruction: TAKE 1 TABLET BY MOUTH TWICE A DAY Rx Instructions: TAKE 1 TABLET BY MOUTH TWICE A DAY Primary Care Provider: Tino Oreilly Referrals: Tino Oreilly MD [Primary Care Provider] - Disposition Disposition: Acute Care Hospital [facility] What to do if you have Problems For any increased pain, shortness of breath, bleeding, nausea or vomiting, chestpain, or any unexpected problems, contact your Primary Care Provider. Call [facility] ([phone]) or report to the closest Emergency Room. Call 911 if necessary. 07/14/23 [id number] <Electronically signed by Irina Quintero MD> Cosigner Signature (if applicable): CC: Dr. Tino Oreilly MD ~ Signed [facility] Work Phone: [phone]) 327-873608-08-2023 Miscellaneous Notes* Telephone Encounter - Roc Stephens Ma - 07/08/2023 4:53 PM EDT PA sent from pharmacy for lancets/test strips. Pa was completed since patient already has working meter Completed through covermymeds Lancets foley: [id number] Was approved: Approvedto PA Case: [id number], Status: Approved, Coverage Starts on: 04/08/2023 12:00:00 AM, Coverage Ends on: 07/07/2024 12:00:00 AM. Test strips foley: [id number] Was approved: Approvedto PA Case: [id number], Status: Approved, Coverage Starts on: 04/08/2023 12:00:00 AM, Coverage Ends on: 07/07/2024 12:00:00 AM. Roc Stephens Ma documented in this encounterCleveland Clinic Foundation08-08-2023 Miscellaneous Notes* Telephone Encounter - Lula Sarmiento LPN - 07/08/2023 2:20 PM EDT Patient phones requesting refills as follows: Requested Prescriptions Pending Prescriptions Disp Refills nicotine (NICODERM) 21 mg/24 hr Sig: Apply 1 Patch as directed every 24 hours. HUMBLE 06/24/23 NOV 07/22/23 Please review and advise. Lula Sarmiento LPN * Telephone Encounter - Panfilo Oreilly MD - 07/08/2023 1:58 PM EDT She is in the process of being discharged but her next OV is within the 30 day window of care. * Telephone Encounter - Roc Stephens Ma - 07/08/2023 1:38 PM EDT Do no see you listed as pcp? But patient is scheduled to see you Roc Stephens Ma * Telephone Encounter - Vanessa Ruth - 07/08/2023 1:27 PM EDT Macario Wallace is calling Panfilo Oreilly MD today to request medication that does not appear on current med list: Nicotene Transdermal system patch 21 mg apply once daily Patient has been identified by name and birthdate. Duration of symptoms: ongoing Person calling: self Call patient at: at home [phone] (home) [phone] (cell) Was an appointment scheduled: No Closing statement: Results or non-symptom based questions: Thank you for calling [facility], your call will be returned within the next business day. Vanessa Domingo documented in this encounterCleveland Clinic Foundation08-08-2023 Miscellaneous Notes* Telephone Encounter - Cass Morin MA - 07/08/2023 1:40 PM EDT HUMBLE: 06/24/23 with CB NOV: 07/22/23 with CB Last refill: Lancets 12/21/21 With 200 and 3 refills Freestyle test strips 11/27/22 With 200 strips and 3 refills BD ultra Fine Corea 07/24/22 With 100 and 5 refills Ozempic 12/13/22 With 3 mL and 5 refills Humalog 10/30/22 With 15 and 5 refills Toujeo 04/21/23 With 21 mL and 0 refills Cass Morin MA * Telephone Encounter - Vanessa Ruth - 07/08/2023 1:19 PM EDT Patient has been identified by name and date of : Yes Requested Prescriptions Pending Prescriptions Disp Refills insulin glargine U-300 conc (TOUJEO MAX U-300 SOLOSTAR) 300 unit/mL (3 mL) inpn 21 mL 0 Sig: Inject 105 Units subcutaneously twice daily. insulin lispro (HUMALOG KWIKPEN INSULIN) 100 unit/mL 15 Each 5 Sig: Inject 50 units plus sliding scale three times daily before meals (Sliding scale: 2 units for every 50 points >150; TDD 150 units) semaglutide (OZEMPIC) 1 mg/dose (4 mg/3 mL) pen 3 mL 5 Sig: Inject 1 mg subcutaneously one time a week. This REPLACES Trulicity. Insulin Corea, Disposable, (BD ULTRA-FINE GABINO PEN NEEDLE) 32 gauge x 5/32" 100 Each 5 Sig: Inject 1 Each subcutaneously four times daily. use with insulin blood sugar diagnostic (FREESTYLE PRECISION JONAH STRIPS) test strip 200 Strip 3 Sig: To use 4 times daily to monitor glucose. Dx: uncontrolled type II DM, on insulin Lancets lancets 200 Each 3 Sig: Use to check blood sugars four times daily as instructed RX INSTRUCTIONS: Patient aware RX will be sent to pharmacy. No need to notify patient. Vanessa Domingo documented in this encounterCleveland Clinic Foundation07-21-2023 Miscellaneous Notes* Telephone Encounter - Annie Bey APRN.CNP - 06/20/2023 10:28 AM EDT The following approved medication requests have been transmitted electronically. Requested Prescriptions Pending Prescriptions Disp Refills flash glucose sensor (FREESTYLE BAO 14 DAY SENSOR) kit 2 Each 5 Si Each once daily. Use 1 device for up to 14 days to monitor sugars 4 times per day. Annie Bey APRN.CNP * Telephone Encounter - Mariam Meredith RN - 06/17/2023 10:53 AM EDT Patient has been identified by name and date of : Yes, Provider Ozzy Date 06-17-23 Time 10:55 am Pharmacy phones for refill(s): Requested Prescriptions Pending Prescriptions Disp Refills flash glucose sensor (FREESTYLE BAO 14 DAY SENSOR) kit 2 Each 5 Si Each once daily. Use 1 device for up to 14 days to monitor sugars 4 times per day. Date of last office visit with pcp: 03-11-23. Next appt: none Last 2 Encounter Wt Readings: Date: Wt: 03/11/2023 161.6 kg (356 lb 3.2 oz) 02/19/2023 172.5 kg (380 lb 4.7 oz) Previous labs/tests for medication: Diabetes: Hemoglobin A1C (%) Date Value 02/18/2023 8.4 11/11/2022 10.1 12/12/2021 10.0 08/01/2021 12.8 Please advise. Thank you. Mariam Meredith RN documented in this encounterCleveland Clinic Foundation07-07-2023 History of Present illness Narrative* Omaira Taveras RN - 06/06/2023 10:28 AM EDT TRANSITIONAL CARE MANAGEMENT (TCM) COMMUNITY MONITORING PROGRAM Provider Action/FYI: Will defer initial outreach to pt for OON hospital discharge. Pt was transferred to another hospital Copied from Care Everywhere [facility] 05/27/2023 8:24 PM EDT - 05/31/2023 5:00 PM EDT Principal problem: KERRY Discharge Disposition: Another Health Care Institution Not Defined [facility] 05/31/2023 5:51 PM EDT - Present Multiple tracheobronchial mucus plugs (Primary Dx); Acute respiratory failure with hypoxia and hypercapnia (CMS/HCC); Impaired mobility and ADLs Assessment/Comments: Macario Wlalace is a 47 y.o.female admitted as a transfer from [facility] for increasing shortness of breath. Pt was dialyzed, given levophed and ultimately intubated. PMH includes CHF, DM, LOGAN SUMMARY: Discharge Network Status: Bdr-na-Cxeqtca (OON) Discharge Pt discharged from [facility] on 05/31/23. Admitted for: KERRY Outreach ended documented in this encounterCleveland Clinic Foundation06-29-2023 Miscellaneous Notes* Telephone Encounter - Lula Cameron LPN - 05/29/2023 8:25 AM EDT Opened in error. Lula Cameron LPN documented in this encounterCleveland Clinic Foundation06-23-2023 Miscellaneous Notes* Telephone Encounter - Panfilo Oreilly MD - 05/23/2023 11:31 AM EDT PDMP website checked and validated. All prescriptions have been APPROPRIATELY filled. No suspiciousactivity was identified. 05/23/2023 by Panfilo Oreilly MD * Telephone Encounter - ISATU Nathan - 05/23/2023 11:29 AM EDT HUMBLE 03/11/23 NOV not scheduled Please review and advise. Thank you. ISATU Nathan * Telephone Encounter - Irina Reddy Pss - 05/23/2023 11:24 AM EDT Pharmacy verified in Epic Patient has been identified by name and date of : Yes Patient aware RX will be sent to pharmacy. No need to notify patient. Patient phones for refill(s): Requested Prescriptions Pending Prescriptions Disp Refills gabapentin (NEURONTIN) 800 mg tablet 90 tablet 0 Sig: Take 1 tablet by mouth three times daily. Date of last office visit : 03/11/2023 Date of next office visit : Visit date not found Last 2 Encounter Wt Readings: Date: Wt: 03/11/2023 161.6 kg (356 lb 3.2 oz) 02/19/2023 172.5 kg (380 lb 4.7 oz) Not applicable Please advise. Irina Reddy Pss documented in this encounterCleveland Clinic Foundation06-14-2023 Miscellaneous Notes* Telephone Encounter - Kimber Hendrickson MA - 05/14/2023 2:53 PM EDT DME forms signed by Dr. Oreilly and faxed to [facility]. Kimber Hendrickson MA documented in this encounterCleveland Clinic Foundation06-02-2023 Miscellaneous Notes* Telephone Encounter - Panfilo Oreilly MD - 05/02/2023 7:37 PM EDT Reviewed. I hope that is the case. * Telephone Encounter - Kallie Cali RN - 05/02/2023 1:26 PM EDT Aung, I am the home care nurse seeing this pt today. I was going to continue her home care services, (shewas due for recert today), but pt said she is going on a few weeks vacation to [place] and that her would "is doing really well, it's almost healed." And would not let me assess the wound today. I discharged her from home care. Thank you documented in this encounterCleveland Clinic Foundation06-02-2023 Miscellaneous Notes* SN Agency DC - Kallie Cali RN - 05/02/2023 12:22 PM EDT SITUATION: Alf agency discharge visit completed today. only patient also present during today's visit. patient reports the following: Allergies--reviewed Medications--full medication reconciliation completed Falls--None BACKGROUND: Reason for Home Care: CHF, COPD, DM monitoring/education, wound care ASSESSMENT: door open pt called for SN to enter Patient appears in no acute distress. Patient/CG concerns verbalized today: none Vitals (see flow sheet for details): stable SN findings today: pt pleasant. pt wearing 5L NC, pt denies SOB. pt has BG sensor and checks "frequently during the day" pt is non compliant with daily wts. SN taught pt importance of daily weights. pt refused to let SN assess cellulitis wound, pt states, "it is really all healed up." pt to be a recert today to continue home care, SN talked with pt about continuing home care services. pt states, "I don't think I need a nurse any more, I am better, and it's really all healed up. Also I am going to go to [place] for a vacation for a few weeks" SN reviewed d/c instructions wiht pt. SN gave pt phone number to contact [employer] if more supplies are needed. See intervention summary for education details and any skills performed. Specific SN discharge instructions: weight yourself daily, first thing in the AM, report wt gain >2lbs overnight or >5lbs in a week. report wt gain to Dr. Oreilly. check BG as orderd and reportabnormal readings. continue wound care as previously taught. monitor for s/sx of infection, report to dr. Patient encouraged to take all medication as ordered, eat a well-balanced diet and follow up with all physician appointments. NOMNC: patient requested discharge today, signed today Discharged due to per patient/caregiver request. Patient discharged from Home Care to: self-care RECOMMENDATION: Additional follow ups recommended: None Patient to follow up with Dr. Oreilly for additional medical questions/concerns. documented in this encounterCleveland Clinic Foundation05-31-2023 Miscellaneous Notes* Telephone Encounter - Kimberly Almodovar Ma - 04/30/2023 3:37 PM EDT Notified pt via [employer] Rx has been sent into the pharmacy. Kimberly Almodovar Ma * Telephone Encounter - Panfilo Oreilly MD - 04/29/2023 10:08 AM EDT PDMP website checked and validated. All prescriptions have been APPROPRIATELY filled. No suspiciousactivity was identified. 04/29/2023 by Panfilo Oreilly MD * Telephone Encounter - Lashon Overton LPN - 04/25/2023 2:47 PM EDT Patient has been identified by name and date of : Yes Patient phones for refill(s): Requested Prescriptions Pending Prescriptions Disp Refills gabapentin (NEURONTIN) 800 mg tablet 90 tablet 0 Sig: Take 1 tablet by mouth three times daily. Date of last office visit in primary care: 03/20/23 Last 2 Encounter Wt Readings: Date: Wt: 03/11/2023 161.6 kg (356 lb 3.2 oz) 02/19/2023 172.5 kg (380 lb 4.7 oz) Previous labs/tests for medication: Not applicable Please advise. Thank you. Lashon Overton LPN documented in this encounterCleveland Clinic Foundation05-29-2023 Miscellaneous Notes* PT EVALUATION - Thierno Tripathi, PT - 04/28/2023 12:21 PM EDT SITUATION: friend present during today's visit. patient reports the following since the last homecare visit: medications/allergies--no changes, no fall. patient reports she is feeling well and states he has energy today. BACKGROUND: Diagnoses (reason for Home Care): COPD Exacerbation, SOB Any one of the comorbidities from the list below may have a delete rious effect on the primary homecare diagnosis. Past Medical History: Calculus of Gallbladder Without Mention of Cholecystitis Or Obstruction Anxiety Logan (Obstructive Sleep Apnea) Essential Hypertension Gerd (Gastroesophageal Reflux Disease) Microalbuminuria Insomnia History of Tobacco Use Hyperlipidemia Type 2 Diabetes Mellitus With Diabetic Polyneuropathy, With Long-Term Current Use of Insulin (Hcc)Mgus (Monoclonal Gammopathy of Unknown Significance) Acute Pulmonary Embolism Without Acute Cor Pulmonale (Hcc) Adrenal Incidentaloma (Hcc) Obesity, Class III, BMI >= 40 Necrotizing Soft Tissue Infection Acute Respiratory Failure With Hypoxia (Hcc) Respiratory Acidosis Chronic Anemia Sepsis (Hcc) Nicotine use disorder, F17.2 Cellulitis Open Wound of Groin Weight Bearing or Surgical Precautions: fall risk ASSESSMENT: [facility] by [facility]. Reviewed and explained homecare services. Plan of care, goals, and visit frequency developed, reviewed, and agreed upon with patient and/or caregiver. Patient demonstrates safe home mobility, transfers and ambulation. Patient has improved TUG score as compared to last P.T. eval. Patient at this time does not require home P.T. and agrees to P.T. eval only. Patient Goal: is to improve mobility Patient will benefit from continued physical therapy to address the following deficits: strength, balance, gait, endurance, transfers, stair negotiation, aerobic capacity and bed mobility. Current Discharge Plan:family support. Anticipate discharge by 04/28/23 RECOMMENDATION: Next visit to focus on P.T. Eval only See intervention summary for intervention/education details. documented in this encounterCleveland Clinic Foundation05-27-2023 Miscellaneous Notes* SN JIGNESH - Jacquelin Mtz RN - 04/26/2023 10:41 AM EDT SITUATION: Alf JIGNESH visit completed today. daughter and son also present during today's visit. patient reports the following: Allergies--reviewed Medications--full medication reconciliation completed Falls--None DME-Reviewed BACKGROUND: Initial reason for home care: Acute on chronic respiratory failure with hypercapnia Perianal abscess JIGNESH today due to Discharged/Referral from acute care hospital on 04-25-23 following treatment for COPD Exacerbation. Pertinent referral information or other diagnoses that may affect plan of care: CHF DMII ASSESSMENT: SN greeted at door by caregiver. Upon entrance patient found in chair. Patient appears in no acute distress. Patient lives at home with family. Home environment: cluttered. Vitals (see flow sheet for details): stable SN findings today: Pt present today in her chair, she uses a rolator for assist her family is present she is wearing O2 at 5 NC con. She express she was given a diagnosis of CHF and COPD exacerbationin the hospital. SN educated Pt on CHF and COPD management. Pt expressed understanding See intervention summary for education details and skills performed. Plan of Care, progress towards goals, and visit frequency reviewed & updated with patient and agreed with plan of care. Home Care book updated. Patient demonstrated a need for further skilled SN services for chronic disease management & education, medication education and wound/skin care. RECOMMENDATION: Visit Frequency: 1x3 Need for additional services: Patient agreeable to PT referrals. Patient declined N/A referrals. Additional concerns to be followed up on: NONE Next visit to focus on (be specific): CHF and COPD education documented in this encounterCleveland Clinic Foundation05-10-2023 Miscellaneous Notes* SN Routine - Bonnie Yuen RN - 04/09/2023 1:06 PM EDT SITUATION: Alf routine visit completed today. only patient present during today's visit. patient reports the following: Allergies--reviewed Medications--reviewed current medications Falls--None BACKGROUND: Reason for Home Care: wound care and assessment ASSESSMENT: SN greeted at door by no one. Upon entrance patient found in chair Patient appears in no acute distress. Patient/CG concerns verbalized today: pt verbalizes that she was sick yesterday, she reports that she slept all day, could not eat and vomited up some mucus. She states that she feels better today. Vitals (see flow sheet for details): stable SN findings today: L groin wound is pink to light red and moist with a very light yellow drainage, no odor is noted today. Sn performed wound care, pt tolerated well. her roommate continues to help her with this daily. Pt reports that blood sugars have been up and down, was 201 this am. See intervention summary for education details. Patient demonstrated a need for further skilled SN services for wound/skin care. Current Discharge plan: self-care and family support RECOMMENDATION: Next visit to focus on (be specific): wound care and assessment documented in this encounterCleveland Clinic Foundation05-03-2023 Miscellaneous Notes* SN Routine - Bonnie Yuen RN - 04/02/2023 11:06 AM EDT SITUATION: Alf routine visit completed today. only patient present during today's visit. patient reports the following: Allergies--reviewed Medications--reviewed current medications Falls--None BACKGROUND: Reason for Home Care: wound care ASSESSMENT: SN greeted at door by no one. Upon entrance patient found in chair Patient appears in no acute distress. Patient/CG concerns verbalized today: Pt verbalizes that she feels some chest congestion today. Vitals (see flow sheet for details): stable SN findings today: Pt is sitting in recliner. SN performed wound care to L groin, wound is closing,there is a smal lamount of what appears to be serous drainge on removed dressing. Wound edges are slightly macerated. Wound bed is light red and appears to be granulating. Pt reports that blood sugarwas 219 this am. See intervention summary for education details. Patient demonstrated a need for further skilled SN services for wound/skin care. Current Discharge plan: self-care RECOMMENDATION: Next visit to focus on (be specific): wound assessment and care documented in this encounterCleveland Clinic Foundation04-28-2023 Miscellaneous Notes* Telephone Encounter - Hallie Martinez APRN.CNP - 03/28/2023 11:42 AM EDT PDMP website checked and validated. All prescriptions have been APPROPRIATELY filled. No suspiciousactivity was identified. 03/28/2023 by Hallie Martinez APRN.NIKIA * Telephone Encounter - Mehrdad Michael RN - 03/28/2023 11:00 AM EDT Patient has been identified by name and date of : Yes, Provider Dr Oreilly Date 03/28/23 Time 1106 Pharmacy phones for refill(s): Requested Prescriptions Pending Prescriptions Disp Refills citalopram (CELEXA) 20 mg tablet 90 tablet 3 Sig: Take 1 tablet by mouth once daily. metFORMIN ER (GLUCOPHAGE XR) 500 mg 24 hr tablet 360 tablet 3 Sig: Take 4 tablets by mouth every morning. lisinopril (ZESTRIL) 10 mg tablet 90 tablet 3 Sig: Take 1 tablet by mouth once daily. atorvastatin (LIPITOR) 80 mg tablet 90 tablet 3 Sig: Take 1 tablet by mouth once daily. fenofibrate nanocrystallized (TRICOR) 145 mg tablet 90 tablet 3 Sig: Take 1 tablet by mouth once daily. gabapentin (NEURONTIN) 800 mg tablet 90 tablet 3 Sig: Take 1 tablet by mouth three times daily. Date of last office visit in primary care: 03/11/23 Future visit: 04/08/23 Last 2 Encounter Wt Readings: Date: Wt: 03/11/2023 161.6 kg (356 lb 3.2 oz) 02/19/2023 172.5 kg (380 lb 4.7 oz) Previous labs/tests for medication: Diabetes: Hemoglobin A1C (%) Date Value 02/18/2023 8.4 11/11/2022 10.1 12/12/2021 10.0 08/01/2021 12.8 Cholesterol: HDL Cholesterol (mg/dL) Date Value 12/12/2021 34 HDL Cholesterol, Nonfasting (mg/dL) Date Value 02/18/2023 37 LDL Cholesterol (mg/dL) Date Value 12/12/2021 48 LDL Cholesterol, Nonfasting (mg/dL) Date Value 02/18/2023 87 ALT (U/L) Date Value 02/18/2023 12 12/12/2021 19 Non HDL Cholesterol, Nonfasting (mg/dL) Date Value 02/18/2023 111 08/01/2021 185 Non HDL Cholesterol (mg/dL) Date Value 12/12/2021 100 Blood Pressure: BUN (mg/dL) Date Value 02/20/2023 8 01/23/2022 21 Sodium (mmol/L) Date Value 02/20/2023 137 01/23/2022 134 Last 1 Encounter BP Readings: Date: BP: 03/26/2023 132/78 Please advise. Thank you. Mehrdad Michael RN documented in this encounterCleveland Clinic Foundation04-27-2023 Miscellaneous Notes* Letter - Conrado Sellers MD - 03/27/2023 12:57 PM EDT [facility] [address] [place], [place] [id number] DATE: 03/26/2023 FACILITY: [facility]. Patient: MACARIO WALLACE Date of Service: 01/13/2023 to 01/16/2023 Dear Reviewer: Please accept this letter of appeal for services which have been denied. Clinical information: Macario Wallace is a 47-year-old female, who has DM2, HFpEF, HTN, HLP, COPD (3 L NC ATC), morbid obesity (BMI 63.4), and DVT/PE (on Eliquis); she also has suffered an NSTEMI with respiratory illness. She presented to the ED on December 25, 2022, having been referred from an outside hospital with a necrotizing soft tissue infection of the L inner thigh with sepsis: leukocytosis 17.0, lactate 3.3, creatinine 1.7, and a positive CT scan with evidence of necrotizing infection. She underwent emergency surgery with debridement of L medial thigh for purulent necrotizing infection; following this debridement, the wound measured 8 x 2 x 4 cm. She was returned to the O.R. the following day, December 26, for EUA and debridement; a York drain was left in the L inguinal area at that time. Ms. Wallace had continued tachycardia, low-grade fevers, and leukocytosis 15.8. She required postop ventilatory support; and failed a spontaneous breathing trial on December 28, 2022. She had been started on broad-spectrum antibiotic therapy preoperatively with IV vancomycin, Zosyn, and clindamycin. The Zosyn and clindamycin were continued postop. She also was treated with IV Lasix 40 mg q.12h for volume overload with evidence of pulmonary edema on CXRs. She was successfully extubated on December 30, 2022 and placed on 4 L then 3 L NC. She was able to be transferred to the [facility] on December 31, 2022. Operative cultures were positive for Strep anginosus. The drain in the L inguinal wound was removed on January 01, 2023, and she was deemed safe for discharge at that time. Ms. Wallace was seen in the OP surgical clinic for followup on January 13, 2023 and was found to have a "new abscess" in the R inner thigh, along with increased drainage (purulent) from the L inguinal area over the previous couple days. WBC count was 9.6 at that time and she was started on IV Zosyn. She underwent urgent surgery on January 14, 2023 for I&D of bilateral groins with wet-to-dry packing in the L groin and iodoform gauze for the R side. She also had a small open wound in the L perineum. She had evidence of healthy granulation tissue in the L groin with a few loculations that were released; and 2 small lesions on the R inner thigh/groin. And there was some purulent vaginal discharge. Gram stain from surgery was positive for GPC and she was treated with IV Zosyn and Diflucan. The packing was changed the following day and the wounds looked satisfactory. She was deemed safe for discharge to home on January 16, 2023 with p.o. Bactrim b.i.d. x 5 days. The hospital admission of December 25, 2022 to January 01, 2023 was required for emergency surgery for necrotizing infection of the L inner thigh/groin area, followed by a second surgery the next day for additional debridement. Ms. Wallace was on IV antibiotics until December 30, 2022, and also required continued mechanical ventilatory support until that day. At the time of discharge on January,, the wound looked very satisfactory, WBC count was downtrending toward normal, and there was no evidence of ongoing infection. Her hospital admission on January 13, 2023, was necessitated by the development of a new abscess in the opposite groin area, along with purulent drainage from the L si de. She required urgent surgery for I&D of bilateral groin/inner-thigh areas and IV antibiotic therapy. At the time of discharge on January 01, 2023, she had been doing very well, without ongoingwound drainage. The hospital admission of January 13, 2023 to January 16, 2023, is neither an extension nor continuation of that of December 25, 2022 to January 01, 2023; and was not preventable or a voidable. [facility] request your kind reconsideration of this case; and full proper reimbursement for the inpatient admission of January 13, 2023 to January 16, 2023. A review of the enclosed documentation will support these statements. Please send your response to [facility], Payer [facility]ial Management, [address] [place] [address]. If additional information is needed please contact me at [phone]. Sincerely, Conrado Sellers M.D. [place] [address] [email or web address] documented in this encounterCleveland Clinic Foundation04-21-2023 Miscellaneous Notes* SN Routine - Bonnie Yuen RN - 03/21/2023 1:05 PM EDT SITUATION: Alf routine visit completed today. only patient present during today's visit. patient reports the following: Allergies--reviewed Medications--reviewed current medications Falls--None BACKGROUND: Reason for Home Care: wound assessment and care ASSESSMENT: SN greeted at door by no one. Upon entrance patient found in chair Patient appears in no acute distress. Patient/CG concerns verbalized today: pt reports that she was not able to gt to the Dr yesterday because of a transportation issue. She reports that cg noted "pus" for a few days this week in the groin wound. Vitals (see flow sheet for details): stable SN findings today: Pt is sitting in recliner. Wound care completed to L groin by SN and no ourulentdrainage or odor is noted today. Pt is waiting for wound center to call back with another appt. Pt has 2 lower legs wounds. She has already done the wound care today but peeled back the adhesive foamdressings to SN to examine. the R lower leg wound pt reports was a blister that ruptured, the woundbed is a light brennan color, no active drainage is noted. The L lower leg wound has the appearance of a skin tear and pt reports that she dropped a small machine on her leg. The wound bed is pink, scantamount of serous drainage. 1+ edema noted to lower legs today, minimal edema to feet. Pt reports that her blood sugars have mostly been in the 100 range, was 119 this am. Shestates that afternoon readings can be in the 200's though. See intervention summary for education details. Patient demonstrated a need for further skilled SN services for chronic disease management & education, medication education, wound/skin care and safety. Current Discharge plan: self-care RECOMMENDATION: Next visit to focus on (be specific): wound assessment and care documented in this encounterCleveland Clinic Foundation04-19-2023 Miscellaneous Notes* CARE COORDINATION - PER [place] - 03/19/2023 2:00 PM EDT 03/19/23 2:05 PM - 2:08 PM RAKING MACHINE OPERATOR called the pt. regarding if she needed transportation and if her daughter told her RAKING MACHINE OPERATOR called regarding this. The pt. stated her daughter told her RAKING MACHINE OPERATOR called. The pt. stated she did not need transportation. The pt. is aware of [employer] providing transp ortation to medical appointments. RAKING MACHINE OPERATOR informed the pt. that RAKING MACHINE OPERATOR spoke to Brandy Vailspenser her Waiver Caust[employer] Loader with [facility] regarding transportation and Waiver is payor of last resort. RAKING MACHINE OPERATOR asked the pt. if they had found an Aide yet under Waiver. The pt. stated she is talking to an Aide today that is an Independent Provider regarding being her Aide under Wa iver. RAKING MACHINE OPERATOR informed the pt. to call RAKING MACHINE OPERATOR with any needs. 03/19/23 RAKING MACHINE OPERATOR messaged JULIA RodriguezRAKING MACHINE OPERATORKip Villeda regarding above phone call with the pt. documented in this encounterCleveland Clinic Foundation04-14-2023 Miscellaneous Notes* SN Routine - Bonnie Yuen RN - 03/14/2023 2:21 PM EDT SITUATION: Alf routine visit completed today. family members also present during today's visit. patient reports the following: Allergies--reviewed Medications--reviewed current medications Falls--None BACKGROUND: Reason for Home Care: wound assessment ASSESSMENT: SN greeted at door by no one. Upon entrance patient found in chair Patient appears in no acute distress. Patient/CG concerns verbalized today: no soecial concerns Vitals (see flow sheet for details): stable SN findings today: Pt is sitting in recliner. She reports that the pain level in wound has been more tolerable. she is positioning for comfort and taking tylenol. L groin wound is red and moist thereis epithelial tissue formin at wound edges. Cg assisting pt with wound care every day. Pt reports that blood sugars havee been in the mid 100 range for the most part but did have a reading of 319 first thing this morning. See intervention summary for education details. Patient demonstrated a need for further skilled SN services for wound/skin care. Current Discharge plan: self-care RECOMMENDATION: Next visit to focus on (be specific): wound assessment and care. documented in this encounterCleveland Clinic Foundation04-12-2023 Miscellaneous Notes* Telephone Encounter - Panfilo Oreilly MD - 03/12/2023 3:46 PM EDT Signed as requested. * Telephone Encounter - Kimber Hendrickson MA - 03/12/2023 3:42 PM EDT Given to Dr. Oreilly for review and signature. Will fax once signed. Kimber Hendrickson MA * Telephone Encounter - Tri Sorensen RN - 03/12/2023 3:27 PM EDT Giselle Goldberg calling to state she will be dropping off paperwork for Dr. Oreilly to review and sign regarding a new non-invasive ventilator for patient. Tri Sorensen RN documented in this encounterCleveland Clinic Foundation04-12-2023 Miscellaneous Notes* PT EVALUATION - Devin Barragan, PT - 03/12/2023 12:52 PM EDT SITUATION: roomate present during today's visit. patient reports the following since the last homecare visit: medications/allergies--no changes, no fall. patient reports I have been getting around really well since coming home from the hospital. BACKGROUND: Diagnoses (reason for Home Care): Acute on chronic respiratory failure with hypercapnia Perianal abscess Any one of the c omorbidities from the list below may have a deleterious effect on the primary homecare diagnosis. ACTIVE PROBLEM LIST Calculus of Gallbladder Without [...] (Hcc) Obesity, Class III, BMI >= 40 Necrotizing Soft Tissue Infection Acute Respiratory Failure With Hypoxia (Hcc) Respiratory Acidosis Chronic Anemia Sepsis (Hcc) Nicotine use disorder, F17.2 Cellulitis Open Wound of Groin Weight Bearing or Surgical Precautions: Fall risk ASSESSMENT: Patient evaluated by [facility]. Reviewed and explained homecare services. Plan of care, goals, and visit frequency developed, reviewed, and agreed upon with patient and/or caregiver. Patient demonstrated safe functional mobility inside her home. She required stand by assistance when ascending/descending stairs to enter/exit home. Patient instructed on standing exercises to increase/maintain BL LE strength. Patient denies need for any additional HHPT. Patient Goal: To get stronger Patient will benefit from continued physical therapy to address the following deficits: strength and stair negotiation. Current Discharge Plan:independent with home exercise program. Anticipate discharge by 03/12/23 RECOMMENDATION: Next visit to focus on PT Evaluation only. Patient denies need for any additional HHPT. See intervention summary for intervention/education details. documented in this encounterCleveland Clinic Foundation04-12-2023 Miscellaneous Notes* Telephone Encounter - Sandra Potts LPN - 03/12/2023 10:22 AM EDT Faxed at this time. Sandra Potts LPN * Telephone Encounter - Hallie Martinez APRN.CNP - 03/12/2023 7:32 AM EDT Please fax recent office note with DME orders to [phone] TTN: Thang Laureano. All papers in my outbox. Hallie Martinez APRN.CNP documented in this encounterBrittany Ville [address]-11-2023 Instructions* Patient Instructions* Hallie Martinez APRN.CNP - 03/11/2023 12:06 PM EDT Counseling and Psychiatry Services [facility] [address] [place] [address] *counseling [facility] [address] [facility] [address] *counseling [address] [address] *counseling [facility] [place] [address] [place], [place] [id number] *counseling and psychiatry [address] [address] *counseling [address] [address] *counseling [place] [address] [facility] [address] *counseling [place] [address] [place] [address] *counseling [facility] [address] [place] [address] [facility] [address] [facility], [address] [place] [address] *counseling [facility] [address] [place] [address] [facility] [address] [place], [place] [address] *counseling [facility] [address] [facility] [address] [place] [address] [facility] [address] [facility] [address] [place] [address] *counseling [employer] [facility] [address] [place] [address] *counseling [facility] [address] [place] [address] *counseling and psychiatry [facility], [address] [place], [place] [id number] *psychiatry [facility] [phone] *grief counseling, individual and groups *If you ever experience a mental health crisis please call [phone] 911, Please verify with insurance provider for coverage documented in this encounterCleveland Clinic Foundation04-11-2023 History of Present illness Narrative* Hallie Martinez APRN.CNP - 03/11/2023 11:44 AM EDT 03/11/2023 Patient presents with: Hospital F/U: [facility] dx: pneumonia Discharged on 03/05/2023 Completed prednisone SUBJECTIVE: This is a 47 year old that is here today for Above Complaints. Since last office visit on 02/18/2023 patient has been hospitalized several times with most recent hospitalizations on 03/05/2023 for pneumonia Discharged on 03/05/2023. Sent home on prednisone which she completed. Currently on O2@5L/NC. Is weaning herself down to 3-4L/NC and staying around 93- 94%. Feels improved- more energy. Denies fevers, chills, increasing SOB from baseline, dyspnea, wheezing cough, chest pain, or palpitations.Uses CPAP nightly with 3L/NC. Someday's 1 -2 cigarettes a day other days does not smoke at all. Working towards complete smoking cessation. Reports she has upcoming appointment with her ore miner, however unsure when appointment is Continues to see wound care at [facility] on as well as home nurse twice a week for healing abscess wound of left groin. Changing dressing daily. Denies fevers, chills, increasing drainage, tenderness or surrounding erythema to wound or excessive warmth to area. Supposed to start PT at home. Patient reports PT wanted to start on Easter with her, however she wanted to celebrate with family. Patient reports they have not called back to reschedule as of today. Uses a wheeled walker to get around at home. Patient reports pats hx of falls at home due balance and "knots on her feet" which make it difficult to balance herself. Reports painful to walk on her feet. Has difficulty going out shopping- can walk short distances but if walks more brennan 30-40 feet before needs to rest due to pain and shortness of breath. Requesting lift chair, tub bench hospital bed and scooter to assist with getting up and mobility when out. Reports difficult time getting out of bed when laying flat or rising when chair. Reports pain to legs, knee, and back as well as increasingshortness of breath with these activities. Also needs incontinence supplies due to urinary stress incontinence. Awaiting approval for home health aid for 28 hours a week- gooing to help with bathing and chores around the house Patient reports feeling depressed and anxious given all her health problems. Not currently on any medications. Interested in starting medication. Not currently attending counseling. Denies SI, HI or insomnia Patient with frequent missed appointments. Reports family members agree to take her to appointment but then do not follow through. She reports she was made aware by onsite case manager she can call and set up rides through their service to assist to getting to appointments. Available hospital records reviewed. 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/2019 Left, small lesion on CT Anxiety Cholecystitis s/p cholecystectomy Diabetes mellitus without mention of complication Diabetic neuropathy ([facility]) Seeing Neurology Diastolic heart failure ([facility]) GERD (gastroesophageal reflux disease) History of abnormal cervical Pap smear History of tobacco use Hyperlipidemia Insomnia Microalbuminuria Morbid obesity ([facility]) Narcotic abuse ([facility]) Non-STEMI (non-ST elevated myocardial infarction) ([facility]) 2/2 respiratory illness LOGAN (obstructive sleep apnea) using CPAP, Dr. Dumont Pulmonary embolism ([facility]) Seasonal allergies Unspecified essential hypertension ALLERGIES Flexeril [Cyclobenzaprine Hcl] and Zoloft [Sertraline] MEDICATIONS Current Outpatient Medications Medication Sig predniSONE (DELTASONE) 20 mg tablet Take 40 mg by mouth once daily. 40 mg by mouth with breakfast for 5 days ammonium lactate (LAC-HYDRIN) 12 % lotion Apply 1 application to affected area three times daily. Apply to bilateral lower extremities empagliflozin (JARDIANCE) 10 mg tablet Take 10 mg by mouth daily with breakfast. OXYGEN, HOME THERAPY, 3 L/min by Nasal Cannula route continuous. 3-5L per pulse ox and oxygen requirements omeprazole (PRILOSEC) 40 mg capsule Take 1 [...] daily. lisinopril (ZESTRIL, PRINIVIL) 10 mg tablet Take 1 tablet by mouth once daily. fenofibrate nanocrystallized (TRICOR) 145 mg tablet Take 1 tablet by mouth once daily. atorvastatin (LIPITOR) 80 mg tablet Take 1 tablet by mouth once daily. flash glucose sensor (FREESTYLE BAO 14 DAY SENSOR) kit 1 Each once daily. Use 1 device for up to 14 days to monitor sugars 4 times per day. gabapentin (NEURONTIN) 800 mg tablet TAKE 1 TABLET BY MOUTH THREE TIMES A DAY semaglutide (OZEMPIC) 1 mg/dose (4 mg/3 mL) pen Inject 1 mg subcutaneously one time a week. This REPLACES Trulicity. furosemide (LASIX) 20 mg tablet Take 1 tablet by mouth twice daily. Take BID with 80 mg lasix to equal 100 mg BID flash glucose scanning reader (InsureWorxSTYLE BAO 14 DAY READER) 1 Device four times daily. blood sugar diagnostic (FREESTYLE PRECISION JONAH STRIPS) test strip To use 4 times daily to monitor glucose. Dx: uncontrolled type II DM, on insulin insulin glargine U-300 conc (TOUJEO MAX U-300 SOLOSTAR) 300 unit/mL (3 mL) inpn Inject 105 Units subcutaneously twice daily. insulin lispro (HUMALOG KWIKPEN INSULIN) 100 unit/mL Inject 50 units plus sliding scale three timesdaily before meals (Sliding scale: 2 units for every 50 points >150; TDD 150 units) (Patient taking differently: Inject subcutaneously. Inject 50 units plus sliding scale three times daily before meals (Sliding scale: 2 units for every 50 points >150; TDD 150 units)) albuterol (PROVENTIL) 2.5 mg /3 mL (0.083 %) nebulizer solution Use 3 mL via nebulizer every 2 hours as needed for wheezing/shortness of breath. Use over 5-15minutes. Insulin Corea, Disposable, (BD ULTRA-FINE GABINO PEN NEEDLE) 32 gauge x 5/32" Inject 1 Each subcutaneously four times daily. use with insulin famotidine (PEPCID) 20 mg tablet Take 1 tablet by mouth at bedtime as needed. furosemide (LASIX) 40 mg tablet Take 1-2 tablets BID for lower extremity edema WALKER ROLLATOR SEAT WITH 6" WHEELS - RED Patient requires large seat Lancets lancets Use to check blood sugars four times daily as instructed cholecalciferol, Vitamin D3, (VITAMIN D3) 1,250 mcg (50,000 unit) cap capsule Take 1 capsule by mouth one time a week. For 12 weeks potassium chloride 20 mEq TbER Take 1 tablet by mouth twice daily. multivitamin tablet Take 1 tablet by mouth once daily. Compression Knee Highs KNEE HIGH [...] Not Currently Comment: rarely Drug use: No REVIEW OF SYSTEMS All other reviewed and negative other than HPI. OBJECTIVE: BP 132/70 Pulse 91 Temp 36.2 C (97.2 F) Resp 18 Wt (!) 161.6 kg (356 lb 3.2 oz) LMP 10/10/2016 SpO2 97% BMI 59.27 kg/m . Vital signs reviewed by this provider. APPEARANCE Well appearing, alert, in no acute distress, well-hydrated, well nourished. and Morbidlyobese EYES PERRLA, conjunctiva and sclera normal. HEART RRR with normal S1 and S2, no murmurs, no gallops, no JVD appreciated LUNG Diminished posteriorly throughout. No wheezes, rhonchi or rales auscultated. EXTREMITIES Trace edema to BLE. No "knots" noted to soles of feet SKIN Skin color, texture, turgor normal, no suspicious rashes or lesions to exposed skin GROIN: Left groin area covered with dry dressing. No surrounding erythema or tenderness PSYCH: Posture and motor behavior: normal posture and motor behavior Dress, grooming, personal hygiene: normal dress and grooming Facial expression: good eye contact Speech: normal speech Mood: flat affect and tearful at times Coherency and relevance of thought: normal thought processes Memory: normal memory HEPATITIS B(1 of 3 - 3-dose series) Never done DILATED RETINAL EXAM Never done MAMMOGRAM due on 10/09/2018 COVID-19 VACCINE(3 - Booster for Damir series) due on 03/15/2022 COLORECTAL CANCER SCREENING Never done DEPRESSION ASSESSMENT Never done BP CONTROLLED (<130/80) due on 12/12/2022 PAP TESTING due on 04/30/2023 HPV TESTING due on 04/30/2023 HBA1C due on 05/21/2023 URINE ALBUMIN:CREATININE RATIO due on 07/09/2023 DIABETIC FOOT EXAM due on 12/25/2023 LDL CHOLESTEROL due on 02/19/2024 ANNUAL PCP TEAM CHRONIC DISEASE VISIT due on 03/11/2024 DTAP,TDAP,TD(2 - Td or Tdap) due on 07/01/2027 PNEUMOCOCCAL(3 - PPSV23 if available, else PCV20) due on 2042 INFLUENZA Completed HEPATITIS C SCREENING Completed HIV SCREENING Completed ASSESSMENT/PLAN: 1. Hospital discharge follow-up - ICD9: V67.59, ICD10: Z09 (primary diagnosis) - plan as below 2. Morbid obesity (HCC) - ICD9: 278.01, ICD10: E66.01 Weight decreasing - Behavioral intervention - DME SUPPLY OR ACCESSORY, NOS - Lengthy discussion in office today regarding diet and exercise. Discussed use of small plate to eat meals from, drink 1 glass of water 10-15 minutes prior to eating meal, drink 8 glasses of water daily, eat fresh fruit and vegetable during meal first then lean protein such as grilled/baked chicken breast or fish, limit carbohydrate intake (less pasta, breads, rice and snack foods) as well as limiting sugars (desserts etc). Important to count / track your calories and exercise as well. 3. Open wound of inguinal region, sequela - ICD9: 906.0, ICD10: S31.109S - no red flag symptoms or exam findings - red flag symptoms discussed, verbalizes understanding - continue with home health and wound care as scheduled, to ER with red flag symptoms - INCONTINENCE SUPPLY 4. Pneumonia due to infectious organism, unspecified laterality, unspecified part of lung - ICD9: 486, ICD10: J18.9 - improved - no red flag symptoms or exam findings - red flag symptoms discussed, verbalizes understanding - continue oxygen as prescribed - follow-up with ore miner as scheduled to ER with red flag symptoms 5. Oxygen dependent - ICD9: V46.2, ICD10: Z99.81 - follow-up with ore miner as scheduled - SEAT LIFT MECHANISM COMBL - HOSP BED W MATTR FULL ELECTRIC - DME SUPPLY OR ACCESSORY, NOS 6. Impaired ambulation - ICD9: 719.7, ICD10: R26.2 - work with PT on strengthening and improving balance - INCONTINENCE SUPPLY - SEAT LIFT MECHANISM COMBL - HOSP BED W MATTR FULL ELECTRIC - DME SUPPLY OR ACCESSORY, NOS 7. Stress incontinence - ICD9: [id number], ICD10: N39.3 - INCONTINENCE SUPPLY 8. Anxiety and depression - ICD9: 300.00, 311, ICD10: F41.9, F32.A - Discussed concept of neurochemical imbalance wth depression/anxiety - Option of Medication use discussed - Risks/benefits of SSRIs - Common side effects - Sleep Hygeine - advised counseling to improve management of stressors- handout of local counseling centers provided - Instructed patient to contact office or [id number] after-hours promptly should condition worsen or any new symptoms appear. - [facility] and after hours crisis line - German[employer]kraig plummer phone number or - CITALOPRAM 20 MG TABLET - follow-up in one month, sooner if needed 9. Failure to attend appointment with reason given - ICD9: V15.81, ICD10: Z91.198 - discussed at length with patient about the importance of attending scheduled appointments and theneed to have reliable transportation. She is agreeable to call for rides at number given by onsite case manager. Discussed is she is unable to make appointments she needs to call in advance to cancel - discussed with patient is she continues to not show up for appointments and does not cancel she may be asked to find another provider, verbalizes understanding Hallie Martinez APRN.CNP Prescription instructions reviewed with patient as applicable. Patient advised if symptoms do not improve or if symptoms worsen sooner, to contact their primary care physician. Potential red flag symptoms discussed with the patient. Reviewed appropriate action plan to take if red flag symptoms occur. Patient agreeable to treatment plan. I spent a total of 60 minutes on the date of the service which included preparing to see the patient, [id number] patient care, completing clinical documentation, obtaining and/or reviewing separately obtained history, performing a medically appropriate examination, counseling and educating the pat ient/family/caregiver, ordering medications, tests, or procedures, and care coordination (not separately reported). documented in this encounterCleveland Clinic Foundation04-10-2023 Miscellaneous Notes* SN Routine - Chey Acharya RN - 03/10/2023 11:19 AM EDT SITUATION: Alf routine visit completed today. only patient also present during today's visit. patient reports the following: Allergies--reviewed Medications--reviewed current medications Falls--None DME-Reviewed and added to chart BACKGROUND: Reason for Home Care: Acute on chronic respiratory failure with hypercapnia, Perianal abscess . ASSESSMENT: SN greeted at door by patient utilizing walker and demonstrates stable gait. Patient appears in no acute distress. Patient/CG concerns verbalized today: none Vitals (see flow sheet for details): stable SN findings today: Patient pleasant and cooperative with SN assessment. Wound care provided this visit. No aquacel available in home or in SN car stock so wet to dry dressing done. Sn ordered Aquacelfrom Ronaldo this visit. SN educated patient on S&S of infection and increasing protein in diet. Patient is monitoring blood sugars regularly, Sn educated on importance of following diabetic diet and impact of uncontrolled diabetes on wound healing, patient verbalizes understanding. SN educated patient on S&S of sepsis and when to report. No other questions or concerns at this time. See intervention summary for education details. Patient demonstrated a need for further skilled SN services for chronic disease management & education, medication education, wound/skin care and safety. Current Discharge plan: self-care and family support RECOMMENDATION: Next visit to focus on (be specific): wound care, bring aquacel, sepsis education, DM edcuation documented in this encounterCleveland Clinic Foundation04-08-2023 Miscellaneous Notes* Telephone Encounter - Moni Sanches - 03/08/2023 2:47 PM EDT Attempted to schedule PT eval today. Patient declined and prefers another day. Thanks, Dru Snaches, bus company manager. documented in this encounterCleveland Clinic Foundation04-07-2023 Miscellaneous Notes* SN SOC - Chey Acharya RN - 03/07/2023 11:09 AM EDT SITUATION: Alf SOC visit completed today. friend also present during today's visit. patient reports the following: Allergies--reviewed Medications--full medication reconciliation completed Falls--None DME-Reviewed and added to chart BACKGROUND: Discharged/Referral from acute [facility] on 03/05/23 following treatment for Acute on chronic respiratory failure with hypercapnia Perianal abscess . Pertinent referral information or other diagnoses that may affect plan of care: Calculus of Gallbladder Without Mention of Cholecystitis [...] (Hcc) Obesity, Class III, BMI >= 40 Necrotizing Soft Tissue Infection Acute Respiratory Failure With Hypoxia (Hcc) Respiratory Acidosis Chronic Anemia Sepsis (Hcc) Nicotine use disorder, F17.2 Cellulit is Open Wound of Groin ASSESSMENT: SN greeted at door by n/a patient called for Sn to enter Patient appears in no acute distress. Patient lives at home with roomate. Home environment: dirty, cluttered and has pets: 1 dog. SOC booklet reviewed & completed with patient and consent obtained for Home Care services. Patient/CG concerns verbalized today: none Vitals (see flow sheet for details): stable SN findings today: Patient pleasant and cooperative with SN assessment. Patient lives with two other adults in one story home. Patient states her roommate is a paraplegic but does her wond care when SN is not available. Patient has rollator for ambulation but does not use during SN visit. Sn educated patient on using rollator and assist of 1, pacing activities and keeping paths clear to prevent falls. Patient is A&Ox4, HRR, LCTA, BSx4. Patient has left pelvic insicion, wound care performed per orders, patient tolerated well. Patient also has left tibial venous ulcer intact with no drainage noted. SN educated patient/caregiver on S&S of infection and when to notify physician. Patientstates she has all supplies in home except for Aquacel. Patient has Bao to [employer] and states she checks blood sugars regularly. SN reviewed S&S of hypo/hyperglycemia and when to report. Medications reviewed and updated. No other questions or concerns at this time. See intervention summary for education details and skills performed. Plan of care and visit frequency established with patient and plan of care agreed upon. Patient demonstrated a need for further skilled SN services for chronic disease management & education, medication education, wound/skin care and safety. RECOMMENDATION: Visit Frequency: SN 1w1, 2w1, 1w8, 3prn Need for additional services: Patient agreeable to PT referrals. Patient declined N/A referrals. Additional concerns to be followed up on: NONE Next visit to focus on (be specific): wound care, dm education, sepsis education documented in this encounterCleveland Clinic Foundation04-07-2023 Miscellaneous Notes* CARE COORDINATION - PER Boone - 03/07/2023 8:10 AM EDT 03/07/23 8:10 AM - 8:12 AM RAKING MACHINE OPERATOR called [facility] [employer] Loader with [facility] and left her a message that the pt. was scheduled for a Start of care today. RAKING MACHINE OPERATOR stated the pt. to have Nursing and PT. RAKING MACHINE OPERATOR left her name and phone number. documented in this encounterCleveland Clinic Foundation04-06-2023 Miscellaneous Notes* Telephone Encounter - Panfilo Oreilly MD - 03/06/2023 9:56 AM EDT Reviewed and agree. * Telephone Encounter - Malka Mas LPN - 03/06/2023 9:[address]Christopher Dorys Oreilly MD , Panfilo Oreilly MD was active with [facility] for sn and pt services. Her insurance has recently changed. Due to the insurance change we need to complete a discharge and readmit to our services under the new insurance. The next planned visit will be in 24-48hrs so that will be the date that we readmit her under the new insurance. Please let me know if you have any questions. Thank you, Malka Mas LPN documented in this encounterCleveland Clinic Foundation04-05-2023 Miscellaneous Notes* Telephone Encounter - Georgina Samayoa RN - 03/05/2023 4:21 PM EDT FYI: Carolee from [facility] calls to report that patient was discharged from [facility] today 03/05/2023. Patient is scheduled with Hallie for hospital follow up on 03/11/2023. Georgina Samayoa RN documented in this encounterCleveland Clinic Foundation04-05-[address] Neville [facility] March 05, 2023 11:07am Note Date/Time March 05, 2023 11:0 7am [facility] Medical Records Department [address] [place] [id number] Instructions for Home/Discharge Instructions 03/05/23 1105 MR#: [id number] Acct: [id number] Name: MACARIO WALLACE Rep #:[id number] : 1975 47 From: Ling Neville MD PCP: Dr. Tino Oreilly MD Status :ADM IN Discharge Instructions Diet Discharge Diet: Low fat / Low cholesterol Activity Discharge Activity: Return to Normal Activity Weight Bearing Status: Weight bearing as tolerated Dressing / Incision Call your doctor if you observe: Fever of 101 or Higher, Shortness of breath, Dizziness, Swelling in the ankles, Chest pain, Increased palpitations (irregularheartbeat) and Calf discomfort Follow Up Care Test Results: Test results from this visit will be discussed in further detail at your follow- up appointment, if applicable. Discharge Plan Admission Admit Date/Time: 03/02/23 16:21 Primary Reason for Your Visit: hypoxia Attending Provider: Ling Neville Primary Care Provider: Tino Oreilly Consulting Providers: Berlin Dumont ; Ace Sanders ; Fadi Box ; Jarrett Villalobos ; Nelly Hunter NP ; Faraz Lange Instructions Patient Instructions: ED Dyspnea Discharge Orders/Prescriptions Prescriptions: New prednisone 20 mg Tablet 40 mg PO BREAKFAST 5 Days Qty: 10 0RF Continued loratadine 10 mg tablet 10 mg PO DAILY PRN (Reason: Allergies) lisinopril 10 mg tablet 10 mg PO DAILY Label Comments: TAKE 1 TABLET BY MOUTH EVERY DAY metformin 500 mg tablet extended release 24 hr 2,000 mg PO DAILY metoprolol succinate 25 mg tablet extended release 24 hr 25 mg PO DAILY Label Comments: TAKE 1 TABLET BY MOUTH EVERY DAY atorvastatin 80 mg tablet 80 mg PO QHS qjdtyhqz-uewl-HK-calcium-mins 1 EACH tablet 1 ea PO DAILY Label Comments: vitamin omeprazole 40 MG capsule,delayed release(DR/EC) 40 mg PO DAILY diltiazem HCl 120 MG capsule 120 mg PO DAILY apixaban 5 MG tablet 5 mg PO BID furosemide 40 mg tablet 40 mg PO BID Label Comments: Take 1 tablet by mouth twice daily. insulin lispro [Humalog KwikPen Insulin] 100 unit/mL Insulin Pen 50 unit subcut TIDAC Qty: 0 0RF ammonium lactate 12 % Lotion 1 applic topical TID 30 Days Qty: 400 0RF Protocol: *Topical Application Instructions APPLICATION INSTRUCTIONS: apply to both legs andaffected dry areas of the body albuterol sulfate 2.5 mg /3 mL (0.083 %) solution for nebulization 2.5 mg inhalation Q4H PRN (Reason: SOB) gabapentin 800 mg tablet 800 mg PO TID furosemide 20 mg tablet 20 mg PO PRN PRN (Reason: Edema) fenofibrate nanocrystallized 145 mg tablet 145 mg PO DAILY Jardiance 10 mg tablet 10 mg PO DAILY nicotine (polacrilex) 2 mg mini lozenge 2 mg PO PRN PRN (Reason: Smoking Cessation) Toujeo Max U-300 SoloStar 300 unit/mL (3 mL) insulin pen 150 unit SUBCUT DAILY potassium chloride 20 mEq tablet extended release 20 meq PO BID insulin degludec [Tresiba FlexTouch U-200] 200 unit/mL (3 mL) insulin pen 104 unit SUBCUT BID Label Comments: INJECT 100 UNITS SUBCUTANEOUSLY TWICE DAILY (this replaces levemir) Referrals / Follow Up: Tino Oreilly MD [Primary Care Provider] - Within 2 Weeks Ace Sanders DO [Med Staff - Active Staff] - Within 2 Weeks Disposition Disposition (needs filled in before D/C Order can be placed): Home, Self Care 03/05/23 1107<Electronically signed by Ling Neville MD>Ling Neville MD CC: PAINTER SET-Juan José Hunter; Dr. Berlin Dumont MD; Dr. Tino Oreilly MD; Dr. Ace Sanders DO; Dr. Faraz Lange DO; Dr. Fadi Box MD; Dr. Jarrett Villalobos MD ~ Signed [facility] Work Phone: 1(685) 988-333404-05-[address] Sanders [facility] March 05, 2023 7:27am Note Date/Time March 05, 2023 7:04 am [facility] Medical Records Department [address] [place] [address] Progress Note - Seed Corn Production Manager 03/05/23 0701 MR#: [id number] Acct: [id number] Name: MACARIO WALLACE Rep #:[id number] : 1975 47 From: Ace Sanders DO PCP: Dr. Tino Oreilly MD Status :ADM IN Location: ICU CVICU20 1-1 Assessment & Plan Assessment/Plan (1) Acute on chronic respiratory failure with hypoxia and hypercapnia: (2) Noncompliance with CPAP treatment: PLAN: Plan RECOMMENDATIONS: 1. Continue BiPAP therapy, at a minimum, with naps and nightly. 2. Continue to wean supplemental oxygen to maintain saturations 88 to 92%. 3. Continue antimicrobials to complete 7 days of therapy. 4. Continue bronchodilators and steroids. Plan for 5-day prednisone burst at discharge. 5. Continue Lasix regimen. 6. Continue Eliquis per home regimen. 7. Encourage incentive spirometer use and mobilize patient as tolerated. 8. Outpatient pulmonary follow-up within 2 weeks of discharge. We will sign off. Please call with any additional questions. IMPRESSIONS: 1. 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 Although an acute bacterial infectious process seems less likely, the patient remains on empiric antibiotics. She will be continued on diuretics as tolerated by hemodynamics and renal function. At the present time,the patient is maintaining appropriate oxygen saturations on her baseline requirement. She will be continued on bronchodilator therapy. However, prior PFTs only demonstrated a restrictive ventilatory impairment secondary to her body habitus. Overall, the patient has poor outpatient medical compliance with prescribed therapy. 2. History of restrictive lung disease secondary to obesity/history of pulmonary embolism/obstructive sleep apnea/tobacco dependency Complicates care, management, recovery and prognosis. Continue systemic anticoagulation per home regimen. Weight loss is imperative. Recommend outpatient pulmonary follow-up within 2 weeks of discharge. This note was generated with [employer] dictation software. It may contain incorrectwords, spelling, and punctuation that were not noted in checking the note beforesigning. Subjective Subjective The patient was seen and examined at the bedside this morning. Events from the last 24 hours have been reviewed. The patient is currently afebrile, hemodynamically stable and maintaining appropriate oxygen saturations on 4 L/minvia nasal cannula, which is her baseline requirement. She is overall net -6.5 Lfor the hospitalization. Potassium is low at 3.4. Creatinine is within normal limits. Objective Data Objective Data The patient's most recent lab work, culture data and imaging studies have all been personally reviewed. Infectious work-up has been unrevealing to date. Vital Signs: Vital Signs Temp Pulse Resp BP Pulse Ox O2 Del Method O2 Flow Rate 98 F 60 18 140/94 H 96 Nasal Cannula 4 03/05/23 06:00 03/05/23 06:00 03/05/23 06:00 03/05/23 06:00 03/05/23 06:00 03/05/23 06:00 03/05/23 06:00 FiO2 40 03/05/23 00:55 Oxygen Flow Rate (L/min) 4 Oxygen Delivery Method Nasal Cannula Weight: 372 lb 2.244 oz Body Mass Index (BMI) 61.9 Intake & Output: Intake and Output for Last 24 Hours 03/03/23 03/04/23 03/05/23 23:59 23:59 23:59 Intake Total 2680.75 / 2680.75 920 / 920 50 / 50 Output Total 8350 / 8350 1999 Balance -5669.25 / -5669.25 -1080 / -1080 50 / 50 Lab / Micro Data Attestation: I reviewed the patient's lab results. Result Diagrams: 03/05/23 03:30 03/05/23 03:30 Labs: Laboratory Results - last 24 hr 03/04/23 11:22: POC Glucose 355 H 03/04/23 16:22: POC Glucose 441 H 03/04/23 22:17: POC Glucose 393 H 03/05/23 03:30: WBC 11.1 H, RBC 3.66 L, Hgb 9.4 L, Hct 32.3 L, MCV 88.3, MCH 25.7 L, MCHC 29.1 L, RDW Std Deviation 53.4 H, RDW Coeff of Darrion 16.5 H, Plt Count 266, MPV 9.8, Immature Gran % (Auto) 0.500, Neut % (Auto) 74.4 H, Lymph % (Auto) 19.1, Defiance % (Auto) 5.6, Eos % (Auto) 0.1, Baso % (Auto) 0.3, Absolute Neuts (auto) 8.3 H, Absolute Lymphs (auto) 2.12, Nucleated RBC % 0.4 03/05/23 03:30: Sodium 133 L, Potassium 3.4 L, Chloride 90 L, Carbon Dioxide 39.0 H, Anion Gap 4 L, BUN 29 H, Creatinine 0.92, Estim Creat Clear Calc 69.49, Est GFR (MDRD) Af Amer 85, Est GFR (MDRD) Non-Af 70, BUN/Creatinine Ratio 31.5 H, Glucose 330 H, Calcium 9.0 03/05/23 06:03: POC Glucose 259 H Micro: Microbiology 03/02/23 15:50 Blood Culture (Wb) - Arm Left Blood Culture - Preliminary No growth in 48 hours. 03/02/23 15:30 Blood Culture (Wb) - Anticubital Right Blood Culture - Preliminary No growth in 48 hours. 03/02/23 18:10 Urine Catheter - Catheter Urine Culture - Preliminary Culture exhibits no growth. 03/02/23 17:20 Wound - Leg, Right Gram Stain - Final 03/02/23 17:20 Wound - Leg, Right Wound Culture - Preliminary Proteus mirabilis Mixed Gram Pos & Gram Neg Org 03/02/23 19:05 Mucosa - Nasopharyngeal Respiratory Panel (PCR) - Final 03/02/23 18:10 Urine Catheter - Catheter Legionella Antigen - Final 03/02/23 18:10 Urine Catheter - Catheter Streptococcus pneumoniae Antigen (M- Final ABG Data ABG results: ABG 03/02/23 03/02/23 03/02/23 14:42 17:22 20:31 Specimen Type DAMION ART ART Sample Site R Radial L Radial pH 7.28 L 7.33 L Bicarbonate Actual 34.0 H 33.8 H Total CO2 36 36 Base Excess 7 H 8 H O2 Saturation 86 L 89 L O2 % 50 50 ABG pCO2 72.7 H* 64.4 H ABG pO2 60 L 64 L Anil Test Positive Positive VBG pH 7.29 L VBG pO2 60 H VBG HCO3 32 H VBG Total CO2 34 H VBG O2 Sat (Calc) 87 H VBG Base Excess 6 H POC Mix VBG pCO2 Pt Tmp 67.1 H Respiration Rate 10 22 O2 Delivery Device BiPAP BiPAP Vent Mode BiLevel POC PEEP 8 Crit Call To/Read Back Yes Blood Gas Notified Whom jopperi Radiography Diagnostic Testing: Radiology Impression Chest X-Ray 03/02/23 14:08 IMPRESSION: Pulmonary findings appear worse. Electronically Signed: George Leiva MD at 15:24 EDT , Chest X-Ray 03/03/23 04:09 IMPRESSION: Resolving bilateral pneumonia. Electronically Signed: Patti Jensen MD at 5:42 EDT , Physical Exam Const alert and no apparent distress Constitutional Narrative: Sitting in bedside recliner. General Appearance: cooperative Nutritional Appearance: morbidly obese HEENT normocephalic and head/scalp atraumatic Eyes PERRL, EOMs intact bilaterally and conjunctivae normal Neck supple Neck Narrative: Large neck circumference with redundant soft tissue. General: trachea midline Chest inspection of chest normal Resp Auscultation: diminished lung sounds; Negative for rales, rhonchi or wheezes Cardio regular rate and regular rhythm GI normal to inspection, nondistended, normoactive bowel sounds Extremity General Extremity: Negative for clubbing Skin General Skin Exam: venous stasis and dermatitis Neuro CN's II-XII intact bilaterally, moves all extremities and no focal motor deficits Psych cooperative and affect normal Charges/Coding Visit Charges Inpatient E&M: 69081 Subs Hosp L2 04/05/23 0727 <Electronically signed by Ace Sanders DO> Cosigner Signature (if applicable): CC: ~ Signed [facility] Work Phone: 1(858) 774-982904-04-[address] Neville [facility] March 04, 2023 5:32pm Note Date/Time March 04, 2023 2:15 pm [facility] Medical Records Department [address] [place] [address] Progress Note 03/04/23 1410 MR#: [id number] Acct: [id number] Name: MACARIO WALLACE Rep #:[id number] : 1975 47 From: Ling Neville MD PCP: Dr. Tino Oreilly MD Status :ADM IN Location: ICU CVICU20 1-1 Subjective Subjective Patient seen and examined. She had no active complaints and had an uneventful night. She is feeling better today. Review of systems is otherwise negative. Shehas remained hemodynamically stable. She is on 4L of oxygen by nasal canula. Objective Data Objective Data Vital Signs: Vital Signs Temp Pulse Resp BP Pulse Ox O2 Del Method O2 Flow Rate 97.6 F L 90 22 H 146/82 H 94 Nasal Cannula 4 03/04/23 10:00 03/04/23 11:43 03/04/23 11:43 03/04/23 10:00 03/04/23 10:00 03/04/23 10:00 03/04/23 10:00 FiO2 40 03/04/23 08:47 Oxygen Flow Rate (L/min) 4 Oxygen Delivery Method Nasal Cannula Weight: 374 lb 12.573 oz Body Mass Index (BMI) 62.4 Intake & Output: Intake and Output for Last 24 Hours 03/02/23 03/03/23 03/04/23 23:59 23:59 23:59 Intake Total 305 / 405 2680.75 / 2680.75 630 / 630 Output Total 200 / 2600 8350 / 8350 1000 / 1000 Balance 105 / -2195 -5669.25 / -5669.25 -370 / -370 Lab / Micro Data Result Diagrams: 03/04/23 03:34 03/04/23 03:34 Labs: Laboratory Results - last 24 hr 03/03/23 18:45: POC Glucose 419 H 03/03/23 19:15: Vancomycin Trough 17.8 H 03/03/23 21:26: POC Glucose 452 H* 03/04/23 01:52: POC Glucose 414 H 03/04/23 03:34: WBC 10.1, RBC 3.74 L, Hgb 9.7 L, Hct 33.3 L, MCV 89.0, MCH 25.9 L, MCHC 29.1 L, RDW Std Deviation 54.3 H, RDW Coeff of Darrion 16.9 H, Plt Count 291, MPV 10.1, Immature Gran % (Auto) 1.000 H, Neut % (Auto) 86.2 H, Lymph % (Auto) 9.1 L, Defiance % (Auto) 3.4, Eos % (Auto) 0.0, Baso % (Auto) 0.3, Absolute Neuts (auto) 8.7 H, Absolute Lymphs (auto) 0.92, Nucleated RBC % 0.6 03/04/23 03:34: Sodium 134 L, Potassium 4.0, Chloride 93 L, Carbon Dioxide 37.0 H, Anion Gap 4 L, BUN 24 H, Creatinine 1.00, Estim Creat Clear Calc 63.93, Est GFR (MDRD) Af Amer 77, Est GFR (MDRD) Non-Af 64, BUN/Creatinine Ratio 24.0 H, Glucose 409 H, Calcium 9.5 03/04/23 11:22: POC Glucose 355 H Micro: Microbiology 03/02/23 15:50 Blood Culture (Wb) - Arm Left Blood Culture - Preliminary No growth in 48 hours. 03/02/23 15:30 Blood Culture (Wb) - Anticubital Right Blood Culture - Preliminary No growth in 48 hours. 03/02/23 18:10 Urine Catheter - Catheter Urine Culture - Preliminary Culture exhibits no growth. 03/02/23 17:20 Wound - Leg, Right Gram Stain - Final 03/02/23 17:20 Wound - Leg, Right Wound Culture - Preliminary Proteus mirabilis Mixed Gram Pos & Gram Neg Org 03/02/23 19:05 Mucosa - Nasopharyngeal Respiratory Panel (PCR) - Final 03/02/23 18:10 Urine Catheter - Catheter Legionella Antigen - Final 03/02/23 18:10 Urine Catheter - Catheter Streptococcus pneumoniae Antigen (M- Final Physical Exam Const alert, oriented x3, no apparent distress and well nourished Constitutional Narrative: Super morbid obesity General Appearance: cooperative HEENT normocephalic, head/scalp atraumatic, moist oral mucous membranes and oropharynxnormal Mouth: dry mucous membranes Eyes PERRL and EOMs intact bilaterally Neck supple and no JVD Lymph Lymphatic: no lymphadenopathy noted and no lymphedema noted Resp Resp Narrative: diminished breath sounds bibasally, no wheezes or crackles. on 4L of oxygen by nasal canula, Cardio regular rate, regular rhythm, S1 normal heart sound, S2 normal heart sound and no murmurs Cardio Narrative: Regular. GI normal to inspection, nondistended, normoactive bowel sounds, soft to palpation,non-tender and non-distended Extremity normal capillary refill, no clubbing, cyanosis or edema and no calf tenderness Skin General Skin Exam: no breakdown Neuro CN's II-XII intact bilaterally, moves all extremities and no focal motor deficits Psych thought process normal and affect normal Appearance: appropriate Assessment & Plan Assessment/Plan (1) Acute on chronic respiratory failure with hypoxia and hypercapnia: PLAN: Plan #Acute on chronic hypoxic and hypercapnic respiratory failure * Thought to be multifactorial, due to pneumonia and obesity hypoventilation syndrome as well as probable CHF * On IV furosemide as well as IV Solu-Medrol. Started on IV ceftriaxone and azithromycin but this was switched to IV Vanco and Zosyn. * Breathing treatments with bronchodilators. Titrate oxygen to maintain saturation above 90%. * Critical care on board. * #Perianal abscess: * Had been treated for necrotizing fasciitis of the left groin in [facility] in December 2023 and had debridement done. She went back in January with pain in the right groin and had incision and drainage on the right side. Wound care on board. #Type 2 diabetes mellitus with hyperglycemia: Jardiance and metformin on hold. Insulin sliding scale. Accu-Cheks ACHS. #Lactic acidosis: Thought to be due to hypoxia. Stable #Heart failure preserved ejection fraction: Currently being diuresed with Lasix. #History of adrenal incidentaloma: Follow-up with PPI for further work-up as needed #LOGAN: On CPAP nightly. #GERD: On PPI #Hypertension: On lisinopril Nicotine dependence: Usually smokes and or vapes. Counseled about quitting. Nicotine patch as needed. #Super morbid obesity: BMI 63.1. Complicates acute care, expected recovery and prognosis. History of DVT: On Eliquis DVT prophylaxis: On Eliquis already for DVT treatment Disposition: anticipate dc over the next 24-48 hours Charges/Coding Visit Charges Inpatient E&M: 86305 Subs Hosp L2 03/04/23 1732 <Electronically signed by Ling Neville MD> Ling Neville MD Cosigner Signature (if applicable): CC: ~ Signed [facility] Work Phone: 1(678) 400-389004-04-2023 Miscellaneous Notes* HH CARE COORDINATION - Karyn BurnPER valenzuela - 03/04/2023 3:45 PM EDT 03/04/23 3:54 PM - 3:58 PM RAKING MACHINE OPERATOR received a phone call from Brandy Ross [facility] Care[facility] with [facility] and she informed RAKING MACHINE OPERATOR that the pt. wasadmitted to [facility] yesterday 03/03/23. She stated that someone went to see the pt. and she was not there. Brandy stated that they spoke to the pt.'s family and they informed them thept. was admitted to the hospital yesterday. RAKING MACHINE OPERATOR asked Brandy if she was aware the pt.'s insurance changed to [place] [employer] and she stated that the pt. changed her Medicare plan and that she was still [place] [facility] [place]. Brandy stated that the pt. was still on Waiver. 03/04/23 3:54 PM - 3:57 PM RAKING MACHINE OPERATOR called [facility] and spoke to the Station Repairer regarding if the pt. was admitted there and she informed RAKING MACHINE OPERATOR that the was was currently admitted there. 03/04/23 4;03 PM RAKING MACHINE OPERATOR Emailed [facility] Field Support Scheduling, Bharat Gardner RN Case Manager and [facility] Macario Wallace has been admitted to [facility] 03/03/23 per Waiver [employer] Loader. I did call [facility] and they stated she was admittedthere. She is a SOC for tomorrow. Thanks, documented in this encounterC[facility] Clinic Foundation04-04-2023 Miscellaneous Notes* HH CARE COORDINATION - PER [place] - 03/04/2023 2:45 PM EDT 03/04/23 2:54 PM - 2:56 PM RAKING MACHINE OPERATOR called Brandy Ross [facility] Load[facility] with [facility] and left her a message regarding if the pt. was still on Waiver and regarding the pt.'s insurance changing to [place]. RAKING MACHINE OPERATOR left her name and phone number for Brandy to call RAKING MACHINE OPERATOR back. documented in this encounterCleveland Clinic Foundation04-04-[address] Sanders [facility] March 04, 2023 9:16am Note Date/Time March 04, 2023 7:09 am [facility] Medical Records Department [address] [place] [address] Progress Note - Seed Corn Production Manager 03/04/23 0707 MR#: [id number] Acct: [id number] Name: MACARIO WALLACE Rep #:[id number] : 1975 47 From: Ace Sanders DO PCP: Dr. Tino Oreilly MD Status :ADM IN Location: ICU CVICU 1-1 Assessment & Plan Assessment/Plan (1) Acute on chronic respiratory failure with hypoxia and hypercapnia: (2) Noncompliance with CPAP treatment: PLAN: Plan RECOMMENDATIONS: 1. Continue BiPAP therapy, at a minimum, with naps and nightly. 2. Continue to wean supplemental oxygen to maintain saturations 88 to 92%. 3. Continue empiric antimicrobials to complete 7 days of therapy. 4. Continue bronchodilators and steroids. Okay to transition to prednisone to complete 5-day burst. 5. Transition from IV Lasix to p.o. route, per home regimen. 6. Continue Eliquis per home regimen. 7. Encourage incentive spirometer use and mobilize patient as tolerated. 8. The patient is medically stable for transfer out of the intensive care unit. 9. Outpatient pulmonary follow-up within 2 weeks of discharge. IMPRESSIONS: 1. 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 Although an acute bacterial infectious process seems less likely,the patient remains on empiric antibiotics. She will be continued on diuretics as tolerated by hemodynamics and renal function. At the present time, the patient is maintaining appropriate oxygen saturations on her baseline requirement. She will be continued on bronchodilator therapy. However, prior PFTs only demonstrated a restrictive ventilatory impairment secondary to her body habitus. Overall, the patient has poor outpatient medical compliance with prescribed therapy. 2. History of restrictive lung disease secondary to obesity/history of pulmonary embolism/obstructive sleep apnea/tobacco dependency Complicates care, management, recovery and prognosis. Continue systemic anticoagulation per home regimen. Weight loss is imperative. Recommend outpatient pulmonary follow-up within 2 weeks of discharge. This note was generated with [employer] dictation software. It may contain incorrectwords, spelling, and punctuation that were not noted in checking the note beforesigning. Subjective Subjective The patient was seen and examined at the bedside this morning. Events from the last 24 hours have been reviewed. The patient is currently afebrile, hemodynamically stable and maintaining appropriate oxygen saturations on 4 L/minvia nasal cannula. The patient was reportedly compliant with BiPAP therapy overnight. She is documented to be overall net -6 L for the hospitalization. Objective Data Objective Data The patient's most recent lab work, culture data and imaging studies have all been personally reviewed. Infectious work-up has been unrevealing to date. Vital Signs: Vital Signs Temp Pulse Resp BP Pulse Ox O2 Del Method O2 Flow Rate 98.3 F 64 19 H 163/70 H 96 Nasal Cannula 4 03/04/23 07:00 03/04/23 07:00 03/04/23 07:00 03/04/23 07:00 03/04/23 07:00 03/04/23 07:00 03/04/23 07:00 FiO2 40 03/04/23 04:00 Oxygen Flow Rate (L/min) 4 Oxygen Delivery Method Nasal Cannula Weight: 374 lb 12.573 oz Body Mass Index (BMI) 62.4 Intake & Output: Intake and Output for Last 24 Hours 03/02/23 03/03/23 03/04/23 23:59 23:59 23:59 Intake Total 305 / 405 2680.75 / 2680.75 580 / 580 Output Total 200 / 2600 8350 / 8350 1000 / 1000 Balance 105 / -2195 -5669.25 / -5669.25 -420 / -420 Lab / Micro Data Attestation: I reviewed the patient's lab results. Result Diagrams: 03/04/23 03:34 03/04/23 03:34 Labs: Laboratory Results - last 24 hr 03/03/23 12:55: POC Glucose 365 H 03/03/23 18:45: POC Glucose 419 H 03/03/23 19:15: Vancomycin Trough 17.8 H 03/03/23 21:26: POC Glucose 452 H* 03/04/23 01:52: POC Glucose 414 H 03/04/23 03:34: WBC 10.1, RBC 3.74 L, Hgb 9.7 L, Hct 33.3 L, MCV 89.0, MCH 25.9 L, MCHC 29.1 L, RDW Std Deviation 54.3 H, RDW Coeff of Darrion 16.9 H, Plt Count 291, MPV 10.1, Immature Gran % (Auto) 1.000 H, Neut % (Auto) 86.2 H, Lymph % (Auto) 9.1 L, Defiance % (Auto) 3.4, Eos % (Auto) 0.0, Baso % (Auto) 0.3, Absolute Neuts (auto) 8.7 H, Absolute Lymphs (auto) 0.92, Nucleated RBC % 0.6 03/04/23 03:34: Sodium 134 L, Potassium 4.0, Chloride 93 L, Carbon Dioxide 37.0 H, Anion Gap 4 L, BUN 24 H, Creatinine 1.00, Estim Creat Clear Calc 63.93, Est GFR (MDRD) Af Amer 77, Est GFR (MDRD) Non-Af 64, BUN/Creatinine Ratio 24.0 H, Glucose 409 H, Calcium 9.5 Micro: Microbiology 03/02/23 17:20 Wound - Leg, Right Gram Stain - Final 03/02/23 17:20 Wound - Leg, Right Wound Culture - Preliminary GNR non zinc plate cutter 03/02/23 18:10 Urine Catheter - Catheter Urine Culture - Preliminary Culture exhibits no growth. 03/02/23 19:05 Mucosa - Nasopharyngeal Respiratory Panel (PCR) - Final 03/02/23 18:10 Urine Catheter - Catheter Legionella Antigen - Final 03/02/23 18:10 Urine Catheter - Catheter Streptococcus pneumoniae Antigen (M- Final ABG Data ABG results: ABG 03/02/23 03/02/23 03/02/23 14:42 17:22 20:31 Specimen Type DAMION ART ART Sample Site R Radial L Radial pH 7.28 L 7.33 L Bicarbonate Actual 34.0 H 33.8 H Total CO2 36 36 Base Excess 7 H 8 H O2 Saturation 86 L 89 L O2 % 50 50 ABG pCO2 72.7 H* 64.4 H ABG pO2 60 L 64 L Anil Test Positive Positive VBG pH 7.29 L VBG pO2 60 H VBG HCO3 32 H VBG Total CO2 34 H VBG O2 Sat (Calc) 87 H VBG Base Excess 6 H POC Mix VBG pCO2 Pt Tmp 67.1 H Respiration Rate 10 22 O2 Delivery Device BiPAP BiPAP Vent Mode BiLevel POC PEEP 8 Crit Call To/Read Back Yes Blood Gas Notified Whom jopperi Radiography Diagnostic Testing: Radiology Impression Chest X-Ray 03/02/23 14:08 IMPRESSION: Pulmonary findings appear worse. Electronically Signed: George Leiva MD at 15:24 EDT , Chest X-Ray 03/03/23 04:09 IMPRESSION: Resolving bilateral pneumonia. Electronically Signed: Patti Jensen MD at 5:42 EDT , Physical Exam Const alert and no apparent distress Constitutional Narrative: Sitting in bedside recliner. General Appearance: cooperative Nutritional Appearance: morbidly obese HEENT normocephalic and head/scalp atraumatic Eyes PERRL, EOMs intact bilaterally and conjunctivae normal Neck supple Neck Narrative: Large neck circumference with redundant soft tissue. General: trachea midline Chest inspection of chest normal Resp Auscultation: diminished lung sounds; Negative for rales, rhonchi or wheezes Cardio regular rate and regular rhythm GI normal to inspection, nondistended, normoactive bowel sounds Extremity General Extremity: Negative for clubbing Skin General Skin Exam: venous stasis and dermatitis Neuro CN's II-XII intact bilaterally, moves all extremities and no focal motor deficits Psych cooperative and affect normal Charges/Coding Visit Charges Inpatient E&M: 65570 Subs Hosp L2 03/04/23 0916 <Electronically signed by Ace Sanders DO> Cosigner Signature (if applicable): CC: ~ Signed [facility] Work Phone: 1(130) 984-906104-04-2023 Consult note Author Faraz Lerner [facility] March 04, 2023 12:10am Note Date/Time March 04, 2023 12:1 0am [facility] Medical Records Department [address] [place] [address] Pharmacokinetic/Renal -Consult 03/04/23 0008 MR#: [id number] Acct: [id number] Name: MACARIO WALLACE Rep #:[id number] : 1975 47 From: Faraz Lerner PCP: Dr. Tino Oreilly MD Status :ADM IN Y Location: ICU CVICU20 1-1 Consult Pharmacy has been consulted to manage selected antiobiotic: Vancomycin Type of Consult: Follow-up Prior Doses of Antibiotics Received/Current Regimen: Medications Vancomycin HCl 1,500 mg/ (Sodium Chloride) 530 mls @ 250 mls/hr IV Q8H KIAN Last Admin: 03/03/23 22:22 Dose: Infused Labs: Sodium 136 mmol/L (136-145) 03/03/23 03:15 Potassium 4.2 mmol/L (3.5-5.1) 03/03/23 03:15 Chloride 98 mmol/L (98-107) 03/03/23 03:15 Carbon Dioxide 35.0 mmol/L (21.0-32.0) H 03/03/23 03:15 Anion Gap 3 (5-15) L 03/03/23 03:15 BUN 13 mg/dL (7-18) 03/03/23 03:15 Creatinine 0.76 mg/dL (0.55-1.02) 03/03/23 03:15 Est GFR (MDRD) Af Amer 106 mL/min (>60) 03/03/23 03:15 Est GFR (MDRD) Non-Af 88 mL/min (>60) 03/03/23 03:15 BUN/Creatinine Ratio 17.2 RATIO (10-20) 03/03/23 03:15 Glucose 311 mg/dL (74-106) H 03/03/23 03:15 Vancomycin Trough 17.8 ug/mL (5.0-15.0) H 03/03/23 19:15 Microbiology: Microbiology 03/02/23 17:20 Wound - Leg, Right Gram Stain - Final 03/02/23 17:20 Wound - Leg, Right Wound Culture - Preliminary GNR non zinc plate cutter 03/02/23 18:10 Urine Catheter - Catheter Urine Culture - Preliminary Culture exhibits no growth. 03/02/23 19:05 Mucosa - Nasopharyngeal Respiratory Panel (PCR) - Final 03/02/23 18:10 Urine Catheter - Catheter Legionella Antigen - Final 03/02/23 18:10 Urine Catheter - Catheter Streptococcus pneumoniae Antigen (M- Final Weight used for dosin kg Estimated Creatinine Clearance: 152 Goal Trough: 15-20 mcg/mL Pharmacy Plan for Drug Dosing: Vancomycin trough level of 17.8 was within the target range of 15-20. Will continue dosing at 1500mg q8h, and re-draw a trough level in two days. Pharmacy Service will continue to monitor and adjust dosing as required. Follow-Up Labs: Trough Vancomycin Labs to be done on [date and time ordered]: 03/05/23 @1830 03/04/23 0010 <Electronically signed by Faraz garcia > Date _ Faraz Perez Signature (if applicable): Date CC: ~ Signed [facility] Work Phone: 1(302) 669-711504-03-[address] Neville [facility] March 03, 2023 5:48pm Note Date/Time March 03, 2023 5:39 pm [facility] Medical Records Department [address] [place] [address] Progress Note 03/03/23 1734 MR#: [id number] Acct: [id number] Name: MACARIO WALLACE Rep #:[id number] : 1975 47 From: Ling Neville MD PCP: Dr. Tino Oreilly MD Status :ADM IN Location: ICU CVICU20 1-1 Subjective Subjective Patient seen and examined. She said she felt much better. She denied any shortness of breath, cough, chest pain, palpitations, nausea, vomiting or any other symptoms. Review of systems is otherwise negative. She was on oxygen 4 L at time of review. Objective Data Objective Data Vital Signs: Vital Signs Temp Pulse Resp BP Pulse Ox O2 Del Method O2 Flow Rate 98.2 F 67 21 H 138/89 H 96 Bi-pap 7 03/03/23 17:00 03/03/23 17:00 03/03/23 17:00 03/03/23 17:00 03/03/23 17:00 03/03/23 17:00 03/03/23 16:51 FiO2 40 03/03/23 17:00 Oxygen Flow Rate (L/min) 7 Oxygen Delivery Method Bi-pap Weight: 379 lb 3.121 oz Body Mass Index (BMI) 39.4 Intake & Output: Intake and Output for Last 24 Hours 03/01/23 03/02/23 03/03/23 23:59 23:59 23:59 Intake Total 305 / 405 1850 / 1850 Output Total 200 / 2600 4250 / 4250 Balance 105 / -2195 -2400 / -2400 Lab / Micro Data Result Diagrams: 03/03/23 03:15 03/03/23 03:15 Labs: Laboratory Results - last 24 hr 03/02/23 18:00: Troponin I High Sens 29 03/02/23 18:10: Urine Color Yellow, Urine Clarity Clear, Urine pH 6.0, Ur Specific Renick 1.015, Urine Protein 30 H, Urine Glucose (UA) 1000 H, Urine Ketones Negative, Urine Occult Blood 10 H, Urine Nitrite Negative, Urine Bilirubin Negative, Urine Urobilinogen Normal, Ur Leukocyte Esterase Negative, Urine RBC 0 SEEN, Urine WBC 0 SEEN, Ur Squamous Epith Cells 0 SEEN, Urine Bacteria 0 SEEN, Urine Mucus 0 SEEN 03/02/23 18:11: POC Glucose 293 H 03/02/23 18:50: Lactic Acid 0.9 03/02/23 19:05: COVID-19 (SURESH) Negative 03/02/23 20:45: Troponin I High Sens 27 03/03/23 00:50: Troponin I High Sens 22 03/03/23 00:58: POC Glucose 301 H 03/03/23 03:15: WBC 11.4 H, RBC 3.75 L, Hgb 9.7 L, Hct 34.0 L, MCV 90.7, MCH 25.9 L, MCHC 28.5 L, RDW Std Deviation 54.9 H, RDW Coeff of Darrion 16.7 H, Plt Count 277, MPV 9.8, Immature Gran % (Auto) 1.800 H, Neut % (Auto) 85.4 H, Lymph % (Auto) 10.2 L, Defiance % (Auto) 1.9, Eos % (Auto) 0.1, Baso % (Auto) 0.6, Absolute Neuts (auto) 9.7 H, Absolute Lymphs (auto) 1.16, Nucleated RBC % 1.1 03/03/23 03:15: Sodium 136, Potassium 4.2, Chloride 98, Carbon Dioxide 35.0 H, Anion Gap 3 L, BUN 13, Creatinine 0.76, Estim Creat Clear Calc 84.11, Est GFR (MDRD) Af Amer 106, Est GFR (MDRD) Non-Af 88, BUN/Creatinine Ratio 17.2, [id number] H, Calcium 8.8, Total Bilirubin 0.30, AST 15, ALT 20, Alkaline Phosphatase 60, Total Protein 7.2, Albumin 2.6 L, Globulin 4.6 H, Albumin/Globulin Ratio 0.6L 03/03/23 05:43: POC Glucose 243 H 03/03/23 12:55: POC Glucose 365 H Micro: Microbiology 03/02/23 17:20 Wound - Leg, Right Gram Stain - Final 03/02/23 17:20 Wound - Leg, Right Wound Culture - Preliminary GNR non zinc plate cutter 03/02/23 18:10 Urine Catheter - Catheter Urine Culture - Preliminary Culture exhibits no growth. 03/02/23 19:05 Mucosa - Nasopharyngeal Respiratory Panel (PCR) - Final 03/02/23 18:10 Urine Catheter - Catheter Legionella Antigen - Final 03/02/23 18:10 Urine Catheter - Catheter Streptococcus pneumoniae Antigen (M- Final ABG Data ABG results: ABG 03/02/23 20:31 Specimen Type ART Sample Site L Radial pH 7.33 L Bicarbonate Actual 33.8 H Total CO2 36 Base Excess 8 H O2 Saturation 89 L O2 % 50 ABG pCO2 64.4 H ABG pO2 64 L Anil Test Positive Respiration Rate 22 O2 Delivery Device BiPAP POC PEEP 8 Radiography Diagnostic Testing: Radiology Impression Chest X-Ray 03/03/23 04:09 IMPRESSION: Resolving bilateral pneumonia. Electronically Signed: Patti Jensen MD at 5:42 EDT Reading Location ID and State: [facility] / [place] Tel , Service support , Physical Exam Const alert, oriented x3, no apparent distress and well nourished Constitutional Narrative: Super morbid obesity HEENT normocephalic, moist oral mucous membranes and oropharynx normal Neck supple and no JVD Lymph Lymphatic: no lymphadenopathy noted and no lymphedema noted Resp Resp Narrative: diminished breath sounds bibasally, no wheezes or crackles. on 4L of oxygen by nasal canula, later transitioned to BIPAP Cardio regular rate, regular rhythm, S1 normal heart sound, S2 normal heart sound and no murmurs GI normal to inspection, nondistended, normoactive bowel sounds, soft to palpation,non-tender and non-distended Extremity normal capillary refill, no clubbing, cyanosis or edema and no calf tenderness Skin General Skin Exam: no breakdown Neuro CN's II-XII intact bilaterally and no focal motor deficits Psych thought process normal Appearance: appropriate Assessment & Plan Assessment/Plan (1) Acute on chronic respiratory failure with hypoxia and hypercapnia: PLAN: Plan #Acute on chronic hypoxic and hypercapnic respiratory failure * Thought to be multifactorial, due to pneumonia and obesity hypoventilation syndrome as well as probable CHF * On IV furosemide as well as IV Solu-Medrol. Started on IV ceftriaxone and azithromycin but this was switched to IV Vanco and Zosyn. * Breathing treatments with bronchodilators. Titrate oxygen to maintain saturation above 90%. * Critical care on board. * #Perianal abscess: Had been treated for necrotizing fasciitis of the left groin in [facility] in December 2023 and had debridement done. She went back in January with pain in the right groin and had incision and drainageon the right side. Wound care on board. #Type 2 diabetes mellitus with hyperglycemia: Jardiance and metformin on hold. Insulin sliding scale. Accu-Cheks ACHS. #Lactic acidosis: Thought to be due to hypoxia. Stable #Heart failure preserved ejection fraction: Currently being diuresed with Lasix. #History of adrenal incidentaloma: Follow-up with PPI for further work-up as needed #LOGAN: On CPAP nightly. #GERD: On PPI #Hypertension: On lisinopril Nicotine dependence: Usually smokes and or vapes. Counseled about quitting. Nicotine patch as needed. #Super morbid obesity: BMI 63.1. Complicates acute care, expected recovery and prognosis. History of DVT: On Eliquis DVT prophylaxis: On Eliquis already for DVT treatment Charges/Coding Visit Charges Inpatient E&M: 46262 Subs Hosp L2 03/03/23 1748 <Electronically signed by Ling Neville MD> Ling Neville MD Cosigner Signature (if applicable): CC: ~ Signed [facility] Work Phone: 1(556) [phone] Sanders [facility] March 03, 2023 10:38am Note Date/Time March 03, 2023 7:11 am [facility] Medical Records Department [address] [place] [address] Progress Note - Seed Corn Production Manager 03/03/23 0709 MR#: [id number] Acct: [id number] Name: MACARIO WALLACE Rep #:[id number] : 1975 47 From: Ace Sanders DO PCP: Dr. Tino Oreilly MD Status :ADM IN Location: ICU CVICU20 1-1 Assessment & Plan Assessment/Plan (1) Acute on chronic respiratory failure with hypoxia and hypercapnia: (2) Noncompliance with CPAP treatment: PLAN: Plan RECOMMENDATIONS: 1. Continue BiPAP therapy, at a minimum, with naps and nightly. 2. Continue to wean supplemental oxygen to maintain saturations 88 to 92%. 3. Continue empiric antimicrobials for now. 4. Continue bronchodilators and steroids. 5. Diuretics as tolerated by hemodynamics and renal function. 6. Continue Eliquis per home regimen. 7. Encourage incentive spirometer use and mobilize patient as tolerated. IMPRESSIONS: 1. 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 Although an acute bacterial infectious process seems less likely, the patient remains on empiric antibiotics. She will be continued on diuretics as tolerated by hemodynamics and renal function. The patient can be weaned from BiPAP therapy to nasal cannula oxygen to maintain saturations 88 to 92%. In light of her smoking history, plan to continue bronchodilator therapy. However, prior PFTs only demonstrated a restrictive ventilatory impairment secondary to her body habitus. Overall, the patient has poor outpatient medical compliance with prescribed therapy. 2. History of restrictive lung disease secondary to obesity/history of pulmonary embolism/obstructive sleep apnea/tobacco dependency Complicates care, management, recovery and prognosis. Continue systemic anticoagulation per home regimen. Weight loss is imperative. Recommend outpatient pulmonary follow-up within 2 weeks of discharge. This note was generated with [employer] dictation software. It may contain incorrectwords, spelling, and punctuation that were not noted in checking the note beforesigning. Subjective Subjective The patient was seen and examined at the bedside this morning. Events from the last 24 hours have been reviewed. The patient is currently afebrile, hemodynamically stable and maintaining appropriate oxygen saturations on BiPAP with an FiO2 requirement of 40%. The patient is currently documented to be overall net -2.5 L for the hospitalization. Creatinine remains within normal limits. The patient was previously under the care of Dr. Dumont of pulmonary medicine due to a history of restrictive lung disease secondary to obesity, chronic hypoxemic respiratory failure, obstructive sleep apnea and tobacco dependency. The patient was last seen in the pulmonary medicine clinic in January 2022, at which time she was noted to be noncompliant with nocturnal Pap therapy. Her last 6-minute walk test from March 2022 demonstrated the need for 4 L/min of pulsed dose oxygen. Objective Data Objective Data The patient's most recent lab work, culture data and imaging studies have all been personally reviewed. Infectious work-up has been unrevealing to date. Vital Signs: Vital Signs Temp Pulse Resp BP Pulse Ox O2 Del Method O2 Flow Rate 98.6 F 65 22 H 152/76 H 93 Bi-pap 3 03/03/23 07:00 03/03/23 07:00 03/03/23 07:00 03/03/23 07:00 03/03/23 07:00 03/03/23 07:00 03/02/23 15:03 FiO2 40 03/03/23 07:00 Oxygen Flow Rate (L/min) 3 Oxygen Delivery Method Bi-pap Weight: 237 lb 7.005 oz Body Mass Index (BMI) 39.4 Intake & Output: Intake and Output for Last 24 Hours 03/01/23 03/02/23 03/03/23 23:59 23:59 23:59 Intake Total 305 / 405 740 / 740 Output Total 200 / 2600 3400 / 3400 Balance 105 / -2195 -2660 / -2660 Lab / Micro Data Attestation: I reviewed the patient's lab results. Result Diagrams: 03/03/23 03:15 03/03/23 03:15 Labs: Laboratory Results - last 24 hr 03/02/23 14:20: WBC 12.6 H, RBC 3.59 L, Hgb 9.4 L, Hct 33.0 L, MCV 91.9, MCH 26.2 L, MCHC 28.5 L, RDW Std Deviation 57.3 H, RDW Coeff of Darrion 17.0 H, Plt Count 278, MPV 9.6, Immature Gran % (Auto) 1.600 H, Neut % (Auto) 77.6 H, Lymph % (Auto) 15.5 L, Defiance % (Auto) 3.8, Eos % (Auto) 0.7, Baso % (Auto) 0.8, Absolute Neuts (auto) 9.7 H, Absolute Lymphs (auto) 1.94, Nucleated RBC % 2.3 03/02/23 14:20: Sodium 136, Potassium 4.4, Chloride 102, Carbon Dioxide 30.0, Anion Gap 4 L, BUN 12, Creatinine 0.88, Estim Creat Clear Calc 72.64, Est GFR (MDRD) Af Amer 89, Est GFR (MDRD) Non-Af 73, BUN/Creatinine Ratio 13.6, Glucose 261 H, Calcium 8.9, Total Bilirubin 0.30, AST 14 L, ALT 18, Alkaline [id number], Total Protein 7.2, Albumin 2.7 L, Globulin 4.5 H, Albumin/Globulin Ratio 0.6L 03/02/23 14:20: Lactic Acid 2.6 H* 03/02/23 14:20: B-Natriuretic Peptide 68.4 03/02/23 14:24: POC Glucose 250 H 03/02/23 18:00: Troponin I High Sens 29 03/02/23 18:10: Urine Color Yellow, Urine Clarity Clear, Urine pH 6.0, Ur Specific Renick 1.015, Urine Protein 30 H, Urine Glucose (UA) 1000 H, Urine Ketones Negative, Urine Occult Blood 10 H, Urine Nitrite Negative, Urine Bilirubin Negative, Urine Urobilinogen Normal, Ur Leukocyte Esterase Negative, Urine RBC 0 SEEN, Urine WBC 0 SEEN, Ur Squamous Epith Cells 0 SEEN, Urine Bacteria 0 SEEN, Urine Mucus 0 SEEN 03/02/23 18:11: POC Glucose 293 H 03/02/23 18:50: Lactic Acid 0.9 03/02/23 19:05: COVID-19 (SURESH) Negative 03/02/23 20:45: Troponin I High Sens 27 03/03/23 00:50: Troponin I High Sens 22 03/03/23 00:58: POC Glucose 301 H 03/03/23 03:15: WBC 11.4 H, RBC 3.75 L, Hgb 9.7 L, Hct 34.0 L, MCV 90.7, MCH 25.9 L, MCHC 28.5 L, RDW Std Deviation 54.9 H, RDW Coeff of Darrion 16.7 H, Plt Count 277, MPV 9.8, Immature Gran % (Auto) 1.800 H, Neut % (Auto) 85.4 H, Lymph % (Auto) 10.2 L, Defiance % (Auto) 1.9, Eos % (Auto) 0.1, Baso % (Auto) 0.6, Absolute Neuts (auto) 9.7 H, Absolute Lymphs (auto) 1.16, Nucleated RBC % 1.1 03/03/23 03:15: Sodium 136, Potassium 4.2, Chloride 98, Carbon Dioxide 35.0 H, Anion Gap 3 L, BUN 13, Creatinine 0.76, Estim Creat Clear Calc 84.11, Est GFR (MDRD) Af Amer 106, Est GFR (MDRD) Non-Af 88, BUN/Creatinine Ratio 17.2, [id number] H, Calcium 8.8, Total Bilirubin 0.30, AST 15, ALT 20, Alkaline Phosphatase 60, Total Protein 7.2, Albumin 2.6 L, Globulin 4.6 H, Albumin/Globulin Ratio 0.6L 03/03/23 05:43: POC Glucose 243 H Micro: Microbiology 03/02/23 19:05 Mucosa - Nasopharyngeal Respiratory Panel (PCR) - Final 03/02/23 18:10 Urine Catheter - Catheter Legionella Antigen - Final 03/02/23 18:10 Urine Catheter - Catheter Streptococcus pneumoniae Antigen (M- Final ABG Data ABG results: ABG 03/02/23 03/02/23 03/02/23 14:42 17:22 20:31 Specimen Type DAMION ART ART Sample Site R Radial L Radial pH 7.28 L 7.33 L Bicarbonate Actual 34.0 H 33.8 H Total CO2 36 36 Base Excess 7 H 8 H O2 Saturation 86 L 89 L O2 % 50 50 ABG pCO2 72.7 H* 64.4 H ABG pO2 60 L 64 L Anil Test Positive Positive VBG pH 7.29 L VBG pO2 60 H VBG HCO3 32 H VBG Total CO2 34 H VBG O2 Sat (Calc) 87 H VBG Base Excess 6 H POC Mix VBG pCO2 Pt Tmp 67.1 H Respiration Rate 10 22 O2 Delivery Device BiPAP BiPAP Vent Mode BiLevel POC PEEP 8 Crit Call To/Read Back Yes Blood Gas Notified Whom jopperi Radiography Diagnostic Testing: Radiology Impression Chest X-Ray 03/02/23 14:08 IMPRESSION: Pulmonary findings appear worse. Electronically Signed: George Leiva MD at 15:24 EDT Reading Location ID and State: [facility] / [place] , Service support , Chest X-Ray 03/03/23 04:09 IMPRESSION: Resolving bilateral pneumonia. Electronically Signed: Patti Jensen MD at 5:42 EDT Reading Location ID and State: [facility] / [place] Tel , Service support , Physical Exam Const alert and no apparent distress General Appearance: cooperative and on BiPAP Nutritional Appearance: morbidly obese HEENT normocephalic and head/scalp atraumatic Eyes PERRL, EOMs intact bilaterally and conjunctivae normal Neck supple Neck Narrative: Large neck circumference with redundant soft tissue. General: trachea midline Chest inspection of chest normal Resp Auscultation: diminished lung sounds; Negative for rales, rhonchi or wheezes Cardio regular rate and regular rhythm GI normal to inspection, nondistended, normoactive bowel sounds Extremity General Extremity: Negative for clubbing Skin General Skin Exam: venous stasis and dermatitis Neuro CN's II-XII intact bilaterally, moves all extremities and no focal motor deficits Psych cooperative and affect normal Charges/Coding Visit Charges Inpatient E&M: 22933 Subs Hosp L3 03/03/23 1038 <Electronically signed by Ace Sanders DO> Cosigner Signature (if applicable): CC: ~ Signed [facility] Work Phone: 1(145) 824-498604-03-[address] Gill [facility] March 03, 2023 1:57am Note Date/Time March 03, 2023 1:57 am [facility] Medical Records Department [address] [place] [address] Progress Note 03/03/23 0153 MR#: [id number] Acct: [id number] Name: MACARIO WALLACE Rep #:[id number] : 1975 47 From: Chris Gill MD PCP: Dr. Tino Oreilly MD Status :ADM IN Location: ICU CVICU20 1- Progress Note Nurse reports 0127 on 03/03/2023 that patient has triggered positive sepsis screensince presentation at 1554 of 03/02/2023. Patient on antibiotics and lactic acidosis has resolved. Blood cultures already been done. Continues to be on BiPAP. No further changes to be made at this time. 03/03/23 0157 <Electronically signed by Chris Gill MD> Chris Gill MD Cosigner Signature (if applicable): CC: ~ Signed [facility] Work Phone: 1(911) 997-349004-02-[address] Box [facility] March 02, 2023 7:52pm Note Date/Time March 02, 2023 7:50 pm [facility] Medical Records Department [address] [place] [address] Consultation - [employer] Manager 03/02/231933 MR#: [id number] Acct: [id number] Name: MACARIO WALLACE Rep #:[id number] : 1975 47 From: Fadi Box MD PCP: Dr. Tino Oreilly MD Status :ADM IN Location: ICU CVICU20 1-1 Assessment & Plan Assessment/Plan (1) Acute on chronic respiratory failure with hypoxia and hypercapnia: PLAN: - Noninvasive ventilation at settings of IPAP 17 EPAP 8 rate 22 FiO2 30% titrate to saturation of greater than 94% to maintain PaO2 greater than 55. - Agree with diuresis, empiric antibiotics - Restrict calories to 1200 fawn/day, diabetic diet - Monitor renal function and electrolytes - Bronchodilators as needed - Dietary consultation, lifestyle management - Consider bariatric surgery - Evaluation of the right heart would be reasonable, although it would likely take a ZANDRA to do that considering her obesity and the poor likelihood of obtaining a good study with a transthoracic probe. (2) Community acquired pneumonia: PLAN: White count is elevated, patient has bilateral infiltrates with normal BNPtherefore she may in fact have pneumonia - Await respiratory viral swabs, add Tamiflu if positive for influenza and/or Paxlovid and/or remdesivir as needed and steroids if she is positive for COVID. - Up-to-date immunizations - Incentive spirometry - Out of bed to chair, mobilize to prevent and treat atelectasis, encourage cough deep breathing every 2 hours with routine bronchopulmonary hygiene - Physical therapy - Strep and Legionella urine, complete respiratory PCR to include chlamydia mycoplasma and other atypicals, treat as appropriate - Add empiric azithromycin 500 mg today and 250 daily for 4 days for empiric therapy of atypical community-acquired pneumonia (3) Congestive heart failure: PLAN: BNP is currently normal - Check troponins (4) Acute encephalopathy: PLAN: Likely combination of severe chronic sleep deprivation in a woman with LOGAN/obesity hypoventilation noncompliant with CPAP. She is now ventilating effectively with a exhale minute ventilation of 11.7 L/min acceptable leak on BiPAP, and fell sound asleep. - Await second ABG on effective BiPAP - Check ammonia level in the event of passive hepatic congestion causing metabolic abnormality - Follow blood sugars - Check TSH (5) 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: PLAN: As above -Nightly compliance of at least 4 hours per night - 4 hours per night, preferably all night every night and whenever the patientnaps. -Further discussions regarding barriers to care when she is awake and conversant (6) Noncompliance with CPAP treatment: PLAN: As above (7) BMI 60.0-69.9, adult: PLAN: As above (8) Venous stasis dermatitis of both lower extremities: PLAN: Management per primary. - Consider evaluation for DVT/PE, although the chest x-ray is much more consistent with CHF and/or viral pneumonia or atypical pneumonia PLAN: Plan Thank you for consulting [facility]. Ace Sanders will follow up with her tomorrow for our team. HPI Consult Data Date of Consult: 03/02/23 HPI Narrative Reason for Consultation: Ac/Chr resp failure with hypox/hypercarbia and BMI 63 HPI Narrative: MACARIO WALLACE, is a 47 F who presentsWith acute on chronic respiratory failure with hypoxia and hypercarbia. Her initial blood gas was consistent with a triple acid-base disorder which included severe respiratory acidosis, metabolic acidosis acute metabolic alkalosis. She has severe obstructive sleep apnea/obesity hypoventilation syndrome on home BiPAP with which she is noncompliant. Her history is per the chart, she was sleeping in poorly arousable when I first encountered her but earlier was awake and alert, she is tolerating BiPAP well with a minute ventilation of 11.7 settings of IPAP 17 EPAP of 8 rate 17 which I increased to 22 FiO2 of 50% with saturation 95%. So from a respiratory viewpoint she is stable on the ventilator and just sleeping soundly. Her secondABG will be done shortly. Her chest x-ray shows bilateral pulmonary infiltrates and small effusions, notably her chest CT scan in 2019 showed diffuse bilateral groundglass infiltrates, raising the possibility that these changes are chronic hypoventilatory changes. [facility] Medical History (Updated 03/02/23 @ 19:[address] Fadi Box MD) Abscess Abscess of vulva Acute on chronic respiratory failure with hypoxia and hypercapnia KERRY (acute kidney injury) Anxiety BiPAP (biphasic positive airway pressure) dependence BMI 60.0-69.9, adult Chronic diastolic (congestive) heart failure Chronic respiratory failure with hypoxia Contusion of knee, right COPD (chronic obstructive pulmonary disease) Depression Diabetes Dyspnea on exertion Essential hypertension GERD (gastroesophageal reflux disease) Hidradenitis History of left heart catheterization (LHC) (~01/05/19) History of MRSA infection Hyperglycemia due to type 2 diabetes mellitus Hyperlipidemia Hypertension Morbid obesity Necrotizing soft tissue infection Non-healing open wound of left groin Noncompliance with CPAP treatment NSTEMI (non-ST elevated myocardial infarction) 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 Old myocardial infarction On home oxygen therapy Open wound of vulva with complication Opiate overdose Perianal abscess Pulmonary embolism Respiratory failure with hypoxia Restrictive lung disease secondary to obesity Sleep apnea Smoker Soft tissue abscess of inguinal region Tobacco abuse Type 2 diabetes mellitus Venous stasis dermatitis of both lower extremities Home Medications multivit-iron 18 mg-folic acid 400 mcg-calcium 500 mg-minerals tablet 1 ea PO DAILY supplement 03/26/17 [History Last Taken 12/09/22] omeprazole 40 mg capsule,delayed release 40 mg PO DAILY GERD 12/15/18 [History Last Taken 12/09/22] loratadine 10 mg tablet 10 mg PO DAILY PRN Allergies 03/01/20 [History Last Taken 12/09/22] apixaban 5 mg tablet 5 mg PO BID blood thinner 08/20/20 [History Last Taken 12/09/22] diltiazem HCl 120 mg capsule,extended release 24 hr 120 mg PO DAILY heart rate 08/20/20 [History Last Taken 12/09/22] lisinopril 10 mg tablet 10 mg PO DAILY blood pressure 03/26/21 [History Last Taken 12/09/22] metformin 500 mg tablet,extended release 24 hr 2,000 mg PO DAILY diabetes 03/26/21 [History Last Taken 01/15/22] metoprolol succinate 25 mg tablet,extended release 24 hr 25 mg PO DAILY blood pressure 03/26/21 [History Last Taken 12/09/22] atorvastatin 80 mg tablet 100 mg PO QHS Check with primary doctor 02/07/22 [History Last Taken 12/09/22] furosemide 40 mg tablet 40 mg PO BID diuretic 09/22/22 [History Last Taken 12/09/22] ammonium lactate 12 % lotion 1 applic topical TID 30 days #400 grams 09/24/22 [Rx Last Taken 12/08/22] insulin lispro 100 unit/mL subcutaneous pen (Humalog KwikPen (U-100) Insulin) 50unit (0.5 mL) subcut TIDAC #0 mL 09/24/22 [Rx Last Taken 12/09/22] albuterol sulfate 2.5 mg/3 mL (0.083 %) solution for nebulization 2.5 mg inhalation Q4H PRN SOB 12/09/22 [History Last Taken 12/08/22] empagliflozin 10 mg tablet (Jardiance) 10 mg PO DAILY DM 12/09/22 [History Last Taken 12/09/22] fenofibrate nanocrystallized 145 mg tablet 145 mg PO DAILY CHOLESTEROL 12/09/22 [History Last Taken 12/09/22] furosemide 20 mg tablet 20 mg PO PRN PRN Edema 12/09/22 [History Last Taken Unknown] gabapentin 800 mg tablet 800 mg PO TID NERVE PAIN 12/09/22 [History Last Taken 12/09/22] insulin glargine U-300 conc 300 unit/mL (3 mL) subcutaneous pen (Toujeo Max U- 300 SoloStar) 150 unit subcut DAILY DM 12/09/22 [History Last Taken 12/09/22] nicotine (polacrilex) 2 mg buccal mini lozenge 2 mg PO PRN PRN Smoking Qexexvhxu41/09/23 [History Last Taken 12/08/22] potassium chloride 20 mEq tablet,extended release 20 meq PO BID Check with primary doctor 12/19/22 [History Last Taken Unknown] insulin degludec 200 unit/mL (3 mL) subcutaneous pen (Tresiba FlexTouch U-200 insulin) 104 unit subcut BID DM 12/24/22 [History Last Taken Unknown] Allergy/AdvReac Type Severity Reaction Status Date / Time cyclobenzaprine HCl Allergy Hives Verified 03/02/23 14:00 [From Flexeril] venlafaxine [From Effexor] AdvReac Severe unknown Verified 03/02/23 14:00 Family History Father CVA (cerebral vascular accident) Heart disease Diabetes Mother Thyroid disorder Surgical History H/O arthroscopic knee surgery History of delivery History of cholecystectomy Social History household members: none Smoking Status: Current some day smoker tobacco type: cigarettes how long ago did patient quit smokin PPD smoker second hand exposure: Yes alcohol intake: never substance use type: does not use caffeine: Yes Type: carbonated beverages Number of servings: 1 and coffee Number of servings: 1 ROS ROS Narrative Unable due to sleepiness and being on BiPAP Physical Exam Narrative Morbidly obese sleeping woman in no acute distress. She arouses briefly on stimulation and went back to sleep while on BiPAP. HEENT normocephalic atraumatic mucous membranes are moist extraoculars are intact briefly during eye opening then went back to sleep. Chest is symmetrical with good air movement, no wheezes rales or rhonchi no cough during the visit. Suboptimal exam due to morbid obesity, anterior exam only. Heart normal S1-S2 heart rate 95 sinus rhythm with no murmurs. Abdomen is obese Extremities have chronic venous stasis changes, poor hygiene, fissured skin consistent with recent diuresis, no open lesions noted. deferred Medical Records Data Attestation: I reviewed the patient's medical records Lab / Micro Data Attestation: I reviewed the patient's lab results. Result Diagrams: 03/02/23 14:20 03/02/23 14:20 Labs: Laboratory Results - last 24 hr 03/02/23 14:20: WBC 12.6 H, RBC 3.59 L, Hgb 9.4 L, Hct 33.0 L, MCV 91.9, MCH 26.2 L, MCHC 28.5 L, RDW Std Deviation 57.3 H, RDW Coeff of Darrion 17.0 H, Plt Count 278, MPV 9.6, Immature Gran % (Auto) 1.600 H, Neut % (Auto) 77.6 H, Lymph % (Auto) 15.5 L, Defiance % (Auto) 3.8, Eos % (Auto) 0.7, Baso % (Auto) 0.8, Absolute Neuts (auto) 9.7 H, Absolute Lymphs (auto) 1.94, Nucleated RBC % 2.3 03/02/23 14:20: Sodium 136, Potassium 4.4, Chloride 102, Carbon Dioxide 30.0, Anion Gap 4 L, BUN 12, Creatinine 0.88, Estim Creat Clear Calc 72.64, Est GFR (MDRD) Af Amer 89, Est GFR (MDRD) Non-Af 73, BUN/Creatinine Ratio 13.6, Glucose 261 H, Calcium 8.9, Total Bilirubin 0.30, AST 14 L, ALT 18, Alkaline [id number], Total Protein 7.2, Albumin 2.7 L, Globulin 4.5 H, Albumin/Globulin Ratio 0.6L 03/02/23 14:20: Lactic Acid 2.6 H* 03/02/23 14:20: B-Natriuretic Peptide 68.4 03/02/23 14:24: POC Glucose 250 H 03/02/23 18:00: Troponin I High Sens 29 03/02/23 18:10: Urine Color Yellow, Urine Clarity Clear, Urine pH 6.0, Ur Specific Renick 1.015, Urine Protein 30 H, Urine Glucose (UA) 1000 H, Urine Ketones Negative, Urine Occult Blood 10 H, Urine Nitrite Negative, Urine Bilirubin Negative, Urine Urobilinogen Normal, Ur Leukocyte Esterase Negative, Urine RBC 0 SEEN, Urine WBC 0 SEEN, Ur Squamous Epith Cells 0 SEEN, Urine Bacteria 0 SEEN, Urine Mucus 0 SEEN 03/02/23 18:11: POC Glucose 293 H 03/02/23 18:50: Lactic Acid 0.9 Micro: Microbiology 03/02/23 18:10 Urine Catheter - Catheter Legionella Antigen - Final 03/02/23 18:10 Urine Catheter - Catheter Streptococcus pneumoniae Antigen (M- Final ABG Data ABG results: ABG 03/02/23 03/02/23 14:42 17:22 Specimen Type DAMION ART Sample Site R Radial pH 7.28 L Bicarbonate Actual 34.0 H Total CO2 36 Base Excess 7 H O2 Saturation 86 L O2 % 50 ABG pCO2 72.7 H* ABG pO2 60 L Anil Test Positive VBG pH 7.29 L VBG pO2 60 H VBG HCO3 32 H VBG Total CO2 34 H VBG O2 Sat (Calc) 87 H VBG Base Excess 6 H POC Mix VBG pCO2 Pt Tmp 67.1 H Respiration Rate 10 O2 Delivery Device BiPAP Vent Mode BiLevel Crit Call To/Read Back Yes Blood Gas Notified Raphael lange Radiology Impression Chest X-Ray 03/02/23 14:08 IMPRESSION: Pulmonary findings appear worse. Electronically Signed: George Leiva MD at 15:24 EDT , Charges/Coding Procedures Hospitalists Procedures: 66160 Critial Care 1st Hr 03/02/231951 <Electronically signed by Fadi Box MD> Cosigner Signature (if applicable): CC: FADUMO Hunter; Dr. Berlin Dumont MD; Dr. Tino Oreilly MD; Dr. Ace Sanders DO; Dr. Fadi Box MD; Dr. Jarrett Villalobos MD~ Signed [facility] Work Phone: 1(654) 641-219404-02-[address] Lange [facility] March 02, 2023 6:09pm Note Date/Time March 02, 2023 6:09 pm [facility] Medical Records Department [address] [place] [address] Progress Note - Hospitalist 03/02/23 1807 MR#: [id number] Acct: [id number] Name: MACARIO WALLACE Rep #:[id number] : 1975 47 From: Faraz Lange DO PCP: Dr. Tino Oreilly MD Status :ADM IN Location: ICU CVICU20 1-1 Hospitalist Note ABG 7.28, pCO2 72.7 pO2 60. Consistent with chronic respiratory acidosis. Patient more alert and interactive. Patient able to tell me that she has been more short of breath particular with exertion over the past couple days. Patient states that she is breathing better. Pulse ox is around 90% on 50% [id number] the BiPAP. Patient overall appears better though her blood gas is not significant improvement over the venous blood gas. I think at this time, we canavoid intubation and continue with the current medical treatment. Discussed with patient's RN. 03/02/231808 <Electronically signed by Faraz Lange DO> Cosigner Signature (if applicable): CC: ~ Signed [facility] Work Phone: 1(871) 213-755904-02-2023 History and physical note Author Dr. Lange [facility] March 02, 2023 5:02pm Note Date/Time March 02, 2023 4:49 pm [facility] Medical Records Department [address] [place] [address] H&P Exam - Hospitalist 03/02/23 1638 MR#: [id number] Acct: [id number] Name: MACARIO WALLACE Rep #:[id number] : 1975 47 From: Faraz Lange DO PCP: Dr. Tino Oreilly MD Status :ADM IN Location: ICU CVICU20 1-1 HPI - General General Date of Admission: 03/02/23 Date of Service: 03/02/23 Chief Complaint: shortness of breath. HPI Narrative MACARIO WALLACE, is a 47 F who presents with shortness of breath. Patient is currently on a BiPAP and is listless and the history is obtained to the emergency room physician as well as the patient's daughter. Patient became short of breath today. Patient is normally on oxygen at 3 L but was much more hypoxic. Patient had a venous blood gas showed pH is 7.2, PO2 of 60 PCO2 of 34. Patient was placed on a BiPAP. Patient had a chest x-ray that was concerning for a right upper lobe infiltrate and patient received methylprednisolone, ceftriaxone and azithromycin. [facility] Medical History (Updated 03/02/23 @ 16:[address] Faraz Lange DO) Abscess Abscess of vulva KERRY (acute kidney injury) Anxiety BiPAP (biphasic positive airway pressure) dependence Chronic diastolic (congestive) heart failure Chronic respiratory failure with hypoxia Contusion of knee, right COPD (chronic obstructive pulmonary disease) Depression Diabetes Dyspnea on exertion Essential hypertension GERD (gastroesophageal reflux disease) Hidradenitis History of left heart catheterization (LHC) (~01/05/19) History of MRSA infection Hyperglycemia due to type 2 diabetes mellitus Hyperlipidemia Hypertension Morbid obesity Necrotizing soft tissue infection Non-healing open wound of left groin NSTEMI (non-ST elevated myocardial infarction) 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 Old myocardial infarction On home oxygen therapy Open wound of vulva with complication Opiate overdose Perianal abscess Pulmonary embolism Respiratory failure with hypoxia Restrictive lung disease secondary to obesity Sleep apnea Smoker Soft tissue abscess of inguinal region Tobacco abuse Type 2 diabetes mellitus Home Medications multivit-iron 18 mg-folic acid 400 mcg-calcium 500 mg-minerals tablet 1 ea PO DAILY supplement 03/26/17 [History Last Taken 12/09/22] omeprazole 40 mg capsule,delayed release 40 mg PO DAILY GERD 12/15/18 [History Last Taken 12/09/22] loratadine 10 mg tablet 10 mg PO DAILY PRN Allergies 03/01/20 [History Last Taken 12/09/22] apixaban 5 mg tablet 5 mg PO BID blood thinner 08/20/20 [History Last Taken 12/09/22] diltiazem HCl 120 mg capsule,extended release 24 hr 120 mg PO DAILY heart rate 08/20/20 [History Last Taken 12/09/22] lisinopril 10 mg tablet 10 mg PO DAILY blood pressure 03/26/21 [History Last Taken 12/09/22] metformin 500 mg tablet,extended release 24 hr 2,000 mg PO DAILY diabetes 03/26/21 [History Last Taken 01/15/22] metoprolol succinate 25 mg tablet,extended release 24 hr 25 mg PO DAILY blood pressure 03/26/21 [History Last Taken 12/09/22] atorvastatin 80 mg tablet 100 mg PO QHS Check with primary doctor 02/07/22 [History Last Taken 12/09/22] furosemide 40 mg tablet 40 mg PO BID diuretic 09/22/22 [History Last Taken 12/09/22] ammonium lactate 12 % lotion 1 applic topical TID 30 days #400 grams 09/24/22 [Rx Last Taken 12/08/22] insulin lispro 100 unit/mL subcutaneous pen (Humalog KwikPen (U-100) Insulin) 50unit (0.5 mL) subcut TIDAC #0 mL 09/24/22 [Rx Last Taken 12/09/22] albuterol sulfate 2.5 mg/3 mL (0.083 %) solution for nebulization 2.5 mg inhalation Q4H PRN SOB 12/09/22 [History Last Taken 12/08/22] empagliflozin 10 mg tablet (Jardiance) 10 mg PO DAILY DM 12/09/22 [History Last Taken 12/09/22] fenofibrate nanocrystallized 145 mg tablet 145 mg PO DAILY CHOLESTEROL 12/09/22 [History Last Taken 12/09/22] furosemide 20 mg tablet 20 mg PO PRN PRN Edema 12/09/22 [History Last Taken Unknown] gabapentin 800 mg tablet 800 mg PO TID NERVE PAIN 12/09/22 [History Last Taken 12/09/22] insulin glargine U-300 conc 300 unit/mL (3 mL) subcutaneous pen (Toujeo Max U- 300 SoloStar) 150 unit subcut DAILY DM 12/09/22 [History Last Taken 12/09/22] nicotine (polacrilex) 2 mg buccal mini lozenge 2 mg PO PRN PRN Smoking Mjwqwhzxm92/09/23 [History Last Taken 12/08/22] potassium chloride 20 mEq tablet,extended release 20 meq PO BID Check with primary doctor 12/19/22 [History Last Taken Unknown] insulin degludec 200 unit/mL (3 mL) subcutaneous pen (Tresiba FlexTouch U-200 insulin) 104 unit subcut BID DM 12/24/22 [History Last Taken Unknown] Allergy/AdvReac Type Severity Reaction Status Date / Time cyclobenzaprine HCl Allergy Hives Verified 03/02/23 14:00 [From Flexeril] venlafaxine [From Effexor] AdvReac Severe unknown Verified 03/02/23 14:00 Family History Father CVA (cerebral vascular accident) Heart disease Diabetes Mother Thyroid disorder Surgical History H/O arthroscopic knee surgery History of delivery History of cholecystectomy Social History household members: none Smoking Status: Current some day smoker tobacco type: cigarettes how long ago did patient quit smokin PPD smoker second hand exposure: Yes alcohol intake: never substance use type: does not use caffeine: Yes Type: carbonated beverages Number of servings: 1 and coffee Number of servings: 1 ROS ROS Narrative Daughter states that the patient has recently lost 60 pounds of water weight. Is currently on a BiPAP and is not answering questions though it seems much of it is intentional not because she is obtunded. Vital Signs Vital Signs Vital Signs: 03/02/23 13:55 03/02/23 14:23 03/02/23 14:32 Temperature 36.2 C L Temperature Source Temporal Pulse Rate 106 H 95 Respiratory Rate 22 H 19 H Respiratory Effort Respiratory Depth Respiratory Pattern Blood Pressure 119/60 Blood Pressure Mean 79 Pulse Ox 87 92 Oxygen Delivery Method Nasal Cannula High Flow Oxygen Flow Rate (L/min) 5 8 Fraction of Inspired Oxygen (FIO2) 03/02/23 15:00 03/02/23 15:03 03/02/23 14:50 Temperature Temperature Source Pulse Rate 95 Respiratory Rate 24 H 24 H Respiratory Effort Short of Breath Respiratory Depth Shallow Respiratory Pattern Tachypnea Blood Pressure 108/64 Blood Pressure Mean 78 Pulse Ox 91 91 Oxygen Delivery Method Bi-pap Nasal Cannula Oxygen Flow Rate (L/min) 3 Fraction of Inspired Oxygen (FIO2) 35 03/02/23 15:54 03/02/23 15:06 03/02/23 15:08 Temperature 36.6 C Temperature Source Temporal Pulse Rate 88 Respiratory Rate 23 H Respiratory Effort Respiratory Depth Respiratory Pattern Blood Pressure 108/64 Blood Pressure Mean 78 Pulse Ox 88 85 91 Oxygen Delivery Method Bi-pap Oxygen Flow Rate (L/min) Fraction of Inspired Oxygen (FIO2) 35 40 Weight Weight: 171.4 kg Body Mass Index (BMI) 62.8 Physical Exam Const Constitutional Narrative: . Morbidly obese. HEENT normocephalic and head/scalp atraumatic Eyes Eyes Narrative: Did not open them on exam or during the entire encounter. Neck Neck Narrative: Neck tissue today. Resp Resp Narrative: Sounds bilaterally Cardio Cardio Narrative: Regular. GI normal to inspection, nondistended, normoactive bowel sounds, soft to palpation and non-tender GI Narrative: (Exam with female staff present) With a very large pannus. Vulvar wound appearsbeefy red, but no surrounding erythema. I did not appreciate any right sided wound Extremity Extremity Narrative: Bilateral lymphedematous changes with venous stasis dermatitis. Patient does have a wound on her left lower extremity and does have a bandage overlying. Didnot remove the bandage. No significant edema in the lower extremities. Neuro moves all extremities Neuro Narrative: Given this reluctance to engage in them. Psych affect normal Results Lab / Micro Data Result Diagrams: 03/02/23 14:20 03/02/23 14:20 Labs: Laboratory Results - last 24 hr 03/02/23 14:20: WBC 12.6 H, RBC 3.59 L, Hgb 9.4 L, Hct 33.0 L, MCV 91.9, MCH 26.2 L, MCHC 28.5 L, RDW Std Deviation 57.3 H, RDW Coeff of Darrion 17.0 H, Plt Count 278, MPV 9.6, Immature Gran % (Auto) 1.600 H, Neut % (Auto) 77.6 H, Lymph % (Auto) 15.5 L, [place] % (Auto) 3.8, Eos % (Auto) 0.7, Baso % (Auto) 0.8, Absolute Neuts (auto) 9.7 H, Absolute Lymphs (auto) 1.94, Nucleated RBC % 2.3 03/02/23 14:20: Sodium 136, Potassium 4.4, Chloride 102, Carbon Dioxide 30.0, Anion Gap 4 L, BUN 12, Creatinine 0.88, Estim Creat Clear Calc 72.64, Est GFR (MDRD) Af Amer 89, Est GFR (MDRD) Non-Af 73, BUN/Creatinine Ratio 13.6, Glucose 261 H, Calcium 8.9, Total Bilirubin 0.30, AST 14 L, ALT 18, Alkaline [id number], Total Protein 7.2, Albumin 2.7 L, Globulin 4.5 H, Albumin/Globulin Ratio 0.6L 03/02/23 14:20: Lactic Acid 2.6 H* 03/02/23 14:20: B-Natriuretic Peptide 68.4 03/02/23 14:24: POC Glucose 250 H ABG Data ABG results: ABG 03/02/23 14:42 Specimen Type DAMION VBG pH 7.29 L VBG pO2 60 H VBG HCO3 32 H VBG Total CO2 34 H VBG O2 Sat (Calc) 87 H VBG Base Excess 6 H POC Mix VBG pCO2 Pt Tmp 67.1 H Radiology Impression Chest X-Ray 03/02/23 14:08 IMPRESSION: Pulmonary findings appear worse. Electronically Signed: George Leiva MD at 15:24 EDT , Assessment & Plan Assessment/Plan (1) Acute on chronic respiratory failure with hypercapnia: PLAN: Hypoxia and hypercapnia Multifactorial: Due to pneumonia, obesity hypoventilation, possible CHF, Currently on BiPAP Check ABG Bronchodilators IV furosemide Methylprednisolone CCM consult Cannot rule out the possibility of endotracheal intubation. (2) Pneumonia: PLAN: Patient has recent been hospitalized just recently so we will treat her for potential healthcare acquired pneumonia. See if ceftriaxone azithromycin emergency room, I will change it over to Pipracil/tazobactam and vancomycin PEP Therapy (3) Perianal abscess: PLAN: Left vulvar wound appears to be healing. Reviewed records through [facility] via [facility]: Patient was found to have necrotizing fasciitis of her left groin on December 24. Patient underwent debridement on the . Patient was subsequently discharged from that and then returned on January 13 with pain in the right groin and patient went to the OR and had incision and drainage at that time on the right side. Patient had follow-up appointment on the which they switched her over to dry dressing. Vancomycin was discontinued at that time. We will consult wound care for routine wound management. (4) Type 2 diabetes mellitus with hyperglycemia: PLAN: Insulin-dependent Basal insulin Hold off on scheduled log until patient can be eating normally Hold Jardiance and metformin Sliding scale insulin (5) Acidosis, lactic: PLAN: Likely secondary to hypoxia No additional work up at this time. PLAN: Plan Chronic medical conditions * Obesity with a BMI 62.9 kg/m? complicates care and long-term recovery. * Heart failure preserved ejection fraction * Adrenal incidentaloma: continue appropriate follow up if still indicated. * GERD: PPI * History of narcotic abuse * LOGAN: Uses CPAP. * VTE: apixaban * HTN: continue lisinopril * HLP: hold statin for the time being * nicotine abuse: smokes and/or vapes. Cessation instructions when pt more alert and appropriate. VTE prophylaxis: not indicated as pt already on anticoagulation. Charges/Coding Visit Charges Inpatient E&M: 92788 Init Hosp 03/02/23 1702 <Electronically signed by Faraz Lange DO> Cosigner Signature (if applicable): CC: Dr. Tino Oreilly MD; Dr. Faraz Lange DO~ Signed [facility] Work Phone: [phone]) 431-694404-02-[address] Kaiser [facility] March 02, 2023 3:43pm Note Date/Time March 02, 2023 2:32 pm [facility] Medical Records Department [address] [place] [address] Emergency Department Summary 03/02/23 MR#: [id number] Acct: [id number] Name: MACARIO WALLACE Rep #:[id number] : 1975 47 From: Jozef Kaiser MD PCP: Dr. Tino Oreilly MD Status :REG ER Location: ED HPI History of Present Illness Chief Complaint: Shortness of Breath Detail of Chief Complaint: As of breath, cough that got worse over the past couple of days. Informant: patient Onset/Context/Timing Onset: Days Context: gradual, rest and exertion Timing: Continuous and Waxes and wanes Quality: Positive for Dyspnea on exertion and Wheezing; Negative for Orthopnea or PND Current Severity: Mild Maximum Severity: Severe Associated Symptoms cough; Negative for rhinorrhea, post nasal drip, ear pain, fever, sore throat, subjective, chills, sweats or clear sputum Chest Pain: Positive for None Narrative Narrative: Patient is a 47-year-old morbidly obese woman with obstructive sleep apnea on chronic oxygen by nasal cannula at 3 L who does admit to smoking approximately apack a day. After I walked out of the room she admitted to nurse that she has been using electronic cigarettes as well. She is using electronic cigarettes because her friend told her that they are less harmful. Patient endorses cough that is minimally productive. She denies rhinorrhea, congestion. She denies fever. She denies history of PE or DVT. She does endorse history of obstructive sleep apnea, pulmonary hypertension, heart failure, type 2 diabetes. Review of prior records indicates patient has preserved ejection fraction. PE Risk Factors: Negative for Cancer, OCP + Smoking + > 35, Prior DVT or PE, Recent surgery or Recent travel Prior similar symptoms: Yes PFSH PFSH Medical History Abscess Abscess of vulva KERRY (acute kidney injury) Anxiety BiPAP (biphasic positive airway pressure) dependence Chronic diastolic (congestive) heart failure Chronic respiratory failure with hypoxia Contusion of knee, right COPD (chronic obstructive pulmonary disease) Depression Diabetes Dyspnea on exertion Essential hypertension GERD (gastroesophageal reflux disease) Hidradenitis History of left heart catheterization (LHC) (~01/05/19) History of MRSA infection Hyperglycemia due to type 2 diabetes mellitus Hyperlipidemia Hypertension Morbid obesity Necrotizing soft tissue infection Non-healing open wound of left groin NSTEMI (non-ST elevated myocardial infarction) 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 Old myocardial infarction On home oxygen therapy Open wound of vulva with complication Opiate overdose Pulmonary embolism Respiratory failure with hypoxia Restrictive lung disease secondary to obesity Sleep apnea Smoker Soft tissue abscess of inguinal region Tobacco abuse Type 2 diabetes mellitus Home Medications multivit-iron 18 mg-folic acid 400 mcg-calcium 500 mg-minerals tablet 1 ea PO DAILY supplement 03/26/17 [History Last Taken 12/09/22] omeprazole 40 mg capsule,delayed release 40 mg PO DAILY GERD 12/15/18 [History Last Taken 12/09/22] loratadine 10 mg tablet 10 mg PO DAILY PRN Allergies 03/01/20 [History Last Taken 12/09/22] apixaban 5 mg tablet 5 mg PO BID blood thinner 08/20/20 [History Last Taken 12/09/22] diltiazem HCl 120 mg capsule,extended release 24 hr 120 mg PO DAILY heart rate 08/20/20 [History Last Taken 12/09/22] lisinopril 10 mg tablet 10 mg PO DAILY blood pressure 03/26/21 [History Last Taken 12/09/22] metformin 500 mg tablet,extended release 24 hr 2,000 mg PO DAILY diabetes 03/26/21 [History Last Taken 01/15/22] metoprolol succinate 25 mg tablet,extended release 24 hr 25 mg PO DAILY blood pressure 03/26/21 [History Last Taken 12/09/22] atorvastatin 80 mg tablet 100 mg PO QHS Check with primary doctor 02/07/22 [History Last Taken 12/09/22] furosemide 40 mg tablet 40 mg PO BID diuretic 09/22/22 [History Last Taken 12/09/22] ammonium lactate 12 % lotion 1 applic topical TID 30 days #400 grams 09/24/22 [Rx Last Taken 12/08/22] insulin lispro 100 unit/mL subcutaneous pen (Humalog KwikPen (U-100) Insulin) 50unit (0.5 mL) subcut TIDAC #0 mL 09/24/22 [Rx Last Taken 12/09/22] albuterol sulfate 2.5 mg/3 mL (0.083 %) solution for nebulization 2.5 mg inhalation Q4H PRN SOB 12/09/22 [History Last Taken 12/08/22] empagliflozin 10 mg tablet (Jardiance) 10 mg PO DAILY DM 12/09/22 [History Last Taken 12/09/22] fenofibrate nanocrystallized 145 mg tablet 145 mg PO DAILY CHOLESTEROL 12/09/22 [History Last Taken 12/09/22] furosemide 20 mg tablet 20 mg PO PRN PRN Edema 12/09/22 [History Last Taken Unknown] gabapentin 800 mg tablet 800 mg PO TID NERVE PAIN 12/09/22 [History Last Taken 12/09/22] insulin glargine U-300 conc 300 unit/mL (3 mL) subcutaneous pen (Toujeo Max U- 300 SoloStar) 150 unit subcut DAILY DM 12/09/22 [History Last Taken 12/09/22] nicotine (polacrilex) 2 mg buccal mini lozenge 2 mg PO PRN PRN Smoking Qmgewiixy86/09/23 [History Last Taken 12/08/22] potassium chloride 20 mEq tablet,extended release 20 meq PO BID Check with primary doctor 12/19/22 [History Last Taken Unknown] insulin degludec 200 unit/mL (3 mL) subcutaneous pen (Tresiba FlexTouch U-200 insulin) 104 unit subcut BID DM 12/24/22 [History Last Taken Unknown] Allergy/AdvReac Type Severity Reaction Status Date / Time cyclobenzaprine HCl Allergy Hives Verified 03/02/23 14:00 [From Flexeril] venlafaxine [From Effexor] AdvReac Severe unknown Verified 03/02/23 14:00 Family History Father CVA (cerebral vascular accident) Heart disease Diabetes Mother Thyroid disorder Surgical History H/O arthroscopic knee surgery History of delivery History of cholecystectomy Social History household members: none Smoking Status: Current some day smoker tobacco type: cigarettes how long ago did patient quit smokin PPD smoker second hand exposure: Yes alcohol intake: never substance use type: does not use caffeine: Yes Type: carbonated beverages Number of servings: 1 and coffee Number of servings: 1 ROS ROS ED Constitutional Constitutional ED: Reports sweats; Denies chills, fever(s) or weight loss Eyes Eyes: Denies blurry vision, change in vision or diplopia ENT ENT ED: Denies ear pain or rhinorrhea Cardiovascular Cardiovascular: Reports orthopnea; Denies chest pain, palpitations, paroxysmal nocturnal dyspnea or racing heartbeat Respiratory/Chest Respiratory/Chest: Reports cough, dyspnea, dyspnea on exertion and orthopnea; Denies paroxysmal nocturnal dyspnea Gastrointestinal Gastrointestinal: Denies abdominal pain, diarrhea, nausea or vomiting Genitourinary Genitourinary ED: Denies dysuria, hematuria or urinary frequency Musculoskeletal Musculoskeletal: Denies arthralgias, back pain, myalgias or neck pain Neurologic Neurologic: Reports weakness; Denies headache(s) or paresthesias Psychiatric Psychiatric: Denies anxiety Endocrine Endocrinology: Denies cold intolerance or heat intolerance Hematologic/Lymphatic Hematologic/Lymphatic: Denies easy bleeding or easy bruising EXAM Physical Exam Const Vital Signs: 03/02/23 13:55 03/02/23 14:23 03/02/23 14:32 Temperature 97.1 F L Temperature Source Temporal Pulse Rate 106 H 95 Respiratory Rate 22 H 19 H Respiratory Effort Respiratory Depth Respiratory Pattern Blood Pressure 119/60 Blood Pressure Mean 79 Pulse Ox 87 92 Oxygen Delivery Method Nasal Cannula High Flow Oxygen Flow Rate (L/min) 5 8 Fraction of Inspired Oxygen (FIO2) 03/02/23 15:00 03/02/23 15:03 03/02/23 14:50 Temperature Temperature Source Pulse Rate 95 Respiratory Rate 24 H 24 H Respiratory Effort Short of Breath Respiratory Depth Shallow Respiratory Pattern Tachypnea Blood Pressure 108/64 Blood Pressure Mean 78 Pulse Ox 91 91 Oxygen Delivery Method Bi-pap Nasal Cannula Oxygen Flow Rate (L/min) 3 Fraction of Inspired Oxygen (FIO2) 35 Positive well nourished, well developed and obese Constitutional Narrative: Patient is tachypneic and tachycardic. She is hypoxic on 5 L. She is normally on 3 L. General Appearance ED: well developed and pallor; Negative for NAD Nutritional Appearance: obese HEENT Reports dry mucous membranes HEENT Narrative: Head is atraumatic normocephalic. Ears normal. Nares patent. Posterior pharynx is unremarkable. Mouth ED: Yes dry mucous membranes Mouth: dry mucous membranes Eyes PERRL and EOMs intact bilaterally General Eye ED: Negative for pale conjunctiva or scleral icterus Neck no lymphadenopathy, supple, no meningeal signs and no JVD Neck Narrative: There is no inspiratory expiratory stridor. Resp normal respiratory effort and No clear to auscultation bilaterally Auscultation: rales bilateral base and wheezes expiratory wheezes and scattered wheezes Cardio regular rhythm, S1 normal heart sound, S2 normal heart sound and no murmurs Rate: tachycardic GI non-tender, non-distended and no masses Back/Spine no CVA tenderness and normal to inspection Extremity Negative for normal to inspection General Extremety ED: Yes edema; Negative for tenderness General Extremity: edema Neuro oriented x3, CN's II-XII intact bilaterally and no sensory deficits noted [place] Coma Scale: document GCS findings Spontaneous Obeys Commands Oriented 15 Sensorium / Orientation: Negative for alert Psych Mood & Affect: depressed Skin no wounds and skin turgor normal General Skin Exam: pallor MDM MDM MDM Narrative Medical decision making narrative: Patient with history of chronic respiratory failure requiring significant more oxygen. Since she is not alert we will obtain VBG to assess acid-base status and specifically CO2. Because there are rales noted at the base and expiratory wheezing throughout will obtain chest x-ray to assess for pneumonia. We will also treat with DuoNeb, albuterol and Solu-Medrol. The Solu-Medrol may cause her blood sugar to rise since she has type 2 diabetes. The rales may be due to heart failure as well. And she does have history of heart failure. Will obtaina BNP. CBC was obtained assess white count as well as H&H to rule out anemia asa cause of her increased dyspnea. Basic metabolic panel to assess renal function, glucose/CO2 anion gap. Patient has evidence of a metabolic acidosis as well as respiratory acidosis probably acute on chronic. Patient was placed on BiPAP. Since patient has elevated lactate tachycardia, tachypnea requiring BiPAP she has severe sepsis. Since she has not been hospitalized since October she was treated with Rocephin and azithromycin. History & Record Review Discussion w/independent historian: EMS personnel and Patient Additional record(s) reviewed:: Prior inpatient record, Prior outpatient record,Prior ED visit and Other (History of congestive heart failure with preserved ejection fraction, chronic respiratory failure on oxygen, community-acquired pneumonia requiring admission.) Lab Data Attestation: I reviewed the patient's lab results. Lab results narrative: White count is elevated with slight shift. Patient is anemic with an H&H of 9.4and 33.0. Comprehensive metabolic panel shows a glucose of 261 with normal CO2 and anion gap. Lactate is elevated 2.6. This may be due to hypoxia Labs: Laboratory Results - last 24 hr 03/02/23 03/02/23 03/02/23 14:20 14:20 14:20 WBC 12.6 H RBC 3.59 L Hgb 9.4 L Hct 33.0 L MCV 91.9 MCH 26.2 L MCHC 28.5 L RDW Std Deviation 57.3 H RDW Coeff of Darrion 17.0 H Plt Count 278 MPV 9.6 Immature Gran % (Auto) 1.600 H Neut % (Auto) 77.6 H Lymph % (Auto) 15.5 L Def[place] % (Auto) 3.8 Eos % (Auto) 0.7 Baso % (Auto) 0.8 Absolute Neuts (auto) 9.7 H Absolute Lymphs (auto) 1.94 Nucleated RBC % 2.3 Sodium 136 Potassium 4.4 Chloride 102 Carbon Dioxide 30.0 Anion Gap 4 L BUN 12 Creatinine 0.88 Estim Creat Clear Calc 72.64 Est GFR (MDRD) Af Amer 89 Est GFR (MDRD) Non-Af 73 BUN/Creatinine Ratio 13.6 Glucose 261 H Lactic Acid 2.6 H* Calcium 8.9 Total Bilirubin 0.30 AST 14 L ALT 18 Alkaline Phosphatase 59 B-Natriuretic Peptide Total Protein 7.2 Albumin 2.7 L Globulin 4.5 H Albumin/Globulin Ratio 0.6 L POC Glucose 03/02/23 03/02/23 14:20 14:24 WBC RBC Hgb Hct MCV MCH MCHC RDW Std Deviation RDW Coeff of Darrion Plt Count MPV Immature Gran % (Auto) Neut % (Auto) Lymph % (Auto) Defiance % (Auto) Eos % (Auto) Baso % (Auto) Absolute Neuts (auto) Absolute Lymphs (auto) Nucleated RBC % Sodium Potassium Chloride Carbon Dioxide Anion Gap BUN Creatinine Estim Creat Clear Calc Est GFR (MDRD) Af Amer Est GFR (MDRD) Non-Af BUN/Creatinine Ratio Glucose Lactic Acid Calcium Total Bilirubin AST ALT Alkaline Phosphatase B-Natriuretic Peptide 68.4 Total Protein Albumin Globulin Albumin/Globulin Ratio POC Glucose 250 H ABG Data ABG results: ABG 03/02/23 14:42 Specimen Type DAMION VBG pH 7.29 L VBG pO2 60 H VBG HCO3 32 H VBG Total CO2 34 H VBG O2 Sat (Calc) 87 H VBG Base Excess 6 H POC Mix VBG pCO2 Pt Tmp 67.1 H Radiography Chest X-Ray - ED: 1 View and Read by ED Physician (X-ray was independent reviewed interpreted by me at 1515. Patient has a significant infiltrate on theright. The film is rotated. Comparison film December 18, 2022. There is a significant difference. There is no curly B-lines and there is no cephalizationdoubt this to be heart failure.) Diagnostic Testing: Clinical Impression(s) from Imaging Studies Chest X-Ray 03/02/23 14:08 IMPRESSION: Pulmonary findings appear worse. Electronically Signed: George Leiva MD at 15:24 EDT Reading Location ID and State: [facility] / [place] , Service support , EKG Initial EKG: Attestation: I personally reviewed and interpreted this EKG as follows: Interpretation: Sinus Rhythm (97. EKG is normal. The GA interval is 132,QRS duration 88 ms, QT duration 358 ms and the axis is normal.) Prior: Unchanged (Prior EKG was dated December 18, 2022) Critical Care Time Critical Care Time: Yes Critical care time (excluding procedures): 30-74 minutes (42), Including time spent: (History, physical, documentation, review of prior records, interpretation of laboratory results initiation of therapy and interpretation ofchest x-ray), Discussing w/Patient &/or Family/Engineering Associate, Discussing w/Consultants, Arranging Admission or Transfer and Performing Direct Patient Care at Bedside (Repeat examinations x3) Discharge Plan Dx/Rx/DC Orders Clinical Impression: Acute on chronic respiratory failure with hypercapnia, Type 2 diabetes mellituswith hyperglycemia, Community acquired pneumonia, Acute on chronic respiratory failure with hypoxemia, Acute bronchospasm, Severe sepsis, Acidosis, lactic Disposition Disposition: Acute Care Hospital [facility] What to do if you have Problems For any increased pain, shortness of breath, bleeding, nausea or vomiting, chestpain, or any unexpected problems, contact your Primary Care Provider. Call [facility] ([phone]) or report to the closest Emergency Room. Call 911 if necessary. 03/02/23 1543 <Electronically signed by Jozef Kaiser MD> Cosigner Signature (if applicable): CC: Dr. Tino Oreilly MD ~ Signed [facility] Work Phone: [phone]) 449-557903-30-2023 Miscellaneous Notes* SN Routine - Bonnie Yuen RN - 02/27/2023 3:53 PM EDT SITUATION: Alf routine visit completed today. other family members also present during today's visit. patient reports the following: Allergies--reviewed Medications--reviewed current medications Falls--None BACKGROUND: Reason for Home Care: wound care ASSESSMENT: SN greeted at door by caregiver. Upon entrance patient found in chair Patient appears in no acute distress. Patient/CG concerns verbalized today: Pt verbalizes that she continues to have a great deal of painwith wound care. Vitals (see flow sheet for details): stable SN findings today: Pt is sitting in chair, she is on the phone with someone from her insurance co about getting a new chair. SN assisted pt with obtaining some needed measurements. SN performed woundcare; L perineal wound is light red in color, it is difficult for pt to position for good wound visualization; flashlight used-wound bed is light red, no evidence of purulent drainage or slough tissue noted. L [place] wound care also performed. Pt reports that she is in need of supplies. Supply order sent to [facility]. Pt is on continuous O2 which she has been compliant with. Pt is short of breath with moderate exertion. Pt reported to this SN that she thinks that she is having an insurance changeto [place] on 03/01-will need to follow up on this. Pt has a friend who is assisting her with wound care on non SN vs days. See intervention summary for education details. Patient demonstrated a need for further skilled SN services for chronic disease management & education, medication education, wound/skin care and safety. Current Discharge plan: self-care and family support RECOMMENDATION: Next visit to focus on (be specific): wound care. documented in this encounterCleveland Clinic Foundation03-29-2023 Miscellaneous Notes* Telephone Encounter - Panfilo Oreilly MD - 02/26/2023 4:14 PM EDT Are they only going to be helping with bathing? She had home health care order to assist with woundin her groin. Who is coming out to help with dressing changes for this? * Telephone Encounter - Bharat Gardner RN - 02/26/2023 2:[address] Oreilly, Home health is requesting an order for a home health aide referral as patient's Waiver program is unable to find a home health aide due to the labor shortage. We will provide a bath aide to assist patient wither personal care weekly x9 weeks beginning this week. I thank you in advance for your review of this request and forthcoming order. Bharat Gardner RN Care Coordination with [place] for [facility]. documented in this encounterCleveland Clinic Foundation03-29-2023 Miscellaneous Notes* HH CARE COORDINATION - PER [place] - 02/26/2023 2:30 PM EDT 02/26/23 2;44 PM - 2:47 PM RAKING MACHINE OPERATOR called the pt. regarding the talent development director requested orders for herto get a PROFESSOR OF ECONOMICS to assist with bathing. The pt. stated she did not want a PROFESSOR OF ECONOMICS once a week and wants her Aide hours under Waiver. RAKING MACHINE OPERATOR discussed that Brandy Radanof [facility] Caustics Loader with [facility] discussed her getting the PROFESSOR OF ECONOMICS until they find anAide under Waiver. The pt. stated her daughter can assist her with bathing. The pt. stated that shereceived a phone call from Elaine [facility] regarding they needed the measurement for the lift chair.RAKING MACHINE OPERATOR discussed that Brandy was sening the measurements to Elaine and RAKING MACHINE OPERATOR could follow-up. The pt. stated Elaine was waiting on an Email with the measurements. The pt. supportive of that. The pt. to call RAKING MACHINE OPERATOR with any needs. 02/26/23 2:49 PM - 2:51 PM RAKING MACHINE OPERATOR called Brandy [facility] Caustics Loader with [facility] and left her a message that RAKING MACHINE OPERATOR spoke to the pt. and Ludin Hazardous Substances Engineer messaged the DrSusan regarding the pt. getting a PROFESSOR OF ECONOMICS for bathing assist. The pt. does not want the PROFESSOR OF ECONOMICS and stated her daughter could assist her with bathing. The pt. stated that [place] Wilber called her and needing the measurements for her to get her lift chair. The pt. waiting to get the Aide under Waiver. RAKING MACHINE OPERATOR left her name and phone number. documented in this encounterCleveland Clinic Foundation03-28-2023 Miscellaneous Notes* HH CARE COORDINATION - PER [place] - 02/25/2023 2:45 PM EDT 02/25/23 2:49 PM - 2:54 PM RAKING MACHINE OPERATOR received a phone call back from Brandy [facility] Caustics Loader with [facility]. She stated she is following-upwith the regarding if order faxed to a [employer] for the pt. to get a scooter. She stated shesaw the pt. yesterday and got the measurements for the pt. to get a lif chair and is working with Elaine Merino for the lift chair. The pt. receives Home Delivered Meals. The pt. to get an ER Medical Alert and Brandy stated they had been trying to reach the pt. and she informed the pt. to answer her phone. Brandy is trying to find an Aide for the pt. She stated she told the pt. to ask about getting a PROFESSOR OF ECONOMICS to assist with bathing until she could get an Aide under Waiver. RAKING MACHINE OPERATOR informed Brandy that JORGE LUISWwill talk with the talent development director regarding a PROFESSOR OF ECONOMICS for the pt. RAKING MACHINE OPERATOR will continue to coordinate withSarah as needed. 02/25/23 3:03 PM RAKING MACHINE OPERATOR Emailed Bharat Gardner RN Case Manager - Aung, the pt. Macario Wallace is on Waiver and her Waiver Caustics Loader asked about the pt. getting a PROFESSOR OF ECONOMICS until she would get an Aide under Waiver. They cannot find an Aide for the pt. yet. Thanks, documented in this encounterCleveland Clinic Foundation03-28-2023 Miscellaneous Notes* HH CARE COORDINATION - PER [place] - 02/25/2023 10:00 AM EDT 02/25/23 10:00 AM - 10:06 AM RAKING MACHINE OPERATOR called [facility] and spoke to Fabienne Stevens regarding who the pt.'s Waiver Caustics Loader was and she stated Brandy Ross with [facility] # [phone]. Fabienne stated she could transfer RAKING MACHINE OPERATOR to Brandy. RAKING MACHINE OPERATOR was transferred and RAKING MACHINE OPERATOR left Brandy [facility] Ca[facility] Load[facility] a message that the pt. was active with [facility] for Nursing. RAKING MACHINE OPERATOR stated she was calling to coordinate thw pt.'scare and her services in the home. The pt. asking about an Aide. power wheelchair and lift chair. RAKING MACHINE OPERATOR left her name and phone number for Brandy to call RAKING MACHINE OPERATOR back. 02/25/23 10:06 AM - 10:11 AM RAKING MACHINE OPERATOR called the pt. regarding RAKING MACHINE OPERATOR [facility] Brandy Ross and left her a message. The pt. stated that Brandy came to see her yesterday. She stated that Brandy is trying to find her an Aide. RAKING MACHINE OPERATOR asked about the power wheelchair and liftchair. The pt. stated Brandy is looking into equipment for her, also. RAKING MACHINE OPERATOR asked the pt. if she received Home Delivered Meals and she stated that she did. RAKING MACHINE OPERATOR asked the pt. if she had an ER Medical Alert and she stated that Brandy was ordering her one. RAKING MACHINE OPERATOR asked the pt. if she was new on Waiver and she stated she has been on Waiver for a couple of months. RAKING MACHINE OPERATOR asked the pt. if she had needed transportation to medical appointments. She stated if her daughter does not take her she uses transportationunder her [facility]. RAKING MACHINE OPERATOR provided the pt. with her name and phone number to call with anyneeds. RAKING MACHINE OPERATOR will follow-up with her. 02/25/[address] Panfilo Oreilly - RAKING MACHINE OPERATOR called the pt. regarding RAKING MACHINE OPERATOR called her [facility] Caustics Loader Brandy Ross and left her a message. The pt. stated that Brandy cameto see her yesterday. She stated that Brandy is trying to find her an Aide. RAKING MACHINE OPERATOR asked about the power wheelchair and lift chair. The pt. stated Brandy is looking into equipment for her, also. RAKING MACHINE OPERATOR askedthe pt. if she received Home Delivered Meals and she stated that she did. RAKING MACHINE OPERATOR asked the pt. if she had an ER Medical Alert and she stated that Brandy was ordering her one. RAKING MACHINE OPERATOR asked the pt. if she wasnew on Waiver and she stated she has been on Waiver for a couple of months. RAKING MACHINE OPERATOR asked the pt. if she had needed transportation to medical appointments. She stated if her daughter does not take her she uses transportation under her [employer]. RAKING MACHINE OPERATOR provided the pt. with her name and phone number to call with any needs. RAKING MACHINE OPERATOR will follow-up with her. Brandy Ross [facility] Caustics Loader with [facility] [phone]. Thank You, documented in this encounterCleveland Clinic Foundation03-27-2023 Miscellaneous Notes* Telephone Encounter - Panfilo Oreilly MD - 02/24/2023 1:24 PM EDT Reviewed. Keep appointment as scheduled. * Telephone Encounter - Georgina Samayoa RN - 02/24/2023 1:13 PM EDT Patient called and notified of results and provider instructions. Patient set up appointment on 02/26/2023. Please review and advise, Georigna Samayoa RN * Telephone Encounter - Lula Sarmiento LPN - 02/24/2023 1:09 PM EDT Phoned patient and reviewed provider's message with her. Patient reported the hospital put her on something different. Having difficult time hearing patient and then was disconnected. Will attempt tocall patient back to see what she is taking. * Telephone Encounter - Lula Sarmiento LPN - 02/24/2023 1:08 PM EDT ----- Message from Panfilo Oreilly MD sent at 02/24/2023 11:10 AM EDT ----- Wound culture growing strep and corynebacterium which was sensitive to the clindamycin we prescribed. Continue current regimen and need TCM within in 1 week of discharge. documented in this encounterCleveland Clinic Foundation03-27-2023 Miscellaneous Notes* Telephone Encounter - Panfilo Oreilly MD - 02/24/2023 10:03 AM EDT Reviewed. * Telephone Encounter - Keyonna Gross LPN - 02/24/2023 9:34 AM EDT DONELL: Brandy, Caustics Loader with [facility] called to let you know pt returned home on 02-20-23 from [facility] and has skilled care thru [facility] for wound care management. Keyonna Gross LPN documented in this encounterCleveland Clinic Foundation03-26-2023 Miscellaneous Notes* SN SOC - Zahra Jackson RN - 02/23/2023 12:52 PM EDT SITUATION: Alf SOC visit completed today. Friend and brother also present during today's visit. patient reports the following: Allergies--reviewed Medications--full medication reconciliation completed Falls--None DME-Reviewed and added to chart BACKGROUND: Discharged/Referral from acute care hospital Pertinent referral information or other diagnoses that may affect plan of care: Abscess ASSESSMENT: SN greeted at door by caregiver. Upon entrance patient found in chair Patient appears in no acute distress. Patient lives at home with brother and friend. Home environment: cluttered and has pets: cat. SOC booklet reviewed & completed with patient and consent obtained for Home Care services. Vitals (see flow sheet for details): stable SN findings today: Patient is alert and oriented. VSS lungs are diminished. Harriet has BGT sensor on left arm. States blood sugars have been stable. Changed all wounds as ordered. Patient tolerated well. Patient wears oxygen continuously. Patient also smokes. Rn instructed patient to turn oxygen off and not to smoke in the home due to fire hazards. Patient states when she smokes she goes out side. Aware no smoking on the home. Patient verbalized understanding. SW ordered for community resources. Friend changes wounds when no snv. Pt was issued admission booklet. Instructed pt on calling 911 for all emergencies,24 hr call number for nursing concers, pt bill of rights and pt responsibilities, consent form, emergency preparedness plan. Medicine reconciliation completed. Pt/caregiver was aware and agreeable with SN POC, visit set, and referral to SN PHAM. See intervention summary for education details and skills performed. Plan of care and visit frequency established with patient and plan of care agreed upon. Patient demonstrated a need for further skilled SN services for chronic disease management & education, medication education, wound/skin care and safety. RECOMMENDATION: Visit Frequency: 2w2, 1w7 Need for additional services: Patient agreeable to IRON CARRIER referrals. Additional concerns to be followed up on: NONE Next visit to focus on (be specific): woudn care, DM, oxygen, edema documented in this encounterCleveland Clinic Foundation03-24-2023 History of Present illness Narrative* Marixa Navarro RN - 02/21/2023 3:10 PM EDT TRANSITIONAL CARE MANAGEMENT (TCM) COMMUNITY MONITORING PROGRAM Provider Action/FYI: Navigation Team Please assist with scheduling TCM Hospital discharge follow up. TCM eligible through 03/06. Thank you [facility]- Friday Wound care: L groin wash wound with soap and water or wound cleanser with every dressing change. Wet to dry dressing with normal saline, gauze and abdominal pad to perineum twice daily. Left lower leg - apply adaptic, calcium alginate, gauze to open area, and wrap with kerlix daily.- Friend assists with dressing changes, denies increased redness, swelling, pain, drainage, fever, chills. Pt. Reports doing well. Tolerating diet, denies n/v/d. BG in 100's today, utilizes freestyle bao LOGAN has CPAP, uses it, however reports sometimes falling asleep without it. Utilizes walker, completes adl's independently Reports she is approved for 28 hours of aide services through waiver program however no hours are provided by aide to to staffing shortage, Marepankaj GARCÍA working on this. Pt. Denies new or worsening symptoms or concerns since discharge. Pt. Denies questions or concerns in regards to discharge instructions. SUMMARY: Pt discharged from [facility] on 02/20/23. Admitted for: Cellulitis Contact made with patient: Yes Hi my name is Marixa Navarro RN and I am calling from the [facility] on behalf of your PCP,Panfilo Oreilly MD I understand you were recently [...] like to speak with a social work steamtable worker to help give you support for any [...] provider to ensure you have safely transitioned home.If you are agreeable, I will send your request to a bus company manager who will contact and assist you with that appointment. This will give you an opportunity to ask any questions or address any concerns youmay have with your PCP. Inform the patient that if they have any questions or concerns prior to that appointment, to call their PCP's office right away. ACTION TAKEN: Patient desires an appointment - Routed to [facility] [[id number]] for schedulingtelehealth visit (telephonic, virtual visit, or Facetime) within 7 days of discharge with PCP care team. Indicate hospital follow-up appointment needed within 7 days in Provider/FYI [...] manage (we might recommend a telephone or virtualvisit). For emergency symptoms, proceed to Emergency Department as usual but inform them of cough and fever symptoms TACO if present (or call on the way if possible). ORACIO Education Ordered -: No * Carlos Cline RN - 02/21/2023 9:01 AM EDT TCM Home Visit Referral Source of Stratification: [facility] Hospital Admission Status: Discharged Readmission Risk Score: 25 PAMELA Score: 4 Patient meets program referral criteria: No Patient does not qualify for High Risk TCM Home Visit program due to: Discharged home, does not meet program criteria Carlos Cline RN February 21, 2023 9:01 AM TRANSITIONAL CARE MANAGEMENT (TCM) COMMUNITY MONITORING PROGRAM Provider Action/FYI: Outreach attempt #1 Unable to reach patient. Voicemail has not been set up. Unable to leave message. Will try again later Pt has no upcoming future appts SUMMARY: Pt discharged from [facility] on 02/20/23. Admitted for: Cellulitis SUMMARY OF WHAT HAPPENED WHILE I WAS IN THE HOSPITAL: Ms. Wallace presented to an outside facility with purulent drainage from her wound. WBC was 11, and CT showed left upper thigh thickening and ulceration with small amount of residual subcutaneous gas. She was transferred to [facility] and surgery was consulted. Wound appears to have healed significantly since previously examined by this surgical teamand is with granulation tissue. Ms. Wallace was started on antibiotics for cellulitis and will continue on Bactrim and should continue a 5 day course at discharge. She was seen by the inpatient wound care team and given recommendations for continued wet to dry dressing changes twice daily. Ms. Wallace is stable for discharge to home with continued home health care for wound care. She should follow up with her PCP for continued wound needs. Contact made with patient: No - next outreach attempt will be on next day Outreach ended Carlos Cline RN documented in this encounterCleveland Clinic Foundation03-24-2023 Miscellaneous Notes* Telephone Encounter - Mehrdad Michael RN - 02/21/2023 11:11 AM EDT Orbert from [facility] called and reports they received the orders and demographic sheet. Faxing over last OV note to fax # [phone]. documented in this encounterCleveland Clinic Foundation03-24-2023 Miscellaneous Notes* Telephone Encounter - Panfilo Oreilly MD - 02/21/2023 8:44 AM EDT Yes, will sign. * Telephone Encounter - Geeta Munguia LPN - 02/20/2023 3:40 PM EDT Panfilo Oreilly MD Please advise if you are agreeable to signing and following for C services? Our Clinicians will be sending the Plan of Care to you for review and approval. They will reach out for any appropriate orders required to provide home care services for the patient. We are not able to initiate HHC services without a following provider. Home care clinicians may also obtain orders from [facility] Virtual[facility] Providers Thank you and we would be happy to answer any questions. Geeta Munguia LPN 02/20/2023 3:40 PM documented in this encounterCleveland Clinic Foundation03-24-2023 History of Present illness Narrative* Annie Borges [facility] - 02/21/2023 8:38 AM EDT TRANSITION CARE MANAGEMENT (TCM) PHARMACY CONTACT Provider [...] [facility] on 02/20/23. -Medication review done: Partial medication review completed - per patient preference Patient Concerns: Review and discussion of medications with patient as outlined in medication table below. Source of medication information obtained from Memory. Dispense records from pharmacy also utilized to obtain additional medication fill history. Reviewed bolded medications only per pt preference. Pt reports re maining medications on AVS are accurate. No additional reported medication questions or concerns atthis time. History of Present Illness: The following content has been copied and pasted from patient's discharge summary. If discharge summary unavailable, After Visit Summary or last pertinent inpatient notes are copied and pasted. REASON I WAS IN THE HOSPITAL: cellulitis SUMMARY OF WHAT HAPPENED WHILE I WAS IN THE HOSPITAL: Ms. Wallace presented to an outside facility with purulent drainage from her wound. WBC was 11, and CT showed left upper thigh thickening and ulceration with small amount of residual subcutaneous gas. She was transferred to [facility] and surgery was consulted. Wound appears to have healed significantly since previously examined by this surgical teamand is with granulation tissue. Ms. Wallace was started on antibiotics for cellulitis and will continue on Bactrim and should continue a 5 day course at discharge. She was seen by the inpatient wound care team and given recommendations for continued wet to dry dressing changes twice daily. Ms. Wallace is stable for discharge to home with continued home health care for wound care. She should follow up with her PCP for continued wound needs. " Medication Reconciliation: Legend: Stopped, New, Changed, Added [...] by mouth once daily. blood sugar diagnostic (FREESTYLE PRECISION JONAH STRIPS) test strip To use 4 times daily to monitor glucose. Dx: uncontrolled type II DM, on insulin cholecalciferol, Vitamin D3, (VITAMIN D3) 1,250 mcg (50,000 unit) cap capsule Take 1 capsule by mouth one time a week. For 12 weeks Discontinued: 02/20/2023 1:43 PM Stop per AVS - confirms COMPOUNDED PRESCRIPTION Wedge pillow to be used [...] mouth once daily. flash glucose scanning reader (InsureWorxSTYLE BAO 14 DAY READER) 1 Device four times daily. flash glucose sensor (FREESTYLE BAO 14 DAY SENSOR) kit 1 Each once daily. Use 1 device for up to 14 days to monitor sugars 4 times per day. furosemide (LASIX) 20 mg tablet Take 1 tablet by mouth twice daily. Take BID with 80 mg lasix to equal 100 mg BID Ordered 12/12/22 Confirm dose? Unable to review per pt preference furosemide (LASIX) 40 mg tablet Take 1-2 tablets BID for lower extremity edema Ordered 07/09/22 gabapentin (NEURONTIN) 800 mg tablet TAKE 1 TABLET BY MOUTH THREE TIMES A DAY insulin glargine U-300 conc (TOUJEO MAX U-300 SOLOSTAR) 300 unit/mL (3 mL) inpn Inject 105 Units subcutaneously twice daily. insulin lispro (HUMALOG KWIKPEN INSULIN) 100 unit/mL Inject 50 units plus sliding scale three timesdaily before meals (Sliding scale: 2 units for every 50 points >150; TDD 150 units) Insulin Corea, Disposable, (BD ULTRA-FINE GABINO PEN NEEDLE) 32 gauge x 5/32" Inject 1 Each subcutaneously four times daily. [...] one time a week. This REPLACES Trulicity. sulfamethoxazole-trimethoprim (BACTRIM DS) 800-160 mg per tablet Take 1 tablet by mouth every 12 hours for 10 doses. 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 Wallace was started on antibiotics for cellulitis and will continue on Bactrim and should continue a 5 day course at discharge WALKER ROLLATOR SEAT WITH 6" WHEELS - RED Patient requires large seat Preferred pharmacy: [facility] [id number] - [place] [address] - [address] [facility] [phone] [address] [facility] [address] [facility] [address] - [place] [address] - [address] [facility] [phone] [address] [facility] [address] e [id number] [place] [address] - [address] [facility] - [phone] [address] [facility] [address] [facility] [address] [address] Estimated Creatinine Clearance: 196.2 mL/min (based on SCr of 0.59 mg/dL). Estimated Glomerular Filtration Rate (mL/min/1.73m ) Date Value 02/20/2023 113 eGFR- (no units) Date Value 01/23/2022 >60 Additional follow up: Next 5 Appointments None Interventions Made: Patient education/Medication counseling Pharmacist Recommendations Made None Care Coordination: None at this time Time spent on patient: 30-45 minutes Annie Borges RPh February 21, 2023 8:39 AM documented in this encounterCleveland Clinic Foundation03-23-2023 [facility]03-23-2023 Miscellaneous Notes* Telephone Encounter - Mariam Meredith RN - 02/20/2023 9:52 AM EDT Carolee- [facility]- child day care teacher- returned call and reports she is pursuing an aide through a waiver, which is totally separate from skilled care. Reports ELVIN Stern at [facility], along with the PAINTER SET, will be talking to patient today about placement into a detention facility for wound care short term. Carolee asking pcp office, when you get the discharge summary from [facility], please fax to her at fax # [phone]. * Telephone Encounter - Lula Sarmiento LPN - 02/20/2023 8:19 AM EDT Phoned [facility] and they advised Carolee from [facility] was trying to find an aide that could see patient daily. Magdiel advised they are unable to take patient back. -Phoned Carolee with [facility] and left message for her to return call to see what POC will be since [place] not willing to take patient back. * Telephone Encounter - Sandra Potts LPN - 02/19/2023 12:03 PM EDT Call placed to Carolee at [facility] x2 and both times phone would not ring, no sound. Please try back later. Sandra Potts LPN * Telephone Encounter - Panfilo Oreilly MD - 02/19/2023 11:27 AM EDT Patient is currently admitted for necrotizing infection in her groin. Is this in preparation for her discharge? Typically they set patient up with [facility] before discharge. * Telephone Encounter - Diana Mackenzie LPN - 02/19/2023 10:01 AM EDT Carolee from [facility] calling asking for orders for Home health Aide for the patient. Patient currently has detention with [facility], phone number is [phone]. Can fax order to [phone]. Pending order needs diagnosis. Please advise documented in this encounterCleveland Clinic Foundation03-22-2023 Miscellaneous Notes* Telephone Encounter - Sandra Potts LPN - 02/19/2023 4:14 PM EDT Tried reaching patient, unable to leave message due to not being setup. Sandra Potts LPN * Telephone Encounter - Sandra Potts LPN - 02/19/2023 4:02 PM EDT ----- Message from Panfilo Oreilly MD sent at 02/19/2023 11:07 AM EDT ----- Cholesterol looks good on current regimen. Diabetes improving, but still uncontrolled at 8.4. continue current regimen and will discuss further on follow up. Other labs stable. Her WBC and neutrophils are high which is likely due to her non healing wound in left groin with pus drainage. Looks like she has been admitted for her non healing wound. Will need to f/u within 1 week after discharge this time. documented in this encounterCleveland Clinic Foundation03-21-[address] Ornelas [facility] February 18, 2023 10:57pm Note Date/Time February 18, 2023 5:4 4pm [facility] Medical Records Department [address] [place] [address] Emergency Department Summary 02/18/23 MR#: [id number] Acct: [id number] Name: MACARIO WALLACE Rep #:[id number] : 1975 47 From: Deejay Ornelas MD PCP: Dr. Tino Oreilly MD Status :REG ER Location: ED HPI History of Present Illness Chief Complaint: Abscess Informant: patient Narrative Narrative: Patient presents with worsening abscess. This is a an obese diabetic female who developed abscess in the groin. [facility]. Several days later they went in anddid repeat surgery. She does not recall the name of the physician who did the surgery. She has not seen the individual since about 3 weeks ago. She was on antibiotics back then. She has not been on them since. She has had a visiting nurse see her. Things were healing until this past Friday 4-5 days ago. Since then the pain is increased, the redness is increased, the odor is increased, andthe drainage is increased, patient has had intermittent nausea but never vomited. She has felt hot and cold but never measured a temperature. Her appetite is down. Her sugars are running in the mid 200s but that is her normallevel. She saw her primary physician today who wrote for an unknown antibiotic and told her to go to the nearest emergency department. She presented here. She has not yet contacted her surgeon. [facility] Medical History Abscess Abscess of vulva KERRY (acute kidney injury) Anxiety BiPAP (biphasic positive airway pressure) dependence Chronic diastolic (congestive) heart failure Chronic respiratory failure with hypoxia Contusion of knee, right COPD (chronic obstructive pulmonary disease) Depression Diabetes Dyspnea on exertion Essential hypertension GERD (gastroesophageal reflux disease) Hidradenitis History of left heart catheterization (LHC) (~01/05/19) History of MRSA infection Hyperglycemia due to type 2 diabetes mellitus Hyperlipidemia Hypertension Morbid obesity Necrotizing soft tissue infection Non-healing open wound of left groin NSTEMI (non-ST elevated myocardial infarction) 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 Old myocardial infarction On home oxygen therapy Open wound of vulva with complication Opiate overdose Pulmonary embolism Respiratory failure with hypoxia Restrictive lung disease secondary to obesity Sleep apnea Smoker Soft tissue abscess of inguinal region Tobacco abuse Type 2 diabetes mellitus Home Medications multivit-iron 18 mg-folic acid 400 mcg-calcium 500 mg-minerals tablet 1 ea PO DAILY supplement 03/26/17 [History Last Taken 12/09/22] omeprazole 40 mg capsule,delayed release 40 mg PO DAILY GERD 12/15/18 [History Last Taken 12/09/22] loratadine 10 mg tablet 10 mg PO DAILY PRN Allergies 03/01/20 [History Last Taken 12/09/22] apixaban 5 mg tablet 5 mg PO BID blood thinner 08/20/20 [History Last Taken 12/09/22] diltiazem HCl 120 mg capsule,extended release 24 hr 120 mg PO DAILY heart rate 08/20/20 [History Last Taken 12/09/22] lisinopril 10 mg tablet 10 mg PO DAILY blood pressure 03/26/21 [History Last Taken 12/09/22] metformin 500 mg tablet,extended release 24 hr 2,000 mg PO DAILY diabetes 03/26/21 [History Last Taken 01/15/22] metoprolol succinate 25 mg tablet,extended release 24 hr 25 mg PO DAILY blood pressure 03/26/21 [History Last Taken 12/09/22] atorvastatin 80 mg tablet 100 mg PO QHS Check with primary doctor 02/07/22 [History Last Taken 12/09/22] furosemide 40 mg tablet 40 mg PO BID diuretic 09/22/22 [History Last Taken 12/09/22] ammonium lactate 12 % lotion 1 applic topical TID 30 days #400 grams 09/24/22 [Rx Last Taken 12/08/22] insulin lispro 100 unit/mL subcutaneous pen (Humalog KwikPen (U-100) Insulin) 50unit (0.5 mL) subcut TIDAC #0 mL 09/24/22 [Rx Last Taken 12/09/22] albuterol sulfate 2.5 mg/3 mL (0.083 %) solution for nebulization 2.5 mg inhalation Q4H PRN SOB 12/09/22 [History Last Taken 12/08/22] empagliflozin 10 mg tablet (Jardiance) 10 mg PO DAILY DM 12/09/22 [History Last Taken 12/09/22] fenofibrate nanocrystallized 145 mg tablet 145 mg PO DAILY CHOLESTEROL 12/09/22 [History Last Taken 12/09/22] furosemide 20 mg tablet 20 mg PO PRN PRN Edema 12/09/22 [History Last Taken Unknown] gabapentin 800 mg tablet 800 mg PO TID NERVE PAIN 12/09/22 [History Last Taken 12/09/22] insulin glargine U-300 conc 300 unit/mL (3 mL) subcutaneous pen (Toujeo Max U- 300 SoloStar) 150 unit subcut DAILY DM 12/09/22 [History Last Taken 12/09/22] nicotine (polacrilex) 2 mg buccal mini lozenge 2 mg PO PRN PRN Smoking Mkxxhhrzy40/09/23 [History Last Taken 12/08/22] potassium chloride 20 mEq tablet,extended release 20 meq PO BID Check with primary doctor 12/19/22 [History Last Taken Unknown] insulin degludec 200 unit/mL (3 mL) subcutaneous pen (Tresiba FlexTouch U-200 insulin) 104 unit subcut BID DM 12/24/22 [History Last Taken Unknown] Allergy/AdvReac Type Severity Reaction Status Date / Time cyclobenzaprine HCl Allergy Hives Verified 02/18/23 16:44 [From Flexeril] venlafaxine [From Effexor] AdvReac Severe unknown Verified 02/18/23 16:44 Family History Father CVA (cerebral vascular accident) Heart disease Diabetes Mother Thyroid disorder Surgical History H/O arthroscopic knee surgery History of delivery History of cholecystectomy Social History household members: none Smoking Status: Current some day smoker tobacco type: cigarettes how long ago did patient quit smokin PPD smoker second hand exposure: Yes alcohol intake: never substance use type: does not use caffeine: Yes Type: carbonated beverages Number of servings: 1 and coffee Number of servings: 1 ROS ROS ED Constitutional Constitutional ED: Reports subjective ENT ENT ED: Denies rhinorrhea Cardiovascular Cardiovascular: Denies chest pain Respiratory/Chest Respiratory/Chest: Denies cough Gastrointestinal Gastrointestinal: Reports nausea; Denies abdominal pain or vomiting Genitourinary Genitourinary ED: Denies dysuria Musculoskeletal Musculoskeletal: Reports myalgias Integumentary Reports abscess and rash Neurologic Neurologic: Denies headache(s) Endocrine Endocrinology: Denies polydipsia or polyuria Hematologic/Lymphatic Hematologic/Lymphatic: Reports easy bleeding and easy bruising Allergic/Immunologic Allergic/Immunologic ED: Denies urticaria EXAM Physical Exam Narrative Exam Narrative: Patient is awake alert able to give a good story of events. HEENT shows moist mucous membranes Lungs are clear but examined limited due to size. Heart is mildly tachycardic but sounds regular. Abdomen is obese but no focal tenderness. Note is made of some erythema and slight warmth at the lower 20% or so of the abdomen and this extends from down in mostly her left groin. : There is an open area about 6 x 12 or so centimeters mostly in the left inguinal region. There is erythema around this. The area is tender. It is somewhat malodorous and has moderate discharge. There is diffuse erythema of the skin around this. I do not feel any fluctuant area but exam is difficult. We did do exam with 2 nurses assisting to allow some visualization. We rolled the patient over. There is some erythema onto the buttock area but most of thisseems to wrap more anteriorly. No sign of anal/rectal area involvement. Extremities are not small but there is no noted pitting edema. Neurologically she is awake alert appropriate. Const Vital Signs: 02/18/23 16:42 02/18/23 17:43 02/18/23 18:43 Temperature 98.6 F 98 F 98 F Temperature Source Temporal Temporal Temporal Pulse Rate 114 H 108 H 106 H Respiratory Rate 18 16 16 Blood Pressure 125/54 H 137/58 H 139/53 H Blood Pressure Mean 77 84 81 Pulse Ox 92 92 92 Oxygen Delivery Method Nasal Cannula Nasal Cannula Nasal Cannula Oxygen Flow Rate (L/min) 3 3 3 02/18/23 19:43 02/18/23 20:00 02/18/23 21:00 Temperature 98 F 98.1 F Temperature Source Temporal Temporal Pulse Rate 110 H 103 H Respiratory Rate 14 14 Blood Pressure 126/88 H 134/69 H 119/76 Blood Pressure Mean 100 90 90 Pulse Ox 91 92 Oxygen Delivery Method Nasal Cannula Nasal Cannula Oxygen Flow Rate (L/min) 5 5 MDM MDM MDM Narrative Medical decision making narrative: Patient CBC does show elevated white count slightly low hemoglobin. Platelets are normal. Electrolytes are not showing any marked abnormalities. Glucose was mildly elevated at 180. Lactic acid was normal at 1.6. Liver function showed no process. was negative. CT scan of abdomen and lower extremities showed DJD and improvement of the left thigh skin thickening and ulceration. However, her last film was done prior to surgery. My independent interpretation shows the open area with some stranding in the tissue but no sign of a definable abscess. I think this patient needs to come in the hospital. She has a slight white count subjective fevers, increased pain discharge and now increased erythema across the lower abdominal wall. She has diabetes and significant obesity that are going to make healing more difficult. She has been seen up at [facility] Dr. Johnson. She has had surgery twice there. I discussed the case with her call center. They called evidently surgery and medicine. They recommend transfer to the ER. I discussed the case with the ER physician there. Patient will be transferred. This was discussed with the patient. Lab Data Attestation: I reviewed the patient's lab results. Labs: Laboratory Results - last 24 hr 02/18/23 02/18/23 02/18/23 17:44 17:44 17:44 WBC 13.4 H RBC 3.48 L Hgb 9.3 L Hct 32.6 L MCV 93.7 MCH 26.7 L MCHC 28.5 L RDW Std Deviation 56.1 H RDW Coeff of Darrion 16.3 H Plt Count 293 MPV 9.7 Immature Gran % (Auto) 0.700 Neut % (Auto) 75.7 H Lymph % (Auto) 17.3 L Defiance % (Auto) 4.4 Eos % (Auto) 1.3 Baso % (Auto) 0.6 Absolute Neuts (auto) 10.2 H Absolute Lymphs (auto) 2.32 Nucleated RBC % 0 Sodium 137 Potassium 4.5 Chloride 103 Carbon Dioxide 31.0 Anion Gap 3 L BUN 15 Creatinine 0.82 Estim Creat Clear Calc 77.96 Est GFR (MDRD) Af Amer 97 Est GFR (MDRD) Non-Af 81 BUN/Creatinine Ratio 18.4 Glucose 180 H Lactic Acid 1.6 Calcium 8.3 L Total Bilirubin 0.20 AST 9 L ALT 15 Alkaline Phosphatase 68 Total Protein 7.2 Albumin 2.6 L Globulin 4.6 H Albumin/Globulin Ratio 0.6 L Serum , Qual 02/18/23 17:44 WBC RBC Hgb Hct MCV MCH MCHC RDW Std Deviation RDW Coeff of Darrion Plt Count MPV Immature Gran % (Auto) Neut % (Auto) Lymph % (Auto) Defiance % (Auto) Eos % (Auto) Baso % (Auto) Absolute Neuts (auto) Absolute Lymphs (auto) Nucleated RBC % Sodium Potassium Chloride Carbon Dioxide Anion Gap BUN Creatinine Estim Creat Clear Calc Est GFR (MDRD) Af Amer Est GFR (MDRD) Non-Af BUN/Creatinine Ratio Glucose Lactic Acid Calcium Total Bilirubin AST ALT Alkaline Phosphatase Total Protein Albumin Globulin Albumin/Globulin Ratio Serum , Qual NEGATIVE Radiography Diagnostic Testing: Clinical Impression(s) from Imaging Studies Abdomen/Pelvis CT 02/18/23 17:31 IMPRESSION: Decreased appearance of left upper thigh skin thickening, ulceration, and subcutaneous gas. 3.3 cm left adrenal nodule was present on 07/14/2021 CTA chest, and probably represents an adenoma. No other acute abnormal finding in the abdomen or pelvis. Electronically Signed: Leonides Lakhani MD at 19:51 EDT , Lower Extremity CT 02/18/23 17:31 IMPRESSION: Left hip and knee DJD with small suprapatellar knee joint effusion. Electronically Signed: Leonides Lakhani MD at 19:57 EDT , Lower Extremity CT 02/18/23 17:36 IMPRESSION: Right hip and knee DJD with small suprapatellar knee joint effusion. Electronically Signed: Leonides Lakhani MD at 19:55 EDT , Discharge Plan Triage Chief Complaint: Abscess ED Provider: Deejay Ornelas Dx/Rx/DC Orders Clinical Impression: Postoperative wound cellulitis, Morbid obesity, Diabetes mellitus, Coagulopathy Prescriptions: No Action loratadine 10 mg tablet 10 mg PO DAILY PRN (Reason: Allergies) lisinopril 10 mg tablet 10 mg PO DAILY Label Comments: TAKE 1 TABLET BY MOUTH EVERY DAY metformin 500 mg tablet extended release 24 hr 2,000 mg PO DAILY metoprolol succinate 25 mg tablet extended release 24 hr 25 mg PO DAILY Label Comments: TAKE 1 TABLET BY MOUTH EVERY DAY atorvastatin 80 mg tablet 100 mg PO QHS jgpuokld-fnee-FV-calcium-mins 1 EACH tablet 1 ea PO DAILY Label Comments: vitamin omeprazole 40 MG capsule,delayed release(DR/EC) 40 mg PO DAILY diltiazem HCl 120 MG capsule 120 mg PO DAILY apixaban 5 MG tablet 5 mg PO BID furosemide 40 mg tablet 40 mg PO BID Label Comments: Take 1 tablet by mouth twice daily. insulin lispro [Humalog KwikPen Insulin] 100 unit/mL Insulin Pen 50 unit subcut TIDAC Qty: 0 0RF ammonium lactate 12 % Lotion 1 applic topical TID 30 Days Qty: 400 0RF Protocol: *Topical Application Instructions APPLICATION INSTRUCTIONS: apply to both legs andaffected dry areas of the body albuterol sulfate 2.5 mg /3 mL (0.083 %) solution for nebulization 2.5 mg inhalation Q4H PRN (Reason: SOB) gabapentin 800 mg tablet 800 mg PO TID furosemide 20 mg tablet 20 mg PO PRN PRN (Reason: Edema) fenofibrate nanocrystallized 145 mg tablet 145 mg PO DAILY Jardiance 10 mg tablet 10 mg PO DAILY nicotine (polacrilex) 2 mg mini lozenge 2 mg PO PRN PRN (Reason: Smoking Cessation) Toujeo Max U-300 SoloStar 300 unit/mL (3 mL) insulin pen 150 unit SUBCUT DAILY potassium chloride 20 mEq tablet extended release 20 meq PO BID insulin degludec [Tresiba FlexTouch U-200] 200 unit/mL (3 mL) insulin pen 104 unit SUBCUT BID Label Comments: INJECT 100 UNITS SUBCUTANEOUSLY TWICE DAILY (this replaces levemir) Primary Care Provider: Tino Oreilly Referrals: Tino Oreilly MD [Primary Care Provider] - Disposition Disposition: Acute Care Hospital Discharge Location: [facility] What to do if you have Problems For any increased pain, shortness of breath, bleeding, nausea or vomiting, chestpain, or any unexpected problems, contact your Primary Care Provider. Call [facility] ([phone]) or report to the closest Emergency Room. Call 911 if necessary. 02/18/232256 <Electronically signed by Deejay Ornelas MD> Cosigner Signature (if applicable): CC: Dr. Tino Oreilly MD ~ Signed [facility] Work Phone: [phone]) 598-917403-21-2023 History of Present illness Narrative* Panfilo Oreilly MD - 02/18/2023 11:08 AM EDT Chief Complaint No chief complaint on file. HPI Macario Wallace is a 47 year old female who presents here today for Hospital Discharge Follow up. Accompanied today by daughter and grand daughter. Patient admitted to [facility] from 12/25 to 01/01 and then again from 01/13 to 01/16 for necrotizing soft tissue infection of the left inner thigh. Initial Discharge summary as follows: SUMMARY OF WHAT HAPPENED WHILE I WAS [...] general surgery. Follow up hospitalization summary as follows: SUMMARY OF WHAT HAPPENED WHILE I WAS IN THE HOSPITAL: 47 year old female who was previously admitted on 12/25/2022 for a necrotizing soft [...] stating the drainage continues to increase and is more purulent. On 01/14, Dr. Zack Johnson performed an Incision and drainage of bilateral groins, wet-to-dry packing placed in left incision, iodoform placed in right groin incision x2 (FINDINGS): Two small punctuate indurated lesions on right inner thigh, lanced and irrigated and packed with iodoform Left groin with healthy granulation tissues with few loculations released, wet to dry packing placed. Preliminary wound cultures with gram positive cocci, continued on Zosyn/Diflucan. Purulent [...] Care ordered as pt was active with [facility] and [facility] (prior to admission patient required assistance with personal care and wound care. + PCP , + DME, + RX coverage). Ms. Wallace is stable for discharge on 01/16/2023. She will continue local wound care at home. Preliminary wound cultures noted few staph aureus, will be discharged on 5 days of Bactrim DS. Discussion with Ms. Wallace in regards to concern for possible STI, she reports low risk for such, opted not to be treated phylactically prior to discharge. Ms. Wallace to call S clinic for results if she has not received a call in ~ 1 weeks time. Since discharge, [facility] has been out to her home to manage her stage III pressure sore on outer labia/thigh. Applying medi honey, calcium alginate to wound, then dry sterile dressing, which is being changed daily. Referred to wound care, but they have not been in contact with patient yet. Patient states home health is supposed to be out every other day, but are only coming out once per week due to being short staffed. Medi honey just came in the mail. Home health supposed to be coming out again today and will discuss with them how to apply the Medi honey. States that she is getting a lot of yellow/purulent drainage. Needing to change her dressing more than once per day due to discharge. Has swelling and pain without redness. Denies fever/chills. Blood sugar this morning 167 per patient. Past medical history, appointments, medications, allergies reviewed. Previous Medical History 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/2019 Left, small lesion on CT Anxiety Cholecystitis s/p cholecystectomy Diabetes mellitus without mention of complication Diabetic neuropathy ([facility]) Seeing Neurology Diastolic heart failure ([facility]) GERD (gastroesophageal reflux disease) History of abnormal cervical Pap smear History of tobacco use Hyperlipidemia Insomnia Microalbuminuria Morbid obesity (HCC) Narcotic abuse ([facility]) Non-STEMI (non-ST elevated myocardial infarction) ([facility]) 2/2 respiratory illness LOGAN (obstructive sleep apnea) using CPAP, Dr. Dumont Pulmonary embolism ([facility]) Seasonal allergies Unspecified essential hypertension Previous Surgical History PAST SURGICAL HISTORY Procedure Laterality Date ANALGESIA,EPIDURAL,LABOR & 1994 INCISION & DRAINAGE ABSCESS COMPLICATED/MULTIPLE 04/07/2014 LAPS SURG CHOLECYSTECTOMY W/CHOLANGIOGRAPHY 11/04/2007 PAST SURGICAL [...] on File Prior to Visit Medication Sig omeprazole (PRILOSEC) 40 [...] daily. lisinopril (ZESTRIL, PRINIVIL) 10 mg tablet Take 1 tablet by mouth once daily. fenofibrate nanocrystallized (TRICOR) 145 mg tablet Take 1 tablet by mouth once daily. atorvastatin (LIPITOR) 80 mg tablet Take 1 tablet by mouth once daily. flash glucose sensor (FREESTYLE BAO 14 DAY SENSOR) kit 1 Each once daily. Use 1 device for up to 14 days to monitor sugars 4 times per day. gabapentin (NEURONTIN) 800 mg tablet TAKE 1 TABLET BY MOUTH THREE TIMES A DAY semaglutide (OZEMPIC) 1 mg/dose (4 mg/3 mL) pen Inject 1 mg subcutaneously one time a week. This REPLACES Trulicity. furosemide (LASIX) 20 mg tablet Take 1 tablet by mouth twice daily. Take BID with 80 mg lasix to equal 100 mg BID flash glucose scanning reader (FREESTYLE BAO 14 DAY READER) 1 Device four times daily. blood sugar diagnostic (FREESTYLE PRECISION JONAH STRIPS) test strip To use 4 times daily to monitor glucose. Dx: uncontrolled type II DM, on insulin insulin glargine U-300 conc (TOUJEO MAX U-300 SOLOSTAR) 300 unit/mL (3 mL) inpn Inject 105 Units subcutaneously twice daily. insulin lispro (HUMALOG KWIKPEN INSULIN) 100 unit/mL Inject 50 units plus sliding scale three timesdaily before meals (Sliding scale: 2 units for every 50 points >150; TDD 150 units) albuterol (PROVENTIL) 2.5 mg /3 mL (0.083 %) nebulizer solution Use 3 mL via nebulizer every 2 hours as needed for wheezing/shortness of breath. Use over 5-15minutes. Insulin Corea, Disposable, (BD ULTRA-FINE GABINO PEN NEEDLE) 32 gauge x 5/32" Inject 1 Each subcutaneously four times daily. use with insulin famotidine (PEPCID) 20 mg tablet Take 1 tablet by mouth at bedtime as needed. furosemide (LASIX) 40 mg tablet Take 1-2 tablets BID for lower extremity edema WALKER ROLLATOR SEAT WITH 6" WHEELS - RED Patient requires large seat Lancets lancets Use to check blood sugars four times daily as instructed cholecalciferol, Vitamin D3, (VITAMIN D3) 1,250 mcg (50,000 unit) cap capsule Take 1 capsule by mouth one time a week. For 12 weeks potassium chloride 20 mEq TbER Take 1 tablet by mouth twice daily. multivitamin tablet Take 1 tablet by mouth once daily. Compression Knee Highs KNEE HIGH [...] BP 128/72 Pulse 99 Resp 18 LMP 10/10/2016 SpO2 91% General Appearance: Well appearing, alert, in no acute distress, well-hydrated, well nourished. Seated in wheelchair. On oxygen. Skin: Patient has persistent open wound in her left groin which is about the length of my hand and several cm's deep with purulent discharge. Granulation tissue noted on either side of the wound. Patient does have cellulitis around wound without streaking. Positive for TTP. Lungs: Lungs clear to auscultation. No wheezing, rhonchi, rales.. Heart: RRR without [...] 04/30/2023 URINE ALBUMIN:CREATININE RATIO due on 07/09/2023 ANNUAL PCP TEAM CHRONIC DISEASE VISIT due on 11/08/2023 DIABETIC FOOT EXAM due on 12/25/2023 BP CONTROLLED (<130/80) due on 01/13/2024 DTAP,TDAP,TD(2 - Td or Tdap) due on 07/01/2027 PNEUMOCOCCAL(3 - PPSV23 if available, else PCV20) due on 2042 INFLUENZA Completed HEPATITIS C SCREENING Completed HIV SCREENING Completed ASSESSMENT/PLAN: 1. Abscess of groin, left - ICD9: 682.2, ICD10: L02.214 (primary diagnosis) Patient is s/p I&D with large open wound which does not appear to be healing well. Home health is helping to manage, but is only coming out once per week. She has new purulent drainage and signs of cellulitis without sepsis. Will start clindamycin and try to get her in with the wound care clinic [facility] as I suspect she will need a wound vac and closer follow up. Discussed if she is not able to get in quickly and infection symptoms are not improving, she may need to return to the ED for further treatment and wound vac placement. Continue dressing changes at least daily at home. Red flags forre-assessment reviewed with patient in detail. - ABSCESS AND WOUND CULTURE WITH GRAM STAIN - CLINDAMYCIN HCL 300 MG CAPSULE 2. Non-healing open wound of left groin, initial encounter - ICD9: 879.5, ICD10: S31.104A See above. - ABSCESS AND WOUND CULTURE WITH GRAM STAIN - CLINDAMYCIN HCL 300 MG CAPSULE - CBC + DIFF - COMP METABOLIC PANEL 3. Necrotizing soft tissue infection - ICD9: 729.99, ICD10: M79.89 See above 4. Cellulitis of skin - ICD9: 682.9, ICD10: L03.90 - Begin treatment with Clindamycin - Check labs CBC with Diff - No lymphangetic streaking, this was defined for patient to watch for and to seek medical care immediately if appears 5. Type 2 diabetes mellitus with diabetic polyneuropathy, with long-term current use of insulin (HCC) - ICD9: 250.60, 357.2, V58.67, ICD10: E11.42, Z79.4 Due to recheck her A1c. Glucose not elevated in DKA range this morning. Continue to check 4 times daily. - LIPID PANEL, NONFASTING - HGB A1C I spent a total of 40 minutes on the date of the service which included preparing to see the patient, [id number] patient care, completing clinical documentation, obtaining and/or reviewing separately obtained history, performing a medically appropriate examination, counseling and educating the pat ient/family/caregiver, and ordering medications, tests, or procedures. Panfilo Oreilly MD documented in this encounterCleveland Clinic Foundation03-10-2023 Miscellaneous Notes* Telephone Encounter - Sandra Potts LPN - 02/07/2023 2:45 PM EST Patient notified. Voices understanding. Sandra Potts LPN * Telephone Encounter - Paniflo Oreilly MD - 02/07/2023 11:44 AM EST Referral for wound care placed to help with this wound. Please notify patient. Keep f/u as scheduled. * Telephone Encounter - Mariam Meredith RN - 02/07/2023 10:50 AM EST Shaneka-nurse- [facility]- returned call and given provider's message with verbalized understanding. Shaneka agreeable to fax order to pcp, but for now will take verbal, so it will be a couple days before she faxes it, as she is out in the field today. Reports patient is not seeing wound care. * Telephone Encounter - Tri Sorensen RN - 02/07/2023 10:21 AM EST [facility] to call PCP office for message below. Tri Sorensen RN * Telephone Encounter - Panfilo Oreilly MD - 02/07/2023 8:50 AM EST Agree with wound care recommendations. If they fax and order I will sign it. Is patient following up with wound care now? * Telephone Encounter - Mariam Meredith RN - 02/07/2023 8:35 AM EST Shaneka- nurse- [facility], reports patient has a stage II pressure sore on outer labia/inner thigh/groin area. Asking for wound dressing orders. Shaneka recommends medi honey, calcium alginate to wound, then dry sterile dressing, change daily. Patient would have to change, on days nurses do not come. Asking provider to write order and fax order to fax # [phone]. documented in this encounterCleveland Clinic Foundation03-07-2023 Miscellaneous Notes* Telephone Encounter - Tri Sorensen RN - 02/04/2023 10:28 AM EST Josie, a [facility] nurse with [facility] calling to request Physical Therapy evaluation order for patient. States patient recently moved into a trailer and is having some difficulty getting around and also difficulty with endurance. Reports patient is on oxygen. Please call Josie back at [phone]. Thank you. documented in this encounterCleveland Clinic Foundation03-06-2023 History of Present illness Narrative* Gayle Fry - 02/03/2023 2:30 PM EST Per [facility] Eligibility report: patient meets [facility] criteria: MV >= 72 hours MICU stay. Discharge date prior to 01/06/2023 (01/30/2023 dashboard update); not contacted/enrolled in the [facility] Program for this 12/25-01/01/2023 [place] admission. [facility] Enrollment Status [facility] Call Attempt None Enrolled in [facility] Program? No - Other documented in this [facility]03-06-2023 Miscellaneous Notes* Telephone Encounter - Irena Bland LPN - 02/03/2023 10:17 AM EST Last appt: 11/08/22 - Next scheduled appt: 02/05/23 Patient has been identified by name and date of : Yes Requested Prescriptions Pending Prescriptions Disp Refills omeprazole (PRILOSEC) 40 mg capsule 90 capsule 1 Sig: Take 1 capsule by mouth once daily. RX INSTRUCTIONS: Pharmacy initiated this request. No need to notify patient. Irena Bland LPN documented in this [facility]03-06-2023 Miscellaneous Notes* Telephone Encounter - Lula Sarmiento LPN - 02/03/2023 8:59 AM EST Phoned patient to reschedule 40 min Hosp follow up appt as provider unavailable today. Patient's VMnot set up and unable to leave a message. Please be sure to reschedule for 40 min visit. documented in this encounterCleveland Clinic Foundation03-02-2023 Miscellaneous Notes* Telephone Encounter - Lula Sarmiento LPN - 01/30/2023 1:56 PM EST Phoned patient and she is able to come in 02/03/23 at 1120a for 40 min. Scheduling made changes. * Telephone Encounter - Lula Sarmiento LPN - 01/30/2023 11:04 AM EST Phoned patient to see about rescheduling her 02/03/23 appt to a 40 min slot. Patient was initially scheduled for 40 and was rescheduled to a 20 min slot. documented in this encounterCleveland Clinic Foundation02-28-2023 History of Present illness Narrative* Raquel Payne RN - 01/28/2023 2:49 PM EST TRANSITION CARE MANAGEMENT (TCM) FOLLOW-UP NOTE Provider Action/FYI Called for TCM. No answer at this time. Voicemail box not set up, unable to leave message. PCP 01/24 cancelled- rescheduled to 02/03 Patient identified by name and date of : NO- no answer Summary: Pt discharged from [facility] on 01/16/23. Admitted for: Purulent drainage from wounds. Concerns: No answer, unable to leave message Traffic Chief plan for next outreach: Will follow up next week [employer] Education Ordered -: No Signature Raquel Payne RN January 28, 2023 documented in this encounterCleveland [id number] Miscellaneous Notes* Telephone Encounter - Sandra Potts LPN - 01/21/2023 10:36 AM EST Zhane notified of providers message. Sandra Potts LPN * Telephone Encounter - Panfilo Oreilly MD - 01/21/2023 10:00 AM EST OK to resume detention. Keep f/u appointment as scheduled. * Telephone Encounter - Georgina Samayoa RN - 01/21/2023 9:50 AM EST Zhane from [facility] calls to report that patient discharged from hospital on 01/16/2023. Zhane asking if it is ok to resume detention services with patient tomorrow 01/22/2023. Please review and advise, Georgina Samayoa RN documented in this encounterCleveland Clinic Foundation02-20-2023 Miscellaneous Notes* Telephone Encounter - Loretta Peres LPN - 01/20/2023 4:10 PM EST Pt given message, states she can't take ibuprofen and will continue with the tylenol. Margarita TOWNSEND * Telephone Encounter - Loretta Peres LPN - 01/20/2023 3:36 PM EST I&D tay groin abscesses on 11/13/23- pt requesting refill on oxycodone for dressing changes. Uses pharmacy listed in chart. Margarita TOWNSEND documented in this encounterCleveland Clinic Foundation02-17-2023 History of Present illness Narrative* Brissa Kilpatrick, [facility] - 01/17/2023 12:40 PM EST TRANSITION CARE MANAGEMENT (TCM) PHARMACY CONTACT [...] [facility] on 01/16/23. -Medication review done: Partial medication review completed [...] 47 year old female who was previously admitted on 12/25/2022 for a necrotizing soft tissue infectionon her left inner thigh. Patient was taken [...] stating the drainage continues to increase and is more purulent. On 01/14, Dr. Zack Johnson performed an Incision and drainage of bilateral groins, wet-to-dry packing placed in left incision, iodoform placed in right groin incision x2 (FINDINGS): Two small punctuate indurated lesions on right inner thigh, lanced and irrigated and packed with iodoform Left groin with healthy granulation tissues with few loculations released, wet to dry packing placed. Preliminary wound cultures with gram positive cocci, continued on Zosyn/Diflucan. Purulent [...] Care ordered as pt was active with [facility] and [facility] (prior to admission patient required assistance with personal care and wound care. + PCP , + DME, + RX coverage). Ms. Wallace is stable for discharge on 01/16/2023. She will continue local wound care at home. Preliminary wound cultures noted few staph aureus, will be discharged on 5 days of Bactrim DS. Discussion with Ms. Wallace in regards to concern for possible STI, she reports low risk for such, opted not to be treated phylactically prior to discharge. Ms. Wallace to call EGS clinic for results if she has not received a call in ~ 1 weeks time Transitions of Care Critical Issues: LAB MONITORING NEEDED: Final wound culturs; Gonorrhea/ Chalmydia/ Bacterial vaginosis screening LABS AND PROCEDURES PENDING AT DISCHARGE: " Medication Reconciliation: Legend: Stopped, New, Changed, Added [...] by mouth once daily. blood sugar diagnostic (FREESTYLE PRECISION JONAH STRIPS) test strip To use 4 times [...] once daily. flash glucose scanning reader (FREESTYLE BAO 14 DAY READER) 1 Device four times daily. flash glucose sensor (FREESTYLE BAO 14 DAY SENSOR) kit 1 Each once [...] extremity edema gabapentin (NEURONTIN) 800 mg tablet TAKE 1 TABLET BY MOUTH THREE TIMES A DAY insulin glargine U-300 conc (TOUJEO MAX U-300 SOLOSTAR) 300 unit/mL (3 mL) inpn Inject 105 Units subcutaneously twice daily. insulin lispro (HUMALOG KWIKPEN INSULIN) 100 unit/mL Inject 50 units plus sliding scale three timesdaily before meals (Sliding scale: 2 units for every 50 points >150; TDD 150 units) Hemoglobin A1C (%) Date Value 11/11/2022 10.1 12/12/2021 10.0 Insulin Corea, Disposable, (BD ULTRA-FINE GABINO PEN NEEDLE) 32 gauge x 5/32" Inject 1 Each subcutaneously four times daily. [...] days. Taking as prescribed without any issues [facility] - Dispensed potassium chloride 20 mEq TbER Take 1 tablet by mouth twice daily. semaglutide (OZEMPIC) 1 mg/dose (4 mg/3 mL) pen Inject 1 mg subcutaneously one time a week. This REPLACES Trulicity. Shower Chair with Back once daily. Use as directed sulfamethoxazole-trimethoprim (BACTRIM DS) 800-160 mg per tablet Take 1 tablet by mouth twice dailyfor 5 days. Taking as prescribed without any issues [facility] - Dispensed WALKER ROLLATOR SEAT WITH 6" WHEELS - RED Patient requires large seat Preferred pharmacy: [facility] - [place] [address] [address] [facility] [phone] [address] [facility] [address] [place] [phone] - [address] [place] [phone] [place] [phone] [id number] [place] [address] - [address] [place] [id number] [place] [phone] [facility] [address] [place] [address] Estimated Creatinine Clearance: 124.1 mL/min (based on SCr of 0.95 mg/dL). Estimated Glomerular Filtration Rate (mL/min/1.73m ) Date Value 01/16/2023 75 eGFR- (no units) Date Value 01/23/2022 >60 Additional follow up: Next 5 Appointments None Interventions Made: None Pharmacist Recommendations Made None Care Coordination: None at this time Time spent on patient: 15-30 minutes Brissa Kilpatrick [facility] January 17, 2023 12:59 PM documented in this encounterCleveland Clinic Foundation02-16-2023 Miscellaneous Notes* Telephone Encounter - Panfilo Oreilly MD - 01/16/2023 9:41 AM EST Reviewed and agree. * Telephone Encounter - Georgina Samayoa RN - 01/15/2023 4:48 PM EST Carolee from [facility] calls and states that patient was directly admitted by her surgeon after appointment on 01/13/2023. Patient currently is in [facility]. When patient gets discharged askingfor discharge paperwork to me faxed to [phone]. Georgina Samayoa RN documented in this encounterCleveland Clinic Foundation02-16-2023 [facility]02-15-[facility] Miscellaneous Notes* Telephone Encounter - Lula Sarmiento LPN - 01/14/2023 2:13 PM EST Patient did not show up for appointment nor did she call to cancel or reschedule. No Show letter sent to patient. * Telephone Encounter - Lula Sarmiento LPN - 01/14/2023 11:10 AM EST Patient has 11a appt and already 10 min late attempted to reach her to offer 40 min afternoon appt for Hosp follow up. No answer and VM not set up unable to leave message. documented in this encounterCleveland Clinic Foundation02-14-2023 [facility]02-14-20[facility] History of Present illness Narrative* Mimi Crowley RN - 01/14/2023 8:16 AM EST TRANSITION CARE MANAGEMENT (TCM) FOLLOW-UP NOTE Provider Action/FYI Chart reviewed. Pt readmitted to [facility] 01/13/23 for perineal wound infection. Name removed from Care Team d/t readmission. Signature Mimi Crowley RN January 14, 2023 documented in this encounterCleveland Clinic Foundation02-13-2023 [facility] History of Past illness Narrative* Problem Noted Date Resolved Date Necrotizing fasciitis 01/13/2023 01/16/2023 Overview: Pt did not have necrotizing fasciitis during this current hospitalization. Acute cholecystitis 11/06/2007 11/20/2021 documented as of this encounter (statuses as of 01/16/2023) [facility]02-13-2023 History of Past illness Narrative* Problem Noted Date Resolved Date Necrotizing fasciitis 01/13/2023 01/16/2023 Overview: Pt did not have necrotizing fasciitis during this current hospitalization. Acute cholecystitis 11/06/2007 11/20/2021 documented as of this encounter (statuses as of 01/17/2023) [facility]02-13-2023 History of Past illness Narrative* Problem Noted Date Resolved Date Necrotizing fasciitis 01/13/2023 01/16/2023 Overview: Pt did not have necrotizing fasciitis during this current hospitalization. Acute cholecystitis 11/06/2007 11/20/2021 documented as of this encounter (statuses as of 01/21/2023) [address]23 History of Past illness Narrative* Problem Noted Date Resolved Date Necrotizing fasciitis 01/13/2023 01/16/2023 Overview: Pt did not have necrotizing fasciitis during this current hospitalization. Acute cholecystitis 11/06/2007 11/20/2021 documented as of this encounter (statuses as of 01/21/2023) [address]23 History of Past illness Narrative* Problem Noted Date Resolved Date Necrotizing fasciitis 01/13/2023 01/16/2023 Overview: Pt did not have necrotizing fasciitis during this current hospitalization. Acute cholecystitis 11/06/2007 11/20/2021 documented as of this encounter (statuses as of 01/28/2023) [address]23 History of Past illness Narrative* Problem Noted Date Resolved Date Necrotizing fasciitis 01/13/2023 01/16/2023 Overview: Pt did not have necrotizing fasciitis during this current hospitalization. Acute cholecystitis 11/06/2007 11/20/2021 documented as of this encounter (statuses as of 01/30/2023) [address]23 History of Past illness Narrative* Problem Noted Date Resolved Date Necrotizing fasciitis 01/13/2023 01/16/2023 Overview: Pt did not have necrotizing fasciitis during this current hospitalization. Acute cholecystitis 11/06/2007 11/20/2021 documented as of this encounter (statuses as of 02/03/2023) [address]23 History of Past illness Narrative* Problem Noted Date Resolved Date Necrotizing fasciitis 01/13/2023 01/16/2023 Overview: Pt did not have necrotizing fasciitis during this current hospitalization. Acute cholecystitis 11/06/2007 11/20/2021 documented as of this encounter (statuses as of 02/03/2023) [address] History of Past illness Narrative* Problem Noted Date Resolved Date Necrotizing fasciitis 01/13/2023 01/16/2023 Overview: Pt did not have necrotizing fasciitis during this current hospitalization. Acute cholecystitis 11/06/2007 11/20/2021 documented as of this encounter (statuses as of 02/20/2023) [address]23 History of Past illness Narrative* Problem Noted Date Resolved Date Necrotizing fasciitis 01/13/2023 01/16/2023 Overview: Pt did not have necrotizing fasciitis during this current hospitalization. Acute cholecystitis 11/06/2007 11/20/2021 documented as of this encounter (statuses as of 02/21/2023) [address] History of Past illness Narrative* Problem Noted Date Resolved Date Necrotizing fasciitis 01/13/2023 01/16/2023 Overview: Pt did not have necrotizing fasciitis during this current hospitalization. Acute cholecystitis 11/06/2007 11/20/2021 documented as of this encounter (statuses as of 02/21/2023) [address]23 History of Past illness Narrative* Problem Noted Date Resolved Date Necrotizing fasciitis 01/13/2023 01/16/2023 Overview: Pt did not have necrotizing fasciitis during this current hospitalization. Acute cholecystitis 11/06/2007 11/20/2021 documented as of this encounter (statuses as of 02/21/2023) [address]23 History of Past illness Narrative* Problem Noted Date Resolved Date Necrotizing fasciitis 01/13/2023 01/16/2023 Overview: Pt did not have necrotizing fasciitis during this current hospitalization. Acute cholecystitis 11/06/2007 11/20/2021 documented as of this encounter (statuses as of 02/24/2023) [address]23 History of Past illness Narrative* Problem Noted Date Resolved Date Necrotizing fasciitis 01/13/2023 01/16/2023 Overview: Pt did not have necrotizing fasciitis during this current hospitalization. Acute cholecystitis 11/06/2007 11/20/2021 documented as of this encounter (statuses as of 02/25/2023) [place] [address] History of Past illness Narrative* Problem Noted Date Resolved Date Necrotizing fasciitis 01/13/2023 01/16/2023 Overview: Pt did not have necrotizing fasciitis during this current hospitalization. Acute cholecystitis 11/06/2007 11/20/2021 documented as of this encounter (statuses as of 02/25/2023) [address] History of Past illness Narrative* Problem Noted Date Resolved Date Necrotizing fasciitis 01/13/2023 01/16/2023 Overview: Pt did not have necrotizing fasciitis during this current hospitalization. Acute cholecystitis 11/06/2007 11/20/2021 documented as of this encounter (statuses as of 02/26/2023) [address]23 History of Past illness Narrative* Problem Noted Date Resolved Date Necrotizing fasciitis 01/13/2023 01/16/2023 Overview: Pt did not have necrotizing fasciitis during this current hospitalization. Acute cholecystitis 11/06/2007 11/20/2021 documented as of this encounter (statuses as of 02/26/2023) [address]23 History of Past illness Narrative* Problem Noted Date Resolved Date Necrotizing fasciitis 01/13/2023 01/16/2023 Overview: Pt did not have necrotizing fasciitis during this current hospitalization. Acute cholecystitis 11/06/2007 11/20/2021 documented as of this encounter (statuses as of 03/03/2023) [address]23 History of Past illness Narrative* Problem Noted Date Resolved Date Necrotizing fasciitis 01/13/2023 01/16/2023 Overview: Pt did not have necrotizing fasciitis during this current hospitalization. Acute cholecystitis 11/06/2007 11/20/2021 documented as of this encounter (statuses as of 03/03/2023) [address]23 History of Past illness Narrative* Problem Noted Date Resolved Date Necrotizing fasciitis 01/13/2023 01/16/2023 Overview: Pt did not have necrotizing fasciitis during this current hospitalization. Acute cholecystitis 11/06/2007 11/20/2021 documented as of this encounter (statuses as of 03/04/2023) [address]23 History of Past illness Narrative* Problem Noted Date Resolved Date Necrotizing fasciitis 01/13/2023 01/16/2023 Overview: Pt did not have necrotizing fasciitis during this current hospitalization. Acute cholecystitis 11/06/2007 11/20/2021 documented as of this encounter (statuses as of 03/05/2023) [facility] of Past illness Narrative* Problem Noted Date Resolved Date Necrotizing fasciitis 01/13/2023 01/16/2023 Overview: Pt did not have necrotizing fasciitis during this current hospitalization. Acute cholecystitis 11/06/2007 11/20/2021 documented as of this encounter (statuses as of 03/05/2023) [address]23 History of Past illness Narrative* Problem Noted Date Resolved Date Necrotizing fasciitis 01/13/2023 01/16/2023 Overview: Pt did not have necrotizing fasciitis during this current hospitalization. Acute cholecystitis 11/06/2007 11/20/2021 documented as of this encounter (statuses as of 03/05/2023) [address]23 History of Past illness Narrative* Problem Noted Date Resolved Date Necrotizing fasciitis 01/13/2023 01/16/2023 Overview: Pt did not have necrotizing fasciitis during this current hospitalization. Acute cholecystitis 11/06/2007 11/20/2021 documented as of this encounter (statuses as of 03/07/2023) [address]23 History of Past illness Narrative* Problem Noted Date Resolved Date Necrotizing fasciitis 01/13/2023 01/16/2023 Overview: Pt did not have necrotizing fasciitis during this current hospitalization. Acute cholecystitis 11/06/2007 11/20/2021 documented as of this encounter (statuses as of 03/07/2023) [address]23 History of Past illness Narrative* Problem Noted Date Resolved Date Necrotizing fasciitis 01/13/2023 01/16/2023 Overview: Pt did not have necrotizing fasciitis during this current hospitalization. Acute cholecystitis 11/06/2007 11/20/2021 documented as of this encounter (statuses as of 03/08/2023) [facility] of Past illness Narrative* Problem Noted Date Resolved Date Necrotizing fasciitis 01/13/2023 01/16/2023 Overview: Pt did not have necrotizing fasciitis during this current hospitalization. Acute cholecystitis 11/06/2007 11/20/2021 documented as of this encounter (statuses as of 03/08/2023) [address]23 History of Past illness Narrative* Problem Noted Date Resolved Date Necrotizing fasciitis 01/13/2023 01/16/2023 Overview: Pt did not have necrotizing fasciitis during this current hospitalization. Acute cholecystitis 11/06/2007 11/20/2021 documented as of this encounter (statuses as of 03/09/2023) [address]23 History of Past illness Narrative* Problem Noted Date Resolved Date Necrotizing fasciitis 01/13/2023 01/16/2023 Overview: Pt did not have necrotizing fasciitis during this current hospitalization. Acute cholecystitis 11/06/2007 11/20/2021 documented as of this encounter (statuses as of 03/11/2023) [address]23 History of Past illness Narrative* Problem Noted Date Resolved Date Necrotizing fasciitis 01/13/2023 01/16/2023 Overview: Pt did not have necrotizing fasciitis during this current hospitalization. Acute cholecystitis 11/06/2007 11/20/2021 documented as of this encounter (statuses as of 03/12/2023) [address]-2023 History of Past illness Narrative* Problem Noted Date Resolved Date Necrotizing fasciitis 01/13/2023 01/16/2023 Overview: Pt did not have necrotizing fasciitis during this current hospitalization. Acute cholecystitis 11/06/2007 11/20/2021 documented as of this encounter (statuses as of 03/13/2023) [address]13-2023 History of Past illness Narrative* Problem Noted Date Resolved Date Necrotizing fasciitis 01/13/2023 01/16/2023 Overview: Pt did not have necrotizing fasciitis during this current hospitalization. Acute cholecystitis 11/06/2007 11/20/2021 documented as of this encounter (statuses as of 03/13/2023) [address]13-2023 History of Past illness Narrative* Problem Noted Date Resolved Date Necrotizing fasciitis 01/13/2023 01/16/2023 Overview: Pt did not have necrotizing fasciitis during this current hospitalization. Acute cholecystitis 11/06/2007 11/20/2021 documented as of this encounter (statuses as of 03/15/2023) [address]23 History of Past illness Narrative* Problem Noted Date Resolved Date Necrotizing fasciitis 01/13/2023 01/16/2023 Overview: Pt did not have necrotizing fasciitis during this current hospitalization. Acute cholecystitis 11/06/2007 11/20/2021 documented as of this encounter (statuses as of 03/20/2023) [address]13-2023 History of Past illness Narrative* Problem Noted Date Resolved Date Necrotizing fasciitis 01/13/2023 01/16/2023 Overview: Pt did not have necrotizing fasciitis during this current hospitalization. Acute cholecystitis 11/06/2007 11/20/2021 documented as of this encounter (statuses as of 03/23/2023) [address]13-2023 History of Past illness Narrative* Problem Noted Date Resolved Date Necrotizing fasciitis 01/13/2023 01/16/2023 Overview: Pt did not have necrotizing fasciitis during this current hospitalization. Acute cholecystitis 11/06/2007 11/20/2021 documented as of this encounter (statuses as of 03/27/2023) [address]13-2023 History of Past illness Narrative* Problem Noted Date Resolved Date Necrotizing fasciitis 01/13/2023 01/16/2023 Overview: Pt did not have necrotizing fasciitis during this current hospitalization. Acute cholecystitis 11/06/2007 11/20/2021 documented as of this encounter (statuses as of 03/27/2023) [address]13-2023 History of Past illness Narrative* Problem Noted Date Resolved Date Necrotizing fasciitis 01/13/2023 01/16/2023 Overview: Pt did not have necrotizing fasciitis during this current hospitalization. Acute cholecystitis 11/06/2007 11/20/2021 documented as of this encounter (statuses as of 03/27/2023) [address]-2023 History of Past illness Narrative* Problem Noted Date Resolved Date Necrotizing fasciitis 01/13/2023 01/16/2023 Overview: Pt did not have necrotizing fasciitis during this current hospitalization. Acute cholecystitis 11/06/2007 11/20/2021 documented as of this encounter (statuses as of 03/28/2023) [address]13-2023 History of Past illness Narrative* Problem Noted Date Resolved Date Necrotizing fasciitis 01/13/2023 01/16/2023 Overview: Pt did not have necrotizing fasciitis during this current hospitalization. Acute cholecystitis 11/06/2007 11/20/2021 documented as of this encounter (statuses as of 04/03/2023) [address]13-2023 History of Past illness Narrative* Problem Noted Date Resolved Date Necrotizing fasciitis 01/13/2023 01/16/2023 Overview: Pt did not have necrotizing fasciitis during this current hospitalization. Acute cholecystitis 11/06/2007 11/20/2021 documented as of this encounter (statuses as of 04/10/2023) [address]13-2023 History of Past illness Narrative* Problem Noted Date Resolved Date Necrotizing fasciitis 01/13/2023 01/16/2023 Overview: Pt did not have necrotizing fasciitis during this current hospitalization. Acute cholecystitis 11/06/2007 11/20/2021 documented as of this encounter (statuses as of 04/26/2023) [address]13-2023 History of Past illness Narrative* Problem Noted Date Resolved Date Necrotizing fasciitis 01/13/2023 01/16/2023 Overview: Pt did not have necrotizing fasciitis during this current hospitalization. Acute cholecystitis 11/06/2007 11/20/2021 documented as of this encounter (statuses as of 04/26/2023) [address]13-2023 History of Past illness Narrative* Problem Noted Date Resolved Date Necrotizing fasciitis 01/13/2023 01/16/2023 Overview: Pt did not have necrotizing fasciitis during this current hospitalization. Acute cholecystitis 11/06/2007 11/20/2021 documented as of this encounter (statuses as of 04/29/2023) [address]2023 History of Past illness Narrative* Problem Noted Date Resolved Date Necrotizing fasciitis 01/13/2023 01/16/2023 Overview: Pt did not have necrotizing fasciitis during this current hospitalization. Acute cholecystitis 11/06/2007 11/20/2021 documented as of this encounter (statuses as of 04/29/2023) [address]2023 History of Past illness Narrative* Problem Noted Date Resolved Date Necrotizing fasciitis 01/13/2023 01/16/2023 Overview: Pt did not have necrotizing fasciitis during this current hospitalization. Acute cholecystitis 11/06/2007 11/20/2021 documented as of this encounter (statuses as of 05/01/2023) [address]2023 History of Past illness Narrative* Problem Noted Date Resolved Date Necrotizing fasciitis 01/13/2023 01/16/2023 Overview: Pt did not have necrotizing fasciitis during this current hospitalization. Acute cholecystitis 11/06/2007 11/20/2021 documented as of this encounter (statuses as of 05/01/2023) [place] [address] History of Past illness Narrative* Problem Noted Date Resolved Date Necrotizing fasciitis 01/13/2023 01/16/2023 Overview: Pt did not have necrotizing fasciitis during this current hospitalization. Acute cholecystitis 11/06/2007 11/20/2021 documented as of this encounter (statuses as of 05/02/2023) [address]2023 History of Past illness Narrative* Problem Noted Date Resolved Date Necrotizing fasciitis 01/13/2023 01/16/2023 Overview: Pt did not have necrotizing fasciitis during this current hospitalization. Acute cholecystitis 11/06/2007 11/20/2021 documented as of this encounter (statuses as of 05/02/2023) [address]13-2023 History of Past illness Narrative* Problem Noted Date Resolved Date Necrotizing fasciitis 01/13/2023 01/16/2023 Overview: Pt did not have necrotizing fasciitis during this current hospitalization. Acute cholecystitis 11/06/2007 11/20/2021 documented as of this encounter (statuses as of 05/05/2023) [address]13-2023 History of Past illness Narrative* Problem Noted Date Resolved Date Necrotizing fasciitis 01/13/2023 01/16/2023 Overview: Pt did not have necrotizing fasciitis during this current hospitalization. Sepsis 12/25/2022 05/09/2023 Acute cholecystitis 11/06/2007 11/20/2021 documented as of this encounter (statuses as of 05/15/2023) [address]13-2023 History of Past illness Narrative* Problem Noted Date Resolved Date Necrotizing fasciitis 01/13/2023 01/16/2023 Overview: Pt did not have necrotizing fasciitis during this current hospitalization. Sepsis 12/25/2022 05/09/2023 Acute cholecystitis 11/06/2007 11/20/2021 documented as of this encounter (statuses as of 05/23/2023) [address]2023 History of Past illness Narrative* Problem Noted Date Resolved Date Necrotizing fasciitis 01/13/2023 01/16/2023 Overview: Pt did not have necrotizing fasciitis during this current hospitalization. Sepsis 12/25/2022 05/09/2023 Acute cholecystitis 11/06/2007 11/20/2021 documented as of this encounter (statuses as of 05/23/2023) [address]13-2023 History of Past illness Narrative* Problem Noted Date Resolved Date Necrotizing fasciitis 01/13/2023 01/16/2023 Overview: Pt did not have necrotizing fasciitis during this current hospitalization. Sepsis 12/25/2022 05/09/2023 Acute cholecystitis 11/06/2007 11/20/2021 documented as of this encounter (statuses as of 05/29/2023) [address]13-2023 History of Past illness Narrative* Problem Noted Date Resolved Date Necrotizing fasciitis 01/13/2023 01/16/2023 Overview: Pt did not have necrotizing fasciitis during this current hospitalization. Sepsis 12/25/2022 05/09/2023 Acute cholecystitis 11/06/2007 11/20/2021 documented as of this encounter (statuses as of 06/06/2023) [address]13-2023 History of Past illness Narrative* Problem Noted Date Diagnosed Date Resolved Date Necrotizing fasciitis 01/13/20232022 Overview: Pt did not have necrotizing fasciitis during this current hospitalization. Sepsis 12/25/2022 05/09/2023 Acute cholecystitis 11/06/2007 11/20/20 21 documented as of this encounter (statuses as of 06/25/2023) [address]13-2023 History of Past illness Narrative* Problem Noted Date Diagnosed Date Resolved Date Necrotizing fasciitis 01/13/20232022 Overview: Pt did not have necrotizing fasciitis during this current hospitalization. Sepsis 12/25/2022 05/09/2023 Acute cholecystitis 11/06/2007 11/20/20 21 documented as of this encounter (statuses as of 07/09/2023) [address]13-2023 History of Past illness Narrative* Problem Noted Date Diagnosed Date Resolved Date Necrotizing fasciitis 01/13/20232022 Overview: Pt did not have necrotizing fasciitis during this current hospitalization. Sepsis 12/25/2022 05/09/2023 Acute cholecystitis 11/06/2007 11/20/20 21 documented as of this encounter (statuses as of 07/09/2023) [address]13-2023 History of Past illness Narrative* Problem Noted Date Diagnosed Date Resolved Date Necrotizing fasciitis 01/13/20232022 Overview: Pt did not have necrotizing fasciitis during this current hospitalization. Sepsis 12/25/2022 05/09/2023 Acute cholecystitis 11/06/2007 11/20/20 21 documented as of this encounter (statuses as of 07/10/2023) [address]13-2023 History of Past illness Narrative* Problem Noted Date Diagnosed Date Resolved Date Necrotizing fasciitis 01/13/20232022 Overview: Pt did not have necrotizing fasciitis during this current hospitalization. Sepsis 12/25/2022 05/09/2023 Acute cholecystitis 11/06/2007 11/20/20 21 documented as of this encounter (statuses as of 07/18/2023) [address]2023 History of Past illness Narrative* Problem Noted Date Diagnosed Date Resolved Date Necrotizing fasciitis 01/13/20232022 Overview: Pt did not have necrotizing fasciitis during this current hospitalization. Sepsis 12/25/2022 05/09/2023 Acute cholecystitis 11/06/2007 11/20/20 21 documented as of this encounter (statuses as of 07/23/2023) [address]13-2023 History of Past illness Narrative* Problem Noted Date Diagnosed Date Resolved Date Necrotizing fasciitis 01/13/20232022 Overview: Pt did not have necrotizing fasciitis during this current hospitalization. Sepsis 12/25/2022 05/09/2023 Acute cholecystitis 11/06/2007 11/20/20 21 documented as of this encounter (statuses as of 07/30/2023) [address]2023 History of Past illness Narrative* Problem Noted Date Diagnosed Date Resolved Date Necrotizing fasciitis 01/13/20232022 Overview: Pt did not have necrotizing fasciitis during this current hospitalization. Sepsis 12/25/2022 05/09/2023 Acute cholecystitis 11/06/2007 11/20/20 21 documented as of this encounter (statuses as of 07/30/2023) [address]13-2023 History of Past illness Narrative* Problem Noted Date Diagnosed Date Resolved Date Necrotizing fasciitis 01/13/20232022 Overview: Pt did not have necrotizing fasciitis during this current hospitalization. Sepsis 12/25/2022 05/09/2023 Acute cholecystitis 11/06/2007 11/20/20 21 documented as of this encounter (statuses as of 08/05/2023) [address]13-2023 History of Past illness Narrative* Problem Noted Date Diagnosed Date Resolved Date Necrotizing fasciitis 01/13/20232022 Overview: Pt did not have necrotizing fasciitis during this current hospitalization. Sepsis 12/25/2022 05/09/2023 Acute cholecystitis 11/06/2007 11/20/20 21 documented as of this encounter (statuses as of 08/06/2023) [address]13-2023 History of Past illness Narrative* Problem Noted Date Diagnosed Date Resolved Date Necrotizing fasciitis 01/13/20232022 Overview: Pt did not have necrotizing fasciitis during this current hospitalization. Sepsis 12/25/2022 05/09/2023 Acute cholecystitis 11/06/2007 11/20/20 21 documented as of this encounter (statuses as of 02/08/2024) [address]13-2023 Miscellaneous Notes* Telephone Encounter - Lula Sarmiento LPN - 01/13/2023 1:04 PM EST Records from [facility] forwarded to Carolee as requested. * Telephone Encounter - Sandra Potts LPN - 01/08/2023 4:24 PM EST Discharge summary requested from [facility] medical records at this time. Sandra Potts LPN * Telephone Encounter - Irena Bland LPN - 01/06/2023 4:51 PM EST Carolee R with [facility] calls to report that pt was discharged from [facility] on 01/01/23. Carolee is asking for discharge summary to be faxed to her when office receives it. . Irena Bland LPN documented in this encounterCleveland Clinic Foundation02-07-2023 Miscellaneous Notes* Telephone Encounter - Lula Sarmiento LPN - 01/07/2023 11:12 AM EST Patient has follow up visit 01/14/23 for 40 min-will see her as Hosp follow up and reschedule RTN follow up. * Telephone Encounter - Panfilo Oreilly MD - 12/27/2022 8:01 AM EST Reviewed and agree. When she is finally discharged from [facility], will need f/u in 1 week for 40 minute OV. * Telephone Encounter - Christi Barney RN - 12/26/2022 6:54 PM EST [facility] [place] director of health care marketing calling to let PCP know patient is in [facility] ICU with soft tissue infection. This nurse cancelled patient's hospital discharge follow up appointment from 12/20 hospital discharge which was scheduled for 12/27/22 with PCP. Christi Barney RN documented in this encounterCleveland Clinic Foundation02-06-2023 Miscellaneous Notes* Telephone Encounter - Loretta Peres LPN - 01/06/2023 5:01 PM EST Pt given message from Dr Arizmendi, pt has follow up on Friday. Margarita TOWNSEND * Telephone Encounter - Loretta Peres LPN - 01/06/2023 3:43 PM EST Debridement of groin wound 12/25/22- pt request refill on percocet for use with dressing changes, packing wound twice a day. uses discount drug in chart. Margarita TOWNSEND documented in this encounterCleveland Clinic Foundation02-03-2023 Miscellaneous Notes* Telephone Encounter - Sandra oPtts LPN - 01/03/2023 2:09 PM EST [place] 11/08/2022 NOV 01/14/2023 Sandra Potts LPN * Telephone Encounter - [place]essa Ignacio [facility] [place]03[place]23 8:30 AM [...] this request. No need to notify patient. [facility] Electronically signed by [place]essa Ign[place] [facility] [place] 01/03/2023 8:40 AM EST documented in this encounterCleveland Clinic Foundation02-02-2023 Miscellaneous Notes* Telephone Encounter - CRISTY Fish - 01/02/2023 3:05 PM EST Telephoned the patient regarding missed appt. Unable to reach pt. Voicemail is not set up. * Telephone Encounter - Robert Sanchez RPh - 01/02/2023 2:41 PM EST Patient was a no-show for PharmD visit today. Appears she was hospitalized and recently discharged home. Primary Care Pharmacy Rescheduling Outreach Call center, please contact patient and reschedule in person visit for Diabetes management within ~3-8 week(s) (priority is for patient to have hospital f/up visit with PCP first). (Visit length: 30-60 minutes) Thank you, Robert Sanchez RPh 01/02/2023 2:42 PM documented in this encounterCleveland Clinic Foundation02-02-2023 History of Present illness Narrative* Mimi Crowley RN - 01/02/2023 11:19 AM EST TRANSITIONAL CARE MANAGEMENT (TCM) COMMUNITY MONITORING PROGRAM Provider Action/FYI: PCP appt 01/14/23 Magdiel Caretenders following Spoke with patient, states pain is tolerable with pain medication, no sob, no N/V, tolerating diet,drinking fluids, blood glucose this morning was 128, staying with her niece for a week, is doing better. SUMMARY: Pt discharged from [facility] on 01/01/23. Admitted for: Necrotizing soft tissue infection Contact made with patient: Yes Hi my name is Mimi Crowley RN and I am calling from the [facility] on behalf of your PCP,Panfilo Oreilly MD I understand you were recently [...] like to speak with a social work steamtable worker to help give you support for any [...] provider to ensure you have safely transitioned home.If you are agreeable, I will send your request to a bus company manager who will contact and assist you with that appointment. This will give you an opportunity to ask any questions or address any concerns youmay have with your PCP. Inform the patient [...] manage (we might recommend a telephone or virtualvisit). For emergency symptoms, proceed to Emergency Department as usual but inform them of cough and fever symptoms TACO if present (or call on the way if possible). ORACIO Education Ordered -: No TCM Home Visit Referral Source of Stratification: [facility] Hospital Admission Status: Discharged Readmission Risk Score: 37 PAMELA Score: 4 Patient meets program referral criteria: No Patient does not qualify for High Risk TCM Home Visit program due to: Discharged home, does not meet program criteria Mimi Crowley RN January 02, 2023 11:25 AM documented in this encounterCleveland Clinic Foundation02-02-2023 History of Present illness Narrative* Brissakade Kilpatrick, [facility] - 01/02/2023 10:24 AM EST TRANSITION [...] outpatient in 2 weeks with general surgery. " Medication Reconciliation: Legend: Stopped, New, Changed, Added [...] insulin Removed blood sugar diagnostic (FREESTYLE PRECISION JONAH STRIPS) test strip To use 4 times daily to monitor glucose. Dx: uncontrolled type II DM, on insulin freestyle prec jonah last dispensed 11/29 - 25 d/s Using this in addition to the bao cholecalciferol, Vitamin D3, (VITAMIN D3) 1,250 mcg [...] mouth once daily. flash glucose scanning reader (InsureWorxSTYLE BAO 14 DAY READER) 1 Device four times daily. Taking as prescribed without any issues Discontinued: 12/31/2022 1:30 PM flash glucose sensor (FREESTYLE BAO 14 DAY SENSOR) kit 1 Each once daily. Use 1 device for up to 14 days to monitor sugars 4 times per day. BONDoster furosemide (LASIX) 20 mg tablet Take 1 tablet by mouth twice daily. Take BID with 80 mg lasix to equal 100 mg BID furosemide (LASIX) 40 mg tablet Take 1-2 tablets BID for lower extremity edema Discontinued: 12/30/2022 8:05 AM gabapentin (NEURONTIN) 800 mg tablet TAKE 1 TABLET BY MOUTH THREE TIMES A DAY [email or web address] [place] insulin glargine U-300 conc (TOUJEO MAX U-300 SOLOSTAR) 300 unit/mL (3 mL) inpn Inject 105 Units subcutaneously twice daily. insulin lispro (HUMALOG KWIKPEN INSULIN) 100 unit/mL Inject 50 units plus sliding scale three timesdaily before meals (Sliding scale: 2 units for every 50 points >150; TDD 150 units) Hemoglobin A1C (%) Date Value 11/11/2022 10.1 12/12/2021 10.0 Insulin Corea, Disposable, (BD ULTRA-FINE GABINO PEN NEEDLE) 32 gauge x 5/32" Inject 1 Each subcutaneously four times daily. [...] for pain for up to 5 days. [facility] - [place] Counseled on AEs and to monitor for [...] Use as directed WALKER ROLLATOR SEAT WITH 6" WHEELS - RED Patient requires large seat Preferred pharmacy: [facility] [place] - [id number] - [place] [address] - [address] - [phone] [address] [facility] [address] - [id number] [place] [address] - [address] [facility] - [phone] [address] [facility] [place] [address] [employer] [address] - [place] [address] [address] [facility] [phone] [place] [id number] Estimated Creatinine Clearance: 128.2 mL/min (based on SCr of 0.9 mg/dL). Estimated Glomerular Filtration Rate (mL/min/1.73m ) Date Value 01/01/2023 81 eGFR- (no units) Date Value 01/23/2022 >60 Additional follow up: Next 5 Appointments Date and Time Provider Department Dept Phone 01/02/2023 2:00 PM Robetr Sanchez [facility] [phone] 01/14/2023 11:00 AM Panfilo Oreilly [facility] [phone] Interventions Made: Patient education/Medication counseling Pharmacist Recommendations Made None Care Coordination: None at this time Time spent on patient: 15-30 minutes Brissa Kilpatrick RPh January 02, 2023 10:25 AM documented in this encounterCleveland Clinic Foundation02-01-2023 [facility]01[facility] Miscellaneous Notes * Telephone Encounter - Diana Mackenzie LPN - 12/31/2022 1:26 PM EST Patient has been identified by name and date of : Pharmacy phones for refill(s): Requested Prescriptions Pending Prescriptions Disp Refills flash glucose sensor (FREESTYLE BAO 14 DAY SENSOR) kit 2 Each 5 [...] you. Diana Mackenzie LPN documented in this encounterCleveland Clinic Foundation01-31-2023 [facility]30-[facility]-2023 NoteHNO ID: [id number] Author: Interface Note Service: ? Author Type: ? Type: Progress Notes Filed: 12/28/2022 4:21 AM Note Text: Epic Scheduled Downtime: 12/28/2022 1:00:00 AM to 12/28/2022 3:56:[facility] Miscellaneous Notes* Telephone Encounter - Silvino Martinez LPN - 12/27/2022 3:46 PM EST Patient phones requesting refills as follows: Requested Prescriptions Pending Prescriptions Disp Refills gabapentin (NEURONTIN) 800 mg tablet [Pharmacy Med Name: Gabapentin 800MG TABS] 90 tablet 2 Sig: TAKE 1 TABLET BY MOUTH THREE TIMES A DAY Please review and advise. Silvino Martinez LPN documented in this encounterCleveland Clinic Foundation01-27-2023 [facility]26-[facility] History of Present illness Narrative* Jersey Key APRN.BLOCK SAWYER - 12/25/2022 2:22 AM EST Images from the original note were not included. Critical Care Transport Note Patient Name: Macario Wallace Service Date: 12/25/2022 Referring Physician: Job Accepting Physician: Delfino Referring Facility: [facility] Accepting Facility: [facility] SUBJECTIVE/CHIEF COMPLAINT: left thigh abscess REASON FOR TRANSPORT: Higher level of surgical intervention not available at [facility]SH History of Present Illness: The following history is what was known to CCT team at time of given care and summarized through: referring provider report Macario Wallace is a 47 year old female with pertinent past medical history significant for CHF, COPD, HTN, GERD, DM2, LOGAN, and NSTEMI. She presented to [place] ED on 12/25/2022 for evaluation of leftthigh and labia drainage. Per report, patient was [...] will need higher level of surgical intervention not available at [place]. At this time, the physician managing the patient requested transfer to [facility] for tertiary and/or quaternary services unavailable at the referring facility. Patient condition at time of exam was: Acutely ill and emergent surgical intervention. Due to the unique circumstances of the patient, it was determined that this was the closest, most appropriate facility by referring physician. The physician managing the patient requested [facility] transport and treat the patient for the purpose of tertiary care, evaluation, and management of her surgical condition(s). Air medical transport was requested to reduce the [id number] time, 20 minutes by air vs. 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 Dumont Pulmonary embolism ([facility]) Seasonal allergies Unspecified essential hypertension PAST [...] 60 tablet^Rfl: 2 flash glucose scanning reader (FREESTYLE BAO 14 DAY READER)^1 Device four times daily.^Disp: 1 Each^Rfl: 0 blood sugar diagnostic (FREESTYLE LITE STRIPS) test strip^To use 4 times daily to monitor glucose. Dx: uncontrolled type II DM, on insulin^Disp: 100 Strip^Rfl: 5 blood sugar diagnostic (FREESTYLE PRECISION JONAH STRIPS) test strip^To use 4 times daily to monitor glucose. Dx: uncontrolled type II DM, on insulin^Disp: 200 Strip^Rfl: 3 insulin glargine U-300 conc (TOUJEO MAX U-300 SOLOSTAR) 300 unit/mL (3 mL) inpn^Inject 105 Units subcutaneously twice daily.^Disp: 21 mL^Rfl: 5 insulin lispro (HUMALOG KWIKPEN INSULIN) 100 unit/mL^Inject 50 units plus sliding scale three timesdaily before meals (Sliding scale: 2 units for every 50 points >150; TDD 150 units)^Disp: 15 Each^Rfl: 5 albuterol (PROVENTIL) 2.5 mg /3 mL (0.083 %) nebulizer solution^Use 3 mL via nebulizer every 2 hours as needed for wheezing/shortness of breath. Use over 5- 15minutes.^Disp: 90 mL^Rfl: 2 gabapentin (NEURONTIN) 800 mg tablet^Take 1 tablet by mouth three times daily for 30 days.^Disp: 90tablet^Rfl: 2 omeprazole (PRILOSEC) 40 mg capsule^Take 1 capsule by mouth once daily.^Disp: 90 capsule^Rfl: 1 empagliflozin (JARDIANCE) 10 mg tablet^Take 1 tablet by mouth daily with breakfast.^Disp: 30 tablet^Rfl: 5 Insulin Corea, Disposable, (BD ULTRA-FINE GABINO PEN NEEDLE) 32 gauge x 5/32"^Inject 1 Each subcutaneously four times daily. use [...] daily.^Disp: 90 tablet^Rfl: 1 flash glucose sensor (InsureWorxSTYLE BAO 14 DAY SENSOR) kit^1 Each once daily. Use 1 device for up to 14 days to monitor sugars 4 times per day.^Disp: 2 Each^Rfl: 5 furosemide (LASIX) 40 mg tablet^Take 1-2 tablets BID for lower extremity edema^Disp: 120 tablet^Rfl: 5 lisinopril (ZESTRIL, PRINIVIL) 10 mg tablet^Take 1 tablet by mouth once daily.^Disp: 90 tablet^Rfl:1 loratadine (CLARITIN) 10 mg tablet^Take 1 tablet by mouth once daily.^Disp: 90 tablet^Rfl: 1 metoprolol succinate ER (TOPROL XL) 25 mg 24 hr tablet^Take 1 tablet by mouth once daily.^Disp: 90 tablet^Rfl: 1 WALKER ROLLATOR SEAT WITH 6" WHEELS - RED^Patient requires large seat^Disp: 1 [...] sinus tachycardia CT Scan: Per radiology report, "Air and stranding in the left inner thigh extending into the left buttock. There is minimal stranding of the subcutaneous fat in the left labia without abscess." Procedure/Operative Report(s): None Invasive Lines/Devices/Tubes Placed by [...] patient was placed on the transport monitor andall transport equipment transitioned in standard fashion. Bedside report received from ED RN. Patient receiving antibiotics at this time. On assessment, patient screaming 10/10 pain to right thigh. Patient received dilaudid in the ED several hours prior to our arrival. Will give 50mcg fentanyl IVP given with positive results. The patient was transferred to the transport cot and transported to theAircraft and loaded without incident. The patient was medically managed, monitored, and reassessed d uring transport. Medications Managed & Administered by CCT: -Fentanyl 50mcg IVP -Continue Vancomycin infusion Procedures Performed by CCT: - none ASSESSMENT/PLAN: Macario Wallace is a 47 year old female p/w concern of infection from her primary care physician. CT scan noted subcutaneous air to left thigh and labia concerning for possible gangrene. For this reason she will transfer to [facility] for emergent OR. Gangrene to left [...] VS en route - expedite transfer to [place] for further intervention The transport was completed without significant incident or change in the patient's status. The patient was transported to the [facility] by [facility]otor (Helicopter) for tertiary and/or quaternary evaluation and management of her Emergent Surgical condition(s). Upon arrival to the receiving facility, a onso-uy-ieoh report was given to bedside nursing staff Jacqueline and Resident / PA / PAINTER SET: Dr. Kelley . Patient care was transferred. The patient condition was Stable at the time of transfer. Vital Signs at time care transferred to the receiving facility unit: HR 100bpm, Rhythm ST, BP 123/69 mmHg, RR 25, SpO2 94% on 6L SPECIAL EQUIPMENT: None MODE OF TRANSPORT: [employer]otor (Helicopter) CRITICAL CARE TIME: I personally performed 45 minutes of critical care time exclusive of separatelybillable procedures, ambulance charges and treating other patients. This was necessary to treat or prevent further deterioration of the following condition(s): Gangrene infection which the patient had and/or had a high probability of suddenly developing. SIGNATURE: [place] Key APRN.CNP Acute Care Nurse Practitioner [facility] Critical Care Transport Team [facility] Kaiser [facility] December 24, 2022 11:54pm Note Date/Time December 24, 2022 1 0:26pm [facility] Medical Records Department [address] [place] [address] Emergency Department Summary 12/24/22 MR#: [id number] Acct: [id number] Name: MACARIO WALLACE Rep #:[id number] : 1975 47 From: Jozef Kaiser MD PCP: Dr. Tino Oreilly MD Status :REG ER Location: ED HPI History of Present Illness Chief Complaint: Abscess Detail of Chief Complaint: Abscess left labia groin area Informant: patient Onset/Context/Timing Onset: Days (Patient states she had the abscess when she was in the hospital. She was told by the doctor that nothing further need to be done since it ruptured on its own and drained.) Context: - (Unknown) Timing: Continuous Quality: Swollen painful red necrotic area left labial groin region Location: Left Current Severity: Moderate Maximum Severity: Severe Worsened by: Increased pain with walking and palpation Relieved by: Nothing Associated Symptoms Associated Symptoms: Shaking chills and subjective fever Narrative Narrative: Patient is a morbidly obese woman with history of type 2 diabetes, obstructive sleep apnea, respiratory failure with hypoxia, essential hypertension, myocardial infarction, chronic diastolic congestive heart failure, KERRY who was admitted and recently discharged. Notes for the visit and discharge summary were reviewed. There is no mention of infection or spontaneous drainage of abscess. Reason for admission was unable to ambulate, acute kidney injury, metabolic encephalopathy, hyperglycemia type 2 diabetes without complication, essential hypertension and COPD baseline. Patient was instructed to use her CPAP machine which she does not not always comply with. Patient was seen by her primary care physician. She was sent to the emergency room because of the infection. She has not checked her blood sugar recently. She denies headache, visual, ocular auditory symptoms. Denies photophobia, neckpain or neck stiffness. She denies increased shortness of breath. She denies chest discomfort. She denies vomiting or diarrhea. She denies dysuria, frequency, hematuria or flank pain. Prior similar symptoms: Yes (Yes per patient) Recent Illness/Hospitalization: Yes PFSH [facility] Medical History Abscess Abscess of vulva KERRY (acute kidney injury) Anxiety BiPAP (biphasic positive airway pressure) dependence Chronic diastolic (congestive) heart failure Chronic respiratory failure with hypoxia Contusion of knee, right COPD (chronic obstructive pulmonary disease) Depression Diabetes Dyspnea on exertion Essential hypertension GERD (gastroesophageal reflux disease) Hidradenitis History of left heart catheterization (LHC) (~01/05/19) History of MRSA infection Hyperglycemia due to type 2 diabetes mellitus Hyperlipidemia Hypertension Morbid obesity Necrotizing soft tissue infection Non-healing open wound of left groin NSTEMI (non-ST elevated myocardial infarction) 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 Old myocardial infarction On home oxygen therapy Open wound of vulva with complication Opiate overdose Pulmonary embolism Respiratory failure with hypoxia Restrictive lung disease secondary to obesity Sleep apnea Smoker Soft tissue abscess of inguinal region Tobacco abuse Type 2 diabetes mellitus Home Medications multivit-iron 18 mg-folic acid 400 mcg-calcium 500 mg-minerals tablet 1 ea PO DAILY supplement 03/26/17 [History Last Taken 12/09/22] omeprazole 40 mg capsule,delayed release 40 mg PO DAILY GERD 12/15/18 [History Last Taken 12/09/22] loratadine 10 mg tablet 10 mg PO DAILY PRN Allergies 03/01/20 [History Last Taken 12/09/22] apixaban 5 mg tablet 5 mg PO BID blood thinner 08/20/20 [History Last Taken 12/09/22] diltiazem HCl 120 mg capsule,extended release 24 hr 120 mg PO DAILY heart rate 08/20/20 [History Last Taken 12/09/22] lisinopril 10 mg tablet 10 mg PO DAILY blood pressure 03/26/21 [History Last Taken 12/09/22] metformin 500 mg tablet,extended release 24 hr 2,000 mg PO DAILY diabetes 03/26/21 [History Last Taken 01/15/22] metoprolol succinate 25 mg tablet,extended release 24 hr 25 mg PO DAILY blood pressure 03/26/21 [History Last Taken 12/09/22] atorvastatin 80 mg tablet 100 mg PO QHS Check with primary doctor 02/07/22 [History Last Taken 12/09/22] furosemide 40 mg tablet 40 mg PO BID diuretic 09/22/22 [History Last Taken 12/09/22] ammonium lactate 12 % lotion 1 applic topical TID 30 days #400 grams 09/24/22 [Rx Last Taken 12/08/22] insulin lispro 100 unit/mL subcutaneous pen (Humalog KwikPen (U-100) Insulin) 50unit (0.5 mL) subcut TIDAC #0 mL 09/24/22 [Rx Last Taken 12/09/22] albuterol sulfate 2.5 mg/3 mL (0.083 %) solution for nebulization 2.5 mg inhalation Q4H PRN SOB 12/09/22 [History Last Taken 12/08/22] doxycycline monohydrate 100 mg capsule 100 mg PO BID #14 CAPSULES 12/09/22 [Rx Last Taken Unknown] empagliflozin 10 mg tablet (Jardiance) 10 mg PO DAILY DM 12/09/22 [History Last Taken 12/09/22] fenofibrate nanocrystallized 145 mg tablet 145 mg PO DAILY CHOLESTEROL 12/09/22 [History Last Taken 12/09/22] furosemide 20 mg tablet 20 mg PO DAILY diuretic 12/09/22 [History Last Taken Unknown] gabapentin 800 mg tablet 800 mg PO TID NERVE PAIN 12/09/22 [History Last Taken 12/09/22] insulin glargine U-300 conc 300 unit/mL (3 mL) subcutaneous pen (Toujeo Max U- 300 SoloStar) 150 unit subcut DAILY DM 12/09/22 [History Last Taken 12/09/22] nicotine (polacrilex) 2 mg buccal mini lozenge 2 mg PO PRN PRN Smoking Gzxfokdtw15/09/23 [History Last Taken 12/08/22] potassium chloride 20 mEq tablet,extended release 20 meq PO BID Check with primary doctor 12/19/22 [History Last Taken Unknown] insulin degludec 200 unit/mL (3 mL) subcutaneous pen (Tresiba FlexTouch U-200 insulin) 104 unit subcut BID DM 12/24/22 [History Last Taken Unknown] Allergy/AdvReac Type Severity Reaction Status Date / Time cyclobenzaprine HCl Allergy Hives Verified 12/24/22 21:17 [From Flexeril] venlafaxine [From Effexor] AdvReac Severe unknown Verified 12/24/22 21:17 Family History Father CVA (cerebral vascular accident) Heart disease Diabetes Mother Thyroid disorder Surgical History H/O arthroscopic knee surgery History of delivery History of cholecystectomy Social History household members: none Smoking Status: Current some day smoker tobacco type: cigarettes how long ago did patient quit smokin PPD smoker second hand exposure: Yes alcohol intake: never substance use type: does not use caffeine: Yes Type: carbonated beverages Number of servings: 1 and coffee Number of servings: 1 ROS ROS ED Constitutional Constitutional ED: Reports chills; Denies fever(s), sweats or weight loss Eyes Eyes: Denies blurry vision, change in vision or diplopia ENT ENT ED: Denies ear pain, rhinorrhea or sore throat Cardiovascular Cardiovascular: Denies chest pain, orthopnea, palpitations, paroxysmal nocturnaldyspnea or racing heartbeat Respiratory/Chest Respiratory/Chest: Reports dyspnea, dyspnea on exertion and other Details: Patient is just Jakin exertion is chronic. ; Denies cough, orthopnea or paroxysmal nocturnal dyspnea Gastrointestinal Gastrointestinal: Denies abdominal pain, constipation, diarrhea, nausea or vomiting Genitourinary Genitourinary ED: Denies dysuria, hematuria or urinary frequency Musculoskeletal Musculoskeletal: Denies arthralgias, back pain, myalgias or neck pain Integumentary Reports abscess and rash; Denies Abrasions Neurologic Neurologic: Denies headache(s) or paresthesias Endocrine Endocrinology: Denies cold intolerance, heat intolerance or polyuria Hematologic/Lymphatic Hematologic/Lymphatic: Reports systems reviewed and no addt'l complaints, exceptas documented EXAM Physical Exam Const Vital Signs: 12/24/22 21:08 12/24/22 21:23 12/24/22 22:04 Temperature 97 F L Temperature Source Temporal Pulse Rate 124 H 112 H Respiratory Rate 26 H 22 H Blood Pressure 119/67 Blood Pressure Mean 84 Pulse Ox 75 92 92 Oxygen Delivery Method Room Air Nasal Cannula Room Air Oxygen Flow Rate (L/min) 3 12/24/22 22:18 12/24/22 23:35 Temperature Temperature Source Pulse Rate 105 H 109 H Respiratory Rate 18 16 Blood Pressure 109/95 H 109/47 L Blood Pressure Mean 99 67 Pulse Ox 92 94 Oxygen Delivery Method Nasal Cannula Nasal Cannula Oxygen Flow Rate (L/min) 3 5 Positive well nourished and well developed Constitutional Narrative: Ill-appearing woman. General Appearance ED: well developed; Negative for cyanotic or diaphoretic HEENT Reports dry mucous membranes HEENT Narrative: Head is normal cephalic and atraumatic. Ears normal. Nares patent. There is no drainage. Mucosa is dry. No erythema or exudate the posterior pharynx. Uvula is midline. Mouth ED: Yes dry mucous membranes Mouth: dry mucous membranes Eyes PERRL and EOMs intact bilaterally General Eye ED: Negative for pale conjunctiva or scleral icterus Neck no lymphadenopathy, supple and no JVD Chest Wall inspection of chest normal and palpation of chest normal Resp normal respiratory effort and clear to auscultation bilaterally Cardio regular rhythm, S1 normal heart sound, S2 normal heart sound and no murmurs Rate: tachycardic GI non-tender and non-distended; Negative for normal to inspection, nondistended, normoactive bowel sounds, hepatosplenomegaly or no masses Auscultation: hypoactive bowel sounds Palpation: soft; Negative for tender, guarding, splenomegaly or mass Narrative: There is erythema involving the labia majora perineal region with necrotic painful lesion noted in the inguinal gluteal region on the left. There is cellulitis of the left thigh and panniculus as well. There is no crepitus appreciated. Patient has significant pain to palpation and raises concern for possibility of necrotizing fasciitis. Back/Spine no CVA tenderness Extremity Extremity Narrative: Tenderness proximal left thigh General Extremety ED: Yes edema and tenderness General Extremity: edema Neuro oriented x3, CN's II-XII intact bilaterally and no sensory deficits noted Sensorium / Orientation: alert Motor Exam: strength 5/5 throughout Psych mental status grossly normal Skin No no wounds and No skin turgor normal General Skin Exam: Negative for elasticity normal or jaundice Wounds: wounds noted MDM MDM MDM Narrative Medical decision making narrative: Patient at the minimum has an abscess with cellulitis of the pelvic abdominal thigh region on the left. Because it is painful with necrosis noted concerned this may represent necrotizing fasciitis. CT of the pelvic and extremity was obtained. Blood work was obtained to assess for sepsis. Because of concern fornecrotizing fasciitis patient received clindamycin first followed by Zosyn and vancomycin. Patient will require admission. Patient is not a candidate for I&Din the emergency department because of body habitus and history of chronic respiratory failure with hypoxia and obstructive sleep apnea. Her recent visit was reviewed and documented in the HPI narrative. There is a discrepancy in what patient told me and position. Documented. Patient's last dose of apixaban was this morning. She is on anticoagulant for VTE. Case was discussed with surgery, Dr. Phillips. She stated patient needs to be transferred because of patient's comorbidities, postoperative care required. She was informed that the last critical care patient took over 3 to 4 hours for transport. She still recommended transfer because of postoperative care and patient's comorbidities . [facility] the [facility]. [facility] will try [facility]. Lab Data Attestation: I reviewed the patient's lab results. Lab results narrative: White count is elevated with shift. There is no bandemia. Patient does have mild anemia with an H&H of 10.2 and 33.3. Coags are unremarkable. Comprehensive metabolic panel does not elevated BUN/creatinine of 28 and 1.72. GFR is 34. BUN/creatinine ratio 16:1. Liver enzymes are normal. Lactate is pending. Labs: Laboratory Results - last 24 hr 12/24/22 12/24/22 12/24/22 21:40 21:40 21:40 WBC 16.3 H RBC 3.52 L Hgb 10.2 L Hct 33.3 L MCV 94.6 MCH 29.0 MCHC 30.6 L RDW Std Deviation 56.8 H RDW Coeff of Darrion 16.3 H Plt Count 323 MPV 9.3 Immature Gran % (Auto) 1.000 H Neut % (Auto) 75.3 H Lymph % (Auto) 16.9 L Defiance % (Auto) 4.2 Eos % (Auto) 2.0 Baso % (Auto) 0.6 Absolute Neuts (auto) 12.3 H Absolute Lymphs (auto) 2.75 Nucleated RBC % 0.1 PT 15.9 H INR 1.3 APTT 43.3 H Sodium 134 L Potassium 4.6 Chloride 102 Carbon Dioxide 26.0 Anion Gap 6 BUN 28 H Creatinine 1.72 H Estim Creat Clear Calc 40.17 Est GFR (MDRD) Af Amer 41 L Est GFR (MDRD) Non-Af 34 L BUN/Creatinine Ratio 16.3 Glucose 99 Lactic Acid Calcium 8.7 Total Bilirubin 0.20 AST 36 ALT 41 Alkaline Phosphatase 60 Total Protein 7.2 Albumin 2.4 L Globulin 4.8 H Albumin/Globulin Ratio 0.5 L 12/24/22 21:40 WBC RBC Hgb Hct MCV MCH MCHC RDW Std Deviation RDW Coeff of Darrion Plt Count MPV Immature Gran % (Auto) Neut % (Auto) Lymph % (Auto) Defiance % (Auto) Eos % (Auto) Baso % (Auto) Absolute Neuts (auto) Absolute Lymphs (auto) Nucleated RBC % PT INR APTT Sodium Potassium Chloride Carbon Dioxide Anion Gap BUN Creatinine Estim Creat Clear Calc Est GFR (MDRD) Af Amer Est GFR (MDRD) Non-Af BUN/Creatinine Ratio Glucose Lactic Acid 3.3 H* Calcium Total Bilirubin AST ALT Alkaline Phosphatase Total Protein Albumin Globulin Albumin/Globulin Ratio Radiography Diagnostic Testing: Clinical Impression(s) from Imaging Studies Pelvis CT 12/24/22 21:26 IMPRESSION: 1. Air and stranding in the left inner thigh extending into the left buttock. There is minimal stranding of the subcutaneous fat in the left labia without abscess. 2. Mild anasarca. 3. No acute abnormality of the intrapelvic contents. Electronically Signed: Michael Anguiano DO at 23:26 EST Reading Location ID and State: [facility] / [place] Tel [phone], Service support , EKG Initial EKG: Attestation: I personally reviewed and interpreted this EKG as follows: Interpretation: Sinus Tachycardia (Sinus tachycardia otherwise EKG is normal. Rate is 105. GA interval is 134 ms. QS duration 76 ms. QT duration 318 ms. Wilson is normal.) Prior: Unchanged Critical Care Time Critical Care Time: Yes Critical care time (excluding procedures): 30-74 minutes (33), Including time spent: (History, physical, documentation, independent review of laboratory results, initiation of therapy, review of prior records), Discussing w/Patient &/or Family/Engineering Associate, Discussing w/Consultants (Case discussed with surgeon on- call. Recommended transfer to tertiary care facility for reasons documented in the MDI) and Arranging Admission or Transfer Discharge Plan Triage Chief Complaint: Abscess ED Provider: Jozef Kaiser Dx/Rx/DC Orders Clinical Impression: Gas gangrene of extremity, Sepsis, Acidosis, lactic, Chronic kidney disease, Type 1 diabetes, Anticoagulant long-term use Prescriptions: No Action loratadine 10 mg tablet 10 mg PO DAILY PRN (Reason: Allergies) lisinopril 10 mg tablet 10 mg PO DAILY Label Comments: TAKE 1 TABLET BY MOUTH EVERY DAY metformin 500 mg tablet extended release 24 hr 2,000 mg PO DAILY metoprolol succinate 25 mg tablet extended release 24 hr 25 mg PO DAILY Label Comments: TAKE 1 TABLET BY MOUTH EVERY DAY atorvastatin 80 mg tablet 100 mg PO QHS [id number]-calcium-mins 1 EACH tablet 1 ea PO DAILY Label Comments: vitamin omeprazole 40 MG capsule,delayed release(DR/EC) 40 mg PO DAILY diltiazem HCl 120 MG capsule 120 mg PO DAILY apixaban 5 MG tablet 5 mg PO BID furosemide 40 mg tablet 40 mg PO BID Label Comments: Take 1 tablet by mouth twice daily. insulin lispro [Humalog KwikPen Insulin] 100 unit/mL Insulin Pen 50 unit subcut TIDAC Qty: 0 0RF ammonium lactate 12 % Lotion 1 applic topical TID 30 Days Qty: 400 0RF Protocol: *Topical Application Instructions APPLICATION INSTRUCTIONS: apply to both legs andaffected dry areas of the body albuterol sulfate 2.5 mg /3 mL (0.083 %) solution for nebulization 2.5 mg inhalation Q4H PRN (Reason: SOB) gabapentin 800 mg tablet 800 mg PO TID furosemide 20 mg tablet 20 mg PO DAILY fenofibrate nanocrystallized 145 mg tablet 145 mg PO DAILY Jardiance 10 mg tablet 10 mg PO DAILY nicotine (polacrilex) 2 mg mini lozenge 2 mg PO PRN PRN (Reason: Smoking Cessation) Toujeo Max U-300 SoloStar 300 unit/mL (3 mL) insulin pen 150 unit SUBCUT DAILY doxycycline monohydrate 100 mg capsule 100 mg PO BID Qty: 14 0RF potassium chloride 20 mEq tablet extended release 20 meq PO BID insulin degludec [Tresiba FlexTouch U-200] 200 unit/mL (3 mL) insulin pen 104 unit SUBCUT BID Label Comments: INJECT 100 UNITS SUBCUTANEOUSLY TWICE DAILY (this replaces levemir) Primary Care Provider: Tino Oreilly Referrals: Tino Oreilly MD [Primary Care Provider] - Disposition Disposition: Acute Care Hospital Discharge Location: [facility] What to do if you have Problems For any increased pain, shortness of breath, bleeding, nausea or vomiting, chestpain, or any unexpected problems, contact your Primary Care Provider. Call [facility] ([phone]) or report to the closest Emergency Room. Call 911 if necessary. 12/24/22 [id number] <Electronically signed by Jozef Kaiser MD> Cosigner Signature (if applicable): CC: Dr. Tino Oreilly MD ~ Signed [facility] Work Phone: [phone] 811-300401-24-2023 Miscellaneous Notes* Telephone Encounter - Lula Sarmiento LPN - 12/24/2022 6:25 PM EST Patient stated she will go to [facility]. PCP updated. * Telephone Encounter - Panfilo Oreilly MD - 12/24/2022 6:17 PM EST If she has an abscess, she needs to return to ED have it drained. I would not wait until Friday because she risks worsening infection and sepsis if this is not treated quickly. * Telephone Encounter - Lula Sarmiento LPN - 12/24/2022 6:12 PM EST Honed patient to update her of provider's message. She reports her BS is at 99 and she reports she is still a little shaky. Patient says her BS have been running in the 80-90's for the last couple ofdays. Patient has Hospital follow up scheduled for 12/27/22. Patient also wanted to alert PCP that she has abscess that has returned in groin area in her folds. She said she had it in the hospital but they didn't do anything with it. Says it's hard with foul smelling drainage. Advised her I would update PCP and see if she needs an additional appointment to address this. * Telephone Encounter - Panfilo Oreilly MD - 12/24/2022 5:19 PM EST Typically we would have her eat or drink something containing carbs such as crackers with cheese, acan of juice, or 4 glucose tablets and recheck sugar in 15 minutes. Repeat if sugar is not above 70. If she does this 3 times and sugar is not above 70, she needs to go to the ED. If she doesn't and her sugar does not improve, she risks diabetic coma or . * Telephone Encounter - Tri Sorensen RN - 12/24/2022 4:59 PM EST Patient calling and states she has a Bao blood glucose monitor and she frequently checks her sugar. She reports her blood sugar is currently 66 and she just ate two bologna sandwiches within the last 30min-1 hour. Ate usual food amounts today. Pt denies any s/sx of any acute illness. She is currently eating some candy and drinking some soda. Sates she feels shaky, but denies any other symptoms of hypoglycemia. Concerned that her sugar is this low-states it is unusual for her. Pt checked bloodsugar with home monitor as well and got 67. Pt asking if PCP can advise her or Robert Sanchez [facility]. Explained that message would be sent to Dr. Oreilly for review but will also forward to Robert. Please call pt with advise. Thank you. [facility] Wilkes [facility] December 20, 2022 2:33pm Note Date/Time December 20, 2022 2 :29pm [facility] Medical Records Department [address] [place] [address] Instructions for Home/Discharge Instructions 12/20/22 1429 MR#: [id number] Acct: [id number] Name: MACARIO WALLACE Rep #:[id number] : 1975 47 From: Liam regalado MD PCP: Dr. Tino Oreilly MD Status :ADM IN Discharge Instructions Diet Discharge Diet: Low fat / Low cholesterol and 1800 Calorie Control Diet Activity Discharge Activity: Return to Normal Activity Dressing / Incision Call your doctor if you observe: Fever of 101 or Higher, Shortness of breath, Dizziness, Fainting spells, Swelling in the ankles, Chest pain and Increased palpitations (irregular heartbeat) Follow Up Care Test Results: Test results from this visit will be discussed in further detail at your follow- up appointment, if applicable. Discharge Plan Admission Admit Date/Time: 12/18/22 23:36 Attending Provider: Liam Wilkes Primary Care Provider: Tino Oreilly Consulting Providers: Chris Gill Discharge Orders/Prescriptions Prescriptions: Continued loratadine 10 mg tablet 10 mg PO DAILY PRN (Reason: Allergies) lisinopril 10 mg tablet 10 mg PO DAILY Label Comments: TAKE 1 TABLET BY MOUTH EVERY DAY metformin 500 mg tablet extended release 24 hr 2,000 mg PO DAILY metoprolol succinate 25 mg tablet extended release 24 hr 25 mg PO DAILY Label Comments: TAKE 1 TABLET BY MOUTH EVERY DAY atorvastatin 80 mg tablet 100 mg PO QHS zlkikaix-ggsx-ZO-calcium-mins 1 EACH tablet 1 ea PO DAILY Label Comments: vitamin omeprazole 40 MG capsule,delayed release(DR/EC) 40 mg PO DAILY diltiazem HCl 120 MG capsule 120 mg PO DAILY apixaban 5 MG tablet 5 mg PO BID Trulicity 4.5 mg/0.5 mL pen injector 4.5 mg SUBCUT WE Label Comments: Inject 4.5 mg subcutaneously one time a week. furosemide 40 mg tablet 40 mg PO BID Label Comments: Take 1 tablet by mouth twice daily. insulin lispro [Humalog KwikPen Insulin] 100 unit/mL Insulin Pen 50 unit subcut TIDAC Qty: 0 0RF ammonium lactate 12 % Lotion 1 applic topical TID 30 Days Qty: 400 0RF Protocol: *Topical Application Instructions APPLICATION INSTRUCTIONS: apply to both legs andaffected dry areas of the body insulin degludec [Tresiba FlexTouch U-200] 200 unit/mL (3 mL) insulin pen 95 unit SUBCUT BID 30 Days Qty: 28.5 0RF Label Comments: INJECT 100 UNITS SUBCUTANEOUSLY TWICE DAILY (this replaces levemir) albuterol sulfate 2.5 mg /3 mL (0.083 %) solution for nebulization 2.5 mg inhalation Q4H PRN (Reason: SOB) gabapentin 800 mg tablet 800 mg PO TID furosemide 20 mg tablet 20 mg PO DAILY fenofibrate nanocrystallized 145 mg tablet 145 mg PO DAILY Jardiance 10 mg tablet 10 mg PO DAILY nicotine (polacrilex) 2 mg mini lozenge 2 mg PO PRN PRN (Reason: Smoking Cessation) Toujeo Max U-300 SoloStar 300 unit/mL (3 mL) insulin pen 150 unit SUBCUT DAILY prednisone 20 mg tablet 60 mg PO DAILY Qty: 12 0RF doxycycline monohydrate 100 mg capsule 100 mg PO BID Qty: 14 0RF potassium chloride 20 mEq tablet extended release 20 meq PO BID Referrals / Follow Up: Tino Oreilly MD [Primary Care Provider] - Within 1 Week Disposition Disposition (needs filled in before D/C Order can be placed): Home Health Service 12/20/22 1433<Electronically signed by Liam Wilkes MD>Liam Wilkes MD CC: Dr. Tino Oreilly MD; Dr. Chris Gill MD ~ Signed [facility] Work Phone: 1(563) 517-288701-19-[address] Wilkes [facility] December 19, 2022 3:25pm Note Date/Time December 19, 2022 3 :15pm [facility] Medical Records Department [address] [place] [address] Progress Note - Hospitalist 12/19/22 1453 MR#: [id number] Acct: [id number] Name: MACARIO WALLACE Rep #:[id number] : 1975 47 From: Liam regalado MD PCP: Dr. Tino Oreilly MD Status :ADM IN Location: [place] [address] Subjective Subjective Somnolent but arousable Objective Data Objective Data Vital Signs: Vital Signs Temp Pulse Resp BP Pulse Ox O2 Del Method O2 Flow Rate 98.2 F 92 16 109/49 L 93 Nasal Cannula 4 12/19/22 08:43 12/19/22 08:43 12/19/22 08:43 12/19/22 08:43 12/19/22 08:43 12/19/22 09:26 12/19/22 12:45 FiO2 35 12/19/22 03:34 Oxygen Flow Rate (L/min) 4 Oxygen Delivery Method Nasal Cannula Weight: 383 lb 13.196 oz Body Mass Index (BMI) 60.1 Intake & Output: Intake and Output for Last 24 Hours 12/18/22 12/19/22 12/20/22 03:59 03:59 03:59 Intake Total 232.5 / 232.5 753.33 / 753.33 Output Total 450 / 450 Balance 232.5 / 232.5 303.33 / 303.33 Lab / Micro Data Result Diagrams: 12/19/22 05:09 12/19/22 05:09 Labs: Laboratory Results - last 24 hr 12/18/22 22:23: WBC 18.3 H, RBC 4.04 L, Hgb 11.5 L, Hct 37.4, MCV 92.6, MCH 28.5, MCHC 30.7 L, RDW Std Deviation 57.5 H, RDW Coeff of Darrion 16.8 H, Plt Count 251, MPV 10.0, Immature Gran % (Auto) 0.800, Neut % (Auto) 84.5 H, Lymph % (Auto) 8.9 L, Defiance % (Auto) 5.2, Eos % (Auto) 0.3, Baso % (Auto) 0.3, Absolute Neuts (auto) 15.5 H, Absolute Lymphs (auto) 1.63, Nucleated RBC % 0 12/18/22 22:23: Sodium 130 L, Potassium 5.6 H, Chloride 98, Carbon Dioxide 27.0,Anion Gap 5, BUN 80 H, Creatinine 2.37 H, Estim Creat Clear Calc 29.15, Est GFR (MDRD) Af Amer 28 L, Est GFR (MDRD) Non-Af 24 L, BUN/Creatinine Ratio 33.8 H, Glucose 171 H, Calcium 8.6, Troponin I High Sens 22 12/18/22 22:30: Urine Color Yellow, Urine Clarity Clear, Urine pH 6.0, Ur Specific Renick 1.010, Urine Protein Negative, Urine Glucose (UA) 250 H, Urine Ketones Negative, Urine Occult Blood Negative, Urine Nitrite Negative, Urine Bilirubin Negative, Urine Urobilinogen Normal, Ur Leukocyte Esterase Negative, Urine RBC 0 SEEN, Urine WBC 0 SEEN, Ur Squamous Epith Cells 0 SEEN, Urine Bacteria 1+, Urine Mucus 0 SEEN, Urine Yeast RARE 12/19/22 05:09: WBC 17.8 H, RBC 3.67 L, Hgb 10.5 L, Hct 34.4 L, MCV 93.7, MCH 28.6, MCHC 30.5 L, RDW Std Deviation 58.3 H, RDW Coeff of Darrion 16.9 H, Plt Count 236, MPV 10.3, Immature Gran % (Auto) 0.600, Neut % (Auto) 83.2 H, Lymph % (Auto) 9.3 L, Defiance % (Auto) 6.2, Eos % (Auto) 0.3, Baso % (Auto) 0.4, Absolute Neuts (auto) 14.8 H, Absolute Lymphs (auto) 1.65, Nucleated RBC % 0 12/19/22 05:09: Sodium 132 L, Potassium 5.1, Chloride 98, Carbon Dioxide 27.0, Anion Gap 7, BUN 83 H, Creatinine 2.34 H, Estim Creat Clear Calc 29.52, Est GFR (MDRD) Af Amer 29 L, Est GFR (MDRD) Non-Af 24 L, BUN/Creatinine Ratio 35.5 H, Glucose 145 H, Calcium 8.1 L 12/19/22 06:29: POC Glucose 135 H 12/19/22 11:15: POC Glucose 162 H ABG Data ABG results: ABG 12/18/22 22:43 Specimen Type ART Sample Site R Brach pH 7.30 L Bicarbonate Actual 26.7 H Total CO2 28 Base Excess 0 O2 Saturation 89 L ABG pCO2 53.7 H ABG pO2 63 L Anil Test Positive O2 Delivery Device Cannula Liter Flow 3.0 Radiography Diagnostic Testing: Radiology Impression Chest X-Ray 12/18/22 22:40 IMPRESSION: No radiographic evidence of acute cardiopulmonary disease. Electronically Signed: Leonides Lakhani MD at 22:59 EST , Physical Exam Narrative General: Alert but drowsy, Oriented x3, Cooperative, No apparent distress, morbidly obese HEENT: Atraumatic, PERRLA, EOMI, Normocephalic Oral: Moist Mucosa Neck: Supple, No JVD Lungs: Diminished, Normal air movement, No rhonchi, No wheeze, No rales Cardiovascular: Regular rate, Regular Rhythm, Normal S1, Normal S2, No murmurs Abdomen: Soft, Non Tender, Non-Distended, No Hepato-splenomegaly Extremities: No edema, Capillary Refill Less than 3 Seconds Skin: No rashes, No breakdown Musculoskeletal: No Tenderness to Palpation of Joints or Extremities Neurological: Cranial nerves II-XII grossly intact, Motor Exam 5/5 strength throughout, Sensory exam intact to light touch and pain Psych/Mental Status: Flat affect, Appropriate Assessment & Plan Assessment/Plan (1) Unable to ambulate: (2) KERRY (acute kidney injury): (3) Metabolic encephalopathy: (4) Type 2 diabetes mellitus: QUALIFIERS: Diabetes mellitus residential insulin use: with residential use Diabetes mellitus complication status: with hyperosmolarity Diabetes mellitus complication detail: with coma Qualified Code(s): E11.01 - Type 2 diabetes mellitus with hyperosmolarity with coma; Z79.4 - intermediate manager (current) use of insulin (5) Essential hypertension: PLAN: Plan 1. KERRY on CKD 3a/acute metabolic encephalopathy/debility ? Jus encephalopathy is likely due to her acute renal failure ? Continue with IV fluids ? We will monitor renal function ? Attempting to verify her home medications ? PT/OT for evaluation 2. DM2/morbid obesity ? Continue with sliding scale insulin ? Accu-Cheks AC at bedtime ? We will make adjustment as necessary ? BMI of 60 3. COPD ? PCO2 is at baseline, she is slightly acidotic on ABG yesterday ? We will continue to encourage wearing her CPAP ? She did just complete a dose of steroids as well as a course of doxycycline she continues to have a leukocytosis we will monitor 4. HTN/HLD ? We will try to verify her home medications and restart her meds DVT: Lovenox Charges/Coding Visit Charges Inpatient E&M: 39061 Subs Hosp L2 12/19/22 7715 <Electronically signed by Liam Wilkes MD> Cosigner Signature (if applicable): CC: ~ Signed [facility] Work Phone: 1(505) 822-175501-19-2023 History and physical note Author Dr. Gill [facility] December 19, 2022 6:08am Note Date/Time December 18, 2022 1 1:45pm [facility] Medical Records Department [address] [place] [id number] H&P Exam - Hospitalist 12/18/22 7165 MR#: [id number] Acct: [id number] Name: MACARIO WALLACE Rep #:[id number] : 1975 47 From: Chris Gill MD PCP: Dr. Tino Oreilly MD Status :ADM IN Location: [facility] [id number] HPI - General General Date of Admission: 12/18/22 Date of Service: 12/19/22 Chief Complaint: Somnolence HPI Narrative MACARIO WALLACE, is a 47 F with a significant history of morbid obesity; diabetes mellitus; hypertension; and tobacco abuse who presents to emergency department with somnolence. Patient's family was called because patient was in bed all day. Reportedly patient family called paramedics to check on patient. When paramedics arrived patient refused to come to the emergency department. Patient's family later went to check on her and realized that patient could not walk. Paramedics were called and patient was brought to the emergency department. Patient uses 4 to 5 L nasal cannula oxygen orwero-avp-rmiun and CPAP at night tosleep. Reportedly patient did not use either her CPAP oxygen on the day of presentation. [facility] Medical History (Updated 12/19/22 @ 00:[address] Chris Gill MD) Abscess Abscess of vulva KERRY (acute kidney injury) Anxiety BiPAP (biphasic positive airway pressure) dependence Chronic diastolic (congestive) heart failure Chronic respiratory failure with hypoxia Contusion of knee, right COPD (chronic obstructive pulmonary disease) Depression Diabetes Dyspnea on exertion Essential hypertension GERD (gastroesophageal reflux disease) Hidradenitis History of left heart catheterization (LHC) (~01/05/19) History of MRSA infection Hyperglycemia due to type 2 diabetes mellitus Hyperlipidemia Hypertension Morbid obesity Necrotizing soft tissue infection Non-healing open wound of left groin NSTEMI (non-ST elevated myocardial infarction) 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 Old myocardial infarction On home oxygen therapy Open wound of vulva with complication Opiate overdose Pulmonary embolism Respiratory failure with hypoxia Restrictive lung disease secondary to obesity Sleep apnea Smoker Soft tissue abscess of inguinal region Tobacco abuse Type 2 diabetes mellitus Home Medications multivit-iron 18 mg-folic acid 400 mcg-calcium 500 mg-minerals tablet 1 ea PO DAILY supplement 03/26/17 [History Last Taken 12/09/22] omeprazole 40 mg capsule,delayed release 40 mg PO DAILY GERD 12/15/18 [History Last Taken 12/09/22] loratadine 10 mg tablet 10 mg PO DAILY PRN Allergies 03/01/20 [History Last Taken 12/09/22] apixaban 5 mg tablet 5 mg PO BID blood thinner 08/20/20 [History Last Taken 12/09/22] diltiazem HCl 120 mg capsule,extended release 24 hr 120 mg PO DAILY heart rate 08/20/20 [History Last Taken 12/09/22] lisinopril 10 mg tablet 10 mg PO DAILY blood pressure 03/26/21 [History Last Taken 12/09/22] metformin 500 mg tablet,extended release 24 hr 2,000 mg PO DAILY diabetes 03/26/21 [History Last Taken 01/15/22] metoprolol succinate 25 mg tablet,extended release 24 hr 25 mg PO DAILY blood pressure 03/26/21 [History Last Taken 12/09/22] dulaglutide 4.5 mg/0.5 mL subcutaneous pen injector (Trulicity) 4.5 mg subcut WEDM 01/15/22 [History Last Taken 12/05/22] atorvastatin 80 mg tablet 100 mg PO QHS 02/07/22 [History Last Taken 12/09/22] potassium chloride 20 mEq tablet,extended release 20 meq PO BID #60 tabs 07/25/22 [Rx Last Taken 12/09/22] furosemide 40 mg tablet 40 mg PO BID diuretic 09/22/22 [History Last Taken 12/09/22] ammonium lactate 12 % lotion 1 applic topical TID 30 days #400 grams 09/24/22 [Rx Last Taken 12/08/22] insulin degludec 200 unit/mL (3 mL) subcutaneous pen (Tresiba FlexTouch U-200 insulin) 95 unit (0.475 mL) subcut BID DM 30 days #28.5 mL 09/24/22 [Rx Last Taken 12/09/22] insulin lispro 100 unit/mL subcutaneous pen (Humalog KwikPen (U-100) Insulin) 50unit (0.5 mL) subcut TIDAC #0 mL 09/24/22 [Rx Last Taken 12/09/22] albuterol sulfate 2.5 mg/3 mL (0.083 %) solution for nebulization 2.5 mg inhalation Q4H PRN SOB 12/09/22 [History Last Taken 12/08/22] doxycycline monohydrate 100 mg capsule 100 mg PO BID #14 CAPSULES 12/09/22 [Rx Last Taken Unknown] empagliflozin 10 mg tablet (Jardiance) 10 mg PO DAILY DM 12/09/22 [History Last Taken 12/09/22] fenofibrate nanocrystallized 145 mg tablet 145 mg PO DAILY CHOLESTEROL 12/09/22 [History Last Taken 12/09/22] furosemide 20 mg tablet 20 mg PO DAILY diuretic 12/09/22 [History Last Taken Unknown] gabapentin 800 mg tablet 800 mg PO TID NERVE PAIN 12/09/22 [History Last Taken 12/09/22] insulin glargine U-300 conc 300 unit/mL (3 mL) subcutaneous pen (Toujeo Max U- 300 SoloStar) 150 unit subcut DAILY DM 12/09/22 [History Last Taken 12/09/22] nicotine (polacrilex) 2 mg buccal mini lozenge 2 mg PO PRN PRN Smoking Kdleilqfr85/09/23 [History Last Taken 12/08/22] prednisone 20 mg tablet 60 mg PO DAILY #12 TABLETS 12/09/22 [Rx Last Taken Unknown] Allergy/AdvReac Type Severity Reaction Status Date / Time cyclobenzaprine HCl Allergy Hives Verified 12/18/22 21:44 [From Flexeril] venlafaxine [From Effexor] AdvReac Severe unknown Verified 12/18/22 21:44 Family History Father CVA (cerebral vascular accident) Heart disease Diabetes Mother Thyroid disorder Surgical History H/O arthroscopic knee surgery History of delivery History of cholecystectomy Social History household members: none Smoking Status: Current some day smoker tobacco type: cigarettes how long ago did patient quit smokin PPD smoker second hand exposure: Yes alcohol intake: never substance use type: does not use caffeine: Yes Type: carbonated beverages Number of servings: 1 and coffee Number of servings: 1 ROS ROS Narrative Pertinent positives and pertinent negatives as noted in HPI. All other systems were reviewed and are negative Vital Signs Vital Signs Vital Signs: 12/18/22 21:35 Temperature 97.9 F Temperature Source Temporal Pulse Rate 100 Respiratory Rate 16 Blood Pressure 159/120 H Blood Pressure Mean 133 Pulse Ox 93 Oxygen Delivery Method Nasal Cannula Oxygen Flow Rate (L/min) 3 Weight Weight: 179.4 kg Body Mass Index (BMI) 61.9 Physical Exam Narrative Physical exam: General: Morbidly obese Head: Normocephalic, atraumatic, no tenderness Eyes: Vision is grossly intact. EOMI ENT, no trauma, dry mucous membranes, no rhinorrhea Neck: Nontender, No thyromegaly. CVS: Regular rate and rhythm. S1-S2 present. No murmur, gallop or rub. Respiratory : Diminished, chest wall nontender, no wheezing Abdomen: Soft, nontender, nondistended, normal bowel sounds, no masses : Deferred Back: Nontender, no CVA tenderness, no midline spinal tenderness, Extremities: Nontender full range of motion, no trauma Skin: Normal color, no trauma, abrasions Neuro: Alert, oriented, cranial nerves II through XII grossly intact. Psychiatry: Normal mood. Normal affect. Not depressed. Not anxious. Results Lab / Micro Data Result Diagrams: 12/18/22 22:23 12/18/22 22:23 Labs: Laboratory Results - last 24 hr 12/18/22 22:23: WBC 18.3 H, RBC 4.04 L, Hgb 11.5 L, Hct 37.4, MCV 92.6, MCH 28.5, MCHC 30.7 L, RDW Std Deviation 57.5 H, RDW Coeff of Darrion 16.8 H, Plt Count 251, MPV 10.0, Immature Gran % (Auto) 0.800, Neut % (Auto) 84.5 H, Lymph % (Auto) 8.9 L, Defiance % (Auto) 5.2, Eos % (Auto) 0.3, Baso % (Auto) 0.3, Absolute Neuts (auto) 15.5 H, Absolute Lymphs (auto) 1.63, Nucleated RBC % 0 12/18/22 22:23: Sodium 130 L, Potassium 5.6 H, Chloride 98, Carbon Dioxide 27.0,Anion Gap 5, BUN 80 H, Creatinine 2.37 H, Estim Creat Clear Calc 29.15, Est GFR (MDRD) Af Amer 28 L, Est GFR (MDRD) Non-Af 24 L, BUN/Creatinine Ratio 33.8 H, Glucose 171 H, Calcium 8.6, Troponin I High Sens 22 12/18/22 22:30: Urine Color Yellow, Urine Clarity Clear, Urine pH 6.0, Ur Specific Renick 1.010, Urine Protein Negative, Urine Glucose (UA) 250 H, Urine Ketones Negative, Urine Occult Blood Negative, Urine Nitrite Negative, Urine Bilirubin Negative, Urine Urobilinogen Normal, Ur Leukocyte Esterase Negative, Urine RBC 0 SEEN, Urine WBC 0 SEEN, Ur Squamous Epith Cells 0 SEEN, Urine Bacteria 1+, Urine Mucus 0 SEEN, Urine Yeast RARE ABG Data ABG results: ABG 12/18/22 22:43 Specimen Type ART Sample Site R Brach pH 7.30 L Bicarbonate Actual 26.7 H Total CO2 28 Base Excess 0 O2 Saturation 89 L ABG pCO2 53.7 H ABG pO2 63 L Anil Test Positive O2 Delivery Device Cannula Liter Flow 3.0 Radiology Impression Chest X-Ray 12/18/22 22:40 IMPRESSION: No radiographic evidence of acute cardiopulmonary disease. Electronically Signed: Leonides Lakhani MD at 22:59 EST , Assessment & Plan Assessment/Plan (1) Unable to ambulate: (2) KERRY (acute kidney injury): (3) Metabolic encephalopathy: (4) Type 2 diabetes mellitus: QUALIFIERS: Diabetes mellitus complication detail: with coma Diabetes mellitus complication status: with hyperosmolarity Diabetes mellitus residential insulin use: with intermediate teacher use Qualified Code(s): E11.01 - Type 2 diabetes mellitus with hyperosmolarity with coma; Z79.4 - intermediate manager (current) use of insulin (5) Essential hypertension: PLAN: Plan KERRY on chronic kidney disease stage IIIA CKD Likely from Diabetic nephropathy Baseline creatinine of ~1.3. Creatinine on admission was 2.37. BUN is 80. BUN over creatinine is 33.8. Likely secondary to dehydration. IV hydration ordered. Trend BMP. Avoid nephrotoxic's. Acute metabolic encephalopathy Likely secondary to uremia. IV fluid as above. Trend BMP. Hyponatremia Sodium of 130. Likely secondary to hypovolemia. IV fluid as above. Trend. Hyperkalemia Potassium on presentation was 5.6. Likely secondary to dehydration. IV hydration as above. Trend BMP. Diabetes mellitus with hyperglycemia Patient with mild hyperglycemia on presentation. Accu-Chek with correction scale insulin ordered. Debility/inability to ambulate PT notes work with patient. Case management consult. Morbid Obesity: BMI: 61kg/m?. Complicates care. Lifestyle modification recommended. Hypertension Erratic Trend blood pressures DVT prophylaxis Subcutaneous Lovenox ordered. Charges/Coding Visit Charges Inpatient E&M: 40914 Init Hosp L3 12/19/22 0023 <Electronically signed by Chris Gill MD> Cosigner Signature (if applicable): CC: Dr. Tino Oreilly MD; Dr. Chris Gill MD~ Signed ADDENDUM by Dr. Chris Gill MD on 12/19/22 at 0607 Addendum Chronic respiratory failure Stable 12/19/22 0608<Electronically signed by Chris Gill MD> Cosigner Signature (if applicable): cc: Dr. Tino Oreilly MD; Dr. Chris Gill MD ~* Signed [facility] Work Phone: [phone]) 908-106501-19-[address] Quintero [facility] December 19, 2022 12:03am Note Date/Time December 18, 2022 9 :58pm [facility] Medical Records Department [address] [place] [address] Emergency Department Summary 12/18/22 MR#: [id number] Acct: [id number] Name: MACARIO WALLACE Rep #:[id number] : 1975 47 From: Irina Quintero MD PCP: Dr. Tino Oreilly MD Status :ADM IN Location: [place] [address] HPI History of Present Illness Chief Complaint: Weakness Informant: patient and family Narrative Narrative: Patient presents secondary to generalized weakness and unable to ambulate. She has a history of COPD. She normally wears oxygen at 3 to 4 L. She supposed to wear CPAP also. Patient's roommate is paraplegic and was unable to get up to check on her today. They stated the patient was sleeping all day and family hadtrouble arousing her tonight. She fell asleep without her oxygen or CPAP on. EMS was called out to the house twice as she refused transport the first time. When she realized she was too weak to get up and walk she agreed to transport. [facility] Medical History Abscess Abscess of vulva KERRY (acute kidney injury) Anxiety BiPAP (biphasic positive airway pressure) dependence Chronic diastolic (congestive) heart failure Chronic respiratory failure with hypoxia Contusion of knee, right COPD (chronic obstructive pulmonary disease) Depression Diabetes Dyspnea on exertion Essential hypertension GERD (gastroesophageal reflux disease) Hidradenitis History of left heart catheterization (LHC) (~01/05/19) History of MRSA infection Hyperglycemia due to type 2 diabetes mellitus Hyperlipidemia Hypertension Morbid obesity Necrotizing soft tissue infection Non-healing open wound of left groin NSTEMI (non-ST elevated myocardial infarction) 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 Old myocardial infarction On home oxygen therapy Open wound of vulva with complication Opiate overdose Pulmonary embolism Respiratory failure with hypoxia Restrictive lung disease secondary to obesity Sleep apnea Smoker Soft tissue abscess of inguinal region Tobacco abuse Type 2 diabetes mellitus Home Medications multivit-iron 18 mg-folic acid 400 mcg-calcium 500 mg-minerals tablet 1 ea PO DAILY supplement 03/26/17 [History Last Taken 12/09/22] omeprazole 40 mg capsule,delayed release 40 mg PO DAILY GERD 12/15/18 [History Last Taken 12/09/22] loratadine 10 mg tablet 10 mg PO DAILY PRN Allergies 03/01/20 [History Last Taken 12/09/22] apixaban 5 mg tablet 5 mg PO BID blood thinner 08/20/20 [History Last Taken 12/09/22] diltiazem HCl 120 mg capsule,extended release 24 hr 120 mg PO DAILY heart rate 08/20/20 [History Last Taken 12/09/22] lisinopril 10 mg tablet 10 mg PO DAILY blood pressure 03/26/21 [History Last Taken 12/09/22] metformin 500 mg tablet,extended release 24 hr 2,000 mg PO DAILY diabetes 03/26/21 [History Last Taken 01/15/22] metoprolol succinate 25 mg tablet,extended release 24 hr 25 mg PO DAILY blood pressure 03/26/21 [History Last Taken 12/09/22] dulaglutide 4.5 mg/0.5 mL subcutaneous pen injector (Trulicity) 4.5 mg subcut WEDM 01/15/22 [History Last Taken 12/05/22] atorvastatin 80 mg tablet 100 mg PO QHS 02/07/22 [History Last Taken 12/09/22] potassium chloride 20 mEq tablet,extended release 20 meq PO BID #60 tabs 07/25/22 [Rx Last Taken 12/09/22] furosemide 40 mg tablet 40 mg PO BID diuretic 09/22/22 [History Last Taken 12/09/22] ammonium lactate 12 % lotion 1 applic topical TID 30 days #400 grams 09/24/22 [Rx Last Taken 12/08/22] insulin degludec 200 unit/mL (3 mL) subcutaneous pen (Tresiba FlexTouch U-200 insulin) 95 unit (0.475 mL) subcut BID DM 30 days #28.5 mL 09/24/22 [Rx Last Taken 12/09/22] insulin lispro 100 unit/mL subcutaneous pen (Humalog KwikPen (U-100) Insulin) 50unit (0.5 mL) subcut TIDAC #0 mL 09/24/22 [Rx Last Taken 12/09/22] albuterol sulfate 2.5 mg/3 mL (0.083 %) solution for nebulization 2.5 mg inhalation Q4H PRN SOB 12/09/22 [History Last Taken 12/08/22] doxycycline monohydrate 100 mg capsule 100 mg PO BID #14 CAPSULES 12/09/22 [Rx Last Taken Unknown] empagliflozin 10 mg tablet (Jardiance) 10 mg PO DAILY DM 12/09/22 [History Last Taken 12/09/22] fenofibrate nanocrystallized 145 mg tablet 145 mg PO DAILY CHOLESTEROL 12/09/22 [History Last Taken 12/09/22] furosemide 20 mg tablet 20 mg PO DAILY diuretic 12/09/22 [History Last Taken Unknown] gabapentin 800 mg tablet 800 mg PO TID NERVE PAIN 12/09/22 [History Last Taken 12/09/22] insulin glargine U-300 conc 300 unit/mL (3 mL) subcutaneous pen (Toujeo Max U- 300 SoloStar) 150 unit subcut DAILY DM 12/09/22 [History Last Taken 12/09/22] nicotine (polacrilex) 2 mg buccal mini lozenge 2 mg PO PRN PRN Smoking Sarcblwci18/09/23 [History Last Taken 12/08/22] prednisone 20 mg tablet 60 mg PO DAILY #12 TABLETS 12/09/22 [Rx Last Taken Unknown] Allergy/AdvReac Type Severity Reaction Status Date / Time cyclobenzaprine HCl Allergy Hives Verified 12/18/22 21:44 [From Flexeril] venlafaxine [From Effexor] AdvReac Severe unknown Verified 12/18/22 21:44 Family History Father CVA (cerebral vascular accident) Heart disease Diabetes Mother Thyroid disorder Surgical History H/O arthroscopic knee surgery History of delivery History of cholecystectomy Social History household members: none Smoking Status: Current some day smoker tobacco type: cigarettes how long ago did patient quit smokin PPD smoker second hand exposure: Yes alcohol intake: never substance use type: does not use caffeine: Yes Type: carbonated beverages Number of servings: 1 and coffee Number of servings: 1 ROS ROS ED Constitutional Constitutional ED: Denies chills or fever(s) Eyes Eyes: Denies change in vision or discharge from eye(s) ENT ENT ED: Denies discharge from eye(s), rhinorrhea or sore throat Cardiovascular Cardiovascular: Denies chest pain or palpitations Respiratory/Chest Respiratory/Chest: Denies cough or dyspnea Gastrointestinal Gastrointestinal: Denies abdominal pain, nausea or vomiting Genitourinary Genitourinary ED: Denies difficulty urinating or dysuria Musculoskeletal Musculoskeletal: Denies back pain or extremity pain Integumentary Denies Abrasions or rash Neurologic Neurologic: Reports weakness; Denies headache(s) Allergic/Immunologic Allergic/Immunologic ED: Denies lip swelling or urticaria EXAM Physical Exam Narrative Exam Narrative: Patient sitting upright in bed no acute distress. She is alert and answering questions appropriately. Const Vital Signs: 12/18/22 21:35 Temperature 97.9 F Temperature Source Temporal Pulse Rate 100 Respiratory Rate 16 Blood Pressure 159/120 H Blood Pressure Mean 133 Pulse Ox 93 Oxygen Delivery Method Nasal Cannula Oxygen Flow Rate (L/min) 3 Positive well nourished, well developed and obese General Appearance ED: well developed Nutritional Appearance: obese HEENT Reports normocephalic and head/scalp atraumatic Eyes PERRL and EOMs intact bilaterally Neck supple Chest Wall inspection of chest normal and palpation of chest normal Resp normal respiratory effort Resp Narrative: Diminished breath sounds bilateral bases. Cardio regular rate and regular rhythm GI normal to inspection, nondistended, normoactive bowel sounds Palpation: soft Extremity Extremity Narrative: Bilateral lower extremity edema, symmetric Neuro oriented x3 Neuro Narrative: No focal neurologic deficits. Generalized weakness noted. Moves all extremities. Sensorium / Orientation: alert Psych mental status grossly normal Skin no rashes or lesions noted MDM MDM MDM Narrative Medical decision making narrative: Patient is placed on cardiac nurse. EKG, chest x-ray, lab work obtained. Urinalysis obtained along with an ABG. Lab Data Attestation: I reviewed the patient's lab results. Labs: Laboratory Results - last 24 hr 12/18/22 12/18/22 12/18/22 22:23 22:23 22:30 WBC 18.3 H RBC 4.04 L Hgb 11.5 L Hct 37.4 MCV 92.6 MCH 28.5 MCHC 30.7 L RDW Std Deviation 57.5 H RDW Coeff of Darrion 16.8 H Plt Count 251 MPV 10.0 Immature Gran % (Auto) 0.800 Neut % (Auto) 84.5 H Lymph % (Auto) 8.9 L Defiance % (Auto) 5.2 Eos % (Auto) 0.3 Baso % (Auto) 0.3 Absolute Neuts (auto) 15.5 H Absolute Lymphs (auto) 1.63 Nucleated RBC % 0 Sodium 130 L Potassium 5.6 H Chloride 98 Carbon Dioxide 27.0 Anion Gap 5 BUN 80 H Creatinine 2.37 H Estim Creat Clear Calc 29.15 Est GFR (MDRD) Af Amer 28 L Est GFR (MDRD) Non-Af 24 L BUN/Creatinine Ratio 33.8 H Glucose 171 H Calcium 8.6 Troponin I High Sens 22 Urine Color Yellow Urine Clarity Clear Urine pH 6.0 Ur Specific Renick 1.010 Urine Protein Negative Urine Glucose (UA) 250 H Urine Ketones Negative Urine Occult Blood Negative Urine Nitrite Negative Urine Bilirubin Negative Urine Urobilinogen Normal Ur Leukocyte Esterase Negative Urine RBC 0 SEEN Urine WBC 0 SEEN Ur Squamous Epith Cells 0 SEEN Urine Bacteria 1+ Urine Mucus 0 SEEN Urine Yeast RARE ABG Data ABG results: ABG 12/18/22 22:43 Specimen Type ART Sample Site R Brach pH 7.30 L Bicarbonate Actual 26.7 H Total CO2 28 Base Excess 0 O2 Saturation 89 L ABG pCO2 53.7 H ABG pO2 63 L Anil Test Positive O2 Delivery Device Cannula Liter Flow 3.0 Radiography Chest X-Ray - ED: 1 View, Read by ED Physician and Chronic Changes Diagnostic Testing: Clinical Impression(s) from Imaging Studies Chest X-Ray 12/18/22 22:40 IMPRESSION: No radiographic evidence of acute cardiopulmonary disease. Electronically Signed: Leonides Lakhani MD at 22:59 EST , EKG Initial EKG: Attestation: I personally reviewed and interpreted this EKG as follows: Interpretation: Sinus Rhythm (Sinus at 99 with no acute ischemia.) Treatment and Re-Evaluation Narrative: CBC reveals elevated white count at 18.3 with 84% neutrophils. Patient denies fever or chills. She is just finishing up a course of antibiotics for bronchitis and was on a steroid burst. Chemistry studies are significant for sodium low at 130 and a chloride of 98. Potassium is elevated at 5.6. BUN is 80 and creatinine is 2.37. This is compared to a creatinine of 0.97 nine days ago. Urinalysis reveals no evidence of acute infection. Chest x-ray per my interpretation reveals no obvious infiltrate. Radiology interpretation is reviewed. EKG is sinus with no acute ischemia. ABG was obtained. pH is 7.30, PCO2 is 53, PO2 of 63, pulse ox is 89% on 3 L nasal cannula. Patient is to wear CPAP with sleep. At this time she is alert and answering questions appropriately. IV fluids have been initiated. With patient unable to ambulate or care for herself also the hospitalist regarding admission for treatment of KERRY as well as her inability to ambulate. Discharge Plan Triage Chief Complaint: Weakness ED Provider: Irina Quintero Dx/Rx/DC Orders Clinical Impression: KERRY (acute kidney injury), Unable to ambulate Prescriptions: No Action loratadine 10 mg tablet 10 mg PO DAILY PRN (Reason: Allergies) lisinopril 10 mg tablet 10 mg PO DAILY Label Comments: TAKE 1 TABLET BY MOUTH EVERY DAY metformin 500 mg tablet extended release 24 hr 2,000 mg PO DAILY metoprolol succinate 25 mg tablet extended release 24 hr 25 mg PO DAILY Label Comments: TAKE 1 TABLET BY MOUTH EVERY DAY atorvastatin 80 mg tablet 100 mg PO QHS nlhjwpez-[id number]-BH-calcium-mins 1 EACH tablet 1 ea PO DAILY Label Comments: vitamin omeprazole 40 MG capsule,delayed release(DR/EC) 40 mg PO DAILY diltiazem HCl 120 MG capsule 120 mg PO DAILY apixaban 5 MG tablet 5 mg PO BID Trulicity 4.5 mg/0.5 mL pen injector 4.5 mg SUBCUT WE Label Comments: Inject 4.5 mg subcutaneously one time a week. furosemide 40 mg tablet 40 mg PO BID Label Comments: Take 1 tablet by mouth twice daily. insulin lispro [Humalog KwikPen Insulin] 100 unit/mL Insulin Pen 50 unit subcut TIDAC Qty: 0 0RF ammonium lactate 12 % Lotion 1 applic topical TID 30 Days Qty: 400 0RF Protocol: *Topical Application Instructions APPLICATION INSTRUCTIONS: apply to both legs andaffected dry areas of the body insulin degludec [Tresiba FlexTouch U-200] 200 unit/mL (3 mL) insulin pen 95 unit SUBCUT BID 30 Days Qty: 28.5 0RF Label Comments: INJECT 100 UNITS SUBCUTANEOUSLY TWICE DAILY (this replaces levemir) albuterol sulfate 2.5 mg /3 mL (0.083 %) solution for nebulization 2.5 mg inhalation Q4H PRN (Reason: SOB) gabapentin 800 mg tablet 800 mg PO TID furosemide 20 mg tablet 20 mg PO DAILY fenofibrate nanocrystallized 145 mg tablet 145 mg PO DAILY Jardiance 10 mg tablet 10 mg PO DAILY nicotine (polacrilex) 2 mg mini lozenge 2 mg PO PRN PRN (Reason: Smoking Cessation) Toujeo Max U-300 SoloStar 300 unit/mL (3 mL) insulin pen 150 unit SUBCUT DAILY prednisone 20 mg tablet 60 mg PO DAILY Qty: 12 0RF doxycycline monohydrate 100 mg capsule 100 mg PO BID Qty: 14 0RF potassium chloride 20 mEq tablet extended release 20 meq PO BID Qty: 60 11RF Primary Care Provider: Tino Oreilly Referrals: Tino Oreilly MD [Primary Care Provider] - Disposition Disposition: Acute Care Hospital [facility] What to do if you have Problems For any increased pain, shortness of breath, bleeding, nausea or vomiting, chestpain, or any unexpected problems, contact your Primary Care Provider. Call [facility] ([phone]) or report to the closest Emergency Room. Call 911 if necessary. 12/19/22 0003 <Electronically signed by Irina Quintero MD> Cosigner Signature (if applicable): CC: Dr. Tino Oreilly MD ~ Signed [facility] Work Phone: [phone] 669-155001-18-[address] Quintero [facility] December 19, 2022 12:03am Note Date/Time December 18, 2022 9 :58pm [facility] Medical Records Department [address] [place] [address] Emergency Department Summary 12/18/22 MR#: [id number] Acct: [id number] Name: MACARIO WALLACE Rep #:[id number] : 1975 47 From: Irina Quintero MD PCP: Dr. Tino Oreilly MD Status :ADM IN Location: [address] History of Present Illness Chief Complaint: Weakness Informant: patient and family Narrative Narrative: Patient presents secondary to generalized weakness and unable to ambulate. She has a history of COPD. She normally wears oxygen at 3 to 4 L. She supposed to wear CPAP also. Patient's roommate is paraplegic and was unable to get up to check on her today. They stated the patient was sleeping all day and family hadtrouble arousing her tonight. She fell asleep without her oxygen or CPAP on. EMS was called out to the house twice as she refused transport the first time. When she realized she was too weak to get up and walk she agreed to transport. [facility] Medical History Abscess Abscess of vulva KERRY (acute kidney injury) Anxiety BiPAP (biphasic positive airway pressure) dependence Chronic diastolic (congestive) heart failure Chronic respiratory failure with hypoxia Contusion of knee, right COPD (chronic obstructive pulmonary disease) Depression Diabetes Dyspnea on exertion Essential hypertension GERD (gastroesophageal reflux disease) Hidradenitis History of left heart catheterization (LHC) (~01/05/19) History of MRSA infection Hyperglycemia due to type 2 diabetes mellitus Hyperlipidemia Hypertension Morbid obesity Necrotizing soft tissue infection Non-healing open wound of left groin NSTEMI (non-ST elevated myocardial infarction) 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 Old myocardial infarction On home oxygen therapy Open wound of vulva with complication Opiate overdose Pulmonary embolism Respiratory failure with hypoxia Restrictive lung disease secondary to obesity Sleep apnea Smoker Soft tissue abscess of inguinal region Tobacco abuse Type 2 diabetes mellitus Home Medications multivit-iron 18 mg-folic acid 400 mcg-calcium 500 mg-minerals tablet 1 ea PO DAILY supplement 03/26/17 [History Last Taken 12/09/22] omeprazole 40 mg capsule,delayed release 40 mg PO DAILY GERD 12/15/18 [History Last Taken 12/09/22] loratadine 10 mg tablet 10 mg PO DAILY PRN Allergies 03/01/20 [History Last Taken 12/09/22] apixaban 5 mg tablet 5 mg PO BID blood thinner 08/20/20 [History Last Taken 12/09/22] diltiazem HCl 120 mg capsule,extended release 24 hr 120 mg PO DAILY heart rate 08/20/20 [History Last Taken 12/09/22] lisinopril 10 mg tablet 10 mg PO DAILY blood pressure 03/26/21 [History Last Taken 12/09/22] metformin 500 mg tablet,extended release 24 hr 2,000 mg PO DAILY diabetes 03/26/21 [History Last Taken 01/15/22] metoprolol succinate 25 mg tablet,extended release 24 hr 25 mg PO DAILY blood pressure 03/26/21 [History Last Taken 12/09/22] dulaglutide 4.5 mg/0.5 mL subcutaneous pen injector (Trulicity) 4.5 mg subcut WEDM 01/15/22 [History Last Taken 12/05/22] atorvastatin 80 mg tablet 100 mg PO QHS 02/07/22 [History Last Taken 12/09/22] potassium chloride 20 mEq tablet,extended release 20 meq PO BID #60 tabs 07/25/22 [Rx Last Taken 12/09/22] furosemide 40 mg tablet 40 mg PO BID diuretic 09/22/22 [History Last Taken 12/09/22] ammonium lactate 12 % lotion 1 applic topical TID 30 days #400 grams 09/24/22 [Rx Last Taken 12/08/22] insulin degludec 200 unit/mL (3 mL) subcutaneous pen (Tresiba FlexTouch U-200 insulin) 95 unit (0.475 mL) subcut BID DM 30 days #28.5 mL 09/24/22 [Rx Last Taken 12/09/22] insulin lispro 100 unit/mL subcutaneous pen (Humalog KwikPen (U-100) Insulin) 50unit (0.5 mL) subcut TIDAC #0 mL 09/24/22 [Rx Last Taken 12/09/22] albuterol sulfate 2.5 mg/3 mL (0.083 %) solution for nebulization 2.5 mg inhalation Q4H PRN SOB 12/09/22 [History Last Taken 12/08/22] doxycycline monohydrate 100 mg capsule 100 mg PO BID #14 CAPSULES 12/09/22 [Rx Last Taken Unknown] empagliflozin 10 mg tablet (Jardiance) 10 mg PO DAILY DM 12/09/22 [History Last Taken 12/09/22] fenofibrate nanocrystallized 145 mg tablet 145 mg PO DAILY CHOLESTEROL 12/09/22 [History Last Taken 12/09/22] furosemide 20 mg tablet 20 mg PO DAILY diuretic 12/09/22 [History Last Taken Unknown] gabapentin 800 mg tablet 800 mg PO TID NERVE PAIN 12/09/22 [History Last Taken 12/09/22] insulin glargine U-300 conc 300 unit/mL (3 mL) subcutaneous pen (Toujeo Max U- 300 SoloStar) 150 unit subcut DAILY DM 12/09/22 [History Last Taken 12/09/22] nicotine (polacrilex) 2 mg buccal mini lozenge 2 mg PO PRN PRN Smoking Akqzfcuma98/09/23 [History Last Taken 12/08/22] prednisone 20 mg tablet 60 mg PO DAILY #12 TABLETS 12/09/22 [Rx Last Taken Unknown] Allergy/AdvReac Type Severity Reaction Status Date / Time cyclobenzaprine HCl Allergy Hives Verified 12/18/22 21:44 [From Flexeril] venlafaxine [From Effexor] AdvReac Severe unknown Verified 12/18/22 21:44 Family History Father CVA (cerebral vascular accident) Heart disease Diabetes Mother Thyroid disorder Surgical History H/O arthroscopic knee surgery History of delivery History of cholecystectomy Social History household members: none Smoking Status: Current some day smoker tobacco type: cigarettes how long ago did patient quit smokin PPD smoker second hand exposure: Yes alcohol intake: never substance use type: does not use caffeine: Yes Type: carbonated beverages Number of servings: 1 and coffee Number of servings: 1 ROS ROS ED Constitutional Constitutional ED: Denies chills or fever(s) Eyes Eyes: Denies change in vision or discharge from eye(s) ENT ENT ED: Denies discharge from eye(s), rhinorrhea or sore throat Cardiovascular Cardiovascular: Denies chest pain or palpitations Respiratory/Chest Respiratory/Chest: Denies cough or dyspnea Gastrointestinal Gastrointestinal: Denies abdominal pain, nausea or vomiting Genitourinary Genitourinary ED: Denies difficulty urinating or dysuria Musculoskeletal Musculoskeletal: Denies back pain or extremity pain Integumentary Denies Abrasions or rash Neurologic Neurologic: Reports weakness; Denies headache(s) Allergic/Immunologic Allergic/Immunologic ED: Denies lip swelling or urticaria EXAM Physical Exam Narrative Exam Narrative: Patient sitting upright in bed no acute distress. She is alert and answering questions appropriately. Const Vital Signs: 12/18/22 21:35 Temperature 97.9 F Temperature Source Temporal Pulse Rate 100 Respiratory Rate 16 Blood Pressure 159/120 H Blood Pressure Mean 133 Pulse Ox 93 Oxygen Delivery Method Nasal Cannula Oxygen Flow Rate (L/min) 3 Positive well nourished, well developed and obese General Appearance ED: well developed Nutritional Appearance: obese HEENT Reports normocephalic and head/scalp atraumatic Eyes PERRL and EOMs intact bilaterally Neck supple Chest Wall inspection of chest normal and palpation of chest normal Resp normal respiratory effort Resp Narrative: Diminished breath sounds bilateral bases. Cardio regular rate and regular rhythm GI normal to inspection, nondistended, normoactive bowel sounds Palpation: soft Extremity Extremity Narrative: Bilateral lower extremity edema, symmetric Neuro oriented x3 Neuro Narrative: No focal neurologic deficits. Generalized weakness noted. Moves all extremities. Sensorium / Orientation: alert Psych mental status grossly normal Skin no rashes or lesions noted MDM MDM MDM Narrative Medical decision making narrative: Patient is placed on cardiac nurse. EKG, chest x-ray, lab work obtained. Urinalysis obtained along with an ABG. Lab Data Attestation: I reviewed the patient's lab results. Labs: Laboratory Results - last 24 hr 12/18/22 12/18/22 12/18/22 22:23 22:23 22:30 WBC 18.3 H RBC 4.04 L Hgb 11.5 L Hct 37.4 MCV 92.6 MCH 28.5 MCHC 30.7 L RDW Std Deviation 57.5 H RDW Coeff of Darrion 16.8 H Plt Count 251 MPV 10.0 Immature Gran % (Auto) 0.800 Neut % (Auto) 84.5 H Lymph % (Auto) 8.9 L Defiance % (Auto) 5.2 Eos % (Auto) 0.3 Baso % (Auto) 0.3 Absolute Neuts (auto) 15.5 H Absolute Lymphs (auto) 1.63 Nucleated RBC % 0 Sodium 130 L Potassium 5.6 H Chloride 98 Carbon Dioxide 27.0 Anion Gap 5 BUN 80 H Creatinine 2.37 H Estim Creat Clear Calc 29.15 Est GFR (MDRD) Af Amer 28 L Est GFR (MDRD) Non-Af 24 L BUN/Creatinine Ratio 33.8 H Glucose 171 H Calcium 8.6 Troponin I High Sens 22 Urine Color Yellow Urine Clarity Clear Urine pH 6.0 Ur Specific Renick 1.010 Urine Protein Negative Urine Glucose (UA) 250 H Urine Ketones Negative Urine Occult Blood Negative Urine Nitrite Negative Urine Bilirubin Negative Urine Urobilinogen Normal Ur Leukocyte Esterase Negative Urine RBC 0 SEEN Urine WBC 0 SEEN Ur Squamous Epith Cells 0 SEEN Urine Bacteria 1+ Urine Mucus 0 SEEN Urine Yeast RARE ABG Data ABG results: ABG 12/18/22 22:43 Specimen Type ART Sample Site R Brach pH 7.30 L Bicarbonate Actual 26.7 H Total CO2 28 Base Excess 0 O2 Saturation 89 L ABG pCO2 53.7 H ABG pO2 63 L Anil Test Positive O2 Delivery Device Cannula Liter Flow 3.0 Radiography Chest X-Ray - ED: 1 View, Read by ED Physician and Chronic Changes Diagnostic Testing: Clinical Impression(s) from Imaging Studies Chest X-Ray 12/18/22 22:40 IMPRESSION: No radiographic evidence of acute cardiopulmonary disease. Electronically Signed: Leonides Lakhani MD at 22:59 EST , EKG Initial EKG: Attestation: I personally reviewed and interpreted this EKG as follows: Interpretation: Sinus Rhythm (Sinus at 99 with no acute ischemia.) Treatment and Re-Evaluation Narrative: CBC reveals elevated white count at 18.3 with 84% neutrophils. Patient denies fever or chills. She is just finishing up a course of antibiotics for bronchitis and was on a steroid burst. Chemistry studies are significant for sodium low at 130 and a chloride of 98. Potassium is elevated at 5.6. BUN is 80 and creatinine is 2.37. This is compared to a creatinine of 0.97 nine days ago. Urinalysis reveals no evidence of acute infection. Chest x-ray per my interpretation reveals no obvious infiltrate. Radiology interpretation is reviewed. EKG is sinus with no acute ischemia. ABG was obtained. pH is 7.30, PCO2 is 53, PO2 of 63, pulse ox is 89% on 3 L nasal cannula. Patient is to wear CPAP with sleep. At this time she is alert and answering questions appropriately. IV fluids have been initiated. With patient unable to ambulate or care for herself also the hospitalist regarding admission for treatment of KERRY as well as her inability to ambulate. Discharge Plan Triage Chief Complaint: Weakness ED Provider: Irina Quintero Dx/Rx/DC Orders Clinical Impression: KERRY (acute kidney injury), Unable to ambulate Prescriptions: No Action loratadine 10 mg tablet 10 mg PO DAILY PRN (Reason: Allergies) lisinopril 10 mg tablet 10 mg PO DAILY Label Comments: TAKE 1 TABLET BY MOUTH EVERY DAY metformin 500 mg tablet extended release 24 hr 2,000 mg PO DAILY metoprolol succinate 25 mg tablet extended release 24 hr 25 mg PO DAILY Label Comments: TAKE 1 TABLET BY MOUTH EVERY DAY atorvastatin 80 mg tablet 100 mg PO QHS pgsdroxz-kfgi-WQ-calcium-mins 1 EACH tablet 1 ea PO DAILY Label Comments: vitamin omeprazole 40 MG capsule,delayed release(DR/EC) 40 mg PO DAILY diltiazem HCl 120 MG capsule 120 mg PO DAILY apixaban 5 MG tablet 5 mg PO BID Trulicity 4.5 mg/0.5 mL pen injector 4.5 mg SUBCUT WE Label Comments: Inject 4.5 mg subcutaneously one time a week. furosemide 40 mg tablet 40 mg PO BID Label Comments: Take 1 tablet by mouth twice daily. insulin lispro [Humalog KwikPen Insulin] 100 unit/mL Insulin Pen 50 unit subcut TIDAC Qty: 0 0RF ammonium lactate 12 % Lotion 1 applic topical TID 30 Days Qty: 400 0RF Protocol: *Topical Application Instructions APPLICATION INSTRUCTIONS: apply to both legs andaffected dry areas of the body insulin degludec [Tresiba FlexTouch U-200] 200 unit/mL (3 mL) insulin pen 95 unit SUBCUT BID 30 Days Qty: 28.5 0RF Label Comments: INJECT 100 UNITS SUBCUTANEOUSLY TWICE DAILY (this replaces levemir) albuterol sulfate 2.5 mg /3 mL (0.083 %) solution for nebulization 2.5 mg inhalation Q4H PRN (Reason: SOB) gabapentin 800 mg tablet 800 mg PO TID furosemide 20 mg tablet 20 mg PO DAILY fenofibrate nanocrystallized 145 mg tablet 145 mg PO DAILY Jardiance 10 mg tablet 10 mg PO DAILY nicotine (polacrilex) 2 mg mini lozenge 2 mg PO PRN PRN (Reason: Smoking Cessation) Toujeo Max U-300 SoloStar 300 unit/mL (3 mL) insulin pen 150 unit SUBCUT DAILY prednisone 20 mg tablet 60 mg PO DAILY Qty: 12 0RF doxycycline monohydrate 100 mg capsule 100 mg PO BID Qty: 14 0RF potassium chloride 20 mEq tablet extended release 20 meq PO BID Qty: 60 11RF Primary Care Provider: Tino Oreilly Referrals: Tino Oreilly MD [Primary Care Provider] - Disposition Disposition: Acute Care Hospital [facility] What to do if you have Problems For any increased pain, shortness of breath, bleeding, nausea or vomiting, chestpain, or any unexpected problems, contact your Primary Care Provider. Call [facility] ([phone]) or report to the closest Emergency Room. Call 911 if necessary. 12/19/22 0003 <Electronically signed by Irina Quintero MD> Cosigner Signature (if applicable): CC: Dr. Tino Oreilly MD ~ Signed [facility] Work Phone: [phone] Miscellaneous Notes* Telephone Encounter - Robert Sanchez, [facility] - 12/13/2022 9:08 AM EST PharmD [...] office if issues getting Ozempic approved. Discussed potential for GI side effects and advised to call office if having any issues. Informed her GI side effectscan be common but usually go away with time. PharmD f/up already scheduled for 01/02. The following approved medication requests have been transmitted electronically. Requested Prescriptions Signed Prescriptions Disp Refills semaglutide (OZEMPIC) 1 mg/dose (4 mg/3 mL) pen 3 mL 5 Sig: Inject 1 mg subcutaneously one time a week. This REPLACES Trulicity. Authorizing Provider: PANFILO OREILLY Ordering User: ROBERT SANCHEZ RPh * Telephone Encounter - Christi Barney RN - [...] know. Christi Barney RN documented in this encounterCleveland Clinic Foundation01-12-2023 Miscellaneous Notes* Telephone Encounter - Irina Soriano - 12/12/2022 9:42 AM EST Patient has [...] and advise. Irina Soriano documented in this encounterCleveland Clinic Foundation01-05-2023 Miscellaneous Notes* Telephone Encounter - Robert Michael Sanchez - 12/05/2022 11:32 AM EST Patient no-showed to PharmD visit this morning at 11 AM. Called patient, she was home and forgot about appt. Rescheduled appt for early January. States she does not have Freestyle Bao 14 day reader, she lost it. Can't find it. Has a glucometer but not testing. Glucometer is white, she can't find it right now. Rescheduled appt for 01/02. Will reorder reader but informed patient insurance would likely not coveranother reader since usually an order is accepted every 3 years. Advised her to locate her current glucometer and call office back with exact name/brand so I can order test strips accordingly. She agreed to do so. Will send strips to [facility] at her request. Robert Sanchez PharmD, [facility] Primary Care Clinical Pharmacist documented in this encounterCleveland Clinic Foundation12-28-2022 Miscellaneous Notes* Telephone Encounter - Annie Neville - 11/27/2022 5:00 PM EST PATIENT REPORTS THAT HER BAO HAS FALLEN OUT OF HER ARM Patient has been identified by name and date of : Yes, Provider OZZY Patient phones for refill(s): Requested Prescriptions Pending Prescriptions Disp Refills blood sugar diagnostic (FREESTYLE PRECISION JONAH STRIPS) test strip 200 Strip 3 Sig: [...] Thank you. Annie Neville documented in this encounterCleveland Clinic Foundation12-12-2022 Miscellaneous Notes* Telephone Encounter - Mariam Meredith RN - 11/11/2022 4:30 PM EST Patient returned call and given provider's message below with verbalized understanding. * Telephone Encounter - Mehrdad Michael RN - 11/11/2022 4:16 PM EST Pt does not have a voicemail set up will have to call back later. * Telephone Encounter - Panfilo Oreilly MD - 11/11/2022 3:16 PM EST Repeat kidney function has improved, but is still down compared to her normal. I do not think she needs to go into the hopsital for IV hydration or monitoring. Would have her cut her lasix down to 40mg BID for the next 3 days, then restart back at 80 mg BID. Should avoid NSAIDs completely. Gently increase her water intake so her urine is light yellow in color, but she is not getting new swellingin her legs. Recheck kidney function in 1 week. * Telephone Encounter - Lula Sarmiento LPN - 11/11/2022 12:37 PM EST Phoned patient and updated her with provider's message. She voiced understanding and stated she would try to find a ride so she can get in to lab today. * Telephone Encounter - Lula Sarmiento LPN - 11/11/2022 8:47 AM EST Attempted to call patient and there was no answer and message stated her VM hasn't been set up yet.Will attempt call back. * Telephone Encounter - Panfilo Oreilly MD - [...] today so we can see if this isimproving. If worsening, she may need to go back to the hospital for IV hydration and monitoring tomake sure her function returns to normal. documented in this encounterCleveland Clinic Foundation12-09-2022 History of Present illness Narrative* Panfilo Oreilly MD - 11/08/2022 11:40 AM EST Chief Complaint Patient presents with: Recheck: 4 week follow up HPI Macario Wallace is a 47 year old female who presents here today for Above Complaints. Noted patient was back in the ED on 11/01 for strep throat and reactive airway disease. Treated withIV solumedrol while in the ED and sent [...] Requesting hospital bed and scooter to help her get around. Complaining of tremor/twitching in her arms [...] diastolic heart failure (HCC) 01/2022 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[facility]) 07/2019 Left, small lesion on CT Anxiety Cholecystitis s/p cholecystectomy Diabetes mellitus without mention of complication Diabetic neuropathy ([facility]) Seeing Neurology Diastolic heart failure ([facility]) GERD (gastroesophageal reflux disease) History of abnormal cervical Pap smear History of tobacco use Hyperlipidemia Insomnia Microalbuminuria Morbid obesity ([facility]) Narcotic abuse ([facility]) Non-STEMI (non-ST elevated myocardial infarction) ([facility]) 2/2 respiratory illness LOGAN (obstructive sleep apnea) using CPAP, Dr. Dumont Pulmonary embolism ([facility]) Seasonal allergies Unspecified essential hypertension Previous Surgical History PAST SURGICAL HISTORY Procedure Laterality Date ANALGESIA,EPIDURAL,LABOR & 1994 INCISION & DRAINAGE ABSCESS COMPLICATED/MULTIPLE 04/07/14 LAPS SURG CHOLECYSTECTOMY W/CHOLANGIOGRAPHY 11/04/2007 PAST SURGICAL HISTORY OF Left 2007 arthroscopic knee surgery PAST SURGICAL HISTORY OF 1995 LEE Family History FAMILY HISTORY Problem Relation Age [...] Inject 50 units plus sliding scale three timesdaily before [...] tablet by mouth daily with breakfast. Insulin Corea, Disposable, (BD ULTRA-FINE GABINO PEN NEEDLE) 32 gauge x 5/32" Inject 1 Each subcutaneously four times daily. [...] insulin: yes blood sugar diagnostic (FREESTYLE PRECISION JONAH STRIPS) test strip To use 4 times daily to monitor glucose. Dx: uncontrolled type II DM, on insulin dilTIAZem CD (CARDIZEM CD) 120 mg 24 hr capsule Take 1 capsule by mouth once daily. famotidine (PEPCID) 20 mg tablet Take 1 tablet by mouth at bedtime as needed. flash glucose scanning reader (InsureWorxSTYLE BAO 14 DAY READER) 1 Device four times daily. fenofibrate nanocrystallized (TRICOR) 145 mg tablet Take 1 tablet by mouth once daily. flash glucose sensor (FREESTYLE BAO 14 DAY SENSOR) kit 1 Each once [...] mouth once daily. WALKER ROLLATOR SEAT WITH 6" WHEELS - RED Patient requires large seat [...] Bowel sounds normal. No masses, organomegaly. Extremities: Tushar wraps in place per podiatry. No edema. [...] Abs Lymph 1.00 - 4.00 k/uL 1.57 Defiance% % 4.3 Abs Defiance <0.87 k/uL 0.38 Eosin% % 2.8 Abs [...] acute exacerbation, unspecified asthma severity, unspecified whether persistent - ICD9: 493.92, ICD10: J45.901 Improved after prednisone burst. Patient is on 4 L oxygen via [place] continuously. Needs to quit smoking and schedule follow up visit with her ore miner at [facility]. 3. Tremor - ICD9: 781.0, ICD10: R25.1 Unknown cause for her tremor. Exacerbated with activity. Will obtain EEG and refer to neurology. Previous electrolytes, mag and phos, were normal when evaluating potential cause. Recheck CMP today. Red flags for re-assessment reviewed with patient [...] to monitor renal function. Red flags for re-assessment reviewed with patient in detail. - COMP METABOLIC PANEL 8. Dehydration - ICD9: 276.51, ICD10: E86.0 See above. I spent a total of 45 minutes on the date of the service which included preparing to see the patient, [id number] patient care, completing clinical documentation, obtaining and/or reviewing separately obtained history, performing a medically appropriate examination, counseling and educating the pat ient/family/caregiver, and ordering medications, tests, or procedures. Panfilo Oreilly MD documented in this encounterCleveland Clinic Foundation12-07-2022 History of Present illness Narrative* Mehrdad Yoder RN - 11/06/2022 11:58 AM EST Patient's wound dressed with Bacitracin, adaptic, gauze and tushar wrap at this time per Dr. Mosley.Wound care reviewed with patient, no questions at this time. * Minesh Mosley - 11/06/2022 11:24 AM EST Images from the original note were not included. Subjective: This 47 year old female presents to clinic for diabetic foot check. Patient has the following complaints: painful toenails. Patient states that she has hard time getting down to take careof her toes Patient admits to being diabetic for 27 years now. Patient +B/T/N in feet at this time.Patient -pain in legs when walking. No other [...] right groin 04/07/2014 Acute diastolic heart failure ([facility]) 01/2022 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[facility]) 07/2019 Left, small lesion on CT Anxiety Cholecystitis s/p cholecystectomy Diabetes mellitus without mention of complication Diabetic neuropathy ([facility]) Seeing Neurology Diastolic heart failure ([facility]) GERD (gastroesophageal reflux disease) History of abnormal cervical Pap smear History of tobacco use Hyperlipidemia Insomnia Microalbuminuria Morbid obesity ([facility]) Narcotic abuse ([facility]) Non-STEMI (non-ST elevated myocardial infarction) ([facility]) 2/2 respiratory illness LOGAN (obstructive sleep apnea) using CPAP, Dr. Dumont Pulmonary embolism ([facility]) Seasonal allergies Unspecified essential hypertension Current Outpatient Medications Medication Sig insulin glargine U-300 conc (TOUJEO MAX U-300 SOLOSTAR) 300 unit/mL (3 mL) inpn Inject 105 Units subcutaneously twice daily. insulin lispro (HUMALOG KWIKPEN INSULIN) 100 unit/mL Inject 50 units plus sliding scale three timesdaily before [...] tablet by mouth daily with breakfast. Insulin Corea, Disposable, (BD ULTRA-FINE GABINO PEN NEEDLE) 32 gauge x 5/32" Inject 1 Each subcutaneously four times daily. [...] insulin: yes blood sugar diagnostic (FREESTYLE PRECISION JONAH STRIPS) test strip To use 4 times daily to monitor glucose. Dx: uncontrolled type II DM, on insulin dilTIAZem CD (CARDIZEM CD) 120 mg 24 hr capsule Take 1 capsule by mouth once daily. famotidine (PEPCID) 20 mg tablet Take 1 tablet by mouth at bedtime as needed. flash glucose scanning reader (FREESTYLE BAO 14 DAY READER) 1 Device four times daily. fenofibrate nanocrystallized (TRICOR) 145 mg tablet Take 1 tablet by mouth once daily. flash glucose sensor (FREESTYLE BAO 14 DAY SENSOR) kit 1 Each once [...] mouth once daily. WALKER ROLLATOR SEAT WITH 6" WHEELS - RED Patient requires large seat [...] BID for lower extremity edema (Patient not taking:Reported on 11/06/2022) cholecalciferol, Vitamin D3, (VITAMIN D3) [...] Objective: Patient presents to clinic ambulating in [facility] Constitutional: Pt is a well developed 47 year old female who is alert, oriented, cooperative and in no apparent distress. Eyes: Following during examination. No [...] Skin is ruborous b/l. Non-Invasive Vascular Laboratory [facility] Lower Extremity Arterial Physiology Study Bilateral/Complete Date of service/time: 02/16/2021 10:10:16 AM Name: MS. MACARIO WALLACE Date of : 1975 Age: 45 years [...] ankle: Normal at rest. Technologist: Patty Pitts RVT, RDIL Ordering physician: PANFILO OREILLY Interpreting physician: BEV Long DO Neuro: Protective sensation is absent to the foot and toes when tested with the 5.07 SWM bilateral.Vibratory sensation is absent at the hallux bilateral. [...] and decreased with knee flexed. No pain or crepitus noted. STJ, MTJ ROM are full and [...] associated with Lamisil. We discussed removal of toenails.Could consider removal of toenail but would recommend she stop smoking and I would repeat pvr prior. Toenails 1-5 b/l debrided in length and thickness. 4. Will prescribe lotion for neuropathy and callus. This was prescribed in 2019 and this helped. Callus was reduced with dremmel. Diabetic shoe ordered 5. Discussed new ulceration of right leg. Recommend tushar wrap and topical antibiotic and adaptic. F/u in 2 months 6. Smoking cessation encouraged. Minesh Mosley DPM * Saba Brenner LPN - 11/06/2022 10:59 AM [...] Care Saba Brenner LPN documented in this encounterCleveland Clinic Foundation12-07-2022 Instructions* Patient Instructions* Minesh Mosley - 11/06/2022 11:39 AM EST Recommend adaptic and neosporin to right leg applied daily Use tushar wrap from toes to knee to help control edema Diabetes Foot Care Instructions When you have diabetes, proper foot care is very important. Poor foot care may lead to amputation of a foot or leg. As a person with [...] at your feet if you cannot see them. Check for dry, cracked skin. Look for blisters, cuts, scratches, or other sores. Check for redness, increased warmth, or tenderness when touching any area of your feet. Check for ingrown toenails, corns, and calluses. If you get a blister or sore from your shoes, do not "pop" it. Apply a bandage and wear a differentpair of shoes. Take Care of Your Toenails Cut toenails after bathing, when they are soft. Cut toenails straight across and smooth with a nail file. Avoid cutting into the corners of toes. Do not cut cuticles. If you have neuropathy (or decreased sensation in your feet) a cargo router should always cut your toenails. Be Careful [...] make sure there are no foreign objects orrough areas. Avoid tight socks. Wear natural-fiber socks (cotton, wool, or a cotton-wool blend). Wear special shoes if your health care provider recommends them. Wear shoes/boots that will protect your feet from various weather conditions (cold, moisture, etc.). Make sure your shoes fit properly. If you have neuropathy (nerve damage), you may not notice that your shoes are too tight. Perform the "footwear test" described below. Footwear Test Use this simple [...] Go to your health care provider or cargo router to treat these conditions. documented in this encounterCleveland Clinic Foundation12-06-2022 Miscellaneous Notes* Telephone Encounter - Mehrdad Michael RN - 11/05/2022 4:28 PM EST Pt and Clarisa with [employer] called and is notified of providers message. Pt voices understanding. Mehrdad Michael RN * Telephone Encounter - Panfilo Oreilly MD - 11/05/2022 4:07 PM EST Will discuss at upcoming OV. * Telephone Encounter - Mehrdad Michael RN - 11/05/2022 3:16 PM EST Clarisa Quinetro CM with [employer] called in and was check on order to get scooter for Pt. Let her know that provider would talk with patient about this at her appointment on 11/08/22. She was also reporting that patient is very short of breath and has Diastolic and Systolic heart failure and can't lay flat in her bed. She is requesting orders for a hospital bed for the Patient. Please call and advise. documented in this encounterCleveland Clinic Foundation11-30-2022 History of Present illness Narrative* Tessa Suero, [facility] - 10/30/2022 1:00 PM EST Primary Care Pharmacy Visit CC (Reason for Consult): Diabetes Goal: A1c < 7% Collaborating Provider: Dr. Oreilly Last Provider Visit: 10/18/22 Macario Wallace is a 47 year old female presenting for follow up visit by telephone. Patient consents to pharmacy collaborative practice agreement. Patient is presenting today for follow up pharmacotherapy management appointment for diabetes. Admitted to [facility] form 09/22 to 09/24 for acute [...] Attribute higher glucoses in the 200s when sheeats bread. States she stopped smoking a few [...] GLYCEMIC CONTROL: SMBG s: patient has a BugHerd bao, but sensor fell off a few days [...] if glucose is >70 Preventative Medications: On TUSHAR/ARB: Yes On Statin: Yes ROS: Patient denies [...] Tobacco Use Hyperlipidemia Diabetic Neuropathy ([facility]) Type 2 Diabetes Mellitus With Diabetic Polyneuropathy, With Long-Term Current Use of Insulin ([facility]) Mgus (Monoclonal Gammopathy of Unknown Significance) Acute Pulmonary Embolism Without Acute Cor Pulmonale ([facility]) Adrenal Incidentaloma ([facility]) Obesity, Class III, BMI >= 40 PAST MEDICAL HISTORY Diagnosis Date Abscess of right groin 04/07/2014 Acute diastolic heart failure ([facility]) 01/2022 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[facility]) 07/2019 Left, small lesion on CT Anxiety Cholecystitis s/p cholecystectomy Diabetes mellitus without mention of complication Diabetic neuropathy ([facility]) Seeing Neurology Diastolic heart failure ([facility]) GERD (gastroesophageal reflux disease) History of abnormal cervical Pap smear History of tobacco use Hyperlipidemia Insomnia Microalbuminuria Morbid obesity (HCC) Narcotic abuse (HCC) Non-STEMI (non-ST elevated myocardial infarction) ([facility]) 2/2 respiratory illness LOGAN (obstructive sleep apnea) using CPAP, Dr. Dumont Pulmonary embolism ([facility]) Seasonal allergies Unspecified essential hypertension ALLERGIES [...] insulin: yes blood sugar diagnostic (FREESTYLE PRECISION JONAH STRIPS) test strip To use 4 times [...] once daily. flash glucose scanning reader (FREESTYLE BAO 14 DAY READER) 1 Device four times daily. flash glucose sensor (FREESTYLE BAO 14 DAY SENSOR) kit 1 Each once [...] subcutaneously. Inject 50 units plus sliding scale three times daily before meals (Sliding scale: 2 units for every 50 points >150; TDD 150 units) Insulin Corea, Disposable, (BD ULTRA-FINE GABINO PEN NEEDLE) 32 gauge x 5/32" Inject 1 Each subcutaneously four times daily. [...] Use as directed WALKER ROLLATOR SEAT WITH 6" WHEELS - RED Patient requires large seat [...] polyneuropathy, with long-term current use of insulin ([facility]) - ICD9: 250.60, 357.2, V58.67, ICD10: E11.42, Z79.4 A1c goal <7%; uncontrolled (last A1c 9.7%); SMBG remains evaluated with daily average of 198 on current regimen; endorses s/sx hypoglycemia, but verbalizes understanding of not clinically low; provied education that as body adjusts to lower glucose levels she will stop feeling low in 110s; endorses s/sx hyperglycemia of increased thirst, which patient notices improvement when sugars lower; advised patient to try small, non-fatty meals to help with vomiting on days she takes trulicity; given glucose levels remain above goal will increase toujeo; can increase jardiance to 25mg, but given patient being fluid overload at last offive visit and furosemide subsequently increased, will defer dose increase to upcoming PCP appointment to reassess volume status; hepatic and renal function appropriate for therapy Increase insulin glargine u300 (Toujeo Max) to 105units BID Continue metformin ER 500mg tabs - 2000mg daily, dulaglutide (Trulicity) 4.5mg weekly, empagliflozin (Jardiance) 10mg daily and insulin lispro (Humalog) 50 units + SSI (2 units for every 50 > 150)TIDAC ACEi/ARB for renal protection: yes Statin: yes [...] other method to help patch stay on; daphney was able to quit before for 3 [...] of instructions. Tessa Suero RPh, PharmD PGY1 Shiftman The majority of the pharmacy visit (> 50%) was spent counseling and/or coordinating care for thepatient. interaction: telephonic time was 20 minutes. * Robert Sanchez RPh - 10/30/2022 1:00 PM EST The patient's case was discussed with the pharmacy technician instructor who interviewed the patient. Foley elements of history confirmed during office visit. The progress note reflects my input and comments. Robert Sanchez PharmD, [facility] Primary Care Clinical Pharmacist documented in this encounterCleveland Clinic Foundation11-22-2022 Miscellaneous Notes* Telephone Encounter - Hallie Martinez APRN.CNP - 10/22/2022 10:35 AM EST This can be addressed at her upcoming appointment with Dr. Oreilly. Hallie Martinez APRN.NIKIA * Telephone Encounter - Marianne Grier RN - 10/22/2022 9:59 AM EST Clarisa Quintero with [facility] calls to let provider know that they are assisting patient to apply for the medicaid waiver program as she is needing more assistance in the home. Requesting provider submit a claim to [employer] for patient to have a scooter. Clarisa reports that it will probably be denied but she would like to get the process started. Not pended. Patient has follow up appointment 11/08/2022. Marianne Grier RN documented in this encounterCleveland Clinic Foundation11-22-2022 Miscellaneous Notes* Telephone Encounter - Mariam Meredith RN - 10/22/2022 10:28 AM EST Patient returned call and given both of provider's messages below with verbalized understanding. * Telephone Encounter - Lula Sarmiento LPN - 10/21/2022 12:38 PM EST Please update patient with both messages below. Lab and xray results. * Telephone Encounter - Lula Sarmiento LPN - 10/21/2022 12:38 PM EST ----- Message from Panfilo Oreilly MD sent at 10/21/2022 8:08 AM EST ----- Chest xray normal. Negative for pneumonia or fluid overload. Continue higher dose lasix as discussed in office. * Telephone Encounter - Lula Sarmiento LPN - 10/21/2022 12:36 PM EST ----- Message from Panfilo Oreilly MD sent at 10/21/2022 9:43 AM EST ----- Normal/stable labs. BNP from [facility] resulted at 11 which is normal. Recommend she continue higher doselasix, low sodium diet, wear CPAP nightly as discussed. F/u with cardiology. Call if leg swelling not improving with lasix or with weight increase as discussed in office. documented in this encounterCleveland Clinic Foundation11-18-2022 Miscellaneous Notes* Telephone Encounter - Sandra Potts LPN - 10/18/2022 3:45 PM EST [facility] telephoned and made aware of NIKIA BARBOZA message. Read back. Will dispense for patient. Sandra Potts LPN * Telephone Encounter - Hallie Martinez APRN.CNP - 10/18/2022 2:56 PM EST Fine to dispense 81 and that can be for one month. Hallie Martinez APRN.CNP * Telephone Encounter - Tri Sorensen RN - 10/18/2022 2:46 PM EST [facility] calling regarding recent script for nicotine patches for patient. Pharmacy states the packs come in quantity of 81 only and to specify how many days provider would like patient to takethis medication. Please contact [facility]. Thank you. documented in this encounterCleveland Clinic Foundation11-18-2022 History of Present illness Narrative* Elysia Faust RT(R) - 10/18/2022 12:30 PM EST Radiology Service Progress Note PATIENT NAME: Macario Wallace DATE OF SERVICE: October 18, 2022 TIME: 12:34 PM PATIENT IDENTITY VERIFICATION COMPLETED USING TWO (2) IDENTIFIERS: Name and Date of confirmedby patient verbally. FALL SCREENING: Has the patient had 2 falls in the last year or 1 fall with injury or currently using an Ambulatory Assistive Device (Walker, Cane, Wheelchair, Crutches, etc.)? Yes, Patient High Riskfor Falls What interventions were put in place to prevent falls during this visit? Offered Assistance with Transfers/Clothing and Instructed Patient to Remain Seated (Not on Exam Table) Until Exam PATIENT GENDER DATA: Female. status: : No status: NO. PATIENT RELEVANT IMPLANT DATA REVIEWED: Not Applicable RADIOLOGY DEPARTMENT: General X-ray: Exam(s) Completed: Chest X-Ray PERIPHERAL IV DATA: Not applicable SIGNED BY: RT Brynn(R) October 18, 2022 12:34 PM documented in this encounterCleveland Clinic Foundation11-18-2022 Instructions* Patient Instructions* Panfilo Oreilly MD - 10/18/2022 11:53 AM EST Check daily weight and call with 2-3 lbs weight gain in 24 hours, or 5 lbs total. documented in this encounterCleveland Clinic Foundation11-18-2022 History of Present illness Narrative* Panfilo Oreilly MD - 10/18/2022 10:29 AM EST Chief Complaint Patient presents with: Hospital Follow Up HPI Macario Wallace is a 47 year old female who presents here today for Hospital Discharge Follow up.. Patient was admitted to [facility] form 09/22 to 09/24 for acute on chronic heart failure and COPD exacerbation. Presented with SOB x 4 days and CXR showed pulmonary venous congestion in the ED. Admitted tothe PCU and managed on IV lasix, solu-medrol, [...] calorie diet. Not adding salt to her food. Did drink a couple zero sugar Gatorades the other day before she noticed its high sodium content.Trying to walk more. Has not been feeling SOB like before she went into the hospital. Using her oxygen 3 L at rest and 4L with exertion. Notes that she occasionally gets stabbing pain in the center of her chest while resting. Lasts for a couple seconds. Denies pain into her neck/arm, SOB, diaphoresis, nausea, lighthead edness, worsening with exertion. EKG on 09/22 showed sinus tachcycardia. No Troponins drawn while inpatient and did not have stress testing. Is not seeing cardiology for diastolic CHF, but has been referred in the past. Notes she has had some tremors and sugars have been in the 150-200 range. Checking sugars 4-6 timesper day. Patient does not have follow up with ore miner and has not seen cardiology recently for her history of CHF. Did not need PT or OT on discharge. Notes tremor in her arms and legs for the last few months. Notices most if she goes to hold them out for any period of time. Has not had [...] diastolic heart failure (HCC) 01/2022 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[facility]) 07/2019 Left, small lesion on CT Anxiety Cholecystitis s/p cholecystectomy Diabetes mellitus without mention of complication Diabetic neuropathy (HCC) Seeing Neurology Diastolic heart failure (HCC) GERD (gastroesophageal reflux disease) History of abnormal cervical Pap smear History of tobacco use Hyperlipidemia Insomnia Microalbuminuria Morbid obesity ([facility]) Narcotic abuse ([facility]) Non-STEMI (non-ST elevated myocardial infarction) ([facility]) 2/2 respiratory illness LOGAN (obstructive sleep apnea) using CPAP, Dr. Dumont Pulmonary embolism ([facility]) Seasonal allergies Unspecified essential hypertension Previous [...] tablet by mouth daily with breakfast. Insulin Corea, Disposable, (BD ULTRA-FINE GABINO PEN NEEDLE) 32 gauge x 5/32" Inject 1 Each subcutaneously four times daily. [...] insulin: yes blood sugar diagnostic (FREESTYLE PRECISION JONAH STRIPS) test strip To use 4 times daily to monitor glucose. Dx: uncontrolled type II DM, on insulin dilTIAZem CD (CARDIZEM CD) 120 mg 24 hr capsule Take 1 capsule by mouth once daily. famotidine (PEPCID) 20 mg tablet Take 1 tablet by mouth at bedtime as needed. flash glucose scanning reader (InsureWorxSTYLE BAO 14 DAY READER) 1 Device four times daily. fenofibrate nanocrystallized (TRICOR) 145 mg tablet Take 1 tablet by mouth once daily. flash glucose sensor (InsureWorxSTYLE BAO 14 DAY SENSOR) kit 1 Each once [...] mouth once daily. WALKER ROLLATOR SEAT WITH 6" WHEELS - RED Patient requires large seat [...] holding hands outstretched for prolonged period of time, does develop tremor which resolves with rest. CN II- XII grossly intact. Health Maintenance List HEPATITIS B(1 [...] week with update. Obtain labs and imaging asordered to confirm resolution of pneumonia and evaluate fluid status. Will obtain pharmacologic stress testing which was not completed while inpatient and refer to cardiology. Red flags for re-assessment reviewed with patient in detail. Recommended she use Bipap on a nightly basis as instructed. Continue oxygen until workup completed. - CBC + DIFF - COMP METABOLIC PANEL - NT PRO BNP - XR CHEST 2V FRONTAL/LAT - CONSULT TO CARDIOLOGY - NM CARDIAC PERF STRESS/PHARM - MAGNESIUM BLD - PHOSPHORUS INORGANIC - FUROSEMIDE 20 MG TABLET - ECG COMPLETE 2. COPD with exacerbation (HCC) - ICD9: 491.21, ICD10: J44.1 Continue oxygen [...] LOZENGE Panfilo Oreilly MD documented in this encounterCleveland Clinic Foundation11-04-2022 Miscellaneous Notes* Telephone Encounter - Diana Mackenzie FLUE BLOWER - 10/04/2022 1:22 PM EDT Patient has [...] you. Diana Mackenzie LPN documented in this encounterCleveland Clinic Foundation11-01-2022 Miscellaneous Notes* Telephone Encounter - Keyonna Gross LPN - 10/01/2022 9:02 AM EDT Spoke with pt and information listed below given. Pt verbalizes understanding. Pt has picked up the Trulicity. Keyonna Gross LPN * Telephone Encounter - Robert Sanchez RPh - 09/09/2022 3:36 PM EDT student records specialist called around to different pharmacies, learned [facility] can get her Trulicity in stock. Order sent to [facility] today. Called patient to inform but unable [...] of the above. Thanks! Robert Sanchez, PharmD, BCPS Primary Care Clinical Pharmacist * Telephone Encounter - Keyonna Gross LPN - [...] do. Keyonna Gross LPN documented in this encounterCleveland Clinic Foundation10-10-2022 Miscellaneous Notes* Telephone Encounter - Sandra Potts LPN - 09/09/2022 3:57 PM EDT Looks like Robert Sanchez, [facility] sent a new script to [facility]. [facility] telephoned and stated they do have the medication in stock and script will be ready for warp picker around 11am today. Patient telephoned and made aware, agreeable to [facility]. Sandra Potts LPN * Telephone Encounter - Panfilo Oreilly MD - 09/09/2022 2:08 PM EDT Can this be transferred to another pharmacy? * Telephone Encounter - Jessica Croft LPN - 09/09/2022 2:04 PM EDT [place]/pharmacy calling [place] is on backorder, Patient is completely out of medication x1 week, asking if there is an alternative for Patient. Jessica Croft LPN documented in this encounterCleveland Clinic Foundation09-27-2022 Miscellaneous Notes* Telephone Encounter - Lula Cameron LPN - 08/27/2022 2:01 PM EDT Pt calling for refill. HUMBLE: 07/09/22 NOV: 10/18/22 Last Refill: 02/28/22 #90 0 refills Lula Cameron LPN documented in this encounterCleveland Clinic Foundation09-01-2022 History of Present illness Narrative* Robert Sanchez, [facility] - 08/01/2022 1:00 PM EDT Primary Care Pharmacy Visit CC (Reason for Consult): Diabetes Goal: A1c < 7% Collaborating Provider: Dr. Oreilly Last Provider Visit: 07/09/22 Macario Wallace is a 47 year old female presenting for follow up visit by telephone. Patient consents to pharmacy collaborative practice agreement. Patient is presenting today for f/up pharmacotherapy management appointment for diabetes. At initial PharmD visit on 09/06/21, Trulicity dose was increased, [...] so it was switched to Toujeo Max. At last PharmD visit on 05/02, no med changes made. At last PCP appt, insulin increased. Subjective: HPI: Patient reports not feeling well today. All her grandkids are sick, they think they all have COVID.Symptoms started for her several days ago. Thought it was a cold, some congestion. Denies any CP, SOB, vision changes, or severe DANIELS. Appetite fluctuates. Still taking medications daily. "If I could stay away from the sugar I think I would be good." Also eating a lot of fruit. Has the [employer], said the sensor has fallen off a few time. Just replaced it a couple of days ago. Usually scanning 2-5x/day. Feels occasional thirst or dry mouth. Thinks it is less than what she experienced several weeks ago. Pees constantly with water pills. Hasn't had any [...] Furosemide 40mg tabs - 40-80mg BID for FADI HCTZ 12.5mg daily Lisinopril 10mg daily Metoprolol [...] range (70-180 mg/dL): 0% Preventative Medications: On TUSHAR/ARB: Yes On Statin: Yes ROS: Patient denies CP, SOB, DANIELS, blurred vision, dizziness or lightheadedness Patient denies symptoms of hypoglycemia (sweating, anxiety, palpitations, hunger, and tremor) Patient reports symptoms of hyperglycemia - low energy and frequent urination (though likely attributed to current illness and diuretics) Patient denies potential medication adverse effects DIET/EXERCISE/SOCIAL Hx: States she had a "sugar attack" and was severely craving sugar all of last week, diet was not very good; "it's like a barton, I don't know what to do when I have those cravings." She ate a lot of fruit, some [...] not present Adherence: denies missed doses Pharmacy: [facility] Rx coverage: Medicaid Affordability: no issues Diabetes supplies: [employer] System: pill box ACTIVE PROBLEM LIST [...] Embolism Without Acute Cor Pulmonale ([facility]) Adrenal Incidentaloma ([facility]) Obesity, Class III, BMI >= 40 PAST MEDICAL HISTORY Diagnosis Date Abscess of right groin 04/07/2014 Acute diastolic heart failure ([facility]) 01/2022 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[facility]) 07/2019 Left, small lesion on CT Anxiety Cholecystitis s/p cholecystectomy Diabetes mellitus without mention of complication Diabetic neuropathy (HCC) Seeing Neurology Diastolic heart failure ([facility]) GERD (gastroesophageal reflux disease) History of abnormal cervical Pap smear History of tobacco use Hyperlipidemia Insomnia Microalbuminuria Morbid obesity (HCC) Narcotic abuse (HCC) Non-STEMI (non-ST elevated myocardial infarction) ([facility]) 2/2 respiratory illness LOGAN (obstructive sleep apnea) using CPAP, Dr. Dumont Pulmonary embolism ([facility]) Seasonal allergies Unspecified essential hypertension ALLERGIES [...] insulin: yes blood sugar diagnostic (FREESTYLE PRECISION JONAH STRIPS) test strip To use 4 times [...] once daily. flash glucose scanning reader (FREESTYLE BAO 14 DAY READER) 1 Device four times daily. flash glucose sensor (FREESTYLE BAO 14 DAY SENSOR) kit 1 Each once [...] 50 points >150; TDD 150 units) Insulin Corea, Disposable, (BD ULTRA-FINE GABINO PEN NEEDLE) 32 gauge x 5/32" Inject 1 Each subcutaneously four times daily. [...] Use as directed WALKER ROLLATOR SEAT WITH 6" WHEELS - RED Patient requires large seat [...] report to review but reported data shows Bgspoorly controlled (avg BG 274 mg/dL, TIR 0%); [...] discussed literature findings of possible increased risks ofFournier's gangrene - advised patient to stop medication [...] counting; encouraged to review nutrition labels; limit to <45g carbs/meal Will send resources to review via [facility] Advised to only eat 1/2 bagel or switch to bagel thins Applauded on improved A1c Advised to scan CGM more frequently, had niece help her get set up with [employer] ACEi/ARB for renal protection: yes, Scr and K+ sufficient Statin: yes, LFTs sufficient HbA1c: due 10/09 Patient is scheduled to see PCP on 10/18. Patient to have PharmD f/u on 09/05. Patient verbalized understanding of instructions. Robert Sanchez PharmD, BCPS Primary Care Clinical Pharmacist The majority of the pharmacy visit (> 50%) was spent counseling and/or coordinating care for thepatient. interaction: telephonic time was 55 minutes. documented in this encounterCleveland Clinic Foundation09-01-2022 Instructions* Patient Instructions* Robert Sanchez RPh - 08/01/2022 1:00 PM EDT [...] help you get set up with the [employer] account. If you did not get the email, please let me know. Start to review nutrition labels. Try to limit your carbohydrates to <30-45g per MEAL. Review the materials I sent to you via [facility]. Try to incorporate more protein and fiber into your diet. Tryswitching to 1/2 bagel or to Bagel Thins. documented in this encounterCleveland Clinic Foundation08-25-2022 History of Present illness Narrative* Berenice Bauman MD - 07/25/2022 7:19 PM EDT Macario Wallace 1975 REFERRING PHYSICIAN: Panfilo Oreilly,* CHIEF COMPLAINT: Consult (Colonoscopy) HPI: The patient is a 47 year old female referred for endoscopy. Macario notes no blood in her stools She denies abdominal pain. She denies new onset diarrhea and/or constipation. She notes no colon cancer in her immediate family. She denies previous colonoscopy. She was recently evaluated at [facility] ED on 04/21/2022 for chest pain. She was tofollow up with cardiology but has not done [...] apnea) using CPAP, Dr. Dumont Pulmonary embolism ([facility]) Seasonal allergies Unspecified essential hypertension PAST SURGICAL HISTORY Procedure Laterality Date ANALGESIA,EPIDURAL,LABOR & 1994 INCISION & DRAINAGE ABSCESS COMPLICATED/MULTIPLE 04/07/14 LAPS SURG CHOLECYSTECTOMY W/CHOLANGIOGRAPHY 11/04/2007 PAST SURGICAL HISTORY OF Left 2006 arthroscopic knee surgery PAST SURGICAL HISTORY OF 1995 LEEP Current Outpatient Medications Medication Sig Insulin Corea, Disposable, (BD ULTRA-FINE GABINO PEN NEEDLE) 32 gauge x 32" Inject 1 Each subcutaneously four times daily. [...] insulin: yes blood sugar diagnostic (FREESTYLE PRECISION JONAH STRIPS) test strip To use 4 times [...] bedtime as needed. flash glucose scanning reader (FREESTYLE BAO 14 DAY READER) 1 Device four times daily. fenofibrate nanocrystallized (TRICOR) 145 mg tablet Take 1 tablet by mouth once daily. flash glucose sensor (FREESTYLE BAO 14 DAY SENSOR) kit 1 Each once [...] mouth once daily. WALKER ROLLATOR SEAT WITH 6" WHEELS - RED Patient requires large seat [...] entered by the nurse and reviewed by me Nursing Notes: Nadia Cagle 07/23/2022 10:34 AM Signed REVIEW OF SYSTEMS: General: The patient denies fatigue, denies weight loss, NOTES weight gain, denies feeling hot, anddenies feelings of cold. Eyes: The patient denies glaucoma, denies eye injury/surgery, does not wear glasses or contacts. Ear/Nose/Throat: The patient NOTES allergies, denies hayfever, denies ear infections, and denies bloody noses. Cardiovascular: The patient denies chest pain, NOTES heart disease, NOTES high blood pressure,denies cardiac stent, denies prior heart attack, denies irregular heart beat, NOTES high cholesterol, denies poor circulation, denies heart failure, other cardiac issues, denies claudication, denies cold feet, denies peripheral arterial stent. Respiratory: The patient denies tuberculosis, denies pneumonia, NOTES frequent cough, denies pulmonary embolism, NOTES shortness of breath, and denies coughing up blood. Gastrointestinal: The patient denies difficulty swallowing, NOTES acid reflux, denies ulcers, denies vomiting, denies jaundice/hepatitis, denies gallbladder problems, denies black [...] nourished, well hydrated in no acute distress. Thepatient is oriented to time, place, and person. VITALS: Blood pressure 136/71, pulse 103, temperature 36.8 C (98.2 F), height 166.4 cm (5' 5.5"), weight (!) 176.4 kg (389 lb), last [...] have offered referral to a larger hospital ([facility]) for screening colonoscopy Patient asks for alternatives for screening for colon cancer, and I have offered stool guaiac testing but told patient that this has to be done on a yearly basis. Patient states that she would preferstool guaiac testing over going to [facility] for colonoscopy. I have ordered [...] back to the requesting physician by way of shared Medical record or letter to requesting physician via US mail. Return to Clinic: The patient is instructed to follow-up with me as per needed. Medical Decision Making: Problems: Low: Stable chronic illness Medical Decision Making Level: 2 - Straightforward Berenice Bauman MD documented in this encounterCleveland Clinic Foundation08-24-2022 Miscellaneous Notes* Telephone Encounter - Belem Romero Ma - 07/24/2022 12:47 PM EDT Last office visit: 07/09/22 F/u scheduled: 10/18/22 Belem Romero Ma * Telephone Encounter - Madelyn Estes - 07/24/2022 11:56 AM EDT Patient has been identified by name and date of : Yes Requested Prescriptions Pending Prescriptions Disp Refills insulin needles, DISPOSABLE, (UNIFINE PENTIPS) 31 gauge x 5/16" 100 Each 5 Sig: use with insulin RX INSTRUCTIONS: Pharmacy initiated this request. No need to notify patient. Madelyn Estes documented in this encounterCleveland Clinic Foundation08-23-2022 Nurse Note* Nadia Cagle - 07/23/2022 10:29 AM EDT REVIEW OF SYSTEMS: General: The patient denies fatigue, denies weight loss, NOTES weight gain, denies feeling hot, anddenies feelings of cold. Eyes: The patient denies glaucoma, denies eye injury/surgery, does not wear glasses or contacts. Ear/Nose/Throat: The patient NOTES allergies, denies hayfever, denies ear infections, and denies bloody noses. Cardiovascular: The patient denies chest pain, NOTES heart disease, NOTES high blood pressure,denies cardiac stent, denies prior heart attack, denies irregular heart beat, NOTES high cholesterol, denies poor circulation, denies heart failure, other cardiac issues, denies claudication, denies cold feet, denies peripheral arterial stent. Respiratory: The patient denies tuberculosis, denies pneumonia, NOTES frequent cough, denies pulmonary embolism, NOTES shortness of breath, and denies coughing up blood. Gastrointestinal: The patient denies difficulty swallowing, NOTES acid reflux, denies ulcers, denies vomiting, denies jaundice/hepatitis, denies gallbladder problems, denies black [...] Colonoscopy: Unknown Nadia Cagle documented in this encounterCleveland Clinic Foundation08-11-2022 Miscellaneous Notes* Telephone Encounter - Robert Sanchez RPh - 07/11/2022 9:21 AM EDT Called patient to schedule f/up appt for DM mngt, CGM interpretation, and med review. Scheduled for08/01. Robert Sanchez PharmD, BCPS Primary Care Clinical Pharmacist documented in this encounterCleveland Clinic Foundation08-09-2022 Miscellaneous Notes* Telephone Encounter - Sandra Potts LPN - 07/09/2022 1:20 PM EDT Patient aware. Sandra Potts LPN * Telephone Encounter - Panfilo Oreilly MD - 07/09/2022 1:17 PM EDT Rx sent as requested. * Telephone Encounter - Lula Sarmiento LPN - 07/09/2022 11:37 AM EDT Patient is changing her primary pharmacy to [facility] and is requesting all Rx's for medications and diabetic supplies forwarded to them. documented in this encounterCleveland Clinic Foundation08-09-2022 History of Present illness Narrative* Elysia Faust RT(R) - 07/09/2022 12:00 PM EDT Radiology Service Progress Note PATIENT NAME: Macario Wallace DATE OF SERVICE: July 09, 2022 TIME: 11:48 AM PATIENT IDENTITY VERIFICATION COMPLETED USING TWO (2) IDENTIFIERS: Name and Date of confirmedby patient verbally. FALL SCREENING: Has the patient had 2 falls in the last year or 1 fall with injury or currently using an Ambulatory Assistive Device (Walker, Cane, Wheelchair, Crutches, etc.)? Yes, Patient High Riskfor Falls What interventions were put in place to prevent falls during this visit? Offered Assistance with Transfers/Clothing and Instructed Patient to Remain Seated (Not on Exam Table) Until Exam PATIENT GENDER DATA: Female. status: : No status: NO. PATIENT RELEVANT IMPLANT DATA REVIEWED: Not Applicable RADIOLOGY DEPARTMENT: General X-ray: Exam(s) Completed: Chest X-Ray PERIPHERAL IV DATA: Not applicable SIGNED BY: RT Brynn(R) July 09, 2022 11:48 AM documented in this encounterCleveland Clinic Foundation08-05-2022 Miscellaneous Notes* Telephone Encounter - Diana Mackenzie LPN - 07/05/2022 4:32 PM EDT Patient calling [...] you. Diana Mackenzie LPN documented in this encounterCleveland Clinic Foundation08-03-2022 Miscellaneous Notes* Telephone Encounter - Belem Romero Ma - 07/03/2022 12:14 PM EDT Form discarded as pt denied the need for it. * Telephone Encounter - Keyonna Beard Ginny TOWNSEND - 07/03/2022 12:11 PM EDT Pt called back and states she does not need a new blood sugar machine, she already has one. Follow up apt scheduled. Keyonna Beard Ginny TOWNSEND * Telephone Encounter - Belem Romero Ma - 07/03/2022 11:56 AM EDT Office received DM supply form. Message left with pt daughter to have pt call office. Need to know what supplies she needs (ie: test strips, glucose meter, lancets, lancing device, control solution, alcohol swabs) She also needs to schedule an OV, please schedule. Belem Romero Ma documented in this encounterCleveland Clinic Foundation07-29-2022 Miscellaneous Notes* Telephone Encounter - Belem Romero Ma - 06/28/2022 4:24 PM EDT See phone note, pt needs appt. Belem Romero Ma * Telephone Encounter - Panfilo Oreilly MD - 2022 5:25 PM EDT Patient overdue for 3 month follow up. Please call to schedule OV. * Telephone Encounter - Kimber Estes - 2022 3:33 PM EDT Patient has [...] patient. Kimber Moore Pss documented in this encounterCleveland Clinic Foundation07-29-2022 Miscellaneous Notes* Telephone Encounter - Lula Sarmiento LPN - 06/28/2022 11:41 AM EDT Phoned patient to schedule OV follow up as she is past due. Patient had an appointment on 06/18/22 but was a no show. documented in this encounterCleveland Clinic Foundation07-28-2022 Miscellaneous Notes* Telephone Encounter - Robert Sanchez RPh - 2022 11:45 AM EDT Patient no-showed to PharmD visit today. Unable to reach via phone and VM not set up yet. Will try reaching out at a later date to reschedule. Robert Sanchez PharmD, ELPIDIO Primary Care Clinical Pharmacist [facility] documented in this encounterCleveland Clinic Foundation07-14-2022 Miscellaneous Notes* Telephone Encounter - Robert Sanchez RPh - 06/13/2022 11:17 AM EDT Patient is a no show for PharmD visit today. Called patient, she is still out of town, had a car issue and just got fixed today. She apologized for missing and agreed to reschedule for next week on 06/20. Robert Sanchez PharmD, [facility] Primary Care Clinical Pharmacist [facility] documented in this encounterCleveland Clinic Foundation07-06-2022 Miscellaneous Notes* Telephone Encounter - Hallie Martinez APRN.BLOCK SAWYER - 06/05/2022 12:22 PM EDT PDMP website checked and validated. All prescriptions have been APPROPRIATELY filled. No suspiciousactivity was identified. 06/05/2022 by Hallie Martinez APRN.CNP * Telephone Encounter - Lashon Overton LPN - [...] you. Lashon Overton LPN documented in this encounterCleveland Clinic Foundation06-02-2022 History of Present illness Narrative* Robert Sanchez [facility] - 05/02/2022 11:00 AM EDT Primary Care Pharmacy Visit CC (Reason for Consult): Diabetes Goal: A1c < 7% Collaborating Provider: Dr. Oreilly Last Provider Visit: 03/19/2022 Macario Wallace is a 46 year old female presenting for follow up visit by telephone. Patient consents to pharmacy collaborative practice agreement. . Patient is presenting today for f/up pharmacotherapy management appointment for diabetes. At initial PharmD visit on 09/06/21, Trulicity dose was increased, [...] in the 100s. States she had an "incident" and her sugars dropped to 70 mg/dL then 65 mg/dL. She consumed sugar (cup of OJ and chewy [employer]), levels eventually went up to 90 mg/dL. [...] to Toujeo Max. Leaving for vacation in [place] on Friday. Current DM Medications: Metformin ER 500mg tabs - 2000mg daily Dulaglutide (Trulicity) 4.5mg weekly on Fridays Insulin glargine u300 (Toujeo Max) 88 units BID Insulin lispro (Humalog) 48 units + SSI TIDAC Current HTN Medications: Furosemide 40mg tabs - 40-80mg BID for FADI HCTZ 12.5mg daily Lisinopril 10mg daily Metoprolol ER 25mg daily Diltiazem CD 120mg daily GLYCEMIC CONTROL: Most numbers <200 mg/dL CGM Report (for 14 days) Summary of Professional CGM Findings: Average glucose is 196 mg/dL (30 days) Preventative Medications: On TUSHAR/ARB: Yes On Statin: Yes DIET/EXERCISE/SOCIAL Hx: Trying to watch diet and lose weight MEDICATIONS: Pill bottles are not present Adherence: denies missed doses Pharmacy: [facility] in [place] Rx coverage: Medicaid Affordability: no issues Diabetes supplies: [employer] CGM Organization System: pill box ACTIVE PROBLEM LIST Calculus of Gallbladder Without Mention of Cholecystitis Or Obstruction Anxiety Logan (Obstructive Sleep Apnea) Essential Hypertension Gerd (Gastroesophageal Reflux Disease) Morbid Obesity (Hcc) Microalbuminuria Insomnia History of Tobacco Use Hyperlipidemia Diabetic Neuropathy (Hcc) Type 2 Diabetes Mellitus With Diabetic Polyneuropathy, With Long-Term Current Use of Insulin ([facility]) Mgus (Monoclonal Gammopathy of Unknown Significance) Acute Pulmonary Embolism Without Acute Cor Pulmonale ([facility]) Adrenal Incidentaloma ([facility]) Obesity, Class III, BMI >= 40 PAST MEDICAL HISTORY Diagnosis Date Abscess of right groin 04/07/2014 Acute diastolic heart failure ([facility]) 01/2022 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[facility]) 07/2019 Left, small lesion on CT Anxiety Cholecystitis s/p cholecystectomy Diabetes mellitus without mention of complication Diabetic neuropathy ([facility]) Seeing Neurology GERD (gastroesophageal reflux disease) History of abnormal cervical Pap smear History of tobacco use Hyperlipidemia Insomnia Microalbuminuria Morbid obesity (HCC) Narcotic abuse (HCC) Non-STEMI (non-ST elevated myocardial infarction) [facility] [facility] 2/2 respiratory illness LOGAN (obstructive sleep apnea) using CPAP Pulmonary embolism ([facility]) Seasonal allergies Unspecified essential hypertension Past [...] insulin: yes blood sugar diagnostic (FREESTYLE PRECISION JONAH STRIPS) test strip To use 4 times [...] mouth once daily. flash glucose scanning reader (InsureWorxSTYLE BAO 14 DAY READER) 1 Device four times daily. flash glucose sensor (FREESTYLE BAO 14 DAY SENSOR) kit 1 Each once [...] needles, DISPOSABLE, (UNIFINE PENTIPS) 31 gauge x 5/16" use with insulin Lancets lancets Use to [...] Use as directed WALKER ROLLATOR SEAT WITH 6" WHEELS - RED Patient requires large seat [...] polyneuropathy, with long-term current use of insulin ([facility]) - ICD9: 250.60, 357.2, V58.67, ICD10: E11.42, Z79.4 A1c goal < 7%; uncontrolled (last A1c 10.8%); no SMBG log to review or CGM report but patient reports most BGs in the 100s since switching to Toujeo Max; she had 1 episode of low BG several days ago after dinner (BG ~65) which she treated correctly, except she did NOT follow up with a protein snack; PharmD spent ~10 mins trying to walk patient through how to review CGM data on the reader, alsoexplained how to set up a Freightos account; since lows are not frequent and no SMBG to review willnot make med changes today and will f/up in 1 mo when hopefully will have CGM report to review; in future to consider starting an SGLT2i which could assist [...] diet PharmD sent invite to link via Etherpad. Patient to get account set up prior to next PharmD visit and have CGM downloaded the day prior HbA1c: due 06/18 Patient is scheduled to see BLOCK SAWYER on 06/18. Patient to have PharmD f/u on 06/06. Patient verbalized understanding of instructions. Robert Sanchez PharmD, [facility] Primary Care Clinical Pharmacist Ronal P[facility] The majority of the pharmacy visit (> 50%) was spent counseling and/or coordinating care for thepatient. interaction: telephonic time was 30 minutes. documented in this encounterCleveland Clinic Foundation06-01-2022 Miscellaneous Notes* Telephone Encounter - Hallie Martinez APRN.CNP - 05/01/2022 9:24 AM EDT [place] website checked and validated. All prescriptions have been APPROPRIATELY filled. No suspiciousactivity was identified. 05/01/2022 by Hallie Martinez APRN.NIKIA * Telephone Encounter - Georgina Samayoa RN - [...] you. Georgina Samayoa RN documented in this encounterCleveland Clinic Foundation05-11-2022 Miscellaneous Notes* Telephone Encounter - Panfilo Oreilly MD - 04/10/2022 1:59 PM EDT Reviewed. Will discuss this further at future OV. * Telephone Encounter - Marianne Grier RN - 04/10/2022 9:31 AM EDT Patient calls in and provider message below given. Patient reports that she didn't refill the Gabapentin 300 mg. [facility] and [facility] filled it because it had one remainingrefill and none on the Gabapentin 800 mg prescription. Reviewed provider message below again with patient. Marianne Grier RN * Telephone Encounter - Panfilo Oreilly MD - 04/10/2022 9:08 AM EDT If she was taking the 800 mg Gabapentin and it was working for her, I do not know why she would have filled another rx for the 300 mg dosage on 04/05. Based on this, I will not be able to refill her medication until 05/06. * Telephone Encounter - Roc Stephens Ma - 04/10/2022 8:12 AM EDT Spoke to patient who received gabapentin 800 mg on 03/19 and than 300 mg on 04/02. Patient is aware she is not to have both prescriptions and needs to discard. Rx for 800 mg would be due to refill on 04/18. Please advise Roc Stephens Ma * Telephone Encounter - Panfilo Oreilly MD - 04/09/2022 3:46 PM EDT She just filled this on 04/05. Cannot reorder for 30 days. PDMP website checked and validated. 04/09/2022 by Panfilo Oreilly MD * Telephone Encounter - Vanessa Shepherd - 04/09/2022 2:02 PM EDT Patient is calling today to advise the pill form of gabapentin seems to be working better than the capsules. She was only given the 30 trial of the pill form and would like to go forward with that type of pill and have it sent to her pharmacy , [facility]. Patient has been identified by name and date of : Yes Pending Prescriptions Disp Refills GABAPENTIN 800 MG TABLET 90 tablet 0 Sig: Take 1 tablet by mouth three times daily for 30 days. RIKKI: No RX INSTRUCTIONS: Patient aware RX will be sent to pharmacy. No need to notify patient. Vanessa Ignacio [facility] [place] in this encounterCleveland Clinic Foundation05-04-2022 Miscellaneous Notes* Telephone Encounter - Robert Sanchez RPh - 04/03/2022 10:56 AM EDT PharmD called patient to see if she received Toujeo and review BG readings. Patient stated she has not yet picked up Toujeo, got notification that insulin is available to be picked up today which sheplans to do. States her last dose of [...] office with any issues. Robert Sanchez PharmD, [facility] Primary Care Clinical Pharmacist [facility] documented in this encounterCleveland Clinic Foundation04-29-2022 Miscellaneous Notes* Telephone Encounter - Robert Sanchez RPh - 03/29/2022 4:04 PM EDT Dose conversion from Tresiba doses >80 units recommends reducing dose by 20% out of caution. Will order Toujeo Max 88 units BID (was on Tresiba 110 units BID). Resident instructed patient to contact PharmD if BGs elevate as a result as frequent insulin dose titrations may be made. The following approved medication requests have been transmitted electronically. Pending Prescriptions Disp Refills TOUJEO MAX U-300 SOLOSTAR 300 UNIT/ML (3 ML) SUBCUTANEOUS INSULIN PEN 18 mL 5 Sig: Inject 88 Units subcutaneously twice daily. Robert Sanchez RPh * Telephone Encounter - Leena Salinas RPh - 03/29/2022 3:53 PM EDT PharmD called patient to update on information below. Discussed starting Toujeo Max in place of Tresiba and counseled patient on new dosing schedule. Recommended patient to notify PharmD in approximately 1 week to review SMBG so PharmD can make doseadjustments if necessary prior to next f/up visit. Patient denied having any additional questions and verbalized understanding. Leena Salinas PharmD PGY1 Shiftman * Telephone Encounter - Leena Salinas RPh - 03/29/2022 3:09 PM EDT PharmSteve called patient's preferred pharmacy and spoke to Michael Blas. Per pharmacist, receiving an insurance rejection for Tresiba insulin stating that this product is not on insurance's formulary. No alternative therapies were provided on insurance rejection notification. Appears that product Toujeo Max should be a preferred, level 1 item on patient's insurance. PharmSteve will send updated prescription to patient's preferred pharmacy for Toujeo Max to assess for insurance coverage. Leena Salinas PharmD PGY1 Shiftman * Telephone Encounter - Georgina Samayoa RN - 03/29/2022 11:38 AM EDT Patient calls and states that provider had increased patient's insurance yesterday at appointment. Patient states that when she went to warp picker medication she was told that dosage is too high by pharmacist and insurance will not cover medication. Patient states that she may need a prior authorization. Please review and advise, Georgina Samayoa RN documented in this encounterCleveland Clinic Foundation04-28-2022 Miscellaneous Notes* Telephone Encounter - Gisele Dumas - 03/28/2022 2:30 PM EDT Patient notified of results, verbalizes understanding of instructions. * Telephone Encounter - Panfilo Oreilly MD - 03/28/2022 2:05 PM EDT Will call in rx for clotrimazole cream to be applied to areas of rash BID for 14 days or for 1 weekafter rash has resolved. Needs to keep area clean and dry to prevent recurrent rash. Continue to work on DM control as uncontrolled DM can lead to increased fungal infections. If she develops pain, spreading redness, fever, or pus drainage needs to call right away for OV to evaluate for skin infection. * Telephone Encounter - Mehrdad Michael RN - 03/28/2022 1:16 PM EDT [...] if provider will send a medication to [facility] in [place] for her. Please call and advise. documented in this encounterCleveland Clinic Foundation04-28-2022 History of Present illness Narrative* Robert Sanchez, [facility] - 03/28/2022 10:30 AM EDT The patient's case was discussed with the pharmacy technician instructor who interviewed the patient. Foley elements of history confirmed during office visit. The progress note reflects my input and comments. Robert Sanchez PharmD, [facility] Primary Care Clinical Pharmacist Ronal Paz [facility] * Leena LAURENT Salinas - 03/28/2022 10:30 AM EDT Primary Care Pharmacy Visit CC (Reason for Consult): Diabetes Goal: A1c < 7% Collaborating Provider: Dr. Oreilly Last Provider Visit: 03/19/2022 Macario Wallace is a 46 year old female presenting for follow up visit by telephone. Patient consents to pharmacy collaborative practice agreement. . Patient is presenting today for f/up pharmacotherapy management appointment for diabetes. At initial PharmD visit on 09/06/21, Trulicity dose was increased, [...] mid-200s mg/dL. Patient was able to obtain Freestyle Bao CGM and was using. Patient recently placed new sensor on arm, but it was accidentally knocked off a couple days later. Not currently using CGM or checking BG. Patient states she never received invite for [email or web address] to connect with PharmD to view CGM report. Patient has concerns for continually getting yeast infections, currently has skin yeast infection under her breasts/bra line but patient reports also frequently getting infections under her belly andvaginally as well. Patient currently using baby powder on areas without much improvement. Patient co nsidering reaching out to PCP's office to get prescription medication to treat. Patient inquiring about starting another medication as discussed at last PharmD [...] experience symptoms of hypoglycemia feeling clammy and shaky,will check BG with readings in the 80s-100s mg/dL, denies ever having any readings < 70 mg/dL. Kuldip borges states she experiences this approximately once every 2 weeks or so. Patient states she has also cut back on smoking, smoking < 1 cigarette per day, not smoking every day. Patient reports still using NRT patch and lozenge. Patient working to decrease all of these in an effort to be nicotine free for 30 days prior to bariatric surgery, will have more f/up for surgery and nothing has been scheduled yet. Patient endorses [...] visit: No Hypoglycemia: denies Preventative Medications: On TUSHAR/ARB: Yes On Statin: Yes ROS: Patient denies CP, SOB, DANIELS, blurred vision, dizziness or lightheadedness Patient denies symptoms of hypoglycemia (sweating, anxiety, palpitations, hunger, and tremor) Patient reports symptoms of hyperglycemia (polyuria, polydipsia, polyphagia) Patient denies potential medication adverse effects MEDICATIONS: Pill bottles are not present Adherence: reports missed doses - out of Tresiba starting this morning, getting from pharmacy latertoday Pharmacy: [facility] [place] coverage: Medicaid Affordability: no issues Diabetes supplies: [employer] CGM Organization System: pill box ACTIVE PROBLEM LIST Calculus of Gallbladder Without Mention of Cholecystitis Or Obstruction Anxiety Logan (Obstructive Sleep Apnea) Essential Hypertension Gerd (Gastroesophageal Reflux Disease) Morbid Obesity (Hcc) Microalbuminuria Insomnia History of Tobacco Use Hyperlipidemia Diabetic Neuropathy (Hcc) Type 2 Diabetes Mellitus With Diabetic Polyneuropathy, With Long-Term Current Use of Insulin ([facility]) Mgus (Monoclonal Gammopathy of Unknown Significance) Acute Pulmonary Embolism Without Acute Cor Pulmonale (Hcc) Adrenal Incidentaloma ([facility]) Obesity, Class III, BMI >= 40 PAST MEDICAL HISTORY Diagnosis Date Abscess of right groin 04/07/2014 Acute diastolic heart failure ([facility]) 01/2022 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[facility]) 07/2019 Left, small lesion on CT Anxiety Cholecystitis s/p cholecystectomy Diabetes mellitus without mention of complication Diabetic neuropathy (HCC) Seeing Neurology GERD (gastroesophageal reflux disease) History of abnormal cervical Pap smear History of tobacco use Hyperlipidemia Insomnia Microalbuminuria Morbid obesity (HCC) Narcotic abuse (HCC) Non-STEMI (non-ST elevated myocardial infarction) ([facility]) 2/2 respiratory illness LOGAN (obstructive sleep [...] insulin: yes blood sugar diagnostic (FREESTYLE PRECISION JONAH STRIPS) test strip To use 4 times [...] once daily. flash glucose scanning reader (FREESTYLE BAO 14 DAY READER) 1 Device four times daily. flash glucose sensor (FREESTYLE BAO 14 DAY SENSOR) kit 1 Each once [...] needles, DISPOSABLE, (UNIFINE PENTIPS) 31 gauge x 5/16" use with insulin Lancets lancets Use to [...] Use as directed WALKER ROLLATOR SEAT WITH 6" WHEELS - RED Patient requires large seat [...] Tresiba to lower BG; patient can connect Etherpad profile to PharmD for PharmD to review CGM report; patient continuing to pursue bariatric surgery butneeding to be nicotine free prior to surgery, which patient is still working on decreasing; renal fxn and LFTs sufficient for use. INCREASE Tresiba to 110 units BID Patient to notify PharmD of any hypoglycemia CONTINUE Humalog 48 units + SSl TID AC, Trulicity 4.5 mg weekly, and metformin ER 2000 mg daily Advised patient to call [facility] (telephone number on back of reader) to inquire about getting a replacement sensor PharmD will re-send invite to patient's email to connect on Etherpad for CGM report sharing Patient to notify PharmD before next f/up visit if having any issues connecting on Etherpad Recommended patient to reach out to PCP [...] understanding of instructions. Leena Salinas PharmD PGY1 [facility] The majority of the pharmacy visit (> 50%) was spent counseling and/or coordinating care for thepatient. interaction: telephonic time was 26 minutes. documented in this encounterCleveland Clinic Foundation04-20-2022 Miscellaneous Notes* Telephone Encounter - Keyonna Gross LPN - 03/20/2022 11:04 AM EDT Spoke with pt and information listed below given. Pt verbalizes understanding. Transferred to bus company manager. Keyonna Gross LPN * Telephone Encounter - Cass Chambers Cma - 03/20/2022 8:54 AM EDT No answer and no VM will need to try back later Cass Chambers Cma * Telephone Encounter - Hallie Martinez APRN.NIKIA - 03/20/2022 8:15 AM EDT Please call patient and let her know her A1c has increased to 10.8. Needs to reschedule with clinical pharmacist for appointment. Please assist in scheduling. The rest of her blood work is in acceptable ranges. Recheck in 3 months. Hallie Martinez APRN.CNP documented in this encounterCleveland Clinic Foundation04-19-2022 History of Present illness Narrative* Hallie Martinez APRN.CNP - 03/19/2022 10:15 AM EDT [...] water in it. Following with pulmonology in [place]. Continues to wear O2 continuously 2L at rest and 4L with exertion. Admits to SOB with exertion. Denies dyspnea, coughing or wheezing HYPERLIPIDEMIA: Patient is taking [...] right groin 04/07/2014 Acute diastolic heart failure ([facility]) 01/2022 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[facility]) 07/2019 Left, small lesion on CT Anxiety Cholecystitis s/p cholecystectomy Diabetes mellitus without mention of complication Diabetic neuropathy ([facility]) Seeing Neurology GERD (gastroesophageal reflux disease) History of abnormal cervical Pap smear History of tobacco use Hyperlipidemia Insomnia Microalbuminuria Morbid obesity (HCC) Narcotic abuse ([facility]) Non-STEMI (non-ST elevated myocardial infarction) ([facility]) 2/2 respiratory illness LGOAN (obstructive sleep apnea) using CPAP Pulmonary embolism ([facility]) Seasonal allergies Unspecified essential hypertension ALLERGIES [...] once daily. flash glucose scanning reader (FREESTYLE BAO 14 DAY READER) 1 Device four times daily. flash glucose sensor (FREESTYLE BAO 14 DAY SENSOR) kit 1 Each once [...] PRN for pain WALKER ROLLATOR SEAT WITH 6" WHEELS - RED Patient requires large seat Shower Chair with Back once daily. Use as directed furosemide (LASIX) 40 mg tablet Take 1-2 tablets BID for lower extremity edema Lancets lancets Use to check blood sugars four times daily as instructed blood sugar diagnostic (FREESTYLE PRECISION JONAH STRIPS) test strip To use 4 times [...] needles, DISPOSABLE, (UNIFINE PENTIPS) 31 gauge x 5/16" use with insulin albuterol (PROVENTIL) 2.5 mg [...] lb 12.8 oz) LMP 10/10/2016 SpO2 97% BMI62.70 kg/m . Vital signs reviewed by this provider. APPEARANCE Well appearing, alert, in no acute distress, well-hydrated, well nourished. and Morbidlyobese EYES PERRLA, conjunctiva and sclera normal. HEART [...] arise. - Discussed diabetic education issues of residential diabetic complications, diet and importance of exercise with patient. - BP goal of <130/80 - LDL goal of <100 - HGB A1C - GABAPENTIN 800 MG TABLET - COMP METABOLIC PANEL - discussed with patient she needs to take her gabapentin as ordered and not adjust her own dosages. Also discussed she should not be taking another [...] starch, healthy oil intake (olive oil), healthy protein(fish) along the lines of the Mediterranean diet. [...] carbohydrate, healthy oil intake diet. Hallie Martinez APRN.BLOCK SAWYER Prescription instructions reviewed with patient as applicable. Patient advised if symptoms do not improve or if symptoms worsen sooner, to contact their primary care physician. Potential red flag symptoms discussed with the patient. Reviewed appropriate action plan to take if red flag symptoms occur. Patient agreeable to treatment plan. documented in this encounterCleveland Clinic Foundation04-05-2022 Miscellaneous Notes* Telephone Encounter - Sandra Potts LPN - 03/05/2022 1:23 PM EDT Patient telephoned and made aware. Sandra Potts LPN * Telephone Encounter - Panfilo Oreilly MD - 03/05/2022 1:06 PM EDT rx for Humalog sent. Continue same dosage as Novolog. * Telephone Encounter - Diana Mackenzie LPN - 03/05/2022 10:28 AM EDT Meghan from [facility] pharmacy calling patient insurance requesting Novolog insulin be changedto Humalog asking for new rx to be sent to pharmacy. Please advise documented in this encounterCleveland Clinic Foundation03-02-2022 Miscellaneous Notes* Telephone Encounter - Sandra Potts LPN - 01/30/2022 11:27 AM EST Pt called and made aware. Prescription placed in medical records for pickup. Sandra Potts LPN * Telephone Encounter - Marianne Grier RN - 01/30/2022 8:38 AM EST Patient calls to check on status of request for handicapped placard. Patient asking for prescription to be taken to Medical Records for warp picker. Please call patient when available at [phone]. Marianne Grier RN * Telephone Encounter - Panfilo Oreilly MD - 01/29/2022 2:39 PM EST Order for handicap placard printed and signed. In my outbox to be faxed or picked up. * Telephone Encounter - Idalia Milton - 01/29/2022 2:04 PM EST Macario Wallace is calling Panfilo Oreilly MD today to request a prescription for a handicapplacard. Patient would like the prescription left at the patient coordinator front desk. No chief complaint on file. Patient has been identified by name anNoES:[id number]} [phone] (home) [phone] (cell) Please return call when prescription ready for warp picker. Was an appointment scheduled: No: Closing statement: Results or non-symptom based questions: Thank you for calling [facility], your call will be returned within the next business day. Idalia Milton documented in this encounterCleveland Clinic Foundation02-28-2022 Miscellaneous Notes* Telephone Encounter - Sandra Potts LPN - 01/28/2022 2:33 PM EST Pt telephoned and message below given. Voiced understanding. Will call back with update in 1 week. Sandra Potts LPN * Telephone Encounter - Sandra Potts LPN - 01/25/2022 12:34 PM EST Pt telephoned. Unable to leave message due to VM not set up yet. * Telephone Encounter - Hallie Martinez APRN.CNP - 01/25/2022 11:49 AM EST Can add 300 mg of gabapentin in the afternoon so she will take (3) 300 mg tablets in the AM (1) 300mg tablet in the afternoon and (3) 300 mg tablets in the evening. Update me in one week with how this is working. Diflucan sent to pharmacy- one tablet today for one dose, repeat in three days if needed. Hallie Martinez APRN.NIKIA documented in this encounterCleveland Clinic Foundation02-25-2022 Miscellaneous Notes* Telephone Encounter - Hallie Martinez APRN.NIKIA - 01/25/2022 11:59 AM EST Thank you Hallie * Telephone Encounter - Sandra Potts LPN - 01/25/2022 11:49 AM EST There was. I refaxed and advised her to call Ashlyn back later today. Sandra Potts LPN * Telephone Encounter - Hallie Martinez APRN.CNP - 01/25/2022 11:42 AM EST There should have been an order for compression stockings along with the shower chair and walker Hallie Martinez APRN.CNP * Telephone Encounter - Sandra Potts LPN - 01/25/2022 11:24 AM EST Pt telephoned. [facility] states didn't receive orders yet. Pt requesting compression stockings be faxed to [facility]. All orders refaxed and faxed at this time. Sandra Potts LPN * Telephone Encounter - Idalia Milton - 01/25/2022 10:49 AM EST Patient calling in today regarding the walker, compression stockings and shower chair. Patient is asking about the status of the items. Please return call to patient with update documented in this encounterCleveland Clinic Foundation02-25-2022 Miscellaneous Notes* Telephone Encounter - Nita Abbott - 01/25/2022 10:40 AM EST Macario Wallace is calling Panfilo Oreilly MD today Patient had a virtual appointment today with the pharmacist and it was recommend she contact PCP torequest an increase in her gabapentin She's having a lot pain in her feet and legs. Patient is also asking for Diflucan for yeast infection. Please send scripts to [facility] documented in this encounterCleveland Clinic Foundation02-23-2022 Miscellaneous Notes* Telephone Encounter - Hallie Martinez APRN.CNP - 01/23/2022 4:35 PM EST Please fax orders for compression hose, wheeled walker and shower chair to [facility]. Orders in my outbox documented in this encounterCleveland Clinic Foundation02-14-2022 Miscellaneous Notes* Telephone Encounter - Silvino Martinez LPN - 01/14/2022 5:30 PM EST [place] 12/12/21 NOV 03/15/22 * Telephone Encounter - Kristine Estes - 01/14/2022 4:55 PM EST Patient has [...] patient. Kristine Marmolejo Pss documented in this encounterCleveland Clinic Foundation09-01-2021 History of Present illness Narrative* Elysia Faust RT(R) - 08/01/2021 3:30 PM EDT Radiology Service Progress Note PATIENT NAME: Macario Wallace DATE OF SERVICE: August 01, 2021 TIME: 3:30 PM PATIENT IDENTITY VERIFICATION COMPLETED USING TWO (2) IDENTIFIERS: Name and Date of confirmedby patient verbally. FALL SCREENING: Has the patient had 2 falls in the last year or 1 fall with injury or currently using an Ambulatory Assistive Device (Walker, Cane, Wheelchair, Crutches, etc.)? No PATIENT GENDER DATA: Female. status: : No status: NO. PATIENT RELEVANT IMPLANT DATA REVIEWED: Not Applicable RADIOLOGY DEPARTMENT: General X-ray: Exam(s) Completed: Chest X-Ray PERIPHERAL IV DATA: Not applicable SIGNED BY: RT Brynn(R) August 01, 2021 3:30 PM documented in this encounterCleveland Clinic Foundation07-20-2021 Miscellaneous Notes* Telephone Encounter - Esthela Weeks LPN - 06/19/2021 3:13 PM EDT Prior Authorization has been completed online at [employer] for Angelo Gore, will await response. FOLEY- [id number] Please keep encounter open until final decision has been received and documented from insurance company. Adalgisa Weeks LPN documented in this encounterCleveland Clinic Foundation12-07-2007 History of Past illness Narrative* Problem Noted Date Resolved Date Acute cholecystitis 11/06/2007 11/20/2021 documented as of this encounter (statuses as of 02/26/2022) [facility] History of Past illness Narrative* Problem Noted Date Resolved Date Acute cholecystitis 11/06/2007 11/20/2021 documented as of this encounter (statuses as of 03/19/2022) [address]-2007 History of Past illness Narrative* Problem Noted Date Resolved Date Acute cholecystitis 11/06/2007 11/20/2021 documented as of this encounter (statuses as of 03/20/2022) [facility] History of Past illness Narrative* Problem Noted Date Resolved Date Acute cholecystitis 11/06/2007 11/20/2021 documented as of this encounter (statuses as of 03/20/2022) [facility] History of Past illness Narrative* Problem Noted Date Resolved Date Acute cholecystitis 11/06/2007 11/20/2021 documented as of this encounter (statuses as of 03/20/2022) [facility] History of Past illness Narrative* Problem Noted Date Resolved Date Acute cholecystitis 11/06/2007 11/20/2021 documented as of this encounter (statuses as of 03/20/2022) [place] [facility]-07-2007 History of Past illness Narrative* Problem Noted Date Resolved Date Acute cholecystitis 11/06/2007 11/20/2021 documented as of this encounter (statuses as of 03/20/2022) [address]2007 History of Past illness Narrative* Problem Noted Date Resolved Date Acute cholecystitis 11/06/2007 11/20/2021 documented as of this encounter (statuses as of 03/28/2022) [address]2007 History of Past illness Narrative* Problem Noted Date Resolved Date Acute cholecystitis 11/06/2007 11/20/2021 documented as of this encounter (statuses as of 03/29/2022) [address] History of Past illness Narrative* Problem Noted Date Resolved Date Acute cholecystitis 11/06/2007 11/20/2021 documented as of this encounter (statuses as of 04/02/2022) [address] History of Past illness Narrative* Problem Noted Date Resolved Date Acute cholecystitis 11/06/2007 11/20/2021 documented as of this encounter (statuses as of 04/03/2022) [facility] History of Past illness Narrative* Problem Noted Date Resolved Date Acute cholecystitis 11/06/2007 11/20/2021 documented as of this encounter (statuses as of 04/10/2022) [address]2007 History of Past illness Narrative* Problem Noted Date Resolved Date Acute cholecystitis 11/06/2007 11/20/2021 documented as of this encounter (statuses as of 05/01/2022) [address]2007 History of Past illness Narrative* Problem Noted Date Resolved Date Acute cholecystitis 11/06/2007 11/20/2021 documented as of this encounter (statuses as of 05/02/2022) [address] History of Past illness Narrative* Problem Noted Date Resolved Date Acute cholecystitis 11/06/2007 11/20/2021 documented as of this encounter (statuses as of 06/03/2022) [address] History of Past illness Narrative* Problem Noted Date Resolved Date Acute cholecystitis 11/06/2007 11/20/2021 documented as of this encounter (statuses as of 06/05/2022) [address]2007 History of Past illness Narrative* Problem Noted Date Resolved Date Acute cholecystitis 11/06/2007 11/20/2021 documented as of this encounter (statuses as of 06/13/2022) [address] History of Past illness Narrative* Problem Noted Date Resolved Date Acute cholecystitis 11/06/2007 11/20/2021 documented as of this encounter (statuses as of 2022) [address]2007 History of Past illness Narrative* Problem Noted Date Resolved Date Acute cholecystitis 11/06/2007 11/20/2021 documented as of this encounter (statuses as of 06/28/2022) [facility] History of Past illness Narrative* Problem Noted Date Resolved Date Acute cholecystitis 11/06/2007 11/20/2021 documented as of this encounter (statuses as of 06/28/2022) [address] History of Past illness Narrative* Problem Noted Date Resolved Date Acute cholecystitis 11/06/2007 11/20/2021 documented as of this encounter (statuses as of 07/03/2022) [facility] History of Past illness Narrative* Problem Noted Date Resolved Date Acute cholecystitis 11/06/2007 11/20/2021 documented as of this encounter (statuses as of 07/11/2022) [address] History of Past illness Narrative* Problem Noted Date Resolved Date Acute cholecystitis 11/06/2007 11/20/2021 documented as of this encounter (statuses as of 07/19/2022) [facility] History of Past illness Narrative* Problem Noted Date Resolved Date Acute cholecystitis 11/06/2007 11/20/2021 documented as of this encounter (statuses as of 07/24/2022) [facility] History of Past illness Narrative* Problem Noted Date Resolved Date Acute cholecystitis 11/06/2007 11/20/2021 documented as of this encounter (statuses as of 07/27/2022) [facility] History of Past illness Narrative* Problem Noted Date Resolved Date Acute cholecystitis 11/06/2007 11/20/2021 documented as of this encounter (statuses as of 08/01/2022) [address] History of Past illness Narrative* Problem Noted Date Resolved Date Acute cholecystitis 11/06/2007 11/20/2021 documented as of this encounter (statuses as of 08/01/2022) [address] History of Past illness Narrative* Problem Noted Date Resolved Date Acute cholecystitis 11/06/2007 11/20/2021 documented as of this encounter (statuses as of 08/16/2022) [address] History of Past illness Narrative* Problem Noted Date Resolved Date Acute cholecystitis 11/06/2007 11/20/2021 documented as of this encounter (statuses as of 08/27/2022) [facility] History of Past illness Narrative* Problem Noted Date Resolved Date Acute cholecystitis 11/06/2007 11/20/2021 documented as of this encounter (statuses as of 09/10/2022) [facility] History of Past illness Narrative* Problem Noted Date Resolved Date Acute cholecystitis 11/06/2007 11/20/2021 documented as of this encounter (statuses as of 10/01/2022) [facility] History of Past illness Narrative* Problem Noted Date Resolved Date Acute cholecystitis 11/06/2007 11/20/2021 documented as of this encounter (statuses as of 10/04/2022) [facility] History of Past illness Narrative* Problem Noted Date Resolved Date Acute cholecystitis 11/06/2007 11/20/2021 documented as of this encounter (statuses as of 10/18/2022) [facility] History of Past illness Narrative* Problem Noted Date Resolved Date Acute cholecystitis 11/06/2007 11/20/2021 documented as of this encounter (statuses as of 10/22/2022) [facility] History of Past illness Narrative* Problem Noted Date Resolved Date Acute cholecystitis 11/06/2007 11/20/2021 documented as of this encounter (statuses as of 10/22/2022) [facility] History of Past illness Narrative* Problem Noted Date Resolved Date Acute cholecystitis 11/06/2007 11/20/2021 documented as of this encounter (statuses as of 10/22/2022) [facility] History of Past illness Narrative* Problem Noted Date Resolved Date Acute cholecystitis 11/06/2007 11/20/2021 documented as of this encounter (statuses as of 10/30/2022) [facility] History of Past illness Narrative* Problem Noted Date Resolved Date Acute cholecystitis 11/06/2007 11/20/2021 documented as of this encounter (statuses as of 11/05/2022) [address] History of Past illness Narrative* Problem Noted Date Resolved Date Acute cholecystitis 11/06/2007 11/20/2021 documented as of this encounter (statuses as of 11/06/2022) [address] History of Past illness Narrative* Problem Noted Date Resolved Date Acute cholecystitis 11/06/2007 11/20/2021 documented as of this encounter (statuses as of 11/11/2022) [address] History of Past illness Narrative* Problem Noted Date Resolved Date Acute cholecystitis 11/06/2007 11/20/2021 documented as of this encounter (statuses as of 11/11/2022) [facility] History of Past illness Narrative* Problem Noted Date Resolved Date Acute cholecystitis 11/06/2007 11/20/2021 documented as of this encounter (statuses as of 12/04/2022) [address] History of Past illness Narrative* Problem Noted Date Resolved Date Acute cholecystitis 11/06/2007 11/20/2021 documented as of this encounter (statuses as of 12/06/2022) [address] History of Past illness Narrative* Problem Noted Date Resolved Date Acute cholecystitis 11/06/2007 11/20/2021 documented as of this encounter (statuses as of 12/12/2022) [facility] History of Past illness Narrative* Problem Noted Date Resolved Date Acute cholecystitis 11/06/2007 11/20/2021 documented as of this encounter (statuses as of 12/13/2022) [facility] History of Past illness Narrative* Problem Noted Date Resolved Date Acute cholecystitis 11/06/2007 11/20/2021 documented as of this encounter (statuses as of 12/25/2022) [address]2007 History of Past illness Narrative* Problem Noted Date Resolved Date Acute cholecystitis 11/06/2007 11/20/2021 documented as of this encounter (statuses as of 12/25/2022) [address]2007 History of Past illness Narrative* Problem Noted Date Resolved Date Acute cholecystitis 11/06/2007 11/20/2021 documented as of this encounter (statuses as of 12/30/2022) [address]2007 History of Past illness Narrative* Problem Noted Date Resolved Date Acute cholecystitis 11/06/2007 11/20/2021 documented as of this encounter (statuses as of 12/31/2022) [address]2007 History of Past illness Narrative* Problem Noted Date Resolved Date Acute cholecystitis 11/06/2007 11/20/2021 documented as of this encounter (statuses as of 01/02/2023) [address]2007 History of Past illness Narrative* Problem Noted Date Resolved Date Acute cholecystitis 11/06/2007 11/20/2021 documented as of this encounter (statuses as of 01/02/2023) [address]2007 History of Past illness Narrative* Problem Noted Date Resolved Date Acute cholecystitis 11/06/2007 11/20/2021 documented as of this encounter (statuses as of 01/03/2023) [address]2007 History of Past illness Narrative* Problem Noted Date Resolved Date Acute cholecystitis 11/06/2007 11/20/2021 documented as of this encounter (statuses as of 01/07/2023) [address]2007 History of Past illness Narrative* Problem Noted Date Resolved Date Acute cholecystitis 11/06/2007 11/20/2021 documented as of this encounter (statuses as of 01/07/2023) [address]2007 History of Past illness Narrative* Problem Noted Date Resolved Date Acute cholecystitis 11/06/2007 11/20/2021 documented as of this encounter (statuses as of 01/13/2023) [facility] History of Past illness Narrative* Problem Noted Date Resolved Date Acute cholecystitis 11/06/2007 11/20/2021 documented as of this encounter (statuses as of 01/14/2023) [address] History of Past illness Narrative* Problem Noted Date Resolved Date Acute cholecystitis 11/06/2007 11/20/2021 documented as of this encounter (statuses as of 01/15/2023) [facility] Tamara Siu [facility] July 15, 2023 1:43pm Note Date/Time July 15, 2023 1: 43pm [facility] Medical Records Department [address] [place] [address] Counseling Note - Pharmacy 07/15/23 1342 MR#: [id number] Acct: [id number] Name: MACARIO WALLACE Rep #:[id number] : 1975 48 From: Tamara Siu PCP: Dr. Tino Oreilly MD Status :ADM JACQUELYN Y Location: [place] [address] Pharmacy [facility] Pharmacy Service has performed discharge medication reconciliation and counseling for this patient. 1. METOLAZONE 2.5MG PO DAILY ON TUESDAYS AND THURSDAYS The patient's discharge medication list was reviewed for discrepancies and discrepancies were resolved. The patient was counseled on the following discharge medications and changes in medications for homegoing were reviewed. The Reason for Use, instructions for use, and potential side effects were reviewed for all new medications. The patient's questions regarding all of their medications were answered. The patient was able to verbally demonstrate an understanding of their dischargemedications. Patient counseled by pharmacy technician per diemMaya. Medications at Discharge Home Medications multivit-iron 18 mg-folic acid 400 mcg-calcium 500 mg-minerals tablet 1 ea PO DAILY supplement 03/26/17 omeprazole 40 mg capsule,delayed release 40 mg PO DAILY GERD 12/15/18 loratadine 10 mg tablet 10 mg PO DAILY PRN Allergies 03/01/20 apixaban 5 mg tablet 5 mg PO BID blood thinner 08/20/20 diltiazem HCl 120 mg capsule,extended release 24 hr 120 mg PO DAILY heart rate 08/20/20 lisinopril 10 mg tablet 10 mg PO DAILY blood pressure 03/26/21 metformin 500 mg tablet,extended release 24 hr 2,000 mg PO DAILY diabetes 03/26/21 metoprolol succinate 25 mg tablet,extended release 24 hr 25 mg PO DAILY blood pressure 03/26/21 atorvastatin 80 mg tablet 80 mg PO QHS cholesterol 02/07/22 furosemide 40 mg tablet 80 mg PO BID diuretic 09/22/22 insulin lispro 100 unit/mL subcutaneous pen (Humalog KwikPen (U-100) Insulin) 50unit (0.5 mL) subcut TIDAC #0 mL 09/24/22 albuterol sulfate 2.5 mg/3 mL (0.083 %) solution for nebulization 2.5 mg inhalation Q4H PRN SOB 12/09/22 empagliflozin 10 mg tablet (Jardiance) 10 mg PO DAILY DM 12/09/22 fenofibrate nanocrystallized 145 mg tablet 145 mg PO DAILY CHOLESTEROL 12/09/22 furosemide 20 mg tablet 20 mg PO PRN PRN Edema 12/09/22 potassium chloride 20 mEq tablet,extended release(part/cryst) See Rx Instructions .Route .COMPLEX supplement #60 TABLETS 06/20/23 citalopram 20 mg tablet 20 mg PO DAILY mental health 07/14/23 insulin glargine U-300 conc 300 unit/mL (3 mL) subcutaneous pen (Toujeo Max U- 300 SoloStar) 104 unit subcut BID diabetes 07/14/23 lorazepam 0.5 mg tablet 0.5 mg PO Q12H PRN anxiety 07/14/23 nicotine 21 mg/24 hr daily transdermal patch 1 patch topical Q24H quit smoking 07/14/23 semaglutide 1 mg/dose (4 mg/3 mL) subcutaneous pen injector (Ozempic) 1 mg subcut .1XW diabetes 07/14/23 metolazone 2.5 mg tablet 2.5 mg PO .every / #8 tabs 07/15/23 07/15/23 1343 <Electronically signed by Tamara Siu> Date _ Tamara Siu Cosigner Signature (if applicable): Date CC: ~ Signed [facility] Work Phone: Consult note Author Chandan Jacob [facility] Note Date/Time August 19, 2025 4:02pm [facility] Medical Records Department [facility] [place] [address] Counseling Note - Pharmacy 08/19/25 2277 MR#: [id number] Acct: [id number] Name: MACARIO WALLACE Rep #:[id number] : 1975 50 From: Chandan Jacob PCP: Dr. Delmy Solorzano MD Status:ADM IN Y Location: [place] [address] Pharmacy [facility] Counseling Pharmacy Service has performed discharge medication reconciliation and counseling for this patient. The patient's discharge medication list was reviewed for discrepancies and discrepancies were resolved. The patient was counseled on the following discharge medications and changes in medications for homegoing were reviewed. The Reason for Use, instructions for use, and potential side effects were reviewed for all new medications. The patient's questions regarding all of their medications were answered. 1. Augmentin 875 PO BID x 7 days 2. Doxycycline 100 mg PO BID x 7 days The patient was able to verbally demonstrate an understanding of their dischargemedications. Medications at Discharge Home Medications multivit-iron 18 mg-folic acid 400 mcg-calcium 500 mg-minerals tablet 1 ea PO DAILY supplement 03/26/17 omeprazole 40 mg capsule,delayed release 40 mg PO DAILY GERD 12/15/18 loratadine 10 mg tablet 10 mg PO DAILY PRN Allergies 03/01/20 apixaban 5 mg tablet 5 mg PO BID blood thinner 08/20/20 diltiazem HCl 120 mg capsule,extended release 24 hr 120 mg PO DAILY heart rate 08/20/20 lisinopril 10 mg tablet 10 mg PO DAILY blood pressure 03/26/21 metformin 500 mg tablet,extended release 24 hr 1,000 mg PO DAILY diabetes 03/26/21 metoprolol succinate 25 mg tablet,extended release 24 hr 25 mg PO DAILY blood pressure 03/26/21 atorvastatin 80 mg tablet 80 mg PO QHS cholesterol 02/07/22 furosemide 40 mg tablet 80 mg PO DAILY diuretic 09/22/22 albuterol sulfate 2.5 mg/3 mL (0.083 %) solution for nebulization 2.5 mg inhalation Q4H PRN SOB 12/09/22 fenofibrate nanocrystallized 145 mg tablet 145 mg PO DAILY CHOLESTEROL 12/09/22 insulin glargine U-300 conc 300 unit/mL (3 mL) subcutaneous pen (Toujeo Max U- 300 SoloStar) 104 unit subcut BID diabetes 07/14/23 semaglutide 1 mg/dose (4 mg/3 mL) subcutaneous pen injector (Ozempic) 1 mg subcut .1XW diabetes 07/14/23 metolazone 2.5 mg tablet 2.5 mg PO .every tu/thurs #8 tabs 07/15/23 oxycodone-acetaminophen 5 mg-325 mg tablet (Percocet) 1 tab PO Q6H PRN pain 3 days #12 tabs 01/15/24 potassium chloride 20 mEq tablet,extended release(part/cryst) See Rx Instructions .Route .COMPLEX #60 TABLETS 08/05/24 duloxetine 60 mg capsule,delayed release 60 mg PO DAILY 11/09/24 ergocalciferol (vitamin D2) 1,250 mcg (50,000 unit) capsule (Vitamin D2) 1,250 mcg PO QWEEK vitamin 11/09/24 ferrous sulfate 325 mg (65 mg iron) tablet (FeroSul) 325 mg PO DAILY supplement 11/09/24 lorazepam 1 mg tablet 1 mg PO TID anxiety 11/09/24 doxycycline monohydrate 100 mg capsule 100 mg PO BID 5 days #10 caps 11/12/24 methocarbamol 750 mg tablet 1,500 mg PO TID muscle spasm 08/16/25 oxycodone 15 mg tablet 15 mg PO Q6H PRN PRN pain 08/16/25 pregabalin 150 mg capsule 150 mg PO TID pain 08/16/25 semaglutide 2 mg/dose (8 mg/3 mL) subcutaneous pen injector (Ozempic) mg subcut 08/16/25 amoxicillin 875 mg-potassium clavulanate 125 mg tablet 1 tab PO BID #14 tabs 08/19/25 doxycycline hyclate 100 mg capsule 100 mg PO BID 7 days #14 caps 08/19/25 08/19/25 7008 <Electronically signed by Chandan peralta> Date _ Chandan Becerriligner Signature (if applicable): Date CC: ~ Signed [facility] Work Phone: Discharge summary Author Dr. Wilkes [facility] December 20, 2022 4:11pm Note Date/Time December 20, 2022 3 :12pm [facility] Medical Records Department [address] [place] [address] Discharge Summary 12/20/22 1510 MR#: [id number] Acct: [id number] Name: MACARIO WALLACE Rep #:[id number] : 1975 47 From: Liam regalado MD PCP: Dr. Tino Oreilly MD Status :ADM IN Location: [place] [id number] Providers Date of Admission: 12/18/22 Primary Care Physician: Dr. Tino Oreilly MD Consultations 12/20/22 07:38 Consult: Onc/Wound/photographic press screwmaker Routine Comment: Reason for Consult:: wounds Comments:: left inner thigh/gluteal fold, coccyx Reason For Visit: KERRY, DEBILITY Diagnosis Discharge Diagnosis (1) Unable to ambulate: Status: Acute Code(s): R26.2 - Difficulty in walking, not elsewhere classified (2) KERRY (acute kidney injury): Status: Acute Code(s): N17.9 - Acute kidney failure, unspecified (3) Metabolic encephalopathy: Status: Acute Code(s): G93.41 - Metabolic encephalopathy (4) Type 2 diabetes mellitus: Status: Chronic Code(s): E11.9 - Type 2 diabetes mellitus without complications Qualifiers: Diabetes mellitus intermediate teacher insulin use: with residential use Diabetes mellitus complication status: with hyperosmolarity Diabetes mellitus complication detail: with coma Qualified Code(s): E11.01 - Type 2 diabetes mellitus with hyperosmolarity with coma; Z79.4 - nursing home (current) use of insulin (5) Essential hypertension: Status: Chronic Code(s): I10 - Essential (primary) hypertension Plan 1. KERRY on CKD 3a/acute metabolic encephalopathy/debility ? Jus encephalopathy is likely due to her acute renal failure ? Continue with IV fluids ? We will monitor renal function ? Attempting to verify her home medications ? PT/OT for evaluation 2. DM2/morbid obesity ? Continue with sliding scale insulin ? Accu-Cheks AC at bedtime ? We will make adjustment as necessary ? BMI of 60 3. COPD ? PCO2 is at baseline, she is slightly acidotic on ABG yesterday ? We will continue to encourage wearing her CPAP ? She did just complete a dose of steroids as well as a course of doxycycline she continues to have a leukocytosis we will monitor 4. HTN/HLD ? We will try to verify her home medications and restart her meds DVT: Lovenox Medications at Discharge Home Medications multivit-iron 18 mg-folic acid 400 mcg-calcium 500 mg-minerals tablet 1 ea PO DAILY supplement 03/26/17 omeprazole 40 mg capsule,delayed release 40 mg PO DAILY GERD 12/15/18 loratadine 10 mg tablet 10 mg PO DAILY PRN Allergies 03/01/20 apixaban 5 mg tablet 5 mg PO BID blood thinner 08/20/20 diltiazem HCl 120 mg capsule,extended release 24 hr 120 mg PO DAILY heart rate 08/20/20 lisinopril 10 mg tablet 10 mg PO DAILY blood pressure 03/26/21 metformin 500 mg tablet,extended release 24 hr 2,000 mg PO DAILY diabetes 03/26/21 metoprolol succinate 25 mg tablet,extended release 24 hr 25 mg PO DAILY blood pressure 03/26/21 dulaglutide 4.5 mg/0.5 mL subcutaneous pen injector (Trulicity) 4.5 mg subcut WEDM 01/15/22 atorvastatin 80 mg tablet 100 mg PO QHS Check with primary doctor 02/07/22 furosemide 40 mg tablet 40 mg PO BID diuretic 09/22/22 ammonium lactate 12 % lotion 1 applic topical TID 30 days #400 grams 09/24/22 insulin degludec 200 unit/mL (3 mL) subcutaneous pen (Tresiba FlexTouch U-200 insulin) 95 unit (0.475 mL) subcut BID DM 30 days #28.5 mL 09/24/22 insulin lispro 100 unit/mL subcutaneous pen (Humalog KwikPen (U-100) Insulin) 50unit (0.5 mL) subcut TIDAC #0 mL 09/24/22 albuterol sulfate 2.5 mg/3 mL (0.083 %) solution for nebulization 2.5 mg inhalation Q4H PRN SOB 12/09/22 doxycycline monohydrate 100 mg capsule 100 mg PO BID #14 CAPSULES 12/09/22 empagliflozin 10 mg tablet (Jardiance) 10 mg PO DAILY DM 12/09/22 fenofibrate nanocrystallized 145 mg tablet 145 mg PO DAILY CHOLESTEROL 12/09/22 furosemide 20 mg tablet 20 mg PO DAILY diuretic 12/09/22 gabapentin 800 mg tablet 800 mg PO TID NERVE PAIN 12/09/22 insulin glargine U-300 conc 300 unit/mL (3 mL) subcutaneous pen (Toujeo Max U- 300 SoloStar) 150 unit subcut DAILY DM 12/09/22 nicotine (polacrilex) 2 mg buccal mini lozenge 2 mg PO PRN PRN Smoking Lajpiyndh61/09/23 prednisone 20 mg tablet 60 mg PO DAILY #12 TABLETS 12/09/22 potassium chloride 20 mEq tablet,extended release 20 meq PO BID Check with primary doctor 12/19/22 Hospital Course Operations None Procedures None Summary of Care Provided Minutes Spent on Discharge: 34 Hospital Course: Per HPI: MACARIO WALLACE, is a 47 F with a significant history of morbid obesity; diabetes mellitus; hypertension; and tobacco abuse who presents to emergency department with somnolence. Patient's family was called because patient was in bed all day.? Reportedly patient family called paramedics to check on patient.? When paramedics arrived patient refused to come to the emergency department.? Patient's family later went to check on her and realized that patient could not walk.? Paramedics were called and patient was brought to the emergency department. Patient uses 4 to 5 L nasal cannula oxygen [id number] and CPAP at night tosleep.? Reportedly patient did not use either her CPAP oxygen on the day of presentation. Hospital Course: 1.? KERRY on CKD 3a/acute metabolic encephalopathy from acute on chronic hypoxic and hypercapnic respiratory failure/debility ? Jus encephalopathy is likely due to her acute renal failure ? Continue with IV fluids ? We will monitor renal function ? Attempting to verify her home medications ? PT/OT for evaluation ? KERRY has completely resolved and her creatinine is back to baseline, she is alert today and not confused she states that she just did not wear her BiPAP because she does not like it but she understands now that she needs to be wearing it to prevent this from happening in the future. Her leukocytosis is potentially reactive as it improved on its own without any antibiotics would recommend outpatient follow-up with her PCP next week, I did notify his office. She has continually declined SNF placement but did agree to home health servicesand they will be able to come out next week for an evaluation people. She can resume all of her home medications on discharge. It does appear that she had anabscess in her left gluteal fold that has since resolved, it is open but there is no active draining and there is no surrounding redness, she did just completea course of doxycycline on the th or 18th of this month. Do recommend monitoring of the area and initiation of antibiotics if necessary, [facility]. 2.? DM2/morbid obesity ? Continue with sliding scale insulin ? Accu-Cheks AC at bedtime ? We will make adjustment as necessary ? BMI of 60 3.? COPD ? PCO2 is at baseline, she is slightly acidotic on ABG yesterday ? We will continue to encourage wearing her CPAP ? She did just complete a dose of steroids as well as a course of doxycycline she continues to have a leukocytosis which improved overnight without any intervention 4.? HTN/HLD ? We will try to verify her home medications and restart her meds Physical Exam Narrative General: Alert, Oriented x3, Cooperative, No apparent distress, morbidly obese HEENT: Atraumatic, PERRLA, EOMI, Normocephalic Oral: Moist Mucosa Neck: Supple, No JVD Lungs: Diminished, Normal air movement, No rhonchi, No wheeze, No rales Cardiovascular: Regular rate, Regular Rhythm, Normal S1, Normal S2, No murmurs Abdomen: Soft, Non Tender, Non-Distended, No Hepato-splenomegaly Extremities: No edema, Capillary Refill Less than 3 Seconds Skin: Venous stasis changes in her bilateral lower extremities, 1 cm opening on her left gluteal fold with no drainage or surrounding erythema Musculoskeletal: No Tenderness to Palpation of Joints or Extremities Neurological: Cranial nerves II-XII grossly intact, Motor Exam 5/5 strength throughout, Sensory exam intact to light touch and pain Psych/Mental Status: Flat affect, Appropriate Weight / BMI Weight Weight: 383 lb 13.196 oz Body Mass Index (BMI) 60.1 ABG / Lab / Microbiology Data Result Diagrams: 12/20/22 04:47 12/20/22 04:47 Laboratory: Laboratory Results - last 24 hr 12/19/22 17:06: POC Glucose 177 H 12/19/22 21:48: POC Glucose 277 H 12/20/22 04:47: WBC 13.8 H, RBC 3.65 L, Hgb 10.5 L, Hct 34.5 L, MCV 94.5, MCH 28.8, MCHC 30.4 L, RDW Std Deviation 57.7 H, RDW Coeff of Darrion 16.5 H, Plt Count 225, MPV 10.4, Immature Gran % (Auto) 0.700, Neut % (Auto) 81.4 H, Lymph % (Auto) 10.5 L, Defiance % (Auto) 6.3, Eos % (Auto) 0.7, Baso % (Auto) 0.4, Absolute Neuts (auto) 11.2 H, Absolute Lymphs (auto) 1.45, Nucleated RBC % 0 12/20/22 04:47: Sodium 136, Potassium 4.8, Chloride 103, Carbon Dioxide 27.0, Anion Gap 6, BUN 56 H, Creatinine 1.12 H, Estim Creat Clear Calc 61.68, Est GFR (MDRD) Af Amer 68, Est GFR (MDRD) Non-Af 56 L, BUN/Creatinine Ratio 50.0 H, Glucose 170 H, Calcium 9.1 12/20/22 06:22: POC Glucose 168 H 12/20/22 11:55: POC Glucose 289 H D/C Instructions Discharge Diet: Low fat / Low cholesterol and 1800 Calorie Control Diet Call your doctor if you observe: Fever of 101 or Higher, Shortness of breath, Dizziness, Fainting spells, Swelling in the ankles, Chest pain and Increased palpitations (irregular heartbeat) Meaningful Use Info Meaningful Use Diagnoses (Choose all that apply): None applicable Discharge Plan Admission Admit Date/Time: 12/18/22 23:36 Attending Provider: Liam Wilkes Primary Care Provider: Tino Oreilly Consulting Providers: Chris Gill Discharge Orders/Prescriptions Prescriptions: Continued loratadine 10 mg tablet 10 mg PO DAILY PRN (Reason: Allergies) lisinopril 10 mg tablet 10 mg PO DAILY Label Comments: TAKE 1 TABLET BY MOUTH EVERY DAY metformin 500 mg tablet extended release 24 hr 2,000 mg PO DAILY metoprolol succinate 25 mg tablet extended release 24 hr 25 mg PO DAILY Label Comments: TAKE 1 TABLET BY MOUTH EVERY DAY atorvastatin 80 mg tablet 100 mg PO QHS [id number]-[id number]-calcium-mins 1 EACH tablet 1 ea PO DAILY Label Comments: vitamin omeprazole 40 MG capsule,delayed release(DR/EC) 40 mg PO DAILY diltiazem HCl 120 MG capsule 120 mg PO DAILY apixaban 5 MG tablet 5 mg PO BID Trulicity 4.5 mg/0.5 mL pen injector 4.5 mg SUBCUT WE Label Comments: Inject 4.5 mg subcutaneously one time a week. furosemide 40 mg tablet 40 mg PO BID Label Comments: Take 1 tablet by mouth twice daily. insulin lispro [Humalog KwikPen Insulin] 100 unit/mL Insulin Pen 50 unit subcut TIDAC Qty: 0 0RF ammonium lactate 12 % Lotion 1 applic topical TID 30 Days Qty: 400 0RF Protocol: *Topical Application Instructions APPLICATION INSTRUCTIONS: apply to both legs andaffected dry areas of the body insulin degludec [Tresiba FlexTouch U-200] 200 unit/mL (3 mL) insulin pen 95 unit SUBCUT BID 30 Days Qty: 28.5 0RF Label Comments: INJECT 100 UNITS SUBCUTANEOUSLY TWICE DAILY (this replaces levemir) albuterol sulfate 2.5 mg /3 mL (0.083 %) solution for nebulization 2.5 mg inhalation Q4H PRN (Reason: SOB) gabapentin 800 mg tablet 800 mg PO TID furosemide 20 mg tablet 20 mg PO DAILY fenofibrate nanocrystallized 145 mg tablet 145 mg PO DAILY Jardiance 10 mg tablet 10 mg PO DAILY nicotine (polacrilex) 2 mg mini lozenge 2 mg PO PRN PRN (Reason: Smoking Cessation) Toujeo Max U-300 SoloStar 300 unit/mL (3 mL) insulin pen 150 unit SUBCUT DAILY prednisone 20 mg tablet 60 mg PO DAILY Qty: 12 0RF doxycycline monohydrate 100 mg capsule 100 mg PO BID Qty: 14 0RF potassium chloride 20 mEq tablet extended release 20 meq PO BID Referrals / Follow Up: Tino Oreilly MD [Primary Care Provider] - 12/27/22 10:00 am Disposition Disposition (needs filled in before D/C Order can be placed): Home Health Service Charges/Coding Visit Charges Inpatient E&M: 68410 Disch Hosp >30min 12/20/22 1611 <Electronically signed by Liam Wilkes MD> Cosigner Signature (if applicable): CC: Dr. Tino Oreilly MD; Dr. Liam Wilkes MD~ Signed [facility] Work Phone: Discharge summary Author Belem Aponte [facility] July 15, 2023 12:23pm Note Date/Time July 15, 2023 12 :03pm [facility] Medical Records Department [address] [place] [address] Discharge Summary 07/15/23 1203 MR#: [id number] Acct: [id number] Name: MACARIO WALLACE Rep #:[id number] : 1975 48 From: Belem Aponte DO PCP: Dr. Tino Oreilly MD Status :ADM JACQUELYN Location: [place] [id number] Providers Date of Admission: 07/14/23 Date of Discharge: 07/15/23 Primary Care Physician: Dr. Tino Oreilly MD Reason For Visit: VOLUME OVERLOAD Diagnosis Discharge Diagnosis (1) CHF (congestive heart failure): Status: Acute Code(s): I50.9 - Heart failure, unspecified Medications at Discharge Home Medications multivit-iron 18 mg-folic acid 400 mcg-calcium 500 mg-minerals tablet 1 ea PO DAILY supplement 03/26/17 omeprazole 40 mg capsule,delayed release 40 mg PO DAILY GERD 12/15/18 loratadine 10 mg tablet 10 mg PO DAILY PRN Allergies 03/01/20 apixaban 5 mg tablet 5 mg PO BID blood thinner 08/20/20 diltiazem HCl 120 mg capsule,extended release 24 hr 120 mg PO DAILY heart rate 08/20/20 lisinopril 10 mg tablet 10 mg PO DAILY blood pressure 03/26/21 metformin 500 mg tablet,extended release 24 hr 2,000 mg PO DAILY diabetes 03/26/21 metoprolol succinate 25 mg tablet,extended release 24 hr 25 mg PO DAILY blood pressure 03/26/21 atorvastatin 80 mg tablet 80 mg PO QHS cholesterol 02/07/22 furosemide 40 mg tablet 80 mg PO BID diuretic 09/22/22 insulin lispro 100 unit/mL subcutaneous pen (Humalog KwikPen (U-100) Insulin) 50unit (0.5 mL) subcut TIDAC #0 mL 09/24/22 albuterol sulfate 2.5 mg/3 mL (0.083 %) solution for nebulization 2.5 mg inhalation Q4H PRN SOB 12/09/22 empagliflozin 10 mg tablet (Jardiance) 10 mg PO DAILY DM 12/09/22 fenofibrate nanocrystallized 145 mg tablet 145 mg PO DAILY CHOLESTEROL 12/09/22 furosemide 20 mg tablet 20 mg PO PRN PRN Edema 12/09/22 potassium chloride 20 mEq tablet,extended release(part/cryst) See Rx Instructions .Route .COMPLEX #60 TABLETS 06/20/23 citalopram 20 mg tablet 20 mg PO DAILY 07/14/23 insulin glargine U-300 conc 300 unit/mL (3 mL) subcutaneous pen (Toujeo Max U- 300 SoloStar) 104 unit subcut BID 07/14/23 lorazepam 0.5 mg tablet 0.5 mg PO Q12H PRN anxiety 07/14/23 nicotine 21 mg/24 hr daily transdermal patch 1 patch topical Q24H 07/14/23 semaglutide 1 mg/dose (4 mg/3 mL) subcutaneous pen injector (Ozempic) 1 mg subcut .1XW 07/14/23 metolazone 2.5 mg tablet 2.5 mg PO .every / #8 tabs 07/15/23 Hospital Course Operations None Procedures EKG and - (Chest x-ray) Summary of Care Provided Minutes Spent on Discharge: 28 Hospital Course: Ms. Wallace is a 48-year-old female with chronic hypoxic and hypercapnic respiratory failure who presented to the emergency department on 07/14/2023 with feeling more short of breath, having more lower extremity swelling and some slight chest pressure with no pain. She noted that she had gained some weight. She is well-known to this facility and has previously had been admitted for Lasix drips and extended hospitalizations. She reported that she wanted to present this time before she got to severe and had to have an extended hospitalization. Her renal function and oxygen requirements at admission were at baseline. She indicated she was recently in [place] visiting her mother and had to be hospitalized and intubated in dialysis to get extra fluid off for severe volume overload. She indicated she was following a fluid and salt restricted diet. She is on Lasix 80 mg p.o. twice daily. She had a recent echocardiogram on 04/24/2023 that showed an EF of 55% and pulmonary systolic pressure of 30 mmHg. Her vital signs were essentially unremarkable on her baseline oxygen at the timeof admission. Her CBC showed a chronic stable anemia but she had a normal whitecount with no left shift indicative of infection. Her chemistry panel was unremarkable. Troponins were cycled and normal x3. Her BNP was 40.4. Her chest x-ray showed mild vascular congestion/CHF. EKG was unremarkable. She wasadmitted to the PCU and placed on IV Lasix overnight. By the a.m. of 07/15/2023 the patient states she felt much better and was back to her baseline and would like to go home. We discussed the importance of monitoring her fluid intake andsodium intake. She acknowledged this and states that she has been trying. We will maintain her on her home Lasix dose and I will add metolazone 2.5 mg twice weekly on Friday and to see if this helps keep volume off. This may need to be titrated up but will allow outpatient follow-up to see if this needs to be increased. She will need a basic metabolic profile to be done in about 1 to 2 weeks to assess her electrolytes with the addition of the biweekly metolazone. She will maintain her home oxygen supplementation I have asked her to follow-up with pulmonary medicine in the next month if able as she has missedher last appointment with them. She will seem to follow-up with her primary care physician within the next 1 to 2 weeks. She was discharged home in stable condition on her baseline oxygen with the addition of metolazone on 07/15/2023. Discharge diagnoses: Shortness of breath-resolved Chest pain-resolved Edema-return to baseline Chronic hypoxic and hypercapnic respiratory failure Acute on chronic diastolic and right-sided heart failure DM-2 Chronic anemia GERD History of PE Diabetic neuropathy LOGAN Obesity hypoventilation syndrome Hyperlipidemia Depression Hypertension Tobacco abuse Physical Exam Narrative Patient states she is feeling much better with diuresis and she states that she is back to her baseline. She states her swelling is better and she has no breathing difficulties at this point. Chest heaviness is resolved. Const alert, oriented x3, no apparent distress, no limitations and well nourished; Negative for average body habitus or healthy appearing Constitutional Narrative: Morbidly obese, middle-aged, white female, sitting up in a chair at the bedside,appears comfortable and nontoxic, on her baseline oxygen General Appearance: cooperative, comfortable, well kempt and well developed Orientation / Consciousness: awake, oriented to person, oriented to place and oriented to time Exam Limitations: no limitations Nutritional Appearance: morbidly obese HEENT normocephalic, head/scalp atraumatic, hearing grossly normal bilaterally and moist oral mucous membranes HEENT Narrative: Mallampati 4, no thrush Resp normal respiratory effort, no retractions, no use of accessory muscles and clearto auscultation bilaterally Resp Narrative: Diminished diffusely but clear with no crackles Auscultation: Negative for rales, rhonchi or wheezes Cardio regular rate, regular rhythm, S1 normal heart sound, S2 normal heart sound, no murmurs, no rub, no gallops and no clicks GI normal to inspection, nondistended, normoactive bowel sounds, soft to palpation and non-tender GI Narrative: Large protuberant abdomen Extremity Extremity Narrative: 1+ bilateral pitting edema with skin changes consistent with venous stasis, no clubbing or cyanosis Neuro oriented x3, moves all extremities and no focal motor deficits Speech: speech normal Psych affect normal Psych Narrative: Eye contact is good and patient is very pleasant Weight / BMI Weight Weight: 170.3 kg Body Mass Index (BMI) 62.4 ABG / Lab / Microbiology Data 07/15/23 06:15 07/15/23 06:15 Laboratory: Laboratory Results - last 24 hr 07/14/23 13:03: WBC 8.9, RBC 3.47 L, Hgb 9.2 L, Hct 30.8 L, MCV 88.8, MCH 26.5 L, MCHC 29.9 L, RDW Std Deviation 58.5 H, RDW Coeff of Darrion 18.4 H, Plt Count 317,MPV 9.2, Immature Gran % (Auto) 3.900 H, Neut % (Auto) 67.8, Lymph % (Auto) 21.4, Defiance % (Auto) 4.5, Eos % (Auto) 1.8, Baso % (Auto) 0.6, Absolute Neuts (auto) 6.1, Absolute Lymphs (auto) 1.91, Nucleated RBC % 0.2, Sodium 140, Potassium 4.4, Chloride 101, Carbon Dioxide 36.0 H, Anion Gap 3 L, BUN 19 H, Creatinine 1.06 H, Estim Creat Clear Calc 59.67, Est GFR (MDRD) Af Amer 72, Est GFR (MDRD) Non-Af 59 L, BUN/Creatinine Ratio 17.9, Glucose 223 H, Calcium 9.0, Troponin I High Sens 18, B-Natriuretic Peptide 40.4 07/14/23 15:14: Troponin I High Sens 17 07/14/23 16:13: POC Glucose 169 H 07/14/23 18:09: POC Glucose 144 H 07/14/23 21:12: POC Glucose 217 H 07/15/23 06:15: WBC 11.0, RBC 3.74 L, Hgb 9.4 L, Hct 33.7 L, MCV 90.1, MCH 25.1 L, MCHC 27.9 L D, RDW Std Deviation 59.6 H, RDW Coeff of Darrion 18.6 H, Plt Count 355, MPV 9.5, Immature Gran % (Auto) 4.200 H, Neut % (Auto) 67.0, Lymph % (Auto)21.4, Defiance % (Auto) 4.5, Eos % (Auto) 2.1, Baso % (Auto) 0.8, Absolute Neuts (auto) 7.4, Absolute Lymphs (auto) 2.35, Nucleated RBC % 0.4, Sodium 140, Potassium 4.3, Chloride 100, Carbon Dioxide 36.0 H, Anion Gap 4 L, BUN 20 H, Creatinine 0.92, Estim Creat Clear Calc 68.75, Est GFR (MDRD) Af Amer 85, Est GFR (MDRD) Non-Af 70, BUN/Creatinine Ratio 21.9 H, Glucose 146 H, Calcium 9.3 07/15/23 08:22: POC Glucose 191 H 07/15/23 11:08: POC Glucose 167 H D/C Instructions Discharge Diet: Low fat / Low cholesterol, 1800 Calorie Control Diet, 8 Cup Fluid Restriction and 2000 mg Sodium Diet Discharge Activity: Return to Normal Activity Meaningful Use Info Meaningful Use Diagnoses (Choose all that apply): None applicable Discharge Plan Admission Admit Date/Time: 07/14/23 16:31 Primary Reason for Your Visit: Shortness of Breath and Edema Attending Provider: Belem Aponte Primary Care Provider: Tino Oreilly Consulting Providers: Liam Wilkes Instructions Additional Instructions / Restrictions: 1. If you start to notice that lying increases okay to take an extra 40 mg doseof Lasix in a 24-hour period 2. Strictly continue to monitor fluid intake to 1.5 to 2 L daily and monitor salt intake for 2 g or less daily Discharge Orders/Prescriptions Prescriptions: New metolazone 2.5 mg tablet 2.5 mg PO .every / Qty: 8 1RF Continued loratadine 10 mg tablet 10 mg PO DAILY PRN (Reason: Allergies) lisinopril 10 mg tablet 10 mg PO DAILY Patient Comments: TAKE 1 TABLET BY MOUTH EVERY DAY metformin 500 mg tablet extended release 24 hr 2,000 mg PO DAILY metoprolol succinate 25 mg tablet extended release 24 hr 25 mg PO DAILY Patient Comments: TAKE 1 TABLET BY MOUTH EVERY DAY atorvastatin 80 mg tablet 80 mg PO QHS ulslqrbe-ptfy-OJ-calcium-mins 1 EACH tablet 1 ea PO DAILY Patient Comments: vitamin omeprazole 40 MG capsule,delayed release(DR/EC) 40 mg PO DAILY diltiazem HCl 120 MG capsule 120 mg PO DAILY apixaban 5 MG tablet 5 mg PO BID furosemide 40 mg tablet 80 mg PO BID insulin lispro [Humalog KwikPen Insulin] 100 unit/mL Insulin Pen 50 unit subcut TIDAC Qty: 0 0RF albuterol sulfate 2.5 mg /3 mL (0.083 %) solution for nebulization 2.5 mg inhalation Q4H PRN (Reason: SOB) furosemide 20 mg tablet 20 mg PO PRN PRN (Reason: Edema) fenofibrate nanocrystallized 145 mg tablet 145 mg PO DAILY Jardiance 10 mg tablet 10 mg PO DAILY citalopram 20 mg tablet 20 mg PO DAILY Toujeo Max U-300 SoloStar 300 unit/mL (3 mL) insulin pen 104 unit SUBCUT BID lorazepam 0.5 mg tablet 0.5 mg PO Q12H PRN (Reason: anxiety) Patient Comments: Take one (1) tablet by mouth every 12 hours, as needed for anxiety. PALLIATIVE PATIENT nicotine 21 mg/24 hr patch 24 hour 1 patch topical Q24H Ozempic 1 mg/dose (4 mg/3 mL) pen injector 1 mg SUBCUT .1XW potassium chloride 20 mEq tablet,ER particles/crystals See Rx Instructions .ROUTE .COMPLEX Qty: 60 0RF Dose Instruction: TAKE 1 TABLET BY MOUTH TWICE A DAY Rx Instructions: TAKE 1 TABLET BY MOUTH TWICE A DAY Referrals / Follow Up: Tino Oreilly MD [Primary Care Provider] - Within 2 Weeks Nelly Hunter NP, [facility] [[facility] - [facility]] - Within 1 Month (callfor appt) Disposition Disposition (needs filled in before D/C Order can be placed): Home, Self Care Charges/Coding Visit Charges Inpatient E&M: 82492 Disch Hosp 07/15/23 1223 <Electronically signed by Belem Aponte DO> Cosigner Signature (if applicable): CC: Dr. Tino Oreilly MD; Dr. Belem Aponte DO~ Signed [facility] Work Phone: Discharge summary Author Eulogio Jiang [facility] January 15, 2024 12:23am Note Date/Time January 15, 2024 12:13am [facility] Medical Records Department [address] [place] [address] Emergency Department Summary 01/15/24 MR#: [id number] Acct: [id number] Name: MACARIO WALLACE Rep #:[id number] : 1975 48 From: Eulogio Jiang DO PCP: Dr. Delmy Solorzano MD Status:REG ER Location: ED HPI History of Present Illness Chief Complaint: Cellulitis Informant: patient Narrative Narrative: Patient is a 48-year-old female with past medical history of morbid obesity type2 diabetes and chronic diastolic heart failure. She reports that over the past few days she feels like her legs have been more swollen than normal. She statesshe has been feeling increased shortness of breath and increase her oxygen 4 L to 5 L. She states that she weighed herself and she had increased by a few pounds. She also notices increased redness to her lower legs. She does have concern for developing infection and potential fluid overload and therefore comes in for evaluation. [facility] Medical History (Updated 01/15/24 @ 00:[address] Eulogio Jiang DO) Abscess Abscess of vulva Acute on chronic respiratory failure with hypoxia and hypercapnia KERRY (acute kidney injury) Anemia Anxiety Arthritis BiPAP (biphasic positive airway pressure) dependence BMI 60.0-69.9, adult CHF (congestive heart failure) Chronic diastolic (congestive) heart failure Chronic respiratory failure with hypoxia Congestive heart failure Contusion of knee, right COPD (chronic obstructive pulmonary disease) Depression Diabetes Dyspnea on exertion Essential hypertension GERD (gastroesophageal reflux disease) Hidradenitis History of diabetes mellitus History of left heart catheterization (LHC) (~01/05/19) History of MRSA infection Hyperglycemia due to type 2 diabetes mellitus Hyperlipidemia Hypertension Hypoxia Morbid obesity Morbid obesity Necrotizing soft tissue infection Non-healing open wound of left groin Non-smoker Noncompliance with CPAP treatment NSTEMI (non-ST elevated myocardial infarction) 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 Old myocardial infarction On home oxygen therapy Open wound of vulva with complication Opiate overdose Perianal abscess Pulmonary embolism Respiratory failure with hypoxia Restrictive lung disease secondary to obesity Sleep apnea Smoker Soft tissue abscess of inguinal region Tobacco abuse Type 2 diabetes mellitus Type 2 diabetes mellitus with hyperglycemia Venous stasis dermatitis of both lower extremities Home Medications multivit-iron 18 mg-folic acid 400 mcg-calcium 500 mg-minerals tablet 1 ea PO DAILY supplement 03/26/17 [History Last Taken 07/14/23] omeprazole 40 mg capsule,delayed release 40 mg PO DAILY GERD 12/15/18 [History Last Taken 07/14/23] loratadine 10 mg tablet 10 mg PO DAILY PRN Allergies 03/01/20 [History Last Taken 07/14/23] apixaban 5 mg tablet 5 mg PO BID blood thinner 08/20/20 [History Last Taken 07/14/23] diltiazem HCl 120 mg capsule,extended release 24 hr 120 mg PO DAILY heart rate 08/20/20 [History Last Taken 07/14/23] lisinopril 10 mg tablet 10 mg PO DAILY blood pressure 03/26/21 [History Last Taken 07/14/23] metformin 500 mg tablet,extended release 24 hr 2,000 mg PO DAILY diabetes 03/26/21 [History Last Taken 07/14/23] metoprolol succinate 25 mg tablet,extended release 24 hr 25 mg PO DAILY blood pressure 03/26/21 [History Last Taken 07/14/23] atorvastatin 80 mg tablet 80 mg PO QHS cholesterol 02/07/22 [History Last Taken 07/14/23] furosemide 40 mg tablet 80 mg PO BID diuretic 09/22/22 [History Last Taken 07/14/23] insulin lispro 100 unit/mL subcutaneous pen (Humalog KwikPen (U-100) Insulin) 50unit (0.5 mL) subcut TIDAC #0 mL 09/24/22 [Rx Last Taken 07/13/23] albuterol sulfate 2.5 mg/3 mL (0.083 %) solution for nebulization 2.5 mg inhalation Q4H PRN SOB 12/09/22 [History Last Taken 07/10/23] empagliflozin 10 mg tablet (Jardiance) 10 mg PO DAILY DM 12/09/22 [History Last Taken 04/23/23] fenofibrate nanocrystallized 145 mg tablet 145 mg PO DAILY CHOLESTEROL 12/09/22 [History Last Taken 07/14/23] furosemide 20 mg tablet 20 mg PO PRN PRN Edema 12/09/22 [History Last Taken Unknown] citalopram 20 mg tablet 20 mg PO DAILY mental health 07/14/23 [History Last Taken 07/14/23] insulin glargine U-300 conc 300 unit/mL (3 mL) subcutaneous pen (Toujeo Max U- 300 SoloStar) 104 unit subcut BID diabetes 07/14/23 [History Last Taken 07/13/23] lorazepam 0.5 mg tablet 0.5 mg PO Q12H PRN anxiety 07/14/23 [History Last Taken 07/13/23] nicotine 21 mg/24 hr daily transdermal patch 1 patch topical Q24H quit smoking 07/14/23 [History Last Taken 07/13/23] semaglutide 1 mg/dose (4 mg/3 mL) subcutaneous pen injector (Ozempic) 1 mg subcut .1XW diabetes 07/14/23 [History Last Taken 07/13/23] metolazone 2.5 mg tablet 2.5 mg PO .every /th #8 tabs 07/15/23 [Rx Last Taken Unknown] potassium chloride 20 mEq tablet,extended release(part/cryst) See Rx Instructions .Route .COMPLEX #60 TABLETS 08/14/23 [Rx Last Taken Unknown] amoxicillin 875 mg-potassium clavulanate 125 mg tablet 1 tab PO BID 10 days #20 tabs 01/15/24 [Rx Last Taken Unknown] oxycodone-acetaminophen 5 mg-325 mg tablet (Percocet) 1 tab PO Q6H PRN pain 3 days #12 tabs 01/15/24 [Rx Last Taken Unknown] Allergy/AdvReac Type Severity Reaction Status Date / Time cyclobenzaprine HCl Allergy Hives Verified 01/14/24 22:30 [From Flexeril] venlafaxine [From Effexor] AdvReac Severe hives Verified 01/14/24 22:30 Family History Father CVA (cerebral vascular accident) Heart disease Diabetes Mother Thyroid disorder Surgical History H/O arthroscopic knee surgery History of delivery History of cholecystectomy Social History household members: none Smoking Status: Former smoker how long ago did patient quit smokin PPD smoker second hand exposure: Yes alcohol intake: never substance use type: does not use caffeine: Yes Type: carbonated beverages Number of servings: 1 and coffee Number of servings: 1 ROS ROS ED Constitutional Constitutional ED: Denies chills or fever(s) ENT ENT ED: Denies sore throat Cardiovascular Cardiovascular: Denies chest pain Respiratory/Chest Respiratory/Chest: Reports dyspnea; Denies cough Gastrointestinal Gastrointestinal: Denies abdominal pain, diarrhea, nausea or vomiting Genitourinary Genitourinary ED: Denies dysuria Musculoskeletal Musculoskeletal: Reports other Details: Positive bilateral lower leg pain Integumentary Reports other Details: Positive redness bilateral lower legs Neurologic Neurologic: Denies headache(s) Hematologic/Lymphatic Hematologic/Lymphatic: Reports easy bleeding and easy bruising EXAM Physical Exam Const Vital Signs: 01/14/24 22:27 Temperature 97.4 F L Temperature Source Temporal Pulse Rate 92 Respiratory Rate 20 H Blood Pressure 107/44 L Blood Pressure Mean 65 Pulse Ox 91 Oxygen Delivery Method Nasal Cannula Oxygen Flow Rate (L/min) 5 Positive well nourished, well developed and obese General Appearance ED: well developed Nutritional Appearance: obese HEENT HEENT Narrative: No tongue or lip swelling no oral lesions no airway edema or compromise Eyes PERRL and EOMs intact bilaterally General Eye ED: Negative for scleral icterus Neck supple and no JVD Resp normal respiratory effort and clear to auscultation bilaterally Resp Narrative: Breath sounds are slight diminished throughout but overall clear to auscultationwithout nasal flaring retractions tachypnea or accessory muscle use No crackles noted Cardio regular rate and regular rhythm Rate: other Other Details: Heart is regular rate and rhythm without murmurs rubsor gallops Radial and carotid pulses are equal and symmetric GI normal to inspection, nondistended, normoactive bowel sounds, non-tender, non-distended and no masses GI Narrative: No pulsatile mass or fluid wave noted Auscultation: normoactive bowel sounds Palpation: soft Extremity Extremity Narrative: Bilateral lower extremities are neurovascularly intact Patient has +2 pitting edema to the bilateral lower extremities that is equal and symmetric Negative Homans' sign bilaterally Patient has multiple healing blisters to the lower legs consistent with either venous insufficiency or secondary to peripheral edema. However there is increased redness and warmth around the blister sites concerning for developing infection. No obvious abscess formation. No lymphangitic streaking. Neuro oriented x3 and CN's II-XII intact bilaterally Sensorium / Orientation: alert Psych mental status grossly normal Skin Skin Narrative: Changes to the bilateral lower legs as documented above MDM MDM MDM Narrative Medical decision making narrative: Patient presented to the ER with stable vitals but reported increased shortness of breath and leg swelling and with her past medical history there is concern for congestive heart failure exacerbation/pleural effusions versus cellulitis versus DKA versus sepsis. Patient's vitals are stable and her white count is elevated at 13 but otherwise she does not have findings to suggest sepsis/systemic infection. Her proBNP is normal at 4 and her chest x-ray does not reveal any sign of fluid overload. There is also concern for DVT as a causeof her leg pain and swelling but the patient is currently on Eliquis and states has been taking the medication as directed and therefore have low concern for this and do not feel there is a need for a venous duplex at this time. Patient was started on Zosyn in the ER and will be placed on Augmentin for home secondary to the cellulitis. She is currently on 80 mg of oral Lasix daily and asked her proBNP is normal and her chest x-ray does not show signs of fluid overload I do not feel there is a need for IV Lasix at this time. Therefore as patient is not in acute respiratory failure does not have workup findings to suggest sepsis and does not have any clinically significant electrolyte derangement I do not feel there is need for admission and she be discharged homewith symptomatic care. History & Record Review Discussion w/independent historian: Patient Lab Data Attestation: I reviewed the patient's lab results. Labs: Laboratory Results - last 24 hr 01/14/24 22:52 WBC 13.2 H RBC 4.09 L Hgb 11.2 L Hct 36.5 L MCV 89.2 MCH 27.4 MCHC 30.7 L RDW Std Deviation 47.5 H RDW Coeff of Darrion 14.7 H Plt Count 317 MPV 10.3 Immature Gran % (Auto) 0.900 Neut % (Auto) 68.8 Lymph % (Auto) 23.8 [place] % (Auto) 3.6 Eos % (Auto) 2.1 Baso % (Auto) 0.8 Absolute Neuts (auto) 9.1 H Absolute Lymphs (auto) 3.13 Nucleated RBC % 0 Sodium 140 Potassium 3.7 Chloride 100 Carbon Dioxide 33.0 H Anion Gap 7 BUN 26 H Creatinine 1.14 H Estim Creat Clear Calc 96.92 Est GFR (MDRD) Af Amer 66 Est GFR (MDRD) Non-Af 54 L BUN/Creatinine Ratio 22.8 H Glucose 232 H Calcium 8.8 B-Natriuretic Peptide 3.8 Radiography Diagnostic Testing: Clinical Impression(s) from Imaging Studies Chest X-Ray 01/14/24 23:13 IMPRESSION: No evidence of active intrathoracic disease. Electronically Signed: Laurel Ni MD at 23:51 EST Reading Location ID and State: [address] [place] [address] Tel , Service support , Chest x-ray as interpreted by the emergency medicine physician reveals no acute infiltrate pneumothorax or pleural effusion Discharge Plan Triage Chief Complaint: Cellulitis ED Provider: Eulogio Jiang Dx/Rx/DC Orders Clinical Impression: Cellulitis of leg, Chronic diastolic (congestive) heart failure, Diabetes, Morbid obesity Instructions: Coping with Heart Failure, Cellulitis Dc Prescriptions: New amoxicillin-pot clavulanate 875-125 mg tablet 1 tab PO BID 10 Days Qty: 20 0RF oxycodone-acetaminophen [Percocet] 5-325 mg tablet 1 tab PO Q6H PRN (Reason: pain) 3 Days Qty: 12 0RF No Action loratadine 10 mg tablet 10 mg PO DAILY PRN (Reason: Allergies) lisinopril 10 mg tablet 10 mg PO DAILY Patient Comments: TAKE 1 TABLET BY MOUTH EVERY DAY metformin 500 mg tablet extended release 24 hr 2,000 mg PO DAILY metoprolol succinate 25 mg tablet extended release 24 hr 25 mg PO DAILY Patient Comments: TAKE 1 TABLET BY MOUTH EVERY DAY atorvastatin 80 mg tablet 80 mg PO QHS vrgrxaob-uvjy-LG-calcium-mins 1 EACH tablet 1 ea PO DAILY Patient Comments: vitamin omeprazole 40 MG capsule,delayed release(DR/EC) 40 mg PO DAILY diltiazem HCl 120 MG capsule 120 mg PO DAILY apixaban 5 MG tablet 5 mg PO BID furosemide 40 mg tablet 80 mg PO BID insulin lispro [Humalog KwikPen Insulin] 100 unit/mL Insulin Pen 50 unit subcut TIDAC Qty: 0 0RF albuterol sulfate 2.5 mg /3 mL (0.083 %) solution for nebulization 2.5 mg inhalation Q4H PRN (Reason: SOB) furosemide 20 mg tablet 20 mg PO PRN PRN (Reason: Edema) fenofibrate nanocrystallized 145 mg tablet 145 mg PO DAILY Jardiance 10 mg tablet 10 mg PO DAILY citalopram 20 mg tablet 20 mg PO DAILY Toujeo Max U-300 SoloStar 300 unit/mL (3 mL) insulin pen 104 unit SUBCUT BID lorazepam 0.5 mg tablet 0.5 mg PO Q12H PRN (Reason: anxiety) Patient Comments: Take one (1) tablet by mouth every 12 hours, as needed for anxiety. PALLIATIVE PATIENT nicotine 21 mg/24 hr patch 24 hour 1 patch topical Q24H Ozempic 1 mg/dose (4 mg/3 mL) pen injector 1 mg SUBCUT .1XW metolazone 2.5 mg tablet 2.5 mg PO .every / Qty: 8 1RF potassium chloride 20 mEq tablet,ER particles/crystals See Rx Instructions .ROUTE .COMPLEX Qty: 60 11RF Dose Instruction: TAKE 1 TABLET BY MOUTH TWICE A DAY Rx Instructions: TAKE 1 TABLET BY MOUTH TWICE A DAY Primary Care Provider: Delmy Solorzano Referrals: Delmy Solorzano MD [Primary Care Provider] - Activity Restrictions/Additional Instructions: Please contact your family doctor to check if they want you to increase your Lasix for the next few days based on your increased swelling. However your marker for heart failure is normal and your chest x-ray shows no signs of retained fluid. You will be placed on antibiotics for the infection in your legs and if you develop a fever or have any further concerns please return for repeat evaluation. Disposition Disposition: Home, Self Care What to do if you have Problems For any increased pain, shortness of breath, bleeding, nausea or vomiting, chestpain, or any unexpected problems, contact your Primary Care Provider. Call [facility] ([phone]) or report to the closest Emergency Room. Call 911 if necessary. 01/15/24 0023 <Electronically signed by Eulogio Jiang DO> Cosigner Signature (if applicable): CC: Dr. Delmy Solorzano MD ~ Signed [facility] Work Phone: Evaluation note* Diagnosis Chronic diastolic heart failure (HCC) Chronic diastolic heart failure documented in this encounter [facility] note* Diagnosis Onset Date Resolution Status Pneumonia acute Right leg pain acute Acute hyponatremia resolved Acute on chronic respiratory failure with hypoxia and hypercapnia resolved KERRY (acute kidney injury) re solved CHI (closed head injury) res olved Congestive heart failure acu te Acute and chronic respiratory failure with hypoxia chronic Chronic diastolic (congestive) heart failure chronic Morbid obesity chronic 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 cheryl fernandez [facility] Work Phone: Evaluation note* Diagnosis Type 2 diabetes mellitus with diabetic polyneuropathy, with long-term current use of insulin ([facility])- Primary Dysuria LOGAN (obstructive sleep apnea) 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 (adult) (pediatric) Essential hypertension Unspecified essential hypertension Chronic respiratory failure with hypoxia (HCC) Chronic respiratory failure Hyperlipidemia, unspecified hyperlipidemia type documented in this encounter [facility] note* Diagnosis Chronic diastolic heart failure (HCC)- Primary Chronic diastolic heart failure documented in this encounter [facility] note* Diagnosis Vaginal rasta Candidiasis of vulva and vagina Type 2 diabetes mellitus with diabetic polyneuropathy, with long-term current use of insulin ([facility]) documented in this encounter [facility] note* Diagnosis Type 2 diabetes mellitus with diabetic polyneuropathy, with long-term current use of insulin ([facility])- Primary documented in this encounter [facility] note* Diagnosis Type 2 diabetes mellitus with diabetic polyneuropathy, with long-term current use of insulin (HCC) documented in this encounter [facility] note* Diagnosis Type 2 diabetes mellitus with diabetic polyneuropathy, with long-term current use of insulin (HCC) documented in this encounter [facility] note* Diagnosis Type 2 diabetes mellitus with diabetic polyneuropathy, with long-term current use of insulin (HCC)- Primary documented in this encounter [facility] note* Diagnosis Encounter for screening mammogram for breast cancer documented in this encounter [facility] note* Diagnosis Chronic diastolic heart failure (HCC) Chronic diastolic heart failure Type 2 diabetes mellitus with diabetic polyneuropathy, with long-term current use of insulin (HCC) documented in this encounter [facility] note* Diagnosis Type 2 diabetes mellitus with diabetic polyneuropathy, with long-term current use of insulin (HCC) Acute pulmonary embolism without acute cor pulmonale, unspecified pulmonary embolism type (HCC) Bacterial pneumonia Bacterial pneumonia, unspecified Hyperlipidemia, unspecified hyperlipidemia type Ischemia of heart, chronic Chronic ischemic heart disease, unspecified GERD without esophagitis Esophageal reflux Chronic diastolic heart failure (HCC) Chronic diastolic heart failure Essential hypertension Unspecified essential hypertension Tachycardia Tachycardia, unspecified documented in this encounter [facility] note* Diagnosis Screening for colon cancer- Primary Special screening for malignant neoplasms, colon Chest pain, unspecified type Morbid obesity (HCC) Morbid obesity documented in this encounter [facility] note* Diagnosis Type 2 diabetes mellitus with diabetic polyneuropathy, with long-term current use of insulin (HCC)- Primary documented in this encounter [facility] note* Diagnosis Chronic diastolic heart failure (HCC) Chronic diastolic heart failure Type 2 diabetes mellitus with diabetic polyneuropathy, with long-term current use of insulin (HCC) documented in this encounter [facility] noteNo assessment information availableWKettering [facility] Work Phone: Evaluation note* Diagnosis Onset Date Resolution Status Acute on chronic heart failu re with normal ejection fraction acute Acute and chronic respiratory failure with hypoxia [facility] Work Phone: Evaluation note* Diagnosis Type 2 diabetes mellitus with diabetic polyneuropathy, with long-term current use of insulin (HCC) [facility] Acute diastolic CHF (congestive heart failure) ([facility])- Primary Acute diastolic heart failure COPD with exacerbation (HCC) Obstructive chronic bronchitis with exacerbation Bacterial pneumonia Bacterial pneumonia, unspecified Hypoxia Hypoxemia LOGAN treated with BiPAP Bilateral lower extremity edema Edema Type 2 diabetes mellitus with diabetic polyneuropathy, with long-term current use of insulin ([facility]) Other chest pain Tremor Abnormal involuntary movements Tobacco use Tobacco use disorder [facility] Diagnosis Type 2 diabetes mellitus with diabetic polyneuropathy, with long-term current use of insulin ([facility])- Primary History of tobacco use Personal history of tobacco use, presenting hazards to health [facility] Diagnosis Onychomycosis- Primary Dermatophytosis of nail Pain in toe of left foot Pain in limb Pain in toe of right foot Pain in limb Other diabetic neurological complication associated with type 2 diabetes mellitus ([facility]) Hyperkeratosis Acquired keratoderma Chronic venous insufficiency Unspecified venous (peripheral) insufficiency Diminished pulses in lower extremity Other symptoms involving cardiovascular system [facility] Diagnosis Strep pharyngitis- Primary Streptococcal sore throat Reactive airway disease with acute exacerbation, unspecified asthma severity, unspecified whether persistent Tremor Abnormal involuntary movements LOGAN treated with BiPAP Morbid obesity ([facility]) Morbid obesity Type 2 diabetes mellitus with diabetic polyneuropathy, with long-term current use of insulin ([facility]) Episodic lightheadedness Dizziness and giddiness Dehydration [facility] Diagnosis KERRY (acute kidney injury) ([facility])- Primary Acute kidney failure, unspecified [facility]* Diagnosis Acute diastolic CHF (congestive heart failure) ([facility]) Acute diastolic heart failure Bilateral lower extremity edema Edema [facility] Diagnosis Onset Date Resolution Status Acute on chronic heart failu re with normal ejection fraction acute Acute and chronic respiratory failure with hypoxia chronic KERRY (acute kidney injury) ac yaa Metabolic encephalopathy acu te Unable to ambulate acute Essential hypertension chron ic Type 2 diabetes mellitus [facility] Work Phone: Evaluation note* Diagnosis Type 2 diabetes mellitus with diabetic polyneuropathy, with long-term current use of insulin ([facility]) [facility]* Diagnosis Type 2 diabetes mellitus with diabetic polyneuropathy, with long-term current use of insulin (HCC) Ischemia of heart, chronic Chronic ischemic heart disease, unspecified Tachycardia Tachycardia, unspecified Acute pulmonary embolism without acute cor pulmonale, unspecified pulmonary embolism type (HCC) Essential hypertension Unspecified essential hypertension Hyperlipidemia, unspecified hyperlipidemia type [facility]* Diagnosis Necrotizing soft tissue infection documented in this encounter [facility] note* Diagnosis Onset Date Resolution Status Acute on chronic heart failu re with normal ejection fraction acute Acute and chronic respiratory failure with hypoxia chronic KERRY (acute kidney injury) re solved Metabolic encephalopathy res olved Unable to ambulate resolved [facility] Work Phone: Evaluation note* Diagnosis Open wounds involving multiple regions of lower extremity- Primary [facility]* Diagnosis Onset Date Resolution Status KERRY (acute kidney injury) re solved Metabolic encephalopathy res olved Unable to ambulate resolved [facility] Work Phone: Evaluation note* Diagnosis Abscess of groin, left- Primary Cellulitis and abscess of trunk Non-healing open wound of left groin, initial encounter Necrotizing soft tissue infection Cellulitis of skin Cellulitis and abscess of unspecified site Type 2 diabetes mellitus with diabetic polyneuropathy, with long-term current use of insulin ([facility]) [facility]* Diagnosis Onset Date Resolution Status KERRY (acute kidney injury) re solved Metabolic encephalopathy res olved Unable to ambulate resolved Acidosis, lactic acute Acute bronchospasm acute Acute encephalopathy acute BMI 60.0-69.9, adult acute Community acquired pneumonia acute Congestive heart failure acu te Noncompliance with CPAP treatment acute Perianal abscess acute Pneumonia acute Severe sepsis acute Type 2 diabetes mellitus with hyperglycemia acute Venous stasis dermatitis of both lower extremities acute Acute on chronic respiratory failure with hypercapnia chronic Acute on chronic respiratory failure with hypoxemia chronic Acute on chronic respiratory failure with hypoxia and hypercapnia chronic 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 Diagnosis Onset Date Resolution Status KERRY (acute kidney injury) re solved Metabolic encephalopathy res olved Unable to ambulate resolved Acidosis, lactic resolved Acute bronchospasm resolved Acute encephalopathy resolve d Acute on chronic respiratory failure with hypercapnia resolved Acute on chronic respiratory failure with hypoxemia resolved Acute on chronic respiratory failure with hypoxia and hypercapnia resolved Community acquired pneumonia resolved Perianal abscess resolved Pneumonia resolved Severe sepsis resolved [facility] Work Phone: Evaluation note* Diagnosis Pressure injury of other site, stage 2 (HCC)- Primary documented in this encounter [facility] note* Diagnosis Anxiety and depression Dysthymic disorder Type 2 diabetes mellitus with diabetic polyneuropathy, with long-term current use of insulin ([facility]) Essential hypertension Unspecified essential hypertension Hyperlipidemia, unspecified hyperlipidemia type [facility] Diagnosis Type 2 diabetes mellitus with diabetic polyneuropathy, with long-term current use of insulin ([facility]) [facility]* Diagnosis Encounter for screening mammogram for breast cancer documented in this encounter [facility] note* Diagnosis Type 2 diabetes mellitus with diabetic polyneuropathy, with long-term current use of insulin ([facility]) documented in this encounter [facility] note* Diagnosis Type 2 diabetes mellitus with diabetic polyneuropathy, with long-term current use of insulin ([facility]) documented in this encounter [facility] note* Diagnosis Tobacco use Tobacco use disorder documented in this encounter [facility] note* Diagnosis Onset Date Resolution Status COPD with acute exacerbation resolved Elevated lactic acid level r esolved Chest pain acute CHF (congestive heart failure) acute [facility] Work Phone: Evaluation note* Diagnosis Type 2 diabetes mellitus with diabetic polyneuropathy, with long-term current use of insulin ([facility]) [facility]* Diagnosis Onset Date Resolution Status Chest pain resolved [facility] Work Phone: Evaluation note* Diagnosis Acute diastolic CHF (congestive heart failure) (HCC) Acute diastolic heart failure Bilateral lower extremity edema Edema documented in this encounter [facility] note* Diagnosis Chronic diastolic heart failure (HCC) Chronic diastolic heart failure Decreased lung sounds Abnormal chest sounds [facility] Diagnosis Chronic respiratory failure with hypoxia (HCC) Chronic respiratory failure Acute on chronic congestive heart failure, unspecified heart failure type (HCC) documented in this encounter [facility] note* Diagnosis Onset Date Resolution Status Admit Date Cellulitis of leg acute [facility] [place] 9:09pm Elevated troponin acute [facility] [place] 9:09pm [facility] Work Phone: History and physical note Author Dr. Gill [facility] December 19, 2022 12:23am Note Date/Time December 18, 2022 1 1:45pm [facility] Medical Records Department [address] [place] [address] H&P Exam - Hospitalist 12/18/22 2345 MR#: [id number] Acct: [id number] Name: MACARIO WALLACE Rep #:[id number] : 1975 47 From: Chris Gill MD PCP: Dr. Tino Oreilly MD Status :ADM IN Location: [facility] [id number] HPI - General General Date of Admission: 12/18/22 Date of Service: 12/19/22 Chief Complaint: Somnolence HPI Narrative MACARIO WALLACE, is a 47 F with a significant history of morbid obesity; diabetes mellitus; hypertension; and tobacco abuse who presents to emergency department with somnolence. Patient's family was called because patient was in bed all day. Reportedly patient family called paramedics to check on patient. When paramedics arrived patient refused to come to the emergency department. Patient's family later went to check on her and realized that patient could not walk. Paramedics were called and patient was brought to the emergency department. Patient uses 4 to 5 L nasal cannula oxygen [id number] and CPAP at night tosleep. Reportedly patient did not use either her CPAP oxygen on the day of presentation. [facility] Medical History (Updated 12/19/22 @ 00:[address] Chris Gill MD) Abscess Abscess of vulva KERRY (acute kidney injury) Anxiety BiPAP (biphasic positive airway pressure) dependence Chronic diastolic (congestive) heart failure Chronic respiratory failure with hypoxia Contusion of knee, right COPD (chronic obstructive pulmonary disease) Depression Diabetes Dyspnea on exertion Essential hypertension GERD (gastroesophageal reflux disease) Hidradenitis History of left heart catheterization (LHC) (~01/05/19) History of MRSA infection Hyperglycemia due to type 2 diabetes mellitus Hyperlipidemia Hypertension Morbid obesity Necrotizing soft tissue infection Non-healing open wound of left groin NSTEMI (non-ST elevated myocardial infarction) 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 Old myocardial infarction On home oxygen therapy Open wound of vulva with complication Opiate overdose Pulmonary embolism Respiratory failure with hypoxia Restrictive lung disease secondary to obesity Sleep apnea Smoker Soft tissue abscess of inguinal region Tobacco abuse Type 2 diabetes mellitus Home Medications multivit-iron 18 mg-folic acid 400 mcg-calcium 500 mg-minerals tablet 1 ea PO DAILY supplement 03/26/17 [History Last Taken 12/09/22] omeprazole 40 mg capsule,delayed release 40 mg PO DAILY GERD 12/15/18 [History Last Taken 12/09/22] loratadine 10 mg tablet 10 mg PO DAILY PRN Allergies 03/01/20 [History Last Taken 12/09/22] apixaban 5 mg tablet 5 mg PO BID blood thinner 08/20/20 [History Last Taken 12/09/22] diltiazem HCl 120 mg capsule,extended release 24 hr 120 mg PO DAILY heart rate 08/20/20 [History Last Taken 12/09/22] lisinopril 10 mg tablet 10 mg PO DAILY blood pressure 03/26/21 [History Last Taken 12/09/22] metformin 500 mg tablet,extended release 24 hr 2,000 mg PO DAILY diabetes 03/26/21 [History Last Taken 01/15/22] metoprolol succinate 25 mg tablet,extended release 24 hr 25 mg PO DAILY blood pressure 03/26/21 [History Last Taken 12/09/22] dulaglutide 4.5 mg/0.5 mL subcutaneous pen injector (Trulicity) 4.5 mg subcut WEDM 01/15/22 [History Last Taken 12/05/22] atorvastatin 80 mg tablet 100 mg PO QHS 02/07/22 [History Last Taken 12/09/22] potassium chloride 20 mEq tablet,extended release 20 meq PO BID #60 tabs 07/25/22 [Rx Last Taken 12/09/22] furosemide 40 mg tablet 40 mg PO BID diuretic 09/22/22 [History Last Taken 12/09/22] ammonium lactate 12 % lotion 1 applic topical TID 30 days #400 grams 09/24/22 [Rx Last Taken 12/08/22] insulin degludec 200 unit/mL (3 mL) subcutaneous pen (Tresiba FlexTouch U-200 insulin) 95 unit (0.475 mL) subcut BID DM 30 days #28.5 mL 09/24/22 [Rx Last Taken 12/09/22] insulin lispro 100 unit/mL subcutaneous pen (Humalog KwikPen (U-100) Insulin) 50unit (0.5 mL) subcut TIDAC #0 mL 09/24/22 [Rx Last Taken 12/09/22] albuterol sulfate 2.5 mg/3 mL (0.083 %) solution for nebulization 2.5 mg inhalation Q4H PRN SOB 12/09/22 [History Last Taken 12/08/22] doxycycline monohydrate 100 mg capsule 100 mg PO BID #14 CAPSULES 12/09/22 [Rx Last Taken Unknown] empagliflozin 10 mg tablet (Jardiance) 10 mg PO DAILY DM 12/09/22 [History Last Taken 12/09/22] fenofibrate nanocrystallized 145 mg tablet 145 mg PO DAILY CHOLESTEROL 12/09/22 [History Last Taken 12/09/22] furosemide 20 mg tablet 20 mg PO DAILY diuretic 12/09/22 [History Last Taken Unknown] gabapentin 800 mg tablet 800 mg PO TID NERVE PAIN 12/09/22 [History Last Taken 12/09/22] insulin glargine U-300 conc 300 unit/mL (3 mL) subcutaneous pen (Toujeo Max U- 300 SoloStar) 150 unit subcut DAILY DM 12/09/22 [History Last Taken 12/09/22] nicotine (polacrilex) 2 mg buccal mini lozenge 2 mg PO PRN PRN Smoking Zvopsfltu64/09/23 [History Last Taken 12/08/22] prednisone 20 mg tablet 60 mg PO DAILY #12 TABLETS 12/09/22 [Rx Last Taken Unknown] Allergy/AdvReac Type Severity Reaction Status Date / Time cyclobenzaprine HCl Allergy Hives Verified 12/18/22 21:44 [From Flexeril] venlafaxine [From Effexor] AdvReac Severe unknown Verified 12/18/22 21:44 Family History Father CVA (cerebral vascular accident) Heart disease Diabetes Mother Thyroid disorder Surgical History H/O arthroscopic knee surgery History of delivery History of cholecystectomy Social History household members: none Smoking Status: Current some day smoker tobacco type: cigarettes how long ago did patient quit smokin PPD smoker second hand exposure: Yes alcohol intake: never substance use type: does not use caffeine: Yes Type: carbonated beverages Number of servings: 1 and coffee Number of servings: 1 ROS ROS Narrative Pertinent positives and pertinent negatives as noted in HPI. All other systems were reviewed and are negative Vital Signs Vital Signs Vital Signs: 12/18/22 21:35 Temperature 97.9 F Temperature Source Temporal Pulse Rate 100 Respiratory Rate 16 Blood Pressure 159/120 H Blood Pressure Mean 133 Pulse Ox 93 Oxygen Delivery Method Nasal Cannula Oxygen Flow Rate (L/min) 3 Weight Weight: 179.4 kg Body Mass Index (BMI) 61.9 Physical Exam Narrative Physical exam: General: Morbidly obese Head: Normocephalic, atraumatic, no tenderness Eyes: Vision is grossly intact. EOMI ENT, no trauma, dry mucous membranes, no rhinorrhea Neck: Nontender, No thyromegaly. CVS: Regular rate and rhythm. S1-S2 present. No murmur, gallop or rub. Respiratory : Diminished, chest wall nontender, no wheezing Abdomen: Soft, nontender, nondistended, normal bowel sounds, no masses : Deferred Back: Nontender, no CVA tenderness, no midline spinal tenderness, Extremities: Nontender full range of motion, no trauma Skin: Normal color, no trauma, abrasions Neuro: Alert, oriented, cranial nerves II through XII grossly intact. Psychiatry: Normal mood. Normal affect. Not depressed. Not anxious. Results Lab / Micro Data Result Diagrams: 12/18/22 22:23 12/18/22 22:23 Labs: Laboratory Results - last 24 hr 12/18/22 22:23: WBC 18.3 H, RBC 4.04 L, Hgb 11.5 L, Hct 37.4, MCV 92.6, MCH 28.5, MCHC 30.7 L, RDW Std Deviation 57.5 H, RDW Coeff of Darrion 16.8 H, Plt Count 251, MPV 10.0, Immature Gran % (Auto) 0.800, Neut % (Auto) 84.5 H, Lymph % (Auto) 8.9 L, Defiance % (Auto) 5.2, Eos % (Auto) 0.3, Baso % (Auto) 0.3, Absolute Neuts (auto) 15.5 H, Absolute Lymphs (auto) 1.63, Nucleated RBC % 0 12/18/22 22:23: Sodium 130 L, Potassium 5.6 H, Chloride 98, Carbon Dioxide 27.0,Anion Gap 5, BUN 80 H, Creatinine 2.37 H, Estim Creat Clear Calc 29.15, Est GFR (MDRD) Af Amer 28 L, Est GFR (MDRD) Non-Af 24 L, BUN/Creatinine Ratio 33.8 H, Glucose 171 H, Calcium 8.6, Troponin I High Sens 22 12/18/22 22:30: Urine Color Yellow, Urine Clarity Clear, Urine pH 6.0, Ur Specific Renick 1.010, Urine Protein Negative, Urine Glucose (UA) 250 H, Urine Ketones Negative, Urine Occult Blood Negative, Urine Nitrite Negative, Urine Bilirubin Negative, Urine Urobilinogen Normal, Ur Leukocyte Esterase Negative, Urine RBC 0 SEEN, Urine WBC 0 SEEN, Ur Squamous Epith Cells 0 SEEN, Urine Bacteria 1+, Urine Mucus 0 SEEN, Urine Yeast RARE ABG Data ABG results: ABG 12/18/22 22:43 Specimen Type ART Sample Site R Brach pH 7.30 L Bicarbonate Actual 26.7 H Total CO2 28 Base Excess 0 O2 Saturation 89 L ABG pCO2 53.7 H ABG pO2 63 L Anil Test Positive O2 Delivery Device Cannula Liter Flow 3.0 Radiology Impression Chest X-Ray 12/18/22 22:40 IMPRESSION: No radiographic evidence of acute cardiopulmonary disease. Electronically Signed: Leonides Lakhani MD at 22:59 EST , Assessment & Plan Assessment/Plan (1) Unable to ambulate: (2) KERRY (acute kidney injury): (3) Metabolic encephalopathy: (4) Type 2 diabetes mellitus: QUALIFIERS: Diabetes mellitus complication detail: with coma Diabetes mellitus complication status: with hyperosmolarity Diabetes mellitus residential insulin use: with residential use Qualified Code(s): E11.01 - Type 2 diabetes mellitus with hyperosmolarity with coma; Z79.4 - nursing home (current) use of insulin (5) Essential hypertension: PLAN: Plan KERRY on chronic kidney disease stage IIIA CKD Likely from Diabetic nephropathy Baseline creatinine of ~1.3. Creatinine on admission was 2.37. BUN is 80. BUN over creatinine is 33.8. Likely secondary to dehydration. IV hydration ordered. Trend BMP. Avoid nephrotoxic's. Acute metabolic encephalopathy Likely secondary to uremia. IV fluid as above. Trend BMP. Hyponatremia Sodium of 130. Likely secondary to hypovolemia. IV fluid as above. Trend. Hyperkalemia Potassium on presentation was 5.6. Likely secondary to dehydration. IV hydration as above. Trend BMP. Diabetes mellitus with hyperglycemia Patient with mild hyperglycemia on presentation. Accu-Chek with correction scale insulin ordered. Debility/inability to ambulate PT notes work with patient. Case management consult. Morbid Obesity: BMI: 61kg/m?. Complicates care. Lifestyle modification recommended. Hypertension Erratic Trend blood pressures DVT prophylaxis Subcutaneous Lovenox ordered. Charges/Coding Visit Charges Inpatient E&M: 41159 Init Hosp L3 12/19/22 0023 <Electronically signed by Chris Gill MD> Cosigner Signature (if applicable): CC: Dr. Tino Oreilly MD; Dr. Chris Gill MD~ Signed [facility] Work Phone: History and physical note Author Olamide Mas [facility] Note Date/Time August 16, 2025 9:32pm [facility] Medical Records Department [address] [place] [address] H&P Exam - Hospitalist 08/16/256 MR#: [id number] Acct: [id number] Name: MACARIO WALLACE Rep #:[id number] : 1975 50 From: Olamide Mas MD PCP: Dr. Delmy Solorzano MD Status:ADM IN Location: [place] [id number] HPI - General General Date of Admission: 08/16/25 Date of Service: 08/16/25 Chief Complaint: Worsening LE edema, orthopnea, dyspnea, RLE stasis blisters with drainage. 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, uncertain, HFpEF, COPD w/ Chronic Hypoxic and Hypercapnic Respiratory Failure (4L NC), LOGAN on BIPAP, HTN, HLD, GERD, Anxiety and Depression, Former Tobacco use, Diabetes mellitus type II withchronic neuropathy, Hx VTE who presents to the [facility] ED on 08/16/2025 with history of increasing edema to the lower extremity, dyspnea worsewith exertion with drainage to the right lower extremity and redness with subjective fever and chills noting that the edema to the right has been greater with notable orthopnea concurrently with some admission that she has not been compliant intermittently with her PAP therapy prompting eventual ED evaluation. Workup in the ED included T98.1, heart rate 99, BP 156/71, respiratory rate 20, 96% on 5 L nasal cannula with patient most recently noted to be on 4 L nasal cannula 10/2024 with most recent repeat vitals T98.9 Oral, heart rate 91, BP 134/69, respiratory rate 14, 99% on 5 L nasal cannula, CBC with WC 9.4, hemoglobin 9.2, MCV 90.8, platelet 254 without marked shift, unremarkable coags,CMP with chloride 90, BUN/creatinine 32/1.07, GFR 64, glucose 525, lactic acid 1.9, anion gap 14, hepatic profile unremarkable, initial troponin 37, NT proBNP II 163, chest x-ray with cardiomegaly with vascular congestion, EKG with sinus rhythm with no acute evidence of ischemia, blood culture x 2 pending per ED. Inthe ED patient ministered Unasyn 3 g IV x 1, insulin U-500 15 units subcu x 1, vancomycin 2000 mg IV x 1, oxycodone 10 mg p.o. x 1. From review of records 11/12/2024 last weight of patient 387 pounds now upon current presentation up to408 pounds. [facility] Medical History (Updated 08/16/25 @ 21:[address] Olamide Mas MD) Cellulitis of leg MRSA cellulitis of left foot Arthritis Non-smoker CHF (congestive heart failure) History of diabetes mellitus Anemia Hypoxia Morbid obesity Venous stasis dermatitis of both lower extremities BMI 60.0-69.9, adult Noncompliance with CPAP treatment Acute on chronic respiratory failure with hypoxia and hypercapnia Perianal abscess Type 2 diabetes mellitus with hyperglycemia Contusion of knee, right Chronic diastolic (congestive) heart failure Depression Diabetes GERD (gastroesophageal reflux disease) BiPAP (biphasic positive airway pressure) dependence Sleep apnea On home oxygen therapy Smoker COPD (chronic obstructive pulmonary disease) Hypertension Congestive heart failure KERRY (acute kidney injury) Chronic respiratory failure with hypoxia Opiate overdose History of left heart catheterization (LHC) (~01/05/19) Type 2 diabetes mellitus Old myocardial infarction Essential hypertension Restrictive lung disease secondary to obesity Dyspnea on exertion Pulmonary embolism Hidradenitis Non-healing open wound of left groin Open wound of vulva with complication Necrotizing soft tissue infection Abscess of vulva Soft tissue abscess of inguinal region Respiratory failure with hypoxia Abscess Hyperglycemia due to type 2 diabetes mellitus NSTEMI (non-ST elevated myocardial infarction) Tobacco abuse Hyperlipidemia Morbid obesity History of MRSA infection Anxiety 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 Home Medications ?Medication ?Instructions ?Recorded ?Last Taken ?Type multivit-iron 18 mg-folic acid 400 1 ea PO DAILY suppl ement 03/26/17 07/14/23 History mcg-calcium 500 mg-minerals tablet omeprazole 40 mg capsule,delayed 40 mg PO DAILY GERD 0 12/15/18 07/14/23 History release loratadine 10 mg tablet 10 mg PO DAILY PRN Allergies 03/01/20 07/14/23 History apixaban 5 mg tablet 5 mg PO BID blood thinner 07/14/23 History diltiazem HCl 120 mg 120 mg PO DAILY heart rate 0 08/20/20 07/14/23 History capsule,extended release 24 hr lisinopril 10 mg tablet 10 mg PO DAILY blood pressur e 03/26/21 07/14/23 History metformin 500 mg tablet,extended 1,000 mg PO DAILY richard betes 03/26/21 07/14/23 History release 24 hr metoprolol succinate 25 mg 25 mg PO DAILY blood pressu re 03/26/21 07/14/23 History tablet,extended release 24 hr atorvastatin 80 mg tablet 80 mg PO QHS cholesterol 09/2107/14/23 History furosemide 40 mg tablet 80 mg PO DAILY diuretic 09/0107/14/23 History albuterol sulfate 2.5 mg/3 mL 2.5 mg inhalation Q4H GA N SOB 12/09/22 07/10/23 History (0.083 %) solution for nebulization fenofibrate nanocrystallized 145 145 mg PO DAILY MACIEL STEROL 12/09/22 07/14/23 History mg tablet insulin glargine U-300 conc 300 104 unit subcut BID di abetes 07/14/23 07/13/23 History unit/mL (3 mL) subcutaneous pen (Toujeo Max U-300 SoloStar) semaglutide 1 mg/dose (4 mg/3 mL) 1 mg subcut .1XW richard betes 07/14/23 07/13/23 History subcutaneous pen injector (Ozempic) metolazone 2.5 mg tablet 2.5 mg PO .every /th #8 tabs 07/15/23 Unknown Rx oxycodone-acetaminophen 5 mg-325 1 tab PO Q6H PRN pain 3 days #12 01/15/24 Unknown Rx mg tablet (Percocet) tabs potassium chloride 20 mEq See Rx Instructions .Route 0 08/05/24 Unknown Rx tablet,extended release(part/cryst) .COMPLEX #60 TABLE TS duloxetine 60 mg capsule,delayed 60 mg PO DAILY Unknown History release ergocalciferol (vitamin D2) 1,250 1,250 mcg PO QWEEK 1 01/10/24 Unknown History mcg (50,000 unit) capsule (Vitamin D2) ferrous sulfate 325 mg (65 mg 325 mg PO DAILY 11/09/24 Unknown History iron) tablet (FeroSul) lorazepam 1 mg tablet 1 mg PO TID 11/09/24 Unknown History cephalexin 500 mg capsule 500 mg PO TID #14 caps 11/12 Unknown Rx doxycycline monohydrate 100 mg 100 mg PO BID 5 days #1 0 caps 11/12/24 Unknown Rx capsule methocarbamol 750 mg tablet 1,500 mg PO TID muscle spa sm 08/16/25 Unknown History oxycodone 15 mg tablet 15 mg PO Q6H PRN PRN pain Unknown History pregabalin 150 mg capsule 150 mg PO TID 08/16/25 Unkno wn History semaglutide 2 mg/dose (8 mg/3 mL) mg subcut 08/16/25 U nknown History subcutaneous pen injector (Ozempic) Allergy/AdvReac Type Severity Reaction Status Date / Time cyclobenzaprine HCl (From Allergy Hives Verified 08/16/25 18:21 Flexeril) venlafaxine (From Effexor) AdvReac Severe hives Verified 08/16/25 18:21 Family History Father CVA (cerebral vascular accident) Heart disease Diabetes Mother Thyroid disorder Surgical History History of delivery H/O arthroscopic knee surgery History of cholecystectomy Social History (Updated 08/16/25 @ 21:[address] Olamide Mas MD) household members: none Smoking Status: Former smoker how long ago did patient quit smokin PPD smoker, quit x 1 year approximately. second hand exposure: Yes alcohol intake: never substance use type: does not use caffeine: Yes Type: carbonated beverages Number of servings: 1 and coffee Number of servings: 1 ROS ROS Narrative Admission Review of Systems: CONSTITUTIONAL: No weight loss, + subjective fever, chills, weakness or fatigue. HEENT: Eyes: No visual loss, blurred vision, double vision or yellow sclerae. Ears, Nose, Throat: No hearing loss, sneezing, congestion, runny nose or sore throat. SKIN: No rash or itching, lesions except + significant bilateral lower extremityvenous stasis skin changes, stasis blister wounds/seepage RLE. CARDIOVASCULAR: + Increased lower extremity swelling, edema, worsened orthopnea,weight gain. No chest pain, chest pressure or chest discomfort, palpitations, syncopal events. RESPIRATORY: + Dyspnea, worse with exertion. No marked cough, productive sputum or wheezing. No hemoptysis. GASTROINTESTINAL: No anorexia, nausea, vomiting or diarrhea, abdominal pain, melena, BRBPR. GENITOURINARY: No dysuria, frequency, urgency or retention. NEUROLOGICAL: No headache, dizziness, syncope, paralysis, ataxia, numbness or tingling in the extremities, focal weakness, change in bowel or bladder control,seizure. MUSCULOSKELETAL: + muscle, back pain, joint pain or stiffness. HEMATOLOGIC: + Chronic anemia, easy bleeding/bruising. PSYCHIATRIC: + History of anxiety and depression. ENDOCRINOLOGIC: No reports of sweating. + Reported recent cold or heat intolerance. No polyuria or polydipsia. ALLERGIES: + History of hives, allergic rhinitis. Vital Signs Vital Signs Vital Signs: 08/16/25 18:21 08/16/25 19:24 08/16/25 20:00 Temperature 98.1 F 98.6 F 98.9 F Temperature Source Temporal Oral Oral Pulse Rate 99 90 91 Respiratory Rate 20 H 17 14 Blood Pressure 156/71 H 122/59 H 144/69 H Blood Pressure Mean 99 80 94 Pulse Ox 96 96 99 Oxygen Delivery Method Nasal Cannula Room Air Nasal Cannula Oxygen Flow Rate (L/min) 5 5 Weight Weight: 408 lb 15.32 oz Body Mass Index (BMI) 67.3 Physical Exam Narrative Physical Examination: General: Awake, alert, oriented x 3, fatigued appearing, uncomfortable appearing, cooperative, seated upright in the ED bed. Skin: Normal color, normal turgor, no icterus, no cyanosis except for significant bilateral lower extremity venous stasis skin changes, chronic significant edema pedal to proximal stratton, erythematous lichenified skin noted, bilateral venous stasis blisters with wounds with seepage, R> L with odor associated and increased erythema to the focused RLE. HEENT: AT/NC, EOMI, PERRLA, MMM, no carotid bruits, unable to discern JVD given thickened neck. Lungs: Significantly diminished, greater bases, mildly increased respiratory rate but no distress, no appreciated rales, rhonchi or wheezing. Heart: Regular rate with regular rhythm; no gallop, rub audible. Abdomen: Soft, morbidly obese, NTTP, distant BS, difficult to discern distentionand HSM given habitus. Extremities: No cyanosis, no clubbing, see skin. Neurological: Awake, alert, oriented as noted, cognitive function intact, pupilsequally reactive to light and accommodation, cranial nerves grossly normal, moving all 4 extremities, no focal deficits, strength severely globally decreased secondary to acute presentation complaints, habitus underlying comorbidities. Psychiatric: Affect appears fatigued, uncomfortable noting discomfort to bilateral lower extremities, no acute evidence of depressive or anxiety feelingsbut does have underlying history. Results Lab / Micro Data 08/16/25 19:30 08/16/25 19:30 Labs: Laboratory Results - last 24 hr 08/16/25 19:30: WBC 9.4, RBC 3.26 L, Hgb 9.2 L, Hct 29.6 L, MCV 90.8, MCH 28.2, MCHC 31.1 L, RDW Std Deviation 45.8 H, RDW Coeff of Darrion 13.7, Plt Count 254, MPV10.5, Immature Gran % (Auto) 0.600, Neut % (Auto) 72.2 H, Lymph % (Auto) 20.4, Defiance % (Auto) 4.1, Eos % (Auto) 2.0, Baso % (Auto) 0.7, Absolute Neuts (auto) 6.8, Absolute Lymphs (auto) 1.92, Nucleated RBC % 0, PT 14.3, INR 1.1, APTT 29.8, Sodium 134, Potassium 3.8, Chloride 90 L, Carbon Dioxide 30.0, Anion Gap 14, BUN 32 H, Creatinine 1.07, Estim Creat Clear Calc 110.03, Est GFR (MDRD) Non-Af 64, BUN/Creatinine Ratio 29.7 H, Glucose 525 H*, Lactic Acid 1.9, Calcium8.2, Total Bilirubin 0.23, AST 24, ALT 23, Alkaline Phosphatase 81, Troponin T High Sens 37 H, NT pro BNP II 163, Total Protein 6.7, Albumin 3.5, Globulin 3.2,Albumin/Globulin Ratio 1.1 Imaging Radiology Impression Chest X-Ray 08/16/25 19:05 IMPRESSION: Cardiomegaly with vascular congestion. No airspace consolidation or pleural effusions. Reading Location: [facility] Assessment & Plan Assessment/Plan (1) Cellulitis of leg: QUALIFIERS: Laterality: left Qualified Code(s): L03.116 - Cellulitis of left lower limb PLAN: Plan The patient is a 50 y/o F w/ PMHx: Morbid obesity, Chronic anemia/iron deficiency anemia, CKD stage II versus III, uncertain, HFpEF, COPD w/ Chronic Hypoxic and Hypercapnic Respiratory Failure (4L NC), LOGAN on BIPAP, HTN, HLD, GERD, Anxiety and Depression, Former Tobacco use, Diabetes mellitus type II withchronic neuropathy, Hx VTE who presents to the [facility] ED on 08/16/2025 with history of increasing edema to the lower extremity, dyspnea worsewith exertion with drainage to the right lower extremity and redness with subjective fever and chills noting that the edema to the right has been greater with notable orthopnea concurrently with some admission that she has not been compliant intermittently with her PAP therapy prompting eventual ED evaluation. #1. Acute right anterior mid lower extremity cellulitis (no obvious abscess) with seeping stasis wounds BL, R>L, complicated by underlying bilateral lower extremity venous stasis dermatitis with #2 as noted: Will admit to PCU, will maintain on IV Vanco and Unasyn, pending wound Cx per ED and will also request wound MRSA PCR, plan repeat CBC in AM, continue affected extremity elevation above heart when seated and in bed, monitor erythema outline with VS checks, continue home Eliquis regimen, if able to tolerate will place neck tushar wraps with lower extremity elevation, requested procalcitonin, diuresis to assist alsoas noted. #2. Questionable Acute Decompensated HFpEF with indeterminate cardiac enzymes suspected secondary to demand: Will maintain on cardiac telemetry obtain cardiacenzyme series, obtain serial EKGs, continue IV lasix diuresis as this will also help with #1, monitor I/Os, maintain on intake restriction, continue medical therapy, obtain TSH and magnesium level. Most recent echo noted 11/12/2024 with EF 55% with no evidence of diastolic dysfunction thus will not repeat. Complicates #1, will maintain snug tushar wraps with lower extremity elevation if able to tolerate. BiPAP as needed with naps and nightly encouraged strongly. PT/OT/case management consulted for discharge planning. #3. Diabetes mellitus type II w/ Hyperglycemia with chronic neuropathy: Likely hyperglycemia is associated with acute presentation as noted, hemoglobin A1c requested with last noted 11/10/24 10.4%, hold oral home regimen, continue home insulin regimen with adjustments as needed although currently attempting to clarify her home long-acting specific dosing, ADA diet, accu checks w/ ISS, continue home pregabalin regimen. #4. Chronic Kidney Disease Stage II based on previous GFR trending but has vacillated and sometimes been consistent with stage III but unclear if this is acutely, will discern further with further lab assessment: Admission BUN/Cr 32/1.07, GFR 64, GFR 45, baseline renal function primarily 0.8-1.1, GFR has certainly vacillated thus unclear if stage II versus stage III, will continue totrend to further elucidate. #5. Chronic normocytic anemia/iron deficiency anemia: Admission hemoglobin 9.2,MCV 90.8, baseline hemoglobin primarily recently 8-9 range, we will continue to trend CBC, continue iron supplementation. #6. Chronic COPD with chronic hypoxic and hypercarbic respiratory failure (4L NC) with allergic rhinitis: Will maintain on oxygen supplementation with wean astolerated to home oxygen 4 L nasal cannula supplementation, continue ATC budesonide therapy, PRN albuterol, HOB, IS parameters. Temporally holding loratadine regimen. #7. Anxiety and depression: We will continue patient home lorazepam and duloxetine home regimen. #8. Hypertension: Continue home regimen including diltiazem, lisinopril, metoprolol, Lasix IV as noted, PRN hydralazine. #9. Hyperlipidemia: Continue home statin and fenofibrate regimen. FLP in AM. #10. History of VTE: We will continue patient home apixaban regimen. #11. GERD: We will continue patient home PPI. #12. LOGAN: Will place on BiPAP nightly, encourage compliance. #13. Former Tobacco Abuse: Encouraged continued tobacco cessation, notes quit for approximately 1 year. #14. DVT prophylaxis: Eliquis. #15. CODE status: Patient JAKE is her daughter and living will is in place. Full Code status. Charges/Coding Visit Charges Inpatient E&M: 48248 Init Hosp L3 08/16/25 0510 <Electronically signed by Olamide Mas MD> Cosigner Signature (if applicable): CC: Dr. Olamide Mas MD; Dr. Delmy Solorzano MD~ Signed [facility] Work Phone: Hospital Discharge instructions Additional Instructions Please follow-up with your surgeon for repeat evaluation. Take antibiotic as directed to resolve any returning infection and if you have any further concerns or develop a fever please return [facility] the [facility] Work Phone: Hospital Discharge instructions Additional Instructions Please contact your family doctor to check if they want you to increase your Lasix for the next few days based on your increased swelling. However your marker for heart failure is normal and your chest x-ray shows no signs of retained fluid. You will be placed on antibiotics for the infection in your legs and if you develop a fever or have any further concerns please return for repeat evaluation.[facility] Work Phone: Hospital Discharge instructions Additional Instructions Please continue all of your home medications as directed by your family doctor and return to the ER should you have any further concernsWooUniversity [facility] Work Phone: Patient's home Plan of care note* Visit Details Visit Type -SN SOC Discipline -Alf Problems Problem Description Start Date Status Goals Interve ntions Physician Specific Parameters Disciplines: Skilled Services 02/23/2023 Active 1 goal linked to scheduled/document ed intervention 1 goal intervention scheduled/documente d in this visit Risk for Falls Disciplines: Skilled Services 02/23/2023 Active 1 goal linked to scheduled/document ed intervention 1 goal intervention scheduled/documente d in this visit Pain Disciplines: Skilled Services 02/23/2023 Active 1 goal linked to scheduled/document ed intervention 1 goal intervention scheduled/documente d in this visit Oxygen Disciplines: Skilled Services 02/23/2023 Active 1 goal linked to scheduled/document ed intervention 1 goal intervention scheduled/documente d in this visit SN Edema Disciplines: 02/23/2023 Active 1 goal linked to scheduled/document ed intervention 1 goal intervention scheduled/documente d in this visit SN Integumentary/W ounds Disciplines: 02/23/2023 Active 1 goal linked to scheduled/document ed intervention 2 goal interventions scheduled/documente d in this visit SN Diabetes Disciplines: 02/23/2023 Active 1 goal linked to scheduled/document ed intervention 1 goal intervention scheduled/documente d in this visit SN Learning Assessment Disciplines: 02/23/2023 Active 1 goal linked to scheduled/document ed intervention 1 goal intervention scheduled/documente d in this visit Goals Goal Associated Problem Outcome Goal Met? Visit Notes Patient to maintain parameters within physician-specified ranges throughout certification period Physician Specific Parameters No Manage Risk for falls Description: Patient/caregiver will verbalize knowledge of individualized fall prevention strategies by 04/23/23. Risk for Falls No Manage Pain Description: Patient/caregiver will verbalize knowledge and understanding of appropriate techniques to control pain, including pain medication. Patient will verbalize or demonstrate an acceptable level of pain as evidenced by a pain score of 10/10 and improvement in ability to perform activities of daily living to be achieved by 04/23/23. Pain No Manage oxygen Description: Patient/caregiver will use oxygen safely and effectively in home by verbalizing and demonstrating oxygen safety by 04/23/23. Oxygen No Patient will have improved edema management Description: Patient/caregiver will demonstrate an understanding of edema management strategies as evidenced by resolution or stabilization of edema by 04/23/23. SN Edema No Patient/Caregiver will have improved healing and be free of signs and symptoms of complications Description: Patient/caregiver will verbalize management strategies to promote wound healing & prevent complications as evidenced by improved healing & no complications by 04/23/23. SN Integumentary/Wounds No Improved management of diabetes Description: Improve diabetic management as evidenced by patient/caregiver able to teach back diabetic management strategies by 04/23/23. SN Diabetes No Demonstrate understanding of education Description: Patient and/or caregiver will verbalize understanding of educational instruction provided throughout certification period. SN Learning Assessment No Interventions Intervention Associated Problem/Goal Status Variance Visit Notes SPO2 Description: Stop activity if pulse ox is <92% at rest. Problem:Physician Specific Parameters Goal:Patient to maintain parameters within physician-specified ranges throughout certification period Completed Instruct on individual fall risk factors and strategies to prevent falls and injuries caused by falls. Problem:Risk for Falls Goal:Manage Risk for falls Completed SN: Patient instructed on Eliminating Environmental Hazards: Keep pathways clear, Keep pets out of pathways and Remove unsafe rugs Instruct on pain and instruct on strategies to control pain Problem:Pain Goal:Manage Pain Completed patient instructed on techniques to control pain including Pharmacological measures. Instruct on fire safety and safe and effective use of oxygen in the home Problem:Oxygen Goal:Manage oxygen Completed patient instructed on: findings of safety risk assessment, causes of fires and firerisks for neighboring residences and buildings. Instructed patient NOT to smoke with oxygen may cause fie Assess and instruct on measures to reduce edema Problem:SN Edema Goal:Patient will have improved edema management Completed patient instructed on elevation. Wound Care: Perform wound care (2) Description: Wound Care Order: Wound location: left lower leg Wound type (etiology): Venous Ulcer Order: Clean with normal saline pat dry apply adaptic then calcium alginate, cover with foam dressing or dsd Frequency: daily Wound care to be completed by caregiver except for scheduled SN wound care visits. Measure wound/incision at least weekly. Okay to substitute comparable products from home care formulary. Problem:SN Integumentary/Wounds Goal:Patient/Caregive r will have improved healing and be free of signs and symptoms of complications Completed Completed by SN. Patient did tolerate well. Wound Care: Perform wound care (1) Description: Wound Care Order: Wound location: Left pelvic perineum area Wound type (etiology): Abscess Order: Clean with normal saline pack with wet to dry cover with ABD pad and secure with tape Frequency: twice daily Wound care to be completed by caregiver except for scheduled SN wound care visits. Measure wound/incision at least weekly. Okay to substitute comparable products from home care formulary. Problem:SN Integumentary/Wounds Goal:Patient/Caregive r will have improved healing and be free of signs and symptoms of complications Completed Completed by SN. Patient did tolerate well. Instruct on diabetes disease process and management of chronic condition Description: Patient has needs for education of diabetes. Problem:SN Diabetes Goal:Improved management of diabetes Completed patient assessed and instructed on diabetes disease process Instruct and educate on knowledge deficits Problem:SN Learning Assessment Goal:Demonstrate understanding of education Completed patient verbalize and/or demonstrate understanding of nursing education completed today. Education methods include: verbal cues. Further education required to improve knowledge and compliance with fall prevention/home safety strategies, incision/wound care management, infection control precautions, integumentary care management, medication management and oxygen safety. [facility] Visit Details Visit Type -Care Coordinatio n Discipline -Meat Pumper Problems Problem Description Start Date Status Goals Interve ntions IRON CARRIER Referral Disciplines: Skilled Services 02/23/2023 Resolved on 02/25/2023 1 goal linked to scheduled/document ed intervention 1 goal intervention scheduled/document ed in this visit Goals Goal Associated Problem Outcome Goal Met? Visit Notes Patient will be referred to additional discipline as needed IRON CARRIER Referral Completed Yes Interventions Intervention Associated Problem/Goal Status Variance Visit Notes IRON CARRIER evaluation and treatment Description: IRON CARRIER Referral eval and treat for Community [employer]. Patient states she is on waiver and is in need of an aide, electric, wheel chair, raised recliner states CM is working on these items Problem:IRON CARRIER Referral Goal:Patient will be referred to additional discipline as needed Completed [facility] Visit Details Visit Type -SN ROUTINE Discipline -Alf Problems Problem Description Start Date Status Goals Interve ntions Medication Education Disciplines: Skilled Services 02/23/2023 Active 1 goal linked to scheduled/document ed intervention 1 goal intervention scheduled/documente d in this visit Risk for skin breakdown Disciplines: Skilled Services 02/23/2023 Active 1 goal linked to scheduled/document ed intervention 1 goal intervention scheduled/documente d in this visit Physician Specific Parameters Disciplines: Skilled Services 02/23/2023 Active 1 goal linked to scheduled/document ed intervention 1 goal intervention scheduled/documente d in this visit Risk for Falls Disciplines: Skilled Services 02/23/2023 Active 1 goal linked to scheduled/document ed intervention 1 goal intervention scheduled/documente d in this visit Pain Disciplines: Skilled Services 02/23/2023 Active 1 goal linked to scheduled/document ed intervention 1 goal intervention scheduled/documente d in this visit SN Integumentary/W ounds Disciplines: SN 02/23/2023 Active 1 goal linked to scheduled/document ed intervention 2 goal interventions scheduled/documente d in this visit SN Learning Assessment Disciplines: SN 02/23/2023 Active 1 goal linked to scheduled/document ed intervention 1 goal intervention scheduled/documente d in this visit Goals Goal Associated Problem Outcome Goal Met? Visit Notes Patient/caregiver will demonstrate ability to obtain, store, identify and administer ordered medications, keep accurate medication list in home, and adhere to medication schedule Description: Patient/caregiver will demonstrate ability to obtain, store, identify and administer ordered medications, keep accurate medication list in home, and adhere to medication schedule by 04/23/23. Medication Education No Manage risk for skin breakdown Description: Patient/caregiver will verbalize and demonstrate understanding of the risks and measures to be taken to monitor and prevent skin breakdown by 04/23/23. Risk for skin breakdown No Patient to maintain parameters within physician-specified ranges throughout certification period Physician Specific Parameters No Manage Risk for falls Description: Patient/caregiver will verbalize knowledge of individualized fall prevention strategies by 04/23/23. Risk for Falls No Manage Pain Description: Patient/caregiver will verbalize knowledge and understanding of appropriate techniques to control pain, including pain medication. Patient will verbalize or demonstrate an acceptable level of pain as evidenced by a pain score of 10/10 and improvement in ability to perform activities of daily living to be achieved by 04/23/23. Pain No Patient/Caregiver will have improved healing and be free of signs and symptoms of complications Description: Patient/caregiver will verbalize management strategies to promote wound healing & prevent complications as evidenced by improved healing & no complications by 04/23/23. SN Integumentary/Wounds No Demonstrate understanding of education Description: Patient and/or caregiver will verbalize understanding of educational instruction provided throughout certification period. SN Learning Assessment No Interventions Intervention Associated Problem/Goal Status Variance Visit Notes Medication Education Description: Evaluate/instruct patient/caregiver on obtaining, storing, identifying and administering ordered medications as well as keeping accurate medication list in the home and adhereing to medication schedule Problem:Medication Education Goal:Patient/caregive r will demonstrate ability to obtain, store, identify and administer ordered medications, keep accurate medication list in home, and adhere to medication schedule Completed Patient instructed on adhering to medication schedule. Instruct on the risks and measures to be taken to prevent skin breakdown Description: Patient's Aldo Score is: 18. A Aldo score <= to 18 indicates risk for skin breakdown. Problem:Risk for skin breakdown Goal:Manage risk for skin breakdown Completed patient instructed on maintaining skin integrity including: Routine skin care SPO2 Description: Stop activity if pulse ox is <92% at rest. Problem:Physician Specific Parameters Goal:Patient to maintain parameters within physician-specified ranges throughout certification period Completed Instruct on individual fall risk factors and strategies to prevent falls and injuries caused by falls. Problem:Risk for Falls Goal:Manage Risk for falls Completed SN: Patient instructed on Eliminating Environmental Hazards: Keep pathways clear Instruct on pain and instruct on strategies to control pain Problem:Pain Goal:Manage Pain Completed patient instructed on techniques to control pain including Non-Pharmacological measures; breathing/relaxation. Wound Care: Perform wound care (2) Description: Wound Care Order: Wound location: left lower leg Wound type (etiology): Venous Ulcer Order: Clean with normal saline pat dry apply adaptic then calcium alginate, cover with foam dressing or dsd Frequency: daily Wound care to be completed by caregiver except for scheduled SN wound care visits. Measure wound/incision at least weekly. Okay to substitute comparable products from home care formulary. Problem:SN Integumentary/Wounds Goal:Patient/Caregive r will have improved healing and be free of signs and symptoms of complications Completed Completed by SN. Patient did tolerate well. Wound Care: Perform wound care (1) Description: Wound Care Order: Wound location: Left pelvic perineum area Wound type (etiology): Abscess Order: Clean with normal saline pack with wet to dry cover with ABD pad and secure with tape Frequency: twice daily Wound care to be completed by caregiver except for scheduled SN wound care visits. Measure wound/incision at least weekly. Okay to substitute comparable products from home care formulary. Problem:SN Integumentary/Wounds Goal:Patient/Caregive r will have improved healing and be free of signs and symptoms of complications Completed Completed by SN. Patient did tolerate well. Instruct and educate on knowledge deficits Problem:SN Learning Assessment Goal:Demonstrate understanding of education Completed patient verbalize and/or demonstrate understanding of nursing education completed today. Education methods include: verbal cues. Further education required to improve knowledge and compliance with fall prevention/home safety strategies, incision/wound care management, medication management, nutrition and pain management. documented in this encounter [facility]'s home Plan of care note* Visit Details Visit Type -SN AGENCY DC WO VISIT Discipline -Alf Problems Problem Description Start Date Status Goals Interve ntions Medication Education Disciplines: Skilled Services 02/23/2023 Resolved on 03/03/2023 1 goal linked to scheduled/documente d intervention Risk for skin breakdown Disciplines: Skilled Services 02/23/2023 Resolved on 03/03/2023 1 goal linked to scheduled/documente d intervention Physician Specific Parameters Disciplines: Skilled Services 02/23/2023 Resolved on 03/03/2023 1 goal linked to scheduled/documente d intervention Risk for Falls Disciplines: Skilled Services 02/23/2023 Resolved on 03/03/2023 1 goal linked to scheduled/documente d intervention Pain Disciplines: Skilled Services 02/23/2023 Resolved on 03/03/2023 1 goal linked to scheduled/documente d intervention Diabetic Foot Care Disciplines: Skilled Services 02/23/2023 Resolved on 03/03/2023 1 goal linked to scheduled/documente d intervention Oxygen Disciplines: Skilled Services 02/23/2023 Resolved on 03/03/2023 1 goal linked to scheduled/documente d intervention High Risk Medications Disciplines: Skilled Services 02/23/2023 Resolved on 03/03/2023 1 goal linked to scheduled/documente d intervention Discharge Disciplines: Skilled Services 02/23/2023 Resolved on 03/03/2023 1 goal linked to scheduled/documente d intervention Advance Directives Disciplines: Skilled Services 02/23/2023 Resolved on 03/03/2023 1 goal linked to scheduled/documente d intervention SN Edema Disciplines: SN 02/23/2023 Resolved on 03/03/2023 1 goal linked to scheduled/documente d intervention SN Integumentary/W ounds Disciplines: SN 02/23/2023 Resolved on 03/03/2023 1 goal linked to scheduled/documente d intervention SN Diabetes Disciplines: SN 02/23/2023 Resolved on 03/03/2023 1 goal linked to scheduled/documente d intervention SN Learning Assessment Disciplines: SN 02/23/2023 Resolved on 03/03/2023 1 goal linked to scheduled/documente d intervention Goals Goal Associated Problem Outcome Goal Met? Visit Notes Patient/caregiver will demonstrate ability to obtain, store, identify and administer ordered medications, keep accurate medication list in home, and adhere to medication schedule Description: Patient/caregiver will demonstrate ability to obtain, store, identify and administer ordered medications, keep accurate medication list in home, and adhere to medication schedule by 04/23/23. Medication Education Completed Yes Manage risk for skin breakdown Description: Patient/caregiver will verbalize and demonstrate understanding of the risks and measures to be taken to monitor and prevent skin breakdown by 04/23/23. Risk for skin breakdown Completed Yes Patient to maintain parameters within physician-specified ranges throughout certification period Physician Specific Parameters Completed Yes Manage Risk for falls Description: Patient/caregiver will verbalize knowledge of individualized fall prevention strategies by 04/23/23. Risk for Falls Completed Yes Manage Pain Description: Patient/caregiver will verbalize knowledge and understanding of appropriate techniques to control pain, including pain medication. Patient will verbalize or demonstrate an acceptable level of pain as evidenced by a pain score of 10/10 and improvement in ability to perform activities of daily living to be achieved by 04/23/23. Pain Completed Yes Manage diabetic foot care Description: Patient/caregiver will demonstrate basic understanding of and compliance with diabetic self-care management as evidenced by verbalizing purpose of daily foot care and assessment by 04/23/23. Diabetic Foot Care Completed Yes Manage oxygen Description: Patient/caregiver will use oxygen safely and effectively in home by verbalizing and demonstrating oxygen safety by 04/23/23. Oxygen Completed Yes Patient/caregiver will teach back high risk medication side effect and precaution education High Risk Medications Completed Yes Manage discharge planning Description: Patient/caregiver will verbalize understanding of ongoing discharge plan provided related to disease management, arrangements for outpatient and/or community services, obtaining medications, supplies, and DME, as needed throughout certification period. Discharge Completed Yes Patient/caregiver will make healthcare providers aware of and any changes to Advance Directives throughout certification period Advance Directives Completed Yes Patient will have improved edema management Description: Patient/caregiver will demonstrate an understanding of edema management strategies as evidenced by resolution or stabilization of edema by 04/23/23. SN Edema Completed Yes Patient/Caregiver will have improved healing and be free of signs and symptoms of complications Description: Patient/caregiver will verbalize management strategies to promote wound healing & prevent complications as evidenced by improved healing & no complications by 04/23/23. SN Integumentary/Wounds Completed Yes Improved management of diabetes Description: Improve diabetic management as evidenced by patient/caregiver able to teach back diabetic management strategies by 04/23/23. SN Diabetes Completed Yes Demonstrate understanding of education Description: Patient and/or caregiver will verbalize understanding of educational instruction provided throughout certification period. SN Learning Assessment Completed Yes documented in this encounter [facility] Plan of care note* Visit Details Visit Type -SN SOC Discipline -Alf Problems Problem Description Start Date Status Goals Interve ntions Medication Education Disciplines: Skilled Services 03/07/2023 Active 1 goal linked to scheduled/documen mitul intervention 1 goal intervention scheduled/document ed in this visit Sepsis Disciplines: Skilled Services 03/07/2023 Active 1 goal linked to scheduled/documen mitul intervention 2 goal interventions scheduled/document ed in this visit Risk for skin breakdown Disciplines: Skilled Services 03/07/2023 Active 1 goal linked to scheduled/documen mitul intervention 1 goal intervention scheduled/document ed in this visit Physician Specific Parameters Disciplines: Skilled Services 03/07/2023 Active 1 goal linked to scheduled/documen mitul intervention 1 goal intervention scheduled/document ed in this visit Risk for Falls Disciplines: Skilled Services 03/07/2023 Active 1 goal linked to scheduled/documen mitul intervention 1 goal intervention scheduled/document ed in this visit Pain Disciplines: Skilled Services 03/07/2023 Active 1 goal linked to scheduled/documen mitul intervention 1 goal intervention scheduled/document ed in this visit Diabetic Foot Care Disciplines: Skilled Services 03/07/2023 Active 1 goal linked to scheduled/documen mitul intervention 1 goal intervention scheduled/document ed in this visit Oxygen Disciplines: Skilled Services 03/07/2023 Active 1 goal linked to scheduled/documen mitul intervention 1 goal intervention scheduled/document ed in this visit Nutrition/Hydration Disciplines: Skilled Services 03/07/2023 Active 1 goal linked to scheduled/documen mitul intervention 1 goal intervention scheduled/document ed in this visit High Risk Medications Disciplines: Skilled Services 03/07/2023 Active 1 goal linked to scheduled/documen mitul intervention 2 goal interventions scheduled/document ed in this visit Advance Directives Disciplines: Skilled Services 03/07/2023 Active 1 goal linked to scheduled/documen mitul intervention 1 goal intervention scheduled/document ed in this visit SN Integumentary/Wound s Disciplines: SN 03/07/2023 Active 1 goal linked to scheduled/documen mitul intervention 1 goal intervention scheduled/document ed in this visit SN Cardiovascular Condition Disciplines: SN 03/07/2023 Active 1 goal linked to scheduled/documen mitul intervention 1 goal intervention scheduled/document ed in this visit SN Learning Assessment Disciplines: 03/07/2023 Active 1 goal linked to scheduled/documen mitul intervention 1 goal intervention scheduled/document ed in this visit SN Genitourinary disease process Disciplines: 03/07/2023 Active 1 goal linked to scheduled/documen mitul intervention 1 goal intervention scheduled/document ed in this visit Goals Goal Associated Problem Outcome Goal Met? Visit Notes Patient/caregiver will demonstrate ability to obtain, store, identify and administer ordered medications, keep accurate medication list in home, and adhere to medication schedule Description: Patient/caregiver will demonstrate ability to obtain, store, identify and administer ordered medications, keep accurate medication list in home, and adhere to medication schedule by 05/05/23. Medication Education No Patient/caregiver will be able to identify and report symptoms of sepsis Description: Patient/caregiver will be able to identify signs/symptoms of sepsis infection and will verbalize actions to take if suspected by 05/05/23. Sepsis No Manage risk for skin breakdown Description: Patient/caregiver will verbalize and demonstrate understanding of the risks and measures to be taken to monitor and prevent skin breakdown by 05/05/23. Risk for skin breakdown No Patient to maintain parameters within physician-specified ranges throughout certification period Physician Specific Parameters No Manage Risk for falls Description: Patient/caregiver will verbalize knowledge of individualized fall prevention strategies by 05/05/23. Risk for Falls No Manage Pain Description: Patient/caregiver will verbalize knowledge and understanding of appropriate techniques to control pain, including non-pharmacological techniques. Patient will verbalize or demonstrate an acceptable level of pain as evidenced by a pain score of 4/10 and improvement in ability to perform activities of daily living to be achieved by 05/05/23. Pain No Manage diabetic foot care Description: Patient/caregiver will demonstrate basic understanding of and compliance with diabetic self-care management as evidenced by verbalizing purpose of daily foot care and assessment by 05/05/23. Diabetic Foot Care No Manage oxygen Description: Patient/caregiver will use oxygen safely and effectively in home by verbalizing and demonstrating oxygen safety by 05/05/23. Oxygen No Manage Nutrition/Hydration Description: Patient/caregiver will verbalize/demonstrate knowledge of prescribed diet and/or healthy nutrition to be achieved by 05/05/23. Nutrition/Hydration No Patient/caregiver will teach back high risk medication side effect and precaution education High Risk Medications No Patient/caregiver will make healthcare providers aware of and any changes to Advance Directives throughout certification period Advance Directives No Patient/Caregiver will have improved healing and be free of signs and symptoms of complications Description: Patient/caregiver will verbalize management strategies to promote wound healing & prevent complications as evidenced by improved healing & no complications by 05/05/23. SN Integumentary/Wounds No Improved management of cardiovascular disease Description: Improve patient/caregiver management of cardiac disease as evidenced by patient/caregiver ability to teach back cardiac management strategies by 05/05/23. SN Cardiovascular Condition No Demonstrate understanding of education Description: Patient and/or caregiver will verbalize understanding of educational instruction provided throughout certification period. SN Learning Assessment No Patient/Caregiver will verbalize understanding and demonstrate improved management of genitourinary disease/condition. Description: Patient/Caregiver will state understanding of genitourinary disease/condition and be able to teach back management strategies by 05/05/23. SN Genitourinary disease process No Interventions Intervention Associated Problem/Goal Status Variance Visit Notes Medication Education Description: Evaluate/instruct patient/caregiver on obtaining, storing, identifying and administering ordered medications as well as keeping accurate medication list in the home and adhereing to medication schedule Problem:Medication Education Goal:Patient/caregive r will demonstrate ability to obtain, store, identify and administer ordered medications, keep accurate medication list in home, and adhere to medication schedule Completed Patient instructed on importance of keeping accurate medication list in home and adhering to medication schedule. Sepsis aftercare Description: Patient recenty treated for sepsis related to cellulitis. Educate on signs/symptoms of recurrent infection and actions to take if suspected. Problem:Sepsis Goal:Patient/caregive r will be able to identify and report symptoms of sepsis Completed Patient instructed on signs/symptoms of recurrent infection including fever >101, hypothermia <96.8, tachycardia >90 or higher per their baseline, tachypnea >20 or higher per their baseline, SBP <90mmHg or 40mmHg change in BP from baseline, decreased pulse ox <92% with increased shortness of breath, increase in 02 requirements, new or worsening onset of pain, decreased urine output and new onset change in mentation status. Risk of Sepsis Description: Patient is at risk for sepsis. Monitor closely for s/s of sepsis. Problem:Sepsis Goal:Patient/caregive r will be able to identify and report symptoms of sepsis Completed Instruct on the risks and measures to be taken to prevent skin breakdown Description: Patient's Aldo Score is: 18. A Aldo score <= to 18 indicates risk for skin breakdown. Problem:Risk for skin breakdown Goal:Manage risk for skin breakdown Completed patient instructed on maintaining skin integrity including: The need for every 1-2 hour turns, position changes, and maintaining activity as tolerated, Reducing risk of friction and shear, including use of draw sheet as appropriate, Elevating and protecting heels, Incontinence care, Inspecting bony prominences, Routine skin care and Notifying [facility] clinician of changes to skin integrity SPO2 Description: Stop activity if pulse ox is <92% at rest. Problem:Physician Specific Parameters Goal:Patient to maintain parameters within physician-specified ranges throughout certification period Completed Instruct on individual fall risk factors and strategies to prevent falls and injuries caused by falls. Problem:Risk for Falls Goal:Manage Risk for falls Completed SN: Patient instructed on Eliminating Environmental Hazards: Keep pathways clear, Remove unsafe rugs, Keep rooms and walkways well lit, Wear supportive shoes or non-skid socks and Keep frequently used items within reach Managing Impaired Functional Mobility: Use assistive device(s): rollator walker and Caregiver to provide assist with: Ambulation, Steps, Transfers and ADL/IADLs Instruct on pain and instruct on strategies to control pain Problem:Pain Goal:Manage Pain Completed patient instructed on techniques to control pain including Non-Pharmacological measures; rest, positioning/elevation and distraction. Monitor lower extremities for skin lesions and educate on proper foot care Problem:Diabetic Foot Care Goal:Manage diabetic foot care Completed patient instructed on diabetic foot care including daily skin inspection, wearing proper footwear/avoiding going barefoot, wash/dry feet thoroughly and applying moisturizer, avoiding between toes. Instruct on fire safety and safe and effective use of oxygen in the home Problem:Oxygen Goal:Manage oxygen Completed patient instructed on: findings of safety risk assessment, causes of fires, firerisks for neighboring residences and buildings, precautions that can prevent fire-related injuries, oxygen safety as outlined in Home Care Patient Handbook and recommendations for specific safety risks identified in the home: maintenance of working smoke detectors and changing batteries, how to obtain fire extinguisher, establishment of fire escape plan and implementation of no-smoking policy in home, including e-cigarettes and posting of No-Smoking signs on entrance doors patient demonstrate compliance with safety recommendations. Define patient s appetite/hydration status and implement strategies to improve compliance with prescribed diet and/or healthy nutrition. Problem:Nutrition/Hyd ration Goal:Manage Nutrition/Hydration Completed instructed patient on implementing strategies to comply with prescribed diet, healthy nutrition and adequate hydration Hypoglycemic (including insulin)- educated on high risk medication Problem:High Risk Medications Goal:Patient/caregive r will teach back high risk medication side effect and precaution education Completed patient educated on taking medication(s) as prescribed by provider. Do not stop medication or skip/alter doses without speaking with your provider. Discuss medication effectiveness or side effect concerns with your provider and home care team. Check blood sugars and keep log as ordered by provider. Monitor for side effects of hypoglycemia such as increased weakness or shaking, moist skin, sweating, fast heartbeat, dizziness, sudden hunger, confusion, pale skin, numbness in mouth or tongue, irritability, nervousness, unsteadiness, nightmares, bad dreams, and restless sleep. Checking your blood sugar routinely and eating a consistent diabetic diet can help regulate blood sugars and reduce side effects. Anticoagulant- educated on high risk medication Problem:High Risk Medications Goal:Patient/caregive r will teach back high risk medication side effect and precaution education Completed patient educated on anticoagulant medication Eliquis Take your medication as instructed and at the same time each day. Do not stop medication or alter doses without speaking with your provider. Discuss medication effectiveness or side effect concerns with your provider and home care team. Discuss all medications you are taking, even [id number] medicines, with your provider and pharmacist since many drugs can interact with anticoagulants. Tell anyone providing medical or dental care that you are taking an anticoagulant. DO NOT STOP your medication even for a minor procedure like dental work without first checking with the provider. If you forget to take a dose, DO NOT take a double dose. Take the missed dose as soon as possible on the same day. DO NOT take a double dose the next day to make up for the missed dose. Watch for signs of abnormal or excessive bleeding and bruising (refer to Bleeding Precautions education). Call your health care provider right away if you suspect something is wrong. Determine patient's Advance Directive Status Description: Patient does not have advance directives. Patient/Caregiver declined Advance Directive information. Problem:Advance Directives Goal:Patient/caregive r will make healthcare providers aware of and any changes to Advance Directives throughout certification period Completed Discussed Advance Directives with Patient and/or Caregiver. Referred patient to Home Care handbook for further information on Healthcare DPOA & Living Will. Wound Care: Perform wound care (1) Description: Wound Care Order: Wound location: Pelvis Anterior;Medial;Lower Wound type (etiology): Cellulitis Order: Cleanse mechanically debride wound daily with soap and water, pat dry. Place Aquacel [employer] and cover with dry dressing. Frequency: Daily prn Wound care to be completed by caregiver except for scheduled SN wound care visits. Measure wound/incision at least weekly. Okay to substitute comparable products from home care formulary. Problem:SN Integumentary/Wounds Goal:Patient/Caregive r will have improved healing and be free of signs and symptoms of complications Completed Completed by SN. Patient did tolerate well. Instruct on cardiovascular disease process and management of condition Description: Patient has following cardiac diagnosis(es): Hypertension. Problem:SN Cardiovascular Condition Goal:Improved management of cardiovascular disease Completed patient instructed on cardiac disease process. Instruct and educate on knowledge deficits Problem:SN Learning Assessment Goal:Demonstrate understanding of education Completed patient verbalize and/or demonstrate understanding of nursing education completed today. Education methods include: verbal cues. Further education required to improve knowledge and compliance with cardiac disease management, diabetic care management, fall prevention/home safety strategies, incision/wound care management, medication management and nutrition. Incontinence- Instruct Patient/Caregiver on measures to manage urinary incontinence Problem:SN Genitourinary disease process Goal:Patient/Caregive r will verbalize understanding and demonstrate improved management of genitourinary disease/condition. Completed patient instructed on measures to manage Urinary incontinence including: use of pads/protective garments and skin care after incontinence episode. [facility] Visit Details Visit Type -SN ROUTINE Discipline -Alf Problems Problem Description Start Date Status Goals Interve ntions Medication Education Disciplines: Skilled Services 03/07/2023 Active 1 goal linked to scheduled/documen mitul intervention 1 goal intervention scheduled/document ed in this visit Sepsis Disciplines: Skilled Services 03/07/2023 Active 1 goal linked to scheduled/documen mitul intervention 2 goal interventions scheduled/document ed in this visit Risk for skin breakdown Disciplines: Skilled Services 03/07/2023 Active 1 goal linked to scheduled/documen mitul intervention 1 goal intervention scheduled/document ed in this visit Physician Specific Parameters Disciplines: Skilled Services 03/07/2023 Active 1 goal linked to scheduled/documen mitul intervention 1 goal intervention scheduled/document ed in this visit Risk for Falls Disciplines: Skilled Services 03/07/2023 Active 1 goal linked to scheduled/documen mitul intervention 1 goal intervention scheduled/document ed in this visit Pain Disciplines: Skilled Services 03/07/2023 Active 1 goal linked to scheduled/documen mitul intervention 1 goal intervention scheduled/document ed in this visit Diabetic Foot Care Disciplines: Skilled Services 03/07/2023 Active 1 goal linked to scheduled/documen mitul intervention 1 goal intervention scheduled/document ed in this visit Oxygen Disciplines: Skilled Services 03/07/2023 Active 1 goal linked to scheduled/documen mitul intervention 1 goal intervention scheduled/document ed in this visit Nutrition/Hydration Disciplines: Skilled Services 03/07/2023 Active 1 goal linked to scheduled/documen mitul intervention 1 goal intervention scheduled/document ed in this visit High Risk Medications Disciplines: Skilled Services 03/07/2023 Active 1 goal linked to scheduled/documen mitul intervention 2 goal interventions scheduled/document ed in this visit Discharge Disciplines: Skilled Services 03/07/2023 Active 1 goal linked to scheduled/documen mitul intervention 1 goal intervention scheduled/document ed in this visit SN Integumentary/Wound s Disciplines: SN 03/07/2023 Active 1 goal linked to scheduled/documen mitul intervention 1 goal intervention scheduled/document ed in this visit SN Cardiovascular Condition Disciplines: SN 03/07/2023 Active 1 goal linked to scheduled/documen mitul intervention 1 goal intervention scheduled/document ed in this visit SN Learning Assessment Disciplines: SN 03/07/2023 Active 1 goal linked to scheduled/documen mitul intervention 1 goal intervention scheduled/document ed in this visit SN Genitourinary disease process Disciplines: 03/07/2023 Active 1 goal linked to scheduled/documen mitul intervention 1 goal intervention scheduled/document ed in this visit Goals Goal Associated Problem Outcome Goal Met? Visit Notes Patient/caregiver will demonstrate ability to obtain, store, identify and administer ordered medications, keep accurate medication list in home, and adhere to medication schedule Description: Patient/caregiver will demonstrate ability to obtain, store, identify and administer ordered medications, keep accurate medication list in home, and adhere to medication schedule by 05/05/23. Medication Education No Patient/caregiver will be able to identify and report symptoms of sepsis Description: Patient/caregiver will be able to identify signs/symptoms of sepsis infection and will verbalize actions to take if suspected by 05/05/23. Sepsis No Manage risk for skin breakdown Description: Patient/caregiver will verbalize and demonstrate understanding of the risks and measures to be taken to monitor and prevent skin breakdown by 05/05/23. Risk for skin breakdown No Patient to maintain parameters within physician-specified ranges throughout certification period Physician Specific Parameters No Manage Risk for falls Description: Patient/caregiver will verbalize knowledge of individualized fall prevention strategies by 05/05/23. Risk for Falls No Manage Pain Description: Patient/caregiver will verbalize knowledge and understanding of appropriate techniques to control pain, including non-pharmacological techniques. Patient will verbalize or demonstrate an acceptable level of pain as evidenced by a pain score of 4/10 and improvement in ability to perform activities of daily living to be achieved by 05/05/23. Pain No Manage diabetic foot care Description: Patient/caregiver will demonstrate basic understanding of and compliance with diabetic self-care management as evidenced by verbalizing purpose of daily foot care and assessment by 05/05/23. Diabetic Foot Care No Manage oxygen Description: Patient/caregiver will use oxygen safely and effectively in home by verbalizing and demonstrating oxygen safety by 05/05/23. Oxygen No Manage Nutrition/Hydration Description: Patient/caregiver will verbalize/demonstrate knowledge of prescribed diet and/or healthy nutrition to be achieved by 05/05/23. Nutrition/Hydration No Patient/caregiver will teach back high risk medication side effect and precaution education High Risk Medications No Manage discharge planning Description: Patient/caregiver will verbalize understanding of ongoing discharge plan provided related to disease management, arrangements for outpatient and/or community services, obtaining medications, supplies, and DME, as needed throughout certification period. Discharge No Patient/Caregiver will have improved healing and be free of signs and symptoms of complications Description: Patient/caregiver will verbalize management strategies to promote wound healing & prevent complications as evidenced by improved healing & no complications by 05/05/23. SN Integumentary/Wounds No Improved management of cardiovascular disease Description: Improve patient/caregiver management of cardiac disease as evidenced by patient/caregiver ability to teach back cardiac management strategies by 05/05/23. SN Cardiovascular Condition No Demonstrate understanding of education Description: Patient and/or caregiver will verbalize understanding of educational instruction provided throughout certification period. SN Learning Assessment No Patient/Caregiver will verbalize understanding and demonstrate improved management of genitourinary disease/condition. Description: Patient/Caregiver will state understanding of genitourinary disease/condition and be able to teach back management strategies by 05/05/23. SN Genitourinary disease process No Interventions Intervention Associated Problem/Goal Status Variance Visit Notes Medication Education Description: Evaluate/instruct patient/caregiver on obtaining, storing, identifying and administering ordered medications as well as keeping accurate medication list in the home and adhereing to medication schedule Problem:Medication Education Goal:Patient/caregive r will demonstrate ability to obtain, store, identify and administer ordered medications, keep accurate medication list in home, and adhere to medication schedule Completed Patient instructed on importance of keeping accurate medication list in home and adhering to medication schedule. Sepsis aftercare Description: Patient recenty treated for sepsis related to cellulitis. Educate on signs/symptoms of recurrent infection and actions to take if suspected. Problem:Sepsis Goal:Patient/caregive r will be able to identify and report symptoms of sepsis Completed Patient instructed on signs/symptoms of recurrent infection including fever >101, hypothermia <96.8, tachycardia >90 or higher per their baseline, tachypnea >20 or higher per their baseline, SBP <90mmHg or 40mmHg change in BP from baseline, decreased pulse ox <92% with increased shortness of breath, increase in 02 requirements, new or worsening onset of pain, decreased urine output and new onset change in mentation status. Risk of Sepsis Description: Patient is at risk for sepsis. Monitor closely for s/s of sepsis. Problem:Sepsis Goal:Patient/caregive r will be able to identify and report symptoms of sepsis Completed Instruct on the risks and measures to be taken to prevent skin breakdown Description: Patient's Aldo Score is: 18. A Aldo score <= to 18 indicates risk for skin breakdown. Problem:Risk for skin breakdown Goal:Manage risk for skin breakdown Completed patient instructed on maintaining skin integrity including: The need for every 1-2 hour turns, position changes, and maintaining activity as tolerated, Reducing risk of friction and shear, including use of draw sheet as appropriate, Elevating and protecting heels, Incontinence care, Inspecting bony prominences, Routine skin care and Notifying [facility] clinician of changes to skin integrity SPO2 Description: Stop activity if pulse ox is <92% at rest. Problem:Physician Specific Parameters Goal:Patient to maintain parameters within physician-specified ranges throughout certification period Completed Instruct on individual fall risk factors and strategies to prevent falls and injuries caused by falls. Problem:Risk for Falls Goal:Manage Risk for falls Completed SN: Patient instructed on Eliminating Environmental Hazards: Keep pathways clear, Keep pets out of pathways, Remove unsafe rugs, Keep rooms and walkways well lit, Wear supportive shoes or non-skid socks and Keep frequently used items within reach Incontinence Management: Use incontinence pads/briefs Managing Impaired Functional Mobility: Use assistive device(s): rollator walker and Caregiver to provide assist with: Ambulation, Steps, Transfers and ADL/IADLs Instruct on pain and instruct on strategies to control pain Problem:Pain Goal:Manage Pain Completed patient instructed on techniques to control pain including Non-Pharmacological measures; rest, positioning/elevation, mobility/therapeutic exercise and distraction. Monitor lower extremities for skin lesions and educate on proper foot care Problem:Diabetic Foot Care Goal:Manage diabetic foot care Completed patient instructed on diabetic foot care including daily skin inspection, wearing proper footwear/avoiding going barefoot, wash/dry feet thoroughly and applying moisturizer, avoiding between toes. Instruct on fire safety and safe and effective use of oxygen in the home Problem:Oxygen Goal:Manage oxygen Completed patient instructed on: findings of safety risk assessment, causes of fires, firerisks for neighboring residences and buildings, precautions that can prevent fire-related injuries, oxygen safety as outlined in Home Care Patient Handbook and recommendations for specific safety risks identified in the home: how to obtain fire extinguisher and establishment of fire escape plan patient demonstrate compliance with safety recommendations. Define patient s appetite/hydration status and implement strategies to improve compliance with prescribed diet and/or healthy nutrition. Problem:Nutrition/Hyd ration Goal:Manage Nutrition/Hydration Completed instructed patient on implementing strategies to comply with prescribed diet, healthy nutrition and adequate hydration Hypoglycemic (including insulin)- educated on high risk medication Problem:High Risk Medications Goal:Patient/caregive r will teach back high risk medication side effect and precaution education Completed patient educated on taking medication(s) as prescribed by provider. Do not stop medication or skip/alter doses without speaking with your provider. Discuss medication effectiveness or side effect concerns with your provider and home care team. Check blood sugars and keep log as ordered by provider. Monitor for side effects of hypoglycemia such as increased weakness or shaking, moist skin, sweating, fast heartbeat, dizziness, sudden hunger, confusion, pale skin, numbness in mouth or tongue, irritability, nervousness, unsteadiness, nightmares, bad dreams, and restless sleep. Checking your blood sugar routinely and eating a consistent diabetic diet can help regulate blood sugars and reduce side effects. Anticoagulant- educated on high risk medication Problem:High Risk Medications Goal:Patient/caregive r will teach back high risk medication side effect and precaution education Completed patient educated on anticoagulant medication Eliquis Take your medication as instructed and at the same time each day. Do not stop medication or alter doses without speaking with your provider. Discuss medication effectiveness or side effect concerns with your provider and home care team. Discuss all medications you are taking, even [id number] medicines, with your provider and pharmacist since many drugs can interact with anticoagulants. Tell anyone providing medical or dental care that you are taking an anticoagulant. DO NOT STOP your medication even for a minor procedure like dental work without first checking with the provider. If you forget to take a dose, DO NOT take a double dose. Take the missed dose as soon as possible on the same day. DO NOT take a double dose the next day to make up for the missed dose. Watch for signs of abnormal or excessive bleeding and bruising (refer to Bleeding Precautions education). Call your health care provider right away if you suspect something is wrong. Instruct on ongoing discharge plan Problem:Discharge Goal:Manage discharge planning Completed Ongoing Discharge plan: Discharge plan discussed with patient including frequency and duration for home SN and plan for transition to: live independently at home without ongoing services. Wound Care: Perform wound care (1) Description: Wound Care Order: Wound location: Pelvis Anterior;Medial;Lower Wound type (etiology): Cellulitis Order: Cleanse mechanically debride wound daily with soap and water, pat dry. Place Aquacel AG and cover with dry dressing. Frequency: Daily prn Wound care to be completed by caregiver except for scheduled SN wound care visits. Measure wound/incision at least weekly. Okay to substitute comparable products from home care formulary. Problem:SN Integumentary/Wounds Goal:Patient/Caregive r will have improved healing and be free of signs and symptoms of complications Completed Completed by SN. Patient did tolerate well. Instruct on cardiovascular disease process and management of condition Description: Patient has following cardiac diagnosis(es): Hypertension. Problem:SN Cardiovascular Condition Goal:Improved management of cardiovascular disease Completed patient instructed on cardiac disease process. Instruct and educate on knowledge deficits Problem:SN Learning Assessment Goal:Demonstrate understanding of education Completed patient verbalize and/or demonstrate understanding of nursing education completed today. Education methods include: verbal cues. Further education required to improve knowledge and compliance with cardiac disease management, fall prevention/home safety strategies and incision/wound care management. Incontinence- Instruct Patient/Caregiver on measures to manage urinary incontinence Problem:SN Genitourinary disease process Goal:Patient/Caregive r will verbalize understanding and demonstrate improved management of genitourinary disease/condition. Completed patient instructed on measures to manage Urinary incontinence including: use of pads/protective garments. documented in this encounter [facility]'s home Plan of care note* Visit Details Visit Type -PT EVAL Discipline -Physical Therapy Problems Problem Description Start Date Status Goals Interve ntions Medication Education Disciplines: Skilled Services 03/07/2023 Active 1 goal linked to scheduled/documen mitul intervention 1 goal intervention scheduled/document ed in this visit Sepsis Disciplines: Skilled Services 03/07/2023 Active 1 goal linked to scheduled/documen mitul intervention 1 goal intervention scheduled/document ed in this visit PT Referral Disciplines: Skilled Services 03/07/2023 Resolved on 03/12/2023 1 goal linked to scheduled/documen mitul intervention 1 goal intervention scheduled/document ed in this visit Physician Specific Parameters Disciplines: Skilled Services 03/07/2023 Active 1 goal linked to scheduled/documen mitul intervention 1 goal intervention scheduled/document ed in this visit Risk for Falls Disciplines: Skilled Services 03/07/2023 Active 1 goal linked to scheduled/documen mitul intervention 1 goal intervention scheduled/document ed in this visit Pain Disciplines: Skilled Services 03/07/2023 Active 1 goal linked to scheduled/documen mitul intervention 1 goal intervention scheduled/document ed in this visit Discharge Disciplines: Skilled Services 03/07/2023 Active 1 goal linked to scheduled/documen mitul intervention 1 goal intervention scheduled/document ed in this visit PT Impaired muscle performance and/or ROM Disciplines: PT 03/12/2023 Resolved on 03/12/2023 1 goal linked to scheduled/documen mitul intervention 1 goal intervention scheduled/document ed in this visit PT Impaired gait Disciplines: PT 03/12/2023 Resolved on 03/12/2023 1 goal linked to scheduled/documen mitul intervention 1 goal intervention scheduled/document ed in this visit PT Learning Assessment Disciplines: PT 03/12/2023 Resolved on 03/12/2023 1 goal linked to scheduled/documen mitul intervention 1 goal intervention scheduled/document ed in this visit Goals Goal Associated Problem Outcome Goal Met? Visit Notes Patient/caregiver will demonstrate ability to obtain, store, identify and administer ordered medications, keep accurate medication list in home, and adhere to medication schedule Description: Patient/caregiver will demonstrate ability to obtain, store, identify and administer ordered medications, keep accurate medication list in home, and adhere to medication schedule by 05/05/23. Medication Education No Patient/caregiver will be able to identify and report symptoms of sepsis Description: Patient/caregiver will be able to identify signs/symptoms of sepsis infection and will verbalize actions to take if suspected by 05/05/23. Sepsis No Patient will be referred to additional discipline as needed PT Referral Completed Yes Goal Met Patient to maintain parameters within physician-specified ranges throughout certification period Physician Specific Parameters No Manage Risk for falls Description: Patient/caregiver will verbalize knowledge of individualized fall prevention strategies by 05/05/23. Risk for Falls No Manage Pain Description: Patient/caregiver will verbalize knowledge and understanding of appropriate techniques to control pain, including non-pharmacological techniques. Patient will verbalize or demonstrate an acceptable level of pain as evidenced by a pain score of 4/10 and improvement in ability to perform activities of daily living to be achieved by 05/05/23. Pain No Manage discharge planning Description: Patient/caregiver will verbalize understanding of ongoing discharge plan provided related to disease management, arrangements for outpatient and/or community services, obtaining medications, supplies, and DME, as needed throughout certification period. Discharge No Improved Muscle Performance and/or ROM Description: Short term goal: Patient will demonstrate improved muscle performance to meet functional goals as evidenced by demonstrating understanding of HEP consisting of at least 4 exercises, to be achieved by 03/12/23. PT Impaired muscle performance and/or ROM Completed Yes Goal Met Improved Stair Climbing Description: STG:: Patient will demonstrate improved stair negotiation as evidenced by ascend/descend 4 steps with railing with supervision, to be achieved by 03/12/23. PT Impaired gait Completed Yes Goal Met Demonstrate understanding of education Description: Patient and/or caregiver will understand educational instruction to be achieved by 03/12/23. PT Learning Assessment Completed Yes Goal Met Interventions Intervention Associated Problem/Goal Status Variance Visit Notes Medication Education Description: Evaluate/instruct patient/caregiver on obtaining, storing, identifying and administering ordered medications as well as keeping accurate medication list in the home and adhereing to medication schedule Problem:Medication Education Goal:Patient/caregiv er will demonstrate ability to obtain, store, identify and administer ordered medications, keep accurate medication list in home, and adhere to medication schedule Completed Patient instructed on adhering to medication schedule. Risk of Sepsis Description: Patient is at risk for sepsis. Monitor closely for s/s of sepsis. Problem:Sepsis Goal:Patient/caregiv er will be able to identify and report symptoms of sepsis Completed PT evaluation and treatment Description: Evaluate and treat for the assessment of functional deficits and establishment of appropriate interventions and education, including recommendations for functional mobility training, balance training for fall reduction, and strengthening. Problem:PT Referral Goal:Patient will be referred to additional discipline as needed Completed SPO2 Description: Stop activity if pulse ox is <92% at rest. Problem:Physician Specific Parameters Goal:Patient to maintain parameters within physician-specified ranges throughout certification period Completed Instruct on individual fall risk factors and strategies to prevent falls and injuries caused by falls. Problem:Risk for Falls Goal:Manage Risk for falls Completed Interventions implemented and instructions provided this visit to reduce risk of falls Instruct on pain and instruct on strategies to control pain Problem:Pain Goal:Manage Pain Completed patient instructed on techniques to control pain including Pharmacological measures and Non-Pharmacological measures; rest, positioning/elevation, mobility/therapeutic exercise, use of DME/assistive devices and use of thermal modalities, apply ice to affected area. Instruct on final discharge plan and deliver discharge instructions Problem:Discharge Goal:Manage discharge planning Completed Delivered Discharge plan: Discharge plan discussed with patient for plan for transition to: live independently at home without ongoing services Physical Therapy Therapeutic Exercises Problem:PT Impaired muscle performance and/or ROM Goal:Improved Muscle Performance and/or ROM Completed patient instructed on strengthening exercises including at countertop with verbal, visual and written cues for sequencing and to maintain upright posture. patient instructed to perform home exercise program three times a day which included standing: hip flexion, hip extension, hip abduction, heel/toe raises and mini squats. Physical Therapy Stair Training Problem:PT Impaired gait Goal:Improved Stair Climbing Completed Stair training and instruction to patient on safe stair climbing, ascend/descend 4 steps, with railing with supervision and verbal cues for sequencing. Instruct and educate on knowledge deficits Problem:PT Learning Assessment Goal:Demonstrate understanding of education Completed patient verbalize and/or demonstrate understanding of physical therapy education including diabetic care management, pain management, oxygen safety, fall prevention strategies, home safety, functional activity and home exercise program. Education methods include: verbal cues, tactile cues, written instructions, visual cues and teach back. [facility] Visit Details Visit Type -SN ROUTINE Discipline -Alf Problems Problem Description Start Date Status Goals Interve ntions Medication Education Disciplines: Skilled Services 03/07/2023 Active 1 goal linked to scheduled/docume nted intervention 1 goal intervention scheduled/documen mitul in this visit Mental Health Disciplines: Skilled Services 03/07/2023 Active 1 goal linked to scheduled/docume nted intervention 1 goal intervention scheduled/documen mitul in this visit Sepsis Disciplines: Skilled Services 03/07/2023 Active 1 goal linked to scheduled/docume nted intervention 2 goal interventions scheduled/documen mitul in this visit Physician Specific Parameters Disciplines: Skilled Services 03/07/2023 Active 1 goal linked to scheduled/docume nted intervention 1 goal intervention scheduled/documen mitul in this visit Pain Disciplines: Skilled Services 03/07/2023 Active 1 goal linked to scheduled/docume nted intervention 1 goal intervention scheduled/documen mitul in this visit Diabetic Foot Care Disciplines: Skilled Services 03/07/2023 Active 1 goal linked to scheduled/docume nted intervention 1 goal intervention scheduled/documen mitul in this visit Nutrition/Hydration Disciplines: Skilled Services 03/07/2023 Active 1 goal linked to scheduled/docume nted intervention 1 goal intervention scheduled/documen mitul in this visit High Risk Medications Disciplines: Skilled Services 03/07/2023 Active 1 goal linked to scheduled/docume nted intervention 2 goal interventions scheduled/documen mitul in this visit SN Integumentary/Wound s Disciplines: SN 03/07/2023 Active 1 goal linked to scheduled/docume nted intervention 1 goal intervention scheduled/documen mitul in this visit SN Cardiovascular Condition Disciplines: SN 03/07/2023 Active 1 goal linked to scheduled/docume nted intervention 1 goal intervention scheduled/documen mitul in this visit SN Learning Assessment Disciplines: SN 03/07/2023 Active 1 goal linked to scheduled/docume nted intervention 1 goal intervention scheduled/documen mitul in this visit SN Genitourinary disease process Disciplines: SN 03/07/2023 Resolved on 03/14/2023 1 goal linked to scheduled/docume nted intervention Goals Goal Associated Problem Outcome Goal Met? Visit Notes Patient/caregiver will demonstrate ability to obtain, store, identify and administer ordered medications, keep accurate medication list in home, and adhere to medication schedule Description: Patient/caregiver will demonstrate ability to obtain, store, identify and administer ordered medications, keep accurate medication list in home, and adhere to medication schedule by 05/05/23. Medication Education No Improved management of mental health condition(s) Description: Patient/caregiver will teach back mental health symptom identification and management techniques by 05/05/23. Mental Health No Patient/caregiver will be able to identify and report symptoms of sepsis Description: Patient/caregiver will be able to identify signs/symptoms of sepsis infection and will verbalize actions to take if suspected by 05/05/23. Sepsis No Patient to maintain parameters within physician-specified ranges throughout certification period Physician Specific Parameters No Manage Pain Description: Patient/caregiver will verbalize knowledge and understanding of appropriate techniques to control pain, including non-pharmacological techniques. Patient will verbalize or demonstrate an acceptable level of pain as evidenced by a pain score of 4/10 and improvement in ability to perform activities of daily living to be achieved by 05/05/23. Pain No Manage diabetic foot care Description: Patient/caregiver will demonstrate basic understanding of and compliance with diabetic self-care management as evidenced by verbalizing purpose of daily foot care and assessment by 05/05/23. Diabetic Foot Care No Manage Nutrition/Hydration Description: Patient/caregiver will verbalize/demonstrate knowledge of prescribed diet and/or healthy nutrition to be achieved by 05/05/23. Nutrition/Hydration No Patient/caregiver will teach back high risk medication side effect and precaution education High Risk Medications No Patient/Caregiver will have improved healing and be free of signs and symptoms of complications Description: Patient/caregiver will verbalize management strategies to promote wound healing & prevent complications as evidenced by improved healing & no complications by 05/05/23. SN Integumentary/Wounds No Improved management of cardiovascular disease Description: Improve patient/caregiver management of cardiac disease as evidenced by patient/caregiver ability to teach back cardiac management strategies by 05/05/23. SN Cardiovascular Condition No Demonstrate understanding of education Description: Patient and/or caregiver will verbalize understanding of educational instruction provided throughout certification period. SN Learning Assessment No Patient/Caregiver will verbalize understanding and demonstrate improved management of genitourinary disease/condition. Description: Patient/Caregiver will state understanding of genitourinary disease/condition and be able to teach back management strategies by 05/05/23. SN Genitourinary disease process Completed Yes Interventions Intervention Associated Problem/Goal Status Variance Visit Notes Medication Education Description: Evaluate/instruct patient/caregiver on obtaining, storing, identifying and administering ordered medications as well as keeping accurate medication list in the home and adhereing to medication schedule Problem:Medication Education Goal:Patient/caregive r will demonstrate ability to obtain, store, identify and administer ordered medications, keep accurate medication list in home, and adhere to medication schedule Completed Patient instructed on adhering to medication schedule. Instruct on coping strategies Problem:Mental Health Goal:Improved management of mental health condition(s) Completed Relaxation, support of family Sepsis aftercare Description: Patient recenty treated for sepsis related to cellulitis. Educate on signs/symptoms of recurrent infection and actions to take if suspected. Problem:Sepsis Goal:Patient/caregive r will be able to identify and report symptoms of sepsis Completed Patient instructed on signs/symptoms of recurrent infection including fever >101. Risk of Sepsis Description: Patient is at risk for sepsis. Monitor closely for s/s of sepsis. Problem:Sepsis Goal:Patient/caregive r will be able to identify and report symptoms of sepsis Completed SPO2 Description: Stop activity if pulse ox is <92% at rest. Problem:Physician Specific Parameters Goal:Patient to maintain parameters within physician-specified ranges throughout certification period Completed Instruct on pain and instruct on strategies to control pain Problem:Pain Goal:Manage Pain Completed patient instructed on techniques to control pain including Pharmacological measures and Non-Pharmacological measures; positioning/elevation and breathing/relaxation. Monitor lower extremities for skin lesions and educate on proper foot care Problem:Diabetic Foot Care Goal:Manage diabetic foot care Completed patient instructed on diabetic foot care including daily skin inspection. Define patient s appetite/hydration status and implement strategies to improve compliance with prescribed diet and/or healthy nutrition. Problem:Nutrition/Hyd ration Goal:Manage Nutrition/Hydration Completed reinforced patient on implementing strategies to comply with prescribed diet, healthy nutrition and adequate hydration Hypoglycemic (including insulin)- educated on high risk medication Problem:High Risk Medications Goal:Patient/caregive r will teach back high risk medication side effect and precaution education Completed patient educated on taking medication(s) as prescribed by provider. Do not stop medication or skip/alter doses without speaking with your provider. Discuss medication effectiveness or side effect concerns with your provider and home care team. Check blood sugars and keep log as ordered by provider. Monitor for side effects of hypoglycemia such as increased weakness or shaking, moist skin, sweating, fast heartbeat, dizziness, sudden hunger, confusion, pale skin, numbness in mouth or tongue, irritability, nervousness, unsteadiness, nightmares, bad dreams, and restless sleep. Checking your blood sugar routinely and eating a consistent diabetic diet can help regulate blood sugars and reduce side effects. Anticoagulant- educated on high risk medication Problem:High Risk Medications Goal:Patient/caregive r will teach back high risk medication side effect and precaution education Completed patient educated on anticoagulant medication eliquis Take your medication as instructed and at the same time each day. Do not stop medication or alter doses without speaking with your provider. Discuss medication effectiveness or side effect concerns with your provider and home care team. Discuss all medications you are taking, even iifq-grg-xnsicyl medicines, with your provider and pharmacist since many drugs can interact with anticoagulants. Tell anyone providing medical or dental care that you are taking an anticoagulant. DO NOT STOP your medication even for a minor procedure like dental work without first checking with the provider. If you forget to take a dose, DO NOT take a double dose. Take the missed dose as soon as possible on the same day. DO NOT take a double dose the next day to make up for the missed dose. Watch for signs of abnormal or excessive bleeding and bruising (refer to Bleeding Precautions education). Call your health care provider right away if you suspect something is wrong. Wound Care: Perform wound care (1) Description: Wound Care Order: Wound location: Pelvis Anterior;Medial;Lower Wound type (etiology): Cellulitis Order: Cleanse mechanically debride wound daily with soap and water, pat dry. Place Aquacel AG and cover with dry dressing. Frequency: Daily prn Wound care to be completed by caregiver except for scheduled SN wound care visits. Measure wound/incision at least weekly. Okay to substitute comparable products from home care formulary. Problem:SN Integumentary/Wounds Goal:Patient/Caregive r will have improved healing and be free of signs and symptoms of complications Completed Completed by SN. Patient did tolerate well. Instruct on cardiovascular disease process and management of condition Description: Patient has following cardiac diagnosis(es): Hypertension. Problem:SN Cardiovascular Condition Goal:Improved management of cardiovascular disease Completed patient instructed on self monitoring & symptom reporting. Instruct and educate on knowledge deficits Problem:SN Learning Assessment Goal:Demonstrate understanding of education Completed patient verbalize and/or demonstrate understanding of nursing education completed today. Education methods include: verbal cues. Further education required to improve knowledge and compliance with cardiac disease management, depression/anxiety care management, diabetic care management, fall prevention/home safety strategies, hematological care management, incision/wound care management, medication management, nutrition and pain management. documented in this encounter [facility] home Plan of care note* Visit Details Visit Type -SN ROUTINE Discipline -Alf Problems Problem Description Start Date Status Goals Interve ntions Medication Education Disciplines: Skilled Services 03/07/2023 Active 1 goal linked to scheduled/documen mitul intervention 1 goal intervention scheduled/document ed in this visit Mental Health Disciplines: Skilled Services 03/07/2023 Active 1 goal linked to scheduled/documen mitul intervention Sepsis Disciplines: Skilled Services 03/07/2023 Active 1 goal linked to scheduled/documen mitul intervention 2 goal interventions scheduled/document ed in this visit Physician Specific Parameters Disciplines: Skilled Services 03/07/2023 Active 1 goal linked to scheduled/documen mitul intervention 1 goal intervention scheduled/document ed in this visit Pain Disciplines: Skilled Services 03/07/2023 Active 1 goal linked to scheduled/documen mitul intervention 1 goal intervention scheduled/document ed in this visit Diabetic Foot Care Disciplines: Skilled Services 03/07/2023 Active 1 goal linked to scheduled/documen mitul intervention 1 goal intervention scheduled/document ed in this visit Nutrition/Hydration Disciplines: Skilled Services 03/07/2023 Active 1 goal linked to scheduled/documen mitul intervention 1 goal intervention scheduled/document ed in this visit High Risk Medications Disciplines: Skilled Services 03/07/2023 Active 1 goal linked to scheduled/documen mitul intervention 2 goal interventions scheduled/document ed in this visit SN Integumentary/Wound s Disciplines: SN 03/07/2023 Active 1 goal linked to scheduled/documen mitul intervention 1 goal intervention scheduled/document ed in this visit SN Diabetes Disciplines: SN 03/07/2023 Active 1 goal linked to scheduled/documen mitul intervention SN Cardiovascular Condition Disciplines: SN 03/07/2023 Active 1 goal linked to scheduled/documen mitul intervention 1 goal intervention scheduled/document ed in this visit SN Learning Assessment Disciplines: SN 03/07/2023 Active 1 goal linked to scheduled/documen mitul intervention 1 goal intervention scheduled/document ed in this visit Goals Goal Associated Problem Outcome Goal Met? Visit Notes Patient/caregiver will demonstrate ability to obtain, store, identify and administer ordered medications, keep accurate medication list in home, and adhere to medication schedule Description: Patient/caregiver will demonstrate ability to obtain, store, identify and administer ordered medications, keep accurate medication list in home, and adhere to medication schedule by 05/05/23. Medication Education In Progress No Improved management of mental health condition(s) Description: Patient/caregiver will teach back mental health symptom identification and management techniques by 05/05/23. Mental Health In Progress No Patient/caregiver will be able to identify and report symptoms of sepsis Description: Patient/caregiver will be able to identify signs/symptoms of sepsis infection and will verbalize actions to take if suspected by 05/05/23. Sepsis In Progress No Patient to maintain parameters within physician-specified ranges throughout certification period Physician Specific Parameters In Progress No Manage Pain Description: Patient/caregiver will verbalize knowledge and understanding of appropriate techniques to control pain, including non-pharmacological techniques. Patient will verbalize or demonstrate an acceptable level of pain as evidenced by a pain score of 4/10 and improvement in ability to perform activities of daily living to be achieved by 05/05/23. Pain In Progress No Manage diabetic foot care Description: Patient/caregiver will demonstrate basic understanding of and compliance with diabetic self-care management as evidenced by verbalizing purpose of daily foot care and assessment by 05/05/23. Diabetic Foot Care In Progress No Manage Nutrition/Hydration Description: Patient/caregiver will verbalize/demonstrate knowledge of prescribed diet and/or healthy nutrition to be achieved by 05/05/23. Nutrition/Hydration In Progress No Patient/caregiver will teach back high risk medication side effect and precaution education High Risk Medications In Progress No Patient/Caregiver will have improved healing and be free of signs and symptoms of complications Description: Patient/caregiver will verbalize management strategies to promote wound healing & prevent complications as evidenced by improved healing & no complications by 05/05/23. SN Integumentary/Wounds In Progress No Improved management of diabetes Description: Improve diabetic management as evidenced by patient/caregiver able to teach back diabetic management strategies by 05/05/23. SN Diabetes In Progress No Improved management of cardiovascular disease Description: Improve patient/caregiver management of cardiac disease as evidenced by patient/caregiver ability to teach back cardiac management strategies by 05/05/23. SN Cardiovascular Condition In Progress No Demonstrate understanding of education Description: Patient and/or caregiver will verbalize understanding of educational instruction provided throughout certification period. SN Learning Assessment In Progress No Interventions Intervention Associated Problem/Goal Status Variance Visit Notes Medication Education Description: Evaluate/instruct patient/caregiver on obtaining, storing, identifying and administering ordered medications as well as keeping accurate medication list in the home and adhereing to medication schedule Problem:Medication Education Goal:Patient/caregiver will demonstrate ability to obtain, store, identify and administer ordered medications, keep accurate medication list in home, and adhere to medication schedule Completed Patient instructed on adhering to medication schedule. Sepsis aftercare Description: Patient recenty treated for sepsis related to cellulitis. Educate on signs/symptoms of recurrent infection and actions to take if suspected. Problem:Sepsis Goal:Patient/caregiver will be able to identify and report symptoms of sepsis Completed Patient instructed on signs/symptoms of recurrent infection including fever >101 and new or worsening onset of pain. Risk of Sepsis Description: Patient is at risk for sepsis. Monitor closely for s/s of sepsis. Problem:Sepsis Goal:Patient/caregiver will be able to identify and report symptoms of sepsis Completed SPO2 Description: Stop activity if pulse ox is <92% at rest. Problem:Physician Specific Parameters Goal:Patient to maintain parameters within physician-specified ranges throughout certification period Completed Instruct on pain and instruct on strategies to control pain Problem:Pain Goal:Manage Pain Completed patient instructed on techniques to control pain including Non-Pharmacological measures; positioning/elevatio n. Monitor lower extremities for skin lesions and educate on proper foot care Problem:Diabetic Foot Care Goal:Manage diabetic foot care Completed patient instructed on diabetic foot care including daily skin inspection. Define patient s appetite/hydration status and implement strategies to improve compliance with prescribed diet and/or healthy nutrition. Problem:Nutrition/Hydr ation Goal:Manage Nutrition/Hydration Completed reinforced patient on implementing strategies to comply with prescribed diet, healthy nutrition and adequate hydration Hypoglycemic (including insulin)- educated on high risk medication Problem:High Risk Medications Goal:Patient/caregiver will teach back high risk medication side effect and precaution education Completed patient educated on taking medication(s) as prescribed by provider. Do not stop medication or skip/alter doses without speaking with your provider. Discuss medication effectiveness or side effect concerns with your provider and home care team. Check blood sugars and keep log as ordered by provider. Monitor for side effects of hypoglycemia such as increased weakness or shaking, moist skin, sweating, fast heartbeat, dizziness, sudden hunger, confusion, pale skin, numbness in mouth or tongue, irritability, nervousness, unsteadiness, nightmares, bad dreams, and restless sleep. Checking your blood sugar routinely and eating a consistent diabetic diet can help regulate blood sugars and reduce side effects. Anticoagulant- educated on high risk medication Problem:High Risk Medications Goal:Patient/caregiver will teach back high risk medication side effect and precaution education Completed patient educated on anticoagulant medication eliquis Take your medication as instructed and at the same time each day. Do not stop medication or alter doses without speaking with your provider. Discuss medication effectiveness or side effect concerns with your provider and home care team. Discuss all medications you are taking, even [id number] medicines, with your provider and pharmacist since many drugs can interact with anticoagulants. Tell anyone providing medical or dental care that you are taking an anticoagulant. DO NOT STOP your medication even for a minor procedure like dental work without first checking with the provider. If you forget to take a dose, DO NOT take a double dose. Take the missed dose as soon as possible on the same day. DO NOT take a double dose the next day to make up for the missed dose. Watch for signs of abnormal or excessive bleeding and bruising (refer to Bleeding Precautions education). Call your health care provider right away if you suspect something is wrong. Wound Care: Perform wound care (1) Description: Wound Care Order: Wound location: Pelvis Anterior;Medial;Lower Wound type (etiology): Cellulitis Order: Cleanse mechanically debride wound daily with soap and water, pat dry. Place Aquacel AG and cover with dry dressing. Frequency: Daily prn Wound care to be completed by caregiver except for scheduled SN wound care visits. Measure wound/incision at least weekly. Okay to substitute comparable products from home care formulary. Problem:SN Integumentary/Wounds Goal:Patient/Caregiver will have improved healing and be free of signs and symptoms of complications Completed Completed by SN. Patient did tolerate well. Instruct on cardiovascular disease process and management of condition Description: Patient has following cardiac diagnosis(es): Hypertension. Problem:SN Cardiovascular Condition Goal:Improved management of cardiovascular disease Completed patient instructed on self monitoring & symptom reporting. Instruct and educate on knowledge deficits Problem:SN Learning Assessment Goal:Demonstrate understanding of education Completed patient verbalize and/or demonstrate understanding of nursing education completed today. Education methods include: verbal cues. Further education required to improve knowledge and compliance with diabetic care management, fall prevention/home safety strategies, incision/wound care management, medication management, nutrition, oxygen safety, pain management and pulmonary disease management. documented in this encounter [facility]'s home Plan of care note* Visit Details Visit Type -SN ROUTINE Discipline -Alf Problems Problem Description Start Date Status Goals Interve ntions Medication Education Disciplines: Skilled Services 03/07/2023 Active 1 goal linked to scheduled/docume nted intervention 1 goal intervention scheduled/documen mitul in this visit Sepsis Disciplines: Skilled Services 03/07/2023 Active 1 goal linked to scheduled/docume nted intervention 2 goal interventions scheduled/documen mitul in this visit Physician Specific Parameters Disciplines: Skilled Services 03/07/2023 Active 1 goal linked to scheduled/docume nted intervention 1 goal intervention scheduled/documen mitul in this visit Pain Disciplines: Skilled Services 03/07/2023 Active 1 goal linked to scheduled/docume nted intervention 1 goal intervention scheduled/documen mitul in this visit Diabetic Foot Care Disciplines: Skilled Services 03/07/2023 Active 1 goal linked to scheduled/docume nted intervention 1 goal intervention scheduled/documen mitul in this visit High Risk Medications Disciplines: Skilled Services 03/07/2023 Resolved on 04/02/2023 1 goal linked to scheduled/docume nted intervention 2 goal interventions scheduled/documen mitul in this visit SN Integumentary/Wound s Disciplines: 03/07/2023 Active 1 goal linked to scheduled/docume nted intervention 1 goal intervention scheduled/documen mitul in this visit SN Diabetes Disciplines: 03/07/2023 Active 1 goal linked to scheduled/docume nted intervention SN Cardiovascular Condition Disciplines: 03/07/2023 Resolved on 04/02/2023 1 goal linked to scheduled/docume nted intervention 1 goal intervention scheduled/documen mitul in this visit SN Learning Assessment Disciplines: 03/07/2023 Active 1 goal linked to scheduled/docume nted intervention 1 goal intervention scheduled/documen mitul in this visit Goals Goal Associated Problem Outcome Goal Met? Visit Notes Patient/caregiver will demonstrate ability to obtain, store, identify and administer ordered medications, keep accurate medication list in home, and adhere to medication schedule Description: Patient/caregiver will demonstrate ability to obtain, store, identify and administer ordered medications, keep accurate medication list in home, and adhere to medication schedule by 05/05/23. Medication Education Completed Yes Patient/caregiver will be able to identify and report symptoms of sepsis Description: Patient/caregiver will be able to identify signs/symptoms of sepsis infection and will verbalize actions to take if suspected by 05/05/23. Sepsis In Progress No Patient to maintain parameters within physician-specified ranges throughout certification period Physician Specific Parameters In Progress No Manage Pain Description: Patient/caregiver will verbalize knowledge and understanding of appropriate techniques to control pain, including non-pharmacological techniques. Patient will verbalize or demonstrate an acceptable level of pain as evidenced by a pain score of 4/10 and improvement in ability to perform activities of daily living to be achieved by 05/05/23. Pain In Progress No Manage diabetic foot care Description: Patient/caregiver will demonstrate basic understanding of and compliance with diabetic self-care management as evidenced by verbalizing purpose of daily foot care and assessment by 05/05/23. Diabetic Foot Care In Progress No Patient/caregiver will teach back high risk medication side effect and precaution education High Risk Medications Completed Yes Patient/Caregiver will have improved healing and be free of signs and symptoms of complications Description: Patient/caregiver will verbalize management strategies to promote wound healing & prevent complications as evidenced by improved healing & no complications by 05/05/23. SN Integumentary/Wounds In Progress No Improved management of diabetes Description: Improve diabetic management as evidenced by patient/caregiver able to teach back diabetic management strategies by 05/05/23. SN Diabetes In Progress No Improved management of cardiovascular disease Description: Improve patient/caregiver management of cardiac disease as evidenced by patient/caregiver ability to teach back cardiac management strategies by 05/05/23. SN Cardiovascular Condition Completed Yes Demonstrate understanding of education Description: Patient and/or caregiver will verbalize understanding of educational instruction provided throughout certification period. SN Learning Assessment In Progress No Interventions Intervention Associated Problem/Goal Status Variance Visit Notes Medication Education Description: Evaluate/instruct patient/caregiver on obtaining, storing, identifying and administering ordered medications as well as keeping accurate medication list in the home and adhereing to medication schedule Problem:Medication Education Goal:Patient/caregiver will demonstrate ability to obtain, store, identify and administer ordered medications, keep accurate medication list in home, and adhere to medication schedule Completed Patient instructed on adhering to medication schedule. Sepsis aftercare Description: Patient recenty treated for sepsis related to cellulitis. Educate on signs/symptoms of recurrent infection and actions to take if suspected. Problem:Sepsis Goal:Patient/caregiver will be able to identify and report symptoms of sepsis Completed Patient instructed on signs/symptoms of recurrent infection including fever >101, new or worsening onset of pain and decreased urine output. Risk of Sepsis Description: Patient is at risk for sepsis. Monitor closely for s/s of sepsis. Problem:Sepsis Goal:Patient/caregiver will be able to identify and report symptoms of sepsis Completed SPO2 Description: Stop activity if pulse ox is <92% at rest. Problem:Physician Specific Parameters Goal:Patient to maintain parameters within physician-specified ranges throughout certification period Completed Instruct on pain and instruct on strategies to control pain Problem:Pain Goal:Manage Pain Completed patient instructed on techniques to control pain including Non-Pharmacological measures; positioning/elevatio n. Monitor lower extremities for skin lesions and educate on proper foot care Problem:Diabetic Foot Care Goal:Manage diabetic foot care Completed patient instructed on diabetic foot care including daily skin inspection and wearing proper footwear/avoiding going barefoot. Hypoglycemic (including insulin)- educated on high risk medication Problem:High Risk Medications Goal:Patient/caregiver will teach back high risk medication side effect and precaution education Completed patient educated on taking medication(s) as prescribed by provider. Do not stop medication or skip/alter doses without speaking with your provider. Discuss medication effectiveness or side effect concerns with your provider and home care team. Check blood sugars and keep log as ordered by provider. Monitor for side effects of hypoglycemia such as increased weakness or shaking, moist skin, sweating, fast heartbeat, dizziness, sudden hunger, confusion, pale skin, numbness in mouth or tongue, irritability, nervousness, unsteadiness, nightmares, bad dreams, and restless sleep. Checking your blood sugar routinely and eating a consistent diabetic diet can help regulate blood sugars and reduce side effects. Anticoagulant- educated on high risk medication Problem:High Risk Medications Goal:Patient/caregiver will teach back high risk medication side effect and precaution education Completed patient educated on anticoagulant medication eliquis Take your medication as instructed and at the same time each day. Do not stop medication or alter doses without speaking with your provider. Discuss medication effectiveness or side effect concerns with your provider and home care team. Discuss all medications you are taking, even asil-eql-slvadxw medicines, with your provider and pharmacist since many drugs can interact with anticoagulants. Tell anyone providing medical or dental care that you are taking an anticoagulant. DO NOT STOP your medication even for a minor procedure like dental work without first checking with the provider. If you forget to take a dose, DO NOT take a double dose. Take the missed dose as soon as possible on the same day. DO NOT take a double dose the next day to make up for the missed dose. Watch for signs of abnormal or excessive bleeding and bruising (refer to Bleeding Precautions education). Call your health care provider right away if you suspect something is wrong. Wound Care: Perform wound care (1) Description: Wound Care Order: Wound location: Pelvis Anterior;Medial;Lower Wound type (etiology): Cellulitis Order: Cleanse mechanically debride wound daily with soap and water, pat dry. Place Aquacel AG and cover with dry dressing. Frequency: Daily prn Wound care to be completed by caregiver except for scheduled SN wound care visits. Measure wound/incision at least weekly. Okay to substitute comparable products from home care formulary. Problem:SN Integumentary/Wounds Goal:Patient/Caregiver will have improved healing and be free of signs and symptoms of complications Completed Completed by SN. Patient did tolerate well. Instruct on cardiovascular disease process and management of condition Description: Patient has following cardiac diagnosis(es): Hypertension. Problem:SN Cardiovascular Condition Goal:Improved management of cardiovascular disease Completed patient instructed on self monitoring & symptom reporting. Instruct and educate on knowledge deficits Problem:SN Learning Assessment Goal:Demonstrate understanding of education Completed patient verbalize and/or demonstrate understanding of nursing education completed today. Education methods include: verbal cues. Further education required to improve knowledge and compliance with cardiac disease management, diabetic care management, fall prevention/home safety strategies, hematological care management, incision/wound care management, medication management, pain management and pulmonary disease management. documented in this encounter [facility]'s home Plan of care note* Visit Details Visit Type -SN ROUTINE Discipline -Alf Problems Problem Description Start Date Status Goals Interve ntions Sepsis Disciplines: Skilled Services 03/07/2023 Active 1 goal linked to scheduled/document ed intervention 1 goal intervention scheduled/document ed in this visit Physician Specific Parameters Disciplines: Skilled Services 03/07/2023 Active 1 goal linked to scheduled/document ed intervention 1 goal intervention scheduled/document ed in this visit Pain Disciplines: Skilled Services 03/07/2023 Active 1 goal linked to scheduled/document ed intervention 1 goal intervention scheduled/document ed in this visit Diabetic Foot Care Disciplines: Skilled Services 03/07/2023 Active 1 goal linked to scheduled/document ed intervention 1 goal intervention scheduled/document ed in this visit SN Integumentary/ Wounds Disciplines: SN 03/07/2023 Active 1 goal linked to scheduled/document ed intervention 1 goal intervention scheduled/document ed in this visit SN Diabetes Disciplines: SN 03/07/2023 Resolved on 04/09/2023 1 goal linked to scheduled/document ed intervention SN Learning Assessment Disciplines: SN 03/07/2023 Active 1 goal linked to scheduled/document ed intervention 1 goal intervention scheduled/document ed in this visit Goals Goal Associated Problem Outcome Goal Met? Visit Notes Patient/caregiver will be able to identify and report symptoms of sepsis Description: Patient/caregiver will be able to identify signs/symptoms of sepsis infection and will verbalize actions to take if suspected by 05/05/23. Sepsis In Progress No Patient to maintain parameters within physician-specified ranges throughout certification period Physician Specific Parameters In Progress No Manage Pain Description: Patient/caregiver will verbalize knowledge and understanding of appropriate techniques to control pain, including non-pharmacological techniques. Patient will verbalize or demonstrate an acceptable level of pain as evidenced by a pain score of 4/10 and improvement in ability to perform activities of daily living to be achieved by 05/05/23. Pain In Progress No Manage diabetic foot care Description: Patient/caregiver will demonstrate basic understanding of and compliance with diabetic self-care management as evidenced by verbalizing purpose of daily foot care and assessment by 05/05/23. Diabetic Foot Care In Progress No Patient/Caregiver will have improved healing and be free of signs and symptoms of complications Description: Patient/caregiver will verbalize management strategies to promote wound healing & prevent complications as evidenced by improved healing & no complications by 05/05/23. SN Integumentary/Wounds In Progress No Improved management of diabetes Description: Improve diabetic management as evidenced by patient/caregiver able to teach back diabetic management strategies by 05/05/23. SN Diabetes Completed Yes Demonstrate understanding of education Description: Patient and/or caregiver will verbalize understanding of educational instruction provided throughout certification period. SN Learning Assessment In Progress No Interventions Intervention Associated Problem/Goal Status Variance Visit Notes Risk of Sepsis Description: Patient is at risk for sepsis. Monitor closely for s/s of sepsis. Problem:Sepsis Goal:Patient/caregiver will be able to identify and report symptoms of sepsis Completed SPO2 Description: Stop activity if pulse ox is <92% at rest. Problem:Physician Specific Parameters Goal:Patient to maintain parameters within physician-specified ranges throughout certification period Completed Instruct on pain and instruct on strategies to control pain Problem:Pain Goal:Manage Pain Completed patient instructed on techniques to control pain including Non-Pharmacological measures; positioning/elevation . Monitor lower extremities for skin lesions and educate on proper foot care Problem:Diabetic Foot Care Goal:Manage diabetic foot care Completed patient instructed on diabetic foot care including daily skin inspection. Wound Care: Perform wound care (1) Description: Wound Care Order: Wound location: Pelvis Anterior;Medial;Lower Wound type (etiology): Cellulitis Order: Cleanse mechanically debride wound daily with soap and water, pat dry. Place Aquacel AG and cover with dry dressing. Frequency: Daily prn Wound care to be completed by caregiver except for scheduled SN wound care visits. Measure wound/incision at least weekly. Okay to substitute comparable products from home care formulary. Problem:SN Integumentary/Wounds Goal:Patient/Caregiver will have improved healing and be free of signs and symptoms of complications Completed Completed by SN. Patient did tolerate well. Instruct and educate on knowledge deficits Problem:SN Learning Assessment Goal:Demonstrate understanding of education Completed patient verbalize and/or demonstrate understanding of nursing education completed today. Education methods include: verbal cues and visual cues. Further education required to improve knowledge and compliance with diabetic care management, fall prevention/home safety strategies, incision/wound care management, medication management and oxygen safety. documented in this encounter [facility] home Plan of care note* Visit Details Visit Type -SN JIGNESH Discipline -Alf Problems Problem Description Start Date Status Goals Interve ntions Sepsis Disciplines: Skilled Services 03/07/2023 Active 1 goal linked to scheduled/document ed intervention 2 goal interventions scheduled/documente d in this visit Physician Specific Parameters Disciplines: Skilled Services 03/07/2023 Active 1 goal linked to scheduled/document ed intervention 1 goal intervention scheduled/documente d in this visit Pain Disciplines: Skilled Services 03/07/2023 Active 1 goal linked to scheduled/document ed intervention 1 goal intervention scheduled/documente d in this visit Diabetic Foot Care Disciplines: Skilled Services 03/07/2023 Active 1 goal linked to scheduled/document ed intervention 1 goal intervention scheduled/documente d in this visit Oxygen Disciplines: Skilled Services 03/07/2023 Active 1 goal linked to scheduled/document ed intervention 1 goal intervention scheduled/documente d in this visit SN Integumentary/W ounds Disciplines: SN 03/07/2023 Active 1 goal linked to scheduled/document ed intervention 1 goal intervention scheduled/documente d in this visit SN Learning Assessment Disciplines: SN 03/07/2023 Active 1 goal linked to scheduled/document ed intervention 1 goal intervention scheduled/documente d in this visit SN Heart Failure Disciplines: 04/26/2023 Active 1 goal linked to scheduled/document ed intervention 3 goal interventions scheduled/documente d in this visit Mental Health Disciplines: Skilled Services 04/26/2023 Active 1 goal linked to scheduled/document ed intervention 3 goal interventions scheduled/documente d in this visit High Risk Medications Disciplines: Skilled Services 04/26/2023 Active 1 goal linked to scheduled/document ed intervention 2 goal interventions scheduled/documente d in this visit SN COPD Disciplines: SN 04/26/2023 Active 1 goal linked to scheduled/document ed intervention 3 goal interventions scheduled/documente d in this visit Goals Goal Associated Problem Outcome Goal Met? Visit Notes Patient/caregiver will be able to identify and report symptoms of sepsis Description: Patient/caregiver will be able to identify signs/symptoms of sepsis infection and will verbalize actions to take if suspected by 05/05/23. Sepsis No Patient to maintain parameters within physician-specified ranges throughout certification period Physician Specific Parameters No Manage Pain Description: Patient/caregiver will verbalize knowledge and understanding of appropriate techniques to control pain, including non-pharmacological techniques. Patient will verbalize or demonstrate an acceptable level of pain as evidenced by a pain score of 4/10 and improvement in ability to perform activities of daily living to be achieved by 05/05/23. Pain No Manage diabetic foot care Description: Patient/caregiver will demonstrate basic understanding of and compliance with diabetic self-care management as evidenced by verbalizing purpose of daily foot care and assessment by 05/05/23. Diabetic Foot Care No Manage oxygen Description: Patient/caregiver will use oxygen safely and effectively in home by verbalizing and demonstrating oxygen safety by 05/05/23. Oxygen No Patient/Caregiver will have improved healing and be free of signs and symptoms of complications Description: Patient/caregiver will verbalize management strategies to promote wound healing & prevent complications as evidenced by improved healing & no complications by 05/05/23. SN Integumentary/Wounds No Demonstrate understanding of education Description: Patient and/or caregiver will verbalize understanding of educational instruction provided throughout certification period. SN Learning Assessment No Improved management of Heart Failure Description: Improve HF management as evidenced by stable weights, reduced edema, and less symptoms reported by patient to be achieved by 05-05-23. SN Heart Failure No Improved management of mental health condition(s) Description: Patient/caregiver will teach back mental health symptom identification and management techniques by 05-05-23. Mental Health No Patient/caregiver will teach back high risk medication side effect and precaution education High Risk Medications No Improved management of COPD Description: Improve COPD management as evidenced by decreased reports of dyspnea, medication compliance, and patient able to teach back strategies to manage condition. Goal to be achieved by 05-05-23. SN COPD No Interventions Intervention Associated Problem/Goal Status Variance Visit Notes Sepsis aftercare Description: Patient recenty treated for sepsis related to cellulitis. Educate on signs/symptoms of recurrent infection and actions to take if suspected. Problem:Sepsis Goal:Patient/caregiv er will be able to identify and report symptoms of sepsis Completed Patient instructed on signs/symptoms of recurrent infection including fever >101, hypothermia <96.8, tachycardia >90 or higher per their baseline, tachypnea >20 or higher per their baseline, increase in 02 requirements, new or worsening onset of pain, decreased urine output and new onset change in mentation status. Risk of Sepsis Description: Patient is at risk for sepsis. Monitor closely for s/s of sepsis. Problem:Sepsis Goal:Patient/caregiv er will be able to identify and report symptoms of sepsis Completed SPO2 Description: Stop activity if pulse ox is <92% at rest. Problem:Physician Specific Parameters Goal:Patient to maintain parameters within physician-specified ranges throughout certification period Completed Instruct on pain and instruct on strategies to control pain Problem:Pain Goal:Manage Pain Completed patient instructed on techniques to control pain including Pharmacological measures and Non-Pharmacological measures; rest, positioning/elevation, mobility/therapeutic exercise, distraction and breathing/relaxation. Monitor lower extremities for skin lesions and educate on proper foot care Problem:Diabetic Foot Care Goal:Manage diabetic foot care Completed patient instructed on diabetic foot care including daily skin inspection, wearing proper footwear/avoiding going barefoot, wash/dry feet thoroughly, applying moisturizer, avoiding between toes and toenail care. Instruct on fire safety and safe and effective use of oxygen in the home Problem:Oxygen Goal:Manage oxygen Completed patient instructed on: findings of safety risk assessment, causes of fires, firerisks for neighboring residences and buildings, precautions that can prevent fire-related injuries, oxygen safety as outlined in Home Care Patient Handbook and recommendations for specific safety risks identified in the home: maintenance of working smoke detectors and changing batteries, establishment of fire escape plan, telephone accessibility, safe food preparation practices while using oxygen and implementation of no-smoking policy in home, including e-cigarettes and posting of No-Smoking signs on entrance doors patient and caregiver demonstrate compliance with safety recommendations. Wound Care: Perform wound care (1) Description: Wound Care Order: Wound location: Pelvis Anterior;Medial;Lower Wound type (etiology): Cellulitis Order: Cleanse mechanically debride wound daily with soap and water, pat dry. Place Aquacel AG and cover with dry dressing. Frequency: Daily prn Wound care to be completed by caregiver except for scheduled SN wound care visits. Measure wound/incision at least weekly. Okay to substitute comparable products from home care formulary. Problem:SN Integumentary/Wounds Goal:Patient/Caregiv er will have improved healing and be free of signs and symptoms of complications Completed Completed by SN. Patient did tolerate well. Instruct and educate on knowledge deficits Problem:SN Learning Assessment Goal:Demonstrate understanding of education Completed patient verbalize and/or demonstrate understanding of nursing education completed today. Education methods include: verbal cues and visual cues. Further education required to improve knowledge and compliance with cardiac disease management, depression/anxiety care management, diabetic care management, fall prevention/home safety strategies, genitourinary care management, hematological care management, incision/wound care management, medication management, nutrition, oxygen safety, pain management and pulmonary disease management. C. Maintenance Heart Failure Description: Reinforce acute and sub-acute management education. Instruct patient/caregiver on zone sheet, living with heart failure, effect of HF on sexual relationships, stress management, emotional health and additional HF resources available as found in the HF binder. Problem:SN Heart Failure Goal:Improved management of Heart Failure Completed Reinforced acute and sub-acute management education. patient and caregiver assessed and instructed on zone sheet, living with heart failure, stress management and emotional health as found in the HF binder. B. Sub-acute Heart Failure Description: Reinforce acute HF management education. Instruct patient/caregiver on zone sheet, use of activity, exercise routine, understanding HF diagnosis and stages of heart failure as found in the HF binder. Problem:SN Heart Failure Goal:Improved management of Heart Failure Completed Reinforced acute HF management education. patient assessed and instructed on zone sheet, use of activity, exercise routine, understanding HF diagnosis and stages of heart failure as found in the HF binder. A. Acute Heart Failure Description: Instruct patient/caregiver on use of zone sheet, daily weights, diet education, fluid management, edema management, medications prescribed related to heart failure, potassium guidelines, keeping track of their condition through logging and use of PRN diuretics as found in the HF binder. Problem:SN Heart Failure Goal:Improved management of Heart Failure Completed patient assessed and instructed on use of zone sheet, daily weights, diet education, fluid management, edema management and medications prescribed related to heart failure as found in the HF binder. Patient/caregiver will teach back mental health symptom identification and management strategies Problem:Mental Health Goal:Improved management of mental health condition(s) Completed Patient instructed on the following: signs and symptoms of increased anxiety and when to report to physician, importance of medication adherence, coping skills and techniques, use of relaxation techniques, use of diversional activities, seeking support from family/friends and crisis hotline use. Instruct on depression symptoms and management Description: PHQ-2 score: 3 or above PHQ-9 Score: moderate Problem:Mental Health Goal:Improved management of mental health condition(s) Completed Patient instructed on the following: signs of depression and when to report symptoms to physician, importance of medication adherence, record symptoms to assist with ongoing monitoring, coping skills & techniques, develop awareness of stressors, verbalize feelings, the importance of activity, goal planning and schedules , the benefits of adequate nutrition and hydration and seeking support from family/friends. Instruct on coping strategies Problem:Mental Health Goal:Improved management of mental health condition(s) Completed Antibiotic- educated on high risk medication Problem:High Risk Medications Goal:Patient/caregiv er will teach back high risk medication side effect and precaution education Completed patient educated on taking medication(s) as prescribed by provider. Do not stop medication or alter doses without speaking with your provider. Discuss medication effectiveness or side effect concerns with your provider and home care team. Take the full dispensed amount even if you start feeling better, as bacteria can become resistant to antibiotic treatment if you do not finish your prescription. Common side effects are upset stomach and diarrhea. Take your antibiotics with food unless otherwise indicated to help with indigestion. Taking an [id number] probiotic or eating yogurt with live and active cultures three times a day can help prevent antibiotic-associated diarrhea. Call your provider immediately if you develop rashes or hives as this could be a delayed allergic reaction. Seek emergency treatment if you develop severe allergic reaction symptoms such as mouth or tongue swelling. Anticoagulant- educated on high risk medication Problem:High Risk Medications Goal:Patient/caregiv er will teach back high risk medication side effect and precaution education Completed patient educated on anticoagulant medication Eliquis Take your medication as instructed and at the same time each day. Do not stop medication or alter doses without speaking with your provider. Discuss medication effectiveness or side effect concerns with your provider and home care team. Discuss all medications you are taking, even [id number] medicines, with your provider and pharmacist since many drugs can interact with anticoagulants. Tell anyone providing medical or dental care that you are taking an anticoagulant. DO NOT STOP your medication even for a minor procedure like dental work without first checking with the provider. If you forget to take a dose, DO NOT take a double dose. Take the missed dose as soon as possible on the same day. DO NOT take a double dose the next day to make up for the missed dose. Watch for signs of abnormal or excessive bleeding and bruising (refer to Bleeding Precautions education). Call your health care provider right away if you suspect something is wrong. Maintenance COPD Description: Reinforce Acute and Sub-acute management education. Instruct on review zone sheet, nutrition in relation to COPD management, energy conservation, pacing activities, independence in ADLs vs what caregiver should be helping with, home exercise, additional COPD resources available like chronic care clinics as found in the COPD binder. Problem:SN COPD Goal:Improved management of COPD Completed Reinforced Acute and Sub-acute management education. patient instructed on zone sheet, nutrition in relation to COPD management and energy conservation pacing activities, [place] in ADLs vs what caregiver should be helping with and home exercise as found in the COPD binder. Sub-acute COPD Description: Reinforce Acute COPD management education. Instruct on zone sheet, methods to reduce infection risks, anxiety management including relaxation techniques, importance of sleep, stress reduction, and coping strategies for living with COPD as found in the COPD binder. Problem:SN COPD Goal:Improved management of COPD Completed Reinforced Acute COPD management education. patient instructed on zone sheet, methods to reduce infection risks and anxiety management including: relaxation techniques, importance of sleep and stress reduction as found in the COPD binder. Acute COPD Description: Instruct on defintion of COPD, signs and symptoms of COPD exacerbation, use of zone sheet, use of MDIs, difference between rescue vs maintenance inhalers, use of nebulizer, smoking cessation, breathing management including pursed lip breathing, diaphragmatic breathing, positioning to reduce SOB, controlled coughing, use of incentive spirometer, and use of acapela as found in the COPD binder. Problem:SN COPD Goal:Improved management of COPD Completed patient instructed on defintion of COPD, signs and symptoms of COPD exacerbation, use of zone sheet and breathing management: pursed lip breathing, diaphragmatic breathing, positioning to reduce SOB and controlled coughing as found in the COPD binder. [facility] Visit Details Visit Type -PT EVAL Discipline -Physical Therapy Problems Problem Description Start Date Status Goals Interve ntions Sepsis Disciplines: Skilled Services 03/07/2023 Active 1 goal linked to scheduled/document ed intervention 1 goal intervention scheduled/document ed in this visit Physician Specific Parameters Disciplines: Skilled Services 03/07/2023 Active 1 goal linked to scheduled/document ed intervention 1 goal intervention scheduled/document ed in this visit Pain Disciplines: Skilled Services 03/07/2023 Active 1 goal linked to scheduled/document ed intervention 1 goal intervention scheduled/document ed in this visit Diabetic Foot Care Disciplines: Skilled Services 03/07/2023 Active 1 goal linked to scheduled/document ed intervention 1 goal intervention scheduled/document ed in this visit Oxygen Disciplines: Skilled Services 03/07/2023 Active 1 goal linked to scheduled/document ed intervention 1 goal intervention scheduled/document ed in this visit Discharge Disciplines: Skilled Services 03/07/2023 Active 1 goal linked to scheduled/document ed intervention 1 goal intervention scheduled/document ed in this visit PT Impaired Aerobic Capacity Disciplines: PT 04/28/2023 Resolved on 04/28/2023 1 goal linked to scheduled/document ed intervention 1 goal intervention scheduled/document ed in this visit PT Impaired muscle performance and/or ROM Disciplines: PT 04/28/2023 Resolved on 04/28/2023 1 goal linked to scheduled/document ed intervention 1 goal intervention scheduled/document ed in this visit PT Impaired mobility Disciplines: PT 04/28/2023 Resolved on 04/28/2023 2 goals linked to scheduled/document ed interventions 2 goal interventions scheduled/document ed in this visit PT Impaired gait Disciplines: PT 04/28/2023 Resolved on 04/28/2023 2 goals linked to scheduled/document ed interventions 2 goal interventions scheduled/document ed in this visit PT Impaired balance Disciplines: PT 04/28/2023 Resolved on 04/28/2023 1 goal linked to scheduled/document ed intervention 1 goal intervention scheduled/document ed in this visit PT Learning Assessment Disciplines: PT 04/28/2023 Resolved on 04/28/2023 1 goal linked to scheduled/document ed intervention 1 goal intervention scheduled/document ed in this visit PT Pulmonary Disease Disciplines: PT 04/28/2023 Resolved on 04/28/2023 1 goal linked to scheduled/document ed intervention 1 goal intervention scheduled/document ed in this visit Goals Goal Associated Problem Outcome Goal Met? Visit Notes Patient/caregiver will be able to identify and report symptoms of sepsis Description: Patient/caregiver will be able to identify signs/symptoms of sepsis infection and will verbalize actions to take if suspected by 05/05/23. Sepsis No Patient to maintain parameters within physician-specified ranges throughout certification period Physician Specific Parameters No Manage Pain Description: Patient/caregiver will verbalize knowledge and understanding of appropriate techniques to control pain, including non-pharmacological techniques. Patient will verbalize or demonstrate an acceptable level of pain as evidenced by a pain score of 4/10 and improvement in ability to perform activities of daily living to be achieved by 05/05/23. Pain No Manage diabetic foot care Description: Patient/caregiver will demonstrate basic understanding of and compliance with diabetic self-care management as evidenced by verbalizing purpose of daily foot care and assessment by 05/05/23. Diabetic Foot Care No Manage oxygen Description: Patient/caregiver will use oxygen safely and effectively in home by verbalizing and demonstrating oxygen safety by 05/05/23. Oxygen No Manage discharge planning Description: Patient/caregiver will verbalize understanding of ongoing discharge plan provided related to disease management, arrangements for outpatient and/or community services, obtaining medications, supplies, and DME, as needed throughout certification period. Discharge No Improved Aerobic Capacity Description: LTG: Patient will demonstrate improved aerobic capacity to meet functional goals as evidenced by Rate of Percieved Exertion (RPE) of 0-2/10 during stair negotiation activity, to be achieved by 04/28/23. PT Impaired Aerobic Capacity Completed Yes Goal Met Improved Muscle Performance and/or ROM Description: LTG: Patient will demonstrate improved muscle performance to meet functional goals as evidenced by ability to tolerate 5 mins of standing activity, to be achieved by 04/28/23. LTG: Patient and/or caregiver will verbalize/demonstrate independence with home exercise program, to improve functional mobility, to be achieved by 04/28/23. PT Impaired muscle performance and/or ROM Completed Yes Goal Met Improved Transfers Description: LTG: Patient will demonstrate safe transfers to/from bed, chair and toilet independently, to be achieved by 04/28/23. PT Impaired mobility Completed Yes Goal Met Improved Bed Mobility Description: STG: Patient will demonstrate improved bed mobility independently to be achieved by 04/28/23. PT Impaired mobility Completed Yes Goal Met Improved Stair Climbing Description: LTG: Patient will demonstrate improved stair negotiation as evidenced by ascend/descend 3 steps with railing independently, to safely exit home, to be achieved by 04/28/23. PT Impaired gait Completed Yes Goal Met Improved Gait Description: STG: Patient will demonstrate improved gait ability as evidenced by ambulation 100 feet with no ad independently, in order to reach car in the driveway, to be achieved by 04/28/23. PT Impaired gait Completed Yes Goal Met Improved Balance Description: LTG: Patient will demonstrate improved standing balance to meet functional goals as evidenced by TUG score of 18 to be achieved by 04/28/23. PT Impaired balance Completed Yes Goal Met Demonstrate understanding of education Description: Patient and/or caregiver will understand educational instruction to be achieved by 04/28/23. PT Learning Assessment Completed Yes Goal Met Manage Primary Pulmonary Disease Description: Improve patient and/or caregiver understanding of primary pulmonary disease as evidenced by patient and/or caregiver able to verbalize, demonstrate, and teach back instruction, to be achieved by 04/28/23. PT Pulmonary Disease Completed Yes Goal Met Interventions Intervention Associated Problem/Goal Status Variance Visit Notes Risk of Sepsis Description: Patient is at risk for sepsis. Monitor closely for s/s of sepsis. Problem:Sepsis Goal:Patient/caregive r will be able to identify and report symptoms of sepsis Completed SPO2 Description: Stop activity if pulse ox is <92% at rest. Problem:Physician Specific Parameters Goal:Patient to maintain parameters within physician-specified ranges throughout certification period Completed Instruct on pain and instruct on strategies to control pain Problem:Pain Goal:Manage Pain Completed patient instructed on techniques to control pain including Non-Pharmacological measures; rest, positioning/elevation and mobility/therapeutic exercise. Monitor lower extremities for skin lesions and educate on proper foot care Problem:Diabetic Foot Care Goal:Manage diabetic foot care Completed patient instructed on diabetic foot care including daily skin inspection. Instruct on fire safety and safe and effective use of oxygen in the home Problem:Oxygen Goal:Manage oxygen Completed patient instructed on: findings of safety risk assessment, causes of fires, firerisks for neighboring residences and buildings, precautions that can prevent fire-related injuries, oxygen safety as outlined in Home Care Patient Handbook and recommendations for specific safety risks identified in the home: establishment of fire escape plan patient demonstrate compliance with safety recommendations. Instruct on ongoing discharge plan Problem:Discharge Goal:Manage discharge planning Completed Ongoing Discharge plan: Discharge plan discussed with patient including frequency and duration for home PT and plan for transition to: caregiver assistance. Physical Therapy Aerobic Capacity Training Problem:PT Impaired Aerobic Capacity Goal:Improved Aerobic Capacity Completed patient instructed on utilization of the Rate of Percieved Exertion (RPE) scale, to not exceed 3-6/10 indicating moderate to heavy intensity of activity. Developed, implemented, and instructed patient on physical therapy interventions completing 5 minutes of paced activity. Physical Therapy Therapeutic Exercises Problem:PT Impaired muscle performance and/or ROM Goal:Improved Muscle Performance and/or ROM Completed Developed, implemented, and instructed patient and/or caregiver on strengthening exercises: ambulation every hour awake for a total of atleast 10 times a day to tolerance. Instructed patient and/or caregiver in HEP and progressed HEP to include: increased distance and time ambulation as tolerated. . Instructed patient and/or caregiver to perform HEP hourly Physical Therapy Transfer Training Problem:PT Impaired mobility Goal:Improved Transfers Completed Transfer training and instruction to patient on safe transfers to and from bed, chair and toilet with independent Physical Therapy Bed Mobility Training Problem:PT Impaired mobility Goal:Improved Bed Mobility Completed Bed mobility training and instruction to patient, including rolling, supine<>sit and repositioning self with independent Physical Therapy Stair Training Problem:PT Impaired gait Goal:Improved Stair Climbing Completed Stair training and instruction to patient on safe stair climbing, ascend/descend 3 steps, with railing with supervision and verbal cues for sequence. Physical Therapy Gait Training Problem:PT Impaired gait Goal:Improved Gait Completed Gait training and instruction to patient on safe ambulation with no device for 50 feet with independent noting increased time and effort Physical Therapy Balance Training Problem:PT Impaired balance Goal:Improved Balance Completed Developed, implemented, and instructed patient on standing balance exercises including ambulation throughout her home as tolerated. Instruct and educate on knowledge deficits Problem:PT Learning Assessment Goal:Demonstrate understanding of education Completed patient verbalize and/or demonstrate understanding of physical therapy education including pulmonary disease management, fall prevention strategies, home safety, functional activity and home exercise program. Education methods include: verbal cues. Further education required to improve knowledge and compliance with fall prevention strategies, home safety, functional activity and home exercise program. Instruct on signs, symptoms, and management of primary pulmonary disease Problem:PT Pulmonary Disease Goal:Manage Primary Pulmonary Disease Completed patient instructed on definition of pulmonary disease. [facility] Visit Details Visit Type -SN AGENCY DC W V ISIT Discipline -Alf Problems Problem Description Start Date Status Goals Interve ntions Sepsis Disciplines: Skilled Services 03/07/2023 Resolved on 05/02/2023 1 goal linked to scheduled/document ed intervention Physician Specific Parameters Disciplines: Skilled Services 03/07/2023 Resolved on 05/02/2023 1 goal linked to scheduled/document ed intervention Pain Disciplines: Skilled Services 03/07/2023 Resolved on 05/02/2023 1 goal linked to scheduled/document ed intervention Diabetic Foot Care Disciplines: Skilled Services 03/07/2023 Resolved on 05/02/2023 1 goal linked to scheduled/document ed intervention Oxygen Disciplines: Skilled Services 03/07/2023 Resolved on 05/02/2023 1 goal linked to scheduled/document ed intervention Discharge Disciplines: Skilled Services 03/07/2023 Resolved on 05/02/2023 1 goal linked to scheduled/document ed intervention 2 goal interventions scheduled/document ed in this visit SN Integumentary/ Wounds Disciplines: SN 03/07/2023 Resolved on 05/02/2023 1 goal linked to scheduled/document ed intervention SN Learning Assessment Disciplines: SN 03/07/2023 Resolved on 05/02/2023 1 goal linked to scheduled/document ed intervention SN Heart Failure Disciplines: SN 04/26/2023 Resolved on 05/02/2023 1 goal linked to scheduled/document ed intervention Mental Health Disciplines: Skilled Services 04/26/2023 Resolved on 05/02/2023 1 goal linked to scheduled/document ed intervention High Risk Medications Disciplines: Skilled Services 04/26/2023 Resolved on 05/02/2023 1 goal linked to scheduled/document ed intervention SN COPD Disciplines: SN 04/26/2023 Resolved on 05/02/2023 1 goal linked to scheduled/document ed intervention Goals Goal Associated Problem Outcome Goal Met? Visit Notes Patient/caregiver will be able to identify and report symptoms of sepsis Description: Patient/caregiver will be able to identify signs/symptoms of sepsis infection and will verbalize actions to take if suspected by 05/05/23. Sepsis Completed Yes Patient to maintain parameters within physician-specified ranges throughout certification period Physician Specific Parameters Completed Yes Manage Pain Description: Patient/caregiver will verbalize knowledge and understanding of appropriate techniques to control pain, including non-pharmacological techniques. Patient will verbalize or demonstrate an acceptable level of pain as evidenced by a pain score of 4/10 and improvement in ability to perform activities of daily living to be achieved by 05/05/23. Pain Completed Yes Manage diabetic foot care Description: Patient/caregiver will demonstrate basic understanding of and compliance with diabetic self-care management as evidenced by verbalizing purpose of daily foot care and assessment by 05/05/23. Diabetic Foot Care Completed Yes Manage oxygen Description: Patient/caregiver will use oxygen safely and effectively in home by verbalizing and demonstrating oxygen safety by 05/05/23. Oxygen Completed Yes Manage discharge planning Description: Patient/caregiver will verbalize understanding of ongoing discharge plan provided related to disease management, arrangements for outpatient and/or community services, obtaining medications, supplies, and DME, as needed throughout certification period. Discharge Completed Yes Patient/Caregiver will have improved healing and be free of signs and symptoms of complications Description: Patient/caregiver will verbalize management strategies to promote wound healing & prevent complications as evidenced by improved healing & no complications by 05/05/23. SN Integumentary/Wounds Completed Yes Demonstrate understanding of education Description: Patient and/or caregiver will verbalize understanding of educational instruction provided throughout certification period. SN Learning Assessment Completed Yes Improved management of Heart Failure Description: Improve HF management as evidenced by stable weights, reduced edema, and less symptoms reported by patient to be achieved by 05-05-23. SN Heart Failure Completed Yes Improved management of mental health condition(s) Description: Patient/caregiver will teach back mental health symptom identification and management techniques by 05-05-23. Mental Health Completed Yes Patient/caregiver will teach back high risk medication side effect and precaution education High Risk Medications Completed Yes Improved management of COPD Description: Improve COPD management as evidenced by decreased reports of dyspnea, medication compliance, and patient able to teach back strategies to manage condition. Goal to be achieved by 05-05-23. SN COPD Completed Yes Interventions Intervention Associated Problem/Goal Status Variance Visit Notes Deliver [facility] Problem:Discharge Goal:Manage discharge planning Completed Delivered [facility] on 05/02/23 for discharge date of 05/02/23. Instruct on final discharge plan and deliver discharge instructions Problem:Discharge Goal:Manage discharge planning Completed Delivered Discharge plan: Discharge plan discussed with patient for plan for transition to: live independently at home without ongoing services documented in this encounter [facility] for referral (narrative)* Diagnostic Procedure Only (Routine) - Pending Review Specialty Diagnoses / Procedures Referred By Aarti t Referred To Contact [facility] Diagnoses Encounter for screening mammogram for breast cancer Procedures SHERYL SCREENING SCREENING MAMMOGRAPHY BI 2-VIEW BREAST INC CAD Panfilo Oreilly MD [address] [place] [address] [facility] [address] [place] [address] Referral ID Status Reason Start Date Expiration Date Visits Requested Visits Authorized [id number] Pending Review Auto-Generat ed Referral 05/29/2022 06/28/2023 1 1 [facility] for referral (narrative)* Outpatient Procedure (Routine) - Closed Specialty Diagnoses / Procedures Referred By Contac t Referred To Contact [facility] Diagnoses Acute diastolic CHF (congestive heart failure) (HCC) Other chest pain Procedures ECG COMPLETE ECG ROUTINE ECG W/LEAST 12 LDS W/I&R Panfilo Oreilly MD [address] [place] [address] [facility] [place] [address] [place] [address] Referral ID Status Reason Start Date Expiration Date V isits Requested Visits Authorized [id number] Closed Auto-Generate d Referral 10/18/2022 10/18/2023 1 1 * Diagnostic Procedure Only (Urgent) - Pending Review Specialty Diagnoses / Procedures Referred By Contact Referred To Contact [facility] Diagnoses Acute diastolic CHF (congestive heart failure) (HCC) Procedures NM CARDIAC PERF STRESS/PHARM MYOCARDIAL SPECT MULTIPLE STUDIES Panfilo Oreilly MD [address] [place] [address] [facility] [address] [place] [address] Referral ID Status Reason Start Date Expiration Date Visits Requested Visits Authorized [id number] Pending Review Auto-Generat ed Referral 2 11/17/2023 1 1 * Consult, Test, Treat (Routine) - Authorized Specialty Diagnoses / Procedures Referred By Contac t Referred To Contact Cardiology Diagnoses Acute diastolic CHF (congestive heart failure) (HCC) Procedures CONSULT TO CARDIOLOGY OFFICE/OUTPATIENT NEW HIGH MDM 60-74 MINUTES Panfilo Oreilly MD [facility] [place] [address] Referral ID Status Reason Start Date Expiration Date Visits Requested Visits Authorized [id number] Authorized PCP Requested Referral 2 10/18/2023 1 1 [facility] for referral (narrative)* Outpatient Procedure (Routine) - Pending Review Specialty Diagnoses / Procedures Referred By Contac t Referred To [facility] Diagnoses Onychomycosis Other diabetic neurological complication associated with type 2 diabetes mellitus (HCC) Diminished pulses in lower extremity Procedures PVR ANK PRESS TAY VAS LAB NON-INVAS PHYSIOLOGIC STD EXTREMITY ART 2 LEVEL Minesh Mosley [address] [place] [address] [place] [address] Referral ID Status Reason Start Date Expiration Date Visits Requested Visits Authorized [id number] Pending Review Auto-Generat ed Referral 11/06/2022 11/06/2023 1 1 [facility] for referral (narrative)* Outpatient Procedure (Urgent) - Authorized Specialty Diagnoses / Procedures Referred By Contact Referred To Contact [facility] Diagnoses Tremor Procedures EPIL EEG ROUTINE ELECTROENCEPHALOGRAM REC COMA/SLEEP ONLY Panfilo Oreilly MD [address] [place] [address] [place] [address] Referral ID Status Reason Start Date Expiration Date Visits Requested Visits Authorized [id number] Authorized Auto-Generat ed Referral 11/08/2022 11/08/2023 1 1 * Consult, Test, Treat (Routine) - Authorized Specialty Diagnoses / Procedures Referred By Contac t Referred To Contact Neurology Diagnoses Tremor Procedures CONSULT TO NEUROLOGY OFFICE/OUTPATIENT [facility] 60-74 MINUTES Panfilo Oreilly MD [address] [place] [address] Referral ID Status Reason Start Date Expiration Date Visits Requested Visits Authorized [id number] Authorized PCP Requested Referral 11/08/2022 11/08/2023 [facility] Diagnostic Procedure Only (Routine) - Pending Review Specialty Diagnoses / Procedures Referred By Contac t Referred To Contact [facility] Diagnoses Encounter for screening mammogram for breast cancer Procedures SHERYL SCREENING SCREENING MAMMOGRAPHY BI 2-VIEW BREAST INC CAD Panfilo Oreilly MD [address] [place] [address] [facility] [address] [place] [address] Referral ID Status Reason Start Date Expiration Date Visits Requested Visits Authorized [id number] Pending Review Auto-Generat ed Referral 04/30/2023 05/29/2024 1 1 [facility] for referral (narrative)No reason for referral information availableWKettering Health [facility] Work Phone: Advance Directives No Advanced Directives Records FoundDocuments on File Type Date Recorded 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 Advance Directive(s) 02/05/2022 1:53 PM Advance Directive(s) 10/16/2021 9:28 AM Advance Directive Response Recorded Date/ Time Advance Directives No October 1:07pm Living Will No January 15, 7:32pm Power of Senior J2Ee Developer No January 15, 2022 7:32pm Advance Directive Response Recorded Date/ Time Advance Directives No October 1:07pm Living Will No March 31, 2022 8: 51pm Power of Senior J2Ee Developer No March 31, 2022 8:51pm Documents on File Type Date Recorded 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 Advance Directive(s) 02/05/2022 1:53 PM Advance Directive(s) 10/16/2021 9:28 AM Advance Directive Response Recorded Date/ Time Advance Directives No October 1:07pm Living Will No September 22 4:36pm Power of Senior J2Ee Developer No September 22, 2022 4:36pm Advance Directive Response Recorded Date/ Time Advance Directives No October 1:07pm Living Will No September 22 7:35pm Power of Senior J2Ee Developer No September 22, 2022 7:35pm Advance Directive Response Recorded Date/ Time Advance Directives No October 12:07pm Living Will No September 22 6:35pm Power of Senior J2Ee Developer No September 22, 2022 6:35pm Advance Directive Response Recorded Date/ Time Advance Directives No October 12:07pm Living Will No November 01 2:42pm Power of Senior J2Ee Developer No November 01, 2022 2:42pm Advance Directive Response Recorded Date/ Time Advance Directives No October 12:07pm Living Will No December 09 12:54pm Power of Senior J2Ee Developer No December 09, 2 023 12:54pm Advance Directive Response Recorded Date/ Time Advance Directives No October 12:07pm Living Will No December 18 9:38pm Power of Senior J2Ee Developer No December 18, 2022 9:38pm Advance Directive Response Recorded Date/ Time Advance Directives No October 12:07pm Living Will No December 19 12:31am Power of Senior J2Ee Developer No December 19, 2022 12:31am Advance Directive Response Recorded Date/ Time Advance Directives No October 12:07pm Living Will No December 24 9:24pm Power of Senior J2Ee Developer No December 24, 2022 9:24pm Advance Directive Response Recorded Date/ Time Advance Directives No October 12:07pm Living Will No January 13, 2 023 12:05am Power of Senior J2Ee Developer No January 13, 2023 12:05am Advance Directive Response Recorded Date/ Time Advance Directives No October 1:07pm Living Will No February 18, 2023 5:23pm Power of Senior J2Ee Developer No February 18 5:23pm Latest Code Status on File Code Status Date Activated Date Inactivated Comments Full Code 02/25/2023 7:20 AM Latest Code Status on File Code Status Date Activated Date Inactivated Comments Full Code 02/25/2023 7:20 AM Advance Directive Response Recorded Date/ Time Advance Directives No October 1:07pm Living Will No March 02, 2023 4:28pm Power of Senior J2Ee Developer No March 02 4:28pm Latest Code Status on File Code Status Date Activated Date Inactivated Comments Full Code 03/07/2023 11:33 PM Full Code 02/25/2023 7:20 AM 03/07/2023 11:33 PM Latest Code Status on File Code Status Date Activated Date Inactivated Comments Full Code 03/07/2023 11:33 PM Full Code 02/25/2023 7:20 AM 03/07/2023 11:33 PM Latest Code Status on File Code Status Date Activated Date Inactivated Comments Full Code 03/07/2023 11:33 PM Code Status History Code Status Date Activated Date Inactivated Comments Full Code 02/25/2023 7:20 AM 03/07/2023 11:33 PM Advance Directive Response Recorded Date/ Time Name of Medical Power of Senior J2Ee Developer EM THOMAS. July 14, 2023 11:40am Advance Directives No October 1:07pm Living Will No July 14 11:40am Power of Senior J2Ee Developer Yes July 14, 2 023 11:40am Advance Directive Response Recorded Date/ Time Name of Medical Power of Senior J2Ee Developer EM THOMAS. July 14, 2023 4:40pm Advance Directives No October 1:07pm Living Will No July 14 3 4:40pm Power of Senior J2Ee Developer Yes July 14, 2 023 4:40pm Advance Directive Response Recorded Date/ Time Name of Medical Power of Senior J2Ee Developer EM THOMAS. July 14, 2023 3:40pm Advance Directives No October 12:07pm Living Will No July 14 3 3:40pm Power of Senior J2Ee Developer Yes July 14, 2 023 3:40pm Advance Directive Response Recorded Date/ Time Advance Directives No October 12:07pm Living Will No July 14 3 3:40pm Power of Senior J2Ee Developer Yes July 14, 2 023 3:40pm Advance Directive Response Recorded Date/ Time Advance Directives No October 12:07pm Living Will No January 14, 024 10:38pm Power of Senior J2Ee Developer No January 14, 2024 10:38pm Date Activated Date Inactivated Comments 03/07/2023 11:33 PM Date Activated Date Inactivated Comments 02/25/2023 7:20 AM 03/07/2023 11:33 PM Advance Directive Response Recorded Date/ Time Advance Directives No October 1:07pm Living Will No March 27, 2024 10:32pm Power of Senior J2Ee Developer No March 27 10:32pm Advance Directive Response Recorded Date/ Time Do you have a Healthcare Power of Senior J2Ee Developer? No August 16, 2025 9:00pm Advance Directives No October 1:07pm Advance Directive Response Recorded Date/ Time Do you have a Healthcare Power of Senior J2Ee Developer? No August 16, 2025 10:47pm Advance Directives No October 1:07pm Chief Complaint and Reason for Visit Chief Complaint PNEUMONIA Pneumonia Pneumonia Pneumonia Hospital FU DYPSNEA DYPSNEA Reason for Visit Pneumonia Right leg pain Acute hyponatremia Acute on chronic respiratory failure with hypoxia and hypercapnia [facility] (acute kidney injury) [facility] (closed head injury) Congestive heart failure Acute and chronic respiratory failure with hypoxia Chronic diastolic (congestive) heart failure Morbid obesity 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 Chief Complaint PNEUMONIA Pneumonia Pneumonia [facility] FU DYPSNEA DYPSNEA CP Reason for Visit Pneumonia Right leg pain Acute hyponatremia Acute on chronic respiratory failure with hypoxia and hypercapnia KERRY (acute kidney injury) [facility] (closed head injury) Congestive heart failure Acute and chronic respiratory failure with hypoxia Chronic diastolic (congestive) heart failure Morbid obesity 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 Chief Complaint ACUTE HYPOXIC RESP F AILURE Chief Complaint ACUTE HYPOXIC RESP F AILURE ACUTE HYPOXIC RESP FAILURE ACUTE HYPOXIC RESP FAILURE Reason for Visit Acute on chronic hea rt failure with normal ejection fraction Acute and chronic respiratory failure with hypoxia Chief Complaint ACUTE HYPOXIC RESP F AILURE ACUTE HYPOXIC RESP FAILURE ACUTE HYPOXIC RESP FAILURE ACUTE HYPOXIC RESP FAILURE Reason for Visit Acute on chronic hea rt failure with normal ejection fraction Acute and chronic respiratory failure with hypoxia Chief Complaint ACUTE HYPOXIC RESP F AILURE ACUTE HYPOXIC RESP FAILURE ACUTE HYPOXIC RESP FAILURE ACUTE HYPOXIC RESP FAILURE sob Reason for Visit Acute on chronic hea rt failure with normal ejection fraction Acute and chronic respiratory failure with hypoxia Chief Complaint ACUTE HYPOXIC RESP F AILURE ACUTE HYPOXIC RESP FAILURE ACUTE HYPOXIC RESP FAILURE ACUTE HYPOXIC RESP FAILURE sob SOB, BURN Reason for Visit Acute on chronic hea rt failure with normal ejection fraction Acute and chronic respiratory failure with hypoxia Chief Complaint ACUTE HYPOXIC RESP F AILURE ACUTE HYPOXIC RESP FAILURE ACUTE HYPOXIC RESP FAILURE ACUTE HYPOXIC RESP FAILURE sob SOB, BURN KERRY, DEBILITY Reason for Visit Acute on chronic hea rt failure with normal ejection fraction Acute and chronic respiratory failure with hypoxia [facility] (acute kidney injury) Metabolic encephalopathy Unable to ambulate Essential hypertension Type 2 diabetes mellitus Chief Complaint ACUTE HYPOXIC RESP F AILURE ACUTE HYPOXIC RESP FAILURE ACUTE HYPOXIC RESP FAILURE ACUTE HYPOXIC RESP FAILURE sob SOB, BURN KERRY, DEBILITY KERRY, DEBILITY KERRY, DEBILITY KERRY, DEBILITY Reason for Visit Acute on chronic hea rt failure with normal ejection fraction Acute and chronic respiratory failure with hypoxia [facility] (acute kidney injury) Metabolic encephalopathy Unable to ambulate Essential hypertension Type 2 diabetes mellitus Chief Complaint ACUTE HYPOXIC RESP F AILURE ACUTE HYPOXIC RESP FAILURE ACUTE HYPOXIC RESP FAILURE ACUTE HYPOXIC RESP FAILURE sob SOB, BURN KERRY, DEBILITY KERRY, DEBILITY KERRY, DEBILITY KERRY, DEBILITY ABSCESS Reason for Visit Acute on chronic hea rt failure with normal ejection fraction Acute and chronic respiratory failure with hypoxia KERRY (acute kidney injury) Metabolic encephalopathy Unable to ambulate Essential hypertension Type 2 diabetes mellitus Chief Complaint ACUTE HYPOXIC RESP F AILURE ACUTE HYPOXIC RESP FAILURE ACUTE HYPOXIC RESP FAILURE ACUTE HYPOXIC RESP FAILURE sob SOB, BURN KERRY, DEBILITY KERRY, DEBILITY KERRY, DEBILITY KERRY, DEBILITY ABSCESS ABSCESS Reason for Visit Acute on chronic hea rt failure with normal ejection fraction Acute and chronic respiratory failure with hypoxia K[facility] (acute kidney injury) Metabolic encephalopathy Unable to ambulate Chief Complaint sob SOB, BURN KERRY, DEBILITY KERRY, DEBILITY KERRY, DEBILITY KERRY, DEBILITY ABSCESS ABSCESS ABSCESS Reason for Visit [facility] (acute kidney in jury) Metabolic encephalopathy Unable to ambulate Chief Complaint SOB, BURN KERRY, DEBILITY KERRY, DEBILITY KERRY, DEBILITY KERRY, DEBILITY ABSCESS ABSCESS ABSCESS RESPIRATORY FAILURE RESPIRATORY FAILURE RESPIRATORY FAILURE RESPIRATORY FAILURE RESPIRATORY FAILURE RESPIRATORY FAILURE RESPIRATORY FAILURE RESPIRATORY FAILURE Reason for Visit KERRY (acute kidney in jury) Metabolic encephalopathy Unable to ambulate Acidosis, lactic Acute bronchospasm Acute encephalopathy BMI 60.0-69.9, adult Community acquired pneumonia Congestive heart failure Noncompliance with CPAP treatment Perianal abscess Pneumonia Severe sepsis Type 2 diabetes mellitus with hyperglycemia Venous stasis dermatitis of both lower extremities Acute on chronic respiratory failure with hypercapnia Acute on chronic respiratory failure with hypoxemia Acute on chronic respiratory failure with hypoxia and hypercapnia 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 Chief Complaint SOB, BURN KERRY, DEBILITY KERRY, DEBILITY KERRY, DEBILITY KERRY, DEBILITY ABSCESS ABSCESS ABSCESS RESPIRATORY FAILURE RESPIRATORY FAILURE RESPIRATORY FAILURE RESPIRATORY FAILURE RESPIRATORY FAILURE RESPIRATORY FAILURE RESPIRATORY FAILURE RESPIRATORY FAILURE RESPIRATORY FAILURE Reason for Visit KERRY (acute kidney in jury) Metabolic encephalopathy Unable to ambulate Acidosis, lactic Acute bronchospasm Acute encephalopathy Acute on chronic respiratory failure with hypercapnia Acute on chronic respiratory failure with hypoxemia Acute on chronic respiratory failure with hypoxia and hypercapnia Community acquired pneumonia Perianal abscess Pneumonia Severe sepsis Chief Complaint COPD EXACERBATION COPD EXACERBATION COPD EXACERBATION COPD EXACERBATION CHF Reason for Visit COPD with acute exac erbation Elevated lactic acid level Chest pain CHF (congestive heart failure) Chief Complaint COPD EXACERBATION COPD EXACERBATION COPD EXACERBATION COPD EXACERBATION VOLUME OVERLOAD Congestive heart failure VOLUME OVERLOAD Reason for Visit COPD with acute exac erbation Elevated lactic acid level Chest pain CHF (congestive heart failure) Chief Complaint VOLUME OVERLOAD Congestive heart failure VOLUME OVERLOAD Reason for Visit Chest pain Chief Complaint VOLUME OVERLOAD Congestive heart failure VOLUME OVERLOAD GOITER Reason for Visit Chest pain Chief Complaint GOITER THYROID LESION Chief Complaint GOITER THYROID LESION Edema, SOB Chief Complaint THYROID LESION Edema, SOB accidentally took too much insulin Chief Complaint Admit Date RLE CELLUTIS/STASIS WOUNDS, ? HF EXAC Se ptember 2024 9:09pm Reason for Visit Admit Date Cellulitis of leg August 16, 2025 9:09pm Elevated troponin August 16, 2025 9:09pm Chief Complaint Admit Date RLE CELLUTIS/STASIS WOUNDS, ? HF EXAC Se ptember 2024 9:09pm RLE CELLUTIS/STASIS WOUNDS, ? HF EXAC Se ptember 2024 6:59am RLE CELLUTIS/STASIS WOUNDS, ? HF EXAC Se ptember 2024 7:38am RLE CELLUTIS/STASIS WOUNDS, ? HF EXAC Se ptember 2024 7:50am Reason for Visit Admit Date Cellulitis and abscess of right leg Aug [facility] 2024 9:09pm Contusion of right great toe with damage to nail August 16, 2025 9:09pm Elevated troponin August 16, 2025 9:09pm Right leg pain August 16, 2025 9:09pm Skin ulcer of left great toe , limited to breakdown of skin August 16, 2025 9:09pm Type 2 diabetes mellitus with hyperglyce mis August 16, 2025 9:09pm Chronic venous stasis dermatitis [facility] 2024 9:09pm Cellulitis of leg August 16, 2025 9:09pm Sepsis August 16, 2025 9:09pm Family History No Family History Records Found Relationship Condition Age at Onset Recorded Date/T kamaljit father Cerebrovascular accident (CVA) Unknown Cardiac disease Unknown Diabetes mellitus Unknown mother Disorder of thyroid Unknown Reason for Referral Specialty Diagnoses / Procedures Referred By Aarti coulter Referred To Contact Panfilo Oreilly MD [address] [place] [address] Referral ID Status Reason Start Date Expiration Date Visits Re quested Visits Authorized [id number] Closed 1 1 Specialty Diagnoses / Procedures Referred By Contac t Referred To Contact Diagnoses Acute pulmonary embolism without acute cor pulmonale, unspecified pulmonary embolism type (HCC) Bacterial pneumonia Panfilo Oreilly MD [address] [place] [address] Referral ID Status Reason Start Date Expiration Date Visits Re quested Visits Authorized [id number] Closed 1 1 Referral ID Status Reason Start Date Expiration Date Visits Re quested Visits Authorized [id number] Closed 1 1 Summary Purpose Medications Administered Section Inactive Administered Medications - up to 3 most recent administrations Medication Order MAR Action Action Date Dose Rate Site fentaNYL 50 mcg/mL 50 mcg injection (SUBLIMAZE) 50 mcg, INTRAVENOUS, ONCE, 1 dose, On Fri12/25/22 at 0300 Given 12/25/2022 1:07 AM EST 50 mcg Arm, Left Health Concerns Infection Onset Date Last Indicated Resolved Time COVID-19 Rule-Out 12/25/2022 12/25/2022 12/25/2022 4:03 AM EST Infection Onset Date Last Indicated Resolved Time COVID-19 Rule-Out 01/14/2023 01/14/2023 01/14/2023 10:07 AM EST Additional Source Comments Source Comments (unrecognize d section and content) In the event this informatio n is protected by the Federal Confidentiality of Alcohol and Drug Abuse Patient Records regulations: The Federal rules restrict any use of the information to criminally investigate or prosecute any alcohol or drug abuse patient.[facility] FoundationIn the event this information is protected by the Federal Confidentiality of Alcohol and Drug Abuse Patient Records regulations: The Federal rules restrict any use of the information to criminally investigate or prosecute any alcohol or drug abuse patient.[facility] FoundationIn the event this information is protected by the Federal Confidentiality of Alcohol and Drug Abuse Patient Records regulations: The Federal rules restrict any use of the information to criminally investigate or prosecute any alcohol or drug abuse patient.[facility] FoundationIn the event this information is protected by the Federal Confidentiality of Alcohol and Drug Abuse Patient Records regulations: The Federal rules restrict any use of the information to criminally investigate or prosecute any alcohol or drug abuse patient.[facility] FoundationIn the event this information is protected by the Federal Confidentiality of Alcohol and Drug Abuse Patient Records regulations: The Federal rules restrict any use of the information to criminally investigate or prosecute any alcohol or drug abuse patient.[facility] FoundationIn the event this information is protected by the Federal Confidentiality of Alcohol and Drug Abuse Patient Records regulations: The Federal rules restrict any use of the information to criminally investigate or prosecute any alcohol or drug abuse patient.[facility] FoundationIn the event this information is protected by the Federal Confidentiality of Alcohol and Drug Abuse Patient Records regulations: The Federal rules restrict any use of the information to criminally investigate or prosecute any alcohol or drug abuse patient.[facility] FoundationIn the event this information is protected by the Federal Confidentiality of Alcohol and Drug Abuse Patient Records regulations: The Federal rules restrict any use of the information to criminally investigate or prosecute any alcohol or drug abuse patient.[facility] FoundationIn the event this information is protected by the Federal Confidentiality of Alcohol and Drug Abuse Patient Records regulations: The Federal rules restrict any use of the information to criminally investigate or prosecute any alcohol or drug abuse patient.[facility] FoundationIn the event this information is protected by the Federal Confidentiality of Alcohol and Drug Abuse Patient Records regulations: The Federal rules restrict any use of the information to criminally investigate or prosecute any alcohol or drug abuse patient.[facility] FoundationIn the event this information is protected by the Federal Confidentiality of Alcohol and Drug Abuse Patient Records regulations: The Federal rules restrict any use of the information to criminally investigate or prosecute any alcohol or drug abuse patient.[facility] FoundationIn the event this information is protected by the Federal Confidentiality of Alcohol and Drug Abuse Patient Records regulations: The Federal rules restrict any use of the information to criminally investigate or prosecute any alcohol or drug abuse patient.[facility] FoundationIn the event this information is protected by the Federal Confidentiality of Alcohol and Drug Abuse Patient Records regulations: The Federal rules restrict any use of the information to criminally investigate or prosecute any alcohol or drug abuse patient.[facility] FoundationIn the event this information is protected by the Federal Confidentiality of Alcohol and Drug Abuse Patient Records regulations: The Federal rules restrict any use of the information to criminally investigate or prosecute any alcohol or drug abuse patient.[facility] FoundationIn the event this information is protected by the Federal Confidentiality of Alcohol and Drug Abuse Patient Records regulations: The Federal rules restrict any use of the information to criminally investigate or prosecute any alcohol or drug abuse patient.[facility] FoundationIn the event this information is protected by the Federal Confidentiality of Alcohol and Drug Abuse Patient Records regulations: The Federal rules restrict any use of the information to criminally investigate or prosecute any alcohol or drug abuse patient.[facility] FoundationIn the event this information is protected by the Federal Confidentiality of Alcohol and Drug Abuse Patient Records regulations: The Federal rules restrict any use of the information to criminally investigate or prosecute any alcohol or drug abuse patient.[facility] FoundationIn the event this information is protected by the Federal Confidentiality of Alcohol and Drug Abuse Patient Records regulations: The Federal rules restrict any use of the information to criminally investigate or prosecute any alcohol or drug abuse patient.[facility] FoundationIn the event this information is protected by the Federal Confidentiality of Alcohol and Drug Abuse Patient Records regulations: The Federal rules restrict any use of the information to criminally investigate or prosecute any alcohol or drug abuse patient.[facility] FoundationIn the event this information is protected by the Federal Confidentiality of Alcohol and Drug Abuse Patient Records regulations: The Federal rules restrict any use of the information to criminally investigate or prosecute any alcohol or drug abuse patient.[facility] FoundationIn the event this information is protected by the Federal Confidentiality of Alcohol and Drug Abuse Patient Records regulations: The Federal rules restrict any use of the information to criminally investigate or prosecute any alcohol or drug abuse patient.[facility] FoundationIn the event this information is protected by the Federal Confidentiality of Alcohol and Drug Abuse Patient Records regulations: The Federal rules restrict any use of the information to criminally investigate or prosecute any alcohol or drug abuse patient.[facility] FoundationIn the event this information is protected by the Federal Confidentiality of Alcohol and Drug Abuse Patient Records regulations: The Federal rules restrict any use of the information to criminally investigate or prosecute any alcohol or drug abuse patient.[facility] FoundationIn the event this information is protected by the Federal Confidentiality of Alcohol and Drug Abuse Patient Records regulations: The Federal rules restrict any use of the information to criminally investigate or prosecute any alcohol or drug abuse patient.[facility] FoundationIn the event this information is protected by the Federal Confidentiality of Alcohol and Drug Abuse Patient Records regulations: The Federal rules restrict any use of the information to criminally investigate or prosecute any alcohol or drug abuse patient.[facility] FoundationIn the event this information is protected by the Federal Confidentiality of Alcohol and Drug Abuse Patient Records regulations: The Federal rules restrict any use of the information to criminally investigate or prosecute any alcohol or drug abuse patient.[facility] FoundationIn the event this information is protected by the Federal Confidentiality of Alcohol and Drug Abuse Patient Records regulations: The Federal rules restrict any use of the information to criminally investigate or prosecute any alcohol or drug abuse patient.[facility] FoundationIn the event this information is protected by the Federal Confidentiality of Alcohol and Drug Abuse Patient Records regulations: The Federal rules restrict any use of the information to criminally investigate or prosecute any alcohol or drug abuse patient.[facility] FoundationIn the event this information is protected by the Federal Confidentiality of Alcohol and Drug Abuse Patient Records regulations: The Federal rules restrict any use of the information to criminally investigate or prosecute any alcohol or drug abuse patient.[facility] FoundationIn the event this information is protected by the Federal Confidentiality of Alcohol and Drug Abuse Patient Records regulations: The Federal rules restrict any use of the information to criminally investigate or prosecute any alcohol or drug abuse patient.[facility] FoundationIn the event this information is protected by the Federal Confidentiality of Alcohol and Drug Abuse Patient Records regulations: The Federal rules restrict any use of the information to criminally investigate or prosecute any alcohol or drug abuse patient.[facility] FoundationIn the event this information is protected by the Federal Confidentiality of Alcohol and Drug Abuse Patient Records regulations: The Federal rules restrict any use of the information to criminally investigate or prosecute any alcohol or drug abuse patient.[facility] FoundationIn the event this information is protected by the Federal Confidentiality of Alcohol and Drug Abuse Patient Records regulations: The Federal rules restrict any use of the information to criminally investigate or prosecute any alcohol or drug abuse patient.[facility] FoundationIn the event this information is protected by the Federal Confidentiality of Alcohol and Drug Abuse Patient Records regulations: The Federal rules restrict any use of the information to criminally investigate or prosecute any alcohol or drug abuse patient.[facility] FoundationIn the event this information is protected by the Federal Confidentiality of Alcohol and Drug Abuse Patient Records regulations: The Federal rules restrict any use of the information to criminally investigate or prosecute any alcohol or drug abuse patient.[facility] FoundationIn the event this information is protected by the Federal Confidentiality of Alcohol and Drug Abuse Patient Records regulations: The Federal rules restrict any use of the information to criminally investigate or prosecute any alcohol or drug abuse patient.[facility] FoundationIn the event this information is protected by the Federal Confidentiality of Alcohol and Drug Abuse Patient Records regulations: The Federal rules restrict any use of the information to criminally investigate or prosecute any alcohol or drug abuse patient.[facility] FoundationIn the event this information is protected by the Federal Confidentiality of Alcohol and Drug Abuse Patient Records regulations: The Federal rules restrict any use of the information to criminally investigate or prosecute any alcohol or drug abuse patient.[facility] FoundationIn the event this information is protected by the Federal Confidentiality of Alcohol and Drug Abuse Patient Records regulations: The Federal rules restrict any use of the information to criminally investigate or prosecute any alcohol or drug abuse patient.[facility] FoundationIn the event this information is protected by the Federal Confidentiality of Alcohol and Drug Abuse Patient Records regulations: The Federal rules restrict any use of the information to criminally investigate or prosecute any alcohol or drug abuse patient.[facility] FoundationIn the event this information is protected by the Federal Confidentiality of Alcohol and Drug Abuse Patient Records regulations: The Federal rules restrict any use of the information to criminally investigate or prosecute any alcohol or drug abuse patient.[facility] FoundationIn the event this information is protected by the Federal Confidentiality of Alcohol and Drug Abuse Patient Records regulations: The Federal rules restrict any use of the information to criminally investigate or prosecute any alcohol or drug abuse patient.[facility] FoundationIn the event this information is protected by the Federal Confidentiality of Alcohol and Drug Abuse Patient Records regulations: The Federal rules restrict any use of the information to criminally investigate or prosecute any alcohol or drug abuse patient.[facility] FoundationIn the event this information is protected by the Federal Confidentiality of Alcohol and Drug Abuse Patient Records regulations: The Federal rules restrict any use of the information to criminally investigate or prosecute any alcohol or drug abuse patient.[facility] FoundationIn the event this information is protected by the Federal Confidentiality of Alcohol and Drug Abuse Patient Records regulations: The Federal rules restrict any use of the information to criminally investigate or prosecute any alcohol or drug abuse patient.[facility] FoundationIn the event this information is protected by the Federal Confidentiality of Alcohol and Drug Abuse Patient Records regulations: The Federal rules restrict any use of the information to criminally investigate or prosecute any alcohol or drug abuse patient.[facility] FoundationIn the event this information is protected by the Federal Confidentiality of Alcohol and Drug Abuse Patient Records regulations: The Federal rules restrict any use of the information to criminally investigate or prosecute any alcohol or drug abuse patient.[facility] FoundationIn the event this information is protected by the Federal Confidentiality of Alcohol and Drug Abuse Patient Records regulations: The Federal rules restrict any use of the information to criminally investigate or prosecute any alcohol or drug abuse patient.[facility] FoundationIn the event this information is protected by the Federal Confidentiality of Alcohol and Drug Abuse Patient Records regulations: The Federal rules restrict any use of the information to criminally investigate or prosecute any alcohol or drug abuse patient.[facility] FoundationIn the event this information is protected by the Federal Confidentiality of Alcohol and Drug Abuse Patient Records regulations: The Federal rules restrict any use of the information to criminally investigate or prosecute any alcohol or drug abuse patient.[facility] FoundationIn the event this information is protected by the Federal Confidentiality of Alcohol and Drug Abuse Patient Records regulations: The Federal rules restrict any use of the information to criminally investigate or prosecute any alcohol or drug abuse patient.[facility] FoundationIn the event this information is protected by the Federal Confidentiality of Alcohol and Drug Abuse Patient Records regulations: The Federal rules restrict any use of the information to criminally investigate or prosecute any alcohol or drug abuse patient.[facility] FoundationIn the event this information is protected by the Federal Confidentiality of Alcohol and Drug Abuse Patient Records regulations: The Federal rules restrict any use of the information to criminally investigate or prosecute any alcohol or drug abuse patient.[facility] FoundationIn the event this information is protected by the Federal Confidentiality of Alcohol and Drug Abuse Patient Records regulations: The Federal rules restrict any use of the information to criminally investigate or prosecute any alcohol or drug abuse patient.[facility] FoundationIn the event this information is protected by the Federal Confidentiality of Alcohol and Drug Abuse Patient Records regulations: The Federal rules restrict any use of the information to criminally investigate or prosecute any alcohol or drug abuse patient.[facility] FoundationIn the event this information is protected by the Federal Confidentiality of Alcohol and Drug Abuse Patient Records regulations: The Federal rules restrict any use of the information to criminally investigate or prosecute any alcohol or drug abuse patient.[facility] FoundationIn the event this information is protected by the Federal Confidentiality of Alcohol and Drug Abuse Patient Records regulations: The Federal rules restrict any use of the information to criminally investigate or prosecute any alcohol or drug abuse patient.[facility] FoundationIn the event this information is protected by the Federal Confidentiality of Alcohol and Drug Abuse Patient Records regulations: The Federal rules restrict any use of the information to criminally investigate or prosecute any alcohol or drug abuse patient.[facility] FoundationIn the event this information is protected by the Federal Confidentiality of Alcohol and Drug Abuse Patient Records regulations: The Federal rules restrict any use of the information to criminally investigate or prosecute any alcohol or drug abuse patient.[facility] FoundationIn the event this information is protected by the Federal Confidentiality of Alcohol and Drug Abuse Patient Records regulations: The Federal rules restrict any use of the information to criminally investigate or prosecute any alcohol or drug abuse patient.[facility] FoundationIn the event this information is protected by the Federal Confidentiality of Alcohol and Drug Abuse Patient Records regulations: The Federal rules restrict any use of the information to criminally investigate or prosecute any alcohol or drug abuse patient.[facility] FoundationIn the event this information is protected by the Federal Confidentiality of Alcohol and Drug Abuse Patient Records regulations: The Federal rules restrict any use of the information to criminally investigate or prosecute any alcohol or drug abuse patient.[facility] FoundationIn the event this information is protected by the Federal Confidentiality of Alcohol and Drug Abuse Patient Records regulations: The Federal rules restrict any use of the information to criminally investigate or prosecute any alcohol or drug abuse patient.[facility] FoundationIn the event this information is protected by the Federal Confidentiality of Alcohol and Drug Abuse Patient Records regulations: The Federal rules restrict any use of the information to criminally investigate or prosecute any alcohol or drug abuse patient.[facility] FoundationIn the event this information is protected by the Federal Confidentiality of Alcohol and Drug Abuse Patient Records regulations: The Federal rules restrict any use of the information to criminally investigate or prosecute any alcohol or drug abuse patient.[facility] FoundationIn the event this information is protected by the Federal Confidentiality of Alcohol and Drug Abuse Patient Records regulations: The Federal rules restrict any use of the information to criminally investigate or prosecute any alcohol or drug abuse patient.[facility] FoundationIn the event this information is protected by the Federal Confidentiality of Alcohol and Drug Abuse Patient Records regulations: The Federal rules restrict any use of the information to criminally investigate or prosecute any alcohol or drug abuse patient.[facility] FoundationIn the event this information is protected by the Federal Confidentiality of Alcohol and Drug Abuse Patient Records regulations: The Federal rules restrict any use of the information to criminally investigate or prosecute any alcohol or drug abuse patient.[facility] FoundationIn the event this information is protected by the Federal Confidentiality of Alcohol and Drug Abuse Patient Records regulations: The Federal rules restrict any use of the information to criminally investigate or prosecute any alcohol or drug abuse patient.[facility] FoundationIn the event this information is protected by the Federal Confidentiality of Alcohol and Drug Abuse Patient Records regulations: The Federal rules restrict any use of the information to criminally investigate or prosecute any alcohol or drug abuse patient.[facility] FoundationIn the event this information is protected by the Federal Confidentiality of Alcohol and Drug Abuse Patient Records regulations: The Federal rules restrict any use of the information to criminally investigate or prosecute any alcohol or drug abuse patient.[facility] FoundationIn the event this information is protected by the Federal Confidentiality of Alcohol and Drug Abuse Patient Records regulations: The Federal rules restrict any use of the information to criminally investigate or prosecute any alcohol or drug abuse patient.[facility] FoundationIn the event this information is protected by the Federal Confidentiality of Alcohol and Drug Abuse Patient Records regulations: The Federal rules restrict any use of the information to criminally investigate or prosecute any alcohol or drug abuse patient.[facility] FoundationIn the event this information is protected by the Federal Confidentiality of Alcohol and Drug Abuse Patient Records regulations: The Federal rules restrict any use of the information to criminally investigate or prosecute any alcohol or drug abuse patient.[facility] FoundationIn the event this information is protected by the Federal Confidentiality of Alcohol and Drug Abuse Patient Records regulations: The Federal rules restrict any use of the information to criminally investigate or prosecute any alcohol or drug abuse patient.[facility] FoundationIn the event this information is protected by the Federal Confidentiality of Alcohol and Drug Abuse Patient Records regulations: The Federal rules restrict any use of the information to criminally investigate or prosecute any alcohol or drug abuse patient.[facility] FoundationIn the event this information is protected by the Federal Confidentiality of Alcohol and Drug Abuse Patient Records regulations: The Federal rules restrict any use of the information to criminally investigate or prosecute any alcohol or drug abuse patient.[facility] FoundationIn the event this information is protected by the Federal Confidentiality of Alcohol and Drug Abuse Patient Records regulations: The Federal rules restrict any use of the information to criminally investigate or prosecute any alcohol or drug abuse patient.[facility] FoundationIn the event this information is protected by the Federal Confidentiality of Alcohol and Drug Abuse Patient Records regulations: The Federal rules restrict any use of the information to criminally investigate or prosecute any alcohol or drug abuse patient.[facility] FoundationIn the event this information is protected by the Federal Confidentiality of Alcohol and Drug Abuse Patient Records regulations: The Federal rules restrict any use of the information to criminally investigate or prosecute any alcohol or drug abuse patient.[facility] FoundationIn the event this information is protected by the Federal Confidentiality of Alcohol and Drug Abuse Patient Records regulations: The Federal rules restrict any use of the information to criminally investigate or prosecute any alcohol or drug abuse patient.[facility] FoundationIn the event this information is protected by the Federal Confidentiality of Alcohol and Drug Abuse Patient Records regulations: The Federal rules restrict any use of the information to criminally investigate or prosecute any alcohol or drug abuse patient.[facility] FoundationIn the event this information is protected by the Federal Confidentiality of Alcohol and Drug Abuse Patient Records regulations: The Federal rules restrict any use of the information to criminally investigate or prosecute any alcohol or drug abuse patient.[facility] FoundationIn the event this information is protected by the Federal Confidentiality of Alcohol and Drug Abuse Patient Records regulations: The Federal rules restrict any use of the information to criminally investigate or prosecute any alcohol or drug abuse patient.[facility] FoundationIn the event this information is protected by the Federal Confidentiality of Alcohol and Drug Abuse Patient Records regulations: The Federal rules restrict any use of the information to criminally investigate or prosecute any alcohol or drug abuse patient.[facility] FoundationIn the event this information is protected by the Federal Confidentiality of Alcohol and Drug Abuse Patient Records regulations: The Federal rules restrict any use of the information to criminally investigate or prosecute any alcohol or drug abuse patient.[facility] FoundationIn the event this information is protected by the Federal Confidentiality of Alcohol and Drug Abuse Patient Records regulations: The Federal rules restrict any use of the information to criminally investigate or prosecute any alcohol or drug abuse patient.[facility] FoundationIn the event this information is protected by the Federal Confidentiality of Alcohol and Drug Abuse Patient Records regulations: The Federal rules restrict any use of the information to criminally investigate or prosecute any alcohol or drug abuse patient.[facility] FoundationIn the event this information is protected by the Federal Confidentiality of Alcohol and Drug Abuse Patient Records regulations: The Federal rules restrict any use of the information to criminally investigate or prosecute any alcohol or drug abuse patient.[facility] FoundationIn the event this information is protected by the Federal Confidentiality of Alcohol and Drug Abuse Patient Records regulations: The Federal rules restrict any use of the information to criminally investigate or prosecute any alcohol or drug abuse patient.[facility] FoundationIn the event this information is protected by the Federal Confidentiality of Alcohol and Drug Abuse Patient Records regulations: The Federal rules restrict any use of the information to criminally investigate or prosecute any alcohol or drug abuse patient.[facility] FoundationIn the event this information is protected by the Federal Confidentiality of Alcohol and Drug Abuse Patient Records regulations: The Federal rules restrict any use of the information to criminally investigate or prosecute any alcohol or drug abuse patient.[facility] FoundationIn the event this information is protected by the Federal Confidentiality of Alcohol and Drug Abuse Patient Records regulations: The Federal rules restrict any use of the information to criminally investigate or prosecute any alcohol or drug abuse patient.[facility] FoundationIn the event this information is protected by the Federal Confidentiality of Alcohol and Drug Abuse Patient Records regulations: The Federal rules restrict any use of the information to criminally investigate or prosecute any alcohol or drug abuse patient.[facility] FoundationIn the event this information is protected by the Federal Confidentiality of Alcohol and Drug Abuse Patient Records regulations: The Federal rules restrict any use of the information to criminally investigate or prosecute any alcohol or drug abuse patient.[facility] FoundationIn the event this information is protected by the Federal Confidentiality of Alcohol and Drug Abuse Patient Records regulations: The Federal rules restrict any use of the information to criminally investigate or prosecute any alcohol or drug abuse patient.[facility] FoundationIn the event this information is protected by the Federal Confidentiality of Alcohol and Drug Abuse Patient Records regulations: The Federal rules restrict any use of the information to criminally investigate or prosecute any alcohol or drug abuse patient.[facility] FoundationIn the event this information is protected by the Federal Confidentiality of Alcohol and Drug Abuse Patient Records regulations: The Federal rules restrict any use of the information to criminally investigate or prosecute any alcohol or drug abuse patient.[facility] FoundationIn the event this information is protected by the Federal Confidentiality of Alcohol and Drug Abuse Patient Records regulations: The Federal rules restrict any use of the information to criminally investigate or prosecute any alcohol or drug abuse patient.[facility] FoundationIn the event this information is protected by the Federal Confidentiality of Alcohol and Drug Abuse Patient Records regulations: The Federal rules restrict any use of the information to criminally investigate or prosecute any alcohol or drug abuse patient.[facility] FoundationIn the event this information is protected by the Federal Confidentiality of Alcohol and Drug Abuse Patient Records regulations: The Federal rules restrict any use of the information to criminally investigate or prosecute any alcohol or drug abuse patient.[facility] FoundationIn the event this information is protected by the Federal Confidentiality of Alcohol and Drug Abuse Patient Records regulations: The Federal rules restrict any use of the information to criminally investigate or prosecute any alcohol or drug abuse patient.[facility] FoundationIn the event this information is protected by the Federal Confidentiality of Alcohol and Drug Abuse Patient Records regulations: The Federal rules restrict any use of the information to criminally investigate or prosecute any alcohol or drug abuse patient.[facility] FoundationIn the event this information is protected by the Federal Confidentiality of Alcohol and Drug Abuse Patient Records regulations: The Federal rules restrict any use of the information to criminally investigate or prosecute any alcohol or drug abuse patient.[facility] FoundationIn the event this information is protected by the Federal Confidentiality of Alcohol and Drug Abuse Patient Records regulations: The Federal rules restrict any use of the information to criminally investigate or prosecute any alcohol or drug abuse patient.[facility] FoundationIn the event this information is protected by the Federal Confidentiality of Alcohol and Drug Abuse Patient Records regulations: The Federal rules restrict any use of the information to criminally investigate or prosecute any alcohol or drug abuse patient.[facility] FoundationIn the event this information is protected by the Federal Confidentiality of Alcohol and Drug Abuse Patient Records regulations: The Federal rules restrict any use of the information to criminally investigate or prosecute any alcohol or drug abuse patient.[facility] FoundationIn the event this information is protected by the Federal Confidentiality of Alcohol and Drug Abuse Patient Records regulations: The Federal rules restrict any use of the information to criminally investigate or prosecute any alcohol or drug abuse patient.[facility] FoundationIn the event this information is protected by the Federal Confidentiality of Alcohol and Drug Abuse Patient Records regulations: The Federal rules restrict any use of the information to criminally investigate or prosecute any alcohol or drug abuse patient.[facility] FoundationIn the event this information is protected by the Federal Confidentiality of Alcohol and Drug Abuse Patient Records regulations: The Federal rules restrict any use of the information to criminally investigate or prosecute any alcohol or drug abuse patient.[facility] FoundationIn the event this information is protected by the Federal Confidentiality of Alcohol and Drug Abuse Patient Records regulations: The Federal rules restrict any use of the information to criminally investigate or prosecute any alcohol or drug abuse patient.[facility] FoundationIn the event this information is protected by the Federal Confidentiality of Alcohol and Drug Abuse Patient Records regulations: The Federal rules restrict any use of the information to criminally investigate or prosecute any alcohol or drug abuse patient.[facility] FoundationIn the event this information is protected by the Federal Confidentiality of Alcohol and Drug Abuse Patient Records regulations: The Federal rules restrict any use of the information to criminally investigate or prosecute any alcohol or drug abuse patient.[facility] FoundationIn the event this information is protected by the Federal Confidentiality of Alcohol and Drug Abuse Patient Records regulations: The Federal rules restrict any use of the information to criminally investigate or prosecute any alcohol or drug abuse patient.[facility] FoundationIn the event this information is protected by the Federal Confidentiality of Alcohol and Drug Abuse Patient Records regulations: The Federal rules restrict any use of the information to criminally investigate or prosecute any alcohol or drug abuse patient.[facility] FoundationIn the event this information is protected by the Federal Confidentiality of Alcohol and Drug Abuse Patient Records regulations: The Federal rules restrict any use of the information to criminally investigate or prosecute any alcohol or drug abuse patient.[facility] FoundationIn the event this information is protected by the Federal Confidentiality of Alcohol and Drug Abuse Patient Records regulations: The Federal rules restrict any use of the information to criminally investigate or prosecute any alcohol or drug abuse patient.[facility] FoundationIn the event this information is protected by the Federal Confidentiality of Alcohol and Drug Abuse Patient Records regulations: The Federal rules restrict any use of the information to criminally investigate or prosecute any alcohol or drug abuse patient.[facility] FoundationIn the event this information is protected by the Federal Confidentiality of Alcohol and Drug Abuse Patient Records regulations: The Federal rules restrict any use of the information to criminally investigate or prosecute any alcohol or drug abuse patient.[facility] FoundationIn the event this information is protected by the Federal Confidentiality of Alcohol and Drug Abuse Patient Records regulations: The Federal rules restrict any use of the information to criminally investigate or prosecute any alcohol or drug abuse patient.[facility] FoundationIn the event this information is protected by the Federal Confidentiality of Alcohol and Drug Abuse Patient Records regulations: The Federal rules restrict any use of the information to criminally investigate or prosecute any alcohol or drug abuse patient.[facility] FoundationIn the event this information is protected by the Federal Confidentiality of Alcohol and Drug Abuse Patient Records regulations: The Federal rules restrict any use of the information to criminally investigate or prosecute any alcohol or drug abuse patient.[facility] FoundationIn the event this information is protected by the Federal Confidentiality of Alcohol and Drug Abuse Patient Records regulations: The Federal rules restrict any use of the information to criminally investigate or prosecute any alcohol or drug abuse patient.[facility] FoundationIn the event this information is protected by the Federal Confidentiality of Alcohol and Drug Abuse Patient Records regulations: The Federal rules restrict any use of the information to criminally investigate or prosecute any alcohol or drug abuse patient.[facility] FoundationIn the event this information is protected by the Federal Confidentiality of Alcohol and Drug Abuse Patient Records regulations: The Federal rules restrict any use of the information to criminally investigate or prosecute any alcohol or drug abuse patient.[facility] FoundationIn the event this information is protected by the Federal Confidentiality of Alcohol and Drug Abuse Patient Records regulations: The Federal rules restrict any use of the information to criminally investigate or prosecute any alcohol or drug abuse patient.[facility] FoundationIn the event this information is protected by the Federal Confidentiality of Alcohol and Drug Abuse Patient Records regulations: The Federal rules restrict any use of the information to criminally investigate or prosecute any alcohol or drug abuse patient.[facility] FoundationIn the event this information is protected by the Federal Confidentiality of Alcohol and Drug Abuse Patient Records regulations: The Federal rules restrict any use of the information to criminally investigate or prosecute any alcohol or drug abuse patient.[facility] FoundationIn the event this information is protected by the Federal Confidentiality of Alcohol and Drug Abuse Patient Records regulations: The Federal rules restrict any use of the information to criminally investigate or prosecute any alcohol or drug abuse patient.[facility] FoundationIn the event this information is protected by the Federal Confidentiality of Alcohol and Drug Abuse Patient Records regulations: The Federal rules restrict any use of the information to criminally investigate or prosecute any alcohol or drug abuse patient.[facility] FoundationIn the event this information is protected by the Federal Confidentiality of Alcohol and Drug Abuse Patient Records regulations: The Federal rules restrict any use of the information to criminally investigate or prosecute any alcohol or drug abuse patient.[facility] FoundationIn the event this information is protected by the Federal Confidentiality of Alcohol and Drug Abuse Patient Records regulations: The Federal rules restrict any use of the information to criminally investigate or prosecute any alcohol or drug abuse patient.[facility] FoundationIn the event this information is protected by the Federal Confidentiality of Alcohol and Drug Abuse Patient Records regulations: The Federal rules restrict any use of the information to criminally investigate or prosecute any alcohol or drug abuse patient.[facility] FoundationIn the event this information is protected by the Federal Confidentiality of Alcohol and Drug Abuse Patient Records regulations: The Federal rules restrict any use of the information to criminally investigate or prosecute any alcohol or drug abuse patient.[facility] FoundationIn the event this information is protected by the Federal Confidentiality of Alcohol and Drug Abuse Patient Records regulations: The Federal rules restrict any use of the information to criminally investigate or prosecute any alcohol or drug abuse patient.[facility] FoundationIn the event this information is protected by the Federal Confidentiality of Alcohol and Drug Abuse Patient Records regulations: The Federal rules restrict any use of the information to criminally investigate or prosecute any alcohol or drug abuse patient.[facility] FoundationIn the event this information is protected by the Federal Confidentiality of Alcohol and Drug Abuse Patient Records regulations: The Federal rules restrict any use of the information to criminally investigate or prosecute any alcohol or drug abuse patient.[facility] FoundationIn the event this information is protected by the Federal Confidentiality of Alcohol and Drug Abuse Patient Records regulations: The Federal rules restrict any use of the information to criminally investigate or prosecute any alcohol or drug abuse patient.[facility] Reason for Visit (unrecogniz ed section and content) Reason Onset Date Comments Refill Request 01/14/2022 SEE RX NOTES Reason Comments F/U 3 Month Reason Comments Results Reason Comments Patient Request Reason Comments medication instructions Reason Comments Medication Question Reason Comments Orders Reason Comments insurance requests change insulin Reason Comments Patient Update Medication Request Reason Comments Diabetes Reason Comments Medication Problem Reason Comments Insurance Authorization Freestyle Bao Reason Comments Patient Update Reason Onset Date Comments Refill Request 05/01/2022 Reason Onset Date Comments Refill Request 06/05/2022 Reason Comments Missed Appointment Reason Comments Erroneous encounter-disregard Reason Comments Appointment patient past due for follow up- no show on 06/18/22 Reason Onset Date Comments Refill Request 2022 Reason Comments Forms DM Supplies Reason Comments Appointment Reason Comments Medication Problem Patient requesting a ll RX's for medications and diabetic supplies be sent to [facility] in [place]. Reason Onset Date Comments Refill Request 07/24/2022 Reason Comments Consult Colonoscopy Reason Onset Date Comments Refill Request 07/05/2022 Refill Request 08/16/2022 Reason Onset Date Comments Refill Request 08/27/2022 Reason Onset Date Comments Refill Request 10/04/2022 Reason Comments Prescription Clarification Reason Comments Results No answer and VM not set up. [facility] message sent to request patient call in for results on Lab and xray. Reason Comments Hospital Follow Up Reason Comments Diabetes Type 2 diabetes monse itus with diabetic polyneuropathy, with long-term current use of insulin (HCC) Reason Comments Established Patient Follow Up Diabetic Foot Care Pain Reason Comments Recheck 4 week follow up Reason Onset Date Comments Refill Request 11/27/2022 Reason Comments Refill Request Reason Comments Medication Problem Reason Onset Date Comments Refill Request 12/31/2022 Reason Onset Date Comments Transition Of Care 01/02/2023 TCM Pharmacy- Hospital discharge 01/01/23 Reason Onset Date Comments Transition Of Care 01/02/2023 TCM initial o keshawn-dc'd from [facility] 01/01/23 Reason Comments Missed Appointment Pharmacy visit [facility] Reason Comments Medication Request Reason Onset Date Comments Transition Of Care 01/14/2023 TCM follow-up readmitted to hospital Reason Onset Date Comments Transition Of Care 01/17/2023 TCM Pharmacy- Hospital discharge 01/16/23 Reason Comments Alf Reason Onset Date Comments Transition Of Care 01/28/2023 TCM follow up Reason Onset Date Comments Refill Request 02/03/[address] Reason [address] [facility] PT Order Request Reason Comments Home Care MD to follow Reason Comments Hospital F/U Reason Comments Fax last Office Vist Notes Reason Onset Date Comments Transition Of Care 02/21/2023 TCM Pharmacy- Hospital discharge 02/20/23 Reason Onset Date Comments Transition Of Care 02/21/2023 TCM Initial A [facility] Hospital Discharge 02/20/23 Specialty Diagnoses / Procedures Referred By Aarti coulter Referred To Contact [facility] Home Care [address] [place] [id number] Referral ID Status Reason Start Date Expiration Date Visits Re quested Visits Authorized [id number] 1 1 Reason Comments Home Care Confirmation Call Reason Comments Home Care Reason Comments Home Care Request for home hea lt aide referral. Reason Comments Hospital F/U [facility] dx: pneumonia Di scharged on 03/05/2023ompleted prednisone Referral ID Status Reason Start Date Expiration Date Visits Re quested Visits Authorized [id number] 1 1 Reason Comments Stage II pressure sore Reason Onset Date Comments Refill Request 03/28/2023 Reason Onset Date Comments Refill Request 04/25/2023 Reason Comments Home Care Pt d/c today Reason Onset Date Comments Opened In Error 05/02/2023 Reason Comments DME Reason Comments Request Reason Onset Date Comments Refill Request 05/23/2023 Reason Onset Date Comments Opened In Error 05/29/2023 Reason Onset Date Comments Transition Of Care 06/06/2023 TCM Initial O utreach: [facility] [place] 05/31/23, KERRY Reason Onset Date Comments Opened In Error 06/25/2023 Reason Comments Insurance Authorization Test strips/lanc ets Reason Onset Date Comments Refill Request 06/17/2023 Reason Onset Date Comments Refill Request 07/23/2023 Reason Onset Date Comments Refill Request 07/29/2023 Reason Comments Opened In Error Reason Onset Date Comments Refill Request 08/01/2023 Reason Comments Home [facility] care change of insurance Care Teams (unrecognized sec tion and content) Paralegal Supervisor Relationship Specialty Start Date End Date Panfilo Oreilly MD [address] [place], [place] [phone] PCP - General Family Practice 02/12/17 Shreya Mccray Endocrinology 07/23/18 [place] [address] [place] [address] Specialty Mine Motor Engineer Pulmonary Disease 12/23/18 Brandee Cotter (Entry Manager) [address] [place], [place] [phone] Consulting Endocrinology 11/09/19 [place] [address] [place] [address] Consulting Pulmonary Disease 11/12/[address] [facility] [address] [place] [address] Pharmacist Pharmacy 09/06/21 [place] 12/17/17 [facility] Wound [facility] 07/23/18 [place] [facility] Patients 06/20/20 Paralegal Supervisor Relationship Specialty Start Date End Date Panfilo Oreilly MD [address] [place] [address] PCP - General Family Practice 02/12/17 Shreya Mccray Endocrinology 07/23/18 [place] Dumont [address] [place] [address] Specialty Mine Motor Engineer Pulmonary Disease 12/23/18 Brandee Cotter ([facility]) [address], [place] [id number] Consulting Endocrinology 11/09/19 [place] Dumont [address] [place] [address] Consulting Pulmonary Disease 11/12/19 [facility] [address] [place] [address] Pharmacist Pharmacy 09/06/21 [facility] 12/17/17 [facility] 07/23/18 [facility] 06/20/20 Paralegal Supervisor Relationship Specialty Start Date End Date Panfilo Oreilly MD [address] [place] [address] PCP - General Family Practice 02/12/17 Shreya Mccray Endocrinology 07/23/18 [place] Dumont [address] [place] [address] Specialty Mine Motor Engineer Pulmonary Disease 12/23/18 Brandee Cotter (Entry Manager) [address] [place] [address] Consulting Endocrinology 11/09/19 [place] Dumont [address] [address] Consulting Pulmonary Disease 11/12/19 [facility] [address] [place] [address] Pharmacist Pharmacy 09/06/21 [facility] 12/17/17 [facility] W[facility] Center 07/23/18 [facility] Patients 06/20/20 Paralegal Supervisor Relationship Specialty Start Date End Date Panfilo Oreilly MD [address] [place] [address] PCP - General Family Practice 02/12/17 Shreya Mccray Endocrinology 07/23/18 [place] Dum[place] [address] [place] [address] Specialty Mine Motor Engineer Pulmonary Disease 12/23/18 Brandee Cotter (Entry Manager) [address] [place] [address] Consulting Endocrinology 11/09/19 [place] Dum[place] [address] [place] [address] Consulting Pulmonary Disease 11/12/[address] [facility] [address] [place] [address] Pharmacist Pharmacy 09/06/21 [facility] 12/17/17 [facility] 07/23/18 [place] [facility] 06/20/20 Paralegal Supervisor Relationship Specialty Start Date End Date Panfilo Oreilly MD [address] [place] [address] PCP - General Family Practice 02/12/17 Shreya Mccray Endocrinology 07/23/18 [place] [address] [place] [address] Specialty Mine Motor Engineer Pulmonary Disease 12/23/18 Brandee Cotter (Entry Manager) [address] [place] [address] Consulting Endocrinology 11/09/19 [place] [address] [place] [address] Consulting Pulmonary Disease 11/12/19 Robert Sanchez, [facility] [address] [place] [address] Pharmacist Pharmacy 09/06/21 [facility] 12/17/17 [facility] 07/23/18 [place] [facility] 06/20/20 Paralegal Supervisor Relationship Specialty Start Date End Date Panfilo Oreilly MD [address] [place] [address] PCP - General Family Practice 02/12/17 Shreya Mccray Endocrinology 07/23/18 [place] Dum[place] [address] [place] [place] [address] Specialty Mine Motor Engineer Pulmonary Disease 12/23/18 Brandee Cotter (Entry Manager) [address] [place] [address] Consulting Endocrinology 11/09/19 [place] Dum[place] [address] [place] [address] Consulting Pulmonary Disease 11/12/[address] [facility] [address] [facility] [place] [address] Pharmacist Pharmacy 09/06/21 [facility] 12/17/17 [facility] W[facility] 07/23/18 [facility] Patients 06/20/20 Paralegal Supervisor Relationship Specialty Start Date End Date Panfilo Oreilly MD [address] [place] [address] PCP - General Family Practice 02/12/17 Shreya Mccray Endocrinology 07/23/18 [place] [address] [place] [address] Specialty Mine Motor Engineer Pulmonary Disease 12/23/18 Brandee Cotter (Entry Manager) [address] [place] [address] Consulting Endocrinology 11/09/19 [place] [address] [place] [address] Consulting Pulmonary Disease 11/12/[address] [facility] [address] [place] [address] Pharmacist Pharmacy 09/06/21 [facility] 12/17/17 [facility] 07/23/18 [place] [facility] 06/20/20 Paralegal Supervisor Relationship Specialty Start Date End Date Panfilo Oreilly MD [address] [place] [address] PCP - General Family Practice 02/12/17 Shreya Mccray Endocrinology 07/23/18 [place] [address] [place] [address] Specialty Mine Motor Engineer Pulmonary Disease 12/23/18 Brandee Cotter (Entry Manager) [address] [place] [address] Consulting Endocrinology 11/09/19 [place] Dum[place] [address] [place] [address] Consulting Pulmonary Disease 11/12/[address] [facility] [address] [place] [address] Pharmacist Pharmacy 09/06/21 [facility] 12/17/17 [facility] 07/23/18 [place] [facility] 06/20/20 Paralegal Supervisor Relationship Specialty Start Date End Date Panfilo Oreilly MD [address] [place] [address] PCP - General Family Practice 02/12/17 Shreya Mccray Endocrinology 07/23/18 [place] [address] [place] [address] Specialty Mine Motor Engineer Pulmonary Disease 12/23/18 Brandee Cotter (Entry Manager) [address] [place] [address] Consulting Endocrinology 11/09/19 [place] [address] [place] [address] Consulting Pulmonary Disease 11/12/19 [facility] [address] [place] [address] Pharmacist Pharmacy 09/06/21 [facility] 12/17/17 [facility] 07/23/18 [place] Patients 06/20/20 Paralegal Supervisor Relationship Specialty Start Date End Date Panfilo Oreilly MD [address] [place] [address] PCP - General Family Practice 02/12/17 Shreya Mccray Endocrinology 07/23/18 [place] [address] [place] [address] Specialty Mine Motor Engineer Pulmonary Disease 12/23/18 Brandee Cotter (Entry Manager) [address] [place] [address] Consulting Endocrinology 11/09/19 [place] [address] [place] [address] Consulting Pulmonary Disease 11/12/19 [facility] [address] [facility] [address] Pharmacist Pharmacy 09/06/21 [facility] 12/17/17 [facility] 07/23/18 [place] [facility] 06/20/20 Paralegal Supervisor Relationship Specialty Start Date End Date Panfilo Oreilly MD [address] [facility] [place] [address] PCP - General Family Practice 02/12/17 Shreya Mccray Endocrinology 07/23/18 [place] [address] [place] [address] Specialty Mine Motor Engineer Pulmonary Disease 12/23/18 Brandee Cotter (Entry Manager) [address], [place] [id number] Consulting Endocrinology 11/09/19 [place] [address] [place] [address] Consulting Pulmonary Disease 11/12/19 [facility] [address] [facility] [address] Pharmacist Pharmacy 09/06/21 [facility] 12/17/17 [facility] 07/23/18 [place] [facility] 06/20/20 Paralegal Supervisor Relationship Specialty [place] [address] [facility] [place] [address] PCP - General Family Practice 02/12/17 Shreya Mccray Endocrinology 07/23/18 [place] [address] [place] [address] Specialty Mine Motor Engineer Pulmonary Disease 12/23/18 Brandee Cotter (Entry Manager) [address] [place] [address] Consulting Endocrinology 11/09/19 [place] [address] [place] [address] Consulting Pulmonary Disease 11/12/19 Robert Sanchez, [facility] [address] [place] [address] Pharmacist Pharmacy 09/06/21 [facility] 12/17/17 [facility] W[facility] 07/23/18 [place] Patients 06/20/20 Paralegal Supervisor Relationship Specialty Start Date End Date Panfilo Oreilly MD [address] [place] [address] PCP - General Family Practice 02/12/17 Shreya Mccray Endocrinology 07/23/18 [place] [address] [place] [address] Specialty Mine Motor Engineer Pulmonary Disease 12/23/18 Brandee Cotter (Entry Manager) [address] [place] [address] Consulting Endocrinology 11/09/19 [place] [address] [place] [address] Consulting Pulmonary Disease 11/12/19 [facility] [address] [facility] [place] [address] Pharmacist Pharmacy 09/06/21 [facility] 12/17/17 [facility] 07/23/18 [place] [facility] 06/20/20 Paralegal Supervisor Relationship Specialty Start [place]fil[place]illy [place] [address] [facility] [place] [address] PCP - General Family Practice 02/12/17 Shreya Mccray Endocrinology 07/23/18 [place] [address] [place] [address] Specialty Mine Motor Engineer Pulmonary Disease 12/23/18 Brandee Cotter (Entry Manager) [address], [place] [id number] Consulting Endocrinology 11/09/19 [place] [address] [place] [address] Consulting Pulmonary Disease 11/12/19 Robert Sanchez, [facility] [address] [facility] [place] [address] Pharmacist Pharmacy 09/06/21 [facility] 12/17/17 [facility] 07/23/18 [place] [facility] 06/20/20 Paralegal Supervisor Relationship Specialty Start Date End Date Panfilo Oreilly MD [address] [place], [place] [id number] PCP - General Family Practice 02/12/17 Shreya Mccray Endocrinology 07/23/18 [place] [address] [place] [address] Specialty Mine Motor Engineer Pulmonary Disease 12/23/18 Brandee Cotter (Entry Manager) [address] [place] [address] Consulting Endocrinology 11/09/19 [place] [address] [place] [address] Consulting Pulmonary Disease 11/12/19 [facility] [address] [place] [address] Pharmacist Pharmacy 09/06/21 [facility] 12/17/17 [facility] 07/23/18 [place] Patients 06/20/20 Paralegal Supervisor Relationship Specialty Start Date End Date Panfilo Oreilly MD [address] [place] [address] PCP - General Family Practice 02/12/17 Shreya Mccray Endocrinology 07/23/18 [place] [address] [place] [address] Specialty Mine Motor Engineer Pulmonary Disease 12/23/18 Brandee Cotter (Entry Manager) [address] [place] [address] Consulting Endocrinology 11/09/19 [place] [address] [place] [address] Consulting Pulmonary Disease 11/12/19 [place] SpringsRobert ferraroSaint [facility] [address] [place] [address] Pharmacist Pharmacy 09/06/21 [facility] 12/17/17 [facility] W[facility] 07/23/18 [place] [facility] 06/20/20 Paralegal Supervisor Relationship Specialty Start Date End Date Panfilo Oreilly MD [address] [place] [address] PCP - General Family Practice 02/12/17 Shreya Mccray Endocrinology 07/23/18 [place] [address] [place] [address] Specialty Mine Motor Engineer Pulmonary Disease 12/23/18 Brandee Cotter (Entry Manager) [address] [place] [address] Consulting Endocrinology 11/09/19 [place] [address] [place] [address] Consulting Pulmonary Disease 11/12/19 [facility] [address] [facility] [place] [address] Pharmacist Pharmacy 09/06/21 [facility] 12/17/17 [facility] W[facility] 07/23/18 [place] [facility] 06/20/20 Paralegal Supervisor Relationship Specialty Start Date End Date Panfilo Oreilly MD [address] [place] [address] PCP - General Family Practice 02/12/17 Shreya Mccray MD Endocrinology 07/23/18 [place] [address] [place] [address] Specialty Mine Motor Engineer Pulmonary Disease 12/23/18 Brandee Cotter (Entry Manager) [address] [place] [address] Consulting Endocrinology 11/09/19 [place] [address] [place] [address] Consulting Pulmonary Disease 11/12/[address] [facility] [address] [place] [address] Pharmacist Pharmacy 09/06/21 [facility] 12/17/17 [facility] 07/23/18 [place] Patients 06/20/20 Paralegal Supervisor Relationship Specialty Start Date End Date Panfilo Oreilly MD [address] [place] [address] PCP - General Family Practice 02/12/17 Shreya Mccray MD Endocrinology 07/23/18 [place] [address] [place] [address] Specialty Mine Motor Engineer Pulmonary Disease 12/23/18 Brandee Cotter (Entry Manager) [address] [place] [address] Consulting Endocrinology 11/09/19 [place] [address] [place] [address] Consulting Pulmonary Disease 11/12/19 Robert [facility]Saint [facility] [address] [facility] [place] [address] Pharmacist Pharmacy 09/06/21 [facility] 12/17/17 [facility] 07/23/18 [place] [facility] 06/20/20 Paralegal Supervisor Relationship Specialty Start Date End Date Panfilo Oreilly MD [address] [facility] [place] [address] PCP - General Family Practice 02/12/17 Shreya Mccray MD Endocrinology 07/23/18 [place] [address] [place] [address] Specialty Mine Motor Engineer Pulmonary Disease 12/23/18 Brandee Cotter (Entry Manager) [address] [place] [address] Consulting Endocrinology 11/09/19 [place] [address] [place] [address] Consulting Pulmonary Disease 11/12/19 Robert [facility] [address] [facility] [place] [address] Pharmacist Pharmacy 09/06/21 [facility] 12/17/17 [facility] 07/23/18 [place] [facility] 06/20/20 Paralegal Supervisor Relationship Specialty Start Date End Date Panfilo Oreilly MD [address] [place] [address] PCP - General Family Practice 02/12/17 Shreya Mccray MD Endocrinology 07/23/18 [place] [address] [place] [address] Specialty Mine Motor Engineer Pulmonary Disease 12/23/18 Brandee Cotter (Entry Manager) [address], [place] [id number] Consulting Endocrinology 11/09/19 [place] [address] [place] [address] Consulting Pulmonary Disease 11/12/19 [facility] [address] [place] [address] Pharmacist Pharmacy 09/06/21 [facility] 12/17/17 [facility] 07/23/18 [place] Patients 06/20/20 Paralegal Supervisor Relationship Specialty Start Date End Date Panfilo Oreilly MD [address] [place] [address] PCP - General Family Practice 02/12/17 Shreya Mccray MD Endocrinology 07/23/18 [place] [address] [place] [address] Specialty Mine Motor Engineer Pulmonary Disease 12/23/18 Brandee Cotter (Entry Manager) [address] [place] [address] Consulting Endocrinology 11/09/19 [place] [address] [place] [address] Consulting Pulmonary Disease 11/12/19 Robert [facility] [address] [place] [address] Pharmacist Pharmacy 09/06/21 [facility] 12/17/17 [facility] 07/23/18 [place] [facility] 06/20/20 Paralegal Supervisor Relationship Specialty Start Date End Date Panfilo Oreilly MD [address] [place] [address] PCP - General Family Practice 02/12/17 Shreya Mccray MD Endocrinology 07/23/18 [place] [address] [place] [address] Specialty Mine Motor Engineer Pulmonary Disease 12/23/18 Brandee Cotter (Entry Manager) [address] [place] [address] Consulting Endocrinology 11/09/19 [place] [address] [place] [address] Consulting Pulmonary Disease 11/12/19 Robert Sanchez, [facility] [address] [place] [address] Pharmacist Pharmacy 09/06/21 [facility] 12/17/17 [facility] 07/23/18 [place] [facility] 06/20/20 Paralegal Supervisor Relationship Specialty Start Date End Date Panfilo Oreilly MD [address] [place] [address] PCP - General Family Practice 02/12/17 Shreya Mccray MD Endocrinology 07/23/18 [place] [address] [place] [address] Specialty Mine Motor Engineer Pulmonary Disease 12/23/18 Brandee Cotter (Entry Manager) [address], [place] [id number] Consulting Endocrinology 11/09/19 [place] [address] [place] [address] Consulting Pulmonary Disease 11/12/19 Robert Sanchez, [facility] [address] [place] [address] Pharmacist Pharmacy 09/06/21 [facility] 12/17/17 [facility] 07/23/18 [place] [facility] 06/20/20 Paralegal Supervisor Relationship Specialty Start Date End Date Panfilo Oreilly MD [address] [place] [address] PCP - General Family Practice 02/12/17 Shreya Mccray MD Endocrinology 07/23/18 [place] [address] [place] [address] Specialty Mine Motor Engineer Pulmonary Disease 12/23/18 Brandee Cotter (Entry Manager) [address], [place] [id number] Consulting Endocrinology 11/09/19 [place] [address] [place] [address] Consulting Pulmonary Disease 11/12/19 Robert [facility] [address] [place] [address] Pharmacist Pharmacy 09/06/21 [facility] 12/17/17 [facility] W[facility] 07/23/18 [facility] Patients 06/20/20 Paralegal Supervisor Relationship Specialty Start Date End Date Panfilo Oreilly MD [address] [place] [address] PCP - General Family Medicine 02/12/17 Shreya Mccray MD Endocrinology 07/23/18 [place] [address] [place] [address] Specialty Mine Motor Engineer Pulmonary Disease 12/23/18 Brandee Cotter (Entry Manager) [address] [place] [address] Consulting Endocrinology 11/09/19 [place] [address] [place] [address] Consulting Pulmonary Disease 11/12/19 Robert [facility] [address] [place] [address] Pharmacist Pharmacy 09/06/21 [facility] 12/17/17 [facility] 07/23/18 [place] [facility] 06/20/20 Paralegal Supervisor Relationship Specialty Start Date End Date Panfilo Oreilly MD [address] [facility], [place] [address] PCP - General Family Medicine 02/12/17 Shreya Mccray MD Endocrinology 07/23/18 [place] [address] [place] [address] Specialty Mine Motor Engineer Pulmonary Disease 12/23/18 Brandee Cotter ([facility]) [address], [place] [id number] Consulting Endocrinology 11/09/19 [place] [address] [place] [address] Consulting Pulmonary Disease 11/12/[address] [facility] [address] [place] [address] Pharmacist Pharmacy 09/06/21 [facility] 12/17/17 [facility] 07/23/18 [place] [facility] 06/20/20 Paralegal Supervisor Relationship Specialty Start Date End Date Panfilo Oreilly MD [address] [place] [address] PCP - General Family Medicine 02/12/17 Shreya Mccray MD Endocrinology 07/23/18 [place] [address] [place] [address] Specialty Mine Motor Engineer Pulmonary Disease 12/23/18 Brandee Cotter (Entry Manager) [address] [place] [address] Consulting Endocrinology 11/09/19 [place] [address] [place] [address] Consulting Pulmonary Disease 11/12/19 Robert [facility] [address] [place] [address] Pharmacist Pharmacy 09/06/21 [facility] 12/17/17 [facility] 07/23/18 [place] Patients 06/20/20 Paralegal Supervisor Relationship Specialty Start Date End Date Panfilo Oreilly MD [address] [place] [address] PCP - General Family Medicine 02/12/17 Shreya Mccray MD Endocrinology 07/23/18 [place] [address] [place] [address] Specialty Mine Motor Engineer Pulmonary Disease 12/23/18 Brandee Cotter (Entry Manager) [address] [place] [address] Consulting Endocrinology 11/09/19 [place] [address] [place] [address] Consulting Pulmonary Disease 11/12/19 Robert [facility] [address] [place] [address] Pharmacist Pharmacy 09/06/21 [facility] 12/17/17 [facility] 07/23/18 [place] [facility] 06/20/20 Paralegal Supervisor Relationship Specialty Start Date End Date Panfilo Oreilly MD [address] [place], [place] [address] PCP - General Family Medicine 02/12/17 Shreya Mccray MD Endocrinology 07/23/18 [place] [address] [place] [address] Specialty Mine Motor Engineer Pulmonary Disease 12/23/18 Brandee Cotter (Entry Manager) [address], [place] [id number] Consulting Endocrinology 11/09/19 [place] [address] [place] [address] Consulting Pulmonary Disease 11/12/19 [facility] [address] [place] [address] Pharmacist Pharmacy 09/06/21 [facility] 12/17/17 [facility] 07/23/18 [place] [facility] 06/20/20 Paralegal Supervisor Relationship Specialty Start Date End Date Panfilo Oreilly MD [address] [place] [address] PCP - General Family Medicine 02/12/17 Shreya Mccray MD [address] [place] [address] Endocrinology 07/23/18 [place] [address] [place] [address] Specialty Mine Motor Engineer Pulmonary Disease 12/23/18 Brandee Cotter (Entry Manager) [address] [place] [address] Consulting Endocrinology 11/09/19 [place] [address] [place] [address] Consulting Pulmonary Disease 11/12/[address] [facility] [address] [place] [address] Pharmacist Pharmacy 09/06/21 [facility] 12/17/17 [facility] 07/23/18 [facility] Patients 06/20/20 Paralegal Supervisor Relationship Specialty Start Date End Date Panfilo Oreilly MD [address] [place] [address] PCP - General Family Medicine 02/12/17 Shreya Mccray MD [address] [place] [address] Endocrinology 07/23/18 [place] [address] [place] [address] Specialty Mine Motor Engineer Pulmonary Disease 12/23/18 Brandee Cotter (Entry Manager) [address] [place] [address] Consulting Endocrinology 11/09/19 [place] [address] [place] [address] Consulting Pulmonary Disease 11/12/[address] [facility] [address] [place] [address] Pharmacist Pharmacy 09/06/21 [facility] 12/17/17 [facility] W[facility] 07/23/18 [place] [facility] 06/20/20 Paralegal Supervisor Relationship Specialty Start Date End Date Panfilo Oreilly MD [address] [place] [address] PCP - General Family Medicine 02/12/17 Shreya Mccray MD [address] [place] [address] Endocrinology 07/23/18 [place] [address] [place] [address] Specialty Mine Motor Engineer Pulmonary Disease 12/23/18 Brandee Cotter (Entry Manager) [address] [place] [address] Consulting Endocrinology 11/09/19 [place] [address] [place] [address] Consulting Pulmonary Disease 11/12/[address] [facility] [address] [place] [address] Pharmacist Pharmacy 09/06/21 [facility] 12/17/17 [facility] W[facility] 07/23/18 [place] [facility] 06/20/20 Paralegal Supervisor Relationship Specialty Start Date End Date Panfilo Oreilly MD [address] [place] [address] PCP - General Family Medicine 02/12/17 Shreya Mccray MD [address] [place] [address] Endocrinology 07/23/18 [place] [address] [place] [address] Specialty Mine Motor Engineer Pulmonary Disease 12/23/18 Brandee Cotter (Entry Manager) [address] [place] [address] Consulting Endocrinology 11/09/19 [place] [address] [place] [address] Consulting Pulmonary Disease 11/12/19 Robert Sanchez, [facility] [address] [place] [address] Pharmacist Pharmacy 09/06/21 [facility] 12/17/17 [facility] W[facility] 07/23/18 [place] Patients 06/20/20 Paralegal Supervisor Relationship Specialty Start Date End Date Panfilo Oreilly MD [address] [place] [address] PCP - General Family Medicine 02/12/17 Sherya Mccray MD [address] [place] [address] Endocrinology 07/23/18 [place] [address] [place] [address] Specialty Mine Motor Engineer Pulmonary Disease 12/23/18 Brandee Cotter (Entry Manager) [address] [place] [address] Consulting Endocrinology 11/09/19 [place] [address] [place] [address] Consulting Pulmonary Disease 11/12/19 [facility] [address] [place] [address] Pharmacist Pharmacy 09/06/21 [facility] 12/17/17 [facility] W[facility] 07/23/18 [facility] 06/20/20 Paralegal Supervisor Relationship Specialty Start Date End Date Panfilo Oreilly MD [address] [place] [address] PCP - General Family Medicine 02/12/17 Shreya Mccray MD [address] [place] [address] Endocrinology 07/23/18 [place] Dumont [address] [place] [address] Specialty Mine Motor Engineer Pulmonary Disease 12/23/18 Brandee Cotter (Entry Manager) [address] [place] [address] Consulting Endocrinology 11/09/19 [place] [address] [place] [address] Consulting Pulmonary Disease 11/12/19 [facility] [address] [facility] [place] [address] Pharmacist Pharmacy 09/06/21 [facility] 12/17/17 [facility] Wound Center 07/23/18 [place] [facility] 06/20/20 Paralegal Supervisor Relationship Specialty Start Date End Date Panfilo Oreilly MD [address] [place] [address] PCP - General Family Medicine 02/12/17 Shreya Mccray MD [address] [facility] [place] [place] [address] Endocrinology 07/23/18 [place] [address] [place] [address] Specialty Mine Motor Engineer Pulmonary Disease 12/23/18 Brandee Cotter (Entry Manager) [address], [place] [id number] Consulting Endocrinology 11/09/19 [place] [address] [place] [address] Consulting Pulmonary Disease 11/12/19 Robert Sanchez, [facility] [address] [place] [address] Pharmacist Pharmacy 09/06/21 [facility] 12/17/17 [facility] Wound Center 07/23/18 [place] [facility] 06/20/20 Paralegal Supervisor Relationship Specialty Start Date End Date Panfilo Oreilly MD [address] [place] [address] PCP - General Family Medicine 02/12/17 Shreya Mccray MD [address] [facility] [place] [place] [address] Endocrinology 07/23/18 [place] [address] [place] [address] Specialty Mine Motor Engineer Pulmonary Disease 12/23/18 Brandee Cotter (Entry Manager) [address], [place] [id number] Consulting Endocrinology 11/09/19 [place] [address] [place], [place] [id number] Consulting Pulmonary Disease 11/12/19 Robert Sanchez, [facility] [address] [place], [place] [address] Pharmacist Pharmacy 09/06/21 [employer] 12/17/17 [facility] Wound Center 07/23/18 [place] [facility] 06/20/20 Team Status: Active Member Role Status Dates Dr. Tino Oreilly MD Family Provider Active Dr. Tino Oreilly MD Primary Care Provider Acti ve Team Status: Active Member Role Status Dates Dr. Tino Oreilly MD Primary Care Provider Acti ve Dr. Rupert Pitts DO Emergency Provider Active Dr. Mihai Chu MD Admit Provider, A ttending Provider, Other Provider Active Team Status: Active Member Role Status Dates Dr. Tino Oreilly MD Primary Care Provider Acti ve Dr. Rupert Pitts DO Emergency Provider Active Dr. Mihai Chu MD Admit Provider, Other Provider Active Dr. Shelbi Eubanks MD Attending Provider, Other Provider Active Team Status: Inactive Member Role Status Dates Dr. Tino Oreilly MD Primary Care Provider Acti ve Dr. Rupert Pitts DO Emergency Provider Active Dr. Mihai Chu MD Admit Provider, Other Provider Active Dr. Shelbi Eubanks MD Attending Provider Active Team Status: Active Member Role Status Dates Dr. Tino Oreilly MD Primary Care Provider Acti ve Patient Link Program Attending Provider Active Team Status: Inactive Member Role Status Dates Dr. Tino Oreilly MD Primary Care Provider, Attending Provider, Referring Provider Active Team Status: Inactive Member Role Status Dates Dr. Tino Oreilly MD Primary Care Provider Acti ve Dr. Rupert Pitts DO Attending Provider, Emergency Provider Active Team Status: Inactive Member Role Status Dates Dr. Tino Oreilly MD Primary Care Provider Acti ve Dr. Jozef Kaiser MD Emergency Provider Active Team Status: Active Member Role Status Dates Dr. Tino Oreilly MD Primary Care Provider Acti ve Dr. Irina Quintero MD Emergency Provider Active Dr. Chris Gill MD Admit Provider, Attending Pro vider Active Team Status: Active Member Role Status Dates Dr. Tino Oreilly MD Primary Care Provider Acti ve Dr. Irina Quintero MD Emergency Provider Active Dr. Chris Gill MD Admit Provider, Attending Provider, Other Provider Active Team Status: Active Member Role Status Dates Dr. Tino Oreilly MD Primary Care Provider Acti ve Dr. Irina Quintero MD Emergency Provider Active Dr. Chris Gill MD Admit Provider, Other Provide r Active Dr. Liam Wilkes MD Attending Provider, Other Provider Active Team Status: Inactive Member Role Status Dates Dr. Tino Oreilly MD Primary Care Provider Acti ve Dr. Irina Quintero MD Emergency Provider Active Dr. Chris Gill MD Admit Provider, Other Provide r Active Dr. Liam Wilkes MD Attending Provider Active Team Status: Inactive Member Role Status Dates Dr. Tnio Oreilly MD Primary Care Provider Acti ve Dr. Jozef Kaiser MD Attending Provider, Emergency Provi mame Active Paralegal Supervisor Relationship Specialty Start Date End Date Panfilo Oreilly MD [address] [place] [address] PCP - General Family Medicine 02/12/17 Shreya Mccray MD [address] [place] [address] Endocrinology 07/23/18 [place] [address] [place] [address] Specialty Mine Motor Engineer Pulmonary Disease 12/23/18 Brandee Cotter (Entry Manager) [address] [place] [address] Consulting Endocrinology 11/09/19 [place] [address] [place] [address] Consulting Pulmonary Disease 11/12/19 [facility] [address] [place] [address] Pharmacist Pharmacy 09/06/21 [employer] 12/17/17 [facility] Wound Center 07/23/18 [facility] Patients 06/20/20 Paralegal Supervisor Relationship Specialty Start Date End Date Panfilo Oreilly MD [address] [place] [address] PCP - General Family Medicine 02/12/17 Shreya Mccray MD [address] [place] [address] Endocrinology 07/23/18 [place] [address] [place] [address] Specialty Mine Motor Engineer Pulmonary Disease 12/23/18 Brandee Cotter (Entry Manager) [address] [place] [address] Consulting Endocrinology 11/09/19 [place] [address] [place] [address] Consulting Pulmonary Disease 11/12/19 [facility] [address] [facility] [place] [address] Pharmacist Pharmacy 09/06/21 [employer] 12/17/17 [facility] Wound Center 07/23/18 [place] [facility] 06/20/20 Paralegal Supervisor Relationship Specialty Start Date End Date Panfilo Oreilly MD [address] [place] [address] PCP - General Family Medicine 02/12/17 Shreya Mccray MD [address] [place] [address] Endocrinology 07/23/18 [place] [address] [place] [address] Specialty Mine Motor Engineer Pulmonary Disease 12/23/18 Brandee Cotter ([facility]) [address], [place] [id number] Consulting Endocrinology 11/09/19 [place] [address] [place] [address] Consulting Pulmonary Disease 11/12/[address] [facility] [address] [place] [address] Pharmacist Pharmacy 09/06/21 [facility] 12/17/17 [facility] Wound Center 07/23/18 [place] [facility] 06/20/20 Paralegal Supervisor Relationship Specialty Start Date End Date Panfilo Oreilly MD [address] [place] [address] PCP - General Family Medicine 02/12/17 Shreya Mccray MD [address] [place] [address] Endocrinology 07/23/18 [place] [address] [place] [address] Specialty Mine Motor Engineer Pulmonary Disease 12/23/18 Brandee Cotter (Entry Manager) [address] [place] [address] Consulting Endocrinology 11/09/19 [place] [address] [place] [address] Consulting Pulmonary Disease 11/12/[address] [facility] [address] [place] [address] Pharmacist Pharmacy 09/06/21 [facility] 12/17/17 [facility] Wound Center 07/23/18 [facility] Patients 06/20/20 Paralegal Supervisor Relationship Specialty Start Date End Date Panfilo Oreilly MD [address] [place] [address] PCP - General Family Medicine 02/12/17 Shreya Mccray MD [address] [facility] [place] [address] Endocrinology 07/23/18 [place] [address] [place] [address] Specialty Mine Motor Engineer Pulmonary Disease 12/23/18 Brandee Cotter (Entry Manager) [address] [place] [address] Consulting Endocrinology 11/09/19 [place] [address] [place] [address] Consulting Pulmonary Disease 11/12/[address] [facility] [address] [place] [address] Pharmacist Pharmacy 09/06/[address] [facility] [address] [place] [address] Transitional Care Pharmacist Pharmacy 01/02/23 02/01/23 Mimi Crowley, exhibition specialist Cake Inspector 01/01/23 01/29/23 [facility] 12/17/17 [facility] Wound Center 07/23/18 [place] [facility] 06/20/20 Paralegal Supervisor Relationship Specialty Start Date End Date Panfilo Oreilly MD [address] [place] [address] PCP - General Family Medicine 02/12/17 Shreya Mccray MD [address] [place] [address] Endocrinology 07/23/18 [place] [address] [place] [address] Specialty Mine Motor Engineer Pulmonary Disease 12/23/18 Brandee Cotter (Entry Manager) [address], [place] [id number] Consulting Endocrinology 11/09/19 [place] [address] [place] [address] Consulting Pulmonary Disease 11/12/19 Robert Sanchez, [facility] [address] [place] [address] Pharmacist Pharmacy 09/06/[address] [facility] [address] [place] [address] Transitional Care Pharmacist Pharmacy 01/02/23 02/01/23 Mimi Crowley, exhibition specialist Cake Inspector 01/01/23 01/29/23 [facility] 12/17/17 [facility] Wound Center 07/23/18 [place] [facility] 06/20/20 Paralegal Supervisor Relationship Specialty Start Date End Date Panfilo Oreilly MD [address] [place], [place] [id number] PCP - General Family Medicine 02/12/17 Shreya Mccray MD [address] [place] [address] Endocrinology 07/23/18 [place] [address] [place] [address] [place] [address] Specialty Mine Motor Engineer Pulmonary Disease 12/23/18 Brandee Cotter (Entry Manager) [address], [place] [id number] Consulting Endocrinology 11/09/19 [place] [address] [facility] [place] [address] Consulting Pulmonary Disease 11/12/19 [facility] [address] [place] [address] Pharmacist Pharmacy 09/06/21 Brissa Kilpatrick, [facility] [address] [place], [place] [address] Transitional Care Pharmacist Pharmacy 01/02/23 02/01/23 Mimi Crowley, exhibition specialist Cake Inspector 01/01/23 01/29/23 [facility] 12/17/17 [facility] Wound Center 07/23/18 [place] [facility] 06/20/20 Paralegal Supervisor Relationship Specialty Start Date End Date Panfilo Oreilly MD [address] [place], [place] [address] PCP - General Family Medicine 02/12/17 Shreya Mccray MD [address] [place] [address] Endocrinology 07/23/18 [place] [address] [place] [address] Specialty Mine Motor Engineer Pulmonary Disease 12/23/18 Brandee Cotter (Entry Manager) [address], [place] [id number] Consulting Endocrinology 11/09/19 [place] [address] [facility] [place] [address] Consulting Pulmonary Disease 11/12/19 [facility] [address] [place] [address] Pharmacist Pharmacy 09/06/21 Brissa Kilpatrick, [facility] [address] [place] [address] Transitional Care Pharmacist Pharmacy 01/02/23 02/01/23 Mimi Crowley, exhibition specialist Cake Inspector 01/01/23 01/29/23 [facility] 12/17/17 [facility] Wound Center 07/23/18 [place] [facility] 06/20/20 Team Status: Inactive Member Role Status Dates Dr. Tino Oreilly MD Primary Care Provider Acti ve Dr. Eulogio Jiang , DO Emergency Provider Active Paralegal Supervisor Relationship Specialty Start Date End Date Panfilo Oreilly MD [address] [place], [place] [address] PCP - General Family Medicine 02/12/17 Shreya Mccray MD [address] [place] [address] Endocrinology 07/23/18 [place] [address] [place] [address] Specialty Mine Motor Engineer Pulmonary Disease 12/23/18 Brandee Cotter (Entry Manager) [address], [place] [id number] Consulting Endocrinology 11/09/19 [place] [address] [place], [place] [address] [address] Consulting Pulmonary Disease 11/12/19 Robert Sanchez, [facility] [address] [place] [address] Pharmacist Pharmacy 09/06/21 Brissa Kilpatrick, [facility] [address] [place] [address] Transitional Care Pharmacist Pharmacy 01/02/23 02/01/23 Mimi Crowley, exhibition specialist Cake Inspector 01/01/23 01/29/23 [facility] 12/17/17 [facility] Wound Center 07/23/18 [place] [facility] 06/20/20 Paralegal Supervisor Relationship Specialty Start Date End Date Panfilo Oreilly MD [address] [place], [place] [id number] PCP - General Family Medicine 02/12/17 Shreya Mccray MD [address] [place] [address] Endocrinology 07/23/18 [place] [address] [address] Specialty Mine Motor Engineer Pulmonary Disease 12/23/18 Brandee Cotter (Entry Manager) [address], [place] [id number] Consulting Endocrinology 11/09/19 [place] [address] [place], [place] [id number] Consulting Pulmonary Disease 11/12/19 [facility] [address] [place] [address] Pharmacist Pharmacy 09/06/21 Brissa Kilpatrick, [facility] [address] [place] [address] Transitional Care Pharmacist Pharmacy 01/02/23 02/01/23 [facility] 12/17/17 [facility] Wound Center 07/23/18 [place] [facility] 06/20/20 Paralegal Supervisor Relationship Specialty Start Date End Date Panfilo Oreilly MD [address] [place] [address] PCP - General Family Medicine 02/12/17 Shreya Mccray MD [address] [place] [address] Endocrinology 07/23/18 [place] [address] [place] [address] Specialty Mine Motor Engineer Pulmonary Disease 12/23/18 Brandee Cotter (Entry Manager) [address] [place] [address] Consulting Endocrinology 11/09/19 [place] [address] [place] [address] Consulting Pulmonary Disease 11/12/19 Robert Sanchez, [facility] [address] [place] [address] Pharmacist Pharmacy 09/06/21 [facility] [address] [place], [place] 5497995 Transitional Care Pharmacist Pharmacy 01/02/23 02/01/23 [facility] 12/17/17 [facility] Wound Center 07/23/18 [facility] Patients 06/20/20 Paralegal Supervisor Relationship Specialty Start Date End Date Panfilo Oreilly MD [address] [place] [address] PCP - General Family Medicine 02/12/17 Shreya Mccray MD [address] [place] [address] Endocrinology 07/23/18 [place] [address] [place] [address] Specialty Mine Motor Engineer Pulmonary Disease 12/23/18 Brandee Cotter (Entry Manager) [address] [place] [address] Consulting Endocrinology 11/09/19 [place] [address] [place] [address] Consulting Pulmonary Disease 11/12/19 Robert Sanchez, [facility] [address] [place] [address] Pharmacist Pharmacy 09/06/21 Shonna Brissa, [facility] [address] [place], [place] [address] Transitional Care Pharmacist Pharmacy 01/02/23 02/01/23 Mimi Crowley, exhibition specialist Cake Inspector 01/01/23 01/13/23 [facility] 12/17/17 [facility] Wound Center 07/23/18 [place] [facility] 06/20/20 Paralegal Supervisor Relationship Specialty Start Date End Date Panfilo Oreilly MD [address] [place] [address] PCP - General Family Medicine 02/12/17 Shreya Mccray MD [address] [place] [address] Endocrinology 07/23/18 [place] [address] [place] [address] Specialty Mine Motor Engineer Pulmonary Disease 12/23/18 Brandee Cotter (Entry Manager) [address] [place] [address] Consulting Endocrinology 11/09/19 [place] [address] [place] [address] Consulting Pulmonary Disease 11/12/19 Robert Sanchez, [facility] [address] [place] [address] Pharmacist Pharmacy 09/06/21 Brissa Kilpatrick, [facility] [address] [place] [address] Transitional Care Pharmacist Pharmacy 01/02/23 02/01/23 Raquel Payne, exhibition specialist Cake Inspector 01/17/23 02/13/23 [facility] 12/17/17 [facility] Wound Center 07/23/18 [place] Patients 06/20/20 Paralegal Supervisor Relationship Specialty Start Date End Date Panfilo Oreilly MD [address] [place], [place] [address]881 PCP - General Family Medicine 02/12/17 Shreya Mccray MD [address] [place] [address] Endocrinology 07/23/18 [place] [address] [place] [address] Specialty Mine Motor Engineer Pulmonary Disease 12/23/18 Brandee Cotter (Entry Manager) [address] [place] [address] Consulting Endocrinology 11/09/19 [place] [address] [place] [address] Consulting Pulmonary Disease 11/12/[address] [facility] [address] [place] [address] Pharmacist Pharmacy 09/06/21 Brissa Kilpatrick, [facility] [address] [place] [address] Transitional Care Pharmacist Pharmacy 01/02/23 02/01/23 Raquel Payne, exhibition specialist Cake Inspector 01/17/23 02/13/23 [facility] 12/17/17 [facility] Wound Center 07/23/18 [place] [facility] 06/20/20 Paralegal Supervisor Relationship Specialty Start Date End Date Panfilo Oreilly MD [address] [place], [place] [address]36831 PCP - General Family Medicine 02/12/17 Shreya Mccray MD [address] [place], [place] [address]35[address] Endocrinology 07/23/18 [place] [address] [place] [address] Specialty Mine Motor Engineer Pulmonary Disease 12/23/18 Brandee Cotter (Entry Manager) [address] [place] [address] Consulting Endocrinology 11/09/19 [place] [address] [place] [address] Consulting Pulmonary Disease 11/12/19 Robert Sanchez, [facility] [address] [place] [address] Pharmacist Pharmacy 09/06/21 Brissa Kilpatrick, [facility] [address] [place] [address] Transitional Care Pharmacist Pharmacy 01/02/23 02/01/23 Raquel Payne, exhibition specialist Cake Inspector 01/17/23 02/13/23 [facility] 12/17/17 [facility] Wound Center 07/23/18 [place] [facility] 06/20/20 Paralegal Supervisor Relationship Specialty Start Date End Date Panfilo Oreilly MD [address] [place], [place] [address]38171 PCP - General Family Medicine 02/12/17 Shreya Mccray MD [address] [place] [address] Endocrinology 07/23/18 [place] [address] [place] [address] Specialty Mine Motor Engineer Pulmonary Disease 12/23/18 Brandee Cotter ([facility]) [address], [place] [id number] Consulting Endocrinology 11/09/19 [place] [address] [place], [place] [address] [address] Consulting Pulmonary Disease 11/12/19 Robert Sanchez, [facility] [address] [place] [address] Pharmacist Pharmacy 09/06/21 Brissa Kilpatrick, [facility] [address] [place] [address] Transitional Care Pharmacist Pharmacy 01/02/23 02/01/23 Raquel Payne, exhibition specialist Cake Inspector 01/17/23 02/13/23 [facility] 12/17/17 [facility] Wound Center 07/23/18 [place] [facility] 06/20/20 Paralegal Supervisor Relationship Specialty Start Date End Date Panfilo Oreilly MD [address] [place], [place] 317171 PCP - General Family Medicine 02/12/17 Shreya Mccray MD [address] [place], [place] 881451 Endocrinology 07/23/18 [place] [address] [place] [address] Specialty Mine Motor Engineer Pulmonary Disease 12/23/18 Brandee Cotter (Entry Manager) [address] [place] [address] Consulting Endocrinology 11/09/19 [place] [address] [place] [address] Consulting Pulmonary Disease 11/12/19 [facility] [address] [place] [address] Pharmacist Pharmacy 09/06/21 Brissa Kilpatrick, [facility] [address] [place] [address] Transitional Care Pharmacist Pharmacy 01/02/23 02/01/23 Raquel Payne, exhibition specialist Cake Inspector 01/17/23 02/13/23 [facility] 12/17/17 [facility] Wound Center 07/23/18 [place] Patients 06/20/20 Paralegal Supervisor Relationship Specialty Start Date End Date Panfilo Oreilly MD [address] [place], [place] [id number] PCP - General Family Medicine 02/12/17 Shreya Mccray MD [address] [place] [address] Endocrinology 07/23/18 [place] [address] [place] [address] Specialty Mine Motor Engineer Pulmonary Disease 12/23/18 Brandee Cotter (Entry Manager) [address] [place] [address] Consulting Endocrinology 11/09/19 [place] [address] [place] [address] Consulting Pulmonary Disease 11/12/19 Robert Sanchez, [facility] [address] [place] [address] Pharmacist Pharmacy 09/06/21 Raquel Payne, exhibition specialist Cake Inspector 01/17/23 02/13/23 [facility] 12/17/17 [facility] Wound Center 07/23/18 [facility] Patients 06/20/20 Paralegal Supervisor Relationship Specialty Start Date End Date Panfilo Oreilly MD [address] [place] [address] PCP - General Family Medicine 02/12/17 Shreya Mccray MD [address] [place] [address] Endocrinology 07/23/18 [place] [address] [place] [address] Specialty Mine Motor Engineer Pulmonary Disease 12/23/18 Brandee Cotter (Entry Manager) [address] [place] [address] Consulting Endocrinology 11/09/19 [place] [address] [place] [address] Consulting Pulmonary Disease 11/12/19 [facility] [address] [place] [address] Pharmacist Pharmacy 09/06/21 Raquel Payne, exhibition specialist Cake Inspector 01/17/23 02/13/23 [facility] 12/17/17 [facility] Wound Center 07/23/18 [place] Patients 06/20/20 Team Status: Inactive Member Role Status Dates Dr. Tino Oreilly MD Primary Care Provider Acti ve Dr. Eulogio Jiang DO Attending Provider, Emergency Pr ovider Active Team Status: Inactive Member Role Status Dates Dr. Tino Oreilly MD Primary Care Provider Acti ve Dr. Deejay Ornelas MD Emergency Provider Active Paralegal Supervisor Relationship Specialty Start Date End Date Panfilo Oreilly MD [address] [place], [place] [address]19381 PCP - General Family Medicine 02/12/17 Shreya Mccray MD [address] [place] [address] Endocrinology 07/23/18 [place] [address] [place] [address] Specialty Mine Motor Engineer Pulmonary Disease 12/23/18 Brandee Cotter (Entry Manager) [address] [place] [address] Consulting Endocrinology 11/09/19 [place] [address] [place] [address] Consulting Pulmonary Disease 11/12/19 [facility] [address] [place] [address] Pharmacist Pharmacy 09/06/21 Raquel Payne, exhibition specialist Cake Inspector 01/17/23 02/13/23 Dianne Garcia, [email or web address].BLOCK [address] [place] [address] Referring General Surgery 02/20/23 [facility] 12/17/17 [facility] Wound Center 07/23/18 [facility] Patients 06/20/20 Paralegal Supervisor Relationship Specialty Start Date End Date Panfilo Oreilly MD [address] [place] [address] PCP - General Family Medicine 02/12/17 Shreya Mccray MD [address] [place] [address] Endocrinology 07/23/18 [place] [address] [place] [address] Specialty Mine Motor Engineer Pulmonary Disease 12/23/18 Brandee Cotter (Entry Manager) [address] [place] [address] Consulting Endocrinology 11/09/19 [place] [address] [place] [address] Consulting Pulmonary Disease 11/12/19 Robert Sanchez, [facility] [address] [place] [address] Pharmacist Pharmacy 09/06/21 Dianne Garcia, DRAINAGE INSPECTOR.[address] [place] [address] Referring General Surgery 02/20/23 Annie Borges, [facility] [address] [place] [address] Transitional Care Pharmacist Pharmacy 02/21/23 03/22/23 [address] Cline RN [address] [facility] [place] [address] Primary Care Cake Inspector Internal Medicine 02/21/23 03/23/23 Panfilo Oreilly MD [address] [place], [place] [id number] Home Care Provider Family Medicine 02/21/23 [facility] 12/17/17 [facility] Wound Center 07/23/18 [facility] Patients 06/20/20 Paralegal Supervisor Relationship Specialty Start Date End Date Panfilo Oreilly MD [address] [place], [place] [id number] PCP - General Family Medicine 02/12/17 Shreya Mccray MD [address] [place] [address] Endocrinology 07/23/18 [place] [address] [place] [address] Specialty Mine Motor Engineer Pulmonary Disease 12/23/18 Brandee Cotter (Entry Manager) [address], [place] [id number] Consulting Endocrinology 11/09/19 Berlin Dumont [address] [place] [address] Consulting Pulmonary Disease 11/12/19 Robert Sanchez, [facility] [address] [place] [address] Pharmacist Pharmacy 09/06/21 [employer] 12/17/17 [facility] Wound Center 07/23/18 [place] [facility] Patients 06/20/20 Paralegal Supervisor Relationship Specialty Start Date End Date Panfilo Oreilly MD [address] [place] [address] PCP - General Family Medicine 02/12/17 Shreya Mccray MD [address] [place] [address] Endocrinology 07/23/18 Berlin Dumont [address] [place] [address] Specialty Mine Motor Engineer Pulmonary Disease 12/23/18 Brandee Cotter (Entry Manager) [address], [place] [id number] Consulting Endocrinology 11/09/19 Berlin Dumont [address] [place] [address] Consulting Pulmonary Disease 11/12/19 [facility] [address] [place] [address] Pharmacist Pharmacy 09/06/21 Dianne Garcia, ROSELYN.BLOCK SAWYER [address] [place] [address] Referring General Surgery 02/20/23 Annie Borges, [facility] [address] [place] [address] Transitional Care Pharmacist Pharmacy 02/21/23 03/22/23 Carlos Cline, RN [address] [place] [address] Primary Care Cake Inspector Internal Medicine 02/21/23 03/23/23 Panfilo Oreilly MD [address] [place], [place] 273031 Home Care Provider Family Medicine 02/21/23 Bharat Gardner, RN [address] [place] [address] Seafood Process Worker Post Acute Care 02/21/23 [employer] 12/17/17 [facility] Wound Center 07/23/18 [facility] Patients 06/20/20 Paralegal Supervisor Relationship Specialty Start Date End Date Panfilo Oreilly MD [address] [place], [place] [id number] PCP - General Family Medicine 02/12/17 Shreya Mccray MD [address] [place], [place] [id number] Endocrinology 07/23/18 Berlin Dumont [address] [place] [address] Specialty Mine Motor Engineer Pulmonary Disease 12/23/18 Brandee Cotter (Entry Manager) [address], [place] [id number] Consulting Endocrinology 11/09/19 Berlin Dumont [address] [place] [address] Consulting Pulmonary Disease 11/12/[address] [facility] [address] [place] [address] Pharmacist Pharmacy 09/06/21 Dianne Garcia APRN.BLOCK SAWYER [address] [facility] [place] [id number] Referring General Surgery 02/20/23 [facility] [address] [place] [address] Transitional Care Pharmacist Pharmacy 02/21/23 03/22/23 Carlos Cline, LORENZO [address] [place], [place] [id number] Primary Care Cake Inspector Internal Medicine 02/21/23 03/23/23 Panfilo Oreilly MD [address] [place], [place] 069131 Home Care Provider Family Medicine 02/21/23 Bharat Gardner, LORENZO [address] [place], [place] [phone] Seafood Process Worker Post Acute Care 02/21/23 [employer] 12/17/17 [facility] Wound Center 07/23/18 [facility] Patients 06/20/20 Paralegal Supervisor Relationship Specialty Start Date End Date Panfilo Oreilly MD [address] [place], [place] [id number] PCP - General Family Medicine 02/12/17 Shreya Mccray MD [address] [place] [address] Endocrinology 07/23/18 Berlin Dumont [address] [place] [address] Specialty Mine Motor Engineer Pulmonary Disease 12/23/18 Brandee Cotter (Entry Manager) [address], [place] [id number] Consulting Endocrinology 11/09/19 Berlin Dumont [address] [place] [address] Consulting Pulmonary Disease 11/12/19 [facility] [address] [place] [address] Pharmacist Pharmacy 09/06/21 Dianne Garcia APRN.BLOCK SAWYER [address] [place], [place] [phone] Referring General Surgery 02/20/23 Annie Borges, [facility] [address] [place] [address] Transitional Care Pharmacist Pharmacy 02/21/23 03/22/23 Carlos Cline, RN [address] [place] [address] Primary Care Cake Inspector Internal Medicine 02/21/23 03/23/23 Panfilo Oreilly MD [address] [place], [place] [id number] Home Care Provider Family Medicine 02/21/23 Bharat Gardner, LORENZO [address] [place], [place] [phone] Seafood Process Worker Post Acute Care 02/21/23 [employer] 12/17/17 [facility] Wound Center 07/23/18 [place] [facility] 06/20/20 Paralegal Supervisor Relationship Specialty Start Date End Date Panfilo Oreilly MD [address] [place] [address] PCP - General Family Medicine 02/12/17 Shreya Mccray MD [address] [place] [address] Endocrinology 07/23/18 Berlin Dumont [address] [place] [address] Specialty Mine Motor Engineer Pulmonary Disease 12/23/18 Brandee Cotter (Entry Manager) [address] [place] [address] Consulting Endocrinology 11/09/19 Berlin Dumont [address] [place] [address] Consulting Pulmonary Disease 11/12/19 Robert Sanchez, [facility] [address] [place] [address] Pharmacist Pharmacy 09/06/21 Dianne Garcia, ROSELYN.BLOCK SAWYER [address] [place] [address] Referring General Surgery 02/20/23 [facility] [address] [place], [place] [id number] Transitional Care Pharmacist Pharmacy 02/21/23 03/22/23 Carlos Cline, LORENZO [address] [place], [place] 9484395 Primary Care Cake Inspector Internal Medicine 02/21/23 03/23/23 Panfilo Oreilly MD [address] [place], [place] 04093691 Home Care Provider Family Medicine 02/21/23 Bharat Gardner, RN [address] [place] [address] Seafood Process Worker Post Acute Care 02/21/23 [employer] 12/17/17 [facility] Wound Center 07/23/18 [place] [facility] 06/20/20 Paralegal Supervisor Relationship Specialty Start Date End Date Panfilo Oreilly MD [address] [place] [address] PCP - General Family Medicine 02/12/17 Shreya Mccray MD [address] [place] [address] Endocrinology 07/23/18 Berlin Dumont [address] [place] [address] Specialty Mine Motor Engineer Pulmonary Disease 12/23/18 Brandee Cotter (Entry Manager) [address], [place] [id number] Consulting Endocrinology 11/09/19 Berlin Dumont [address] [place] [address] Consulting Pulmonary Disease 11/12/19 [facility] [address] [place] [address] Pharmacist Pharmacy 09/06/21 Dianne Garcia, ROSELYN.BLOCK SAWYER [address] [place] [address] Referring General Surgery 02/20/23 [facility] [address] [place] [address] Transitional Care Pharmacist Pharmacy 02/21/23 03/22/23 Carlos Cline, RN [address] [place] [address] Primary Care Cake Inspector Internal Medicine 02/21/23 03/23/23 Panfilo Oreilly MD [address] [place] [address] Home Care Provider Family Medicine 02/21/23 Bharat Gardner, LORENZO [address] [place] [address] Seafood Process Worker Post Acute Care 02/21/23 [employer] 12/17/17 [facility] Wound Center 07/23/18 [place] [facility] 06/20/20 Paralegal Supervisor Relationship Specialty Start Date End Date Panfilo Oreilly MD [address] [place] [address] PCP - General Family Medicine 02/12/17 Shreya Mccray MD [address] [place] [address] Endocrinology 07/23/18 Berlin Dumont [address] [place] [address] Specialty Mine Motor Engineer Pulmonary Disease 12/23/18 Brandee Cotter (Entry Manager) [address], [place] [id number] Consulting Endocrinology 11/09/19 Berlin Dumont [address] [place] [address] Consulting Pulmonary Disease 11/12/19 Robert Sanchez, [facility] [address] [place] [address] Pharmacist Pharmacy 09/06/21 Dianne Garcia, DRAINAGE INSPECTOR.BLOCK SAWYER [address] [place] [address] Referring General Surgery 02/20/23 Annie Borges, [facility] [address] [place] [address] Transitional Care Pharmacist Pharmacy 02/21/23 03/22/23 Carlos Cline, RN [address] [place] [address] Primary Care Cake Inspector Internal Medicine 02/21/23 03/23/23 Panfilo Oreilly MD [address] [place], [place] 496381 Home Care Provider Family Medicine 02/21/23 Bharat Gardner, LORENZO [address] [place] [address] Seafood Process Worker Post Acute Care 02/21/23 [employer] 12/17/17 [facility] Wound Center 07/23/18 [place] [facility] Patients 06/20/20 Paralegal Supervisor Relationship Specialty Start Date End Date Panfilo Oreilly MD [address] [place], [place] [id number] PCP - General Family Medicine 02/12/17 Shreya Mccray MD [address] [place], [place] [id number] Endocrinology 07/23/18 [place] Dumont [address] [facility] [place] [address] Specialty Mine Motor Engineer Pulmonary Disease 12/23/18 Brandee Cotter (Entry Manager) [address], [place] [id number] Consulting Endocrinology 11/09/19 [place] Dumont [address] [facility] [place] [place] [address] Consulting Pulmonary Disease 11/12/19 Robert Sanchez, [facility] [address] [place] [address] Pharmacist Pharmacy 09/06/21 Dianne Garcia, ROSELYN.BLOCK SAWYER [address] [place] [address] Referring General Surgery 02/20/23 Annie Borges, [facility] [address] [place] [address] Transitional Care Pharmacist Pharmacy 02/21/23 03/22/23 Carlos Cline, LORENZO [address] [place] [address] Primary Care Cake Inspector Internal Medicine 02/21/23 03/23/23 Panfilo Oreilly MD [address] [place], [place] 879521 Home Care Provider Family Medicine 02/21/23 Bharat Gardner, LORENZO [address] [place] [address] Seafood Process Worker Post Acute Care 02/21/23 [employer] 12/17/17 [facility] Wound Center 07/23/18 [facility] Patients 06/20/20 Paralegal Supervisor Relationship Specialty Start Date End Date Panfilo Oreilly MD [address] [place], [place] [id number] PCP - General Family Medicine 02/12/17 Shreya Mccray MD [address] [place], [place] [id number] Endocrinology 07/23/18 Berlin Dumont [address] [place] [address] Specialty Mine Motor Engineer Pulmonary Disease 12/23/18 Brandee Cotter (Entry Manager) [address], [place] [id number] Consulting Endocrinology 11/09/19 Berlin Dumont [address] [place] [address] Consulting Pulmonary Disease 11/12/[address] [facility] [address] [place] [address] Pharmacist Pharmacy 09/06/21 Dianne Garcia APRN.BLOCK SAWYER [address] [place], [place] [phone] Referring General Surgery 02/20/23 Annie Borges, [facility] [address] [place] [address] Transitional Care Pharmacist Pharmacy 02/21/23 03/22/23 Carlos Cline, RN [address] [place], [place] 3074995 Primary Care Cake Inspector Internal Medicine 02/21/23 03/23/23 Panfilo Oreilly MD [address] [place], [place] 47435691 Home Care Provider Family Medicine 02/21/23 Bharat Gardner, LORENZO [address] [place], [place] 2779131 Seafood Process Worker Post Acute Care 02/21/23 [employer] 12/17/17 [facility] Wound Center 07/23/18 [place] [facility] Patients 06/20/20 Paralegal Supervisor Relationship Specialty Start Date End Date Panfilo Oreilly MD [address] [place], [place] [id number] PCP - General Family Medicine 02/12/17 Shreya Mccray MD [address] [place], [place] [id number] Endocrinology 07/23/18 Berlin Dumont [address] [facility] [address] Specialty Mine Motor Engineer Pulmonary Disease 12/23/18 Brandee Cotter (Entry Manager) [address] [place] [address] Consulting Endocrinology 11/09/19 Berlin Dumont [address] [place] [address] Consulting Pulmonary Disease 11/12/19 Robert Sanchez, [facility] [address] [place] [address] Pharmacist Pharmacy 09/06/21 Raquel Payne, exhibition specialist Cake Inspector 01/17/23 02/13/23 Dianne Garcia, DRAINAGE INSPECTOR.BLOCK SAWYER [address] [place], [place] [phone] Referring General Surgery 02/20/23 03/02/23 [facility] [address] [place], [place] 1205995 Transitional Care Pharmacist Pharmacy 02/21/23 03/22/23 Carlos Cline, LORENZO [address] [place] [address] Primary Care Cake Inspector Internal Medicine 02/21/23 03/23/23 Panfilo Oreilly MD [address] [place], [place] 53636691 Home Care Provider Family Medicine 02/21/23 Bharat Gardner, LORENZO [address] [place], [place] 3113631 Seafood Process Worker Post Acute Care 02/21/23 Panfilo Oreilly MD [address] [place], [place] 66963691 Referring Family Medicine 03/03/23 [employer] 12/17/17 [facility] Wound Center 07/23/18 [place] [facility] Patients 06/20/20 Paralegal Supervisor Relationship Specialty Start Date End Date Panfilo Oreilly MD [address] [place] [address] PCP - General Family Medicine 02/12/17 Shreya Mccray MD [address] [place] [address] Endocrinology 07/23/18 [place] Dumont [address] [place] [address] Specialty Mine Motor Engineer Pulmonary Disease 12/23/18 Brandee Cotter (Entry Manager) [address], [place] [id number] Consulting Endocrinology 11/09/19 [place] Dumont [address] [facility] [place] [place] [address] Consulting Pulmonary Disease 11/12/19 Robert Sanchez, [facility] [address] [place] [address] Pharmacist Pharmacy 09/06/21 Dianne Garcia, ROSELYN.BLOCK SAWYER [address] [place] [address] Referring General Surgery 02/20/23 03/02/23 Annie Borges, [facility] [address] [place] [address] Transitional Care Pharmacist Pharmacy 02/21/23 03/22/23 Carlos Cline, RN [address] [place] [address] Primary Care Cake Inspector Internal Medicine 02/21/23 03/23/23 Panfilo Oreilly MD [address] [place] [address] Home Care Provider Family Medicine 02/21/23 Bharat Gardner, RN [address] [place] [address] Seafood Process Worker Post Acute Care 02/21/23 Panfilo Oreilly MD [address] [place], [place] 257631 Referring Family Medicine 03/03/23 [employer] 12/17/17 [facility] Wound Center 07/23/18 [facility] Patients 06/20/20 Paralegal Supervisor Relationship Specialty Start Date End Date Panfilo Oreilly MD [address] [place], [place] [id number] PCP - General Family Medicine 02/12/17 Shreya Mccray MD [address] [place], [place] 560671 Endocrinology 07/23/18 Berlin Dumont [address] [place] [address] Specialty Mine Motor Engineer Pulmonary Disease 12/23/18 Brandee Cotter (Entry Manager) [address], [place] [id number] Consulting Endocrinology 11/09/19 Berlin Dumont [address] [place] [address] Consulting Pulmonary Disease 11/12/[address] [facility] [address] [place], [place] [id number] Pharmacist Pharmacy 09/06/21 Dianne Garcia APRN.BLOCK SAWYER [address] [facility] [place] [id number] Referring General Surgery 02/20/23 03/02/23 [facility] [address] [place] [address] Transitional Care Pharmacist Pharmacy 02/21/23 03/22/23 Carlos Cline, RN [address] [place] [address] Primary Care Cake Inspector Internal Medicine 02/21/23 03/23/23 Panfilo Oreilly MD [address] [place], [place] 635011 Home Care Provider Family Medicine 02/21/23 Bharat Gardner, RN [address] [place] [address] Seafood Process Worker Post Acute Care 02/21/23 [employer] 12/17/17 [facility] Wound Center 07/23/18 [facility] Patients 06/20/20 Paralegal Supervisor Relationship Specialty Start Date End Date Panfilo Oreilly MD [address] [place], [place] [id number] PCP - General Family Medicine 02/12/17 Shreya Mccray MD [address] [place] [address] Endocrinology 07/23/18 Berlin Dumont [address] [place] [address] Specialty Mine Motor Engineer Pulmonary Disease 12/23/18 Brandee Cotter (Entry Manager) [address], [place] [id number] Consulting Endocrinology 11/09/19 Berlin Dumont [address] [place] [address] Consulting Pulmonary Disease 11/12/19 Robert Sanchez, [facility] [address] [place] [address] Pharmacist Pharmacy 09/06/21 Borges Annie, [facility] [address] [place] [address] Transitional Care Pharmacist Pharmacy 02/21/23 03/22/23 Carlos Cline, LORENZO [address] [place], [place] 8722695 Primary Care Cake Inspector Internal Medicine 02/21/23 03/23/23 Panfilo Oreilly MD [address] [place], [place] 12815691 Home Care Provider Family Medicine 02/21/23 Bharat Gardner, LORENZO [address] [place] [address] Seafood Process Worker Post Acute Care 02/21/23 Panfilo Oreilly MD [address] [place], [place] 62516691 Referring Family Medicine 03/03/23 [employer] 12/17/17 [facility] Wound Center 07/23/18 [place] [facility] Patients 06/20/20 Paralegal Supervisor Relationship Specialty Start Date End Date Panfilo Oreilly MD [address] [place] [address] PCP - General Family Medicine 02/12/17 Shreya Mccray MD [address] [place], [place] [id number] Endocrinology 07/23/18 Berlin Dumont [address] [place] [address] Specialty Mine Motor Engineer Pulmonary Disease 12/23/18 Brandee Cotter (Entry Manager) [address] [place] [address] Consulting Endocrinology 11/09/19 Berlin Dumont [address] [place] [address] Consulting Pulmonary Disease 11/12/19 Robert Sanchez, [facility] [address] [place] [address] Pharmacist Pharmacy 09/06/21 [facility] [address] [place] [address] Transitional Care Pharmacist Pharmacy 02/21/23 03/22/23 Carlos Cline, OLRENZO [address] [place] [address] Primary Care Cake Inspector Internal Medicine 02/21/23 03/23/23 Panfilo Oreilly MD [address] [place], [place] 72194691 Home Care Provider Family Medicine 02/21/23 Bharat Gardner, RN [address] [place] [address] Seafood Process Worker Post Acute Care 02/21/23 Panfilo Oreilly MD [address] [place], [place] [address]2880[address] [phone] Referring Family Medicine 03/03/23 [employer] 12/17/17 [facility] Wound Center 07/23/18 [place] [facility] 06/20/20 Paralegal Supervisor Relationship Specialty Start Date End Date Panfilo Oreilly MD [address] [place] [address] PCP - General Family Medicine 02/12/17 Shreya Mccray MD [address] [place] [address] Endocrinology 07/23/18 Berlin Dumont [address] [place] [address] Specialty Mine Motor Engineer Pulmonary Disease 12/23/18 Brandee Cotter (Entry Manager) [address], [place] [id number] Consulting Endocrinology 11/09/19 Berlin Dumont [address] [place] [address] Consulting Pulmonary Disease 11/12/19 [facility] [address] [place] [address] Pharmacist Pharmacy 09/06/21 [facility] [address] [place] [address] Transitional Care Pharmacist Pharmacy 02/21/23 03/22/23 Carlos Cline, RN [address] [place], [place] [id number] Primary Care Cake Inspector Internal Medicine 02/21/23 03/23/23 Panfilo Oreilly MD [address] [place] [address] Home Care Provider Family Medicine 02/21/23 Bharat Gardner, RN [address] [place] [address] Seafood Process Worker Post Acute Care 02/21/23 Panfilo Oreilly MD [address] [place] [address] Referring Family Medicine 03/03/23 [employer] 12/17/17 [facility] Wound Center 07/23/18 [place] [facility] 06/20/20 Team Status: Active Member Role Status Dates Dr. Tino Oreilly MD Primary Care Provider Acti ve Dr. Jozef Kaiser MD Emergency Provider Active Dr. Faraz Lange , Admit Provider, At tending Provider, Other Provider Active Team Status: Active Member Role Status Dates Dr. Tino Oreilly MD Primary Care Provider Acti ve Dr. Jozef Kaiser MD Emergency Provider Active Dr. Faraz Lange DO Admit Provider, Other Provider A ctive Dr. [place] Dumont MD Other Provider Active Dr. Ace Sanders DO Other Provider Active Dr. Fadi Box MD Attending Provider, Other Pro vider Active Dr. Jarrett Villalobos MD Other Provider Active Nelly Hunter PAINTER SET, PAINTER SET-C Other Provider Active Team Status: Active Member Role Status Dates Dr. Tino Oreilly MD Primary Care Provider Acti ve Dr. Jozef Kaiser MD Emergency Provider Active Dr. Faraz Lange DO Admit Provider, Other Provider A ctive Dr. [place] Dumont MD Other Provider Active Dr. Ace Sanders DO Other Provider Active Dr. Fadi Box MD Other Provider Active Dr. Jarrett Villalobos MD Other Provider Active Nelly Hunter PAINTER SET, PAINTER SET-C Other Provider Active Dr. Chris Gill MD Attending Provider Active Team Status: Active Member Role Status Dates Dr. Tino Oreilly MD Primary Care Provider Acti ve Dr. Jozef Kaiser MD Emergency Provider Active Dr. Faraz Lange DO Admit Provider, Other Provider A ctive Dr. [place] Dumont MD Other Provider Active Dr. Ace Sanders DO Attending Provider, Other Provide r Active Dr. Fadi Box MD Other Provider Active Dr. Jarrett Villalobos MD Other Provider Active Nelly Hunter PAINTER SET, PAINTER SET-C Other Provider Active Dr. Ling Neville MD Other Provider Active Team Status: Active Member Role Status Dates Dr. Tino Oreilly MD Primary Care Provider Acti ve Dr. Jozef Kaiser MD Emergency Provider Active Dr. Faraz Lange DO Admit Provider, Other Provider A ctive Dr. [place] Dumont MD Other Provider Active Dr. Ace Sanders , DO Other Provider Active Dr. Fadi Box MD Other Provider Active Dr. Jarrett Villalobos MD Other Provider Active Nelly Hunter PAINTER SET, PAINTER SET-C Other Provider Active Dr. Ling Neville MD Attending Provider, Other Prov ider Active Team Status: Inactive Member Role Status Dates Dr. Tino Oreilly MD Primary Care Provider Acti ve Dr. Deejay Ornelas MD Attending Provider, Emergency Provider Active Team Status: Inactive Member Role Status Dates Dr. Tino Oreilly MD Primary Care Provider Acti ve Dr. Jozef Kaiser MD Emergency Provider Active Dr. Faraz Lange , Admit Provider, Other Provider A ctive Dr. [place] MD Other Provider Active Dr. Ace Sanders , Other Provider Active Dr. Fadi Box MD Other Provider Active Dr. Jarrett Villalobos MD Other Provider Active Nelly Hunter PAINTER SET, PAINTER SET-C Other Provider Active Dr. Ling Neville MD Attending Provider Active Paralegal Supervisor Relationship Specialty Start Date End Date Panfilo Oreilly MD [address] [place] [address] PCP - General Family Medicine 02/12/17 Shreya Mccray MD [address] [place] [address] Endocrinology 07/23/18 Brandee Cotter (Entry Manager) [address] [place] [address] Consulting Endocrinology 11/09/19 Annie Borges, [facility] [address] [place] [address] Transitional Care Pharmacist Pharmacy 02/21/23 03/22/23 Carlos Cline, RN [address] [place] [address] Primary Care Cake Inspector Internal Medicine 02/21/23 03/23/23 Panfilo Oreilly MD [address] [place], [place] 62744691 Home Care Provider Family Medicine 03/05/23 Bharat Gardner, LORENZO [address] [place], [place] 6637431 Seafood Process Worker Post Acute Care 02/21/23 Ling Neville MD [address] [place] [address] Referring Internal Medicine 03/05/23 [employer] 12/17/17 [facility] Wound Center 07/23/18 [place] [facility] 06/20/20 Paralegal Supervisor Relationship Specialty Start Date End Date Panfilo Oreilly MD [address] [place], [place] [id number] PCP - General Family Medicine 02/12/17 Shreya Mccray MD [address] [place], [place] [id number] Endocrinology 07/23/18 Brandee Cotter (Entry Manager) [address], [place] [id number] Consulting Endocrinology 11/09/19 [facility] [address] [place] [address] Transitional Care Pharmacist Pharmacy 02/21/23 03/22/23 Carlos Cline, LORENZO [address] [place], [place] 7909395 Primary Care Cake Inspector Internal Medicine 02/21/23 03/23/23 Panfilo Orelily MD [address] [place], [place] 89799691 Home Care Provider Family Medicine 03/05/23 Bharat Gardner RN [address] [place] [address] Seafood Process Worker Post Acute Care 02/21/23 Ling Neville MD [address] [place], [place] 12044[address] Referring Internal Medicine 03/05/23 [employer] 12/17/17 [facility] Wound Center 07/23/18 [place] [facility] 06/20/20 Paralegal Supervisor Relationship Specialty Start Date End Date Panfilo Oreilly MD [address] [place], [place] [phone] PCP - General Family Medicine 02/12/17 Shreya Mccray MD [address] [place], [place] [id number] Endocrinology 07/23/18 Brandee Cotter (Entry Manager) [address], [place] [id number] Consulting Endocrinology 11/09/19 [facility] [address] [place] [address] Transitional Care Pharmacist Pharmacy 02/21/23 03/22/23 Carlos Cline, LORENZO [address] [place], [place] 8317695 Primary Care Cake Inspector Internal Medicine 02/21/23 03/23/23 Panfilo Oreilly MD [address] [place] [address] Home Care Provider Family Medicine 03/05/23 Bharat Gardner, RN [address] [place], [place] 95[address] Seafood Process Worker Post Acute Care 02/21/23 Ling Neville MD [address] [place], [place] [id number] Referring Internal Medicine 03/05/23 Bharat Gardner RN [address] [place], [place] 2485031 Seafood Process Worker Post Acute Care 03/06/23 [facility] 12/17/17 [facility] Wound Center 07/23/18 [place] [facility] 06/20/20 Paralegal Supervisor Relationship Specialty Start Date End Date Panfilo Oreilly MD [address] [place], [place] [id number] PCP - General Family Medicine 02/12/17 Shreya Mccray MD [address] [place], [place] [id number] Endocrinology 07/23/18 Brandee Cotter (Entry Manager) [address], [place] [id number] Consulting Endocrinology 11/09/19 [facility] [address] [place], [place] [id number] Transitional Care Pharmacist Pharmacy 02/21/23 03/22/23 Carlos Cline, LORENZO [address] [place], [place] [id number] Primary Care Cake Inspector Internal Medicine 02/21/23 03/23/23 Panfilo Oreilly MD [address] [place] [address] Home Care Provider Family Medicine 03/05/23 Bharat Gardner RN [address] [place] [address] Seafood Process Worker Post Acute Care 02/21/23 Ling Neville MD [address] [place] [address] Referring Internal Medicine 03/05/23 Bharat Gardner RN [address] [place] [address] Seafood Process Worker Post Acute Care 03/06/23 [employer] 12/17/17 [facility] Wound Center 07/23/18 [place] [facility] Patients 06/20/20 Paralegal Supervisor Relationship Specialty Start Date End Date Panfilo Oreilly MD [address] [place], [place] [id number] PCP - General Family Medicine 02/12/17 Shreya Mccray MD [address] [place], [place] [id number] Endocrinology 07/23/18 Brandee Cotter (Entry Manager) [address] [place], [place] [id number] Consulting Endocrinology 11/09/19 [facility] [address] [place] [address] Transitional Care Pharmacist Pharmacy 02/21/23 03/22/23 Carlos Cline, RN [address] [place] [address] Primary Care Cake Inspector Internal Medicine 02/21/23 03/23/23 Panfilo Oreilly MD [address] [place], [place] [id number] Home Care Provider Family Medicine 03/05/23 Bharat Gardner, LORENZO [address] [place], [place] [id number] Seafood Process Worker Post Acute Care 02/21/23 Ling Neville MD [address] [place], [place] [id number] Referring Internal Medicine 03/05/23 Bharat Gardner RN [address] [place] [address] Seafood Process Worker Post Acute Care 03/06/23 [employer] 12/17/17 [facility] Wound Center 07/23/18 [place] [facility] 06/20/20 Paralegal Supervisor Relationship Specialty Start Date End Date Panfilo Oreilly MD [address] [place], [place] [id number] PCP - General Family Medicine 02/12/17 Shreya Mccray MD [address] [place], [place] [id number] Endocrinology 07/23/18 Brandee Cotter (Entry Manager) [address], [place] [id number] Consulting Endocrinology 11/09/[address] [facility] [address] [place], [place] [id number] Transitional Care Pharmacist Pharmacy 02/21/23 03/22/23 Carlos Cline, LORENZO [address] [place] [address] Primary Care Cake Inspector Internal Medicine 02/21/23 03/23/23 Panfilo Oreilly MD [address] [place], [place] [id number] Home Care Provider Family Medicine 03/05/23 Bharat Gardner, RN [address] [place] [address] Seafood Process Worker Post Acute Care 02/21/23 Ling Neville MD [address] [place], [place] [id number] Referring Internal Medicine 03/05/23 Bharat Gardner, LORENZO [address] [place] [address] Seafood Process Worker Post Acute Care 03/06/23 [employer] 12/17/17 [facility] Wound Center 07/23/18 [place] [facility] Patients 06/20/20 Paralegal Supervisor Relationship Specialty Start Date End Date Panfilo Oreilly MD [address] [place], [place] 042841 PCP - General Family Medicine 02/12/17 Shreya Mccray MD [address] [place], [place] 132621 Endocrinology 07/23/18 [place] Dumont [address] [place] [address] Specialty Mine Motor Engineer Pulmonary Disease 12/23/18 03/04/23 Brandee Cotter (Entry Manager) [address], [place] [id number] Consulting Endocrinology 11/09/19 [place] Dumont [address] [place] [address] Consulting Pulmonary Disease 11/12/19 03/04/23 [facility] [address] [place] [address] Pharmacist Pharmacy 09/06/21 03/04/23 Dianne Garcia, ROSELYN.BLOCK SAWYER [address] [place] [address] Referring General Surgery 02/20/23 03/02/23 Annie Borges, [facility] [address] [place] [address] Transitional Care Pharmacist Pharmacy 02/21/23 03/22/23 Carlos Cline, RN [address] [place] [address] Primary Care Cake Inspector Internal Medicine 02/21/23 03/23/23 Panfilo Oreilly MD [address] [place], [place] [id number] Home Care Provider Family Medicine 03/05/23 Bharat Gardner, LORENZO [address] [place], [place] 2333631 Seafood Process Worker Post Acute Care 02/21/23 Panfilo Oreilly MD [address] [place], [place] 178391 Referring Family Medicine 03/03/23 03/04/23 Ling Neville MD [address] [place], [place] 597741 Referring Internal Medicine 03/05/23 Bharat Gardner, LORENZO [address] [place] [address] Seafood Process Worker Post Acute Care 03/06/23 [employer] 12/17/17 [facility] Wound Center 07/23/18 [place] [facility] Patients 06/20/20 Paralegal Supervisor Relationship Specialty Start Date End Date Panfilo Oreilly MD [address] [place], [place] [id number] PCP - General Family Medicine 02/12/17 Shreya Mccray MD [address] [place], [place] [id number] Endocrinology 07/23/18 Brandee Cotter (Entry Manager) [address] [place] [address] Consulting Endocrinology 11/09/19 Annie Borges, [facility] [address] [place] [address] Transitional Care Pharmacist Pharmacy 02/21/23 03/22/23 Carlos Cline, LORENZO [address] [place] [address] Primary Care Cake Inspector Internal Medicine 02/21/23 03/23/23 Pnafilo Oreilly MD [address] [place], [place] 803931 Home Care Provider Family Medicine 03/05/23 Bharat Gardner RN [address] [place] [address] Seafood Process Worker Post Acute Care 02/21/23 Ling Neville MD [address] [place], [place] [id number] Referring Internal Medicine 03/05/23 Bharat Gardner RN [address] [place] [address] Seafood Process Worker Post Acute Care 03/06/23 [employer] 12/17/17 [facility] Wound Center 07/23/18 [facility] Patients 06/20/20 Paralegal Supervisor Relationship Specialty Start Date End Date Panfilo Oreilly MD [address] [place], [place] [id number] PCP - General Family Medicine 02/12/17 Shreya Mccray MD [address] [place], [place] [id number] Endocrinology 07/23/18 Brandee Cotter (Entry Manager) [address] [place] [address] Consulting Endocrinology 11/09/19 Annie Borges [facility] [address] [place] [address] Transitional Care Pharmacist Pharmacy 02/21/23 03/22/23 Carlos Cline RN [address] [place] [address] Primary Care Cake Inspector Internal Medicine 02/21/23 03/23/23 Panfilo Oreilly MD [address] [place], [place] 33729691 Home Care Provider Family Medicine 03/05/23 Bharat Gardner, LORENZO [address] [place] [address] Seafood Process Worker Post Acute Care 02/21/23 Ling Neville MD [address] [place], [place] 95475691 Referring Internal Medicine 03/05/23 Bharat Gardner RN [address] [place] [address] Seafood Process Worker Post Acute Care 03/06/23 [employer] 12/17/17 [facility] Wound Center 07/23/18 [facility] Patients 06/20/20 Paralegal Supervisor Relationship Specialty Start Date End Date Panfilo Oreilly MD [address] [place], [place] [id number] PCP - General Family Medicine 02/12/17 Shreya Mccray MD [address] [place], [place] [id number] Endocrinology 07/23/18 Brandee Cotter (Entry Manager) [address], [place] [id number] Consulting Endocrinology 11/09/19 Annie Borges, [facility] [address] [place] [address] Transitional Care Pharmacist Pharmacy 02/21/23 03/22/23 Carlos Cline, LORENZO [address] [place] [address] Primary Care Cake Inspector Internal Medicine 02/21/23 03/23/23 Panfilo Oreilly MD [address] [place], [place] 67239691 Home Care Provider Family Medicine 03/05/23 Bharat Gardner, LORENZO [address] [place], [place] 5263431 Seafood Process Worker Post Acute Care 02/21/23 Ling Neville MD [address] [place] [address] Referring Internal Medicine 03/05/23 Bharat Gardner RN [address] [place] [address] Seafood Process Worker Post Acute Care 03/06/23 [employer] 12/17/17 [facility] Wound Center 07/23/18 [place] [facility] Patients 06/20/20 Paralegal Supervisor Relationship Specialty Start Date End Date Panfilo Oreilly MD [address] [place], [place] [id number] PCP - General Family Medicine 02/12/17 Shreya Mccray MD [address] [place], [place] [id number] Endocrinology 07/23/18 Brandee Cotter (Entry Manager) [address] [place], [place] [id number] Consulting Endocrinology 11/09/19 Annie Borges [facility] [address] [place] [address] Transitional Care Pharmacist Pharmacy 02/21/23 03/22/23 Carlos Cline, RN [address] [place] [address] Primary Care Cake Inspector Internal Medicine 02/21/23 03/23/23 Panfilo Oreilly MD [address] [place], [place] 890041 Home Care Provider Family Medicine 03/05/23 Bharat Gardner, LORENZO [address] [place] [address] Seafood Process Worker Post Acute Care 02/21/23 Ling Neville MD [address] [place] [address] Referring Internal Medicine 03/05/23 Bharat Gardner RN [address] [place] [address] Seafood Process Worker Post Acute Care 03/06/23 [employer] 12/17/17 [facility] Wound Center 07/23/18 [place] [facility] Patients 06/20/20 Paralegal Supervisor Relationship Specialty Start Date End Date Panfilo Oreilly MD [address] [place], [place] [id number] PCP - General Family Medicine 02/12/17 Shreya Mccray MD [address] [place], [place] [id number] Endocrinology 07/23/18 Brandee Cotter (Entry Manager) [address] [place], [place] [id number] Consulting Endocrinology 11/09/19 Annie Borges, [facility] [address] [place] [address] Transitional Care Pharmacist Pharmacy 02/21/23 03/22/23 Carlos Cline, LORENZO [address] [place] [address] Primary Care Cake Inspector Internal Medicine 02/21/23 03/23/23 Panfilo Oreilly MD [address] [place], [place] 74169691 Home Care Provider Family Medicine 03/05/23 Bharat Gardner, LORENZO [address] [place], [place] 3966531 Seafood Process Worker Post Acute Care 02/21/23 Ling Neville MD [address] [place], [place] 363161 Referring Internal Medicine 03/05/23 Bharat Gardner RN [address] [place], [place] 0200631 Seafood Process Worker Post Acute Care 03/06/23 [employer] 12/17/17 [facility] Wound Center 07/23/18 [facility] Patients 06/20/20 Paralegal Supervisor Relationship Specialty Start Date End Date Panfilo Oreilly MD [address] [place], [place] [phone] PCP - General Family Medicine 02/12/17 Shreya Mccray MD [address] [place], [place] [id number] Endocrinology 07/23/18 Brandee Cotter (Entry Manager) [address], [place] [id number] Consulting Endocrinology 11/09/19 Annie Borges, [facility] [address] [place] [address] Transitional Care Pharmacist Pharmacy 02/21/23 03/22/23 Carlos Cline, LORENZO [address] [place], [place] 7628395 Primary Care Cake Inspector Internal Medicine 02/21/23 03/23/23 Panfilo Oreilly MD [address] [place], [place] 90358691 Home Care Provider Family Medicine 03/05/23 Bharat Gardner RN [address] [place] [address] Seafood Process Worker Post Acute Care 02/21/23 Ling Neville MD [address] [place], [place] 08834691 Referring Internal Medicine 03/05/23 Bharat Gardner RN [address] [place], [place] 3402431 Seafood Process Worker Post Acute Care 03/06/23 [employer] 12/17/17 [facility] Wound Center 07/23/18 [place] [facility] Patients 06/20/20 Paralegal Supervisor Relationship Specialty Start Date End Date Panfilo Oreilly MD [address] [place] [address] PCP - General Family Medicine 02/12/17 Shreya Mccray MD [address] [place] [address] Endocrinology 07/23/18 [place] Dumont [address] [place] [address] Specialty Mine Motor Engineer Pulmonary Disease 12/23/18 03/04/23 Brandee Cotter (Entry Manager) [address], [place] [id number] Consulting Endocrinology 11/09/19 [place] Dumont [address] [place] [address] Consulting Pulmonary Disease 11/12/19 03/04/[address] [facility] [address] [place] [address] Pharmacist Pharmacy 09/06/21 03/04/23 Dianne Garcia, ROSELYN.BLOCK [address] [place] [address] Referring General Surgery 02/20/23 03/02/23 Annie Borges, [facility] [address] [place] [address] Transitional Care Pharmacist Pharmacy 02/21/23 03/22/23 Carlos Cline, LORENZO [address] [place], [place] 5922695 Primary Care Cake Inspector Internal Medicine 02/21/23 03/23/23 Panfilo Oreilly MD [address] [place], [place] 19823691 Home Care Provider Family Medicine 03/05/23 Bharat Gardner, LORENZO [address] [place], [place] 5334331 Seafood Process Worker Post Acute Care 02/21/23 Panfilo Oreilly MD [address] [place], [place] 52430691 Referring Family Medicine 03/03/23 03/04/23 Ling Neville MD [address] [place], [place] 23200691 Referring Internal Medicine 03/05/23 Bharat Gardner RN [address] [place] [address] Seafood Process Worker Post Acute Care 03/06/23 [employer] 12/17/17 [facility] Wound Center 07/23/18 [place] [facility] Patients 06/20/20 Paralegal Supervisor Relationship Specialty Start Date End Date Panfilo Oreilly MD [address] [place], [place] [phone] PCP - General Family Medicine 02/12/17 Shreya Mccray MD [address] [place], [place] [id number] Endocrinology 07/23/18 Brandee Cotter (Entry Manager) [address] [place], [place] [id number] Consulting Endocrinology 11/09/19 Panfilo Oreilly MD [address] [place], [place] 388401 Home Care Provider Family Medicine 03/05/23 Bharat Gardner, LORENZO [address] [place], [place] 1355231 Seafood Process Worker Post Acute Care 02/21/23 Ling Neville MD [address] [address] Referring Internal Medicine 03/05/23 Bharat Gardner RN [address] [place], [place] 0325731 Seafood Process Worker Post Acute Care 03/06/23 [employer] 12/17/17 [facility] Wound Center 07/23/18 [place] [facility] Patients 06/20/20 Paralegal Supervisor Relationship Specialty Start Date End Date Panfilo Oreilly MD [address] [place] [address] PCP - General Family Medicine 02/12/17 Shreya Mccray MD [address] [place] [address] Endocrinology 07/23/18 [place] Dumont [address] [place] [address] Specialty Mine Motor Engineer Pulmonary Disease 12/23/18 03/04/23 Brandee Cotter (Entry Manager) [address] [place] [address] Consulting Endocrinology 11/09/19 [place] Dumont [address] [facility] [place] [place] [address] Consulting Pulmonary Disease 11/12/19 03/04/23 Robert Sanchez, [facility] [address] [place] [address] Pharmacist Pharmacy 09/06/21 03/04/23 Raquel Payne, exhibition specialist Cake Inspector 01/17/23 02/13/23 Dianne Garcia, ROSELYN.BLOCK SAWYER [address] [place] [address] Referring General Surgery 02/20/23 03/02/23 Annie Borges, [facility] [address] [place] [address] Transitional Care Pharmacist Pharmacy 02/21/23 03/22/23 Carlos Cline RN [address] [place] [address] Primary Care Cake Inspector Internal Medicine 02/21/23 03/23/23 Panfilo Oreilly MD [address] [place] [address] Home Care Provider Family Medicine 03/05/23 Bharat Gardner RN [address] [place] [address] Seafood Process Worker Post Acute Care 02/21/23 Panfilo Oreilly MD [address] [place] [address] Referring Family Medicine 03/03/23 03/04/23 Ling Neville MD [address] [place] [address] Referring Internal Medicine 03/05/23 Bharat Gardner RN [address] [place], [place] 6672831 Seafood Process Worker Post Acute Care 03/06/23 [employer] 12/17/17 [facility] Wound Center 07/23/18 [place] [facility] Patients 06/20/20 Paralegal Supervisor Relationship Specialty Start Date End Date Panfilo Oreilly MD [address] [place], [place] 016751 PCP - General Family Medicine 02/12/17 Shreya Mccray MD [address] [place], [place] 947461 Endocrinology 07/23/18 Brandee Cotter (Entry Manager) [address] [place], [place] [id number] Consulting Endocrinology 11/09/19 Panfilo Oreilly MD [address] [place] [address] Home Care Provider Family Medicine 03/05/23 Bharat Gardner, LORENZO [address] [place] [address] Seafood Process Worker Post Acute Care 02/21/23 Ling Neville MD [address] [place] [address] Referring Internal Medicine 03/05/23 Bharat Gardner, LORENZO [address] [place], [place] 6081931 Seafood Process Worker Post Acute Care 03/06/23 [employer] 12/17/17 [facility] Wound Center 07/23/18 [place] [facility] Patients 06/20/20 Paralegal Supervisor Relationship Specialty Start Date End Date Panfilo Oreilly MD [address] [place] [address] PCP - General Family Medicine 02/12/17 Shreya Mccray MD [address] [place], [place] 513971 Endocrinology 07/23/18 Brandee Cotter (Entry Manager) [address] [place] [address] Consulting Endocrinology 11/09/19 Panfilo Oreilly MD [address] [place], [place] 808431 Home Care Provider Family Medicine 03/05/23 Bharat Gardner, LORENZO [address] [place], [place] 7008231 Seafood Process Worker Post Acute Care 02/21/23 Ling Neville MD [address] [place] [address] Referring Internal Medicine 03/05/23 Bharat Gardner RN [address] [place], [place] 2044131 Seafood Process Worker Post Acute Care 03/06/23 [employer] 12/17/17 [facility] Wound Center 07/23/18 [place] [facility] Patients 06/20/20 Paralegal Supervisor Relationship Specialty Start Date End Date Panfilo Oreilly MD [address] [place], [place] [id number] PCP - General Family Medicine 02/12/17 Shreya Mccray MD [address] [place] [address] Endocrinology 07/23/18 Brandee Cotter (Entry Manager) [address] [place], [place] [id number] Consulting Endocrinology 11/09/19 Panfilo Oreilly MD [address] [place], [place] 70780691 Home Care Provider Family Medicine 03/05/23 Bharat Gardner, LORENZO [address] [place], [place] 1583431 Seafood Process Worker Post Acute Care 02/21/23 Ling Neville MD [address] [place], [place] 232161 Referring Internal Medicine 03/05/23 Bharat Gardner RN [address] [place], [place] 3661431 Seafood Process Worker Post Acute Care 03/06/23 [facility] 12/17/17 [facility] Wound Center 07/23/18 [place] [facility] Patients 06/20/20 Paralegal Supervisor Relationship Specialty Start Date End Date Panfilo Oreilly MD [address] [place] [address] PCP - General Family Medicine 02/12/17 Shreya Mccray MD [address] [place] [address] Endocrinology 07/23/18 Panfilo Oreilly MD [address] [place] [address] Home Care Provider Family Medicine 03/05/23 Bharat Gardner RN [address] [place], [place] 0433631 Seafood Process Worker Post Acute Care 03/06/23 Chris Gill [address] [place] [address] Referring Internal Medicine 04/24/23 [employer] 12/17/17 [facility] Wound Center 07/23/18 [place] [facility] Patients 06/20/20 Paralegal Supervisor Relationship Specialty Start Date End Date Panfilo Oreilly MD [address] [place] [address] PCP - General Family Medicine 02/12/17 Shreya Mccray MD [address] [place] [address] Endocrinology 07/23/18 Panfilo Oreilly MD [address] [place] [address] Home Care Provider Family Medicine 03/05/23 Bharat Gardner RN [address] [place] [address] Seafood Process Worker Post Acute Care 03/06/23 Chris Gill [address] [facility] [place] [address] Referring Internal Medicine 04/24/23 [facility] 12/17/17 [facility] Wound Center 07/23/18 [facility] Patients 06/20/20 Paralegal Supervisor Relationship Specialty Start Date End Date Panfilo Oreilly MD [address] [place] [address] PCP - General Family Medicine 02/12/17 Shreya Mccray MD [address] [place] [address] Endocrinology 07/23/18 Panfilo Oreilly MD [address] [place] [address] Home Care Provider Family Medicine 03/05/23 Bharat Gardner RN [address] [place], [place] 2003331 Seafood Process Worker Post Acute Care 03/06/23 Chris Gill [address] [facility] [place] [address] Referring Internal Medicine 04/24/23 [facility] 12/17/17 [facility] Wound Center 07/23/18 [place] [facility] Patients 06/20/20 Paralegal Supervisor Relationship Specialty Start Date End Date Panfilo Oreilly MD [address] [place] [address] PCP - General Family Medicine 02/12/17 Shreya Mccray MD [address] [place] [address] Endocrinology 07/23/18 Panfilo Oreilly MD [address] [place] [address] Home Care Provider Family Medicine 03/05/23 Bharat Gardner RN [address] [place], [place] 1569031 Seafood Process Worker Post Acute Care 03/06/23 Chirs Gill [address] [place] [address] Referring Internal Medicine 04/24/23 [facility] 12/17/17 [facility] Wound Center 07/23/18 [place] [facility] Patients 06/20/20 Paralegal Supervisor Relationship Specialty Start Date End Date Panfilo Oreilly MD [address] [place] [address] PCP - General Family Medicine 02/12/17 Shreya Mccray MD [address] [place] [address] Endocrinology 07/23/18 Panfilo Oreilly MD [address] [place] [address] Home Care Provider Family Medicine 03/05/23 Bharat Gardner RN [address] [place] [address] Seafood Process Worker Post Acute Care 03/06/23 Chris Gill [address] [place] [address] Referring Internal Medicine 04/24/23 [facility] 12/17/17 [facility] Wound Center 07/23/18 [place] [facility] Patients 06/20/20 Paralegal Supervisor Relationship Specialty Start Date End Date Panfilo Oreilly MD [address] [place] [address] PCP - General Family Medicine 02/12/17 Shreya Mccray MD [address] [place] [address] Endocrinology 07/23/18 Panfilo Oreilly MD [address] [place] [address] Home Care Provider Family Medicine 03/05/23 Chris Gill [address] [place] [address] Referring Internal Medicine 04/24/23 [facility] 12/17/17 [facility] Wound Center 07/23/18 [place] [facility] Patients 06/20/20 Paralegal Supervisor Relationship Specialty Start Date End Date Panfilo Oreilly MD [address] [place] [address] PCP - General Family Medicine 02/12/17 Shreya Mccray MD [address] [place] [address] Endocrinology 07/23/18 Panfilo Oreilly MD [address] [place] [address] Home Care Provider Family Medicine 03/05/23 Chris Gill [address] [place] [address] Referring Internal Medicine 04/24/23 [facility] 12/17/17 [facility] Wound Center 07/23/18 [place] [facility] Patients 06/20/20 Paralegal Supervisor Relationship Specialty Start Date End Date Panfilo Oreilly MD [address] [place] [address] PCP - General Family Medicine 02/12/17 Shreya Mccray MD [address] [place] [address] Endocrinology 07/23/18 Panfilo Oreilly MD [address] [place] [address] Home Care Provider Family Medicine 03/05/23 Chris Gill [address] [place] [address] Referring Internal Medicine 04/24/23 [facility] 12/17/17 [facility] Wound Center 07/23/18 [place] [facility] Patients 06/20/20 Paralegal Supervisor Relationship Specialty Start Date End Date Panfilo Oreilly MD [address] [place] [address] PCP - General Family Medicine 02/12/17 Shreya Mccray MD [address] [place] [address] Endocrinology 07/23/18 Panfilo Oreilly MD [address] [place] [address] Home Care Provider Family Medicine 03/05/23 Bharat Gardner, RN [address] [place] [address] Seafood Process Worker Post Acute Care 03/06/23 05/01/23 Chris Gill [address] [place], [place] 632441 Referring Internal Medicine 04/24/23 [facility] 12/17/17 [facility] Wound Center 07/23/18 [place] [facility] Patients 06/20/20 Paralegal Supervisor Relationship Specialty Start Date End Date Panfilo Oreilly MD [address] [place], [place] [id number] PCP - General Family Medicine 02/12/17 Shreya Mccray MD [address] [place] [address] Endocrinology 07/23/18 Panfilo Oreilly MD [address] [place] [address] Home Care Provider Family Medicine 03/05/23 Chris Gill MD [address] [place] [address] Referring Internal Medicine 04/24/23 [facility] 12/17/17 [facility] Wound Center 07/23/18 [place] [facility] Patients 06/20/20 Paralegal Supervisor Relationship Specialty Start Date End Date Panfilo Oreilly MD [address] [place] [address] PCP - General Family Medicine 02/12/17 Shreya Mccray MD [address] [place] [address] Endocrinology 07/23/18 Brandee Cotter (Entry Manager) [address] [place] [address] Consulting Endocrinology 11/09/19 04/23/23 Annie Borges, [facility] [address] [place] [address] Transitional Care Pharmacist Pharmacy 02/21/23 03/22/23 Carlos Cline, LORENZO [address] [place], [place] [phone] Primary Care Cake Inspector Internal Medicine 02/21/23 03/23/23 Panfilo Oreilly MD [address] [place], [place] 20118691 Home Care Provider Family Medicine 03/05/23 Bharat Gardner RN [address] [place], [place] 0698131 Seafood Process Worker Post Acute Care 02/21/23 04/23/23 Ling Neville MD [address] [facility] [place] [address] Referring Internal Medicine 03/05/23 04/23/23 Bharat Gardner RN [address] [place] [address] Seafood Process Worker Post Acute Care 03/06/23 05/01/23 Chris Gill MD [address] [place], [place] 10388691 Referring Internal Medicine 04/24/23 [facility] 12/17/17 [facility] Wound Center 07/23/18 [place] [facility] Patients 06/20/20 Paralegal Supervisor Relationship Specialty Start Date End Date Panfilo Oreilly MD [address] [place], [place] [id number] PCP - General Family Medicine 02/12/17 Shreya Mccray MD [address] [place] [address] Endocrinology 07/23/18 Panfilo [address] [facility] [address] Home Care Provider Family Medicine 03/05/23 Chris Gill MD [address] [place] [address] Referring Internal Medicine 04/24/23 [facility] 12/17/17 [facility] Wound Center 07/23/18 [place] [facility] Patients 06/20/20 Paralegal Supervisor Relationship Specialty Start Date End Date Panfilo Oreilly MD [address] [place] [address] PCP - General Family Medicine 02/12/17 Shreya Mccray MD [address] [place] [address] Endocrinology 07/23/18 Panfilo Oreilly MD [address] [place] [address] Home Care Provider Family Medicine 03/05/23 Chris Gill MD [address] [facility] [place] [address] Referring Internal Medicine 04/24/23 [employer] 12/17/17 [facility] W[facility] Center 07/23/18 [place] [facility] 06/20/20 Paralegal Supervisor Relationship Specialty Start Date End Date Shreya Mccray MD Endocrinology 07/23/18 Panfilo Oreilly MD [address] [facility] [place] [address] Home Care Provider Family Medicine 03/05/23 Chris Gill MD [address] [place] [address] Referring Internal Medicine 04/24/23 [employer] 12/17/17 [facility] 07/23/18 [place] [facility] 06/20/20 Paralegal Supervisor Relationship Specialty Start Date End Date Shreya Mccray MD Endocrinology 07/23/18 Panfilo Oreilly MD [address] [place] [address] Home Care Provider Family Medicine 03/05/23 Chris Gill MD [address] [place] [address] Referring Internal Medicine 04/24/23 [employer] 12/17/17 [facility] 07/23/18 [place] [facility] 06/20/20 Paralegal Supervisor Relationship Specialty Start Date End Date Shreya Mccray MD Endocrinology 07/23/18 Panfilo Oreilly MD [address] [facility] [place] [address] Home Care Provider Family Medicine 03/05/23 Chris Gill MD [address] [place] [id number] Referring Internal Medicine 04/24/23 [employer] 12/17/17 [facility] 07/23/18 [place] [facility] 06/20/20 Paralegal Supervisor Relationship Specialty Start Date End Date Shreya Mccray MD Endocrinology 07/23/18 Panfilo Oreilly MD [address] [facility] [place] [place] [id number] Home Care Provider Family Medicine 03/05/23 Chris Gill MD [address] [place] [id number] Referring Internal Medicine 04/24/23 [employer] 12/17/17 [facility] 07/23/18 [place] [facility] 06/20/20 Team Status: Active Member Role Status Dates Dr. Tino Oreilly MD Primary Care Provider Acti ve Dr. Audi Gamino MD Attending Provider Active Team Status: Active Member Role Status Dates Dr. Tino Oreilly MD Primary Care Provider Acti ve Dr. Deejay Ornelas MD Emergency Provider Active Dr. Chris Gill MD Admit Provider, Other Provide r Active Dr. Belem Aponte DO Attending Provider, Other Provide r Active Team Status: Inactive Member Role Status Dates Dr. Tino Oreilly MD Primary Care Provider Acti ve Dr. Deejay Ornelas MD Emergency Provider Active Dr. Chris Gill MD Admit Provider, Other Provide r Active Dr. Belem Aponte DO Attending Provider Active Team Status: Active Member Role Status Dates Dr. Tino Oreilly MD Primary Care Provider Acti ve Dr. Irina Quintero MD Emergency Provider Active Dr. Liam Wilkes MD Admit Provider, Attending Provider Active Team Status: Active Member Role Status Dates Dr. Tino Oreilly MD Primary Care Provider Acti ve Dr. Irina Quintero MD Emergency Provider Active Dr. Liam Wilkes MD Admit Provi mame, Attending Provider, Other Provider Active Team Status: Active Member Role Status Dates Dr. Tino Oreilly MD Primary Care Provider Acti ve Dr. Irina Quintero MD Emergency Provider Active Dr. Liam Wilkes MD Admit Provider, Other Pro vider Active Dr. Belem Aponte DO Attending Provider, Other Provide r Active Team Status: Inactive Member Role Status Dates Dr. Tino Oreilly MD Primary Care Provider Acti ve Dr. Irina Quintero MD Emergency Provider Active Dr. Liam Wilkes MD Admit Provider, Other Pro vider Active Dr. Belem Aponte DO Attending Provider Active Paralegal Supervisor Relationship Specialty Start Date End Date Panfilo Oreilly MD [address] [place], [place] [address] PCP - General Family Medicine 02/12/17 06/22/23 Shreya Mccray MD [address] [place] [address] Endocrinology 07/23/18 Panfilo Oreilly MD [address] [place] [address] Home Care Provider Family Medicine 03/05/23 Chris Gill MD [address] [place], [place] [address] Referring Internal Medicine 04/24/23 [employer] 12/17/17 [facility] 07/23/18 [place] [facility] 06/20/20 Paralegal Supervisor Relationship Specialty Start Date End Date Shreya Mccray MD Endocrinology 07/23/18 Panfilo Oreilly MD [address] [place] [address] Home Care Provider Family Medicine 03/05/23 Chris Gill MD [address] [place], [place] [address] Referring Internal Medicine 04/24/23 [employer] 12/17/17 [facility] 07/23/18 [place] [facility] 06/20/20 Paralegal Supervisor Relationship Specialty Start Date End Date Shreya Mccray MD Endocrinology 07/23/18 Panfilo Oreilly MD [address] [place] [place] [id number] Home Care Provider Family Medicine 03/05/23 Chris Gill MD [address] [place] [place] [address] Referring Internal Medicine 04/24/23 [employer] 12/17/17 [facility] 07/23/18 [place] [facility] 06/20/20 Paralegal Supervisor Relationship Specialty Start Date End Date Shreya Mccray MD Endocrinology 07/23/18 Panfilo Oreilly MD [address] [place], [place] [id number] Home Care Provider Family Medicine 03/05/23 Chris Gill MD [address] [place] [address] Referring Internal Medicine 04/24/23 [employer] 12/17/17 [facility] 07/23/18 [place] [facility] 06/20/20 Team Status: Active Member Role Status Dates Dr. Tino Oreilly MD Family Provider Active Delmy Solorzano MD Primary Care Provider Active Team Status: Inactive Member Role Status Alison Solorzano MD Primary Care Provider, Attending Prov ider Active Team Status: Active Member Role Status Alison Solorzano MD Primary Care Provider, Attending Prov ider Active Team Status: Inactive Member Role Status Alison Solorzano MD Primary Care Provide r, Attending Provider, Referring Provider Active Team Status: Inactive Member Role Status Alison Solorzano MD Primary Care Provider Active Dr. Eulogio Jiang , Emergency Provider Active Paralegal Supervisor Relationship Specialty Start Date End Date Panfilo Oreilly MD [address] [place] [address] PCP - General Family Medicine 02/12/17 06/22/23 Shreya Mccray MD [address] [place] [address] Endocrinology 07/23/18 Brandee Cotter (Entry Manager) [address] [place] [address] Consulting Endocrinology 11/09/19 04/23/23 Annie Borges, [facility] [address] [place] [address] Transitional Care Pharmacist Pharmacy 02/21/23 03/22/23 Carlos Cline, [facility] [address] [place] [address] Primary Care Cake Inspector Internal Medicine 02/21/23 03/23/23 Panfilo Oreilly MD [address] [place], [place] [address] Home Care Provider Family Medicine 03/05/23 Bharat Gardner RN [address] [place], [place] [id number] Seafood Process Worker Post Acute Care 02/21/23 04/23/23 Ling Neville MD [address] [facility] [place] [address] Referring Internal Medicine 03/05/23 04/23/23 Bharat Gardner RN [address] [place], [place] [id number] Seafood Process Worker Post Acute Care 03/06/23 05/01/23 Chris Gill MD [address] [place], [place] [address] Referring Internal Medicine 04/24/23 [employer] 12/17/17 [facility] 07/23/18 [place] [facility] 06/20/20 Team Status: Inactive Member Role Status Dates Delmy Solorzano MD Primary Care Provider Active Dr. Eulogio Jiang DO Attending Provider, Emergency Pr ovider Active Paralegal Supervisor Relationship Specialty Start Date End Date Panfilo Oreilly MD [address] [place], [place] [address] PCP - General Family Medicine 02/12/17 06/22/23 Shreya Mccray MD [address] [place], [place] [address] Endocrinology 07/23/18 Berlin Dumont MD [address] [place] [address] Specialty Mine Motor Engineer Pulmonary Disease 12/23/18 03/04/23 Brandee Cotter ([facility]), [employer] [address] [place], [place] [address] Consulting Endocrinology 11/09/19 04/23/23 Berlin Dumont MD [address] [place], [place] [address] Consulting Pulmonary Disease 11/12/19 03/04/23 Robert Sancehz, [facility] [address] [place] [address] Pharmacist Pharmacy 09/06/21 03/04/23 [employer] 12/17/17 [facility] 07/23/18 [place] [facility] 06/20/20 Paralegal Supervisor Relationship Specialty Start Date End Date Panfilo Oreilly MD [address] [place] [address] PCP - General Family Medicine 02/12/17 06/22/23 Shreya Mccray MD [address] [place] [address] Endocrinology 07/23/18 Berlin Dumont MD [address] [place] [address] Specialty Mine Motor Engineer Pulmonary Disease 12/23/18 03/04/23 Brandee Cotter, NIKIA [address] [place], [place] [address] Consulting Endocrinology 11/09/19 04/23/23 Berlin Dumont MD [address] [place], [place] [address] Consulting Pulmonary Disease 11/12/19 03/04/23 Robert Sanchez, [facility] [address] [place] [address] Pharmacist Pharmacy 09/06/21 03/04/23 [employer] 12/17/17 [facility] W[facility] Center 07/23/18 [facility] Patients 06/20/20 Paralegal Supervisor Relationship Specialty Start Date End Date Panfilo Oreilly MD [address] [place] [address] PCP - General Family Medicine 02/12/17 06/22/23 Shreya Mccray MD [address] [place] [address] Endocrinology 07/23/18 Berlin Dumont MD [address] [place] [address] Specialty Mine Motor Engineer Pulmonary Disease 12/23/18 03/04/23 Brandee Cotter, NIKIA [address] [place] [address] Consulting Endocrinology 11/09/19 04/23/23 Berlin Dumont MD [address] [place] [address] Consulting Pulmonary Disease 11/12/19 03/04/23 [employer] 12/17/17 [facility] W[facility] 07/23/18 [place] [facility] 06/20/20 Team Status: Active Member Role/Relationship Status Alison Solorzano MD Primary Care Provider Active Team Status: Active Member Role/Relationship Status Alison Solorzano MD Primary Care Provider Active St art: August 16, 2025 Dr. Jozef Kaiser MD Emergency Provider Active Sta rt: August 16, 2025 Dr. Olamide Mas MD Admit Provider Active St art: August 16, 2025 Dr. Olamide Mas MD Attending Provider Active Start: August 16, 2025 Dr. Olamide Mas MD Other Provider Active St art: August 16, 2025 Team Status: Active Member Role/Relationship Status Alison Solorzano MD Primary care physician Active Team Status: Inactive Member Role/Relationship Status Alison Solorzano MD Primary care physician Active S tart: August 16, 2025 End: August 19, 2025 Dr. Jozef Kaiser MD Emergency Department Physician Active Start: August 16, 2025 End: August 19, 2025 Dr. Olamide Mas MD Admitting physician Active Start: August 16, 2025 End: August 19, 2025 Dr. Olamide Mas MD Nurse Practitioner Active Start: August 16, 2025 End: August 19, 2025 Dr. Jersey Pradhan MD Attending physician Active Start: August 16, 2025 End: August 19, 2025 Dr. Norman Mcclendon DPM Nurse Practitioner Active Start: August 16, 2025 End: August 19, 2025 Dr. Cody Gonzalez MD Nurse Practitioner Active Start: August 16, 2025 End: August 19, 2025 Team Status: Active Member Role/Relationship Status Alison Solorzano MD Primary care physician Active S tart: August 17, 2025 Dr. Jozef Kaiser MD Emergency Department Physician Active Start: August 17, 2025 Dr. Olamide Mas MD Admitting physician Active Start: August 17, 2025 Dr. Olamide Mas MD Nurse Practitioner Active Start: August 17, 2025 Dr. Jersey Pradhan MD Attending physician Active Start: August 17, 2025 Dr. Jersey Pradhan MD Nurse Practitioner Active Start: August 17, 2025 Dr. Ilan Meza DPM Nurse Practitioner Active Start: August 17, 2025 Team Status: Active Member Role/Relationship Status Dates Delmy Solorzano MD Primary care physician Active S tart: August 18, 2025 Dr. Jozef Kaiser MD Emergency Department Physician Active Start: August 18, 2025 Dr. Olamide Mas MD Admitting physician Active Start: August 18, 2025 Dr. Olamide Mas MD Nurse Practitioner Active Start: August 18, 2025 Dr. Jersey Pradhan MD Attending physician Active Start: August 18, 2025 Dr. Jersey Pradhan MD Nurse Practitioner Active Start: August 18, 2025 Dr. Ilan Meza DPM Nurse Practitioner Active Start: August 18, 2025 Team Status: Active Member Role/Relationship Status Dates Delmy Solorzano MD Primary care physician Active S tart: August 19, 2025 Dr. Jozef Kaiser MD Emergency Department Physician Active Start: August 19, 2025 Dr. Olamide Mas MD Admitting physician Active Start: August 19, 2025 Dr. Olamide Mas MD Nurse Practitioner Active Start: August 19, 2025 Dr. Jersey Pradhan MD Attending physician Active Start: August 19, 2025 Dr. Jersey Pradhan MD Nurse Practitioner Active Start: August 19, 2025 Dr. Norman Mcclendon DPM Nurse Practitioner Active Start: August 19, 2025 Dr. Cody Gonzalez MD Nurse Practitioner Active Start: August 19, 2025 Goals (unrecognized section and content) Goals may be documented in a n alternate sectionGoals may be documented in an alternate sectionGoals may be documented in an alternate sectionGoals may be documented in an alternate sectionGoals may be documented in an alternate sectionGoals may be documented in an alternate sectionGoals may be documented in an alternate section INFORMATION SOURCE (unrecogn ized section and content) DATE CREATED AUTHOR 12/11/2022 [facility] DATE CREATED AUTHOR AUTHOR'S ORGANIZ ATION 02/21/2023 [facility] DATE CREATED AUTHOR AUTHOR'S ORGANIZ ATION 06/13/2025 [facility] DATE CREATED AUTHOR AUTHOR'S ORGANIZ ATION 07/17/2025 [facility] DATE CREATED AUTHOR AUTHOR'S ORGANIZ ATION 10/13/2025 [facility] FOR RECORDS PERTAINING TO PATIENTS WHO ARE OR HAVE BEEN ENROLLED IN A CHEMICAL DEPENDENCY/SUBSTANCEABUSE PROGRAM, SOME INFORMATION MAY BE OMITTED. This clinical summary was aggregated from multiple sources. Caution should be exercised in using it in the provision of clinical care. This summary normalizes information from multiple sources, and as a consequence, information in this document may materially change the coding, format and clinical context of patient data. In addition, data may be omitted in some cases. CLINICAL DECISIONS SHOULD BE BASED ON THE PRIMARY CLINICAL RECORDS. [facility] [employer] [facility]. provides no warranty or guarantee of the accuracy or completeness of information in this document.
[2025-10-28 02:42] VITALS: BP 141/56; PULSE 93; RESP 12; O2SAT 93
[2025-10-28 02:43] LABS: Anion Gap 14 (5-15); BUN 19 mg/dL (4-19); BUN/Creat Ratio 18.2 RATIO (10-20); Calcium,Total 9.0 mg/dL (7.6-11.0); Carbon Dioxide 32.0 mmol/L (21.0-32.0); Chloride 95 mmol/L (98-108); Estimated Creatinine Clearance 117.76 ml/min (50-250); Glucose 229 mg/dL (70-99); Magnesium 1.2 mg/dL (1.5-2.2); Potassium 3.6 mmol/L (3.3-5.1); Pro- Brain NATRIURETIC PEPTIDE 80 pg/mL (<=450); Troponin T High Sensitivity 31 ng/L (<=14)
[2025-10-28 03:42] VITALS: BP 135/58; PULSE 92; RESP 20; O2SAT 94
[2025-10-28 04:00] VITALS: BP 137/59; PULSE 86; RESP 18; O2SAT 94
[2025-10-28] MEDS: Ketorolac 30 MG/ML Syringe IV (04:02)
[2025-10-28] MEDS: DiphenhydrAMINE 50 MG/ML Syringe 25 MG IV (04:02)
--- NOTE | 2025-10-28 04:30 | EX.ED.DYSGE1 ---
HPI History of Present Illness Chief Complaint: Chest Pain Informant: patient and EMS Narrative Narrative: Patient is a 50-year-old female with past medical history of chronic respiratory failure with hypoxia on oxygen at home. She also has a history of CHF as well as insulin-dependent diabetes. She states that today she has noticed pain and numbness essentially from the left shoulder down to the hand. She states that she has felt slight radiation from the shoulder towards the chest as well. She states that she has also had mild cough and increased shortness of breath. She denies any fevers or chills or known sick contact. She states she does not know why her arm is sore and she is concerned that it could be cardiac in nature or that she is developing a potential pneumonia or having worsening of her heart failure. Secondary to this he called EMS and she was brought in for evaluation [facility] Medical History (Updated 10/28/25 @ 06:[address] Eulogio Jiang, DO) MRSA (methicillin resistant staph aureus) culture positive Cellulitis of leg MRSA cellulitis of left foot Arthritis Non-smoker CHF (congestive heart failure) History of diabetes mellitus Anemia Hypoxia Morbid obesity Venous stasis dermatitis of both lower extremities BMI 60.0-69.9, adult Noncompliance with CPAP treatment Acute on chronic respiratory failure with hypoxia and hypercapnia Perianal abscess Type 2 diabetes mellitus with hyperglycemia Contusion of knee, right Chronic diastolic (congestive) heart failure Depression Diabetes GERD (gastroesophageal reflux disease) BiPAP (biphasic positive airway pressure) dependence Sleep apnea On home oxygen therapy Smoker COPD (chronic obstructive pulmonary disease) Hypertension Congestive heart failure KERRY (acute kidney injury) Chronic respiratory failure with hypoxia Opiate overdose History of left heart catheterization (LHC) (~01/05/19) Type 2 diabetes mellitus Old myocardial infarction Essential hypertension Restrictive lung disease secondary to obesity Dyspnea on exertion Pulmonary embolism Hidradenitis Non-healing open wound of left groin Open wound of vulva with complication Necrotizing soft tissue infection Abscess of vulva Soft tissue abscess of inguinal region Respiratory failure with hypoxia Abscess Hyperglycemia due to type 2 diabetes mellitus NSTEMI (non-ST elevated myocardial infarction) Tobacco abuse Hyperlipidemia Morbid obesity History of MRSA infection Anxiety 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 Home Medications Medication Instructions Recorded Last Taken Type multivit-iron 18 mg-folic acid 400 1 ea PO DAILY supplement 03/26/17 07/14/23 History mcg-calcium 500 mg-minerals tablet omeprazole 40 mg capsule,delayed 40 mg PO DAILY GERD 12/15/18 07/14/23 History release loratadine 10 mg tablet 10 mg PO DAILY PRN Allergies 03/01/20 07/14/23 History apixaban 5 mg tablet 5 mg PO BID blood thinner 08/20/20 07/14/23 History diltiazem HCl 120 mg 120 mg PO DAILY heart rate 08/20/20 07/14/23 History capsule,extended release 24 hr lisinopril 10 mg tablet 10 mg PO DAILY blood pressure 03/26/21 07/14/23 History metformin 500 mg tablet,extended 1,000 mg PO DAILY diabetes 03/26/21 07/14/23 History release 24 hr metoprolol succinate 25 mg 25 mg PO DAILY blood pressure 03/26/21 07/14/23 History tablet,extended release 24 hr atorvastatin 80 mg tablet 80 mg PO QHS cholesterol 02/07/22 07/14/23 History furosemide 40 mg tablet 80 mg PO DAILY diuretic 09/22/22 07/14/23 History albuterol sulfate 2.5 mg/3 mL 2.5 mg inhalation Q4H PRN SOB 12/09/22 07/10/23 History (0.083 %) solution for nebulization fenofibrate nanocrystallized 145 145 mg PO DAILY CHOLESTEROL 12/09/22 07/14/23 History mg tablet insulin glargine U-300 conc 300 104 unit subcut BID diabetes 07/14/23 07/13/23 History unit/mL (3 mL) subcutaneous pen (Toujeo Max U-300 SoloStar) potassium chloride 20 mEq See Rx Instructions .Route 08/05/24 Unknown Rx tablet,extended release(part/cryst) .COMPLEX #60 TABLETS duloxetine 60 mg capsule,delayed 60 mg PO DAILY 11/09/24 Unknown History release ergocalciferol (vitamin D2) 1,250 1,250 mcg PO QWEEK vitamin 11/09/24 Unknown History mcg (50,000 unit) capsule (Vitamin D2) ferrous sulfate 325 mg (65 mg 325 mg PO DAILY supplement 11/09/24 Unknown History iron) tablet (FeroSul) lorazepam 1 mg tablet 1 mg PO TID anxiety 11/09/24 Unknown History methocarbamol 750 mg tablet 1,500 mg PO TID muscle spasm 08/16/25 Unknown History oxycodone 15 mg tablet 15 mg PO Q6H PRN PRN pain 08/16/25 Unknown History pregabalin 150 mg capsule 150 mg PO TID pain 08/16/25 Unknown History semaglutide 2 mg/dose (8 mg/3 mL) 2 mg subcut QWEEK 08/16/25 Unknown History subcutaneous pen injector (Ozempic) diazepam 5 mg tablet (Valium) 5 mg PO TID PRN muscle spasm 5 10/28/25 Unknown Rx days #15 tabs insulin lispro 100 unit/mL 20 unit subcut TID 10/28/25 Unknown History subcutaneous pen (Humalog KwikPen (U-100) Insulin) Allergy/AdvReac Type Severity Reaction Status Date / Time cyclobenzaprine HCl (From Allergy Hives Verified 10/28/25 01:49 Flexeril) venlafaxine (From Effexor) AdvReac Severe hives Verified 10/28/25 01:49 Family History Father CVA (cerebral vascular accident) Heart disease Diabetes Mother Thyroid disorder Surgical History History of delivery H/O arthroscopic knee surgery History of cholecystectomy Social History household members: none Smoking Status: Former smoker how long ago did patient quit smokin PPD smoker, quit x 1 year approximately. second hand exposure: Yes alcohol intake: never substance use type: does not use caffeine: Yes Type: carbonated beverages Number of servings: 1 and coffee Number of servings: 1 ROS ROS ED Constitutional Constitutional ED: Denies chills or fever(s) Eyes Eyes: Denies change in vision ENT ENT ED: Reports rhinorrhea; Denies sore throat Cardiovascular Cardiovascular: Reports chest pain; Denies palpitations or racing heartbeat Respiratory/Chest Respiratory/Chest: Reports cough and dyspnea Gastrointestinal Gastrointestinal: Denies abdominal pain, diarrhea, nausea or vomiting Genitourinary Genitourinary ED: Denies dysuria Musculoskeletal Musculoskeletal: Reports other Details: Positive left shoulder/arm pain ; Denies neck pain Integumentary Denies Abrasions or rash Neurologic Neurologic: Reports headache(s) Hematologic/Lymphatic Hematologic/Lymphatic: Reports easy bleeding; Denies easy bruising Allergic/Immunologic Allergic/Immunologic ED: Denies mouth swelling or tongue swelling EXAM Physical Exam Const Vital Signs: 10/28/25 01:42 10/28/25 02:07 10/28/25 02:42 Temperature 98.5 F Temperature Source Oral Pulse Rate 91 93 Respiratory Rate 22 H 12 Respiratory Effort Short of Breath Labored Respiratory Pattern Normal Blood Pressure 152/73 H 141/56 H Blood Pressure Mean 99 84 Pulse Ox 98 93 Oxygen Delivery Method Nasal Cannula Nasal Cannula Oxygen Flow Rate (L/min) 4 4 Fraction of Inspired Oxygen (FIO2) 10/28/25 03:42 10/28/25 04:00 10/28/25 05:00 Temperature Temperature Source Pulse Rate 92 86 88 Respiratory Rate 20 H 18 17 Respiratory Effort Respiratory Pattern Blood Pressure 135/58 H 137/59 H 121/62 H Blood Pressure Mean 83 85 81 Pulse Ox 94 94 96 Oxygen Delivery Method Nasal Cannula Nasal Cannula Oxygen Flow Rate (L/min) 4 2 Fraction of Inspired Oxygen (FIO2) 4 10/28/25 05:01 Temperature 97.5 F L Temperature Source Pulse Rate 88 Respiratory Rate 16 Respiratory Effort Respiratory Pattern Blood Pressure 121/62 H Blood Pressure Mean 81 Pulse Ox 96 Oxygen Delivery Method Oxygen Flow Rate (L/min) Fraction of Inspired Oxygen (FIO2) Positive well nourished, well developed and obese General Appearance ED: well developed Nutritional Appearance: obese HEENT HEENT Narrative: Normocephalic atraumatic No tongue or lip swelling no oral lesions no airway edema or compromise No secondary findings in the posterior pharynx to suggest infection Eyes PERRL and EOMs intact bilaterally General Eye ED: Negative for scleral icterus Neck supple and no JVD Chest Wall palpation of chest normal Resp normal respiratory effort Resp Narrative: Breath sounds are diminished throughout with faint rhonchi in the bilateral lower lobes however no signs of respiratory distress Cardio regular rate and regular rhythm Rate: other Other Details: Radial and carotid pulses are equal and symmetric GI normal to inspection, nondistended, normoactive bowel sounds, non-tender, non-distended and no masses GI Narrative: No voluntary guarding or rigidity or pulsatile mass No fluid wave noted Auscultation: normoactive bowel sounds Palpation: soft Extremity Extremity Narrative: +2-3 pitting edema to the bilateral lower extremities that is equal and symmetric and chronic per patient Negative Homans' sign bilaterally Chronic stasis changes are noted to the bilateral lower legs without secondary findings to suggest infection Left upper extremity is neurovascularly intact; AIN/PIN are intact and normal. No bony deformity or joint effusion. All compartments are soft and compressible going against compartment. No overlying soft tissue changes to suggest. There is tenderness and spasm noted along the left upper trapezius and rhomboid region that is reproducible with palpation and most Negative Spurling sign bilaterally. Neuro oriented x3, CN's II-XII intact bilaterally and no sensory deficits noted Sensorium / Orientation: alert Psych mental status grossly normal Skin Skin Narrative: Chronic stasis changes of the bilateral lower legs without secondary findings to suggest infection MDM MDM MDM Narrative Medical decision making narrative: Patient arrived to ER slightly hypertensive but otherwise with stable vitals. She was satting in the mid 90s on her normal nasal cannula oxygen. With report of pain radiating down the left I feel this is most likely radiculopathy stemming from the tight trapezius and rhomboid muscles of the left upper back. She reported pain did not start in the chest and radiate towards her arm but more so started in the arm and would radiate slightly towards the chest. This is atypical for a cardiac event. However based on her medical conditions and previous heart history I did elect to perform an EKG to assess for cardiac dysrhythmia or acute coronary syndrome as well as basic laboratory studies. EKG was sinus rhythm going against and there is no ischemic findings going against acute coronary syndrome. This correlates with an initial troponin of 31 and a delta 32 going against active heart disease. Chart review reveals that previous troponins were 37 and 36 indicating this is her baseline. She does not have findings of acute blood loss anemia or acute kidney injury. And her proBNP is normal going against volume overload/CHF. After receiving Valium the patient reported improvement of her left arm and as the arm is neurovascularly intact without signs of compartment syndrome or secondary infection I do not feel the need for further intervention. As the exam indicates this is most likely muscle tension causing the radiculopathy and not stemming from spinal stenosis or herniated disc I do not feel the need for a CT scan of the cervical spine at this time. The patient was informed of her normal cardiac markers as well as x-ray not revealing signs of volume overload or secondary infection/pneumonia. She states she is feeling much better at this time and therefore is otherwise safe for discharge History & Record Review Discussion w/independent historian: Patient Additional record(s) reviewed:: Prior labs Lab Data Attestation: I reviewed the patient's lab results. Labs: Laboratory Results - last 24 hr 10/28/25 10/28/25 02:04 04:08 WBC 8.8 RBC 3.93 L Hgb 10.9 L Hct 34.6 L MCV 88.0 MCH 27.7 MCHC 31.5 L RDW Std Deviation 43.6 RDW Coeff of Darrion 13.6 Plt Count 251 MPV 10.0 Immature Gran % (Auto) 1.100 H Neut % (Auto) 64.9 Lymph % (Auto) 25.7 [place] % (Auto) 4.7 Eos % (Auto) 3.0 Baso % (Auto) 0.6 Absolute Neuts (auto) 5.7 Absolute Lymphs (auto) 2.26 Nucleated RBC % 0 Sodium 142 Potassium 3.6 Chloride 95 L Carbon Dioxide 32.0 Anion Gap 14 BUN 19 Creatinine 1.03 Estim Creat Clear Calc 117.76 Est GFR (MDRD) Non-Af 67 BUN/Creatinine Ratio 18.2 Glucose 229 H Calcium 9.0 Magnesium 1.2 L Troponin T High Sens 31 H D Troponin T Hi Sens 2 Hr 32 H NT pro BNP II 80 Radiography Diagnostic Testing: Clinical Impression(s) from Imaging Studies Chest X-Ray 10/28/25 02:10 IMPRESSION: No acute pulmonary process. Stable cardiomegaly and pulmonary hilar vascular congestion Reading Location: [place] [id number] Chest x-ray as interpreted by the emergency medicine physician reveals cardiomegaly and mild pulmonary vascular congestion which is chronic in nature without acute infiltrate or pneumothorax Discharge Plan Triage Chief Complaint: Chest Pain ED Provider: Eulogio Jiang Dx/Rx/DC Orders Clinical Impression: Nonspecific chest pain, Cervical radiculopathy, Morbid obesity, Chronic respiratory failure with hypoxia, Chronic diastolic (congestive) heart failure, Diabetes mellitus type 2, insulin dependent Instructions: ED Chest Pain, Uncertain Cause, ED Radiculopathy, Cervical Prescriptions: New diazepam [Valium] 5 mg tablet 5 mg PO TID PRN (Reason: muscle spasm) 5 Days Qty: 15 0RF No Action loratadine 10 mg tablet 10 mg PO DAILY PRN (Reason: Allergies) lisinopril 10 mg tablet 10 mg PO DAILY Patient Comments: TAKE 1 TABLET BY MOUTH EVERY DAY metformin 500 mg tablet extended release 24 hr 1,000 mg PO DAILY metoprolol succinate 25 mg tablet extended release 24 hr 25 mg PO DAILY Patient Comments: TAKE 1 TABLET BY MOUTH EVERY DAY atorvastatin 80 mg tablet 80 mg PO QHS urstealy-brsc-MD-calcium-mins 1 EACH tablet 1 ea PO DAILY Patient Comments: vitamin omeprazole 40 MG capsule,delayed release(DR/EC) 40 mg PO DAILY diltiazem HCl 120 MG capsule 120 mg PO DAILY apixaban 5 MG tablet 5 mg PO BID furosemide 40 mg tablet 80 mg PO DAILY albuterol sulfate 2.5 mg /3 mL (0.083 %) solution for nebulization 2.5 mg inhalation Q4H PRN (Reason: SOB) fenofibrate nanocrystallized 145 mg tablet 145 mg PO DAILY insulin glargine U-300 conc [Toujeo Max U-300 SoloStar] 300 unit/mL (3 mL) insulin pen 104 unit SUBCUT BID Patient Comments: PT STATES SHE TAKES THIS BUT DOES NOT KNOW HOW OFTEN OR HOW MANY UNITS ferrous sulfate [FeroSul] 325 mg (65 mg iron) tablet 325 mg PO DAILY ergocalciferol (vitamin D2) [Vitamin D2] 1,250 mcg (50,000 unit) capsule 1,250 mcg PO QWEEK lorazepam 1 mg tablet 1 mg PO TID duloxetine 60 mg capsule,delayed release(DR/EC) 60 mg PO DAILY oxycodone 15 mg tablet 15 mg PO Q6H PRN PRN (Reason: pain) methocarbamol 750 mg tablet 1,500 mg PO TID pregabalin 150 mg capsule 150 mg PO TID Ozempic 2 mg/dose (8 mg/3 mL) pen injector 2 mg SUBCUT QWEEK Patient Comments: [NO ORIGINAL SIG] insulin lispro [Humalog KwikPen Insulin] 100 unit/mL insulin pen 20 unit subcut TID potassium chloride 20 mEq tablet,ER particles/crystals See Rx Instructions .ROUTE .COMPLEX Qty: 60 11RF Dose Instruction: TAKE 1 TABLET BY MOUTH TWICE A DAY Rx Instructions: TAKE 1 TABLET BY MOUTH TWICE A DAY Primary Care Provider: Care Physician,No Primary Referrals: Care Physician,No Primary [Primary Care Provider, Medical] Activity Restrictions/Additional Instructions: Your workup today revealed no sign of lung pathology such as pneumonia or volume overload. The blood test for your heart was normal going against active heart damage. Based on your history and exam the pain in your right arm is secondary to superficial nervous compression from a tight and spasming muscle. Heat the area to reduce pain and speed healing and take the muscle relaxer as directed. Return to the ER should you have any further concern Print Language: Argentine Disposition Disposition: Home, Self Care Discharge Date/Time: 10/28/25 05:24
[2025-10-28 04:43] LABS: Troponin T High Sens 2 HR 32 ng/L (<=14)
[2025-10-28 05:00] VITALS: BP 121/62; PULSE 88; RESP 17; O2SAT 96
[2025-10-28 05:01] VITALS: BP 121/62; PULSE 88; RESP 16; TEMP 36.4; O2SAT 96
== END 2025-10-28 05:24 | disposition home or self-care (01) ==
PROVIDERS: Emergency Provider Emergency Medicine; Visit Provider Emergency Medicine
DX: R07.9 Chest pain, unspecified (principal); J96.11 Chronic respiratory failure with hypoxia; I11.0 Hypertensive heart disease with heart failure; I50.32 Chronic diastolic (congestive) heart failure; J44.9 Chronic obstructive pulmonary disease, unspecified; E66.01 Morbid (severe) obesity due to excess calories; Z68.45 Body mass index [BMI] 70 or greater, adult; Z79.4 Long term (current) use of insulin; E11.9 Type 2 diabetes mellitus without complications; M54.12 Radiculopathy, cervical region; I25.2 Old myocardial infarction; Z99.81 Dependence on supplemental oxygen; Z79.899 Other long term (current) drug therapy; Z87.891 Personal history of nicotine dependence
CPT/HCPCS: 96374; 96375; 99285; 71045; 80048; 83735; 83880; 84484; 85025; 87631; 93005; A4216

== ENCOUNTER 2025-10-31 20:24 | Inpatient (IN) | payer MEDICARE, MEDICAID, SELFPAY ==
[2025-10-31] VITALS (12 sets, daily range): BP systolic 98–178; BP diastolic 41–74; PULSE 99–131; RESP 14–25; TEMP 37.1–40.1; O2SAT 75–100; BMI 71.4
--- NOTE | 2025-10-31 20:39 | EKG12_ITS ---
Test Reason : SOB Blood Pressure : */* mmHG Vent. Rate : 120 BPM Atrial Rate : 120 BPM P-R Int : 150 ms QRS Dur : 82 ms QT Int : 328 ms P-R-T Axes : 49 -14 74 degrees QTcB Int : 463 ms Sinus tachycardia Otherwise normal ECG poor data quality Confirmed by Rolly Decker ([id number]), industrial editor RANDI BROWNLEE ([id number]) on 11/02/2025 8:43:17 AM Referred By: Confirmed By: Rolly Decker
[2025-10-31 20:50] LABS: Allen Test Positive; Base Excess 10 mmol/L (-2 to +2); FI02 6.0; PO2 39 mmHG (75-100); SITE L Radial; SO2 71 % (94-98)
--- NOTE | 2025-10-31 20:59 | CM.ED ---
Social Work SW met with patients daughter as daughter very tearful in waiting area. Daughter told SW about patients medical history and what brought patient to ED today. Emotional support provided. Daughter notified that SW would be available should she need anything further. No other needs at this time. Shauna Ferreira, FIBER GLASS WORKER, TALENT PROGRAM MANAGER
[2025-10-31 21:06] LABS: Hematocrit 35.2 % (37-47); Hemoglobin 10.6 g/dL (12.0-15.0); Immature Granulocytes Count 0.150 X10^3/uL (0.0-0.0); Mean Corp Hgb Conc 30.1 g/dL (32-36); Mean Corpuscular Volume 91.0 fL (81-99); Mean Platelet Vol. 9.9 fl (6.2-12.0); NRBC Flagged by Analyzer 0.1 % (0-5); Platelet Count 233 K/mm3 (150-450); RBC Distribution Width CV 13.6 % (11.6-14.6); RBC Distribution Width SD 44.9 fl (35.1-43.9); Red Blood Count 3.87 M/mm3 (4.2-5.4); White Blood Count 16.9 K/mm3 (4.4-11.0)
[2025-10-31] MEDS: Propofol 10MG/Ml 1,000 MG/100 ML Bottle 11.7 MG CONT INF (21:10)
--- NOTE | 2025-10-31 21:21 | EX.ED.CRITCA ---
HPI History of Present Illness Chief Complaint: Alt LOC Detail of Chief Complaint: Altered mental status Informant: family and EMS Onset/Context/Timing Onset: Today Context: Sudden Onset Timing: Continuous Quality: Patient is unresponsive. GCS is 3 Location: Presents via ambulance from home Current Severity: Severe Maximum Severity: Severe Worsened by: Paramedics reported CO2 was greater than 60 Relieved by: Nothing Associated Symptoms Length of loss of consciousness: Unknown Narrative Narrative: Patient is a 50-year-old woman who is noncompliant with treatment for her obstructive sleep apnea. She does have a history of diabetes, pneumonia, congestive heart failure, kidney disease, has been intubated on 5 separate occasions according to daughter. Her BMI is 71.5. Unable obtain any history from patient and exam is limited as well. Prior similar symptoms: Yes PFSH [facility] Medical History MRSA (methicillin resistant staph aureus) culture positive Cellulitis of leg MRSA cellulitis of left foot Arthritis Non-smoker CHF (congestive heart failure) History of diabetes mellitus Anemia Hypoxia Morbid obesity Venous stasis dermatitis of both lower extremities BMI 60.0-69.9, adult Noncompliance with CPAP treatment Acute on chronic respiratory failure with hypoxia and hypercapnia Perianal abscess Type 2 diabetes mellitus with hyperglycemia Contusion of knee, right Chronic diastolic (congestive) heart failure Depression Diabetes GERD (gastroesophageal reflux disease) BiPAP (biphasic positive airway pressure) dependence Sleep apnea On home oxygen therapy Smoker COPD (chronic obstructive pulmonary disease) Hypertension Congestive heart failure KERRY (acute kidney injury) Chronic respiratory failure with hypoxia Opiate overdose History of left heart catheterization (LHC) (~01/05/19) Type 2 diabetes mellitus Old myocardial infarction Essential hypertension Restrictive lung disease secondary to obesity Dyspnea on exertion Pulmonary embolism Hidradenitis Non-healing open wound of left groin Open wound of vulva with complication Necrotizing soft tissue infection Abscess of vulva Soft tissue abscess of inguinal region Respiratory failure with hypoxia Abscess Hyperglycemia due to type 2 diabetes mellitus NSTEMI (non-ST elevated myocardial infarction) Tobacco abuse Hyperlipidemia Morbid obesity History of MRSA infection Anxiety 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 Home Medications ?Medication ?Instructions ?Recorded ?Last Taken ?Type multivit-iron 18 mg-folic acid 400 1 ea PO DAILY supplement 03/26/17 07/14/23 History mcg-calcium 500 mg-minerals tablet omeprazole 40 mg capsule,delayed 40 mg PO DAILY GERD 12/15/18 07/14/23 History release loratadine 10 mg tablet 10 mg PO DAILY PRN Allergies 03/01/20 07/14/23 History apixaban 5 mg tablet 5 mg PO BID blood thinner 08/20/20 07/14/23 History diltiazem HCl 120 mg 120 mg PO DAILY heart rate 08/20/20 07/14/23 History capsule,extended release 24 hr lisinopril 10 mg tablet 10 mg PO DAILY blood pressure 03/26/21 07/14/23 History metformin 500 mg tablet,extended 1,000 mg PO DAILY diabetes 03/26/21 07/14/23 History release 24 hr metoprolol succinate 25 mg 25 mg PO DAILY blood pressure 03/26/21 07/14/23 History tablet,extended release 24 hr atorvastatin 80 mg tablet 80 mg PO QHS cholesterol 02/07/22 07/14/23 History furosemide 40 mg tablet 80 mg PO DAILY diuretic 09/22/22 07/14/23 History albuterol sulfate 2.5 mg/3 mL 2.5 mg inhalation Q4H PRN SOB 12/09/22 07/10/23 History (0.083 %) solution for nebulization fenofibrate nanocrystallized 145 145 mg PO DAILY CHOLESTEROL 12/09/22 07/14/23 History mg tablet insulin glargine U-300 conc 300 104 unit subcut BID diabetes 07/14/23 07/13/23 History unit/mL (3 mL) subcutaneous pen (Toujeo Max U-300 SoloStar) potassium chloride 20 mEq See Rx Instructions .Route 08/05/24 Unknown Rx tablet,extended release(part/cryst) .COMPLEX #60 TABLETS duloxetine 60 mg capsule,delayed 60 mg PO DAILY 11/09/24 Unknown History release ergocalciferol (vitamin D2) 1,250 1,250 mcg PO QWEEK vitamin 11/09/24 Unknown History mcg (50,000 unit) capsule (Vitamin D2) ferrous sulfate 325 mg (65 mg 325 mg PO DAILY supplement 11/09/24 Unknown History iron) tablet (FeroSul) lorazepam 1 mg tablet 1 mg PO TID anxiety 11/09/24 Unknown History methocarbamol 750 mg tablet 1,500 mg PO TID muscle spasm 08/16/25 Unknown History oxycodone 15 mg tablet 15 mg PO Q6H PRN PRN pain 08/16/25 Unknown History pregabalin 150 mg capsule 150 mg PO TID pain 08/16/25 Unknown History semaglutide 2 mg/dose (8 mg/3 mL) 2 mg subcut QWEEK 08/16/25 Unknown History subcutaneous pen injector (Ozempic) diazepam 5 mg tablet (Valium) 5 mg PO TID PRN muscle spasm 5 10/28/25 Unknown Rx days #15 tabs insulin lispro 100 unit/mL 20 unit subcut TID 10/28/25 Unknown History subcutaneous pen (Humalog KwikPen (U-100) Insulin) Allergy/AdvReac Type Severity Reaction Status Date / Time cyclobenzaprine HCl (From Allergy Hives Verified 10/31/25 20:29 Flexeril) venlafaxine (From Effexor) AdvReac Severe hives Verified 10/31/25 20:29 Family History Father CVA (cerebral vascular accident) Heart disease Diabetes Mother Thyroid disorder Surgical History History of delivery H/O arthroscopic knee surgery History of cholecystectomy Social History household members: none Smoking Status: Current every day smoker tobacco type: e-cigarettes how long ago did patient quit smokin PPD smoker, quit x 1 year approximately. second hand exposure: Yes alcohol intake: never substance use type: does not use caffeine: Yes Type: carbonated beverages Number of servings: 1 and coffee Number of servings: 1 ROS ROS ED Review of Systems ROS Unobtainable: due to mental status EXAM Physical Exam Const Vital Signs: 10/31/25 20:25 10/31/25 20:37 10/31/25 20:43 Temperature 98.7 F 98.7 F Temperature Source Oral Oral Pulse Rate 119 H 120 H Respiratory Rate 25 H 25 H Respiratory Pattern Blood Pressure 138/74 H 138/74 H Blood Pressure Mean 95 95 Pulse Ox 96 100 84 Oxygen Delivery Method Non-Rebreather Nasal Cannula Nasal Cannula Oxygen Flow Rate (L/min) 15 6 6 Fraction of Inspired Oxygen (FIO2) 10/31/25 20:43 10/31/25 20:56 10/31/25 21:01 Temperature Temperature Source Pulse Rate Respiratory Rate Respiratory Pattern Tachypnea Blood Pressure Blood Pressure Mean Pulse Ox 95 Oxygen Delivery Method Non-Rebreather Non-Rebreather Oxygen Flow Rate (L/min) 10 Fraction of Inspired Oxygen (FIO2) 10/31/25 21:10 10/31/25 21:12 10/31/25 21:28 Temperature 103.7 F H Temperature Source Core Pulse Rate 130 H 131 H 125 H Respiratory Rate 15 15 16 Respiratory Pattern Blood Pressure 178/73 H 174/55 H Blood Pressure Mean 108 94 Pulse Ox 95 95 96 Oxygen Delivery Method Mechanical Ventilator Mechanical Ventilator Oxygen Flow Rate (L/min) Fraction of Inspired Oxygen (FIO2) 100 10/31/25 21:37 10/31/25 22:00 10/31/25 22:38 Temperature 104.2 F H 104.2 F H 103.6 F H Temperature Source Core Core Core Pulse Rate 123 H 99 106 H Respiratory Rate 16 14 15 Respiratory Pattern Blood Pressure 170/58 H 98/41 L 114/56 L Blood Pressure Mean 95 60 75 Pulse Ox 92 95 95 Oxygen Delivery Method Mechanical Ventilator Mechanical Ventilator Mechanical Ventilator Oxygen Flow Rate (L/min) Fraction of Inspired Oxygen (FIO2) 10/31/25 22:42 10/31/25 23:09 Temperature 103.6 F H 102.8 F H Temperature Source Core Pulse Rate 108 H 106 H Respiratory Rate 15 15 Respiratory Pattern Blood Pressure 119/55 L 123/61 H Blood Pressure Mean 76 81 Pulse Ox 97 97 Oxygen Delivery Method Mechanical Ventilator Oxygen Flow Rate (L/min) Fraction of Inspired Oxygen (FIO2) Patient did respond to the 2 L fluid bolus. Will not need to place a central line. Patient will be admitted to the ICU. Positive well nourished, well developed, obese and unkempt General Appearance ED: unkempt and well developed Nutritional Appearance: obese HEENT HEENT Narrative: Patient saturation 96% on 15 L by nonrebreather. When she was dropped to 6 L she became hypoxic and cyanotic with a sat of 84%. ABG was obtained when she was on nasal cannula. normocephalic and atraumatic; Negative for cyanosis of lips/distal nose Eyes PERRL and EOMs intact bilaterally General Eye ED: Negative for scleral icterus Neck no lymphadenopathy and supple Neck Narrative: Unable to appreciate JVD due to body habitus Resp Resp Narrative: Patient is tachypneic. She has diminished breath sounds. There may be rales. Very difficult to examine. Cardio regular rhythm, S1 normal heart sound, S2 normal heart sound and no murmurs Cardio Narrative: Heart tones are slightly distant. Rate: tachycardic GI non-tender GI Narrative: Exam is limited due to body habitus. Extremity Extremity Narrative: Venous stasis dermatitis bilaterally Neuro No oriented x3 Neuro Narrative: GCS is 3. Psych Psych Narrative: Unable to determine Appearance: unkempt Skin Skin Narrative: Patient is hot to touch and I do not believe a temperature of 98.7. Sepsis Attestation Sepsis Alert: Yes Sepsis Attestation: Agree w/Sepsis Date exam was performed: 10/31/25 Time exam was performed: 21:32 Possible Source of Sepsis: Pulmonary Sepsis Organ Dysfunction Criteria Present: Acute Respiratory Failure (New need for BiPAP/CPAP or MV), PaO2/FiO2 ratio < 300 and New/Unexplained change in mental status Supportive Findings: Fluids were not given initially since she has a history of heart failure. At this time she is not hypotensive she is hypertensive. She was given rectal acetaminophen for her temperature of 103.7 degrees, core temperature Fluid Resuscitation Reason for lesser fluid bolus:: Other (Since there may be some cephalization chest x-ray history of heart failure she did not receive a fluid bolus because her blood pressure was 174/55. Suspect her rapid heart rate is due to her temperature of 103.7.) MDM MDM MDM Narrative Medical decision making narrative: Since patient is unresponsive GCS of 3 ABG was obtained. ABG reveals pCO2 of 57.7 which I presume is chronic since her pH is 7.39. Repeat O2 is 38.7 with a 71% saturation. When this was taken the pulse ox was 84%. In light of this patient was prepped for oral tracheal intubation please see procedure note Lab Data Attestation: I reviewed the patient's lab results. Lab results narrative: White count is elevated 16.9 thousand. She is anemic with an H&H 10.6 and 35.2. There is a shift without bandemia. Urinalysis consistent with infection. The antibiotics patient was started on would cover both respiratory and urologic pathogens. Labs: Laboratory Results - last 24 hr 10/31/25 10/31/25 20:58 21:33 WBC 16.9 H RBC 3.87 L Hgb 10.6 L Hct 35.2 L MCV 91.0 MCH 27.4 MCHC 30.1 L RDW Std Deviation 44.9 H RDW Coeff of Darrion 13.6 Plt Count 233 MPV 9.9 Immature Gran % (Auto) 0.900 Neut % (Auto) 81.9 H Lymph % (Auto) 10.0 L [place] % (Auto) 6.1 Eos % (Auto) 0.6 Baso % (Auto) 0.5 Absolute Neuts (auto) 13.9 H Absolute Lymphs (auto) 1.69 Nucleated RBC % 0.1 PT 15.3 H INR 1.2 APTT 34.0 Sodium 139 Potassium 4.4 Chloride 96 L Carbon Dioxide 29.9 Anion Gap 12 BUN 26 H Creatinine 0.91 Estim Creat Clear Calc 133.87 Est GFR (MDRD) Non-Af 77 BUN/Creatinine Ratio 28.6 H Glucose 146 H Lactic Acid < 1.0 Calcium 8.1 Total Bilirubin 0.45 AST 31 ALT 28 Alkaline Phosphatase 64 Total Creatine Kinase 149 Troponin T High Sens 39 H D Total Protein 7.4 Albumin 3.9 Globulin 3.5 Albumin/Globulin Ratio 1.1 Triglycerides 129 Urine Color Yellow Urine Clarity Cloudy Urine pH 6.0 Ur Specific [place] 1.015 Urine Protein 100 H Urine Glucose (UA) 100 H Urine Ketones Negative Urine Occult Blood 150 H Urine Nitrite Positive H Urine Bilirubin Negative Urine Urobilinogen 1 H Ur Leukocyte Esterase 500 H Urine RBC 0-5 SEEN Urine WBC >100 SEEN Ur Squamous Epith Cells 0-5 SEEN Urine Bacteria 3+ Urine Mucus 0 SEEN Lactate is less than 1. ABG Data Attestation: I personally reviewed and interpreted this ABG as follows: Interpretation: ABG reveals increased AA gradient and respiratory failure due to hypoxia. She has chronic CO2 retention. ABG results: ABG 10/31/25 20:47 Specimen Type ART Sample Site L Radial pH 7.39 Bicarbonate Actual 35.2 H Total CO2 37 Base Excess 10 H O2 Saturation 71 L O2 % 6.0 ABG pCO2 57.7 H ABG pO2 39 L* Meño Test Positive O2 Delivery Device Cannula Vent Mode Not entered Crit Call To/Read Back Yes Blood Gas Notified Whom [facility] Notified Time 20:48:31 Radiography Chest X-Ray - ED: 1 View, Read by ED Physician (Suboptimal film due to the positioning and body habitus. Patient has findings consistent with pneumonia. She has cardiomegaly. There may be some slight cephalization. ET is in proper position. There is no evidence of pneumothorax per) and - (KUB reveals the OG to be in proper position.) CTA PE Study: - Diagnostic Testing: Clinical Impression(s) from Imaging Studies Chest X-Ray 10/31/25 21:45 IMPRESSION: 1. Endotracheal tube tip 2.5 cm above the anitra. 2. Enteric tube terminates appropriately within the stomach. 3. Cardiomegaly with slightly increased vascular congestion and edema. Reading Location: [facility] 1 patient was intubated she had purulent sputum secretions from her trachea. This would support patient have a pneumonia on the chest x-ray. The report documented by radiologist indicates patient has increased vascular congestion and edema. She may have that but she also my opinion has pneumonia in light of a temperature of 103.9 and purulent sputum that was suctioned from her vocal cords/trachea. EKG Initial EKG: Attestation: I personally reviewed and interpreted this EKG as follows: Interpretation: Sinus Tachycardia (Rate is 120. The EKG reveals artifact due to her respiratory distress. NC interval is under 50 ms. QRS duration 82 ms. QT duration is 328 ms. Kinsman was normal) Management Discussion w/another healthcare provider: Hospitalist (The hospitalist was made aware at 2239 of patient. If she does not respond to the first 2 L of fluids we will give an additional liter and discussed with daughter placement of central line if she is the POA.) Treatment and Re-Evaluation Narrative: Patient was treated with Rocephin and doxycycline. Since he is on a propofol drip use of azithromycin may prolong her QT interval for this reason she received doxycycline for atypical coverage. I was informed at 2213 that patient's systolic pressure is less than 90. Will order a 2 L bolus which is not the full 30 cc/kg because of her history of heart failure and what appears to be mild cephalization on the chest x-ray. Procedures Intubations Intubation Method: orotracheal (Patient received 20 mg of etomidate and 50 mg of rocuronium. She then was placed on a propofol drip.) Intubation Verification: Positive color change Intubation Complications: no complications Critical Care Time Critical Care Time: Yes Critical care time (excluding procedures): 30-74 minutes (39), Including time spent:, Discussing w/Patient &/or Family/Professor Of Medicine (Daughter was informed that her mother will need intubation. She walked out prior to intubation. She is the predominant informant.), Arranging Admission or Transfer and Performing Direct Patient Care at Bedside (Patient was ventilated by [id number] since she was unresponsive hypoxic.) Discharge Plan Dx/Rx/DC Orders Clinical Impression: Acute on chronic respiratory failure with hypoxia and hypercapnia, Sepsis, Community acquired pneumonia, Acute encephalopathy, Sinus tachycardia seen on residential monitor, Acute hypotension, Complicated urinary tract infection, 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 Disposition Disposition: Acute Care [facility]
--- NOTE | 2025-10-31 21:45 | RAD_ITS ---
PROCEDURE: CHEST 1 VIEW (PORTABLE) 10/31/2025 REASON FOR EXAM: INTUBATION TECHNIQUE: Frontal view of the chest. COMPARISON: 10/28/2025 FINDINGS: Interval intubation. Endotracheal tube tip projects approximately 2.5 cm above the anitra. Enteric tube courses midline extending below the diaphragm, distal tip terminating in the left upper abdomen in the expected location of the stomach. Prominent cardiomegaly. Central vascular congestion. Slightly increased interstitial and perihilar edema. No sizable pleural effusion or pneumothorax. Degenerative changes of the spine. RAD/Chest 1 View (Portable) IMPRESSION: 1. Endotracheal tube tip 2.5 cm above the anitra. 2. Enteric tube terminates appropriately within the stomach. 3. Cardiomegaly with slightly increased vascular congestion and edema. Reading Location: [id number]
[2025-10-31 21:47] LABS: AST(SGOT) 31 U/L (<=31); Alanine Aminotransfer ALT/SGPT 28 U/L (<=34); Albumin, Serum 3.9 g/dL (3.5-5.0); Alkaline Phosphatase 64 U/L (35-104); Anion Gap 12 (5-15); BUN 26 mg/dL (4-19); BUN/Creat Ratio 28.6 RATIO (10-20); Calcium,Total 8.1 mg/dL (7.6-11.0); Carbon Dioxide 29.9 mmol/L (21.0-32.0); Chloride 96 mmol/L (98-108); Estimated Creatinine Clearance 133.87 ml/min (50-250); Globulin 3.5 g/dL (2.2-4.2); Glucose 146 mg/dL (70-99); Potassium 4.4 mmol/L (3.3-5.1); Troponin T High Sensitivity 39 ng/L (<=14)
--- OUTSIDE RECORDS SUMMARY | 2025-10-31 21:47 | XMS RPT_ITS | CCD ---
Author Organization [facility] Care Team Providers Care Assembler Mechanical Ordnance Name Role Phone Panfilo Oreilly MD Primary Care Provider Shreya Mccray Unavailable [place] Dumont Unavailable Brandee Cotter ([facility]) Unavailable [place] Dumont Unavailable [facility], Robert Unavailable Dr. Tino Oreilly Primary Care Provider Dr. Thomas Garcia Emergency Provider Dr. Mihai Chu Admit Provider Dr. Mihai Chu Attending Provider Dr. Mihai Chu Other Provider Dr. Belem Aponte Attending Provider Dr. Belem Aponte Other Provider Dr. Cody Gonzalez Other Provider Dr. Tino Oreilly Referring Provider Dale ROPING TENDER, ROPING TENDER-C Nelly Attending Provider Dale ROPING TENDER, ROPING TENDER-C Nelly Referring Provider Dale ROPING TENDER, ROPING TENDER-C Nelly Other Provider Dr. [place] Dumont Attending Provider Shreya Mccray MD Unavailable Panfilo Oreilly MD Primary Care Provider Shreya Mccray MD Unavailable [place] Dumont Unavailable Brandee Cotter (Auto Adjudication Specialist) Unavailable [place] Dumont Unavailable [facility], Robert Unavailable Panfilo Oreilly MD Primary Care Provider Shreya Mccray MD Unavailable [place] Dumont Unavailable [place] Dumont Unavailable [facility], Robert Unavailable Dr. Tino Oreilly Primary Care Provider [phone] Dr. Rupert Pitts Emergency Provider Dr. Mihai Chu Admit Provider Dr. Mihai Chu Attending Provider Dr. Mihai Chu Other Provider Dr. Shelbi Eubanks Attending Provider Dr. Shelbi Eubanks Other Provider Panfilo Oreilly MD Primary Care Provider Shreya Mccray MD Unavailable [place] Dumont Unavailable Brandee Cotter (Auto Adjudication Specialist) Unavailable [place] Dumont Unavailable [facility], Robert Unavailable Dr. Tino Oreilly Primary Care Provider [phone] Dr. Rupert Pitts Emergency Provider Dr. Mihai Chu Admit Provider Dr. Mihai Chu Attending Provider Dr. Mihai Chu Other Provider Dr. Shelbi Eubanks Attending Provider Kaylenemoosiczuri, Dr. Mario Other Provider PANFILO OREILLY Referring Unavailab PANFILO Hooker Primary Care Unavailab Dr. Irina Kee Emergency Provider Dr. Chris Gillit Provider Dr. Chris Gill Attending Provider Dr. Chris Gill Other Provider Dr. Liam Wilkes Attending Provider Dr. Liam Wilkes Other Provider Czarniecki [facility], Brissa Unavailable Keo RN, Mimi Unavailable Unavailable Keo RN, Mimi Unavailable Unavailable Elmer RN, Raquel Unavailable UnavailDr. Tino Huntley Primary Care Provider [phone] Dr. Irina Quintero Emergency Provider Dr. Chris Gill Admit Provider Dr. Chris Gill Attending Provider Dr. Chris Gill Other Provider Dr. Liam Wilkes Attending Provider Dr. Liam Wilkes Other Provider Jose SHOOK MACHINE OPERATOR.SALES ORDER ADMINISTRATOR, Dianne Unavailable PANFILO OREILLY Primary Care Unavailab [...] PANFILO OREILLY Primary Care Unavailab wei Borges [facility], Annie Unavailable Son VENTURA, Carlos Unavailable Panfilo Oreilly MD Unavailable Kendra VENTURA, Bharat Unavailable Jose DEMPSEY.SALES ORDER ADMINISTRATOR, Dianne Unavailable Panfilo Oreilly MD Unavailable Dr. Tino Oreilly Primary Care Provider Dr. Irina Quintero Emergency Provider Dr. Chris Gill Admit Provider Dr. Chris Gill Attending Provider Dr. Chris Gill Other Provider Dr. Liam Wilkes Attending Provider Dr. Liam Wilkes Other Provider Dr. Jozef Kaiser Emergency Provider Dr. Faraz Lange Admit Provider Dr. Faraz aLnge Attending Provider Dr. Faraz Lange Other Provider Dr. [place] Dumont Other Provider Dr. Ace Sanders Other Provider Dr. Fadi Box Attending Provider Dr. Fadi Box Other Provider Dr. Jarrett Villalobos Other Provider Unavailab wei Hunter ROPING TENDER, ROPING TENDER-C Nelly Other Provider Dr. Ace Sanders Attending Provider Dr. Ling Neville Other Provider Dr. Ling Neville Attending Provider Panfilo Oreilly MD Unavailable Ling Neville MD Unavailable Kendra VENTURA, Bharat Unavailable [place] Dumont Unavailable [place] Dumont Unavailable [facility], Robert Unavailable Panfilo Oreilly MD Unavailable Chris Gill Unavailable Kendra RN, Bharat Unavailable Chris Gill MD Unavailable Brandee Cotter ([facility]) Unavailable Kendra VENTURA, Bharat Unavailable Ling Neville MD Unavailable Shreya Mccray MD Unavailable Dr. Tino Oreilly Primary Care Provider Dr. Deejay Ornelas [...] Provider Dr. Tino Oreilly Primary Care Provider Dr. Belem Aponte Attending Provider Dr. Belem Aponte Other Provider Dr. Tino Oreilly Primary Care Provider Dr. Irina Quintero Emergency Provider Dr. Liam Wilkes Admit Provider Dr. Liam Wilkes Attending Provider Dr. Liam Wilkes Other Provider Dr. Belem Aponte Attending Provider Dr. Belem Aponte Other Provider [facility], Annie Unavailable Son RN, Carlos Unavailable Kendra RN, Bharat Unavailable Kendra RN, Bharat Unavailable Panfilo Oreilly MD Primary Care Provider [place] Dumont MD Unavailable [phone] Brandee Cotter CNP (Auto Adjudication Specialist) Unavailable [place] Dumont MD Unavailable Brandee Cotter [...] Dr. Jozef Kaiser MD Emergency Department Physician Tg LORA, Dr. Olamide Ritchie Admitting Physician Tg LORA, Dr. Olamide Ritchie Nurse Practitioner Carolynn LORA, Dr. Putnam Attending Physician Unavail able Hakan DPMariam, Dr. Austin Nurse Practitioner Lisa LORA, Dr. Michael Nurse Practitioner Carolynn LORA, Dr. Putnam Nurse Practitioner Unavaila iris Meza DPM, Dr. Talavera Nurse Practitioner Olamide Mas Admitting Unavailable Koram, Ling Clara [...] Attending Unavailabl Belem Costello Attending Unavailable Belem [employer] Unavailable Koram, Ling Clara Attending Unavailable [...] Translations: [CYCLOBENZAPRINE HCL] Drug Allergy 7 Hives [facility] (20 sources) Sertraline; Translations: [SERTRALINE] Drug Allergy 1 Vomiting [facility] Work Phone: (20 sources) venlafaxine Drug Allergy 2 unknown, hives [facility] (1 source) cyclobenzaprine Drug Allergy 5 [facility] Repository (1 source) venlafaxine Drug Allergy 5 [facility] Repository Medications Current Medications Medication Drug Class(es) [...] on above: Take 1 capsule by mo [facility] one time a week. For 12 weeks [...] Suspended Start: 03-05-2018 COMPOUNDED PRE SCRIPTION Indications: LOGAN (obstructive sleep apnea) Wedge pillow [...] Comment on above: Take 1 capsule by [facility] once daily. doxycycline hyclate 100 mg oral capsule (8 sources) Tetracycline-class Drug Start: 08-19-2025 take 1 capsule by mouth twice daily Start: 11-12-2024 take 1 capsule by [facility] twice daily Start: 12-09-2022 take [...] Comment on above: Take 1 tablet by [facility] once daily. ferrous sulfate 325 mg oral tablet (2 sources) Start: 11-09-2024 take 1 tablet by mouth once daily flash glucose scanning reader ([employer] BAO 14 DAY READER) (20 sources) Start: [...] Take 1 tablet by patricia once daily. Hywbohuf-Tbfp-Oj-Calcium -Mins (20 sources) Start: 03-26-2017 Vlqvkspu-Vbqr-Ks -Calcium-Mins Active 1 EACH PO DAILY March 26, 2017 6:01pm Start: 03-26-2017 Multivit-Iron- Pb-Mixqnaj-Arrn Active 1 EACH PO DAILY March 25, 2017 11:00pm Start: 03-26-2017 Multivit-Iron- To-Dbhjfwx-Ykqt Active 1 EACH PO DAILY March 26, 2017 12:00am Dsuihcft-Qfsg-In-Calcium-Min s 1 EACH tablet (2 sources) Start: 03-26-2017 take 1 tablet by mouth once daily Start: 03-26-2017 take 1 tablet by patricia once daily Odzlpiks-Fkst-Un-Calcium-Mins 1 EACH tab let Active 1 NMA [...] on above: Take 1 capsule by mo [facility] once daily. oxyCODONE hydrochloride 15 mg oral [...] for 10 doses. WALKER ROLLATOR SEAT WITH 6 WHEELS - RED (20 sources) Start: 01-23-2022 WALKER ROLLATOR SEAT WITH 6 WHEELS - RED Indications: SOB (shortness of breath) , Oxygen dependent Patient requires large seat 1 Each 01/23/2022 Active Start: 01-23-2022 WALKER ROLLATO R SEAT WITH 6 WHEELS - RED Indications: SOB (shortness of breath) , Oxygen dependent Patient requires large seat 1 Each 0 01/23/2022 Suspended Start: 01-23-2022 WALKER ROLLATO R SEAT WITH 6 WHEELS - RED Indications: [...] Take 1 tablet by mouth once daily. O31-Mssmwqqzisl e Calcium-B6 (20 sources) Start: 10-07-2017 End: 03-01-2020 O68-Oktjdjhrvvwz Calcium-B6 Discontinued 1 EACH PO DAILY October 08, 2017 12:16am March 01, 2020 10:33am Start: 10-07-2017 End: 03-01-2020 E59-Eqavsqpxuoqo Calcium-B6 Discontinued 1 EACH PO DAILY October 07, 2017 12:00am March 01, 2020 9:33am Start: 10-07-2017 End: 03-01-2020 N10-Gpbsxubepxck Calcium-B6 Discontinued 1 EACH PO DAILY October 07, 2017 1:00am March 01, 2020 10:33am J32-Rifmyfuezwoe Calcium-B6 1 EACH tablet (2 sources) Start: 10-07-2017 End: 03-01-2020 take 1 tablet by mouth once daily I33-Dfrzkqbxepnp Calcium-B6 1 EACH tablet Discontinued 1 NMA [...] Comment on above: Take 1 tablet by [facility] once daily. clindamycin 300 mg oral capsule (2 sources) Lincosamide Antibacterial Start: 02-19-20 End: 02-21-20 take 1 capsule by mouth four times daily clindamycin (CLEOCIN) 300 mg capsule Indications: Abscess of groin, left , Non-healing open wound of left groin, initial encounter Take 1 capsule by mouth four times daily. 40 capsule 0 02/18/2023 02/20/2023 Discontinued Start: 01-12-2023 take 1 capsule by [facility] four times daily Clindamycin Hcl (Cleocin Hcl) 300 mg capsule Active 300 MG PO 4 TIMES DAILY 40 January 12, 2023 12:00am Comment on above: Take 1 capsule by [facility] four times daily. Compression Socks, [...] 10-07-2017 docusate sodium 50 mg / sennosides, fpc 8.6 mg oral tablet (20 sources) Start: [...] Discontinued Start: 09-22-2022 take 2 tablets by mo ut once daily Start: 03-31-2022 End: 09-22-2022 take [...] U SC BEFORE MEALS AND AT BEDTIME August 24, 2020 12:00September 14, 2020 1:33pm Please contact the information [...] Patch as dir ected every 24 hours. [place]-3 Fatty Acids (20 sources) Start: 03-26-2017 End: 03-01-2020 take 1000 mg by mouth once daily [place]-3 Fatty Acids Discontinued 1000 MG PO DAILY March 26, 2017 6:01pm March 01, 2020 10:35am Start: 03-26-2017 End: 03-01-2020 take 1000 mg by mouth once daily [place]-3 Fatty Acids Discontinued 1000 MG PO DAILY March 25, 2017 11:00pm March 01, 2020 9:35am Start: 03-26-2017 End: 03-01-2020 take 1000 mg by mouth once daily [place]-3 Fatty Acids Discontinued 1000 MG PO DAILY March 26, 2017 12:00am March 01, 2020 10:35am [place]-3 Fatty Acids 1,000 MG capsule (2 sources) Start: 03-26-2017 End: 03-01-2020 take 1 capsule by mouth once daily [place]-3 Fatty Acids 1,000 MG capsule Discontinued 1000 [...] Discontinu ed 40 MG PO WITH BREAKFAST 6 July 18, 2021 12:00am August 20, 2021 10:28am Start: 08-24-2020 End: 09-14-2020 take 2 tablets by mouth once daily Prednisone 20 MG tablet Discontinued 40 mg PO DAILY@0800 5 August 24, 2020 12:00am September 14, 2020 1:34pm Start: 08-24-2020 End: 09-14-2020 take 40 mg by mouth once daily Prednisone Discontinued 40 MG PO DAILY@0800 August 24, 2020 12:00am September 14, 2020 1:34pm Comment on above: Take [...] This REPLACES Trulicity. 3 mL 5 12/13/2022 07/08/2023 Discontinued Start: 12-13-2022 inject 1 [...] This REPLACES Trulicity. 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 Normal [facility] Comment on above: Performed By: #### L 501.080 #### [facility] Laboratory [address] [place], [address] Wound Cultureon 08-20-2025 WC Copy of report sent to Infection Control Printer [id number] 08/19/25 4014 JENNIFER. Wound Culture Meth. resistant Staph. aureus [...] S Vancomycin Islt VIKTOR 0.5 S Normal [facility] Comment on above: Performed By: #### L 501.080 #### [facility] [address] [place], [place], [id number] Absolute lymphocyte countOrd ered By: Jersey Pradhan on 08-19-2025 Lymphocytes Auto (Unsp spec) [#/Vol] 1.98 10*3/uL 0.83-4.51 [facility] Absolute neutrophil countOrd ered By: Jersey Pradhan on 08-19-2025 Neutrophils (Bld) [#/Vol] 4.9 10*3/uL 2.0-7.7 [facility] Anion gap in Serum or Plasma Ordered By: Jersey Pradhan on 08-19-2025 Anion gap [Moles/Vol] 10 mmol/L 5-15 [facility] Automated lymphocyte count a s percentage of total leukocytesOrdered By: Jersey Pradhan on 08-19-2025 Lymphocytes/100 WBC Auto (Unsp spec) 25.6 % - [facility] BUN/creatinine ratioOrdered By: Jersey Pradhan on 08-19-2025 Urea nitrogen/Creatinine [Mass ratio] 26.4 mg/mg High - [facility] Basic Metabolic Profile (BMP )on 08-19-2025 BUN/CRE 26.4 RATIO High - [facility] Comment on above: Performed By: #### L 499.0043 #### [facility] [address] [place], [address] Calcium [Mass/Vol] 9.5 mg/dL Normal 7.6-11.0 [facility] Comment on above: Performed By: #### L 499.0043 #### [facility] [address] [place], [address] Chloride [Moles/Vol] 89 mmol/L Low 98-108 [facility] Comment on above: Performed By: #### L 499.0043 #### [facility] [address] [place], [address] CO2 [Moles/Vol] 35.7 mmol/L High 21.0-32.0 [facility] Comment on above: Performed By: #### L [id number] #### [facility] [address] [place], [address] Creatinine [Mass/Vol] 0.93 mg/dL Normal 0.70-1.20 [facility] Comment on above: Performed By: #### L [id number] #### [facility] [address] [place], [address] ECRCL 126.36 ml/min Normal 50-250 [facility] Comment on above: Performed By: #### L [id number] #### [facility] [address] [place], [address] GAP 10 Normal 5-15 [facility] Comment on above: Performed By: #### L [id number] #### [facility] [address] [place], [address] GFR/1.73 sq M.predicted among non-blacks MDRD (S/P/Bld) [Vol rate/Area] 76 mL/min/{1.73_m2} Normal >60 [facility] Comment on above: Result Comment: mL/m in/1.73m2 CKD-EPI Creatinine Equation (2020) Performed By: #### L 499.0043 #### [facility] [address] [place], [address] Glucose [Mass/Vol] 397 mg/dL High 70-99 [facility] Comment on above: Performed By: #### L [id number] #### [facility] [address] [place], [address] Potassium [Moles/Vol] 4.0 mmol/L Normal 3.3-5.1 [facility] Comment on above: Performed By: #### L [id number] #### [facility] [address] [place], [address] Sodium [Moles/Vol] 135 mmol/L Normal 133-145 [facility] Comment on above: Performed By: #### L [id number] #### [facility] [address] [place], [address] Urea nitrogen [Mass/Vol] 25 mg/dL High -19 [facility] Comment on above: Performed By: #### L [id number] #### [facility] [address] [place], [address] Basophil percentageOrdered B y: Jersey Pradhan on 08-19-2025 Basophils/100 WBC (Bld) 0.9 % 0-1 [facility] Bedside Glucoseon 08-19-2025 FINGERSTICK GLU 393 mg/dL High 74-106 [facility] Comment on above: Result Comment: CESAR OLEARY OF PATIENT CARE PER NURSING PROTOCOL Performed By: #### L 499.0043 #### [facility] [address] [place], [address] CBC W/Diff, Automatedon 08-01 Absolute Lymph 1.98 X10 3/uL Normal 0.83-4.51 [facility] Comment on above: Performed By: #### L 499.0043 #### [facility] [address] [place], [address] Absolute Neut 4.9 X10 3/uL Normal 2.0-7.7 [facility] Comment on above: Performed By: #### L [id number] #### [facility] [address] [place], [address] Basophils/100 WBC (Bld) 0.9 % Normal 0-1 [facility] Comment on above: Performed By: #### L [id number] #### [facility] [address] [place], [address] Eosinophils/100 WBC (Bld) 3.2 % Normal 0-5 [facility] Comment on above: Performed By: #### L [id number] #### [facility] [address] [place], [address] Erythrocyte distribution width (RBC) [Ratio] 13.2 % Normal 11.6-14.6 [facility] Comment on above: Performed By: #### L 499.0043 #### [facility] [address] [place], [address] Hematocrit (Bld) [Volume fraction] 32.7 % Low 37-47 [facility] Comment on above: Performed By: #### L [id number] #### [facility] [address] [place], [address] Hemoglobin (Bld) [Mass/Vol] 10.2 g/dL Low 12.0-15.0 [facility] Comment on above: Performed By: #### L 499.0043 #### [facility] [address] [place], [address] IG% 1.000 High 0.0-0.9 [facility] Comment on above: Result Comment: IG% - Immature Granulocytes (promyelocytes, myelocytes and metamyelocytes) > 1% indicates that a LEFT SHIFT is Present. Performed By: #### L 499.0043 #### [facility] [address] [place], [address] Lymphocytes/100 WBC (Bld) 25.6 % Normal 19-41 [facility] Comment on above: Performed By: #### L [id number] #### [facility] [address] [place], [address] MCH (RBC) [Entitic mass] 28.3 pg Normal 27.0-32.0 [facility] Comment on above: Performed By: #### L [id number] #### [facility] [address] [place], [address] MCHC (RBC) [Mass/Vol] 31.2 g/dL Low 32-36 [facility] Comment on above: Performed By: #### L 499.0043 #### [facility] [address] [place], [address] MCV (RBC) [Entitic vol] 90.8 fL Normal 81-99 [facility] Comment on above: Performed By: #### L [id number] #### [facility] [address] [place], [address] Monocytes/100 WBC (Bld) 6.0 % Normal 0-10 [facility] Comment on above: Performed By: #### L [id number] #### [facility] [address] [place], [address] Neutrophils/100 WBC (Bld) 63.3 % Normal 47-70 [facility] Comment on above: Performed By: #### L [id number] #### [facility] [address] [place], [address] Nucleated RBC (Bld) [#/Vol] 0 10*3/uL Normal 0-5 [facility] Comment on above: Performed By: #### L [id number] #### [facility] [address] [place], [address] Platelet mean volume (Bld) [Entitic vol] 10.0 fL Normal 6.2-12.0 [facility] Comment on above: Performed By: #### L [id number] #### [facility] [address] [place], [address] Platelets (Bld) [#/Vol] 277 10*3/uL Normal 150-450 [facility] Comment on above: Performed By: #### L [id number] #### [facility] [address] [place], [address] RBC (Bld) [#/Vol] 3.60 10*6/uL Low 4.2-5.4 [facility] Comment on above: Performed By: #### L [id number] #### [facility] [address] [place], [address] RDW SD 43.4 fl Normal 35.1-43.9 [facility] Comment on above: Performed By: #### L [id number] #### [facility] [address] [place], [address] WBC (Bld) [#/Vol] 7.7 10*3/uL Normal 4.4-11.0 [facility] Comment on above: Performed By: #### L [id number] #### [facility] [address] [place], [address] Carbon dioxide, total [Moles /volume] in Central venous bloodOrdered By: Jersey Pradhan on 08-19-2025 CO2 [Moles/Vol] 35.7 mmol/L High 21.0-32.0 [facility] Chloride assayOrdered By: Jonathan Pradhan on 08-19-2025 Chloride [Moles/Vol] 89 mmol/L Low 98-108 [facility] Eosinophil percentageOrdered By: Jersey Pradhan on 08-19-2025 Eosinophils/100 WBC (Bld) 3.2 % 0-5 [facility] Erythrocyte distribution wid th ratioOrdered By: Jersey Pradhan on 08-19-2025 Erythrocyte distribution width (RBC) [Ratio] 13.2 % 11.6-14.6 [facility] Erythrocyte distribution wid th standard deviationOrdered By: Jersey Pradhan on 08-19-2025 Erythrocyte distribution width (RBC) [Ratio] 43.4 fl 35.1-43.9 [facility] Glomerular filtration rate ( GFR) estimation/1.73 sq m using serum, plasma, or whole bOrdered By: Jersey Pradhan on 08-19-2025 GFR/1.73 sq M.predicted among non-blacks MDRD (S/P/Bld) [Vol rate/Area] 76 mL/min/{1.73_m2} >60 [facility] Comment on above: mL/min/1.73m2 CKD-EP I Creatinine Equation (2020) Glucose measurement at bedsi deOrdered By: Jersey Pradhan on 08-19-2025 Glucose [Mass/Vol] 371 mg/dL High 74-106 [facility] Comment on above: MANAGEMENT OF PATIEN T CARE PER NURSING PROTOCOL Hematocrit Auto (Bld) [Volum e fraction]Ordered By: Jersey Pradhan on 08-19-2025 Hematocrit (Bld) [Volume fraction] 32.7 % Low 37-47 [facility] Hemoglobin measurementOrdere d By: Jersey Pradhan on 08-19-2025 Hemoglobin (Bld) [Mass/Vol] 10.2 g/dL Low 12.0-15.0 [facility] Immature granulocytes/100 WB C Auto (Bld)Ordered By: Jersey Pradhan on 08-19-2025 Immature granulocytes/100 WBC (Bld) 1.000 % High 0.0-0.9 [facility] Comment on above: IG% - Immature Granu locytes (promyelocytes, myelocytes and metamyelocytes) > 1% indicates that a LEFT SHIFT is Present. MCV (mean corpuscular volume ) determinationOrdered By: Jersey Pradhan on 08-19-2025 MCV (RBC) [Entitic vol] 90.8 fL 81-99 [facility] Mean corpuscular hemoglobin (MCH) determinationOrdered By: Jersey Pradhan on 08-19-2025 MCH (RBC) [Entitic mass] 28.3 pg 27.0-32.0 [facility] Mean corpuscular hemoglobin concentration (MCHC) determinationOrdered By: Jersey Pradhan on 08-19-2025 MCHC (RBC) [Mass/Vol] 31.2 g/dL Low 32-36 [facility] Mean platelet volume determi nationOrdered By: Jersey Pradhan on 08-19-2025 Platelet mean volume (Bld) [Entitic vol] 10.0 fL 6.2-12.0 [facility] Monocyte percentageOrdered B y: Jersey Pradhan on 08-19-2025 Monocytes/100 WBC (Bld) 6.0 % 0-10 [facility] Neutrophil percentageOrdered By: Jersey Pradhan on 08-19-2025 Neutrophils/100 WBC (Bld) 63.3 % 47-70 [facility] Nucleated red blood cell per centageOrdered By: Jersey Pradhan on 08-19-2025 Nucleated RBC/100 WBC (Bld) [Ratio] 0 % 0-5 [facility] Platelet countOrdered By: Jonathan Pradhan on 08-19-2025 Platelets (Bld) [#/Vol] 277 10*3/uL 150-450 [facility] Potassium measurement (mass/ volume)Ordered By: Jersey Pradhan on 08-19-2025 Potassium (Unsp spec) [Mass/Vol] 4.0 mmol/L 3.3-5.1 [facility] RBC Auto (Bld) [#/Vol]Ordere d By: Jersey Pradhan on 08-19-2025 RBC (Bld) [#/Vol] 3.60 10*6/uL Low 4.2-5.4 [facility] Serum creatinine measurement (mass/volume)Ordered By: Jersey Pradhan on 08-19-2025 Creatinine [Mass/Vol] 0.93 mg/dL 0.70-1.20 [facility] Serum glucose measurement (m ass/volume)Ordered By: Jersey Pradhan on 08-19-2025 Glucose [Mass/Vol] 397 mg/dL High 70-99 [facility] Serum or plasma calcium yunior urement (mass/volume)Ordered By: Jersey Pradhan on 08-19-2025 Calcium [Mass/Vol] 9.5 mg/dL 7.6-11.0 [facility] Serum or plasma urea nitroge n measurement (mass/volume)Ordered By: Jersey Pradhan on 08-19-2025 Urea nitrogen [Mass/Vol] 25 mg/dL High 4-19 [facility] Sodium levelOrdered By: Ceferino Pradhan on 08-19-2025 Sodium [Moles/Vol] 135 mmol/L 133-145 [facility] Trough vancomycin levelOrder ed By: Olamide Mas on 08-19-2025 Vancomycin trough [Mass/Vol] 19.6 ug/mL High 5.0-15.0 [facility] Comment on above: Recommended goal tro ugh [...] therapy recommended for serious lifethreatening infections include:- Ebrtalqazn-Mnwykqgmcqhg-Zeojgmhue (Ventilator/Healtcare Associated)-Sepsis PLEASE CONTACT PHARMACY SERVICES (#5802) FOR INTERPRETATIONOF RESULTS. Vancomycin, Trough Levelon 0 08-19-2025 VANCO, TROUGH 19.6 ug/mL High 5.0-15.0 [facility] Comment on above: Order Comment: Comme nts: Trough to be drawn 30 mins prior to scheduled [id number] Result Comment: Jefferson mmended goal trough ranges [...] (Ventilator/Healtcare Associated) -Sepsis PLEASE CONTACT PHARMACY SERVICES (#[id number]) FOR INTERPRETATION OF RESULTS. Performed By: #### L 499.0043 #### [facility] Laboratory [address] [place], [address] White blood cell (WBC) count Ordered By: Jersey Pradhan on 08-19-2025 WBC (Bld) [#/Vol] 7.7 10*3/uL 4.4-11.0 [facility] Basic Metabolic Profile (BMP )on 08-18-2025 BUN/CRE 26.4 RATIO High 10-20 [facility] Comment on above: Performed By: #### L 501.080 #### [facility] [address] [place], [address] Calcium [Mass/Vol] 8.3 mg/dL Normal 7.6-11.0 [facility] Comment on above: Performed By: #### L 501.080 #### [facility] [address] [place], [address] Chloride [Moles/Vol] 93 mmol/L Low 98-108 [facility] Comment on above: Performed By: #### L 501.080 #### [facility] [address] [place], [address] CO2 [Moles/Vol] 35.0 mmol/L High 21.0-32.0 [facility] Comment on above: Performed By: #### L 501.080 #### [facility] [address] [place], [address] Creatinine [Mass/Vol] 0.92 mg/dL Normal 0.70-1.20 [facility] Comment on above: Performed By: #### L 501.080 #### [facility] [address] [place], [address] ECRCL 127.12 ml/min Normal 50-250 [facility] Comment on above: Performed By: #### L 501.080 #### [facility] [address] [place], [address] GAP 11 Normal 5-15 [facility] Comment on above: Performed By: #### L 501.080 #### [facility] [address] [place], [address] GFR/1.73 sq M.predicted among non-blacks MDRD (S/P/Bld) [Vol rate/Area] 76 mL/min/{1.73_m2} Normal >60 [facility] Comment on above: Result Comment: mL/m in/1.73m2 CKD-EPI Creatinine Equation (2020) Performed By: #### L 501.080 #### [facility] [address] [place], [address] Glucose [Mass/Vol] 288 mg/dL High 70-99 [facility] Comment on above: Performed By: #### L 501.080 #### [facility] [address] [place], [address] Potassium [Moles/Vol] 3.8 mmol/L Normal 3.3-5.1 [facility] Comment on above: Performed By: #### L 501.080 #### [facility] [address] [place], [address] Sodium [Moles/Vol] 139 mmol/L Normal 133-145 [facility] Comment on above: Performed By: #### L 501.080 #### [facility] [address] [place], [address] Urea nitrogen [Mass/Vol] 24 mg/dL High 4-19 [facility] Comment on above: Performed By: #### L 501.080 #### [facility] [address] [place], [address] Bedside Glucoseon 08-18-2025 FINGERSTICK GLU 458 mg/dL Invalid Interpretation Code 74-106 [facility] Comment on above: Result Comment: Dr Pedro watts Followed MANAGEMENT OF PATIENT CARE PER NURSING PROTOCOL Performed By: #### L 501.080 #### [facility] [address] [place], [address] FINGERSTICK GLU 460 mg/dL Invalid Interpretation Code 74-106 [facility] Comment on above: Result Comment: Dr Pedro watts Followed MANAGEMENT OF PATIENT CARE PER NURSING PROTOCOL Performed By: #### L 501.080 #### [facility] [address] [place], [address] FINGERSTICK GLU 456 mg/dL Invalid Interpretation Code 74-106 [facility] Comment on above: Result Comment: Dr Pedro watts Followed MANAGEMENT OF PATIENT CARE PER NURSING PROTOCOL Performed By: #### L 501.080 #### [facility] [address] [place], [address] FINGERSTICK GLU 341 mg/dL High 74-106 [facility] Comment on above: Result Comment: CESAR GEMENT OF PATIENT CARE PER NURSING PROTOCOL Performed By: #### L 501.080 #### [facility] [address] [place], [address] FINGERSTICK GLU 279 mg/dL High -106 [facility] Comment on above: Result Comment: CESAR GEMENT OF PATIENT CARE PER NURSING PROTOCOL Performed By: #### L 509.7001 #### [facility] Laboratory [address] [place], [address] CBC W/Diff, Automatedon 09-12 08-2024 Absolute Lymph 1.89 X10 3/uL Normal 0.83-4.51 [facility] Comment on above: Performed By: #### L 501.080 #### [facility] Laboratory [address] [place], [address] Absolute Neut 4.6 X10 3/uL Normal 2.0-7.7 [facility] Comment on above: Performed By: #### L 501.080 #### [facility] [address] [place], [address] Basophils/100 WBC (Bld) 1.0 % Normal 0-1 [facility] Comment on above: Performed By: #### L 501.080 #### [facility] [address] [place], [address] Eosinophils/100 WBC (Bld) 3.2 % Normal 0-5 [facility] Comment on above: Performed By: #### L 501.080 #### [facility] [address] [place], [address] Erythrocyte distribution width (RBC) [Ratio] 13.5 % Normal 11.6-14.6 [facility] Comment on above: Performed By: #### L 501.080 #### [facility] Laboratory [address] [place], [address] Hematocrit (Bld) [Volume fraction] 29.6 % Low 37-47 [facility] Comment on above: Performed By: #### L 501.080 #### [facility] [address] [place], [address] Hemoglobin (Bld) [Mass/Vol] 9.2 g/dL Low 12.0-15.0 [facility] Comment on above: Performed By: #### L 501.080 #### [facility] [address] [place], [address] IG% 0.400 Normal 0.0-0.9 [facility] Comment on above: Result Comment: IG% - Immature Granulocytes (promyelocytes, myelocytes and metamyelocytes) > 1% indicates that a LEFT SHIFT is Present. Performed By: #### L 501.080 #### [facility] [address] [place], [address] Lymphocytes/100 WBC (Bld) 26.4 % Normal 19-41 [facility] Comment on above: Performed By: #### L 501.080 #### [facility] [address] [place], [address] MCH (RBC) [Entitic mass] 28.6 pg Normal 27.0-32.0 [facility] Comment on above: Performed By: #### L 501.080 #### [facility] [address] [place], [address] MCHC (RBC) [Mass/Vol] 31.1 g/dL Low 32-36 [facility] Comment on above: Performed By: #### L 501.080 #### [facility] [address] [place], [address] MCV (RBC) [Entitic vol] 91.9 fL Normal 81-99 [facility] Comment on above: Performed By: #### L 501.080 #### [facility] [address] [place], [address] Monocytes/100 WBC (Bld) 5.0 % Normal 0-10 [facility] Comment on above: Performed By: #### L 501.080 #### [facility] [address] [place], [address] Neutrophils/100 WBC (Bld) 64.0 % Normal 47-70 [facility] Comment on above: Performed By: #### L 501.080 #### [facility] [address] [place], [address] Nucleated RBC (Bld) [#/Vol] 0 10*3/uL Normal 0-5 [facility] Comment on above: Performed By: #### L 501.080 #### [facility] [address] [place], [address] Platelet mean volume (Bld) [Entitic vol] 9.9 fL Normal 6.2-12.0 [facility] Comment on above: Performed By: #### L 501.080 #### [facility] [address] [place], [address] Platelets (Bld) [#/Vol] 251 10*3/uL Normal 150-450 [facility] Comment on above: Performed By: #### L 501.080 #### [facility] [address] [place], [address] RBC (Bld) [#/Vol] 3.22 10*6/uL Low 4.2-5.4 [facility] Comment on above: Performed By: #### L 501.080 #### [facility] [address] [place], [address] RDW SD 45.6 fl High 35.1-43.9 [facility] Comment on above: Performed By: #### L 501.080 #### [facility] [address] [place], [address] WBC (Bld) [#/Vol] 7.2 10*3/uL Normal 4.4-11.0 [facility] Comment on above: Performed By: #### L 501.080 #### [facility] [address] [place], [address] Magnesiumon 08-18-2025 Magnesium [Mass/Vol] 1.7 mg/dL Normal 1.5-2.2 [facility] Comment on above: Performed By: #### L 501.080 #### [facility] [address] [place], [address] Magnesium measurement (mass/ volume)Ordered By: Jersey Pradhan on 08-18-2025 Magnesium (Unsp spec) [Mass/Vol] 1.7 mg/dL 1.5-2.2 [facility] Phosphoruson 08-18-2025 Phosphate [Mass/Vol] 3.1 mg/dL Normal 2.7-4.5 [facility] Comment on above: Performed By: #### L 501.080 #### [facility] [address] [place], [address] Serum or plasma vancomycin m easurement (mass/volume)Ordered By: Olamide Mas on 08-18-2025 Vancomycin [Mass/Vol] 12.9 ug/mL 0.0-15.0 [facility] Comment on above: VANCOMYCIN STANDARD DRUG THERAPY: CRITICAL VALUE IS > 15.0 mg/L VANCOMYCIN HIGH INTENSITY THERAPY: CRITICAL VALUE IS > 20.0 mg/L PLEASE CONTACT PHARMACY SERVICES (#[id number]) FOR INTERPRETATIONOF RESULTS. THIS RESULT DOES NOT REPRESENT A PEAK OR TROUGHLEVEL FOR THIS DRUG. Vancomycin, Random Levelon 0 08-18-2025 VANCO, RANDOM 12.9 ug/mL Normal 0.0-15.0 [facility] Comment on above: Result Comment: VANC OMYCIN STANDARD DRUG THERAPY: CRITICAL VALUE IS > 15.0 mg/L VANCOMYCIN HIGH INTENSITY THERAPY: CRITICAL VALUE IS > 20.0 mg/L PLEASE CONTACT PHARMACY SERVICES (#1450) FOR INTERPRETATION OF RESULTS. THIS RESULT DOES NOT REPRESENT A PEAK OR TROUGH LEVEL FOR THIS DRUG. Performed By: #### L 499.0043 #### [facility] [address] [place], [address] Bedside Glucoseon 08-17-2025 FINGERSTICK GLU 337 mg/dL High [address] [place] [address] Comment on above: Result Comment: CESAR GEMENT OF PATIENT CARE PER NURSING PROTOCOL Performed By: #### L 501.080 #### [facility] [address] [place], [address] FINGERSTICK GLU 383 mg/dL [address] Comment on above: Result Comment: CESAR GEMENT OF PATIENT CARE PER NURSING PROTOCOL Performed By: #### L 501.080 #### [facility] [address] [place], [address] FINGERSTICK GLU 301 mg/dL [address] Comment on above: Result Comment: CESAR GEMENT OF PATIENT CARE PER NURSING PROTOCOL Performed By: #### L 501.080 #### [facility] [address] [place], [address] FINGERSTICK GLU 305 mg/dL [address] Comment on above: Result Comment: CESAR GEMENT OF PATIENT CARE PER NURSING PROTOCOL Performed By: #### L 499.0043 #### [facility] [address] [place], [address] FINGERSTICK GLU 382 mg/dL High 74-106 [facility] Comment on above: Result Comment: CESAR GEMENT OF PATIENT CARE PER NURSING PROTOCOL Performed By: #### L 501.080 #### [facility] [address] [place], [address] FINGERSTICK GLU 395 mg/dL High 74-106 [facility] Comment on above: Result Comment: CESAR GEMENT OF PATIENT CARE PER NURSING PROTOCOL Performed By: #### L 501.080 #### [facility] [address] [place], [address] Bilirubin, totalOrdered By: Olamide Mas on 08-17-2025 Bilirubin [Mass/Vol] 0.19 mg/dL 0.00-1.30 [facility] CBC W/Diff, Automatedon 08-01 Absolute Lymph 1.89 X10 3/uL Normal 0.83-4.51 [facility] Comment on above: Order Comment: RESUL T(S) PREVIOUSLY REPORTED ON MANUAL REQUISITION DURINGDOWNTIME. Performed By: #### L 501.080 #### [facility] [address] [place], [address] Absolute Neut 6.1 X10 3/uL Normal 2.0-7.7 [facility] Comment on above: Order Comment: RESUL T(S) PREVIOUSLY REPORTED ON MANUAL REQUISITION DURINGDOWNTIME. Performed By: #### L 501.080 #### [facility] [address] [place], [address] Basophils/100 WBC (Bld) 1.0 % Normal 0-1 [facility] Comment on above: Order Comment: RESUL T(S) PREVIOUSLY REPORTED ON MANUAL REQUISITION DURINGDOWNTIME. Performed By: #### L 501.080 #### [facility] [address] [place], [address] Eosinophils/100 WBC (Bld) 2.5 % Normal 0-5 [facility] Comment on above: Order Comment: RESUL T(S) PREVIOUSLY REPORTED ON MANUAL REQUISITION DURINGDOWNTIME. Performed By: #### L 501.080 #### [facility] [address] [place], [address] IG% 0.500 Normal 0.0-0.9 [facility] Comment on above: Order Comment: RESUL T(S) PREVIOUSLY REPORTED ON MANUAL REQUISITION DURINGDOWNTIME. Result Comment: IG% - Immature Granulocytes (promyelocytes, myelocytes and metamyelocytes) > 1% indicates that a LEFT SHIFT is Present. Performed By: #### L 501.080 #### [facility] [address] [place], [address] Lymphocytes/100 WBC (Bld) 21.7 % Normal 19-41 [facility] Comment on above: Order Comment: RESUL T(S) PREVIOUSLY REPORTED ON MANUAL REQUISITION DURINGDOWNTIME. Performed By: #### L 501.080 #### [facility] [address] [place], [address] Monocytes/100 WBC (Bld) 4.7 % Normal 0-10 [facility] Comment on above: Order Comment: RESUL T(S) PREVIOUSLY REPORTED ON MANUAL REQUISITION DURINGDOWNTIME. Performed By: #### L 501.080 #### [facility] [address] [place], [address] Neutrophils/100 WBC (Bld) 69.6 % Normal 47-70 [facility] Comment on above: Order Comment: RESUL T(S) PREVIOUSLY REPORTED ON MANUAL REQUISITION DURINGDOWNTIME. Performed By: #### L 501.080 #### [facility] [address] [place], [address] Platelet mean volume (Bld) [Entitic vol] 10.1 fL Normal 6.2-12.0 [facility] Comment on above: Order Comment: RESUL T(S) PREVIOUSLY REPORTED ON MANUAL REQUISITION DURINGDOWNTIME. Performed By: #### L 501.080 #### [facility] [address] [place], [address] Erythrocyte distribution width (RBC) [Ratio] 13.7 % Normal 11.6-14.6 [facility] Comment on above: Order Comment: RESUL T(S) PREVIOUSLY REPORTED ON MANUAL REQUISITION DURINGDOWNTIME. Performed By: #### L 501.080 #### [facility] [address] [place], [address] Hematocrit (Bld) [Volume fraction] 30.2 % Low 37-47 [facility] Comment on above: Order Comment: RESUL T(S) PREVIOUSLY REPORTED ON MANUAL REQUISITION DURINGDOWNTIME. Performed By: #### L 501.080 #### [facility] [address] [place], [address] Hemoglobin (Bld) [Mass/Vol] 9.3 g/dL Low 12.0-15.0 [facility] Comment on above: Order Comment: RESUL T(S) PREVIOUSLY REPORTED ON MANUAL REQUISITION DURINGDOWNTIME. Performed By: #### L 501.080 #### [facility] [address] [place], [address] MCH (RBC) [Entitic mass] 28.3 pg Normal 27.0-32.0 [facility] Comment on above: Order Comment: RESUL T(S) PREVIOUSLY REPORTED ON MANUAL REQUISITION DURINGDOWNTIME. Performed By: #### L 501.080 #### [facility] [address] [place], [address] MCHC (RBC) [Mass/Vol] 30.8 g/dL Low 32-36 [facility] Comment on above: Order Comment: RESUL T(S) PREVIOUSLY REPORTED ON MANUAL REQUISITION DURINGDOWNTIME. Performed By: #### L 501.080 #### [facility] [address] [place], [address] MCV (RBC) [Entitic vol] 91.8 fL Normal 81-99 [facility] Comment on above: Order Comment: RESUL T(S) PREVIOUSLY REPORTED ON MANUAL REQUISITION DURINGDOWNTIME. Performed By: #### L 501.080 #### [facility] Laboratory [address] [place], [address] Platelets (Bld) [#/Vol] 221 10*3/uL Normal 150-450 [facility] Comment on above: Order Comment: RESUL T(S) PREVIOUSLY REPORTED ON MANUAL REQUISITION DURINGDOWNTIME. Performed By: #### L 501.080 #### [facility] [address] [place], [address] RBC (Bld) [#/Vol] 3.29 10*6/uL Low 4.2-5.4 [facility] Comment on above: Order Comment: RESUL T(S) PREVIOUSLY REPORTED ON MANUAL REQUISITION DURINGDOWNTIME. Performed By: #### L 501.080 #### [facility] [address] [place], [address] RDW SD 46.1 fl High 35.1-43.9 [facility] Comment on above: Order Comment: RESUL T(S) PREVIOUSLY REPORTED ON MANUAL REQUISITION DURINGDOWNTIME. Performed By: #### L 501.080 #### [facility] [address] [place], [address] WBC (Bld) [#/Vol] 8.7 10*3/uL Normal 4.4-11.0 [facility] Comment on above: Order Comment: RESUL T(S) PREVIOUSLY REPORTED ON MANUAL REQUISITION DURINGDOWNTIME. Performed By: #### L 501.080 #### [facility] [address] [place], [address] Calculated very low density lipoprotein (VLDL) cholesterol measurementOrdered By: Olamide Mas on 08-17-2025 Calculated very low density lipoprotein (VLDL) cholesterol measurement 44 mg/dL High 5-40 [facility] Comprehensive Metabolic Prof ilon 08-17-2025 Albumin [Mass/Vol] 3.5 g/dL Normal 3.5-5.0 [facility] Comment on above: Performed By: #### L 501.080 #### [facility] [address] [place], [address] Albumin/Globulin [Mass ratio] 1.1 {ratio} Normal 0.9-2.4 [facility] Comment on above: Performed By: #### L 501.080 #### [facility] [address] [place], [address] ALK PHOS 76 U/L Normal 35-104 [facility] Comment on above: Performed By: #### L 501.080 #### [facility] [address] [place], [address] ALT [Catalytic activity/Vol] 20 U/L Normal <=34 [facility] Comment on above: Performed By: #### L 501.080 #### [facility] [address] [place], [address] AST [Catalytic activity/Vol] 19 U/L Normal <=31 [facility] Comment on above: Performed By: #### L 501.080 #### [facility] [address] [place], [address] Bilirubin [Mass/Vol] 0.19 mg/dL Normal 0.00-1.30 [facility] Comment on above: Performed By: #### L 501.080 #### [facility] [address] [place], [address] BUN/CRE 29.9 RATIO High 10-20 [facility] Comment on above: Performed By: #### L 501.080 #### [facility] [address] [place], [address] Calcium [Mass/Vol] 8.1 mg/dL Normal 7.6-11.0 [facility] Comment on above: Performed By: #### L 501.080 #### [facility] [address] [place], [address] Chloride [Moles/Vol] 92 mmol/L Low 98-108 [facility] Comment on above: Performed By: #### L 501.080 #### [facility] [address] [place], [address] CO2 [Moles/Vol] 28.0 mmol/L Normal 21.0-32.0 [facility] Comment on above: Performed By: #### L 501.080 #### [facility] [address] [place], [address] Creatinine [Mass/Vol] 1.03 mg/dL Normal 0.70-1.20 [facility] Comment on above: Performed By: #### L 501.080 #### [facility] [address] [place], [address] ECRCL 113.55 ml/min Normal 50-250 [facility] Comment on above: Performed By: #### L 501.080 #### [facility] [address] [place], [address] GAP 15 Normal 5-15 [facility] Comment on above: Performed By: #### L 501.080 #### [facility] [address] [place], [address] GFR/1.73 sq M.predicted among non-blacks MDRD (S/P/Bld) [Vol rate/Area] 67 mL/min/{1.73_m2} Normal >60 [facility] Comment on above: Result Comment: mL/m in/1.73m2 CKD-EPI Creatinine Equation (2020) Performed By: #### L 501.080 #### [facility] [address] [place], [address] Globulin (S) [Mass/Vol] 3.2 g/dL Normal 2.2-4.2 [facility] Comment on above: Performed By: #### L 501.080 #### [facility] [address] [place], [address] Glucose [Mass/Vol] 383 mg/dL High 70-99 [facility] Comment on above: Performed By: #### L 501.080 #### [facility] [address] [place], [address] Potassium [Moles/Vol] 3.9 mmol/L Normal 3.3-5.1 [facility] Comment on above: Performed By: #### L 501.080 #### [facility] [address] [place], [address] Sodium [Moles/Vol] 135 mmol/L Normal 133-145 [facility] Comment on above: Performed By: #### L 501.080 #### [facility] [address] [place], [address] T PROT 6.7 g/dL Normal 5.9-8.4 [facility] Comment on above: Performed By: #### L 501.080 #### [facility] [address] [place], [address] Urea nitrogen [Mass/Vol] 31 mg/dL High 4-19 [facility] Comment on above: Performed By: #### L 501.080 #### [facility] [address] [place], [address] Electrocardiogram reportOrde red By: Audi Gamino on 08-17-2025 EKG study [facility] Cardiovascular Services [address] [place] [address] 12 Lead EKG 08/16/25 1905 MR#: [id number] Acct: [id number] Name: MACARIO WALLACE Rep #:[id number] : 1975 50 From: Audi Gamino MD Attending Dr: Dr. Jersey Pradhan MD Status: ADM IN Ordering Dr: Jozef Kaiser MD Date: 08/16 Location: [facility] Sex: F C Admitted: 08/16/25 Test Reason : DYSRHYTHMIA Blood Pressure : */* mmHG Vent. Rate : 93 BPM Atrial Rate : 93 BPM P-R Int : 140 ms QRS Dur : 86 ms QT Int : 368 ms P-R-T Axes : 14 -2 65 degrees QTcB Int : 457 ms Normal sinus rhythm Normal ECG Confirmed by AUDI GAMINO MD ([id number]), sports editor RANDI BROWNLEE ([id number]) on 08/17/2025 9:41:15 AM Referred By: Confirmed By: AUDI GAMINO MD 08/17/25 0941 Date _ Audi Gamino MD CC: Dr. Delmy Solorzano MD; Dr. Jersey Pradhan MD; Dr. Jozef Kaiser MD ~ Signed [facility] Other Phone: Foot 2 Viewson 08-17-2025 Foot 2 Views [facility] Imaging Services [address] [place] [address] Foot 2 Views MR#: [id number] Acct: [id number] Name: MACARIO WALLACE Rep #: [id number] : 1975 F 50 From: Dylan summers MD PCP: Dr. Delmy Solorzano MD Status: ADM IN Study: Foot 2 Views Date of Exam: 08/17/25 Exam# [id number] Ordering Dr: Jersey Pradhan MD PROCEDURE: FOOT [...] prominent overlying the great toe. Reading Location: [place] [address] CC: Dr. Delmy Solorzano MD; Dr. Jersey Pradhan MD 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: Signed Normal [facility] Gram Stainon 08-17-2025 GS Gram Stain Rare Gram negative rods Rare White Blood Cells No Epithelial cells Normal [facility] Comment on above: Performed By: #### L 400.0001 #### [facility] Laboratory [address] [place], [place], [address] Hemoglobin A1con 08-17-2025 HbA1c (Bld) [Mass fraction] 12.5 % High <=5.6 [facility] Comment on above: Result Comment: Norm al < 5.7 % Prediabetic 5.7 - 6.4 % Diabetic >or= 6.5 % Please note range changes. Performed By: #### L 501.080 #### [facility] Laboratory [address] [place], [place], [address] Hemoglobin A1c percentageOrd ered By: Olamide Mas on 08-17-2025 HbA1c (Bld) [Mass fraction] 12.5 % High <5.7 [facility] Comment on above: Normal < 5.7 % Predi abetic 5.7 - 6.4 % Diabetic >or= 6.5 % Please note range changes. L501.4021on 08-17-2025 Trop T High Sen 37 ng/L High <=14 [facility] Comment on above: Performed By: #### L 501.080 #### [facility] Laboratory [address] [place], [place], [address] L509.7001on 08-17-2025 Procalcitonin 0.13 ng/mL High <=0.10 [facility] Comment on above: Result Comment: Inte rpretation: [...] patient. Performed By: #### L 509.7001 #### [facility] Laboratory [address] [place], [place], [address] LDL calc ser/plasOrdered By: Olamide Tg on 08-17-2025 Cholesterol in LDL [Mass/Vol] 74 mg/dL [facility] Comment on above: Nkkbhfpglh=106-589 m g/dL & Higher Iifz=957 mg/dL or greaterFriedwald Equation for LDL-C Laboratory - Chemistry and C hemistry - challengeOrdered By: Olamide Mas on 08-17-2025 AST [Catalytic activity/Vol] 19 U/L <32 [facility] Lipid Profileon 08-17-2025 CHOL:HDL 5.14 Normal [facility] Comment on above: Performed By: #### L 501.080 #### [facility] Laboratory [address] [facility] [id number] (664) Cholesterol [Mass/Vol] 146 mg/dL Normal <=200 [facility] Comment on above: Result Comment: Chol esterol level, Desirable <200 mg/dL Borderline high cholesterol 200-239 mg/dL High cholesterol >=240 mg/dL Recommendations of the NCEP Adult Treatment Panel for the following risk-cutoff thresholds for the [place] population. Performed By: #### L 501.080 #### [facility] Laboratory [address] [place], [place], [address] Cholesterol in HDL [Mass/Vol] 28 mg/dL Low [facility] Comment on above: Result Comment: Myla onal Cholesterol Education Program (NCEP) guidelines: <40 mg/dL: Low HDL-cholesterol (major risk factor for CHD) >= 60 mg/dL: High HDL-cholesterol (negative risk factor for CHD) HDL-cholesterol is affected by a number of factors, e.g. smoking, exercise, hormones, sex and age. Performed By: #### L 501.080 #### [facility] Laboratory [address] [place], [place], [address] Cholesterol in LDL [Mass/Vol] 74 mg/dL Normal [facility] Comment on above: Result Comment: Bord iethss=216-721 mg/dL Higher Afto=317 mg/dL or greater Friedwald Equation for LDL-C Performed By: #### L 501.080 #### [facility] Laboratory [address] [place], [place], [address] Cholesterol in VLDL [Mass/Vol] 44 mg/dL High 5-40 [facility] Comment on above: Performed By: #### L 501.080 #### [facility] Laboratory [address] [place], [place], [address] Triglyceride [Mass/Vol] 218 mg/dL High [facility] Comment on above: Result Comment: The drugs N-Acetylcysteine and Metamizole may falsely depress this assay. Normal range: <150 mg/dL Borderline High: 150-199 mg/dL High: 200-499 mg/dL Very High: >500 mg/dL Performed By: #### L 501.080 #### [facility] Laboratory [address] [place], [place], [address] Screening total cholesterol/ high density lipoprotein (HDL) cholesterol ratioOrdered By: Olamide Mas on 08-17-2025 Cholesterol.total/Choles terol in HDL [Mass ratio] 5.14 {ratio} [facility] Serum globulin measurementOr dered By: Olamide Mas on 08-17-2025 Globulin (S) [Mass/Vol] 3.2 g/dL 2.2-4.2 [facility] Serum or plasma alanine mccollum otransferase (ALT) measurementOrdered By: Olamide Mas on 08-17-2025 ALT [Catalytic activity/Vol] 20 U/L <35 [facility] Serum or plasma albumin yunior urement (mass/volume)Ordered By: Olamide Mas on 08-17-2025 Albumin [Mass/Vol] 3.5 g/dL 3.5-5.0 [facility] Serum or plasma albumin/glob ulin mass ratioOrdered By: Olamide Mas on 08-17-2025 Albumin/Globulin [Mass ratio] 1.1 {ratio} 0.9-2.4 [facility] Serum or plasma alkaline janis sphatase measurementOrdered By: Olamide Mas on 08-17-2025 ALP [Catalytic activity/Vol] 76 U/L 35-104 [facility] Serum or plasma cholesterol in HDL measurement (mass/volume)Ordered By: Olamide Mas on 08-17-2025 Cholesterol in HDL [Mass/Vol] 28 mg/dL Low >40 [facility] Comment on above: National Cholesterol Education Program (NCEP) guidelines:<40 mg/dL: Low HDL-cholesterol (major risk factor for CHD)>= 60 mg/dL: High HDL-cholesterol (negative risk factor for CHD)HDL-cholesterol is affected by a number of factors, e.g. smoking, exercise, hormones, sex and age. Serum or plasma cholesterol measurement (mass/volume)Ordered By: Olamide Mas on 08-17-2025 Cholesterol [Mass/Vol] 146 mg/dL <201 [facility] Comment on above: Cholesterol level, D esirable <200 mg/dLBorderline high cholesterol 200-239 mg/dLHigh cholesterol >=240 mg/dLRecommendations of the NCEP Adult Treatment Panel for the following risk-cutoff thresholds for the [place] population. TSH DL <= 0.005 mIU/L QnOrde red By: Olamide Mas on 08-17-2025 TSH Qn 6.510 uIU/mL High 0.300-4.200 [facility] Thyroid Stim Hormone (TSH)on 08-17-2025 TSH 6.510 uIU/mL High 0.300-4.200 [facility] Comment on above: Performed By: #### L 501.080 #### [facility] Laboratory [facility] [place], [address] Total proteinOrdered By: Alvaro Mas on 08-17-2025 Protein [Mass/Vol] 6.7 g/dL 5.9-8.4 [facility] Triglycerides measurementOrd ered By: Olamide Mas on 08-17-2025 Triglyceride [Mass/Vol] 218 mg/dL High <199 [facility] Comment on above: The drugs N-Acetylcy steine and Metamizole may falsely depress this assay. Normal range: <150 mg/dLBorderline High: 150-199 mg/dLHigh: 200-499 mg/dLVery High: >500 mg/dL Troponin T HS 2 HRon 025 Trop T High Sen 35 ng/L High <=14 [facility] Comment on above: Performed By: #### L 499.0042 #### [facility] Laboratory [address] [place], [place], [address] Troponin T HS 4 HRon 025 Trop T High Sen 35 ng/L High <=14 [facility] Comment on above: Performed By: #### L 499.0043 #### [facility] Laboratory [address] [place], [place], [address] Troponin T.cardiac [Mass/vol ume] in Serum or Plasma by High sensitivity methodOrdered By: Olamide Mas on 08-17-2025 Troponin T.cardiac High sensitivity method [Mass/Vol] 35 ng/L High <14 [facility] Troponin T.cardiac High sensitivity method [Mass/Vol] 35 ng/L High <14 [facility] Vancomycin, Trough Levelon 0 08-17-2025 VANCO, TROUGH 20.3 ug/mL High 5.0-15.0 [facility] Comment on above: Order Comment: 2100 Result [...] (Ventilator/Healtcare Associated) -Sepsis PLEASE CONTACT PHARMACY SERVICES (#[id number]) FOR INTERPRETATION OF RESULTS. Performed By: #### L 499.0043 #### [facility] Laboratory [address] [place], [place], [address] 12 Lead EKGon 08-16-2025 12 Lead EKG [facility] Cardiovascular Services [address] [place] [address] 12 Lead EKG 08/16/25 1905 MR#: [id number] Acct: [id number] Name: MACARIO WALLACE Rep #: [id number] : 1975 50 From: Audi Gamino MD Attending Dr: Dr. Jersey Pradhan MD Status: ADM IN Ordering Dr: Jozef Kaiser MD Date: 08/16/25 Location: [facility] Sex: F C Admitted: 08/16/25 Test Reason : DYSRHYTHMIA Blood Pressure : */* mmHG Vent. Rate : 93 BPM Atrial Rate : 93 BPM P-R Int : 140 ms QRS Dur : 86 ms QT Int : 368 ms P-R-T Axes : 14 -2 65 degrees QTcB Int : 457 ms Normal sinus rhythm Normal ECG Confirmed by HASMUKH LORA, AUDI ([id number]), sports editor RANDI BROWNLEE ([id number]) on 08/17/2025 9:41:15 AM Referred By: Confirmed By: AUDI GAMINO MD 08/17/25 0941 Date Audi Gamino MD CC: Dr. Delmy Solorzano MD; Dr. Jersey Pradhan MD; Dr. Jozef Kaiser MD Signed Normal [facility] Absolute lymphocyte countOrd ered By: Jozef Kaiser on 08-16-2025 Lymphocytes Auto (Unsp spec) [#/Vol] 1.92 10*3/uL 0.83-4.51 [facility] Absolute neutrophil countOrd ered By: Jozef Kaiser on 08-16-2025 Neutrophils (Bld) [#/Vol] 6.8 10*3/uL 2.0-7.7 [facility] Activated partial thrombopla stin time (aPTT) in platelet poor plasma by coagulation aOrdered By: Jozef Kaiser on 08-16-2025 aPTT Coag (PPP) [Time] 29.8 s 24.1-36.2 [facility] Anion gap in Serum or Plasma Ordered By: Jozef Kaiser on 08-16-2025 Anion gap [Moles/Vol] 14 mmol/L 5-15 [facility] Automated lymphocyte count a s percentage of total leukocytesOrdered By: Jozefpedro Maloneo on 08-16-2025 Lymphocytes/100 WBC Auto (Unsp spec) 20.4 % 19-41 [facility] BUN/creatinine ratioOrdered By: Jozef Kaiser on 08-16-2025 Urea nitrogen/Creatinine [Mass ratio] 29.7 mg/mg High 10-20 [facility] Basophil percentageOrdered B y: Jozefpedro Maloneo on 08-16-2025 Basophils/100 WBC (Bld) 0.7 % 0-1 [facility] Bilirubin, totalOrdered By: Jozef Kaiser on 08-16-2025 Bilirubin [Mass/Vol] 0.23 mg/dL 0.00-1.30 [facility] Blood cultureOrdered By: Jozefpedro Kaiser on 08-16-2025 Bacteria identified Cx Nom (Bld) No growth in 5 days. [facility] Bacteria identified Cx Nom (Bld) No growth in 5 days. [facility] CBC W/Diff, Automatedon 08-01 Absolute Lymph 1.92 X10 3/uL Normal 0.83-4.51 [facility] Comment on above: Performed By: #### L 499.0042 #### [facility] Laboratory [address] [place], [address] Absolute Neut 6.8 X10 3/uL Normal 2.0-7.7 [facility] Comment on above: Performed By: #### L 499.0042 #### [facility] Laboratory [address] [place], [address] Basophils/100 WBC (Bld) 0.7 % Normal 0-1 [facility] Comment on above: Performed By: #### L 499.0042 #### [facility] Laboratory [address] [place], [address] Eosinophils/100 WBC (Bld) 2.0 % Normal 0-5 [facility] Comment on above: Performed By: #### L 499.0042 #### [facility] Laboratory [address] [place], [address] Erythrocyte distribution width (RBC) [Ratio] 13.7 % Normal 11.6-14.6 [facility] Comment on above: Performed By: #### L 499.0042 #### [facility] Laboratory [address] [place], [address] Hematocrit (Bld) [Volume fraction] 29.6 % Low 37-47 [facility] Comment on above: Performed By: #### L 499.0042 #### [facility] Laboratory [address] [place], [address] Hemoglobin (Bld) [Mass/Vol] 9.2 g/dL Low 12.0-15.0 [facility] Comment on above: Performed By: #### L 499.0042 #### [facility] Laboratory [address] [place], [address] IG% 0.600 Normal 0.0-0.9 [facility] Comment on above: Result Comment: IG% - Immature Granulocytes (promyelocytes, myelocytes and metamyelocytes) > 1% indicates that a LEFT SHIFT is Present. Performed By: #### L 499.0042 #### [facility] Laboratory [address] [place], [address] Lymphocytes/100 WBC (Bld) 20.4 % Normal 19-41 [facility] Comment on above: Performed By: #### L 499.0042 #### [facility] Laboratory [address] [place], [address] MCH (RBC) [Entitic mass] 28.2 pg Normal 27.0-32.0 [facility] Comment on above: Performed By: #### L 499.0042 #### [facility] Laboratory [address] [place], [address] MCHC (RBC) [Mass/Vol] 31.1 g/dL Low 32-36 [facility] Comment on above: Performed By: #### L 499.0042 #### [facility] Laboratory [address] [place], [address] MCV (RBC) [Entitic vol] 90.8 fL Normal 81-99 [facility] Comment on above: Performed By: #### L 499.0042 #### [facility] Laboratory [address] [place], [address] Monocytes/100 WBC (Bld) 4.1 % Normal 0-10 [facility] Comment on above: Performed By: #### L 499.0042 #### [facility] [facility] [address] [place], [address] Neutrophils/100 WBC (Bld) 72.2 % High 47-70 [facility] Comment on above: Performed By: #### L 499.0042 #### [facility] [address] [place], [address] Nucleated RBC (Bld) [#/Vol] 0 10*3/uL Normal 0-5 [facility] Comment on above: Performed By: #### L 499.0042 #### [facility] [address] [place], [address] Platelet mean volume (Bld) [Entitic vol] 10.5 fL Normal 6.2-12.0 [facility] Comment on above: Performed By: #### L 499.0042 #### [facility] [address] [place], [address] Platelets (Bld) [#/Vol] 254 10*3/uL Normal 150-450 [facility] Comment on above: Performed By: #### L 499.0042 #### [facility] [address] [place], [address] RBC (Bld) [#/Vol] 3.26 10*6/uL Low 4.2-5.4 [facility] Comment on above: Performed By: #### L 499.0042 #### [facility] [address] [place], [address] RDW SD 45.8 fl High 35.1-43.9 [facility] Comment on above: Performed By: #### L 499.0042 #### [facility] [address] [place], [address] WBC (Bld) [#/Vol] 9.4 10*3/uL Normal 4.4-11.0 [facility] Comment on above: Performed By: #### L 499.0042 #### [facility] [address] [place], [place], [id number] (810 Carbon dioxide, total [Moles /volume] in Central venous bloodOrdered By: Jozef Kaiser on 08-16-2025 CO2 [Moles/Vol] 30.0 mmol/L 21.0-32.0 [facility] Chest PA and Lateralon 08-16 Chest PA and Lateral [facility] Services [address] [place], [place] [address] (421 Chest PA and Lateral MR#: [id number] Acct: [id number] Name: MACARIO WALLACE Rep #: [id number] : 1975 F 50 From: Paulino Morrissey MD PCP: Dr. Delmy Solorzano MD Status: [facility] ER Study: Chest PA and Lateral Date of Exam: 08/16/25 Exam# [id number] Ordering Dr: Jozef Kaiser MD PROCEDURE: CHEST [...] airspace consolidation or pleural effusions. Reading Location: [facility] CC: Dr. Delmy Solorzano MD; Dr. Jozef Kaiser MD 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: Signed Normal [facility] Chloride assayOrdered By: Savanna Kaiser on 08-16-2025 Chloride [Moles/Vol] 90 mmol/L Low 98-108 [facility] Comprehensive Metabolic Prof ilon 08-16-2025 Albumin [Mass/Vol] 3.5 g/dL Normal 3.5-5.0 [facility] Comment on above: Performed By: #### L 499.0042 #### [facility] [address] [place], [address] Albumin/Globulin [Mass ratio] 1.1 {ratio} Normal 0.9-2.4 [facility] Comment on above: Performed By: #### L 499.0042 #### [facility] [address] [place], [address] ALK PHOS 81 U/L Normal 35-104 [facility] Comment on above: Performed By: #### L 499.0042 #### [facility] [address] [place], [address] ALT [Catalytic activity/Vol] 23 U/L Normal <=34 [facility] Comment on above: Performed By: #### L 499.0042 #### [facility] [address] [place], [address] AST [Catalytic activity/Vol] 24 U/L Normal <=31 [facility] Comment on above: Performed By: #### L 499.0042 #### [facility] [address] [place], [address] Bilirubin [Mass/Vol] 0.23 mg/dL Normal 0.00-1.30 [facility] Comment on above: Performed By: #### L 499.0042 #### [facility] [address] [place], [address] BUN/CRE 29.7 RATIO High 10-20 [facility] Comment on above: Performed By: #### L 499.0042 #### [facility] [address] [place], [address] Calcium [Mass/Vol] 8.2 mg/dL Normal 7.6-11.0 [facility] Comment on above: Performed By: #### L 499.0042 #### [facility] [address] [place], [address] Chloride [Moles/Vol] 90 mmol/L Low 98-108 [facility] Comment on above: Performed By: #### L 499.0042 #### [facility] [address] [place], [address] CO2 [Moles/Vol] 30.0 mmol/L Normal 21.0-32.0 [facility] Comment on above: Performed By: #### L 499.0042 #### [facility] [address] [place], [address] Creatinine [Mass/Vol] 1.07 mg/dL Normal 0.70-1.20 [facility] Comment on above: Performed By: #### L 499.0042 #### [facility] [address] [place], [address] ECRCL 110.03 ml/min Normal 50-250 [facility] Comment on above: Performed By: #### L 499.0042 #### [facility] [address] [place], [address] GAP 14 Normal 5-15 [facility] Comment on above: Performed By: #### L 499.0042 #### [facility] [address] [place], [address] GFR/1.73 sq M.predicted among non-blacks MDRD (S/P/Bld) [Vol rate/Area] 64 mL/min/{1.73_m2} Normal >60 [facility] Comment on above: Result Comment: mL/m in/1.73m2 CKD-EPI Creatinine Equation (2020) Performed By: #### L 499.0042 #### [facility] [address] [place], [address] Globulin (S) [Mass/Vol] 3.2 g/dL Normal 2.2-4.2 [facility] Comment on above: Performed By: #### L 499.0042 #### [facility] [address] [place], [address] Glucose [Mass/Vol] 525 mg/dL Invalid Interpretation Code 70-99 [facility] Comment on above: Result Comment: Crit ical Result(s) Called at: 08-16-25 20:26 TO CRISTINA RAWLS by:??NADIA PICKETT Results read back by same. Performed By: #### L 499.0042 #### [facility] [address] [place], [address] Potassium [Moles/Vol] 3.8 mmol/L Normal 3.3-5.1 [facility] Comment on above: Performed By: #### L 499.0042 #### [facility] [address] [place], [address] Sodium [Moles/Vol] 134 mmol/L Normal 133-145 [facility] Comment on above: Performed By: #### L 499.0042 #### [facility] [address] [place], [address] T PROT 6.7 g/dL Normal 5.9-8.4 [facility] Comment on above: Performed By: #### L 499.0042 #### [facility] [address] [place], [address] Urea nitrogen [Mass/Vol] 32 mg/dL High 4-19 [facility] Comment on above: Performed By: #### L 499.0042 #### [facility] [address] [place], [address] Emergency Department Summary on 08-16-[address] [facility] Medical Records Department [address] [place] [address] Emergency Department Summary 08/16/25 MR#: [id number] Acct: [id number] Name: MACARIO WALLACE Rep #: [id number] : 1975 50 From: Jozef Kaiser MD [...] 1 mg (more content not included)... Normal [facility] Eosinophil percentageOrdered By: Jozef Kaiser on 08-16-2025 Eosinophils/100 WBC (Bld) 2.0 % 0-5 [facility] Erythrocyte distribution wid th ratioOrdered By: Jozef Kaiser on 08-16-2025 Erythrocyte distribution width (RBC) [Ratio] 13.7 % 11.6-14.6 [facility] Erythrocyte distribution wid th standard deviationOrdered By: Jozef Kaiser on 08-16-2025 Erythrocyte distribution width (RBC) [Ratio] 45.8 fl High 35.1-43.9 [facility] Glomerular filtration rate ( GFR) estimation/1.73 sq m using serum, plasma, or whole bOrdered By: Jozef Kaiser on 08-16-2025 GFR/1.73 sq M.predicted among non-blacks MDRD (S/P/Bld) [Vol rate/Area] 64 mL/min/{1.73_m2} >60 [facility] Comment on above: mL/min/1.73m2 CKD-EP I Creatinine Equation (2020) Gram stainOrdered By: Jozef morrow on 08-16-2025 Microscopic observation Gram stain Nom (Unsp spec) [facility] H AND P Exam - Hospitaliston 08-16-2025 H&P Exam - Hospitalist [facility] Medical Records Department [address] [place] [address] H P Exam - Hospitalist 08/16/252105 MR#: [id number] Acct: [id number] Name: MACARIO WALLACE Rep #: [id number] : 1975 50 From: Olamide Mas MD PCP: Dr. 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 [facility] Medical History (Updated 08/16/25 @ 21:32 by [...] 09/22/22 0 (more content not included)... Normal [facility] Hematocrit Auto (Bld) [Volum e fraction]Ordered By: Jozef Kaiser on 08-16-2025 Hematocrit (Bld) [Volume fraction] 29.6 % Low 37-47 [facility] Hemoglobin measurementOrdere d By: Jozefpedro Kaiser on 08-16-2025 Hemoglobin (Bld) [Mass/Vol] 9.2 g/dL Low 12.0-15.0 [facility] Immature granulocytes/100 WB C Auto (Bld)Ordered By: Jozefpedro Kaiser on 08-16-2025 Immature granulocytes/100 WBC (Bld) 0.600 % 0.0-0.9 [facility] Comment on above: IG% - Immature Granu locytes (promyelocytes, myelocytes and metamyelocytes) > 1% indicates that a LEFT SHIFT is Present. International normalized rat io (INR) calculationOrdered By: Jozefpedro Kaiser on 08-16-2025 INR Coag (Bld) [Relative time] 1.1 {INR} [facility] L501.4021on 08-16-2025 Trop T High Sen 37 ng/L High <=14 [facility] Comment on above: Performed By: #### L 499.0042 #### [facility] [address] [place], [address] Laboratory - Chemistry and C hemistry - challengeOrdered By: Jozefpedro Kaiser on 08-16-2025 AST [Catalytic activity/Vol] 24 U/L <32 [facility] Lactic Acidon 08-16-2025 Lactate [Moles/Vol] 1.9 mmol/L Normal 0.0-2.0 [facility] Comment on above: Order Comment: Y Performed By: #### L 499.0042 #### [facility] [address] [place], [place], [address] Lactic acid measurementOrder ed By: Jozef Kaiser on 08-16-2025 Lactate [Moles/Vol] 1.9 mmol/L 0.0-2.0 [facility] M8200.1075on 08-16-2025 M8200.1075 Normal Reference Range = Negative MRSA/SAUR WOUND PCR GeneXpert Instrument, PCR method MRSA/SAUR WOUND PCR Copy of report sent to Infection Control Printer [id number] 08/16/25 2319 HAKEEM. RESULTS CALLED TO YO MONTEIRO 08/16/25 2317 Yvrose Martinez. REPORT READ BACK BY SAME. MRSA PCR MRSA POSITIVE A STAPH. AUREUS PCR STAPH AUREUS POSITIVEA STAPH. AUREUS PCR STAPH AUREUS POSITIVEA mecA Testing not performed Normal [facility] Comment on above: Performed By: #### L 501.080 #### [facility] [address] [place], [address] MCV (mean corpuscular volume ) determinationOrdered By: Jozefpedro Kaiser on 08-16-2025 MCV (RBC) [Entitic vol] 90.8 fL 81-99 [facility] Magnesiumon 08-16-2025 Magnesium [Mass/Vol] 1.4 mg/dL Low 1.5-2.2 [facility] Comment on above: Order Comment: Comme nts: may add to ED labs Performed By: #### L 501.080 #### [facility] [address] [place], [address] Mean corpuscular hemoglobin (MCH) determinationOrdered By: Jozef Kaiser on 08-16-2025 MCH (RBC) [Entitic mass] 28.2 pg 27.0-32.0 [facility] Mean corpuscular hemoglobin concentration (MCHC) determinationOrdered By: Jozef Kaiser on 08-16-2025 MCHC (RBC) [Mass/Vol] 31.1 g/dL Low 32-36 [facility] Mean platelet volume determi nationOrdered By: Jozef Kaiser on 08-16-2025 Platelet mean volume (Bld) [Entitic vol] 10.5 fL 6.2-12.0 [facility] Methicillin resistant Staphy lococcus aureus detection by polymerase chain reactionOrdered By: Olamide Mas on 08-16-2025 Bacterial nucleic acid assay Meth. resistant Staph. aureus Abnormal [facility] Monocyte percentageOrdered B y: Jozef Kaiser on 08-16-2025 Monocytes/100 WBC (Bld) 4.1 % 0-10 [facility] Natriuretic peptide.B prohor britany N-Terminal [Mass/volume] in Serum or PlasmaOrdered By: Jozef Kaiser on 08-16-2025 Natriuretic peptide.B prohormone N-Terminal [Mass/Vol] 163 pg/mL <450 [facility] Comment on above: Heart Failure Unlike ly: < 300 pg/mLHeart Failure Likely< 50 Years: > 450 pg/mL50-75 Years: > 900 pg/mL>75 Years: > 1800 pg/mL Neutrophil percentageOrdered By: Jozef Kaiser on 08-16-2025 Neutrophils/100 WBC (Bld) 72.2 % High 47-70 [facility] Nucleated red blood cell per centageOrdered By: Jozefpedro Kaiser on 08-16-2025 Nucleated RBC/100 WBC (Bld) [Ratio] 0 % 0-5 [facility] Partial Thromboplast Timeon 08-16-2025 aPTT Coag (Bld) [Time] 29.8 s Normal 24.1-36.2 [facility] Comment on above: Performed By: #### L 499.0042 #### [facility] [address] [place], [place], [id number] Platelet countOrdered By: Savanna Kaiser on 08-16-2025 Platelets (Bld) [#/Vol] 254 10*3/uL 150-450 [facility] Potassium measurement (mass/ volume)Ordered By: Jozef Kaiser on 08-16-2025 Potassium (Unsp spec) [Mass/Vol] 3.8 mmol/L 3.3-5.1 [facility] Pro- Brain NATRIURETIC PEPTI Robb 08-16-2025 Natriuretic peptide B (Bld) [Mass/Vol] 163 pg/mL Normal <=450 [facility] Comment on above: Result Comment: Hear t Failure Unlikely: < 300 pg/mL Heart Failure Likely < 50 Years: > 450 pg/mL 50-75 Years: > 900 pg/mL >75 Years: > 1800 pg/mL Performed By: #### L 499.0042 #### [facility] [address] [place], [place], [address] Procalcitonin [Mass/volume] in Serum or Plasma by ImmunoassayOrdered By: Olamide Mas on 08-16-2025 Procalcitonin IA [Mass/Vol] 0.13 ng/mL High <0.11 [facility] Comment on above: Interpretation:<0.10 -0.25 ng/mL: Antibiotic [...] Coag (PPP) [Relative time] 1.1 {INR} Normal [facility] Comment on above: Performed By: #### L 499.0042 #### [facility] [address] [place], [place], [address] PT Coag (PPP) [Time] 14.3 s Normal 11.7-14.9 [facility] Comment on above: Performed By: #### L 499.0042 #### [facility] [address] [place], [place], [address] Prothrombin timeOrdered By: Jozef Kaiser on 08-16-2025 PT Coag (PPP) [Time] 14.3 s 11.7-14.9 [facility] RBC Auto (Bld) [#/Vol]Ordere d By: Jozef Kaiser on 08-16-2025 RBC (Bld) [#/Vol] 3.26 10*6/uL Low 4.2-5.4 [facility] Routine wound cultureOrdered By: Jozef Kaiser on 08-16-2025 Microbial culture, routine Meth. resistant Staph. aureus Abnormal [facility] Microbial culture, routine Streptococcus thoraltensis Abnormal [facility] Microbial culture, routine Streptococcus mitis/ oralis Abnormal [facility] Serum creatinine measurement (mass/volume)Ordered By: Jozef Kaiser on 08-16-2025 Creatinine [Mass/Vol] 1.07 mg/dL 0.70-1.20 [facility] Serum globulin measurementOr dered By: Jozef Kaiser on 08-16-2025 Globulin (S) [Mass/Vol] 3.2 g/dL 2.2-4.2 [facility] Serum glucose measurement (m ass/volume)Ordered By: Jozef Kaiser on 08-16-2025 Glucose [Mass/Vol] 525 mg/dL High 70-99 [facility] Comment on above: Critical Result(s) C alled at: 08-16-25 20:26 TO CRISTINA RAWLS by: NADIA PICKETT Results read back by same. Serum or plasma alanine mccollum otransferase (ALT) measurementOrdered By: Jozef Kaiser on 08-16-2025 ALT [Catalytic activity/Vol] 23 U/L <35 [facility] Serum or plasma albumin yunior urement (mass/volume)Ordered By: Jozef Kaiser on 08-16-2025 Albumin [Mass/Vol] 3.5 g/dL 3.5-5.0 [facility] Serum or plasma albumin/glob ulin mass ratioOrdered By: Jozefpedro Kaiser on 08-16-2025 Albumin/Globulin [Mass ratio] 1.1 {ratio} 0.9-2.4 [facility] Serum or plasma alkaline janis sphatase measurementOrdered By: Jozefpedro Kaiser on 08-16-2025 ALP [Catalytic activity/Vol] 81 U/L 35-104 [facility] Serum or plasma calcium yunior urement (mass/volume)Ordered By: Jozef Kaiser on 08-16-2025 Calcium [Mass/Vol] 8.2 mg/dL 7.6-11.0 [facility] Serum or plasma urea nitroge n measurement (mass/volume)Ordered By: Jozef Kaiser on 08-16-2025 Urea nitrogen [Mass/Vol] 32 mg/dL High 4-19 [facility] Sodium levelOrdered By: Jozef Kaiser on 08-16-2025 Sodium [Moles/Vol] 134 mmol/L 133-145 [facility] Total proteinOrdered By: Jozef Kaiser on 08-16-2025 Protein [Mass/Vol] 6.7 g/dL 5.9-8.4 [facility] Troponin T HS 2 HRon 025 Trop T High Sen Normal <=14 [facility] Comment on above: Result Comment: Artis staton via OM: Ordered Performed By: #### L 501.080 #### [facility] [address] [place], [place], [address] Troponin T HS 4 HRon 025 Trop T High Sen Normal <=14 [facility] Comment on above: Result Comment: Artis staton via OM: MD Ordered Performed By: #### L 501.080 #### [facility] [address] [place], [place], [address] Troponin T.cardiac [Mass/vol ume] in Serum or Plasma by High sensitivity methodOrdered By: Olamide Mas on 08-16-2025 Troponin T.cardiac High sensitivity method [Mass/Vol] 37 ng/L High <14 [facility] Troponin T.cardiac [Mass/vol ume] in Serum or Plasma by High sensitivity methodOrdered By: Jozef Kaiser on 08-16-2025 Troponin T.cardiac High sensitivity method [Mass/Vol] 37 ng/L High <14 [facility] White blood cell (WBC) count Ordered By: Jozef Kaiser on 08-16-2025 WBC (Bld) [#/Vol] 9.4 10*3/uL 4.4-11.0 [facility] ALBUMIN/CREATININE RATIO, UR INEon 06-09-2025 Albumin DL <= 20 mg/L (U) [Mass/Vol] mg/dL Normal [facility] Comment on above: Order Comment: Speci men Type: URINE SPECIMEN Ordering Facility: External Submitter Address: , , Performed By: #### U ACR #### [facility] CLIA [id number] [address] [place] [address] [place] Albumin/Creatinine (U) [Mass ratio] <18 Normal <30 [facility] Comment on above: Order Comment: Speci dahiana Type: URINE SPECIMEN Ordering Facility: External Submitter [...] 1-150. Performed By: #### U ACR #### [facility] CLIA [id number] [address] [place] [address] [place] Creatinine (U) [Mass/Vol] 66.4 mg/dL Normal 20.0-300.0 [facility] Comment on above: Order Comment: Speci men Type: URINE SPECIMEN Ordering Facility: External Submitter Address: , , Performed By: #### U ACR #### [facility] CLIA [id number] [address] [place] [address] [place] CBC W Auto Differential pane l (Bld)on 06-09-2025 Basophils (Bld) [#/Vol] 0.06 10*3/uL Normal <0.11 [facility] Comment on above: Order Comment: Speci men Type: BLOOD SPECIMEN Ordering Facility: External Submitter Address: , , Performed By: #### 5 7021-8 #### [facility] CLIA [id number] [address] [place] [address] [place] Basophils/100 WBC (Bld) 0.7 % Normal [facility] Comment on above: Order Comment: Roberto talbot Type: BLOOD SPECIMEN Ordering Facility: External Submitter Address: , , Performed By: #### 5 7021-8 #### [facility] CLIA [id number] [place] [address] [place] Differential cell count method Nom (Bld) Auto Normal [facility] Comment on above: Order Comment: Speci men Type: BLOOD SPECIMEN Ordering Facility: External Submitter Address: , , Performed By: #### 5 7021-8 #### [facility] CLIA [id number] [facility] [address], [facility]95 [place] Eosinophils (Bld) [#/Vol] 0.23 10*3/uL Normal <0.46 [facility] Comment on above: Order Comment: Speci men Type: BLOOD SPECIMEN Ordering Facility: External Submitter Address: , , Performed By: #### 5 7021-8 #### [facility] CLIA [id number] [address] [place] [address], [facility]95 [place] Eosinophils/100 WBC (Bld) 2.9 % Normal [facility] Comment on above: Order Comment: Speci men Type: BLOOD SPECIMEN Ordering Facility: External Submitter Address: , , Performed By: #### 5 7021-8 #### [facility] CLIA [id number] [address] [place], [place] [address] [place] Erythrocyte distribution width (RBC) [Ratio] 13.4 % Normal 11.5-15.0 [facility] Comment on above: Order Comment: Speci men Type: BLOOD SPECIMEN Ordering Facility: External Submitter Address: , , Performed By: #### 5 7021-8 #### [facility] CLIA [id number] [address] [place] [address], [place] [address] [place] Hematocrit (Bld) [Volume fraction] 34.8 % Low 36.0-46.0 [facility] Comment on above: Order Comment: Speci men Type: BLOOD SPECIMEN Ordering Facility: External Submitter Address: , , Performed By: #### 5 7021-8 #### [facility] CLIA [id number] [address] [place] [address], [place] [address] [place] Hemoglobin (Bld) [Mass/Vol] 10.6 g/dL Low 11.5-15.5 [facility] Comment on above: Order Comment: Speci men Type: BLOOD SPECIMEN Ordering Facility: External Submitter Address: , , Performed By: #### 5 7021-8 #### [facility] CLIA [id number] [facility] [address] [address] [place] Immature granulocytes (Bld) [#/Vol] 0.05 10*3/uL Normal <0.10 [facility] Comment on above: Order Comment: Speci men Type: BLOOD SPECIMEN Ordering Facility: External Submitter Address: , , Performed By: #### 5 7021-8 #### [facility] CLIA [id number] [address] [place], [place] [address] [place] Immature granulocytes/100 WBC (Bld) 0.6 % Normal [facility] Comment on above: Order Comment: Speci men Type: BLOOD SPECIMEN Ordering Facility: External Submitter Address: , , Performed By: #### 5 7021-8 #### [facility] CLIA [id number] [address] [place] [address] [place] Lymphocytes (Bld) [#/Vol] 1.76 10*3/uL Normal 1.00-4.00 [facility] Comment on above: Order Comment: Speci men Type: BLOOD SPECIMEN Ordering Facility: External Submitter Address: , , Performed By: #### 5 7021-8 #### [facility] CLIA [id number] [address] [address] [place] Lymphocytes/100 WBC (Bld) 21.8 % Normal [facility] Comment on above: Order Comment: Speci men Type: BLOOD SPECIMEN Ordering Facility: External Submitter Address: , , Performed By: #### 5 7021-8 #### [facility] CLIA [id number] [facility] [place] [address] [place] MCH (RBC) [Entitic mass] 28.2 pg Normal 26.0-34.0 [facility] Comment on above: Order Comment: Speci men Type: BLOOD SPECIMEN Ordering Facility: External Submitter Address: , , Performed By: #### 5 7021-8 #### [facility] CLIA [id number] [address] [place] [address] [place] MCHC (RBC) [Mass/Vol] 30.5 g/dL Normal 30.5-36.0 [facility] Comment on above: Order Comment: Speci men Type: BLOOD SPECIMEN Ordering Facility: External Submitter Address: , , Performed By: #### 5 7021-8 #### [facility] CLIA [id number] [address] [place] [address] [place] MCV (RBC) [Entitic vol] 92.6 fL Normal 80.0-100.0 [facility] Comment on above: Order Comment: Speci men Type: BLOOD SPECIMEN Ordering Facility: External Submitter Address: , , Performed By: #### 5 7021-8 #### [facility] CLIA [id number] [address] [place] [address] [place] Monocytes (Bld) [#/Vol] 0.33 10*3/uL Normal <0.87 [facility] Comment on above: Order Comment: Speci men Type: BLOOD SPECIMEN Ordering Facility: External Submitter Address: , , Performed By: #### 5 7021-8 #### [facility] CLIA [id number] [address] [place], [place] [address] [place] Monocytes/100 WBC (Bld) 4.1 % Normal [facility] Comment on above: Order Comment: Speci men Type: BLOOD SPECIMEN Ordering Facility: External Submitter Address: , , Performed By: #### 5 7021-8 #### [facility] CLIA [id number] [address] [place], [place] [address] [place] Neutrophils (Bld) [#/Vol] 5.63 10*3/uL Normal 1.45-7.50 [facility] Comment on above: Order Comment: Speci men Type: BLOOD SPECIMEN Ordering Facility: External Submitter Address: , , Performed By: #### 5 7021-8 #### [facility] CLIA [id number] [address] [place] [address] [place] Neutrophils/100 WBC (Bld) 69.9 % Normal [facility] Comment on above: Order Comment: Speci men Type: BLOOD SPECIMEN Ordering Facility: External Submitter Address: , , Performed By: #### 5 7021-8 #### [facility] CLIA [id number] [address] [place] [address] [place] Nucleated RBC (Bld) [#/Vol] 10*3/uL Normal <0.01 [facility] Comment on above: Order Comment: Speci men Type: BLOOD SPECIMEN Ordering Facility: External Submitter Address: , , Performed By: #### 5 7021-8 #### [facility] CLIA [id number] [address] [place] [address] [place] Nucleated RBC/100 WBC (Bld) [Ratio] 0.0 /100 WBC Normal [facility] Comment on above: Order Comment: Speci men Type: BLOOD SPECIMEN Ordering Facility: External Submitter Address: , , Performed By: #### 5 7021-8 #### [facility] CLIA [id number] [address] [place] [address] [place] Platelet mean volume (Bld) [Entitic vol] 11.4 fL Normal 9.0-12.7 [facility] Comment on above: Order Comment: Speci men Type: BLOOD SPECIMEN Ordering Facility: External Submitter Address: , , Performed By: #### 5 7021-8 #### [facility] CLIA [id number] [address] [place] [address] [place] Platelets (Bld) [#/Vol] 266 10*3/uL Normal 150-400 [facility] Comment on above: Order Comment: Speci men Type: BLOOD SPECIMEN Ordering Facility: External Submitter Address: , , Performed By: #### 5 7021-8 #### [facility] CLIA [id number] [address] [place] [address] [place] RBC (Bld) [#/Vol] 3.76 10*6/uL Low 3.90-5.20 [facility] Comment on above: Order Comment: Speci men Type: BLOOD SPECIMEN Ordering Facility: External Submitter Address: , , Performed By: #### 5 7021-8 #### [facility] CLIA [id number] [address] [place] [address] [place] WBC (Bld) [#/Vol] 8.06 10*3/uL Normal 3.70-11.00 [facility] Comment on above: Order Comment: Speci men Type: BLOOD SPECIMEN Ordering Facility: External Submitter Address: , , Performed By: #### 5 7021-8 #### [facility] CLIA [id number] [address] [place] [address] [place] Comprehensive metabolic 2000 panelon 06-09-2025 Albumin [Mass/Vol] 3.7 g/dL Low 3.9-4.9 [facility] Comment on above: Order Comment: Speci men Type: BLOOD SPECIMEN Ordering Facility: External Submitter Address: , , Performed By: #### 3 024-7, 38124-9, TSHRF #### [facility] CLIA [id number] [address] [place], [place] [address] [facility] [place] ALP [Catalytic activity/Vol] 72 U/L Normal 34-123 [facility] Comment on above: Order Comment: Speci men Type: BLOOD SPECIMEN Ordering Facility: External Submitter Address: , , Performed By: #### 3 024-7, 21477-1, TSHRF #### [facility] CLIA [id number] [address] [address] [place] ALT [Catalytic activity/Vol] 23 U/L Normal 7-38 [facility] Comment on above: Order Comment: Speci men Type: BLOOD SPECIMEN Ordering Facility: External Submitter Address: , , Performed By: #### 3 024-7, , TSHRF #### [facility] CLIA [id number] [facility] [place] [address] [place] Anion gap [Moles/Vol] 10 mmol/L Normal 8-15 [facility] Comment on above: Order Comment: Speci men Type: BLOOD SPECIMEN Ordering Facility: External Submitter Address: , , Performed By: #### 3 024-7, , TSHRF #### [facility] CLIA [id number] [address] [place] [address] [place] AST [Catalytic activity/Vol] 28 U/L Normal 13-35 [facility] Comment on above: Order Comment: Speci men Type: BLOOD SPECIMEN Ordering Facility: External Submitter Address: , , Performed By: #### 3 024-7, , TSHRF #### [facility] CLIA [id number] [address] [place], [place] [address] [place] Bilirubin [Mass/Vol] 0.2 mg/dL Normal 0.2-1.3 [facility] Comment on above: Order Comment: Speci men Type: BLOOD SPECIMEN Ordering Facility: External Submitter Address: , , Performed By: #### 3 024-7, , TSHRF #### [facility] CLIA [id number] [address] [place], [place] [address] [place] Calcium [Mass/Vol] 9.1 mg/dL Normal 8.5-10.2 [facility] Comment on above: Order Comment: Speci men Type: BLOOD SPECIMEN Ordering Facility: External Submitter Address: , , Performed By: #### 3 024-7, , TSHRF #### [facility] CLIA [id number] [address] [address] [place] Chloride [Moles/Vol] 93 mmol/L Low 98-107 [facility] Comment on above: Order Comment: Roberto talbot Type: BLOOD SPECIMEN Ordering Facility: External Submitter Address: , , Performed By: #### 3 024-7, , TSHRF #### [facility] CLIA [id number] [address] [place] [address] [place] CO2 [Moles/Vol] 32 mmol/L High 22-30 [facility] Comment on above: Order Comment: Roberto talbot Type: BLOOD SPECIMEN Ordering Facility: External Submitter Address: , , Performed By: #### 3 024-7, , TSHRF #### [facility] CLIA [id number] [address] [place] [address] [place] Creatinine [Mass/Vol] 1.04 mg/dL High 0.58-0.96 [facility] Comment on above: Order Comment: Roberto talbot Type: BLOOD SPECIMEN Ordering Facility: External Submitter Address: , , Performed By: #### 3 024-7, , TSHRF #### [facility] CLIA [id number] [address] [place] [address] [facility] Creatinine and Glomerular filtration rate.predicted panel (S/P/Bld) 67 mL/min/1.73m??? Normal >=60 [facility] Comment on above: Order Comment: Roberto [...] actual GFR. Performed By: #### 3 024-7, , TSHRF #### [facility] CLIA [id number] [address] [address] [place] Glucose [Mass/Vol] 323 mg/dL High 74-99 [facility] Comment on above: Order Comment: Roberto [...] 2016.39(Suppl 1). Performed By: #### 3 024-7, , TSHRF #### [facility] CLIA [id number] [address] [place] [address] [place] Potassium [Moles/Vol] 4.7 mmol/L Normal 3.7-5.1 [facility] Comment on above: Order Comment: Roberto talbot Type: BLOOD SPECIMEN Ordering Facility: External Submitter Address: , , Performed By: #### 3 024-7, , TSHRF #### [facility] CLIA [id number] [address] [address] [place] Protein [Mass/Vol] 7.1 g/dL Normal 6.3-8.0 [facility] Comment on above: Order Comment: Roberto talbot Type: BLOOD SPECIMEN Ordering Facility: External Submitter Address: , , Performed By: #### 3 024-7, , TSHRF #### [facility] CLIA [id number] [address] [place] [address] [place] Sodium [Moles/Vol] 135 mmol/L Low 136-144 [facility] Comment on above: Order Comment: Roberto talbot Type: BLOOD SPECIMEN Ordering Facility: External Submitter Address: , , Performed By: #### 3 024-7, 02224-6, TSHRF #### [facility] CLIA [id number] [address] [place] [address] [place] Urea nitrogen [Mass/Vol] 24 mg/dL High 7-21 [facility] Comment on above: Order Comment: Roberto talbot Type: BLOOD SPECIMEN Ordering Facility: External Submitter Address: , , Performed By: #### 3 024-7, , TSHRF #### [facility] CLIA [id number] [address] [place] [address] [place] HbA1c (Bld)on 06-09-2025 Average glucose Estimated from glycated hemoglobin (Bld) [Mass/Vol] 266 mg/dL Normal [facility] Comment on above: Order Comment: Roberto talbot Type: BLOOD SPECIMEN Ordering Facility: External Submitter Address: , , Result Comment: eAG: (Estimated average glucose) is a calculated value from HgbA1c and is medical representative of the average blood glucose level in the last 2-3 month period. Performed By: #### 5 5454-3 #### [facility] CLIA [id number] [address] [place] [address] [place] HbA1c (Bld) [Mass fraction] 10.9 % High 4.3-5.6 [facility] Comment on above: Order Comment: Roberto talbot Type: BLOOD SPECIMEN Ordering Facility: External Submitter Address: , , Result Comment: Amy[place] Diabetes Association guidelines indicate that patients with HgbA1c in the range 5.7-6.4% are at increased risk for development of diabetes, and intervention by lifestyle modification may be beneficial. HgbA1c greater or equal to 6.5% is considered diagnostic of diabetes. Performed By: #### 5 5454-3 #### [facility] CLIA [id number] [address] [address] [place] T4 Free SerPl-mCncon 025 Free T4 [Mass/Vol] 1.1 ng/dL Normal 0.9-1.7 [facility] Comment on above: Order Comment: Speci men Type: BLOOD SPECIMEN Ordering Facility: External Submitter Address: , , Performed By: #### 3 024-7, 07991-3, TSHRF #### [facility] CLIA [id number] [address] [place] [address] [place] TSH W/REFLEX FT4on 5 TSH Qn 4.340 m[IU]/L High 0.270-4.200 [facility] Comment [...] Thyroid, 2017:27:3:315-389. Performed By: #### 3 024-7, 14751-4, TSHRF #### [facility] CLIA [id number] [address] [place] [address] [place] Culture, Blood (WB)on 2023 CUB Blood cultures x2, from two different sites No growth in 5 days. Normal [facility] Comment on above: Performed By: #### L 509.7001 #### [facility] [address] [place], [address] Basic Metabolic Profile (BMP )on 11-12-2024 BUN/CRE 33.0 RATIO High 10-20 [facility] Comment on above: Performed By: #### L 501.080 #### [facility] [address] [place], [address] CA,Total 8.6 mg/dL Normal 8.5-10.1 [facility] Comment on above: Performed By: #### L 501.080 #### [facility] [address] [place], [address] Chloride [Moles/Vol] 97 mmol/L Low 98-107 [facility] Comment on above: Performed By: #### L 501.080 #### [facility] [address] [place], [address] CO2 [Moles/Vol] 36.0 mmol/L High 21.0-32.0 [facility] Comment on above: Performed By: #### L 501.080 #### [facility] [address] [place], [address] Creatinine [Mass/Vol] 0.91 mg/dL Normal 0.55-1.02 [facility] Comment on above: Result Comment: The validity of the calculated GFR GFRAA in patients over 70 years has not been determined. Clinical correlation is essential. Performed By: #### L 501.080 #### [facility] [address] [place], [address] ECRCL 126.01 ml/min Normal [facility] Comment on above: Performed By: #### L 501.080 #### [facility] [address] [place], [address] EST GFR - AA 85 mL/min Normal >60 [facility] Comment on above: Result Comment: Afri can [place] GFR Calc Performed By: #### L 501.080 #### [facility] [address] [place], [address] GAP 3 Low 5-15 [facility] Comment on above: Performed By: #### L 501.080 #### [facility] [address] [place], [address] GFR/1.73 sq M.predicted among non-blacks MDRD (S/P/Bld) [Vol rate/Area] 70 mL/min/{1.73_m2} Normal >60 [facility] Comment on above: Result Comment: Non- GFR Calc Performed By: #### L 501.080 #### [facility] [address] [place], [address] Glucose [Mass/Vol] 191 mg/dL High 74-106 [facility] Comment on above: Result Comment: Fast ing Glucose result greater than or equal to 126 mg/dL suggests DIABETES MELLITUS per A.D.A. criteria. Performed By: #### L 501.080 #### [facility] [address] [place], [address] Potassium [Moles/Vol] 4.2 mmol/L Normal 3.5-5.1 [facility] Comment on above: Performed By: #### L 501.080 #### [facility] [address] [place], [address] Sodium [Moles/Vol] 136 mmol/L Normal 136-145 [facility] Comment on above: Performed By: #### L 501.080 #### [facility] [address] [place], [address] Urea nitrogen [Mass/Vol] 30 mg/dL High 7-18 [facility] Comment on above: Performed By: #### L 501.080 #### [facility] [address] [place], [address] Bedside Glucoseon 11-12-2024 FINGERSTICK GLU 233 mg/dL High 74-106 [facility] Comment on above: Result Comment: CESAR GEMENT OF PATIENT CARE PER NURSING PROTOCOL Performed By: #### L 501.080 #### [facility] [address] [place], [address] FINGERSTICK GLU 328 mg/dL High 74-106 [facility] Comment on above: Result Comment: CESAR GEMENT OF PATIENT CARE PER NURSING PROTOCOL Performed By: #### L 499.0042 #### [facility] [address] [place], [address] FINGERSTICK GLU 206 mg/dL High 74-106 [facility] Comment on above: Result Comment: CESAR GEMENT OF PATIENT CARE PER NURSING PROTOCOL Performed By: #### L 501.080 #### [facility] [address] [place], [address] CBC W/Diff, Automatedon 12-12 03-2023 Absolute Lymph 1.75 X10 3/uL Normal 0.83-4.51 [facility] Comment on above: Performed By: #### L 501.080 #### [facility] [address] [place], [address] Absolute Neut 6.5 X10 3/uL Normal 2.0-7.7 [facility] Comment on above: Performed By: #### L 501.080 #### [facility] [address] [place], [address] Basophils/100 WBC (Bld) 0.6 % Normal 0-1 [facility] Comment on above: Performed By: #### L 501.080 #### [facility] [address] [place], [address] Eosinophils/100 WBC (Bld) 4.3 % Normal 0-5 [facility] Comment on above: Performed By: #### L 501.080 #### [facility] [address] [place], [address] Erythrocyte distribution width (RBC) [Ratio] 13.3 % Normal 11.6-14.6 [facility] Comment on above: Performed By: #### L 501.080 #### [facility] [address] [place], [address] Hematocrit (Bld) [Volume fraction] 28.8 % Low 37-47 [facility] Comment on above: Performed By: #### L 501.080 #### [facility] [address] [place], [address] Hemoglobin (Bld) [Mass/Vol] 8.7 g/dL Low 12.0-15.0 [facility] Comment on above: Performed By: #### L 501.080 #### [facility] [address] [place], [address] IG% 0.900 Normal 0.0-0.9 [facility] Comment on above: Result Comment: IG% - Immature Granulocytes (promyelocytes, myelocytes and metamyelocytes) > 1% indicates that a LEFT SHIFT is Present. Performed By: #### L 501.080 #### [facility] [address] [place], [address] Lymphocytes/100 WBC (Bld) 18.9 % Low 19-41 [facility] Comment on above: Performed By: #### L 501.080 #### [facility] [address] [place], [address] MCH (RBC) [Entitic mass] 27.8 pg Normal 27.0-32.0 [facility] Comment on above: Performed By: #### L 501.080 #### [facility] [address] [place], [address] MCHC (RBC) [Mass/Vol] 30.2 g/dL Low 32-36 [facility] Comment on above: Performed By: #### L 501.080 #### [facility] [address] [place], [address] MCV (RBC) [Entitic vol] 92.0 fL Normal 81-99 [facility] Comment on above: Performed By: #### L 501.080 #### [facility] [address] [place], [address] Monocytes/100 WBC (Bld) 4.9 % Normal 0-10 [facility] Comment on above: Performed By: #### L 501.080 #### [facility] [address] [place], [address] Neutrophils/100 WBC (Bld) 70.4 % High 47-70 [facility] Comment on above: Performed By: #### L 501.080 #### [facility] [address] [place], [address] Nucleated RBC (Bld) [#/Vol] 0.2 10*3/uL Normal 0-5 [facility] Comment on above: Performed By: #### L 501.080 #### [facility] [address] [place], [address] Platelet mean volume (Bld) [Entitic vol] 10.3 fL Normal 6.2-12.0 [facility] Comment on above: Performed By: #### L 501.080 #### [facility] [address] [place], [place], [address] Platelets (Bld) [#/Vol] 261 10*3/uL Normal 150-450 [facility] Comment on above: Performed By: #### L 501.080 #### [facility] Laboratory [address] [place], [address] RBC (Bld) [#/Vol] 3.13 10*6/uL Low 4.2-5.4 [facility] Comment on above: Performed By: #### L 501.080 #### [facility] Laboratory [address] [place], [address] RDW SD 45.2 fl High 35.1-43.9 [facility] Comment on above: Performed By: #### L 501.080 #### [facility] Laboratory [address] [place], [address] WBC (Bld) [#/Vol] 9.2 10*3/uL Normal 4.4-11.0 [facility] Comment on above: Performed By: #### L 501.080 #### [facility] Laboratory [address] [place], [address] Discharge Instructionon 10-31 Discharge Instruction [facility] Medical Records Department [address] [place] [address] Instructions for Home/Discharge Instructions 11/12/24 1620 MR#: [id number] Acct: [id number] Name: MACARIO WALLACE Rep #: [id number] : 1975 49 From: Ling Neville MD [...] 80 mg tablet 80 mg PO QHS rusigpjl-[id number]-KN-[id number] lcium-mins 1 EACH tablet 1 ea PO [...] DO; Dr. Cody Gonzalez MD Signed Normal [facility] Echo Complete W/ Contraston 11-12-2024 Echo Complete W/ Contrast [facility] [address] [place] [address] Echo Complete W/ Contrast 11/12/24 1449 MR#: [id number] Acct: [id number] Name: MACARIO WALLACE Rep #: [id number] : 1975 49 From: Stefano Lebron MD [...] MD Date Dictated: 11/12/24 1449 Date Transcribed: 11/13/241401 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: Signed Normal [facility] Magnesiumon 11-12-2024 Magnesium [Mass/Vol] 2.1 mg/dL Normal 1.6-2.6 [facility] Comment on above: Performed By: #### L 501.080 #### [facility] Laboratory [address] [place], [address] Phosphoruson 11-12-2024 Phosphate [Mass/Vol] 2.3 mg/dL Low 2.5-4.9 [facility] Comment on above: Performed By: #### L 501.080 #### [facility] Laboratory [address] [place], [address] Vancomycin, Trough Levelon 1 01-13-2024 VANCO, TROUGH 20.7 ug/mL High 5.0-15.0 [facility] Comment on above: Order Comment: 1200 Result Comment: VANC OMYCIN STANDARED DRUG THERAPY TROUGH LEVEL: 5.0 - 15.0 mg/L VANCOMYCIN HIGH INTENSITY THERAPY TROUGH LEVEL: 15.0 - 20.0 mg/L High Intensity therapy recommended for serious life threatening infections include: - Meningitis -Endocarditis -Pneumonia (Ventilator/Healtcare Associated) -Sepsis PLEASE CONTACT PHARMACY SERVICES (#5013) FOR INTERPRETATION OF RESULTS. Performed By: #### L 501.080 #### [facility] Laboratory [address] [facility] [address] Wound Cultureon 11-12-2024 List Antibiotics Last 48 Hours? vancomycin, zosyn Copy of report sent to Infection Control Printer [id number] 11/12/24 0917 [facility] Meth. resistant Staph. aureus Amount Growth 2+ [...] S Vancomycin Islt VIKTOR 1 S Normal [facility] Comment on above: Performed By: #### L 501.080 #### [facility] Laboratory [address] [facility] [address] Bedside Glucoseon 11-11-2024 FINGERSTICK GLU 127 mg/dL High 74-106 [facility] Comment on above: Result Comment: CESAR GEMENT OF PATIENT CARE PER NURSING PROTOCOL Performed By: #### L 501.080 #### [facility] Laboratory [address] [facility] [address] FINGERSTICK GLU 156 mg/dL High 74-106 [facility] Comment on above: Result Comment: CESAR GEMENT OF PATIENT CARE PER NURSING PROTOCOL Performed By: #### L 501.080 #### [facility] Laboratory [address] [place], [address] FINGERSTICK GLU 187 mg/dL High 74-106 [facility] Comment on above: Result Comment: CESAR GEMENT OF PATIENT CARE PER NURSING PROTOCOL Performed By: #### L 499.0042 #### [facility] Laboratory [address] [place], [address] FINGERSTICK GLU 200 mg/dL High 74-106 [facility] Comment on above: Result Comment: CESAR GEMENT OF PATIENT CARE PER NURSING PROTOCOL Performed By: #### L 9000.0800 #### [facility] Laboratory [address] [place], [address] CBC W/Diff, Automatedon 12 Absolute Lymph 1.71 X10 3/uL Normal 0.83-4.51 [facility] Comment on above: Performed By: #### L 9000.0800 #### [facility] Laboratory [address] [place], [address] Absolute Neut 12.3 X10 3/uL High 2.0-7.7 [facility] Comment on above: Performed By: #### L 9000.0800 #### [facility] Laboratory [address] [place], [address] Basophils/100 WBC (Bld) 0.5 % Normal 0-1 [facility] Comment on above: Performed By: #### L 9000.0800 #### [facility] Laboratory [address] [place], [address] Eosinophils/100 WBC (Bld) 2.5 % Normal 0-5 [facility] Comment on above: Performed By: #### L 9000.0800 #### [facility] Laboratory [address] [place], [address] Erythrocyte distribution width (RBC) [Ratio] 13.4 % Normal 11.6-14.6 [facility] Comment on above: Performed By: #### L 9000.0800 #### [facility] Laboratory [address] [place], [address] Hematocrit (Bld) [Volume fraction] 30.3 % Low 37-47 [facility] Comment on above: Performed By: #### L 9000.0800 #### [facility] Laboratory [address] [place], [address] Hemoglobin (Bld) [Mass/Vol] 9.0 g/dL Low 12.0-15.0 [facility] Comment on above: Performed By: #### L 9000.0800 #### [facility] Laboratory [address] [place], [address] IG% 0.500 Normal 0.0-0.9 [facility] Comment on above: Result Comment: IG% - Immature Granulocytes (promyelocytes, myelocytes and metamyelocytes) > 1% indicates that a LEFT SHIFT is Present. Performed By: #### L 9000.0800 #### [facility] Laboratory [address] [place], [address] Lymphocytes/100 WBC (Bld) 11.2 % Low 19-41 [facility] Comment on above: Performed By: #### L 9000.0800 #### [facility] Laboratory [address] [place], [address] MCH (RBC) [Entitic mass] 27.8 pg Normal 27.0-32.0 [facility] Comment on above: Performed By: #### L 9000.0800 #### [facility] Laboratory [address] [place], [address] MCHC (RBC) [Mass/Vol] 29.7 g/dL Low 32-36 [facility] Comment on above: Performed By: #### L 9000.0800 #### [facility] Laboratory [address] [place], [address] MCV (RBC) [Entitic vol] 93.5 fL Normal 81-99 [facility] Comment on above: Performed By: #### L 9000.0800 #### [facility] Laboratory [address] [place], [address] Monocytes/100 WBC (Bld) 4.9 % Normal 0-10 [facility] Comment on above: Performed By: #### L 9000.0800 #### [facility] Laboratory [address] [place], [address] Neutrophils/100 WBC (Bld) 80.4 % High 47-70 [facility] Comment on above: Performed By: #### L 9000.0800 #### [facility] Laboratory [address] [place], [address] Nucleated RBC (Bld) [#/Vol] 0 10*3/uL Normal 0-5 [facility] Comment on above: Performed By: #### L 9000.0800 #### [facility] Laboratory [address] [place], [address] Platelet mean volume (Bld) [Entitic vol] 9.9 fL Normal 6.2-12.0 [facility] Comment on above: Performed By: #### L 9000.0800 #### [facility] Laboratory [address] [place], [address] Platelets (Bld) [#/Vol] 256 10*3/uL Normal 150-450 [facility] Comment on above: Performed By: #### L 9000.0800 #### [facility] Laboratory [address] [place], [address] RBC (Bld) [#/Vol] 3.24 10*6/uL Low 4.2-5.4 [facility] Comment on above: Performed By: #### L 9000.0800 #### [facility] Laboratory [address] [place], [address] RDW SD 46.0 fl High 35.1-43.9 [facility] Comment on above: Performed By: #### L 9000.0800 #### [facility] Laboratory [address] [place], [address] WBC (Bld) [#/Vol] 15.3 10*3/uL High 4.4-11.0 [facility] Comment on above: Performed By: #### L 9000.0800 #### [facility] Laboratory [address] [place], [address] Comprehensive Metabolic Prof ilon 11-11-2024 Albumin [Mass/Vol] 2.7 g/dL Low 3.2-5.0 [facility] Comment on above: Performed By: #### L 9000.0800 #### [facility] Laboratory [address] [place], [address] Albumin/Globulin [Mass ratio] 0.6 {ratio} Low 0.9-2.4 [facility] Comment on above: Performed By: #### L 9000.0800 #### [facility] Laboratory [address] [place], [address] ALK P 62 U/L Normal 45-117 [facility] Comment on above: Performed By: #### L 9000.0800 #### [facility] Laboratory [address] [place], [address] ALT [Catalytic activity/Vol] 17 U/L Normal 13-56 [facility] Comment on above: Performed By: #### L 9000.0800 #### [facility] Laboratory [address] [place], [address] AST [Catalytic activity/Vol] 18 U/L Normal 15-37 [facility] Comment on above: Performed By: #### L 9000.0800 #### [facility] Laboratory [address] [place], [address] Bilirubin [Mass/Vol] 0.30 mg/dL Normal 0.20-1.00 [facility] Comment on above: Result Comment: For patients on eltrombopag therapy, use of Dimension [place] TBIL is not recommended. Performed By: #### L 9000.0800 #### [facility] Laboratory [address] [place], [address] BUN/CRE 28.4 RATIO High 10-20 [facility] Comment on above: Performed By: #### L 9000.0800 #### [facility] Laboratory [address] [place], [address] CA,Total 8.1 mg/dL Low 8.5-10.1 [facility] Comment on above: Performed By: #### L 9000.0800 #### [facility] Laboratory [address] [place], [address] Chloride [Moles/Vol] 95 mmol/L Low 98-107 [facility] Comment on above: Performed By: #### L 9000.0800 #### [facility] Laboratory [address] [place], [address] CO2 [Moles/Vol] 35.0 mmol/L High 21.0-32.0 [facility] Comment on above: Performed By: #### L 9000.0800 #### [facility] Laboratory [address] [place], [address] Creatinine [Mass/Vol] 1.41 mg/dL High 0.55-1.02 [facility] Comment on above: Result Comment: The validity of the calculated GFR GFRAA in patients over 70 years has not been determined. Clinical correlation is essential. Performed By: #### L 9000.0800 #### [facility] Laboratory [address] [place], [address] ECRCL 80.95 ml/min Normal [facility] Comment on above: Performed By: #### L 9000.0800 #### [facility] Laboratory [address] [place], [address] EST GFR - AA 51 mL/min Low >60 [facility] Comment on above: Result Comment: Afri can [place] GFR Calc Performed By: #### L 9000.0800 #### [facility] Laboratory [address] [place], [address] GAP 3 Low 5-15 [facility] Comment on above: Performed By: #### L 9000.0800 #### [facility] Laboratory [address] [place], [address] GFR/1.73 sq M.predicted among non-blacks MDRD (S/P/Bld) [Vol rate/Area] 42 mL/min/{1.73_m2} Low >60 [facility] Comment on above: Result Comment: Non- GFR Calc Performed By: #### L 9000.0800 #### [facility] Laboratory [address] [place], [address] Globulin (S) [Mass/Vol] 4.4 g/dL High 2.2-4.2 [facility] Comment on above: Performed By: #### L 9000.0800 #### [facility] Laboratory [address] [place], [address] Glucose [Mass/Vol] 197 mg/dL High 74-106 [facility] Comment on above: Result Comment: Fast ing Glucose result greater than or equal to 126 mg/dL suggests DIABETES MELLITUS per A.D.A. criteria. Performed By: #### L 9000.0800 #### [facility] Laboratory [address] [place], [address] Potassium [Moles/Vol] 4.3 mmol/L Normal 3.5-5.1 [facility] Comment on above: Performed By: #### L 9000.0800 #### [facility] Laboratory [address] [place], [address] Sodium [Moles/Vol] 134 mmol/L Low 136-145 [facility] Comment on above: Performed By: #### L 9000.0800 #### [facility] Laboratory [address] [place], [address] T PROT 7.1 g/dL Normal 6.4-8.2 [facility] Comment on above: Performed By: #### L 9000.0800 #### [facility] Laboratory [address] [place], [address] Urea nitrogen [Mass/Vol] 40 mg/dL High 7-18 [facility] Comment on above: Performed By: #### L 9000.0800 #### [facility] Laboratory [address] [place], [address] Consultation - Infectious Dx on 11-11-2024 Consultation - Infectious Dx [facility] Medical Records Department [address] [place] [address] Consultation - Infectious Dx 11/11/24 [facility] MR#: [id number] Acct: [id number] Name: MACARIO WALLACE Rep #: [id number] : 1975 49 From: Cody Gonzalez MD PCP: Dr. Delmy Solorzano MD Status:ADM IN Location: ICU [id number] Assessment Plan Assessment/Plan (1) Acute on chronic [...] performed and neg except as noted above. [facility] Medical History Arthritis Non-smoker CHF (congestive heart [...] #60 TABLE (more content not included)... Normal [facility] Magnesiumon 11-11-2024 Magnesium [Mass/Vol] 2.4 mg/dL Normal 1.6-2.6 [facility] Comment on above: Performed By: #### L 9000.0800 #### [facility] Laboratory [facility] [place], [address] Phosphoruson 11-11-2024 Phosphate [Mass/Vol] 3.6 mg/dL Normal 2.5-4.9 [facility] Comment on above: Performed By: #### L 9000.0800 #### [facility] Laboratory [address] [place], [address] BNP,B-Type NATRIURETIC PEPTI Robb 11-10-2024 Natriuretic peptide B (Bld) [Mass/Vol] 20.5 pg/mL Normal 0-100 [facility] Comment on above: Performed By: #### L 501.080 #### [facility] Laboratory [address] [place], [address] Bedside Glucoseon 11-10-2024 FINGERSTICK GLU 200 mg/dL High -106 [facility] Comment on above: Result Comment: CESAR GEMENT OF PATIENT CARE PER NURSING PROTOCOL Performed By: #### L 499.0042 #### [facility] Laboratory [address] [place], [address] FINGERSTICK GLU 226 mg/dL High [address] [place] [address] Comment on above: Result Comment: CESAR GEMENT OF PATIENT CARE PER NURSING PROTOCOL Performed By: #### L 501.080 #### [facility] Laboratory [address] [place], [address] FINGERSTICK GLU 187 mg/dL High [address] [place] [address] Comment on above: Result Comment: CESAR GEMENT OF PATIENT CARE PER NURSING PROTOCOL Performed By: #### L 501.080 #### [facility] Laboratory [address] [place], [address] FINGERSTICK GLU 309 mg/dL High [address] [place] [address] Comment on above: Result Comment: CESAR GEMENT OF PATIENT CARE PER NURSING PROTOCOL Performed By: #### L 501.080 #### [facility] Laboratory [address] [place], [address] FINGERSTICK GLU 417 mg/dL High [address] [place] [address] Comment on above: Result Comment: CESAR OLEARY OF PATIENT CARE PER NURSING PROTOCOL Performed By: #### L 501.080 #### [facility] Laboratory [address] [place], [address] Blood Gases by [facility] 024 Base excess Calc (Bld) [Moles/Vol] 10 mmol/L High -2 to +2 [facility] Comment on above: Performed By: #### L 501.080 #### [facility] Laboratory [address] [place], [address] Blood Gas Type ART Normal [facility] Comment on above: Performed By: #### L 501.080 #### [facility] Laboratory [address] [place], [address] CO2 [Moles/Vol] 38 mmol/L Normal [facility] Comment on above: Performed By: #### L 501.080 #### [facility] Laboratory [address] [place], [address] Comment AVAPS 25 10 Normal [facility] Comment on above: Performed By: #### L 501.080 #### [facility] Laboratory [address] [place], [address] FI02 50.0 Normal [facility] Comment on above: Performed By: #### L 501.080 #### [facility] Laboratory [address] [place], [address] HCO3 (Bld) [Moles/Vol] 35.5 mmol/L High 22-26 [facility] Comment on above: Performed By: #### L 501.080 #### [facility] Laboratory [address] [place], [address] Mode Not entered Normal [facility] Comment on above: Performed By: #### L 501.080 #### [facility] Laboratory [address] [place], [address] O2 Delivery Dev BiPAP [facility] Comment on above: Performed By: #### L 501.080 #### [facility] Laboratory [address] [place], [address] pCO2 67.1 mmHg Invalid Interpretation Code 35-45 [facility] Comment on above: Performed By: #### L 501.080 #### [facility] Laboratory [address] [place], [address] PEEP 8 Normal [facility] Comment on above: Performed By: #### L 501.080 #### [facility] Laboratory [address] [place], [address] pH (Bld) 7.33 [pH] Low 7.35-7.45 [facility] Comment on above: Performed By: #### L 501.080 #### [facility] Laboratory [address] [place], [address] PO2 143 mmHG High 75-100 [facility] Comment on above: Performed By: #### L 501.080 #### [facility] Laboratory [address] [place], [address] Read Back By Yes [facility] Comment on above: Performed By: #### L 501.080 #### [facility] Laboratory [address] [place], [address] Results To FADI [facility] Comment on above: Performed By: #### L 501.080 #### [facility] Laboratory [address] [place], [address] RR 12 Normal [facility] Comment on above: Performed By: #### L 501.080 #### [facility] Laboratory [address] [place], [address] SITE R Brach Normal [facility] Comment on above: Performed By: #### L 501.080 #### [facility] Laboratory [address] [place], [address] SO2 99 Normal 95-99 [facility] [facility] Comment on above: Performed By: #### L 501.080 #### [facility] [address] [place], [address] Time Given 11:58:12 Normal [facility] Comment on above: Performed By: #### L 501.080 #### [facility] [address] [place], [address] Vt 500.0 mL Normal [facility] Comment on above: Performed By: #### L 501.080 #### [facility] [address] [place], [address] CBC W/Diff, Automatedon 12- Absolute Lymph 2.08 X10 3/uL Normal 0.83-4.51 [facility] Comment on above: Performed By: #### L 501.080 #### [facility] [address] [place], [address] Absolute Neut 16.7 X10 3/uL High 2.0-7.7 [facility] Comment on above: Performed By: #### L 501.080 #### [facility] [address] [place], [address] Basophils/100 WBC (Bld) 0.5 % Normal 0-1 [facility] Comment on above: Performed By: #### L 501.080 #### [facility] [address] [place], [address] Eosinophils/100 WBC (Bld) 0.4 % Normal 0-5 [facility] Comment on above: Performed By: #### L 501.080 #### [facility] [address] [place], [address] Erythrocyte distribution width (RBC) [Ratio] 13.4 % Normal 11.6-14.6 [facility] Comment on above: Performed By: #### L 501.080 #### [facility] [address] [place], [address] Hematocrit (Bld) [Volume fraction] 31.6 % Low 37-47 [facility] Comment on above: Performed By: #### L 501.080 #### [facility] [address] [place], [address] Hemoglobin (Bld) [Mass/Vol] 9.5 g/dL Low 12.0-15.0 [facility] Comment on above: Performed By: #### L 501.080 #### [facility] [address] [place], [address] IG% 0.900 Normal 0.0-0.9 [facility] Comment on above: Result Comment: IG% - Immature Granulocytes (promyelocytes, myelocytes and metamyelocytes) > 1% indicates that a LEFT SHIFT is Present. Performed By: #### L 501.080 #### [facility] [address] [place], [address] Lymphocytes/100 WBC (Bld) 10.2 % Low 19-41 [facility] Comment on above: Performed By: #### L 501.080 #### [facility] [address] [place], [address] MCH (RBC) [Entitic mass] 27.7 pg Normal 27.0-32.0 [facility] Comment on above: Performed By: #### L 501.080 #### [facility] [address] [place], [address] MCHC (RBC) [Mass/Vol] 30.1 g/dL Low 32-36 [facility] Comment on above: Performed By: #### L 501.080 #### [facility] [address] [place], [address] MCV (RBC) [Entitic vol] 92.1 fL Normal 81-99 [facility] Comment on above: Performed By: #### L 501.080 #### [facility] [address] [place], [address] Monocytes/100 WBC (Bld) 5.6 % Normal 0-10 [facility] Comment on above: Performed By: #### L 501.080 #### [facility] [address] [place], [address] Neutrophils/100 WBC (Bld) 82.4 % High 47-70 [facility] Comment on above: Performed By: #### L 501.080 #### [facility] [address] [place], [address] Nucleated RBC (Bld) [#/Vol] 0 10*3/uL Normal 0-5 [facility] Comment on above: Performed By: #### L 501.080 #### [facility] [address] [place], [address] Platelet mean volume (Bld) [Entitic vol] 10.1 fL Normal 6.2-12.0 [facility] Comment on above: Performed By: #### L 501.080 #### [facility] [address] [place], [address] Platelets (Bld) [#/Vol] 263 10*3/uL Normal 150-450 [facility] Comment on above: Performed By: #### L 501.080 #### [facility] [address] [place], [address] RBC (Bld) [#/Vol] 3.43 10*6/uL Low 4.2-5.4 [facility] Comment on above: Performed By: #### L 501.080 #### [facility] [address] [place], [address] RDW SD 45.4 fl High 35.1-43.9 [facility] Comment on above: Performed By: #### L 501.080 #### [facility] [address] [place], [address] WBC (Bld) [#/Vol] 20.3 10*3/uL High 4.4-11.0 [facility] Comment on above: Performed By: #### L 501.080 #### [facility] [address] [place], [address] Comprehensive Metabolic Prof ilon 11-10-2024 Albumin [Mass/Vol] 2.8 g/dL Low 3.2-5.0 [facility] Comment on above: Performed By: #### L 501.080 #### [facility] [address] [place], [address] Albumin/Globulin [Mass ratio] 0.7 {ratio} Low 0.9-2.4 [facility] Comment on above: Performed By: #### L 501.080 #### [facility] [address] [place], [address] ALK P 74 U/L Normal 45-117 [facility] Comment on above: Performed By: #### L 501.080 #### [facility] [address] [place], [address] ALT [Catalytic activity/Vol] 17 U/L Normal 13-56 [facility] Comment on above: Performed By: #### L 501.080 #### [facility] [address] [place], [address] AST [Catalytic activity/Vol] 12 U/L Low 15-37 [facility] Comment on above: Performed By: #### L 501.080 #### [facility] [address] [place], [address] Bilirubin [Mass/Vol] 0.40 mg/dL Normal 0.20-1.00 [facility] Comment on above: Result Comment: For patients on eltrombopag therapy, use of Dimension [place] TBIL is not recommended. Performed By: #### L 501.080 #### [facility] [address] [place], [address] BUN/CRE 27.5 RATIO High 10-20 [facility] Comment on above: Performed By: #### L 501.080 #### [facility] [address] [place], [address] CA,Total 8.4 mg/dL Low 8.5-10.1 [facility] Comment on above: Performed By: #### L 501.080 #### [facility] [address] [place], [address] Chloride [Moles/Vol] 94 mmol/L Low 98-107 [facility] Comment on above: Performed By: #### L 501.080 #### [facility] [address] [place], [address] CO2 [Moles/Vol] 33.0 mmol/L High 21.0-32.0 [facility] Comment on above: Performed By: #### L 501.080 #### [facility] [address] [place], [address] Creatinine [Mass/Vol] 1.20 mg/dL High 0.55-1.02 [facility] Comment on above: Result Comment: The validity of the calculated GFR GFRAA in patients over 70 years has not been determined. Clinical correlation is essential. Performed By: #### L 501.080 #### [facility] [address] [place], [address] ECRCL 95.12 ml/min Normal [facility] Comment on above: Performed By: #### L 501.080 #### [facility] [address] [place], [address] EST GFR - AA 62 mL/min Normal >60 [facility] Comment on above: Result Comment: Afri can [place] GFR Calc Performed By: #### L 501.080 #### [facility] [address] [place], [address] GAP 5 Normal 5-15 [facility] Comment on above: Performed By: #### L 501.080 #### [facility] [address] [place], [address] GFR/1.73 sq M.predicted among non-blacks MDRD (S/P/Bld) [Vol rate/Area] 51 mL/min/{1.73_m2} Low >60 [facility] Comment on above: Result Comment: Non- GFR Calc Performed By: #### L 501.080 #### [facility] [address] [place], [address] Globulin (S) [Mass/Vol] 4.2 g/dL Normal 2.2-4.2 [facility] Comment on above: Performed By: #### L 501.080 #### [facility] [address] [place], [address] Glucose [Mass/Vol] 321 mg/dL High 74-106 [facility] Comment on above: Result Comment: Gluc ose result greater than or equal to 200 mg/dL suggests DIABETES MELLITUS per A.D.A. criteria. Performed By: #### L 501.080 #### [facility] [address] [place], [address] Potassium [Moles/Vol] 4.0 mmol/L Normal 3.5-5.1 [facility] Comment on above: Performed By: #### L 501.080 #### [facility] [address] [place], [address] Sodium [Moles/Vol] 132 mmol/L Low 136-145 [facility] Comment on above: Performed By: #### L 501.080 #### [facility] [address] [place], [address] T PROT 7.0 g/dL Normal 6.4-8.2 [facility] Comment on above: Performed By: #### L 501.080 #### [facility] [address] [place], [address] Urea nitrogen [Mass/Vol] 33 mg/dL High 7-18 [facility] Comment on above: Performed By: #### L 501.080 #### [facility] [address] [place], [address] Gram Stainon 11-10-2024 GS List Antibiotics Last 48 Hours? vancomycin, zosyn Gram Stain Rare Gram positive cocci Rare White Blood Cells No Epithelial cells Normal [facility] Comment on above: Performed By: #### L 501.080 #### [facility] [address] [place], [address] Hemoglobin A1con 11-10-2024 HbA1c (Bld) [Mass fraction] 10.4 % High 3.8-5.6 [facility] Comment on above: Result Comment: Norm al < 5.7 % Prediabetic 5.7 - 6.4 % Diabetic >or= 6.5 % Please note range changes. Performed By: #### L 501.080 #### [facility] [address] [place], [address] Lactic Acidon 11-10-2024 Lactate [Moles/Vol] 1.1 mmol/L Normal 0.4-1.9 [facility] Comment on above: Performed By: #### L 509.7001 #### [facility] [address] [place], [address] Legionella Antigen Urineon 1 01-11-2024 LEGU Legionella Antigen result interpretation: L pneumo Ag Ur Ql Negative Presumptive negative for Legionella pneumophila serogroup 1 antigen in urine, suggesting no recent or current infection. L pneumo Ag Ur Ql Legionella Ag, Urine Negative (See interpretation below) * This is an amended result. * A prior result that was reported as final has been changed. 11/12/2435 by JENNIFER [facility] Comment on above: Performed By: #### L 400.0001 #### [facility] [address] [place], [address] M100.678on 11-10-2024 M100.678 Pending SARS-CoV-2 (COVID 19) Negative INFLUENZA A Negative INFLUENZA B Negative RSV PCR Negative [facility] Comment on above: Performed By: #### L 501.080 #### [facility] [address] [place], [address] [id number] 11-10-2024 [id number] MRSA/SAUR WOUND PCR Copy [...] final has been changed. 11/10/24 0736 by [facility] Comment on above: Performed By: #### L 501.080 #### [facility] [address] [place], [address] RESPIRATORY PANEL MOLECULARo n 11-10-2024 RP PANEL ADENOVIRUS Not Detected INFLUENZA A Not Detected INFLUENZA A (SUBTYPE H1) Not Detected INFLUENZA A (SUBTYPE H3) Not Detected INFLUENZA B Not Detected HUMAN METAPHNEUMO Not Detected PARAINFLUENZA 1 Not Detected PARAINFLUENZA 2 Not Detected PARAINFLUENZA 3 Not Detected PARAINFLUENZA 4 Not Detected RHINOVIRUS Not Detected RSV A Not Detected RSV B Not Detected Normal [facility] Comment on above: Performed By: #### L 400.0001 #### [facility] [address] [place], [place], [address] Strep pneumoniae Antig(UR,CS F)on 11-10-2024 STPAG URINE [...] has been changed. 11/12/24 0835 by JENNIFER Previously reported as: Normal [facility] Comment on above: Performed By: #### L 400.0001 #### [facility] [address] [place], [address] Acetone Serumon 11-09-2024 ACETONE SERUM Negative Normal NEG [facility] Comment on above: Performed By: #### L 509.7001 #### [facility] [address] [place], [address] Blood Gases by CPSon 024 ANIL TEST N/A Normal [facility] Comment on above: Performed By: #### L 9000.0800 #### [facility] [address] [place], [address] Base excess Calc (Bld) [Moles/Vol] 9 mmol/L High -2 to +2 [facility] Comment on above: Performed By: #### L 9000.0800 #### [facility] [address] [place], [address] Blood Gas Type ART [facility] Comment on above: Performed By: #### L 0.0800 #### [facility] [address] [place], [address] CO2 [Moles/Vol] 37 mmol/L Normal [facility] Comment on above: Performed By: #### L 9000.0800 #### [facility] [address] [place], [address] FI02 6.0 Normal [facility] Comment on above: Performed By: #### L 0.0800 #### [facility] [address] [place], [address] HCO3 (Bld) [Moles/Vol] 34.9 mmol/L High 22-26 [facility] Comment on above: Performed By: #### L 9000.0800 #### [facility] [address] [place], [address] Mode Not entered Normal [facility] Comment on above: Performed By: #### L 9000.0800 #### [facility] [address] [place], [address] O2 Delivery Dev Cannula Normal [facility] Comment on above: Performed By: #### L 8999.0800 #### [facility] [address] [place], [address] pCO2 65.2 mmHg High 35-45 [facility] Comment on above: Performed By: #### L 0.0800 #### [facility] [address] [place], [address] pH (Bld) 7.34 [pH] Low 7.35-7.45 [facility] Comment on above: Performed By: #### L 9000.0800 #### [facility] [address] [place], [address] PO2 88 mmHG Normal 75-100 [facility] Comment on above: Performed By: #### L 9000.0800 #### [facility] [address] [place], [address] SITE L Radial Normal [facility] Comment on above: Performed By: #### L 9000.0800 #### [facility] [address] [place], [address] SO2 96 Normal 95-99 [facility] Comment on above: Performed By: #### L 9000.0800 #### [facility] [address] [place], [address] CBC W/Diff, Automatedon 12-1 0-2024 Absolute Lymph 1.98 X10 3/uL Normal 0.83-4.51 [facility] Comment on above: Performed By: #### L 509.7001 #### [facility] [address] [place], [address] Absolute Neut 16.8 X10 3/uL High 2.0-7.7 [facility] Comment on above: Performed By: #### L 509.7001 #### [facility] [address] [place], [address] Basophils/100 WBC (Bld) 0.5 % Normal 0-1 [facility] Comment on above: Performed By: #### L 509.7000 #### [facility] [address] [place], [address] Eosinophils/100 WBC (Bld) 0.2 % Normal 0-5 [facility] Comment on above: Performed By: #### L 509.7001 #### [facility] [address] [place], [address] Erythrocyte distribution width (RBC) [Ratio] 13.5 % Normal 11.6-14.6 [facility] Comment on above: Performed By: #### L 509.7001 #### [facility] [address] [place], [address] Hematocrit (Bld) [Volume fraction] 31.3 % Low 37-47 [facility] Comment on above: Performed By: #### L 509.7001 #### [facility] [address] [place], [address] Hemoglobin (Bld) [Mass/Vol] 9.9 g/dL Low 12.0-15.0 [facility] Comment on above: Performed By: #### L 509.7001 #### [facility] [address] [place], [address] IG% 1.000 High 0.0-0.9 [facility] Comment on above: Result Comment: IG% - Immature Granulocytes (promyelocytes, myelocytes and metamyelocytes) > 1% indicates that a LEFT SHIFT is Present. Performed By: #### L 509.7001 #### [facility] [address] [place], [address] Lymphocytes/100 WBC (Bld) 9.8 % Low 19-41 [facility] Comment on above: Performed By: #### L 509.7001 #### [facility] [address] [place], [address] MCH (RBC) [Entitic mass] 28.4 pg Normal 27.0-32.0 [facility] Comment on above: Performed By: #### L 509.7001 #### [facility] [address] [place], [address] MCHC (RBC) [Mass/Vol] 31.6 g/dL Low 32-36 [facility] Comment on above: Performed By: #### L 509.7001 #### [facility] [address] [place], [address] MCV (RBC) [Entitic vol] 89.9 fL Normal 81-99 [facility] Comment on above: Performed By: #### L 509.7001 #### [facility] [address] [place], [address] Monocytes/100 WBC (Bld) 5.3 % Normal 0-10 [facility] Comment on above: Performed By: #### L 509.7001 #### [facility] [address] [place], [address] Neutrophils/100 WBC (Bld) 83.2 % High 47-70 [facility] Comment on above: Performed By: #### L 509.7001 #### [facility] [address] [place], [address] Nucleated RBC (Bld) [#/Vol] 0 10*3/uL Normal 0-5 [facility] Comment on above: Performed By: #### L 509.7001 #### [facility] [address] [place], [address] Platelet mean volume (Bld) [Entitic vol] 10.2 fL Normal 6.2-12.0 [facility] Comment on above: Performed By: #### L 509.7001 #### [facility] [address] [place], [address] Platelets (Bld) [#/Vol] 280 10*3/uL Normal 150-450 [facility] Comment on above: Performed By: #### L 509.7001 #### [facility] [address] [place], [address] RBC (Bld) [#/Vol] 3.48 10*6/uL Low 4.2-5.4 [facility] Comment on above: Performed By: #### L 509.7001 #### [facility] Laboratory [address] [place], [address] RDW SD 44.3 fl High 35.1-43.9 [facility] Comment on above: Performed By: #### L 509.7001 #### [facility] Laboratory [address] [place], [address] WBC (Bld) [#/Vol] 20.2 10*3/uL High 4.4-11.0 [facility] Comment on above: Performed By: #### L 509.7001 #### [facility] [address] [place], [address] Chest 1 View (Portable)on Chest 1 View (Portable) [facility] Imaging Services [address] [place] [address] Chest 1 View (Portable) MR#: [id number] Acct: [id number] Name: MACARIO WALLACE Rep #: [id number] : 1975 F 49 From: Gilbert Jameson DO PCP: Dr. Delmy Solorzano MD Status: [facility] ER Study: Chest 1 View (Portable) Date of Exam: 11/09/24 Exam# [id number] Ordering Dr: Faraz Flores DO [id number] INDICATION: SOB EXAMINATION/TECHNIQ UE: X-RAY - [...] Delmy Solorzano MD; Dr. Faraz Flores DO 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: Signed Normal [facility] Comprehensive Metabolic Prof ilon 11-09-2024 Albumin [Mass/Vol] 3.0 g/dL Low 3.2-5.0 [facility] Comment on above: Order Comment: 'TROP ' Serial specimen #1, #2 or #3: 1 Performed By: #### L 509.7001 #### [facility] [address] [place], [address] Albumin/Globulin [Mass ratio] 0.7 {ratio} Low 0.9-2.4 [facility] Comment on above: Order Comment: 'TROP ' Serial specimen #1, #2 or #3: 1 Performed By: #### L 509.7001 #### [facility] [address] [place], [address] ALK P 94 U/L Normal 45-117 [facility] Comment on above: Order Comment: 'TROP ' Serial specimen #1, #2 or #3: 1 Performed By: #### L 509.7001 #### [facility] Laboratory [address] [place], [address] ALT [Catalytic activity/Vol] 21 U/L Normal 13-56 [facility] Comment on above: Order Comment: 'TROP ' Serial specimen #1, #2 or #3: 1 Performed By: #### L 509.7001 #### [facility] [address] [place], [address] AST [Catalytic activity/Vol] 18 U/L Normal 15-37 [facility] Comment on above: Order Comment: 'TROP ' Serial specimen #1, #2 or #3: 1 Performed By: #### L 509.7001 #### [facility] Laboratory [address] [place], [address] Bilirubin [Mass/Vol] 0.30 mg/dL Normal 0.20-1.00 [facility] Comment on above: Order Comment: 'TROP ' Serial specimen #1, #2 or #3: 1 Result Comment: For patients on eltrombopag therapy, use of Dimension [place] TBIL is not recommended. Performed By: #### L 509.7001 #### [facility] [address] [place], [address] BUN/CRE 25.6 RATIO High 10-20 [facility] Comment on above: Order Comment: 'TROP ' Serial specimen #1, #2 or #3: 1 Performed By: #### L 509.7001 #### [facility] Laboratory [address] [place], [address] CA,Total 8.9 mg/dL Normal 8.5-10.1 [facility] Comment on above: Order Comment: 'TROP ' Serial specimen #1, #2 or #3: 1 Performed By: #### L 509.7001 #### [facility] [address] [place], [address] Chloride [Moles/Vol] 89 mmol/L Low 98-107 [facility] Comment on above: Order Comment: 'TROP ' Serial specimen #1, #2 or #3: 1 Performed By: #### L 509.7001 #### [facility] [address] [place], [address] CO2 [Moles/Vol] 31.0 mmol/L Normal 21.0-32.0 [facility] Comment on above: Order Comment: 'TROP ' Serial specimen #1, #2 or #3: 1 Performed By: #### L 509.7001 #### [facility] [address] [place], [address] Creatinine [Mass/Vol] 1.33 mg/dL High 0.55-1.02 [facility] Comment on above: Order Comment: 'TROP ' Serial specimen #1, #2 or #3: 1 Result Comment: The validity of the calculated GFR GFRAA in patients over 70 years has not been determined. Clinical correlation is essential. Performed By: #### L 509.7001 #### [facility] [address] [place], [address] ECRCL 85.69 ml/min Normal [facility] Comment on above: Order Comment: 'TROP ' Serial specimen #1, #2 or #3: 1 Performed By: #### L 509.7001 #### [facility] [address] [place], [address] EST GFR - AA 55 mL/min Low >60 [facility] Comment on above: Order Comment: 'TROP ' Serial specimen #1, #2 or #3: 1 Result Comment: Afri can [place] GFR Calc Performed By: #### L 509.7001 #### [facility] Laboratory [address] [place], [address] GAP 8 Normal 5-15 [facility] Comment on above: Order Comment: 'TROP ' Serial specimen #1, #2 or #3: 1 Performed By: #### L 509.7001 #### [facility] [address] [place], [address] GFR/1.73 sq M.predicted among non-blacks MDRD (S/P/Bld) [Vol rate/Area] 45 mL/min/{1.73_m2} Low >60 [facility] Comment on above: Order Comment: 'TROP ' Serial specimen #1, #2 or #3: 1 Result Comment: Non- GFR Calc Performed By: #### L 509.7000 #### [facility] [address] [place], [address] Globulin (S) [Mass/Vol] 4.3 g/dL High 2.2-4.2 [facility] Comment on above: Order Comment: 'TROP ' Serial specimen #1, #2 or #3: 1 Performed By: #### L 509.7001 #### [facility] [address] [place], [address] Glucose [Mass/Vol] 429 mg/dL High 74-106 [facility] Comment on above: Order Comment: 'TROP ' Serial specimen #1, #2 or #3: 1 Result Comment: Gluc ose result greater than or equal to 200 mg/dL suggests DIABETES MELLITUS per A.D.A. criteria. Performed By: #### L 509.7001 #### [facility] [address] [place], [address] Potassium [Moles/Vol] 4.0 mmol/L Normal 3.5-5.1 [facility] Comment on above: Order Comment: 'TROP ' Serial specimen #1, #2 or #3: 1 Performed By: #### L 509.7001 #### [facility] Laboratory [address] [place], [address] Sodium [Moles/Vol] 129 mmol/L Low 136-145 [facility] Comment on above: Order Comment: 'TROP ' Serial specimen #1, #2 or #3: 1 Performed By: #### L 509.7001 #### [facility] [address] [place], [address] T PROT 7.3 g/dL Normal 6.4-8.2 [facility] Comment on above: Order Comment: 'TROP ' Serial specimen #1, #2 or #3: 1 Performed By: #### L 509.7001 #### [facility] Laboratory [address] [place], [address] Urea nitrogen [Mass/Vol] 34 mg/dL High 7-18 [facility] Comment on above: Order Comment: 'TROP ' Serial specimen #1, #2 or #3: 1 Performed By: #### L 509.7001 #### [facility] Laboratory [address] [place], [address] Emergency Department Summary on 11-09-2024 Emergency Department Summary [facility] Medical Records Department [address] [place] [address] Emergency Department Summary 11/09/24 MR#: [id number] Acct: [id number] Name: MACARIO WALLACE Rep #: [id number] : 1975 49 From: Faraz Flores DO PCP: Dr. Demly Solorzano MD Status:REG ER Location: ED HPI History of Present Illness Chief Complaint: Shortness of Breath Informant: patient Onset/Context/Barbie nicole Onset: Days Context: gradual Timing: Continuous Quality: [...] Recent immobilization, Recent surgery or Recent travel [facility] Medical History Arthritis Non-smoker CHF (congestive heart [...] (Ozempic) m (more content not included)... Normal [facility] H AND P Exam - Hospitaliston 11-09-2024 H&P Exam - Hospitalist [facility] Medical Records Department [address] [place] [address] H P Exam - Hospitalist 11/09/24 2300 MR#: [id number] Acct: [id number] Name: MACARIO WALLACE Rep #: [id number] : 1975 49 From: Olamide Mas MD PCP: Dr. 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 [facility] Medical History Arthritis Non-smoker CHF (congestive heart [...] cholesterol 03/ (more content not included)... Normal [facility] L501.4020on 11-09-2024 TROPONIN-I HS 33 pg/mL Normal 3.0-54.0 [facility] Comment on above: Order Comment: 'TROP ' Serial specimen #1, #2 or #3: 1 Result Comment: Lindy loepz Note: New Test Units and Gender Specific Reference Ranges. For more information see Policy Stat Procedure [place] High Sensitivity Troponin (TNIH) and attachments. Performed By: #### L 509.7002 #### [facility] Laboratory [address] [place], [address] Lactic Acidon 11-09-2024 Lactate [Moles/Vol] 2.3 mmol/L Invalid Interpretation Code 0.4-1.9 [facility] Comment on above: Order Comment: Y Result Comment: Crit ical Result(s) Called at: 20:46:06 11/09/2024 by: YVROSE MARTINEZ TO DAPHNEY SANCHEZ. Results read back by same. Performed By: #### L 509.7001 #### [facility] Laboratory [address] [place], [address] Magnesiumon 11-09-2024 Magnesium [Mass/Vol] 1.1 mg/dL Low 1.6-2.6 [facility] Comment on above: Order Comment: Comme nts: May add to ED labsComments: may add to ED labs Performed By: #### L 499.0043 #### [facility] Laboratory [address] [place], [address] Partial Thromboplast Timeon 11-09-2024 aPTT Coag (Bld) [Time] 40.9 s High 24.1-36.2 [facility] Comment on above: Performed By: #### L 509.7001 #### [facility] Laboratory [address] [place], [address] Phosphoruson 11-09-2024 Phosphate [Mass/Vol] 2.3 mg/dL Low 2.5-4.9 [facility] Comment on above: Order Comment: Comme nts: May add to ED labsComments: may add to ED labs Performed By: #### L 499.0043 #### [facility] Laboratory [address] [place], [address] Procalcitoninon 11-09-2024 Procalcitonin 0.27 ng/mL High 0.00-0.09 [facility] Comment on above: Result Comment: A procalcitonin [...] obtained. Performed By: #### L 499.0043 #### [facility] Laboratory [address] [place], [address] Prothrombin Time w/INRon INR Coag (PPP) [Relative time] 1.5 {INR} Normal [facility] Comment on above: Performed By: #### L 509.7001 #### [facility] Laboratory [address] [place], [address] PT Coag (PPP) [Time] 17.9 s High 11.7-14.9 [facility] Comment on above: Performed By: #### L 509.7001 #### [facility] Laboratory [address] [place], [address] Urinalysis, Completeon 11-09 EPI,SQUAMOUS 0-5 SEEN Normal 5-10 [facility] Comment on above: Order Comment: CLEAN CATCH Performed By: #### L 400.0001 #### [facility] Laboratory [address] [place], [address] BACTERIA 0 SEEN Normal None Seen [facility] Comment on above: Order Comment: CLEAN CATCH Performed By: #### L 400.0001 #### [facility] Laboratory [address] [place], [address] Mucus Ql (Urine sed) 0 SEEN Normal [facility] Comment on above: Order Comment: CLEAN CATCH Performed By: #### L 400.0001 #### [facility] Laboratory [address] [place], [address] RBC 0 SEEN Normal 0-5 [facility] Comment on above: Order Comment: CLEAN CATCH Performed By: #### L 400.0001 #### [facility] Laboratory [address] [place], [place], [address] WBC 0 SEEN Normal 0-5 [facility] Comment on above: Order Comment: CLEAN CATCH Performed By: #### L 400.0001 #### [facility] Laboratory [address] [place], [place], [address] Thin prep Papanicolaou smear with manual screeningOrdered By: Eulogio Jiang on 03-28-2024 Thin prep Papanicolaou smear with manual screening 223 mg/dL 74-106 [facility] Comment on above: MANAGEMENT OF PATIEN T CARE PER NURSING PROTOCOL Absolute lymphocyte countOrd ered By: Eulogio Jiang on 03-27-2024 Lymphocytes Auto (Unsp spec) [#/Vol] 2.53 10*3/uL 0.83-4.51 [facility] Automated lymphocyte count a s percentage of total leukocytesOrdered By: Eulogio Jiang on 03-27-2024 Lymphocytes/100 WBC Auto (Unsp spec) 28.7 % 19-41 [facility] Basophil percentageOrdered B y: Eulogio Jiang on 03-27-2024 Basophils/100 WBC (Bld) 1.0 % 0-1 [facility] Chloride [Moles/Vol] 97 mmol/L 98-107 [facility] Eosinophils/100 WBC (Bld) 3.9 % 0-5 [facility] Glucose [Mass/Vol] 242 mg/dL 74-106 [facility] Comment on above: Glucose result great er than or equal to 200 mg/dLsuggests DIABETES MELLITUS per A.D.A. criteria. Hemoglobin (Bld) [Mass/Vol] 11.3 g/dL 12.0-15.0 [facility] Monocytes/100 WBC (Bld) 4.8 % 0-10 [facility] Neutrophils (Bld) [#/Vol] 5.4 10*3/uL 2.0-7.7 [facility] Neutrophils/100 WBC (Bld) 61.1 % 47-70 [facility] Potassium [Moles/Vol] 3.6 mmol/L 3.5-5.1 [facility] Sodium [Moles/Vol] 138 mmol/L 136-145 [facility] WBC (Bld) [#/Vol] 8.8 10*3/uL 4.4-11.0 [facility] Determination of erythrocyte mean corpuscular volume (MCV)Ordered By: Eulogio Jiang on 03-27-2024 MCV (RBC) [Entitic vol] 91.5 fL 81-99 [facility] Erythrocyte distribution wid th ratioOrdered By: Eulogio Jiang on 03-27-2024 Erythrocyte distribution width (RBC) [Ratio] 13.7 % 11.6-14.6 [facility] Erythrocyte distribution wid th standard deviationOrdered By: Eulogio Jiang on 03-27-2024 Erythrocyte distribution width (RBC) [Entitic vol] 45.3 fL 35.1-43.9 [facility] Hematocrit Auto (Bld) [Volum e fraction]Ordered By: Eulogio Jiang on 03-27-2024 Hematocrit (Bld) [Volume fraction] 35.7 % 37-47 [facility] Immature granulocytes/100 WB C Auto (Bld)Ordered By: Eulogio Jiang on 03-27-2024 Immature granulocytes/100 WBC (Bld) 0.500 % 0.0-0.9 [facility] Comment on above: IG% - Immature Granu locytes (promyelocytes, myelocytes and metamyelocytes) > 1% indicates that a LEFT SHIFT is Present. Laboratory - Chemistry and C hemistry - challengeOrdered By: Eulogio iJang on 03-27-2024 CO2 [Moles/Vol] 35.0 mmol/L 21.0-32.0 [facility] Urea nitrogen/Creatinine [Mass ratio] 26.0 mg/mg 10-20 [facility] Laboratory - Hematology and Cell countsOrdered By: Eulogio Jiang on 03-27-2024 MCH (RBC) [Entitic mass] 29.0 pg 27.0-32.0 [facility] MCHC (RBC) [Mass/Vol] 31.7 g/dL 32-36 [facility] Nucleated RBC/100 WBC (Bld) [Ratio] 0 % 0-5 [facility] Platelet mean volume (Bld) [Entitic vol] 10.5 fL 6.2-12.0 [facility] Platelets (Bld) [#/Vol] 226 10*3/uL 150-450 [facility] No Panel InformationOrdered By: Eulogio Jiang on 03-27-2024 Estimated Creatinine Clearance Calc 86.75 ml/min [facility] Estimated GFR (MDRD) Amer 58 mL/min >60 [facility] Comment on above: GFR Calc Estimated GFR (MDRD) Non-Af Amer 48 mL/min >60 [facility] Comment on above: Non- GFR Calc RBC Auto (Bld) [#/Vol]Ordere d By: Eulogio Jiang on 03-27-2024 RBC (Bld) [#/Vol] 3.90 10*6/uL 4.2-5.4 [facility] Serum or plasma calcium yunior urement (mass/volume)Ordered By: Eulogio Jiang on 03-27-2024 Calcium [Mass/Vol] 8.7 mg/dL 8.5-10.1 [facility] Serum or plasma creatinine m easurement (mass/volume)Ordered By: Eulogio Jiang on 03-27-2024 Creatinine [Mass/Vol] 1.27 mg/dL 0.55-1.02 [facility] Comment on above: The validity of the calculated GFR & GFRAA in patients over 70 years has not been determined. Clinical correlation is essential. Serum or plasma urea nitroge n measurement (mass/volume)Ordered By: Eulogio Jiang on 03-27-2024 Urea nitrogen [Mass/Vol] 33 mg/dL 7-18 [facility] Thin prep Papanicolaou smear with manual screeningOrdered By: Eulogio Jiang on 03-27-2024 Thin prep Papanicolaou smear with manual screening 6 5-15 [facility] Basophil percentageOrdered B y: Delmy Solorzano on 03-23-2024 Bilirubin [Mass/Vol] 0.20 mg/dL 0.20-1.00 [facility] Comment on above: For patients on eltr ombopag therapy, use of Dimension [place] TBIL is not recommended. Chloride [Moles/Vol] 98 mmol/L 98-107 [facility] Glucose [Mass/Vol] 251 mg/dL 74-106 [facility] Comment on above: Glucose result great er than or equal to 200 mg/dLsuggests DIABETES MELLITUS per A.D.A. criteria. Potassium [Moles/Vol] 3.7 mmol/L 3.5-5.1 [facility] Protein [Mass/Vol] 7.3 g/dL 6.4-8.2 [facility] Sodium [Moles/Vol] 138 mmol/L 136-145 [facility] Laboratory - Chemistry and C hemistry - challengeOrdered By: Delmy Solorzano on 03-23-2024 Albumin/Globulin [Mass ratio] 0.9 {ratio} 0.9-2.4 [facility] ALP [Catalytic activity/Vol] 71 U/L 45-117 [facility] ALT [Catalytic activity/Vol] 34 U/L 13-56 [facility] CO2 [Moles/Vol] 33.0 mmol/L 21.0-32.0 [facility] Globulin (S) [Mass/Vol] 3.9 g/dL 2.2-4.2 [facility] Urea nitrogen/Creatinine [Mass ratio] 24.1 mg/mg 10-20 [facility] No Panel InformationOrdered By: Delmy Solorzano on 03-23-2024 Estimated GFR (MDRD) Amer 90 mL/min >60 [facility] Comment on above: GFR Calc Estimated GFR (MDRD) Non-Af Amer 74 mL/min >60 [facility] Comment on above: Non- GFR Calc Serum or plasma calcium yunior urement (mass/volume)Ordered By: Delmy Solorzano on 03-23-2024 Calcium [Mass/Vol] 9.4 mg/dL 8.5-10.1 [facility] Serum or plasma creatinine m easurement (mass/volume)Ordered By: Delmy Solorzano on 03-23-2024 Creatinine [Mass/Vol] 0.87 mg/dL 0.55-1.02 [facility] Comment on above: The validity of the calculated GFR & GFRAA in patients over 70 years has not been determined. Clinical correlation is essential. Serum or plasma urea nitroge n measurement (mass/volume)Ordered By: Delmy Solorzano on 03-23-2024 Urea nitrogen [Mass/Vol] 21 mg/dL 7-18 [facility] Thin prep Papanicolaou smear with manual screeningOrdered By: Delmy Solorzano on 03-23-2024 Thin prep Papanicolaou smear with manual screening 3.4 g/dL 3.2-5.0 [facility] Thin prep Papanicolaou smear with manual screening 23 U/L 15-37 [facility] Thin prep Papanicolaou smear with manual screening 7 5-15 [facility] Absolute lymphocyte countOrd ered By: Eulogio Jiang on 01-14-2024 Lymphocytes Auto (Unsp spec) [#/Vol] 3.13 10*3/uL 0.83-4.51 [facility] Automated lymphocyte count a s percentage of total leukocytesOrdered By: Eulogio Jiang on 01-14-2024 Lymphocytes/100 WBC Auto (Unsp spec) 23.8 % 19-41 [facility] Basophil percentageOrdered B y: Eulogio Jiang on 01-14-2024 Basophils/100 WBC (Bld) 0.8 % 0-1 [facility] Chloride [Moles/Vol] 100 mmol/L 98-107 [facility] Eosinophils/100 WBC (Bld) 2.1 % 0-5 [facility] Glucose [Mass/Vol] 232 mg/dL 74-106 [facility] Comment on above: Glucose result great er than or equal to 200 mg/dLsuggests DIABETES MELLITUS per A.D.A. criteria. Hemoglobin (Bld) [Mass/Vol] 11.2 g/dL 12.0-15.0 [facility] Monocytes/100 WBC (Bld) 3.6 % 0-10 [facility] Neutrophils (Bld) [#/Vol] 9.1 10*3/uL 2.0-7.7 [facility] Neutrophils/100 WBC (Bld) 68.8 % 47-70 [facility] Potassium [Moles/Vol] 3.7 mmol/L 3.5-5.1 [facility] Sodium [Moles/Vol] 140 mmol/L 136-145 [facility] WBC (Bld) [#/Vol] 13.2 10*3/uL 4.4-11.0 [facility] Determination of erythrocyte mean corpuscular volume (MCV)Ordered By: Eulogio Jiang on 01-14-2024 MCV (RBC) [Entitic vol] 89.2 fL 81-99 [facility] Erythrocyte distribution wid th ratioOrdered By: Eulogio Jiang on 01-14-2024 Erythrocyte distribution width (RBC) [Ratio] 14.7 % 11.6-14.6 [facility] Erythrocyte distribution wid th standard deviationOrdered By: Eulogio Jiang on 01-14-2024 Erythrocyte distribution width (RBC) [Entitic vol] 47.5 fL 35.1-43.9 [facility] Hematocrit Auto (Bld) [Volum e fraction]Ordered By: Eulogio Jiang on 01-14-2024 Hematocrit (Bld) [Volume fraction] 36.5 % 37-47 [facility] Immature granulocytes/100 WB C Auto (Bld)Ordered By: Eulogio Jiang on 01-14-2024 Immature granulocytes/100 WBC (Bld) 0.900 % 0.0-0.9 [facility] Comment on above: IG% - Immature Granu locytes (promyelocytes, myelocytes and metamyelocytes) > 1% indicates that a LEFT SHIFT is Present. Laboratory - Chemistry and C hemistry - challengeOrdered By: Eulogio Jiang on 01-14-2024 CO2 [Moles/Vol] 33.0 mmol/L 21.0-32.0 [facility] Natriuretic peptide B (Bld) [Mass/Vol] 3.8 pg/mL 0-100 [facility] Urea nitrogen/Creatinine [Mass ratio] 22.8 mg/mg 10-20 [facility] Laboratory - Hematology and Cell countsOrdered By: Eulogio Jiang on 01-14-2024 MCH (RBC) [Entitic mass] 27.4 pg 27.0-32.0 [facility] MCHC (RBC) [Mass/Vol] 30.7 g/dL 32-36 [facility] Nucleated RBC/100 WBC (Bld) [Ratio] 0 % 0-5 [facility] Platelet mean volume (Bld) [Entitic vol] 10.3 fL 6.2-12.0 [facility] Platelets (Bld) [#/Vol] 317 10*3/uL 150-450 [facility] No Panel InformationOrdered By: Eulogio Jiang on 01-14-2024 Estimated Creatinine Clearance Calc 96.92 ml/min [facility] Estimated GFR (MDRD) Amer 66 mL/min >60 [facility] Comment on above: GFR Calc Estimated GFR (MDRD) Non-Af Amer 54 mL/min >60 [facility] Comment on above: Non- GFR Calc RBC Auto (Bld) [#/Vol]Ordere d By: Eulogio Jiang on 01-14-2024 RBC (Bld) [#/Vol] 4.09 10*6/uL 4.2-5.4 [facility] Serum or plasma calcium yunior urement (mass/volume)Ordered By: Eulogio Jiang on 01-14-2024 Calcium [Mass/Vol] 8.8 mg/dL 8.5-10.1 [facility] Serum or plasma creatinine m easurement (mass/volume)Ordered By: Eulogio Jiang on 01-14-2024 Creatinine [Mass/Vol] 1.14 mg/dL 0.55-1.02 [facility] Comment on above: The validity of the calculated GFR & GFRAA in patients over 70 years has not been determined. Clinical correlation is essential. Serum or plasma urea nitroge n measurement (mass/volume)Ordered By: Eulogio Jiang on 01-14-2024 Urea nitrogen [Mass/Vol] 26 mg/dL 7-18 [facility] Thin prep Papanicolaou smear with manual screeningOrdered By: Eulogio Jiang on 01-14-2024 Thin prep Papanicolaou smear with manual screening 7 5-15 [facility] Basophil percentageOrdered B y: Delmy Solorzano on 01-02-2024 Basophil percentage < 1.0 mg/dL 0.55-1.02 [facility] No Panel InformationOrdered By: Delmy Solorzano on 01-02-2024 Bedside Estimated GFR (eGFR) > 60.0000 mL/min >60 [facility] Iron measurement (mass/mass) Ordered By: Delmy Solorzano on 09-25-2023 Iron (Unsp spec) [Mass/Mass] 40 ug/dL 50-170 [facility] Laboratory - Chemistry and C hemistry - challengeOrdered By: Delmy Solorzano on 10-26-2023 Cobalamin (Vitamin B12) [Mass/Vol] 323 pg/mL 211-911 [facility] No Panel InformationOrdered By: [facility] on 09-25-2023 Total Iron Binding Capacity 450 ug/dL 250-450 [facility] Serum or plasma ferritin zhang surement (mass/volume)Ordered By: [facility] on 09-25-2023 Ferritin [Mass/Vol] 41 ng/mL 8-252 [facility] Serum or plasma folate measu rement (mass/volume)Ordered By: [facility] on 09-25-2023 Folate [Mass/Vol] 16.80 ng/mL 3.1-55.4 [facility] Serum or plasma iron saturat ion measurement (mass fraction)Ordered By: [facility] on 09-25-2023 Iron saturation [Mass fraction] 8.9 % 15.0-55.0 [facility] Absolute lymphocyte countOrd ered By: [facility] on 09-18-2023 Lymphocytes Auto (Unsp spec) [#/Vol] 2.67 10*3/uL 0.83-4.51 [facility] Basophil percentageOrdered B y: [facility] on 09-18-2023 Basophils/100 WBC (Bld) 0.7 % 0-1 [facility] Bilirubin [Mass/Vol] 0.30 mg/dL 0.20-1.00 [facility] Comment on above: For patients on eltr ombopag therapy, use of Dimension [place] TBIL is not recommended. Chloride [Moles/Vol] 95 mmol/L 98-107 [facility] Cholesterol [Mass/Vol] 126 mg/dL <200 [facility] Comment on above: <200 mg/dL Desirable 200-240 mg/dL Borderline >240 mg/dL High Risk Eosinophils/100 WBC (Bld) 2.5 % 0-5 [facility] Glucose [Mass/Vol] 269 mg/dL 74-106 [facility] Comment on above: Glucose result great er than or equal to 200 mg/dLsuggests DIABETES MELLITUS per A.D.A. criteria. Neutrophils (Bld) [#/Vol] 8.7 10*3/uL 2.0-7.7 [facility] Neutrophils/100 WBC (Bld) 71.3 % 47-70 [facility] Potassium [Moles/Vol] 4.0 mmol/L 3.5-5.1 [facility] Protein [Mass/Vol] 7.8 g/dL 6.4-8.2 [facility] Sodium [Moles/Vol] 134 mmol/L 136-145 [facility] Triglyceride [Mass/Vol] 189 mg/dL <199 [facility] Comment on above: The drugs N-Acetylcy steine and Metamizole may falsely depress this assay.Serum Triglycerides Reference Interval Normal <150 mg/dL Borderline high 150 - 199 mg/dL High 200 - 499 mg/dL Very High > or = 500 mg/dL WBC (Bld) [#/Vol] 12.2 10*3/uL 4.4-11.0 [facility] Blood erythrocytes count (nu mber/volume)Ordered By: Delmy Solorzano on 09-18-2023 RBC (Bld) [#/Vol] 4.21 10*6/uL 4.2-5.4 [facility] Blood hemoglobin measurement (mass/volume)Ordered By: Delmy Solorzano on 09-18-2023 Hemoglobin (Bld) [Mass/Vol] 11.0 g/dL 12.0-15.0 [facility] Blood lymphocytes/100 leukoc ytesOrdered By: Delmy Solorzano on 09-18-2023 Lymphocytes/100 WBC (Bld) 21.9 % 19-41 [facility] Blood monocytes/100 leukocyt esOrdered By: Delmy Solorzano on 09-18-2023 Monocytes/100 WBC (Bld) 2.8 % 0-10 [facility] Blood platelet mean volumeOr dered By: Delmy Solorzano on 09-18-2023 Platelet mean volume (Bld) [Entitic vol] 10.6 fL 6.2-12.0 [facility] Determination of erythrocyte mean corpuscular volume (MCV)Ordered By: Delmy Solorzano on 09-18-2023 MCV (RBC) [Entitic vol] 87.4 fL 81-99 [facility] Hematocrit Auto (Bld) [Volum e fraction]Ordered By: Delmy Solorzano on 09-18-2023 Hematocrit (Bld) [Volume fraction] 36.8 % 37-47 [facility] Laboratory - Chemistry and C hemistry - challengeOrdered By: Delmy Solorzano on 09-18-2023 ALP [Catalytic activity/Vol] 78 U/L 45-117 [facility] ALT [Catalytic activity/Vol] 27 U/L 13-56 [facility] CO2 [Moles/Vol] 34.0 mmol/L 21.0-32.0 [facility] Globulin (S) [Mass/Vol] 4.5 g/dL 2.2-4.2 [facility] Urea nitrogen/Creatinine [Mass ratio] 17.1 mg/mg 10-20 [facility] Laboratory - Hematology and Cell countsOrdered By: [facility] 09-18-[facility]23 Erythrocyte distribution width (RBC) [Entitic vol] 45.4 fL 35.1-43.9 [facility] Erythrocyte distribution width (RBC) [Ratio] 14.2 % 11.6-14.6 [facility] Immature granulocytes/100 WBC (Bld) 0.800 % 0.0-0.9 [facility] Comment on above: IG% - Immature Granu locytes (promyelocytes, myelocytes and metamyelocytes) > 1% indicates that a LEFT SHIFT is Present. MCH (RBC) [Entitic mass] 26.1 pg 27.0-32.0 [facility] Nucleated RBC/100 WBC (Bld) [Ratio] 0 % 0-5 [facility] MCHC Auto (RBC) [Mass/Vol]Or dered By: Delmy Solorzano on 09-18-2023 MCHC (RBC) [Mass/Vol] 29.9 g/dL 32-36 [facility] No Panel InformationOrdered By: Delmy Solorzano on 09-18-2023 Estimated GFR (MDRD) Amer 97 mL/min >60 [facility] Comment on above: GFR Calc Estimated GFR (MDRD) Non-Af Amer 80 mL/min >60 [facility] Comment on above: Non- GFR Calc Thyroid Stimulating Hormone (TSH) 4.02 uIU/mL 0.358-3.74 [facility] Vitamin D 25-Hydroxy 28.3 ng/mL [facility] Comment on above: Vitamin D 25(OH) Sta tus Range Deficiency <20 ng/mL (50nmol/L) Insufficiency 20 - 30 ng/mL (50 - 75 nmol/L) Sufficiency 30 - 100 ng/mL (75 - 250 nmol/L) Toxicity >100 ng/mL (>250 nmol/L) Platelets bldOrdered By: Mary marcos Ramoske on 09-18-2023 Platelets (Bld) [#/Vol] 325 10*3/uL 150-450 [facility] Serum or plasma albumin yunior urement (mass/volume)Ordered By: Delmy Solorzano on 09-18-2023 Albumin [Mass/Vol] 3.3 g/dL 3.2-5.0 [facility] Serum or plasma albumin/glob ulin mass ratioOrdered By: Delmy Solorzano on 09-18-2023 Albumin/Globulin [Mass ratio] 0.7 {ratio} 0.9-2.4 [facility] Serum or plasma calcium yunior urement (mass/volume)Ordered By: Delmy Solorzano on 09-18-2023 Calcium [Mass/Vol] 9.3 mg/dL 8.5-10.1 [facility] Serum or plasma cholesterol in HDL measurement (mass/volume)Ordered By: Delmy Solorzano on 09-18-2023 Cholesterol in HDL [Mass/Vol] 38 mg/dL >40 [facility] Comment on above: The drugs N-Acetylcy steine and Metamizole may falsely depress this assay. Reference Range HDL <40 mg/dL Low HDL Cholesterol HDL >or= 60 mg/dL High HDL Cholesterol Serum or plasma cholesterol in VLDL measurement (mass/volume)Ordered By: Delmy Solorzano on 09-18-2023 Cholesterol in VLDL [Mass/Vol] 38 mg/dL 5-40 [facility] Serum or plasma creatinine m easurement (mass/volume)Ordered By: Delmy Solorzano on 09-18-2023 Creatinine [Mass/Vol] 0.82 mg/dL 0.55-1.02 [facility] Comment on above: The validity of the calculated GFR & GFRAA in patients over 70 years has not been determined. Clinical correlation is essential. Serum or plasma low density lipoprotein (LDL) cholesterol measurement (mass/volume)Ordered By: Delmy Solorzano on 09-18-2023 Cholesterol in LDL [Mass/Vol] 50 mg/dL 0-130 [facility] Serum or plasma urea nitroge n measurement (mass/volume)Ordered By: Delmy Solorzano on 09-18-2023 Urea nitrogen [Mass/Vol] 14 mg/dL 7-18 [facility] Thin prep Papanicolaou smear with manual screeningOrdered By: [facility] on 09-18-2023 Thin prep Papanicolaou smear with manual screening 16 U/L 15-37 [facility] Thin prep Papanicolaou smear with manual screening 5 5-15 [facility] Whole blood hemoglobin A1c/t otal hemoglobin ratio (mass fraction)Ordered By: Delmy Solorzano on 09-18-2023 HbA1c (Bld) [Mass fraction] 9.6 % 3.8-5.6 [facility] Comment on above: Normal < 5.7 % Predi abetic 5.7 - 6.4 % Diabetic >or= 6.5 % Please note range changes. Absolute lymphocyte countOrd ered By: Liam Wilkes on 07-15-2023 Lymphocytes Auto (Unsp spec) [#/Vol] 2.35 10*3/uL 0.83-4.51 [facility] Basophil percentageOrdered B y: Liam Wilkes on 07-15-2023 Basophils/100 WBC (Bld) 0.8 % 0-1 [facility] Chloride [Moles/Vol] 100 mmol/L 98-107 [facility] Eosinophils/100 WBC (Bld) 2.1 % 0-5 [facility] Glucose [Mass/Vol] 146 mg/dL 74-106 [facility] Comment on above: Fasting Glucose resu lt greater than or equal to 126 mg/dL suggests DIABETES MELLITUS per A.D.A. criteria. Neutrophils (Bld) [#/Vol] 7.4 10*3/uL 2.0-7.7 [facility] Neutrophils/100 WBC (Bld) 67.0 % 47-70 [facility] Potassium [Moles/Vol] 4.3 mmol/L 3.5-5.1 [facility] Sodium [Moles/Vol] 140 mmol/L 136-145 [facility] WBC (Bld) [#/Vol] 11.0 10*3/uL 4.4-11.0 [facility] Blood erythrocytes count (nu mber/volume)Ordered By: Liam Wilkes on 07-15-2023 RBC (Bld) [#/Vol] 3.74 10*6/uL 4.2-5.4 [facility] Blood hemoglobin measurement (mass/volume)Ordered By: Liam Wilkes on 07-15-2023 Hemoglobin (Bld) [Mass/Vol] 9.4 g/dL 12.0-15.0 [facility] Blood lymphocytes/100 leukoc ytesOrdered By: Liam Wilkes on 07-15-2023 Lymphocytes/100 WBC (Bld) 21.4 % 19-41 [facility] Blood monocytes/100 leukocyt esOrdered By: Liam Wilkes on 07-15-2023 Monocytes/100 WBC (Bld) 4.5 % 0-10 [facility] Blood platelet mean volumeOr dered By: Liam Wilkes on 07-15-2023 Platelet mean volume (Bld) [Entitic vol] 9.5 fL 6.2-12.0 [facility] Determination of erythrocyte mean corpuscular volume (MCV)Ordered By: Liam Wilkes on 07-15-2023 MCV (RBC) [Entitic vol] 90.1 fL 81-99 [facility] Glucose Glucometer (dC) [M ass/Vol]Ordered By: Belem Aponte on 07-15-2023 Glucose [Mass/Vol] 167 mg/dL 74-106 [facility] Comment on above: MANAGEMENT OF PATIEN T CARE PER NURSING PROTOCOL Hematocrit Auto (Bld) [Volum e fraction]Ordered By: Liam Wilkes on 07-15-2023 Hematocrit (Bld) [Volume fraction] 33.7 % 37-47 [facility] Laboratory - Chemistry and C hemistry - challengeOrdered By: Liam Wilkes on 07-15-2023 CO2 [Moles/Vol] 36.0 mmol/L 21.0-32.0 [facility] Urea nitrogen/Creatinine [Mass ratio] 21.9 mg/mg 10-20 [facility] Laboratory - Hematology and Cell countsOrdered By: Liam Wilkes on 07-15-2023 Erythrocyte distribution width (RBC) [Entitic vol] 59.6 fL 35.1-43.9 [facility] Erythrocyte distribution width (RBC) [Ratio] 18.6 % 11.6-14.6 [facility] Immature granulocytes/100 WBC (Bld) 4.200 % 0.0-0.9 [facility] Comment on above: IG% - Immature Granu locytes (promyelocytes, myelocytes and metamyelocytes) > 1% indicates that a LEFT SHIFT is Present. MCH (RBC) [Entitic mass] 25.1 pg 27.0-32.0 [facility] Nucleated RBC/100 WBC (Bld) [Ratio] 0.4 % 0-5 [facility] MCHC Auto (RBC) [Mass/Vol]Or dered By: Liam Wilkes on 07-15-2023 MCHC (RBC) [Mass/Vol] 27.9 g/dL 32-36 [facility] Comment on above: Delta: 29.9 on 07/14-3 No Panel InformationOrdered By: Liam Wilkes on 07-15-2023 Estimated Creatinine Clearance Calc 68.75 ml/min [facility] Estimated GFR (MDRD) Amer 85 mL/min >60 [facility] Comment on above: GFR Calc Estimated GFR (MDRD) Non-Af Amer 70 mL/min >60 [facility] Comment on above: Non- GFR Calc Platelets bldOrdered By: Shay Wilkes on 07-15-2023 Platelets (Bld) [#/Vol] 355 10*3/uL 150-450 [facility] Serum or plasma calcium yunior urement (mass/volume)Ordered By: Liam Wilkes on 07-15-2023 Calcium [Mass/Vol] 9.3 mg/dL 8.5-10.1 [facility] Serum or plasma creatinine m easurement (mass/volume)Ordered By: Liam Wilkes on 07-15-2023 Creatinine [Mass/Vol] 0.92 mg/dL 0.55-1.02 [facility] Comment on above: The validity of the calculated GFR & GFRAA in patients over 70 years has not been determined. Clinical correlation is essential. Serum or plasma urea nitroge n measurement (mass/volume)Ordered By: Liam Wilkes on 07-15-2023 Urea nitrogen [Mass/Vol] 20 mg/dL 7-18 [facility] Thin prep Papanicolaou smear with manual screeningOrdered By: Liam Wilkes on 07-15-2023 Thin prep Papanicolaou smear with manual screening 4 5-15 [facility] Absolute lymphocyte countOrd ered By: Irina Quintero on 07-14-2023 Lymphocytes Auto (Unsp spec) [#/Vol] 1.91 10*3/uL 0.83-4.51 [facility] Basophil percentageOrdered B y: Irina Quintero on 07-14-2023 Basophils/100 WBC (Bld) 0.6 % 0-1 [facility] Chloride [Moles/Vol] 101 mmol/L 98-107 [facility] Eosinophils/100 WBC (Bld) 1.8 % 0-5 [facility] Glucose [Mass/Vol] 223 mg/dL 74-106 [facility] Comment on above: Glucose result great er than or equal to 200 mg/dLsuggests DIABETES MELLITUS per A.D.A. criteria. Neutrophils (Bld) [#/Vol] 6.1 10*3/uL 2.0-7.7 [facility] Neutrophils/100 WBC (Bld) 67.8 % 47-70 [facility] Potassium [Moles/Vol] 4.4 mmol/L 3.5-5.1 [facility] Sodium [Moles/Vol] 140 mmol/L 136-145 [facility] WBC (Bld) [#/Vol] 8.9 10*3/uL 4.4-11.0 [facility] Blood erythrocytes count (nu mber/volume)Ordered By: Irina Quintero on 07-14-2023 RBC (Bld) [#/Vol] 3.47 10*6/uL 4.2-5.4 [facility] Blood hemoglobin measurement (mass/volume)Ordered By: Irina Quintero on 07-14-2023 Hemoglobin (Bld) [Mass/Vol] 9.2 g/dL 12.0-15.0 [facility] Blood lymphocytes/100 leukoc ytesOrdered By: Irina Quintero on 07-14-2023 Lymphocytes/100 WBC (Bld) 21.4 % 19-41 [facility] Blood monocytes/100 leukocyt esOrdered By: Irina Quintero on 07-14-2023 Monocytes/100 WBC (Bld) 4.5 % 0-10 [facility] Blood platelet mean volumeOr dered By: Irina Quintero on 07-14-2023 Platelet mean volume (Bld) [Entitic vol] 9.2 fL 6.2-12.0 [facility] Determination of erythrocyte mean corpuscular volume (MCV)Ordered By: Irina Quintero on 07-14-2023 MCV (RBC) [Entitic vol] 88.8 fL 81-99 [facility] Hematocrit Auto (Bld) [Volum e fraction]Ordered By: Irina Quintero on 07-14-2023 Hematocrit (Bld) [Volume fraction] 30.8 % 37-47 [facility] Laboratory - Chemistry and C hemistry - challengeOrdered By: Irina Quintero on 07-14-2023 CO2 [Moles/Vol] 36.0 mmol/L 21.0-32.0 [facility] Natriuretic peptide B (Bld) [Mass/Vol] 40.4 pg/mL 0-100 [facility] Urea nitrogen/Creatinine [Mass ratio] 17.9 mg/mg 10-20 [facility] Laboratory - Hematology and Cell countsOrdered By: Irina Quintero on 07-14-2023 Erythrocyte distribution width (RBC) [Entitic vol] 58.5 fL 35.1-43.9 [facility] Erythrocyte distribution width (RBC) [Ratio] 18.4 % 11.6-14.6 [facility] Immature granulocytes/100 WBC (Bld) 3.900 % 0.0-0.9 [facility] Comment on above: IG% - Immature Granu locytes (promyelocytes, myelocytes and metamyelocytes) > 1% indicates that a LEFT SHIFT is Present. MCH (RBC) [Entitic mass] 26.5 pg 27.0-32.0 [facility] Nucleated RBC/100 WBC (Bld) [Ratio] 0.2 % 0-5 [facility] MCHC Auto (RBC) [Mass/Vol]Or dered By: Irina Quintero on 07-14-2023 MCHC (RBC) [Mass/Vol] 29.9 g/dL 32-36 [facility] No Panel InformationOrdered By: Irina Quintero on 07-14-2023 Troponin I High Sensitivity 17 pg/mL 3.0-54.0 [facility] Comment on above: Please Note: New Laisha t Units and Gender Specific Reference Ranges. For more information see Policy Stat Procedure [place] High Sensitivity Troponin (TNIH) and attachments. Estimated Creatinine Clearance Calc 59.67 ml/min [facility] Estimated GFR (MDRD) Amer 72 mL/min >60 [facility] Comment on above: GFR Calc Estimated GFR (MDRD) Non-Af Amer 59 mL/min >60 [facility] Comment on above: Non- GFR Calc Platelets bldOrdered By: Kely Quintero on 07-14-2023 Platelets (Bld) [#/Vol] 317 10*3/uL 150-450 [facility] Serum or plasma calcium yunior urement (mass/volume)Ordered By: Irina Quintero on 07-14-2023 Calcium [Mass/Vol] 9.0 mg/dL 8.5-10.1 [facility] Serum or plasma creatinine m easurement (mass/volume)Ordered By: Irina Quintero on 07-14-2023 Creatinine [Mass/Vol] 1.06 mg/dL 0.55-1.02 [facility] Comment on above: The validity of the calculated GFR & GFRAA in patients over 70 years has not been determined. Clinical correlation is essential. Serum or plasma urea nitroge n measurement (mass/volume)Ordered By: Irina Quintero on 07-14-2023 Urea nitrogen [Mass/Vol] 19 mg/dL 7-18 [facility] Thin prep Papanicolaou smear with manual screeningOrdered By: Irina Quintero on 07-14-2023 Thin prep Papanicolaou smear with manual screening 3 5-15 [facility] Absolute lymphocyte countOrd ered By: Belem Aponte on 04-25-2023 Lymphocytes Auto (Unsp spec) [#/Vol] 0.92 10*3/uL 0.83-4.51 [facility] Basophil percentageOrdered B y: Belem Aponte on 04-25-2023 Basophil percentage 3.3 mg/dL 2.5-4.9 [facility] Basophils/100 WBC (Bld) 0.3 % 0-1 [facility] Chloride [Moles/Vol] 96 mmol/L 98-107 [facility] Eosinophils/100 WBC (Bld) 0.0 % 0-5 [facility] Glucose [Mass/Vol] 301 mg/dL 74-106 [facility] Comment on above: Glucose result great er than or equal to 200 mg/dLsuggests DIABETES MELLITUS per A.D.A. criteria. Neutrophils (Bld) [#/Vol] 10.3 10*3/uL 2.0-7.7 [facility] Neutrophils/100 WBC (Bld) 89.0 % 47-70 [facility] Potassium [Moles/Vol] 4.3 mmol/L 3.5-5.1 [facility] Sodium [Moles/Vol] 137 mmol/L 136-145 [facility] WBC (Bld) [#/Vol] 11.6 10*3/uL 4.4-11.0 [facility] Blood erythrocytes count (nu mber/volume)Ordered By: Belem Aponte on 04-25-2023 RBC (Bld) [#/Vol] 3.78 10*6/uL 4.2-5.4 [facility] Blood hemoglobin measurement (mass/volume)Ordered By: Belem Aponte on 04-25-2023 Hemoglobin (Bld) [Mass/Vol] 9.5 g/dL 12.0-15.0 [facility] Blood lymphocytes/100 leukoc ytesOrdered By: Belem Aponte on 04-25-2023 Lymphocytes/100 WBC (Bld) 8.0 % 19-41 [facility] Blood monocytes/100 leukocyt esOrdered By: Belem Aponte on 04-25-2023 Monocytes/100 WBC (Bld) 2.2 % 0-10 [facility] Blood platelet mean volumeOr dered By: Belem Aponte on 04-25-2023 Platelet mean volume (Bld) [Entitic vol] 9.4 fL 6.2-12.0 [facility] Determination of erythrocyte mean corpuscular volume (MCV)Ordered By: Belem Aponte on 04-25-2023 MCV (RBC) [Entitic vol] 88.9 fL 81-99 [facility] Glucose Glucometer (BldC) [M ass/Vol]Ordered By: Belem Aponte on 04-25-2023 Glucose [Mass/Vol] 298 mg/dL 74-106 [facility] Comment on above: MANAGEMENT OF PATIEN T CARE PER NURSING PROTOCOL Hematocrit Auto (Bld) [Volum e fraction]Ordered By: Belem Aponte on 04-25-2023 Hematocrit (Bld) [Volume fraction] 33.6 % 37-47 [facility] Laboratory - Chemistry and C hemistry - challengeOrdered By: Belem Aponte on 04-25-2023 CO2 [Moles/Vol] 37.0 mmol/L 21.0-32.0 [facility] Magnesium [Mass/Vol] 2.1 mg/dL 1.6-2.6 [facility] Urea nitrogen/Creatinine [Mass ratio] 32.2 mg/mg 10-20 [facility] Laboratory - Hematology and Cell countsOrdered By: Belem Aponte on 04-25-2023 Erythrocyte distribution width (RBC) [Entitic vol] 53.5 fL 35.1-43.9 [facility] Erythrocyte distribution width (RBC) [Ratio] 16.6 % 11.6-14.6 [facility] Immature granulocytes/100 WBC (Bld) 0.500 % 0.0-0.9 [facility] Comment on above: IG% - Immature Granu locytes (promyelocytes, myelocytes and metamyelocytes) > 1% indicates that a LEFT SHIFT is Present. MCH (RBC) [Entitic mass] 25.1 pg 27.0-32.0 [facility] Nucleated RBC/100 WBC (Bld) [Ratio] 0.2 % 0-5 [facility] MCHC Auto (RBC) [Mass/Vol]Or dered By: Belem Aponte on 04-25-2023 MCHC (RBC) [Mass/Vol] 28.3 g/dL 32-36 [facility] No Panel InformationOrdered By: Belem Aponte on 04-25-2023 Estimated Creatinine Clearance Calc 68.74 ml/min [facility] Estimated GFR (MDRD) Amer 83 mL/min >60 [facility] Comment on above: GFR Calc Estimated GFR (MDRD) Non-Af Amer 69 mL/min >60 [facility] Comment on above: Non- GFR Calc Platelets bldOrdered By: Vivian Aponte on 04-25-2023 Platelets (Bld) [#/Vol] 264 10*3/uL 150-450 [facility] Serum or plasma calcium yunior urement (mass/volume)Ordered By: Belem Aponte on 04-25-2023 Calcium [Mass/Vol] 8.9 mg/dL 8.5-10.1 [facility] Serum or plasma creatinine m easurement (mass/volume)Ordered By: Belem Aponte on 04-25-2023 Creatinine [Mass/Vol] 0.93 mg/dL 0.55-1.02 [facility] Comment on above: The validity of the calculated GFR & GFRAA in patients over 70 years has not been determined. Clinical correlation is essential. Serum or plasma urea nitroge n measurement (mass/volume)Ordered By: Belem Aponte on 04-25-2023 Urea nitrogen [Mass/Vol] 30 mg/dL 7-18 [facility] Thin prep Papanicolaou smear with manual screeningOrdered By: Belem Aponte on 04-25-2023 Thin prep Papanicolaou smear with manual screening 4 5-15 [facility] Bacteria identified Respirat ory culture Nom (Unsp spec)Ordered By: Belem Aponte on 04-24-2023 Respiratory Culture Meth. resistant Staph. aureus [facility] Basophil percentageOrdered B y: Deejay Ornelas on 04-24-2023 Lactate [Moles/Vol] 2.1 mmol/L 0.4-2.0 [facility] Comment on above: Critical Result(s) C alled at: 00:52:49 04/24/2023 by: Mahin LOJA RN (MS3) Results read back by same. Gram stain for investigation of transfusion reactionOrdered By: Belem Aponte on 04-24-2023 Microscopic observation Gram stain Nom (Unsp spec) [facility] Urine Legionella pneumophila antigen detectionOrdered By: Belem Aponte on 04-24-2023 L. pneumophila Ag Ql (U) [facility] Laboratory - Chemistry and C hemistry - challengeOrdered By: Deejay Ornelas on 04-23-2023 Natriuretic peptide B (Bld) [Mass/Vol] 22.8 pg/mL 0-100 [facility] Laboratory - Microbiology an d Antimicrobial susceptibilityOrdered By: Deejay Ornelas on 04-23-2023 Bacteria identified Cx Nom (Bld) No growth in 5 days. [facility] No Panel InformationOrdered By: Deejay Ornelas on 04-23-2023 Troponin I High Sensitivity 24 pg/mL 3.0-54.0 [facility] Comment on above: Please Note: New Laisha t Units and Gender Specific Reference Ranges. For more information see Policy Stat Procedure [place] High Sensitivity Troponin (TNIH) and attachments. Bacteria identified Anaer cx Nom (Unsp spec)Ordered By: Dr. Lange on 03-08-2023 Anaerobic culture Prevotella melaninogenica [facility] Anaerobic culture Anaerobic cocci [facility] No Panel InformationOrdered By: Dr. Kaiser on 03-07-2023 No growth in 5 days. [facility] Bacteria identified Cx Nom ( Wound)Ordered By: Dr. Lange on 03-06-2023 Routine wound culture Proteus mirabilis [facility] Routine wound culture Streptococcus grou p A [facility] Routine wound culture Corynebacterium amycolatum [facility] Routine wound culture Enterobacter cloacae complex [facility] Absolute lymphocyte countOrd ered By: Dr. Neville on 03-05-2023 Lymphocytes Auto (Unsp spec) [#/Vol] 2.12 10*3/uL 0.83-4.51 [facility] Basophil percentageOrdered B y: Dr. Neville on 03-05-2023 Basophil percentage 330 mg/dL 74-106 [facility] Basophil percentage 133 mmol/L 136-145 [facility] Basophil percentage 3.4 mmol/L 3.5-5.1 [facility] Basophil percentage 90 mmol/L 98-107 [facility] Basophils (Bld) [#/Vol] 11.1 10*3/uL 4.4-11.0 [facility] Basophils (Bld) [#/Vol] 8.3 10*3/uL 2.0-7.7 [facility] Basophils/100 WBC (Bld) 74.4 % 47-70 [facility] Basophils/100 WBC (Bld) 0.1 % 0-5 [facility] Basophils/100 WBC (Bld) 0.3 % 0-1 [facility] Blood erythrocytes count (nu mber/volume)Ordered By: Dr. Neville on 03-05-2023 RBC (Bld) [#/Vol] 3.66 10*6/uL 4.2-5.4 [facility] Blood hemoglobin measurement (mass/volume)Ordered By: Dr. Neville on 03-05-2023 Hemoglobin (Bld) [Mass/Vol] 9.4 g/dL 12.0-15.0 [facility] Blood lymphocytes/100 leukoc ytesOrdered By: Dr. Neville on 03-05-2023 Lymphocytes/100 WBC (Bld) 19.1 % 19-41 [facility] Blood monocytes/100 leukocyt esOrdered By: Dr. Neville on 03-05-2023 Monocytes/100 WBC (Bld) 5.6 % 0-10 [facility] Blood platelet mean volumeOr dered By: Dr. Neville on 03-05-2023 Platelet mean volume (Bld) [Entitic vol] 9.8 fL 6.2-12.0 [facility] Culture, urineOrdered By: Dr Susan Box on 03-05-2023 Bacteria identified Cx Nom (U) Culture exhibits no growth. [facility] Determination of erythrocyte mean corpuscular volume (MCV)Ordered By: Dr. Neville on 03-05-2023 MCV (RBC) [Entitic vol] 88.3 fL 81-99 [facility] Glucose Glucometer (BldC) [M ass/Vol]Ordered By: Dr. Neville on 03-05-2023 Glucose [Mass/Vol] 361 mg/dL 74-106 [facility] Hematocrit Auto (Bld) [Volum e fraction]Ordered By: Dr. Neville on 03-05-2023 Hematocrit (Bld) [Volume fraction] 32.3 % 37-47 [facility] MCHC Auto (RBC) [Mass/Vol]Or dered By: Dr. Neville on 03-05-2023 MCHC (RBC) [Mass/Vol] 29.1 g/dL 32-36 [facility] No Panel InformationOrdered By: Dr. Neville on 03-05-2023 25.7 pg 27.0-32.0 [facility] 16.5 % 11.6-14.6 [facility] 53.4 fl 35.1-43.9 [facility] 0.500 % 0.0-0.9 [facility] 0.4 % 0-5 [facility] 70 mL/min >60 [facility] 85 mL/min >60 [facility] 69.49 ml/min [facility] 31.5 RATIO 10-20 [facility] 39.0 mmol/L 21.0-32.0 [facility] Platelets bldOrdered By: Dr. Neville on 03-05-2023 Platelets (Bld) [#/Vol] 266 10*3/uL 150-450 [facility] Serum or plasma calcium yunior urement (mass/volume)Ordered By: Dr. Neville on 03-05-2023 Calcium [Mass/Vol] 9.0 mg/dL 8.5-10.1 [facility] Serum or plasma creatinine m easurement (mass/volume)Ordered By: Dr. Neville on 03-05-2023 Creatinine [Mass/Vol] 0.92 mg/dL 0.55-1.02 [facility] Serum or plasma urea nitroge n measurement (mass/volume)Ordered By: Dr. Neville on 03-05-2023 Urea nitrogen [Mass/Vol] 29 mg/dL 7-18 [facility] Thin prep Papanicolaou smear with manual screeningOrdered By: Dr. Neville on 03-05-2023 Thin prep Papanicolaou smear with manual screening 4 5-15 [facility] Basophil percentageOrdered B y: Dr. Lange on 03-03-2023 Basophil percentage 7.2 g/dL 6.4-8.2 [facility] Basophil percentage 0.30 mg/dL 0.20-1.00 [facility] Gram stain for investigation of transfusion reactionOrdered By: Dr. Lange on 03-03-2023 Microscopic observation Gram stain Nom (Unsp spec) [facility] Laboratory - Microbiology an d Antimicrobial susceptibilityOrdered By: Dr. Box on 03-03-2023 Respiratory pathogens DNA and RNA 12b panel SURESH+probe (Unsp spec) [facility] No Panel InformationOrdered By: Dr. Lange on 03-03-2023 4.6 g/dL 2.2-4.2 [facility] 60 U/L 45-117 [facility] 20 U/L 13-56 [facility] 22 pg/mL 3.0-54.0 [facility] Serum or plasma albumin yunior urement (mass/volume)Ordered By: Dr. Lange on 03-03-2023 Albumin [Mass/Vol] 2.6 g/dL 3.2-5.0 [facility] Serum or plasma albumin/glob ulin mass ratioOrdered By: Dr. Lange on 03-03-2023 Albumin/Globulin [Mass ratio] 0.6 {ratio} 0.9-2.4 [facility] Thin prep Papanicolaou smear with manual screeningOrdered By: Dr. Lange on 03-03-2023 Thin prep Papanicolaou smear with manual screening 15 U/L 15-37 [facility] Vancomycin troughOrdered By: Dr. Lange on 03-03-2023 Vancomycin trough [Mass/Vol] 17.8 ug/mL 5.0-15.0 [facility] Assessment of wrist artery p atency prior to arterial punctureOrdered By: Dr. Lange on 03-02-2023 Arterial patency Wrist artery --pre arterial puncture Positive [facility] Base excessOrdered By: Dr. Alberto french on 03-02-2023 Base excess Calc (BldV) [Moles/Vol] 8 mmol/L -2-2 [facility] Basophil percentageOrdered B y: Dr. Lange on 03-02-2023 Basophil percentage 33.8 mmol/L 22-26 [facility] Basophils/100 WBC (Bld) 89 % 95-99 [facility] Basophil percentageOrdered B y: Dr. Kaiser on 03-02-2023 Basophil percentage 0.9 mmol/L 0.4-2.0 [facility] Basophil percentageOrdered B y: Dr. Box on 03-02-2023 Basophil percentage 0 SEEN /hpf 0-5 [facility] Bilirubin Test strip Ql (U)O rdered By: Dr. Box on 03-02-2023 Bilirubin Ql (U) Negative Negative [facility] CO2 (BldA) [Partial pressure ]Ordered By: Dr. Lange on 03-02-2023 CO2 (Bld) [Partial pressure] 64.4 mm[Hg] 35-45 [facility] COVID-19 virus antigen assay Ordered By: Dr. Box on 03-02-2023 SARS-CoV-2 (COVID-19) Ag IA.rapid Ql (Resp) Negative Not Detect [facility] HCO3 (BldA) [Moles/Vol]Order ed By: Dr. Kaiser on 03-02-2023 HCO3 (Bld) [Moles/Vol] 32 mmol/L 22-26 [facility] Ketones Test strip Ql (U)Ord ered By: Dr. Box on 03-02-2023 Ketones Ql (U) Negative Negative [facility] Mucus LM Ql (Urine sed)Order ed By: Dr. Box on 03-02-2023 Mucus Ql (Urine sed) 0 SEEN /hpf [facility] Nitrite Test strip Ql (U)Ord ered By: Dr. Box on 03-02-2023 Nitrite Ql (U) Negative Negative [facility] No Panel InformationOrdered By: Dr. Lange on 03-02-2023 ART [facility] L Radial [facility] BiPAP [facility] 22 [facility] 50 [facility] 8 [facility] 36 mmol/L [facility] BiLevel [facility] jopperi [facility] Yes [facility] No Panel InformationOrdered By: Dr. Kaiser on 03-02-2023 67.1 mmHg 41-51 [facility] 6 mmol/L -1.0-3.5 [facility] 87 % 50-70 [facility] 34 mmol/L 23-33 [facility] 68.4 pg/mL 0-100 [facility] Oxygen (BldA) [Partial press ure]Ordered By: Dr. Lange on 03-02-2023 Oxygen (Bld) [Partial pressure] 64 mmHG 75-100 [facility] PO2 venousOrdered By: Dr. Celso morrow on 03-02-2023 Oxygen (BldV) [Partial pressure] 60 mm[Hg] 25-40 [facility] Protein Test strip Ql (U)Ord ered By: Dr. Box on 03-02-2023 Protein Ql (U) 30 mg/dl Negative [facility] Squamous epithelial cells de tection in urine sediment by light microscopyOrdered By: Dr. Box on 03-02-2023 Epithelial cells.squamous LM Ql (Urine sed) 0 SEEN /hpf 5-10 [facility] Urine blood detectionOrdered By: Dr. Box on 03-02-2023 RBC Ql (U) 10 /ul Negative [facility] RBC Ql (U) 0 SEEN /hpf 0-5 [facility] Urine clarityOrdered By: Dr. Box on 03-02-2023 Clarity (U) Clear Clear [facility] Urine color determinationOrd ered By: Dr. Box on 03-02-2023 Color (U) Yellow Yellow [facility] Urine glucose detectionOrder ed By: Dr. Box on 03-02-2023 Glucose Ql (U) 1000 mg/dl Normal [facility] Urine leukocyte esterase det ection by dipstickOrdered By: Dr. Box on 03-02-2023 Leukocyte esterase Test strip Ql (U) Negative Negative [facility] Urine pHOrdered By: Dr. Katharine rodriguez on 03-02-2023 pH (U) 6.0 [pH] 5.0 - 8.0 [facility] Urine sediment bacteria coun t by microscopy (number/high power field)Ordered By: Dr. Box on 03-02-2023 Bacteria LM.HPF (Urine sed) [#/Area] 0 /[HPF] None Seen [facility] Urine specific gravity measu rementOrdered By: Dr. Box on 03-02-2023 Specific gravity (U) [Rel density] 1.015 1.002-1.030 [facility] Urobilinogen Auto test strip Ql (U)Ordered By: Dr. Box on 03-02-2023 Urobilinogen Ql (U) Normal mg/dl Normal [facility] pH measurementOrdered By: Dr Susan Lange on 03-02-2023 pH (Unsp spec) 7.33 [pH] 7.35-7.45 [facility] pH measurementOrdered By: Dr Susan Kaiser on 03-02-2023 pH (Unsp spec) 7.29 [pH] 7.32-7.42 [facility] No Panel InformationOrdered By: Dr. Ornelas on 02-24-2023 No growth in 5 days. [facility] Basic metabolic 2000 panelon 02-20-2023 Anion gap [Moles/Vol] 8 mmol/L Low 9-18 [facility] Comment on above: Order Comment: Speci men Type: BLOOD SPECIMENOrdering Facility: [facility] Address: [address] [place] [address] Performed By: #### 2 4321-2 ####[facility] LABORATORYCLIA [id number] [place] [address] [place] Calcium [Mass/Vol] 8.9 mg/dL Normal 8.5-10.2 [facility] Comment on above: Order Comment: Speci men Type: BLOOD SPECIMENOrdering Facility: [facility] Address: [address] [place] [address] Performed By: #### 2 4321-2 ####[facility] LABORATORYCLIA [id number] [place] [address] [place] Chloride [Moles/Vol] 99 mmol/L Normal 97-105 [facility] Comment on above: Order Comment: Speci men Type: BLOOD SPECIMENOrdering Facility: [facility] Address: [address] [place] [address] Performed By: #### 2 4321-2 ####[facility] LABORATORYCLIA [id number] [place] [address] [place] CO2 [Moles/Vol] 30 mmol/L Normal 22-30 [facility] Comment on above: Order Comment: Speci men Type: BLOOD SPECIMENOrdering Facility: [facility] Address: [address] [place] [address] Performed By: #### 2 4321-2 ####[facility] LABORATORYCLIA [id number] [address] STATES OF [facility] Creatinine [Mass/Vol] 0.59 mg/dL Normal 0.58-0.96 [facility] Comment on above: Order Comment: Roberto dahiana Type: BLOOD SPECIMENOrdering Facility: [facility] Address: [address] [place] [address] Performed By: #### 2 4321-2 ####[facility] LABORATORYCLIA [id number] [address] ESTIMATED GLOMERULAR FILTRATION RATE 113 mL/min/1.73m??? Normal >=60 [facility] Comment on above: Order Comment: Roberto talbot Type: BLOOD SPECIMENOrdering Facility: [facility] Address: [address] [place] [address] Result Comment: Gayle mated Glomerular Filtration Rate [...] actual GFR. Performed By: #### 2 4321-2 ####[facility] LABORATORYCLIA [id number] [address] Glucose [Mass/Vol] 127 mg/dL High 74-99 [facility] Comment on above: Order Comment: Roberto dahiana Type: BLOOD SPECIMENOrdering Facility: [facility] Address: [address] [place] [address] Result Comment: The [place] [employer] [...] 2016.39(Suppl 1). Performed By: #### 2 4321-2 ####[facility] LABORATORYCLIA [id number] [address] STATES OF [facility] Potassium [Moles/Vol] 4.3 mmol/L Normal 3.7-5.1 [facility] Comment on above: Order Comment: Speci men Type: BLOOD SPECIMENOrdering Facility: [facility] Address: [address] [address] Performed By: #### 2 4321-2 ####[facility] LABORATORYCLIA [id number] [address] Sodium [Moles/Vol] 137 mmol/L Normal 136-144 [facility] Comment on above: Order Comment: Speci men Type: BLOOD SPECIMENOrdering Facility: [facility] Address: [address] [address] Performed By: #### 2 4321-2 ####[facility]ORATORYCLIA [id number] [address] Urea nitrogen [Mass/Vol] 8 mg/dL Normal 7-21 [facility] Comment on above: Order Comment: Speci men Type: BLOOD SPECIMENOrdering Facility: [facility] Address: [address] [address] Performed By: #### 2 4321-2 ####[facility] LABORATORYCLIA [id number] [address] [place] CASE MANAGEMon 02-20-2023 CASE MANAGEM Normal [facility] CBC panel Auto (Bld)on 02-20 Erythrocyte distribution width (RBC) [Ratio] 16.0 % High 11.5-15.0 [facility] Comment on above: Order Comment: Speci men Type: BLOOD SPECIMENOrdering Facility: [facility] Address: [address] [address] Performed By: #### 5 8410-2 ####[facility] LABORATORYCLIA [id number] [address] Hematocrit (Bld) [Volume fraction] 31.3 % Low 36.0-46.0 [facility] Comment on above: Order Comment: Speci men Type: BLOOD SPECIMENOrdering Facility: [facility] Address: [address] [place] [address] Performed By: #### 5 8410-2 ####[facility] [place] LABORATORYCLIA [id number] [address] OF [facility] Hemoglobin (Bld) [Mass/Vol] 8.8 g/dL Low 11.5-15.5 [facility] Comment on above: Order Comment: Speci men Type: BLOOD SPECIMENOrdering Facility: [facility] Address: [address] [place] [address] Performed By: #### 5 8410-2 ####[facility] [place] LABORATORYCLIA [id number] [address] MCH (RBC) [Entitic mass] 25.8 pg Low 26.0-34.0 [facility] Comment on above: Order Comment: Speci men Type: BLOOD SPECIMENOrdering Facility: [facility] Address: [address] [place] [address] Performed By: #### 5 8410-2 ####[facility] [place] LABORATORYCLIA [id number] [address] MCHC (RBC) [Mass/Vol] 28.1 g/dL Low 30.5-36.0 [facility] Comment on above: Order Comment: Speci men Type: BLOOD SPECIMENOrdering Facility: [facility] Address: [address] [place] [address] Performed By: #### 5 8410-2 ####[facility] [place] LABORATORYCLIA [id number] [address] [place] MCV (RBC) [Entitic vol] 91.8 fL Normal 80.0-100.0 [facility] Comment on above: Order Comment: Speci men Type: BLOOD SPECIMENOrdering Facility: [facility] Address: [address] [address] Performed By: #### 5 8410-2 ####[facility] [place] LABORATORYCLIA [id number] [address] [place] Nucleated RBC (Bld) [#/Vol] 0.02 10*3/uL High <0.01 [facility] Comment on above: Order Comment: Speci men Type: BLOOD SPECIMENOrdering Facility: [facility] Address: [address] [place] [address] Performed By: #### 5 8410-2 ####[facility] [place] LABORATORYCLIA [id number] [address] [place] Platelet mean volume (Bld) [Entitic vol] 9.8 fL Normal 9.0-12.7 [facility] Comment on above: Order Comment: Speci men Type: BLOOD SPECIMENOrdering Facility: [facility] Address: [address] [address] Performed By: #### 5 8410-2 ####[facility] [place] LABORATORYCLIA [id number] [address] [place] Platelets (Bld) [#/Vol] 264 10*3/uL Normal 150-400 [facility] Comment on above: Order Comment: Speci men Type: BLOOD SPECIMENOrdering Facility: [facility] Address: [address] [address] Performed By: #### 5 8410-2 ####[facility] [place] LABORATORYCLIA [id number] [place] [address] [place] RBC (Bld) [#/Vol] 3.41 10*6/uL Low 3.90-5.20 [facility] Comment on above: Order Comment: Speci men Type: BLOOD SPECIMENOrdering Facility: [facility] Address: [address] [place] [address] Performed By: #### 5 8410-2 ####[facility] [place] LABORATORYCLIA [id number] [address] [place] WBC (Bld) [#/Vol] 9.61 10*3/uL Normal 3.70-11.00 [facility] Comment on above: Order Comment: Speci men Type: BLOOD SPECIMENOrdering Facility: [facility] Address: [address] [place] [address] Performed By: #### 5 8410-2 ####[facility] [place] LABORATORYCLIA [id number] [address] [place] CNDSon 02-20-2023 CNDS Normal [facility] CONSULT PROGon 02-20-2023 CONSULT PROG Normal [facility] CONSULT PROG Normal [facility] CONSULT PROG Normal [facility] aPTT PPPon 02-20-2023 aPTT Coag (PPP) [Time] 45.5 s High 23.0-32.4 [facility] Comment on above: Order Comment: Speci men Type: BLOOD SPECIMENOrdering Facility: [facility] Address: [address] [place] [address] Performed By: #### 1 4979-9 ####[facility] [place] LABORATORYCLIA [id number] [address] aPTT Coag (PPP) [Time] 39.7 s High 23.0-32.4 [facility] Comment on above: Order Comment: Speci men Type: BLOOD SPECIMENOrdering Facility: [facility] Address: [address] [place] [address] Performed By: #### 1 4979-9 ####[facility] [place] LABORATORYCLIA [id number] [place] [address] [place] ALLIED HEALTHon 02-19-2023 ALLIED HEALTH Normal [facility] Basic metabolic 2000 panelon 02-19-2023 Anion gap [Moles/Vol] 7 mmol/L Low 9-18 [facility] Comment on above: Order Comment: Speci men Type: BLOOD SPECIMENOrdering Facility: [facility] Address: [address] [place] [address] Performed By: #### 2 4321-2 ####[facility] [place] LABORATORYCLIA [id number] [address] [place] Calcium [Mass/Vol] 8.9 mg/dL Normal 8.5-10.2 [facility] Comment on above: Order Comment: Speci men Type: BLOOD SPECIMENOrdering Facility: [facility] Address: [address] [place] [address] Performed By: #### 2 4321-2 ####[facility] [place] LABORATORYCLIA [id number] [address] [place] Chloride [Moles/Vol] 103 mmol/L Normal 97-105 [facility] Comment on above: Order Comment: Speci men Type: BLOOD SPECIMENOrdering Facility: [facility] Address: [address] [place] [address] Performed By: #### 2 4321-2 ####[facility] [place] LABORATORYCLIA [id number] [address] OF [facility] CO2 [Moles/Vol] 30 mmol/L Normal 22-30 [facility] Comment on above: Order Comment: Speci men Type: BLOOD SPECIMENOrdering Facility: [facility] Address: [address] [place] [address] Performed By: #### 2 4321-2 ####[facility] [place] LABORATORYCLIA [id number] [address] [place] Creatinine [Mass/Vol] 0.65 mg/dL Normal 0.58-0.96 [facility] Comment on above: Order Comment: Speci men Type: BLOOD SPECIMENOrdering Facility: [facility] Address: [address] [place] [address] Performed By: #### 2 4321-2 ####[facility] [place] LABORATORYCLIA [id number] [address] ESTIMATED GLOMERULAR FILTRATION RATE 111 mL/min/1.73m??? Normal >=60 [facility] Comment on above: Order Comment: Speci men Type: BLOOD SPECIMENOrdering Facility: [facility] Address: [address] [phone] Result Comment: Gayle mated Glomerular Filtration Rate [...] actual GFR. Performed By: #### 2 4321-2 ####[facility] [place] LABORATORYCLIA [id number] [place] [address] [place] Glucose [Mass/Vol] 154 mg/dL High 74-99 [facility] Comment on above: Order Comment: Roberto talbot Type: BLOOD SPECIMENOrdering Facility: [facility] Address: [address] [place] [address] Result Comment: The [place] [employer] [...] 2016.39(Suppl 1). Performed By: #### 2 4321-2 ####[facility] [place] LABORATORYCLIA [id number] [place] [address] [place] Potassium [Moles/Vol] 4.5 mmol/L Normal 3.7-5.1 [facility] Comment on above: Order Comment: Roberto talbot Type: BLOOD SPECIMENOrdering Facility: [facility] Address: [address] [place], [place] [phone] Performed By: #### 2 4321-2 ####[facility] [place] LABORATORYCLIA [id number] [address] [place] Sodium [Moles/Vol] 140 mmol/L Normal 136-144 [facility] Comment on above: Order Comment: Speci men Type: BLOOD SPECIMENOrdering Facility: [facility] Address: [address] [place] [address] Performed By: #### 2 4321-2 ####[facility] [place] LABORATORYCLIA [id number] [place] [address] [place] Urea nitrogen [Mass/Vol] 11 mg/dL Normal 7-21 [facility] Comment on above: Order Comment: Speci men Type: BLOOD SPECIMENOrdering Facility: [facility] Address: [address] [place] [address] Performed By: #### 2 4321-2 ####[facility] [place] LABORATORYCLIA [id number] [address] [place] CASE MGT INIT ASSESon 2022 CASE MGT INIT ASSES Normal [facility] CBC panel Auto (Bld)on 02-19 Erythrocyte distribution width (RBC) [Ratio] 16.4 % High 11.5-15.0 [facility] Comment on above: Order Comment: Speci men Type: BLOOD SPECIMENOrdering Facility: [facility] Address: [address] [place] [address] Performed By: #### 5 8410-2 ####[facility] [place] LABORATORYCLIA [id number] [place] [address] [place] Hematocrit (Bld) [Volume fraction] 32.1 % Low 36.0-46.0 [facility] Comment on above: Order Comment: Speci men Type: BLOOD SPECIMENOrdering Facility: [facility] Address: [address] [place] [address] Performed By: #### 5 8410-2 ####[facility] [place] LABORATORYCLIA [id number] [place] [address] [place] Hemoglobin (Bld) [Mass/Vol] 9.3 g/dL Low 11.5-15.5 [facility] Comment on above: Order Comment: Speci men Type: BLOOD SPECIMENOrdering Facility: [facility] Address: [address] [address] Performed By: #### 5 8410-2 ####[facility] [place] LABORATORYCLIA [id number] [address] MCH (RBC) [Entitic mass] 26.6 pg Normal 26.0-34.0 [facility] Comment on above: Order Comment: Speci men Type: BLOOD SPECIMENOrdering Facility: [facility] Address: [address] [address] Performed By: #### 5 8410-2 ####[facility] [place] LABORATORYCLIA [id number] [address] MCHC (RBC) [Mass/Vol] 29.0 g/dL Low 30.5-36.0 [facility] Comment on above: Order Comment: Speci men Type: BLOOD SPECIMENOrdering Facility: [facility] Address: [address] [place] [address] Performed By: #### 5 8410-2 ####[facility] [place] LABORATORYCLIA [id number] [address] MCV (RBC) [Entitic vol] 92.0 fL Normal 80.0-100.0 [facility] Comment on above: Order Comment: Speci men Type: BLOOD SPECIMENOrdering Facility: [facility] Address: [address] [address] Performed By: #### 5 8410-2 ####[facility] [place] LABORATORYCLIA [id number] [address] Nucleated RBC (Bld) [#/Vol] 10*3/uL Normal <0.01 [facility] Comment on above: Order Comment: Speci men Type: BLOOD SPECIMENOrdering Facility: [facility] Address: [address] [place] [address] Performed By: #### 5 8410-2 ####[facility] [place] LABORATORYCLIA [id number] [address] [place] Platelet mean volume (Bld) [Entitic vol] 9.8 fL Normal 9.0-12.7 [facility] Comment on above: Order Comment: Speci men Type: BLOOD SPECIMENOrdering Facility: [facility] Address: [address] [place] [address] Performed By: #### 5 8410-2 ####[facility] [place] LABORATORYCLIA [id number] [place] [address] [place] Platelets (Bld) [#/Vol] 282 10*3/uL Normal 150-400 [facility] Comment on above: Order Comment: Speci men Type: BLOOD SPECIMENOrdering Facility: [facility] Address: [address] [place] [address] Performed By: #### 5 8410-2 ####[facility] [place] LABORATORYCLIA [id number] [address] [place] RBC (Bld) [#/Vol] 3.49 10*6/uL Low 3.90-5.20 [facility] Comment on above: Order Comment: Speci men Type: BLOOD SPECIMENOrdering Facility: [facility] Address: [address] [place] [address] Performed By: #### 5 8410-2 ####[facility] [place] LABORATORYCLIA [id number] [address] [place] WBC (Bld) [#/Vol] 11.20 10*3/uL High 3.70-11.00 [facility] Comment on above: Order Comment: Speci men Type: BLOOD SPECIMENOrdering Facility: [facility] Address: [address] [place] [address] Performed By: #### 5 8410-2 ####[facility] [place] LABORATORYCLIA [id number] [address] Erythrocyte distribution width (RBC) [Ratio] 16.4 % High 11.5-15.0 [facility] Comment on above: Order Comment: Speci men Type: BLOOD SPECIMENOrdering Facility: [facility] Address: [address] [address] Performed By: #### 5 8410-2 ####[facility] [place] LABORATORYCLIA [id number] [address] Hematocrit (Bld) [Volume fraction] 33.4 % Low 36.0-46.0 [facility] Comment on above: Order Comment: Speci men Type: BLOOD SPECIMENOrdering Facility: [facility] Address: [address] [place] [address] Performed By: #### 5 8410-2 ####[facility] [place] LABORATORYCLIA [id number] [address] Hemoglobin (Bld) [Mass/Vol] 9.3 g/dL Low 11.5-15.5 [facility] Comment on above: Order Comment: Speci men Type: BLOOD SPECIMENOrdering Facility: [facility] Address: [address] [place] [address] Performed By: #### 5 8410-2 ####[facility] [place] LABORATORYCLIA [id number] [address] MCH (RBC) [Entitic mass] 25.9 pg Low 26.0-34.0 [facility] Comment on above: Order Comment: Speci men Type: BLOOD SPECIMENOrdering Facility: [facility] Address: [address] [place] [address] Performed By: #### 5 8410-2 ####[facility] [place] LABORATORYCLIA [id number] [address] [place] MCHC (RBC) [Mass/Vol] 27.8 g/dL Low 30.5-36.0 [facility] Comment on above: Order Comment: Speci men Type: BLOOD SPECIMENOrdering Facility: [facility] Address: [address] [place] [address] Performed By: #### 5 8410-2 ####[facility] [place] LABORATORYCLIA [id number] [address] MCV (RBC) [Entitic vol] 93.0 fL Normal 80.0-100.0 [facility] Comment on above: Order Comment: Speci men Type: BLOOD SPECIMENOrdering Facility: [facility] Address: [address] [address] Performed By: #### 5 8410-2 ####[facility] [place] LABORATORYCLIA [id number] [address] [place] Nucleated RBC (Bld) [#/Vol] 10*3/uL Normal <0.01 [facility] Comment on above: Order Comment: Speci men Type: BLOOD SPECIMENOrdering Facility: [facility] Address: [address] [address] Performed By: #### 5 8410-2 ####[facility] [place] LABORATORYCLIA [id number] [address] [place] Platelet mean volume (Bld) [Entitic vol] 9.8 fL Normal 9.0-12.7 [facility] Comment on above: Order Comment: Speci men Type: BLOOD SPECIMENOrdering Facility: [facility] Address: [address] [address] Performed By: #### 5 8410-2 ####[facility] [place] LABORATORYCLIA [id number] [address] [place] Platelets (Bld) [#/Vol] 292 10*3/uL Normal 150-400 [facility] Comment on above: Order Comment: Speci men Type: BLOOD SPECIMENOrdering Facility: [facility] Address: [address] [address] Performed By: #### 5 8410-2 ####[facility] [place] LABORATORYCLIA [id number] [address] [place] RBC (Bld) [#/Vol] 3.59 10*6/uL Low 3.90-5.20 [facility] Comment on above: Order Comment: Speci men Type: BLOOD SPECIMENOrdering Facility: [facility] Address: [address] [address] Performed By: #### 5 8410-2 ####[facility] [place] LABORATORYCLIA [id number] [place] [address] [facility] WBC (Bld) [#/Vol] 11.49 10*3/uL High 3.70-11.00 [facility] Comment on above: Order Comment: Speci men Type: BLOOD SPECIMENOrdering Facility: [facility] Address: [address] [place] [address] [address] [place] [id number] Performed By: #### 5 8410-2 ####[facility] [place] LABORATORYCLIA [id number] [place] [address] [facility] CONSULTon 02-19-2023 CONSULT Normal [facility] CONSULT PROGon 02-19-2023 CONSULT PROG Normal [facility] Comprehensive metabolic 2000 panelon 02-19-2023 Albumin [Mass/Vol] 3.4 g/dL Low 3.9 - 4.9 g/dL [facility] ALP [Catalytic activity/Vol] 64 U/L 34 - 123 U/L [facility] ALT [Catalytic activity/Vol] 12 U/L 7 - 38 U/L [facility] Anion gap [Moles/Vol] 7 mmol/L Low 9 - 18 mmol/L [facility] AST [Catalytic activity/Vol] 12 U/L Low 13 - 35 U/L [facility] Bilirubin [Mass/Vol] 0.2 mg/dL 0.2 - 1.3 mg/dL [facility] Calcium [Mass/Vol] 8.8 mg/dL 8.5 - 10. 2 mg/dL [facility] Chloride [Moles/Vol] 100 mmol/L 97 - 105 mmol/L [facility] CO2 [Moles/Vol] 29 mmol/L 22 - 30 mmol/L [facility] Creatinine [Mass/Vol] 0.76 mg/dL 0.58 - 0.96 mg/dL [facility] Estimated Glomerular Filtration Rate 99 mL/min/1.73m >=60 mL/min/1.73m [facility] Glucose [Mass/Vol] 153 mg/dL High 74 - 99 mg/dL [facility] Potassium [Moles/Vol] 5.0 mmol/L 3.7 - 5.1 mmol/L [facility] Protein [Mass/Vol] 6.7 g/dL 6.3 - 8.0 g/dL [facility] Sodium [Moles/Vol] 136 mmol/L 136 - 144 mmol/L [facility] Urea nitrogen [Mass/Vol] 16 mg/dL 7 - 21 mg/d L [facility] ED NOTEon 02-19-2023 ED NOTE HNO ID: [id number] Author: Anita Jason RN Service: ? Author Type: Registered Nurse Type: ED Notes Filed: 02/19/2023 12:25 AM Note Text: Bed: 12-ED Expected date: Expected time: Means of arrival: Comments: Ronal transfer Normal [facility] ED PROV NOTEon 02-19-2023 ED PROV NOTE Normal [facility] ED PROV NOTE Normal [facility] HISTORY PHYSICALon HISTORY PHYSICAL Normal [facility] LIPID PANEL, NONFASTINGon Cholesterol [Mass/Vol] 148 mg/dL <200 mg/dL [facility] HDL Cholesterol, Nonfasting 37 mg/dL Low >39 mg/dL [facility] LDL Cholesterol, Nonfasting 87 mg/dL <100 mg/dL [facility] LDL/HDL Ratio, Nonfasting 2.35 mg/dL <2.54 mg/dL [facility] Non HDL Cholesterol, Nonfasting 111 mg/dL <130 mg/dL [facility] Total Chol/HDL Ratio, Nonfasting 4.00 mg/dL <5.10 mg/dL [facility] Triglycerides, Nonfasting 122 mg/dL <150 mg/dL [facility] VLDL Cholesterol, Nonfasting 24 mg/dL <30 mg/dL [facility] NURSING PROGon 02-19-2023 NURSING PROG Normal [facility] PT panel Coag (PPP)on 2022 INR Coag (PPP) [Relative time] 1.1 {INR} Normal 0.9-1.3 [facility] Comment on above: Order Comment: Speci men Type: BLOOD SPECIMENOrdering Facility: [facility] Address: [facility] [place] [address] Result Comment: Erika min K Antagonist (VKA) [...] of 3).Gela JUNIOR, et al. Chest 2012, 141:7S-47SNishmehnaz RA, et al. JAC 2017, 70: 252-289 Performed By: #### 3 4528-0, 91193-6 ####[facility] LABORATORYCLIA [id number] [address] STATES OF [facility] PT Coag (PPP) [Time] 11.4 s Normal 9.7-13.0 [facility] Comment on above: Order Comment: Speci men Type: BLOOD SPECIMENOrdering Facility: [facility] Address: [address] [place] [address] Performed By: #### 3 4528-0, 93546-8 ####[facility] LABORATORYCLIA [id number] [address] STATES [facility] URINALYSIS, REFLEX MICROSCOP ICon 02-19-2023 Bacteria LM.HPF (Urine sed) [#/Area] Few Abnormal None Seen [facility] Comment on above: Order Comment: Speci men Type: URINE SPECIMENOrdering Facility: [facility] Address: [address] [address] Performed By: #### L [id number] ####[facility] LABORATORYCLIA [id number] [address] STATES [facility] Bilirubin Ql (U) Negative Normal Negative [facility] Comment on above: Order Comment: Speci men Type: URINE SPECIMENOrdering Facility: [facility] Address: [address] [address] Performed By: #### L [id number] ####[facility] LABORATORYCLIA [id number] [address] [place] Clarity (Unsp spec) Clear Normal Clear [facility] Comment on above: Order Comment: Speci men Type: URINE SPECIMENOrdering Facility: [facility] Address: [address] [place] [address] Performed By: #### L [id number] ####[facility]ORATORYCLIA [id number] [address] [place] Color (U) Light Yellow Normal yellow [facility] Comment on above: Order Comment: Speci men Type: URINE SPECIMENOrdering Facility: [facility] Address: [address] [place] [address] Performed By: #### L [id number] ####[facility] [place] [facility]ORATORYCLIA [id number] [address] [place] Glucose Test strip (U) [Mass/Vol] 4+ Abnormal Trace, Negative [facility] Comment on above: Order Comment: Speci men Type: URINE SPECIMENOrdering Facility: [facility] Address: [address] [place] [address] Performed By: #### L [id number] ####[facility] [facility]ORATORYCLIA [id number] [place] [address] [place] Hemoglobin Ql (U) 2+ Abnormal Negative, Trace [facility] Comment on above: Order Comment: Speci men Type: URINE SPECIMENOrdering Facility: [facility] Address: [address] [place] [address] Performed By: #### L [id number] ####[facility] [facility]ORATORYCLIA [id number] [address] [place] Ketones Ql (U) Negative Normal Negative, Trace [facility] Comment on above: Order Comment: Speci men Type: URINE SPECIMENOrdering Facility: [facility] Address: [address] [place] [address] Performed By: #### L [id number] ####[facility] LABORATORYCLIA [id number] [address] Leukocyte esterase Test strip Ql (U) 500 Robert/uL Abnormal Negative, 25 Robert/uL [facility] Comment on above: Order Comment: Speci men Type: URINE SPECIMENOrdering Facility: [facility] Address: [address] [place] [address] Performed By: #### L [id number] ####[facility] [place] [facility]ORATORYCLIA [id number] [address] Nitrite Ql (U) Negative Normal Negative [facility] Comment on above: Order Comment: Speci men Type: URINE SPECIMENOrdering Facility: [facility] Address: [address] [place] [address] Performed By: #### L [id number] ####[facility] [place] [facility]ORATORYCLIA [id number] [address] pH (U) 5.5 [pH] Normal 5.0-8.0 [facility] Comment on above: Order Comment: Speci men Type: URINE SPECIMENOrdering Facility: [facility] Address: [address] [place] [address] Performed By: #### L [id number] ####[facility] [place] [facility]ORATORYCLIA [id number] [address] Protein (U) [Mass/Vol] 1+ Abnormal Trace, Negati ve [facility] Comment on above: Order Comment: Speci men Type: URINE SPECIMENOrdering Facility: [facility] Address: [address] [place] [address] Performed By: #### L [id number] ####[facility] [facility]ORATORYCLIA [id number] [address] RBC LM.HPF (Urine sed) [#/Area] /[HPF] Abnormal 0-3 /HPF [facility] Comment on above: Order Comment: Speci men Type: URINE SPECIMENOrdering Facility: [facility] Address: [address] [place] [address] Performed By: #### L [id number] ####[facility] [place] LABORATORYCLIA [id number] [address] Specific gravity (U) [Rel density] 1.027 Normal 1.005-1.030 [facility] Comment on above: Order Comment: Speci men Type: URINE SPECIMENOrdering Facility: [facility] Address: [address] [place] [address] Performed By: #### L [id number] ####[facility] LABORATORYCLIA [id number] [address] Urobilinogen Ql (U) Normal Normal Negative [facility] Comment on above: Order Comment: Speci men Type: URINE SPECIMENOrdering Facility: [facility] Address: [address] [place] [address] Performed By: #### L [id number] ####[facility] LABORATORYCLIA [id number] [address] WBC LM.HPF (Urine sed) [#/Area] /[HPF] Abnormal 0-5 /HPF [facility] Comment on above: Order Comment: Speci men Type: URINE SPECIMENOrdering Facility: [facility] Address: [address] [place] [address] Performed By: #### L [id number] ####[facility] LABORATORYCLIA [id number] [address] Yeast.budding LM.HPF (Urine sed) [#/Area] Few Abnormal None Seen [facility] Comment on above: Order Comment: Speci men Type: URINE SPECIMENOrdering Facility: [facility] Address: [address] [place] [address] Performed By: #### L [id number] ####[facility] LABORATORYCLIA [id number] [address] aPTT PPPon 02-19-2023 aPTT Coag (PPP) [Time] 37.2 s High 28.5-34.0 [facility] Comment on above: Order Comment: Speci men Type: BLOOD SPECIMENOrdering Facility: [facility] Address: [address] [place] [address] Performed By: #### 1 4979-9 ####[facility] LABORATORYCLIA [id number] [address] aPTT Coag (PPP) [Time] 33.7 s High 23.0-32.4 [facility] Comment on above: Order Comment: Speci men Type: BLOOD SPECIMENOrdering Facility: [facility] Address: [address] [address] Performed By: #### 1 4979-9 ####[facility] LABORATORYCLIA [id number] [address] aPTT Coag (PPP) [Time] 28.4 s Normal 23.0-32.4 [facility] Comment on above: Order Comment: Speci men Type: BLOOD SPECIMENOrdering Facility: [facility] Address: [address] [place] [address] Performed By: #### 3 4528-0, 29382-6 ####[facility] LABORATORYCLIA [id number] [address] Absolute lymphocyte countOrd ered By: Dr. Ornelas on 02-18-2023 Lymphocytes Auto (Unsp spec) [#/Vol] 2.32 10*3/uL 0.83-4.51 [facility] Basophil percentageOrdered B y: Dr. Ornelas on 02-18-2023 Basophil percentage 180 mg/dL 74-106 [facility] Basophil percentage 7.2 g/dL 6.4-8.2 [facility] Basophil percentage 0.20 mg/dL 0.20-1.00 [facility] Basophil percentage 137 mmol/L 136-145 [facility] Basophil percentage 4.5 mmol/L 3.5-5.1 [facility] Basophil percentage 103 mmol/L 98-107 [facility] Basophil percentage 1.6 mmol/L 0.4-2.0 [facility] Basophils (Bld) [#/Vol] 13.4 10*3/uL 4.4-11.0 [facility] Basophils (Bld) [#/Vol] 10.2 10*3/uL 2.0-7.7 [facility] Basophils/100 WBC (Bld) 0.6 % 0-1 [facility] Basophils/100 WBC (Bld) 75.7 % 47-70 [facility] Basophils/100 WBC (Bld) 1.3 % 0-5 [facility] Bilirubin [Mass/Vol] 0.20 mg/dL 0.20-1.00 [facility] Comment on above: For patients on eltr ombopag therapy, use of Dimension [place] TBIL is not recommended. Chloride [Moles/Vol] 103 mmol/L 98-107 [facility] Eosinophils/100 WBC (Bld) 1.3 % 0-5 [facility] Glucose [Mass/Vol] 180 mg/dL 74-106 [facility] Comment on above: Fasting Glucose resu lt greater than or equal to 126 mg/dL suggests DIABETES MELLITUS per A.D.A. criteria. Lactate [Moles/Vol] 1.6 mmol/L 0.4-2.0 [facility] Neutrophils (Bld) [#/Vol] 10.2 10*3/uL 2.0-7.7 [facility] Neutrophils/100 WBC (Bld) 75.7 % 47-70 [facility] Potassium [Moles/Vol] 4.5 mmol/L 3.5-5.1 [facility] Protein [Mass/Vol] 7.2 g/dL 6.4-8.2 [facility] Sodium [Moles/Vol] 137 mmol/L 136-145 [facility] WBC (Bld) [#/Vol] 13.4 10*3/uL 4.4-11.0 [facility] Beta hCG serum qualOrdered B y: Dr. Ornelas on 02-18-2023 Beta HCG ( test) Ql Negative [facility] Blood erythrocytes count (nu mber/volume)Ordered By: Dr. Ornelas on 02-18-2023 RBC (Bld) [#/Vol] 3.48 10*6/uL 4.2-5.4 [facility] Blood hemoglobin measurement (mass/volume)Ordered By: Dr. Ornelas on 02-18-2023 Hemoglobin (Bld) [Mass/Vol] 9.3 g/dL 12.0-15.0 [facility] Blood lymphocytes/100 leukoc ytesOrdered By: Dr. Ornelas on 02-18-2023 Lymphocytes/100 WBC (Bld) 17.3 % 19-41 [facility] Blood monocytes/100 leukocyt esOrdered By: Dr. Ornelas on 02-18-2023 Monocytes/100 WBC (Bld) 4.4 % 0-10 [facility] Blood platelet mean volumeOr dered By: Dr. Ornelas on 02-18-2023 Platelet mean volume (Bld) [Entitic vol] 9.7 fL 6.2-12.0 [facility] CBC W Auto Differential pane l (Bld)on 02-18-2023 Basophils (Bld) [#/Vol] 0.10 10*3/uL <0.11 k/uL [facility] Basophils/100 WBC (Bld) 0.8 % [facility] Differential cell count method Nom (Bld) Auto [facility] Eosinophils (Bld) [#/Vol] 0.18 10*3/uL <0.46 k/uL [facility] Eosinophils/100 WBC (Bld) 1.5 % [facility] Erythrocyte distribution width (RBC) [Ratio] 16.3 % High 11.5 - 15.0 % [facility] Hematocrit (Bld) [Volume fraction] 32.7 % Low 36.0 - 46.0 % [facility] Hemoglobin (Bld) [Mass/Vol] 9.4 g/dL Low 11.5 - 15.5 g/dL [facility] Immature granulocytes (Bld) [#/Vol] 0.11 10*3/uL High <0.10 k/uL [facility] Immature granulocytes/100 WBC (Bld) 0.9 % [facility] Lymphocytes (Bld) [#/Vol] 2.20 10*3/uL 1.00 - 4.00 k/uL [facility] Lymphocytes/100 WBC (Bld) 18.5 % [facility] MCH (RBC) [Entitic mass] 26.5 pg 26.0 - 34.0 pg [facility] MCHC (RBC) [Mass/Vol] 28.7 g/dL Low 30.5 - 36.0 g/dL [facility] MCV (RBC) [Entitic vol] 92.1 fL 80.0 - 100.0 fL [facility] Monocytes (Bld) [#/Vol] 0.52 10*3/uL <0.87 k/uL [facility] Monocytes/100 WBC (Bld) 4.4 % [facility] Neutrophils (Bld) [#/Vol] 8.78 10*3/uL High 1.45 - 7.50 k/uL [facility] Neutrophils/100 WBC (Bld) 73.9 % [facility] Nucleated RBC (Bld) [#/Vol] <0.01 k/uL [facility] Nucleated RBC/100 WBC (Bld) [Ratio] 0.0 /100 WBC [facility] Platelet mean volume (Bld) [Entitic vol] 10.7 fL 9.0 - 12.7 fL [facility] Platelets (Bld) [#/Vol] 302 10*3/uL 150 - 400 k /uL [facility] RBC (Bld) [#/Vol] 3.55 10*6/uL Low 3.90 - 5.2 0 m/uL [facility] WBC (Bld) [#/Vol] 11.89 10*3/uL High 3.70 - 11 .00 k/uL [facility] Determination of erythrocyte mean corpuscular volume (MCV)Ordered By: Dr. Ornelas on 02-18-2023 MCV (RBC) [Entitic vol] 93.7 fL 81-99 [facility] HbA1c (Bld)on 02-18-2023 Average glucose Estimated from glycated hemoglobin (Bld) [Mass/Vol] 194 mg/dL [facility] HbA1c (Bld) [Mass fraction] 8.4 % High 4.3 - 5.6 % [facility] Hematocrit Auto (Bld) [Volum e fraction]Ordered By: Dr. Ornelas on 02-18-2023 Hematocrit (Bld) [Volume fraction] 32.6 % 37-47 [facility] Laboratory - Chemistry and C hemistry - challengeOrdered By: Dr. Ornelas on 02-18-2023 ALP [Catalytic activity/Vol] 68 U/L 45-117 [facility] ALT [Catalytic activity/Vol] 15 U/L 13-56 [facility] CO2 [Moles/Vol] 31.0 mmol/L 21.0-32.0 [facility] Globulin (S) [Mass/Vol] 4.6 g/dL 2.2-4.2 [facility] Urea nitrogen/Creatinine [Mass ratio] 18.4 mg/mg 10- [facility] Laboratory - Hematology and Cell countsOrdered By: Dr. Ornelas on 02-18-2023 Erythrocyte distribution width (RBC) [Entitic vol] 56.1 fL 35.1-43.9 [facility] Erythrocyte distribution width (RBC) [Ratio] 16.3 % 11.6-14.6 [facility] Immature granulocytes/100 WBC (Bld) 0.700 % 0.0-0.9 [facility] Comment on above: IG% - Immature Granu locytes (promyelocytes, myelocytes and metamyelocytes) > 1% indicates that a LEFT SHIFT is Present. MCH (RBC) [Entitic mass] 26.7 pg 27.0-32.0 [facility] Nucleated RBC/100 WBC (Bld) [Ratio] 0 % 0-5 [facility] MCHC Auto (RBC) [Mass/Vol]Or dered By: Dr. Ornelas on 02-18-2023 MCHC (RBC) [Mass/Vol] 28.5 g/dL 32-36 [facility] No Panel InformationOrdered By: Dr. Ornleas on 02-18-2023 Estimated Creatinine Clearance Calc 77.96 ml/min [facility] Estimated GFR (MDRD) Amer 97 mL/min >60 [facility] Comment on above: GFR Calc Estimated GFR (MDRD) Non-Af Amer 81 mL/min >60 [facility] Comment on above: Non- GFR Calc 26.7 pg 27.0-32.0 [facility] 16.3 % 11.6-14.6 [facility] 56.1 fl 35.1-43.9 [facility] 0.700 % 0.0-0.9 [facility] 0 % 0-5 [facility] 81 mL/min >60 [facility] 97 mL/min >60 [facility] 77.96 ml/min [facility] 18.4 RATIO - [facility] 4.6 g/dL 2.2-4.2 [facility] 68 U/L 45-117 [facility] 15 U/L 13-56 [facility] 31.0 mmol/L 21.0-32.0 [facility] Platelets bldOrdered By: Dr. Ornelas on 02-18-2023 Platelets (Bld) [#/Vol] 293 10*3/uL 150-450 [facility] Serum or plasma albumin yunior urement (mass/volume)Ordered By: Dr. Ornelas on 02-18-2023 Albumin [Mass/Vol] 2.6 g/dL 3.2-5.0 [facility] Serum or plasma albumin/glob ulin mass ratioOrdered By: Dr. Ornelas on 02-18-2023 Albumin/Globulin [Mass ratio] 0.6 {ratio} 0.9-2.4 [facility] Serum or plasma calcium yunior urement (mass/volume)Ordered By: Dr. Ornelas on 02-18-2023 Calcium [Mass/Vol] 8.3 mg/dL 8.5-10.1 [facility] Serum or plasma creatinine m easurement (mass/volume)Ordered By: Dr. Ornelas on 02-18-2023 Creatinine [Mass/Vol] 0.82 mg/dL 0.55-1.02 [facility] Comment on above: The validity of the calculated GFR & GFRAA in patients over 70 years has not been determined. Clinical correlation is essential. Serum or plasma urea nitroge n measurement (mass/volume)Ordered By: Dr. Ornelas on 02-18-2023 Urea nitrogen [Mass/Vol] 15 mg/dL 7-18 [facility] Thin prep Papanicolaou smear with manual screeningOrdered By: Dr. Ornelas on 02-18-2023 Thin prep Papanicolaou smear with manual screening 9 U/L 15-37 [facility] Thin prep Papanicolaou smear with manual screening 3 5-15 [facility] CNPNon 01-20-2023 CNPN Normal [facility] Basic metabolic 2000 panelon 01-16-2023 Anion gap [Moles/Vol] 12 mmol/L Normal 9-18 [facility] Comment on above: Order Comment: Speci men Type: BLOOD SPECIMENOrdering Facility: [facility] Address: [address] [place], [place] [address] [address] Performed By: #### 2 4321-2 ####[facility] LABORATORYCLIA [id number] [address] [place] Calcium [Mass/Vol] 8.6 mg/dL Normal 8.5-10.2 [facility] Comment on above: Order Comment: Speci men Type: BLOOD SPECIMENOrdering Facility: [facility] Address: [address] [place] [address] Performed By: #### 2 4321-2 ####[facility] LABORATORYCLIA [id number] [place] [address] [place] Chloride [Moles/Vol] 98 mmol/L Normal 97-105 [facility] Comment on above: Order Comment: Speci men Type: BLOOD SPECIMENOrdering Facility: [facility] Address: [address] [place] [address] Performed By: #### 2 4321-2 ####[facility] LABORATORYCLIA [id number] [address] [place] CO2 [Moles/Vol] 27 mmol/L Normal 22-30 [facility] Comment on above: Order Comment: Speci men Type: BLOOD SPECIMENOrdering Facility: [facility] Address: [address] [place] [address] Performed By: #### 2 4321-2 ####[facility] LABORATORYCLIA [id number] [address] [place] Creatinine [Mass/Vol] 0.95 mg/dL Normal 0.58-0.96 [facility] Comment on above: Order Comment: Speci men Type: BLOOD SPECIMENOrdering Facility: [facility] Address: [address] [place] [address] Performed By: #### 2 4321-2 ####[facility] LABORATORYCLIA [id number] [address] [place] ESTIMATED GLOMERULAR FILTRATION RATE 75 mL/min/1.73m??? Normal >=60 [facility] Comment on above: Order Comment: Speci men Type: BLOOD SPECIMENOrdering Facility: [facility] Address: [address] [place], [place] [id number] Result Comment: Gayle mated Glomerular Filtration Rate [...] actual GFR. Performed By: #### 2 4321-2 ####[facility] LABORATORYCLIA [id number] [place] [address] [place] Glucose [Mass/Vol] 212 mg/dL High 74-99 [facility] Comment on above: Order Comment: Roberto talbot Type: BLOOD SPECIMENOrdering Facility: [facility] Address: [address] [place], [place] [id number] Result Comment: The [place] [employer] [...] 2016.39(Suppl 1). Performed By: #### 2 4321-2 ####[facility] LABORATORYCLIA [id number] [place] [address] [place] Potassium [Moles/Vol] 3.8 mmol/L Normal 3.7-5.1 [facility] Comment on above: Order Comment: Roberto [facility] Type: BLOOD SPECIMENOrdering Facility: [facility] Address: [address] [place], [place] [id number] Performed By: #### 2 4321-2 ####[facility] LABORATORYCLIA [id number] [address] [place] Sodium [Moles/Vol] 137 mmol/L Normal 136-144 [facility] Comment on above: Order Comment: Speci men Type: BLOOD SPECIMENOrdering Facility: [facility] Address: [address] [place] [address] Performed By: #### 2 4321-2 ####[facility] LABORATORYCLIA [id number] [place] [address] [place] Urea nitrogen [Mass/Vol] 12 mg/dL Normal 7-21 [facility] Comment on above: Order Comment: Speci men Type: BLOOD SPECIMENOrdering Facility: [facility] Address: [address] [place] [address] Performed By: #### 2 4321-2 ####[facility] LABORATORYCLIA [id number] [address] [place] CASE MANAGEMon 01-16-2023 CASE MANAGEM Normal [facility] CBC panel Auto (Bld)on 01-16 Erythrocyte distribution width (RBC) [Ratio] 16.8 % High 11.5-15.0 [facility] Comment on above: Order Comment: Speci men Type: BLOOD SPECIMENOrdering Facility: [facility] Address: [address] [place] [address] Performed By: #### 5 8410-2 ####[facility] LABORATORYCLIA [id number] [place] [address] [place] Hematocrit (Bld) [Volume fraction] 33.3 % Low 36.0-46.0 [facility] Comment on above: Order Comment: Speci men Type: BLOOD SPECIMENOrdering Facility: [facility] Address: [address] [place] [address] Performed By: #### 5 8410-2 ####[facility] LABORATORYCLIA [id number] [place] [address] [place] Hemoglobin (Bld) [Mass/Vol] 9.7 g/dL Low 11.5-15.5 [facility] Comment on above: Order Comment: Speci men Type: BLOOD SPECIMENOrdering Facility: [facility] Address: [address] [address] Performed By: #### 5 8410-2 ####[facility] LABORATORYCLIA [id number] [address] MCH (RBC) [Entitic mass] 27.6 pg Normal 26.0-34.0 [facility] Comment on above: Order Comment: Speci men Type: BLOOD SPECIMENOrdering Facility: [facility] Address: [address] [address] Performed By: #### 5 8410-2 ####[facility] LABORATORYCLIA [id number] [address] MCHC (RBC) [Mass/Vol] 29.1 g/dL Low 30.5-36.0 [facility] Comment on above: Order Comment: Speci men Type: BLOOD SPECIMENOrdering Facility: [facility] Address: [address] [address] Performed By: #### 5 8410-2 ####[facility] LABORATORYCLIA [id number] [address] MCV (RBC) [Entitic vol] 94.9 fL Normal 80.0-100.0 [facility] Comment on above: Order Comment: Speci men Type: BLOOD SPECIMENOrdering Facility: [facility] Address: [address] [address] Performed By: #### 5 8410-2 ####[facility] LABORATORYCLIA [id number] [address] Nucleated RBC (Bld) [#/Vol] 0.02 10*3/uL High <0.01 [facility] Comment on above: Order Comment: Speci men Type: BLOOD SPECIMENOrdering Facility: [facility] Address: [address] [place] [address] Performed By: #### 5 8410-2 ####[facility] LABORATORYCLIA [id number] [address] [place] Platelet mean volume (Bld) [Entitic vol] 9.4 fL Normal 9.0-12.7 [facility] Comment on above: Order Comment: Speci men Type: BLOOD SPECIMENOrdering Facility: [facility] Address: [address] [place] [address] Performed By: #### 5 8410-2 ####[facility] LABORATORYCLIA [id number] [place] [address] [place] Platelets (Bld) [#/Vol] 234 10*3/uL Normal 150-400 [facility] Comment on above: Order Comment: Speci men Type: BLOOD SPECIMENOrdering Facility: [facility] Address: [address] [place] [address] Performed By: #### 5 8410-2 ####[facility] LABORATORYCLIA [id number] [address] STATES OF [facility] RBC (Bld) [#/Vol] 3.51 10*6/uL Low 3.90-5.20 [facility] Comment on above: Order Comment: Speci men Type: BLOOD SPECIMENOrdering Facility: [facility] Address: [address] [place] [address] Performed By: #### 5 8410-2 ####[facility] LABORATORYCLIA [id number] [address] [place] WBC (Bld) [#/Vol] 11.70 10*3/uL High 3.70-11.00 [facility] Comment on above: Order Comment: Speci men Type: BLOOD SPECIMENOrdering Facility: [facility] Address: [address] [place] [address] Performed By: #### 5 8410-2 ####[facility] LABORATORYCLIA [id number] [address] [place] CNDSon 01-16-2023 CNDS Normal [facility] NURSING PROGon 01-16-2023 NURSING PROG Normal [facility] Basic metabolic 2000 panelon 01-15-2023 Anion gap [Moles/Vol] 10 mmol/L Normal 9-18 [facility] Comment on above: Order Comment: Speci men Type: BLOOD SPECIMENOrdering Facility: [facility] Address: [address] [place] [address] Performed By: #### 2 4321-2 ####[facility] LABORATORYCLIA [id number] [place] [address] [place] Calcium [Mass/Vol] 8.8 mg/dL Normal 8.5-10.2 [facility] Comment on above: Order Comment: Speci men Type: BLOOD SPECIMENOrdering Facility: [facility] Address: [address] [place] [address] Performed By: #### 2 4321-2 ####[facility]ORATORYCLIA [id number] [place] [address] [place] Chloride [Moles/Vol] 99 mmol/L Normal 97-105 [facility] Comment on above: Order Comment: Speci men Type: BLOOD SPECIMENOrdering Facility: [facility] Address: [address] [place] [address] Performed By: #### 2 4321-2 ####[facility]ORATORYCLIA [id number] [place] [address] [place] CO2 [Moles/Vol] 29 mmol/L Normal 22-30 [facility] Comment on above: Order Comment: Speci men Type: BLOOD SPECIMENOrdering Facility: [facility] Address: [address] [place] [address] Performed By: #### 2 4321-2 ####[facility]ORATORYCLIA [id number] [place] [address] [place] Creatinine [Mass/Vol] 0.85 mg/dL Normal 0.58-0.96 [facility] Comment on above: Order Comment: Speci men Type: BLOOD SPECIMENOrdering Facility: [facility] Address: [address] [place] [address] Performed By: #### 2 4321-2 ####[facility]ORATORYCLIA [id number] [place] [id number] [place] ESTIMATED GLOMERULAR FILTRATION RATE 86 mL/min/1.73m??? Normal >=60 [facility] Comment on above: Order Comment: Roberto talbot Type: BLOOD SPECIMENOrdering Facility: [facility] Address: [address] [place] [address] Result Comment: Gayle mated Glomerular Filtration Rate [...] actual GFR. Performed By: #### 2 4321-2 ####[facility]ORATORYCLIA [id number] [place] [address] [place] Glucose [Mass/Vol] 184 mg/dL High 74-99 [facility] Comment on above: Order Comment: Roberto talbot Type: BLOOD SPECIMENOrdering Facility: [facility] Address: [address] [place] [address] Result Comment: The [place] [employer] [...] 2016.39(Suppl 1). Performed By: #### 2 4321-2 ####[facility] LABORATORYCLIA [id number] [place] [id number] [place] Potassium [Moles/Vol] 3.7 mmol/L Normal 3.7-5.1 [facility] Comment on above: Order Comment: Speci men Type: BLOOD SPECIMENOrdering Facility: [facility] Address: [address] [address] Performed By: #### 2 4321-2 ####[facility] LABORATORYCLIA [id number] [address] [place] Sodium [Moles/Vol] 138 mmol/L Normal 136-144 [facility] Comment on above: Order Comment: Speci men Type: BLOOD SPECIMENOrdering Facility: [facility] Address: [address] [address] Performed By: #### 2 4321-2 ####[facility]ORATORYCLIA [id number] [address] [place] Urea nitrogen [Mass/Vol] 8 mg/dL Normal 7-21 [facility] Comment on above: Order Comment: Speci men Type: BLOOD SPECIMENOrdering Facility: [facility] Address: [address] [place] [address] Performed By: #### 2 4321-2 ####[facility] LABORATORYCLIA [id number] [address] [place] C trach+GC DNA Ur Ql SURESH+pro beon 01-15-2023 C. trachomatis+N. gonorrhoeae DNA SURESH+probe Ql (U) GC AMPLIFICATION: Negative for Neisseria gonorrhoeae by amplification CHLAMYDIA AMPLIFICATION: Negative for Chlamydia trachomatis by amplification Normal [facility] Comment on above: Performed By: #### 4 4806-8 ####[facility] LABORATORYCLIA [id number] [address] [place] CASE MGT INIT ASSESon 2022 CASE MGT INIT ASSES Normal [facility] CBC panel Auto (Bld)on 01-15 Erythrocyte distribution width (RBC) [Ratio] 16.7 % High 11.5-15.0 [facility] Comment on above: Order Comment: Speci men Type: BLOOD SPECIMENOrdering Facility: [facility] Address: [address] [address] Performed By: #### 5 8410-2 ####[facility]ORATORYCLIA [id number] [address] Hematocrit (Bld) [Volume fraction] 35.8 % Low 36.0-46.0 [facility] Comment on above: Order Comment: Speci men Type: BLOOD SPECIMENOrdering Facility: [facility] Address: [address] [place] [address] Performed By: #### 5 8410-2 ####[facility] [facility]ORYCLIA [id number] [address] OF [facility] Hemoglobin (Bld) [Mass/Vol] 10.3 g/dL Low 11.5-15.5 [facility] Comment on above: Order Comment: Speci men Type: BLOOD SPECIMENOrdering Facility: [facility] Address: [address] [place] [address] Performed By: #### 5 8410-2 ####[facility]ATORYCLIA [id number] [address] MCH (RBC) [Entitic mass] 27.4 pg Normal 26.0-34.0 [facility] Comment on above: Order Comment: Speci men Type: BLOOD SPECIMENOrdering Facility: [facility] Address: [address] [place] [address] Performed By: #### 5 8410-2 ####[facility]ATORYCLIA [id number] [address] [place] MCHC (RBC) [Mass/Vol] 28.8 g/dL Low 30.5-36.0 [facility] Comment on above: Order Comment: Speci men Type: BLOOD SPECIMENOrdering Facility: [facility] Address: [address] [place] [address] Performed By: #### 5 8410-2 ####[facility]ATORYCLIA [id number] [address] MCV (RBC) [Entitic vol] 95.2 fL Normal 80.0-100.0 [facility] Comment on above: Order Comment: Speci men Type: BLOOD SPECIMENOrdering Facility: [facility] Address: [address] [address] Performed By: #### 5 8410-2 ####[facility]ATORYCLIA [id number] [address] [place] Nucleated RBC (Bld) [#/Vol] 0.02 10*3/uL High <0.01 [facility] Comment on above: Order Comment: Speci men Type: BLOOD SPECIMENOrdering Facility: [facility] Address: [address] [address] Performed By: #### 5 8410-2 ####[facility]ATORYCLIA [id number] [address] [place] Platelet mean volume (Bld) [Entitic vol] 9.4 fL Normal 9.0-12.7 [facility] Comment on above: Order Comment: Speci men Type: BLOOD SPECIMENOrdering Facility: [facility] Address: [address] [address] Performed By: #### 5 8410-2 ####[facility]ATORYCLIA [id number] [address] [place] Platelets (Bld) [#/Vol] 265 10*3/uL Normal 150-400 [facility] Comment on above: Order Comment: Speci men Type: BLOOD SPECIMENOrdering Facility: [facility] Address: [address] [address] Performed By: #### 5 8410-2 ####[facility]ATORYCLIA [id number] [address] [place] RBC (Bld) [#/Vol] 3.76 10*6/uL Low 3.90-5.20 [facility] Comment on above: Order Comment: Speci men Type: BLOOD SPECIMENOrdering Facility: [facility] Address: [address] [place] [address] Performed By: #### 5 8410-2 ####[facility]ATORYCLIA [id number] [place] [address] [place] WBC (Bld) [#/Vol] 11.55 10*3/uL High 3.70-11.00 [facility] Comment on above: Order Comment: Speci men Type: BLOOD SPECIMENOrdering Facility: [facility] Address: [address] [place] [address] Performed By: #### 5 8410-2 ####[facility]ORATORYCLIA [id number] [address] OF [facility] CONSULT PROGon 01-15-2023 CONSULT PROG Normal [facility] HCG ( test) Ql (U)o n 01-15-2023 Specific gravity (U) [Rel density] 1.014 Normal 1.006-1.029 [facility] Comment on above: Order Comment: Speci men Type: URINE SPECIMENOrdering Facility: [facility] Address: [address] [place] [address] Result Comment: If s pecific gravity is <1.005 then results may be falsely negative. Serum HCG is recommended. Performed By: #### 2 106-3 ####[facility]ATORYCLIA [id number] [address] HCG Preg Ur Qlon 01-15-2023 HCG ( test) Ql (U) Negative Normal Negative [facility] Comment on above: Order Comment: Speci men Type: URINE SPECIMENOrdering Facility: [facility] Address: [address] [place] [address] Result Comment: This test is intended to aid in the early detection of . Very dilute urine samples, as indicated by a low specific gravity, may not contain medical representative levels of hCG. This test detects [...] for . Performed By: #### 2 106-3 ####[facility]ATORYCLIA [id number] [address] [place] T VAGINALIS AMPLIFICATIONon 01-15-2023 T. vaginalis DNA SURESH+probe Ql (Unsp spec) Negative Normal Negative for Trichomonas vaginalis by amplification [facility] Comment on above: Order Comment: Speci men Type: URINE SPECIMENOrdering Facility: [facility] Address: [address] [place] [address] Performed By: #### T RVAMP ####[facility] LABCLIA [id number] [facility] [place] [address] [place] ALLIED HEALTHon 01-14-2023 ALLIED HEALTH Normal [facility] ANES POSTPROC EVALon 023 ANES POSTPROC EVAL Normal [facility] ANES PRE-OPon 01-14-2023 ANES PRE-OP Normal [facility] BRIEF OP NOTon 01-14-2023 BRIEF OP NOT Normal [facility] Bacteria Wnd Culton 01-14-20 23 Bacteria identified Cx Nom (Wound) Abnormal [facility] Comment on above: Performed By: #### 6 462-6 ####[facility]ATORYCLIA [id number] [place] [address] [place] Basic metabolic 2000 panelon 01-14-2023 Anion gap [Moles/Vol] 10 mmol/L Normal 9-18 [facility] Comment on above: Order Comment: Speci men Type: BLOOD SPECIMENOrdering Facility: [facility] Address: [address] [address] Performed By: #### 2 4321-2 ####[facility]ATORYCLIA [id number] [place] [address] [place] Calcium [Mass/Vol] 8.9 mg/dL Normal 8.5-10.2 [facility] Comment on above: Order Comment: Speci men Type: BLOOD SPECIMENOrdering Facility: [facility] Address: [address] [address] Performed By: #### 2 4321-2 ####[facility]ATORYCLIA [id number] [address] STATES OF [facility] Chloride [Moles/Vol] 98 mmol/L Normal 97-105 [facility] Comment on above: Order Comment: Speci men Type: BLOOD SPECIMENOrdering Facility: [facility] Address: [address] [place] [address] Performed By: #### 2 4321-2 ####[facility]ATORYCLIA [id number] [address] STATES OF [facility] CO2 [Moles/Vol] 28 mmol/L Normal 22-30 [facility] Comment on above: Order Comment: Speci men Type: BLOOD SPECIMENOrdering Facility: [facility] Address: [address] [place] [address] Performed By: #### 2 4321-2 ####[facility]ATORYCLIA [id number] [address] OF [facility] Creatinine [Mass/Vol] 0.82 mg/dL Normal 0.58-0.96 [facility] Comment on above: Order Comment: Speci men Type: BLOOD SPECIMENOrdering Facility: [facility] Address: [address] [place] [address] Performed By: #### 2 4321-2 ####[facility]ATORYCLIA [id number] [address] ESTIMATED GLOMERULAR FILTRATION RATE 90 mL/min/1.73m??? Normal >=60 [facility] Comment on above: Order Comment: Speci men Type: BLOOD SPECIMENOrdering Facility: [facility] Address: [address] [place] [address] Result Comment: Gayle mated Glomerular Filtration Rate [...] actual GFR. Performed By: #### 2 4321-2 ####[facility]ATORYCLIA [id number] [place] [address] [place] Glucose [Mass/Vol] 178 mg/dL High 74-99 [facility] Comment on above: Order Comment: Speci men Type: BLOOD SPECIMENOrdering Facility: [facility] Address: [address] [place] [address] Result Comment: The [place] [employer] [...] 2016.39(Suppl 1). Performed By: #### 2 4321-2 ####[facility]ATORYCLIA [id number] [place] [address] [place] Potassium [Moles/Vol] 3.9 mmol/L Normal 3.7-5.1 [facility] Comment on above: Order Comment: Speci men Type: BLOOD SPECIMENOrdering Facility: [facility] Address: [address] [place] [address] Performed By: #### 2 4321-2 ####[facility]ATORYCLIA [id number] [place] [address] [place] Sodium [Moles/Vol] 136 mmol/L Normal 136-144 [facility] Comment on above: Order Comment: Speci men Type: BLOOD SPECIMENOrdering Facility: [facility] Address: [address] [place] [address] Performed By: #### 2 4321-2 ####[facility]ATORYCLIA [id number] [place] [address] [place] Urea nitrogen [Mass/Vol] 11 mg/dL Normal 7-21 [facility] Comment on above: Order Comment: Speci men Type: BLOOD SPECIMENOrdering Facility: [facility] Address: [address] [place] [address] Performed By: #### 2 4321-2 ####[facility]ATORYCLIA [id number] [address] STATES OF [facility] CBC panel Auto (Bld)on 01-14 Erythrocyte distribution width (RBC) [Ratio] 16.5 % High 11.5-15.0 [facility] Comment on above: Order Comment: Speci men Type: BLOOD SPECIMENOrdering Facility: [facility] Address: [address] [place] [address] Performed By: #### 5 8410-2 ####[facility]ATORYCLIA [id number] [address] STATES [facility] Hematocrit (Bld) [Volume fraction] 33.1 % Low 36.0-46.0 [facility] Comment on above: Order Comment: Speci men Type: BLOOD SPECIMENOrdering Facility: [facility] Address: [address] [place] [address] Performed By: #### 5 8410-2 ####[facility]ATORYCLIA [id number] [address] STATES OF [facility] Hemoglobin (Bld) [Mass/Vol] 10.0 g/dL Low 11.5-15.5 [facility] Comment on above: Order Comment: Speci men Type: BLOOD SPECIMENOrdering Facility: [facility] Address: [address] [place] [address] Performed By: #### 5 8410-2 ####[facility]ATORYCLIA [id number] [address] STATES [facility] MCH (RBC) [Entitic mass] 28.0 pg Normal 26.0-34.0 [facility] Comment on above: Order Comment: Speci men Type: BLOOD SPECIMENOrdering Facility: [facility] Address: [address] [place] [address] Performed By: #### 5 8410-2 ####[facility]ATORYCLIA [id number] [address] MCHC (RBC) [Mass/Vol] 30.2 g/dL Low 30.5-36.0 [facility] Comment on above: Order Comment: Speci men Type: BLOOD SPECIMENOrdering Facility: [facility] Address: [address] [place] [address] Performed By: #### 5 8410-2 ####[facility]ATORYCLIA [id number] [address] MCV (RBC) [Entitic vol] 92.7 fL Normal 80.0-100.0 [facility] Comment on above: Order Comment: Speci men Type: BLOOD SPECIMENOrdering Facility: [facility] Address: [address] [place] [address] Performed By: #### 5 8410-2 ####[facility]ATORYCLIA [id number] [address] Nucleated RBC (Bld) [#/Vol] 10*3/uL Normal <0.01 [facility] Comment on above: Order Comment: Speci men Type: BLOOD SPECIMENOrdering Facility: [facility] Address: [address] [place] [address] Performed By: #### 5 8410-2 ####[facility]ATORYCLIA [id number] [address] Platelet mean volume (Bld) [Entitic vol] 9.5 fL Normal 9.0-12.7 [facility] Comment on above: Order Comment: Speci men Type: BLOOD SPECIMENOrdering Facility: [facility] Address: [address] [place] [address] Performed By: #### 5 8410-2 ####[facility]ATORYCLIA [id number] [address] [place] Platelets (Bld) [#/Vol] 284 10*3/uL Normal 150-400 [facility] Comment on above: Order Comment: Speci men Type: BLOOD SPECIMENOrdering Facility: [facility] Address: [address] [place] [address] Performed By: #### 5 8410-2 ####[facility]ATORYCLIA [id number] [address] STATES OF [facility] RBC (Bld) [#/Vol] 3.57 10*6/uL Low 3.90-5.20 [facility] Comment on above: Order Comment: Speci men Type: BLOOD SPECIMENOrdering Facility: [facility] Address: [address] [place] [address] Performed By: #### 5 8410-2 ####[facility]ATORYCLIA [id number] [address] WBC (Bld) [#/Vol] 9.64 10*3/uL Normal 3.70-11.00 [facility] Comment on above: Order Comment: Speci men Type: BLOOD SPECIMENOrdering Facility: [facility] Address: [address] [place] [address] Performed By: #### 5 8410-2 ####[facility]ATORYCLIA [id number] [address] ABD/PEL W IVCONon 023 CT ABD/PEL W IVCON Normal [facility] HISTORY PHYSICALon 3 HISTORY PHYSICAL Normal [facility] OPERATIVE NOon 01-14-2023 OPERATIVE NO Normal [facility] SARS-CoV-2 RNA Resp Ql SURESH+p robeon 01-14-2023 SARS-CoV-2 (COVID-19) RNA SURESH+probe Ql (Resp) COVID 19 RESULT: Not detected The method used is RT-PCR or an equivalent NAAT method. Reference Range(the expected result in uninfected individuals): Not detected Normal [facility] Comment on above: Performed By: #### 9 4500-6 ####[facility]ATORYCLIA [id number] [address] CNOVon 01-13-2023 CNOV Normal [facility] Basic metabolic 2000 panelon 01-12-2023 Anion gap [Moles/Vol] 14 mmol/L Normal 9-18 [facility] Comment on above: Order Comment: Speci men Type: BLOOD SPECIMENOrdering Facility: [facility] Address: [address] [place] [address] Performed By: #### 2 4321-2 ####[facility]ORATORYCLIA [id number] [place] [address] [place] Calcium [Mass/Vol] 9.4 mg/dL Normal 8.5-10.2 [facility] Comment on above: Order Comment: Speci men Type: BLOOD SPECIMENOrdering Facility: [facility] Address: [address] [place] [address] Performed By: #### 2 4321-2 ####[facility]ATORYCLIA [id number] [address] [place] Chloride [Moles/Vol] 101 mmol/L Normal 97-105 [facility] Comment on above: Order Comment: Speci men Type: BLOOD SPECIMENOrdering Facility: [facility] Address: [address] [place] [address] Performed By: #### 2 4321-2 ####[facility]ORATORYCLIA [id number] [address] [place] CO2 [Moles/Vol] 26 mmol/L Normal 22-30 [facility] Comment on above: Order Comment: Speci men Type: BLOOD SPECIMENOrdering Facility: [facility] Address: [address] [place] [address] Performed By: #### 2 4321-2 ####[facility]ORATORYCLIA [id number] [address] [place] Creatinine [Mass/Vol] 0.76 mg/dL Normal 0.58-0.96 [facility] Comment on above: Order Comment: Speci men Type: BLOOD SPECIMENOrdering Facility: [facility] Address: [address] [place], [place] [address] Performed By: #### 2 4321-2 ####[facility]ATORYCLIA [id number] [address] [place] ESTIMATED GLOMERULAR FILTRATION RATE 99 mL/min/1.73m??? Normal >=60 [facility] Comment on above: Order Comment: Specernesto dahiana Type: BLOOD SPECIMENOrdering Facility: [facility] Address: [address] [address] Result Comment: Gayle mated Glomerular Filtration Rate [...] actual GFR. Performed By: #### 2 4321-2 ####[facility]ITALIA [id number] [place] [address] [place] Glucose [Mass/Vol] 221 mg/dL High 74-99 [facility] Comment on above: Order Comment: Roberto talbot Type: BLOOD SPECIMENOrdering Facility: [facility] Address: [address] [place] [address] [address] Result Comment: The [place] [employer] [...] 2016.39(Suppl 1). Performed By: #### 2 4321-2 ####[facility]ATORYCLIA [id number] [place] [address] [place] Potassium [Moles/Vol] 4.7 mmol/L Normal 3.7-5.1 [facility] Comment on above: Order Comment: Speci men Type: BLOOD SPECIMENOrdering Facility: [facility] Address: [address] [address] Performed By: #### 2 4321-2 ####[facility]ORATORYCLIA [id number] [address] STATES OF [facility] Sodium [Moles/Vol] 141 mmol/L Normal 136-144 [facility] Comment on above: Order Comment: Speci men Type: BLOOD SPECIMENOrdering Facility: [facility] Address: [address] [address] Performed By: #### 2 4321-2 ####[facility]ATORYCLIA [id number] [address] STATES OF [facility] Urea nitrogen [Mass/Vol] 15 mg/dL Normal 7-21 [facility] Comment on above: Order Comment: Speci men Type: BLOOD SPECIMENOrdering Facility: [facility] Address: [address] [address] Performed By: #### 2 4321-2 ####[facility]ATORYCLIA [id number] [place] [address] [place] CBC W Auto Differential pane l (Bld)on 01-12-2023 Basophils (Bld) [#/Vol] 0.09 10*3/uL Normal <0.11 [facility] Comment on above: Order Comment: Speci men Type: BLOOD SPECIMENOrdering Facility: [facility] Address: [address] [address] Performed By: #### 5 7021-8 ####[facility]ATORYCLIA [id number] [address] Basophils/100 WBC (Bld) 0.9 % Normal [facility] Comment on above: Order Comment: Speci men Type: BLOOD SPECIMENOrdering Facility: [facility] Address: [address] [address] Performed By: #### 5 7021-8 ####[facility]ATORYCLIA [id number] [address] Differential cell count method Nom (Bld) Auto Normal [facility] Comment on above: Order Comment: Speci men Type: BLOOD SPECIMENOrdering Facility: [facility] Address: [address] [place] [address] Performed By: #### 5 7021-8 ####[facility]ATORYCLIA [id number] [address] [place] Eosinophils (Bld) [#/Vol] 0.22 10*3/uL Normal <0.46 [facility] Comment on above: Order Comment: Speci men Type: BLOOD SPECIMENOrdering Facility: [facility] Address: [address] [place] [address] Performed By: #### 5 7021-8 ####[facility]ATORYCLIA [id number] [address] Eosinophils/100 WBC (Bld) 2.1 % Normal [facility] Comment on above: Order Comment: Speci men Type: BLOOD SPECIMENOrdering Facility: [facility] Address: [address] [place] [address] Performed By: #### 5 7021-8 ####[facility]ATORYCLIA [id number] [address] [place] Erythrocyte distribution width (RBC) [Ratio] 16.6 % High 11.5-15.0 [facility] Comment on above: Order Comment: Speci men Type: BLOOD SPECIMENOrdering Facility: [facility] Address: [address] [place] [address] Performed By: #### 5 7021-8 ####[facility]ATORYCLIA [id number] [address] Hematocrit (Bld) [Volume fraction] 37.0 % Normal 36.0-46.0 [facility] Comment on above: Order Comment: Speci men Type: BLOOD SPECIMENOrdering Facility: [facility] Address: [address] [place] [address] Performed By: #### 5 7021-8 ####[facility]ORATORYCLIA [id number] [place] [address] [place] Hemoglobin (Bld) [Mass/Vol] 10.9 g/dL Low 11.5-15.5 [facility] Comment on above: Order Comment: Speci men Type: BLOOD SPECIMENOrdering Facility: [facility] Address: [address] [place] [address] Performed By: #### 5 7021-8 ####[facility]ATORYCLIA [id number] [place] [address] [place] Immature granulocytes (Bld) [#/Vol] 0.12 10*3/uL High <0.10 [facility] Comment on above: Order Comment: Speci men Type: BLOOD SPECIMENOrdering Facility: [facility] Address: [address] [place] [address] Performed By: #### 5 7021-8 ####[facility]ATORYCLIA [id number] [address] [place] Immature granulocytes/100 WBC (Bld) 1.1 % Normal [facility] Comment on above: Order Comment: Speci men Type: BLOOD SPECIMENOrdering Facility: [facility] Address: [address] [place] [address] Performed By: #### 5 7021-8 ####[facility]ATORYCLIA [id number] [place] [address] [place] Lymphocytes (Bld) [#/Vol] 2.50 10*3/uL Normal 1.00-4.00 [facility] Comment on above: Order Comment: Speci men Type: BLOOD SPECIMENOrdering Facility: [facility] Address: [address] [place] [address] Performed By: #### 5 7021-8 ####[facility]ORATORYCLIA [id number] [address] [place] Lymphocytes/100 WBC (Bld) 23.8 % Normal [facility] Comment on above: Order Comment: Speci men Type: BLOOD SPECIMENOrdering Facility: [facility] Address: [address] [place] [address] Performed By: #### 5 7021-8 ####[facility]ATORYCLIA [id number] [address] MCH (RBC) [Entitic mass] 28.0 pg Normal 26.0-34.0 [facility] Comment on above: Order Comment: Speci men Type: BLOOD SPECIMENOrdering Facility: [facility] Address: [address] [place] [address] Performed By: #### 5 7021-8 ####[facility]ATORYCLIA [id number] [address] [place] MCHC (RBC) [Mass/Vol] 29.5 g/dL Low 30.5-36.0 [facility] Comment on above: Order Comment: Speci men Type: BLOOD SPECIMENOrdering Facility: [facility] Address: [address] [place] [address] Performed By: #### 5 7021-8 ####[facility]ATORYCLIA [id number] [address] MCV (RBC) [Entitic vol] 95.1 fL Normal 80.0-100.0 [facility] Comment on above: Order Comment: Speci men Type: BLOOD SPECIMENOrdering Facility: [facility] Address: [address] [place] [address] Performed By: #### 5 7021-8 ####[facility]ATORYCLIA [id number] [address] Monocytes (Bld) [#/Vol] 0.50 10*3/uL Normal <0.87 [facility] Comment on above: Order Comment: Speci men Type: BLOOD SPECIMENOrdering Facility: [facility] Address: [address] [place] [address] Performed By: #### 5 7021-8 ####[facility]ATORYCLIA [id number] [place] [address] [place] Monocytes/100 WBC (Bld) 4.8 % Normal [facility] Comment on above: Order Comment: Speci men Type: BLOOD SPECIMENOrdering Facility: [facility] Address: [address] [place] [address] Performed By: #### 5 7021-8 ####[facility]ATORYCLIA [id number] [place] [address] [place] Neutrophils (Bld) [#/Vol] 7.07 10*3/uL Normal 1.45-7.50 [facility] Comment on above: Order Comment: Speci men Type: BLOOD SPECIMENOrdering Facility: [facility] Address: [address] [place] [address] Performed By: #### 5 7021-8 ####[facility]ATORYCLIA [id number] [address] [place] Neutrophils/100 WBC (Bld) 67.3 % Normal [facility] Comment on above: Order Comment: Speci men Type: BLOOD SPECIMENOrdering Facility: [facility] Address: [address] [place] [address] Performed By: #### 5 7021-8 ####[facility]ATORYCLIA [id number] [place] [address] [place] Nucleated RBC (Bld) [#/Vol] 0.02 10*3/uL High <0.01 [facility] Comment on above: Order Comment: Speci men Type: BLOOD SPECIMENOrdering Facility: [facility] Address: [address] [place] [address] Performed By: #### 5 7021-8 ####[facility] LABORATORYCLIA [id number] [address] [place] Nucleated RBC/100 WBC (Bld) [Ratio] 0.2 /100 WBC Normal [facility] Comment on above: Order Comment: Speci men Type: BLOOD SPECIMENOrdering Facility: [facility] Address: [address] [place] [address] Performed By: #### 5 7021-8 ####[facility] LABORATORYCLIA [id number] [address] [place] Platelet mean volume (Bld) [Entitic vol] 9.5 fL Normal 9.0-12.7 [facility] Comment on above: Order Comment: Speci men Type: BLOOD SPECIMENOrdering Facility: [facility] Address: [address] [place] [address] Performed By: #### 5 7021-8 ####[facility] LABORATORYCLIA [id number] [address] [place] Platelets (Bld) [#/Vol] 337 10*3/uL Normal 150-400 [facility] Comment on above: Order Comment: Speci men Type: BLOOD SPECIMENOrdering Facility: [facility] Address: [address] [place] [address] Performed By: #### 5 7021-8 ####[facility] LABORATORYCLIA [id number] [address] [place] RBC (Bld) [#/Vol] 3.89 10*6/uL Low 3.90-5.20 [facility] Comment on above: Order Comment: Speci men Type: BLOOD SPECIMENOrdering Facility: [facility] Address: [address] [place] [address] Performed By: #### 5 7021-8 ####[facility] LABORATORYCLIA [id number] [place] [address] [place] WBC (Bld) [#/Vol] 10.50 10*3/uL Normal 3.70-11.00 [facility] Comment on above: Order Comment: Speci men Type: BLOOD SPECIMENOrdering Facility: [facility] Address: [address] [place] [address] Performed By: #### 5 7021-8 ####[facility] LABORATORYCLIA [id number] [address] [place] ED Triage Noteon 01-12-2023 ED Triage Note Normal [facility] CNPNon 01-06-2023 CNPN Normal [facility] CNCOon 01-03-2023 CNCO Letter Text Normal [facility] Basic metabolic 2000 panelon 01-01-2023 Anion gap [Moles/Vol] 12 mmol/L Normal 9-18 [facility] Comment on above: Order Comment: Speci men Type: BLOOD SPECIMENOrdering Facility: [facility] Address: [address] [place] [address] Performed By: #### 2 4321-2 ####[facility] LABORATORYCLIA [id number] [place] [address] [place] Calcium [Mass/Vol] 9.1 mg/dL Normal 8.5-10.2 [facility] Comment on above: Order Comment: Speci men Type: BLOOD SPECIMENOrdering Facility: [facility] Address: [address] [place] [address] Performed By: #### 2 4321-2 ####[facility]ATORYCLIA [id number] [place] [address] [place] Chloride [Moles/Vol] 97 mmol/L Normal 97-105 [facility] Comment on above: Order Comment: Speci men Type: BLOOD SPECIMENOrdering Facility: [facility] Address: [address] [place] [address] Performed By: #### 2 4321-2 ####[facility]ATORYCLIA [id number] [place] [address] [place] CO2 [Moles/Vol] 29 mmol/L Normal 22-30 [facility] Comment on above: Order Comment: Speci men Type: BLOOD SPECIMENOrdering Facility: [facility] Address: [address] [place] [address] Performed By: #### 2 4321-2 ####[facility]ORATORYCLIA [id number] [place] [address] [place] Creatinine [Mass/Vol] 0.90 mg/dL Normal 0.58-0.96 [facility] Comment on above: Order Comment: Speci men Type: BLOOD SPECIMENOrdering Facility: [facility] Address: [place] [address] Performed By: #### 2 4321-2 ####[facility]PITALIA [id number] [place] [id number] [facility] [place] ESTIMATED GLOMERULAR FILTRATION RATE 81 mL/min/1.73m??? Normal >=60 [facility] Comment on above: Order Comment: Roberto men Type: BLOOD SPECIMENOrdering Facility: [facility] Address: [address] [place] [address] Result Comment: Gayle mated Glomerular Filtration Rate [...] actual GFR. Performed By: #### 2 4321-2 ####[facility] HOSPITALIA [id number] [place] [address] [place] Glucose [Mass/Vol] 151 mg/dL High 74-99 [facility] Comment on above: Order Comment: Roberto talbot Type: BLOOD SPECIMENOrdering Facility: [facility] Address: [address] [place] [address] Result Comment: The [place] [employer] [...] 2016.39(Suppl 1). Performed By: #### 2 4321-2 ####[facility] LABORATORYCLIA [id number] [place] [address] [place] Potassium [Moles/Vol] 4.2 mmol/L Normal 3.7-5.1 [facility] Comment on above: Order Comment: Speci men Type: BLOOD SPECIMENOrdering Facility: [facility] Address: [address] [address] Performed By: #### 2 4321-2 ####[facility]ORATORYCLIA [id number] [place] [address] [place] Sodium [Moles/Vol] 138 mmol/L Normal 136-144 [facility] Comment on above: Order Comment: Speci men Type: BLOOD SPECIMENOrdering Facility: [facility] Address: [address] [place] [address] Performed By: #### 2 4321-2 ####[facility]ORATORYCLIA [id number] [address] [place] Urea nitrogen [Mass/Vol] 21 mg/dL Normal 7-21 [facility] Comment on above: Order Comment: Speci men Type: BLOOD SPECIMENOrdering Facility: [facility] Address: [address] [place] [address] Performed By: #### 2 4321-2 ####[facility] LABORATORYCLIA [id number] [address] [place] CASE MANAGEMon 01-01-2023 CASE MANAGEM Normal [facility] CBC panel Auto (Bld)on 01-01 Erythrocyte distribution width (RBC) [Ratio] 15.8 % High 11.5-15.0 [facility] Comment on above: Order Comment: Speci men Type: BLOOD SPECIMENOrdering Facility: [facility] Address: [address] [place] [address] Performed By: #### 5 8410-2 ####[facility] LABORATORYCLIA [id number] [address] [place] Hematocrit (Bld) [Volume fraction] 34.8 % Low 36.0-46.0 [facility] Comment on above: Order Comment: Speci men Type: BLOOD SPECIMENOrdering Facility: [facility] Address: [address] [place] [address] Performed By: #### 5 8410-2 ####[facility]ORATORYCLIA [id number] [address] Hemoglobin (Bld) [Mass/Vol] 10.2 g/dL Low 11.5-15.5 [facility] Comment on above: Order Comment: Speci men Type: BLOOD SPECIMENOrdering Facility: [facility] Address: [address] [place] [address] Performed By: #### 5 8410-2 ####[facility] LABORATORYCLIA [id number] [address] MCH (RBC) [Entitic mass] 27.8 pg Normal 26.0-34.0 [facility] Comment on above: Order Comment: Speci men Type: BLOOD SPECIMENOrdering Facility: [facility] Address: [address] [place] [address] Performed By: #### 5 8410-2 ####[facility]ORATORYCLIA [id number] [address] MCHC (RBC) [Mass/Vol] 29.3 g/dL Low 30.5-36.0 [facility] Comment on above: Order Comment: Speci men Type: BLOOD SPECIMENOrdering Facility: [facility] Address: [address] [place] [address] Performed By: #### 5 8410-2 ####[facility]ORATORYCLIA [id number] [address] MCV (RBC) [Entitic vol] 94.8 fL Normal 80.0-100.0 [facility] Comment on above: Order Comment: Speci men Type: BLOOD SPECIMENOrdering Facility: [facility] Address: [address] [place] [address] Performed By: #### 5 8410-2 ####[facility]ORATORYCLIA [id number] [place] [address] [place] Nucleated RBC (Bld) [#/Vol] 0.02 10*3/uL High <0.01 [facility] Comment on above: Order Comment: Speci men Type: BLOOD SPECIMENOrdering Facility: [facility] Address: [address] [place] [address] Performed By: #### 5 8410-2 ####[facility]ORATORYCLIA [id number] [place] [address] [place] Platelet mean volume (Bld) [Entitic vol] 9.4 fL Normal 9.0-12.7 [facility] Comment on above: Order Comment: Speci men Type: BLOOD SPECIMENOrdering Facility: [facility] Address: [address] [place] [address] Performed By: #### 5 8410-2 ####[facility]ATORYCLIA [id number] [address] [place] Platelets (Bld) [#/Vol] 426 10*3/uL High 150-400 [facility] Comment on above: Order Comment: Speci men Type: BLOOD SPECIMENOrdering Facility: [facility] Address: [address] [place] [address] Performed By: #### 5 8410-2 ####[facility]ORATORYCLIA [id number] [place] [address] [place] RBC (Bld) [#/Vol] 3.67 10*6/uL Low 3.90-5.20 [facility] Comment on above: Order Comment: Speci men Type: BLOOD SPECIMENOrdering Facility: [facility] Address: [address] [place] [address] Performed By: #### 5 8410-2 ####[facility]ORATORYCLIA [id number] [place] [address] [place] WBC (Bld) [#/Vol] 13.51 10*3/uL High 3.70-11.00 [facility] Comment on above: Order Comment: Speci men Type: BLOOD SPECIMENOrdering Facility: [facility] Address: [address] [place] [address] Performed By: #### 5 8410-2 ####[facility]ATORYCLIA [id number] [place] [address] [place] CNDSon 01-01-2023 CNDS Normal [facility] CONSULT PROGon 01-01-2023 CONSULT PROG Normal [facility] THERAPY NTon 01-01-2023 THERAPY NT Normal [facility] THERAPY NT Normal [facility] ALLIED HEALTHon 12-31-2022 ALLIED HEALTH Normal [facility] ALLIED HEALTH Normal [facility] Basic metabolic 2000 panelon 12-31-2022 Anion gap [Moles/Vol] 14 mmol/L Normal 9-18 [facility] Comment on above: Order Comment: Speci men Type: BLOOD SPECIMENOrdering Facility: [facility] Address: [address] [place] [address] Performed By: #### 1 9123-9, 20417-0, 2776-12 ####[facility]ORATORYCLIA [id number] [place] [address] [place] Calcium [Mass/Vol] 9.4 mg/dL Normal 8.5-10.2 [facility] Comment on above: Order Comment: Speci men Type: BLOOD SPECIMENOrdering Facility: [facility] Address: [address] [place] [address] Performed By: #### 1 9123-9, 36093-0, 2776-12 ####[facility]ORATORYCLIA [id number] [place] [address] [place] Chloride [Moles/Vol] 94 mmol/L Low 97-105 [facility] Comment on above: Order Comment: Speci men Type: BLOOD SPECIMENOrdering Facility: [facility] Address: [address] [place] [address] Performed By: #### 1 9123-9, 22854-4, 2776- ####[facility]ATORYCLIA [id number] [place] [address] [place] CO2 [Moles/Vol] 29 mmol/L Normal 22-30 [facility] Comment on above: Order Comment: Speci men Type: BLOOD SPECIMENOrdering Facility: [facility] Address: [address] [place] [address] Performed By: #### 1 9123-9, 92644-4, 2776-12 ####[facility]ATORYCLIA [id number] [place] [address] [place] Creatinine [Mass/Vol] 0.98 mg/dL High 0.58-0.96 [facility] Comment on above: Order Comment: Speci men Type: BLOOD SPECIMENOrdering Facility: [facility] Address: [address] [place] [address] Performed By: #### 1 9123-9, 75247-2, 2776-12 ####[facility]PITALCLIA [id number] [place] [address] [place] ESTIMATED GLOMERULAR FILTRATION RATE 73 mL/min/1.73m??? Normal >=60 [facility] Comment on above: Order Comment: Speci men Type: BLOOD SPECIMENOrdering Facility: [facility] Address: [address] [place] [address] Result Comment: Gayle mated Glomerular Filtration Rate [...] actual GFR. Performed By: #### 1 9123-9, 76077-5, 2776-12 ####[facility]ATORYCLIA [id number] [place] [address] [place] Glucose [Mass/Vol] 173 mg/dL High 74-99 [facility] Comment on above: Order Comment: Speci men Type: BLOOD SPECIMENOrdering Facility: [facility] Address: [address] [place] [address] Result Comment: The [place] [employer] [...] 2016.39(Suppl 1). Performed By: #### 1 9123-9, 04519-0, 2776- ####[facility]ATORYCLIA [id number] [place] [address] [place] Potassium [Moles/Vol] 3.9 mmol/L Normal 3.7-5.1 [facility] Comment on above: Order Comment: Speci men Type: BLOOD SPECIMENOrdering Facility: [facility] Address: [address] [place] [address] Performed By: #### 1 9123-9, 09771-8, 2776-12 ####[facility]ATORYCLIA [id number] [place] [address] [place] Sodium [Moles/Vol] 137 mmol/L Normal 136-144 [facility] Comment on above: Order Comment: Speci men Type: BLOOD SPECIMENOrdering Facility: [facility] Address: [address] [place] [address] Performed By: #### 1 9123-9, 80562-1, 2776-12 ####[facility]ATORYCLIA [id number] [place] [address] [place] Urea nitrogen [Mass/Vol] 19 mg/dL Normal 7-21 [facility] Comment on above: Order Comment: Speci men Type: BLOOD SPECIMENOrdering Facility: [facility] Address: [address] [place] [address] Performed By: #### 1 9123-9, 27674-5, 2776- ####[facility]ORATORYCLIA [id number] [address] CBC panel Auto (Bld)on 12-31 Erythrocyte distribution width (RBC) [Ratio] 15.9 % High 11.5-15.0 [facility] Comment on above: Order Comment: Speci men Type: BLOOD SPECIMENOrdering Facility: [facility] Address: [address] [place] [address] Performed By: #### 5 8410-2 ####[facility]ORATORYCLIA [id number] [address] Hematocrit (Bld) [Volume fraction] 34.1 % Low 36.0-46.0 [facility] Comment on above: Order Comment: Speci men Type: BLOOD SPECIMENOrdering Facility: [facility] Address: [address] [place] [address] Performed By: #### 5 8410-2 ####[facility]ORATORYCLIA [id number] [address] Hemoglobin (Bld) [Mass/Vol] 10.1 g/dL Low 11.5-15.5 [facility] Comment on above: Order Comment: Speci men Type: BLOOD SPECIMENOrdering Facility: [facility] Address: [address] [place] [address] Performed By: #### 5 8410-2 ####[facility]ORATORYCLIA [id number] [address] MCH (RBC) [Entitic mass] 27.8 pg Normal 26.0-34.0 [facility] Comment on above: Order Comment: Speci men Type: BLOOD SPECIMENOrdering Facility: [facility] Address: [address] [place] [address] Performed By: #### 5 8410-2 ####[facility]ORATORYCLIA [id number] [address] [place] MCHC (RBC) [Mass/Vol] 29.6 g/dL Low 30.5-36.0 [facility] Comment on above: Order Comment: Speci men Type: BLOOD SPECIMENOrdering Facility: [facility] Address: [address] [place] [address] Performed By: #### 5 8410-2 ####[facility]ORATORYCLIA [id number] [address] [place] [facility] MCV (RBC) [Entitic vol] 93.9 fL Normal 80.0-100.0 [facility] Comment on above: Order Comment: Speci men Type: BLOOD SPECIMENOrdering Facility: [facility] Address: [address] [place] [address] Performed By: #### 5 8410-2 ####[facility]ORATORYCLIA [id number] [address] [place] Nucleated RBC (Bld) [#/Vol] 10*3/uL Normal <0.01 [facility] Comment on above: Order Comment: Speci men Type: BLOOD SPECIMENOrdering Facility: [facility] Address: [address] [place] [address] Performed By: #### 5 8410-2 ####[facility]ATORYCLIA [id number] [address] Platelet mean volume (Bld) [Entitic vol] 9.2 fL Normal 9.0-12.7 [facility] Comment on above: Order Comment: Speci men Type: BLOOD SPECIMENOrdering Facility: [facility] Address: [address] [place] [address] Performed By: #### 5 8410-2 ####[facility]ORATORYCLIA [id number] [address] [place] Platelets (Bld) [#/Vol] 435 10*3/uL High 150-400 [facility] Comment on above: Order Comment: Speci men Type: BLOOD SPECIMENOrdering Facility: [facility] Address: [address] [place] [address] Performed By: #### 5 8410-2 ####[facility] LABORATORYCLIA [id number] [place] [address] [place] RBC (Bld) [#/Vol] 3.63 10*6/uL Low 3.90-5.20 [facility] Comment on above: Order Comment: Speci men Type: BLOOD SPECIMENOrdering Facility: [facility] Address: [address] [place] [address] Performed By: #### 5 8410-2 ####[facility]ORATORYCLIA [id number] [place] [address] [place] WBC (Bld) [#/Vol] 15.84 10*3/uL High 3.70-11.00 [facility] Comment on above: Order Comment: Speci men Type: BLOOD SPECIMENOrdering Facility: [facility] Address: [address] [place] [address] Performed By: #### 5 8410-2 ####[facility] LABORATORYCLIA [id number] [address] [place] CONSULT PROGon 12-31-2022 CONSULT PROG Normal [facility] CONSULT PROG Normal [facility] Calcium.ionized [Moles/Vol]o n 12-31-2022 Calcium.ionized (BldV) [Mass/Vol] 1.16 mmol/L Normal 1.08-1.30 [facility] Comment on above: Order Comment: Speci men Type: BLOOD SPECIMENOrdering Facility: [facility] Address: [address] [place] [address] Performed By: #### 1 995-0 ####[facility]ATORYCLIA [id number] [address] Calcium.ionized adjusted to pH 7.4 (Bld) [Moles/Vol] 1.12 mmol/L Normal 1.08-1.30 [facility] Comment on above: Order Comment: Speci men Type: BLOOD SPECIMENOrdering Facility: [facility] Address: [address] [place] [address] Performed By: #### 1 995-0 ####[facility]ORATORYCLIA [id number] [address] [place] Magnesium SerPl-mCncon 12-31 Magnesium [Mass/Vol] 1.5 mg/dL Low 1.7-2.3 [facility] Comment on above: Order Comment: Speci men Type: BLOOD SPECIMENOrdering Facility: [facility] Address: [address] [place] [address] Performed By: #### 1 9123-9, 07543-2, 2777-1 ####[facility]ORATORYCLIA [id number] [address] [place] NURSING PROGon 12-31-2022 NURSING PROG Normal [facility] Phosphate SerPl-mCncon 12-31 Phosphate [Mass/Vol] 3.5 mg/dL Normal 2.7-4.8 [facility] Comment on above: Order Comment: Speci men Type: BLOOD SPECIMENOrdering Facility: [facility] Address: [place] [address] Performed By: #### 1 9123-9, 45092-4, 2777- ####[facility]ORATORYCLIA [id number] [address] [place] THERAPY NTon 12-31-2022 THERAPY NT Normal [facility] XR CHEST 1V FRONTALon 2022 XR CHEST 1V FRONTAL Normal [facility] ALLIED HEALTHon 12-30-2022 ALLIED HEALTH Normal [facility] ARTERIAL BLOOD GASESon 12-30 Base excess Calc (Bld) [Moles/Vol] 8 mmol/L High 0-2 [facility] Comment on above: Order Comment: Speci men Type: ARTERIAL BLOOD SPECIMENOrdering Facility: [facility] Address: [address] [place] [address] Performed By: #### A LLBG ####[facility] LABORATORYCLIA [id number] [address] [place] Body temperature 97.34 [degF] Normal [facility] Comment on above: Order Comment: Speci men Type: ARTERIAL BLOOD SPECIMENOrdering Facility: [facility] Address: [address] [place] [address] Performed By: #### A LLBG ####[facility]ATORYCLIA [id number] [address] Calcium.ionized (BldV) [Mass/Vol] 1.19 mmol/L Normal 1.08-1.30 [facility] Comment on above: Order Comment: Speci men Type: ARTERIAL BLOOD SPECIMENOrdering Facility: [facility] Address: [address] [place] [address] Performed By: #### A LLBG ####[facility]ATORYCLIA [id number] [address] Calcium.ionized adjusted to pH 7.4 (BldA) [Moles/Vol] 1.20 mmol/L Normal 1.08-1.30 [facility] Comment on above: Order Comment: Speci men Type: ARTERIAL BLOOD SPECIMENOrdering Facility: [facility] Address: [address] [place] [address] Performed By: #### A LLBG ####[facility]ORATORYCLIA [id number] [address] Carboxyhemoglobin (BldA) [Mass fraction] 1.3 % Normal 0.0-2.0 [facility] Comment on above: Order Comment: Speci men Type: ARTERIAL BLOOD SPECIMENOrdering Facility: [facility] Address: [address] [place] [address] Result Comment: Carb oxyhemoglobin Reference Range for Smokers: 2.0-8.0% Performed By: #### A LLBG ####[facility]ATORYCLIA [id number] [address] Chloride [Moles/Vol] 100 mmol/L Low 102-109 [facility] Comment on above: Order Comment: Speci men Type: ARTERIAL BLOOD SPECIMENOrdering Facility: [facility] Address: [address] [place] [address] Performed By: #### A LLBG ####[facility] LABORATORYCLIA [id number] [address] [place] CO2 (Bld) [Partial pressure] 51 mm Hg High 36-46 [facility] Comment on above: Order Comment: Speci men Type: ARTERIAL BLOOD SPECIMENOrdering Facility: [facility] Address: [address] [place] [address] Performed By: #### A LLBG ####[facility]ORATORYCLIA [id number] [place] [address] [place] CO2 [Moles/Vol] 30 mmol/L High 22-28 [facility] Comment on above: Order Comment: Speci men Type: ARTERIAL BLOOD SPECIMENOrdering Facility: [facility] Address: [address] [place] [address] Performed By: #### A LLBG ####[facility]ORATORYCLIA [id number] [address] [place] CO2 adjusted to patient's actual temperature (Bld) [Partial pressure] 49 mmHg High 36-46 [facility] Comment on above: Order Comment: Speci men Type: ARTERIAL BLOOD SPECIMENOrdering Facility: [facility] Address: [address] [place] [address] Performed By: #### A LLBG ####[facility]ATORYCLIA [id number] [place] [address] [place] Glucose [Mass/Vol] 168 mg/dL High 60-105 [facility] Comment on above: Order Comment: Speci men Type: ARTERIAL BLOOD SPECIMENOrdering Facility: [facility] Address: [address] [address] Performed By: #### A LLBG ####[facility]ATORYCLIA [id number] [place] [address] [place] HCO3 (Bld) [Moles/Vol] 33 mmol/L High 22-26 [facility] Comment on above: Order Comment: Speci men Type: ARTERIAL BLOOD SPECIMENOrdering Facility: [facility] Address: [address] [address] Performed By: #### A LLBG ####[facility]ATORYCLIA [id number] [address] [place] Hematocrit (Bld) [Volume fraction] 30.2 % Low 36.0-46.0 [facility] Comment on above: Order Comment: Speci men Type: ARTERIAL BLOOD SPECIMENOrdering Facility: [facility] Address: [address] [place] [address] Performed By: #### A LLBG ####[facility] LABORATORYCLIA [id number] [address] [place] Hemoglobin (Bld) [Mass/Vol] 9.8 g/dL Low 11.5-15.5 [facility] Comment on above: Order Comment: Speci men Type: ARTERIAL BLOOD SPECIMENOrdering Facility: [facility] Address: [address] [place] [address] Performed By: #### A LLBG ####[facility] LABORATORYCLIA [id number] [address] Lactate [Moles/Vol] 0.8 mmol/L Normal 0.5-2.2 [facility] Comment on above: Order Comment: Speci men Type: ARTERIAL BLOOD SPECIMENOrdering Facility: [facility] Address: [address] [place] [address] Performed By: #### A LLBG ####[facility] LABORATORYCLIA [id number] [address] [place] Methemoglobin (Bld) [Mass fraction] 1.0 % Normal 0.0-1.5 [facility] Comment on above: Order Comment: Speci men Type: ARTERIAL BLOOD SPECIMENOrdering Facility: [facility] Address: [address] [place] [address] Performed By: #### A LLBG ####[facility] LABORATORYCLIA [id number] [address] [place] O2 THERAPY Ventilator Normal [facility] Comment on above: Order Comment: Speci men Type: ARTERIAL BLOOD SPECIMENOrdering Facility: [facility] Address: [address] [place] [address] Performed By: #### A LLBG ####[facility]ORATORYCLIA [id number] [address] Oxygen (Bld) [Partial pressure] 72 mm Hg Low 85-95 [facility] Comment on above: Order Comment: Speci men Type: ARTERIAL BLOOD SPECIMENOrdering Facility: [facility] Address: [address] [place] [address] Performed By: #### A LLBG ####[facility] LABORATORYCLIA [id number] [address] Oxygen adjusted to patient's actual temperature (Bld) [Partial pressure] 69 mmHg Low 85-95 [facility] Comment on above: Order Comment: Speci men Type: ARTERIAL BLOOD SPECIMENOrdering Facility: [facility] Address: [address] [place] [address] Performed By: #### A LLBG ####[facility]ORATORYCLIA [id number] [address] Oxyhemoglobin (BldA) [Mass fraction] 91 % Low 95-98 [facility] Comment on above: Order Comment: Speci men Type: ARTERIAL BLOOD SPECIMENOrdering Facility: [facility] Address: [address] [place] [address] Performed By: #### A LLBG ####[facility]ORATORYCLIA [id number] [address] [place] pH (Bld) 7.42 [pH] Normal 7.35-7.45 [facility] Comment on above: Order Comment: Speci men Type: ARTERIAL BLOOD SPECIMENOrdering Facility: [facility] Address: [address] [place] [address] Performed By: #### A LLBG ####[facility]ORATORYCLIA [id number] [address] pH adjusted to patient's actual temperature (Bld) 7.43 Normal 7.35-7.45 [facility] Comment on above: Order Comment: Speci men Type: ARTERIAL BLOOD SPECIMENOrdering Facility: [facility] Address: [address] [place] [address] Performed By: #### A LLBG ####[facility]ORATORYCLIA [id number] [address] STATES OF [facility] Potassium [Moles/Vol] 3.9 mmol/L Normal 3.5-5.0 [facility] Comment on above: Order Comment: Speci men Type: ARTERIAL BLOOD SPECIMENOrdering Facility: [facility] Address: [address] [place] [address] Performed By: #### A LLBG ####[facility]ATORYCLIA [id number] [address] [place] Sodium [Moles/Vol] 137 mmol/L Normal 136-144 [facility] Comment on above: Order Comment: Speci men Type: ARTERIAL BLOOD SPECIMENOrdering Facility: [facility] Address: [address] [place] [address] Performed By: #### A LLBG ####[facility] LABORATORYCLIA [id number] [place] [address] [place] Basic metabolic 2000 panelon 12-30-2022 Anion gap [Moles/Vol] 11 mmol/L Normal 9-18 [facility] Comment on above: Order Comment: Speci men Type: BLOOD SPECIMENOrdering Facility: [facility] Address: [address] [place] [address] Performed By: #### 2 4321-2, 2776-12, ####[facility]ORATORYCLIA [id number] [place] [address] [place] Calcium [Mass/Vol] 9.4 mg/dL Normal 8.5-10.2 [facility] Comment on above: Order Comment: Speci men Type: BLOOD SPECIMENOrdering Facility: [facility] Address: [address] [place] [address] Performed By: #### 2 4321-2, 27705-31, ####[facility]ORATORYCLIA [id number] [address] OF [facility] Chloride [Moles/Vol] 94 mmol/L Low 97-105 [facility] Comment on above: Order Comment: Speci men Type: BLOOD SPECIMENOrdering Facility: [facility] Address: [address] [place] [address] Performed By: #### 2 4321-2, 2777-1, ####[facility]ORATORYCLIA [id number] [address] OF [facility] CO2 [Moles/Vol] 33 mmol/L High 22-30 [facility] Comment on above: Order Comment: Speci men Type: BLOOD SPECIMENOrdering Facility: [facility] Address: [address] [place] [address] Performed By: #### 2 4321-2, 2777-1, ####[facility]ITALCLIA [id number] [address] Creatinine [Mass/Vol] 1.13 mg/dL High 0.58-0.96 [facility] Comment on above: Order Comment: Speci men Type: BLOOD SPECIMENOrdering Facility: [facility] Address: [address] [place] [address] Performed By: #### 2 4321-2, 277-, ####[facility]ITALCLIA [id number] [address] ESTIMATED GLOMERULAR FILTRATION RATE 61 mL/min/1.73m??? Normal >=60 [facility] Comment on above: Order Comment: Speci men Type: BLOOD SPECIMENOrdering Facility: [facility] Address: [address] [place] [address] Result Comment: Gayle mated Glomerular Filtration Rate [...] GFR. Performed By: #### 2 4321-2, 2777-, ####[facility]ORATORYCLIA [id number] [place] [address] [place] Glucose [Mass/Vol] 155 mg/dL High 74-99 [facility] Comment on above: Order Comment: Speci men Type: BLOOD SPECIMENOrdering Facility: [facility] Address: [address] [place] [address] Result Comment: [employer] [place] [employer] [...] 1). Performed By: #### 2 4321-2, 2776-12, ####[facility]ORATORYCLIA [id number] [place] [address] [place] Potassium [Moles/Vol] 3.4 mmol/L Low 3.7-5.1 [facility] Comment on above: Order Comment: Speci men Type: BLOOD SPECIMENOrdering Facility: [facility] Address: [address] Performed By: #### 2 4321-2, 2777, ####[facility]ORATORYCLIA [id number] [place] [address] [place] Sodium [Moles/Vol] 138 mmol/L Normal 136-144 [facility] Comment on above: Order Comment: Roberto men Type: BLOOD SPECIMENOrdering Facility: [facility] Address: [place] [address] Performed By: #### 2 4321-2, 277-, ####[facility]ORATORYCLIA [id number] [address] [place] Urea nitrogen [Mass/Vol] 22 mg/dL High 7-21 [facility] Comment on above: Order Comment: Speci men Type: BLOOD SPECIMENOrdering Facility: [facility] Address: [address] [place] [address] Performed By: #### 2 4321-2, 2776-12, ####[facility]ORATORYCLIA [id number] [address] [place] CASE MANAGEMon 12-30-2022 CASE MANAGEM Normal [facility] CBC panel Auto (Bld)on 12-30 Erythrocyte distribution width (RBC) [Ratio] 16.1 % High 11.5-15.0 [facility] Comment on above: Order Comment: Speci men Type: BLOOD SPECIMENOrdering Facility: [facility] Address: [address] [place] [address] Performed By: #### 5 8410-2 ####[facility]ORATORYCLIA [id number] [address] [place] Hematocrit (Bld) [Volume fraction] 30.3 % Low 36.0-46.0 [facility] Comment on above: Order Comment: Speci men Type: BLOOD SPECIMENOrdering Facility: [facility] Address: [address] [place] [address] Performed By: #### 5 8410-2 ####[facility]ORATORYCLIA [id number] [address] [place] Hemoglobin (Bld) [Mass/Vol] 9.0 g/dL Low 11.5-15.5 [facility] Comment on above: Order Comment: Speci men Type: BLOOD SPECIMENOrdering Facility: [facility] Address: [address] [place] [address] Performed By: #### 5 8410-2 ####[facility]ORATORYCLIA [id number] [address] MCH (RBC) [Entitic mass] 27.8 pg Normal 26.0-34.0 [facility] Comment on above: Order Comment: Speci men Type: BLOOD SPECIMENOrdering Facility: [facility] Address: [address] [place] [address] Performed By: #### 5 8410-2 ####[facility]ORATORYCLIA [id number] [address] MCHC (RBC) [Mass/Vol] 29.7 g/dL Low 30.5-36.0 [facility] Comment on above: Order Comment: Speci men Type: BLOOD SPECIMENOrdering Facility: [facility] Address: [address] [place] [address] Performed By: #### 5 8410-2 ####[facility]ORATORYCLIA [id number] [address] MCV (RBC) [Entitic vol] 93.5 fL Normal 80.0-100.0 [facility] Comment on above: Order Comment: Speci men Type: BLOOD SPECIMENOrdering Facility: [facility] Address: [address] [place] [address] Performed By: #### 5 8410-2 ####[facility]ORATORYCLIA [id number] [address] Nucleated RBC (Bld) [#/Vol] 10*3/uL Normal <0.01 [facility] Comment on above: Order Comment: Speci men Type: BLOOD SPECIMENOrdering Facility: [facility] Address: [address] [place] [address] Performed By: #### 5 8410-2 ####[facility]ORATORYCLIA [id number] [address] Platelet mean volume (Bld) [Entitic vol] 9.5 fL Normal 9.0-12.7 [facility] Comment on above: Order Comment: Speci men Type: BLOOD SPECIMENOrdering Facility: [facility] Address: [address] [place] [address] Performed By: #### 5 8410-2 ####[facility]ORATORYCLIA [id number] [address] OF [facility] Platelets (Bld) [#/Vol] 401 10*3/uL High 150-400 [facility] Comment on above: Order Comment: Speci men Type: BLOOD SPECIMENOrdering Facility: [facility] Address: [address] [place] [address] Performed By: #### 5 8410-2 ####[facility]ORATORYCLIA [id number] [address] OF [facility] RBC (Bld) [#/Vol] 3.24 10*6/uL Low 3.90-5.20 [facility] Comment on above: Order Comment: Speci men Type: BLOOD SPECIMENOrdering Facility: [facility] Address: [address] [place] [address] Performed By: #### 5 8410-2 ####[facility]ORATORYCLIA [id number] [address] [place] WBC (Bld) [#/Vol] 14.20 10*3/uL High 3.70-11.00 [facility] Comment on above: Order Comment: Speci men Type: BLOOD SPECIMENOrdering Facility: [facility] Address: [address] [place] [address] Performed By: #### 5 8410-2 ####[facility]ORATORYCLIA [id number] [address] OF [facility] CONSULTon 12-30-2022 CONSULT Normal [facility] CONSULT PROGon 12-30-2022 CONSULT PROG Normal [facility] Calcium.ionized [Moles/Vol]o n 12-30-2022 Calcium.ionized (BldV) [Mass/Vol] 1.19 mmol/L Normal 1.08-1.30 [facility] Comment on above: Order Comment: Speci men Type: BLOOD SPECIMENOrdering Facility: [facility] Address: [address] [place] [address] Performed By: #### 1 995-0 ####[facility]ATORYCLIA [id number] [address] Calcium.ionized adjusted to pH 7.4 (Bld) [Moles/Vol] 1.23 mmol/L Normal 1.08-1.30 [facility] Comment on above: Order Comment: Speci men Type: BLOOD SPECIMENOrdering Facility: [facility] Address: [address] [place] [address] Performed By: #### 1 995-0 ####[facility]ORATORYCLIA [id number] [address] Laboratory - Microbiology an d Antimicrobial susceptibilityOrdered By: Dr. Kaiser on 12-30-2022 Bacteria identified Cx Nom (Bld) No growth in 5 days. [facility] Magnesium [facility] Magnesium [Mass/Vol] 1.7 mg/dL Normal 1.7-2.3 [facility] Comment on above: Order Comment: Speci men Type: BLOOD SPECIMENOrdering Facility: [facility] Address: [address] [place] [address] Performed By: #### 2 4321-2, 2776-12, ####[facility]ORATORYCLIA [id number] [address] [place] NUTRITIONon 12-30-2022 NUTRITION Normal [facility] No Panel InformationOrdered By: Dr. Kaiser on 12-30-2022 No growth in 5 days. [facility] Phosphate SerPl-mCncon 12-30 Phosphate [Mass/Vol] 4.2 mg/dL Normal 2.7-4.8 [facility] Comment on above: Order Comment: Speci men Type: BLOOD SPECIMENOrdering Facility: [facility] Address: [address] [place] [address] Performed By: #### 2 4321-2, 2777-, ####[facility]ORATORYCLIA [id number] [place] [address] [place] XR CHEST 1V FRONTALon 2022 XR CHEST 1V FRONTAL Normal [facility] ALLIED HEALTHon 12-29-2022 ALLIED HEALTH Normal [facility] Bacteria Spec Resp Culton Bacteria identified Respiratory culture Nom (Unsp spec) CULTURE, RESPIRATORY: No growth 2 days GRAM STAIN: No organisms seen Many Polymorphonuclear leukocytes Rare Epithelial cells Normal [facility] Comment on above: Performed By: #### 3 2355-0 ####[facility] LABORATORYCLIA [id number] [place] [id number] [place] Basic metabolic 2000 panelon 12-29-2022 Anion gap [Moles/Vol] 10 mmol/L Normal 9-18 [facility] Comment on above: Order Comment: Speci men Type: BLOOD SPECIMENOrdering Facility: [facility] Address: [address] [place] [address] Performed By: #### 2 4321-2, , 2776-12 ####[facility]ITALCLIA [id number] [place] [address] [place] Calcium [Mass/Vol] 9.5 mg/dL Normal 8.5-10.2 [facility] Comment on above: Order Comment: Speci men Type: BLOOD SPECIMENOrdering Facility: [facility] Address: [address] [place] [address] Performed By: #### 2 4321-2, , 2776-12 ####[facility]ORATORYCLIA [id number] [place] [address] [place] Chloride [Moles/Vol] 94 mmol/L Low 97-105 [facility] Comment on above: Order Comment: Speci men Type: BLOOD SPECIMENOrdering Facility: [facility] Address: [address] [place] [address] Performed By: #### 2 4321-2, , 2776-12 ####[facility]ORATORYCLIA [id number] [place] [address] [place] CO2 [Moles/Vol] 33 mmol/L High 22-30 [facility] Comment on above: Order Comment: Speci men Type: BLOOD SPECIMENOrdering Facility: [facility] Address: [place] [address] Performed By: #### 2 4321-2, , 2776-12 ####[facility]ORATORYCLIA [id number] [place] [address] [place] Creatinine [Mass/Vol] 1.17 mg/dL High 0.58-0.96 [facility] Comment on above: Order Comment: Speci men Type: BLOOD SPECIMENOrdering Facility: [facility] Address: [address] [place] [address] Performed By: #### 2 4321-2, , 2776-12 ####[facility]ITALCLIA [id number] [address] OF [facility] ESTIMATED GLOMERULAR FILTRATION RATE 59 mL/min/1.73m??? Low >=60 [facility] Comment on above: Order Comment: Speci men Type: BLOOD SPECIMENOrdering Facility: [facility] Address: [address] [place] [address] Result Comment: Gayle mated Glomerular Filtration Rate [...] Performed By: #### 2 4321-2, , 2776-12 ####[facility]ORATORYCLIA [id number] [place] [address] [place] Glucose [Mass/Vol] 267 mg/dL High 74-99 [facility] Comment on above: Order Comment: Speci men Type: BLOOD SPECIMENOrdering Facility: [facility] Address: [address] [place] [address] Result Comment: The [place] [employer] [...] Performed By: #### 2 4321-2, , 2776-12 ####[facility]ORATORYCLIA [id number] [place] [address] [place] Potassium [Moles/Vol] 4.2 mmol/L Normal 3.7-5.1 [facility] Comment on above: Order Comment: Roberto talbot Type: BLOOD SPECIMENOrdering Facility: [facility] Address: [address] [address] Performed By: #### 2 4321-2, , 2776-12 ####[facility]ORATORYCLIA [id number] [place] [address] [place] Sodium [Moles/Vol] 137 mmol/L Normal 136-144 [facility] Comment on above: Order Comment: Roberto talbot Type: BLOOD SPECIMENOrdering Facility: [facility] Address: [address] [address] Performed By: #### 2 4321-2, , 2776-12 ####[facility]ORATORYCLIA [id number] [place] [address] [place] Urea nitrogen [Mass/Vol] 19 mg/dL Normal 7-21 [facility] Comment on above: Order Comment: Roberto talbot Type: BLOOD SPECIMENOrdering Facility: [facility] Address: [address] [address] Performed By: #### 2 4321-2, , 2776-12 ####[facility]ORATORYCLIA [id number] [address] STATES OF [facility] CBC panel Auto (Bld)on 12-29 Erythrocyte distribution width (RBC) [Ratio] 16.2 % High 11.5-15.0 [facility] Comment on above: Order Comment: Speci men Type: BLOOD SPECIMENOrdering Facility: [facility] Address: [address] [place] [address] Performed By: #### 5 8410-2 ####[facility]ATORYCLIA [id number] [address] Hematocrit (Bld) [Volume fraction] 29.8 % Low 36.0-46.0 [facility] Comment on above: Order Comment: Speci men Type: BLOOD SPECIMENOrdering Facility: [facility] Address: [address] [place] [address] Performed By: #### 5 8410-2 ####[facility]ATORYCLIA [id number] [address] Hemoglobin (Bld) [Mass/Vol] 8.9 g/dL Low 11.5-15.5 [facility] Comment on above: Order Comment: Speci men Type: BLOOD SPECIMENOrdering Facility: [facility] Address: [address] [place] [address] Performed By: #### 5 8410-2 ####[facility]ORATORYCLIA [id number] [address] STATES [facility] MCH (RBC) [Entitic mass] 28.0 pg Normal 26.0-34.0 [facility] Comment on above: Order Comment: Speci men Type: BLOOD SPECIMENOrdering Facility: [facility] Address: [address] [place] [address] Performed By: #### 5 8410-2 ####[facility]ATORYCLIA [id number] [address] [place] MCHC (RBC) [Mass/Vol] 29.9 g/dL Low 30.5-36.0 [facility] Comment on above: Order Comment: Speci men Type: BLOOD SPECIMENOrdering Facility: [facility] Address: [address] [place] [address] Performed By: #### 5 8410-2 ####[facility]ORATORYCLIA [id number] [address] [place] MCV (RBC) [Entitic vol] 93.7 fL Normal 80.0-100.0 [facility] Comment on above: Order Comment: Speci men Type: BLOOD SPECIMENOrdering Facility: [facility] Address: [address] [place] [address] Performed By: #### 5 8410-2 ####[facility]ORATORYCLIA [id number] [address] [place] Nucleated RBC (Bld) [#/Vol] 0.02 10*3/uL High <0.01 [facility] Comment on above: Order Comment: Speci men Type: BLOOD SPECIMENOrdering Facility: [facility] Address: [address] [place] [address] Performed By: #### 5 8410-2 ####[facility]ORATORYCLIA [id number] [address] STATES OF [facility] Platelet mean volume (Bld) [Entitic vol] 9.5 fL Normal 9.0-12.7 [facility] Comment on above: Order Comment: Speci men Type: BLOOD SPECIMENOrdering Facility: [facility] Address: [address] [place] [address] Performed By: #### 5 8410-2 ####[facility]ATORYCLIA [id number] [address] [place] Platelets (Bld) [#/Vol] 394 10*3/uL Normal 150-400 [facility] Comment on above: Order Comment: Speci men Type: BLOOD SPECIMENOrdering Facility: [facility] Address: [address] [address] Performed By: #### 5 8410-2 ####[facility]ORATORYCLIA [id number] [address] [place] RBC (Bld) [#/Vol] 3.18 10*6/uL Low 3.90-5.20 [facility] Comment on above: Order Comment: Speci men Type: BLOOD SPECIMENOrdering Facility: [facility] Address: [address] [place] [address] Performed By: #### 5 8410-2 ####[facility]ATORYCLIA [id number] [address] OF [facility] WBC (Bld) [#/Vol] 16.20 10*3/uL High 3.70-11.00 [facility] Comment on above: Order Comment: Speci men Type: BLOOD SPECIMENOrdering Facility: [facility] Address: [address] [place] [address] Performed By: #### 5 8410-2 ####[facility]ORATORYCLIA [id number] [address] CONSULT PROGon 12-29-2022 CONSULT PROG Normal [facility] CONSULT PROG Normal [facility] Calcium.ionized [Moles/Vol]o n 12-29-2022 Calcium.ionized (BldV) [Mass/Vol] 1.16 mmol/L Normal 1.08-1.30 [facility] Comment on above: Order Comment: Speci men Type: BLOOD SPECIMENOrdering Facility: [facility] Address: [address] [place] [address] Performed By: #### 1 995-0 ####[facility]ORATORYCLIA [id number] [address] Calcium.ionized adjusted to pH 7.4 (Bld) [Moles/Vol] 1.20 mmol/L Normal 1.08-1.30 [facility] Comment on above: Order Comment: Speci men Type: BLOOD SPECIMENOrdering Facility: [facility] Address: [address] [place] [address] Performed By: #### 1 995-0 ####[facility]ORATORYCLIA [id number] [place] [address] [place] Magnesium SerPl-mCncon 12-29 Magnesium [Mass/Vol] 1.6 mg/dL Low 1.7-2.3 [facility] Comment on above: Order Comment: Speci men Type: BLOOD SPECIMENOrdering Facility: [facility] Address: [address] [place] [address] Performed By: #### 2 4321-2, , 2776-12 ####[facility]ORATORYCLIA [id number] [place] [address] [place] Phosphate SerPl-mCncon 12-29 Phosphate [Mass/Vol] 4.6 mg/dL Normal 2.7-4.8 [facility] Comment on above: Order Comment: Speci men Type: BLOOD SPECIMENOrdering Facility: [facility] Address: [address] [place] [address] Performed By: #### 2 4321-2, , 2776-12 ####[facility]ATORYCLIA [id number] [place] [address] [place] XR CHEST 1V FRONTALon 2022 XR CHEST 1V FRONTAL Normal [facility] Basic metabolic 2000 panelon 12-28-2022 Anion gap [Moles/Vol] 11 mmol/L Normal 9-18 [facility] Comment on above: Order Comment: Speci men Type: BLOOD SPECIMENOrdering Facility: [facility] Address: [address] [place] [address] Performed By: #### 2 4321-2, 2776-12 ####[facility]ATORYCLIA [id number] [place] [address] [place] Calcium [Mass/Vol] 9.0 mg/dL Normal 8.5-10.2 [facility] Comment on above: Order Comment: Speci men Type: BLOOD SPECIMENOrdering Facility: [facility] Address: [address] [place] [address] Performed By: #### 2 4320-2, - ####[facility] LABORATORYCLIA [id number] [address] Chloride [Moles/Vol] 94 mmol/L Low 97-105 [facility] Comment on above: Order Comment: Speci men Type: BLOOD SPECIMENOrdering Facility: [facility] Address: [address] [place] [address] Performed By: #### 2 4321-2, 277- ####[facility] LABORATORYCLIA [id number] [address] CO2 [Moles/Vol] 30 mmol/L Normal 22-30 [facility] Comment on above: Order Comment: Speci men Type: BLOOD SPECIMENOrdering Facility: [facility] Address: [address] [place] [address] Performed By: #### 2 4321-2, 2776-12 ####[facility] LABORATORYCLIA [id number] [address] Creatinine [Mass/Vol] 1.10 mg/dL High 0.58-0.96 [facility] Comment on above: Order Comment: Speci men Type: BLOOD SPECIMENOrdering Facility: [facility] Address: [address] [place] [address] Performed By: #### 2 432-2, 2776-12 ####[facility]ORATORYCLIA [id number] [address] ESTIMATED GLOMERULAR FILTRATION RATE 63 mL/min/1.73m??? Normal >=60 [facility] Comment on above: Order Comment: Speci men Type: BLOOD SPECIMENOrdering Facility: [facility] Address: [address] [place] [address] Result Comment: Gayle mated Glomerular Filtration Rate [...] GFR. Performed By: #### 2 4321-2, 2777- ####[facility] LABORATORYCLIA [id number] [place] [address] [place] Glucose [Mass/Vol] 247 mg/dL High 74-99 [facility] Comment on above: Order Comment: Speci men Type: BLOOD SPECIMENOrdering Facility: [facility] Address: [address] [place] [address] Result Comment: The [place] [employer] [...] Care. 2016.39(Suppl 1). Performed By: #### 2 432-2, 2776-12 ####[facility]ORATORYCLIA [id number] [place] [address] [place] Potassium [Moles/Vol] 4.2 mmol/L Normal 3.7-5.1 [facility] Comment on above: Order Comment: Speci men Type: BLOOD SPECIMENOrdering Facility: [facility] Address: [address] [address] Performed By: #### 2 432-2, 27705-31 ####[facility]ORATORYCLIA [id number] [place] [address] [place] Sodium [Moles/Vol] 135 mmol/L Low 136-144 [facility] Comment on above: Order Comment: Migdaliai men Type: BLOOD SPECIMENOrdering Facility: [facility] Address: [address] [place] [address] Performed By: #### 2 432-2, 277-1 ####[facility]ATORYCLIA [id number] [address] STATES OF [facility] Urea nitrogen [Mass/Vol] 11 mg/dL Normal 7-21 [facility] Comment on above: Order Comment: Speci men Type: BLOOD SPECIMENOrdering Facility: [facility] Address: [address] [place] [address] Performed By: #### 2 4321-2, 2777-1 ####[facility]ATORYCLIA [id number] [address] OF [facility] CBC panel Auto (Bld)on 12-28 Erythrocyte distribution width (RBC) [Ratio] 16.3 % High 11.5-15.0 [facility] Comment on above: Order Comment: Speci men Type: BLOOD SPECIMENOrdering Facility: [facility] Address: [address] [place] [address] Performed By: #### 5 8410-2 ####[facility]ATORYCLIA [id number] [address] STATES OF [facility] Hematocrit (Bld) [Volume fraction] 29.8 % Low 36.0-46.0 [facility] Comment on above: Order Comment: Speci men Type: BLOOD SPECIMENOrdering Facility: [facility] Address: [address] [place] [address] Performed By: #### 5 8410-2 ####[facility]ORATORYCLIA [id number] [address] STATES OF [facility] Hemoglobin (Bld) [Mass/Vol] 8.9 g/dL Low 11.5-15.5 [facility] Comment on above: Order Comment: Speci men Type: BLOOD SPECIMENOrdering Facility: [facility] Address: [address] [place] [address] Performed By: #### 5 8410-2 ####[facility]ATORYCLIA [id number] [address] [place] MCH (RBC) [Entitic mass] 28.2 pg Normal 26.0-34.0 [facility] Comment on above: Order Comment: Speci men Type: BLOOD SPECIMENOrdering Facility: [facility] Address: [address] [place] [address] Performed By: #### 5 8410-2 ####[facility]ATORYCLIA [id number] [address] MCHC (RBC) [Mass/Vol] 29.9 g/dL Low 30.5-36.0 [facility] Comment on above: Order Comment: Speci men Type: BLOOD SPECIMENOrdering Facility: [facility] Address: [address] [place] [address] Performed By: #### 5 8410-2 ####[facility]ATORYCLIA [id number] [address] [place] MCV (RBC) [Entitic vol] 94.3 fL Normal 80.0-100.0 [facility] Comment on above: Order Comment: Speci men Type: BLOOD SPECIMENOrdering Facility: [facility] Address: [address] [place] [address] Performed By: #### 5 8410-2 ####[facility]ORATORYCLIA [id number] [address] Nucleated RBC (Bld) [#/Vol] 0.02 10*3/uL High <0.01 [facility] Comment on above: Order Comment: Speci men Type: BLOOD SPECIMENOrdering Facility: [facility] Address: [address] [place] [address] Performed By: #### 5 8410-2 ####[facility] LABORATORYCLIA [id number] [address] STATES [facility] Platelet mean volume (Bld) [Entitic vol] 9.4 fL Normal 9.0-12.7 [facility] Comment on above: Order Comment: Speci men Type: BLOOD SPECIMENOrdering Facility: [facility] Address: [address] [place] [address] Performed By: #### 5 8410-2 ####[facility]ITALCLIA [id number] [address] [place] Platelets (Bld) [#/Vol] 359 10*3/uL Normal 150-400 [facility] Comment on above: Order Comment: Speci men Type: BLOOD SPECIMENOrdering Facility: [facility] Address: [address] [place] [address] Performed By: #### 5 8410-2 ####[facility]ATORYCLIA [id number] [address] [place] RBC (Bld) [#/Vol] 3.16 10*6/uL Low 3.90-5.20 [facility] Comment on above: Order Comment: Speci men Type: BLOOD SPECIMENOrdering Facility: [facility] Address: [address] [place] [address] Performed By: #### 5 8410-2 ####[facility]ATORYCLIA [id number] [address] STATES OF [facility] WBC (Bld) [#/Vol] 16.86 10*3/uL High 3.70-11.00 [facility] Comment on above: Order Comment: Speci men Type: BLOOD SPECIMENOrdering Facility: [facility] Address: [address] [place] [address] Performed By: #### 5 8410-2 ####[facility]ORATORYCLIA [id number] [address] [place] CONSULT PROGon 12-28-2022 CONSULT PROG Normal [facility] CONSULT PROG Normal [facility] Calcium.ionized [Moles/Vol]o n 12-28-2022 Calcium.ionized (BldV) [Mass/Vol] 0.99 mmol/L Low 1.08-1.30 [facility] Comment on above: Order Comment: Speci men Type: BLOOD SPECIMENOrdering Facility: [facility] Address: [address] [place] [address] Performed By: #### 1 995-0 ####[facility]ATORYCLIA [id number] [address] Calcium.ionized adjusted to pH 7.4 (Bld) [Moles/Vol] 1.07 mmol/L Low 1.08-1.30 [facility] Comment on above: Order Comment: Speci men Type: BLOOD SPECIMENOrdering Facility: [facility] Address: [address] [place] [address] Performed By: #### 1 995-0 ####[facility]ORATORYCLIA [id number] [address] [place] [facility] Magnesium [Mass/Vol] 1.5 mg/dL Low 1.7-2.3 [facility] Comment on above: Order Comment: Speci men Type: BLOOD SPECIMENOrdering Facility: [facility] Address: [address] [place] [address] Performed By: #### 1 9123-9 ####[facility]ATORYCLIA [id number] [address] [place] NURSING PROGon 12-28-2022 NURSING PROG Normal [facility] Phosphate SerPl-mCncon 12-28 Phosphate [Mass/Vol] 3.7 mg/dL Normal 2.7-4.8 [facility] Comment on above: Order Comment: Speci men Type: BLOOD SPECIMENOrdering Facility: [facility] Address: [address] [place] [address] Performed By: #### 2 4321-2, 2777-1 ####[facility]ATORYCLIA [id number] [address] [place] Prealbumin [Mass/Vol]on 12-02 Prealbumin Nephelometry [Mass/Vol] 10 mg/dL Low [facility] Comment on above: Order Comment: Speci men Type: BLOOD SPECIMENOrdering Facility: [facility] Address: [address] [place] [address] Performed By: #### 1 4338-8 ####[facility]ATORYCLIA [id number] [address] [place] Vancomycin random [Mass/Vol] on 12-28-2022 Vancomycin [Mass/Vol] 10.3 ug/mL Normal 10.0-20.0 [facility] Comment on above: Order Comment: Speci men Type: BLOOD SPECIMENOrdering Facility: [facility] Address: [address] [place] [address] Result Comment: Refe rence ranges and high/low indicator flags are provided as general guidelines only. The treating physician must determine appropriate target levels/dosing based on the specific clinical situation. Performed By: #### 4 091-5 ####[facility]ATORYCLIA [id number] [address] [place] XR CHEST 1V FRONTALon 2022 XR CHEST 1V FRONTAL Normal [facility] ALLIED HEALTHon 12-27-2022 ALLIED HEALTH Normal [facility] ALLIED HEALTH Normal [facility] ANES POSTPROC EVALon 023 ANES POSTPROC EVAL Normal [facility] ARTERIAL BLOOD GASESon 12-27 Base excess Calc (Bld) [Moles/Vol] 3 mmol/L High 0-2 [facility] Comment on above: Order Comment: Speci men Type: ARTERIAL BLOOD SPECIMENOrdering Facility: [facility] Address: [address] [place] [address] Performed By: #### A LLBG ####[facility]ORATORYCLIA [id number] [address] [place] Body temperature 100.76 [degF] Normal [facility] Comment on above: Order Comment: Speci men Type: ARTERIAL BLOOD SPECIMENOrdering Facility: [facility] Address: [address] [address] Performed By: #### A LLBG ####[facility]ATORYCLIA [id number] [address] [place] Calcium.ionized (BldV) [Mass/Vol] 1.16 mmol/L Normal 1.08-1.30 [facility] Comment on above: Order Comment: Speci men Type: ARTERIAL BLOOD SPECIMENOrdering Facility: [facility] Address: [address] [place] [address] Performed By: #### A LLBG ####[facility]ATORYCLIA [id number] [address] Calcium.ionized adjusted to pH 7.4 (BldA) [Moles/Vol] 1.16 mmol/L Normal 1.08-1.30 [facility] Comment on above: Order Comment: Speci men Type: ARTERIAL BLOOD SPECIMENOrdering Facility: [facility] Address: [address] [place] [address] Performed By: #### A LLBG ####[facility]ORATORYCLIA [id number] [address] OF [facility] Carboxyhemoglobin (BldA) [Mass fraction] 1.5 % Normal 0.0-2.0 [facility] Comment on above: Order Comment: Speci men Type: ARTERIAL BLOOD SPECIMENOrdering Facility: [facility] Address: [address] [place] [address] Result Comment: Carb oxyhemoglobin Reference Range for Smokers: 2.0-8.0% Performed By: #### A LLBG ####[facility]ATORYCLIA [id number] [address] [place] Chloride [Moles/Vol] 104 mmol/L Normal 102-109 [facility] Comment on above: Order Comment: Speci men Type: ARTERIAL BLOOD SPECIMENOrdering Facility: [facility] Address: [address] [place] [address] Performed By: #### A LLBG ####[facility]ATORYCLIA [id number] [address] [place] CO2 (Bld) [Partial pressure] 48 mm Hg High 36-46 [facility] Comment on above: Order Comment: Speci men Type: ARTERIAL BLOOD SPECIMENOrdering Facility: [facility] Address: [address] [place] [address] Performed By: #### A LLBG ####[facility]ORATORYCLIA [id number] [address] [place] CO2 [Moles/Vol] 27 mmol/L Normal 22-28 [facility] Comment on above: Order Comment: Speci men Type: ARTERIAL BLOOD SPECIMENOrdering Facility: [facility] Address: [address] [address] Performed By: #### A LLBG ####[facility]ATORYCLIA [id number] [address] [place] CO2 adjusted to patient's actual temperature (Bld) [Partial pressure] 51 mmHg High 36-46 [facility] Comment on above: Order Comment: Speci men Type: ARTERIAL BLOOD SPECIMENOrdering Facility: [facility] Address: [address] [place] [address] Performed By: #### A LLBG ####[facility]ATORYCLIA [id number] [address] [place] Glucose [Mass/Vol] 267 mg/dL High 60-105 [facility] Comment on above: Order Comment: Speci men Type: ARTERIAL BLOOD SPECIMENOrdering Facility: [facility] Address: [address] [address] Performed By: #### A LLBG ####[facility]ATORYCLIA [id number] [address] [place] HCO3 (Bld) [Moles/Vol] 28 mmol/L High 22-26 [facility] Comment on above: Order Comment: Speci men Type: ARTERIAL BLOOD SPECIMENOrdering Facility: [facility] Address: [address] [address] Performed By: #### A LLBG ####[facility]ATORYCLIA [id number] [address] [place] Hematocrit (Bld) [Volume fraction] 29.4 % Low 36.0-46.0 [facility] Comment on above: Order Comment: Speci men Type: ARTERIAL BLOOD SPECIMENOrdering Facility: [facility] Address: [address] [address] Performed By: #### A LLBG ####[facility]ATORYCLIA [id number] [address] OF [facility] Hemoglobin (Bld) [Mass/Vol] 9.5 g/dL Low 11.5-15.5 [facility] Comment on above: Order Comment: Speci men Type: ARTERIAL BLOOD SPECIMENOrdering Facility: [facility] Address: [address] [place] [address] Performed By: #### A LLBG ####[facility]ORATORYCLIA [id number] [address] OF [facility] Lactate [Moles/Vol] 1.2 mmol/L Normal 0.5-2.2 [facility] Comment on above: Order Comment: Speci men Type: ARTERIAL BLOOD SPECIMENOrdering Facility: [facility] Address: [address] [place] [address] Performed By: #### A LLBG ####[facility]ATORYCLIA [id number] [address] Methemoglobin (Bld) [Mass fraction] 1.2 % Normal 0.0-1.5 [facility] Comment on above: Order Comment: Speci men Type: ARTERIAL BLOOD SPECIMENOrdering Facility: [facility] Address: [address] [place] [address] Performed By: #### A LLBG ####[facility]ORATORYCLIA [id number] [address] O2 THERAPY Ventilator Normal [facility] Comment on above: Order Comment: Speci men Type: ARTERIAL BLOOD SPECIMENOrdering Facility: [facility] Address: [address] [place] [address] Performed By: #### A LLBG ####[facility]ATORYCLIA [id number] [address] Oxygen (Bld) [Partial pressure] 93 mm Hg Normal 85-95 [facility] Comment on above: Order Comment: Speci men Type: ARTERIAL BLOOD SPECIMENOrdering Facility: [facility] Address: [address] [address] Performed By: #### A LLBG ####[facility]ATORYCLIA [id number] [address] Oxygen adjusted to patient's actual temperature (Bld) [Partial pressure] 100 mmHg High 85-95 [facility] Comment on above: Order Comment: Speci men Type: ARTERIAL BLOOD SPECIMENOrdering Facility: [facility] Address: [address] [place] [address] Performed By: #### A LLBG ####[facility]ATORYCLIA [id number] [address] Oxyhemoglobin (BldA) [Mass fraction] 94 % Low 95-98 [facility] Comment on above: Order Comment: Speci men Type: ARTERIAL BLOOD SPECIMENOrdering Facility: [facility] Address: [address] [place] [address] Performed By: #### A LLBG ####[facility]ATORYCLIA [id number] [address] [place] pH (Bld) 7.39 [pH] Normal 7.35-7.45 [facility] Comment on above: Order Comment: Speci men Type: ARTERIAL BLOOD SPECIMENOrdering Facility: [facility] Address: [address] [place] [address] Performed By: #### A LLBG ####[facility]ATORYCLIA [id number] [address] pH adjusted to patient's actual temperature (Bld) 7.37 Normal 7.35-7.45 [facility] Comment on above: Order Comment: Speci men Type: ARTERIAL BLOOD SPECIMENOrdering Facility: [facility] Address: [address] [place] [address] Performed By: #### A LLBG ####[facility]ATORYCLIA [id number] [place] [address] [place] Potassium [Moles/Vol] 4.5 mmol/L Normal 3.5-5.0 [facility] Comment on above: Order Comment: Speci men Type: ARTERIAL BLOOD SPECIMENOrdering Facility: [facility] Address: [address] [address] Performed By: #### A LLBG ####[facility]ORATORYCLIA [id number] [place] [address] [place] Sodium [Moles/Vol] 136 mmol/L Normal 136-144 [facility] Comment on above: Order Comment: Speci men Type: ARTERIAL BLOOD SPECIMENOrdering Facility: [facility] Address: [address] [address] Performed By: #### A LLBG ####[facility]ORATORYCLIA [id number] [place] [address] [place] Basic metabolic 2000 panelon 12-27-2022 Anion gap [Moles/Vol] 10 mmol/L Normal 9-18 [facility] Comment on above: Order Comment: Speci men Type: BLOOD SPECIMENOrdering Facility: [facility] Address: [address] [place] [address] Performed By: #### 2 4321-01, 1988-03, 2776-12, ####[facility]ATORYCLIA [id number] [place] [address] [place] Calcium [Mass/Vol] 8.9 mg/dL Normal 8.5-10.2 [facility] Comment on above: Order Comment: Speci men Type: BLOOD SPECIMENOrdering Facility: [facility] Address: [address] [address] Performed By: #### 2 4321-01, 1988-03, 2776-12, ####[facility]ATORYCLIA [id number] [place] [address] [place] Chloride [Moles/Vol] 98 mmol/L Normal 97-105 [facility] Comment on above: Order Comment: Speci men Type: BLOOD SPECIMENOrdering Facility: [facility] Address: [address] [place] [address] Performed By: #### 2 4321-01, 1988-03, ####[facility]ITALCLIA [id number] [place] [address] [place] CO2 [Moles/Vol] 28 mmol/L Normal 22-30 [facility] Comment on above: Order Comment: Speci men Type: BLOOD SPECIMENOrdering Facility: [facility] Address: [address] [place] [address] Performed By: #### 2 4321-01, 1988-03, ####[facility]ITALIA [id number] [place] [address] [place] Creatinine [Mass/Vol] 0.91 mg/dL Normal 0.58-0.96 [facility] Comment on above: Order Comment: Speci men Type: BLOOD SPECIMENOrdering Facility: [facility] Address: [address] [place] [address] Performed By: #### 2 4321-01, 1988-03, ####[facility]ITALIA [id number] [address] [place] ESTIMATED GLOMERULAR FILTRATION RATE 79 mL/min/1.73m??? Normal >=60 [facility] Comment on above: Order Comment: Speci men Type: BLOOD SPECIMENOrdering Facility: [facility] Address: [address] [place] [address] Result Comment: Gayle mated Glomerular Filtration Rate [...] Performed By: #### 2 4321-01, 1988-03, 2776-12, ####[facility]PITALIA [id number] [place] [address] [place] Glucose [Mass/Vol] 190 mg/dL High 74-99 [facility] Comment on above: Order Comment: Roberto talbot Type: BLOOD SPECIMENOrdering Facility: [facility] Address: [address] [place] [address] Result Comment: The [place] [employer] [...] Performed By: #### 2 4321-01, 1988-03, 2776-12, ####[facility]ORATORYCLIA [id number] [place] [address] [place] Potassium [Moles/Vol] 4.5 mmol/L Normal 3.7-5.1 [facility] Comment on above: Order Comment: Roberto talbot Type: BLOOD SPECIMENOrdering Facility: [facility] Address: [address] [address] Performed By: #### 2 4321-01, 1988-03, 2776-12, ####[facility]ATORYCLIA [id number] [place] [address] [place] Sodium [Moles/Vol] 136 mmol/L Normal 136-144 [facility] Comment on above: Order Comment: Roberto talbot Type: BLOOD SPECIMENOrdering Facility: [facility] Address: [address] [place] [address] Performed By: #### 2 4321-01, 1988-03, 2776-12, ####[facility]ATORYCLIA [id number] [place] [address] [place] Urea nitrogen [Mass/Vol] 12 mg/dL Normal 7-21 [facility] Comment on above: Order Comment: Speci men Type: BLOOD SPECIMENOrdering Facility: [facility] Address: [address] [place] [address] Performed By: #### 2 4321-2, 1987-5, 2777-1, 73976-0 ####[facility]ORATORYCLIA [id number] [address] OF [facility] CBC panel Auto (Bld)on 12-27 Erythrocyte distribution width (RBC) [Ratio] 16.2 % High 11.5-15.0 [facility] Comment on above: Order Comment: Speci men Type: BLOOD SPECIMENOrdering Facility: [facility] Address: [address] [place] [address] Performed By: #### 5 8410-2 ####[facility]ORATORYCLIA [id number] [address] STATES OF [facility] Hematocrit (Bld) [Volume fraction] 28.4 % Low 36.0-46.0 [facility] Comment on above: Order Comment: Speci men Type: BLOOD SPECIMENOrdering Facility: [facility] Address: [address] [place] [address] Performed By: #### 5 8410-2 ####[facility]ATORYCLIA [id number] [address] STATES OF [facility] Hemoglobin (Bld) [Mass/Vol] 8.5 g/dL Low 11.5-15.5 [facility] Comment on above: Order Comment: Speci men Type: BLOOD SPECIMENOrdering Facility: [facility] Address: [address] [place] [address] Performed By: #### 5 8410-2 ####[facility]ORATORYCLIA [id number] [address] STATES [facility] MCH (RBC) [Entitic mass] 28.1 pg Normal 26.0-34.0 [facility] Comment on above: Order Comment: Speci men Type: BLOOD SPECIMENOrdering Facility: [facility] Address: [address] [place] [address] Performed By: #### 5 8410-2 ####[facility]ATORYCLIA [id number] [address] MCHC (RBC) [Mass/Vol] 29.9 g/dL Low 30.5-36.0 [facility] Comment on above: Order Comment: Speci men Type: BLOOD SPECIMENOrdering Facility: [facility] Address: [address] [place] [address] Performed By: #### 5 8410-2 ####[facility]ORATORYCLIA [id number] [address] [place] MCV (RBC) [Entitic vol] 93.7 fL Normal 80.0-100.0 [facility] Comment on above: Order Comment: Speci men Type: BLOOD SPECIMENOrdering Facility: [facility] Address: [address] [place] [address] Performed By: #### 5 8410-2 ####[facility]ATORYCLIA [id number] [address] STATES OF [facility] Nucleated RBC (Bld) [#/Vol] 10*3/uL Normal <0.01 [facility] Comment on above: Order Comment: Speci men Type: BLOOD SPECIMENOrdering Facility: [facility] Address: [address] [place] [address] Performed By: #### 5 8410-2 ####[facility] LABORATORYCLIA [id number] [address] [place] Platelet mean volume (Bld) [Entitic vol] 9.4 fL Normal 9.0-12.7 [facility] Comment on above: Order Comment: Speci men Type: BLOOD SPECIMENOrdering Facility: [facility] Address: [address] [place] [address] Performed By: #### 5 8410-2 ####[facility] LABORATORYCLIA [id number] [address] [place] Platelets (Bld) [#/Vol] 333 10*3/uL Normal 150-400 [facility] Comment on above: Order Comment: Speci men Type: BLOOD SPECIMENOrdering Facility: [facility] Address: [address] [place] [address] Performed By: #### 5 8410-2 ####[facility] LABORATORYCLIA [id number] [address] STATES OF [facility] RBC (Bld) [#/Vol] 3.03 10*6/uL Low 3.90-5.20 [facility] Comment on above: Order Comment: Speci men Type: BLOOD SPECIMENOrdering Facility: [facility] Address: [address] [place] [address] Performed By: #### 5 8410-2 ####[facility] LABORATORYCLIA [id number] [address] OF [facility] WBC (Bld) [#/Vol] 16.79 10*3/uL High 3.70-11.00 [facility] Comment on above: Order Comment: Speci men Type: BLOOD SPECIMENOrdering Facility: [facility] Address: [address] [place] [address] Performed By: #### 5 8410-2 ####[facility]ORATORYCLIA [id number] [address] CONSULT PROGon 12-27-2022 CONSULT PROG Normal [facility] CRP SerPl-mCncon 12-27-2022 CRP [Mass/Vol] 12.9 mg/dL High <0.9 [facility] Comment on above: Order Comment: Speci men Type: BLOOD SPECIMENOrdering Facility: [facility] Address: [address] [place] [address] Performed By: #### 2 4321-2, 1987-, 2777-1, 08136-5 ####[facility]ATORYCLIA [id number] [address] Calcium.ionized [Moles/Vol]o n 12-27-2022 Calcium.ionized (BldV) [Mass/Vol] 1.06 mmol/L Low 1.08-1.30 [facility] Comment on above: Order Comment: Speci men Type: BLOOD SPECIMENOrdering Facility: [facility] Address: [address] [place] [address] Performed By: #### 1 995-0 ####[facility]ATORYCLIA [id number] [place] [address] [place] Calcium.ionized adjusted to pH 7.4 (Bld) [Moles/Vol] 1.11 mmol/L Normal 1.08-1.30 [facility] Comment on above: Order Comment: Speci men Type: BLOOD SPECIMENOrdering Facility: [facility] Address: [address] [place] [address] Performed By: #### 1 995-0 ####[facility] LABORATORYCLIA [id number] [place] [address] [place] Magnesium SerPl-[facility] 12-27 Magnesium [Mass/Vol] 1.7 mg/dL Normal 1.7-2.3 [facility] Comment on above: Order Comment: Speci men Type: BLOOD SPECIMENOrdering Facility: [facility] Address: [address] [place] [address] Performed By: #### 2 4321-2, 1988-03, 2776-12, ####[facility]ATORYCLIA [id number] [place] [address] [place] Phosphate SerPl-mCncon 12-27 Phosphate [Mass/Vol] 4.4 mg/dL Normal 2.7-4.8 [facility] Comment on above: Order Comment: Speci men Type: BLOOD SPECIMENOrdering Facility: [facility] Address: [address] [place] [address] Performed By: #### 2 4321-2, 1988-03, 2776-12, ####[facility]ORATORYCLIA [id number] [place] [address] [place] XR CHEST 1V FRONTALon 2022 XR CHEST 1V FRONTAL Normal [facility] ALLIED HEALTHon 12-26-2022 ALLIED HEALTH Normal [facility] ALLIED HEALTH Normal [facility] ANES PRE-OPon 12-26-2022 ANES PRE-OP Normal [facility] Basic metabolic 2000 panelon 12-26-2022 Anion gap [Moles/Vol] 10 mmol/L Normal 9-18 [facility] Comment on above: Order Comment: Speci men Type: BLOOD SPECIMENOrdering Facility: [facility] Address: [address] [address] Performed By: #### 2 4321-2, 2570-8, 83202-1, 2776- ####[facility]ORATORYCLIA [id number] [place] [address] [place] Calcium [Mass/Vol] 9.1 mg/dL Normal 8.5-10.2 [facility] Comment on above: Order Comment: Speci men Type: BLOOD SPECIMENOrdering Facility: [facility] Address: [address] [place] [address] Performed By: #### 2 4321-2, 2570-8, 57691-4, 2776-12 ####[facility]ATORYCLIA [id number] [place] [address] [place] Chloride [Moles/Vol] 101 mmol/L Normal 97-105 [facility] Comment on above: Order Comment: Speci men Type: BLOOD SPECIMENOrdering Facility: [facility] Address: [address] [place] [address] Performed By: #### 2 4321-2, 2570-8, 88443-9, 2776- ####[facility] LABORATORYCLIA [id number] [place] [id number] [place] CO2 [Moles/Vol] 26 mmol/L Normal 22-30 [facility] Comment on above: Order Comment: Speci men Type: BLOOD SPECIMENOrdering Facility: [facility] Address: [address] [place] [address] Performed By: #### 2 4321-2, 2570-8, 72434-5, 2776-12 ####[facility]ITALCLIA [id number] [place] [address] [place] Creatinine [Mass/Vol] 1.14 mg/dL High 0.58-0.96 [facility] Comment on above: Order Comment: Roberto talbot Type: BLOOD SPECIMENOrdering Facility: [facility] Address: [address] [address] Performed By: #### 2 4321-2, 2570-8, , 2776-12 ####[facility]OSPITALIA [id number] [place] [address] [place] ESTIMATED GLOMERULAR FILTRATION RATE 61 mL/min/1.73m??? Normal >=60 [facility] Comment on above: Order Comment: Roberto dahiana Type: BLOOD SPECIMENOrdering Facility: [facility] Address: [address] [place] [address] Result Comment: Gayle mated Glomerular Filtration Rate [...] By: #### 2 4321-2, 2570-8, , 2776-12 ####[facility] HOSPITALIA [id number] [place] [address] [place] Glucose [Mass/Vol] 246 mg/dL High 74-99 [facility] Comment on above: Order Comment: Roberto dahiana Type: BLOOD SPECIMENOrdering Facility: [facility] Address: [address] [address] Result Comment: The [place] [employer] [...] 2016.39(Suppl 1). Performed By: #### 2 4321-2, 2571-8, 09335-4, 2776- ####[facility] LABORATORYCLIA [id number] [address] STATES OF [facility] Potassium [Moles/Vol] 4.4 mmol/L Normal 3.7-5.1 [facility] Comment on above: Order Comment: Roberto talbot Type: BLOOD SPECIMENOrdering Facility: [facility] Address: [address] [place] [address] Performed By: #### 2 4321-2, 2570-8, , 2776- ####[facility]ORATORYCLIA [id number] [address] STATES OF [facility] Sodium [Moles/Vol] 137 mmol/L Normal 136-144 [facility] Comment on above: Order Comment: Roberto talbot Type: BLOOD SPECIMENOrdering Facility: [facility] Address: [address] [place] [address] Performed By: #### 2 4321-2, 2570-8, 23410-8, 2776-1 ####[facility]ATORYCLIA [id number] [address] [place] Urea nitrogen [Mass/Vol] 20 mg/dL Normal 7-21 [facility] Comment on above: Order Comment: Roberto talbot Type: BLOOD SPECIMENOrdering Facility: [facility] Address: [address] [place] [address] Performed By: #### 2 4321-2, 2570-8, 96331-1, 2776-1 ####[facility]ORATORYCLIA [id number] [place] [address] [place] CASE MGT INIT ASSESon 2022 CASE MGT INIT ASSES Normal [facility] CBC panel Auto (Bld)on 12-26 Erythrocyte distribution width (RBC) [Ratio] 16.4 % High 11.5-15.0 [facility] Comment on above: Order Comment: Speci men Type: BLOOD SPECIMENOrdering Facility: [facility] Address: [address] [place] [address] Performed By: #### 5 8410-2 ####[facility] LABORATORYCLIA [id number] [address] OF [facility] Hematocrit (Bld) [Volume fraction] 29.4 % Low 36.0-46.0 [facility] Comment on above: Order Comment: Speci men Type: BLOOD SPECIMENOrdering Facility: [facility] Address: [address] [place] [address] Performed By: #### 5 8410-2 ####[facility]ORATORYCLIA [id number] [address] STATES OF [facility] Hemoglobin (Bld) [Mass/Vol] 8.8 g/dL Low 11.5-15.5 [facility] Comment on above: Order Comment: Speci men Type: BLOOD SPECIMENOrdering Facility: [facility] Address: [address] [place] [address] Performed By: #### 5 8410-2 ####[facility]ATORYCLIA [id number] [address] [place] MCH (RBC) [Entitic mass] 28.7 pg Normal 26.0-34.0 [facility] Comment on above: Order Comment: Speci men Type: BLOOD SPECIMENOrdering Facility: [facility] Address: [address] [place] [address] Performed By: #### 5 8410-2 ####[facility]ORATORYCLIA [id number] [address] [place] MCHC (RBC) [Mass/Vol] 29.9 g/dL Low 30.5-36.0 [facility] Comment on above: Order Comment: Speci men Type: BLOOD SPECIMENOrdering Facility: [facility] Address: [address] [address] Performed By: #### 5 8410-2 ####[facility]ORATORYCLIA [id number] [address] MCV (RBC) [Entitic vol] 95.8 fL Normal 80.0-100.0 [facility] Comment on above: Order Comment: Speci men Type: BLOOD SPECIMENOrdering Facility: [facility] Address: [address] [address] Performed By: #### 5 8410-2 ####[facility]ORATORYCLIA [id number] [address] Nucleated RBC (Bld) [#/Vol] 10*3/uL Normal <0.01 [facility] Comment on above: Order Comment: Speci men Type: BLOOD SPECIMENOrdering Facility: [facility] Address: [address] [address] Performed By: #### 5 8410-2 ####[facility]ORATORYCLIA [id number] [address] Platelet mean volume (Bld) [Entitic vol] 9.4 fL Normal 9.0-12.7 [facility] Comment on above: Order Comment: Speci men Type: BLOOD SPECIMENOrdering Facility: [facility] Address: [address] [place] [address] Performed By: #### 5 8410-2 ####[facility]ATORYCLIA [id number] [address] Platelets (Bld) [#/Vol] 304 10*3/uL Normal 150-400 [facility] Comment on above: Order Comment: Speci men Type: BLOOD SPECIMENOrdering Facility: [facility] Address: [address] [place] [address] Performed By: #### 5 8410-2 ####[facility] LABORATORYCLIA [id number] [place] [address] [place] RBC (Bld) [#/Vol] 3.07 10*6/uL Low 3.90-5.20 [facility] Comment on above: Order Comment: Speci men Type: BLOOD SPECIMENOrdering Facility: [facility] Address: [address] [place] [address] Performed By: #### 5 8410-2 ####[facility]ORATORYCLIA [id number] [address] OF [facility] WBC (Bld) [#/Vol] 17.12 10*3/uL High 3.70-11.00 [facility] Comment on above: Order Comment: Speci men Type: BLOOD SPECIMENOrdering Facility: [facility] Address: [address] [place] [address] Performed By: #### 5 8410-2 ####[facility]ATORYCLIA [id number] [address] CONSULT PROGon 12-26-2022 CONSULT PROG Normal [facility] Calcium.ionized [Moles/Vol]o n 12-26-2022 Calcium.ionized (BldV) [Mass/Vol] 1.22 mmol/L Normal 1.08-1.30 [facility] Comment on above: Order Comment: Speci men Type: BLOOD SPECIMENOrdering Facility: [facility] Address: [address] [place] [address] Performed By: #### 1 995-0 ####[facility]ATORYCLIA [id number] [address] Calcium.ionized adjusted to pH 7.4 (Bld) [Moles/Vol] 1.21 mmol/L Normal 1.08-1.30 [facility] Comment on above: Order Comment: Speci men Type: BLOOD SPECIMENOrdering Facility: [facility] Address: [address] [place] [address] Performed By: #### 1 995-0 ####[facility]ORATORYCLIA [id number] [address] HCG ( test) Ql (U)o n 12-26-2022 Specific gravity (U) [Rel density] 1.020 Normal 1.006-1.029 [facility] Comment on above: Order Comment: Speci men Type: URINE SPECIMENOrdering Facility: [facility] Address: [address] [place] [address] Result Comment: If s pecific gravity is <1.005 then results may be falsely negative. Serum HCG is recommended. Performed By: #### 2 106-3 ####[facility] LABORATORYCLIA [id number] [place] [address] [place] HCG Preg Ur Qlon 12-26-2022 HCG ( test) Ql (U) Negative Normal Negative [facility] Comment on above: Order Comment: Roberto talbot Type: URINE SPECIMENOrdering Facility: [facility] Address: [address] [place] [address] Result Comment: This test is intended to aid in the early detection of . Very dilute urine samples, as indicated by a low specific gravity, may not contain medical representative levels of hCG. This test detects [...] for . Performed By: #### 2 106-3 ####[facility]ORATORYCLIA [id number] [place] [address] [place] Magnesium SerPl-mCncon 12-26 Magnesium [Mass/Vol] 1.4 mg/dL Low 1.7-2.3 [facility] Comment on above: Order Comment: Roberto talbot Type: BLOOD SPECIMENOrdering Facility: [facility] Address: [address] [place] [address] Performed By: #### 2 4321-2, 2571-8, 87804-6, 2777-1 ####[facility]ORATORYCLIA [id number] [place] [id number] [facility] OPERATIVE NOon 12-26-2022 OPERATIVE NO Normal [facility] Phosphate SerPl-mCncon 12-26 Phosphate [Mass/Vol] 3.0 mg/dL Normal 2.7-4.8 [facility] Comment on above: Order Comment: Speci men Type: BLOOD SPECIMENOrdering Facility: [facility] Address: [address] [place] [address] Performed By: #### 2 4321-2, 2570-8, , 2776-12 ####[facility]ORATORYCLIA [id number] [address] Trigl SerPl-mCncon Triglyceride [Mass/Vol] 198 mg/dL High <150 [facility] Comment on above: Order Comment: Speci men Type: BLOOD SPECIMENOrdering Facility: [facility] Address: [address] [place] [address] Result Comment: <150 mg/dL, Normal 150-199 mg/dL, Borderline high 200-499 mg/dL, High>499 mg/dL, Very highReference:1. National Cholesterol Education Program ATP III Guideline At-A-Glance Quick Desk Reference: National Heart, Lung, and Blood [place]. National Institutes of Health. 2001: NIH Publication No. 01-3305. Performed By: #### 2 4321-2, 2570-8, , 2776-12 ####[facility]ATORYCLIA [id number] [address] Triglyceride [Mass/Vol]on FASTING TIME 0 hrs Normal [facility] Comment on above: Order Comment: Speci men Type: BLOOD SPECIMENOrdering Facility: [facility] Address: [address] [place] [address] Result Comment: impa ct 1.5 tube feed continuous Performed By: #### 2 4321-2, 2570-8, , 2776-12 ####[facility]ATORYCLIA [id number] [place] [address] [place] XR CHEST 1V FRONTALon 2022 XR CHEST 1V FRONTAL Normal [facility] ALLIED HEALTHon 12-25-2022 ALLIED HEALTH Normal [facility] ALLIED HEALTH Normal [facility] ANES POSTPROC EVALon 023 ANES POSTPROC EVAL Normal [facility] ANES PRE-OPon 12-25-2022 ANES PRE-OP Normal [facility] ARTERIAL BLOOD GASESon 12-25 Base excess Calc (Bld) [Moles/Vol] 0 mmol/L Normal 0-2 [facility] Comment on above: Order Comment: Speci men Type: ARTERIAL BLOOD SPECIMENOrdering Facility: [facility] Address: [address] [place] [address] Performed By: #### A LLBG ####[facility]ORATORYCLIA [id number] [address] [place] Body temperature 98.96 [degF] Normal [facility] Comment on above: Order Comment: Speci men Type: ARTERIAL BLOOD SPECIMENOrdering Facility: [facility] Address: [address] [place] [address] Performed By: #### A LLBG ####[facility]ATORYCLIA [id number] [address] [place] Calcium.ionized (BldV) [Mass/Vol] 1.18 mmol/L Normal 1.08-1.30 [facility] Comment on above: Order Comment: Speci men Type: ARTERIAL BLOOD SPECIMENOrdering Facility: [facility] Address: [address] [place] [address] Performed By: #### A LLBG ####[facility]ATORYCLIA [id number] [address] [place] Calcium.ionized adjusted to pH 7.4 (BldA) [Moles/Vol] 1.15 mmol/L Normal 1.08-1.30 [facility] Comment on above: Order Comment: Speci men Type: ARTERIAL BLOOD SPECIMENOrdering Facility: [facility] Address: [address] [address] Performed By: #### A LLBG ####[facility]ATORYCLIA [id number] [address] [place] Carboxyhemoglobin (BldA) [Mass fraction] <1.0 Normal 0.0-2.0 [facility] Comment on above: Order Comment: Speci men Type: ARTERIAL BLOOD SPECIMENOrdering Facility: [facility] Address: [address] [place] [address] Result Comment: Carb oxyhemoglobin Reference Range for Smokers: 2.0-8.0% Performed By: #### A LLBG ####[facility]ATORYCLIA [id number] [address] [place] Chloride [Moles/Vol] 102 mmol/L Normal 102-109 [facility] Comment on above: Order Comment: Speci men Type: ARTERIAL BLOOD SPECIMENOrdering Facility: [facility] Address: [address] [place] [address] Performed By: #### A LLBG ####[facility]ORATORYCLIA [id number] [address] [place] CO2 (Bld) [Partial pressure] 48 mm Hg High 36-46 [facility] Comment on above: Order Comment: Speci men Type: ARTERIAL BLOOD SPECIMENOrdering Facility: [facility] Address: [address] [place] [address] Performed By: #### A LLBG ####[facility]ORATORYCLIA [id number] [address] [place] CO2 [Moles/Vol] 24 mmol/L Normal 22-28 [facility] Comment on above: Order Comment: Speci men Type: ARTERIAL BLOOD SPECIMENOrdering Facility: [facility] Address: [address] [place] [address] Performed By: #### A LLBG ####[facility]ATORYCLIA [id number] [address] [place] CO2 adjusted to patient's actual temperature (Bld) [Partial pressure] 48 mmHg High 36-46 [facility] Comment on above: Order Comment: Speci men Type: ARTERIAL BLOOD SPECIMENOrdering Facility: [facility] Address: [address] [place] [address] Performed By: #### A LLBG ####[facility]ORATORYCLIA [id number] [address] [place] Glucose [Mass/Vol] 188 mg/dL High 60-105 [facility] Comment on above: Order Comment: Speci men Type: ARTERIAL BLOOD SPECIMENOrdering Facility: [facility] Address: [address] [place] [address] Performed By: #### A LLBG ####[facility]ORATORYCLIA [id number] [address] [place] HCO3 (Bld) [Moles/Vol] 26 mmol/L Normal 22-26 [facility] Comment on above: Order Comment: Speci men Type: ARTERIAL BLOOD SPECIMENOrdering Facility: [facility] Address: [address] [place] [address] Performed By: #### A LLBG ####[facility]ATORYCLIA [id number] [address] [place] Hematocrit (Bld) [Volume fraction] 28.1 % Low 36.0-46.0 [facility] Comment on above: Order Comment: Speci men Type: ARTERIAL BLOOD SPECIMENOrdering Facility: [facility] Address: [address] [place] [address] Performed By: #### A LLBG ####[facility]ORATORYCLIA [id number] [place] [address] [place] Hemoglobin (Bld) [Mass/Vol] 9.1 g/dL Low 11.5-15.5 [facility] Comment on above: Order Comment: Speci men Type: ARTERIAL BLOOD SPECIMENOrdering Facility: [facility] Address: [address] [place] [address] Performed By: #### A LLBG ####[facility]ORATORYCLIA [id number] [address] Lactate [Moles/Vol] 0.8 mmol/L Normal 0.5-2.2 [facility] Comment on above: Order Comment: Speci men Type: ARTERIAL BLOOD SPECIMENOrdering Facility: [facility] Address: [address] [place] [address] Performed By: #### A LLBG ####[facility]ORATORYCLIA [id number] [address] Methemoglobin (Bld) [Mass fraction] % Normal 0.0-1.5 [facility] Comment on above: Order Comment: Speci men Type: ARTERIAL BLOOD SPECIMENOrdering Facility: [facility] Address: [address] [place] [address] Performed By: #### A LLBG ####[facility]ATORYCLIA [id number] [address] O2 THERAPY Ventilator Normal [facility] Comment on above: Order Comment: Speci men Type: ARTERIAL BLOOD SPECIMENOrdering Facility: [facility] Address: [address] [place] [address] Performed By: #### A LLBG ####[facility]ORYCLIA [id number] [address] Oxygen (Bld) [Partial pressure] 174 mm Hg High 85-95 [facility] Comment on above: Order Comment: Speci men Type: ARTERIAL BLOOD SPECIMENOrdering Facility: [facility] Address: [address] [place] [address] Performed By: #### A LLBG ####[facility]ATORYCLIA [id number] [address] Oxygen adjusted to patient's actual temperature (Bld) [Partial pressure] 175 mmHg High 85-95 [facility] Comment on above: Order Comment: Speci men Type: ARTERIAL BLOOD SPECIMENOrdering Facility: [facility] Address: [address] [place] [address] Performed By: #### A LLBG ####[facility]ORATORYCLIA [id number] [address] [place] Oxyhemoglobin (BldA) [Mass fraction] 96 % Normal 95-98 [facility] Comment on above: Order Comment: Speci men Type: ARTERIAL BLOOD SPECIMENOrdering Facility: [facility] Address: [address] [place] [address] Performed By: #### A LLBG ####[facility]ORATORYCLIA [id number] [place] [address] [place] pH (Bld) 7.35 [pH] Normal 7.35-7.45 [facility] Comment on above: Order Comment: Speci men Type: ARTERIAL BLOOD SPECIMENOrdering Facility: [facility] Address: [address] [place] [address] Performed By: #### A LLBG ####[facility]ORATORYCLIA [id number] [address] pH adjusted to patient's actual temperature (Bld) 7.35 Normal 7.35-7.45 [facility] Comment on above: Order Comment: Speci men Type: ARTERIAL BLOOD SPECIMENOrdering Facility: [facility] Address: [address] [place] [address] Performed By: #### A LLBG ####[facility] LABORATORYCLIA [id number] [place] [address] [place] Potassium [Moles/Vol] 4.9 mmol/L Normal 3.5-5.0 [facility] Comment on above: Order Comment: Speci men Type: ARTERIAL BLOOD SPECIMENOrdering Facility: [facility] Address: [address] [place] [address] Performed By: #### A LLBG ####[facility]ATORYCLIA [id number] [address] [place] Sodium [Moles/Vol] 137 mmol/L Normal 136-144 [facility] Comment on above: Order Comment: Speci men Type: ARTERIAL BLOOD SPECIMENOrdering Facility: [facility] Address: [address] [place] [address] Performed By: #### A LLBG ####[facility]ATORYCLIA [id number] [address] Base deficit (BldA) [Moles/Vol] -2 mmol/L Normal -2-0 [facility] Comment on above: Order Comment: Speci men Type: ARTERIAL BLOOD SPECIMENOrdering Facility: [facility] Address: [address] [place] [address] Performed By: #### A LLBG ####[facility]ORATORYCLIA [id number] [address] Body temperature 98.78 [degF] Normal [facility] Comment on above: Order Comment: Speci men Type: ARTERIAL BLOOD SPECIMENOrdering Facility: [facility] Address: [address] [place] [address] Performed By: #### A LLBG ####[facility]ATORYCLIA [id number] [address] Calcium.ionized (BldV) [Mass/Vol] 1.06 mmol/L Low 1.08-1.30 [facility] Comment on above: Order Comment: Speci men Type: ARTERIAL BLOOD SPECIMENOrdering Facility: [facility] Address: [address] [place] [address] Performed By: #### A LLBG ####[facility]ATORYCLIA [id number] [address] Calcium.ionized adjusted to pH 7.4 (BldA) [Moles/Vol] 1.01 mmol/L Low 1.08-1.30 [facility] Comment on above: Order Comment: Speci men Type: ARTERIAL BLOOD SPECIMENOrdering Facility: [facility] Address: [address] [place] [address] Performed By: #### A LLBG ####[facility]ATORYCLIA [id number] [address] [place] Carboxyhemoglobin (BldA) [Mass fraction] 2.2 % High 0.0-2.0 [facility] Comment on above: Order Comment: Speci men Type: ARTERIAL BLOOD SPECIMENOrdering Facility: [facility] Address: [address] [place] [address] Result Comment: Carb oxyhemoglobin Reference Range for Smokers: 2.0-8.0% Performed By: #### A LLBG ####[facility] LABORATORYCLIA [id number] [address] [place] Chloride [Moles/Vol] 110 mmol/L High 102-109 [facility] Comment on above: Order Comment: Speci men Type: ARTERIAL BLOOD SPECIMENOrdering Facility: [facility] Address: [address] [place] [address] Performed By: #### A LLBG ####[facility]ATORYCLIA [id number] [address] [place] CO2 (Bld) [Partial pressure] 47 mm Hg High 36-46 [facility] Comment on above: Order Comment: Speci men Type: ARTERIAL BLOOD SPECIMENOrdering Facility: [facility] Address: [address] [place] [address] Performed By: #### A LLBG ####[facility]ATORYCLIA [id number] [address] [place] CO2 [Moles/Vol] 22 mmol/L Normal 22-28 [facility] Comment on above: Order Comment: Speci men Type: ARTERIAL BLOOD SPECIMENOrdering Facility: [facility] Address: [address] [place] [address] Performed By: #### A LLBG ####[facility]ORATORYCLIA [id number] [address] [place] CO2 adjusted to patient's actual temperature (Bld) [Partial pressure] 47 mmHg High 36-46 [facility] Comment on above: Order Comment: Speci men Type: ARTERIAL BLOOD SPECIMENOrdering Facility: [facility] Address: [address] [place] [address] Performed By: #### A LLBG ####[facility]ATORYCLIA [id number] [address] [place] Glucose [Mass/Vol] 162 mg/dL High 60-105 [facility] Comment on above: Order Comment: Speci men Type: ARTERIAL BLOOD SPECIMENOrdering Facility: [facility] Address: [address] [place] [address] Performed By: #### A LLBG ####[facility]ATORYCLIA [id number] [address] [place] HCO3 (Bld) [Moles/Vol] 23 mmol/L Normal 22-26 [facility] Comment on above: Order Comment: Speci men Type: ARTERIAL BLOOD SPECIMENOrdering Facility: [facility] Address: [address] [place] [address] Performed By: #### A LLBG ####[facility]ATORYCLIA [id number] [address] [place] Hematocrit (Bld) [Volume fraction] 31.8 % Low 36.0-46.0 [facility] Comment on above: Order Comment: Speci men Type: ARTERIAL BLOOD SPECIMENOrdering Facility: [facility] Address: [address] [place] [address] Performed By: #### A LLBG ####[facility]ATORYCLIA [id number] [address] [place] Hemoglobin (Bld) [Mass/Vol] 10.3 g/dL Low 11.5-15.5 [facility] Comment on above: Order Comment: Speci men Type: ARTERIAL BLOOD SPECIMENOrdering Facility: [facility] Address: [address] [place] [address] Performed By: #### A LLBG ####[facility]ATORYCLIA [id number] [address] [place] Lactate [Moles/Vol] 0.6 mmol/L Normal 0.5-2.2 [facility] Comment on above: Order Comment: Speci men Type: ARTERIAL BLOOD SPECIMENOrdering Facility: [facility] Address: [address] [place] [address] Performed By: #### A LLBG ####[facility]ORATORYCLIA [id number] [address] Methemoglobin (Bld) [Mass fraction] 1.1 % Normal 0.0-1.5 [facility] Comment on above: Order Comment: Speci men Type: ARTERIAL BLOOD SPECIMENOrdering Facility: [facility] Address: [address] [address] Performed By: #### A LLBG ####[facility]ORATORYCLIA [id number] [address] O2 THERAPY Ventilator Normal [facility] Comment on above: Order Comment: Speci men Type: ARTERIAL BLOOD SPECIMENOrdering Facility: [facility] Address: [address] [place] [address] Performed By: #### A LLBG ####[facility]ATORYCLIA [id number] [address] [place] Oxygen (Bld) [Partial pressure] 136 mm Hg High 85-95 [facility] Comment on above: Order Comment: Speci men Type: ARTERIAL BLOOD SPECIMENOrdering Facility: [facility] Address: [address] [place] [address] Performed By: #### A LLBG ####[facility]ATORYCLIA [id number] [address] Oxygen adjusted to patient's actual temperature (Bld) [Partial pressure] 137 mmHg High 85-95 [facility] Comment on above: Order Comment: Speci men Type: ARTERIAL BLOOD SPECIMENOrdering Facility: [facility] Address: [address] [address] Performed By: #### A LLBG ####[facility]ATORYCLIA [id number] [address] [place] Oxyhemoglobin (BldA) [Mass fraction] 95 % Normal 95-98 [facility] Comment on above: Order Comment: Speci men Type: ARTERIAL BLOOD SPECIMENOrdering Facility: [facility] Address: [address] [address] Performed By: #### A LLBG ####[facility]ATORYCLIA [id number] [address] [place] pH (Bld) 7.32 [pH] Low 7.35-7.45 [facility] Comment on above: Order Comment: Speci men Type: ARTERIAL BLOOD SPECIMENOrdering Facility: [facility] Address: [address] [place] [address] Performed By: #### A LLBG ####[facility]ATORYCLIA [id number] [address] [place] pH adjusted to patient's actual temperature (Bld) 7.32 Low 7.35-7.45 [facility] Comment on above: Order Comment: Speci men Type: ARTERIAL BLOOD SPECIMENOrdering Facility: [facility] Address: [address] [place] [address] Performed By: #### A LLBG ####[facility]ATORYCLIA [id number] [address] [place] Potassium [Moles/Vol] 4.3 mmol/L Normal 3.5-5.0 [facility] Comment on above: Order Comment: Speci men Type: ARTERIAL BLOOD SPECIMENOrdering Facility: [facility] Address: [address] [place] [address] Performed By: #### A LLBG ####[facility]ATORYCLIA [id number] [address] [place] Sodium [Moles/Vol] 135 mmol/L Low 136-144 [facility] Comment on above: Order Comment: Speci men Type: ARTERIAL BLOOD SPECIMENOrdering Facility: [facility] Address: [address] [place] [address] Performed By: #### A LLBG ####[facility]ATORYCLIA [id number] [address] [place] Base deficit (BldA) [Moles/Vol] -1 mmol/L Normal -2-0 [facility] Comment on above: Order Comment: Speci men Type: ARTERIAL BLOOD SPECIMENOrdering Facility: [facility] Address: [address] [place] [address] Performed By: #### A LLBG ####[facility]ATORYCLIA [id number] [address] Body temperature 97.52 [degF] Normal [facility] Comment on above: Order Comment: Speci men Type: ARTERIAL BLOOD SPECIMENOrdering Facility: [facility] Address: [address] [place] [address] Performed By: #### A LLBG ####[facility]ATORYCLIA [id number] [address] [place] Calcium.ionized (BldV) [Mass/Vol] 1.18 mmol/L Normal 1.08-1.30 [facility] Comment on above: Order Comment: Speci men Type: ARTERIAL BLOOD SPECIMENOrdering Facility: [facility] Address: [address] [place] [address] Performed By: #### A LLBG ####[facility]ATORYCLIA [id number] [address] Calcium.ionized adjusted to pH 7.4 (BldA) [Moles/Vol] 1.08 mmol/L Normal 1.08-1.30 [facility] Comment on above: Order Comment: Speci men Type: ARTERIAL BLOOD SPECIMENOrdering Facility: [facility] Address: [address] [place] [address] Performed By: #### A LLBG ####[facility]ATORYCLIA [id number] [address] [place] Carboxyhemoglobin (BldA) [Mass fraction] 3.0 % High 0.0-2.0 [facility] Comment on above: Order Comment: Speci men Type: ARTERIAL BLOOD SPECIMENOrdering Facility: [facility] Address: [address] [place] [address] Result Comment: Carb oxyhemoglobin Reference Range for Smokers: 2.0-8.0% Performed By: #### A LLBG ####[facility]ATORYCLIA [id number] [address] [place] Chloride [Moles/Vol] 104 mmol/L Normal 102-109 [facility] Comment on above: Order Comment: Speci men Type: ARTERIAL BLOOD SPECIMENOrdering Facility: [facility] Address: [address] [address] Performed By: #### A LLBG ####[facility]ORATORYCLIA [id number] [address] [place] CO2 (Bld) [Partial pressure] 63 mm Hg High 36-46 [facility] Comment on above: Order Comment: Speci men Type: ARTERIAL BLOOD SPECIMENOrdering Facility: [facility] Address: [address] [place] [address] Performed By: #### A LLBG ####[facility]ATORYCLIA [id number] [address] [place] CO2 [Moles/Vol] 25 mmol/L Normal 22-28 [facility] Comment on above: Order Comment: Speci men Type: ARTERIAL BLOOD SPECIMENOrdering Facility: [facility] Address: [address] [place] [address] Performed By: #### A LLBG ####[facility]ORATORYCLIA [id number] [address] [place] CO2 adjusted to patient's actual temperature (Bld) [Partial pressure] 61 mmHg High 36-46 [facility] Comment on above: Order Comment: Speci men Type: ARTERIAL BLOOD SPECIMENOrdering Facility: [facility] Address: [address] [address] Performed By: #### A LLBG ####[facility]ORATORYCLIA [id number] [address] [place] FIO2 80 % Normal [facility] Comment on above: Order Comment: Speci men Type: ARTERIAL BLOOD SPECIMENOrdering Facility: [facility] Address: [address] [address] Performed By: #### A LLBG ####[facility]ORATORYCLIA [id number] [address] [place] Glucose [Mass/Vol] 162 mg/dL High 60-105 [facility] Comment on above: Order Comment: Speci men Type: ARTERIAL BLOOD SPECIMENOrdering Facility: [facility] Address: [address] [place] [address] Performed By: #### A LLBG ####[facility]ATORYCLIA [id number] [place] [address] [place] HCO3 (Bld) [Moles/Vol] 26 mmol/L Normal 22-26 [facility] Comment on above: Order Comment: Speci men Type: ARTERIAL BLOOD SPECIMENOrdering Facility: [facility] Address: [address] [place] [address] Performed By: #### A LLBG ####[facility]ATORYCLIA [id number] [address] [place] Hematocrit (Bld) [Volume fraction] 29.1 % Low 36.0-46.0 [facility] Comment on above: Order Comment: Speci men Type: ARTERIAL BLOOD SPECIMENOrdering Facility: [facility] Address: [address] [place] [address] Performed By: #### A LLBG ####[facility]ATORYCLIA [id number] [place] [address] [place] Hemoglobin (Bld) [Mass/Vol] 9.4 g/dL Low 11.5-15.5 [facility] Comment on above: Order Comment: Speci men Type: ARTERIAL BLOOD SPECIMENOrdering Facility: [facility] Address: [address] [place] [address] Performed By: #### A LLBG ####[facility]ATORYCLIA [id number] [address] [place] Lactate [Moles/Vol] 0.5 mmol/L Normal 0.5-2.2 [facility] Comment on above: Order Comment: Speci men Type: ARTERIAL BLOOD SPECIMENOrdering Facility: [facility] Address: [address] [place] [address] Performed By: #### A LLBG ####[facility]ORATORYCLIA [id number] [address] Methemoglobin (Bld) [Mass fraction] 1.1 % Normal 0.0-1.5 [facility] Comment on above: Order Comment: Speci men Type: ARTERIAL BLOOD SPECIMENOrdering Facility: [facility] Address: [address] [place] [address] Performed By: #### A LLBG ####[facility]ATORYCLIA [id number] [address] O2 THERAPY Ventilator Normal [facility] Comment on above: Order Comment: Speci men Type: ARTERIAL BLOOD SPECIMENOrdering Facility: [facility] Address: [address] [place] [address] Performed By: #### A LLBG ####[facility]ATORYCLIA [id number] [address] [place] Oxygen (Bld) [Partial pressure] 91 mm Hg Normal 85-95 [facility] Comment on above: Order Comment: Speci men Type: ARTERIAL BLOOD SPECIMENOrdering Facility: [facility] Address: [address] [place] [address] Performed By: #### A LLBG ####[facility]ATORYCLIA [id number] [address] Oxygen adjusted to patient's actual temperature (Bld) [Partial pressure] 88 mmHg Normal 85-95 [facility] Comment on above: Order Comment: Speci men Type: ARTERIAL BLOOD SPECIMENOrdering Facility: [facility] Address: [address] [place] [address] Performed By: #### A LLBG ####[facility]ATORYCLIA [id number] [address] [place] Oxyhemoglobin (BldA) [Mass fraction] 92 % Low 95-98 [facility] Comment on above: Order Comment: Speci men Type: ARTERIAL BLOOD SPECIMENOrdering Facility: [facility] Address: [address] [place] [address] Performed By: #### A LLBG ####[facility]ATORYCLIA [id number] [address] PEEP/CPAP 10 cmH2O Normal [facility] Comment on above: Order Comment: Speci men Type: ARTERIAL BLOOD SPECIMENOrdering Facility: [facility] Address: [address] [place] [address] Performed By: #### A LLBG ####[facility]ORYCLIA [id number] [address] [place] pH (Bld) 7.24 [pH] Low 7.35-7.45 [facility] Comment on above: Order Comment: Speci men Type: ARTERIAL BLOOD SPECIMENOrdering Facility: [facility] Address: [address] [place] [address] Performed By: #### A LLBG ####[facility]ATORYCLIA [id number] [address] pH adjusted to patient's actual temperature (Bld) 7.25 Low 7.35-7.45 [facility] Comment on above: Order Comment: Speci men Type: ARTERIAL BLOOD SPECIMENOrdering Facility: [facility] Address: [address] [place] [address] Performed By: #### A LLBG ####[facility]ATORYCLIA [id number] [address] [place] Potassium [Moles/Vol] 4.9 mmol/L Normal 3.5-5.0 [facility] Comment on above: Order Comment: Speci men Type: ARTERIAL BLOOD SPECIMENOrdering Facility: [facility] Address: [address] [place] [address] Performed By: #### A LLBG ####[facility]ATORYCLIA [id number] [address] SET VENTILATOR RESPIRATORY RATE (BPM) 16 BPM Normal [facility] Comment on above: Order Comment: Speci men Type: ARTERIAL BLOOD SPECIMENOrdering Facility: [facility] Address: [address] [id number] Performed By: #### A LLBG ####[facility]ATORYCLIA [id number] [address] STATES OF [facility] Sodium [Moles/Vol] 134 mmol/L Low 136-144 [facility] Comment on above: Order Comment: Speci men Type: ARTERIAL BLOOD SPECIMENOrdering Facility: [facility] Address: [address] [address] Performed By: #### A LLBG ####[facility]ATORYCLIA [id number] [address] [place] Bacteria Bld Culton 12-25-19 Bacteria identified Cx Nom (Bld) CULTURE, BLOOD: No growth 5 days Normal [facility] Comment on above: Performed By: #### 6 00-7 ####[facility]ATORYCLIA [id number] [address] Bacteria identified Cx Nom (Bld) CULTURE, BLOOD: No growth 5 days Normal [facility] Comment on above: Performed By: #### 6 00-7 ####[facility]ATORYCLIA [id number] [address] [place] Bacteria Spec Anaerobe Culto n 12-25-2022 Bacteria identified Anaer cx Nom (Unsp spec) CULTURE, ANAEROBE: Moderate mixed anaerobic nando. No Bacteroides fragilis group isolated. No Clostridium perfringens isolated. Normal [facility] Comment on above: Performed By: #### 1 1475-1, 64331-6, 63-3 ####[facility]ATORYCLIA [id number] [address] [place] Bacteria Tiss Culton 023 Bacteria identified Cx Nom (Tiss) ORGANISM ID: 1 Few Streptococcus anginosus ORGANISM ID: 2 Rare skin nando GRAM STAIN: Few Gram positive cocci Rare Gram negative bacilli No Polymorphonuclear Leukocytes Abnormal [facility] Comment on above: Performed By: #### 1 1475-1, 58254-1, 63-3 ####[facility]ATORYCLIA [id number] [place] [address] [place] Basic metabolic 2000 panelon 12-25-2022 Anion gap [Moles/Vol] 11 mmol/L Normal 9-18 [facility] Comment on above: Order Comment: Speci men Type: BLOOD SPECIMENOrdering Facility: [facility] Address: [address] [place] [address] Performed By: #### 2 4321-2 ####[facility]ATORYCLIA [id number] [place] [address] [place] Calcium [Mass/Vol] 8.3 mg/dL Low 8.5-10.2 [facility] Comment on above: Order Comment: Speci men Type: BLOOD SPECIMENOrdering Facility: [facility] Address: [address] [place] [address] Performed By: #### 2 4321-2 ####[facility]ATORYCLIA [id number] [address] [place] Chloride [Moles/Vol] 100 mmol/L Normal 97-105 [facility] Comment on above: Order Comment: Speci men Type: BLOOD SPECIMENOrdering Facility: [facility] Address: [address] [place] [address] Performed By: #### 2 4321-2 ####[facility]ATORYCLIA [id number] [address] [place] CO2 [Moles/Vol] 26 mmol/L Normal 22-30 [facility] Comment on above: Order Comment: Speci men Type: BLOOD SPECIMENOrdering Facility: [facility] Address: [address] [place] [address] Performed By: #### 2 4321-2 ####[facility]ATORYCLIA [id number] [address] [place] Creatinine [Mass/Vol] 1.69 mg/dL High 0.58-0.96 [facility] Comment on above: Order Comment: Speci men Type: BLOOD SPECIMENOrdering Facility: [facility] Address: [address] [place], [place] [id number] Performed By: #### 2 4321-2 ####[facility]CL[facility] [id number] [address] [place] ESTIMATED GLOMERULAR FILTRATION RATE 38 mL/min/1.73m??? Low >=60 [facility] Comment on above: Order Comment: Specernesto dahiana Type: BLOOD SPECIMENOrdering Facility: [facility] Address: [address] [address] Result Comment: Gayle mated Glomerular Filtration Rate [...] actual GFR. Performed By: #### 2 4321-2 ####[facility]ITALIA [id number] [place] [address] [place] Glucose [Mass/Vol] 123 mg/dL High 74-99 [facility] Comment on above: Order Comment: Roberto talbot Type: BLOOD SPECIMENOrdering Facility: [facility] Address: [address] [place] [address] Result Comment: The [place] [employer] [...] 2016.39(Suppl 1). Performed By: #### 2 4321-2 ####[facility]ORATORYCLIA [id number] [place] [address] [place] Potassium [Moles/Vol] 5.1 mmol/L Normal 3.7-5.1 [facility] Comment on above: Order Comment: Speci men Type: BLOOD SPECIMENOrdering Facility: [facility] Address: [address] [place] [address] Performed By: #### 2 4321-2 ####[facility] LABORATORYCLIA [id number] [place] [address] [place] Sodium [Moles/Vol] 137 mmol/L Normal 136-144 [facility] Comment on above: Order Comment: Speci men Type: BLOOD SPECIMENOrdering Facility: [facility] Address: [address] [place] [address] Performed By: #### 2 4321-2 ####[facility]ATORYCLIA [id number] [place] [address] [place] Urea nitrogen [Mass/Vol] 30 mg/dL High 7-21 [facility] Comment on above: Order Comment: Speci men Type: BLOOD SPECIMENOrdering Facility: [facility] Address: [address] [place] [address] Performed By: #### 2 4321-2 ####[facility]ORATORYCLIA [id number] [place] [address] [place] Anion gap [Moles/Vol] 10 mmol/L Normal 9-18 [facility] Comment on above: Order Comment: Speci men Type: BLOOD SPECIMENOrdering Facility: [facility] Address: [address] [place] [address] Performed By: #### 2 4321-2 ####[facility]ATORYCLIA [id number] [place] [address] [place] Calcium [Mass/Vol] 8.6 mg/dL Normal 8.5-10.2 [facility] Comment on above: Order Comment: Speci men Type: BLOOD SPECIMENOrdering Facility: [facility] Address: [address] [place] [address] Performed By: #### 2 4321-2 ####[facility]ATORYCLIA [id number] [address] [place] Chloride [Moles/Vol] 101 mmol/L Normal 97-105 [facility] Comment on above: Order Comment: Speci men Type: BLOOD SPECIMENOrdering Facility: [facility] Address: [address] [place] [address] Performed By: #### 2 4321-2 ####[facility]ATORYCLIA [id number] [address] [place] CO2 [Moles/Vol] 26 mmol/L Normal 22-30 [facility] Comment on above: Order Comment: Speci men Type: BLOOD SPECIMENOrdering Facility: [facility] Address: [address] [place] [address] Performed By: #### 2 4321-2 ####[facility]ITALCLIA [id number] [address] [place] Creatinine [Mass/Vol] 1.52 mg/dL High 0.58-0.96 [facility] Comment on above: Order Comment: Speci men Type: BLOOD SPECIMENOrdering Facility: [facility] Address: [address] [place] [address] Performed By: #### 2 4321-2 ####[facility] LABORATORYCLIA [id number] [address] ESTIMATED GLOMERULAR FILTRATION RATE 43 mL/min/1.73m??? Low >=60 [facility] Comment on above: Order Comment: Speci men Type: BLOOD SPECIMENOrdering Facility: [facility] Address: [address] [place] [address] Result Comment: Gayle mated Glomerular Filtration Rate [...] actual GFR. Performed By: #### 2 4321-2 ####[facility] LABORATORYCLIA [id number] [place] [address] [place] Glucose [Mass/Vol] 92 mg/dL Normal 74-99 [facility] Comment on above: Order Comment: Roberto dahiana Type: BLOOD SPECIMENOrdering Facility: [facility] Address: [address] [place] [address] Result Comment: The [place] [employer] [...] 2016.39(Suppl 1). Performed By: #### 2 4321-2 ####[facility] LABORATORYCLIA [id number] [place] [address] [place] Potassium [Moles/Vol] 4.9 mmol/L Normal 3.7-5.1 [facility] Comment on above: Order Comment: Roberto dahiana Type: BLOOD SPECIMENOrdering Facility: [facility] Address: [address] [place] [address] Performed By: #### 2 4321-2 ####[facility] LABORATORYCLIA [id number] [place] [address] [place] Sodium [Moles/Vol] 137 mmol/L Normal 136-144 [facility] Comment on above: Order Comment: Roberto dahiana Type: BLOOD SPECIMENOrdering Facility: [facility] Address: [address] [place] [address] Performed By: #### 2 4321-2 ####[facility] LABORATORYCLIA [id number] [place] [address] [place] Urea nitrogen [Mass/Vol] 29 mg/dL High 7-21 [facility] Comment on above: Order Comment: Speci men Type: BLOOD SPECIMENOrdering Facility: [facility] Address: [address] [place] [address] Performed By: #### 2 4321-2 ####[facility] LABORATORYCLIA [id number] [address] CBC panel Auto (Bld)on 12-25 Erythrocyte distribution width (RBC) [Ratio] 16.6 % High 11.5-15.0 [facility] Comment on above: Order Comment: Speci men Type: BLOOD SPECIMENOrdering Facility: [facility] Address: [address] [place] [address] Performed By: #### 5 8410-2 ####[facility] LABORATORYCLIA [id number] [address] Hematocrit (Bld) [Volume fraction] 32.5 % Low 36.0-46.0 [facility] Comment on above: Order Comment: Speci men Type: BLOOD SPECIMENOrdering Facility: [facility] Address: [address] [place] [address] Performed By: #### 5 8410-2 ####[facility] LABORATORYCLIA [id number] [address] Hemoglobin (Bld) [Mass/Vol] 9.7 g/dL Low 11.5-15.5 [facility] Comment on above: Order Comment: Speci men Type: BLOOD SPECIMENOrdering Facility: [facility] Address: [address] [place] [address] Performed By: #### 5 8410-2 ####[facility] LABORATORYCLIA [id number] [address] [place] MCH (RBC) [Entitic mass] 29.2 pg Normal 26.0-34.0 [facility] Comment on above: Order Comment: Speci men Type: BLOOD SPECIMENOrdering Facility: [facility] Address: [address] [place] [address] Performed By: #### 5 8410-2 ####[facility] LABORATORYCLIA [id number] [address] STATES OF [facility] MCHC (RBC) [Mass/Vol] 29.8 g/dL Low 30.5-36.0 [facility] Comment on above: Order Comment: Speci men Type: BLOOD SPECIMENOrdering Facility: [facility] Address: [address] [place] [address] Performed By: #### 5 8410-2 ####[facility] LABORATORYCLIA [id number] [address] [place] MCV (RBC) [Entitic vol] 97.9 fL Normal 80.0-100.0 [facility] Comment on above: Order Comment: Speci men Type: BLOOD SPECIMENOrdering Facility: [facility] Address: [address] [place] [address] Performed By: #### 5 8410-2 ####[facility] LABORATORYCLIA [id number] [address] [place] Nucleated RBC (Bld) [#/Vol] 0.03 10*3/uL High <0.01 [facility] Comment on above: Order Comment: Speci men Type: BLOOD SPECIMENOrdering Facility: [facility] Address: [address] [place] [address] Performed By: #### 5 8410-2 ####[facility] LABORATORYCLIA [id number] [address] [place] Platelet mean volume (Bld) [Entitic vol] 9.5 fL Normal 9.0-12.7 [facility] Comment on above: Order Comment: Speci men Type: BLOOD SPECIMENOrdering Facility: [facility] Address: [address] [place] [address] Performed By: #### 5 8410-2 ####[facility] LABORATORYCLIA [id number] [address] [place] Platelets (Bld) [#/Vol] 323 10*3/uL Normal 150-400 [facility] Comment on above: Order Comment: Speci men Type: BLOOD SPECIMENOrdering Facility: [facility] Address: [address] [address] Performed By: #### 5 8410-2 ####[facility] LABORATORYCLIA [id number] [address] RBC (Bld) [#/Vol] 3.32 10*6/uL Low 3.90-5.20 [facility] Comment on above: Order Comment: Speci men Type: BLOOD SPECIMENOrdering Facility: [facility] Address: [address] [place] [address] Performed By: #### 5 8410-2 ####[facility] LABORATORYCLIA [id number] [address] WBC (Bld) [#/Vol] 19.06 10*3/uL High 3.70-11.00 [facility] Comment on above: Order Comment: Speci men Type: BLOOD SPECIMENOrdering Facility: [facility] Address: [address] [place] [address] Performed By: #### 5 8410-2 ####[facility] LABORATORYCLIA [id number] [address] Erythrocyte distribution width (RBC) [Ratio] 16.5 % High 11.5-15.0 [facility] Comment on above: Order Comment: Speci men Type: BLOOD SPECIMENOrdering Facility: [facility] Address: [address] [place] [address] Performed By: #### 5 8410-2 ####[facility] LABORATORYCLIA [id number] [address] Hematocrit (Bld) [Volume fraction] 32.4 % Low 36.0-46.0 [facility] Comment on above: Order Comment: Speci men Type: BLOOD SPECIMENOrdering Facility: [facility] Address: [address] [place] [address] Performed By: #### 5 8410-2 ####[facility] LABORATORYCLIA [id number] [address] [place] Hemoglobin (Bld) [Mass/Vol] 9.4 g/dL Low 11.5-15.5 [facility] Comment on above: Order Comment: Speci men Type: BLOOD SPECIMENOrdering Facility: [facility] Address: [address] [place] [address] Performed By: #### 5 8410-2 ####[facility] LABORATORYCLIA [id number] [address] MCH (RBC) [Entitic mass] 28.2 pg Normal 26.0-34.0 [facility] Comment on above: Order Comment: Speci men Type: BLOOD SPECIMENOrdering Facility: [facility] Address: [address] [place] [address] Performed By: #### 5 8410-2 ####[facility] LABORATORYCLIA [id number] [address] MCHC (RBC) [Mass/Vol] 29.0 g/dL Low 30.5-36.0 [facility] Comment on above: Order Comment: Speci men Type: BLOOD SPECIMENOrdering Facility: [facility] Address: [address] [place] [address] Performed By: #### 5 8410-2 ####[facility] LABORATORYCLIA [id number] [address] MCV (RBC) [Entitic vol] 97.3 fL Normal 80.0-100.0 [facility] Comment on above: Order Comment: Speci men Type: BLOOD SPECIMENOrdering Facility: [facility] Address: [address] [place] [address] Performed By: #### 5 8410-2 ####[facility] LABORATORYCLIA [id number] [address] Nucleated RBC (Bld) [#/Vol] 10*3/uL Normal <0.01 [facility] Comment on above: Order Comment: Speci men Type: BLOOD SPECIMENOrdering Facility: [facility] Address: [address] [place] [address] Performed By: #### 5 8410-2 ####[facility] LABORATORYCLIA [id number] [address] [place] Platelet mean volume (Bld) [Entitic vol] 9.7 fL Normal 9.0-12.7 [facility] Comment on above: Order Comment: Speci men Type: BLOOD SPECIMENOrdering Facility: [facility] Address: [address] [place] [address] Performed By: #### 5 8410-2 ####[facility] LABORATORYCLIA [id number] [address] [place] Platelets (Bld) [#/Vol] 308 10*3/uL Normal 150-400 [facility] Comment on above: Order Comment: Speci men Type: BLOOD SPECIMENOrdering Facility: [facility] Address: [address] [place] [address] Performed By: #### 5 8410-2 ####[facility] LABORATORYCLIA [id number] [address] [place] RBC (Bld) [#/Vol] 3.33 10*6/uL Low 3.90-5.20 [facility] Comment on above: Order Comment: Speci men Type: BLOOD SPECIMENOrdering Facility: [facility] Address: [address] [place] [address] Performed By: #### 5 8410-2 ####[facility] LABORATORYCLIA [id number] [address] [place] WBC (Bld) [#/Vol] 17.43 10*3/uL High 3.70-11.00 [facility] Comment on above: Order Comment: Speci men Type: BLOOD SPECIMENOrdering Facility: [facility] Address: [address] [place] [address] Performed By: #### 5 8410-2 ####[facility] LABORATORYCLIA [id number] [address] [place] CONSULT PROGon 12-25-2022 CONSULT PROG Normal [facility] CONSULT PROG Normal [facility] CONSULT PROG Normal [facility] ECG COMPLETEon 12-25-2022 ECG COMPLETE Normal [facility] ED NOTEon 12-25-2022 ED NOTE HNO ID: [id number] Author: Claire Sanchez RN Service: Emergency Medicine Author Type: Registered Nurse Type: ED Notes Filed: 12/25/2022 3:16 AM Note Text: Depart to OR Normal [facility] ED NOTE HNO ID: [id number] Author: Claire Sanchez RN Service: Emergency Medicine Author Type: Registered Nurse Type: ED Notes Filed: 12/25/2022 2:39 AM Note Text: Dr. Reyes at bedside to evaluate pt Normal [facility] ED NOTE HNO ID: [id number] Author: Claire Sanchez RN Service: Emergency Medicine Author Type: Registered Nurse Type: ED Notes Filed: 12/25/2022 2:29 AM Note Text: EKG performed at bedside Normal [facility] ED NOTE HNO ID: [id number] Author: Claire Sanchez RN Service: Emergency Medicine Author Type: Registered Nurse Type: ED Notes Filed: 12/25/2022 2:28 AM Note Text: Normal [facility] ED NOTE HNO ID: [id number] Author: Claire Sanchez RN Service: Emergency Medicine Author Type: Registered Nurse Type: ED Notes Filed: 12/25/2022 2:29 AM Note Text: Surgery at bedside Normal [facility] ED NOTE Normal [facility] ED NOTE HNO ID: [id number] Author: Claire Sanchez RN Service: Emergency Medicine Author Type: Registered Nurse Type: ED Notes Filed: 12/25/2022 1:56 AM Note Text: Dr. Saleh at bedside to evaluate pt Normal [facility] ED NOTE HNO ID: [id number] Author: Sirena Redman RN Service: ? Author Type: Registered Nurse Type: ED Notes Filed: 12/25/2022 1:44 AM Note Text: Bed: 01-ED Expected date: Expected time: Means of arrival: Comments: Inguinal issue Normal [facility] ED PROV NOTEon 12-25-2022 ED PROV NOTE Normal [facility] FLUABV+SARS-CoV-2+RSV Pnl Re sp SURESH+probeon 12-25-2022 FLUABV+SARS-CoV-2+RSV Pnl Resp SURESH+probe Normal [facility] Comment on above: Performed By: #### 9 5941-1 ####[facility] LABORATORYCLIA [id number] [address] [place] HIGH SENSITIVITY TROPONIN To n 12-25-2022 HIGH SENSITIVITY CATERINA 23 ng/L High <12 [facility] Comment on above: Order Comment: Roberto dahiana Type: BLOOD SPECIMENOrdering Facility: [facility] Address: [address] [place] [address] Result Comment: When assessing risk for acute [...] day MACE. Performed By: #### H STNT ####[facility] LABORATORYCLIA [id number] [address] HIGH SENSITIVITY CATERINA 34 ng/L High <12 [facility] Comment on above: Order Comment: Roberto talbot Type: BLOOD SPECIMENOrdering Facility: [facility] Address: [address] [place] [address] Result Comment: When assessing risk for acute [...] day MACE. Performed By: #### H STNT ####[facility] LABORATORYCLIA [id number] [address] [place] HISTORY PHYSICALon HISTORY PHYSICAL Normal [facility] Lactate (Bld) [Moles/Vol]on 12-25-2022 Lactate [Moles/Vol] 0.8 mmol/L Normal 0.5-2.2 [facility] Comment on above: Order Comment: Speci men Type: BLOOD SPECIMENOrdering Facility: [facility] Address: [address] [place] [id number] Performed By: #### 3 2693-4 ####[facility] LABORATORYCLIA [id number] [address] Microorganism Spec Culton Microorganism identified Cx Nom (Unsp spec) CULTURE, FUNGAL: No Fungus isolated after 28 days FUNGAL SMEAR: No fungus seen Normal [facility] Comment on above: Performed By: #### 1 1475-1, 19089-3, 635-3 ####[facility] LABORATORYCLIA [id number] [address] Microorganism identified Cx Nom (Unsp spec) CULTURE, AFB: No Acid Fast Bacilli isolated after 42 days AFB STAIN: No acid fast bacilli seen by flurochrome stain Normal [facility] Comment on above: Performed By: #### 1 1475-1, 76081-7, 635-3 ####[facility] LABORATORYCLIA [id number] [address] [place] NUTRITIONon 12-25-2022 NUTRITION Normal [facility] OPERATIVE NOon 12-25-2022 OPERATIVE NO Normal [facility] PT panel Coag (PPP)on 2022 INR Coag (PPP) [Relative time] 1.1 {INR} Normal 0.9-1.3 [facility] Comment on above: Order Comment: Speci men Type: BLOOD SPECIMENOrdering Facility: [facility] Address: [place] [address] Result Comment: Erika min K Antagonist (VKA) [...] al. Chest 2012, 141:7S-47SNishimura RA, et al. [facility] 2017, 70: 252-289 Performed By: #### 3 4528-0 ####[facility] LABORATORYCLIA [id number] [place] [address] [place] PT Coag (PPP) [Time] 11.6 s Normal 9.7-13.0 [facility] Comment on above: Order Comment: Roberto talbot Type: BLOOD SPECIMENOrdering Facility: [facility] Address: [address] [place] [address] Performed By: #### 3 4528-0 ####[facility] LABORATORYCLIA [id number] [address] STAPH AUREUS PCRon S. aureus and MRSA panel SURESH+probe (Nose) Abnormal Negative [facility] Comment on above: Order Comment: Roberto talbot Type: SWAB OF INTERNAL NOSEOrdering Facility: [facility] Address: [address] [place] [address] Result Comment: Posi tive for Staphylococcus aureus by PCR.Positive for MRSA by PCR Performed By: #### S APCR ####[facility] LABORATORYCLIA [id number] [address] [place] SURGICAL PATHOLOGYon 023 CASE REPORT Normal [facility] Comment on above: Order Comment: Roberto talbot Type: TISSUE SPECIMENOrdering Facility: [facility] Address: [address] [place] [address] Result Comment: Surg ical Pathology Report Case: [id number] Provider: Zackery Leblanc MD Collected: 12/25/2022 04:15 AMOrdering Location: [facility] Received: 12/25/2022 08:34 AMPathologist: Raypecimen: DEBRIDEMENT, LEFT GROIN WOUND Performed By: #### S ####[facility] LABORATORYCLIA [id number] [address] CLINICAL HISTORY Normal [facility] Comment on above: Order Comment: Speci men Type: TISSUE SPECIMENOrdering Facility: [facility] Address: [address] [place] [address] Result Comment: Pre- op diagnosis:Necrotizing soft tissue infection [M79.89] Performed By: #### S ####[facility] LABORATORYCLIA [id number] [address] DIAGNOSIS COMMENT Correlation with microbiologic studies is necessary. [facility] Comment on above: Order Comment: Speci men Type: TISSUE SPECIMENOrdering Facility: [facility] Address: [address] [place] [address] Performed By: #### S ####[facility] LABORATORYCLIA [id number] [address] FINAL DIAGNOSIS [facility] Comment on above: Order Comment: Speci men Type: TISSUE SPECIMENOrdering Facility: [facility] Address: [address] [place] [address] Result Comment: A. L eft groin wound, debridement:- Skin and soft tissue with suppurative acute inflammation and focal gangrenous necrosis. See comment. Performed By: #### S ####[facility] LABORATORYCLIA [id number] [address] FINAL PERFORMING LAB Normal [facility] Comment on above: Order Comment: Speci men Type: TISSUE SPECIMENOrdering Facility: [facility] Address: [address] [place] [address] Result Comment: Diag nostic interpretation performed at [facility], [address] [place] [address] CLIA# [id number] Director: Faraz Sawant M.D. Performed By: #### S ####[facility] LABORATORYCLIA [id number] [address] GROSS DESCRIPTION A. DEBRIDEMENT Normal [facility] Comment on above: Order Comment: Speci men Type: TISSUE SPECIMENOrdering Facility: [facility] Address: [address] [place] [address] Result Comment: A. R eceived in formalin labeled left groin wound are multiple brennan-pink to brennan-green rubbery and ischemic appearing segments of tissue aggregating to 15.0 x 7.8 x 3.5 cm. Multiple segments of skin are present and display a jje-sdcz-kdq to pink-green ischemic appearance. Import/Export Specialist sections are submitted in formalin in 3 cassettes. Gross examination performed at [facility], [address] [place], [place] [address]KVB December 25, 2022 11:27 AM Performed By: #### S ####[facility] LABORATORYCLIA [id number] [address] TYPE + SCREENon 12-25-2022 ABO O [facility] Comment on above: Order Comment: Speci men Type: BLOOD SPECIMENOrdering Facility: [facility] Address: [address] [place] [address] Performed By: #### T SCR ####[facility]LOOD BANKCLIA [id number] [address] HISTORICAL AB SCR STATUS Negative [facility] Comment on above: Order Comment: Speci men Type: BLOOD SPECIMENOrdering Facility: [facility] Address: [address] [place] [address] Performed By: #### T SCR ####[facility] BLO[facility] BANKCLIA [id number] [address] Rh Nom (Bld) Negative [facility] Comment on above: Order Comment: Speci men Type: BLOOD SPECIMENOrdering Facility: [facility] Address: [address] [place] [address] Performed By: #### T SCR ####[facility] BLOOD BANKCLIA [id number] [place] [address] [facility] TYPE AND SCREEN EXPIRATION 12/28/2022 23:59 Normal [facility] Comment on above: Order Comment: Speci men Type: BLOOD SPECIMENOrdering Facility: [facility] Address: [address] [place] [address] Performed By: #### T SCR ####[facility] BLOOD BANKCLIA [id number] [place] [address] [facility] XR CHEST 1V FRONTALon 2022 XR CHEST 1V FRONTAL Normal [facility] XR CHEST 1V FRONTAL Normal [facility] Absolute lymphocyte countOrd ered By: Dr. Kaiser on 12-24-2022 Lymphocytes Auto (Unsp spec) [#/Vol] 2.75 10*3/uL 0.83-4.51 [facility] Basophil percentageOrdered B y: Dr. Kaiser on 12-24-2022 Basophil percentage 99 mg/dL 74-106 [facility] Basophil percentage 7.2 g/dL 6.4-8.2 [facility] Basophil percentage 0.20 mg/dL 0.20-1.00 [facility] Basophil percentage 134 mmol/L 136-145 [facility] Basophil percentage 4.6 mmol/L 3.5-5.1 [facility] Basophil percentage 102 mmol/L 98-107 [facility] Basophil percentage 3.3 mmol/L 0.4-2.0 [facility] Basophils (Bld) [#/Vol] 16.3 10*3/uL 4.4-11.0 [facility] Basophils (Bld) [#/Vol] 12.3 10*3/uL 2.0-7.7 [facility] Basophils/100 WBC (Bld) 0.6 % 0-1 [facility] Basophils/100 WBC (Bld) 75.3 % 47-70 [facility] Basophils/100 WBC (Bld) 2.0 % 0-5 [facility] Bilirubin [Mass/Vol] 0.20 mg/dL 0.20-1.00 [facility] Comment on above: For patients on eltr ombopag therapy, use of Dimension [place] TBIL is not recommended. Chloride [Moles/Vol] 102 mmol/L 98-107 [facility] Eosinophils/100 WBC (Bld) 2.0 % 0-5 [facility] Glucose [Mass/Vol] 99 mg/dL 74-106 [facility] Lactate [Moles/Vol] 3.3 mmol/L 0.4-2.0 [facility] Comment on above: Critical Result(s) C alled at: 22:26:10 12/24/2022 by: Rossy carter TO MMARTIN2. Results read back by same. Neutrophils (Bld) [#/Vol] 12.3 10*3/uL 2.0-7.7 [facility] Neutrophils/100 WBC (Bld) 75.3 % 47-70 [facility] Potassium [Moles/Vol] 4.6 mmol/L 3.5-5.1 [facility] Protein [Mass/Vol] 7.2 g/dL 6.4-8.2 [facility] Sodium [Moles/Vol] 134 mmol/L 136-145 [facility] WBC (Bld) [#/Vol] 16.3 10*3/uL 4.4-11.0 [facility] Blood erythrocytes count (nu mber/volume)Ordered By: Dr. Kaiser on 12-24-2022 RBC (Bld) [#/Vol] 3.52 10*6/uL 4.2-5.4 [facility] Blood hemoglobin measurement (mass/volume)Ordered By: Dr. Kaiser on 12-24-2022 Hemoglobin (Bld) [Mass/Vol] 10.2 g/dL 12.0-15.0 [facility] Blood lymphocytes/100 leukoc ytesOrdered By: Dr. Kaiser on 12-24-2022 Lymphocytes/100 WBC (Bld) 16.9 % 19-41 [facility] Blood monocytes/100 leukocyt esOrdered By: Dr. Kaiser on 12-24-2022 Monocytes/100 WBC (Bld) 4.2 % 0-10 [facility] Blood platelet mean volumeOr dered By: Dr. Kaiser on 12-24-2022 Platelet mean volume (Bld) [Entitic vol] 9.3 fL 6.2-12.0 [facility] Determination of erythrocyte mean corpuscular volume (MCV)Ordered By: Dr. Kaiser on 12-24-2022 MCV (RBC) [Entitic vol] 94.6 fL 81-99 [facility] Hematocrit Auto (Bld) [Volum e fraction]Ordered By: Dr. Kaiser on 12-24-2022 Hematocrit (Bld) [Volume fraction] 33.3 % 37-47 [facility] INR in Blood by Coagulation assayOrdered By: Dr. Kaiser on 12-24-2022 INR Coag (Bld) [Relative time] 1.3 {INR} [facility] Laboratory - Chemistry and C hemistry - challengeOrdered By: Dr. Kaiser on 12-24-2022 ALP [Catalytic activity/Vol] 60 U/L 45-117 [facility] ALT [Catalytic activity/Vol] 41 U/L 13-56 [facility] CO2 [Moles/Vol] 26.0 mmol/L 21.0-32.0 [facility] Globulin (S) [Mass/Vol] 4.8 g/dL 2.2-4.2 [facility] Urea nitrogen/Creatinine [Mass ratio] 16.3 mg/mg 10-20 [facility] Laboratory - CoagulationOrde red By: Dr. Kaiser on 12-24-2022 aPTT Coag (Bld) [Time] 43.3 s 24.1-36.2 [facility] PT Coag (PPP) [Time] 15.9 s 11.7-14.9 [facility] - Hematology and Cell countsOrdered By: Dr. Kaiser on 12-24-2022 Erythrocyte distribution width (RBC) [Entitic vol] 56.8 fL 35.1-43.9 [facility] Erythrocyte distribution width (RBC) [Ratio] 16.3 % 11.6-14.6 [facility] Immature granulocytes/100 WBC (Bld) 1.000 % 0.0-0.9 [facility] Comment on above: IG% - Immature Granu locytes (promyelocytes, myelocytes and metamyelocytes) > 1% indicates that a LEFT SHIFT is Present. MCH (RBC) [Entitic mass] 29.0 pg 27.0-32.0 [facility] Nucleated RBC/100 WBC (Bld) [Ratio] 0.1 % 0-5 [facility] MCHC Auto (RBC) [Mass/Vol]Or dered By: Dr. Kaiser on 12-24-2022 MCHC (RBC) [Mass/Vol] 30.6 g/dL 32-36 [facility] No Panel InformationOrdered By: Dr. Kaiser on 12-24-2022 Estimated Creatinine Clearance Calc 40.17 ml/min [facility] Estimated GFR (MDRD) Amer 41 mL/min >60 [facility] Comment on above: GFR Calc Estimated GFR (MDRD) Non-Af Amer 34 mL/min >60 [facility] Comment on above: Non- GFR Calc 29.0 pg 27.0-32.0 [facility] 16.3 % 11.6-14.6 [facility] 56.8 fl 35.1-43.9 [facility] 1.000 % 0.0-0.9 [facility] 0.1 % 0-5 [facility] 15.9 SECONDS 11.7-14.9 [facility] 43.3 Seconds 24.1-36.2 [facility] 34 mL/min >60 [facility] 41 mL/min >60 [facility] 40.17 ml/min [facility] 16.3 RATIO 10-20 [facility] 4.8 g/dL 2.2-4.2 [facility] 60 U/L 45-117 [facility] 41 U/L 13-56 [facility] 26.0 mmol/L 21.0-32.0 [facility] Platelets bldOrdered By: Dr. Kaiser on 12-24-2022 Platelets (Bld) [#/Vol] 323 10*3/uL 150-450 [facility] Serum or plasma albumin yunior urement (mass/volume)Ordered By: Dr. Kaiser on 12-24-2022 Albumin [Mass/Vol] 2.4 g/dL 3.2-5.0 [facility] Serum or plasma albumin/glob ulin mass ratioOrdered By: Dr. Kaiser on 12-24-2022 Albumin/Globulin [Mass ratio] 0.5 {ratio} 0.9-2.4 [facility] Serum or plasma calcium yunior urement (mass/volume)Ordered By: Dr. Kaiser on 12-24-2022 Calcium [Mass/Vol] 8.7 mg/dL 8.5-10.1 [facility] Serum or plasma creatinine m easurement (mass/volume)Ordered By: Dr. Kaiser on 12-24-2022 Creatinine [Mass/Vol] 1.72 mg/dL 0.55-1.02 [facility] Comment on above: The validity of the calculated GFR & GFRAA in patients over 70 years has not been determined. Clinical correlation is essential. Serum or plasma urea nitroge n measurement (mass/volume)Ordered By: Dr. Kaiser on 12-24-2022 Urea nitrogen [Mass/Vol] 28 mg/dL 7-18 [facility] Thin prep Papanicolaou smear with manual screeningOrdered By: Dr. Kaiser on 12-24-2022 Thin prep Papanicolaou smear with manual screening 36 U/L 15-37 [facility] Thin prep Papanicolaou smear with manual screening 6 5-15 [facility] Absolute lymphocyte countOrd ered By: Dr. Wilkes on 12-20-2022 Lymphocytes Auto (Unsp spec) [#/Vol] 1.45 10*3/uL 0.83-4.51 [facility] Basophil percentageOrdered B y: Dr. Wilkes on 12-20-2022 Basophil percentage 170 mg/dL 74-106 [facility] Basophil percentage 136 mmol/L 136-145 [facility] Basophil percentage 4.8 mmol/L 3.5-5.1 [facility] Basophil percentage 103 mmol/L 98-107 [facility] Basophils (Bld) [#/Vol] 13.8 10*3/uL 4.4-11.0 [facility] Basophils (Bld) [#/Vol] 11.2 10*3/uL 2.0-7.7 [facility] Basophils/100 WBC (Bld) 0.4 % 0-1 [facility] Basophils/100 WBC (Bld) 81.4 % 47-70 [facility] Basophils/100 WBC (Bld) 0.7 % 0-5 [facility] Chloride [Moles/Vol] 103 mmol/L 98-107 [facility] Eosinophils/100 WBC (Bld) 0.7 % 0-5 [facility] Glucose [Mass/Vol] 170 mg/dL 74-106 [facility] Comment on above: Fasting Glucose resu lt greater than or equal to 126 mg/dL suggests DIABETES MELLITUS per A.D.A. criteria. Neutrophils (Bld) [#/Vol] 11.2 10*3/uL 2.0-7.7 [facility] Neutrophils/100 WBC (Bld) 81.4 % 47-70 [facility] Potassium [Moles/Vol] 4.8 mmol/L 3.5-5.1 [facility] Sodium [Moles/Vol] 136 mmol/L 136-145 [facility] WBC (Bld) [#/Vol] 13.8 10*3/uL 4.4-11.0 [facility] Blood erythrocytes count (nu mber/volume)Ordered By: Dr. Wilkes on 12-20-2022 RBC (Bld) [#/Vol] 3.65 10*6/uL 4.2-5.4 [facility] Blood hemoglobin measurement (mass/volume)Ordered By: Dr. Wilkes on 12-20-2022 Hemoglobin (Bld) [Mass/Vol] 10.5 g/dL 12.0-15.0 [facility] Blood lymphocytes/100 leukoc ytesOrdered By: Dr. Wilkes on 12-20-2022 Lymphocytes/100 WBC (Bld) 10.5 % 19-41 [facility] Blood monocytes/100 leukocyt esOrdered By: Dr. Wilkes on 12-20-2022 Monocytes/100 WBC (Bld) 6.3 % 0-10 [facility] Blood platelet mean volumeOr dered By: Dr. Wilkes on 12-20-2022 Platelet mean volume (Bld) [Entitic vol] 10.4 fL 6.2-12.0 [facility] Determination of erythrocyte mean corpuscular volume (MCV)Ordered By: Dr. Wilkes on 12-20-2022 MCV (RBC) [Entitic vol] 94.5 fL 81-99 [facility] Glucose Glucometer (BldC) [M ass/Vol]Ordered By: Dr. Wilkes on 12-20-2022 Glucose [Mass/Vol] 289 mg/dL 74-106 [facility] Comment on above: MANAGEMENT OF PATIEN T CARE PER NURSING PROTOCOL Hematocrit Auto (Bld) [Volum e fraction]Ordered By: Dr. Wilkes on 12-20-2022 Hematocrit (Bld) [Volume fraction] 34.5 % 37-47 [facility] Laboratory - Chemistry and C hemistry - challengeOrdered By: Dr. Wilkes on 12-20-2022 CO2 [Moles/Vol] 27.0 mmol/L 21.0-32.0 [facility] Urea nitrogen/Creatinine [Mass ratio] 50.0 mg/mg 10-20 [facility] Laboratory - Hematology and Cell countsOrdered By: Dr. Wilkes on 12-20-2022 Erythrocyte distribution width (RBC) [Entitic vol] 57.7 fL 35.1-43.9 [facility] Erythrocyte distribution width (RBC) [Ratio] 16.5 % 11.6-14.6 [facility] Immature granulocytes/100 WBC (Bld) 0.700 % 0.0-0.9 [facility] Comment on above: IG% - Immature Granu locytes (promyelocytes, myelocytes and metamyelocytes) > 1% indicates that a LEFT SHIFT is Present. MCH (RBC) [Entitic mass] 28.8 pg 27.0-32.0 [facility] Nucleated RBC/100 WBC (Bld) [Ratio] 0 % 0-5 [facility] MCHC Auto (RBC) [Mass/Vol]Or dered By: Dr. Wilkes on 12-20-2022 MCHC (RBC) [Mass/Vol] 30.4 g/dL 32-36 [facility] No Panel InformationOrdered By: Dr. Wilkes on 12-20-2022 Estimated Creatinine Clearance Calc 61.68 ml/min [facility] Estimated GFR (MDRD) Amer 68 mL/min >60 [facility] Comment on above: GFR Calc Estimated GFR (MDRD) Non-Af Amer 56 mL/min >60 [facility] Comment on above: Non- GFR Calc 28.8 pg 27.0-32.0 [facility] 16.5 % 11.6-14.6 [facility] 57.7 fl 35.1-43.9 [facility] 0.700 % 0.0-0.9 [facility] 0 % 0-5 [facility] 56 mL/min >60 [facility] 68 mL/min >60 [facility] 61.68 ml/min [facility] 50.0 RATIO 10-20 [facility] 27.0 mmol/L 21.0-32.0 [facility] Platelets bldOrdered By: Dr. Wilkes on 12-20-2022 Platelets (Bld) [#/Vol] 225 10*3/uL 150-450 [facility] Serum or plasma calcium yunior urement (mass/volume)Ordered By: Dr. Wilkes on 12-20-2022 Calcium [Mass/Vol] 9.1 mg/dL 8.5-10.1 [facility] Serum or plasma creatinine m easurement (mass/volume)Ordered By: Dr. Wilkes on 12-20-2022 Creatinine [Mass/Vol] 1.12 mg/dL 0.55-1.02 [facility] Comment on above: The validity of the calculated GFR & GFRAA in patients over 70 years has not been determined. Clinical correlation is essential. Serum or plasma urea nitroge n measurement (mass/volume)Ordered By: Dr. Wilkes on 12-20-2022 Urea nitrogen [Mass/Vol] 56 mg/dL 06-17 [facility] Thin prep Papanicolaou smear with manual screeningOrdered By: Dr. Wilkes on 12-20-2022 Thin prep Papanicolaou smear with manual screening 6 -15 [facility] Absolute lymphocyte countOrd ered By: Dr. Quintero on 12-18-2022 Lymphocytes Auto (Unsp spec) [#/Vol] 1.63 10*3/uL 0.83-4.51 [facility] Assessment of wrist artery p atency prior to arterial punctureOrdered By: Dr. Quintero on 12-18-2022 Arterial patency Wrist artery --pre arterial puncture Positive [facility] Base excessOrdered By: Dr. Stas mccormack on 12-18-2022 Base excess Calc (BldV) [Moles/Vol] 0 mmol/L -2-2 [facility] Basophil percentageOrdered B y: Dr. Quintero on 12-18-2022 Basophil percentage 26.7 mmol/L 22-26 [facility] Basophils/100 WBC (Bld) 89 % 95-99 [facility] Basophil percentage 0 SEEN /hpf 0-5 [facility] Basophils/100 WBC (Bld) 0.3 % 0-1 [facility] Chloride [Moles/Vol] 98 mmol/L 98-107 [facility] Eosinophils/100 WBC (Bld) 0.3 % 0-5 [facility] Glucose [Mass/Vol] 171 mg/dL 74-106 [facility] Comment on above: Fasting Glucose resu lt greater than or equal to 126 mg/dL suggests DIABETES MELLITUS per A.D.A. criteria. Neutrophils (Bld) [#/Vol] 15.5 10*3/uL 2.0-7.7 [facility] Neutrophils/100 WBC (Bld) 84.5 % 47-70 [facility] Potassium [Moles/Vol] 5.6 mmol/L 3.5-5.1 [facility] Sodium [Moles/Vol] 130 mmol/L 136-145 [facility] WBC (Bld) [#/Vol] 18.3 10*3/uL 4.4-11.0 [facility] Bilirubin Test strip Ql (U)O rdered By: Dr. Quintero on 12-18-2022 Bilirubin Ql (U) Negative Negative [facility] Blood erythrocytes count (nu mber/volume)Ordered By: Dr. Quintero on 12-18-2022 RBC (Bld) [#/Vol] 4.04 10*6/uL 4.2-5.4 [facility] Blood hemoglobin measurement (mass/volume)Ordered By: Dr. Quintero on 12-18-2022 Hemoglobin (Bld) [Mass/Vol] 11.5 g/dL 12.0-15.0 [facility] Blood lymphocytes/100 leukoc ytesOrdered By: Dr. Quintero on 12-18-2022 Lymphocytes/100 WBC (Bld) 8.9 % 19-41 [facility] Blood monocytes/100 leukocyt esOrdered By: Dr. Quintero on 12-18-2022 Monocytes/100 WBC (Bld) 5.2 % 0-10 [facility] Blood platelet mean volumeOr dered By: Dr. Quintero on 12-18-2022 Platelet mean volume (Bld) [Entitic vol] 10.0 fL 6.2-12.0 [facility] CO2 (BldA) [Partial pressure ]Ordered By: Dr. Quintero on 12-18-2022 CO2 (Bld) [Partial pressure] 53.7 mm[Hg] 35-45 [facility] Determination of erythrocyte mean corpuscular volume (MCV)Ordered By: Dr. Quintero on 12-18-2022 MCV (RBC) [Entitic vol] 92.6 fL 81-99 [facility] Hematocrit Auto (Bld) [Volum e fraction]Ordered By: Dr. Quintero on 12-18-2022 Hematocrit (Bld) [Volume fraction] 37.4 % 37-47 [facility] Ketones Test strip Ql (U)Ord ered By: Dr. Quintero on 12-18-2022 Ketones Ql (U) Negative Negative [facility] Laboratory - Chemistry and C hemistry - challengeOrdered By: Dr. Quintero on 12-18-2022 CO2 [Moles/Vol] 27.0 mmol/L 21.0-32.0 [facility] Urea nitrogen/Creatinine [Mass ratio] 33.8 mg/mg 10-20 [facility] Laboratory - Hematology and Cell countsOrdered By: Dr. Quintero on 12-18-2022 Erythrocyte distribution width (RBC) [Entitic vol] 57.5 fL 35.1-43.9 [facility] Erythrocyte distribution width (RBC) [Ratio] 16.8 % 11.6-14.6 [facility] Immature granulocytes/100 WBC (Bld) 0.800 % 0.0-0.9 [facility] Comment on above: IG% - Immature Granu locytes (promyelocytes, myelocytes and metamyelocytes) > 1% indicates that a LEFT SHIFT is Present. MCH (RBC) [Entitic mass] 28.5 pg 27.0-32.0 [facility] Nucleated RBC/100 WBC (Bld) [Ratio] 0 % 0-5 [facility] MCHC Auto (RBC) [Mass/Vol]Or dered By: Dr. Quintero on 12-18-2022 MCHC (RBC) [Mass/Vol] 30.7 g/dL 32-36 [facility] Mucus LM Ql (Urine sed)Order ed By: Dr. Quintero on 12-18-2022 Mucus Ql (Urine sed) 0 SEEN /hpf [facility] Nitrite Test strip Ql (U)Ord ered By: Dr. Quintero on 12-18-2022 Nitrite Ql (U) Negative Negative [facility] No Panel InformationOrdered By: Dr. Quintero on 12-18-2022 Blood Gas Liter Flow 3.0 /min [facility] Blood Gas Sample Site R [facility] Blood Gas Specimen Type ART [facility] Blood Gas Total CO2 28 mmol/L [facility] Oxygen Delivery Device Cannula [facility] ART [facility] R [facility] Cannula [facility] 3.0 /min [facility] 28 mmol/L [facility] Estimated Creatinine Clearance Calc 29.15 ml/min [facility] Estimated GFR (MDRD) Amer 28 mL/min >60 [facility] Comment on above: GFR Calc Estimated GFR (MDRD) Non-Af Amer 24 mL/min >60 [facility] Comment on above: Non- GFR Calc Troponin I High Sensitivity 22 pg/mL 3.0-54.0 [facility] Comment on above: Please Note: New Laisha t Units and Gender Specific Reference Ranges. For more information see Policy Stat Procedure [place] High Sensitivity Troponin (TNIH) and attachments. 22 pg/mL 3.0-54.0 [facility] Oxygen (BldA) [Partial press ure]Ordered By: Dr. Quintero on 12-18-2022 Oxygen (Bld) [Partial pressure] 63 mmHG 75-100 [facility] Platelets bldOrdered By: Dr. Quintero on 12-18-2022 Platelets (Bld) [#/Vol] 251 10*3/uL 150-450 [facility] Protein Test strip Ql (U)Ord ered By: Dr. Quintero on 12-18-2022 Protein Ql (U) Negative Negative [facility] Serum or plasma calcium yunior urement (mass/volume)Ordered By: Dr. Quintero on 12-18-2022 Calcium [Mass/Vol] 8.6 mg/dL 8.5-10.1 [facility] Serum or plasma creatinine m easurement (mass/volume)Ordered By: Dr. Quintero on 12-18-2022 Creatinine [Mass/Vol] 2.37 mg/dL 0.55-1.02 [facility] Comment on above: The validity of the calculated GFR & GFRAA in patients over 70 years has not been determined. Clinical correlation is essential. Serum or plasma urea nitroge n measurement (mass/volume)Ordered By: Dr. Quintero on 12-18-2022 Urea nitrogen [Mass/Vol] 80 mg/dL 06-17 [facility] Squamous epithelial cells de tection in urine sediment by light microscopyOrdered By: Dr. Quintero on 12-18-2022 Epithelial cells.squamous LM Ql (Urine sed) 0 SEEN /hpf 5-10 [facility] Thin prep Papanicolaou smear with manual screeningOrdered By: Dr. Quintero on 12-18-2022 Thin prep Papanicolaou smear with manual screening 5 5-15 [facility] Urine blood detectionOrdered By: Dr. Quintero on 12-18-2022 RBC Ql (U) Negative Negative [facility] RBC Ql (U) 0 SEEN /hpf 0-5 [facility] Urine clarityOrdered By: Dr. Quintero on 12-18-2022 Clarity (U) Clear Clear [facility] Urine color determinationOrd ered By: Dr. Quintero on 12-18-2022 Color (U) Yellow Yellow [facility] Urine glucose detectionOrder ed By: Dr. Quintero on 12-18-2022 Glucose Ql (U) 250 mg/dl Normal [facility] Urine leukocyte esterase det ection by dipstickOrdered By: Dr. Quintero on 12-18-2022 Leukocyte esterase Test strip Ql (U) Negative Negative [facility] Urine pHOrdered By: Dr. Cecilia andujar on 12-18-2022 pH (U) 6.0 [pH] 5.0 - 8.0 [facility] Urine sediment bacteria coun t by microscopy (number/high power field)Ordered By: Dr. Quintero on 12-18-2022 Bacteria LM.HPF (Urine sed) [#/Area] 1 /[HPF] None Seen [facility] Urine sediment yeast count b y microscopy (number/high powered field)Ordered By: Dr. Quintero on 12-18-2022 Yeast LM.HPF (Urine sed) [#/Area] RARE /hpf None Seen [facility] Urine specific gravity measu rementOrdered By: Dr. Quintero on 12-18-2022 Specific gravity (U) [Rel density] 1.010 1.002-1.030 [facility] Urobilinogen Auto test strip Ql (U)Ordered By: Dr. Quintero on 12-18-2022 Urobilinogen Ql (U) Normal mg/dl Normal [facility] pH measurementOrdered By: Dr Susan Quintero on 12-18-2022 pH (Unsp spec) 7.30 [pH] 7.35-7.45 [facility] Absolute lymphocyte countOrd ered By: Dr. Kaiser on 12-09-2022 Lymphocytes Auto (Unsp spec) [#/Vol] 2.05 10*3/uL 0.83-4.51 [facility] Basophil percentageOrdered B y: Dr. Kaiser on 12-09-2022 Basophil percentage 3.2 mmol/L 0.4-2.0 [facility] Lactate [Moles/Vol] 3.2 mmol/L 0.4-2.0 [facility] Comment on above: Critical Result(s) C alled at: 13:21:10 12/09/2022 by: Cathy Ladd. Results read back by same. Basophil percentage 232 mg/dL 74-106 [facility] Basophil percentage 137 mmol/L 136-145 [facility] Basophil percentage 4.3 mmol/L 3.5-5.1 [facility] Basophil percentage 101 mmol/L 98-107 [facility] Basophils (Bld) [#/Vol] 13.3 10*3/uL 4.4-11.0 [facility] Basophils (Bld) [#/Vol] 10.4 10*3/uL 2.0-7.7 [facility] Basophils/100 WBC (Bld) 0.8 % 0-1 [facility] Basophils/100 WBC (Bld) 78.2 % 47-70 [facility] Basophils/100 WBC (Bld) 1.4 % 0-5 [facility] Chloride [Moles/Vol] 101 mmol/L 98-107 [facility] Eosinophils/100 WBC (Bld) 1.4 % 0-5 [facility] Glucose [Mass/Vol] 232 mg/dL 74-106 [facility] Comment on above: Glucose result great er than or equal to 200 mg/dLsuggests DIABETES MELLITUS per A.D.A. criteria. Neutrophils (Bld) [#/Vol] 10.4 10*3/uL 2.0-7.7 [facility] Neutrophils/100 WBC (Bld) 78.2 % 47-70 [facility] Potassium [Moles/Vol] 4.3 mmol/L 3.5-5.1 [facility] Sodium [Moles/Vol] 137 mmol/L 136-145 [facility] WBC (Bld) [#/Vol] 13.3 10*3/uL 4.4-11.0 [facility] Blood erythrocytes count (nu mber/volume)Ordered By: Dr. Kaiser on 12-09-2022 RBC (Bld) [#/Vol] 4.25 10*6/uL 4.2-5.4 [facility] Blood hemoglobin measurement (mass/volume)Ordered By: Dr. Kaiser on 12-09-2022 Hemoglobin (Bld) [Mass/Vol] 12.0 g/dL 12.0-15.0 [facility] Blood lymphocytes/100 leukoc ytesOrdered By: Dr. Kaiser on 12-09-2022 Lymphocytes/100 WBC (Bld) 15.5 % 19-41 [facility] Blood monocytes/100 leukocyt esOrdered By: Dr. Kaiser on 12-09-2022 Monocytes/100 WBC (Bld) 2.8 % 0-10 [facility] Blood platelet mean volumeOr dered By: Dr. Kaiser on 12-09-2022 Platelet mean volume (Bld) [Entitic vol] 9.8 fL 6.2-12.0 [facility] Determination of erythrocyte mean corpuscular volume (MCV)Ordered By: Dr. Kaiser on 12-09-2022 MCV (RBC) [Entitic vol] 96.9 fL 81-99 [facility] Hematocrit Auto (Bld) [Volum e fraction]Ordered By: Dr. Kaiser on 12-09-2022 Hematocrit (Bld) [Volume fraction] 41.2 % 37-47 [facility] [facility] Laboratory - Chemistry and C hemistry - challengeOrdered By: Dr. Kaiser on 12-09-2022 CO2 [Moles/Vol] 30.0 mmol/L 21.0-32.0 [facility] Urea nitrogen/Creatinine [Mass ratio] 16.5 mg/mg 10-20 [facility] Laboratory - Hematology and Cell countsOrdered By: Dr. Kaiser on 12-09-2022 Erythrocyte distribution width (RBC) [Entitic vol] 62.4 fL 35.1-43.9 [facility] Erythrocyte distribution width (RBC) [Ratio] 17.6 % 11.6-14.6 [facility] Immature granulocytes/100 WBC (Bld) 1.300 % 0.0-0.9 [facility] Comment on above: IG% - Immature Granu locytes (promyelocytes, myelocytes and metamyelocytes) > 1% indicates that a LEFT SHIFT is Present. MCH (RBC) [Entitic mass] 28.2 pg 27.0-32.0 [facility] Nucleated RBC/100 WBC (Bld) [Ratio] 0.5 % 0-5 [facility] MCHC Auto (RBC) [Mass/Vol]Or dered By: Dr. Kaiser on 12-09-2022 MCHC (RBC) [Mass/Vol] 29.1 g/dL 32-36 [facility] No Panel InformationOrdered By: Dr. Kaiser on 12-09-2022 Estimated Creatinine Clearance Calc 71.22 ml/min [facility] Estimated GFR (MDRD) Amer 80 mL/min >60 [facility] Comment on above: GFR Calc Estimated GFR (MDRD) Non-Af Amer 66 mL/min >60 [facility] Comment on above: Non- GFR Calc 28.2 pg 27.0-32.0 [facility] 17.6 % 11.6-14.6 [facility] 62.4 fl 35.1-43.9 [facility] 1.300 % 0.0-0.9 [facility] 0.5 % 0-5 [facility] 66 mL/min >60 [facility] 80 mL/min >60 [facility] 71.22 ml/min [facility] 16.5 RATIO 10-20 [facility] 30.0 mmol/L 21.0-32.0 [facility] Platelets bldOrdered By: Dr. Kaiser on 12-09-2022 Platelets (Bld) [#/Vol] 297 10*3/uL 150-450 [facility] Serum or plasma calcium yunior urement (mass/volume)Ordered By: Dr. Kaiser on 12-09-2022 Calcium [Mass/Vol] 9.0 mg/dL 8.5-10.1 [facility] Serum or plasma creatinine m easurement (mass/volume)Ordered By: Dr. Kaiser on 12-09-2022 Creatinine [Mass/Vol] 0.97 mg/dL 0.55-1.02 [facility] Comment on above: The validity of the calculated GFR & GFRAA in patients over 70 years has not been determined. Clinical correlation is essential. Serum or plasma urea nitroge n measurement (mass/volume)Ordered By: Dr. Kaiser on 12-09-2022 Urea nitrogen [Mass/Vol] 16 mg/dL 7-18 [facility] Thin prep Papanicolaou smear with manual screeningOrdered By: Dr. Kaiser on 12-09-2022 Thin prep Papanicolaou smear with manual screening 6 5-15 [facility] Comprehensive metabolic 2000 panelon 11-11-2022 Albumin [Mass/Vol] 3.7 g/dL Low 3.9 - 4.9 g/dL [facility] ALP [Catalytic activity/Vol] 69 U/L 34 - 123 U/L [facility] ALT [Catalytic activity/Vol] 24 U/L 7 - 38 U/L [facility] Anion gap [Moles/Vol] 12 mmol/L 9 - 18 mmol/L [facility] AST [Catalytic activity/Vol] 19 U/L 13 - 35 U/L [facility] Bilirubin [Mass/Vol] 0.2 mg/dL 0.2 - 1.3 mg/dL [facility] Calcium [Mass/Vol] 9.4 mg/dL 8.5 - 10. 2 mg/dL [facility] Chloride [Moles/Vol] 90 mmol/L Low 97 - 105 mmol/L [facility] CO2 [Moles/Vol] 30 mmol/L 22 - 30 mmol/L [facility] Creatinine [Mass/Vol] 1.27 mg/dL High 0.58 - 0.96 mg/dL [facility] Estimated Glomerular Filtration Rate 53 mL/min/1.73m Low >=60 mL/min/1.73m [facility] Glucose [Mass/Vol] 221 mg/dL High 74 - 99 mg/dL [facility] Potassium [Moles/Vol] 4.9 mmol/L 3.7 - 5.1 mmol/L [facility] Protein [Mass/Vol] 6.9 g/dL 6.3 - 8.0 g/dL [facility] Sodium [Moles/Vol] 132 mmol/L Low 136 - 144 mmol/L [facility] Urea nitrogen [Mass/Vol] 44 mg/dL High 7 - 21 mg/d L [facility] metabolic 2000 panelon 11-09-2022 Albumin [Mass/Vol] 3.8 g/dL Low 3.9 - 4.9 g/dL [facility] ALP [Catalytic activity/Vol] 65 U/L 34 - 123 U/L [facility] ALT [Catalytic activity/Vol] 36 U/L 7 - 38 U/L [facility] Anion gap [Moles/Vol] 17 mmol/L 9 - 18 mmol/L [facility] AST [Catalytic activity/Vol] 44 U/L High 13 - 35 U/L [facility] Bilirubin [Mass/Vol] 0.3 mg/dL 0.2 - 1.3 mg/dL [facility] Calcium [Mass/Vol] 9.6 mg/dL 8.5 - 10. 2 mg/dL [facility] Chloride [Moles/Vol] 82 mmol/L Low 97 - 105 mmol/L [facility] CO2 [Moles/Vol] 29 mmol/L 22 - 30 mmol/L [facility] Creatinine [Mass/Vol] 2.32 mg/dL High 0.58 - 0.96 mg/dL [facility] Estimated Glomerular Filtration Rate 26 mL/min/1.73m Low >=60 mL/min/1.73m [facility] Glucose [Mass/Vol] 107 mg/dL High 74 - 99 mg/dL [facility] Potassium [Moles/Vol] 5.6 mmol/L High 3.7 - 5.1 mmol/L [facility] Protein [Mass/Vol] 6.7 g/dL 6.3 - 8.0 g/dL [facility] Sodium [Moles/Vol] 128 mmol/L Low 136 - 144 mmol/L [facility] Urea nitrogen [Mass/Vol] 71 mg/dL High 7 - 21 mg/d L [facility] HbA1c (Bld)on 11-09-2022 Average glucose Estimated from glycated hemoglobin (Bld) [Mass/Vol] 235 mg/dL [facility] HbA1c (Bld) [Mass fraction] 9.8 % High 4.3 - 5.6 % [facility] Absolute lymphocyte countOrd ered By: Dr. Pitts on 11-01-2022 Lymphocytes Auto (Unsp spec) [#/Vol] 2.04 10*3/uL 0.83-4.51 [facility] Basophil percentageOrdered B y: Dr. Pitts on 11-01-2022 Basophils/100 WBC (Bld) 0.3 % 0-1 [facility] Bilirubin [Mass/Vol] 0.40 mg/dL 0.20-1.00 [facility] Comment on above: For patients on eltr ombopag therapy, use of Dimension [place] TBIL is not recommended. Chloride [Moles/Vol] 92 mmol/L 98-107 [facility] Eosinophils/100 WBC (Bld) 0.0 % 0-5 [facility] Glucose [Mass/Vol] 164 mg/dL 74-106 [facility] Comment on above: Fasting Glucose resu lt greater than or equal to 126 mg/dL suggests DIABETES MELLITUS per A.D.A. criteria. Neutrophils (Bld) [#/Vol] 19.5 10*3/uL 2.0-7.7 [facility] Neutrophils/100 WBC (Bld) 84.4 % 47-70 [facility] Potassium [Moles/Vol] 3.8 mmol/L 3.5-5.1 [facility] Protein [Mass/Vol] 7.7 g/dL 6.4-8.2 [facility] Sodium [Moles/Vol] 133 mmol/L 136-145 [facility] WBC (Bld) [#/Vol] 23.2 10*3/uL 4.4-11.0 [facility] Blood erythrocytes count (nu mber/volume)Ordered By: Dr. Pitts on 11-01-2022 RBC (Bld) [#/Vol] 4.55 10*6/uL 4.2-5.4 [facility] Blood hemoglobin measurement (mass/volume)Ordered By: Dr. Pitts on 11-01-2022 Hemoglobin (Bld) [Mass/Vol] 12.8 g/dL 12.0-15.0 [facility] Blood lymphocytes/100 leukoc ytesOrdered By: Dr. Pitts on 11-01-2022 Lymphocytes/100 WBC (Bld) 8.8 % 19-41 [facility] Blood monocytes/100 leukocyt esOrdered By: Dr. Pitts on 11-01-2022 Monocytes/100 WBC (Bld) 5.7 % 0-10 [facility] Blood platelet mean volumeOr dered By: Dr. Pitts on 11-01-2022 Platelet mean volume (Bld) [Entitic vol] 9.5 fL 6.2-12.0 [facility] Determination of erythrocyte mean corpuscular volume (MCV)Ordered By: Dr. Pitts on 11-01-2022 MCV (RBC) [Entitic vol] 91.4 fL 81-99 [facility] Hematocrit Auto (Bld) [Volum e fraction]Ordered By: Dr. Pitts on 11-01-2022 Hematocrit (Bld) [Volume fraction] 41.6 % 37-47 [facility] Influenza virus A and B and SARS-CoV-2 (COVID-19) Ag panel - Upper respiratory specimOrdered By: Dr. Pitts on 11-01-2022 SARS-CoV-2 (COVID-19) RNA SURESH+probe Ql (Resp) [facility] Laboratory - Chemistry and C hemistry - challengeOrdered By: Dr. Pitts on 11-01-2022 ALP [Catalytic activity/Vol] 53 U/L 45-117 [facility] ALT [Catalytic activity/Vol] 28 U/L 13-56 [facility] CO2 [Moles/Vol] 36.0 mmol/L 21.0-32.0 [facility] Globulin (S) [Mass/Vol] 4.4 g/dL 2.2-4.2 [facility] Urea nitrogen/Creatinine [Mass ratio] 24.3 mg/mg 10-20 [facility] Laboratory - Hematology and Cell countsOrdered By: Dr. Pitts on 11-01-2022 Erythrocyte distribution width (RBC) [Entitic vol] 59.3 fL 35.1-43.9 [facility] Erythrocyte distribution width (RBC) [Ratio] 17.5 % 11.6-14.6 [facility] Immature granulocytes/100 WBC (Bld) 0.800 % 0.0-0.9 [facility] Comment on above: IG% - Immature Granu locytes (promyelocytes, myelocytes and metamyelocytes) > 1% indicates that a LEFT SHIFT is Present. MCH (RBC) [Entitic mass] 28.1 pg 27.0-32.0 [facility] Nucleated RBC/100 WBC (Bld) [Ratio] 0 % 0-5 [facility] MCHC Auto (RBC) [Mass/Vol]Or dered By: Dr. Pitts on 11-01-2022 MCHC (RBC) [Mass/Vol] 30.8 g/dL 32-36 [facility] No Panel InformationOrdered By: Dr. Pitts on 11-01-2022 Estimated Creatinine Clearance Calc 43.19 ml/min [facility] Estimated GFR (MDRD) Amer 49 mL/min >60 [facility] Comment on above: GFR Calc Estimated GFR (MDRD) Non-Af Amer 41 mL/min >60 [facility] Comment on above: Non- GFR Calc Troponin I High Sensitivity 31 pg/mL 3.0-54.0 [facility] Comment on above: Please Note: New Laisha t Units and Gender Specific Reference Ranges. For more information see Policy Stat Procedure [place] High Sensitivity Troponin (TNIH) and attachments. Platelets bldOrdered By: Dr. Pitts on 11-01-2022 Platelets (Bld) [#/Vol] 230 10*3/uL 150-450 [facility] RSV Ag EIAOrdered By: Dr. Huerta nnparminder on 11-01-2022 RSV Ag Immune stain Ql (Tiss) [facility] S. pyogenes Ag IF Ql (Throat )Ordered By: Dr. Pitts on 11-01-2022 S. pyogenes Ag IA Ql (Unsp spec) Streptococcus Group A [facility] Serum or plasma albumin yunior urement (mass/volume)Ordered By: Dr. Pitts on 11-01-2022 Albumin [Mass/Vol] 3.3 g/dL 3.2-5.0 [facility] Serum or plasma albumin/glob ulin mass ratioOrdered By: Dr. Pitts on 11-01-2022 Albumin/Globulin [Mass ratio] 0.8 {ratio} 0.9-2.4 [facility] Serum or plasma calcium yunior urement (mass/volume)Ordered By: Dr. Pitts on 11-01-2022 Calcium [Mass/Vol] 9.3 mg/dL 8.5-10.1 [facility] Serum or plasma creatinine m easurement (mass/volume)Ordered By: Dr. Pitts on 11-01-2022 Creatinine [Mass/Vol] 1.48 mg/dL 0.55-1.02 [facility] Comment on above: The validity of the calculated GFR & GFRAA in patients over 70 years has not been determined. Clinical correlation is essential. Serum or plasma urea nitroge n measurement (mass/volume)Ordered By: Dr. Pitts on 11-01-2022 Urea nitrogen [Mass/Vol] 36 mg/dL 7-18 [facility] Thin prep Papanicolaou smear with manual screeningOrdered By: Dr. Pitts on 11-01-2022 Thin prep Papanicolaou smear with manual screening 20 U/L 15-37 [facility] Thin prep Papanicolaou smear with manual screening 5 5-15 [facility] MAGNESIUM BLDon 10-19-2022 Magnesium [Mass/Vol] 2.0 mg/dL 1.7 - 2.3 mg/dL [facility] PHOSPHORUS INORGANICon 10-19 Phosphate [Mass/Vol] 3.4 mg/dL 2.7 - 4.8 mg/dL [facility] TSH BLDon 10-19-2022 TSH Qn 4.130 m[IU]/L 0.270 - 4.200 mIU/L [facility] CBC W Auto Differential pane l (Bld)on 10-18-2022 Basophils (Bld) [#/Vol] 0.05 10*3/uL <0.11 k/uL [facility] Basophils/100 WBC (Bld) 0.6 % C [facility] Differential cell count method Nom (Bld) Auto [facility] Eosinophils (Bld) [#/Vol] 0.25 10*3/uL <0.46 k/uL [facility] Eosinophils/100 WBC (Bld) 2.8 % [facility] Erythrocyte distribution width (RBC) [Ratio] 17.0 % High 11.5 - 15.0 % [facility] Hematocrit (Bld) [Volume fraction] 43.7 % 36.0 - 46.0 % [facility] Hemoglobin (Bld) [Mass/Vol] 12.9 g/dL 11.5 - 15.5 g/dL [facility] Immature granulocytes (Bld) [#/Vol] 0.08 10*3/uL <0.10 k/uL [facility] Immature granulocytes/100 WBC (Bld) 0.9 % [facility] Lymphocytes (Bld) [#/Vol] 1.57 10*3/uL 1.00 - 4.00 k/uL [facility] Lymphocytes/100 WBC (Bld) 17.8 % [facility] MCH (RBC) [Entitic mass] 27.7 pg 26.0 - 34.0 pg [facility] MCHC (RBC) [Mass/Vol] 29.5 g/dL Low 30.5 - 36.0 g/dL [facility] MCV (RBC) [Entitic vol] 93.8 fL 80.0 - 100.0 fL [facility] Monocytes (Bld) [#/Vol] 0.38 10*3/uL <0.87 k/uL [facility] Monocytes/100 WBC (Bld) 4.3 % [facility] Neutrophils (Bld) [#/Vol] 6.50 10*3/uL 1.45 - 7.50 k/uL [facility] Neutrophils/100 WBC (Bld) 73.6 % [facility] Nucleated RBC (Bld) [#/Vol] <0.01 k/uL [facility] Nucleated RBC/100 WBC (Bld) [Ratio] 0.0 /100 WBC [facility] Platelet mean volume (Bld) [Entitic vol] 9.8 fL 9.0 - 12.7 fL [facility] Platelets (Bld) [#/Vol] 188 10*3/uL 150 - 400 k /uL [facility] RBC (Bld) [#/Vol] 4.66 10*6/uL 3.90 - 5.2 0 m/uL [facility] WBC (Bld) [#/Vol] 8.83 10*3/uL 3.70 - 11. 00 k/uL [facility] Comprehensive metabolic 2000 panelon 10-18-2022 Albumin [Mass/Vol] 4.2 g/dL 3.9 - 4.9 g/dL [facility] ALP [Catalytic activity/Vol] 68 U/L 34 - 123 U/L [facility] ALT [Catalytic activity/Vol] 24 U/L 7 - 38 U/L [facility] Anion gap [Moles/Vol] 10 mmol/L 9 - 18 mmol/L [facility] AST [Catalytic activity/Vol] 33 U/L 13 - 35 U/L [facility] Bilirubin [Mass/Vol] 0.2 mg/dL 0.2 - 1.3 mg/dL [facility] Calcium [Mass/Vol] 10.2 mg/dL 8.5 - 10. 2 mg/dL [facility] Chloride [Moles/Vol] 91 mmol/L Low 97 - 105 mmol/L [facility] CO2 [Moles/Vol] 39 mmol/L High 22 - 30 mmol/L [facility] Creatinine [Mass/Vol] 0.95 mg/dL 0.58 - 0.96 mg/dL [facility] Estimated Glomerular Filtration Rate 75 mL/min/1.73m >=60 mL/min/1.73m [facility] Glucose [Mass/Vol] 180 mg/dL High 74 - 99 mg/dL [facility] Potassium [Moles/Vol] 4.3 mmol/L 3.7 - 5.1 mmol/L [facility] Protein [Mass/Vol] 7.4 g/dL 6.3 - 8.0 g/dL [facility] Sodium [Moles/Vol] 140 mmol/L 136 - 144 mmol/L [facility] Urea nitrogen [Mass/Vol] 22 mg/dL High 7 - 21 mg/d L [facility] Laboratory - Chemistry and C hemistry - challengeOrdered By: Dr. Oreilly on 10-18-2022 Natriuretic peptide B (Bld) [Mass/Vol] 11.2 pg/mL 0-100 [facility] XR CHEST 2V FRONTAL/LATon [facility] XR Chest PA and Lateralon IMPRESSION: No acute radiographic abnormality. 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 Transcribe Date/Time: Oct 18 2022 3:59P Dictated by : SHAWN FLORES MD This examination was interpreted and the report reviewed and electronically signed by: SHAWN FLORES MD on Oct 18 2022 3:59PM [facility] DIVISION OF RADIOLOGY * * *Final Report* [...] soft tissues: Unremarkable. DIVISION OF RADIOLOGY Provider, [facility] - 10/18/2022 * * *Final Report* * [...] Unremarkable. IMPRESSION IMPRESSION: No acute radiographic abnormality. 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 Transcribe Date/Time: Oct 18 2022 3:59P Dictated by : SHAWN FLORES MD This examination was interpreted and the report reviewed and electronically signed by: SHAWN FLORES MD on Oct 18 2022 3:59PM EST [facility] Radiology Study observation (narrative) [place] XR Chest PA and LateralOrder ed By: [facility] Provider on 10-18-2022 [facility] Laboratory - Microbiology an d Antimicrobial susceptibilityOrdered By: Dr. Pitts on 09-28-2022 Bacteria identified Cx Nom (Bld) No growth in 5 days. [facility] Microbial respiratory cultur eOrdered By: Dr. Chu on 09-26-2022 Bacteria identified Respiratory culture Nom (Unsp spec) [facility] Culture, urineOrdered By: Dr Susan Pitts on 09-25-2022 Bacteria identified Cx Nom (U) Escherichia coli [facility] Absolute lymphocyte countOrd ered By: Dr. Eubanks on 09-24-2022 Lymphocytes Auto (Unsp spec) [#/Vol] 1.76 10*3/uL 0.83-4.51 [facility] Basophil percentageOrdered B y: Dr. Eubanks on 09-24-2022 Basophils/100 WBC (Bld) 0.4 % 0-1 [facility] Bilirubin [Mass/Vol] 0.30 mg/dL 0.20-1.00 [facility] Comment on above: For patients on eltr ombopag therapy, use of Dimension [place] TBIL is not recommended. Chloride [Moles/Vol] 93 mmol/L 98-107 [facility] Eosinophils/100 WBC (Bld) 0.1 % 0-5 [facility] Glucose [Mass/Vol] 254 mg/dL 74-106 [facility] Comment on above: Glucose result great er than or equal to 200 mg/dLsuggests DIABETES MELLITUS per A.D.A. criteria. Neutrophils (Bld) [#/Vol] 12.3 10*3/uL 2.0-7.7 [facility] Neutrophils/100 WBC (Bld) 81.7 % 47-70 [facility] Potassium [Moles/Vol] 3.5 mmol/L 3.5-5.1 [facility] Protein [Mass/Vol] 7.9 g/dL 6.4-8.2 [facility] Sodium [Moles/Vol] 135 mmol/L 136-145 [facility] WBC (Bld) [#/Vol] 15.0 10*3/uL 4.4-11.0 [facility] Blood erythrocytes count (nu mber/volume)Ordered By: Dr. Eubanks on 09-24-2022 RBC (Bld) [#/Vol] 4.54 10*6/uL 4.2-5.4 [facility] Blood hemoglobin measurement (mass/volume)Ordered By: Dr. Eubanks on 09-24-2022 Hemoglobin (Bld) [Mass/Vol] 12.6 g/dL 12.0-15.0 [facility] Blood lymphocytes/100 leukoc ytesOrdered By: Dr. Eubanks on 09-24-2022 Lymphocytes/100 WBC (Bld) 11.7 % 19-41 [facility] Blood monocytes/100 leukocyt esOrdered By: Dr. Eubanks on 09-24-2022 Monocytes/100 WBC (Bld) 5.0 % 0-10 [facility] Blood platelet mean volumeOr dered By: Dr. Eubanks on 09-24-2022 Platelet mean volume (Bld) [Entitic vol] 9.9 fL 6.2-12.0 [facility] Determination of erythrocyte mean corpuscular volume (MCV)Ordered By: Dr. Eubanks on 09-24-2022 MCV (RBC) [Entitic vol] 91.4 fL 81-99 [facility] Glucose Glucometer (dC) [M ass/Vol]Ordered By: Dr. Eubanks on 09-24-2022 Glucose [Mass/Vol] 216 mg/dL 74-106 [facility] Comment on above: MANAGEMENT OF PATIEN T CARE PER NURSING PROTOCOL Gram stain for investigation of transfusion reactionOrdered By: Dr. Chu on 09-24-2022 Microscopic observation Gram stain Nom (Unsp spec) [facility] Hematocrit Auto (Bld) [Volum e fraction]Ordered By: Dr. Eubanks on 09-24-2022 Hematocrit (Bld) [Volume fraction] 41.5 % 37-47 [facility] Laboratory - Chemistry and C hemistry - challengeOrdered By: Dr. Eubanks on 09-24-2022 ALP [Catalytic activity/Vol] 60 U/L 45-117 [facility] ALT [Catalytic activity/Vol] 24 U/L 13-56 [facility] CO2 [Moles/Vol] 37.0 mmol/L 21.0-32.0 [facility] Globulin (S) [Mass/Vol] 4.5 g/dL 2.2-4.2 [facility] Urea nitrogen/Creatinine [Mass ratio] 31.4 mg/mg 10-20 [facility] Laboratory - Hematology and Cell countsOrdered By: Dr. Eubanks on 09-24-2022 Erythrocyte distribution width (RBC) [Entitic vol] 50.2 fL 35.1-43.9 [facility] Erythrocyte distribution width (RBC) [Ratio] 15.5 % 11.6-14.6 [facility] Immature granulocytes/100 WBC (Bld) 1.100 % 0.0-0.9 [facility] Comment on above: IG% - Immature Granu locytes (promyelocytes, myelocytes and metamyelocytes) > 1% indicates that a LEFT SHIFT is Present. MCH (RBC) [Entitic mass] 27.8 pg 27.0-32.0 [facility] Nucleated RBC/100 WBC (Bld) [Ratio] 0.1 % 0-5 [facility] MCHC Auto (RBC) [Mass/Vol]Or dered By: Dr. Eubanks on 09-24-2022 MCHC (RBC) [Mass/Vol] 30.4 g/dL 32-36 [facility] No Panel InformationOrdered By: Dr. Eubanks on 09-24-2022 Estimated Creatinine Clearance Calc 60.88 ml/min [facility] Estimated GFR (MDRD) Amer 73 mL/min >60 [facility] Comment on above: GFR Calc Estimated GFR (MDRD) Non-Af Amer 60 mL/min >60 [facility] Comment on above: Non- GFR Calc Platelets bldOrdered By: Dr. Eubanks on 09-24-2022 Platelets (Bld) [#/Vol] 273 10*3/uL 150-450 [facility] Serum or plasma albumin yunior urement (mass/volume)Ordered By: Dr. Eubanks on 09-24-2022 Albumin [Mass/Vol] 3.4 g/dL 3.2-5.0 [facility] Serum or plasma albumin/glob ulin mass ratioOrdered By: Dr. Eubanks on 09-24-2022 Albumin/Globulin [Mass ratio] 0.8 {ratio} 0.9-2.4 [facility] Serum or plasma calcium yunior urement (mass/volume)Ordered By: Dr. Eubanks on 09-24-2022 Calcium [Mass/Vol] 9.5 mg/dL 8.5-10.1 [facility] Serum or plasma creatinine m easurement (mass/volume)Ordered By: Dr. Eubanks on 09-24-2022 Creatinine [Mass/Vol] 1.05 mg/dL 0.55-1.02 [facility] Comment on above: The validity of the calculated GFR & GFRAA in patients over 70 years has not been determined. Clinical correlation is essential. Serum or plasma urea nitroge n measurement (mass/volume)Ordered By: Dr. Eubanks on 09-24-2022 Urea nitrogen [Mass/Vol] 33 mg/dL 7-18 [facility] Thin prep Papanicolaou smear with manual screeningOrdered By: Dr. Eubanks on 09-24-2022 Thin prep Papanicolaou smear with manual screening 14 U/L 15-37 [facility] Thin prep Papanicolaou smear with manual screening 5 5-15 [facility] Basophil percentageOrdered B y: Dr. Chu on 09-23-2022 Cholesterol [Mass/Vol] 113 mg/dL <200 [facility] Comment on above: <200 mg/dL Desirable 200-240 mg/dL Borderline >240 mg/dL High Risk Triglyceride [Mass/Vol] 123 mg/dL <199 [facility] Comment on above: The drugs N-Acetylcy steine and Metamizole may falsely depress this assay.Serum Triglycerides Reference Interval Normal <150 mg/dL Borderline high 150 - 199 mg/dL High 200 - 499 mg/dL Very High > or = 500 mg/dL No Panel InformationOrdered By: Dr. Chu on 09-23-2022 Methicillin-Resist S.aureus DNA PCR Positive Negative [facility] Serum or plasma cholesterol in HDL measurement (mass/volume)Ordered By: Dr. Chu on 09-23-2022 Cholesterol in HDL [Mass/Vol] 33 mg/dL >40 [facility] Comment on above: The drugs N-Acetylcy steine and Metamizole may falsely depress this assay. Reference Range HDL <40 mg/dL Low HDL Cholesterol HDL >or= 60 mg/dL High HDL Cholesterol Serum or plasma cholesterol in VLDL measurement (mass/volume)Ordered By: Dr. Chu on 09-23-2022 Cholesterol in VLDL [Mass/Vol] 25 mg/dL 5-40 [facility] Serum or plasma low density lipoprotein (LDL) cholesterol measurement (mass/volume)Ordered By: Dr. Chu on 09-23-2022 Cholesterol in LDL [Mass/Vol] 55 mg/dL 0-130 [facility] Whole blood hemoglobin A1c/t otal hemoglobin ratio (mass fraction)Ordered By: Dr. Eubanks on 09-23-2022 HbA1c (Bld) [Mass fraction] 8.9 % 3.8-5.6 [facility] Comment on above: Normal < 5.7 % Predi abetic 5.7 - 6.4 % Diabetic >or= 6.5 % Please note range changes. Absolute lymphocyte counton 09-22-2022 Lymphocytes Auto (Unsp spec) [#/Vol] 2.39 10*3/uL 0.83-4.51 [facility] Work Phone: Assessment of wrist artery p atency prior to arterial punctureOrdered By: Dr. Chu on 09-22-2022 Arterial patency Wrist artery --pre arterial puncture Positive [facility] Base excessOrdered By: Dr. Juan José enciso on 09-22-2022 Base excess Calc (BldV) [Moles/Vol] 8 mmol/L -2-2 [facility] Basophil percentageOrdered B y: Dr. Pitts on 09-22-2022 Lactate [Moles/Vol] 2.5 mmol/L 0.4-2.0 [facility] Comment on above: Critical Result(s) C alled at: 22:04:36 09/22/2022 to [facility]rdad [facility] by: sydnee feliciano. Results read back by same. Basophil percentage 10-25 SEEN /hpf 0-5 [facility] Basophil percentageOrdered B y: Dr. Chu on 09-22-2022 Basophil percentage 34.2 mmol/L 22-26 [facility] Basophils/100 WBC (Bld) 75 % 95-99 [facility] Basophil percentage 3.0 mg/dL 2.5-4.9 [facility] Basophil percentageon 2021 Lactate [Moles/Vol] 3.0 mmol/L 0.4-2.0 [facility] Work Phone: Basophils/100 WBC (Bld) 0.6 % 0-1 [facility] Work Phone: Chloride [Moles/Vol] 92 mmol/L 98-107 [facility] Work Phone: Eosinophils/100 WBC (Bld) 1.7 % 0-5 [facility] Work Phone: Glucose [Mass/Vol] 307 mg/dL 74-106 [facility] Work Phone: Comment on above: Glucose result great er than or equal to 200 mg/dLsuggests DIABETES MELLITUS per A.D.A. criteria. Neutrophils (Bld) [#/Vol] 11.3 10*3/uL 2.0-7.7 [facility] Work Phone: Neutrophils/100 WBC (Bld) 75.3 % 47-70 [facility] Work Phone: Potassium [Moles/Vol] 4.1 mmol/L 3.5-5.1 [facility] Work Phone: Sodium [Moles/Vol] 135 mmol/L 136-145 [facility] Work Phone: WBC (Bld) [#/Vol] 15.0 10*3/uL 4.4-11.0 [facility] Work Phone: Bilirubin Test strip Ql (U)O rdered By: Dr. Pitts on 09-22-2022 Bilirubin Ql (U) Negative Negative [facility] Blood erythrocytes count (nu mber/volume)on 09-22-2022 RBC (Bld) [#/Vol] 4.47 10*6/uL 4.2-5.4 [facility] Work Phone: Blood hemoglobin measurement (mass/volume)on 09-22-2022 Hemoglobin (Bld) [Mass/Vol] 12.4 g/dL 12.0-15.0 [facility] Work Phone: Blood lymphocytes/100 leukoc yteson 09-22-2022 Lymphocytes/100 WBC (Bld) 16.0 % 19-41 [facility] Work Phone: Blood monocytes/100 leukocyt eson 09-22-2022 Monocytes/100 WBC (Bld) 5.1 % 0-10 [facility] Work Phone: Blood platelet mean volumeon 09-22-2022 Platelet mean volume (Bld) [Entitic vol] 9.9 fL 6.2-12.0 [facility] Work Phone: CO2 (BldA) [Partial pressure ]Ordered By: Dr. Chu on 09-22-2022 CO2 (Bld) [Partial pressure] 65.9 mm[Hg] 35-45 [facility] Determination of erythrocyte mean corpuscular volume (MCV)on 09-22-2022 MCV (RBC) [Entitic vol] 94.4 fL 81-99 [facility] Work Phone: Direct bilirubinOrdered By: Dr. Chu on 09-22-2022 Bilirubin.direct [Mass/Vol] 0.15 mg/dL 0.00-0.30 [facility] Hematocrit Auto (Bld) [Volum e fraction]on 09-22-2022 Hematocrit (Bld) [Volume fraction] 42.2 % 37-47 [facility] Work Phone: INR in Blood by Coagulation assayOrdered By: Dr. Pitts on 09-22-2022 INR Coag (Bld) [Relative time] 1.2 {INR} [facility] Ketones Test strip Ql (U)Ord ered By: Dr. Pitts on 09-22-2022 Ketones Ql (U) Negative Negative [facility] Laboratory - Chemistry and C hemistry - challengeOrdered By: Dr. Chu on 09-22-2022 Magnesium [Mass/Vol] 1.8 mg/dL 1.6-2.6 [facility] Laboratory - Chemistry and C hemistry - challengeon 09-22-2022 CO2 [Moles/Vol] 34.0 mmol/L 21.0-32.0 [facility] Work Phone: Urea nitrogen/Creatinine [Mass ratio] 22.5 mg/mg 10-20 [facility] Work Phone: Laboratory - Chemistry and C hemistry - challengeOrdered By: Dr. Pitts on 09-22-2022 Natriuretic peptide B (Bld) [Mass/Vol] 5.2 pg/mL 0-100 [facility] Laboratory - CoagulationOrde red By: Dr. Pitts on 09-22-2022 PT Coag (PPP) [Time] 15.3 s 11.7-14.9 [facility] Laboratory - Hematology and Cell countson 09-22-2022 Erythrocyte distribution width (RBC) [Entitic vol] 53.4 fL 35.1-43.9 [facility] Work Phone: Erythrocyte distribution width (RBC) [Ratio] 15.9 % 11.6-14.6 [facility] Work Phone: Immature granulocytes/100 WBC (Bld) 1.300 % 0.0-0.9 [facility] Work Phone: Comment on above: IG% - Immature Granu locytes (promyelocytes, myelocytes and metamyelocytes) > 1% indicates that a LEFT SHIFT is Present. MCH (RBC) [Entitic mass] 27.7 pg 27.0-32.0 [facility] Work Phone: Nucleated RBC/100 WBC (Bld) [Ratio] 0.3 % 0-5 [facility] Work Phone: MCHC Auto (RBC) [Mass/Vol]on 09-22-2022 MCHC (RBC) [Mass/Vol] 29.4 g/dL 32-36 [facility] Work Phone: Mucus LM Ql (Urine sed)Order ed By: Dr. Pitts on 09-22-2022 Mucus Ql (Urine sed) 0 SEEN /hpf [facility] Nitrite Test strip Ql (U)Ord ered By: Dr. Pitts on 09-22-2022 Nitrite Ql (U) Positive Negative [facility] No Panel InformationOrdered By: Dr. Chu on 09-22-2022 Blood Gas Oxygen Percent 50 [facility] Blood Gas Sample Site L Radial [facility] Blood Gas Specimen Type [facility] Total CO2 36 mmol/L [facility] Oxygen Delivery Device Venti Mask [facility] Troponin I High Sensitivity 25 pg/mL 3.0-54.0 [facility] Comment on above: Please Note: New Laisha t Units and Gender Specific Reference Ranges. For more information see Policy Stat Procedure [place] High Sensitivity Troponin (TNIH) and attachments. No Panel Informationon 09-22 Estimated Creatinine Clearance Calc 46.32 ml/min [facility] Work Phone: Estimated GFR (MDRD) Amer 53 mL/min >60 [facility] Work Phone: Comment on above: GFR Calc Estimated GFR (MDRD) Non-Af Amer 44 mL/min >60 [facility] Work Phone: Comment on above: Non- GFR Calc Oxygen (BldA) [Partial press ure]Ordered By: Dr. Chu on 09-22-2022 Oxygen (Bld) [Partial pressure] 44 mmHG 75-100 [facility] Platelets bldon 09-22-2022 Platelets (Bld) [#/Vol] 305 10*3/uL 150-450 [facility] Work Phone: Protein Test strip Ql (U)Ord ered By: Dr. Pitts on 09-22-2022 Protein Ql (U) Negative Negative [facility] Serum or plasma calcium yunior urement (mass/volume)on 09-22-2022 Calcium [Mass/Vol] 8.8 mg/dL 8.5-10.1 [facility] Work Phone: Serum or plasma creatinine m easurement (mass/volume)on 09-22-2022 Creatinine [Mass/Vol] 1.38 mg/dL 0.55-1.02 [facility] Work Phone: Comment on above: The validity of the calculated GFR & GFRAA in patients over 70 years has not been determined. Clinical correlation is essential. Serum or plasma urea nitroge n measurement (mass/volume)on 09-22-2022 Urea nitrogen [Mass/Vol] 31 mg/dL 7-18 [facility] Work Phone: Squamous epithelial cells de tection in urine sediment by light microscopyOrdered By: Dr. Pitts on 09-22-2022 Epithelial cells.squamous LM Ql (Urine sed) 0 SEEN /hpf 5-10 [facility] Thin prep Papanicolaou smear with manual screeningon 09-22-2022 Thin prep Papanicolaou smear with manual screening 9 5-15 [facility] Work Phone: Urine blood detectionOrdered By: Dr. Pitts on 09-22-2022 RBC Ql (U) Negative Negative [facility] RBC Ql (U) 0 SEEN /hpf 0-5 [facility] Urine clarityOrdered By: Dr. Pitts on 09-22-2022 Clarity (U) Clear Clear [facility] Urine color determinationOrd ered By: Dr. Pitts on 09-22-2022 Color (U) Straw Yellow [facility] Urine glucose detectionOrder ed By: Dr. Pitts on 09-22-2022 Glucose Ql (U) 1000 mg/dl Normal [facility] Urine leukocyte esterase det ection by dipstickOrdered By: Dr. Pitts on 09-22-2022 Leukocyte esterase Test strip Ql (U) 25 /ul Negative [facility] Urine pHOrdered By: Dr. López zurita on 09-22-2022 pH (U) 6.0 [pH] 5.0 - 8.0 [facility] Urine sediment bacteria coun t by microscopy (number/high power field)Ordered By: Dr. Pitts on 09-22-2022 Bacteria LM.HPF (Urine sed) [#/Area] 3 /[HPF] None Seen [facility] Urine specific gravity measu rementOrdered By: Dr. Pitts on 09-22-2022 Specific gravity (U) [Rel density] 1.010 1.002-1.030 [facility] Urobilinogen Auto test strip Ql (U)Ordered By: Dr. Pitts on 09-22-2022 Urobilinogen Ql (U) Normal mg/dl Normal [facility] pH measurementOrdered By: Dr Susan Chu on 09-22-2022 pH (Unsp spec) 7.32 [pH] 7.35-7.45 [facility] XR Chest PA and Lateralon IMPRESSION: Slight prominence of the bilateral pulmonary markings. 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: PSCB Transcribe Date/Time: Jul 09 2022 12:10P [...] Unremarkable. [id number] [id number] N OF RADIOLOGY Provider, [facility] [place] - 07/09/2022 * * *Final Report* * [...] Slight prominence of the bilateral pulmonary markings. 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 XR Chest PA and LateralOrder ed By: [facility] Provider on 07-09-2022 [facility] Absolute lymphocyte counton 03-31-2022 Lymphocytes Auto (Unsp spec) [#/Vol] 3.25 10*3/uL 0.83-4.51 [facility] Work Phone: Basophil percentageon 2021 Basophils/100 WBC (Bld) 0.7 % 0-1 [facility] Work Phone: Chloride [Moles/Vol] 93 mmol/L 98-107 [facility] Work Phone: Eosinophils/100 WBC (Bld) 2.5 % 0-5 [facility] Work Phone: Glucose [Mass/Vol] 226 mg/dL 74-106 [facility] Work Phone: Comment on above: Glucose result great er than or equal to 200 mg/dLsuggests DIABETES MELLITUS per A.D.A. criteria. Neutrophils (Bld) [#/Vol] 8.0 10*3/uL 2.0-7.7 [facility] Work Phone: Neutrophils/100 WBC (Bld) 65.1 % 47-70 [facility] Work Phone: Potassium [Moles/Vol] 3.7 mmol/L 3.5-5.1 [facility] Work Phone: Sodium [Moles/Vol] 134 mmol/L 136-145 [facility] Work Phone: WBC (Bld) [#/Vol] 12.2 10*3/uL 4.4-11.0 [facility] Work Phone: Blood erythrocytes count (nu mber/volume)on 03-31-2022 RBC (Bld) [#/Vol] 3.91 10*6/uL 4.2-5.4 [facility] Work Phone: Blood hemoglobin measurement (mass/volume)on 03-31-2022 Hemoglobin (Bld) [Mass/Vol] 11.7 g/dL 12.0-15.0 [facility] Work Phone: Blood lymphocytes/100 leukoc yteson 03-31-2022 Lymphocytes/100 WBC (Bld) 26.6 % 19-41 [facility] Work Phone: Blood monocytes/100 leukocyt eson 03-31-2022 Monocytes/100 WBC (Bld) 4.2 % 0-10 [facility] Work Phone: Blood platelet mean volumeon 03-31-2022 Platelet mean volume (Bld) [Entitic vol] 10.4 fL 6.2-12.0 [facility] Work Phone: Determination of erythrocyte mean corpuscular volume (MCV)on 03-31-2022 MCV (RBC) [Entitic vol] 94.9 fL 81-99 [facility] Work Phone: Hematocrit Auto (Bld) [Volum e fraction]on 03-31-2022 Hematocrit (Bld) [Volume fraction] 37.1 % 37-47 [facility] Work Phone: Laboratory - Chemistry and C hemistry - challengeon 03-31-2022 CO2 [Moles/Vol] 35.0 mmol/L 21.0-32.0 [facility] Work Phone: Natriuretic peptide B (Bld) [Mass/Vol] 5.9 pg/mL 0-100 [facility] Work Phone: Urea nitrogen/Creatinine [Mass ratio] 16.5 mg/mg 10-20 [facility] Work Phone: Laboratory - Hematology and Cell countson 03-31-2022 Erythrocyte distribution width (RBC) [Entitic vol] 50.9 fL 35.1-43.9 [facility] Work Phone: Erythrocyte distribution width (RBC) [Ratio] 14.9 % 11.6-14.6 [facility] Work Phone: Immature granulocytes/100 WBC (Bld) 0.900 % 0.0-0.9 [facility] Work Phone: Comment on above: IG% - Immature Granu locytes (promyelocytes, myelocytes and metamyelocytes) > 1% indicates that a LEFT SHIFT is Present. MCH (RBC) [Entitic mass] 29.9 pg 27.0-32.0 [facility] Work Phone: Nucleated RBC/100 WBC (Bld) [Ratio] 0 % 0-5 [facility] Work Phone: MCHC Auto (RBC) [Mass/Vol]on 03-31-2022 MCHC (RBC) [Mass/Vol] 31.5 g/dL 32-36 [facility] Work Phone: No Panel Informationon 03-31 Estimated Creatinine Clearance Calc 59.27 ml/min [facility] Work Phone: Estimated GFR (MDRD) Amer 70 mL/min >60 [facility] Work Phone: Comment on above: GFR Calc Estimated GFR (MDRD) Non-Af Amer 58 mL/min >60 [facility] Work Phone: Comment on above: Non- GFR Calc Troponin I High Sensitivity 19 pg/mL 3.0-54.0 [facility] Work Phone: Comment on above: Please Note: New Laisha t Units and Gender Specific Reference Ranges. For more information see Policy Stat Procedure [place] High Sensitivity Troponin (TNIH) and attachments. Platelets bldon 03-31-2022 Platelets (Bld) [#/Vol] 302 10*3/uL 150-450 [facility] Work Phone: Serum or plasma calcium yunior urement (mass/volume)on 03-31-2022 Calcium [Mass/Vol] 9.3 mg/dL 8.5-10.1 [facility] Work Phone: Serum or plasma creatinine m easurement (mass/volume)on 03-31-2022 Creatinine [Mass/Vol] 1.09 mg/dL 0.55-1.02 [facility] Work Phone: Comment on above: The validity of the calculated GFR & GFRAA in patients over 70 years has not been determined. Clinical correlation is essential. Serum or plasma urea nitroge n measurement (mass/volume)on 03-31-2022 Urea nitrogen [Mass/Vol] 18 mg/dL 7-18 [facility] Work Phone: Thin prep Papanicolaou smear with manual screeningon 03-31-2022 Thin prep Papanicolaou smear with manual screening 6 5-15 [facility] Work Phone: UA DIP, URINE (POC)on 2021 BILIRUBIN UA (POCT) Negative Negative [facility] CLARITY UA (POCT) Clear [facility] COLOR UA (POCT) Yellow [facility] GLUCOSE UA (POCT) 500 mg/dL Abnormal Negative mg/dL [facility] HEMOGLOBIN/BLOOD UA (POCT) Negative Negative [facility] KETONE UA (POCT) Negative Negative mg/dL [facility] LEUKOCYTES UA (POCT) Negative Negative [facility] NITRITE UA (POCT) Negative Negative [facility] PH UA (POCT) 7.0 4.5 - 8.0 [facility] Protein Ql (U) Negative Negative mg/dL [facility] SPECIFIC GRAVITY UA (POCT) 1.020 1.005 - 1.030 [facility] UROBILINOGEN UA (POCT) 0.2 E.U./dL Normal E.U./ dL [facility] Absolute lymphocyte counton 01-18-2022 Lymphocytes Auto (Unsp spec) [#/Vol] 2.12 10*3/uL 0.83-4.51 [facility] Work Phone: Basophil percentageon 2021 Basophils/100 WBC (Bld) 0.5 % 0-1 [facility] Work Phone: Chloride [Moles/Vol] 93 mmol/L 98-107 [facility] Work [facility]: Eosinophils/100 WBC (Bld) 0.1 % 0-5 [facility] Work Phone: Glucose [Mass/Vol] 309 mg/dL 74-106 [facility] Work Phone: Comment on above: Glucose result great er than or equal to 200 mg/dLsuggests DIABETES MELLITUS per A.D.A. criteria. Neutrophils (Bld) [#/Vol] 10.4 10*3/uL 2.0-7.7 [facility] Work Phone: Neutrophils/100 WBC (Bld) 78.2 % 47-70 [facility] Work Phone: Potassium [Moles/Vol] 4.1 mmol/L 3.5-5.1 [facility] Work Phone: Sodium [Moles/Vol] 133 mmol/L 136-145 [facility] Work Phone: WBC (Bld) [#/Vol] 13.3 10*3/uL 4.4-11.0 [facility] Work Phone: [phone] Blood erythrocytes count (nu mber/volume)on 01-18-2022 RBC (Bld) [#/Vol] 4.23 10*6/uL 4.2-5.4 [facility] Work Phone: Blood hemoglobin measurement (mass/volume)on 01-18-2022 Hemoglobin (Bld) [Mass/Vol] 12.5 g/dL 12.0-15.0 [facility] Work Phone: Blood lymphocytes/100 leukoc yteson 01-18-2022 Lymphocytes/100 WBC (Bld) 16.0 % 19-41 [facility] Work Phone: Blood monocytes/100 leukocyt eson 01-18-2022 Monocytes/100 WBC (Bld) 4.7 % 0-10 [facility] Work Phone: Blood platelet mean volumeon 01-18-2022 Platelet mean volume (Bld) [Entitic vol] 10.1 fL 6.2-12.0 [facility] Work Phone: Determination of erythrocyte mean corpuscular volume (MCV)on 01-18-2022 MCV (RBC) [Entitic vol] 92.7 fL 81-99 [facility] Work Phone: Glucose Glucometer (BldC) [M ass/Vol]on 01-18-2022 Glucose [Mass/Vol] 282 mg/dL 70-110 [facility] Work Phone: Comment on above: MANAGEMENT OF PATIEN T CARE PER NURSING PROTOCOL Hematocrit Auto (Bld) [Volum e fraction]on 01-18-2022 Hematocrit (Bld) [Volume fraction] 39.2 % 37-47 [facility] Work Phone: Laboratory - Chemistry and C hemistry - challengeon 01-18-2022 CO2 [Moles/Vol] 35.0 mmol/L 21.0-32.0 [facility] Work Phone: Urea nitrogen/Creatinine [Mass ratio] 38.4 mg/mg 10-20 [facility] Work Phone: Laboratory - Hematology and Cell countson 01-18-2022 Erythrocyte distribution width (RBC) [Entitic vol] 45.5 fL 35.1-43.9 [facility] Work Phone: Erythrocyte distribution width (RBC) [Ratio] 13.5 % 11.6-14.6 [facility] Work Phone: Immature granulocytes/100 WBC (Bld) 0.500 % 0.0-0.9 [facility] Work Phone: Comment on above: IG% - Immature Granu locytes (promyelocytes, myelocytes and metamyelocytes) > 1% indicates that a LEFT SHIFT is Present. MCH (RBC) [Entitic mass] 29.6 pg 27.0-32.0 [facility] Work Phone: Nucleated RBC/100 WBC (Bld) [Ratio] 0 % 0-5 [facility] Work Phone: MCHC Auto (RBC) [Mass/Vol]on 01-18-2022 MCHC (RBC) [Mass/Vol] 31.9 g/dL 32-36 [facility] Work Phone: No Panel Informationon 01-18 Estimated Creatinine Clearance Calc 65.25 ml/min [facility] Work Phone: Estimated GFR (MDRD) Amer 78 mL/min >60 [facility] Work Phone: Comment on above: GFR Calc Estimated GFR (MDRD) Non-Af Amer 65 mL/min >60 [facility] Work Phone: Comment on above: Non- GFR Calc Platelets bldon 01-18-2022 Platelets (Bld) [#/Vol] 320 10*3/uL 150-450 [facility] Work Phone: Serum or plasma calcium yunior urement (mass/volume)on 01-18-2022 Calcium [Mass/Vol] 10.2 mg/dL 8.5-10.1 [facility] Work Phone: Serum or plasma creatinine m easurement (mass/volume)on 01-18-2022 Creatinine [Mass/Vol] 0.99 mg/dL 0.55-1.02 [facility] Work Phone: Comment on above: The validity of the calculated GFR & GFRAA in patients over 70 years has not been determined. Clinical correlation is essential. Serum or plasma urea nitroge n measurement (mass/volume)on 01-18-2022 Urea nitrogen [Mass/Vol] 38 mg/dL -18 [facility] Work Phone: Thin prep Papanicolaou smear with manual screeningon 01-18-2022 Thin prep Papanicolaou smear with manual screening 5 5-15 [facility] Work Phone: Laboratory - Microbiology an d Antimicrobial susceptibilityon 01-17-2022 Bacteria identified Cx Nom (Bld) No growth in 5 days. [facility] Work Phone: Basophil percentageon 2021 Cholesterol [Mass/Vol] 116 mg/dL <200 [facility] Work Phone: Comment on above: <200 mg/dL Desirable 200-240 mg/dL Borderline >240 mg/dL High Risk Triglyceride [Mass/Vol] 95 mg/dL [facility] Work Phone: Comment on above: The drugs N-Acetylcy steine and Metamizole may falsely depress this assay.Serum Triglycerides Reference Interval Normal <150 mg/dL Borderline high 150 - 199 mg/dL High 200 - 499 mg/dL Very High > or = 500 mg/dL Gram stain for investigation of transfusion reactionon 01-16-2022 Microscopic observation Gram stain Nom (Unsp spec) [facility] Work Phone: No Panel Informationon 01-16 Methicillin-Resist S.aureus DNA PCR Negative Negative [facility] Work Phone: Serum or plasma cholesterol in HDL measurement (mass/volume)on 01-16-2022 Cholesterol in HDL [Mass/Vol] 41 mg/dL [facility] Work Phone: Comment on above: The drugs N-Acetylcy steine and Metamizole may falsely depress this assay. Reference Range HDL <40 mg/dL Low HDL Cholesterol HDL >or= 60 mg/dL High HDL Cholesterol Serum or plasma cholesterol in VLDL measurement (mass/volume)on 01-16-2022 Cholesterol in VLDL [Mass/Vol] 19 mg/dL 5-40 [facility] Work Phone: Serum or plasma low density lipoprotein (LDL) cholesterol measurement (mass/volume)on 01-16-2022 Cholesterol in LDL [Mass/Vol] 56 mg/dL 0-130 [facility] Work Phone: Whole blood hemoglobin A1c/t otal hemoglobin ratio (mass fraction)on 01-16-2022 HbA1c (Bld) [Mass fraction] 9.5 % 3.8-5.6 [facility] Work Phone: Comment on above: Normal < 5.7 % Predi abetic 5.7 - 6.4 % Diabetic >or= 6.5 % Please note range changes. Base excesson 01-15-2022 Base excess Calc (BldV) [Moles/Vol] 7 mmol/L -2-2 [facility] Work Phone: Basophil percentageon 2021 Basophil percentage 33.8 mmol/L 22-26 [facility] Work Phone: Basophils/100 WBC (Bld) 88 % 95-99 [facility] Work Phone: Lactate [Moles/Vol] 1.7 mmol/L 0.4-2.0 [facility] Work Phone: Bilirubin [Mass/Vol] 0.40 mg/dL 0.20-1.00 [facility] Work Phone: Comment on above: For patients on eltr ombopag therapy, use of Dimension [place] TBIL is not recommended. Protein [Mass/Vol] 7.5 g/dL 6.4-8.2 [facility] Work Phone: CO2 (BldA) [Partial pressure ]on 01-15-2022 CO2 (Bld) [Partial pressure] 75.1 mm[Hg] 35-45 [facility] Work Phone: Laboratory - Chemistry and C hemistry - challengeon 01-15-2022 ALP [Catalytic activity/Vol] 85 U/L 45-117 [facility] Work Phone: ALT [Catalytic activity/Vol] 25 U/L 13-56 [facility] Work Phone: Globulin (S) [Mass/Vol] 4.4 g/dL 2.2-4.2 [facility] Work Phone: Natriuretic peptide B (Bld) [Mass/Vol] 22.1 pg/mL 0-100 [facility] Work Phone: No Panel Informationon 01-15 Streptococcus pneumoniae Antigen (M [facility] Work Phone: Troponin I High Sensitivity 26 pg/mL 3.0-54.0 [facility] Work Phone: Comment on above: Please Note: New Laisha t Units and Gender Specific Reference Ranges. For more information see Policy Stat Procedure [place] High Sensitivity Troponin (TNIH) and attachments. Bld Gas Crit Called To/Read Back By Yes [facility] Work Phone: Blood Gas Liter Flow 10.0 /min [facility] Work Phone: Blood Gas Notified Whom Dr Chu [facility] Work Phone: Blood Gas Sample Site R Brach [facility] Work Phone: Blood Gas Specimen Type ART [facility] Work Phone: Blood Gas Total CO2 36 mmol/L [facility] Work Phone: Oxygen Delivery Device [facility] Work Phone: Oxygen (BldA) [Partial press ure]on 01-15-2022 Oxygen (Bld) [Partial pressure] 66 mmHG 75-100 [facility] Work Phone: Serum or plasma albumin yunior urement (mass/volume)on 01-15-2022 Albumin [Mass/Vol] 3.1 g/dL 3.2-5.0 [facility] Work Phone: Serum or plasma albumin/glob ulin mass ratioon 01-15-2022 Albumin/Globulin [Mass ratio] 0.7 {ratio} 0.9-2.4 [facility] Work Phone: Thin prep Papanicolaou smear with manual screeningon 01-15-2022 Thin prep Papanicolaou smear with manual screening 20 U/L [facility] Work Phone: pH measurementon 01-15-2022 pH (Unsp spec) 7.26 [pH] 7.35-7.45 [facility] Work Phone: XR Chest PA and Lateralon IMPRESSION: Pulmonary vascular congestion/edema. No pleural effusion. An infectious process is not excluded. 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 Transcribe Date/Time: Aug 01 2021 3:44P Dictated by : ROC PRICE MD This examination was interpreted and the report reviewed and electronically signed by: ROC PRICE MD on Aug 01 2021 3:45PM [facility] DIVISION OF RADIOLOGY * * *Final Report* [...] acute osseous abnormality. DIVISION OF RADIOLOGY Provider, [facility] [place] - 08/01/2021 * * *Final Report* * [...] effusion. An infectious process is not excluded. 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 Transcribe Date/Time: Aug 01 2021 3:44P Dictated by : ROC PRICE MD This examination was interpreted and the report reviewed and electronically signed by: ROC PRICE MD on Aug 01 2021 3:45PM EST [facility] Radiology Study observation (narrative) Denita wilson [facility] XR Chest PA and LateralOrder ed By: [facility] Provider on 08-01-2021 [facility] Culture, urine Bacteria identified Cx Nom (U) Escherichia coli [facility] Work Phone: Gram stain for investigation of transfusion reaction Microscopic observation Gram stain Nom (Unsp spec) [facility] Work Phone: Influenza virus A and B and SARS-CoV-2 (COVID-19) Ag panel - Upper respiratory specim SARS-CoV-2 (COVID-19) RNA SURESH+probe Ql (Resp) [facility] Work Phone: Laboratory - Microbiology an d Antimicrobial susceptibility Bacteria identified Cx Nom (Bld) No growth in 5 days. [facility] Work Phone: Microbial respiratory cultur e Bacteria identified Respiratory culture Nom (Unsp spec) [facility] Work Phone: No Panel Information SARS-CoV-2 & FLU Antigen (Rapid) [facility] Work Phone: RSV Ag EIA RSV Ag Immune stain Ql (Tiss) [facility] Work Phone: S. pyogenes Ag IF Ql (Throat ) S. pyogenes Ag IA Ql (Unsp spec) Streptococcus Group A [facility] Work Phone: Vital Signs Date Time Vital Sign Value Performing Clinician Facility 08-19-2025 10:45-0400 Body temperature 97.8 [degF] Delmy Solorzano MD Work Phone: [facility] 08-19-2025 10:45-0400 Diastolic blood pressure 76 mm[Hg] Delmy Solorzano MD Work Phone: [facility] 08-19-2025 10:45-0400 Heart rate 91 /min Delmy Solorzano MD Work Phone: [facility] 08-19-2025 10:45-0400 Inhaled oxygen flow rate 5 L/min Delmy Solorzano MD Work Phone: [facility] 08-19-2025 10:45-0400 Respiratory rate 20 /min Delmy Solorzano MD Work Phone: [facility] 08-19-2025 10:45-0400 SaO2% (BldA) [Mass fraction] 97 % Delmy Solorzano MD Work Phone: [facility] 08-19-2025 10:45-0400 Systolic blood pressure 150 mm[Hg] Delmy Solorzano MD Work Phone: [facility] 08-19-2025 06:00-0400 Body mass index (BMI) [Ratio] 66.7 kg/m2 Delmy Solorzano MD Work Phone: [facility] 08-19-2025 06:00-0400 Body weight 181.7 kg Delmy Solorzano MD Work Phone: [facility] 08-19-2025 03:30-0400 Inhaled oxygen concentration 30 % Delmy Solorzano MD Work Phone: [facility] 08-17-2025 14:30-0400 Body height 165.1 cm Delmy Solorzano MD Work Phone: [facility] 08-16-2025 21:00-0400 Body temperature 98.4 [degF] Delmy Solorzano MD Work Phone: [facility] 08-16-2025 21:00-0400 Diastolic blood pressure 71 mm[Hg] Delmy Solorzano MD Work Phone: [facility] 08-16-2025 21:00-0400 Heart rate 88 /min Delmy Solorzano MD Work Phone: [facility] 08-16-2025 21:00-0400 Inhaled oxygen flow rate 5 L/min Delmy Solorzano MD Work Phone: [facility] 08-16-2025 21:00-0400 Respiratory rate 19 /min Delmy Solorzano MD Work Phone: [facility] 08-16-2025 21:00-0400 SaO2% (BldA) [Mass fraction] 97 % Delmy Solorzano MD Work Phone: [facility] 08-16-2025 21:00-0400 Systolic blood pressure 146 mm[Hg] Delmy Solorzano MD Work Phone: [facility] 08-16-2025 18:39-0400 Body mass index (BMI) [Ratio] 67.3 kg/m2 Delmy Solorzano MD Work Phone: [facility] 08-16-2025 18:39-0400 Body weight 185.5 kg Delmy Solorzano MD Work Phone: [facility] 08-16-2025 18:21-0400 Body height 166.37 cm Delmy Solorzano MD Work Phone: [facility] 03-28-2024 14:00-0400 Body temperature 96.9 [degF] [facility] 03-28-2024 14:00-0400 Diastolic blood pressure 61 mm[Hg] [facility] 03-28-2024 14:00-0400 Heart rate 89 /min [facility] 03-28-2024 14:00-0400 Respiratory rate 119 /min [facility] 03-28-2024 14:00-0400 SaO2% (BldA) [Mass fraction] 96 % [facility] 03-28-2024 14:00-0400 Systolic blood pressure 111 mm[Hg] [facility] 03-28-2024 00:18-0400 Inhaled oxygen flow rate 4 L/min [facility] 03-27-2024 22:21-0400 Body mass index (BMI) [Ratio] 59.6 kg/m2 [facility] 03-27-2024 22:21-0400 Body weight 162.7 kg [facility] 03-27-2024 22:19-0400 Body height 165.1 cm [facility] 01-15-2024 00:54-0500 Body temperature 98 [degF] [facility] 01-15-2024 00:54-0500 Diastolic blood pressure 82 mm[Hg] [facility] 01-15-2024 00:54-0500 Heart rate 88 /min [facility] 01-15-2024 00:54-0500 Respiratory rate 18 /min [facility] 01-15-2024 00:54-0500 SaO2% (BldA) [Mass fraction] 96 % [facility] 01-15-2024 00:54-0500 Systolic blood pressure 168 mm[Hg] [facility] 01-14-2024 22:43-0500 Body mass index (BMI) [Ratio] 59.9 kg/m2 [facility] 01-14-2024 22:43-0500 Body weight 163.4 kg [facility] 01-14-2024 22:27-0500 Body height 165.1 cm [facility] 01-14-2024 22:27-0500 Inhaled oxygen flow rate 5 L/min [facility] 07-15-2023 13:24-0400 Inhaled oxygen flow rate 4 L/min Dr. Tino Oreilly Work Phone: [facility] 07-15-2023 13:24-0400 SaO2% (BldA) [Mass fraction] 94 % Dr. Tino Oreilly Work Phone: [facility] 07-15-2023 12:46-0400 Body height 165.[address] Tino Oreilly Work Phone: [facility] 07-15-2023 12:46-0400 Body weight 170.[address] Tino Oreilly Work Phone: [facility] 07-15-2023 10:06-0400 Body temperature 97.8 [degF] Dr. Tino Oreilly Work Phone: [facility] 07-15-2023 10:06-0400 Diastolic blood pressure 60 mm[Hg] Dr. Tino Oreilly Work Phone: [facility] 07-15-2023 10:06-0400 Heart rate 70 /min Dr. Tino Oreilly Work Phone: [facility] 07-15-2023 10:06-0400 Inhaled oxygen flow rate 4 L/min Dr. Tino Oreilly Work Phone: 4(877)980-368500 [place] [address] 07-15-2023 10:06-0400 Respiratory rate 20 /min Dr. Tino Oreilly Work Phone: 4(995)713-393100 [place] [address] 07-15-2023 10:06-0400 SaO2% (BldA) [Mass fraction] 96 % Dr. Tino Oreilly Work Phone: 6(796)787-581000 [place] [address] 07-15-2023 10:06-0400 Systolic blood pressure 133 mm[Hg] Dr. Tino Oreilly Work Phone: 5(990)827-701400 [place] [address] 07-15-2023 03:57-0400 Body mass index (BMI) [Ratio] 62.4 kg/m2 Dr. Tino Oreilly Work Phone: 5(030)995-740400 [place] [address] 07-15-2023 03:57-0400 Body weight 170.[address] Tino Oreilly Work Phone: 4(793)765-938300 [place] [address] 07-14-2023 16:40-0400 Body height 165.[address] Tino Oreilly Work Phone: 6(062)393-582700 [place] [address] 07-14-2023 16:19-0400 Body temperature 98.2 [degF] Dr. Tino Oreilly Work Phone: 7(795)[phone] [place] [address] 07-14-2023 16:19-0400 Diastolic blood pressure 51 mm[Hg] Dr. Tino Oreilly Work Phone: 1(772)408-512800 [place] [address] 07-14-2023 16:19-0400 Heart rate 68 /min Dr. Tino Oreilly Work Phone: 8(512)102-035400 [place] [address] 07-14-2023 16:19-0400 Inhaled oxygen flow rate 5 L/min Dr. Tino Oreilly Work Phone: 6(625)[phone] [place] [address] 07-14-2023 16:19-0400 Respiratory rate 16 /min Dr. Tino Oreilly Work Phone: 2(763)700-147600 [place] [address] 07-14-2023 16:19-0400 SaO2% (BldA) [Mass fraction] 96 % Dr. Tino Oreilly Work Phone: [facility] 07-14-2023 16:19-0400 Systolic blood pressure 135 mm[Hg] Dr. Tino Orielly Work Phone: [facility] 07-14-2023 11:19-0400 Body mass index (BMI) [Ratio] 63.8 kg/m2 Dr. Tino Oreilly Work Phone: [facility] 07-14-2023 11:19-0400 Body weight 173.[address] Tino Oreilly Work Phone: [facility] 07-14-2023 11:09-0400 Body height 165.[address] Tino Oreilly Work Phone: [facility] 05-02-2023 12:30-0400 Body temperature 98.2 [degF] Kallie Cali RN Work Phone: [facility] 05-02-2023 12:30-0400 Diastolic blood pressure 70 mm[Hg] Kallie Cali RN Work Phone: [facility] 05-02-2023 12:30-0400 Heart rate 81 /min Kallie Cali RN Work Phone: [facility] 05-02-2023 12:30-0400 Respiratory rate 16 /min Kallie Cali RN Work Phone: [facility] 05-02-2023 12:30-0400 SaO2% (BldA) [Mass fraction] 95 % Kallie Cali RN Work Phone: [facility] 05-02-2023 12:30-0400 Systolic blood pressure 128 mm[Hg] Kallie Cali RN Work Phone: [facility] 04-28-2023 12:30-0400 Body temperature 97.7 [degF] Thierno Knupp PT Work Phone: [facility] 04-28-2023 12:30-0400 Diastolic blood pressure 70 mm[Hg] Thierno Knupp PT Work Phone: [facility] 04-28-2023 12:30-0400 Heart rate 81 /min Thierno Knupp PT Work Phone: [facility] 04-28-2023 12:30-0400 Respiratory rate 18 /min Thierno Knupp PT Work Phone: [facility] 04-28-2023 12:30-0400 SaO2% (BldA) [Mass fraction] 97 % Thierno Knupp PT Work Phone: [facility] 04-28-2023 12:30-0400 Systolic blood pressure 118 mm[Hg] Thierno Knupp PT Work Phone: [facility] 04-26-2023 11:20-0400 Body temperature 98.1 [degF] Jacquelin Mtz RN Work Phone: [facility] 04-26-2023 11:20-0400 Diastolic blood pressure 82 mm[Hg] Jacquelin Mtz RN Work Phone: [facility] 04-26-2023 11:20-0400 Heart rate 88 /min Jacquelin Mtz RN Work Phone: [facility] 04-26-2023 11:20-0400 Respiratory rate 20 /min Jacquelin Mtz RN Work Phone: [facility] 04-26-2023 11:20-0400 SaO2% (BldA) [Mass fraction] 96 % Jacquelin Mtz RN Work Phone: [facility] 04-26-2023 11:20-0400 Systolic blood pressure 128 mm[Hg] Jacquelin Mtz RN Work Phone: [facility] 04-25-2023 13:00-0400 Body temperature 97.7 [degF] Dr. Tino Oreilly Work Phone: [facility] 04-25-2023 13:00-0400 Diastolic blood pressure 75 mm[Hg] Dr. Tino rOeilly Work Phone: [facility] 04-25-2023 13:00-0400 Heart rate 70 /min Dr. Tino Oreilly Work Phone: [facility] 04-25-2023 13:00-0400 Inhaled oxygen flow rate 5 L/min Dr. Tino Oreilly Work Phone: [facility] 04-25-2023 13:00-0400 Respiratory rate 20 /min Dr. Tino Oreilly Work Phone: [facility] 04-25-2023 13:00-0400 SaO2% (BldA) [Mass fraction] 97 % Dr. Tino Oreilly Work Phone: [facility] 04-25-2023 13:00-0400 Systolic blood pressure 145 mm[Hg] Dr. Tino Oreilly Work Phone: [facility] 04-25-2023 05:29-0400 Body mass index (BMI) [Ratio] 64.9 kg/m2 Dr. Tino Oreilly Work Phone: [facility] 04-25-2023 05:29-0400 Body weight 178.[address] Tino Oreilly Work Phone: [facility] 04-25-2023 04:22-0400 Inhaled oxygen concentration 45 % Dr. Tino Oreilly Work Phone: [facility] 04-09-2023 13:37-0400 Body temperature 97.9 [degF] Bonnie Yuen RN Work Phone: [facility] 04-09-2023 13:37-0400 Diastolic blood pressure 84 mm[Hg] Bonnie Yuen RN Work Phone: [facility] 04-09-2023 13:37-0400 Heart rate 80 /min Bonnie Yuen RN Work Phone: [facility] 04-09-2023 13:37-0400 Respiratory rate 16 /min Bonnie Yuen RN Work Phone: [facility] 04-09-2023 13:37-0400 SaO2% (BldA) [Mass fraction] 95 % Bonnie Most RN Work Phone: [facility] 04-09-2023 13:37-0400 Systolic blood pressure 128 mm[Hg] Bonnie Most RN Work Phone: [facility] 04-02-2023 11:29-0400 Body temperature 98.01 [degF] Bonnie Most RN Work Phone: [facility] 04-02-2023 11:29-0400 Diastolic blood pressure 74 mm[Hg] Bonnie Most RN Work Phone: [facility] 04-02-2023 11:29-0400 Heart rate 76 /min Bonnie Most RN Work Phone: [facility] 04-02-2023 11:29-0400 Respiratory rate 16 /min Bonnie Most RN Work Phone: [facility] 04-02-2023 11:29-0400 SaO2% (BldA) [Mass fraction] 98 % Bonnie Most RN Work Phone: [facility] 04-02-2023 11:29-0400 Systolic blood pressure 126 mm[Hg] Bonnie Most RN Work Phone: [facility] 03-21-2023 13:36-0400 Body temperature 98.01 [degF] Bonnie Most RN Work Phone: [facility] 03-21-2023 13:36-0400 Diastolic blood pressure 80 mm[Hg] Bonnie Most RN Work Phone: [facility] 03-21-2023 13:36-0400 Heart rate 76 /min Bonnie Most RN Work Phone: [facility] 03-21-2023 13:36-0400 Respiratory rate 16 /min Bonnie Most RN Work Phone: [facility] 03-21-2023 13:36-0400 SaO2% (BldA) [Mass fraction] 99 % Bonnie Most RN Work Phone: [facility] 03-21-2023 13:36-0400 Systolic blood pressure 124 mm[Hg] Bonnie Most RN Work Phone: [facility] 03-14-2023 14:50-0400 Body temperature 97.39 [degF] Bonnie Most RN Work Phone: [facility] 03-14-2023 14:50-0400 Diastolic blood pressure 64 mm[Hg] Bonnie Most RN Work Phone: [facility] 03-14-2023 14:50-0400 Heart rate 88 /min Bonnie Most RN Work Phone: [facility] 03-14-2023 14:50-0400 Respiratory rate 16 /min Bonnie Most RN Work Phone: [facility] 03-14-2023 14:50-0400 SaO2% (BldA) [Mass fraction] 96 % Bonnie Most RN Work Phone: [facility] 03-14-2023 14:50-0400 Systolic blood pressure 138 mm[Hg] Bonnie Most RN Work Phone: [facility] 03-12-2023 12:42-0400 Diastolic blood pressure 76 mm[Hg] Devin Rufener PT Work Phone: [facility] 03-12-2023 12:42-0400 Heart rate 92 /min Devin Rufener PT Work Phone: [facility] 03-12-2023 12:42-0400 Respiratory rate 19 /min Devin Rufener PT Work Phone: [facility] 03-12-2023 12:42-0400 SaO2% (BldA) [Mass fraction] 97 % Devin Rufener PT Work Phone: [facility] 03-12-2023 12:42-0400 Systolic blood pressure 122 mm[Hg] Devin Rufener PT Work Phone: [facility] 03-12-2023 12:22-0400 Body temperature 97.59 [degF] Devin Rufener PT Work Phone: [facility] 03-11-2023 11:41-0400 Body temperature 97.2 [degF] Hallie Podlogar SHOOK MACHINE OPERATOR.SALES ORDER ADMINISTRATOR Work Phone: [facility] 03-11-2023 11:41-0400 Body weight 161.57 kg Hallie Podlogar SHOOK MACHINE OPERATOR.SALES ORDER ADMINISTRATOR Work Phone: [facility] 03-11-2023 11:41-0400 Diastolic blood pressure 70 mm[Hg] Hallie Podlogar SHOOK MACHINE OPERATOR.SALES ORDER ADMINISTRATOR Work Phone: [facility] 03-11-2023 11:41-0400 Heart rate 91 /min Hallie Podlogar SHOOK MACHINE OPERATOR.SALES ORDER ADMINISTRATOR Work Phone: [facility] 03-11-2023 11:41-0400 Respiratory rate 18 /min Hallie Podlogar SHOOK MACHINE OPERATOR.SALES ORDER ADMINISTRATOR Work Phone: [facility] 03-11-2023 11:41-0400 SaO2% (BldA) [Mass fraction] 97 % Hallie Podlogar SHOOK MACHINE OPERATOR.SALES ORDER ADMINISTRATOR Work Phone: [facility] 03-11-2023 11:41-0400 Systolic blood pressure 132 mm[Hg] Hallie Podlogar SHOOK MACHINE OPERATOR.SALES ORDER ADMINISTRATOR Work Phone: [facility] 03-10-2023 11:32-0400 Body temperature 99.19 [degF] Chey Acharya RN Work Phone: [facility] 03-10-2023 11:32-0400 Diastolic blood pressure 72 mm[Hg] Chey Peralta N Work Phone: [facility] 03-10-2023 11:32-0400 Heart rate 88 /min Chey Acharya RN Work Phone: [facility] 03-10-2023 11:32-0400 Respiratory rate 18 /min Chey Acharya RN Work Phone: [facility] 03-10-2023 11:32-0400 SaO2% (BldA) [Mass fraction] 97 % Chey Acharya RN Work Phone: [facility] 03-10-2023 11:32-0400 Systolic blood pressure 126 mm[Hg] Chey Acharya RN Work Phone: [facility] 03-07-2023 11:53-0400 Body temperature 97.7 [degF] Chey Acharya RN Work Phone: [facility] 03-07-2023 11:53-0400 Diastolic blood pressure 84 mm[Hg] Chey Peralta N Work Phone: [facility] 03-07-2023 11:53-0400 Heart rate 104 /min Chey Acharya RN Work Phone: [facility] 03-07-2023 11:53-0400 Respiratory rate 20 /min Chey Acharya RN Work Phone: [facility] 03-07-2023 11:53-0400 SaO2% (BldA) [Mass fraction] 98 % Chey Acharya RN Work Phone: [facility] 03-07-2023 11:53-0400 Systolic blood pressure 142 mm[Hg] Chey Acharya RN Work Phone: [facility] 03-05-2023 15:04-0400 Body temperature 97.8 [degF] Dr. Tino Oreilly Work Phone: [facility] 03-05-2023 15:04-0400 Diastolic blood pressure 75 mm[Hg] Dr. Tino Oreilly Work Phone: [facility] 03-05-2023 15:04-0400 Heart rate 72 /min Dr. Tino Oreilly Work Phone: [facility] 03-05-2023 15:04-0400 Inhaled oxygen flow rate 5 L/min Dr. Tino Oreilly Work Phone: [facility] 03-05-2023 15:04-0400 Respiratory rate 15 /min Dr. Tino Oreilly Work Phone: [facility] 03-05-2023 15:04-0400 SaO2% (BldA) [Mass fraction] 97 % Dr. Tino Oreilly Work Phone: [facility] 03-05-2023 15:04-0400 Systolic blood pressure 159 mm[Hg] Dr. Tino Oreilly Work Phone: [facility] 03-05-2023 04:09-0400 Body mass index (BMI) [Ratio] 61.9 kg/m2 Dr. Tino Oreilly Work Phone: [facility] 03-05-2023 04:09-0400 Body weight 168.[address] Tino Oreilly Work Phone: [facility] 03-05-2023 00:55-0400 Inhaled oxygen concentration 40 % Dr. Tino Oreilly Work Phone: [facility] 03-03-2023 10:39-0400 Body height 165.[address] Tino Oreilly Work Phone: [facility] 02-27-2023 16:50-0400 Body temperature 98.01 [degF] Bonnie Yuen RN Work Phone: [facility] 02-27-2023 16:50-0400 Diastolic blood pressure 76 mm[Hg] Bonnie Yuen RN Work Phone: [facility] 02-27-2023 16:50-0400 Heart rate 92 /min Bonnie Yuen RN Work Phone: [facility] 02-27-2023 16:50-0400 Respiratory rate 20 /min Bonnie Yuen RN Work Phone: [facility] 02-27-2023 16:50-0400 SaO2% (BldA) [Mass fraction] 93 % Bonnie Yuen RN Work Phone: [facility] 02-27-2023 16:50-0400 Systolic blood pressure 124 mm[Hg] Bonnie Yuen RN Work Phone: [facility] 02-23-2023 14:00-0400 Body temperature 98.29 [degF] Zahra Jackson RN Work Phone: [facility] 02-23-2023 14:00-0400 Diastolic blood pressure 82 mm[Hg] Zahra Peralta N Work Phone: [facility] 02-23-2023 14:00-0400 Heart rate 84 /min Zahra Jackson RN Work Phone: [facility] 02-23-2023 14:00-0400 Respiratory rate 20 /min Zahra Jackson RN Work Phone: [facility] 02-23-2023 14:00-0400 SaO2% (BldA) [Mass fraction] 96 % Zahra Jackson RN Work Phone: [facility] 02-23-2023 14:00-0400 Systolic blood pressure 138 mm[Hg] Zahra Jackson RN Work Phone: [facility] 02-18-2023 21:00-0400 Diastolic blood pressure 76 mm[Hg] Dr. Tino Oreilly Work Phone: [facility] 02-18-2023 21:00-0400 Systolic blood pressure 119 mm[Hg] Dr. Tino Oreilly Work Phone: [facility] 02-18-2023 20:00-0400 Body temperature 98.1 [degF] Dr. Tino Oreilly Work Phone: [facility] 02-18-2023 20:00-0400 Heart rate 103 /min Dr. Tino Oreilly Work Phone: [facility] 02-18-2023 20:00-0400 Inhaled oxygen flow rate 5 L/min Dr. Tino Oreilly Work Phone: [facility] 02-18-2023 20:00-0400 Respiratory rate 14 /min Dr. Tino Oreilly Work Phone: [facility] 02-18-2023 20:00-0400 SaO2% (BldA) [Mass fraction] 92 % Dr. Tino Oreilly Work Phone: [facility] 02-18-2023 17:23-0400 Body mass index (BMI) [Ratio] 63.6 kg/m2 Dr. Tino Oreilly Work Phone: [facility] 02-18-2023 17:23-0400 Body weight 173.[address] Tino Oreilly Work Phone: [facility] 02-18-2023 16:42-0400 Body height 165.[address] Tino Oreilly Work Phone: [facility] 02-18-2023 11:13-0400 Diastolic blood pressure 72 mm[Hg] Panfilo Oreilly MD Work Phone: [facility] 02-18-2023 11:13-0400 Heart rate 99 /min Panfilo Oreilly MD Work Phone: [facility] 02-18-2023 11:13-0400 Respiratory rate 18 /min Panfilo Oreilly MD Work Phone: [facility] 02-18-2023 11:13-0400 SaO2% (BldA) [Mass fraction] 91 % Panfilo Oreilly MD Work Phone: [facility] 02-18-2023 11:13-0400 Systolic blood pressure 128 mm[Hg] Panfilo Oreilly MD Work Phone: [facility] 01-12-2023 23:09-0500 Body height 165.[address] Tino Oreilly Work Phone: [facility] 01-12-2023 23:09-0500 Body mass index (BMI) [Ratio] 64.3 kg/m2 Dr. Tino Oreilly Work Phone: [facility] 01-12-2023 23:09-0500 Body temperature 98.2 [degF] Dr. Tino Oreilly Work Phone: [facility] 01-12-2023 23:09-0500 Body weight 175.[address] Tino Oreilly Work Phone: [facility] 01-12-2023 23:09-0500 Diastolic blood pressure 63 mm[Hg] Dr. Tino Oreilly Work Phone: [facility] 01-12-2023 23:09-0500 Heart rate 85 /min Dr. Tino Oreilly Work Phone: [facility] 01-12-2023 23:09-0500 Inhaled oxygen flow rate 3 L/min Dr. Tino Oreilly Work Phone: [facility] 01-12-2023 23:09-0500 Respiratory rate 16 /min Dr. Tino Oreilly Work Phone: [facility] 01-12-2023 23:09-0500 SaO2% (BldA) [Mass fraction] 96 % Dr. Tino Oreilly Work Phone: [facility] 01-12-2023 23:09-0500 Systolic blood pressure 157 mm[Hg] Dr. Tino Oreilly Work Phone: [facility] 12-30-2022 13:37-0500 SaO2% (BldA) [Mass fraction] 93 % [facility] Comment on above: Order Comment: Specimen Type: ARTERIAL B LOOD SPECIMENOrdering Facility: [facility] Address: [address] [place] [address] Performed By: #### A LLBG ####[facility] LABORATORYCLIA [id number] [address] OF [facility] 12-27-2022 07:00-0500 SaO2% (BldA) [Mass fraction] 97 % [facility] Comment on above: Order Comment: Specimen Type: ARTERIAL B LOOD SPECIMENOrdering Facility: [facility] Address: [address] [place] [address] Performed By: #### A LLBG ####[facility] LABORATORYCLIA [id number] [address] OF [facility] 12-25-2022 13:42-0500 SaO2% (BldA) [Mass fraction] 97 % [facility] Comment on above: Order Comment: Specimen Type: ARTERIAL B LOOD SPECIMENOrdering Facility: [facility] Address: [address] [place] [address] Performed By: #### A LLBG ####[facility] LABORATORYCLIA [id number] [address] 12-25-2022 10:54-0500 SaO2% (BldA) [Mass fraction] 99 % [facility] Comment on above: Order Comment: Specimen Type: ARTERIAL B LOOD SPECIMENOrdering Facility: [facility] Address: [address] [place] [address] Performed By: #### A LLBG ####[facility]ORATORYCLIA [id number] [address] 12-25-2022 08:26-0500 SaO2% (BldA) [Mass fraction] 96 % PANFILO [facility] Comment on above: Order Comment: Specimen Type: ARTERIAL B LOOD SPECIMENOrdering Facility: [facility] Address: [address] [place] [address] Performed By: #### A LLBG ####[facility]ORATORYCLIA [id number] [address] 12-24-2022 23:35-0500 Diastolic blood pressure 47 mm[Hg] Dr. Tino Oreilly Work Phone: [facility] 12-24-2022 23:35-0500 Heart rate 109 /min Dr. Tino Oreilly Work Phone: [facility] 12-24-2022 23:35-0500 Inhaled oxygen flow rate 5 L/min Dr. Tino Oreilly Work Phone: [facility] 12-24-2022 23:35-0500 Respiratory rate 16 /min Dr. Tino Oreilly Work Phone: 9(651)695-364315 [place] [address] 12-24-2022 23:35-0500 SaO2% (BldA) [Mass fraction] 94 % Dr. Tino Oreilly Work Phone: 8(333)735-515100 [place] [address] 12-24-2022 23:35-0500 Systolic blood pressure 109 mm[Hg] Dr. Tino Oreilly Work Phone: 7(462)490-903100 [place] [address] 12-24-2022 21:08-0500 Body height 170.[address] Tino Oreilly Work Phone: 2(770)811-214900 [place] [address] 12-24-2022 21:08-0500 Body mass index (BMI) [Ratio] 58.7 kg/m2 Dr. Tino Oreilly Work Phone: 0(790)542-958900 [place] [address] 12-24-2022 21:08-0500 Body temperature 97 [degF] Dr. Tino Oreilly Work Phone: 8(791)454-977600 [place] [address] 12-24-2022 21:08-0500 Body weight 170.[address] Tino Oreilly Work Phone: 5(323)677-009500 [place] [address] 12-20-2022 16:28-0500 Body temperature 98.5 [degF] Dr. Tino Oreilly Work Phone: 8(982)119-982600 [place] [address] 12-20-2022 16:28-0500 Diastolic blood pressure 96 mm[Hg] Dr. Tino Oreilly Work Phone: 2(712)718-837500 [place] [address] 12-20-2022 16:28-0500 Heart rate 103 /min Dr. Tino Oreilly Work Phone: 8(827)919-235300 [place] [address] 12-20-2022 16:28-0500 Inhaled oxygen flow rate 2 L/min Dr. Tino Oreilly Work Phone: 8(891)675-930800 [place] [address] 12-20-2022 16:28-0500 Respiratory rate 19 /min Dr. Tino Oreilly Work Phone: 1(194)471-984500 [place] [address] 12-20-2022 16:28-0500 SaO2% (BldA) [Mass fraction] 94 % Dr. Tino Oreilly Work Phone: 1(262)324-280315 [place] [address] 12-20-2022 16:28-0500 Systolic blood pressure 149 mm[Hg] Dr. Tino Oreilly Work Phone: 2(508)805-197000 [place] [address] 12-19-2022 23:55-0500 Inhaled oxygen concentration 35 % Dr. Tino Oreilly Work Phone: 3(825)095-017900 [place] [address] 12-19-2022 13:59-0500 Body height 170.[address] Tino Oreilly Work Phone: 7(438)816-525700 [place] [address] 12-19-2022 13:59-0500 Body weight 174.[address] Tino Oreilly Work Phone: 0(594)616-161300 [place] [address] 12-19-2022 00:31-0500 Body mass index (BMI) [Ratio] 60.1 kg/m2 Dr. Tino Oreilly Work Phone: 8(344)722-049900 [place] [address] 12-18-2022 23:35-0500 Body temperature 97.9 [degF] Dr. Tino Oreilly Work Phone: 3(556)494-934300 [place] [address] 12-18-2022 23:35-0500 Diastolic blood pressure 104 mm[Hg] Dr. Tino Oreilly Work Phone: 9(301)790-306500 [place] [address] 12-18-2022 23:35-0500 Heart rate 101 /min Dr. Tino Oreilly Work Phone: 4(106)005-528100 [place] [address] 12-18-2022 23:35-0500 Inhaled oxygen flow rate 3 L/min Dr. Tino Oreilly Work Phone: 4(938)282-720800 [place] [address] 12-18-2022 23:35-0500 Respiratory rate 16 /min Dr. Tino Oreilly Work Phone: 5(682)522-290700 [place] [address] 12-18-2022 23:35-0500 SaO2% (BldA) [Mass fraction] 92 % Dr. Tino Oreilly Work Phone: 5(529)097-765000 [place] [address] 12-18-2022 23:35-0500 Systolic blood pressure 153 mm[Hg] Dr. Tino Oreilly Work Phone: 3(739)573-427115 [place] [address] 12-18-2022 21:35-0500 Body height 170.[address] Tino Oreilly Work Phone: 3(763)588-209700 [place] [address] 12-18-2022 21:35-0500 Body mass index (BMI) [Ratio] 61.9 kg/m2 Dr. Tino Oreilly Work Phone: 5(269)661-906400 [place] [address] 12-18-2022 21:35-0500 Body weight 179.[address] Tino Oreilly Work Phone: 7(191)147-868300 [place] [address] 12-09-2022 14:17-0500 Diastolic blood pressure 87 mm[Hg] Dr. Tino Oreilly Work Phone: 8(059)942-859400 [place] [address] 12-09-2022 14:17-0500 Heart rate 98 /min Dr. Tino Oreilly Work Phone: 4(496)517-093000 [place] [address] 12-09-2022 14:17-0500 Systolic blood pressure 111 mm[Hg] Dr. Tino Oreilly Work Phone: 0(693)187-913400 [place] [address] 12-09-2022 12:55-0500 Inhaled oxygen flow rate 4 L/min Dr. Tino Oreilly Work Phone: 3(931)206-476100 [place] [address] 12-09-2022 12:55-0500 Respiratory rate 23 /min Dr. Tino Oreilly Work Phone: 5(930)731-278700 [place] [address] 12-09-2022 12:55-0500 SaO2% (BldA) [Mass fraction] 94 % Dr. Tino Oreilly Work Phone: 0(120)148-294226 [address] 12-09-2022 11:58-0500 Body height 170.[address] Tino Oreilly Work Phone: 9(638)014-293000 [place] [address] Work Phone: 12-09-2022 11:58-0500 Body mass index (BMI) [Ratio] 59.8 kg/m2 Dr. Tino Oreilly Work Phone: 1(123)049-514000 [place] [address] 12-09-2022 11:58-0500 Body temperature 97.8 [degF] Dr. Tino Oreilly Work Phone: 3(244)304-691500 [place] [address] 12-09-2022 11:58-0500 Body weight 173.[address] Tino Oreilly Work Phone: 8(262)850-466600 [place] [address] 11-01-2022 16:50-0500 Body temperature 98.7 [degF] Dr. Tino Oreilly Work Phone: 0(517)440-555100 [place] [address] 11-01-2022 16:50-0500 Diastolic blood pressure 54 mm[Hg] Dr. Tino Oreilly Work Phone: 0(610)083-230900 [place] [address] 11-01-2022 16:50-0500 Heart rate 94 /min Dr. Tino Oreilly Work Phone: 4(342)433-003600 [place] [address] 11-01-2022 16:50-0500 Inhaled oxygen flow rate 15 L/min Dr. Tino Oreilly Work Phone: 5(865)660-370800 [place] [address] 11-01-2022 16:50-0500 Respiratory rate 18 /min Dr. Tino Oreilly Work Phone: 0(942)999-944700 [place] [address] 11-01-2022 16:50-0500 SaO2% (BldA) [Mass fraction] 97 % Dr. Tino Oreilly Work Phone: 4(660)711-399900 [place] [address] 11-01-2022 16:50-0500 Systolic blood pressure 121 mm[Hg] Dr. Tino Oreilly Work Phone: 2(562)687-543200 [place] [address] 11-01-2022 14:36-0500 Body height 165.[address] Tino Oreilly Work Phone: 6(964)152-066900 [place] [address] Work Phone: 11-01-2022 14:36-0500 Body mass index (BMI) [Ratio] 62.9 kg/m2 Dr. Tino Oreilly Work Phone: 1(014)640-217315 [place] [address] 11-01-2022 14:36-0500 Body weight 171.[address] Tino Oreilly Work Phone: [facility] 10-18-2022 10:41-0500 Body temperature 96.8 [degF] Panfilo Oreilly MD Work Phone: [facility] 10-18-2022 10:41-0500 Body weight 178.9 kg Panfilo Oreilly MD Work Phone: [facility] 10-18-2022 10:41-0500 Diastolic blood pressure 70 mm[Hg] Panfilo Oreilly MD Work Phone: [facility] 10-18-2022 10:41-0500 Heart rate 100 /min Panfilo Oreilly MD Work Phone: [facility] 10-18-2022 10:41-0500 Respiratory rate 20 /min Panfilo Oreilly MD Work Phone: [facility] 10-18-2022 10:41-0500 SaO2% (BldA) [Mass fraction] 97 % Panfilo Oreilly MD Work Phone: [facility] 10-18-2022 10:41-0500 Systolic blood pressure 124 mm[Hg] Panfilo Oreilly MD Work Phone: [facility] 09-24-2022 12:44-0400 Body temperature 97.7 [degF] Dr. Tino Oreilly Work Phone: 5(476)737-731315 [place] [address] 09-24-2022 12:44-0400 Diastolic blood pressure 80 mm[Hg] Dr. Tino Oreilly Work Phone: [facility] 09-24-2022 12:44-0400 Heart rate 86 /min Dr. Tino Oreilly Work Phone: [facility] 09-24-2022 12:44-0400 Inhaled oxygen flow rate 3 L/min Dr. Tino Oreilly Work Phone: 0(076)011-226815 [place] [address] 09-24-2022 12:44-0400 Respiratory rate 18 /min Dr. Tino Oreilly Work Phone: [facility] 09-24-2022 12:44-0400 SaO2% (BldA) [Mass fraction] 96 % Dr. Tino Oreilly Work Phone: [facility] 09-24-2022 12:44-0400 Systolic blood pressure 142 mm[Hg] Dr. Tino Oreilly Work Phone: [facility] 09-24-2022 10:58-0400 Inhaled oxygen concentration 30 % Dr. Tino Oreilly Work Phone: [facility] 09-24-2022 06:00-0400 Body weight 172.[address] Tino Oreilly Work Phone: [facility] 09-23-2022 13:40-0400 Body height 165.[address] Tino Oreilly Work Phone: [facility] Work Phone: 09-22-2022 19:33-0400 Body mass index (BMI) [Ratio] 64.3 kg/m2 Dr. Tino Oreilly Work Phone: [facility] 09-22-2022 18:30-0400 Body temperature 97.7 [degF] [facility] Work Phone: 09-22-2022 18:30-0400 Diastolic blood pressure 71 mm[Hg] [facility] Work Phone: 09-22-2022 18:30-0400 Heart rate 103 /min [facility] Work Phone: 09-22-2022 18:30-0400 Inhaled oxygen concentration 31 % [facility] Work Phone: 09-22-2022 18:30-0400 Inhaled oxygen flow rate 6 L/min [facility] Work Phone: 09-22-2022 18:30-0400 Respiratory rate 18 /min [facility] Work Phone: 09-22-2022 18:30-0400 SaO2% (BldA) [Mass fraction] 92 % [facility] Work Phone: 09-22-2022 18:30-0400 Systolic blood pressure 120 mm[Hg] [facility] Work Phone: 09-22-2022 16:28-0400 Body height 165.1 cm [facility] Work Phone: 09-22-2022 16:28-0400 Body mass index (BMI) [Ratio] 65.9 kg/m2 [facility] Work Phone: 09-22-2022 16:28-0400 Body weight 179.8 kg [facility] Work Phone: 07-23-2022 10:27-0400 Body height 166.4 cm Berenice Bauman MD Work Phone: [facility] 07-23-2022 10:27-0400 Body temperature 98.2 [degF] Berenice Bauman MD Work Phone: [facility] 07-23-2022 10:27-0400 Body weight 176.45 kg Berenice Bauman MD Work Phone: [facility] 07-23-2022 10:27-0400 Diastolic blood pressure 71 mm[Hg] Berenice Bauman MD Work Phone: [facility] 07-23-2022 10:27-0400 Heart rate 103 /min Berenice Bauman MD Work Phone: [facility] 07-23-2022 10:27-0400 SaO2% (BldA) [Mass fraction] 92 % Berenice Bauman MD Work Phone: [facility] 07-23-2022 10:27-0400 Systolic blood pressure 136 mm[Hg] Berenice Bauman MD Work Phone: [facility] 03-31-2022 22:56-0400 Diastolic blood pressure 85 mm[Hg] Dr. Tino Oreilly Work Phone: [facility] Work Phone: 03-31-2022 22:56-0400 Heart rate 90 /min Dr. Tino Oreilly Work Phone: [facility] Work Phone: 03-31-2022 22:56-0400 Respiratory rate 18 /min Dr. Tino Oreilly Work Phone: [facility] Work Phone: 03-31-2022 22:56-0400 Systolic blood pressure 102 mm[Hg] Dr. Tino Oreilly Work Phone: [facility] Work Phone: 03-31-2022 21:48-0400 SaO2% (BldA) [Mass fraction] 94 % Dr. Tino Oreilly Work Phone: [facility] Work Phone: 03-31-2022 20:45-0400 Body height 165.[address] Tino Oreilly Work Phone: [facility] Work Phone: 03-31-2022 20:45-0400 Body mass index (BMI) [Ratio] 64.2 kg/m2 Dr. Tino Oreilly Work Phone: [facility] Work Phone: 03-31-2022 20:45-0400 Body temperature 97.3 [degF] Dr. Tino Oreilly Work Phone: [facility] Work Phone: 03-31-2022 20:45-0400 Body weight 175.[address] Tino Oreilly Work Phone: [facility] Work Phone: 03-19-2022 10:09-0400 Body weight 168.65 kg Hallie Martinez APRN.SALES ORDER ADMINISTRATOR Work Phone: [facility] 03-19-2022 10:09-0400 Diastolic blood pressure 82 mm[Hg] Hallie Martinez APRN.SALES ORDER ADMINISTRATOR Work Phone: [facility] 03-19-2022 10:09-0400 Heart rate 83 /min Hallie Podlogar SHOOK MACHINE OPERATOR.SALES ORDER ADMINISTRATOR Work Phone: [facility] 03-19-2022 10:09-0400 Respiratory rate 20 /min Hallie Podlogar SHOOK MACHINE OPERATOR.SALES ORDER ADMINISTRATOR Work Phone: [facility] 03-19-2022 10:09-0400 SaO2% (BldA) [Mass fraction] 97 % Hallie Podlogar SHOOK MACHINE OPERATOR.SALES ORDER ADMINISTRATOR Work Phone: [facility] 03-19-2022 10:09-0400 Systolic blood pressure 140 mm[Hg] Hallie Podlogar SHOOK MACHINE OPERATOR.SALES ORDER ADMINISTRATOR Work Phone: [facility] 03-01-2022 12:43-0400 Body height 1950.[address] Tino Oreilly Work Phone: [facility] Work Phone: 03-01-2022 12:43-0400 Body weight 163.[address] Tino Oreilly Work Phone: [facility] Work Phone: 03-01-2022 12:43-0400 Heart rate 120 /min Dr. Tino Oreilly Work Phone: [facility] Work Phone: 03-01-2022 12:43-0400 SaO2% (BldA) [Mass fraction] 90 % Dr. Tino Oreilly Work Phone: [facility] Work Phone: 02-07-2022 08:57-0500 Body temperature 98.6 [degF] Dr. Tino Oreilly Work Phone: [facility] Work Phone: 02-07-2022 08:57-0500 Diastolic blood pressure 92 mm[Hg] Dr. Tino Oreilly Work Phone: [facility] Work Phone: 02-07-2022 08:57-0500 Heart rate 103 /min Dr. Tino Oreilly Work Phone: [facility] Work Phone: 02-07-2022 08:57-0500 Respiratory rate 19 /min Dr. Tino Oreilly Work Phone: [facility] Work Phone: 02-07-2022 08:57-0500 SaO2% (BldA) [Mass fraction] 91 % Dr. Tino Oreilly Work Phone: [facility] Work Phone: 02-07-2022 08:57-0500 Systolic blood pressure 113 mm[Hg] Dr. Tino Oreilly Work Phone: [facility] Work Phone: 01-18-2022 13:59-0500 Heart rate 69 /min Dr. Tino Oreilly Work Phone: [facility] Work Phone: 01-18-2022 13:59-0500 Respiratory rate 19 /min Dr. Tino Oreilly Work Phone: [facility] Work Phone: 01-18-2022 11:47-0500 Body weight 173.[address] Tino Oreilly Work Phone: [facility] Work Phone: 01-18-2022 08:02-0500 Diastolic blood pressure 79 mm[Hg] Dr. Tino Oreilly Work Phone: [facility] Work Phone: 01-18-2022 08:02-0500 Systolic blood pressure 152 mm[Hg] Dr. Tino Oreilly Work Phone: [facility] Work Phone: 01-18-2022 07:58-0500 Body temperature 97.9 [degF] Dr. Tino Oreilly Work Phone: [facility] Work Phone: 01-18-2022 07:58-0500 SaO2% (BldA) [Mass fraction] 96 % Dr. Tino Oreilly Work Phone: [facility] Work Phone: 01-18-2022 03:27-0500 Inhaled oxygen concentration 45 % Dr. Tino Oreilly Work Phone: [facility] Work Phone: 01-15-2022 18:20-0500 Body mass index (BMI) [Ratio] 64.7 kg/m2 Dr. Tino Oreilly Work Phone: [facility] Work Phone: Encounters Encounter Date Encounter Type Care Provider Facility Start: 10-19-2025 [facility] Facility:[facility] Start: 10-14-2025 ambulatory [facility] Facility: [facility] Start: 09-28-2025 End: 09-30-2025 ambulatory [facility] Facility:[facility] Start: 09-19-2025 ambulatory [facility] Facility:[facility] Start: 08-19-2025 Non-patient / Non-visit Dr. Jersey bloom MD [facility] Work Phone: Start: 08-18-2025 Non-patient / Non-visit Dr. Jersey bloom MD -[facility] Work Phone: Start: 08-17-2025 Non-patient / Non-visit Dr. Jersey bloom MD -[facility] Work Phone: Start: 08-16-2025 ambulatory Olamide Mas Facility :[facility] Start: 08-16-2025 End: 08-19-2025 Evaluation and management of inpatient Dr. Olamide Mas MD -[facility] Work Phone: Start: 08-15-2025 ambulatory [facility] Facility: [facility] Start: 07-15-2025 End: 07-15-2025 [facility] Start: 06-16-2025 End: 06-16-2025 [facility] Start: 06-09-2025 End: 06-09-2025 ambulatory [facility] Facility:[facility] Start: 05-31-2025 End: 05-31-[address] [facility] Start: 05-31-2025 Encounter for genera l adult medical examination without abnormal findings [facility] Start: 11-12-2024 ambulatory Chalon Barbi [facility] Start: 11-09-2024 ambulatory Olamide L White Facility :[facility] Start: 11-09-2024 End: 11-12-2024 Evaluation and management of inpatient Olamide L White Facility:[facility] Start: 03-27-2024 End: 03-28-2024 Emergency department patient visit [facility]Emergency Department Work Phone: Start: 03-23-2024 End: 03-23-2024 ambulatory [facility] Work Phone: Start: 03-23-2024 End: 03-23-2024 Patient encounter procedure [facility] Start: 01-14-2024 End: 01-15-2024 Emergency department patient visit [facility] Work Phone: Start: 01-02-2024 End: 01-02-2024 ambulatory [facility] Work Phone: Start: 01-02-2024 End: 01-02-2024 Patient encounter procedure [facility] - [facility] Work Phone: Start: 10-14-2023 End: 10-14-[address] Tino Oreilly Work Phone: [facility] Work Phone: Start: 10-14-2023 End: 10-14-[address] Tino Oreilly Work Phone: [facility] Work Phone: Start: 09-25-2023 End: 09-25-[address] Tino Oreilly Work Phone: [facility] Work Phone: Start: 09-25-2023 End: 09-25-[address] Tino Oreilly Work Phone: [facility] Start: 09-18-2023 End: 09-18-[address] Tino Oreilly Work Phone: [facility] Work Phone: Start: 09-18-2023 End: 09-18-[address] Tino Oreilly Work Phone: [facility] Start: 08-05-2023 Telephone encounter Tino Oreilly MD Work Phone: [facility] Comment on above: Opened In Error Start: 08-01-2023 Refill Panfilo Oreilly MD Work Phone: [facility] Comment on above: Refill Request Start: 07-30-2023 Telephone encounter Tino Oreilly MD Work Phone: [facility] Comment on above: Appointment Start: 07-29-2023 Refill No Pcp SHOOK MACHINE OPERATOR [facility] Comment on above: Refill Request Start: 07-23-2023 Refill No Pcp SHOOK MACHINE OPERATOR [facility] Comment on above: Refill Request Start: 07-15-2023 Non-patient / Non-visit Dr. Moe Oreilly Work Phone: [facility] Work Phone: Start: 07-14-2023 Non-patient / Non-visit Dr. Moe Oreilly Work Phone: [facility] Work Phone: Start: 07-14-2023 End: 07-15-2023 Evaluation and management of inpatient Dr. Tino Oreilly Work Phone: [facility] Work Phone: Start: 07-14-2023 End: 07-15-[address] Tino Oreilly Work Phone: [facility] Work Phone: Start: 07-14-2023 Evaluation and management of inpatient Dr. Tino Oreilly Work Phone: [facility]-Progressive Care Unit Work Phone: Start: 07-14-[address] Dalila Oreilly Work Phone: [facility] Work Phone: Start: 07-08-2023 Telephone encounter Tino Oreilly MD Work Phone: [facility] Comment on above: Medication Request Insurance Authorizat ion (Test strips/lancets ) Refill Request Start: 06-25-2023 Refill No Pcp SHOOK MACHINE OPERATOR [facility] Comment on above: Opened In Error Start: 06-17-2023 Refill Panfilo Oreilly MD Work Phone: [facility] Comment on above: Refill Request Start: 06-06-2023 Patient Outreach Omaira Taveras RN A [facility] Care Management Comment on above: Transition Of Care ( TCM Initial Outreach: [facility] [place] 05/31/23, KERRY) Start: 05-29-2023 Refill Panfilo Oreilly MD Work Phone: [facility] Comment on above: Opened In Error Start: 05-23-2023 Refill Panfilo Oreilly MD Work Phone: [facility] Comment on above: Refill Request Start: 05-14-2023 Telephone encounter Tino Oreilly MD Work Phone: [facility] Comment on above: DME Start: 05-02-2023 Telephone encounter Kallie mojica RN Work Phone: [facility] Comment on above: Home Care (Pt d/c to day) Opened In Error Start: 05-02-2023 End: 05-02-2023 Home visit Kallie Cali RN Work Phone: [facility] Comment on above: SN AGENCY DC W VISIT Start: 04-30-2023 End: 04-30-2023 Home visit Roc Osullivan MACHINE OPERATOR HAY STACKER Work Phone: [facility] Comment on above: SN UNMADE VISIT Start: 04-30-2023 ambulatory Panfilo Oreilly MD Work Phone: [facility] Start: 04-29-2023 End: 04-29-2023 Home visit Karyn Becerrairineo DANCE STUDIO MANAGER Work Phone: [facility] Comment on above: TELEPHONE CONTACT Start: 04-28-2023 End: 04-28-2023 Home visit Thierno Deuce PT Work Phone: [facility] Comment on above: PT EVAL Start: 04-28-2023 Non-patient / Non-visit Dr. Moe Oreilly Work Phone: [facility] Work Phone: Start: 04-26-2023 End: 04-26-2023 Home visit Jacquelin Mtz RN Work Phone: [facility] Comment on above: SN JIGNESH Start: 04-25-2023 Refill Panfilo Oreilly MD Work Phone: [facility] Comment on above: Refill Request Start: 04-25-2023 Non-patient / Non-visit Dr. Moe Oreilly Work Phone: [facility] Work Phone: Start: 04-24-2023 Non-patient / Non-visit Dr. Moe Oreilly Work Phone: [facility] Start: 04-24-2023 End: 04-24-2023 Home visit Jacquelin Mtz RN Work Phone: [facility] Comment on above: SN TRANSFER Start: 04-24-2023 Non-patient / Non-visit Dr. Moe Oreilly Work Phone: [facility] Work Phone: Start: 04-23-2023 End: 04-25-2023 Evaluation and management of inpatient Dr. Tino Oreilly Work Phone: [facility]-Medical Surgical 3 Work Phone: Start: 04-09-2023 End: 04-09-2023 Home visit Bonnie Yuen RN Work Phone: [facility] Comment on above: SN ROUTINE Start: 04-02-2023 End: 04-02-2023 Home visit Bonnie Yuen RN Work Phone: [facility] Comment on above: SN ROUTINE Start: 03-28-2023 Refill Panfilo Oreilly MD Work Phone: [facility] Comment on above: Refill Request Start: 03-27-2023 Documentation procedure Randy Sellers MD Work Phone: [facility] Start: 03-27-2023 Letter encounter Conrado Sellers MD Work Phone: [facility] Start: 03-21-2023 End: 03-21-2023 Home visit Bonnie Yuen RN Work Phone: [facility] Comment on above: SN ROUTINE Start: 03-19-2023 End: 03-19-2023 Home visit Karyn KANGW Work Phone: [facility] Comment on above: BALLING HEAD TENDER CARE COORDINATIO N Start: 03-14-2023 End: 03-14-2023 Home visit Bonnie Yuen RN Work Phone: [facility] Comment on above: SN ROUTINE Start: 03-12-2023 Telephone encounter Hallie hua APRN.CNP Work Phone: [facility] Comment on above: Orders Request Start: 03-12-2023 End: 03-12-2023 Home visit Devin Rufener PT Work Phone: [facility] Comment on above: PT EVAL Start: 03-11-2023 End: 03-11-2023 Patient encounter procedure Hallie Podlogericka FERGUSONN.SALES ORDER ADMINISTRATOR Work Phone: [facility] Comment on above: Hospital discharge f ollow-up (Primary Dx); Morbid obesity (HCC); Open wound of inguinal region, sequela; Pneumonia due to infectious organism, unspecified laterality, unspecified part of lung; Oxygen dependent; Impaired ambulation; Stress incontinence; Anxiety and depression; Failure to attend appointment with reason given Start: 03-10-2023 End: 03-10-2023 Home visit Chey Acharya RN Work Phone: [facility] Comment on above: SN ROUTINE Start: 03-08-2023 Telephone encounter Moni (Meera) [facility] Comment on above: Home Care Start: 03-07-2023 End: 03-07-2023 Home visit Karyn ALBARADO Work Phone: [facility] Comment on above: BALLING HEAD TENDER CARE COORDINATIO N SN SOC Start: 03-06-2023 Telephone encounter Malka Mas LP N [facility] Comment on above: Home Care (Home care change of insurance) Start: 03-05-2023 Telephone encounter Opal nicole Work Phone: [facility] Comment on above: Home Care (Confirmat ion Call ) Patient Update Start: 03-05-2023 Dr. Tino Oreilly Work Phone: [facility] Start: 03-05-2023 End: 03-05-2023 Home visit Irina Martínez RN Work Phone: [facility] Comment on above: SN NO ADMIT Start: 03-05-2023 Dr. Tino Oreilly Work Phone: [facility] Start: 03-04-2023 End: 03-04-2023 Home visit Karyn ALBARADO Work Phone: [facility] Comment on above: [facility] CARE COORDINATIO N Start: 03-04-2023 Dr. Tino Oreilly Work Phone: [facility] Start: 03-04-2023 Dr. Tino Oreilly Work Phone: [facility] Start: 03-03-2023 End: 03-03-2023 Home visit Bonnie Yuen RN Work Phone: [facility] Comment on above: SN AGENCY DC WO VISI T Start: 03-03-2023 Dr. Tino Oreilly Work Phone: [facility] Start: 03-03-2023 Dr. Tino Oreilly Work Phone: [facility] Start: 03-02-2023 Dr. Tino Oreilly Work Phone: [facility] Start: 03-02-2023 End: 03-05-2023 Evaluation and management of inpatient Dr. Tino Oreilly Work Phone: [facility] Work Phone: Start: 03-02-2023 End: 03-05-2023 Dr. Tino Oreilly Work Phone: [facility]-Intensive Care Unit Start: 02-27-2023 End: 02-27-2023 Home visit Bonnie Yuen RN Work Phone: [facility] Comment on above: SN ROUTINE Start: 02-26-2023 End: 02-26-2023 Home visit Karyn KANGW Work Phone: [facility] Comment on above: BALLING HEAD TENDER CARE COORDINATIO N Start: 02-26-2023 Telephone encounter Bharat Price RN Work Phone: [facility] Comment on above: Home Care (Request f or home health aide referral.) Start: 02-25-2023 End: 02-25-2023 Home visit Karyn Vernon DANCE STUDIO MANAGER Work Phone: [facility] Comment on above: BALLING HEAD TENDER CARE COORDINATIO N Start: 02-24-2023 Telephone encounter Tino Oreilly MD Work Phone: [facility] Comment on above: Patient Update Results Start: 02-23-2023 End: 02-23-2023 Home visit Zahra Jackson RN Work Phone: [facility] Comment on above: SN SOC Start: 02-21-2023 ambulatory Annie Borges [facility] Work Phone: [facility] Start: 02-21-2023 Telephone encounter Tino Oreilly MD Work Phone: [facility] Comment on above: Fax last Office Vist Notes Transition Of Care ( TCM Pharmacy-Hospital discharge 02/20/23) Transition Of Care ( TCM Initial [facility] Discharge 02/20/23/) Start: 02-20-2023 Telephone encounter Geeta Munguia LP N [facility] Comment on above: Home Care (MD to roxy norton) Start: 02-19-2023 Telephone encounter Tino Oreilly MD Work Phone: [facility] Comment on above: Results Orders Start: 02-19-2023 End: 02-20-2023 Evaluation and management of inpatient PANFILO OREILLY Facility:[facility] Start: 02-18-2023 End: 02-18-2023 Emergency department patient visit Dr. Tino Oreilly Work Phone: [facility]-Emergency Department Start: 02-18-2023 End: 02-18-2023 Dr. Tino Oreilly Work Phone: [facility]-Emergency Department Start: 02-18-2023 End: 02-19-2023 Patient encounter procedure Panfilo Oreilly MD Work Phone: [facility] Comment on above: Abscess of groin, le ft (Primary Dx); Non-healing open wound of left groin, initial encounter; Necrotizing soft tissue infection; Cellulitis of skin; Type 2 diabetes mellitus with diabetic polyneuropathy, with long-term current use of insulin (HCC) Start: 02-07-2023 Telephone encounter Tino Oreilly MD Work Phone: [facility] Comment on above: Stage II pressure so re Start: 02-04-2023 Telephone encounter Tino Oreilly MD Work Phone: [facility] Comment on above: [facility] PT Order Request Start: 02-03-2023 Refill Panfilo Oreilly MD Work Phone: [facility] Comment on above: Refill Request Appointment Start: 01-30-2023 Telephone encounter Tino Oreilly MD Work Phone: [facility] Comment on above: Appointment Start: 01-28-2023 ambulatory Raquel Payne RN IN [facility] Start: 01-28-2023 Follow-up encounter Raquel ortega RN Experienced Truck Driver Management Comment on above: Transition Of Care ( TCM follow up/) Start: 01-21-2023 Telephone encounter Tino Oreilly MD Work Phone: [facility] Comment on above: Mcc Start: 01-20-2023 Telephone encounter Brandi Fernando MD Work Phone: [facility] Comment on above: Refill Request Start: 01-17-2023 Patient Outreach Brissa Martinezericka white [facility] Work Phone: Pharmacy Comment on above: Transition Of Care ( TCM Pharmacy-Hospital discharge 01/16/23/) Start: 01-15-2023 Telephone encounter Tino Oreilly MD Work Phone: [facility] Comment on above: Patient Update Start: 01-14-2023 ambulatory Mimi Crowley RN [facility] Start: 01-14-2023 Follow-up encounter Mimi Crowley RN Experienced Truck Driver Management Comment on above: Transition Of Care ( TCM follow-up readmitted to hospital) Start: 01-14-2023 Telephone encounter [facility] Comment on above: Appointment Start: 01-13-2023 End: 01-16-2023 Evaluation and management of inpatient ZACKERY LEBLANC Facility:[facility] Start: 01-13-2023 End: 01-13-2023 ambulatory PANFILO OREILLY Facility:[facility] Start: 01-12-2023 End: 01-13-2023 Emergency department patient visit [facility]illy [facility] Start: 01-12-2023 End: 01-13-2023 Dr. Tino Oreilly Work Phone[facility] Start: 01-12-2023 End: 01-13-2023 Emergency department patient visit PANFILO OREILLY Facility:[facility] Start: 01-06-2023 Orders Only Panfilo heath MD Work Phone: [facility] Comment on above: Necrotizing soft tis jung infection Medication Request Patient Update Start: 01-03-2023 Refill Panfilo Oreilly MD Work Phone: [facility] Comment on above: Refill Request Start: 01-02-2023 Patient Outreach Brissa white [facility] Work Phone: Pharmacy Comment on above: Transition Of Care ( TCM Pharmacy-Hospital discharge 01/01/23/) Transition Of Care ( TCM initial outreach-dc'd from [facility] 01/01/23) Missed Appointment ( Pharmacy visit reschedule) Start: 12-31-2022 Refill Panfilo Oreilly MD Work Phone: [facility] Comment on above: Refill Request Start: 12-27-2022 Refill Anabella andujar APRN.SALES ORDER ADMINISTRATOR Work Phone: [facility] Comment on above: Refill Request Start: 12-26-2022 Telephone encounter Tino [facility]illy MD [facility] Comment on above: Patient Update Start: 12-25-2022 ambulatory Jersey AngelSALES ORDER ADMINISTRATOR Work Phone: Critical Care Start: 12-25-2022 End: 01-01-2023 Evaluation and management of inpatient PANFILO OREILLY Facility:[facility] Start: 12-24-2022 End: 12-25-2022 Emergency department patient visit Dr. Tino Oreilly Work Phone: [facility]Emergency Department Start: 12-24-2022 End: 12-25-2022 Dr. Tino Oreilly Work Phone: [facility]-Emergency Department Start: 12-24-2022 Telephone encounter Tino Oreilly MD Work Phone: [facility] Comment on above: Patient Update Start: 12-20-2022 Non-patient / Non-visit Dr. Moe Oreilly Work Phone: [facility] Start: 12-20-2022 Dr. Tino Oreilly Work Phone: [facility] Start: 12-19-2022 Non-patient / Non-visit Dr. Moe Oreilly Work Phone: [facility] Start: 12-19-2022 Dr. Tino Oreilly Work Phone: [facility] Start: 12-18-2022 Non-patient / Non-visit Dr. Moe Oreilly Work Phone: [facility] Start: 12-18-2022 End: 12-20-2022 Evaluation and management of inpatient Dr. Tino Oreilly [facility] Start: 12-18-2022 End: 12-20-2022 Dr. Tino Oreilly Work Phone[facility] Start: 12-12-2022 Refill Panfilo Oreilly MD Work Phone: [facility] Comment on above: Refill Request Medication Problem Start: 12-11-2022 End: 12-11-2022 ambulatory PANFILO OREILLY Facility:[facility] Start: 12-09-2022 End: 12-09-2022 Emergency department patient visit Dr. Tino Oreilly Work Phone: [facility]Emergency Department Start: 12-09-2022 End: 12-09-2022 Dr. Tino Oreilly Work Phone: [facility]-Emergency Department Start: 12-05-2022 Telephone encounter Robert Pritchett pedro [facility] Work Phone: [facility] Comment on above: Missed Appointment Start: 11-27-2022 Refill Panfilo Oreilly MD Work Phone: [facility] Comment on above: Refill Request Start: 11-11-2022 Telephone encounter Tino Oreilly MD Work Phone: [facility] Comment on above: Results Start: 11-08-2022 End: 11-08-2022 Patient encounter procedure Panfilo Oreilly MD Work Phone: [facility] Comment on above: Strep pharyngitis (P rimary Dx); Reactive airway disease with acute exacerbation, unspecified asthma severity, unspecified whether persistent; Tremor; LOGAN treated with BiPAP; Morbid obesity ([facility]); Type 2 diabetes mellitus with diabetic polyneuropathy, with long-term current use of insulin ([facility] [facility] Episodic lightheadedness; Dehydration Start: 11-06-2022 End: [...] Telephone encounter Tino Oreilly MD Work Phone: [facility] Comment on above: Orders Start: 11-01-2022 End: 11-01-2022 Emergency department patient visit Dr. Tino Oreilly Work Phone: [facility]-Emergency Department Start: 10-30-2022 End: 10-30-2022 [facility] Comment on above: Type 2 diabetes monse itus with diabetic polyneuropathy, with long-term current use of insulin (HCC) (Primary Dx); History of tobacco use Start: 10-30-2022 End: 10-30-2022 Telemedicine consultation with patient Robert Sanchez [facility] Work Phone: [facility] Start: 10-22-2022 Telephone encounter Tino Oreilly MD Work Phone: [facility] Comment on above: Patient Update Start: 10-21-2022 Telephone encounter Tino Oreilly MD Work Phone: [facility] Comment on above: Results (No answer a nd VM not set up. FotoSwipe message sent to request patient call in for results on Lab and xray.) Start: 10-18-2022 Telephone encounter Tino Oreilly MD Work Phone: [facility] Comment on above: Prescription Clarifi cation Start: 10-18-2022 End: 10-18-[address] Tino Oreilly Work Phone: [facility] Work Phone: Start: 10-18-2022 End: 10-18-[address] Tino Oreilly Work Phone: [facility]-Laboratory, Specimen Start: 10-18-2022 End: 10-18-2022 Subsequent hospital visit by physician [facility] Work Phone: Radiology Comment on above: Acute diastolic CHF (congestive heart failure) (HCC) [I50.31] Start: 10-18-2022 End: 10-18-2022 Patient encounter procedure Panfilo Oreilly MD Work Phone: [facility] Comment on above: Acute diastolic CHF (congestive heart failure) (HCC) (Primary Dx); COPD with exacerbation (HCC); Bacterial pneumonia; Hypoxia; LOGAN treated with BiPAP; Bilateral lower extremity edema; Type 2 diabetes mellitus with diabetic polyneuropathy, with long-term current use of insulin (HCC); Other chest pain; Tremor; Tobacco use Start: 10-04-2022 Refill Panfilo Oreilly MD Work Phone: [facility] Comment on above: Refill Request Start: 09-25-[address] Endy Orelily Work Phone: [facility]-Patient Link Start: 09-24-2022 Non-patient / Non-visit Dr. Moe Oreilly Work Phone: [facility] Start: 09-23-2022 Non-patient / Non-visit Dr. Moe Oreilly Work Phone: [facility] Start: 09-22-2022 Non-patient / Non-visit Dr. Moe Oreilly Work Phone: [facility] Start: 09-22-2022 End: 09-24-2022 Evaluation and management of inpatient [facility]-Progressive Care Unit Start: 09-09-2022 Telephone encounter Tino Oreilly MD Work Phone: Internal Medicine [place] Comment on above: Medication Problem Start: 08-27-2022 Refill Panfilo Oreilly MD Work Phone: [facility] Comment on above: Refill Request Start: 08-01-2022 End: 08-01-2022 ambulatory Robert Sanchez [facility] Work Phone: [facility] Comment on above: Diabetes resources Type 2 diabetes monse itus with diabetic polyneuropathy, with long-term current use of insulin (HCC) (Primary Dx) Start: 08-01-2022 E-mail encounter pierre altman caregiver Robert Sanchez [facility] Work Phone: [facility] Start: 08-01-2022 End: 08-01-2022 Telemedicine consultation with patient Robert Sanchez [facility] Work Phone: [facility] Start: 07-24-2022 Refill Panfilo Oreilly MD Work Phone: [facility] Comment on above: Refill Request Start: 07-23-2022 End: 07-23-2022 Patient encounter procedure Berenice Bauman MD Work Phone: General Surgery Comment on above: Screening for colon cancer (Primary Dx); Chest pain, unspecified type; Morbid obesity (HCC) Start: 07-11-2022 Telephone encounter Robert ortega [facility] Work Phone: [facility] Comment on above: Appointment Start: 07-09-2022 Telephone encounter Tino Oreilly MD Work Phone: [facility] Comment on above: Medication Problem ( Patient requesting all RX's for medications and diabetic supplies be sent to [facility] in [place].) Start: 07-09-2022 End: 07-09-2022 Subsequent hospital visit by physician [facility] Work Phone: Radiology Comment on above: ov Start: 07-05-2022 Refill Hallie Martinez APRN.CNP Work Phone: [facility] Comment on above: Refill Request; Refi ll Request Start: 07-03-2022 Telephone encounter Tino Oreilly MD Work Phone: [facility] Comment on above: Forms (DM Supplies ) Start: 06-28-2022 Telephone encounter Tino Oreilly MD Work Phone: [facility] Comment on above: Appointment (patient past due for follow up- no show on 06/18/22) Start: 2022 Telephone encounter Robert ortega [facility] Work Phone: [facility] Comment on above: Missed Appointment Refill Request Start: 06-13-2022 Telephone encounter Robert ortega [facility] Work Phone: [facility] Comment on above: Missed Appointment Erroneous encounter- disregard Start: 06-05-2022 Refill Panfilo Oreilly MD Work Phone: [facility] Comment on above: Refill Request Start: 05-29-2022 ambulatory Panfilo Oreilly MD Work Phone: Internal Medicine [facility] Start: 05-02-2022 End: 05-02-2022 ambulatory Robert Sanchez [facility] Work Phone: [facility] Comment on above: Type 2 diabetes monse itus with diabetic polyneuropathy, with long-term current use of insulin (HCC) (Primary Dx) Start: 05-02-2022 End: 05-02-2022 Telemedicine consultation with patient Robert Sanchez [facility] Work Phone: [facility] Start: 05-01-2022 Refill Panfilo Oreilly MD Work Phone: [facility] Comment on above: Refill Request Start: 04-09-2022 Telephone encounter Tino Oreilly MD Work Phone: [facility] Comment on above: Patient Update Start: 04-03-2022 Telephone encounter Robert ortega [facility] Work Phone: [facility] Comment on above: Diabetes Start: 03-31-2022 End: 03-31-2022 Emergency department patient visit Dr. Tino [facility]reilly [facility] Start: 03-29-2022 Telephone encounter Robert ortega [facility] Work Phone: [facility] Comment on above: Medication Problem Start: 03-28-2022 Telephone encounter Tino Oreilly MD Work Phone: [facility] Comment on above: Patient Update; Medi cation Request Start: 03-28-2022 End: 03-28-2022 ambulatory Robert Sanchez [facility] Work Phone: [facility] Comment on above: Type 2 diabetes monse itus with diabetic polyneuropathy, with long-term current use of insulin (HCC) (Primary Dx) Start: 03-28-2022 End: 03-28-2022 Telemedicine consultation with patient Robert Sanchez [facility] Work Phone: [facility] Start: 03-20-2022 Telephone encounter Hallie hua APRN.SALES ORDER ADMINISTRATOR Work Phone: [facility] Comment on above: Results Start: 03-19-2022 End: 03-19-2022 Patient encounter procedure Hallie Martinez APRN.SALES ORDER ADMINISTRATOR Work Phone: [facility] Comment on above: Type 2 diabetes monse itus with diabetic polyneuropathy, with long-term current use of insulin ([facility]) (Primary Dx); Dysuria; LOGAN (obstructive sleep apnea); Essential hypertension; Chronic respiratory failure with hypoxia ([facility]); Hyperlipidemia, unspecified hyperlipidemia type Start: 03-05-2022 Telephone encounter Tino Oreilly MD Work Phone: [facility] Comment on above: insurance requests c hange insulin Start: 03-01-2022 Non-patient / Non-visit Dr. Moe Oreilly Work Phone: [facility] Start: 03-01-2022 End: 03-01-[address] Tino Oreilly Work Phone: [facility]-Pulmonary Services/Neurology Start: 02-07-2022 End: 02-07-[address] T[facility]reilly [facility] Start: 01-29-2022 Telephone encounter Tino Oreilly MD Work Phone: [facility] Comment on above: Patient Request Start: 01-25-2022 Telephone encounter Hallie hua APRN.SALES ORDER ADMINISTRATOR Work Phone: [facility] Comment on above: medication instructi ons Patient Request Medication Question Start: 01-23-2022 Telephone encounter Hallie hua APRN.SALES ORDER ADMINISTRATOR Work Phone: [facility] Comment on above: Orders Start: 01-17-2022 Non-patient / Non-visit Dr. Moe Oreilly Work Phone: [facility] Start: 01-16-2022 Non-patient / Non-visit Dr. Moe Oreilly Work Phone: [facility] Start: 01-15-2022 Non-patient / Non-visit Dr. Moe Oreilly Work Phone: [facility] Start: 01-15-2022 End: 01-18-2022 Evaluation and management of inpatient Dr. Tino Oreilly Work Phone: [facility] Start: 01-14-2022 Refill Panfilo Oreilly MD Work Phone: [facility] Comment on above: Refill Request (SEE RX NOTES) Start: 08-01-2021 End: 08-01-2021 Subsequent hospital visit by physician [facility] Work Phone: Radiology Comment on above: Chronic respiratory failure with hypoxia (HCC) [J96.11] Start: 06-19-2021 Telephone encounter Tino Oreilly MD Work Phone: [facility] Comment on above: Insurance Authorizat ion ([employer]) Procedures Date Procedure Procedure Detail Performing Clinician Start: 08-19-2025 Estimated creatinine clearance Delmy Solorzano MD Work Phone: Start: 08-18-2025 Serum inorganic phos phate measurement Delmy Solorzano MD Work Phone: Start: 08-17-2025 Radiologic examinati on foot 2 views Delmy Solorzano MD Work Phone: Start: 08-16-2025 Estimated creatinine clearance Delmy Sloorzano MD Work Phone: Start: 08-16-2025 X-ray of [...] Comment: Speci men Type: BLOOD SPECIMENOrdering Facility: [facility] Address: [address] [place] [address] [place] [address] Performed By: #### T SCR ####[facility] BLOOD BANKIA [id number] [place] [address] [facility] Start: 12-24-2022 CT of pelvis with contrast [...] et rgnt auto w/o microscopy Hallie Podlogar SHOOK MACHINE OPERATOR.SALES ORDER ADMINISTRATOR Work Phone: Start: 01-17-2022 Bacteria identified in [...] MD Work Phone: Start: 10-09-2017 Mammography Tino Oerilly MD Work Phone: Anaerobic microbial culture Dr. [...] (3 - PPSV23 if available, else PCV20) [facility] Start: 2042 PNEUMOCOCCAL (3 - PP SV23 or PCV20) PNEUMOCOCCAL (3 - PPSV23 or PCV20) [facility] Start: 2042 Pneumococcal vaccination Pneum ococcal Vaccine (3 of 3 - PPSV23 or PCV20) [facility] Start: 07-01-2027 Urine microalbumin profile [facility] Start: 08-19-2025 Patient discharge [facility] Start: 08-19-2025 Consultation [facility] Start: 08-18-2025 [facility] Start: 08-17-2025 [facility] Start: 08-17-2025 Care regimes management [facility] Start: 08-17-2025 Notification of physician [facility] Start: 08-17-2025 [facility] Start: 08-17-2025 Referral to graduation coach [facility] Start: 08-16-2025 Contact precautions [facility] Start: 08-16-2025 Following clinical pathway protocol [facility] Start: 08-16-2025 Application of elast ic bandage [facility] Start: 08-16-2025 Assessment of risk o f venous thromboembolism [facility] Start: 08-16-2025 Care regimes management [facility] Start: 08-16-2025 Consultation for treatment [facility] Start: 08-16-2025 Continuous pulse oximetry [facility] Start: 08-16-2025 Elevation of affecte d extremity [facility] Start: 08-16-2025 Fall prevention [facility] Start: 08-16-2025 Inhalation therapy procedure [facility] Start: 08-16-2025 Insertion of cathete r into peripheral vein [facility] Start: 08-16-2025 Introduction of urin shaina catheter [facility] Start: 08-16-2025 Measuring intake and output [facility] Start: 08-16-2025 Notification of physician [facility] Start: 08-16-2025 Oxygen therapy [facility] Start: 08-16-2025 Patient education [facility] Start: 08-16-2025 Patient referral to dietitian [facility] Start: 08-16-2025 Providing care accor ding to standard [facility] Start: 08-16-2025 Provision of activit y privileges [facility] Start: 08-16-2025 Referral for physica l therapy [facility] Start: 08-16-2025 Referral to occupati onal therapist [facility] Start: 08-16-2025 Referral to service [facility] Start: 08-16-2025 Tobacco use cessatio n education [facility] Start: 08-16-2025 Wound care [facility] Start: 08-16-2025 End: 08-16-2025 [facility] Start: 08-16-2025 Dual pressure sponta neous ventilation support [facility] Start: 08-16-2025 Verification routine [facility] Start: 08-16-2025 Admission procedure [facility] Start: 08-16-2025 Hospital admission, emergency, from emergency room, medical nature [facility] Start: 08-16-2025 [facility] Start: 08-16-2025 Bacterial nucleic ac id assay [facility] Start: 08-16-2025 End: 08-16-2025 [facility] Start: 08-16-2025 Bacteria identified in Blood by Culture Blood Culture [facility] Start: 08-16-2025 Microscopic observat ion [Identifier] in Unspecified specimen by Gram stain [facility] Start: 08-16-2025 Skin and Soft Tissue MRSA/MSSA (PCR Skin and Soft Tissue MRSA/MSSA (PCR [facility] Start: 08-16-2025 Wound Culture Wound Culture [facility] Start: 08-16-2025 Patient referral to dietitian [facility] Start: 08-16-2025 [facility] Start: 08-01-2024 Covid-19 Vaccine ( season) Covid-19 Vaccine ( season) [facility] Start: 08-01-2024 Influenza vaccination Influenza Vacc ine (#1) [facility] Start: 06-24-2024 ANNUAL PCP TEAM FLIGHT COMMUNICATIONS OPERATOR SHAY DISEASE VISIT ANNUAL PCP TEAM CHRONIC DISEASE VISIT [facility] Start: 06-24-2024 BP CONTROLLED (<130/80) BP CONTROLLE D (<130/80) [facility] Start: 05-02-2024 BP CONTROLLED (<130/80) BP CONTROLLE D (<130/80) [facility] Start: 04-28-2024 BP CONTROLLED (<130/80) BP CONTROLLE D (<130/80) [facility] Start: 04-02-2024 BP CONTROLLED (<130/80) BP CONTROLLE D (<130/80) [facility] Start: 03-28-2024 [facility] Start: 03-12-2024 BP CONTROLLED (<130/80) BP CONTROLLE D (<130/80) [facility] Start: 03-11-2024 ANNUAL PCP TEAM FLIGHT COMMUNICATIONS OPERATOR SHAY DISEASE VISIT ANNUAL PCP TEAM CHRONIC DISEASE VISIT [facility] Start: 03-10-2024 BP CONTROLLED (<130/80) BP CONTROLLE D (<130/80) [facility] Start: 02-28-2024 BP CONTROLLED (<130/80) BP CONTROLLE D (<130/80) [facility] Start: 02-19-2024 ANNUAL PCP TEAM FLIGHT COMMUNICATIONS OPERATOR SHAY DISEASE VISIT ANNUAL PCP TEAM CHRONIC DISEASE VISIT [facility] Start: 02-19-2024 BP CONTROLLED (<130/80) BP CONTROLLE D (<130/80) [facility] Start: 02-19-2024 Hepatitis B surface antibody level LDL CHOLESTEROL [facility] Start: 01-15-2024 [facility] Start: 01-13-2024 BP CONTROLLED (<130/80) BP CONTROLLE D (<130/80) [facility] Start: 12-25-2023 3 comp foot exam completed DIABETIC FOOT EXAM [facility] Start: 12-25-2023 Diabetic foot examination Diabetic F oot Exam [facility] Start: 12-01-2023 Depression Assessment Depression Ass essment [facility] Start: 11-08-2023 ANNUAL PCP TEAM FLIGHT COMMUNICATIONS OPERATOR SHAY DISEASE VISIT ANNUAL PCP TEAM CHRONIC DISEASE VISIT [facility] Start: 11-08-2023 BP CONTROLLED (<130/80) BP CONTROLLE D (<130/80) [facility] Start: 10-18-2023 ANNUAL PCP TEAM FLIGHT COMMUNICATIONS OPERATOR SHAY DISEASE VISIT ANNUAL PCP TEAM CHRONIC DISEASE VISIT [facility] Start: 10-18-2023 BP CONTROLLED (<130/80) BP CONTROLLE D (<130/80) [facility] Start: 09-25-2023 Vitamin B12 measurement [facility] Start: 09-24-2023 Hemoglobin A1c measurement HbA1C [facility] Start: 09-24-2023 Hemoglobin A1c/Hemoglobin.total in Blood HBA1C [facility] Start: 09-01-2023 Hemoglobin A1c/Hemoglobin.total in Blood HBA1C [facility] Start: 08-01-2023 Covid-19 Vaccine () Covid-19 Vaccine () [facility] Start: 08-01-2023 Influenza vaccination C [facility] Start: 07-15-2023 Patient discharge [facility] Start: 07-14-2023 Oxygen therapy [facility] Start: 07-14-2023 Ambulation without limitation [facility] Start: 07-14-2023 Assessment of risk o f venous thromboembolism [facility] Start: 07-14-2023 Care regimes management [facility] Start: 07-14-2023 Fluid restriction [facility] Start: 07-14-2023 Insertion of cathete r into peripheral vein [facility] Start: 07-14-2023 Measuring intake and output [facility] Start: 07-14-2023 Notification of physician [facility] Start: 07-14-2023 Patient referral to dietitian [facility] Start: 07-14-2023 Providing care accor ding to standard [facility] Start: 07-14-2023 [facility] Start: 07-14-2023 Following clinical pathway protocol [facility] Start: 07-14-2023 Admission procedure [facility] Start: 07-14-2023 [facility] Start: 07-14-2023 Patient referral to dietitian [facility] Start: 07-09-2023 3 comp foot exam completed DIABETIC FOOT EXAM [facility] Start: 07-09-2023 ANNUAL PCP TEAM FLIGHT COMMUNICATIONS OPERATOR SHAY DISEASE VISIT ANNUAL PCP TEAM CHRONIC DISEASE VISIT [facility] Start: 07-09-2023 Hepatitis B screening URINE ALBUMIN:CREATININE RATIO [facility] Start: 05-21-2023 Hemoglobin A1c/Hemoglobin.total in Blood HBA1C [facility] Start: 04-30-2023 HPV TESTING HPV TESTING [facility] Start: 04-30-2023 PAP TESTING PAP TESTING [facility] Start: 04-30-2023 Screening for malign ant neoplasm of cervix [facility] Start: 04-25-2023 Patient discharge [facility] Start: 04-25-2023 [facility] Start: 04-24-2023 Referral to service [facility] Start: 04-24-2023 Care planning and pr oblem solving actions [facility] Start: 04-24-2023 Measuring intake and output [facility] Start: 04-24-2023 Fluid restriction [facility] Start: 04-23-2023 End: 04-24-2023 [facility] Start: 04-23-2023 Consultation for treatment [facility] Start: 04-23-2023 Following clinical pathway protocol [facility] Start: 04-23-2023 Assessment of risk o f venous thromboembolism [facility] Start: 04-23-2023 Care regimes management [facility] Start: 04-23-2023 Continuous pulse oximetry [facility] Start: 04-23-2023 Incentive spirometry [facility] Start: 04-23-2023 Inhalation therapy procedure [facility] Start: 04-23-2023 Insertion of cathete r into peripheral vein [facility] Start: 04-23-2023 Notification of physician [facility] Start: 04-23-2023 Oxygen therapy [facility] Start: 04-23-2023 Physiotherapy of chest [facility] Start: 04-23-2023 Providing care accor ding to standard [facility] Start: 04-23-2023 Provision of activit y privileges [facility] Start: 04-23-2023 Referral to service [facility] Start: 04-23-2023 Wound care [facility] Start: 04-23-2023 Dual pressure sponta neous ventilation support [facility] Start: 04-23-2023 Admission procedure [facility] Start: 04-23-2023 Consultation [facility] Start: 04-23-2023 Patient referral to dietitian [facility] Start: 04-23-2023 [facility] Start: 03-19-2023 ANNUAL PCP TEAM FLIGHT COMMUNICATIONS OPERATOR SHAY DISEASE VISIT ANNUAL PCP TEAM CHRONIC DISEASE VISIT [facility] Start: 03-11-2023 Blood chemistry [facility] Start: 03-10-2023 Blood chemistry [facility] Start: 03-09-2023 Blood chemistry [facility] Start: 03-08-2023 Blood chemistry [facility] Start: 03-07-2023 Blood chemistry [facility] Start: 03-05-2023 Patient discharge [facility] Start: 03-05-2023 Physiotherapy of chest [facility] Start: 03-04-2023 Care planning and pr oblem solving actions [facility] Start: 03-04-2023 [facility] Start: 03-03-2023 End: 03-03-2023 Referral to service [facility] Start: 03-03-2023 Patient referral to dietitian [facility] Start: 03-03-2023 [facility] Start: 03-02-2023 [facility] Start: 03-02-2023 End: 03-02-2023 [facility] Start: 03-02-2023 Following clinical pathway protocol [facility] Start: 03-02-2023 Assessment of risk o f venous thromboembolism [facility] Start: 03-02-2023 Care regimes management [facility] Start: 03-02-2023 Consultation [facility] Start: 03-02-2023 Consultation for treatment [facility] Start: 03-02-2023 Continuous pulse oximetry [facility] Start: 03-02-2023 Elevation of head of bed [facility] Start: 03-02-2023 Insertion of cathete r into peripheral vein [facility] Start: 03-02-2023 Measuring intake and output [facility] Start: 03-02-2023 Patient referral to dietitian [facility] Start: 03-02-2023 Providing care accor ding to standard [facility] Start: 03-02-2023 Referral to occupati onal therapist [facility] Start: 03-02-2023 Referral to service [facility] Start: 03-02-2023 Vital signs measurements [facility] Start: 03-02-2023 Wound care [facility] Start: 03-02-2023 Admission procedure [facility] Start: 03-02-2023 End: 03-02-2023 Blood culture [facility] Start: 03-02-2023 Dual pressure sponta neous ventilation support [facility] Start: 03-02-2023 Inhalation therapy procedure [facility] Start: 02-18-2023 Blood culture [facility] Start: 02-09-2023 Hemoglobin A1c/Hemoglobin.total in Blood HBA1C [facility] Start: 02-06-2023 Hemoglobin A1c/Hemoglobin.total in Blood HBA1C [facility] Start: 01-23-2023 3 comp foot exam completed DIABETIC FOOT EXAM [facility] Start: 01-23-2023 ANNUAL PCP TEAM FLIGHT COMMUNICATIONS OPERATOR SHAY DISEASE VISIT ANNUAL PCP TEAM CHRONIC DISEASE VISIT [facility] Start: 01-23-2023 BP CONTROLLED (<130/80) BP CONTROLLE D (<130/80) [facility] Start: 12-24-2022 End: 12-24-2022 Blood culture [facility] Start: 12-24-2022 [facility] Start: 12-20-2022 Patient discharge [facility] Start: 12-20-2022 Referral to service [facility] Start: 12-20-2022 Consultation for treatment [facility] Start: 12-19-2022 Assessment of risk o f venous thromboembolism [facility] Start: 12-19-2022 Care regimes management [facility] Start: 12-19-2022 Continuous positive airway pressure ventilation treatment [facility] Start: 12-19-2022 Inhalation therapy procedure [facility] Start: 12-19-2022 Insertion of cathete r into peripheral vein [facility] Start: 12-19-2022 Notification of physician [facility] Start: 12-19-2022 Oxygen therapy [facility] Start: 12-19-2022 Providing care accor ding to standard [facility] Start: 12-19-2022 Provision of activit y privileges [facility] Start: 12-19-2022 Referral to occupati onal therapist [facility] Start: 12-19-2022 Referral to service [facility] Start: 12-19-2022 [facility] Start: 12-19-2022 Following clinical pathway protocol [facility] Start: 12-19-2022 Patient referral to dietitian [facility] Start: 12-18-2022 Verification routine [facility] Start: 12-18-2022 Admission procedure [facility] Start: 12-12-2022 BP CONTROLLED (<130/80) BP CONTROLLE D (<130/80) [facility] Start: 12-12-2022 Hepatitis B surface antibody level LDL CHOLESTEROL [facility] Start: 12-09-2022 [facility] Start: 12-01-2022 DEPRESSION ASSESSMENT DEPRESSION ASS ESSMENT [facility] Start: 11-18-2022 End: 01-18-2023 Comprehensive metabolic 2000 panel - Serum or Plasma COMP METABOLIC PANEL Lab Routine KERRY (acute kidney injury) (HCC) Expected: 11/18/2022, Expires: 01/18/2023 [facility] Work Phone: Comment on above: Expected: 11/18/2022 , Expires: 01/18/2023 Start: 11-01-2022 [facility] Start: 10-31-2022 End: 12-31-2022 Basic metabolic 2000 panel - Serum or Plasma BASIC METABOLIC PNL Lab Routine Type 2 diabetes mellitus with diabetic polyneuropathy, with long-term current use of insulin (HCC) Expected: 10/31/2022, Expires: 12/31/2022 [facility] Work Phone: Comment on above: Expected: 10/31/2022 , Expires: 12/31/2022 Start: 10-09-2022 Hemoglobin A1c/Hemoglobin.total in Blood HBA1C [facility] Start: 09-25-2022 [facility] Work Phone: Start: 09-24-2022 Patient discharge [facility] Start: 09-23-2022 End: 09-24-2022 [facility] Start: 09-23-2022 Inhalation therapy procedure [facility] Start: 09-22-2022 Ambulation without limitation [facility] Start: 09-22-2022 Application of elast ic bandage [facility] Start: 09-22-2022 Assessment of risk o f venous thromboembolism [facility] Start: 09-22-2022 Care regimes management [facility] Start: 09-22-2022 Continuous pulse oximetry [facility] Start: 09-22-2022 Elevation of affecte d extremity [facility] Start: 09-22-2022 Elevation of head of bed [facility] Start: 09-22-2022 Fluid restriction [facility] Start: 09-22-2022 Incentive spirometry [facility] Start: 09-22-2022 Insertion of cathete r into peripheral vein [facility] Start: 09-22-2022 Measuring intake and output [facility] Start: 09-22-2022 Notification of physician [facility] Start: 09-22-2022 Oxygen therapy [facility] Start: 09-22-2022 Patient education [facility] Start: 09-22-2022 Physiotherapy of chest [facility] Start: 09-22-2022 Providing care accor ding to standard [facility] Start: 09-22-2022 Referral to occupati onal therapist [facility] Start: 09-22-2022 Referral to service [facility] Start: 09-22-2022 End: 09-22-2022 [facility] Start: 09-22-2022 Dual pressure sponta neous ventilation support [facility] Start: 09-22-2022 Verification routine [facility] Work Phone: Start: 09-22-2022 End: 09-22-2022 Following clinical pathway protocol [facility] Start: 09-22-2022 Troponin I measurement [facility] Work Phone: Start: 09-22-2022 Admission procedure [facility] Start: 09-22-2022 [facility] Work Phone: Start: 09-22-2022 End: 09-22-2022 Blood culture [facility] Work Phone: Start: 09-22-2022 End: 09-23-2022 [facility] Start: 08-01-2022 Hepatitis B screening URINE ALBUMIN:CREATININE RATIO [facility] Start: 08-01-2022 Influenza vaccination INFLUENZA (#1) [facility] Start: 2022 COLOGUARD (FIT-DNA) COLOGUARD (FIT-D NA) [facility] Start: 2022 Colonoscopy COLONOSCOPY [facility] Start: 2022 COLORECTAL CANCER SCREENING COLORECTAL CANCER SCREENING [facility] Start: [address] [facility] Start: 2022 FECAL OCCULT BLOOD FECAL OCCULT BLOO D [facility] Start: 2022 Screening for malign ant neoplasm of colon [facility] Start: 2022 SIGMOIDOSCOPY SIGMOIDOSCOPY [facility] Start: 06-18-2022 End: 08-18-2022 Hemoglobin A1c/Hemoglobin.total in Blood [facility] Comment on above: Expected: 06/18/2022 , Expires: 08/18/2022 Start: 03-19-2022 End: 05-19-2022 Comprehensive metabolic 2000 panel - Serum or Plasma [facility] Work Phone: Comment on above: Expected: 03/19/2022 , Expires: 05/19/2022 Start: 03-19-2022 End: 05-19-2022 Hemoglobin A1c/Hemoglobin.total in Blood [facility] Work Phone: Comment on above: Expected: 03/19/2022 , Expires: 05/19/2022 Start: 03-15-2022 COVID-19 VACCINE (3 - Booster for Damir series) COVID-19 VACCINE (3 - Booster for Damir series) [facility] Start: 03-12-2022 Hemoglobin A1c/Hemoglobin.total in Blood HBA1C [facility] Start: 02-14-2022 Adult depression screening assessment DEPRESSION SCREENING [facility] Start: 12-01-2021 DEPRESSION ASSESSMENT DEPRESSION ASS ESSMENT [facility] Start: 10-09-2018 Mammography MAMMOGRAM [facility] Start: 10-09-2018 Screening for malign ant neoplasm of breast Mammogram Screening [facility] Start: 08-31-2016 TWO PNEUMOVAX 5 YEAR S APART PRIOR TO AGE 65 (#2) TWO PNEUMOVAX 5 YEARS APART PRIOR TO AGE 65 (#2) [facility] Start: 1996 HEPATITIS B (1 of 3 - Risk 3-dose series) HEPATITIS B (1 of 3 - Risk 3-dose series) [facility] Start: 1996 Hepatitis B Vaccine (1 of 3 - 19+ 3-dose series) Hepatitis B Vaccine (1 of 3 - 19+ 3-dose series) [facility] Start: 1995 Depression Screening Depression Scre ening [facility] Start: 1987 Glaucoma screening Dilated Retinal E xam [facility] Start: 1987 Hepatitis C antibody , confirmatory test [facility] Start: 1977 HEPATITIS B (1 of 3 - 3-dose series) HEPATITIS B (1 of 3 - 3-dose series) [facility] Bacteria identified in Blood by Culture Blood Culture [facility] Bacteria identified in Urine by Culture Urine Culture [facility] Work Phone: Bacteria identified in Wound by Culture ABSCESS AND WOUND CULTURE WITH GRAM STAIN Microbiology Routine Abscess of groin, left Non-healing open wound of left groin, initial encounter 02/18/2023 12:05 PM EDT [facility] Work Phone: Bilirubin measuremen t, urine [facility] Blood culture [facility] Work Phone: End: 10-18-2023 ECG COMPLETE ECG COMPLETE ECG Routine Acute diastolic CHF (congestive heart failure) (HCC) Other chest pain 1 Occurrences starting 10/18/2022 until 10/18/2023 [facility] Work Phone: Comment on above: 1 Occurrences starti ng 10/18/2022 until 10/18/2023 End: 11-08-2023 EPIL EEG ROUTINE EPIL EEG ROUTINE NEUROLOGY TACO Tremor 1 Occurrences starting 11/08/2022 until 11/08/2023 [facility] Work Phone: Comment on above: 1 Occurrences starti ng 11/08/2022 until 11/08/2023 Ferritin [Mass/volum e] in Serum or Plasma [facility] Folate [Mass/volume] in Serum or Plasma [facility] Hemoglobin [Presence ] in Urine [facility] Iron [Mass/mass] in Unspecified specimen [facility] Iron and Iron bindin g capacity panel - Serum or Plasma [facility] Iron saturation [Mas s Fraction] in Serum or Plasma [facility] Magnesium measurement [facility] End: 05-29-2024 SHERYL SCREENING SHERYL SCREENING Radiology Routine Encounter for screening mammogram for breast cancer 1 Occurrences starting 04/30/2023 until 05/29/2024 [facility] Work Phone: Comment on above: 1 Occurrences starti ng 04/30/2023 until 05/29/2024 Measurement of keton es in urine using dipstick [facility] Microbial culture, routine [facility] Microscopic urinalysis [facility] End: 11-17-2023 NM CARDIAC PERF STRESS/PHARM NM CARDIAC PERF STRESS/PHARM Radiology TACO Acute diastolic CHF (congestive heart failure) (HCC) 1 Occurrences starting 10/18/2022 until 11/17/2023 [facility] Work Phone: Comment on above: 1 Occurrences starti ng 10/18/2022 until 11/17/2023 OCCULT BLD EXAM-DIAG OCCULT BLD EXAM-DIAG Microbiology Routine Screening for colon cancer Ordered: 07/23/2022 [facility] Work Phone: Comment on above: Ordered: 07/23/2022 Patient Education [facility] Work Phone: Patient referral [facility] Work Phone: pH of Urine [facility] End: 11-06-2023 PVR ANK PRESS [facility]K [facility] Vascular Lab Routine Onychomycosis Other diabetic neurological complication associated with type 2 diabetes mellitus (HCC) Diminished pulses in lower extremity 1 Occurrences starting 11/06/2022 until 11/06/2023 [facility] Work Phone: Comment on above: 1 Occurrences starti ng 11/06/2022 until 11/06/2023 Respiratory microbia l culture Respiratory Culture [facility] Work Phone: End: 06-28-2023 Screening mammography bi 2-view breast inc cad SHERYL SCREENING Radiology Routine Encounter for screening mammogram for breast cancer 1 Occurrences starting 05/29/2022 until 06/28/2023 [facility] Work Phone: Comment on above: 1 Occurrences starti ng 05/29/2022 until 06/28/2023 Specific gravity of Urine [facility] Troponin I measurement [facility] Work Phone: UA DIP, URINE (POC) UA DIP, URIN E (POC) Lab Routine Dysuria Ordered: 03/19/2022 [facility] Work Phone: Comment on above: Ordered: 03/19/2022 Urinalysis, blood, qualitative [facility] Urine culture Urine Culture [facility] Work Phone: Urine dipstick for glucose [facility] Urine dipstick for leukocyte esterase [facility] Urine dipstick for nitrite [facility] Urine dipstick for protein [facility] Urine examination [facility] Urine microscopy: epithelial cells [facility] Urine Microscopy: wh ite cells [facility] Urobilinogen [Presen ce] in Urine [facility] Wound microscopy, cu lture and sensitivities [facility] [place] [facility] Immunizations Immunization Date Immunization Notes Care Provider [facility] 11-10-2024 influenza, seasonal, injectable, preservative free Delmy Solorzano MD Work Phone: [facility] 09-24-2022 influenza, injectabl e, quadrivalent, preservative free Dr. Tino Oreilly Work Phone: [facility] 09-24-2022 influenza, seasonal, injectable Dr. Tino Oreilly Work Phone: [facility] 09-24-2022 influenza virus vaccine, unspecified formulation Malka Mas LPN [facility] 01-18-2022 Covid (Moderna) Dr. Margaux Oreilly Work Phone: [facility] 01-16-2022 influenza, injectabl e, quadrivalent, preservative free Dr. Tino Oreilly Work Phone: [facility] 01-16-2022 influenza, seasonal, injectable Dr. Tino Oreilly Work Phone: [facility] 12-12-2021 influenza, injectabl e, quadrivalent, contains preservative Panfilo Oreilly MD Work Phone: [facility] 07-18-2021 Covid (Paul & Paul) Dr. Tino Oreilly Work Phone: [facility] 08-31-2020 influenza, injectabl e, quadrivalent, contains preservative Panfilo Oreilly MD Work Phone: [facility] 08-31-2020 pneumococcal conjuga te vaccine, 13 valent Panfilo Oreilly MD Work Phone: [facility] 11-12-2019 influenza, injectabl e, quadrivalent, contains preservative Panfilo Oreilly MD Work Phone: [facility] 12-16-2018 influenza, injectabl e, quadrivalent, preservative free Dr. Tino Oreilly Work Phone: [facility] 12-16-2018 influenza, seasonal, injectable Dr. Tino Oreilly Work Phone: [facility] 12-16-2018 influenza, seasonal, injectable, preservative free Panfilo Oreilly MD Work Phone: [facility] 09-11-2017 influenza, injectabl e, quadrivalent, preservative free Dr. Tino Oreilly Work Phone: [facility] 09-11-2017 influenza, seasonal, injectable Panfilo Oreilly MD Work Phone: [facility] 09-11-2017 influenza, seasonal, injectable, preservative free Panfilo Oreilly MD Work Phone: [facility] 07-01-2017 tetanus toxoid, redu aruna diphtheria toxoid, and acellular pertussis vaccine, adsorbed Panfilo Oreilly MD Work Phone: [facility] 12-20-[address] Tino Oreilly Work Phone: [facility] 12-20-2013 influenza, seasonal, injectable Panfilo Oreilly MD Work Phone: [facility] 12-20-2013 influenza, seasonal, injectable, preservative free Panfilo Oreilly MD Work Phone: [facility] 08-31-2011 pneumococcal polysaccharide vaccine, 23 valent Panfilo Oreilly MD Work Phone: [facility] 08-31-[address] Fela Oreilly Work Phone: [facility] Work Phone: 08-31-2011 pneumococcal vaccine , unspecified formulation Dr. Tino Oreilly Work Phone: [facility] Payers Date Payer Category Payer Unknown [id number] 2024 Self-pay [id number] 2024 Private Health Insurance [id number] 2023 Unknown [id number] 2022 Medicaid [employer] [id number] 2022-[address]22 [address] [place] [address] Medicaid [id number] 2022 Medicare [id number] 2022 Medicaid MEDICAID [facility] MEDICAID [id number] 2022-[address] [place] [address] Medicaid [id number] 2022 Medicaid [id number] 2021 Medicare MEDICARE MEDICAR E A AND B [id number] 2021-2021 [facility] [place] [address] Medicare [id number] 2021 Medicare [id number] 2016 Medicaid [id number] 2016 Unknown [id number] Medicare [id number] Medicare [id number] Private Health Insurance [facility] [id number] Unknown [id number] 462 Unknown [id number] 462 Unknown [id number]. 462 Unknown [id number]. 462 Unknown [id number]. 462 Unknown [id number]. 462 Unknown [id number]. 462 Unknown [id number]. 462 Unknown [id number]. 462 Unknown [id number]. 462 Unknown [id number]. 462 Unknown [id number]. 462 Unknown [id number]. 462 Unknown [id number]. 462 Unknown [id number]. 462 Unknown [id number] 462 Social History Date Type Detail Facility Start: 09-08-1996 End: 10-18-2022 Tobacco smoking status MNIS Smokes tobacco daily [facility] Start: 09-08-1996 End: 09-08-2017 History of tobacco use Cigarette Smoker [facility] Start: 08-25-2019 End: 11-05-2020 Cigarettes smoked current (pack per day) - Reported 1 [facility] Start: 08-25-2019 End: 07-09-2022 Tobacco use and exposure Smokeless tobacco non-user [facility] Start: 08-01-2021 End: 12-12-2021 Alcohol intake Current drinker of alcohol (finding) [facility] Start: 04-03-2017 History SDOH Alcohol Comment rarely [facility] Start: 1975 Sex Assigned At Not on file C [facility] Start: 01-06-2022 End: 10-18-2022 Exposure to SARS-CoV-2 (event) Not sure [facility] Start: 02-07-2022 End: 03-27-2024 Tobacco smoking status MNIS Unknown if ever smoked [facility] Start: 02-15-2020 None [facility] Start: 11-25-2019 With Family [facility] Start: 04-21-2020 Cigarettes [facility] Start: 1975 Sex Assigned At Female [facility] Start: 01-23-2022 End: 08-17-2025 Tobacco smoking status NHIS Ex-smoker [facility] Start: 01-23-2022 End: 07-09-2022 Tobacco Comment d/c x2 wks [facility] Start: 04-03-2017 Tobacco Comment failed patches in the past [facility] History of tobacco use Current smoker [facility] Start: 07-22-2022 End: 08-01-2022 Exposure to SARS-CoV-2 (event) Yes [facility] Start: 06-24-2021 End: 09-02-2022 Exposure to SARS-CoV-2 (event) Unable to assess [facility] Start: 10-17-2022 End: 01-15-2023 History SDOH Alcohol Frequency 1 [facility] Start: 10-17-2022 End: 11-02-2022 History SDOH Alcohol Std Drinks 0 [facility] Start: 10-17-2022 End: 01-15-2023 History SDOH Social Connections Phone 5 [facility] Start: 10-17-2022 End: 01-15-2023 History SDOH Social Connections Get Together 2 [facility] Start: 10-17-2022 End: 11-02-2022 History SDOH Social Connections Living 7 [facility] Start: 10-17-2022 End: 11-02-2022 History SDOH Physical Activity DPW 3 [facility] Start: 10-17-2022 History SDOH Financial 4 [facility] Start: 01-14-2023 End: 02-18-2023 Alcohol intake Ex-drinker (finding) [facility] Start: 11-05-2020 End: 11-02-2022 Social connection and isolation panel [facility] Do you belong to any clubs or organizations such as catholic groups, unions, fraternal or athletic groups, or school groups? No [facility] Are you now , , , , never or living with a partner? Never [facility] How often to you hav e a drink containing alcohol? Never [facility] How many standard dr inks containing alcohol do you have on a typical day? Patient does not drink [facility] Do you feel stress - tense, restless, nervous, or anxious, or unable to sleep at night because your mind is troubled all the time - these days [OSQ] Very much [facility] (I/We) worried wheth er (my/our) food would run out before (I/we) got money to buy more. Never true [facility] Work Phone: How hard is it for y ou to pay for the very basics like food, housing, medical care, and heating Not very hard [facility] (I/We) worried wheth er (my/our) food would run out before (I/we) got money to buy more. Sometimes true [facility] NEGATED: Highlighted row [facility] Medical Equipment Procedure Code Equipment Code Equipment Original Text Equipment Identifier Dates [id number], [id number], [id number], [id number], [id number], [id number], [id number], [id number], [id number] Start: 04-07-2018 End: 07-08-2023 Comment on above: [...] Assessment Result Facility 08-19-2025 Functional status Ambulates [facility] Work Phone: 07-15-2023 Functional status Ambulates [facility] Work Phone: 04-25-2023 Functional status Ambulates;Bathroom Priv ilege [facility] Work Phone: 03-05-2023 Functional status Ambulates;Venu r;Bedside Commode [facility] Work Phone: 12-20-2022 Functional status Bedrest [facility] Work Phone: 09-24-2022 Functional status Ambulates [facility] Work Phone: 01-18-2022 Functional status Chair [facility] Work Phone: Mental Status Date Assessment Result Facility 08-19-2025 Cognitive function Voice/Name [facility] Work Phone: 08-16-2025 Cognitive function Level Of Cons ciousness Awake;Alert;Appropriate;Follow s Commands [facility] Work Phone: 03-27-2024 Cognitive function Level Of Cons ciousness Awake;Alert;Appropriate [facility] Work Phone: 07-14-2023 Cognitive function Voice/Name [facility] Work Phone: 07-14-2023 Cognitive function Voice/Name [facility] Work Phone: 04-25-2023 Cognitive function Voice/Name [facility] Work Phone: 03-05-2023 Cognitive function Voice/Name [facility] Work Phone: 12-20-2022 Cognitive function Voice/Name [facility] Work Phone: 12-18-2022 Cognitive function Level Of Cons ciousness Awake;Alert;Appropriate;Follow s Commands [facility] Work Phone: 12-09-2022 Cognitive function Voice/Name [facility] Work Phone: 09-24-2022 Cognitive function Voice/Name [facility] Work Phone: 09-22-2022 Cognitive function Awake;Alert;A ppropriate;Follow s Commands [facility] Work Phone: 03-31-2022 Cognitive function Awake;Alert;Appropriat e [facility] Work Phone: 01-18-2022 Cognitive function Voice/Name [facility] Work Phone: Clinical Notes 11-06-2007 to 08-19-2025 Note Date & Type Note Facility 08-19-2025 Consult note [facility] 08-19-2025 Discharge summary Note Date/Time August 19, 2025 11:58am [facility] Medical Records Department [address] [place] [address] Discharge Summary 08/19/25 1150 MR#: [id number] Acct: [id number] Name: MACARIO WALLACE Rep #:[id number] : 1975 50 From: Jersey Pradhan MD PCP: Dr. Delmy Solorzano MD Status:ADM IN Location: [place] [address] Providers Date of Admission: 08/16/25 Primary Care Physician: Delmy Solorzano MD Consultations 08/16/25 22:51 Consult: Onc/Wound/forensic artist Routine Comment: Reason for Consult:: BL LE [...] mg PO .every /thurs #8 tabs 07/15/23 oxycodone-acetaminophen 5 mg-325 mg [...] % (Auto) 63.3, Lymph % (Auto) 25.6, [place] % (Auto) 6.0, Eos % (Auto) 3.2, [...] 80 mg tablet 80 mg PO QHS gnifosci-booz-AR-calcium-mins 1 EACH tablet 1 ea PO DAILY [...] Self Care Charges/Coding Visit Charges Inpatient E&M: 03263 Disch Hosp >30min 08/19/25 1158 <Electronically signed by Jersey Pradhan MD> Cosigner Signature (if applicable): CC: Dr. Delmy Solorzano MD; Dr. Jersey Pradhan MD~ Signed [facility] Work Phone: 1(841) 122-109309-19-2025 Consult note Author Cody Gonzalez [facility] Note Date/Time August 19, 2025 11:00am [facility] Medical Records Department [address] [place] [address] [place] [address] Consultation - Infectious Dx 08/19/25 1056 MR#: [id number] Acct: [id number] Name: MACARIO WALLACE Rep #:[id number] : 1975 50 From: Cody peralta MD PCP: Dr. Delmy Solorzano MD Status:ADM IN Location: [place] [address] Assessment & Plan Assessment/Plan (1) Skin ulcer [...] performed and neg except as noted above. [facility] Medical History Cellulitis of leg MRSA cellulitis [...] 2.5 mg/3 mL 2.5 mg inhalation Q4H MA N SOB 12/09/22 07/10/23 History (0.083 %) [...] % (Auto) 63.3, Lymph % (Auto) 25.6, [place] % (Auto) 6.0, Eos % (Auto) 3.2, [...] applicable): CC: Dr. Delmy Solorzano MD~ Signed [facility] Work Phone: 1(341) 775-166709-19-2025 Progress note Author Jersey Pradhan [facility] Note Date/Time August 19, 2025 10:14am [facility] Medical Records Department [address] [place] [address] Progress Note - Hospitalist 08/19/25 0750 MR#: [id number] Acct: [id number] Name: MACARIO WALLACE Rep #:[id number] : 1975 50 From: Jersey Pradhan MD PCP: Dr. Delmy Solorzano MD Status:ADM IN Location: [place] [address]- Reason for Visit Chief Complaint: Worsening LE [...] RDW Std Deviation 43.4, RDW Coeff of Darrino 13.2, Plt Count 277, MPV 10.0, Immature Gran % (Auto) 1.000 H, Neut % (Auto) 63.3, Lymph % (Auto) 25.6, [place] % (Auto) 6.0, Eos % (Auto) 3.2, [...] 08/19/25 at 1014 Visit Charges Inpatient E&M: 20733 Subs Hosp L2 08/19/25 1014<Electronically signed by Jersey Pradhan MD> Cosigner Signature (if applicable): cc: ~* Signed [facility] Work Phone: 1(757) 344-173009-19-[address] [facility] Medical Records Department [address] [place] [address] Discharge Summary 08/19/25 1150 MR#: [id number] Acct: [id number] Name: MACARIO WALLACE KENJI Rep #:[id number] : 1975 50 From: Jersey Pradhan MD PCP: Dr. Delmy Solorzano MD Status:ADM [facility] Providers Date of Admission: 08/16/25 Primary Care Physician: Delmy Solorzano MD Consultations 08/16/25 22:51 Consult: Onc/Wound/forensic artist Routine Comment: Reason for Consult:: BL LE [...] % (Auto) 63.3, Lymph % (Auto) 25.6, [place] % (Auto) 6.0, Eos % (Auto) 3.2, [...] 80 mg tablet 80 mg PO QHS dpuxysdc-zcoz-GJ-calcium-mins 1 EACH tablet 1 ea PO DAILY [...] Self Care Charges/Coding Visit Charges Inpatient E&M: 19800 Disch Hosp >30min 08/19/25 1158 Cosigner Signature (if applicable): CC: Dr. Delmy Solorzano MD; Dr. Jersey Pradhan MD~ Signed [facility]09-19-2025 Consult note [facility] Medical Records Department [address] [place] [address] Consultation - Infectious Dx 08/19/25 1056 MR#: [id number] Acct: [id number] Name: MACARIO WALLACE Rep #:[id number] : 1975 50 From: Cody peralta MD PCP: Dr. Delmy Solorzano MD Status:ADM IN Location: [facility] [id number]- 1 Assessment & Plan Assessment/Plan (1) Skin ulcer [...] performed and neg except as noted above. [facility] Medical History Cellulitis of leg MRSA cellulitis [...] 2.5 mg/3 mL 2.5 mg inhalation Q4H MA N SOB 12/09/22 07/10/23 History (0.083 %) [...] % (Auto) 63.3, Lymph % (Auto) 25.6, [place] % (Auto) 6.0, Eos % (Auto) 3.2, [...] applicable): CC: Dr. Delmy Solorzano MD~ Signed [facility]09-19-[address] [facility] Medical Records Department [address] [place] [address] Progress Note - Hospitalist 08/19/250 MR#: [id number] Acct: [id number] Name: MACARIO WALLACE Rep #:[id number] : 1975 50 From: Jersey Pradhan MD PCP: Dr. Delmy Solorzano MD Status:ADM IN Location: [place] [address] 1 Reason for Visit Chief Complaint: Worsening [...] % (Auto) 63.3, Lymph % (Auto) 25.6, [place] % (Auto) 6.0, Eos % (Auto) 3.2, [...] 08/19/25 at 1014 Visit Charges Inpatient E&M: 47490 Subs Hosp L2 08/19/25 1014 Cosigner Signature (if applicable): cc: ~* Signed [facility]09-19-2025 Consult note Author Ryan Avina [facility] Note Date/Time August 19, 2025 6:12am [facility] Medical Records Department [address] [place] [address] Pharmacokinetic/Renal -Consult 08/19/25 0611 MR#: [id number] Acct: [id number] Name: MACARIO WALLACE Rep #:[id number] : 1975 50 From: Ryan Hernandes od PCP: Dr. Delmy Solorzano MD Status:ADM IN Y Location: [place] [address] Consult Antibiotic Management Pharmacy has been consulted [...] Signature (if applicable): Date CC: ~ Signed [facility] Work Phone: 1([phone]) 939-682609-19-2025 Consult note [facility] Medical Records Department [address] [place] [address] Pharmacokinetic/Renal -Consult 08/19/25 06 MR#: [id number] Acct: [id number] Name: MACARIO WALLACE Rep #:[id number] : 1975 50 From: Ryan Hernandes od PCP: Dr. Delmy Solorzano MD Status:ADM IN Location: [place] [address] Consult Antibiotic Management Pharmacy has been consulted [...] Signature (if applicable): Date CC: ~ Signed [facility]09-18-2025 Consult note Author Norman Mcclendon [facility] Note Date/Time August 18, 2025 5:58pm [facility] Medical Records Department [address] [place] [address] Consultation 08/18/25 1748 MR#: [id number] Acct: [id number] Name: MACARIO WALLACE Rep #:[id number] : 1975 50 From: Norman Altman PCP: Dr. Delmy Solorzano MD Status:ADM IN Location: [place] [address] Assessment & Plan Assessment/Plan (1) Cellulitis of [...] WALLACE, is a 50 F who presents [facility] Medical History (Updated 08/18/25 @ 17:[address] Norman Mcclendon DPM) Cellulitis of leg MRSA cellulitis of [...] 2.5 mg/3 mL 2.5 mg inhalation Q4H MA N SOB 12/09/22 07/10/23 History (0.083 %) [...] wounds. no redness, no swelling, no drainage, \ left great toed with 1.5cm round neuropathic [...] % (Auto) 64.0, Lymph % (Auto) 26.4, [place]% (Auto) 5.0, Eos % (Auto) 3.2, Baso [...] applicable): CC: Dr. Delmy Solorzano MD~ Signed [facility] Work Phone: 1([phone]) 173-895409-18-[address] [facility] Medical Records Department [address] [place] [address] Consultation 08/18/25 1748 MR#: [id number] Acct: [id number] Name: MACARIO WALLACE Rep #:[id number] : 1975 50 From: Norman Altman PCP: Dr. Delmy Solorzano MD Status:ADM IN Location: [place] [address] Assessment & Plan Assessment/Plan (1) Cellulitis of [...] WALLACE, is a 50 F who presents [facility] Medical History (Updated 08/18/25 @ 17:57 by [...] 2.5 mg/3 mL 2.5 mg inhalation Q4H MA N SOB 12/09/22 07/10/23 History (0.083 %) [...] no wounds. no redness, no swelling, nodrainage, \ left great toed with 1.5cm round neuropathic [...] Neut% (Auto) 64.0, Lymph % (Auto) 26.4, [place]% (Auto) 5.0, Eos % (Auto) 3.2, Baso [...] applicable): CC: Dr. Delmy Solorzano MD~ Signed [facility]09-18-2025 [facility] Medical Records Department [address] [place] [address] Consultation 08/18/25 1748 MR#: [id number] Acct: [id number] Name: MACARIO WALLACE Rep #: [id number] : 1975 50 From: Norman Mcclendon DPM PCP: Dr. Delmy Soolrzano MD Status:ADM IN Location: [place] [address] Assessment Plan Assessment/Plan (1) Cellulitis of leg: [...] WALLACE, is a 50 F who presents [facility] Medical History (Updated 08/18/25 @ 17:57 by [...] Max U-300 SoloStar) semag (more content not included)...[facility]09-18-2025 Progress note Author Jersey Pradhan [facility] Note Date/Time August 18, 2025 9:19am [facility] Medical Records Department [address] [place] [address] Progress Note - Hospitalist 08/18/25 0738 MR#: [id number] Acct: [id number] Name: MACARIO WALLACE Rep #:[id number] : 1975 50 From: Jersey Pradhan MD PCP: Dr. Delmy Solorzano MD Status:ADM IN Location: [place] [address] Reason for Visit Chief Complaint: Worsening LE [...] H 95 Nasal Cannula 6 08/18/25 05:08/18/25 05:31 08/18/25 05:31 08/18/25 05:31 08/18/25 [...] % (Auto) 64.0, Lymph % (Auto) 26.4, [place]% (Auto) 5.0, Eos % (Auto) 3.2, Baso [...] prominent overlying the great toe. Reading Location: [place] [address] Physical Exam Narrative GENERAL: dyspneic at rest [...] 40 Minutes Charges/Coding Visit Charges Inpatient E&M: 61832 Subs Hosp L2 08/18/25 0919 <Electronically signed by Jersey Pradhan MD> Cosigner Signature (if applicable): CC: ~ Signed [facility] Work Phone: 1(717) 453-982609-18-[address] [facility] Medical Records Department [address] [place] [address] Progress Note - Hospitalist 08/18/25 0738 MR#: [id number] Acct: [id number] Name: MACARIO WALLACE Rep #:[id number] : 1975 50 From: Jersey Pradhan MD PCP: Dr. Delmy Solorzano MD Status:ADM IN Location: [place] [address]- 1 Reason for Visit Chief Complaint: Worsening [...] Nasal Cannula 6 08/18/25 05:08/18/25 05:08/18/25 05:08/18/25 05:31 08/18/25 05:31 08/18/25 05:31 [...] Neut% (Auto) 64.0, Lymph % (Auto) 26.4, [place]% (Auto) 5.0, Eos % (Auto) 3.2, Baso [...] prominent overlying the great toe. Reading Location: [place] [address] Physical Exam Narrative GENERAL: dyspneic at rest [...] 40 Minutes Charges/Coding Visit Charges Inpatient E&M: 66364 Subs Hosp L2 08/18/25 0919 Cosigner Signature (if applicable): CC: ~ Signed [facility]09-18-2025 Consult note Author Ryan Avina [facility] Note Date/Time August 18, 2025 6:17am [facility] Medical Records Department [address] [place] [address] Pharmacokinetic/Renal -Consult 08/18/25 0616 MR#: [id number] Acct: [id number] Name: MACARIO WALLACE Rep #:[id number] : 1975 50 From: Ryan Hernandes od PCP: Dr. Delmy Solorzano MD Status:ADM IN Y Location: [place] [address] Consult Antibiotic Management Pharmacy has been consulted [...] [date and time ordered]: 08/19 @ 0500 08/18/2517 <Electronically signed by Ryan toledo> Date _ Ryan Avina Cosigner Signature (if applicable): Date CC: ~ Signed [facility] Work Phone: 1([phone]) 778-902609-18-2025 Consult note [facility] Medical Records Department [address] [place] [address] Pharmacokinetic/Renal -Consult 08/18/25615 MR#: [id number] Acct: [id number] Name: MACARIO WALLACE Rep #:[id number] : 1975 50 From: Ryan Hernandes od PCP: Dr. Delmy Solorzano MD Status:ADM IN Location: [place] [address] Consult Antibiotic Management Pharmacy has been consulted [...] Signature (if applicable): Date CC: ~ Signed [facility]09-17-2025 Consult note Author Ryan Avina [facility] Note Date/Time August 17, 2025 9:32pm [facility] Medical Records Department [address] [facility] [place] [address] Pharmacokinetic/Renal -Consult 08/17/25 2131 MR#: [id number] Acct: [id number] Name: MACARIO WALLACE Rep #:[id number] : 1975 50 From: Ryan Hernandes od PCP: Dr. Delmy Solorzano MD Status:ADM IN Y Location: [place] [address] Consult Antibiotic Management Pharmacy has been consulted [...] [date and time ordered]: 08/18 @ 0400 08/17/252131 <Electronically signed by Ryan toledo> Date _ Ryan Avina Cosigner Signature (if applicable): Date CC: ~ Signed [facility] Work Phone: [phone] Consult note [facility] Medical Records Department [address] [place] [address] Pharmacokinetic/Renal -Consult 08/17/25 2131 MR#: [id number] Acct: [id number] Name: MACARIO WALLACE Rep #:[id number] : 1975 50 From: Ryan Hernandes od PCP: Dr. Delmy Solorzano MD Status:ADM IN Location: [place] [address] Consult Antibiotic Management Pharmacy has been consulted [...] 0400 08/17/25 2132 lood> Date _ Ryan Becerrilignyunior Signature (if applicable): Date CC: ~ Signed [facility]09-17-2025 Radiology Diagnostic study note [facility] Imaging Services [address] [place], [place] [address] Foot 2 Views MR#: [id number] Acct: [id number] Name: MACARIO WALLACE Rep #: [id number] : 1975 F 50 From: Jatin Gan MD PCP: Dr. Delmy Solorzano MD Status: ADM IN Study:Foot 2 Views Date of Exam: 5 Exam# [id number] Ordering Dr: Steve Pradhan MD PROCEDURE: FOOT [...] prominent overlying the great toe. [facility] CC: Dr. Delmy Solorzano MD; Dr. Jersey Pradhan MD ~ 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: Signed [facility]09-17-2025 Progress note Author Jersey Pradhan [facility] Note Date/Time August 17, 2025 8:22am [facility] Medical Records Department [address] [place] [address] Progress Note - Hospitalist 08/17/25 0659 MR#: [id number] Acct: [id number] Name: MACARIO WALLACE Rep #:[id number] : 1975 50 From: Jersey Pradhan MD PCP: Dr. Delmy Solorzano MD Status:ADM IN Location: [place] [address] Reason for Visit Chief Complaint: Worsening LE [...] (Auto) 72.2 H, Lymph % (Auto) 20.4, [place] % (Auto) 4.1, Eos % (Auto) 2.0, [...] Bilirubin 0.23, AST 24, ALT 23, Alkaline [id number], Troponin T High Sens 37 H, NT [...] % (Auto) 69.6, Lymph % (Auto) 21.7, [place] % (Auto) 4.7, Eos % (Auto) 2.5, [...] airspace consolidation or pleural effusions. Reading Location: [facility] Physical Exam Narrative GENERAL: dyspneic at [...] 55 Minutes Charges/Coding Visit Charges Inpatient E&M: 60319 Subs Hosp L3 08/17/25 0822 <Electronically signed by Jersey Pradhan MD> Cosigner Signature (if applicable): CC: ~ Signed [facility] Work Phone: [phone]) 982-835709-17-[address] [facility] Medical Records Department [address] [place] [address] Progress Note - Hospitalist 08/17/25 0659 MR#: [id number] Acct: [id number] Name: MACARIO WALLACE Rep #:[id number] : 1975 50 From: Jersey Pradhan MD PCP: Dr. Delmy Solorzano MD Status:ADM IN Location: [place] [address] Reason for Visit Chief Complaint: Worsening LE [...] (Auto) 72.2 H, Lymph % (Auto) 20.4, [place] % (Auto) 4.1, Eos % (Auto) 2.0, [...] 0.23, AST 24, ALT 23, Alkaline Ph [id number], Troponin T High Sens 37 H, NT pro BNP II 163, Total Protein 6.7, Albumin 3.5, Globulin3.2, Albumin/Globulin Ratio 1.1 08/16/25 23:22: POC Glucose [...] % (Auto) 69.6, Lymph % (Auto) 21.7, [place] % (Auto) 4.7, Eos % (Auto) 2.5, [...] airspace consolidation or pleural effusions. Reading Location: [facility] Physical Exam Narrative GENERAL: dyspneic at [...] 55 Minutes Charges/Coding Visit Charges Inpatient E&M: 24813 Subs Hosp L3 08/17/25 0822 Cosigner Signature (if applicable): CC: ~ Signed [facility]09-17-2025 Consult note Author Kaylene Trejo [facility] Note Date/Time August 16, 2025 11:30pm [facility] Medical Records Department [address] [place] [address] Pharmacokinetic/Renal -Consult 08/16/252316 MR#: [id number] Acct: [id number] Name: MACARIO WALLACE Rep #:[id number] : 1975 50 From: Kaylene Trejo PCP: Dr. Delmy Solorzano MD Status:ADM IN Y Location: [place] [address] Consult Antibiotic Management Pharmacy has been consulted [...] Follow-Up Labs: Trough: Vancomycin (08/17/25 @ 20:30) 08/16/25 2318 <Electronically signed by Kaylene Trejo> Date _ Kaylene Trejo 08/16/25 2330 <Electronically signed by Olamide andujar MD> Cosigner Signature (if applicable): Date Olamide Mas MD CC: ~ Signed [facility] Work Phone: 1(339) 597-959609-16-2025 History and physical note Author Olamide Mas [facility] Note Date/Time August 16, 2025 9:32pm [facility] Medical Records Department [address] [facility] [place] [address] H&P Exam - Hospitalist 08/16/252105 MR#: [id number] Acct: [id number] Name: MACARIO WALLACE Rep #:[id number] : 1975 50 From: Olamide Mas MD PCP: Dr. Delmy Solorzano MD Status:ADM IN Location: [facility] [id number]- 1 HPI - General General Date of [...] neuropathy, Hx VTE who presents to the [facility] ED on 08/16/2025 with history of increasing [...] now upon current presentation up to408 pounds. [facility] Medical History (Updated 08/16/25 @ 21:32 by [...] 2.5 mg/3 mL 2.5 mg inhalation Q4H MA N SOB 12/09/22 07/10/23 History (0.083 %) [...] (Auto) 72.2 H, Lymph % (Auto) 20.4, [place] % (Auto) 4.1, Eos % (Auto) 2.0, [...] airspace consolidation or pleural effusions. Reading Location: [facility] Assessment & Plan Assessment/Plan (1) Cellulitis [...] neuropathy, Hx VTE who presents to the [facility] ED on 08/16/2025 with history of increasing [...] Code status. Charges/Coding Visit Charges Inpatient E&M: 30206 Init Hosp L3 08/16/252131 <Electronically signed by Olamide Mas MD> Cosigner Signature (if applicable): CC: Dr. Olamide Mas MD; Dr. Delmy Solorzano MD~ Signed [facility] Work Phone: [phone]) 543-325109-16-2025 Consult note [facility] Medical Records Department [address] [place] [address] Pharmacokinetic/Renal -Consult 08/16/25 2317 MR#: [id number] Acct: [id number] Name: MACARIO WALLACE Rep #:[id number] : 1975 50 From: Kaylene Trejo PCP: Dr. Delmy Solorzano MD Status:ADM IN Location: [place] [address] Consult Antibiotic Management Pharmacy has been consulted [...] Follow-Up Labs: Trough: Vancomycin (08/17/25 @ 20:30) 08/16/25 2318 Date _ Kaylene Trejo 08/16/25 2330 e > Cosigner Signature (if applicable): Date Olamide Mas MD CC: ~ Signed [facility]09-16-2025 Evaluation note* Diagnosis Onset Date Resolution Status Admit Date Cellulitis and abscess of right leg acute August 16, 2025 9:09pm Contusion of right great toe with damage to nail acute August 162024 9:09pm Elevated troponin acute [facility] [place] 9:09pm Right leg pain acute August 16, 2025 9:09pm Skin ulcer of left great toe , limited to breakdown of skin acute Sep tember 2024 9:09pm Type 2 diabetes mellitus wit h hyperglycemia acute August 16, 2025 9:09pm Chronic venous stasis dermatitis chronic August 16, 2025 9:09pm Cellulitis of leg resolved [facility] [place] 9:09pm Sepsis resolved August 9:09pm [facility] Work Phone: [phone]) 416-394109-16-2025 Discharge summary Author Jozef Kaiser [facility] Note Date/Time August 16, 2025 9:07pm [facility] Medical Records Department [address] [place] [address] Emergency Department Summary 08/16/25 MR#: [id number] Acct: [id number] Name: MACARIO WALLACE Rep #:[id number] : [...] similar symptoms: Yes Recent Illness/Hospitalization: No PFSH PFS Medical History MRSA cellulitis of left foot [...] 2.5 mg/3 mL 2.5 mg inhalation Q4H MA N SOB 12/09/22 07/10/23 History (0.083 %) [...] (Auto) 72.2 H Lymph % (Auto) 20.4 [place] % (Auto) 4.1 Eos % (Auto) 2.0 [...] airspace consolidation or pleural effusions. Reading Location: [facility] The radiology report was reviewed. Agree with cardiomegaly disagree with vascular congestion. Furthermore patient has no rales and BNP is normal. EKG Initial EKG: Attestation: I personally reviewed and interpreted this EKG as follows: Interpretation: Sinus Rhythm (Rate is 93. MA interval is 140 ms. Cures duration 86 ms her QT duration Aleks 68 ms. Lavinia normal. EKG is normal.) Management Discussion w/another [...] Elevated troponin Disposition Disposition: Acute Care Hospital [facility] What to do if you have Problems For any increased pain, shortness of breath, bleeding, nausea or vomiting, chestpain, or any unexpected problems, contact your Primary Care Provider. Call [facility] ([phone]) or report to the closest Emergency Room. Call 911 if necessary. 08/16/252106 <Electronically signed by Jozef Kaiser MD> Cosigner Signature (if applicable): CC: Dr. Delmy Solorzano MD ~ Signed [facility] Work Phone: 1([phone]) 102-948409-16-[address] [facility] Medical Records Department [address] [place] [address] H&P Exam - Hospitalist 08/16/252105 MR#: [id number] Acct: [id number] Name: MACARIO WALLACE Rep #:[id number] : 1975 50 From: Olamide Mas MD PCP: Dr. Delmy Solorzano MD Status:ADM IN Location: [facility] [id number]- 1 HPI - General General Date of [...] neuropathy, Hx VTE who presents to the [facility] ED on 08/16/2025 with history of increasing [...] now upon current presentation up to408 pounds. [facility] Medical History (Updated 08/16/25 @ 21:32 by [...] 2.5 mg/3 mL 2.5 mg inhalation Q4H MA N SOB 12/09/22 07/10/23 History (0.083 %) [...] (Auto) 72.2 H, Lymph % (Auto) 20.4, [place] % (Auto) 4.1, Eos % (Auto) 2.0, [...] airspace consolidation or pleural effusions. Reading Location: [facility] Assessment & Plan Assessment/Plan (1) Cellulitis [...] neuropathy, Hx VTE who presents to the [facility] ED on 08/16/2025 with history of increasing [...] Code status. Charges/Coding Visit Charges Inpatient E&M: 48580 Init Hosp L3 08/16/25 2132 Cosigner Signature (if applicable): CC: Dr. Olamide Mas MD; Dr. Delmy Solorzano MD~ Signed [facility]09-16-[address] [facility] Medical Records Department [address] [place] [address] Emergency Department Summary 08/16/25 MR#: [id number] Acct: [id number] Name: MACARIO WALLACE Rep #:[id number] : [...] 2.5 mg/3 mL 2.5 mg inhalation Q4H MA N SOB 12/09/22 07/10/23 History (0.083 %) [...] (Auto) 72.2 H Lymph % (Auto) 20.4 [place] % (Auto) 4.1 Eos % (Auto) 2.0 [...] airspace consolidation or pleural effusions. Reading Location: [facility] The radiology report was reviewed. Agree with cardiomegaly disagree with vascular congestion. Furthermore patient has no rales and BNP is normal. EKG Initial EKG: Attestation: I personally reviewed and interpreted this EKG as follows: Interpretation: Sinus Rhythm (Rate is 93. MA interval is 140 ms. Cures duration 86 ms her QT duration Aleks 68 ms. Lavinia normal. EKG is normal.) Management Discussion w/another [...] Elevated troponin Disposition Disposition: Acute Care Hospital [facility] What to do if you have Problems For any increased pain, shortness of breath, bleeding, nausea or vomiting, chestpain, or any unexpected problems, contact your Primary Care Provider. Call [facility] ([phone]) or report tothe closest Emergency Room. Call 911 if necessary. 08/16/252106 Cosigner Signature (if applicable): CC: Dr. Delmy Solorzano MD ~ Signed [facility]09-16-2025 Radiology Diagnostic study note [facility] Imaging Services [address] [place] [address] Chest PA and Lateral MR#: [id number] Acct: [id number] Name: MACARIO WALLACE KENJI Rep #: [id number] : 1975 F 50 From: Sebas Morrissey MD PCP: Dr. Delmy Solorzano MD Status: REG ER Study:Chest PA and Lateral Date of Exam: 08/16/25 Exam# [id number] Ordering Dr: Savanna Kaiser MD PROCEDURE: CHEST [...] airspace consolidation or pleural effusions. Reading Location: [facility] CC: Dr. Delmy Solorzano MD; Dr. Jozef Kaiser MD ~ 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: Signed [facility]09-16-2025 Discharge summary Author Jozef Kaiser [facility] Note Date/Time August 16, 2025 9:07pm [facility] Medical Records Department [address] [place] [address] Emergency Department Summary 08/16/25 MR#: [id number] Acct: [id number] Name: RIGOBERTOVENKATMACARIO Rep #:[id number] : 1975 50 From: [...] 2.5 mg/3 mL 2.5 mg inhalation Q4H MA N SOB 12/09/22 07/10/23 History (0.083 %) [...] (Auto) 72.2 H Lymph % (Auto) 20.4 [place] % (Auto) 4.1 Eos % (Auto) 2.0 [...] airspace consolidation or pleural effusions. Reading Location: [facility] The radiology report was reviewed. Agree with cardiomegaly disagree with vascular congestion. Furthermore patient has no rales and BNP is normal. EKG Initial EKG: Attestation: I personally reviewed and interpreted this EKG as follows: Interpretation: Sinus Rhythm (Rate is 93. MA interval is 140 ms. Cures duration 86 ms her QT duration Aleks 68 ms. Lavinia normal. EKG is normal.) Management Discussion w/another [...] Elevated troponin Disposition Disposition: Acute Care Hospital [facility] What to do if you have Problems For any increased pain, shortness of breath, bleeding, nausea or vomiting, chestpain, or any unexpected problems, contact your Primary Care Provider. Call [facility] ([phone]) or report to the closest Emergency Room. Call 911 if necessary. 08/16/252106 <Electronically signed by Jozef Kaiser MD> Cosigner Signature (if applicable): CC: Dr. Delmy Solorzano MD ~ Signed [facility] Work Phone: 1(481) 711-744612-13-2024 [facility] Medical Records Department [address] [place] [address] Discharge Summary 11/12/24 1614 MR#: [id number] Acct: [id number] Name: MACARIO WALLACE Rep #: [id number] : 1975 49 From: Ling Neville MD PCP: Dr. Delmy Solorzano MD Status:ADM IN Location: [place] [address] Providers Date of Admission: 11/09/24 Date of Discharge: 11/12/24 Primary Care Physician: Delmy Solorzano MD Consultations 11/10/24 07:25 Consult: Onc/Wound/forensic artist Routine Comment: Reason for Consult:: Cellulitis 11/11/24 [...] up yellow and brow (more content not included)...[facility]09-05-2023 Miscellaneous Notes* Telephone Encounter - Lula Cameron [...] Requested Prescriptions Pending Prescriptions Disp Refills Insulin [place], Disposable, (BD ULTRA-FINE GABINO PEN NEEDLE) 32 gauge x 5/32 100 Each 0 Sig: Inject 1 Each [...] you. Keyonna Gross LPN documented in this encounter[facility]-2023 Miscellaneous Notes* Telephone Encounter - Georgina Samayoa RN - 08/05/2023 1:07 PM EDT Opened in Error documented in this encounterScci Hospital [facility]08-30-2023 Miscellaneous Notes* Telephone Encounter - Roc Stephens [...] effective 07/25. I discussed with her at OV on 06/24 we were discharging her and would continue her care for 30 days. She had a follow up appointment within that timeframe but has repeatedly cancelled OV same day. Please cancel OV and notify patient. Can fax records to new PCP if she requests. documented in this encounterScci [facility]08-29-2023 Miscellaneous Notes* Telephone Encounter - Keyonna Gross [...] 10:18 AM EDT Medication refill requested by [facility]. Requested Prescriptions Pending Prescriptions Disp Refills gabapentin (NEURONTIN) 800 mg tablet Sig: Take 1 tablet by mouth three times daily. Last encounter with this provider: 06/24/2023 Next appt: 07/29/2023 Tri Sorensen RN documented in this encounterScci [facility]08-23-2023 Miscellaneous Notes* Telephone Encounter - Marianne Grier [...] you. Marianne Grier RN documented in this encounterScci [facility]08-15-2023 Discharge summary Author Belem Aponte [facility] July 15, 2023 12:23pm Note Date/Time July 15, 2023 12 :03pm [facility] Medical Records Department [address] [place] [address] Discharge Summary 07/15/23 1203 MR#: [id number] Acct: [id number] Name: MACARIO WALLACE Rep #:[id number] : 1975 48 From: Belem Aponte DO PCP: Dr. Tino Oreilly MD Status :ADM JACQUELYN Location: [place] [address]- 1 Providers Date of Admission: 07/14/23 Date of [...] baseline. She indicated she was recently in [place] visiting her mother and had to be [...] % (Auto) 67.8, Lymph % (Auto) 21.4, [place] % (Auto) 4.5, Eos % (Auto) 1.8, [...] Neut % (Auto) 67.0, Lymph % (Auto)21.4, [place] % (Auto) 4.5, Eos % (Auto) 2.1, [...] 80 mg tablet 80 mg PO QHS eflndaef-cjcb-QY-calcium-mins 1 EACH tablet 1 ea PO DAILY [...] - Within 2 Weeks Nelly Hunter NP, ROPING TENDER-C [Med Staff - Adv Practice Prof] - Within 1 Month (callfor appt) Disposition Disposition (needs filled in before D/C Order can be placed): Home, Self Care Charges/Coding Visit Charges Inpatient E&M: 48342 Disch Hosp 07/15/23 1223 <Electronically signed by Belem Aponte DO> Cosigner Signature (if applicable): CC: Dr. Tino Oreilly MD; Dr. Belem Aponte DO~ Signed [facility] Work Phone: 1(230) 765-138408-14-2023 History and physical note Author Liam Wilkes [facility] July 14, 2023 8:28pm Note Date/Time July 14, 2023 5: 10pm [facility] Medical Records Department [address] [place] [address] H&P Exam - Hospitalist 07/14/23 0234 MR#: [id number] Acct: [id number] Name: MACARIO WALLACE Rep #:[id number] : 1975 48 From: Liam regalado MD PCP: Dr. Tino Oreilly MD Status :ADM JACQUELYN Location: [place] [address]- 1 HPI - General General Date of [...] She states that [place] was [place] secondary to severe volume overload and had to be on dialysis for 2 days in order to get the fluid off. She does state that she follows a fluid restricted diet and a salt restricted diet as well. [facility] Medical History (Updated 07/14/23 @ 16:49 by [...] % (Auto) 67.8, Lymph % (Auto) 21.4, [place] % (Auto) 4.5, Eos % (Auto) 1.8, [...] with colleagues Charges/Coding Visit Charges Inpatient E&M: 46432 Init Hosp L3 07/14/232027 <Electronically signed by Liam Wilkes MD> Cosigner Signature (if applicable): CC: Dr. Tino Oreilly MD; Dr. Liam Wilkes MD~ Signed [facility] Work Phone: 1(289) 321-864708-14-2023 History and physical note Author Liam Wilkes [facility] July 14, 2023 8:28pm Note Date/Time July 14, 2023 5: 10pm [facility] Medical Records Department [address] [place] [address] H&P Exam - Hospitalist 07/14/23 1639 MR#: [id number] Acct: [id number] Name: MACARIO WALLACE Rep #:[id number] : 1975 48 From: Liam regalado MD PCP: Dr. Tino Oreilly MD Status :ADM JACQUELYN Location: [place] [address] HPI - General General Date of Admission: [...] She states that she was recently [place] secondary to severe volume overload and had to be on dialysis for 2 days in order to get the fluid off. She does state that she follows a fluid restricted diet and a salt restricted diet as well. [facility] Medical History (Updated 07/14/23 @ 16:49 by [...] % (Auto) 67.8, Lymph % (Auto) 21.4, [place] % (Auto) 4.5, Eos % (Auto) 1.8, [...] with colleagues Charges/Coding Visit Charges Inpatient E&M: 34102 Init Hosp L3 07/14/232027 <Electronically signed by Liam Wilkes MD> Cosigner Signature (if applicable): CC: Dr. Tino Oreilly MD; Dr. Liam Wilkes MD~ Signed [facility] Work Phone: [phone]) 632-631408-14-2023 Discharge summary Author Irina Quintero [facility] July 14, 2023 4:18pm Note Date/Time July 14, 2023 11 :28am [facility] Medical Records Department [address] [place] [address] Emergency Department Summary 07/14/23 MR#: [id number] Acct: [id number] Name: MACARIO WALLACE Rep #:[id number] : 1975 48 From: Irina Quintero MD PCP: Dr. Tino Oreilly MD Status :ADM JACQUELYN Location: [place] [address] HPI History of Present Illness Chief Complaint: [...] she was hospitalized at a hospital in [place] 5 to 6 weeks ago on life support with another flare. She has noted recent weight gain. [facility] Medical History Abscess Abscess of vulva Acute [...] Medical decision making narrative: Patient placed on ceramic coater. EKG obtained to evaluate for cardiac arrhythmia/ischemia. [...] % (Auto) 67.8 Lymph % (Auto) 21.4 [place] % (Auto) 4.5 Eos % (Auto) 1.8 [...] 80 mg tablet 80 mg PO QHS rctvfcqk-yvnm-RQ-calcium-mins 1 EACH tablet 1 ea PO DAILY [...] Provider] - Disposition Disposition: Acute Care Hospital [facility] What to do if you have Problems For any increased pain, shortness of breath, bleeding, nausea or vomiting, chestpain, or any unexpected problems, contact your Primary Care Provider. Call [facility] ([phone]) or report to the closest Emergency Room. Call 911 if necessary. 07/14/23 5678 <Electronically signed by Irina Quintero MD> Cosigner Signature (if applicable): CC: Dr. Tino Oreilly MD ~ Signed [facility] Work Phone: [phone]) 802-420308-14-2023 Discharge summary Author Irina Quintero [facility] July 14, 2023 4:18pm Note Date/Time July 14, 2023 11 :28am [facility] Medical Records Department [address] [place] [address] Emergency Department Summary 07/14/23 MR#: [id number] Acct: [id number] Name: MACARIO WALLACE Rep #:[id number] : 1975 48 From: Irina Quintero MD PCP: Dr. Tino Oreilly MD Status :ADM JACQUELYN Location: [place] [address] HPI History of Present Illness Chief Complaint: [...] she was hospitalized at a hospital in [place] 5 to 6 weeks ago on life support with another flare. She has noted recent weight gain. [facility] Medical History Abscess Abscess of vulva Acute [...] Medical decision making narrative: Patient placed on ceramic coater. EKG obtained to evaluate for cardiac arrhythmia/ischemia. [...] % (Auto) 67.8 Lymph % (Auto) 21.4 [place] % (Auto) 4.5 Eos % (Auto) 1.8 [...] congestion and mild CHF. Electronically Signed: Dylan Gna MD at 11:49 EDT , EKG Initial [...] 80 mg tablet 80 mg PO QHS dgumzucs-rsfa-BW-calcium-mins 1 EACH tablet 1 ea PO DAILY [...] Provider] - Disposition Disposition: Acute Care Hospital [facility] What to do if you have Problems For any increased pain, shortness of breath, bleeding, nausea or vomiting, chestpain, or any unexpected problems, contact your Primary Care Provider. Call [facility] ([phone]) or report to the closest Emergency Room. Call 911 if necessary. 07/14/23 9799 <Electronically signed by Irina Quintero MD> Cosigner Signature (if applicable): CC: Dr. Tino Oreilly MD ~ Signed [facility] Work Phone: 1(300) 303-549108-14-2023 Discharge summary Author Irina Quintero [facility] July 14, 2023 4:18pm Note Date/Time July 14, 2023 11 :28am [facility] Medical Records Department [address] [place] [address] Emergency Department Summary 07/14/23 MR#: [id number] Acct: [id number] Name: MACARIO WALLACE Rep #:[id number] : 1975 48 From: Irina Quintero MD PCP: Dr. Tino Oreilly MD Status :ADM JACQUELYN Location: [address] History of Present Illness Chief Complaint: [...] she was hospitalized at a hospital in [place] 5 to 6 weeks ago on life support with another flare. She has noted recent weight gain. [facility] Medical History Abscess Abscess of vulva Acute [...] Medical decision making narrative: Patient placed on ceramic coater. EKG obtained to evaluate for cardiac arrhythmia/ischemia. [...] % (Auto) 67.8 Lymph % (Auto) 21.4 [place] % (Auto) 4.5 Eos % (Auto) 1.8 [...] 80 mg tablet 80 mg PO QHS htpcilnb-gfff-ME-calcium-mins 1 EACH tablet 1 ea PO DAILY [...] Provider] - Disposition Disposition: Acute Care Hospital [facility] What to do if you have Problems For any increased pain, shortness of breath, bleeding, nausea or vomiting, chestpain, or any unexpected problems, contact your Primary Care Provider. Call [facility] ([phone]) or report to the closest Emergency Room. Call 911 if necessary. 07/14/23 1618 <Electronically signed by Irina Quintero MD> Cosigner Signature (if applicable): CC: Dr. Tino Oreilly MD ~ Signed [facility] Work Phone: 1(355) 577-889308-08-2023 Miscellaneous Notes* Telephone Encounter - Roc Stephens Ma - 07/08/2023 4:53 PM EDT PA sent from pharmacy for lancets/test strips. Pa was completed since patient already has working meter Completed through covermymeds Lancets foley: [id number] Was approved: PA Case: [id number], Status: Approved, Coverage Starts on: 04/08/2023 12:00:00 AM, Coverage Ends on: 07/07/2024 12:00:00 AM. Test strips foley: [id number] Was approved: Approved PA Case: [id number], Status: Approved, Coverage Starts on: 04/08/2023 12:00:00 AM, Coverage Ends on: 07/07/2024 12:00:00 AM. Roc Stephens Ma documented in this encounterScci [facility]08-08-2023 Miscellaneous Notes* Telephone Encounter - Lula Sarmiento [...] But patient is scheduled to see you oRc Stephens Ma * Telephone Encounter - Vanessa Ruth - 07/08/2023 1:27 PM EDT Macario Gómez Wallace is calling Panfilo Oreilly MD today to request medication that does not appear on current med list: Nicotene Transdermal system patch 21 mg apply once daily Patient has been identified by name and birthdate. Duration of symptoms: ongoing Person calling: self Call patient at: at home [phone] (home) [phone] (cell) Was an appointment scheduled: No Closing statement: Results or non-symptom based questions: Thank you for [facility], your call will be returned within the next business day. Vanessa Domingo documented in this encounterScci Hospital [facility]08-08-2023 Miscellaneous Notes* Telephone Encounter - Cass Morin MA - 07/08/2023 1:40 PM EDT HUMBLE: 06/24/23 with CB NOV: 07/22/23 with CB Last refill: Lancets 12/21/21 With 200 and 3 refills Freestyle test strips 11/27/22 With 200 strips and 3 refills BD ultra Fine [place] 07/24/22 With 100 and 5 refills Ozempic [...] time a week. This REPLACES Trulicity. Insulin [place], Disposable, (BD ULTRA-FINE GABINO PEN NEEDLE) 32 gauge x 5/32 100 Each 5 Sig: Inject 1 Each [...] notify patient. Vanessa Domingo documented in this encounterScci [facility]07-21-2023 Miscellaneous Notes* Telephone Encounter - Annie Bey [...] you. Mariam Meredith RN documented in this encounterScci [facility]07-07-2023 History of Present illness Narrative* Omaira Taveras RN - 06/06/2023 10:28 AM EDT TRANSITIONAL CARE MANAGEMENT (TCM) COMMUNITY MONITORING PROGRAM Provider Action/FYI: Will defer initial outreach to pt for [facility] hospital discharge. Pt was transferred to another hospital Copied from Care Everywhere [facility] 05/27/2023 8:24 PM EDT - 05/31/2023 5:00 PM EDT Principal problem: KERRY Discharge Disposition: Another Health Care Institution Not Defined [facility] 05/31/2023 5:51 PM EDT - Present Multiple tracheobronchial mucus plugs (Primary Dx); Acute respiratory failure with hypoxia and hypercapnia (CMS/HCC); Impaired mobility and ADLs Assessment/Comments: Macario Wallace is a 47 y.o.female admitted as a transfer from [facility] for increasing shortness of breath. Pt was dialyzed, given levophed and ultimately intubated. PMH includes CHF, DM, LOGAN SUMMARY: Discharge Network Status: Stx-lz-Hiwiyfe (OON) Discharge Pt discharged from [facility] on 05/31[facility]23. Admitted for: KERRY Outreach ended documented in this encounterS[facility]-29-2023 Miscellaneous Notes* Telephone Encounter - Lula Cameron LPN - 05/29/2023 8:25 AM EDT Opened in error. Lula Cameron LPN documented in this encounterScci Hospital [facility]ima06-23-2023 Miscellaneous Notes* Telephone Encounter - Panfilo Oreilly [...] 05/23/2023 11:24 AM EDT Pharmacy verified in [facility] Patient has been identified by name and [...] advise. Irina Reddy Pss documented in this encounterScci Hospital [facility]ima06-14-2023 Miscellaneous Notes* Telephone Encounter - Kimber Hendrickson MA - 05/14/2023 2:53 PM EDT DME forms signed by Dr. Oreilly and faxed to [facility] [place]. Kimber Hendrickson MA documented in this encounterScci Hospital [facility]ima06-02-2023 Miscellaneous Notes* Telephone Encounter - Panfilo Oreilly [...] going [place] a [place] to [place] and that her would is doing really well, it's almost healed. And would not let me assess the wound today. I discharged her from home care. Thank you documented in this encounterScci Hospital Lima06-02-2023 Miscellaneous Notes* SN Agency DC - Kallie Cali RN - 05/02/2023 12:22 PM EDT SITUATION: Mcc agency discharge visit completed today. only patient [...] SOB. pt has BG sensor and checks frequently during the day pt is non compliant with daily wts. SN taught pt importance of daily weights. pt refused to let SN assess cellulitis wound, pt states, it is really all healed up. pt to be a recert today to continue home care, SN talked with pt about continuing home care services. pt states, I don't think I need a nurse any more, I am better, and it's really all healed up. Also I [place] going to go [place] vacation for a few weeks SN reviewed d/c instructions wiht pt. SN gave pt phone number to contact [email or web address] if more supplies are needed. See intervention [...] for additional medical questions/concerns. documented in this encounterScci Hospital Lima05-31-2023 Miscellaneous Notes* Telephone Encounter - Kimberly Almodovar Ma - 04/30/2023 3:37 PM EDT Notified pt via [employer] Rx has been sent into the pharmacy. [...] you. Lashon Overton LPN documented in this encounterScci Hospital [facility]ima05-29-2023 Miscellaneous Notes* HH PT EVALUATION - Thierno Tripathi, PT - [...] Precautions: fall risk ASSESSMENT: [facility]. Reviewed and explained homecare [...] summary for intervention/education details. documented in this encounterScci Hospital [facility]ima05-27-2023 Miscellaneous Notes* [facility] JIGNESH - Jacquelin Mtz RN - 04/26/2023 10:41 AM EDT SITUATION: Mcc JIGNESH visit completed today. daughter and son also present during today's visit. patient reports the following: Allergies--reviewed Medications--full medication reconciliation completed Falls--None DME-Reviewed BACKGROUND: Initial reason for home care: Acute on chronic respiratory failure with hypercapnia Perianal abscess JIGNESH today due to Discharged/Referral from [facility] hospital on 04-25-23 following treatment for [...] CHF and COPD education documented in this encounterScci Hospital Lima05-10-2023 Miscellaneous Notes* SN Routine - Bonnie Yuen RN - 04/09/2023 1:06 PM EDT SITUATION: Mcc routine visit completed today. only patient present [...] wound care and assessment documented in this encounterScci Hospital [facility]ima05-03-2023 Miscellaneous Notes* SN Routine - Bonnie Yuen RN - 04/02/2023 11:06 AM EDT SITUATION: Mcc routine visit completed today. only patient present [...] wound assessment and care documented in this encounterScci Hospital [facility]ima04-28-2023 Miscellaneous Notes* Telephone Encounter - Hallie Martinez [...] you. Mehrdad Michael RN documented in this encounterScci Hospital [facility]ima04-27-2023 Miscellaneous Notes* Letter - Conrado Sellers MD - 03/27/2023 12:57 PM EDT [facility] Payer Denial Management [address] [place] [address] DATE: 03/26/2023 [address]ILITY: [facility]. Patient: MACARIO WALLACE Date of Service: 01/13/2023 [...] December 26, for EUA and debridement; a Charlotte drain was left in the L inguinal [...] was able to be transferred to the [facility] on December 31, 2022. Operative cultures were positive for Strep anginosus. The drain in the L inguinal wound was removed on January 01, 2023, and she was deemed safe for discharge at that time. Ms. Wallace was seen in the OP surgical clinic for followup on January 13, 2023 and was found to have a new abscess in the R inner thigh, along with [...] and was not preventable or a voidable. [facility] request your kind reconsideration of this case; and full proper reimbursement for the inpatient admission of January 13, 2023 to January 16, 2023. A review of the enclosed documentation will support these statements. Please send your response to [facility], [facility], [address] [place] [address], [place] [address]. If additional information is needed please contact me at [phone]. Sincerely, Conrado Sellers M.D. [place] Physician Advisor [address] [place] [address] [email or web address] documented in this encounterScci Hospital Lima04-21-2023 Miscellaneous Notes* SN Routine - Bonnie Yuen RN - 03/21/2023 1:05 PM EDT SITUATION: Mcc routine visit completed today. only patient present [...] transportation issue. She reports that cg noted pus for a few days this week in [...] wound assessment and care documented in this encounterScci Hospital Lima04-19-2023 Miscellaneous Notes* CARE COORDINATION - PER Bo[place] - 03/19/2023 2:00 PM EDT 03/19/23 2:05 PM - 2:08 PM DANCE STUDIO MANAGER called the pt. regarding if she needed transportation and if her daughter told her DANCE STUDIO MANAGER called regarding this. The pt. stated her daughter told her DANCE STUDIO MANAGER called. The pt. stated she did not need transportation. The pt. is aware of [employer] Medicaid providing transp ortation to medical appointments. DANCE STUDIO MANAGER informed the pt. that DANCE STUDIO MANAGER spoke to Brandy Puenteandreina her Waiver Dry Press Operator Helper with [employer] [facility] on Aging regarding transportation and Waiver is payor of last resort. DANCE STUDIO MANAGER asked the pt. if they had found an Aide yet under Waiver. The pt. stated she is talking to an Aide today that is an Independent Provider regarding being her Aide under Wa iver. DANCE STUDIO MANAGER informed the pt. to call DANCE STUDIO MANAGER with any needs. 03/19/23 DANCE STUDIO MANAGER messaged PHAM Rodriguez-DANCE STUDIO MANAGERKip Villeda regarding above phone call with the pt. documented in this encounterScci Hospital [facility]ima04-14-2023 Miscellaneous Notes* SN Routine - Bonnie Yuen RN - 03/14/2023 2:21 PM EDT SITUATION: Mcc routine visit completed today. family members also [...] wound assessment and care. documented in this encounterScci Hospital [facility]ima04-12-2023 Miscellaneous Notes* Telephone Encounter - Panfilo Oreilly [...] patient. Tri Sorensen RN documented in this encounterScci Hospital [facility]ima04-12-2023 Miscellaneous Notes* PT EVALUATION - Devin Barragan, TAMARA - 03/12/2023 12:52 PM EDT SITUATION: roomate [...] Precautions: Fall risk ASSESSMENT: [facility] evaluated [facility]. Reviewed and explained homecare [...] summary for intervention/education details. documented in this encounterScci Hospital [facility]ima04-12-2023 Miscellaneous Notes* Telephone Encounter - Sandra Potts LPN - 03/12/2023 10:22 AM EDT Faxed at this time. Sandra Potts LPN * Telephone Encounter - Hallie Martinez APRN.CNP - 03/12/2023 7:32 AM EDT Please fax recent office note with DME orders to [phone] TTN: Thang Laureano. All papers in my outbox. Hallie Martinez APRN.CNP documented in this encounterScci Hospital [facility]ima04-11-2023 Instructions* Patient Instructions* Hallie Martinez APRN.CNP - 03/11/2023 12:06 PM EDT Counseling and Psychiatry Services [facility] [address] [place] [address] *counseling [facility] [address] [address] *counseling [address] [id number] *counseling [facility] [address] [place] [address] *counseling and psychiatry [address] [address] *counseling [address] [address] *counseling [place] [address] [facility] [address] *counseling [place] [address] [place] [address] *counseling [facility] [address] [place] [address] [facility] [address], [address] [place] [address] *counseling [facility] [address] [place], [place] [id number] [facility] [address] [place], [place] [address] *counseling Daphney Monet [address] [facility] [address] [place] [address] [employer] [address] [facility] [facility] [place] [address] *counseling [employer] [address] [place] [address] *counseling [facility] [address] [place], [place] [address] *counseling and psychiatry [facility] [employer] [facility], [address] [place], [place] [address] *psychiatry [facility] [phone] *grief counseling, individual and groups *If you ever experience a mental health crisis please call [phone], 911, Please verify with insurance provider for coverage documented in this encounterScci Hospital [facility]ima04-11-2023 History of Present illness Narrative* Hallie Martinez APRN.CNP - 03/11/2023 11:44 AM EDT 03/11/2023 Patient presents with: Hospital F/U: [facility] dx: pneumonia Discharged on 03/05/2023 Completed prednisone [...] Reports she has upcoming appointment with her account analyst, however unsure when appointment is Continues to see wound care at [facility] on as well as home nurse twice [...] of falls at home due balance and knots on her feet which make it difficult to balance herself. [...] She reports she was made aware by caser up she can call and set up rides through their service to assist to getting to appointments. Available hospital records reviewed. 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 Left, small lesion on CT Anxiety Cholecystitis s/p cholecystectomy Diabetes mellitus without mention of complication Diabetic neuropathy ([facility]) Seeing Neurology Diastolic heart failure ([facility]) GERD (gastroesophageal reflux disease) History of abnormal cervical Pap smear History of tobacco use Hyperlipidemia Insomnia Microalbuminuria Morbid obesity ([facility]) Narcotic abuse ([facility]) Non-STEMI (non-ST elevated myocardial infarction) ([facility]) 2/2 respiratory illness LOGAN (obstructive sleep apnea) using CPAP, Dr. Dumont Pulmonary embolism ([facility]) Seasonal allergies Unspecified essential hypertension ALLERGIES [...] wheezing/shortness of breath. Use over 5-15minutes. Insulin [place], Disposable, (BD ULTRA-FINE GABINO PEN NEEDLE) 32 [...] auscultated. EXTREMITIES Trace edema to BLE. No knots noted to soles of feet SKIN Skin [...] continue oxygen as prescribed - follow-up with account analyst as scheduled to ER with red flag symptoms 5. Oxygen dependent - ICD9: V46.2, ICD10: Z99.81 - follow-up with account analyst as scheduled - SEAT LIFT MECHANISM COMBL - HOSP BED W MATTR FULL ELECTRIC - DME SUPPLY OR ACCESSORY, NOS 6. Impaired ambulation - ICD9: 719.7, ICD10: R26.2 - work with PT on strengthening and improving balance - INCONTINENCE SUPPLY - SEAT LIFT MECHANISM COMBL - HOSP BED W MATTR FULL ELECTRIC - DME SUPPLY OR ACCESSORY, NOS 7. Stress incontinence - ICD9: [id number], ICD10: N39.3 - INCONTINENCE SUPPLY 8. Anxiety and depression - ICD9: 300.00, 311, ICD10: F41.9, F32.A - Discussed concept of neurochemical imbalance wth depression/anxiety - Option of Medication use discussed - Risks/benefits of SSRIs - Common side effects - Sleep Hygeine - advised counseling to improve management of stressors- handout of local counseling centers provided - Instructed patient to contact office or cyczf-ts-ozip after-hours promptly should condition worsen or any new symptoms appear. - [facility] and after hours crisis line - German's house phone number or - CITALOPRAM 20 MG TABLET - follow-up in one month, sooner if needed 9. Failure to attend appointment with reason given - ICD9: V15.81, ICD10: Z91.198 - discussed at length with patient about the importance of attending scheduled appointments and theneed to have reliable transportation. She is agreeable to call for rides at number given by caser up. Discussed is she is unable to make appointments she needs to call in advance to cancel - discussed with patient is she continues to not show up for appointments and does not cancel she may be asked to find another provider, verbalizes understanding Hallie Martinez APRN.NIKIA Prescription instructions reviewed with patient as applicable. [...] which included preparing to see the patient, douw-fp-hzfp patient care, completing clinical documentation, obtaining and/or reviewing separately obtained history, performing a medically appropriate examination, counseling and educating the pat ient/family/caregiver, ordering medications, tests, or procedures, and care coordination (not separately reported). documented in this encounterScci Hospital [facility]ima04-10-2023 Miscellaneous Notes* SN Routine - Chey Acharya RN - 03/10/2023 11:19 AM EDT SITUATION: Mcc routine visit completed today. only patient also [...] sepsis education, DM edcuation documented in this encounterScci Hospital [facility]ima04-08-2023 Miscellaneous Notes* Telephone Encounter - Moni Sanches - 03/08/2023 2:47 PM EDT Attempted to schedule PT eval today. Patient declined and prefers another day. Thanks, Dru Sanches, director of front office. documented in this encounterScci Hospital [facility]ima04-07-2023 Miscellaneous Notes* SN SOC - Chey Acharya RN - 03/07/2023 11:09 AM EDT SITUATION: Mcc SOC visit completed today. friend also present during today's visit. patient reports the following: Allergies--reviewed Medications--full medication reconciliation completed Falls--None DME-Reviewed and added to chart BACKGROUND: Discharged/Referral from acute care hospital on 03/05/23 following treatment for Acute [...] except for Aquacel. Patient has Bao to BINA and states she checks blood sugars regularly. [...] dm education, sepsis education documented in this encounterScci Hospital [facility]ima04-07-2023 Miscellaneous Notes* HH CARE COORDINATION - EPR Boone - 03/07/2023 8:10 AM EDT 03/07/23 8:10 AM - 8:12 AM DANCE STUDIO MANAGER called Brandy Ross [facility] Dry Press Operator Helper with [employer] [facility] and left her a message that the pt. was scheduled for a Start of care today. DANCE STUDIO MANAGER stated the pt. to have Nursing and PT. DANCE STUDIO MANAGER left her name and phone number. documented in this encounterScci Hospital [facility]ima04-06-2023 Miscellaneous Notes* Telephone Encounter - Panfilo Oreilly MD - 03/06/2023 9:56 AM EDT Reviewed and agree. * Telephone Encounter - Malka Mas LPN - 03/06/2023 9:[address]Christopher Dorys Oreilly MD , Panfilo Oreilly MD was active with [facility] for sn and pt services. Her [...] you, Malka Mas LPN documented in this encounterScci Hospital [facility]ima04-05-2023 Miscellaneous Notes* Telephone Encounter - Georgina Samayoa RN - 03/05/2023 4:21 PM EDT FYI: Carolee from [facility] calls to report that patient was discharged from [facility] today 03/05/2023. Patient is scheduled with Hallie for hospital follow up on 03/11/2023. Georgina Samayoa RN documented in this encounterScci Hospital [facility]ima04-05-[address] Neville [facility] March 05, 2023 11:07am Note Date/Time March 05, 2023 11:0 7am [facility] Medical Records Department [address] [place] [address] Instructions for Home/Discharge Instructions 03/05/23 1105 MR#: [id number] Acct: [id number] Name: MACARIO WALLACE Rep #:[id number] : [...] Box ; Jarrett Villalobos ; Nelly Hunter ROPING TENDER ; Faraz Lange Instructions Patient Instructions: ED [...] 80 mg tablet 80 mg PO QHS ynpnurln-pemb-BM-calcium-mins 1 EACH tablet 1 ea PO DAILY [...] by Ling Neville MD>Ling Neville MD CC: FADUMO Hunter; Dr. Berlin Dumont MD; Dr. Tino Oreilly MD; Dr. Ace Sanders DO; Dr. Faraz Lange DO; Dr. Fadi Box MD; Dr. Jarrett Villalobos MD ~ Signed [facility] Work Phone: 1(592) 769-989904-05-[address] Sanders [facility] March 05, 2023 7:27am Note Date/Time March 05, 2023 7:[address] [facility] Medical Records Department [address] [place] [address] Progress Note - Vice President Of Sales 03/05/23 0701 MR#: [id number] Acct: [id number] Name: MACARIO WALLACE Rep #:[id number] : [...] of discharge. This note was generated with Easy [employer] dictation software. It may contain incorrectwords, spelling, [...] (Auto) 74.4 H, Lymph % (Auto) 19.1, [place] % (Auto) 5.6, Eos % (Auto) 0.1, [...] affect normal Charges/Coding Visit Charges Inpatient E&M: 81154 Subs Hosp L2 03/05/23 0701 <Electronically signed by Ace Sanders DO> Cosigner Signature (if applicable): CC: ~ Signed [facility] Work Phone: 1(617) 531-938704-04-[address] Neville [facility] March 04, 2023 5:32pm Note Date/Time March 04, 2023 2:15 pm [facility] Medical Records Department [address] [place] [address] Progress Note 03/04/23 1410 MR#: [id number] Acct: [id number] Name: MACARIO WALLACE Rep #:[id number] : 1975 47 From: Ling Neville MD PCP: Dr. Tino Oreilly MD Status :ADM IN Location: ICU CVICU20 1- Subjective Subjective Patient seen and examined. She [...] 86.2 H, Lymph % (Auto) 9.1 L, [place] % (Auto) 3.4, Eos % (Auto) 0.0, [...] necrotizing fasciitis of the left groin in [facility] in December 2023 and had debridement [...] 24-48 hours Charges/Coding Visit Charges Inpatient E&M: 09174 Subs Hosp L2 03/04/23 1732 <Electronically signed by Ling Neville MD> Ling Neville MD Cosigner Signature (if applicable): CC: ~ Signed [facility] Work Phone: [phone]) 524-591804-04-2023 Miscellaneous Notes* CARE COORDINATION - PER [place] - 03/04/2023 3:45 PM EDT 03/04/23 3:54 PM - 3:58 PM DANCE STUDIO MANAGER received a phone call from Brandy [facility] CareManager with [employer] [facility] and she informed DANCE STUDIO MANAGER that the pt. wasadmitted to [facility] yesterday 03/03/23. She stated that someone went to see the pt. and she was not there. Brandy stated that they spoke to the pt.'s family and they informed them thept. was admitted to the hospital yesterday. DANCE STUDIO MANAGER asked Brandy if she was aware the pt.'s insurance changed to [place] [employer] and she stated that the pt. changed her Medicare plan and that she was still [facility]. Brandy stated that the pt. was still on Waiver. 03/04/23 3:54 PM - 3:57 PM DANCE STUDIO MANAGER called [facility] and spoke to the Environmental Field Office Manager regarding if the pt. was admitted there and she informed DANCE STUDIO MANAGER that the was was currently admitted there. 03/04/23 4;03 PM DANCE STUDIO MANAGER Emailed [facility] Field Support Scheduling, Bharat Gardner RN Case Manager and Irina Martínez RN - [facility], the pt. Macario Wallace has been admitted to [facility] 03/03/23 per Waiver Dry Press Operator Helper. I did call [facility] and they stated she was admittedthere. She is a SOC for tomorrow. Thanks, documented in this encounterScci Hospital [facility]ima04-04-2023 Miscellaneous Notes* CARE COORDINATION - PER [place] - 03/04/2023 2:45 PM EDT 03/04/23 2:54 PM - 2:56 PM DANCE STUDIO MANAGER called Brandy Ross [facility] Dry Press Operator Helper with [employer] [facility] on [facility] and left her a message regarding if the pt. was still on Waiver and regarding the pt.'s insurance changing to [place]. DANCE STUDIO MANAGER left her name and phone number for Brandy to call DANCE STUDIO MANAGER back. documented in this encounterScci Hospital [facility]ima04-04-[address] Sanders [facility] March 04, 2023 9:16am Note Date/Time March 04, 2023 7:09 am [facility] Medical Records Department [address] [place] [address] Progress Note - Vice President Of Sales 03/04/23 0707 MR#: [id number] Acct: [id number] Name: MACARIO WALLACE Rep #:[id number] : [...] of discharge. This note was generated with Easy Voyage dictation software. It may contain incorrectwords, spelling, [...] 86.2 H, Lymph % (Auto) 9.1 L, [place] % (Auto) 3.4, Eos % (Auto) 0.0, [...] Right Wound Culture - Preliminary GNR non neon molder 03/02/23 18:10 Urine Catheter - Catheter Urine [...] affect normal Charges/Coding Visit Charges Inpatient E&M: 81371 Subs Hosp L2 03/04/23 0916 <Electronically signed by Ace Sanders DO> Cosigner Signature (if applicable): CC: ~ Signed [facility] Work Phone: [phone]) 610-329904-04-2023 Consult note Author Faraz Lerner [facility] March 04, 2023 12:10am Note Date/Time March 04, 2023 12:1 0am [facility] Medical Records Department [address] [place] [address] Pharmacokinetic/Renal -Consult 03/04/23 0008 MR#: [id number] Acct: [id number] Name: MACARIO WALLACE Rep #:[id number] : [...] Right Wound Culture - Preliminary GNR non neon molder 03/02/23 18:10 Urine Catheter - Catheter Urine [...] Signature (if applicable): Date CC: ~ Signed [facility] Work Phone: 1(836) 381-190504-03-[address] Neville [facility] March 03, 2023 5:48pm Note Date/Time March 03, 2023 5:[address] [facility] Medical Records Department [address] [place] [address] Progress Note 03/03/23 1734 MR#: [id number] Acct: [id number] Name: MACARIO WALLACE Rep #:[id number] : 1975 47 From: Ling Neville MD PCP: Dr. Tino Oreilly MD Status :ADM IN Location: ICU CVICU20 1- Subjective Subjective Patient seen and examined. She [...] Clarity Clear, Urine pH 6.0, Ur Specific [place] 1.015, Urine Protein 30 H, Urine Glucose [...] 85.4 H, Lymph % (Auto) 10.2 L, [place] % (Auto) 1.9, Eos % (Auto) 0.1, Baso % (Auto) 0.6, Absolute Neuts (auto) 9.7 H, Absolute Lymphs (auto) 1.16, Nucleated RBC % 1.1 03/03/23 03:15: Sodium 136, Potassium 4.2, Chloride 98, Carbon Dioxide 35.0 H, Anion Gap 3 L, BUN 13, Creatinine 0.76, Estim Creat Clear Calc 84.11, Est GFR (MDRD) Af Amer 106, Est GFR (MDRD) Non-Af 88, BUN/Creatinine Ratio 17.2, Obfascv203 H, Calcium 8.8, Total Bilirubin 0.30, AST 15, ALT 20, Alkaline Phosphatase 60, Total Protein 7.2, Albumin 2.6 L, Globulin 4.6 H, Albumin/Globulin Ratio 0.6L 03/03/23 05:43: POC Glucose 243 H 03/03/23 12:55: POC Glucose 365 H Micro: Microbiology 03/02/23 17:20 Wound - Leg, Right Gram Stain - Final 03/02/23 17:20 Wound - Leg, Right Wound Culture - Preliminary GNR non neon molder 03/02/23 18:10 Urine Catheter - Catheter Urine [...] 5:42 EDT Reading Location ID and State: [facility] / [place] Tel , Service support , Physical Exam [...] necrotizing fasciitis of the left groin in [facility] in December 2023 and had debridement [...] DVT treatment Charges/Coding Visit Charges Inpatient E&M: 19533 Subs Hosp L2 03/03/23 1748 <Electronically signed by Ling Neville MD> Ling Neville MD Cosigner Signature (if applicable): CC: ~ Signed [facility] Work Phone: 1(342) 815-825804-03-[address] Sanders [facility] March 03, 2023 10:38am Note Date/Time March 03, 2023 7:11 am [facility] Medical Records Department [address] [place] [address] Progress Note - Vice President Of Sales 03/03/23 0709 MR#: [id number] Acct: [id number] Name: MACARIO WALLACE Rep #:[id number] : [...] of discharge. This note was generated with Easy Voyage dictation software. It may contain incorrectwords, spelling, [...] 77.6 H, Lymph % (Auto) 15.5 L, [place] % (Auto) 3.8, Eos % (Auto) 0.7, [...] 0.30, AST 14 L, ALT 18, Alkaline Wptxmdkbbeh77, Total Protein 7.2, Albumin 2.7 L, Globulin 4.5 H, Albumin/Globulin Ratio 0.6L 03/02/23 14:20: Lactic Acid 2.6 H* 03/02/23 14:20: B-Natriuretic Peptide 68.4 03/02/23 14:24: POC Glucose 250 H 03/02/23 18:00: Troponin I High Sens 29 03/02/23 18:10: Urine Color Yellow, Urine Clarity Clear, Urine pH 6.0, Ur Specific [place] 1.015, Urine Protein 30 H, Urine Glucose [...] 85.4 H, Lymph % (Auto) 10.2 L, [place] % (Auto) 1.9, Eos % (Auto) 0.1, Baso % (Auto) 0.6, Absolute Neuts (auto) 9.7 H, Absolute Lymphs (auto) 1.16, Nucleated RBC % 1.1 04/03/23 03:15: Sodium 136, Potassium 4.2, Chloride 98, Carbon Dioxide 35.0 H, Anion Gap 3 L, BUN 13, Creatinine 0.76, Estim Creat Clear Calc 84.11, Est GFR (MDRD) Af Amer 106, Est GFR (MDRD) Non-Af 88, BUN/Creatinine Ratio 17.2, Iduzsyf229 H, Calcium 8.8, Total Bilirubin 0.30, AST [...] 5:42 EDT Reading Location ID and State: [facility] / [place] Tel , Service support , Physical Exam [...] affect normal Charges/Coding Visit Charges Inpatient E&M: 00125 Subs Hosp L3 03/03/23 1038 <Electronically signed by Ace Sanders DO> Cosigner Signature (if applicable): CC: ~ Signed [facility] Work Phone: [phone]) 494-953704-03-[address] Gill [facility] March 03, 2023 1:57am Note Date/Time March 03, 2023 1:57 am [facility] Medical Records Department [address] [place] [address] Progress Note 03/03/23152 MR#: [id number] Acct: [id number] Name: MACARIO WALLACE Rep #:[id number] : [...] Cosigner Signature (if applicable): CC: ~ Signed [facility] Work Phone: 1(547) 213-508804-02-[address] oBx [facility] March 02, 2023 7:52pm Note Date/Time March 02, 2023 7:50 pm [facility] Medical Records Department [address] [place] [address] Consultation - Vice President Of Sales 03/02/23 1934 MR#: [id number] Acct: [id number] Name: MACARIO WALLACE Rep #:[id number] : [...] empiric antibiotics - Restrict calories to 1200 fanw/day, diabetic diet - Monitor renal function and [...] Thank you for consulting [facility]. Ace Tommy CONTE will follow up with her tomorrow for [...] that these changes are chronic hypoventilatory changes. [facility] Medical History (Updated 03/02/23 @ 19:43 by [...] lozenge 2 mg PO PRN PRN Smoking Bkcmkeavt13/09/23 [History Last Taken 12/08/22] potassium chloride 20 [...] 77.6 H, Lymph % (Auto) 15.5 L, [place] % (Auto) 3.8, Eos % (Auto) 0.7, [...] 0.30, AST 14 L, ALT 18, Alkaline Plcyplfgosl99, Total Protein 7.2, Albumin 2.7 L, Globulin 4.5 H, Albumin/Globulin Ratio 0.6L 03/02/23 14:20: Lactic Acid 2.6 H* 03/02/23 14:20: B-Natriuretic Peptide 68.4 03/02/23 14:24: POC Glucose 250 H 03/02/23 18:00: Troponin I High Sens 29 03/02/23 18:10: Urine Color Yellow, Urine Clarity Clear, Urine pH 6.0, Ur Specific [place] 1.015, Urine Protein 30 H, Urine Glucose [...] 15:24 EDT , Charges/Coding Procedures Hospitalists Procedures: 77115 Critial Care 1st Hr 03/02/231951 <Electronically signed by Fadi Box MD> Cosigner Signature (if applicable): CC: FADUMO Hunter; Dr. Berlin Dumont MD; Dr. Tino Oreilly MD; Dr. Ace Sanders DO; Dr. Fadi Box MD; Dr. Jarrett Villalobos MD~ Signed [facility] Work Phone: 1(804) 488-130104-02-[address] Lange [facility] March 02, 2023 6:09pm Note Date/Time March 02, 2023 6:09 pm [facility] Medical Records Department [address] [place] [address] Progress Note - Hospitalist 03/02/23 1807 MR#: [id number] Acct: [id number] Name: MACARIO WALLACE Rep #:[id number] : [...] Pulse ox is around 90% on 50% JmH3nyvjuxi the BiPAP. Patient overall appears better though her blood gas is not significant improvement over the venous blood gas. I think at this time, we canavoid intubation and continue with the current medical treatment. Discussed with patient's RN. 03/02/231808 <Electronically signed by Faraz Lange DO> Cosigner Signature (if applicable): CC: ~ Signed [facility] Work Phone: 1(858) 930-755004-02-2023 History and physical note Author Dr. Lange [facility] March 02, 2023 5:02pm Note Date/Time March 02, 2023 4:49 pm [facility] Medical Records Department [address] [place] [address] H&P Exam - Hospitalist 03/02/23 1638 MR#: [id number] Acct: [id number] Name: MACARIO WALLACE Rep #:[id number] : [...] and patient received methylprednisolone, ceftriaxone and azithromycin. [facility] Medical History (Updated 03/02/23 @ 16:45 by [...] lozenge 2 mg PO PRN PRN Smoking Mbpifztzu06/09/23 [History Last Taken 12/08/22] potassium chloride 20 [...] 77.6 H, Lymph % (Auto) 15.5 L, [place] % (Auto) 3.8, Eos % (Auto) 0.7, [...] 0.30, AST 14 L, ALT 18, Alkaline Bdmgqperiwg08, Total Protein 7.2, Albumin 2.7 L, Globulin [...] appears to be healing. Reviewed records through [facility] via [employer]: Patient was found to have necrotizing fasciitis [...] on anticoagulation. Charges/Coding Visit Charges Inpatient E&M: 74983 Init Hosp L3 03/02/23 1702 <Electronically signed by Faraz Lange DO> Cosigner Signature (if applicable): CC: Dr. Tino Oreilly MD; Dr. Faraz Lange, DO~ Signed [facility] Work Phone: [phone]) [phone] Kaiser [facility] March 02, 2023 3:43pm Note Date/Time March 02, 2023 2:32 pm [facility] Medical Records Department [address] [place] [address] Emergency Department Summary 03/02/23 MR#: [id number] Acct: [id number] Name: MACARIO WALLACE Rep #:[id number] : [...] lozenge 2 mg PO PRN PRN Smoking Ulokwwrse56/09/23 [History Last Taken 12/08/22] potassium chloride 20 [...] intact bilaterally and no sensory deficits noted Miguel Coma Scale: document GCS findings Spontaneous Obeys [...] 77.6 H Lymph % (Auto) 15.5 L [place] % (Auto) 3.8 Eos % (Auto) 0.7 [...] (Auto) Neut % (Auto) Lymph % (Auto) [place] % (Auto) Eos % (Auto) Baso % [...] George Leiva MD at 15:24 EDT , EKG Initial EKG: Attestation: I personally reviewed and interpreted this EKG as follows: Interpretation: Sinus Rhythm (97. EKG is normal. The MA interval is 132,QRS duration 88 ms, QT duration 358 ms and the axis is normal.) Prior: Unchanged (Prior EKG was dated December 18, 2022) Critical Care Time Critical Care Time: Yes Critical care time (excluding procedures): 30-74 minutes (42), Including time spent: (History, physical, documentation, review of prior records, interpretation of laboratory results initiation of therapy and interpretation ofchest x-ray), Discussing w/Patient &/or Family/Data Administrator, Discussing w/Consultants, Arranging Admission or Transfer and Performing Direct Patient Care at Bedside (Repeat examinations x3) Discharge Plan Dx/Rx/DC Orders Clinical Impression: Acute on chronic respiratory failure with hypercapnia, Type 2 diabetes mellituswith hyperglycemia, Community acquired pneumonia, Acute on chronic respiratory failure with hypoxemia, Acute bronchospasm, Severe sepsis, Acidosis, lactic Disposition Disposition: Acute Care Hospital [facility] What to do if you have Problems For any increased pain, shortness of breath, bleeding, nausea or vomiting, chestpain, or any unexpected problems, contact your Primary Care Provider. Call [facility] ([phone]) or report to the closest Emergency Room. Call 911 if necessary. 03/02/23 1543 <Electronically signed by Jozef Kaiser MD> Cosigner Signature (if applicable): CC: Dr. Tino Oreilly MD ~ Signed [facility] Work Phone: 1(807) 124-104603-30-2023 Miscellaneous Notes* SN Routine - Bonnie Yuen RN - 02/27/2023 3:53 PM EDT SITUATION: Mcc routine visit completed today. other family members [...] that she is having an insurance changeto [place] on 03/01-will need to follow up on [...] (be specific): wound care. documented in this encounterScci [facility]ima03-29-2023 Miscellaneous Notes* Telephone Encounter - Panfilo Oreilly [...] order. Bharat Gardner RN Care Coordination with [place] [facility]. documented in this encounterScci Hospital Lima03-29-2023 Miscellaneous Notes* HH CARE COORDINATION - PER [place] - 02/26/2023 2:30 PM EDT 02/26/23 2;44 PM - 2:47 PM DANCE STUDIO MANAGER called the pt. regarding the travel clerk requested orders for herto get a LANGUAGE ARTS TEACHER to assist with bathing. The pt. stated she did not want a LANGUAGE ARTS TEACHER once a week and wants her Aide hours under Waiver. DANCE STUDIO MANAGER discussed [facility] Dry Press Operator Helper with [facility] on Aging discussed her getting the LANGUAGE ARTS TEACHER until they find anAide under Waiver. The pt. stated her daughter can assist her with bathing. The pt. stated that shereceived a phone call from Elaine Merino regarding they needed the measurement for the lift chair.DANCE STUDIO MANAGER discussed that Brandy was sening the measurements to Elaine and DANCE STUDIO MANAGER could follow-up. The pt. stated Elaine was waiting on an Email with the measurements. The pt. supportive of that. The pt. to call DANCE STUDIO MANAGER with any needs. 02/26/23 2:49 PM - 2:51 PM DANCE STUDIO MANAGER called Brnady Garveypankaj De Paz Dry Press Operator Helper with [facility] on [facility] and left her a message that DANCE STUDIO MANAGER spoke to the pt. and Ludin Pen Or Pencil Assembly Machine Operator messaged the DrSusan regarding the pt. getting a LANGUAGE ARTS TEACHER for bathing assist. The pt. does not want the LANGUAGE ARTS TEACHER and stated her daughter could assist her with bathing. The pt. stated that Elaine Merino called her and needing the measurements for her to get her lift chair. The pt. waiting to get the Aide under Waiver. DANCE STUDIO MANAGER left her name and phone number. documented in this encounterScci Hospital [facility]ima03-28-2023 Miscellaneous Notes* HH CARE COORDINATION - PER [place] - 02/25/2023 2:45 PM EDT 02/25/23 2:49 PM - 2:54 PM DANCE STUDIO MANAGER received a phone call back from Brandy Garveyranken jordan pediatric specialty hospitalsigifredo De Paz Dry Press Operator Helper with [facility] on [facility]. She stated she is following-upwith the regarding if order faxed to a [employer] for the pt. to get a scooter. [...] the pt. to ask about getting a LANGUAGE ARTS TEACHER to assist with bathing until she could get an Aide under Waiver. DANCE STUDIO MANAGER informed Brandy that JORGE LUISWwill talk with the travel clerk regarding a LANGUAGE ARTS TEACHER for the pt. DANCE STUDIO MANAGER will continue to coordinate withSarah as needed. 02/25/23 3:03 PM DANCE STUDIO MANAGER Emailed Bharat Gardner RN Case Manager - Aung, the pt. Macario Wallace is on Waiver and her Waiver Dry Press Operator Helper asked about the pt. getting a LANGUAGE ARTS TEACHER until she would get an Aide under Waiver. They cannot find an Aide for the pt. yet. Thanks, documented in this encounterScci Hospital [facility]ima03-28-2023 Miscellaneous Notes* HH CARE COORDINATION - PER [place] - 02/25/2023 10:00 AM EDT 02/25/23 10:00 AM - 10:06 AM DANCE STUDIO MANAGER called [facility] and spoke to Fabienne Stevens regarding who the pt.'s Waiver Dry Press Operator Helper was and she stated Brandy Ross with [facility] on A[facility] # [phone]. Fabienne stated she could transfer DANCE STUDIO MANAGER to Brandy. DANCE STUDIO MANAGER was transferred and DANCE STUDIO MANAGER left Brandy Ross [facility] Dry Press Operator Helper a message that the pt. was active with [facility] for Nursing. DANCE STUDIO MANAGER stated she was calling to coordinate w pt.'kristyne and her services in the home. The pt. asking about an Aide. power wheelchair and lift chair. DANCE STUDIO MANAGER left her name and phone number for Brandy to call DANCE STUDIO MANAGER back. 02/25/23 10:06 AM - 10:11 AM DANCE STUDIO MANAGER called the pt. regarding DANCE STUDIO MANAGER called her [facility] Waiver Dry Press Operator Helper Brandy Ross and left her a message. The pt. stated that Brandy came to see her yesterday. She stated that Brandy is trying to find her an Aide. DANCE STUDIO MANAGER asked about the power wheelchair and liftchair. The pt. stated Brandy is looking into equipment for her, also. DANCE STUDIO MANAGER asked the pt. if she received Home Delivered Meals and she stated that she did. DANCE STUDIO MANAGER asked the pt. if she had an ER Medical Alert and she stated that Brandy was ordering her one. DANCE STUDIO MANAGER asked the pt. if she was new on Waiver and she stated she has been on Waiver for a couple of months. DANCE STUDIO MANAGER asked the pt. if she had needed transportation to medical appointments. She stated if her daughter does not take her she uses transportationunder her [facility]. DANCE STUDIO MANAGER provided the pt. with her name and phone number to call with anyneeds. DANCE STUDIO MANAGER will follow-up with her. 02/25/[address] Panfilo Oreilly - DANCE STUDIO MANAGER called the pt. regarding DANCE STUDIO MANAGER called her [facility] Dry Press Operator Helper Brandy Ross and left her a message. The pt. stated that Brandy cameto see her yesterday. She stated that Brandy is trying to find her an Aide. DANCE STUDIO MANAGER asked about the power wheelchair and lift chair. The pt. stated Brandy is looking into equipment for her, also. DANCE STUDIO MANAGER askedthe pt. if she received Home Delivered Meals and she stated that she did. DANCE STUDIO MANAGER asked the pt. if she had an ER Medical Alert and she stated that Brandy was ordering her one. DANCE STUDIO MANAGER asked the pt. if she wasnew on Waiver and she stated she has been on Waiver for a couple of months. DANCE STUDIO MANAGER asked the pt. if she had needed transportation to medical appointments. She stated if her daughter does not take her she uses transportation under her [facility]. DANCE STUDIO MANAGER provided the pt. with her name and phone number to call with any needs. DANCE STUDIO MANAGER will follow-up with her. Brandy Ross [facility] Dry Press Operator Helper with [facility] on Aging [phone]. Thank You, documented in this encounterScci Hospital [facility]ima03-27-2023 Miscellaneous Notes* Telephone Encounter - Panfilo Oreilly MD - 02/24/2023 1:24 PM EDT Reviewed. Keep appointment as scheduled. * Telephone Encounter - Georgina Samayoa RN - 02/24/2023 1:13 PM EDT Patient called and notified of results and provider instructions. Patient set up appointment on 02/26/2023. Please review and advise, Georgina Samayoa RN * Telephone Encounter - Lula [...] 1 week of discharge. documented in this encounterScci Hospital [facility]ima03-27-2023 Miscellaneous Notes* Telephone Encounter - Panfilo Oreilly MD - 02/24/2023 10:03 AM EDT Reviewed. * Telephone Encounter - Keyonna Gross LPN - 02/24/2023 9:34 AM EDT DONELL: Brandy, Dry Press Operator Helper with [facility] called to let you know pt returned home on 02-20-23 from [facility] and has skilled care thru [facility] for wound care management. Keyonna Gross LPN documented in this encounterScci Hospital [facility]ima03-26-2023 Miscellaneous Notes* SN SOC - Zahra Jackson RN - 02/23/2023 12:52 PM EDT SITUATION: Mcc SOC visit completed today. Friend and brother [...] Need for additional services: Patient agreeable to BALLING HEAD TENDER referrals. Additional concerns to be followed up on: NONE Next visit to focus on (be specific): woudn care, DM, oxygen, edema documented in this encounterScci Hospital [facility]ima03-24-2023 History of Present illness Narrative* Marixa Navarro RN - 02/21/2023 3:10 PM EDT TRANSITIONAL CARE MANAGEMENT (TCM) COMMUNITY MONITORING PROGRAM Provider Action/FYI: Navigation Team Please assist with scheduling TCM Hospital discharge follow up. TCM eligible through 03/06. Thank you [facility]- Friday Wound care: L groin wash [...] to discharge instructions. SUMMARY: Pt discharged from [facility] on 02/20/23. Admitted for: Cellulitis Contact made with patient: Yes Hi my name is Marixa Navarro RN and I am calling from the [facility] on behalf of your PCP,Panfilo Oreilly MD [...] speak with a social work steam plant records clerk to help give you support for any [...] I will send your request to a director of front office who will contact and assist you with that appointment. This will give you an opportunity to ask any questions or address any concerns youmay have with your PCP. Inform the patient that if they have any questions or concerns prior to that appointment, to call their PCP's office right away. ACTION TAKEN: Patient desires an appointment - Routed to [facility] [[id number]] for schedulingtelehealth visit (telephonic, virtual visit, or [...] Home Visit Referral Source of Stratification: [facility] Admission Status: Discharged Readmission Risk Score: [...] upcoming future appts SUMMARY: Pt discharged from [facility] on 02/20/23. Admitted for: Cellulitis SUMMARY OF WHAT HAPPENED WHILE I WAS IN THE HOSPITAL: Ms. Wallace presented to an outside facility with purulent drainage from her wound. WBC was 11, and CT showed left upper thigh thickening and ulceration with small amount of residual subcutaneous gas. She was transferred to [facility] [...] ended Carlos Cline RN documented in this encounterScci Hospital [facility]ima03-24-2023 Miscellaneous Notes* Telephone Encounter - Mehrdad Michael RN - 02/21/2023 11:11 AM EDT Robert from [facility] called and reports they received the orders and demographic sheet. Faxing over last OV note to fax # [phone]. documented in this encounterScci Hospital [facility]ima03-24-2023 Miscellaneous Notes* Telephone Encounter - Panfilo Oreilly [...] care clinicians may also obtain orders from [facility] Virtualist Providers Thank you and we would be happy to answer any questions. Geeta Munguia LPN 02/20/2023 3:40 PM documented in this encounterScci Hospital [facility]ima03-24-2023 History of Present illness Narrative* Annie Borges [facility] - 02/21/2023 8:38 AM EDT TRANSITION CARE [...] . Summary: -Pt discharged from [facility] on 02/20/23. -Medication review done: Partial medication [...] residual subcutaneous gas. She was transferred to [facility] [...] by mouth once daily. blood sugar diagnostic ([employer] PRECISION JONAH STRIPS) test strip To use [...] mouth once daily. flash glucose scanning reader (BeiZSTYLE BAO 14 DAY READER) 1 Device four times daily. flash glucose sensor (BeiZSTYLE BAO 14 DAY SENSOR) kit 1 Each [...] 50 points >150; TDD 150 units) Insulin [place], Disposable, (BD ULTRA-FINE GABINO PEN NEEDLE) 32 [...] for 10 doses. E-rx to DDM Confirms leaf size picker, taking as directed Per discharge summary: Ms. Wallace was started on antibiotics for cellulitis and will continue on Bactrim and should continue a 5 day course at discharge WALKER ROLLATOR SEAT WITH 6 WHEELS - RED Patient requires large seat Preferred pharmacy: e- [facility] [address] - [place] [address] - [address] [facility] [phone] [address] [facility] [id number] [place] [address] - [address] [place] [address] [address] [facility] [id number] e- [id number] [place] [address] - [address] [facility] [phone] [address] [facility] [id number] [facility] [address] [place], [place] [id number] Estimated Creatinine Clearance: 196.2 mL/min (based on [...] 21, 2023 8:39 AM documented in this encounterScci Hospital [facility]ima03-23-2023 [facility]03-23-2023 Miscellaneous Notes* Telephone Encounter - Mariam Meredith RN - 02/20/2023 9:52 AM EDT Carolee- [facility]- nurse healthcare manager- returned call and reports she is pursuing an aide through a waiver, which is totally separate from skilled care. Reports ELVIN Stern at [facility], along with the ROPING TENDER, will be talking to patient today about placement into a assisted facility for wound care short term. Carolee asking pcp office, when you get the discharge summary from [facility], please fax to her at fax # [phone]. * Telephone Encounter - Lula Sarmiento LPN - 02/20/2023 8:19 AM EDT Phoned [facility] and they advised Carolee from [facility] was trying to find an aide that could see patient daily. [facility] advised they are unable to take patient back. -Phoned Carolee with [facility] and left message for her to return call to see what POC will be since [facility] not willing to take patient back. * Telephone Encounter - Sandra Potts LPN - 02/19/2023 12:03 PM EDT Call placed to Carolee at [facility] x2 and both times phone would not ring, no sound. Please try back later. Sandra Potts LPN * Telephone Encounter - Panfilo Oreilly MD - 02/19/2023 11:27 AM EDT Patient is currently admitted for necrotizing infection in her groin. Is this in preparation for her discharge? Typically they set patient up with [facility] before discharge. * Telephone Encounter - Diana Mackenzie LPN - 02/19/2023 10:01 AM EDT Carolee from [facility] calling asking for orders for Home health Aide for the patient. Patient currently has assisted with [facility], phone number is [phone]. Can fax order to [phone]. Pending order needs diagnosis. Please advise documented in this encounterScci Hospital [facility]ima03-22-2023 Miscellaneous Notes* Telephone Encounter - Sandra Potts LPN - 02/19/2023 4:14 PM EDT Tried reaching patient, unable to leave message due to VM not being setup. Sandra Potts LPN * [...] after discharge this time. documented in this encounterScci Hospital [facility]03-21-[address] Ornelas [facility] February 18, 2023 10:57pm Note Date/Time February 18, 2023 5:4 4pm [facility] Medical Records Department [address] [place] [address] Emergency Department Summary 02/18/23 MR#: [id number] Acct: [id number] Name: MACARIO WALLACE Rep #:[id number] : 1975 47 From: Deejay Ornelas MD PCP: Dr. Tino Oreilly MD Status :REG ER Location: ED HPI History of Present Illness Chief Complaint: Abscess Informant: patient Narrative Narrative: Patient presents with worsening abscess. This is a an obese diabetic female who developed abscess in the groin. This hadsurgery at [facility] about 4 weeks ago. Several days [...] She has not yet contacted her surgeon. [facility] Medical History Abscess Abscess of vulva KERRY [...] lozenge 2 mg PO PRN PRN Smoking Krwwwgguu74/09/23 [History Last Taken 12/08/22] potassium chloride 20 [...] difficult. She has been seen up at [facility] Dr. Johnson. She has had surgery twice [...] 75.7 H Lymph % (Auto) 17.3 L [place] % (Auto) 4.4 Eos % (Auto) 1.3 [...] (Auto) Neut % (Auto) Lymph % (Auto) [place] % (Auto) Eos % (Auto) Baso % [...] 80 mg tablet 100 mg PO QHS ljlujocf-lrxd-PU-calcium-mins 1 EACH tablet 1 ea PO DAILY [...] Disposition Disposition: Acute Care Hospital Discharge Location: [facility] What to do if you have Problems For any increased pain, shortness of breath, bleeding, nausea or vomiting, chestpain, or any unexpected problems, contact your Primary Care Provider. Call [facility] ([phone]) or report to the closest Emergency Room. Call 911 if necessary. 02/18/23 8475 <Electronically signed by Deejay Ornelas MD> Cosigner Signature (if applicable): CC: Dr. Tino Oreilly MD ~ Signed [facility] Work Phone: [phone] 401-461903-21-2023 History of Present illness Narrative* Panfilo Oreilly MD - 02/18/2023 11:08 AM EDT Chief Complaint No chief complaint on file. HPI Macario Wallace is a 47 year old female who presents here today for Hospital Discharge Follow up. Accompanied today by daughter and grand daughter. Patient admitted to [facility] from 12/25 to 01/01 and then again [...] Care ordered as pt was active with [facility] and [facility] (prior [...] in ~ 1 weeks time. 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 Left, small lesion on CT Anxiety Cholecystitis s/p cholecystectomy Diabetes mellitus without mention of complication Diabetic neuropathy ([facility]) Seeing Neurology Diastolic heart failure ([facility]) GERD (gastroesophageal reflux disease) History of abnormal cervical Pap smear History of tobacco use Hyperlipidemia Insomnia Microalbuminuria Morbid obesity ([facility]) Narcotic abuse ([facility]) Non-STEMI (non-ST elevated myocardial infarction) ([facility]) 2/2 respiratory illness LOGAN (obstructive sleep apnea) using CPAP, Dr. Dumont Pulmonary embolism ([facility]) Seasonal allergies Unspecified essential hypertension Previous [...] 100 mg BID flash glucose scanning reader (BeiZSTYLE BAO 14 DAY READER) 1 Device four [...] wheezing/shortness of breath. Use over 5-15minutes. Insulin [place], Disposable, (BD ULTRA-FINE GABINO PEN NEEDLE) 32 [...] which included preparing to see the patient, [id number]-[id number] patient care, completing clinical documentation, obtaining and/or reviewing separately obtained history, performing a medically appropriate examination, counseling and educating the pat ient/family/caregiver, and ordering medications, tests, or procedures. Panfilo Oreilly MD documented in this encounterScci Hospital [facility]ima03-10-2023 Miscellaneous Notes* Telephone Encounter - Sandra Potts LPN - 02/07/2023 2:45 PM EST Patient notified. Voices understanding. Sandra Potts LPN * Telephone Encounter - Panfilo Oreilly MD - 02/07/2023 11:44 AM EST Referral for wound care placed to help with this wound. Please notify patient. Keep f/u as scheduled. * Telephone Encounter - Mariam Meredith RN - 02/07/2023 10:50 AM EST Shaneka-nurse- [facility]- returned call and given provider's message with [...] 10:21 AM EST [facility] to call [facility]CP office for message below. Tri Sorensen RN * Telephone Encounter - Panfilo Oreilly MD - 02/07/2023 8:50 AM EST Agree with wound care recommendations. If they fax and order I will sign it. Is patient following up with wound care now? * Telephone Encounter - Mariam Meredith RN - 02/07/2023 8:35 AM EST Shaneka- nurse- [facility], reports patient has a stage II pressure sore on outer labia/inner thigh/groin area. Asking for wound dressing orders. Shaneka recommends medi honey, calcium alginate to wound, then dry sterile dressing, change daily. Patient would have to change, on days nurses do not come. Asking provider to write order and fax order to fax # [phone]. documented in this encounterScci Hospital [facility]ima03-07-2023 Miscellaneous Notes* Telephone Encounter - Tri Sorensen RN - 02/04/2023 10:28 AM EST Josie, a [facility] nurse with [facility] calling to request Physical Therapy evaluation order for patient. States patient recently moved into a trailer and is having some difficulty getting around and also difficulty with endurance. Reports patient is on oxygen. Please call Josie back at [phone]. Thank you. documented in this encounterScci Hospital [facility]03-06-2023 History of Present illness Narrative* Gayle Fry - 02/03/2023 2:30 PM EST Per [facility] Eligibility report: patient meets PIRC criteria: MV >= 72 hours MICU stay. Discharge date prior to 01/06/2023 (01/30/2023 dashboard update); not contacted/enrolled in the PIRC Program for this 12/25-01/01/2023 [place] admission. PIR Enrollment Status [facility]C Call Attempt None Enrolled in PIRC Program? No - Other documented in this [facility]03-06-2023 Miscellaneous Notes* Telephone Encounter - [...] patient. Irena Bland LPN documented in this [facility]03-06-2023 Miscellaneous Notes* Telephone Encounter - Lula Sarmiento LPN - 02/03/2023 8:59 AM EST Phoned patient to reschedule 40 min Hosp follow up appt as provider unavailable today. Patient's VMnot set up and unable to leave a message. Please be sure to reschedule for 40 min visit. documented in this encounterScci Hospital [facility]03-02-2023 Miscellaneous Notes* Telephone Encounter - Lula Sarmiento [...] a 20 min slot. documented in this encounterScci Hospital [facility]ima02-28-2023 History of Present illness Narrative* Raquel Payne RN - 01/28/2023 2:49 PM EST TRANSITION CARE MANAGEMENT (TCM) FOLLOW-UP NOTE Provider Action/FYI Called for TCM. No answer at this time. Voicemail box not set up, unable to leave message. PCP 01/24 cancelled- rescheduled to 02/03 Patient identified by name and date of : NO- no answer Summary: Pt discharged from [facility] on 01/16/23. Admitted for: Purulent drainage from wounds. Concerns: No answer, unable to leave message Manager Human Resources plan for next outreach: Will follow up next week [employer] Education Ordered -: No Signature Raquel Payne RN January 28, 2023 documented in this encounterScci Hospital [facility]ima02-21-2023 Miscellaneous Notes* Telephone Encounter - Sandra Potts LPN - 01/21/2023 10:36 AM EST Zhane notified of providers message. Sandra Potts LPN * Telephone Encounter - Panfilo Oreilly MD - 01/21/2023 10:00 AM EST OK to resume assisted. Keep f/u appointment as scheduled. * Telephone Encounter - Georgina Samayoa RN - 01/21/2023 9:50 AM EST Zhane from [facility] calls to report that patient discharged from hospital on 01/16/2023. Zhane asking if it is ok to resume assisted services with patient tomorrow 01/22/2023. Please review and advise, Georgina Samayoa RN documented in this encounterScci Hospital [facility]ima02-20-2023 Miscellaneous Notes* Telephone Encounter - Loretta Perse LPN - 01/20/2023 4:10 PM EST Pt given message, states she can't take ibuprofen and will continue with the tylenol. Margarita TOWNSEND * Telephone Encounter - Loretta Peres LPN - 01/20/2023 3:36 PM EST I&D tay groin abscesses on 11/13/23- pt requesting refill on oxycodone for dressing changes. Uses pharmacy listed in chart. Margarita TOWNSEND documented in this encounterScci Hospital [facility]ima02-17-2023 History of Present illness Narrative* Brissa Kilpatrick, [facility] - 01/17/2023 12:40 PM EST TRANSITION CARE [...] . Summary: -Pt discharged from [facility] on 01/16/23. -Medication review done: Partial medication [...] Care ordered as pt was active with [facility] and [facility] [...] screening LABS AND PROCEDURES PENDING AT DISCHARGE: Medication Reconciliation: Legend: Stopped, New, Changed, Added [...] Date Value 11/11/2022 10.1 12/12/2021 10.0 Insulin [place], Disposable, (BD ULTRA-FINE GABINO PEN NEEDLE) 32 [...] days. Taking as prescribed without any issues [facility] - Dispensed potassium chloride 20 [...] days. Taking as prescribed without any issues [facility] - Dispensed WALKER ROLLATOR SEAT WITH 6 WHEELS - RED Patient requires large seat Preferred pharmacy: [facility] [address] - [place] [address] - [address] [facility] [phone] [address] [facility] [address] [facility] [address] [place] [address] - [address] [facility] [phone] [address] [facility] [phone] [id number] [place] [address] - [facility] - [id number] [place] [id number] [facility] [address] [address] Estimated Creatinine Clearance: 124.1 mL/min (based on SCr of 0.95 mg/dL). Estimated Glomerular Filtration Rate (mL/min/1.73m ) Date Value 01/16/2023 75 eGFR- (no units) Date Value 01/23/2022 >60 Additional follow up: Next 5 Appointments None Interventions Made: None Pharmacist Recommendations Made None Care Coordination: None at this time Time spent on patient: 15-30 minutes Brissa Kilpatrick RPh January 17, 2023 12:59 PM documented in this encounterScci Hospital [facility]ima02-16-2023 Miscellaneous Notes* Telephone Encounter - Panfilo Oreilly MD - 01/16/2023 9:41 AM EST Reviewed and agree. * Telephone Encounter - Georgina Samayoa RN - 01/15/2023 4:48 PM EST Carolee from [facility] calls and states that patient was directly admitted by her surgeon after appointment on 01/13/2023. Patient currently is in [facility]. When patient gets discharged askingfor discharge paperwork to me faxed to [phone]. Georgina Samayoa RN documented in this encounterScci Hospital [facility]ima02-16-2023 [facility]02-15-2023 [facility]02-14-2023 [facility]02-14-2023 Miscellaneous Notes* Telephone Encounter - Lula Sarmiento [...] unable to leave message. documented in this encounterScci Hospital [facility]ima02-14-2023 [facility]02-14-2023 History of Present illness Narrative* Mimi Crowley RN - 01/14/2023 8:16 AM EST TRANSITION CARE MANAGEMENT (TCM) FOLLOW-UP NOTE Provider Action/FYI Chart reviewed. Pt readmitted to [facility] 01/13/23 for perineal wound infection. Name removed from Care Team d/t readmission. Signature Mimi Crowley RN January 14, 2023 documented in this encounterScci Hospital [facility]ima02-13-2023 [facility]02-13-2023 History of Past illness Narrative* Problem Noted Date Resolved Date Necrotizing fasciitis 01/13/2023 01/16/2023 Overview: Pt did not have necrotizing fasciitis during this current hospitalization. Acute cholecystitis 11/06/2007 11/20/2021 documented as of this encounter (statuses as of 01/16/2023) [facility] History of Past illness Narrative* Problem Noted Date Resolved Date Necrotizing fasciitis 01/13/2023 01/16/2023 Overview: Pt did not have necrotizing fasciitis during this current hospitalization. Acute cholecystitis 11/06/2007 11/20/2021 documented as of this encounter (statuses as of 01/17/2023) [facility] History of Past illness Narrative* Problem Noted Date Resolved Date Necrotizing fasciitis 01/13/2023 01/16/2023 Overview: Pt did not have necrotizing fasciitis during this current hospitalization. Acute cholecystitis 11/06/2007 11/20/2021 documented as of this encounter (statuses as of 01/21/2023) [facility] of Past illness Narrative* Problem Noted Date Resolved Date Necrotizing fasciitis 01/13/2023 01/16/2023 Overview: Pt did not have necrotizing fasciitis during this current hospitalization. Acute cholecystitis 11/06/2007 11/20/2021 documented as of this encounter (statuses as of 01/21/2023) [facility] of Past illness Narrative* Problem Noted Date Resolved Date Necrotizing fasciitis 01/13/2023 01/16/2023 Overview: Pt did not have necrotizing fasciitis during this current hospitalization. Acute cholecystitis 11/06/2007 11/20/2021 documented as of this encounter (statuses as of 01/28/2023) [address] History of Past illness Narrative* Problem Noted Date Resolved Date Necrotizing fasciitis 01/13/2023 01/16/2023 Overview: Pt did not have necrotizing fasciitis during this current hospitalization. Acute cholecystitis 11/06/2007 11/20/2021 documented as of this encounter (statuses as of 01/30/2023) [address] History of Past illness Narrative* Problem Noted Date Resolved Date Necrotizing fasciitis 01/13/2023 01/16/2023 Overview: Pt did not have necrotizing fasciitis during this current hospitalization. Acute cholecystitis 11/06/2007 11/20/2021 documented as of this encounter (statuses as of 02/03/2023) [address] History of Past illness Narrative* Problem Noted Date Resolved Date Necrotizing fasciitis 01/13/2023 01/16/2023 Overview: Pt did not have necrotizing fasciitis during this current hospitalization. Acute cholecystitis 11/06/2007 11/20/2021 documented as of this encounter (statuses as of 02/03/2023) [address] History of Past illness Narrative* Problem Noted Date Resolved Date Necrotizing fasciitis 01/13/2023 01/16/2023 Overview: Pt did not have necrotizing fasciitis during this current hospitalization. Acute cholecystitis 11/06/2007 11/20/2021 documented as of this encounter (statuses as of 02/20/2023) [address] History of Past illness Narrative* Problem Noted Date Resolved Date Necrotizing fasciitis 01/13/2023 01/16/2023 Overview: Pt did not have necrotizing fasciitis during this current hospitalization. Acute cholecystitis 11/06/2007 11/20/2021 documented as of this encounter (statuses as of 02/21/2023) [address]23 History of Past illness Narrative* Problem Noted Date Resolved Date Necrotizing fasciitis 01/13/2023 01/16/2023 Overview: Pt did not have necrotizing fasciitis during this current hospitalization. Acute cholecystitis 11/06/2007 11/20/2021 documented as of this encounter (statuses as of 02/21/2023) [address] History of Past illness Narrative* Problem Noted Date Resolved Date Necrotizing fasciitis 01/13/2023 01/16/2023 Overview: Pt did not have necrotizing fasciitis during this current hospitalization. Acute cholecystitis 11/06/2007 11/20/2021 documented as of this encounter (statuses as of 02/21/2023) [address]23 History of Past illness Narrative* Problem Noted Date Resolved Date Necrotizing fasciitis 01/13/2023 01/16/2023 Overview: Pt did not have necrotizing fasciitis during this current hospitalization. Acute cholecystitis 11/06/2007 11/20/2021 documented as of this encounter (statuses as of 02/24/2023) [address] History of Past illness Narrative* Problem Noted Date Resolved Date Necrotizing fasciitis 01/13/2023 01/16/2023 Overview: Pt did not have necrotizing fasciitis during this current hospitalization. Acute cholecystitis 11/06/2007 11/20/2021 documented as of this encounter (statuses as of 02/25/2023) [address]23 History of Past illness Narrative* Problem Noted Date Resolved Date Necrotizing fasciitis 01/13/2023 01/16/2023 Overview: Pt did not have necrotizing fasciitis during this current hospitalization. Acute cholecystitis 11/06/2007 11/20/2021 documented as of this encounter (statuses as of 02/25/2023) [address]23 History of Past illness Narrative* Problem Noted Date Resolved Date Necrotizing fasciitis 01/13/2023 01/16/2023 Overview: Pt did not have necrotizing fasciitis during this current hospitalization. Acute cholecystitis 11/06/2007 11/20/2021 documented as of this encounter (statuses as of 02/26/2023) [address]23 History of Past illness Narrative* Problem Noted Date Resolved Date Necrotizing fasciitis 01/13/2023 01/16/2023 Overview: Pt did not have necrotizing fasciitis during this current hospitalization. Acute cholecystitis 11/06/2007 11/20/2021 documented as of this encounter (statuses as of 02/26/2023) [address] History of Past illness Narrative* Problem Noted Date Resolved Date Necrotizing fasciitis 01/13/2023 01/16/2023 Overview: Pt did not have necrotizing fasciitis during this current hospitalization. Acute cholecystitis 11/06/2007 11/20/2021 documented as of this encounter (statuses as of 03/03/2023) [address]23 History of Past illness Narrative* Problem Noted Date Resolved Date Necrotizing fasciitis 01/13/2023 01/16/2023 Overview: Pt did not have necrotizing fasciitis during this current hospitalization. Acute cholecystitis 11/06/2007 11/20/2021 documented as of this encounter (statuses as of 03/03/2023) [address]23 History of Past illness Narrative* Problem Noted Date Resolved Date Necrotizing fasciitis 01/13/2023 01/16/2023 Overview: Pt did not have necrotizing fasciitis during this current hospitalization. Acute cholecystitis 11/06/2007 11/20/2021 documented as of this encounter (statuses as of 03/04/2023) [place] [address] History of Past illness Narrative* Problem Noted Date Resolved Date Necrotizing fasciitis 01/13/2023 01/16/2023 Overview: Pt did not have necrotizing fasciitis during this current hospitalization. Acute cholecystitis 11/06/2007 11/20/2021 documented as of this encounter (statuses as of 03/05/2023) [address]23 History of Past illness Narrative* Problem Noted Date Resolved Date Necrotizing fasciitis 01/13/2023 01/16/2023 Overview: Pt did not have necrotizing fasciitis during this current hospitalization. Acute cholecystitis 11/06/2007 11/20/2021 documented as of this encounter (statuses as of 03/05/2023) [address] History of Past illness Narrative* Problem Noted Date Resolved Date Necrotizing fasciitis 01/13/2023 01/16/2023 Overview: Pt did not have necrotizing fasciitis during this current hospitalization. Acute cholecystitis 11/06/2007 11/20/2021 documented as of this encounter (statuses as of 03/05/2023) [address]23 History of Past illness Narrative* Problem Noted Date Resolved Date Necrotizing fasciitis 01/13/2023 01/16/2023 Overview: Pt did not have necrotizing fasciitis during this current hospitalization. Acute cholecystitis 11/06/2007 11/20/2021 documented as of this encounter (statuses as of 03/07/2023) [address] History of Past illness Narrative* Problem Noted Date Resolved Date Necrotizing fasciitis 01/13/2023 01/16/2023 Overview: Pt did not have necrotizing fasciitis during this current hospitalization. Acute cholecystitis 11/06/2007 11/20/2021 documented as of this encounter (statuses as of 03/07/2023) [address]23 History of Past illness Narrative* Problem Noted Date Resolved Date Necrotizing fasciitis 01/13/2023 01/16/2023 Overview: Pt did not have necrotizing fasciitis during this current hospitalization. Acute cholecystitis 11/06/2007 11/20/2021 documented as of this encounter (statuses as of 03/08/2023) [address]23 History of Past illness Narrative* Problem Noted Date Resolved Date Necrotizing fasciitis 01/13/2023 01/16/2023 Overview: Pt did not have necrotizing fasciitis during this current hospitalization. Acute cholecystitis 11/06/2007 11/20/2021 documented as of this encounter (statuses as of 03/08/2023) [address]23 History of Past illness Narrative* Problem Noted Date Resolved Date Necrotizing fasciitis 01/13/2023 01/16/2023 Overview: Pt did not have necrotizing fasciitis during this current hospitalization. Acute cholecystitis 11/06/2007 11/20/2021 documented as of this encounter (statuses as of 03/09/2023) [address] History of Past illness Narrative* Problem Noted Date Resolved Date Necrotizing fasciitis 01/13/2023 01/16/2023 Overview: Pt did not have necrotizing fasciitis during this current hospitalization. Acute cholecystitis 11/06/2007 11/20/2021 documented as of this encounter (statuses as of 03/11/2023) [address]23 History of Past illness Narrative* Problem Noted Date Resolved Date Necrotizing fasciitis 01/13/2023 01/16/2023 Overview: Pt did not have necrotizing fasciitis during this current hospitalization. Acute cholecystitis 11/06/2007 11/20/2021 documented as of this encounter (statuses as of 03/12/2023) [address]23 History of Past illness Narrative* Problem Noted Date Resolved Date Necrotizing fasciitis 01/13/2023 01/16/2023 Overview: Pt did not have necrotizing fasciitis during this current hospitalization. Acute cholecystitis 11/06/2007 11/20/2021 documented as of this encounter (statuses as of 03/13/2023) [address]23 History of Past illness Narrative* Problem Noted Date Resolved Date Necrotizing fasciitis 01/13/2023 01/16/2023 Overview: Pt did not have necrotizing fasciitis during this current hospitalization. Acute cholecystitis 11/06/2007 11/20/2021 documented as of this encounter (statuses as of 03/13/2023) [address]23 History of Past illness Narrative* Problem Noted Date Resolved Date Necrotizing fasciitis 01/13/2023 01/16/2023 Overview: Pt did not have necrotizing fasciitis during this current hospitalization. Acute cholecystitis 11/06/2007 11/20/2021 documented as of this encounter (statuses as of 03/15/2023) [address]23 History of Past illness Narrative* Problem Noted Date Resolved Date Necrotizing fasciitis 01/13/2023 01/16/2023 Overview: Pt did not have necrotizing fasciitis during this current hospitalization. Acute cholecystitis 11/06/2007 11/20/2021 documented as of this encounter (statuses as of 03/20/2023) [address]23 History of Past illness Narrative* Problem Noted Date Resolved Date Necrotizing fasciitis 01/13/2023 01/16/2023 Overview: Pt did not have necrotizing fasciitis during this current hospitalization. Acute cholecystitis 11/06/2007 11/20/2021 documented as of this encounter (statuses as of 03/23/2023) [address]-2023 History of Past illness Narrative* Problem Noted Date Resolved Date Necrotizing fasciitis 01/13/2023 01/16/2023 Overview: Pt did not have necrotizing fasciitis during this current hospitalization. Acute cholecystitis 11/06/2007 11/20/2021 documented as of this encounter (statuses as of 03/27/2023) [address]-2023 History of Past illness Narrative* Problem Noted Date Resolved Date Necrotizing fasciitis 01/13/2023 01/16/2023 Overview: Pt did not have necrotizing fasciitis during this current hospitalization. Acute cholecystitis 11/06/2007 11/20/2021 documented as of this encounter (statuses as of 03/27/2023) [address]-2023 History of Past illness Narrative* Problem Noted Date Resolved Date Necrotizing fasciitis 01/13/2023 01/16/2023 Overview: Pt did not have necrotizing fasciitis during this current hospitalization. Acute cholecystitis 11/06/2007 11/20/2021 documented as of this encounter (statuses as of 03/27/2023) [facility]-13-2023 History of Past illness Narrative* Problem Noted Date Resolved Date Necrotizing fasciitis 01/13/2023 01/16/2023 Overview: Pt did not have necrotizing fasciitis during this current hospitalization. Acute cholecystitis 11/06/2007 11/20/2021 documented as of this encounter (statuses as of 03/28/2023) [address]-2023 History of Past illness Narrative* Problem Noted Date Resolved Date Necrotizing fasciitis 01/13/2023 01/16/2023 Overview: Pt did not have necrotizing fasciitis during this current hospitalization. Acute cholecystitis 11/06/2007 11/20/2021 documented as of this encounter (statuses as of 04/03/2023) [address]-2023 History of Past illness Narrative* Problem Noted Date Resolved Date Necrotizing fasciitis 01/13/2023 01/16/2023 Overview: Pt did not have necrotizing fasciitis during this current hospitalization. Acute cholecystitis 11/06/2007 11/20/2021 documented as of this encounter (statuses as of 04/10/2023) [place] [address] History of Past illness Narrative* Problem Noted Date Resolved Date Necrotizing fasciitis 01/13/2023 01/16/2023 Overview: Pt did not have necrotizing fasciitis during this current hospitalization. Acute cholecystitis 11/06/2007 11/20/2021 documented as of this encounter (statuses as of 04/26/2023) [address]23 History of Past illness Narrative* Problem Noted Date Resolved Date Necrotizing fasciitis 01/13/2023 01/16/2023 Overview: Pt did not have necrotizing fasciitis during this current hospitalization. Acute cholecystitis 11/06/2007 11/20/2021 documented as of this encounter (statuses as of 04/26/2023) [address]23 History of Past illness Narrative* Problem Noted Date Resolved Date Necrotizing fasciitis 01/13/2023 01/16/2023 Overview: Pt did not have necrotizing fasciitis during this current hospitalization. Acute cholecystitis 11/06/2007 11/20/2021 documented as of this encounter (statuses as of 04/29/2023) [address]23 History of Past illness Narrative* Problem Noted Date Resolved Date Necrotizing fasciitis 01/13/2023 01/16/2023 Overview: Pt did not have necrotizing fasciitis during this current hospitalization. Acute cholecystitis 11/06/2007 11/20/2021 documented as of this encounter (statuses as of 04/29/2023) [address]23 History of Past illness Narrative* Problem Noted Date Resolved Date Necrotizing fasciitis 01/13/2023 01/16/2023 Overview: Pt did not have necrotizing fasciitis during this current hospitalization. Acute cholecystitis 11/06/2007 11/20/2021 documented as of this encounter (statuses as of 05/01/2023) [facility]-13-2023 History of Past illness Narrative* Problem Noted Date Resolved Date Necrotizing fasciitis 01/13/2023 01/16/2023 Overview: Pt did not have necrotizing fasciitis during this current hospitalization. Acute cholecystitis 11/06/2007 11/20/2021 documented as of this encounter (statuses as of 05/01/2023) [address]13-[address]23 History of Past illness Narrative* Problem Noted Date Resolved Date Necrotizing fasciitis 01/13/2023 01/16/2023 Overview: Pt did not have necrotizing fasciitis during this current hospitalization. Acute cholecystitis 11/06/2007 11/20/2021 documented as of this encounter (statuses as of 05/02/2023) [address]23 History of Past illness Narrative* Problem Noted Date Resolved Date Necrotizing fasciitis 01/13/2023 01/16/2023 Overview: Pt did not have necrotizing fasciitis during this current hospitalization. Acute cholecystitis 11/06/2007 11/20/2021 documented as of this encounter (statuses as of 05/02/2023) [address]23 History of Past illness Narrative* Problem Noted Date Resolved Date Necrotizing fasciitis 01/13/2023 01/16/2023 Overview: Pt did not have necrotizing fasciitis during this current hospitalization. Acute cholecystitis 11/06/2007 11/20/2021 documented as of this encounter (statuses as of 05/05/2023) [address]13-[address]23 History of Past illness Narrative* Problem Noted Date Resolved Date Necrotizing fasciitis 01/13/2023 01/16/2023 Overview: Pt did not have necrotizing fasciitis during this current hospitalization. Sepsis 12/25/2022 05/09/2023 Acute cholecystitis 11/06/2007 11/20/2021 documented as of this encounter (statuses as of 05/15/2023) [address]13-[address]23 History of Past illness Narrative* Problem Noted Date Resolved Date Necrotizing fasciitis 01/13/2023 01/16/2023 Overview: Pt did not have necrotizing fasciitis during this current hospitalization. Sepsis 12/25/2022 05/09/2023 Acute cholecystitis 11/06/2007 11/20/2021 documented as of this encounter (statuses as of 05/23/2023) [address]13-2023 History of Past illness Narrative* Problem Noted Date Resolved Date Necrotizing fasciitis 01/13/2023 01/16/2023 Overview: Pt did not have necrotizing fasciitis during this current hospitalization. Sepsis 12/25/2022 05/09/2023 Acute cholecystitis 11/06/2007 11/20/2021 documented as of this encounter (statuses as of 05/23/2023) [place] [address] History of Past illness Narrative* Problem Noted Date Resolved Date Necrotizing fasciitis 01/13/2023 01/16/2023 Overview: Pt did not have necrotizing fasciitis during this current hospitalization. Sepsis 12/25/2022 05/09/2023 Acute cholecystitis 11/06/2007 11/20/2021 documented as of this encounter (statuses as of 05/29/2023) [address]13-2023 History of Past illness Narrative* Problem Noted Date Resolved Date Necrotizing fasciitis 01/13/2023 01/16/2023 Overview: Pt did not have necrotizing fasciitis during this current hospitalization. Sepsis 12/25/2022 05/09/2023 Acute cholecystitis 11/06/2007 11/20/2021 documented as of this encounter (statuses as of 06/06/2023) [address]13-2023 History of Past illness Narrative* Problem Noted Date Diagnosed Date Resolved Date Necrotizing fasciitis 01/13/20232022 Overview: Pt did not have necrotizing fasciitis during this current hospitalization. Sepsis 12/25/2022 05/09/2023 Acute cholecystitis 11/06/2007 11/20/20 21 documented as of this encounter (statuses as of 06/25/2023) [address]13-2023 History of Past illness Narrative* Problem Noted Date Diagnosed Date Resolved Date Necrotizing fasciitis 01/13/20232022 Overview: Pt did not have necrotizing fasciitis during this current hospitalization. Sepsis 12/25/2022 05/09/2023 Acute cholecystitis 11/06/2007 11/20/20 21 documented as of this encounter (statuses as of 07/09/2023) [address]13-2023 History of Past illness Narrative* Problem Noted Date Diagnosed Date Resolved Date Necrotizing fasciitis 01/13/20232022 Overview: Pt did not have necrotizing fasciitis during this current hospitalization. Sepsis 12/25/2022 05/09/2023 Acute cholecystitis 11/06/2007 11/20/20 21 documented as of this encounter (statuses as of 07/09/2023) [address]13-2023 History of Past illness Narrative* Problem Noted Date Diagnosed Date Resolved Date Necrotizing fasciitis 01/13/20232022 Overview: Pt did not have necrotizing fasciitis during this current hospitalization. Sepsis 12/25/2022 05/09/2023 Acute cholecystitis 11/06/2007 11/20/20 21 documented as of this encounter (statuses as of 07/10/2023) [address]13-2023 History of Past illness Narrative* Problem Noted Date Diagnosed Date Resolved Date Necrotizing fasciitis 01/13/20232022 Overview: Pt did not have necrotizing fasciitis during this current hospitalization. Sepsis 12/25/2022 05/09/2023 Acute cholecystitis 11/06/2007 11/20/20 21 documented as of this encounter (statuses as of 07/18/2023) [address]13-2023 History of Past illness Narrative* Problem Noted Date Diagnosed Date Resolved Date Necrotizing fasciitis 01/13/20232022 Overview: Pt did not have necrotizing fasciitis during this current hospitalization. Sepsis 12/25/2022 05/09/2023 Acute cholecystitis 11/06/2007 11/20/20 21 documented as of this encounter (statuses as of 07/23/2023) [address]13-2023 History of Past illness Narrative* Problem Noted Date Diagnosed Date Resolved Date Necrotizing fasciitis 01/13/20232022 Overview: Pt did not have necrotizing fasciitis during this current hospitalization. Sepsis 12/25/2022 05/09/2023 Acute cholecystitis 11/06/2007 11/20/20 21 documented as of this encounter (statuses as of 07/30/2023) [address]13-2023 History of Past illness Narrative* Problem Noted Date Diagnosed Date Resolved Date Necrotizing fasciitis 01/13/20232022 Overview: Pt did not have necrotizing fasciitis during this current hospitalization. Sepsis 12/25/2022 05/09/2023 Acute cholecystitis 11/06/2007 11/20/20 21 documented as of this encounter (statuses as of 07/30/2023) [address]13-[address]23 History of Past illness Narrative* Problem Noted Date Diagnosed Date Resolved Date Necrotizing fasciitis 01/13/20232022 Overview: Pt did not have necrotizing fasciitis during this current hospitalization. Sepsis 12/25/2022 05/09/2023 Acute cholecystitis 11/06/2007 11/20/20 21 documented as of this encounter (statuses as of 08/05/2023) [address]13-[address]23 History of Past illness Narrative* Problem Noted Date Diagnosed Date Resolved Date Necrotizing fasciitis 01/13/20232022 Overview: Pt did not have necrotizing fasciitis during this current hospitalization. Sepsis 12/25/2022 05/09/2023 Acute cholecystitis 11/06/2007 11/20/20 21 documented as of this encounter (statuses as of 08/06/2023) [address]13-2023 History of Past illness Narrative* Problem Noted Date Diagnosed Date Resolved Date Necrotizing fasciitis 01/13/20232022 Overview: Pt did not have necrotizing fasciitis during this current hospitalization. Sepsis 12/25/2022 05/09/2023 Acute cholecystitis 11/06/2007 11/20/20 21 documented as of this encounter (statuses as of 02/08/2024) [address]13-[address]23 Miscellaneous Notes* Telephone Encounter - Lula Sarmiento LPN - 01/13/2023 1:04 PM EST Records from [facility] forwarded to Carolee as requested. * Telephone Encounter - Sandra Potts LPN - 01/08/2023 4:24 PM EST Discharge summary requested from [facility] medical records at this time. Sandra Potts LPN * Telephone Encounter - Irena Bland LPN - 01/06/2023 4:51 PM EST Carolee R with [facility] calls to report that pt was discharged from [facility] on 01/01/23. Carolee is asking for discharge summary to be faxed to her when office receives it. . Irena Bland LPN documented in this encounterS[facility]23 Miscellaneous Notes* Telephone Encounter - Lula Sarmiento LPN - 01/07/2023 11:12 AM EST Patient has follow up visit 01/14/23 for 40 min-will see her as Hosp follow up and reschedule RTN follow up. * Telephone Encounter - Panfilo Oreilly MD - 12/27/2022 8:01 AM EST Reviewed and agree. When she is finally discharged from [facility], will need f/u in 1 week for 40 minute OV. * Telephone Encounter - Christi Barney RN - 12/26/2022 6:54 PM EST [facility] [place] patient care technician calling to let PCP know patient is in [facility] ICU with soft tissue infection. This nurse cancelled patient's hospital discharge follow up appointment from 12/20 hospital discharge which was scheduled for 12/27/22 with PCP. Christi Barney RN documented in this encounterScci [facility]02-[facility]-2023 Miscellaneous Notes* Telephone Encounter - Loretta Peres [...] in chart. Margarita TOWNSEND documented in this encounterScci [facility]-03-2023 Miscellaneous Notes* Telephone Encounter - Sandra Potts LPN - 01/03/2023 2:09 PM EST [facility] 11/08/2022 NOV 01/14/2023 Sandra Potts LPN * Telephone Encounter - Vanessa Ignacio [facility] [place] No need to notify patient. Vanessa Ignacio [employer] documented in this encounterScci Hospital [facility]02-02-2023 Miscellaneous Notes* Telephone Encounter - MEERA Fish - 01/02/2023 3:05 PM EST Telephoned the patient regarding missed appt. Unable to reach pt. Voicemail is not set up. * Telephone Encounter - Robert Sanchez [facility] - 01/02/2023 2:41 PM EST Patient was a no-show for PharmD visit today. Appears she was hospitalized and recently discharged home. Primary Care Pharmacy Rescheduling Outreach Call center, please contact patient and reschedule in person visit for Diabetes management within ~3-8 week(s) (priority is for patient to have hospital f/up visit with PCP first). (Visit length: 30-60 minutes) Thank you, Robert Sanchez [facility] 01/02/2023 2:42 PM Electronically signed by Robert Sanchez [facility] at 01/02/2023 2:43 PM EST documented in this encounterScci Hospital [facility]-2023 History of Present illness Narrative* Mimi Crowley RN - 01/02/2023 11:19 AM EST TRANSITIONAL CARE MANAGEMENT (TCM) COMMUNITY MONITORING PROGRAM Provider Action/FYI: PCP appt 01/14/23 [facility] following Spoke with patient, states pain is tolerable with pain medication, no sob, no N/V, tolerating diet,drinking fluids, blood glucose this morning was 128, staying with her niece for a week, is doing better. SUMMARY: Pt discharged from [facility] on 01/01/23. Admitted for: Necrotizing soft tissue infection Contact made with patient: Yes Hi my name is Mimi Crowley RN and I am calling from the [facility] on behalf of your PCP,Panfilo Oreilly MD [...] speak with a social work steam plant records clerk to help give you support for any [...] I will send your request to a director of front office who will contact and assist you with [...] Home Visit Referral Source of Stratification: [facility] Admission Status: Discharged Readmission Risk Score: 37 PAMELA Score: 4 Patient meets program referral criteria: No Patient does not qualify for High Risk TCM Home Visit program due to: Discharged home, does not meet program criteria Mimi Crowley RN January 02, 2023 11:25 AM documented in this encounterScci Hospital [facility]02-02-2023 History of Present illness Narrative* Brissa Kilpatrick, [facility] - 01/02/2023 10:24 AM EST TRANSITION CARE [...] . Summary: -Pt discharged from [facility] on 01/01/23. -Medication review done: Partial [...] mouth once daily. flash glucose scanning reader (BeiZSTYLE BAO 14 DAY READER) 1 Device four times daily. Taking as prescribed without any issues Discontinued: 12/31/2022 1:30 PM flash glucose sensor (BeiZSTYLE BAO 14 DAY SENSOR) kit 1 Each once daily. Use 1 device for up to 14 days to monitor sugars 4 times per day. [employer] [facility] furosemide (LASIX) 20 mg tablet Take 1 tablet by mouth twice daily. Take BID with 80 mg lasix to equal 100 mg BID furosemide (LASIX) 40 mg tablet Take 1-2 tablets BID for lower extremity edema Discontinued: 12/30/2022 8:05 AM gabapentin (NEURONTIN) 800 mg tablet TAKE 1 TABLET BY MOUTH THREE TIMES A DAY [facility] insulin glargine U-300 conc (TOUJEO MAX U-300 SOLOSTAR) 300 unit/mL (3 mL) inpn Inject 105 Units subcutaneously twice daily. insulin lispro (HUMALOG KWIKPEN INSULIN) 100 unit/mL Inject 50 units plus sliding scale three timesdaily before meals (Sliding scale: 2 units for every 50 points >150; TDD 150 units) Hemoglobin A1C (%) Date Value 11/11/2022 10.1 12/12/2021 10.0 Insulin [place], Disposable, (BD ULTRA-FINE GABINO PEN NEEDLE) 32 [...] for pain for up to 5 days. [facility] #30 - [facility] Counseled on AEs and to monitor for [...] RED Patient requires large seat Preferred pharmacy: [facility] - [id number] - [place] [address] - [address] [phone] [facility] [address] [id number] [place] [address] - [address] [facility] - [phone] [address] [facility] [address] [employer] [address] - [place] [address] [address] [facility] [phone] [address] [facility] [address] Estimated Creatinine Clearance: 128.2 mL/min (based on SCr of 0.9 mg/dL). Estimated Glomerular Filtration Rate (mL/min/1.73m ) Date Value 01/01/2023 81 eGFR- (no units) Date Value 01/23/2022 >60 Additional follow up: Next 5 Appointments Date and Time Provider Department Dept Phone 01/02/2023 2:00 PM Robert [facility] [phone] 01/14/2023 11:00 AM Panfilo Oreilly [facility] [phone] Interventions Made: Patient education/Medication counseling Pharmacist Recommendations Made None Care Coordination: None at this time Time spent on patient: 15-30 minutes Brissa Kilpatrick RPh January 02, 2023 10:25 AM documented in this encounterScci Hospital [facility]02-01-2023 [facility]02-01-2023 [facility]01-31-2023 Miscellaneous Notes * Telephone Encounter - Diana [...] you. Diana Mackenzie LPN documented in this encounterScci Hospital [facility]ima01-31-2023 [facility]01-30-2023 [facility]01-29-2023 [facility]01-28-2023 [facility]01-28-2023 NoteHNO ID: [id number] Author: Interface Note Service: ? Author Type: ? Type: Progress Notes Filed: 12/28/2022 4:21 AM Note Text: Epic Scheduled Downtime: 12/28/2022 1:00:00 AM to 12/28/2022 3:56:00 [facility] Miscellaneous Notes* Telephone Encounter - Silvino Martinez LPN - 12/27/2022 3:46 PM EST Patient phones requesting refills as follows: Requested Prescriptions Pending Prescriptions Disp Refills gabapentin (NEURONTIN) 800 mg tablet [Pharmacy Med Name: Gabapentin 800MG TABS] 90 tablet 2 Sig: TAKE 1 TABLET BY MOUTH THREE TIMES A DAY Please review and advise. Silvino Martinez LPN documented in this encounterScci Hospital [facility]ima01-27-2023 [facility]01-26-2023 [facility]01-26-2023 [facility]01-25-2023 [facility]01-25-2023 [facility]01-25-2023 History of Present illness Narrative* Jersey Key APRN.NIKIA - 12/25/2022 2:22 AM EST Images from the original note were not included. Critical Care Transport Note Patient Name: Macario Wallace Service Date: 12/25/2022 Referring Physician: Job Accepting Physician: Delfino Referring Facility: [facility] Accepting Facility: [facility] SUBJECTIVE/CHIEF COMPLAINT: left thigh abscess REASON [...] DM2, LOGAN, and NSTEMI. She presented to [facility] ED on 12/25/2022 for evaluation of leftthigh [...] level of surgical intervention not available at [facility]. At this time, the physician managing the patient requested transfer to [facility] for tertiary and/or quaternary services unavailable at the referring facility. Patient condition at time of exam was: Acutely ill and emergent surgical intervention. Due to the unique circumstances of the patient, it was determined that this was the closest, most appropriate facility by referring physician. The physician managing the patient requested the [facility] Critical Care Transport Team transport and treat the patient for the purpose of tertiary care, evaluation, and management of her surgical condition(s). Air medical transport was requested to reduce the puk-wl-zqzacdfb time, 20 minutes by air vs. approximately [...] embolism (HCC) Seasonal allergies Unspecified essential hypertension PAST SURGICAL [...] daily with breakfast.^Disp: 30 tablet^Rfl: 5 Insulin [place], Disposable, (BD ULTRA-FINE GABINO PEN NEEDLE) 32 gauge x 32^Inject 1 Each subcutaneously four times daily. use [...] daily.^Disp: 90 tablet^Rfl: 1 flash glucose sensor (BeiZSTYLE BAO 14 DAY SENSOR) kit^1 Each once [...] For this reason she will transfer to [facility] for emergent OR. Gangrene to left [...] VS en route - expedite transfer to [facility] for further intervention The transport was completed without significant incident or change in the patient's status. The patient was transported [facility] by [facility] (Helicopter) for tertiary and/or quaternary evaluation and management of her Emergent Surgical condition(s). Upon arrival to the receiving facility, a dytq-wt-yjma report was given to bedside nursing staff Jacqueline and Resident / PA / ROPING TENDER: Dr. Kelley . Patient care was transferred. [...] Jersey Key APRN.CNP Acute Care Nurse Practitioner [facility] Critical Care Transport Team documented in this encounterScci Hospital [facility]01-25-[address] [facility] December 24, 2022 11:54pm Note Date/Time December 24, 2022 1 0:26pm [facility] Medical Records Department [address] [place] [address] Emergency Department Summary 12/24/22 MR#: [id number] Acct: [id number] Name: MACARIO WALLACE Rep #:[id number] : [...] Yes (Yes per patient) Recent Illness/Hospitalization: Yes [facility] Medical History Abscess Abscess of vulva KERRY [...] tablet 10 mg PO DAILY blood pressure 04/26/21 [History Last Taken 12/09/22] metformin 500 mg [...] lozenge 2 mg PO PRN PRN Smoking Cftayoicm08/09/23 [History Last Taken 12/08/22] potassium chloride 20 [...] exertion and other Details: Patient is just [place] exertion is chronic. ; Denies cough, orthopnea [...] spoke with the patient and daughter. [facility] If there is no availability [facility] will try [employer]. Lab Data Attestation: I reviewed the patient's [...] 75.3 H Lymph % (Auto) 16.9 L [place] % (Auto) 4.2 Eos % (Auto) 2.0 [...] (Auto) Neut % (Auto) Lymph % (Auto) [place] % (Auto) Eos % (Auto) Baso % [...] 23:26 EST Reading Location ID and State: [facility] [place] Tel [phone], Service support , EKG Initial EKG: Attestation: I personally reviewed and interpreted this EKG as follows: Interpretation: Sinus Tachycardia (Sinus tachycardia otherwise EKG is normal. Rate is 105. MA interval is 134 ms. QS duration 76 ms. QT duration 318 ms. Lavinia is normal.) Prior: Unchanged Critical Care Time Critical Care Time: Yes Critical care time (excluding procedures): 30-74 minutes (33), Including time spent: (History, physical, documentation, independent review of laboratory results, initiation of therapy, review of prior records), Discussing w/Patient &/or Family/Data Administrator, Discussing w/Consultants (Case discussed with surgeon on- [...] 80 mg tablet 100 mg PO QHS oojhdwis-mjcb-RU-calcium-mins 1 EACH tablet 1 ea PO DAILY [...] Disposition Disposition: Acute Care Hospital Discharge Location: [facility] What to do if you have Problems For any increased pain, shortness of breath, bleeding, nausea or vomiting, chestpain, or any unexpected problems, contact your Primary Care Provider. Call [facility] ([phone]) or report to the closest Emergency Room. Call 911 if necessary. 12/24/22 8447 <Electronically signed by Jozef Kaiser MD> Cosigner Signature (if applicable): CC: Dr. Tino Oreilly MD ~ Signed [facility] Work Phone: [phone] 862-932401-24-2023 Miscellaneous Notes* Telephone Encounter - Lula Sarmiento LPN - 12/24/2022 6:25 PM EST Patient stated she will go to [facility]. PCP updated. * Telephone Encounter - Panfilo [...] PCP can advise her or Robert Sanchez [facility]. Explained that message would be sent to Dr. Oreilly for review but will also forward to Robert. Please call pt with advise. Thank you. documented in this encounterScci Hospital Lima01-20-[address] Wilkes [facility] December 20, 2022 2:33pm Note Date/Time December 20, 2022 2 :29pm [facility] Medical Records Department [address] [place] [address] Instructions for Home/Discharge Instructions 12/20/22 1429 MR#: [id number] Acct: [id number] Name: MACARIO WALLACE Rep #:[id number] : [...] Primary Care Provider: Tino Oreilly Consulting Providers: hCris Gill Discharge Orders/Prescriptions Prescriptions: Continued loratadine 10 [...] 80 mg tablet 100 mg PO QHS rszzpyxy-tqkv-CO-calcium-mins 1 EACH tablet 1 ea PO DAILY [...] MD; Dr. Chris Gill MD ~ Signed [facility] Work Phone: [phone] 162-962701-19-[address] Wilkes [facility] December 19, 2022 3:25pm Note Date/Time December 19, 2022 3 :15pm [facility] Medical Records Department [address] [place] [address] Progress Note - Hospitalist 12/19/22 1453 MR#: [id number] Acct: [id number] Name: MACARIO WALLACE Rep #:[id number] : 1975 47 From: Liam regalado MD PCP: Dr. Tino Oreilly MD Status :ADM IN Location: [place] [address] Subjective Subjective Somnolent but arousable Objective Data [...] 84.5 H, Lymph % (Auto) 8.9 L, [place] % (Auto) 5.2, Eos % (Auto) 0.3, [...] Clarity Clear, Urine pH 6.0, Ur Specific [place] 1.010, Urine Protein Negative, Urine Glucose (UA) [...] 83.2 H, Lymph % (Auto) 9.3 L, [place] % (Auto) 6.2, Eos % (Auto) 0.3, [...] L 12/19/22 06:29: POC Glucose 135 H 01/19/23 11:15: POC Glucose 162 H ABG Data [...] Type 2 diabetes mellitus: QUALIFIERS: Diabetes mellitus terminal makeup operator insulin use: with group home use Diabetes mellitus complication status: with hyperosmolarity Diabetes mellitus complication detail: with coma Qualified Code(s): E11.01 - Type 2 diabetes mellitus with hyperosmolarity with coma; Z79.4 - detention (current) use of insulin (5) Essential hypertension: [...] DVT: Lovenox Charges/Coding Visit Charges Inpatient E&M: 95654 Subs Hosp L2 12/19/22 152 <Electronically signed by Liam Wilkes MD> Cosigner Signature (if applicable): CC: ~ Signed [facility] Work Phone: [phone] 283-132701-19-2023 History and physical note Author Dr. Gill [facility] December 19, 2022 6:08am Note Date/Time December 18, 2022 1 1:45pm [facility] Medical Records Department [address] [place] [address] H&P Exam - Hospitalist 12/18/22 2345 MR#: [id number] Acct: [id number] Name: MACARIO WALLACE Rep #:[id number] : 1975 47 From: Chris Gill MD PCP: Dr. Tino Oreilly MD Status :ADM IN Location: [place] [id number] 1 HPI - General General Date of [...] 4 to 5 L nasal cannula oxygen ywuift-wqh-hincd and CPAP at night tosleep. Reportedly patient did not use either her CPAP oxygen on the day of presentation. [facility] Medical History (Updated 12/19/22 @ 00:18 by [...] lozenge 2 mg PO PRN PRN Smoking Uqolksxtl26/09/23 [History Last Taken 12/08/22] prednisone 20 mg [...] 84.5 H, Lymph % (Auto) 8.9 L, [place] % (Auto) 5.2, Eos % (Auto) 0.3, [...] Clarity Clear, Urine pH 6.0, Ur Specific [place] 1.010, Urine Protein Negative, Urine Glucose (UA) [...] mellitus complication status: with hyperosmolarity Diabetes mellitus terminal makeup operator insulin use: with terminal makeup operator use Qualified Code(s): E11.01 - Type 2 diabetes mellitus with hyperosmolarity with coma; Z79.4 - detention (current) use of insulin (5) Essential hypertension: [...] Lovenox ordered. Charges/Coding Visit Charges Inpatient E&M: 55417 Init Hosp L3 12/19/22 0023 <Electronically signed by Chris Gill MD> Cosigner Signature (if applicable): CC: Dr. Tino Oreilly MD; Dr. Chris Gill MD~ Signed ADDENDUM by Dr. Chris Gill MD on 12/19/22 at 0607 Addendum Chronic respiratory failure Stable 12/19/22 0608<Electronically signed by Chris Gill MD> Cosigner Signature (if applicable): cc: Dr. Tino Oreilly MD; Dr. Chris Gill MD ~* Signed [facility] Work Phone: [phone]) 381-309501-19-[address] Quintero [facility] December 19, 2022 12:03am Note Date/Time December 18, 2022 9 :58pm [facility] Medical Records Department [address] [place] [address] Emergency Department Summary 12/18/22 MR#: [id number] Acct: [id number] Name: MACARIO WALLACE Rep #:[id number] : 1975 47 From: Irina Quintero MD PCP: Dr. Tino Oreilly MD Status :ADM IN Location: [place] [address] HPI History of Present Illness Chief Complaint: [...] up and walk she agreed to transport. [facility] Medical History Abscess Abscess of vulva KERRY [...] lozenge 2 mg PO PRN PRN Smoking Pzwmtmhce82/09/23 [History Last Taken 12/08/22] prednisone 20 mg [...] decision making narrative: Patient is placed on ceramic coater. EKG, chest x-ray, lab work obtained. Urinalysis [...] 84.5 H Lymph % (Auto) 8.9 L [place] % (Auto) 5.2 Eos % (Auto) 0.3 [...] Clarity Clear Urine pH 6.0 Ur Specific [place] 1.010 Urine Protein Negative Urine Glucose (UA) [...] 80 mg tablet 100 mg PO QHS cuacqwys-hxaa-NV-calcium-mins 1 EACH tablet 1 ea PO DAILY [...] Provider] - Disposition Disposition: Acute Care Hospital [facility] What to do if you have Problems For any increased pain, shortness of breath, bleeding, nausea or vomiting, chestpain, or any unexpected problems, contact your Primary Care Provider. Call [facility] ([phone]) or report to the closest Emergency Room. Call 911 if necessary. 12/19/22 0003 <Electronically signed by Irina Quintero MD> Cosigner Signature (if applicable): CC: Dr. Tino Oreilly MD ~ Signed [facility] Work Phone: [phone] 124-288601-18-[address] Quintero [facility] December 19, 2022 12:03am Note Date/Time December 18, 2022 9 :58pm [facility] Medical Records Department [address] [place] [address] Emergency Department Summary 12/18/22 MR#: [id number] Acct: [id number] Name: MACARIO WALLACE Rep #:[id number] : 1975 47 From: Irina Quintero MD PCP: Dr. Tino Oreilly MD Status :ADM IN Location: [place] [address] HPI History of Present Illness Chief Complaint: [...] up and walk she agreed to transport. [facility] Medical History Abscess Abscess of vulva KERRY [...] lozenge 2 mg PO PRN PRN Smoking Qhnrzmgeb15/09/23 [History Last Taken 12/08/22] prednisone 20 mg [...] decision making narrative: Patient is placed on ceramic coater. EKG, chest x-ray, lab work obtained. Urinalysis [...] 84.5 H Lymph % (Auto) 8.9 L [place] % (Auto) 5.2 Eos % (Auto) 0.3 [...] Clarity Clear Urine pH 6.0 Ur Specific [place] 1.010 Urine Protein Negative Urine Glucose (UA) [...] Signed: Leonides Lakhani MD at 22:59 EST Reading Location ID and State: [facility] / [place] Tel , Service support , EKG Initial EKG: [...] 80 mg tablet 100 mg PO QHS ldctohry-megh-PG-calcium-mins 1 EACH tablet 1 ea PO DAILY [...] MD [Primary Care Provider] - Disposition Disposition: [facility] Care [facility] What to do if you have Problems For any increased pain, shortness of breath, bleeding, nausea or vomiting, chestpain, or any unexpected problems, contact your Primary Care Provider. Call [facility] ([phone]) or report to the closest Emergency Room. Call 911 if necessary. 12/19/22 0003 <Electronically signed by Irina Quintero MD> Cosigner Signature (if applicable): CC: Dr. Tino Oreilly MD ~ Signed [facility] Work Phone: [phone]) 636-980001-13-2023 Miscellaneous Notes* Telephone Encounter - Robert Sanchez, [facility] - 12/13/2022 9:08 AM EST PharmD returned [...] Provider: PANFILO OREILLY Ordering User: ROBERT SANCHEZ RP * Telephone Encounter - Christi Barney RN [...] know. Christi Barney RN documented in this encounterScci Hospital [facility]ima01-12-2023 Miscellaneous Notes* Telephone Encounter - Irina Soriano [...] and advise. Irina Soriano documented in this encounterScci Hospital [facility]ima01-05-2023 Miscellaneous Notes* Telephone Encounter - Robert Sanchez [...] to do so. Will send strips to [facility] at her request. Robert Sanchez PharmD, [facility] Primary Care Clinical Pharmacist documented in this encounterScci Hospital Lima12-28-2022 Miscellaneous Notes* Telephone Encounter - Annie Neville [...] Thank you. Annie Neville documented in this encounterScci Hospital Lima12-12-2022 Miscellaneous Notes* Telephone Encounter - Mariam Meredith [...] function returns to normal. documented in this encounterScci Hospital Lima12-09-2022 History of Present illness Narrative* Panfilo Oreilly [...] Non-STEMI (non-ST elevated myocardial infarction) ([facility]) 2/2 respiratory illness LOGAN (obstructive sleep apnea) using CPAP, Dr. Dumont Pulmonary embolism ([facility]) Seasonal allergies Unspecified essential hypertension Previous [...] tablet by mouth daily with breakfast. Insulin [place], Disposable, (BD ULTRA-FINE GABINO PEN NEEDLE) 32 [...] bedtime as needed. flash glucose scanning reader (BeiZSTYLE BAO 14 DAY READER) 1 Device four times daily. fenofibrate nanocrystallized (TRICOR) 145 mg tablet Take 1 tablet by mouth once daily. flash glucose sensor (BeiZSTYLE BAO 14 DAY SENSOR) kit 1 Each [...] Abs Lymph 1.00 - 4.00 k/uL 1.57 [place]% % 4.3 Abs [place] <0.87 k/uL 0.38 Eosin% % 2.8 Abs [...] and schedule follow up visit with her account analyst at [facility]. 3. Tremor - ICD9: 781.0, ICD10: R25.1 [...] which included preparing to see the patient, jywy-sv-utcy patient care, completing clinical documentation, obtaining and/or reviewing separately obtained history, performing a medically appropriate examination, counseling and educating the pat ient/family/caregiver, and ordering medications, tests, or procedures. Panfilo Oreilly MD documented in this encounterScci Hospital Lima12-07-2022 History of Present illness Narrative* Mehrdad Yoder [...] failure (HCC) 01/2022 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[facility]) 07/2019 Left, small lesion on CT Anxiety Cholecystitis s/p cholecystectomy Diabetes mellitus without mention of complication Diabetic neuropathy ([facility]) Seeing Neurology Diastolic heart failure ([facility]) GERD (gastroesophageal reflux disease) History of abnormal cervical Pap smear History of tobacco use Hyperlipidemia Insomnia Microalbuminuria Morbid obesity ([facility]) Narcotic abuse ([facility]) Non-STEMI (non-ST elevated myocardial infarction) ([facility]) 2/2 respiratory illness LOGAN (obstructive sleep apnea) using CPAP, Dr. Dumont Pulmonary embolism ([facility]) Seasonal allergies Unspecified essential hypertension Current [...] tablet by mouth daily with breakfast. Insulin [place], Disposable, (BD ULTRA-FINE GABINO PEN NEEDLE) 32 [...] bedtime as needed. flash glucose scanning reader (BeiZSTYLE BAO 14 DAY READER) 1 Device four times daily. fenofibrate nanocrystallized (TRICOR) 145 mg tablet Take 1 tablet by mouth once daily. flash glucose sensor (BeiZSTYLE BAO 14 DAY SENSOR) kit 1 Each [...] Objective: Patient presents to clinic ambulating in [facility] Constitutional: Pt is a well developed 47 [...] Skin is ruborous b/l. Non-Invasive [facility] Lower Extremity Arterial Physiology Study Bilateral/Complete [...] ankle: Normal at rest. Technologist: Patty Pitts Jina, [facility] Ordering physician: PANFILO OREILLY Interpreting physician: BEV [...] Care Saba Brenner LPN documented in this encounterScci Hospital Lima12-07-2022 Instructions* Patient Instructions* Minesh Mosley - 11/06/2022 [...] (or decreased sensation in your feet) a graduation coach should always cut your toenails. Be [...] Go to your health care provider or graduation coach to treat these conditions. documented in this encounterScci Hospital Lima12-06-2022 Miscellaneous Notes* Telephone Encounter - Mehrdad Michael [...] 3:16 PM EST Clarisa Quintero CM with [facility] called in and was [...] Please call and advise. documented in this encounterScci Hospital Lima11-30-2022 History of Present illness Narrative* Tessa Suero, [facility] - 10/30/2022 1:00 PM EST Primary Care Pharmacy Visit CC (Reason for Consult): Diabetes Goal: A1c < 7% Collaborating Provider: Dr. Oreilly Last Provider Visit: 10/18/22 Macario Wallace is a 47 year old female presenting for follow up visit by telephone. Patient consents to pharmacy collaborative practice agreement. Patient is presenting today for follow up pharmacotherapy management appointment for diabetes. Admitted to [facility] form 09/22 to 09/24 for acute on [...] GLYCEMIC CONTROL: SMBG s: patient has a freestyle bao, but sensor fell off a few [...] Hypertension Gerd (Gastroesophageal Reflux Disease) Morbid Obesity ([facility]) Microalbuminuria Insomnia History of Tobacco Use Hyperlipidemia Diabetic Neuropathy ([facility]) Type 2 Diabetes Mellitus With Diabetic Polyneuropathy, With Long-Term Current Use of Insulin ([facility]) Mgus (Monoclonal Gammopathy of Unknown Significance) Acute Pulmonary Embolism Without Acute Cor Pulmonale ([facility]) Adrenal Incidentaloma ([facility]) Obesity, Class III, BMI >= 40 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 Left, small lesion on CT Anxiety Cholecystitis s/p cholecystectomy Diabetes mellitus without mention of complication Diabetic neuropathy ([facility]) Seeing Neurology Diastolic heart failure ([facility]) GERD (gastroesophageal reflux disease) History of abnormal cervical Pap smear History of tobacco use Hyperlipidemia Insomnia Microalbuminuria Morbid obesity (HCC) Narcotic abuse (HCC) Non-STEMI (non-ST elevated myocardial infarction) ([facility]) 2/2 respiratory illness LOGAN (obstructive sleep apnea) using CPAP, Dr. Dumont Pulmonary embolism ([facility]) Seasonal allergies Unspecified essential hypertension ALLERGIES [...] 50 points >150; TDD 150 units) Insulin [place], Disposable, (BD ULTRA-FINE GABINO PEN NEEDLE) 32 [...] long-term current use of insulin ([facility]) - ICD9: 250.60, 357.2, V58.67, ICD10: [...] of instructions. Tessa Suero RPh, PharmD PGY1 Percussion Tuner The majority of the pharmacy visit (> 50%) was spent counseling and/or coordinating care for thepatient. interaction: telephonic time was 20 minutes. * Robert Sanchez RPh - 10/30/2022 1:00 PM EST The patient's case was discussed with the pharmacy data analyst who interviewed the patient. Foley elements of history confirmed during office visit. The progress note reflects my input and comments. Robert Sanchez PharmD, [facility] Primary Care Clinical Pharmacist documented in this encounterScci Hospital Lima11-22-2022 Miscellaneous Notes* Telephone Encounter - Hallie Martinez APRN.CNP - 10/22/2022 10:35 AM EST This can be addressed at her upcoming appointment with Dr. Oreilly. Hallie Martinez APRN.NIKIA * Telephone Encounter - Marianne Grier RN - 10/22/2022 9:59 AM EST Clarisa Quintero with [facility] calls to let provider know that they are assisting patient to apply for the medicaid waiver program as she is needing more assistance in the home. Requesting provider submit a claim to [employer] for patient to have a scooter. Clarisa reports that it will probably be denied but she would like to get the process started. Not pended. Patient has follow up appointment 11/08/2022. Marianne Grier RN documented in this encounterScci Hospital Lima11-22-2022 Miscellaneous Notes* Telephone Encounter - Mariam Meredith [...] AM EST ----- Normal/stable labs. BNP from [facility] resulted at 11 which is normal. Recommend she continue higher doselasix, low sodium diet, wear CPAP nightly as discussed. F/u with cardiology. Call if leg swelling not improving with lasix or with weight increase as discussed in office. documented in this encounterScci Hospital Lima11-18-2022 Miscellaneous Notes* Telephone Encounter - Sandra Potts LPN - 10/18/2022 3:45 PM EST [facility] telephoned and made aware of NIKIA BARBOZA message. Read back. Will dispense for patient. Sandra Potts LPN * Telephone Encounter - Hallie Martinez APRN.CNP - 10/18/2022 2:56 PM EST Fine to dispense 81 and that can be for one month. Hallie Martinez APRN.NIKIA * Telephone Encounter - Tri Sorensen RN - 10/18/2022 2:46 PM EST [facility] calling regarding recent script for nicotine patches for patient. Pharmacy states the packs come in quantity of 81 only and to specify how many days provider would like patient to takethis medication. Please contact [facility]. Thank you. documented in this encounterScci Hospital Lima11-18-2022 History of Present illness Narrative* Elysia Faust, RT(R) - 10/18/2022 12:30 PM EST Radiology [...] 18, 2022 12:34 PM documented in this encounterScci Hospital Lima11-18-2022 Instructions* Patient Instructions* Panfilo Oreilly MD - 10/18/2022 11:53 AM EST Check daily weight and call with 2-3 lbs weight gain in 24 hours, or 5 lbs total. documented in this encounterScci Hospital Lima11-18-2022 History of Present illness Narrative* Panfilo Oreilly MD - 10/18/2022 10:29 AM EST Chief Complaint Patient presents with: Hospital Follow Up HPI Macario Wallace is a 47 year old female who presents here today for Hospital Discharge Follow up.. Patient was admitted to [facility] form 09/22 to 09/24 for acute on chronic heart failure and COPD exacerbation. Presented with SOB x 4 days and CXR showed pulmonary venous congestion in the ED. Admitted tot PCU and managed on IV lasix, solu-medrol, [...] Patient does not have follow up with account analyst and has not seen cardiology recently for [...] tablet by mouth daily with breakfast. Insulin [place], Disposable, (BD ULTRA-FINE GABINO PEN NEEDLE) 32 [...] LOZENGE Panfilo Oreilly MD documented in this encounterScci Hospital Lima11-04-2022 Miscellaneous Notes* Telephone Encounter - Diana Mackenzie KRISTIAN - 10/04/2022 1:22 PM EDT Patient has [...] you. Diana Mackenzie LPN documented in this encounterScci Hospital Lima11-01-2022 Miscellaneous Notes* Telephone Encounter - Keyonna Gross LPN - 10/01/2022 9:02 AM EDT Spoke with pt and information listed below given. Pt verbalizes understanding. Pt has picked up the Trulicity. Keyonna Gross LPN * Telephone Encounter - Robert Sanchez RPh - 09/09/2022 3:36 PM EDT exceptional student education teacher called around to different pharmacies, learned [facility] can get her Trulicity in stock. Order sent to [facility] today. Called patient to inform but unable [...] do. Keyonna Gross LPN documented in this encounterScci Hospital Lima10-10-2022 Miscellaneous Notes* Telephone Encounter - Sandra Potts LPN - 09/09/2022 3:57 PM EDT Looks like Robert Sanchez, [facility] sent a new script to [facility]. [facility] telephoned and stated they do have the medication in stock and script will be ready for leaf size picker around 11am today. Patient telephoned and made aware, agreeable to [facility]. Sandra Potts LPN * Telephone Encounter - Panfilo Oreilly MD - 09/09/2022 2:08 PM EDT Can this be transferred to another pharmacy? * Telephone Encounter - Jessica Croft LPN - 09/09/2022 2:04 PM EDT [facility] [place] is on backorder, Patient is completely out of medication x1 week, asking if there is an alternative for Patient. Jessica Croft LPN documented in this encounterScci Hospital Lima09-27-2022 Miscellaneous Notes* Telephone Encounter - Lula Cameron LPN - 08/27/2022 2:01 PM EDT Pt calling for refill. HUMBLE: 07/09/22 NOV: 10/18/22 Last Refill: 02/28/22 #90 0 refills Lula Cameron LPN documented in this encounterScci Hospital Lima09-01-2022 History of Present illness Narrative* Robert Sanchez [facility] - 08/01/2022 1:00 PM EDT Primary Care [...] eating a lot of fruit. Has the [employer] Bao, said the sensor has fallen off [...] not present Adherence: denies missed doses Pharmacy: [facility] Rx coverage: Medicaid Affordability: no issues Diabetes supplies: [employer] CGM Organization System: pill box ACTIVE PROBLEM LIST Calculus of Gallbladder Without Mention of Cholecystitis Or Obstruction Anxiety Logan (Obstructive Sleep Apnea) Essential Hypertension Gerd (Gastroesophageal Reflux Disease) Morbid Obesity (Hcc) Microalbuminuria Insomnia History of Tobacco Use Hyperlipidemia Diabetic Neuropathy (Hcc) Type 2 Diabetes Mellitus With Diabetic Polyneuropathy, With Long-Term Current Use of Insulin ([facility]) Mgus (Monoclonal Gammopathy of Unknown Significance) Acute Pulmonary Embolism Without Acute Cor Pulmonale ([facility]) Adrenal Incidentaloma ([facility]) Obesity, Class III, BMI >= 40 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 Left, small lesion on CT Anxiety Cholecystitis s/p cholecystectomy Diabetes mellitus without mention of complication Diabetic neuropathy ([facility]) Seeing Neurology Diastolic heart failure ([facility]) GERD (gastroesophageal reflux disease) History of abnormal cervical Pap smear History of tobacco use Hyperlipidemia Insomnia Microalbuminuria Morbid obesity (HCC) Narcotic abuse (HCC) Non-STEMI (non-ST elevated myocardial infarction) ([facility]) 2/2 respiratory illness LOGAN (obstructive sleep apnea) using CPAP, Dr. Dumont Pulmonary embolism ([facility]) Seasonal allergies Unspecified essential hypertension ALLERGIES [...] 50 points >150; TDD 150 units) Insulin [place], Disposable, (BD ULTRA-FINE GABINO PEN NEEDLE) 32 [...] carbs/meal Will send resources to review via [employer] Advised to only eat 1/2 bagel or switch to bagel thins Applauded on improved A1c Advised to scan CGM more frequently, had niece help her get set up with [employer] ACEi/ARB for renal protection: yes, Scr and [...] time was 55 minutes. documented in this encounterScci Hospital Lima09-01-2022 Instructions* Patient Instructions* Robert Sanchez RPh - [...] help you get set up with the The RealReal account. If you did not get the email, please let me know. Start to review nutrition labels. Try to limit your carbohydrates to <30-45g per MEAL. Review the materials I sent to you via FotoSwipe. Try to incorporate more protein and fiber into your diet. Tryswitching to 1/2 bagel or to Bagel Thins. documented in this encounterScci Hospital Lima08-25-2022 History of Present illness Narrative* Berenice Bauman [...] previous colonoscopy. She was recently evaluated at [facility] ED on 04/21/2022 for chest pain. [...] CPAP, Dr. Dumont Pulmonary embolism ([facility]) Seasonal allergies Unspecified essential hypertension PAST SURGICAL HISTORY Procedure Laterality Date ANALGESIA,EPIDURAL,LABOR & 1994 INCISION & DRAINAGE ABSCESS COMPLICATED/MULTIPLE 04/07/14 LAPS SURG CHOLECYSTECTOMY W/CHOLANGIOGRAPHY 11/04/2007 PAST SURGICAL HISTORY OF Left 2006 arthroscopic knee surgery PAST SURGICAL HISTORY OF 1995 LEEP Current Outpatient Medications Medication Sig Insulin [place], Disposable, (BD ULTRA-FINE GABINO PEN NEEDLE) 32 [...] bedtime as needed. flash glucose scanning reader (BeiZSTYLE BAO 14 DAY READER) 1 Device four [...] C (98.2 F), height 166.4 cm (5' 5.5), weight (!) 176.4 kg (389 lb), last [...] have offered referral to a larger hospital ([facility]) for screening colonoscopy Patient asks for alternatives for screening for colon cancer, and I have offered stool guaiac testing but told patient that this has to be done on a yearly basis. Patient states that she would preferstool guaiac testing over going to [facility] for colonoscopy. I have ordered the [...] Straightforward Berenice Bauman MD documented in this encounterScci Hospital [facility]ima08-24-2022 Miscellaneous Notes* Telephone Encounter - Belem Romero [...] notify patient. Madelyn Estes documented in this encounterScci Hospital [facility]ima08-23-2022 Nurse Note* Nadia Cagle - 07/23/2022 10:29 [...] Colonoscopy: Unknown Nadia Cagle documented in this encounterScci Hospital Lima08-11-2022 Miscellaneous Notes* Telephone Encounter - Robert Sanchez RPh - 07/11/2022 9:21 AM EDT Called patient to schedule f/up appt for DM mngt, CGM interpretation, and med review. Scheduled for08/01. Billy MarionD, BCPS Primary Care Clinical Pharmacist documented in this encounterScci Hospital Lima08-09-2022 Miscellaneous Notes* Telephone Encounter - Sandra Potts LPN - 07/09/2022 1:20 PM EDT Patient aware. Sandra Potts LPN * Telephone Encounter - Panfilo Oreilly MD - 07/09/2022 1:17 PM EDT Rx sent as requested. * Telephone Encounter - Lula Sarmiento LPN - 07/09/2022 11:37 AM EDT Patient is changing her primary pharmacy to [facility] and is requesting all Rx's for medications and diabetic supplies forwarded to them. documented in this encounterScci Hospital Lima08-09-2022 History of Present illness Narrative* Elysia Faust [...] 09, 2022 11:48 AM documented in this encounterScci Hospital Lima08-05-2022 Miscellaneous Notes* Telephone Encounter - Diana Gurdeep TOWNSEND - 07/05/2022 4:32 PM EDT Patient calling [...] you. Diana Mackenzie LPN documented in this encounterScci Hospital Lima08-03-2022 Miscellaneous Notes* Telephone Encounter - Belem Romero Ma - 07/03/2022 12:14 PM EDT Form discarded as pt denied the need for it. * Telephone Encounter - Keyonna Gross LPN - 07/03/2022 12:11 PM EDT Pt called back and states she does not need a new blood sugar machine, she already has one. Follow up apt scheduled. Keyonna Gross LPN * Telephone Encounter - Belem Romero Ma - 07/03/2022 11:56 AM EDT Office received DM supply form. Message left with pt daughter to have pt call office. Need to know what supplies she needs (ie: test strips, glucose meter, lancets, lancing device, control solution, alcohol swabs) She also needs to schedule an OV, please schedule. Belem Romero Ma documented in this encounterScci Hospital Lima07-29-2022 Miscellaneous Notes* Telephone Encounter - Belem Romero Ma - 06/28/2022 4:24 PM EDT See phone note, pt needs appt. Belem Romero Ma * Telephone Encounter - Panfilo Oreilly MD - 2022 5:25 PM EDT Patient overdue for 3 month follow up. Please call to schedule OV. * Telephone Encounter - Kimber Moore Pss - 2022 [...] patient. Kimber Moore Pss documented in this encounterScci Hospital Lima07-29-2022 Miscellaneous Notes* Telephone Encounter - Lula Sarmiento LPN - 06/28/2022 11:41 AM EDT Phoned patient to schedule OV follow up as she is past due. Patient had an appointment on 06/18/22 but was a no show. documented in this encounterScci Hospital Lima07-28-2022 Miscellaneous Notes* Telephone Encounter - Robert Sanchez RP - 2022 11:45 AM EDT Patient no-showed to PharmD visit today. Unable to reach via phone and VM not set up yet. Will try reaching out at a later date to reschedule. Robert Sanchez [facility]D [facility] Primary [facility] Clinical Pharmacist Carmel [facility] documented in this encounterScci Hospital [facility]ima07-14-2022 Miscellaneous Notes* Telephone Encounter - Robert Sanchez RP - 06/13/2022 11:17 AM EDT Patient is a no show for PharmD visit today. Called patient, she is still out of town, had a car issue and just got fixed today. She apologized for missing and agreed to reschedule for next week on 06/20. Robert Sanchez PharmD [facility] Primary [facility] Clinical Pharmacist Carmel [facility] documented in this encounterScci Hospital [facility]ima07-06-2022 Miscellaneous Notes* Telephone Encounter - Hallie Martinez APRN.NIKIA - 06/05/2022 12:22 PM EDT PDMP website checked and validated. All prescriptions have been APPROPRIATELY filled. No suspiciousactivity was identified. 06/05/2022 by Hallie Martinez APRN.SALES ORDER ADMINISTRATOR * Telephone Encounter - Lashon Overton LPN [...] you. Lashon Overton LPN documented in this encounterScci Hospital Lima06-02-2022 History of Present illness Narrative* Robert Sanchez [facility] - 05/02/2022 11:00 AM EDT Primary Care [...] consumed sugar (cup of OJ and chewy [place] [employer] s.r.lchers), levels eventually went up to 90 mg/dL. [...] to [employer]. Leaving for vacation in [place] on Friday. Current DM Medications: Metformin ER [...] present Adherence: denies missed doses Pharmacy: [facility] [place] Rx coverage: Medicaid Affordability: no issues Diabetes supplies: [employer] CGM Organization System: pill box ACTIVE PROBLEM LIST Calculus of Gallbladder Without Mention of Cholecystitis Or Obstruction Anxiety Logan (Obstructive Sleep Apnea) Essential Hypertension Gerd (Gastroesophageal Reflux Disease) Morbid Obesity (Hcc) Microalbuminuria Insomnia History of Tobacco Use Hyperlipidemia Diabetic Neuropathy (Hcc) Type 2 Diabetes Mellitus With Diabetic Polyneuropathy, With Long-Term Current Use of Insulin ([facility]) Mgus (Monoclonal Gammopathy of Unknown Significance) Acute Pulmonary Embolism Without Acute Cor Pulmonale (Hcc) Adrenal Incidentaloma ([facility]) Obesity, Class III, BMI >= 40 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 Left, small lesion on CT Anxiety Cholecystitis s/p cholecystectomy Diabetes mellitus without mention of complication Diabetic neuropathy ([facility]) Seeing Neurology GERD (gastroesophageal reflux disease) History of abnormal cervical Pap smear History of tobacco use Hyperlipidemia Insomnia Microalbuminuria Morbid obesity (HCC) Narcotic abuse (HCC) Non-STEMI (non-ST elevated myocardial infarction) ([facility]) 2/2 respiratory illness LOGAN (obstructive sleep apnea) using CPAP Pulmonary embolism ([facility]) Seasonal allergies Unspecified essential hypertension Past [...] mouth once daily. flash glucose scanning reader (BeiZSTYLE BAO 14 DAY READER) 1 Device four [...] 12/12/2021 The 10-year ASCVD risk score (Maki KERWIN Jr., et al., 2013) is: 2.6% Values [...] reader, alsoexplained how to set up a CueThink account; since lows are not frequent and [...] diet PharmD sent invite to link via The RealReal. Patient to get account set up prior to next PharmD visit and have CGM downloaded the day prior HbA1c: due 06/18 Patient is scheduled to see SALES ORDER ADMINISTRATOR on 06/18. Patient to have PharmD f/u on 06/06. Patient verbalized understanding of instructions. Robert Sanchez PharmD, [facility] Primary Care Clinical Pharmacist [place]onal Paz [facility] The majority of the pharmacy visit (> 50%) was spent counseling and/or coordinating care for thepatient. interaction: telephonic time was 30 minutes. documented in this encounterScci Hospital Lima06-01-2022 Miscellaneous Notes* Telephone Encounter - Hallie Martinez APRN.NIKIA - 05/01/2022 9:24 AM EDT PDMP website checked and validated. All prescriptions have been APPROPRIATELY filled. No suspiciousactivity was identified. 05/01/2022 by Hallie Martinez APRN.SALES ORDER ADMINISTRATOR * Telephone Encounter - Georgina Samayoa RN [...] you. Georgina Samayoa RN documented in this encounterScci Hospital Lima05-11-2022 Miscellaneous Notes* Telephone Encounter - Panfilo Oreilly [...] Oreilly MD * Telephone Encounter - Vanessa Ignacio [facility] [place] 04/09/2022 2:02 PM EDT Patient is calling today to advise the pill form of gabapentin seems to be working better than the capsules. She was only given the 30 trial of the pill form and would like to go forward with that type of pill and have it sent to her pharmacy , [facility]. Patient has been identified by name and date of : Yes Pending Prescriptions Disp Refills GABAPENTIN 800 MG TABLET 90 tablet 0 Sig: Take 1 tablet by mouth three times daily for 30 days. RIKKI: No RX INSTRUCTIONS: Patient aware RX will be sent to pharmacy. No need to notify patient. Vanessa Ignacio [facility] [place] Electronically signed by Vanessa Ignacio [facility] [place] at 04/09/2022 2:08 PM EDT documented in this encounterScci Hospital [facility]ima05-04-2022 Miscellaneous Notes* Telephone Encounter - Robert Sanchez RP - 04/03/2022 10:56 AM EDT PharmD called [...] office with any issues. Robert Sanchez PharmD, [facility] Primary Care Clinical Pharmacist Ronal Paz [facility] documented in this encounterScci Hospital [facility]ima04-29-2022 Miscellaneous Notes* Telephone Encounter - Robert Sanchez [...] and verbalized understanding. Leena Salinas PharmD PGY1 Percussion Tuner * Telephone Encounter - Leena Salinas RPh [...] for insurance coverage. Leena Salinas PharmD PGY1 Percussion Tuner * Telephone Encounter - Georgina Samayoa RN - 03/29/2022 11:38 AM EDT Patient calls and states that provider had increased patient's insurance yesterday at appointment. Patient states that when she went to leaf size picker medication she was told that dosage is too high by pharmacist and insurance will not cover medication. Patient states that she may need a prior authorization. Please review and advise, Georgina Samayoa RN documented in this encounterScci Hospital Lima04-28-2022 Miscellaneous Notes* Telephone Encounter - Gisele Dumas [...] if provider [facility] her. Please call and advise. documented in this encounterScci Hospital Lima04-28-2022 History of Present illness Narrative* Robert Sanchez RPh - 03/28/2022 10:30 AM EDT The patient's case was discussed with the pharmacy data analyst who interviewed the patient. Foley elements of history confirmed during office visit. The progress note reflects my input and comments. Robert Sanchez, Michelle, BCPS Primary Care Clinical Pharmacist Carmel [facility] * Leena Salinas, [facility] - 03/28/2022 10:30 AM EDT Primary Care [...] mid-200s mg/dL. Patient was able to obtain Medicalisyle Bao CGM and was using. Patient recently placed new sensor on arm, but it was accidentally knocked off a couple days later. Not currently using CGM or checking BG. Patient states she never received invite for The RealReal to connect with PharmD to view CGM [...] morning, getting from pharmacy latertoday Pharmacy: [facility] in [place] Rx coverage: Medicaid Affordability: no issues Diabetes supplies: [employer] CGM Organization System: pill box ACTIVE PROBLEM LIST Calculus of Gallbladder Without Mention of Cholecystitis Or Obstruction Anxiety Logan (Obstructive Sleep Apnea) Essential Hypertension Gerd (Gastroesophageal Reflux Disease) Morbid Obesity (Hcc) Microalbuminuria Insomnia History of Tobacco Use Hyperlipidemia Diabetic Neuropathy (Hcc) Type 2 Diabetes Mellitus With Diabetic Polyneuropathy, With Long-Term Current Use of Insulin ([facility]) Mgus (Monoclonal Gammopathy of Unknown Significance) Acute Pulmonary Embolism Without Acute Cor Pulmonale ([facility]) Adrenal Incidentaloma ([facility]) Obesity, Class III, BMI >= 40 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 Left, small lesion on CT Anxiety Cholecystitis s/p cholecystectomy Diabetes mellitus without mention of complication Diabetic neuropathy (HCC) Seeing Neurology GERD (gastroesophageal reflux disease) History of abnormal cervical Pap smear History of tobacco use Hyperlipidemia Insomnia Microalbuminuria Morbid obesity (HCC) Narcotic abuse (HCC) Non-STEMI (non-ST elevated myocardial infarction) ([facility]) 2/2 respiratory illness LOGAN (obstructive sleep apnea) using CPAP Pulmonary embolism ([facility]) Seasonal allergies Unspecified essential hypertension Past [...] needles, DISPOSABLE, ([facility]) 31 gauge x /16 use with insulin Lancets lancets Use to [...] 12/12/2021 The 10-year ASCVD risk score (Maki KERWIN Dunlap., et al., 2013) is: 2.6% Values used [...] Tresiba to lower BG; patient can connect The RealReal profile to PharmD for PharmD to review [...] 2000 mg daily Advised patient to call Symptom.ly (telephone number on back of reader) to inquire about getting a replacement sensor PharmD will re-send invite to patient's email to connect on The RealReal for CGM report sharing Patient to notify PharmD before next f/up visit if having any issues connecting on The RealReal Recommended patient to reach out to PCP [...] understanding of instructions. Leena Salinas PharmD PGY1 Percussion Tuner The majority of the pharmacy visit (> 50%) was spent counseling and/or coordinating care for thepatient. interaction: telephonic time was 26 minutes. documented in this encounterScci Hospital Lima04-20-2022 Miscellaneous Notes* Telephone Encounter - Keyonna Gross LPN - 03/20/2022 11:04 AM EDT Spoke with pt and information listed below given. Pt verbalizes understanding. Transferred to director of front office. Keyonna Gross LPN * Telephone Encounter - Cass Chambers Cma - 03/20/2022 8:54 AM EDT No answer and no VM will need to try back later Cass Chambers Cma * Telephone Encounter - Hallie Martinez APRN.CNP - 03/20/2022 8:15 AM EDT Please call patient and let her know her A1c has increased to 10.8. Needs to reschedule with clinical pharmacist for appointment. Please assist in scheduling. The rest of her blood work is in acceptable ranges. Recheck in 3 months. Hallie Martinez APRN.CNP documented in this encounterScci Hospital Lima04-19-2022 History of Present illness Narrative* Hallie Martinez [...] water in it. Following with pulmonology in [place]. 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 Left, small lesion on CT Anxiety Cholecystitis s/p cholecystectomy Diabetes mellitus without mention of complication Diabetic neuropathy ([facility]) Seeing Neurology GERD (gastroesophageal reflux disease) History of abnormal cervical Pap smear History of tobacco use Hyperlipidemia Insomnia Microalbuminuria Morbid obesity ([facility]) Narcotic abuse ([facility]) Non-STEMI (non-ST elevated myocardial infarction) ([facility]) 2/2 respiratory illness LOGAN (obstructive sleep apnea) using CPAP Pulmonary embolism ([facility]) Seasonal allergies Unspecified essential hypertension ALLERGIES [...] mouth once daily. flash glucose scanning reader (PublicEarth BAO 14 DAY READER) 1 Device four [...] arise. - Discussed diabetic education issues of terminal makeup operator diabetic complications, diet and importance of [...] carbohydrate, healthy oil intake diet. Hallie Martinez APRN.SALES ORDER ADMINISTRATOR Prescription instructions reviewed with patient as applicable. Patient advised if symptoms do not improve or if symptoms worsen sooner, to contact their primary care physician. Potential red flag symptoms discussed with the patient. Reviewed appropriate action plan to take if red flag symptoms occur. Patient agreeable to treatment plan. documented in this encounterScci Hospital Lima04-05-2022 Miscellaneous Notes* Telephone Encounter - Sandra Potts LPN - 03/05/2022 1:23 PM EDT Patient telephoned and made aware. Sandra Potts LPN * Telephone Encounter - Panfilo Oreilly MD - 03/05/2022 1:06 PM EDT rx for Humalog sent. Continue same dosage as Novolog. * Telephone Encounter - Diana Mackenzie LPN - 03/05/2022 10:28 AM EDT Meghan from [employer] [facility] calling patient insurance requesting Novolog insulin be changedto Humalog asking for new rx to be sent to pharmacy. Please advise documented in this encounterScci Hospital Lima03-02-2022 Miscellaneous Notes* Telephone Encounter - Sandra Potts LPN - 01/30/2022 11:27 AM EST Pt called and made aware. Prescription placed in medical records for pickup. Sandra Potts LPN * Telephone Encounter - Marianne Grier RN - 01/30/2022 8:38 AM EST Patient calls to check on status of request for handicapped placard. Patient asking for prescription to be taken to Medical Records for leaf size picker. Please call patient when available at [phone]. Marianne Grier RN * Telephone Encounter - Panfilo Oreilly MD - 01/29/2022 2:39 PM EST Order for handicap placard printed and signed. In my outbox to be faxed or picked up. * Telephone Encounter - Idalia Milton - 01/29/2022 2:04 PM EST Macario Wallace is calling Panfiol Oreilly MD today to request a prescription for a handicapplacard. Patient would like the prescription left at the javascript front end developer. No chief complaint on file. Patient has been identified by name anNoES:[id number]} [phone] (home) [phone] (cell) Please return call when prescription ready for leaf size picker. Was an appointment scheduled: No: Closing statement: Results or non-symptom based questions: Thank you for [facility], your call will be returned within the next business day. Idalia Milton documented in this encounterScci Hospital [facility]ima02-28-2022 Miscellaneous Notes* Telephone Encounter - Sandra Potts [...] needed. Hallie Martinez APRN.CNP documented in this encounterScci Hospital Lima02-25-2022 Miscellaneous Notes* Telephone Encounter - Hallie Martinez APRN.CNP - 01/25/2022 11:59 AM EST Thank you [...] - 01/25/2022 11:24 AM EST Pt telephoned. [facility] didn't receive orders yet. Pt requesting compression stockings be faxed to [facility] [place]. All orders refaxed and faxed at this time. Sandra Potts LPN * Telephone Encounter - Idalia Milton - 01/25/2022 10:49 AM EST Patient calling in today regarding the walker, compression stockings and shower chair. Patient is asking about the status of the items. Please return call to patient with update documented in this encounterScci Hospital Lima02-25-2022 Miscellaneous Notes* Telephone Encounter - Nita Abbott [...] yeast infection. Please send scripts to [facility] [place] documented in this encounterScci Hospital Lima02-23-2022 Miscellaneous Notes* Telephone Encounter - Hallie Martinez APRN.CNP - 01/23/2022 4:35 PM EST Please fax orders for compression hose, wheeled walker and shower chair to [facility] [place]. Orders in my outbox documented in this encounterScci Hospital Lima02-14-2022 Miscellaneous Notes* Telephone Encounter - Silvino Martinez [...] patient. Kristine Marmolejo Pss documented in this encounterScci Hospital [facility]ima09-01-2021 History of Present illness Narrative* Elysia Faust [...] 01, 2021 3:30 PM documented in this encounterScci Hospital [facility]ima07-20-2021 Miscellaneous Notes* Telephone Encounter - Esthela Weeks LPN - 06/19/2021 3:13 PM EDT Prior Authorization has been completed online at [employer] for Angelo Gore, will await response. FOLEY- [id number] Please keep encounter open until final decision has been received and documented from insurance company. Adalgisa Weeks LPN documented in this encounterScci Hospital Lima12-07-2007 History of Past illness Narrative* Problem Noted Date Resolved Date Acute cholecystitis 11/06/2007 11/20/2021 documented as of this encounter (statuses as of 02/26/2022) [address]07-2007 History of Past illness Narrative* Problem Noted Date Resolved Date Acute cholecystitis 11/06/2007 11/20/2021 documented as of this encounter (statuses as of 03/19/2022) [facility] of [facility] Narrative* Problem Noted Date Resolved Date Acute cholecystitis 11/06/2007 11/20/2021 documented as of this encounter (statuses as of 03/20/2022) [facility] of [facility] illness Narrative* Problem Noted Date Resolved Date Acute cholecystitis 11/06/2007 11/20/2021 documented as of this encounter (statuses as of 03/20/2022) [facility] of [facility] Narrative* Problem Noted Date Resolved Date Acute cholecystitis 11/06/2007 11/20/2021 documented as of this encounter (statuses as of 03/20/2022) [facility] of [facility] illness Narrative* Problem Noted Date Resolved Date Acute cholecystitis 11/06/2007 11/20/2021 documented as of this encounter (statuses as of 03/20/2022) [facility] of [facility] illness Narrative* Problem Noted Date Resolved Date Acute cholecystitis 11/06/2007 11/20/2021 documented as of this encounter (statuses as of 03/20/2022) [facility] of [facility] illness Narrative* Problem Noted Date Resolved Date Acute cholecystitis 11/06/2007 11/20/2021 documented as of this encounter (statuses as of 03/28/2022) [address]07[address]2007 History of Past illness Narrative* Problem Noted Date Resolved Date Acute cholecystitis 11/06/2007 11/20/2021 documented as of this encounter (statuses as of 03/29/2022) [address]07[address]2007 History of Past illness Narrative* Problem Noted Date Resolved Date Acute cholecystitis 11/06/2007 11/20/2021 documented as of this encounter (statuses as of 04/02/2022) [address]07[address]2007 History of Past illness Narrative* Problem Noted Date Resolved Date Acute cholecystitis 11/06/2007 11/20/2021 documented as of this encounter (statuses as of 04/03/2022) [address]07[address]2007 History of Past illness Narrative* Problem Noted Date Resolved Date Acute cholecystitis 11/06/2007 11/20/2021 documented as of this encounter (statuses as of 04/10/2022) [address]07[address]2007 History of Past illness Narrative* Problem Noted Date Resolved Date Acute cholecystitis 11/06/2007 11/20/2021 documented as of this encounter (statuses as of 05/01/2022) [address]07[address]2007 History of Past illness Narrative* Problem Noted Date Resolved Date Acute cholecystitis 11/06/2007 11/20/2021 documented as of this encounter (statuses as of 05/02/2022) [address]2007 History of Past illness Narrative* Problem Noted Date Resolved Date Acute cholecystitis 11/06/2007 11/20/2021 documented as of this encounter (statuses as of 06/03/2022) [address]2007 History of Past illness Narrative* Problem Noted Date Resolved Date Acute cholecystitis 11/06/2007 11/20/2021 documented as of this encounter (statuses as of 06/05/2022) [address]2007 History of Past illness Narrative* Problem Noted Date Resolved Date Acute cholecystitis 11/06/2007 11/20/2021 documented as of this encounter (statuses as of 06/13/2022) [address]2007 History of Past illness Narrative* Problem Noted Date Resolved Date Acute cholecystitis 11/06/2007 11/20/2021 documented as of this encounter (statuses as of 2022) [address]2007 History of Past illness Narrative* Problem Noted Date Resolved Date Acute cholecystitis 11/06/2007 11/20/2021 documented as of this encounter (statuses as of 06/28/2022) [address]2007 History of Past illness Narrative* Problem Noted Date Resolved Date Acute cholecystitis 11/06/2007 11/20/2021 documented as of this encounter (statuses as of 06/28/2022) [address] History of Past illness Narrative* Problem Noted Date Resolved Date Acute cholecystitis 11/06/2007 11/20/2021 documented as of this encounter (statuses as of 07/03/2022) [address] History of Past illness Narrative* Problem Noted Date Resolved Date Acute cholecystitis 11/06/2007 11/20/2021 documented as of this encounter (statuses as of 07/11/2022) [address]2007 History of Past illness Narrative* Problem Noted Date Resolved Date Acute cholecystitis 11/06/2007 11/20/2021 documented as of this encounter (statuses as of 07/19/2022) [facility]2007 History of Past illness Narrative* Problem Noted Date Resolved Date Acute cholecystitis 11/06/2007 11/20/2021 documented as of this encounter (statuses as of 07/24/2022) [facility]-2007 History of Past illness Narrative* Problem Noted Date Resolved Date Acute cholecystitis 11/06/2007 11/20/2021 documented as of this encounter (statuses as of 07/27/2022) [facility]-2007 History of Past illness Narrative* Problem Noted Date Resolved Date Acute cholecystitis 11/06/2007 11/20/2021 documented as of this encounter (statuses as of 08/01/2022) [facility]2007 History of Past illness Narrative* Problem Noted Date Resolved Date Acute cholecystitis 11/06/2007 11/20/2021 documented as of this encounter (statuses as of 08/01/2022) [address] History of Past illness Narrative* Problem Noted Date Resolved Date Acute cholecystitis 11/06/2007 11/20/2021 documented as of this encounter (statuses as of 08/16/2022) [address]2007 History of Past illness Narrative* Problem Noted Date Resolved Date Acute cholecystitis 11/06/2007 11/20/2021 documented as of this encounter (statuses as of 08/27/2022) [address]2007 History of Past illness Narrative* Problem Noted Date Resolved Date Acute cholecystitis 11/06/2007 11/20/2021 documented as of this encounter (statuses as of 09/10/2022) [address] History of Past illness Narrative* Problem Noted Date Resolved Date Acute cholecystitis 11/06/2007 11/20/2021 documented as of this encounter (statuses as of 10/01/2022) [address]2007 History of Past illness Narrative* Problem Noted Date Resolved Date Acute cholecystitis 11/06/2007 11/20/2021 documented as of this encounter (statuses as of 10/04/2022) [facility]2007 History of Past illness Narrative* Problem Noted Date Resolved Date Acute cholecystitis 11/06/2007 11/20/2021 documented as of this encounter (statuses as of 10/18/2022) [facility]2007 History of Past illness Narrative* Problem Noted Date Resolved Date Acute cholecystitis 11/06/2007 11/20/2021 documented as of this encounter (statuses as of 10/22/2022) [facility]2007 History of Past illness Narrative* Problem Noted Date Resolved Date Acute cholecystitis 11/06/2007 11/20/2021 documented as of this encounter (statuses as of 10/22/2022) [facility]2007 History of Past illness Narrative* Problem Noted Date Resolved Date Acute cholecystitis 11/06/2007 11/20/2021 documented as of this encounter (statuses as of 10/22/2022) [facility]2007 History of Past illness Narrative* Problem Noted Date Resolved Date Acute cholecystitis 11/06/2007 11/20/2021 documented as of this encounter (statuses as of 10/30/2022) [facility]2007 History of Past illness Narrative* Problem Noted Date Resolved Date Acute cholecystitis 11/06/2007 11/20/2021 documented as of this encounter (statuses as of 11/05/2022) [facility]2007 History of Past illness Narrative* Problem Noted Date Resolved Date Acute cholecystitis 11/06/2007 11/20/2021 documented as of this encounter (statuses as of 11/06/2022) [facility]2007 History of Past illness Narrative* Problem Noted Date Resolved Date Acute cholecystitis 11/06/2007 11/20/2021 documented as of this encounter (statuses as of 11/11/2022) [address] History of Past illness Narrative* Problem Noted Date Resolved Date Acute cholecystitis 11/06/2007 11/20/2021 documented as of this encounter (statuses as of 11/11/2022) [address]2007 History of Past illness Narrative* Problem Noted Date Resolved Date Acute cholecystitis 11/06/2007 11/20/2021 documented as of this encounter (statuses as of 12/04/2022) [address]2007 History of Past illness Narrative* Problem Noted Date Resolved Date Acute cholecystitis 11/06/2007 11/20/2021 documented as of this encounter (statuses as of 12/06/2022) [address]2007 History of Past illness Narrative* Problem Noted Date Resolved Date Acute cholecystitis 11/06/2007 11/20/2021 documented as of this encounter (statuses as of 12/12/2022) [address]2007 History of Past illness Narrative* Problem Noted Date Resolved Date Acute cholecystitis 11/06/2007 11/20/2021 documented as of this encounter (statuses as of 12/13/2022) [facility]2007 History of Past illness Narrative* Problem Noted Date Resolved Date Acute cholecystitis 11/06/2007 11/20/2021 documented as of this encounter (statuses as of 12/25/2022) [facility]2007 History of Past illness Narrative* Problem Noted Date Resolved Date Acute cholecystitis 11/06/2007 11/20/2021 documented as of this encounter (statuses as of 12/25/2022) [address] History of Past illness Narrative* Problem Noted Date Resolved Date Acute cholecystitis 11/06/2007 11/20/2021 documented as of this encounter (statuses as of 12/30/2022) [address] History of Past illness Narrative* Problem Noted Date Resolved Date Acute cholecystitis 11/06/2007 11/20/2021 documented as of this encounter (statuses as of 12/31/2022) [address]2007 History of Past illness Narrative* Problem Noted Date Resolved Date Acute cholecystitis 11/06/2007 11/20/2021 documented as of this encounter (statuses as of 01/02/2023) [address]2007 History of Past illness Narrative* Problem Noted Date Resolved Date Acute cholecystitis 11/06/2007 11/20/2021 documented as of this encounter (statuses as of 01/02/2023) [address]2007 History of Past illness Narrative* Problem Noted Date Resolved Date Acute cholecystitis 11/06/2007 11/20/2021 documented as of this encounter (statuses as of 01/03/2023) [address]2007 History of Past illness Narrative* Problem Noted Date Resolved Date Acute cholecystitis 11/06/2007 11/20/2021 documented as of this encounter (statuses as of 01/07/2023) [address]2007 History of Past illness Narrative* Problem Noted Date Resolved Date Acute cholecystitis 11/06/2007 11/20/2021 documented as of this encounter (statuses as of 01/07/2023) [address]2007 History of Past illness Narrative* Problem Noted Date Resolved Date Acute cholecystitis 11/06/2007 11/20/2021 documented as of this encounter (statuses as of 01/13/2023) [facility]2007 History of Past illness Narrative* Problem Noted Date Resolved Date Acute cholecystitis 11/06/2007 11/20/2021 documented as of this encounter (statuses as of 01/14/2023) [facility]2007 History of Past illness Narrative* Problem Noted Date Resolved Date Acute cholecystitis 11/06/2007 11/20/2021 documented as of this encounter (statuses as of 01/15/2023) [facility] Siu [facility] July 15, 2023 1:43pm Note Date/Time July 15, 2023 1: 43pm [facility] Medical Records Department [address] [place] [address] Counseling Note - Pharmacy 07/15/23 1342 MR#: [id number] Acct: [id number] Name: MACARIO WALLACE Rep #:[id number] : 1975 48 From: Tamara Siu PCP: Dr. Tino Oreilly MD Status :ADM JACQUELYN Y [facility] Pharmacy Service has performed discharge medication reconciliation [...] understanding of their dischargemedications. Patient counseled by graduate studentMaya. Medications at Discharge Home Medications multivit-iron 18 [...] signed by Tamara Siu> Date _ Tamara Truonger Signature (if applicable): Date CC: ~ Signed [facility] Work Phone: Consult note Author Chandan Jacob [facility] Note Date/Time August 19, 2025 4:02pm [facility] Medical Records Department [address] [place] [id number] Counseling Note - Pharmacy 08/19/25 1517 MR#: [id number] Acct: [id number] Name: MACARIO WALLACE Rep #:[id number] : 1975 50 From: Chandan Jacob PCP: Dr. Delmy Solorzano MD Status:ADM IN Location: [place] [address] [place]acy [facility] has performed discharge medication [...] 2.5 mg tablet 2.5 mg PO .every es/thurs #8 tabs 07/15/23 oxycodone-acetaminophen 5 mg-325 mg [...] BID 7 days #14 caps 08/19/25 08/19/25 1517 <Electronically signed by Chandan peralta> Date _ Chandan Perez Signature (if applicable): Date CC: ~ Signed [facility] Work Phone: Discharge summary Author Dr. Wilkes [facility] December 20, 2022 4:11pm Note Date/Time December 20, 2022 3 :12pm [facility] Medical Records Department [address] [place] [address] Discharge Summary 12/20/22 1510 MR#: [id number] Acct: [id number] Name: MACARIO WALLACE Rep #:[id number] : 1975 47 From: Liam regalado MD PCP: Dr. Tino Oreilly MD Status :ADM IN Location: [place] [id number]- 1 Providers Date of Admission: 12/18/22 Primary Care Physician: Dr. 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 Reportedly patient [...] just completea course of doxycycline on the or 18 of this month. Do recommend monitoring of the area and initiation of antibiotics if necessary, [facility]. [...] 81.4 H, Lymph % (Auto) 10.5 L, [place] % (Auto) 6.3, Eos % (Auto) 0.7, [...] 80 mg tablet 100 mg PO QHS nbjqysgx-uhau-KT-calcium-mins 1 EACH tablet 1 ea PO DAILY [...] Health Service Charges/Coding Visit Charges Inpatient E&M: 33173 Disch Hosp >30min 12/20/22 1611 <Electronically signed by Liam Wilkes MD> Cosigner Signature (if applicable): CC: Dr. Tino Oreilly MD; Dr. Liam Wilkes MD~ Signed [facility] Work Phone: Discharge summary Author Belem Aponte [facility] July 15, 2023 12:23pm Note Date/Time July 15, 2023 12 :03pm [facility] Medical Records Department [address] [place] [address] Discharge Summary 07/15/23 1203 MR#: [id number] Acct: [id number] Name: MACARIO WALLACE Rep #:[id number] : 1975 48 From: Belem Aponte DO PCP: Dr. Tino Oreilly MD Status :ADM JACQUELYN Location: [place] [address]- Providers Date of Admission: 07/14/23 Date of [...] mg PO .every /th #8 tabs 07/15/23 Hospital Course Operations None [...] baseline. She indicated she was recently in [place] visiting her mother and had to be [...] % (Auto) 67.8, Lymph % (Auto) 21.4, [place] % (Auto) 4.5, Eos % (Auto) 1.8, [...] Neut % (Auto) 67.0, Lymph % (Auto)21.4, [place] % (Auto) 4.5, Eos % (Auto) 2.1, [...] 80 mg tablet 80 mg PO QHS wdpdclic-bgif-ZL-calcium-mins 1 EACH tablet 1 ea PO DAILY [...] - Within 2 Weeks Nelly Hunter NP, ROPING TENDER-C [Med Staff - Adv Practice Prof] - Within 1 Month (callfor appt) Disposition Disposition (needs filled in before D/C Order can be placed): Home, Self Care Charges/Coding Visit Charges Inpatient E&M: 94445 Disch Hosp 07/15/23 1223 <Electronically signed by Belem Aponte DO> Cosigner Signature (if applicable): CC: Dr. Tino Oreilly MD; Dr. Belem Aponte DO~ Signed [facility] Work Phone: Discharge summary Author Eulogio Jiang [facility] January 15, 2024 12:23am Note Date/Time January 15, 2024 12:13am [facility] Medical Records Department [address] [place] [address] Emergency Department Summary 01/15/24 MR#: [id number] Acct: [id number] Name: MACARIO WALLACE Rep #:[id number] : [...] overload and therefore comes in for evaluation. [facility] Medical History (Updated 01/15/24 @ 00:23 by [...] % (Auto) 68.8 Lymph % (Auto) 23.8 [place] % (Auto) 3.6 Eos % (Auto) 2.1 [...] 23:51 EST Reading Location ID and State: [address] [place] [address] Tel , Service support , Chest x-ray [...] 80 mg tablet 80 mg PO QHS igaezjpt-avfz-QT-calcium-mins 1 EACH tablet 1 ea PO DAILY [...] your Primary Care Provider. Call [facility] ([phone]) or report to the closest Emergency Room. Call 911 if necessary. 01/15/24 0023 <Electronically signed by Eulogio Jiang DO> Cosigner Signature (if applicable): CC: Dr. Delmy Solorzano MD ~ Signed [facility] Work Phone: Evaluation note* Diagnosis Chronic diastolic heart failure (HCC) Chronic diastolic heart failure [facility]* Diagnosis Onset Date Resolution Status Pneumonia acute Right leg pain acute Acute hyponatremia resolved Acute on chronic respiratory failure with hypoxia and hypercapnia resolved KERRY (acute kidney injury) re solved CHI (closed head injury) res olved Congestive heart failure acu te Acute and chronic respiratory failure with hypoxia chronic Chronic diastolic (congestive) heart failure chronic Morbid obesity chronic 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 reliner [facility] Work Phone: Evaluation note* Diagnosis Type 2 diabetes mellitus with diabetic polyneuropathy, with long-term current use of insulin (HCC)- Primary Dysuria LOGAN (obstructive sleep apnea) 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 (adult) (pediatric) Essential hypertension Unspecified essential hypertension Chronic respiratory failure with hypoxia (HCC) Chronic respiratory failure Hyperlipidemia, unspecified hyperlipidemia type documented in this encounter [facility]* Diagnosis Chronic diastolic heart failure (HCC)- Primary Chronic diastolic heart failure documented in this encounter [facility]* Diagnosis Vaginal rasta Candidiasis of vulva and vagina Type 2 diabetes mellitus with diabetic polyneuropathy, with long-term current use of insulin (HCC) documented in this encounter [facility]* Diagnosis Type 2 diabetes mellitus with diabetic polyneuropathy, with long-term current use of insulin (HCC)- Primary [facility] Diagnosis Type 2 diabetes mellitus with diabetic polyneuropathy, with long-term current use of insulin (HCC) documented in this encounter [facility]* Diagnosis Type 2 diabetes mellitus with diabetic polyneuropathy, with long-term current use of insulin (HCC) documented in this encounter [facility]* Diagnosis Type 2 diabetes mellitus with diabetic polyneuropathy, with long-term current use of insulin (HCC)- Primary documented in this encounter [facility]* Diagnosis Encounter for screening mammogram for breast cancer documented in this encounter [facility] note* Diagnosis Chronic diastolic heart failure (HCC) Chronic diastolic heart failure Type 2 diabetes mellitus with diabetic polyneuropathy, with long-term current use of insulin (HCC) documented in this encounter [facility] note* Diagnosis Type 2 diabetes mellitus with [...] Tachycardia Tachycardia, unspecified documented in this encounter [facility] note* Diagnosis Screening for colon cancer- Primary Special screening for malignant neoplasms, colon Chest pain, unspecified type Morbid obesity (HCC) Morbid obesity documented in this encounter [facility] note* Diagnosis Type 2 diabetes mellitus with diabetic polyneuropathy, with long-term current use of insulin (HCC)- Primary documented in this encounter [facility] note* Diagnosis Chronic diastolic heart failure (HCC) Chronic diastolic heart failure Type 2 diabetes mellitus with diabetic polyneuropathy, with long-term current use of insulin (HCC) documented in this encounter [facility] noteNo assessment information [facility] Work Phone: Evaluation note* Diagnosis Onset Date Resolution Status Acute on chronic heart failu re with normal ejection fraction acute Acute and chronic respiratory failure with hypoxia [facility] Work Phone: Evaluation note* Diagnosis Type 2 diabetes mellitus with diabetic polyneuropathy, with long-term current use of insulin (HCC) documented in this encounter [facility] note* Diagnosis Acute diastolic CHF (congestive heart failure) (HCC)- Primary Acute diastolic heart failure COPD with exacerbation (HCC) Obstructive chronic bronchitis with exacerbation Bacterial pneumonia Bacterial pneumonia, unspecified Hypoxia Hypoxemia LOGAN treated with BiPAP Bilateral lower extremity edema Edema Type 2 diabetes mellitus with diabetic polyneuropathy, with long-term current use of insulin (HCC) Other chest pain Tremor Abnormal involuntary movements Tobacco use Tobacco use disorder [facility] Diagnosis Type 2 diabetes mellitus with diabetic polyneuropathy, with long-term current use of insulin ([facility])- Primary History of tobacco use Personal history of tobacco use, presenting hazards to health [facility] Diagnosis Onychomycosis- Primary Dermatophytosis of nail Pain in toe of left foot Pain in limb Pain in toe of right foot Pain in limb Other diabetic neurological complication associated with type 2 diabetes mellitus ([facility]) Hyperkeratosis Acquired keratoderma Chronic venous insufficiency Unspecified venous (peripheral) insufficiency Diminished pulses in lower extremity Other symptoms involving cardiovascular system [facility] Diagnosis Strep pharyngitis- Primary Streptococcal sore throat Reactive airway disease with acute exacerbation, unspecified asthma severity, unspecified whether persistent Tremor Abnormal involuntary movements LOGAN treated with BiPAP Morbid obesity (HCC) Morbid obesity Type 2 diabetes mellitus with diabetic polyneuropathy, with long-term current use of insulin ([facility]) Episodic lightheadedness Dizziness and giddiness Dehydration [facility] Diagnosis KERRY (acute kidney injury) ([facility])- Primary Acute kidney failure, unspecified documented [facility] this encounter [facility]* Diagnosis Acute diastolic CHF (congestive heart failure) ([facility]) Acute diastolic heart failure Bilateral lower extremity edema Edema documented in this encounter [facility] note* Diagnosis Onset Date Resolution Status Acute on chronic heart failu re with normal ejection fraction acute Acute and chronic respiratory failure with hypoxia chronic KERRY (acute kidney injury) ac yaa Metabolic encephalopathy acu te Unable to ambulate acute Essential hypertension chron ic Type 2 diabetes mellitus [facility] Work Phone: Evaluation note* Diagnosis Type 2 diabetes mellitus with diabetic polyneuropathy, with long-term current use of insulin ([facility]) documented in this encounter [facility]* Diagnosis Type 2 diabetes mellitus with diabetic polyneuropathy, with long-term current use of insulin ([facility]) Ischemia of heart, chronic Chronic ischemic heart disease, unspecified Tachycardia Tachycardia, unspecified Acute pulmonary embolism without acute cor pulmonale, unspecified pulmonary embolism type ([facility]) Essential hypertension Unspecified essential hypertension Hyperlipidemia, unspecified hyperlipidemia type documented [facility] encounter [facility]* Diagnosis Necrotizing soft tissue infection [facility] Diagnosis Onset Date Resolution Status Acute on chronic heart failu re with normal ejection fraction acute Acute and chronic respiratory failure with hypoxia chronic KERRY (acute kidney injury) re solved Metabolic encephalopathy res olved Unable to ambulate resolved [facility] Work Phone: Evaluation note* Diagnosis Open wounds involving multiple regions of lower extremity- Primary documented [facility] this encounter [facility]* Diagnosis Onset Date Resolution Status KERRY (acute kidney injury) re solved Metabolic encephalopathy res olved Unable to ambulate resolved [facility] Work Phone: Evaluation note* Diagnosis Abscess of groin, left- Primary Cellulitis and abscess of trunk Non-healing open wound of left groin, initial encounter Necrotizing soft tissue infection Cellulitis of skin Cellulitis and abscess of unspecified site Type 2 diabetes mellitus with diabetic polyneuropathy, with long-term current use of insulin ([facility]) documented in this encounter [facility]* Diagnosis Onset Date Resolution Status KERRY [...] hypoxia and hypercapnia chronic 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 reliner shay [facility] Work Phone: Evaluation note* Diagnosis Hospital discharge follow-up- Primary Other follow-up examination Morbid obesity (HCC) Morbid obesity Open wound of inguinal region, sequela Pneumonia due to infectious organism, unspecified laterality, unspecified part of lung Oxygen dependent Dependence on supplemental oxygen Impaired ambulation Stress incontinence Female stress incontinence Anxiety and depression Dysthymic disorder Failure to attend appointment with reason given [facility]* Diagnosis Onset Date Resolution Status KERRY [...] abscess resolved Pneumonia resolved Severe sepsis resolved [facility] Work Phone: Evaluation note* Diagnosis Pressure injury of other site, stage 2 (HCC)- Primary [facility] Diagnosis Anxiety and depression Dysthymic disorder Type 2 diabetes mellitus with diabetic polyneuropathy, with long-term current use of insulin (HCC) Essential hypertension Unspecified essential hypertension Hyperlipidemia, unspecified hyperlipidemia type [facility]* Diagnosis Type 2 diabetes mellitus with diabetic polyneuropathy, with long-term current use of insulin (HCC) [facility] Diagnosis Encounter for screening mammogram for breast cancer documented [facility]* Diagnosis Type 2 diabetes mellitus with diabetic polyneuropathy, with long-term current use of insulin (HCC) documented [facility]* Diagnosis Type 2 diabetes mellitus with diabetic polyneuropathy, with long-term current use of insulin ([facility]) documented [facility] this [facility]* Diagnosis Tobacco use Tobacco use disorder [facility] Diagnosis Onset Date Resolution Status COPD with acute exacerbation resolved Elevated lactic acid level r esolved Chest pain acute CHF (congestive heart failure) acute [facility] Work Phone: Evaluation note* Diagnosis Type 2 diabetes mellitus with diabetic polyneuropathy, with long-term current use of insulin ([facility]) [facility] Diagnosis Onset Date Resolution Status Chest pain resolved [facility] Work Phone: Evaluation note* Diagnosis Acute diastolic CHF (congestive heart failure) (HCC) Acute diastolic heart failure Bilateral lower extremity edema Edema [facility] Diagnosis Chronic diastolic heart failure (HCC) Chronic diastolic heart failure Decreased lung sounds Abnormal chest sounds [facility] Diagnosis Chronic respiratory failure with hypoxia (HCC) Chronic respiratory failure Acute on chronic congestive heart failure, unspecified heart failure type (HCC) [facility] Diagnosis Onset Date Resolution Status Admit Date Cellulitis of leg acute Septemb er 2024 9:09pm Elevated troponin acute Septemb er 2024 9:09pm [facility] Work Phone: History and physical note Author Dr. Gill [facility] December 19, 2022 12:23am Note Date/Time December 18, 2022 1 1:45pm [facility] Medical Records Department [address] [place] [address] H&P Exam - Hospitalist 12/18/22 2345 MR#: [id number] Acct: [id number] Name: MACARIO WALLACE Rep #:[id number] : 1975 47 From: Chris Gill MD PCP: Dr. Tino Oreilly MD Status :ADM IN Location: [facility] SNA871- 1 HPI - General General Date of [...] 4 to 5 L nasal cannula oxygen qdqqaa-mbn-emevp and CPAP at night tosleep. Reportedly patient did not use either her CPAP oxygen on the day of presentation. [facility] Medical History (Updated 12/19/22 @ 00:18 by [...] subcut BID DM 30 days #28.5 mL 10/25/22 [Rx Last Taken 12/09/22] insulin lispro 100 [...] lozenge 2 mg PO PRN PRN Smoking Uydblpvua73/09/23 [History Last Taken 12/08/22] prednisone 20 mg [...] 84.5 H, Lymph % (Auto) 8.9 L, [place] % (Auto) 5.2, Eos % (Auto) 0.3, [...] Clarity Clear, Urine pH 6.0, Ur Specific [place] 1.010, Urine Protein Negative, Urine Glucose (UA) [...] mellitus complication status: with hyperosmolarity Diabetes mellitus group home insulin use: with group home use Qualified Code(s): E11.01 - Type 2 diabetes mellitus with hyperosmolarity with coma; 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 Charges/Coding Visit Charges Inpatient E&M: 35511 Init Hosp L3 12/19/22 0023 <Electronically signed by Chris Gill MD> Cosigner Signature (if applicable): CC: Dr. Tino Oreilly MD; Dr. Chris Gill MD~ Signed [facility] Work Phone: History and physical note Author Olamide Mas [facility] Note Date/Time August 16, 2025 9:32pm [facility] Medical Records Department [address] [place] [address] H&P Exam - Hospitalist 08/16/252105 MR#: [id number] Acct: [id number] Name: MACARIO WALLACE Rep #:[id number] : 1975 50 From: Olamide Mas MD PCP: Dr. Delmy Solorzano MD Status:ADM IN Location: [place] [id number]- [id number] HPI - General General Date of [...] neuropathy, Hx VTE who presents to the [facility] ED on 08/16/2025 with history of increasing [...] now upon current presentation up to408 pounds. [facility] Medical History (Updated 08/16/25 @ 21:32 by [...] 2.5 mg/3 mL 2.5 mg inhalation Q4H MA N SOB 12/09/22 07/10/23 History (0.083 %) [...] (Auto) 72.2 H, Lymph % (Auto) 20.4, [place] % (Auto) 4.1, Eos % (Auto) 2.0, [...] airspace consolidation or pleural effusions. Reading Location: [facility] Assessment & Plan Assessment/Plan (1) Cellulitis [...] neuropathy, Hx VTE who presents to the [facility] ED on 08/16/2025 with history of increasing [...] Code status. Charges/Coding Visit Charges Inpatient E&M: 53641 Init Hosp L3 08/16/252131 <Electronically signed by Olamide Mas MD> Cosign Signature (if applicable): CC: Dr. Olamide Mas MD; Dr. Delmy Solorzano MD~ Signed [facility] Work Phone: Hospital Discharge instructions Additional Instructions Please follow-up with your surgeon for repeat evaluation. Take antibiotic as directed to resolve any returning infection and if you have any further concerns or develop a fever please [facility] the [facility] Work Phone: Hospital Discharge instructions Additional Instructions [...] any further concerns please return for repeat evaluation.[facility] Work Phone: Hospital Discharge instructions Additional Instructions Please continue all of your home medications as directed by your family doctor and return to the ER should you have any further [facility] Work Phone: Patient's home Plan of care note* Visit Details Visit Type -SN SOC Discipline -Mcc Problems Problem Description Start Date Status Goals [...] d in this visit SN Edema Disciplines: SN 02/23/2023 Active 1 goal linked to scheduled/document ed intervention 1 goal intervention scheduled/documente d in this visit SN Integumentary/W ounds Disciplines: SN 02/23/2023 Active 1 goal linked to scheduled/document ed intervention 2 goal interventions scheduled/documente d in this visit SN Diabetes Disciplines: SN 02/23/2023 Active 1 goal linked [...] and oxygen safety. [facility] Visit Details Visit Type -Care Coordinatio n Discipline -Flotation Tank Operator Problems Problem Description Start Date Status Goals Interve ntions BALLING HEAD TENDER Referral Disciplines: Skilled Services 02/23/2023 Resolved on 02/25/2023 1 goal linked to scheduled/document ed intervention 1 goal intervention scheduled/document ed in this visit Goals Goal Associated Problem Outcome Goal Met? Visit Notes Patient will be referred to additional discipline as needed BALLING HEAD TENDER Referral Completed Yes Interventions Intervention Associated Problem/Goal Status Variance Visit Notes BALLING HEAD TENDER evaluation and treatment Description: BALLING HEAD TENDER Referral eval and treat for Community Resources. Patient states she is on waiver and is in need of an aide, electric, wheel chair, raised recliner states CM is working on these items Problem:BALLING HEAD TENDER Referral Goal:Patient will be referred to additional discipline as needed Completed [facility] Visit Details Visit Type -SN ROUTINE Discipline -Mcc Problems Problem Description Start Date Status Goals [...] and pain management. documented in this encounter [facility] home Plan of care note* Visit Details Visit Type -SN AGENCY DC WO VISIT Discipline -Mcc Problems Problem Description Start Date Status Goals [...] Assessment Completed Yes documented in this encounter [facility] home Plan of care note* Visit Details Visit Type -SN SOC Discipline -Mcc Problems Problem Description Start Date Status Goals [...] SN Genitourinary disease process Disciplines: SN 03/07/2023 Active 1 goal linked [...] bony prominences, Routine skin care and Notifying [facility] clinician of changes to skin integrity [...] Discuss all medications you are taking, even iljb-meq-ylputjg medicines, with your provider and pharmacist since [...] after incontinence episode. [facility] Visit Details Visit Type -SN ROUTINE Discipline -Mcc Problems Problem Description Start Date Status Goals [...] SN Genitourinary disease process Disciplines: SN 03/07/2023 Active 1 goal linked [...] bony prominences, Routine skin care and Notifying [facility] clinician of changes to skin integrity [...] Discuss all medications you are taking, even vdqz-qjf-qcsahzg medicines, with your provider and pharmacist since [...] of pads/protective garments. documented in this encounter [facility]'s home Plan of care note* Visit Details [...] and teach back. documented in this encounter [facility] home Plan of care note* Visit Details Visit Type -SN ROUTINE Discipline -Mcc Problems Problem Description Start Date Status Goals [...] in this visit SN Cardiovascular Condition Disciplines: 03/07/2023 Active 1 goal linked to [...] Discuss all medications you are taking, even egqo-lny-unujoiw medicines, with your provider and pharmacist since [...] and pain management. documented in this encounter [facility]'s home Plan of care note* Visit Details Visit Type -SN ROUTINE Discipline -Mcc Problems Problem Description Start Date Status Goals [...] ed in this visit SN Diabetes Disciplines: 03/07/2023 Active 1 goal linked to scheduled/documen mitul intervention SN Cardiovascular Condition Disciplines: 03/07/2023 Active 1 goal linked to [...] Discuss all medications you are taking, even ytkn-dqh-jtcsqaj medicines, with your provider and pharmacist since [...] pulmonary disease management. documented in this encounter [facility]'s home Plan of care note* Visit Details Visit Type -SN ROUTINE Discipline -Mcc Problems Problem Description Start Date Status Goals [...] mitul in this visit SN Diabetes Disciplines: SN 03/07/2023 Active 1 goal linked to scheduled/docume nted intervention SN Cardiovascular Condition Disciplines: SN 03/07/2023 Resolved on 04/02/2023 1 goal linked [...] Discuss all medications you are taking, even mqnt-ruh-ekwszny medicines, with your provider and pharmacist since [...] pulmonary disease management. [facility] Visit Details Visit Type -SN ROUTINE Discipline -Mcc Problems Problem Description Start Date Status Goals [...] and oxygen safety. [facility] Visit Details Visit Type -SN JIGNESH Discipline -Mcc Problems Problem Description Start Date Status Goals [...] in this visit SN Heart Failure Disciplines: SN 04/26/2023 Active 1 goal linked [...] indicated to help with indigestion. Taking an rqhd-yra-tnxfkpu probiotic or eating yogurt with live and [...] Discuss all medications you are taking, even wczr-xjd-ikqlafi medicines, with your provider and pharmacist since [...] COPD management and energy conservation pacing activities, [place] in ADLs vs what caregiver should be [...] the COPD binder. [facility] Visit Details [...] of pulmonary disease. documented in this encounter [facility]'s home Plan of care note* Visit Details Visit Type -SN AGENCY DC W Lilli LIN Discipline -Mcc Problems Problem Description Start Date Status Goals [...] without ongoing services documented in this encounter [facility] for referral (narrative)* Diagnostic Procedure Only (Routine) - Pending Review Specialty Diagnoses / Procedures Referred By Aarti coulter Referred To Contact [facility] Diagnoses Encounter for screening mammogram for breast cancer Procedures SHERYL SCREENING SCREENING MAMMOGRAPHY BI 2-VIEW BREAST INC CAD Panfilo Oreilly MD [address] [place] [address] [facility] [address] [place] [address] Referral ID Status Reason Start Date Expiration Date Visits Requested Visits Authorized [id number] Pending Review Auto-Generat ed Referral 05/29/2022 06/28/2023 1 1 [facility] for referral (narrative)* Outpatient Procedure (Routine) - Closed Specialty Diagnoses / Procedures Referred By Aarti coulter Referred To [facility] Diagnoses Acute diastolic CHF (congestive heart failure) (HCC) Other chest pain Procedures ECG COMPLETE ECG ROUTINE ECG W/LEAST 12 LDS W/I&R Panfilo Oreilly MD [address] [place] [address] [facility] [place] [address] [place] [address] Referral ID Status Reason Start Date Expiration Date V isits Requested Visits Authorized [id number] Closed Auto-Generate d Referral 10/18/2022 10/18/2023 1 1 * Diagnostic Procedure Only (Urgent) - Pending Review Specialty Diagnoses / Procedures Referred By Contact Referred To Contact [facility] Diagnoses Acute diastolic CHF (congestive heart failure) (HCC) Procedures NM CARDIAC PERF STRESS/PHARM MYOCARDIAL SPECT MULTIPLE STUDIES Panfilo Oreilly MD [address] [place] [address] [facility] [address] [place] [address] Referral ID Status Reason Start Date Expiration Date Visits Requested Visits Authorized [id number] Pending Review Auto-Generat ed Referral 2 11/17/2023 1 1 * Consult, Test, Treat (Routine) - Authorized Specialty Diagnoses / Procedures Referred By Contac t Referred To Contact Cardiology Diagnoses Acute diastolic CHF (congestive heart failure) (HCC) Procedures CONSULT TO CARDIOLOGY OFFICE/OUTPATIENT [facility] 60-74 MINUTES Panfilo Oreilly MD [address] [place] [address] Referral ID Status Reason Start Date Expiration Date Visits Requested Visits Authorized [id number] Authorized PCP Requested Referral 2 10/18/2023 1 1 [facility] for referral (narrative)* Outpatient Procedure (Routine) - Pending Review Specialty Diagnoses / Procedures Referred By Aarti t Referred To [facility] Diagnoses Onychomycosis Other diabetic neurological complication associated with type 2 diabetes mellitus (HCC) Diminished pulses in lower extremity Procedures PVR ANK PRESS TAY VAS LAB NON-INVAS PHYSIOLOGIC STD EXTREMITY ART 2 LEVEL [place], Minesh [address] [place] [address] [facility] [address] [place] [address] Referral ID Status Reason Start Date Expiration Date Visits Requested Visits Authorized [id number] Pending Review Auto-Generat ed Referral 11/06/2022 11/06/2023 1 1 [facility] for referral (narrative)* Outpatient Procedure (Urgent) - Authorized Specialty Diagnoses / Procedures Referred By Contact Referred To Contact [facility] Diagnoses Tremor Procedures EPIL EEG ROUTINE ELECTROENCEPHALOGRAM REC COMA/[place] [address] [place] [address] [address] Referral ID Status Reason Start Date Expiration Date Visits Requested Visits Authorized [id number] Authorized Auto-Generat ed Referral 11/08/2022 11/08/2023 1 1 * Consult, Test, Treat (Routine) - Authorized Specialty Diagnoses / Procedures Referred By Aarti coulter Referred To Contact Neurology Diagnoses Tremor Procedures CONSULT TO NEUROLOGY OFFICE/OUTPATIENT [facility] HIGH MDM 60-74 MINUTES Panfilo Oreilly MD [address] [place] [address] Referral ID Status Reason Start Date Expiration Date Visits Requested Visits Authorized [id number] Authorized PCP Requested Referral 11/08/2022 11/08/2023 1 1 [facility] for referral (narrative)* Diagnostic Procedure Only (Routine) - Pending Review Specialty Diagnoses / Procedures Referred By Aarti coulter Referred To Contact [facility] Diagnoses Encounter for screening mammogram for breast cancer Procedures SHERYL SCREENING SCREENING MAMMOGRAPHY BI 2-VIEW BREAST INC CAD Panfilo Oreilly MD [address] [place] [address] [facility] [address] [place] [address] Referral ID Status Reason Start Date Expiration Date Visits Requested Visits Authorized [id number] Pending Review Auto-Generat ed Referral 04/30/2023 05/29/2024 1 1 [facility] for referral (narrative)No reason for referral information availableWMemorial [facility] Work Phone: Advance Directives No Advanced Directives Records FoundDocuments on File Type Date Recorded Patient Import/Export Specialist Expl anation Advance Directive(s) 02/05/2022 1:53 PM Advance Directive(s) 10/16/2021 9:28 AM Advance Directive Response Recorded Date/ Time Advance Directives No October 1:07pm Living Will No January 15, 022 7:32pm Power of Gold Burnisher No January 15, 2022 7:32pm Advance Directive Response Recorded Date/ Time Advance Directives No October 1:07pm Living Will No March 31, 2022 8: 51pm Power of Gold Burnisher No March 31, 2022 8:51pm Documents on File Type Date Recorded Patient Import/Export Specialist Expl anation Advance Directive(s) 02/05/2022 1:53 PM Advance Directive(s) 10/16/2021 9:28 AM Advance Directive Response Recorded Date/ Time Advance Directives No October 1:07pm Living Will No September 22 4:36pm Power of Gold Burnisher No September 22, 2022 4:36pm Advance Directive Response Recorded Date/ Time Advance Directives No October 1:07pm Living Will No September 22 7:35pm Power of Gold Burnisher No September 22, 2022 7:35pm Advance Directive Response Recorded Date/ Time Advance Directives No October 12:07pm Living Will No September 22 6:35pm Power of Gold Burnisher No September 22, 2022 6:35pm Advance Directive Response Recorded Date/ Time Advance Directives No October 12:07pm Living Will No November 01 2:42pm Power of Gold Burnisher No November 01, 2022 2:42pm Advance Directive Response Recorded Date/ Time Advance Directives No October 12:07pm Living Will No December 09 12:54pm Power of Gold Burnisher No December 09, 2 023 12:54pm Advance Directive Response Recorded Date/ Time Advance Directives No October 12:07pm Living Will No December 18 9:38pm Power of Gold Burnisher No December 18, 2022 9:38pm Advance Directive Response Recorded Date/ Time Advance Directives No October 12:07pm Living Will No December 19 12:31am Power of Gold Burnisher No December 19, 2022 12:31am Advance Directive Response Recorded Date/ Time Advance Directives No October 12:07pm Living Will No December 24 9:24pm Power of Gold Burnisher No December 24, 2022 9:24pm Advance Directive Response Recorded Date/ Time Advance Directives No October 12:07pm Living Will No January 13, 2 023 12:05am Power of Gold Burnisher No January 13, 2023 12:05am Advance Directive Response Recorded Date/ Time Advance Directives No October 1:07pm Living Will No February 18, 2023 5:23pm Power of Gold Burnisher No February 18 5:23pm Latest Code Status on File Code Status Date Activated Date Inactivated Comments Full Code 02/25/2023 7:20 AM Latest Code Status on File Code Status Date Activated Date Inactivated Comments Full Code 02/25/2023 7:20 AM Advance Directive Response Recorded Date/ Time Advance Directives No October 1:07pm Living Will No March 02, 2023 4:28pm Power of Gold Burnisher No March 02 4:28pm Latest Code Status [...] Date/ Time Name of Medical Power of Gold Burnisher EM THOMAS. July 14, 2023 11:40am Advance Directives No October 1:07pm Living Will No July 14 11:40am Power of Gold Burnisher Yes July 14, 2 023 11:40am Advance Directive Response Recorded Date/ Time Name of Medical Power of Gold Burnisher EM THOMAS. July 14, 2023 4:40pm Advance Directives No October 1:07pm Living Will No July 14 4:40pm Power of Gold Burnisher Yes July 14, 2 023 4:40pm Advance Directive Response Recorded Date/ Time Name of Medical Power of Gold Burnisher EM THOMAS. July 14, 2023 3:40pm Advance Directives No October 12:07pm Living Will No July 14 3 3:40pm Power of Gold Burnisher Yes July 14, 2 023 3:40pm Advance Directive Response Recorded Date/ Time Advance Directives No October 12:07pm Living Will No July 14 3:40pm Power of Gold Burnisher Yes July 14, 2 023 3:40pm Advance Directive Response Recorded Date/ Time Advance Directives No October 12:07pm Living Will No January 14 10:38pm Power of Gold Burnisher No January 14, 2024 10:38pm Date Activated Date Inactivated Comments 03/07/2023 11:33 PM Date Activated Date Inactivated Comments 02/25/2023 7:20 AM 03/07/2023 11:33 PM Advance Directive Response Recorded Date/ Time Advance Directives No October 1:07pm Living Will No March 27, 2024 10:32pm Power of Gold Burnisher No March 27 10:32pm Advance Directive Response Recorded Date/ Time Do you have a Healthcare Power of Gold Burnisher? No August 16, 2025 9:00pm Advance Directives No October 1:07pm Advance Directive Response Recorded Date/ Time Do you have a Healthcare Power of Gold Burnisher? No August 16, 2025 10:47pm Advance Directives [...] Cellulitis and abscess of right leg Aug [facility]2024 9:09pm Contusion of right great toe with damage to nail August 16, 2025 9:09pm Elevated troponin August 16, 2025 9:09pm Right leg pain August 16, 2025 9:09pm Skin ulcer of left great toe , limited to breakdown of skin August 16, 2025 9:09pm Type 2 diabetes mellitus with hyperglyce mis August 16, 2025 9:09pm Chronic venous stasis dermatitis [facility] 2024 9:09pm Cellulitis of leg August 16, 2025 9:09pm Sepsis August 16, 2025 9:09pm Family History No Family History Records Found Relationship Condition Age at Onset Recorded Date/T kamaljit father Cerebrovascular accident (CVA) Unknown Cardiac disease Unknown Diabetes mellitus Unknown mother Disorder of thyroid Unknown Reason for Referral Specialty Diagnoses / Procedures Referred By Aarti coulter Referred To Contact Panfilo Oreilly MD [address] [place] [address] Referral ID Status Reason Start Date Expiration Date Visits Re quested Visits Authorized [id number] Closed 1 1 Specialty Diagnoses / Procedures Referred By Contac t Referred To Contact Diagnoses Acute pulmonary embolism without acute cor pulmonale, unspecified pulmonary embolism type (HCC) Bacterial pneumonia Panfilo Oreilly MD [address] [place] [address] Referral ID Status Reason Start Date Expiration Date Visits Re quested Visits Authorized [id number] Closed 1 1 Referral ID Status Reason Start Date Expiration Date Visits Re quested Visits Authorized [id number] Closed 1 1 Summary Purpose Medications Administered [...] or prosecute any alcohol or drug abuse patient.[facility] the event this information is protected by the Federal Confidentiality of Alcohol and Drug Abuse Patient Records regulations: The Federal rules restrict any use of the information to criminally investigate or prosecute any alcohol or drug abuse patient.[facility]In the event this information is protected by the Federal Confidentiality of Alcohol and Drug Abuse Patient Records regulations: The Federal rules restrict any use of the information to criminally investigate or prosecute any alcohol or drug abuse patient.[facility]imaIn the event this information is protected by the Federal Confidentiality of Alcohol and Drug Abuse Patient Records regulations: The Federal rules restrict any use of the information to criminally investigate or prosecute any alcohol or drug abuse patient.[facility]In the event this information is protected by the Federal Confidentiality of Alcohol and Drug Abuse Patient Records regulations: The Federal rules restrict any use of the information to criminally investigate or prosecute any alcohol or drug abuse patient.[facility]In the event this information is protected by the Federal Confidentiality of Alcohol and Drug Abuse Patient Records regulations: The Federal rules restrict any use of the information to criminally investigate or prosecute any alcohol or drug abuse patient.[facility]imaIn the event this information is protected by the Federal Confidentiality of Alcohol and Drug Abuse Patient Records regulations: The Federal rules restrict any use of the information to criminally investigate or prosecute any alcohol or drug abuse patient.[facility]imaIn the event this information is protected by the Federal Confidentiality of Alcohol and Drug Abuse Patient Records regulations: The Federal rules restrict any use of the information to criminally investigate or prosecute any alcohol or drug abuse patient.[facility]imaIn the event this information is protected by the Federal Confidentiality of Alcohol and Drug Abuse Patient Records regulations: The Federal rules restrict any use of the information to criminally investigate or prosecute any alcohol or drug abuse patient.[facility]imaIn the event this information is protected by the Federal Confidentiality of Alcohol and Drug Abuse Patient Records regulations: The Federal rules restrict any use of the information to criminally investigate or prosecute any alcohol or drug abuse patient.[facility]imaIn the event this information is protected by the Federal Confidentiality of Alcohol and Drug Abuse Patient Records regulations: The Federal rules restrict any use of the information to criminally investigate or prosecute any alcohol or drug abuse patient.[facility]imaIn the event this information is protected by the Federal Confidentiality of Alcohol and Drug Abuse Patient Records regulations: The Federal rules restrict any use of the information to criminally investigate or prosecute any alcohol or drug abuse patient.[facility]imaIn the event this information is protected by the Federal Confidentiality of Alcohol and Drug Abuse Patient Records regulations: The Federal rules restrict any use of the information to criminally investigate or prosecute any alcohol or drug abuse patient.[facility]imaIn the event this information is protected by the Federal Confidentiality of Alcohol and Drug Abuse Patient Records regulations: The Federal rules restrict any use of the information to criminally investigate or prosecute any alcohol or drug abuse patient.[facility]imaIn the event this information is protected by the Federal Confidentiality of Alcohol and Drug Abuse Patient Records regulations: The Federal rules restrict any use of the information to criminally investigate or prosecute any alcohol or drug abuse patient.[facility]imaIn the event this information is protected by the Federal Confidentiality of Alcohol and Drug Abuse Patient Records regulations: The Federal rules restrict any use of the information to criminally investigate or prosecute any alcohol or drug abuse patient.[facility]imaIn the event this information is protected by the Federal Confidentiality of Alcohol and Drug Abuse Patient Records regulations: The Federal rules restrict any use of the information to criminally investigate or prosecute any alcohol or drug abuse patient.[facility]imaIn the event this information is protected by the Federal Confidentiality of Alcohol and Drug Abuse Patient Records regulations: The Federal rules restrict any use of the information to criminally investigate or prosecute any alcohol or drug abuse patient.[facility]imaIn the event this information is protected by the Federal Confidentiality of Alcohol and Drug Abuse Patient Records regulations: The Federal rules restrict any use of the information to criminally investigate or prosecute any alcohol or drug abuse patient.[facility]imaIn the event this information is protected by the Federal Confidentiality of Alcohol and Drug Abuse Patient Records regulations: The Federal rules restrict any use of the information to criminally investigate or prosecute any alcohol or drug abuse patient.[facility]imaIn the event this information is protected by the Federal Confidentiality of Alcohol and Drug Abuse Patient Records regulations: The Federal rules restrict any use of the information to criminally investigate or prosecute any alcohol or drug abuse patient.[facility]imaIn the event this information is protected by the Federal Confidentiality of Alcohol and Drug Abuse Patient Records regulations: The Federal rules restrict any use of the information to criminally investigate or prosecute any alcohol or drug abuse patient.[facility]imaIn the event this information is protected by the Federal Confidentiality of Alcohol and Drug Abuse Patient Records regulations: The Federal rules restrict any use of the information to criminally investigate or prosecute any alcohol or drug abuse patient.[facility]imaIn the event this information is protected by the Federal Confidentiality of Alcohol and Drug Abuse Patient Records regulations: The Federal rules restrict any use of the information to criminally investigate or prosecute any alcohol or drug abuse patient.[facility]imaIn the event this information is protected by the Federal Confidentiality of Alcohol and Drug Abuse Patient Records regulations: The Federal rules restrict any use of the information to criminally investigate or prosecute any alcohol or drug abuse patient.[facility]imaIn the event this information is protected by the Federal Confidentiality of Alcohol and Drug Abuse Patient Records regulations: The Federal rules restrict any use of the information to criminally investigate or prosecute any alcohol or drug abuse patient.[facility]imaIn the event this information is protected by the Federal Confidentiality of Alcohol and Drug Abuse Patient Records regulations: The Federal rules restrict any use of the information to criminally investigate or prosecute any alcohol or drug abuse patient.[facility]imaIn the event this information is protected by the Federal Confidentiality of Alcohol and Drug Abuse Patient Records regulations: The Federal rules restrict any use of the information to criminally investigate or prosecute any alcohol or drug abuse patient.[facility]imaIn the event this information is protected by the Federal Confidentiality of Alcohol and Drug Abuse Patient Records regulations: The Federal rules restrict any use of the information to criminally investigate or prosecute any alcohol or drug abuse patient.[facility]imaIn the event this information is protected by the Federal Confidentiality of Alcohol and Drug Abuse Patient Records regulations: The Federal rules restrict any use of the information to criminally investigate or prosecute any alcohol or drug abuse patient.[facility]imaIn the event this information is protected by the Federal Confidentiality of Alcohol and Drug Abuse Patient Records regulations: The Federal rules restrict any use of the information to criminally investigate or prosecute any alcohol or drug abuse patient.[facility]imaIn the event this information is protected by the Federal Confidentiality of Alcohol and Drug Abuse Patient Records regulations: The Federal rules restrict any use of the information to criminally investigate or prosecute any alcohol or drug abuse patient.[facility]imaIn the event this information is protected by the Federal Confidentiality of Alcohol and Drug Abuse Patient Records regulations: The Federal rules restrict any use of the information to criminally investigate or prosecute any alcohol or drug abuse patient.[facility]imaIn the event this information is protected by the Federal Confidentiality of Alcohol and Drug Abuse Patient Records regulations: The Federal rules restrict any use of the information to criminally investigate or prosecute any alcohol or drug abuse patient.[facility]imaIn the event this information is protected by the Federal Confidentiality of Alcohol and Drug Abuse Patient Records regulations: The Federal rules restrict any use of the information to criminally investigate or prosecute any alcohol or drug abuse patient.[facility]imaIn the event this information is protected by the Federal Confidentiality of Alcohol and Drug Abuse Patient Records regulations: The Federal rules restrict any use of the information to criminally investigate or prosecute any alcohol or drug abuse patient.[facility]imaIn the event this information is protected by the Federal Confidentiality of Alcohol and Drug Abuse Patient Records regulations: The Federal rules restrict any use of the information to criminally investigate or prosecute any alcohol or drug abuse patient.[facility]imaIn the event this information is protected by the Federal Confidentiality of Alcohol and Drug Abuse Patient Records regulations: The Federal rules restrict any use of the information to criminally investigate or prosecute any alcohol or drug abuse patient.[facility]imaIn the event this information is protected by the Federal Confidentiality of Alcohol and Drug Abuse Patient Records regulations: The Federal rules restrict any use of the information to criminally investigate or prosecute any alcohol or drug abuse patient.[facility]imaIn the event this information is protected by the Federal Confidentiality of Alcohol and Drug Abuse Patient Records regulations: The Federal rules restrict any use of the information to criminally investigate or prosecute any alcohol or drug abuse patient.[facility]imaIn the event this information is protected by the Federal Confidentiality of Alcohol and Drug Abuse Patient Records regulations: The Federal rules restrict any use of the information to criminally investigate or prosecute any alcohol or drug abuse patient.[facility]imaIn the event this information is protected by the Federal Confidentiality of Alcohol and Drug Abuse Patient Records regulations: The Federal rules restrict any use of the information to criminally investigate or prosecute any alcohol or drug abuse patient.[facility]imaIn the event this information is protected by the Federal Confidentiality of Alcohol and Drug Abuse Patient Records regulations: The Federal rules restrict any use of the information to criminally investigate or prosecute any alcohol or drug abuse patient.[facility]imaIn the event this information is protected by the Federal Confidentiality of Alcohol and Drug Abuse Patient Records regulations: The Federal rules restrict any use of the information to criminally investigate or prosecute any alcohol or drug abuse patient.[facility]imaIn the event this information is protected by the Federal Confidentiality of Alcohol and Drug Abuse Patient Records regulations: The Federal rules restrict any use of the information to criminally investigate or prosecute any alcohol or drug abuse patient.[facility]imaIn the event this information is protected by the Federal Confidentiality of Alcohol and Drug Abuse Patient Records regulations: The Federal rules restrict any use of the information to criminally investigate or prosecute any alcohol or drug abuse patient.[facility]imaIn the event this information is protected by the Federal Confidentiality of Alcohol and Drug Abuse Patient Records regulations: The Federal rules restrict any use of the information to criminally investigate or prosecute any alcohol or drug abuse patient.[facility]imaIn the event this information is protected by the Federal Confidentiality of Alcohol and Drug Abuse Patient Records regulations: The Federal rules restrict any use of the information to criminally investigate or prosecute any alcohol or drug abuse patient.[facility]imaIn the event this information is protected by the Federal Confidentiality of Alcohol and Drug Abuse Patient Records regulations: The Federal rules restrict any use of the information to criminally investigate or prosecute any alcohol or drug abuse patient.[facility]imaIn the event this information is protected by the Federal Confidentiality of Alcohol and Drug Abuse Patient Records regulations: The Federal rules restrict any use of the information to criminally investigate or prosecute any alcohol or drug abuse patient.[facility]imaIn the event this information is protected by the Federal Confidentiality of Alcohol and Drug Abuse Patient Records regulations: The Federal rules restrict any use of the information to criminally investigate or prosecute any alcohol or drug abuse patient.[facility]imaIn the event this information is protected by the Federal Confidentiality of Alcohol and Drug Abuse Patient Records regulations: The Federal rules restrict any use of the information to criminally investigate or prosecute any alcohol or drug abuse patient.[facility]imaIn the event this information is protected by the Federal Confidentiality of Alcohol and Drug Abuse Patient Records regulations: The Federal rules restrict any use of the information to criminally investigate or prosecute any alcohol or drug abuse patient.[facility]imaIn the event this information is protected by the Federal Confidentiality of Alcohol and Drug Abuse Patient Records regulations: The Federal rules restrict any use of the information to criminally investigate or prosecute any alcohol or drug abuse patient.[facility]imaIn the event this information is protected by the Federal Confidentiality of Alcohol and Drug Abuse Patient Records regulations: The Federal rules restrict any use of the information to criminally investigate or prosecute any alcohol or drug abuse patient.[facility]imaIn the event this information is protected by the Federal Confidentiality of Alcohol and Drug Abuse Patient Records regulations: The Federal rules restrict any use of the information to criminally investigate or prosecute any alcohol or drug abuse patient.[facility]imaIn the event this information is protected by the Federal Confidentiality of Alcohol and Drug Abuse Patient Records regulations: The Federal rules restrict any use of the information to criminally investigate or prosecute any alcohol or drug abuse patient.[facility]imaIn the event this information is protected by the Federal Confidentiality of Alcohol and Drug Abuse Patient Records regulations: The Federal rules restrict any use of the information to criminally investigate or prosecute any alcohol or drug abuse patient.[facility]imaIn the event this information is protected by the Federal Confidentiality of Alcohol and Drug Abuse Patient Records regulations: The Federal rules restrict any use of the information to criminally investigate or prosecute any alcohol or drug abuse patient.[facility]imaIn the event this information is protected by the Federal Confidentiality of Alcohol and Drug Abuse Patient Records regulations: The Federal rules restrict any use of the information to criminally investigate or prosecute any alcohol or drug abuse patient.[facility]imaIn the event this information is protected by the Federal Confidentiality of Alcohol and Drug Abuse Patient Records regulations: The Federal rules restrict any use of the information to criminally investigate or prosecute any alcohol or drug abuse patient.[facility]imaIn the event this information is protected by the Federal Confidentiality of Alcohol and Drug Abuse Patient Records regulations: The Federal rules restrict any use of the information to criminally investigate or prosecute any alcohol or drug abuse patient.[facility]imaIn the event this information is protected by the Federal Confidentiality of Alcohol and Drug Abuse Patient Records regulations: The Federal rules restrict any use of the information to criminally investigate or prosecute any alcohol or drug abuse patient.[facility]imaIn the event this information is protected by the Federal Confidentiality of Alcohol and Drug Abuse Patient Records regulations: The Federal rules restrict any use of the information to criminally investigate or prosecute any alcohol or drug abuse patient.[facility]imaIn the event this information is protected by the Federal Confidentiality of Alcohol and Drug Abuse Patient Records regulations: The Federal rules restrict any use of the information to criminally investigate or prosecute any alcohol or drug abuse patient.[facility]imaIn the event this information is protected by the Federal Confidentiality of Alcohol and Drug Abuse Patient Records regulations: The Federal rules restrict any use of the information to criminally investigate or prosecute any alcohol or drug abuse patient.[facility]imaIn the event this information is protected by the Federal Confidentiality of Alcohol and Drug Abuse Patient Records regulations: The Federal rules restrict any use of the information to criminally investigate or prosecute any alcohol or drug abuse patient.[facility]imaIn the event this information is protected by the Federal Confidentiality of Alcohol and Drug Abuse Patient Records regulations: The Federal rules restrict any use of the information to criminally investigate or prosecute any alcohol or drug abuse patient.[facility]imaIn the event this information is protected by the Federal Confidentiality of Alcohol and Drug Abuse Patient Records regulations: The Federal rules restrict any use of the information to criminally investigate or prosecute any alcohol or drug abuse patient.[facility]imaIn the event this information is protected by the Federal Confidentiality of Alcohol and Drug Abuse Patient Records regulations: The Federal rules restrict any use of the information to criminally investigate or prosecute any alcohol or drug abuse patient.[facility]imaIn the event this information is protected by the Federal Confidentiality of Alcohol and Drug Abuse Patient Records regulations: The Federal rules restrict any use of the information to criminally investigate or prosecute any alcohol or drug abuse patient.[facility]imaIn the event this information is protected by the Federal Confidentiality of Alcohol and Drug Abuse Patient Records regulations: The Federal rules restrict any use of the information to criminally investigate or prosecute any alcohol or drug abuse patient.[facility]imaIn the event this information is protected by the Federal Confidentiality of Alcohol and Drug Abuse Patient Records regulations: The Federal rules restrict any use of the information to criminally investigate or prosecute any alcohol or drug abuse patient.[facility]imaIn the event this information is protected by the Federal Confidentiality of Alcohol and Drug Abuse Patient Records regulations: The Federal rules restrict any use of the information to criminally investigate or prosecute any alcohol or drug abuse patient.[facility]imaIn the event this information is protected by the Federal Confidentiality of Alcohol and Drug Abuse Patient Records regulations: The Federal rules restrict any use of the information to criminally investigate or prosecute any alcohol or drug abuse patient.[facility]imaIn the event this information is protected by the Federal Confidentiality of Alcohol and Drug Abuse Patient Records regulations: The Federal rules restrict any use of the information to criminally investigate or prosecute any alcohol or drug abuse patient.[facility]imaIn the event this information is protected by the Federal Confidentiality of Alcohol and Drug Abuse Patient Records regulations: The Federal rules restrict any use of the information to criminally investigate or prosecute any alcohol or drug abuse patient.[facility]imaIn the event this information is protected by the Federal Confidentiality of Alcohol and Drug Abuse Patient Records regulations: The Federal rules restrict any use of the information to criminally investigate or prosecute any alcohol or drug abuse patient.[facility]imaIn the event this information is protected by the Federal Confidentiality of Alcohol and Drug Abuse Patient Records regulations: The Federal rules restrict any use of the information to criminally investigate or prosecute any alcohol or drug abuse patient.[facility]imaIn the event this information is protected by the Federal Confidentiality of Alcohol and Drug Abuse Patient Records regulations: The Federal rules restrict any use of the information to criminally investigate or prosecute any alcohol or drug abuse patient.[facility]imaIn the event this information is protected by the Federal Confidentiality of Alcohol and Drug Abuse Patient Records regulations: The Federal rules restrict any use of the information to criminally investigate or prosecute any alcohol or drug abuse patient.[facility]imaIn the event this information is protected by the Federal Confidentiality of Alcohol and Drug Abuse Patient Records regulations: The Federal rules restrict any use of the information to criminally investigate or prosecute any alcohol or drug abuse patient.[facility]imaIn the event this information is protected by the Federal Confidentiality of Alcohol and Drug Abuse Patient Records regulations: The Federal rules restrict any use of the information to criminally investigate or prosecute any alcohol or drug abuse patient.[facility]imaIn the event this information is protected by the Federal Confidentiality of Alcohol and Drug Abuse Patient Records regulations: The Federal rules restrict any use of the information to criminally investigate or prosecute any alcohol or drug abuse patient.[facility]imaIn the event this information is protected by the Federal Confidentiality of Alcohol and Drug Abuse Patient Records regulations: The Federal rules restrict any use of the information to criminally investigate or prosecute any alcohol or drug abuse patient.[facility]imaIn the event this information is protected by the Federal Confidentiality of Alcohol and Drug Abuse Patient Records regulations: The Federal rules restrict any use of the information to criminally investigate or prosecute any alcohol or drug abuse patient.[facility]imaIn the event this information is protected by the Federal Confidentiality of Alcohol and Drug Abuse Patient Records regulations: The Federal rules restrict any use of the information to criminally investigate or prosecute any alcohol or drug abuse patient.[facility] LimaIn the event this information is protected by the Federal Confidentiality of Alcohol and Drug Abuse Patient Records regulations: The Federal rules restrict any use of the information to criminally investigate or prosecute any alcohol or drug abuse patient.[facility]imaIn the event this information is protected by the Federal Confidentiality of Alcohol and Drug Abuse Patient Records regulations: The Federal rules restrict any use of the information to criminally investigate or prosecute any alcohol or drug abuse patient.[facility]imaIn the event this information is protected by the Federal Confidentiality of Alcohol and Drug Abuse Patient Records regulations: The Federal rules restrict any use of the information to criminally investigate or prosecute any alcohol or drug abuse patient.[facility]imaIn the event this information is protected by the Federal Confidentiality of Alcohol and Drug Abuse Patient Records regulations: The Federal rules restrict any use of the information to criminally investigate or prosecute any alcohol or drug abuse patient.[facility]imaIn the event this information is protected by the Federal Confidentiality of Alcohol and Drug Abuse Patient Records regulations: The Federal rules restrict any use of the information to criminally investigate or prosecute any alcohol or drug abuse patient.[facility]imaIn the event this information is protected by the Federal Confidentiality of Alcohol and Drug Abuse Patient Records regulations: The Federal rules restrict any use of the information to criminally investigate or prosecute any alcohol or drug abuse patient.[facility]imaIn the event this information is protected by the Federal Confidentiality of Alcohol and Drug Abuse Patient Records regulations: The Federal rules restrict any use of the information to criminally investigate or prosecute any alcohol or drug abuse patient.[facility]imaIn the event this information is protected by the Federal Confidentiality of Alcohol and Drug Abuse Patient Records regulations: The Federal rules restrict any use of the information to criminally investigate or prosecute any alcohol or drug abuse patient.[facility]imaIn the event this information is protected by the Federal Confidentiality of Alcohol and Drug Abuse Patient Records regulations: The Federal rules restrict any use of the information to criminally investigate or prosecute any alcohol or drug abuse patient.[facility]imaIn the event this information is protected by the Federal Confidentiality of Alcohol and Drug Abuse Patient Records regulations: The Federal rules restrict any use of the information to criminally investigate or prosecute any alcohol or drug abuse patient.[facility]imaIn the event this information is protected by the Federal Confidentiality of Alcohol and Drug Abuse Patient Records regulations: The Federal rules restrict any use of the information to criminally investigate or prosecute any alcohol or drug abuse patient.[facility]imaIn the event this information is protected by the Federal Confidentiality of Alcohol and Drug Abuse Patient Records regulations: The Federal rules restrict any use of the information to criminally investigate or prosecute any alcohol or drug abuse patient.[facility]imaIn the event this information is protected by the Federal Confidentiality of Alcohol and Drug Abuse Patient Records regulations: The Federal rules restrict any use of the information to criminally investigate or prosecute any alcohol or drug abuse patient.[facility]imaIn the event this information is protected by the Federal Confidentiality of Alcohol and Drug Abuse Patient Records regulations: The Federal rules restrict any use of the information to criminally investigate or prosecute any alcohol or drug abuse patient.[facility]imaIn the event this information is protected by the Federal Confidentiality of Alcohol and Drug Abuse Patient Records regulations: The Federal rules restrict any use of the information to criminally investigate or prosecute any alcohol or drug abuse patient.[facility]imaIn the event this information is protected by the Federal Confidentiality of Alcohol and Drug Abuse Patient Records regulations: The Federal rules restrict any use of the information to criminally investigate or prosecute any alcohol or drug abuse patient.[facility]imaIn the event this information is protected by the Federal Confidentiality of Alcohol and Drug Abuse Patient Records regulations: The Federal rules restrict any use of the information to criminally investigate or prosecute any alcohol or drug abuse patient.[facility]imaIn the event this information is protected by the Federal Confidentiality of Alcohol and Drug Abuse Patient Records regulations: The Federal rules restrict any use of the information to criminally investigate or prosecute any alcohol or drug abuse patient.[facility]imaIn the event this information is protected by the Federal Confidentiality of Alcohol and Drug Abuse Patient Records regulations: The Federal rules restrict any use of the information to criminally investigate or prosecute any alcohol or drug abuse patient.[facility]imaIn the event this information is protected by the Federal Confidentiality of Alcohol and Drug Abuse Patient Records regulations: The Federal rules restrict any use of the information to criminally investigate or prosecute any alcohol or drug abuse patient.[facility]imaIn the event this information is protected by the Federal Confidentiality of Alcohol and Drug Abuse Patient Records regulations: The Federal rules restrict any use of the information to criminally investigate or prosecute any alcohol or drug abuse patient.[facility]imaIn the event this information is protected by the Federal Confidentiality of Alcohol and Drug Abuse Patient Records regulations: The Federal rules restrict any use of the information to criminally investigate or prosecute any alcohol or drug abuse patient.[facility]imaIn the event this information is protected by the Federal Confidentiality of Alcohol and Drug Abuse Patient Records regulations: The Federal rules restrict any use of the information to criminally investigate or prosecute any alcohol or drug abuse patient.[facility]imaIn the event this information is protected by the Federal Confidentiality of Alcohol and Drug Abuse Patient Records regulations: The Federal rules restrict any use of the information to criminally investigate or prosecute any alcohol or drug abuse patient.[facility]imaIn the event this information is protected by the Federal Confidentiality of Alcohol and Drug Abuse Patient Records regulations: The Federal rules restrict any use of the information to criminally investigate or prosecute any alcohol or drug abuse patient.[facility]imaIn the event this information is protected by the Federal Confidentiality of Alcohol and Drug Abuse Patient Records regulations: The Federal rules restrict any use of the information to criminally investigate or prosecute any alcohol or drug abuse patient.[facility]imaIn the event this information is protected by the Federal Confidentiality of Alcohol and Drug Abuse Patient Records regulations: The Federal rules restrict any use of the information to criminally investigate or prosecute any alcohol or drug abuse patient.[facility]imaIn the event this information is protected by the Federal Confidentiality of Alcohol and Drug Abuse Patient Records regulations: The Federal rules restrict any use of the information to criminally investigate or prosecute any alcohol or drug abuse patient.[facility]imaIn the event this information is protected by the Federal Confidentiality of Alcohol and Drug Abuse Patient Records regulations: The Federal rules restrict any use of the information to criminally investigate or prosecute any alcohol or drug abuse patient.[facility]imaIn the event this information is protected by the Federal Confidentiality of Alcohol and Drug Abuse Patient Records regulations: The Federal rules restrict any use of the information to criminally investigate or prosecute any alcohol or drug abuse patient.[facility]imaIn the event this information is protected by the Federal Confidentiality of Alcohol and Drug Abuse Patient Records regulations: The Federal rules restrict any use of the information to criminally investigate or prosecute any alcohol or drug abuse patient.[facility]imaIn the event this information is protected by the Federal Confidentiality of Alcohol and Drug Abuse Patient Records regulations: The Federal rules restrict any use of the information to criminally investigate or prosecute any alcohol or drug abuse patient.[facility]imaIn the event this information is protected by the Federal Confidentiality of Alcohol and Drug Abuse Patient Records regulations: The Federal rules restrict any use of the information to criminally investigate or prosecute any alcohol or drug abuse patient.[facility]imaIn the event this information is protected by the Federal Confidentiality of Alcohol and Drug Abuse Patient Records regulations: The Federal rules restrict any use of the information to criminally investigate or prosecute any alcohol or drug abuse patient.[facility]imaIn the event this information is protected by the Federal Confidentiality of Alcohol and Drug Abuse Patient Records regulations: The Federal rules restrict any use of the information to criminally investigate or prosecute any alcohol or drug abuse patient.[facility]imaIn the event this information is protected by the Federal Confidentiality of Alcohol and Drug Abuse Patient Records regulations: The Federal rules restrict any use of the information to criminally investigate or prosecute any alcohol or drug abuse patient.[facility] LimaIn the event this information is protected by the Federal Confidentiality of Alcohol and Drug Abuse Patient Records regulations: The Federal rules restrict any use of the information to criminally investigate or prosecute any alcohol or drug abuse patient.[facility]imaIn the event this information is protected by the Federal Confidentiality of Alcohol and Drug Abuse Patient Records regulations: The Federal rules restrict any use of the information to criminally investigate or prosecute any alcohol or drug abuse patient.[facility]imaIn the event this information is protected by the Federal Confidentiality of Alcohol and Drug Abuse Patient Records regulations: The Federal rules restrict any use of the information to criminally investigate or prosecute any alcohol or drug abuse patient.[facility]imaIn the event this information is protected by the Federal Confidentiality of Alcohol and Drug Abuse Patient Records regulations: The Federal rules restrict any use of the information to criminally investigate or prosecute any alcohol or drug abuse patient.[facility]imaIn the event this information is protected by the Federal Confidentiality of Alcohol and Drug Abuse Patient Records regulations: The Federal rules restrict any use of the information to criminally investigate or prosecute any alcohol or drug abuse patient.[facility]imaIn the event this information is protected by the Federal Confidentiality of Alcohol and Drug Abuse Patient Records regulations: The Federal rules restrict any use of the information to criminally investigate or prosecute any alcohol or drug abuse patient.[facility]imaIn the event this information is protected by the Federal Confidentiality of Alcohol and Drug Abuse Patient Records regulations: The Federal rules restrict any use of the information to criminally investigate or prosecute any alcohol or drug abuse patient.[facility]imaIn the event this information is protected by the Federal Confidentiality of Alcohol and Drug Abuse Patient Records regulations: The Federal rules restrict any use of the information to criminally investigate or prosecute any alcohol or drug abuse patient.[facility]imaIn the event this information is protected by the Federal Confidentiality of Alcohol and Drug Abuse Patient Records regulations: The Federal rules restrict any use of the information to criminally investigate or prosecute any alcohol or drug abuse patient.[facility]imaIn the event this information is protected by the Federal Confidentiality of Alcohol and Drug Abuse Patient Records regulations: The Federal rules restrict any use of the information to criminally investigate or prosecute any alcohol or drug abuse patient.[facility] LimaIn the event this information is protected by the Federal Confidentiality of Alcohol and Drug Abuse Patient Records regulations: The Federal rules restrict any use of the information to criminally investigate or prosecute any alcohol or drug abuse patient.[facility] LimaIn the event this information is protected by the Federal Confidentiality of Alcohol and Drug Abuse Patient Records regulations: The Federal rules restrict any use of the information to criminally investigate or prosecute any alcohol or drug abuse patient.[facility] LimaIn the event this information is protected by the Federal Confidentiality of Alcohol and Drug Abuse Patient Records regulations: The Federal rules restrict any use of the information to criminally investigate or prosecute any alcohol or drug abuse patient.[facility]imaIn the event this information is protected by the Federal Confidentiality of Alcohol and Drug Abuse Patient Records regulations: The Federal rules restrict any use of the information to criminally investigate or prosecute any alcohol or drug abuse patient.[facility]imaIn the event this information is protected by the Federal Confidentiality of Alcohol and Drug Abuse Patient Records regulations: The Federal rules restrict any use of the information to criminally investigate or prosecute any alcohol or drug abuse patient.[facility] Reason for Visit (unrecogniz ed section and [...] medications and diabetic supplies be sent to [employer] [facility] in [place]. Reason Onset Date Comments Refill Request 07/24/2022 Reason Comments Consult Colonoscopy Reason Onset Date Comments Refill Request 07/05/2022 Refill Request 08/16/2022 Reason Onset Date Comments Refill Request 08/27/2022 Reason Onset Date Comments Refill Request 10/04/2022 Reason Comments Prescription Clarification Reason Comments Results No answer and VM not set up. [employer] message sent to request patient call in [...] Transition Of Care 01/02/2023 TCM initial o utreach-dc'd from [facility] 01/01/23 Reason Comments Missed Appointment [facility] Reason Comments Medication Request Reason Onset Date Comments Transition Of Care 01/14/2023 TCM follow-up readmitted to hospital Reason Onset Date Comments Transition Of Care 01/17/2023 TCM Pharmacy- Hospital discharge 01/16/23 Reason Comments [facility] Reason Onset Date Comments Transition Of Care 01/28/2023 TCM follow up Reason Onset Date Comments Refill Request 02/03/2023 Reason Comments [facility] PT Order Request Reason Comments Home Care MD to follow Reason Comments Hospital F/U Reason Comments Fax last Office Vist Notes Reason Onset Date Comments Transition Of Care 02/21/2023 TCM Pharmacy- Hospital discharge 02/20/23 Reason Onset Date Comments Transition Of Care 02/21/2023 TCM Initial A [facility] Hospital Discharge 02/20/23 Specialty Diagnoses / Procedures Referred By Aarti coulter Referred To Contact [facility] Home Care [address] [place] [id number] Referral ID Status Reason Start Date Expiration Date Visits Re quested Visits Authorized [id number] 1 1 Reason Comments Home Care Confirmation Call Reason Comments Home Care Reason Comments Home Care Request for home [facility] aide referral. Reason Comments Hospital F/U [facility] dx: pneumonia Di scharged on 03/05/2023ompleted prednisone Referral ID Status Reason Start Date Expiration Date Visits Re quested Visits Authorized [id number] 1 1 Reason Comments Stage II pressure [...] Care 06/06/2023 TCM Initial O utreach: OON [facility] [place] 05/31/23, KERRY Reason Onset Date Comments Opened In Error 06/25/2023 Reason Comments Insurance Authorization Test strips/lanc ets Reason Onset Date Comments Refill Request 06/17/2023 Reason Onset Date Comments Refill Request 07/23/2023 Reason Onset Date Comments Refill Request 07/29/2023 Reason Comments Opened In Error Reason Onset Date Comments Refill Request 08/01/2023 Reason Comments Home Jail care change of insurance Care Teams (unrecognized sec tion and content) [employer] Specialty Start Date End Date Panfilo Oreilly MD [address] [place], [place] [address] PCP - General Family Practice 02/12/17 Shreya Mccray Endocrinology 07/23/18 [place] Dumont [address] [place] [address] Specialty Central Communications Specialist Pulmonary Disease 12/23/18 Brandee Cotter (Auto Adjudication Specialist) [address], [place] [id number] Consulting Endocrinology 11/09/19 [place] Dumont [address] [place] [address] Consulting Pulmonary Disease 11/12/19 Robert Sanchez [facility] [address] [place] [address] Pharmacist Pharmacy 09/06/21 [facility] 12/17/17 [facility] Wound Center 07/23/18 [facility] 06/20/20 [employer] Relationship Specialty Start Date End Date Panfilo Oreilly MD [address] [place] [address] PCP - General Family Practice 02/12/17 Shreya Mccray Endocrinology 07/23/18 [place] Dumont [address] [place] [address] Specialty Central Communications Specialist Pulmonary Disease 12/23/18 Brandee Cotter (Auto Adjudication Specialist) [address] [place] [address] Consulting Endocrinology 11/09/19 [place] Dumont [address] [place] [address] Consulting Pulmonary Disease 11/12/19 Robert Sanchez, [facility] [address] [place] [address] Pharmacist Pharmacy 09/06/21 [facility] 12/17/17 [facility] Wound Center 07/23/18 [facility] [place] [facility] 06/20/20 [employer] Relationship Specialty Start Date End Date Panfilo Oreilly MD [address] [place] [address] PCP - General Family Practice 02/12/17 Shreya Mccray Endocrinology 07/23/18 [place] Dumont [address] [place] [address] Specialty Central Communications Specialist Pulmonary Disease 12/23/18 Brandee Cotter (Auto Adjudication Specialist) [address] [place] [address] Consulting Endocrinology 11/09/19 [place] Dumont [address] [place] [address] Consulting Pulmonary Disease 11/12/19 [facility] [address] [facility] [place] [address] Pharmacist Pharmacy 09/06/21 [facility] 12/17/17 [facility] Wound Center 07/23/18 [facility] 06/20/20 [employer] Relationship Specialty Start Date End Date Panfilo Oreilly MD [address] [place] [address] PCP - General Family Practice 02/12/17 Shreya Mccray Endocrinology 07/23/18 [place] Dumont [address] [place] [address] Specialty Central Communications Specialist Pulmonary Disease 12/23/18 Brandee Cotter (Auto Adjudication Specialist) [address] [place] [address] Consulting Endocrinology 11/09/19 [place] Dumont [address] [place] [address] Consulting Pulmonary Disease 11/12/19 Robert Sanchez, [facility] [address] [place] [address] Pharmacist Pharmacy 09/06/21 [facility] 12/17/17 [facility] Wound Center 07/23/18 [facility] 06/20/20 [employer] Relationship Specialty Start Date End Date Panfilo Oreilly MD [address] [place] [address] PCP - General Family Practice 02/12/17 Shreya Mccray Endocrinology 07/23/18 [place] Dumont [address] [place] [address] Specialty Central Communications Specialist Pulmonary Disease 12/23/18 Brandee Cotter (Auto Adjudication Specialist) [address], [place] [id number] Consulting Endocrinology 11/09/19 [place] Dumont [address] [place] [address] Consulting Pulmonary Disease 11/12/19 Robert Sanchez, [facility] [address] [place] [address] Pharmacist Pharmacy 09/06/21 [facility] 12/17/17 [facility] Wound Center 07/23/18 [facility] 06/20/20 [employer] Relationship Specialty Start Date End Date Panfilo Oreilly MD [address] [place] [address] PCP - General Family Practice 02/12/17 Shreya Mccray Endocrinology 07/23/18 [place] Dumont [address] [place] [address] Specialty Central Communications Specialist Pulmonary Disease 12/23/18 Brandee Cotter (Auto Adjudication Specialist) [address] [place] [address] Consulting Endocrinology 11/09/19 [place] Dumont [address] [place] [address] Consulting Pulmonary Disease 11/12/19 [facility] [address] [facility] [place] [address] Pharmacist Pharmacy 09/06/21 [facility] 12/17/17 [facility] Wound Center 07/23/18 [facility] Patients 06/20/20 [employer] Relationship Specialty Start Date End Date Panfilo Oreilly MD [address] [place] [address] PCP - General Family Practice 02/12/17 Shreya Mccray Endocrinology 07/23/18 [place] Dumont [address] [place] [address] Specialty Central Communications Specialist Pulmonary Disease 12/23/18 Brandee Cotter (Auto Adjudication Specialist) [address] [place] [address] Consulting Endocrinology 11/09/19 [place] Dumont [address] [place] [address] Consulting Pulmonary Disease 11/12/19 Robert Sanchez, [facility] [address] [facility] [place] [address] Pharmacist Pharmacy 09/06/21 [facility] 12/17/17 [facility] Wound Center 07/23/18 [facility] 06/20/20 [employer] Relationship Specialty Start Date End Date Panfilo Oreilly MD [address] [facility] [address] PCP - General Family Practice 02/12/17 Shreya Mccray Endocrinology 07/23/18 [place] Dumont [address] [place] [address] Specialty Central Communications Specialist Pulmonary Disease 12/23/18 Brandee Cotter ([facility]) [address], [place] [id number] Consulting Endocrinology 11/09/19 [place] Dumont [address] [place] [address] Consulting Pulmonary Disease 11/12/19 Robert Sanchez, [facility] [address] [place] [place] [address] Pharmacist Pharmacy 09/06/21 [facility] 12/17/17 [facility] Wound Center 07/23/18 [facility] 06/20/20 [employer] Relationship Specialty Start Date End Date Panfilo Oreilly MD [address] [facility] [place] [address] PCP - General Family Practice 02/12/17 Shreya Mccray Endocrinology 07/23/18 [place] Dumont [address] [place] [address] Specialty Central Communications Specialist Pulmonary Disease 12/23/18 Brandee Cotter (Auto Adjudication Specialist) [address], [place] [id number] Consulting Endocrinology 11/09/19 [place] Dumont [address] [place] [address] Consulting Pulmonary Disease 11/12/19 [facility] [address] [place] [place] [address] Pharmacist Pharmacy 09/06/21 [facility] 12/17/17 [facility] [facility] 07/23/18 [facility] Patients 06/20/20 Assembler Mechanical Ordnance Relationship Specialty Start Date End Date Panfilo Oreilly MD [address] [place] [address] PCP - General Family Practice 02/12/17 Shreya Mccray Endocrinology 07/23/18 [place] Dumont [address] [place] [address] Specialty Central Communications Specialist Pulmonary Disease 12/23/18 Brandee Cotter (Auto Adjudication Specialist) [address] [place] [address] Consulting Endocrinology 11/09/19 [place] Dumont [address] [place] [address] Consulting Pulmonary Disease 11/12/19 [facility] [address] [place] [address] Pharmacist Pharmacy 09/06/21 [facility] 12/17/17 [facility] W[facility] 07/23/18 [facility] Patients 06/20/20 Assembler Mechanical Ordnance Relationship Specialty Start Date End Date Panfilo Oreilly MD [address] [facility] [place] [address] PCP - General Family Practice 02/12/17 Shreya Mccray Endocrinology 07/23/18 [place] Dumont [address] [place] [address] Specialty Central Communications Specialist Pulmonary Disease 12/23/18 Brandee Cotter (Auto Adjudication Specialist) [address], [place] [id number] Consulting Endocrinology 11/09/19 [place] Dumont [address] [place] [address] Consulting Pulmonary Disease 11/12/19 Robert Sanchez Formerly [facility] [address] [facility] [place] [address] Pharmacist Pharmacy 09/06/21 [facility] 12/17/17 [facility] Wound Center 07/23/18 [facility] Patients 06/20/20 Assembler Mechanical Ordnance Relationship Specialty Start Date End Date Panfilo Oreilly MD [address] [facility] [address] PCP - General Family Practice 02/12/17 Shreya Mccray Endocrinology 07/23/18 [place] Dumont [address] [place] [address] Specialty Central Communications Specialist Pulmonary Disease 12/23/18 Brandee Cotter (Auto Adjudication Specialist) [address] [place] [address] Consulting Endocrinology 11/09/19 [place] Dumont [address] [place] [address] Consulting Pulmonary Disease 11/12/19 [facility] [address] [facility] [place] [address] Pharmacist Pharmacy 09/06/21 [facility] 12/17/17 [facility] Wound Center 07/23/18 [facility] Patients 06/20/20 Assembler Mechanical Ordnance Relationship Specialty Start Date End Date Panfilo Oreilly MD [address] [facility] [address] PCP - General Family Practice 02/12/17 Shreya Mccray Endocrinology 07/23/18 [place] Dumont [address] [place] [address] Specialty Central Communications Specialist Pulmonary Disease 12/23/18 Brandee Cotter (Auto Adjudication Specialist) [address] [place] [address] Consulting Endocrinology 11/09/19 [place] Dumont [address] [place] [address] Consulting Pulmonary Disease 11/12/19 [facility] [address] [facility] [place] [address] Pharmacist Pharmacy 09/06/21 [facility] 12/17/17 [facility] Wound Center 07/23/18 [facility] Patients 06/20/20 Assembler Mechanical Ordnance Relationship Specialty Start Date End Date Panfilo Oreilly MD [address] [facility] [address] PCP - General Family Practice 02/12/17 Shreya Mccray Endocrinology 07/23/18 [place] Dumont [address] [place] [address] Specialty Central Communications Specialist Pulmonary Disease 12/23/18 Brandee Cotter (Auto Adjudication Specialist) [address] [place] [address] Consulting Endocrinology 11/09/19 [place] Dumont [address] [place] [address] Consulting Pulmonary Disease 11/12/19 [facility] [address] [place] [address] Pharmacist Pharmacy 09/06/21 [facility] 12/17/17 [facility] Wound Center 07/23/18 [facility] Patients 06/20/20 Assembler Mechanical Ordnance Relationship Specialty Start Date End Date Panfilo Oreilly MD [address] [place] [address] PCP - General Family Practice 02/12/17 Shreya Mccray Endocrinology 07/23/18 [place] Dumont [address] [place] [address] Specialty Central Communications Specialist Pulmonary Disease 12/23/18 Brandee Cotter (Auto Adjudication Specialist) [address] [place] [address] Consulting Endocrinology 11/09/19 [place] Dumont [address] [address] Consulting Pulmonary Disease 11/12/19 Robert Sanchez, Formerly [facility] [address] [facility] [place] [address] Pharmacist Pharmacy 09/06/21 [facility] 12/17/17 [facility] Wound Center 07/23/18 [place] Patients 06/20/20 Assembler Mechanical Ordnance Relationship Specialty Start Date End Date Panfilo Oreilly MD [address] [facility] [address] PCP - General Family Practice 02/12/17 Shreya Mccray Endocrinology 07/23/18 [place] Dumont [address] [place] [address] Specialty Central Communications Specialist Pulmonary Disease 12/23/18 Brandee Cotter (Auto Adjudication Specialist) [address], [place] [id number] Consulting Endocrinology 11/09/19 [place] Dumont [address] [place] [address] Consulting Pulmonary Disease 11/12/19 Robert Sanchez, [facility] [address] [facility] [place] [address] Pharmacist Pharmacy 09/06/21 [facility] 12/17/17 [facility] Wound Center 07/23/18 [facility] Patients 06/20/20 Assembler Mechanical Ordnance Relationship Specialty Start Date End Date Panfilo Oreilly MD [address] [place] [address] PCP - General Family Practice 02/12/17 Shreya Mccray Endocrinology 07/23/18 [place] Dumont [address] [place] [address] Specialty Central Communications Specialist Pulmonary Disease 12/23/18 Brandee Cotter ([facility]) [address], [place] [id number] Consulting Endocrinology 11/09/19 [place] Dumont [address] [place] [address] Consulting Pulmonary Disease 11/12/19 [facility] [address] [place] [address] Pharmacist Pharmacy 09/06/21 [facility] 12/17/17 [facility] Wound Center 07/23/18 [facility] Patients 06/20/20 Assembler Mechanical Ordnance Relationship Specialty Start Date End Date Panfilo Oreilly MD [address] [place] [address] PCP - General Family Practice 02/12/17 Shreya Mccray MD Endocrinology 07/23/18 [place] Dumotn [address] [place] [address] Specialty Central Communications Specialist Pulmonary Disease 12/23/18 Brandee Cotter (Auto Adjudication Specialist) [address] [place] [address] Consulting Endocrinology 11/09/19 [place] Dumont [address] [place] [address] Consulting Pulmonary Disease 11/12/19 [facility] [address] [facility] [place] [address] Pharmacist Pharmacy 09/06/21 [facility] 12/17/17 [facility] Wound Center 07/23/18 [facility] Patients 06/20/20 Assembler Mechanical Ordnance Relationship Specialty Start Date End Date Panfilo Oreilly MD [address] [facility] [address] PCP - General Family Practice 02/12/17 Shreya Mccray MD Endocrinology 07/23/18 [place] Dumont [address] [place] [address] Specialty Central Communications Specialist Pulmonary Disease 12/23/18 Brandee Cotter (Auto Adjudication Specialist) [address] [place] [address] Consulting Endocrinology 11/09/19 [place] Dumont [address] [place] [address] Consulting Pulmonary Disease 11/12/19 Robert Sanchez [facility] [address] [facility] [place] [address] Pharmacist Pharmacy 09/06/21 [facility] 12/17/17 [facility] Wound Center 07/23/18 [facility] Patients 06/20/20 Assembler Mechanical Ordnance Relationship Specialty Start Date End Date Panfilo Oreilly MD [address] [facility] [place] [address] PCP - General Family Practice 02/12/17 Shreya Mccray MD Endocrinology 07/23/18 [place] Dumont [address] [place] [address] Specialty Central Communications Specialist Pulmonary Disease 12/23/18 Brandee Cotter (Auto Adjudication Specialist) [address] [place] [address] Consulting Endocrinology 11/09/19 [place] Dumont [address] [place] [address] Consulting Pulmonary Disease 11/12/19 [facility] [address] [facility] [place] [address] Pharmacist Pharmacy 09/06/21 [facility] 12/17/17 [facility] Wound Center 07/23/18 [facility] Patients 06/20/20 Assembler Mechanical Ordnance Relationship Specialty Start Date End Date Panfilo Oreilly MD [address] [facility] [place] [address] PCP - General Family Practice 02/12/17 Shreya Mccray MD Endocrinology 07/23/18 [place] Dumont [address] [place] [address] Specialty Central Communications Specialist Pulmonary Disease 12/23/18 Brandee Cotter (Auto Adjudication Specialist) [address] [place] [address] Consulting Endocrinology 11/09/19 [place] Dumont [address] [place] [address] Consulting Pulmonary Disease 11/12/19 [facility] [address] [place] [address] Pharmacist Pharmacy 09/06/21 [facility] 12/17/17 [facility] Wound Center 07/23/18 [facility] Patients 06/20/20 Assembler Mechanical Ordnance Relationship Specialty Start Date End Date Panfilo Oreilly MD [address] [facility] [address] PCP - General Family Practice 02/12/17 Shreya Mccray MD Endocrinology 07/23/18 [place] Dumont [address] [place] [address] Specialty Central Communications Specialist Pulmonary Disease 12/23/18 Brandee Cotter (Auto Adjudication Specialist) [address] [place] [address] Consulting Endocrinology 11/09/19 [place] Dumont [address] [place] [address] Consulting Pulmonary Disease 11/12/19 Laura[facility] [address] [facility] [place] [address] Pharmacist Pharmacy 09/06/21 [facility] 12/17/17 [facility] Wound Center 07/23/18 [facility] Patients 06/20/20 Assembler Mechanical Ordnance Relationship Specialty Start Date End Date [place]filo Oreilly MD [address] [facility] [address] PCP - General Family Practice 02/12/17 Shreya Mccray MD Endocrinology 07/23/18 [place] Dumont [address] [place] [address] Specialty Central Communications Specialist Pulmonary Disease 12/23/18 Brandee Cotter (Auto Adjudication Specialist) [address] [place] [address] Consulting Endocrinology 11/09/19 [place] Dumont [address] [place] [address] Consulting Pulmonary Disease 11/12/19 Robert Sanchez Former[facility] [address] [facility] [address] Pharmacist Pharmacy 09/06/21 [facility] 12/17/17 [facility] Wound Center 07/23/18 [place] Patients 06/20/20 Assembler Mechanical Ordnance Relationship Specialty Start Date End Date Panfilo Oreilly MD [address] [place] [address] PCP - General Family Practice 02/12/17 Shreya Mccray MD Endocrinology 07/23/18 [place] Dumont [address] [place] [address] Specialty Central Communications Specialist Pulmonary Disease 12/23/18 Brandee Cotter (Auto Adjudication Specialist) [address] [place] [address] Consulting Endocrinology 11/09/19 [place] Dumont [address] [place] [address] Consulting Pulmonary Disease 11/12/19 [facility] [address] [place] [address] Pharmacist Pharmacy 09/06/21 [facility] 12/17/17 [facility] Wound Center 07/23/18 [place] [facility] Patients 06/20/20 Assembler Mechanical Ordnance Relationship Specialty Start Date End Date Panfilo Oreilly MD [address] [place] [address] PCP - General Family Practice 02/12/17 Shreya Mccray MD Endocrinology 07/23/18 [place] Dumont [address] [place] [address] Specialty Central Communications Specialist Pulmonary Disease 12/23/18 Brandee Cotter (Auto Adjudication Specialist) [address] [place] [address] Consulting Endocrinology 11/09/19 [place] Dumont [address] [place] [address] Consulting Pulmonary Disease 11/12/19 Robert Sanchez, [facility] [address] [facility] [place] [address] Pharmacist Pharmacy 09/06/21 [facility] 12/17/17 [facility] Wound Center 07/23/18 [facility] Patients 06/20/20 Assembler Mechanical Ordnance Relationship Specialty Start Date End Date Panfilo Oreilly MD [address] [place] [address] PCP - General Family Medicine 02/12/17 Shreya Mccray MD Endocrinology 07/23/18 [place] Dumont [address] [place] [address] Specialty Central Communications Specialist Pulmonary Disease 12/23/18 Brandee Cotter (Auto Adjudication Specialist) [facility] [address], [place] [id number] Consulting Endocrinology 11/09/19 [place] Dumont [address] [place] [address] Consulting Pulmonary Disease 11/12/19 Robert Sanchez, [facility] [address] [facility] [place] [address] Pharmacist Pharmacy 09/06/21 [facility] 12/17/17 [facility] Wound Center 07/23/18 [place] Patients 06/20/20 Assembler Mechanical Ordnance Relationship Specialty Start Date End Date Panfilo Oreilly MD [address] [place], [place] [address] PCP - General Family Medicine 02/12/17 Shreya Mccray MD Endocrinology 07/23/18 [place] Dumont [address] [place] [address] Specialty Central Communications Specialist Pulmonary Disease 12/23/18 Brandee Cotter (Auto Adjudication Specialist) [address] [place] [address] Consulting Endocrinology 11/09/19 [place] Dumont [address] [place] [address] Consulting Pulmonary Disease 11/12/19 [facility] [address] [place] [address] Pharmacist Pharmacy 09/06/21 [facility] 12/17/17 [facility] Wound Center 07/23/18 [facility] Patients 06/20/20 Assembler Mechanical Ordnance Relationship Specialty Start Date End Date Panfilo Oreilly MD [address] [place], [place] [id number] PCP - General Family Medicine 02/12/17 Shreya Mccray MD Endocrinology 07/23/18 [place] Dumont [address] [place] [address] Specialty Central Communications Specialist Pulmonary Disease 12/23/18 Brandee Cotter (Auto Adjudication Specialist) [address] [place] [address] Consulting Endocrinology 11/09/19 [place] Dumont [address] [address] Consulting Pulmonary Disease 11/12/19 [facility]Robert [facility] [address] [facility] [place] [address] Pharmacist Pharmacy 09/06/21 [facility] 12/17/17 [facility] Wound Center 07/23/18 [place] [facility] Patients 06/20/20 Assembler Mechanical Ordnance Relationship Specialty Start Date End Date Panfilo Oreilly MD [address] [facility] [address] PCP - General Family Medicine 02/12/17 Shreya Mccray MD Endocrinology 07/23/18 [place] Dumont [address] [place] [address] Specialty Central Communications Specialist Pulmonary Disease 12/23/18 Brandee Cotter (Auto Adjudication Specialist) [address] [place] [address] Consulting Endocrinology 11/09/19 [place] Dumont [address] [place] [address] Consulting Pulmonary Disease 11/12/19 [facility] [address] [facility] [address] Pharmacist Pharmacy 09/06/21 [facility] 12/17/17 [facility] Wound Center 07/23/18 [place] [facility] Patients 06/20/20 Assembler Mechanical Ordnance Relationship Specialty Start Date End Date Panfilo Oreilly MD [address] [place] [address] PCP - General Family Medicine 02/12/17 Shreya Mccray MD Endocrinology 07/23/18 [place] Dumont [address] [place] [address] Specialty Central Communications Specialist Pulmonary Disease 12/23/18 Brandee Cotter (Auto Adjudication Specialist) [address] [place] [address] Consulting Endocrinology 11/09/19 [place] Dumont [address] [place] [address] Consulting Pulmonary Disease 11/12/19 Robert Sanchez [facility] [address] [facility] [address] Pharmacist Pharmacy 09/06/21 [facility] 12/17/17 [facility] Wound Center 07/23/18 [place] Patients 06/20/20 Assembler Mechanical Ordnance Relationship Specialty Start Date End Date Panfilo Oreilly MD [address] [place] [address] PCP - General Family Medicine 02/12/17 Shreya Mccray MD [address] [place] [address] Endocrinology 07/23/18 [place] Dumont [address] [place] [address] Specialty Central Communications Specialist Pulmonary Disease 12/23/18 Brandee Cotter (Auto Adjudication Specialist) [address] [place] [address] Consulting Endocrinology 11/09/19 [place] Dumont [address] [place] [address] Consulting Pulmonary Disease 11/12/19 [facility] [address] [place] [address] Pharmacist Pharmacy 09/06/21 [facility] 12/17/17 [facility] Wound Center 07/23/18 [facility] Patients 06/20/20 Assembler Mechanical Ordnance Relationship Specialty Start Date End Date Panfilo Oreilly MD [address] [place] [address] PCP - General Family Medicine 02/12/17 Shreya Mccray MD [address] [place] [address] Endocrinology 07/23/18 [place] Dumont [address] [place] [address] Specialty Central Communications Specialist Pulmonary Disease 12/23/18 Brandee Cotter (Auto Adjudication Specialist) [address] [place] [address] Consulting Endocrinology 11/09/19 [place] Dumont [address] [place] [address] Consulting Pulmonary Disease 11/12/19 [facility] [address] [facility] [place] [address] Pharmacist Pharmacy 09/06/21 [facility] 12/17/17 [facility] Wound Center 07/23/18 [place] [facility] Patients 06/20/20 Assembler Mechanical Ordnance Relationship Specialty Start Date End Date Panfilo Oreilly MD [address] [place] [address] PCP - General Family Medicine 02/12/17 Shreya Mccray MD [address] [facility] [place] [address] Endocrinology 07/23/18 [place] Dumont [address] [place] [address] Specialty Central Communications Specialist Pulmonary Disease 12/23/18 Brandee Cotter (Auto Adjudication Specialist) [address], [place] [id number] Consulting Endocrinology 11/09/19 [place] Dumont [address] [place] [address] Consulting Pulmonary Disease 11/12/19 Robert Sanchez [facility] [address] [facility] [place] [address] Pharmacist Pharmacy 09/06/21 [facility] 12/17/17 [facility] Wound Center 07/23/18 [place] [facility] Patients 06/20/20 Assembler Mechanical Ordnance Relationship Specialty Start Date End Date Panfilo Oreilly MD [address] [facility] [place] [address] PCP - General Family Medicine 02/12/17 Shreya Mccray MD [address] [facility] [place] [address] Endocrinology 07/23/18 [place] Dumont [address] [place] [address] Specialty Central Communications Specialist Pulmonary Disease 12/23/18 Brandee Cotter (Auto Adjudication Specialist) [address] [place] [address] Consulting Endocrinology 11/09/19 [place] Dumont [address] [place] [address] Consulting Pulmonary Disease 11/12/19 [facility] [address] [facility] [place] [address] Pharmacist Pharmacy 09/06/21 [facility] 12/17/17 [facility] Wound Center 07/23/18 [place] Patients 06/20/20 Assembler Mechanical Ordnance Relationship Specialty Start Date End Date Panfilo Oreilly MD [address] [place] [address] PCP - General Family Medicine 02/12/17 Shreya Mccray MD [address] [place] [address] Endocrinology 07/23/18 [place] Dumont [address] [place] [address] Specialty Central Communications Specialist Pulmonary Disease 12/23/18 Brandee Cotter (Auto Adjudication Specialist) [address] [place] [address] Consulting Endocrinology 11/09/19 [place] Dumont [address] [place] [address] Consulting Pulmonary Disease 11/12/19 [facility] [address] [facility] [address] Pharmacist Pharmacy 09/06/21 [facility] 12/17/17 [facility] Wound Center 07/23/18 [place] [facility] Patients 06/20/20 Assembler Mechanical Ordnance Relationship Specialty Start Date End Date Panfilo Oreilly MD [address] [place] [address] PCP - General Family Medicine 02/12/17 Shreya Mccray MD [address] [place] [address] Endocrinology 07/23/18 [place] Dumont [address] [place] [address] Specialty Central Communications Specialist Pulmonary Disease 12/23/18 Brandee Cotter (Auto Adjudication Specialist) [address] [place] [address] Consulting Endocrinology 11/09/19 [place] Dumont [address] [place] [address] Consulting Pulmonary Disease 11/12/19 [facility] [address] [facility] [address] Pharmacist Pharmacy 09/06/21 [facility] 12/17/17 [facility] Wound Center 07/23/18 [place] [facility] Patients 06/20/20 Assembler Mechanical Ordnance Relationship Specialty Start Date End Date Panfilo Oreilly MD [address] [place] [address] PCP - General Family Medicine 02/12/17 Shreya Mccray MD [address] [place] [address] Endocrinology 07/23/18 [place] Dumont [address] [place] [address] Specialty Central Communications Specialist Pulmonary Disease 12/23/18 Brandee Cotter (Auto Adjudication Specialist) [address] [place] [address] Consulting Endocrinology 11/09/19 [place] Dumont [address] [place] [address] Consulting Pulmonary Disease 11/12/19 Robert Sanchez [facility] [address] [place] [address] Pharmacist Pharmacy 09/06/21 [facility] 12/17/17 [facility] Wound Center 07/23/18 [place] [facility] Patients 06/20/20 Assembler Mechanical Ordnance Relationship Specialty Start Date End Date Panfilo Oreilly MD [address] [place] [address] PCP - General Family Medicine 02/12/17 Shreya Mccray MD [address] [place] [address] Endocrinology 07/23/18 Berlni Dumont [address] [place] [address] Specialty Central Communications Specialist Pulmonary Disease 12/23/18 Brandee Cotter (Auto Adjudication Specialist) [address] [place] [address] Consulting Endocrinology 11/09/19 [place] Dumont [address] [place] [address] Consulting Pulmonary Disease 11/12/19 Robert Sanchez, Formerly [facility] [address] [place] [address] Pharmacist Pharmacy 09/06/21 [facility] 12/17/17 [facility] Wound Center 07/23/18 [place] [facility] Patients 06/20/20 Team Status: Active Member Role Status Dates Dr. Tino Oreilly MD Family Provider Active Dr. Tino Oreilly MD Primary Care Provider Acti ve Team Status: Active Member Role Status Dates Dr. Tino Oreilly MD Primary Care Provider Acti ve Dr. Rupert Pitts , Emergency Provider Active Dr. Mihai Chu MD [...] Care Provider Acti ve Dr. Rupert Pitts , Attending Provider, Emergency Provider Active Team Status: [...] MD Attending Provider, Emergency Provi mame Active Assembler Mechanical Ordnance Relationship Specialty Start Date End Date Panfilo Oreilly MD [address] [place] [address] PCP - General Family Medicine 02/12/17 Shreya Mccray MD [address] [place] [address] Endocrinology 07/23/18 [place] Dumont [address] [place] [address] Specialty Central Communications Specialist Pulmonary Disease 12/23/18 Brandee Cotter (Auto Adjudication Specialist) [address] [place] [address] Consulting Endocrinology 11/09/19 [place] Dumont [address] [place] [address] Consulting Pulmonary Disease 11/12/19 [facility] [address] [facility] [place] [address] Pharmacist Pharmacy 09/06/21 [facility] 12/17/17 [facility] Wound Center 07/23/18 [place] [facility] 06/20/20 Assembler Mechanical Ordnance Relationship Specialty Start Date End Date Panfilo Oreilly MD [address] [place] [address] PCP - General Family Medicine 02/12/17 Shreya Mccray MD [address] [place] [address] Endocrinology 07/23/18 Berlin Dumont [address] [place] [address] Specialty Central Communications Specialist Pulmonary Disease 12/23/18 Brandee Cotter (Auto Adjudication Specialist) [facility] [address] [place], [place] [id number] Consulting Endocrinology 11/09/19 Berlin Dumont [address] [place] [address] Consulting Pulmonary Disease 11/12/19 [facility] [address] [facility] [place] [address] Pharmacist Pharmacy 09/06/21 [facility] 12/17/17 [facility] Wound Center 07/23/18 [place] 06/20/20 Assembler Mechanical Ordnance Relationship Specialty Start Date End Date Panfilo Oreilly MD [address] [place] [address] PCP - General Family Medicine 02/12/17 Shreya Mccray MD [address] [facility] [place] [address] Endocrinology 07/23/18 Berlin Dumont [address] [place] [address] Specialty Central Communications Specialist Pulmonary Disease 12/23/18 Brandee Cotter (Auto Adjudication Specialist) [address] [place] [address] Consulting Endocrinology 11/09/19 Berlin Dumont [address] [place] [address] Consulting Pulmonary Disease 11/12/19 Robert Sanchez [facility] [address] [place] [address] Pharmacist Pharmacy 09/06/21 [facility] 12/17/17 [facility] Wound Center 07/23/18 [place] [facility] 06/20/20 Assembler Mechanical Ordnance Relationship Specialty Start Date End Date Panfilo Oreilly MD [address] [place] [address] PCP - General Family Medicine 02/12/17 Shreya Mccray MD [address] [place] [address] Endocrinology 07/23/18 Berlin Dumont [address] [place] [address] Specialty Central Communications Specialist Pulmonary Disease 12/23/18 Brandee Cotter (Auto Adjudication Specialist) [address] [place] [address] Consulting Endocrinology 11/09/19 Berlin Dumont [address] [place] [address] Consulting Pulmonary Disease 11/12/19 [facility] [address] [place] [address] Pharmacist Pharmacy 09/06/21 [facility] 12/17/17 [facility] Wound Center 07/23/18 [place] [facility] 06/20/20 Assembler Mechanical Ordnance Relationship Specialty Start Date End Date Panfilo Oreilly MD [address] [place] [address] PCP - General Family Medicine 02/12/17 Shreya Mccray MD [address] [place] [address] Endocrinology 07/23/18 Berlin Dumont [address] [place] [address] Specialty Central Communications Specialist Pulmonary Disease 12/23/18 Brandee Cotter (Auto Adjudication Specialist) [address] [place] [address] Consulting Endocrinology 11/09/19 Berlin Dumont [address] [place] [address] Consulting Pulmonary Disease 11/12/19 Robert Sanchez, [facility] [address] [place] [address] Pharmacist Pharmacy 09/06/21 [facility] [address] [place] [address] Transitional Care Pharmacist Pharmacy 01/02/23 02/01/23 Mimi Crowley, pizza hut team member [employer] 01/01/23 01/29/23 [facility] 12/17/17 [facility] Wound Center 07/23/18 [place] [facility] 06/20/20 Assembler Mechanical Ordnance Relationship Specialty Start Date End Date Panfilo Oreilly MD [address] [place], [place] 77[address] PCP - General Family Medicine 02/12/17 Shreya Mccray MD [address] [place] [address] Endocrinology 07/23/18 Berlin Dumont [address] [facility] [address] Specialty Central Communications Specialist Pulmonary Disease 12/23/18 Brandee Cotter (Auto Adjudication Specialist) [address] [place], [place] [id number] Consulting Endocrinology 11/09/19 Berlin Dumont [address] [facility] [address] Consulting Pulmonary Disease 11/12/19 Robert Sanchez, [facility] [address] [place] [address] Pharmacist Pharmacy 09/06/21 Brissa Kilpatrick, [facility] [address] [place], [place] [address] Transitional Care Pharmacist Pharmacy 01/02/23 02/01/23 Mimi Crowley, pizza hut team member [employer] 01/01/23 01/29/23 [facility] 12/17/17 [facility] Wound Center 07/23/18 [place] [facility] 06/20/20 Assembler Mechanical Ordnance Relationship Specialty Start Date End Date Panfilo Oreilly MD [address] [place], [place] [id number] PCP - General Family Medicine 02/12/17 Shreya Mccray MD [address] [place] [address] Endocrinology 07/23/18 Berlin Dumont [address] [place] [address] Specialty Central Communications Specialist Pulmonary Disease 12/23/18 Brandee Cotter ([facility]) [address] [place], [place] [id number] Consulting Endocrinology 11/09/19 Berlin Dumont [address] [place] [address] [place] [address] Consulting Pulmonary Disease 11/12/19 Robert Sanchez, [facility] [address] [place] [address] Pharmacist Pharmacy 09/06/21 Brissa Kilpatrick, [facility] [address] [place] [address] Transitional Care Pharmacist Pharmacy 01/02/23 02/01/23 Mimi Crowley, pizza hut team member [employer] 01/01/23 01/29/23 [facility] 12/17/17 [facility] Wound Center 07/23/18 [place] [facility] 06/20/20 Assembler Mechanical Ordnance Relationship Specialty Start Date End Date Panfilo Oreilly MD [address] [place] [address] PCP - General Family Medicine 02/12/17 Shreya Mccray MD [address] [place] [address] Endocrinology 07/23/18 Berlin Dumont [address] [place] [address] Specialty Central Communications Specialist Pulmonary Disease 12/23/18 Brandee Cotter (Auto Adjudication Specialist) [address] [place], [place] [id number] Consulting Endocrinology 11/09/19 Berlin Dumont [address] [place] [address] Consulting Pulmonary Disease 11/12/19 [facility] [address] [place] [address] Pharmacist Pharmacy 09/06/21 Brissa Kilpatrick, [facility] [address] [place] [address] Transitional Care Pharmacist Pharmacy 01/02/23 02/01/23 Mimi Crowley, pizza hut team member [employer] 01/01/23 01/29/23 [facility] 12/17/17 [facility] Wound Center 07/23/18 [place] 06/20/20 Team Status: Inactive Member Role Status Dates Dr. Tino Oreilly MD Primary Care Provider Acti ve Dr. Eulogio Jiang DO Emergency Provider Active Assembler Mechanical Ordnance Relationship Specialty Start Date End Date Panfilo Oreilly MD [address] [place], [place] [id number] PCP - General Family Medicine 02/12/17 Shreya Mccray MD [address] [facility] [address] Endocrinology 07/23/18 Berlin Dumont [address] [place] [address] Specialty Central Communications Specialist Pulmonary Disease 12/23/18 Brandee Cotter (Auto Adjudication Specialist) [address] [place] [address] Consulting Endocrinology 11/09/19 Berlin Dumont [address] [place] [address] Consulting Pulmonary Disease 11/12/19 Robert Sanchez, [facility] [address] [place] [address] Pharmacist Pharmacy 09/06/21 Brissa Kilpatrick, [facility] [address] [place] [address] Transitional Care Pharmacist Pharmacy 01/02/23 02/01/23 Mimi Crowley, pizza hut team member [employer] 01/01/23 01/29/23 [facility] 12/17/17 [facility] Wound Center 07/23/18 [place] [facility] 06/20/20 Assembler Mechanical Ordnance Relationship Specialty Start Date End Date Panfilo Oreilly MD [address] [place], [place] [id number] PCP - General Family Medicine 02/12/17 Shreya Mccray MD [address] [place] [address] Endocrinology 07/23/18 Berlin Dumont [address] [place] [address] Specialty Central Communications Specialist Pulmonary Disease 12/23/18 Brandee Cotter (Auto Adjudication Specialist) [address] [place], [place] [id number] Consulting Endocrinology 11/09/19 Berlin Dumont [address] [place] [address] Consulting Pulmonary Disease 11/12/19 Robert Sanchez, [facility] [address] [place] [address] Pharmacist Pharmacy 09/06/21 Brissa Kilpatrick, [facility] [address] [place] [address] Transitional Care Pharmacist Pharmacy 01/02/23 02/01/23 [facility] 12/17/17 [facility] Wound Center 07/23/18 [place] [facility] 06/20/20 Assembler Mechanical Ordnance Relationship Specialty Start Date End Date Paniflo Oreilly MD [address] [place] [address] PCP - General Family Medicine 02/12/17 Shreya Mccray MD [address] [place] [address] Endocrinology 07/23/18 [place] Dumont [address] [place] [address] Specialty Central Communications Specialist Pulmonary Disease 12/23/18 Brandee Cotter (Auto Adjudication Specialist) [address] [place], [place] [id number] Consulting Endocrinology 11/09/19 Berlin Dumont [address] [place] [address] Consulting Pulmonary Disease 11/12/19 Robert Sanchez, [facility] [address] [facility] [place] [address] Pharmacist Pharmacy 09/06/21 Brissa Kilpatrick, [facility] [address] [place], [place] [address] Transitional Care Pharmacist Pharmacy 01/02/23 02/01/23 [facility] 12/17/17 [facility] Wound Center 07/23/18 [facility] Patients 06/20/20 Assembler Mechanical Ordnance Relationship Specialty Start Date End Date Panfilo Oreilly MD [address] [place] [address] PCP - General Family Medicine 02/12/17 Shreya Mccray MD [address] [place] [address] Endocrinology 07/23/18 Berlin Dumont [address] [place] [address] Specialty Central Communications Specialist Pulmonary Disease 12/23/18 Brandee Cotter (Auto Adjudication Specialist) [address] [place] [address] Consulting Endocrinology 11/09/19 Berlin Dumont [address] [place] [address] Consulting Pulmonary Disease 11/12/19 Robert Sanchez, [facility] [address] [place] [address] Pharmacist Pharmacy 09/06/21 Brissa Kilpatrick, [facility] [address] [place] [address] Transitional Care Pharmacist Pharmacy 01/02/23 02/01/23 Mimi Crowley, pizza hut team member [employer] 01/01/23 01/13/23 [facility] 12/17/17 [facility] Wound Center 07/23/18 [place] [facility] 06/20/20 Assembler Mechanical Ordnance Relationship Specialty Start Date End Date Panfilo Oreilly MD [address] [place], [place] [id number] PCP - General Family Medicine 02/12/17 Shreya Mccray MD [address] [place], [place] 517[address] Endocrinology 07/23/18 Berlin Dumont [address] [place] [address] Specialty Central Communications Specialist Pulmonary Disease 12/23/18 Brandee Cotter (Auto Adjudication Specialist) [address] [place] [address] Consulting Endocrinology 11/09/19 Berlin Dumont [address] [place] [address] Consulting Pulmonary Disease 11/12/19 Robert Sanchez, [facility] [address] [place] [address] Pharmacist Pharmacy 09/06/21 Brissa Kilpatrick [facility] [address] [place], [place] [address] Transitional Care Pharmacist Pharmacy 01/02/23 02/01/23 Raquel Payne, pizza hut team member [employer] 01/17/23 02/13/23 [facility] 12/17/17 [facility] Wound Center 07/23/18 [place] [facility] 06/20/20 Assembler Mechanical Ordnance Relationship Specialty Start Date End Date Panfilo Oreilly MD [address] [place], [place] [address] PCP - General Family Medicine 02/12/17 Shreya Mccray MD [address] [place], [place] 140141 Endocrinology 07/23/18 [place] Dumont [address] [place] [address] Specialty Central Communications Specialist Pulmonary Disease 12/23/18 Brandee Cotter (Auto Adjudication Specialist) [address] [place] [address] Consulting Endocrinology 11/09/19 [place] Dumont [address] [place] [address] Consulting Pulmonary Disease 11/12/19 Robert Sanchez, [facility] [address] [place] [address] Pharmacist Pharmacy 09/06/21 Brissa Kilpatrick, [facility] [address] [place] [address] Transitional Care Pharmacist Pharmacy 01/02/23 02/01/23 Raquel Payne, pizza hut team member [employer] 01/17/23 02/13/23 [facility] 12/17/17 [facility] Wound Center 07/23/18 [place] 06/20/20 Assembler Mechanical Ordnance Relationship Specialty Start Date End Date Panfilo Oreilly MD [address] [place] [address] PCP - General Family Medicine 02/12/17 Shreya Mccray MD [address] [place] [address] Endocrinology 07/23/18 [place] Dumont [address] [place] [address] Specialty Central Communications Specialist Pulmonary Disease 12/23/18 Brandee Cotter ([facility]) [address] [place], [place] [id number] Consulting Endocrinology 11/09/19 [place] Dumont [address] [facility] [place] [address] Consulting Pulmonary Disease 11/12/19 Robert Sanchez, [facility] [address] [place] [address] Pharmacist Pharmacy 09/06/21 Brissa Kilpatrick, [facility] [address] [place] [address] Transitional Care Pharmacist Pharmacy 01/02/23 02/01/23 Raquel Payne, pizza hut team member [employer] 01/17/23 02/13/23 [facility] 12/17/17 [facility] Wound Center 07/23/18 [place] [facility] 06/20/20 Assembler Mechanical Ordnance Relationship Specialty Start Date End Date Panfilo Oreilly MD [address] [place], [place] 166731 PCP - General Family Medicine 02/12/17 Shreya Mccray MD [address] [facility] [address] Endocrinology 07/23/18 Berlin Dumont [address] [place] [address] Specialty Central Communications Specialist Pulmonary Disease 12/23/18 Brandee Cotter (Auto Adjudication Specialist) [address] [place] [address] Consulting Endocrinology 11/09/19 Berlin Dumont [address] [place] [address] Consulting Pulmonary Disease 11/12/19 Robert Sanchez, [facility] [address] [place] [address] Pharmacist Pharmacy 09/06/21 Brissa Kilpatrick, [facility] [address] [place] [address] Transitional Care Pharmacist Pharmacy 01/02/23 02/01/23 Raquel Payne, pizza hut team member [employer] 01/17/23 02/13/23 [facility] 12/17/17 [facility] Wound Center 07/23/18 [place] [facility] 06/20/20 Assembler Mechanical Ordnance Relationship Specialty Start Date End Date Panfilo Oreilly MD [address] [place] [address] PCP - General Family Medicine 02/12/17 Shreya Mccray MD [address] [place] [address] Endocrinology 07/23/18 Berlin Dumont [address] [place] [address] Specialty Central Communications Specialist Pulmonary Disease 12/23/18 Brandee Cotter (Auto Adjudication Specialist) [address] [place], [place] [id number] Consulting Endocrinology 11/09/19 Berlin Dumont [address] [place] [address] Consulting Pulmonary Disease 11/12/19 Robert Sanchez, [facility] [address] [place] [address] Pharmacist Pharmacy 09/06/21 Brissa Kilpatrick, [facility] [address] [place], [place] 238[address] Transitional Care Pharmacist Pharmacy 01/02/23 02/01/23 Raquel Payne, pizza hut team member [employer] 01/17/23 02/13/23 [facility] 12/17/17 [facility] Wound Center 07/23/18 [place] Patients 06/20/20 Assembler Mechanical Ordnance Relationship Specialty Start Date End Date Panfilo Oreilly MD [address] [place] [address] PCP - General Family Medicine 02/12/17 Shreya Mccray MD [address] [place] [address] Endocrinology 07/23/18 Berlin Dumont [address] [place] [address] Specialty Central Communications Specialist Pulmonary Disease 12/23/18 Brandee Cotter (Auto Adjudication Specialist) [address] [place], [place] [id number] Consulting Endocrinology 11/09/19 Berlin Dumont [address] [place] [address] Consulting Pulmonary Disease 11/12/19 [facility] [address] [place] [address] Pharmacist Pharmacy 09/06/21 Raquel Payne, pizza hut team member [employer] 01/17/23 02/13/23 [facility] 12/17/17 [facility] Wound Center 07/23/18 [facility] Patients 06/20/20 Assembler Mechanical Ordnance Relationship Specialty Start Date End Date Panfilo Oreilly MD [address] [place] [address] PCP - General Family Medicine 02/12/17 Shreya Mccray MD [address] [place] [address] Endocrinology 07/23/18 Berlin Dumont [address] [place] [address] Specialty Central Communications Specialist Pulmonary Disease 12/23/18 Brandee Cotter (Auto Adjudication Specialist) [address] [place] [address] Consulting Endocrinology 11/09/19 Berlin Dumont [address] [place] [address] Consulting Pulmonary Disease 11/12/19 [facility] [address] [facility] [place] [address] Pharmacist Pharmacy 09/06/21 Raquel Payne, pizza hut team member [employer] 2/17/23 3/16/23 [facility] 12/17/17 [facility] Wound Center 07/23/18 [place] 06/20/20 Team Status: Inactive Member Role Status Dates Dr. Tino Oreilly MD Primary Care Provider Acti ve Dr. Eulogio Jiang DO Attending Provider, Emergency Pr ovider Active Team Status: Inactive Member Role Status Dates Dr. Tino Oreilly MD Primary Care Provider Acti ve Dr. Deejay Ornelas MD Emergency Provider Active Assembler Mechanical Ordnance Relationship Specialty Start Date End Date Pafnilo Oreilly MD [address] [place], [place] [address]871 PCP - General Family Medicine 02/12/17 Shreya Mccray MD [address] [place] [address] Endocrinology 07/23/18 Berlin Dumont [address] [place] [address] Specialty Central Communications Specialist Pulmonary Disease 12/23/18 Brandee Cotter (Auto Adjudication Specialist) [address] [place] [address] Consulting Endocrinology 11/09/19 Berlin Dumont [address] [place] [address] Consulting Pulmonary Disease 11/12/19 Robert Sanchez, [facility] [address] [place] [address] Pharmacist Pharmacy 09/06/21 Raquel Payne RN Primary Care [employer] 01/17/23 02/13/23 Dianne Garcia APRN.SALES ORDER ADMINISTRATOR [address] [place], [place] [id number] Referring General Surgery 02/20/23 [facility] 12/17/17 [facility] Wound Center 07/23/18 [place] [facility] 06/20/20 Assembler Mechanical Ordnance Relationship Specialty Start Date End Date Panfilo Oreilly MD [address] [place] [address] PCP - General Family Medicine 02/12/17 Shreya Mccray MD [address] [place] [address] Endocrinology 07/23/18 Berlin Dumont [address] [place] [address] Specialty Central Communications Specialist Pulmonary Disease 12/23/18 Brandee Cotter (Auto Adjudication Specialist) [address] [place] [address] Consulting Endocrinology 11/09/19 Berlin Dumont [address] [facility] [place] [address] Consulting Pulmonary Disease 11/12/19 Robert Sanchez, [facility] [address] [place] [address] Pharmacist Pharmacy 09/06/21 Dianne Garcia, ROSELYN.SALES ORDER ADMINISTRATOR [address] [place] [address] Referring General Surgery 02/20/23 Annie Borges, [facility] [address] [place] [address] Transitional Care Pharmacist Pharmacy 02/21/23 03/22/23 Carlos Cline, RN [address] [place] [address] Primary Care [employer] Internal Medicine 02/21/23 03/23/23 Panfilo Oreilly MD [address] [place], [place] 401701 Home Care Provider Family Medicine 02/21/23 [facility] 12/17/17 [facility] Wound Center 07/23/18 [place] [facility] 06/20/20 Assembler Mechanical Ordnance Relationship Specialty Start Date End Date Panfilo Oreilly MD [address] [place] [address] PCP - General Family Medicine 02/12/17 Shreya Mccray MD [address] [place] [address] Endocrinology 07/23/18 Berlin Dumont [address] [place] [address] Specialty Central Communications Specialist Pulmonary Disease 12/23/18 Brandee Cotter (Auto Adjudication Specialist) [address] [place], [place] [id number] Consulting Endocrinology 11/09/19 [place] Dumont [address] [place] [address] Consulting Pulmonary Disease 11/12/19 Robert Sanchez [facility] [address] [place] [address] Pharmacist Pharmacy 09/06/21 [facility] 12/17/17 [facility] Wound Center 07/23/18 [place] [facility] 06/20/20 Assembler Mechanical Ordnance Relationship Specialty Start Date End Date Panfilo Oreilly MD [address] [place] [address] PCP - General Family Medicine 02/12/17 Shreya Mccray MD [address] [place] [address] Endocrinology 07/23/18 Berlin Dumont [address] [place] [address] Specialty Central Communications Specialist Pulmonary Disease 12/23/18 Brandee Cotter (Auto Adjudication Specialist) [address] [place], [place] [id number] Consulting Endocrinology 11/09/19 Berlin Dumont [address] [facility] [place] [address] Consulting Pulmonary Disease 11/12/19 Robert Sanchez, [facility] [address] [place] [address] Pharmacist Pharmacy 09/06/21 Dianne Garcia, SHOOK MACHINE OPERATOR.SALES ORDER ADMINISTRATOR [address] [place] [address] Referring General Surgery 02/20/23 [facility] [address] [place], [place] 1565195 Transitional Care Pharmacist Pharmacy 02/21/23 03/22/23 Carlos Cline, LORENZO [address] [place] [address] Primary Care [employer] Internal Medicine 02/21/23 03/23/23 Panfilo Oreilly MD [address] [place] [address] Home Care Provider Family Medicine 02/21/23 Bharat Gardner, LORENZO [address] [place], [place] [id number] Argon Tester Post Acute Care 02/21/23 [facility] 12/17/17 [facility] Wound Center 07/23/18 [place] [facility] 06/20/20 Assembler Mechanical Ordnance Relationship Specialty Start Date End Date Panfilo Oreilly MD [address] [place] [address] PCP - General Family Medicine 02/12/17 Shreya Mccray MD [address] [place] [address] Endocrinology 07/23/18 Berlin Dumont [address] [place] [address] Specialty Central Communications Specialist Pulmonary Disease 12/23/18 Brandee Cotter (Auto Adjudication Specialist) [address] [place], [place] [id number] Consulting Endocrinology 11/09/19 Berlin Dumont [address] [facility] [place] [address] Consulting Pulmonary Disease 11/12/19 [facility] [address] [place] [address] Pharmacist Pharmacy 09/06/21 Dianne Garcia, ROSELYN.SALES ORDER ADMINISTRATOR [address] [place] [address] Referring General Surgery 02/20/23 Annie Borges, [facility] [address] [place], [place] [id number] Transitional Care Pharmacist Pharmacy 02/21/23 03/22/23 Carlos Cline, RN [address] [place], [place] [id number] Primary Care [employer] Internal Medicine 02/21/23 03/23/23 Panfilo Oreilly MD [address] [place], [place] 507841 Home Care Provider Family Medicine 02/21/23 Bharat Gardner, RN [address] [place] [address] Argon Tester Post Acute Care 02/21/23 [facility] 12/17/17 [facility] Wound Center 07/23/18 [place] 06/20/20 Assembler Mechanical Ordnance Relationship Specialty Start Date End Date Panfilo Oreilly MD [address] [place], [place] [id number] PCP - General Family Medicine 02/12/17 Shreya Mccray MD [address] [place] [address] Endocrinology 07/23/18 Berlin Dumont [address] [place] [address] Specialty Central Communications Specialist Pulmonary Disease 12/23/18 Brandee Cotter (Auto Adjudication Specialist) [address] [place], [place] [id number] Consulting Endocrinology 11/09/19 Berlin Dumont [address] [place] [address] Consulting Pulmonary Disease 11/12/19 Robert Sanchez [facility] [address] [place] [address] Pharmacist Pharmacy 09/06/21 Dianne Garcia, ROSELYN.SALES ORDER ADMINISTRATOR 1 [facility] [address] [place], [place] [id number] [phone] Referring General Surgery 02/20/23 Annie Borges, Formerly [facility] [address] [place], [place] [id number] Transitional Care Pharmacist Pharmacy 02/21/23 03/22/23 Carlos Cline, RN [address] [place], [place] [id number] Primary Care [employer] Internal Medicine 02/21/23 03/23/23 Panfilo Oreilly MD [address] [place], [place] [id number] Home Care Provider Family Medicine 02/21/23 Bharat Gardner, RN [address] [place] [address] Argon Tester Post Acute Care 02/21/23 [facility] 12/17/17 [facility] Wound Center 07/23/18 [facility] Patients 06/20/20 Assembler Mechanical Ordnance Relationship Specialty Start Date End Date Panfilo Oreilly MD [address] [place], [place] [id number] PCP - General Family Medicine 02/12/17 Shreya Mccray MD [address] [place] [address] Endocrinology 07/23/18 Berlin Dumont [address] [place] [address] Specialty Central Communications Specialist Pulmonary Disease 12/23/18 Brandee Cotter (Auto Adjudication Specialist) [address], [place] [id number] Consulting Endocrinology 11/09/19 Berlin Dumont [address] [place] [address] Consulting Pulmonary Disease 11/12/19 Robert Sanchez, Formerly [facility] [address] [place], [place] [id number] Pharmacist Pharmacy 09/06/21 Dianne Garcia APRN.SALES ORDER ADMINISTRATOR [address] [facility] [place], [place] [id number] Referring General Surgery 02/20/23 Annie Borges, Formerly [facility] [address] [place] [address] Transitional Care Pharmacist Pharmacy 02/21/23 03/22/23 Carlos Cline, RN [address] [place] [address] Primary Care [employer] Internal Medicine 02/21/23 03/23/23 Panfilo Oreilly MD [address] [place], [place] [id number] Home Care Provider Family Medicine 02/21/23 Bharat Gardner, RN [address] [place] [address] Argon Tester Post Acute Care 02/21/23 [employer] 12/17/17 [facility] Wound Center 07/23/18 [facility] Patients 06/20/20 Assembler Mechanical Ordnance Relationship Specialty Start Date End Date Panfilo Oreilly MD [address] [place], [place] [id number] PCP - General Family Medicine 02/12/17 Shreya Mccray MD [address] [place], [place] [id number] Endocrinology 07/23/18 Berlin Dumont [address] [place], [place] [id number] Specialty Central Communications Specialist Pulmonary Disease 12/23/18 Brandee Cotter (Auto Adjudication Specialist) [address], [place] [id number] Consulting Endocrinology 11/09/19 Berlin Dumont [address] [place] [address] Consulting Pulmonary Disease 11/12/19 Robert Sanchez, Formerly [facility] [address] [place], [place] [id number] Pharmacist Pharmacy 09/06/21 Dianne Garcia APRN.SALES ORDER ADMINISTRATOR [address] [place] [address] Referring General Surgery 02/20/23 [facility] [address] [place] [address] Transitional Care Pharmacist Pharmacy 02/21/23 03/22/23 Carlos Cline, RN [address] [place], [place] 2640995 Primary Care [employer] Internal Medicine 02/21/23 03/23/23 Panfilo Oreilly MD [address] [place], [place] [id number] Home Care Provider Family Medicine 02/21/23 Bharat Gardner, RN [address] [place] [address] Argon Tester Post Acute Care 02/21/23 [employer] 12/17/17 [facility] Wound Center 07/23/18 [place] [facility] Patients 06/20/20 Assembler Mechanical Ordnance Relationship Specialty Start Date End Date Panfilo Oreilly MD [address] [place], [place] [id number] PCP - General Family Medicine 02/12/17 Shreya Mccray MD [address] [place] [address] Endocrinology 07/23/18 Berlin Dumont [address] [place] [address] Specialty Central Communications Specialist Pulmonary Disease 12/23/18 Brandee Cotter (Auto Adjudication Specialist) [address], [place] [id number] Consulting Endocrinology 11/09/19 Berlin Dumont [address] [place] [address] Consulting Pulmonary Disease 11/12/19 Robert Sanchez, Former[facility] [address] [place] [address] Pharmacist Pharmacy 09/06/21 Dianne Garcia APRN.SALES ORDER ADMINISTRATOR [address] [place] [address] Referring General Surgery 02/20/23 [facility] [address] [place] [address] Transitional Care Pharmacist Pharmacy 02/21/23 03/22/23 Carlos Cline, LORENZO [address] [place] [address] Primary Care [employer] Internal Medicine 02/21/23 03/23/23 Panfilo Oreilly MD [address] [place] [address] Home Care Provider Family Medicine 02/21/23 Bharat Gardner, [place]EN[place] [address] [place], [place] [address] Argon Tester Post Acute Care 02/21/23 [employer] 12/17/17 [facility] Wound Center 07/23/18 [place] Patients 06/20/20 Assembler Mechanical Ordnance Relationship Specialty Start Date End Date Panfilo Oreilly MD [address] [place] [address] PCP - General Family Medicine 02/12/17 Shreya Mccray MD [address] [place] [address] Endocrinology 07/23/18 Berlin Dumont [address] [place] [address] Specialty Central Communications Specialist Pulmonary Disease 12/23/18 Brandee Cotter (Auto Adjudication Specialist) [address], [place] [id number] Consulting Endocrinology 11/09/19 Berlin Dumont [address] [place] [address] Consulting Pulmonary Disease 11/12/19 [facility] [address] [place] [address] Pharmacist Pharmacy 09/06/21 Dianne Garcia, ROSELYN.SALES ORDER ADMINISTRATOR [address] [place] [address] Referring General Surgery 02/20/23 Annie Borges, [facility] [address] [place] [address] Transitional Care Pharmacist Pharmacy 02/21/23 03/22/23 Carlos Cline, RN [address] [place] [address] Primary Care [employer] Internal Medicine 02/21/23 03/23/23 Panfilo Oreilly MD [address] [place], [place] 498381 Home Care Provider Family Medicine 02/21/23 Bharat Gardner, RN [address] [place], [place] 8490031 Argon Tester Post Acute Care 02/21/23 [employer] 12/17/17 [facility] Wound Center 07/23/18 [place] Patients 06/20/20 Assembler Mechanical Ordnance Relationship Specialty Start Date End Date Panfilo Oreilly MD [address] [place], [place] [id number] PCP - General Family Medicine 02/12/17 Shreya Mccray MD [address] [place], [place] 577501 Endocrinology 07/23/18 Berlin Dumont [address] [place] [address] Specialty Central Communications Specialist Pulmonary Disease 12/23/18 Brandee Cotter (Auto Adjudication Specialist) [address], [place] [id number] Consulting Endocrinology 11/09/19 Berlin Dumont [address] [place] [address] Consulting Pulmonary Disease 11/12/19 Robert Sanchez [facility] [address] [place] [address] Pharmacist Pharmacy 09/06/21 Dianne Garcia APRN.SALES ORDER ADMINISTRATOR [address] [facility] [place], [place] [phone] Referring General Surgery 02/20/23 Annie Borges, Former[facility] [address], [place] 8675695 Transitional Care Pharmacist Pharmacy 02/21/23 03/22/23 Carlos Cline, LORENZO [address] [place], [place] 7331895 Primary Care [employer] Internal Medicine 02/21/23 03/23/23 Panfilo Oreilly MD [address] [place], [place] 96419691 Home Care Provider Family Medicine 02/21/23 Bharat Gardner, LORENZO [address] [place] [address] Argon Tester Post Acute Care 02/21/23 [employer] 12/17/17 [facility] Wound Center 07/23/18 [facility] Patients 06/20/20 Assembler Mechanical Ordnance Relationship Specialty Start Date End Date Panfilo Oreilly MD [address] [place], [place] [id number] PCP - General Family Medicine 02/12/17 Shreya Mccray MD [address] [place] [address] Endocrinology 07/23/18 Berlin Dumont [address] [place] [address] Specialty Central Communications Specialist Pulmonary Disease 12/23/18 Brandee Cotter (Auto Adjudication Specialist) [address], [place] [id number] Consulting Endocrinology 11/09/19 Berlin Dumont [address] [place] [address] Consulting Pulmonary Disease 11/12/19 Robert Sanchez, [facility] [address] [place], [place] 947231 Pharmacist Pharmacy 09/06/21 Raquel Payne, pizza hut team member [employer] 01/17/23 02/13/23 Dianne Garcia, SHOOK MACHINE OPERATOR.SALES ORDER ADMINISTRATOR [address] [place] [address] Referring General Surgery 02/20/23 03/02/23 Annie Borges, [facility] [address], [place] [phone] Transitional Care Pharmacist Pharmacy 02/21/23 03/22/23 Carlos Cline, RN [address] [place], [place] 7186795 Primary Care [employer] Internal Medicine 02/21/23 03/23/23 Panfilo Oreilly MD [address] [place], [place] [phone] Home Care Provider Family Medicine 02/21/23 Bharat Gardner, RN [address] [place], [place] 1356431 Argon Tester Post Acute Care 02/21/23 Panfilo Oreilly MD [address] [place], [place] 05732691 Referring Family Medicine 03/03/23 [employer] 12/17/17 [facility] Wound Center 07/23/18 [place] Patients 06/20/20 Assembler Mechanical Ordnance Relationship Specialty Start Date End Date Panfilo Oreilly MD [address] [place] [address] PCP - General Family Medicine 02/12/17 Shreya Mccray MD [address] [place] [address] Endocrinology 07/23/18 Berlin Dumont [address] [place] [address] Specialty Central Communications Specialist Pulmonary Disease 12/23/18 Brandee Cotter (Auto Adjudication Specialist) [address] [place] [address] Consulting Endocrinology 11/09/19 Berlin Dumont [address] [place] [address] Consulting Pulmonary Disease 11/12/19 Robert Sanchez, [facility] [address] [place] [address] Pharmacist Pharmacy 09/06/21 Dianne Garcia, ROSELYN.SALES ORDER ADMINISTRATOR [address] [place] [address] Referring General Surgery 02/20/23 03/02/23 [facility] [address] [place] [address] Transitional Care Pharmacist Pharmacy 02/21/23 03/22/23 Carlos Cline, RN [address] [place] [address] Primary Care [employer] Internal Medicine 02/21/23 03/23/23 Panfilo Oreilly MD [address] [place] [address] Home Care Provider Family Medicine 02/21/23 Bharat Gardner, LORENZO [address] [place] [address] Argon Tester Post Acute Care 02/21/23 Panfilo Oreilly MD [address] [place] [address] Referring Family Medicine 03/03/23 [employer] 12/17/17 [facility] Wound Center 07/23/18 [place] Patients 06/20/20 Assembler Mechanical Ordnance Relationship Specialty Start Date End Date Panfilo Oreilly MD [address] [place], [place] 875921 PCP - General Family Medicine 02/12/17 Shreya Mccray MD [address] [place] [address] Endocrinology 07/23/18 Berlin Dumont [address] [place] [address] Specialty Central Communications Specialist Pulmonary Disease 12/23/18 Brandee Cotter (Auto Adjudication Specialist) [address] [place] [address] Consulting Endocrinology 11/09/19 Berlin Dumont [address] [place] [address] Consulting Pulmonary Disease 11/12/19 [facility] [address] [place] [address] Pharmacist Pharmacy 09/06/21 Dianne Garcia, ROSELYN.SALES ORDER ADMINISTRATOR [address] [place] [address] Referring General Surgery 02/20/23 03/02/23 Annie Borges, [facility] [address] [place] [address] Transitional Care Pharmacist Pharmacy 02/21/23 03/22/23 Carlos Cline, LORENZO [address] [place] [address] Primary Care [employer] Internal Medicine 02/21/23 03/23/23 Panfilo Oreilly MD [address] [place] [address] Home Care Provider Family Medicine 02/21/23 Bharat Gardner, RN [address] [place] [address] Argon Tester Post Acute Care 02/21/23 [facility] 12/17/17 [facility] Wound Center 07/23/18 [place] Patients 06/20/20 Assembler Mechanical Ordnance Relationship Specialty Start Date End Date Panfilo Oreilly MD [address] [place], [place] [id number] PCP - General Family Medicine 02/12/17 Shreya Mccray MD [address] [place] [address] Endocrinology 07/23/18 Berlin Dumont [address] [place] [address] Specialty Central Communications Specialist Pulmonary Disease 12/23/18 Brandee Cotter (Auto Adjudication Specialist) [address], [place] [id number] Consulting Endocrinology 11/09/19 Berlin Dumont [address] [place] [address] Consulting Pulmonary Disease 11/12/19 [facility] [address] [place] [address] Pharmacist Pharmacy 09/06/21 [facility] [address] [place], [place] 63030[address] Transitional Care Pharmacist Pharmacy 02/21/23 03/22/23 Carlos Cline, LORENZO [address] [place], [place] 0671295 Primary Care [employer] Internal Medicine 02/21/23 03/23/23 Panfilo Oreilly MD [address] [place], [place] 68311691 Home Care Provider Family Medicine 02/21/23 Bharat Gardner, LORENZO [address] [place], [place] 4666731 Argon Tester Post Acute Care 02/21/23 Panfilo Oreilly MD [address] [place], [place] 86189691 Referring Family Medicine 03/03/23 [facility] 12/17/17 [facility] Wound Center 07/23/18 [place] Patients 06/20/20 Assembler Mechanical Ordnance Relationship Specialty Start Date End Date Panfilo Oreilly MD [address] [place], [place] [id number] PCP - General Family Medicine 02/12/17 Shreya Mccray MD [address] [place], [place] [id number] Endocrinology 07/23/18 Berlin Dumont [address] [place] [address] Specialty Central Communications Specialist Pulmonary Disease 12/23/18 Brandee Cotter (Auto Adjudication Specialist) [address] [place] [address] Consulting Endocrinology 11/09/19 Berlin Dumont [address] [place], [place] 067881 Consulting Pulmonary Disease 11/12/19 Robert Sanchez, [facility] [address], [place] [id number] Pharmacist Pharmacy 09/06/21 Annie Borges, [facility] [address] [place] [address] Transitional Care Pharmacist Pharmacy 02/21/23 03/22/23 Carlos Cline, LORENZO [address] [place], [place] 0455095 Primary Care [employer] Internal Medicine 02/21/23 03/23/23 Panfilo Oreilly MD [address] [place], [place] 79437691 Home Care Provider Family Medicine 02/21/23 Bharat Gardner, LORENZO [address] [place], [place] 3016831 Argon Tester Post Acute Care 02/21/23 Panfilo Oreilly MD [address] [place], [place] 72486691 Referring Family Medicine 03/03/23 [facility] 12/17/17 [facility] Wound Center 07/23/18 [place] Patients 06/20/20 Assembler Mechanical Ordnance Relationship Specialty Start Date End Date Panfilo Oreilly MD [address] [place], [place] [id number] PCP - General Family Medicine 02/12/17 Shreya Mccray MD [address] [place], [place] [id number] Endocrinology 07/23/18 Berlin Dumont [address] [facility] [place] [place] [id number] Specialty Central Communications Specialist Pulmonary Disease 12/23/18 Brandee Cotter (Auto Adjudication Specialist) [address], [place] [id number] Consulting Endocrinology 11/09/19 Berlin Dumont [address] [place] [address] Consulting Pulmonary Disease 11/12/19 Robert Sanchez, [facility] [address] [place] [address] Pharmacist Pharmacy 09/06/21 [facility] [address] [place] [address] Transitional Care Pharmacist Pharmacy 02/21/23 03/22/23 Carlos Cline, LORENZO [address] [place] [address] Primary Care [employer] Internal Medicine 02/21/23 03/23/23 Panfilo Oreilly MD [address] [place], [place] [phone] Home Care Provider Family Medicine 02/21/23 Bharat Gardner, RN [address] [place] [address] Argon Tester Post Acute Care 02/21/23 Panfilo Oreilly MD [address] [place], [place] [phone] Referring Family Medicine 03/03/23 [facility] 12/17/17 [facility] Wound Center 07/23/18 [place] 06/20/20 Team Status: Active Member Role Status Dates Dr. Tino Oreilly MD Primary Care Provider Acti david Kaiser MD Emergency Provider Active Dr. Faraz Lange , DO Admit Provider, At tending Provider, Other Provider Active Team Status: Active Member Role Status Dates Dr. Tino Oreilly MD Primary Care Provider Acti ve Dr. Jozef Kaiser MD Emergency Provider Active Dr. Faraz Lange , DO Admit Provider, Other Provider A ctive Dr. Berlin Dumont MD Other Provider Active Dr. Ace Sanders , Other Provider Active Dr. Fadi Box MD Attending Provider, Other Pro vider Active Dr. Jarrett Villalobos MD Other Provider Active Nelly Hunter ROPING TENDER, ROPING TENDER-C Other Provider Active Team Status: Active Member Role Status Dates Dr. Tino Oreilly MD Primary Care Provider Acti ve Dr. Jozef Kaiser MD Emergency Provider Active Dr. Faraz Lange , DO Admit Provider, Other Provider A ctive Dr. [place] Dumont MD Other Provider Active Dr. Ace Sanders , Other Provider Active Dr. Fadi Box MD Other Provider Active Dr. Jarrett Villalobos MD Other Provider Active Nelly Hunter ROPING TENDER, ROPING TENDER-C Other Provider Active Dr. Chris Gill MD [...] Villalobos MD Other Provider Active Nelly Hunter ROPING TENDER, ROPING TENDER-C Other Provider Active Dr. Ling Neville MD [...] Villalobos MD Other Provider Active Nelly Hunter ROPING TENDER, ROPING TENDER-C Other Provider Active Dr. Ling Neville MD [...] Villalobos MD Other Provider Active Nelly Hunter ROPING TENDER, ROPING TENDER-C Other Provider Active Dr. Ling Neville MD Attending Provider Active Assembler Mechanical Ordnance Relationship Specialty Start Date End Date Panfilo Oreilly MD [address] [place], [place] [phone] PCP - General Family Medicine 02/12/17 Shreya Mccray MD [address] [place], [place] [id number] Endocrinology 07/23/18 Brandee Cotter (Auto Adjudication Specialist) [address], [place] [id number] Consulting Endocrinology 11/09/19 Annie Borges, [facility] [address] [place] [address] Transitional Care Pharmacist Pharmacy 02/21/23 03/22/23 Carlos Cline, RN [address] [place] [address] Primary Care [employer] Internal Medicine 02/21/23 03/23/23 Panfilo Oreilly MD [address] [place], [place] 26240691 Home Care Provider Family Medicine 03/05/23 Bharat Gardner, LORENZO [address] [place] [address] Argon Tester Post Acute Care 02/21/23 Ling Neville MD [address] [place], [place] 42529691 Referring Internal Medicine 03/05/23 [facility] 12/17/17 [facility] Wound Center 07/23/18 [place] Patients 06/20/20 Assembler Mechanical Ordnance Relationship Specialty Start Date End Date Panfilo Oreilly MD [address] [place], [place] [id number] PCP - General Family Medicine 02/12/17 Shreya Mccray MD [address] [place], [place] 89726691 Endocrinology 07/23/18 Brandee Cotter (Auto Adjudication Specialist) [address], [place] [id number] Consulting Endocrinology 11/09/19 [facility] [address] [place] [address] Transitional Care Pharmacist Pharmacy 02/21/23 03/22/23 Carlos Cline, RN [address] [place] [address] Primary Care [employer] Internal Medicine 02/21/23 03/23/23 Panfilo Oreilly MD [address] [place], [place] [id number] Home Care Provider Family Medicine 03/05/23 Bharat Gardner, RN [address] [place] [address] Argon Tester Post Acute Care 02/21/23 Ling Neville MD [address] [place], [place] 36947691 Referring Internal Medicine 03/05/23 [facility] 12/17/17 [facility] Wound Center 07/23/18 [place] [facility] Patients 06/20/20 Assembler Mechanical Ordnance Relationship Specialty Start Date End Date Panfilo Oreilly MD [address] [place], [place] [id number] PCP - General Family Medicine 02/12/17 Shreya Mccray MD [address] [place], [place] [id number] Endocrinology 07/23/18 Brandee Cotter (Auto Adjudication Specialist) [address], [place] [id number] Consulting Endocrinology 11/09/19 [facility] [address] [place] [address] Transitional Care Pharmacist Pharmacy 02/21/23 03/22/23 Carlos Cline, LORENZO [address] [place] [address] Primary Care [employer] Internal Medicine 02/21/23 03/23/23 Panfilo Oreilly MD [address] [place], [place] 96345691 Home Care Provider Family Medicine 03/05/23 Bharat Gardner RN [address] [place] [address] Argon Tester Post Acute Care 02/21/23 Ling Neville MD [address] [place], [place] 45844691 Referring Internal Medicine 03/05/23 Bharat Gardner RN [address] [place] [address] Argon Tester Post Acute Care 03/06/23 [facility] 12/17/17 [facility] Wound Center 07/23/18 [place] [facility] Patients 06/20/20 Assembler Mechanical Ordnance Relationship Specialty Start Date End Date Panfilo Oreilly MD [address] [place], [place] [phone] PCP - General Family Medicine 02/12/17 Shreya Mccray MD [address] [place], [place] 279101 Endocrinology 07/23/18 Brandee Cotter (Auto Adjudication Specialist) [address], [place] [id number] Consulting Endocrinology 11/09/19 [facility] [address] [place] [address] Transitional Care Pharmacist Pharmacy 02/21/23 03/22/23 Carlos Cline, LORENZO [address] [place], [place] 1266495 Primary Care [employer] Internal Medicine 02/21/23 03/23/23 Panfilo Oreilly MD [address] [place], [place] 64874691 Home Care Provider Family Medicine 03/05/23 Bharat Gardner, LORENZO [address] [place] [address] Argon Tester Post Acute Care 02/21/23 Ling Neville MD [address] [place] [address] Referring Internal Medicine 03/05/23 Bharat Gardner RN [address] [place] [address] Argon Tester Post Acute Care 03/06/23 [facility] 12/17/17 [facility] Wound Center 07/23/18 [place] [facility] Patients 06/20/20 Assembler Mechanical Ordnance Relationship Specialty Start Date End Date Panfilo Oreilly MD [address] [place], [place] [id number] PCP - General Family Medicine 02/12/17 Shreya Mccray MD [address] [place] [address] Endocrinology 07/23/18 Brandee Cotter (Auto Adjudication Specialist) [address], [place] [id number] Consulting Endocrinology 11/09/19 [facility] [address] [place] [address] Transitional Care Pharmacist Pharmacy 02/21/23 03/22/23 Carlos Cline, LORENZO [address] [place] [address] Primary Care [employer] Internal Medicine 02/21/23 03/23/23 Panfilo Oreilly MD [address] [place], [place] 24694691 Home Care Provider Family Medicine 03/05/23 Bharat Gardner, LORENZO [address] [place] [address] Argon Tester Post Acute Care 02/21/23 Ling Neville MD [address] [place] [address] Referring Internal Medicine 03/05/23 Bharat Gardner, LORENZO [address] [place] [address] Argon Tester Post Acute Care 03/06/23 [facility] 12/17/17 [facility] Wound Center 07/23/18 [place] [facility] Patients 06/20/20 Assembler Mechanical Ordnance Relationship Specialty Start Date End Date Panfilo Oreilly MD [address] [place], [place] 542991 PCP - General Family Medicine 02/12/17 Shreya Mccray MD [address] [place], [place] 858101 Endocrinology 07/23/18 Brandee Cotter (Auto Adjudication Specialist) [address], [place] [id number] Consulting Endocrinology 11/09/19 Annie Borges, [facility] [address] [place] [address] Transitional Care Pharmacist Pharmacy 02/21/23 03/22/23 Carlos Cline RN [address] [place], [place] [id number] Primary Care [employer] Internal Medicine 02/21/23 03/23/23 Panfilo Oreilly MD [address] [place], [place] [phone] Home Care Provider Family Medicine 03/05/23 Bharat Gardner, LORENZO [address] [place] [address] Argon Tester Post Acute Care 02/21/23 Ling Neville MD [address] [place], [place] 94659691 Referring Internal Medicine 03/05/23 Bharat Gardner, LORENZO [address] [place] [address] Argon Tester Post Acute Care 03/06/23 [facility] 12/17/17 [facility] Wound Center 07/23/18 [place] [facility] Patients 06/20/20 Assembler Mechanical Ordnance Relationship Specialty Start Date End Date Panfilo Oreilly MD [address] [place], [place] [id number] PCP - General Family Medicine 02/12/17 Shreya Mccray MD [address] [place] [address] Endocrinology 07/23/18 Berlin Dumont [address] [place] [address] Specialty Central Communications Specialist Pulmonary Disease 12/23/18 03/04/23 Brandee Cotter (Auto Adjudication Specialist) [address], [place] [id number] Consulting Endocrinology 11/09/19 Berlin Dumont [address] [facility] [place] [address] Consulting Pulmonary Disease 11/12/19 03/04/23 [facility] [address] [place] [address] Pharmacist Pharmacy 09/06/21 03/04/23 Dianne Garcia, SHOOK MACHINE OPERATOR.SALES ORDER ADMINISTRATOR [address] [place] [address] Referring General Surgery 02/20/23 03/02/23 [facility] [address] [place] [address] Transitional Care Pharmacist Pharmacy 02/21/23 03/22/23 Carlos Cline, LORENZO [address] [place], [place] [phone] Primary Care [employer] Internal Medicine 02/21/23 03/23/23 Panfilo Oreilly MD [address] [place] [address] Home Care Provider Family Medicine 03/05/23 Bharat Gardner, LORENZO [address] [place] [address] Argon Tester Post Acute Care 02/21/23 Panfilo Oreilly MD [address] [place], [place] [id number] Referring Family Medicine 03/03/23 03/04/23 Ling Neville MD [address] [place], [place] 653121 Referring Internal Medicine 03/05/23 Bharat Gardner, LORENZO [address] [place], [place] 1724631 Argon Tester Post Acute Care 03/06/23 [facility] 12/17/17 [facility] Wound Center 07/23/18 [facility] 06/20/20 Assembler Mechanical Ordnance Relationship Specialty Start Date End Date Panfilo Oreilly MD [address] [place], [place] [id number] PCP - General Family Medicine 02/12/17 Shreya Mccray MD [address] [place], [place] [id number] Endocrinology 07/23/18 Brandee Cotter (Auto Adjudication Specialist) [address], [place] [id number] Consulting Endocrinology 11/09/19 Annie Borges, Formerly [facility] [address] [place] [address] Transitional Care Pharmacist Pharmacy 02/21/23 03/22/23 Carlos Cline, LORENZO [address] [place] [address] Primary Care Wire Mill Rover Internal Medicine 02/21/23 03/23/23 Panfilo Oreilly MD [address] [place], [place] [id number] Home Care Provider Family Medicine 03/05/23 Bharat Gardner, RN [address] [place] [address] Argon Tester Post Acute Care 02/21/23 Ling Neville MD [address] [place] [address] Referring Internal Medicine 03/05/23 Bharat Gardner RN [address] [place] [address] Argon Tester Post Acute Care 03/06/23 [facility] 12/17/17 [facility] Wound Center 07/23/18 [facility] Patients 06/20/20 Assembler Mechanical Ordnance Relationship Specialty Start Date End Date Panfilo Oreilly MD [address] [place], [place] [id number] PCP - General Family Medicine 02/12/17 Shreya Mccray MD [address] [place], [place] [id number] Endocrinology 07/23/18 Brandee Cotter (Auto Adjudication Specialist) [address], [place] [id number] Consulting Endocrinology 11/09/19 Annie Borges, Formerly [facility] [address] [place] [address] Transitional Care Pharmacist Pharmacy 02/21/23 03/22/23 Carlos Cline, LORENZO [address] [place] [address] Primary Care Wire Mill Rover Internal Medicine 02/21/23 03/23/23 Panfilo Oreilly MD [address] [place], [place] [id number] Home Care Provider Family Medicine 03/05/23 Bharat Gardner RN [address] [place], [place] 1762931 Argon Tester Post Acute Care 02/21/23 Ling Neville MD [address] [place] [address] Referring Internal Medicine 03/05/23 Bharat Gardner RN [address] [place], [place] 0567731 Argon Tester Post Acute Care 03/06/23 [place] 12/17/17 [facility] Wound Center 07/23/18 [facility] 06/20/20 Assembler Mechanical Ordnance Relationship Specialty Start Date End Date Panfilo Oreilly MD [address] [place], [place] [id number] PCP - General Family Medicine 02/12/17 Shreya Mccray MD [address] [place], [place] [id number] Endocrinology 07/23/18 Brandee Cotter (Auto Adjudication Specialist) [address], [place] [id number] Consulting Endocrinology 11/09/19 [facility] [address] [place], [place] [id number] Transitional Care Pharmacist Pharmacy 02/21/23 03/22/23 Carlos Cline, LORENZO [address] [place], [place] 2536495 Primary Care Wire [employer]over Internal Medicine 02/21/23 03/23/23 Panfilo Oreilly MD [address] [place], [place] [id number] Home Care Provider Family Medicine 03/05/23 Bharat Gardner RN [address] [place] [address] Argon Tester Post Acute Care 02/21/23 Ling Neville MD [address] [place], [place] 775361 Referring Internal Medicine 03/05/23 Bharat Gardner, LORENZO [address] [place] [address] Argon Tester Post Acute Care 03/06/23 [facility] 12/17/17 [facility] Wound Center 07/23/18 [facility] 06/20/20 Assembler Mechanical Ordnance Relationship Specialty Start Date End Date Panfilo Oreilly MD [address] [place], [place] [id number] PCP - General Family Medicine 02/12/17 Shreya Mccray MD [address] [place], [place] [id number] Endocrinology 07/23/18 Brandee Cotter (Auto Adjudication Specialist) [address], [place] [id number] Consulting Endocrinology 11/09/19 [facility] [address] [place], [place] [phone] Transitional Care Pharmacist Pharmacy 02/21/23 03/22/23 Carlos Cline, LORENZO [address] [place], [place] 0685595 Primary Care Wire [employer] Rover Internal Medicine 02/21/23 03/23/23 Panfilo Oreilly MD [address] [place], [place] [id number] Home Care Provider Family Medicine 03/05/23 Bharat Gardner RN [address] [place] [address] Argon Tester Post Acute Care 02/21/23 Ling Neville MD [address] [place], [place] 490791 Referring Internal Medicine 03/05/23 Bharat Gardner, LORENZO [address] [place] [address] Argon Tester Post Acute Care 03/06/23 [facility] 12/17/17 [facility] Wound Center 07/23/18 [facility] 06/20/20 Assembler Mechanical Ordnance Relationship Specialty Start Date End Date Panfilo Oreilly MD [address] [place], [place] [id number] PCP - General Family Medicine 02/12/17 Shreya Mccray MD [address] [place], [place] [id number] Endocrinology 07/23/18 Brandee Cotter (Auto Adjudication Specialist) [address], [place] [id number] Consulting Endocrinology 11/09/19 Annie Borges, Formerly [facility] [address] [place] [address] Transitional Care Pharmacist Pharmacy 02/21/23 03/22/23 Carlos Cline RN [address] [place] [address] Primary Care Wire [employer] Rover Internal Medicine 02/21/23 03/23/23 Panfilo Oreilly MD [address] [place], [place] [id number] Home Care Provider Family Medicine 03/05/23 Bharat Gardner, LORENZO [address] [place] [address] Argon Tester Post Acute Care 02/21/23 Ling Neville MD [address] [facility] [place] [place] [phone] Referring Internal Medicine 03/05/23 Bharat Gardner, LORENZO [address] [place] [address] Argon Tester Post Acute Care 03/06/23 [facility] 12/17/17 [facility] Wound Center 07/23/18 [facility] 06/20/20 Assembler Mechanical Ordnance Relationship Specialty Start Date End Date Panfilo Oreilly MD [address] [place], [place] [phone] PCP - General Family Medicine 02/12/17 Shreya Mccray MD [address] [place], [place] [id number] Endocrinology 07/23/18 Brandee Cotter (Auto Adjudication Specialist) [address], [place] [phone] Consulting Endocrinology 11/09/19 [facility] [address] [place] [address] Transitional Care Pharmacist Pharmacy 02/21/23 03/22/23 Carlos Cline RN [address] [place] [address] Primary Care Wire Mill Rover Internal Medicine 02/21/23 03/23/23 Panfilo Oreilly MD [address] [place], [place] [id number] Home Care Provider Family Medicine 03/05/23 Bharat Gardner, LORENZO [address] [place] [address] Argon Tester Post Acute Care 02/21/23 Ling Neville MD [address] [place], [place] [phone] Referring Internal Medicine 03/05/23 Bharat Gardner RN [address] [place] [address] Argon Tester Post Acute Care 03/06/23 [facility] 12/17/17 [facility] Wound Center 07/23/18 [facility] 06/20/20 Assembler Mechanical Ordnance Relationship Specialty Start Date End Date Panfilo Oreilly MD [address] [place], [place] 219881 PCP - General Family Medicine 02/12/17 Shreya Mccray MD [address] [place] [address] Endocrinology 07/23/18 Berlin Dumont [address] [place] [address] Specialty Central Communications Specialist Pulmonary Disease 12/23/18 03/04/23 Brandee Cotter (Auto Adjudication Specialist) [address], [place] [id number] Consulting Endocrinology 11/09/19 Berlin Dumont [address] [place] [address] Consulting Pulmonary Disease 11/12/19 03/04/23 [facility] [address] [place] [address] Pharmacist Pharmacy 09/06/21 03/04/23 Dianne Garcia, ROSELYN.SALES ORDER ADMINISTRATOR [address] [place] [address] Referring General Surgery 02/20/23 03/02/23 Annie Borges, Formerly [facility] [address] [place] [address] Transitional Care Pharmacist Pharmacy 02/21/23 03/22/23 Carlos Cline, LORENZO [address] [place], [place] [phone] Primary Care [employer] Rover Internal Medicine 02/21/23 03/23/23 Panfilo Oreilly MD [address] [place], [place] [id number] Home Care Provider Family Medicine 03/05/23 Bharat Gardner, LORENZO [address] [place] [address] Argon Tester Post Acute Care 02/21/23 Panfilo Oreilly MD [address] [place], [place] [phone] Referring Family Medicine 03/03/23 03/04/23 Ling Neville MD [address] [place], [place] [id number] Referring Internal Medicine 03/05/23 Bharat Gardner, LORENZO [address] [place] [address] Argon Tester Post Acute Care 03/06/23 [facility] 12/17/17 [facility] Wound Center 07/23/18 [facility] 06/20/20 Assembler Mechanical Ordnance Relationship Specialty Start Date End Date Panfilo Oreilly MD [address] [place], [place] [phone] PCP - General Family Medicine 02/12/17 Shreya Mccray MD [address] [place], [place] [phone] Endocrinology 07/23/18 Brandee Cotter (Auto Adjudication Specialist) [address], [place] [id number] Consulting Endocrinology 11/09/19 Panfilo Oreilly MD [address] [place] [address] Home Care Provider Family Medicine 03/05/23 Bharat Gardner, RN [address] [place] [address] Argon Tester Post Acute Care 02/21/23 Ling Neville MD [address] [place], [place] 471681 Referring Internal Medicine 03/05/23 Bharat Gardner, LORENZO [address] [place] [address] Argon Tester Post Acute Care 03/06/23 [facility] 12/17/17 [facility] Wound Center 07/23/18 [facility] 06/20/20 Assembler Mechanical Ordnance Relationship Specialty Start Date End Date Panfilo Oreilly MD [address] [place] [address] PCP - General Family Medicine 02/12/17 Shreya Mccray MD [address] [place] [address] Endocrinology 07/23/18 Berlin Dumont [address] [place] [address] Specialty Central Communications Specialist Pulmonary Disease 12/23/18 03/04/23 Brandee Cotter (Auto Adjudication Specialist) [address], [place] [id number] Consulting Endocrinology 11/09/19 Berlin Dumont [address] [place] [address] Consulting Pulmonary Disease 11/12/19 03/04/23 Robert Sanchez Former[facility] [address] [place], [place] [phone] Pharmacist Pharmacy 09/06/21 03/04/23 Raquel Payne, pizza hut team member Wire Mill Rover 01/17/23 02/13/23 Dianne Garcia, SHOOK MACHINE OPERATOR.SALES ORDER ADMINISTRATOR [address] [place] [address] Referring General Surgery 02/20/23 03/02/23 [facility] [address] [place], [place] [id number] Transitional Care Pharmacist Pharmacy 02/21/23 03/22/23 Carlos Cline, LORENZO [address] [place], [place] [phone] Primary Care Wire [employer] Rover Internal Medicine 02/21/23 03/23/23 Panfilo Oreilly MD [address] [place], [place] [phone] Home Care Provider Family Medicine 03/05/23 Bharat Gardner, LORENZO [address] [place], [place] 9272731 Argon Tester Post Acute Care 02/21/23 Panfilo Oreilly MD [address] [place], [place] [phone] Referring Family Medicine 03/03/23 03/04/23 Ling Neville MD [address] [place], [place] 90055691 Referring Internal Medicine 03/05/23 Bharat Gardner, LORENZO [address] [place] [address] Argon Tester Post Acute Care 03/06/23 [facility] 12/17/17 [facility] Wound Center 07/23/18 [facility] 06/20/20 Assembler Mechanical Ordnance Relationship Specialty Start Date End Date Panfilo Oreilly MD [address] [place] [address] PCP - General Family Medicine 02/12/17 Shreya Mccray MD [address] [place] [address] Endocrinology 07/23/18 Brandee Cotter (Auto Adjudication Specialist) [address], [place] [id number] Consulting Endocrinology 11/09/19 Panfilo Oreilly MD [address] [place] [address] Home Care Provider Family Medicine 03/05/23 Bharat Gardner RN [address] [place] [address] Argon Tester Post Acute Care 02/21/23 Ling Neville MD [address] [place], [place] 967861 Referring Internal Medicine 03/05/23 Bharat Gardner RN [address] [place] [address] Argon Tester Post Acute Care 03/06/23 [facility] 12/17/17 [facility] Wound Center 07/23/18 [facility] 06/20/20 Assembler Mechanical Ordnance Relationship Specialty Start Date End Date Panfilo Oreilly MD [address] [place], [place] [phone] PCP - General Family Medicine 02/12/17 Shreya Mccray MD [address] [place] [address] Endocrinology 07/23/18 Brandee Cotter (Auto Adjudication Specialist) [address] [place] [address] Consulting Endocrinology 11/09/19 Panfilo Oreilly MD [address] [place], [place] 885301 Home Care Provider Family Medicine 03/05/23 Bharat Gardner, LORENZO [address] [place], [place] 1823231 Argon Tester Post Acute Care 02/21/23 Ling Neville MD [address] [place] [address] Referring Internal Medicine 03/05/23 Bharat Gardner, LORENZO [address] [place] [address] Argon Tester Post Acute Care 03/06/23 [facility] 12/17/17 [facility] Wound Center 07/23/18 [facility] Patients 06/20/20 Assembler Mechanical Ordnance Relationship Specialty Start Date End Date Panfilo Oreilly MD [address] [place] [address] PCP - General Family Medicine 02/12/17 Shreya Mccray MD [address] [place], [place] [id number] Endocrinology 07/23/18 Brandee Cotter (Auto Adjudication Specialist) [address] [place] [address] Consulting Endocrinology 11/09/19 Panfilo Oreilly MD [address] [place], [place] [phone] Home Care Provider Family Medicine 03/05/23 Bharat Gardner, LORENZO [address] [place], [place] 0511331 Argon Tester Post Acute Care 02/21/23 Ling Neville MD [address] [place] [address] Referring Internal Medicine 03/05/23 Bharat Gardner RN [address] [place], [place] 5233131 Argon Tester Post Acute Care 03/06/23 [facility] 12/17/17 [facility] Wound Center 07/23/18 [facility] 06/20/20 Assembler Mechanical Ordnance Relationship Specialty Start Date End Date Panfilo Oreilly MD [address] [place] [address] PCP - General Family Medicine 02/12/17 Shreya Mccray MD [address] [place] [address] Endocrinology 07/23/18 Panfilo Oreilly MD [address] [place] [address] Home Care Provider Family Medicine 03/05/23 Bharat Gardner RN [address] [place] [address] Argon Tester Post Acute Care 03/06/23 Chris Gill [address] [place] [address] Referring Internal Medicine 04/24/23 [facility] 12/17/17 [facility] Wound Center 07/23/18 [facility] 06/20/20 Assembler Mechanical Ordnance Relationship Specialty Start Date End Date Panfilo Oreilly MD [address] [place] [address] PCP - General Family Medicine 02/12/17 Shreya Mccray MD [address] [place] [address] Endocrinology 07/23/18 Panfilo Oreilly MD [address] [facility] [place] [address] Home Care Provider Family Medicine 03/05/23 Bharat Gardner RN [address] [place], [place] 4898131 Argon Tester Post Acute Care 03/06/23 Chris Gill [address] [place] [address] Referring Internal Medicine 04/24/23 [facility] 12/17/17 [facility] Wound Center 07/23/18 [facility] 06/20/20 Assembler Mechanical Ordnance Relationship Specialty Start Date End Date Panfilo Oreilly MD [address] [place] [address] PCP - General Family Medicine 02/12/17 Shreya Mccray MD [address] [place] [address] Endocrinology 07/23/18 Panfilo Oreilly MD [address] [place] [address] Home Care Provider Family Medicine 03/05/23 Bharat Gardner RN [address] [place] [address] Argon Tester Post Acute Care 03/06/23 Chris Gill [address] [facility] [place] [address] Referring Internal Medicine 04/24/23 [facility] 12/17/17 [facility] Wound Center 07/23/18 [facility] 06/20/20 Assembler Mechanical Ordnance Relationship Specialty Start Date End Date Panfilo Oreilly MD [address] [place] [address] PCP - General Family Medicine 02/12/17 Shreya Mccray MD [address] [place] [address] Endocrinology 07/23/18 Panfilo Oreilly MD [address] [place] [address] Home Care Provider Family Medicine 03/05/23 Bharat Gardner RN [address] [place] [address] Argon Tester Post Acute Care 03/06/23 Chris Gill [address] [facility] [place] [address] Referring Internal Medicine 04/24/23 [facility] 12/17/17 [facility] Wound Center 07/23/18 [facility] Patients 06/20/20 Assembler Mechanical Ordnance Relationship Specialty Start Date End Date Panfilo Oreilly MD [address] [place] [address] PCP - General Family Medicine 02/12/17 Shreya Mccray MD [address] [place] [address] Endocrinology 07/23/18 Panfilo Oreilly MD [address] [place] [address] Home Care Provider Family Medicine 03/05/23 Bharat Gardner RN [address] [place], [place] 2531531 Argon Tester Post Acute Care 03/06/23 Chris Gill [address] [facility] [place] [address] Referring Internal Medicine 04/24/23 [facility] 12/17/17 [facility] Wound Center 07/23/18 [facility] 06/20/20 Assembler Mechanical Ordnance Relationship Specialty Start Date End Date Panfilo Oreilly MD [address] [facility] [place] [address] PCP - General Family Medicine 02/12/17 Shreya Mccray MD [address] [facility] [place] [address] Endocrinology 07/23/18 Panfilo Oreilly MD [address] [facility] [place] [address] Home Care Provider Family Medicine 03/05/23 Chris Gill [address] [place] [address] Referring Internal Medicine 04/24/23 [facility] 12/17/17 [facility] Wound Center 07/23/18 [facility] 06/20/20 Assembler Mechanical Ordnance Relationship Specialty Start Date End Date Panfilo Oreilly MD [address] [facility] [place] [address] PCP - General Family Medicine 02/12/17 Shreya Mccray MD [address] [facility] [place] [address] Endocrinology 07/23/18 Panfilo Oreilly MD [address] [facility] [place] [address] Home Care Provider Family Medicine 03/05/23 Chris Gill [address] [place] [address] Referring Internal Medicine 04/24/23 [facility] 12/17/17 [facility] Wound Center 07/23/18 [place] [facility] 06/20/20 Assembler Mechanical Ordnance Relationship Specialty Start Date End Date Panfilo Oreilly MD [address] [facility], [place] 418884 [phone] PCP - General Family Medicine 02/12/17 Shreya Mccray MD [address] [facility] [address] Endocrinology 07/23/18 Panfilo Oreilly MD [address] [facility] [place] [address] Home Care Provider Family Medicine 03/05/23 Chris Gill [address] [place] [address] Referring Internal Medicine 04/24/23 [facility] 12/17/17 [facility] Wound Center 07/23/18 [facility] 06/20/20 Assembler Mechanical Ordnance Relationship Specialty Start Date End Date Panfilo Oreilly MD [address] [facility] [place] [address] PCP - General Family Medicine 02/12/17 Shreya Mccray MD [address] [facility] [place] [address] Endocrinology 07/23/18 Panfilo Oreilly MD [address] [facility] [address] Home Care Provider Family Medicine 03/05/23 Bharat Gardner, RN [address] [place] [address] Argon Tester Post Acute Care 03/06/23 05/01/23 Chris Gill [address] [place] [address] Referring Internal Medicine 04/24/23 [facility] 12/17/17 [facility] Wound Center 07/23/18 [facility] 06/20/20 Assembler Mechanical Ordnance Relationship Specialty Start Date End Date Panfilo Oreilly MD [address] [place], [place] 388461 PCP - General Family Medicine 02/12/17 Shreya Mccray MD [address] [place] [address] Endocrinology 07/23/18 Panfilo Oreilly MD [address] [place], [place] 481201 Home Care Provider Family Medicine 03/05/23 Chris Gill MD [address] [place] [address] Referring Internal Medicine 04/24/23 [facility] 12/17/17 [facility] Wound Center 07/23/18 [facility] 06/20/20 Assembler Mechanical Ordnance Relationship Specialty Start Date End Date Panfilo Oreilly MD [address] [place] [address] PCP - General Family Medicine 02/12/17 Shreya Mccray MD [address] [place], [place] 065941 Endocrinology 07/23/18 Brandee Cotter (Auto Adjudication Specialist) [address] [place], [place] [id number] Consulting Endocrinology 11/09/19 04/23/23 [facility] [address] [place] [address] Transitional Care Pharmacist Pharmacy 02/21/23 03/22/23 Carlos Cline RN [address] [place] [address] Primary Care Wire Mill Rover Internal Medicine 02/21/23 03/23/23 Panfilo Oreilly MD [address] [place], [place] 00034691 Home Care Provider Family Medicine 03/05/23 Bharat Gardner, LORENZO [address] [place] [address] Argon Tester Post Acute Care 02/21/23 04/23/23 Ling Neville MD [address] [facility] [place] [address] Referring Internal Medicine 03/05/23 04/23/23 Bharat Gardner, LORENZO [address] [place], [place] 3148331 Argon Tester Post Acute Care 03/06/23 05/01/23 Chris Gill MD [address] [place], [place] 88704691 Referring Internal Medicine 04/24/23 [facility] 12/17/17 [facility] Wound Center 07/23/18 [facility] 06/20/20 Assembler Mechanical Ordnance Relationship Specialty Start Date End Date Panfilo Oreilly MD [address] [place], [place] [id number] PCP - General Family Medicine 02/12/17 Shreya Mccray MD [address] [place] [address] Endocrinology 07/23/18 Panfilo Oreilly MD [address] [place], [place] 558251 Home Care Provider Family Medicine 03/05/23 Chris Gill MD [address] [place] [address] Referring Internal Medicine 04/24/23 [facility] 12/17/17 [facility] Wound Center 07/23/18 [facility] 06/20/20 Assembler Mechanical Ordnance Relationship Specialty Start Date End Date Panfilo Oreilly MD [address] [place], [place] 859351 PCP - General Family Medicine 02/12/17 Shreya Mccray MD [address] [place], [place] 010161 Endocrinology 07/23/18 Panfilo Oreilly MD [address] [place], [place] 048561 Home Care Provider Family Medicine 03/05/23 Chris Gill MD [address] [place] [address] Referring Internal Medicine 04/24/23 [facility] 12/17/17 [facility] Wound Center 07/23/18 [facility] 06/20/20 Assembler Mechanical Ordnance Relationship Specialty Start Date End Date Shreya Mccray MD Endocrinology 07/23/18 Panfilo Oreilly MD [address] [place] [address] Home Care Provider Family Medicine 03/05/23 Chris Gill MD [address] [place], [place] 427221 Referring Internal Medicine 04/24/23 [facility] 12/17/17 [facility] Wound Center 07/23/18 [place] [facility] 06/20/20 Assembler Mechanical Ordnance Relationship Specialty Start Date End Date Shreya Mccray MD Endocrinology 07/23/18 Panfilo Oreilly MD [address] [place], [place] 019451 Home Care Provider Family Medicine 03/05/23 Chris Gill MD [address] [place], [place] 355651 Referring Internal Medicine 04/24/23 [facility] 12/17/17 [facility] Wound Center 07/23/18 [place] [facility] 06/20/20 Assembler Mechanical Ordnance Relationship Specialty Start Date End Date Shreya Mccray MD Endocrinology 07/23/18 Panfilo Oreilly MD [address] [place], [place] 655541 Home Care Provider Family Medicine 03/05/23 Chris Gill MD [address] [place], [place] 51001691 Referring Internal Medicine 04/24/23 [facility] 12/17/17 [facility] Wound Center 07/23/18 [facility] 06/20/20 Assembler Mechanical Ordnance Relationship Specialty Start Date End Date Shreya Mccray MD Endocrinology 07/23/18 Panfilo Oreilly MD [address] [facility] [place] 853661 Home Care Provider Family Medicine 03/05/23 Chris Gill MD [address] [place] [place], [place] 526991 Referring Internal Medicine 04/24/23 [facility] 12/17/17 [facility] Wound Center 07/23/18 [facility] [...] Other Pro vider Active Dr. Belem Aponte , Attending Provider Active Assembler Mechanical Ordnance Relationship Specialty Start Date End Date Panfilo Oreilly MD [address] [place], [place] [phone] PCP - General Family Medicine 02/12/17 06/22/23 Shreya Mccray MD [address] [place], [place] 375691 Endocrinology 07/23/18 Panfilo Oreilly MD [address] [place], [place] 44012691 Home Care Provider Family Medicine 03/05/23 Chris Gill MD [address] [place], [place] 827691 Referring Internal Medicine 04/24/23 [facility] 12/17/17 [facility] Wound Center 07/23/18 [place] [facility] 06/20/20 Assembler Mechanical Ordnance Relationship Specialty Start Date End Date Shreya Mccray MD Endocrinology 07/23/18 Panfilo Oreilly MD [address] [place], [place] [phone] Home Care Provider Family Medicine 03/05/23 Chris Gill MD [address] [place], [place] 065042 [phone] Referring Internal Medicine 04/24/23 [facility] 12/17/17 [facility] Wound Center 07/23/18 [facility] 06/20/20 Assembler Mechanical Ordnance Relationship Specialty Start Date End Date Shreya Mccray MD Endocrinology 07/23/18 Panfilo Oreilly MD [address] [place], [place] [address] Home Care Provider Family Medicine 03/05/23 Chris Gill MD [address] [place], [place] [address] [phone] Referring Internal Medicine 04/24/23 [facility] 12/17/17 [facility] Wound Center 07/23/18 [facility] 06/20/20 Assembler Mechanical Ordnance Relationship Specialty Start Date End Date Shreya Mccray MD Endocrinology 07/23/18 Panfilo Oreilly MD [address] [facility] [place] [address] Home Care Provider Family Medicine 03/05/23 Chris Gill MD [address] [place], [place] [id number] [phone] Referring Internal Medicine 04/24/23 [facility] 12/17/17 [facility] Wound Center 07/23/18 [facility] [...] Care Provider Active Dr. Eulogio Jiang DO Emergency Provider Active Assembler Mechanical Ordnance Relationship Specialty Start Date End Date Panfilo Oreilly MD [address] [place] [address] PCP - General Family Medicine 02/12/17 06/22/23 Shreya Mccray MD [address] [place], [place] [id number] Endocrinology 07/23/18 Brandee Cotter (Auto Adjudication Specialist) [address] [place] [address] Consulting Endocrinology 11/09/19 04/23/23 Annie Borges Formerly [facility] [address] [place] [address] Transitional Care Pharmacist Pharmacy 02/21/23 03/22/23 Carlos Cline, LORENZO [address] [place] [address] Primary Care Wire Mill Rover Internal Medicine 02/21/23 03/23/23 Panfilo Oreilly MD [address] [place], [place] [id number] Home Care Provider Family Medicine 03/05/23 Bharat Gardner, LORENZO [address] [place] [address] Argon Tester Post Acute Care 02/21/23 04/23/23 Ling Neville MD [address] [facility] [place] [address] Referring Internal Medicine 03/05/23 04/23/23 Bharat Gardner, LORENZO [address] [place] [address] Argon Tester Post Acute Care 03/06/23 05/01/23 Chris Gill MD [address] [place], [place] [id number] Referring Internal Medicine 04/24/23 [facility] 12/17/17 [facility] Wound Center 07/23/18 [facility] Patients 06/20/20 Team Status: Inactive Member Role Status Dates Delmy Solorzano MD Primary Care Provider Active Dr. Eulogio Jiang DO Attending Provider, Emergency Pr ovider Active Assembler Mechanical Ordnance Relationship Specialty Start Date End Date Panfilo Oreilly MD [address] [place], [place] [id number] PCP - General Family Medicine 02/12/17 06/22/23 Shreya Mccray MD [address] [place], [place] [id number] Endocrinology 07/23/18 Berlin Dumont MD [address] [place] [address] Specialty Central Communications Specialist Pulmonary Disease 12/23/18 03/04/23 Brandee Cotter (Auto Adjudication Specialist), SALES ORDER ADMINISTRATOR [address] [place], [place] [id number] Consulting Endocrinology 11/09/19 04/23/23 Berlin Dumont MD [address] [place] [address] Consulting Pulmonary Disease 11/12/19 03/04/23 Robert Sanchez, Formerly [facility] [address] [place] [address] Pharmacist Pharmacy 09/06/21 03/04/23 [facility] 12/17/17 [facility] Wound Center 07/23/18 [facility] Patients 06/20/20 Assembler Mechanical Ordnance Relationship Specialty Start Date End Date Panfilo Oreilly MD [address] [place] [address] PCP - General Family Medicine 02/12/17 06/22/23 Shreya Mccray MD [address] [place] [address] Endocrinology 07/23/18 Berlin Dumont MD [address] [place] [address] Specialty Central Communications Specialist Pulmonary Disease 12/23/18 03/04/23 Brandee Cotter, SALES ORDER ADMINISTRATOR [address] [place] [address] Consulting Endocrinology 11/09/19 04/23/23 Berlin Dumont MD [address] [place], [place] [address] Consulting Pulmonary Disease 11/12/19 03/04/23 Robert Sanchez, Former[facility] [address] [facility] [place] [address] Pharmacist Pharmacy 09/06/21 03/04/23 [facility] 12/17/17 [facility] Wound Center 07/23/18 [facility] Patients 06/20/20 Assembler Mechanical Ordnance Relationship Specialty Start Date End Date Panfilo Oreilly MD [address] [facility] [place] [address] PCP - General Family Medicine 02/12/17 06/22/23 Shreya Mccray MD [address] [facility] [place] [address] Endocrinology 07/23/18 Berlin Dumont MD [address] [place] [address] Specialty Central Communications Specialist Pulmonary Disease 12/23/18 03/04/23 Brandee Cotter, SALES ORDER ADMINISTRATOR [address] [place] [place], [place] [id number] Consulting Endocrinology 11/09/19 04/23/23 Berlin Dumont MD [address] [place], [place] [address] Consulting Pulmonary Disease 11/12/19 03/04/23 [facility] 12/17/17 [facility] 07/23/18 [facility] [...] section and content) DATE CREATED AUTHOR 12/11/2022 [facility] DATE CREATED AUTHOR AUTHOR'S ORGANIZ ATION 02/21/2023 [facility] DATE CREATED AUTHOR AUTHOR'S ORGANIZ ATION 06/13/2025 [facility] DATE CREATED AUTHOR AUTHOR'S ORGANIZ ATION 07/17/2025 [facility] DATE CREATED AUTHOR AUTHOR'S ORGANIZ ATION 10/13/2025 [facility] FOR RECORDS PERTAINING TO PATIENTS [...] BE BASED ON THE PRIMARY CLINICAL RECORDS. [employer] provides no warranty or guarantee of the accuracy or completeness of information in this document.
[2025-10-31 21:51] LABS: Mucous, Urine 0 SEEN /hpf (<or=2+)
[2025-10-31 21:56] LABS: Color, Urine Yellow (Yellow); Glucose, Dipstick 100 mg/dl (Normal); Ketone-Dipstick Negative (Negative); Leukocyte Esterase-Dipstick 500 /ul (Negative); Nitrite-Dipstick Positive (Negative); Occult Blood-Urine 150 /ul (Negative); Protein-Dipstick 100 mg/dl (Negative); Specific Gravity, Urine 1.015 (1.002-1.030); Urine Bilirubin Dipstick Negative (Negative)
[2025-10-31] MEDS: Ceftriaxone 2 GM in 0.9% Normal Saline (50mL MB+) 50 ML IV (21:56)
[2025-10-31 22:04] LABS: Red Blood Cells-Urine 0-5 SEEN /hpf (0-5); Squamous Epithelial Cells - UA 0-5 SEEN /hpf (5-10)
[2025-10-31 22:07] LABS: Prothrombin Time (Protime)PT. 15.3 SECONDS (11.7-14.9)
[2025-10-31 22:08] LABS: Partial Thromboplast Time 34.0 Seconds (24.1-36.2)
[2025-10-31] MEDS: 0.9% Normal Saline (1000mL) 1,000 ML 1000 ML IV (22:25)
[2025-10-31 22:27] LABS: CPK Total, Creatine Kinase 149 U/L (24-195); Triglycerides 129 mg/dL
[2025-10-31 23:23] LABS: Troponin T High Sens 2 HR 53 ng/L (<=14)
--- NOTE | 2025-10-31 23:37 | PCM.HP.STD ---
[facility] - General General Date of Admission: 10/31/25 Date of Service: 10/31/25 Chief Complaint: Acute encephalopathy with respiratory distress [facility] Narrative MACARIO OVERTON, is a 50 F who presents to the emergency room and acute respiratory failure. Patient has significant past medical history of noncompliance with her obstructive sleep apnea treatment. She has does have a history of diabetes, pneumonia, congestive heart failure, kidney disease and has previously been intubated 5 different times according to ER doctor notes. Her BMI is currently 71.5. Patient is currently sedated and intubated and unable to obtain any further history. Laboratory studies show white blood cell count of 16.9, hemoglobin is 10.6, hematocrit 35.2, platelets 233, sodium 139, potassium 4.4, chloride 96, bicarb 29.9, BUN 26, creatinine 0.91 INR is 1.2, blood gas initially with a pH of 7.39 pCO2 57.7 pO2 39 while on nasal cannula oxygen, total bilirubin 0.45, AST 31, ALT 28, troponin 53. Urinalysis was positive for nitrites and 3+ bacteria, chest x-ray confirmed ET tube placement correctly with gastric tube in place as well along with cardiomegaly and vascular congestion. Patient will be admitted to the intensive care unit on ventilator with propofol drip for further critical care management. [facility] Medical History (Updated 10/31/25 @ 23:[address] Leonidse Mora MD) Morbid obesity MRSA (methicillin resistant staph aureus) culture positive Cellulitis of leg MRSA cellulitis of left foot Arthritis Non-smoker CHF (congestive heart failure) History of diabetes mellitus Anemia Hypoxia Venous stasis dermatitis of both lower extremities BMI 60.0-69.9, adult Noncompliance with CPAP treatment Acute on chronic respiratory failure with hypoxia and hypercapnia Perianal abscess Type 2 diabetes mellitus with hyperglycemia Contusion of knee, right Chronic diastolic (congestive) heart failure Depression Diabetes GERD (gastroesophageal reflux disease) BiPAP (biphasic positive airway pressure) dependence Sleep apnea On home oxygen therapy Smoker COPD (chronic obstructive pulmonary disease) Hypertension Congestive heart failure KERRY (acute kidney injury) Chronic respiratory failure with hypoxia Opiate overdose History of left heart catheterization (LHC) (~01/05/19) Type 2 diabetes mellitus Old myocardial infarction Essential hypertension Restrictive lung disease secondary to obesity Dyspnea on exertion Pulmonary embolism Hidradenitis Non-healing open wound of left groin Open wound of vulva with complication Necrotizing soft tissue infection Abscess of vulva Soft tissue abscess of inguinal region Respiratory failure with hypoxia Abscess Hyperglycemia due to type 2 diabetes mellitus NSTEMI (non-ST elevated myocardial infarction) Tobacco abuse Hyperlipidemia Morbid obesity History of MRSA infection Anxiety 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 Home Medications ?Medication ?Instructions ?Recorded ?Last Taken ?Type multivit-iron 18 mg-folic acid 400 1 ea PO DAILY supplement 03/26/17 07/14/23 History mcg-calcium 500 mg-minerals tablet omeprazole 40 mg capsule,delayed 40 mg PO DAILY GERD 12/15/18 07/14/23 History release loratadine 10 mg tablet 10 mg PO DAILY PRN Allergies 03/01/20 07/14/23 History apixaban 5 mg tablet 5 mg PO BID blood thinner 08/20/20 07/14/23 History diltiazem HCl 120 mg 120 mg PO DAILY heart rate 08/20/20 07/14/23 History capsule,extended release 24 hr lisinopril 10 mg tablet 10 mg PO DAILY blood pressure 03/26/21 07/14/23 History metformin 500 mg tablet,extended 1,000 mg PO DAILY diabetes 03/26/21 07/14/23 History release 24 hr metoprolol succinate 25 mg 25 mg PO DAILY blood pressure 03/26/21 07/14/23 History tablet,extended release 24 hr atorvastatin 80 mg tablet 80 mg PO QHS cholesterol 02/07/22 07/14/23 History furosemide 40 mg tablet 80 mg PO DAILY diuretic 09/22/22 07/14/23 History albuterol sulfate 2.5 mg/3 mL 2.5 mg inhalation Q4H PRN SOB 12/09/22 07/10/23 History (0.083 %) solution for nebulization fenofibrate nanocrystallized 145 145 mg PO DAILY CHOLESTEROL 12/09/22 07/14/23 History mg tablet insulin glargine U-300 conc 300 104 unit subcut BID diabetes 07/14/23 07/13/23 History unit/mL (3 mL) subcutaneous pen (Toujeo Max U-300 SoloStar) potassium chloride 20 mEq See Rx Instructions .Route 08/05/24 Unknown Rx tablet,extended release(part/cryst) .COMPLEX #60 TABLETS duloxetine 60 mg capsule,delayed 60 mg PO DAILY 11/09/24 Unknown History release ergocalciferol (vitamin D2) 1,250 1,250 mcg PO QWEEK vitamin 11/09/24 Unknown History mcg (50,000 unit) capsule (Vitamin D2) ferrous sulfate 325 mg (65 mg 325 mg PO DAILY supplement 11/09/24 Unknown History iron) tablet (FeroSul) lorazepam 1 mg tablet 1 mg PO TID anxiety 11/09/24 Unknown History methocarbamol 750 mg tablet 1,500 mg PO TID muscle spasm 08/16/25 Unknown History oxycodone 15 mg tablet 15 mg PO Q6H PRN PRN pain 08/16/25 Unknown History pregabalin 150 mg capsule 150 mg PO TID pain 08/16/25 Unknown History semaglutide 2 mg/dose (8 mg/3 mL) 2 mg subcut QWEEK 08/16/25 Unknown History subcutaneous pen injector (Ozempic) diazepam 5 mg tablet (Valium) 5 mg PO TID PRN muscle spasm 5 10/28/25 Unknown Rx days #15 tabs insulin lispro 100 unit/mL 20 unit subcut TID 10/28/25 Unknown History subcutaneous pen (Humalog KwikPen (U-100) Insulin) Allergy/AdvReac Type Severity Reaction Status Date / Time cyclobenzaprine HCl (From Allergy Hives Verified 10/31/25 20:29 Flexeril) venlafaxine (From Effexor) AdvReac Severe hives Verified 10/31/25 20:29 Family History Father CVA (cerebral vascular accident) Heart disease Diabetes Mother Thyroid disorder Surgical History History of delivery H/O arthroscopic knee surgery History of cholecystectomy Social History household members: none Smoking Status: Current every day smoker tobacco type: e-cigarettes how long ago did patient quit smokin PPD smoker, quit x 1 year approximately. second hand exposure: Yes alcohol intake: never substance use type: does not use caffeine: Yes Type: carbonated beverages Number of servings: 1 and coffee Number of servings: 1 ROS Review of Systems ROS Unobtainable: due to encephalopathy Vital Signs Vital Signs Vital Signs: 10/31/25 20:25 10/31/25 20:37 10/31/25 20:43 Temperature 98.7 F 98.7 F Temperature Source Oral Oral Pulse Rate 119 H 120 H Respiratory Rate 25 H 25 H Respiratory Pattern Blood Pressure 138/74 H 138/74 H Blood Pressure Mean 95 95 Pulse Ox 96 100 84 Oxygen Delivery Method Non-Rebreather Nasal Cannula Nasal Cannula Oxygen Flow Rate (L/min) 15 6 6 Fraction of Inspired Oxygen (FIO2) 10/31/25 20:43 10/31/25 20:56 10/31/25 21:01 Temperature Temperature Source Pulse Rate Respiratory Rate Respiratory Pattern Tachypnea Blood Pressure Blood Pressure Mean Pulse Ox 95 Oxygen Delivery Method Non-Rebreather Non-Rebreather Oxygen Flow Rate (L/min) 10 Fraction of Inspired Oxygen (FIO2) 10/31/25 21:10 10/31/25 21:12 10/31/25 21:28 Temperature 103.7 F H Temperature Source Core Pulse Rate 130 H 131 H 125 H Respiratory Rate 15 15 16 Respiratory Pattern Blood Pressure 178/73 H 174/55 H Blood Pressure Mean 108 94 Pulse Ox 95 95 96 Oxygen Delivery Method Mechanical Ventilator Mechanical Ventilator Oxygen Flow Rate (L/min) Fraction of Inspired Oxygen (FIO2) 100 10/31/25 21:37 10/31/25 22:00 10/31/25 22:38 Temperature 104.2 F H 104.2 F H 103.6 F H Temperature Source Core Core Core Pulse Rate 123 H 99 106 H Respiratory Rate 16 14 15 Respiratory Pattern Blood Pressure 170/58 H 98/41 L 114/56 L Blood Pressure Mean 95 60 75 Pulse Ox 92 95 95 Oxygen Delivery Method Mechanical Ventilator Mechanical Ventilator Mechanical Ventilator Oxygen Flow Rate (L/min) Fraction of Inspired Oxygen (FIO2) 10/31/25 22:42 10/31/25 23:09 10/31/25 23:30 Temperature 103.6 F H 102.8 F H 102.2 F H Temperature Source Core Core Pulse Rate 108 H 106 H 106 H Respiratory Rate 15 15 15 Respiratory Pattern Blood Pressure 119/55 L 123/61 H 120/57 L Blood Pressure Mean 76 81 78 Pulse Ox 97 97 94 Oxygen Delivery Method Mechanical Ventilator Mechanical Ventilator Oxygen Flow Rate (L/min) Fraction of Inspired Oxygen (FIO2) Weight Weight: 429 lb 10.895 oz Body Mass Index (BMI) 71.4 Physical Exam Const Constitutional Narrative: Sedated and intubated HEENT normocephalic and head/scalp atraumatic Eyes Pupil: sluggish Neck no lymphadenopathy Lymph Lymphatic: no lymphadenopathy noted Resp Effort and Inspection: respiratory distress Auscultation: rhonchi Cardio regular rate, regular rhythm, S1 normal heart sound and S2 normal heart sound GI normal to inspection, nondistended, normoactive bowel sounds Extremity normal capillary refill Skin General Skin Exam: no breakdown Neuro Neuro Narrative: Patient is on propofol drip unable to assess Psych Psych Narrative: Unable to assess Results Lab / Micro Data 10/31/25 20:58 10/31/25 20:58 Labs: Laboratory Results - last 24 hr 10/31/25 20:58: WBC 16.9 H, RBC 3.87 L, Hgb 10.6 L, Hct 35.2 L, MCV 91.0, MCH 27.4, MCHC 30.1 L, RDW Std Deviation 44.9 H, RDW Coeff of Darrion 13.6, Plt Count 233, MPV 9.9, Immature Gran % (Auto) 0.900, Neut % (Auto) 81.9 H, Lymph % (Auto) 10.0 L, [place] % (Auto) 6.1, Eos % (Auto) 0.6, Baso % (Auto) 0.5, Absolute Neuts (auto) 13.9 H, Absolute Lymphs (auto) 1.69, Nucleated RBC % 0.1, PT 15.3 H, INR 1.2, APTT 34.0, Sodium 139, Potassium 4.4, Chloride 96 L, Carbon Dioxide 29.9, Anion Gap 12, BUN 26 H, Creatinine 0.91, Estim Creat Clear Calc 133.87, Est GFR (MDRD) Non-Af 77, BUN/Creatinine Ratio 28.6 H, Glucose 146 H, Lactic Acid < 1.0, Calcium 8.1, Total Bilirubin 0.45, AST 31, ALT 28, Alkaline Phosphatase 64, Total Creatine Kinase 149, Troponin T High Sens 39 H D, Total Protein 7.4, Albumin 3.9, Globulin 3.5, Albumin/Globulin Ratio 1.1, Triglycerides 129 10/31/25 21:33: Urine Color Yellow, Urine Clarity Cloudy, Urine pH 6.0, Ur Specific Madeline 1.015, Urine Protein 100 H, Urine Glucose (UA) 100 H, Urine Ketones Negative, Urine Occult Blood 150 H, Urine Nitrite Positive H, Urine Bilirubin Negative, Urine Urobilinogen 1 H, Ur Leukocyte Esterase 500 H, Urine RBC 0-5 SEEN, Urine WBC >100 SEEN, Ur Squamous Epith Cells 0-5 SEEN, Urine Bacteria 3+, Urine Mucus 0 SEEN 10/31/25 22:53: Troponin T Hi Sens 2 Hr 53 H ABG Data ABG results: ABG 10/31/25 20:47 Specimen Type ART Sample Site L Radial pH 7.39 Bicarbonate Actual 35.2 H Total CO2 37 Base Excess 10 H O2 Saturation 71 L O2 % 6.0 ABG pCO2 57.7 H ABG pO2 39 L* Meño Test Positive O2 Delivery Device Cannula Vent Mode Not entered Crit Call To/Read Back Yes Blood Gas Notified Whom [facility] Blood Gas Notified Time 20:48:31 Imaging Radiology Impression Chest X-Ray 10/31/25 21:45 IMPRESSION: 1. Endotracheal tube tip 2.5 cm above the anitra. 2. Enteric tube terminates appropriately within the stomach. 3. Cardiomegaly with slightly increased vascular congestion and edema. 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 Patient is reportedly noncompliant with therapy for obstructive sleep apnea at home. It is reportedly unknown how long the patient was unresponsive at home when found by family member. Repeat chest x-ray in a.m. doxycycline and Rocephin were initiated in the emergency room setting for broad-spectrum coverage and coverage for her UTI as well. Azithromycin nor levofloxacin were not used due to possible QT prolongation with propofol 2. Acute hypotension?responsive to IV fluid bolus will continue IV fluids and repeat CBC BMP in the morning 3. Urinary tract infection?continue Rocephin initiated in the emergency room 4. Diabetes?continue glucose checks every 6 hours while intubated and covered with sliding scale insulin 5. DVT prophylaxis?low molecular weight heparin 6. CODE STATUS full verified by family member Charges/Coding Visit Charges Inpatient E&M: 38308 Init Hosp L3
[2025-11-01] VITALS (56 sets, daily range): BP systolic 76–170; BP diastolic 38–80; PULSE 67–100; RESP 14–27; TEMP 37.4–39.2; O2SAT 91–100; BMI 71.6; BMI 70.5
[2025-11-01] MEDS: fentaNYL 100 MCG/2 ML Ampul IV (00:01)
[2025-11-01] MEDS: fentaNYL drip 100 ML 2.5 MCG CONT INF (00:01)
--- OUTSIDE RECORDS SUMMARY | 2025-11-01 00:10 | XMS RPT_ITS | CCD ---
Author Organization [facility] Care Team Providers Care Bail Agent Name Role Phone Panfilo Oreilly MD Primary Care Provider Shreya Mccray Unavailable [place] Dumont Unavailable Brandee Cotter ([facility]) Unavailable [place] Dumont Unavailable [facility], Robert Unavailable Dr. Tino Oreilly Primary Care Provider Dr. Thomas Garcia Emergency Provider Dr. Mihai Chu Admit Provider Dr. Mihai Chu Attending Provider Dr. Mihai Chu Other Provider Dr. Belem Aponte Attending Provider Dr. Belem Aponte Other Provider Dr. Cody Gonzalez Other Provider Dr. Tino Oreilly Referring Provider Dale QUALITY OFFICER, QUALITY OFFICER-C Nelly Attending Provider Dale QUALITY OFFICER, QUALITY OFFICER-C Nelly Referring Provider [phone] Dale QUALITY OFFICER, QUALITY OFFICER-C Nelly Other Provider Dr. Berlin Dumont Attending Provider Shreya Mccray MD Unavailable Panfilo Oreilly MD Primary Care Provider Shreya Mccray MD Unavailable [place] Dumont Unavailable Brandee Cotter (Bridge [employer]) Unavailable [place] Dumont Unavailable [facility], Robert Unavailable Panfilo Oreilly MD Primary Care Provider Shreya Mccray MD Unavailable [place] Dumont Unavailable Berlin Dumont Unavailable [facility], Robert Unavailable Dr. Tino Oreilly Primary Care Provider [phone] Dr. Rupert Pitts Emergency Provider Dr. Mihai Chu Admit Provider Dr. Mihai Chu Attending Provider Dr. Mihai Chu Other Provider Dr. Shelbi Eubanks Attending Provider Dr. Shelbi Eubanks Other Provider Panfilo Oreilly MD Primary Care Provider Shreya Mccray MD Unavailable [place] Dumont Unavailable Brandee Cotter (Bridge Inspector) Unavailable [place] Dumont Unavailable [facility], Robert Unavailable Dr. Tino Oreilly Primary Care Provider [phone] Dr. Rupert Pitts Emergency Provider Dr. Mihai Chu Admit Provider Dr. Mihai Chu Attending Provider Dr. Mihai Chu Other Provider Dr. Shelbi Eubanks Attending Provider Kayleneseattlezuri, Dr. Mario Other Provider PANFILO OREILLY Referring Unavailab PANFILO Hooker Primary Care Unavailab Dr. Irina Kee Emergency Provider Dr. Chris Gillit Provider Dr. Chris Gill Attending Provider Dr. Chris Gill Other Provider Dr. Liam Wilkes Attending Provider Dr. Liam Wilkes Other Provider Czarniecki [facility], Brissa Unavailable Keo RN, Mimi Unavailable Unavailable Keo RN, Mimi Unavailable Unavailable Elmer RN, Raquel Unavailable UnavailDr. Tino Huntley Primary Care Provider Dr. Irina Quintero Emergency Provider Dr. Chris Gill Admit Provider Dr. Chris Gill Attending Provider Dr. Chris Gill Other Provider Dr. Liam Wilkes Attending Provider Dr. Liam Wilkes Other Provider Jose SAUSAGE STRINGER.OIL TANK CAR CLEANER, Dianne Unavailable PANFILO OREILLY Primary Care Unavailab [...] PANFILO OREILLY Primary Care Unavailab wei [facility], Annie Unavailable Son VENTURA, Carlos Unavailable Panfilo Oreilly MD Unavailable Kendra VENTURA, Bharat Unavailable Jose DEMPSEY.OIL TANK CAR CLEANER, Dianne Unavailable Panfilo Oreilly MD Unavailable Dr. Tino Oreilly Primary Care Provider [phone] Dr. Irina Quintero Emergency Provider Dr. Chris [...] Jarrett Villalobos Other Provider Unavailab wei Hunter QUALITY OFFICER, QUALITY OFFICER-C Nelly Other Provider Dr. Ace Sanders Attending Provider Dr. Ling Neville Other Provider Dr. Ling Neville Attending Provider Panfilo Oreilly MD Unavailable Ling Neville MD Unavailable Kendra VENTURA, Bharat Unavailable [place] Dumont Unavailable Berlin Dumont Unavailable [facility], Robert Unavailable Panfilo Oreilly MD Unavailable Chris Gill Unavailable Kendra RN, Bharat Unavailable Chris Gill MD Unavailable Brandee Cotter ([facility]) Unavailable Kendra VENTURA, Bharat Unavailable Ling Neville [...] Provider Dr. Belem Aponte Attending Provider Dr. Bleem Aponte Other Provider Dr. Tino Oreilly Primary Care Provider Dr. Irina Quintero Emergency Provider Dr. Liam Wilkes Admit Provider Dr. Liam Wilkes Attending Provider Dr. Liam Wilkes Other Provider Dr. Belem Aponte Attending Provider Dr. Belem Aponte Other Provider [facility], Annie Unavailable Son RN, Carlos Unavailable Kendra RN, Bharat Unavailable Kendra RN, Bharat Unavailable Panfilo Oreilly MD Primary Care Provider [place] Dumont MD Unavailable Brandee Cotter CNP (Bridge Inspector) Unavailable [place] Dumont MD Unavailable [phone] Brandee Cotter CNP Unavailable DELMY SOLORZANO Primary Care Unavailable GOLNA, ACE Attending Unavailable SELF, REFERRAL Referring Unavailable GOLNA, ACE Primary Care Unavailable GOLNA, ACE Attending Unavailable GOLNA, ACE Primary Care Unavailable GOLNA, ACE Attending Unavailable GOLNA, ACE Primary Care Unavailable Delmy Solorzano MD Primary Care Provider [phone] Dr. Jozef Kaiser MD Emergency Provider Tg [...] Translations: [CYCLOBENZAPRINE HCL] Drug Allergy 7 Hives [facility] (20 sources) Sertraline; Translations: [SERTRALINE] Drug Allergy 1 Vomiting [facility] Work Phone: (20 sources) venlafaxine Drug Allergy 2 unknown, hives [facility] (1 source) cyclobenzaprine Drug Allergy 5 [facility] Repository (1 source) venlafaxine Drug Allergy 5 [facility] Repository Medications Current Medications Medication Drug [...] on above: Take 1 capsule by [facility] one time a week. For 12 [...] Comment on above: Take 1 capsule by [facility] once daily. doxycycline hyclate 100 mg oral capsule (8 sources) Tetracycline-class Drug Start: 08-19-2025 take 1 capsule by mouth twice daily Start: 11-12-2024 take 1 capsule by [facility] twice daily Start: 12-09-2022 take 100 mg [...] Comment on above: Take 1 tablet by [facility] once daily. ferrous sulfate 325 mg oral tablet (2 sources) Start: 11-09-2024 take 1 tablet by mouth once daily flash glucose scanning reader (Docurated BAO 14 DAY READER) (20 sources) Start: [...] End: 01-05-2023 flash glucose sensor (FREEST YLE BOA 14 DAY SENSOR) kit 1 Each once [...] Take 1 tablet by patricia once daily. Labvwjqq-Nepd-Sb-Calcium -Mins (20 sources) Start: 03-26-2017 Rqnvjfcb-Tqsp-Au -Calcium-Mins Active 1 EACH PO DAILY March 26, 2017 6:01pm Start: 03-26-2017 Multivit-Iron- Mo-Aabzbao-Rvsd Active 1 EACH PO DAILY March 25, 2017 11:00pm Start: 03-26-2017 Multivit-Iron- Ug-Qywhbsd-Iltz Active 1 EACH PO DAILY March 26, 2017 12:00am Qvvakuko-Qnum-Lj-Calcium-Min s 1 EACH tablet (2 sources) Start: 03-26-2017 take 1 tablet by mouth once daily Start: 03-26-2017 take 1 tablet by patricia once daily Yyzoesrd-Zpap-Vy-Calcium-Mins 1 EACH tab let Active 1 NMA [...] on above: Take 1 capsule by [facility] once daily. oxyCODONE hydrochloride 15 mg [...] Take 1 tablet by mouth once daily. D44-Fjzaxinxfns e Calcium-B6 (20 sources) Start: 10-07-2017 End: 03-01-2020 Y40-Fcgfcrykuqxl Calcium-B6 Discontinued 1 EACH PO DAILY October 08, 2017 12:16am March 01, 2020 10:33am Start: 10-07-2017 End: 03-01-2020 C28-Lekgibeqjquh Calcium-B6 Discontinued 1 EACH PO DAILY October 07, 2017 12:00am March 01, 2020 9:33am Start: 10-07-2017 End: 03-01-2020 V30-Bvhjcruqbyex Calcium-B6 Discontinued 1 EACH PO DAILY October 07, 2017 1:00am March 01, 2020 10:33am X87-Gjovefogeddq Calcium-B6 1 EACH tablet (2 sources) Start: 10-07-2017 End: 03-01-2020 take 1 tablet by mouth once daily R38-Bujiegvyxmlf Calcium-B6 1 EACH tablet Discontinued 1 NMA [...] Comment on above: Take 1 tablet by [facility] once daily. clindamycin 300 mg oral capsule (2 sources) Lincosamide Antibacterial Start: 02-19-20 End: 02-21-20 take 1 capsule by mouth four times daily clindamycin (CLEOCIN) 300 mg capsule Indications: Abscess of groin, left , Non-healing open wound of left groin, initial encounter Take 1 capsule by mouth four times daily. 40 capsule 0 02/18/2023 02/20/2023 Discontinued Start: 01-12-2023 take 1 capsule by [facility] four times daily Clindamycin Hcl (Cleocin Hcl) 300 mg capsule Active 300 MG PO 4 TIMES DAILY 40 January 12, 2023 12:00am Comment on above: Take 1 capsule by [facility] four times daily. Compression Socks, Medium (20 [...] 10-07-2017 docusate sodium 50 mg / sennosides, intermediate 8.6 mg oral tablet (20 sources) Start: [...] Patch as dir ected every 24 hours. Ephraim-3 Fatty Acids (20 sources) Start: 03-26-2017 End: 03-01-2020 take 1000 mg by mouth once daily Ephraim-3 Fatty Acids Discontinued 1000 MG PO DAILY March 26, 2017 6:01pm March 01, 2020 10:35am Start: 03-26-2017 End: 03-01-2020 take 1000 mg by mouth once daily Ephraim-3 Fatty Acids Discontinued 1000 MG PO DAILY March 25, 2017 11:00pm March 01, 2020 9:35am Start: 03-26-2017 End: 03-01-2020 take 1000 mg by mouth once daily Ephraim-3 Fatty Acids Discontinued 1000 MG PO DAILY March 26, 2017 12:00am March 01, 2020 10:35am Ephraim-3 Fatty Acids 1,000 MG capsule (2 sources) Start: 03-26-2017 End: 03-01-2020 take 1 capsule by mouth once daily Ephraim-3 Fatty Acids 1,000 MG capsule Discontinued 1000 [...] sources) Long-term current use of anticoagulant; Translations: [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 Normal [facility] Comment on above: Performed By: #### L 501.080 #### [facility] [address] [place], [address] Wound Cultureon 08-20-2025 WC Copy of report sent to Infection Control Printer [id number] 08/19/25 [id number] JENNIFER. Wound Culture Meth. resistant Staph. aureus [...] S Vancomycin Islt VIKTOR 0.5 S Normal [facility] Comment on above: Performed By: #### L 501.080 #### [facility] [address] [place], [place], [id number] Absolute lymphocyte countOrd ered By: Jersey Pradhan on 08-19-2025 Lymphocytes Auto (Unsp spec) [#/Vol] 1.98 10*3/uL 0.83-4.51 [facility] Absolute neutrophil countOrd ered By: Jersey Pradhan on 08-19-2025 Neutrophils (Bld) [#/Vol] 4.9 10*3/uL 2.0-7.7 [facility] Anion gap in Serum or Plasma Ordered By: Jersey Pradhan on 08-19-2025 Anion gap [Moles/Vol] 10 mmol/L 5-15 [facility] Automated lymphocyte count a s percentage of total leukocytesOrdered By: Jersey Pradhan on 08-19-2025 Lymphocytes/100 WBC Auto (Unsp spec) 25.6 % - [facility] BUN/creatinine ratioOrdered By: Jersey Pradhan on 08-19-2025 Urea nitrogen/Creatinine [Mass ratio] 26.4 mg/mg High - [facility] Basic Metabolic Profile (BMP )on 08-19-2025 BUN/CRE 26.4 RATIO High - [facility] Comment on above: Performed By: #### L 499.0043 #### [facility] [address] [place], [address] Calcium [Mass/Vol] 9.5 mg/dL Normal 7.6-11.0 [facility] Comment on above: Performed By: #### L 499.0043 #### [facility] [address] [place], [address] Chloride [Moles/Vol] 89 mmol/L Low 98-108 [facility] Comment on above: Performed By: #### L 499.0043 #### [facility] [address] [place], [address] CO2 [Moles/Vol] 35.7 mmol/L High 21.0-32.0 [facility] Comment on above: Performed By: #### L 499.0043 #### [facility] [address] [place], [address] Creatinine [Mass/Vol] 0.93 mg/dL Normal 0.70-1.20 [facility] Comment on above: Performed By: #### L 499.0043 #### [facility] [address] [place], [address] ECRCL 126.36 ml/min Normal 50-250 [facility] Comment on above: Performed By: #### L 499.0043 #### [facility] [address] [place], [address] GAP 10 Normal 5-15 [facility] Comment on above: Performed By: #### L 499.0043 #### [facility] [address] [place], [address] GFR/1.73 sq M.predicted among non-blacks MDRD (S/P/Bld) [Vol rate/Area] 76 mL/min/{1.73_m2} Normal >60 [facility] Comment on above: Result Comment: mL/m in/1.73m2 CKD-EPI Creatinine Equation (2020) Performed By: #### L 499.0043 #### [facility] [address] [place], [address] Glucose [Mass/Vol] 397 mg/dL High 70-99 [facility] Comment on above: Performed By: #### L 499.0043 #### [facility] [address] [place], [address] Potassium [Moles/Vol] 4.0 mmol/L Normal 3.3-5.1 [facility] Comment on above: Performed By: #### L 499.0043 #### [facility] [address] [place], [address] Sodium [Moles/Vol] 135 mmol/L Normal 133-145 [facility] Comment on above: Performed By: #### L 499.0043 #### [facility] [address] [place], [address] Urea nitrogen [Mass/Vol] 25 mg/dL High -19 [facility] Comment on above: Performed By: #### L 499.0043 #### [facility] [address] [place], [address] Basophil percentageOrdered B y: Jersey Pradhan on 08-19-2025 Basophils/100 WBC (Bld) 0.9 % 0-1 [facility] Bedside Glucoseon 08-19-2025 FINGERSTICK GLU 393 mg/dL High 74-106 [facility] Comment on above: Result Comment: CESAR OLEARY OF PATIENT CARE PER NURSING PROTOCOL Performed By: #### L 499.0043 #### [facility] [address] [place], [address] CBC W/Diff, Automatedon 08-01 Absolute Lymph 1.98 X10 3/uL Normal 0.83-4.51 [facility] Comment on above: Performed By: #### L 499.0043 #### [facility] [address] [place], [address] Absolute Neut 4.9 X10 3/uL Normal 2.0-7.7 [facility] Comment on above: Performed By: #### L 499.0043 #### [facility] [address] [place], [address] Basophils/100 WBC (Bld) 0.9 % Normal 0-1 [facility] Comment on above: Performed By: #### L 499.0043 #### [facility] [address] [place], [address] Eosinophils/100 WBC (Bld) 3.2 % Normal 0-5 [facility] Comment on above: Performed By: #### L 499.0043 #### [facility] [address] [place], [address] Erythrocyte distribution width (RBC) [Ratio] 13.2 % Normal 11.6-14.6 [facility] Comment on above: Performed By: #### L 499.0043 #### [facility] [address] [place], [address] Hematocrit (Bld) [Volume fraction] 32.7 % Low 37-47 [facility] Comment on above: Performed By: #### L 499.0043 #### [facility] [address] [place], [address] Hemoglobin (Bld) [Mass/Vol] 10.2 g/dL Low 12.0-15.0 [facility] Comment on above: Performed By: #### L 499.0043 #### [facility] [address] [place], [address] IG% 1.000 High 0.0-0.9 [facility] Comment on above: Result Comment: IG% - Immature Granulocytes (promyelocytes, myelocytes and metamyelocytes) > 1% indicates that a LEFT SHIFT is Present. Performed By: #### L 499.0043 #### [facility] [address] [place], [address] Lymphocytes/100 WBC (Bld) 25.6 % Normal 19-41 [facility] Comment on above: Performed By: #### L 499.0043 #### [facility] [address] [place], [address] MCH (RBC) [Entitic mass] 28.3 pg Normal 27.0-32.0 [facility] Comment on above: Performed By: #### L 499.0043 #### [facility] [address] [place], [address] MCHC (RBC) [Mass/Vol] 31.2 g/dL Low 32-36 [facility] Comment on above: Performed By: #### L 499.0043 #### [facility] [address] [place], [address] MCV (RBC) [Entitic vol] 90.8 fL Normal 81-99 [facility] Comment on above: Performed By: #### L 499.0043 #### [facility] [address] [place], [address] Monocytes/100 WBC (Bld) 6.0 % Normal 0-10 [facility] Comment on above: Performed By: #### L 499.0043 #### [facility] [address] [place], [address] Neutrophils/100 WBC (Bld) 63.3 % Normal 47-70 [facility] Comment on above: Performed By: #### L 499.0043 #### [facility] [address] [place], [address] Nucleated RBC (Bld) [#/Vol] 0 10*3/uL Normal 0-5 [facility] Comment on above: Performed By: #### L 499.0043 #### [facility] [address] [place], [address] Platelet mean volume (Bld) [Entitic vol] 10.0 fL Normal 6.2-12.0 [facility] Comment on above: Performed By: #### L 499.0043 #### [facility] [address] [place], [address] Platelets (Bld) [#/Vol] 277 10*3/uL Normal 150-450 [facility] Comment on above: Performed By: #### L 499.0043 #### [facility] [address] [place], [address] RBC (Bld) [#/Vol] 3.60 10*6/uL Low 4.2-5.4 [facility] Comment on above: Performed By: #### L 499.0043 #### [facility] [address] [place], [address] RDW SD 43.4 fl Normal 35.1-43.9 [facility] Comment on above: Performed By: #### L 499.0043 #### [facility] [address] [place], [address] WBC (Bld) [#/Vol] 7.7 10*3/uL Normal 4.4-11.0 [facility] Comment on above: Performed By: #### L 499.0043 #### [facility] [address] [place], [address] Carbon dioxide, total [Moles /volume] in Central venous bloodOrdered By: Jersey Pradhan on 08-19-2025 CO2 [Moles/Vol] 35.7 mmol/L High 21.0-32.0 [facility] Chloride assayOrdered By: Jonathan Pradhan on 08-19-2025 Chloride [Moles/Vol] 89 mmol/L Low 98-108 [facility] Eosinophil percentageOrdered By: Jersey Pradhan on 08-19-2025 Eosinophils/100 WBC (Bld) 3.2 % 0-5 [facility] Erythrocyte distribution wid th ratioOrdered By: Jersey Pradhan on 08-19-2025 Erythrocyte distribution width (RBC) [Ratio] 13.2 % 11.6-14.6 [facility] Erythrocyte distribution wid th standard deviationOrdered By: Jersey Pradhan on 08-19-2025 Erythrocyte distribution width (RBC) [Ratio] 43.4 fl 35.1-43.9 [facility] Glomerular filtration rate ( GFR) estimation/1.73 sq m using serum, plasma, or whole bOrdered By: Jersey Pradhan on 08-19-2025 GFR/1.73 sq M.predicted among non-blacks MDRD (S/P/Bld) [Vol rate/Area] 76 mL/min/{1.73_m2} >60 [facility] Comment on above: mL/min/1.73m2 CKD-EP I Creatinine Equation (2020) Glucose measurement at bedsi deOrdered By: Jersey Pradhan on 08-19-2025 Glucose [Mass/Vol] 371 mg/dL High 74-106 [facility] Comment on above: MANAGEMENT OF PATIEN T CARE PER NURSING PROTOCOL Hematocrit Auto (Bld) [Volum e fraction]Ordered By: Jersey Pradhan on 08-19-2025 Hematocrit (Bld) [Volume fraction] 32.7 % Low 37-47 [facility] Hemoglobin measurementOrdere d By: Jersey Pardhan on 08-19-2025 Hemoglobin (Bld) [Mass/Vol] 10.2 g/dL Low 12.0-15.0 [facility] Immature granulocytes/100 WB C Auto (Bld)Ordered By: Jersey Pradhan on 08-19-2025 Immature granulocytes/100 WBC (Bld) 1.000 % High 0.0-0.9 [facility] Comment on above: IG% - Immature Granu locytes (promyelocytes, myelocytes and metamyelocytes) > 1% indicates that a LEFT SHIFT is Present. MCV (mean corpuscular volume ) determinationOrdered By: Jersey Pradhan on 08-19-2025 MCV (RBC) [Entitic vol] 90.8 fL 81-99 [facility] Mean corpuscular hemoglobin (MCH) determinationOrdered By: Jersey Pradhan on 08-19-2025 MCH (RBC) [Entitic mass] 28.3 pg 27.0-32.0 [facility] Mean corpuscular hemoglobin concentration (MCHC) determinationOrdered By: Jersey Pradhan on 08-19-2025 MCHC (RBC) [Mass/Vol] 31.2 g/dL Low 32-36 [facility] Mean platelet volume determi nationOrdered By: Jersey Pradhan on 08-19-2025 Platelet mean volume (Bld) [Entitic vol] 10.0 fL 6.2-12.0 [facility] Monocyte percentageOrdered B y: Jersey Pradhan on 08-19-2025 Monocytes/100 WBC (Bld) 6.0 % 0-10 [facility] Neutrophil percentageOrdered By: Jersey Pradhan on 08-19-2025 Neutrophils/100 WBC (Bld) 63.3 % 47-70 [facility] Nucleated red blood cell per centageOrdered By: Jersey Pradhan on 08-19-2025 Nucleated RBC/100 WBC (Bld) [Ratio] 0 % 0-5 [facility] Platelet countOrdered By: Jonathan Pradhan on 08-19-2025 Platelets (Bld) [#/Vol] 277 10*3/uL 150-450 [facility] Potassium measurement (mass/ volume)Ordered By: Jersey Pradhan on 08-19-2025 Potassium (Unsp spec) [Mass/Vol] 4.0 mmol/L 3.3-5.1 [facility] RBC Auto (Bld) [#/Vol]Ordere d By: Jersey Pradhan on 08-19-2025 RBC (Bld) [#/Vol] 3.60 10*6/uL Low 4.2-5.4 [facility] Serum creatinine measurement (mass/volume)Ordered By: Jersey Pradhan on 08-19-2025 Creatinine [Mass/Vol] 0.93 mg/dL 0.70-1.20 [facility] Serum glucose measurement (m ass/volume)Ordered By: Jersey Pradhan on 08-19-2025 Glucose [Mass/Vol] 397 mg/dL High 70-99 [facility] Serum or plasma calcium yunior urement (mass/volume)Ordered By: Jersey Pradhan on 08-19-2025 Calcium [Mass/Vol] 9.5 mg/dL 7.6-11.0 [facility] Serum or plasma urea nitroge n measurement (mass/volume)Ordered By: Jersey Pradhan on 08-19-2025 Urea nitrogen [Mass/Vol] 25 mg/dL High 4-19 [facility] Sodium levelOrdered By: Ceferino Pradhan on 08-19-2025 Sodium [Moles/Vol] 135 mmol/L 133-145 [facility] Trough vancomycin levelOrder ed By: Olamide Mas on 08-19-2025 Vancomycin trough [Mass/Vol] 19.6 ug/mL High 5.0-15.0 [facility] Comment on above: Recommended goal tro [...] therapy recommended for serious lifethreatening infections include:- Pedcmlkakm-Vydrgwqlkjny-Lbvwtkttj (Ventilator/Healtcare Associated)-Sepsis PLEASE CONTACT PHARMACY SERVICES (#[id number]) FOR INTERPRETATIONOF RESULTS. Vancomycin, Trough Levelon 0 08-19-2025 VANCO, TROUGH 19.6 ug/mL High 5.0-15.0 [facility] Comment on above: Order Comment: Comme nts: Trough to be drawn 30 mins prior to scheduled [id number] Result Comment: [place] mmended goal trough ranges [...] (Ventilator/Healtcare Associated) -Sepsis PLEASE CONTACT PHARMACY SERVICES (#[id number]) FOR INTERPRETATION OF RESULTS. Performed By: #### L [id number] #### [facility] [address] [place], [address] White blood cell (WBC) count Ordered By: Jersey Pradhan on 08-19-2025 WBC (Bld) [#/Vol] 7.7 10*3/uL 4.4-11.0 [facility] Basic Metabolic Profile (BMP )on 08-18-2025 BUN/CRE 26.4 RATIO High 10-20 [facility] Comment on above: Performed By: #### L 501.080 #### [facility] [address] [place], [address] Calcium [Mass/Vol] 8.3 mg/dL Normal 7.6-11.0 [facility] Comment on above: Performed By: #### L 501.080 #### [facility] [address] [place], [address] Chloride [Moles/Vol] 93 mmol/L Low 98-108 [facility] Comment on above: Performed By: #### L 501.080 #### [facility] [address] [place], [address] CO2 [Moles/Vol] 35.0 mmol/L High 21.0-32.0 [facility] Comment on above: Performed By: #### L 501.080 #### [facility] [address] [place], [address] Creatinine [Mass/Vol] 0.92 mg/dL Normal 0.70-1.20 [facility] Comment on above: Performed By: #### L 501.080 #### [facility] [address] [place], [address] ECRCL 127.12 ml/min Normal 50-250 [facility] Comment on above: Performed By: #### L 501.080 #### [facility] [address] [place], [address] GAP 11 Normal 5-15 [facility] Comment on above: Performed By: #### L 501.080 #### [facility] [address] [place], [address] GFR/1.73 sq M.predicted among non-blacks MDRD (S/P/Bld) [Vol rate/Area] 76 mL/min/{1.73_m2} Normal >60 [facility] Comment on above: Result Comment: mL/m in/1.73m2 CKD-EPI Creatinine Equation (2020) Performed By: #### L 501.080 #### [facility] [facility] [address] [place], [address] Glucose [Mass/Vol] 288 mg/dL High 70-99 [facility] Comment on above: Performed By: #### L 501.080 #### [facility] [address] [place], [address] Potassium [Moles/Vol] 3.8 mmol/L Normal 3.3-5.1 [facility] Comment on above: Performed By: #### L 501.080 #### [facility] [address] [place], [address] Sodium [Moles/Vol] 139 mmol/L Normal 133-145 [facility] Comment on above: Performed By: #### L 501.080 #### [facility] [address] [place], [address] Urea nitrogen [Mass/Vol] 24 mg/dL High 4-19 [facility] Comment on above: Performed By: #### L 501.080 #### [facility] [address] [place], [address] Bedside Glucoseon 08-18-2025 FINGERSTICK GLU 458 mg/dL Invalid Interpretation Code 74-106 [facility] Comment on above: Result Comment: Dr Pedro watts Followed MANAGEMENT OF PATIENT CARE PER NURSING PROTOCOL Performed By: #### L 501.080 #### [facility] [address] [place], [address] FINGERSTICK GLU 460 mg/dL Invalid Interpretation Code 74-106 [facility] Comment on above: Result Comment: Dr Pedro watts Followed MANAGEMENT OF PATIENT CARE PER NURSING PROTOCOL Performed By: #### L 501.080 #### [facility] [address] [place], [address] FINGERSTICK GLU 456 mg/dL Invalid Interpretation Code 74-106 [facility] Comment on above: Result Comment: Dr Pedro watts Followed MANAGEMENT OF PATIENT CARE PER NURSING PROTOCOL Performed By: #### L 501.080 #### [facility] [address] [place], [address] FINGERSTICK GLU 341 mg/dL High 74-106 [facility] Comment on above: Result Comment: CESAR GEMENT OF PATIENT CARE PER NURSING PROTOCOL Performed By: #### L 501.080 #### [facility] [address] [place], [address] FINGERSTICK GLU 279 mg/dL High -106 [facility] Comment on above: Result Comment: CESAR GEMENT OF PATIENT CARE PER NURSING PROTOCOL Performed By: #### L 509.7001 #### [facility] [address] [place], [address] CBC W/Diff, Automatedon 09-12 08-2024 Absolute Lymph 1.89 X10 3/uL Normal 0.83-4.51 [facility] Comment on above: Performed By: #### L 501.080 #### [facility] [address] [place], [address] Absolute Neut 4.6 X10 3/uL Normal 2.0-7.7 [facility] Comment on above: Performed By: #### L 501.080 #### [facility] [address] [place], [address] Basophils/100 WBC (Bld) 1.0 % Normal 0-1 [facility] Comment on above: Performed By: #### L 501.080 #### [facility] [address] [place], [address] Eosinophils/100 WBC (Bld) 3.2 % Normal 0-5 [facility] Comment on above: Performed By: #### L 501.080 #### [facility] [address] [place], [address] Erythrocyte distribution width (RBC) [Ratio] 13.5 % Normal 11.6-14.6 [facility] Comment on above: Performed By: #### L 501.080 #### [facility] [address] [place], [address] Hematocrit (Bld) [Volume fraction] 29.6 % Low 37-47 [facility] Comment on above: Performed By: #### L 501.080 #### [facility] [address] [place], [address] Hemoglobin (Bld) [Mass/Vol] 9.2 g/dL Low 12.0-15.0 [facility] Comment on above: Performed By: #### L 501.080 #### [facility] [address] [place], [address] IG% 0.400 Normal 0.0-0.9 [facility] Comment on above: Result Comment: IG% - Immature Granulocytes (promyelocytes, myelocytes and metamyelocytes) > 1% indicates that a LEFT SHIFT is Present. Performed By: #### L 501.080 #### [facility] [address] [place], [address] Lymphocytes/100 WBC (Bld) 26.4 % Normal 19-41 [facility] Comment on above: Performed By: #### L 501.080 #### [facility] [address] [place], [address] MCH (RBC) [Entitic mass] 28.6 pg Normal 27.0-32.0 [facility] Comment on above: Performed By: #### L 501.080 #### [facility] [address] [place], [address] MCHC (RBC) [Mass/Vol] 31.1 g/dL Low 32-36 [facility] Comment on above: Performed By: #### L 501.080 #### [facility] [address] [place], [address] MCV (RBC) [Entitic vol] 91.9 fL Normal 81-99 [facility] Comment on above: Performed By: #### L 501.080 #### [facility] [address] [place], [address] Monocytes/100 WBC (Bld) 5.0 % Normal 0-10 [facility] Comment on above: Performed By: #### L 501.080 #### [facility] [address] [place], [address] Neutrophils/100 WBC (Bld) 64.0 % Normal 47-70 [facility] Comment on above: Performed By: #### L 501.080 #### [facility] [address] [place], [address] Nucleated RBC (Bld) [#/Vol] 0 10*3/uL Normal 0-5 [facility] Comment on above: Performed By: #### L 501.080 #### [facility] [address] [place], [address] Platelet mean volume (Bld) [Entitic vol] 9.9 fL Normal 6.2-12.0 [facility] Comment on above: Performed By: #### L 501.080 #### [facility] [address] [place], [address] Platelets (Bld) [#/Vol] 251 10*3/uL Normal 150-450 [facility] Comment on above: Performed By: #### L 501.080 #### [facility] [address] [place], [address] RBC (Bld) [#/Vol] 3.22 10*6/uL Low 4.2-5.4 [facility] Comment on above: Performed By: #### L 501.080 #### [facility] [address] [place], [address] RDW SD 45.6 fl High 35.1-43.9 [facility] Comment on above: Performed By: #### L 501.080 #### [facility] [address] [place], [address] WBC (Bld) [#/Vol] 7.2 10*3/uL Normal 4.4-11.0 [facility] Comment on above: Performed By: #### L 501.080 #### [facility] [address] [place], [address] Magnesiumon 08-18-2025 Magnesium [Mass/Vol] 1.7 mg/dL Normal 1.5-2.2 [facility] Comment on above: Performed By: #### L 501.080 #### [facility] [address] [place], [address] Magnesium measurement (mass/ volume)Ordered By: Jersey Pradhan on 08-18-2025 Magnesium (Unsp spec) [Mass/Vol] 1.7 mg/dL 1.5-2.2 [facility] Phosphoruson 08-18-2025 Phosphate [Mass/Vol] 3.1 mg/dL Normal 2.7-4.5 [facility] Comment on above: Performed By: #### L 501.080 #### [facility] [address] [place], [address] Serum or plasma vancomycin m easurement (mass/volume)Ordered By: Olamide Mas on 08-18-2025 Vancomycin [Mass/Vol] 12.9 ug/mL 0.0-15.0 [facility] Comment on above: VANCOMYCIN STANDARD DRUG THERAPY: CRITICAL VALUE IS > 15.0 mg/L VANCOMYCIN HIGH INTENSITY THERAPY: CRITICAL VALUE IS > 20.0 mg/L PLEASE CONTACT PHARMACY SERVICES (#[id number]) FOR INTERPRETATIONOF RESULTS. THIS RESULT DOES NOT REPRESENT A PEAK OR TROUGHLEVEL FOR THIS DRUG. Vancomycin, Random Levelon 0 08-18-2025 VANCO, RANDOM 12.9 ug/mL Normal 0.0-15.0 [facility] Comment on above: Result Comment: VANC OMYCIN STANDARD DRUG THERAPY: CRITICAL VALUE IS > 15.0 mg/L VANCOMYCIN HIGH INTENSITY THERAPY: CRITICAL VALUE IS > 20.0 mg/L PLEASE CONTACT PHARMACY SERVICES (#[id number]) FOR INTERPRETATION OF RESULTS. THIS RESULT DOES NOT REPRESENT A PEAK OR TROUGH LEVEL FOR THIS DRUG. Performed By: #### L 499.0043 #### [facility] [address] [place], [address] Bedside Glucoseon 08-17-2025 FINGERSTICK GLU 337 mg/dL High [address] [place] [address] Comment on above: Result Comment: CESAR GEMENT OF PATIENT CARE PER NURSING PROTOCOL Performed By: #### L 501.080 #### [facility] [address] [place], [address] FINGERSTICK GLU 383 mg/dL [address] Comment on above: Result Comment: CESAR GEMENT OF PATIENT CARE PER NURSING PROTOCOL Performed By: #### L 501.080 #### [facility] [address] [place], [address] FINGERSTICK GLU 301 mg/dL [address] Comment on above: Result Comment: CESAR GEMENT OF PATIENT CARE PER NURSING PROTOCOL Performed By: #### L 501.080 #### [facility] [address] [place], [address] FINGERSTICK GLU 305 mg/dL [address] Comment on above: Result Comment: CESAR GEMENT OF PATIENT CARE PER NURSING PROTOCOL Performed By: #### L 499.0043 #### [facility] [address] [place], [address] FINGERSTICK GLU 382 mg/dL High 74-106 [facility] Comment on above: Result Comment: CESAR GEMENT OF PATIENT CARE PER NURSING PROTOCOL Performed By: #### L 501.080 #### [facility] [address] [place], [address] FINGERSTICK GLU 395 mg/dL High 74-106 [facility] Comment on above: Result Comment: CESAR GEMENT OF PATIENT CARE PER NURSING PROTOCOL Performed By: #### L 501.080 #### [facility] [address] [place], [address] Bilirubin, totalOrdered By: Olamide Mas on 08-17-2025 Bilirubin [Mass/Vol] 0.19 mg/dL 0.00-1.30 [facility] CBC W/Diff, Automatedon 08-01 Absolute Lymph 1.89 X10 3/uL Normal 0.83-4.51 [facility] Comment on above: Order Comment: RESUL T(S) PREVIOUSLY REPORTED ON MANUAL REQUISITION DURINGDOWNTIME. Performed By: #### L 501.080 #### [facility] [address] [place], [address] Absolute Neut 6.1 X10 3/uL Normal 2.0-7.7 [facility] Comment on above: Order Comment: RESUL T(S) PREVIOUSLY REPORTED ON MANUAL REQUISITION DURINGDOWNTIME. Performed By: #### L 501.080 #### [facility] [address] [place], [address] Basophils/100 WBC (Bld) 1.0 % Normal 0-1 [facility] Comment on above: Order Comment: RESUL T(S) PREVIOUSLY REPORTED ON MANUAL REQUISITION DURINGDOWNTIME. Performed By: #### L 501.080 #### [facility] [address] [place], [address] Eosinophils/100 WBC (Bld) 2.5 % Normal 0-5 [facility] Comment on above: Order Comment: RESUL T(S) PREVIOUSLY REPORTED ON MANUAL REQUISITION DURINGDOWNTIME. Performed By: #### L 501.080 #### [facility] [address] [place], [address] IG% 0.500 Normal 0.0-0.9 [facility] Comment on above: Order Comment: RESUL T(S) PREVIOUSLY REPORTED ON MANUAL REQUISITION DURINGDOWNTIME. Result Comment: IG% - Immature Granulocytes (promyelocytes, myelocytes and metamyelocytes) > 1% indicates that a LEFT SHIFT is Present. Performed By: #### L 501.080 #### [facility] [address] [place], [address] Lymphocytes/100 WBC (Bld) 21.7 % Normal 19-41 [facility] Comment on above: Order Comment: RESUL T(S) PREVIOUSLY REPORTED ON MANUAL REQUISITION DURINGDOWNTIME. Performed By: #### L 501.080 #### [facility] [address] [place], [address] Monocytes/100 WBC (Bld) 4.7 % Normal 0-10 [facility] Comment on above: Order Comment: RESUL T(S) PREVIOUSLY REPORTED ON MANUAL REQUISITION DURINGDOWNTIME. Performed By: #### L 501.080 #### [facility] [address] [place], [address] Neutrophils/100 WBC (Bld) 69.6 % Normal 47-70 [facility] Comment on above: Order Comment: RESUL T(S) PREVIOUSLY REPORTED ON MANUAL REQUISITION DURINGDOWNTIME. Performed By: #### L 501.080 #### [facility] [address] [place], [address] Platelet mean volume (Bld) [Entitic vol] 10.1 fL Normal 6.2-12.0 [facility] Comment on above: Order Comment: RESUL T(S) PREVIOUSLY REPORTED ON MANUAL REQUISITION DURINGDOWNTIME. Performed By: #### L 501.080 #### [facility] [address] [place], [address] Erythrocyte distribution width (RBC) [Ratio] 13.7 % Normal 11.6-14.6 [facility] Comment on above: Order Comment: RESUL T(S) PREVIOUSLY REPORTED ON MANUAL REQUISITION DURINGDOWNTIME. Performed By: #### L 501.080 #### [facility] [address] [place], [address] Hematocrit (Bld) [Volume fraction] 30.2 % Low 37-47 [facility] Comment on above: Order Comment: RESUL T(S) PREVIOUSLY REPORTED ON MANUAL REQUISITION DURINGDOWNTIME. Performed By: #### L 501.080 #### [facility] [address] [place], [address] Hemoglobin (Bld) [Mass/Vol] 9.3 g/dL Low 12.0-15.0 [facility] Comment on above: Order Comment: RESUL T(S) PREVIOUSLY REPORTED ON MANUAL REQUISITION DURINGDOWNTIME. Performed By: #### L 501.080 #### [facility] [address] [place], [address] MCH (RBC) [Entitic mass] 28.3 pg Normal 27.0-32.0 [facility] Comment on above: Order Comment: RESUL T(S) PREVIOUSLY REPORTED ON MANUAL REQUISITION DURINGDOWNTIME. Performed By: #### L 501.080 #### [facility] [address] [place], [address] MCHC (RBC) [Mass/Vol] 30.8 g/dL Low 32-36 [facility] Comment on above: Order Comment: RESUL T(S) PREVIOUSLY REPORTED ON MANUAL REQUISITION DURINGDOWNTIME. Performed By: #### L 501.080 #### [facility] [address] [place], [address] MCV (RBC) [Entitic vol] 91.8 fL Normal 81-99 [facility] Comment on above: Order Comment: RESUL T(S) PREVIOUSLY REPORTED ON MANUAL REQUISITION DURINGDOWNTIME. Performed By: #### L 501.080 #### [facility] [address] [place], [address] Platelets (Bld) [#/Vol] 221 10*3/uL Normal 150-450 [facility] Comment on above: Order Comment: RESUL T(S) PREVIOUSLY REPORTED ON MANUAL REQUISITION DURINGDOWNTIME. Performed By: #### L 501.080 #### [facility] [address] [place], [address] RBC (Bld) [#/Vol] 3.29 10*6/uL Low 4.2-5.4 [facility] Comment on above: Order Comment: RESUL T(S) PREVIOUSLY REPORTED ON MANUAL REQUISITION DURINGDOWNTIME. Performed By: #### L 501.080 #### [facility] [address] [place], [address] RDW SD 46.1 fl High 35.1-43.9 [facility] Comment on above: Order Comment: RESUL T(S) PREVIOUSLY REPORTED ON MANUAL REQUISITION DURINGDOWNTIME. Performed By: #### L 501.080 #### [facility] [address] [place], [address] WBC (Bld) [#/Vol] 8.7 10*3/uL Normal 4.4-11.0 [facility] Comment on above: Order Comment: RESUL T(S) PREVIOUSLY REPORTED ON MANUAL REQUISITION DURINGDOWNTIME. Performed By: #### L 501.080 #### [facility] [address] [place], [address] Calculated very low density lipoprotein (VLDL) cholesterol measurementOrdered By: Olamide Mas on 08-17-2025 Calculated very low density lipoprotein (VLDL) cholesterol measurement 44 mg/dL High 5-40 [facility] Comprehensive Metabolic Prof ilon 08-17-2025 Albumin [Mass/Vol] 3.5 g/dL Normal 3.5-5.0 [facility] Comment on above: Performed By: #### L 501.080 #### [facility] [address] [place], [address] Albumin/Globulin [Mass ratio] 1.1 {ratio} Normal 0.9-2.4 [facility] Comment on above: Performed By: #### L 501.080 #### [facility] [address] [place], [address] ALK PHOS 76 U/L Normal 35-104 [facility] Comment on above: Performed By: #### L 501.080 #### [facility] [address] [place], [address] ALT [Catalytic activity/Vol] 20 U/L Normal <=34 [facility] Comment on above: Performed By: #### L 501.080 #### [facility] [address] [place], [address] AST [Catalytic activity/Vol] 19 U/L Normal <=31 [facility] Comment on above: Performed By: #### L 501.080 #### [facility] [address] [place], [address] Bilirubin [Mass/Vol] 0.19 mg/dL Normal 0.00-1.30 [facility] Comment on above: Performed By: #### L 501.080 #### [facility] [address] [place], [address] BUN/CRE 29.9 RATIO High 10-20 [facility] Comment on above: Performed By: #### L 501.080 #### [facility] [address] [place], [address] Calcium [Mass/Vol] 8.1 mg/dL Normal 7.6-11.0 [facility] Comment on above: Performed By: #### L 501.080 #### [facility] [address] [place], [address] Chloride [Moles/Vol] 92 mmol/L Low 98-108 [facility] Comment on above: Performed By: #### L 501.080 #### [facility] [address] [place], [address] CO2 [Moles/Vol] 28.0 mmol/L Normal 21.0-32.0 [facility] Comment on above: Performed By: #### L 501.080 #### [facility] [address] [place], [address] Creatinine [Mass/Vol] 1.03 mg/dL Normal 0.70-1.20 [facility] Comment on above: Performed By: #### L 501.080 #### [facility] [address] [place], [address] ECRCL 113.55 ml/min Normal 50-250 [facility] Comment on above: Performed By: #### L 501.080 #### [facility] [address] [place], [address] GAP 15 Normal 5-15 [facility] Comment on above: Performed By: #### L 501.080 #### [facility] [address] [place], [address] GFR/1.73 sq M.predicted among non-blacks MDRD (S/P/Bld) [Vol rate/Area] 67 mL/min/{1.73_m2} Normal >60 [facility] Comment on above: Result Comment: mL/m in/1.73m2 CKD-EPI Creatinine Equation (2020) Performed By: #### L 501.080 #### [facility] [address] [place], [address] Globulin (S) [Mass/Vol] 3.2 g/dL Normal 2.2-4.2 [facility] Comment on above: Performed By: #### L 501.080 #### [facility] [address] [place], [address] Glucose [Mass/Vol] 383 mg/dL High 70-99 [facility] Comment on above: Performed By: #### L 501.080 #### [facility] [address] [place], [address] Potassium [Moles/Vol] 3.9 mmol/L Normal 3.3-5.1 [facility] Comment on above: Performed By: #### L 501.080 #### [facility] [address] [place], [address] Sodium [Moles/Vol] 135 mmol/L Normal 133-145 [facility] Comment on above: Performed By: #### L 501.080 #### [facility] [address] [place], [address] T PROT 6.7 g/dL Normal 5.9-8.4 [facility] Comment on above: Performed By: #### L 501.080 #### [facility] [address] [place], [address] Urea nitrogen [Mass/Vol] 31 mg/dL High 4-19 [facility] Comment on above: Performed By: #### L 501.080 #### [facility] [address] [place], [address] Electrocardiogram reportOrde red By: Audi Gamino on 08-17-2025 EKG study [facility] [address] [place] [address] 12 Lead EKG 08/16/25 1905 MR#: [id number] Acct: [id number] Name: MACARIO WALLACE Rep #:[id number] : 1975 50 From: Audi Gamino MD Attending Dr: Dr. Jersey Pradhan MD Status: ADM IN Ordering Dr: Jozef Kaiser MD Date: 08/16 Location: [facility] Sex: F C Admitted: 08/16/25 Test Reason : DYSRHYTHMIA Blood Pressure : */* mmHG Vent. Rate : 93 BPM Atrial Rate : 93 BPM P-R Int : 140 ms QRS Dur : 86 ms QT Int : 368 ms P-R-T Axes : 14 -2 65 degrees QTcB Int : 457 ms Normal sinus rhythm Normal ECG Confirmed by AUDI GAMINO MD ([id number]), legal editor RANDI BROWNLEE ([id number]) on 08/17/2025 9:41:15 AM Referred By: Confirmed By: AUDI GAMINO MD 08/17/25 0941 Date _ Audi Gamino MD CC: Dr. Delmy Solorzano MD; Dr. Jersey Pradhan MD; Dr. Jozef Kaiser MD ~ Signed [facility] Other Phone: Foot 2 Viewson 08-17-2025 Foot 2 Views [facility] Imaging Services [address] [place] [address] Foot 2 Views MR#: [id number] Acct: [id number] Name: MACARIO WALLACE Rep #: [id number] : 1975 F 50 From: Dylan summers MD PCP: Dr. Delmy Solorzano MD Status: ADM IN Study: Foot 2 Views Date of Exam: 08/17/25 Exam# [id number] Ordering Dr: Jersey Pradhan MD PROCEDURE: FOOT [...] prominent overlying the great toe. Reading Location: [place] [address] CC: Dr. Delmy Solorzano MD; Dr. Jersey Pradhan MD Team Foreman: Signed Normal [facility] Gram Stainon 08-17-2025 GS Gram Stain Rare Gram negative rods Rare White Blood Cells No Epithelial cells Normal [facility] Comment on above: Performed By: #### L 400.0001 #### [facility] [address] [facility] [place], [place], [address] Hemoglobin A1con 08-17-2025 HbA1c (Bld) [Mass fraction] 12.5 % High <=5.6 [facility] Comment on above: Result Comment: Norm al < 5.7 % Prediabetic 5.7 - 6.4 % Diabetic >or= 6.5 % Please note range changes. Performed By: #### L 501.080 #### [facility] [address] [facility] [place], [place], [address] Hemoglobin A1c percentageOrd ered By: Olamide Mas on 08-17-2025 HbA1c (Bld) [Mass fraction] 12.5 % High <5.7 [facility] Comment on above: Normal < 5.7 % Predi abetic 5.7 - 6.4 % Diabetic >or= 6.5 % Please note range changes. L501.4021on 08-17-2025 Trop T High Sen 37 ng/L High <=14 [facility] Comment on above: Performed By: #### L 501.080 #### [facility] [address] [place], [place], [address] L509.7001on 08-17-2025 Procalcitonin 0.13 ng/mL High <=0.10 [facility] Comment on above: Result Comment: Inte [...] patient. Performed By: #### L 509.7001 #### [facility] [address] [place], [place], [address] LDL calc ser/plasOrdered By: Olamide Tg on 08-17-2025 Cholesterol in LDL [Mass/Vol] 74 mg/dL [facility] Comment on above: Iapnbamkvi=629-974 m g/dL & Higher Eirn=337 mg/dL or greaterFriedwald Equation for LDL-C Laboratory - Chemistry and C hemistry - challengeOrdered By: Olamide Mas on 08-17-2025 AST [Catalytic activity/Vol] 19 U/L <32 [facility] Lipid Profileon 08-17-2025 CHOL:HDL 5.14 Normal [facility] Comment on above: Performed By: #### L 501.080 #### [facility] [address] [facility] [id number] (152) Cholesterol [Mass/Vol] 146 mg/dL Normal <=200 [facility] Comment on above: Result Comment: Chol esterol level, Desirable <200 mg/dL Borderline high cholesterol 200-239 mg/dL High cholesterol >=240 mg/dL Recommendations of the NCEP Adult Treatment Panel for the following risk-cutoff thresholds for the [place] population. Performed By: #### L 501.080 #### [facility] [address] [place], [place], [address] Cholesterol in HDL [Mass/Vol] 28 mg/dL Low [facility] Comment on above: Result Comment: Myla onal Cholesterol Education Program (NCEP) guidelines: <40 mg/dL: Low HDL-cholesterol (major risk factor for CHD) >= 60 mg/dL: High HDL-cholesterol (negative risk factor for CHD) HDL-cholesterol is affected by a number of factors, e.g. smoking, exercise, hormones, sex and age. Performed By: #### L 501.080 #### [facility] [address] [place], [place], [address] Cholesterol in LDL [Mass/Vol] 74 mg/dL Normal [facility] Comment on above: Result Comment: Bord vmahaz=732-825 mg/dL Higher Bujr=072 mg/dL or greater Friedwald Equation for LDL-C Performed By: #### L 501.080 #### [facility] [address] [place], [place], [address] Cholesterol in VLDL [Mass/Vol] 44 mg/dL High 5-40 [facility] Comment on above: Performed By: #### L 501.080 #### [facility] [address] [place], [place], [address] Triglyceride [Mass/Vol] 218 mg/dL High [facility] Comment on above: Result Comment: The drugs N-Acetylcysteine and Metamizole may falsely depress this assay. Normal range: <150 mg/dL Borderline High: 150-199 mg/dL High: 200-499 mg/dL Very High: >500 mg/dL Performed By: #### L 501.080 #### [facility] [address] [place], [place], [address] Screening total cholesterol/ high density lipoprotein (HDL) cholesterol ratioOrdered By: Olamide Mas on 08-17-2025 Cholesterol.total/Choles terol in HDL [Mass ratio] 5.14 {ratio} [facility] Serum globulin measurementOr dered By: Olamide Mas on 08-17-2025 Globulin (S) [Mass/Vol] 3.2 g/dL 2.2-4.2 [facility] Serum or plasma alanine mccollum otransferase (ALT) measurementOrdered By: Olamide Mas on 08-17-2025 ALT [Catalytic activity/Vol] 20 U/L <35 [facility] Serum or plasma albumin yunior urement (mass/volume)Ordered By: Olamide Mas on 08-17-2025 Albumin [Mass/Vol] 3.5 g/dL 3.5-5.0 [facility] Serum or plasma albumin/glob ulin mass ratioOrdered By: Olamide Mas on 08-17-2025 Albumin/Globulin [Mass ratio] 1.1 {ratio} 0.9-2.4 [facility] Serum or plasma alkaline janis sphatase measurementOrdered By: lOamide Mas on 08-17-2025 ALP [Catalytic activity/Vol] 76 U/L 35-104 [facility] Serum or plasma cholesterol in HDL measurement (mass/volume)Ordered By: Olamide Mas on 08-17-2025 Cholesterol in HDL [Mass/Vol] 28 mg/dL Low >40 [facility] Comment on above: National Cholesterol Education Program (NCEP) guidelines:<40 mg/dL: Low HDL-cholesterol (major risk factor for CHD)>= 60 mg/dL: High HDL-cholesterol (negative risk factor for CHD)HDL-cholesterol is affected by a number of factors, e.g. smoking, exercise, hormones, sex and age. Serum or plasma cholesterol measurement (mass/volume)Ordered By: Olamide Mas on 08-17-2025 Cholesterol [Mass/Vol] 146 mg/dL <201 [facility] Comment on above: Cholesterol level, D esirable <200 mg/dLBorderline high cholesterol 200-239 mg/dLHigh cholesterol >=240 mg/dLRecommendations of the NCEP Adult Treatment Panel for the following risk-cutoff thresholds for the [place] population. TSH DL <= 0.005 mIU/L QnOrde red By: Olamide Mas on 08-17-2025 TSH Qn 6.510 uIU/mL High 0.300-4.200 [facility] Thyroid Stim Hormone (TSH)on 08-17-2025 TSH 6.510 uIU/mL High 0.300-4.200 [facility] Comment on above: Performed By: #### L 501.080 #### [facility] [place], [address] Total proteinOrdered By: Alvaro Mas on 08-17-2025 Protein [Mass/Vol] 6.7 g/dL 5.9-8.4 [facility] Triglycerides measurementOrd ered By: Olamide Mas on 08-17-2025 Triglyceride [Mass/Vol] 218 mg/dL High <199 [facility] Comment on above: The drugs N-Acetylcy steine and Metamizole may falsely depress this assay. Normal range: <150 mg/dLBorderline High: 150-199 mg/dLHigh: 200-499 mg/dLVery High: >500 mg/dL Troponin T HS 2 HRon 025 Trop T High Sen 35 ng/L High <=14 [facility] Comment on above: Performed By: #### L 499.0042 #### [facility] [address] [place], [place], [address] Troponin T HS 4 HRon 025 Trop T High Sen 35 ng/L High <=14 [facility] Comment on above: Performed By: #### L 499.0043 #### [facility] [address] [place], [place], [id number] Troponin T.cardiac [Mass/vol ume] in Serum or Plasma by High sensitivity methodOrdered By: Olamide Mas on 08-17-2025 Troponin T.cardiac High sensitivity method [Mass/Vol] 35 ng/L High <14 [facility] Troponin T.cardiac High sensitivity method [Mass/Vol] 35 ng/L High <14 [facility] Vancomycin, Trough Levelon 0 08-17-2025 VANCO, TROUGH 20.3 ug/mL High 5.0-15.0 [facility] Comment on above: Order Comment: 2100 [...] (Ventilator/Healtcare Associated) -Sepsis PLEASE CONTACT PHARMACY SERVICES (#[id number]) FOR INTERPRETATION OF RESULTS. Performed By: #### L 499.0043 #### [facility] [address] [place], [place], [address] 12 Lead EKGon 08-16-2025 12 Lead EKG [facility] Cardiovascular Services [address] [place] [address] 12 Lead EKG 08/16/25 1905 MR#: [id number] Acct: [id number] Name: MACARIO WALLACE Rep #: [id number] : 1975 50 From: Audi Gamino MD Attending Dr: Dr. Jersey Pradhan MD Status: ADM IN Ordering Dr: Jozef Kaiser MD Date: 08/16/25 Location: [facility] Sex: F C Admitted: 08/16/25 Test Reason : DYSRHYTHMIA Blood Pressure : */* mmHG Vent. Rate : 93 BPM Atrial Rate : 93 BPM P-R Int : 140 ms QRS Dur : 86 ms QT Int : 368 ms P-R-T Axes : 14 -2 65 degrees QTcB Int : 457 ms Normal sinus rhythm Normal ECG Confirmed by HASMUKH LORA, AUDI ([id number]), legal editor RANDI BROWNLEE ([id number]) on 08/17/2025 9:41:15 AM Referred By: Confirmed By: AUDI GAMINO MD 08/17/25 0941 Date Audi Gamino MD CC: Dr. Delmy Solorzano MD; Dr. Jersey Pradhan MD; Dr. Jozef Kaiser MD Signed Normal [facility] Absolute lymphocyte countOrd ered By: Jozef Kaiser on 08-16-2025 Lymphocytes Auto (Unsp spec) [#/Vol] 1.92 10*3/uL 0.83-4.51 [facility] Absolute neutrophil countOrd ered By: Jozef Kaiser on 08-16-2025 Neutrophils (Bld) [#/Vol] 6.8 10*3/uL 2.0-7.7 [facility] Activated partial thrombopla stin time (aPTT) in platelet poor plasma by coagulation aOrdered By: Jozef Kaiser on 08-16-2025 aPTT Coag (PPP) [Time] 29.8 s 24.1-36.2 [facility] Anion gap in Serum or Plasma Ordered By: Jozef Kaiser on 08-16-2025 Anion gap [Moles/Vol] 14 mmol/L 5-15 [facility] Automated lymphocyte count a s percentage of total leukocytesOrdered By: Jozefpedro Maloneo on 08-16-2025 Lymphocytes/100 WBC Auto (Unsp spec) 20.4 % 19-41 [facility] BUN/creatinine ratioOrdered By: Jozef Kaiser on 08-16-2025 Urea nitrogen/Creatinine [Mass ratio] 29.7 mg/mg High 10-20 [facility] Basophil percentageOrdered B y: Jozefpedro Maloneo on 08-16-2025 Basophils/100 WBC (Bld) 0.7 % 0-1 [facility] Bilirubin, totalOrdered By: Jozef Kaiser on 08-16-2025 Bilirubin [Mass/Vol] 0.23 mg/dL 0.00-1.30 [facility] Blood cultureOrdered By: Jozefpedro Kaiser on 08-16-2025 Bacteria identified Cx Nom (Bld) No growth in 5 days. [facility] Bacteria identified Cx Nom (Bld) No growth in 5 days. [facility] CBC W/Diff, Automatedon 08-01 Absolute Lymph 1.92 X10 3/uL Normal 0.83-4.51 [facility] Comment on above: Performed By: #### L 499.0042 #### [facility] [address] [place], [address] Absolute Neut 6.8 X10 3/uL Normal 2.0-7.7 [facility] Comment on above: Performed By: #### L 499.0042 #### [facility] [address] [place], [address] Basophils/100 WBC (Bld) 0.7 % Normal 0-1 [facility] Comment on above: Performed By: #### L 499.0042 #### [facility] [address] [place], [address] Eosinophils/100 WBC (Bld) 2.0 % Normal 0-5 [facility] Comment on above: Performed By: #### L 499.0042 #### [facility] [address] [place], [address] Erythrocyte distribution width (RBC) [Ratio] 13.7 % Normal 11.6-14.6 [facility] Comment on above: Performed By: #### L 499.0042 #### [facility] [address] [place], [address] Hematocrit (Bld) [Volume fraction] 29.6 % Low 37-47 [facility] Comment on above: Performed By: #### L 499.0042 #### [facility] [address] [place], [address] Hemoglobin (Bld) [Mass/Vol] 9.2 g/dL Low 12.0-15.0 [facility] Comment on above: Performed By: #### L 499.0042 #### [facility] [address] [place], [address] IG% 0.600 Normal 0.0-0.9 [facility] Comment on above: Result Comment: IG% - Immature Granulocytes (promyelocytes, myelocytes and metamyelocytes) > 1% indicates that a LEFT SHIFT is Present. Performed By: #### L 499.0042 #### [facility] [address] [place], [address] Lymphocytes/100 WBC (Bld) 20.4 % Normal 19-41 [facility] Comment on above: Performed By: #### L 499.0042 #### [facility] [address] [place], [address] MCH (RBC) [Entitic mass] 28.2 pg Normal 27.0-32.0 [facility] Comment on above: Performed By: #### L 499.0042 #### [facility] [address] [place], [address] MCHC (RBC) [Mass/Vol] 31.1 g/dL Low 32-36 [facility] Comment on above: Performed By: #### L 499.0042 #### [facility] [address] [place], [address] MCV (RBC) [Entitic vol] 90.8 fL Normal 81-99 [facility] Comment on above: Performed By: #### L 499.0042 #### [facility] [address] [place], [address] Monocytes/100 WBC (Bld) 4.1 % Normal 0-10 [facility] Comment on above: Performed By: #### L 499.0042 #### [facility] [address] [place], [address] Neutrophils/100 WBC (Bld) 72.2 % High 47-70 [facility] Comment on above: Performed By: #### L 499.0042 #### [facility] [address] [place], [address] Nucleated RBC (Bld) [#/Vol] 0 10*3/uL Normal 0-5 [facility] Comment on above: Performed By: #### L 499.0042 #### [facility] [address] [place], [address] Platelet mean volume (Bld) [Entitic vol] 10.5 fL Normal 6.2-12.0 [facility] Comment on above: Performed By: #### L 499.0042 #### [facility] [address] [place], [address] Platelets (Bld) [#/Vol] 254 10*3/uL Normal 150-450 [facility] Comment on above: Performed By: #### L 499.0042 #### [facility] [address] [place], [address] RBC (Bld) [#/Vol] 3.26 10*6/uL Low 4.2-5.4 [facility] Comment on above: Performed By: #### L 499.0042 #### [facility] [address] [place], [address] RDW SD 45.8 fl High 35.1-43.9 [facility] Comment on above: Performed By: #### L 499.0042 #### [facility] [address] [place], [address] WBC (Bld) [#/Vol] 9.4 10*3/uL Normal 4.4-11.0 [facility] Comment on above: Performed By: #### L 499.0042 #### [facility] [address] [place], [place], [id number] ([address] Carbon dioxide, total [Moles /volume] in Central venous bloodOrdered By: Jozef Kaiser on 08-16-2025 CO2 [Moles/Vol] 30.0 mmol/L 21.0-32.0 [facility] Chest PA and Lateralon 08-16 Chest PA and Lateral [facility] Imaging Services [address] [place], [place] [address] (5[address] Chest PA and Lateral MR#: [id number] Acct: [id number] Name: MACARIO WALLACE Rep #: [id number] : 1975 F 50 From: Paulino Morrissey MD PCP: Dr. Delmy Solorzano MD Status: [facility] ER Study: Chest PA and Lateral Date of Exam: 08/16/25 Exam# [id number] Ordering Dr: Jozef Kaiser MD PROCEDURE: CHEST [...] airspace consolidation or pleural effusions. Reading Location: [facility] CC: Dr. Delmy Solorzano MD; Dr. Jozef Kaiser MD Team Foreman: Signed Normal [facility] Chloride assayOrdered By: Savanna Kaiser on 08-16-2025 Chloride [Moles/Vol] 90 mmol/L Low 98-108 [facility] Comprehensive Metabolic Prof ilon 08-16-2025 Albumin [Mass/Vol] 3.5 g/dL Normal 3.5-5.0 [facility] Comment on above: Performed By: #### L 499.0042 #### [facility] [address] [place], [address] Albumin/Globulin [Mass ratio] 1.1 {ratio} Normal 0.9-2.4 [facility] Comment on above: Performed By: #### L 499.0042 #### [facility] [address] [place], [address] ALK PHOS 81 U/L Normal 35-104 [facility] Comment on above: Performed By: #### L 499.0042 #### [facility] [address] [place], [address] ALT [Catalytic activity/Vol] 23 U/L Normal <=34 [facility] Comment on above: Performed By: #### L 499.0042 #### [facility] [address] [place], [address] AST [Catalytic activity/Vol] 24 U/L Normal <=31 [facility] Comment on above: Performed By: #### L 499.0042 #### [facility] [address] [place], [address] Bilirubin [Mass/Vol] 0.23 mg/dL Normal 0.00-1.30 [facility] Comment on above: Performed By: #### L 499.0042 #### [facility] [address] [place], [address] BUN/CRE 29.7 RATIO High 10-20 [facility] Comment on above: Performed By: #### L 499.0042 #### [facility] [address] [place], [address] Calcium [Mass/Vol] 8.2 mg/dL Normal 7.6-11.0 [facility] Comment on above: Performed By: #### L 499.0042 #### [facility] [address] [place], [address] Chloride [Moles/Vol] 90 mmol/L Low 98-108 [facility] Comment on above: Performed By: #### L 499.0042 #### [facility] [address] [place], [address] CO2 [Moles/Vol] 30.0 mmol/L Normal 21.0-32.0 [facility] Comment on above: Performed By: #### L 499.0042 #### [facility] [address] [place], [address] Creatinine [Mass/Vol] 1.07 mg/dL Normal 0.70-1.20 [facility] Comment on above: Performed By: #### L 499.0042 #### [facility] [address] [place], [address] ECRCL 110.03 ml/min Normal 50-250 [facility] Comment on above: Performed By: #### L 499.0042 #### [facility] [address] [place], [address] GAP 14 Normal 5-15 [facility] Comment on above: Performed By: #### L 499.0042 #### [facility] [address] [place], [address] GFR/1.73 sq M.predicted among non-blacks MDRD (S/P/Bld) [Vol rate/Area] 64 mL/min/{1.73_m2} Normal >60 [facility] Comment on above: Result Comment: mL/m in/1.73m2 CKD-EPI Creatinine Equation (2020) Performed By: #### L 499.0042 #### [facility] [address] [place], [address] Globulin (S) [Mass/Vol] 3.2 g/dL Normal 2.2-4.2 [facility] Comment on above: Performed By: #### L 499.0042 #### [facility] [address] [place], [address] Glucose [Mass/Vol] 525 mg/dL Invalid Interpretation Code 70-99 [facility] Comment on above: Result Comment: Crit ical Result(s) Called at: 08-16-25 20:26 TO CRISTINA RAWLS by:??NADIA PICKETT Results read back by same. Performed By: #### L 499.0042 #### [facility] [address] [place], [address] Potassium [Moles/Vol] 3.8 mmol/L Normal 3.3-5.1 [facility] Comment on above: Performed By: #### L 499.0042 #### [facility] [address] [place], [address] Sodium [Moles/Vol] 134 mmol/L Normal 133-145 [facility] Comment on above: Performed By: #### L 499.0042 #### [facility] [address] [place], [address] T PROT 6.7 g/dL Normal 5.9-8.4 [facility] Comment on above: Performed By: #### L 499.0042 #### [facility] [address] [place], [address] Urea nitrogen [Mass/Vol] 32 mg/dL High 4-19 [facility] Comment on above: Performed By: #### L 499.0042 #### [facility] [address] [place], [address] Emergency Department Summary on 08-16-2025 Emergency Department Summary [facility] Medical Records Department [address] [place] [address] Emergency Department Summary 08/16/25 MR#: [id number] Acct: [id number] Name: MACARIO WALLACE Rep #: [id number] : 1975 50 From: Jozef Kaiser MD [...] 1 mg (more content not included)... Normal [facility] Eosinophil percentageOrdered By: Jozef Kaiser on 08-16-2025 Eosinophils/100 WBC (Bld) 2.0 % 0-5 [facility] Erythrocyte distribution wid th ratioOrdered By: Jozef Kaiser on 08-16-2025 Erythrocyte distribution width (RBC) [Ratio] 13.7 % 11.6-14.6 [facility] Erythrocyte distribution wid th standard deviationOrdered By: Jozef Kaiser on 08-16-2025 Erythrocyte distribution width (RBC) [Ratio] 45.8 fl High 35.1-43.9 [facility] Glomerular filtration rate ( GFR) estimation/1.73 sq m using serum, plasma, or whole bOrdered By: Jozef Kaiser on 08-16-2025 GFR/1.73 sq M.predicted among non-blacks MDRD (S/P/Bld) [Vol rate/Area] 64 mL/min/{1.73_m2} >60 [facility] Comment on above: mL/min/1.73m2 CKD-EP I Creatinine Equation (2020) Gram stainOrdered By: Jozef morrow on 08-16-2025 Microscopic observation Gram stain Nom (Unsp spec) [facility] H AND P Exam - Hospitaliston 08-16-2025 H&P Exam - Hospitalist [facility] Medical Records Department [address] [place] [address] H P Exam - Hospitalist 08/16/252105 MR#: [id number] Acct: [id number] Name: MACARIO WALLACE Rep #: [id number] : 1975 50 From: Olamide Mas MD PCP: Dr. 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 [facility] Medical History (Updated 08/16/25 @ 21:32 [...] 09/22/22 0 (more content not included)... Normal [facility] Hematocrit Auto (Bld) [Volum e fraction]Ordered By: Jozef Kaiser on 08-16-2025 Hematocrit (Bld) [Volume fraction] 29.6 % Low 37-47 [facility] Hemoglobin measurementOrdere d By: Jozefpedro Kaiser on 08-16-2025 Hemoglobin (Bld) [Mass/Vol] 9.2 g/dL Low 12.0-15.0 [facility] Immature granulocytes/100 WB C Auto (Bld)Ordered By: Jozefpedro Kaiser on 08-16-2025 Immature granulocytes/100 WBC (Bld) 0.600 % 0.0-0.9 [facility] Comment on above: IG% - Immature Granu locytes (promyelocytes, myelocytes and metamyelocytes) > 1% indicates that a LEFT SHIFT is Present. International normalized rat io (INR) calculationOrdered By: Jozefpedro Kaiser on 08-16-2025 INR Coag (Bld) [Relative time] 1.1 {INR} [facility] L501.4021on 08-16-2025 Trop T High Sen 37 ng/L High <=14 [facility] Comment on above: Performed By: #### L 499.0042 #### [facility] [address] [place], [address] Laboratory - Chemistry and C hemistry - challengeOrdered By: Jozefpedro Kaiser on 08-16-2025 AST [Catalytic activity/Vol] 24 U/L <32 [facility] Lactic Acidon 08-16-2025 Lactate [Moles/Vol] 1.9 mmol/L Normal 0.0-2.0 [facility] Comment on above: Order Comment: Y Performed By: #### L 499.0042 #### [facility] [address] [place], [place], [address] Lactic acid measurementOrder ed By: Jozef Kaiser on 08-16-2025 Lactate [Moles/Vol] 1.9 mmol/L 0.0-2.0 [facility] M8200.1075on 08-16-2025 M8200.1075 Normal Reference Range = Negative MRSA/SAUR WOUND PCR GeneXpert Instrument, PCR method MRSA/SAUR WOUND PCR Copy of report sent to Infection Control Printer MS#[id number] 08/16/25 2312 HAKEEM. RESULTS CALLED TO YO MONTEIRO 08/16/25 2317 Yvrose Martinez. REPORT READ BACK BY SAME. MRSA PCR MRSA POSITIVE A STAPH. AUREUS PCR STAPH AUREUS POSITIVEA STAPH. AUREUS PCR STAPH AUREUS POSITIVEA mecA Testing not performed Normal [facility] Comment on above: Performed By: #### L 501.080 #### [facility] [address] [place], [address] MCV (mean corpuscular volume ) determinationOrdered By: Jozefpedro Kaiser on 08-16-2025 MCV (RBC) [Entitic vol] 90.8 fL 81-99 [facility] Magnesiumon 08-16-2025 Magnesium [Mass/Vol] 1.4 mg/dL Low 1.5-2.2 [facility] Comment on above: Order Comment: Comme nts: may add to ED labs Performed By: #### L 501.080 #### [facility] [address] [place], [address] Mean corpuscular hemoglobin (MCH) determinationOrdered By: Jozef Kaiser on 08-16-2025 MCH (RBC) [Entitic mass] 28.2 pg 27.0-32.0 [facility] Mean corpuscular hemoglobin concentration (MCHC) determinationOrdered By: Jozef Kaiser on 08-16-2025 MCHC (RBC) [Mass/Vol] 31.1 g/dL Low 32-36 [facility] Mean platelet volume determi nationOrdered By: Jozef Kaiser on 08-16-2025 Platelet mean volume (Bld) [Entitic vol] 10.5 fL 6.2-12.0 [facility] Methicillin resistant Staphy lococcus aureus detection by polymerase chain reactionOrdered By: Olamide Mas on 08-16-2025 Bacterial nucleic acid assay Meth. resistant Staph. aureus Abnormal [facility] Monocyte percentageOrdered B y: Jozef Kaiser on 08-16-2025 Monocytes/100 WBC (Bld) 4.1 % 0-10 [facility] Natriuretic peptide.B prohor britany N-Terminal [Mass/volume] in Serum or PlasmaOrdered By: Jozef Kaiser on 08-16-2025 Natriuretic peptide.B prohormone N-Terminal [Mass/Vol] 163 pg/mL <450 [facility] Comment on above: Heart Failure Unlike ly: < 300 pg/mLHeart Failure Likely< 50 Years: > 450 pg/mL50-75 Years: > 900 pg/mL>75 Years: > 1800 pg/mL Neutrophil percentageOrdered By: Jozef Kaiser on 08-16-2025 Neutrophils/100 WBC (Bld) 72.2 % High 47-70 [facility] Nucleated red blood cell per centageOrdered By: Jozefpedro Kaiser on 08-16-2025 Nucleated RBC/100 WBC (Bld) [Ratio] 0 % 0-5 [facility] Partial Thromboplast Timeon 08-16-2025 aPTT Coag (Bld) [Time] 29.8 s Normal 24.1-36.2 [facility] Comment on above: Performed By: #### L 499.0042 #### [facility] [address] [place], [place], [address] Platelet countOrdered By: Savanna Kaiser on 08-16-2025 Platelets (Bld) [#/Vol] 254 10*3/uL 150-450 [facility] Potassium measurement (mass/ volume)Ordered By: Jozef Kaiser on 08-16-2025 Potassium (Unsp spec) [Mass/Vol] 3.8 mmol/L 3.3-5.1 [facility] Pro- Brain NATRIURETIC PEPTI Robb 08-16-2025 Natriuretic peptide B (Bld) [Mass/Vol] 163 pg/mL Normal <=450 [facility] Comment on above: Result Comment: Hear t Failure Unlikely: < 300 pg/mL Heart Failure Likely < 50 Years: > 450 pg/mL 50-75 Years: > 900 pg/mL >75 Years: > 1800 pg/mL Performed By: #### L 499.0042 #### [facility] [address] [place], [place], [address] Procalcitonin [Mass/volume] in Serum or Plasma by ImmunoassayOrdered By: Olamide Mas on 08-16-2025 Procalcitonin IA [Mass/Vol] 0.13 ng/mL High <0.11 [facility] Comment on above: Interpretation:<0.10 -0.25 ng/mL: [...] Coag (PPP) [Relative time] 1.1 {INR} Normal [facility] Comment on above: Performed By: #### L 499.0042 #### [facility] [address] [place], [place], [address] PT Coag (PPP) [Time] 14.3 s Normal 11.7-14.9 [facility] Comment on above: Performed By: #### L 499.0042 #### [facility] [address] [place], [place], [address] Prothrombin timeOrdered By: Jozef Kaiser on 08-16-2025 PT Coag (PPP) [Time] 14.3 s 11.7-14.9 [facility] RBC Auto (Bld) [#/Vol]Ordere d By: Jozef Kaiser on 08-16-2025 RBC (Bld) [#/Vol] 3.26 10*6/uL Low 4.2-5.4 [facility] Routine wound cultureOrdered By: Jozef Kaiser on 08-16-2025 Microbial culture, routine Meth. resistant Staph. aureus Abnormal [facility] Microbial culture, routine Streptococcus thoraltensis Abnormal [facility] Microbial culture, routine Streptococcus mitis/ oralis Abnormal [facility] Serum creatinine measurement (mass/volume)Ordered By: Jozef Kaiser on 08-16-2025 Creatinine [Mass/Vol] 1.07 mg/dL 0.70-1.20 [facility] Serum globulin measurementOr dered By: Jozef Kaiser on 08-16-2025 Globulin (S) [Mass/Vol] 3.2 g/dL 2.2-4.2 [facility] Serum glucose measurement (m ass/volume)Ordered By: Jozef Kaiser on 08-16-2025 Glucose [Mass/Vol] 525 mg/dL High 70-99 [facility] Comment on above: Critical Result(s) C alled at: 08-16-25 20:26 TO CRISTINA RAWLS by: NADIA PICKETT Results read back by same. Serum or plasma alanine mccollum otransferase (ALT) measurementOrdered By: Jozef Kaiser on 08-16-2025 ALT [Catalytic activity/Vol] 23 U/L <35 [facility] Serum or plasma albumin yunior urement (mass/volume)Ordered By: Jozef Kaiser on 08-16-2025 Albumin [Mass/Vol] 3.5 g/dL 3.5-5.0 [facility] Serum or plasma albumin/glob ulin mass ratioOrdered By: Jozefpedro Kaiser on 08-16-2025 Albumin/Globulin [Mass ratio] 1.1 {ratio} 0.9-2.4 [facility] Serum or plasma alkaline janis sphatase measurementOrdered By: Jozefpedro Kaiser on 08-16-2025 ALP [Catalytic activity/Vol] 81 U/L 35-104 [facility] Serum or plasma calcium yunior urement (mass/volume)Ordered By: Jozef Kaiser on 08-16-2025 Calcium [Mass/Vol] 8.2 mg/dL 7.6-11.0 [facility] [facility] Serum or plasma urea nitroge n measurement (mass/volume)Ordered By: Jozef Kaiser on 08-16-2025 Urea nitrogen [Mass/Vol] 32 mg/dL High 4-19 [facility] Sodium levelOrdered By: Jozef Kaiser on 08-16-2025 Sodium [Moles/Vol] 134 mmol/L 133-145 [facility] Total proteinOrdered By: Jozef Kaiser on 08-16-2025 Protein [Mass/Vol] 6.7 g/dL 5.9-8.4 [facility] Troponin T HS 2 HRon 025 Trop T High Sen Normal <=14 [facility] Comment on above: Result Comment: Artis staton via OM: Ordered Performed By: #### L 501.080 #### [facility] [address] [place], [place], [address] Troponin T HS 4 HRon 025 Trop T High Sen Normal <=14 [facility] Comment on above: Result Comment: Artis staton via OM: MD Ordered Performed By: #### L 501.080 #### [facility] [address] [place], [place], [address] Troponin T.cardiac [Mass/vol ume] in Serum or Plasma by High sensitivity methodOrdered By: Olamide Mas on 08-16-2025 Troponin T.cardiac High sensitivity method [Mass/Vol] 37 ng/L High <14 [facility] Troponin T.cardiac [Mass/vol ume] in Serum or Plasma by High sensitivity methodOrdered By: Jozef Kaiser on 08-16-2025 Troponin T.cardiac High sensitivity method [Mass/Vol] 37 ng/L High <14 [facility] White blood cell (WBC) count Ordered By: Jozef Kaiser on 08-16-2025 WBC (Bld) [#/Vol] 9.4 10*3/uL 4.4-11.0 [facility] ALBUMIN/CREATININE RATIO, UR INEon 06-09-2025 Albumin DL <= 20 mg/L (U) [Mass/Vol] mg/dL Normal [facility] Comment on above: Order Comment: Speci men Type: URINE SPECIMEN Ordering Facility: External Submitter Address: , , Performed By: #### U ACR #### [facility] CLIA [id number] [address] [place] [address] [place] Albumin/Creatinine (U) [Mass ratio] <18 Normal <30 [facility] Comment on above: Order Comment: Speci dahiana [...] 1-150. Performed By: #### U ACR #### [facility] CLIA [id number] [address] [place] [address] [place] Creatinine (U) [Mass/Vol] 66.4 mg/dL Normal 20.0-300.0 [facility] Comment on above: Order Comment: Speci men Type: URINE SPECIMEN Ordering Facility: External Submitter Address: , , Performed By: #### U ACR #### [facility] CLIA [id number] [address] [place] [address] [place] CBC W Auto Differential pane l (Bld)on 06-09-2025 Basophils (Bld) [#/Vol] 0.06 10*3/uL Normal <0.11 [facility] Comment on above: Order Comment: Speci men Type: BLOOD SPECIMEN Ordering Facility: External Submitter Address: , , Performed By: #### 5 7021-8 #### [facility] CLIA [id number] [address] [place] [address] [place] Basophils/100 WBC (Bld) 0.7 % Normal [facility] Comment on above: Order Comment: Roberto tlabot Type: BLOOD SPECIMEN Ordering Facility: External Submitter Address: , , Performed By: #### 5 7021-8 #### [facility] CLIA [id number] [address] [place] [address] [place] Differential cell count method Nom (Bld) Auto Normal [facility] Comment on above: Order Comment: Speci men Type: BLOOD SPECIMEN Ordering Facility: External Submitter Address: , , Performed By: #### 5 7021-8 #### [facility] CLIA [id number] [facility] [address], [facility]95 [place] Eosinophils (Bld) [#/Vol] 0.23 10*3/uL Normal <0.46 [facility] Comment on above: Order Comment: Speci men Type: BLOOD SPECIMEN Ordering Facility: External Submitter Address: , , Performed By: #### 5 7021-8 #### [facility] CLIA [id number] [address] [place] [address], [facility]95 [place] Eosinophils/100 WBC (Bld) 2.9 % Normal [facility] Comment on above: Order Comment: Speci men Type: BLOOD SPECIMEN Ordering Facility: External Submitter Address: , , Performed By: #### 5 7021-8 #### [facility] CLIA [id number] [address] [place], [place] [address] [place] Erythrocyte distribution width (RBC) [Ratio] 13.4 % Normal 11.5-15.0 [facility] Comment on above: Order Comment: Speci men Type: BLOOD SPECIMEN Ordering Facility: External Submitter Address: , , Performed By: #### 5 7021-8 #### [facility] CLIA [id number] [address] [place] [address], [place] [address] [place] Hematocrit (Bld) [Volume fraction] 34.8 % Low 36.0-46.0 [facility] Comment on above: Order Comment: Speci men Type: BLOOD SPECIMEN Ordering Facility: External Submitter Address: , , Performed By: #### 5 7021-8 #### [facility] CLIA [id number] [address] [place] [address], [place] [address] [place] Hemoglobin (Bld) [Mass/Vol] 10.6 g/dL Low 11.5-15.5 [facility] Comment on above: Order Comment: Speci men Type: BLOOD SPECIMEN Ordering Facility: External Submitter Address: , , Performed By: #### 5 7021-8 #### [facility] CLIA [id number] [facility] [address] [address] [place] Immature granulocytes (Bld) [#/Vol] 0.05 10*3/uL Normal <0.10 [facility] Comment on above: Order Comment: Speci men Type: BLOOD SPECIMEN Ordering Facility: External Submitter Address: , , Performed By: #### 5 7021-8 #### [facility] CLIA [id number] [address] [place], [place] [address] [place] Immature granulocytes/100 WBC (Bld) 0.6 % Normal [facility] Comment on above: Order Comment: Speci men Type: BLOOD SPECIMEN Ordering Facility: External Submitter Address: , , Performed By: #### 5 7021-8 #### [facility] CLIA [id number] [address] [place] [address] [place] Lymphocytes (Bld) [#/Vol] 1.76 10*3/uL Normal 1.00-4.00 [facility] Comment on above: Order Comment: Speci men Type: BLOOD SPECIMEN Ordering Facility: External Submitter Address: , , Performed By: #### 5 7021-8 #### [facility] CLIA [id number] [address] [address] [place] Lymphocytes/100 WBC (Bld) 21.8 % Normal [facility] Comment on above: Order Comment: Speci men Type: BLOOD SPECIMEN Ordering Facility: External Submitter Address: , , Performed By: #### 5 7021-8 #### [facility] CLIA [id number] [facility]0 [place] [id number] [place] MCH (RBC) [Entitic mass] 28.2 pg Normal 26.0-34.0 [facility] Comment on above: Order Comment: Speci men Type: BLOOD SPECIMEN Ordering Facility: External Submitter Address: , , Performed By: #### 5 7021-8 #### [facility] CLIA [id number] [address] [place] [address] [place] MCHC (RBC) [Mass/Vol] 30.5 g/dL Normal 30.5-36.0 [facility] Comment on above: Order Comment: Speci men Type: BLOOD SPECIMEN Ordering Facility: External Submitter Address: , , Performed By: #### 5 7021-8 #### [facility] CLIA [id number] [address] [place] [address] [place] MCV (RBC) [Entitic vol] 92.6 fL Normal 80.0-100.0 [facility] Comment on above: Order Comment: Speci men Type: BLOOD SPECIMEN Ordering Facility: External Submitter Address: , , Performed By: #### 5 7021-8 #### [facility] CLIA [id number] [address] [place] [address] [place] Monocytes (Bld) [#/Vol] 0.33 10*3/uL Normal <0.87 [facility] Comment on above: Order Comment: Speci men Type: BLOOD SPECIMEN Ordering Facility: External Submitter Address: , , Performed By: #### 5 7021-8 #### [facility] CLIA [id number] [address] [place], [place] [address] [place] Monocytes/100 WBC (Bld) 4.1 % Normal C [facility] Comment on above: Order Comment: Speci men Type: BLOOD SPECIMEN Ordering Facility: External Submitter Address: , , Performed By: #### 5 7021-8 #### [facility] CLIA [id number] [address] [place], [place] [address] [place] Neutrophils (Bld) [#/Vol] 5.63 10*3/uL Normal 1.45-7.50 [facility] Comment on above: Order Comment: Speci men Type: BLOOD SPECIMEN Ordering Facility: External Submitter Address: , , Performed By: #### 5 7021-8 #### [facility] CLIA [id number] [address] [place] [address] [place] Neutrophils/100 WBC (Bld) 69.9 % Normal [facility] Comment on above: Order Comment: Speci men Type: BLOOD SPECIMEN Ordering Facility: External Submitter Address: , , Performed By: #### 5 7021-8 #### [facility] CLIA [id number] [address] [place] [address] [place] Nucleated RBC (Bld) [#/Vol] 10*3/uL Normal <0.01 [facility] Comment on above: Order Comment: Speci men Type: BLOOD SPECIMEN Ordering Facility: External Submitter Address: , , Performed By: #### 5 7021-8 #### [facility] CLIA [id number] [address] [place] [address] [place] Nucleated RBC/100 WBC (Bld) [Ratio] 0.0 /100 WBC Normal [facility] Comment on above: Order Comment: Speci men Type: BLOOD SPECIMEN Ordering Facility: External Submitter Address: , , Performed By: #### 5 7021-8 #### [facility] CLIA [id number] [address] [place] [address] [place] Platelet mean volume (Bld) [Entitic vol] 11.4 fL Normal 9.0-12.7 [facility] Comment on above: Order Comment: Speci men Type: BLOOD SPECIMEN Ordering Facility: External Submitter Address: , , Performed By: #### 5 7021-8 #### [facility] CLIA [id number] [address] [place] [address] [place] Platelets (Bld) [#/Vol] 266 10*3/uL Normal 150-400 [facility] Comment on above: Order Comment: Speci men Type: BLOOD SPECIMEN Ordering Facility: External Submitter Address: , , Performed By: #### 5 7021-8 #### [facility] CLIA [id number] [address] [place] [address] [place] RBC (Bld) [#/Vol] 3.76 10*6/uL Low 3.90-5.20 [facility] Comment on above: Order Comment: Speci men Type: BLOOD SPECIMEN Ordering Facility: External Submitter Address: , , Performed By: #### 5 7021-8 #### [facility] CLIA [id number] [address] [place] [address] [place] WBC (Bld) [#/Vol] 8.06 10*3/uL Normal 3.70-11.00 [facility] Comment on above: Order Comment: Speci men Type: BLOOD SPECIMEN Ordering Facility: External Submitter Address: , , Performed By: #### 5 7021-8 #### [facility] CLIA [id number] [address] [place] [address] [place] Comprehensive metabolic 2000 panelon 06-09-2025 Albumin [Mass/Vol] 3.7 g/dL Low 3.9-4.9 [facility] Comment on above: Order Comment: Speci men Type: BLOOD SPECIMEN Ordering Facility: External Submitter Address: , , Performed By: #### 3 024-7, 65092-1, TSHRF #### [facility] CLIA [id number] [address] [place], [place] [address] [facility] [place] ALP [Catalytic activity/Vol] 72 U/L Normal 34-123 [facility] Comment on above: Order Comment: Speci men Type: BLOOD SPECIMEN Ordering Facility: External Submitter Address: , , Performed By: #### 3 024-7, 22447-8, TSHRF #### [facility] CLIA [id number] [address] [address] [place] ALT [Catalytic activity/Vol] 23 U/L Normal 7-38 [facility] Comment on above: Order Comment: Speci men Type: BLOOD SPECIMEN Ordering Facility: External Submitter Address: , , Performed By: #### 3 024-7, , TSHRF #### [facility] CLIA [id number] [facility]0 [place] [id number] [place] Anion gap [Moles/Vol] 10 mmol/L Normal 8-15 [facility] Comment on above: Order Comment: Speci men Type: BLOOD SPECIMEN Ordering Facility: External Submitter Address: , , Performed By: #### 3 024-7, , TSHRF #### [facility] CLIA [id number] [address] [place] [address] [place] AST [Catalytic activity/Vol] 28 U/L Normal 13-35 [facility] Comment on above: Order Comment: Speci men Type: BLOOD SPECIMEN Ordering Facility: External Submitter Address: , , Performed By: #### 3 024-7, , TSHRF #### [facility] CLIA [id number] [address] [place], [place] [address] [place] Bilirubin [Mass/Vol] 0.2 mg/dL Normal 0.2-1.3 [facility] Comment on above: Order Comment: Speci men Type: BLOOD SPECIMEN Ordering Facility: External Submitter Address: , , Performed By: #### 3 024-7, , TSHRF #### [facility] CLIA [id number] [address] [place], [place] [address] [place] Calcium [Mass/Vol] 9.1 mg/dL Normal 8.5-10.2 [facility] Comment on above: Order Comment: Speci men Type: BLOOD SPECIMEN Ordering Facility: External Submitter Address: , , Performed By: #### 3 024-7, , TSHRF #### [facility] CLIA [id number] [address] [address] [place] Chloride [Moles/Vol] 93 mmol/L Low 98-107 [facility] Comment on above: Order Comment: Roberto talbot Type: BLOOD SPECIMEN Ordering Facility: External Submitter Address: , , Performed By: #### 3 024-7, , TSHRF #### [facility] CLIA [id number] [address] [place] [id number] [place] CO2 [Moles/Vol] 32 mmol/L High 22-30 [facility] Comment on above: Order Comment: Roberto talbot Type: BLOOD SPECIMEN Ordering Facility: External Submitter Address: , , Performed By: #### 3 024-7, , TSHRF #### [facility] CLIA [id number] [address] [place] [address] [place] Creatinine [Mass/Vol] 1.04 mg/dL High 0.58-0.96 [facility] Comment on above: Order Comment: Roberto talbot Type: BLOOD SPECIMEN Ordering Facility: External Submitter Address: , , Performed By: #### 3 024-7, , TSHRF #### [facility] CLIA [id number] [address] [place] [phone] [facility] Creatinine and Glomerular filtration rate.predicted panel (S/P/Bld) 67 mL/min/1.73m??? Normal >=60 [facility] Comment on above: Order Comment: Roberto talbot [...] By: #### 3 024-7, , TSHRF #### [facility] CLIA [id number] [address] [address] [place] Glucose [Mass/Vol] 323 mg/dL High 74-99 [facility] Comment on above: Order Comment: Roberto talbot Type: BLOOD SPECIMEN Ordering Facility: External Submitter Address: , , Result Comment: The [place] Diabetes Association (ADA) provides guidance for [...] Standards of Medical Care in Diabetes 2016, [place] [employer]. Diabetes Care. 2016.39(Suppl 1). Performed By: #### 3 024-7, , TSHRF #### [facility] CLIA [id number] [address] [place] [address] [place] Potassium [Moles/Vol] 4.7 mmol/L Normal 3.7-5.1 [facility] Comment on above: Order Comment: Roberto talbot Type: BLOOD SPECIMEN Ordering Facility: External Submitter Address: , , Performed By: #### 3 024-7, , TSHRF #### [facility] CLIA [id number] [address] [address] [place] Protein [Mass/Vol] 7.1 g/dL Normal 6.3-8.0 [facility] Comment on above: Order Comment: Roberto talbot Type: BLOOD SPECIMEN Ordering Facility: External Submitter Address: , , Performed By: #### 3 024-7, , TSHRF #### [facility] CLIA [id number] [address] [place] [phone] [place] Sodium [Moles/Vol] 135 mmol/L Low 136-144 [facility] Comment on above: Order Comment: Roberto talbot Type: BLOOD SPECIMEN Ordering Facility: External Submitter Address: , , Performed By: #### 3 024-7, 93668-0, TSHRF #### [facility] CLIA [id number] [address] [place] [address] [place] Urea nitrogen [Mass/Vol] 24 mg/dL High 7-21 [facility] Comment on above: Order Comment: Roberto talbot Type: BLOOD SPECIMEN Ordering Facility: External Submitter Address: , , Performed By: #### 3 024-7, , TSHRF #### [facility] CLIA [id number] [address] [place] [address] [place] HbA1c (Bld)on 06-09-2025 Average glucose Estimated from glycated hemoglobin (Bld) [Mass/Vol] 266 mg/dL Normal [facility] Comment on above: Order Comment: Roberto talbot Type: BLOOD SPECIMEN Ordering Facility: External Submitter Address: , , Result Comment: eAG: (Estimated average glucose) is a calculated value from HgbA1c and is home furnishings sales representative of the average blood glucose level in the last 2-3 month period. Performed By: #### 5 5454-3 #### [facility] CLIA [id number] [address] [place] [address] [place] HbA1c (Bld) [Mass fraction] 10.9 % High 4.3-5.6 [facility] Comment on above: Order Comment: Roberto talbot [...] diabetes. Performed By: #### 5 5454-3 #### [facility] CLIA [id number] [address] [address] [place] T4 Free SerPl-mCncon 025 Free T4 [Mass/Vol] 1.1 ng/dL Normal 0.9-1.7 [facility] Comment on above: Order Comment: Speci men Type: BLOOD SPECIMEN Ordering Facility: External Submitter Address: , , Performed By: #### 3 024-7, 53388-8, TSHRF #### [facility] CLIA [id number] [address] [place] [id number] [place] TSH W/REFLEX FT4on 5 TSH Qn 4.340 m[IU]/L High 0.270-4.200 [facility] Comment on above: Order Comment: Speci men [...] E, et al. 2017 Guidelines of the [place] Thyroid Association for the Diagnosis and Management of Thyroid Disease during and the . Thyroid, 2017:27:3:315-389. Performed By: #### 3 024-7, 05179-3, TSHRF #### [facility] CLIA [id number] [address] [place] [phone] [place] Culture, Blood (WB)on 2023 CUB Blood cultures x2, from two different sites No growth in 5 days. Normal [facility] Comment on above: Performed By: #### L 509.7001 #### [facility] [address] [place], [address] Basic Metabolic Profile (BMP )on 11-12-2024 BUN/CRE 33.0 RATIO High 10-20 [facility] Comment on above: Performed By: #### L 501.080 #### [facility] [address] [place], [address] CA,Total 8.6 mg/dL Normal 8.5-10.1 [facility] Comment on above: Performed By: #### L 501.080 #### [facility] [address] [place], [address] Chloride [Moles/Vol] 97 mmol/L Low 98-107 [facility] Comment on above: Performed By: #### L 501.080 #### [facility] [address] [place], [address] CO2 [Moles/Vol] 36.0 mmol/L High 21.0-32.0 [facility] Comment on above: Performed By: #### L 501.080 #### [facility] [address] [place], [address] Creatinine [Mass/Vol] 0.91 mg/dL Normal 0.55-1.02 [facility] Comment on above: Result Comment: The validity of the calculated GFR GFRAA in patients over 70 years has not been determined. Clinical correlation is essential. Performed By: #### L 501.080 #### [facility] [address] [place], [address] ECRCL 126.01 ml/min Normal [facility] Comment on above: Performed By: #### L 501.080 #### [facility] [address] [place], [address] EST GFR - AA 85 mL/min Normal >60 [facility] Comment on above: Result Comment: Afri can [place] GFR Calc Performed By: #### L 501.080 #### [facility] [address] [place], [address] GAP 3 Low 5-15 [facility] Comment on above: Performed By: #### L 501.080 #### [facility] [address] [place], [address] GFR/1.73 sq M.predicted among non-blacks MDRD (S/P/Bld) [Vol rate/Area] 70 mL/min/{1.73_m2} Normal >60 [facility] Comment on above: Result Comment: Non- GFR Calc Performed By: #### L 501.080 #### [facility] [address] [place], [address] Glucose [Mass/Vol] 191 mg/dL High 74-106 [facility] Comment on above: Result Comment: Fast ing Glucose result greater than or equal to 126 mg/dL suggests DIABETES MELLITUS per A.D.A. criteria. Performed By: #### L 501.080 #### [facility] [address] [place], [address] Potassium [Moles/Vol] 4.2 mmol/L Normal 3.5-5.1 [facility] Comment on above: Performed By: #### L 501.080 #### [facility] [address] [place], [address] Sodium [Moles/Vol] 136 mmol/L Normal 136-145 [facility] Comment on above: Performed By: #### L 501.080 #### [facility] [address] [place], [address] Urea nitrogen [Mass/Vol] 30 mg/dL High 7-18 [facility] Comment on above: Performed By: #### L 501.080 #### [facility] [address] [place], [address] Bedside Glucoseon 11-12-2024 FINGERSTICK GLU 233 mg/dL High 74-106 [facility] Comment on above: Result Comment: CESAR GEMENT OF PATIENT CARE PER NURSING PROTOCOL Performed By: #### L 501.080 #### [facility] [address] [place], [address] FINGERSTICK GLU 328 mg/dL High 74-106 [facility] Comment on above: Result Comment: CESAR GEMENT OF PATIENT CARE PER NURSING PROTOCOL Performed By: #### L 499.0042 #### [facility] [address] [place], [address] FINGERSTICK GLU 206 mg/dL High 74-106 [facility] Comment on above: Result Comment: CESAR GEMENT OF PATIENT CARE PER NURSING PROTOCOL Performed By: #### L 501.080 #### [facility] [address] [place], [address] CBC W/Diff, Automatedon 12-12 03-2023 Absolute Lymph 1.75 X10 3/uL Normal 0.83-4.51 [facility] Comment on above: Performed By: #### L 501.080 #### [facility] [address] [place], [address] Absolute Neut 6.5 X10 3/uL Normal 2.0-7.7 [facility] Comment on above: Performed By: #### L 501.080 #### [facility] [address] [place], [address] Basophils/100 WBC (Bld) 0.6 % Normal 0-1 [facility] Comment on above: Performed By: #### L 501.080 #### [facility] [address] [place], [address] Eosinophils/100 WBC (Bld) 4.3 % Normal 0-5 [facility] Comment on above: Performed By: #### L 501.080 #### [facility] [address] [place], [address] Erythrocyte distribution width (RBC) [Ratio] 13.3 % Normal 11.6-14.6 [facility] Comment on above: Performed By: #### L 501.080 #### [facility] [address] [place], [address] Hematocrit (Bld) [Volume fraction] 28.8 % Low 37-47 [facility] Comment on above: Performed By: #### L 501.080 #### [facility] [address] [place], [address] Hemoglobin (Bld) [Mass/Vol] 8.7 g/dL Low 12.0-15.0 [facility] Comment on above: Performed By: #### L 501.080 #### [facility] [address] [place], [address] IG% 0.900 Normal 0.0-0.9 [facility] Comment on above: Result Comment: IG% - Immature Granulocytes (promyelocytes, myelocytes and metamyelocytes) > 1% indicates that a LEFT SHIFT is Present. Performed By: #### L 501.080 #### [facility] [address] [facility] [place], [address] Lymphocytes/100 WBC (Bld) 18.9 % Low 19-41 [facility] Comment on above: Performed By: #### L 501.080 #### [facility] [address] [place], [address] MCH (RBC) [Entitic mass] 27.8 pg Normal 27.0-32.0 [facility] Comment on above: Performed By: #### L 501.080 #### [facility] [address] [place], [address] MCHC (RBC) [Mass/Vol] 30.2 g/dL Low 32-36 [facility] Comment on above: Performed By: #### L 501.080 #### [facility] Laboratory [address] [place], [address] MCV (RBC) [Entitic vol] 92.0 fL Normal 81-99 [facility] Comment on above: Performed By: #### L 501.080 #### [facility] [address] [place], [address] Monocytes/100 WBC (Bld) 4.9 % Normal 0-10 [facility] Comment on above: Performed By: #### L 501.080 #### [facility] [address] [place], [address] Neutrophils/100 WBC (Bld) 70.4 % High 47-70 [facility] Comment on above: Performed By: #### L 501.080 #### [facility] [address] [place], [address] Nucleated RBC (Bld) [#/Vol] 0.2 10*3/uL Normal 0-5 [facility] Comment on above: Performed By: #### L 501.080 #### [facility] [address] [place], [address] Platelet mean volume (Bld) [Entitic vol] 10.3 fL Normal 6.2-12.0 [facility] Comment on above: Performed By: #### L 501.080 #### [facility] [address] [place], [address] Platelets (Bld) [#/Vol] 261 10*3/uL Normal 150-450 [facility] Comment on above: Performed By: #### L 501.080 #### [facility] [address] [place], [address] RBC (Bld) [#/Vol] 3.13 10*6/uL Low 4.2-5.4 [facility] Comment on above: Performed By: #### L 501.080 #### [facility] [address] [place], [address] RDW SD 45.2 fl High 35.1-43.9 [facility] Comment on above: Performed By: #### L 501.080 #### [facility] [address] [place], [address] WBC (Bld) [#/Vol] 9.2 10*3/uL Normal 4.4-11.0 [facility] Comment on above: Performed By: #### L 501.080 #### [facility] [address] [place], [address] Discharge Instructionon 10-31 Discharge Instruction [facility] Medical Records Department [address] [place] [address] Instructions for Home/Discharge Instructions 11/12/24 1620 MR#: [id number] Acct: [id number] Name: MACARIO WALLACE Rep #: [id number] : 1975 49 From: Ling Neville MD [...] 80 mg tablet 80 mg PO QHS itrgmgxy-ubuu-UV-ca lcium-mins 1 EACH tablet 1 ea PO [...] DO; Dr. Cody Gonzalez MD Signed Normal [facility] Echo Complete W/ Contraston 11-12-2024 Echo Complete W/ Contrast [facility] [address] [place] [address] Echo Complete W/ Contrast 11/12/24 1449 MR#: [id number] Acct: [id number] Name: MACARIO WALLACE Rep #: [id number] : 1975 49 From: Stefano Lebron MD [...] Date Dictated: 11/12/24 1449 Date Transcribed: 11/13/241401 Team Foreman: Signed Normal [facility] Magnesiumon 11-12-2024 Magnesium [Mass/Vol] 2.1 mg/dL Normal 1.6-2.6 [facility] Comment on above: Performed By: #### L 501.080 #### [facility] [address] [place], [address] Phosphoruson 11-12-2024 Phosphate [Mass/Vol] 2.3 mg/dL Low 2.5-4.9 [facility] Comment on above: Performed By: #### L 501.080 #### [facility] [address] [place], [address] Vancomycin, Trough Levelon 1 01-13-2024 VANCO, TROUGH 20.7 ug/mL High 5.0-15.0 [facility] Comment on above: Order Comment: 1200 Result Comment: VANC OMYCIN STANDARED DRUG THERAPY TROUGH LEVEL: 5.0 - 15.0 mg/L VANCOMYCIN HIGH INTENSITY THERAPY TROUGH LEVEL: 15.0 - 20.0 mg/L High Intensity therapy recommended for serious life threatening infections include: - Meningitis -Endocarditis -Pneumonia (Ventilator/Healtcare Associated) -Sepsis PLEASE CONTACT PHARMACY SERVICES (#[phone]) FOR INTERPRETATION OF RESULTS. Performed By: #### L 501.080 #### [facility] [address] [facility] [address] Wound Cultureon 11-12-2024 List Antibiotics Last 48 Hours? vancomycin, zosyn Copy of report sent to Infection Control Printer [id number] 11/12/24 0917 [facility] Meth. resistant Staph. aureus Amount Growth [...] S Vancomycin Islt VIKTOR 1 S Normal [facility] Comment on above: Performed By: #### L 501.080 #### [facility] [address] [facility] [address] Bedside Glucoseon 11-11-2024 FINGERSTICK GLU 127 mg/dL High 74-106 [facility] Comment on above: Result Comment: CESAR GEMENT OF PATIENT CARE PER NURSING PROTOCOL Performed By: #### L 501.080 #### [facility] [address] [facility] [address] FINGERSTICK GLU 156 mg/dL High 74-106 [facility] Comment on above: Result Comment: CESAR GEMENT OF PATIENT CARE PER NURSING PROTOCOL Performed By: #### L 501.080 #### [facility] [address] [place], [address] FINGERSTICK GLU 187 mg/dL High 74-106 [facility] Comment on above: Result Comment: CESAR GEMENT OF PATIENT CARE PER NURSING PROTOCOL Performed By: #### L 499.0042 #### [facility] [address] [place], [address] FINGERSTICK GLU 200 mg/dL High 74-106 [facility] Comment on above: Result Comment: CESAR GEMENT OF PATIENT CARE PER NURSING PROTOCOL Performed By: #### L 9000.0800 #### [facility] [address] [place], [address] CBC W/Diff, Automatedon 12 Absolute Lymph 1.71 X10 3/uL Normal 0.83-4.51 [facility] Comment on above: Performed By: #### L 9000.0800 #### [facility] [address] [place], [address] Absolute Neut 12.3 X10 3/uL High 2.0-7.7 [facility] Comment on above: Performed By: #### L 9000.0800 #### [facility] [address] [place], [address] Basophils/100 WBC (Bld) 0.5 % Normal 0-1 [facility] Comment on above: Performed By: #### L 9000.0800 #### [facility] [address] [place], [address] Eosinophils/100 WBC (Bld) 2.5 % Normal 0-5 [facility] Comment on above: Performed By: #### L 9000.0800 #### [facility] [address] [place], [address] Erythrocyte distribution width (RBC) [Ratio] 13.4 % Normal 11.6-14.6 [facility] Comment on above: Performed By: #### L 9000.0800 #### [facility] [address] [place], [address] Hematocrit (Bld) [Volume fraction] 30.3 % Low 37-47 [facility] Comment on above: Performed By: #### L 9000.0800 #### [facility] [address] [place], [address] Hemoglobin (Bld) [Mass/Vol] 9.0 g/dL Low 12.0-15.0 [facility] Comment on above: Performed By: #### L 9000.0800 #### [facility] [address] [place], [address] IG% 0.500 Normal 0.0-0.9 [facility] Comment on above: Result Comment: IG% - Immature Granulocytes (promyelocytes, myelocytes and metamyelocytes) > 1% indicates that a LEFT SHIFT is Present. Performed By: #### L 9000.0800 #### [facility] [address] [place], [address] Lymphocytes/100 WBC (Bld) 11.2 % Low 19-41 [facility] Comment on above: Performed By: #### L 9000.0800 #### [facility] [address] [place], [address] MCH (RBC) [Entitic mass] 27.8 pg Normal 27.0-32.0 [facility] Comment on above: Performed By: #### L 9000.0800 #### [facility] [address] [place], [address] MCHC (RBC) [Mass/Vol] 29.7 g/dL Low 32-36 [facility] Comment on above: Performed By: #### L 9000.0800 #### [facility] [address] [place], [address] MCV (RBC) [Entitic vol] 93.5 fL Normal 81-99 [facility] Comment on above: Performed By: #### L 9000.0800 #### [facility] [address] [place], [address] Monocytes/100 WBC (Bld) 4.9 % Normal 0-10 [facility] Comment on above: Performed By: #### L 9000.0800 #### [facility] [address] [place], [address] Neutrophils/100 WBC (Bld) 80.4 % High 47-70 [facility] Comment on above: Performed By: #### L 9000.0800 #### [facility] [address] [place], [address] Nucleated RBC (Bld) [#/Vol] 0 10*3/uL Normal 0-5 [facility] Comment on above: Performed By: #### L 9000.0800 #### [facility] [address] [place], [address] Platelet mean volume (Bld) [Entitic vol] 9.9 fL Normal 6.2-12.0 [facility] Comment on above: Performed By: #### L 9000.0800 #### [facility] [address] [place], [address] Platelets (Bld) [#/Vol] 256 10*3/uL Normal 150-450 [facility] Comment on above: Performed By: #### L 9000.0800 #### [facility] [address] [place], [address] RBC (Bld) [#/Vol] 3.24 10*6/uL Low 4.2-5.4 [facility] Comment on above: Performed By: #### L 9000.0800 #### [facility] [address] [place], [address] RDW SD 46.0 fl High 35.1-43.9 [facility] Comment on above: Performed By: #### L 9000.0800 #### [facility] [address] [place], [address] WBC (Bld) [#/Vol] 15.3 10*3/uL High 4.4-11.0 [facility] Comment on above: Performed By: #### L 9000.0800 #### [facility] [address] [place], [address] Comprehensive Metabolic Prof ilon 11-11-2024 Albumin [Mass/Vol] 2.7 g/dL Low 3.2-5.0 [facility] Comment on above: Performed By: #### L 9000.0800 #### [facility] [address] [place], [address] Albumin/Globulin [Mass ratio] 0.6 {ratio} Low 0.9-2.4 [facility] Comment on above: Performed By: #### L 9000.0800 #### [facility] [address] [place], [address] ALK P 62 U/L Normal 45-117 [facility] Comment on above: Performed By: #### L 9000.0800 #### [facility] [address] [place], [address] ALT [Catalytic activity/Vol] 17 U/L Normal 13-56 [facility] Comment on above: Performed By: #### L 9000.0800 #### [facility] [address] [place], [address] AST [Catalytic activity/Vol] 18 U/L Normal 15-37 [facility] Comment on above: Performed By: #### L 9000.0800 #### [facility] [address] [place], [address] Bilirubin [Mass/Vol] 0.30 mg/dL Normal 0.20-1.00 [facility] Comment on above: Result Comment: For patients on eltrombopag therapy, use of Dimension [place] TBIL is not recommended. Performed By: #### L 9000.0800 #### [facility] [address] [place], [address] BUN/CRE 28.4 RATIO High 10-20 [facility] Comment on above: Performed By: #### L 9000.0800 #### [facility] [address] [place], [address] CA,Total 8.1 mg/dL Low 8.5-10.1 [facility] Comment on above: Performed By: #### L 9000.0800 #### [facility] [address] [place], [address] Chloride [Moles/Vol] 95 mmol/L Low 98-107 [facility] Comment on above: Performed By: #### L 9000.0800 #### [facility] [address] [place], [address] CO2 [Moles/Vol] 35.0 mmol/L High 21.0-32.0 [facility] Comment on above: Performed By: #### L 9000.0800 #### [facility] [address] [place], [address] Creatinine [Mass/Vol] 1.41 mg/dL High 0.55-1.02 [facility] Comment on above: Result Comment: The validity of the calculated GFR GFRAA in patients over 70 years has not been determined. Clinical correlation is essential. Performed By: #### L 9000.0800 #### [facility] [address] [place], [address] ECRCL 80.95 ml/min Normal [facility] Comment on above: Performed By: #### L 9000.0800 #### [facility] [address] [place], [address] EST GFR - AA 51 mL/min Low >60 [facility] Comment on above: Result Comment: Afri can [place] GFR Calc Performed By: #### L 9000.0800 #### [facility] [address] [place], [address] GAP 3 Low 5-15 [facility] Comment on above: Performed By: #### L 9000.0800 #### [facility] [address] [place], [address] GFR/1.73 sq M.predicted among non-blacks MDRD (S/P/Bld) [Vol rate/Area] 42 mL/min/{1.73_m2} Low >60 [facility] Comment on above: Result Comment: Non- GFR Calc Performed By: #### L 9000.0800 #### [facility] [address] [place], [address] Globulin (S) [Mass/Vol] 4.4 g/dL High 2.2-4.2 [facility] Comment on above: Performed By: #### L 9000.0800 #### [facility] [address] [place], [address] Glucose [Mass/Vol] 197 mg/dL High 74-106 [facility] Comment on above: Result Comment: Fast ing Glucose result greater than or equal to 126 mg/dL suggests DIABETES MELLITUS per A.D.A. criteria. Performed By: #### L 9000.0800 #### [facility] [address] [place], [address] Potassium [Moles/Vol] 4.3 mmol/L Normal 3.5-5.1 [facility] Comment on above: Performed By: #### L 9000.0800 #### [facility] [address] [place], [address] Sodium [Moles/Vol] 134 mmol/L Low 136-145 [facility] Comment on above: Performed By: #### L 9000.0800 #### [facility] [address] [place], [address] T PROT 7.1 g/dL Normal 6.4-8.2 [facility] Comment on above: Performed By: #### L 9000.0800 #### [facility] [address] [place], [address] Urea nitrogen [Mass/Vol] 40 mg/dL High 7-18 [facility] Comment on above: Performed By: #### L 9000.0800 #### [facility] [address] [place], [address] Consultation - Infectious Dx on 11-11-2024 Consultation - Infectious Dx [facility] Medical Records Department [address] [place] [address] Consultation - Infectious Dx 11/11/24 [facility] MR#: [id number] Acct: [id number] Name: MACARIO WALLACE Rep #: [id number] : 1975 49 From: Cody Gonzalez MD PCP: Dr. Delmy Solorzano MD Status:ADM IN Location: ICU [id number] Assessment Plan Assessment/Plan (1) Acute on chronic [...] performed and neg except as noted above. [facility] Medical History Arthritis Non-smoker CHF (congestive [...] #60 TABLE (more content not included)... Normal [facility] Magnesiumon 11-11-2024 Magnesium [Mass/Vol] 2.4 mg/dL Normal 1.6-2.6 [facility] Comment on above: Performed By: #### L 9000.0800 #### [facility] [place], [address] Phosphoruson 11-11-2024 Phosphate [Mass/Vol] 3.6 mg/dL Normal 2.5-4.9 [facility] Comment on above: Performed By: #### L 9000.0800 #### [facility] [address] [place], [address] BNP,B-Type NATRIURETIC PEPTI Robb 11-10-2024 Natriuretic peptide B (Bld) [Mass/Vol] 20.5 pg/mL Normal 0-100 [facility] Comment on above: Performed By: #### L 501.080 #### [facility] [address] [place], [address] Bedside Glucoseon 11-10-2024 FINGERSTICK GLU 200 mg/dL High -106 [facility] Comment on above: Result Comment: CESAR GEMENT OF PATIENT CARE PER NURSING PROTOCOL Performed By: #### L 499.0042 #### [facility] [address] [place], [address] FINGERSTICK GLU 226 mg/dL High [address] [place] [address] Comment on above: Result Comment: CESAR GEMENT OF PATIENT CARE PER NURSING PROTOCOL Performed By: #### L 501.080 #### [facility] [address] [place], [address] FINGERSTICK GLU 187 mg/dL High [address] [place] [address] Comment on above: Result Comment: CESAR GEMENT OF PATIENT CARE PER NURSING PROTOCOL Performed By: #### L 501.080 #### [facility] [address] [place], [address] FINGERSTICK GLU 309 mg/dL High [address] [place] [address] Comment on above: Result Comment: CESAR GEMENT OF PATIENT CARE PER NURSING PROTOCOL Performed By: #### L 501.080 #### [facility] [address] [place], [address] FINGERSTICK GLU 417 mg/dL High [address] [place] [address] Comment on above: Result Comment: CESAR OLEARY OF PATIENT CARE PER NURSING PROTOCOL Performed By: #### L 501.080 #### [facility] [address] [place], [address] Blood Gases by [facility] 024 Base excess Calc (Bld) [Moles/Vol] 10 mmol/L High -2 to +2 [facility] Comment on above: Performed By: #### L 501.080 #### [facility] [address] [place], [address] Blood Gas Type ART Normal [facility] Comment on above: Performed By: #### L 501.080 #### [facility] [address] [place], [address] CO2 [Moles/Vol] 38 mmol/L Normal [facility] Comment on above: Performed By: #### L 501.080 #### [facility] [address] [place], [address] Comment AVAPS 25 10 Normal [facility] Comment on above: Performed By: #### L 501.080 #### [facility] [address] [place], [address] FI02 50.0 Normal [facility] Comment on above: Performed By: #### L 501.080 #### [facility] [address] [place], [address] HCO3 (Bld) [Moles/Vol] 35.5 mmol/L High 22-26 [facility] Comment on above: Performed By: #### L 501.080 #### [facility] [address] [place], [address] Mode Not entered Normal [facility] Comment on above: Performed By: #### L 501.080 #### [facility] [address] [place], [address] O2 Delivery Dev BiPAP [facility] Comment on above: Performed By: #### L 501.080 #### [facility] [address] [place], [address] pCO2 67.1 mmHg Invalid Interpretation Code 35-45 [facility] Comment on above: Performed By: #### L 501.080 #### [facility] [address] [place], [address] PEEP 8 Normal [facility] Comment on above: Performed By: #### L 501.080 #### [facility] [address] [place], [address] pH (Bld) 7.33 [pH] Low 7.35-7.45 [facility] Comment on above: Performed By: #### L 501.080 #### [facility] [address] [place], [address] PO2 143 mmHG High 75-100 [facility] Comment on above: Performed By: #### L 501.080 #### [facility] [address] [place], [address] Read Back By Yes [facility] Comment on above: Performed By: #### L 501.080 #### [facility] [address] [place], [address] Results To FADI [facility] Comment on above: Performed By: #### L 501.080 #### [facility] [address] [place], [address] RR 12 Normal [facility] Comment on above: Performed By: #### L 501.080 #### [facility] [address] [place], [address] SITE R Brach Normal [facility] Comment on above: Performed By: #### L 501.080 #### [facility] [address] [place], [address] SO2 99 Normal 95-99 [facility] Comment on above: Performed By: #### L 501.080 #### [facility] [address] [place], [address] Time Given 11:58:12 Normal [facility] Comment on above: Performed By: #### L 501.080 #### [facility] [address] [place], [address] Vt 500.0 mL Normal [facility] Comment on above: Performed By: #### L 501.080 #### [facility] [address] [place], [address] CBC W/Diff, Automatedon 12- Absolute Lymph 2.08 X10 3/uL Normal 0.83-4.51 [facility] Comment on above: Performed By: #### L 501.080 #### [facility] [address] [place], [address] Absolute Neut 16.7 X10 3/uL High 2.0-7.7 [facility] Comment on above: Performed By: #### L 501.080 #### [facility] [address] [place], [address] Basophils/100 WBC (Bld) 0.5 % Normal 0-1 [facility] Comment on above: Performed By: #### L 501.080 #### [facility] [address] [place], [address] Eosinophils/100 WBC (Bld) 0.4 % Normal 0-5 [facility] Comment on above: Performed By: #### L 501.080 #### [facility] [address] [place], [address] Erythrocyte distribution width (RBC) [Ratio] 13.4 % Normal 11.6-14.6 [facility] Comment on above: Performed By: #### L 501.080 #### [facility] [address] [place], [address] Hematocrit (Bld) [Volume fraction] 31.6 % Low 37-47 [facility] Comment on above: Performed By: #### L 501.080 #### [facility] [address] [place], [address] Hemoglobin (Bld) [Mass/Vol] 9.5 g/dL Low 12.0-15.0 [facility] Comment on above: Performed By: #### L 501.080 #### [facility] [address] [place], [address] IG% 0.900 Normal 0.0-0.9 [facility] Comment on above: Result Comment: IG% - Immature Granulocytes (promyelocytes, myelocytes and metamyelocytes) > 1% indicates that a LEFT SHIFT is Present. Performed By: #### L 501.080 #### [facility] [address] [place], [address] Lymphocytes/100 WBC (Bld) 10.2 % Low 19-41 [facility] Comment on above: Performed By: #### L 501.080 #### [facility] [address] [place], [address] MCH (RBC) [Entitic mass] 27.7 pg Normal 27.0-32.0 [facility] Comment on above: Performed By: #### L 501.080 #### [facility] [address] [place], [address] MCHC (RBC) [Mass/Vol] 30.1 g/dL Low 32-36 [facility] Comment on above: Performed By: #### L 501.080 #### [facility] [address] [place], [address] MCV (RBC) [Entitic vol] 92.1 fL Normal 81-99 [facility] Comment on above: Performed By: #### L 501.080 #### [facility] [address] [place], [address] Monocytes/100 WBC (Bld) 5.6 % Normal 0-10 [facility] Comment on above: Performed By: #### L 501.080 #### [facility] [address] [place], [address] Neutrophils/100 WBC (Bld) 82.4 % High 47-70 [facility] Comment on above: Performed By: #### L 501.080 #### [facility] [address] [place], [address] Nucleated RBC (Bld) [#/Vol] 0 10*3/uL Normal 0-5 [facility] Comment on above: Performed By: #### L 501.080 #### [facility] [address] [place], [address] Platelet mean volume (Bld) [Entitic vol] 10.1 fL Normal 6.2-12.0 [facility] Comment on above: Performed By: #### L 501.080 #### [facility] [address] [place], [address] Platelets (Bld) [#/Vol] 263 10*3/uL Normal 150-450 [facility] Comment on above: Performed By: #### L 501.080 #### [facility] [address] [place], [address] RBC (Bld) [#/Vol] 3.43 10*6/uL Low 4.2-5.4 [facility] Comment on above: Performed By: #### L 501.080 #### [facility] [address] [place], [address] RDW SD 45.4 fl High 35.1-43.9 [facility] Comment on above: Performed By: #### L 501.080 #### [facility] [address] [place], [address] WBC (Bld) [#/Vol] 20.3 10*3/uL High 4.4-11.0 [facility] Comment on above: Performed By: #### L 501.080 #### [facility] [address] [place], [address] Comprehensive Metabolic Prof ilon 11-10-2024 Albumin [Mass/Vol] 2.8 g/dL Low 3.2-5.0 [facility] Comment on above: Performed By: #### L 501.080 #### [facility] [address] [place], [address] Albumin/Globulin [Mass ratio] 0.7 {ratio} Low 0.9-2.4 [facility] Comment on above: Performed By: #### L 501.080 #### [facility] [address] [place], [address] ALK P 74 U/L Normal 45-117 [facility] Comment on above: Performed By: #### L 501.080 #### [facility] [address] [place], [address] ALT [Catalytic activity/Vol] 17 U/L Normal 13-56 [facility] Comment on above: Performed By: #### L 501.080 #### [facility] [facility] [address] [place], [address] AST [Catalytic activity/Vol] 12 U/L Low 15-37 [facility] Comment on above: Performed By: #### L 501.080 #### [facility] [address] [place], [address] Bilirubin [Mass/Vol] 0.40 mg/dL Normal 0.20-1.00 [facility] Comment on above: Result Comment: For patients on eltrombopag therapy, use of Dimension [place] TBIL is not recommended. Performed By: #### L 501.080 #### [facility] [address] [place], [address] BUN/CRE 27.5 RATIO High 10-20 [facility] Comment on above: Performed By: #### L 501.080 #### [facility] [address] [place], [address] CA,Total 8.4 mg/dL Low 8.5-10.1 [facility] Comment on above: Performed By: #### L 501.080 #### [facility] [address] [place], [address] Chloride [Moles/Vol] 94 mmol/L Low 98-107 [facility] Comment on above: Performed By: #### L 501.080 #### [facility] [address] [place], [address] CO2 [Moles/Vol] 33.0 mmol/L High 21.0-32.0 [facility] Comment on above: Performed By: #### L 501.080 #### [facility] [address] [place], [address] Creatinine [Mass/Vol] 1.20 mg/dL High 0.55-1.02 [facility] Comment on above: Result Comment: The validity of the calculated GFR GFRAA in patients over 70 years has not been determined. Clinical correlation is essential. Performed By: #### L 501.080 #### [facility] [address] [place], [address] ECRCL 95.12 ml/min Normal [facility] Comment on above: Performed By: #### L 501.080 #### [facility] [address] [place], [address] EST GFR - AA 62 mL/min Normal >60 [facility] Comment on above: Result Comment: Afri can [place] GFR Calc Performed By: #### L 501.080 #### [facility] [address] [place], [address] GAP 5 Normal 5-15 [facility] Comment on above: Performed By: #### L 501.080 #### [facility] [address] [place], [address] GFR/1.73 sq M.predicted among non-blacks MDRD (S/P/Bld) [Vol rate/Area] 51 mL/min/{1.73_m2} Low >60 [facility] Comment on above: Result Comment: Non- GFR Calc Performed By: #### L 501.080 #### [facility] [address] [place], [address] Globulin (S) [Mass/Vol] 4.2 g/dL Normal 2.2-4.2 [facility] Comment on above: Performed By: #### L 501.080 #### [facility] [address] [place], [address] Glucose [Mass/Vol] 321 mg/dL High 74-106 [facility] Comment on above: Result Comment: Gluc ose result greater than or equal to 200 mg/dL suggests DIABETES MELLITUS per A.D.A. criteria. Performed By: #### L 501.080 #### [facility] [address] [place], [address] Potassium [Moles/Vol] 4.0 mmol/L Normal 3.5-5.1 [facility] Comment on above: Performed By: #### L 501.080 #### [facility] [address] [place], [address] Sodium [Moles/Vol] 132 mmol/L Low 136-145 [facility] Comment on above: Performed By: #### L 501.080 #### [facility] [address] [place], [address] T PROT 7.0 g/dL Normal 6.4-8.2 [facility] Comment on above: Performed By: #### L 501.080 #### [facility] [address] [place], [address] Urea nitrogen [Mass/Vol] 33 mg/dL High 7-18 [facility] Comment on above: Performed By: #### L 501.080 #### [facility] [address] [place], [address] Gram Stainon 11-10-2024 GS List Antibiotics Last 48 Hours? vancomycin, zosyn Gram Stain Rare Gram positive cocci Rare White Blood Cells No Epithelial cells Normal [facility] Comment on above: Performed By: #### L 501.080 #### [facility] [address] [place], [address] Hemoglobin A1con 11-10-2024 HbA1c (Bld) [Mass fraction] 10.4 % High 3.8-5.6 [facility] Comment on above: Result Comment: Norm al < 5.7 % Prediabetic 5.7 - 6.4 % Diabetic >or= 6.5 % Please note range changes. Performed By: #### L 501.080 #### [facility] [address] [place], [address] Lactic Acidon 11-10-2024 Lactate [Moles/Vol] 1.1 mmol/L Normal 0.4-1.9 [facility] Comment on above: Performed By: #### L 509.7001 #### [facility] [address] [place], [address] Legionella Antigen Urineon 1 01-11-2024 LEGU Legionella [...] final has been changed. 11/12/2435 by JENNIFER [facility] Comment on above: Performed By: #### L 400.0001 #### [facility] [address] [facility] [place], [address] M100.678on 11-10-2024 M100.678 Pending SARS-CoV-2 (COVID 19) Negative INFLUENZA A Negative INFLUENZA B Negative RSV PCR Negative [facility] Comment on above: Performed By: #### L 501.080 #### [facility] [address] [place], [address] M8200.1075on 11-10-2024 M8200.1075 MRSA/SAUR WOUND PCR Copy [...] final has been changed. 11/10/24 0736 [facility] Comment on above: Performed By: #### L 501.080 #### [facility] [address] [place], [address] RESPIRATORY PANEL MOLECULARo n 11-10-2024 RP PANEL ADENOVIRUS Not Detected INFLUENZA A Not Detected INFLUENZA A (SUBTYPE H1) Not Detected INFLUENZA A (SUBTYPE H3) Not Detected INFLUENZA B Not Detected HUMAN METAPHNEUMO Not Detected PARAINFLUENZA 1 Not Detected PARAINFLUENZA 2 Not Detected PARAINFLUENZA 3 Not Detected PARAINFLUENZA 4 Not Detected RHINOVIRUS Not Detected RSV A Not Detected RSV B Not Detected Normal [facility] Comment on above: Performed By: #### L 400.0001 #### [facility] [address] [place], [place], [address] Strep pneumoniae Antig(UR,CS F)on 11-10-2024 STPAG URINE [...] 0835 by JENNIFER Previously reported as: Normal [facility] Comment on above: Performed By: #### L 400.0001 #### [facility] [address] [place], [address] Acetone Serumon 11-09-2024 ACETONE SERUM Negative Normal NEG [facility] Comment on above: Performed By: #### L 509.7001 #### [facility] [address] [place], [address] Blood Gases by CPSon 024 ANIL TEST N/A Normal [facility] Comment on above: Performed By: #### L 9000.0800 #### [facility] [address] [place], [address] Base excess Calc (Bld) [Moles/Vol] 9 mmol/L High -2 to +2 [facility] Comment on above: Performed By: #### L 9000.0800 #### [facility] [address] [place], [address] Blood Gas Type ART [facility] Comment on above: Performed By: #### L 0.0800 #### [facility] [address] [place], [address] CO2 [Moles/Vol] 37 mmol/L Normal [facility] Comment on above: Performed By: #### L 9000.0800 #### [facility] [address] [place], [address] FI02 6.0 Normal [facility] Comment on above: Performed By: #### L 0.0800 #### [facility] [address] [place], [address] HCO3 (Bld) [Moles/Vol] 34.9 mmol/L High 22-26 [facility] Comment on above: Performed By: #### L 9000.0800 #### [facility] [address] [place], [address] Mode Not entered Normal [facility] Comment on above: Performed By: #### L 9000.0800 #### [facility] [address] [place], [address] O2 Delivery Dev Cannula Normal [facility] Comment on above: Performed By: #### L 8999.0800 #### [facility] [address] [place], [address] pCO2 65.2 mmHg High 35-45 [facility] Comment on above: Performed By: #### L 0.0800 #### [facility] [address] [place], [address] pH (Bld) 7.34 [pH] Low 7.35-7.45 [facility] Comment on above: Performed By: #### L 9000.0800 #### [facility] [address] [place], [address] PO2 88 mmHG Normal 75-100 [facility] Comment on above: Performed By: #### L 9000.0800 #### [facility] [address] [place], [address] SITE L Radial Normal [facility] Comment on above: Performed By: #### L 9000.0800 #### [facility] [address] [place], [address] SO2 96 Normal 95-99 [facility] Comment on above: Performed By: #### L 9000.0800 #### [facility] [address] [place], [address] CBC W/Diff, Automatedon 12-1 0-2024 Absolute Lymph 1.98 X10 3/uL Normal 0.83-4.51 [facility] Comment on above: Performed By: #### L 509.7001 #### [facility] [address] [place], [address] Absolute Neut 16.8 X10 3/uL High 2.0-7.7 [facility] Comment on above: Performed By: #### L 509.7001 #### [facility] [address] [place], [address] Basophils/100 WBC (Bld) 0.5 % Normal 0-1 [facility] Comment on above: Performed By: #### L 509.7000 #### [facility] [address] [place], [address] Eosinophils/100 WBC (Bld) 0.2 % Normal 0-5 [facility] Comment on above: Performed By: #### L 509.7001 #### [facility] [address] [place], [address] Erythrocyte distribution width (RBC) [Ratio] 13.5 % Normal 11.6-14.6 [facility] Comment on above: Performed By: #### L 509.7001 #### [facility] [address] [place], [address] Hematocrit (Bld) [Volume fraction] 31.3 % Low 37-47 [facility] Comment on above: Performed By: #### L 509.7001 #### [facility] [address] [place], [address] Hemoglobin (Bld) [Mass/Vol] 9.9 g/dL Low 12.0-15.0 [facility] Comment on above: Performed By: #### L 509.7001 #### [facility] [address] [place], [address] IG% 1.000 High 0.0-0.9 [facility] Comment on above: Result Comment: IG% - Immature Granulocytes (promyelocytes, myelocytes and metamyelocytes) > 1% indicates that a LEFT SHIFT is Present. Performed By: #### L 509.7001 #### [facility] [address] [place], [address] Lymphocytes/100 WBC (Bld) 9.8 % Low 19-41 [facility] Comment on above: Performed By: #### L 509.7001 #### [facility] [address] [place], [address] MCH (RBC) [Entitic mass] 28.4 pg Normal 27.0-32.0 [facility] Comment on above: Performed By: #### L 509.7001 #### [facility] [address] [place], [address] MCHC (RBC) [Mass/Vol] 31.6 g/dL Low 32-36 [facility] Comment on above: Performed By: #### L 509.7001 #### [facility] [address] [place], [address] MCV (RBC) [Entitic vol] 89.9 fL Normal 81-99 [facility] Comment on above: Performed By: #### L 509.7001 #### [facility] [address] [place], [address] Monocytes/100 WBC (Bld) 5.3 % Normal 0-10 [facility] Comment on above: Performed By: #### L 509.7001 #### [facility] [address] [place], [address] Neutrophils/100 WBC (Bld) 83.2 % High 47-70 [facility] Comment on above: Performed By: #### L 509.7001 #### [facility] [address] [place], [address] Nucleated RBC (Bld) [#/Vol] 0 10*3/uL Normal 0-5 [facility] Comment on above: Performed By: #### L 509.7001 #### [facility] [address] [place], [address] Platelet mean volume (Bld) [Entitic vol] 10.2 fL Normal 6.2-12.0 [facility] Comment on above: Performed By: #### L 509.7001 #### [facility] [address] [place], [address] Platelets (Bld) [#/Vol] 280 10*3/uL Normal 150-450 [facility] Comment on above: Performed By: #### L 509.7001 #### [facility] [address] [place], [address] RBC (Bld) [#/Vol] 3.48 10*6/uL Low 4.2-5.4 [facility] Comment on above: Performed By: #### L 509.7001 #### [facility] [address] [place], [address] RDW SD 44.3 fl High 35.1-43.9 [facility] Comment on above: Performed By: #### L 509.7001 #### [facility] [address] [place], [address] WBC (Bld) [#/Vol] 20.2 10*3/uL High 4.4-11.0 [facility] Comment on above: Performed By: #### L 509.7001 #### [facility] [address] [place], [address] Chest 1 View (Portable)on Chest 1 View (Portable) [facility] Imaging Services [address] [place] [address] Chest 1 View (Portable) MR#: [id number] Acct: [id number] Name: MACARIO WALLACE Rep #: [id number] : 1975 F 49 From: Gilbert Jameson DO PCP: Dr. Delmy Solorzano MD Status: [facility] ER Study: Chest 1 View (Portable) Date of Exam: 11/09/24 Exam# [id number] Ordering Dr: Faraz Flores DO -[id number] INDICATION: SOB EXAMINATION/TECHNIQ UE: X-RAY - [...] Delmy Solorzano MD; Dr. Faraz Flores DO Team Foreman: Signed Normal [facility] Comprehensive Metabolic Prof ilon 11-09-2024 Albumin [Mass/Vol] 3.0 g/dL Low 3.2-5.0 [facility] Comment on above: Order Comment: 'TROP ' Serial specimen #1, #2 or #3: 1 Performed By: #### L 509.7001 #### [facility] [address] [place], [address] Albumin/Globulin [Mass ratio] 0.7 {ratio} Low 0.9-2.4 [facility] Comment on above: Order Comment: 'TROP ' Serial specimen #1, #2 or #3: 1 Performed By: #### L 509.7001 #### [facility] [address] [place], [address] ALK P 94 U/L Normal 45-117 [facility] Comment on above: Order Comment: 'TROP ' Serial specimen #1, #2 or #3: 1 Performed By: #### L 509.7001 #### [facility] [address] [place], [address] ALT [Catalytic activity/Vol] 21 U/L Normal 13-56 [facility] Comment on above: Order Comment: 'TROP ' Serial specimen #1, #2 or #3: 1 Performed By: #### L 509.7001 #### [facility] [address] [place], [address] AST [Catalytic activity/Vol] 18 U/L Normal 15-37 [facility] Comment on above: Order Comment: 'TROP ' Serial specimen #1, #2 or #3: 1 Performed By: #### L 509.7001 #### [facility] [address] [place], [address] Bilirubin [Mass/Vol] 0.30 mg/dL Normal 0.20-1.00 [facility] Comment on above: Order Comment: 'TROP ' Serial specimen #1, #2 or #3: 1 Result Comment: For patients on eltrombopag therapy, use of Dimension [place] TBIL is not recommended. Performed By: #### L 509.7001 #### [facility] [address] [place], [address] BUN/CRE 25.6 RATIO High 10-20 [facility] Comment on above: Order Comment: 'TROP ' Serial specimen #1, #2 or #3: 1 Performed By: #### L 509.7001 #### [facility] [address] [place], [address] CA,Total 8.9 mg/dL Normal 8.5-10.1 [facility] Comment on above: Order Comment: 'TROP ' Serial specimen #1, #2 or #3: 1 Performed By: #### L 509.7001 #### [facility] [address] [place], [address] Chloride [Moles/Vol] 89 mmol/L Low 98-107 [facility] Comment on above: Order Comment: 'TROP ' Serial specimen #1, #2 or #3: 1 Performed By: #### L 509.7001 #### [facility] [address] [place], [address] CO2 [Moles/Vol] 31.0 mmol/L Normal 21.0-32.0 [facility] Comment on above: Order Comment: 'TROP ' Serial specimen #1, #2 or #3: 1 Performed By: #### L 509.7001 #### [facility] [address] [place], [address] Creatinine [Mass/Vol] 1.33 mg/dL High 0.55-1.02 [facility] Comment on above: Order Comment: 'TROP ' Serial specimen #1, #2 or #3: 1 Result Comment: The validity of the calculated GFR GFRAA in patients over 70 years has not been determined. Clinical correlation is essential. Performed By: #### L 509.7001 #### [facility] [address] [place], [address] ECRCL 85.69 ml/min Normal [facility] Comment on above: Order Comment: 'TROP ' Serial specimen #1, #2 or #3: 1 Performed By: #### L 509.7001 #### [facility] [address] [place], [address] EST GFR - AA 55 mL/min Low >60 [facility] Comment on above: Order Comment: 'TROP ' Serial specimen #1, #2 or #3: 1 Result Comment: Afri can [place] GFR Calc Performed By: #### L 509.7001 #### [facility] [address] [place], [address] GAP 8 Normal 5-15 [facility] Comment on above: Order Comment: 'TROP ' Serial specimen #1, #2 or #3: 1 Performed By: #### L 509.7001 #### [facility] [address] [place], [address] GFR/1.73 sq M.predicted among non-blacks MDRD (S/P/Bld) [Vol rate/Area] 45 mL/min/{1.73_m2} Low >60 [facility] Comment on above: Order Comment: 'TROP ' Serial specimen #1, #2 or #3: 1 Result Comment: Non- GFR Calc Performed By: #### L 509.7004 #### [facility] [address] [place], [address] Globulin (S) [Mass/Vol] 4.3 g/dL High 2.2-4.2 [facility] Comment on above: Order Comment: 'TROP ' Serial specimen #1, #2 or #3: 1 Performed By: #### L 509.7001 #### [facility] [address] [place], [address] Glucose [Mass/Vol] 429 mg/dL High 74-106 [facility] Comment on above: Order Comment: 'TROP ' Serial specimen #1, #2 or #3: 1 Result Comment: Gluc ose result greater than or equal to 200 mg/dL suggests DIABETES MELLITUS per A.D.A. criteria. Performed By: #### L 509.7001 #### [facility] [address] [place], [address] Potassium [Moles/Vol] 4.0 mmol/L Normal 3.5-5.1 [facility] Comment on above: Order Comment: 'TROP ' Serial specimen #1, #2 or #3: 1 Performed By: #### L 509.7001 #### [facility] [address] [place], [address] Sodium [Moles/Vol] 129 mmol/L Low 136-145 [facility] Comment on above: Order Comment: 'TROP ' Serial specimen #1, #2 or #3: 1 Performed By: #### L 509.7001 #### [facility] [address] [place], [address] T PROT 7.3 g/dL Normal 6.4-8.2 [facility] Comment on above: Order Comment: 'TROP ' Serial specimen #1, #2 or #3: 1 Performed By: #### L 509.7001 #### [facility] [address] [place], [address] Urea nitrogen [Mass/Vol] 34 mg/dL High 7-18 [facility] Comment on above: Order Comment: 'TROP ' Serial specimen #1, #2 or #3: 1 Performed By: #### L 509.7001 #### [facility] [address] [place], [address] Emergency Department Summary on 11-09-2024 Emergency Department Summary [facility] Medical Records Department [address] [place] [address] Emergency Department Summary 11/09/24 MR#: [id number] Acct: [id number] Name: MACARIO WALLACE Rep #: [id number] : 1975 49 From: Faraz Flores DO [...] Recent surgery or Recent travel [facility] Medical History Arthritis Non-smoker CHF (congestive heart [...] (Ozempic) m (more content not included)... Normal [facility] H AND P Exam - [facility] 11-09-2024 H&P Exam - Hospitalist [facility] Medical Records Department [address] [place] [address] H P Exam - Hospitalist 11/09/24 2300 MR#: [id number] Acct: [id number] Name: MACARIO WALLACE Rep #: [id number] : 1975 49 From: Olamide Mas MD PCP: Dr. 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 [facility] Medical History Arthritis Non-smoker CHF (congestive [...] cholesterol 03/ (more content not included)... Normal [facility] L501.4020on 11-09-2024 TROPONIN-I HS 33 pg/mL Normal 3.0-54.0 [facility] Comment on above: Order Comment: 'TROP ' Serial specimen #1, #2 or #3: 1 Result Comment: Lindy lopez Note: New Test Units and Gender Specific Reference Ranges. For more information see Policy Stat Procedure [place] High Sensitivity Troponin (TNIH) and attachments. Performed By: #### L 509.7002 #### [facility] [address] [place], [address] Lactic Acidon 11-09-2024 Lactate [Moles/Vol] 2.3 mmol/L Invalid Interpretation Code 0.4-1.9 [facility] Comment on above: Order Comment: Y Result Comment: Crit ical Result(s) Called at: 20:46:06 11/09/2024 by: YVROSE MARTINEZ TO DAPHNEY SANCHEZ. Results read back by same. Performed By: #### L 509.7001 #### [facility] [address] [place], [address] Magnesiumon 11-09-2024 Magnesium [Mass/Vol] 1.1 mg/dL Low 1.6-2.6 [facility] Comment on above: Order Comment: Comme nts: May add to ED labsComments: may add to ED labs Performed By: #### L 499.0043 #### [facility] [address] [place], [address] Partial Thromboplast Timeon 11-09-2024 aPTT Coag (Bld) [Time] 40.9 s High 24.1-36.2 [facility] Comment on above: Performed By: #### L 509.7001 #### [facility] [address] [place], [address] Phosphoruson 11-09-2024 Phosphate [Mass/Vol] 2.3 mg/dL Low 2.5-4.9 [facility] Comment on above: Order Comment: Comme nts: May add to ED labsComments: may add to ED labs Performed By: #### L 499.0043 #### [facility] [address] [place], [address] Procalcitoninon 11-09-2024 Procalcitonin 0.27 ng/mL High 0.00-0.09 [facility] Comment on above: Result Comment: A [...] obtained. Performed By: #### L 499.0043 #### [facility] [address] [place], [address] Prothrombin Time w/INRon INR Coag (PPP) [Relative time] 1.5 {INR} Normal [facility] Comment on above: Performed By: #### L 509.7001 #### [facility] [address] [place], [address] PT Coag (PPP) [Time] 17.9 s High 11.7-14.9 [facility] Comment on above: Performed By: #### L 509.7001 #### [facility] [address] [place], [address] Urinalysis, Completeon 11-09 EPI,SQUAMOUS 0-5 SEEN Normal 5-10 [facility] Comment on above: Order Comment: CLEAN CATCH Performed By: #### L 400.0001 #### [facility] [address] [place], [address] BACTERIA 0 SEEN Normal None Seen [facility] Comment on above: Order Comment: CLEAN CATCH Performed By: #### L 400.0001 #### [facility] [address] [place], [address] Mucus Ql (Urine sed) 0 SEEN Normal [facility] Comment on above: Order Comment: CLEAN CATCH Performed By: #### L 400.0001 #### [facility] [address] [place], [address] RBC 0 SEEN Normal 0-5 [facility] Comment on above: Order Comment: CLEAN CATCH Performed By: #### L 400.0001 #### [facility] [address] [place], [place], [address] WBC 0 SEEN Normal 0-5 [facility] Comment on above: Order Comment: CLEAN CATCH Performed By: #### L 400.0001 #### [facility] [address] [place], [place], [address] Thin prep Papanicolaou smear with manual screeningOrdered By: Eulogio Jiang on 03-28-2024 Thin prep Papanicolaou smear with manual screening 223 mg/dL 74-106 [facility] Comment on above: MANAGEMENT OF PATIEN T CARE PER NURSING PROTOCOL Absolute lymphocyte countOrd ered By: Eulogio Jiang on 03-27-2024 Lymphocytes Auto (Unsp spec) [#/Vol] 2.53 10*3/uL 0.83-4.51 [facility] Automated lymphocyte count a s percentage of total leukocytesOrdered By: Eulogio Jiang on 03-27-2024 Lymphocytes/100 WBC Auto (Unsp spec) 28.7 % 19-41 [facility] Basophil percentageOrdered B y: Eulogio Jiang on 03-27-2024 Basophils/100 WBC (Bld) 1.0 % 0-1 [facility] Chloride [Moles/Vol] 97 mmol/L 98-107 [facility] Eosinophils/100 WBC (Bld) 3.9 % 0-5 [facility] [facility] Glucose [Mass/Vol] 242 mg/dL 74-106 [facility] Comment on above: Glucose result great er than or equal to 200 mg/dLsuggests DIABETES MELLITUS per A.D.A. criteria. Hemoglobin (Bld) [Mass/Vol] 11.3 g/dL 12.0-15.0 [facility] Monocytes/100 WBC (Bld) 4.8 % 0-10 [facility] Neutrophils (Bld) [#/Vol] 5.4 10*3/uL 2.0-7.7 [facility] Neutrophils/100 WBC (Bld) 61.1 % 47-70 [facility] Potassium [Moles/Vol] 3.6 mmol/L 3.5-5.1 [facility] Sodium [Moles/Vol] 138 mmol/L 136-145 [facility] WBC (Bld) [#/Vol] 8.8 10*3/uL 4.4-11.0 [facility] Determination of erythrocyte mean corpuscular volume (MCV)Ordered By: Eulogio Jiang on 03-27-2024 MCV (RBC) [Entitic vol] 91.5 fL 81-99 [facility] Erythrocyte distribution wid th ratioOrdered By: Eulogio Jiang on 03-27-2024 Erythrocyte distribution width (RBC) [Ratio] 13.7 % 11.6-14.6 [facility] Erythrocyte distribution wid th standard deviationOrdered By: Eulogio Jiang on 03-27-2024 Erythrocyte distribution width (RBC) [Entitic vol] 45.3 fL 35.1-43.9 [facility] Hematocrit Auto (Bld) [Volum e fraction]Ordered By: Eulogio Jiang on 03-27-2024 Hematocrit (Bld) [Volume fraction] 35.7 % 37-47 [facility] Immature granulocytes/100 WB C Auto (Bld)Ordered By: Eulogio Jiang on 03-27-2024 Immature granulocytes/100 WBC (Bld) 0.500 % 0.0-0.9 [facility] Comment on above: IG% - Immature Granu locytes (promyelocytes, myelocytes and metamyelocytes) > 1% indicates that a LEFT SHIFT is Present. Laboratory - Chemistry and C hemistry - challengeOrdered By: Eulogio Jiang on 03-27-2024 CO2 [Moles/Vol] 35.0 mmol/L 21.0-32.0 [facility] Urea nitrogen/Creatinine [Mass ratio] 26.0 mg/mg 10-20 [facility] Laboratory - Hematology and Cell countsOrdered By: Eulogio Jiang on 03-27-2024 MCH (RBC) [Entitic mass] 29.0 pg 27.0-32.0 [facility] MCHC (RBC) [Mass/Vol] 31.7 g/dL 32-36 [facility] Nucleated RBC/100 WBC (Bld) [Ratio] 0 % 0-5 [facility] Platelet mean volume (Bld) [Entitic vol] 10.5 fL 6.2-12.0 [facility] Platelets (Bld) [#/Vol] 226 10*3/uL 150-450 [facility] No Panel InformationOrdered By: Eulogio Jiang on 03-27-2024 Estimated Creatinine Clearance Calc 86.75 ml/min [facility] Estimated GFR (MDRD) Amer 58 mL/min >60 [facility] Comment on above: GFR Calc Estimated GFR (MDRD) Non-Af Amer 48 mL/min >60 [facility] Comment on above: Non- GFR Calc RBC Auto (Bld) [#/Vol]Ordere d By: Eulogio Jiang on 03-27-2024 RBC (Bld) [#/Vol] 3.90 10*6/uL 4.2-5.4 [facility] Serum or plasma calcium yunior urement (mass/volume)Ordered By: Eulogio Jiang on 03-27-2024 Calcium [Mass/Vol] 8.7 mg/dL 8.5-10.1 [facility] Serum or plasma creatinine m easurement (mass/volume)Ordered By: Eulogio Jiang on 03-27-2024 Creatinine [Mass/Vol] 1.27 mg/dL 0.55-1.02 [facility] Comment on above: The validity of the calculated GFR & GFRAA in patients over 70 years has not been determined. Clinical correlation is essential. Serum or plasma urea nitroge n measurement (mass/volume)Ordered By: Eulogio Jiang on 03-27-2024 Urea nitrogen [Mass/Vol] 33 mg/dL 7-18 [facility] Thin prep Papanicolaou smear with manual screeningOrdered By: Eulogio Jiang on 03-27-2024 Thin prep Papanicolaou smear with manual screening 6 5-15 [facility] Basophil percentageOrdered B y: Delmy Solorzano on 03-23-2024 Bilirubin [Mass/Vol] 0.20 mg/dL 0.20-1.00 [facility] Comment on above: For patients on eltr ombopag therapy, use of [place] TBIL is not recommended. Chloride [Moles/Vol] 98 mmol/L 98-107 [facility] Glucose [Mass/Vol] 251 mg/dL 74-106 [facility] Comment on above: Glucose result great er than or equal to 200 mg/dLsuggests DIABETES MELLITUS per A.D.A. criteria. Potassium [Moles/Vol] 3.7 mmol/L 3.5-5.1 [facility] Protein [Mass/Vol] 7.3 g/dL 6.4-8.2 [facility] Sodium [Moles/Vol] 138 mmol/L 136-145 [facility] Laboratory - Chemistry and C hemistry - challengeOrdered By: Delmy Solorzano on 03-23-2024 Albumin/Globulin [Mass ratio] 0.9 {ratio} 0.9-2.4 [facility] ALP [Catalytic activity/Vol] 71 U/L 45-117 [facility] ALT [Catalytic activity/Vol] 34 U/L 13-56 [facility] CO2 [Moles/Vol] 33.0 mmol/L 21.0-32.0 [facility] Globulin (S) [Mass/Vol] 3.9 g/dL 2.2-4.2 [facility] Urea nitrogen/Creatinine [Mass ratio] 24.1 mg/mg 10-20 [facility] No Panel InformationOrdered By: Delmy Solorzano on 03-23-2024 Estimated GFR (MDRD) Amer 90 mL/min >60 [facility] Comment on above: GFR Calc Estimated GFR (MDRD) Non-Af Amer 74 mL/min >60 [facility] Comment on above: Non- GFR Calc Serum or plasma calcium yunior urement (mass/volume)Ordered By: Delmy Solorzano on 03-23-2024 Calcium [Mass/Vol] 9.4 mg/dL 8.5-10.1 [facility] Serum or plasma creatinine m easurement (mass/volume)Ordered By: Delmy Solorzano on 03-23-2024 Creatinine [Mass/Vol] 0.87 mg/dL 0.55-1.02 [facility] Comment on above: The validity of the calculated GFR & GFRAA in patients over 70 years has not been determined. Clinical correlation is essential. Serum or plasma urea nitroge n measurement (mass/volume)Ordered By: Delmy Solorzano on 03-23-2024 Urea nitrogen [Mass/Vol] 21 mg/dL 7-18 [facility] Thin prep Papanicolaou smear with manual screeningOrdered By: Delmy Solorzano on 03-23-2024 Thin prep Papanicolaou smear with manual screening 3.4 g/dL 3.2-5.0 [facility] Thin prep Papanicolaou smear with manual screening 23 U/L 15-37 [facility] Thin prep Papanicolaou smear with manual screening 7 5-15 [facility] Absolute lymphocyte countOrd ered By: Eulogio Jiang on 01-14-2024 Lymphocytes Auto (Unsp spec) [#/Vol] 3.13 10*3/uL 0.83-4.51 [facility] Automated lymphocyte count a s percentage of total leukocytesOrdered By: Eulogio iJang on 01-14-2024 Lymphocytes/100 WBC Auto (Unsp spec) 23.8 % 19-41 [facility] Basophil percentageOrdered B y: Eulogio Jiang on 01-14-2024 Basophils/100 WBC (Bld) 0.8 % 0-1 [facility] Chloride [Moles/Vol] 100 mmol/L 98-107 [facility] Eosinophils/100 WBC (Bld) 2.1 % 0-5 [facility] Glucose [Mass/Vol] 232 mg/dL 74-106 [facility] Comment on above: Glucose result great er than or equal to 200 mg/dLsuggests DIABETES MELLITUS per A.D.A. criteria. Hemoglobin (Bld) [Mass/Vol] 11.2 g/dL 12.0-15.0 [facility] Monocytes/100 WBC (Bld) 3.6 % 0-10 [facility] Neutrophils (Bld) [#/Vol] 9.1 10*3/uL 2.0-7.7 [facility] Neutrophils/100 WBC (Bld) 68.8 % 47-70 [facility] Potassium [Moles/Vol] 3.7 mmol/L 3.5-5.1 [facility] Sodium [Moles/Vol] 140 mmol/L 136-145 [facility] WBC (Bld) [#/Vol] 13.2 10*3/uL 4.4-11.0 [facility] Determination of erythrocyte mean corpuscular volume (MCV)Ordered By: Eulogio Jiang on 01-14-2024 MCV (RBC) [Entitic vol] 89.2 fL 81-99 [facility] Erythrocyte distribution wid th ratioOrdered By: Eulogio Jiang on 01-14-2024 Erythrocyte distribution width (RBC) [Ratio] 14.7 % 11.6-14.6 [facility] Erythrocyte distribution wid th standard deviationOrdered By: Eulogio Jiang on 01-14-2024 Erythrocyte distribution width (RBC) [Entitic vol] 47.5 fL 35.1-43.9 [facility] Hematocrit Auto (Bld) [Volum e fraction]Ordered By: Eulogio Jiang on 01-14-2024 Hematocrit (Bld) [Volume fraction] 36.5 % 37-47 [facility] Immature granulocytes/100 WB C Auto (Bld)Ordered By: Eulogio Jiang on 01-14-2024 Immature granulocytes/100 WBC (Bld) 0.900 % 0.0-0.9 [facility] Comment on above: IG% - Immature Granu locytes (promyelocytes, myelocytes and metamyelocytes) > 1% indicates that a LEFT SHIFT is Present. Laboratory - Chemistry and C hemistry - challengeOrdered By: Eulogio Jiang on 01-14-2024 CO2 [Moles/Vol] 33.0 mmol/L 21.0-32.0 [facility] Natriuretic peptide B (Bld) [Mass/Vol] 3.8 pg/mL 0-100 [facility] Urea nitrogen/Creatinine [Mass ratio] 22.8 mg/mg 10-20 [facility] Laboratory - Hematology and Cell countsOrdered By: Eulogio Jiang on 01-14-2024 MCH (RBC) [Entitic mass] 27.4 pg 27.0-32.0 [facility] MCHC (RBC) [Mass/Vol] 30.7 g/dL 32-36 [facility] Nucleated RBC/100 WBC (Bld) [Ratio] 0 % 0-5 [facility] Platelet mean volume (Bld) [Entitic vol] 10.3 fL 6.2-12.0 [facility] Platelets (Bld) [#/Vol] 317 10*3/uL 150-450 [facility] No Panel InformationOrdered By: Eulogio Jiang on 01-14-2024 Estimated Creatinine Clearance Calc 96.92 ml/min [facility] Estimated GFR (MDRD) Amer 66 mL/min >60 [facility] Comment on above: GFR Calc Estimated GFR (MDRD) Non-Af Amer 54 mL/min >60 [facility] Comment on above: Non- GFR Calc RBC Auto (Bld) [#/Vol]Ordere d By: Eulogio Jiang on 01-14-2024 RBC (Bld) [#/Vol] 4.09 10*6/uL 4.2-5.4 [facility] Serum or plasma calcium yunior urement (mass/volume)Ordered By: Eulogio Jiang on 01-14-2024 Calcium [Mass/Vol] 8.8 mg/dL 8.5-10.1 [facility] Serum or plasma creatinine m easurement (mass/volume)Ordered By: Eulogio Jiang on 01-14-2024 Creatinine [Mass/Vol] 1.14 mg/dL 0.55-1.02 [facility] Comment on above: The validity of the calculated GFR & GFRAA in patients over 70 years has not been determined. Clinical correlation is essential. Serum or plasma urea nitroge n measurement (mass/volume)Ordered By: Eulogio Jiang on 01-14-2024 Urea nitrogen [Mass/Vol] 26 mg/dL 7-18 [facility] Thin prep Papanicolaou smear with manual screeningOrdered By: Eulogio Jiang on 01-14-2024 Thin prep Papanicolaou smear with manual screening 7 5-15 [facility] Basophil percentageOrdered B y: Delmy Solorzano on 01-02-2024 Basophil percentage < 1.0 mg/dL 0.55-1.02 [facility] No Panel InformationOrdered By: Delmy Solorzano on 01-02-2024 Bedside Estimated GFR (eGFR) > 60.0000 mL/min >60 [facility] Iron measurement (mass/mass) Ordered By: Delmy Solorzano on 09-25-2023 Iron (Unsp spec) [Mass/Mass] 40 ug/dL 50-170 [facility] Laboratory - Chemistry and C hemistry - challengeOrdered By: Delmy Solorzano on 10-26-2023 Cobalamin (Vitamin B12) [Mass/Vol] 323 pg/mL 211-911 [facility] No Panel InformationOrdered By: [facility] on 09-25-2023 Total Iron Binding Capacity 450 ug/dL 250-450 [facility] Serum or plasma ferritin zhang surement (mass/volume)Ordered By: [facility] on 09-25-2023 Ferritin [Mass/Vol] 41 ng/mL 8-252 [facility] Serum or plasma folate measu rement (mass/volume)Ordered By: [facility] on 09-25-2023 Folate [Mass/Vol] 16.80 ng/mL 3.1-55.4 [facility] Serum or plasma iron saturat ion measurement (mass fraction)Ordered By: [facility] on 09-25-2023 Iron saturation [Mass fraction] 8.9 % 15.0-55.0 [facility] Absolute lymphocyte countOrd ered By: [facility] on 09-18-2023 Lymphocytes Auto (Unsp spec) [#/Vol] 2.67 10*3/uL 0.83-4.51 [facility] Basophil percentageOrdered B y: [facility] on 09-18-2023 Basophils/100 WBC (Bld) 0.7 % 0-1 [facility] Bilirubin [Mass/Vol] 0.30 mg/dL 0.20-1.00 [facility] Comment on above: For patients on eltr ombopag therapy, use of [place] TBIL is not recommended. Chloride [Moles/Vol] 95 mmol/L 98-107 [facility] Cholesterol [Mass/Vol] 126 mg/dL <200 [facility] Comment on above: <200 mg/dL Desirable 200-240 mg/dL Borderline >240 mg/dL High Risk Eosinophils/100 WBC (Bld) 2.5 % 0-5 [facility] Glucose [Mass/Vol] 269 mg/dL 74-106 [facility] Comment on above: Glucose result great er than or equal to 200 mg/dLsuggests DIABETES MELLITUS per A.D.A. criteria. Neutrophils (Bld) [#/Vol] 8.7 10*3/uL 2.0-7.7 [facility] Neutrophils/100 WBC (Bld) 71.3 % 47-70 [facility] Potassium [Moles/Vol] 4.0 mmol/L 3.5-5.1 [facility] Protein [Mass/Vol] 7.8 g/dL 6.4-8.2 [facility] Sodium [Moles/Vol] 134 mmol/L 136-145 [facility] Triglyceride [Mass/Vol] 189 mg/dL <199 [facility] Comment on above: The drugs N-Acetylcy steine and Metamizole may falsely depress this assay.Serum Triglycerides Reference Interval Normal <150 mg/dL Borderline high 150 - 199 mg/dL High 200 - 499 mg/dL Very High > or = 500 mg/dL WBC (Bld) [#/Vol] 12.2 10*3/uL 4.4-11.0 [facility] Blood erythrocytes count (nu mber/volume)Ordered By: Delmy Solorzano on 09-18-2023 RBC (Bld) [#/Vol] 4.21 10*6/uL 4.2-5.4 [facility] Blood hemoglobin measurement (mass/volume)Ordered By: Delmy Solorzano on 09-18-2023 Hemoglobin (Bld) [Mass/Vol] 11.0 g/dL 12.0-15.0 [facility] Blood lymphocytes/100 leukoc ytesOrdered By: Delmy Solorzano on 09-18-2023 Lymphocytes/100 WBC (Bld) 21.9 % 19-41 [facility] Blood monocytes/100 leukocyt esOrdered By: Delmy Solorzano on 09-18-2023 Monocytes/100 WBC (Bld) 2.8 % 0-10 [facility] Blood platelet mean volumeOr dered By: Delmy Solorzano on 09-18-2023 Platelet mean volume (Bld) [Entitic vol] 10.6 fL 6.2-12.0 [facility] Determination of erythrocyte mean corpuscular volume (MCV)Ordered By: Delmy Solorzano on 09-18-2023 MCV (RBC) [Entitic vol] 87.4 fL 81-99 [facility] Hematocrit Auto (Bld) [Volum e fraction]Ordered By: Delmy Solorzano on 09-18-2023 Hematocrit (Bld) [Volume fraction] 36.8 % 37-47 [facility] Laboratory - Chemistry and C hemistry - challengeOrdered By: Delmy Solorzano on 09-18-2023 ALP [Catalytic activity/Vol] 78 U/L 45-117 [facility] ALT [Catalytic activity/Vol] 27 U/L 13-56 [facility] CO2 [Moles/Vol] 34.0 mmol/L 21.0-32.0 [facility] Globulin (S) [Mass/Vol] 4.5 g/dL 2.2-4.2 [facility] Urea nitrogen/Creatinine [Mass ratio] 17.1 mg/mg 10-20 [facility] Laboratory - Hematology and Cell countsOrdered By: [facility] 09-18-[facility]23 Erythrocyte distribution width (RBC) [Entitic vol] 45.4 fL 35.1-43.9 [facility] Erythrocyte distribution width (RBC) [Ratio] 14.2 % 11.6-14.6 [facility] Immature granulocytes/100 WBC (Bld) 0.800 % 0.0-0.9 [facility] Comment on above: IG% - Immature Granu locytes (promyelocytes, myelocytes and metamyelocytes) > 1% indicates that a LEFT SHIFT is Present. MCH (RBC) [Entitic mass] 26.1 pg 27.0-32.0 [facility] Nucleated RBC/100 WBC (Bld) [Ratio] 0 % 0-5 [facility] MCHC Auto (RBC) [Mass/Vol]Or dered By: Delmy Solorzano on 09-18-2023 MCHC (RBC) [Mass/Vol] 29.9 g/dL 32-36 [facility] No Panel InformationOrdered By: Delmy Solorzano on 09-18-2023 Estimated GFR (MDRD) Amer 97 mL/min >60 [facility] Comment on above: GFR Calc Estimated GFR (MDRD) Non-Af Amer 80 mL/min >60 [facility] Comment on above: Non- GFR Calc Thyroid Stimulating Hormone (TSH) 4.02 uIU/mL 0.358-3.74 [facility] Vitamin D 25-Hydroxy 28.3 ng/mL [facility] Comment on above: Vitamin D 25(OH) Sta tus Range Deficiency <20 ng/mL (50nmol/L) Insufficiency 20 - 30 ng/mL (50 - 75 nmol/L) Sufficiency 30 - 100 ng/mL (75 - 250 nmol/L) Toxicity >100 ng/mL (>250 nmol/L) Platelets bldOrdered By: Mary marcos Ramoske on 09-18-2023 Platelets (Bld) [#/Vol] 325 10*3/uL 150-450 [facility] Serum or plasma albumin yunior urement (mass/volume)Ordered By: Delmy Solorzano on 09-18-2023 Albumin [Mass/Vol] 3.3 g/dL 3.2-5.0 [facility] Serum or plasma albumin/glob ulin mass ratioOrdered By: Delmy Solorzano on 09-18-2023 Albumin/Globulin [Mass ratio] 0.7 {ratio} 0.9-2.4 [facility] Serum or plasma calcium yunior urement (mass/volume)Ordered By: Delmy Solorzano on 09-18-2023 Calcium [Mass/Vol] 9.3 mg/dL 8.5-10.1 [facility] Serum or plasma cholesterol in HDL measurement (mass/volume)Ordered By: Delmy Solorzano on 09-18-2023 Cholesterol in HDL [Mass/Vol] 38 mg/dL >40 [facility] Comment on above: The drugs N-Acetylcy steine and Metamizole may falsely depress this assay. Reference Range HDL <40 mg/dL Low HDL Cholesterol HDL >or= 60 mg/dL High HDL Cholesterol Serum or plasma cholesterol in VLDL measurement (mass/volume)Ordered By: Delmy Solorzano on 09-18-2023 Cholesterol in VLDL [Mass/Vol] 38 mg/dL 5-40 [facility] Serum or plasma creatinine m easurement (mass/volume)Ordered By: Delmy Solorzano on 09-18-2023 Creatinine [Mass/Vol] 0.82 mg/dL 0.55-1.02 [facility] Comment on above: The validity of the calculated GFR & GFRAA in patients over 70 years has not been determined. Clinical correlation is essential. Serum or plasma low density lipoprotein (LDL) cholesterol measurement (mass/volume)Ordered By: Delmy Solorzano on 09-18-2023 Cholesterol in LDL [Mass/Vol] 50 mg/dL 0-130 [facility] Serum or plasma urea nitroge n measurement (mass/volume)Ordered By: Delmy Solorzano on 09-18-2023 Urea nitrogen [Mass/Vol] 14 mg/dL 7-18 [facility] Thin prep Papanicolaou smear with manual screeningOrdered By: [facility] on 09-18-2023 Thin prep Papanicolaou smear with manual screening 16 U/L 15-37 [facility] Thin prep Papanicolaou smear with manual screening 5 5-15 [facility] Whole blood hemoglobin A1c/t otal hemoglobin ratio (mass fraction)Ordered By: Delmy Solorzano on 09-18-2023 HbA1c (Bld) [Mass fraction] 9.6 % 3.8-5.6 [facility] Comment on above: Normal < 5.7 % Predi abetic 5.7 - 6.4 % Diabetic >or= 6.5 % Please note range changes. Absolute lymphocyte countOrd ered By: Liam Wilkes on 07-15-2023 Lymphocytes Auto (Unsp spec) [#/Vol] 2.35 10*3/uL 0.83-4.51 [facility] Basophil percentageOrdered B y: Liam Wilkes on 07-15-2023 Basophils/100 WBC (Bld) 0.8 % 0-1 [facility] Chloride [Moles/Vol] 100 mmol/L 98-107 [facility] Eosinophils/100 WBC (Bld) 2.1 % 0-5 [facility] Glucose [Mass/Vol] 146 mg/dL 74-106 [facility] Comment on above: Fasting Glucose resu lt greater than or equal to 126 mg/dL suggests DIABETES MELLITUS per A.D.A. criteria. Neutrophils (Bld) [#/Vol] 7.4 10*3/uL 2.0-7.7 [facility] Neutrophils/100 WBC (Bld) 67.0 % 47-70 [facility] Potassium [Moles/Vol] 4.3 mmol/L 3.5-5.1 [facility] Sodium [Moles/Vol] 140 mmol/L 136-145 [facility] WBC (Bld) [#/Vol] 11.0 10*3/uL 4.4-11.0 [facility] Blood erythrocytes count (nu mber/volume)Ordered By: Liam Wilkes on 07-15-2023 RBC (Bld) [#/Vol] 3.74 10*6/uL 4.2-5.4 [facility] Blood hemoglobin measurement (mass/volume)Ordered By: Liam Wilkes on 07-15-2023 Hemoglobin (Bld) [Mass/Vol] 9.4 g/dL 12.0-15.0 [facility] Blood lymphocytes/100 leukoc ytesOrdered By: Liam Wilkes on 07-15-2023 Lymphocytes/100 WBC (Bld) 21.4 % 19-41 [facility] Blood monocytes/100 leukocyt esOrdered By: Liam Wilkes on 07-15-2023 Monocytes/100 WBC (Bld) 4.5 % 0-10 [facility] Blood platelet mean volumeOr dered By: Liam Wilkes on 07-15-2023 Platelet mean volume (Bld) [Entitic vol] 9.5 fL 6.2-12.0 [facility] Determination of erythrocyte mean corpuscular volume (MCV)Ordered By: Liam Wilkes on 07-15-2023 MCV (RBC) [Entitic vol] 90.1 fL 81-99 [facility] Glucose Glucometer (dC) [M ass/Vol]Ordered By: Belem Aponte on 07-15-2023 Glucose [Mass/Vol] 167 mg/dL 74-106 [facility] Comment on above: MANAGEMENT OF PATIEN T CARE PER NURSING PROTOCOL Hematocrit Auto (Bld) [Volum e fraction]Ordered By: Liam Wilkes on 07-15-2023 Hematocrit (Bld) [Volume fraction] 33.7 % 37-47 [facility] Laboratory - Chemistry and C hemistry - challengeOrdered By: Liam Wilkes on 07-15-2023 CO2 [Moles/Vol] 36.0 mmol/L 21.0-32.0 [facility] Urea nitrogen/Creatinine [Mass ratio] 21.9 mg/mg 10-20 [facility] Laboratory - Hematology and Cell countsOrdered By: Liam Wilkes on 07-15-2023 Erythrocyte distribution width (RBC) [Entitic vol] 59.6 fL 35.1-43.9 [facility] Erythrocyte distribution width (RBC) [Ratio] 18.6 % 11.6-14.6 [facility] Immature granulocytes/100 WBC (Bld) 4.200 % 0.0-0.9 [facility] Comment on above: IG% - Immature Granu locytes (promyelocytes, myelocytes and metamyelocytes) > 1% indicates that a LEFT SHIFT is Present. MCH (RBC) [Entitic mass] 25.1 pg 27.0-32.0 [facility] Nucleated RBC/100 WBC (Bld) [Ratio] 0.4 % 0-5 [facility] MCHC Auto (RBC) [Mass/Vol]Or dered By: Liam Wilkes on 07-15-2023 MCHC (RBC) [Mass/Vol] 27.9 g/dL 32-36 [facility] Comment on above: Delta: 29.9 on 07/14-3 No Panel InformationOrdered By: Liam Wilkes on 07-15-2023 Estimated Creatinine Clearance Calc 68.75 ml/min [facility] Estimated GFR (MDRD) Amer 85 mL/min >60 [facility] Comment on above: GFR Calc Estimated GFR (MDRD) Non-Af Amer 70 mL/min >60 [facility] Comment on above: Non- GFR Calc Platelets bldOrdered By: Shay Wilkes on 07-15-2023 Platelets (Bld) [#/Vol] 355 10*3/uL 150-450 [facility] Serum or plasma calcium yunior urement (mass/volume)Ordered By: Liam Wilkes on 07-15-2023 Calcium [Mass/Vol] 9.3 mg/dL 8.5-10.1 [facility] Serum or plasma creatinine m easurement (mass/volume)Ordered By: Liam Wilkes on 07-15-2023 Creatinine [Mass/Vol] 0.92 mg/dL 0.55-1.02 [facility] Comment on above: The validity of the calculated GFR & GFRAA in patients over 70 years has not been determined. Clinical correlation is essential. Serum or plasma urea nitroge n measurement (mass/volume)Ordered By: Liam Wilkes on 07-15-2023 Urea nitrogen [Mass/Vol] 20 mg/dL 7-18 [facility] Thin prep Papanicolaou smear with manual screeningOrdered By: Liam Wilkes on 07-15-2023 Thin prep Papanicolaou smear with manual screening 4 5-15 [facility] Absolute lymphocyte countOrd ered By: Irina Quintero on 07-14-2023 Lymphocytes Auto (Unsp spec) [#/Vol] 1.91 10*3/uL 0.83-4.51 [facility] Basophil percentageOrdered B y: Irina Quintero on 07-14-2023 Basophils/100 WBC (Bld) 0.6 % 0-1 [facility] Chloride [Moles/Vol] 101 mmol/L 98-107 [facility] Eosinophils/100 WBC (Bld) 1.8 % 0-5 [facility] Glucose [Mass/Vol] 223 mg/dL 74-106 [facility] Comment on above: Glucose result great er than or equal to 200 mg/dLsuggests DIABETES MELLITUS per A.D.A. criteria. Neutrophils (Bld) [#/Vol] 6.1 10*3/uL 2.0-7.7 [facility] Neutrophils/100 WBC (Bld) 67.8 % 47-70 [facility] Potassium [Moles/Vol] 4.4 mmol/L 3.5-5.1 [facility] Sodium [Moles/Vol] 140 mmol/L 136-145 [facility] WBC (Bld) [#/Vol] 8.9 10*3/uL 4.4-11.0 [facility] Blood erythrocytes count (nu mber/volume)Ordered By: Irina Quintero on 07-14-2023 RBC (Bld) [#/Vol] 3.47 10*6/uL 4.2-5.4 [facility] Blood hemoglobin measurement (mass/volume)Ordered By: Irina Quintero on 07-14-2023 Hemoglobin (Bld) [Mass/Vol] 9.2 g/dL 12.0-15.0 [facility] Blood lymphocytes/100 leukoc ytesOrdered By: Irina uQintero on 07-14-2023 Lymphocytes/100 WBC (Bld) 21.4 % 19-41 [facility] Blood monocytes/100 leukocyt esOrdered By: Irina Quintero on 07-14-2023 Monocytes/100 WBC (Bld) 4.5 % 0-10 [facility] Blood platelet mean volumeOr dered By: Irina Quintero on 07-14-2023 Platelet mean volume (Bld) [Entitic vol] 9.2 fL 6.2-12.0 [facility] Determination of erythrocyte mean corpuscular volume (MCV)Ordered By: Irina Quintero on 07-14-2023 MCV (RBC) [Entitic vol] 88.8 fL 81-99 [facility] Hematocrit Auto (Bld) [Volum e fraction]Ordered By: Irina Quintero on 07-14-2023 Hematocrit (Bld) [Volume fraction] 30.8 % 37-47 [facility] - Chemistry and C hemistry - challengeOrdered By: Irina Quintero on 07-14-2023 CO2 [Moles/Vol] 36.0 mmol/L 21.0-32.0 [facility] [facility] Natriuretic peptide B (Bld) [Mass/Vol] 40.4 pg/mL 0-100 [facility] Urea nitrogen/Creatinine [Mass ratio] 17.9 mg/mg 10-20 [facility] - Hematology and Cell countsOrdered By: Irina Quintero on 07-14-2023 Erythrocyte distribution width (RBC) [Entitic vol] 58.5 fL 35.1-43.9 [facility] Erythrocyte distribution width (RBC) [Ratio] 18.4 % 11.6-14.6 [facility] Immature granulocytes/100 WBC (Bld) 3.900 % 0.0-0.9 [facility] Comment on above: IG% - Immature Granu locytes (promyelocytes, myelocytes and metamyelocytes) > 1% indicates that a LEFT SHIFT is Present. MCH (RBC) [Entitic mass] 26.5 pg 27.0-32.0 [facility] Nucleated RBC/100 WBC (Bld) [Ratio] 0.2 % 0-5 [facility] MCHC Auto (RBC) [Mass/Vol]Or dered By: Irina Quintero on 07-14-2023 MCHC (RBC) [Mass/Vol] 29.9 g/dL 32-36 [facility] No Panel InformationOrdered By: Irina Quintero on 07-14-2023 Troponin I High Sensitivity 17 pg/mL 3.0-54.0 [facility] Comment on above: Please Note: New Laisha t Units and Gender Specific Reference Ranges. For more information see Policy Stat Procedure [place] High Sensitivity Troponin (TNIH) and attachments. Estimated Creatinine Clearance Calc 59.67 ml/min [facility] Estimated GFR (MDRD) Amer 72 mL/min >60 [facility] Comment on above: GFR Calc Estimated GFR (MDRD) Non-Af Amer 59 mL/min >60 [facility] Comment on above: Non- GFR Calc Platelets bldOrdered By: Kely Quintero on 07-14-2023 Platelets (Bld) [#/Vol] 317 10*3/uL 150-450 [facility] Serum or plasma calcium yunior urement (mass/volume)Ordered By: Irina Quintero on 07-14-2023 Calcium [Mass/Vol] 9.0 mg/dL 8.5-10.1 [facility] Serum or plasma creatinine m easurement (mass/volume)Ordered By: Irina Quintero on 07-14-2023 Creatinine [Mass/Vol] 1.06 mg/dL 0.55-1.02 [facility] Comment on above: The validity of the calculated GFR & GFRAA in patients over 70 years has not been determined. Clinical correlation is essential. Serum or plasma urea nitroge n measurement (mass/volume)Ordered By: Irina Quintero on 07-14-2023 Urea nitrogen [Mass/Vol] 19 mg/dL 7-18 [facility] Thin prep Papanicolaou smear with manual screeningOrdered By: Irina Quintero on 07-14-2023 Thin prep Papanicolaou smear with manual screening 3 5-15 [facility] Absolute lymphocyte countOrd ered By: Belem Aponte on 04-25-2023 Lymphocytes Auto (Unsp spec) [#/Vol] 0.92 10*3/uL 0.83-4.51 [facility] Basophil percentageOrdered B y: Belem Aponte on 04-25-2023 Basophil percentage 3.3 mg/dL 2.5-4.9 [facility] Basophils/100 WBC (Bld) 0.3 % 0-1 [facility] Chloride [Moles/Vol] 96 mmol/L 98-107 [facility] Eosinophils/100 WBC (Bld) 0.0 % 0-5 [facility] Glucose [Mass/Vol] 301 mg/dL 74-106 [facility] Comment on above: Glucose result great er than or equal to 200 mg/dLsuggests DIABETES MELLITUS per A.D.A. criteria. Neutrophils (Bld) [#/Vol] 10.3 10*3/uL 2.0-7.7 [facility] Neutrophils/100 WBC (Bld) 89.0 % 47-70 [facility] Potassium [Moles/Vol] 4.3 mmol/L 3.5-5.1 [facility] Sodium [Moles/Vol] 137 mmol/L 136-145 [facility] WBC (Bld) [#/Vol] 11.6 10*3/uL 4.4-11.0 [facility] Blood erythrocytes count (nu mber/volume)Ordered By: Belem Aponte on 04-25-2023 RBC (Bld) [#/Vol] 3.78 10*6/uL 4.2-5.4 [facility] Blood hemoglobin measurement (mass/volume)Ordered By: Belem Aponte on 04-25-2023 Hemoglobin (Bld) [Mass/Vol] 9.5 g/dL 12.0-15.0 [facility] Blood lymphocytes/100 leukoc ytesOrdered By: Belem Aponte on 04-25-2023 Lymphocytes/100 WBC (Bld) 8.0 % 19-41 [facility] Blood monocytes/100 leukocyt esOrdered By: Belem Aponte on 04-25-2023 Monocytes/100 WBC (Bld) 2.2 % 0-10 [facility] Blood platelet mean volumeOr dered By: Belem Aponte on 04-25-2023 Platelet mean volume (Bld) [Entitic vol] 9.4 fL 6.2-12.0 [facility] Determination of erythrocyte mean corpuscular volume (MCV)Ordered By: Belem Aponte on 04-25-2023 MCV (RBC) [Entitic vol] 88.9 fL 81-99 [facility] Glucose Glucometer (BldC) [M ass/Vol]Ordered By: Belem Aponte on 04-25-2023 Glucose [Mass/Vol] 298 mg/dL 74-106 [facility] Comment on above: MANAGEMENT OF PATIEN T CARE PER NURSING PROTOCOL Hematocrit Auto (Bld) [Volum e fraction]Ordered By: Belem Aponte on 04-25-2023 Hematocrit (Bld) [Volume fraction] 33.6 % 37-47 [facility] - Chemistry and C hemistry - challengeOrdered By: Belem Aponte on 04-25-2023 CO2 [Moles/Vol] 37.0 mmol/L 21.0-32.0 [facility] Magnesium [Mass/Vol] 2.1 mg/dL 1.6-2.6 [facility] Urea nitrogen/Creatinine [Mass ratio] 32.2 mg/mg 10-20 [facility] - Hematology and Cell countsOrdered By: Belem Aponte on 04-25-2023 Erythrocyte distribution width (RBC) [Entitic vol] 53.5 fL 35.1-43.9 [facility] Erythrocyte distribution width (RBC) [Ratio] 16.6 % 11.6-14.6 [facility] Immature granulocytes/100 WBC (Bld) 0.500 % 0.0-0.9 [facility] Comment on above: IG% - Immature Granu locytes (promyelocytes, myelocytes and metamyelocytes) > 1% indicates that a LEFT SHIFT is Present. MCH (RBC) [Entitic mass] 25.1 pg 27.0-32.0 [facility] Nucleated RBC/100 WBC (Bld) [Ratio] 0.2 % 0-5 [facility] MCHC Auto (RBC) [Mass/Vol]Or dered By: Belem Aponte on 04-25-2023 MCHC (RBC) [Mass/Vol] 28.3 g/dL 32-36 [facility] No Panel InformationOrdered By: Belem Aponte on 04-25-2023 Estimated Creatinine Clearance Calc 68.74 ml/min [facility] Estimated GFR (MDRD) Amer 83 mL/min >60 [facility] Comment on above: GFR Calc Estimated GFR (MDRD) Non-Af Amer 69 mL/min >60 [facility] Comment on above: Non- GFR Calc Platelets bldOrdered By: Vivian Aponte on 04-25-2023 Platelets (Bld) [#/Vol] 264 10*3/uL 150-450 [facility] Serum or plasma calcium yunior urement (mass/volume)Ordered By: Belem Aponte on 04-25-2023 Calcium [Mass/Vol] 8.9 mg/dL 8.5-10.1 [facility] Serum or plasma creatinine m easurement (mass/volume)Ordered By: Belem Aponte on 04-25-2023 Creatinine [Mass/Vol] 0.93 mg/dL 0.55-1.02 [facility] Comment on above: The validity of the calculated GFR & GFRAA in patients over 70 years has not been determined. Clinical correlation is essential. Serum or plasma urea nitroge n measurement (mass/volume)Ordered By: Belem Aponte on 04-25-2023 Urea nitrogen [Mass/Vol] 30 mg/dL 7-18 [facility] Thin prep Papanicolaou smear with manual screeningOrdered By: Belem Aponte on 04-25-2023 Thin prep Papanicolaou smear with manual screening 4 5-15 [facility] Bacteria identified Respirat ory culture Nom (Unsp spec)Ordered By: Belem Aponte on 04-24-2023 Respiratory Culture Meth. resistant Staph. aureus [facility] Basophil percentageOrdered B y: Deejay Ornelas on 04-24-2023 Lactate [Moles/Vol] 2.1 mmol/L 0.4-2.0 [facility] Comment on above: Critical Result(s) C alled at: 00:52:49 04/24/2023 by: Mahin LOJA RN (MS3) Results read back by same. Gram stain for investigation of transfusion reactionOrdered By: Belem Aponte on 04-24-2023 Microscopic observation Gram stain Nom (Unsp spec) [facility] Urine Legionella pneumophila antigen detectionOrdered By: Belem Aponte on 04-24-2023 L. pneumophila Ag Ql (U) [facility] - Chemistry and C hemistry - challengeOrdered By: Deejay Ornelas on 04-23-2023 Natriuretic peptide B (Bld) [Mass/Vol] 22.8 pg/mL 0-100 [facility] - Microbiology an d Antimicrobial susceptibilityOrdered By: Deejay Ornelas on 04-23-2023 Bacteria identified Cx Nom (Bld) No growth in 5 days. [facility] No Panel InformationOrdered By: Deejay Ornelas on 04-23-2023 Troponin I High Sensitivity 24 pg/mL 3.0-54.0 [facility] Comment on above: Please Note: New Laisha t Units and Gender Specific Reference Ranges. For more information see Policy Stat Procedure [place] High Sensitivity Troponin (TNIH) and attachments. Bacteria identified Anaer cx Nom (Unsp spec)Ordered By: Dr. Lange on 03-08-2023 Anaerobic culture Prevotella melaninogenica [facility] Anaerobic culture Anaerobic cocci [facility] No Panel InformationOrdered By: Dr. Kaiser on 03-07-2023 No growth in 5 days. [facility] Bacteria identified Cx Nom ( Wound)Ordered By: Dr. Lange on 03-06-2023 Routine wound culture Proteus mirabilis [facility] Routine wound culture Streptococcus grou p A [facility] Routine wound culture Corynebacterium amycolatum [facility] Routine wound culture Enterobacter cloacae complex [facility] Absolute lymphocyte countOrd ered By: Dr. Neville on 03-05-2023 Lymphocytes Auto (Unsp spec) [#/Vol] 2.12 10*3/uL 0.83-4.51 [facility] Basophil percentageOrdered B y: Dr. Neville on 03-05-2023 Basophil percentage 330 mg/dL 74-106 [facility] Basophil percentage 133 mmol/L 136-145 [facility] Basophil percentage 3.4 mmol/L 3.5-5.1 [facility] Basophil percentage 90 mmol/L 98-107 [facility] Basophils (Bld) [#/Vol] 11.1 10*3/uL 4.4-11.0 [facility] Basophils (Bld) [#/Vol] 8.3 10*3/uL 2.0-7.7 [facility] Basophils/100 WBC (Bld) 74.4 % 47-70 [facility] Basophils/100 WBC (Bld) 0.1 % 0-5 [facility] Basophils/100 WBC (Bld) 0.3 % 0-1 [facility] Blood erythrocytes count (nu mber/volume)Ordered By: Dr. Neville on 03-05-2023 RBC (Bld) [#/Vol] 3.66 10*6/uL 4.2-5.4 [facility] Blood hemoglobin measurement (mass/volume)Ordered By: Dr. Neville on 03-05-2023 Hemoglobin (Bld) [Mass/Vol] 9.4 g/dL 12.0-15.0 [facility] Blood lymphocytes/100 leukoc ytesOrdered By: Dr. Neville on 03-05-2023 Lymphocytes/100 WBC (Bld) 19.1 % 19-41 [facility] Blood monocytes/100 leukocyt esOrdered By: Dr. Neville on 03-05-2023 Monocytes/100 WBC (Bld) 5.6 % 0-10 [facility] Blood platelet mean volumeOr dered By: Dr. Neville on 03-05-2023 Platelet mean volume (Bld) [Entitic vol] 9.8 fL 6.2-12.0 [facility] Culture, urineOrdered By: Dr Susan Box on 03-05-2023 Bacteria identified Cx Nom (U) Culture exhibits no growth. [facility] Determination of erythrocyte mean corpuscular volume (MCV)Ordered By: Dr. Neville on 03-05-2023 MCV (RBC) [Entitic vol] 88.3 fL 81-99 [facility] Glucose Glucometer (BldC) [M ass/Vol]Ordered By: Dr. Neville on 03-05-2023 Glucose [Mass/Vol] 361 mg/dL 74-106 [facility] Hematocrit Auto (Bld) [Volum e fraction]Ordered By: Dr. Neville on 03-05-2023 Hematocrit (Bld) [Volume fraction] 32.3 % 37-47 [facility] MCHC Auto (RBC) [Mass/Vol]Or dered By: Dr. Neville on 03-05-2023 MCHC (RBC) [Mass/Vol] 29.1 g/dL 32-36 [facility] No Panel InformationOrdered By: Dr. Neville on 03-05-2023 25.7 pg 27.0-32.0 [facility] 16.5 % 11.6-14.6 [facility] 53.4 fl 35.1-43.9 [facility] 0.500 % 0.0-0.9 [facility] 0.4 % 0-5 [facility] 70 mL/min >60 [facility] 85 mL/min >60 [facility] 69.49 ml/min [facility] 31.5 RATIO 10-20 [facility] 39.0 mmol/L 21.0-32.0 [facility] Platelets bldOrdered By: Dr. Neville on 03-05-2023 Platelets (Bld) [#/Vol] 266 10*3/uL 150-450 [facility] Serum or plasma calcium yunior urement (mass/volume)Ordered By: Dr. Neville on 03-05-2023 Calcium [Mass/Vol] 9.0 mg/dL 8.5-10.1 [facility] Serum or plasma creatinine m easurement (mass/volume)Ordered By: Dr. Neville on 03-05-2023 Creatinine [Mass/Vol] 0.92 mg/dL 0.55-1.02 [facility] Serum or plasma urea nitroge n measurement (mass/volume)Ordered By: Dr. Neville on 03-05-2023 Urea nitrogen [Mass/Vol] 29 mg/dL 7-18 [facility] Thin prep Papanicolaou smear with manual screeningOrdered By: Dr. Neville on 03-05-2023 Thin prep Papanicolaou smear with manual screening 4 5-15 [facility] Basophil percentageOrdered B y: Dr. Lange on 03-03-2023 Basophil percentage 7.2 g/dL 6.4-8.2 [facility] Basophil percentage 0.30 mg/dL 0.20-1.00 [facility] Gram stain for investigation of transfusion reactionOrdered By: Dr. Lange on 03-03-2023 Microscopic observation Gram stain Nom (Unsp spec) [facility] - Microbiology an d Antimicrobial susceptibilityOrdered By: Dr. Box on 03-03-2023 Respiratory pathogens DNA and RNA 12b panel SURESH+probe (Unsp spec) [facility] No Panel InformationOrdered By: Dr. Lange on 03-03-2023 4.6 g/dL 2.2-4.2 [facility] 60 U/L 45-117 [facility] 20 U/L 13-56 [facility] 22 pg/mL 3.0-54.0 [facility] Serum or plasma albumin yunior urement (mass/volume)Ordered By: Dr. Lange on 03-03-2023 Albumin [Mass/Vol] 2.6 g/dL 3.2-5.0 [facility] Serum or plasma albumin/glob ulin mass ratioOrdered By: Dr. Lange on 03-03-2023 Albumin/Globulin [Mass ratio] 0.6 {ratio} 0.9-2.4 [facility] Thin prep Papanicolaou smear with manual screeningOrdered By: Dr. Lange on 03-03-2023 Thin prep Papanicolaou smear with manual screening 15 U/L 15-37 [facility] Vancomycin troughOrdered By: Dr. Lange on 03-03-2023 Vancomycin trough [Mass/Vol] 17.8 ug/mL 5.0-15.0 [facility] Assessment of wrist artery p atency prior to arterial punctureOrdered By: Dr. Lange on 03-02-2023 Arterial patency Wrist artery --pre arterial puncture Positive [facility] Base excessOrdered By: Dr. Alberto french on 03-02-2023 Base excess Calc (BldV) [Moles/Vol] 8 mmol/L -2-2 [facility] Basophil percentageOrdered B y: Dr. Lange on 03-02-2023 Basophil percentage 33.8 mmol/L 22-26 [facility] Basophils/100 WBC (Bld) 89 % 95-99 [facility] Basophil percentageOrdered B y: Dr. Kaiser on 03-02-2023 Basophil percentage 0.9 mmol/L 0.4-2.0 [facility] Basophil percentageOrdered B y: Dr. Box on 03-02-2023 Basophil percentage 0 SEEN /hpf 0-5 [facility] Bilirubin Test strip Ql (U)O rdered By: Dr. Box on 03-02-2023 Bilirubin Ql (U) Negative Negative [facility] CO2 (BldA) [Partial pressure ]Ordered By: Dr. Lange on 03-02-2023 CO2 (Bld) [Partial pressure] 64.4 mm[Hg] 35-45 [facility] COVID-19 virus antigen assay Ordered By: Dr. Box on 03-02-2023 SARS-CoV-2 (COVID-19) Ag IA.rapid Ql (Resp) Negative Not Detect [facility] HCO3 (BldA) [Moles/Vol]Order ed By: Dr. Kaiser on 03-02-2023 HCO3 (Bld) [Moles/Vol] 32 mmol/L 22-26 [facility] Ketones Test strip Ql (U)Ord ered By: Dr. Box on 03-02-2023 Ketones Ql (U) Negative Negative [facility] Mucus LM Ql (Urine sed)Order ed By: Dr. Box on 03-02-2023 Mucus Ql (Urine sed) 0 SEEN /hpf [facility] Nitrite Test strip Ql (U)Ord ered By: Dr. Box on 03-02-2023 Nitrite Ql (U) Negative Negative [facility] No Panel InformationOrdered By: Dr. Lange on 03-02-2023 ART [facility] L Radial [facility] BiPAP [facility] 22 [facility] 50 [facility] 8 [facility] 36 mmol/L [facility] BiLevel [facility] jopperi [facility] Yes [facility] No Panel InformationOrdered By: Dr. Kaiser on 03-02-2023 67.1 mmHg 41-51 [facility] 6 mmol/L -1.0-3.5 [facility] 87 % 50-70 [facility] 34 mmol/L 23-33 [facility] 68.4 pg/mL 0-100 [facility] Oxygen (BldA) [Partial press ure]Ordered By: Dr. Lange on 03-02-2023 Oxygen (Bld) [Partial pressure] 64 mmHG 75-100 [facility] PO2 venousOrdered By: Dr. Celso morrow on 03-02-2023 Oxygen (BldV) [Partial pressure] 60 mm[Hg] 25-40 [facility] Protein Test strip Ql (U)Ord ered By: Dr. Box on 03-02-2023 Protein Ql (U) 30 mg/dl Negative [facility] Squamous epithelial cells de tection in urine sediment by light microscopyOrdered By: Dr. Box on 03-02-2023 Epithelial cells.squamous LM Ql (Urine sed) 0 SEEN /hpf 5-10 [facility] Urine blood detectionOrdered By: Dr. Box on 03-02-2023 RBC Ql (U) 10 /ul Negative [facility] RBC Ql (U) 0 SEEN /hpf 0-5 [facility] Urine clarityOrdered By: Dr. Box on 03-02-2023 Clarity (U) Clear Clear [facility] Urine color determinationOrd ered By: Dr. Box on 03-02-2023 Color (U) Yellow Yellow [facility] Urine glucose detectionOrder ed By: Dr. Box on 03-02-2023 Glucose Ql (U) 1000 mg/dl Normal [facility] Urine leukocyte esterase det ection by dipstickOrdered By: Dr. Box on 03-02-2023 Leukocyte esterase Test strip Ql (U) Negative Negative [facility] Urine pHOrdered By: Dr. Katharine rodriguez on 03-02-2023 pH (U) 6.0 [pH] 5.0 - 8.0 [facility] Urine sediment bacteria coun t by microscopy (number/high power field)Ordered By: Dr. Box on 03-02-2023 Bacteria LM.HPF (Urine sed) [#/Area] 0 /[HPF] None Seen [facility] Urine specific gravity measu rementOrdered By: Dr. Box on 03-02-2023 Specific gravity (U) [Rel density] 1.015 1.002-1.030 [facility] Urobilinogen Auto test strip Ql (U)Ordered By: Dr. Box on 03-02-2023 Urobilinogen Ql (U) Normal mg/dl Normal [facility] pH measurementOrdered By: Dr Susan Lange on 03-02-2023 pH (Unsp spec) 7.33 [pH] 7.35-7.45 [facility] pH measurementOrdered By: Dr Susan Kaiser on 03-02-2023 pH (Unsp spec) 7.29 [pH] 7.32-7.42 [facility] No Panel InformationOrdered By: Dr. Ornelas on 02-24-2023 No growth in 5 days. [facility] Basic metabolic 2000 panelon 02-20-2023 Anion gap [Moles/Vol] 8 mmol/L Low 9-18 [facility] Comment on above: Order Comment: Speci men Type: BLOOD SPECIMENOrdering Facility: [facility] Address: [address] [place] [address] Performed By: #### 2 4321-2 ####[facility] LABORATORYCLIA [id number] [place] [address] [place] Calcium [Mass/Vol] 8.9 mg/dL Normal 8.5-10.2 [facility] Comment on above: Order Comment: Speci men Type: BLOOD SPECIMENOrdering Facility: [facility] Address: [address] [place] [address] Performed By: #### 2 4321-2 ####[facility] LABORATORYCLIA [id number] [place] [address] [place] Chloride [Moles/Vol] 99 mmol/L Normal 97-105 [facility] Comment on above: Order Comment: Speci men Type: BLOOD SPECIMENOrdering Facility: [facility] Address: [address] [place] [address] Performed By: #### 2 4321-2 ####[facility] LABORATORYCLIA [id number] [place] [address] [place] CO2 [Moles/Vol] 30 mmol/L Normal 22-30 [facility] Comment on above: Order Comment: Speci men Type: BLOOD SPECIMENOrdering Facility: [facility] Address: [address] [place] [address] Performed By: #### 2 4321-2 ####[facility] LABORATORYCLIA [id number] [address] STATES OF [facility] Creatinine [Mass/Vol] 0.59 mg/dL Normal 0.58-0.96 [facility] Comment on above: Order Comment: Roberto dahiana Type: BLOOD SPECIMENOrdering Facility: [facility] Address: [address] [place] [address] Performed By: #### 2 4321-2 ####[facility] LABORATORYCLIA [id number] [address] ESTIMATED GLOMERULAR FILTRATION RATE 113 mL/min/1.73m??? Normal >=60 [facility] Comment on above: Order Comment: Roberto talbot Type: BLOOD SPECIMENOrdering Facility: [facility] Address: [address] [place] [address] Result Comment: Gayle mated Glomerular Filtration Rate [...] Performed By: #### 2 4321-2 ####[facility]ORATORYCLIA [id number] [address] Glucose [Mass/Vol] 127 mg/dL High 74-99 [facility] Comment on above: Order Comment: Roberto dahiana Type: BLOOD SPECIMENOrdering Facility: [facility] Address: [address] [place] [address] Result Comment: The [place] [employer] (ADA) provides guidance for [...] Standards of Medical Care in Diabetes 2016, [place] [employer]. Diabetes Care. 2016.39(Suppl 1). Performed By: #### 2 4321-2 ####[facility]ORATORYCLIA [id number] [address] STATES OF [facility] Potassium [Moles/Vol] 4.3 mmol/L Normal 3.7-5.1 [facility] Comment on above: Order Comment: Speci men Type: BLOOD SPECIMENOrdering Facility: [facility] Address: [address] [address] Performed By: #### 2 4321-2 ####[facility]ORATORYCLIA [id number] [address] Sodium [Moles/Vol] 137 mmol/L Normal 136-144 [facility] Comment on above: Order Comment: Speci men Type: BLOOD SPECIMENOrdering Facility: [facility] Address: [address] [address] Performed By: #### 2 4321-2 ####[facility]ORATORYCLIA [id number] [address] Urea nitrogen [Mass/Vol] 8 mg/dL Normal 7-21 [facility] Comment on above: Order Comment: Speci men Type: BLOOD SPECIMENOrdering Facility: [facility] Address: [address] [address] Performed By: #### 2 4321-2 ####[facility] LABORATORYCLIA [id number] [address] OF [place] CASE MANAGEMon 02-20-2023 CASE MANAGEM Normal [facility] CBC panel Auto (Bld)on 02-20 Erythrocyte distribution width (RBC) [Ratio] 16.0 % High 11.5-15.0 [facility] Comment on above: Order Comment: Speci men Type: BLOOD SPECIMENOrdering Facility: [facility] Address: [address] [address] Performed By: #### 5 8410-2 ####[facility] LABORATORYCLIA [id number] [address] Hematocrit (Bld) [Volume fraction] 31.3 % Low 36.0-46.0 [facility] Comment on above: Order Comment: Speci men Type: BLOOD SPECIMENOrdering Facility: [facility] Address: [address] [place] [address] Performed By: #### 5 8410-2 ####[facility]ORATORYCLIA [id number] [address] OF [facility] Hemoglobin (Bld) [Mass/Vol] 8.8 g/dL Low 11.5-15.5 [facility] Comment on above: Order Comment: Speci men Type: BLOOD SPECIMENOrdering Facility: [facility] Address: [address] [place] [address] Performed By: #### 5 8410-2 ####[facility] LABORATORYCLIA [id number] [address] MCH (RBC) [Entitic mass] 25.8 pg Low 26.0-34.0 [facility] Comment on above: Order Comment: Speci men Type: BLOOD SPECIMENOrdering Facility: [facility] Address: [address] [place] [address] Performed By: #### 5 8410-2 ####[facility]ORATORYCLIA [id number] [address] MCHC (RBC) [Mass/Vol] 28.1 g/dL Low 30.5-36.0 [facility] Comment on above: Order Comment: Speci men Type: BLOOD SPECIMENOrdering Facility: [facility] Address: [address] [place] [address] Performed By: #### 5 8410-2 ####[facility] LABORATORYCLIA [id number] [address] [place] MCV (RBC) [Entitic vol] 91.8 fL Normal 80.0-100.0 [facility] Comment on above: Order Comment: Speci men Type: BLOOD SPECIMENOrdering Facility: [facility] Address: [address] [address] Performed By: #### 5 8410-2 ####[facility] LABORATORYCLIA [id number] [address] [place] Nucleated RBC (Bld) [#/Vol] 0.02 10*3/uL High <0.01 [facility] Comment on above: Order Comment: Speci men Type: BLOOD SPECIMENOrdering Facility: [facility] Address: [address] [place] [address] Performed By: #### 5 8410-2 ####[facility]ORATORYCLIA [id number] [address] [place] Platelet mean volume (Bld) [Entitic vol] 9.8 fL Normal 9.0-12.7 [facility] Comment on above: Order Comment: Speci men Type: BLOOD SPECIMENOrdering Facility: [facility] Address: [address] [address] Performed By: #### 5 8410-2 ####[facility] LABORATORYCLIA [id number] [address] [place] Platelets (Bld) [#/Vol] 264 10*3/uL Normal 150-400 [facility] Comment on above: Order Comment: Speci men Type: BLOOD SPECIMENOrdering Facility: [facility] Address: [address] [address] Performed By: #### 5 8410-2 ####[facility] LABORATORYCLIA [id number] [place] [address] [place] RBC (Bld) [#/Vol] 3.41 10*6/uL Low 3.90-5.20 [facility] Comment on above: Order Comment: Speci men Type: BLOOD SPECIMENOrdering Facility: [facility] Address: [address] [place] [address] Performed By: #### 5 8410-2 ####[facility] LABORATORYCLIA [id number] [address] [place] WBC (Bld) [#/Vol] 9.61 10*3/uL Normal 3.70-11.00 [facility] Comment on above: Order Comment: Speci men Type: BLOOD SPECIMENOrdering Facility: [facility] Address: [address] [place] [address] Performed By: #### 5 8410-2 ####[facility] LABORATORYCLIA [id number] [address] OF [place] CNDSon 02-20-2023 CNDS Normal [facility] CONSULT PROGon 02-20-2023 CONSULT PROG Normal [facility] CONSULT PROG Normal [facility] CONSULT PROG Normal [facility] aPTT PPPon 02-20-2023 aPTT Coag (PPP) [Time] 45.5 s High 23.0-32.4 [facility] Comment on above: Order Comment: Speci men Type: BLOOD SPECIMENOrdering Facility: [facility] Address: [address] [place] [address] Performed By: #### 1 4979-9 ####[facility] LABORATORYCLIA [id number] [address] aPTT Coag (PPP) [Time] 39.7 s High 23.0-32.4 [facility] Comment on above: Order Comment: Speci men Type: BLOOD SPECIMENOrdering Facility: [facility] Address: [address] [place] [address] Performed By: #### 1 4979-9 ####[facility] LABORATORYCLIA [id number] [place] [address] [place] ALLIED HEALTHon 02-19-2023 ALLIED HEALTH Normal [facility] Basic metabolic 2000 panelon 02-19-2023 Anion gap [Moles/Vol] 7 mmol/L Low 9-18 [facility] Comment on above: Order Comment: Speci men Type: BLOOD SPECIMENOrdering Facility: [facility] Address: [address] [place] [address] Performed By: #### 2 4321-2 ####[facility] LABORATORYCLIA [id number] [address] [place] Calcium [Mass/Vol] 8.9 mg/dL Normal 8.5-10.2 [facility] Comment on above: Order Comment: Speci men Type: BLOOD SPECIMENOrdering Facility: [facility] Address: [address] [place] [address] Performed By: #### 2 4321-2 ####[facility]ORATORYCLIA [id number] [address] [place] Chloride [Moles/Vol] 103 mmol/L Normal 97-105 [facility] Comment on above: Order Comment: Speci men Type: BLOOD SPECIMENOrdering Facility: [facility] Address: [address] [place] [address] Performed By: #### 2 4321-2 ####[facility] LABORATORYCLIA [id number] [address] OF [facility] CO2 [Moles/Vol] 30 mmol/L Normal 22-30 [facility] Comment on above: Order Comment: Speci men Type: BLOOD SPECIMENOrdering Facility: [facility] Address: [address] [place] [address] Performed By: #### 2 4321-2 ####[facility] LABORATORYCLIA [id number] [address] [place] Creatinine [Mass/Vol] 0.65 mg/dL Normal 0.58-0.96 [facility] Comment on above: Order Comment: Speci men Type: BLOOD SPECIMENOrdering Facility: [facility] Address: [address] [place] [address] Performed By: #### 2 4321-2 ####[facility] LABORATORYCLIA [id number] [address] ESTIMATED GLOMERULAR FILTRATION RATE 111 mL/min/1.73m??? Normal >=60 [facility] Comment on above: Order Comment: Speci men Type: BLOOD SPECIMENOrdering Facility: [facility] Address: [address] [phone] Result Comment: Gayle mated Glomerular Filtration Rate [...] Performed By: #### 2 4321-2 ####[facility] LABORATORYCLIA [id number] [place] [address] [place] Glucose [Mass/Vol] 154 mg/dL High 74-99 [facility] Comment on above: Order Comment: Roberto talbot Type: BLOOD SPECIMENOrdering Facility: [facility] Address: [address] [place] [address] Result Comment: The [place] [employer] (ADA) provides guidance for [...] Standards of Medical Care in Diabetes 2016, [place] [employer]. Diabetes Care. 2016.39(Suppl 1). Performed By: #### 2 4321-2 ####[facility] LABORATORYCLIA [id number] [place] [address] [place] Potassium [Moles/Vol] 4.5 mmol/L Normal 3.7-5.1 [facility] Comment on above: Order Comment: Roberto talbot Type: BLOOD SPECIMENOrdering Facility: [facility] Address: [address] [place], [place] [phone] Performed By: #### 2 4321-2 ####[facility] LABORATORYCLIA [id number] [address] [place] Sodium [Moles/Vol] 140 mmol/L Normal 136-144 [facility] Comment on above: Order Comment: Speci men Type: BLOOD SPECIMENOrdering Facility: [facility] Address: [address] [place] [address] Performed By: #### 2 4321-2 ####[facility] LABORATORYCLIA [id number] [place] [address] [place] Urea nitrogen [Mass/Vol] 11 mg/dL Normal 7-21 [facility] Comment on above: Order Comment: Speci men Type: BLOOD SPECIMENOrdering Facility: [facility] Address: [address] [place] [address] Performed By: #### 2 4321-2 ####[facility]ORATORYCLIA [id number] [address] [place] CASE MGT INIT ASSESon 2022 CASE MGT INIT ASSES Normal [facility] CBC panel Auto (Bld)on 02-19 Erythrocyte distribution width (RBC) [Ratio] 16.4 % High 11.5-15.0 [facility] Comment on above: Order Comment: Speci men Type: BLOOD SPECIMENOrdering Facility: [facility] Address: [address] [place] [address] Performed By: #### 5 8410-2 ####[facility] LABORATORYCLIA [id number] [place] [address] [place] Hematocrit (Bld) [Volume fraction] 32.1 % Low 36.0-46.0 [facility] Comment on above: Order Comment: Speci men Type: BLOOD SPECIMENOrdering Facility: [facility] Address: [address] [place] [address] Performed By: #### 5 8410-2 ####[facility] LABORATORYCLIA [id number] [place] [address] [place] Hemoglobin (Bld) [Mass/Vol] 9.3 g/dL Low 11.5-15.5 [facility] Comment on above: Order Comment: Speci men Type: BLOOD SPECIMENOrdering Facility: [facility] Address: [address] [address] Performed By: #### 5 8410-2 ####[facility] LABORATORYCLIA [id number] [address] MCH (RBC) [Entitic mass] 26.6 pg Normal 26.0-34.0 [facility] Comment on above: Order Comment: Speci men Type: BLOOD SPECIMENOrdering Facility: [facility] Address: [address] [address] Performed By: #### 5 8410-2 ####[facility]ORATORYCLIA [id number] [address] MCHC (RBC) [Mass/Vol] 29.0 g/dL Low 30.5-36.0 [facility] Comment on above: Order Comment: Speci men Type: BLOOD SPECIMENOrdering Facility: [facility] Address: [address] [place] [address] Performed By: #### 5 8410-2 ####[facility]ORATORYCLIA [id number] [address] MCV (RBC) [Entitic vol] 92.0 fL Normal 80.0-100.0 [facility] Comment on above: Order Comment: Speci men Type: BLOOD SPECIMENOrdering Facility: [facility] Address: [address] [address] Performed By: #### 5 8410-2 ####[facility] LABORATORYCLIA [id number] [address] Nucleated RBC (Bld) [#/Vol] 10*3/uL Normal <0.01 [facility] Comment on above: Order Comment: Speci men Type: BLOOD SPECIMENOrdering Facility: [facility] Address: [address] [place] [address] Performed By: #### 5 8410-2 ####[facility]ORATORYCLIA [id number] [address] [place] Platelet mean volume (Bld) [Entitic vol] 9.8 fL Normal 9.0-12.7 [facility] Comment on above: Order Comment: Speci men Type: BLOOD SPECIMENOrdering Facility: [facility] Address: [address] [place] [address] Performed By: #### 5 8410-2 ####[facility] LABORATORYCLIA [id number] [place] [address] [place] Platelets (Bld) [#/Vol] 282 10*3/uL Normal 150-400 [facility] Comment on above: Order Comment: Speci men Type: BLOOD SPECIMENOrdering Facility: [facility] Address: [address] [place] [address] Performed By: #### 5 8410-2 ####[facility]ORATORYCLIA [id number] [address] [place] RBC (Bld) [#/Vol] 3.49 10*6/uL Low 3.90-5.20 [facility] Comment on above: Order Comment: Speci men Type: BLOOD SPECIMENOrdering Facility: [facility] Address: [address] [place] [address] Performed By: #### 5 8410-2 ####[facility]ORATORYCLIA [id number] [address] [place] WBC (Bld) [#/Vol] 11.20 10*3/uL High 3.70-11.00 [facility] Comment on above: Order Comment: Speci men Type: BLOOD SPECIMENOrdering Facility: [facility] Address: [address] [place] [address] Performed By: #### 5 8410-2 ####[facility]ORATORYCLIA [id number] [address] Erythrocyte distribution width (RBC) [Ratio] 16.4 % High 11.5-15.0 [facility] Comment on above: Order Comment: Speci men Type: BLOOD SPECIMENOrdering Facility: [facility] Address: [address] [address] Performed By: #### 5 8410-2 ####[facility] LABORATORYCLIA [id number] [address] Hematocrit (Bld) [Volume fraction] 33.4 % Low 36.0-46.0 [facility] Comment on above: Order Comment: Speci men Type: BLOOD SPECIMENOrdering Facility: [facility] Address: [address] [place] [address] Performed By: #### 5 8410-2 ####[facility]ORATORYCLIA [id number] [address] Hemoglobin (Bld) [Mass/Vol] 9.3 g/dL Low 11.5-15.5 [facility] Comment on above: Order Comment: Speci men Type: BLOOD SPECIMENOrdering Facility: [facility] Address: [address] [place] [address] Performed By: #### 5 8410-2 ####[facility] LABORATORYCLIA [id number] [address] MCH (RBC) [Entitic mass] 25.9 pg Low 26.0-34.0 [facility] Comment on above: Order Comment: Speci men Type: BLOOD SPECIMENOrdering Facility: [facility] Address: [address] [place] [address] Performed By: #### 5 8410-2 ####[facility]ORATORYCLIA [id number] [address] [place] MCHC (RBC) [Mass/Vol] 27.8 g/dL Low 30.5-36.0 [facility] Comment on above: Order Comment: Speci men Type: BLOOD SPECIMENOrdering Facility: [facility] Address: [address] [place] [address] Performed By: #### 5 8410-2 ####[facility] LABORATORYCLIA [id number] [address] MCV (RBC) [Entitic vol] 93.0 fL Normal 80.0-100.0 [facility] Comment on above: Order Comment: Speci men Type: BLOOD SPECIMENOrdering Facility: [facility] Address: [address] [address] Performed By: #### 5 8410-2 ####[facility]ORATORYCLIA [id number] [address] [place] Nucleated RBC (Bld) [#/Vol] 10*3/uL Normal <0.01 [facility] Comment on above: Order Comment: Speci men Type: BLOOD SPECIMENOrdering Facility: [facility] Address: [address] [address] Performed By: #### 5 8410-2 ####[facility]ORATORYCLIA [id number] [address] [place] Platelet mean volume (Bld) [Entitic vol] 9.8 fL Normal 9.0-12.7 [facility] Comment on above: Order Comment: Speci men Type: BLOOD SPECIMENOrdering Facility: [facility] Address: [address] [address] Performed By: #### 5 8410-2 ####[facility]ORATORYCLIA [id number] [address] [place] Platelets (Bld) [#/Vol] 292 10*3/uL Normal 150-400 [facility] Comment on above: Order Comment: Speci men Type: BLOOD SPECIMENOrdering Facility: [facility] Address: [address] [address] Performed By: #### 5 8410-2 ####[facility]ORATORYCLIA [id number] [address] [place] RBC (Bld) [#/Vol] 3.59 10*6/uL Low 3.90-5.20 [facility] Comment on above: Order Comment: Speci men Type: BLOOD SPECIMENOrdering Facility: [facility] Address: [address] [address] Performed By: #### 5 8410-2 ####[facility] LABORATORYCLIA [id number] [place] [address] [facility] WBC (Bld) [#/Vol] 11.49 10*3/uL High 3.70-11.00 [facility] Comment on above: Order Comment: Speci men Type: BLOOD SPECIMENOrdering Facility: [facility] Address: [address] [place] [address] [place] [place] [phone] Performed By: #### 5 8410-2 ####[facility] LABORATORYCLIA [id number] [place] [address] [facility] CONSULTon 02-19-2023 CONSULT Normal [facility] CONSULT PROGon 02-19-2023 CONSULT PROG Normal [facility] Comprehensive metabolic 2000 panelon 02-19-2023 Albumin [Mass/Vol] 3.4 g/dL Low 3.9 - 4.9 g/dL [facility] ALP [Catalytic activity/Vol] 64 U/L 34 - 123 U/L [facility] ALT [Catalytic activity/Vol] 12 U/L 7 - 38 U/L [facility] Anion gap [Moles/Vol] 7 mmol/L Low 9 - 18 mmol/L [facility] AST [Catalytic activity/Vol] 12 U/L Low 13 - 35 U/L [facility] Bilirubin [Mass/Vol] 0.2 mg/dL 0.2 - 1.3 mg/dL [facility] Calcium [Mass/Vol] 8.8 mg/dL 8.5 - 10. 2 mg/dL [facility] Chloride [Moles/Vol] 100 mmol/L 97 - 105 mmol/L [facility] CO2 [Moles/Vol] 29 mmol/L 22 - 30 mmol/L [facility] Creatinine [Mass/Vol] 0.76 mg/dL 0.58 - 0.96 mg/dL [facility] Estimated Glomerular Filtration Rate 99 mL/min/1.73m >=60 mL/min/1.73m [facility] Glucose [Mass/Vol] 153 mg/dL High 74 - 99 mg/dL [facility] Potassium [Moles/Vol] 5.0 mmol/L 3.7 - 5.1 mmol/L [facility] Protein [Mass/Vol] 6.7 g/dL 6.3 - 8.0 g/dL Cl [facility] Sodium [Moles/Vol] 136 mmol/L 136 - 144 mmol/L [facility] Urea nitrogen [Mass/Vol] 16 mg/dL 7 - 21 mg/d L [facility] ED NOTEon 02-19-2023 ED NOTE HNO ID: [id number] Author: Anita Jason RN Service: ? Author Type: Registered Nurse Type: ED Notes Filed: 02/19/2023 12:25 AM Note Text: Bed: 12-ED Expected date: Expected time: Means of arrival: Comments: Ronal transfer Normal [facility] ED PROV NOTEon 02-19-2023 ED PROV NOTE Normal [facility] ED PROV NOTE Normal [facility] HISTORY PHYSICALon HISTORY PHYSICAL Normal [facility] LIPID PANEL, NONFASTINGon Cholesterol [Mass/Vol] 148 mg/dL <200 mg/dL Cl [facility] HDL Cholesterol, Nonfasting 37 mg/dL Low >39 mg/dL [facility] LDL Cholesterol, Nonfasting 87 mg/dL <100 mg/dL [facility] LDL/HDL Ratio, Nonfasting 2.35 mg/dL <2.54 mg/dL [facility] Non HDL Cholesterol, Nonfasting 111 mg/dL <130 mg/dL [facility] Total Chol/HDL Ratio, Nonfasting 4.00 mg/dL <5.10 mg/dL [facility] Triglycerides, Nonfasting 122 mg/dL <150 mg/dL [facility] VLDL Cholesterol, Nonfasting 24 mg/dL <30 mg/dL [facility] NURSING PROGon 02-19-2023 NURSING PROG Normal [facility] PT panel Coag (PPP)on 2022 INR Coag (PPP) [Relative time] 1.1 {INR} Normal 0.9-1.3 [facility] Comment on above: Order Comment: Speci men Type: BLOOD SPECIMENOrdering Facility: [facility] Address: Formerly named [facility] [place] [address] Result Comment: Erika min K Antagonist (VKA) Therapeutic Range: INR 2 to 3 (Target INR of 2.5)Note: For patients treated with VKA drugs, such as warfarin, the [place] [employer] 2012 Guideline [...] 70: 252-289 Performed By: #### 3 4528-0, 38862-7 ####[facility] LABORATORYCLIA [id number] [address] STATES OF [facility] PT Coag (PPP) [Time] 11.4 s Normal 9.7-13.0 [facility] Comment on above: Order Comment: Speci men Type: BLOOD SPECIMENOrdering Facility: [facility] Address: [address] [place] [address] Performed By: #### 3 4528-0, 30913-0 ####[facility]ORATORYCLIA [id number] [address] STATES [facility] URINALYSIS, REFLEX MICROSCOP ICon 02-19-2023 Bacteria LM.HPF (Urine sed) [#/Area] Few Abnormal None Seen [facility] Comment on above: Order Comment: Speci men Type: URINE SPECIMENOrdering Facility: [facility] Address: [address] [address] Performed By: #### L [id number] ####[facility]ORATORYCLIA [id number] [address] STATES [facility] Bilirubin Ql (U) Negative Normal Negative [facility] Comment on above: Order Comment: Speci men Type: URINE SPECIMENOrdering Facility: [facility] Address: [address] [address] Performed By: #### L [id number] ####[facility]ORATORYCLIA [id number] [address] [place] Clarity (Unsp spec) Clear Normal Clear [facility] Comment on above: Order Comment: Speci men Type: URINE SPECIMENOrdering Facility: [facility] Address: [address] [place] [address] Performed By: #### L [id number] ####[facility]ORATORYCLIA [id number] [address] [place] Color (U) Light Yellow Normal yellow [facility] Comment on above: Order Comment: Speci men Type: URINE SPECIMENOrdering Facility: [facility] Address: [address] [place] [address] Performed By: #### L [id number] ####[facility]ORATORYCLIA [id number] [address] [place] Glucose Test strip (U) [Mass/Vol] 4+ Abnormal Trace, Negative [facility] Comment on above: Order Comment: Speci men Type: URINE SPECIMENOrdering Facility: [facility] Address: [address] [place] [address] Performed By: #### L [id number] ####[facility]ORATORYCLIA [id number] [place] [address] [place] Hemoglobin Ql (U) 2+ Abnormal Negative, Trace [facility] Comment on above: Order Comment: Speci men Type: URINE SPECIMENOrdering Facility: [facility] Address: [address] [place] [address] Performed By: #### L [id number] ####[facility]ORATORYCLIA [id number] [address] [place] Ketones Ql (U) Negative Normal Negative, Trace [facility] Comment on above: Order Comment: Speci men Type: URINE SPECIMENOrdering Facility: [facility] Address: [address] [place] [address] Performed By: #### L [id number] ####[facility] LABORATORYCLIA [id number] [address] Leukocyte esterase Test strip Ql (U) 500 Robert/uL Abnormal Negative, 25 Robert/uL [facility] Comment on above: Order Comment: Speci men Type: URINE SPECIMENOrdering Facility: [facility] Address: [address] [place] [address] Performed By: #### L [id number] ####[facility]ORATORYCLIA [id number] [address] Nitrite Ql (U) Negative Normal Negative [facility] Comment on above: Order Comment: Speci men Type: URINE SPECIMENOrdering Facility: [facility] Address: [address] [place] [address] Performed By: #### L [id number] ####[facility]ORATORYCLIA [id number] [address] pH (U) 5.5 [pH] Normal 5.0-8.0 [facility] Comment on above: Order Comment: Speci men Type: URINE SPECIMENOrdering Facility: [facility] Address: [address] [place] [address] Performed By: #### L [id number] ####[facility]ORATORYCLIA [id number] [address] Protein (U) [Mass/Vol] 1+ Abnormal Trace, Negati ve [facility] Comment on above: Order Comment: Speci men Type: URINE SPECIMENOrdering Facility: [facility] Address: [address] [place] [address] Performed By: #### L [id number] ####[facility]ORATORYCLIA [id number] [address] RBC LM.HPF (Urine sed) [#/Area] /[HPF] Abnormal 0-3 /HPF [facility] Comment on above: Order Comment: Speci men Type: URINE SPECIMENOrdering Facility: [facility] Address: [address] [place] [address] Performed By: #### L [id number] ####[facility]ORATORYCLIA [id number] [address] Specific gravity (U) [Rel density] 1.027 Normal 1.005-1.030 [facility] Comment on above: Order Comment: Speci men Type: URINE SPECIMENOrdering Facility: [facility] Address: [address] [place] [address] Performed By: #### L [id number] ####[facility]ORATORYCLIA [id number] [address] Urobilinogen Ql (U) Normal Normal Negative [facility] Comment on above: Order Comment: Speci men Type: URINE SPECIMENOrdering Facility: [facility] Address: [address] [place] [address] Performed By: #### L [id number] ####[facility]ORATORYCLIA [id number] [address] WBC LM.HPF (Urine sed) [#/Area] /[HPF] Abnormal 0-5 /HPF [facility] Comment on above: Order Comment: Speci men Type: URINE SPECIMENOrdering Facility: [facility] Address: [address] [place] [address] Performed By: #### L [id number] ####[facility]ORATORYCLIA [id number] [address] Yeast.budding LM.HPF (Urine sed) [#/Area] Few Abnormal None Seen [facility] Comment on above: Order Comment: Speci men Type: URINE SPECIMENOrdering Facility: [facility] Address: [address] [place] [address] Performed By: #### L [id number] ####[facility]ORATORYCLIA [id number] [address] aPTT PPPon 02-19-2023 aPTT Coag (PPP) [Time] 37.2 s High 28.5-34.0 [facility] Comment on above: Order Comment: Speci men Type: BLOOD SPECIMENOrdering Facility: [facility] Address: [address] [place] [address] Performed By: #### 1 4979-9 ####[facility] LABORATORYCLIA [id number] [address] aPTT Coag (PPP) [Time] 33.7 s High 23.0-32.4 [facility] Comment on above: Order Comment: Speci men Type: BLOOD SPECIMENOrdering Facility: [facility] Address: [address] [address] Performed By: #### 1 4979-9 ####[facility] LABORATORYCLIA [id number] [address] aPTT Coag (PPP) [Time] 28.4 s Normal 23.0-32.4 [facility] Comment on above: Order Comment: Speci men Type: BLOOD SPECIMENOrdering Facility: [facility] [facility] Address: [address] [place] [address] Performed By: #### 3 4528-0, 49452-2 ####[facility] LABORATORYCLIA [id number] [address] Absolute lymphocyte countOrd ered By: Dr. Ornelas on 02-18-2023 Lymphocytes Auto (Unsp spec) [#/Vol] 2.32 10*3/uL 0.83-4.51 [facility] Basophil percentageOrdered B y: Dr. Ornelas on 02-18-2023 Basophil percentage 180 mg/dL 74-106 [facility] Basophil percentage 7.2 g/dL 6.4-8.2 [facility] Basophil percentage 0.20 mg/dL 0.20-1.00 [facility] Basophil percentage 137 mmol/L 136-145 [facility] Basophil percentage 4.5 mmol/L 3.5-5.1 [facility] Basophil percentage 103 mmol/L 98-107 [facility] Basophil percentage 1.6 mmol/L 0.4-2.0 [facility] Basophils (Bld) [#/Vol] 13.4 10*3/uL 4.4-11.0 [facility] Basophils (Bld) [#/Vol] 10.2 10*3/uL 2.0-7.7 [facility] Basophils/100 WBC (Bld) 0.6 % 0-1 [facility] Basophils/100 WBC (Bld) 75.7 % 47-70 [facility] Basophils/100 WBC (Bld) 1.3 % 0-5 [facility] Bilirubin [Mass/Vol] 0.20 mg/dL 0.20-1.00 [facility] Comment on above: For patients on eltr ombopag therapy, use of Dimension [place] TBIL is not recommended. Chloride [Moles/Vol] 103 mmol/L 98-107 [facility] Eosinophils/100 WBC (Bld) 1.3 % 0-5 [facility] Glucose [Mass/Vol] 180 mg/dL 74-106 [facility] Comment on above: Fasting Glucose resu lt greater than or equal to 126 mg/dL suggests DIABETES MELLITUS per A.D.A. criteria. Lactate [Moles/Vol] 1.6 mmol/L 0.4-2.0 [facility] Neutrophils (Bld) [#/Vol] 10.2 10*3/uL 2.0-7.7 [facility] Neutrophils/100 WBC (Bld) 75.7 % 47-70 [facility] Potassium [Moles/Vol] 4.5 mmol/L 3.5-5.1 [facility] Protein [Mass/Vol] 7.2 g/dL 6.4-8.2 [facility] Sodium [Moles/Vol] 137 mmol/L 136-145 [facility] WBC (Bld) [#/Vol] 13.4 10*3/uL 4.4-11.0 [facility] Beta hCG serum qualOrdered B y: Dr. Ornelas on 02-18-2023 Beta HCG ( test) Ql Negative [facility] Blood erythrocytes count (nu mber/volume)Ordered By: Dr. Ornelas on 02-18-2023 RBC (Bld) [#/Vol] 3.48 10*6/uL 4.2-5.4 [facility] Blood hemoglobin measurement (mass/volume)Ordered By: Dr. Ornelas on 02-18-2023 Hemoglobin (Bld) [Mass/Vol] 9.3 g/dL 12.0-15.0 [facility] Blood lymphocytes/100 leukoc ytesOrdered By: Dr. Ornelas on 02-18-2023 Lymphocytes/100 WBC (Bld) 17.3 % 19-41 [facility] Blood monocytes/100 leukocyt esOrdered By: Dr. Ornelas on 02-18-2023 Monocytes/100 WBC (Bld) 4.4 % 0-10 [facility] Blood platelet mean volumeOr dered By: Dr. Ornelas on 02-18-2023 Platelet mean volume (Bld) [Entitic vol] 9.7 fL 6.2-12.0 [facility] CBC W Auto Differential pane l (Bld)on 02-18-2023 Basophils (Bld) [#/Vol] 0.10 10*3/uL <0.11 k/uL [facility] Basophils/100 WBC (Bld) 0.8 % [facility] Differential cell count method Nom (Bld) Auto [facility] Eosinophils (Bld) [#/Vol] 0.18 10*3/uL <0.46 k/uL [facility] Eosinophils/100 WBC (Bld) 1.5 % [facility] Erythrocyte distribution width (RBC) [Ratio] 16.3 % High 11.5 - 15.0 % [facility] Hematocrit (Bld) [Volume fraction] 32.7 % Low 36.0 - 46.0 % [facility] Hemoglobin (Bld) [Mass/Vol] 9.4 g/dL Low 11.5 - 15.5 g/dL [facility] Immature granulocytes (Bld) [#/Vol] 0.11 10*3/uL High <0.10 k/uL [facility] Immature granulocytes/100 WBC (Bld) 0.9 % [facility] Lymphocytes (Bld) [#/Vol] 2.20 10*3/uL 1.00 - 4.00 k/uL [facility] Lymphocytes/100 WBC (Bld) 18.5 % [facility] MCH (RBC) [Entitic mass] 26.5 pg 26.0 - 34.0 pg [facility] MCHC (RBC) [Mass/Vol] 28.7 g/dL Low 30.5 - 36.0 g/dL [facility] MCV (RBC) [Entitic vol] 92.1 fL 80.0 - 100.0 fL [facility] Monocytes (Bld) [#/Vol] 0.52 10*3/uL <0.87 k/uL [facility] Monocytes/100 WBC (Bld) 4.4 % [facility] Neutrophils (Bld) [#/Vol] 8.78 10*3/uL High 1.45 - 7.50 k/uL [facility] Neutrophils/100 WBC (Bld) 73.9 % [facility] Nucleated RBC (Bld) [#/Vol] <0.01 k/uL [facility] Nucleated RBC/100 WBC (Bld) [Ratio] 0.0 /100 WBC [facility] Platelet mean volume (Bld) [Entitic vol] 10.7 fL 9.0 - 12.7 fL [facility] Platelets (Bld) [#/Vol] 302 10*3/uL 150 - 400 k /uL [facility] RBC (Bld) [#/Vol] 3.55 10*6/uL Low 3.90 - 5.2 0 m/uL [facility] WBC (Bld) [#/Vol] 11.89 10*3/uL High 3.70 - 11 .00 k/uL [facility] Determination of erythrocyte mean corpuscular volume (MCV)Ordered By: Dr. Ornelas on 02-18-2023 MCV (RBC) [Entitic vol] 93.7 fL 81-99 [facility] HbA1c (Bld)on 02-18-2023 Average glucose Estimated from glycated hemoglobin (Bld) [Mass/Vol] 194 mg/dL [facility] HbA1c (Bld) [Mass fraction] 8.4 % High 4.3 - 5.6 % [facility] Hematocrit Auto (Bld) [Volum e fraction]Ordered By: Dr. Ornelas on 02-18-2023 Hematocrit (Bld) [Volume fraction] 32.6 % 37-47 [facility] Laboratory - Chemistry and C hemistry - challengeOrdered By: Dr. Ornelas on 02-18-2023 ALP [Catalytic activity/Vol] 68 U/L 45-117 [facility] ALT [Catalytic activity/Vol] 15 U/L 13-56 [facility] CO2 [Moles/Vol] 31.0 mmol/L 21.0-32.0 [facility] Globulin (S) [Mass/Vol] 4.6 g/dL 2.2-4.2 [facility] Urea nitrogen/Creatinine [Mass ratio] 18.4 mg/mg 10- [facility] - Hematology and Cell countsOrdered By: Dr. Ornelas on 02-18-2023 Erythrocyte distribution width (RBC) [Entitic vol] 56.1 fL 35.1-43.9 [facility] Erythrocyte distribution width (RBC) [Ratio] 16.3 % 11.6-14.6 [facility] Immature granulocytes/100 WBC (Bld) 0.700 % 0.0-0.9 [facility] Comment on above: IG% - Immature Granu locytes (promyelocytes, myelocytes and metamyelocytes) > 1% indicates that a LEFT SHIFT is Present. MCH (RBC) [Entitic mass] 26.7 pg 27.0-32.0 [facility] Nucleated RBC/100 WBC (Bld) [Ratio] 0 % 0-5 [facility] MCHC Auto (RBC) [Mass/Vol]Or dered By: Dr. Ornelas on 02-18-2023 MCHC (RBC) [Mass/Vol] 28.5 g/dL 32-36 [facility] No Panel InformationOrdered By: Dr. Ornelas on 02-18-2023 Estimated Creatinine Clearance Calc 77.96 ml/min [facility] Estimated GFR (MDRD) Amer 97 mL/min >60 [facility] Comment on above: GFR Calc Estimated GFR (MDRD) Non-Af Amer 81 mL/min >60 [facility] Comment on above: Non- GFR Calc 26.7 pg 27.0-32.0 [facility] 16.3 % 11.6-14.6 [facility] 56.1 fl 35.1-43.9 [facility] 0.700 % 0.0-0.9 [facility] 0 % 0-5 [facility] 81 mL/min >60 [facility] 97 mL/min >60 [facility] 77.96 ml/min [facility] 18.4 RATIO - [facility] 4.6 g/dL 2.2-4.2 [facility] 68 U/L 45-117 [facility] 15 U/L 13-56 [facility] 31.0 mmol/L 21.0-32.0 [facility] Platelets bldOrdered By: Dr. Ornelas on 02-18-2023 Platelets (Bld) [#/Vol] 293 10*3/uL 150-450 [facility] Serum or plasma albumin yunior urement (mass/volume)Ordered By: Dr. Ornelas on 02-18-2023 Albumin [Mass/Vol] 2.6 g/dL 3.2-5.0 [facility] Serum or plasma albumin/glob ulin mass ratioOrdered By: Dr. Ornelas on 02-18-2023 Albumin/Globulin [Mass ratio] 0.6 {ratio} 0.9-2.4 [facility] Serum or plasma calcium yunior urement (mass/volume)Ordered By: Dr. Ornelas on 02-18-2023 Calcium [Mass/Vol] 8.3 mg/dL 8.5-10.1 [facility] Serum or plasma creatinine m easurement (mass/volume)Ordered By: Dr. Ornelas on 02-18-2023 Creatinine [Mass/Vol] 0.82 mg/dL 0.55-1.02 [facility] Comment on above: The validity of the calculated GFR & GFRAA in patients over 70 years has not been determined. Clinical correlation is essential. Serum or plasma urea nitroge n measurement (mass/volume)Ordered By: Dr. Ornelas on 02-18-2023 Urea nitrogen [Mass/Vol] 15 mg/dL 7-18 [facility] Thin prep Papanicolaou smear with manual screeningOrdered By: Dr. Ornelas on 02-18-2023 Thin prep Papanicolaou smear with manual screening 9 U/L 15-37 [facility] Thin prep Papanicolaou smear with manual screening 3 5-15 [facility] CNPNon 01-20-2023 CNPN Normal [facility] Basic metabolic 2000 panelon 01-16-2023 Anion gap [Moles/Vol] 12 mmol/L Normal 9-18 [facility] Comment on above: Order Comment: Speci men Type: BLOOD SPECIMENOrdering Facility: [facility] Address: [address] [place], [place] [address] [address] Performed By: #### 2 4321-2 ####[facility] LABORATORYCLIA [id number] [address] [place] Calcium [Mass/Vol] 8.6 mg/dL Normal 8.5-10.2 [facility] Comment on above: Order Comment: Speci men Type: BLOOD SPECIMENOrdering Facility: [facility] Address: [address] [place] [address] Performed By: #### 2 4321-2 ####[facility] LABORATORYCLIA [id number] [place] [address] [place] Chloride [Moles/Vol] 98 mmol/L Normal 97-105 [facility] Comment on above: Order Comment: Speci men Type: BLOOD SPECIMENOrdering Facility: [facility] Address: [address] [place] [address] Performed By: #### 2 4321-2 ####[facility] LABORATORYCLIA [id number] [address] [place] CO2 [Moles/Vol] 27 mmol/L Normal 22-30 [facility] Comment on above: Order Comment: Speci men Type: BLOOD SPECIMENOrdering Facility: [facility] Address: [address] [place] [address] Performed By: #### 2 4321-2 ####[facility] LABORATORYCLIA [id number] [address] [place] Creatinine [Mass/Vol] 0.95 mg/dL Normal 0.58-0.96 [facility] Comment on above: Order Comment: Speci men Type: BLOOD SPECIMENOrdering Facility: [facility] Address: [address] [place] [address] Performed By: #### 2 4321-2 ####[facility] LABORATORYCLIA [id number] [address] [place] ESTIMATED GLOMERULAR FILTRATION RATE 75 mL/min/1.73m??? Normal >=60 [facility] Comment on above: Order Comment: Speci men Type: BLOOD SPECIMENOrdering Facility: [facility] Address: [address] [place], [place] [id number] Result Comment: Gayle mated Glomerular Filtration Rate [...] Performed By: #### 2 4321-2 ####[facility] LABORATORYCLIA [id number] [place] [address] [place] Glucose [Mass/Vol] 212 mg/dL High 74-99 [facility] Comment on above: Order Comment: Roberto talbot Type: BLOOD SPECIMENOrdering Facility: [facility] Address: [address] [place], [place] [address] Result Comment: The [place] [employer] (ADA) provides guidance for [...] Standards of Medical Care in Diabetes 2016, [place] [employer]. Diabetes Care. 2016.39(Suppl 1). Performed By: #### 2 4321-2 ####[facility] LABORATORYCLIA [id number] [place] [address] [place] Potassium [Moles/Vol] 3.8 mmol/L Normal 3.7-5.1 [facility] Comment on above: Order Comment: Roberto [facility] Type: BLOOD SPECIMENOrdering Facility: [facility] Address: [address] [place], [place] [phone] Performed By: #### 2 4321-2 ####[facility] LABORATORYCLIA [id number] [address] [place] Sodium [Moles/Vol] 137 mmol/L Normal 136-144 [facility] Comment on above: Order Comment: Speci men Type: BLOOD SPECIMENOrdering Facility: [facility] Address: [address] [place] [address] Performed By: #### 2 4321-2 ####[facility] LABORATORYCLIA [id number] [place] [address] [place] Urea nitrogen [Mass/Vol] 12 mg/dL Normal 7-21 [facility] Comment on above: Order Comment: Speci men Type: BLOOD SPECIMENOrdering Facility: [facility] Address: [address] [place] [address] Performed By: #### 2 4321-2 ####[facility] LABORATORYCLIA [id number] [address] [place] CASE MANAGEMon 01-16-2023 CASE MANAGEM Normal [facility] CBC panel Auto (Bld)on 01-16 Erythrocyte distribution width (RBC) [Ratio] 16.8 % High 11.5-15.0 [facility] Comment on above: Order Comment: Speci men Type: BLOOD SPECIMENOrdering Facility: [facility] Address: [address] [place] [address] Performed By: #### 5 8410-2 ####[facility] LABORATORYCLIA [id number] [place] [address] [place] Hematocrit (Bld) [Volume fraction] 33.3 % Low 36.0-46.0 [facility] Comment on above: Order Comment: Speci men Type: BLOOD SPECIMENOrdering Facility: [facility] Address: [address] [place] [address] Performed By: #### 5 8410-2 ####[facility] LABORATORYCLIA [id number] [place] [address] [place] Hemoglobin (Bld) [Mass/Vol] 9.7 g/dL Low 11.5-15.5 [facility] Comment on above: Order Comment: Speci men Type: BLOOD SPECIMENOrdering Facility: [facility] Address: [address] [place] [address] Performed By: #### 5 8410-2 ####[facility] LABORATORYCLIA [id number] [address] MCH (RBC) [Entitic mass] 27.6 pg Normal 26.0-34.0 [facility] Comment on above: Order Comment: Speci men Type: BLOOD SPECIMENOrdering Facility: [facility] Address: [address] [place] [address] Performed By: #### 5 8410-2 ####[facility] LABORATORYCLIA [id number] [address] MCHC (RBC) [Mass/Vol] 29.1 g/dL Low 30.5-36.0 [facility] Comment on above: Order Comment: Speci men Type: BLOOD SPECIMENOrdering Facility: [facility] Address: [address] [place] [address] Performed By: #### 5 8410-2 ####[facility] LABORATORYCLIA [id number] [address] MCV (RBC) [Entitic vol] 94.9 fL Normal 80.0-100.0 [facility] Comment on above: Order Comment: Speci men Type: BLOOD SPECIMENOrdering Facility: [facility] Address: [address] [place] [address] Performed By: #### 5 8410-2 ####[facility] LABORATORYCLIA [id number] [address] Nucleated RBC (Bld) [#/Vol] 0.02 10*3/uL High <0.01 [facility] Comment on above: Order Comment: Speci men Type: BLOOD SPECIMENOrdering Facility: [facility] Address: [address] [place] [address] Performed By: #### 5 8410-2 ####[facility] LABORATORYCLIA [id number] [address] [place] Platelet mean volume (Bld) [Entitic vol] 9.4 fL Normal 9.0-12.7 [facility] Comment on above: Order Comment: Speci men Type: BLOOD SPECIMENOrdering Facility: [facility] Address: [address] [place] [address] Performed By: #### 5 8410-2 ####[facility] LABORATORYCLIA [id number] [place] [address] [place] Platelets (Bld) [#/Vol] 234 10*3/uL Normal 150-400 [facility] Comment on above: Order Comment: Speci men Type: BLOOD SPECIMENOrdering Facility: [facility] Address: [address] [place] [address] Performed By: #### 5 8410-2 ####[facility] LABORATORYCLIA [id number] [address] STATES OF [facility] RBC (Bld) [#/Vol] 3.51 10*6/uL Low 3.90-5.20 [facility] Comment on above: Order Comment: Speci men Type: BLOOD SPECIMENOrdering Facility: [facility] Address: [address] [place] [address] Performed By: #### 5 8410-2 ####[facility] LABORATORYCLIA [id number] [address] [place] WBC (Bld) [#/Vol] 11.70 10*3/uL High 3.70-11.00 [facility] Comment on above: Order Comment: Speci men Type: BLOOD SPECIMENOrdering Facility: [facility] Address: [address] [place] [address] Performed By: #### 5 8410-2 ####[facility] LABORATORYCLIA [id number] [address] [place] CNDSon 01-16-2023 CNDS Normal [facility] NURSING PROGon 01-16-2023 NURSING PROG Normal [facility] Basic metabolic 2000 panelon 01-15-2023 Anion gap [Moles/Vol] 10 mmol/L Normal 9-18 [facility] Comment on above: Order Comment: Speci men Type: BLOOD SPECIMENOrdering Facility: [facility] Address: [address] [place] [address] Performed By: #### 2 4321-2 ####[facility] LABORATORYCLIA [id number] [place] [address] [place] Calcium [Mass/Vol] 8.8 mg/dL Normal 8.5-10.2 [facility] Comment on above: Order Comment: Speci men Type: BLOOD SPECIMENOrdering Facility: [facility] Address: [address] [place] [address] Performed By: #### 2 4321-2 ####[facility] LABORATORYCLIA [id number] [place] [address] [place] Chloride [Moles/Vol] 99 mmol/L Normal 97-105 [facility] Comment on above: Order Comment: Speci men Type: BLOOD SPECIMENOrdering Facility: [facility] Address: [address] [place] [address] Performed By: #### 2 4321-2 ####[facility] LABORATORYCLIA [id number] [place] [address] [place] CO2 [Moles/Vol] 29 mmol/L Normal 22-30 [facility] Comment on above: Order Comment: Speci men Type: BLOOD SPECIMENOrdering Facility: [facility] Address: [address] [place] [address] Performed By: #### 2 4321-2 ####[facility] LABORATORYCLIA [id number] [place] [address] [place] Creatinine [Mass/Vol] 0.85 mg/dL Normal 0.58-0.96 [facility] Comment on above: Order Comment: Speci men Type: BLOOD SPECIMENOrdering Facility: [facility] Address: [address] [place] [address] Performed By: #### 2 4321-2 ####[facility] LABORATORYCLIA [id number] [place] [id number] [place] ESTIMATED GLOMERULAR FILTRATION RATE 86 mL/min/1.73m??? Normal >=60 [facility] Comment on above: Order Comment: Roberto talbot Type: BLOOD SPECIMENOrdering Facility: [facility] Address: [address] [place] [address] Result Comment: Gayle mated Glomerular Filtration Rate [...] Performed By: #### 2 4321-2 ####[facility] LABORATORYCLIA [id number] [place] [address] [place] Glucose [Mass/Vol] 184 mg/dL High 74-99 [facility] Comment on above: Order Comment: Roberto talbot Type: BLOOD SPECIMENOrdering Facility: [facility] Address: [address] [place] [address] Result Comment: The [place] [employer] (ADA) provides guidance for [...] Standards of Medical Care in Diabetes 2016, [place] [employer]. Diabetes Care. 2016.39(Suppl 1). Performed By: #### 2 4321-2 ####[facility] LABORATORYCLIA [id number] [place] [id number] [place] Potassium [Moles/Vol] 3.7 mmol/L Normal 3.7-5.1 [facility] Comment on above: Order Comment: Speci men Type: BLOOD SPECIMENOrdering Facility: [facility] Address: [address] [place] [address] Performed By: #### 2 4321-2 ####[facility] LABORATORYCLIA [id number] [address] [place] Sodium [Moles/Vol] 138 mmol/L Normal 136-144 [facility] Comment on above: Order Comment: Speci men Type: BLOOD SPECIMENOrdering Facility: [facility] Address: [address] [place] [address] Performed By: #### 2 4321-2 ####[facility] LABORATORYCLIA [id number] [address] [place] Urea nitrogen [Mass/Vol] 8 mg/dL Normal 7-21 [facility] Comment on above: Order Comment: Speci men Type: BLOOD SPECIMENOrdering Facility: [facility] Address: [address] [place] [address] Performed By: #### 2 4321-2 ####[facility] LABORATORYCLIA [id number] [address] [place] C trach+GC DNA Ur Ql SURESH+pro beon 01-15-2023 C. trachomatis+N. gonorrhoeae DNA SURESH+probe Ql (U) GC AMPLIFICATION: Negative for Neisseria gonorrhoeae by amplification CHLAMYDIA AMPLIFICATION: Negative for Chlamydia trachomatis by amplification Normal [facility] Comment on above: Performed By: #### 4 4806-8 ####[facility] LABORATORYCLIA [id number] [address] [place] CASE MGT INIT ASSESon 2022 CASE MGT INIT ASSES Normal [facility] CBC panel Auto (Bld)on 01-15 Erythrocyte distribution width (RBC) [Ratio] 16.7 % High 11.5-15.0 [facility] Comment on above: Order Comment: Speci men Type: BLOOD SPECIMENOrdering Facility: [facility] Address: [address] [place] [address] Performed By: #### 5 8410-2 ####[facility] LABORATORYCLIA [id number] [address] Hematocrit (Bld) [Volume fraction] 35.8 % Low 36.0-46.0 [facility] Comment on above: Order Comment: Speci men Type: BLOOD SPECIMENOrdering Facility: [facility] Address: [address] [place] [address] Performed By: #### 5 8410-2 ####[facility] LABORATORYCLIA [id number] [address] OF [facility] Hemoglobin (Bld) [Mass/Vol] 10.3 g/dL Low 11.5-15.5 [facility] Comment on above: Order Comment: Speci men Type: BLOOD SPECIMENOrdering Facility: [facility] Address: [address] [place] [address] Performed By: #### 5 8410-2 ####[facility] LABORATORYCLIA [id number] [address] MCH (RBC) [Entitic mass] 27.4 pg Normal 26.0-34.0 [facility] Comment on above: Order Comment: Speci men Type: BLOOD SPECIMENOrdering Facility: [facility] Address: [address] [place] [address] Performed By: #### 5 8410-2 ####[facility] LABORATORYCLIA [id number] [address] [place] MCHC (RBC) [Mass/Vol] 28.8 g/dL Low 30.5-36.0 [facility] Comment on above: Order Comment: Speci men Type: BLOOD SPECIMENOrdering Facility: [facility] Address: [address] [place] [address] Performed By: #### 5 8410-2 ####[facility] LABORATORYCLIA [id number] [address] MCV (RBC) [Entitic vol] 95.2 fL Normal 80.0-100.0 [facility] Comment on above: Order Comment: Speci men Type: BLOOD SPECIMENOrdering Facility: [facility] Address: [address] [address] Performed By: #### 5 8410-2 ####[facility] LABORATORYCLIA [id number] [address] [place] Nucleated RBC (Bld) [#/Vol] 0.02 10*3/uL High <0.01 [facility] Comment on above: Order Comment: Speci men Type: BLOOD SPECIMENOrdering Facility: [facility] Address: [address] [address] Performed By: #### 5 8410-2 ####[facility] LABORATORYCLIA [id number] [address] [place] Platelet mean volume (Bld) [Entitic vol] 9.4 fL Normal 9.0-12.7 [facility] Comment on above: Order Comment: Speci men Type: BLOOD SPECIMENOrdering Facility: [facility] Address: [address] [address] Performed By: #### 5 8410-2 ####[facility] LABORATORYCLIA [id number] [address] [place] Platelets (Bld) [#/Vol] 265 10*3/uL Normal 150-400 [facility] Comment on above: Order Comment: Speci men Type: BLOOD SPECIMENOrdering Facility: [facility] Address: [address] [address] Performed By: #### 5 8410-2 ####[facility] LABORATORYCLIA [id number] [address] [place] RBC (Bld) [#/Vol] 3.76 10*6/uL Low 3.90-5.20 [facility] Comment on above: Order Comment: Speci men Type: BLOOD SPECIMENOrdering Facility: [facility] Address: [address] [place] [address] Performed By: #### 5 8410-2 ####[facility] LABORATORYCLIA [id number] [place] [address] [place] WBC (Bld) [#/Vol] 11.55 10*3/uL High 3.70-11.00 [facility] Comment on above: Order Comment: Speci men Type: BLOOD SPECIMENOrdering Facility: [facility] Address: [address] [place] [address] Performed By: #### 5 8410-2 ####[facility] LABORATORYCLIA [id number] [address] OF [facility] CONSULT PROGon 01-15-2023 CONSULT PROG Normal [facility] HCG ( test) Ql (U)o n 01-15-2023 Specific gravity (U) [Rel density] 1.014 Normal 1.006-1.029 [facility] Comment on above: Order Comment: Speci men Type: URINE SPECIMENOrdering Facility: [facility] Address: [address] [place] [address] Result Comment: If s pecific gravity is <1.005 then results may be falsely negative. Serum HCG is recommended. Performed By: #### 2 106-3 ####[facility] LABORATORYCLIA [id number] [address] HCG Preg Ur Qlon 01-15-2023 HCG ( test) Ql (U) Negative Normal Negative [facility] Comment on above: Order Comment: Speci men Type: URINE SPECIMENOrdering Facility: [facility] Address: [address] [place] [address] Result Comment: This test is intended to aid in the early detection of . Very dilute urine samples, as indicated by a low specific gravity, may not contain home furnishings sales representative levels of hCG. This test detects [...] for . Performed By: #### 2 106-3 ####[facility] LABORATORYCLIA [id number] [address] [place] T VAGINALIS AMPLIFICATIONon 01-15-2023 T. vaginalis DNA SURESH+probe Ql (Unsp spec) Negative Normal Negative for Trichomonas vaginalis by amplification [facility] Comment on above: Order Comment: Speci men Type: URINE SPECIMENOrdering Facility: [facility] Address: [address] [place] [address] Performed By: #### T RVAMP ####[facility] LABCLIA [id number] [facility] [id number] [address] [place] ALLIED HEALTHon 01-14-2023 ALLIED HEALTH Normal [facility] ANES POSTPROC EVALon 023 ANES POSTPROC EVAL Normal [facility] ANES PRE-OPon 01-14-2023 ANES PRE-OP Normal [facility] BRIEF OP NOTon 01-14-2023 BRIEF OP NOT Normal [facility] Bacteria Wnd Culton 01-14-20 23 Bacteria identified Cx Nom (Wound) Abnormal [facility] Comment on above: Performed By: #### 6 462-6 ####[facility] LABORATORYCLIA [id number] [place] [address] [place] Basic metabolic 2000 panelon 01-14-2023 Anion gap [Moles/Vol] 10 mmol/L Normal 9-18 [facility] Comment on above: Order Comment: Speci men Type: BLOOD SPECIMENOrdering Facility: [facility] Address: [address] [address] Performed By: #### 2 4321-2 ####[facility] LABORATORYCLIA [id number] [place] [address] [place] Calcium [Mass/Vol] 8.9 mg/dL Normal 8.5-10.2 [facility] Comment on above: Order Comment: Speci men Type: BLOOD SPECIMENOrdering Facility: [facility] Address: [address] [address] Performed By: #### 2 4321-2 ####[facility] LABORATORYCLIA [id number] [address] STATES OF [facility] Chloride [Moles/Vol] 98 mmol/L Normal 97-105 [facility] Comment on above: Order Comment: Speci men Type: BLOOD SPECIMENOrdering Facility: [facility] Address: [address] [place] [address] Performed By: #### 2 4321-2 ####[facility] LABORATORYCLIA [id number] [address] STATES OF [facility] CO2 [Moles/Vol] 28 mmol/L Normal 22-30 [facility] Comment on above: Order Comment: Speci men Type: BLOOD SPECIMENOrdering Facility: [facility] Address: [address] [place] [address] Performed By: #### 2 4321-2 ####[facility] LABORATORYCLIA [id number] [address] OF [facility] Creatinine [Mass/Vol] 0.82 mg/dL Normal 0.58-0.96 [facility] Comment on above: Order Comment: Speci men Type: BLOOD SPECIMENOrdering Facility: [facility] Address: [address] [place] [address] Performed By: #### 2 4321-2 ####[facility] LABORATORYCLIA [id number] [address] ESTIMATED GLOMERULAR FILTRATION RATE 90 mL/min/1.73m??? Normal >=60 [facility] Comment on above: Order Comment: Speci men Type: BLOOD SPECIMENOrdering Facility: [facility] Address: [address] [place] [address] Result Comment: Gayle mated Glomerular Filtration Rate [...] Performed By: #### 2 4321-2 ####[facility] LABORATORYCLIA [id number] [place] [address] [place] Glucose [Mass/Vol] 178 mg/dL High 74-99 [facility] Comment on above: Order Comment: Speci men Type: BLOOD SPECIMENOrdering Facility: [facility] Address: [address] [place] [address] Result Comment: The [place] Diabetes Association (ADA) provides guidance for [...] Standards of Medical Care in Diabetes 2016, [place] [employer]. Diabetes Care. 2016.39(Suppl 1). Performed By: #### 2 4321-2 ####[facility] LABORATORYCLIA [id number] [place] [address] [place] Potassium [Moles/Vol] 3.9 mmol/L Normal 3.7-5.1 [facility] Comment on above: Order Comment: Speci men Type: BLOOD SPECIMENOrdering Facility: [facility] Address: [address] [place] [address] Performed By: #### 2 4321-2 ####[facility] LABORATORYCLIA [id number] [place] [address] [place] Sodium [Moles/Vol] 136 mmol/L Normal 136-144 [facility] Comment on above: Order Comment: Speci men Type: BLOOD SPECIMENOrdering Facility: [facility] Address: [address] [place] [address] Performed By: #### 2 4321-2 ####[facility] LABORATORYCLIA [id number] [place] [address] [place] Urea nitrogen [Mass/Vol] 11 mg/dL Normal 7-21 [facility] Comment on above: Order Comment: Speci men Type: BLOOD SPECIMENOrdering Facility: [facility] Address: [address] [place] [address] Performed By: #### 2 4321-2 ####[facility] LABORATORYCLIA [id number] [address] STATES OF [facility] CBC panel Auto (Bld)on 01-14 Erythrocyte distribution width (RBC) [Ratio] 16.5 % High 11.5-15.0 [facility] Comment on above: Order Comment: Speci men Type: BLOOD SPECIMENOrdering Facility: [facility] Address: [address] [place] [address] Performed By: #### 5 8410-2 ####[facility] LABORATORYCLIA [id number] [address] STATES [facility] Hematocrit (Bld) [Volume fraction] 33.1 % Low 36.0-46.0 [facility] Comment on above: Order Comment: Speci men Type: BLOOD SPECIMENOrdering Facility: [facility] Address: [address] [place] [address] Performed By: #### 5 8410-2 ####[facility] LABORATORYCLIA [id number] [address] STATES OF [facility] Hemoglobin (Bld) [Mass/Vol] 10.0 g/dL Low 11.5-15.5 [facility] Comment on above: Order Comment: Speci men Type: BLOOD SPECIMENOrdering Facility: [facility] Address: [address] [place] [address] Performed By: #### 5 8410-2 ####[facility] LABORATORYCLIA [id number] [address] STATES [facility] MCH (RBC) [Entitic mass] 28.0 pg Normal 26.0-34.0 [facility] Comment on above: Order Comment: Speci men Type: BLOOD SPECIMENOrdering Facility: [facility] Address: [address] [place] [address] Performed By: #### 5 8410-2 ####[facility] LABORATORYCLIA [id number] [address] MCHC (RBC) [Mass/Vol] 30.2 g/dL Low 30.5-36.0 [facility] Comment on above: Order Comment: Speci men Type: BLOOD SPECIMENOrdering Facility: [facility] Address: [address] [place] [address] Performed By: #### 5 8410-2 ####[facility] LABORATORYCLIA [id number] [address] MCV (RBC) [Entitic vol] 92.7 fL Normal 80.0-100.0 [facility] Comment on above: Order Comment: Speci men Type: BLOOD SPECIMENOrdering Facility: [facility] Address: [address] [place] [address] Performed By: #### 5 8410-2 ####[facility] LABORATORYCLIA [id number] [address] Nucleated RBC (Bld) [#/Vol] 10*3/uL Normal <0.01 [facility] Comment on above: Order Comment: Speci men Type: BLOOD SPECIMENOrdering Facility: [facility] Address: [address] [place] [address] Performed By: #### 5 8410-2 ####[facility] LABORATORYCLIA [id number] [address] Platelet mean volume (Bld) [Entitic vol] 9.5 fL Normal 9.0-12.7 [facility] Comment on above: Order Comment: Speci men Type: BLOOD SPECIMENOrdering Facility: [facility] Address: [address] [place] [address] Performed By: #### 5 8410-2 ####[facility] LABORATORYCLIA [id number] [address] [place] Platelets (Bld) [#/Vol] 284 10*3/uL Normal 150-400 [facility] Comment on above: Order Comment: Speci men Type: BLOOD SPECIMENOrdering Facility: [facility] Address: [address] [place] [address] Performed By: #### 5 8410-2 ####[facility] LABORATORYCLIA [id number] [address] STATES OF [facility] RBC (Bld) [#/Vol] 3.57 10*6/uL Low 3.90-5.20 [facility] Comment on above: Order Comment: Speci men Type: BLOOD SPECIMENOrdering Facility: [facility] Address: [address] [place] [address] Performed By: #### 5 8410-2 ####[facility] LABORATORYCLIA [id number] [address] WBC (Bld) [#/Vol] 9.64 10*3/uL Normal 3.70-11.00 [facility] Comment on above: Order Comment: Speci men Type: BLOOD SPECIMENOrdering Facility: [facility] Address: [address] [place] [address] Performed By: #### 5 8410-2 ####[facility] LABORATORYCLIA [id number] [address] ABD/PEL W IVCONon 023 CT ABD/PEL W IVCON Normal [facility] HISTORY PHYSICALon 3 HISTORY PHYSICAL Normal [facility] OPERATIVE NOon 01-14-2023 OPERATIVE NO Normal [facility] SARS-CoV-2 RNA Resp Ql SURESH+p robeon 01-14-2023 SARS-CoV-2 (COVID-19) RNA SURESH+probe Ql (Resp) COVID 19 RESULT: Not detected The method used is RT-PCR or an equivalent NAAT method. Reference Range(the expected result in uninfected individuals): Not detected Normal [facility] Comment on above: Performed By: #### 9 4500-6 ####[facility] LABORATORYCLIA [id number] [address] CNOVon 01-13-2023 CNOV Normal [facility] Basic metabolic 2000 panelon 01-12-2023 Anion gap [Moles/Vol] 14 mmol/L Normal 9-18 [facility] Comment on above: Order Comment: Speci men Type: BLOOD SPECIMENOrdering Facility: [facility] Address: [address] [place] [address] Performed By: #### 2 4321-2 ####[facility] LABORATORYCLIA [id number] [place] [address] [place] Calcium [Mass/Vol] 9.4 mg/dL Normal 8.5-10.2 [facility] Comment on above: Order Comment: Speci men Type: BLOOD SPECIMENOrdering Facility: [facility] Address: [address] [place] [address] Performed By: #### 2 4321-2 ####[facility] LABORATORYCLIA [id number] [address] [place] Chloride [Moles/Vol] 101 mmol/L Normal 97-105 [facility] Comment on above: Order Comment: Speci men Type: BLOOD SPECIMENOrdering Facility: [facility] Address: [address] [place] [address] Performed By: #### 2 4321-2 ####[facility] LABORATORYCLIA [id number] [address] [place] CO2 [Moles/Vol] 26 mmol/L Normal 22-30 [facility] Comment on above: Order Comment: Speci men Type: BLOOD SPECIMENOrdering Facility: [facility] Address: [address] [place] [address] Performed By: #### 2 4321-2 ####[facility] LABORATORYCLIA [id number] [address] [place] Creatinine [Mass/Vol] 0.76 mg/dL Normal 0.58-0.96 [facility] Comment on above: Order Comment: Speci men Type: BLOOD SPECIMENOrdering Facility: [facility] Address: [address] [place], [place] [address] Performed By: #### 2 4321-2 ####[facility] LABORATORYCLIA [id number] [address] [place] ESTIMATED GLOMERULAR FILTRATION RATE 99 mL/min/1.73m??? Normal >=60 [facility] Comment on above: Order Comment: Specernesto dahiana Type: BLOOD SPECIMENOrdering Facility: [facility] Address: [address] [address] Result Comment: Gayle mated Glomerular Filtration Rate [...] actual GFR. Performed By: #### 2 4321-2 ####[facility] HOSPITALIA [id number] [place] [address] [place] Glucose [Mass/Vol] 221 mg/dL High 74-99 [facility] Comment on above: Order Comment: Roberto talbot Type: BLOOD SPECIMENOrdering Facility: [facility] Address: [address] [address] Result Comment: The [place] Diabetes Association (ADA) provides guidance for [...] Standards of Medical Care in Diabetes 2016, [place] [employer]. Diabetes Care. 2016.39(Suppl 1). Performed By: #### 2 4321-2 ####[facility] LABORATORYCLIA [id number] [place] [address] [place] Potassium [Moles/Vol] 4.7 mmol/L Normal 3.7-5.1 [facility] Comment on above: Order Comment: Speci men Type: BLOOD SPECIMENOrdering Facility: [facility] Address: [address] [address] Performed By: #### 2 4321-2 ####[facility] LABORATORYCLIA [id number] [address] STATES OF [facility] Sodium [Moles/Vol] 141 mmol/L Normal 136-144 [facility] Comment on above: Order Comment: Speci men Type: BLOOD SPECIMENOrdering Facility: [facility] Address: [address] [address] Performed By: #### 2 4321-2 ####[facility] LABORATORYCLIA [id number] [address] STATES OF [facility] Urea nitrogen [Mass/Vol] 15 mg/dL Normal 7-21 [facility] Comment on above: Order Comment: Speci men Type: BLOOD SPECIMENOrdering Facility: [facility] Address: [address] [address] Performed By: #### 2 4321-2 ####[facility] LABORATORYCLIA [id number] [place] [address] [place] CBC W Auto Differential pane l (Bld)on 01-12-2023 Basophils (Bld) [#/Vol] 0.09 10*3/uL Normal <0.11 [facility] Comment on above: Order Comment: Speci men Type: BLOOD SPECIMENOrdering Facility: [facility] Address: [address] [address] Performed By: #### 5 7021-8 ####[facility] LABORATORYCLIA [id number] [address] Basophils/100 WBC (Bld) 0.9 % Normal [facility] Comment on above: Order Comment: Speci men Type: BLOOD SPECIMENOrdering Facility: [facility] Address: [address] [address] Performed By: #### 5 7021-8 ####[facility] LABORATORYCLIA [id number] [address] Differential cell count method Nom (Bld) Auto Normal [facility] Comment on above: Order Comment: Speci men Type: BLOOD SPECIMENOrdering Facility: [facility] Address: [address] [place] [address] Performed By: #### 5 7021-8 ####[facility] LABORATORYCLIA [id number] [address] [place] Eosinophils (Bld) [#/Vol] 0.22 10*3/uL Normal <0.46 [facility] Comment on above: Order Comment: Speci men Type: BLOOD SPECIMENOrdering Facility: [facility] Address: [address] [place] [address] Performed By: #### 5 7021-8 ####[facility] LABORATORYCLIA [id number] [address] Eosinophils/100 WBC (Bld) 2.1 % Normal [facility] Comment on above: Order Comment: Speci men Type: BLOOD SPECIMENOrdering Facility: [facility] Address: [address] [place] [address] Performed By: #### 5 7021-8 ####[facility] LABORATORYCLIA [id number] [address] [place] Erythrocyte distribution width (RBC) [Ratio] 16.6 % High 11.5-15.0 [facility] Comment on above: Order Comment: Speci men Type: BLOOD SPECIMENOrdering Facility: [facility] Address: [address] [place] [address] Performed By: #### 5 7021-8 ####[facility] LABORATORYCLIA [id number] [address] Hematocrit (Bld) [Volume fraction] 37.0 % Normal 36.0-46.0 [facility] Comment on above: Order Comment: Speci men Type: BLOOD SPECIMENOrdering Facility: [facility] Address: [address] [place] [address] Performed By: #### 5 7021-8 ####[facility] LABORATORYCLIA [id number] [place] [address] [place] Hemoglobin (Bld) [Mass/Vol] 10.9 g/dL Low 11.5-15.5 [facility] Comment on above: Order Comment: Speci men Type: BLOOD SPECIMENOrdering Facility: [facility] Address: [address] [place] [address] Performed By: #### 5 7021-8 ####[facility] LABORATORYCLIA [id number] [place] [address] [place] Immature granulocytes (Bld) [#/Vol] 0.12 10*3/uL High <0.10 [facility] Comment on above: Order Comment: Speci men Type: BLOOD SPECIMENOrdering Facility: [facility] Address: [address] [place] [address] Performed By: #### 5 7021-8 ####[facility] LABORATORYCLIA [id number] [address] STATES [place] Immature granulocytes/100 WBC (Bld) 1.1 % Normal [facility] Comment on above: Order Comment: Speci men Type: BLOOD SPECIMENOrdering Facility: [facility] Address: [address] [place] [address] Performed By: #### 5 7021-8 ####[facility] LABORATORYCLIA [id number] [place] [address] [place] Lymphocytes (Bld) [#/Vol] 2.50 10*3/uL Normal 1.00-4.00 [facility] Comment on above: Order Comment: Speci men Type: BLOOD SPECIMENOrdering Facility: [facility] Address: [address] [place] [address] Performed By: #### 5 7021-8 ####[facility] LABORATORYCLIA [id number] [address] [place] Lymphocytes/100 WBC (Bld) 23.8 % Normal [facility] Comment on above: Order Comment: Speci men Type: BLOOD SPECIMENOrdering Facility: [facility] Address: [address] [place] [address] Performed By: #### 5 7021-8 ####[facility] LABORATORYCLIA [id number] [address] MCH (RBC) [Entitic mass] 28.0 pg Normal 26.0-34.0 [facility] Comment on above: Order Comment: Speci men Type: BLOOD SPECIMENOrdering Facility: [facility] Address: [address] [place] [address] Performed By: #### 5 7021-8 ####[facility] LABORATORYCLIA [id number] [address] [place] MCHC (RBC) [Mass/Vol] 29.5 g/dL Low 30.5-36.0 [facility] Comment on above: Order Comment: Speci men Type: BLOOD SPECIMENOrdering Facility: [facility] Address: [address] [place] [address] Performed By: #### 5 7021-8 ####[facility] LABORATORYCLIA [id number] [address] MCV (RBC) [Entitic vol] 95.1 fL Normal 80.0-100.0 [facility] Comment on above: Order Comment: Speci men Type: BLOOD SPECIMENOrdering Facility: [facility] Address: [address] [place] [address] Performed By: #### 5 7021-8 ####[facility] LABORATORYCLIA [id number] [address] Monocytes (Bld) [#/Vol] 0.50 10*3/uL Normal <0.87 [facility] Comment on above: Order Comment: Speci men Type: BLOOD SPECIMENOrdering Facility: [facility] Address: [address] [place] [address] Performed By: #### 5 7021-8 ####[facility] LABORATORYCLIA [id number] [place] [address] [place] Monocytes/100 WBC (Bld) 4.8 % Normal A [facility] Comment on above: Order Comment: Speci men Type: BLOOD SPECIMENOrdering Facility: [facility] Address: [address] [place] [address] Performed By: #### 5 7021-8 ####[facility] LABORATORYCLIA [id number] [place] [address] [place] Neutrophils (Bld) [#/Vol] 7.07 10*3/uL Normal 1.45-7.50 [facility] Comment on above: Order Comment: Speci men Type: BLOOD SPECIMENOrdering Facility: [facility] Address: [address] [place] [address] Performed By: #### 5 7021-8 ####[facility] LABORATORYCLIA [id number] [address] [place] Neutrophils/100 WBC (Bld) 67.3 % Normal [facility] Comment on above: Order Comment: Speci men Type: BLOOD SPECIMENOrdering Facility: [facility] Address: [address] [place] [address] Performed By: #### 5 7021-8 ####[facility] LABORATORYCLIA [id number] [place] [address] [place] Nucleated RBC (Bld) [#/Vol] 0.02 10*3/uL High <0.01 [facility] Comment on above: Order Comment: Speci men Type: BLOOD SPECIMENOrdering Facility: [facility] Address: [address] [place] [address] Performed By: #### 5 7021-8 ####[facility] LABORATORYCLIA [id number] [address] [place] Nucleated RBC/100 WBC (Bld) [Ratio] 0.2 /100 WBC Normal [facility] Comment on above: Order Comment: Speci men Type: BLOOD SPECIMENOrdering Facility: [facility] Address: [address] [place] [address] Performed By: #### 5 7021-8 ####[facility] LABORATORYCLIA [id number] [address] [place] Platelet mean volume (Bld) [Entitic vol] 9.5 fL Normal 9.0-12.7 [facility] Comment on above: Order Comment: Speci men Type: BLOOD SPECIMENOrdering Facility: [facility] Address: [address] [place] [address] Performed By: #### 5 7021-8 ####[facility] LABORATORYCLIA [id number] [address] [place] Platelets (Bld) [#/Vol] 337 10*3/uL Normal 150-400 [facility] Comment on above: Order Comment: Speci men Type: BLOOD SPECIMENOrdering Facility: [facility] Address: [address] [place] [address] Performed By: #### 5 7021-8 ####[facility] LABORATORYCLIA [id number] [address] [place] RBC (Bld) [#/Vol] 3.89 10*6/uL Low 3.90-5.20 [facility] Comment on above: Order Comment: Speci men Type: BLOOD SPECIMENOrdering Facility: [facility] Address: [address] [place] [address] Performed By: #### 5 7021-8 ####[facility] LABORATORYCLIA [id number] [place] [address] [place] WBC (Bld) [#/Vol] 10.50 10*3/uL Normal 3.70-11.00 [facility] Comment on above: Order Comment: Speci men Type: BLOOD SPECIMENOrdering Facility: [facility] Address: [address] [place] [address] Performed By: #### 5 7021-8 ####[facility] LABORATORYCLIA [id number] [address] [place] ED Triage Noteon 01-12-2023 ED Triage Note Normal [facility] CNPNon 01-06-2023 CNPN Normal [facility] CNCOon 01-03-2023 CNCO Letter Text Normal [facility] Basic metabolic 2000 panelon 01-01-2023 Anion gap [Moles/Vol] 12 mmol/L Normal 9-18 [facility] Comment on above: Order Comment: Speci men Type: BLOOD SPECIMENOrdering Facility: [facility] Address: [address] [place] [address] Performed By: #### 2 4321-2 ####[facility] LABORATORYCLIA [id number] [place] [address] [place] Calcium [Mass/Vol] 9.1 mg/dL Normal 8.5-10.2 [facility] Comment on above: Order Comment: Speci men Type: BLOOD SPECIMENOrdering Facility: [facility] Address: [address] [place] [address] Performed By: #### 2 4321-2 ####[facility] LABORATORYCLIA [id number] [place] [address] [place] Chloride [Moles/Vol] 97 mmol/L Normal 97-105 [facility] Comment on above: Order Comment: Speci men Type: BLOOD SPECIMENOrdering Facility: [facility] Address: [address] [place] [address] Performed By: #### 2 4321-2 ####[facility] LABORATORYCLIA [id number] [place] [address] [place] CO2 [Moles/Vol] 29 mmol/L Normal 22-30 [facility] Comment on above: Order Comment: Speci men Type: BLOOD SPECIMENOrdering Facility: [facility] Address: [address] [place] [address] Performed By: #### 2 4321-2 ####[facility]ORATORYCLIA [id number] [place] [address] [place] Creatinine [Mass/Vol] 0.90 mg/dL Normal 0.58-0.96 [facility] Comment on above: Order Comment: Speci men Type: BLOOD SPECIMENOrdering Facility: [facility] Address: [address] [place] [address] Performed By: #### 2 4321-2 ####[facility] HOSPITALIA [id number] [place] [id number] [facility] [place] ESTIMATED GLOMERULAR FILTRATION RATE 81 mL/min/1.73m??? Normal >=60 [facility] Comment on above: Order Comment: Roberto men Type: BLOOD SPECIMENOrdering Facility: [facility] Address: [address] [place] [address] Result Comment: Gayle mated Glomerular Filtration Rate [...] actual GFR. Performed By: #### 2 4321-2 ####[facility] HOSPITALIA [id number] [place] [address] [place] Glucose [Mass/Vol] 151 mg/dL High 74-99 [facility] Comment on above: Order Comment: Roberto talbot Type: BLOOD SPECIMENOrdering Facility: [facility] Address: [address] [place] [address] Result Comment: The [place] [employer] (ADA) provides guidance for [...] Standards of Medical Care in Diabetes 2016, [place] [employer]. Diabetes Care. 2016.39(Suppl 1). Performed By: #### 2 4321-2 ####[facility] LABORATORYCLIA [id number] [place] [address] [place] Potassium [Moles/Vol] 4.2 mmol/L Normal 3.7-5.1 [facility] Comment on above: Order Comment: Speci men Type: BLOOD SPECIMENOrdering Facility: [facility] Address: [address] [place] [address] Performed By: #### 2 4321-2 ####[facility] LABORATORYCLIA [id number] [place] [address] [place] Sodium [Moles/Vol] 138 mmol/L Normal 136-144 [facility] Comment on above: Order Comment: Speci men Type: BLOOD SPECIMENOrdering Facility: [facility] Address: [address] [place] [address] Performed By: #### 2 4321-2 ####[facility] LABORATORYCLIA [id number] [address] [place] Urea nitrogen [Mass/Vol] 21 mg/dL Normal 7-21 [facility] Comment on above: Order Comment: Speci men Type: BLOOD SPECIMENOrdering Facility: [facility] Address: [address] [place] [address] Performed By: #### 2 4321-2 ####[facility] LABORATORYCLIA [id number] [address] [place] CASE MANAGEMon 01-01-2023 CASE MANAGEM Normal [facility] CBC panel Auto (Bld)on 01-01 Erythrocyte distribution width (RBC) [Ratio] 15.8 % High 11.5-15.0 [facility] Comment on above: Order Comment: Speci men Type: BLOOD SPECIMENOrdering Facility: [facility] Address: [address] [place] [address] Performed By: #### 5 8410-2 ####[facility] LABORATORYCLIA [id number] [address] [place] Hematocrit (Bld) [Volume fraction] 34.8 % Low 36.0-46.0 [facility] Comment on above: Order Comment: Speci men Type: BLOOD SPECIMENOrdering Facility: [facility] Address: [address] [place] [address] Performed By: #### 5 8410-2 ####[facility] LABORATORYCLIA [id number] [address] Hemoglobin (Bld) [Mass/Vol] 10.2 g/dL Low 11.5-15.5 [facility] Comment on above: Order Comment: Speci men Type: BLOOD SPECIMENOrdering Facility: [facility] Address: [address] [place] [address] Performed By: #### 5 8410-2 ####[facility] LABORATORYCLIA [id number] [address] MCH (RBC) [Entitic mass] 27.8 pg Normal 26.0-34.0 [facility] Comment on above: Order Comment: Speci men Type: BLOOD SPECIMENOrdering Facility: [facility] Address: [address] [place] [address] Performed By: #### 5 8410-2 ####[facility] LABORATORYCLIA [id number] [address] MCHC (RBC) [Mass/Vol] 29.3 g/dL Low 30.5-36.0 [facility] Comment on above: Order Comment: Speci men Type: BLOOD SPECIMENOrdering Facility: [facility] Address: [address] [place] [address] Performed By: #### 5 8410-2 ####[facility] LABORATORYCLIA [id number] [address] MCV (RBC) [Entitic vol] 94.8 fL Normal 80.0-100.0 [facility] Comment on above: Order Comment: Speci men Type: BLOOD SPECIMENOrdering Facility: [facility] Address: [address] [place] [address] Performed By: #### 5 8410-2 ####[facility] LABORATORYCLIA [id number] [place] [address] [place] Nucleated RBC (Bld) [#/Vol] 0.02 10*3/uL High <0.01 [facility] Comment on above: Order Comment: Speci men Type: BLOOD SPECIMENOrdering Facility: [facility] Address: [address] [place] [address] Performed By: #### 5 8410-2 ####[facility] LABORATORYCLIA [id number] [place] [address] [place] Platelet mean volume (Bld) [Entitic vol] 9.4 fL Normal 9.0-12.7 [facility] Comment on above: Order Comment: Speci men Type: BLOOD SPECIMENOrdering Facility: [facility] Address: [address] [place] [address] Performed By: #### 5 8410-2 ####[facility]ORATORYCLIA [id number] [address] [place] Platelets (Bld) [#/Vol] 426 10*3/uL High 150-400 [facility] Comment on above: Order Comment: Speci men Type: BLOOD SPECIMENOrdering Facility: [facility] Address: [address] [place] [address] Performed By: #### 5 8410-2 ####[facility]ORATORYCLIA [id number] [place] [address] [place] RBC (Bld) [#/Vol] 3.67 10*6/uL Low 3.90-5.20 [facility] Comment on above: Order Comment: Speci men Type: BLOOD SPECIMENOrdering Facility: [facility] Address: [address] [place] [address] Performed By: #### 5 8410-2 ####[facility]ORATORYCLIA [id number] [place] [address] [place] WBC (Bld) [#/Vol] 13.51 10*3/uL High 3.70-11.00 [facility] Comment on above: Order Comment: Speci men Type: BLOOD SPECIMENOrdering Facility: [facility] Address: [address] [place] [address] Performed By: #### 5 8410-2 ####[facility] LABORATORYCLIA [id number] [place] [address] [place] CNDSon 01-01-2023 CNDS Normal [facility] CONSULT PROGon 01-01-2023 CONSULT PROG Normal [facility] THERAPY NTon 01-01-2023 THERAPY NT Normal [facility] THERAPY NT Normal [facility] ALLIED HEALTHon 12-31-2022 ALLIED HEALTH Normal [facility] ALLIED HEALTH Normal [facility] Basic metabolic 2000 panelon 12-31-2022 Anion gap [Moles/Vol] 14 mmol/L Normal 9-18 [facility] Comment on above: Order Comment: Speci men Type: BLOOD SPECIMENOrdering Facility: [facility] Address: [address] [place] [address] Performed By: #### 1 9123-9, 03273-4, 2776-12 ####[facility] LABORATORYCLIA [id number] [place] [address] [place] Calcium [Mass/Vol] 9.4 mg/dL Normal 8.5-10.2 [facility] Comment on above: Order Comment: Speci men Type: BLOOD SPECIMENOrdering Facility: [facility] Address: [address] [place] [address] Performed By: #### 1 9123-9, 93797-1, 2776-12 ####[facility]ORATORYCLIA [id number] [place] [address] [place] Chloride [Moles/Vol] 94 mmol/L Low 97-105 [facility] Comment on above: Order Comment: Speci men Type: BLOOD SPECIMENOrdering Facility: [facility] Address: [address] [place] [address] Performed By: #### 1 9123-9, 41904-0, 2776- ####[facility]ORATORYCLIA [id number] [place] [address] [place] CO2 [Moles/Vol] 29 mmol/L Normal 22-30 [facility] Comment on above: Order Comment: Speci men Type: BLOOD SPECIMENOrdering Facility: [facility] Address: [address] [place] [address] Performed By: #### 1 9123-9, 51111-2, 2776-12 ####[facility]ORATORYCLIA [id number] [place] [address] [place] Creatinine [Mass/Vol] 0.98 mg/dL High 0.58-0.96 [facility] Comment on above: Order Comment: Speci men Type: BLOOD SPECIMENOrdering Facility: [facility] Address: [address] [place] [address] Performed By: #### 1 9123-9, 76007-2, 2776-12 ####[facility]OSPITALCLIA [id number] [place] [address] [place] ESTIMATED GLOMERULAR FILTRATION RATE 73 mL/min/1.73m??? Normal >=60 [facility] Comment on above: Order Comment: Speci men Type: BLOOD SPECIMENOrdering Facility: [facility] Address: [address] [place] [address] Result Comment: Gayle mated Glomerular Filtration Rate [...] actual GFR. Performed By: #### 1 9123-9, 76197-6, 2776-12 ####[facility]ORATORYCLIA [id number] [place] [address] [place] Glucose [Mass/Vol] 173 mg/dL High 74-99 [facility] Comment on above: Order Comment: Speci men Type: BLOOD SPECIMENOrdering Facility: [facility] Address: [address] [place] [address] Result Comment: The [place] [employer] (ADA) provides guidance for [...] Standards of Medical Care in Diabetes 2016, [place] [employer]. Diabetes Care. 2016.39(Suppl 1). Performed By: #### 1 9123-9, 94880-5, 2776- ####[facility] LABORATORYCLIA [id number] [place] [address] [place] Potassium [Moles/Vol] 3.9 mmol/L Normal 3.7-5.1 [facility] Comment on above: Order Comment: Speci men Type: BLOOD SPECIMENOrdering Facility: [facility] Address: [address] [place] [address] Performed By: #### 1 9123-9, 14751-7, 2776-12 ####[facility]ORATORYCLIA [id number] [place] [address] [place] Sodium [Moles/Vol] 137 mmol/L Normal 136-144 [facility] Comment on above: Order Comment: Speci men Type: BLOOD SPECIMENOrdering Facility: [facility] Address: [address] [place] [address] Performed By: #### 1 9123-9, 58516-3, 2776-12 ####[facility]ORATORYCLIA [id number] [place] [address] [place] Urea nitrogen [Mass/Vol] 19 mg/dL Normal 7-21 [facility] Comment on above: Order Comment: Speci men Type: BLOOD SPECIMENOrdering Facility: [facility] Address: [address] [place] [address] Performed By: #### 1 9123-9, 79657-4, 2776- ####[facility]ORATORYCLIA [id number] [address] CBC panel Auto (Bld)on 12-31 Erythrocyte distribution width (RBC) [Ratio] 15.9 % High 11.5-15.0 [facility] Comment on above: Order Comment: Speci men Type: BLOOD SPECIMENOrdering Facility: [facility] Address: [address] [place] [address] Performed By: #### 5 8410-2 ####[facility]ORATORYCLIA [id number] [address] Hematocrit (Bld) [Volume fraction] 34.1 % Low 36.0-46.0 [facility] Comment on above: Order Comment: Speci men Type: BLOOD SPECIMENOrdering Facility: [facility] Address: [address] [place] [address] Performed By: #### 5 8410-2 ####[facility]ORATORYCLIA [id number] [address] Hemoglobin (Bld) [Mass/Vol] 10.1 g/dL Low 11.5-15.5 [facility] Comment on above: Order Comment: Speci men Type: BLOOD SPECIMENOrdering Facility: [facility] Address: [address] [place] [address] Performed By: #### 5 8410-2 ####[facility]ORATORYCLIA [id number] [address] MCH (RBC) [Entitic mass] 27.8 pg Normal 26.0-34.0 [facility] Comment on above: Order Comment: Speci men Type: BLOOD SPECIMENOrdering Facility: [facility] Address: [address] [place] [address] Performed By: #### 5 8410-2 ####[facility]ORATORYCLIA [id number] [address] [place] MCHC (RBC) [Mass/Vol] 29.6 g/dL Low 30.5-36.0 [facility] Comment on above: Order Comment: Speci men Type: BLOOD SPECIMENOrdering Facility: [facility] Address: [address] [place] [address] Performed By: #### 5 8410-2 ####[facility]ORATORYCLIA [id number] [address] [place] [facility] MCV (RBC) [Entitic vol] 93.9 fL Normal 80.0-100.0 [facility] Comment on above: Order Comment: Speci men Type: BLOOD SPECIMENOrdering Facility: [facility] Address: [address] [place] [address] Performed By: #### 5 8410-2 ####[facility]ORATORYCLIA [id number] [address] [place] Nucleated RBC (Bld) [#/Vol] 10*3/uL Normal <0.01 [facility] Comment on above: Order Comment: Speci men Type: BLOOD SPECIMENOrdering Facility: [facility] Address: [address] [place] [address] Performed By: #### 5 8410-2 ####[facility]ORATORYCLIA [id number] [address] Platelet mean volume (Bld) [Entitic vol] 9.2 fL Normal 9.0-12.7 [facility] Comment on above: Order Comment: Speci men Type: BLOOD SPECIMENOrdering Facility: [facility] Address: [address] [place] [address] Performed By: #### 5 8410-2 ####[facility]ORATORYCLIA [id number] [address] [place] Platelets (Bld) [#/Vol] 435 10*3/uL High 150-400 [facility] Comment on above: Order Comment: Speci men Type: BLOOD SPECIMENOrdering Facility: [facility] Address: [address] [place] [address] Performed By: #### 5 8410-2 ####[facility]ORATORYCLIA [id number] [place] [address] [place] RBC (Bld) [#/Vol] 3.63 10*6/uL Low 3.90-5.20 [facility] Comment on above: Order Comment: Speci men Type: BLOOD SPECIMENOrdering Facility: [facility] Address: [address] [place] [address] Performed By: #### 5 8410-2 ####[facility]ORATORYCLIA [id number] [place] [address] [place] WBC (Bld) [#/Vol] 15.84 10*3/uL High 3.70-11.00 [facility] Comment on above: Order Comment: Speci men Type: BLOOD SPECIMENOrdering Facility: [facility] Address: [address] [place] [address] Performed By: #### 5 8410-2 ####[facility] LABORATORYCLIA [id number] [address] [place] CONSULT PROGon 12-31-2022 CONSULT PROG Normal [facility] CONSULT PROG Normal [facility] Calcium.ionized [Moles/Vol]o n 12-31-2022 Calcium.ionized (BldV) [Mass/Vol] 1.16 mmol/L Normal 1.08-1.30 [facility] Comment on above: Order Comment: Speci men Type: BLOOD SPECIMENOrdering Facility: [facility] Address: [address] [place] [address] Performed By: #### 1 995-0 ####[facility]ORATORYCLIA [id number] [address] Calcium.ionized adjusted to pH 7.4 (Bld) [Moles/Vol] 1.12 mmol/L Normal 1.08-1.30 [facility] Comment on above: Order Comment: Speci men Type: BLOOD SPECIMENOrdering Facility: [facility] Address: [address] [place] [address] Performed By: #### 1 995-0 ####[facility]ORATORYCLIA [id number] [address] [place] Magnesium SerPl-mCncon 12-31 Magnesium [Mass/Vol] 1.5 mg/dL Low 1.7-2.3 [facility] Comment on above: Order Comment: Speci men Type: BLOOD SPECIMENOrdering Facility: [facility] Address: [address] [place] [address] Performed By: #### 1 9123-9, 85968-5, 2777-1 ####[facility]ORATORYCLIA [id number] [address] [place] NURSING PROGon 12-31-2022 NURSING PROG Normal [facility] Phosphate SerPl-mCncon 12-31 Phosphate [Mass/Vol] 3.5 mg/dL Normal 2.7-4.8 [facility] Comment on above: Order Comment: Speci men Type: BLOOD SPECIMENOrdering Facility: [facility] Address: [address] [place] [address] Performed By: #### 1 9123-9, 30481-1, 2777- ####[facility]ORATORYCLIA [id number] [address] [place] THERAPY NTon 12-31-2022 THERAPY NT Normal [facility] XR CHEST 1V FRONTALon 2022 XR CHEST 1V FRONTAL Normal [facility] ALLIED HEALTHon 12-30-2022 ALLIED HEALTH Normal [facility] ARTERIAL BLOOD GASESon 12-30 Base excess Calc (Bld) [Moles/Vol] 8 mmol/L High 0-2 [facility] Comment on above: Order Comment: Speci men Type: ARTERIAL BLOOD SPECIMENOrdering Facility: [facility] Address: [address] [place] [address] Performed By: #### A LLBG ####[facility] LABORATORYCLIA [id number] [address] [place] Body temperature 97.34 [degF] Normal [facility] Comment on above: Order Comment: Speci men Type: ARTERIAL BLOOD SPECIMENOrdering Facility: [facility] Address: [address] [place] [address] Performed By: #### A LLBG ####[facility]ORATORYCLIA [id number] [address] Calcium.ionized (BldV) [Mass/Vol] 1.19 mmol/L Normal 1.08-1.30 [facility] Comment on above: Order Comment: Speci men Type: ARTERIAL BLOOD SPECIMENOrdering Facility: [facility] Address: [address] [place] [address] Performed By: #### A LLBG ####[facility]ORATORYCLIA [id number] [address] Calcium.ionized adjusted to pH 7.4 (BldA) [Moles/Vol] 1.20 mmol/L Normal 1.08-1.30 [facility] Comment on above: Order Comment: Speci men Type: ARTERIAL BLOOD SPECIMENOrdering Facility: [facility] Address: [address] [place] [address] Performed By: #### A LLBG ####[facility]ORATORYCLIA [id number] [address] Carboxyhemoglobin (BldA) [Mass fraction] 1.3 % Normal 0.0-2.0 [facility] Comment on above: Order Comment: Speci men Type: ARTERIAL BLOOD SPECIMENOrdering Facility: [facility] Address: [address] [place] [address] Result Comment: Carb oxyhemoglobin Reference Range for Smokers: 2.0-8.0% Performed By: #### A LLBG ####[facility]ORATORYCLIA [id number] [address] Chloride [Moles/Vol] 100 mmol/L Low 102-109 [facility] Comment on above: Order Comment: Speci men Type: ARTERIAL BLOOD SPECIMENOrdering Facility: [facility] Address: [address] [place] [address] Performed By: #### A LLBG ####[facility]ORATORYCLIA [id number] [address] [place] CO2 (Bld) [Partial pressure] 51 mm Hg High 36-46 [facility] Comment on above: Order Comment: Speci men Type: ARTERIAL BLOOD SPECIMENOrdering Facility: [facility] Address: [address] [place] [address] Performed By: #### A LLBG ####[facility] LABORATORYCLIA [id number] [place] [address] [place] CO2 [Moles/Vol] 30 mmol/L High 22-28 [facility] Comment on above: Order Comment: Speci men Type: ARTERIAL BLOOD SPECIMENOrdering Facility: [facility] Address: [address] [place] [address] Performed By: #### A LLBG ####[facility]ORATORYCLIA [id number] [address] [place] CO2 adjusted to patient's actual temperature (Bld) [Partial pressure] 49 mmHg High 36-46 [facility] Comment on above: Order Comment: Speci men Type: ARTERIAL BLOOD SPECIMENOrdering Facility: [facility] Address: [address] [place] [address] Performed By: #### A LLBG ####[facility]ORATORYCLIA [id number] [place] [address] [place] Glucose [Mass/Vol] 168 mg/dL High 60-105 [facility] Comment on above: Order Comment: Speci men Type: ARTERIAL BLOOD SPECIMENOrdering Facility: [facility] Address: [address] [address] Performed By: #### A LLBG ####[facility]ORATORYCLIA [id number] [place] [address] [place] HCO3 (Bld) [Moles/Vol] 33 mmol/L High 22-26 [facility] Comment on above: Order Comment: Speci men Type: ARTERIAL BLOOD SPECIMENOrdering Facility: [facility] Address: [address] [address] Performed By: #### A LLBG ####[facility]ORATORYCLIA [id number] [address] [place] Hematocrit (Bld) [Volume fraction] 30.2 % Low 36.0-46.0 [facility] Comment on above: Order Comment: Speci men Type: ARTERIAL BLOOD SPECIMENOrdering Facility: [facility] Address: [address] [place] [address] Performed By: #### A LLBG ####[facility]ORATORYCLIA [id number] [address] [place] Hemoglobin (Bld) [Mass/Vol] 9.8 g/dL Low 11.5-15.5 [facility] Comment on above: Order Comment: Speci men Type: ARTERIAL BLOOD SPECIMENOrdering Facility: [facility] Address: [address] [place] [address] Performed By: #### A LLBG ####[facility]ORATORYCLIA [id number] [address] Lactate [Moles/Vol] 0.8 mmol/L Normal 0.5-2.2 [facility] Comment on above: Order Comment: Speci men Type: ARTERIAL BLOOD SPECIMENOrdering Facility: [facility] Address: [address] [place] [address] Performed By: #### A LLBG ####[facility] LABORATORYCLIA [id number] [address] [place] Methemoglobin (Bld) [Mass fraction] 1.0 % Normal 0.0-1.5 [facility] Comment on above: Order Comment: Speci men Type: ARTERIAL BLOOD SPECIMENOrdering Facility: [facility] Address: [address] [place] [address] Performed By: #### A LLBG ####[facility] LABORATORYCLIA [id number] [address] [place] O2 THERAPY Ventilator Normal [facility] Comment on above: Order Comment: Speci men Type: ARTERIAL BLOOD SPECIMENOrdering Facility: [facility] Address: [address] [place] [address] Performed By: #### A LLBG ####[facility] LABORATORYCLIA [id number] [address] Oxygen (Bld) [Partial pressure] 72 mm Hg Low 85-95 [facility] Comment on above: Order Comment: Speci men Type: ARTERIAL BLOOD SPECIMENOrdering Facility: [facility] Address: [address] [place] [address] Performed By: #### A LLBG ####[facility] LABORATORYCLIA [id number] [address] Oxygen adjusted to patient's actual temperature (Bld) [Partial pressure] 69 mmHg Low 85-95 [facility] Comment on above: Order Comment: Speci men Type: ARTERIAL BLOOD SPECIMENOrdering Facility: [facility] Address: [address] [place] [address] Performed By: #### A LLBG ####[facility] LABORATORYCLIA [id number] [address] Oxyhemoglobin (BldA) [Mass fraction] 91 % Low 95-98 [facility] Comment on above: Order Comment: Speci men Type: ARTERIAL BLOOD SPECIMENOrdering Facility: [facility] Address: [address] [place] [address] Performed By: #### A LLBG ####[facility] LABORATORYCLIA [id number] [address] [place] pH (Bld) 7.42 [pH] Normal 7.35-7.45 [facility] Comment on above: Order Comment: Speci men Type: ARTERIAL BLOOD SPECIMENOrdering Facility: [facility] Address: [address] [place] [address] Performed By: #### A LLBG ####[facility] LABORATORYCLIA [id number] [address] pH adjusted to patient's actual temperature (Bld) 7.43 Normal 7.35-7.45 [facility] Comment on above: Order Comment: Speci men Type: ARTERIAL BLOOD SPECIMENOrdering Facility: [facility] Address: [address] [place] [address] Performed By: #### A LLBG ####[facility]ORATORYCLIA [id number] [address] STATES OF [facility] Potassium [Moles/Vol] 3.9 mmol/L Normal 3.5-5.0 [facility] Comment on above: Order Comment: Speci men Type: ARTERIAL BLOOD SPECIMENOrdering Facility: [facility] Address: [address] [place] [address] Performed By: #### A LLBG ####[facility]ATORYCLIA [id number] [address] [place] Sodium [Moles/Vol] 137 mmol/L Normal 136-144 [facility] Comment on above: Order Comment: Speci men Type: ARTERIAL BLOOD SPECIMENOrdering Facility: [facility] Address: [address] [place] [address] Performed By: #### A LLBG ####[facility] LABORATORYCLIA [id number] [place] [address] [place] Basic metabolic 2000 panelon 12-30-2022 Anion gap [Moles/Vol] 11 mmol/L Normal 9-18 [facility] Comment on above: Order Comment: Speci men Type: BLOOD SPECIMENOrdering Facility: [facility] Address: [address] [place] [address] Performed By: #### 2 4321-2, 2776-12, ####[facility]ORATORYCLIA [id number] [place] [address] [place] Calcium [Mass/Vol] 9.4 mg/dL Normal 8.5-10.2 [facility] Comment on above: Order Comment: Speci men Type: BLOOD SPECIMENOrdering Facility: [facility] Address: [address] [place] [address] Performed By: #### 2 4321-2, 27705-31, ####[facility]ORATORYCLIA [id number] [address] OF [facility] Chloride [Moles/Vol] 94 mmol/L Low 97-105 [facility] Comment on above: Order Comment: Speci men Type: BLOOD SPECIMENOrdering Facility: [facility] Address: [address] [place] [address] Performed By: #### 2 4321-2, 2777-1, ####[facility]ORATORYCLIA [id number] [address] OF [facility] CO2 [Moles/Vol] 33 mmol/L High 22-30 [facility] Comment on above: Order Comment: Speci men Type: BLOOD SPECIMENOrdering Facility: [facility] Address: [address] [place] [address] Performed By: #### 2 4321-2, 2777-1, ####[facility]ITALCLIA [id number] [address] Creatinine [Mass/Vol] 1.13 mg/dL High 0.58-0.96 [facility] Comment on above: Order Comment: Speci men Type: BLOOD SPECIMENOrdering Facility: [facility] Address: [address] [place] [address] Performed By: #### 2 4321-2, 277-, ####[facility]PITALCLIA [id number] [address] ESTIMATED GLOMERULAR FILTRATION RATE 61 mL/min/1.73m??? Normal >=60 [facility] Comment on above: Order Comment: Speci men Type: BLOOD SPECIMENOrdering Facility: [facility] Address: [address] [place] [address] Result Comment: Gayle mated Glomerular Filtration Rate [...] GFR. Performed By: #### 2 4321-2, 2777-, ####[facility] LABORATORYCLIA [id number] [place] [address] [place] Glucose [Mass/Vol] 155 mg/dL High 74-99 [facility] Comment on above: Order Comment: Speci men Type: BLOOD SPECIMENOrdering Facility: [facility] Address: [address] [place] [address] Result Comment: The [place] [employer] Association (ADA) provides guidance for [...] Standards of Medical Care in Diabetes 2016, [place] [employer]. Diabetes Care. 2016.39(Suppl 1). Performed By: #### 2 4321-2, 2776-12, ####[facility] LABORATORYCLIA [id number] [place] [address] [place] Potassium [Moles/Vol] 3.4 mmol/L Low 3.7-5.1 [facility] Comment on above: Order Comment: Speci men Type: BLOOD SPECIMENOrdering Facility: [facility] Address: [address] Performed By: #### 2 4321-2, 2777, ####[facility]ORATORYCLIA [id number] [place] [address] [place] Sodium [Moles/Vol] 138 mmol/L Normal 136-144 [facility] Comment on above: Order Comment: Roberto men Type: BLOOD SPECIMENOrdering Facility: [facility] Address: [address] [place] [address] Performed By: #### 2 4321-2, 277-, ####[facility]ORATORYCLIA [id number] [address] [place] Urea nitrogen [Mass/Vol] 22 mg/dL High 7-21 [facility] Comment on above: Order Comment: Speci men Type: BLOOD SPECIMENOrdering Facility: [facility] Address: [address] [place] [address] Performed By: #### 2 4321-2, 2776-12, ####[facility]ORATORYCLIA [id number] [address] [place] CASE MANAGEMon 12-30-2022 CASE MANAGEM Normal [facility] CBC panel Auto (Bld)on 12-30 Erythrocyte distribution width (RBC) [Ratio] 16.1 % High 11.5-15.0 [facility] Comment on above: Order Comment: Speci men Type: BLOOD SPECIMENOrdering Facility: [facility] Address: [address] [place] [address] Performed By: #### 5 8410-2 ####[facility]ORATORYCLIA [id number] [address] [place] Hematocrit (Bld) [Volume fraction] 30.3 % Low 36.0-46.0 [facility] Comment on above: Order Comment: Speci men Type: BLOOD SPECIMENOrdering Facility: [facility] Address: [address] [place] [address] Performed By: #### 5 8410-2 ####[facility]ORATORYCLIA [id number] [address] [place] Hemoglobin (Bld) [Mass/Vol] 9.0 g/dL Low 11.5-15.5 [facility] Comment on above: Order Comment: Speci men Type: BLOOD SPECIMENOrdering Facility: [facility] Address: [address] [place] [address] Performed By: #### 5 8410-2 ####[facility]ORATORYCLIA [id number] [address] MCH (RBC) [Entitic mass] 27.8 pg Normal 26.0-34.0 [facility] Comment on above: Order Comment: Speci men Type: BLOOD SPECIMENOrdering Facility: [facility] Address: [address] [place] [address] Performed By: #### 5 8410-2 ####[facility]ORATORYCLIA [id number] [address] MCHC (RBC) [Mass/Vol] 29.7 g/dL Low 30.5-36.0 [facility] Comment on above: Order Comment: Speci men Type: BLOOD SPECIMENOrdering Facility: [facility] Address: [address] [place] [address] Performed By: #### 5 8410-2 ####[facility]ORATORYCLIA [id number] [address] MCV (RBC) [Entitic vol] 93.5 fL Normal 80.0-100.0 [facility] Comment on above: Order Comment: Speci men Type: BLOOD SPECIMENOrdering Facility: [facility] Address: [address] [place] [address] Performed By: #### 5 8410-2 ####[facility]ORATORYCLIA [id number] [address] Nucleated RBC (Bld) [#/Vol] 10*3/uL Normal <0.01 [facility] Comment on above: Order Comment: Speci men Type: BLOOD SPECIMENOrdering Facility: [facility] Address: [address] [place] [address] Performed By: #### 5 8410-2 ####[facility]ORATORYCLIA [id number] [address] Platelet mean volume (Bld) [Entitic vol] 9.5 fL Normal 9.0-12.7 [facility] Comment on above: Order Comment: Speci men Type: BLOOD SPECIMENOrdering Facility: [facility] Address: [address] [place] [address] Performed By: #### 5 8410-2 ####[facility] LABORATORYCLIA [id number] [address] OF [facility] Platelets (Bld) [#/Vol] 401 10*3/uL High 150-400 [facility] Comment on above: Order Comment: Speci men Type: BLOOD SPECIMENOrdering Facility: [facility] Address: [address] [place] [address] Performed By: #### 5 8410-2 ####[facility]ORATORYCLIA [id number] [address] OF [facility] RBC (Bld) [#/Vol] 3.24 10*6/uL Low 3.90-5.20 [facility] Comment on above: Order Comment: Speci men Type: BLOOD SPECIMENOrdering Facility: [facility] Address: [address] [place] [address] Performed By: #### 5 8410-2 ####[facility]ORATORYCLIA [id number] [address] [place] WBC (Bld) [#/Vol] 14.20 10*3/uL High 3.70-11.00 [facility] Comment on above: Order Comment: Speci men Type: BLOOD SPECIMENOrdering Facility: [facility] Address: [address] [place] [address] Performed By: #### 5 8410-2 ####[facility]ORATORYCLIA [id number] [address] OF [facility] CONSULTon 12-30-2022 CONSULT Normal [facility] CONSULT PROGon 12-30-2022 CONSULT PROG Normal [facility] Calcium.ionized [Moles/Vol]o n 12-30-2022 Calcium.ionized (BldV) [Mass/Vol] 1.19 mmol/L Normal 1.08-1.30 [facility] Comment on above: Order Comment: Speci men Type: BLOOD SPECIMENOrdering Facility: [facility] Address: [address] [place] [address] Performed By: #### 1 995-0 ####[facility]ORATORYCLIA [id number] [address] Calcium.ionized adjusted to pH 7.4 (Bld) [Moles/Vol] 1.23 mmol/L Normal 1.08-1.30 [facility] Comment on above: Order Comment: Speci men Type: BLOOD SPECIMENOrdering Facility: [facility] Address: [address] [place] [address] Performed By: #### 1 995-0 ####[facility] LABORATORYCLIA [id number] [address] Laboratory - Microbiology an d Antimicrobial susceptibilityOrdered By: Dr. Kaiser on 12-30-2022 Bacteria identified Cx Nom (Bld) No growth in 5 days. [facility] Magnesium [facility] Magnesium [Mass/Vol] 1.7 mg/dL Normal 1.7-2.3 [facility] Comment on above: Order Comment: Speci men Type: BLOOD SPECIMENOrdering Facility: [facility] Address: [address] [place] [address] Performed By: #### 2 4321-2, 2776-12, ####[facility]ORATORYCLIA [id number] [address] [place] NUTRITIONon 12-30-2022 NUTRITION Normal [facility] No Panel InformationOrdered By: Dr. Kaiser on 12-30-2022 No growth in 5 days. [facility] Phosphate SerPl-mCncon 12-30 Phosphate [Mass/Vol] 4.2 mg/dL Normal 2.7-4.8 [facility] Comment on above: Order Comment: Speci men Type: BLOOD SPECIMENOrdering Facility: [facility] Address: [address] [place] [address] Performed By: #### 2 4321-2, 2777-, ####[facility]ORATORYCLIA [id number] [place] [address] [place] XR CHEST 1V FRONTALon 2022 XR CHEST 1V FRONTAL Normal [facility] ALLIED HEALTHon 12-29-2022 ALLIED HEALTH Normal [facility] Bacteria Spec Resp Culton Bacteria identified Respiratory culture Nom (Unsp spec) CULTURE, RESPIRATORY: No growth 2 days GRAM STAIN: No organisms seen Many Polymorphonuclear leukocytes Rare Epithelial cells Normal [facility] Comment on above: Performed By: #### 3 2355-0 ####[facility] LABORATORYCLIA [id number] [place] [id number] [place] Basic metabolic 2000 panelon 12-29-2022 Anion gap [Moles/Vol] 10 mmol/L Normal 9-18 [facility] Comment on above: Order Comment: Speci men Type: BLOOD SPECIMENOrdering Facility: [facility] Address: [address] [place] [address] Performed By: #### 2 4321-2, , 2776-12 ####[facility]PITALCLIA [id number] [place] [address] [place] Calcium [Mass/Vol] 9.5 mg/dL Normal 8.5-10.2 [facility] Comment on above: Order Comment: Speci men Type: BLOOD SPECIMENOrdering Facility: [facility] Address: [address] [place] [address] Performed By: #### 2 4321-2, , 2776-12 ####[facility]ORATORYCLIA [id number] [place] [address] [place] Chloride [Moles/Vol] 94 mmol/L Low 97-105 [facility] Comment on above: Order Comment: Speci men Type: BLOOD SPECIMENOrdering Facility: [facility] Address: [address] [place] [address] Performed By: #### 2 4321-2, , 2776-12 ####[facility]ORATORYCLIA [id number] [place] [address] [place] CO2 [Moles/Vol] 33 mmol/L High 22-30 [facility] Comment on above: Order Comment: Speci men Type: BLOOD SPECIMENOrdering Facility: [facility] Address: [address] [place] [address] Performed By: #### 2 4321-2, , 2776-12 ####[facility]ORATORYCLIA [id number] [place] [address] [place] Creatinine [Mass/Vol] 1.17 mg/dL High 0.58-0.96 [facility] Comment on above: Order Comment: Speci men Type: BLOOD SPECIMENOrdering Facility: [facility] Address: [address] [place] [address] Performed By: #### 2 4321-2, , 2776-12 ####[facility]ITALCLIA [id number] [address] OF [facility] ESTIMATED GLOMERULAR FILTRATION RATE 59 mL/min/1.73m??? Low >=60 [facility] Comment on above: Order Comment: Speci men Type: BLOOD SPECIMENOrdering Facility: [facility] Address: [address] [place] [address] Result Comment: Gayle mated Glomerular Filtration Rate [...] Performed By: #### 2 4321-2, , 2776-12 ####[facility]ORATORYCLIA [id number] [place] [address] [place] Glucose [Mass/Vol] 267 mg/dL High 74-99 [facility] Comment on above: Order Comment: Speci men Type: BLOOD SPECIMENOrdering Facility: [facility] Address: [address] [place] [address] Result Comment: The [place] Diabetes Association (ADA) provides guidance for [...] Standards of Medical Care in Diabetes 2016, [place] [employer]. Diabetes Care. 2016.39(Suppl 1). Performed By: #### 2 4321-2, , 2776-12 ####[facility]ORATORYCLIA [id number] [place] [address] [place] Potassium [Moles/Vol] 4.2 mmol/L Normal 3.7-5.1 [facility] Comment on above: Order Comment: Roberto talbot Type: BLOOD SPECIMENOrdering Facility: [facility] Address: [address] [place] [address] Performed By: #### 2 4321-2, , 2776-12 ####[facility]ORATORYCLIA [id number] [place] [address] [place] Sodium [Moles/Vol] 137 mmol/L Normal 136-144 [facility] Comment on above: Order Comment: Roberto talbot Type: BLOOD SPECIMENOrdering Facility: [facility] Address: [address] [place] [address] Performed By: #### 2 4321-2, , 2776-12 ####[facility]ORATORYCLIA [id number] [place] [address] [place] Urea nitrogen [Mass/Vol] 19 mg/dL Normal 7-21 [facility] Comment on above: Order Comment: Roberto talbot Type: BLOOD SPECIMENOrdering Facility: [facility] Address: [address] [place] [address] Performed By: #### 2 4321-2, , 2776-12 ####[facility]ORATORYCLIA [id number] [address] STATES OF [facility] CBC panel Auto (Bld)on 12-29 Erythrocyte distribution width (RBC) [Ratio] 16.2 % High 11.5-15.0 [facility] Comment on above: Order Comment: Speci men Type: BLOOD SPECIMENOrdering Facility: [facility] Address: [address] [place] [address] Performed By: #### 5 8410-2 ####[facility]ORATORYCLIA [id number] [address] Hematocrit (Bld) [Volume fraction] 29.8 % Low 36.0-46.0 [facility] Comment on above: Order Comment: Speci men Type: BLOOD SPECIMENOrdering Facility: [facility] Address: [address] [place] [address] Performed By: #### 5 8410-2 ####[facility]ATORYCLIA [id number] [address] Hemoglobin (Bld) [Mass/Vol] 8.9 g/dL Low 11.5-15.5 [facility] Comment on above: Order Comment: Speci men Type: BLOOD SPECIMENOrdering Facility: [facility] Address: [address] [place] [address] Performed By: #### 5 8410-2 ####[facility]ORATORYCLIA [id number] [address] STATES [facility] MCH (RBC) [Entitic mass] 28.0 pg Normal 26.0-34.0 [facility] Comment on above: Order Comment: Speci men Type: BLOOD SPECIMENOrdering Facility: [facility] Address: [address] [place] [address] Performed By: #### 5 8410-2 ####[facility]ORATORYCLIA [id number] [address] [place] MCHC (RBC) [Mass/Vol] 29.9 g/dL Low 30.5-36.0 [facility] Comment on above: Order Comment: Speci men Type: BLOOD SPECIMENOrdering Facility: [facility] Address: [address] [place] [place] [address] Performed By: #### 5 8410-2 ####[facility]ORATORYCLIA [id number] [address] [place] MCV (RBC) [Entitic vol] 93.7 fL Normal 80.0-100.0 [facility] Comment on above: Order Comment: Speci men Type: BLOOD SPECIMENOrdering Facility: [facility] Address: [address] [place] [address] Performed By: #### 5 8410-2 ####[facility]ORATORYCLIA [id number] [address] [place] Nucleated RBC (Bld) [#/Vol] 0.02 10*3/uL High <0.01 [facility] Comment on above: Order Comment: Speci men Type: BLOOD SPECIMENOrdering Facility: [facility] Address: [address] [place] [address] Performed By: #### 5 8410-2 ####[facility]ORATORYCLIA [id number] [address] STATES OF [facility] Platelet mean volume (Bld) [Entitic vol] 9.5 fL Normal 9.0-12.7 [facility] Comment on above: Order Comment: Speci men Type: BLOOD SPECIMENOrdering Facility: [facility] Address: [address] [place] [address] Performed By: #### 5 8410-2 ####[facility]ORATORYCLIA [id number] [address] [place] Platelets (Bld) [#/Vol] 394 10*3/uL Normal 150-400 [facility] Comment on above: Order Comment: Speci men Type: BLOOD SPECIMENOrdering Facility: [facility] Address: [address] [address] Performed By: #### 5 8410-2 ####[facility]ORATORYCLIA [id number] [address] [place] RBC (Bld) [#/Vol] 3.18 10*6/uL Low 3.90-5.20 [facility] Comment on above: Order Comment: Speci men Type: BLOOD SPECIMENOrdering Facility: [facility] Address: [address] [place] [address] Performed By: #### 5 8410-2 ####[facility]ORATORYCLIA [id number] [address] OF [facility] WBC (Bld) [#/Vol] 16.20 10*3/uL High 3.70-11.00 [facility] Comment on above: Order Comment: Speci men Type: BLOOD SPECIMENOrdering Facility: [facility] Address: [address] [place] [address] Performed By: #### 5 8410-2 ####[facility]ORATORYCLIA [id number] [address] CONSULT PROGon 12-29-2022 CONSULT PROG Normal [facility] CONSULT PROG Normal [facility] Calcium.ionized [Moles/Vol]o n 12-29-2022 Calcium.ionized (BldV) [Mass/Vol] 1.16 mmol/L Normal 1.08-1.30 [facility] Comment on above: Order Comment: Speci men Type: BLOOD SPECIMENOrdering Facility: [facility] Address: [address] [place] [address] Performed By: #### 1 995-0 ####[facility]ORATORYCLIA [id number] [address] Calcium.ionized adjusted to pH 7.4 (Bld) [Moles/Vol] 1.20 mmol/L Normal 1.08-1.30 [facility] Comment on above: Order Comment: Speci men Type: BLOOD SPECIMENOrdering Facility: [facility] Address: [address] [place] [address] Performed By: #### 1 995-0 ####[facility] LABORATORYCLIA [id number] [place] [address] [place] Magnesium SerPl-mCncon 12-29 Magnesium [Mass/Vol] 1.6 mg/dL Low 1.7-2.3 [facility] Comment on above: Order Comment: Speci men Type: BLOOD SPECIMENOrdering Facility: [facility] Address: [address] [place] [address] Performed By: #### 2 4321-2, , 2776-12 ####[facility]ORATORYCLIA [id number] [place] [address] [place] Phosphate SerPl-mCncon 12-29 Phosphate [Mass/Vol] 4.6 mg/dL Normal 2.7-4.8 [facility] Comment on above: Order Comment: Speci men Type: BLOOD SPECIMENOrdering Facility: [facility] Address: [address] [place] [address] Performed By: #### 2 4321-2, , 2776-12 ####[facility]ORATORYCLIA [id number] [place] [address] [place] XR CHEST 1V FRONTALon 2022 XR CHEST 1V FRONTAL Normal [facility] Basic metabolic 2000 panelon 12-28-2022 Anion gap [Moles/Vol] 11 mmol/L Normal 9-18 [facility] Comment on above: Order Comment: Speci men Type: BLOOD SPECIMENOrdering Facility: [facility] Address: [address] [place] [address] Performed By: #### 2 4321-2, 2776-12 ####[facility]ORATORYCLIA [id number] [place] [address] [place] Calcium [Mass/Vol] 9.0 mg/dL Normal 8.5-10.2 [facility] Comment on above: Order Comment: Speci men Type: BLOOD SPECIMENOrdering Facility: [facility] Address: [address] [place] [address] Performed By: #### 2 4320-2, - ####[facility] LABORATORYCLIA [id number] [address] Chloride [Moles/Vol] 94 mmol/L Low 97-105 [facility] Comment on above: Order Comment: Speci men Type: BLOOD SPECIMENOrdering Facility: [facility] Address: [address] [place] [address] Performed By: #### 2 4321-2, 277- ####[facility] LABORATORYCLIA [id number] [address] CO2 [Moles/Vol] 30 mmol/L Normal 22-30 [facility] Comment on above: Order Comment: Speci men Type: BLOOD SPECIMENOrdering Facility: [facility] Address: [address] [place] [address] Performed By: #### 2 4321-2, 2776-12 ####[facility] LABORATORYCLIA [id number] [address] Creatinine [Mass/Vol] 1.10 mg/dL High 0.58-0.96 [facility] Comment on above: Order Comment: Speci men Type: BLOOD SPECIMENOrdering Facility: [facility] Address: [address] [place] [address] Performed By: #### 2 432-2, 2776-12 ####[facility] LABORATORYCLIA [id number] [address] ESTIMATED GLOMERULAR FILTRATION RATE 63 mL/min/1.73m??? Normal >=60 [facility] Comment on above: Order Comment: Speci men Type: BLOOD SPECIMENOrdering Facility: [facility] Address: [address] [place] [address] Result Comment: Gayle mated Glomerular Filtration Rate [...] GFR. Performed By: #### 2 4321-2, 2777- ####[facility] LABORATORYCLIA [id number] [place] [address] [place] Glucose [Mass/Vol] 247 mg/dL High 74-99 [facility] Comment on above: Order Comment: Speci men Type: BLOOD SPECIMENOrdering Facility: [facility] Address: [address] [place] [address] Result Comment: The [place] [employer] Association (ADA) provides guidance for [...] Standards of Medical Care in Diabetes 2016, [place] [employer]. Diabetes Care. 2016.39(Suppl 1). Performed By: #### 2 432-2, 2776-12 ####[facility] LABORATORYCLIA [id number] [place] [address] [place] Potassium [Moles/Vol] 4.2 mmol/L Normal 3.7-5.1 [facility] Comment on above: Order Comment: Speci men Type: BLOOD SPECIMENOrdering Facility: [facility] Address: [address] [address] Performed By: #### 2 432-2, 27705-31 ####[facility] LABORATORYCLIA [id number] [place] [address] [place] Sodium [Moles/Vol] 135 mmol/L Low 136-144 [facility] Comment on above: Order Comment: Migdaliai men Type: BLOOD SPECIMENOrdering Facility: [facility] Address: [address] [place] [address] Performed By: #### 2 432-2, 277-1 ####[facility] LABORATORYCLIA [id number] [address] STATES OF [facility] Urea nitrogen [Mass/Vol] 11 mg/dL Normal 7-21 [facility] Comment on above: Order Comment: Speci men Type: BLOOD SPECIMENOrdering Facility: [facility] Address: [address] [place] [address] Performed By: #### 2 4321-2, 2777-1 ####[facility] LABORATORYCLIA [id number] [address] OF [facility] CBC panel Auto (Bld)on 12-28 Erythrocyte distribution width (RBC) [Ratio] 16.3 % High 11.5-15.0 [facility] Comment on above: Order Comment: Speci men Type: BLOOD SPECIMENOrdering Facility: [facility] Address: [address] [place] [address] Performed By: #### 5 8410-2 ####[facility] LABORATORYCLIA [id number] [address] STATES OF [facility] Hematocrit (Bld) [Volume fraction] 29.8 % Low 36.0-46.0 [facility] Comment on above: Order Comment: Speci men Type: BLOOD SPECIMENOrdering Facility: [facility] Address: [address] [place] [address] Performed By: #### 5 8410-2 ####[facility] LABORATORYCLIA [id number] [address] STATES OF [facility] Hemoglobin (Bld) [Mass/Vol] 8.9 g/dL Low 11.5-15.5 [facility] Comment on above: Order Comment: Speci men Type: BLOOD SPECIMENOrdering Facility: [facility] Address: [address] [place] [address] Performed By: #### 5 8410-2 ####[facility]ORATORYCLIA [id number] [address] [place] MCH (RBC) [Entitic mass] 28.2 pg Normal 26.0-34.0 [facility] Comment on above: Order Comment: Speci men Type: BLOOD SPECIMENOrdering Facility: [facility] Address: [address] [place] [address] Performed By: #### 5 8410-2 ####[facility] LABORATORYCLIA [id number] [address] MCHC (RBC) [Mass/Vol] 29.9 g/dL Low 30.5-36.0 [facility] Comment on above: Order Comment: Speci men Type: BLOOD SPECIMENOrdering Facility: [facility] Address: [address] [place] [address] Performed By: #### 5 8410-2 ####[facility] LABORATORYCLIA [id number] [address] [place] MCV (RBC) [Entitic vol] 94.3 fL Normal 80.0-100.0 [facility] Comment on above: Order Comment: Speci men Type: BLOOD SPECIMENOrdering Facility: [facility] Address: [address] [place] [address] Performed By: #### 5 8410-2 ####[facility] LABORATORYCLIA [id number] [address] Nucleated RBC (Bld) [#/Vol] 0.02 10*3/uL High <0.01 [facility] Comment on above: Order Comment: Speci men Type: BLOOD SPECIMENOrdering Facility: [facility] Address: [address] [place] [address] Performed By: #### 5 8410-2 ####[facility] LABORATORYCLIA [id number] [address] STATES [facility] Platelet mean volume (Bld) [Entitic vol] 9.4 fL Normal 9.0-12.7 [facility] Comment on above: Order Comment: Speci men Type: BLOOD SPECIMENOrdering Facility: [facility] Address: [address] [place] [address] Performed By: #### 5 8410-2 ####[facility]ITALCLIA [id number] [address] [place] Platelets (Bld) [#/Vol] 359 10*3/uL Normal 150-400 [facility] Comment on above: Order Comment: Speci men Type: BLOOD SPECIMENOrdering Facility: [facility] Address: [address] [place] [address] Performed By: #### 5 8410-2 ####[facility]ORATORYCLIA [id number] [address] [place] RBC (Bld) [#/Vol] 3.16 10*6/uL Low 3.90-5.20 [facility] Comment on above: Order Comment: Speci men Type: BLOOD SPECIMENOrdering Facility: [facility] Address: [address] [place] [address] Performed By: #### 5 8410-2 ####[facility]ORATORYCLIA [id number] [address] STATES OF [facility] WBC (Bld) [#/Vol] 16.86 10*3/uL High 3.70-11.00 [facility] Comment on above: Order Comment: Speci men Type: BLOOD SPECIMENOrdering Facility: [facility] Address: [address] [place] [address] Performed By: #### 5 8410-2 ####[facility] LABORATORYCLIA [id number] [address] OF [place] CONSULT PROGon 12-28-2022 CONSULT PROG Normal [facility] CONSULT PROG Normal [facility] Calcium.ionized [Moles/Vol]o n 12-28-2022 Calcium.ionized (BldV) [Mass/Vol] 0.99 mmol/L Low 1.08-1.30 [facility] Comment on above: Order Comment: Speci men Type: BLOOD SPECIMENOrdering Facility: [facility] Address: [address] [place] [address] Performed By: #### 1 995-0 ####[facility]ORATORYCLIA [id number] [address] Calcium.ionized adjusted to pH 7.4 (Bld) [Moles/Vol] 1.07 mmol/L Low 1.08-1.30 [facility] Comment on above: Order Comment: Speci men Type: BLOOD SPECIMENOrdering Facility: [facility] Address: [address] [place] [address] Performed By: #### 1 995-0 ####[facility]ORATORYCLIA [id number] [address] OF [place] Magnesium [facility]28 Magnesium [Mass/Vol] 1.5 mg/dL Low 1.7-2.3 [facility] Comment on above: Order Comment: Speci men Type: BLOOD SPECIMENOrdering Facility: [facility] Address: [address] [place] [address] Performed By: #### 1 9123-9 ####[facility]ORATORYCLIA [id number] [address] OF [place] NURSING PROGon 12-28-2022 NURSING PROG Normal [facility] Phosphate SerPl-mCncon 12-28 Phosphate [Mass/Vol] 3.7 mg/dL Normal 2.7-4.8 [facility] Comment on above: Order Comment: Speci men Type: BLOOD SPECIMENOrdering Facility: [facility] Address: [address] [place] [address] Performed By: #### 2 4321-2, 2777-1 ####[facility] LABORATORYCLIA [id number] [address] OF [place] Prealbumin [Mass/Vol]on 12-02 Prealbumin Nephelometry [Mass/Vol] 10 mg/dL Low [facility] Comment on above: Order Comment: Speci men Type: BLOOD SPECIMENOrdering Facility: [facility] Address: [address] [place] [address] Performed By: #### 1 4338-8 ####[facility]ORATORYCLIA [id number] [address] [place] Vancomycin random [Mass/Vol] on 12-28-2022 Vancomycin [Mass/Vol] 10.3 ug/mL Normal 10.0-20.0 [facility] Comment on above: Order Comment: Speci men Type: BLOOD SPECIMENOrdering Facility: [facility] Address: [address] [place] [address] Result Comment: Refe rence ranges and high/low indicator flags are provided as general guidelines only. The treating physician must determine appropriate target levels/dosing based on the specific clinical situation. Performed By: #### 4 091-5 ####[facility] LABORATORYCLIA [id number] [address] [place] XR CHEST 1V FRONTALon 2022 XR CHEST 1V FRONTAL Normal [facility] ALLIED HEALTHon 12-27-2022 ALLIED HEALTH Normal [facility] ALLIED HEALTH Normal [facility] ANES POSTPROC EVALon 023 ANES POSTPROC EVAL Normal [facility] ARTERIAL BLOOD GASESon 12-27 Base excess Calc (Bld) [Moles/Vol] 3 mmol/L High 0-2 [facility] Comment on above: Order Comment: Speci men Type: ARTERIAL BLOOD SPECIMENOrdering Facility: [facility] Address: [address] [place] [address] Performed By: #### A LLBG ####[facility]ORATORYCLIA [id number] [address] [place] Body temperature 100.76 [degF] Normal [facility] Comment on above: Order Comment: Speci men Type: ARTERIAL BLOOD SPECIMENOrdering Facility: [facility] Address: [address] [address] Performed By: #### A LLBG ####[facility]ORATORYCLIA [id number] [address] [place] Calcium.ionized (BldV) [Mass/Vol] 1.16 mmol/L Normal 1.08-1.30 [facility] Comment on above: Order Comment: Speci men Type: ARTERIAL BLOOD SPECIMENOrdering Facility: [facility] Address: [address] [place] [address] Performed By: #### A LLBG ####[facility]ORATORYCLIA [id number] [address] Calcium.ionized adjusted to pH 7.4 (BldA) [Moles/Vol] 1.16 mmol/L Normal 1.08-1.30 [facility] Comment on above: Order Comment: Speci men Type: ARTERIAL BLOOD SPECIMENOrdering Facility: [facility] Address: [address] [place] [address] Performed By: #### A LLBG ####[facility] LABORATORYCLIA [id number] [address] OF [facility] Carboxyhemoglobin (BldA) [Mass fraction] 1.5 % Normal 0.0-2.0 [facility] Comment on above: Order Comment: Speci men Type: ARTERIAL BLOOD SPECIMENOrdering Facility: [facility] Address: [address] [place] [address] Result Comment: Carb oxyhemoglobin Reference Range for Smokers: 2.0-8.0% Performed By: #### A LLBG ####[facility]ORATORYCLIA [id number] [address] [place] Chloride [Moles/Vol] 104 mmol/L Normal 102-109 [facility] Comment on above: Order Comment: Speci men Type: ARTERIAL BLOOD SPECIMENOrdering Facility: [facility] Address: [address] [place] [address] Performed By: #### A LLBG ####[facility]ORATORYCLIA [id number] [address] [place] CO2 (Bld) [Partial pressure] 48 mm Hg High 36-46 [facility] Comment on above: Order Comment: Speci men Type: ARTERIAL BLOOD SPECIMENOrdering Facility: [facility] Address: [address] [place] [address] Performed By: #### A LLBG ####[facility]ORATORYCLIA [id number] [address] [place] CO2 [Moles/Vol] 27 mmol/L Normal 22-28 [facility] Comment on above: Order Comment: Speci men Type: ARTERIAL BLOOD SPECIMENOrdering Facility: [facility] Address: [address] [address] Performed By: #### A LLBG ####[facility]ORATORYCLIA [id number] [address] [place] CO2 adjusted to patient's actual temperature (Bld) [Partial pressure] 51 mmHg High 36-46 [facility] Comment on above: Order Comment: Speci men Type: ARTERIAL BLOOD SPECIMENOrdering Facility: [facility] Address: [address] [place] [address] Performed By: #### A LLBG ####[facility]ORATORYCLIA [id number] [address] [place] Glucose [Mass/Vol] 267 mg/dL High 60-105 [facility] Comment on above: Order Comment: Speci men Type: ARTERIAL BLOOD SPECIMENOrdering Facility: [facility] Address: [address] [address] Performed By: #### A LLBG ####[facility]ORATORYCLIA [id number] [address] [place] HCO3 (Bld) [Moles/Vol] 28 mmol/L High 22-26 [facility] Comment on above: Order Comment: Speci men Type: ARTERIAL BLOOD SPECIMENOrdering Facility: [facility] Address: [address] [address] Performed By: #### A LLBG ####[facility] LABORATORYCLIA [id number] [address] [place] Hematocrit (Bld) [Volume fraction] 29.4 % Low 36.0-46.0 [facility] Comment on above: Order Comment: Speci men Type: ARTERIAL BLOOD SPECIMENOrdering Facility: [facility] Address: [address] [address] Performed By: #### A LLBG ####[facility]ORATORYCLIA [id number] [address] OF [facility] Hemoglobin (Bld) [Mass/Vol] 9.5 g/dL Low 11.5-15.5 [facility] Comment on above: Order Comment: Speci men Type: ARTERIAL BLOOD SPECIMENOrdering Facility: [facility] Address: [address] [place] [address] Performed By: #### A LLBG ####[facility]ORATORYCLIA [id number] [address] OF [facility] Lactate [Moles/Vol] 1.2 mmol/L Normal 0.5-2.2 [facility] Comment on above: Order Comment: Speci men Type: ARTERIAL BLOOD SPECIMENOrdering Facility: [facility] Address: [address] [place] [address] Performed By: #### A LLBG ####[facility]ORATORYCLIA [id number] [address] Methemoglobin (Bld) [Mass fraction] 1.2 % Normal 0.0-1.5 [facility] Comment on above: Order Comment: Speci men Type: ARTERIAL BLOOD SPECIMENOrdering Facility: [facility] Address: [address] [place] [address] Performed By: #### A LLBG ####[facility]ORATORYCLIA [id number] [address] O2 THERAPY Ventilator Normal [facility] Comment on above: Order Comment: Speci men Type: ARTERIAL BLOOD SPECIMENOrdering Facility: [facility] Address: [address] [place] [address] Performed By: #### A LLBG ####[facility]ORATORYCLIA [id number] [address] Oxygen (Bld) [Partial pressure] 93 mm Hg Normal 85-95 [facility] Comment on above: Order Comment: Speci men Type: ARTERIAL BLOOD SPECIMENOrdering Facility: [facility] Address: [address] [address] Performed By: #### A LLBG ####[facility]ORATORYCLIA [id number] [address] Oxygen adjusted to patient's actual temperature (Bld) [Partial pressure] 100 mmHg High 85-95 [facility] Comment on above: Order Comment: Speci men Type: ARTERIAL BLOOD SPECIMENOrdering Facility: [facility] Address: [address] [place] [address] Performed By: #### A LLBG ####[facility]ORATORYCLIA [id number] [address] Oxyhemoglobin (BldA) [Mass fraction] 94 % Low 95-98 [facility] Comment on above: Order Comment: Speci men Type: ARTERIAL BLOOD SPECIMENOrdering Facility: [facility] Address: [address] [place] [address] Performed By: #### A LLBG ####[facility]ORATORYCLIA [id number] [address] [place] pH (Bld) 7.39 [pH] Normal 7.35-7.45 [facility] Comment on above: Order Comment: Speci men Type: ARTERIAL BLOOD SPECIMENOrdering Facility: [facility] Address: [address] [place] [address] Performed By: #### A LLBG ####[facility]ORATORYCLIA [id number] [address] pH adjusted to patient's actual temperature (Bld) 7.37 Normal 7.35-7.45 [facility] Comment on above: Order Comment: Speci men Type: ARTERIAL BLOOD SPECIMENOrdering Facility: [facility] Address: [address] [place] [address] Performed By: #### A LLBG ####[facility]ORATORYCLIA [id number] [place] [address] [place] Potassium [Moles/Vol] 4.5 mmol/L Normal 3.5-5.0 [facility] Comment on above: Order Comment: Speci men Type: ARTERIAL BLOOD SPECIMENOrdering Facility: [facility] Address: [address] [address] Performed By: #### A LLBG ####[facility]ORATORYCLIA [id number] [place] [address] [place] Sodium [Moles/Vol] 136 mmol/L Normal 136-144 [facility] Comment on above: Order Comment: Speci men Type: ARTERIAL BLOOD SPECIMENOrdering Facility: [facility] Address: [address] [address] Performed By: #### A LLBG ####[facility]ORATORYCLIA [id number] [place] [address] [place] Basic metabolic 2000 panelon 12-27-2022 Anion gap [Moles/Vol] 10 mmol/L Normal 9-18 [facility] Comment on above: Order Comment: Speci men Type: BLOOD SPECIMENOrdering Facility: [facility] Address: [address] [place] [address] Performed By: #### 2 4321-01, 1988-03, 2776-12, ####[facility]ORATORYCLIA [id number] [place] [address] [place] Calcium [Mass/Vol] 8.9 mg/dL Normal 8.5-10.2 [facility] Comment on above: Order Comment: Speci men Type: BLOOD SPECIMENOrdering Facility: [facility] Address: [address] [address] Performed By: #### 2 4321-01, 1988-03, 2776-12, ####[facility]ORATORYCLIA [id number] [place] [address] [place] Chloride [Moles/Vol] 98 mmol/L Normal 97-105 [facility] Comment on above: Order Comment: Speci men Type: BLOOD SPECIMENOrdering Facility: [facility] Address: [address] [place] [address] Performed By: #### 2 4321-01, 1988-03, ####[facility]PITALCLIA [id number] [place] [address] [place] CO2 [Moles/Vol] 28 mmol/L Normal 22-30 [facility] Comment on above: Order Comment: Speci men Type: BLOOD SPECIMENOrdering Facility: [facility] Address: [address] [place] [address] Performed By: #### 2 4321-01, 1988-03, ####[facility] HOSPITALIA [id number] [place] [address] [place] Creatinine [Mass/Vol] 0.91 mg/dL Normal 0.58-0.96 [facility] Comment on above: Order Comment: Speci men Type: BLOOD SPECIMENOrdering Facility: [facility] Address: [address] [place] [address] Performed By: #### 2 4321-01, 1988-03, ####[facility] HOSPITALIA [id number] [address] [place] ESTIMATED GLOMERULAR FILTRATION RATE 79 mL/min/1.73m??? Normal >=60 [facility] Comment on above: Order Comment: Speci men Type: BLOOD SPECIMENOrdering Facility: [facility] Address: [address] [place] [address] Result Comment: Gayle mated Glomerular Filtration Rate [...] Performed By: #### 2 4321-01, 1988-03, 2776-12, ####[facility] HOS[facility]ITALIA [id number] [place] [address] [place] Glucose [Mass/Vol] 190 mg/dL High 74-99 [facility] Comment on above: Order Comment: Roberto talbot Type: BLOOD SPECIMENOrdering Facility: [facility] Address: [address] [place] [address] Result Comment: The [place] [employer] (ADA) provides guidance for [...] Standards of Medical Care in Diabetes 2016, [place] [employer]. Diabetes Care. 2016.39(Suppl 1). Performed By: #### 2 4321-01, 1988-03, 2776-12, ####[facility]ORATORYCLIA [id number] [place] [address] [place] Potassium [Moles/Vol] 4.5 mmol/L Normal 3.7-5.1 [facility] Comment on above: Order Comment: Roberto talbot Type: BLOOD SPECIMENOrdering Facility: [facility] Address: [address] [address] Performed By: #### 2 4321-01, 1988-03, 2776-12, ####[facility]ORATORYCLIA [id number] [place] [address] [place] Sodium [Moles/Vol] 136 mmol/L Normal 136-144 [facility] Comment on above: Order Comment: Roberto talbot Type: BLOOD SPECIMENOrdering Facility: [facility] Address: [address] [place] [address] Performed By: #### 2 4321-01, 1988-03, 2776-12, ####[facility]ORATORYCLIA [id number] [place] [address] [place] Urea nitrogen [Mass/Vol] 12 mg/dL Normal 7-21 [facility] Comment on above: Order Comment: Speci men Type: BLOOD SPECIMENOrdering Facility: [facility] Address: [address] [place] [address] Performed By: #### 2 4321-2, 1987-5, 2777-1, 01448-4 ####[facility] LABORATORYCLIA [id number] [address] OF [facility] CBC panel Auto (Bld)on 12-27 Erythrocyte distribution width (RBC) [Ratio] 16.2 % High 11.5-15.0 [facility] Comment on above: Order Comment: Speci men Type: BLOOD SPECIMENOrdering Facility: [facility] Address: [address] [place] [address] Performed By: #### 5 8410-2 ####[facility] LABORATORYCLIA [id number] [address] STATES OF [facility] Hematocrit (Bld) [Volume fraction] 28.4 % Low 36.0-46.0 [facility] Comment on above: Order Comment: Speci men Type: BLOOD SPECIMENOrdering Facility: [facility] Address: [address] [place] [address] Performed By: #### 5 8410-2 ####[facility] LABORATORYCLIA [id number] [address] STATES OF [facility] Hemoglobin (Bld) [Mass/Vol] 8.5 g/dL Low 11.5-15.5 [facility] Comment on above: Order Comment: Speci men Type: BLOOD SPECIMENOrdering Facility: [facility] Address: [address] [place] [address] Performed By: #### 5 8410-2 ####[facility]ORATORYCLIA [id number] [address] STATES [facility] MCH (RBC) [Entitic mass] 28.1 pg Normal 26.0-34.0 [facility] Comment on above: Order Comment: Speci men Type: BLOOD SPECIMENOrdering Facility: [facility] Address: [address] [place] [address] Performed By: #### 5 8410-2 ####[facility] LABORATORYCLIA [id number] [facility] (RBC) [Mass/Vol] 29.9 g/dL Low 30.5-36.0 [facility] Comment on above: Order Comment: Speci men Type: BLOOD SPECIMENOrdering Facility: [facility] Address: [address] [place] [address] Performed By: #### 5 8410-2 ####[facility] LABORATORYCLIA [id number] [address] [place] MCV (RBC) [Entitic vol] 93.7 fL Normal 80.0-100.0 [facility] Comment on above: Order Comment: Speci men Type: BLOOD SPECIMENOrdering Facility: [facility] Address: [address] [place] [address] Performed By: #### 5 8410-2 ####[facility] LABORATORYCLIA [id number] [address] STATES OF [facility] Nucleated RBC (Bld) [#/Vol] 10*3/uL Normal <0.01 [facility] Comment on above: Order Comment: Speci men Type: BLOOD SPECIMENOrdering Facility: [facility] Address: [address] [place] [address] Performed By: #### 5 8410-2 ####[facility] LABORATORYCLIA [id number] [address] STATES [place] Platelet mean volume (Bld) [Entitic vol] 9.4 fL Normal 9.0-12.7 [facility] Comment on above: Order Comment: Speci men Type: BLOOD SPECIMENOrdering Facility: [facility] Address: [address] [place] [address] Performed By: #### 5 8410-2 ####[facility] LABORATORYCLIA [id number] [address] STATES [place] Platelets (Bld) [#/Vol] 333 10*3/uL Normal 150-400 [facility] Comment on above: Order Comment: Speci men Type: BLOOD SPECIMENOrdering Facility: [facility] Address: [address] [place] [address] Performed By: #### 5 8410-2 ####[facility] LABORATORYCLIA [id number] [address] STATES OF [facility] RBC (Bld) [#/Vol] 3.03 10*6/uL Low 3.90-5.20 [facility] Comment on above: Order Comment: Speci men Type: BLOOD SPECIMENOrdering Facility: [facility] Address: [address] [place] [address] Performed By: #### 5 8410-2 ####[facility] LABORATORYCLIA [id number] [address] OF [facility] WBC (Bld) [#/Vol] 16.79 10*3/uL High 3.70-11.00 [facility] Comment on above: Order Comment: Speci men Type: BLOOD SPECIMENOrdering Facility: [facility] Address: [address] [place] [address] Performed By: #### 5 8410-2 ####[facility] LABORATORYCLIA [id number] [address] CONSULT PROGon 12-27-2022 CONSULT PROG Normal [facility] CRP SerPl-mCncon 12-27-2022 CRP [Mass/Vol] 12.9 mg/dL High <0.9 [facility] Comment on above: Order Comment: Speci men Type: BLOOD SPECIMENOrdering Facility: [facility] Address: [address] [place] [address] Performed By: #### 2 4321-2, 1987-, 2777-1, 33664-1 ####[facility] LABORATORYCLIA [id number] [address] Calcium.ionized [Moles/Vol]o n 12-27-2022 Calcium.ionized (BldV) [Mass/Vol] 1.06 mmol/L Low 1.08-1.30 [facility] Comment on above: Order Comment: Speci men Type: BLOOD SPECIMENOrdering Facility: [facility] Address: [address] [place] [address] Performed By: #### 1 995-0 ####[facility] LABORATORYCLIA [id number] [place] [address] [place] Calcium.ionized adjusted to pH 7.4 (Bld) [Moles/Vol] 1.11 mmol/L Normal 1.08-1.30 [facility] Comment on above: Order Comment: Speci men Type: BLOOD SPECIMENOrdering Facility: [facility] Address: [address] [place] [address] Performed By: #### 1 995-0 ####[facility] LABORATORYCLIA [id number] [place] [address] [place] Magnesium SerPl-[facility] 12-27 Magnesium [Mass/Vol] 1.7 mg/dL Normal 1.7-2.3 [facility] Comment on above: Order Comment: Speci men Type: BLOOD SPECIMENOrdering Facility: [facility] Address: [address] [place] [address] Performed By: #### 2 4321-2, 1988-03, 2776-12, ####[facility] LABORATORYCLIA [id number] [place] [address] [place] Phosphate SerPl-mCncon 12-27 Phosphate [Mass/Vol] 4.4 mg/dL Normal 2.7-4.8 [facility] Comment on above: Order Comment: Speci men Type: BLOOD SPECIMENOrdering Facility: [facility] Address: [address] [place] [address] Performed By: #### 2 4321-2, 1988-03, 2776-12, ####[facility] LABORATORYCLIA [id number] [place] [address] [place] XR CHEST 1V FRONTALon 2022 XR CHEST 1V FRONTAL Normal [facility] ALLIED HEALTHon 12-26-2022 ALLIED HEALTH Normal [facility] ALLIED HEALTH Normal [facility] ANES PRE-OPon 12-26-2022 ANES PRE-OP Normal [facility] Basic metabolic 2000 panelon 12-26-2022 Anion gap [Moles/Vol] 10 mmol/L Normal 9-18 [facility] Comment on above: Order Comment: Speci men Type: BLOOD SPECIMENOrdering Facility: [facility] Address: [address] [address] Performed By: #### 2 4321-2, 2570-8, 77694-2, 2776- ####[facility] LABORATORYCLIA [id number] [place] [address] [place] Calcium [Mass/Vol] 9.1 mg/dL Normal 8.5-10.2 [facility] Comment on above: Order Comment: Speci men Type: BLOOD SPECIMENOrdering Facility: [facility] Address: [address] [place] [address] Performed By: #### 2 4321-2, 2570-8, 54619-6, 2776-12 ####[facility] LABORATORYCLIA [id number] [place] [address] [place] Chloride [Moles/Vol] 101 mmol/L Normal 97-105 [facility] Comment on above: Order Comment: Speci men Type: BLOOD SPECIMENOrdering Facility: [facility] Address: [address] [place] [address] Performed By: #### 2 4321-2, 2570-8, 11320-8, 2776- ####[facility] LABORATORYCLIA [id number] [place] [id number] [place] CO2 [Moles/Vol] 26 mmol/L Normal 22-30 [facility] Comment on above: Order Comment: Speci men Type: BLOOD SPECIMENOrdering Facility: [facility] Address: [address] [place] [address] Performed By: #### 2 4321-2, 2570-8, 74281-8, 2776-12 ####[facility]PITALCLIA [id number] [place] [address] [place] Creatinine [Mass/Vol] 1.14 mg/dL High 0.58-0.96 [facility] Comment on above: Order Comment: Roberto talbot Type: BLOOD SPECIMENOrdering Facility: [facility] Address: [address] [address] Performed By: #### 2 4321-2, 2570-8, , 2776-12 ####[facility] HOSPITALIA [id number] [place] [address] [place] ESTIMATED GLOMERULAR FILTRATION RATE 61 mL/min/1.73m??? Normal >=60 [facility] Comment on above: Order Comment: Roberto dahiana Type: BLOOD SPECIMENOrdering Facility: [facility] Address: [address] [place] [address] Result Comment: Gayle mated Glomerular Filtration Rate [...] By: #### 2 4321-2, 2570-8, , 2776-12 ####[facility] HOSPITALIA [id number] [place] [address] [place] Glucose [Mass/Vol] 246 mg/dL High 74-99 [facility] Comment on above: Order Comment: Roberto dahiana Type: BLOOD SPECIMENOrdering Facility: [facility] Address: [address] [address] Result Comment: The [place] Diabetes Association (ADA) provides guidance for [...] Standards of Medical Care in Diabetes 2016, [place] [employer]. Diabetes Care. 2016.39(Suppl 1). Performed By: #### 2 4321-2, 2571-8, 16306-5, 2776- ####[facility] LABORATORYCLIA [id number] [address] STATES OF [facility] Potassium [Moles/Vol] 4.4 mmol/L Normal 3.7-5.1 [facility] Comment on above: Order Comment: Roberto talbot Type: BLOOD SPECIMENOrdering Facility: [facility] Address: [address] [place] [address] Performed By: #### 2 4321-2, 2570-8, , 2776- ####[facility] LABORATORYCLIA [id number] [address] STATES OF [facility] Sodium [Moles/Vol] 137 mmol/L Normal 136-144 [facility] Comment on above: Order Comment: Roberto talbot Type: BLOOD SPECIMENOrdering Facility: [facility] Address: [address] [place] [address] Performed By: #### 2 4321-2, 2570-8, 39344-1, 2776-1 ####[facility] LABORATORYCLIA [id number] [address] [place] Urea nitrogen [Mass/Vol] 20 mg/dL Normal 7-21 [facility] Comment on above: Order Comment: Roberto talbot Type: BLOOD SPECIMENOrdering Facility: [facility] Address: [address] [place] [address] Performed By: #### 2 4321-2, 2570-8, 60564-3, 2776-1 ####[facility] LABORATORYCLIA [id number] [place] [address] [place] CASE MGT INIT ASSESon 2022 CASE MGT INIT ASSES Normal [facility] CBC panel Auto (Bld)on 12-26 Erythrocyte distribution width (RBC) [Ratio] 16.4 % High 11.5-15.0 [facility] Comment on above: Order Comment: Speci men Type: BLOOD SPECIMENOrdering Facility: [facility] Address: [address] [place] [address] Performed By: #### 5 8410-2 ####[facility] LABORATORYCLIA [id number] [address] OF [facility] Hematocrit (Bld) [Volume fraction] 29.4 % Low 36.0-46.0 [facility] Comment on above: Order Comment: Speci men Type: BLOOD SPECIMENOrdering Facility: [facility] Address: [address] [place] [address] Performed By: #### 5 8410-2 ####[facility] LABORATORYCLIA [id number] [address] STATES OF [facility] Hemoglobin (Bld) [Mass/Vol] 8.8 g/dL Low 11.5-15.5 [facility] Comment on above: Order Comment: Speci men Type: BLOOD SPECIMENOrdering Facility: [facility] Address: [address] [place] [address] Performed By: #### 5 8410-2 ####[facility] LABORATORYCLIA [id number] [address] [place] MCH (RBC) [Entitic mass] 28.7 pg Normal 26.0-34.0 [facility] Comment on above: Order Comment: Speci men Type: BLOOD SPECIMENOrdering Facility: [facility] Address: [address] [place] [address] Performed By: #### 5 8410-2 ####[facility] LABORATORYCLIA [id number] [address] [place] MCHC (RBC) [Mass/Vol] 29.9 g/dL Low 30.5-36.0 [facility] Comment on above: Order Comment: Speci men Type: BLOOD SPECIMENOrdering Facility: [facility] Address: [address] [address] Performed By: #### 5 8410-2 ####[facility] LABORATORYCLIA [id number] [address] MCV (RBC) [Entitic vol] 95.8 fL Normal 80.0-100.0 [facility] Comment on above: Order Comment: Speci men Type: BLOOD SPECIMENOrdering Facility: [facility] Address: [address] [address] Performed By: #### 5 8410-2 ####[facility] LABORATORYCLIA [id number] [address] Nucleated RBC (Bld) [#/Vol] 10*3/uL Normal <0.01 [facility] Comment on above: Order Comment: Speci men Type: BLOOD SPECIMENOrdering Facility: [facility] Address: [address] [address] Performed By: #### 5 8410-2 ####[facility] LABORATORYCLIA [id number] [address] Platelet mean volume (Bld) [Entitic vol] 9.4 fL Normal 9.0-12.7 [facility] Comment on above: Order Comment: Speci men Type: BLOOD SPECIMENOrdering Facility: [facility] Address: [address] [place] [address] Performed By: #### 5 8410-2 ####[facility] LABORATORYCLIA [id number] [address] Platelets (Bld) [#/Vol] 304 10*3/uL Normal 150-400 [facility] Comment on above: Order Comment: Speci men Type: BLOOD SPECIMENOrdering Facility: [facility] Address: [address] [place] [address] Performed By: #### 5 8410-2 ####[facility] LABORATORYCLIA [id number] [place] [address] [place] RBC (Bld) [#/Vol] 3.07 10*6/uL Low 3.90-5.20 [facility] Comment on above: Order Comment: Speci men Type: BLOOD SPECIMENOrdering Facility: [facility] Address: [address] [place] [address] Performed By: #### 5 8410-2 ####[facility] LABORATORYCLIA [id number] [address] OF [facility] WBC (Bld) [#/Vol] 17.12 10*3/uL High 3.70-11.00 [facility] Comment on above: Order Comment: Speci men Type: BLOOD SPECIMENOrdering Facility: [facility] Address: [address] [place] [address] Performed By: #### 5 8410-2 ####[facility] LABORATORYCLIA [id number] [address] CONSULT PROGon 12-26-2022 CONSULT PROG Normal [facility] Calcium.ionized [Moles/Vol]o n 12-26-2022 Calcium.ionized (BldV) [Mass/Vol] 1.22 mmol/L Normal 1.08-1.30 [facility] Comment on above: Order Comment: Speci men Type: BLOOD SPECIMENOrdering Facility: [facility] Address: [address] [place] [address] Performed By: #### 1 995-0 ####[facility] LABORATORYCLIA [id number] [address] Calcium.ionized adjusted to pH 7.4 (Bld) [Moles/Vol] 1.21 mmol/L Normal 1.08-1.30 [facility] Comment on above: Order Comment: Speci men Type: BLOOD SPECIMENOrdering Facility: [facility] Address: [address] [place] [address] Performed By: #### 1 995-0 ####[facility] LABORATORYCLIA [id number] [address] HCG ( test) Ql (U)o n 12-26-2022 Specific gravity (U) [Rel density] 1.020 Normal 1.006-1.029 [facility] Comment on above: Order Comment: Speci men Type: URINE SPECIMENOrdering Facility: [facility] Address: [address] [place] [address] Result Comment: If s pecific gravity is <1.005 then results may be falsely negative. Serum HCG is recommended. Performed By: #### 2 106-3 ####[facility] LABORATORYCLIA [id number] [place] [address] [place] HCG Preg Ur Qlon 12-26-2022 HCG ( test) Ql (U) Negative Normal Negative [facility] Comment on above: Order Comment: Roberto talbot Type: URINE SPECIMENOrdering Facility: [facility] Address: [address] [place] [address] Result Comment: This test is intended to aid in the early detection of . Very dilute urine samples, as indicated by a low specific gravity, may not contain home furnishings sales representative levels of hCG. This test detects [...] for . Performed By: #### 2 106-3 ####[facility] LABORATORYCLIA [id number] [place] [address] [place] Magnesium SerPl-mCncon 12-26 Magnesium [Mass/Vol] 1.4 mg/dL Low 1.7-2.3 [facility] Comment on above: Order Comment: Roberto talbot Type: BLOOD SPECIMENOrdering Facility: [facility] Address: [address] [place] [address] Performed By: #### 2 4321-2, 2571-8, 45476-5, 2777-1 ####[facility] LABORATORYCLIA [id number] [place] [id number] [facility] OPERATIVE NOon 12-26-2022 OPERATIVE NO Normal [facility] Phosphate SerPl-mCncon 12-26 Phosphate [Mass/Vol] 3.0 mg/dL Normal 2.7-4.8 [facility] Comment on above: Order Comment: Speci men Type: BLOOD SPECIMENOrdering Facility: [facility] Address: [address] [place] [address] Performed By: #### 2 4321-2, 2570-8, , 2776-12 ####[facility] LABORATORYCLIA [id number] [address] Trigl SerPl-mCncon Triglyceride [Mass/Vol] 198 mg/dL High <150 A [facility] Comment on above: Order Comment: Speci men Type: BLOOD SPECIMENOrdering Facility: [facility] Address: [address] [place] [address] Result Comment: <150 mg/dL, Normal 150-199 mg/dL, Borderline high 200-499 mg/dL, High>499 mg/dL, Very highReference:1. National Cholesterol Education Program ATP III Guideline At-A-Glance Quick Desk Reference: National Heart, Lung, and Blood [place]. National Institutes of Health. 2001: NIH Publication No. 01-3305. Performed By: #### 2 4321-2, 2570-8, , 2776-12 ####[facility] LABORATORYCLIA [id number] [address] Triglyceride [Mass/Vol]on FASTING TIME 0 hrs Normal [facility] Comment on above: Order Comment: Speci men Type: BLOOD SPECIMENOrdering Facility: [facility] Address: [address] [place] [address] Result Comment: impa ct 1.5 tube feed continuous Performed By: #### 2 4321-2, 2570-8, , 2776-12 ####[facility] LABORATORYCLIA [id number] [place] [address] [place] XR CHEST 1V FRONTALon 2022 XR CHEST 1V FRONTAL Normal [facility] ALLIED HEALTHon 12-25-2022 ALLIED HEALTH Normal [facility] ALLIED HEALTH Normal [facility] ANES POSTPROC EVALon 023 ANES POSTPROC EVAL Normal [facility] ANES PRE-OPon 12-25-2022 ANES PRE-OP Normal [facility] ARTERIAL BLOOD GASESon 12-25 Base excess Calc (Bld) [Moles/Vol] 0 mmol/L Normal 0-2 [facility] Comment on above: Order Comment: Speci men Type: ARTERIAL BLOOD SPECIMENOrdering Facility: [facility] Address: [address] [place] [address] Performed By: #### A LLBG ####[facility] LABORATORYCLIA [id number] [address] [place] Body temperature 98.96 [degF] Normal [facility] Comment on above: Order Comment: Speci men Type: ARTERIAL BLOOD SPECIMENOrdering Facility: [facility] Address: [address] [place] [address] Performed By: #### A LLBG ####[facility] LABORATORYCLIA [id number] [address] [place] Calcium.ionized (BldV) [Mass/Vol] 1.18 mmol/L Normal 1.08-1.30 [facility] Comment on above: Order Comment: Speci men Type: ARTERIAL BLOOD SPECIMENOrdering Facility: [facility] Address: [address] [place] [address] Performed By: #### A LLBG ####[facility]ORATORYCLIA [id number] [address] [place] Calcium.ionized adjusted to pH 7.4 (BldA) [Moles/Vol] 1.15 mmol/L Normal 1.08-1.30 [facility] Comment on above: Order Comment: Speci men Type: ARTERIAL BLOOD SPECIMENOrdering Facility: [facility] Address: [address] [address] Performed By: #### A LLBG ####[facility]ORATORYCLIA [id number] [address] OF [place] Carboxyhemoglobin (BldA) [Mass fraction] <1.0 Normal 0.0-2.0 [facility] Comment on above: Order Comment: Speci men Type: ARTERIAL BLOOD SPECIMENOrdering Facility: [facility] Address: [address] [place] [address] Result Comment: Carb oxyhemoglobin Reference Range for Smokers: 2.0-8.0% Performed By: #### A LLBG ####[facility]ORATORYCLIA [id number] [address] [place] Chloride [Moles/Vol] 102 mmol/L Normal 102-109 [facility] Comment on above: Order Comment: Speci men Type: ARTERIAL BLOOD SPECIMENOrdering Facility: [facility] Address: [address] [place] [address] Performed By: #### A LLBG ####[facility]ORATORYCLIA [id number] [address] [place] CO2 (Bld) [Partial pressure] 48 mm Hg High 36-46 [facility] Comment on above: Order Comment: Speci men Type: ARTERIAL BLOOD SPECIMENOrdering Facility: [facility] Address: [address] [place] [address] Performed By: #### A LLBG ####[facility]ORATORYCLIA [id number] [address] [place] CO2 [Moles/Vol] 24 mmol/L Normal 22-28 [facility] Comment on above: Order Comment: Speci men Type: ARTERIAL BLOOD SPECIMENOrdering Facility: [facility] Address: [address] [place] [address] Performed By: #### A LLBG ####[facility]ORATORYCLIA [id number] [address] [place] CO2 adjusted to patient's actual temperature (Bld) [Partial pressure] 48 mmHg High 36-46 [facility] Comment on above: Order Comment: Speci men Type: ARTERIAL BLOOD SPECIMENOrdering Facility: [facility] Address: [address] [place] [address] Performed By: #### A LLBG ####[facility]ORATORYCLIA [id number] [address] [place] Glucose [Mass/Vol] 188 mg/dL High 60-105 [facility] Comment on above: Order Comment: Speci men Type: ARTERIAL BLOOD SPECIMENOrdering Facility: [facility] Address: [address] [place] [address] Performed By: #### A LLBG ####[facility]ORATORYCLIA [id number] [address] [place] HCO3 (Bld) [Moles/Vol] 26 mmol/L Normal 22-26 [facility] Comment on above: Order Comment: Speci men Type: ARTERIAL BLOOD SPECIMENOrdering Facility: [facility] Address: [address] [place] [address] Performed By: #### A LLBG ####[facility]ORATORYCLIA [id number] [address] [place] Hematocrit (Bld) [Volume fraction] 28.1 % Low 36.0-46.0 [facility] Comment on above: Order Comment: Speci men Type: ARTERIAL BLOOD SPECIMENOrdering Facility: [facility] Address: [address] [place] [address] Performed By: #### A LLBG ####[facility]ORATORYCLIA [id number] [place] [address] [place] Hemoglobin (Bld) [Mass/Vol] 9.1 g/dL Low 11.5-15.5 [facility] Comment on above: Order Comment: Speci men Type: ARTERIAL BLOOD SPECIMENOrdering Facility: [facility] Address: [address] [place] [address] Performed By: #### A LLBG ####[facility]ATORYCLIA [id number] [address] Lactate [Moles/Vol] 0.8 mmol/L Normal 0.5-2.2 [facility] Comment on above: Order Comment: Speci men Type: ARTERIAL BLOOD SPECIMENOrdering Facility: [facility] Address: [address] [place] [address] Performed By: #### A LLBG ####[facility] LABORATORYCLIA [id number] [address] Methemoglobin (Bld) [Mass fraction] % Normal 0.0-1.5 [facility] Comment on above: Order Comment: Speci men Type: ARTERIAL BLOOD SPECIMENOrdering Facility: [facility] Address: [address] [place] [address] Performed By: #### A LLBG ####[facility]ORATORYCLIA [id number] [address] O2 THERAPY Ventilator Normal [facility] Comment on above: Order Comment: Speci men Type: ARTERIAL BLOOD SPECIMENOrdering Facility: [facility] Address: [address] [place] [address] Performed By: #### A LLBG ####[facility]ORATORYCLIA [id number] [address] Oxygen (Bld) [Partial pressure] 174 mm Hg High 85-95 [facility] Comment on above: Order Comment: Speci men Type: ARTERIAL BLOOD SPECIMENOrdering Facility: [facility] Address: [address] [place] [address] Performed By: #### A LLBG ####[facility] LABORATORYCLIA [id number] [address] Oxygen adjusted to patient's actual temperature (Bld) [Partial pressure] 175 mmHg High 85-95 [facility] Comment on above: Order Comment: Speci men Type: ARTERIAL BLOOD SPECIMENOrdering Facility: [facility] Address: [address] [place] [address] Performed By: #### A LLBG ####[facility] LABORATORYCLIA [id number] [address] [place] Oxyhemoglobin (BldA) [Mass fraction] 96 % Normal 95-98 [facility] Comment on above: Order Comment: Speci men Type: ARTERIAL BLOOD SPECIMENOrdering Facility: [facility] Address: [address] [place] [address] Performed By: #### A LLBG ####[facility] [facility]ORATORYCLIA [id number] [place] [address] [place] pH (Bld) 7.35 [pH] Normal 7.35-7.45 [facility] Comment on above: Order Comment: Speci men Type: ARTERIAL BLOOD SPECIMENOrdering Facility: [facility] Address: [address] [place] [address] Performed By: #### A LLBG ####[facility] LABORATORYCLIA [id number] [address] pH adjusted to patient's actual temperature (Bld) 7.35 Normal 7.35-7.45 [facility] Comment on above: Order Comment: Speci men Type: ARTERIAL BLOOD SPECIMENOrdering Facility: [facility] Address: [address] [place] [address] Performed By: #### A LLBG ####[facility] LABORATORYCLIA [id number] [place] [address] [place] Potassium [Moles/Vol] 4.9 mmol/L Normal 3.5-5.0 [facility] Comment on above: Order Comment: Speci men Type: ARTERIAL BLOOD SPECIMENOrdering Facility: [facility] Address: [address] [place] [address] Performed By: #### A LLBG ####[facility] LABORATORYCLIA [id number] [address] [place] Sodium [Moles/Vol] 137 mmol/L Normal 136-144 [facility] Comment on above: Order Comment: Speci men Type: ARTERIAL BLOOD SPECIMENOrdering Facility: [facility] Address: [address] [place] [address] Performed By: #### A LLBG ####[facility]ORATORYCLIA [id number] [address] Base deficit (BldA) [Moles/Vol] -2 mmol/L Normal -2-0 [facility] Comment on above: Order Comment: Speci men Type: ARTERIAL BLOOD SPECIMENOrdering Facility: [facility] Address: [address] [place] [address] Performed By: #### A LLBG ####[facility]ORATORYCLIA [id number] [address] Body temperature 98.78 [degF] Normal [facility] Comment on above: Order Comment: Speci men Type: ARTERIAL BLOOD SPECIMENOrdering Facility: [facility] Address: [address] [place] [address] Performed By: #### A LLBG ####[facility]ORATORYCLIA [id number] [address] Calcium.ionized (BldV) [Mass/Vol] 1.06 mmol/L Low 1.08-1.30 [facility] Comment on above: Order Comment: Speci men Type: ARTERIAL BLOOD SPECIMENOrdering Facility: [facility] Address: [address] [place] [address] Performed By: #### A LLBG ####[facility]ORATORYCLIA [id number] [address] Calcium.ionized adjusted to pH 7.4 (BldA) [Moles/Vol] 1.01 mmol/L Low 1.08-1.30 [facility] Comment on above: Order Comment: Speci men Type: ARTERIAL BLOOD SPECIMENOrdering Facility: [facility] Address: [address] [place] [address] Performed By: #### A LLBG ####[facility]ORATORYCLIA [id number] [address] [place] Carboxyhemoglobin (BldA) [Mass fraction] 2.2 % High 0.0-2.0 [facility] Comment on above: Order Comment: Speci men Type: ARTERIAL BLOOD SPECIMENOrdering Facility: [facility] Address: [address] [place] [address] Result Comment: Carb oxyhemoglobin Reference Range for Smokers: 2.0-8.0% Performed By: #### A LLBG ####[facility] LABORATORYCLIA [id number] [address] [place] Chloride [Moles/Vol] 110 mmol/L High 102-109 [facility] Comment on above: Order Comment: Speci men Type: ARTERIAL BLOOD SPECIMENOrdering Facility: [facility] Address: [address] [place] [address] Performed By: #### A LLBG ####[facility]ORATORYCLIA [id number] [address] [place] CO2 (Bld) [Partial pressure] 47 mm Hg High 36-46 [facility] Comment on above: Order Comment: Speci men Type: ARTERIAL BLOOD SPECIMENOrdering Facility: [facility] Address: [address] [place] [address] Performed By: #### A LLBG ####[facility]ORATORYCLIA [id number] [address] [place] CO2 [Moles/Vol] 22 mmol/L Normal 22-28 [facility] Comment on above: Order Comment: Speci men Type: ARTERIAL BLOOD SPECIMENOrdering Facility: [facility] Address: [address] [place] [address] Performed By: #### A LLBG ####[facility]ORATORYCLIA [id number] [address] [place] CO2 adjusted to patient's actual temperature (Bld) [Partial pressure] 47 mmHg High 36-46 [facility] Comment on above: Order Comment: Speci men Type: ARTERIAL BLOOD SPECIMENOrdering Facility: [facility] Address: [address] [place] [address] Performed By: #### A LLBG ####[facility]ORATORYCLIA [id number] [address] [place] Glucose [Mass/Vol] 162 mg/dL High 60-105 [facility] Comment on above: Order Comment: Speci men Type: ARTERIAL BLOOD SPECIMENOrdering Facility: [facility] Address: [address] [place] [address] Performed By: #### A LLBG ####[facility]ORATORYCLIA [id number] [address] [place] HCO3 (Bld) [Moles/Vol] 23 mmol/L Normal 22-26 [facility] Comment on above: Order Comment: Speci men Type: ARTERIAL BLOOD SPECIMENOrdering Facility: [facility] Address: [address] [place] [address] Performed By: #### A LLBG ####[facility]ORATORYCLIA [id number] [address] [place] Hematocrit (Bld) [Volume fraction] 31.8 % Low 36.0-46.0 [facility] Comment on above: Order Comment: Speci men Type: ARTERIAL BLOOD SPECIMENOrdering Facility: [facility] Address: [address] [place] [address] Performed By: #### A LLBG ####[facility]ORATORYCLIA [id number] [address] [place] Hemoglobin (Bld) [Mass/Vol] 10.3 g/dL Low 11.5-15.5 [facility] Comment on above: Order Comment: Speci men Type: ARTERIAL BLOOD SPECIMENOrdering Facility: [facility] Address: [address] [place] [address] Performed By: #### A LLBG ####[facility]ORATORYCLIA [id number] [address] [place] Lactate [Moles/Vol] 0.6 mmol/L Normal 0.5-2.2 [facility] Comment on above: Order Comment: Speci men Type: ARTERIAL BLOOD SPECIMENOrdering Facility: [facility] Address: [address] [place] [address] Performed By: #### A LLBG ####[facility]ATORYCLIA [id number] [address] Methemoglobin (Bld) [Mass fraction] 1.1 % Normal 0.0-1.5 [facility] Comment on above: Order Comment: Speci men Type: ARTERIAL BLOOD SPECIMENOrdering Facility: [facility] Address: [address] [address] Performed By: #### A LLBG ####[facility]ORATORYCLIA [id number] [address] O2 THERAPY Ventilator Normal [facility] Comment on above: Order Comment: Speci men Type: ARTERIAL BLOOD SPECIMENOrdering Facility: [facility] Address: [address] [place] [address] Performed By: #### A LLBG ####[facility]ORATORYCLIA [id number] [address] [place] Oxygen (Bld) [Partial pressure] 136 mm Hg High 85-95 [facility] Comment on above: Order Comment: Speci men Type: ARTERIAL BLOOD SPECIMENOrdering Facility: [facility] Address: [address] [place] [address] Performed By: #### A LLBG ####[facility]ATORYCLIA [id number] [address] Oxygen adjusted to patient's actual temperature (Bld) [Partial pressure] 137 mmHg High 85-95 [facility] Comment on above: Order Comment: Speci men Type: ARTERIAL BLOOD SPECIMENOrdering Facility: [facility] Address: [address] [address] Performed By: #### A LLBG ####[facility]ATORYCLIA [id number] [address] [place] Oxyhemoglobin (BldA) [Mass fraction] 95 % Normal 95-98 [facility] Comment on above: Order Comment: Speci men Type: ARTERIAL BLOOD SPECIMENOrdering Facility: [facility] Address: [address] [address] Performed By: #### A LLBG ####[facility]ATORYCLIA [id number] [address] [place] pH (Bld) 7.32 [pH] Low 7.35-7.45 [facility] Comment on above: Order Comment: Speci men Type: ARTERIAL BLOOD SPECIMENOrdering Facility: [facility] Address: [address] [place] [address] Performed By: #### A LLBG ####[facility]ORATORYCLIA [id number] [address] [place] pH adjusted to patient's actual temperature (Bld) 7.32 Low 7.35-7.45 [facility] Comment on above: Order Comment: Speci men Type: ARTERIAL BLOOD SPECIMENOrdering Facility: [facility] Address: [address] [place] [address] Performed By: #### A LLBG ####[facility]ORATORYCLIA [id number] [address] [place] Potassium [Moles/Vol] 4.3 mmol/L Normal 3.5-5.0 [facility] Comment on above: Order Comment: Speci men Type: ARTERIAL BLOOD SPECIMENOrdering Facility: [facility] Address: [address] [place] [address] Performed By: #### A LLBG ####[facility]ORATORYCLIA [id number] [address] [place] Sodium [Moles/Vol] 135 mmol/L Low 136-144 [facility] Comment on above: Order Comment: Speci men Type: ARTERIAL BLOOD SPECIMENOrdering Facility: [facility] Address: [address] [place] [address] Performed By: #### A LLBG ####[facility]ORATORYCLIA [id number] [address] [place] Base deficit (BldA) [Moles/Vol] -1 mmol/L Normal -2-0 [facility] Comment on above: Order Comment: Speci men Type: ARTERIAL BLOOD SPECIMENOrdering Facility: [facility] Address: [address] [place] [address] Performed By: #### A LLBG ####[facility]ORATORYCLIA [id number] [address] Body temperature 97.52 [degF] Normal [facility] Comment on above: Order Comment: Speci men Type: ARTERIAL BLOOD SPECIMENOrdering Facility: [facility] Address: [address] [place] [address] Performed By: #### A LLBG ####[facility]ORATORYCLIA [id number] [address] [place] Calcium.ionized (BldV) [Mass/Vol] 1.18 mmol/L Normal 1.08-1.30 [facility] Comment on above: Order Comment: Speci men Type: ARTERIAL BLOOD SPECIMENOrdering Facility: [facility] Address: [address] [place] [address] Performed By: #### A LLBG ####[facility]ORATORYCLIA [id number] [address] Calcium.ionized adjusted to pH 7.4 (BldA) [Moles/Vol] 1.08 mmol/L Normal 1.08-1.30 [facility] Comment on above: Order Comment: Speci men Type: ARTERIAL BLOOD SPECIMENOrdering Facility: [facility] Address: [address] [place] [address] Performed By: #### A LLBG ####[facility]ORATORYCLIA [id number] [address] [place] Carboxyhemoglobin (BldA) [Mass fraction] 3.0 % High 0.0-2.0 [facility] Comment on above: Order Comment: Speci men Type: ARTERIAL BLOOD SPECIMENOrdering Facility: [facility] Address: [address] [place] [address] Result Comment: Carb oxyhemoglobin Reference Range for Smokers: 2.0-8.0% Performed By: #### A LLBG ####[facility]ATORYCLIA [id number] [address] [place] Chloride [Moles/Vol] 104 mmol/L Normal 102-109 [facility] Comment on above: Order Comment: Speci men Type: ARTERIAL BLOOD SPECIMENOrdering Facility: [facility] Address: [address] [address] Performed By: #### A LLBG ####[facility]ORATORYCLIA [id number] [address] [place] CO2 (Bld) [Partial pressure] 63 mm Hg High 36-46 [facility] Comment on above: Order Comment: Speci men Type: ARTERIAL BLOOD SPECIMENOrdering Facility: [facility] Address: [address] [place] [address] Performed By: #### A LLBG ####[facility]ATORYCLIA [id number] [address] [place] CO2 [Moles/Vol] 25 mmol/L Normal 22-28 [facility] Comment on above: Order Comment: Speci men Type: ARTERIAL BLOOD SPECIMENOrdering Facility: [facility] Address: [address] [place] [address] Performed By: #### A LLBG ####[facility]ATORYCLIA [id number] [address] [place] CO2 adjusted to patient's actual temperature (Bld) [Partial pressure] 61 mmHg High 36-46 [facility] Comment on above: Order Comment: Speci men Type: ARTERIAL BLOOD SPECIMENOrdering Facility: [facility] Address: [address] [address] Performed By: #### A LLBG ####[facility]ORATORYCLIA [id number] [address] [place] FIO2 80 % Normal [facility] Comment on above: Order Comment: Speci men Type: ARTERIAL BLOOD SPECIMENOrdering Facility: [facility] Address: [address] [address] Performed By: #### A LLBG ####[facility]ATORYCLIA [id number] [address] [place] Glucose [Mass/Vol] 162 mg/dL High 60-105 [facility] Comment on above: Order Comment: Speci men Type: ARTERIAL BLOOD SPECIMENOrdering Facility: [facility] Address: [address] [place] [address] Performed By: #### A LLBG ####[facility]ATORYCLIA [id number] [place] [address] [place] HCO3 (Bld) [Moles/Vol] 26 mmol/L Normal 22-26 [facility] Comment on above: Order Comment: Speci men Type: ARTERIAL BLOOD SPECIMENOrdering Facility: [facility] Address: [address] [place] [address] Performed By: #### A LLBG ####[facility]ORATORYCLIA [id number] [address] [place] Hematocrit (Bld) [Volume fraction] 29.1 % Low 36.0-46.0 [facility] Comment on above: Order Comment: Speci men Type: ARTERIAL BLOOD SPECIMENOrdering Facility: [facility] Address: [address] [place] [address] Performed By: #### A LLBG ####[facility]ORATORYCLIA [id number] [place] [address] [place] Hemoglobin (Bld) [Mass/Vol] 9.4 g/dL Low 11.5-15.5 [facility] Comment on above: Order Comment: Speci men Type: ARTERIAL BLOOD SPECIMENOrdering Facility: [facility] Address: [address] [place] [address] Performed By: #### A LLBG ####[facility]ATORYCLIA [id number] [address] [place] Lactate [Moles/Vol] 0.5 mmol/L Normal 0.5-2.2 [facility] Comment on above: Order Comment: Speci men Type: ARTERIAL BLOOD SPECIMENOrdering Facility: [facility] Address: [address] [place] [address] Performed By: #### A LLBG ####[facility]ORATORYCLIA [id number] [address] Methemoglobin (Bld) [Mass fraction] 1.1 % Normal 0.0-1.5 [facility] Comment on above: Order Comment: Speci men Type: ARTERIAL BLOOD SPECIMENOrdering Facility: [facility] Address: [address] [place] [address] Performed By: #### A LLBG ####[facility]ORATORYCLIA [id number] [address] O2 THERAPY Ventilator Normal [facility] Comment on above: Order Comment: Speci men Type: ARTERIAL BLOOD SPECIMENOrdering Facility: [facility] Address: [address] [place] [address] Performed By: #### A LLBG ####[facility]ORATORYCLIA [id number] [address] [place] Oxygen (Bld) [Partial pressure] 91 mm Hg Normal 85-95 [facility] Comment on above: Order Comment: Speci men Type: ARTERIAL BLOOD SPECIMENOrdering Facility: [facility] Address: [address] [place] [address] Performed By: #### A LLBG ####[facility]ATORYCLIA [id number] [address] Oxygen adjusted to patient's actual temperature (Bld) [Partial pressure] 88 mmHg Normal 85-95 [facility] Comment on above: Order Comment: Speci men Type: ARTERIAL BLOOD SPECIMENOrdering Facility: [facility] Address: [address] [place] [address] Performed By: #### A LLBG ####[facility]ATORYCLIA [id number] [address] [place] Oxyhemoglobin (BldA) [Mass fraction] 92 % Low 95-98 [facility] Comment on above: Order Comment: Speci men Type: ARTERIAL BLOOD SPECIMENOrdering Facility: [facility] Address: [address] [place] [address] Performed By: #### A LLBG ####[facility]ORATORYCLIA [id number] [address] PEEP/CPAP 10 cmH2O Normal [facility] Comment on above: Order Comment: Speci men Type: ARTERIAL BLOOD SPECIMENOrdering Facility: [facility] Address: [address] [place] [address] Performed By: #### A LLBG ####[facility]ATORYCLIA [id number] [address] [place] pH (Bld) 7.24 [pH] Low 7.35-7.45 [facility] Comment on above: Order Comment: Speci men Type: ARTERIAL BLOOD SPECIMENOrdering Facility: [facility] Address: [address] [place] [address] Performed By: #### A LLBG ####[facility]ATORYCLIA [id number] [address] pH adjusted to patient's actual temperature (Bld) 7.25 Low 7.35-7.45 [facility] Comment on above: Order Comment: Speci men Type: ARTERIAL BLOOD SPECIMENOrdering Facility: [facility] Address: [address] [place] [address] Performed By: #### A LLBG ####[facility]ATORYCLIA [id number] [address] [place] Potassium [Moles/Vol] 4.9 mmol/L Normal 3.5-5.0 [facility] Comment on above: Order Comment: Speci men Type: ARTERIAL BLOOD SPECIMENOrdering Facility: [facility] Address: [address] [place] [address] Performed By: #### A LLBG ####[facility]ATORYCLIA [id number] [address] SET VENTILATOR RESPIRATORY RATE (BPM) 16 BPM Normal [facility] Comment on above: Order Comment: Speci men Type: ARTERIAL BLOOD SPECIMENOrdering Facility: [facility] Address: [address] [id number] Performed By: #### A LLBG ####[facility]ORATORYCLIA [id number] [address] STATES OF [facility] Sodium [Moles/Vol] 134 mmol/L Low 136-144 [facility] Comment on above: Order Comment: Speci men Type: ARTERIAL BLOOD SPECIMENOrdering Facility: [facility] Address: [address] [address] Performed By: #### A LLBG ####[facility]ORATORYCLIA [id number] [address] [place] Bacteria Bld Culton 12-25-19 Bacteria identified Cx Nom (Bld) CULTURE, BLOOD: No growth 5 days Normal [facility] Comment on above: Performed By: #### 6 00-7 ####[facility]ATORYCLIA [id number] [address] Bacteria identified Cx Nom (Bld) CULTURE, BLOOD: No growth 5 days Normal [facility] Comment on above: Performed By: #### 6 00-7 ####[facility]ATORYCLIA [id number] [address] [place] Bacteria Spec Anaerobe Culto n 12-25-2022 Bacteria identified Anaer cx Nom (Unsp spec) CULTURE, ANAEROBE: Moderate mixed anaerobic nando. No Bacteroides fragilis group isolated. No Clostridium perfringens isolated. Normal [facility] Comment on above: Performed By: #### 1 1475-1, 43305-4, 63-3 ####[facility]ORATORYCLIA [id number] [address] [place] Bacteria Tiss Culton 023 Bacteria identified Cx Nom (Tiss) ORGANISM ID: 1 Few Streptococcus anginosus ORGANISM ID: 2 Rare skin nando GRAM STAIN: Few Gram positive cocci Rare Gram negative bacilli No Polymorphonuclear Leukocytes Abnormal [facility] Comment on above: Performed By: #### 1 1475-1, 71794-5, 63-3 ####[facility]ORATORYCLIA [id number] [place] [address] [place] Basic metabolic 2000 panelon 12-25-2022 Anion gap [Moles/Vol] 11 mmol/L Normal 9-18 [facility] Comment on above: Order Comment: Speci men Type: BLOOD SPECIMENOrdering Facility: [facility] Address: [address] [place] [address] Performed By: #### 2 4321-2 ####[facility]ORATORYCLIA [id number] [place] [address] [place] Calcium [Mass/Vol] 8.3 mg/dL Low 8.5-10.2 [facility] Comment on above: Order Comment: Speci men Type: BLOOD SPECIMENOrdering Facility: [facility] Address: [address] [place] [address] Performed By: #### 2 4321-2 ####[facility]ORATORYCLIA [id number] [address] [place] Chloride [Moles/Vol] 100 mmol/L Normal 97-105 [facility] Comment on above: Order Comment: Speci men Type: BLOOD SPECIMENOrdering Facility: [facility] Address: [address] [place] [address] Performed By: #### 2 4321-2 ####[facility]ORATORYCLIA [id number] [address] [place] CO2 [Moles/Vol] 26 mmol/L Normal 22-30 [facility] Comment on above: Order Comment: Speci men Type: BLOOD SPECIMENOrdering Facility: [facility] Address: [address] [place] [address] Performed By: #### 2 4321-2 ####[facility]ORATORYCLIA [id number] [address] [place] Creatinine [Mass/Vol] 1.69 mg/dL High 0.58-0.96 [facility] Comment on above: Order Comment: Speci men Type: BLOOD SPECIMENOrdering Facility: [facility] Address: [address] [place], [place] [address] Performed By: #### 2 4321-2 ####[facility]CLIA [id number] [address] [place] ESTIMATED GLOMERULAR FILTRATION RATE 38 mL/min/1.73m??? Low >=60 [facility] Comment on above: Order Comment: Specernesto dahiana Type: BLOOD SPECIMENOrdering Facility: [facility] Address: [address] [address] Result Comment: Gayle mated Glomerular Filtration Rate [...] actual GFR. Performed By: #### 2 4321-2 ####[facility] HOSPITALIA [id number] [place] [address] [place] Glucose [Mass/Vol] 123 mg/dL High 74-99 [facility] Comment on above: Order Comment: Roberto talbot Type: BLOOD SPECIMENOrdering Facility: [facility] Address: [address] [place] [address] Result Comment: The [place] [employer] (ADA) provides guidance for [...] Standards of Medical Care in Diabetes 2016, [place] [employer]. Diabetes Care. 2016.39(Suppl 1). Performed By: #### 2 4321-2 ####[facility]ORATORYCLIA [id number] [place] [address] [place] Potassium [Moles/Vol] 5.1 mmol/L Normal 3.7-5.1 [facility] Comment on above: Order Comment: Speci men Type: BLOOD SPECIMENOrdering Facility: [facility] Address: [address] [place] [address] Performed By: #### 2 4321-2 ####[facility] LABORATORYCLIA [id number] [place] [address] [place] Sodium [Moles/Vol] 137 mmol/L Normal 136-144 [facility] Comment on above: Order Comment: Speci men Type: BLOOD SPECIMENOrdering Facility: [facility] Address: [address] [place] [address] Performed By: #### 2 4321-2 ####[facility]ORATORYCLIA [id number] [place] [address] [place] Urea nitrogen [Mass/Vol] 30 mg/dL High 7-21 [facility] Comment on above: Order Comment: Speci men Type: BLOOD SPECIMENOrdering Facility: [facility] Address: [address] [place] [address] Performed By: #### 2 4321-2 ####[facility]ORATORYCLIA [id number] [place] [address] [place] Anion gap [Moles/Vol] 10 mmol/L Normal 9-18 [facility] Comment on above: Order Comment: Speci men Type: BLOOD SPECIMENOrdering Facility: [facility] Address: [address] [place] [address] Performed By: #### 2 4321-2 ####[facility]ORATORYCLIA [id number] [place] [address] [place] Calcium [Mass/Vol] 8.6 mg/dL Normal 8.5-10.2 [facility] Comment on above: Order Comment: Speci men Type: BLOOD SPECIMENOrdering Facility: [facility] Address: [address] [place] [address] Performed By: #### 2 4321-2 ####[facility]ORATORYCLIA [id number] [address] [place] Chloride [Moles/Vol] 101 mmol/L Normal 97-105 [facility] Comment on above: Order Comment: Speci men Type: BLOOD SPECIMENOrdering Facility: [facility] Address: [address] [place] [address] Performed By: #### 2 4321-2 ####[facility] LABORATORYCLIA [id number] [address] [place] CO2 [Moles/Vol] 26 mmol/L Normal 22-30 [facility] Comment on above: Order Comment: Speci men Type: BLOOD SPECIMENOrdering Facility: [facility] Address: [address] [place] [address] Performed By: #### 2 4321-2 ####[facility]ITALCLIA [id number] [address] [place] Creatinine [Mass/Vol] 1.52 mg/dL High 0.58-0.96 [facility] Comment on above: Order Comment: Speci men Type: BLOOD SPECIMENOrdering Facility: [facility] Address: [address] [place] [address] Performed By: #### 2 4321-2 ####[facility] LABORATORYCLIA [id number] [address] ESTIMATED GLOMERULAR FILTRATION RATE 43 mL/min/1.73m??? Low >=60 [facility] Comment on above: Order Comment: Speci men Type: BLOOD SPECIMENOrdering Facility: [facility] Address: [address] [place] [address] Result Comment: Gayle mated Glomerular Filtration Rate [...] Performed By: #### 2 4321-2 ####[facility] LABORATORYCLIA [id number] [place] [address] [place] Glucose [Mass/Vol] 92 mg/dL Normal 74-99 [facility] Comment on above: Order Comment: Roberto dahiana Type: BLOOD SPECIMENOrdering Facility: [facility] Address: [address] [place] [address] Result Comment: The [place] [employer] (ADA) provides guidance for [...] Standards of Medical Care in Diabetes 2016, [place] [employer]. Diabetes Care. 2016.39(Suppl 1). Performed By: #### 2 4321-2 ####[facility] LABORATORYCLIA [id number] [place] [address] [place] Potassium [Moles/Vol] 4.9 mmol/L Normal 3.7-5.1 [facility] Comment on above: Order Comment: Roberto dahiana Type: BLOOD SPECIMENOrdering Facility: [facility] Address: [address] [place] [address] Performed By: #### 2 4321-2 ####[facility] LABORATORYCLIA [id number] [place] [address] [place] Sodium [Moles/Vol] 137 mmol/L Normal 136-144 [facility] Comment on above: Order Comment: Roberto dahiana Type: BLOOD SPECIMENOrdering Facility: [facility] Address: [address] [place] [address] Performed By: #### 2 4321-2 ####[facility] LABORATORYCLIA [id number] [place] [address] [place] Urea nitrogen [Mass/Vol] 29 mg/dL High 7-21 [facility] Comment on above: Order Comment: Speci men Type: BLOOD SPECIMENOrdering Facility: [facility] Address: [address] [place] [address] Performed By: #### 2 4321-2 ####[facility] LABORATORYCLIA [id number] [address] CBC panel Auto (Bld)on 12-25 Erythrocyte distribution width (RBC) [Ratio] 16.6 % High 11.5-15.0 [facility] Comment on above: Order Comment: Speci men Type: BLOOD SPECIMENOrdering Facility: [facility] Address: [address] [place] [address] Performed By: #### 5 8410-2 ####[facility] LABORATORYCLIA [id number] [address] Hematocrit (Bld) [Volume fraction] 32.5 % Low 36.0-46.0 [facility] Comment on above: Order Comment: Speci men Type: BLOOD SPECIMENOrdering Facility: [facility] Address: [address] [place] [address] Performed By: #### 5 8410-2 ####[facility] LABORATORYCLIA [id number] [address] Hemoglobin (Bld) [Mass/Vol] 9.7 g/dL Low 11.5-15.5 [facility] Comment on above: Order Comment: Speci men Type: BLOOD SPECIMENOrdering Facility: [facility] Address: [address] [place] [address] Performed By: #### 5 8410-2 ####[facility] LABORATORYCLIA [id number] [address] [place] MCH (RBC) [Entitic mass] 29.2 pg Normal 26.0-34.0 [facility] Comment on above: Order Comment: Speci men Type: BLOOD SPECIMENOrdering Facility: [facility] Address: [address] [place] [address] Performed By: #### 5 8410-2 ####[facility] LABORATORYCLIA [id number] [address] STATES OF [facility] MCHC (RBC) [Mass/Vol] 29.8 g/dL Low 30.5-36.0 [facility] Comment on above: Order Comment: Speci men Type: BLOOD SPECIMENOrdering Facility: [facility] Address: [address] [place] [address] Performed By: #### 5 8410-2 ####[facility] LABORATORYCLIA [id number] [address] [place] MCV (RBC) [Entitic vol] 97.9 fL Normal 80.0-100.0 [facility] Comment on above: Order Comment: Speci men Type: BLOOD SPECIMENOrdering Facility: [facility] Address: [address] [place] [address] Performed By: #### 5 8410-2 ####[facility] LABORATORYCLIA [id number] [address] [place] Nucleated RBC (Bld) [#/Vol] 0.03 10*3/uL High <0.01 [facility] Comment on above: Order Comment: Speci men Type: BLOOD SPECIMENOrdering Facility: [facility] Address: [address] [place] [address] Performed By: #### 5 8410-2 ####[facility] LABORATORYCLIA [id number] [address] [place] Platelet mean volume (Bld) [Entitic vol] 9.5 fL Normal 9.0-12.7 [facility] Comment on above: Order Comment: Speci men Type: BLOOD SPECIMENOrdering Facility: [facility] Address: [address] [place] [address] Performed By: #### 5 8410-2 ####[facility] LABORATORYCLIA [id number] [address] [place] Platelets (Bld) [#/Vol] 323 10*3/uL Normal 150-400 [facility] Comment on above: Order Comment: Speci men Type: BLOOD SPECIMENOrdering Facility: [facility] Address: [address] [place] [place] [address] Performed By: #### 5 8410-2 ####[facility] LABORATORYCLIA [id number] [address] RBC (Bld) [#/Vol] 3.32 10*6/uL Low 3.90-5.20 [facility] Comment on above: Order Comment: Speci men Type: BLOOD SPECIMENOrdering Facility: [facility] Address: [address] [place] [address] Performed By: #### 5 8410-2 ####[facility] LABORATORYCLIA [id number] [address] WBC (Bld) [#/Vol] 19.06 10*3/uL High 3.70-11.00 [facility] Comment on above: Order Comment: Speci men Type: BLOOD SPECIMENOrdering Facility: [facility] Address: [address] [place] [address] Performed By: #### 5 8410-2 ####[facility] LABORATORYCLIA [id number] [address] Erythrocyte distribution width (RBC) [Ratio] 16.5 % High 11.5-15.0 [facility] Comment on above: Order Comment: Speci men Type: BLOOD SPECIMENOrdering Facility: [facility] Address: [address] [place] [address] Performed By: #### 5 8410-2 ####[facility] LABORATORYCLIA [id number] [address] Hematocrit (Bld) [Volume fraction] 32.4 % Low 36.0-46.0 [facility] Comment on above: Order Comment: Speci men Type: BLOOD SPECIMENOrdering Facility: [facility] Address: [address] [place] [address] Performed By: #### 5 8410-2 ####[facility] LABORATORYCLIA [id number] [address] [place] Hemoglobin (Bld) [Mass/Vol] 9.4 g/dL Low 11.5-15.5 [facility] Comment on above: Order Comment: Speci men Type: BLOOD SPECIMENOrdering Facility: [facility] Address: [address] [place] [address] Performed By: #### 5 8410-2 ####[facility]ORATORYCLIA [id number] [address] MCH (RBC) [Entitic mass] 28.2 pg Normal 26.0-34.0 [facility] Comment on above: Order Comment: Speci men Type: BLOOD SPECIMENOrdering Facility: [facility] Address: [address] [place] [address] Performed By: #### 5 8410-2 ####[facility] LABORATORYCLIA [id number] [address] MCHC (RBC) [Mass/Vol] 29.0 g/dL Low 30.5-36.0 [facility] Comment on above: Order Comment: Speci men Type: BLOOD SPECIMENOrdering Facility: [facility] Address: [address] [place] [address] Performed By: #### 5 8410-2 ####[facility]ORATORYCLIA [id number] [address] MCV (RBC) [Entitic vol] 97.3 fL Normal 80.0-100.0 [facility] Comment on above: Order Comment: Speci men Type: BLOOD SPECIMENOrdering Facility: [facility] Address: [address] [place] [address] Performed By: #### 5 8410-2 ####[facility] LABORATORYCLIA [id number] [address] Nucleated RBC (Bld) [#/Vol] 10*3/uL Normal <0.01 [facility] Comment on above: Order Comment: Speci men Type: BLOOD SPECIMENOrdering Facility: [facility] Address: [address] [place] [address] Performed By: #### 5 8410-2 ####[facility] LABORATORYCLIA [id number] [address] [place] Platelet mean volume (Bld) [Entitic vol] 9.7 fL Normal 9.0-12.7 [facility] Comment on above: Order Comment: Speci men Type: BLOOD SPECIMENOrdering Facility: [facility] Address: [address] [place] [address] Performed By: #### 5 8410-2 ####[facility] LABORATORYCLIA [id number] [address] [place] Platelets (Bld) [#/Vol] 308 10*3/uL Normal 150-400 [facility] Comment on above: Order Comment: Speci men Type: BLOOD SPECIMENOrdering Facility: [facility] Address: [address] [place] [address] Performed By: #### 5 8410-2 ####[facility] LABORATORYCLIA [id number] [address] [place] RBC (Bld) [#/Vol] 3.33 10*6/uL Low 3.90-5.20 [facility] Comment on above: Order Comment: Speci men Type: BLOOD SPECIMENOrdering Facility: [facility] Address: [address] [place] [address] Performed By: #### 5 8410-2 ####[facility] LABORATORYCLIA [id number] [address] [place] WBC (Bld) [#/Vol] 17.43 10*3/uL High 3.70-11.00 [facility] Comment on above: Order Comment: Speci men Type: BLOOD SPECIMENOrdering Facility: [facility] Address: [address] [place] [address] Performed By: #### 5 8410-2 ####[facility] LABORATORYCLIA [id number] [address] [place] CONSULT PROGon 12-25-2022 CONSULT PROG Normal [facility] CONSULT PROG Normal [facility] CONSULT PROG Normal [facility] ECG COMPLETEon 12-25-2022 ECG COMPLETE Normal [facility] ED NOTEon 12-25-2022 ED NOTE HNO ID: [id number] Author: Claire Sanchez RN Service: Emergency Medicine Author Type: Registered Nurse Type: ED Notes Filed: 12/25/2022 3:16 AM Note Text: Depart to OR Normal [facility] ED NOTE HNO ID: [id number] Author: Claire Sanchez RN Service: Emergency Medicine Author Type: Registered Nurse Type: ED Notes Filed: 12/25/2022 2:39 AM Note Text: Dr. Reyes at bedside to evaluate pt Normal [facility] ED NOTE HNO ID: [id number] Author: Claire Sanchez RN Service: Emergency Medicine Author Type: Registered Nurse Type: ED Notes Filed: 12/25/2022 2:29 AM Note Text: EKG performed at bedside Normal [facility] ED NOTE HNO ID: [id number] Author: Claire Sanchez RN Service: Emergency Medicine Author Type: Registered Nurse Type: ED Notes Filed: 12/25/2022 2:28 AM Note Text: Normal [facility] ED NOTE HNO ID: [id number] Author: Claire Sanchez RN Service: Emergency Medicine Author Type: Registered Nurse Type: ED Notes Filed: 12/25/2022 2:29 AM Note Text: Surgery at bedside Normal [facility] ED NOTE Normal [facility] ED NOTE HNO ID: [id number] Author: Claire Sanchez RN Service: Emergency Medicine Author Type: Registered Nurse Type: ED Notes Filed: 12/25/2022 1:56 AM Note Text: Dr. Saleh at bedside to evaluate pt Normal [facility] ED NOTE HNO ID: [id number] Author: Sirena Redman RN Service: ? Author Type: Registered Nurse Type: ED Notes Filed: 12/25/2022 1:44 AM Note Text: Bed: 01-ED Expected date: Expected time: Means of arrival: Comments: Inguinal issue Normal [facility] ED PROV NOTEon 12-25-2022 ED PROV NOTE Normal [facility] FLUABV+SARS-CoV-2+RSV Pnl Re sp SURESH+probeon 12-25-2022 FLUABV+SARS-CoV-2+RSV Pnl Resp SURESH+probe Normal [facility] Comment on above: Performed By: #### 9 5941-1 ####[facility] LABORATORYCLIA [id number] [address] [place] HIGH SENSITIVITY TROPONIN To n 12-25-2022 HIGH SENSITIVITY CATERINA 23 ng/L High <12 [facility] Comment on above: Order Comment: Roberto dahiana Type: BLOOD SPECIMENOrdering Facility: [facility] Address: [address] [place] [address] Result Comment: When assessing risk for acute [...] day MACE. Performed By: #### H STNT ####[facility] LABORATORYCLIA [id number] [address] HIGH SENSITIVITY CATERINA 34 ng/L High <12 [facility] Comment on above: Order Comment: Roberto talbot Type: BLOOD SPECIMENOrdering Facility: [facility] Address: [address] [place] [address] Result Comment: When assessing risk for acute [...] day MACE. Performed By: #### H STNT ####[facility] LABORATORYCLIA [id number] [address] [place] HISTORY PHYSICALon HISTORY PHYSICAL Normal [facility] Lactate (Bld) [Moles/Vol]on 12-25-2022 Lactate [Moles/Vol] 0.8 mmol/L Normal 0.5-2.2 [facility] Comment on above: Order Comment: Speci men Type: BLOOD SPECIMENOrdering Facility: [facility] Address: [address] [place] [id number] Performed By: #### 3 2693-4 ####[facility] LABORATORYCLIA [id number] [address] Microorganism Spec Culton Microorganism identified Cx Nom (Unsp spec) CULTURE, FUNGAL: No Fungus isolated after 28 days FUNGAL SMEAR: No fungus seen Normal [facility] Comment on above: Performed By: #### 1 1475-1, 54534-9, 635-3 ####[facility] LABORATORYCLIA [id number] [address] Microorganism identified Cx Nom (Unsp spec) CULTURE, AFB: No Acid Fast Bacilli isolated after 42 days AFB STAIN: No acid fast bacilli seen by flurochrome stain Normal [facility] Comment on above: Performed By: #### 1 1475-1, 35417-3, 635-3 ####[facility] LABORATORYCLIA [id number] [address] [place] NUTRITIONon 12-25-2022 NUTRITION Normal [facility] OPERATIVE NOon 12-25-2022 OPERATIVE NO Normal [facility] PT panel Coag (PPP)on 2022 INR Coag (PPP) [Relative time] 1.1 {INR} Normal 0.9-1.3 [facility] Comment on above: Order Comment: Speci men Type: BLOOD SPECIMENOrdering Facility: [facility] Address: [place] [address] Result Comment: Erika min K Antagonist (VKA) Therapeutic Range: INR 2 to 3 (Target INR of 2.5)Note: For patients treated with VKA drugs, such as warfarin, the [place] [employer] 2012 Guideline [...] al. Chest 2012, 141:7S-47SNishimura RA, et al. [facility] 2017, 70: 252-289 Performed By: #### 3 4528-0 ####[facility] LABORATORYCLIA [id number] [place] [address] [place] PT Coag (PPP) [Time] 11.6 s Normal 9.7-13.0 [facility] Comment on above: Order Comment: Roberto talbot Type: BLOOD SPECIMENOrdering Facility: [facility] Address: [address] [place] [address] Performed By: #### 3 4528-0 ####[facility] LABORATORYCLIA [id number] [address] STAPH AUREUS PCRon S. aureus and MRSA panel SURESH+probe (Nose) Abnormal Negative [facility] Comment on above: Order Comment: Roberto talbot Type: SWAB OF INTERNAL NOSEOrdering Facility: [facility] Address: [address] [place] [address] Result Comment: Posi tive for Staphylococcus aureus by PCR.Positive for MRSA by PCR Performed By: #### S APCR ####[facility] LABORATORYCLIA [id number] [address] [place] SURGICAL PATHOLOGYon 023 CASE REPORT Normal [facility] Comment on above: Order Comment: Roberto talbot Type: TISSUE SPECIMENOrdering Facility: [facility] Address: [address] [place] [address] Result Comment: Surg ical Pathology Report Case: [id number] Provider: Zackery Leblanc MD Collected: 12/25/2022 04:15 AMOrdering Location: [facility] Received: 12/25/2022 08:34 AMPathologist: Raypecimen: DEBRIDEMENT, LEFT GROIN WOUND Performed By: #### S ####[facility] LABORATORYCLIA [id number] [address] CLINICAL HISTORY Normal [facility] Comment on above: Order Comment: Speci men Type: TISSUE SPECIMENOrdering Facility: [facility] Address: [address] [place] [address] Result Comment: Pre- op diagnosis:Necrotizing soft tissue infection [M79.89] Performed By: #### S ####[facility] LABORATORYCLIA [id number] [address] DIAGNOSIS COMMENT Correlation with microbiologic studies is necessary. [facility] Comment on above: Order Comment: Speci men Type: TISSUE SPECIMENOrdering Facility: [facility] Address: [address] [place] [address] Performed By: #### S ####[facility] LABORATORYCLIA [id number] [address] FINAL DIAGNOSIS [facility] Comment on above: Order Comment: Speci men Type: TISSUE SPECIMENOrdering Facility: [facility] Address: [address] [place] [address] Result Comment: A. L eft groin wound, debridement:- Skin and soft tissue with suppurative acute inflammation and focal gangrenous necrosis. See comment. Performed By: #### S ####[facility] LABORATORYCLIA [id number] [address] FINAL PERFORMING LAB Normal [facility] Comment on above: Order Comment: Speci men Type: TISSUE SPECIMENOrdering Facility: [facility] Address: [address] [place] [address] Result Comment: Diag nostic interpretation performed at [facility], [address] [place] [address] CLIA# [id number] Director: Faraz Sawant M.D. Performed By: #### S ####[facility] LABORATORYCLIA [id number] [address] GROSS DESCRIPTION A. DEBRIDEMENT Normal [facility] Comment on above: Order Comment: Speci men Type: TISSUE SPECIMENOrdering Facility: [facility] Address: [address] [place] [address] Result Comment: A. R eceived in formalin labeled left groin wound are multiple brennan-pink to brennan-green rubbery and ischemic appearing segments of tissue aggregating to 15.0 x 7.8 x 3.5 cm. Multiple segments of skin are present and display a jfb-wmwx-zke to pink-green ischemic appearance. 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 Gross examination performed at [facility], [address] [place], [place] [address]KVB December 25, 2022 11:27 AM Performed By: #### S ####[facility] LABORATORYCLIA [id number] [address] TYPE + SCREENon 12-25-2022 ABO O [facility] Comment on above: Order Comment: Speci men Type: BLOOD SPECIMENOrdering Facility: [facility] Address: [address] [place] [address] Performed By: #### T SCR ####[facility] BLOOD BANKCLIA [id number] [address] HISTORICAL AB SCR STATUS Negative [facility] Comment on above: Order Comment: Speci men Type: BLOOD SPECIMENOrdering Facility: [facility] Address: [address] [place] [address] Performed By: #### T SCR ####[facility] BLO[facility] BANKCLIA [id number] [address] Rh Nom (Bld) Negative [facility] Comment on above: Order Comment: Speci men Type: BLOOD SPECIMENOrdering Facility: [facility] Address: [address] [place] [address] Performed By: #### T SCR ####[facility] BLOOD BANKCLIA [id number] [place] [address] [facility] TYPE AND SCREEN EXPIRATION 12/28/2022 23:59 Normal [facility] Comment on above: Order Comment: Speci men Type: BLOOD SPECIMENOrdering Facility: [facility] Address: [address] [place] [id number] Performed By: #### T SCR ####[facility] BLOOD BANKCLIA [id number] [place] [address] [facility] XR CHEST 1V FRONTALon 2022 XR CHEST 1V FRONTAL Normal [facility] XR CHEST 1V FRONTAL Normal [facility] Absolute lymphocyte countOrd ered By: Dr. Kaiser on 12-24-2022 Lymphocytes Auto (Unsp spec) [#/Vol] 2.75 10*3/uL 0.83-4.51 [facility] Basophil percentageOrdered B y: Dr. Kaiser on 12-24-2022 Basophil percentage 99 mg/dL 74-106 [facility] Basophil percentage 7.2 g/dL 6.4-8.2 [facility] Basophil percentage 0.20 mg/dL 0.20-1.00 [facility] Basophil percentage 134 mmol/L 136-145 [facility] Basophil percentage 4.6 mmol/L 3.5-5.1 [facility] Basophil percentage 102 mmol/L 98-107 [facility] Basophil percentage 3.3 mmol/L 0.4-2.0 [facility] Basophils (Bld) [#/Vol] 16.3 10*3/uL 4.4-11.0 [facility] Basophils (Bld) [#/Vol] 12.3 10*3/uL 2.0-7.7 [facility] Basophils/100 WBC (Bld) 0.6 % 0-1 [facility] Basophils/100 WBC (Bld) 75.3 % 47-70 [facility] Basophils/100 WBC (Bld) 2.0 % 0-5 [facility] Bilirubin [Mass/Vol] 0.20 mg/dL 0.20-1.00 [facility] Comment on above: For patients on eltr ombopag therapy, use of Dimension [place] TBIL is not recommended. Chloride [Moles/Vol] 102 mmol/L 98-107 [facility] Eosinophils/100 WBC (Bld) 2.0 % 0-5 [facility] Glucose [Mass/Vol] 99 mg/dL 74-106 [facility] Lactate [Moles/Vol] 3.3 mmol/L 0.4-2.0 [facility] Comment on above: Critical Result(s) C alled at: 22:26:10 12/24/2022 by: Rossy carter TO MMARTIN2. Results read back by same. Neutrophils (Bld) [#/Vol] 12.3 10*3/uL 2.0-7.7 [facility] Neutrophils/100 WBC (Bld) 75.3 % 47-70 [facility] Potassium [Moles/Vol] 4.6 mmol/L 3.5-5.1 [facility] Protein [Mass/Vol] 7.2 g/dL 6.4-8.2 [facility] Sodium [Moles/Vol] 134 mmol/L 136-145 [facility] WBC (Bld) [#/Vol] 16.3 10*3/uL 4.4-11.0 [facility] Blood erythrocytes count (nu mber/volume)Ordered By: Dr. Kaiser on 12-24-2022 RBC (Bld) [#/Vol] 3.52 10*6/uL 4.2-5.4 [facility] Blood hemoglobin measurement (mass/volume)Ordered By: Dr. Kaiser on 12-24-2022 Hemoglobin (Bld) [Mass/Vol] 10.2 g/dL 12.0-15.0 [facility] Blood lymphocytes/100 leukoc ytesOrdered By: Dr. Kaiser on 12-24-2022 Lymphocytes/100 WBC (Bld) 16.9 % 19-41 [facility] Blood monocytes/100 leukocyt esOrdered By: Dr. Kaiser on 12-24-2022 Monocytes/100 WBC (Bld) 4.2 % 0-10 [facility] Blood platelet mean volumeOr dered By: Dr. Kaiser on 12-24-2022 Platelet mean volume (Bld) [Entitic vol] 9.3 fL 6.2-12.0 [facility] Determination of erythrocyte mean corpuscular volume (MCV)Ordered By: Dr. Kaiser on 12-24-2022 MCV (RBC) [Entitic vol] 94.6 fL 81-99 [facility] Hematocrit Auto (Bld) [Volum e fraction]Ordered By: Dr. Kaiser on 12-24-2022 Hematocrit (Bld) [Volume fraction] 33.3 % 37-47 [facility] INR in Blood by Coagulation assayOrdered By: Dr. Kaiser on 12-24-2022 INR Coag (Bld) [Relative time] 1.3 {INR} [facility] Laboratory - Chemistry and C hemistry - challengeOrdered By: Dr. Kaiser on 12-24-2022 ALP [Catalytic activity/Vol] 60 U/L 45-117 [facility] ALT [Catalytic activity/Vol] 41 U/L 13-56 [facility] CO2 [Moles/Vol] 26.0 mmol/L 21.0-32.0 [facility] Globulin (S) [Mass/Vol] 4.8 g/dL 2.2-4.2 [facility] Urea nitrogen/Creatinine [Mass ratio] 16.3 mg/mg 10-20 [facility] - CoagulationOrde red By: Dr. Kaiser on 12-24-2022 aPTT Coag (Bld) [Time] 43.3 s 24.1-36.2 [facility] PT Coag (PPP) [Time] 15.9 s 11.7-14.9 [facility] Laboratory - Hematology and Cell countsOrdered By: Dr. Kaiser on 12-24-2022 Erythrocyte distribution width (RBC) [Entitic vol] 56.8 fL 35.1-43.9 [facility] Erythrocyte distribution width (RBC) [Ratio] 16.3 % 11.6-14.6 [facility] Immature granulocytes/100 WBC (Bld) 1.000 % 0.0-0.9 [facility] Comment on above: IG% - Immature Granu locytes (promyelocytes, myelocytes and metamyelocytes) > 1% indicates that a LEFT SHIFT is Present. MCH (RBC) [Entitic mass] 29.0 pg 27.0-32.0 [facility] Nucleated RBC/100 WBC (Bld) [Ratio] 0.1 % 0-5 [facility] MCHC Auto (RBC) [Mass/Vol]Or dered By: Dr. Kaiser on 12-24-2022 MCHC (RBC) [Mass/Vol] 30.6 g/dL 32-36 [facility] No Panel InformationOrdered By: Dr. Kaiser on 12-24-2022 Estimated Creatinine Clearance Calc 40.17 ml/min [facility] Estimated GFR (MDRD) Amer 41 mL/min >60 [facility] Comment on above: GFR Calc Estimated GFR (MDRD) Non-Af Amer 34 mL/min >60 [facility] Comment on above: Non- GFR Calc 29.0 pg 27.0-32.0 [facility] 16.3 % 11.6-14.6 [facility] 56.8 fl 35.1-43.9 [facility] 1.000 % 0.0-0.9 [facility] 0.1 % 0-5 [facility] 15.9 SECONDS 11.7-14.9 [facility] 43.3 Seconds 24.1-36.2 [facility] 34 mL/min >60 [facility] 41 mL/min >60 [facility] 40.17 ml/min [facility] 16.3 RATIO 10-20 [facility] 4.8 g/dL 2.2-4.2 [facility] 60 U/L 45-117 [facility] 41 U/L 13-56 [facility] 26.0 mmol/L 21.0-32.0 [facility] Platelets bldOrdered By: Dr. Kaiser on 12-24-2022 Platelets (Bld) [#/Vol] 323 10*3/uL 150-450 [facility] Serum or plasma albumin yunior urement (mass/volume)Ordered By: Dr. Kaiser on 12-24-2022 Albumin [Mass/Vol] 2.4 g/dL 3.2-5.0 [facility] Serum or plasma albumin/glob ulin mass ratioOrdered By: Dr. Kaiser on 12-24-2022 Albumin/Globulin [Mass ratio] 0.5 {ratio} 0.9-2.4 [facility] Serum or plasma calcium yunior urement (mass/volume)Ordered By: Dr. Kaiser on 12-24-2022 Calcium [Mass/Vol] 8.7 mg/dL 8.5-10.1 [facility] Serum or plasma creatinine m easurement (mass/volume)Ordered By: Dr. Kaiser on 12-24-2022 Creatinine [Mass/Vol] 1.72 mg/dL 0.55-1.02 [facility] Comment on above: The validity of the calculated GFR & GFRAA in patients over 70 years has not been determined. Clinical correlation is essential. Serum or plasma urea nitroge n measurement (mass/volume)Ordered By: Dr. Kaiser on 12-24-2022 Urea nitrogen [Mass/Vol] 28 mg/dL 7-18 [facility] Thin prep Papanicolaou smear with manual screeningOrdered By: Dr. Kaiser on 12-24-2022 Thin prep Papanicolaou smear with manual screening 36 U/L 15-37 [facility] Thin prep Papanicolaou smear with manual screening 6 5-15 [facility] Absolute lymphocyte countOrd ered By: Dr. Wilkes on 12-20-2022 Lymphocytes Auto (Unsp spec) [#/Vol] 1.45 10*3/uL 0.83-4.51 [facility] Basophil percentageOrdered B y: Dr. Wilkes on 12-20-2022 Basophil percentage 170 mg/dL 74-106 [facility] Basophil percentage 136 mmol/L 136-145 [facility] Basophil percentage 4.8 mmol/L 3.5-5.1 [facility] Basophil percentage 103 mmol/L 98-107 [facility] Basophils (Bld) [#/Vol] 13.8 10*3/uL 4.4-11.0 [facility] Basophils (Bld) [#/Vol] 11.2 10*3/uL 2.0-7.7 [facility] Basophils/100 WBC (Bld) 0.4 % 0-1 [facility] Basophils/100 WBC (Bld) 81.4 % 47-70 [facility] Basophils/100 WBC (Bld) 0.7 % 0-5 [facility] Chloride [Moles/Vol] 103 mmol/L 98-107 [facility] Eosinophils/100 WBC (Bld) 0.7 % 0-5 [facility] Glucose [Mass/Vol] 170 mg/dL 74-106 [facility] Comment on above: Fasting Glucose resu lt greater than or equal to 126 mg/dL suggests DIABETES MELLITUS per A.D.A. criteria. Neutrophils (Bld) [#/Vol] 11.2 10*3/uL 2.0-7.7 [facility] Neutrophils/100 WBC (Bld) 81.4 % 47-70 [facility] Potassium [Moles/Vol] 4.8 mmol/L 3.5-5.1 [facility] Sodium [Moles/Vol] 136 mmol/L 136-145 [facility] WBC (Bld) [#/Vol] 13.8 10*3/uL 4.4-11.0 [facility] Blood erythrocytes count (nu mber/volume)Ordered By: Dr. Wilkes on 12-20-2022 RBC (Bld) [#/Vol] 3.65 10*6/uL 4.2-5.4 [facility] Blood hemoglobin measurement (mass/volume)Ordered By: Dr. Wilkes on 12-20-2022 Hemoglobin (Bld) [Mass/Vol] 10.5 g/dL 12.0-15.0 [facility] Blood lymphocytes/100 leukoc ytesOrdered By: Dr. Wilkes on 12-20-2022 Lymphocytes/100 WBC (Bld) 10.5 % 19-41 [facility] Blood monocytes/100 leukocyt esOrdered By: Dr. Wilkes on 12-20-2022 Monocytes/100 WBC (Bld) 6.3 % 0-10 [facility] Blood platelet mean volumeOr dered By: Dr. Wilkes on 12-20-2022 Platelet mean volume (Bld) [Entitic vol] 10.4 fL 6.2-12.0 [facility] Determination of erythrocyte mean corpuscular volume (MCV)Ordered By: Dr. Wilkes on 12-20-2022 MCV (RBC) [Entitic vol] 94.5 fL 81-99 [facility] Glucose Glucometer (BldC) [M ass/Vol]Ordered By: Dr. Wilkes on 12-20-2022 Glucose [Mass/Vol] 289 mg/dL 74-106 [facility] Comment on above: MANAGEMENT OF PATIEN T CARE PER NURSING PROTOCOL Hematocrit Auto (Bld) [Volum e fraction]Ordered By: Dr. Wilkes on 12-20-2022 Hematocrit (Bld) [Volume fraction] 34.5 % 37-47 [facility] - Chemistry and C hemistry - challengeOrdered By: Dr. Wilkes on 12-20-2022 CO2 [Moles/Vol] 27.0 mmol/L 21.0-32.0 [facility] Urea nitrogen/Creatinine [Mass ratio] 50.0 mg/mg 10-20 [facility] - Hematology and Cell countsOrdered By: Dr. Wilkes on 12-20-2022 Erythrocyte distribution width (RBC) [Entitic vol] 57.7 fL 35.1-43.9 [facility] Erythrocyte distribution width (RBC) [Ratio] 16.5 % 11.6-14.6 [facility] Immature granulocytes/100 WBC (Bld) 0.700 % 0.0-0.9 [facility] Comment on above: IG% - Immature Granu locytes (promyelocytes, myelocytes and metamyelocytes) > 1% indicates that a LEFT SHIFT is Present. MCH (RBC) [Entitic mass] 28.8 pg 27.0-32.0 [facility] Nucleated RBC/100 WBC (Bld) [Ratio] 0 % 0-5 [facility] MCHC Auto (RBC) [Mass/Vol]Or dered By: Dr. Wilkes on 12-20-2022 MCHC (RBC) [Mass/Vol] 30.4 g/dL 32-36 [facility] No Panel InformationOrdered By: Dr. Wilkes on 12-20-2022 Estimated Creatinine Clearance Calc 61.68 ml/min [facility] Estimated GFR (MDRD) Amer 68 mL/min >60 [facility] Comment on above: GFR Calc Estimated GFR (MDRD) Non-Af Amer 56 mL/min >60 [facility] Comment on above: Non- GFR Calc 28.8 pg 27.0-32.0 [facility] 16.5 % 11.6-14.6 [facility] 57.7 fl 35.1-43.9 [facility] 0.700 % 0.0-0.9 [facility] 0 % 0-5 [facility] 56 mL/min >60 [facility] 68 mL/min >60 [facility] 61.68 ml/min [facility] 50.0 RATIO 10-20 [facility] 27.0 mmol/L 21.0-32.0 [facility] Platelets bldOrdered By: Dr. Wilkes on 12-20-2022 Platelets (Bld) [#/Vol] 225 10*3/uL 150-450 [facility] Serum or plasma calcium yunior urement (mass/volume)Ordered By: Dr. Wilkes on 12-20-2022 Calcium [Mass/Vol] 9.1 mg/dL 8.5-10.1 [facility] Serum or plasma creatinine m easurement (mass/volume)Ordered By: Dr. Wilkes on 12-20-2022 Creatinine [Mass/Vol] 1.12 mg/dL 0.55-1.02 [facility] Comment on above: The validity of the calculated GFR & GFRAA in patients over 70 years has not been determined. Clinical correlation is essential. Serum or plasma urea nitroge n measurement (mass/volume)Ordered By: Dr. Wilkes on 12-20-2022 Urea nitrogen [Mass/Vol] 56 mg/dL 06-17 [facility] Thin prep Papanicolaou smear with manual screeningOrdered By: Dr. Wilkes on 12-20-2022 Thin prep Papanicolaou smear with manual screening 6 -15 [facility] Absolute lymphocyte countOrd ered By: Dr. Quintero on 12-18-2022 Lymphocytes Auto (Unsp spec) [#/Vol] 1.63 10*3/uL 0.83-4.51 [facility] Assessment of wrist artery p atency prior to arterial punctureOrdered By: Dr. Quintero on 12-18-2022 Arterial patency Wrist artery --pre arterial puncture Positive [facility] Base excessOrdered By: Dr. Stas mccormack on 12-18-2022 Base excess Calc (BldV) [Moles/Vol] 0 mmol/L -2-2 [facility] Basophil percentageOrdered B y: Dr. Quintero on 12-18-2022 Basophil percentage 26.7 mmol/L 22-26 [facility] Basophils/100 WBC (Bld) 89 % 95-99 [facility] Basophil percentage 0 SEEN /hpf 0-5 [facility] Basophils/100 WBC (Bld) 0.3 % 0-1 [facility] Chloride [Moles/Vol] 98 mmol/L 98-107 [facility] Eosinophils/100 WBC (Bld) 0.3 % 0-5 [facility] Glucose [Mass/Vol] 171 mg/dL 74-106 [facility] Comment on above: Fasting Glucose resu lt greater than or equal to 126 mg/dL suggests DIABETES MELLITUS per A.D.A. criteria. Neutrophils (Bld) [#/Vol] 15.5 10*3/uL 2.0-7.7 [facility] Neutrophils/100 WBC (Bld) 84.5 % 47-70 [facility] Potassium [Moles/Vol] 5.6 mmol/L 3.5-5.1 [facility] Sodium [Moles/Vol] 130 mmol/L 136-145 [facility] WBC (Bld) [#/Vol] 18.3 10*3/uL 4.4-11.0 [facility] Bilirubin Test strip Ql (U)O rdered By: Dr. Quintero on 12-18-2022 Bilirubin Ql (U) Negative Negative [facility] Blood erythrocytes count (nu mber/volume)Ordered By: Dr. Quintero on 12-18-2022 RBC (Bld) [#/Vol] 4.04 10*6/uL 4.2-5.4 [facility] Blood hemoglobin measurement (mass/volume)Ordered By: Dr. Quintero on 12-18-2022 Hemoglobin (Bld) [Mass/Vol] 11.5 g/dL 12.0-15.0 [facility] Blood lymphocytes/100 leukoc ytesOrdered By: Dr. Quintero on 12-18-2022 Lymphocytes/100 WBC (Bld) 8.9 % 19-41 [facility] Blood monocytes/100 leukocyt esOrdered By: Dr. Quintero on 12-18-2022 Monocytes/100 WBC (Bld) 5.2 % 0-10 [facility] Blood platelet mean volumeOr dered By: Dr. Quintero on 12-18-2022 Platelet mean volume (Bld) [Entitic vol] 10.0 fL 6.2-12.0 [facility] CO2 (BldA) [Partial pressure ]Ordered By: Dr. Quintero on 12-18-2022 CO2 (Bld) [Partial pressure] 53.7 mm[Hg] 35-45 [facility] Determination of erythrocyte mean corpuscular volume (MCV)Ordered By: Dr. Quintero on 12-18-2022 MCV (RBC) [Entitic vol] 92.6 fL 81-99 [facility] Hematocrit Auto (Bld) [Volum e fraction]Ordered By: Dr. Quintero on 12-18-2022 Hematocrit (Bld) [Volume fraction] 37.4 % 37-47 [facility] Ketones Test strip Ql (U)Ord ered By: Dr. Quintero on 12-18-2022 Ketones Ql (U) Negative Negative [facility] Laboratory - Chemistry and C hemistry - challengeOrdered By: Dr. Quintero on 12-18-2022 CO2 [Moles/Vol] 27.0 mmol/L 21.0-32.0 [facility] Urea nitrogen/Creatinine [Mass ratio] 33.8 mg/mg 10-20 [facility] - Hematology and Cell countsOrdered By: Dr. Quintero on 12-18-2022 Erythrocyte distribution width (RBC) [Entitic vol] 57.5 fL 35.1-43.9 [facility] Erythrocyte distribution width (RBC) [Ratio] 16.8 % 11.6-14.6 [facility] Immature granulocytes/100 WBC (Bld) 0.800 % 0.0-0.9 [facility] Comment on above: IG% - Immature Granu locytes (promyelocytes, myelocytes and metamyelocytes) > 1% indicates that a LEFT SHIFT is Present. MCH (RBC) [Entitic mass] 28.5 pg 27.0-32.0 [facility] Nucleated RBC/100 WBC (Bld) [Ratio] 0 % 0-5 [facility] MCHC Auto (RBC) [Mass/Vol]Or dered By: Dr. Quintero on 12-18-2022 MCHC (RBC) [Mass/Vol] 30.7 g/dL 32-36 [facility] Mucus LM Ql (Urine sed)Order ed By: Dr. Quintero on 12-18-2022 Mucus Ql (Urine sed) 0 SEEN /hpf [facility] Nitrite Test strip Ql (U)Ord ered By: Dr. Quintero on 12-18-2022 Nitrite Ql (U) Negative Negative [facility] No Panel InformationOrdered By: Dr. Quintero on 12-18-2022 Blood Gas Liter Flow 3.0 /min [facility] Blood Gas Sample Site R [facility] Blood Gas Specimen Type ART [facility] Blood Gas Total CO2 28 mmol/L [facility] Oxygen Delivery Device Cannula [facility] ART [facility] R [facility] Cannula [facility] 3.0 /min [facility] 28 mmol/L [facility] Estimated Creatinine Clearance Calc 29.15 ml/min [facility] Estimated GFR (MDRD) Amer 28 mL/min >60 [facility] Comment on above: GFR Calc Estimated GFR (MDRD) Non-Af Amer 24 mL/min >60 [facility] Comment on above: Non- GFR Calc Troponin I High Sensitivity 22 pg/mL 3.0-54.0 [facility] Comment on above: Please Note: New Laisha t Units and Gender Specific Reference Ranges. For more information see Policy Stat Procedure [place] High Sensitivity Troponin (TNIH) and attachments. 22 pg/mL 3.0-54.0 [facility] Oxygen (BldA) [Partial press ure]Ordered By: Dr. Quintero on 12-18-2022 Oxygen (Bld) [Partial pressure] 63 mmHG 75-100 [facility] Platelets bldOrdered By: Dr. Quintero on 12-18-2022 Platelets (Bld) [#/Vol] 251 10*3/uL 150-450 [facility] Protein Test strip Ql (U)Ord ered By: Dr. Quintero on 12-18-2022 Protein Ql (U) Negative Negative [facility] Serum or plasma calcium yunior urement (mass/volume)Ordered By: Dr. Quintero on 12-18-2022 Calcium [Mass/Vol] 8.6 mg/dL 8.5-10.1 [facility] Serum or plasma creatinine m easurement (mass/volume)Ordered By: Dr. Quintero on 12-18-2022 Creatinine [Mass/Vol] 2.37 mg/dL 0.55-1.02 [facility] Comment on above: The validity of the calculated GFR & GFRAA in patients over 70 years has not been determined. Clinical correlation is essential. Serum or plasma urea nitroge n measurement (mass/volume)Ordered By: Dr. Quintero on 12-18-2022 Urea nitrogen [Mass/Vol] 80 mg/dL 06-17 [facility] Squamous epithelial cells de tection in urine sediment by light microscopyOrdered By: Dr. Quintero on 12-18-2022 Epithelial cells.squamous LM Ql (Urine sed) 0 SEEN /hpf 5-10 [facility] Thin prep Papanicolaou smear with manual screeningOrdered By: Dr. Quintero on 12-18-2022 Thin prep Papanicolaou smear with manual screening 5 5-15 [facility] Urine blood detectionOrdered By: Dr. Quintero on 12-18-2022 RBC Ql (U) Negative Negative [facility] RBC Ql (U) 0 SEEN /hpf 0-5 [facility] Urine clarityOrdered By: Dr. Quintero on 12-18-2022 Clarity (U) Clear Clear [facility] Urine color determinationOrd ered By: Dr. Quintero on 12-18-2022 Color (U) Yellow Yellow [facility] Urine glucose detectionOrder ed By: Dr. Quintero on 12-18-2022 Glucose Ql (U) 250 mg/dl Normal [facility] Urine leukocyte esterase det ection by dipstickOrdered By: Dr. Quintero on 12-18-2022 Leukocyte esterase Test strip Ql (U) Negative Negative [facility] Urine pHOrdered By: Dr. Cecilia andujar on 12-18-2022 pH (U) 6.0 [pH] 5.0 - 8.0 [facility] Urine sediment bacteria coun t by microscopy (number/high power field)Ordered By: Dr. Quintero on 12-18-2022 Bacteria LM.HPF (Urine sed) [#/Area] 1 /[HPF] None Seen [facility] Urine sediment yeast count b y microscopy (number/high powered field)Ordered By: Dr. Quintero on 12-18-2022 Yeast LM.HPF (Urine sed) [#/Area] RARE /hpf None Seen [facility] Urine specific gravity measu rementOrdered By: Dr. Quintero on 12-18-2022 Specific gravity (U) [Rel density] 1.010 1.002-1.030 [facility] Urobilinogen Auto test strip Ql (U)Ordered By: Dr. Quintero on 12-18-2022 Urobilinogen Ql (U) Normal mg/dl Normal [facility] pH measurementOrdered By: Dr Susan Quintero on 12-18-2022 pH (Unsp spec) 7.30 [pH] 7.35-7.45 [facility] Absolute lymphocyte countOrd ered By: Dr. Kaiser on 12-09-2022 Lymphocytes Auto (Unsp spec) [#/Vol] 2.05 10*3/uL 0.83-4.51 [facility] Basophil percentageOrdered B y: Dr. Kaiser on 12-09-2022 Basophil percentage 3.2 mmol/L 0.4-2.0 [facility] Lactate [Moles/Vol] 3.2 mmol/L 0.4-2.0 [facility] Comment on above: Critical Result(s) C alled at: 13:21:10 12/09/2022 by: Cathy Ladd. Results read back by same. Basophil percentage 232 mg/dL 74-106 [facility] Basophil percentage 137 mmol/L 136-145 [facility] Basophil percentage 4.3 mmol/L 3.5-5.1 [facility] Basophil percentage 101 mmol/L 98-107 [facility] Basophils (Bld) [#/Vol] 13.3 10*3/uL 4.4-11.0 [facility] Basophils (Bld) [#/Vol] 10.4 10*3/uL 2.0-7.7 [facility] Basophils/100 WBC (Bld) 0.8 % 0-1 [facility] Basophils/100 WBC (Bld) 78.2 % 47-70 [facility] Basophils/100 WBC (Bld) 1.4 % 0-5 [facility] Chloride [Moles/Vol] 101 mmol/L 98-107 [facility] Eosinophils/100 WBC (Bld) 1.4 % 0-5 [facility] Glucose [Mass/Vol] 232 mg/dL 74-106 [facility] Comment on above: Glucose result great er than or equal to 200 mg/dLsuggests DIABETES MELLITUS per A.D.A. criteria. Neutrophils (Bld) [#/Vol] 10.4 10*3/uL 2.0-7.7 [facility] Neutrophils/100 WBC (Bld) 78.2 % 47-70 [facility] Potassium [Moles/Vol] 4.3 mmol/L 3.5-5.1 [facility] Sodium [Moles/Vol] 137 mmol/L 136-145 [facility] WBC (Bld) [#/Vol] 13.3 10*3/uL 4.4-11.0 [facility] Blood erythrocytes count (nu mber/volume)Ordered By: Dr. Kaiser on 12-09-2022 RBC (Bld) [#/Vol] 4.25 10*6/uL 4.2-5.4 [facility] Blood hemoglobin measurement (mass/volume)Ordered By: Dr. Kaiser on 12-09-2022 Hemoglobin (Bld) [Mass/Vol] 12.0 g/dL 12.0-15.0 [facility] Blood lymphocytes/100 leukoc ytesOrdered By: Dr. Kaiser on 12-09-2022 Lymphocytes/100 WBC (Bld) 15.5 % 19-41 [facility] Blood monocytes/100 leukocyt esOrdered By: Dr. Kaiser on 12-09-2022 Monocytes/100 WBC (Bld) 2.8 % 0-10 [facility] Blood platelet mean volumeOr dered By: Dr. Kaiser on 12-09-2022 Platelet mean volume (Bld) [Entitic vol] 9.8 fL 6.2-12.0 [facility] Determination of erythrocyte mean corpuscular volume (MCV)Ordered By: Dr. Kaiser on 12-09-2022 MCV (RBC) [Entitic vol] 96.9 fL 81-99 [facility] Hematocrit Auto (Bld) [Volum e fraction]Ordered By: Dr. Kaiser on 12-09-2022 Hematocrit (Bld) [Volume fraction] 41.2 % 37-47 [facility] - Chemistry and C hemistry - challengeOrdered By: Dr. Kaiser on 12-09-2022 CO2 [Moles/Vol] 30.0 mmol/L 21.0-32.0 [facility] Urea nitrogen/Creatinine [Mass ratio] 16.5 mg/mg 10-20 [facility] - Hematology and Cell countsOrdered By: Dr. Kaiser on 12-09-2022 Erythrocyte distribution width (RBC) [Entitic vol] 62.4 fL 35.1-43.9 [facility] Erythrocyte distribution width (RBC) [Ratio] 17.6 % 11.6-14.6 [facility] Immature granulocytes/100 WBC (Bld) 1.300 % 0.0-0.9 [facility] Comment on above: IG% - Immature Granu locytes (promyelocytes, myelocytes and metamyelocytes) > 1% indicates that a LEFT SHIFT is Present. MCH (RBC) [Entitic mass] 28.2 pg 27.0-32.0 [facility] Nucleated RBC/100 WBC (Bld) [Ratio] 0.5 % 0-5 [facility] MCHC Auto (RBC) [Mass/Vol]Or dered By: Dr. Kaiser on 12-09-2022 MCHC (RBC) [Mass/Vol] 29.1 g/dL 32-36 [facility] No Panel InformationOrdered By: Dr. Kaiser on 12-09-2022 Estimated Creatinine Clearance Calc 71.22 ml/min [facility] Estimated GFR (MDRD) Amer 80 mL/min >60 [facility] Comment on above: GFR Calc Estimated GFR (MDRD) Non-Af Amer 66 mL/min >60 [facility] Comment on above: Non- GFR Calc 28.2 pg 27.0-32.0 [facility] 17.6 % 11.6-14.6 [facility] 62.4 fl 35.1-43.9 [facility] 1.300 % 0.0-0.9 [facility] 0.5 % 0-5 [facility] 66 mL/min >60 [facility] 80 mL/min >60 [facility] 71.22 ml/min [facility] 16.5 RATIO 10-20 [facility] 30.0 mmol/L 21.0-32.0 [facility] Platelets bldOrdered By: Dr. Kaiser on 12-09-2022 Platelets (Bld) [#/Vol] 297 10*3/uL 150-450 [facility] Serum or plasma calcium yunior urement (mass/volume)Ordered By: Dr. Kaiser on 12-09-2022 Calcium [Mass/Vol] 9.0 mg/dL 8.5-10.1 [facility] Serum or plasma creatinine m easurement (mass/volume)Ordered By: Dr. Kaiser on 12-09-2022 Creatinine [Mass/Vol] 0.97 mg/dL 0.55-1.02 [facility] Comment on above: The validity of the calculated GFR & GFRAA in patients over 70 years has not been determined. Clinical correlation is essential. Serum or plasma urea nitroge n measurement (mass/volume)Ordered By: Dr. Kaiser on 12-09-2022 Urea nitrogen [Mass/Vol] 16 mg/dL 7-18 [facility] Thin prep Papanicolaou smear with manual screeningOrdered By: Dr. Kaiser on 12-09-2022 Thin prep Papanicolaou smear with manual screening 6 5-15 [facility] Comprehensive metabolic 2000 panelon 11-11-2022 Albumin [Mass/Vol] 3.7 g/dL Low 3.9 - 4.9 g/dL Cl [facility] ALP [Catalytic activity/Vol] 69 U/L 34 - 123 U/L [facility] ALT [Catalytic activity/Vol] 24 U/L 7 - 38 U/L [facility] Anion gap [Moles/Vol] 12 mmol/L 9 - 18 mmol/L [facility] AST [Catalytic activity/Vol] 19 U/L 13 - 35 U/L [facility] Bilirubin [Mass/Vol] 0.2 mg/dL 0.2 - 1.3 mg/dL [facility] Calcium [Mass/Vol] 9.4 mg/dL 8.5 - 10. 2 mg/dL [facility] Chloride [Moles/Vol] 90 mmol/L Low 97 - 105 mmol/L [facility] CO2 [Moles/Vol] 30 mmol/L 22 - 30 mmol/L [facility] Creatinine [Mass/Vol] 1.27 mg/dL High 0.58 - 0.96 mg/dL [facility] Estimated Glomerular Filtration Rate 53 mL/min/1.73m Low >=60 mL/min/1.73m [facility] Glucose [Mass/Vol] 221 mg/dL High 74 - 99 mg/dL [facility] Potassium [Moles/Vol] 4.9 mmol/L 3.7 - 5.1 mmol/L [facility] Protein [Mass/Vol] 6.9 g/dL 6.3 - 8.0 g/dL [facility] Sodium [Moles/Vol] 132 mmol/L Low 136 - 144 mmol/L [facility] Urea nitrogen [Mass/Vol] 44 mg/dL High 7 - 21 mg/d L [facility] metabolic 2000 panelon 11-09-2022 Albumin [Mass/Vol] 3.8 g/dL Low 3.9 - 4.9 g/dL [facility] ALP [Catalytic activity/Vol] 65 U/L 34 - 123 U/L [facility] ALT [Catalytic activity/Vol] 36 U/L 7 - 38 U/L [facility] Anion gap [Moles/Vol] 17 mmol/L 9 - 18 mmol/L [facility] AST [Catalytic activity/Vol] 44 U/L High 13 - 35 U/L [facility] Bilirubin [Mass/Vol] 0.3 mg/dL 0.2 - 1.3 mg/dL [facility] Calcium [Mass/Vol] 9.6 mg/dL 8.5 - 10. 2 mg/dL [facility] Chloride [Moles/Vol] 82 mmol/L Low 97 - 105 mmol/L [facility] CO2 [Moles/Vol] 29 mmol/L 22 - 30 mmol/L [facility] Creatinine [Mass/Vol] 2.32 mg/dL High 0.58 - 0.96 mg/dL [facility] Estimated Glomerular Filtration Rate 26 mL/min/1.73m Low >=60 mL/min/1.73m [facility] Glucose [Mass/Vol] 107 mg/dL High 74 - 99 mg/dL [facility] Potassium [Moles/Vol] 5.6 mmol/L High 3.7 - 5.1 mmol/L [facility] Protein [Mass/Vol] 6.7 g/dL 6.3 - 8.0 g/dL [facility] Sodium [Moles/Vol] 128 mmol/L Low 136 - 144 mmol/L [facility] Urea nitrogen [Mass/Vol] 71 mg/dL High 7 - 21 mg/d L [facility] HbA1c (Bld)on 11-09-2022 Average glucose Estimated from glycated hemoglobin (Bld) [Mass/Vol] 235 mg/dL [facility] HbA1c (Bld) [Mass fraction] 9.8 % High 4.3 - 5.6 % [facility] Absolute lymphocyte countOrd ered By: Dr. Pitts on 11-01-2022 Lymphocytes Auto (Unsp spec) [#/Vol] 2.04 10*3/uL 0.83-4.51 [facility] Basophil percentageOrdered B y: Dr. Pitts on 11-01-2022 Basophils/100 WBC (Bld) 0.3 % 0-1 [facility] Bilirubin [Mass/Vol] 0.40 mg/dL 0.20-1.00 [facility] Comment on above: For patients on eltr ombopag therapy, use of Dimension [place] TBIL is not recommended. Chloride [Moles/Vol] 92 mmol/L 98-107 [facility] Eosinophils/100 WBC (Bld) 0.0 % 0-5 [facility] Glucose [Mass/Vol] 164 mg/dL 74-106 [facility] Comment on above: Fasting Glucose resu lt greater than or equal to 126 mg/dL suggests DIABETES MELLITUS per A.D.A. criteria. Neutrophils (Bld) [#/Vol] 19.5 10*3/uL 2.0-7.7 [facility] Neutrophils/100 WBC (Bld) 84.4 % 47-70 [facility] Potassium [Moles/Vol] 3.8 mmol/L 3.5-5.1 [facility] Protein [Mass/Vol] 7.7 g/dL 6.4-8.2 [facility] Sodium [Moles/Vol] 133 mmol/L 136-145 [facility] WBC (Bld) [#/Vol] 23.2 10*3/uL 4.4-11.0 [facility] Blood erythrocytes count (nu mber/volume)Ordered By: Dr. Pitts on 11-01-2022 RBC (Bld) [#/Vol] 4.55 10*6/uL 4.2-5.4 [facility] Blood hemoglobin measurement (mass/volume)Ordered By: Dr. Pitts on 11-01-2022 Hemoglobin (Bld) [Mass/Vol] 12.8 g/dL 12.0-15.0 [facility] Blood lymphocytes/100 leukoc ytesOrdered By: Dr. Pitts on 11-01-2022 Lymphocytes/100 WBC (Bld) 8.8 % 19-41 [facility] Blood monocytes/100 leukocyt esOrdered By: Dr. Pitts on 11-01-2022 Monocytes/100 WBC (Bld) 5.7 % 0-10 [facility] Blood platelet mean volumeOr dered By: Dr. Pitts on 11-01-2022 Platelet mean volume (Bld) [Entitic vol] 9.5 fL 6.2-12.0 [facility] Determination of erythrocyte mean corpuscular volume (MCV)Ordered By: Dr. Pitts on 11-01-2022 MCV (RBC) [Entitic vol] 91.4 fL 81-99 [facility] Hematocrit Auto (Bld) [Volum e fraction]Ordered By: Dr. Pitts on 11-01-2022 Hematocrit (Bld) [Volume fraction] 41.6 % 37-47 [facility] Influenza virus A and B and SARS-CoV-2 (COVID-19) Ag panel - Upper respiratory specimOrdered By: Dr. Pitts on 11-01-2022 SARS-CoV-2 (COVID-19) RNA SURESH+probe Ql (Resp) [facility] Laboratory - Chemistry and C hemistry - challengeOrdered By: Dr. Pitts on 11-01-2022 ALP [Catalytic activity/Vol] 53 U/L 45-117 [facility] ALT [Catalytic activity/Vol] 28 U/L 13-56 [facility] CO2 [Moles/Vol] 36.0 mmol/L 21.0-32.0 [facility] Globulin (S) [Mass/Vol] 4.4 g/dL 2.2-4.2 [facility] Urea nitrogen/Creatinine [Mass ratio] 24.3 mg/mg 10-20 [facility] Laboratory - Hematology and Cell countsOrdered By: Dr. Pitts on 11-01-2022 Erythrocyte distribution width (RBC) [Entitic vol] 59.3 fL 35.1-43.9 [facility] Erythrocyte distribution width (RBC) [Ratio] 17.5 % 11.6-14.6 [facility] Immature granulocytes/100 WBC (Bld) 0.800 % 0.0-0.9 [facility] Comment on above: IG% - Immature Granu locytes (promyelocytes, myelocytes and metamyelocytes) > 1% indicates that a LEFT SHIFT is Present. MCH (RBC) [Entitic mass] 28.1 pg 27.0-32.0 [facility] Nucleated RBC/100 WBC (Bld) [Ratio] 0 % 0-5 [facility] MCHC Auto (RBC) [Mass/Vol]Or dered By: Dr. Pitts on 11-01-2022 MCHC (RBC) [Mass/Vol] 30.8 g/dL 32-36 [facility] No Panel InformationOrdered By: Dr. Pitts on 11-01-2022 Estimated Creatinine Clearance Calc 43.19 ml/min [facility] Estimated GFR (MDRD) Amer 49 mL/min >60 [facility] Comment on above: GFR Calc Estimated GFR (MDRD) Non-Af Amer 41 mL/min >60 [facility] Comment on above: Non- GFR Calc Troponin I High Sensitivity 31 pg/mL 3.0-54.0 [facility] Comment on above: Please Note: New Laisha t Units and Gender Specific Reference Ranges. For more information see Policy Stat Procedure [place] High Sensitivity Troponin (TNIH) and attachments. Platelets bldOrdered By: Dr. Pitts on 11-01-2022 Platelets (Bld) [#/Vol] 230 10*3/uL 150-450 [facility] RSV Ag EIAOrdered By: Dr. Huerta nnparminder on 11-01-2022 RSV Ag Immune stain Ql (Tiss) [facility] S. pyogenes Ag IF Ql (Throat )Ordered By: Dr. Pitts on 11-01-2022 S. pyogenes Ag IA Ql (Unsp spec) Streptococcus Group A [facility] Serum or plasma albumin yunior urement (mass/volume)Ordered By: Dr. Pitts on 11-01-2022 Albumin [Mass/Vol] 3.3 g/dL 3.2-5.0 [facility] Serum or plasma albumin/glob ulin mass ratioOrdered By: Dr. Pitts on 11-01-2022 Albumin/Globulin [Mass ratio] 0.8 {ratio} 0.9-2.4 [facility] Serum or plasma calcium yunior urement (mass/volume)Ordered By: Dr. Pitts on 11-01-2022 Calcium [Mass/Vol] 9.3 mg/dL 8.5-10.1 [facility] Serum or plasma creatinine m easurement (mass/volume)Ordered By: Dr. Pitts on 11-01-2022 Creatinine [Mass/Vol] 1.48 mg/dL 0.55-1.02 [facility] Comment on above: The validity of the calculated GFR & GFRAA in patients over 70 years has not been determined. Clinical correlation is essential. Serum or plasma urea nitroge n measurement (mass/volume)Ordered By: Dr. Pitts on 11-01-2022 Urea nitrogen [Mass/Vol] 36 mg/dL 7-18 [facility] Thin prep Papanicolaou smear with manual screeningOrdered By: Dr. Pitts on 11-01-2022 Thin prep Papanicolaou smear with manual screening 20 U/L 15-37 [facility] Thin prep Papanicolaou smear with manual screening 5 5-15 [facility] MAGNESIUM BLDon 10-19-2022 Magnesium [Mass/Vol] 2.0 mg/dL 1.7 - 2.3 mg/dL [facility] PHOSPHORUS INORGANICon 10-19 Phosphate [Mass/Vol] 3.4 mg/dL 2.7 - 4.8 mg/dL [facility] TSH BLDon 10-19-2022 TSH Qn 4.130 m[IU]/L 0.270 - 4.200 mIU/L [facility] CBC W Auto Differential pane l (Bld)on 10-18-2022 Basophils (Bld) [#/Vol] 0.05 10*3/uL <0.11 k/uL [facility] Basophils/100 WBC (Bld) 0.6 % [facility] Differential cell count method Nom (Bld) Auto [facility] Eosinophils (Bld) [#/Vol] 0.25 10*3/uL <0.46 k/uL [facility] Eosinophils/100 WBC (Bld) 2.8 % [facility] Erythrocyte distribution width (RBC) [Ratio] 17.0 % High 11.5 - 15.0 % [facility] Hematocrit (Bld) [Volume fraction] 43.7 % 36.0 - 46.0 % [facility] Hemoglobin (Bld) [Mass/Vol] 12.9 g/dL 11.5 - 15.5 g/dL [facility] Immature granulocytes (Bld) [#/Vol] 0.08 10*3/uL <0.10 k/uL [facility] Immature granulocytes/100 WBC (Bld) 0.9 % [facility] Lymphocytes (Bld) [#/Vol] 1.57 10*3/uL 1.00 - 4.00 k/uL [facility] Lymphocytes/100 WBC (Bld) 17.8 % [facility] MCH (RBC) [Entitic mass] 27.7 pg 26.0 - 34.0 pg [facility] MCHC (RBC) [Mass/Vol] 29.5 g/dL Low 30.5 - 36.0 g/dL [facility] MCV (RBC) [Entitic vol] 93.8 fL 80.0 - 100.0 fL [facility] Monocytes (Bld) [#/Vol] 0.38 10*3/uL <0.87 k/uL [facility] Monocytes/100 WBC (Bld) 4.3 % [facility] Neutrophils (Bld) [#/Vol] 6.50 10*3/uL 1.45 - 7.50 k/uL [facility] Neutrophils/100 WBC (Bld) 73.6 % [facility] Nucleated RBC (Bld) [#/Vol] <0.01 k/uL [facility] Nucleated RBC/100 WBC (Bld) [Ratio] 0.0 /100 WBC [facility] Platelet mean volume (Bld) [Entitic vol] 9.8 fL 9.0 - 12.7 fL [facility] Platelets (Bld) [#/Vol] 188 10*3/uL 150 - 400 k /uL [facility] RBC (Bld) [#/Vol] 4.66 10*6/uL 3.90 - 5.2 0 m/uL [facility] WBC (Bld) [#/Vol] 8.83 10*3/uL 3.70 - 11. 00 k/uL [facility] Comprehensive metabolic 2000 panelon 10-18-2022 Albumin [Mass/Vol] 4.2 g/dL 3.9 - 4.9 g/dL [facility] ALP [Catalytic activity/Vol] 68 U/L 34 - 123 U/L [facility] ALT [Catalytic activity/Vol] 24 U/L 7 - 38 U/L [facility] Anion gap [Moles/Vol] 10 mmol/L 9 - 18 mmol/L [facility] AST [Catalytic activity/Vol] 33 U/L 13 - 35 U/L [facility] Bilirubin [Mass/Vol] 0.2 mg/dL 0.2 - 1.3 mg/dL [facility] Calcium [Mass/Vol] 10.2 mg/dL 8.5 - 10. 2 mg/dL [facility] Chloride [Moles/Vol] 91 mmol/L Low 97 - 105 mmol/L [facility] CO2 [Moles/Vol] 39 mmol/L High 22 - 30 mmol/L [facility] Creatinine [Mass/Vol] 0.95 mg/dL 0.58 - 0.96 mg/dL [facility] Estimated Glomerular Filtration Rate 75 mL/min/1.73m >=60 mL/min/1.73m [facility] Glucose [Mass/Vol] 180 mg/dL High 74 - 99 mg/dL [facility] Potassium [Moles/Vol] 4.3 mmol/L 3.7 - 5.1 mmol/L [facility] Protein [Mass/Vol] 7.4 g/dL 6.3 - 8.0 g/dL [facility] Sodium [Moles/Vol] 140 mmol/L 136 - 144 mmol/L [facility] Urea nitrogen [Mass/Vol] 22 mg/dL High 7 - 21 mg/d L [facility] Laboratory - Chemistry and C hemistry - challengeOrdered By: Dr. Oreilly on 10-18-2022 Natriuretic peptide B (Bld) [Mass/Vol] 11.2 pg/mL 0-100 [facility] XR CHEST 2V FRONTAL/LATon [facility] XR Chest PA and Lateralon IMPRESSION: No acute radiographic abnormality. Team Foreman: PHIL Transcribe Date/Time: Oct 18 2022 3:59P Dictated by : SHAWN FLORES MD This examination was interpreted and the report reviewed and electronically signed by: SHAWN FLORES MD on Oct 18 2022 3:59PM [facility] DIVISION OF RADIOLOGY * * *Final [...] soft tissues: Unremarkable. DIVISION OF RADIOLOGY Provider, [facility] - 10/18/2022 * * *Final Report* [...] Unremarkable. IMPRESSION IMPRESSION: No acute radiographic abnormality. Team Foreman: PHIL Transcribe Date/Time: Oct 18 2022 3:59P Dictated by : SHAWN FLORES MD This examination was interpreted and the report reviewed and electronically signed by: SHAWN FLORES MD on Oct 18 2022 3:59PM EST [facility] Radiology Study observation (narrative) [place] [facility] XR Chest PA and LateralOrder ed By: [facility] Provider on 10-18-2022 [facility] Laboratory - Microbiology an d Antimicrobial susceptibilityOrdered By: Dr. Pitts on 09-28-2022 Bacteria identified Cx Nom (Bld) No growth in 5 days. [facility] Microbial respiratory cultur eOrdered By: Dr. Chu on 09-26-2022 Bacteria identified Respiratory culture Nom (Unsp spec) [facility] Culture, urineOrdered By: Dr Susan Pitts on 09-25-2022 Bacteria identified Cx Nom (U) Escherichia coli [facility] Absolute lymphocyte countOrd ered By: Dr. Eubanks on 09-24-2022 Lymphocytes Auto (Unsp spec) [#/Vol] 1.76 10*3/uL 0.83-4.51 [facility] Basophil percentageOrdered B y: Dr. Eubanks on 09-24-2022 Basophils/100 WBC (Bld) 0.4 % 0-1 [facility] Bilirubin [Mass/Vol] 0.30 mg/dL 0.20-1.00 [facility] Comment on above: For patients on eltr ombopag therapy, use of Dimension [place] TBIL is not recommended. Chloride [Moles/Vol] 93 mmol/L 98-107 [facility] Eosinophils/100 WBC (Bld) 0.1 % 0-5 [facility] Glucose [Mass/Vol] 254 mg/dL 74-106 [facility] Comment on above: Glucose result great er than or equal to 200 mg/dLsuggests DIABETES MELLITUS per A.D.A. criteria. Neutrophils (Bld) [#/Vol] 12.3 10*3/uL 2.0-7.7 [facility] Neutrophils/100 WBC (Bld) 81.7 % 47-70 [facility] Potassium [Moles/Vol] 3.5 mmol/L 3.5-5.1 [facility] Protein [Mass/Vol] 7.9 g/dL 6.4-8.2 [facility] Sodium [Moles/Vol] 135 mmol/L 136-145 [facility] WBC (Bld) [#/Vol] 15.0 10*3/uL 4.4-11.0 [facility] Blood erythrocytes count (nu mber/volume)Ordered By: Dr. Eubanks on 09-24-2022 RBC (Bld) [#/Vol] 4.54 10*6/uL 4.2-5.4 [facility] Blood hemoglobin measurement (mass/volume)Ordered By: Dr. Eubanks on 09-24-2022 Hemoglobin (Bld) [Mass/Vol] 12.6 g/dL 12.0-15.0 [facility] Blood lymphocytes/100 leukoc ytesOrdered By: Dr. Eubanks on 09-24-2022 Lymphocytes/100 WBC (Bld) 11.7 % 19-41 [facility] Blood monocytes/100 leukocyt esOrdered By: Dr. Eubanks on 09-24-2022 Monocytes/100 WBC (Bld) 5.0 % 0-10 [facility] Blood platelet mean volumeOr dered By: Dr. Eubanks on 09-24-2022 Platelet mean volume (Bld) [Entitic vol] 9.9 fL 6.2-12.0 [facility] Determination of erythrocyte mean corpuscular volume (MCV)Ordered By: Dr. Eubanks on 09-24-2022 MCV (RBC) [Entitic vol] 91.4 fL 81-99 [facility] Glucose Glucometer (dC) [M ass/Vol]Ordered By: Dr. Eubanks on 09-24-2022 Glucose [Mass/Vol] 216 mg/dL 74-106 [facility] Comment on above: MANAGEMENT OF PATIEN T CARE PER NURSING PROTOCOL Gram stain for investigation of transfusion reactionOrdered By: Dr. Chu on 09-24-2022 Microscopic observation Gram stain Nom (Unsp spec) [facility] Hematocrit Auto (Bld) [Volum e fraction]Ordered By: Dr. Eubanks on 09-24-2022 Hematocrit (Bld) [Volume fraction] 41.5 % 37-47 [facility] Laboratory - Chemistry and C hemistry - challengeOrdered By: Dr. Eubanks on 09-24-2022 ALP [Catalytic activity/Vol] 60 U/L 45-117 [facility] ALT [Catalytic activity/Vol] 24 U/L 13-56 [facility] CO2 [Moles/Vol] 37.0 mmol/L 21.0-32.0 [facility] Globulin (S) [Mass/Vol] 4.5 g/dL 2.2-4.2 [facility] Urea nitrogen/Creatinine [Mass ratio] 31.4 mg/mg 10-20 [facility] Laboratory - Hematology and Cell countsOrdered By: Dr. Eubanks on 09-24-2022 Erythrocyte distribution width (RBC) [Entitic vol] 50.2 fL 35.1-43.9 [facility] Erythrocyte distribution width (RBC) [Ratio] 15.5 % 11.6-14.6 [facility] Immature granulocytes/100 WBC (Bld) 1.100 % 0.0-0.9 [facility] Comment on above: IG% - Immature Granu locytes (promyelocytes, myelocytes and metamyelocytes) > 1% indicates that a LEFT SHIFT is Present. MCH (RBC) [Entitic mass] 27.8 pg 27.0-32.0 [facility] Nucleated RBC/100 WBC (Bld) [Ratio] 0.1 % 0-5 [facility] MCHC Auto (RBC) [Mass/Vol]Or dered By: Dr. Eubanks on 09-24-2022 MCHC (RBC) [Mass/Vol] 30.4 g/dL 32-36 [facility] No Panel InformationOrdered By: Dr. Eubanks on 09-24-2022 Estimated Creatinine Clearance Calc 60.88 ml/min [facility] Estimated GFR (MDRD) Amer 73 mL/min >60 [facility] Comment on above: GFR Calc Estimated GFR (MDRD) Non-Af Amer 60 mL/min >60 [facility] Comment on above: Non- GFR Calc Platelets bldOrdered By: Dr. Eubanks on 09-24-2022 Platelets (Bld) [#/Vol] 273 10*3/uL 150-450 [facility] Serum or plasma albumin yunior urement (mass/volume)Ordered By: Dr. Eubanks on 09-24-2022 Albumin [Mass/Vol] 3.4 g/dL 3.2-5.0 [facility] Serum or plasma albumin/glob ulin mass ratioOrdered By: Dr. Eubanks on 09-24-2022 Albumin/Globulin [Mass ratio] 0.8 {ratio} 0.9-2.4 [facility] Serum or plasma calcium yunior urement (mass/volume)Ordered By: Dr. Eubanks on 09-24-2022 Calcium [Mass/Vol] 9.5 mg/dL 8.5-10.1 [facility] Serum or plasma creatinine m easurement (mass/volume)Ordered By: Dr. Eubanks on 09-24-2022 Creatinine [Mass/Vol] 1.05 mg/dL 0.55-1.02 [facility] Comment on above: The validity of the calculated GFR & GFRAA in patients over 70 years has not been determined. Clinical correlation is essential. Serum or plasma urea nitroge n measurement (mass/volume)Ordered By: Dr. Eubanks on 09-24-2022 Urea nitrogen [Mass/Vol] 33 mg/dL 7-18 [facility] Thin prep Papanicolaou smear with manual screeningOrdered By: Dr. Eubanks on 09-24-2022 Thin prep Papanicolaou smear with manual screening 14 U/L 15-37 [facility] Thin prep Papanicolaou smear with manual screening 5 5-15 [facility] Basophil percentageOrdered B y: Dr. Chu on 09-23-2022 Cholesterol [Mass/Vol] 113 mg/dL <200 [facility] Comment on above: <200 mg/dL Desirable 200-240 mg/dL Borderline >240 mg/dL High Risk Triglyceride [Mass/Vol] 123 mg/dL <199 [facility] Comment on above: The drugs N-Acetylcy steine and Metamizole may falsely depress this assay.Serum Triglycerides Reference Interval Normal <150 mg/dL Borderline high 150 - 199 mg/dL High 200 - 499 mg/dL Very High > or = 500 mg/dL No Panel InformationOrdered By: Dr. Chu on 09-23-2022 Methicillin-Resist S.aureus DNA PCR Positive Negative [facility] Serum or plasma cholesterol in HDL measurement (mass/volume)Ordered By: Dr. Chu on 09-23-2022 Cholesterol in HDL [Mass/Vol] 33 mg/dL >40 [facility] Comment on above: The drugs N-Acetylcy steine and Metamizole may falsely depress this assay. Reference Range HDL <40 mg/dL Low HDL Cholesterol HDL >or= 60 mg/dL High HDL Cholesterol Serum or plasma cholesterol in VLDL measurement (mass/volume)Ordered By: Dr. Chu on 09-23-2022 Cholesterol in VLDL [Mass/Vol] 25 mg/dL 5-40 [facility] Serum or plasma low density lipoprotein (LDL) cholesterol measurement (mass/volume)Ordered By: Dr. Chu on 09-23-2022 Cholesterol in LDL [Mass/Vol] 55 mg/dL 0-130 [facility] Whole blood hemoglobin A1c/t otal hemoglobin ratio (mass fraction)Ordered By: Dr. Eubanks on 09-23-2022 HbA1c (Bld) [Mass fraction] 8.9 % 3.8-5.6 [facility] Comment on above: Normal < 5.7 % Predi abetic 5.7 - 6.4 % Diabetic >or= 6.5 % Please note range changes. Absolute lymphocyte counton 09-22-2022 Lymphocytes Auto (Unsp spec) [#/Vol] 2.39 10*3/uL 0.83-4.51 [facility] Work Phone: Assessment of wrist artery p atency prior to arterial punctureOrdered By: Dr. Chu on 09-22-2022 Arterial patency Wrist artery --pre arterial puncture Positive [facility] Base excessOrdered By: Dr. Juan José enciso on 09-22-2022 Base excess Calc (BldV) [Moles/Vol] 8 mmol/L -2-2 [facility] Basophil percentageOrdered B y: Dr. Pitts on 09-22-2022 Lactate [Moles/Vol] 2.5 mmol/L 0.4-2.0 [facility] Comment on above: Critical Result(s) C alled at: 22:04:36 09/22/2022 to [facility] by: sydnee feliciano. Results read back by same. Basophil percentage 10-25 SEEN /hpf 0-5 [facility] Basophil percentageOrdered B y: Dr. Chu on 09-22-2022 Basophil percentage 34.2 mmol/L 22-26 [facility] Basophils/100 WBC (Bld) 75 % 95-99 [facility] Basophil percentage 3.0 mg/dL 2.5-4.9 [facility] Basophil percentageon 2021 Lactate [Moles/Vol] 3.0 mmol/L 0.4-2.0 [facility] Work Phone: Basophils/100 WBC (Bld) 0.6 % 0-1 [facility] Work Phone: Chloride [Moles/Vol] 92 mmol/L 98-107 [facility] Work Phone: Eosinophils/100 WBC (Bld) 1.7 % 0-5 [facility] Work Phone: Glucose [Mass/Vol] 307 mg/dL 74-106 [facility] Work Phone: Comment on above: Glucose result great er than or equal to 200 mg/dLsuggests DIABETES MELLITUS per A.D.A. criteria. Neutrophils (Bld) [#/Vol] 11.3 10*3/uL 2.0-7.7 [facility] Work Phone: Neutrophils/100 WBC (Bld) 75.3 % 47-70 [facility] Work Phone: Potassium [Moles/Vol] 4.1 mmol/L 3.5-5.1 [facility] Work Phone: Sodium [Moles/Vol] 135 mmol/L 136-145 [facility] Work Phone: WBC (Bld) [#/Vol] 15.0 10*3/uL 4.4-11.0 [facility] Work Phone: Bilirubin Test strip Ql (U)O rdered By: Dr. Pitts on 09-22-2022 Bilirubin Ql (U) Negative Negative [facility] Blood erythrocytes count (nu mber/volume)on 09-22-2022 RBC (Bld) [#/Vol] 4.47 10*6/uL 4.2-5.4 [facility] Work Phone: Blood hemoglobin measurement (mass/volume)on 09-22-2022 Hemoglobin (Bld) [Mass/Vol] 12.4 g/dL 12.0-15.0 [facility] Work Phone: Blood lymphocytes/100 leukoc yteson 09-22-2022 Lymphocytes/100 WBC (Bld) 16.0 % 19-41 [facility] Work Phone: Blood monocytes/100 leukocyt eson 09-22-2022 Monocytes/100 WBC (Bld) 5.1 % 0-10 [facility] Work Phone: Blood platelet mean volumeon 09-22-2022 Platelet mean volume (Bld) [Entitic vol] 9.9 fL 6.2-12.0 [facility] Work Phone: CO2 (BldA) [Partial pressure ]Ordered By: Dr. Chu on 09-22-2022 CO2 (Bld) [Partial pressure] 65.9 mm[Hg] 35-45 [facility] Determination of erythrocyte mean corpuscular volume (MCV)on 09-22-2022 MCV (RBC) [Entitic vol] 94.4 fL 81-99 [facility] Work Phone: Direct bilirubinOrdered By: Dr. Chu on 09-22-2022 Bilirubin.direct [Mass/Vol] 0.15 mg/dL 0.00-0.30 [facility] Hematocrit Auto (Bld) [Volum e fraction]on 09-22-2022 Hematocrit (Bld) [Volume fraction] 42.2 % 37-47 [facility] Work Phone: INR in Blood by Coagulation assayOrdered By: Dr. Pitts on 09-22-2022 INR Coag (Bld) [Relative time] 1.2 {INR} [facility] Ketones Test strip Ql (U)Ord ered By: Dr. Pitts on 09-22-2022 Ketones Ql (U) Negative Negative [facility] Laboratory - Chemistry and C hemistry - challengeOrdered By: Dr. Chu on 09-22-2022 Magnesium [Mass/Vol] 1.8 mg/dL 1.6-2.6 [facility] Laboratory - Chemistry and C hemistry - challengeon 09-22-2022 CO2 [Moles/Vol] 34.0 mmol/L 21.0-32.0 [facility] Work Phone: Urea nitrogen/Creatinine [Mass ratio] 22.5 mg/mg 10-20 [facility] Work Phone: Laboratory - Chemistry and C hemistry - challengeOrdered By: Dr. Pitts on 09-22-2022 Natriuretic peptide B (Bld) [Mass/Vol] 5.2 pg/mL 0-100 [facility] Laboratory - CoagulationOrde red By: Dr. Pitts on 09-22-2022 PT Coag (PPP) [Time] 15.3 s 11.7-14.9 [facility] Laboratory - Hematology and Cell countson 09-22-2022 Erythrocyte distribution width (RBC) [Entitic vol] 53.4 fL 35.1-43.9 [facility] Work Phone: Erythrocyte distribution width (RBC) [Ratio] 15.9 % 11.6-14.6 [facility] Work Phone: Immature granulocytes/100 WBC (Bld) 1.300 % 0.0-0.9 [facility] Work Phone: Comment on above: IG% - Immature Granu locytes (promyelocytes, myelocytes and metamyelocytes) > 1% indicates that a LEFT SHIFT is Present. MCH (RBC) [Entitic mass] 27.7 pg 27.0-32.0 [facility] Work Phone: Nucleated RBC/100 WBC (Bld) [Ratio] 0.3 % 0-5 [facility] Work Phone: MCHC Auto (RBC) [Mass/Vol]on 09-22-2022 MCHC (RBC) [Mass/Vol] 29.4 g/dL 32-36 [facility] Work Phone: Mucus LM Ql (Urine sed)Order ed By: Dr. Pitts on 09-22-2022 Mucus Ql (Urine sed) 0 SEEN /hpf [facility] Nitrite Test strip Ql (U)Ord ered By: Dr. Pitts on 09-22-2022 Nitrite Ql (U) Positive Negative [facility] No Panel InformationOrdered By: Dr. Chu on 09-22-2022 Blood Gas Oxygen Percent 50 [facility] Blood Gas Sample Site L Radial [facility] Total CO2 36 mmol/L [facility] Oxygen Delivery Device Venti Mask [facility] Troponin I High Sensitivity 25 pg/mL 3.0-54.0 [facility] Comment on above: Please Note: New Laisha t Units and Gender Specific Reference Ranges. For more information see Policy Stat Procedure [place] High Sensitivity Troponin (TNIH) and attachments. No Panel Informationon 09-22 Estimated Creatinine Clearance Calc 46.32 ml/min [facility] Work Phone: Estimated GFR (MDRD) Amer 53 mL/min >60 [facility] Work Phone: Comment on above: GFR Calc Estimated GFR (MDRD) Non-Af Amer 44 mL/min >60 [facility] Work Phone: Comment on above: Non- GFR Calc Oxygen (BldA) [Partial press ure]Ordered By: Dr. Chu on 09-22-2022 Oxygen (Bld) [Partial pressure] 44 mmHG 75-100 [facility] Platelets bldon 09-22-2022 Platelets (Bld) [#/Vol] 305 10*3/uL 150-450 [facility] Work Phone: Protein Test strip Ql (U)Ord ered By: Dr. Pitts on 09-22-2022 Protein Ql (U) Negative Negative [facility] Serum or plasma calcium yunior urement (mass/volume)on 09-22-2022 Calcium [Mass/Vol] 8.8 mg/dL 8.5-10.1 [facility] Work Phone: Serum or plasma creatinine m easurement (mass/volume)on 09-22-2022 Creatinine [Mass/Vol] 1.38 mg/dL 0.55-1.02 [facility] Work Phone: Comment on above: The validity of the calculated GFR & GFRAA in patients over 70 years has not been determined. Clinical correlation is essential. Serum or plasma urea nitroge n measurement (mass/volume)on 09-22-2022 Urea nitrogen [Mass/Vol] 31 mg/dL 7-18 [facility] Work Phone: Squamous epithelial cells de tection in urine sediment by light microscopyOrdered By: Dr. Pitts on 09-22-2022 Epithelial cells.squamous LM Ql (Urine sed) 0 SEEN /hpf 5-10 [facility] Thin prep Papanicolaou smear with manual screeningon 09-22-2022 Thin prep Papanicolaou smear with manual screening 9 5-15 [facility] Work Phone: Urine blood detectionOrdered By: Dr. Pitts on 09-22-2022 RBC Ql (U) Negative Negative [facility] RBC Ql (U) 0 SEEN /hpf 0-5 [facility] Urine clarityOrdered By: Dr. Pitts on 09-22-2022 Clarity (U) Clear Clear [facility] Urine color determinationOrd ered By: Dr. Pitts on 09-22-2022 Color (U) Straw Yellow [facility] Urine glucose detectionOrder ed By: Dr. Pitts on 09-22-2022 Glucose Ql (U) 1000 mg/dl Normal [facility] Urine leukocyte esterase det ection by dipstickOrdered By: Dr. Pitts on 09-22-2022 Leukocyte esterase Test strip Ql (U) 25 /ul Negative [facility] Urine pHOrdered By: Dr. López zurita on 09-22-2022 pH (U) 6.0 [pH] 5.0 - 8.0 [facility] Urine sediment bacteria coun t by microscopy (number/high power field)Ordered By: Dr. Pitts on 09-22-2022 Bacteria LM.HPF (Urine sed) [#/Area] 3 /[HPF] None Seen [facility] Urine specific gravity measu rementOrdered By: Dr. Pitts on 09-22-2022 Specific gravity (U) [Rel density] 1.010 1.002-1.030 [facility] Urobilinogen Auto test strip Ql (U)Ordered By: Dr. Pitts on 09-22-2022 Urobilinogen Ql (U) Normal mg/dl Normal [facility] pH measurementOrdered By: Dr Susan Chu on 09-22-2022 pH (Unsp spec) 7.32 [pH] 7.35-7.45 [facility] XR Chest PA and Lateralon IMPRESSION: Slight prominence of the bilateral pulmonary markings. Team Foreman: PSCB Transcribe Date/Time: Jul 09 2022 12:10P [...] Unremarkable. [id number] N OF RADIOLOGY Provider, [facility] - 07/09/2022 * * *Final Report* * [...] Slight prominence of the bilateral pulmonary markings. Team Foreman: PHIL Transcribe Date/Time: Jul 09 2022 12:10P Dictated by : ROCKY MAC MD This examination was interpreted and the report reviewed and electronically signed by: ROCKY MAC MD on Jul 09 2022 12:10PM EST [facility] Radiology Study observation (narrative) [facility] XR Chest PA and LateralOrder ed By: [facility] Provider on 07-09-2022 [facility] Absolute lymphocyte counton 03-31-2022 Lymphocytes Auto (Unsp spec) [#/Vol] 3.25 10*3/uL 0.83-4.51 [facility] Work Phone: Basophil percentageon 2021 Basophils/100 WBC (Bld) 0.7 % 0-1 [facility] Work Phone: Chloride [Moles/Vol] 93 mmol/L 98-107 [facility] Work Phone: Eosinophils/100 WBC (Bld) 2.5 % 0-5 [facility] Work Phone: Glucose [Mass/Vol] 226 mg/dL 74-106 [facility] Work Phone: Comment on above: Glucose result great er than or equal to 200 mg/dLsuggests DIABETES MELLITUS per A.D.A. criteria. Neutrophils (Bld) [#/Vol] 8.0 10*3/uL 2.0-7.7 [facility] Work Phone: Neutrophils/100 WBC (Bld) 65.1 % 47-70 [facility] Work Phone: Potassium [Moles/Vol] 3.7 mmol/L 3.5-5.1 [facility] Work Phone: Sodium [Moles/Vol] 134 mmol/L 136-145 [facility] Work Phone: WBC (Bld) [#/Vol] 12.2 10*3/uL 4.4-11.0 [facility] Work Phone: Blood erythrocytes count (nu mber/volume)on 03-31-2022 RBC (Bld) [#/Vol] 3.91 10*6/uL 4.2-5.4 [facility] Work Phone: Blood hemoglobin measurement (mass/volume)on 03-31-2022 Hemoglobin (Bld) [Mass/Vol] 11.7 g/dL 12.0-15.0 [facility] Work Phone: Blood lymphocytes/100 leukoc yteson 03-31-2022 Lymphocytes/100 WBC (Bld) 26.6 % 19-41 [facility] Work Phone: Blood monocytes/100 leukocyt eson 03-31-2022 Monocytes/100 WBC (Bld) 4.2 % 0-10 [facility] Work Phone: Blood platelet mean volumeon 03-31-2022 Platelet mean volume (Bld) [Entitic vol] 10.4 fL 6.2-12.0 [facility] Work Phone: Determination of erythrocyte mean corpuscular volume (MCV)on 03-31-2022 MCV (RBC) [Entitic vol] 94.9 fL 81-99 [facility] Work Phone: Hematocrit Auto (Bld) [Volum e fraction]on 03-31-2022 Hematocrit (Bld) [Volume fraction] 37.1 % 37-47 [facility] Work Phone: Laboratory - Chemistry and C hemistry - challengeon 03-31-2022 CO2 [Moles/Vol] 35.0 mmol/L 21.0-32.0 [facility] Work Phone: Natriuretic peptide B (Bld) [Mass/Vol] 5.9 pg/mL 0-100 [facility] Work Phone: Urea nitrogen/Creatinine [Mass ratio] 16.5 mg/mg 10-20 [facility] Work Phone: Laboratory - Hematology and Cell countson 03-31-2022 Erythrocyte distribution width (RBC) [Entitic vol] 50.9 fL 35.1-43.9 [facility] Work Phone: Erythrocyte distribution width (RBC) [Ratio] 14.9 % 11.6-14.6 [facility] Work Phone: Immature granulocytes/100 WBC (Bld) 0.900 % 0.0-0.9 [facility] Work Phone: Comment on above: IG% - Immature Granu locytes (promyelocytes, myelocytes and metamyelocytes) > 1% indicates that a LEFT SHIFT is Present. MCH (RBC) [Entitic mass] 29.9 pg 27.0-32.0 [facility] Work Phone: Nucleated RBC/100 WBC (Bld) [Ratio] 0 % 0-5 [facility] Work Phone: MCHC Auto (RBC) [Mass/Vol]on 03-31-2022 MCHC (RBC) [Mass/Vol] 31.5 g/dL 32-36 [facility] Work Phone: No Panel Informationon 03-31 Estimated Creatinine Clearance Calc 59.27 ml/min [facility] Work Phone: Estimated GFR (MDRD) Amer 70 mL/min >60 [facility] Work Phone: Comment on above: GFR Calc Estimated GFR (MDRD) Non-Af Amer 58 mL/min >60 [facility] Work Phone: Comment on above: Non- GFR Calc Troponin I High Sensitivity 19 pg/mL 3.0-54.0 [facility] Work Phone: Comment on above: Please Note: New Laisha t Units and Gender Specific Reference Ranges. For more information see Policy Stat Procedure [place] High Sensitivity Troponin (TNIH) and attachments. Platelets bldon 03-31-2022 Platelets (Bld) [#/Vol] 302 10*3/uL 150-450 [facility] Work Phone: Serum or plasma calcium yunior urement (mass/volume)on 03-31-2022 Calcium [Mass/Vol] 9.3 mg/dL 8.5-10.1 [facility] Work Phone: Serum or plasma creatinine m easurement (mass/volume)on 03-31-2022 Creatinine [Mass/Vol] 1.09 mg/dL 0.55-1.02 [facility] Work Phone: Comment on above: The validity of the calculated GFR & GFRAA in patients over 70 years has not been determined. Clinical correlation is essential. Serum or plasma urea nitroge n measurement (mass/volume)on 03-31-2022 Urea nitrogen [Mass/Vol] 18 mg/dL 7-18 [facility] Work Phone: Thin prep Papanicolaou smear with manual screeningon 03-31-2022 Thin prep Papanicolaou smear with manual screening 6 5-15 [facility] Work Phone: UA DIP, URINE (POC)on 2021 BILIRUBIN UA (POCT) Negative Negative [facility] CLARITY UA (POCT) Clear [facility] COLOR UA (POCT) Yellow [facility] GLUCOSE UA (POCT) 500 mg/dL Abnormal Negative mg/dL [facility] HEMOGLOBIN/BLOOD UA (POCT) Negative Negative [facility] KETONE UA (POCT) Negative Negative mg/dL [facility] LEUKOCYTES UA (POCT) Negative Negative [facility] NITRITE UA (POCT) Negative Negative [facility] PH UA (POCT) 7.0 4.5 - 8.0 [facility] Protein Ql (U) Negative Negative mg/dL [facility] SPECIFIC GRAVITY UA (POCT) 1.020 1.005 - 1.030 [facility] UROBILINOGEN UA (POCT) 0.2 E.U./dL Normal E.U./ dL [facility] Absolute lymphocyte counton 01-18-2022 Lymphocytes Auto (Unsp spec) [#/Vol] 2.12 10*3/uL 0.83-4.51 [facility] Work Phone: Basophil percentageon 2021 Basophils/100 WBC (Bld) 0.5 % 0-1 [facility] Work Phone: Chloride [Moles/Vol] 93 mmol/L 98-107 [facility] Work [facility]: Eosinophils/100 WBC (Bld) 0.1 % 0-5 [facility] Work Phone: Glucose [Mass/Vol] 309 mg/dL 74-106 [facility] Work Phone: Comment on above: Glucose result great er than or equal to 200 mg/dLsuggests DIABETES MELLITUS per A.D.A. criteria. Neutrophils (Bld) [#/Vol] 10.4 10*3/uL 2.0-7.7 [facility] Work Phone: Neutrophils/100 WBC (Bld) 78.2 % 47-70 [facility] Work Phone: Potassium [Moles/Vol] 4.1 mmol/L 3.5-5.1 [facility] Work Phone: Sodium [Moles/Vol] 133 mmol/L 136-145 [facility] Work Phone: WBC (Bld) [#/Vol] 13.3 10*3/uL 4.4-11.0 [facility] Work Phone: [phone] Blood erythrocytes count (nu mber/volume)on 01-18-2022 RBC (Bld) [#/Vol] 4.23 10*6/uL 4.2-5.4 [facility] Work Phone: Blood hemoglobin measurement (mass/volume)on 01-18-2022 Hemoglobin (Bld) [Mass/Vol] 12.5 g/dL 12.0-15.0 [facility] Work Phone: Blood lymphocytes/100 leukoc yteson 01-18-2022 Lymphocytes/100 WBC (Bld) 16.0 % 19-41 [facility] Work Phone: Blood monocytes/100 leukocyt eson 01-18-2022 Monocytes/100 WBC (Bld) 4.7 % 0-10 [facility] Work Phone: Blood platelet mean volumeon 01-18-2022 Platelet mean volume (Bld) [Entitic vol] 10.1 fL 6.2-12.0 [facility] Work Phone: Determination of erythrocyte mean corpuscular volume (MCV)on 01-18-2022 MCV (RBC) [Entitic vol] 92.7 fL 81-99 [facility] Work Phone: Glucose Glucometer (BldC) [M ass/Vol]on 01-18-2022 Glucose [Mass/Vol] 282 mg/dL 70-110 [facility] Work Phone: Comment on above: MANAGEMENT OF PATIEN T CARE PER NURSING PROTOCOL Hematocrit Auto (Bld) [Volum e fraction]on 01-18-2022 Hematocrit (Bld) [Volume fraction] 39.2 % 37-47 [facility] Work Phone: Laboratory - Chemistry and C hemistry - challengeon 01-18-2022 CO2 [Moles/Vol] 35.0 mmol/L 21.0-32.0 [facility] Work Phone: Urea nitrogen/Creatinine [Mass ratio] 38.4 mg/mg 10-20 [facility] Work Phone: Laboratory - Hematology and Cell countson 01-18-2022 Erythrocyte distribution width (RBC) [Entitic vol] 45.5 fL 35.1-43.9 [facility] Work Phone: Erythrocyte distribution width (RBC) [Ratio] 13.5 % 11.6-14.6 [facility] Work Phone: Immature granulocytes/100 WBC (Bld) 0.500 % 0.0-0.9 [facility] Work Phone: Comment on above: IG% - Immature Granu locytes (promyelocytes, myelocytes and metamyelocytes) > 1% indicates that a LEFT SHIFT is Present. MCH (RBC) [Entitic mass] 29.6 pg 27.0-32.0 [facility] Work Phone: Nucleated RBC/100 WBC (Bld) [Ratio] 0 % 0-5 [facility] Work Phone: MCHC Auto (RBC) [Mass/Vol]on 01-18-2022 MCHC (RBC) [Mass/Vol] 31.9 g/dL 32-36 [facility] Work Phone: No Panel Informationon 01-18 Estimated Creatinine Clearance Calc 65.25 ml/min [facility] Work Phone: Estimated GFR (MDRD) Amer 78 mL/min >60 [facility] Work Phone: Comment on above: GFR Calc Estimated GFR (MDRD) Non-Af Amer 65 mL/min >60 [facility] Work Phone: Comment on above: Non- GFR Calc Platelets bldon 01-18-2022 Platelets (Bld) [#/Vol] 320 10*3/uL 150-450 [facility] Work Phone: Serum or plasma calcium yunior urement (mass/volume)on 01-18-2022 Calcium [Mass/Vol] 10.2 mg/dL 8.5-10.1 [facility] Work Phone: Serum or plasma creatinine m easurement (mass/volume)on 01-18-2022 Creatinine [Mass/Vol] 0.99 mg/dL 0.55-1.02 [facility] Work Phone: Comment on above: The validity of the calculated GFR & GFRAA in patients over 70 years has not been determined. Clinical correlation is essential. Serum or plasma urea nitroge n measurement (mass/volume)on 01-18-2022 Urea nitrogen [Mass/Vol] 38 mg/dL -18 [facility] Work Phone: Thin prep Papanicolaou smear with manual screeningon 01-18-2022 Thin prep Papanicolaou smear with manual screening 5 5-15 [facility] Work Phone: Laboratory - Microbiology an d Antimicrobial susceptibilityon 01-17-2022 Bacteria identified Cx Nom (Bld) No growth in 5 days. [facility] Work Phone: Basophil percentageon 2021 Cholesterol [Mass/Vol] 116 mg/dL <200 [facility] Work Phone: Comment on above: <200 mg/dL Desirable 200-240 mg/dL Borderline >240 mg/dL High Risk Triglyceride [Mass/Vol] 95 mg/dL [facility] Work Phone: Comment on above: The drugs N-Acetylcy steine and Metamizole may falsely depress this assay.Serum Triglycerides Reference Interval Normal <150 mg/dL Borderline high 150 - 199 mg/dL High 200 - 499 mg/dL Very High > or = 500 mg/dL Gram stain for investigation of transfusion reactionon 01-16-2022 Microscopic observation Gram stain Nom (Unsp spec) [facility] Work Phone: No Panel Informationon 01-16 Methicillin-Resist S.aureus DNA PCR Negative Negative [facility] Work Phone: Serum or plasma cholesterol in HDL measurement (mass/volume)on 01-16-2022 Cholesterol in HDL [Mass/Vol] 41 mg/dL [facility] Work Phone: Comment on above: The drugs N-Acetylcy steine and Metamizole may falsely depress this assay. Reference Range HDL <40 mg/dL Low HDL Cholesterol HDL >or= 60 mg/dL High HDL Cholesterol Serum or plasma cholesterol in VLDL measurement (mass/volume)on 01-16-2022 Cholesterol in VLDL [Mass/Vol] 19 mg/dL 5-40 [facility] Work Phone: Serum or plasma low density lipoprotein (LDL) cholesterol measurement (mass/volume)on 01-16-2022 Cholesterol in LDL [Mass/Vol] 56 mg/dL 0-130 [facility] Work Phone: Whole blood hemoglobin A1c/t otal hemoglobin ratio (mass fraction)on 01-16-2022 HbA1c (Bld) [Mass fraction] 9.5 % 3.8-5.6 [facility] Work Phone: Comment on above: Normal < 5.7 % Predi abetic 5.7 - 6.4 % Diabetic >or= 6.5 % Please note range changes. Base excesson 01-15-2022 Base excess Calc (BldV) [Moles/Vol] 7 mmol/L -2-2 [facility] Work Phone: Basophil percentageon 2021 Basophil percentage 33.8 mmol/L 22-26 [facility] Work Phone: Basophils/100 WBC (Bld) 88 % 95-99 [facility] Work Phone: Lactate [Moles/Vol] 1.7 mmol/L 0.4-2.0 [facility] Work Phone: Bilirubin [Mass/Vol] 0.40 mg/dL 0.20-1.00 [facility] Work Phone: Comment on above: For patients on eltr ombopag therapy, use of Dimension [place] TBIL is not recommended. Protein [Mass/Vol] 7.5 g/dL 6.4-8.2 [facility] Work Phone: CO2 (BldA) [Partial pressure ]on 01-15-2022 CO2 (Bld) [Partial pressure] 75.1 mm[Hg] 35-45 [facility] Work Phone: Laboratory - Chemistry and C hemistry - challengeon 01-15-2022 ALP [Catalytic activity/Vol] 85 U/L 45-117 [facility] Work Phone: ALT [Catalytic activity/Vol] 25 U/L 13-56 [facility] Work Phone: Globulin (S) [Mass/Vol] 4.4 g/dL 2.2-4.2 [facility] Work Phone: Natriuretic peptide B (Bld) [Mass/Vol] 22.1 pg/mL 0-100 [facility] Work Phone: No Panel Informationon 01-15 Streptococcus pneumoniae Antigen (M [facility] Work Phone: Troponin I High Sensitivity 26 pg/mL 3.0-54.0 [facility] Work Phone: Comment on above: Please Note: New Laisha t Units and Gender Specific Reference Ranges. For more information see Policy Stat Procedure [place] High Sensitivity Troponin (TNIH) and attachments. Bld Gas Crit Called To/Read Back By Yes [facility] Work Phone: Blood Gas Liter Flow 10.0 /min [facility] Work Phone: Blood Gas Notified Whom Dr Chu [facility] Work Phone: Blood Gas Sample Site R Brach [facility] Work Phone: Blood Gas Specimen Type ART [facility] Work Phone: Blood Gas Total CO2 36 mmol/L [facility] Work Phone: Oxygen Delivery Device [facility]NC [facility] Work Phone: Oxygen (BldA) [Partial press ure]on 01-15-2022 Oxygen (Bld) [Partial pressure] 66 mmHG 75-100 [facility] Work Phone: Serum or plasma albumin yunior urement (mass/volume)on 01-15-2022 Albumin [Mass/Vol] 3.1 g/dL 3.2-5.0 [facility] Work Phone: Serum or plasma albumin/glob ulin mass ratioon 01-15-2022 Albumin/Globulin [Mass ratio] 0.7 {ratio} 0.9-2.4 [facility] Work Phone: Thin prep Papanicolaou smear with manual screeningon 01-15-2022 Thin prep Papanicolaou smear with manual screening 20 U/L [facility] Work Phone: pH measurementon 01-15-2022 pH (Unsp spec) 7.26 [pH] 7.35-7.45 [facility] Work Phone: XR Chest PA and Lateralon IMPRESSION: Pulmonary vascular congestion/edema. No pleural effusion. An infectious process is not excluded. Team Foreman: HPIL Transcribe Date/Time: Aug 01 2021 3:44P Dictated by : ROC PRICE MD This examination was interpreted and the report reviewed and electronically signed by: ROC PRICE MD on Aug 01 2021 3:45PM [facility] DIVISION OF RADIOLOGY * * *Final [...] acute osseous abnormality. DIVISION OF RADIOLOGY Provider, [facility] - 08/01/2021 * * *Final Report* * [...] effusion. An infectious process is not excluded. Team Foreman: PHIL Transcribe Date/Time: Aug 01 2021 3:44P Dictated by : ROC PRICE MD This examination was interpreted and the report reviewed and electronically signed by: ROC PRICE MD on Aug 01 2021 3:45PM EST [facility] Radiology Study observation (narrative) Denita wilson [facility] XR Chest PA and LateralOrder ed By: [facility] Provider on 08-01-2021 [facility] Culture, urine Bacteria identified Cx Nom (U) Escherichia coli [facility] Work Phone: Gram stain for investigation of transfusion reaction Microscopic observation Gram stain Nom (Unsp spec) [facility] Work Phone: Influenza virus A and B and SARS-CoV-2 (COVID-19) Ag panel - Upper respiratory specim SARS-CoV-2 (COVID-19) RNA SURESH+probe Ql (Resp) [facility] Work Phone: Laboratory - Microbiology an d Antimicrobial susceptibility Bacteria identified Cx Nom (Bld) No growth in 5 days. [facility] Work Phone: Microbial respiratory cultur e Bacteria identified Respiratory culture Nom (Unsp spec) [facility] Work Phone: No Panel Information SARS-CoV-2 & FLU Antigen (Rapid) [facility] Work Phone: RSV Ag EIA RSV Ag Immune stain Ql (Tiss) [facility] Work Phone: S. pyogenes Ag IF Ql (Throat ) S. pyogenes Ag IA Ql (Unsp spec) Streptococcus Group A [facility] Work Phone: Vital Signs Date Time Vital Sign Value Performing Clinician Facility 08-19-2025 10:45-0400 Body temperature 97.8 [degF] Delmy Solorzano MD Work Phone: [facility] 08-19-2025 10:45-0400 Diastolic blood pressure 76 mm[Hg] Delmy Solorzano MD Work Phone: [facility] 08-19-2025 10:45-0400 Heart rate 91 /min Delmy Solorzano MD Work Phone: [facility] 08-19-2025 10:45-0400 Inhaled oxygen flow rate 5 L/min Delmy Solorzano MD Work Phone: [facility] 08-19-2025 10:45-0400 Respiratory rate 20 /min Delmy Solorzano MD Work Phone: [facility] 08-19-2025 10:45-0400 SaO2% (BldA) [Mass fraction] 97 % Delmy Solorzano MD Work Phone: [facility] 08-19-2025 10:45-0400 Systolic blood pressure 150 mm[Hg] Delmy Solorzano MD Work Phone: [facility] 08-19-2025 06:00-0400 Body mass index (BMI) [Ratio] 66.7 kg/m2 Delmy Solorzano MD Work Phone: [facility] 08-19-2025 06:00-0400 Body weight 181.7 kg Delmy Solorzano MD Work Phone: [facility] 08-19-2025 03:30-0400 Inhaled oxygen concentration 30 % Delmy Solorzano MD Work Phone: [facility] 08-17-2025 14:30-0400 Body height 165.1 cm Delmy Solorzano MD Work Phone: [facility] 08-16-2025 21:00-0400 Body temperature 98.4 [degF] Delmy Solorzano MD Work Phone: [facility] 08-16-2025 21:00-0400 Diastolic blood pressure 71 mm[Hg] Delmy Solorzano MD Work Phone: [facility] 08-16-2025 21:00-0400 Heart rate 88 /min Delmy Solorzano MD Work Phone: [facility] 08-16-2025 21:00-0400 Inhaled oxygen flow rate 5 L/min Delmy Solorzano MD Work Phone: [facility] 08-16-2025 21:00-0400 Respiratory rate 19 /min Delmy Solorzano MD Work Phone: [facility] 08-16-2025 21:00-0400 SaO2% (BldA) [Mass fraction] 97 % Delmy Solorzano MD Work Phone: [facility] 08-16-2025 21:00-0400 Systolic blood pressure 146 mm[Hg] Delmy Solorzano MD Work Phone: [facility] 08-16-2025 18:39-0400 Body mass index (BMI) [Ratio] 67.3 kg/m2 Delmy Solorzano MD Work Phone: [facility] 08-16-2025 18:39-0400 Body weight 185.5 kg Delmy Solorzano MD Work Phone: [facility] 08-16-2025 18:21-0400 Body height 166.37 cm Delmy Solorzano MD Work Phone: [facility] 03-28-2024 14:00-0400 Body temperature 96.9 [degF] [facility] 03-28-2024 14:00-0400 Diastolic blood pressure 61 mm[Hg] [facility] 03-28-2024 14:00-0400 Heart rate 89 /min [facility] 03-28-2024 14:00-0400 Respiratory rate 119 /min [facility] 03-28-2024 14:00-0400 SaO2% (BldA) [Mass fraction] 96 % [facility] 03-28-2024 14:00-0400 Systolic blood pressure 111 mm[Hg] [facility] 03-28-2024 00:18-0400 Inhaled oxygen flow rate 4 L/min [facility] 03-27-2024 22:21-0400 Body mass index (BMI) [Ratio] 59.6 kg/m2 [facility] 03-27-2024 22:21-0400 Body weight 162.7 kg [facility] 03-27-2024 22:19-0400 Body height 165.1 cm [facility] 01-15-2024 00:54-0500 Body temperature 98 [degF] [facility] 01-15-2024 00:54-0500 Diastolic blood pressure 82 mm[Hg] [facility] 01-15-2024 00:54-0500 Heart rate 88 /min [facility] 01-15-2024 00:54-0500 Respiratory rate 18 /min [facility] 01-15-2024 00:54-0500 SaO2% (BldA) [Mass fraction] 96 % [facility] 01-15-2024 00:54-0500 Systolic blood pressure 168 mm[Hg] [facility] 01-14-2024 22:43-0500 Body mass index (BMI) [Ratio] 59.9 kg/m2 [facility] 01-14-2024 22:43-0500 Body weight 163.4 kg [facility] 01-14-2024 22:27-0500 Body height 165.1 cm [facility] 01-14-2024 22:27-0500 Inhaled oxygen flow rate 5 L/min [facility] 07-15-2023 13:24-0400 Inhaled oxygen flow rate 4 L/min Dr. Tino Oreilly Work Phone: [facility] 07-15-2023 13:24-0400 SaO2% (BldA) [Mass fraction] 94 % Dr. Tino Oreilly Work Phone: [facility] 07-15-2023 12:46-0400 Body height 165.[address] Tino Oreilly Work Phone: [facility] 07-15-2023 12:46-0400 Body weight 170.[address] Tino Oreilly Work Phone: [facility] 07-15-2023 10:06-0400 Body temperature 97.8 [degF] Dr. Tino Oreilly Work Phone: [facility] 07-15-2023 10:06-0400 Diastolic blood pressure 60 mm[Hg] Dr. Tino Oreilly Work Phone: [facility] 07-15-2023 10:06-0400 Heart rate 70 /min Dr. Tino Oreilly Work Phone: [facility] 07-15-2023 10:06-0400 Inhaled oxygen flow rate 4 L/min Dr. Tino Oreilly Work Phone: [phone] [place] [address] 07-15-2023 10:06-0400 Respiratory rate 20 /min Dr. Tino Oreilly Work Phone: [phone] [place] [address] 07-15-2023 10:06-0400 SaO2% (BldA) [Mass fraction] 96 % Dr. Tino Oreilly Work Phone: 2(283)408-815817 [place] [address] 07-15-2023 10:06-0400 Systolic blood pressure 133 mm[Hg] Dr. Tino Oreilly Work Phone: 1(390)128-750717 [place] [address] 07-15-2023 03:57-0400 Body mass index (BMI) [Ratio] 62.4 kg/m2 Dr. Tino Oreilly Work Phone: 7(530)718-856817 [place] [address] 07-15-2023 03:57-0400 Body weight 170.[address] Tino Oreilly Work Phone: 2(678)837-033517 [place] [address] 07-14-2023 16:40-0400 Body height 165.[address] Tino Oreilly Work Phone: 1(208)147-311917 [place] [address] 07-14-2023 16:19-0400 Body temperature 98.2 [degF] Dr. Tino Oreilly Work Phone: 3(034)997-842017 [place] [address] 07-14-2023 16:19-0400 Diastolic blood pressure 51 mm[Hg] Dr. Tino Oreilly Work Phone: 5(741)036-551317 [place] [address] 07-14-2023 16:19-0400 Heart rate 68 /min Dr. Tino Oreilly Work Phone: 0(056)506-513717 [place] [address] 07-14-2023 16:19-0400 Inhaled oxygen flow rate 5 L/min Dr. Tino Oreilly Work Phone: 0(282)716-688317 [place] [address] 07-14-2023 16:19-0400 Respiratory rate 16 /min Dr. Tino Oreilly Work Phone: 3(859)967-565417 [place] [address] 07-14-2023 16:19-0400 SaO2% (BldA) [Mass fraction] 96 % Dr. Tino Oreilly Work Phone: [facility] 07-14-2023 16:19-0400 Systolic blood pressure 135 mm[Hg] Dr. Tino Oreilly Work Phone: [facility] 07-14-2023 11:19-0400 Body mass index (BMI) [Ratio] 63.8 kg/m2 Dr. Tino Oreilly Work Phone: [facility] 07-14-2023 11:19-0400 Body weight 173.[address] Tino Oreilly Work Phone: [facility] 07-14-2023 11:09-0400 Body height 165.[address] Tino Oreilly Work Phone: [facility] 05-02-2023 12:30-0400 Body temperature 98.2 [degF] Kallie Cali RN Work Phone: [facility] 05-02-2023 12:30-0400 Diastolic blood pressure 70 mm[Hg] Kallie Cali RN Work Phone: [facility] 05-02-2023 12:30-0400 Heart rate 81 /min Kallie Cali RN Work Phone: [facility] 05-02-2023 12:30-0400 Respiratory rate 16 /min Kallie Cali RN Work Phone: [facility] 05-02-2023 12:30-0400 SaO2% (BldA) [Mass fraction] 95 % Kallie Cali RN Work Phone: [facility] 05-02-2023 12:30-0400 Systolic blood pressure 128 mm[Hg] Kallie Cali RN Work Phone: [facility] 04-28-2023 12:30-0400 Body temperature 97.7 [degF] Thierno Knupp PT Work Phone: [facility] 04-28-2023 12:30-0400 Diastolic blood pressure 70 mm[Hg] Thierno Knupp PT Work Phone: [facility] 04-28-2023 12:30-0400 Heart rate 81 /min Thierno Knupp PT Work Phone: [facility] 04-28-2023 12:30-0400 Respiratory rate 18 /min Thierno Knupp PT Work Phone: [facility] 04-28-2023 12:30-0400 SaO2% (BldA) [Mass fraction] 97 % Thierno Knupp PT Work Phone: [facility] 04-28-2023 12:30-0400 Systolic blood pressure 118 mm[Hg] Thierno Knupp PT Work Phone: [facility] 04-26-2023 11:20-0400 Body temperature 98.1 [degF] Jacquelin Mtz RN Work Phone: [facility] 04-26-2023 11:20-0400 Diastolic blood pressure 82 mm[Hg] Jacquelin Mtz RN Work Phone: [facility] 04-26-2023 11:20-0400 Heart rate 88 /min Jacquelin Mtz RN Work Phone: [facility] 04-26-2023 11:20-0400 Respiratory rate 20 /min Jacquelin Mtz RN Work Phone: [facility] 04-26-2023 11:20-0400 SaO2% (BldA) [Mass fraction] 96 % Jacquelin Mtz RN Work Phone: [facility] 04-26-2023 11:20-0400 Systolic blood pressure 128 mm[Hg] Jacquelin Mtz RN Work Phone: [facility] 04-25-2023 13:00-0400 Body temperature 97.7 [degF] Dr. Tino Oreilly Work Phone: [facility] 04-25-2023 13:00-0400 Diastolic blood pressure 75 mm[Hg] Dr. Tino Oreilly Work Phone: [facility] 04-25-2023 13:00-0400 Heart rate 70 /min Dr. Tino Oreilly Work Phone: [facility] 04-25-2023 13:00-0400 Inhaled oxygen flow rate 5 L/min Dr. Tino Oreilly Work Phone: [facility] 04-25-2023 13:00-0400 Respiratory rate 20 /min Dr. Tino Oreilly Work Phone: [facility] 04-25-2023 13:00-0400 SaO2% (BldA) [Mass fraction] 97 % Dr. Tino Oreilly Work Phone: [facility] 04-25-2023 13:00-0400 Systolic blood pressure 145 mm[Hg] Dr. Tino Oreilly Work Phone: [facility] 04-25-2023 05:29-0400 Body mass index (BMI) [Ratio] 64.9 kg/m2 Dr. Tino Oreilly Work Phone: [facility] 04-25-2023 05:29-0400 Body weight 178.[address] Tino Oreilly Work Phone: [facility] 04-25-2023 04:22-0400 Inhaled oxygen concentration 45 % Dr. Tino Oreilly Work Phone: [facility] 04-09-2023 13:37-0400 Body temperature 97.9 [degF] Bonnie Yuen RN Work Phone: [facility] 04-09-2023 13:37-0400 Diastolic blood pressure 84 mm[Hg] Bonnie Yuen RN Work Phone: [facility] 04-09-2023 13:37-0400 Heart rate 80 /min Bonnie Yuen RN Work Phone: [facility] 04-09-2023 13:37-0400 Respiratory rate 16 /min Bonnie Yuen RN Work Phone: [facility] 04-09-2023 13:37-0400 SaO2% (BldA) [Mass fraction] 95 % Bonnie Most RN Work Phone: [facility] 04-09-2023 13:37-0400 Systolic blood pressure 128 mm[Hg] Bonnie Most RN Work Phone: [facility] 04-02-2023 11:29-0400 Body temperature 98.01 [degF] Bonnie Most RN Work Phone: [facility] 04-02-2023 11:29-0400 Diastolic blood pressure 74 mm[Hg] Bonnie Most RN Work Phone: [facility] 04-02-2023 11:29-0400 Heart rate 76 /min Bonnie Most RN Work Phone: [facility] 04-02-2023 11:29-0400 Respiratory rate 16 /min Bonnie Most RN Work Phone: [facility] 04-02-2023 11:29-0400 SaO2% (BldA) [Mass fraction] 98 % Bonnie Most RN Work Phone: [facility] 04-02-2023 11:29-0400 Systolic blood pressure 126 mm[Hg] Bonnie Most RN Work Phone: [facility] 03-21-2023 13:36-0400 Body temperature 98.01 [degF] Bonnie Most RN Work Phone: [facility] 03-21-2023 13:36-0400 Diastolic blood pressure 80 mm[Hg] Bonnie Most RN Work Phone: [facility] 03-21-2023 13:36-0400 Heart rate 76 /min Bonnie Most RN Work Phone: [facility] 03-21-2023 13:36-0400 Respiratory rate 16 /min Bonnie Most RN Work Phone: [facility] 03-21-2023 13:36-0400 SaO2% (BldA) [Mass fraction] 99 % Bonnie Most RN Work Phone: [facility] 03-21-2023 13:36-0400 Systolic blood pressure 124 mm[Hg] Bonnie Most RN Work Phone: [facility] 03-14-2023 14:50-0400 Body temperature 97.39 [degF] Bonnie Most RN Work Phone: [facility] 03-14-2023 14:50-0400 Diastolic blood pressure 64 mm[Hg] Bonnie Most RN Work Phone: [facility] 03-14-2023 14:50-0400 Heart rate 88 /min Bonnie Most RN Work Phone: [facility] 03-14-2023 14:50-0400 Respiratory rate 16 /min Bonnie Most RN Work Phone: [facility] 03-14-2023 14:50-0400 SaO2% (BldA) [Mass fraction] 96 % Bonnie Most RN Work Phone: [facility] 03-14-2023 14:50-0400 Systolic blood pressure 138 mm[Hg] Bonnie Most RN Work Phone: [facility] 03-12-2023 12:42-0400 Diastolic blood pressure 76 mm[Hg] Devin Rufener PT Work Phone: [facility] 03-12-2023 12:42-0400 Heart rate 92 /min Devin Rufener PT Work Phone: [facility] 03-12-2023 12:42-0400 Respiratory rate 19 /min Devin Rufener PT Work Phone: [facility] 03-12-2023 12:42-0400 SaO2% (BldA) [Mass fraction] 97 % Devin Rufener PT Work Phone: [facility] 03-12-2023 12:42-0400 Systolic blood pressure 122 mm[Hg] Devin Rufener PT Work Phone: [facility] 03-12-2023 12:22-0400 Body temperature 97.59 [degF] Devin Rufener PT Work Phone: [facility] 03-11-2023 11:41-0400 Body temperature 97.2 [degF] Hallie Podlogar [employer] Work Phone: [facility] 03-11-2023 11:41-0400 Body weight 161.57 kg Hallie Podlogar [employer] Work Phone: [facility] 03-11-2023 11:41-0400 Diastolic blood pressure 70 mm[Hg] Hallie Podlogar [employer] Work Phone: [facility] 03-11-2023 11:41-0400 Heart rate 91 /min Hallie Podlogar [employer] Work Phone: [facility] 03-11-2023 11:41-0400 Respiratory rate 18 /min Hallie Podlogar [employer] Work Phone: [facility] 03-11-2023 11:41-0400 SaO2% (BldA) [Mass fraction] 97 % Hallie Podlogar [employer]AGE [employer] Work Phone: [facility] 03-11-2023 11:41-0400 Systolic blood pressure 132 mm[Hg] Hallie Podlogar [employer] Work Phone: [facility] 03-10-2023 11:32-0400 Body temperature 99.19 [degF] Chey Acharya RN Work Phone: [facility] 03-10-2023 11:32-0400 Diastolic blood pressure 72 mm[Hg] Chey Peralta N Work Phone: [facility] 03-10-2023 11:32-0400 Heart rate 88 /min Chey Acharya RN Work Phone: [facility] 03-10-2023 11:32-0400 Respiratory rate 18 /min Chey Acharya RN Work Phone: [facility] 03-10-2023 11:32-0400 SaO2% (BldA) [Mass fraction] 97 % Chey Acharya RN Work Phone: [facility] 03-10-2023 11:32-0400 Systolic blood pressure 126 mm[Hg] Chey Acharya RN Work Phone: [facility] 03-07-2023 11:53-0400 Body temperature 97.7 [degF] Chey Acharya RN Work Phone: [facility] 03-07-2023 11:53-0400 Diastolic blood pressure 84 mm[Hg] Chey Peralta N Work Phone: [facility] 03-07-2023 11:53-0400 Heart rate 104 /min Chey Acharya RN Work Phone: [facility] 03-07-2023 11:53-0400 Respiratory rate 20 /min Chey Acharya RN Work Phone: [facility] 03-07-2023 11:53-0400 SaO2% (BldA) [Mass fraction] 98 % Chey Acharya RN Work Phone: [facility] 03-07-2023 11:53-0400 Systolic blood pressure 142 mm[Hg] Chey Acharya RN Work Phone: [facility] 03-05-2023 15:04-0400 Body temperature 97.8 [degF] Dr. Tino Oreilly Work Phone: [facility] 03-05-2023 15:04-0400 Diastolic blood pressure 75 mm[Hg] Dr. Tino Oreilly Work Phone: [facility] 03-05-2023 15:04-0400 Heart rate 72 /min Dr. Tino Oreilly Work Phone: [facility] 03-05-2023 15:04-0400 Inhaled oxygen flow rate 5 L/min Dr. Tino Oreilly Work Phone: [facility] 03-05-2023 15:04-0400 Respiratory rate 15 /min Dr. Tino Oreilly Work Phone: [facility] 03-05-2023 15:04-0400 SaO2% (BldA) [Mass fraction] 97 % Dr. Tino Oreilly Work Phone: [facility] 03-05-2023 15:04-0400 Systolic blood pressure 159 mm[Hg] Dr. Tino Oreilly Work Phone: [facility] 03-05-2023 04:09-0400 Body mass index (BMI) [Ratio] 61.9 kg/m2 Dr. Tino Oreilly Work Phone: [facility] 03-05-2023 04:09-0400 Body weight 168.[address] Tino Oreilly Work Phone: [facility] 03-05-2023 00:55-0400 Inhaled oxygen concentration 40 % Dr. Tino Oreilly Work Phone: [facility] 03-03-2023 10:39-0400 Body height 165.[address] Tino Oreilly Work Phone: [facility] 02-27-2023 16:50-0400 Body temperature 98.01 [degF] Bonnie Yuen RN Work Phone: [facility] 02-27-2023 16:50-0400 Diastolic blood pressure 76 mm[Hg] Bonnie Yuen RN Work Phone: [facility] 02-27-2023 16:50-0400 Heart rate 92 /min Bonnie Yuen RN Work Phone: [facility] 02-27-2023 16:50-0400 Respiratory rate 20 /min Bonnie Yuen RN Work Phone: [facility] 02-27-2023 16:50-0400 SaO2% (BldA) [Mass fraction] 93 % Bonnie Yuen RN Work Phone: [facility] 02-27-2023 16:50-0400 Systolic blood pressure 124 mm[Hg] Bonnie Yuen RN Work Phone: [facility] 02-23-2023 14:00-0400 Body temperature 98.29 [degF] Zahra Jackson RN Work Phone: [facility] 02-23-2023 14:00-0400 Diastolic blood pressure 82 mm[Hg] Zahra Peralta N Work Phone: [facility] 02-23-2023 14:00-0400 Heart rate 84 /min Zahra Jackson RN Work Phone: [facility] 02-23-2023 14:00-0400 Respiratory rate 20 /min Zahra Jackson RN Work Phone: [facility] 02-23-2023 14:00-0400 SaO2% (BldA) [Mass fraction] 96 % Zahra Jackson RN Work Phone: [facility] 02-23-2023 14:00-0400 Systolic blood pressure 138 mm[Hg] Zahra Jackson RN Work Phone: [facility] 02-18-2023 21:00-0400 Diastolic blood pressure 76 mm[Hg] Dr. Tino Oreilly Work Phone: [facility] 02-18-2023 21:00-0400 Systolic blood pressure 119 mm[Hg] Dr. Tino Oreilly Work Phone: [facility] 02-18-2023 20:00-0400 Body temperature 98.1 [degF] Dr. Tino Oreilly Work Phone: [facility] 02-18-2023 20:00-0400 Heart rate 103 /min Dr. Tino Oreilly Work Phone: [facility] 02-18-2023 20:00-0400 Inhaled oxygen flow rate 5 L/min Dr. Tino Oreilly Work Phone: [facility] 02-18-2023 20:00-0400 Respiratory rate 14 /min Dr. Tino Oreilly Work Phone: [facility] 02-18-2023 20:00-0400 SaO2% (BldA) [Mass fraction] 92 % Dr. Tino Oreilly Work Phone: [facility] 02-18-2023 17:23-0400 Body mass index (BMI) [Ratio] 63.6 kg/m2 Dr. Tino Oreilly Work Phone: [facility] 02-18-2023 17:23-0400 Body weight 173.[address] Tino Oreilly Work Phone: [facility] 02-18-2023 16:42-0400 Body height 165.[address] Tino Oreilly Work Phone: [facility] 02-18-2023 11:13-0400 Diastolic blood pressure 72 mm[Hg] Panfilo Oreilly MD Work Phone: [facility] 02-18-2023 11:13-0400 Heart rate 99 /min Panfilo Oreilly MD Work Phone: [facility] 02-18-2023 11:13-0400 Respiratory rate 18 /min Panfilo Oreilly MD Work Phone: [facility] 02-18-2023 11:13-0400 SaO2% (BldA) [Mass fraction] 91 % Panfilo Oreilly MD Work Phone: [facility] 02-18-2023 11:13-0400 Systolic blood pressure 128 mm[Hg] Panfilo Oreilly MD Work Phone: [facility] 01-12-2023 23:09-0500 Body height 165.[address] Tino Oreilly Work Phone: [facility] 01-12-2023 23:09-0500 Body mass index (BMI) [Ratio] 64.3 kg/m2 Dr. Tino Oreilly Work Phone: [facility] 01-12-2023 23:09-0500 Body temperature 98.2 [degF] Dr. Tino Oreilly Work Phone: [facility] 01-12-2023 23:09-0500 Body weight 175.[address] Tino Oreilly Work Phone: [facility] 01-12-2023 23:09-0500 Diastolic blood pressure 63 mm[Hg] Dr. Tino Oreilly Work Phone: [facility] 01-12-2023 23:09-0500 Heart rate 85 /min Dr. Tino Oreilly Work Phone: [facility] 01-12-2023 23:09-0500 Inhaled oxygen flow rate 3 L/min Dr. Tino Oreilly Work Phone: [facility] 01-12-2023 23:09-0500 Respiratory rate 16 /min Dr. Tino Oreilly Work Phone: [facility] 01-12-2023 23:09-0500 SaO2% (BldA) [Mass fraction] 96 % Dr. Tino Oreilly Work Phone: [facility] 01-12-2023 23:09-0500 Systolic blood pressure 157 mm[Hg] Dr. Tino Oreilly Work Phone: [facility] 12-30-2022 13:37-0500 SaO2% (BldA) [Mass fraction] 93 % [facility] Comment on above: Order Comment: Specimen Type: ARTERIAL B LOOD SPECIMENOrdering Facility: [facility] Address: [address] [place] [address] Performed By: #### A LLBG ####[facility] LABORATORYCLIA [id number] [address] OF [facility] 12-27-2022 07:00-0500 SaO2% (BldA) [Mass fraction] 97 % [facility] Comment on above: Order Comment: Specimen Type: ARTERIAL B LOOD SPECIMENOrdering Facility: [facility] Address: [address] [place] [address] Performed By: #### A LLBG ####[facility] LABORATORYCLIA [id number] [address] OF [facility] 12-25-2022 13:42-0500 SaO2% (BldA) [Mass fraction] 97 % [facility] Comment on above: Order Comment: Specimen Type: ARTERIAL B LOOD SPECIMENOrdering Facility: [facility] Address: [address] [place] [address] Performed By: #### A LLBG ####[facility]ORATORYCLIA [id number] [address] 12-25-2022 10:54-0500 SaO2% (BldA) [Mass fraction] 99 % [facility] Comment on above: Order Comment: Specimen Type: ARTERIAL B LOOD SPECIMENOrdering Facility: [facility] Address: [address] [place] [address] Performed By: #### A LLBG ####[facility]ORATORYCLIA [id number] [address] 12-25-2022 08:26-0500 SaO2% (BldA) [Mass fraction] 96 % PANFILO [facility] Comment on above: Order Comment: Specimen Type: ARTERIAL B LOOD SPECIMENOrdering Facility: [facility] Address: [address] [place] [address] Performed By: #### A LLBG ####[facility]ORATORYCLIA [id number] [address] 12-24-2022 23:35-0500 Diastolic blood pressure 47 mm[Hg] Dr. Tino Oreilly Work Phone: [facility] 12-24-2022 23:35-0500 Heart rate 109 /min Dr. Tino Oreilly Work Phone: [facility] 12-24-2022 23:35-0500 Inhaled oxygen flow rate 5 L/min Dr. Tino Oreilly Work Phone: [facility] 12-24-2022 23:35-0500 Respiratory rate 16 /min Dr. Tino Oreilly Work Phone: 2(321)657-298016 [place] [address] 12-24-2022 23:35-0500 SaO2% (BldA) [Mass fraction] 94 % Dr. Tino Oreilly Work Phone: 9(602)891-643917 [place] [address] 12-24-2022 23:35-0500 Systolic blood pressure 109 mm[Hg] Dr. Tino Oreilly Work Phone: 3(957)573-164717 [place] [address] 12-24-2022 21:08-0500 Body height 170.[address] Tino Oreilly Work Phone: 8(747)703-183117 [place] [address] 12-24-2022 21:08-0500 Body mass index (BMI) [Ratio] 58.7 kg/m2 Dr. Tino Oreilly Work Phone: 7(250)574-871917 [place] [address] 12-24-2022 21:08-0500 Body temperature 97 [degF] Dr. Tino Oreilly Work Phone: 5(586)427-943717 [place] [address] 12-24-2022 21:08-0500 Body weight 170.[address] Tino Oreilly Work Phone: 8(852)995-721117 [place] [address] 12-20-2022 16:28-0500 Body temperature 98.5 [degF] Dr. Tino Oreilly Work Phone: 9(782)582-802817 [place] [address] 12-20-2022 16:28-0500 Diastolic blood pressure 96 mm[Hg] Dr. Tino Oreilly Work Phone: 2(693)287-687117 [place] [address] 12-20-2022 16:28-0500 Heart rate 103 /min Dr. Tino Oreilly Work Phone: 9(764)448-417017 [place] [address] 12-20-2022 16:28-0500 Inhaled oxygen flow rate 2 L/min Dr. Tino Oreilly Work Phone: 6(473)873-786117 [place] [address] 12-20-2022 16:28-0500 Respiratory rate 19 /min Dr. Tino Oreilly Work Phone: 9(870)480-371817 [place] [address] 12-20-2022 16:28-0500 SaO2% (BldA) [Mass fraction] 94 % Dr. Tino Oreilly Work Phone: 1(536)901-062316 [place] [address] 12-20-2022 16:28-0500 Systolic blood pressure 149 mm[Hg] Dr. Tino Oreilly Work Phone: 3(477)902-763817 [place] [address] 12-19-2022 23:55-0500 Inhaled oxygen concentration 35 % Dr. Tino Oreilly Work Phone: 4(126)830-694517 [place] [address] 12-19-2022 13:59-0500 Body height 170.[address] Tino Oreilly Work Phone: 3(967)373-522117 [place] [address] 12-19-2022 13:59-0500 Body weight 174.[address] Tino Oreilly Work Phone: 5(715)823-622717 [place] [address] 12-19-2022 00:31-0500 Body mass index (BMI) [Ratio] 60.1 kg/m2 Dr. Tino Oreilly Work Phone: 7(065)858-613917 [place] [address] 12-18-2022 23:35-0500 Body temperature 97.9 [degF] Dr. Tino Oreilly Work Phone: 9(723)265-276817 [place] [address] 12-18-2022 23:35-0500 Diastolic blood pressure 104 mm[Hg] Dr. Tino Oreilly Work Phone: 2(515)528-817217 [place] [address] 12-18-2022 23:35-0500 Heart rate 101 /min Dr. Tino Oreilly Work Phone: 1(087)256-391117 [place] [address] 12-18-2022 23:35-0500 Inhaled oxygen flow rate 3 L/min Dr. Tino Oreilly Work Phone: 1(853)225-740217 [place] [address] 12-18-2022 23:35-0500 Respiratory rate 16 /min Dr. Tino Oreilly Work Phone: 2(844)820-183217 [place] [address] 12-18-2022 23:35-0500 SaO2% (BldA) [Mass fraction] 92 % Dr. Tino Oreilly Work Phone: 2(895)584-949617 [place] [address] 12-18-2022 23:35-0500 Systolic blood pressure 153 mm[Hg] Dr. Tino Oreilly Work Phone: 6(659)564-640016 [place] [address] 12-18-2022 21:35-0500 Body height 170.[address] Tino Oreilly Work Phone: 2(701)389-048417 [place] [address] 12-18-2022 21:35-0500 Body mass index (BMI) [Ratio] 61.9 kg/m2 Dr. Tino Oreilly Work Phone: 5(856)328-335417 [place] [address] 12-18-2022 21:35-0500 Body weight 179.[address] Tino Oreilly Work Phone: 7(510)884-656517 [place] [address] 12-09-2022 14:17-0500 Diastolic blood pressure 87 mm[Hg] Dr. Tino Oreilly Work Phone: 2(861)363-489717 [place] [address] 12-09-2022 14:17-0500 Heart rate 98 /min Dr. Tino Oreilly Work Phone: 6(738)833-801517 [place] [address] 12-09-2022 14:17-0500 Systolic blood pressure 111 mm[Hg] Dr. Tino Oreilly Work Phone: 4(170)958-206717 [place] [address] 12-09-2022 12:55-0500 Inhaled oxygen flow rate 4 L/min Dr. Tino Oreilly Work Phone: 9(320)848-676517 [place] [address] 12-09-2022 12:55-0500 Respiratory rate 23 /min Dr. Tino Oreilly Work Phone: 3(189)713-847917 [place] [address] 12-09-2022 12:55-0500 SaO2% (BldA) [Mass fraction] 94 % Dr. Tino Oreilly Work Phone: 9(455)213-723313 [address] 12-09-2022 11:58-0500 Body height 170.[address] Tino Oreilly Work Phone: 0(463)120-823817 [place] [address] Work Phone: 12-09-2022 11:58-0500 Body mass index (BMI) [Ratio] 59.8 kg/m2 Dr. Tino Oreilly Work Phone: 8(122)468-412617 [place] [address] 12-09-2022 11:58-0500 Body temperature 97.8 [degF] Dr. Tino Oreilly Work Phone: 3(787)843-225617 [place] [address] 12-09-2022 11:58-0500 Body weight 173.[address] Tino Oreilly Work Phone: 4(888)074-933617 [place] [address] 11-01-2022 16:50-0500 Body temperature 98.7 [degF] Dr. Tino Oreilly Work Phone: 3(642)358-520617 [place] [address] 11-01-2022 16:50-0500 Diastolic blood pressure 54 mm[Hg] Dr. Tino Oreilly Work Phone: 3(772)744-735717 [place] [address] 11-01-2022 16:50-0500 Heart rate 94 /min Dr. Tino Oreilly Work Phone: 9(285)576-524417 [place] [address] 11-01-2022 16:50-0500 Inhaled oxygen flow rate 15 L/min Dr. Tino Oreilly Work Phone: 5(340)707-939017 [place] [address] 11-01-2022 16:50-0500 Respiratory rate 18 /min Dr. Tino Oreilly Work Phone: 1(073)174-233117 [place] [address] 11-01-2022 16:50-0500 SaO2% (BldA) [Mass fraction] 97 % Dr. Tino Oreilly Work Phone: 9(641)773-608117 [place] [address] 11-01-2022 16:50-0500 Systolic blood pressure 121 mm[Hg] Dr. Tino Oreilly Work Phone: 8(855)978-372917 [place] [address] 11-01-2022 14:36-0500 Body height 165.[address] Tino Oreilly Work Phone: 0(470)650-652017 [place] [address] Work Phone: 11-01-2022 14:36-0500 Body mass index (BMI) [Ratio] 62.9 kg/m2 Dr. Tino Oreilly Work Phone: 9(404)402-335716 [place] [address] 11-01-2022 14:36-0500 Body weight 171.[address] Tino Oreilly Work Phone: [facility] 10-18-2022 10:41-0500 Body temperature 96.8 [degF] Panfilo Oreilly MD Work Phone: [facility] 10-18-2022 10:41-0500 Body weight 178.9 kg Panfilo Oreilly MD Work Phone: [facility] [facility] 10[facility]18[facility]22 10:41-0500 Diastolic blood pressure 70 mm[Hg] Panfilo Oreilly MD Work Phone: [facility] 10-18-2022 10:41-0500 Heart rate 100 /min Panfilo Oreilly MD Work Phone: [facility] 10-18-2022 10:41-0500 Respiratory rate 20 /min Panfilo Oreilly MD Work Phone: [facility] 10-18-2022 10:41-0500 SaO2% (BldA) [Mass fraction] 97 % Panfilo Oreilly MD Work Phone: [facility] 10-18-2022 10:41-0500 Systolic blood pressure 124 mm[Hg] Panfilo Oreilly MD Work Phone: [facility] 09-24-2022 12:44-0400 Body temperature 97.7 [degF] Dr. Tino Oreilly Work Phone: [phone] [place] [address] 09-24-2022 12:44-0400 Diastolic blood pressure 80 mm[Hg] Dr. Tino Oreilly Work Phone: [facility] 09-24-2022 12:44-0400 Heart rate 86 /min Dr. Tino Oreilly Work Phone: [facility] 09-24-2022 12:44-0400 Inhaled oxygen flow rate 3 L/min Dr. Tino Oreilly Work Phone: [phone] [place] [address] 09-24-2022 12:44-0400 Respiratory rate 18 /min Dr. Tino Oreilly Work Phone: [facility] 09-24-2022 12:44-0400 SaO2% (BldA) [Mass fraction] 96 % Dr. Tino Oreilly Work Phone: [facility] 09-24-2022 12:44-0400 Systolic blood pressure 142 mm[Hg] Dr. Tino Oreilly Work Phone: [facility] 09-24-2022 10:58-0400 Inhaled oxygen concentration 30 % Dr. Tino Oreilly Work Phone: [facility] 09-24-2022 06:00-0400 Body weight 172.[address] Tino Oreilly Work Phone: [facility] 09-23-2022 13:40-0400 Body height 165.[address] Tino Oreilly Work Phone: [facility] Work Phone: 09-22-2022 19:33-0400 Body mass index (BMI) [Ratio] 64.3 kg/m2 Dr. Tino Oreilly Work Phone: [facility] 09-22-2022 18:30-0400 Body temperature 97.7 [degF] [facility] Work Phone: 09-22-2022 18:30-0400 Diastolic blood pressure 71 mm[Hg] [facility] Work Phone: 09-22-2022 18:30-0400 Heart rate 103 /min [facility] Work Phone: 09-22-2022 18:30-0400 Inhaled oxygen concentration 31 % [facility] Work Phone: 09-22-2022 18:30-0400 Inhaled oxygen flow rate 6 L/min [facility] Work Phone: 09-22-2022 18:30-0400 Respiratory rate 18 /min [facility] Work Phone: 09-22-2022 18:30-0400 SaO2% (BldA) [Mass fraction] 92 % [facility] Work Phone: 09-22-2022 18:30-0400 Systolic blood pressure 120 mm[Hg] [facility] Work Phone: 09-22-2022 16:28-0400 Body height 165.1 cm [facility] Work Phone: 09-22-2022 16:28-0400 Body mass index (BMI) [Ratio] 65.9 kg/m2 [facility] Work Phone: 09-22-2022 16:28-0400 Body weight 179.8 kg [facility] Work Phone: 07-23-2022 10:27-0400 Body height 166.4 cm Berenice aBuman MD Work Phone: [facility] 07-23-2022 10:27-0400 Body temperature 98.2 [degF] Berenice Bauman MD Work Phone: [facility] 07-23-2022 10:27-0400 Body weight 176.45 kg Berenice Bauman MD Work Phone: [facility] 07-23-2022 10:27-0400 Diastolic blood pressure 71 mm[Hg] Berenice Bauman MD Work Phone: [facility] 07-23-2022 10:27-0400 Heart rate 103 /min Berenice Bauman MD Work Phone: [facility] 07-23-2022 10:27-0400 SaO2% (BldA) [Mass fraction] 92 % Berenice Bauman MD Work Phone: [facility] 07-23-2022 10:27-0400 Systolic blood pressure 136 mm[Hg] Berenice Bauman MD Work Phone: [facility] 03-31-2022 22:56-0400 Diastolic blood pressure 85 mm[Hg] Dr. Tino Oreilly Work Phone: [facility] Work Phone: 03-31-2022 22:56-0400 Heart rate 90 /min Dr. Tino Oreilly Work Phone: [facility] Work Phone: 03-31-2022 22:56-0400 Respiratory rate 18 /min Dr. Tino Oreilly Work Phone: [facility] Work Phone: 03-31-2022 22:56-0400 Systolic blood pressure 102 mm[Hg] Dr. Tino Oreilly Work Phone: [facility] Work Phone: 03-31-2022 21:48-0400 SaO2% (BldA) [Mass fraction] 94 % Dr. Tino Oreilly Work Phone: [facility] Work Phone: 03-31-2022 20:45-0400 Body height 165.[address] Tino Oreilly Work Phone: [facility] Work Phone: 03-31-2022 20:45-0400 Body mass index (BMI) [Ratio] 64.2 kg/m2 Dr. Tino Oreilly Work Phone: [facility] Work Phone: 03-31-2022 20:45-0400 Body temperature 97.3 [degF] Dr. Tino Oreilly Work Phone: [facility] Work Phone: 03-31-2022 20:45-0400 Body weight 175.[address] Tino Oreilly Work Phone: [facility] Work Phone: 03-19-2022 10:09-0400 Body weight 168.65 kg Hallie Martinez APRN.OIL TANK CAR CLEANER Work Phone: [facility] 03-19-2022 10:09-0400 Diastolic blood pressure 82 mm[Hg] Hallie Martinez APRN.[employer]ER Work Phone: [facility] 03-19-2022 10:09-0400 Heart rate 83 /min Hallie Podlogar SAUSAGE STRINGER.O[employer] T[employer] CAR CLEANER Work Phone: [facility] 03-19-2022 10:09-0400 Respiratory rate 20 /min Hallie Podlogar SAUSAGE STRINGER.[employer] T[employer] CAR CLEANER Work Phone: [facility] 03-19-2022 10:09-0400 SaO2% (BldA) [Mass fraction] 97 % Hallie Podlogar SAUSAGE STRINGER.[employer] T[employer] CAR CLEANER Work Phone: [facility] 03-19-2022 10:09-0400 Systolic blood pressure 140 mm[Hg] Hallie Podlogar SAUSAGE STRINGER.OIL TANK CAR CLEANER Work Phone: [facility] 03-01-2022 12:43-0400 Body height 1950.[address] Tino Oreilly Work Phone: [facility] Work Phone: 03-01-2022 12:43-0400 Body weight 163.[address] Tino Oreilly Work Phone: [facility] Work Phone: 03-01-2022 12:43-0400 Heart rate 120 /min Dr. Tino Oreilly Work Phone: [facility] Work Phone: 03-01-2022 12:43-0400 SaO2% (BldA) [Mass fraction] 90 % Dr. Tino Oreilly Work Phone: [facility] Work Phone: 02-07-2022 08:57-0500 Body temperature 98.6 [degF] Dr. Tino Oreilly Work Phone: [facility] Work Phone: 02-07-2022 08:57-0500 Diastolic blood pressure 92 mm[Hg] Dr. Tino Oreilly Work Phone: [facility] Work Phone: 02-07-2022 08:57-0500 Heart rate 103 /min Dr. Tino Oreilly Work Phone: [facility] Work Phone: 02-07-2022 08:57-0500 Respiratory rate 19 /min Dr. Tino Oreilly Work Phone: [facility] Work Phone: 02-07-2022 08:57-0500 SaO2% (BldA) [Mass fraction] 91 % Dr. Tino Oreilly Work Phone: [facility] Work Phone: 02-07-2022 08:57-0500 Systolic blood pressure 113 mm[Hg] Dr. Tino Oreilly Work Phone: [facility] Work Phone: 01-18-2022 13:59-0500 Heart rate 69 /min Dr. Tino Oreilly Work Phone: [facility] Work Phone: 01-18-2022 13:59-0500 Respiratory rate 19 /min Dr. Tino Oreilly Work Phone: [facility] Work Phone: 01-18-2022 11:47-0500 Body weight 173.[address] Tino Oreilly Work Phone: [facility] Work Phone: 01-18-2022 08:02-0500 Diastolic blood pressure 79 mm[Hg] Dr. Tino Oreilly Work Phone: [facility] Work Phone: 01-18-2022 08:02-0500 Systolic blood pressure 152 mm[Hg] Dr. Tino Oreilly Work Phone: [facility] Work Phone: 01-18-2022 07:58-0500 Body temperature 97.9 [degF] Dr. Tino Oreilly Work Phone: [facility] Work Phone: 01-18-2022 07:58-0500 SaO2% (BldA) [Mass fraction] 96 % Dr. Tino Oreilly Work Phone: [facility] Work Phone: 01-18-2022 03:27-0500 Inhaled oxygen concentration 45 % Dr. Tino Oreilly Work Phone: [facility] Work Phone: 01-15-2022 18:20-0500 Body mass index (BMI) [Ratio] 64.7 kg/m2 Dr. Tino Oreilly Work Phone: [facility] Work Phone: Encounters Encounter Date Encounter Type Care Provider Facility Start: 10-19-2025 [facility] Facility:[facility] Start: 10-14-2025 ambulatory [facility] Facility: [facility] Start: 09-28-2025 End: 09-30-2025 ambulatory [facility] Facility:[facility] Start: 09-19-2025 ambulatory [facility] Facility:[facility] Start: 08-19-2025 Non-patient / Non-visit Dr. Jersey bloom MD -[facility] Work Phone: Start: 08-18-2025 Non-patient / Non-visit Dr. Jersey bloom MD -[facility] Work Phone: Start: 08-17-2025 Non-patient / Non-visit Dr. Jersey bloom MD -[facility] Work Phone: Start: 08-16-2025 ambulatory Olamide Mas Facility :[facility] Start: 08-16-2025 End: 08-19-2025 Evaluation and management of inpatient Dr. Olamide Mas MD -[facility] Work Phone: Start: 08-15-2025 ambulatory [facility] Facility: [facility] Start: 07-15-2025 End: 07-15-2025 [facility] Start: 06-16-2025 End: 06-16-2025 [facility] Start: 06-09-2025 End: 06-09-2025 ambulatory [facility] Facility:[facility] Start: 05-31-2025 End: 05-31-2025 ambulatory [facility] Start: 05-31-2025 Encounter for genera l adult medical examination without abnormal findings [facility] Start: 11-12-2024 ambulatory Chalon Barbi Facility:[facility] Start: 11-09-2024 ambulatory Olamide L White Facility :[facility] Start: 11-09-2024 End: 11-12-2024 Evaluation and management of inpatient Olamide L White Facility:[facility] Start: 03-27-2024 End: 03-28-2024 Emergency department patient visit [facility]Emergency Department Work Phone: Start: 03-23-2024 End: 03-23-2024 ambulatory [facility] Work Phone: Start: 03-23-2024 End: 03-23-2024 Patient encounter procedure [facility] Start: 01-14-2024 End: 01-15-2024 Emergency department patient visit [facility] Work Phone: Start: 01-02-2024 End: 01-02-2024 ambulatory [facility] Work Phone: Start: 01-02-2024 End: 01-02-2024 Patient encounter procedure [facility] - [facility] Work Phone: Start: 10-14-2023 End: 10-14-[address] Tino Oreilly Work Phone: [facility] Work Phone: Start: 10-14-2023 End: 10-14-[address] Tino Oreilly Work Phone: [facility], [facility] Work Phone: Start: 09-25-2023 End: 09-25-[address] Tino Oreilly Work Phone: [facility] Work Phone: Start: 09-25-2023 End: 09-25-[address] Tino Oreilly Work Phone: [facility] Start: 09-18-2023 End: 09-18-[address] Tino Oreilly Work Phone: [facility] Work Phone: Start: 09-18-2023 End: 09-18-[address] Tino Oreilly Work Phone: [facility] Start: 08-05-2023 Telephone encounter Tino Oreilly MD Work Phone: [facility] Comment on above: Opened In Error Start: 08-01-2023 Refill Panfilo Oreilly MD Work Phone: [facility] Comment on above: Refill Request Start: 07-30-2023 Telephone encounter Tino Oreilly MD Work Phone: [facility] Comment on above: Appointment Start: 07-29-2023 Refill No Pcp [employer]AGE [employer]INGER [facility] Comment on above: Refill Request Start: 07-23-2023 Refill No Pcp [employer]AGE [employer] [facility] Comment on above: Refill Request Start: 07-15-2023 Non-patient / Non-visit Dr. Moe Oreilly Work Phone: [facility] Work Phone: Start: 07-14-2023 Non-patient / Non-visit Dr. Moe Oreilly Work Phone: [facility] Work Phone: Start: 07-14-2023 End: 07-15-2023 Evaluation and management of inpatient Dr. Tino Oreilly Work Phone: [facility] Work Phone: Start: 07-14-2023 End: 07-15-[address] Tino Oreilly Work Phone: [facility] Work Phone: Start: 07-14-2023 Evaluation and management of inpatient Dr. Tino Oreilly Work Phone: [facility]-Progressive Care Unit Work Phone: Start: 07-14-[address] Dalila Oreilly Work Phone: [facility] Work Phone: Start: 07-08-2023 Telephone encounter Tino Oreilly MD Work Phone: [facility] Comment on above: Medication Request Insurance Authorizat ion (Test strips/lancets ) Refill Request Start: 06-25-2023 Refill No Pcp SAUSAGE STRINGER [facility] Comment on above: Opened In Error Start: 06-17-2023 Refill Panfilo Oreilly MD Work Phone: [facility] Comment on above: Refill Request Start: 06-06-2023 Patient Outreach Omaira Taveras RN A [facility] Care Management Comment on above: Transition Of Care ( TCM Initial Outreach: [facility] [place] 05/31/23, KERRY) Start: 05-29-2023 Refill Panfilo Oreilly MD Work Phone: [facility] Comment on above: Opened In Error Start: 05-23-2023 Refill Panfilo Oreilly MD Work Phone: [facility] Comment on above: Refill Request Start: 05-14-2023 Telephone encounter Tino Oreilly MD Work Phone: [facility] Comment on above: DME Start: 05-02-2023 Telephone encounter Kallie mojica RN Work Phone: [facility] Comment on above: Home Care (Pt d/c to day) Opened In Error Start: 05-02-2023 End: 05-02-2023 Home visit Kallie Cali RN Work Phone: [facility] Comment on above: SN AGENCY DC W VISIT Start: 04-30-2023 End: 04-30-2023 Home visit Roc Osullivan FILTER ASSEMBLER Work Phone: [facility] Comment on above: SN UNMADE VISIT Start: 04-30-2023 ambulatory Panfilo Oreilly MD Work Phone: [facility] [place] Start: 04-29-2023 End: 04-29-2023 Home visit Karyn Becerrairineo [employer] Work Phone: [facility] Comment on above: TELEPHONE CONTACT Start: 04-28-2023 End: 04-28-2023 Home visit Thierno Deuce PT Work Phone: [facility] Comment on above: PT EVAL Start: 04-28-2023 Non-patient / Non-visit Dr. Moe Oreilly Work Phone: [facility] Work Phone: Start: 04-26-2023 End: 04-26-2023 Home visit Jacquelin Mtz RN Work Phone: [facility] Comment on above: SN JIGNESH Start: 04-25-2023 Refill Panfilo Oreilly MD Work Phone: [facility] Comment on above: Refill Request Start: 04-25-2023 Non-patient / Non-visit Dr. Moe Oreilly Work Phone: [facility] Work Phone: Start: 04-24-2023 Non-patient / Non-visit Dr. Moe Oreilly Work Phone: [facility] Start: 04-24-2023 End: 04-24-2023 Home visit Jacquelin Mtz RN Work Phone: [facility] Comment on above: SN TRANSFER Start: 04-24-2023 Non-patient / Non-visit Dr. Moe Oreilly Work Phone: [facility] Work Phone: Start: 04-23-2023 End: 04-25-2023 Evaluation and management of inpatient Dr. Tino Oreilly Work Phone: [facility] 3 Work Phone: Start: 04-09-2023 End: 04-09-2023 Home visit Bonnie Yuen RN Work Phone: [facility] Comment on above: SN ROUTINE Start: 04-02-2023 End: 04-02-2023 Home visit Bonnie Yuen RN Work Phone: [facility] Comment on above: SN ROUTINE Start: 03-28-2023 Refill Panfilo Oreilly MD Work Phone: [facility] Comment on above: Refill Request Start: 03-27-2023 Documentation procedure Randy Sellers MD Work Phone: [facility] Start: 03-27-2023 Letter encounter Conrado Sellers MD Work Phone: [facility] Start: 03-21-2023 End: 03-21-2023 Home visit Bonnie Yuen RN Work Phone: [facility] Comment on above: SN ROUTINE Start: 03-19-2023 End: 03-19-2023 Home visit Karyn KNAGW Work Phone: [facility] Comment on above: KILN LOADER CARE COORDINATIO N Start: 03-14-2023 End: 03-14-2023 Home visit Bonnie Yuen RN Work Phone: [facility] Comment on above: SN ROUTINE Start: 03-12-2023 Telephone encounter Hallie hua APRN.CNP Work Phone: [facility] Comment on above: Orders Request Start: 03-12-2023 End: 03-12-2023 Home visit Devin Rufener PT Work Phone: [facility] Comment on above: PT EVAL Start: 03-11-2023 End: 03-11-2023 Patient encounter procedure Hallie Podlogericka FERGUSONN.OIL TANK CAR CLEANER Work Phone: [facility] Comment on above: Hospital discharge f ollow-up (Primary Dx); Morbid obesity (HCC); Open wound of inguinal region, sequela; Pneumonia due to infectious organism, unspecified laterality, unspecified part of lung; Oxygen dependent; Impaired ambulation; Stress incontinence; Anxiety and depression; Failure to attend appointment with reason given Start: 03-10-2023 End: 03-10-2023 Home visit Chey Acharya RN Work Phone: [facility] Comment on above: SN ROUTINE Start: 03-08-2023 Telephone encounter Moni (Meera) [facility] Comment on above: Home Care Start: 03-07-2023 End: 03-07-2023 Home visit Karyn ALBARADO Work Phone: [facility] Comment on above: KILN LOADER CARE COORDINATIO N SN SOC Start: 03-06-2023 Telephone encounter Malka Mas LP N [facility] Comment on above: Home Care (Home care change of insurance) Start: 03-05-2023 Telephone encounter Opal nicole Work Phone: [facility] Comment on above: Home Care (Confirmat ion Call ) Patient Update Start: 03-05-2023 Dr. Tino Oreilly Work Phone: [facility] Start: 03-05-2023 End: 03-05-2023 Home visit Irina Martínez RN Work Phone: [facility] Comment on above: SN NO ADMIT Start: 03-05-2023 Dr. Tino Oreilly Work Phone: [facility] Start: 03-04-2023 End: 03-04-2023 Home visit Karyn ALBARADO Work Phone: [facility] Comment on above: [facility]ORD[facility] N Start: 03-04-2023 Dr. Tino Oreilly Work Phone: [facility] Start: 03-04-2023 Dr. Tino Oreilly Work Phone: [facility] Start: 03-03-2023 End: 03-03-2023 Home visit Bonnie Yuen RN Work Phone: [facility] Comment on above: SN AGENCY DC WO VISI T Start: 03-03-2023 Dr. Tino Oreilly Work Phone: [facility] Start: 03-03-2023 Dr. Tino Oreilly Work Phone: [facility] Start: 03-02-2023 Dr. Tino Oreilly Work Phone: [facility] Start: 03-02-2023 End: 03-05-2023 Evaluation and management of inpatient Dr. Tino Oreilly Work Phone: [facility] Work Phone: Start: 03-02-2023 End: 03-05-2023 Dr. Tino Oreilly Work Phone: [facility]-Intensive Care Unit Start: 02-27-2023 End: 02-27-2023 Home visit Bonnie uYen RN Work Phone: [facility] Comment on above: SN ROUTINE Start: 02-26-2023 End: 02-26-2023 Home visit Karyn KANGW Work Phone: [facility] Comment on above: KILN LOADER CARE COORDINATIO N Start: 02-26-2023 Telephone encounter Bharat Price RN Work Phone: [facility] Comment on above: Home Care (Request f or home health aide referral.) Start: 02-25-2023 End: 02-25-2023 Home visit Karyn Vernon [employer] Work Phone: [facility] Comment on above: KILN LOADER CARE COORDINATIO N Start: 02-24-2023 Telephone encounter Tino Oreilly MD Work Phone: [facility] Comment on above: Patient Update Results Start: 02-23-2023 End: 02-23-2023 Home visit Zahra Jackson RN Work Phone: [facility] Comment on above: SN SOC Start: 02-21-2023 ambulatory Annie Borges [facility] Work Phone: [facility] Start: 02-21-2023 Telephone encounter Tino Oreilly MD Work Phone: [facility] Comment on above: Fax last Office Vist Notes Transition Of Care ( TCM Pharmacy-Hospital discharge 02/20/23) Transition Of Care ( TCM Initial [facility] Discharge 02/20/23/) Start: 02-20-2023 Telephone encounter Geeta Munguia LP N [facility] Comment on above: Home Care (MD to roxy norton) Start: 02-19-2023 Telephone encounter Tino Oreilly MD Work Phone: [facility] Comment on above: Results Orders Start: 02-19-2023 End: 02-20-2023 Evaluation and management of inpatient PANFILO OREILLY Facility:[facility] Start: 02-18-2023 End: 02-18-2023 Emergency department patient visit Dr. Tino Oreilly Work Phone: [facility]-Emergency Department Start: 02-18-2023 End: 02-18-2023 Dr. Tino Oreilly Work Phone: [facility]gency [facility] Start: 02-18-2023 End: 02-19-2023 Patient encounter procedure Panfilo Oreilly MD Work Phone: [facility] Comment on above: Abscess of groin, le ft (Primary Dx); Non-healing open wound of left groin, initial encounter; Necrotizing soft tissue infection; Cellulitis of skin; Type 2 diabetes mellitus with diabetic polyneuropathy, with long-term current use of insulin (HCC) Start: 02-07-2023 Telephone encounter Tino Oreilly MD Work Phone: [facility] Comment on above: Stage II pressure so re Start: 02-04-2023 Telephone encounter Tino Oreilly MD Work Phone: [facility] Comment on above: [facility] PT Order Request Start: 02-03-2023 Refill Panfilo Oreilly MD Work Phone: [facility] [place] Comment on above: Refill Request Appointment Start: 01-30-2023 Telephone encounter Tino Oreilly MD Work Phone: [facility] Comment on above: Appointment Start: 01-28-2023 ambulatory Raquel Payne RN [facility] Start: 01-28-2023 Follow-up encounter Raquel ortega RN [employer] [facility] Comment on above: Transition Of Care ( TCM follow up/) Start: 01-21-2023 Telephone encounter Tino Oreilly MD Work Phone: [facility] Comment on above: Shelter Start: 01-20-2023 Telephone encounter Brandi Fernando MD Work Phone: [facility] Comment on above: Refill Request Start: 01-17-2023 Patient Outreach Brissa Martinezericka white [facility] Work Phone: Pharmacy Comment on above: Transition Of Care ( TCM Pharmacy-Hospital discharge 01/16/23/) Start: 01-15-2023 Telephone encounter Tino Oreilly MD Work Phone: [facility] Comment on above: Patient Update Start: 01-14-2023 ambulatory Mimi Crowley RN [facility] Start: 01-14-2023 Follow-up encounter Mimi Crowley RN [employer] Service Technician Management Comment on above: Transition Of Care ( TCM follow-up readmitted to hospital) Start: 01-14-2023 Telephone encounter [facility] Comment on above: Appointment Start: 01-13-2023 End: 01-16-2023 Evaluation and management of inpatient ZACKERY LEBLANC Facility:[facility] Start: 01-13-2023 End: 01-13-2023 ambulatory PANFILO OREILLY Facility:[facility] Start: 01-12-2023 End: 01-13-2023 Emergency department patient visit Dr[facility] Start: 01-12-2023 End: 01-13-2023 Dr. T[facility]illy [facility] Start: 01-12-2023 End: 01-13-2023 Emergency department patient visit PANFILO OREILLY Facility:[facility] Start: 01-06-2023 Orders Only Panfilo heath MD Work Phone: [facility] Comment on above: Necrotizing soft tis jung infection Medication Request Patient Update Start: 01-03-2023 Refill Panfilo Oreilly MD Work Phone: [facility] Comment on above: Refill Request Start: 01-02-2023 Patient Outreach Brissa white [facility] Work Phone: Pharmacy Comment on above: Transition Of Care ( TCM Pharmacy-Hospital discharge 01/01/23/) Transition Of Care ( TCM initial outreach-dc'd from [facility] 01/01/23) Missed Appointment ( Pharmacy visit reschedule) Start: 12-31-2022 Refill Panfilo Oreilly MD Work Phone: [facility] Comment on above: Refill Request Start: 12-27-2022 Refill Anabella andujar APRN.[employer]IL TANK CAR CLEANER Work Phone: [facility] Comment on above: Refill Request Start: 12-26-2022 Telephone encounter [facility] Comment on above: Patient Update Start: 12-25-2022 ambulatory [place] AngelOIL TANK CAR CLEANER Work Phone: Critical Care Start: 12-25-2022 End: 01-01-2023 Evaluation and management of inpatient PANFILO OREILLY Facility:[facility] Start: 12-24-2022 End: 12-25-2022 Emergency department patient visit Dr. Tino Oreilly Work Phone: [facility] Start: 12-24-2022 End: 12-25-2022 Dr. Tino Oreilly Work Phone: [facility] Start: 12-24-2022 Telephone encounter Tino Oreilly MD Work Phone: [facility] Comment on above: Patient Update Start: 12-20-2022 Non-patient / Non-visit Dr. Moe Oreilly Work Phone: [facility] Start: 12-20-2022 Dr. Tino Oreilly Work Phone: [facility] Start: 12-19-2022 Non-patient / Non-visit Dr. Moe Oreilly Work Phone: [facility] Start: 12-19-2022 Dr. Tino Oreilly Work Phone: [facility] Start: 12-18-2022 Non-patient / Non-visit Dr. Moe Oreilly Work Phone: [facility] Start: 12-18-2022 End: 12-20-2022 Evaluation and management of inpatient Dr. Tino Oreilly [facility] Start: 12-18-2022 End: 12-20-2022 Dr. Tino Oreilly Work Phone[facility] Start: 12-12-2022 Refill Panfilo Oreilly MD Work Phone: [facility] Comment on above: Refill Request Medication Problem Start: 12-11-2022 End: 12-11-2022 ambulatory PANFILO OREILLY Facility:[facility] Start: 12-09-2022 End: 12-09-2022 Emergency department patient visit Dr. Tino Oreilly Work Phone: [facility] Start: 12-09-2022 End: 12-09-2022 Dr. Tino Oreilly Work Phone: [facility] Start: 12-05-2022 Telephone encounter Robert Pritchett [facility] Work Phone: [facility] Comment on above: Missed Appointment Start: 11-27-2022 Refill Panfilo Oreilly MD Work Phone: [facility] Comment on above: Refill Request Start: 11-11-2022 Telephone encounter Tino Oreilly MD Work Phone: [facility] Comment on above: Results Start: 11-08-2022 End: 11-08-2022 Patient encounter procedure Panfilo Oreilly MD Work Phone: [facility] Comment on above: Strep pharyngitis (P rimary Dx); Reactive airway disease with acute exacerbation, unspecified asthma severity, unspecified whether persistent; Tremor; LOGAN treated with BiPAP; Morbid obesity ([facility]); Type 2 diabetes mellitus with diabetic polyneuropathy, with long-term current use of insulin ([facility]); Episodic lightheadedness; Dehydration Start: 11-06-2022 End: [...] Telephone encounter Tino Oreilly MD Work Phone: [facility] Comment on above: Orders Start: 11-01-2022 End: 11-01-2022 Emergency department patient visit Dr. Tino Oreilly Work Phone: [facility] Start: 10-30-2022 End: 10-30-2022 [facility] Comment on above: Type 2 diabetes monse itus with diabetic polyneuropathy, with long-term current use of insulin (HCC) (Primary Dx); History of tobacco use Start: 10-30-2022 End: 10-30-2022 Telemedicine consultation with patient Robert [facility] Work Phone: [facility] Start: 10-22-2022 Telephone encounter Tino Oreilly MD Work Phone: [facility] Comment on above: Patient Update Start: 10-21-2022 Telephone encounter Tino Oreilly MD Work Phone: [facility] Comment on above: Results (No answer a nd VM not set up. Arrowsight message sent to request patient call in for results on Lab and xray.) Start: 10-18-2022 Telephone encounter Tino Oreilly MD Work Phone: [facility] Comment on above: Prescription Clarifi cation Start: 10-18-2022 End: 10-18-[address] Tino Oreilly Work Phone: [facility] Work Phone: Start: 10-18-2022 End: 10-18-[address] Tino Oreilly Work Phone: [facility]-Laboratory, Specimen Start: 10-18-2022 End: 10-18-2022 Subsequent hospital visit by physician Xr [facility] Work Phone: Radiology Comment on above: Acute diastolic CHF (congestive heart failure) (HCC) [I50.31] Start: 10-18-2022 End: 10-18-2022 Patient encounter procedure Panfilo Oreilly MD Work Phone: [facility] Comment on above: Acute diastolic CHF (congestive heart failure) (HCC) (Primary Dx); COPD with exacerbation (HCC); Bacterial pneumonia; Hypoxia; LOGAN treated with BiPAP; Bilateral lower extremity edema; Type 2 diabetes mellitus with diabetic polyneuropathy, with long-term current use of insulin (HCC); Other chest pain; Tremor; Tobacco use Start: 10-04-2022 Refill Panfilo Oreilly MD Work Phone: [facility] Comment on above: Refill Request Start: 09-25-[address] Endy Oreilly Work Phone: [facility]Patient Link Start: 09-24-2022 Non-patient / Non-visit Dr. Moe Oreilly Work Phone: [facility] Start: 09-23-2022 Non-patient / Non-visit Dr. Moe Oreilly Work Phone: [facility] Start: 09-22-2022 Non-patient / Non-visit Dr. Moe Oreilly Work Phone: [facility] Start: 09-22-2022 End: 09-24-2022 Evaluation and management of inpatient [facility] Start: 09-09-2022 Telephone encounter Tino Oreilly MD Work Phone: Internal Medicine [place] Comment on above: Medication Problem Start: 08-27-2022 Refill Panfilo Oreilly MD Work Phone: [facility] Comment on above: Refill Request Start: 08-01-2022 End: 08-01-2022 ambulatory Robert [facility] Work Phone: [facility] Comment on above: Diabetes resources Type 2 diabetes monse itus with diabetic polyneuropathy, with long-term current use of insulin (HCC) (Primary Dx) Start: 08-01-2022 E-mail encounter pierre altman caregiver Robert [facility] Work Phone: [facility] Start: 08-01-2022 End: 08-01-2022 Telemedicine consultation with patient Robert Sanchez [facility] Work Phone: [facility] Start: 07-24-2022 Refill Panfilo Oreilly MD Work Phone: [facility] Comment on above: Refill Request Start: 07-23-2022 End: 07-23-2022 Patient encounter procedure Berenice Bauman MD Work Phone: General Surgery Comment on above: Screening for colon cancer (Primary Dx); Chest pain, unspecified type; Morbid obesity (HCC) Start: 07-11-2022 Telephone encounter Robert orte[facility] Work Phone: [facility] Comment on above: Appointment Start: 07-09-2022 Telephone encounter Tino Oreilly MD Work Phone: [facility] Comment on above: Medication Problem ( Patient requesting all RX's for medications and diabetic supplies be sent to [facility] in [place].) Start: 07-09-2022 End: 07-09-2022 Subsequent hospital visit by physician Xr [facility] Work Phone: Radiology Comment on above: ov Start: 07-05-2022 Refill Hallie Martinez APRN.CNP Work Phone: [facility] Comment on above: Refill Request; Refi ll Request Start: 07-03-2022 Telephone encounter Tino Oreilly MD Work Phone: [facility] Comment on above: Forms (DM Supplies ) Start: 06-28-2022 Telephone encounter Tino Oreilly MD Work Phone: [facility] Comment on above: Appointment (patient past due for follow up- no show on 06/18/22) Start: 2022 Telephone encounter Robert ortega [facility] Work Phone: [facility] Comment on above: Missed Appointment Refill Request Start: 06-13-2022 Telephone encounter Robert ortega [facility] Work Phone: [facility] Comment on above: Missed Appointment Erroneous encounter- disregard Start: 06-05-2022 Refill Panfilo Oreilly MD Work Phone: [facility] Comment on above: Refill Request Start: 05-29-2022 ambulatory Panfilo Oreilly MD Work Phone: Internal Medicine [facility] Start: 05-02-2022 End: 05-02-2022 ambulatory Robert Sanchez [facility] Work Phone: [facility] Comment on above: Type 2 diabetes monse itus with diabetic polyneuropathy, with long-term current use of insulin (HCC) (Primary Dx) Start: 05-02-2022 End: 05-02-2022 Telemedicine consultation with patient Robert Sanchez [facility] Work Phone: [facility] Start: 05-01-2022 Refill Panfilo Oreilly MD Work Phone: [facility] Comment on above: Refill Request Start: 04-09-2022 Telephone encounter Tino Oreilly MD Work Phone: [facility] Comment on above: Patient Update Start: 04-03-2022 Telephone encounter Robert ortega [facility] Work Phone: [facility] Comment on above: Diabetes Start: 03-31-2022 End: 03-31-2022 Emergency department patient visit Dr. Tino [facility]reilly [facility] Start: 03-29-2022 Telephone encounter Robert ortega [facility] Work Phone: [facility] Comment on above: Medication Problem Start: 03-28-2022 Telephone encounter Tino Oreilly MD Work Phone: [facility] Comment on above: Patient Update; Medi cation Request Start: 03-28-2022 End: 03-28-2022 ambulatory Robert Sanchez [facility] Work Phone: [facility] Comment on above: Type 2 diabetes monse itus with diabetic polyneuropathy, with long-term current use of insulin (HCC) (Primary Dx) Start: 03-28-2022 End: 03-28-2022 Telemedicine consultation with patient Robert Sanchez [facility] Work Phone: [facility] Start: 03-20-2022 Telephone encounter Hallie hua APRN.[employer] T[employer] CLE[employer]ER Work Phone: [facility] Comment on above: Results Start: 03-19-2022 End: 03-19-2022 Patient encounter procedure Hallie Martinez APRN.[employer] T[employer] CLE[employer]ER Work Phone: [facility] Comment on above: Type 2 diabetes monse itus with diabetic polyneuropathy, with long-term current use of insulin ([facility]) (Primary Dx); Dysuria; LOGAN (obstructive sleep apnea); Essential hypertension; Chronic respiratory failure with hypoxia ([facility]); Hyperlipidemia, unspecified hyperlipidemia type Start: 03-05-2022 Telephone encounter Tino Oreilly MD Work Phone: [facility] Comment on above: insurance requests c hange insulin Start: 03-01-2022 Non-patient / Non-visit Dr. Moe Oreilly Work Phone: [facility] Start: 03-01-2022 End: 03-01-[address] Tino Oreilly Work Phone: [facility]Pulmonary Services/Neurology Start: 02-07-2022 End: 02-07-[address] T[facility]reilly [facility] Start: 01-29-2022 Telephone encounter Tino Oreilly MD Work Phone: [facility] Comment on above: Patient Request Start: 01-25-2022 Telephone encounter Hallie hua APRN.[employer] T[employer] CLE[employer]ER Work Phone: [facility] Comment on above: medication instructi ons Patient Request Medication Question Start: 01-23-2022 Telephone encounter Hallie hua APRN.[employer] T[employer] Work Phone: [facility] Comment on above: Orders Start: 01-17-2022 Non-patient / Non-visit Dr. Moe Oreilly Work Phone: [facility] Start: 01-16-2022 Non-patient / Non-visit Dr. Moe Oreilly Work Phone: [facility] Start: 01-15-2022 Non-patient / Non-visit Dr. Moe Oreilly Work Phone: [facility] Start: 01-15-2022 End: 01-18-2022 Evaluation and management of inpatient Dr. Tino Oreilly Work Phone: [facility] Start: 01-14-2022 Refill Panfilo Oreilly MD Work Phone: [facility] Comment on above: Refill Request (SEE RX NOTES) Start: 08-01-2021 End: 08-01-2021 Subsequent hospital visit by physician Xr [facility] Work Phone: Radiology Comment on above: Chronic respiratory failure with hypoxia (HCC) [J96.11] Start: 06-19-2021 Telephone encounter Tino Oreilly MD Work Phone: [facility] Comment on above: Insurance Authorizat [...] 04-23-2023 Plain chest X-ray Dr. Juan José rOeilly Work Phone: Start: 04-23-2023 Bacteria identified in [...] Comment: Speci men Type: BLOOD SPECIMENOrdering Facility: [facility] Address: [address] [place] [address] [place] [address] Performed By: #### T SCR ####[facility] BLOOD BANKIA [id number] [place] [address] [facility] Start: 12-24-2022 CT of [...] et rgnt auto w/o microscopy Hallie Podlogar SAUSAGE STRINGER.[employer] T[employer] CLE[employer] Work Phone: Start: 01-17-2022 Bacteria identified in [...] Dr. Tino Oreilly Work Phone: Dr. Tino Oerilly Work Phone: Dr. Tino Oreilly Work Phone: Dr. Tino Oreilly Work Phone: Plan of Treatment Date Care Activity Detail Author Start: 2042 PNEUMOCOCCAL (3 - PP SV23 if available, else PCV20) PNEUMOCOCCAL (3 - PPSV23 if available, else PCV20) [facility] Start: 2042 PNEUMOCOCCAL (3 - PP SV23 or PCV20) PNEUMOCOCCAL (3 - PPSV23 or PCV20) [facility] Start: 2042 Pneumococcal vaccination Pneum ococcal Vaccine (3 of 3 - PPSV23 or PCV20) [facility] Start: 07-01-2027 Urine microalbumin profile [facility] Start: 08-19-2025 Patient discharge [facility] Start: 08-19-2025 Consultation [facility] Start: 08-18-2025 [facility] Start: 08-17-2025 [facility] Start: 08-17-2025 Care regimes management [facility] Start: 08-17-2025 Notification of physician [facility] Start: 08-17-2025 [facility] Start: 08-17-2025 Referral to apparatus repair mechanic [facility] Start: 08-16-[address] [facility] Start: 08-16-2025 Following clinical pathway protocol [facility] Start: 08-16-2025 Application of elast ic bandage [facility] Start: 08-16-2025 Assessment of risk o f venous thromboembolism [facility] Start: 08-16-2025 Care regimes management [facility] Start: 08-16-2025 Consultation for treatment [facility] Start: 08-16-2025 Continuous pulse oximetry [facility] Start: 08-16-2025 Elevation of affecte d extremity [facility] Start: 08-16-2025 Fall prevention [facility] Start: 08-16-2025 Inhalation therapy procedure [facility] Start: 08-16-2025 Insertion of cathete r into peripheral vein [facility] Start: 08-16-2025 Introduction of urin shaina catheter [facility] Start: 08-16-2025 Measuring intake and output [facility] Start: 08-16-2025 Notification of physician [facility] Start: 08-16-2025 Oxygen therapy [facility] Start: 08-16-2025 Patient education [facility] Start: 08-16-2025 Patient referral to dietitian [facility] Start: 08-16-2025 Providing care accor ding to standard [facility] Start: 08-16-2025 Provision of activit y privileges [facility] Start: 08-16-2025 Referral for physica l therapy [facility] Start: 08-16-2025 Referral to occupati onal therapist [facility] Start: 08-16-[address] [facility] Start: 08-16-2025 Tobacco use cessatio n education [facility] Start: 08-16-2025 Wound care [facility] Start: 08-16-2025 End: 08-16-2025 [facility] Start: 08-16-2025 Dual pressure sponta neous ventilation support [facility] Start: 08-16-2025 Verification routine [facility] Start: 08-16-[address] [facility] Start: 08-16-2025 Hospital admission, emergency, from emergency room, medical nature [facility] Start: 08-16-2025 [facility] Start: 08-16-2025 Bacterial nucleic ac id assay [facility] Start: 08-16-2025 End: 08-16-2025 [facility] Start: 08-16-2025 Bacteria identified in Blood by Culture Blood Culture [facility] Start: 08-16-2025 Microscopic observat ion [Identifier] in Unspecified specimen by Gram stain [facility] Start: 08-16-2025 Skin and Soft Tissue MRSA/MSSA (PCR Skin and Soft Tissue MRSA/MSSA (PCR [facility] Start: 08-16-2025 Wound Culture Wound Culture [facility] Start: 08-16-2025 Patient referral to dietitian [facility] Start: 08-16-2025 [facility] Start: 08-01-2024 Covid-19 Vaccine ( season) Covid-19 Vaccine ( season) [facility] Start: 08-01-2024 Influenza vaccination Influenza Vacc ine (#1) [facility] Start: 06-24-2024 ANNUAL PCP TEAM FISH MACHINE FEEDER SHAY DISEASE VISIT ANNUAL PCP TEAM CHRONIC DISEASE VISIT [facility] Start: 06-24-2024 BP CONTROLLED (<130/80) BP CONTROLLE D (<130/80) [facility] Start: 05-02-2024 BP CONTROLLED (<130/80) BP CONTROLLE D (<130/80) [facility] Start: 04-28-2024 BP CONTROLLED (<130/80) BP CONTROLLE D (<130/80) [facility] Start: 04-02-2024 BP CONTROLLED (<130/80) BP CONTROLLE D (<130/80) [facility] Start: 03-28-2024 [facility] Start: 03-12-2024 BP CONTROLLED (<130/80) BP CONTROLLE D (<130/80) [facility] Start: 03-11-2024 ANNUAL PCP TEAM FISH MACHINE FEEDER SHAY DISEASE VISIT ANNUAL PCP TEAM CHRONIC DISEASE VISIT [facility] Start: 03-10-2024 BP CONTROLLED (<130/80) BP CONTROLLE D (<130/80) [facility] Start: 02-28-2024 BP CONTROLLED (<130/80) BP CONTROLLE D (<130/80) [facility] Start: 02-19-2024 ANNUAL PCP TEAM FISH MACHINE FEEDER SHAY DISEASE VISIT ANNUAL PCP TEAM CHRONIC DISEASE VISIT [facility] Start: 02-19-2024 BP CONTROLLED (<130/80) BP CONTROLLE D (<130/80) [facility] Start: 02-19-2024 Hepatitis B surface antibody level LDL CHOLESTEROL [facility] Start: 01-15-2024 [facility] Start: 01-13-2024 BP CONTROLLED (<130/80) BP CONTROLLE D (<130/80) [facility] Start: 12-25-2023 3 comp foot exam completed DIABETIC FOOT EXAM [facility] Start: 12-25-2023 Diabetic foot examination Diabetic F oot Exam [facility] Start: 12-01-2023 Depression Assessment Depression Ass essment [facility] Start: 11-08-2023 ANNUAL PCP TEAM FISH MACHINE FEEDER SHAY DISEASE VISIT ANNUAL PCP TEAM CHRONIC DISEASE VISIT [facility] Start: 11-08-2023 BP CONTROLLED (<130/80) BP CONTROLLE D (<130/80) [facility] Start: 10-18-2023 ANNUAL PCP TEAM FISH MACHINE FEEDER SHAY DISEASE VISIT ANNUAL PCP TEAM CHRONIC DISEASE VISIT [facility] Start: 10-18-2023 BP CONTROLLED (<130/80) BP CONTROLLE D (<130/80) [facility] Start: 09-25-2023 Vitamin B12 measurement [facility] Start: 09-24-2023 Hemoglobin A1c measurement HbA1C [facility] Start: 09-24-2023 Hemoglobin A1c/Hemoglobin.total in Blood HBA1C [facility] Start: 09-01-2023 Hemoglobin A1c/Hemoglobin.total in Blood HBA1C [facility] Start: 08-01-2023 Covid-19 Vaccine () Covid-19 Vaccine () [facility] Start: 08-01-2023 Influenza vaccination [facility] Start: 07-15-2023 Patient discharge [facility] Start: 07-14-2023 Oxygen therapy [facility] Start: 07-14-2023 Ambulation without limitation [facility] Start: 07-14-2023 Assessment of risk o f venous thromboembolism [facility] Start: 07-14-2023 Care regimes management [facility] Start: 07-14-2023 Fluid restriction [facility] Start: 07-14-2023 Insertion of cathete r into peripheral vein [facility] Start: 07-14-2023 Measuring intake and output [facility] Start: 07-14-2023 Notification of physician [facility] Start: 07-14-2023 Patient referral to dietitian [facility] Start: 07-14-2023 Providing care accor ding to standard [facility] Start: 07-14-2023 [facility] Start: 07-14-2023 Following clinical pathway protocol [facility] Start: 07-14-[address] [facility] Start: 07-14-2023 [facility] Start: 07-14-2023 Patient referral to dietitian [facility] Start: 07-09-2023 3 comp foot exam completed DIABETIC FOOT EXAM [facility] Start: 07-09-2023 ANNUAL PCP TEAM FISH MACHINE FEEDER SHAY DISEASE VISIT ANNUAL PCP TEAM CHRONIC DISEASE VISIT [facility] Start: 07-09-2023 Hepatitis B screening URINE ALBUMIN:CREATININE RATIO [facility] Start: 05-21-2023 Hemoglobin A1c/Hemoglobin.total in Blood HBA1C [facility] Start: 04-30-2023 HPV TESTING HPV TESTING [facility] Start: 04-30-2023 PAP TESTING PAP TESTING [facility] Start: 04-30-2023 Screening for malign ant neoplasm of cervix [facility] Start: 04-25-2023 Patient discharge [facility] Start: 04-25-2023 [facility] Start: 04-24-[address] [facility] Start: 04-24-2023 Care planning and pr oblem solving actions [facility] Start: 04-24-2023 Measuring intake and output [facility] Start: 04-24-2023 Fluid restriction [facility] Start: 04-23-2023 End: 04-24-2023 [facility] Start: 04-23-2023 Consultation for treatment [facility] Start: 04-23-2023 Following clinical pathway protocol [facility] Start: 04-23-2023 Assessment of risk o f venous thromboembolism [facility] Start: 04-23-2023 Care regimes management [facility] Start: 04-23-2023 Continuous pulse oximetry [facility] Start: 04-23-2023 Incentive spirometry [facility] Start: 04-23-2023 Inhalation therapy procedure [facility] Start: 04-23-2023 Insertion of cathete r into peripheral vein [facility] Start: 04-23-2023 Notification of physician [facility] Start: 04-23-2023 Oxygen therapy [facility] Start: 04-23-2023 Physiotherapy of chest [facility] Start: 04-23-2023 Providing care accor ding to standard [facility] Start: 04-23-2023 Provision of activit y privileges [facility] Start: 04-23-[address] [facility] Start: 04-23-2023 Wound care [facility] Start: 04-23-2023 Dual pressure sponta neous ventilation support [facility] Start: 04-23-[address] [facility] Start: 04-23-2023 Consultation [facility] Start: 04-23-2023 Patient referral to dietitian [facility] Start: 04-23-2023 [facility] Start: 03-19-2023 ANNUAL PCP TEAM FISH MACHINE FEEDER SHAY DISEASE VISIT ANNUAL PCP TEAM CHRONIC DISEASE VISIT [facility] Start: 03-11-2023 Blood chemistry [facility] Start: 03-10-2023 Blood chemistry [facility] Start: 03-09-2023 Blood chemistry [facility] Start: 03-08-2023 Blood chemistry [facility] Start: 03-07-2023 Blood chemistry [facility] Start: 03-05-2023 Patient discharge [facility] Start: 03-05-2023 Physiotherapy of chest [facility] Start: 03-04-2023 Care planning and pr oblem solving actions [facility] Start: 03-04-2023 [facility] Start: 03-03-2023 End: 03-03-2023 Referral to service [facility] Start: 03-03-2023 Patient referral to dietitian [facility] Start: 03-03-2023 [facility] Start: 03-02-2023 [facility] Start: 03-02-2023 End: 03-02-2023 [facility] [facility] Start: 03-02-2023 Following clinical pathway protocol [facility] Start: 03-02-2023 Assessment of risk o f venous thromboembolism [facility] Start: 03-02-2023 Care regimes management [facility] Start: 03-02-2023 Consultation [facility] Start: 03-02-2023 Consultation for treatment [facility] Start: 03-02-2023 Continuous pulse oximetry [facility] Start: 03-02-2023 Elevation of head of bed [facility] Start: 03-02-2023 Insertion of cathete r into peripheral vein [facility] Start: 03-02-2023 Measuring intake and output [facility] Start: 03-02-2023 Patient referral to dietitian [facility] Start: 03-02-2023 Providing care accor ding to standard [facility] Start: 03-02-2023 Referral to occupati onal therapist [facility] Start: 03-02-[address] [facility] Start: 03-02-2023 Vital signs measurements [facility] Start: 03-02-2023 Wound care [facility] Start: 03-02-[address] [facility] Start: 03-02-2023 End: 03-02-2023 Blood culture [facility] Start: 03-02-2023 Dual pressure sponta neous ventilation support [facility] Start: 03-02-2023 Inhalation therapy procedure [facility] Start: 02-18-2023 Blood culture [facility] Start: 02-09-2023 Hemoglobin A1c/Hemoglobin.total in Blood HBA1C [facility] Start: 02-06-2023 Hemoglobin A1c/Hemoglobin.total in Blood HBA1C [facility] Start: 01-23-2023 3 comp foot exam completed DIABETIC FOOT EXAM [facility] Start: 01-23-2023 ANNUAL PCP TEAM FISH MACHINE FEEDER SHAY DISEASE VISIT ANNUAL PCP TEAM CHRONIC DISEASE VISIT [facility] Start: 01-23-2023 BP CONTROLLED (<130/80) BP CONTROLLE D (<130/80) [facility] Start: 12-24-2022 End: 12-24-2022 Blood culture [facility] Start: 12-24-2022 [facility] Start: 12-20-2022 Patient discharge [facility] Start: 12-20-[address] [facility] Start: 12-20-2022 Consultation for treatment [facility] Start: 12-19-2022 Assessment of risk o f venous thromboembolism [facility] Start: 12-19-2022 Care regimes management [facility] Start: 12-19-2022 Continuous positive airway pressure ventilation treatment [facility] Start: 12-19-2022 Inhalation therapy procedure [facility] Start: 12-19-2022 Insertion of cathete r into peripheral vein [facility] Start: 12-19-2022 Notification of physician [facility] Start: 12-19-2022 Oxygen therapy [facility] Start: 12-19-2022 Providing care accor ding to standard [facility] Start: 12-19-2022 Provision of activit y privileges [facility] Start: 12-19-2022 Referral to occupati onal therapist [facility] Start: 12-19-[address] [facility] Start: 12-19-2022 [facility] Start: 12-19-2022 Following clinical pathway protocol [facility] Start: 12-19-2022 Patient referral to dietitian [facility] Start: 12-18-2022 Verification routine [facility] Start: 12-18-[address] [facility] Start: 12-12-2022 BP CONTROLLED (<130/80) BP CONTROLLE D (<130/80) [facility] Start: 12-12-2022 Hepatitis B surface antibody level LDL CHOLESTEROL [facility] Start: 12-09-2022 [facility] Start: 12-01-2022 DEPRESSION ASSESSMENT DEPRESSION ASS ESSMENT [facility] Start: 11-18-2022 End: 01-18-2023 Comprehensive metabolic 2000 panel - Serum or Plasma COMP METABOLIC PANEL Lab Routine KERRY (acute kidney injury) (HCC) Expected: 11/18/2022, Expires: 01/18/2023 [facility] Work Phone: Comment on above: Expected: 11/18/2022 , Expires: 01/18/2023 Start: 11-01-2022 [facility] Start: 10-31-2022 End: 12-31-2022 Basic metabolic 2000 panel - Serum or Plasma BASIC METABOLIC PNL Lab Routine Type 2 diabetes mellitus with diabetic polyneuropathy, with long-term current use of insulin (HCC) Expected: 10/31/2022, Expires: 12/31/2022 [facility] Work Phone: Comment on above: Expected: 10/31/2022 , Expires: 12/31/2022 Start: 10-09-2022 Hemoglobin A1c/Hemoglobin.total in Blood HBA1C [facility] Start: 09-25-2022 [facility] Work Phone: Start: 09-24-2022 Patient discharge [facility] Start: 09-23-2022 End: 09-24-2022 [facility] Start: 09-23-2022 Inhalation therapy procedure [facility] Start: 09-22-2022 Ambulation without limitation [facility] Start: 09-22-2022 Application of elast ic bandage [facility] Start: 09-22-2022 Assessment of risk o f venous thromboembolism [facility] Start: 09-22-2022 Care regimes management [facility] Start: 09-22-2022 Continuous pulse oximetry [facility] Start: 09-22-2022 Elevation of affecte d extremity [facility] Start: 09-22-2022 Elevation of head of bed [facility] Start: 09-22-2022 Fluid restriction [facility] Start: 09-22-2022 Incentive spirometry [facility] Start: 09-22-2022 Insertion of cathete r into peripheral vein [facility] Start: 09-22-2022 Measuring intake and output [facility] Start: 09-22-2022 Notification of physician [facility] Start: 09-22-2022 Oxygen therapy [facility] Start: 09-22-2022 Patient education [facility] Start: 09-22-2022 Physiotherapy of chest [facility] Start: 09-22-2022 Providing care accor ding to standard [facility] Start: 09-22-2022 Referral to occupati onal therapist [facility] Start: 09-22-[address] [facility] Start: 09-22-2022 End: 09-22-2022 [facility] Start: 09-22-2022 Dual pressure sponta neous ventilation support [facility] Start: 09-22-2022 Verification routine [facility] Work Phone: Start: 09-22-2022 End: 09-22-2022 Following clinical pathway protocol [facility] Start: 09-22-2022 Troponin I measurement [facility] Work Phone: Start: 09-22-[address] [facility] Start: 09-22-2022 [facility] Work Phone: Start: 09-22-2022 End: 09-22-2022 Blood culture [facility] Work Phone: Start: 09-22-2022 End: 09-23-2022 [facility] Start: 08-01-2022 Hepatitis B screening URINE ALBUMIN:CREATININE RATIO [facility] Start: 08-01-2022 Influenza vaccination INFLUENZA (#1) [facility] Start: 2022 COLOGUARD (FIT-DNA) COLOGUARD (FIT-D NA) [facility] Start: 2022 Colonoscopy COLONOSCOPY [facility] Start: 2022 COLORECTAL CANCER SCREENING COLORECTAL CANCER SCREENING [facility] Start: [address] [facility] Start: 2022 FECAL OCCULT BLOOD FECAL OCCULT BLOO D [facility] Start: 2022 Screening for malign ant neoplasm of colon [facility] Start: 2022 SIGMOIDOSCOPY SIGMOIDOSCOPY [facility] Start: 06-18-2022 End: 08-18-2022 Hemoglobin A1c/Hemoglobin.total in Blood [facility] Comment on above: Expected: 06/18/2022 , Expires: 08/18/2022 Start: 03-19-2022 End: 05-19-2022 Comprehensive metabolic 2000 panel - Serum or Plasma [facility] Work Phone: Comment on above: Expected: 03/19/2022 , Expires: 05/19/2022 Start: 03-19-2022 End: 05-19-2022 Hemoglobin A1c/Hemoglobin.total in Blood [facility] Work Phone: Comment on above: Expected: 03/19/2022 , Expires: 05/19/2022 Start: 03-15-2022 COVID-19 VACCINE (3 - Booster for Damir series) COVID-19 VACCINE (3 - Booster for Damir series) [facility] Start: 03-12-2022 Hemoglobin A1c/Hemoglobin.total in Blood HBA1C [facility] Start: 02-14-2022 Adult depression screening assessment DEPRESSION SCREENING [facility] Start: 12-01-2021 DEPRESSION ASSESSMENT DEPRESSION ASS ESSMENT [facility] Start: 10-09-2018 Mammography MAMMOGRAM [facility] Start: 10-09-2018 Screening for malign ant neoplasm of breast Mammogram Screening [facility] Start: 08-31-2016 TWO PNEUMOVAX 5 YEAR S APART PRIOR TO AGE 65 (#2) TWO PNEUMOVAX 5 YEARS APART PRIOR TO AGE 65 (#2) [facility] Start: 1996 HEPATITIS B (1 of 3 - Risk 3-dose series) HEPATITIS B (1 of 3 - Risk 3-dose series) [facility] Start: 1996 Hepatitis B Vaccine (1 of 3 - 19+ 3-dose series) Hepatitis B Vaccine (1 of 3 - 19+ 3-dose series) [facility] Start: 1995 Depression Screening Depression Scre ening [facility] Start: 1987 Glaucoma screening Dilated Retinal E xam [facility] Start: 1987 Hepatitis C antibody , confirmatory test [facility] Start: 1977 HEPATITIS B (1 of 3 - 3-dose series) HEPATITIS B (1 of 3 - 3-dose series) [facility] Bacteria identified in Blood by Culture Blood Culture [facility] Bacteria identified in Urine by Culture Urine Culture [facility] Work Phone: Bacteria identified in Wound by Culture ABSCESS AND WOUND CULTURE WITH GRAM STAIN Microbiology Routine Abscess of groin, left Non-healing open wound of left groin, initial encounter 02/18/2023 12:05 PM EDT [facility] Work Phone: Bilirubin measuremen t, urine [facility] Blood culture [facility] Work Phone: End: 10-18-2023 ECG COMPLETE ECG COMPLETE ECG Routine Acute diastolic CHF (congestive heart failure) (HCC) Other chest pain 1 Occurrences starting 10/18/2022 until 10/18/2023 [facility] Work Phone: Comment on above: 1 Occurrences starti ng 10/18/2022 until 10/18/2023 End: 11-08-2023 EPIL EEG ROUTINE EPIL EEG ROUTINE NEUROLOGY TACO Tremor 1 Occurrences starting 11/08/2022 until 11/08/2023 [facility] Work Phone: Comment on above: 1 Occurrences starti ng 11/08/2022 until 11/08/2023 Ferritin [Mass/volum e] in Serum or Plasma [facility] Folate [Mass/volume] in Serum or Plasma [facility] Hemoglobin [Presence ] in Urine [facility] Iron [Mass/mass] in Unspecified specimen [facility] Iron and Iron bindin g capacity panel - Serum or Plasma [facility] Iron saturation [Mas s Fraction] in Serum or Plasma [facility] Magnesium measurement [facility] End: 05-29-2024 SHERYL SCREENING SHERYL SCREENING Radiology Routine Encounter for screening mammogram for breast cancer 1 Occurrences starting 04/30/2023 until 05/29/2024 [facility] Work Phone: Comment on above: 1 Occurrences starti ng 04/30/2023 until 05/29/2024 Measurement of keton es in urine using dipstick [facility] Microbial culture, routine [facility] Microscopic urinalysis [facility] End: 11-17-2023 NM CARDIAC PERF STRESS/PHARM NM CARDIAC PERF STRESS/PHARM Radiology TACO Acute diastolic CHF (congestive heart failure) (HCC) 1 Occurrences starting 10/18/2022 until 11/17/2023 [facility] Work Phone: Comment on above: 1 Occurrences starti ng 10/18/2022 until 11/17/2023 OCCULT BLD EXAM-DIAG OCCULT BLD EXAM-DIAG Microbiology Routine Screening for colon cancer Ordered: 07/23/2022 [facility] Work Phone: Comment on above: Ordered: 07/23/2022 Patient Education [facility] Work Phone: Patient referral [facility] Work Phone: pH of Urine [facility] End: 11-06-2023 PVR ANK PRESS [facility]AY [facility]K [facility] Vascular Lab Routine Onychomycosis Other diabetic neurological complication associated with type 2 diabetes mellitus (HCC) Diminished pulses in lower extremity 1 Occurrences starting 11/06/2022 until 11/06/2023 [facility] Work Phone: Comment on above: 1 Occurrences starti ng 11/06/2022 until 11/06/2023 Respiratory microbia l culture Respiratory Culture [facility] Work Phone: End: 06-28-2023 Screening mammography bi 2-view breast inc cad SHERYL SCREENING Radiology Routine Encounter for screening mammogram for breast cancer 1 Occurrences starting 05/29/2022 until 06/28/2023 [facility] Work Phone: Comment on above: 1 Occurrences starti ng 05/29/2022 until 06/28/2023 Specific gravity of Urine [facility] Troponin I measurement [facility] Work Phone: UA DIP, URINE (POC) UA DIP, URIN E (POC) Lab Routine Dysuria Ordered: 03/19/2022 [facility] Work Phone: Comment on above: Ordered: 03/19/2022 Urinalysis, blood, qualitative [facility] Urine culture Urine Culture [facility] Work Phone: Urine dipstick for glucose [facility] Urine dipstick for leukocyte esterase [facility] Urine dipstick for nitrite [facility] Urine dipstick for protein [facility] Urine examination [facility] Urine microscopy: epithelial cells [facility] Urine Microscopy: wh ite cells [facility] Urobilinogen [Presen ce] in Urine [facility] Wound microscopy, cu lture and sensitivities [facility] [place] OR [facility] Immunizations Immunization Date Immunization Notes Care Provider [facility] 11-10-2024 influenza, seasonal, injectable, preservative free Delmy Solorzano MD Work Phone: [facility] 09-24-2022 influenza, injectabl e, quadrivalent, preservative free Dr. Tino Oreilly Work Phone: [facility] 09-24-2022 influenza, seasonal, injectable Dr. Tino Oreilly Work Phone: [facility] 09-24-2022 influenza virus vaccine, unspecified formulation Malka Mas LPN [facility] 01-18-2022 Covid (Moderna) Dr. Margaux Oreilly Work Phone: [facility] 01-16-2022 influenza, injectabl e, quadrivalent, preservative free Dr. Tino Oreilly Work Phone: [facility] 01-16-2022 influenza, seasonal, injectable Dr. Tino Oreilly Work Phone: [facility] 12-12-2021 influenza, injectabl e, quadrivalent, contains preservative Panfilo Oreilly MD Work Phone: [facility] 07-18-2021 Covid ([employer]) Dr. Tino Oreilly Work Phone: [facility] 08-31-2020 influenza, injectabl e, quadrivalent, contains preservative Panfilo Oreilly MD Work Phone: [facility] 08-31-2020 pneumococcal conjuga te vaccine, 13 valent Panfilo Oreilly MD Work Phone: [facility] 11-12-2019 influenza, injectabl e, quadrivalent, contains preservative Panfilo Oreilly MD Work Phone: [facility] 12-16-2018 influenza, injectabl e, quadrivalent, preservative free Dr. Tino Oreilly Work Phone: [facility] 12-16-2018 influenza, seasonal, injectable Dr. Tino Oreilly Work Phone: [facility] 12-16-2018 influenza, seasonal, injectable, preservative free Panfilo Oreilly MD Work Phone: [facility] 09-11-2017 influenza, injectabl e, quadrivalent, preservative free Dr. Tino Oreilly Work Phone: [facility] 09-11-2017 influenza, seasonal, injectable Panfilo Oreilly MD Work Phone: [facility] 09-11-2017 influenza, seasonal, injectable, preservative free Panfilo Oreilly MD Work Phone: [facility] 07-01-2017 tetanus toxoid, redu rauna diphtheria toxoid, and acellular pertussis vaccine, adsorbed Panfilo Oreilly MD Work Phone: [facility] 12-20-[address] Tino Oreilly Work Phone: [facility] 12-20-2013 influenza, seasonal, injectable Panfilo Oreilly MD Work Phone: [facility] 12-20-2013 influenza, seasonal, injectable, preservative free Panfilo Oreilly MD Work Phone: [facility] 08-31-2011 pneumococcal polysaccharide vaccine, 23 valent Panfilo Oreilly MD Work Phone: [facility] 08-31-[address] Fela Oreilly Work Phone: [facility] Work Phone: 08-31-2011 pneumococcal vaccine , unspecified formulation Dr. Tino Oreilly Work Phone: [facility] Payers Date Payer Category Payer Unknown [id number] 2024 Self-pay [id number] 2024 Private Health Insurance [id number] 2023 Unknown [id number] 2022 Medicaid [employer] [id number] 2022-2022 [address] [place] [address] Medicaid [id number] 2022 Medicare [id number] 2022 Medicaid MEDICAID [facility] MEDICAID [id number] 2022-2022 [address] [place] [address] Medicaid [id number] 2022 Medicaid [id number] 2021 Medicare MEDICARE MEDICAR E A AND B [id number] 2021-2021 [place] [address] Medicare [id number] 2021 Medicare [id number] 2016 Medicaid [id number] 2016 Unknown [id number] Medicare [id number] Medicare [id number] Private Health Insurance [facility] [id number] Unknown [id number] Unknown [id number] 462 Unknown [id number] 462 Unknown [id number] 462 Unknown [id number]. 462 Unknown [id number]. 462 Unknown [id number]. 462 Unknown [id number]. 462 Unknown [id number] 462 Unknown [id number]. 462 Unknown [id number] 462 Unknown [id number] 462 Unknown [id number]. 462 Unknown [id number] 462 Unknown [id number] 462 Unknown [id number] 462 Social History Date Type Detail Facility Start: 09-08-1996 End: 10-18-2022 Tobacco smoking status IAIS Smokes tobacco daily [facility] Start: 09-08-1996 End: 09-08-2017 History of tobacco use Cigarette Smoker [facility] Start: 08-25-2019 End: 11-05-2020 Cigarettes smoked current (pack per day) - Reported 1 [facility] Start: 08-25-2019 End: 07-09-2022 Tobacco use and exposure Smokeless tobacco non-user [facility] Start: 08-01-2021 End: 12-12-2021 Alcohol intake Current drinker of alcohol (finding) [facility] Start: 04-03-2017 History SDOH Alcohol Comment rarely [facility] Start: 1975 Sex Assigned At Not on file [facility] Start: 01-06-2022 End: 10-18-2022 Exposure to SARS-CoV-2 (event) Not sure [facility] Start: 02-07-2022 End: 03-27-2024 Tobacco smoking status IAIS Unknown if ever smoked [facility] Start: 02-15-2020 None [facility] Start: 11-25-2019 With Family [facility] Start: 04-21-2020 Cigarettes [facility] Start: 1975 Sex Assigned At Female [facility] Start: 01-23-2022 End: 08-17-2025 Tobacco smoking status NHIS Ex-smoker [facility] Start: 01-23-2022 End: 07-09-2022 Tobacco Comment d/c x2 wks [facility] Start: 04-03-2017 Tobacco Comment failed patches in the past [facility] History of tobacco use Current smoker [facility] Start: 07-22-2022 End: 08-01-2022 Exposure to SARS-CoV-2 (event) Yes [facility] Start: 06-24-2021 End: 09-02-2022 Exposure to SARS-CoV-2 (event) Unable to assess [facility] Start: 10-17-2022 End: 01-15-2023 History SDOH Alcohol Frequency 1 [facility] Start: 10-17-2022 End: 11-02-2022 History SDOH Alcohol Std Drinks 0 [facility] Start: 10-17-2022 End: 01-15-2023 History SDOH Social Connections Phone 5 [facility] Start: 10-17-2022 End: 01-15-2023 History SDOH Social Connections Get Together 2 [facility] Start: 10-17-2022 End: 11-02-2022 History SDOH Social Connections Living 7 [facility] Start: 10-17-2022 End: 11-02-2022 History SDOH Physical Activity DPW 3 [facility] Start: 10-17-2022 History SDOH Financial 4 [facility] Start: 01-14-2023 End: 02-18-2023 Alcohol intake Ex-drinker (finding) [facility] Start: 11-05-2020 End: 11-02-2022 Social connection and isolation panel [facility] Do you belong to any clubs or organizations such as gnosticist groups, unions, fraternal or athletic groups, or school groups? No [facility] Are you now , , , , never or living with a partner? Never [facility] How often to you hav e a drink containing alcohol? Never [facility] How many standard dr inks containing alcohol do you have on a typical day? Patient does not drink [facility] Do you feel stress - tense, restless, nervous, or anxious, or unable to sleep at night because your mind is troubled all the time - these days [OSQ] Very much [facility] (I/We) worried wheth er (my/our) food would run out before (I/we) got money to buy more. Never true [facility] Work Phone: How hard is it for y ou to pay for the very basics like food, housing, medical care, and heating Not very hard [facility] (I/We) worried wheth er (my/our) food would run out before (I/we) got money to buy more. Sometimes true [facility] NEGATED: Highlighted row [facility] Medical Equipment Procedure Code Equipment Code Equipment Original Text Equipment Identifier Dates [id number], [id number], [id number], [id number], [id number], [id number], [id number] Start: 04-07-2018 End: 07-08-2023 Comment on above: [...] Assessment Result Facility 08-19-2025 Functional status Ambulates [facility] Work Phone: 07-15-2023 Functional status Ambulates [facility] Work Phone: 04-25-2023 Functional status Ambulates;Bathroom Priv ilege [facility] Work Phone: 03-05-2023 Functional status Ambulates;Venu r;Bedside Commode [facility] Work Phone: 12-20-2022 Functional status Bedrest [facility] Work Phone: 09-24-2022 Functional status Ambulates [facility] Work Phone: 01-18-2022 Functional status Chair [facility] Work Phone: Mental Status Date Assessment Result Facility 08-19-2025 Cognitive function Voice/Name [facility] Work Phone: 08-16-2025 Cognitive function Level Of Cons ciousness Awake;Alert;Appropriate;Follow s Commands [facility] Work Phone: 03-27-2024 Cognitive function Level Of Cons ciousness Awake;Alert;Appropriate [facility] Work Phone: 07-14-2023 Cognitive function Voice/Name [facility] Work Phone: 07-14-2023 Cognitive function Voice/Name [facility] Work Phone: 04-25-2023 Cognitive function Voice/Name [facility] Work Phone: 03-05-2023 Cognitive function Voice/Name [facility] Work Phone: 12-20-2022 Cognitive function Voice/Name [facility] Work Phone: 12-18-2022 Cognitive function Level Of Cons ciousness Awake;Alert;Appropriate;Follow s Commands [facility] Work Phone: 12-09-2022 Cognitive function Voice/Name [facility] Work Phone: 09-24-2022 Cognitive function Voice/Name [facility] Work Phone: 09-22-2022 Cognitive function Awake;Alert;A ppropriate;Follow s Commands [facility] Work Phone: 03-31-2022 Cognitive function Awake;Alert;Appropriat e [facility] Work Phone: 01-18-2022 Cognitive function Voice/Name [facility] Work Phone: Clinical Notes 11-06-2007 to 08-19-2025 Note Date & Type Note Facility 08-19-2025 Consult note [facility] 08-19-2025 Discharge summary Note Date/Time August 19, 2025 11:58am [facility] Medical Records Department [address] [place] [address] Discharge Summary 08/19/25 1150 MR#: [id number] Acct: [id number] Name: MACARIO WALLACE Rep #:[id number] : 1975 50 From: Jersey Pradhan MD PCP: Dr. Delmy Solorzano MD Status:ADM IN Location: [place] [address] Providers Date of Admission: 08/16/25 Primary Care Physician: Delmy Solorzano MD Consultations 08/16/25 22:51 Consult: Onc/Wound/home theater experience expert Routine Comment: Reason for Consult:: BL LE [...] % (Auto) 63.3, Lymph % (Auto) 25.6, [place] % (Auto) 6.0, Eos % (Auto) 3.2, [...] 80 mg tablet 80 mg PO QHS beqqrwmr-dbxw-SJ-calcium-mins 1 EACH tablet 1 ea PO DAILY [...] Qty: 14 0RF Referrals / Follow Up: eDlmy Solorzano MD [Primary Care Provider, Family Practice] - Within 1 Week Norman Mcclendon DPM [Med Staff - Courtesy Staff, Podiatry] - Within 1 Week Disposition Disposition (needs filled in before D/C Order can be placed): Home, Self Care Charges/Coding Visit Charges Inpatient E&M: 10350 Disch Hosp >30min 08/19/25 1158 <Electronically signed by Jersey Pradhan MD> Cosigner Signature (if applicable): CC: Dr. Delmy Solorzano MD; Dr. Jersey Pradhan MD~ Signed [facility] Work Phone: 1(754) 656-226309-19-2025 Consult note Author Cody Gonzalez [facility] Note Date/Time August 19, 2025 11:00am [facility] Medical Records Department [address] [place] [address] [place] [address] Consultation - Infectious Dx 08/19/25 1056 MR#: [id number] Acct: [id number] Name: MACARIO WALLACE Rep #:[id number] : 1975 50 From: Cody peralta MD PCP: Dr. Delmy Solorzano MD Status:ADM IN Location: [place] [address] Assessment & Plan Assessment/Plan (1) Skin ulcer [...] performed and neg except as noted above. [facility] Medical History Cellulitis of leg MRSA [...] 2.5 mg/3 mL 2.5 mg inhalation Q4H [place] SOB 12/09/22 07/10/23 History (0.083 %) [...] % (Auto) 63.3, Lymph % (Auto) 25.6, [place] % (Auto) 6.0, Eos % (Auto) 3.2, [...] applicable): CC: Dr. Delmy Solorzano MD~ Signed [facility] Work Phone: 1(614) 932-172009-19-2025 Progress note Author Jersey Pradhan [facility] Note Date/Time August 19, 2025 10:14am [facility] Medical Records Department [address] [place] [address] Progress Note - Hospitalist 08/19/25 0750 MR#: [id number] Acct: [id number] Name: MACARIO WALLACE Rep #:[id number] : 1975 50 From: Jersey Pradhan MD PCP: Dr. Delmy Solorzano MD Status:ADM IN Location: [place] [address]- Reason for Visit Chief Complaint: Worsening LE [...] RDW Std Deviation 43.4, RDW Coeff of Drarion 13.2, Plt Count 277, MPV 10.0, Immature Gran % (Auto) 1.000 H, Neut % (Auto) 63.3, Lymph % (Auto) 25.6, [place] % (Auto) 6.0, Eos % (Auto) 3.2, [...] 08/19/25 at 1014 Visit Charges Inpatient E&M: 96102 Subs Hosp L2 08/19/25 1014<Electronically signed by Jersey Pradhan MD> Cosigner Signature (if applicable): cc: ~* Signed [facility] Work Phone: 1(509) 925-815209-19-2025 Discharge summary [facility] Medical Records Department [address] [place] [address] Discharge Summary 08/19/25 1150 MR#: [id number] Acct: [id number] Name: MACARIO WALLACE KENJI Rep #:[id number] : 1975 50 From: Jersey Pradhan MD PCP: Dr. Delmy Solorzano MD Status:[facility] Providers Date of Admission: 08/16/25 Primary Care Physician: Delmy Solorzano MD Consultations 08/16/25 22:51 Consult: Onc/Wound/home theater experience expert Routine Comment: Reason for Consult:: BL LE [...] % (Auto) 63.3, Lymph % (Auto) 25.6, [place] % (Auto) 6.0, Eos % (Auto) 3.2, [...] 80 mg tablet 80 mg PO QHS dakpfndn-dfrg-IC-calcium-mins 1 EACH tablet 1 ea PO DAILY [...] Self Care Charges/Coding Visit Charges Inpatient E&M: 60368 Disch Hosp >30min 08/19/25 1158 Cosigner Signature (if applicable): CC: Dr. Delmy Solorzano MD; Dr. Jersey Pradhan MD~ Signed [facility]09-19-2025 Consult note [facility] Medical Records Department [address] [place] [address] Consultation - Infectious Dx 08/19/25 1056 MR#: [id number] Acct: [id number] Name: MACARIO WALLACE Rep #:[id number] : 1975 50 From: Cody peralta MD PCP: Dr. Delmy Solorzano MD Status:ADM IN Location: [facility] [id number]- 1 Assessment & Plan Assessment/Plan (1) Skin [...] performed and neg except as noted above. [facility] Medical History Cellulitis of leg MRSA [...] 2.5 mg/3 mL 2.5 mg inhalation Q4H [place] SOB 12/09/22 07/10/23 History (0.083 %) [...] % (Auto) 63.3, Lymph % (Auto) 25.6, [place] % (Auto) 6.0, Eos % (Auto) 3.2, [...] applicable): CC: Dr. Delmy Solorzano MD~ Signed [facility]09-19-2025 Progress note [facility] Medical Records Department [address] [place] [address] Progress Note - Hospitalist 08/19/250 MR#: [id number] Acct: [id number] Name: MACARIO WALLACE Rep #:[id number] : 1975 50 From: Jersey Pradhan MD PCP: Dr. Delmy Solorzano MD Status:ADM IN Location: [place] [address] 1 Reason for Visit Chief Complaint: Worsening [...] % (Auto) 63.3, Lymph % (Auto) 25.6, [place] % (Auto) 6.0, Eos % (Auto) 3.2, [...] 08/19/25 at 1014 Visit Charges Inpatient E&M: 47982 Subs Hosp L2 08/19/25 1014 Cosigner Signature (if applicable): cc: ~* Signed [facility]09-19-2025 Consult note Author Ryan Avina [facility] Note Date/Time August 19, 2025 6:12am [facility] Medical Records Department [address] [place] [address] Pharmacokinetic/Renal -Consult 08/19/25 0611 MR#: [id number] Acct: [id number] Name: MACARIO WALLACE Rep #:[id number] : 1975 50 From: Ryan Hernandes od PCP: Dr. Delmy Solorzano MD Status:ADM IN Y Location: [place] [address] Consult Antibiotic Management Pharmacy has been consulted [...] Signature (if applicable): Date CC: ~ Signed [facility] Work Phone: 1([phone] 742-286909-19-2025 Consult note [facility] Medical Records Department [address] [place] [address] Pharmacokinetic/Renal -Consult 08/19/25 06 MR#: [id number] Acct: [id number] Name: MACARIO WALLACE Rep #:[id number] : 1975 50 From: Ryan Hernandes od PCP: Dr. Delmy Solorzano MD Status:ADM IN Location: [place] [address] Consult Antibiotic Management Pharmacy has been consulted [...] Signature (if applicable): Date CC: ~ Signed [facility]09-18-2025 Consult note Author Norman Mcclendon [facility] Note Date/Time August 18, 2025 5:58pm [facility] Medical Records Department [address] [place] [address] Consultation 08/18/25 1748 MR#: [id number] Acct: [id number] Name: MACARIO WALLACE Rep #:[id number] : 1975 50 From: Norman Altman PCP: Dr. Delmy Solorzano MD Status:ADM IN Location: [place] [address] Assessment & Plan Assessment/Plan (1) Cellulitis of [...] WALLACE, is a 50 F who presents [facility] Medical History (Updated 08/18/25 @ 17:57 [...] 2.5 mg/3 mL 2.5 mg inhalation Q4H [place] N SOB 12/09/22 07/10/23 History (0.083 %) [...] % (Auto) 64.0, Lymph % (Auto) 26.4, [place]% (Auto) 5.0, Eos % (Auto) 3.2, Baso [...] applicable): CC: Dr. Delmy Solorzano MD~ Signed [facility] Work Phone: [phone] 773-852709-18-2025 Consult note [facility] Medical Records Department [address] [place] [address] Consultation 08/18/25 1748 MR#: [id number] Acct: [id number] Name: MACARIO WALLACE Rep #:[id number] : 1975 50 From: Norman Altman PCP: Dr. Delmy Solorzano MD Status:ADM IN Location: [place] [address] Assessment & Plan Assessment/Plan (1) Cellulitis of [...] WALLACE, is a 50 F who presents [facility] Medical History (Updated 08/18/25 @ 17:57 [...] 2.5 mg/3 mL 2.5 mg inhalation Q4H [place] N SOB 12/09/22 07/10/23 History (0.083 %) [...] Neut% (Auto) 64.0, Lymph % (Auto) 26.4, [place]% (Auto) 5.0, Eos % (Auto) 3.2, Baso [...] applicable): CC: Dr. Delmy Solorzano MD~ Signed [facility]09-18-2025 [facility] Medical Records Department [address] [place] [address] Consultation 08/18/25 1748 MR#: [id number] Acct: [id number] Name: MACARIO WALLACE Rep #: [id number] : 1975 50 From: Norman Mcclendon DPM PCP: Dr. Delmy Solorzano MD Status:ADM IN Location: [place] [address] Assessment Plan Assessment/Plan (1) Cellulitis of leg: [...] WALLACE, is a 50 F who presents [facility] Medical History (Updated 08/18/25 @ 17:57 [...] Max U-300 [employer]Star) semag (more content not included)...[facility]09-18-2025 Progress note Author Jersey Pradhan [facility] Note Date/Time August 18, 2025 9:19am [facility] Medical Records Department [address] [place] [address] Progress Note - Hospitalist 08/18/25 0738 MR#: [id number] Acct: [id number] Name: MACARIO WALLACE Rep #:[id number] : 1975 50 From: Jersey Pradhan MD PCP: Dr. Delmy Solorzano MD Status:ADM IN Location: [place] [address] Reason for Visit Chief Complaint: Worsening LE [...] % (Auto) 64.0, Lymph % (Auto) 26.4, [place]% (Auto) 5.0, Eos % (Auto) 3.2, Baso [...] prominent overlying the great toe. Reading Location: [place] [address] Physical Exam Narrative GENERAL: dyspneic at rest [...] 40 Minutes Charges/Coding Visit Charges Inpatient E&M: 46708 Subs Hosp L2 08/18/25 0919 <Electronically signed by Jersey Pradhan MD> Cosigner Signature (if applicable): CC: ~ Signed [facility] Work Phone: 1(790) 890-191009-18-2025 Progress note [facility] Medical Records Department [address] [place] [address] Progress Note - Hospitalist 08/18/25 0738 MR#: [id number] Acct: [id number] Name: MACARIO WALLACE Rep #:[id number] : 1975 50 From: Jersey Pradhan MD PCP: Dr. Delmy Solorzano MD Status:ADM IN Location: [place] [address]- 1 Reason for Visit Chief Complaint: Worsening [...] Neut% (Auto) 64.0, Lymph % (Auto) 26.4, [place]% (Auto) 5.0, Eos % (Auto) 3.2, Baso [...] prominent overlying the great toe. Reading Location: [place] [address] Physical Exam Narrative GENERAL: dyspneic at rest [...] 40 Minutes Charges/Coding Visit Charges Inpatient E&M: 10288 Subs Hosp L2 08/18/25 0919 Cosigner Signature (if applicable): CC: ~ Signed [facility]09-18-2025 Consult note Author Ryan Avina [facility] Note Date/Time August 18, 2025 6:17am [facility] Medical Records Department [address] [place] [address] Pharmacokinetic/Renal -Consult 08/18/25 0616 MR#: [id number] Acct: [id number] Name: MACARIO WALLAEC Rep #:[id number] : 1975 50 From: yRan Hernandse od PCP: Dr. Delmy Solorzano MD Status:ADM IN Y Location: [place] [address] Consult Antibiotic Management Pharmacy has been consulted [...] Signature (if applicable): Date CC: ~ Signed [facility] Work Phone: 1([phone]) 844-834309-18-2025 Consult note [facility] Medical Records Department [address] [place] [address] Pharmacokinetic/Renal -Consult 08/18/25615 MR#: [id number] Acct: [id number] Name: MACARIO WALLACE Rep #:[id number] : 1975 50 From: Ryan Hernandes od PCP: Dr. Delmy Solorzano MD Status:ADM IN Location: [place] [address] Consult Antibiotic Management Pharmacy has been consulted [...] Signature (if applicable): Date CC: ~ Signed [facility]09-17-2025 Consult note Author Ryan Avina [facility] Note Date/Time August 17, 2025 9:32pm [facility] Medical Records Department [address] [facility] [address] Pharmacokinetic/Renal -Consult 08/17/25 2131 MR#: [id number] Acct: [id number] Name: MACARIO WALLACE Rep #:[id number] : 1975 50 From: Ryan Hernandes od PCP: Dr. Delmy Solorzano MD Status:ADM IN Y Location: [place] [address] Consult Antibiotic Management Pharmacy has been consulted [...] Signature (if applicable): Date CC: ~ Signed [facility] Work Phone: 1(752) 621-337109-17-2025 Consult note [facility] Medical Records Department [address] [place] [address] Pharmacokinetic/Renal -Consult 08/17/25 2131 MR#: [id number] Acct: [id number] Name: MACARIO WALLACE Rep #:[id number] : 1975 50 From: Ryan Hernandes od PCP: Dr. Delmy Solorzano MD Status:ADM IN Location: [place] [address] Consult Antibiotic Management Pharmacy has been consulted [...] Signature (if applicable): Date CC: ~ Signed [facility]09-17-2025 Radiology Diagnostic study note [facility] Imaging Services [address] [place], [place] [id number] Foot 2 Views MR#: [id number] Acct: [id number] Name: MACARIO WALLACE Rep #: [id number] : 1975 F 50 From: Jatin Gan MD PCP: Dr. Delmy Solorzano MD Status: ADM IN Study:Foot 2 Views Date of Exam: 5 Exam# [id number] Ordering Dr: Steve Pradhan MD PROCEDURE: FOOT [...] prominent overlying the great toe. [facility] CC: Dr. Delmy Solorzano MD; Dr. Jersey Pradhan MD ~ Team Foreman: Signed [facility]09-17-2025 Progress note Author Jersey Pradhan [facility] Note Date/Time August 17, 2025 8:22am [facility] Medical Records Department [address] [place] [address] Progress Note - Hospitalist 08/17/25 0659 MR#: [id number] Acct: [id number] Name: MACARIO WALLACE Rep #:[id number] : 1975 50 From: Jersey Pradhan MD PCP: Dr. Delmy Solorzano MD Status:ADM IN Location: [place] [address] Reason for Visit Chief Complaint: Worsening LE [...] (Auto) 72.2 H, Lymph % (Auto) 20.4, [place] % (Auto) 4.1, Eos % (Auto) 2.0, [...] Bilirubin 0.23, AST 24, ALT 23, Alkaline Ospennnyvsv75, Troponin T High Sens 37 H, NT [...] % (Auto) 69.6, Lymph % (Auto) 21.7, [place] % (Auto) 4.7, Eos % (Auto) 2.5, [...] airspace consolidation or pleural effusions. Reading Location: [facility] Physical Exam Narrative GENERAL: dyspneic at rest [...] 55 Minutes Charges/Coding Visit Charges Inpatient E&M: 05443 Subs Hosp L3 08/17/25 0822 <Electronically signed by Jersey Pradhan MD> Cosigner Signature (if applicable): CC: ~ Signed [facility] Work Phone: [phone] 172-168009-17-2025 Progress note [facility] Medical Records Department [address] [place] [address] Progress Note - Hospitalist 08/17/25 0659 MR#: [id number] Acct: [id number] Name: MACARIO WALLACE Rep #:[id number] : 1975 50 From: Jersey Pradhan MD PCP: Dr. Delmy Solorzano MD Status:ADM IN Location: [place] [address] Reason for Visit Chief Complaint: Worsening LE [...] (Auto) 72.2 H, Lymph % (Auto) 20.4, [place] % (Auto) 4.1, Eos % (Auto) 2.0, [...] 0.23, AST 24, ALT 23, Alkaline Ph truitndto80, Troponin T High Sens 37 H, NT [...] % (Auto) 69.6, Lymph % (Auto) 21.7, [place] % (Auto) 4.7, Eos % (Auto) 2.5, [...] airspace consolidation or pleural effusions. Reading Location: [facility] Physical Exam Narrative GENERAL: dyspneic at rest [...] 55 Minutes Charges/Coding Visit Charges Inpatient E&M: 93956 Subs Hosp L3 08/17/25 0822 Cosigner Signature (if applicable): CC: ~ Signed [facility]09-17-2025 Consult note Author Kaylene Trejo [facility] Note Date/Time August 16, 2025 11:30pm [facility] Medical Records Department [address] [place] [address] Pharmacokinetic/Renal -Consult 08/16/252316 MR#: [id number] Acct: [id number] Name: MACARIO WALLACE Rep #:[id number] : 1975 50 From: Kaylene Trejo PCP: Dr. Delmy Solorzano MD Status:ADM IN Y Location: [place] [address] Consult Antibiotic Management Pharmacy has been consulted [...] Date Olamide Mas MD CC: ~ Signed [facility] Work Phone: 1([phone] 565-402809-16-2025 History and physical note Author Olamide Mas [facility] Note Date/Time August 16, 2025 9:32pm [facility] Medical Records Department [address] [facility] [place] [address] H&P Exam - Hospitalist 08/16/252105 MR#: [id number] Acct: [id number] Name: MACARIO WALLACE Rep #:[id number] : 1975 50 From: Olamide Mas MD PCP: Dr. 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 [facility] Medical History (Updated 08/16/25 @ 21:32 [...] 2.5 mg/3 mL 2.5 mg inhalation Q4H [place] N SOB 12/09/22 07/10/23 History (0.083 %) [...] (Auto) 72.2 H, Lymph % (Auto) 20.4, [place] % (Auto) 4.1, Eos % (Auto) 2.0, [...] airspace consolidation or pleural effusions. 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 Charges/Coding Visit Charges Inpatient E&M: 45370 Init Hosp L3 08/16/252131 <Electronically signed by Olamide Mas MD> Cosigner Signature (if applicable): CC: Dr. Olamide Mas MD; Dr. Delmy Solorzano MD~ Signed [facility] Work Phone: [phone] Consult note [facility] Medical Records Department [address] [place] [address] Pharmacokinetic/Renal -Consult 08/16/25 2317 MR#: [id number] Acct: [id number] Name: MACARIO WALLACE Rep #:[id number] : 1975 50 From: Kaylene Trejo PCP: Dr. Delmy Solorzano MD Status:ADM IN Location: [place] [address] Consult Antibiotic Management Pharmacy has been consulted [...] Date Olamide Mas MD CC: ~ Signed [facility]09-16-2025 Evaluation note* Diagnosis Onset Date Resolution Status Admit Date Cellulitis and abscess of right leg acute August 16, 2025 9:09pm Contusion of right great toe with damage to nail acute August 162024 9:09pm Elevated troponin acute [facility] er 2024 9:09pm Right leg pain acute August 16, 2025 9:09pm Skin ulcer of left great toe , limited to breakdown of skin acute Sep tember 2024 9:09pm Type 2 diabetes mellitus wit h hyperglycemia acute August 16, 2025 9:09pm Chronic venous stasis dermatitis chronic August 16, 2025 9:09pm Cellulitis of leg resolved [facility] er 2024 9:09pm Sepsis resolved August 9:09pm [facility] Work Phone: 1([phone] 725-718109-16-2025 Discharge summary Author Jozef Kaiser [facility] Note Date/Time August 16, 2025 9:07pm [facility] Medical Records Department [address] [place] [address] Emergency Department Summary 08/16/25 MR#: [id number] Acct: [id number] Name: MACARIO WALLACE Rep #:[id number] : [...] 2.5 mg/3 mL 2.5 mg inhalation Q4H [place] N SOB 12/09/22 07/10/23 History (0.083 %) [...] (Auto) 72.2 H Lymph % (Auto) 20.4 [place] % (Auto) 4.1 Eos % (Auto) 2.0 [...] airspace consolidation or pleural effusions. Reading Location: [facility] The radiology report was reviewed. Agree with cardiomegaly disagree with vascular congestion. Furthermore patient has no rales and BNP is normal. EKG Initial EKG: Attestation: I personally reviewed and interpreted this EKG as follows: Interpretation: Sinus Rhythm (Rate is 93. OH interval is 140 ms. Cures duration 86 ms her QT duration Aleks 68 ms. [place] normal. EKG is normal.) Management Discussion w/another [...] Elevated troponin Disposition Disposition: Acute Care [facility] What to do if you have Problems For any increased pain, shortness of breath, bleeding, nausea or vomiting, chestpain, or any unexpected problems, contact your Primary Care Provider. Call [facility] ([phone]) or report to the closest Emergency Room. Call 911 if necessary. 08/16/252106 <Electronically signed by Jozef Kaiser MD> Cosigner Signature (if applicable): CC: Dr. Delmy Solorzano MD ~ Signed [facility] Work Phone: 1([phone] 180-111209-16-2025 History and physical note [facility] Medical Records Department [address] [place] [address] H&P Exam - Hospitalist 08/16/252105 MR#: [id number] Acct: [id number] Name: MACARIO WALLACE Rep #:[id number] : 1975 50 From: Olamide Mas MD PCP: Dr. 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 [facility] Medical History (Updated 08/16/25 @ 21:32 [...] 2.5 mg/3 mL 2.5 mg inhalation Q4H [place] N SOB 12/09/22 07/10/23 History (0.083 %) [...] (Auto) 72.2 H, Lymph % (Auto) 20.4, [place] % (Auto) 4.1, Eos % (Auto) 2.0, [...] airspace consolidation or pleural effusions. 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 Charges/Coding Visit Charges Inpatient E&M: 75108 Init Hosp L3 08/16/25 2132 Cosigner Signature (if applicable): CC: Dr. Olamide Mas MD; Dr. Delmy Solorzano MD~ Signed [facility]09-16-2025 Discharge summary [facility] Medical Records Department [address] [place] [address] Emergency Department Summary 08/16/25 MR#: [id number] Acct: [id number] Name: MACARIO WALLACE Rep #:[id number] : [...] 2.5 mg/3 mL 2.5 mg inhalation Q4H [place] N SOB 12/09/22 07/10/23 History (0.083 %) [...] (Auto) 72.2 H Lymph % (Auto) 20.4 [place] % (Auto) 4.1 Eos % (Auto) 2.0 [...] airspace consolidation or pleural effusions. Reading Location: [facility] The radiology report was reviewed. Agree with cardiomegaly disagree with vascular congestion. Furthermore patient has no rales and BNP is normal. EKG Initial EKG: Attestation: I personally reviewed and interpreted this EKG as follows: Interpretation: Sinus Rhythm (Rate is 93. [place] interval is 140 ms. Cures duration 86 ms her QT duration Aleks 68 ms. [place] normal. EKG is normal.) Management Discussion w/another [...] Elevated troponin Disposition Disposition: Acute Care [facility] What to do if you have Problems For any increased pain, shortness of breath, bleeding, nausea or vomiting, chestpain, or any unexpected problems, contact your Primary Care Provider. Call [facility] ([phone]) or report tothe closest Emergency Room. Call 911 if necessary. 08/16/252106 Cosigner Signature (if applicable): CC: Dr. Delmy Solorzano MD ~ Signed [facility]09-16-2025 Radiology Diagnostic study note [facility] Imaging Services [address] [place] [address] Chest PA and Lateral MR#: [id number] Acct: [id number] Name: MACARIO WALLACE KENJI Rep #: [id number] : 1975 F 50 From: Sebas Morrissey MD PCP: Dr. Delmy Solorzano MD Status: REG ER Study:Chest PA and Lateral Date of Exam: 08/16/25 Exam# [id number] Ordering Dr: Savanna Kaiser MD PROCEDURE: CHEST [...] airspace consolidation or pleural effusions. Reading Location: [facility] CC: Dr. Delmy Solorzano MD; Dr. Jozef Kaiser MD ~ Team Foreman: Signed [facility]09-16-2025 Discharge summary Author Jozef Kaiser [facility] Note Date/Time August 16, 2025 9:07pm [facility] Medical Records Department [address] [place] [address] Emergency Department Summary 08/16/25 MR#: [id number] Acct: [id number] Name: RIGOBERTOVENKATMACARIO Rep #:[id number] : 1975 [...] 2.5 mg/3 mL 2.5 mg inhalation Q4H [place] N SOB 12/09/22 07/10/23 History (0.083 %) [...] (Auto) 72.2 H Lymph % (Auto) 20.4 [place] % (Auto) 4.1 Eos % (Auto) 2.0 [...] airspace consolidation or pleural effusions. Reading Location: [facility] The radiology report was reviewed. Agree with cardiomegaly disagree with vascular congestion. Furthermore patient has no rales and BNP is normal. EKG Initial EKG: Attestation: I personally reviewed and interpreted this EKG as follows: Interpretation: Sinus Rhythm (Rate is 93. OH interval is 140 ms. Cures duration 86 ms her QT duration Aleks 68 ms. [place] normal. EKG is normal.) Management Discussion w/another [...] your Primary Care Provider. Call [facility] ([phone]) or report to the closest Emergency Room. Call 911 if necessary. 08/16/252106 <Electronically signed by Jozef Kaiser MD> Cosigner Signature (if applicable): CC: Dr. Delmy Solorzano MD ~ Signed [facility] Work Phone: 1(462) 316-516512-13-2024 [facility] Medical Records Department [address] [place] [address] Discharge Summary 11/12/24 1614 MR#: [id number] Acct: [id number] Name: MACARIO WALLACE Rep #: [id number] : 1975 49 From: Ling Neville MD PCP: Dr. Delmy Solorzano MD Status:ADM IN Location: [place] [address] Providers Date of Admission: 11/09/24 Date of Discharge: 11/12/24 Primary Care Physician: Delmy Solorzano MD Consultations 11/10/24 07:25 Consult: Onc/Wound/home theater experience expert Routine Comment: Reason for Consult:: Cellulitis 11/11/24 [...] up yellow and brow (more content not included)...[facility]09-05-2023 Miscellaneous Notes* Telephone Encounter - Lula [...] Requested Prescriptions Pending Prescriptions Disp Refills Insulin Morris, Disposable, (BD ULTRA-FINE GABINO PEN NEEDLE) 32 [...] you. Keyonna Gross LPN documented in this encounterGreene [facility] Hospital09-05-2023 Miscellaneous Notes* Telephone Encounter - Georgina Samayoa RN - 08/05/2023 1:07 PM EDT Opened in Error documented in this encounterGreene Memorial Hospital08-30-2023 Miscellaneous Notes* Telephone Encounter - Roc Stephens [...] PCP if she requests. documented in this encounterGreene Memorial Hospital08-29-2023 Miscellaneous Notes* Telephone Encounter - Keyonna Gross [...] 10:18 AM EDT Medication refill requested by [facility]. Requested Prescriptions Pending Prescriptions Disp Refills gabapentin (NEURONTIN) 800 mg tablet Sig: Take 1 tablet by mouth three times daily. Last encounter with this provider: 06/24/2023 Next appt: 07/29/2023 Tri Sorensen RN documented in this encounterGreene Memorial Hospital08-23-2023 Miscellaneous Notes* Telephone Encounter - Marianne Grier [...] you. Marianne Grier RN documented in this encounterGreene Memorial Hospital08-15-2023 Discharge summary Author Belem Aponte [facility] July 15, 2023 12:23pm Note Date/Time July 15, 2023 12 :03pm [facility] Medical Records Department [address] [place] [address] Discharge Summary 07/15/23 1203 MR#: [id number] Acct: [id number] Name: MACARIO WALLACE Rep #:[id number] : 1975 48 From: Belem Aponte DO PCP: Dr. Tino Oreilly MD Status :ADM JACQUELYN Location: [place] [address] 1 Providers Date of Admission: 07/14/23 Date [...] baseline. She indicated she was recently in [place] visiting her mother and had to be [...] % (Auto) 67.8, Lymph % (Auto) 21.4, [place] % (Auto) 4.5, Eos % (Auto) 1.8, [...] Neut % (Auto) 67.0, Lymph % (Auto)21.4, [place] % (Auto) 4.5, Eos % (Auto) 2.1, [...] 80 mg tablet 80 mg PO QHS rmvoxfqg-zyaj-TM-calcium-mins 1 EACH tablet 1 ea PO DAILY [...] - Within 2 Weeks Nelly Hunter NP, QUALITY OFFICER-C [Med Staff - Adv Practice Prof] - Within 1 Month (callfor appt) Disposition Disposition (needs filled in before D/C Order can be placed): Home, Self Care Charges/Coding Visit Charges Inpatient E&M: 01067 Disch Hosp 07/15/23 1223 <Electronically signed by Belem Aponte DO> Cosigner Signature (if applicable): CC: Dr. Tino Oreilly MD; Dr. Belem Aponte DO~ Signed [facility] Work Phone: 1(606) 479-768308-14-2023 History and physical note Author Liam Wilkes [facility] July 14, 2023 8:28pm Note Date/Time July 14, 2023 5: 10pm [facility] Medical Records Department [address] [place] [address] H&P Exam - Hospitalist 07/14/23 6491 MR#: [id number] Acct: [id number] Name: MACARIO WALLACE Rep #:[id number] : 1975 48 From: Liam regalado MD PCP: Dr. Tino Oreilly MD Status :ADM JACQUELYN Location: [place] [address] 1 HPI - General General Date of [...] She states that [place] secondary to severe volume overload and had to be on dialysis for 2 days in order to get the fluid off. She does state that she follows a fluid restricted diet and a salt restricted diet as well. [facility] Medical History (Updated 07/14/23 @ 16:49 by Yani Mercaod) Abscess Abscess of vulva Acute on chronic [...] % (Auto) 67.8, Lymph % (Auto) 21.4, [place] % (Auto) 4.5, Eos % (Auto) 1.8, [...] with colleagues Charges/Coding Visit Charges Inpatient E&M: 20455 Init Hosp L3 07/14/232027 <Electronically signed by Liam Wilkes MD> Cosigner Signature (if applicable): CC: Dr. Tino Oreilly MD; Dr. Liam Wilkes MD~ Signed [facility] Work Phone: 1(424) 356-320108-14-2023 History and physical note Author Liam Wilkes [facility] July 14, 2023 8:28pm Note Date/Time July 14, 2023 5: 10pm [facility] Medical Records Department [address] [place] [address] H&P Exam - Hospitalist 07/14/23 1639 MR#: [id number] Acct: [id number] Name: MACARIO WALLACE Rep #:[id number] : 1975 48 From: Liam regalado MD PCP: Dr. Tino Oreilly MD Status :ADM JACQUELYN Location: [place] [address] HPI - General General Date of Admission: [...] She states that [place] was [place] secondary to severe volume overload and had to be on dialysis for 2 days in order to get the fluid off. She does state that she follows a fluid restricted diet and a salt restricted diet as well. [facility] Medical History (Updated 07/14/23 @ 16:49 [...] % (Auto) 67.8, Lymph % (Auto) 21.4, [place] % (Auto) 4.5, Eos % (Auto) 1.8, [...] with colleagues Charges/Coding Visit Charges Inpatient E&M: 68671 Init Hosp L3 07/14/232027 <Electronically signed by Liam Wilkes MD> Cosigner Signature (if applicable): CC: Dr. Tino Oreilly MD; Dr. Liam Wilkes MD~ Signed [facility] Work Phone: 1(242) 471-389808-14-2023 Discharge summary Author Irina Quintero [facility] July 14, 2023 4:18pm Note Date/Time July 14, 2023 11 :28am [facility] Medical Records Department [address] [place] [address] Emergency Department Summary 07/14/23 MR#: [id number] Acct: [id number] Name: MACARIO WALLACE Rep #:[id number] : 1975 48 From: Irina Quintero MD PCP: Dr. Tino Oreilly MD Status :ADM JACQUELYN Location: [place] [address] HPI History of Present Illness Chief Complaint: [...] she was hospitalized at a hospital in [place] 5 to 6 weeks ago on life support with another flare. She has noted recent weight gain. [facility] Medical History Abscess Abscess of vulva Acute [...] Medical decision making narrative: Patient placed on search consultant. EKG obtained to evaluate for cardiac arrhythmia/ischemia. [...] % (Auto) 67.8 Lymph % (Auto) 21.4 [place] Franc[place] % (Auto) 4.5 Eos % (Auto) 1.8 [...] 80 mg tablet 80 mg PO QHS rutnmcxx-elsp-WO-calcium-mins 1 EACH tablet 1 ea PO DAILY [...] Provider] - Disposition Disposition: Acute Care Hospital [facility] What to do if you have Problems For any increased pain, shortness of breath, bleeding, nausea or vomiting, chestpain, or any unexpected problems, contact your Primary Care Provider. Call [facility] ([phone]) or report to the closest Emergency Room. Call 911 if necessary. 07/14/23 7948 <Electronically signed by Irina Quintero MD> Cosigner Signature (if applicable): CC: Dr. Tino Oreilly MD ~ Signed [facility] Work Phone: 1(570) 916-114108-14-2023 Discharge summary Author Irina Quintero [facility] July 14, 2023 4:18pm Note Date/Time July 14, 2023 11 :28am [facility] Medical Records Department [address] [place] [address] Emergency Department Summary 07/14/23 MR#: [id number] Acct: [id number] Name: MACARIO WALLACE Rep #:[id number] : 1975 48 From: Irina Quintero MD PCP: Dr. Tino Oreilly MD Status :ADM JACQUELYN Location: [place] [address] HPI History of Present Illness Chief Complaint: [...] she was hospitalized at a hospital in [place] 5 to 6 weeks ago on life support with another flare. She has noted recent weight gain. [facility] Medical History Abscess Abscess of vulva Acute [...] Medical decision making narrative: Patient placed on search consultant. EKG obtained to evaluate for cardiac arrhythmia/ischemia. [...] % (Auto) 67.8 Lymph % (Auto) 21.4 [place] % (Auto) 4.5 Eos % (Auto) 1.8 [...] 80 mg tablet 80 mg PO QHS zjhsjgfw-ekin-GO-calcium-mins 1 EACH tablet 1 ea PO DAILY [...] Provider] - Disposition Disposition: Acute Care Hospital [facility] What to do if you have Problems For any increased pain, shortness of breath, bleeding, nausea or vomiting, chestpain, or any unexpected problems, contact your Primary Care Provider. Call [facility] ([phone]) or report to the closest Emergency Room. Call 911 if necessary. 07/14/23 4715 <Electronically signed by Irina Quintero MD> Cosigner Signature (if applicable): CC: Dr. Tino Oreilly MD ~ Signed [facility] Work Phone: 1(505) 150-730508-14-2023 Discharge summary Author Irina Quintero [facility] July 14, 2023 4:18pm Note Date/Time July 14, 2023 11 :28am [facility] Medical Records Department [address] [place] [address] Emergency Department Summary 07/14/23 MR#: [id number] Acct: [id number] Name: MACARIO WALLACE Rep #:[id number] : 1975 48 From: Irina Quintero MD PCP: Dr. Tino Oreilly MD Status :ADM JACQUELYN Location: [address] History of Present Illness Chief Complaint: [...] she was hospitalized at a hospital in [place] 5 to 6 weeks ago on life support with another flare. She has noted recent weight gain. [facility] Medical History Abscess Abscess of vulva Acute [...] Medical decision making narrative: Patient placed on search consultant. EKG obtained to evaluate for cardiac arrhythmia/ischemia. [...] % (Auto) 67.8 Lymph % (Auto) 21.4 [place] % (Auto) 4.5 Eos % (Auto) 1.8 [...] 80 mg tablet 80 mg PO QHS nqrpople-otoi-SM-calcium-mins 1 EACH tablet 1 ea PO DAILY [...] Provider] - Disposition Disposition: Acute Care Hospital [facility] What to do if you have Problems For any increased pain, shortness of breath, bleeding, nausea or vomiting, chestpain, or any unexpected problems, contact your Primary Care Provider. Call [facility] ([phone]) or report to the closest Emergency Room. Call 911 if necessary. 07/14/23 1618 <Electronically signed by Irina Quintero MD> Cosigner Signature (if applicable): CC: Dr. Tino Oreilly MD ~ Signed [facility] Work Phone: 1([phone]) 445-451208-08-2023 Miscellaneous Notes* Telephone Encounter - Roc Stephens Ma - 07/08/2023 4:53 PM EDT PA sent from pharmacy for lancets/test strips. Pa was completed since patient already has working meter Completed through covermymeds Lancets foley: [id number] Was approved: PA Case: [id number], Status: Approved, Coverage Starts on: 04/08/2023 12:00:00 AM, Coverage Ends on: 07/07/2024 12:00:00 AM. Test strips foley: [id number] Was approved: Approved PA Case: [id number], Status: Approved, Coverage Starts on: 04/08/2023 12:00:00 AM, Coverage Ends on: 07/07/2024 12:00:00 AM. Roc Stephens Ma documented in this encounterGreene Memorial Hospital08-08-2023 Miscellaneous Notes* Telephone Encounter - Lula Sarmiento [...] calling: self Call patient at: at home [phone] (home) [phone] (cell) Was an appointment scheduled: No Closing statement: Results or non-symptom based questions: Thank you for calling [facility], your call will be returned within the next business day. Vanessa Domingo documented in this encounterGreene Memorial Hospital08-08-2023 Miscellaneous Notes* Telephone Encounter - Cass Morin MA - 07/08/2023 1:40 PM EDT HUMBLE: 06/24/23 with CB NOV: 07/22/23 with CB Last refill: Lancets 12/21/21 With 200 and 3 refills Freestyle test strips 11/27/22 With 200 strips and 3 refills BD ultra Fine Morris 07/24/22 With 100 and 5 refills Ozempic [...] time a week. This REPLACES Trulicity. Insulin Morris, Disposable, (BD ULTRA-FINE GABINO PEN NEEDLE) 32 [...] notify patient. Vanessa Domingo documented in this encounterGreene Memorial Hospital07-21-2023 Miscellaneous Notes* Telephone Encounter - Annie Bey [...] you. Mariam Meredith RN documented in this encounterGreene Memorial Hospital07-07-2023 History of Present illness Narrative* Omaira Taveras RN - 06/06/2023 10:28 AM EDT TRANSITIONAL CARE MANAGEMENT (TCM) COMMUNITY MONITORING PROGRAM Provider Action/FYI: Will defer initial outreach to pt for OON hospital discharge. Pt was transferred to another hospital Copied from Care Everywhere 05/27/2023 8:24 PM EDT - 05/31/2023 5:00 PM EDT Principal problem: KERRY Discharge Disposition: Another Health Care Institution Not Defined [facility] 05/31/2023 5:51 PM EDT - Present Multiple tracheobronchial mucus plugs (Primary Dx); Acute respiratory failure with hypoxia and hypercapnia (CMS/HCC); Impaired mobility and ADLs Assessment/Comments: Macario Wallace is a 47 y.o.female admitted as a transfer from [facility] for increasing shortness of breath. Pt was dialyzed, given levophed and ultimately intubated. PMH includes CHF, DM, LOGAN SUMMARY: Discharge Network Status: Gdn-mh-Apcdeic (OON) Discharge Pt discharged from on 05/31/23. Admitted for: KERRY Outreach ended documented in this encounterGreene Memorial Hospital06-29-2023 Miscellaneous Notes* Telephone Encounter - Lula Cameron LPN - 05/29/2023 8:25 AM EDT Opened in error. Lula Cameron LPN documented in this encounterGreene Memorial Hospital06-23-2023 Miscellaneous Notes* Telephone Encounter - Panfiol Oreilly MD - 05/23/2023 11:31 AM EDT [...] 05/23/2023 11:24 AM EDT Pharmacy verified in [facility] Patient has been identified by name [...] advise. Irina Reddy Pss documented in this encounterGreene Memorial Hospital06-14-2023 Miscellaneous Notes* Telephone Encounter - Kimber Hendrickson MA - 05/14/2023 2:53 PM EDT DME forms signed by Dr. Oreilly and faxed to [facility]. Kimber Hendrickson MA documented in this encounterGreene Memorial Hospital06-02-2023 Miscellaneous Notes* Telephone Encounter - Panfilo Oreilly [...] going on a few weeks vacation to [place] and that her would is doing really well, it's almost healed. And would not let me assess the wound today. I discharged her from home care. Thank you documented in this encounterGreene Memorial Hospital06-02-2023 Miscellaneous Notes* SN Agency DC - Kallie Cali RN - 05/02/2023 12:22 PM EDT SITUATION: Shelter agency discharge visit completed today. only patient [...] Also I am going to go to [place] for a vacation for a few weeks SN reviewed d/c instructions wiht pt. SN gave pt phone number to contact [employer] if more supplies are needed. See intervention [...] for additional medical questions/concerns. documented in this encounterGreene Memorial Hospital05-31-2023 Miscellaneous Notes* Telephone Encounter - Kimberly Almodovar Ma - 04/30/2023 3:37 PM EDT Notified pt via [employer] [facility] has been sent into the pharmacy. [...] you. Lashon Overton LPN documented in this encounterGreene Memorial Hospital05-29-2023 Miscellaneous Notes* HH PT EVALUATION - Thierno [...] Precautions: fall risk ASSESSMENT: [facility] physical therapy. Reviewed and explained homecare [...] summary for intervention/education details. documented in this encounterGreene Memorial Hospital05-27-2023 Miscellaneous Notes* [facility] JIGNESH - Jacquelin Mtz RN - 04/26/2023 10:41 AM EDT SITUATION: Shelter JIGNESH visit completed today. daughter and son also present during today's visit. patient reports the following: Allergies--reviewed Medications--full medication reconciliation completed Falls--None DME-Reviewed BACKGROUND: Initial reason for home care: Acute on chronic respiratory failure with hypercapnia Perianal abscess JIGNESH today due to Discharged/Referral from [facility] on 04-25-23 following treatment for [...] CHF and COPD education documented in this encounterGreene Memorial Hospital05-10-2023 Miscellaneous Notes* SN Routine - Bonnie Yuen RN - 04/09/2023 1:06 PM EDT SITUATION: Shelter routine visit completed today. only patient present [...] wound care and assessment documented in this encounterGreene Memorial Hospital05-03-2023 Miscellaneous Notes* SN Routine - Bonnie Yuen RN - 04/02/2023 11:06 AM EDT SITUATION: Shelter routine visit completed today. only patient present [...] wound assessment and care documented in this encounterGreene Memorial Hospital04-28-2023 Miscellaneous Notes* Telephone Encounter - Hallie Martinez [...] you. Mehrdad Michael RN documented in this encounterGreene Memorial Hospital04-27-2023 Miscellaneous Notes* Letter - Conrado Sellers MD - 03/27/2023 12:57 PM EDT [facility] Payer Denial Management [address] [place] [address] DATE: 03/26/2023 FACILITY: [facility]. Patient: MACARIO WALLACE Date of Service: [...] December 26, for EUA and debridement; a Basin drain was left in the L inguinal [...] was able to be transferred to the [facility] on December 31, 2022. Operative cultures were [...] and was not preventable or a voidable. [facility] request your kind reconsideration of this case; and full proper reimbursement for the inpatient admission of January 13, 2023 to January 16, 2023. A review of the enclosed documentation will support these statements. Please send your response to [facility], [facility], [address] [place] [address], [place] [address]. If additional information is needed please contact me at [phone]. Sincerely, Conrado Sellers M.D. [place] Physician Advisor [address] [place] [address] [email or web address] documented in this encounterGreene Memorial Hospital04-21-2023 Miscellaneous Notes* SN Routine - Bonnie Yuen RN - 03/21/2023 1:05 PM EDT SITUATION: Shelter routine visit completed today. only patient present [...] wound assessment and care documented in this encounterGreene Memorial Hospital04-19-2023 Miscellaneous Notes* CARE COORDINATION - PER [place] - 03/19/2023 2:00 PM EDT 03/19/23 2:05 PM - 2:08 PM [employer] called the pt. regarding if she needed transportation and if her daughter told her [employer] PR[employer] HEATER called regarding this. The pt. stated her daughter told her COKE PRODUCTION HEATER called. The pt. stated she did not need transportation. The pt. is aware of [employer] Medicaid providing transp ortation to medical appointments. [employer] informed the pt. that CO[employer] PR[employer] HEATER spoke to Brandy Puenteandreina her Waiver Decorative Engraver Apprentice with [employer] [facility] regarding transportation and Waiver is payor of last resort. [employer] asked the pt. if they had found an Aide yet under Waiver. The pt. stated she is talking to an Aide today that is an Independent Provider regarding being her Aide under [place] i[place]. [employer] informed the pt. to call [employer] with any needs. 03/19/23 [employer] messaged PHAM Rodriguez-COKE PRODUCTION HEATERKip Villeda regarding above phone call with the pt. documented in this encounterGreene Memorial Hospital04-14-2023 Miscellaneous Notes* SN Routine - Bonnie Yuen RN - 03/14/2023 2:21 PM EDT SITUATION: Shelter routine visit completed today. family members also [...] wound assessment and care. documented in this encounterGreene Memorial Hospital04-12-2023 Miscellaneous Notes* Telephone Encounter - Panfilo Oreilly [...] patient. Tri Sorensen RN documented in this encounterGreene Memorial Hospital04-12-2023 Miscellaneous Notes* PT EVALUATION - Devin Barragan, [...] Precautions: Fall risk ASSESSMENT: Patient evaluated by [facility] physical therapy. Reviewed and explained homecare [...] summary for intervention/education details. documented in this encounterGreene Memorial Hospital04-12-2023 Miscellaneous Notes* Telephone Encounter - Sandra Potts LPN - 03/12/2023 10:22 AM EDT Faxed at this time. Sandra Potts LPN * Telephone Encounter - Hallie Martinez APRN.CNP - 03/12/2023 7:32 AM EDT Please fax recent office note with DME orders to [phone] TTN: Thang Laureano. All papers in my outbox. Hallie Martinez APRN.CNP documented in this encounterGreene Memorial Hospital04-11-2023 Instructions* Patient Instructions* Hallie Martinez APRN.CNP - 03/11/2023 12:06 PM EDT Counseling and Psychiatry Services [facility] [address] [place] [address] *counseling [facility] [address] [facility] [address] *counseling [address] [address] *counseling [facility] [address] [place] [address] *counseling and psychiatry [address] [address] *counseling [address] [address] *counseling [place] [address] [facility] [address] *counseling [place] [address] [place] [address] *counseling [facility] [address] [place] [address] [facility] [address], [address] [place] [address] *counseling [facility] [address] [place], [place] [id number] [facility] [address] [place], [place] [address] *counseling Daphney Monet [address] [place] [address] [facility] [address] [facility] [place] [address] *counseling [employer] [address] [place] [address] *counseling [facility] [address] [place], [place] [address] *counseling and psychiatry [facility], [address] [place], [place] [address] *psychiatry [facility] [phone] *grief counseling, individual and groups *If you ever experience a mental health crisis please call [phone] 911, Please verify with insurance provider for coverage documented in this encounterGreene Memorial Hospital04-11-2023 History of Present illness Narrative* Hallie Martinez APRN.CNP - 03/11/2023 11:44 AM EDT 03/11/2023 Patient presents with: Hospital F/U: [facility] dx: pneumonia Discharged on 03/05/2023 Completed prednisone [...] Reports she has upcoming appointment with her appliance installer, however unsure when appointment is Continues to see wound care at [facility] on as well as home nurse twice [...] She reports she was made aware by protective services case worker she can call and set up rides through their service to assist to getting to appointments. Available hospital records reviewed. 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 Left, small lesion on CT Anxiety Cholecystitis s/p cholecystectomy Diabetes mellitus without mention of complication Diabetic neuropathy ([facility]) Seeing Neurology Diastolic heart failure ([facility]) GERD (gastroesophageal reflux disease) History of abnormal cervical Pap smear History of tobacco use Hyperlipidemia Insomnia Microalbuminuria Morbid obesity ([facility]) Narcotic abuse ([facility]) Non-STEMI (non-ST elevated myocardial infarction) ([facility]) 2/2 respiratory illness LOGAN (obstructive sleep apnea) using CPAP, Dr. Dumont Pulmonary embolism ([facility]) Seasonal allergies Unspecified essential hypertension [...] wheezing/shortness of breath. Use over 5-15minutes. Insulin Morris, Disposable, (BD ULTRA-FINE GABINO PEN NEEDLE) 32 [...] continue oxygen as prescribed - follow-up with appliance installer as scheduled to ER with red flag symptoms 5. Oxygen dependent - ICD9: V46.2, ICD10: Z99.81 - follow-up with appliance installer as scheduled - SEAT LIFT MECHANISM COMBL - HOSP BED W MATTR FULL ELECTRIC - DME SUPPLY OR ACCESSORY, NOS 6. Impaired ambulation - ICD9: 719.7, ICD10: R26.2 - work with PT on strengthening and improving balance - INCONTINENCE SUPPLY - SEAT LIFT MECHANISM COMBL - HOSP BED W MATTR FULL ELECTRIC - DME SUPPLY OR ACCESSORY, NOS 7. Stress incontinence - ICD9: [id number], ICD10: N39.3 - INCONTINENCE SUPPLY 8. Anxiety and depression - ICD9: 300.00, 311, ICD10: F41.9, F32.A - Discussed concept of neurochemical imbalance wth depression/anxiety - Option of Medication use discussed - Risks/benefits of SSRIs - Common side effects - Sleep Hygeine - advised counseling to improve management of stressors- handout of local counseling centers provided - Instructed patient to contact office or ymoxr-tp-bmot after-hours promptly should condition worsen or any new symptoms appear. - [facility] and after hours crisis line - German's [...] call for rides at number given by protective services case worker. Discussed is she is unable to make [...] which included preparing to see the patient, mura-eo-lodw patient care, completing clinical documentation, obtaining and/or reviewing separately obtained history, performing a medically appropriate examination, counseling and educating the pat ient/family/caregiver, ordering medications, tests, or procedures, and care coordination (not separately reported). documented in this encounterGreene [facility] Hospital04-10-2023 Miscellaneous Notes* SN Routine - Chey Acharya RN - 03/10/2023 11:19 AM EDT SITUATION: Shelter routine visit completed today. only patient also [...] sepsis education, DM edcuation documented in this encounterGreene Memorial Hospital04-08-2023 Miscellaneous Notes* Telephone Encounter - Moni Sanches - 03/08/2023 2:47 PM EDT Attempted to schedule PT eval today. Patient declined and prefers another day. Thanks, Dru Sanches, spares scheduler. documented in this encounterGreene Memorial Hospital04-07-2023 Miscellaneous Notes* SN SOC - Chey Acharya RN - 03/07/2023 11:09 AM EDT SITUATION: Shelter SOC visit completed today. friend also present [...] dm education, sepsis education documented in this encounterGreene Memorial Hospital04-07-2023 Miscellaneous Notes* HH CARE COORDINATION - PER [place] - 03/07/2023 8:10 AM EDT 03/07/23 8:10 AM - 8:12 AM COKE PRODUCTION HEATER called Brandy Ross [facility] Decorative Engraver Apprentice with [facility] and left her a message that the pt. was scheduled for a Start of care today. COKE PRODUCTION HEATER stated the pt. to have Nursing and PT. COKE PRODUCTION HEATER left her name and phone number. documented in this encounterGreene Memorial Hospital04-06-2023 Miscellaneous Notes* Telephone Encounter - Panfilo Oreilly MD - 03/06/2023 9:56 AM EDT Reviewed and agree. * Telephone Encounter - Malka Mas LPN - 03/06/2023 9:[address]Christopher Dorys Oreilly MD , Panfilo Oreilly MD was active with [facility] for sn and pt services. Her insurance [...] you, Malka Mas LPN documented in this encounterGreene Memorial Hospital04-05-2023 Miscellaneous Notes* Telephone Encounter - Georgina Samayoa RN - 03/05/2023 4:21 PM EDT FYI: Carolee from [facility] calls to report that patient was discharged from [facility] today 03/05/2023. Patient is scheduled with Hallie for hospital follow up on 03/11/2023. Georgina Samayoa RN documented in this encounterGreene Memorial Hospital04-05-[address] Neville [facility] March 05, 2023 11:07am Note Date/Time March 05, 2023 11:0 7am [facility] Medical Records Department [address] [place] [address] Instructions for Home/Discharge Instructions 03/05/23 1105 MR#: [id number] Acct: [id number] Name: MACARIO WALLACE Rep #:[id number] : [...] Box ; Jarrett Villalobos ; Nelly Hunter QUALITY OFFICER ; Faraz Lange Instructions Patient Instructions: ED [...] 80 mg tablet 80 mg PO QHS pklotpfi-jovt-CC-calcium-mins 1 EACH tablet 1 ea PO DAILY [...] MD; Dr. Jarrett Villalobos MD ~ Signed [facility] Work Phone: 1(509) 960-109304-05-[address] Sanders [facility] March 05, 2023 7:27am Note Date/Time March 05, 2023 7:04 am [facility] Medical Records Department [address] [place] [address] Progress Note - Wood Carving Lathe Operator 03/05/23 0701 MR#: [id number] Acct: [id number] Name: MACARIO WALLACE Rep #:[id number] : [...] of discharge. This note was generated with [employer] dictation software. It may contain incorrectwords, spelling, [...] (Auto) 74.4 H, Lymph % (Auto) 19.1, [place]. Franc[place] % (Auto) 5.6, Eos % (Auto) 0.1, [...] affect normal Charges/Coding Visit Charges Inpatient E&M: 30073 Subs Hosp L2 03/05/23 0754 <Electronically signed by Ace Sanders DO> Cosigner Signature (if applicable): CC: ~ Signed [facility] Work Phone: 1(244) 119-727304-04-[address] Neville [facility] March 04, 2023 5:32pm Note Date/Time March 04, 2023 2:15 pm [facility] Medical Records Department [address] [place] [address] Progress Note 03/04/23 1410 MR#: [id number] Acct: [id number] Name: MACARIO WALLACE Rep #:[id number] : [...] 86.2 H, Lymph % (Auto) 9.[address] L, [address] Franc[place] % (Auto) 3.4, Eos % (Auto) 0.0, [...] necrotizing fasciitis of the left groin in [facility] in December 2023 and had debridement done. [...] 24-48 hours Charges/Coding Visit Charges Inpatient E&M: 84789 Subs Hosp L2 03/04/23 1732 <Electronically signed by Ling Neville MD> Ling Neville MD Cosigner Signature (if applicable): CC: ~ Signed [facility] Work Phone: [phone] 209-322004-04-2023 Miscellaneous Notes* CARE COORDINATION - PER [place] - 03/04/2023 3:45 PM EDT 03/04/23 3:54 PM - 3:58 PM COKE PRODUCTION HEATER received a phone call from Brandy [facility] Care[facility] with [facility] and she informed COKE PRODUCTION HEATER that the pt. wasadmitted to [facility] yesterday 03/03/23. She stated that someone went to see the pt. and she was not there. Brandy stated that they spoke to the pt.'s family and they informed them thept. was admitted to the hospital yesterday. COKE PRODUCTION HEATER asked Brandy if she was aware the pt.'s insurance changed to [place] Medicare and she stated that the pt. changed her Medicare plan and that she was still on [facility]. Brandy stated that the pt. was still on Waiver. 03/04/23 3:54 PM - 3:57 PM COKE PRODUCTION HEATER called [facility] and spoke to the Distribution Clerk regarding if the pt. was admitted there and she informed COKE PRODUCTION HEATER that the was was currently admitted there. 03/04/23 4;03 PM COKE PRODUCTION HEATER Emailed [facility] Field Support Scheduling, Bharat Gardner RN Case Manager and Irina Martínez RN - [facility], the pt. Macario Wallace has been admitted to [facility] 03/03/23 per Waiver Decorative Engraver Apprentice. I did call [facility] and they stated she was admittedthere. She is a SOC for tomorrow. Thanks, documented in this encounterGreene Memorial Hospital04-04-2023 Miscellaneous Notes* CARE COORDINATION - PER [place] - 03/04/2023 2:45 PM EDT 03/04/23 2:54 PM - 2:56 PM COKE PRODUCTION HEATER [facility] Decorative Engraver Apprentice with [facility] on [facility] and left her a message regarding if the pt. was still on Waiver and regarding the pt.'s insurance changing to [place]. COKE PRODUCTION HEATER left her name and phone number for Brandy to call COKE PRODUCTION HEATER back. documented in this encounterGreene Memorial Hospital04-04-[address] Sanders [facility] March 04, 2023 9:16am Note Date/Time March 04, 2023 7:09 am [facility] Medical Records Department [address] [place] [address] Progress Note - Wood Carving Lathe Operator 03/04/23 0707 MR#: [id number] Acct: [id number] Name: MACARIO WALLACE Rep #:[id number] : [...] of discharge. This note was generated with [employer] dictation software. It may contain incorrectwords, spelling, [...] 86.2 H, Lymph % (Auto) 9.[address] L, [address] Franc[place] % (Auto) 3.4, Eos % (Auto) 0.0, [...] Right Wound Culture - Preliminary GNR non ladler 03/02/23 18:10 Urine Catheter - Catheter Urine [...] affect normal Charges/Coding Visit Charges Inpatient E&M: 10929 Subs Hosp L2 03/04/23 0916 <Electronically signed by Ace Sanders DO> Cosigner Signature (if applicable): CC: ~ Signed [facility] Work Phone: 1(461) 260-249704-04-2023 Consult note Author Faraz Lerner [facility] March 04, 2023 12:10am Note Date/Time March 04, 2023 12:1 0am [facility] Medical Records Department [address] [place] [address] Pharmacokinetic/Renal -Consult 03/04/23 0008 MR#: [id number] Acct: [id number] Name: MACARIO WALLACE Rep #:[id number] : [...] Right Wound Culture - Preliminary GNR non ladler 03/02/23 18:10 Urine Catheter - Catheter Urine [...] Signature (if applicable): Date CC: ~ Signed [facility] Work Phone: 1(157) 413-409204-03-[address] Neville [facility] March 03, 2023 5:48pm Note Date/Time March 03, 2023 5:39 pm [facility] Medical Records Department [address] [place] [address] Progress Note 03/03/23 1734 MR#: [id number] Acct: [id number] Name: MACARIO WALLACE Rep #:[id number] : [...] Clarity Clear, Urine pH 6.0, Ur Specific Shelby 1.015, Urine Protein 30 H, Urine Glucose [...] 85.4 H, Lymph % (Auto) 10.[address], [address] Francois % (Auto) 1.9, Eos % (Auto) 0.1, Baso % (Auto) 0.6, Absolute Neuts (auto) 9.7 H, Absolute Lymphs (auto) 1.16, Nucleated RBC % 1.1 03/03/23 03:15: Sodium 136, Potassium 4.2, Chloride 98, Carbon Dioxide 35.0 H, Anion Gap 3 L, BUN 13, Creatinine 0.76, Estim Creat Clear Calc 84.11, Est GFR (MDRD) Af Amer 106, Est GFR (MDRD) Non-Af 88, BUN/Creatinine Ratio 17.2, Byuwpyn997 H, Calcium 8.8, Total Bilirubin 0.30, AST 15, ALT 20, Alkaline Phosphatase 60, Total Protein 7.2, Albumin 2.6 L, Globulin 4.6 H, Albumin/Globulin Ratio 0.6L 03/03/23 05:43: POC Glucose 243 H 03/03/23 12:55: POC Glucose 365 H Micro: Microbiology 03/02/23 17:20 Wound - Leg, Right Gram Stain - Final 03/02/23 17:20 Wound - Leg, Right Wound Culture - Preliminary GNR non ladler 03/02/23 18:10 Urine Catheter - Catheter Urine [...] 5:42 EDT Reading Location ID and State: [facility] / [place] Tel , Service support , Physical Exam [...] necrotizing fasciitis of the left groin in [facility] in December 2023 and had debridement done. [...] DVT treatment Charges/Coding Visit Charges Inpatient E&M: 12137 Subs Hosp L2 03/03/23 1748 <Electronically signed by Ling Neville MD> Ling Neville MD Cosigner Signature (if applicable): CC: ~ Signed [facility] Work Phone: 1(326) 328-254404-03-[address] Sanders [facility] March 03, 2023 10:38am Note Date/Time March 03, 2023 7:11 am [facility] Medical Records Department [address] [place] [address] Progress Note - Wood Carving Lathe Operator 03/03/23 0709 MR#: [id number] Acct: [id number] Name: MACARIO WALLACE Rep #:[id number] : 1975 47 From: Ace Sanders DO PCP: Dr. Tnio Oreilly MD Status :ADM IN Location: ICU [...] of discharge. This note was generated with [employer] dictation software. It may contain incorrectwords, spelling, [...] 77.6 H, Lymph % (Auto) 15.[address], [address] Francois % (Auto) 3.8, Eos % (Auto) 0.7, [...] 0.30, AST 14 L, ALT 18, Alkaline Loimpziphlx38, Total Protein 7.2, Albumin 2.7 L, Globulin 4.5 H, Albumin/Globulin Ratio 0.6L 03/02/23 14:20: Lactic Acid 2.6 H* 03/02/23 14:20: B-Natriuretic Peptide 68.4 03/02/23 14:24: POC Glucose 250 H 03/02/23 18:00: Troponin I High Sens 29 03/02/23 18:10: Urine Color Yellow, Urine Clarity Clear, Urine pH 6.0, Ur Specific Shelby 1.015, Urine Protein 30 H, Urine Glucose [...] 85.4 H, Lymph % (Auto) 10.[address] L, [address] Franc[place] % (Auto) 1.9, Eos % (Auto) 0.1, Baso % (Auto) 0.6, Absolute Neuts (auto) 9.7 H, Absolute Lymphs (auto) 1.16, Nucleated RBC % 1.1 04/03/23 03:15: Sodium 136, Potassium 4.2, Chloride 98, Carbon Dioxide 35.0 H, Anion Gap 3 L, BUN 13, Creatinine 0.76, Estim Creat Clear Calc 84.11, Est GFR (MDRD) Af Amer 106, Est GFR (MDRD) Non-Af 88, BUN/Creatinine Ratio 17.2, Wsfgztd704 H, Calcium 8.8, Total Bilirubin 0.30, AST [...] 5:42 EDT Reading Location ID and State: [facility] / [place] Tel , Service support , Physical Exam [...] affect normal Charges/Coding Visit Charges Inpatient E&M: 42793 Subs Hosp L3 03/03/23 1038 <Electronically signed by Ace Sanders DO> Cosigner Signature (if applicable): CC: ~ Signed [facility] Work Phone: [phone]) [phone] Gill [facility] March 03, 2023 1:57am Note Date/Time March 03, 2023 1:57 am [facility] Medical Records Department [address] [place] [address] Progress Note 03/03/23152 MR#: [id number] Acct: [id number] Name: MACARIO WALLACE Rep #:[id number] : [...] Cosigner Signature (if applicable): CC: ~ Signed [facility] Work Phone: 1([phone]) 793-855904-02-[address] Box [facility] March 02, 2023 7:52pm Note Date/Time March 02, 2023 7:50 pm [facility] Medical Records Department [address] [place] [address] Consultation - Wood Carving Lathe Operator 03/02/23 1934 MR#: [id number] Acct: [id number] Name: MACARIO WALLACE Rep #:[id number] : [...] Thank you for consulting [facility]. Ace Tommy CONTE will follow up with [...] that these changes are chronic hypoventilatory changes. [facility] Medical History (Updated 03/02/23 @ 19:43 [...] lozenge 2 mg PO PRN PRN Smoking Knkajsnva59/09/23 [History Last Taken 12/08/22] potassium chloride 20 [...] 77.6 H, Lymph % (Auto) 15.[address] L, [address] Franc[place] % (Auto) 3.8, Eos % (Auto) 0.7, [...] 0.30, AST 14 L, ALT 18, Alkaline Vbebykrhgup16, Total Protein 7.2, Albumin 2.7 L, Globulin 4.5 H, Albumin/Globulin Ratio 0.6L 03/02/23 14:20: Lactic Acid 2.6 H* 03/02/23 14:20: B-Natriuretic Peptide 68.4 03/02/23 14:24: POC Glucose 250 H 03/02/23 18:00: Troponin I High Sens 29 03/02/23 18:10: Urine Color Yellow, Urine Clarity Clear, Urine pH 6.0, Ur Specific Shelby 1.015, Urine Protein 30 H, Urine Glucose [...] 15:24 EDT , Charges/Coding Procedures Hospitalists Procedures: 44940 Critial Care 1st Hr 03/02/231951 <Electronically signed by Fadi Box MD> Cosigner Signature (if applicable): CC: FADUMO Hunter; Dr. Berlin Dumont MD; Dr. Tino Oreilly MD; Dr. Ace Sanders DO; Dr. Fadi Box MD; Dr. Jarrett Villalobos MD~ Signed [facility] Work Phone: 1(762) 211-923804-02-[address] Lange [facility] March 02, 2023 6:09pm Note Date/Time March 02, 2023 6:09 pm [facility] Medical Records Department [address] [place] [address] Progress Note - Hospitalist 03/02/23 1807 MR#: [id number] Acct: [id number] Name: MACARIO WALLACE Rep #:[id number] : 1975 47 From: Faarz Lange DO PCP: Dr. Tino Oreilly MD [...] Pulse ox is around 90% on 50% HnR9vibxmwh the BiPAP. Patient overall appears better though her blood gas is not significant improvement over the venous blood gas. I think at this time, we canavoid intubation and continue with the current medical treatment. Discussed with patient's RN. 03/02/231808 <Electronically signed by Faraz Lange DO> Cosigner Signature (if applicable): CC: ~ Signed [facility] Work Phone: 1([phone]) [phone] History and physical note Author Dr. Lange [facility] March 02, 2023 5:02pm Note Date/Time March 02, 2023 4:49 pm [facility] Medical Records Department [address] [place] [address] H&P Exam - Hospitalist 03/02/23 1638 MR#: [id number] Acct: [id number] Name: MACARIO WALLACE Rep #:[id number] : [...] and patient received methylprednisolone, ceftriaxone and azithromycin. [facility] Medical History (Updated 03/02/23 @ 16:45 [...] lozenge 2 mg PO PRN PRN Smoking Fqwqnpfya65/09/23 [History Last Taken 12/08/22] potassium chloride 20 [...] 77.6 H, Lymph % (Auto) 15.[address] L, [address] Franc[place] % (Auto) 3.8, Eos % (Auto) 0.7, [...] 0.30, AST 14 L, ALT 18, Alkaline Akssbuytiuh14, Total Protein 7.2, Albumin 2.7 L, Globulin [...] appears to be healing. Reviewed records through [facility] via [employer]: Patient was found to have necrotizing fasciitis [...] on anticoagulation. Charges/Coding Visit Charges Inpatient E&M: 91080 Init Hosp L3 03/02/23 1702 <Electronically signed by Faraz Lange DO> Cosigner Signature (if applicable): CC: Dr. Tino Oreilly MD; Dr. Faraz Lange, DO~ Signed [facility] Work Phone: 1([phone]) 207-894204-02-[address] Kaiser [facility] March 02, 2023 3:43pm Note Date/Time March 02, 2023 2:32 pm [facility] Medical Records Department [address] [place] [address] Emergency Department Summary 03/02/23 MR#: [id number] Acct: [id number] Name: MACARIO WALLACE Rep #:[id number] : [...] lozenge 2 mg PO PRN PRN Smoking Libqzzizp56/09/23 [History Last Taken 12/08/22] potassium chloride 20 [...] 77.6 H Lymph % (Auto) 15.[address] [place] % (Auto) 3.8 Eos % (Auto) 0.7 [...] (Auto) Neut % (Auto) Lymph % (Auto) St. Franc[place] % (Auto) Eos % (Auto) Baso % [...] Sinus Rhythm (97. EKG is normal. The [place] interval is 132,QRS duration 88 ms, QT duration 358 ms and the axis is normal.) Prior: Unchanged (Prior EKG was dated December 18, 2022) Critical Care Time Critical Care Time: Yes Critical care time (excluding procedures): 30-74 minutes (42), Including time spent: (History, physical, documentation, review of prior records, interpretation of laboratory results initiation of therapy and interpretation ofchest x-ray), Discussing w/Patient &/or Family/Fire Fighters Dispatcher, Discussing w/Consultants, Arranging Admission or Transfer and Performing Direct Patient Care at Bedside (Repeat examinations x3) Discharge Plan Dx/Rx/DC Orders Clinical Impression: Acute on chronic respiratory failure with hypercapnia, Type 2 diabetes mellituswith hyperglycemia, Community acquired pneumonia, Acute on chronic respiratory failure with hypoxemia, Acute bronchospasm, Severe sepsis, Acidosis, lactic Disposition Disposition: Acute Care Hospital [facility] What to do if you have Problems For any increased pain, shortness of breath, bleeding, nausea or vomiting, chestpain, or any unexpected problems, contact your Primary Care Provider. Call [facility] ([phone]) or report to the closest Emergency Room. Call 911 if necessary. 03/02/23 1543 <Electronically signed by Jozef Kaiser MD> Cosigner Signature (if applicable): CC: Dr. Tino Oreilly MD ~ Signed [facility] Work Phone: [phone] Miscellaneous Notes* SN Routine - Bonnie Yuen RN - 02/27/2023 3:53 PM EDT SITUATION: Shelter routine visit completed today. other family members [...] that she is having an insurance changeto [place] on 03/01-will need to follow up on [...] (be specific): wound care. documented in this encounterGreene Memorial Hospital03-29-2023 Miscellaneous Notes* Telephone Encounter - Panfilo Oreilly [...] order. Bharat Gardner RN Care Coordination with [place] [facility]. documented in this encounterGreene Memorial Hospital03-29-2023 Miscellaneous Notes* HH CARE COORDINATION - PER [place] - 02/26/2023 2:30 PM EDT 02/26/23 2;44 PM - 2:47 PM COKE PRODUCTION HEATER called the pt. regarding the convention planner requested orders for herto get a ORTHOPEDIC CAST SPECIALIST to assist with bathing. The pt. stated she did not want a ORTHOPEDIC CAST SPECIALIST once a week and wants her Aide hours under Waiver. COKE PRODUCTION HEATER discussed that [facility] Decorative Engraver Apprentice with [facility] on Aging discussed her getting the ORTHOPEDIC CAST SPECIALIST until they find anAide under Waiver. The pt. stated her daughter can assist her with bathing. The pt. stated that shereceived a phone call from Elaine Merino regarding they needed the measurement for the lift chair.COKE PRODUCTION HEATER discussed that Brandy was sening the measurements to Elaine and COKE PRODUCTION HEATER could follow-up. The pt. stated Elaine was waiting on an Email with the measurements. The pt. supportive of that. The pt. to call COKE PRODUCTION HEATER with any needs. 02/26/23 2:49 PM - 2:51 PM COKE PRODUCTION HEATER called Brandy Garveypankaj De Paz Decorative Engraver Apprentice with [facility] and left her a message that COKE PRODUCTION HEATER spoke to the pt. and [place] Credit Review Manager messaged the DrSusan regarding the pt. getting a ORTHOPEDIC CAST SPECIALIST for bathing assist. The pt. does not want the ORTHOPEDIC CAST SPECIALIST and stated her daughter could assist her with bathing. The pt. stated that Elaine Merino called her and needing the measurements for her to get her lift chair. The pt. waiting to get the Aide under Waiver. COKE PRODUCTION HEATER left her name and phone number. documented in this encounterGreene Memorial Hospital03-28-2023 Miscellaneous Notes* HH CARE COORDINATION - PER [place] - 02/25/2023 2:45 PM EDT 02/25/23 2:49 PM - 2:54 PM COKE PRODUCTION HEATER received a phone call back from Brandy Garveygolden valley memorial hospitalsigifredo De Paz Decorative Engraver Apprentice with [facility] on [facility]. She stated she is following-upwith the regarding if order faxed to a [employer] for the pt. to get a scooter. [...] the pt. to ask about getting a ORTHOPEDIC CAST SPECIALIST to assist with bathing until she could get an Aide under Waiver. COKE PRODUCTION HEATER informed Brandy that JORGE LUISWwill talk with the convention planner regarding a ORTHOPEDIC CAST SPECIALIST for the pt. COKE PRODUCTION HEATER will continue to coordinate withSarah as needed. 02/25/23 3:03 PM COKE PRODUCTION HEATER Emailed Bharat Gardner RN Case Manager - Aung, the pt. Macario Wallace is on Waiver and her Waiver Decorative Engraver Apprentice asked about the pt. getting a ORTHOPEDIC CAST SPECIALIST until she would get an Aide under Waiver. They cannot find an Aide for the pt. yet. Thanks, documented in this encounterGreene Memorial Hospital03-28-2023 Miscellaneous Notes* HH CARE COORDINATION - PER [place] - 02/25/2023 10:00 AM EDT 02/25/23 10:00 AM - 10:06 AM COKE PRODUCTION HEATER called [facility] and spoke to Fabienne Stevens regarding who the pt.'s Waiver Decorative Engraver Apprentice was and she stated Brandy Ross with [employer] on Aging # [phone]. Fabienne stated she could transfer COKE PRODUCTION HEATER to Brandy. COKE PRODUCTION HEATER was transferred and COKE PRODUCTION HEATER left [facility]andy Ross [facility] Decorative Engraver Apprentice a message that the pt. was active with [facility] 02/23/23 for Nursing. COKE PRODUCTION HEATER stated she was calling to coordinate w pt.'kristyne and her services in the home. The pt. asking about an Aide. power wheelchair and lift chair. COKE PRODUCTION HEATER left her name and phone number for Brandy to call COKE PRODUCTION HEATER back. 02/25/23 10:06 AM - 10:11 AM COKE PRODUCTION HEATER called the pt. regarding COKE PRODUCTION HEATER called her [facility] Waiver Decorative Engraver Apprentice Brandy Ross and left her a message. The pt. stated that Brandy came to see her yesterday. She stated that Brandy is trying to find her an Aide. COKE PRODUCTION HEATER asked about the power wheelchair and liftchair. The pt. stated Brandy is looking into equipment for her, also. COKE PRODUCTION HEATER asked the pt. if she received Home Delivered Meals and she stated that she did. COKE PRODUCTION HEATER asked the pt. if she had an ER Medical Alert and she stated that Brandy was ordering her one. COKE PRODUCTION HEATER asked the pt. if she was new on Waiver and she stated she has been on Waiver for a couple of months. COKE PRODUCTION HEATER asked the pt. if she had needed transportation to medical appointments. She stated if her daughter does not take her she [facility]. COKE PRODUCTION HEATER provided the pt. with her name and phone number to call with anyneeds. COKE PRODUCTION HEATER will follow-up with her. 02/25/[address] Panfilo Oreilly - COKE PRODUCTION HEATER called the pt. regarding COKE PRODUCTION HEATER called her [facility] Decorative Engraver Apprentice Brandy Ross and left her a message. The pt. stated that Brandy cameto see her yesterday. She stated that Brandy is trying to find her an Aide. COKE PRODUCTION HEATER asked about the power wheelchair and lift chair. The pt. stated Brandy is looking into equipment for her, also. COKE PRODUCTION HEATER askedthe pt. if she received Home Delivered Meals and she stated that she did. COKE PRODUCTION HEATER asked the pt. if she had an ER Medical Alert and she stated that Brandy was ordering her one. COKE PRODUCTION HEATER asked the pt. if she wasnew on Waiver and she stated she has been on Waiver for a couple of months. COKE PRODUCTION HEATER asked the pt. if she had needed transportation to medical appointments. She stated if her daughter does not take her she uses transportation under her [facility]. COKE PRODUCTION HEATER provided the pt. with her name and phone number to call with any needs. COKE PRODUCTION HEATER will follow-up with her. Brandy Ross [facility] Decorative Engraver Apprentice with [facility] on Aging [phone]. Thank You, documented in this encounterGreene [facility] Hospital03-27-2023 Miscellaneous Notes* Telephone Encounter - Panfilo Oreilly [...] 1 week of discharge. documented in this encounterGreene Memorial Hospital03-27-2023 Miscellaneous Notes* Telephone Encounter - Panfilo Oreilly MD - 02/24/2023 10:03 AM EDT Reviewed. * Telephone Encounter - Keyonna Gross LPN - 02/24/2023 9:34 AM EDT DONELL: Brandy, Decorative Engraver Apprentice with [facility] called to let you know pt returned home on 02-20-23 from [facility] and has skilled care thru [facility] for wound care management. eKyonna Gross LPN documented in this encounterGreene Memorial Hospital03-26-2023 Miscellaneous Notes* SN SOC - Zahra Jackson RN - 02/23/2023 12:52 PM EDT SITUATION: Shelter SOC visit completed today. Friend and brother [...] Need for additional services: Patient agreeable to [employer]IL[employer]ER referrals. Additional concerns to be followed up on: NONE Next visit to focus on (be specific): woudn care, DM, oxygen, edema documented in this encounterGreene Memorial Hospital03-24-2023 History of Present illness Narrative* Marixa Navarro RN - 02/21/2023 3:10 PM EDT TRANSITIONAL CARE MANAGEMENT (TCM) COMMUNITY MONITORING PROGRAM Provider Action/FYI: Navigation Team Please assist with scheduling TCM Hospital discharge follow up. TCM eligible through 03/06. Thank you [facility]- Friday Wound care: L groin [...] to discharge instructions. SUMMARY: Pt discharged from [facility] on 02/20/23. Admitted for: Cellulitis Contact made with patient: Yes Hi my name is Marixa Navarro RN and I am calling from the [facility] on behalf of your PCP,Panfilo Oreilly MD [...] to speak with a social work steam bone press tender to help give you support for any [...] I will send your request to a spares scheduler who will contact and assist you with that appointment. This will give you an opportunity to ask any questions or address any concerns youmay have with your PCP. Inform the patient that if they have any questions or concerns prior to that appointment, to call their PCP's office right away. ACTION TAKEN: Patient desires an appointment - Routed to [facility] [[phone]] for schedulingtelehealth visit (telephonic, virtual visit, or [...] TCM Home Visit Referral Source of Stratification: [facility] Hospital Admission Status: Discharged Readmission Risk [...] upcoming future appts SUMMARY: Pt discharged from [facility] on 02/20/23. Admitted for: Cellulitis SUMMARY OF WHAT HAPPENED WHILE I WAS IN THE HOSPITAL: Ms. Wallace presented to an outside facility with purulent drainage from her wound. WBC was 11, and CT showed left upper thigh thickening and ulceration with small amount of residual subcutaneous gas. She was transferred to [facility] and surgery was consulted. Wound appears [...] ended Carlos Cline RN documented in this encounterGreene Memorial Hospital03-24-2023 Miscellaneous Notes* Telephone Encounter - Mehrdad Michael RN - 02/21/2023 11:11 AM EDT Robert from [facility] called and reports they received the orders and demographic sheet. Faxing over last OV note to fax # [phone]. documented in this encounterGreene Memorial Hospital03-24-2023 Miscellaneous Notes* Telephone Encounter - Panfilo Oreilly [...] care clinicians may also obtain orders from [facility] Virtualist Providers Thank you and we would be happy to answer any questions. Geeta Munguia LPN 02/20/2023 3:40 PM documented in this encounterGreene Memorial Hospital03-24-2023 History of Present illness Narrative* Annie Borgse [facility] - 02/21/2023 8:38 AM EDT TRANSITION CARE [...] name and . Summary: -Pt discharged from [facility] on 02/20/23. -Medication review done: Partial [...] residual subcutaneous gas. She was transferred to [facility] and surgery was consulted. Wound appears [...] by mouth once daily. blood sugar diagnostic ([employer] PRECISION JONAH STRIPS) test strip To use [...] mouth once daily. flash glucose scanning reader (ProStor SystemsSTYLE BAO 14 DAY READER) 1 Device four times daily. flash glucose sensor (ProSt[employer] SystemsSTYLE BAO 14 DAY SENSOR) kit 1 Each [...] 50 points >150; TDD 150 units) Insulin Morris, Disposable, (BD ULTRA-FINE GABINO PEN NEEDLE) 32 [...] for 10 doses. E-rx to DDM Confirms supervisor opening and picking, taking as directed Per discharge summary: Ms. Wallace was started on antibiotics for cellulitis and will continue on Bactrim and should continue a 5 day course at discharge WALKER ROLLATOR SEAT WITH 6 WHEELS - RED Patient requires large seat Preferred pharmacy: e- [facility] [address] - [place] [address] [address] [facility] [phone] [address] [facility] [id number] [place] [address] - [address] [place] [address] [address] [facility] [address] e- [id number] [place] [address] - [address] [facility] [phone] [address] [facility] [address] [facility] [address] [place], [place] [id number] Estimated Creatinine Clearance: 196.2 mL/min (based on [...] 21, 2023 8:39 AM documented in this encounterGreene Memorial Hospital03-23-[address] [facility]03-23-2023 Miscellaneous Notes* Telephone Encounter - Mariam Meredith RN - 02/20/2023 9:52 AM EDT Carolee- [facility]- urgent care- returned call and reports she is pursuing an aide through a waiver, which is totally separate from skilled care. Reports ELVIN Stern at [facility], along with the QUALITY OFFICER, will be talking to patient today about placement into a assisted facility for wound care short term. Carolee asking pcp office, when you get the discharge summary from [facility], please fax to her at fax # [phone]. * Telephone Encounter - Lula Sarmiento LPN - 02/20/2023 8:19 AM EDT Phoned [facility] and they advised Carolee from [facility] was trying to find an aide that could see patient daily. [facility] advised they are unable to take patient back. -Phoned Carolee with [facility] and left message for her to return call to see what POC will be since [facility] not willing to take patient back. * Telephone Encounter - Sandra Potts LPN - 02/19/2023 12:03 PM EDT Call placed to Carolee at [facility] x2 and both times phone would not ring, no sound. Please try back later. Sandra Potts LPN * Telephone Encounter - Panfilo Oreilly MD - 02/19/2023 11:27 AM EDT Patient is currently admitted for necrotizing infection in her groin. Is this in preparation for her discharge? Typically they set patient up with [facility] before discharge. * Telephone Encounter - Diana Mackenzie LPN - 02/19/2023 10:01 AM EDT Carloee from [facility] calling asking for orders for Home health Aide for the patient. Patient currently has assisted with [facility], phone number is [phone]. Can fax order to [phone]. Pending order needs diagnosis. Please advise documented in this encounterGreene Memorial Hospital03-22-2023 Miscellaneous Notes* Telephone Encounter - Sandra Potts [...] after discharge this time. documented in this encounterGreene Memorial Hospital03-21-[address] Ornelas [facility] February 18, 2023 10:57pm Note Date/Time February 18, 2023 5:4 4pm [facility] Medical Records Department [address] [place] [address] Emergency Department Summary 02/18/23 MR#: [id number] Acct: [id number] Name: MACARIO WALLACE Rep #:[id number] : 1975 47 From: Deejay Ornelas MD PCP: Dr. Tino Oreilly MD Status :REG ER Location: ED HPI History of Present Illness Chief Complaint: Abscess Informant: patient Narrative Narrative: Patient presents with worsening abscess. This is a an obese diabetic female who developed abscess in the groin. This hadsurgery at [facility] about 4 weeks ago. Several days [...] not yet contacted her surgeon. [facility] Medical History Abscess Abscess of vulva KERRY [...] lozenge 2 mg PO PRN PRN Smoking Moyoqpjeo58/09/23 [History Last Taken 12/08/22] potassium chloride 20 [...] seen up at [facility] Dr. Johnson. She has had surgery twice [...] 75.7 H Lymph % (Auto) 17.[address] [place] % (Auto) 4.4 Eos % (Auto) 1.3 [...] (Auto) Neut % (Auto) Lymph % (Auto) [place] % (Auto) Eos % (Auto) Baso % [...] 80 mg tablet 100 mg PO QHS nlpdpjiy-pajv-MO-calcium-mins 1 EACH tablet 1 ea PO DAILY [...] Disposition Disposition: Acute Care Hospital Discharge Location: [facility] What to do if you have Problems For any increased pain, shortness of breath, bleeding, nausea or vomiting, chestpain, or any unexpected problems, contact your Primary Care Provider. Call [facility] ([phone]) or report to the closest Emergency Room. Call 911 if necessary. 02/18/23 [id number] <Electronically signed by Deejay Ornelas MD> Cosigner Signature (if applicable): CC: Dr. Tino Oreilly MD ~ Signed [facility] Work Phone: 1(802) 280-900903-21-2023 History of Present illness Narrative* Panfilo Oreilly MD - 02/18/2023 11:08 AM EDT Chief Complaint No chief complaint on file. HPI Macario Wallace is a 47 year old female who presents here today for Hospital Discharge Follow up. Accompanied today by daughter and grand daughter. Patient admitted to [facility] from 12/25 to 01/01 and then [...] Care ordered as pt was active with [employer] for [facility] and [facility] on Aging [...] in ~ 1 weeks time. 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 Left, small lesion on CT Anxiety Cholecystitis s/p cholecystectomy Diabetes mellitus without mention of complication Diabetic neuropathy ([facility]) Seeing Neurology Diastolic heart failure ([facility]) GERD (gastroesophageal reflux disease) History of abnormal cervical Pap smear History of tobacco use Hyperlipidemia Insomnia Microalbuminuria Morbid obesity ([facility]) Narcotic abuse ([facility]) Non-STEMI (non-ST elevated myocardial infarction) ([facility]) 2/2 respiratory illness LOGAN (obstructive sleep apnea) using CPAP, Dr. Dumont Pulmonary embolism ([facility]) Seasonal allergies Unspecified essential hypertension [...] 100 mg BID flash glucose scanning reader (ProStor SystemsSTYLE BAO 14 DAY READER) 1 Device four [...] wheezing/shortness of breath. Use over 5-15minutes. Insulin Morris, Disposable, (BD ULTRA-FINE GABINO PEN NEEDLE) 32 [...] which included preparing to see the patient, [id number] patient care, completing clinical documentation, obtaining and/or reviewing separately obtained history, performing a medically appropriate examination, counseling and educating the pat ient/family/caregiver, and ordering medications, tests, or procedures. Panfilo Oreilly MD documented in this encounterGreene Memorial Hospital03-10-2023 Miscellaneous Notes* Telephone Encounter - Sandra Potts LPN - 02/07/2023 2:45 PM EST Patient notified. Voices understanding. Sandra Potts LPN * Telephone Encounter - Panfilo Oreilly MD - 02/07/2023 11:44 AM EST Referral for wound care placed to help with this wound. Please notify patient. Keep f/u as scheduled. * Telephone Encounter - Mariam Meredith RN - 02/07/2023 10:50 AM EST Shaneka-nurse- [facility]- returned call and given provider's [...] 10:21 AM EST VM [facility], to call PCP office for message below. Tri Sorensen RN * Telephone Encounter - Panfilo Oreilly MD - 02/07/2023 8:50 AM EST Agree with wound care recommendations. If they fax and order I will sign it. Is patient following up with wound care now? * Telephone Encounter - Mariam Meredith RN - 02/07/2023 8:35 AM EST Shaneka- nurse- [facility], reports patient has a stage II pressure sore on outer labia/inner thigh/groin area. Asking for wound dressing orders. Shaneka recommends medi honey, calcium alginate to wound, then dry sterile dressing, change daily. Patient would have to change, on days nurses do not come. Asking provider to write order and fax order to fax # [phone]. documented in this encounterGreene Memorial Hospital03-07-2023 Miscellaneous Notes* Telephone Encounter - Tri Sorensen RN - 02/04/2023 10:28 AM EST Josie, a [facility] nurse with [facility] calling to request Physical Therapy evaluation order for patient. States patient recently moved into a trailer and is having some difficulty getting around and also difficulty with endurance. Reports patient is on oxygen. Please call Josie back at [phone]. Thank you. documented in this encounterGreene Memorial Hospital03-06-2023 History of Present illness Narrative* Gayle Fry - 02/03/2023 2:30 PM EST Per [facility] Eligibility report: patient meets PIRC criteria: MV >= 72 hours MICU stay. Discharge date prior to 01/06/2023 (01/30/2023 dashboard update); not contacted/enrolled in the PIRC Program for this 12/25-01/01/2023 [place] admission. PIR Enrollment Status P[facility]C Call Attempt None Enrolled in PIRC Program? No - Other documented in this [facility]03-06-2023 Miscellaneous Notes* Telephone Encounter - Irena Bland [...] patient. Irena Bland LPN documented in this [facility]03-06-2023 Miscellaneous Notes* Telephone Encounter - Lula Sarmiento LPN - 02/03/2023 8:59 AM EST Phoned patient to reschedule 40 min Hosp follow up appt as provider unavailable today. Patient's VMnot set up and unable to leave a message. Please be sure to reschedule for 40 min visit. documented in this encounterGreene Memorial Hospital03-02-2023 Miscellaneous Notes* Telephone Encounter - Lula Sarmiento [...] a 20 min slot. documented in this encounterGreene Memorial Hospital02-28-2023 History of Present illness Narrative* Raquel Payne RN - 01/28/2023 2:49 PM EST TRANSITION CARE MANAGEMENT (TCM) FOLLOW-UP NOTE Provider Action/FYI Called for TCM. No answer at this time. Voicemail box not set up, unable to leave message. PCP 01/24 cancelled- rescheduled to 02/03 Patient identified by name and date of : NO- no answer Summary: Pt discharged from [facility] on 01/16/23. Admitted for: Purulent drainage from wounds. Concerns: No answer, unable to leave message Fixed Interest Dealer plan for next outreach: Will follow up next week [employer] Education Ordered -: No Signature Raquel Payne RN January 28, 2023 documented in this encounterGreene Memorial Hospital02-21-2023 Miscellaneous Notes* Telephone Encounter - Sandra Potts LPN - 01/21/2023 10:36 AM EST Zhane notified of providers message. Sandra Potts LPN * Telephone Encounter - Panfilo Oreilly MD - 01/21/2023 10:00 AM EST OK to resume assisted. Keep f/u appointment as scheduled. * Telephone Encounter - Georgina Samayoa RN - 01/21/2023 9:50 AM EST Zhane from [facility] calls to report that patient discharged from hospital on 01/16/2023. Zhane asking if it is ok to resume assisted services with patient tomorrow 01/22/2023. Please review and advise, Georgina Samayoa RN documented in this encounterGreene Memorial Hospital02-20-2023 Miscellaneous Notes* Telephone Encounter - Loretta Peres [...] in chart. Margarita TOWNSEND documented in this encounterGreene Memorial Hospital02-17-2023 History of Present illness Narrative* Brissa Kilpatrick, [facility] - 01/17/2023 12:40 PM EST TRANSITION CARE [...] name and . Summary: -Pt discharged from [facility] on 01/16/23. -Medication review done: Partial [...] Care ordered as pt was active with [facility] and [facility] [...] Date Value 11/11/2022 10.1 12/12/2021 10.0 Insulin Morris, Disposable, (BD ULTRA-FINE GABINO PEN NEEDLE) 32 [...] days. Taking as prescribed without any issues [facility] - Dispensed potassium chloride 20 [...] days. Taking as prescribed without any issues [facility] - Dispensed WALKER ROLLATOR SEAT WITH 6 WHEELS - RED Patient requires large seat Preferred pharmacy: [facility] [address] - [place] [address] [address] [facility] [phone] [address] [facility] [address] [address] [facility] [address] [place] [address] - [address] [facility] [phone] [address] [facility] [address] [id number] [place] [address] - [facility] - [id number] [place] [phone] [facility] [address] [address] Estimated Creatinine Clearance: 124.1 mL/min (based on [...] 17, 2023 12:59 PM documented in this encounterGreene Memorial Hospital02-16-2023 Miscellaneous Notes* Telephone Encounter - Panfilo Oreilly MD - 01/16/2023 9:41 AM EST Reviewed and agree. * Telephone Encounter - Georgina Samayoa RN - 01/15/2023 4:48 PM EST Carolee from [facility] calls and states that patient was directly admitted by her surgeon after appointment on 01/13/2023. Patient currently is in [facility]. When patient gets discharged askingfor discharge paperwork to me faxed to [phone]. Georgina Samayoa RN documented in this encounterGreene Memorial Hospital02-16-[address] [facility]02-15-[address] [facility]02-14-[address] [facility]02-14-2023 Miscellaneous Notes* Telephone Encounter - Lula [...] unable to leave message. documented in this encounterGreene Memorial Hospital02-14-[address] [facility]02-14-2023 History of Present illness Narrative* Mimi Crowley RN - 01/14/2023 8:16 AM EST TRANSITION CARE MANAGEMENT (TCM) FOLLOW-UP NOTE Provider Action/FYI Chart reviewed. Pt readmitted to [facility] 01/13/23 for perineal wound infection. Name removed from Care Team d/t readmission. Signature Mimi Crowley RN January 14, 2023 documented in this encounterGreene Memorial Hospital02-13-[address] [facility]02-13-2023 History of Past illness Narrative* Problem Noted Date Resolved Date Necrotizing fasciitis 01/13/2023 01/16/2023 Overview: Pt did not have necrotizing fasciitis during this current hospitalization. Acute cholecystitis 11/06/2007 11/20/2021 documented as of this encounter (statuses as of 01/16/2023) [facility]02-[facility] History of Past illness Narrative* Problem Noted Date Resolved Date Necrotizing fasciitis 01/13/2023 01/16/2023 Overview: Pt did not have necrotizing fasciitis during this current hospitalization. Acute cholecystitis 11/06/2007 11/20/2021 documented as of this encounter (statuses as of 01/17/2023) [facility] History of Past illness Narrative* Problem Noted Date Resolved Date Necrotizing fasciitis 01/13/2023 01/16/2023 Overview: Pt did not have necrotizing fasciitis during this current hospitalization. Acute cholecystitis 11/06/2007 11/20/2021 documented as of this encounter (statuses as of 01/21/2023) [facility] History of Past illness Narrative* Problem Noted Date Resolved Date Necrotizing fasciitis 01/13/2023 01/16/2023 Overview: Pt did not have necrotizing fasciitis during this current hospitalization. Acute cholecystitis 11/06/2007 11/20/2021 documented as of this encounter (statuses as of 01/21/2023) [facility] History of Past illness Narrative* Problem Noted Date Resolved Date Necrotizing fasciitis 01/13/2023 01/16/2023 Overview: Pt did not have necrotizing fasciitis during this current hospitalization. Acute cholecystitis 11/06/2007 11/20/2021 documented as of this encounter (statuses as of 01/28/2023) [address] History of Past illness Narrative* Problem Noted Date Resolved Date Necrotizing fasciitis 01/13/2023 01/16/2023 Overview: Pt did not have necrotizing fasciitis during this current hospitalization. Acute cholecystitis 11/06/2007 11/20/2021 documented as of this encounter (statuses as of 01/30/2023) [address] History of Past illness Narrative* Problem Noted Date Resolved Date Necrotizing fasciitis 01/13/2023 01/16/2023 Overview: Pt did not have necrotizing fasciitis during this current hospitalization. Acute cholecystitis 11/06/2007 11/20/2021 documented as of this encounter (statuses as of 02/03/2023) [address] History of Past illness Narrative* Problem Noted Date Resolved Date Necrotizing fasciitis 01/13/2023 01/16/2023 Overview: Pt did not have necrotizing fasciitis during this current hospitalization. Acute cholecystitis 11/06/2007 11/20/2021 documented as of this encounter (statuses as of 02/03/2023) [address] History of Past illness Narrative* Problem Noted Date Resolved Date Necrotizing fasciitis 01/13/2023 01/16/2023 Overview: Pt did not have necrotizing fasciitis during this current hospitalization. Acute cholecystitis 11/06/2007 11/20/2021 documented as of this encounter (statuses as of 02/20/2023) [address]23 History of Past illness Narrative* Problem Noted Date Resolved Date Necrotizing fasciitis 01/13/2023 01/16/2023 Overview: Pt did not have necrotizing fasciitis during this current hospitalization. Acute cholecystitis 11/06/2007 11/20/2021 documented as of this encounter (statuses as of 02/21/2023) [address]2023 History of Past illness Narrative* Problem Noted Date Resolved Date Necrotizing fasciitis 01/13/2023 01/16/2023 Overview: Pt did not have necrotizing fasciitis during this current hospitalization. Acute cholecystitis 11/06/2007 11/20/2021 documented as of this encounter (statuses as of 02/21/2023) [address]2023 History of Past illness Narrative* Problem Noted Date Resolved Date Necrotizing fasciitis 01/13/2023 01/16/2023 Overview: Pt did not have necrotizing fasciitis during this current hospitalization. Acute cholecystitis 11/06/2007 11/20/2021 documented as of this encounter (statuses as of 02/21/2023) [address]-2023 History of Past illness Narrative* Problem Noted Date Resolved Date Necrotizing fasciitis 01/13/2023 01/16/2023 Overview: Pt did not have necrotizing fasciitis during this current hospitalization. Acute cholecystitis 11/06/2007 11/20/2021 documented as of this encounter (statuses as of 02/24/2023) [address]2023 History of Past illness Narrative* Problem Noted Date Resolved Date Necrotizing fasciitis 01/13/2023 01/16/2023 Overview: Pt did not have necrotizing fasciitis during this current hospitalization. Acute cholecystitis 11/06/2007 11/20/2021 documented as of this encounter (statuses as of 02/25/2023) [address]2023 History of Past illness Narrative* Problem Noted Date Resolved Date Necrotizing fasciitis 01/13/2023 01/16/2023 Overview: Pt did not have necrotizing fasciitis during this current hospitalization. Acute cholecystitis 11/06/2007 11/20/2021 documented as of this encounter (statuses as of 02/25/2023) [address]2023 History of Past illness Narrative* Problem Noted Date Resolved Date Necrotizing fasciitis 01/13/2023 01/16/2023 Overview: Pt did not have necrotizing fasciitis during this current hospitalization. Acute cholecystitis 11/06/2007 11/20/2021 documented as of this encounter (statuses as of 02/26/2023) [address]2023 History of Past illness Narrative* Problem Noted Date Resolved Date Necrotizing fasciitis 01/13/2023 01/16/2023 Overview: Pt did not have necrotizing fasciitis during this current hospitalization. Acute cholecystitis 11/06/2007 11/20/2021 documented as of this encounter (statuses as of 02/26/2023) [address]23 History of Past illness Narrative* Problem Noted Date Resolved Date Necrotizing fasciitis 01/13/2023 01/16/2023 Overview: Pt did not have necrotizing fasciitis during this current hospitalization. Acute cholecystitis 11/06/2007 11/20/2021 documented as of this encounter (statuses as of 03/03/2023) [address]2023 History of Past illness Narrative* Problem Noted Date Resolved Date Necrotizing fasciitis 01/13/2023 01/16/2023 Overview: Pt did not have necrotizing fasciitis during this current hospitalization. Acute cholecystitis 11/06/2007 11/20/2021 documented as of this encounter (statuses as of 03/03/2023) [address]2023 History of Past illness Narrative* Problem Noted Date Resolved Date Necrotizing fasciitis 01/13/2023 01/16/2023 Overview: Pt did not have necrotizing fasciitis during this current hospitalization. Acute cholecystitis 11/06/2007 11/20/2021 documented as of this encounter (statuses as of 03/04/2023) [place] [id number] History of Past illness Narrative* Problem Noted Date Resolved Date Necrotizing fasciitis 01/13/2023 01/16/2023 Overview: Pt did not have necrotizing fasciitis during this current hospitalization. Acute cholecystitis 11/06/2007 11/20/2021 documented as of this encounter (statuses as of 03/05/2023) [address]-2023 History of Past illness Narrative* Problem Noted Date Resolved Date Necrotizing fasciitis 01/13/2023 01/16/2023 Overview: Pt did not have necrotizing fasciitis during this current hospitalization. Acute cholecystitis 11/06/2007 11/20/2021 documented as of this encounter (statuses as of 03/05/2023) [address]23 History of Past illness Narrative* Problem Noted Date Resolved Date Necrotizing fasciitis 01/13/2023 01/16/2023 Overview: Pt did not have necrotizing fasciitis during this current hospitalization. Acute cholecystitis 11/06/2007 11/20/2021 documented as of this encounter (statuses as of 03/05/2023) [address]23 History of Past illness Narrative* Problem Noted Date Resolved Date Necrotizing fasciitis 01/13/2023 01/16/2023 Overview: Pt did not have necrotizing fasciitis during this current hospitalization. Acute cholecystitis 11/06/2007 11/20/2021 documented as of this encounter (statuses as of 03/07/2023) [address]23 History of Past illness Narrative* Problem Noted Date Resolved Date Necrotizing fasciitis 01/13/2023 01/16/2023 Overview: Pt did not have necrotizing fasciitis during this current hospitalization. Acute cholecystitis 11/06/2007 11/20/2021 documented as of this encounter (statuses as of 03/07/2023) [address]23 History of Past illness Narrative* Problem Noted Date Resolved Date Necrotizing fasciitis 01/13/2023 01/16/2023 Overview: Pt did not have necrotizing fasciitis during this current hospitalization. Acute cholecystitis 11/06/2007 11/20/2021 documented as of this encounter (statuses as of 03/08/2023) [address]23 History of Past illness Narrative* Problem Noted Date Resolved Date Necrotizing fasciitis 01/13/2023 01/16/2023 Overview: Pt did not have necrotizing fasciitis during this current hospitalization. Acute cholecystitis 11/06/2007 11/20/2021 documented as of this encounter (statuses as of 03/08/2023) [address]23 History of Past illness Narrative* Problem Noted Date Resolved Date Necrotizing fasciitis 01/13/2023 01/16/2023 Overview: Pt did not have necrotizing fasciitis during this current hospitalization. Acute cholecystitis 11/06/2007 11/20/2021 documented as of this encounter (statuses as of 03/09/2023) [address]2023 History of Past illness Narrative* Problem Noted Date Resolved Date Necrotizing fasciitis 01/13/2023 01/16/2023 Overview: Pt did not have necrotizing fasciitis during this current hospitalization. Acute cholecystitis 11/06/2007 11/20/2021 documented as of this encounter (statuses as of 03/11/2023) [address]23 History of Past illness Narrative* Problem Noted Date Resolved Date Necrotizing fasciitis 01/13/2023 01/16/2023 Overview: Pt did not have necrotizing fasciitis during this current hospitalization. Acute cholecystitis 11/06/2007 11/20/2021 documented as of this encounter (statuses as of 03/12/2023) [address]23 History of Past illness Narrative* Problem Noted Date Resolved Date Necrotizing fasciitis 01/13/2023 01/16/2023 Overview: Pt did not have necrotizing fasciitis during this current hospitalization. Acute cholecystitis 11/06/2007 11/20/2021 documented as of this encounter (statuses as of 03/13/2023) [address]23 History of Past illness Narrative* Problem Noted Date Resolved Date Necrotizing fasciitis 01/13/2023 01/16/2023 Overview: Pt did not have necrotizing fasciitis during this current hospitalization. Acute cholecystitis 11/06/2007 11/20/2021 documented as of this encounter (statuses as of 03/13/2023) [address]-2023 History of Past illness Narrative* Problem Noted Date Resolved Date Necrotizing fasciitis 01/13/2023 01/16/2023 Overview: Pt did not have necrotizing fasciitis during this current hospitalization. Acute cholecystitis 11/06/2007 11/20/2021 documented as of this encounter (statuses as of 03/15/2023) [address]23 History of Past illness Narrative* Problem Noted Date Resolved Date Necrotizing fasciitis 01/13/2023 01/16/2023 Overview: Pt did not have necrotizing fasciitis during this current hospitalization. Acute cholecystitis 11/06/2007 11/20/2021 documented as of this encounter (statuses as of 03/20/2023) [address]23 History of Past illness Narrative* Problem Noted Date Resolved Date Necrotizing fasciitis 01/13/2023 01/16/2023 Overview: Pt did not have necrotizing fasciitis during this current hospitalization. Acute cholecystitis 11/06/2007 11/20/2021 documented as of this encounter (statuses as of 03/23/2023) [address]23 History of Past illness Narrative* Problem Noted Date Resolved Date Necrotizing fasciitis 01/13/2023 01/16/2023 Overview: Pt did not have necrotizing fasciitis during this current hospitalization. Acute cholecystitis 11/06/2007 11/20/2021 documented as of this encounter (statuses as of 03/27/2023) [address]23 History of Past illness Narrative* Problem Noted Date Resolved Date Necrotizing fasciitis 01/13/2023 01/16/2023 Overview: Pt did not have necrotizing fasciitis during this current hospitalization. Acute cholecystitis 11/06/2007 11/20/2021 documented as of this encounter (statuses as of 03/27/2023) [address]23 History of Past illness Narrative* Problem Noted Date Resolved Date Necrotizing fasciitis 01/13/2023 01/16/2023 Overview: Pt did not have necrotizing fasciitis during this current hospitalization. Acute cholecystitis 11/06/2007 11/20/2021 documented as of this encounter (statuses as of 03/27/2023) [facility]02-13-2023 History of Past illness Narrative* Problem Noted Date Resolved Date Necrotizing fasciitis 01/13/2023 01/16/2023 Overview: Pt did not have necrotizing fasciitis during this current hospitalization. Acute cholecystitis 11/06/2007 11/20/2021 documented as of this encounter (statuses as of 03/28/2023) [address]23 History of Past illness Narrative* Problem Noted Date Resolved Date Necrotizing fasciitis 01/13/2023 01/16/2023 Overview: Pt did not have necrotizing fasciitis during this current hospitalization. Acute cholecystitis 11/06/2007 11/20/2021 documented as of this encounter (statuses as of 04/03/2023) [address]23 History of Past illness Narrative* Problem Noted Date Resolved Date Necrotizing fasciitis 01/13/2023 01/16/2023 Overview: Pt did not have necrotizing fasciitis during this current hospitalization. Acute cholecystitis 11/06/2007 11/20/2021 documented as of this encounter (statuses as of 04/10/2023) [place] [address] History of Past illness Narrative* Problem Noted Date Resolved Date Necrotizing fasciitis 01/13/2023 01/16/2023 Overview: Pt did not have necrotizing fasciitis during this current hospitalization. Acute cholecystitis 11/06/2007 11/20/2021 documented as of this encounter (statuses as of 04/26/2023) [address]23 History of Past illness Narrative* Problem Noted Date Resolved Date Necrotizing fasciitis 01/13/2023 01/16/2023 Overview: Pt did not have necrotizing fasciitis during this current hospitalization. Acute cholecystitis 11/06/2007 11/20/2021 documented as of this encounter (statuses as of 04/26/2023) [address]23 History of Past illness Narrative* Problem Noted Date Resolved Date Necrotizing fasciitis 01/13/2023 01/16/2023 Overview: Pt did not have necrotizing fasciitis during this current hospitalization. Acute cholecystitis 11/06/2007 11/20/2021 documented as of this encounter (statuses as of 04/29/2023) [address]23 History of Past illness Narrative* Problem Noted Date Resolved Date Necrotizing fasciitis 01/13/2023 01/16/2023 Overview: Pt did not have necrotizing fasciitis during this current hospitalization. Acute cholecystitis 11/06/2007 11/20/2021 documented as of this encounter (statuses as of 04/29/2023) [address]23 History of Past illness Narrative* Problem Noted Date Resolved Date Necrotizing fasciitis 01/13/2023 01/16/2023 Overview: Pt did not have necrotizing fasciitis during this current hospitalization. Acute cholecystitis 11/06/2007 11/20/2021 documented as of this encounter (statuses as of 05/01/2023) [facility]02-13-2023 History of Past illness Narrative* Problem Noted Date Resolved Date Necrotizing fasciitis 01/13/2023 01/16/2023 Overview: Pt did not have necrotizing fasciitis during this current hospitalization. Acute cholecystitis 11/06/2007 11/20/2021 documented as of this encounter (statuses as of 05/01/2023) [address]23 History of Past illness Narrative* Problem Noted Date Resolved Date Necrotizing fasciitis 01/13/2023 01/16/2023 Overview: Pt did not have necrotizing fasciitis during this current hospitalization. Acute cholecystitis 11/06/2007 11/20/2021 documented as of this encounter (statuses as of 05/02/2023) [address]-2023 History of Past illness Narrative* Problem Noted Date Resolved Date Necrotizing fasciitis 01/13/2023 01/16/2023 Overview: Pt did not have necrotizing fasciitis during this current hospitalization. Acute cholecystitis 11/06/2007 11/20/2021 documented as of this encounter (statuses as of 05/02/2023) [address]23 History of Past illness Narrative* Problem Noted Date Resolved Date Necrotizing fasciitis 01/13/2023 01/16/2023 Overview: Pt did not have necrotizing fasciitis during this current hospitalization. Acute cholecystitis 11/06/2007 11/20/2021 documented as of this encounter (statuses as of 05/05/2023) [address]-2023 History of Past illness Narrative* Problem Noted Date Resolved Date Necrotizing fasciitis 01/13/2023 01/16/2023 Overview: Pt did not have necrotizing fasciitis during this current hospitalization. Sepsis 12/25/2022 05/09/2023 Acute cholecystitis 11/06/2007 11/20/2021 documented as of this encounter (statuses as of 05/15/2023) [address]-2023 History of Past illness Narrative* Problem Noted Date Resolved Date Necrotizing fasciitis 01/13/2023 01/16/2023 Overview: Pt did not have necrotizing fasciitis during this current hospitalization. Sepsis 12/25/2022 05/09/2023 Acute cholecystitis 11/06/2007 11/20/2021 documented as of this encounter (statuses as of 05/23/2023) [address]-2023 History of Past illness Narrative* Problem Noted Date Resolved Date Necrotizing fasciitis 01/13/2023 01/16/2023 Overview: Pt did not have necrotizing fasciitis during this current hospitalization. Sepsis 12/25/2022 05/09/2023 Acute cholecystitis 11/06/2007 11/20/2021 documented as of this encounter (statuses as of 05/23/2023) [place] [address] History of Past illness Narrative* Problem Noted Date Resolved Date Necrotizing fasciitis 01/13/2023 01/16/2023 Overview: Pt did not have necrotizing fasciitis during this current hospitalization. Sepsis 12/25/2022 05/09/2023 Acute cholecystitis 11/06/2007 11/20/2021 documented as of this encounter (statuses as of 05/29/2023) [address]-2023 History of Past illness Narrative* Problem Noted Date Resolved Date Necrotizing fasciitis 01/13/2023 01/16/2023 Overview: Pt did not have necrotizing fasciitis during this current hospitalization. Sepsis 12/25/2022 05/09/2023 Acute cholecystitis 11/06/2007 11/20/2021 documented as of this encounter (statuses as of 06/06/2023) [address]-2023 History of Past illness Narrative* Problem Noted Date Diagnosed Date Resolved Date Necrotizing fasciitis 01/13/20232022 Overview: Pt did not have necrotizing fasciitis during this current hospitalization. Sepsis 12/25/2022 05/09/2023 Acute cholecystitis 11/06/2007 11/20/20 21 documented as of this encounter (statuses as of 06/25/2023) [address]-2023 History of Past illness Narrative* Problem Noted Date Diagnosed Date Resolved Date Necrotizing fasciitis 01/13/20232022 Overview: Pt did not have necrotizing fasciitis during this current hospitalization. Sepsis 12/25/2022 05/09/2023 Acute cholecystitis 11/06/2007 11/20/20 21 documented as of this encounter (statuses as of 07/09/2023) [address]-2023 History of Past illness Narrative* Problem Noted Date Diagnosed Date Resolved Date Necrotizing fasciitis 01/13/20232022 Overview: Pt did not have necrotizing fasciitis during this current hospitalization. Sepsis 12/25/2022 05/09/2023 Acute cholecystitis 11/06/2007 11/20/20 21 documented as of this encounter (statuses as of 07/09/2023) [address]-2023 History of Past illness Narrative* Problem Noted Date Diagnosed Date Resolved Date Necrotizing fasciitis 01/13/20232022 Overview: Pt did not have necrotizing fasciitis during this current hospitalization. Sepsis 12/25/2022 05/09/2023 Acute cholecystitis 11/06/2007 11/20/20 21 documented as of this encounter (statuses as of 07/10/2023) [address]-2023 History of Past illness Narrative* Problem Noted Date Diagnosed Date Resolved Date Necrotizing fasciitis 01/13/20232022 Overview: Pt did not have necrotizing fasciitis during this current hospitalization. Sepsis 12/25/2022 05/09/2023 Acute cholecystitis 11/06/2007 11/20/20 21 documented as of this encounter (statuses as of 07/18/2023) [address]-2023 History of Past illness Narrative* Problem Noted Date Diagnosed Date Resolved Date Necrotizing fasciitis 01/13/20232022 Overview: Pt did not have necrotizing fasciitis during this current hospitalization. Sepsis 12/25/2022 05/09/2023 Acute cholecystitis 11/06/2007 11/20/20 21 documented as of this encounter (statuses as of 07/23/2023) [address]-2023 History of Past illness Narrative* Problem Noted Date Diagnosed Date Resolved Date Necrotizing fasciitis 01/13/20232022 Overview: Pt did not have necrotizing fasciitis during this current hospitalization. Sepsis 12/25/2022 05/09/2023 Acute cholecystitis 11/06/2007 11/20/20 21 documented as of this encounter (statuses as of 07/30/2023) [address]-2023 History of Past illness Narrative* Problem Noted Date Diagnosed Date Resolved Date Necrotizing fasciitis 01/13/20232022 Overview: Pt did not have necrotizing fasciitis during this current hospitalization. Sepsis 12/25/2022 05/09/2023 Acute cholecystitis 11/06/2007 11/20/20 21 documented as of this encounter (statuses as of 07/30/2023) [address]-2023 History of Past illness Narrative* Problem Noted Date Diagnosed Date Resolved Date Necrotizing fasciitis 01/13/20232022 Overview: Pt did not have necrotizing fasciitis during this current hospitalization. Sepsis 12/25/2022 05/09/2023 Acute cholecystitis 11/06/2007 11/20/20 21 documented as of this encounter (statuses as of 08/05/2023) [address]-2023 History of Past illness Narrative* Problem Noted Date Diagnosed Date Resolved Date Necrotizing fasciitis 01/13/20232022 Overview: Pt did not have necrotizing fasciitis during this current hospitalization. Sepsis 12/25/2022 05/09/2023 Acute cholecystitis 11/06/2007 11/20/20 21 documented as of this encounter (statuses as of 08/06/2023) [address]-2023 History of Past illness Narrative* Problem Noted Date Diagnosed Date Resolved Date Necrotizing fasciitis 01/13/20232022 Overview: Pt did not have necrotizing fasciitis during this current hospitalization. Sepsis 12/25/2022 05/09/2023 Acute cholecystitis 11/06/2007 11/20/20 21 documented as of this encounter (statuses as of 02/08/2024) [address]23 Miscellaneous Notes* Telephone Encounter - Lula Sarmiento LPN - 01/13/2023 1:04 PM EST Records from [facility] forwarded to Carolee as requested. * Telephone Encounter - Sandra Potts LPN - 01/08/2023 4:24 PM EST Discharge summary requested from [facility] medical records at this time. Sandra Potts LPN * Telephone Encounter - Irena Bland LPN - 01/06/2023 4:51 PM EST Carolee R with [facility] calls to report that pt was discharged from [facility] on 01/01/23. Carolee is asking for discharge summary to be faxed to her when office receives it. . Irena Bland LPN documented in this encounterGreene [facility] Miscellaneous Notes* Telephone Encounter - Lula Sarmiento LPN - 01/07/2023 11:12 AM EST Patient has follow up visit 01/14/23 for 40 min-will see her as Hosp follow up and reschedule RTN follow up. * Telephone Encounter - Panfilo Oreilly MD - 12/27/2022 8:01 AM EST Reviewed and agree. When she is finally discharged from [facility], will need f/u in 1 week for 40 minute OV. * Telephone Encounter - Christi Barney RN - 12/26/2022 6:54 PM EST [facility] [place] manager care calling to let PCP know patient is in [facility] ICU with soft tissue infection. This nurse cancelled patient's hospital discharge follow up appointment from 12/20 hospital discharge which was scheduled for 12/27/22 with PCP. Christi Barney RN documented in this encounterGreene [facility]02-[facility]-2023 Miscellaneous Notes* Telephone Encounter - Loretta Peres [...] in chart. Margarita TOWNSEND documented in this encounterGreene [facility]02-03-2023 Miscellaneous Notes* Telephone Encounter - Sandra Potts LPN - 01/03/2023 2:09 PM EST [place] 11/08/2022 NOV 01/14/2023 Sandra Potts LPN * Telephone Encounter - Vanessa Ignacio [facility] - 01/03/2023 8:30 AM EST Patient has [...] patient. Vanessa Ignacio [employer] documented in this encounterGreene [facility]02-02-2023 Miscellaneous Notes* Telephone Encounter - MEERA Fish - 01/02/2023 3:05 PM EST Telephoned the patient regarding missed appt. Unable to reach pt. Voicemail is not set up. * Telephone Encounter - Robert Sanchez [facility] - 01/02/2023 2:41 PM EST Patient was a no-show for PharmD visit today. Appears she was hospitalized and recently discharged home. Primary Care Pharmacy Rescheduling Outreach Call center, please contact patient and reschedule in person visit for Diabetes management within ~3-8 week(s) (priority is for patient to have hospital f/up visit with PCP first). (Visit length: 30-60 minutes) Thank you, Robert Sanchez [facility] 01/02/2023 2:42 PM documented in this encounterGreene [facility] Hospital02-02-2023 History of Present illness Narrative* Mimi Crowley RN - 01/02/2023 11:19 AM EST TRANSITIONAL CARE MANAGEMENT (TCM) COMMUNITY MONITORING PROGRAM Provider Action/FYI: PCP appt 01/14/23 [place] [facility] following Spoke with patient, states pain is tolerable with pain medication, no sob, no N/V, tolerating diet,drinking fluids, blood glucose this morning was 128, staying with her niece for a week, is doing better. SUMMARY: Pt discharged from [facility] on 01/01/23. Admitted for: Necrotizing soft tissue infection Contact made with patient: Yes Hi my name is Mimi Crowley RN and I am calling from the [facility] on behalf of your PCP,Panfilo Oreilly MD [...] to speak with a social work steam bone press tender to help give you support for any [...] I will send your request to a spares scheduler who will contact and assist you [...] TCM Home Visit Referral Source of Stratification: [facility] Hospital Admission Status: Discharged Readmission Risk Score: 37 PAMELA Score: 4 Patient meets program referral criteria: No Patient does not qualify for High Risk TCM Home Visit program due to: Discharged home, does not meet program criteria Mimi Crowley RN January 02, 2023 11:25 AM documented in this encounterGreene Memorial Hospital02-02-2023 History of Present illness Narrative* Brissa Kilpatrick, [facility] - 01/02/2023 10:24 AM EST [...] name and . Summary: -Pt discharged from [facility] on 01/01/23. -Medication review done: Partial [...] mouth once daily. flash glucose scanning reader ([employer] Systems[employer]YLE BAO 14 DAY READER) 1 Device four times daily. Taking as prescribed without any issues Discontinued: 12/31/2022 1:30 PM flash glucose sensor ([employer] SystemsSTYLE BAO 14 DAY SENSOR) kit 1 Each once daily. Use 1 device for up to 14 days to monitor sugars 4 times per day. [facility] furosemide (LASIX) 20 mg tablet Take 1 tablet by mouth twice daily. Take BID with 80 mg lasix to equal 100 mg BID furosemide (LASIX) 40 mg tablet Take 1-2 tablets BID for lower extremity edema Discontinued: 12/30/2022 8:05 AM gabapentin (NEURONTIN) 800 mg tablet TAKE 1 TABLET BY MOUTH THREE TIMES A DAY [facility] insulin glargine U-300 conc (TOUJEO MAX U-300 SOLOSTAR) 300 unit/mL (3 mL) inpn Inject 105 Units subcutaneously twice daily. insulin lispro (HUMALOG KWIKPEN INSULIN) 100 unit/mL Inject 50 units plus sliding scale three timesdaily before meals (Sliding scale: 2 units for every 50 points >150; TDD 150 units) Hemoglobin A1C (%) Date Value 11/11/2022 10.1 12/12/2021 10.0 Insulin Morris, Disposable, (BD ULTRA-FINE GABINO PEN NEEDLE) 32 [...] for pain for up to 5 days. Photos [facility] Like #30 - [place] Counseled on AEs and to monitor for [...] RED Patient requires large seat Preferred pharmacy: [facility] - [id number] - [place] [address] - [address] [phone] [address] [facility] [address] [facility] AID #[id number] [place] [address] - [address] [facility] - [phone] [address] [facility] [address] [employer] [address] - [place] [address] [address] [facility] [phone] [address] [facility] [address] Estimated Creatinine Clearance: 128.2 mL/min (based on SCr of 0.9 mg/dL). Estimated Glomerular Filtration Rate (mL/min/1.73m ) Date Value 01/01/2023 81 eGFR- (no units) Date Value 01/23/2022 >60 Additional follow up: Next 5 Appointments Date and Time Provider Department Dept Phone 01/02/2023 2:00 PM Robert JESUS MED [facility] [phone] 01/14/2023 11:00 AM Panfilo Oreilly [facility] [phone] Interventions Made: Patient education/Medication counseling Pharmacist Recommendations Made None Care Coordination: None at this time Time spent on patient: 15-30 minutes Brissa Kilpatrick RPh January 02, 2023 10:25 AM documented in this encounterGreene [facility] Hospital02[facility]01-[address] [facility]01[facility] [facility]01-31-2023 Miscellaneous Notes * Telephone Encounter - [...] you. Diana Mackenzie LPN documented in this encounterGreene Memorial Hospital01-31-[address] [facility]30-[address] [facility]01-29-[address] [facility]01-28-[address] [facility]01-28-2023 NoteHNO ID: [id number] Author: Interface Note Service: ? Author Type: ? Type: Progress Notes Filed: 12/28/2022 4:21 AM Note Text: Epic Scheduled Downtime: 12/28/2022 1:00:00 AM to 12/28/2022 3:56[facility] Miscellaneous Notes* Telephone Encounter - Silvino Martinez LPN - 12/27/2022 3:46 PM EST Patient phones requesting refills as follows: Requested Prescriptions Pending Prescriptions Disp Refills gabapentin (NEURONTIN) 800 mg tablet [Pharmacy Med Name: Gabapentin 800MG TABS] 90 tablet 2 Sig: TAKE 1 TABLET BY MOUTH THREE TIMES A DAY Please review and advise. Silvino Martinez LPN documented in this encounterGreene Memorial Hospital01-27-[address] [facility]01-26-[address] [facility]01-26-[address] [facility]01-25-[address] [facility]01-25-[address] [facility]01-25-2023 History of Present illness Narrative* Jersey Key APRN.NIKIA - 12/25/2022 2:22 AM EST Images from the original note were not included. Critical Care Transport Note Patient Name: Macario Wallace Service Date: 12/25/2022 Referring Physician: Job Accepting Physician: Delfino Referring Facility: [facility] Accepting Facility: [facility] SUBJECTIVE/CHIEF COMPLAINT: left thigh abscess REASON [...] DM2, LOGAN, and NSTEMI. She presented to [facility] on 12/25/2022 for evaluation of leftthigh [...] level of surgical intervention not available at [facility]. At this time, the physician managing the patient requested transfer to [facility] for tertiary and/or quaternary services unavailable at the referring facility. Patient condition at time of exam was: Acutely ill and emergent surgical intervention. Due to the unique circumstances of the patient, it was determined that this was the closest, most appropriate facility by referring physician. The physician managing the patient requested the [facility] Critical [facility] Team transport and treat the patient for the purpose of tertiary care, evaluation, and management of her surgical condition(s). Air medical transport was requested to reduce the efx-am-cjchvawz time, 20 minutes by air vs. approximately [...] daily with breakfast.^Disp: 30 tablet^Rfl: 5 Insulin Morris, Disposable, (BD ULTRA-FINE GABINO PEN NEEDLE) 32 [...] daily.^Disp: 90 tablet^Rfl: 1 flash glucose sensor (ProStor SystemsSTYLE BAO 14 DAY SENSOR) kit^1 Each once [...] For this reason she will transfer to [facility] for emergent OR. Gangrene to left [...] VS en route - expedite transfer to [facility] for further intervention The transport was completed without significant incident or change in the patient's status. The patient was transported to the [facility] by [facility]otor (Helicopter) for tertiary and/or quaternary evaluation and management of her Emergent Surgical condition(s). Upon arrival to the receiving facility, a jlga-ws-twrw report was given to bedside nursing staff Jacqueline and Resident / PA / QUALITY OFFICER: Dr. Kelley . Patient care was transferred. [...] Jersey Key APRN.CNP Acute Care Nurse Practitioner [facility] Critical Care Transport Team documented in this encounterGreene Memorial Hospital01-25-[address] Kaiser [facility] December 24, 2022 11:54pm Note Date/Time December 24, 2022 1 0:26pm [facility] Medical Records Department [address] [place] [address] Emergency Department Summary 12/24/22 MR#: [id number] Acct: [id number] Name: MACARIO WALLACE Rep #:[id number] : [...] per patient) Recent Illness/Hospitalization: Yes [facility] Medical History Abscess Abscess of vulva KERRY [...] lozenge 2 mg PO PRN PRN Smoking Twqiriehy33/09/23 [History Last Taken 12/08/22] potassium chloride 20 [...] exertion and other Details: Patient is just [place] exertion is chronic. ; Denies cough, orthopnea [...] spoke with the patient and daughter. [facility] If there is no availability [facility] will try [employer] Lab Data Attestation: I reviewed the patient's [...] 75.3 H Lymph % (Auto) 16.[address] [place] % (Auto) 4.2 Eos % (Auto) 2.0 [...] (Auto) Neut % (Auto) Lymph % (Auto) [place] % (Auto) Eos % (Auto) Baso % [...] 23:26 EST Reading Location ID and State: [facility] / [place] Tel [phone], Service support , EKG Initial EKG: Attestation: I personally reviewed and interpreted this EKG as follows: Interpretation: Sinus Tachycardia (Sinus tachycardia otherwise EKG is normal. Rate is 105. [place] interval is 134 ms. QS duration 76 ms. QT duration 318 ms. [place] is normal.) Prior: Unchanged Critical Care Time Critical Care Time: Yes Critical care time (excluding procedures): 30-74 minutes (33), Including time spent: (History, physical, documentation, independent review of laboratory results, initiation of therapy, review of prior records), Discussing w/Patient &/or Family/Fire Fighters Dispatcher, Discussing w/Consultants (Case discussed with surgeon on- [...] 80 mg tablet 100 mg PO QHS vuulqezd-sqjr-JA-calcium-mins 1 EACH tablet 1 ea PO DAILY [...] Disposition Disposition: Acute Care Hospital Discharge Location: [facility] What to do if you have Problems For any increased pain, shortness of breath, bleeding, nausea or vomiting, chestpain, or any unexpected problems, contact your Primary Care Provider. Call [facility] ([phone]) or report to the closest Emergency Room. Call 911 if necessary. 12/24/22 1964 <Electronically signed by Jozef Kaiser MD> Cosigner Signature (if applicable): CC: Dr. Tino Oreilly MD ~ Signed [facility] Work Phone: 1(982) 745-647101-24-2023 Miscellaneous Notes* Telephone Encounter - Lula Sarmiento LPN - 12/24/2022 6:25 PM EST Patient stated she will go to [facility]. PCP updated. * Telephone Encounter - Panfilo [...] PCP can advise her or Robert Sanchez [facility]. Explained that message would be sent to Dr. Oreilly for review but will also forward to Robert. Please call pt with advise. Thank you. documented in this encounterGreene Memorial Hospital01-20-[address] Wilkes [facility] December 20, 2022 2:33pm Note Date/Time December 20, 2022 2 :29pm [facility] Medical Records Department [address] [place] [address] Instructions for Home/Discharge Instructions 12/20/22 1429 MR#: [id number] Acct: [id number] Name: MACARIO WALLACE Rep #:[id number] : [...] 80 mg tablet 100 mg PO QHS qqsrzhmv-qtka-ZZ-calcium-mins 1 EACH tablet 1 ea PO DAILY [...] MD; Dr. Chris Gill MD ~ Signed [facility] Work Phone: 1(787) 350-227701-19-[address] Wilkes [facility] December 19, 2022 3:25pm Note Date/Time December 19, 2022 3 :15pm [facility] Medical Records Department [address] [place] [address] Progress Note - Hospitalist 12/19/22 1453 MR#: [id number] Acct: [id number] Name: MACARIO WALLACE Rep #:[id number] : 1975 47 From: Liam regalado MD PCP: Dr. Tino Oreilly MD Status :ADM IN Location: [place] [address] Subjective Subjective Somnolent but arousable Objective Data [...] 84.5 H, Lymph % (Auto) 8.9 L, [place] % (Auto) 5.2, Eos % (Auto) 0.3, [...] Clarity Clear, Urine pH 6.0, Ur Specific Shelby 1.010, Urine Protein Negative, Urine Glucose (UA) [...] 83.2 H, Lymph % (Auto) 9.3 L, [address] % (Auto) 6.2, Eos % (Auto) 0.3, [...] Type 2 diabetes mellitus: QUALIFIERS: Diabetes mellitus watermelon harvesting supervisor insulin use: with correction use Diabetes mellitus complication status: with hyperosmolarity Diabetes mellitus complication detail: with coma Qualified Code(s): E11.01 - Type 2 diabetes mellitus with hyperosmolarity with coma; Z79.4 - [facility] (current) use of insulin (5) Essential hypertension: [...] DVT: Lovenox Charges/Coding Visit Charges Inpatient E&M: 06040 Subs Hosp L2 12/19/22 1522 <Electronically signed by Liam Wilkes MD> Cosigner Signature (if applicable): CC: ~ Signed [facility] Work Phone: 1(214) 872-285901-19-2023 History and physical note Author Dr. Gill [facility] December 19, 2022 6:08am Note Date/Time December 18, 2022 1 1:45pm [facility] Medical Records Department [address] [place] [address] H&P Exam - Hospitalist 12/18/22 2345 MR#: [id number] Acct: [id number] Name: MACARIO WALLACE Rep #:[id number] : 1975 47 From: Chris Gill MD PCP: Dr. Tino Oreilly MD Status :ADM IN Location: [place] [id number] 1 HPI - General General Date of [...] 4 to 5 L nasal cannula oxygen euvvvo-wgm-flpfl and CPAP at night tosleep. Reportedly patient did not use either her CPAP oxygen on the day of presentation. [facility] Medical History (Updated 12/19/22 @ 00:18 [...] lozenge 2 mg PO PRN PRN Smoking Xfjilzpdw74/09/23 [History Last Taken 12/08/22] prednisone 20 mg [...] 84.5 H, Lymph % (Auto) 8.9 L, [address] % (Auto) 5.2, Eos % (Auto) 0.3, [...] Clarity Clear, Urine pH 6.0, Ur Specific Shelby 1.010, Urine Protein Negative, Urine Glucose (UA) [...] mellitus complication status: with hyperosmolarity Diabetes mellitus watermelon harvesting supervisor insulin use: with watermelon harvesting supervisor use Qualified Code(s): E11.01 - Type 2 diabetes mellitus with hyperosmolarity with coma; Z79.4 - [facility] (current) use of insulin (5) Essential hypertension: [...] Lovenox ordered. Charges/Coding Visit Charges Inpatient E&M: 22093 Init Hosp L3 12/19/22 0023 <Electronically signed by Chris Gill MD> Cosigner Signature (if applicable): CC: Dr. Tino Oreilly MD; Dr. Chris Gill MD~ Signed ADDENDUM by Dr. Chris Gill MD on 12/19/22 at 0607 Addendum Chronic respiratory failure Stable 12/19/22 0608<Electronically signed by Chris Gill MD> Cosigner Signature (if applicable): cc: Dr. Tino Oreilly MD; Dr. Chris Gill MD ~* Signed [facility] Work Phone: [phone]) 731-438501-19-[address] Quintero [facility] December 19, 2022 12:03am Note Date/Time December 18, 2022 9 :58pm [facility] Medical Records Department [address] [place] [address] Emergency Department Summary 12/18/22 MR#: [id number] Acct: [id number] Name: MACARIO WALLACE Rep #:[id number] : 1975 47 From: Irina Quintero MD PCP: Dr. Tino Oreilly MD Status :ADM IN Location: [place] [address] HPI History of Present Illness Chief Complaint: [...] walk she agreed to transport. [facility] Medical History Abscess Abscess of vulva KERRY [...] lozenge 2 mg PO PRN PRN Smoking Qafwdqspy39/09/23 [History Last Taken 12/08/22] prednisone 20 mg [...] decision making narrative: Patient is placed on search consultant. EKG, chest x-ray, lab work obtained. Urinalysis [...] 84.5 H Lymph % (Auto) 8.[address] [place] % (Auto) 5.2 Eos % (Auto) 0.3 [...] Clarity Clear Urine pH 6.0 Ur Specific Shelby 1.010 Urine Protein Negative Urine Glucose (UA) [...] 80 mg tablet 100 mg PO QHS wyzkoitf-cyxs-KQ-calcium-mins 1 EACH tablet 1 ea PO DAILY [...] Provider] - Disposition Disposition: Acute Care Hospital [facility] What to do if you have Problems For any increased pain, shortness of breath, bleeding, nausea or vomiting, chestpain, or any unexpected problems, contact your Primary Care Provider. Call [facility] ([phone]) or report to the closest Emergency Room. Call 911 if necessary. 12/19/22 0003 <Electronically signed by Irina Quintero MD> Cosigner Signature (if applicable): CC: Dr. Tino Oreilly MD ~ Signed [facility] Work Phone: [phone]) 746-869801-18-[address] Quintero [facility] December 19, 2022 12:03am Note Date/Time December 18, 2022 9 :58pm [facility] Medical Records Department [address] [place] [address] Emergency Department Summary 12/18/22 MR#: [id number] Acct: [id number] Name: MACARIO WALLACE Rep #:[id number] : 1975 47 From: Irina Quintero MD PCP: Dr. Tino Oreilly MD Status :ADM IN Location: [place] [address] HPI History of Present Illness Chief Complaint: [...] walk she agreed to transport. [facility] Medical History Abscess Abscess of vulva KERRY [...] lozenge 2 mg PO PRN PRN Smoking Xbibuhrcd08/09/23 [History Last Taken 12/08/22] prednisone 20 mg [...] decision making narrative: Patient is placed on search consultant. EKG, chest x-ray, lab work obtained. Urinalysis [...] 84.5 H Lymph % (Auto) 8.[address] [place] % (Auto) 5.2 Eos % (Auto) 0.3 [...] Clarity Clear Urine pH 6.0 Ur Specific Shelby 1.010 Urine Protein Negative Urine Glucose (UA) [...] 22:59 EST Reading Location ID and State: [facility] / [place] Tel , Service support , EKG Initial [...] 80 mg tablet 100 mg PO QHS rdpjcxbc-aicz-TE-calcium-mins 1 EACH tablet 1 ea PO DAILY [...] MD [Primary Care Provider] - Disposition Disposition: [facility] [place] [facility] What to do if you have Problems For any increased pain, shortness of breath, bleeding, nausea or vomiting, chestpain, or any unexpected problems, contact your Primary Care Provider. Call [facility] ([phone]) or report to the closest Emergency Room. Call 911 if necessary. 12/19/22 0003 <Electronically signed by Irina Quintero MD> Cosigner Signature (if applicable): CC: Dr. Tino Oreilly MD ~ Signed [facility] Work Phone: [phone]) 705-107001-13-2023 Miscellaneous Notes* Telephone Encounter - Robert Sanchez, [facility] - 12/13/2022 9:08 AM EST [...] know. Christi Barney RN documented in this encounterGreene Memorial Hospital01-12-2023 Miscellaneous Notes* Telephone Encounter - Irina Soriano [...] and advise. Irina Soriano documented in this encounterGreene Memorial Hospital01-05-2023 Miscellaneous Notes* Telephone Encounter - Robert Sanchez [...] to do so. Will send strips to [facility] at her request. Robert Sanchez PharmD, [facility] Primary Care Clinical Pharmacist documented in this encounterGreene Memorial Hospital12-28-2022 Miscellaneous Notes* Telephone Encounter - Annie Neville [...] Thank you. Annie Neville documented in this encounterGreene Memorial Hospital12-12-2022 Miscellaneous Notes* Telephone Encounter - Mariam Meredith [...] function returns to normal. documented in this encounterGreene Memorial Hospital12-09-2022 History of Present illness Narrative* Panfilo Oreilly [...] Non-STEMI (non-ST elevated myocardial infarction) ([facility]) 2/2 respiratory illness LOGAN (obstructive sleep apnea) using CPAP, Dr. Dumont Pulmonary embolism ([facility]) Seasonal allergies Unspecified essential hypertension [...] tablet by mouth daily with breakfast. Insulin Morris, Disposable, (BD ULTRA-FINE GABINO PEN NEEDLE) 32 [...] bedtime as needed. flash glucose scanning reader (ProStor SystemsSTYLE BAO 14 DAY READER) 1 Device four times daily. fenofibrate nanocrystallized (TRICOR) 145 mg tablet Take 1 tablet by mouth once daily. flash glucose sensor (ProStor SystemsSTYLE BAO 14 DAY SENSOR) kit 1 Each [...] Abs Lymph 1.00 - 4.00 k/uL 1.57 St. Francois% % 4.[address] Franc[place] <0.87 k/uL 0.38 Eosin% % 2.8 Abs [...] and schedule follow up visit with her appliance installer at [facility]. 3. Tremor - ICD9: 781.0, [...] which included preparing to see the patient, mmqp-ks-iyvx patient care, completing clinical documentation, obtaining and/or reviewing separately obtained history, performing a medically appropriate examination, counseling and educating the pat ient/family/caregiver, and ordering medications, tests, or procedures. Panfilo Oreilly MD documented in this encounterGreene Memorial Hospital12-07-2022 History of Present illness Narrative* Mehrdad Yoder [...] failure (HCC) 01/2022 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 Left, small lesion on CT Anxiety Cholecystitis s/p cholecystectomy Diabetes mellitus without mention of complication Diabetic neuropathy ([facility]) Seeing Neurology Diastolic heart failure ([facility]) GERD (gastroesophageal reflux disease) History of abnormal cervical Pap smear History of tobacco use Hyperlipidemia Insomnia Microalbuminuria Morbid obesity ([facility]) Narcotic abuse ([facility]) Non-STEMI (non-ST elevated myocardial infarction) ([facility]) 2/2 respiratory illness LOGAN (obstructive sleep apnea) using CPAP, Dr. Dumont Pulmonary embolism ([facility]) Seasonal allergies Unspecified essential hypertension [...] tablet by mouth daily with breakfast. Insulin Morris, Disposable, (BD ULTRA-FINE GABINO PEN NEEDLE) 32 [...] bedtime as needed. flash glucose scanning reader (ProStor SystemsSTYLE BAO 14 DAY READER) 1 Device four times daily. fenofibrate nanocrystallized (TRICOR) 145 mg tablet Take 1 tablet by mouth once daily. flash glucose sensor (ProStor SystemsSTYLE BAO 14 DAY SENSOR) kit 1 Each [...] Objective: Patient presents to clinic ambulating in [facility] [place] Constitutional: Pt is a well developed 47 [...] Care Saba Brenner LPN documented in this encounterGreene Memorial Hospital12-07-2022 Instructions* Patient Instructions* Minesh Mosley - 11/06/2022 [...] (or decreased sensation in your feet) a apparatus repair mechanic should always cut your toenails. Be Careful [...] Go to your health care provider or apparatus repair mechanic to treat these conditions. documented in this encounterGreene Memorial Hospital12-06-2022 Miscellaneous Notes* Telephone Encounter - Mehrdad Michael [...] Please call and advise. documented in this encounterGreene Memorial Hospital11-30-2022 History of Present illness Narrative* Tessa Suero, [facility] - 10/30/2022 1:00 PM EST [...] pharmacotherapy management appointment for diabetes. Admitted to [facility] form 09/22 to 09/24 for [...] (Gastroesophageal Reflux Disease) Morbid Obesity ([facility]) Microalbuminuria Insomnia History of Tobacco Use Hyperlipidemia Diabetic Neuropathy ([facility]) Type 2 Diabetes Mellitus With Diabetic Polyneuropathy, With Long-Term Current Use of Insulin ([facility]) Mgus (Monoclonal Gammopathy of Unknown Significance) Acute Pulmonary Embolism Without Acute Cor Pulmonale ([facility]) Adrenal Incidentaloma ([facility]) Obesity, Class III, BMI >= 40 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 Left, small lesion on CT Anxiety Cholecystitis s/p cholecystectomy Diabetes mellitus without mention of complication Diabetic neuropathy ([facility]) Seeing Neurology Diastolic heart failure ([facility]) GERD (gastroesophageal reflux disease) History of abnormal cervical Pap smear History of tobacco use Hyperlipidemia Insomnia Microalbuminuria Morbid obesity (HCC) Narcotic abuse (HCC) Non-STEMI (non-ST elevated myocardial infarction) ([facility]) 2/2 respiratory illness LOGAN (obstructive sleep apnea) using CPAP, Dr. Dumont Pulmonary embolism ([facility]) Seasonal allergies Unspecified essential hypertension [...] 50 points >150; TDD 150 units) Insulin Morris, Disposable, (BD ULTRA-FINE GABINO PEN NEEDLE) 32 [...] long-term current use of insulin ([facility]) - ICD9: 250.60, 357.2, V58.67, [...] of instructions. Tessa Suero RPh, PharmD PGY1 Machine Ironer The majority of the pharmacy visit (> 50%) was spent counseling and/or coordinating care for thepatient. interaction: telephonic time was 20 minutes. * Robert Sanchez RPh - 10/30/2022 1:00 PM EST The patient's case was discussed with the pharmacy billing adjudicator who interviewed the patient. Foley elements of history confirmed during office visit. The progress note reflects my input and comments. Robert Sanchez PharmD, [facility] Primary Care Clinical Pharmacist documented in this encounterGreene Memorial Hospital11-22-2022 Miscellaneous Notes* Telephone Encounter - Hallie Martinez APRN.CNP - 10/22/2022 10:35 AM EST This can be addressed at her upcoming appointment with Dr. Oreilly. Hallie Martinez APRN.NIKIA * Telephone Encounter - Marianne Grier RN - 10/22/2022 9:59 AM EST Clarisa Quintero with [facility] calls to let provider know that they are assisting patient to apply for the medicaid waiver program as she is needing more assistance in the home. Requesting provider submit a claim to [employer] for patient to have a scooter. Clarisa reports that it will probably be denied but she would like to get the process started. Not pended. Patient has follow up appointment 11/08/2022. Marianne Grier RN documented in this encounterGreene Memorial Hospital11-22-2022 Miscellaneous Notes* Telephone Encounter - Mariam Meredith [...] AM EST ----- Normal/stable labs. BNP from [facility] resulted at 11 which is normal. Recommend she continue higher doselasix, low sodium diet, wear CPAP nightly as discussed. F/u with cardiology. Call if leg swelling not improving with lasix or with weight increase as discussed in office. documented in this encounterGreene Memorial Hospital11-18-2022 Miscellaneous Notes* Telephone Encounter - Sandra Potts LPN - 10/18/2022 3:45 PM EST [facility] telephoned and made aware of NIKIA BARBOZA message. Read back. Will dispense for patient. Sandra Potts LPN * Telephone Encounter - Hallie Martinez APRN.CNP - 10/18/2022 2:56 PM EST Fine to dispense 81 and that can be for one month. Hallie Martinez APRN.NIKIA * Telephone Encounter - Tri Sorensen RN - 10/18/2022 2:46 PM EST [facility] calling regarding recent script for nicotine patches for patient. Pharmacy states the packs come in quantity of 81 only and to specify how many days provider would like patient to takethis medication. Please contact [facility]. Thank you. documented in this encounterGreene Memorial Hospital11-18-2022 History of Present illness Narrative* Elysia Faust, [...] 18, 2022 12:34 PM documented in this encounterGreene Memorial Hospital11-18-2022 Instructions* Patient Instructions* Panfilo Oreilly MD - 10/18/2022 11:53 AM EST Check daily weight and call with 2-3 lbs weight gain in 24 hours, or 5 lbs total. documented in this encounterGreene Memorial Hospital11-18-2022 History of Present illness Narrative* Panfilo Oreilly MD - 10/18/2022 10:29 AM EST Chief Complaint Patient presents with: Hospital Follow Up HPI Macario Wallace is a 47 year old female who presents here today for Hospital Discharge Follow up.. Patient was admitted to [facility] form 09/22 to 09/24 for [...] Patient does not have follow up with appliance installer and has not seen cardiology recently for [...] tablet by mouth daily with breakfast. Insulin Morris, Disposable, (BD ULTRA-FINE GABINO PEN NEEDLE) 32 [...] LOZENGE Panfilo Oreilly MD documented in this encounterGreene Memorial Hospital11-04-2022 Miscellaneous Notes* Telephone Encounter - Diana Mackenzie [...] you. Diana Mackenzie LPN documented in this encounterGreene Memorial Hospital11-01-2022 Miscellaneous Notes* Telephone Encounter - Keyonna Gross LPN - 10/01/2022 9:02 AM EDT Spoke with pt and information listed below given. Pt verbalizes understanding. Pt has picked up the Trulicity. Keyonna Gross LPN * Telephone Encounter - Robert Sanchez RPh - 09/09/2022 3:36 PM EDT dean of student services called around to different pharmacies, learned [facility] can get her Trulicity in stock. Order sent to [facility] today. Called patient to inform but unable [...] do. Keyonna Gross LPN documented in this encounterGreene Memorial Hospital10-10-2022 Miscellaneous Notes* Telephone Encounter - Sandra Potts LPN - 09/09/2022 3:57 PM EDT Looks like Robert Sanchez, [facility] sent a new script to [facility]. [facility] telephoned and stated they do have the medication in stock and script will be ready for supervisor opening and picking around 11am today. Patient telephoned and made aware, agreeable to [facility]. Sandra Potts LPN * Telephone Encounter - Panfilo Oreilly MD - 09/09/2022 2:08 PM EDT Can this be transferred to another pharmacy? * Telephone Encounter - Jessica Croft LPN - 09/09/2022 2:04 PM EDT [facility] is on backorder, Patient is completely out of medication x1 week, asking if there is an alternative for Patient. Jessica Croft LPN documented in this encounterGreene Memorial Hospital09-27-2022 Miscellaneous Notes* Telephone Encounter - Lula Cameron LPN - 08/27/2022 2:01 PM EDT Pt calling for refill. HUMBLE: 07/09/22 NOV: 10/18/22 Last Refill: 02/28/22 #90 0 refills Lula Cameron LPN documented in this encounterGreene Memorial Hospital09-01-2022 History of Present illness Narrative* Robert Sanchez [facility] - 08/01/2022 1:00 PM EDT [...] eating a lot of fruit. Has the 6Scan Bao, said the sensor has fallen off [...] not present Adherence: denies missed doses Pharmacy: [facility] Rx coverage: Medicaid Affordability: no issues Diabetes supplies: Custom Coup CGM Organization System: pill box ACTIVE PROBLEM LIST Calculus of Gallbladder Without Mention of Cholecystitis Or Obstruction Anxiety Logan (Obstructive Sleep Apnea) Essential Hypertension Gerd (Gastroesophageal Reflux Disease) Morbid Obesity (Hcc) Microalbuminuria Insomnia History of Tobacco Use Hyperlipidemia Diabetic Neuropathy (Hcc) Type 2 Diabetes Mellitus With Diabetic Polyneuropathy, With Long-Term Current Use of Insulin ([facility]) Mgus (Monoclonal Gammopathy of Unknown Significance) Acute Pulmonary Embolism Without Acute Cor Pulmonale ([facility]) Adrenal Incidentaloma ([facility]) Obesity, Class III, BMI >= 40 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 Left, small lesion on CT Anxiety Cholecystitis s/p cholecystectomy Diabetes mellitus without mention of complication Diabetic neuropathy ([facility]) Seeing Neurology Diastolic heart failure ([facility]) GERD (gastroesophageal reflux disease) History of abnormal cervical Pap smear History of tobacco use Hyperlipidemia Insomnia Microalbuminuria Morbid obesity (HCC) Narcotic abuse (HCC) Non-STEMI (non-ST elevated myocardial infarction) ([facility]) 2/2 respiratory illness LOGAN (obstructive sleep apnea) using CPAP, Dr. Dumont Pulmonary embolism ([facility]) Seasonal allergies Unspecified essential hypertension [...] 50 points >150; TDD 150 units) Insulin Morris, Disposable, (BD ULTRA-FINE GABINO PEN NEEDLE) 32 [...] carbs/meal Will send resources to review via Arrowsight Advised to only eat 1/2 bagel or switch to bagel thins Applauded on improved A1c Advised to scan CGM more frequently, had niece help her get set up with [facility] [employer] ACEi/ARB for renal protection: yes, Scr and [...] time was 55 minutes. documented in this encounterGreene Memorial Hospital09-01-2022 Instructions* Patient Instructions* Robert Sanchez RPh - [...] help you get set up with the Meliuz account. If you did not get the email, please let me know. Start to review nutrition labels. Try to limit your carbohydrates to <30-45g per MEAL. Review the materials I sent to you via Arrowsight. Try to incorporate more protein and fiber into your diet. Tryswitching to 1/2 bagel or to Bagel Thins. documented in this encounterGreene Memorial Hospital08-25-2022 History of Present illness Narrative* Berenice Bauman [...] previous colonoscopy. She was recently evaluated at [facility] ED on 04/21/2022 for chest pain. She [...] CPAP, Dr. Dumont Pulmonary embolism ([facility]) Seasonal allergies Unspecified essential hypertension PAST SURGICAL HISTORY Procedure Laterality Date ANALGESIA,EPIDURAL,LABOR & 1994 INCISION & DRAINAGE ABSCESS COMPLICATED/MULTIPLE 04/07/14 LAPS SURG CHOLECYSTECTOMY W/CHOLANGIOGRAPHY 11/04/2007 PAST SURGICAL HISTORY OF Left 2006 arthroscopic knee surgery PAST SURGICAL HISTORY OF 1995 LEEP Current Outpatient Medications Medication Sig Insulin Morris, Disposable, (BD ULTRA-FINE GABINO PEN NEEDLE) 32 [...] bedtime as needed. flash glucose scanning reader (ProStor SystemsSTYLE BAO 14 DAY READER) 1 Device four [...] have offered referral to a larger hospital ([facility]) for screening colonoscopy Patient asks for alternatives for screening for colon cancer, and I have offered stool guaiac testing but told patient that this has to be done on a yearly basis. Patient states that she would preferstool guaiac testing over going to [facility] for colonoscopy. I have ordered the stool [...] Straightforward Berenice Bauman MD documented in this encounterGreene Memorial Hospital08-24-2022 Miscellaneous Notes* Telephone Encounter - Belem Romero [...] notify patient. Madelyn Estes documented in this encounterGreene Memorial Hospital08-23-2022 Nurse Note* Nadia Cagle - 07/23/2022 10:29 [...] Colonoscopy: Unknown Nadia Cagle documented in this encounterGreene Memorial Hospital08-11-2022 Miscellaneous Notes* Telephone Encounter - Robert Sanchez RPh - 07/11/2022 9:21 AM EDT Called patient to schedule f/up appt for DM mngt, CGM interpretation, and med review. Scheduled for08/01. Billy MarionD, BCPS Primary Care Clinical Pharmacist documented in this encounterGreene Memorial Hospital08-09-2022 Miscellaneous Notes* Telephone Encounter - Sandra Potts LPN - 07/09/2022 1:20 PM EDT Patient aware. Sandra Potts LPN * Telephone Encounter - Panfilo Oreilly MD - 07/09/2022 1:17 PM EDT Rx sent as requested. * Telephone Encounter - Lula Sarmiento LPN - 07/09/2022 11:37 AM EDT Patient is changing her primary pharmacy to [facility] and is requesting all Rx's for medications and diabetic supplies forwarded to them. documented in this encounterGreene Memorial Hospital08-09-2022 History of Present illness Narrative* Elysia Faust [...] 09, 2022 11:48 AM documented in this encounterGreene Memorial Hospital08-05-2022 Miscellaneous Notes* Telephone Encounter - Diana Gurdeep [...] you. Diana Mackenzie LPN documented in this encounterGreene Memorial Hospital08-03-2022 Miscellaneous Notes* Telephone Encounter - Belem Romero [...] schedule. Belem Romero Ma documented in this encounterGreene Memorial Hospital07-29-2022 Miscellaneous Notes* Telephone Encounter - Belem Romero [...] patient. Kimber Moore Pss documented in this encounterGreene Memorial Hospital07-29-2022 Miscellaneous Notes* Telephone Encounter - Lula Sarmiento LPN - 06/28/2022 11:41 AM EDT Phoned patient to schedule OV follow up as she is past due. Patient had an appointment on 06/18/22 but was a no show. documented in this encounterGreene Memorial Hospital07-28-2022 Miscellaneous Notes* Telephone Encounter - Robert Sanchez RP - 2022 11:45 AM EDT Patient no-showed to PharmD visit today. Unable to reach via phone and VM not set up yet. Will try reaching out at a later date to reschedule. Robert Sanchez PharmD [facility] Primary Care Clinical Pharmacist Carmel PHILLIPS [facility] documented in this encounterGreene Memorial Hospital07-14-2022 Miscellaneous Notes* Telephone Encounter - Robert Sanchez RP - 06/13/2022 11:17 AM EDT Patient is a no show for PharmD visit today. Called patient, she is still out of town, had a car issue and just got fixed today. She apologized for missing and agreed to reschedule for next week on 06/20. Robert Sanchez PharmD [facility] Primary Care Clinical Pharmacist Carmel PHILLIPS [facility] documented in this encounterGreene Memorial Hospital07-06-2022 Miscellaneous Notes* Telephone Encounter - Hallie Martinez APRN.NIKIA - 06/05/2022 12:22 PM EDT PDMP website checked and validated. All prescriptions have been APPROPRIATELY filled. No suspiciousactivity was identified. 06/05/2022 by Hallie Martinez APRN.OIL TANK CAR CLEANER * Telephone Encounter - Lashon Overton LPN [...] you. Lashon Overton LPN documented in this encounterGreene Memorial Hospital06-02-2022 History of Present illness Narrative* Robert Sanchez [facility] - 05/02/2022 11:00 AM EDT Primary Care [...] consumed sugar (cup of OJ and chewy Burchinal pycochers), levels eventually went up to 90 mg/dL. [...] to [employer]. Leaving for vacation in [place] on Friday. Current DM Medications: Metformin ER [...] present Adherence: denies missed doses Pharmacy: [facility] in [place] Rx coverage: Medicaid Affordability: no issues Diabetes supplies: Custom Coup CGM Organization System: pill box ACTIVE PROBLEM LIST Calculus of Gallbladder Without Mention of Cholecystitis Or Obstruction Anxiety Logan (Obstructive Sleep Apnea) Essential Hypertension Gerd (Gastroesophageal Reflux Disease) Morbid Obesity (Hcc) Microalbuminuria Insomnia History of Tobacco Use Hyperlipidemia Diabetic Neuropathy (Hcc) Type 2 Diabetes Mellitus With Diabetic Polyneuropathy, With Long-Term Current Use of Insulin ([facility]) Mgus (Monoclonal Gammopathy of Unknown Significance) Acute Pulmonary Embolism Without Acute Cor Pulmonale (Hcc) Adrenal Incidentaloma ([facility]) Obesity, Class III, BMI >= 40 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 Left, small lesion on CT Anxiety Cholecystitis s/p cholecystectomy Diabetes mellitus without mention of complication Diabetic neuropathy ([facility]) Seeing Neurology GERD (gastroesophageal reflux disease) History of abnormal cervical Pap smear History of tobacco use Hyperlipidemia Insomnia Microalbuminuria Morbid obesity (HCC) Narcotic abuse (HCC) Non-STEMI (non-ST elevated myocardial infarction) ([facility]) 2/2 respiratory illness LOGAN (obstructive sleep apnea) using CPAP Pulmonary embolism ([facility]) Seasonal allergies Unspecified essential hypertension [...] mouth once daily. flash glucose scanning reader (ProStor SystemsSTYLE BAO 14 DAY READER) 1 Device four [...] reader, alsoexplained how to set up a [facility] account; since lows are not frequent and [...] diet PharmD sent invite to link via Meliuz. Patient to get account set up prior to next PharmD visit and have CGM downloaded the day prior HbA1c: due 06/18 Patient is scheduled to see OIL TANK CAR CLEANER on 06/18. Patient to have PharmD f/u on 06/06. Patient verbalized understanding of instructions. Robert Sanchez PharmD, [facility] Primary Care Clinical Pharmacist oRnal Paz [facility] The majority of the pharmacy visit (> 50%) was spent counseling and/or coordinating care for thepatient. interaction: telephonic time was 30 minutes. documented in this encounterGreene Memorial Hospital06-01-2022 Miscellaneous Notes* Telephone Encounter - Hallie Martinez APRN.NIKIA - 05/01/2022 9:24 AM EDT PDMP website checked and validated. All prescriptions have been APPROPRIATELY filled. No suspiciousactivity was identified. 05/01/2022 by Hallie Martinez APRN.OIL TANK CAR CLEANER * Telephone Encounter - Georgina Samayoa RN [...] you. Georgina Samayoa RN documented in this encounterGreene Memorial Hospital05-11-2022 Miscellaneous Notes* Telephone Encounter - Panfilo Oreilly [...] MD * Telephone Encounter - Vanessa Ignacio [facility] - 04/09/2022 2:02 PM EDT Patient is calling today to advise the pill form of gabapentin seems to be working better than the capsules. She was only given the 30 trial of the pill form and would like to go forward with that type of pill and have it sent to her pharmacy , [facility]. Patient has been identified by name and date of : Yes Pending Prescriptions Disp Refills GABAPENTIN 800 MG TABLET 90 tablet 0 Sig: Take 1 tablet by mouth three times daily for 30 days. RIKKI: No RX INSTRUCTIONS: Patient aware RX will be sent to pharmacy. No need to notify patient. Vanessa Ignacio [facility] Electronically signed by Vanessa Ignacio [facility] at 04/09/2022 2:08 PM EDT documented in this encounterGreene Memorial Hospital05-04-2022 Miscellaneous Notes* Telephone Encounter - Robert Sanchez [...] office with any issues. Robert Sanchez PharmD, [facility] Primary Care Clinical Pharmacist Ronal Paz [facility] documented in this encounterGreene Memorial Hospital04-29-2022 Miscellaneous Notes* Telephone Encounter - Robert Sanchez [...] and verbalized understanding. Leena Salinas PharmD PGY1 Machine Ironer * Telephone Encounter - Leena Salinas RPh [...] for insurance coverage. Leena Salinas PharmD PGY1 Machine Ironer * Telephone Encounter - Georgina Samayoa RN - 03/29/2022 11:38 AM EDT Patient calls and states that provider had increased patient's insurance yesterday at appointment. Patient states that when she went to supervisor opening and picking medication she was told that dosage is too high by pharmacist and insurance will not cover medication. Patient states that she may need a prior authorization. Please review and advise, Georgina Samayoa RN documented in this encounterGreene Memorial Hospital04-28-2022 Miscellaneous Notes* Telephone Encounter - Gisele Dumas [...] if [facility] for her. Please call and advise. documented in this encounterGreene Memorial Hospital04-28-2022 History of Present illness Narrative* Robert Sanchez RPh - 03/28/2022 10:30 AM EDT The patient's case was discussed with the pharmacy billing adjudicator who interviewed the patient. Foley elements of history confirmed during office visit. The progress note reflects my input and comments. Robert Sanchez, Michelle, BCPS Primary Care Clinical Pharmacist Carmel [facility] * Leena Salinas, [facility] - 03/28/2022 10:30 AM EDT Primary Care [...] mid-200s mg/dL. Patient was able to obtain SKY Network Technologyyle Bao CGM and was using. Patient recently placed new sensor on arm, but it was accidentally knocked off a couple days later. Not currently using CGM or checking BG. Patient states she never received invite for Meliuz to connect with PharmD to view CGM [...] morning, getting from pharmacy latertoday Pharmacy: [facility] in [place] Rx coverage: Medicaid Affordability: no issues Diabetes supplies: Custom Coup CGM Organization System: pill box ACTIVE PROBLEM LIST Calculus of Gallbladder Without Mention of Cholecystitis Or Obstruction Anxiety Logan (Obstructive Sleep Apnea) Essential Hypertension Gerd (Gastroesophageal Reflux Disease) Morbid Obesity (Hcc) Microalbuminuria Insomnia History of Tobacco Use Hyperlipidemia Diabetic Neuropathy (Hcc) Type 2 Diabetes Mellitus With Diabetic Polyneuropathy, With Long-Term Current Use of Insulin ([facility]) Mgus (Monoclonal Gammopathy of Unknown Significance) Acute Pulmonary Embolism Without Acute Cor Pulmonale ([facility]) Adrenal Incidentaloma ([facility]) Obesity, Class III, BMI >= 40 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 Left, small lesion on CT Anxiety Cholecystitis s/p cholecystectomy Diabetes mellitus without mention of complication Diabetic neuropathy (HCC) Seeing Neurology GERD (gastroesophageal reflux disease) History of abnormal cervical Pap smear History of tobacco use Hyperlipidemia Insomnia Microalbuminuria Morbid obesity (HCC) Narcotic abuse (HCC) Non-STEMI (non-ST elevated myocardial infarction) ([facility]) 2/2 respiratory illness LOGAN (obstructive sleep apnea) using CPAP Pulmonary embolism ([facility]) Seasonal allergies Unspecified essential hypertension [...] Tresiba to lower BG; patient can connect Meliuz profile to PharmD for PharmD to review [...] 2000 mg daily Advised patient to call [employer] (telephone number on back of reader) to inquire about getting a replacement sensor PharmD will re-send invite to patient's email to connect on Meliuz for CGM report sharing Patient to notify PharmD before next f/up visit if having any issues connecting on Meliuz Recommended patient to reach out to PCP [...] understanding of instructions. Leena Salinas PharmD PGY1 Machine Ironer The majority of the pharmacy visit (> 50%) was spent counseling and/or coordinating care for thepatient. interaction: telephonic time was 26 minutes. documented in this encounterGreene Memorial Hospital04-20-2022 Miscellaneous Notes* Telephone Encounter - Keyonna Gross LPN - 03/20/2022 11:04 AM EDT Spoke with pt and information listed below given. Pt verbalizes understanding. Transferred to spares scheduler. Keyonna Gross LPN * Telephone Encounter - [...] months. Hallie Martinez APRN.CNP documented in this encounterGreene Memorial Hospital04-19-2022 History of Present illness Narrative* Hallie Martinez [...] water in it. Following with pulmonology in [place]. 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 Left, small lesion on CT Anxiety Cholecystitis s/p cholecystectomy Diabetes mellitus without mention of complication Diabetic neuropathy ([facility]) Seeing Neurology GERD (gastroesophageal reflux disease) History of abnormal cervical Pap smear History of tobacco use Hyperlipidemia Insomnia Microalbuminuria Morbid obesity ([facility]) Narcotic abuse ([facility]) Non-STEMI (non-ST elevated myocardial infarction) ([facility]) 2/2 respiratory illness LOGAN (obstructive sleep apnea) using CPAP Pulmonary embolism ([facility]) Seasonal allergies Unspecified essential hypertension [...] mouth once daily. flash glucose scanning reader (Docurated BAO 14 DAY READER) 1 Device four [...] arise. - Discussed diabetic education issues of watermelon harvesting supervisor diabetic complications, diet and importance of exercise [...] carbohydrate, healthy oil intake diet. Hallie Martinez APRN.OIL TANK CAR CLEANER Prescription instructions reviewed with patient as applicable. Patient advised if symptoms do not improve or if symptoms worsen sooner, to contact their primary care physician. Potential red flag symptoms discussed with the patient. Reviewed appropriate action plan to take if red flag symptoms occur. Patient agreeable to treatment plan. documented in this encounterGreene Memorial Hospital04-05-2022 Miscellaneous Notes* Telephone Encounter - Sandra Potts LPN - 03/05/2022 1:23 PM EDT Patient telephoned and made aware. Sandra Potts LPN * Telephone Encounter - Panfilo Oreilly MD - 03/05/2022 1:06 PM EDT rx for Humalog sent. Continue same dosage as Novolog. * Telephone Encounter - Diana Mackenzie LPN - 03/05/2022 10:28 AM EDT Meghan from [facility] pharmacy calling patient insurance requesting Novolog insulin be changedto Humalog asking for new rx to be sent to pharmacy. Please advise documented in this encounterGreene Memorial Hospital03-02-2022 Miscellaneous Notes* Telephone Encounter - Sandra Potts LPN - 01/30/2022 11:27 AM EST Pt called and made aware. Prescription placed in medical records for pickup. Sandra Potts LPN * Telephone Encounter - Marianne Grier RN - 01/30/2022 8:38 AM EST Patient calls to check on status of request for handicapped placard. Patient asking for prescription to be taken to Medical Records for supervisor opening and picking. Please call patient when available at [phone]. Marianne Grier RN * Telephone Encounter - [...] like the prescription left at the front end developer javascript html css. No chief complaint on file. Patient has been identified by name anNoES:[id number]} [phone] (home) [phone] (cell) Please return call when prescription ready for supervisor opening and picking. Was an appointment scheduled: No: Closing statement: Results or non-symptom based questions: Thank you for calling [facility], your call will be returned within the next business day. Idalia Milton documented in this encounterGreene Memorial Hospital02-28-2022 Miscellaneous Notes* Telephone Encounter - Sandra Potts LPN - 01/28/2022 2:33 PM EST Pt telephoned and message below given. Voiced understanding. Will call back with update in 1 week. Sadnra Potts LPN * Telephone Encounter - Sandra [...] needed. Hallie Martinez APRN.CNP [facility] Miscellaneous Notes* Telephone Encounter - Hallie Martinez [...] - 01/25/2022 11:24 AM EST Pt telephoned. [facility] didn't receive orders yet. Pt requesting compression stockings be faxed to [facility]. All orders refaxed and faxed at this time. Sandra Potts LPN * Telephone Encounter - Idalia Milton - 01/25/2022 10:49 AM EST Patient calling in today regarding the walker, compression stockings and shower chair. Patient is asking about the status of the items. Please return call to patient with update documented in this encounterGreene [facility]02-25-2022 Miscellaneous Notes* Telephone Encounter - Nita Abbott [...] yeast infection. Please send scripts to [facility] documented in this encounterGre[facility]02-23-[facility]22 Miscellaneous Notes* Telephone Encounter - Hallie Martinez APRN.CNP - 01/23/2022 4:35 PM EST Please fax orders for compression hose, wheeled walker and shower chair to [facility]. Orders in my outbox documented in this encounterGreene [facility]02-14-2022 Miscellaneous Notes* Telephone Encounter - Silvino Martinez [...] patient. Kristine Marmolejo Pss documented in this encounterGreene [facility]09-01-2021 History of Present illness Narrative* Elysia Faust [...] 01, 2021 3:30 PM documented in this encounterGreene [facility]07-20-2021 Miscellaneous Notes* Telephone Encounter - Esthela Weeks LPN - 06/19/2021 3:13 PM EDT Prior Authorization has been completed online at [employer] for Angelo Gore, will await response. FOLEY- [id number] Please keep encounter open until final decision has been received and documented from insurance company. Adalgisa Weeks LPN documented in this encounterGreene [facility]12-07-2007 History of Past illness Narrative* Problem Noted Date Resolved Date Acute cholecystitis 11/06/2007 11/20/2021 documented as of this encounter (statuses as of 02/26/2022) [address]2007 History of Past illness Narrative* Problem Noted Date Resolved Date Acute cholecystitis 11/06/2007 11/20/2021 documented as of this encounter (statuses as of 03/19/2022) [facility] Narrative* Problem Noted Date Resolved Date Acute cholecystitis 11/06/2007 11/20/2021 documented as of this encounter (statuses as of 03/20/2022) [facility] Narrative* Problem Noted Date Resolved Date Acute cholecystitis 11/06/2007 11/20/2021 documented as of this encounter (statuses as of 03/20/2022) [facility] Narrative* Problem Noted Date Resolved Date Acute cholecystitis 11/06/2007 11/20/2021 documented as of this encounter (statuses as of 03/20/2022) [facility] Narrative* Problem Noted Date Resolved Date Acute cholecystitis 11/06/2007 11/20/2021 documented as of this encounter (statuses as of 03/20/2022) [facility] Narrative* Problem Noted Date Resolved Date Acute cholecystitis 11/06/2007 11/20/2021 documented as of this encounter (statuses as of 03/20/2022) [facility] Narrative* Problem Noted Date Resolved Date Acute cholecystitis 11/06/2007 11/20/2021 documented as of this encounter (statuses as of 03/28/2022) [address]2007 History of Past illness Narrative* Problem Noted Date Resolved Date Acute cholecystitis 11/06/2007 11/20/2021 documented as of this encounter (statuses as of 03/29/2022) [address]-2007 History of Past illness Narrative* Problem Noted Date Resolved Date Acute cholecystitis 11/06/2007 11/20/2021 documented as of this encounter (statuses as of 04/02/2022) [address]2007 History of Past illness Narrative* Problem Noted Date Resolved Date Acute cholecystitis 11/06/2007 11/20/2021 documented as of this encounter (statuses as of 04/03/2022) [address]2007 History of Past illness Narrative* Problem Noted Date Resolved Date Acute cholecystitis 11/06/2007 11/20/2021 documented as of this encounter (statuses as of 04/10/2022) [address]2007 History of Past illness Narrative* Problem Noted Date Resolved Date Acute cholecystitis 11/06/2007 11/20/2021 documented as of this encounter (statuses as of 05/01/2022) [address]2007 History of Past illness Narrative* Problem Noted Date Resolved Date Acute cholecystitis 11/06/2007 11/20/2021 documented as of this encounter (statuses as of 05/02/2022) [address]2007 History of Past illness Narrative* Problem Noted Date Resolved Date Acute cholecystitis 11/06/2007 11/20/2021 documented as of this encounter (statuses as of 06/03/2022) [address]-2007 History of Past illness Narrative* Problem Noted Date Resolved Date Acute cholecystitis 11/06/2007 11/20/2021 documented as of this encounter (statuses as of 06/05/2022) [address]-2007 History of Past illness Narrative* Problem Noted Date Resolved Date Acute cholecystitis 11/06/2007 11/20/2021 documented as of this encounter (statuses as of 06/13/2022) [address]2007 History of Past illness Narrative* Problem Noted Date Resolved Date Acute cholecystitis 11/06/2007 11/20/2021 documented as of this encounter (statuses as of 2022) [address]-2007 History of Past illness Narrative* Problem Noted Date Resolved Date Acute cholecystitis 11/06/2007 11/20/2021 documented as of this encounter (statuses as of 06/28/2022) [address]-2007 History of Past illness Narrative* Problem Noted Date Resolved Date Acute cholecystitis 11/06/2007 11/20/2021 documented as of this encounter (statuses as of 06/28/2022) [address]2007 History of Past illness Narrative* Problem Noted Date Resolved Date Acute cholecystitis 11/06/2007 11/20/2021 documented as of this encounter (statuses as of 07/03/2022) [address]2007 History of Past illness Narrative* Problem Noted Date Resolved Date Acute cholecystitis 11/06/2007 11/20/2021 documented as of this encounter (statuses as of 07/11/2022) [address]2007 History of Past illness Narrative* Problem Noted Date Resolved Date Acute cholecystitis 11/06/2007 11/20/2021 documented as of this encounter (statuses as of 07/19/2022) [facility] Narrative* Problem Noted Date Resolved Date Acute cholecystitis 11/06/2007 11/20/2021 documented as of this encounter (statuses as of 07/24/2022) [facility] Narrative* Problem Noted Date Resolved Date Acute cholecystitis 11/06/2007 11/20/2021 documented as of this encounter (statuses as of 07/27/2022) [facility] Narrative* Problem Noted Date Resolved Date Acute cholecystitis 11/06/2007 11/20/2021 documented as of this encounter (statuses as of 08/01/2022) [facility] Narrative* Problem Noted Date Resolved Date Acute cholecystitis 11/06/2007 11/20/2021 documented as of this encounter (statuses as of 08/01/2022) [address]2007 History of Past illness Narrative* Problem Noted Date Resolved Date Acute cholecystitis 11/06/2007 11/20/2021 documented as of this encounter (statuses as of 08/16/2022) [address]2007 History of Past illness Narrative* Problem Noted Date Resolved Date Acute cholecystitis 11/06/2007 11/20/2021 documented as of this encounter (statuses as of 08/27/2022) [address]2007 History of Past illness Narrative* Problem Noted Date Resolved Date Acute cholecystitis 11/06/2007 11/20/2021 documented as of this encounter (statuses as of 09/10/2022) [address]2007 History of Past illness Narrative* Problem Noted Date Resolved Date Acute cholecystitis 11/06/2007 11/20/2021 documented as of this encounter (statuses as of 10/01/2022) [address]2007 History of Past illness Narrative* Problem Noted Date Resolved Date Acute cholecystitis 11/06/2007 11/20/2021 documented as of this encounter (statuses as of 10/04/2022) [facility]* Problem Noted Date Resolved Date Acute cholecystitis 11/06/2007 11/20/2021 documented as of this encounter (statuses as of 10/18/2022) [facility] Narrative* Problem Noted Date Resolved Date Acute cholecystitis 11/06/2007 11/20/2021 documented as of this encounter (statuses as of 10/22/2022) [facility] Narrative* Problem Noted Date Resolved Date Acute cholecystitis 11/06/2007 11/20/2021 documented as of this encounter (statuses as of 10/22/2022) [facility]* Problem Noted Date Resolved Date Acute cholecystitis 11/06/2007 11/20/2021 documented as of this encounter (statuses as of 10/22/2022) [facility] Narrative* Problem Noted Date Resolved Date Acute cholecystitis 11/06/2007 11/20/2021 documented as of this encounter (statuses as of 10/30/2022) [facility] Narrative* Problem Noted Date Resolved Date Acute cholecystitis 11/06/2007 11/20/2021 documented as of this encounter (statuses as of 11/05/2022) [facility]arrative* Problem Noted Date Resolved Date Acute cholecystitis 11/06/2007 11/20/2021 documented as of this encounter (statuses as of 11/06/2022) [facility] Narrative* Problem Noted Date Resolved Date Acute cholecystitis 11/06/2007 11/20/2021 documented as of this encounter (statuses as of 11/11/2022) [address]2007 History of Past illness Narrative* Problem Noted Date Resolved Date Acute cholecystitis 11/06/2007 11/20/2021 documented as of this encounter (statuses as of 11/11/2022) [address]2007 History of Past illness Narrative* Problem Noted Date Resolved Date Acute cholecystitis 11/06/2007 11/20/2021 documented as of this encounter (statuses as of 12/04/2022) [address]2007 History of Past illness Narrative* Problem Noted Date Resolved Date Acute cholecystitis 11/06/2007 11/20/2021 documented as of this encounter (statuses as of 12/06/2022) [address]2007 History of Past illness Narrative* Problem Noted Date Resolved Date Acute cholecystitis 11/06/2007 11/20/2021 documented as of this encounter (statuses as of 12/12/2022) [address]2007 History of Past illness Narrative* Problem Noted Date Resolved Date Acute cholecystitis 11/06/2007 11/20/2021 documented as of this encounter (statuses as of 12/13/2022) [facility]* Problem Noted Date Resolved Date Acute cholecystitis 11/06/2007 11/20/2021 documented as of this encounter (statuses as of 12/25/2022) [facility] Narrative* Problem Noted Date Resolved Date Acute cholecystitis 11/06/2007 11/20/2021 documented as of this encounter (statuses as of 12/25/2022) [address]2007 History of Past illness Narrative* Problem Noted Date Resolved Date Acute cholecystitis 11/06/2007 11/20/2021 documented as of this encounter (statuses as of 12/30/2022) [address]2007 History of Past illness Narrative* Problem Noted Date Resolved Date Acute cholecystitis 11/06/2007 11/20/2021 documented as of this encounter (statuses as of 12/31/2022) [address]2007 History of Past illness Narrative* Problem Noted Date Resolved Date Acute cholecystitis 11/06/2007 11/20/2021 documented as of this encounter (statuses as of 01/02/2023) [address]2007 History of Past illness Narrative* Problem Noted Date Resolved Date Acute cholecystitis 11/06/2007 11/20/2021 documented as of this encounter (statuses as of 01/02/2023) [address]2007 History of Past illness Narrative* Problem Noted Date Resolved Date Acute cholecystitis 11/06/2007 11/20/2021 documented as of this encounter (statuses as of 01/03/2023) [address]2007 History of Past illness Narrative* Problem Noted Date Resolved Date Acute cholecystitis 11/06/2007 11/20/2021 documented as of this encounter (statuses as of 01/07/2023) [address]2007 History of Past illness Narrative* Problem Noted Date Resolved Date Acute cholecystitis 11/06/2007 11/20/2021 documented as of this encounter (statuses as of 01/07/2023) [address]2007 History of Past illness Narrative* Problem Noted Date Resolved Date Acute cholecystitis 11/06/2007 11/20/2021 documented as of this encounter (statuses as of 01/13/2023) [facility] Narrative* Problem Noted Date Resolved Date Acute cholecystitis 11/06/2007 11/20/2021 documented as of this encounter (statuses as of 01/14/2023) [facility] Narrative* Problem Noted Date Resolved Date Acute cholecystitis 11/06/2007 11/20/2021 documented as of this encounter (statuses as of 01/15/2023) [facility] HospitalConsult [facility] Author Tamara Siu [facility] July 15, 2023 1:43pm Note Date/Time July 15, 2023 1: 43pm [facility] Medical Records Department [address] [place] [address] Counseling Note - Pharmacy 07/15/23 1342 MR#: [id number] Acct: [id number] Name: MACARIO WALLACE Rep #:[id number] : 1975 48 From: Tamara Siu PCP: Dr. Tino Oreilly MD Status :ADM JACQUELYN [facility] Pharmacy Service has performed discharge medication reconciliation [...] of their dischargemedications. Patient counseled by pharmacy cashierMaya. Medications at Discharge Home Medications multivit-iron 18 [...] Signature (if applicable): Date CC: ~ Signed [facility] Work Phone: Consult note Author Chandan Jacob [facility] Note Date/Time August 19, 2025 4:02pm [facility] Medical Records Department [address] [place] [address] Counseling Note - Pharmacy 08/19/25 1517 MR#: [id number] Acct: [id number] Name: MACARIO WALLACE Rep #:[id number] : 1975 50 From: Chandan Jacob PCP: Dr. Delmy Solorzano MD Status:ADM IN Location: [place] [address] Pharmacy [facility] Counseling Pharmacy Service has performed discharge medication [...] Signature (if applicable): Date CC: ~ Signed [facility] Work Phone: Discharge summary Author Dr. Wilkes [facility] December 20, 2022 4:11pm Note Date/Time December 20, 2022 3 :12pm [facility] Medical Records Department [address] [place] [address] Discharge Summary 12/20/22 1510 MR#: [id number] Acct: [id number] Name: MACARIO WALLACE Rep #:[id number] : 1975 47 From: Liam regalado MD PCP: Dr. Tino Oreilly MD Status :ADM IN Location: [place] [id number]- 1 Providers Date of Admission: 12/18/22 Primary Care Physician: Dr. Tino Oreilly MD Consultations 12/20/22 07:38 Consult: Onc/Wound/home theater experience expert Routine Comment: Reason for Consult:: wounds Comments:: [...] diabetes mellitus without complications Qualifiers: Diabetes mellitus watermelon harvesting supervisor insulin use: with watermelon harvesting supervisor use Diabetes mellitus complication status: with hyperosmolarity Diabetes mellitus complication detail: with coma Qualified Code(s): E11.01 - Type 2 diabetes mellitus with hyperosmolarity with coma; Z79.4 - salvage determiner (current) use of insulin (5) Essential hypertension: [...] lozenge 2 mg PO PRN PRN Smoking Hpvuovict33/09/23 prednisone 20 mg tablet 60 mg PO [...] 4 to 5 L nasal cannula oxygen mhxtai-dpi-bnxjf and CPAP at night tosleep.? Reportedly patient [...] initiation of antibiotics if necessary, [facility] [...] 81.4 H, Lymph % (Auto) 10.5 L, [place] % (Auto) 6.3, Eos % (Auto) 0.7, [...] 80 mg tablet 100 mg PO QHS jrchdbua-eeyl-XV-calcium-mins 1 EACH tablet 1 ea PO DAILY [...] Health Service Charges/Coding Visit Charges Inpatient E&M: 18177 Disch Hosp >30min 12/20/22 1611 <Electronically signed by Liam Wilkes MD> Cosigner Signature (if applicable): CC: Dr. Tino Oreilly MD; Dr. Liam Wilkes MD~ Signed [facility] Work Phone: Discharge summary Author Belem Aponte [facility] July 15, 2023 12:23pm Note Date/Time July 15, 2023 12 :03pm [facility] Medical Records Department [address] [place] [address] Discharge Summary 07/15/23 1203 MR#: [id number] Acct: [id number] Name: MACARIO WALLACE Rep #:[id number] : 1975 48 From: Belem Aponte DO PCP: Dr. Tino Oreilly MD Status :ADM JACQUELYN Location: [place] [address]- Providers Date of Admission: 07/14/23 Date of [...] baseline. She indicated she was recently in [place] visiting her mother and had to be [...] % (Auto) 67.8, Lymph % (Auto) 21.4, [place] % (Auto) 4.5, Eos % (Auto) 1.8, [...] Neut % (Auto) 67.0, Lymph % (Auto)21.4, [place] % (Auto) 4.5, Eos % (Auto) 2.1, [...] 80 mg tablet 80 mg PO QHS ktzqiuel-yjqp-OA-calcium-mins 1 EACH tablet 1 ea PO DAILY [...] - Within 2 Weeks Nelly Hunter NP, QUALITY OFFICER-C [Med Staff - Adv Practice Prof] - Within 1 Month (callfor appt) Disposition Disposition (needs filled in before D/C Order can be placed): Home, Self Care Charges/Coding Visit Charges Inpatient E&M: 90364 Disch Hosp 07/15/23 1223 <Electronically signed by Belem Aponte DO> Cosigner Signature (if applicable): CC: Dr. Tino Oreilly MD; Dr. Belem Aponte DO~ Signed [facility] Work Phone: Discharge summary Author Eulogio Jiang [facility] January 15, 2024 12:23am Note Date/Time January 15, 2024 12:13am [facility] Medical Records Department [address] [place] [address] Emergency Department Summary 01/15/24 MR#: [id number] Acct: [id number] Name: MACARIO WALLACE Rep #:[id number] : [...] therefore comes in for evaluation. [facility] Medical History (Updated 01/15/24 @ 00:23 by [...] % (Auto) 68.8 Lymph % (Auto) 23.8 [place] % (Auto) 3.6 Eos % (Auto) 2.1 [...] 23:51 EST Reading Location ID and State: [address] [place] [address] Tel , Service support , Chest x-ray [...] 80 mg tablet 80 mg PO QHS seakmgmp-wuma-HD-calcium-mins 1 EACH tablet 1 ea PO DAILY [...] your Primary Care Provider. Call [facility] ([phone]) or report to the closest Emergency Room. Call 911 if necessary. 01/15/24 0023 <Electronically signed by Eulogio Jiang DO> Cosigner Signature (if applicable): CC: Dr. Delmy Solorzano MD ~ Signed [facility] Work Phone: Evaluation note* Diagnosis Chronic diastolic heart failure (HCC) Chronic diastolic heart failure [facility] [place] Diagnosis Onset Date Resolution Status Pneumonia acute Right leg pain acute Acute hyponatremia resolved Acute on chronic respiratory failure with hypoxia and hypercapnia resolved KERRY (acute kidney injury) re solved CHI (closed head injury) res olved Congestive heart failure acu te Acute and chronic respiratory failure with hypoxia chronic Chronic diastolic (congestive) heart failure chronic Morbid obesity chronic 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 [facility] Work Phone: Evaluation note* Diagnosis Type 2 diabetes mellitus with diabetic polyneuropathy, with long-term current use of insulin (HCC)- Primary Dysuria LOGAN (obstructive sleep apnea) 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 (adult) (pediatric) Essential hypertension Unspecified essential hypertension Chronic respiratory failure with hypoxia (HCC) Chronic respiratory failure Hyperlipidemia, unspecified hyperlipidemia type documented [facility] [place] [facility]* Diagnosis Chronic diastolic heart failure (HCC)- Primary Chronic diastolic heart failure [facility] [place] [facility]* Diagnosis Vaginal rasta Candidiasis of vulva and vagina Type 2 diabetes mellitus with diabetic polyneuropathy, with long-term current use of insulin (HCC) documented [facility] [place] [facility]* Diagnosis Type 2 diabetes mellitus with diabetic polyneuropathy, with long-term current use of insulin (HCC)- Primary [facility] [place] [facility]* Diagnosis Type 2 diabetes mellitus with diabetic polyneuropathy, with long-term current use of insulin (HCC) documented [facility] [place] [facility]* Diagnosis Type 2 diabetes mellitus with diabetic polyneuropathy, with long-term current use of insulin (HCC) documented [facility] [place] [facility]* Diagnosis Type 2 diabetes mellitus with diabetic polyneuropathy, with long-term current use of insulin (HCC)- Primary [facility] [place] [facility]* Diagnosis Encounter for screening mammogram for breast cancer documented in this encounter [facility] note* Diagnosis Chronic diastolic heart failure (HCC) Chronic diastolic heart failure Type 2 diabetes mellitus with diabetic polyneuropathy, with long-term current use of insulin (HCC) documented in this encounter [facility] note* Diagnosis Type 2 diabetes mellitus [...] Tachycardia Tachycardia, unspecified documented in this encounter [facility] note* Diagnosis Screening for colon cancer- Primary Special screening for malignant neoplasms, colon Chest pain, unspecified type Morbid obesity (HCC) Morbid obesity documented in this encounter [facility] note* Diagnosis Type 2 diabetes mellitus with diabetic polyneuropathy, with long-term current use of insulin (HCC)- Primary documented in this encounter [facility] note* Diagnosis Chronic diastolic heart failure (HCC) Chronic diastolic heart failure Type 2 diabetes mellitus with diabetic polyneuropathy, with long-term current use of insulin (HCC) documented in this encounter [facility] noteNo assessment information availableWFairfield [facility] Work Phone: Evaluation note* Diagnosis Onset Date Resolution Status Acute on chronic heart failu re with normal ejection fraction acute Acute and chronic respiratory failure with hypoxia [facility] Work Phone: Evaluation note* Diagnosis Type 2 diabetes mellitus with diabetic polyneuropathy, with long-term current use of insulin (HCC) documented in this encounter [facility] note* Diagnosis Acute diastolic CHF (congestive heart [...] Tobacco use disorder [facility] [place] [facility]* Diagnosis Type 2 diabetes mellitus with diabetic polyneuropathy, with long-term current use of insulin ([facility])- Primary History of tobacco use Personal history of tobacco use, presenting hazards to health [facility]* Diagnosis Onychomycosis- Primary Dermatophytosis of nail Pain in toe of left foot Pain in limb Pain in toe of right foot Pain in limb Other diabetic neurological complication associated with type 2 diabetes mellitus ([facility]) Hyperkeratosis Acquired keratoderma Chronic venous insufficiency Unspecified venous (peripheral) insufficiency Diminished pulses in lower extremity Other symptoms involving cardiovascular system documented [facility] this encounter [facility] [place] [facility]* Diagnosis Strep pharyngitis- Primary Streptococcal sore throat Reactive airway disease with acute exacerbation, unspecified asthma severity, unspecified whether persistent Tremor Abnormal involuntary movements LOGAN treated with BiPAP Morbid obesity (HCC) Morbid obesity Type 2 diabetes mellitus with diabetic polyneuropathy, with long-term current use of insulin ([facility]) Episodic lightheadedness Dizziness and giddiness Dehydration [facility] [place] [facility] Diagnosis KERRY (acute kidney injury) ([facility])- Primary Acute kidney failure, unspecified [facility] [place] [facility]* Diagnosis Acute diastolic CHF (congestive heart failure) ([facility]) Acute diastolic heart failure Bilateral lower extremity edema Edema documented in this encounter [facility] note* Diagnosis Onset Date Resolution Status Acute on chronic heart failu re with normal ejection fraction acute Acute and chronic respiratory failure with hypoxia chronic KERRY (acute kidney injury) ac yaa Metabolic encephalopathy acu te Unable to ambulate acute Essential hypertension chron ic Type 2 diabetes mellitus [facility] Work Phone: Evaluation note* Diagnosis Type 2 diabetes mellitus with diabetic polyneuropathy, with long-term current use of insulin ([facility]) [facility] [place] [facility]* Diagnosis Type 2 diabetes mellitus with diabetic polyneuropathy, with long-term current use of insulin ([facility]) Ischemia of heart, chronic Chronic ischemic heart disease, unspecified Tachycardia Tachycardia, unspecified Acute pulmonary embolism without acute cor pulmonale, unspecified pulmonary embolism type ([facility]) Essential hypertension Unspecified essential hypertension Hyperlipidemia, unspecified hyperlipidemia type [facility] [place] [facility]* Diagnosis Necrotizing soft tissue infection [facility] [place] [facility] Diagnosis Onset Date Resolution Status Acute on chronic heart failu re with normal ejection fraction acute Acute and chronic respiratory failure with hypoxia chronic KERRY (acute kidney injury) re solved Metabolic encephalopathy res olved Unable to ambulate resolved [facility] Work Phone: Evaluation note* Diagnosis Open wounds involving multiple regions of lower extremity- Primary [facility] [place] [facility]* Diagnosis Onset Date Resolution Status KERRY (acute kidney injury) re solved Metabolic encephalopathy res olved Unable to ambulate resolved [facility] Work Phone: Evaluation note* Diagnosis Abscess of groin, left- Primary Cellulitis and abscess of trunk Non-healing open wound of left groin, initial encounter Necrotizing soft tissue infection Cellulitis of skin Cellulitis and abscess of unspecified site Type 2 diabetes mellitus with diabetic polyneuropathy, with long-term current use of insulin ([facility]) [facility] [place] [facility]* Diagnosis Onset Date Resolution Status KERRY [...] hypoxia and hypercapnia chronic 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 shay [facility] Work Phone: Evaluation note* Diagnosis Hospital [...] with reason given [facility] [place] [facility]* Diagnosis Onset Date Resolution Status KERRY [...] abscess resolved Pneumonia resolved Severe sepsis resolved [facility] Work Phone: Evaluation note* Diagnosis Pressure injury of other site, stage 2 (HCC)- Primary [facility] [place] [facility]* Diagnosis Anxiety and depression Dysthymic disorder Type 2 diabetes mellitus with diabetic polyneuropathy, with long-term current use of insulin (HCC) Essential hypertension Unspecified essential hypertension Hyperlipidemia, unspecified hyperlipidemia type [facility] [place] [facility]* Diagnosis Type 2 diabetes mellitus with diabetic polyneuropathy, with long-term current use of insulin (HCC) [facility] [place] [facility]* Diagnosis Encounter for screening mammogram for breast cancer documented [facility] [place] [facility]* Diagnosis Type 2 diabetes mellitus with diabetic polyneuropathy, with long-term current use of insulin (HCC) [facility] [place] [facility]* Diagnosis Type 2 diabetes mellitus with diabetic polyneuropathy, with long-term current use of insulin ([facility]) [facility] [place] [facility]* Diagnosis Tobacco use Tobacco use disorder [facility] Diagnosis Onset Date Resolution Status COPD with acute exacerbation resolved Elevated lactic acid level r esolved Chest pain acute CHF (congestive heart failure) acute [facility] Work Phone: Evaluation note* Diagnosis Type 2 diabetes mellitus with diabetic polyneuropathy, with long-term current use of insulin ([facility]) [facility] [place] [facility]* Diagnosis Onset Date Resolution Status Chest pain resolved [facility] Work Phone: Evaluation note* Diagnosis Acute diastolic CHF (congestive heart failure) (HCC) Acute diastolic heart failure Bilateral lower extremity edema Edema [facility] [place] [facility]* Diagnosis Chronic diastolic heart failure (HCC) Chronic diastolic heart failure Decreased lung sounds Abnormal chest sounds [facility] [place] [facility]* Diagnosis Chronic respiratory failure with hypoxia (HCC) Chronic respiratory failure Acute on chronic congestive heart failure, unspecified heart failure type (HCC) [facility] [place] [facility]* Diagnosis Onset Date Resolution Status Admit Date Cellulitis of leg acute Septemb er 2024 9:09pm Elevated troponin acute Septemb er 2024 9:09pm [facility] Work Phone: History and physical note Author Dr. Gill [facility] December 19, 2022 12:23am Note Date/Time December 18, 2022 1 1:45pm [facility] Medical Records Department [address] [place] [address] H&P Exam - Hospitalist 12/18/22 2345 MR#: [id number] Acct: [id number] Name: MACARIO WALLACE Rep #:[id number] : 1975 47 From: Chris Gill MD PCP: Dr. Tino Oreilly MD Status :ADM IN Location: [facility] [id number]- [id number] HPI - General General Date of [...] 4 to 5 L nasal cannula oxygen zmbywc-tnk-xbbqu and CPAP at night tosleep. Reportedly patient did not use either her CPAP oxygen on the day of presentation. [facility] Medical History (Updated 12/19/22 @ 00:18 [...] lozenge 2 mg PO PRN PRN Smoking Eoobrhbyw89/09/23 [History Last Taken 12/08/22] prednisone 20 mg [...] 84.5 H, Lymph % (Auto) 8.9 L, [place] % (Auto) 5.2, Eos % (Auto) 0.3, [...] Clarity Clear, Urine pH 6.0, Ur Specific [place] 1.010, Urine Protein Negative, Urine Glucose (UA) [...] mellitus complication status: with hyperosmolarity Diabetes mellitus correction insulin use: with correction use Qualified Code(s): E11.01 - Type 2 diabetes mellitus with hyperosmolarity with coma; Z79.4 - salvage determiner (current) use of insulin (5) Essential hypertension: [...] Lovenox ordered. Charges/Coding Visit Charges Inpatient E&M: 37167 Init Hosp L3 12/19/22 0023 <Electronically signed by Chris Gill MD> Cosigner Signature (if applicable): CC: Dr. Tino Oreilly MD; Dr. Chris Gill MD~ Signed [facility] Work Phone: History and physical note Author Olamide Mas [facility] Note Date/Time August 16, 2025 9:32pm [facility] Medical Records Department [address] [place] [address] H&P Exam - Hospitalist 08/16/252105 MR#: [id number] Acct: [id number] Name: MACARIO WALLACE Rep #:[id number] : 1975 50 From: Olamide Mas MD PCP: Dr. Delmy Solorzano MD Status:ADM IN Location: [place] [id number] HPI - General General Date of [...] neuropathy, Hx VTE who presents to the [facility] ED on 08/16/2025 with history of [...] now upon current presentation up to408 pounds. [facility] Medical History (Updated 08/16/25 @ 21:32 [...] 2.5 mg/3 mL 2.5 mg inhalation Q4H [place] N SOB 12/09/22 07/10/23 History (0.083 %) [...] (Auto) 72.2 H, Lymph % (Auto) 20.4, [place] % (Auto) 4.1, Eos % (Auto) 2.0, [...] airspace consolidation or pleural effusions. 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 Charges/Coding Visit Charges Inpatient E&M: 15225 Init Hosp L3 08/16/252131 <Electronically signed by Olamide Mas MD> Cosign Signature (if applicable): CC: Dr. Olamide Mas MD; Dr. Delmy Solorzano MD~ Signed [facility] Work Phone: Hospital Discharge instructions Additional Instructions Please follow-up with your surgeon for repeat evaluation. Take antibiotic as directed to resolve any returning infection and if you have any further concerns or develop a fever please [facility] the [facility] Work Phone: Hospital Discharge instructions Additional Instructions [...] any further concerns please return for repeat evaluation.[facility] Work Phone: Hospital Discharge instructions Additional Instructions Please continue all of your home medications as directed by your family doctor and return to the ER should you have any further concernsWFair[facility] Work Phone: Patient's home Plan of care note* Visit Details Visit Type -SN SOC Discipline -Shelter Problems Problem Description Start Date Status Goals [...] and oxygen safety. [facility] Visit Details Visit Type -Care Coordinatio n Discipline -Video Library Assistant Problems Problem Description Start Date Status Goals Interve ntions KILN LOADER Referral Disciplines: Skilled Services 02/23/2023 Resolved on 02/25/2023 1 goal linked to scheduled/document ed intervention 1 goal intervention scheduled/document ed in this visit Goals Goal Associated Problem Outcome Goal Met? Visit Notes Patient will be referred to additional discipline as needed KILN LOADER Referral Completed Yes Interventions Intervention Associated Problem/Goal Status Variance Visit Notes KILN LOADER evaluation and treatment Description: KILN LOADER Referral eval and treat for Community Resources. 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 documented in this encounter [facility]'s home Plan of care note* Visit Details Visit Type -SN AGENCY DC WO VISIT Discipline -Shelter Problems Problem Description Start Date Status Goals [...] Assessment Completed Yes documented in this encounter [facility]'s home Plan of care note* Visit Details Visit Type -SN SOC Discipline -Shelter Problems Problem Description Start Date Status Goals [...] bony prominences, Routine skin care and Notifying [facility] clinician of changes to skin integrity SPO2 [...] Discuss all medications you are taking, even anin-vgd-ebcjvlx medicines, with your provider and pharmacist since [...] after incontinence episode. [facility] Visit Details Visit Type -SN ROUTINE Discipline -Shelter Problems Problem Description Start Date Status Goals [...] bony prominences, Routine skin care and Notifying [facility] clinician of changes to skin integrity SPO2 [...] Discuss all medications you are taking, even pwqy-xwq-igjnknw medicines, with your provider and pharmacist since [...] of pads/protective garments. documented in this encounter [facility]'s home Plan of care note* [...] and teach back. documented in this encounter [facility]'s home Plan of care note* Visit Details Visit Type -SN ROUTINE Discipline -Shelter Problems Problem Description Start Date Status Goals [...] Discuss all medications you are taking, even jgse-fxp-fzuwzwo medicines, with your provider and pharmacist since [...] and pain management. documented in this encounter [facility]'s home Plan of care note* Visit Details Visit Type -SN ROUTINE Discipline -Shelter Problems Problem Description Start Date Status Goals [...] Discuss all medications you are taking, even ycbu-hbr-plfkzwb medicines, with your provider and pharmacist since [...] pulmonary disease management. documented in this encounter [facility]'s home Plan of care note* Visit Details Visit Type -SN ROUTINE Discipline -Shelter Problems Problem Description Start Date Status Goals [...] Discuss all medications you are taking, even uena-ewv-eldxlgi medicines, with your provider and pharmacist since [...] pulmonary disease management. [facility] Visit Details Visit Type -SN ROUTINE Discipline -Shelter Problems Problem Description Start Date Status Goals [...] and oxygen safety. [facility] Visit Details Visit Type -SN JIGNESH Discipline -Shelter Problems Problem Description Start Date Status Goals [...] indicated to help with indigestion. Taking an pbzq-cwh-gucrxve probiotic or eating yogurt with live and [...] Discuss all medications you are taking, even evpe-pjo-pnizbzg medicines, with your provider and pharmacist since [...] COPD management and energy conservation pacing activities, [place] in ADLs vs what caregiver should be [...] the COPD binder. [facility] Visit Details [...] of pulmonary disease. documented in this encounter [facility]'s home Plan of care note* Visit Details Visit Type -SN AGENCY DC W Lilli LIN Discipline -Shelter Problems Problem Description Start Date Status Goals [...] without ongoing services documented in this encounter [facility] for referral (narrative)* Diagnostic Procedure Only (Routine) - Pending Review Specialty Diagnoses / Procedures Referred By Aarti coulter Referred To Contact [facility] Diagnoses Encounter for screening mammogram for breast cancer Procedures SHERYL SCREENING SCREENING MAMMOGRAPHY BI 2-VIEW BREAST INC CAD Panfilo Oreilly MD [address] [place] [address] [facility] [address] [place] [address] Referral ID Status Reason Start Date Expiration Date Visits Requested Visits Authorized [id number] Pending Review Auto-Generat ed Referral 05/29/2022 06/28/2023 1 1 [facility] for referral (narrative)* Outpatient Procedure (Routine) - Closed Specialty Diagnoses / Procedures Referred By Aarti coulter Referred To [facility] Diagnoses Acute diastolic CHF (congestive heart failure) (HCC) Other chest pain Procedures ECG COMPLETE ECG ROUTINE ECG W/LEAST 12 LDS W/I&R Panfilo Oreilly MD [address] [place] [address] [facility] [place] [address] [place] [address] Referral ID Status Reason Start Date Expiration Date V isits Requested Visits Authorized [id number] Closed Auto-Generate d Referral 10/18/2022 10/18/2023 1 1 * Diagnostic Procedure Only (Urgent) - Pending Review Specialty Diagnoses / Procedures Referred By Contact Referred To Contact [facility] Diagnoses Acute diastolic CHF (congestive heart failure) (HCC) Procedures NM CARDIAC PERF STRESS/PHARM MYOCARDIAL SPECT MULTIPLE STUDIES Panfilo Oreilly MD [address] [place] [address] [facility] [address] [place] [address] Referral ID Status Reason Start Date Expiration Date Visits Requested Visits Authorized [id number] Pending Review Auto-Generat ed Referral 2 11/17/2023 1 1 * Consult, Test, Treat (Routine) - Authorized Specialty Diagnoses / Procedures Referred By Contac t Referred To Contact Cardiology Diagnoses Acute diastolic CHF (congestive heart failure) (HCC) Procedures CONSULT TO CARDIOLOGY OFFICE/OUTPATIENT [facility] 60-74 MINUTES Panfilo Oreilly MD [address] [place] [address] Referral ID Status Reason Start Date Expiration Date Visits Requested Visits Authorized [id number] Authorized PCP Requested Referral 2 10/18/2023 1 1 [facility] for referral (narrative)* Outpatient Procedure (Routine) - Pending Review Specialty Diagnoses / Procedures Referred By Aarti t Referred To [facility] Diagnoses Onychomycosis Other diabetic neurological complication associated with type 2 diabetes mellitus (HCC) Diminished pulses in lower extremity Procedures PVR ANK PRESS TAY VAS LAB NON-INVAS PHYSIOLOGIC STD EXTREMITY ART 2 LEVEL [place], Minesh [address] [place] [address] [facility] [place] [address] [place] [address] Referral ID Status Reason Start Date Expiration Date Visits Requested Visits Authorized [id number] Pending Review Auto-Generat ed Referral 11/06/2022 11/06/2023 1 1 [facility] for referral (narrative)* Outpatient Procedure (Urgent) - Authorized Specialty Diagnoses / Procedures Referred By Contact Referred To Contact [facility] Diagnoses Tremor Procedures EPIL EEG ROUTINE ELECTROENCEPHALOGRAM REC COMA/[place] [address] [place] [address] [address] Referral ID Status Reason Start Date Expiration Date Visits Requested Visits Authorized [id number] Authorized Auto-Generat ed Referral 11/08/2022 11/08/2023 1 1 * Consult, Test, Treat (Routine) - Authorized Specialty Diagnoses / Procedures Referred By Aarti coulter Referred To Contact Neurology Diagnoses Tremor Procedures CONSULT TO NEUROLOGY OFFICE/OUTPATIENT [facility] HIGH MDM 60-74 MINUTES Panfilo Oreilly MD [address] [place] [address] Referral ID Status Reason Start Date Expiration Date Visits Requested Visits Authorized [id number] Authorized PCP Requested Referral 11/08/2022 11/08/2023 1 1 [facility] for referral (narrative)* Diagnostic Procedure Only (Routine) - Pending Review Specialty Diagnoses / Procedures Referred By Aarti coulter Referred To Contact [facility] Diagnoses Encounter for screening mammogram for breast cancer Procedures SHERYL SCREENING SCREENING MAMMOGRAPHY BI 2-VIEW BREAST INC CAD Panfilo Oreilly MD [address] [place] [address] [facility] [address] [place] [address] Referral ID Status Reason Start Date Expiration Date Visits Requested Visits Authorized [id number] Pending Review Auto-Generat ed Referral 04/30/2023 05/29/2024 1 1 [facility] for referral (narrative)No reason for referral information availableWFairfield Medical Center Work Phone: Advance Directives No Advanced Directives Records FoundDocuments on File Type Date Recorded 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 Advance Directive(s) 02/05/2022 1:53 PM Advance Directive(s) 10/16/2021 9:28 AM Advance Directive Response Recorded Date/ Time Advance Directives No October 1:07pm Living Will No January 15, 022 7:32pm Power of Asphalt Dauber No January 15, 2022 7:32pm Advance Directive Response Recorded Date/ Time Advance Directives No October 1:07pm Living Will No March 31, 2022 8: 51pm Power of Asphalt Dauber No March 31, 2022 8:51pm Documents on File Type Date Recorded 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 Advance Directive(s) 02/05/2022 1:53 PM Advance Directive(s) 10/16/2021 9:28 AM Advance Directive Response Recorded Date/ Time Advance Directives No October 1:07pm Living Will No September 22 4:36pm Power of Asphalt Dauber No September 22, 2022 4:36pm Advance Directive Response Recorded Date/ Time Advance Directives No October 1:07pm Living Will No September 22 7:35pm Power of Asphalt Dauber No September 22, 2022 7:35pm Advance Directive Response Recorded Date/ Time Advance Directives No October 12:07pm Living Will No September 22 6:35pm Power of Asphalt Dauber No September 22, 2022 6:35pm Advance Directive Response Recorded Date/ Time Advance Directives No October 12:07pm Living Will No November 01 2:42pm Power of Asphalt Dauber No November 01, 2022 2:42pm Advance Directive Response Recorded Date/ Time Advance Directives No October 12:07pm Living Will No December 09 12:54pm Power of Asphalt Dauber No December 09, 2 023 12:54pm Advance Directive Response Recorded Date/ Time Advance Directives No October 12:07pm Living Will No December 18 9:38pm Power of Asphalt Dauber No December 18, 2022 9:38pm Advance Directive Response Recorded Date/ Time Advance Directives No October 12:07pm Living Will No December 19 12:31am Power of Asphalt Dauber No December 19, 2022 12:31am Advance Directive Response Recorded Date/ Time Advance Directives No October 12:07pm Living Will No December 24 9:24pm Power of Asphalt Dauber No December 24, 2022 9:24pm Advance Directive Response Recorded Date/ Time Advance Directives No October 12:07pm Living Will No January 13, 2 023 12:05am Power of Asphalt Dauber No January 13, 2023 12:05am Advance Directive Response Recorded Date/ Time Advance Directives No October 1:07pm Living Will No February 18, 2023 5:23pm Power of Asphalt Dauber No February 18 5:23pm Latest Code Status on File Code Status Date Activated Date Inactivated Comments Full Code 02/25/2023 7:20 AM Latest Code Status on File Code Status Date Activated Date Inactivated Comments Full Code 02/25/2023 7:20 AM Advance Directive Response Recorded Date/ Time Advance Directives No October 1:07pm Living Will No March 02, 2023 4:28pm Power of Asphalt Dauber No March 02 4:28pm Latest Code Status [...] Date/ Time Name of Medical Power of Asphalt Dauber EM THOMAS. July 14, 2023 11:40am Advance Directives No October 1:07pm Living Will No July 14 11:40am Power of Asphalt Dauber Yes July 14, 2 023 11:40am Advance Directive Response Recorded Date/ Time Name of Medical Power of Asphalt Dauber EM THOMAS. July 14, 2023 4:40pm Advance Directives No October 1:07pm Living Will No July 14 4:40pm Power of Asphalt Dauber Yes July 14, 2 023 4:40pm Advance Directive Response Recorded Date/ Time Name of Medical Power of Asphalt Dauber EM THOMAS. July 14, 2023 3:40pm Advance Directives No October 12:07pm Living Will No July 14 3 3:40pm Power of Asphalt Dauber Yes July 14, 2 023 3:40pm Advance Directive Response Recorded Date/ Time Advance Directives No October 12:07pm Living Will No July 14 3:40pm Power of Asphalt Dauber Yes July 14, 2 023 3:40pm Advance Directive Response Recorded Date/ Time Advance Directives No October 12:07pm Living Will No January 14 10:38pm Power of Asphalt Dauber No January 14, 2024 10:38pm Date Activated Date Inactivated Comments 03/07/2023 11:33 PM Date Activated Date Inactivated Comments 02/25/2023 7:20 AM 03/07/2023 11:33 PM Advance Directive Response Recorded Date/ Time Advance Directives No October 1:07pm Living Will No March 27, 2024 10:32pm Power of Asphalt Dauber No March 27 10:32pm Advance Directive Response Recorded Date/ Time Do you have a Healthcare Power of Asphalt Dauber? No August 16, 2025 9:00pm Advance Directives No October 1:07pm Advance Directive Response Recorded Date/ Time Do you have a Healthcare Power of Asphalt Dauber? No August 16, 2025 10:47pm Advance Directives [...] Cellulitis and abscess of right leg [facility]20[facility] 9:09pm Contusion of right great toe with damage to nail August 16, 2025 9:09pm Elevated troponin August 16, 2025 9:09pm Right leg pain August 16, 2025 9:09pm Skin ulcer of left great toe , limited to breakdown of skin August 16, 2025 9:09pm Type 2 diabetes mellitus with hyperglyce mis August 16, 2025 9:09pm [facility] Cellulitis of leg August 16, 2025 9:09pm Sepsis August 16, 2025 9:09pm Family History No Family History Records Found Relationship Condition Age at Onset Recorded Date/T kamaljit father Cerebrovascular accident (CVA) Unknown Cardiac disease Unknown Diabetes mellitus Unknown mother Disorder of thyroid Unknown Reason for Referral Specialty Diagnoses / Procedures Referred By Aarti coulter Referred To Contact Panfilo Oreilly MD [address] [place] [address] Referral ID Status Reason Start Date Expiration Date Visits Re quested Visits Authorized [id number] Closed 1 1 Specialty Diagnoses / Procedures Referred By Contac t Referred To Contact Diagnoses Acute pulmonary embolism without acute cor pulmonale, unspecified pulmonary embolism type (HCC) Bacterial pneumonia Panfilo Oreilly MD [address] [place] [address] Referral ID Status Reason Start Date Expiration Date Visits Re quested Visits Authorized [id number] Closed 1 1 Referral ID Status Reason Start Date Expiration Date Visits Re quested Visits Authorized [id number] Closed 1 1 Summary Purpose Medications Administered [...] or prosecute any alcohol or drug abuse patient.[facility]In the event this information is protected by the Federal Confidentiality of Alcohol and Drug Abuse Patient Records regulations: The Federal rules restrict any use of the information to criminally investigate or prosecute any alcohol or drug abuse patient.[facility] HospitalIn the event this information is protected by the Federal Confidentiality of Alcohol and Drug Abuse Patient Records regulations: The Federal rules restrict any use of the information to criminally investigate or prosecute any alcohol or drug abuse patient.[facility] HospitalIn the event this information is protected by the Federal Confidentiality of Alcohol and Drug Abuse Patient Records regulations: The Federal rules restrict any use of the information to criminally investigate or prosecute any alcohol or drug abuse patient.[facility] HospitalIn the event this information is protected by the Federal Confidentiality of Alcohol and Drug Abuse Patient Records regulations: The Federal rules restrict any use of the information to criminally investigate or prosecute any alcohol or drug abuse patient.[facility] HospitalIn the event this information is protected by the Federal Confidentiality of Alcohol and Drug Abuse Patient Records regulations: The Federal rules restrict any use of the information to criminally investigate or prosecute any alcohol or drug abuse patient.[facility] HospitalIn the event this information is protected by the Federal Confidentiality of Alcohol and Drug Abuse Patient Records regulations: The Federal rules restrict any use of the information to criminally investigate or prosecute any alcohol or drug abuse patient.[facility] HospitalIn the event this information is protected by the Federal Confidentiality of Alcohol and Drug Abuse Patient Records regulations: The Federal rules restrict any use of the information to criminally investigate or prosecute any alcohol or drug abuse patient.[facility] HospitalIn the event this information is protected by the Federal Confidentiality of Alcohol and Drug Abuse Patient Records regulations: The Federal rules restrict any use of the information to criminally investigate or prosecute any alcohol or drug abuse patient.[facility] HospitalIn the event this information is protected by the Federal Confidentiality of Alcohol and Drug Abuse Patient Records regulations: The Federal rules restrict any use of the information to criminally investigate or prosecute any alcohol or drug abuse patient.[facility] HospitalIn the event this information is protected by the Federal Confidentiality of Alcohol and Drug Abuse Patient Records regulations: The Federal rules restrict any use of the information to criminally investigate or prosecute any alcohol or drug abuse patient.[facility] HospitalIn the event this information is protected by the Federal Confidentiality of Alcohol and Drug Abuse Patient Records regulations: The Federal rules restrict any use of the information to criminally investigate or prosecute any alcohol or drug abuse patient.[facility] HospitalIn the event this information is protected by the Federal Confidentiality of Alcohol and Drug Abuse Patient Records regulations: The Federal rules restrict any use of the information to criminally investigate or prosecute any alcohol or drug abuse patient.[facility] HospitalIn the event this information is protected by the Federal Confidentiality of Alcohol and Drug Abuse Patient Records regulations: The Federal rules restrict any use of the information to criminally investigate or prosecute any alcohol or drug abuse patient.[facility] HospitalIn the event this information is protected by the Federal Confidentiality of Alcohol and Drug Abuse Patient Records regulations: The Federal rules restrict any use of the information to criminally investigate or prosecute any alcohol or drug abuse patient.[facility] HospitalIn the event this information is protected by the Federal Confidentiality of Alcohol and Drug Abuse Patient Records regulations: The Federal rules restrict any use of the information to criminally investigate or prosecute any alcohol or drug abuse patient.[facility] HospitalIn the event this information is protected by the Federal Confidentiality of Alcohol and Drug Abuse Patient Records regulations: The Federal rules restrict any use of the information to criminally investigate or prosecute any alcohol or drug abuse patient.[facility] HospitalIn the event this information is protected by the Federal Confidentiality of Alcohol and Drug Abuse Patient Records regulations: The Federal rules restrict any use of the information to criminally investigate or prosecute any alcohol or drug abuse patient.[facility] HospitalIn the event this information is protected by the Federal Confidentiality of Alcohol and Drug Abuse Patient Records regulations: The Federal rules restrict any use of the information to criminally investigate or prosecute any alcohol or drug abuse patient.[facility] HospitalIn the event this information is protected by the Federal Confidentiality of Alcohol and Drug Abuse Patient Records regulations: The Federal rules restrict any use of the information to criminally investigate or prosecute any alcohol or drug abuse patient.[facility] HospitalIn the event this information is protected by the Federal Confidentiality of Alcohol and Drug Abuse Patient Records regulations: The Federal rules restrict any use of the information to criminally investigate or prosecute any alcohol or drug abuse patient.[facility] HospitalIn the event this information is protected by the Federal Confidentiality of Alcohol and Drug Abuse Patient Records regulations: The Federal rules restrict any use of the information to criminally investigate or prosecute any alcohol or drug abuse patient.[facility] HospitalIn the event this information is protected by the Federal Confidentiality of Alcohol and Drug Abuse Patient Records regulations: The Federal rules restrict any use of the information to criminally investigate or prosecute any alcohol or drug abuse patient.[facility] HospitalIn the event this information is protected by the Federal Confidentiality of Alcohol and Drug Abuse Patient Records regulations: The Federal rules restrict any use of the information to criminally investigate or prosecute any alcohol or drug abuse patient.[facility] HospitalIn the event this information is protected by the Federal Confidentiality of Alcohol and Drug Abuse Patient Records regulations: The Federal rules restrict any use of the information to criminally investigate or prosecute any alcohol or drug abuse patient.[facility] HospitalIn the event this information is protected by the Federal Confidentiality of Alcohol and Drug Abuse Patient Records regulations: The Federal rules restrict any use of the information to criminally investigate or prosecute any alcohol or drug abuse patient.[facility] HospitalIn the event this information is protected by the Federal Confidentiality of Alcohol and Drug Abuse Patient Records regulations: The Federal rules restrict any use of the information to criminally investigate or prosecute any alcohol or drug abuse patient.[facility] HospitalIn the event this information is protected by the Federal Confidentiality of Alcohol and Drug Abuse Patient Records regulations: The Federal rules restrict any use of the information to criminally investigate or prosecute any alcohol or drug abuse patient.[facility] HospitalIn the event this information is protected by the Federal Confidentiality of Alcohol and Drug Abuse Patient Records regulations: The Federal rules restrict any use of the information to criminally investigate or prosecute any alcohol or drug abuse patient.[facility] HospitalIn the event this information is protected by the Federal Confidentiality of Alcohol and Drug Abuse Patient Records regulations: The Federal rules restrict any use of the information to criminally investigate or prosecute any alcohol or drug abuse patient.[facility] HospitalIn the event this information is protected by the Federal Confidentiality of Alcohol and Drug Abuse Patient Records regulations: The Federal rules restrict any use of the information to criminally investigate or prosecute any alcohol or drug abuse patient.[facility] HospitalIn the event this information is protected by the Federal Confidentiality of Alcohol and Drug Abuse Patient Records regulations: The Federal rules restrict any use of the information to criminally investigate or prosecute any alcohol or drug abuse patient.[facility] HospitalIn the event this information is protected by the Federal Confidentiality of Alcohol and Drug Abuse Patient Records regulations: The Federal rules restrict any use of the information to criminally investigate or prosecute any alcohol or drug abuse patient.[facility] HospitalIn the event this information is protected by the Federal Confidentiality of Alcohol and Drug Abuse Patient Records regulations: The Federal rules restrict any use of the information to criminally investigate or prosecute any alcohol or drug abuse patient.[facility] HospitalIn the event this information is protected by the Federal Confidentiality of Alcohol and Drug Abuse Patient Records regulations: The Federal rules restrict any use of the information to criminally investigate or prosecute any alcohol or drug abuse patient.[facility] HospitalIn the event this information is protected by the Federal Confidentiality of Alcohol and Drug Abuse Patient Records regulations: The Federal rules restrict any use of the information to criminally investigate or prosecute any alcohol or drug abuse patient.[facility] HospitalIn the event this information is protected by the Federal Confidentiality of Alcohol and Drug Abuse Patient Records regulations: The Federal rules restrict any use of the information to criminally investigate or prosecute any alcohol or drug abuse patient.[facility] HospitalIn the event this information is protected by the Federal Confidentiality of Alcohol and Drug Abuse Patient Records regulations: The Federal rules restrict any use of the information to criminally investigate or prosecute any alcohol or drug abuse patient.[facility] HospitalIn the event this information is protected by the Federal Confidentiality of Alcohol and Drug Abuse Patient Records regulations: The Federal rules restrict any use of the information to criminally investigate or prosecute any alcohol or drug abuse patient.[facility] HospitalIn the event this information is protected by the Federal Confidentiality of Alcohol and Drug Abuse Patient Records regulations: The Federal rules restrict any use of the information to criminally investigate or prosecute any alcohol or drug abuse patient.[facility] HospitalIn the event this information is protected by the Federal Confidentiality of Alcohol and Drug Abuse Patient Records regulations: The Federal rules restrict any use of the information to criminally investigate or prosecute any alcohol or drug abuse patient.[facility] HospitalIn the event this information is protected by the Federal Confidentiality of Alcohol and Drug Abuse Patient Records regulations: The Federal rules restrict any use of the information to criminally investigate or prosecute any alcohol or drug abuse patient.[facility] HospitalIn the event this information is protected by the Federal Confidentiality of Alcohol and Drug Abuse Patient Records regulations: The Federal rules restrict any use of the information to criminally investigate or prosecute any alcohol or drug abuse patient.[facility] HospitalIn the event this information is protected by the Federal Confidentiality of Alcohol and Drug Abuse Patient Records regulations: The Federal rules restrict any use of the information to criminally investigate or prosecute any alcohol or drug abuse patient.[facility] HospitalIn the event this information is protected by the Federal Confidentiality of Alcohol and Drug Abuse Patient Records regulations: The Federal rules restrict any use of the information to criminally investigate or prosecute any alcohol or drug abuse patient.[facility] HospitalIn the event this information is protected by the Federal Confidentiality of Alcohol and Drug Abuse Patient Records regulations: The Federal rules restrict any use of the information to criminally investigate or prosecute any alcohol or drug abuse patient.[facility] HospitalIn the event this information is protected by the Federal Confidentiality of Alcohol and Drug Abuse Patient Records regulations: The Federal rules restrict any use of the information to criminally investigate or prosecute any alcohol or drug abuse patient.[facility] HospitalIn the event this information is protected by the Federal Confidentiality of Alcohol and Drug Abuse Patient Records regulations: The Federal rules restrict any use of the information to criminally investigate or prosecute any alcohol or drug abuse patient.[facility] HospitalIn the event this information is protected by the Federal Confidentiality of Alcohol and Drug Abuse Patient Records regulations: The Federal rules restrict any use of the information to criminally investigate or prosecute any alcohol or drug abuse patient.[facility] HospitalIn the event this information is protected by the Federal Confidentiality of Alcohol and Drug Abuse Patient Records regulations: The Federal rules restrict any use of the information to criminally investigate or prosecute any alcohol or drug abuse patient.[facility] HospitalIn the event this information is protected by the Federal Confidentiality of Alcohol and Drug Abuse Patient Records regulations: The Federal rules restrict any use of the information to criminally investigate or prosecute any alcohol or drug abuse patient.[facility] HospitalIn the event this information is protected by the Federal Confidentiality of Alcohol and Drug Abuse Patient Records regulations: The Federal rules restrict any use of the information to criminally investigate or prosecute any alcohol or drug abuse patient.[facility] HospitalIn the event this information is protected by the Federal Confidentiality of Alcohol and Drug Abuse Patient Records regulations: The Federal rules restrict any use of the information to criminally investigate or prosecute any alcohol or drug abuse patient.[facility] HospitalIn the event this information is protected by the Federal Confidentiality of Alcohol and Drug Abuse Patient Records regulations: The Federal rules restrict any use of the information to criminally investigate or prosecute any alcohol or drug abuse patient.[facility] HospitalIn the event this information is protected by the Federal Confidentiality of Alcohol and Drug Abuse Patient Records regulations: The Federal rules restrict any use of the information to criminally investigate or prosecute any alcohol or drug abuse patient.[facility] HospitalIn the event this information is protected by the Federal Confidentiality of Alcohol and Drug Abuse Patient Records regulations: The Federal rules restrict any use of the information to criminally investigate or prosecute any alcohol or drug abuse patient.[facility] HospitalIn the event this information is protected by the Federal Confidentiality of Alcohol and Drug Abuse Patient Records regulations: The Federal rules restrict any use of the information to criminally investigate or prosecute any alcohol or drug abuse patient.[facility] HospitalIn the event this information is protected by the Federal Confidentiality of Alcohol and Drug Abuse Patient Records regulations: The Federal rules restrict any use of the information to criminally investigate or prosecute any alcohol or drug abuse patient.[facility] HospitalIn the event this information is protected by the Federal Confidentiality of Alcohol and Drug Abuse Patient Records regulations: The Federal rules restrict any use of the information to criminally investigate or prosecute any alcohol or drug abuse patient.[facility] HospitalIn the event this information is protected by the Federal Confidentiality of Alcohol and Drug Abuse Patient Records regulations: The Federal rules restrict any use of the information to criminally investigate or prosecute any alcohol or drug abuse patient.[facility] HospitalIn the event this information is protected by the Federal Confidentiality of Alcohol and Drug Abuse Patient Records regulations: The Federal rules restrict any use of the information to criminally investigate or prosecute any alcohol or drug abuse patient.[facility] HospitalIn the event this information is protected by the Federal Confidentiality of Alcohol and Drug Abuse Patient Records regulations: The Federal rules restrict any use of the information to criminally investigate or prosecute any alcohol or drug abuse patient.[facility] HospitalIn the event this information is protected by the Federal Confidentiality of Alcohol and Drug Abuse Patient Records regulations: The Federal rules restrict any use of the information to criminally investigate or prosecute any alcohol or drug abuse patient.[facility] HospitalIn the event this information is protected by the Federal Confidentiality of Alcohol and Drug Abuse Patient Records regulations: The Federal rules restrict any use of the information to criminally investigate or prosecute any alcohol or drug abuse patient.[facility] HospitalIn the event this information is protected by the Federal Confidentiality of Alcohol and Drug Abuse Patient Records regulations: The Federal rules restrict any use of the information to criminally investigate or prosecute any alcohol or drug abuse patient.[facility] HospitalIn the event this information is protected by the Federal Confidentiality of Alcohol and Drug Abuse Patient Records regulations: The Federal rules restrict any use of the information to criminally investigate or prosecute any alcohol or drug abuse patient.[facility] HospitalIn the event this information is protected by the Federal Confidentiality of Alcohol and Drug Abuse Patient Records regulations: The Federal rules restrict any use of the information to criminally investigate or prosecute any alcohol or drug abuse patient.[facility] HospitalIn the event this information is protected by the Federal Confidentiality of Alcohol and Drug Abuse Patient Records regulations: The Federal rules restrict any use of the information to criminally investigate or prosecute any alcohol or drug abuse patient.[facility] HospitalIn the event this information is protected by the Federal Confidentiality of Alcohol and Drug Abuse Patient Records regulations: The Federal rules restrict any use of the information to criminally investigate or prosecute any alcohol or drug abuse patient.[facility] HospitalIn the event this information is protected by the Federal Confidentiality of Alcohol and Drug Abuse Patient Records regulations: The Federal rules restrict any use of the information to criminally investigate or prosecute any alcohol or drug abuse patient.[facility] HospitalIn the event this information is protected by the Federal Confidentiality of Alcohol and Drug Abuse Patient Records regulations: The Federal rules restrict any use of the information to criminally investigate or prosecute any alcohol or drug abuse patient.[facility] HospitalIn the event this information is protected by the Federal Confidentiality of Alcohol and Drug Abuse Patient Records regulations: The Federal rules restrict any use of the information to criminally investigate or prosecute any alcohol or drug abuse patient.[facility] HospitalIn the event this information is protected by the Federal Confidentiality of Alcohol and Drug Abuse Patient Records regulations: The Federal rules restrict any use of the information to criminally investigate or prosecute any alcohol or drug abuse patient.[facility] HospitalIn the event this information is protected by the Federal Confidentiality of Alcohol and Drug Abuse Patient Records regulations: The Federal rules restrict any use of the information to criminally investigate or prosecute any alcohol or drug abuse patient.[facility] HospitalIn the event this information is protected by the Federal Confidentiality of Alcohol and Drug Abuse Patient Records regulations: The Federal rules restrict any use of the information to criminally investigate or prosecute any alcohol or drug abuse patient.[facility] HospitalIn the event this information is protected by the Federal Confidentiality of Alcohol and Drug Abuse Patient Records regulations: The Federal rules restrict any use of the information to criminally investigate or prosecute any alcohol or drug abuse patient.[facility] HospitalIn the event this information is protected by the Federal Confidentiality of Alcohol and Drug Abuse Patient Records regulations: The Federal rules restrict any use of the information to criminally investigate or prosecute any alcohol or drug abuse patient.[facility] HospitalIn the event this information is protected by the Federal Confidentiality of Alcohol and Drug Abuse Patient Records regulations: The Federal rules restrict any use of the information to criminally investigate or prosecute any alcohol or drug abuse patient.[facility] HospitalIn the event this information is protected by the Federal Confidentiality of Alcohol and Drug Abuse Patient Records regulations: The Federal rules restrict any use of the information to criminally investigate or prosecute any alcohol or drug abuse patient.[facility] HospitalIn the event this information is protected by the Federal Confidentiality of Alcohol and Drug Abuse Patient Records regulations: The Federal rules restrict any use of the information to criminally investigate or prosecute any alcohol or drug abuse patient.[facility] HospitalIn the event this information is protected by the Federal Confidentiality of Alcohol and Drug Abuse Patient Records regulations: The Federal rules restrict any use of the information to criminally investigate or prosecute any alcohol or drug abuse patient.[facility] HospitalIn the event this information is protected by the Federal Confidentiality of Alcohol and Drug Abuse Patient Records regulations: The Federal rules restrict any use of the information to criminally investigate or prosecute any alcohol or drug abuse patient.[facility] HospitalIn the event this information is protected by the Federal Confidentiality of Alcohol and Drug Abuse Patient Records regulations: The Federal rules restrict any use of the information to criminally investigate or prosecute any alcohol or drug abuse patient.[facility] HospitalIn the event this information is protected by the Federal Confidentiality of Alcohol and Drug Abuse Patient Records regulations: The Federal rules restrict any use of the information to criminally investigate or prosecute any alcohol or drug abuse patient.[facility] HospitalIn the event this information is protected by the Federal Confidentiality of Alcohol and Drug Abuse Patient Records regulations: The Federal rules restrict any use of the information to criminally investigate or prosecute any alcohol or drug abuse patient.[facility] HospitalIn the event this information is protected by the Federal Confidentiality of Alcohol and Drug Abuse Patient Records regulations: The Federal rules restrict any use of the information to criminally investigate or prosecute any alcohol or drug abuse patient.[facility] HospitalIn the event this information is protected by the Federal Confidentiality of Alcohol and Drug Abuse Patient Records regulations: The Federal rules restrict any use of the information to criminally investigate or prosecute any alcohol or drug abuse patient.[facility] HospitalIn the event this information is protected by the Federal Confidentiality of Alcohol and Drug Abuse Patient Records regulations: The Federal rules restrict any use of the information to criminally investigate or prosecute any alcohol or drug abuse patient.[facility] HospitalIn the event this information is protected by the Federal Confidentiality of Alcohol and Drug Abuse Patient Records regulations: The Federal rules restrict any use of the information to criminally investigate or prosecute any alcohol or drug abuse patient.[facility] HospitalIn the event this information is protected by the Federal Confidentiality of Alcohol and Drug Abuse Patient Records regulations: The Federal rules restrict any use of the information to criminally investigate or prosecute any alcohol or drug abuse patient.[facility] HospitalIn the event this information is protected by the Federal Confidentiality of Alcohol and Drug Abuse Patient Records regulations: The Federal rules restrict any use of the information to criminally investigate or prosecute any alcohol or drug abuse patient.[facility] HospitalIn the event this information is protected by the Federal Confidentiality of Alcohol and Drug Abuse Patient Records regulations: The Federal rules restrict any use of the information to criminally investigate or prosecute any alcohol or drug abuse patient.[facility] HospitalIn the event this information is protected by the Federal Confidentiality of Alcohol and Drug Abuse Patient Records regulations: The Federal rules restrict any use of the information to criminally investigate or prosecute any alcohol or drug abuse patient.[facility] HospitalIn the event this information is protected by the Federal Confidentiality of Alcohol and Drug Abuse Patient Records regulations: The Federal rules restrict any use of the information to criminally investigate or prosecute any alcohol or drug abuse patient.[facility] HospitalIn the event this information is protected by the Federal Confidentiality of Alcohol and Drug Abuse Patient Records regulations: The Federal rules restrict any use of the information to criminally investigate or prosecute any alcohol or drug abuse patient.[facility] HospitalIn the event this information is protected by the Federal Confidentiality of Alcohol and Drug Abuse Patient Records regulations: The Federal rules restrict any use of the information to criminally investigate or prosecute any alcohol or drug abuse patient.[facility] HospitalIn the event this information is protected by the Federal Confidentiality of Alcohol and Drug Abuse Patient Records regulations: The Federal rules restrict any use of the information to criminally investigate or prosecute any alcohol or drug abuse patient.[facility] HospitalIn the event this information is protected by the Federal Confidentiality of Alcohol and Drug Abuse Patient Records regulations: The Federal rules restrict any use of the information to criminally investigate or prosecute any alcohol or drug abuse patient.[facility] HospitalIn the event this information is protected by the Federal Confidentiality of Alcohol and Drug Abuse Patient Records regulations: The Federal rules restrict any use of the information to criminally investigate or prosecute any alcohol or drug abuse patient.[facility] HospitalIn the event this information is protected by the Federal Confidentiality of Alcohol and Drug Abuse Patient Records regulations: The Federal rules restrict any use of the information to criminally investigate or prosecute any alcohol or drug abuse patient.[facility] HospitalIn the event this information is protected by the Federal Confidentiality of Alcohol and Drug Abuse Patient Records regulations: The Federal rules restrict any use of the information to criminally investigate or prosecute any alcohol or drug abuse patient.[facility] HospitalIn the event this information is protected by the Federal Confidentiality of Alcohol and Drug Abuse Patient Records regulations: The Federal rules restrict any use of the information to criminally investigate or prosecute any alcohol or drug abuse patient.[facility] HospitalIn the event this information is protected by the Federal Confidentiality of Alcohol and Drug Abuse Patient Records regulations: The Federal rules restrict any use of the information to criminally investigate or prosecute any alcohol or drug abuse patient.[facility] HospitalIn the event this information is protected by the Federal Confidentiality of Alcohol and Drug Abuse Patient Records regulations: The Federal rules restrict any use of the information to criminally investigate or prosecute any alcohol or drug abuse patient.[facility] HospitalIn the event this information is protected by the Federal Confidentiality of Alcohol and Drug Abuse Patient Records regulations: The Federal rules restrict any use of the information to criminally investigate or prosecute any alcohol or drug abuse patient.[facility] HospitalIn the event this information is protected by the Federal Confidentiality of Alcohol and Drug Abuse Patient Records regulations: The Federal rules restrict any use of the information to criminally investigate or prosecute any alcohol or drug abuse patient.[facility] HospitalIn the event this information is protected by the Federal Confidentiality of Alcohol and Drug Abuse Patient Records regulations: The Federal rules restrict any use of the information to criminally investigate or prosecute any alcohol or drug abuse patient.[facility] HospitalIn the event this information is protected by the Federal Confidentiality of Alcohol and Drug Abuse Patient Records regulations: The Federal rules restrict any use of the information to criminally investigate or prosecute any alcohol or drug abuse patient.[facility] HospitalIn the event this information is protected by the Federal Confidentiality of Alcohol and Drug Abuse Patient Records regulations: The Federal rules restrict any use of the information to criminally investigate or prosecute any alcohol or drug abuse patient.[facility] HospitalIn the event this information is protected by the Federal Confidentiality of Alcohol and Drug Abuse Patient Records regulations: The Federal rules restrict any use of the information to criminally investigate or prosecute any alcohol or drug abuse patient.[facility] HospitalIn the event this information is protected by the Federal Confidentiality of Alcohol and Drug Abuse Patient Records regulations: The Federal rules restrict any use of the information to criminally investigate or prosecute any alcohol or drug abuse patient.[facility] HospitalIn the event this information is protected by the Federal Confidentiality of Alcohol and Drug Abuse Patient Records regulations: The Federal rules restrict any use of the information to criminally investigate or prosecute any alcohol or drug abuse patient.[facility] HospitalIn the event this information is protected by the Federal Confidentiality of Alcohol and Drug Abuse Patient Records regulations: The Federal rules restrict any use of the information to criminally investigate or prosecute any alcohol or drug abuse patient.[facility] HospitalIn the event this information is protected by the Federal Confidentiality of Alcohol and Drug Abuse Patient Records regulations: The Federal rules restrict any use of the information to criminally investigate or prosecute any alcohol or drug abuse patient.[facility] HospitalIn the event this information is protected by the Federal Confidentiality of Alcohol and Drug Abuse Patient Records regulations: The Federal rules restrict any use of the information to criminally investigate or prosecute any alcohol or drug abuse patient.[facility] HospitalIn the event this information is protected by the Federal Confidentiality of Alcohol and Drug Abuse Patient Records regulations: The Federal rules restrict any use of the information to criminally investigate or prosecute any alcohol or drug abuse patient.[facility] HospitalIn the event this information is protected by the Federal Confidentiality of Alcohol and Drug Abuse Patient Records regulations: The Federal rules restrict any use of the information to criminally investigate or prosecute any alcohol or drug abuse patient.[facility] HospitalIn the event this information is protected by the Federal Confidentiality of Alcohol and Drug Abuse Patient Records regulations: The Federal rules restrict any use of the information to criminally investigate or prosecute any alcohol or drug abuse patient.[facility] HospitalIn the event this information is protected by the Federal Confidentiality of Alcohol and Drug Abuse Patient Records regulations: The Federal rules restrict any use of the information to criminally investigate or prosecute any alcohol or drug abuse patient.[facility] HospitalIn the event this information is protected by the Federal Confidentiality of Alcohol and Drug Abuse Patient Records regulations: The Federal rules restrict any use of the information to criminally investigate or prosecute any alcohol or drug abuse patient.[facility] HospitalIn the event this information is protected by the Federal Confidentiality of Alcohol and Drug Abuse Patient Records regulations: The Federal rules restrict any use of the information to criminally investigate or prosecute any alcohol or drug abuse patient.[facility] HospitalIn the event this information is protected by the Federal Confidentiality of Alcohol and Drug Abuse Patient Records regulations: The Federal rules restrict any use of the information to criminally investigate or prosecute any alcohol or drug abuse patient.[facility] HospitalIn the event this information is protected by the Federal Confidentiality of Alcohol and Drug Abuse Patient Records regulations: The Federal rules restrict any use of the information to criminally investigate or prosecute any alcohol or drug abuse patient.[facility] HospitalIn the event this information is protected by the Federal Confidentiality of Alcohol and Drug Abuse Patient Records regulations: The Federal rules restrict any use of the information to criminally investigate or prosecute any alcohol or drug abuse patient.[facility] HospitalIn the event this information is protected by the Federal Confidentiality of Alcohol and Drug Abuse Patient Records regulations: The Federal rules restrict any use of the information to criminally investigate or prosecute any alcohol or drug abuse patient.[facility] HospitalIn the event this information is protected by the Federal Confidentiality of Alcohol and Drug Abuse Patient Records regulations: The Federal rules restrict any use of the information to criminally investigate or prosecute any alcohol or drug abuse patient.[facility] HospitalIn the event this information is protected by the Federal Confidentiality of Alcohol and Drug Abuse Patient Records regulations: The Federal rules restrict any use of the information to criminally investigate or prosecute any alcohol or drug abuse patient.[facility] HospitalIn the event this information is protected by the Federal Confidentiality of Alcohol and Drug Abuse Patient Records regulations: The Federal rules restrict any use of the information to criminally investigate or prosecute any alcohol or drug abuse patient.[facility] HospitalIn the event this information is protected by the Federal Confidentiality of Alcohol and Drug Abuse Patient Records regulations: The Federal rules restrict any use of the information to criminally investigate or prosecute any alcohol or drug abuse patient.[facility] HospitalIn the event this information is protected by the Federal Confidentiality of Alcohol and Drug Abuse Patient Records regulations: The Federal rules restrict any use of the information to criminally investigate or prosecute any alcohol or drug abuse patient.[facility] HospitalIn the event this information is protected by the Federal Confidentiality of Alcohol and Drug Abuse Patient Records regulations: The Federal rules restrict any use of the information to criminally investigate or prosecute any alcohol or drug abuse patient.[facility] HospitalIn the event this information is protected by the Federal Confidentiality of Alcohol and Drug Abuse Patient Records regulations: The Federal rules restrict any use of the information to criminally investigate or prosecute any alcohol or drug abuse patient.[facility] HospitalIn the event this information is protected by the Federal Confidentiality of Alcohol and Drug Abuse Patient Records regulations: The Federal rules restrict any use of the information to criminally investigate or prosecute any alcohol or drug abuse patient.[facility] HospitalIn the event this information is protected by the Federal Confidentiality of Alcohol and Drug Abuse Patient Records regulations: The Federal rules restrict any use of the information to criminally investigate or prosecute any alcohol or drug abuse patient.[facility] HospitalIn the event this information is protected by the Federal Confidentiality of Alcohol and Drug Abuse Patient Records regulations: The Federal rules restrict any use of the information to criminally investigate or prosecute any alcohol or drug abuse patient.[facility] HospitalIn the event this information is protected by the Federal Confidentiality of Alcohol and Drug Abuse Patient Records regulations: The Federal rules restrict any use of the information to criminally investigate or prosecute any alcohol or drug abuse patient.[facility] HospitalIn the event this information is protected by the Federal Confidentiality of Alcohol and Drug Abuse Patient Records regulations: The Federal rules restrict any use of the information to criminally investigate or prosecute any alcohol or drug abuse patient.[facility] HospitalIn the event this information is protected by the Federal Confidentiality of Alcohol and Drug Abuse Patient Records regulations: The Federal rules restrict any use of the information to criminally investigate or prosecute any alcohol or drug abuse patient.[facility] Reason for Visit (unrecogniz ed section and [...] medications and diabetic supplies be sent to [facility] in [place]. Reason Onset Date Comments Refill Request 07/24/2022 Reason Comments Consult Colonoscopy Reason Onset Date Comments Refill Request 07/05/2022 Refill Request 08/16/2022 Reason Onset Date Comments Refill Request 08/27/2022 Reason Onset Date Comments Refill Request 10/04/2022 Reason Comments Prescription Clarification Reason Comments Results No answer and VM not set up. Arrows[employer] message sent to request patient call in [...] Care 01/02/2023 TCM initial o utreach-dc'd from [facility] 01/01/23 Reason Comments Missed Appointment Pharm[facility] visit [facility] Reason Comments Medication Request Reason Onset Date Comments Transition Of Care 01/14/2023 TCM follow-up readmitted to hospital Reason Onset Date Comments Transition Of Care 01/17/2023 TCM Pharmacy- Hospital discharge 01/16/23 Reason Comments Shelter Reason Onset Date Comments Transition Of Care 01/28/2023 TCM follow up Reason Onset Date Comments Refill Request 02/03/2023 Reason Comments [facility] PT Order Request Reason Comments Home Care MD to follow Reason Comments Hospital F/U Reason Comments Fax last Office Vist Notes Reason Onset Date Comments Transition Of Care 02/21/2023 TCM Pharmacy- Hospital discharge 02/20/23 Reason Onset Date Comments Transition Of Care 02/21/[address] [facility] Hospital Discharge 02/20/23 Specialty Diagnoses / Procedures Referred By Aarti coulter Referred To Contact [facility] Home Care [address] [place] [id number] Referral ID Status Reason Start Date Expiration Date Visits Re quested Visits Authorized [id number] 1 Reason Comments Home Care Confirmation Call Reason Comments Home Care Reason Comments Home Care Request for home a [facility] aide referral. Reason Comments Hospital F/U [facility] dx: pneumonia Di scharged on 03/05/2023ompleted prednisone Referral ID Status Reason Start Date Expiration Date Visits Re quested Visits Authorized [id number] 1 1 Reason Comments Stage II pressure [...] Care 06/06/2023 TCM Initial O utreach: OON DC 05/31/23, KERRY Reason Onset Date Comments Opened In Error 06/25/2023 Reason Comments Insurance Authorization Test strips/lanc ets Reason Onset Date Comments Refill Request 06/17/2023 Reason Onset Date Comments Refill Request 07/23/2023 Reason Onset Date Comments Refill Request 07/29/2023 Reason Comments Opened In Error Reason Onset Date Comments Refill Request 08/01/2023 Reason Comments Home [facility] care change of insurance Care Teams (unrecognized sec tion and content) Bail Agent Relationship Specialty Start Date End Date Panfilo Oreilly MD [address] [place], [place] [id number] PCP - General Family Practice 02/12/17 Shreya Mccray Endocrinology 07/23/18 [place] Dumont [address] [place] [address] Specialty Art Conservator Pulmonary Disease 12/23/18 Brandee Cotter (Bridge Inspector) [address], [place] [id number] Consulting Endocrinology 11/09/19 [place] Dumont [address] [place] [address] Consulting Pulmonary Disease 11/12/19 Robert Sanchez [facility] [address] [place] [address] Pharmacist Pharmacy 09/06/21 [facility] 12/17/17 [facility] Wound Center 07/23/18 [facility] 06/20/20 Bail Agent Relationship Specialty Start Date End Date Panfilo Oreilly MD [address] [place] [address] PCP - General Family Practice 02/12/17 Shreya Mccray Endocrinology 07/23/18 [place] Dumont [address] [place] [address] Specialty Art Conservator Pulmonary Disease 12/23/18 Brandee Cotter (Bridge Inspector) [address] [place] [address] Consulting Endocrinology 11/09/19 [place] Dumont [address] [place] [address] Consulting Pulmonary Disease 11/12/19 Robert Sanchez, [facility] [address] [place] [address] Pharmacist Pharmacy 09/06/21 [facility] 12/17/17 [facility] Wound Center 07/23/18 [facility] [place] [facility] 06/20/20 Bail Agent Relationship Specialty Start Date End Date Panfilo Oreilly MD [address] [place] [address] PCP - General Family Practice 02/12/17 Shreya Mccray Endocrinology 07/23/18 [place] Dumont [address] [place] [address] Specialty Art Conservator Pulmonary Disease 12/23/18 Brandee Cotter (Bridge Inspector) [address] [place] [address] Consulting Endocrinology 11/09/19 [place] Dumont [address] [place] [address] Consulting Pulmonary Disease 11/12/19 [facility] [address] [facility] [place] [address] Pharmacist Pharmacy 09/06/21 [facility] 12/17/17 [facility] Wound Center 07/23/18 [facility] 06/20/20 Bail Agent Relationship Specialty Start Date End Date Panfilo Oreilly MD [address] [place] [address] PCP - General Family Practice 02/12/17 Shreya Mccray Endocrinology 07/23/18 [place] Dumont [address] [place] [address] Specialty Art Conservator Pulmonary Disease 12/23/18 Brandee Cotter (Bridge Inspector) [address] [place] [address] Consulting Endocrinology 11/09/19 [place] Dumont [address] [place] [address] Consulting Pulmonary Disease 11/12/19 Robert Sanchez, [facility] [address] [place] [address] Pharmacist Pharmacy 09/06/21 [facility] 12/17/17 [facility] Wound Center 07/23/18 [facility] 06/20/20 Bail Agent Relationship Specialty Start Date End Date Panfilo Oreilly MD [address] [place] [address] PCP - General Family Practice 02/12/17 Shreya Mccray Endocrinology 07/23/18 [place] Dumont [address] [place] [address] Specialty Art Conservator Pulmonary Disease 12/23/18 Brandee Cotter (Bridge Inspector) [address], [place] [id number] Consulting Endocrinology 11/09/19 [place] Dumont [address] [place] [address] Consulting Pulmonary Disease 11/12/19 Robert Sanchez, [facility] [address] [place] [address] Pharmacist Pharmacy 09/06/21 [facility] 12/17/17 [facility] Wound Center 07/23/18 [facility] 06/20/20 Bail Agent Relationship Specialty Start Date End Date Panfilo Oreilly MD [address] [place] [address] PCP - General Family Practice 02/12/17 Shreya Mccray Endocrinology 07/23/18 [place] Dumont [address] [place] [address] Specialty Art Conservator Pulmonary Disease 12/23/18 Brandee [place] (Bridge Inspector) [address] [place] [address] Consulting Endocrinology 11/09/19 [place] Dumont [address] [place] [address] Consulting Pulmonary Disease 11/12/19 [facility] [address] [facility] [place] [address] Pharmacist Pharmacy 09/06/21 [facility] 12/17/17 [facility] Wound Center 07/23/18 [facility] Patients 06/20/20 Bail Agent Relationship Specialty Start Date End Date Panfilo Oreilly MD [address] [place] [address] PCP - General Family Practice 02/12/17 Shreya Mccray Endocrinology 07/23/18 [place] Dumont [address] [place] [address] Specialty Art Conservator Pulmonary Disease 12/23/18 Brandee [place] (Bridge Inspector) [address] [place] [address] Consulting Endocrinology 11/09/19 [place] Dumont [address] [place] [address] Consulting Pulmonary Disease 11/12/19 Robert Sanchez, [facility] [address] [facility] [place] [address] Pharmacist Pharmacy 09/06/21 [facility] 12/17/17 [facility] Wound Center 07/23/18 [facility] 06/20/20 Bail Agent Relationship Specialty Start Date End Date Panfilo Oreilly MD [address] [facility] [place] [address] PCP - General Family Practice 02/12/17 Shreya Mccray Endocrinology 07/23/18 [place] Dumont [address] [place] [address] Specialty Art Conservator Pulmonary Disease 12/23/18 Brandee Cotter ([facility]) [address], [place] [id number] Consulting Endocrinology 11/09/19 [place] Dumont [address] [place] [address] Consulting Pulmonary Disease 11/12/19 Robert Sanchez, [facility] [address] [facility] [place] [address] Pharmacist Pharmacy 09/06/21 [facility] 12/17/17 [facility] Wound Center 07/23/18 [place] [facility] Patients 06/20/20 Bail Agent Relationship Specialty Start Date End Date Panfilo Oreilly MD [address] [facility] [place] [address] PCP - General Family Practice 02/12/17 Shreya Mccray Endocrinology 07/23/18 [place] Dumont [address] [place] [address] Specialty Art Conservator Pulmonary Disease 12/23/18 Brandee [place] (Bridge Inspector) [address], [place] [id number] Consulting Endocrinology 11/09/19 [place] Dumont [address] [place] [address] Consulting Pulmonary Disease 11/12/19 [facility] [address] [facility] [place] [address] Pharmacist Pharmacy 09/06/21 [facility] 12/17/17 [facility] Wound Center 07/23/18 [facility] Patients 06/20/20 Bail Agent Relationship Specialty Start Date End Date Panfilo Oreilly MD [address] [place] [address] PCP - General Family Practice 02/12/17 Shreya Mccray Endocrinology 07/23/18 [place] Dumont [address] [place] [address] Specialty Art Conservator Pulmonary Disease 12/23/18 Brandee Cot[place] (Bridge Inspector) [address] [place] [address] Consulting Endocrinology 11/09/19 [place] Dumont [address] [place] [address] Consulting Pulmonary Disease 11/12/19 [facility] [address] [place] [address] Pharmacist Pharmacy 09/06/21 [facility] 12/17/17 [facility] Wound Center 07/23/18 [place] [facility] 06/20/20 Bail Agent Relationship Specialty Start Date End Date Panfilo Oreilly MD [address] [facility] [place] [address] PCP - General Family Practice 02/12/17 Shreya Mccray Endocrinology 07/23/18 [place] Dumont [address] [place] [address] Specialty Art Conservator Pulmonary Disease 12/23/18 Brandee [place] (Bridge Inspector) [address], [place] [id number] Consulting Endocrinology 11/09/19 [place] Dumont [address] [place] [address] Consulting Pulmonary Disease 11/12/19 Robert Sanchez [facility] [address] [facility] [place] [address] Pharmacist Pharmacy 09/06/21 [facility] 12/17/17 [facility] Wound Center 07/23/18 [place] [facility] 06/20/20 Bail Agent Relationship Specialty Start Date End Date Panfilo Oreilly MD [address] [facility] [place] [address] PCP - General Family Practice 02/12/17 Shreya Mccray Endocrinology 07/23/18 [place] Dumont [address] [place] [address] Specialty Art Conservator Pulmonary Disease 12/23/18 Brandee [place] (Bridge Inspector) [address] [place] [address] Consulting Endocrinology 11/09/19 [place] Dumont [address] [place] [address] Consulting Pulmonary Disease 11/12/19 [facility] [address] [facility] [place] [address] Pharmacist Pharmacy 09/06/21 [facility] 12/17/17 [facility] Wound Center 07/23/18 [facility] Patients 06/20/20 Bail Agent Relationship Specialty Start Date End Date Panfilo Oreilly MD [address] [facility] [place] [address] PCP - General Family Practice 02/12/17 Shreya Mccray Endocrinology 07/23/18 [place] Dumont [address] [place] [address] Specialty Art Conservator Pulmonary Disease 12/23/18 Brandee [place] (Bridge Inspector) [address] [place] [address] Consulting Endocrinology 11/09/19 [place] Duomnt [address] [place] [address] Consulting Pulmonary Disease 11/12/19 [facility] [address] [facility] [place] [address] Pharmacist Pharmacy 09/06/21 [facility] 12/17/17 [facility] Wound Center 07/23/18 [place] [facility] Patients 06/20/20 Bail Agent Relationship Specialty Start Date End Date Panfilo Oreilly MD [address] [facility] [place] [address] PCP - General Family Practice 02/12/17 Shreya Mccray Endocrinology 07/23/18 [place] Dumont [address] [place] [address] Specialty Art Conservator Pulmonary Disease 12/23/18 Brandee [place] (Bridge Inspector) [address] [place] [address] Consulting Endocrinology 11/09/19 [place] Dumont [address] [place] [address] Consulting Pulmonary Disease 11/12/19 [facility] [address] [place] [address] Pharmacist Pharmacy 09/06/21 [facility] 12/17/17 [facility] Wound Center 07/23/18 [place] [facility] Patients 06/20/20 Bail Agent Relationship Specialty Start Date End Date Panfilo Oreilly MD [address] [place] [address] PCP - General Family Practice 02/12/17 Shreya Mccray Endocrinology 07/23/18 [place] Dumont [address] [place] [address] Specialty Art Conservator Pulmonary Disease 12/23/18 Brandee [place] (Bridge Inspector) [address] [place] [address] Consulting Endocrinology 11/09/19 [place] Dumont [address] [place] [address] Consulting Pulmonary Disease 11/12/19 Robert Sanchez, [facility] [address] [facility] [place] [address] Pharmacist Pharmacy 09/06/21 [facility] 12/17/17 [facility] Wound Center 07/23/18 [place] Patients 06/20/20 Bail Agent Relationship Specialty Start Date End Date Panfilo Oreilly MD [address] [facility] [place] [address] PCP - General Family Practice 02/12/17 Shreya Mccray Endocrinology 07/23/18 [place] Dum[place] [address] [place] [address] Specialty Art Conservator Pulmonary Disease 12/23/18 Brandee [place] (Bridge Inspector) [address], [place] [id number] Consulting Endocrinology 11/09/19 [place] Dumont [address] [place] [address] Consulting Pulmonary Disease 11/12/19 Robert Sanchez, [facility] [address] [facility] [place] [address] Pharmacist Pharmacy 09/06/21 [facility] 12/17/17 [facility] Wound Center 07/23/18 [place] [facility] 06/20/20 Bail Agent Relationship Specialty Start Date End Date Panfilo Oreilly MD [address] [place] [address] PCP - General Family Practice 02/12/17 Shreya Mccray Endocrinology 07/23/18 [place] Dumont [address] [place] [address] Specialty Art Conservator Pulmonary Disease 12/23/18 Brandee Cot[place] ([facility]) [address], [place] [id number] Consulting Endocrinology 11/09/19 [place] Dumont [address] [place] [address] Consulting Pulmonary Disease 11/12/19 [facility] [address] [place] [address] Pharmacist Pharmacy 09/06/21 [facility] 12/17/17 [facility] Wound Center 07/23/18 [place] [facility] Patients 06/20/20 Bail Agent Relationship Specialty Start Date End Date Panfilo Oreilly MD [address] [place] [address] PCP - General Family Practice 02/12/17 Shreya Mccray MD Endocrinology 07/23/18 [place] Dumont [address] [place] [address] Specialty Art Conservator Pulmonary Disease 12/23/18 Brandee [place] (Bridge Inspector) [address] [place] [address] Consulting Endocrinology 11/09/19 [place] Dumont [address] [place] [address] Consulting Pulmonary Disease 11/12/19 [facility] [address] [facility] [place] [address] Pharmacist Pharmacy 09/06/21 [facility] 12/17/17 [facility] Wound Center 07/23/18 [facility] Patients 06/20/20 Bail Agent Relationship Specialty Start Date End Date Panfilo Oreilly MD [address] [facility] [place] [address] PCP - General Family Practice 02/12/17 Shreya Mccray MD Endocrinology 07/23/18 [place] Dum[place] [address] [place] [address] Specialty Art Conservator Pulmonary Disease 12/23/18 Brandee [place] (Bridge Inspector) [address] [place] [address] Consulting Endocrinology 11/09/19 [place] [address] [place] [address] Consulting Pulmonary Disease 11/12/19 Robert Sanchez [facility] [address] [facility] [place] [address] Pharmacist Pharmacy 09/06/21 [facility] 12/17/17 [facility] Wound Center 07/23/18 [place] [facility] Patients 06/20/20 Bail Agent Relationship Specialty Start Date End Date Panfilo Oreilly MD [address] [facility] [place] [address] PCP - General Family Practice 02/12/17 Shreya Mccray MD Endocrinology 07/23/18 [place] Dum[place] [address] [place] [address] Specialty Art Conservator Pulmonary Disease 12/23/18 Brandee [place] (Bridge Inspector) [address] [place] [address] Consulting Endocrinology 11/09/19 [place] Dum[place] [address] [place] [address] Consulting Pulmonary Disease 11/12/19 [facility] [address] [facility] [place] [address] Pharmacist Pharmacy 09/06/21 [facility] 12/17/17 [facility] Wound Center 07/23/18 [place] [facility] 06/20/20 Bail Agent Relationship Specialty Start Date End Date Panfilo Oreilly MD [address] [facility] [place] [address] PCP - General Family Practice 02/12/17 Shreya Mccray MD Endocrinology 07/23/18 [place] Dumont [address] [place] [address] Specialty Art Conservator Pulmonary Disease 12/23/18 Brandee [place] (Bridge Inspector) [address] [place] [address] Consulting Endocrinology 11/09/19 [place] Dum[place] [address] [place] [address] Consulting Pulmonary Disease 11/12/19 [facility] [address] [place] [address] Pharmacist Pharmacy 09/06/21 [facility] 12/17/17 [facility] Wound Center 07/23/18 [facility] Patients 06/20/20 Bail Agent Relationship Specialty Start Date End Date Panfilo Oreilly MD [address] [facility] [place] [address] PCP - General Family Practice 02/12/17 Shreya Mccray MD Endocrinology 07/23/18 [place] Dumont [address] [place] [address] Specialty Art Conservator Pulmonary Disease 12/23/18 Brandee [place] (Bridge Inspector) [address] [place] [address] Consulting Endocrinology 11/09/19 [place] Dumont [address] [place] [address] Consulting Pulmonary Disease 11/12/19 [facility] [address] [facility] [place] [address] Pharmacist Pharmacy 09/06/21 [facility] 12/17/17 [facility] Wound Center 07/23/18 [place] [facility] Patients 06/20/20 Bail Agent Relationship Specialty Start Date End Date Panfilo Oreilly MD [address] [facility] [place] [address] PCP - General Family Practice 02/12/17 Shreya Mccray MD Endocrinology 07/23/18 [place] [address] [place] [address] Specialty Art Conservator Pulmonary Disease 12/23/18 Brandee [place] (Bridge Inspector) [address] [place] [address] Consulting Endocrinology 11/09/19 [place] Dum[place] [address] [place] [address] Consulting Pulmonary Disease 11/12/19 Robert Sanchez [facility] [address] [facility] [place] [address] Pharmacist Pharmacy 09/06/21 [facility] 12/17/17 [facility] Wound Center 07/23/18 [place] [facility] 06/20/20 Bail Agent Relationship Specialty Start Date End Date Panfilo Oreilly MD [address] [place] [address] PCP - General Family Practice 02/12/17 Shreya Mccray MD Endocrinology 07/23/18 [place] Dumont [address] [place] [address] Specialty Art Conservator Pulmonary Disease 12/23/18 Brandee [place] (Bridge Inspector) [address] [place] [address] Consulting Endocrinology 11/09/19 [place] Dumont [address] [place] [address] Consulting Pulmonary Disease 11/12/19 [facility] [address] [facility] [place] [address] Pharmacist Pharmacy 09/06/21 [facility] 12/17/17 [facility] Wound Center 07/23/18 [place] [facility] 06/20/20 Bail Agent Relationship Specialty Start Date End Date Panfilo Oreilly MD [address] [facility] [place] [address] PCP - General Family Practice 02/12/17 Shreya Mccray MD Endocrinology 07/23/18 [place] Dumont [address] [place] [address] Specialty Art Conservator Pulmonary Disease 12/23/18 Brandee [place] (Bridge Inspector) [address] [place] [address] Consulting Endocrinology 11/09/19 [place] Dumont [address] [place] [address] Consulting Pulmonary Disease 11/12/19 Robert Sanchez, [facility] [address] [facility] [place] [address] Pharmacist Pharmacy 09/06/21 [facility] 12/17/17 [facility] Wound Center 07/23/18 [place] [facility] 06/20/20 Bail Agent Relationship Specialty Start Date End Date Panfilo Oreilly MD [address] [place] [address] PCP - General Family Medicine 02/12/17 Shreya Mccray MD Endocrinology 07/23/18 [place] Dumont [address] [place] [address] Specialty Art Conservator Pulmonary Disease 12/23/18 Brandee [place] (Bridge Inspector) [facility] [address] [place], [place] [id number] Consulting Endocrinology 11/09/19 [place] Dumont [address] [place] [address] Consulting Pulmonary Disease 11/12/19 Robert Sanchez, [facility] [address] [facility] [place] [address] Pharmacist Pharmacy 09/06/21 [facility] 12/17/17 [facility] Wound Center 07/23/18 [place] [facility] Patients 06/20/20 Bail Agent Relationship Specialty Start Date End Date Panfilo Oreilly MD [address] [place], [place] [address] PCP - General Family Medicine 02/12/17 Shreya Mccray MD Endocrinology 07/23/18 [place] Dumont [address] [place] [address] Specialty Art Conservator Pulmonary Disease 12/23/18 Brandee [place] (Bridge Inspector) [address] [place] [address] Consulting Endocrinology 11/09/19 [place] Dumont [address] [place] [address] Consulting Pulmonary Disease 11/12/19 [facility] [address] [place] [address] Pharmacist Pharmacy 09/06/21 [facility] 12/17/17 [facility] Wound Center 07/23/18 [facility] Patients 06/20/20 Bail Agent Relationship Specialty Start Date End Date Panfilo Oreilly MD [address] [place], [place] [id number] PCP - General Family Medicine 02/12/17 Shreya Mccray MD Endocrinology 07/23/18 [place] Dumont [address] [place] [address] Specialty Art Conservator Pulmonary Disease 12/23/18 Brandee [place] (Bridge Inspector) [address] [place] [address] Consulting Endocrinology 11/09/19 [place] Dumont [address] [place] [address] Consulting Pulmonary Disease 11/12/19 [facility] [address] [facility] [place] [address] Pharmacist Pharmacy 09/06/21 [facility] 12/17/17 [facility] Wound Center 07/23/18 [place] [facility] Patients 06/20/20 Bail Agent Relationship Specialty Start Date End Date Panfilo Oreilly MD [address] [facility] [place] [address] PCP - General Family Medicine 02/12/17 Shreya Mccray MD Endocrinology 07/23/18 [place] [address] [place] [address] Specialty Art Conservator Pulmonary Disease 12/23/18 Brandee [place] (Bridge Inspector) [address] [place] [address] Consulting Endocrinology 11/09/19 [place] [address] [place] [address] Consulting Pulmonary Disease 11/12/19 [facility] [address] [facility] [place] [address] Pharmacist Pharmacy 09/06/21 [facility] 12/17/17 [facility] Wound Center 07/23/18 [place] [facility] Patients 06/20/20 Bail Agent Relationship Specialty Start Date End Date Panfilo Oreilly MD [address] [facility] [place] [address] PCP - General Family Medicine 02/12/17 Shreya Mccray MD Endocrinology 07/23/18 [place] [address] [place] [address] Specialty Art Conservator Pulmonary Disease 12/23/18 Brandee [place] (Bridge Inspector) [address] [place] [address] Consulting Endocrinology 11/09/19 [place] Dum[place] [address] [place] [address] Consulting Pulmonary Disease 11/12/19 Robert Sanchez [facility] [address] [facility] [place] [address] Pharmacist Pharmacy 09/06/21 [facility] 12/17/17 [facility] Wound Center 07/23/18 [place] Patients 06/20/20 Bail Agent Relationship Specialty Start Date End Date Panfilo Oreilly MD [address] [facility] [place] [address] PCP - General Family Medicine 02/12/17 Shreya Mccray MD [address] [facility] [place] [address] Endocrinology 07/23/18 [place] Dumont [address] [place] [address] Specialty Art Conservator Pulmonary Disease 12/23/18 Brandee [place] (Bridge Inspector) [address] [place] [address] Consulting Endocrinology 11/09/19 [place] Dumont [address] [place] [address] Consulting Pulmonary Disease 11/12/19 [facility] [address] [place] [address] Pharmacist Pharmacy 09/06/21 [facility] 12/17/17 [facility] Wound Center 07/23/18 [facility] Patients 06/20/20 Bail Agent Relationship Specialty Start Date End Date Panfilo Oreilly MD [address] [place] [address] PCP - General Family Medicine 02/12/17 Shreya Mccray MD [address] [place] [address] Endocrinology 07/23/18 [place] Dumont [address] [place] [address] Specialty Art Conservator Pulmonary Disease 12/23/18 Brandee [place] (Bridge Inspector) [address] [place] [address] Consulting Endocrinology 11/09/19 [place] Dumont [address] [place] [address] Consulting Pulmonary Disease 11/12/19 [facility] [address] [facility] [place] [address] Pharmacist Pharmacy 09/06/21 [facility] 12/17/17 [facility] Wound Center 07/23/18 [place] [facility] Patients 06/20/20 Bail Agent Relationship Specialty Start Date End Date Panfilo Oreilly MD [address] [place] [address] PCP - General Family Medicine 02/12/17 Shreya Mccray MD [address] [facility] [place] [address] Endocrinology 07/23/18 [place] Dumont [address] [place] [address] Specialty Art Conservator Pulmonary Disease 12/23/18 Brandee [place] (Bridge Inspector) [address], [place] [id number] Consulting Endocrinology 11/09/19 [place] Dumont [address] [place] [address] Consulting Pulmonary Disease 11/12/19 Robert Sanchez [facility] [address] [facility] [place] [address] Pharmacist Pharmacy 09/06/21 [facility] 12/17/17 [facility] Wound Center 07/23/18 [place] [facility] Patients 06/20/20 Bail Agent Relationship Specialty Start Date End Date Panfilo Oreilly MD [address] [facility] [place] [address] PCP - General Family Medicine 02/12/17 Shreya Mccray MD [address] [facility] [place] [address] Endocrinology 07/23/18 [place] Dumont [address] [place] [address] Specialty Art Conservator Pulmonary Disease 12/23/18 Brandee [place] (Bridge Inspector) [address] [place] [address] Consulting Endocrinology 11/09/19 [place] Dumont [address] [place] [address] Consulting Pulmonary Disease 11/12/19 [facility] [address] [facility] [place] [address] Pharmacist Pharmacy 09/06/21 [facility] 12/17/17 [facility] Wound Center 07/23/18 [place] Patients 06/20/20 Bail Agent Relationship Specialty Start Date End Date Panfilo Oreilly MD [address] [facility] [place] [address] PCP - General Family Medicine 02/12/17 Shreya Mccray MD [address] [facility] [place] [address] Endocrinology 07/23/18 [place] [address] [address] Specialty Art Conservator Pulmonary Disease 12/23/18 Brandee Cot[place] (Bridge Inspector) [address] [place] [address] Consulting Endocrinology 11/09/19 [place] [address] [place] [address] Consulting Pulmonary Disease 11/12/19 [facility] [address] [facility] [place] [address] Pharmacist Pharmacy 09/06/21 [facility] 12/17/17 [facility] Wound Center 07/23/18 [place] [facility] Patients 06/20/20 Bail Agent Relationship Specialty Start Date End Date Panfilo Oreilly MD [address] [facility] [place] [address] PCP - General Family Medicine 02/12/17 Shreya Mccray MD [address] [facility] [place] [address] Endocrinology 07/23/18 [place] Dumont [address] [place] [address] Specialty Art Conservator Pulmonary Disease 12/23/18 Brandee [place] (Bridge Inspector) [address] [place] [address] Consulting Endocrinology 11/09/19 [place] [address] [place] [address] Consulting Pulmonary Disease 11/12/19 [facility] [address] [facility] [place] [address] Pharmacist Pharmacy 09/06/21 [facility] 12/17/17 [facility] Wound Center 07/23/18 [place] [facility] Patients 06/20/20 Bail Agent Relationship Specialty Start Date End Date Panfilo Oreilly MD [address] [place] [address] PCP - General Family Medicine 02/12/17 Shreya Mccray MD [address] [facility] [place] [address] Endocrinology 07/23/18 [place] Dumont [address] [place] [address] Specialty Art Conservator Pulmonary Disease 12/23/18 Brandee [place] (Bridge Inspector) [address] [place] [address] Consulting Endocrinology 11/09/19 [place] [address] [place] [address] Consulting Pulmonary Disease 11/12/19 Robert Sanchez [facility] [address] [place] [address] Pharmacist Pharmacy 09/06/21 [facility] 12/17/17 [facility] Wound Center 07/23/18 [place] [facility] Patients 06/20/20 Bail Agent Relationship Specialty Start Date End Date Panfilo Oreilly MD [address] [place] [address] PCP - General Family Medicine 02/12/17 Shreya Mccray MD [address] [place] [address] Endocrinology 07/23/18 [place] [address] [place] [address] Specialty Art Conservator Pulmonary Disease 12/23/18 Brandee [place] (Bridge Inspector) [address] [place] [address] Consulting Endocrinology 11/09/19 [place] [address] [place] [address] Consulting Pulmonary Disease 11/12/19 Robert Sanchez, [facility] [address] [place] [address] Pharmacist Pharmacy 09/06/21 [facility] 12/17/17 [facility] Wound Center 07/23/18 [place] [facility] 06/20/20 Team Status: Active [...] MD Attending Provider, Emergency Provi mame Active Bail Agent Relationship Specialty Start Date End Date Panfilo Oreilly MD [address] [place] [address] PCP - General Family Medicine 02/12/17 Shreya Mccray MD [address] [place] [address] Endocrinology 07/23/18 [place]ont [address] [place] [address] Specialty Art Conservator Pulmonary Disease 12/23/18 Brandee [place] (Bridge Inspector) [address] [place] [address] Consulting Endocrinology 11/09/19 [place] Dumont [address] [place] [address] Consulting Pulmonary Disease 11/12/19 [place] [address] [facility] [place] [address] Pharmacist Pharmacy 09/06/21 [facility] 12/17/17 [facility] Wound Center 07/23/18 [place] [facility] Patients 06/20/20 Bail Agent Relationship Specialty Start Date End Date Panfilo Oreilly MD [address] [place] [address] PCP - General Family Medicine 02/12/17 Shreya Mccray MD [address] [place] [address] Endocrinology 07/23/18 [place]ont [address] [place] [address] Specialty Art Conservator Pulmonary Disease 12/23/18 Brandee [place] (Bridge Inspector) [facility] [place], [place] [id number] Consulting Endocrinology 11/09/19 [place] Dumont [address] [place] [address] Consulting Pulmonary Disease 11/12/19 [place] [address] [facility] [place] [address] Pharmacist Pharmacy 09/06/21 [facility] 12/17/17 [facility] Wound Center 07/23/18 [place] [facility] 06/20/20 Bail Agent Relationship Specialty Start Date End Date Panfilo Oreilly MD [address] [place] [address] PCP - General Family Medicine 02/12/17 Shreya Mccray MD [address] [facility] [place] [address] Endocrinology 07/23/18 [place] Dumont [address] [place] [address] Specialty Art Conservator Pulmonary Disease 12/23/18 Brandee Cotter (Bridge Inspector) [address] [place] [address] Consulting Endocrinology 11/09/19 [place] Dumont [address] [place] [address] Consulting Pulmonary Disease 11/12/19 Robert Sanchez [facility] [address] [place] [address] Pharmacist Pharmacy 09/06/21 [facility] 12/17/17 [facility] Wound Center 07/23/18 [place] [facility] 06/20/20 Bail Agent Relationship Specialty Start Date End Date Panfilo Oreilly MD [address] [place] [address] PCP - General Family Medicine 02/12/17 Shreya Mccray MD [address] [place] [address] Endocrinology 07/23/18 [place] Dumont [address] [place] [address] Specialty Art Conservator Pulmonary Disease 12/23/18 Brandee Cotter (Bridge Inspector) [address] [place] [address] Consulting Endocrinology 11/09/19 [place] Dumont [address] [place] [address] Consulting Pulmonary Disease 11/12/19 [facility] [address] [place] [address] Pharmacist Pharmacy 09/06/21 [facility] 12/17/17 [facility] Wound Center 07/23/18 [place] [facility] 06/20/20 Bail Agent Relationship Specialty Start Date End Date Panfilo Oreilly MD [address] [place] [address] PCP - General Family Medicine 02/12/17 Shreya Mccray MD [address] [place] [address] Endocrinology 07/23/18 [place] Dumont [address] [place] [address] Specialty Art Conservator Pulmonary Disease 12/23/18 Brandee Cotter (Bridge Inspector) [address] [place] [address] Consulting Endocrinology 11/09/19 [place] Dumont [address] [place] [address] Consulting Pulmonary Disease 11/12/19 Robert Sanchez, [facility] [address] [place] [address] Pharmacist Pharmacy 09/06/21 [facility] [address] [place] [address] Transitional Care Pharmacist Pharmacy 01/02/23 02/01/23 Mimi Crowley, planting material remover Electric Meter Inspector 01/01/23 01/29/23 [facility] 12/17/17 [facility] Wound Center 07/23/18 [place] [facility] 06/20/20 Bail Agent Relationship Specialty Start Date End Date Panfilo Oreilly MD [address] [place], [place] [address]71 PCP - General Family Medicine 02/12/17 Shreya Mccray MD [address] [place] [address] Endocrinology 07/23/18 [place] [address] [facility] [place] [address] Specialty Art Conservator Pulmonary Disease 12/23/18 Brandee Cotter (Bridge Inspector) [address], [place] [id number] Consulting Endocrinology 11/09/19 [place] Dumont [address] [facility] [place] [address] Consulting Pulmonary Disease 11/12/19 Robert Sanchez, [facility] [address] [place] [address] Pharmacist Pharmacy 09/06/21 Brissa Kilpatrick, [facility] [address] [place], [place] [address] Transitional Care Pharmacist Pharmacy 01/02/23 02/01/23 Mimi Crowley, planting material remover Electric Meter Inspector 01/01/23 01/29/23 [facility] 12/17/17 [facility] Wound Center 07/23/18 [place] [facility] 06/20/20 Bail Agent Relationship Specialty Start Date End Date Panfilo Oreilly MD [address] [place], [place] [address]39261 PCP - General Family Medicine 02/12/17 Shreya Mccray MD [address] [place] [address] Endocrinology 07/23/18 [place] Dumont [address] [place] [address] Specialty Art Conservator Pulmonary Disease 12/23/18 Brandee Cotter ([facility]) [address], [place] [id number] Consulting Endocrinology 11/09/19 [place] [address] [place] [address] [place] [address] Consulting Pulmonary Disease 11/12/19 Robert Sanchez, [facility] [address] [place] [address] Pharmacist Pharmacy 09/06/21 Brissa Kilpatrick, [facility] [address] [place] [address] Transitional Care Pharmacist Pharmacy 01/02/23 02/01/23 Mimi Crowley, planting material remover Electric Meter Inspector 01/01/23 01/29/23 [facility] 12/17/17 [facility] Wound Center 07/23/18 [place] [facility] 06/20/20 Bail Agent Relationship Specialty Start Date End Date Panfilo Oreilly MD [address] [place] [address] PCP - General Family Medicine 02/12/17 Shreya Mccray MD [address] [place] [address] Endocrinology 07/23/18 [place] Dumont [address] [place] [address] Specialty Art Conservator Pulmonary Disease 12/23/18 Brandee Cotter (Bridge Inspector) [address], [place] [id number] Consulting Endocrinology 11/09/19 [place] Dumont [address] [place] [address] Consulting Pulmonary Disease 11/12/19 [facility] [address] [place] [address] Pharmacist Pharmacy 09/06/21 Brissa Kilpatrick, [facility] [address] [place] [address] Transitional Care Pharmacist Pharmacy 01/02/23 02/01/23 Mimi Crowley, planting material remover Electric Meter Inspector 01/01/23 01/29/23 [facility] 12/17/17 [facility] Wound Center 07/23/18 [place] [facility] 06/20/20 Team Status: Inactive Member Role Status Dates Dr. Tino Oreilly MD Primary Care Provider Acti ve Dr. Eulogio Jiang DO Emergency Provider Active Bail Agent Relationship Specialty Start Date End Date Panfilo Oreilly MD [address] [place], [place] [id number] PCP - General Family Medicine 02/12/17 Shreya Mccray MD [address] [facility] [place] [address] Endocrinology 07/23/18 [place] Dumont [address] [place] [address] Specialty Art Conservator Pulmonary Disease 12/23/18 Brandee Cotter (Bridge Inspector) [address] [place] [address] Consulting Endocrinology 11/09/19 [place] Dumont [address] [place] [address] Consulting Pulmonary Disease 11/12/19 Robert Sanchez, [facility] [address] [place] [address] Pharmacist Pharmacy 09/06/21 Brissa Kilpatrick, [facility] [address] [place] [address] Transitional Care Pharmacist Pharmacy 01/02/23 02/01/23 Mimi Crowley, planting material remover Electric Meter Inspector 01/01/23 01/29/23 [facility] 12/17/17 [facility] Wound Center 07/23/18 [place] Patients 06/20/20 Bail Agent Relationship Specialty Start Date End Date Panfilo Oreilly MD [address] [place], [place] [id number] PCP - General Family Medicine 02/12/17 Shreya Mccray MD [address] [place] [address] Endocrinology 07/23/18 [place] Dum[place] [address] [place] [address] Specialty Art Conservator Pulmonary Disease 12/23/18 Brandee Cotter (Bridge Inspector) [address], [place] [id number] Consulting Endocrinology 11/09/19 [place] Dumont [address] [place] [address] Consulting Pulmonary Disease 11/12/19 Robert Sanchez, [facility] [address] [place] [address] Pharmacist Pharmacy 09/06/21 Brissa Kilpatrick, [facility] [address] [place] [address] Transitional Care Pharmacist Pharmacy 01/02/23 02/01/23 [facility] 12/17/17 [facility] Wound Center 07/23/18 [place] [facility] 06/20/20 Bail Agent Relationship Specialty Start Date End Date Panfilo Oreilly MD [address] [place] [address] PCP - General Family Medicine 02/12/17 Shreya Mccray MD [address] [place] [address] Endocrinology 07/23/18 [place] Dumont [address] [place] [address] Specialty Art Conservator Pulmonary Disease 12/23/18 Brandee Cotter (Bridge Inspector) [address], [place] [id number] Consulting Endocrinology 11/09/19 [place] Dumont [address] [place] [address] Consulting Pulmonary Disease 11/12/19 Robert Sanchez, [facility] [address] [facility] [place] [address] Pharmacist Pharmacy 09/06/21 Brissa Kilpatrick, [facility] [address] [place], [place] 19[address]95 Transitional Care Pharmacist Pharmacy 01/02/23 02/01/23 [facility] 12/17/17 [facility] Wound Center 07/23/18 [facility] Patients 06/20/20 Bail Agent Relationship Specialty Start Date End Date Panfilo Oreilly MD [address] [place] [address] PCP - General Family Medicine 02/12/17 Shreya Mccray MD [address] [place] [address] Endocrinology 07/23/18 [place] Dumont [address] [place] [address] Specialty Art Conservator Pulmonary Disease 12/23/18 Brandee Cotter (Bridge Inspector) [address] [place] [address] Consulting Endocrinology 11/09/19 [place] Dumont [address] [place] [address] Consulting Pulmonary Disease 11/12/19 Robert Sanchez, [facility] [address] [place] [address] Pharmacist Pharmacy 09/06/21 Brissa Kilpatrick, [facility] [address] [place] [address] Transitional Care Pharmacist Pharmacy 01/02/23 02/01/23 Mimi Crowley, planting material remover Electric Meter Inspector 01/01/23 01/13/23 [facility] 12/17/17 [facility] Wound Center 07/23/18 [place] Patients 06/20/20 Bail Agent Relationship Specialty Start Date End Date Panfilo Oreilly MD [address] [place], [place] [id number] PCP - General Family Medicine 02/12/17 Shreya Mccray MD [address] [place], [place] 123281 Endocrinology 07/23/18 [place] Dumont [address] [place] [address] Specialty Art Conservator Pulmonary Disease 12/23/18 Brandee Cotter (Bridge Inspector) [address] [place] [address] Consulting Endocrinology 11/09/19 [place] Dumont [address] [place] [address] Consulting Pulmonary Disease 11/12/19 Robert Sanchez, [facility] [address] [place] [address] Pharmacist Pharmacy 09/06/21 Brissa Kilpatrick [facility] [address] [place], [place] 258[address] Transitional Care Pharmacist Pharmacy 01/02/23 02/01/23 Raquel Payne, planting material remover Electric Meter Inspector 01/17/23 02/13/23 [facility] 12/17/17 [facility] Wound Center 07/23/18 [place] [facility] 06/20/20 Bail Agent Relationship Specialty Start Date End Date Panfilo Oreilly MD [address] [place], [place] [address]78641 PCP - General Family Medicine 02/12/17 Shreya Mccray MD [address] [place], [place] [address] Endocrinology 07/23/18 [place] Dumont [address] [place] [address] Specialty Art Conservator Pulmonary Disease 12/23/18 Brandee Cotter (Bridge Inspector) [address] [place] [address] Consulting Endocrinology 11/09/19 [place] Dumont [address] [place] [address] Consulting Pulmonary Disease 11/12/19 Robert Sanchez, [facility] [address] [place] [address] Pharmacist Pharmacy 09/06/21 Brissa Kilpatrick, [facility] [address] [place] [address] Transitional Care Pharmacist Pharmacy 01/02/23 02/01/23 Raquel Payne, planting material remover Electric Meter Inspector 01/17/23 02/13/23 [facility] 12/17/17 [facility] Wound Center 07/23/18 [place] [facility] 06/20/20 Bail Agent Relationship Specialty Start Date End Date Panfilo Oreilly MD [address] [place] [address] PCP - General Family Medicine 02/12/17 Shreya Mccray MD [address] [place] [address] Endocrinology 07/23/18 [place]ont [address] [place] [address] Specialty Art Conservator Pulmonary Disease 12/23/18 Brandee Cotter ([facility]) [address], [place] [id number] Consulting Endocrinology 11/09/19 [place] Dumont [address] [facility] [place] [address] Consulting Pulmonary Disease 11/12/19 Robert Sanchez, [facility] [address] [place] [address] Pharmacist Pharmacy 09/06/21 Brissa Kilpatrick, [facility] [address] [place] [address] Transitional Care Pharmacist Pharmacy 01/02/23 02/01/23 Raquel Payne, planting material remover Electric Meter Inspector 01/17/23 02/13/23 [facility] 12/17/17 [facility] Wound Center 07/23/18 [place] [facility] 06/20/20 Bail Agent Relationship Specialty Start Date End Date Panfilo Oreilly MD [address] [place], [place] [address] PCP - General Family Medicine 02/12/17 Shreya Mccray MD [address] [facility] [place] [address] Endocrinology 07/23/18 [place] Dumont [address] [place] [address] Specialty Art Conservator Pulmonary Disease 12/23/18 Brandee Cotter (Bridge Inspector) [address] [place] [address] Consulting Endocrinology 11/09/19 [place] Dumont [address] [place] [address] Consulting Pulmonary Disease 11/12/19 Robert Sanchez, [facility] [address] [place] [address] Pharmacist Pharmacy 09/06/21 Brissa Kilpatrick, [facility] [address] [place] [address] Transitional Care Pharmacist Pharmacy 01/02/23 02/01/23 Raquel Payne, planting material remover Electric Meter Inspector 01/17/23 02/13/23 [facility] 12/17/17 [facility] Wound Center 07/23/18 [place] [facility] 06/20/20 Bail Agent Relationship Specialty Start Date End Date Panfilo Oreilly MD [address] [place] [address] PCP - General Family Medicine 02/12/17 Shreya Mccray MD [address] [place] [address] Endocrinology 07/23/18 [place] Dumont [address] [place] [address] Specialty Art Conservator Pulmonary Disease 12/23/18 Brandee Cotter (Bridge Inspector) [address], [place] [id number] Consulting Endocrinology 11/09/19 [place] Dumont [address] [place] [address] Consulting Pulmonary Disease 11/12/19 Robert Sanchez, [facility] [address] [place] [address] Pharmacist Pharmacy 09/06/21 Brissa Kilpatrick, [facility] [address] [place], [place] 98[address]995 Transitional Care Pharmacist Pharmacy 01/02/23 02/01/23 Raquel Payne, planting material remover Electric Meter Inspector 01/17/23 02/13/23 [facility] 12/17/17 [facility] Wound Center 07/23/18 [place] Patients 06/20/20 Bail Agent Relationship Specialty Start Date End Date Panfilo Oreilly MD [address] [place] [address] PCP - General Family Medicine 02/12/17 Shreya Mccray MD [address] [place] [address] Endocrinology 07/23/18 [place] Dumont [address] [place] [address] Specialty Art Conservator Pulmonary Disease 12/23/18 Brandee Cotter (Bridge Inspector) [address], [place] [id number] Consulting Endocrinology 11/09/19 [place] Dumont [address] [place] [address] Consulting Pulmonary Disease 11/12/19 [facility] [address] [place] [address] Pharmacist Pharmacy 09/06/21 Raquel Payne, planting material remover Electric Meter Inspector 01/17/23 02/13/23 [facility] 12/17/17 [facility] Wound Center 07/23/18 [facility] Patients 06/20/20 Bail Agent Relationship Specialty Start Date End Date Panfilo Oreilly MD [address] [place] [address] PCP - General Family Medicine 02/12/17 Shreya Mccray MD [address] [place] [address] Endocrinology 07/23/18 [place] Dumont [address] [place] [address] Specialty Art Conservator Pulmonary Disease 12/23/18 Brandee Cotter (Bridge Inspector) [address] [place] [address] Consulting Endocrinology 11/09/19 [place] Dumont [address] [place] [address] Consulting Pulmonary Disease 11/12/19 [facility] [address] [facility] [place] [address] Pharmacist Pharmacy 09/06/21 Raquel Payne, planting material remover Electric Meter Inspector 2/17/23 3/16/23 [facility] 12/17/17 [facility] Wound Center 07/23/18 [place] [facility] 06/20/20 Team Status: Inactive Member Role Status Dates Dr. Tino Oreilly MD Primary Care Provider Acti ve Dr. Eulogio Jiang DO Attending Provider, Emergency Pr ovider Active Team Status: Inactive Member Role Status Dates Dr. Tino Oreilly MD Primary Care Provider Acti ve Dr. Deejay Ornelas MD Emergency Provider Active Bail Agent Relationship Specialty Start Date End Date Panfilo Oreilly MD [address] [place], [place] 0667[address] PCP - General Family Medicine 02/12/17 Shreya Mccray MD [address] [place] [address] Endocrinology 07/23/18 [place] [address] [place] [address] Specialty Art Conservator Pulmonary Disease 12/23/18 Brandee Cotter (Bridge Inspector) [address] [place] [address] Consulting Endocrinology 11/09/19 [place] Dumont [address] [place] [address] Consulting Pulmonary Disease 11/12/19 Robert Sanchez, [facility] [address] [place] [address] Pharmacist Pharmacy 09/06/21 Raquel Payne RN Primary Care Electric Meter Inspector 01/17/23 02/13/23 Dianne Garcia APRN.OIL TANK CAR CLEANER [address] [place] [address]redo [place], [place] [id number] Referring General Surgery 02/20/23 [facility] 12/17/17 [facility] Wound Center 07/23/18 [place] [facility] 06/20/20 Bail Agent Relationship Specialty Start Date End Date Panfilo Oreilly MD [address] [place] [address] PCP - General Family Medicine 02/12/17 Shreya Mccray MD [address] [place] [address] Endocrinology 07/23/18 [place] [address] [place] [address] Specialty Art Conservator Pulmonary Disease 12/23/18 Brandee Cotter (Bridge Inspector) [address] [place] [address] Consulting Endocrinology 11/09/19 [place]ont [address] [facility] [place] [address] Consulting Pulmonary Disease 11/12/19 Robert Sanchez, [facility] [address] [place] [address] Pharmacist Pharmacy 09/06/21 Dianne Garcia, ROSELYN.OIL TANK CAR CLEANER [address] [place] [address] Referring General Surgery 02/20/23 Annie Borges, [facility] [address] [place] [address] Transitional Care Pharmacist Pharmacy 02/21/23 03/22/23 Carlos Cline, RN [address] [place] [address] Primary Care Electric Meter Inspector Internal Medicine 02/21/23 03/23/23 Panfilo Oreilly MD [address] [place], [place] [address]57241 Home Care Provider Family Medicine 02/21/23 [facility] 12/17/17 [facility] Wound Center 07/23/18 [place] [facility] 06/20/20 Bail Agent Relationship Specialty Start Date End Date Panflio Oreilly MD [address] [place] [address] PCP - General Family Medicine 02/12/17 Shreya Mccray MD [address] [place] [address] Endocrinology 07/23/18 [place] [address] [place] [address] Specialty Art Conservator Pulmonary Disease 12/23/18 Brandee Cotter (Bridge Inspector) [address], [place] [id number] Consulting Endocrinology 11/09/19 [place]ont [address] [place] [address] Consulting Pulmonary Disease 11/12/19 Robert Sanchez [facility] [address] [place] [address] Pharmacist Pharmacy 09/06/21 [facility] 12/17/17 [facility] Wound Center 07/23/18 [place] [facility] 06/20/20 Bail Agent Relationship Specialty Start Date End Date Panfilo Oreilly MD [address] [place] [address] PCP - General Family Medicine 02/12/17 Shreya Mccray MD [address] [place] [address] Endocrinology 07/23/18 [place] Dumont [address] [place] [address] Specialty Art Conservator Pulmonary Disease 12/23/18 Brandee Cotter (Bridge Inspector) [address], [place] [id number] Consulting Endocrinology 11/09/19 [place]ont [address] [facility] [place] [address] Consulting Pulmonary Disease 11/12/19 Robert Sanchez, [facility] [address] [place] [address] Pharmacist Pharmacy 09/06/21 Dianne Garcia, SAUSAGE STRINGER.OIL TANK CAR CLEANER [address] [place] [address] Referring General Surgery 02/20/23 [facility] [address] [place], [place] 5563895 Transitional Care Pharmacist Pharmacy 02/21/23 03/22/23 Carlos Cline, LORENZO [address] [place] [address] Primary Care Electric Meter Inspector Internal Medicine 02/21/23 03/23/23 Panfilo Oreilly MD [address] [place] [address] Home Care Provider Family Medicine 02/21/23 Bharat Gardner, LORENZO [address] [place], [place] [id number] Glass Technologist Post Acute Care 02/21/23 [facility] 12/17/17 [facility] Wound Center 07/23/18 [place] [facility] 06/20/20 Bail Agent Relationship Specialty Start Date End Date Panfilo Oreilly MD [address] [place] [address] PCP - General Family Medicine 02/12/17 Shreya Mccray MD [address] [place] [address] Endocrinology 07/23/18 [place]ont [address] [place] [address] Specialty Art Conservator Pulmonary Disease 12/23/18 Brandee Cotter (Bridge Inspector) [address], [place] [id number] Consulting Endocrinology 11/09/19 [place] Dumont [address] [facility] [place] [address] Consulting Pulmonary Disease 11/12/19 [facility] [address] [place] [address] Pharmacist Pharmacy 09/06/21 Dianne Garcia, ROSELYN.OIL TANK CAR CLEANER [address] [place] [address] Referring General Surgery 02/20/23 Annie Borges, [facility] [address] [place], [place] [id number] Transitional Care Pharmacist Pharmacy 02/21/23 03/22/23 Carlos Cline, RN [address] [place], [place] 3355153 Primary Care Electric Meter Inspector Internal Medicine 02/21/23 03/23/23 Panfilo Oreilly MD [address] [place], [place] 902651 Home Care Provider Family Medicine 02/21/23 Bharat Gardner, RN [address] [place] [address] Glass Technologist Post Acute Care 02/21/23 [facility] 12/17/17 [facility] Wound Center 07/23/18 [place] [facility] 06/20/20 Bail Agent Relationship Specialty Start Date End Date Panfilo Oreilly MD [address] [place], [place] [id number] PCP - General Family Medicine 02/12/17 Shreya Mccray MD [address] [place] [address] Endocrinology 07/23/18 [place] Dumont [address] [place] [address] Specialty Art Conservator Pulmonary Disease 12/23/18 Brandee Cotter (Bridge Inspector) [address], [place] [id number] Consulting Endocrinology 11/09/19 [place] Dumont [address] [place] [address] Consulting Pulmonary Disease 11/12/19 Robert Sanchez [facility] [address] [place] [address] Pharmacist Pharmacy 09/06/21 Dianne Garcia, ROSELYN.OIL TANK CAR CLEANER 1 [facility] [place], [place] [id number] [phone] Referring General Surgery 02/20/23 Annie Borges, [facility] [address] [place], [place] [phone] Transitional Care Pharmacist Pharmacy 02/21/23 03/22/23 Carlos Cline, RN [address] [place], [place] [phone] Primary Care Electric Meter Inspector Internal Medicine 02/21/23 03/23/23 Panfilo Oreilly MD [address] [place], [place] 88744691 Home Care Provider Family Medicine 02/21/23 Bharat Gardner, RN [address] [place] [address] Glass Technologist Post Acute Care 02/21/23 [facility] 12/17/17 [facility] Wound Center 07/23/18 [facility] Patients 06/20/20 Bail Agent Relationship Specialty Start Date End Date Panfilo Oreilly MD [address] [place], [place] [id number] PCP - General Family Medicine 02/12/17 Shreya Mccray MD [address] [place] [address] Endocrinology 07/23/18 [place] Dumont [address] [place] [address] Specialty Art Conservator Pulmonary Disease 12/23/18 Brandee Cotter (Bridge Inspector) [address], [place] [id number] Consulting Endocrinology 11/09/19 [place] [facility] [address] [place] [address] Consulting Pulmonary Disease 11/12/19 Robert Sanchez, [facility] [address] [place], [place] [id number] Pharmacist Pharmacy 09/06/21 Dianne Gacria APRN.OIL TANK CAR CLEANER [address] [facility] [place], [place] [phone] Referring General Surgery 02/20/23 Annie Borges, [facility] [address] [place] [address] Transitional Care Pharmacist Pharmacy 02/21/23 03/22/23 Carlos Cline, RN [address] [place] [address] Primary Care Electric Meter Inspector Internal Medicine 02/21/23 03/23/23 Panfilo Oreilly MD [address] [place], [place] [id number] Home Care Provider Family Medicine 02/21/23 Bharat Gardner, RN [address] [place] [address] Glass Technologist Post Acute Care 02/21/23 [facility] 12/17/17 [facility] Wound Center 07/23/18 [place] [facility] 06/20/20 Bail Agent Relationship Specialty Start Date End Date Panfilo Oreilly MD [address] [place], [place] [id number] PCP - General Family Medicine 02/12/17 Shreya Mccray MD [address] [place], [place] [id number] Endocrinology 07/23/18 [place] Dumont [address] [place], [place] [id number] Specialty Art Conservator Pulmonary Disease 12/23/18 Brandee Cotter (Bridge Inspector) [address], [place] [id number] Consulting Endocrinology 11/09/19 Berlin Dumont [address] [place] [address] Consulting Pulmonary Disease 11/12/19 Robert Sanchez, [facility] [address] [place], [place] [id number] Pharmacist Pharmacy 09/06/21 Dianne Garcia APRN.OIL TANK CAR CLEANER [address] [place] [address] Referring General Surgery 02/20/23 [facility] [address] [place] [address] Transitional Care Pharmacist Pharmacy 02/21/23 03/22/23 Carlos Cline, RN [address] [place], [place] [phone] Primary Care Electric Meter Inspector Internal Medicine 02/21/23 03/23/23 Panfilo Oreilly MD [address] [place], [place] [phone] Home Care Provider Family Medicine 02/21/23 Bharat Gardner, RN [address] [place] [address] Glass Technologist Post Acute Care 02/21/23 [employer] 12/17/17 [facility] Wound Center 07/23/18 [place] [facility] Patients 06/20/20 Bail Agent Relationship Specialty Start Date End Date Panfilo Oreilly MD [address] [place], [place] [phone] PCP - General Family Medicine 02/12/17 Shreya Mccray MD [address] [place] [address] Endocrinology 07/23/18 [place] Dumont [address] [place] [address] Specialty Art Conservator Pulmonary Disease 12/23/18 Brandee Cotter (Bridge Inspector) [address], [place] [id number] Consulting Endocrinology 11/09/19 [place] Dumont [address] [place] [address] Consulting Pulmonary Disease 11/12/19 Robert Sanchez, [facility] [address] [place] [address] Pharmacist Pharmacy 09/06/21 Dianne Garcia APRN.OIL TANK CAR CLEANER [address] [place] [address] Referring General Surgery 02/20/23 [facility] [address] [place] [address] Transitional Care Pharmacist Pharmacy 02/21/23 03/22/23 Carlos Cline, LORENZO [address] [place] [address] Primary Care Electric Meter Inspector Internal Medicine 02/21/23 03/23/23 Panfilo Oreilly MD [address] [place] [address] Home Care Provider Family Medicine 02/21/23 Bharat Gardner, LORENZO [address] [place], [place] 100[address]31 Glass Technologist Post Acute Care 02/21/23 [employer] 12/17/17 [facility] Wound Center 07/23/18 [place] [facility] Patients 06/20/20 Bail Agent Relationship Specialty Start Date End Date Panfilo Oreilly MD [address] [place] [address] PCP - General Family Medicine 02/12/17 Shreya Mccray MD [address] [place] [address] Endocrinology 07/23/18 [place] Dumont [address] [place] [address] Specialty Art Conservator Pulmonary Disease 12/23/18 Brandee Cotter (Bridge Inspector) [address], [place] [id number] Consulting Endocrinology 11/09/19 [place] Dumont [address] [place] [address] Consulting Pulmonary Disease 11/12/19 [facility] [address] [place] [address] Pharmacist Pharmacy 09/06/21 Dianne Garcia, ROSELYN.OIL TANK CAR CLEANER [address] [place] [address] Referring General Surgery 02/20/23 Annie Borges, [facility] [address] [place] [address] Transitional Care Pharmacist Pharmacy 02/21/23 03/22/23 Carlos Cline, RN [address] [place] [address] Primary Care Electric Meter Inspector Internal Medicine 02/21/23 03/23/23 Panfilo Oreilly MD [address] [place], [place] 522001 Home Care Provider Family Medicine 02/21/23 Bharat Gardner, RN [address] [place], [place] 6881631 Glass Technologist Post Acute Care 02/21/23 [employer] 12/17/17 [facility] Wound Center 07/23/18 [place] [facility] Patients 06/20/20 Bail Agent Relationship Specialty Start Date End Date Panfilo Oreilly MD [address] [place], [place] [id number] PCP - General Family Medicine 02/12/17 Shreya Mccray MD [address] [place], [place] 037501 Endocrinology 07/23/18 Berlin Dumont [address] [place] [address] Specialty Art Conservator Pulmonary Disease 12/23/18 Brandee Cotter (Bridge Inspector) [address], [place] [id number] Consulting Endocrinology 11/09/19 Berlin Dumont [address] [place] [address] Consulting Pulmonary Disease 11/12/19 Robert Sanchez [facility] [address] [place] [address] Pharmacist Pharmacy 09/06/21 Dianne Garcia APRN.OIL TANK CAR CLEANER [address] [facility] [place], [place] [phone] Referring General Surgery 02/20/23 Annie Borges, [facility] [address] [place], [place] [phone] Transitional Care Pharmacist Pharmacy 02/21/23 03/22/23 Carlos Cline, LORENZO [address] [place], [place] 3077295 Primary Care Electric Meter Inspector Internal Medicine 02/21/23 03/23/23 Panfilo Oreilly MD [address] [place], [place] 85660691 Home Care Provider Family Medicine 02/21/23 Bharat Gardner, LORENZO [address] [place] [address] Glass Technologist Post Acute Care 02/21/23 [employer] 12/17/17 [facility] Wound Center 07/23/18 [facility] Patients 06/20/20 Bail Agent Relationship Specialty Start Date End Date Panfilo Oreilly MD [address] [place], [place] [phone] PCP - General Family Medicine 02/12/17 Shreya Mccray MD [address] [place] [address] Endocrinology 07/23/18 Berlin Dumont [address] [place] [address] Specialty Art Conservator Pulmonary Disease 12/23/18 Brandee Cotter (Bridge Inspector) [address], [place] [id number] Consulting Endocrinology 11/09/19 Berlin Dumont [address] [place] [address] Consulting Pulmonary Disease 11/12/19 Robert Sanchez, [facility] [address] [place], [place] 476611 Pharmacist Pharmacy 09/06/21 Raquel Payne, planting material remover Electric Meter Inspector 01/17/23 02/13/23 Dianne Garcia, SAUSAGE STRINGER.OIL TANK CAR CLEANER [address] [place] [address] Referring General Surgery 02/20/23 03/02/23 Annie Borges, [facility] [address] [place], [place] 1162495 Transitional Care Pharmacist Pharmacy 02/21/23 03/22/23 Carlos Cline, RN [address] [place], [place] 1280795 Primary Care Electric Meter Inspector Internal Medicine 02/21/23 03/23/23 Panfilo Oreilly MD [address] [place], [place] [phone] Home Care Provider Family Medicine 02/21/23 Bharat Gardner, RN [address] [place], [place] 6774531 Glass Technologist Post Acute Care 02/21/23 Panfilo Oreilly MD [address] [place], [place] [phone] Referring Family Medicine 03/03/23 [employer] 12/17/17 [facility] Wound Center 07/23/18 [place] [facility] Patients 06/20/20 Bail Agent Relationship Specialty Start Date End Date Panfilo Oreilly MD [address] [place] [address] PCP - General Family Medicine 02/12/17 Shreya Mccray MD [address] [place] [address] Endocrinology 07/23/18 [place] Dumont [address] [place] [address] Specialty Art Conservator Pulmonary Disease 12/23/18 Brandee Cotter (Bridge Inspector) [address] [place] [address] Consulting Endocrinology 11/09/19 [place] Dumont [address] [place] [address] Consulting Pulmonary Disease 11/12/19 Robert Sanchez, [facility] [address] [place] [address] Pharmacist Pharmacy 09/06/21 Dianne Garcia, ROSELYN.OIL TANK CAR CLEANER [address] [place] [address] Referring General Surgery 02/20/23 03/02/23 [facility] [address] [place] [address] Transitional Care Pharmacist Pharmacy 02/21/23 03/22/23 Carlos Cline, RN [address] [place] [address] Primary Care Electric Meter Inspector Internal Medicine 02/21/23 03/23/23 Panfilo Oreilly MD [address] [place] [address] Home Care Provider Family Medicine 02/21/23 Bharat Gardner, LORENZO [address] [place] [address] Glass Technologist Post Acute Care 02/21/23 Panfilo Oreilly MD [address] [place] [address] Referring Family Medicine 03/03/23 [employer] 12/17/17 [facility] Wound Center 07/23/18 [place] Patients 06/20/20 Bail Agent Relationship Specialty Start Date End Date Panfilo Oreilly MD [address] [place], [place] 195921 PCP - General Family Medicine 02/12/17 Shreya Mccray MD [address] [place] [address] Endocrinology 07/23/18 [place] Dumont [address] [place] [address] Specialty Art Conservator Pulmonary Disease 12/23/18 Brandee Cot[place] (Bridge Inspector) [address] [place] [address] Consulting Endocrinology 11/09/19 [place] Dumont [address] [place] [address] Consulting Pulmonary Disease 11/12/19 [facility] [address] [place] [address] Pharmacist Pharmacy 09/06/21 Dianne Garcia, ROSELYN.OIL TANK CAR CLEANER [address] [place] [address] Referring General Surgery 02/20/23 03/02/23 Annie Borges, [facility] [address] [place] [address] Transitional Care Pharmacist Pharmacy 02/21/23 03/22/23 Carlos Cline, LORENZO [address] [place] [address] Primary Care Electric Meter Inspector Internal Medicine 02/21/23 03/23/23 Panfilo Oreilly MD [address] [place] [address] Home Care Provider Family Medicine 02/21/23 Bharat Gardner, RN [address] [place] [address] Glass Technologist Post Acute Care 02/21/23 [employer] 12/17/17 [facility] Wound Center 07/23/18 [place] [facility] Patients 06/20/20 Bail Agent Relationship Specialty Start Date End Date Panfilo Oreilly MD [address] [place], [place] [phone] PCP - General Family Medicine 02/12/17 Shreya Mccray MD [address] [place] [address] Endocrinology 07/23/18 [place] Dumont [address] [place] [address] Specialty Art Conservator Pulmonary Disease 12/23/18 Brandee Cotter (Bridge Inspector) [address], [place] [id number] Consulting Endocrinology 11/09/19 [place] Dumont [address] [place] [address] Consulting Pulmonary Disease 11/12/19 [facility] [address] [place] [address] Pharmacist Pharmacy 09/06/21 [facility] [address] [place], [place] 315[address]5 Transitional Care Pharmacist Pharmacy 02/21/23 03/22/23 Carlos Cline, LORENZO [address] [place], [place] 8323395 Primary Care Electric Meter Inspector Internal Medicine 02/21/23 03/23/23 Panfilo Oreilly MD [address] [place], [place] 03220691 Home Care Provider Family Medicine 02/21/23 Bharat Gardner, LORENZO [address] [place], [place] 1835931 Glass Technologist Post Acute Care 02/21/23 Panfilo Oreilly MD [address] [place], [place] 92902691 Referring Family Medicine 03/03/23 [employer] 12/17/17 [facility] Wound Center 07/23/18 [place] [facility] Patients 06/20/20 Bail Agent Relationship Specialty Start Date End Date Panfilo Oreilly MD [address] [place] [place], [place] [phone] PCP - General Family Medicine 02/12/17 Shreya Mccray MD [address] [place], [place] [id number] Endocrinology 07/23/18 [place] Dumont [address] [place] [address] Specialty Art Conservator Pulmonary Disease 12/23/18 Brandee Cotter (Bridge Inspector) [address] [place] [address] Consulting Endocrinology 11/09/19 [place] Dumont [address] [place], [place] 832911 Consulting Pulmonary Disease 11/12/19 Robert Sanchez, [facility] [address] [place], [place] [phone] Pharmacist Pharmacy 09/06/21 Annie Borges, [facility] [address] [place] [address] Transitional Care Pharmacist Pharmacy 02/21/23 03/22/23 Carlos Cline, LORENZO [address] [place], [place] 0795395 Primary Care Electric Meter Inspector Internal Medicine 02/21/23 03/23/23 Panfilo Oreilly MD [address] [place], [place] 98064691 Home Care Provider Family Medicine 02/21/23 Bharat Gardner, LORENZO [address] [place], [place] 1392131 Glass Technologist Post Acute Care 02/21/23 Panfilo Oreilly MD [address] [place], [place] 59515691 Referring Family Medicine 03/03/23 [employer] 12/17/17 [facility] Wound Center 07/23/18 [place] [facility] Patients 06/20/20 Bail Agent Relationship Specialty Start Date End Date Panfilo Oreilly MD [address] [place], [place] [phone] PCP - General Family Medicine 02/12/17 Shreya Mccray MD [address] [place], [place] 82047691 Endocrinology 07/23/18 [place] Dumont [address] [facility] [place] [place] [address] Specialty Art Conservator Pulmonary Disease 12/23/18 Brandee Cotter (Bridge Inspector) [address], [place] [id number] Consulting Endocrinology 11/09/19 [place] Dumont [address] [place] [address] Consulting Pulmonary Disease 11/12/19 Robert Sanchez, [facility] [address] [place] [address] Pharmacist Pharmacy 09/06/21 [facility] [address] [place] [address] Transitional Care Pharmacist Pharmacy 02/21/23 03/22/23 Carlos Cline, LORENZO [address] [place] [address] Primary Care Electric Meter Inspector Internal Medicine 02/21/23 03/23/23 Panfilo Oreilly MD [address] [place], [place] 15035691 Home Care Provider Family Medicine 02/21/23 Bharat Gardner, RN [address] [place] [address] Glass Technologist Post Acute Care 02/21/23 Panfilo Oreilly MD [address] [place], [place] [phone] Referring Family Medicine 03/03/23 [employer] 12/17/17 [facility] Wound Center 07/23/18 [place] [facility] Patients 06/20/20 Team Status: Active Member Role Status Dates Dr. iTno Oreilly MD Primary Care Provider Acti david [...] Villalobos MD Other Provider Active Nelly Hunter QUALITY OFFICER, QUALITY OFFICER-C Other Provider Active Team Status: Active Member [...] Villalobos MD Other Provider Active Nelly Hunter QUALITY OFFICER, QUALITY OFFICER-C Other Provider Active Dr. Chris Gill MD [...] Villalobos MD Other Provider Active Nelly Hunter QUALITY OFFICER, QUALITY OFFICER-C Other Provider Active Dr. Ling Neville MD [...] Villalobos MD Other Provider Active Nelly Hunter QUALITY OFFICER, QUALITY OFFICER-C Other Provider Active Dr. Ling Neville MD [...] Villalobos MD Other Provider Active Nelly Hunter QUALITY OFFICER, QUALITY OFFICER-C Other Provider Active Dr. Ling Neville MD Attending Provider Active Bail Agent Relationship Specialty Start Date End Date Panfilo Oreilly MD [address] [place], [place] [phone] PCP - General Family Medicine 02/12/17 Shreya Mccray MD [address] [place], [place] [id number] Endocrinology 07/23/18 Brandee Cotter (Bridge Inspector) [address], [place] [id number] Consulting Endocrinology 11/09/19 Annie Borges, [facility] [address] [place] [address] Transitional Care Pharmacist Pharmacy 02/21/23 03/22/23 Carlos Cline, RN [address] [place] [address] Primary Care Electric Meter Inspector Internal Medicine 02/21/23 03/23/23 Panfilo Oreilly MD [address] [place], [place] 41698691 Home Care Provider Family Medicine 03/05/23 Bharat Gardner, LORENZO [address] [place] [address] Glass Technologist Post Acute Care 02/21/23 iLng Neville MD [address] [place], [place] 95925691 Referring Internal Medicine 03/05/23 [employer] 12/17/17 [facility] Wound Center 07/23/18 [place] [facility] Patients 06/20/20 Bail Agent Relationship Specialty Start Date End Date Panfilo Oreilly MD [address] [place], [place] [phone] PCP - General Family Medicine 02/12/17 Shreya Mccray MD [address] [place], [place] 56894691 Endocrinology 07/23/18 Brandee Cotter (Bridge Inspector) [address], [place] [id number] Consulting Endocrinology 11/09/19 [facility] [address] [place] [address] Transitional Care Pharmacist Pharmacy 02/21/23 03/22/23 Carlos Cline, RN [address] [place] [address] Primary Care Electric Meter Inspector Internal Medicine 02/21/23 03/23/23 Panfilo Oreilly MD [address] [place], [place] 562[address]1 Home Care Provider Family Medicine 03/05/23 Bharat Gardner, RN [address] [place] [address] Glass Technologist Post Acute Care 02/21/23 Ling Neville MD [address] [place], [place] [phone] Referring Internal Medicine 03/05/23 [employer] 12/17/17 [facility] Wound Center 07/23/18 [place] [facility] Patients 06/20/20 Bail Agent Relationship Specialty Start Date End Date Panfilo Oreilly MD [address] [place], [place] [id number] PCP - General Family Medicine 02/12/17 Shreya Mccray MD [address] [place], [place] [id number] Endocrinology 07/23/18 Brandee Cotter (Bridge Inspector) [address], [place] [id number] Consulting Endocrinology 11/09/19 [facility] [address] [place] [address] Transitional Care Pharmacist Pharmacy 02/21/23 03/22/23 Carlos Cline, LORENZO [address] [place] [address] Primary Care Electric Meter Inspector Internal Medicine 02/21/23 03/23/23 Panfilo Oreilly MD [address] [place], [place] [phone] Home Care Provider Family Medicine 03/05/23 Bharat Gardner RN [address] [place] [address] Glass Technologist Post Acute Care 02/21/23 Ling Neville MD [address] [place], [place] 40442691 Referring Internal Medicine 03/05/23 Bharat Gardner RN [address] [place] [address] Glass Technologist Post Acute Care 03/06/23 [employer] 12/17/17 [facility] Wound Center 07/23/18 [place] [facility] Patients 06/20/20 Bail Agent Relationship Specialty Start Date End Date Panfilo Oreilly MD [address] [place] [place], [place] [phone] PCP - General Family Medicine 02/12/17 Shreya Mccray MD [address] [place], [place] 457611 Endocrinology 07/23/18 Brandee Cotter (Bridge Inspector) [address], [place] [id number] Consulting Endocrinology 11/09/19 [facility] [address] [place] [address] Transitional Care Pharmacist Pharmacy 02/21/23 03/22/23 Carols Cline, LORENZO [address] [place], [place] 1414695 Primary Care Electric Meter Inspector Internal Medicine 02/21/23 03/23/23 Panfilo Oreilly MD [address] [place], [place] [phone] Home Care Provider Family Medicine 03/05/23 Bharat Gardner, LORENZO [address] [place] [address] Glass Technologist Post Acute Care 02/21/23 Ling Neville MD [address] [place] [address] Referring Internal Medicine 03/05/23 Bharat Gardner RN [address] [place] [address] Glass Technologist Post Acute Care 03/06/23 [employer] 12/17/17 [facility] Wound Center 07/23/18 [place] [facility] Patients 06/20/20 Bail Agent Relationship Specialty Start Date End Date Panfilo Oreilly MD [address] [place], [place] [phone] PCP - General Family Medicine 02/12/17 Shreya Mccray MD [address] [place] [address] Endocrinology 07/23/18 Brandee Cotter (Bridge Inspector) [address], [place] [id number] Consulting Endocrinology 11/09/19 [facility] [address] [place] [address] Transitional Care Pharmacist Pharmacy 02/21/23 03/22/23 Carlos Cline, LORENZO [address] [place] [address] Primary Care Electric Meter Inspector Internal Medicine 02/21/23 03/23/23 Panfilo Oreilly MD [address] [place], [place] [phone] Home Care Provider Family Medicine 03/05/23 Bharat Gardner, LORENZO [address] [place] [address] Glass Technologist Post Acute Care 02/21/23 Ling Neville MD [address] [place] [address] Referring Internal Medicine 03/05/23 Bharat Gardner, LORENZO [address] [place] [address] Glass Technologist Post Acute Care 03/06/23 [facility] 12/17/17 [facility] Wound Center 07/23/18 [place] [facility] Patients 06/20/20 Bail Agent Relationship Specialty Start Date End Date Panfilo Oreilly MD [address] [place], [place] 887501 PCP - General Family Medicine 02/12/17 Shreya Mccray MD [address] [place], [place] 706291 Endocrinology 07/23/18 Brandee Cotter (Bridge Inspector) [address], [place] [id number] Consulting Endocrinology 11/09/19 Annie Borges, [facility] [address] [place] [address] Transitional Care Pharmacist Pharmacy 02/21/23 03/22/23 Carlos Cline RN [address] [place], [place] 0985695 Primary Care Electric Meter Inspector Internal Medicine 02/21/23 03/23/23 Panfilo Oreilly MD [address] [place], [place] [id number] Home Care Provider Family Medicine 03/05/23 Bharat Gardner, LORENZO [address] [place] [address] Glass Technologist Post Acute Care 02/21/23 Ling Neville MD [address] [place], [place] 24143691 Referring Internal Medicine 03/05/23 Bharat Gardner, LORENZO [address] [place] [address] Glass Technologist Post Acute Care 03/06/23 [facility] 12/17/17 [facility] Wound Center 07/23/18 [place] [facility] Patients 06/20/20 Bail Agent Relationship Specialty Start Date End Date Panfilo Oreilly MD [address] [place], [place] [phone] PCP - General Family Medicine 02/12/17 Shreya Mccray MD [address] [place] [address] Endocrinology 07/23/18 [place] Dumont [address] [place] [address] Specialty Art Conservator Pulmonary Disease 12/23/18 03/04/23 Brandee Cotter (Bridge Inspector) [address], [place] [id number] Consulting Endocrinology 11/09/19 [place] Dumont [address] [facility] [place] [address] Consulting Pulmonary Disease 11/12/19 03/04/23 [facility] [address] [place] [address] Pharmacist Pharmacy 09/06/21 03/04/23 Dianne Garcia, SAUSAGE STRINGER.OIL TANK CAR CLEANER [address] [place] [address] Referring General Surgery 02/20/23 03/02/23 [facility] [address] [place] [address] Transitional Care Pharmacist Pharmacy 02/21/23 03/22/23 Carlos Cline, LORENZO [address] [place], [place] 1168395 Primary Care Electric Meter Inspector Internal Medicine 02/21/23 03/23/23 Panfilo Oreilly MD [address] [place] [address] Home Care Provider Family Medicine 03/05/23 Bharat Gardner, LORENZO [address] [place] [address] Glass Technologist Post Acute Care 02/21/23 Panfilo Oreilly MD [address] [place], [place] [phone] Referring Family Medicine 03/03/23 03/04/23 Ling Neville MD [address] [place], [place] 667621 Referring Internal Medicine 03/05/23 Bharat Gardner, LORENZO [address] [place], [place] 7172831 Glass Technologist Post Acute Care 03/06/23 [facility] 12/17/17 [facility] Wound Center 07/23/18 [place] [facility] Patients 06/20/20 Bail Agent Relationship Specialty Start Date End Date Panfilo Oreilly MD [address] [place], [place] [phone] PCP - General Family Medicine 02/12/17 Shreya Mccray MD [address] [place], [place] [phone] Endocrinology 07/23/18 Brandee Cotter (Bridge Inspector) [address], [place] [id number] Consulting Endocrinology 11/09/19 Annie Borges, [facility] [address] [place] [address] Transitional Care Pharmacist Pharmacy 02/21/23 03/22/23 Carlos Cline, LORENZO [address] [place] [address] Primary Care Electric Meter Inspector Internal Medicine 02/21/23 03/23/23 Panfilo Oreilly MD [address] [place], [place] [phone] Home Care Provider Family Medicine 03/05/23 Bharat Gardner, RN [address] [place] [address] Glass Technologist Post Acute Care 02/21/23 Ling Neville MD [address] [place] [address] Referring Internal Medicine 03/05/23 Bharat Gardner RN [address] [place] [address] Glass Technologist Post Acute Care 03/06/23 [facility] 12/17/17 [facility] Wound Center 07/23/18 [facility] Patients 06/20/20 Bail Agent Relationship Specialty Start Date End Date Panfilo Oreilly MD [address] [place], [place] [phone] PCP - General Family Medicine 02/12/17 Shreya Mccray MD [address] [place], [place] [phone] Endocrinology 07/23/18 Brandee Cotter (Bridge Inspector) [address], [place] [id number] Consulting Endocrinology 11/09/19 Annie Borges, [facility] [address] [place] [address] Transitional Care Pharmacist Pharmacy 02/21/23 03/22/23 Carlos Cline, LORENZO [address] [place] [address] Primary Care Electric Meter Inspector Internal Medicine 02/21/23 03/23/23 Panfilo Oreilly MD [address] [place], [place] [phone] Home Care Provider Family Medicine 03/05/23 Bharat Gardner RN [address] [place], [place] 5693931 Glass Technologist Post Acute Care 02/21/23 Ling Neville MD [address] [place] [address] Referring Internal Medicine 03/05/23 Bharat Gardner RN [address] [place], [place] 4545331 Glass Technologist Post Acute Care 03/06/23 [facility] 12/17/17 [facility] Wound Center 07/23/18 [place] [facility] Patients 06/20/20 Bail Agent Relationship Specialty Start Date End Date Panfilo Oreilly MD [address] [place], [place] [phone] PCP - General Family Medicine 02/12/17 Shreya Mccray MD [address] [place], [place] [id number] Endocrinology 07/23/18 Barndee Cotter (Bridge Inspector) [address], [place] [id number] Consulting Endocrinology 11/09/19 [facility] [address] [place], [place] [phone] Transitional Care Pharmacist Pharmacy 02/21/23 03/22/23 Carlos Cline, LORENZO [address] [place], [place] [phone] Primary Care Electric Meter Inspector Internal Medicine 02/21/23 03/23/23 Panfilo Oreilly MD [address] [place], [place] [phone] Home Care Provider Family Medicine 03/05/23 Bharat Gardner RN [address] [place] [address] Glass Technologist Post Acute Care 02/21/23 Ling Neville MD [address] [place], [place] 927781 Referring Internal Medicine 03/05/23 Bharat Gardner, LORENZO [address] [place] [address] Glass Technologist Post Acute Care 03/06/23 [facility] 12/17/17 [facility] Wound Center 07/23/18 [place] [facility] Patients 06/20/20 Bail Agent Relationship Specialty Start Date End Date Panfilo Oreilly MD [address] [place], [place] [id number] PCP - General Family Medicine 02/12/17 Shreya Mccray MD [address] [place], [place] [phone] Endocrinology 07/23/18 Brandee Cotter (Bridge Inspector) [address], [place] [id number] Consulting Endocrinology 11/09/19 [facility] [address] [place], [place] [id number] Transitional Care Pharmacist Pharmacy 02/21/23 03/22/23 Carlos Cline, LORENZO [address] [place], [place] [id number] Primary Care Electric Meter Inspector Internal Medicine 02/21/23 03/23/23 Panfilo Oreilly MD [address] [place], [place] [id number] Home Care Provider Family Medicine 03/05/23 Bharat Gardner RN [address] [place] [address] Glass Technologist Post Acute Care 02/21/23 Ling Neville MD [address] [place], [place] [address]321 Referring Internal Medicine 03/05/23 Bharat Gardner, LORENZO [address] [place] [address] Glass Technologist Post Acute Care 03/06/23 [employer] 12/17/17 [facility] Wound Center 07/23/18 [place] [facility] Patients 06/20/20 Bail Agent Relationship Specialty Start Date End Date Panfilo Oreilly MD [address] [place] [place], [place] [id number] PCP - General Family Medicine 02/12/17 Shreya Mccray MD [address] [place], [place] [id number] Endocrinology 07/23/18 Brandee Cot[place] (Bridge Inspector) [address], [place] [id number] Consulting Endocrinology 11/09/19 Annie Borges, [facility] [address] [place] [address] Transitional Care Pharmacist Pharmacy 02/21/23 03/22/23 Carlos Cline RN [address] [place] [address] Primary Care Electric Meter Inspector Internal Medicine 02/21/23 03/23/23 Panfilo Oreilly MD [address] [place], [place] [phone] Home Care Provider Family Medicine 03/05/23 Bharat Gardner, LORENZO [address] [place] [address] Glass Technologist Post Acute Care 02/21/23 Ling Neville MD [address] [facility] [place] [phone] Referring Internal Medicine 03/05/23 Bharat Gardner, LORENZO [address] [place] [address] Glass Technologist Post Acute Care 03/06/23 [employer] 12/17/17 [facility] Wound Center 07/23/18 [place] [facility] Patients 06/20/20 Bail Agent Relationship Specialty Start Date End Date Panfilo Oreilly MD [address] [place], [place] [phone] PCP - General Family Medicine 02/12/17 Shreya Mccray MD [address] [place], [place] [phone] Endocrinology 07/23/18 Brandee [place] (Bridge Inspector) [address], [place] [id number] Consulting Endocrinology 11/09/19 [facility] [address] [place] [address] Transitional Care Pharmacist Pharmacy 02/21/23 03/22/23 Carlos Cline RN [address] [place] [address] Primary Care Electric Meter Inspector Internal Medicine 02/21/23 03/23/23 Panfilo Oreilly MD [address] [place], [place] [phone] Home Care Provider Family Medicine 03/05/23 Bharat Gardner, LORENZO [address] [place] [address] Glass Technologist Post Acute Care 02/21/23 Ling Neville MD [address] [place], [place] [phone] Referring Internal Medicine 03/05/23 Bharat Gardner RN [address] [place] [address] Glass Technologist Post Acute Care 03/06/23 [employer] 12/17/17 [facility] Wound Center 07/23/18 [place] [facility] Patients 06/20/20 Bail Agent Relationship Specialty Start Date End Date Panfilo Oreilly MD [address] [place], [place] 496501 PCP - General Family Medicine 02/12/17 Shreya Mccray MD [address] [place] [address] Endocrinology 07/23/18 Berlin Dumont [address] [place] [address] Specialty Art Conservator Pulmonary Disease 12/23/18 03/04/23 Brandee [place] (Bridge Inspector) [address], [place] [id number] Consulting Endocrinology 11/09/19 Berlin Dumont [address] [place] [address] Consulting Pulmonary Disease 11/12/19 03/04/23 [facility] [address] [place] [address] Pharmacist Pharmacy 09/06/21 03/04/23 Dianne Garcia, ROSELYN.OIL TANK CAR CLEANER [address] [place] [address] Referring General Surgery 02/20/23 03/02/23 Annie Borges, [facility] [address] [place] [address] Transitional Care Pharmacist Pharmacy 02/21/23 03/22/23 Carlos Cline, LORENZO [address] [place], [place] [phone] Primary Care Electric Meter Inspector Internal Medicine 02/21/23 03/23/23 Panfilo Oreilly MD [address] [place], [place] [phone] Home Care Provider Family Medicine 03/05/23 Bharat Gardner, LORENZO [address] [place] [address] Glass Technologist Post Acute Care 02/21/23 Panfilo Oreilly MD [address] [place], [place] [phone] Referring Family Medicine 03/03/23 03/04/23 Ling Neville MD [address] [place], [place] [phone] Referring Internal Medicine 03/05/23 Bharat Gardner, LORENZO [address] [place] [address] Glass Technologist Post Acute Care 03/06/23 [employer] 12/17/17 [facility] Wound Center 07/23/18 [place] [facility] Patients 06/20/20 Bail Agent Relationship Specialty Start Date End Date Panfilo Oreilly MD [address] [place], [place] [phone] PCP - General Family Medicine 02/12/17 Shreya Mccray MD [address] [place], [place] [id number] Endocrinology 07/23/18 Brandee [place] (Bridge Inspector) [address], [place] [id number] Consulting Endocrinology 11/09/19 Panfilo Oreilly MD [address] [place] [address] Home Care Provider Family Medicine 03/05/23 Bharat Gardner, RN [address] [place] [address] Glass Technologist Post Acute Care 02/21/23 Ling Neville MD [address] [place], [place] 224571 Referring Internal Medicine 03/05/23 Bharat Gardner, LORENZO [address] [place] [address] Glass Technologist Post Acute Care 03/06/23 [employer] 12/17/17 [facility] Wound Center 07/23/18 [place] [facility] Patients 06/20/20 Bail Agent Relationship Specialty Start Date End Date Panfilo Oreilly MD [address] [place] [address] PCP - General Family Medicine 02/12/17 Shreya Mccray MD [address] [place] [address] Endocrinology 07/23/18 Berlin Dumont [address] [place] [address] Specialty Art Conservator Pulmonary Disease 12/23/18 03/04/23 Brandee [place] (Bridge Inspector) [address], [place] [id number] Consulting Endocrinology 11/09/19 Berlin Dumont [address] [place] [address] Consulting Pulmonary Disease 11/12/19 03/04/23 Robert Sanchez [facility] [address] [place], [place] [phone] Pharmacist Pharmacy 09/06/21 03/04/23 Raquel Payne, planting material remover Electric Meter Inspector 01/17/23 02/13/23 Dianne Garcia, SAUSAGE STRINGER.OIL TANK CAR CLEANER [address] [place] [address] Referring General Surgery 02/20/23 03/02/23 [facility] [address] [place], [place] [phone] Transitional Care Pharmacist Pharmacy 02/21/23 03/22/23 Carlos Cline, LORENZO [address] [place], [place] [phone] Primary Care Electric Meter Inspector Internal Medicine 02/21/23 03/23/23 Panfilo Oreilly MD [address] [place], [place] [phone] Home Care Provider Family Medicine 03/05/23 Bharat Gardner, LORENZO [address] [place], [place] 9773731 Glass Technologist Post Acute Care 02/21/23 Panfilo Oreilly MD [address] [place], [place] [phone] Referring Family Medicine 03/03/23 03/04/23 Ling Neville MD [address] [place], [place] [phone] Referring Internal Medicine 03/05/23 Bharat Gardner, LORENZO [address] [place] [address] Glass Technologist Post Acute Care 03/06/23 [employer] 12/17/17 [facility] Wound Center 07/23/18 [place] [facility] Patients 06/20/20 Bail Agent Relationship Specialty Start Date End Date Panfilo Oreilly MD [address] [place] [address] PCP - General Family Medicine 02/12/17 Shreya Mccray MD [address] [place] [address] Endocrinology 07/23/18 Brandee [place] (Bridge Inspector) [address], [place] [id number] Consulting Endocrinology 11/09/19 Panfilo Oreilly MD [address] [place] [address] Home Care Provider Family Medicine 03/05/23 Bharat Gardner RN [address] [place] [address] Glass Technologist Post Acute Care 02/21/23 Ling Neville MD [address] [place], [place] 421561 Referring Internal Medicine 03/05/23 Bharat Gardner RN [address] [place] [address] Glass Technologist Post Acute Care 03/06/23 [employer] 12/17/17 [facility] Wound Center 07/23/18 [place] [facility] Patients 06/20/20 Bail Agent Relationship Specialty Start Date End Date Panfilo Oreilly MD [address] [place], [place] [phone] PCP - General Family Medicine 02/12/17 Shreya Mccray MD [address] [place] [address] Endocrinology 07/23/18 Brandee [place] (Bridge Inspector) [address] [place] [address] Consulting Endocrinology 11/09/19 Panfilo Oreilly MD [address] [place], [place] 578061 Home Care Provider Family Medicine 03/05/23 Bharat Gardner, LORENZO [address] [place], [place] 399[address]31 Glass Technologist Post Acute Care 02/21/23 Ling Neville MD [address] [place] [address] Referring Internal Medicine 03/05/23 Bharat Gardner, LORENZO [address] [place] [address] Glass Technologist Post Acute Care 03/06/23 [employer] 12/17/17 [facility] Wound Center 07/23/18 [facility] Patients 06/20/20 Bail Agent Relationship Specialty Start Date End Date Panfilo Oreilly MD [address] [place] [address] PCP - General Family Medicine 02/12/17 Shreya Mccray MD [address] [place], [place] [id number] Endocrinology 07/23/18 Brandee [place] (Bridge Inspector) [address] [place] [address] Consulting Endocrinology 11/09/19 Panfilo Oreilly MD [address] [place], [place] [phone] Home Care Provider Family Medicine 03/05/23 Bharat Gardner, LORENZO [address] [place], [place] 2465531 Glass Technologist Post Acute Care 02/21/23 Ling Neville MD [address] [place] [address] Referring Internal Medicine 03/05/23 Bharat Gardner RN [address] [place], [place] 5343731 Glass Technologist Post Acute Care 03/06/23 [employer] 12/17/17 [facility] Wound Center 07/23/18 [place] [facility] Patients 06/20/20 Bail Agent Relationship Specialty Start Date End Date Panfilo Oreilly MD [address] [place] [address] PCP - General Family Medicine 02/12/17 Shreya Mccray MD [address] [place] [address] Endocrinology 07/23/18 Panfilo Oreilly MD [address] [place] [address] Home Care Provider Family Medicine 03/05/23 Bharat Gardner RN [address] [place] [address] Glass Technologist Post Acute Care 03/06/23 Chris Gill [address] [place] [address] Referring Internal Medicine 04/24/23 [employer] 12/17/17 [facility] Wound Center 07/23/18 [place] [facility] Patients 06/20/20 Bail Agent Relationship Specialty Start Date End Date Panfilo Oreilly MD [address] [place] [address] PCP - General Family Medicine 02/12/17 Shreya Mccray MD [address] [place] [address] Endocrinology 07/23/18 Panfilo Oreilly MD [address] [facility] [place] [address] Home Care Provider Family Medicine 03/05/23 Bharat Gardner RN [address] [place], [place] 2587231 Glass Technologist Post Acute Care 03/06/23 Chris Gill [address] [place] [address] Referring Internal Medicine 04/24/23 [employer] 12/17/17 [facility] Wound Center 07/23/18 [place] [facility] Patients 06/20/20 Bail Agent Relationship Specialty Start Date End Date Panfilo Oreilly MD [address] [place] [address] PCP - General Family Medicine 02/12/17 Shreya Mccray MD [address] [place] [address] Endocrinology 07/23/18 Panfilo Oreilly MD [address] [place] [address] Home Care Provider Family Medicine 03/05/23 Bharat Gardner RN [address] [place] [address] Glass Technologist Post Acute Care 03/06/23 Chris Gill [address] [facility] [place] [address] Referring Internal Medicine 04/24/23 [employer] 12/17/17 [facility] Wound Center 07/23/18 [place] [facility] Patients 06/20/20 Bail Agent Relationship Specialty Start Date End Date Panfilo Oreilly MD [address] [place] [address] PCP - General Family Medicine 02/12/17 Shreya Mccray MD [address] [place] [address] Endocrinology 07/23/18 Panfilo Oreilly MD [address] [place] [address] Home Care Provider Family Medicine 03/05/23 Bharat Gardner RN [address] [place] [address] Glass Technologist Post Acute Care 03/06/23 Chris Gill [address] [facility] [place] [address] Referring Internal Medicine 04/24/23 [employer] 12/17/17 [facility] Wound Center 07/23/18 [facility] Patients 06/20/20 Bail Agent Relationship Specialty Start Date End Date Panfilo Oreilly MD [address] [place] [address] PCP - General Family Medicine 02/12/17 Shreya Mccray MD [address] [place] [address] Endocrinology 07/23/18 Panfilo Oreilly MD [address] [place] [address] Home Care Provider Family Medicine 03/05/23 Bharat Gardner RN [address] [place], [place] 14687[address] Glass Technologist Post Acute Care 03/06/23 Chris Gill [address] [facility] [address] Referring Internal Medicine 04/24/23 [facility] 12/17/17 [facility] Wound Center 07/23/18 [place] [facility] Patients 06/20/20 Bail Agent Relationship Specialty Start Date End Date Panfilo Oreilly MD [address] [facility] [place] [address] PCP - General Family Medicine 02/12/17 Shreya Mccray MD [address] [facility] [place] [address] Endocrinology 07/23/18 Panfilo Oreilly MD [address] [facility] [place] [address] Home Care Provider Family Medicine 03/05/23 Chris Gill [address] [place] [address] Referring Internal Medicine 04/24/23 [employer] 12/17/17 [facility] Wound Center 07/23/18 [place] [facility] Patients 06/20/20 Bail Agent Relationship Specialty Start Date End Date Panfilo Oreilly MD [address] [facility] [place] [address] PCP - General Family Medicine 02/12/17 Shreya Mccray MD [address] [facility] [place] [address] Endocrinology 07/23/18 Panfilo Oreilly MD [address] [facility] [place] [address] Home Care Provider Family Medicine 03/05/23 Chris Gill [address] [place] [address] Referring Internal Medicine 04/24/23 [facility] 12/17/17 [facility] Wound Center 07/23/18 [place] Home Patients 06/20/20 Bail Agent Relationship Specialty Start Date End Date Panfilo Oreilly MD [address] [facility] [place], [place] [address] [phone] PCP - General Family Medicine 02/12/17 Shreya Mccray MD [address] [facility] [place] [address] Endocrinology 07/23/18 Panfilo Oreilly MD [address] [facility] [place] [address] Home Care Provider Family Medicine 03/05/23 Chris Gill [address] [place] [address] Referring Internal Medicine 04/24/23 [facility] 12/17/17 [facility] Wound Center 07/23/18 [place] [facility] Patients 06/20/20 Bail Agent Relationship Specialty Start Date End Date Panfilo Oreilly MD [address] [facility] [place] [address] PCP - General Family Medicine 02/12/17 Shreya Mccray MD [address] [facility] [place] [address] Endocrinology 07/23/18 Panfilo Oreilly MD [address] [facility] [place] [address] Home Care Provider Family Medicine 03/05/23 Bharat Gardner, RN [address] [place] [address] Glass Technologist Post Acute Care 03/06/23 05/01/23 Chris Gill [address] [place] [address] Referring Internal Medicine 04/24/23 [facility] 12/17/17 [facility] Wound Center 07/23/18 [place] Home Patients 06/20/20 Bail Agent Relationship Specialty Start Date End Date Panfilo Oreilly MD [address] [place], [place] 163841 PCP - General Family Medicine 02/12/17 Shreya Mccray MD [address] [place] [address] Endocrinology 07/23/18 Panfilo Oreilly MD [address] [place], [place] 568111 Home Care Provider Family Medicine 03/05/23 Chris Gill MD [address] [place] [address] Referring Internal Medicine 04/24/23 [facility] 12/17/17 [facility] Wound Center 07/23/18 [place] [facility] Patients 06/20/20 Bail Agent Relationship Specialty Start Date End Date Panfilo Oreilly MD [address] [place] [address] PCP - General Family Medicine 02/12/17 Shreya Mccray MD [address] [place], [place] 687461 Endocrinology 07/23/18 Brandee [place] (Bridge Inspector) [address], [place] [id number] Consulting Endocrinology 11/09/19 04/23/23 [facility] [address] [place] [address] Transitional Care Pharmacist Pharmacy 02/21/23 03/22/23 Carlos Cline RN [address] [place] [address] Primary Care Electric Meter Inspector Internal Medicine 02/21/23 03/23/23 Panfilo Oreilly MD [address] [place], [place] [id number] Home Care Provider Family Medicine 03/05/23 Bharat Gardner, LORENZO [address] [place] [address] Glass Technologist Post Acute Care 02/21/23 04/23/23 Ling Neville MD [address] [facility] [place] [address] Referring Internal Medicine 03/05/23 04/23/23 Bharat Gardner, LORENZO [address] [place], [place] 7987931 Glass Technologist Post Acute Care 03/06/23 05/01/23 Chris Gill MD [address] [place], [place] 25998691 Referring Internal Medicine 04/24/23 [facility] 12/17/17 [facility] Wound Center 07/23/18 [place] [facility] Patients 06/20/20 Bail Agent Relationship Specialty Start Date End Date Panfilo Oreilly MD [address] [place], [place] [phone] PCP - General Family Medicine 02/12/17 Shreya Mccray MD [address] [place] [address] Endocrinology 07/23/18 Panfilo Oreilly MD [address] [place], [place] 384311 Home Care Provider Family Medicine 03/05/23 Chris Gill MD [address] [place] [address] Referring Internal Medicine 04/24/23 [facility] 12/17/17 [facility] Wound Center 07/23/18 [place] [facility] Patients 06/20/20 Bail Agent Relationship Specialty Start Date End Date Panfilo Oreilly MD [address] [place], [place] 966361 PCP - General Family Medicine 02/12/17 Shreya Mccray MD [address] [place], [place] 907111 Endocrinology 07/23/18 Panfilo Oreilly MD [address] [place], [place] 195251 Home Care Provider Family Medicine 03/05/23 Chris Gill MD [address] [place] [address] Referring Internal Medicine 04/24/23 [facility] 12/17/17 [facility] Wound Center 07/23/18 [place] [facility] Patients 06/20/20 Bail Agent Relationship Specialty Start Date End Date Shreya Mccray MD Endocrinology 07/23/18 Panfilo Oreilly MD [address] [place] [address] Home Care Provider Family Medicine 03/05/23 Chris Gill MD [address] [place], [place] 687191 Referring Internal Medicine 04/24/23 [facility] 12/17/17 [facility] Wound Center 07/23/18 [place] Home Patients 06/20/20 Bail Agent Relationship Specialty Start Date End Date Shreya Mccray MD Endocrinology 07/23/18 Panfilo Oreilly MD [address] [place], [place] 876881 Home Care Provider Family Medicine 03/05/23 Chris Gill MD [address] [place], [place] 234871 Referring Internal Medicine 04/24/23 [facility] 12/17/17 [facility] Wound Center 07/23/18 [place] [facility] Patients 06/20/20 Bail Agent Relationship Specialty Start Date End Date Shreya Mccray MD Endocrinology 07/23/18 Panfilo Oreilly MD [address] [place], [place] 681111 Home Care Provider Family Medicine 03/05/23 Chris Gill MD [address] [place], [place] 72021691 Referring Internal Medicine 04/24/23 [facility] 12/17/17 [facility] Wound Center 07/23/18 [place] [facility] Patients 06/20/20 Bail Agent Relationship Specialty Start Date End Date Shreya Mccray MD Endocrinology 07/23/18 Panfilo Oreilly MD [address] [facility] [place] 715341 Home Care Provider Family Medicine 03/05/23 Chris Gill MD [address] [place] [place], [place] 558[address] Referring Internal Medicine 04/24/23 [facility] 12/17/17 [facility] Wound Center 07/23/18 [place] [facility] Patients 06/20/20 Team Status: Active [...] Dr. Belem Aponte , Attending Provider Active Bail Agent Relationship Specialty Start Date End Date Panfilo Oreilly MD [address] [place], [place] [phone] PCP - General Family Medicine 02/12/17 06/22/23 Shreya Mccray MD [address] [place], [place] 360611 Endocrinology 07/23/18 Panfilo Oreilly MD [address] [place], [place] 14845691 Home Care Provider Family Medicine 03/05/23 Chris Gill MD [address] [place], [place] 137301 Referring Internal Medicine 04/24/23 [facility] 12/17/17 [facility] Wound Center 07/23/18 [place] [facility] Patients 06/20/20 Bail Agent Relationship Specialty Start Date End Date Shreya Mccray MD Endocrinology 07/23/18 Panfilo Oreilly MD [address] [place], [place] [id number] Home Care Provider Family Medicine 03/05/23 Chris Gill MD [address] [place] [place], [place] 826720 [phone] Referring Internal Medicine 04/24/23 [facility] 12/17/17 [facility] Wound Center 07/23/18 [place] [facility] Patients 06/20/20 Bail Agent Relationship Specialty Start Date End Date Shreya Mccray MD Endocrinology 07/23/18 Panfilo Oreilly MD [address] [place], [place] 370111 Home Care Provider Family Medicine 03/05/23 Chris Gill MD [address] [place], [place] 378379 [phone] Referring Internal Medicine 04/24/23 [facility] 12/17/17 [facility] Wound Center 07/23/18 [place] [facility] Patients 06/20/20 Bail Agent Relationship Specialty Start Date End Date Shreya Mccray MD Endocrinology 07/23/18 Panfilo Oreilly MD [address] [facility] [place] [address] Home Care Provider Family Medicine 03/05/23 Chris Gill MD [address] [place], [place] 48183281 [phone] Referring Internal Medicine 04/24/23 [facility] 12/17/17 [facility] Wound Center 07/23/18 [place] [facility] Patients 06/20/20 Team Status: Active [...] Dr. Eulogio Jiang DO Emergency Provider Active Bail Agent Relationship Specialty Start Date End Date Panfilo Oreilly MD [address] [place] [address] PCP - General Family Medicine 02/12/17 06/22/23 Shreya Mccray MD [address] [place], [place] 874341 Endocrinology 07/23/18 Brandee Cot[place] (Bridge Inspector) [address] [place] [address] Consulting Endocrinology 11/09/19 04/23/23 Annie Borges [facility] [address] [place] [address] Transitional Care Pharmacist Pharmacy 02/21/23 03/22/23 Carlos Cline, LORENZO [address] [place] [address] Primary Care Electric Meter Inspector Internal Medicine 02/21/23 03/23/23 Panfilo Oreilly MD [address] [place], [place] [id number] Home Care Provider Family Medicine 03/05/23 Bharat Gardner, LORENZO [address] [place] [address] Glass Technologist Post Acute Care 02/21/23 04/23/23 Ling Neville MD [address] [facility] [place] [address] Referring Internal Medicine 03/05/23 04/23/23 Bharat Gardner, LORENZO [address] [place] [address] Glass Technologist Post Acute Care 03/06/23 05/01/23 Chris Gill MD [address] [place], [place] 510671 Referring Internal Medicine 04/24/23 [facility] 12/17/17 [facility] Wound Center 07/23/18 [facility] Patients 06/20/20 Team Status: Inactive Member Role Status Dates Delmy Solorzano MD Primary Care Provider Active Dr. Eulogio Jiang DO Attending Provider, Emergency Pr ovider Active Bail Agent Relationship Specialty Start Date End Date Panfilo Oreilly MD [address] [place], [place] 837161 PCP - General Family Medicine 02/12/17 06/22/23 Shreya Mccray MD [address] [place], [place] 290401 Endocrinology 07/23/18 Berlin Dumont MD [address] [place] [address] Specialty Art Conservator Pulmonary Disease 12/23/18 03/04/23 Brandee Cot[place] (Bridge Inspector), OIL TANK CAR CLEANER [address] [place], [place] 645661 Consulting Endocrinology 11/09/19 04/23/23 Berlin Dumont MD [address] [place] [address] Consulting Pulmonary Disease 11/12/19 03/04/23 Robert Sanchez, [facility] [address] [place] [address] Pharmacist Pharmacy 09/06/21 03/04/23 [facility] 12/17/17 [facility] Wound Center 07/23/18 [facility] Patients 06/20/20 Bail Agent Relationship Specialty Start Date End Date Panfilo Oreilly MD [address] [place] [address] PCP - General Family Medicine 02/12/17 06/22/23 Shreya Mccray MD [address] [place] [address] Endocrinology 07/23/18 Berlin Dumont MD [address] [place] [address] Specialty Art Conservator Pulmonary Disease 12/23/18 03/04/23 Brandee Cot[place], OIL TANK CAR CLEANER [address] [place] [address] Consulting Endocrinology 11/09/19 04/23/23 Berlin Dumont MD [address] [place], [place] 382401 Consulting Pulmonary Disease 11/12/19 03/04/23 Robert Sanchez, [facility] [address] [address] Pharmacist Pharmacy 09/06/21 03/04/23 [employer] 12/17/17 [facility] Wound Center 07/23/18 [facility] Patients 06/20/20 Bail Agent Relationship Specialty Start Date End Date Panfilo Oreilly MD [address] [facility] [address] PCP - General Family Medicine 02/12/17 06/22/23 Shreya Mccray MD [address] [facility] [address] Endocrinology 07/23/18 Berlin Dumont MD [address] [place] [address] Specialty Art Conservator Pulmonary Disease 12/23/18 03/04/23 Brandee Cotter, [employer] [address] [place], [place] [id number] Consulting Endocrinology 11/09/19 04/23/23 Berlin Dumont MD [address] [place], [place] [address] Consulting Pulmonary Disease 11/12/19 03/04/23 [employer] 12/17/17 [facility] 07/23/18 [facility] 06/20/20 Team Status: Active [...] Practitioner Active Start: August 17, 2025 Dr. lIan Meza DPM Nurse Practitioner Active Start: August [...] section and content) DATE CREATED AUTHOR 12/11/2022 [facility] DATE CREATED AUTHOR AUTHOR'S ORGANIZ ATION 02/21/2023 [facility] DATE CREATED AUTHOR AUTHOR'S ORGANIZ ATION 06/13/2025 [facility] DATE CREATED AUTHOR AUTHOR'S ORGANIZ ATION 07/17/2025 [facility] DATE CREATED AUTHOR AUTHOR'S ORGANIZ ATION 10/13/2025 [facility] FOR RECORDS PERTAINING TO PATIENTS WHO ARE [...] BE BASED ON THE PRIMARY CLINICAL RECORDS. [employer] provides no warranty or guarantee of the accuracy or completeness of information in this document.
[2025-11-01] MEDS: Propofol 10MG/Ml 1,000 MG/100 ML Bottle 29.2 MG CONT INF (00:58)
[2025-11-01] MEDS: 0.9% Normal Saline (1000mL) 1,000 ML 1000 ML IV (01:04)
--- NOTE | 2025-11-01 01:06 | PCM.HOSP.N ---
Hospitalist Note Pt received in ICU bed 8, noted downtrending BP from the ER systolics charted in the 120s. 64/49 lowest, reviewed with hospitalist Dr. Mora, ordered 25g albumin IV, stopped propofol, and started dexmedetomidine. She has received 1 L normal saline and is scheduled to receive an additional 1 L. No additional fluids due to HF, last echo 1 year ago 11/13/2024 with estimated EF of 55% and no evidence for diastolic dysfunction. BP 92/43, MAP 56. Okay to start low-dose norepinephrine through PIV if needed.
[2025-11-01 01:34] LABS: Base Excess 5 mmol/L (-2 to +2); FI02 100.0; PEEP 8; PO2 165 mmHG (75-100); RR 14; SITE L Brach; SO2 99 % (94-98)
[2025-11-01] MEDS: Albumin Human 25% (100 mL) 25 GM/100 ML BAG IV (01:44)
[2025-11-01] MEDS: dexMEDEtomidine 400 MCG in 0.9% Normal Saline (100mL Bag) 96 ML 24.4 MCG CONT INF (01:45)
[2025-11-01] MEDS: 0.9% Saline Lock 10 ML Syringe IV ×4 (01:57→21:43)
[2025-11-01] MEDS: Chlorhexidine 15 ML PO ×3 (02:11→20:30)
[2025-11-01] MEDS: CHLORHEXIDINE GLUC 2% CLOTH 1 EACH TOWELETTE TOPICAL ×3 (02:12→21:43)
[2025-11-01 02:21] LABS: Troponin T High Sens 4 HR 59 ng/L (<=14)
--- NOTE | 2025-11-01 03:06 | PCMCONS.TICU ---
HPI Consult Data Date of Consult: 11/01/25 HPI Narrative Reason for Consultation: respiratory failure HPI Narrative: MACARIO OVERTON, is a 50 F who presents to the ed with altered mental status. has had multiple admission with intubation. is on 4L at home. worsening status in the er and given obtundation, was intubated. initial pH 7.39 with a pco2 of 57. however hypoxic and and obtunded so was not placed on bipap [facility] Medical History Morbid obesity MRSA (methicillin resistant staph aureus) culture positive Cellulitis of leg MRSA cellulitis of left foot Arthritis Non-smoker CHF (congestive heart failure) History of diabetes mellitus Anemia Hypoxia Venous stasis dermatitis of both lower extremities BMI 60.0-69.9, adult Noncompliance with CPAP treatment Acute on chronic respiratory failure with hypoxia and hypercapnia Perianal abscess Type 2 diabetes mellitus with hyperglycemia Contusion of knee, right Chronic diastolic (congestive) heart failure Depression Diabetes GERD (gastroesophageal reflux disease) BiPAP (biphasic positive airway pressure) dependence Sleep apnea On home oxygen therapy Smoker COPD (chronic obstructive pulmonary disease) Hypertension Congestive heart failure KERRY (acute kidney injury) Chronic respiratory failure with hypoxia Opiate overdose History of left heart catheterization (LHC) (~01/05/19) Type 2 diabetes mellitus Old myocardial infarction Essential hypertension Restrictive lung disease secondary to obesity Dyspnea on exertion Pulmonary embolism Hidradenitis Non-healing open wound of left groin Open wound of vulva with complication Necrotizing soft tissue infection Abscess of vulva Soft tissue abscess of inguinal region Respiratory failure with hypoxia Abscess Hyperglycemia due to type 2 diabetes mellitus NSTEMI (non-ST elevated myocardial infarction) Tobacco abuse Hyperlipidemia Morbid obesity History of MRSA infection Anxiety 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 Home Medications ?Medication ?Instructions ?Recorded ?Last Taken ?Type multivit-iron 18 mg-folic acid 400 1 ea PO DAILY supplement 03/26/17 07/14/23 History mcg-calcium 500 mg-minerals tablet omeprazole 40 mg capsule,delayed 40 mg PO DAILY GERD 12/15/18 07/14/23 History release loratadine 10 mg tablet 10 mg PO DAILY Allergies 03/01/20 07/14/23 History apixaban 5 mg tablet 5 mg PO BID blood thinner 08/20/20 07/14/23 History diltiazem HCl 120 mg 120 mg PO DAILY heart rate 08/20/20 07/14/23 History capsule,extended release 24 hr lisinopril 10 mg tablet 10 mg PO DAILY blood pressure 03/26/21 07/14/23 History metformin 500 mg tablet,extended 1,000 mg PO DAILY diabetes 03/26/21 07/14/23 History release 24 hr metoprolol succinate 25 mg 25 mg PO DAILY blood pressure 03/26/21 07/14/23 History tablet,extended release 24 hr atorvastatin 80 mg tablet 80 mg PO QHS cholesterol 02/07/22 07/14/23 History furosemide 40 mg tablet 40 mg PO DAILY diuretic 09/22/22 07/14/23 History albuterol sulfate 2.5 mg/3 mL 2.5 mg inhalation Q2H PRN SOB 12/09/22 07/10/23 History (0.083 %) solution for nebulization fenofibrate nanocrystallized 145 145 mg PO DAILY CHOLESTEROL 12/09/22 07/14/23 History mg tablet insulin glargine U-300 conc 300 104 unit subcut BID diabetes 07/14/23 07/13/23 History unit/mL (3 mL) subcutaneous pen (Toujeo Max U-300 SoloStar) duloxetine 60 mg capsule,delayed 60 mg PO DAILY 11/09/24 Unknown History release ergocalciferol (vitamin D2) 1,250 1,250 mcg PO QWEEK vitamin 11/09/24 Unknown History mcg (50,000 unit) capsule (Vitamin D2) ferrous sulfate 325 mg (65 mg 325 mg PO DAILY supplement 11/09/24 Unknown History iron) tablet (FeroSul) lorazepam 1 mg tablet 1 mg PO TID anxiety 11/09/24 Unknown History methocarbamol 750 mg tablet 1,500 mg PO TID muscle spasm 08/16/25 Unknown History oxycodone 15 mg tablet 15 mg PO Q6H PRN PRN pain 08/16/25 Unknown History pregabalin 150 mg capsule 150 mg PO TID pain 08/16/25 Unknown History semaglutide 2 mg/dose (8 mg/3 mL) 2 mg subcut QWEEK diabetes 08/16/25 Unknown History subcutaneous pen injector (Ozempic) diazepam 5 mg tablet (Valium) 5 mg PO TID PRN muscle spasm 5 10/28/25 Unknown Rx days #15 tabs insulin lispro 100 unit/mL 20 unit subcut TID hyperglycemia 10/28/25 Unknown History subcutaneous pen (Humalog KwikPen (U-100) Insulin) potassium chloride 20 mEq 20 meq PO DAILY hypokalemia 11/01/25 Unknown History tablet,extended release(part/cryst) Allergy/AdvReac Type Severity Reaction Status Date / Time cyclobenzaprine HCl (From Allergy Hives Verified 10/31/25 20:29 Flexeril) venlafaxine (From Effexor) AdvReac Severe hives Verified 10/31/25 20:29 Family History Father CVA (cerebral vascular accident) Heart disease Diabetes Mother Thyroid disorder Surgical History History of delivery H/O arthroscopic knee surgery History of cholecystectomy Social History household members: none Smoking Status: Current every day smoker tobacco type: e-cigarettes how long ago did patient quit smokin PPD smoker, quit x 1 year approximately. second hand exposure: Yes alcohol intake: never substance use type: does not use caffeine: Yes Type: carbonated beverages Number of servings: 1 and coffee Number of servings: 1 ROS Review of Systems ROS Unobtainable: due to endotracheal tube Objective Data Objective Data Vital Signs: Vital Signs Last response Temperature 37.7 C H 11/01/25 03:00 Temperature Source Core 11/01/25 03:00 Pulse Rate 71 11/01/25 03:00 Respiratory Rate 23 H 11/01/25 03:00 Respiratory Effort Mechanically Ventilated 11/01/25 00:45 Respiratory Depth Normal 11/01/25 00:45 Respiratory Pattern Normal 11/01/25 00:45 Blood Pressure 98/53 L 11/01/25 03:00 Blood Pressure Mean 68 11/01/25 03:00 Blood Pressure Source Monitor 11/01/25 03:00 Blood Pressure Position Semi-Fowlers 11/01/25 03:00 Blood Pressure Location Left Forearm 11/01/25 03:00 Pulse Ox 95 11/01/25 03:00 Oxygen Delivery Method Mechanical Ventilator 11/01/25 03:00 Oxygen Flow Rate (L/min) 10 10/31/25 20:43 Fraction of Inspired Oxygen (FIO2) 70 11/01/25 03:00 I&O: I&O Last 24 Hours 10/31/25 10/31/25 11/01/25 11:59 23:59 11:59 Intake Total 84.93 / 84.93 1377.91 / 1377.91 Balance 84.93 / 84.93 1377.91 / 1377.91 I&O: Total Stay 10/31/25 20:24 thru 11/01/25 02:30 Intake Total 1462.84 Balance 1462.84 Current Meds Ordered / Administered: Current meds ordered / Administered Generic Name Dose Route Start Last Admin Trade Name Freq PRN Reason Stop Dose Admin Apixaban 5 mg 11/01/25 10:00 Apixaban 5 Mg Tablet PO BID KIAN Chlorhexidine Gluconate 15 ml 11/01/25 10:00 11/01/25 02:11 Chlorhexidine 15 Ml PO 15 ml BID KIAN Administration Chlorhexidine Gluconate 1 each 11/01/25 10:00 11/01/25 02:12 Chlorhexidine Gluc 2% Cloth 1 Each Towelette TOPICAL 1 each DAILY KIAN Administration Glucagon 1 mg 11/01/25 00:28 Glucagon 1 Mg/Ml Syringe IM X1 PRN Hypoglycemia Protocol Propofol 1,000 mg in 100 mls @ 11.694 mls/hr 10/31/25 20:55 11/01/25 02:30 Diprivan CONT INF 10 mcg/kg/min .Q8H34M KIAN 11.7 mls/hr Protocol Titration 10 MCG/KG/MIN Fentanyl 100 mls @ 2.5 mls/hr 10/31/25 23:50 11/01/25 02:30 CONT INF 125 mcg/hr UD KIAN 12.5 mls/hr Protocol Titration 25 MCG/HR Doxycycline Hyclate 100 mg/ 250 mls @ 250 mls/hr 11/01/25 10:00 Sodium Chloride IV Q12 KIAN Ceftriaxone Sodium 2 gm/ 50 mls @ 100 mls/hr 11/01/25 22:00 Sodium Chloride IV Q24H KIAN Dextrose 250 mls @ 0 mls/hr 11/01/25 00:28 Dextrose 10%-Water IV .Q0M PRN HYPOGLYCEMIA Protocol As Directed Sodium Chloride 250 mls @ 15 mls/hr 11/01/25 00:55 IV .[id number] PRN Saline Flush Sodium Chloride 250 mls @ 15 mls/hr 11/01/25 00:55 IV .[id number] PRN Additional IVPB Infusion Dexmedetomidine HCl 400 mcg/ 100 mls @ 24.363 mls/hr 11/01/25 01:00 11/01/25 02:30 Sodium Chloride CONT INF 0.8 mcg/kg/hr .Q4H7M KIAN 39 mls/hr Protocol Titration 0.5 MCG/KG/HR Norepinephrine Bitartrate 8 mg 250 mls @ 9.375 mls/hr 11/01/25 03:05 / Sodium Chloride CONT INF .[id number] [facility] Protocol 5 MCG/MIN Famotidine 20 mg/ Sodium 10 mls @ 300 mls/hr 11/01/25 10:00 Chloride IV Q24 [facility] Influenza Virus Vacc Trival Recomb 45 mcg 11/02/25 10:00 Flu Vaccine (6mos Up) 45 Mcg/0.5 Ml Syringe IM 11/02/25 10:01 .ONCE ONE Insulin Human Lispro 0 unit 11/01/25 06:00 Insulin Lispro 100 Unit/Ml Insuln.Pen SC Q6 [facility] Protocol Sodium Chloride 10 - 40 ml 11/01/25 00:55 11/01/25 01:57 0.9% Saline Lock 10 Ml Syringe IV 10 ml UD PRN Administration SALINE FLUSH Physical Exam Const General Appearance: patient mechanically ventilated HEENT normocephalic Eyes EOMs intact bilaterally Neck supple Lymph Lymphatic: no lymphadenopathy noted Resp Auscultation: rhonchi Cardio regular rate and regular rhythm GI soft to palpation Extremity General Extremity: edema; Negative for clubbing Skin no rashes or lesions noted Neuro Sensorium / Orientation: sedated on vent Lab / Micro Data Attestation: I reviewed the patient's lab results. 10/31/25 20:58 10/31/25 20:58 Labs: Laboratory Results - last 24 hr 10/31/25 20:58: WBC 16.9 H, RBC 3.87 L, Hgb 10.6 L, Hct 35.2 L, MCV 91.0, MCH 27.4, MCHC 30.1 L, RDW Std Deviation 44.9 H, RDW Coeff of Darrion 13.6, Plt Count 233, MPV 9.9, Immature Gran % (Auto) 0.900, Neut % (Auto) 81.9 H, Lymph % (Auto) 10.0 L, [place] % (Auto) 6.1, Eos % (Auto) 0.6, Baso % (Auto) 0.5, Absolute Neuts (auto) 13.9 H, Absolute Lymphs (auto) 1.69, Nucleated RBC % 0.1, PT 15.3 H, INR 1.2, APTT 34.0, Sodium 139, Potassium 4.4, Chloride 96 L, Carbon Dioxide 29.9, Anion Gap 12, BUN 26 H, Creatinine 0.91, Estim Creat Clear Calc 133.87, Est GFR (MDRD) Non-Af 77, BUN/Creatinine Ratio 28.6 H, Glucose 146 H, Lactic Acid < 1.0, Calcium 8.1, Total Bilirubin 0.45, AST 31, ALT 28, Alkaline Phosphatase 64, Total Creatine Kinase 149, Troponin T High Sens 39 H D, Total Protein 7.4, Albumin 3.9, Globulin 3.5, Albumin/Globulin Ratio 1.1, Triglycerides 129 10/31/25 21:33: Urine Color Yellow, Urine Clarity Cloudy, Urine pH 6.0, Ur Specific [place] 1.015, Urine Protein 100 H, Urine Glucose (UA) 100 H, Urine Ketones Negative, Urine Occult Blood 150 H, Urine Nitrite Positive H, Urine Bilirubin Negative, Urine Urobilinogen 1 H, Ur Leukocyte Esterase 500 H, Urine RBC 0-5 SEEN, Urine WBC >100 SEEN, Ur Squamous Epith Cells 0-5 SEEN, Urine Bacteria 3+, Urine Mucus 0 SEEN 10/31/25 22:53: Troponin T Hi Sens 2 Hr 53 H 11/01/25 00:58: POC Glucose 145 H 11/01/25 01:27: Troponin T Hi Sens 4Hr 59 H* ABG Data ABG results: ABG 10/31/25 11/01/25 20:47 01:30 Specimen Type ART ART Sample Site L Radial L Brach pH 7.39 7.36 Bicarbonate Actual 35.2 H 30.8 H Total CO2 37 33 Base Excess 10 H 5 H O2 Saturation 71 L 99 H O2 % 6.0 100.0 ABG pCO2 57.7 H 54.8 H ABG pO2 39 L* 165 H Meño Test Positive N/A Respiration Rate 14 O2 Delivery Device Cannula Adult Vent Vent Mode Not entered AC Tidal Volume 450.0 POC PEEP 8 Crit Call To/Read Back Yes Blood Gas Notified Whom [facility] Blood Gas Notified Time 20:48:31 Attestation: I personally reviewed and interpreted this ABG as follows: Interpretation: chronic respiratory acidosis and metabolic compensation Imaging Radiology Impression Chest X-Ray 10/31/25 21:45 IMPRESSION: 1. Endotracheal tube tip 2.5 cm above the anitra. 2. Enteric tube terminates appropriately within the stomach. 3. Cardiomegaly with slightly increased vascular congestion and edema. Reading Location: [id number] Assessment and Plan . Assessment and plan: impression: -acute respiratory failure -severe sepsis -morbid obesity -uti -ams -chronic hypercarbiac and hypoxic respiratory failure -dm -chf plans: -admit to the icu -on vent, adjust for fio2, pH -reduce peep to 6 to help -levoohed prn if map below 65 -broad spectrum abx -follow up cx but appears to be a uti -abcde -fentanyl, precedex -continue eliquis -pepcid Critical Care Time: 60 minute The entirety of this encounter was done via Telemedicine Charges/Coding TeleMed TeleMed: TeleMed Modifer 95 Multi Select Codes TeleMed TeleMed: TeleMed Modifer 95
[2025-11-01] MEDS: dexMEDEtomidine 1,000 MCG in 0.9% Normal Saline (250mL Bag) 240 ML 63.3 MCG CONT INF (03:51)
[2025-11-01 03:52] LABS: Hematocrit 31.4 % (37-47); Hemoglobin 9.3 g/dL (12.0-15.0); Immature Granulocytes Count 0.100 X10^3/uL (0.0-0.0); Mean Corp Hgb Conc 29.6 g/dL (32-36); Mean Corpuscular Volume 92.1 fL (81-99); Mean Platelet Vol. 10.0 fl (6.2-12.0); NRBC Flagged by Analyzer 0 % (0-5); Platelet Count 224 K/mm3 (150-450); RBC Distribution Width CV 13.8 % (11.6-14.6); RBC Distribution Width SD 47.1 fl (35.1-43.9); Red Blood Count 3.41 M/mm3 (4.2-5.4); White Blood Count 15.3 K/mm3 (4.4-11.0)
[2025-11-01] MEDS: Norepinephrine 8 MG in 0.9% Normal Saline (250mL Bag) 242 ML 9.4 MG CONT INF (03:52)
[2025-11-01 04:34] LABS: Anion Gap 12 (5-15); BUN 28 mg/dL (4-19); BUN/Creat Ratio 22.3 RATIO (10-20); Calcium,Total 6.5 mg/dL (7.6-11.0); Carbon Dioxide 26.2 mmol/L (21.0-32.0); Chloride 105 mmol/L (98-108); Estimated Creatinine Clearance 96.26 ml/min (50-250); Glucose 172 mg/dL (70-99); Potassium 3.6 mmol/L (3.3-5.1)
--- NOTE | 2025-11-01 05:55 | RAD_ITS ---
PROCEDURE: CHEST 1 VIEW (PORTABLE) 11/01/2025 REASON FOR EXAM: INTUBATED TECHNIQUE: Frontal view of the chest. COMPARISON: 10/31/2025 FINDINGS: Stable cardiomegaly and pulmonary venous congestion changes. Bilateral perihilar and lower lung zones faint infiltrates versus volume overloaded changes. Stable osseous structures. Endotracheal tube is seen in satisfactory placement. Nasogastric tube is seen extending below the stomach. RAD/Chest 1 View (Portable) IMPRESSION: Stable findings. No new acute findings Reading Location[facility] [address]
--- NOTE | 2025-11-01 08:20 | PCM.PN.HOSP ---
Reason for Visit Chief Complaint: Acute encephalopathy with respiratory distress Subjective Subjective Patient is a 50-year-old lady with multiple comorbidities including class III obesity with BMI of 70.6 brought in by the family on account of decreased level of sensorium. Given new worsening mental status patient was intubated and admitted to the intensive care unit. Objective Data Objective Data Vital Signs: Vital Signs Temp Pulse Resp BP Pulse Ox O2 Del Method O2 Flow Rate 101 F H 76 16 123/60 H 97 Mechanical Ventilator 10 11/01/25 07:00 11/01/25 07:00 11/01/25 07:00 11/01/25 07:00 11/01/25 07:00 11/01/25 07:00 10/31/25 20:43 FiO2 70 11/01/25 07:00 Oxygen Flow Rate (L/min) 10 Oxygen Delivery Method Mechanical Ventilator Weight: 192.1 kg Body Mass Index (BMI) 70.5 Intake & Output: Intake and Output for Last 24 Hours 10/30/25 10/31/25 11/01/25 23:59 23:59 23:59 Intake Total 84.93 / 84.93 2821.96 / 2821.96 Output Total 425 / 425 Balance 84.93 / 84.93 2396.96 / 2396.96 Lab / Micro Data 11/01/25 03:46 11/01/25 03:46 Labs: Laboratory Results - last 24 hr 10/31/25 20:58: WBC 16.9 H, RBC 3.87 L, Hgb 10.6 L, Hct 35.2 L, MCV 91.0, MCH 27.4, MCHC 30.1 L, RDW Std Deviation 44.9 H, RDW Coeff of Darrion 13.6, Plt Count 233, MPV 9.9, Immature Gran % (Auto) 0.900, Neut % (Auto) 81.9 H, Lymph % (Auto) 10.0 L, [place] % (Auto) 6.1, Eos % (Auto) 0.6, Baso % (Auto) 0.5, Absolute Neuts (auto) 13.9 H, Absolute Lymphs (auto) 1.69, Nucleated RBC % 0.1, PT 15.3 H, INR 1.2, APTT 34.0, Sodium 139, Potassium 4.4, Chloride 96 L, Carbon Dioxide 29.9, Anion Gap 12, BUN 26 H, Creatinine 0.91, Estim Creat Clear Calc 133.87, Est GFR (MDRD) Non-Af 77, BUN/Creatinine Ratio 28.6 H, Glucose 146 H, Lactic Acid < 1.0, Calcium 8.1, Total Bilirubin 0.45, AST 31, ALT 28, Alkaline Phosphatase 64, Total Creatine Kinase 149, Troponin T High Sens 39 H D, Total Protein 7.4, Albumin 3.9, Globulin 3.5, Albumin/Globulin Ratio 1.1, Triglycerides 129 10/31/25 21:33: Urine Color Yellow, Urine Clarity Cloudy, Urine pH 6.0, Ur Specific [place] 1.015, Urine Protein 100 H, Urine Glucose (UA) 100 H, Urine Ketones Negative, Urine Occult Blood 150 H, Urine Nitrite Positive H, Urine Bilirubin Negative, Urine Urobilinogen 1 H, Ur Leukocyte Esterase 500 H, Urine RBC 0-5 SEEN, Urine WBC >100 SEEN, Ur Squamous Epith Cells 0-5 SEEN, Urine Bacteria 3+, Urine Mucus 0 SEEN 10/31/25 22:53: Troponin T Hi Sens 2 Hr 53 H 11/01/25 00:58: POC Glucose 145 H 11/01/25 01:27: Troponin T Hi Sens 4Hr 59 H* 11/01/25 03:46: WBC 15.3 H, RBC 3.41 L, Hgb 9.3 L, Hct 31.4 L, MCV 92.1, MCH 27.3, MCHC 29.6 L, RDW Std Deviation 47.1 H, RDW Coeff of Darrion 13.8, Plt Count 224, MPV 10.0, Immature Gran % (Auto) 0.700, Neut % (Auto) 82.3 H, Lymph % (Auto) 10.3 L, [place] % (Auto) 5.9, Eos % (Auto) 0.3, Baso % (Auto) 0.5, Absolute Neuts (auto) 12.6 H, Absolute Lymphs (auto) 1.58, Nucleated RBC % 0, Sodium 143, Potassium 3.6, Chloride 105, Carbon Dioxide 26.2, Anion Gap 12, BUN 28 H, Creatinine 1.25 H, Estim Creat Clear Calc 96.26, Est GFR (MDRD) Non-Af 53 L, BUN/Creatinine Ratio 22.3 H, Glucose 172 H, Calcium 6.5 L* 11/01/25 05:18: POC Glucose 232 H ABG Data ABG results: ABG 10/31/25 11/01/25 20:47 01:30 Specimen Type ART ART Sample Site L Radial L Brach pH 7.39 7.36 Bicarbonate Actual 35.2 H 30.8 H Total CO2 37 33 Base Excess 10 H 5 H O2 Saturation 71 L 99 H O2 % 6.0 100.0 ABG pCO2 57.7 H 54.8 H ABG pO2 39 L* 165 H Meño Test Positive N/A Respiration Rate 14 O2 Delivery Device Cannula Adult Vent Vent Mode Not entered AC Tidal Volume 450.0 POC PEEP 8 Crit Call To/Read Back Yes Blood Gas Notified Whom [facility] Notified Time 20:48:31 Radiography Diagnostic Testing: Radiology Impression Chest X-Ray 10/31/25 21:45 IMPRESSION: 1. Endotracheal tube tip 2.5 cm above the anitra. 2. Enteric tube terminates appropriately within the stomach. 3. Cardiomegaly with slightly increased vascular congestion and edema. Reading Location: [id number] Chest X-Ray 11/01/25 05:55 IMPRESSION: Stable findings. No new acute findings Reading [facility] Physical Exam Narrative GENERAL: Sedated on the vent HEENT: Atraumatic; normocephalic EYES; Anicteric, Normal Conjunctiva NECK; supple, normal thyroid, RESPIRATORY: Diminished to auscultation CARDIOVASCULAR: Regular S1 S2, GI: soft, normoactive bowel sounds, : No Renal angle tenderness; EXTREMITIES: Bilateral stasis dermatitis, eschar on the dorsal surface of the left great MUSCULOSKELETAL: no muscle wasting NEURO: On the vent unable to assess SKIN: Stasis dermatitis involving both lower extremities PSYCH; unable to assess Assessment & Plan Assessment/Plan (1) Complicated urinary tract infection: (2) Acute hypotension: (3) Acute encephalopathy: (4) Community acquired pneumonia: (5) Sepsis: (6) Acute on chronic respiratory failure with hypoxia and hypercapnia: (7) Diabetes mellitus type 2, insulin dependent: (8) Morbid obesity: PLAN: Plan Patient is a 50-year-old lady with multiple comorbidities including class III obesity with BMI of 70.6 brought in by the family on account of decreased level of sensorium. Given new worsening mental status patient was intubated and admitted to the intensive care unit. 1. Acute hypoxic respiratory failure ? Multifactorial including CHF, obesity hypoventilation syndromeAs well as suspected pneumonia. Checks x-ray obtained on admission demonstrated stable cardiomegaly, pulmonary vascular congestion as well as bilateral perihilar lower lung zone infiltrate. Patient was intubated in the ED prior to patient being admitted. Subsequent vent management deferred to surgical forceps fabricator 2. Septic shock ? Secondary to combination of acute cystitis, pneumonia as patient was managed per protocol did respond to IV fluid resuscitation. Patient had to be started on Levophed following her intubation 3. Acute on chronic congestive heart failure with preserved ejection fraction ? Patient most recent echo from 11/12/2024 demonstrated EF of 55%. Patient has been placed on a monitored bed treatment initiated with low-sodium diet, fluid restriction, strict input and output, daily weight as well as furosemide 4. Acute cystitis ? Patient started on broad-spectrum antibiotic therapy with ceftriaxone urine culture sent 5. Pneumonia ? With suspected gram-positive organisms patient is on doxycycline as well as ceftriaxone cultures were sent on admission patient presented with respiratory failure, was intubated and placed on mechanical ventilation 6. Hypocalcemia ? Corrected per protocol repeat calcium levels ordered for a.m. 7. Acute kidney injury ? Patient creatinine from 08/19/2025 was 0.91 creatinine on admission was 1.25 patient is on fluids will repeat BMP ordered for a.m. 8. Diabetes mellitus type 2 with complications including peripheral neuropathy ? Oral agents held placed on Accu-Cheks Q6 with sliding scale coverage 9. Essential hypertension ? Patient blood pressure medications held given low blood pressure initially on presentation 10. History of VTE ? Patient is on systemic anticoagulation with apixaban this was continued on admission 11. GERD ? On PPI 12. Subclinical hypothyroidism (new diagnosis) ? Patient had been started on levothyroxine during her previous admission in August however levothyroxine was not on her home meds 13. Dyslipidemia ?Patient is on statin therapy, continued at home dose 14. Anemia ? Secondary to chronic disorder monitoring H&H and transfuse if patient becomes symptomatic or hemoglobin falls below 7 14. Class III obesity with BMI of 70 ? Complicating care; Patient is on semaglutide as outpatient 15. .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 ? Consistent use of PAP therapy encouraged 16. Depression with anxiety ? Patient is on duloxetine as well as diazepam as needed held given her presentation 17. DVT prophylaxis ? Patient is on apixaban Time spent in the patient's overall evaluation,decision-making process, review of diagnostic data, adjustment of management, discussion with other providers, nursing nursing and ancillary staff involved in patient's care documentation, 55 Minutes Charges/Coding Visit Charges Inpatient E&M: 94001 Subs Hosp L3
[2025-11-01] MEDS: Famotidine 200 MG/20 ML MDV 20 MG in 0.9% Normal Saline (Pres. free 8 ML 300 MG IV (08:35)
[2025-11-01] MEDS: dexMEDEtomidine 1,000 MCG in 0.9% Normal Saline (250mL Bag) 240 ML 48 MCG CONT INF (08:37)
[2025-11-01] MEDS: fentaNYL drip 100 ML 12.5 MCG CONT INF ×3 (09:00→23:25)
--- NOTE | 2025-11-01 09:55 | PCM.PN.BLA ---
Progress Note The patient is a 50-year-old female who was admitted to the hospital after presenting with altered mental status in the setting of obstructive sleep apnea and alveolar hypoventilation secondary to obesity, with PAP noncompliance, complicated by suspected UTI. The patient was ultimately intubated as a consequence of the aforementioned. She will be continued on assist-control mode of mechanical ventilation. Antimicrobials will be continued pending culture results. Appropriate ICU prophylaxis will be continued. Precedex and fentanyl will be utilized for sedation. Tentatively, we will plan to begin spontaneous awakening and breathing trials beginning tomorrow. Ultimately, the patient would be a good candidate for extubation directly to noninvasive positive pressure ventilatory support, when appropriate.
[2025-11-01] MEDS: APIXABAN 5 MG TABLET PO ×2 (11:11→21:12)
--- NOTE | 2025-11-01 11:28 | CASEMGMT ---
Social Work SW received a call from pt's Forest Pathologist w/[employer], Carolee Burns([phone]). She states pt has aides M-F for 5 hours per day, a Life Alert button and home delivered meals. She asked for an update when pt is ready to be d/c, and to fax d/c instructions to: [phone]. JOSEFA Jacobs
[2025-11-01] MEDS: Acetaminophen 650 MG/20 ML UDC GT ×3 (12:24→23:26)
--- NOTE | 2025-11-01 13:21 | CASEMGMT ---
RN CM Assessment Face to Face with patient for initial transition planning/care coordination assessment. Pt is currently sedated and intubated and unable to answer this service writer's questions for assessment. There is no family at the bedside. TC to pt's Naveed HOANG (Daughter). Naveed is agreeable to helping this RN CM for assessment. Care providers, pharmacy, and demographics verified. Admitting dx: Acute RF LACE Strata: 3 PCP: Shad Love Specialists: Naveed states that the pt has seen a a r specialist in the past but cannot recall the name Preferred Pharmacy: [facility] Insurance: [facility] DUAL COMPLETE, [place]/[employer]. See SW note regarding pt's CM Prescription Benefit: Yes LNOK: Naveed Gordon (Daughter), Remedios (Mother) Living Arrangements: Pt lives with her 13 y/o GS in a mobile home with 3 steps to enter. Naveed lives right next door on the same property and states that the GS stays with her at times too. ADLs/IADLs: Naveed states that the pt requires assistance and that family and the ACCOUNT UNDERWRITER provides this support Transportation: Naveed DME: Home oxygen through [facility]. TC to [facility] who states that the pt's current orders are for 5L continuous and bleed in through the pt's NIV. [place] states that the pt has a POC and a stationary concentrator, as well as a hospital bed. Naveed states that she, Has been fighting my mom for years about her wearing the NIV. Naveed is unsure if the pt has been wearing it or not. Naveed also states that the pt has a CBGM and a back up manual glucometer with sufficient testing supplies. Naveed states that the pt does not have a scale to weigh herself with regarding her CHF. Naveed states that the pt has a shower chair, grab bars, and rollator. HHC/SNF: Reports hx with [facility]. Denies SNF hx. Naveed states that the pt has been to the [facility] in the past Palliative Care: Noted that the pt has a hx of COPD and CHF. Naveed states that the pt has a hx with [facility] services but the pt had this cancelled. Pt?s goal: TBD Plan: TBD. Today is VD#2. Per the logistics loss prevention manager, SBT to start tomorrow. CM to follow for safe DC planning. Naveed denies further questions or concerns at this time. Dorys Morales RN CM
--- NOTE | 2025-11-01 14:45 | RAD_ITS ---
PROCEDURE: CXR FOR LINE PLACEMENT 11/01/2025 REASON FOR EXAM: PICC PLACED TECHNIQUE: Procedure Code: RADCXRLP Modality: DX Procedure: CXR FOR LINE PLACEMENT COMPARISON: Prior study done earlier in the day. FINDINGS: A left-sided PICC line catheter has been placed. The tip is at the junction of the left brachiocephalic vein and superior vena cava. Stable placement of the endotracheal tube and orogastric tube. The lungs are stable. RAD/CXR for Line Placement IMPRESSION: The tip of the left-sided PICC line catheter is at the junction of the brachioc ephalic vein and superior vena cava. Reading Location: [facility]
[2025-11-01] MEDS: dexMEDEtomidine 1,000 MCG in 0.9% Normal Saline (250mL Bag) 240 ML 33.6 MCG CONT INF (15:05)
[2025-11-01] MEDS: dexMEDEtomidine 1,000 MCG in 0.9% Normal Saline (250mL Bag) 240 ML 62.4 MCG CONT INF (20:29)
[2025-11-01] MEDS: Ceftriaxone 2 GM in 0.9% Normal Saline (50mL MB+) 50 ML IV (22:29)
[2025-11-01] MEDS: Propofol 10MG/Ml 1,000 MG/100 ML Bottle 11.5 MG CONT INF (23:05)
--- NOTE | 2025-11-01 23:47 | PCM.HOSP.N ---
Hospitalist Note Pt's BP is much improved from admission; SBP greater than 130 and MAP greater than 65 consistently throughout day. Lowest core temp documented has been 99.3f, temps greater than 101f since 0700 today. D/t possible pyrogenic effects of dexmedetomidine and w/consideration of BP improvement, Precedex drip was stopped and I restarted propofol. Pt receiving acetaminophen 650mg per GT q6h. Discussed w/.
[2025-11-01 23:53] LABS: Triglycerides 210 mg/dL
--- NOTE | 2025-11-01 23:57 | PCM.HOSP.N ---
Hospitalist Note Patient with continued fevers. Initially thought potentially related also with Precedex transitioned off. Reviewing cultures and patient with 1 of 2 positive blood cultures currently however it appears as though this is Staph epidermidis. Previous cultures however noted from a toe ulceration 10/19/2025 MRSA positive in addition to most recent urine culture from 2021 with E. coli at that time with resistance to Rocephin. Patient currently on IV Rocephin and doxycycline. To be cautious will transition to IV vancomycin and Zosyn given this history and certainly could be contributing to her presentation. Will continue to closely monitor.
[2025-11-02] VITALS (40 sets, daily range): BP systolic 133–176; BP diastolic 49–85; PULSE 59–168; RESP 14–38; TEMP 38.2–39.4; O2SAT 90–98; BMI 70.2
[2025-11-02 00:07] LABS: CPK Total, Creatine Kinase 10952 U/L (24-195)
[2025-11-02] MEDS: Piperacil/Tazobactam 3.375 GM in 0.9% Normal Saline (50mL MB+) 50 ML IV ×4 (00:14→20:35)
[2025-11-02] MEDS: Vancomycin HCl 2,000 MG in 0.9% Normal Saline (500mL Bag) 500 ML 250 MG IV (01:41)
[2025-11-02] MEDS: 0.9% Normal Saline (250mL Bag) 250 ML 15 ML IV (01:42)
[2025-11-02] MEDS: Propofol 10MG/Ml 1,000 MG/100 ML Bottle 46.1 MG CONT INF (01:42)
[2025-11-02] MEDS: 0.9% Saline Lock 10 ML Syringe IV ×4 (01:42→20:39)
[2025-11-02] MEDS: Propofol 10MG/Ml 1,000 MG/100 ML Bottle 57.6 MG CONT INF (03:19)
--- NOTE | 2025-11-02 03:27 | PCM.RX.CS ---
Consult Antibiotic Management Pharmacy has been consulted to manage selected antibiotic: Vancomycin Type of Intervention Type of Consult: New start Labs Labs: Sodium 143 mmol/L (133-145) 11/01/25 03:46 Potassium 3.6 mmol/L (3.3-5.1) 11/01/25 03:46 Chloride 105 mmol/L (98-108) 11/01/25 03:46 Carbon Dioxide 26.2 mmol/L (21.0-32.0) 11/01/25 03:46 Anion Gap 12 (5-15) 11/01/25 03:46 BUN 28 mg/dL (4-19) H 11/01/25 03:46 Creatinine 1.25 mg/dL (0.70-1.20) H 11/01/25 03:46 Est GFR (MDRD) Non-Af 53 (>60) L 11/01/25 03:46 BUN/Creatinine Ratio 22.3 RATIO (10-20) H 11/01/25 03:46 Glucose 172 mg/dL (70-99) H 11/01/25 03:46 Microbiology Microbiology: Microbiology 10/31/25 21:50 Blood Culture (Wb) - Arm Left Blood Culture - Preliminary 10/31/25 21:38 Blood Culture (Wb) - Right Hand Bacteria Detection (PCR) - Preliminary Staphylococcus epidermidis 10/31/25 21:38 Blood Culture (Wb) - Right Hand Blood Culture - Preliminary 11/01/25 15:25 Mucosa - Nasopharyngeal Coronavirus COVID-19 PCR - Final 11/01/25 15:25 Mucosa - Nasopharyngeal Respiratory Panel (PCR) - Final 10/31/25 21:40 Sputum, Induced/Lukens Gram Stain - Final Dosing Weight Weight used for dosin.1 kg Estimated Creatinine Clearance Estimated Creatinine Clearance: 96.26 Goal Trough Goal Trough: 15-20 mcg/mL Pharmacy Plan for Drug Dosing Pharmacy Plan for Drug Dosing: Pharmacy Service will continue to monitor and adjust dosing as required. LOADING DOSE 2000MG GIVEN 11/02 @ 0141. START 1250MG Q8H AND DRAW TROUGH PRIOR TO 4TH DOSE Follow-Up Labs Follow-Up Labs: Trough: Vancomycin Date/Time Labs Ordered Labs to be done on [date and time ordered]: 11/03 @ 0130
[2025-11-02 04:01] LABS: Hematocrit 32.1 % (37-47); Hemoglobin 9.6 g/dL (12.0-15.0); Immature Granulocytes Count 0.090 X10^3/uL (0.0-0.0); Mean Corp Hgb Conc 29.9 g/dL (32-36); Mean Corpuscular Volume 90.4 fL (81-99); Mean Platelet Vol. 10.4 fl (6.2-12.0); NRBC Flagged by Analyzer 0 % (0-5); Platelet Count 197 K/mm3 (150-450); RBC Distribution Width CV 13.6 % (11.6-14.6); RBC Distribution Width SD 45.3 fl (35.1-43.9); Red Blood Count 3.55 M/mm3 (4.2-5.4); White Blood Count 11.9 K/mm3 (4.4-11.0)
[2025-11-02] MEDS: Acetaminophen 650 MG/20 ML UDC GT ×3 (04:15→22:37)
[2025-11-02] MEDS: fentaNYL drip 100 ML 20 MCG CONT INF ×2 (04:17→08:50)
[2025-11-02 04:26] LABS: Anion Gap 10 (5-15); BUN 27 mg/dL (4-19); BUN/Creat Ratio 26.9 RATIO (10-20); Calcium,Total 7.5 mg/dL (7.6-11.0); Carbon Dioxide 29.0 mmol/L (21.0-32.0); Chloride 101 mmol/L (98-108); Estimated Creatinine Clearance 117.92 ml/min (50-250); Glucose 245 mg/dL (70-99); Magnesium 1.5 mg/dL (1.5-2.2); Potassium 4.0 mmol/L (3.3-5.1)
[2025-11-02] MEDS: Propofol 10MG/Ml 1,000 MG/100 ML Bottle 57.3 MG CONT INF ×5 (05:11→12:24)
--- NOTE | 2025-11-02 05:49 | PN.CC_ITS ---
Assessment & Plan Assessment/Plan (1) Acute on chronic respiratory failure with hypoxia and hypercapnia: PLAN: Plan RECOMMENDATIONS: 1. Continue assist-control mode mechanical ventilation. Wean FiO2 and PEEP as tolerated. 2. Continue empiric antimicrobials, pending culture results. 3. Continue propofol and fentanyl for sedation. Monitor triglyceride levels closely. Initiate Seroquel twice daily. 4. Continue Eliquis per home regimen. 5. Continue appropriate GI prophylaxis. 6. Okay to initiate tube feeding today for nutritional support. IMPRESSIONS: 1. Acute on chronic combined respiratory failure Most likely multifactorial in etiology with underlying alveolar hypoventilation secondary to obesity, obstructive sleep apnea with PAP noncompliance, pulmonary hypertension and pneumonia contributing. At the present time, the patient will be continued on assist-control mode of mechanical ventilation. Goal is to wean FiO2 and PEEP to maintain saturations at or above 90%. Cultures are currently pending. Antimicrobials will be continued. The patient has been extremely difficult to sedate. She will be continued on propofol and fentanyl for now. Seroquel will be initiated. If the patient remains agitated, ketamine can be started. 2. Sepsis Clinical concern for underlying UTI versus pneumonia as contributing etiology. The patient is currently hemodynamically stable, without the need for vasopressor support. Plan to continue antimicrobials, pending infectious workup. 3. Encephalopathy Most likely toxic/metabolic in etiology in the setting of sepsis and hypercarbia related to noncompliance with noninvasive ventilator support. Plan to continue supportive care as noted above. 4. History of restrictive lung disease secondary to obesity/history of pulmonary embolism/obstructive sleep apnea/tobacco dependency Complicates care, management, recovery and prognosis. Continue systemic anticoagulation per home regimen. Weight loss is imperative. Okay to initiate tube feeding today for nutritional support. TIME: 38 minutes of critical care time, independent of procedures, was spent addressing the patient's acute on chronic combined respiratory failure, sepsis, encephalopathy, review of all data and collaboration with the care team. Subjective Subjective The patient was seen and examined at the bedside this morning. Events from the last 24 hours have been reviewed. The patient is currently febrile but otherwise hemodynamically stable on assist-control mode mechanical ventilation with an FiO2 requirement of 50% and PEEP of 5. The patient's sedation was changed to propofol and fentanyl over concerns that the Precedex was causing fevers. The patient is currently documented to be overall net +2 L for the hospitalization. White blood cell count this morning was noted to be 12,000 with a hemoglobin of 9.6 g/dL and platelet count of 197,000. Chemistry profile was within normal limits. Objective Data Objective Data The patient's most recent lab work, culture data and imaging studies have all been personally reviewed. Surface echocardiogram from October 2024 demonstrated normal LV size and function with an ejection fraction of 55%. Respiratory viral panel was negative. COVID PCR was negative. Blood, urine and sputum cultures are pending. Vital Signs: Vital Signs Temp Pulse Resp BP Pulse Ox O2 Del Method O2 Flow Rate 102.2 F H 75 21 H 156/66 H 94 Mechanical Ventilator 10 11/02/25 04:00 11/02/25 04:00 11/02/25 04:00 11/02/25 04:00 11/02/25 04:00 11/02/25 04:00 10/31/25 20:43 FiO2 60 11/02/25 04:00 Oxygen Flow Rate (L/min) 10 Oxygen Delivery Method Mechanical Ventilator Weight: 421 lb 4.854 oz Body Mass Index (BMI) 70.2 Intake & Output: Intake and Output for Last 24 Hours 10/31/25 11/01/25 11/02/25 23:59 23:59 23:59 Intake Total 84.93 / 84.93 4456.25 / 4480.12 1036.05 / 1036.05 Output Total 3150 / 3150 Balance 84.93 / 84.93 1306.25 / 1330.12 1036.05 / 1036.05 Lab / Micro Data Attestation: I reviewed the patient's lab results. 11/02/25 03:55 11/02/25 03:55 Labs: Laboratory Results - last 24 hr 11/01/25 11:10: POC Glucose 244 H 11/01/25 17:43: POC Glucose 206 H 11/01/25 23:10: POC Glucose 220 H 11/01/25 23:15: Total Creatine Kinase 59296 H, Triglycerides 210 H 11/02/25 03:55: WBC 11.9 H, RBC 3.55 L, Hgb 9.6 L, Hct 32.1 L, MCV 90.4, MCH 27.0, MCHC 29.9 L, RDW Std Deviation 45.3 H, RDW Coeff of Darrion 13.6, Plt Count 197, MPV 10.4, Immature Gran % (Auto) 0.800, Neut % (Auto) 80.9 H, Lymph % (Auto) 12.7 L, Hoke % (Auto) 4.9, Eos % (Auto) 0.2, Baso % (Auto) 0.5, Absolute Neuts (auto) 9.7 H, Absolute Lymphs (auto) 1.51, Nucleated RBC % 0, Sodium 140, Potassium 4.0, Chloride 101, Carbon Dioxide 29.0, Anion Gap 10, BUN 27 H, Creatinine 1.01, Estim Creat Clear Calc 117.92, Est GFR (MDRD) Non-Af 69, B UN/Creatinine Ratio 26.9 H, Glucose 245 H, Calcium 7.5 L, Phosphorus 1.6 L, Magnesium 1.5 Micro: Microbiology 10/31/25 21:50 Blood Culture (Wb) - Arm Left Blood Culture - Preliminary 10/31/25 21:38 Blood Culture (Wb) - Right Hand Bacteria Detection (PCR) - Preliminary Staphylococcus epidermidis 10/31/25 21:38 Blood Culture (Wb) - Right Hand Blood Culture - Preliminary 11/01/25 15:25 Mucosa - Nasopharyngeal Coronavirus COVID-19 PCR - Final 11/01/25 15:25 Mucosa - Nasopharyngeal Respiratory Panel (PCR) - Final 10/31/25 21:40 Sputum, Induced/Lukens Gram Stain - Final Radiography Diagnostic Testing: Radiology Impression Chest X-Ray 11/01/25 14:45 IMPRESSION: The tip of the left-sided PICC line catheter is at the junction of the brachiocephalic vein and superior vena cava. Reading Location: [facility] Physical Exam Const Constitutional Narrative: Intubated, sedated and mechanically ventilated. Super morbidly obese. HEENT head/scalp atraumatic and moist oral mucous membranes Mouth: endotracheal tube in place and OG tube in place Eyes PERRL, EOMs intact bilaterally and conjunctivae normal Neck supple Neck Narrative: Large neck circumference with redundant soft tissue. General: trachea midline Chest inspection of chest normal Resp Auscultation: diminished lung sounds; Negative for rales, rhonchi or wheezes Cardio S1 normal heart sound and S2 normal heart sound Rate: tachycardic GI normal to inspection, nondistended, normoactive bowel sounds Extremity no clubbing, cyanosis or edema Skin General Skin Exam: venous stasis and dermatitis Neuro Sensorium / Orientation: sedated on vent Charges/Coding Procedures Hospitalists Procedures: 05803 Critical Care 1st Hr
--- NOTE | 2025-11-02 05:52 | PCM.PN.HOSP ---
Reason for Visit Chief Complaint: Acute encephalopathy with respiratory distress Subjective Subjective Patient remains on the vent. Has fever with temperature of 102.2 this a.m.. Patient was reported to be restless throughout the whole night despite being on max dose of propofol as well as fentanyl. An order was given for patient to receive 1mg of hydromorphone bolus Objective Data Objective Data Vital Signs: Vital Signs Temp Pulse Resp BP Pulse Ox O2 Del Method O2 Flow Rate 102.2 F H 75 21 H 156/66 H 94 Mechanical Ventilator 10 11/02/25 04:00 11/02/25 04:00 11/02/25 04:00 11/02/25 04:00 11/02/25 04:00 11/02/25 04:00 10/31/25 20:43 FiO2 60 11/02/25 04:00 Oxygen Flow Rate (L/min) 10 Oxygen Delivery Method Mechanical Ventilator Weight: 191.1 kg Body Mass Index (BMI) 70.2 Intake & Output: Intake and Output for Last 24 Hours 10/31/25 11/01/25 11/02/25 23:59 23:59 23:59 Intake Total 84.93 / 84.93 4456.25 / 4480.12 1036.05 / 1036.05 Output Total 3150 / 3150 Balance 84.93 / 84.93 1306.25 / 1330.12 1036.05 / 1036.05 Lab / Micro Data 11/02/25 03:55 11/02/25 03:55 Labs: Laboratory Results - last 24 hr 11/01/25 11:10: POC Glucose 244 H 11/01/25 17:43: POC Glucose 206 H 11/01/25 23:10: POC Glucose 220 H 11/01/25 23:15: Total Creatine Kinase 67871 H, Triglycerides 210 H 11/02/25 03:55: WBC 11.9 H, RBC 3.55 L, Hgb 9.6 L, Hct 32.1 L, MCV 90.4, MCH 27.0, MCHC 29.9 L, RDW Std Deviation 45.3 H, RDW Coeff of Darrion 13.6, Plt Count 197, MPV 10.4, Immature Gran % (Auto) 0.800, Neut % (Auto) 80.9 H, Lymph % (Auto) 12.7 L, Cooke % (Auto) 4.9, Eos % (Auto) 0.2, Baso % (Auto) 0.5, Absolute Neuts (auto) 9.7 H, Absolute Lymphs (auto) 1.51, Nucleated RBC % 0, Sodium 140, Potassium 4.0, Chloride 101, Carbon Dioxide 29.0, Anion Gap 10, BUN 27 H, Creatinine 1.01, Estim Creat Clear Calc 117.92, Est GFR (MDRD) Non-Af 69, BUN/Creatinine Ratio 26.9 H, Glucose 245 H, Calcium 7.5 L, Phosphorus 1.6 L, Magnesium 1.5 Micro: Microbiology 10/31/25 21:50 Blood Culture (Wb) - Arm Left Blood Culture - Preliminary 10/31/25 21:38 Blood Culture (Wb) - Right Hand Bacteria Detection (PCR) - Preliminary Staphylococcus epidermidis 10/31/25 21:38 Blood Culture (Wb) - Right Hand Blood Culture - Preliminary 11/01/25 15:25 Mucosa - Nasopharyngeal Coronavirus COVID-19 PCR - Final 11/01/25 15:25 Mucosa - Nasopharyngeal Respiratory Panel (PCR) - Final 10/31/25 21:40 Sputum, Induced/Lukens Gram Stain - Final Radiography Diagnostic Testing: Radiology Impression Chest X-Ray 11/01/25 14:45 IMPRESSION: The tip of the left-sided PICC line catheter is at the junction of the brachiocephalic vein and superior vena cava. Reading Location: [facility] Physical Exam Narrative GENERAL: Patient restless on the vent HEENT: Atraumatic; normocephalic EYES; Anicteric, Normal Conjunctiva NECK; supple, normal thyroid, RESPIRATORY: Diminished to auscultation CARDIOVASCULAR: Regular S1 S2, GI: soft, normoactive bowel sounds, : No Renal angle tenderness; EXTREMITIES: Bilateral stasis dermatitis, eschar on the dorsal surface of the left great MUSCULOSKELETAL: no muscle wasting NEURO: On the vent unable to assess SKIN: Stasis dermatitis involving both lower extremities PSYCH; unable to assess Assessment & Plan Assessment/Plan (1) Complicated urinary tract infection: (2) Acute hypotension: (3) Acute encephalopathy: (4) Community acquired pneumonia: (5) Sepsis: (6) Acute on chronic respiratory failure with hypoxia and hypercapnia: (7) Diabetes mellitus type 2, insulin dependent: (8) Morbid obesity: PLAN: Plan Patient is a 50-year-old lady with multiple comorbidities including class III obesity with BMI of 70.6 brought in by the family on account of decreased level of sensorium. Given new worsening mental status patient was intubated and admitted to the intensive care unit. 1. Acute hypoxic respiratory failure ? Multifactorial including CHF, obesity hypoventilation syndromeAs well as suspected pneumonia. Checks x-ray obtained on admission demonstrated stable cardiomegaly, pulmonary vascular congestion as well as bilateral perihilar lower lung zone infiltrate. Patient was intubated in the ED prior to patient being admitted. Subsequent vent management deferred to electric power line repairer ? 11/02/2025; patient remains on the vent and still restless despite being on max dose of propofol and fentanyl. An order was given for patient to receive additional bolus of Dilaudid. 2. Septic shock ? Secondary to combination of acute cystitis, pneumonia as patient was managed per protocol did respond to IV fluid resuscitation. Patient had to be started on Levophed following her intubation ? 11/02/2025 patient continues to spike fever Tmax this morning is 102.2. Blood cultures so far positive for staph epi possibly contaminant 3. Acute on chronic congestive heart failure with preserved ejection fraction ? Patient most recent echo from 11/12/2024 demonstrated EF of 55%. Patient has been placed on a monitored bed treatment initiated with low-sodium diet, fluid restriction, strict input and output, daily weight as well as furosemide 4. Acute cystitis ? Patient started on broad-spectrum antibiotic therapy with ceftriaxone urine culture sent 5. Pneumonia ? With suspected gram-positive organisms patient is on doxycycline as well as ceftriaxone cultures were sent on admission patient presented with respiratory failure, was intubated and placed on mechanical ventilation 6. Hypocalcemia ? Corrected per protocol repeat calcium levels ordered for a.m. 7. Acute kidney injury ? Patient creatinine from 08/19/2025 was 0.91 creatinine on admission was 1.25 patient is on fluids will repeat BMP ordered for a.m. 8. Diabetes mellitus type 2 with complications including peripheral neuropathy ? Oral agents held placed on Accu-Cheks Q6 with sliding scale coverage ? 11/02/2025; patient glucose control not optimal will continue with adjustment of long-acting insulin 9. Essential hypertension ? Patient blood pressure medications held given low blood pressure initially on presentation 10. History of VTE ? Patient is on systemic anticoagulation with apixaban this was continued on admission 11. GERD ? On PPI 12. Subclinical hypothyroidism (new diagnosis) ? Patient had been started on levothyroxine during her previous admission in August however levothyroxine was not on her home meds 13. Dyslipidemia ?Patient is on statin therapy, continued at home dose 14. Anemia ? Secondary to chronic disorder monitoring H&H and transfuse if patient becomes symptomatic or hemoglobin falls below 7 14. Class III obesity with BMI of 70 ? Complicating care; Patient is on semaglutide as outpatient 15. .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 ? Consistent use of PAP therapy encouraged 16. Depression with anxiety ? Patient is on duloxetine as well as diazepam as needed held given her presentation 17. DVT prophylaxis ? Patient is on apixaban 18. Hypophosphatemia ? 11/02/2025 replacement initiated Time spent in the patient's overall evaluation,decision-making process, review of diagnostic data, adjustment of management, discussion with other providers, nursing nursing and ancillary staff involved in patient's care documentation, 50 Minutes Charges/Coding Visit Charges Inpatient E&M: 63545 Subs Hosp L3
[2025-11-02] MEDS: Potassium Phosphate 40 MM in 0.9% Normal Saline (500mL Bag) 500 ML 62.5 MM IV (06:32)
--- NOTE | 2025-11-02 07:30 | NURSING ---
Dr Sanders at bedside. Notified that patient is at max rate for fentanyl and propofol drips and patient is still awake spontaneously, follows commands and answers questions. Patient is rigid and grimacing frequently, received a x1 dose of IV Dilaudid with slight relief. Dr Sanders assessed patient and started her on a spontaneous breathing trial without cessation of sedation which was tolerated well. Dr Sanders ordered to continue the sedation but decrease fentanyl and propofol drips by half and continue with breathing trial as tolerated. Marcie RT, notified of changes.
[2025-11-02] MEDS: APIXABAN 5 MG TABLET PO ×2 (08:16→20:36)
[2025-11-02] MEDS: Chlorhexidine 15 ML PO ×2 (08:16→20:40)
[2025-11-02] MEDS: Famotidine 200 MG/20 ML MDV 20 MG in 0.9% Normal Saline (Pres. free 8 ML 300 MG IV (08:17)
[2025-11-02] MEDS: Vancomycin HCl 1,250 MG in 0.9% Normal Saline (250mL Bag) 250 ML 167 MG IV ×2 (09:15→16:58)
--- NOTE | 2025-11-02 09:26 | EKG12_ITS ---
Test Reason : RVR Blood Pressure : */* mmHG Vent. Rate : 154 BPM Atrial Rate : * BPM P-R Int : * ms QRS Dur : 80 ms QT Int : 310 ms P-R-T Axes : * 0 43 degrees QTcB Int : 496 ms Critical Test Result: High HR Supraventricular tachycardia Nonspecific ST abnormality Abnormal ECG When compared with ECG of 31-Oct-2025 20:35, Nonspecific T wave abnormality now evident in Inferior leads Confirmed by Rolly Decker ([id number]), editor managing director DANIELE MALDONADO ([id number]) on 11/03/2025 5:48:16 AM Referred By: JOSE Confirmed By: Rolly Decker
--- NOTE | 2025-11-02 10:34 | RAD_ITS ---
PROCEDURE: CHEST 1 VIEW (PORTABLE) 11/02/2025 REASON FOR EXAM: DYSPNEA TECHNIQUE: Frontal view of the chest. COMPARISON: 11/01/2025. FINDINGS: No significant interval change. Prominent perihilar markings persist, likely representing peribronchial infiltrates or central pulmonary vascular congestion. The cardiac silhouette remains enlarged. Stable positioning of the ET and nasogastric tubes. RAD/Chest 1 View (Portable) IMPRESSION: As above. Reading Location: [id number]
[2025-11-02] MEDS: Vital High Protein 1,000 ML 25 ML GT (12:41)
[2025-11-02] MEDS: Propofol 10MG/Ml 1,000 MG/100 ML Bottle 34.4 MG CONT INF ×4 (15:12→22:49)
--- NOTE | 2025-11-02 22:26 | PCM.HOSP.N ---
Hospitalist Note Pt having bursts of ventricular tachycardia, ECG obtained demonstrates SVT. She has a history of sinus tachycardia, is on rate control medication diltiazem 120 mg daily, and is anticoagulated with Eliquis 5 mg twice daily. BPs have been trending upward, sedation changed today and she is currently on propofol and ketamine drips. Nursing reports that she is difficult to keep with a RASS -1 to 1. Order placed for PRN labetalol 10 mg IV every 4 as needed for SBP greater then 170 mmHg, to avoid reflex tachycardia as can occur with hydralazine.
[2025-11-03] VITALS (32 sets, daily range): BP systolic 148–195; BP diastolic 61–88; PULSE 78–157; RESP 14–31; TEMP 36.2–38.7; O2SAT 88–97; BMI 70.7
[2025-11-03] MEDS: CHLORHEXIDINE GLUC 2% CLOTH 1 EACH TOWELETTE TOPICAL (01:07)
[2025-11-03] MEDS: Propofol 10MG/Ml 1,000 MG/100 ML Bottle 34.4 MG CONT INF ×2 (01:32→04:34)
[2025-11-03 01:50] LABS: Vancomycin, Trough Level 10.2 ug/mL (5.0-15.0)
[2025-11-03] MEDS: Vancomycin HCl 1,500 MG in 0.9% Normal Saline (500mL Bag) 500 ML 250 MG IV ×3 (02:23→18:43)
--- NOTE | 2025-11-03 02:23 | PCM.RX.CS ---
Consult Antibiotic Management Pharmacy has been consulted to manage selected antibiotic: Vancomycin Type of Intervention Type of Consult: Follow-up Labs Labs: Sodium 140 mmol/L (133-145) 11/02/25 03:55 Potassium 4.0 mmol/L (3.3-5.1) 11/02/25 03:55 Chloride 101 mmol/L (98-108) 11/02/25 03:55 Carbon Dioxide 29.0 mmol/L (21.0-32.0) 11/02/25 03:55 Anion Gap 10 (5-15) 11/02/25 03:55 BUN 27 mg/dL (4-19) H 11/02/25 03:55 Creatinine 1.01 mg/dL (0.70-1.20) 11/02/25 03:55 Est GFR (MDRD) Non-Af 69 (>60) 11/02/25 03:55 BUN/Creatinine Ratio 26.9 RATIO (10-20) H 11/02/25 03:55 Glucose 245 mg/dL (70-99) H 11/02/25 03:55 Vancomycin Trough 10.2 ug/mL (5.0-15.0) 11/03/25 01:30 Microbiology Microbiology: Microbiology 10/31/25 21:50 Blood Culture (Wb) - Arm Left Blood Culture - Preliminary Staphylococcus species 10/31/25 21:38 Blood Culture (Wb) - Right Hand Bacteria Detection (PCR) - Final Staphylococcus epidermidis mecA Resistance Marker 10/31/25 21:38 Blood Culture (Wb) - Right Hand Blood Culture - Preliminary Staphylococcus epidermidis 11/01/25 09:15 Urine Catheter - Choe Urine Culture - Preliminary Presumptive E. coli 10/31/25 21:40 Sputum, Induced/Lukens Gram Stain - Final 10/31/25 21:40 Sputum, Induced/Lukens Respiratory Culture - Preliminary Appears to be normal respiratory nando. Further studies to follow. 11/01/25 15:25 Mucosa - Nasopharyngeal Coronavirus COVID-19 PCR - Final 11/01/25 15:25 Mucosa - Nasopharyngeal Respiratory Panel (PCR) - Final Dosing Weight Weight used for dosin kg Estimated Creatinine Clearance Estimated Creatinine Clearance: 118 Goal Trough Goal Trough: 15-20 mcg/mL Pharmacy Plan for Drug Dosing Pharmacy Plan for Drug Dosing: Vancomycin trough level of 10.2, drawn 8.5hrs post-dose, was below the target range of 15-20. Will increase dose to 1500mg q8h, and will draw another trough prior to fourth dose of the new regimen. Pharmacy Service will continue to monitor and adjust dosing as required. Follow-Up Labs Follow-Up Labs: Trough: Vancomycin Date/Time Labs Ordered Labs to be done on [date and time ordered]: 11/04/25 @0200
[2025-11-03] MEDS: 0.9% Saline Lock 10 ML Syringe IV ×5 (04:34→11:22)
[2025-11-03] MEDS: Piperacil/Tazobactam 3.375 GM in 0.9% Normal Saline (50mL MB+) 50 ML IV ×3 (05:01→22:24)
[2025-11-03 05:15] LABS: Hematocrit 30.4 % (37-47); Hemoglobin 9.0 g/dL (12.0-15.0); Immature Granulocytes Count 0.060 X10^3/uL (0.0-0.0); Mean Corp Hgb Conc 29.6 g/dL (32-36); Mean Corpuscular Volume 91.6 fL (81-99); Mean Platelet Vol. 10.5 fl (6.2-12.0); NRBC Flagged by Analyzer 0 % (0-5); Platelet Count 223 K/mm3 (150-450); RBC Distribution Width CV 13.9 % (11.6-14.6); RBC Distribution Width SD 46.8 fl (35.1-43.9); Red Blood Count 3.32 M/mm3 (4.2-5.4); White Blood Count 10.0 K/mm3 (4.4-11.0)
[2025-11-03] MEDS: Acetaminophen 650 MG/20 ML UDC GT ×3 (05:32→17:12)
--- NOTE | 2025-11-03 05:37 | PN.CC_ITS ---
Assessment & Plan Assessment/Plan (1) Acute on chronic respiratory failure with hypoxia and hypercapnia: PLAN: Plan RECOMMENDATIONS: 1. Continue assist-control mode mechanical ventilation. Wean FiO2 and PEEP as tolerated. 2. Continue empiric antimicrobials. Will obtain ID consultation. 3. Continue ketamine and fentanyl for sedation. Attempt to wean propofol as tolerated. Continue scheduled Seroquel. 4. Continue Eliquis per home regimen. 5. Continue appropriate GI prophylaxis. 6. Continue tube feeding for nutritional support. 7. Continue Cardizem per home regimen. If tachycardia persists, we will plan to start scheduled beta-js regimen. 8. Start scheduled IV Lasix twice daily. IMPRESSIONS: 1. Acute on chronic combined respiratory failure Most likely multifactorial in etiology with underlying alveolar hypoventilation secondary to obesity, obstructive sleep apnea with PAP noncompliance, pulmonary hypertension and pneumonia contributing. At the present time, the patient will be continued on assist-control mode of mechanical ventilation. Goal is to wean FiO2 and PEEP to maintain saturations at or above 90%. Cultures are currently pending. Antimicrobials will be continued. The patient has been extremely difficult to sedate. She will be continued on ketamine and fentanyl for sedation, with a goal to wean propofol off, if feasible. In addition, scheduled Seroquel will be continued. Appropriate ICU prophylaxis will be maintained along with tube feeding for nutritional support. Lastly, scheduled IV Lasix twice daily will be initiated. 2. Sepsis Clinical concern for underlying UTI versus pneumonia as contributing etiology, with subsequent bacteremia noted. The patient is currently hemodynamically stable, without the need for vasopressor support. Plan to continue antimicrobials, pending culture data. Will obtain ID consultation. 3. Encephalopathy Most likely toxic/metabolic in etiology in the setting of sepsis and hypercarbia related to noncompliance with noninvasive ventilator support. Plan to continue supportive care as noted above. 4. History of restrictive lung disease secondary to obesity/history of pulmonary embolism/obstructive sleep apnea/tobacco dependency Complicates care, management, recovery and prognosis. Continue systemic anticoagulation per home regimen. Weight loss is imperative. Continue tube feeding today for nutritional support. TIME: 36 minutes of critical care time, independent of procedures, was spent addressing the patient's acute on chronic combined respiratory failure, sepsis, encephalopathy, review of all data and collaboration with the care team. Subjective Subjective The patient was seen and examined at the bedside this morning. Events from the last 24 hours have been reviewed. The patient continues to have low-grade fevers but remains otherwise hemodynamically stable on assist-control mode of mechanical ventilation. Overnight, the patient continued to be tachycardic. She has been maintained on a combination of propofol, ketamine and fentanyl for sedation purposes. She is currently documented to be overall net +5.2 L for the hospitalization. White blood cell count is normal. Hemoglobin and platelet count are stable. ABG this morning was notable for a pH of 7.36 with a pCO2 of 51 and pO2 of 48. Chest x-ray from this morning demonstrated pulmonary vascular congestion. Objective Data Objective Data The patient's most recent lab work, culture data and imaging studies have all been personally reviewed. Surface echocardiogram from October 2024 demonstrated normal LV size and function with an ejection fraction of 55%. Respiratory viral panel was negative. COVID PCR was negative. Blood, urine and sputum cultures are pending. Vital Signs: Vital Signs Temp Pulse Resp BP Pulse Ox O2 Del Method O2 Flow Rate 101.1 F H 99 24 H 162/76 H 90 Mechanical Ventilator 10 11/03/25 05:00 11/03/25 05:00 11/03/25 05:00 11/03/25 05:00 11/03/25 05:00 11/03/25 05:00 10/31/25 20:43 FiO2 50 11/03/25 05:00 Oxygen Flow Rate (L/min) 10 Oxygen Delivery Method Mechanical Ventilator Weight: 424 lb 6.237 oz Body Mass Index (BMI) 70.7 Intake & Output: Intake and Output for Last 24 Hours 11/01/25 11/02/25 11/03/25 23:59 23:59 23:59 Intake Total 4456.25 / 4480.12 5868.7133 / 6212.0133 2503.31 / 2503.31 Output Total 3150 / 3150 3950 / 3950 1550 / 1550 Balance 1306.25 / 1330.12 1918.7133 / 2262.0133 953.31 / 953.31 Lab / Micro Data Attestation: I reviewed the patient's lab results. 11/03/25 05:10 11/03/25 05:10 Labs: Laboratory Results - last 24 hr 11/02/25 05:16: POC Glucose 238 H 11/02/25 12:27: POC Glucose 189 H 11/02/25 16:56: POC Glucose 226 H 11/03/25 00:29: POC Glucose 229 H 11/03/25 01:30: Vancomycin Trough 10.2 11/03/25 05:10: WBC 10.0, RBC 3.32 L, Hgb 9.0 L, Hct 30.4 L, MCV 91.6, MCH 27.1, MCHC 29.6 L, RDW Std Deviation 46.8 H, RDW Coeff of Darrion 13.9, Plt Count 223, MPV 10.5, Immature Gran % (Auto) 0.600, Neut % (Auto) 78.7 H, Lymph % (Auto) 13.6 L, [place] % (Auto) 6.1, Eos % (Auto) 0.5, Baso % (Auto) 0.5, Absolute Neuts (auto) 7.9 H, Absolute Lymphs (auto) 1.36, Nucleated RBC % 0 Micro: Microbiology 10/31/25 21:50 Blood Culture (Wb) - Arm Left Blood Culture - Preliminary Staphylococcus species 10/31/25 21:38 Blood Culture (Wb) - Right Hand Bacteria Detection (PCR) - Final Staphylococcus epidermidis mecA Resistance Marker 10/31/25 21:38 Blood Culture (Wb) - Right Hand Blood Culture - Preliminary Staphylococcus epidermidis 11/01/25 09:15 Urine Catheter - Choe Urine Culture - Preliminary Presumptive E. coli 10/31/25 21:40 Sputum, Induced/Lukens Gram Stain - Final 10/31/25 21:40 Sputum, Induced/Lukens Respiratory Culture - Preliminary Appears to be normal respiratory nando. Further studies to follow. 11/01/25 15:25 Mucosa - Nasopharyngeal Coronavirus COVID-19 PCR - Final 11/01/25 15:25 Mucosa - Nasopharyngeal Respiratory Panel (PCR) - Final Radiography Diagnostic Testing: Radiology Impression Chest X-Ray 11/02/25 10:34 IMPRESSION: As above. Reading Location: [id number] Physical Exam Const Constitutional Narrative: Intubated, sedated and mechanically ventilated. Super morbidly obese. General Appearance: ill appearing and patient mechanically ventilated HEENT head/scalp atraumatic and moist oral mucous membranes Mouth: endotracheal tube in place and OG tube in place Eyes PERRL, EOMs intact bilaterally and conjunctivae normal Neck supple Neck Narrative: Large neck circumference with redundant soft tissue. General: trachea midline Chest inspection of chest normal Resp Effort and Inspection: tachypneic Auscultation: rhonchi and diminished lung sounds; Negative for rales or wheezes Cardio S1 normal heart sound and S2 normal heart sound Rate: tachycardic GI normal to inspection, nondistended, normoactive bowel sounds Extremity no clubbing, cyanosis or edema Skin General Skin Exam: venous stasis and dermatitis Neuro Sensorium / Orientation: sedated on vent Psych Activity / Motor Behavior: restless Charges/Coding Procedures Hospitalists Procedures: 60664 Critical Care 1st Hr
[2025-11-03 05:46] LABS: Anion Gap 11 (5-15); BUN 16 mg/dL (4-19); BUN/Creat Ratio 20.0 RATIO (10-20); Calcium,Total 7.4 mg/dL (7.6-11.0); Carbon Dioxide 26.9 mmol/L (21.0-32.0); Chloride 104 mmol/L (98-108); Estimated Creatinine Clearance 149.10 ml/min (50-250); Glucose 265 mg/dL (70-99); Potassium 4.2 mmol/L (3.3-5.1)
[2025-11-03] MEDS: TITRATION PARAMETER CHANGE 1 EACH IV (06:08)
[2025-11-03] MEDS: Propofol 10MG/Ml 1,000 MG/100 ML Bottle 34.7 MG CONT INF (07:29)
--- NOTE | 2025-11-03 07:33 | RAD_ITS ---
PROCEDURE: CHEST 1 VIEW (PORTABLE) 11/03/2025 REASON FOR EXAM: RESPIRATORY FAILURE TECHNIQUE: Frontal view of the chest. COMPARISON: November 02, 2025 FINDINGS: Stable endotracheal tube tip, 2.7 cm above the anitra. Right-sided PICC line is in place. Enteric tube courses midline projects off the [id number] in the left upper quadrant. Stable bilateral vascular fullness with cardiomegaly and atheromatous changes of the aorta. Probable tiny left pleural effusion. Interstitial prominence throughout. Osseous structures are age-appropriate. RAD/Chest 1 View (Portable) IMPRESSION: Cardiomegaly with central vascular congestion, mild interstitial edema, and pro bable small left pleural effusion. Mild increased opacification of the left base over the interval. Reading Location: [id number]
--- NOTE | 2025-11-03 07:35 | EKG12_ITS ---
Test Reason : IRREGLAR Blood Pressure : */* mmHG Vent. Rate : 157 BPM Atrial Rate : 157 BPM P-R Int : 176 ms QRS Dur : 78 ms QT Int : 264 ms P-R-T Axes : * -8 66 degrees QTcB Int : 426 ms Critical Test Result: High HR Atrial fibrillation Nonspecific ST abnormality Abnormal ECG When compared with ECG of 02-Nov-2025 08:41, Nonspecific T wave abnormality no longer evident in Inferior leads Confirmed by HASMUKH LORA, LILIANA ([id number]), make up editor RANDI BROWNLEE ([id number]) on 11/04/2025 11:38:19 AM Referred By: JOSE Confirmed By: LILIANA NOE MD
[2025-11-03 07:48] LABS: Allen Test Positive; Base Excess 4 mmol/L (-2 to +2); FI02 55.0; PEEP 5; PO2 48 mmHG (75-100); RR 14; SITE L Radial; SO2 82 % (94-98)
[2025-11-03] MEDS: fentaNYL drip 100 ML 5 MCG CONT INF (07:53)
[2025-11-03] MEDS: APIXABAN 5 MG TABLET PO ×2 (08:02→22:12)
[2025-11-03] MEDS: Chlorhexidine 15 ML PO ×2 (08:02→22:13)
[2025-11-03] MEDS: Famotidine 200 MG/20 ML MDV 20 MG in 0.9% Normal Saline (Pres. free 8 ML 300 MG IV (08:09)
[2025-11-03 09:45] LABS: Triglycerides 313 mg/dL
--- NOTE | 2025-11-03 10:23 | PCM.CONS.GEN ---
Assessment & Plan Assessment/Plan (1) Complicated urinary tract infection: (2) Sepsis: PLAN: Bcx x2 with MRSE per pcr, ucx with some ecoli, sputum cx with staph aureus. Remains on vent in icu. Cont vanc/zosyn. fever curve improving, wbc improved. Will follow, thank you (3) Community acquired pneumonia: (4) Bacteremia due to coagulase-negative Staphylococcus: HPI Consult Data Date of Consult: 11/03/25 HPI Narrative Reason for Consultation: sepsis HPI Narrative: MACARIO OVERTON, is a 50 F with h/o DM, LOGAN, CKD, presented to ED 10/31 with acute onset altered mental status and resp failure. EMS called by family. CO2 was over 60 per squad. Intubated and admitted to icu, now on vanc/zosyn after initial doxy and ceftriaxone. ROS unobtainable due to mental status. [facility] Medical History Morbid obesity MRSA (methicillin resistant staph aureus) culture positive Cellulitis of leg MRSA cellulitis of left foot Arthritis Non-smoker CHF (congestive heart failure) History of diabetes mellitus Anemia Hypoxia Venous stasis dermatitis of both lower extremities BMI 60.0-69.9, adult Noncompliance with CPAP treatment Acute on chronic respiratory failure with hypoxia and hypercapnia Perianal abscess Type 2 diabetes mellitus with hyperglycemia Contusion of knee, right Chronic diastolic (congestive) heart failure Depression Diabetes GERD (gastroesophageal reflux disease) BiPAP (biphasic positive airway pressure) dependence Sleep apnea On home oxygen therapy Smoker COPD (chronic obstructive pulmonary disease) Hypertension Congestive heart failure KERRY (acute kidney injury) Chronic respiratory failure with hypoxia Opiate overdose History of left heart catheterization (LHC) (~01/05/19) Type 2 diabetes mellitus Old myocardial infarction Essential hypertension Restrictive lung disease secondary to obesity Dyspnea on exertion Pulmonary embolism Hidradenitis Non-healing open wound of left groin Open wound of vulva with complication Necrotizing soft tissue infection Abscess of vulva Soft tissue abscess of inguinal region Respiratory failure with hypoxia Abscess Hyperglycemia due to type 2 diabetes mellitus NSTEMI (non-ST elevated myocardial infarction) Tobacco abuse Hyperlipidemia Morbid obesity History of MRSA infection Anxiety 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 Home Medications ?Medication ?Instructions ?Recorded ?Last Taken ?Type multivit-iron 18 mg-folic acid 400 1 ea PO DAILY supplement 03/26/17 07/14/23 History mcg-calcium 500 mg-minerals tablet omeprazole 40 mg capsule,delayed 40 mg PO DAILY GERD 12/15/18 07/14/23 History release loratadine 10 mg tablet 10 mg PO DAILY Allergies 03/01/20 07/14/23 History apixaban 5 mg tablet 5 mg PO BID blood thinner 08/20/20 07/14/23 History diltiazem HCl 120 mg 120 mg PO DAILY heart rate 08/20/20 07/14/23 History capsule,extended release 24 hr lisinopril 10 mg tablet 10 mg PO DAILY blood pressure 03/26/21 07/14/23 History metformin 500 mg tablet,extended 1,000 mg PO DAILY diabetes 03/26/21 07/14/23 History release 24 hr metoprolol succinate 25 mg 25 mg PO DAILY blood pressure 03/26/21 07/14/23 History tablet,extended release 24 hr atorvastatin 80 mg tablet 80 mg PO QHS cholesterol 02/07/22 07/14/23 History furosemide 40 mg tablet 40 mg PO DAILY diuretic 09/22/22 07/14/23 History albuterol sulfate 2.5 mg/3 mL 2.5 mg inhalation Q2H PRN SOB 12/09/22 07/10/23 History (0.083 %) solution for nebulization fenofibrate nanocrystallized 145 145 mg PO DAILY CHOLESTEROL 12/09/22 07/14/23 History mg tablet insulin glargine U-300 conc 300 104 unit subcut BID diabetes 07/14/23 07/13/23 History unit/mL (3 mL) subcutaneous pen ([employer] Max U-300 SoloStar) duloxetine 60 mg capsule,delayed 60 mg PO DAILY 11/09/24 Unknown History release ergocalciferol (vitamin D2) 1,250 1,250 mcg PO QWEEK vitamin 11/09/24 Unknown History mcg (50,000 unit) capsule (Vitamin D2) ferrous sulfate 325 mg (65 mg 325 mg PO DAILY supplement 11/09/24 Unknown History iron) tablet (FeroSul) lorazepam 1 mg tablet 1 mg PO TID anxiety 11/09/24 Unknown History methocarbamol 750 mg tablet 1,500 mg PO TID muscle spasm 08/16/25 Unknown History oxycodone 15 mg tablet 15 mg PO Q6H PRN PRN pain 08/16/25 Unknown History pregabalin 150 mg capsule 150 mg PO TID pain 08/16/25 Unknown History semaglutide 2 mg/dose (8 mg/3 mL) 2 mg subcut QWEEK diabetes 08/16/25 Unknown History subcutaneous pen injector (Ozempic) diazepam 5 mg tablet (Valium) 5 mg PO TID PRN muscle spasm 5 10/28/25 Unknown Rx days #15 tabs insulin lispro 100 unit/mL 20 unit subcut TID hyperglycemia 10/28/25 Unknown History subcutaneous pen (Humalog KwikPen (U-100) Insulin) BIPAP -Bilevel Positive Airway LOGAN 11/01/25 Unknown History Pressure ([facility] INFORMATIONAL USE ONLY) oxygen hypoxia 11/01/25 Unknown History potassium chloride 20 mEq 20 meq PO DAILY hypokalemia 11/01/25 Unknown History tablet,extended release(part/cryst) Allergy/AdvReac Type Severity Reaction Status Date / Time cyclobenzaprine HCl (From Allergy Hives Verified 10/31/25 20:29 Flexeril) venlafaxine (From Effexor) AdvReac Severe hives Verified 10/31/25 20:29 Family History Father CVA (cerebral vascular accident) Heart disease Diabetes Mother Thyroid disorder Surgical History History of delivery H/O arthroscopic knee surgery History of cholecystectomy Social History household members: none Smoking Status: Current every day smoker tobacco type: e-cigarettes how long ago did patient quit smokin PPD smoker, quit x 1 year approximately. second hand exposure: Yes alcohol intake: never substance use type: does not use caffeine: Yes Type: carbonated beverages Number of servings: 1 and coffee Number of servings: 1 Physical Exam Const no apparent distress HEENT normocephalic and head/scalp atraumatic Eyes PERRL Neck supple and No nodes Resp Effort and Inspection: mechanically ventilated Auscultation: diminished lung sounds Cardio no murmurs Rate: tachycardic GI GI Narrative: distended, somewhat firm Extremity General Extremity: Negative for edema Skin Skin Narrative: Dry lesion L foot Neuro Neuro Narrative: sedated Lab / Micro Data Attestation: I reviewed the patient's lab results. 11/03/25 05:10 11/03/25 05:10 Labs: Laboratory Results - last 24 hr 11/02/25 12:27: POC Glucose 189 H 11/02/25 16:56: POC Glucose 226 H 11/03/25 00:29: POC Glucose 229 H 11/03/25 01:30: Vancomycin Trough 10.2 11/03/25 05:10: WBC 10.0, RBC 3.32 L, Hgb 9.0 L, Hct 30.4 L, MCV 91.6, MCH 27.1, MCHC 29.6 L, RDW Std Deviation 46.8 H, RDW Coeff of Darrion 13.9, Plt Count 223, MPV 10.5, Immature Gran % (Auto) 0.600, Neut % (Auto) 78.7 H, Lymph % (Auto) 13.6 L, [place] % (Auto) 6.1, Eos % (Auto) 0.5, Baso % (Auto) 0.5, Absolute Neuts (auto) 7.9 H, Absolute Lymphs (auto) 1.36, Nucleated RBC % 0, Sodium 142, Potassium 4.2, Chloride 104, Carbon Dioxide 26.9, Anion Gap 11, BUN 16, Creatinine 0.80, Estim Creat Clear Calc 149.10, Est GFR (MDRD) Non-Af 91, BUN/Creatinine Ratio 20.0, Glucose 265 H, Calcium 7.4 L, Triglycerides 313 H Micro: Microbiology 10/31/25 21:40 Sputum, Induced/Lukens Gram Stain - Final 10/31/25 21:40 Sputum, Induced/Lukens Respiratory Culture - Preliminary Staphylococcus aureus 11/01/25 09:15 Urine Catheter - Choe Urine Culture - Final Presumptive E. coli 10/31/25 21:50 Blood Culture (Wb) - Arm Left Blood Culture - Final Coag Negative Staph 10/31/25 21:38 Blood Culture (Wb) - Right Hand Bacteria Detection (PCR) - Final Staphylococcus epidermidis mecA Resistance Marker 10/31/25 21:38 Blood Culture (Wb) - Right Hand Blood Culture - Final Staphylococcus epidermidis ABG Data ABG results: ABG 11/03/25 07:46 Specimen Type ART Sample Site L Radial pH 7.36 Bicarbonate Actual 29.4 H Total CO2 31 Base Excess 4 H O2 Saturation 82 L O2 % 55.0 ABG pCO2 51.7 H ABG pO2 48 L Meño Test Positive Respiration Rate 14 O2 Delivery Device Adult Vent Vent Mode AC Tidal Volume 450.0 POC PEEP 5 Imaging Radiology Impression Chest X-Ray 11/02/25 10:34 IMPRESSION: As above. Reading Location: [id number] Chest X-Ray 11/03/25 07:33 IMPRESSION: Cardiomegaly with central vascular congestion, mild interstitial edema, and probable small left pleural effusion. Mild increased opacification of the left base over the interval. Reading Location: [id number]
--- NOTE | 2025-11-03 12:14 | PCM.PN.HOSP ---
Reason for Visit Chief Complaint: Acute encephalopathy with respiratory distress Subjective Subjective Patient seen remains on the vent arouses to sternal rub. Patient remains agitated despite ketamine being added to her sedation. Blood pressure markedly elevated at 195/87. Patient remains tachycardic with temperature of 101. Objective Data Objective Data Vital Signs: Vital Signs Temp Pulse Resp BP Pulse Ox O2 Del Method O2 Flow Rate 101.0 F H 101 H 21 H 195/87 H 97 Mechanical Ventilator 10 11/03/25 11:00 11/03/25 11:00 11/03/25 11:00 11/03/25 11:00 11/03/25 11:00 11/03/25 11:00 10/31/25 20:43 FiO2 100 11/03/25 11:00 Oxygen Flow Rate (L/min) 10 Oxygen Delivery Method Mechanical Ventilator Weight: 192.5 kg Body Mass Index (BMI) 70.7 Intake & Output: Intake and Output for Last 24 Hours 11/01/25 11/02/25 11/03/25 23:59 23:59 23:59 Intake Total 4456.25 / 4480.12 5868.7133 / 6212.0133 4477.35 / 4477.35 Output Total 3150 / 3150 3950 / 3950 0 / 2049 Balance 1306.25 / 1330.12 1918.7133 / 2262.0133 2427.35 / 2427.35 Lab / Micro Data 11/03/25 05:10 11/03/25 05:10 Labs: Laboratory Results - last 24 hr 11/02/25 12:27: POC Glucose 189 H 11/02/25 16:56: POC Glucose 226 H 11/03/25 00:29: POC Glucose 229 H 11/03/25 01:30: Vancomycin Trough 10.2 11/03/25 05:07: POC Glucose 246 H 11/03/25 05:10: WBC 10.0, RBC 3.32 L, Hgb 9.0 L, Hct 30.4 L, MCV 91.6, MCH 27.1, MCHC 29.6 L, RDW Std Deviation 46.8 H, RDW Coeff of Darrion 13.9, Plt Count 223, MPV 10.5, Immature Gran % (Auto) 0.600, Neut % (Auto) 78.7 H, Lymph % (Auto) 13.6 L, [place] % (Auto) 6.1, Eos % (Auto) 0.5, Baso % (Auto) 0.5, Absolute Neuts (auto) 7.9 H, Absolute Lymphs (auto) 1.36, Nucleated RBC % 0, Sodium 142, Potassium 4.2, Chloride 104, Carbon Dioxide 26.9, Anion Gap 11, BUN 16, Creatinine 0.80, Estim Creat Clear Calc 149.10, Est GFR (MDRD) Non-Af 91, BUN/Creatinine Ratio 20.0, Glucose 265 H, Calcium 7.4 L, Triglycerides 313 H 11/03/25 11:29: POC Glucose 302 H Micro: Microbiology 10/31/25 21:40 Sputum, Induced/Lukens Gram Stain - Final 10/31/25 21:40 Sputum, Induced/Lukens Respiratory Culture - Preliminary Staphylococcus aureus 11/01/25 09:15 Urine Catheter - Choe Urine Culture - Final Presumptive E. coli 10/31/25 21:50 Blood Culture (Wb) - Arm Left Blood Culture - Final Coag Negative Staph 10/31/25 21:38 Blood Culture (Wb) - Right Hand Bacteria Detection (PCR) - Final Staphylococcus epidermidis mecA Resistance Marker 10/31/25 21:38 Blood Culture (Wb) - Right Hand Blood Culture - Final Staphylococcus epidermidis 11/01/25 15:25 Mucosa - Nasopharyngeal Coronavirus COVID-19 PCR - Final 11/01/25 15:25 Mucosa - Nasopharyngeal Respiratory Panel (PCR) - Final ABG Data ABG results: ABG 11/03/25 07:46 Specimen Type ART Sample Site L Radial pH 7.36 Bicarbonate Actual 29.4 H Total CO2 31 Base Excess 4 H O2 Saturation 82 L O2 % 55.0 ABG pCO2 51.7 H ABG pO2 48 L Meño Test Positive Respiration Rate 14 O2 Delivery Device Adult Vent Vent Mode AC Tidal Volume 450.0 POC PEEP 5 Radiography Diagnostic Testing: Radiology Impression Chest X-Ray 11/03/25 07:33 IMPRESSION: Cardiomegaly with central vascular congestion, mild interstitial edema, and probable small left pleural effusion. Mild increased opacification of the left base over the interval. Reading Location: [facility] Physical Exam Narrative GENERAL: Patient restless on the vent HEENT: Atraumatic; normocephalic EYES; Anicteric, Normal Conjunctiva NECK; supple, normal thyroid, RESPIRATORY: Diminished to auscultation CARDIOVASCULAR: Regular S1 S2, GI: soft, normoactive bowel sounds, : No Renal angle tenderness; EXTREMITIES: Bilateral stasis dermatitis, eschar on the dorsal surface of the left great MUSCULOSKELETAL: no muscle wasting NEURO: On the vent unable to assess SKIN: Stasis dermatitis involving both lower extremities PSYCH; unable to assess Assessment & Plan Assessment/Plan (1) Complicated urinary tract infection: (2) Acute hypotension: (3) Acute encephalopathy: (4) Community acquired pneumonia: (5) Sepsis: (6) Acute on chronic respiratory failure with hypoxia and hypercapnia: (7) Diabetes mellitus type 2, insulin dependent: (8) Morbid obesity: PLAN: Plan Patient is a 50-year-old lady with multiple comorbidities including class III obesity with BMI of 70.6 brought in by the family on account of decreased level of sensorium. Given new worsening mental status patient was intubated and admitted to the intensive care unit. 1. Acute hypoxic respiratory failure ? Multifactorial including CHF, obesity hypoventilation syndromeAs well as suspected pneumonia. Checks x-ray obtained on admission demonstrated stable cardiomegaly, pulmonary vascular congestion as well as bilateral perihilar lower lung zone infiltrate. Patient was intubated in the ED prior to patient being admitted. Subsequent vent management deferred to pai gow dealer ? 11/02/2025; patient remains on the vent and still restless despite being on max dose of propofol and fentanyl. An order was given for patient to receive additional bolus of Dilaudid. ? 11/03/2025;Patient seen remains on the vent arouses to sternal rub. Patient remains agitated despite ketamine being added to her sedation. Blood pressure markedly elevated at 195/87. Patient remains tachycardic with temperature of 101. 2. Septic shock ? Secondary to combination of acute cystitis, pneumonia as patient was managed per protocol did respond to IV fluid resuscitation. Patient had to be started on Levophed following her intubation ? 11/02/2025 patient continues to spike fever Tmax this morning is 102.2. Blood cultures so far positive for staph epi possibly contaminant ? 11/03/2025; patient off Levophed and blood pressure is actually elevated.. Urine cultures positive for presumptive E. coli blood cultures was positive for coagulase-negative staph possibly contaminant and sputum cultures positive for Staph aureus. Consult was placed to ID patient has been seen by Dr. Sprague noted recommendations reviewed 3. Acute on chronic congestive heart failure with preserved ejection fraction ? Patient most recent echo from 11/12/2024 demonstrated EF of 55%. Patient has been placed on a monitored bed treatment initiated with low-sodium diet, fluid restriction, strict input and output, daily weight as well as furosemide 4. Acute cystitis with E. coli ? Patient started on broad-spectrum antibiotic therapy with urine culture sent ? 11/03/2025 patient remains on broad-spectrum antibiotic therapy 5. Pneumonia ? With suspected gram-positive organisms patient is on doxycycline as well as ceftriaxone cultures were sent on admission patient presented with respiratory failure, was intubated and placed on mechanical ventilation 6. Hypocalcemia ? Corrected per protocol repeat calcium levels ordered for a.m. 7. Acute kidney injury ? Patient creatinine from 08/19/2025 was 0.91 creatinine on admission was 1.25 patient is on fluids will repeat BMP ordered for a.m. 8. Diabetes mellitus type 2 with complications including peripheral neuropathy ? Oral agents held placed on Accu-Cheks Q6 with sliding scale coverage ? 11/02/2025; patient glucose control not optimal will continue with adjustment of long-acting insulin 9. Essential hypertension ? Patient blood pressure medications held given low blood pressure initially on presentation ? 11/03/2025; patient blood pressure markedly elevated ordered hydralazine as needed for systolic blood pressure greater than 160 if no response will consider starting Cardene drip 10. History of VTE ? Patient is on systemic anticoagulation with apixaban this was continued on admission 11. GERD ? On PPI 12. Subclinical hypothyroidism (new diagnosis) ? Patient had been started on levothyroxine during her previous admission in August however levothyroxine was not on her home meds 13. Dyslipidemia ?Patient is on statin therapy, continued at home dose 14. Anemia ? Secondary to chronic disorder monitoring H&H and transfuse if patient becomes symptomatic or hemoglobin falls below 7 14. Class III obesity with BMI of 70 ? Complicating care; Patient is on semaglutide as outpatient 15. .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 ? Consistent use of PAP therapy encouraged 16. Depression with anxiety ? Patient is on duloxetine as well as diazepam as needed held given her presentation 17. DVT prophylaxis ? Patient is on apixaban 18. Hypophosphatemia ? 11/02/2025 replacement initiated 19. intermittent A-fib Patient was started on Cardizem per G-tube. Remains on systemic anticoagulation with apixaban Time spent in the patient's overall evaluation,decision-making process, review of diagnostic data, adjustment of management, discussion with other providers, nursing nursing and ancillary staff involved in patient's care documentation, 52 Minutes Charges/Coding Visit Charges Inpatient E&M: 37219 Subs Hosp L3
[2025-11-03] MEDS: Propofol 10MG/Ml 1,000 MG/100 ML Bottle 5.8 MG CONT INF (12:33)
[2025-11-03] MEDS: Dexmedetomidine 1,000 mcg in 0.9% NS 240 mL 72.2 MCG CONT INF ×3 (14:02→21:00)
[2025-11-03] MEDS: fentaNYL drip 100 ML 20 MCG CONT INF ×2 (14:12→19:02)
[2025-11-03] MEDS: Vital High Protein 1,000 ML 45 ML GT (14:19)
--- NOTE | 2025-11-03 14:49 | NURSING ---
Throughout this morning ketamine gtt was increased with RASS +1 restless each time ketamine increased.
[2025-11-03] MEDS: Propofol 10MG/Ml 1,000 MG/100 ML Bottle 17.3 MG CONT INF (15:54)
[2025-11-03] MEDS: Propofol 10MG/Ml 1,000 MG/100 ML Bottle 23.1 MG CONT INF (22:00)
[2025-11-03] MEDS: 0.9% Normal Saline (250mL Bag) 250 ML 15 ML IV (22:09)
[2025-11-04] VITALS (33 sets, daily range): BP systolic 153–180; BP diastolic 60–82; PULSE 73–84; RESP 20–28; TEMP 36.3–39.6; O2SAT 91–97; BMI 70.7
[2025-11-04] MEDS: fentaNYL drip 100 ML 20 MCG CONT INF ×5 (00:29→21:00)
[2025-11-04] MEDS: Dexmedetomidine 1,000 mcg in 0.9% NS 240 mL 72.2 MCG CONT INF ×7 (00:42→22:00)
[2025-11-04] MEDS: Propofol 10MG/Ml 1,000 MG/100 ML Bottle 23.1 MG CONT INF ×2 (01:50→05:25)
[2025-11-04] MEDS: Vancomycin Trough/Random Due 1 LAB MC (02:03)
[2025-11-04 02:39] LABS: Vancomycin, Trough Level 16.6 ug/mL (5.0-15.0)
--- NOTE | 2025-11-04 02:55 | PCM.RX.CS ---
Consult Antibiotic Management Pharmacy has been consulted to manage selected antibiotic: Vancomycin Type of Intervention Type of Consult: Follow-up Labs Labs: Sodium 142 mmol/L (133-145) 11/03/25 05:10 Potassium 4.2 mmol/L (3.3-5.1) 11/03/25 05:10 Chloride 104 mmol/L (98-108) 11/03/25 05:10 Carbon Dioxide 26.9 mmol/L (21.0-32.0) 11/03/25 05:10 Anion Gap 11 (5-15) 11/03/25 05:10 BUN 16 mg/dL (4-19) 11/03/25 05:10 Creatinine 0.80 mg/dL (0.70-1.20) 11/03/25 05:10 Est GFR (MDRD) Non-Af 91 (>60) 11/03/25 05:10 BUN/Creatinine Ratio 20.0 RATIO (10-20) 11/03/25 05:10 Glucose 265 mg/dL (70-99) H 11/03/25 05:10 Vancomycin Trough 16.6 ug/mL (5.0-15.0) H 11/04/25 02:00 Microbiology Microbiology: Microbiology 10/31/25 21:40 Sputum, Induced/Lukens Gram Stain - Final 10/31/25 21:40 Sputum, Induced/Lukens Respiratory Culture - Preliminary Staphylococcus aureus 11/01/25 09:15 Urine Catheter - Choe Urine Culture - Final Presumptive E. coli 10/31/25 21:50 Blood Culture (Wb) - Arm Left Blood Culture - Final Coag Negative Staph 10/31/25 21:38 Blood Culture (Wb) - Right Hand Bacteria Detection (PCR) - Final Staphylococcus epidermidis mecA Resistance Marker 10/31/25 21:38 Blood Culture (Wb) - Right Hand Blood Culture - Final Staphylococcus epidermidis 11/01/25 15:25 Mucosa - Nasopharyngeal Coronavirus COVID-19 PCR - Final 11/01/25 15:25 Mucosa - Nasopharyngeal Respiratory Panel (PCR) - Final Dosing Weight Weight used for dosin kg Estimated Creatinine Clearance Estimated Creatinine Clearance: 149 Goal Trough Goal Trough: 15-20 mcg/mL Pharmacy Plan for Drug Dosing Pharmacy Plan for Drug Dosing: Vancomycin trough level of 16.6, drawn 7.25hrs post-dose, was within the target range of 15-20. Will continue dosing at 1500mg q8h, and will draw another trough level in two days. Pharmacy Service will continue to monitor and adjust dosing as required. Follow-Up Labs Follow-Up Labs: Trough: Vancomycin Date/Time Labs Ordered Labs to be done on [date and time ordered]: 11/06/25 @0200
[2025-11-04] MEDS: Vancomycin HCl 1,500 MG in 0.9% Normal Saline (500mL Bag) 500 ML 250 MG IV ×3 (03:37→18:32)
[2025-11-04 03:51] LABS: Hematocrit 30.5 % (37-47); Hemoglobin 8.9 g/dL (12.0-15.0); Immature Granulocytes Count 0.080 X10^3/uL (0.0-0.0); Mean Corp Hgb Conc 29.2 g/dL (32-36); Mean Corpuscular Volume 90.8 fL (81-99); Mean Platelet Vol. 10.7 fl (6.2-12.0); NRBC Flagged by Analyzer 0 % (0-5); Platelet Count 227 K/mm3 (150-450); RBC Distribution Width CV 14.0 % (11.6-14.6); RBC Distribution Width SD 46.5 fl (35.1-43.9); Red Blood Count 3.36 M/mm3 (4.2-5.4); White Blood Count 9.1 K/mm3 (4.4-11.0)
--- NOTE | 2025-11-04 04:20 | RAD_ITS ---
PROCEDURE: CHEST 1 VIEW (PORTABLE) 11/04/2025 REASON FOR EXAM: RESPIRATORY FAILURE TECHNIQUE: Frontal view of the chest. COMPARISON: 11/03/2025. FINDINGS: Endotracheal tube is in good position. Enteric feeding tube is in good position. Right PICC line is in good position. Increased pulmonary congestion. There is no demonstrated pleural abnormality. Enlarged cardiac silhouette. Normal mediastinum and evi. Normal visualized pulmonary arteries. Atheromatous plaques of the visualized aortic arch and descending thoracic aorta. Diffuse spondylosis of the visualized thoracic spine. Normal visualized ribs, clavicles. Degenerative joint disease. There is no demonstrated abnormality of the visualized soft tissue structures of the upper abdomen. RAD/Chest 1 View (Portable) IMPRESSION: Endotracheal tube is in good position. Enteric feeding tube is in good position. Right PICC line is in good position. Increased pulmonary congestion. Enlarged cardiac silhouette. Reading [facility]
[2025-11-04 04:53] LABS: Anion Gap 12 (5-15); BUN 19 mg/dL (4-19); BUN/Creat Ratio 21.2 RATIO (10-20); Calcium,Total 8.1 mg/dL (7.6-11.0); Carbon Dioxide 26.9 mmol/L (21.0-32.0); Chloride 106 mmol/L (98-108); Estimated Creatinine Clearance 132.53 ml/min (50-250); Glucose 350 mg/dL (70-99); Potassium 4.1 mmol/L (3.3-5.1)
[2025-11-04 05:23] LABS: Allen Test Positive; Base Excess 6 mmol/L (-2 to +2); FI02 85.0; PEEP 8; PO2 59 mmHG (75-100); RR 14; SITE L Radial; SO2 91 % (94-98)
--- NOTE | 2025-11-04 05:37 | PN.CC_ITS ---
Assessment & Plan Assessment/Plan (1) Acute on chronic respiratory failure with hypoxia and hypercapnia: PLAN: Plan RECOMMENDATIONS: 1. Continue to wean FiO2 and PEEP as tolerated. 2. Continue antimicrobials per ID recommendations. 3. Continue current sedation regimen along with scheduled Seroquel. 4. Continue Eliquis per home regimen. 5. Continue appropriate GI prophylaxis. 6. Continue tube feeding for nutritional support. 7. Continue Cardizem per home regimen. 8. Continue scheduled IV Lasix as tolerated by hemodynamics and renal function. IMPRESSIONS: 1. Acute on chronic combined respiratory failure Most likely multifactorial in etiology with underlying alveolar hypoventilation secondary to obesity, obstructive sleep apnea with PAP noncompliance, pulmonary hypertension and pneumonia contributing. At the present time, the patient will be continued on assist-control mode of mechanical ventilation. Goal is to wean FiO2 and PEEP to maintain saturations at or above 90%. Antimicrobials will be continued under the discretion of infectious diseases. The patient has been extremely difficult to sedate. She is currently requiring propofol, Precedex and fentanyl to maintain an appropriate level of sedation. In addition to the aforementioned, scheduled Seroquel will be continued. Will continue appropriate ICU prophylaxis along with tube feeding for nutritional support. IV Lasix will be continued as tolerated by hemodynamics and renal function. 2. Sepsis Clinical concern for underlying UTI versus pneumonia as contributing etiology, with subsequent bacteremia noted. The patient is currently hemodynamically stable, without the need for vasopressor support. Plan to continue antimicrobials per ID recommendations. 3. Encephalopathy Most likely toxic/metabolic in etiology in the setting of sepsis and hypercarbia related to noncompliance with noninvasive ventilator support. Plan to continue supportive care as noted above. 4. History of restrictive lung disease secondary to obesity/history of pulmonary embolism/obstructive sleep apnea/tobacco dependency Complicates care, management, recovery and prognosis. Continue systemic anticoagulation per home regimen. Weight loss is imperative. Continue tube feeding today for nutritional support. TIME: 38 minutes of critical care time, independent of procedures, was spent addressing the patient's acute on chronic combined respiratory failure, sepsis, encephalopathy, review of all data and collaboration with the care team. Subjective Subjective The patient was seen and examined at the bedside this morning. Events from the last 24 hours have been reviewed. The patient is currently afebrile, hemodynamically stable and maintaining appropriate oxygen saturations on pressure control mode of mechanical ventilation with an FiO2 requirement of 80% and PEEP of 8. White blood cell count is normal. Hemoglobin and platelet count are stable. Arterial blood gas this morning was notable for a pH of 7.4 with a pCO2 of 44 and pO2 of 59. Chemistry profile was unremarkable. Objective Data Objective Data The patient's most recent lab work, culture data and imaging studies have all been personally reviewed. Surface echocardiogram from October 2024 demonstrated normal LV size and function with an ejection fraction of 55%. Respiratory viral panel was negative. COVID PCR was negative. Blood cultures were positive for Staphylococcus epidermidis, urine cultures demonstrating growth of presumptive E. coli and sputum cultures demonstrating growth of Staphylococcus aureus. Vital Signs: Vital Signs Temp Pulse Resp BP Pulse Ox O2 Del Method O2 Flow Rate 97.3 F L 78 26 H 176/77 H 94 Mechanical Ventilator 10 11/04/25 04:00 11/04/25 04:00 11/04/25 04:00 11/04/25 04:00 11/04/25 04:00 11/04/25 04:00 10/31/25 20:43 FiO2 100 11/04/25 04:00 Oxygen Flow Rate (L/min) 10 Oxygen Delivery Method Mechanical Ventilator Weight: 424 lb 6.237 oz Body Mass Index (BMI) 70.7 Intake & Output: Intake and Output for Last 24 Hours 11/02/25 11/03/25 11/04/25 23:59 23:59 23:59 Intake Total 5868.7133 / 6212.0133 03824.71 / 82004.01 707.21 / 707.21 Output Total 3950 / 3950 7000 / 8500 2500 / 2500 Balance 1918.7133 / 2262.0133 3251.71 / 1867.01 -1792.79 / -1792.79 Lab / Micro Data Attestation: I reviewed the patient's lab results. 11/04/25 03:35 11/04/25 03:35 Labs: Laboratory Results - last 24 hr 11/03/25 05:07: POC Glucose 246 H 11/03/25 05:10: Sodium 142, Potassium 4.2, Chloride 104, Carbon Dioxide 26.9, Anion Gap 11, BUN 16, Creatinine 0.80, Estim Creat Clear Calc 149.10, Est GFR (MDRD) Non-Af 91, BUN/Creatinine Ratio 20.0, Glucose 265 H, Calcium 7.4 L, T riglycerides 313 H 12/04/25 11:29: POC Glucose 302 H 11/03/25 17:10: POC Glucose 293 H 11/04/25 00:28: POC Glucose 293 H 11/04/25 02:00: Vancomycin Trough 16.6 H 11/04/25 03:35: WBC 9.1, RBC 3.36 L, Hgb 8.9 L, Hct 30.5 L, MCV 90.8, MCH 26.5 L , MCHC 29.2 L, RDW Std Deviation 46.5 H, RDW Coeff of Darrion 14.0, Plt Count 227, MPV 10.7, Immature Gran % (Auto) 0.900, Neut % (Auto) 76.7 H, Lymph % (Auto) 15.5 L, [place] % (Auto) 5.7, Eos % (Auto) 0.7, Baso % (Auto) 0.5, Absolute Neuts (auto) 7.0, Absolute Lymphs (auto) 1.41, Nucleated RBC % 0, Sodium 144, Potassium 4.1, Chloride 106, Carbon Dioxide 26.9, Anion Gap 12, BUN 19, Creatinine 0.90, Estim Creat Clear Calc 132.53, Est GFR (MDRD) Non-Af 78, B UN/Creatinine Ratio 21.2 H, Glucose 350 H, Calcium 8.1 Micro: Microbiology 10/31/25 21:40 Sputum, Induced/Lukens Gram Stain - Final 10/31/25 21:40 Sputum, Induced/Lukens Respiratory Culture - Preliminary Staphylococcus aureus 11/01/25 09:15 Urine Catheter - Choe Urine Culture - Final Presumptive E. coli 10/31/25 21:50 Blood Culture (Wb) - Arm Left Blood Culture - Final Coag Negative Staph 10/31/25 21:38 Blood Culture (Wb) - Right Hand Bacteria Detection (PCR) - Final Staphylococcus epidermidis mecA Resistance Marker 10/31/25 21:38 Blood Culture (Wb) - Right Hand Blood Culture - Final Staphylococcus epidermidis 11/01/25 15:25 Mucosa - Nasopharyngeal Coronavirus COVID-19 PCR - Final 11/01/25 15:25 Mucosa - Nasopharyngeal Respiratory Panel (PCR) - Final ABG Data ABG results: ABG 11/03/25 11/04/25 07:46 05:19 Specimen Type ART ART Sample Site L Radial L Radial pH 7.36 7.44 Bicarbonate Actual 29.4 H 30.3 H Total CO2 31 32 Base Excess 4 H 6 H O2 Saturation 82 L 91 L O2 % 55.0 85.0 ABG pCO2 51.7 H 44.3 ABG pO2 48 L 59 L Meño Test Positive Positive Respiration Rate 14 14 O2 Delivery Device Adult Vent Adult Vent Vent Mode AC AC/PC Tidal Volume 450.0 POC PEEP 5 8 Clinical Comments Radiography Diagnostic Testing: Radiology Impression Chest X-Ray 11/03/25 07:33 IMPRESSION: Cardiomegaly with central vascular congestion, mild interstitial edema, and probable small left pleural effusion. Mild increased opacification of the left base over the interval. Reading Location: [id number] Chest X-Ray 11/04/25 04:20 IMPRESSION: Endotracheal tube is in good position. Enteric feeding tube is in good position. Right PICC line is in good position. Increased pulmonary congestion. Enlarged cardiac silhouette. Reading Location[id number] Physical Exam Const Constitutional Narrative: Intubated, sedated and mechanically ventilated. Super morbidly obese. General Appearance: ill appearing and patient mechanically ventilated HEENT head/scalp atraumatic and moist oral mucous membranes Mouth: endotracheal tube in place and OG tube in place Eyes PERRL, EOMs intact bilaterally and conjunctivae normal Neck supple Neck Narrative: Large neck circumference with redundant soft tissue. General: trachea midline Chest inspection of chest normal Resp Auscultation: rhonchi and diminished lung sounds; Negative for rales or wheezes Cardio regular rate, regular rhythm, S1 normal heart sound and S2 normal heart sound GI normal to inspection, nondistended, normoactive bowel sounds Extremity no clubbing, cyanosis or edema Skin General Skin Exam: venous stasis and dermatitis Neuro Sensorium / Orientation: sedated on vent Psych Activity / Motor Behavior: restless Charges/Coding Procedures Hospitalists Procedures: 92531 Critical Care 1st Hr
[2025-11-04] MEDS: Piperacil/Tazobactam 3.375 GM in 0.9% Normal Saline (50mL MB+) 50 ML IV ×3 (06:40→20:57)
--- NOTE | 2025-11-04 07:38 | PCM.PN.HOSP ---
Reason for Visit Chief Complaint: Acute encephalopathy with respiratory distress Subjective Subjective Patient remains on the vent still remains agitated. Patient blood pressure still remains elevated. Chest x-ray today prior did show vascular congestion Objective Data Objective Data Vital Signs: Vital Signs Temp Pulse Resp BP Pulse Ox O2 Del Method O2 Flow Rate 97.3 F L 80 25 H 177/78 H 94 Mechanical Ventilator 10 11/04/25 04:00 11/04/25 06:00 11/04/25 07:22 11/04/25 06:00 11/04/25 06:00 11/04/25 06:00 10/31/25 20:43 FiO2 100 11/04/25 06:00 Oxygen Flow Rate (L/min) 10 Oxygen Delivery Method Mechanical Ventilator Weight: 192.4 kg Body Mass Index (BMI) 70.7 Intake & Output: Intake and Output for Last 24 Hours 11/02/25 11/03/25 11/04/25 23:59 23:59 23:59 Intake Total 5868.7133 / 6212.0133 56244.71 / 60067.01 1451.18 / 1451.18 Output Total 3950 / 3950 7000 / 8500 3050 / 3050 Balance 1918.7133 / 2262.0133 3251.71 / 1867.01 -1598.82 / -1598.82 Lab / Micro Data 11/04/25 03:35 11/04/25 03:35 Labs: Laboratory Results - last 24 hr 11/03/25 05:07: POC Glucose 246 H 11/03/25 05:10: Triglycerides 313 H 11/03/25 11:29: POC Glucose 302 H 11/03/25 17:10: POC Glucose 293 H 11/04/25 00:28: POC Glucose 293 H 11/04/25 02:00: Vancomycin Trough 16.6 H 11/04/25 03:35: WBC 9.1, RBC 3.36 L, Hgb 8.9 L, Hct 30.5 L, MCV 90.8, MCH 26.5 L, MCHC 29.2 L, RDW Std Deviation 46.5 H, RDW Coeff of Darrion 14.0, Plt Count 227, MPV 10.7, Immature Gran % (Auto) 0.900, Neut % (Auto) 76.7 H, Lymph % (Auto) 15.5 L, Lares % (Auto) 5.7, Eos % (Auto) 0.7, Baso % (Auto) 0.5, Absolute Neuts (auto) 7.0, Absolute Lymphs (auto) 1.41, Nucleated RBC % 0, Sodium 144, Potassium 4.1, Chloride 106, Carbon Dioxide 26.9, Anion Gap 12, BUN 19, Creatinine 0.90, Estim Creat Clear Calc 132.53, Est GFR (MDRD) Non-Af 78, BUN/Creatinine Ratio 21.2 H, Glucose 350 H, Calcium 8.1 11/04/25 06:46: POC Glucose 299 H Micro: Microbiology 10/31/25 21:40 Sputum, Induced/Lukens Gram Stain - Final 10/31/25 21:40 Sputum, Induced/Lukens Respiratory Culture - Preliminary Staphylococcus aureus 11/01/25 09:15 Urine Catheter - Choe Urine Culture - Final Presumptive E. coli 10/31/25 21:50 Blood Culture (Wb) - Arm Left Blood Culture - Final Coag Negative Staph 10/31/25 21:38 Blood Culture (Wb) - Right Hand Bacteria Detection (PCR) - Final Staphylococcus epidermidis mecA Resistance Marker 10/31/25 21:38 Blood Culture (Wb) - Right Hand Blood Culture - Final Staphylococcus epidermidis 11/01/25 15:25 Mucosa - Nasopharyngeal Coronavirus COVID-19 PCR - Final 11/01/25 15:25 Mucosa - Nasopharyngeal Respiratory Panel (PCR) - Final ABG Data ABG results: ABG 11/03/25 11/04/25 07:46 05:19 Specimen Type ART ART Sample Site L Radial L Radial pH 7.36 7.44 Bicarbonate Actual 29.4 H 30.3 H Total CO2 31 32 Base Excess 4 H 6 H O2 Saturation 82 L 91 L O2 % 55.0 85.0 ABG pCO2 51.7 H 44.3 ABG pO2 48 L 59 L Meño Test Positive Positive Respiration Rate 14 14 O2 Delivery Device Adult Vent Adult Vent Vent Mode AC AC/PC Tidal Volume 450.0 POC PEEP 5 8 Clinical Comments Radiography Diagnostic Testing: Radiology Impression Chest X-Ray 11/03/25 07:33 IMPRESSION: Cardiomegaly with central vascular congestion, mild interstitial edema, and probable small left pleural effusion. Mild increased opacification of the left base over the interval. Reading Location: [facility] Chest X-Ray 11/04/25 04:20 IMPRESSION: Endotracheal tube is in good position. Enteric feeding tube is in good position. Right PICC line is in good position. Increased pulmonary congestion. Enlarged cardiac silhouette. Reading Location: [place] [address] Physical Exam Narrative GENERAL: Awake on the vent HEENT: Atraumatic; normocephalic EYES; Anicteric, Normal Conjunctiva NECK; supple, normal thyroid, RESPIRATORY: Diminished to auscultation CARDIOVASCULAR: Regular S1 S2, GI: soft, normoactive bowel sounds, : No Renal angle tenderness; EXTREMITIES: Bilateral stasis dermatitis, eschar on the dorsal surface of the left great MUSCULOSKELETAL: no muscle wasting NEURO: Patient follows simple commands on the vent SKIN: Stasis dermatitis involving both lower extremities PSYCH; unable to assess Assessment & Plan Assessment/Plan (1) Complicated urinary tract infection: (2) Acute hypotension: (3) Acute encephalopathy: (4) Community acquired pneumonia: (5) Sepsis: (6) Acute on chronic respiratory failure with hypoxia and hypercapnia: (7) Diabetes mellitus type 2, insulin dependent: (8) Morbid obesity: PLAN: Plan Patient is a 50-year-old lady with multiple comorbidities including class III obesity with BMI of 70.6 brought in by the family on account of decreased level of sensorium. Given new worsening mental status patient was intubated and admitted to the intensive care unit. 1. Acute hypoxic respiratory failure ? Multifactorial including CHF, obesity hypoventilation syndromeAs well as suspected pneumonia. Checks x-ray obtained on admission demonstrated stable cardiomegaly, pulmonary vascular congestion as well as bilateral perihilar lower lung zone infiltrate. Patient was intubated in the ED prior to patient being admitted. Subsequent vent management deferred to electronic security technician ? 11/02/2025; patient remains on the vent and still restless despite being on max dose of propofol and fentanyl. An order was given for patient to receive additional bolus of Dilaudid. ? 11/03/2025;Patient seen remains on the vent arouses to sternal rub. Patient remains agitated despite ketamine being added to her sedation. Blood pressure markedly elevated at 195/87. Patient remains tachycardic with temperature of 101. ? 11/04/2025; patient remains on the vent. 2. Septic shock ? Secondary to combination of acute cystitis, pneumonia as patient was managed per protocol did respond to IV fluid resuscitation. Patient had to be started on Levophed following her intubation ? 11/02/2025 patient continues to spike fever Tmax this morning is 102.2. Blood cultures so far positive for staph epi possibly contaminant ? 11/03/2025; patient off Levophed and blood pressure is actually elevated.. Urine cultures positive for presumptive E. coli blood cultures was positive for coagulase-negative staph possibly contaminant and sputum cultures positive for Staph aureus. Consult was placed to ID patient has been seen by Dr Gonzalez,, notes and recommendations reviewed 3. Acute on chronic congestive heart failure with preserved ejection fraction ? Patient most recent echo from 11/12/2024 demonstrated EF of 55%. Patient has been placed on a monitored bed treatment initiated with low-sodium diet, fluid restriction, strict input and output, daily weight as well as furosemide 4. Acute cystitis with E. coli ? Patient started on broad-spectrum antibiotic therapy with urine culture sent ? 11/03/2025 patient remains on broad-spectrum antibiotic therapy 5. Pneumonia ? With suspected gram-positive organisms patient is on doxycycline as well as ceftriaxone cultures were sent on admission patient presented with respiratory failure, was intubated and placed on mechanical ventilation 6. Hypocalcemia ? Corrected per protocol repeat calcium levels ordered for a.m. 7. Acute kidney injury ? Patient creatinine from 08/19/2025 was 0.91 creatinine on admission was 1.25 patient is on fluids will repeat BMP ordered for a.m. 8. Diabetes mellitus type 2 with complications including peripheral neuropathy ? Oral agents held placed on Accu-Cheks Q6 with sliding scale coverage ? 11/02/2025; patient glucose control not optimal will continue with adjustment of long-acting insulin ? 11/04/2025; glucose levels still remain elevated further adjustment made to her insulin regimen 9. Essential hypertension ? Patient blood pressure medications held given low blood pressure initially on presentation ? 11/03/2025; patient blood pressure markedly elevated ordered hydralazine as needed for systolic blood pressure greater than 160 if no response will consider starting Cardene drip 10. History of VTE ? Patient is on systemic anticoagulation with apixaban this was continued on admission 11. GERD ? On PPI 12. Subclinical hypothyroidism (new diagnosis) ? Patient had been started on levothyroxine during her previous admission in August however levothyroxine was not on her home meds 13. Dyslipidemia ?Patient is on statin therapy, continued at home dose 14. Anemia ? Secondary to chronic disorder monitoring H&H and transfuse if patient becomes symptomatic or hemoglobin falls below 7 14. Class III obesity with BMI of 70 ? Complicating care; Patient is on semaglutide as outpatient 15. .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 ? Consistent use of PAP therapy encouraged 16. Depression with anxiety ? Patient is on duloxetine as well as diazepam as needed held given her presentation 17. DVT prophylaxis ? Patient is on apixaban 18. Hypophosphatemia ? 11/02/2025 replacement initiated 19. intermittent A-fib Patient was started on Cardizem per G-tube. Remains on systemic anticoagulation with apixaban Time spent in the patient's overall evaluation,decision-making process, review of diagnostic data, adjustment of management, discussion with other providers, nursing nursing and ancillary staff involved in patient's care documentation, 40 Minutes Charges/Coding Visit Charges Inpatient E&M: 75021 Subs Hosp L2
[2025-11-04] MEDS: Propofol 10MG/Ml 1,000 MG/100 ML Bottle 28.9 MG CONT INF ×4 (09:14→18:25)
[2025-11-04] MEDS: CHLORHEXIDINE GLUC 2% CLOTH 1 EACH TOWELETTE TOPICAL (09:22)
[2025-11-04] MEDS: Chlorhexidine 15 ML PO ×2 (09:22→20:17)
[2025-11-04] MEDS: TITRATION PARAMETER CHANGE 1 EACH IV (09:33)
[2025-11-04] MEDS: APIXABAN 5 MG TABLET PO ×2 (10:04→20:17)
[2025-11-04] MEDS: Famotidine 200 MG/20 ML MDV 20 MG in 0.9% Normal Saline (Pres. free 8 ML 300 MG IV (10:05)
[2025-11-04] MEDS: Insulin Glargine-YFGN 100 UNIT/ML Pen 10 UNIT SC ×2 (10:26→20:22)
--- NOTE | 2025-11-04 14:24 | PCM.PN.ID ---
Physical Exam Narrative No fever since last evening, remains on vent Const no apparent distress Resp Effort and Inspection: mechanically ventilated Auscultation: diminished lung sounds Cardio regular rate and regular rhythm GI soft to palpation, non-tender and non-distended Extremity General Extremity: edema Skin no rashes or lesions noted ID ID: Route of nutrition/ use of supplements: [] Nutritional Intake: [] IV Site: [] Choe Catheter: [] Assessment & Plan Assessment/Plan (1) Complicated urinary tract infection: (2) Sepsis: PLAN: Bcx x2 with MRSE per pcr, ucx with some ecoli, sputum cx with staph aureus. Remains on vent in icu. Cont vanc/zosyn. fever curve improving, wbc improved. Will follow (3) Community acquired pneumonia: (4) Bacteremia due to coagulase-negative Staphylococcus:
[2025-11-04] MEDS: Vital High Protein 1,000 ML 55 ML GT (15:00)
[2025-11-04] MEDS: Acetaminophen 650 MG/20 ML UDC GT ×2 (17:06→21:22)
[2025-11-04] MEDS: 0.9% Saline Lock 10 ML Syringe IV (21:29)
[2025-11-04] MEDS: Propofol 10MG/Ml 1,000 MG/100 ML Bottle 34.6 MG CONT INF (22:00)
--- NOTE | 2025-11-04 22:54 | PCM.HOSP.N ---
Hospitalist Note Tube feeding placed on hold for 2 hours, residual dropped from 300 to 150. TF restarted at 40 mL/h (down from 55 mL/h), continue programmed water flush 50 mL every 4. Single BM documented yesterday without description of size. Order placed for metoclopramide 5 mg IV every 8h in attempt to increase gut motility.
[2025-11-05] VITALS (36 sets, daily range): BP systolic 129–174; BP diastolic 49–89; PULSE 69–95; RESP 17–27; TEMP 38.1–39.6; O2SAT 88–100; BMI 69.4
[2025-11-05] MEDS: Propofol 10MG/Ml 1,000 MG/100 ML Bottle 34.6 MG CONT INF ×2 (00:31→03:22)
[2025-11-05] MEDS: Dexmedetomidine 1,000 mcg in 0.9% NS 240 mL 72.2 MCG CONT INF (01:44)
[2025-11-05] MEDS: Vancomycin HCl 1,500 MG in 0.9% Normal Saline (500mL Bag) 500 ML 250 MG IV ×3 (02:14→19:19)
[2025-11-05] MEDS: Acetaminophen 650 MG/20 ML UDC GT ×4 (02:14→23:01)
[2025-11-05] MEDS: fentaNYL drip 100 ML 20 MCG CONT INF ×5 (03:00→23:35)
[2025-11-05 04:09] LABS: Hematocrit 31.0 % (37-47); Hemoglobin 9.1 g/dL (12.0-15.0); Immature Granulocytes Count 0.110 X10^3/uL (0.0-0.0); Mean Corp Hgb Conc 29.4 g/dL (32-36); Mean Corpuscular Volume 90.9 fL (81-99); Mean Platelet Vol. 10.3 fl (6.2-12.0); NRBC Flagged by Analyzer 0.2 % (0-5); Platelet Count 235 K/mm3 (150-450); RBC Distribution Width CV 14.3 % (11.6-14.6); RBC Distribution Width SD 47.3 fl (35.1-43.9); Red Blood Count 3.41 M/mm3 (4.2-5.4); White Blood Count 9.6 K/mm3 (4.4-11.0)
[2025-11-05 04:45] LABS: Anion Gap 12 (5-15); BUN 23 mg/dL (4-19); BUN/Creat Ratio 25.8 RATIO (10-20); Calcium,Total 8.3 mg/dL (7.6-11.0); Carbon Dioxide 29.9 mmol/L (21.0-32.0); Chloride 107 mmol/L (98-108); Estimated Creatinine Clearance 133.81 ml/min (50-250); Glucose 364 mg/dL (70-99); Potassium 3.8 mmol/L (3.3-5.1)
--- NOTE | 2025-11-05 04:50 | RAD_ITS ---
PROCEDURE: CHEST 1 VIEW (PORTABLE) 11/05/2025 REASON FOR EXAM: RESPIRATORY FAILURE TECHNIQUE: Frontal view of the chest. COMPARISON: 11/04/2025. FINDINGS: Endotracheal tube is in good position. Enteric feeding tube is in good position. Right PICC line is in good position. Mild decrease in pulmonary venous congestion/infiltrates. There is no demonstrated pleural abnormality. Enlarged cardiac silhouette. Normal mediastinum and evi. Normal visualized pulmonary arteries. Atheromatous plaques of the visualized aortic arch and descending thoracic aorta. Diffuse spondylosis of the visualized thoracic spine. Normal visualized ribs, clavicles. Degenerative joint disease. There is no demonstrated abnormality of the visualized soft tissue structures of the upper abdomen. RAD/Chest 1 View (Portable) IMPRESSION: Endotracheal tube is in good position. Enteric feeding tube is in good position. Right PICC line is in good position. Mild decrease in pulmonary venous congestion/infiltrates. Reading [facility]
[2025-11-05] MEDS: 0.9% Saline Lock 10 ML Syringe IV ×6 (05:11→21:13)
[2025-11-05] MEDS: Piperacil/Tazobactam 3.375 GM in 0.9% Normal Saline (50mL MB+) 50 ML IV ×3 (05:22→21:54)
[2025-11-05] MEDS: Dexmedetomidine 1,000 mcg in 0.9% NS 240 mL 70.9 MCG CONT INF (05:32)
[2025-11-05 06:10] LABS: Allen Test Positive; Base Excess 9 mmol/L (-2 to +2); FI02 75.0; PEEP 8; PO2 61 mmHG (75-100); RR 14; SITE L Radial; SO2 92 % (94-98)
[2025-11-05] MEDS: Propofol 10MG/Ml 1,000 MG/100 ML Bottle 34 MG CONT INF (06:20)
--- NOTE | 2025-11-05 07:17 | PCM.PN.HOSP ---
Reason for Visit Chief Complaint: Acute encephalopathy with respiratory distress Subjective Subjective Patient seen remains sedated on the vent. Per nursing staff patient still remains restless. Plan is to increase patient Seroquel from 50 twice daily to 75 twice daily. Sputum culture positive for Staph aureus Objective Data Objective Data Vital Signs: Vital Signs Temp Pulse Resp BP Pulse Ox O2 Del Method O2 Flow Rate 103.2 F H 83 25 H 168/69 H 96 Mechanical Ventilator 10 11/05/25 07:00 11/05/25 07:00 11/05/25 07:00 11/05/25 07:00 11/05/25 07:00 11/05/25 07:00 10/31/25 20:43 FiO2 75 11/05/25 07:00 Oxygen Flow Rate (L/min) 10 Oxygen Delivery Method Mechanical Ventilator Weight: 189 kg Body Mass Index (BMI) 69.4 Intake & Output: Intake and Output for Last 24 Hours 11/03/25 11/04/25 11/05/25 23:59 23:59 23:59 Intake Total 45212.71 / 21143.01 5722.84 / 5899.64 1625.55 / 1625.55 Output Total 7000 / 8500 72783 / 06922 1850 / 1850 Balance 3251.71 / 1867.01 -5377.16 / -5200.36 -224.45 / -224.45 Lab / Micro Data 11/05/25 04:00 11/05/25 04:00 Labs: Laboratory Results - last 24 hr 11/04/25 10:28: POC Glucose 309 H 11/04/25 11:39: POC Glucose 293 H 11/04/25 17:47: POC Glucose 281 H 11/04/25 20:20: POC Glucose 311 H 11/05/25 00:01: POC Glucose 327 H 11/05/25 04:00: WBC 9.6, RBC 3.41 L, Hgb 9.1 L, Hct 31.0 L, MCV 90.9, MCH 26.7 L, MCHC 29.4 L, RDW Std Deviation 47.3 H, RDW Coeff of Darrion 14.3, Plt Count 235, MPV 10.3, Immature Gran % (Auto) 1.100 H, Neut % (Auto) 72.7 H, Lymph % (Auto) 19.6, Cecil % (Auto) 5.0, Eos % (Auto) 0.9, Baso % (Auto) 0.7, Absolute Neuts (auto) 7.0, Absolute Lymphs (auto) 1.88, Nucleated RBC % 0.2, Sodium 148 H, Potassium 3.8, Chloride 107, Carbon Dioxide 29.9, Anion Gap 12, BUN 23 H, Creatinine 0.88, Estim Creat Clear Calc 133.81, Est GFR (MDRD) Non-Af 81, BUN/Creatinine Ratio 25.8 H, Glucose 364 H, Calcium 8.3 11/05/25 05:46: POC Glucose 340 H Micro: Microbiology 10/31/25 21:40 Sputum, Induced/Lukens Gram Stain - Final 10/31/25 21:40 Sputum, Induced/Lukens Respiratory Culture - Final Staphylococcus aureus 11/01/25 09:15 Urine Catheter - Choe Urine Culture - Final Presumptive E. coli 10/31/25 21:50 Blood Culture (Wb) - Arm Left Blood Culture - Final Coag Negative Staph 10/31/25 21:38 Blood Culture (Wb) - Right Hand Bacteria Detection (PCR) - Final Staphylococcus epidermidis mecA Resistance Marker 10/31/25 21:38 Blood Culture (Wb) - Right Hand Blood Culture - Final Staphylococcus epidermidis 11/01/25 15:25 Mucosa - Nasopharyngeal Coronavirus COVID-19 PCR - Final 11/01/25 15:25 Mucosa - Nasopharyngeal Respiratory Panel (PCR) - Final ABG Data ABG results: ABG 11/05/25 06:06 Specimen Type ART Sample Site L Radial pH 7.44 Bicarbonate Actual 32.9 H Total CO2 34 Base Excess 9 H O2 Saturation 92 L O2 % 75.0 ABG pCO2 48.5 H ABG pO2 61 L Meño Test Positive Respiration Rate 14 O2 Delivery Device Adult Vent Vent Mode AC/PC POC PEEP 8 Radiography Diagnostic Testing: Radiology Impression Chest X-Ray 11/05/25 04:50 IMPRESSION: Endotracheal tube is in good position. Enteric feeding tube is in good position. Right PICC line is in good position. Mild decrease in pulmonary venous congestion/infiltrates. Reading Location: [place] [address] Physical Exam Narrative GENERAL: sedated on the vent HEENT: Atraumatic; normocephalic EYES; Anicteric, Normal Conjunctiva NECK; supple, normal thyroid, RESPIRATORY: Diminished to auscultation CARDIOVASCULAR: Regular S1 S2, GI: soft, normoactive bowel sounds, : No Renal angle tenderness; EXTREMITIES: Bilateral stasis dermatitis, eschar on the dorsal surface of the left great MUSCULOSKELETAL: no muscle wasting NEURO: Patient underwent SKIN: Stasis dermatitis involving both lower extremities PSYCH; unable to assess Assessment & Plan Assessment/Plan (1) Complicated urinary tract infection: (2) Acute hypotension: (3) Acute encephalopathy: (4) Community acquired pneumonia: (5) Sepsis: (6) Acute on chronic respiratory failure with hypoxia and hypercapnia: (7) Diabetes mellitus type 2, insulin dependent: (8) Morbid obesity: PLAN: Plan Patient is a 50-year-old lady with multiple comorbidities including class III obesity with BMI of 70.6 brought in by the family on account of decreased level of sensorium. Given new worsening mental status patient was intubated and admitted to the intensive care unit. 1. Acute hypoxic respiratory failure ? Multifactorial including CHF, obesity hypoventilation syndromeAs well as suspected pneumonia. Checks x-ray obtained on admission demonstrated stable cardiomegaly, pulmonary vascular congestion as well as bilateral perihilar lower lung zone infiltrate. Patient was intubated in the ED prior to patient being admitted. Subsequent vent management deferred to computer art instructor ? 11/02/2025; patient remains on the vent and still restless despite being on max dose of propofol and fentanyl. An order was given for patient to receive additional bolus of Dilaudid. ? 11/03/2025;Patient seen remains on the vent arouses to sternal rub. Patient remains agitated despite ketamine being added to her sedation. Blood pressure markedly elevated at 195/87. Patient remains tachycardic with temperature of 101. ? 11/04/2025; patient remains on the vent. ? 11/05/2025; patient still remains restless on the vent plan is to increase patient Seroquel from 50 to 75 mg twice daily 2. Septic shock ? Secondary to combination of acute cystitis, pneumonia as patient was managed per protocol did respond to IV fluid resuscitation. Patient had to be started on Levophed following her intubation ? 11/02/2025 patient continues to spike fever Tmax this morning is 102.2. Blood cultures so far positive for staph epi possibly contaminant ? 11/03/2025; patient off Levophed and blood pressure is actually elevated.. Urine cultures positive for presumptive E. coli blood cultures was positive for coagulase-negative staph possibly contaminant and sputum cultures positive for Staph aureus. Consult was placed to ID patient has been seen by Dr Gonzalez,, notes and recommendations reviewed 3. Acute on chronic congestive heart failure with preserved ejection fraction ? Patient most recent echo from 11/12/2024 demonstrated EF of 55%. Patient has been placed on a monitored bed treatment initiated with low-sodium diet, fluid restriction, strict input and output, daily weight as well as furosemide 4. Acute cystitis with E. coli ? Patient started on broad-spectrum antibiotic therapy with urine culture sent ? 11/03/2025 patient remains on broad-spectrum antibiotic therapy 5. Pneumonia with MSSA ? With suspected gram-positive organisms patient is on doxycycline as well as ceftriaxone cultures were sent on admission patient presented with respiratory failure, was intubated and placed on mechanical ventilation ? 11/05/2025; patient sputum cultures positive for MSSA patient remains on Zosyn as well as vancomycin 6. Hypocalcemia ? Corrected per protocol repeat calcium levels ordered for a.m. 7. Acute kidney injury ? Patient creatinine from 08/19/2025 was 0.91 creatinine on admission was 1.25 patient is on fluids will repeat BMP ordered for a.m. 8. Diabetes mellitus type 2 with complications including peripheral neuropathy ? Oral agents held placed on Accu-Cheks Q6 with sliding scale coverage ? 11/02/2025; patient glucose control not optimal will continue with adjustment of long-acting insulin ? 11/04/2025; glucose levels still remain elevated further adjustment made to her insulin regimen 9. Essential hypertension ? Patient blood pressure medications held given low blood pressure initially on presentation ? 11/03/2025; patient blood pressure markedly elevated ordered hydralazine as needed for systolic blood pressure greater than 160 if no response will consider starting Cardene drip 10. History of VTE ? Patient is on systemic anticoagulation with apixaban this was continued on admission 11. GERD ? On PPI 12. Subclinical hypothyroidism (new diagnosis) ? Patient had been started on levothyroxine during her previous admission in August however levothyroxine was not on her home meds 13. Dyslipidemia ?Patient is on statin therapy, continued at home dose 14. Anemia ? Secondary to chronic disorder monitoring H&H and transfuse if patient becomes symptomatic or hemoglobin falls below 7 14. Class III obesity with BMI of 70 ? Complicating care; Patient is on semaglutide as outpatient 15. .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 ? Consistent use of PAP therapy encouraged 16. Depression with anxiety ? Patient is on duloxetine as well as diazepam as needed held given her presentation 17. DVT prophylaxis ? Patient is on apixaban 18. Hypophosphatemia ? 11/02/2025 replacement initiated 19. intermittent A-fib Patient was started on Cardizem per G-tube. Remains on systemic anticoagulation with apixaban Time spent in the patient's overall evaluation,decision-making process, review of diagnostic data, adjustment of management, discussion with other providers, nursing nursing and ancillary staff involved in patient's care documentation, 38 Minutes Charges/Coding Visit Charges Inpatient E&M: 04431 Subs Hosp L2
--- NOTE | 2025-11-05 07:30 | NURSING ---
change of shift rounds
[2025-11-05] MEDS: Propofol 10MG/Ml 1,000 MG/100 ML Bottle 45.4 MG CONT INF ×5 (08:52→17:50)
[2025-11-05] MEDS: Dexmedetomidine 1,000 mcg in 0.9% NS 240 mL 61.4 MCG CONT INF (09:37)
[2025-11-05] MEDS: Chlorhexidine 15 ML PO ×2 (09:47→20:07)
[2025-11-05] MEDS: APIXABAN 5 MG TABLET PO ×2 (09:48→21:12)
[2025-11-05] MEDS: Famotidine 200 MG/20 ML MDV 20 MG in 0.9% Normal Saline (Pres. free 8 ML 300 MG IV (10:10)
[2025-11-05] MEDS: Insulin Glargine-YFGN 100 UNIT/ML Pen 10 UNIT SC (10:17)
--- NOTE | 2025-11-05 12:12 | PN.CC_ITS ---
Objective Data Objective Data Vital Signs: Vital Signs Last response 3 Temperature 39.6 C H 11/05/25 07:00 Temperature Source Oral 11/05/25 07:00 Pulse Rate 73 11/05/25 11:20 Pulse Strength Normal (2+) 11/05/25 10:00 Respiratory Rate 23 H 11/05/25 11:20 Respiratory Effort Non-Labored, Mechanically Ventilated 11/05/25 08:00 Respiratory Depth Normal 11/05/25 08:00 Respiratory Pattern Tachypnea 11/05/25 11:20 Blood Pressure 168/69 H 11/05/25 07:00 Blood Pressure Mean 102 11/05/25 07:00 Blood Pressure Source Monitor 11/05/25 07:00 Blood Pressure Position Semi-Fowlers 11/05/25 07:00 Blood Pressure Location Left Forearm 11/05/25 07:00 Pulse Ox 94 11/05/25 11:20 Oxygen Delivery Method Mechanical Ventilator 11/05/25 08:00 Oxygen Flow Rate (L/min) 10 10/31/25 20:43 Fraction of Inspired Oxygen (FIO2) 60 11/05/25 08:00 I&O: I&O Last 24 Hours 3 11/04/25 11/05/25 11/05/25 23:59 11:59 23:59 Intake Total 3574.70 / 5899.64 2245.64 / 2245.64 Output Total 5900 / 98999 4500 / 4500 Balance -2325.30 / -5200.36 -2254.36 / -2254.36 I&O: Total Stay 3 10/31/25 20:24 thru 11/05/25 11:45 Intake Total 51738.0833 Output Total 88959 Balance -1069.9167 Current Meds Ordered / Administered: Current meds ordered / Administered 3 Generic Name Dose Route Start Last Admin Trade Name Freq PRN Reason Stop Dose Admin Acetaminophen 650 mg 11/01/25 11:12 11/05/25 09:57 Acetaminophen 650 Mg/20 Ml Udc GT 650 mg Q4H PRN PRN Administration Pain 1-10 or Fever Apixaban 5 mg 11/01/25 10:00 11/05/25 09:48 Apixaban 5 Mg Tablet PO 5 mg BID KIAN Administration Chlorhexidine Gluconate 15 ml 11/01/25 10:00 11/05/25 09:47 Chlorhexidine 15 Ml PO 15 ml BID KIAN Administration Chlorhexidine Gluconate 1 each 11/01/25 10:00 11/04/25 09:22 Chlorhexidine Gluc 2% Cloth 1 Each [place] TOPICAL 1 each DAILY KIAN Administration Diltiazem HCl 120 mg 11/02/25 12:11 11/05/25 09:47 Diltiazem 60 Mg Tablet GT 120 mg DAILY KIAN Administration Protocol Furosemide 40 mg 11/03/25 10:00 11/05/25 09:48 Furosemide 40 Mg/4 Ml Vial IV 40 mg BIDLX KIAN Administration Protocol Glucagon 1 mg 11/01/25 00:28 Glucagon 1 Mg/Ml Syringe IM X1 PRN Hypoglycemia Protocol Glucagon 1 mg 11/05/25 12:01 Glucagon 1 Mg/Ml Syringe IM X1 PRN Hypoglycemia Protocol Hydralazine HCl 10 mg 11/04/25 18:05 11/05/25 05:05 Hydralazine 20 Mg/Ml Vial IV 10 mg Q6H PRN PRN Administration SBP GREATER THAN 170 Protocol Dextrose 250 mls @ 0 mls/hr 11/01/25 00:28 Dextrose 10%-Water IV .Q0M PRN HYPOGLYCEMIA Protocol As Directed Sodium Chloride 250 mls @ 15 mls/hr 11/01/25 00:55 11/04/25 17:15 IV Infused .[id number] PRN Infusion Saline Flush Sodium Chloride 250 mls @ 15 mls/hr 11/01/25 00:55 IV .[id number] PRN Additional IVPB Infusion Famotidine 20 mg/ Sodium 10 mls @ 300 mls/hr 11/01/25 10:00 11/05/25 11:00 Chloride IV Infused Q24 KIAN Infusion Propofol 1,000 mg in 100 mls @ 11.34 mls/hr 11/01/25 22:45 11/05/25 11:30 Diprivan CONT INF 40 mcg/kg/min .Q8H50M KIAN 45.4 mls/hr Protocol Titration 10 MCG/KG/MIN Vancomycin IV-PHARMACY TO DOSE 500 mls @ 250 mls/hr 11/01/25 23:56 1 each/ Sodium Chloride IV X1 PRN Rx to Dose Protocol Piperacillin Sod/Tazobactam 50 mls @ 12.5 mls/hr 11/02/25 00:00 11/05/25 10:20 Sod 3.375 gm/ Sodium Chloride IV Infused Q8 KIAN Infusion Fentanyl 100 mls @ 5 mls/hr 11/02/25 01:40 11/05/25 11:00 CONT INF 200 mcg/hr UD KIAN 20 mls/hr Protocol Titration 50 MCG/HR Enteral Nutritional Formula 1,000 mls @ 55 mls/hr 11/02/25 12:30 11/04/25 22:45 Vital High Protein GT 40 mls/hr .[id number] KIAN Infusion Vancomycin HCl 1,500 mg/ 530 mls @ 250 mls/hr 11/03/25 02:30 11/05/25 10:11 Sodium Chloride IV 250 mls/hr Q8H KIAN Administration Dexmedetomidine HCl 1,000 mcg/ 250 mls @ 23.625 mls/hr 11/03/25 13:40 11/05/25 11:30 Sodium Chloride CONT INF 1.2 mcg/kg/hr .[id number] KIAN 56.7 mls/hr Protocol Titration 0.5 MCG/KG/HR Midazolam HCl 50 mg/ Sodium 100 mls @ 2 mls/hr 11/05/25 12:00 Chloride CONT INF .Q50H KIAN Protocol 1 MG/HR Dextrose 250 mls @ 0 mls/hr 11/05/25 12:01 Dextrose 10%-Water IV .Q0M PRN HYPOGLYCEMIA Protocol As Directed Ibuprofen 400 mg 11/04/25 18:05 11/05/25 02:18 Ibuprofen 100 Mg/5 Ml Udc GT 400 mg Q6H PRN PRN Administration Pain 1-10 or Fever Influenza Virus Vacc Trival Recomb 45 mcg 11/07/25 10:00 Flu Vaccine (6mos Up) 45 Mcg/0.5 Ml Syringe IM 11/07/25 10:01 .ONCE ONE Insulin Glargine 25 unit 11/05/25 22:00 Insulin Glargine-Yfgn 100 Unit/Ml Pen SC BID KIAN Insulin Human Lispro 0 unit 11/01/25 06:00 11/05/25 05:49 Insulin Lispro 100 Unit/Ml Insuln.Pen SC 12 units Q6 KIAN Administration Protocol Labetalol HCl 10 mg 11/02/25 22:24 11/05/25 06:06 Labetalol 20 Mg/4 Ml Vial IV 10 mg Q4H PRN PRN Administration SBP GREATER THAN 170 Lisinopril 20 mg 11/04/25 12:15 11/05/25 09:50 Lisinopril 20 Mg Tablet PO 20 mg DAILY [facility] Administration Protocol Metoclopramide HCl 5 mg 11/04/25 23:00 11/05/25 05:15 Metoclopramide 10 Mg/2 Ml Vial IV 5 mg Q8 KIAN Administration Midazolam HCl 2 mg 11/05/25 11:57 Midazolam 2 Mg/2 Ml Syringe IV Q2H PRN PRN AGITATION Nystatin 1 applic 11/01/25 10:00 11/05/25 09:49 Nystatin Powder 15gm Bottle TOPICAL 1 applic BID [facility] Administration Protocol Quetiapine Fumarate 75 mg 11/05/25 14:00 Quetiapine 25 Mg Tablet PO Q8 [facility] Protocol Sodium Chloride 10 - 40 ml 11/01/25 00:55 11/05/25 10:12 0.9% Saline Lock 10 Ml Syringe IV 10 ml UD PRN Administration SALINE FLUSH Vancomycin Protocol 1 lab 11/06/25 01:00 Vancomycin Trough/Random Due MC 11/06/25 03:00 DAILY [facility] Lab / Micro Data 11/05/25 04:00 11/05/25 04:00 Labs: Laboratory Results - last 24 hr 11/04/25 17:47: POC Glucose 281 H 11/04/25 20:20: POC Glucose 311 H 11/05/25 00:01: POC Glucose 327 H 11/05/25 04:00: WBC 9.6, RBC 3.41 L, Hgb 9.1 L, Hct 31.0 L, MCV 90.9, MCH 26.7 L , MCHC 29.4 L, RDW Std Deviation 47.3 H, RDW Coeff of Darrion 14.3, Plt Count 235, MPV 10.3, Immature Gran % (Auto) 1.100 H, Neut % (Auto) 72.7 H, Lymph % (Auto) 19.6, [place] % (Auto) 5.0, Eos % (Auto) 0.9, Baso % (Auto) 0.7, Absolute Neuts (auto) 7.0, Absolute Lymphs (auto) 1.88, Nucleated RBC % 0.2, Sodium 148 H, Potassium 3.8, Chloride 107, Carbon Dioxide 29.9, Anion Gap 12, BUN 23 H, Creatinine 0.88, Estim Creat Clear Calc 133.81, Est GFR (MDRD) Non-Af 81, B UN/Creatinine Ratio 25.8 H, Glucose 364 H, Calcium 8.3 11/05/25 05:46: POC Glucose 340 H Micro: Microbiology 10/31/25 21:40 Sputum, Induced/Lukens Gram Stain - Final 10/31/25 21:40 Sputum, Induced/Lukens Respiratory Culture - Final Staphylococcus aureus ABG Data ABG results: ABG 11/05/25 06:06 Specimen Type ART Sample Site L Radial pH 7.44 Bicarbonate Actual 32.9 H Total CO2 34 Base Excess 9 H O2 Saturation 92 L O2 % 75.0 ABG pCO2 48.5 H ABG pO2 61 L Meño Test Positive Respiration Rate 14 O2 Delivery Device Adult Vent Vent Mode AC/PC POC PEEP 8 Imaging Radiology Impression Chest X-Ray 11/05/25 04:50 IMPRESSION: Endotracheal tube is in good position. Enteric feeding tube is in good position. Right PICC line is in good position. Mild decrease in pulmonary venous congestion/infiltrates. Reading Location: [place] [address] Assessment and Plan . Assessment and plan: A/P: 1. Resp Failure: acute on chronic. Hypoxemic/hypercapnic. O2 req high. Pt does not have diffuse infiltrates to suggest ARDS. Will liberalize volumes: AC 14/480/8/70. Check ABG later today as pt continues to breathe in 20s. Wean FIO2 as tolerated. 2. Fever: on broad empiric coverage(ID following). Concern for drug fever. Weaning precedex at current. 3. Sedation: on fent/propofol and precedex. Stopping precedex 2/2 fever. Add low dose versed gtt. 4. BSI: 2/2 CONS. On Vanc. ID following 5. Ecoli 1. Continue to wean FiO2 and PEEP as tolerated. 2. Continue antimicrobials per ID recommendations. 3. Continue current sedation regimen along with scheduled Seroquel. 4. Continue Eliquis per home regimen. 5. Continue appropriate GI prophylaxis. 6. Continue tube feeding for nutritional support. 7. Continue Cardizem per home regimen. 8. Continue scheduled IV Lasix as tolerated by hemodynamics and renal function. IMPRESSIONS: 1. Acute on chronic combined respiratory failure Most likely multifactorial in etiology with underlying alveolar hypoventilation secondary to obesity, obstructive sleep apnea with PAP noncompliance, pulmonary hypertension and pneumonia contributing. At the present time, the patient will be continued on assist-control mode of mechanical ventilation. Goal is to wean FiO2 and PEEP to maintain saturations at or above 90%. Antimicrobials will be continued under the discretion of infectious diseases. The patient has been extremely difficult to sedate. She is currently requiring propofol, Precedex and fentanyl to maintain an appropriate level of sedation. In addition to the aforementioned, scheduled Seroquel will be continued. Will continue appropriate ICU prophylaxis along with tube feeding for nutritional support. IV Lasix will be continued as tolerated by hemodynamics and renal function. 2. Sepsis Clinical concern for underlying UTI versus pneumonia as contributing etiology, with subsequent bacteremia noted. The patient is currently hemodynamically stable, without the need for vasopressor support. Plan to continue antimicrobials per ID recommendations. 3. Encephalopathy Most likely toxic/metabolic in etiology in the setting of sepsis and hypercarbia related to noncompliance with noninvasive ventilator support. Plan to continue supportive care as noted above. 4. History of restrictive lung disease secondary to obesity/history of pulmonary embolism/obstructive sleep apnea/tobacco dependency Complicates care, management, recovery and prognosis. Continue systemic anticoagulation per home regimen. Weight loss is imperative. Continue tube feeding today for nutritional support. TIME: Critical Care Time: The entirety of this encounter was done via Telemedicine Physical Exam Narrative intubated, sedated pupils:= o/p: ETT in place CV: RRR Chest: Diffuse wheezing on right, coarse BS Abd: obese, soft, nt ext: no c/c/e Skin: no rashes Subjective Subjective chart reviewed. High fevers today. Issues with sedation.
[2025-11-05 12:40] LABS: Base Excess 8 mmol/L (-2 to +2); FI02 70.0; PEEP 8; PO2 61 mmHG (75-100); RR 14; SITE R Brach; SO2 91 % (94-98)
[2025-11-05] MEDS: Midazolam 2 MG/2 ML Syringe IV (12:42)
[2025-11-05] MEDS: Midazolam 50 MG in 0.9% Normal Saline (100mL Bag) 90 ML CONT INF (12:48)
[2025-11-05] MEDS: Dexmedetomidine 1,000 mcg in 0.9% NS 240 mL 23.6 MCG CONT INF (14:32)
[2025-11-05] MEDS: Vital High Protein 1,000 ML 55 ML GT (16:11)
[2025-11-05 16:48] LABS: Anion Gap 11 (5-15); BUN 23 mg/dL (4-19); BUN/Creat Ratio 28.1 RATIO (10-20); Calcium,Total 8.4 mg/dL (7.6-11.0); Carbon Dioxide 30.4 mmol/L (21.0-32.0); Chloride 105 mmol/L (98-108); Estimated Creatinine Clearance 141.87 ml/min (50-250); Glucose 338 mg/dL (70-99); Potassium 3.5 mmol/L (3.3-5.1)
--- NOTE | 2025-11-05 16:52 | NURSING ---
education re chronic illness deferred till acute illness resolving
[2025-11-05] MEDS: Propofol 10MG/Ml 1,000 MG/100 ML Bottle 39.7 MG CONT INF ×2 (20:00→22:52)
[2025-11-05] MEDS: CHLORHEXIDINE GLUC 2% CLOTH 1 EACH TOWELETTE TOPICAL (20:07)
[2025-11-05] MEDS: Insulin Glargine-YFGN 100 UNIT/ML Pen 25 UNIT SC (21:02)
[2025-11-05] MEDS: Midazolam 50 MG in 0.9% Normal Saline (100mL Bag) 90 ML 10 MG CONT INF (21:20)
[2025-11-05] MEDS: 0.9% Normal Saline (250mL Bag) 250 ML 15 ML IV (21:54)
[2025-11-06] VITALS (38 sets, daily range): BP systolic 103–201; BP diastolic 47–83; PULSE 78–112; RESP 16–24; TEMP 36.8–38; O2SAT 86–98; BMI 68.5
[2025-11-06] MEDS: Propofol 10MG/Ml 1,000 MG/100 ML Bottle 34 MG CONT INF ×3 (01:13→07:25)
[2025-11-06] MEDS: Vancomycin Trough/Random Due 1 LAB MC (01:48)
[2025-11-06 02:18] LABS: Vancomycin, Trough Level 21.2 ug/mL (5.0-15.0)
[2025-11-06] MEDS: Vancomycin HCl 1,500 MG in 0.9% Normal Saline (500mL Bag) 500 ML 250 MG IV ×3 (02:46→18:39)
[2025-11-06] MEDS: 0.9% Saline Lock 10 ML Syringe IV ×4 (02:47→18:37)
--- NOTE | 2025-11-06 02:52 | PCM.RX.CS ---
Consult Antibiotic Management Pharmacy has been consulted to manage selected antibiotic: Vancomycin Type of Intervention Type of Consult: Follow-up Labs Labs: Sodium 147 mmol/L (133-145) H 11/05/25 16:00 Potassium 3.5 mmol/L (3.3-5.1) 11/05/25 16:00 Chloride 105 mmol/L (98-108) 11/05/25 16:00 Carbon Dioxide 30.4 mmol/L (21.0-32.0) 11/05/25 16:00 Anion Gap 11 (5-15) 11/05/25 16:00 BUN 23 mg/dL (4-19) H 11/05/25 16:00 Creatinine 0.83 mg/dL (0.70-1.20) 11/05/25 16:00 Est GFR (MDRD) Non-Af 87 (>60) 11/05/25 16:00 BUN/Creatinine Ratio 28.1 RATIO (10-20) H 11/05/25 16:00 Glucose 338 mg/dL (70-99) H 11/05/25 16:00 Vancomycin Trough 21.2 ug/mL (5.0-15.0) H 11/06/25 01:41 Microbiology Microbiology: Microbiology 10/31/25 21:40 Sputum, Induced/Lukens Gram Stain - Final 10/31/25 21:40 Sputum, Induced/Lukens Respiratory Culture - Final Staphylococcus aureus 11/01/25 09:15 Urine Catheter - Choe Urine Culture - Final Presumptive E. coli 10/31/25 21:50 Blood Culture (Wb) - Arm Left Blood Culture - Final Coag Negative Staph 10/31/25 21:38 Blood Culture (Wb) - Right Hand Bacteria Detection (PCR) - Final Staphylococcus epidermidis mecA Resistance Marker 10/31/25 21:38 Blood Culture (Wb) - Right Hand Blood Culture - Final Staphylococcus epidermidis 11/01/25 15:25 Mucosa - Nasopharyngeal Coronavirus COVID-19 PCR - Final 11/01/25 15:25 Mucosa - Nasopharyngeal Respiratory Panel (PCR) - Final Dosing Weight Weight used for dosin kg Estimated Creatinine Clearance Estimated Creatinine Clearance: 142 Goal Trough Goal Trough: 15-20 mcg/mL Pharmacy Plan for Drug Dosing Pharmacy Plan for Drug Dosing: Vancomycin trough level was high at 21.2. However, due to later dose infusion and earlier blood draw, this represented just a 6.3hr level. Per calculator, continuing at 1500mg q8h should give an estimated trough of 18.3. This is within the target range of 15-20. Will draw another trough in two days. Pharmacy Service will continue to monitor and adjust dosing as required. Follow-Up Labs Follow-Up Labs: Trough: Vancomycin Date/Time Labs Ordered Labs to be done on [date and time ordered]: 11/08/25 @0200
[2025-11-06 04:58] LABS: Hematocrit 29.4 % (37-47); Hemoglobin 8.5 g/dL (12.0-15.0); Immature Granulocytes Count 0.130 X10^3/uL (0.0-0.0); Mean Corp Hgb Conc 28.9 g/dL (32-36); Mean Corpuscular Volume 92.5 fL (81-99); Mean Platelet Vol. 10.7 fl (6.2-12.0); NRBC Flagged by Analyzer 0 % (0-5); Platelet Count 236 K/mm3 (150-450); RBC Distribution Width CV 14.6 % (11.6-14.6); RBC Distribution Width SD 50.0 fl (35.1-43.9); Red Blood Count 3.18 M/mm3 (4.2-5.4); White Blood Count 10.9 K/mm3 (4.4-11.0)
[2025-11-06] MEDS: fentaNYL drip 100 ML 20 MCG CONT INF ×5 (05:12→23:56)
[2025-11-06 05:15] LABS: Anion Gap 14 (5-15); BUN 26 mg/dL (4-19); BUN/Creat Ratio 31.2 RATIO (10-20); Calcium,Total 8.6 mg/dL (7.6-11.0); Carbon Dioxide 29.6 mmol/L (21.0-32.0); Chloride 109 mmol/L (98-108); Estimated Creatinine Clearance 140.19 ml/min (50-250); Glucose 350 mg/dL (70-99); Potassium 3.5 mmol/L (3.3-5.1)
[2025-11-06 05:25] LABS: CPK Total, Creatine Kinase 3371 U/L (24-195)
--- NOTE | 2025-11-06 05:30 | RAD_ITS ---
PROCEDURE: CHEST 1 VIEW (PORTABLE) 11/06/2025 REASON FOR EXAM: ETT VALIDATION TECHNIQUE: Frontal view of the chest. COMPARISON: 11/06/2025 FINDINGS: Hardware: Endotracheal tube, enteric tube, and right-sided PICC line unchanged. Heart: Cardiac and mediastinal contours are stable. Lungs: Unchanged diffuse pulmonary vascular congestion and airspace opacities. No pneumothorax or pleural effusion. Bones: The bones are unremarkable. RAD/Chest 1 View (Portable) IMPRESSION: No significant interval change. Reading Location[facility]
[2025-11-06] MEDS: Piperacil/Tazobactam 3.375 GM in 0.9% Normal Saline (50mL MB+) 50 ML IV ×3 (05:41→21:43)
--- NOTE | 2025-11-06 05:58 | PCM.HOSP.N ---
Hospitalist Note The patient's nurse said that she has had 4 liquid BM overnight. She is on Reglan to increase bowel motility. She is also on antibiotic vancomycin and Zosyn. Fecal management ordered. Stool for C. difficile enteric pathogen ordered. Hold Reglan. Probiotic ordered.
[2025-11-06 06:03] LABS: Allen Test Positive; Base Excess 9 mmol/L (-2 to +2); PEEP 8; PO2 57 mmHG (75-100); RR 14; SITE R Brach; SO2 88 % (94-98)
[2025-11-06] MEDS: Lactobacillis Acidophilus 1 CAP NG ×3 (06:31→21:28)
--- NOTE | 2025-11-06 07:16 | PCM.PN.HOSP ---
Reason for Visit Chief Complaint: Acute encephalopathy with respiratory distress Subjective Subjective Nursing staff reports patient having had 4 loose bowel movement. Patient was placed in enteric precautions with plans to send stool for C. difficile. Patient sedation was adjusted with addition of Versed plan is to wean off propofol. Patient sodium levels up to 152 started on D5W with serial BMP ordered Objective Data Objective Data Vital Signs: Vital Signs Temp Pulse Resp BP Pulse Ox O2 Del Method O2 Flow Rate 99.8 F H 83 17 128/49 H 93 Mechanical Ventilator 10 11/06/25 07:00 11/06/25 07:00 11/06/25 07:00 11/06/25 07:00 11/06/25 07:00 11/06/25 07:00 10/31/25 20:43 FiO2 55 11/06/25 07:00 Oxygen Flow Rate (L/min) 10 Oxygen Delivery Method Mechanical Ventilator Weight: 186.7 kg Body Mass Index (BMI) 68.5 Intake & Output: Intake and Output for Last 24 Hours 11/04/25 11/05/25 11/06/25 23:59 23:59 23:59 Intake Total 5722.84 / 5899.64 5455.53 / 5532.36 1653.70 / 1653.70 Output Total 79128 / 37806 7055 / 7105 1040 / 1040 Balance -5377.16 / -5200.36 -1599.47 / -1572.64 613.70 / 613.70 Lab / Micro Data 11/06/25 04:50 11/06/25 04:50 Labs: Laboratory Results - last 24 hr 11/05/25 12:36: POC Glucose 335 H 11/05/25 16:00: Sodium 147 H, Potassium 3.5, Chloride 105, Carbon Dioxide 30.4, Anion Gap 11, BUN 23 H, Creatinine 0.83, Estim Creat Clear Calc 141.87, Est GFR (MDRD) Non-Af 87, BUN/Creatinine Ratio 28.1 H, Glucose 338 H, Calcium 8.4 11/05/25 17:55: POC Glucose 292 H 11/05/25 20:55: POC Glucose 268 H 11/06/25 00:19: POC Glucose 284 H 11/06/25 01:41: Vancomycin Trough 21.2 H 11/06/25 04:50: WBC 10.9, RBC 3.18 L, Hgb 8.5 L, Hct 29.4 L, MCV 92.5, MCH 26.7 L, MCHC 28.9 L, RDW Std Deviation 50.0 H, RDW Coeff of Darrion 14.6, Plt Count 236, MPV 10.7, Immature Gran % (Auto) 1.200 H, Neut % (Auto) 75.7 H, Lymph % (Auto) 16.0 L, [place] % (Auto) 3.5, Eos % (Auto) 2.9, Baso % (Auto) 0.7, Absolute Neuts (auto) 8.2 H, Absolute Lymphs (auto) 1.74, Nucleated RBC % 0, Sodium 152 H, Potassium 3.5, Chloride 109 H, Carbon Dioxide 29.6, Anion Gap 14, BUN 26 H, Creatinine 0.84, Estim Creat Clear Calc 140.19, Est GFR (MDRD) Non-Af 85, BUN/Creatinine Ratio 31.2 H, Glucose 350 H, Calcium 8.6, Total Creatine Kinase 3371 H 11/06/25 06:18: POC Glucose 316 H Micro: Microbiology 10/31/25 21:40 Sputum, Induced/Lukens Gram Stain - Final 10/31/25 21:40 Sputum, Induced/Lukens Respiratory Culture - Final Staphylococcus aureus 11/01/25 09:15 Urine Catheter - Choe Urine Culture - Final Presumptive E. coli 10/31/25 21:50 Blood Culture (Wb) - Arm Left Blood Culture - Final Coag Negative Staph 10/31/25 21:38 Blood Culture (Wb) - Right Hand Bacteria Detection (PCR) - Final Staphylococcus epidermidis mecA Resistance Marker 10/31/25 21:38 Blood Culture (Wb) - Right Hand Blood Culture - Final Staphylococcus epidermidis 11/01/25 15:25 Mucosa - Nasopharyngeal Coronavirus COVID-19 PCR - Final 11/01/25 15:25 Mucosa - Nasopharyngeal Respiratory Panel (PCR) - Final ABG Data ABG results: ABG 11/05/25 11/06/25 12:35 05:59 Specimen Type ART ART Sample Site R Brach R Brach pH 7.43 7.38 Bicarbonate Actual 32.6 H 34.0 H Total CO2 34 36 Base Excess 8 H 9 H O2 Saturation 91 L 88 L O2 % 70.0 ABG pCO2 48.7 H 57.4 H ABG pO2 61 L 57 L Meño Test Positive Respiration Rate 14 14 O2 Delivery Device Adult Vent Adult Vent Vent Mode AC AC Tidal Volume 480.0 480.0 POC PEEP 8 8 Physical Exam Narrative GENERAL: sedated on the vent HEENT: Atraumatic; normocephalic EYES; Anicteric, Normal Conjunctiva NECK; supple, normal thyroid, RESPIRATORY: Diminished to auscultation CARDIOVASCULAR: Regular S1 S2, GI: soft, normoactive bowel sounds, : No Renal angle tenderness; EXTREMITIES: Bilateral stasis dermatitis, eschar on the dorsal surface of the left great MUSCULOSKELETAL: no muscle wasting NEURO: Patient underwent SKIN: Stasis dermatitis involving both lower extremities PSYCH; unable to assess Assessment & Plan Assessment/Plan (1) Complicated urinary tract infection: (2) Acute hypotension: (3) Acute encephalopathy: (4) Community acquired pneumonia: (5) Sepsis: (6) Acute on chronic respiratory failure with hypoxia and hypercapnia: (7) Diabetes mellitus type 2, insulin dependent: (8) Morbid obesity: PLAN: Plan Patient is a 50-year-old lady with multiple comorbidities including class III obesity with BMI of 70.6 brought in by the family on account of decreased level of sensorium. Given new worsening mental status patient was intubated and admitted to the intensive care unit. 1. Acute hypoxic respiratory failure ? Multifactorial including CHF, obesity hypoventilation syndromeAs well as suspected pneumonia. Checks x-ray obtained on admission demonstrated stable cardiomegaly, pulmonary vascular congestion as well as bilateral perihilar lower lung zone infiltrate. Patient was intubated in the ED prior to patient being admitted. Subsequent vent management deferred to purchasing buyer ? 11/02/2025; patient remains on the vent and still restless despite being on max dose of propofol and fentanyl. An order was given for patient to receive additional bolus of Dilaudid. ? 11/03/2025;Patient seen remains on the vent arouses to sternal rub. Patient remains agitated despite ketamine being added to her sedation. Blood pressure markedly elevated at 195/87. Patient remains tachycardic with temperature of 101. ? 11/04/2025; patient remains on the vent. ? 11/05/2025; patient still remains restless on the vent plan is to increase patient Seroquel from 50 to 75 mg twice daily ? 11/06/2025; Patient sedation was adjusted with addition of Versed plan is to wean off propofol. Seroquel was increased from 75 mg twice daily to 3 times daily. 2. Septic shock ? Secondary to combination of acute cystitis, pneumonia as patient was managed per protocol did respond to IV fluid resuscitation. Patient had to be started on Levophed following her intubation ? 11/02/2025 patient continues to spike fever Tmax this morning is 102.2. Blood cultures so far positive for staph epi possibly contaminant ? 11/03/2025; patient off Levophed and blood pressure is actually elevated.. Urine cultures positive for presumptive E. coli blood cultures was positive for coagulase-negative staph possibly contaminant and sputum cultures positive for Staph aureus. Consult was placed to ID patient has been seen by Dr Gonzalez,, notes and recommendations reviewed ? 11/04/2025; patient cultures so far positive for staph epi 8 blood, Staph aureus in sputum and nonsignificant colony count of E. coli in the urine 3. Acute on chronic congestive heart failure with preserved ejection fraction ? Patient most recent echo from 11/12/2024 demonstrated EF of 55%. Patient has been placed on a monitored bed treatment initiated with low-sodium diet, fluid restriction, strict input and output, daily weight as well as furosemide ? 11/06/2025; held patient furosemide given elevated sodium levels. 4. Acute cystitis with E. coli ? Patient started on broad-spectrum antibiotic therapy with urine culture sent ? 11/03/2025 patient remains on broad-spectrum antibiotic therapy 5. Pneumonia with MSSA ? With suspected gram-positive organisms patient is on doxycycline as well as ceftriaxone cultures were sent on admission patient presented with respiratory failure, was intubated and placed on mechanical ventilation ? 11/05/2025; patient sputum cultures positive for MSSA patient remains on Zosyn as well as vancomycin 6. Hypocalcemia ? Corrected per protocol repeat calcium levels ordered for a.m. 7. Acute kidney injury ? Patient creatinine from 08/19/2025 was 0.91 creatinine on admission was 1.25 patient is on fluids will repeat BMP ordered for a.m. 8. Diabetes mellitus type 2 with complications including peripheral neuropathy ? Oral agents held placed on Accu-Cheks Q6 with sliding scale coverage ? 11/02/2025; patient glucose control not optimal will continue with adjustment of long-acting insulin ? 11/04/2025; glucose levels still remain elevated further adjustment made to her insulin regimen 9. Essential hypertension ? Patient blood pressure medications held given low blood pressure initially on presentation ? 11/03/2025; patient blood pressure markedly elevated ordered hydralazine as needed for systolic blood pressure greater than 160 if no response will consider starting Cardene drip 10. History of VTE ? Patient is on systemic anticoagulation with apixaban this was continued on admission 11. GERD ? On PPI 12. Subclinical hypothyroidism (new diagnosis) ? Patient had been started on levothyroxine during her previous admission in August however levothyroxine was not on her home meds 13. Dyslipidemia ?Patient is on statin therapy, continued at home dose 14. Anemia ? Secondary to chronic disorder monitoring H&H and transfuse if patient becomes symptomatic or hemoglobin falls below 7 ? 11/06/2025; hemoglobin down to 8.5., Repeat H&H ordered for a.m. 14. Class III obesity with BMI of 70 ? Complicating care; Patient is on semaglutide as outpatient 15. .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 ? Consistent use of PAP therapy encouraged 16. Depression with anxiety ? Patient is on duloxetine as well as diazepam as needed held given her presentation 17. DVT prophylaxis ? Patient is on apixaban 18. Hypophosphatemia ? 11/02/2025 replacement initiated 19. intermittent A-fib Patient was started on Cardizem per G-tube. Remains on systemic anticoagulation with apixaban 20. Hyponatremia ? Patient fluid flushes via NG tube increased. Held Lasix 21. Diarrhea ? Patient placed in enteric precautions with plans to send stool for C. difficile Charges/Coding Visit Charges Inpatient E&M: 53568 [facility] L[facility]
--- NOTE | 2025-11-06 07:20 | NURSING ---
change of shift rounds
[2025-11-06] MEDS: Midazolam 50 MG in 0.9% Normal Saline (100mL Bag) 90 ML 10 MG CONT INF (07:30)
[2025-11-06] MEDS: Chlorhexidine 15 ML PO ×2 (08:00→21:29)
[2025-11-06] MEDS: APIXABAN 5 MG TABLET PO ×2 (10:12→21:28)
[2025-11-06] MEDS: Insulin Glargine-YFGN 100 UNIT/ML Pen 25 UNIT SC (10:16)
[2025-11-06] MEDS: Famotidine 200 MG/20 ML MDV 20 MG in 0.9% Normal Saline (Pres. free 8 ML 300 MG IV (10:33)
--- NOTE | 2025-11-06 11:25 | PN.CC_ITS ---
Objective Data Objective Data Vital Signs: Vital Signs Last response 3 Temperature 37.3 C 11/06/25 08:00 Temperature Source Oral 11/06/25 08:00 Pulse Rate 84 11/06/25 10:00 Pulse Strength Normal (2+) 11/05/25 20:34 Respiratory Rate 21 H 11/06/25 10:00 Respiratory Effort Mechanically Ventilated 11/06/25 08:00 Respiratory Depth Normal 11/06/25 08:00 Respiratory Pattern Normal 11/06/25 08:00 Blood Pressure 148/58 H 11/06/25 10:00 Blood Pressure Mean 88 11/06/25 10:00 Blood Pressure Source Monitor 11/06/25 10:00 Blood Pressure Position Semi-Fowlers 11/06/25 10:00 Blood Pressure Location Left Forearm 11/06/25 10:00 Pulse Ox 16 11/06/25 10:00 Oxygen Delivery Method Mechanical Ventilator 11/06/25 10:00 Oxygen Flow Rate (L/min) 10 10/31/25 20:43 Fraction of Inspired Oxygen (FIO2) 55 11/06/25 10:00 I&O: I&O Last 24 Hours 3 11/05/25 11/05/25 11/06/25 11:59 23:59 11:59 Intake Total 2259.82 / 5532.36 3195.71 / 5532.36 2292.38 / 2292.38 Output Total 4500 / 7105 2555 / 7105 1040 / 1040 Balance -2240.18 / -1572.64 640.71 / -1572.64 1252.38 / 1252.38 I&O: Total Stay 3 10/31/25 20:24 thru 11/06/25 10:45 Intake Total 61223.3533 Output Total 31686 Balance 837.3533 Current Meds Ordered / Administered: Current meds ordered / Administered 3 Generic Name Dose Route Start Last Admin Trade Name Freq PRN Reason Stop Dose Admin Acetaminophen 650 mg 11/01/25 11:12 11/05/25 23:01 Acetaminophen 650 Mg/20 Ml Udc GT 650 mg Q4H PRN PRN Administration Pain 1-10 or Fever Apixaban 5 mg 11/01/25 10:00 11/06/25 10:12 Apixaban 5 Mg Tablet PO 5 mg BID KIAN Administration Chlorhexidine Gluconate 15 ml 11/01/25 10:00 11/06/25 08:00 Chlorhexidine 15 Ml PO 15 ml BID KIAN Administration Chlorhexidine Gluconate 1 each 11/01/25 10:00 11/05/25 20:07 Chlorhexidine Gluc 2% Cloth 1 Each [place]elette TOPICAL 1 each DAILY KIAN Administration Diltiazem HCl 120 mg 11/02/25 12:11 11/06/25 10:10 Diltiazem 60 Mg Tablet GT 120 mg DAILY KIAN Administration Protocol Glucagon 1 mg 11/01/25 00:28 Glucagon 1 Mg/Ml Syringe IM X1 PRN Hypoglycemia Protocol Glucagon 1 mg 11/05/25 12:01 Glucagon 1 Mg/Ml Syringe IM X1 PRN Hypoglycemia Protocol Hydralazine HCl 10 mg 11/04/25 18:05 11/05/25 05:05 Hydralazine 20 Mg/Ml Vial IV 10 mg Q6H PRN PRN Administration SBP GREATER THAN 170 Protocol Dextrose 250 mls @ 0 mls/hr 11/01/25 00:28 Dextrose 10%-Water IV .Q0M PRN HYPOGLYCEMIA Protocol As Directed Sodium Chloride 250 mls @ 15 mls/hr 11/01/25 00:55 11/04/25 17:15 IV Infused .[id number] PRN Infusion Saline Flush Sodium Chloride 250 mls @ 15 mls/hr 11/01/25 00:55 11/05/25 21:54 IV 15 mls/hr .[id number] PRN Administration Additional IVPB Infusion Famotidine 20 mg/ Sodium 10 mls @ 300 mls/hr 11/01/25 10:00 11/06/25 10:33 Chloride IV 300 mls/hr Q24 KIAN Administration Propofol 1,000 mg in 100 mls @ 11.34 mls/hr 11/01/25 22:45 11/06/25 10:45 Diprivan CONT INF 10 mcg/kg/min .Q8H50M KIAN 11.3 mls/hr Protocol Titration 10 MCG/KG/MIN Vancomycin IV-PHARMACY TO DOSE 500 mls @ 250 mls/hr 11/01/25 23:56 1 each/ Sodium Chloride IV X1 PRN Rx to Dose Protocol Piperacillin Sod/Tazobactam 50 mls @ 12.5 mls/hr 11/02/25 00:00 11/06/25 05:41 Sod 3.375 gm/ Sodium Chloride IV 12.5 mls/hr Q8 KIAN Administration Fentanyl 100 mls @ 5 mls/hr 11/02/25 01:40 11/06/25 10:00 CONT INF 200 mcg/hr UD KIAN 20 mls/hr Protocol Titration 50 MCG/HR Enteral Nutritional Formula 1,000 mls @ 55 mls/hr 11/02/25 12:30 11/06/25 10:00 Vital High Protein GT 55 mls/hr .[id number] KIAN Infusion Vancomycin HCl 1,500 mg/ 530 mls @ 250 mls/hr 11/03/25 02:30 11/06/25 10:34 Sodium Chloride IV 250 mls/hr Q8H KIAN Administration Dexmedetomidine HCl 1,000 mcg/ 250 mls @ 23.625 mls/hr 11/03/25 13:40 11/06/25 04:22 Sodium Chloride CONT INF Not Given .[id number] KIAN Protocol 0.5 MCG/KG/HR Midazolam HCl 50 mg/ Sodium 100 mls @ 2 mls/hr 11/05/25 12:00 11/06/25 10:45 Chloride CONT INF 7 mg/hr .Q50H KIAN 14 mls/hr Protocol Titration 1 MG/HR Dextrose 250 mls @ 0 mls/hr 11/05/25 12:01 Dextrose 10%-Water IV .Q0M PRN HYPOGLYCEMIA Protocol As Directed Ibuprofen 400 mg 11/04/25 18:05 11/05/25 23:01 Ibuprofen 100 Mg/5 Ml Udc GT 400 mg Q6H PRN PRN Administration Pain 1-10 or Fever Influenza Virus Vacc Trival Recomb 45 mcg 11/07/25 10:00 Flu Vaccine (6mos Up) 45 Mcg/0.5 Ml Syringe IM 11/07/25 10:01 .ONCE ONE Insulin Glargine 25 unit 11/05/25 22:00 11/06/25 10:16 Insulin Glargine-Yfgn 100 Unit/Ml Pen SC 25 unit BID KIAN Administration Insulin Human Lispro 0 unit 11/01/25 06:00 11/06/25 06:39 Insulin Lispro 100 Unit/Ml Insuln.Pen SC 9 units Q6 KIAN Administration Protocol Labetalol HCl 10 mg 11/02/25 22:24 11/05/25 06:06 Labetalol 20 Mg/4 Ml Vial IV 10 mg Q4H PRN PRN Administration SBP GREATER THAN 170 Lisinopril 20 mg 11/04/25 12:15 11/06/25 10:14 Lisinopril 20 Mg Tablet PO 20 mg DAILY KIAN Administration Protocol Metoclopramide HCl 5 mg 11/04/25 23:00 11/05/25 21:03 Metoclopramide 10 Mg/2 Ml Vial IV 5 mg On Hold: 11/06/25 05:57 Q8 KIAN Administration Midazolam HCl 2 mg 11/05/25 11:57 11/05/25 12:42 Midazolam 2 Mg/2 Ml Syringe IV 2 mg Q2H PRN PRN Administration AGITATION Nystatin 1 applic 11/01/25 10:00 11/06/25 08:00 Nystatin Powder 15gm Bottle TOPICAL 1 applic BID [facility] Administration Protocol Quetiapine Fumarate 100 mg 11/06/25 14:00 Quetiapine 100 Mg Tablet PO Q8 [facility] Protocol Sodium Chloride 10 - 40 ml 11/01/25 00:55 11/06/25 05:43 0.9% Saline Lock 10 Ml Syringe IV 20 ml UD PRN Administration SALINE FLUSH Vancomycin Protocol 1 lab 11/08/25 01:00 Vancomycin Trough/Random Due MC 11/08/25 03:00 DAILY [facility] Lab / Micro Data 11/06/25 04:50 11/06/25 04:50 Labs: Laboratory Results - last 24 hr 11/05/25 12:36: POC Glucose 335 H 11/05/25 16:00: Sodium 147 H, Potassium 3.5, Chloride 105, Carbon Dioxide 30.4, Anion Gap 11, BUN 23 H, Creatinine 0.83, Estim Creat Clear Calc 141.87, Est GFR (MDRD) Non-Af 87, BUN/Creatinine Ratio 28.1 H, Glucose 338 H, Calcium 8.4 11/05/25 17:55: POC Glucose 292 H 11/05/25 20:55: POC Glucose 268 H 11/06/25 00:19: POC Glucose 284 H 11/06/25 01:41: Vancomycin Trough 21.2 H 11/06/25 04:50: WBC 10.9, RBC 3.18 L, Hgb 8.5 L, Hct 29.4 L, MCV 92.5, MCH 26.7 L, MCHC 28.9 L, RDW Std Deviation 50.0 H, RDW Coeff of Darrion 14.6, Plt Count 236, MPV 10.7, Immature Gran % (Auto) 1.200 H, Neut % (Auto) 75.7 H, Lymph % (Auto) 16.0 L, Hodgeman % (Auto) 3.5, Eos % (Auto) 2.9, Baso % (Auto) 0.7, Absolute Neuts (auto) 8.2 H, Absolute Lymphs (auto) 1.74, Nucleated RBC % 0, Sodium 152 H, Potassium 3.5, Chloride 109 H, Carbon Dioxide 29.6, Anion Gap 14, BUN 26 H, Creatinine 0.84, Estim Creat Clear Calc 140.19, Est GFR (MDRD) Non-Af 85, B UN/Creatinine Ratio 31.2 H, Glucose 350 H, Calcium 8.6, Total Creatine Kinase 3371 H 11/06/25 06:18: POC Glucose 316 H Micro: Microbiology 10/31/25 21:40 Sputum, Induced/Lukens Gram Stain - Final 10/31/25 21:40 Sputum, Induced/Lukens Respiratory Culture - Final Staphylococcus aureus ABG Data ABG results: ABG 11/05/25 11/06/25 12:35 05:59 Specimen Type ART ART Sample Site R Brach R Brach pH 7.43 7.38 Bicarbonate Actual 32.6 H 34.0 H Total CO2 34 36 Base Excess 8 H 9 H O2 Saturation 91 L 88 L O2 % 70.0 ABG pCO2 48.7 H 57.4 H ABG pO2 61 L 57 L Meño Test Positive Respiration Rate 14 14 O2 Delivery Device Adult Vent Adult Vent Vent Mode AC AC Tidal Volume 480.0 480.0 POC PEEP 8 8 Assessment and Plan . Assessment and plan: A/P: 1. Resp Failure: acute on chronic. Hypoxemic/hypercapnic. O2 req high. AC 14/480/8/55. Wean FIO2 as tolerated. Suspect she will need early trach: given airspace disease/obesity/sedation issues. 2. Fever: on broad empiric coverage(ID following). Concern for drug fever-weaned off precedex and fever resolved. 3. Sedation: on fent/propofol and versed gtts. 4. BSI: 2/2 CONS. On Vanc. ID following 5. Ecoli UTI: gonzalez sens bug. On zosyn. 6. Agitation: added extra dose of seroquel. Now on 100 po Q8. 7. Pneumonia: On Vanc and zosyn. 8. DM: poor control. Increase to lantus to 35 Q12. Continue SS(change to Q4) 9. Morbid Obesity 10. ? Volume overload: diuresing well. NA higher today. Holdig diuretics 11. Hypernatremia: Free H20 increased. 12. Presumed LOGAN/OHS 13.FEN: TFs 14. PX: On AC. Juarez Velasquez MD Critical Care Time:50 minutes The entirety of this encounter was done via Telemedicine Physical Exam Narrative intubated, sedated pupils:= o/p: ETT in place CV: RRR Chest: coarse bs Abd: obese, soft, nt ext: no c/c/e Skin: no rashes Subjective Subjective better sedated today.
[2025-11-06] MEDS: Vital High Protein 1,000 ML 55 ML GT (12:10)
[2025-11-06] MEDS: Propofol 10MG/Ml 1,000 MG/100 ML Bottle 11.3 MG CONT INF (12:10)
--- NOTE | 2025-11-06 15:00 | NURSING ---
education re chronic illness deferred till acute illness resolving
[2025-11-06] MEDS: Midazolam 50 MG in 0.9% Normal Saline (100mL Bag) 90 ML 14 MG CONT INF (15:33)
[2025-11-06 17:56] LABS: Base Excess 7 mmol/L (-2 to +2); FI02 80.0; PEEP 8; PO2 48 mmHG (75-100); RR 14; SITE R Radial; SO2 82 % (94-98)
--- NOTE | 2025-11-06 18:00 | RAD_ITS ---
PROCEDURE: CHEST 1 VIEW (PORTABLE) 11/06/2025 REASON FOR EXAM: SOB, DECREASE SPO2 TECHNIQUE: Frontal view of the chest. COMPARISON: 11/05/2025 chest x-ray FINDINGS: Endotracheal tube is in good position. Enteric feeding tube is in good position. Right PICC line is in good position. Stable pulmonary venous congestion/infiltrates. There is no demonstrated pleural abnormality. Enlarged cardiac silhouette. Normal mediastinum and evi. Normal visualized pulmonary arteries. Atheromatous plaques of the visualized aortic arch and descending thoracic aorta. Diffuse spondylosis of the visualized thoracic spine. Normal visualized ribs, clavicles. Degenerative joint disease. There is no demonstrated abnormality of the visualized soft tissue structures of the upper abdomen. RAD/Chest 1 View (Portable) IMPRESSION: Diffuse airspace disease, not significantly changed from prior study. Stable s upportive apparatus. Reading Location: [facility]
--- NOTE | 2025-11-06 18:14 | NURSING ---
1750 RT present in pt room. SpO2 81%, bagged on 100% w/ lavage x2 w/little or no result. return to vent 100%, Pt sedated to RASS-3. Stat ABG and CXR ordered 1800 Stat CXR and ABGs completed. pt repositioned Supine, HOB 30. 1809 Dr. Velasquez notified via phone all above, w/ reminder we held lasix. orders recd 1820 in pt room via computer, orders recd
--- NOTE | 2025-11-06 19:34 | NURSING ---
this RN spoke at length w/pt's dtr, update given, POC disc. many questins answered, reassurance given
[2025-11-06] MEDS: Propofol 10MG/Ml 1,000 MG/100 ML Bottle 45.4 MG CONT INF (19:51)
[2025-11-06] MEDS: Insulin Glargine-YFGN 100 UNIT/ML Pen 35 UNIT SC (21:32)
[2025-11-06] MEDS: Propofol 10MG/Ml 1,000 MG/100 ML Bottle 44.8 MG CONT INF ×2 (21:47→23:54)
[2025-11-06] MEDS: Midazolam 50 MG in 0.9% Normal Saline (100mL Bag) 90 ML 16 MG CONT INF (23:00)
[2025-11-07] VITALS (22 sets, daily range): BP systolic 114–180; BP diastolic 51–82; PULSE 80–100; RESP 20–27; TEMP 37.1–37.4; O2SAT 80–96; BMI 69.7
[2025-11-07] MEDS: Vital High Protein 1,000 ML 55 ML GT (01:43)
[2025-11-07] MEDS: Propofol 10MG/Ml 1,000 MG/100 ML Bottle 56 MG CONT INF ×4 (01:51→06:53)
[2025-11-07] MEDS: Vancomycin HCl 1,500 MG in 0.9% Normal Saline (500mL Bag) 500 ML 250 MG IV ×2 (02:12→10:00)
[2025-11-07] MEDS: 0.9% Normal Saline (250mL Bag) 250 ML 15 ML IV (02:39)
[2025-11-07] MEDS: CHLORHEXIDINE GLUC 2% CLOTH 1 EACH TOWELETTE TOPICAL (02:39)
[2025-11-07 03:36] LABS: Hematocrit 31.0 % (37-47); Hemoglobin 8.9 g/dL (12.0-15.0); Immature Granulocytes Count 0.160 X10^3/uL (0.0-0.0); Mean Corp Hgb Conc 28.7 g/dL (32-36); Mean Corpuscular Volume 92.5 fL (81-99); Mean Platelet Vol. 11.1 fl (6.2-12.0); NRBC Flagged by Analyzer 0.2 % (0-5); Platelet Count 275 K/mm3 (150-450); RBC Distribution Width CV 14.6 % (11.6-14.6); RBC Distribution Width SD 49.6 fl (35.1-43.9); Red Blood Count 3.35 M/mm3 (4.2-5.4); White Blood Count 10.5 K/mm3 (4.4-11.0)
[2025-11-07 03:54] LABS: Anion Gap 13 (5-15); BUN 27 mg/dL (4-19); BUN/Creat Ratio 33.4 RATIO (10-20); Calcium,Total 8.9 mg/dL (7.6-11.0); Carbon Dioxide 27.1 mmol/L (21.0-32.0); Chloride 108 mmol/L (98-108); Estimated Creatinine Clearance 145.91 ml/min (50-250); Glucose 344 mg/dL (70-99); Potassium 3.8 mmol/L (3.3-5.1)
[2025-11-07] MEDS: Midazolam 50 MG in 0.9% Normal Saline (100mL Bag) 90 ML 18 MG CONT INF ×2 (04:32→10:09)
[2025-11-07] MEDS: fentaNYL drip 100 ML 20 MCG CONT INF ×3 (04:35→12:40)
[2025-11-07 04:41] LABS: Allen Test Positive; Base Excess 5 mmol/L (-2 to +2); FI02 80.0; PEEP 12; PO2 50 mmHG (75-100); RR 24; SITE L Radial; SO2 83 % (94-98)
[2025-11-07] MEDS: Lactobacillis Acidophilus 1 CAP NG (05:14)
[2025-11-07] MEDS: Piperacil/Tazobactam 3.375 GM in 0.9% Normal Saline (50mL MB+) 50 ML IV (05:17)
--- NOTE | 2025-11-07 05:30 | RAD_ITS ---
PROCEDURE: CHEST 1 VIEW (PORTABLE) 11/07/2025 REASON FOR EXAM: PNA TECHNIQUE: Oblique view of the chest. COMPARISON: November 06, 2025 FINDINGS: There is an ET tube in position with its tip 3.5 cm above the level of the anitra. There is an enteric tube with its tip below the field of view of this exam. Heart size is obscured by diffuse interstitial and alveolar infiltrates. There is consolidation at the right base which is increased. A component of effusion is not excluded. There is no visible pneumothorax. There is no acute bony abnormality. RAD/Chest 1 View (Portable) IMPRESSION: Tubes and lines in position. Heart size is obscured by diffuse interstitial and alveolar infiltrates. There is consolidation at the right base which is increased. A component of ef fusion is not excluded. Reading Location: [facility]
--- NOTE | 2025-11-07 05:48 | PCM.PN.INT ---
Assessment & Plan Assessment/Plan (1) Acute on chronic respiratory failure with hypoxia and hypercapnia: PLAN: Plan RECOMMENDATIONS: 1. Continue to wean FiO2 and PEEP as tolerated. 2. Continue antimicrobials per ID recommendations. 3. Continue current sedation regimen along with scheduled Seroquel. 4. Continue Eliquis per home regimen. 5. Continue appropriate GI prophylaxis. 6. Continue tube feeding for nutritional support. 7. Continue Cardizem per home regimen. 8. Given anticipation in the need for tracheostomy and PEG tube placement, recommend transfer to a tertiary care facility. IMPRESSIONS: 1. Acute on chronic combined respiratory failure Most likely multifactorial in etiology with underlying alveolar hypoventilation secondary to obesity, obstructive sleep apnea with PAP noncompliance, pulmonary hypertension and pneumonia contributing. At the present time, the patient will be continued on assist-control mode of mechanical ventilation. Goal is to wean FiO2 and PEEP to maintain saturations at or above 90%. Antimicrobials will be continued under the discretion of infectious diseases. The patient has been extremely difficult to sedate. She is currently requiring propofol, fentanyl and Versed to maintain an appropriate level of sedation. In addition to the aforementioned, scheduled Seroquel will be continued. Will continue appropriate ICU prophylaxis along with tube feeding for nutritional support. Given the anticipation that the patient will be unable to be weaned from invasive mechanical ventilatory support over the course of the next week, recommend consideration to transfer to a tertiary care facility for tracheostomy and PEG tube placement. 2. Sepsis Clinical concern for underlying UTI versus pneumonia as contributing etiology, with subsequent bacteremia noted. The patient is currently hemodynamically stable, without the need for vasopressor support. Plan to continue antimicrobials per ID recommendations. 3. Encephalopathy Most likely toxic/metabolic in etiology in the setting of sepsis and hypercarbia related to noncompliance with noninvasive ventilator support. Plan to continue supportive care as noted above. 4. History of restrictive lung disease secondary to obesity/history of pulmonary embolism/obstructive sleep apnea/tobacco dependency Complicates care, management, recovery and prognosis. Continue systemic anticoagulation per home regimen. Weight loss is imperative. Continue tube feeding today for nutritional support. TIME: 36 minutes of critical care time, independent of procedures, was spent addressing the patient's acute on chronic combined respiratory failure, sepsis, encephalopathy, review of all data and collaboration with the care team. Subjective Subjective The patient was seen and examined at the bedside this morning. Events from the last 24 hours have been reviewed. The patient is currently afebrile, hemodynamically stable and maintaining appropriate oxygen saturations on assist-control mode mechanical ventilation with an FiO2 requirement of 90% and PEEP of 12. The patient is currently sedated on propofol, fentanyl and Versed. The patient has been tolerant of tube feeding. White blood cell count is normal. Hemoglobin and platelet count are stable. Creatinine is within normal limits. Glucose is elevated at 344. The patient remains on antimicrobials along with scheduled Seroquel. Objective Data Objective Data The patient's most recent lab work, culture data and imaging studies have all been personally reviewed. Surface echocardiogram from October 2024 demonstrated normal LV size and function with an ejection fraction of 55%. Respiratory viral panel was negative. COVID PCR was negative. Blood cultures were positive for Staphylococcus epidermidis, urine cultures demonstrating growth of presumptive E. coli and sputum cultures demonstrating growth of Staphylococcus aureus. Vital Signs: Vital Signs Temp Pulse Resp BP Pulse Ox O2 Del Method O2 Flow Rate 99.0 F 87 27 H 166/68 H 91 Mechanical Ventilator 10 11/07/25 04:00 11/07/25 05:00 11/07/25 05:00 11/07/25 05:00 11/07/25 05:00 11/07/25 05:00 10/31/25 20:43 FiO2 80 11/07/25 05:00 Oxygen Flow Rate (L/min) 10 Oxygen Delivery Method Mechanical Ventilator Weight: 418 lb 14.052 oz Body Mass Index (BMI) 69.7 Intake & Output: Intake and Output for Last 24 Hours 11/05/25 11/06/25 11/07/25 23:59 23:59 23:59 Intake Total 5455.53 / 5532.36 5189.35 / 5461.16 2197.89 / 2197.89 Output Total 7055 / 7105 3765 / 3765 Balance -1599.47 / -1572.64 1424.35 / 1696.16 2197.89 / 2197.89 Lab / Micro Data Attestation: I reviewed the patient's lab results. 11/07/25 03:15 11/07/25 03:15 Labs: Laboratory Results - last 24 hr 11/06/25 06:18: POC Glucose 316 H 11/06/25 13:43: POC Glucose 305 H 11/06/25 17:13: POC Glucose 302 H 11/07/25 03:15: WBC 10.5, RBC 3.35 L, Hgb 8.9 L, Hct 31.0 L, MCV 92.5, MCH 26.6 L, MCHC 28.7 L, RDW Std Deviation 49.6 H, RDW Coeff of Darrion 14.6, Plt Count 275, MPV 11.1, Immature Gran % (Auto) 1.500 H, Neut % (Auto) 79.2 H, Lymph % (Auto) 12.0 L, Mcleod % (Auto) 3.2, Eos % (Auto) 3.5, Baso % (Auto) 0.6, Absolute Neuts (auto) 8.4 H, Absolute Lymphs (auto) 1.26, Nucleated RBC % 0.2, Sodium 148 H, Potassium 3.8, Chloride 108, Carbon Dioxide 27.1, Anion Gap 13, BUN 27 H, Creatinine 0.81, Estim Creat Clear Calc 145.91, Est GFR (MDRD) Non-Af 90, BUN/Creatinine Ratio 33.4 H, Glucose 344 H, Calcium 8.9 Micro: Microbiology 10/31/25 21:40 Sputum, Induced/Lukens Gram Stain - Final 10/31/25 21:40 Sputum, Induced/Lukens Respiratory Culture - Final Staphylococcus aureus 11/01/25 09:15 Urine Catheter - Choe Urine Culture - Final Presumptive E. coli 10/31/25 21:50 Blood Culture (Wb) - Arm Left Blood Culture - Final Coag Negative Staph 10/31/25 21:38 Blood Culture (Wb) - Right Hand Bacteria Detection (PCR) - Final Staphylococcus epidermidis mecA Resistance Marker 10/31/25 21:38 Blood Culture (Wb) - Right Hand Blood Culture - Final Staphylococcus epidermidis 11/01/25 15:25 Mucosa - Nasopharyngeal Coronavirus COVID-19 PCR - Final 11/01/25 15:25 Mucosa - Nasopharyngeal Respiratory Panel (PCR) - Final ABG Data ABG results: ABG 11/06/25 11/06/25 11/07/25 05:59 17:53 04:36 Specimen Type ART ART ART Sample Site R Brach R Radial L Radial pH 7.38 7.38 7.36 Bicarbonate Actual 34.0 H 31.9 H 30.5 H Total CO2 36 34 32 Base Excess 9 H 7 H 5 H O2 Saturation 88 L 82 L 83 L O2 % 80.0 80.0 ABG pCO2 57.4 H 53.7 H 53.7 H ABG pO2 57 L 48 L 50 L Meño Test Positive Positive Respiration Rate 14 14 24 O2 Delivery Device Adult Vent Adult Vent Adult Vent Vent Mode AC AC AC Tidal Volume 480.0 480.0 400.0 POC PEEP 8 8 12 Radiography Diagnostic Testing: Radiology Impression Chest X-Ray 11/06/25 05:30 IMPRESSION: No significant interval change. Reading Location: [facility] Chest X-Ray 11/06/25 18:00 IMPRESSION: Diffuse airspace disease, not significantly changed from prior study. Stable supportive apparatus. Reading Location: [facility] Physical Exam Const Constitutional Narrative: Intubated, sedated and mechanically ventilated. Super morbidly obese. General Appearance: ill appearing and patient mechanically ventilated HEENT head/scalp atraumatic and moist oral mucous membranes Mouth: endotracheal tube in place and OG tube in place Eyes PERRL, EOMs intact bilaterally and conjunctivae normal Neck supple Neck Narrative: Large neck circumference with redundant soft tissue. General: trachea midline Chest inspection of chest normal Resp Auscultation: diminished lung sounds; Negative for rales, rhonchi or wheezes Cardio regular rate, regular rhythm, S1 normal heart sound and S2 normal heart sound GI normal to inspection, nondistended, normoactive bowel sounds Extremity no clubbing, cyanosis or edema Skin General Skin Exam: venous stasis and dermatitis Neuro Sensorium / Orientation: sedated on vent Psych Activity / Motor Behavior: restless Charges/Coding Procedures Hospitalists Procedures: 38964 Critical Care 1st Hr
[2025-11-07] MEDS: Propofol 10MG/Ml 1,000 MG/100 ML Bottle 57 MG CONT INF ×4 (08:36→13:28)
[2025-11-07] MEDS: Chlorhexidine 15 ML PO (08:44)
[2025-11-07] MEDS: APIXABAN 5 MG TABLET PO (09:47)
[2025-11-07] MEDS: Insulin Glargine-YFGN 100 UNIT/ML Pen 50 UNIT SC (09:48)
[2025-11-07] MEDS: Famotidine 200 MG/20 ML MDV 20 MG in 0.9% Normal Saline (Pres. free 8 ML 300 MG IV (09:59)
--- NOTE | 2025-11-07 10:12 | CASEMGMT ---
Tertiary Insurance review for hospitals In-network with [facility] Dual Complete insurance if transfer is recommended is as follows: [facility], [facility], [place], [facility], [facility], [facility], , [place], [facility], and [place]. Lula Tao, Discharge Planning Asst.
--- NOTE | 2025-11-07 11:14 | NURSING ---
Addendum entered by Elaine Frias 11/07/25 13:27: 1257: Physician ambulance arrived to unit. Report given. [facility] RN Danny updated on increase of FIO2. Original Note: 0745: RN spoke with daughter Naveed Gordon regarding potential transfer for tracheostomy. They state they want all measures taken and are okay with patient being transferred. Dr. Sanders notified of conversation with daughter. 0900: Updates given regarding transfer during rounds. Dr. Sharma working on patient transfer 1047: RN notified bed is available at [facility] in [place] and pickup is set for 1230. RN called report to [employer] at [facility] using [phone], call back number provided in case of further questions. Patient mother Remedios and daughter Naveed are currently at bedside and updated on transfer plan. Dr. Sanders and Dr. Sharma notified of bed assignment.
--- NOTE | 2025-11-07 11:16 | WOUNDNOTE ---
Was asked to see patient for wounds to bilateral legs. patient is known to this nurse from previous admissions. pt currently intubated and awaiting bed at [facility] for trach placement. mother present at bedside. no wounds noted to legs at this time. some chronic venous stasis changes and dry skin noted. patient with a dry calloused area to the left medial great toe. no redness or drainage noted. applied lotion to bilateral lower legs and feet. no need for wound care at this time.
--- NOTE | 2025-11-07 11:17 | CASEMGMT ---
Edi Manager notified this RN CM that the pt is requiring transfer to a tertiary facility, after discussion with ENT. Edi Manager states that the pt has been accepted by [facility]. Pt's RN states that [facility] has a bed and that transport has been set up already. TC to pt's CM and notified of disposition. No further CM needs identified.
--- NOTE | 2025-11-07 12:43 | PCM.RX.CS ---
Consult Antibiotic Management Pharmacy has been consulted to manage selected antibiotic: Vancomycin Type of Intervention Type of Consult: Follow-up Prior Doses of Antibiotics Prior Doses of Antibiotics Received/Current Regimen: 11/07/25 @ 0212 Vancomycin 1500mg 11/07/25 @ 1000 Vancomycin 1500mg Labs Labs: Sodium 148 mmol/L (133-145) H 11/07/25 03:15 Potassium 3.8 mmol/L (3.3-5.1) 11/07/25 03:15 Chloride 108 mmol/L (98-108) 11/07/25 03:15 Carbon Dioxide 27.1 mmol/L (21.0-32.0) 11/07/25 03:15 Anion Gap 13 (5-15) 11/07/25 03:15 BUN 27 mg/dL (4-19) H 11/07/25 03:15 Creatinine 0.81 mg/dL (0.70-1.20) 11/07/25 03:15 Est GFR (MDRD) Non-Af 90 (>60) 11/07/25 03:15 BUN/Creatinine Ratio 33.4 RATIO (10-20) H 11/07/25 03:15 Glucose 344 mg/dL (70-99) H 11/07/25 03:15 Vancomycin Trough 21.2 ug/mL (5.0-15.0) H 11/06/25 01:41 Microbiology Microbiology: Microbiology 10/31/25 21:40 Sputum, Induced/Lukens Gram Stain - Final 10/31/25 21:40 Sputum, Induced/Lukens Respiratory Culture - Final Staphylococcus aureus 11/01/25 09:15 Urine Catheter - Choe Urine Culture - Final Presumptive E. coli 10/31/25 21:50 Blood Culture (Wb) - Arm Left Blood Culture - Final Coag Negative Staph 10/31/25 21:38 Blood Culture (Wb) - Right Hand Bacteria Detection (PCR) - Final Staphylococcus epidermidis mecA Resistance Marker 10/31/25 21:38 Blood Culture (Wb) - Right Hand Blood Culture - Final Staphylococcus epidermidis 11/01/25 15:25 Mucosa - Nasopharyngeal Coronavirus COVID-19 PCR - Final 11/01/25 15:25 Mucosa - Nasopharyngeal Respiratory Panel (PCR) - Final Dosing Weight Weight used for dosin kg Estimated Creatinine Clearance Estimated Creatinine Clearance: 145 Pharmacy Plan for Drug Dosing Pharmacy Plan for Drug Dosing: Vancomycin 1500mg every 8 hours Pharmacy Service will continue to monitor and adjust dosing as required. Follow-Up Labs Follow-Up Labs: Trough: Vancomycin Date/Time Labs Ordered Labs to be done on [date and time ordered]: 11/08/25 @ 0200
--- NOTE | 2025-11-07 12:48 | WOUNDNOTE ---
wound photo: left great toe
--- NOTE | 2025-11-07 12:49 | WOUNDNOTE ---
skin photo: left lower leg
--- NOTE | 2025-11-07 12:50 | WOUNDNOTE ---
skin photo: right lower leg
--- NOTE | 2025-11-07 13:51 | PCM.DC.SUM ---
Providers Date of Admission: 10/31/25 Date of Discharge: 11/07/25 Primary Care Physician: Dr. 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 Acute on chronic combined respiratory failure #2 septic shock secondary to UTI and pneumonia #3 encephalopathy-metabolic in nature #4 class III obesity #5 acute on chronic congestive heart failure with preserved ejection fraction #6 acute cystitis from E. coli #7 pneumonia with MSSA #8 type 2 diabetes #9 essential hypertension Medications at Discharge Home Medications multivit-iron 18 mg-folic acid 400 mcg-calcium 500 mg-minerals tablet 1 ea PO DAILY supplement 03/26/17 omeprazole 40 mg capsule,delayed release 40 mg PO DAILY GERD 12/15/18 loratadine 10 mg tablet 10 mg PO DAILY Allergies 03/01/20 apixaban 5 mg tablet 5 mg PO BID blood thinner 08/20/20 diltiazem HCl 120 mg capsule,extended release 24 hr 120 mg PO DAILY heart rate 08/20/20 lisinopril 10 mg tablet 10 mg PO DAILY blood pressure 03/26/21 metformin 500 mg tablet,extended release 24 hr 1,000 mg PO DAILY diabetes 03/26/21 metoprolol succinate 25 mg tablet,extended release 24 hr 25 mg PO DAILY blood pressure 03/26/21 atorvastatin 80 mg tablet 80 mg PO QHS cholesterol 02/07/22 furosemide 40 mg tablet 40 mg PO DAILY diuretic 09/22/22 albuterol sulfate 2.5 mg/3 mL (0.083 %) solution for nebulization 2.5 mg inhalation Q2H PRN SOB 12/09/22 fenofibrate nanocrystallized 145 mg tablet 145 mg PO DAILY CHOLESTEROL 12/09/22 insulin glargine U-300 conc 300 unit/mL (3 mL) subcutaneous pen (Toujeo Max U-300 SoloStar) 104 unit subcut BID diabetes 07/14/23 duloxetine 60 mg capsule,delayed release 60 mg PO DAILY 11/09/24 ergocalciferol (vitamin D2) 1,250 mcg (50,000 unit) capsule (Vitamin D2) 1,250 mcg PO QWEEK vitamin 11/09/24 ferrous sulfate 325 mg (65 mg iron) tablet (FeroSul) 325 mg PO DAILY supplement 11/09/24 lorazepam 1 mg tablet 1 mg PO TID anxiety 11/09/24 methocarbamol 750 mg tablet 1,500 mg PO TID muscle spasm 08/16/25 oxycodone 15 mg tablet 15 mg PO Q6H PRN PRN pain 08/16/25 pregabalin 150 mg capsule 150 mg PO TID pain 08/16/25 semaglutide 2 mg/dose (8 mg/3 mL) subcutaneous pen injector (Ozempic) 2 mg subcut QWEEK diabetes 08/16/25 diazepam 5 mg tablet (Valium) 5 mg PO TID PRN muscle spasm 5 days #15 tabs 10/28/25 insulin lispro 100 unit/mL subcutaneous pen (Humalog KwikPen (U-100) Insulin) 20 unit subcut TID hyperglycemia 10/28/25 BIPAP -Bilevel Positive Airway Pressure ([facility] INFORMATIONAL USE ONLY) LOGAN 11/01/25 oxygen hypoxia 11/01/25 potassium chloride 20 mEq tablet,extended release(part/cryst) 20 meq PO DAILY hypokalemia 11/01/25 Hospital Course Operations None Summary of Care Provided Minutes Spent on Discharge: 32 Hospital Course: 50-year-old white female was seen in the emergency room at [facility] she had an extensive medical history including diabetes pneumonia congestive heart failure and renal disease, she was intubated in the emergency room due to respiratory failure, white blood cell count was elevated patient's urinalysis was positive for nitrites and +3 bacteria blood gas on nasal cannula oxygen before intubation showed a pH of 7.39, pO2 57.7 pO2 of 39. Chest x-ray showed cardiomegaly and vascular congestion. Patient was admitted to ICU and seen by intensive care medicine, urine culture resulted and showing E. coli, she had MSSA in her sputum and was felt to have pneumonia. Patient was seen in consultation by infectious diseases. Patient required high levels of PEEP while hospitalized on the ventilator. It was felt that the patient would be unable to be weaned from respiratory support in the running specialist recommended transferring to tertiary facility for possible trach and PEG. On 11/07/2025, patient was seen and examined: On examination she was sedated and on the ventilator, she does not appear to be in any distress. Vital signs as documented. Skin warm and dry and without overt rashes. Neck without JVD, thyroid appears normal, trachea is midline, neck is supple. Lungs clear, normal air movement was noted. Heart exam notable for regular rhythm, normal sounds and absence of murmurs, rubs or gallops. Abdomen unremarkable and without evidence of organomegaly, masses, or abdominal aortic enlargement, bowel sounds are present in all 4 quadrants, no abdominal tenderness was noted. Extremities nonedematous, no cyanosis was noted, no clubbing was noted. Neuro: Cranial nerves II through XII are grossly intact, no focal motor deficits were noted, sensation to light touch and pinprick is intact, motor exam 5/5 throughout. Psych: Patient was sedated and on the ventilator Patient was transferred to [facility] for further care on 11/07/2025 in stable condition Weight / BMI Weight Weight: 190 kg Body Mass Index (BMI) 69.7 ABG / Lab / Microbiology Data 11/07/25 03:15 11/07/25 03:15 Laboratory: Laboratory Results - last 24 hr 11/06/25 13:43: POC Glucose 305 H 11/06/25 17:13: POC Glucose 302 H 11/07/25 03:15: WBC 10.5, RBC 3.35 L, Hgb 8.9 L, Hct 31.0 L, MCV 92.5, MCH 26.6 L, MCHC 28.7 L, RDW Std Deviation 49.6 H, RDW Coeff of Darrion 14.6, Plt Count 275, MPV 11.1, Immature Gran % (Auto) 1.500 H, Neut % (Auto) 79.2 H, Lymph % (Auto) 12.0 L, [place] % (Auto) 3.2, Eos % (Auto) 3.5, Baso % (Auto) 0.6, Absolute Neuts (auto) 8.4 H, Absolute Lymphs (auto) 1.26, Nucleated RBC % 0.2, Sodium 148 H, Potassium 3.8, Chloride 108, Carbon Dioxide 27.1, Anion Gap 13, BUN 27 H, Creatinine 0.81, Estim Creat Clear Calc 145.91, Est GFR (MDRD) Non-Af 90, BUN/Creatinine Ratio 33.4 H, Glucose 344 H, Calcium 8.9 11/07/25 09:49: POC Glucose 289 H Microbiology: Microbiology 10/31/25 21:38 Blood Culture (Wb) - Right Hand Bacteria Detection (PCR) - Final Staphylococcus epidermidis mecA Resistance Marker 10/31/25 21:38 Blood Culture (Wb) - Right Hand Blood Culture - Final Staphylococcus epidermidis 11/01/25 09:15 Urine Catheter - Choe Urine Culture - Final Presumptive E. coli 10/31/25 21:40 Sputum, Induced/Lukens Gram Stain - Final 10/31/25 21:40 Sputum, Induced/Lukens Respiratory Culture - Final Staphylococcus aureus 10/31/25 21:50 Blood Culture (Wb) - Arm Left Blood Culture - Final Coag Negative Staph 11/01/25 15:25 Mucosa - Nasopharyngeal Coronavirus COVID-19 PCR - Final 11/01/25 15:25 Mucosa - Nasopharyngeal Respiratory Panel (PCR) - Final ABG: ABG 11/06/25 11/07/25 17:53 04:36 Specimen Type ART ART Sample Site R Radial L Radial pH 7.38 7.36 Bicarbonate Actual 31.9 H 30.5 H Total CO2 34 32 Base Excess 7 H 5 H O2 Saturation 82 L 83 L O2 % 80.0 80.0 ABG pCO2 53.7 H 53.7 H ABG pO2 48 L 50 L Meño Test Positive Respiration Rate 14 24 O2 Delivery Device Adult Vent Adult Vent Vent Mode AC AC Tidal Volume 480.0 400.0 POC PEEP 8 12 Radiography Diagnostic Testing: Radiology Impression Chest X-Ray 11/06/25 05:30 IMPRESSION: No significant interval change. Reading [facility] Chest X-Ray 11/06/25 18:00 IMPRESSION: Diffuse airspace disease, not significantly changed from prior study. Stable supportive apparatus. Reading Location: [facility] Chest X-Ray 11/07/25 05:30 IMPRESSION: Tubes and lines in position. Heart size is obscured by diffuse interstitial and alveolar infiltrates. There is consolidation at the right base which is increased. A component of effusion is not excluded. Reading Location: [facility] D/C Instructions DC O2, CPAP, BIPAP Needs Home O2 Discharge instructions: No DC home with Oxygen: No Meaningful Use Info Meaningful Use Meaningful Use Diagnoses (Choose all that apply): None applicable Discharge Plan Admission Admit Date/Time: 10/31/25 23:54 Attending Provider: Andrea Jason Primary Care Provider: Shad Love Consulting Providers: Tomer Rosario; Floyd Tafoya; Berlin Dumont; Shad Sanders; Jersey Trejo; Nat Bloom; Nii Watts; Matthieu Villela; Juan José Power; Alba Smith; Juarez Velasquez; Bright Boyer; Kayla James; Jamie Nam; Norman Mccord; Eulogio Zurita; Jessie Islas; Emperatriz Blake; Laci Cortez; Silva Westbrook; Omar Maldonado; Andrea Fernández; Princess Calvert; Payton Jackson; Melanie Huston; Abbe Werner; Princess Aparicio; Liam Tapia; Keith Rod; Wayne Lenz; Ian Anderson; Jf Smith; Jeremy Leigh; Vincent Coppola; Steff Freeman; Tali,Carolee; Toyin,Samih; Grupo Chavez; Francesco,Jason; Agapito Briseno; Uziel Hunter; Hubert Luu; Leonides Mora; Alec Gonzalez; Jersey Pradhan Discharge Orders/Prescriptions Prescriptions: No Action loratadine 10 mg tablet 10 mg PO DAILY lisinopril 10 mg tablet 10 mg PO DAILY Patient Comments: TAKE 1 TABLET BY MOUTH EVERY DAY metformin 500 mg tablet extended release 24 hr 1,000 mg PO DAILY metoprolol succinate 25 mg tablet extended release 24 hr 25 mg PO DAILY Patient Comments: TAKE 1 TABLET BY MOUTH EVERY DAY atorvastatin 80 mg tablet 80 mg PO QHS yahqbavm-yebh-ND-calcium-mins 1 EACH tablet 1 ea PO DAILY Patient Comments: vitamin omeprazole 40 MG capsule,delayed release(DR/EC) 40 mg PO DAILY diltiazem HCl 120 MG capsule 120 mg PO DAILY apixaban 5 MG tablet 5 mg PO BID furosemide 40 mg tablet 40 mg PO DAILY albuterol sulfate 2.5 mg /3 mL (0.083 %) solution for nebulization 2.5 mg inhalation Q2H PRN (Reason: SOB) fenofibrate nanocrystallized 145 mg tablet 145 mg PO DAILY insulin glargine U-300 conc [Toujeo Max U-300 SoloStar] 300 unit/mL (3 mL) insulin pen 104 unit SUBCUT BID Patient Comments: PT STATES SHE TAKES THIS BUT DOES NOT KNOW HOW OFTEN OR HOW MANY UNITS ferrous sulfate [FeroSul] 325 mg (65 mg iron) tablet 325 mg PO DAILY ergocalciferol (vitamin D2) [Vitamin D2] 1,250 mcg (50,000 unit) capsule 1,250 mcg PO QWEEK lorazepam 1 mg tablet 1 mg PO TID duloxetine 60 mg capsule,delayed release(DR/EC) 60 mg PO DAILY oxycodone 15 mg tablet 15 mg PO Q6H PRN PRN (Reason: pain) methocarbamol 750 mg tablet 1,500 mg PO TID pregabalin 150 mg capsule 150 mg PO TID Ozempic 2 mg/dose (8 mg/3 mL) pen injector 2 mg SUBCUT QWEEK Patient Comments: [NO ORIGINAL SIG] insulin lispro [Humalog KwikPen Insulin] 100 unit/mL insulin pen 20 unit subcut TID diazepam [Valium] 5 mg tablet 5 mg PO TID PRN (Reason: muscle spasm) 5 Days Qty: 15 0RF potassium chloride 20 mEq tablet,ER particles/crystals 20 meq PO DAILY oxygen Patient Comments: 5L NC continuously per notes, DME:[employer] BIPAP -Bilevel Positive Airway Pressure ([facility] INFORMATIONAL USE ONLY) Patient Comments: per notes, patient has a NIV at home with unknown settings, DME: [employer] Referrals / Follow Up: Shad Love DO [Primary Care Provider, Internal Medicine] Care Physician,No Primary [Non-Staff, Medical] Disposition Disposition (needs filled in before D/C Order can be placed): Acute Care Hospital Charges/Coding Visit Charges Inpatient E&M: 58587 Disch Hosp >30min
== END 2025-11-07 13:50 | disposition short-term general hospital (02) | DRG 870 ==
LOC: ED 21:40 → ICU 11-01 00:04
PROVIDERS: Family Medicine; Internal Medicine; Internal Medicine Critical Care Medicine; Admitting Provider Family Medicine; Emergency Provider Emergency Medicine; PCP Internal Medicine; Visit Provider Internal Medicine
DX: A41.51 Sepsis due to Escherichia coli [E. coli] (principal); J96.22 Acute and chronic respiratory failure with hypercapnia; R65.21 Severe sepsis with septic shock; J96.21 Acute and chronic respiratory failure with hypoxia; I50.33 Acute on chronic diastolic (congestive) heart failure; J15.211 Pneumonia due to Methicillin susceptible Staphylococcus aureus; G93.41 Metabolic encephalopathy; J15.5 Pneumonia due to Escherichia coli; E66.2 Morbid (severe) obesity with alveolar hypoventilation; J44.0 Chronic obstructive pulmonary disease with (acute) lower respiratory infection; I24.89 Other forms of acute ischemic heart disease; Z68.45 Body mass index [BMI] 70 or greater, adult; N17.9 Acute kidney failure, unspecified; E87.0 Hyperosmolality and hypernatremia; I47.10 Supraventricular tachycardia, unspecified; N30.00 Acute cystitis without hematuria; I11.0 Hypertensive heart disease with heart failure; E03.9 Hypothyroidism, unspecified; F32.A Depression, unspecified; D63.8 Anemia in other chronic diseases classified elsewhere; E11.65 Type 2 diabetes mellitus with hyperglycemia; I48.91 Unspecified atrial fibrillation; E11.42 Type 2 diabetes mellitus with diabetic polyneuropathy; Z79.4 Long term (current) use of insulin; K21.9 Gastro-esophageal reflux disease without esophagitis; E78.5 Hyperlipidemia, unspecified; I25.2 Old myocardial infarction; F17.290 Nicotine dependence, other tobacco product, uncomplicated; E83.51 Hypocalcemia; F41.9 Anxiety disorder, unspecified; E83.39 Other disorders of phosphorus metabolism; Z83.3 Family history of diabetes mellitus; E66.813 Obesity, class 3; R45.1 Restlessness and agitation; B95.7 Other staphylococcus as the cause of diseases classified elsewhere; Z99.81 Dependence on supplemental oxygen; Z91.198 Patient's noncompliance with other medical treatment and regimen for other reason; Z79.01 Long term (current) use of anticoagulants; Z79.84 Long term (current) use of oral hypoglycemic drugs; Z79.85 Long-term (current) use of injectable non-insulin antidiabetic drugs; Z79.890 Hormone replacement therapy; Z79.899 Other long term (current) drug therapy; Z86.711 Personal history of pulmonary embolism
CPT/HCPCS: 31500; 31720; 36569; 36600; 51702; 71045; 80048; 80053; 80202; 81001; 82550; 82803; 82962; 83605; 83735; 83880; 84100; 84478; 84484; 85025; 85610; 85730; 87040; 87070; 87077; 87086; 87088; 87149; 87186; 87205; 87631; 87633; 87635; 93005; 94002; 94003; 94660; 96374; 96375; 97802; 97803; 99252; 99285; P9047; A4216; G0463; J0696; J1938